=== PATIENT | female | born 1935 | race Caucasian/White ===

== ENCOUNTER 2024-07-25 14:27 | Inpatient (IN) | payer MEDICARE, OTHER, MEDICAID, SELFPAY ==
[2024-07-25] VITALS (7 sets, daily range): BP systolic 129–172; BP diastolic 51–83; PULSE 63–84; RESP 16–18; TEMP 36.6–36.8; O2SAT 92–99; BMI 21.1; BMI 20.9
--- NOTE | 2024-07-25 14:33 | EDS_ITS ---
HPI HPI - Fall History of Present Illness Chief Complaint: Fall Informant: patient Occured/Mechanism Occurred: Today Mechanism/Context: Yes same level fall Pain/Injury Location: Right hip Quality of Pain: Sharp Worsened by: Movement Relieved by: Rest Associated Symptoms Associated Symptoms: Positive for Inability to ambulate; Negative for Parasthesias, Weakness, Loss of function, Loss of consciousness or Amnesia Narrative Narrative: Patient presents with right hip pain that began after a fall today. Patient states she was reaching to open the door and she fell forward. Patient states she landed on her right hip. Patient states her pain is sharp. Patient states it is worse with movement. Patient states it is better with rest. Patient states she was unable to stand after the fall. Patient denies any head injury or loss of consciousness. Patient denies any other injuries. [facility] Medical History (Updated 07/25/24 @ 17:[address] Thanh Mclaughlin ) Polyneuropathy PVD (peripheral vascular disease) Osteoporosis Hypothyroidism GERD (gastroesophageal reflux disease) Hypertensive heart and chronic kidney disease stage 3 Anxiety Asthma Sleep apnea COPD (chronic obstructive pulmonary disease) Gout CKD (chronic kidney disease) stage 3, GFR 30-59 ml/min Major depressive disorder CHF (congestive heart failure) Allergy/AdvReac Type Severity Reaction Status Date / Time cephalexin Allergy PT UNSURE Verified 07/25/24 14:52 OF REACTION clarithromycin Allergy PT UNSURE Verified 07/25/24 14:52 OF REACTION clindamycin Allergy PT UNSURE Verified 07/25/24 14:52 OF REACTION erythromycin base Allergy PT UNSURE Verified 07/25/24 14:52 OF REACTION eszopiclone Allergy PT UNSURE Verified 07/25/24 14:52 OF REACTION Fish Containing Products Allergy PT UNSURE Verified 07/25/24 14:52 (seafood) OF REACTION fish derived Allergy PT UNSURE Verified 07/25/24 14:52 OF REACTION lincomycin Allergy PT UNSURE Verified 07/25/24 14:52 OF REACTION lorazepam Allergy PT UNSURE Verified 07/25/24 14:52 OF REACTION mushroom (mushrooms) Allergy PT UNSURE Verified 07/25/24 14:52 OF REACTION NSAIDS (Non-Steroidal Allergy PT UNSURE Verified 07/25/24 14:52 Anti-Inflamma OF REACTION Penicillins Allergy PT UNSURE Verified 07/25/24 14:52 OF REACTION rofecoxib Allergy PT UNSURE Verified 07/25/24 14:52 OF REACTION salicylates Allergy PT UNSURE Verified 07/25/24 14:52 OF REACTION temazepam Allergy PT UNSURE Verified 07/25/24 14:52 OF REACTION Tetracyclines Allergy PT UNSURE Verified 07/25/24 14:52 OF REACTION trazodone Allergy PT UNSURE Verified 07/25/24 14:52 OF REACTION Surgical History (Updated 07/25/24 @ 14:[address] Jacobo Moya DO) History of cataract surgery History of lysis of adhesions Hx of hysterectomy Hx of total knee replacement Presence of aortocoronary bypass graft Social History Smoking Status: Former smoker ROS ROS ED Constitutional Constitutional ED: Denies chills or fever(s) Eyes Eyes: Denies blurry vision or change in vision ENT ENT ED: Reports rhinorrhea; Denies sore throat Cardiovascular Cardiovascular: Denies chest pain or palpitations Respiratory/Chest Respiratory/Chest: Denies cough or dyspnea Gastrointestinal Gastrointestinal: Denies nausea or vomiting Genitourinary Genitourinary ED: Denies dysuria or hematuria Musculoskeletal Musculoskeletal: Denies back pain or neck pain Integumentary Denies abscess or rash Neurologic Neurologic: Denies headache(s) or weakness Allergic/Immunologic Allergic/Immunologic ED: Denies mouth swelling or urticaria EXAM Physical Exam Const Vital Signs: 07/25/24 14:32 Temperature 98.1 F Temperature Source Oral Pulse Rate 84 Respiratory Rate 16 Blood Pressure 130/55 H Blood Pressure Mean 80 Pulse Ox 95 Oxygen Delivery Method Nasal Cannula Oxygen Flow Rate (L/min) 2 Positive well nourished and well developed General Appearance ED: well developed HEENT Reports normocephalic atraumatic Neck full ROM and supple Resp normal respiratory effort and clear to auscultation bilaterally Cardio regular rate and regular rhythm GI non-tender and non-distended Palpation: soft Extremity Extremity Narrative: There is tenderness over the right hip. There is shortening and external rotation of the right lower extremity. There is pain with internal and external rotation of the right hip. Pedal pulses are equal bilaterally. Sensation was intact to light touch in the lower extremities bilaterally. There is no calf tenderness noted. Neuro oriented x3, CN's II-XII intact bilaterally, moves all extremities, no focal motor deficits and no sensory deficits noted Sensorium / Orientation: alert Motor Exam: strength 5/5 throughout Psych mental status grossly normal MDM MDM MDM Narrative Medical decision making narrative: Differential diagnosis includes hip fracture, contusion, sprain, and urinary tract infection. X-rays of the right hip will be obtained to assess for fracture. Since it is likely that there is a fracture of the patient's femoral neck, medical screening labs will be obtained. EKG will be obtained to assess for cardiac dysrhythmia and cardiac ischemia. Chest x-ray will be obtained to assess for pneumonia and bronchitis. CBC will be obtained to assess for leuko cytosis and anemia. Basic metabolic profile will be obtained to assess for electrolyte abnormality and renal function. PT with INR and PTT will be obtained to assess for coagulopathy. History & Record Review Additional record(s) reviewed:: Prior labs Lab Data Attestation: I reviewed the patient's lab results. Lab results narrative: CBC was reviewed. There is a mild anemia with a hemoglobin of 10.7 and hematocrit 31.6. The remainder is within normal limits. PT was INR and PTT were within normal limits. Basic metabolic profile was reviewed and was essentially within normal limits. Labs: Laboratory Results - last 24 hr 07/25/24 14:35 WBC 7.6 RBC 3.28 L Hgb 10.7 L Hct 31.6 L MCV 96.3 MCH 32.6 H MCHC 33.9 RDW Std Deviation 49.4 H RDW Coeff of Tamera 14.1 Plt Count 181 MPV 9.1 Immature Gran % (Auto) 0.400 Neut % (Auto) 69.2 Lymph % (Auto) 22.9 Kay % (Auto) 6.2 Eos % (Auto) 0.9 Baso % (Auto) 0.4 Absolute Neuts (auto) 5.3 Absolute Lymphs (auto) 1.75 Nucleated RBC % 0 PT 13.0 INR 1.0 APTT 27.1 Sodium 134 Potassium 5.0 Chloride 98 Carbon Dioxide 26.5 Anion Gap 9 BUN 13 Creatinine 0.92 Est GFR (MDRD) Non-Af 60 BUN/Creatinine Ratio 13.5 Glucose 126 H Calcium 8.8 Radiography Chest X-Ray - ED: 1 View, Read by ED Physician, Read by Radiologist and Cardiomegaly Diagnostic Testing: Clinical Impression(s) from Imaging Studies Hip/Pelvis X-Ray 07/25/24 15:10 IMPRESSION: Nondisplaced right intertrochanteric fracture of the proximal right femur. Reading Location: [facility] Chest X-Ray 07/25/24 15:15 IMPRESSION: Cardiomegaly and vascular congestion with atelectasis at the lung bases. Reading Location: [facility]-IR-1 Portable 1 view chest x-ray was obtained. On my independent interpretation, lung holden show mild vascular congestion and atelectasis at the lung bases. There is cardiomegaly. Bony thorax is normal. There is no acute process noted. Radiologist also interpreted the x-ray and agrees. X-rays of the right hip were obtained. There are 3 views. On my independent interpretation, there is a nondisplaced intertrochanteric fracture of the right. Radiologist also interpreted the x-rays and agrees. EKG Initial EKG: Attestation: I personally reviewed and interpreted this EKG as follows: Interpretation: Sinus Rhythm (66), RBBB and Non-Specific ST Changes Comments: EKG was obtained. On my independent interpretation, it shows a normal sinus rhythm with a rate of 66. GA interval was normal at 170 ms. QRS interval was prolonged at 144 ms. QTc interval was slightly prolonged at 484 ms. There is borderline right axis deviation at 105. There is a right bundle branch block pattern noted. There are nonspecific ST-T wave changes noted. Prior EKG tracings: not available for review Prior: No Prior Management Discussion w/another healthcare provider: Hospitalist and [employer] Supervisor Treatment and Re-Evaluation Narrative: Patient was advised of her findings. Patient was advised of need for hospitalization. Case was discussed with the hospitalist. He will admit the patient to his service. Case was discussed with Dr. Mclaughlin from orthopedics. He will be in to evaluate the patient. Discharge Plan Dx/Rx/DC Orders Clinical Impression: Closed intertrochanteric fracture of right hip, Fall, Elevated blood pressure reading Disposition Disposition: Acute Care [facility]
--- NOTE | 2024-07-25 14:49 | EKG12_ITS ---
Test Reason : FALL Blood Pressure : */* mmHG Vent. Rate : 66 BPM Atrial Rate : 66 BPM P-R Int : 170 ms QRS Dur : 144 ms QT Int : 462 ms P-R-T Axes : 33 105 10 degrees QTcB Int : 484 ms Normal sinus rhythm Right bundle branch block Abnormal ECG No previous ECGs available Confirmed by NITHYA HUGHES, RIGOBERTO ([id number]), editor city SANDY BAUTISTA ([id number]) on 07/28/2024 5:37:03 AM Referred By: Confirmed By: RIGOBERTO BARRIGA MD
--- NOTE | 2024-07-25 15:10 | RAD_ITS ---
PROCEDURE: HIP, UNI W/ PELVIS 2-3 VIEWS 07/25/2024 REASON FOR EXAM: INJURY/PAIN TECHNIQUE: HIP, UNI W/ PELVIS 2-3 VIEWS COMPARISON: None FINDINGS: Bones: Nondisplaced right intertrochanteric fracture. Joints: Degenerative changes of both hip joints as well as the sacroiliac joints. Soft tissues: Fecal material is seen in the colon. Other: RAD/HIP, UNI W/ Pelvis 2-3 Views IMPRESSION: Nondisplaced right intertrochanteric fracture of the proximal right femur. Reading Location: [facility]
[2024-07-25 15:13] LABS: Absolute Lymphocyte Count 1.75 X10^3/uL (0.83-4.51); Absolute Neutrophil Count 5.3 X10^3/uL (2.0-7.7); Basophil# 0.03 X10^3/uL; Basophil% 0.4 % (0-1); Eosinophil# 0.07 X10^3/uL; Eosinophils% 0.9 % (0-5); Hematocrit 31.6 % (37-47); Hemoglobin 10.7 g/dL (12.0-15.0); Lymphocyte # 1.75 X10^3/ul (0.83-4.51); Lymphocyte % 22.9 % (19-41); Mean Corp Hgb Conc 33.9 g/dL (32-36); Mean Corpuscular Hgb 32.6 pg (27.0-32.0); Mean Corpuscular Volume 96.3 fL (81-99); Mean Platelet Vol. 9.1 fl (6.2-12.0); Monocyte# 0.47 X10^3/uL; Monocyte% 6.2 % (0-10); NRBC Flagged by Analyzer 0 % (0-5); Neutrophil # 5.29 X10^3/uL (2.7-7.7); Neutrophil % 69.2 % (47-70); Platelet Count 181 K/mm3 (150-450); RBC Distribution Width CV 14.1 % (11.6-14.6); RBC Distribution Width SD 49.4 fl (35.1-43.9); Red Blood Count 3.28 M/mm3 (4.2-5.4); White Blood Count 7.6 K/mm3 (4.4-11.0)
--- NOTE | 2024-07-25 15:15 | RAD_ITS ---
PROCEDURE: CHEST 1 VIEW (PORTABLE) 07/25/2024 REASON FOR EXAM: COUGH TECHNIQUE: Frontal view of the chest. COMPARISON: None FINDINGS: Hardware: EKG electrodes are seen. 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 Moderate degree of cardiomegaly. Lungs: Increased markings at the lung bases suggestive of atelectasis and/or scarring. Mild degree of vascular congestion. Bones: Degenerative changes are identified within the thoracic spine. Other: Findings suggestive of hiatal hernia. RAD/Chest 1 View (Portable) IMPRESSION: Cardiomegaly and vascular congestion with atelectasis at the lung bases. Reading Location: [place] [address]
[2024-07-25] MEDS: Ondansetron 4 MG/2 ML Vial IV (15:32)
[2024-07-25] MEDS: Morphine 4 MG/ML Syringe IV ×2 (15:33→17:36)
[2024-07-25 15:51] LABS: Anion Gap 9 (5-15); BUN 13 mg/dL (4-19); BUN/Creat Ratio 13.5 RATIO (10-20); Calcium,Total 8.8 mg/dL (7.6-11.0); Carbon Dioxide 26.5 mmol/L (21.0-32.0); Chloride 98 mmol/L (98-108); Creatinine, Serum 0.92 mg/dL (0.70-1.20); EST Glomerular Filtration Rate 60 (>60); Glucose 126 mg/dL (70-99); Sodium Level 134 mmol/L (133-145)
[2024-07-25 16:01] LABS: Partial Thromboplast Time 27.1 Seconds (24.1-36.2)
--- NOTE | 2024-07-25 16:51 | PCM.HP.STD ---
HPI - General General Date of Admission: 07/25/24 Date of Service: 07/25/24 Chief Complaint: Fall with right hip pain HPI Narrative KATHERINE SEPULVEDA, is a 89 F who presented to [facility] ED on 07/25/2024 with right hip pain after a fall. Patient has history of chronic debility, lives at the [facility]. She had a fall today where she was reaching for her to open the door, fell forward and landed on her right hip. In the ED x-ray confirmed a nondisplaced intertrochanteric fracture. Case was discussed with Dr. Mclaughlin with orthopedics who planning for surgery tomorrow afternoon pending medical evaluation. Hospitalist was then contacted for admission. I saw the patient at bedside in the ED. Patient was fatigued appearing but otherwise laying back fairly comfortably in bed in no acute distress. She was alert and oriented x 3 for me. She stated that the pain medication had only been somewhat helpful for her. If she did not move her pain was controlled, but she did report moderate to severe pain with any movement. She denies any other acute concerns currently. Will be admitted for further management. [facility] Medical History (Updated 07/25/24 @ 22:[address] Hayden Diaz, DO) Polyneuropathy PVD (peripheral vascular disease) Osteoporosis Hypothyroidism GERD (gastroesophageal reflux disease) Hypertensive heart and chronic kidney disease stage 3 Anxiety Asthma Sleep apnea COPD (chronic obstructive pulmonary disease) Gout CKD (chronic kidney disease) stage 3, GFR 30-59 ml/min Major depressive disorder CHF (congestive heart failure) Home Medications ?Medication ?Instructions ?Recorded ?Last Taken ?Type acetaminophen 500 mg tablet 500 mg PO BID [ain 07/25/24 Unknown History atorvastatin 40 mg tablet 40 mg PO DAILY hyperlipidemia 07/25/24 Unknown History azelastine 137 mcg (0.1 %) nasal intranasal allergies 07/25/24 Unknown History spray budesonide 0.5 mg/2 mL suspension mg coppersmith helper 07/25/24 Unknown History for nebulization bupropion HCl 150 mg 24 hr tablet, 150 mg PO DAILY . 07/25/24 Unknown History extended release calcium carbonate PO . 07/25/24 Unknown History cetirizine 5 mg tablet 5 mg PO DAILY . 07/25/24 Unknown History clopidogrel 75 mg tablet 75 mg PO DAILY . 07/25/24 Unknown History dicyclomine 10 mg capsule 10 mg PO TID . 07/25/24 Unknown History doxazosin 2 mg tablet 2 mg PO DAILY . 07/25/24 Unknown History furosemide 20 mg tablet 20 mg PO DAILY . 07/25/24 Unknown History gabapentin 100 mg capsule PO . 07/25/24 Unknown History ipratropium 0.5 mg-albuterol 3 mg ml . 07/25/24 Unknown History (2.5 mg base)/3 mL nebulization soln isosorbide mononitrate 30 mg 30 mg PO DAILY . 07/25/24 Unknown History tablet,extended release 24 hr metoprolol tartrate 25 mg tablet 25 mg PO BID . 07/25/24 Unknown History mirtazapine 30 mg tablet 30 mg PO QHS . 07/25/24 Unknown History montelukast 10 mg tablet 10 mg PO DAILY . 07/25/24 Unknown History multivitamin with folic acid 400 1 tab PO DAILY . 07/25/24 Unknown History mcg tablet (Daily-Carmelo (with folic acid)) pantoprazole 40 mg tablet,delayed 40 mg PO DAILY . 07/25/24 Unknown History release potassium chloride 20 mEq 20 meq PO DAILY . 07/25/24 Unknown History tablet,extended release(part/cryst) sennosides 8.6 mg-docusate sodium 1 tab PO DAILY . 07/25/24 Unknown History 50 mg tablet (Senexon-S) Allergy/AdvReac Type Severity Reaction Status Date / Time cephalexin Allergy PT UNSURE Verified 07/25/24 14:52 OF REACTION clarithromycin Allergy PT UNSURE Verified 07/25/24 14:52 OF REACTION clindamycin Allergy PT UNSURE Verified 07/25/24 14:52 OF REACTION erythromycin base Allergy PT UNSURE Verified 07/25/24 14:52 OF REACTION eszopiclone Allergy PT UNSURE Verified 07/25/24 14:52 OF REACTION Fish Containing Products Allergy PT UNSURE Verified 07/25/24 14:52 (seafood) OF REACTION fish derived Allergy PT UNSURE Verified 07/25/24 14:52 OF REACTION lincomycin Allergy PT UNSURE Verified 07/25/24 14:52 OF REACTION lorazepam Allergy PT UNSURE Verified 07/25/24 14:52 OF REACTION mushroom (mushrooms) Allergy PT UNSURE Verified 07/25/24 14:52 OF REACTION NSAIDS (Non-Steroidal Allergy PT UNSURE Verified 07/25/24 14:52 Anti-Inflamma OF REACTION Penicillins Allergy PT UNSURE Verified 07/25/24 14:52 OF REACTION rofecoxib Allergy PT UNSURE Verified 07/25/24 14:52 OF REACTION salicylates Allergy PT UNSURE Verified 07/25/24 14:52 OF REACTION temazepam Allergy PT UNSURE Verified 07/25/24 14:52 OF REACTION Tetracyclines Allergy PT UNSURE Verified 07/25/24 14:52 OF REACTION trazodone Allergy PT UNSURE Verified 07/25/24 14:52 OF REACTION Surgical History (Updated 07/25/24 @ 14:[address] Jacobo Moya DO) History of cataract surgery History of lysis of adhesions Hx of hysterectomy Hx of total knee replacement Presence of aortocoronary bypass graft Social History Smoking Status: Never smoker ROS Constitutional Constitutional: Reports fatigue; Denies chills, fever(s) or weakness Eyes Eyes: Denies change in vision Cardiovascular Cardiovascular: Denies chest pain, dyspnea on exertion, edema, lightheadedness or palpitations Respiratory/Chest Respiratory/Chest: Denies cough or shortness of breath at rest Gastrointestinal Gastrointestinal: Denies abdominal pain Genitourinary Genitourinary: Denies dysuria Musculoskeletal Musculoskeletal: Reports joint pain; Denies myalgias Neurologic Neurologic: Denies dizziness, focal weakness or headache(s) Vital Signs Vital Signs Vital Signs: 07/25/24 14:32 Temperature 98.1 F Temperature Source Oral Pulse Rate 84 Respiratory Rate 16 Blood Pressure 130/55 H Blood Pressure Mean 80 Pulse Ox 95 Oxygen Delivery Method Nasal Cannula Oxygen Flow Rate (L/min) 2 Physical Exam Const alert, oriented x3, no apparent distress and average body habitus General Appearance: cooperative and comfortable HEENT normocephalic, head/scalp atraumatic, hearing grossly normal bilaterally, nasal mucous membranes and turbinates normal and moist oral mucous membranes Eyes PERRL, EOMs intact bilaterally and conjunctivae normal Neck full ROM Chest inspection of chest normal Resp normal respiratory effort, normal air movement, no use of accessory muscles and clear to auscultation bilaterally Resp Narrative: Breathing comfortably on 4 L nasal cannula at rest. Mild crackles noted and bilateral bases but otherwise good air movement throughout with no wheezing noted. Cardio regular rate, regular rhythm, no murmurs and peripheral pulses 2+ throughout GI normal to inspection, nondistended, normoactive bowel sounds, soft to palpation, non-tender and non-distended Back/Spine normal ROM Extremity Extremity Narrative: Right hip with tenderness to palpation. Did not attempt any movement of the hip. Skin no rashes or lesions noted Psych mental status grossly normal Results Lab / Micro Data 07/25/24 14:35 07/25/24 14:35 Labs: Laboratory Results - last 24 hr 07/25/24 14:35: WBC 7.6, RBC 3.28 L, Hgb 10.7 L, Hct 31.6 L, MCV 96.3, MCH 32.6 H, MCHC 33.9, RDW Std Deviation 49.4 H, RDW Coeff of Tamera 14.1, Plt Count 181, MPV 9.1, Immature Gran % (Auto) 0.400, Neut % (Auto) 69.2, Lymph % (Auto) 22.9, [place] % (Auto) 6.2, Eos % (Auto) 0.9, Baso % (Auto) 0.4, Absolute Neuts (auto) 5.3, Absolute Lymphs (auto) 1.75, Nucleated RBC % 0, PT 13.0, INR 1.0, APTT 27.1, Sodium 134, Potassium 5.0, Chloride 98, Carbon Dioxide 26.5, Anion Gap 9, BUN 13, Creatinine 0.92, Est GFR (MDRD) Non-Af 60, BUN/Creatinine Ratio 13.5, Glucose 126 H, Calcium 8.8 Imaging Radiology Impression Hip/Pelvis X-Ray 07/25/24 15:10 IMPRESSION: Nondisplaced right intertrochanteric fracture of the proximal right femur. Reading Location: [facility]-IR-1 Chest X-Ray 07/25/24 15:15 IMPRESSION: Cardiomegaly and vascular congestion with atelectasis at the lung bases. Reading Location: [facility]-1 Assessment & Plan Assessment/Plan (1) Closed intertrochanteric fracture of right hip: QUALIFIERS: Encounter type: initial encounter Fracture alignment: displaced Qualified Code(s): S72.141A - Displaced intertrochanteric fracture of right femur, initial encounter for closed fracture (2) Acute on chronic heart failure with preserved ejection fraction (HFpEF): PLAN: Plan Patient is an 89-year-old female who presented to [facility] ED on 07/25/2024 with right hip pain after a mechanical fall. 1. Right hip fracture ? Admit under inpatient status to [facility]. Orthopedic surgery consulted. PT/OT/case management consulted. Presented with right hip pain after mechanical fall. Hip/pelvis and femur x-rays confirmed a nondisplaced radial fracture. Per orthopedic surgery, planning for OR for right femur cephalomedullary fixation once medically optimized. Preoperative evaluation as noted below. Pain control with scheduled Tylenol, p.o. oxycodone as needed and IV Dilaudid as needed. DVT prophylaxis per orthopedic surgery. 2. Mild acute on chronic HFpEF with hypoxia, history of CAD with stenting, hypertension, hyperlipidemia, history of CVA ? Last echo in 10/2022 showed EF 70%, LA enlargement but no diastolic dysfunction, no valvular issues. Chest x-ray on admit with cardiomegaly with vascular congestion and atelectasis at lung bases. Not on home oxygen and requiring up to 4 L nasal cannula on admission to maintain appropriate oxygen saturations. Mild lower extremity edema on exam. Patient is normotensive and in normal sinus rhythm, and EKG with no ischemic changes noted. However, will obtain BNP and troponins for further evaluation now and repeat echocardiogram ordered. Will give dose of IV Lasix 40 mg now and give another dose tomorrow morning. Monitor urine output and wean supplemental oxygen as able. Okay to continue home Lopressor, doxazosin, Lasix and Imdur. Continue home statin. Holding Plavix for procedure. 3. Preoperative evaluation ? NSQIP score: Patient is at above average risk of any complication answers complication given age, partially dependent functional status, CHF and hypertension. ? Labs/imaging: Hemoglobin and kidney function stable at baseline. No further labs or imaging required preoperatively. Follow-up CBC and BMP postoperatively. ? Cardiac workup: Mild HFpEF exacerbation as noted above. Repeat echocardiogram, BNP and troponins ordered. ? Medications: Okay to continue Lopressor, doxazosin, Lasix and Imdur. Holding Plavix for procedure, will defer to orthopedics on timing of restarting. ? Prior procedural complications: None. ? Recommendation: Recommend holding on procedure until cardiac workup as above has resulted and patient has been optimized from a volume status standpoint. Will keep patient n.p.o. at midnight in case procedure can be done tomorrow afternoon. 4. Acute on chronic debility, history of bilateral knee replacements ? PT/OT/case management consulted as above. Lives in [facility], will likely be okay to return there on discharge. 5. Mild chronic anemia ? Hemoglobin stable at baseline 10-11 on admission. 6. Anxiety/depression ? Stable. Continue home bupropion and mirtazapine. 7. GERD ? Continue home PPI. DVT prophylaxis: SCDs CODE STATUS: DNR CCA, DNI Expected disposition: Likely back to long-term, TBD Total clinical time spent by myself addressing the patient's medical issues, reviewing all the data, and collaborating with patient's care team: 75 minutes. Charges/Coding Visit Charges Inpatient E&M: 21810 Init Hosp L3
--- NOTE | 2024-07-25 17:06 | PCM.CONS.GEN ---
Assessment & Plan Assessment/Plan (1) Closed intertrochanteric fracture of right hip: QUALIFIERS: Encounter type: initial encounter Fracture alignment: displaced Qualified Code(s): S72.141A - Displaced intertrochanteric fracture of right femur, initial encounter for closed fracture PLAN: Plan Pleasant 89-year-old female frail ground-level fall community ambulator. Sustained right hip intertrochanteric femur fracture History of right total knee arthroplasty Will obtain right femur x-ray Plan for OR 07/26/2024 afternoon if medically cleared right femur cephalomedullary fixation Hold anticoagulant Multiple drug allergies vancomycin ordered preop within 1 hour prior to incision TXA ordered preop HPI Consult Data Date of Consult: 07/25/24 HPI Narrative HPI Narrative: KATHERINE SEPULVEDA, is a 89 F who presents after ground-level fall onto right hip. She immediately had pain and inability ambulate x-rays taken the emergency room department demonstrated a intertrochanteric fracture with lesser trochanteric displacement. Of note she did have prior right total knee arthroplasty many years ago with Dr. Malcom Herron in [facility]. She is on Plavix [facility] Medical History (Updated 07/25/24 @ 17:[address] Thanh Mclaughlin, ) Polyneuropathy PVD (peripheral vascular disease) Osteoporosis Hypothyroidism GERD (gastroesophageal reflux disease) Hypertensive heart and chronic kidney disease stage 3 Anxiety Asthma Sleep apnea COPD (chronic obstructive pulmonary disease) Gout CKD (chronic kidney disease) stage 3, GFR 30-59 ml/min Major depressive disorder CHF (congestive heart failure) Allergy/AdvReac Type Severity Reaction Status Date / Time cephalexin Allergy PT UNSURE Verified 07/25/24 14:52 OF REACTION clarithromycin Allergy PT UNSURE Verified 07/25/24 14:52 OF REACTION clindamycin Allergy PT UNSURE Verified 07/25/24 14:52 OF REACTION erythromycin base Allergy PT UNSURE Verified 07/25/24 14:52 OF REACTION eszopiclone Allergy PT UNSURE Verified 07/25/24 14:52 OF REACTION Fish Containing Products Allergy PT UNSURE Verified 07/25/24 14:52 (seafood) OF REACTION fish derived Allergy PT UNSURE Verified 07/25/24 14:52 OF REACTION lincomycin Allergy PT UNSURE Verified 07/25/24 14:52 OF REACTION lorazepam Allergy PT UNSURE Verified 07/25/24 14:52 OF REACTION mushroom (mushrooms) Allergy PT UNSURE Verified 07/25/24 14:52 OF REACTION NSAIDS (Non-Steroidal Allergy PT UNSURE Verified 07/25/24 14:52 Anti-Inflamma OF REACTION Penicillins Allergy PT UNSURE Verified 07/25/24 14:52 OF REACTION rofecoxib Allergy PT UNSURE Verified 07/25/24 14:52 OF REACTION salicylates Allergy PT UNSURE Verified 07/25/24 14:52 OF REACTION temazepam Allergy PT UNSURE Verified 07/25/24 14:52 OF REACTION Tetracyclines Allergy PT UNSURE Verified 07/25/24 14:52 OF REACTION trazodone Allergy PT UNSURE Verified 07/25/24 14:52 OF REACTION Surgical History (Updated 07/25/24 @ 14:[address] Jacobo Moya DO) History of cataract surgery History of lysis of adhesions Hx of hysterectomy Hx of total knee replacement Presence of aortocoronary bypass graft Social History Smoking Status: Former smoker Physical Exam Const alert, oriented x3 and no apparent distress Constitutional Narrative: She is seen with her son who is her power of assistant attorney general Appearance: cooperative Extremity Extremity Narrative: Exquisitely positive logroll, she does have a scar on her knee from her prior knee replacement surgery it is large. She is neurovascular intact although she does have chronic neuropathy of her foot. Her compartments are soft palpable pedal pulses intact sensation to light touch she is able to wiggle toes and ankle. Lab / Micro Data 07/25/24 14:35 07/25/24 14:35 Labs: Laboratory Results - last 24 hr 07/25/24 14:35: WBC 7.6, RBC 3.28 L, Hgb 10.7 L, Hct 31.6 L, MCV 96.3, MCH 32.6 H, MCHC 33.9, RDW Std Deviation 49.4 H, RDW Coeff of Tamera 14.1, Plt Count 181, MPV 9.1, Immature Gran % (Auto) 0.400, Neut % (Auto) 69.2, Lymph % (Auto) 22.9, [place] % (Auto) 6.2, Eos % (Auto) 0.9, Baso % (Auto) 0.4, Absolute Neuts (auto) 5.3, Absolute Lymphs (auto) 1.75, Nucleated RBC % 0, PT 13.0, INR 1.0, APTT 27.1, Sodium 134, Potassium 5.0, Chloride 98, Carbon Dioxide 26.5, Anion Gap 9, BUN 13, Creatinine 0.92, Est GFR (MDRD) Non-Af 60, BUN/Creatinine Ratio 13.5, Glucose 126 H, Calcium 8.8 Imaging Radiology Impression Hip/Pelvis X-Ray 07/25/24 15:10 IMPRESSION: Nondisplaced right intertrochanteric fracture of the proximal right femur. Reading Location: [facility]- Chest X-Ray 07/25/24 15:15 IMPRESSION: Cardiomegaly and vascular congestion with atelectasis at the lung bases. Reading Location: [facility]-
--- NOTE | 2024-07-25 17:10 | CASEMGMT ---
Social Work SW met with patient and patients son. Patient states she is planning to return to [facility] when able. No further needs identified at this time. Stefani Coates, TETRYL BOILING TUB OPERATOR, SENIOR NET WEB DEVELOPER
--- NOTE | 2024-07-25 17:20 | ED.RN ---
multiple attempts by [address] catheter[address] unsuccessful. to place purewic.
--- NOTE | 2024-07-25 17:40 | RAD_ITS ---
PROCEDURE: FEMUR MIN 2 VIEWS 07/25/2024 REASON FOR EXAM: FRACTURE SURGERY PLANNING TECHNIQUE: FEMUR MIN 2 VIEWS COMPARISON: 07/25/2024 radiograph. FINDINGS: Right knee arthroplasty. Nondisplaced intertrochanteric fracture of the right femur. Degenerative changes of the right hip. RAD/Femur Min 2 Views IMPRESSION: Nondisplaced intertrochanteric fracture. Reading Location: [place] [id number]
--- NOTE | 2024-07-25 17:42 | ED.RN ---
pt not on wt bed. unable to obtain wt at this time.
[2024-07-25] MEDS: oxyCODONE 5 MG Tablet PO (18:51)
[2024-07-25] MEDS: Acetaminophen 500 MG Tablet 1000 MG PO ×2 (18:52→22:28)
[2024-07-25 19:08] LABS: Bacteria 0 SEEN /hpf (None Seen); Mucous, Urine 0 SEEN /hpf (<or=2+)
[2024-07-25 19:11] LABS: Color, Urine Straw (Yellow); Glucose, Dipstick Normal (Normal); Ketone-Dipstick Negative (Negative); Leukocyte Esterase-Dipstick Negative /ul (Negative); Nitrite-Dipstick Negative (Negative); Occult Blood-Urine 10 /ul (Negative); Protein-Dipstick 30 mg/dl (Negative); Urine Bilirubin Dipstick Negative (Negative); Urine Clarity Clear (Clear); Urine Urobilinogen Normal (Normal)
[2024-07-25 19:20] LABS: Red Blood Cells-Urine 0-5 SEEN /hpf (0-5); Squamous Epithelial Cells - UA 0-5 SEEN /hpf (5-10); Transitional Epithelial - Ur 0-5 SEEN /hpf (0-5); White Blood Cells 0-5 SEEN /hpf (0-5)
[2024-07-25] MEDS: Furosemide 40 MG/4 ML Vial IV (22:16)
[2024-07-25] MEDS: HYDROmorphone 0.5 MG/0.5 ML SYRINGE IV (22:16)
[2024-07-25] MEDS: 0.9% Saline Lock 10 ML Syringe IV (22:20)
--- NOTE | 2024-07-25 22:20 | ECHOD_ITS ---
Reason For Study Reason For Study: CHF Procedure This was a 2D Doppler, Color Flow transthoracic echocardiogram. Exam performed portable in patient room. Left Ventricle Normal LV size. Left ventricular systolic function is normal. The left ventricular ejection fraction is 70 %. Stage 1 diastolic dysfunction. No regional wall motion abnormalities noted. Right Ventricle Normal RV size. Normal systolic function. Atria Normal left atrium. Normal right atrium. Hypermobile atrial septum. Mitral Valve There is mild mitral annular calcification. Posterior leaflet mitral valve prolapse. Mild-Moderate (1-2+) anteriorly directed mitral valve insufficiency. Tricuspid Valve Mild focal thickening of the tricuspid valve, posterior leaflet. Moderate (2+) tricuspid valve insufficiency. Pulmonary artery systolic pressure is 65 mmHg. Moderate pulmonary hypertension. Aortic Valve Trisinus/trileaflet aortic valve. Mild focal aortic valve calcification. Pulmonic Valve Normal pulmonic valve. Great Vessels Mildly calcified aortic root. The pulmonary artery is normal size. Normal inferior vena cava. Pericardium/Pleural No pericardial effusion. Medication Performed a rapid injection of agitated mix of 9 cc saline and 1cc air to assess for atrial septal defect. MMode/2D Measurements & Calculations LVIDd: 3.3 cm IVSd: 1.2 cm Ao root diam: 2.8 cm LVIDs: 1.8 cm LVPWd: 1.2 cm RVDd: 3.8 cm FS: 44.9 % LAV(MOD-bp): 55.0 ml LVAd ap4: 17.6 cm2 SV(MOD-sp4): 33.7 ml LAV(MOD-sp2): 44.5 ml LVLd ap4: 5.5 cm LAV(MOD-sp4): 69.7 ml EDV(MOD-sp4): 47.0 ml EDV(sp4-el): 47.7 ml LVAs ap4: 8.2 cm2 LVLs ap4: 4.1 cm ESV(MOD-sp4): 13.3 ml ESV(sp4-el): 13.8 ml EF(MOD-sp4): 71.8 % EF(sp4-el): 71.0 % SV(sp4-el): 33.9 ml LA A4 area: 22.4 cm2 LA dimension(2D): 3.0 cm RA A4 area: 13.4 cm2 TAPSE: 2.0 cm Time Measurements MV dec time: 0.31 sec Doppler Measurements & Calculations MV E max jorge: 61.4 cm/sec Lat Peak E' Jorge: 6.6 cm/sec Med Peak E' Jorge: 4.1 cm/sec MV A max jorge: 102.8 cm/sec E/E' lat: 9.3 E/E' med: 14.9 MV E/A: 0.60 MV dec slope: 196.4 cm/sec2 Ao V2 max: 189.7 cm/sec LV V1 max: 109.1 cm/sec Ao max P.4 mmHg LV V1 max P.8 mmHg Ao V2 mean: 125.0 cm/sec Ao mean P.2 mmHg Ao V2 VTI: 41.2 cm PA V2 max: 121.8 cm/sec PI end-d jorge: 126.4 cm/sec TR max jorge: 389.7 cm/sec TR max P.7 mmHg ECHO/Echo Complete Interpretation Summary Hypermobile atrial septum. Normal LV size. Left ventricular systolic function is normal. The left ventricular ejection fraction is 70 %. Stage 1 diastolic dysfunction. Mild-Moderate (1-2+) anteriorly directed mitral valve insufficiency. Posterior leaflet mitral valve prolapse. Moderate pulmonary hypertension. Ordering Physician: Hayden Diaz Referring Physician: Kam Ocampo Performed By: Celeste Gore, YUKI, RVT
[2024-07-25] MEDS: Metoprolol Tartrate 25 MG Tablet PO (22:24)
[2024-07-25] MEDS: Atorvastatin Calcium 40 MG Tablet PO (22:24)
[2024-07-25] MEDS: Mirtazapine 30 MG Tablet PO (22:25)
[2024-07-25 23:17] LABS: Troponin T High Sensitivity 24 ng/L (<=14)
[2024-07-25 23:37] LABS: Pro- Brain NATRIURETIC PEPTIDE 538 pg/mL (<=1800)
--- OUTSIDE RECORDS SUMMARY | 2024-07-25 23:41 | XMS RPT_ITS | CCD ---
Author Organization [facility] Care Team Providers Care Seismology Teacher Name Role Phone Tavon-Babar, Vincenta Unavailable Unavailable Tavon-Babar, Vincenta Unavailable Unavailable Hugo, Chenguttai Jayaram Unavailable Unav ailable Hugo, Chenguttai Jayaram Unavailable Unav ailable Hugo, Chenguttai Jayaram Unavailable Unav ailable Hugo, Chenguttai Jayaram Unavailable Unav ailable Hugo, Chenguttai Jayaram Unavailable Unav ailable Hugo, Chenguttai Jayaram Unavailable Unav ailable EstelitaSpencer Unavailable Unavailable Hugo, Chenguttai Jayaram Unavailable Unav ailable Sumit, Manny P Unavailable Unavailable Sumit, Manny P Unavailable Unavailable Sumit, Manny P Unavailable Unavailable Sumit, Manny P Unavailable Unavailable Sumit, Manny P Unavailable Unavailable Hugo, Chenguttai Jayaram Unavailable Unav ailable Hugo, Chenguttai Jayaram Unavailable Unav ailable Razmjouei, Karim Unavailable Unavailable Razmjouei, Karim Unavailable Unavailable Razmjouei, Karim Unavailable Unavailable Hugo, Chenguttai Jayaram Unavailable Unav ailable Hugo, Chenguttai Jayaram Unavailable Unav ailable EDWIN, FINESSE K Unavailable Unavailable Hugo, Chenguttai Jayaram Unavailable Unav ailable Pattie, Sajid Unavailable Unavailable Hugo, Chenguttai Jayaram Unavailable Unav ailable Hugo, Chenguttai Jayaram Unavailable Unav ailable Hugo, Chenguttai Jayaram Unavailable Unav ailable Hugo, Chenguttai Jayaram Unavailable Unav ailable Hugo, Chenguttai Jayaram Unavailable Unav ailable Gandhi, Aria Jameel Unavailable Unavailable Gandhi, Aria Jameel Unavailable Unavailable Gandhi, Aria Jameel Unavailable Unavailable Hugo, Chenguttai Jayaram Unavailable Unav ailable Hugo, Chenguttai Jayaram Unavailable Unav ailable Tapia, Jessenia Celsa Unavailable Unavailabl e Tapia, Jessenia Celsa Unavailable Unavailabl e Estelita, Spencer Lane Unavailable Unavailable Hugo, Chenguttai Jayaram Unavailable Unav ailable Cheres, Daniel-Maximo Unavailable Unavailable Hugo, Chenguttai Jayaram Unavailable Unav ailable Cheres, Daniel-Maximo Unavailable Unavailable RAGINI ROSLYN SMITH Unavailable Unavailable Hugo, Chenguttai J Unavailable Unavailroro e Christ Gardiner Unavailable Unavailable Christ Gardiner Unavailable Unavailabl e Hugo, Chenguttai J Unavailable Unavailabl e Senthil, Crystal L Unavailable Unavailable Costa Nieto J Unavailable Unavailable Christ Gardiner Unavailable Unavailable Christ Gardiner Unavailable [phone] Unavailable Unavailable Christ Gardiner DO Primary Care Provider Jeff DANCE ARTIST-COMMUNITY LIVING SPECIALIST, Apple Unavailable [phone] CHRIST GARDINER Primary Care Unavailroro e Jeff, MsLeigh Chiu Attending Unavailable Rashad Agosto, Dr. Christ Barron Primary Care [facility] Rashad Agosto, Dr. Christ Barron Attending [facility] Rashad Agosto, Dr. Christ Barron Primary Care [facility] JEFF, GILBERT CHIU Attending Unavailable Rashad Agosto, Dr. Christ Barron Primary Care [facility] Rashda Agosto, Dr. Christ Barron Primary Care [facility] Rashad Agosto, Dr. Christ Barron Attending [facility] Rashad Agosto, Dr. Christ Barron Primary Care [facility] Rashad Agosto, Dr. Christ Barron Attending [facility] Rashad Agosto, Dr. Christ Barron Attending [facility] Rashad Agosto, Dr. Christ Barron Referring [facility] Rashad Agosto, Dr. Christ Barron Primary Care [facility] JEFF, GILBERT CHIU Attending Unavailable Rashad Agosto, Dr. Christ Barron Primary Care [facility] Rashad Agosto, Dr. Christ Barron Primary Care [facility] JEFF, COMMUNITY LIVING SPECIALIST [place] Attending Unavailable Van Nostran Christ LAU Unavailable VAN NOSTRAN, CHRIST E Attending Unavailabl e VAN NOSTRAN, CHRIST E Referring Unavailabl e VAN NOSTRAN, CHRIST E Primary Care Unavailabl e VAN NOSTRAN, CHRIST E Attending Unavailabl e VAN NOSTRAN, CHRIST E Primary Care Unavailabl e VAN NOSTRAN, CHRIST E Attending Unavailabl e VAN NOSTRAN, CHRIST E Primary Care Unavailabl e VAN NOSTRAN, CHRIST E Attending Unavailabl e VAN NOSTRAN, CHRIST E Primary Care Unavailabl e VAN NOSTRAN, CHRIST E Referring Unavailabl e VAN NOSTRAN, CHRIST E Attending Unavailabl e VAN NOSTRAN, CHRIST E Referring Unavailabl e VAN NOSTRAN, CHRIST E Primary Care Unavailabl e VAN NOSTRAN, SAIDA Primary Care Unavailable AKIL LUCIO Admitting Unavailable EDER MONTERROSO Attending Unavailable Van Nostran, Saida Primary Care Provider [phone] Dr. Jacobo Moya DO Emergency Provider Dr. Kam Ocampo Sr., DO Primary Care Provider Dr. Hayden Diaz DO Admit Provider [phone] Dr. Hayden Diaz DO Attending Provider Dr. Thanh Mclaughlin DO Attending Provider Allergies Allergy Classification Reported Allergen(s) Allergy Type Date of Onset Reaction(s) Facility Aspirin (4 sources) Aspirin; Translations: [Aspirin TABS] Drug Allergy [facility] Work Phone: Benzodiazepines (8 sources) LORazepam; Translations: [Ativan TABS] Drug Allergy [facility] Work Phone: Cephalosporins (antibiotic) (4 sources) Cephalexin; Translations: [Keflex TABS] Drug Allergy [facility] Work Phone: Eszopiclone (4 sources) Eszopiclone; Translations: [Lunesta] Drug Allergy [facility] Work Phone: Fish (4 sources) fish, unspecified Food Allergy [facility] Work Phone: Lincomycin (4 sources) Lincomycin; Translations: [Lincocin SOLN] Drug Allergy [facility] Work Phone: Lincosamides (antibiotic) (4 sources) Clindamycin; Translations: [Clindamycin] Drug Allergy [facility] Work Phone: Macrolides (antibiotic) (4 sources) Clarithromycin; Translations: [Biaxin TABS] Drug Allergy [facility] Work Phone: Mold Extract (4 sources) Mold Extract Drug Allergy [facility] Work Phone: NSAIDs (4 sources) NSAIDs; Translations: [NSAIDs] Drug Allergy [facility] Work Phone: Penicillins (antibiotic) (4 sources) Penicillins; Translations: [Penicillins] Drug Allergy [facility] Work Phone: Pollen (4 sources) bee pollen Substance Allergy [facility] Work Phone: rofecoxib (4 sources) rofecoxib; Translations: [Vioxx TABS] Drug Allergy [facility] Work Phone: Serotonin Reuptake Inhibitors (SSRIs) (4 sources) traZODone; Translations: [trazodone] Drug Allergy [facility] Work Phone: Tetracyclines (antibiotic) (4 sources) Tetracyclines; Translations: [Tetracyclines] Drug Allergy [facility] Work Phone: (20 sources) Aspirin; Translations: [Aspirin TABS] Drug Allergy 03-02-[address] [facility] (20 sources) bee pollen allergy to substance [facility] Work Phone: (20 sources) Cephalexin; Translations: [Keflex TABS] Drug Allergy 02-16-19 10 Unknown, Hives [facility] Work Phone: (20 sources) Clarithromycin; Translations: [Biaxin TABS] Drug Allergy 03-02-19 23 Unknown [facility] Work Phone: (20 sources) Clindamycin; Translations: [Clindamycin] Drug Allergy 10-14-19 21 Unknown [facility] Work Phone: (20 sources) fish, unspecified allergy to substance [facility] Work Phone: [phone] (20 sources) Lincomycin; Translations: [Lincocin SOLN] Drug Allergy 05-26-19 10 Unknown, Nausea And Vomiting, Rash [facility] Work Phone: (20 sources) LORazepam; Translations: [Ativan TABS] Drug Allergy 03-02-19 23 Unknown [facility] Work Phone: (20 sources) NSAIDs; Translations: [NSAIDs] drug allergy [facility] Work Phone: (20 sources) Penicillins; Translations: [Penicillins] drug allergy 03-02-19 [facility] (20 sources) rofecoxib; Translations: [Vioxx TABS] Drug Allergy 03-02-19 23 Unknown [facility] Work Phone: (20 sources) Tetracyclines; Translations: [Tetracyclines] drug allergy 03-02-19 [facility] (1 source) drug allergy [facility] Work Phone: (1 source) drug allergy [facility] Work Phone: [phone] (20 sources) Erythromycin Derivatives; Translations: [Erythromycin Derivatives] drug allergy [facility] Work Phone: (1 source) allergy to substance [facility] Work Phone: (1 source) allergy to substance [facility] Work Phone: (1 source) drug allergy [facility] Work Phone: (1 source) drug allergy [facility] Work Phone: (1 source) drug allergy [facility] Work Phone: (1 source) allergy to substance [facility] Work Phone: (1 source) allergy to substance [facility] Work Phone: (1 source) drug allergy [facility] Work Phone: [phone] (20 sources) Eszopiclone; Translations: [Lunesta] Drug Allergy [facility] Work Phone: [phone] (20 sources) Mold Extract; Translations: [MOLD] Drug Allergy 03-02-19 Unknown [facility] Work Phone: (20 sources) Temazepam; Translations: [Restoril] Drug Allergy [facility] Work Phone: [phone] (20 sources) traZODone; Translations: [trazodone] Drug Allergy 03-02-19 Unknown [facility] Work Phone: (20 sources) Other; Translations: [OTHER] allergy to substance 03-02-19 Unknown [facility] Work Phone: (20 sources) Doxazosin; Translations: [Cardura] Drug Allergy 03-02-19 Unknown [facility] Work Phone: (7 sources) Bee pollen; Translations: [BEE POLLEN] Drug Allergy 03-02-[address] [facility] Work Phone: (9 sources) Erythromycin; Translations: [ERYTHROMYCIN BASE] Drug Allergy 03-02-[address] [facility] Work Phone: (8 sources) Eszopiclone; Translations: [ESZOPICLONE] Drug Allergy 03-02-[address] [facility] Work Phone: (7 sources) Non-steroidal anti-inflammatory agent; Translations: [NSAIDS (NON-STEROIDAL ANTI-INFLAMMATORY DRUG)] Drug Allergy 03-02-[address] [facility] Work Phone: (5 sources) Penicillins Drug Allergy 03-02-[address] [facility] Work Phone: (6 sources) Salicylic Acid; Translations: [SALICYLATES] Drug Allergy 02-16-[address] [facility] Work Phone: (8 sources) Temazepam; Translations: [TEMAZEPAM] Drug Allergy 03-02-[address] [facility] Work Phone: (5 sources) Tetracycline (class of antibiotic) Drug Allergy 03-02-[address] [facility] Work Phone: (2 sources) Aspirin; Translations: [ASPIRIN] Drug Allergy 03-02-19 [facility] (2 sources) Cephalexin; Translations: [CEPHALEXIN] Drug Allergy 03-02-19 [facility] (3 sources) Clarithromycin; Translations: [CLARITHROMYCIN] Drug Allergy 10-14-19 [facility] (3 sources) Doxazosin; Translations: [DOXAZOSIN] Drug Allergy 03-02-19 Unknown [facility] (2 sources) Lincomycin; Translations: [LINCOMYCIN] Drug Allergy 03-02-19 [facility] (3 sources) LORazepam; Translations: [LORAZEPAM] Drug Allergy 10-14-19 [facility] (3 sources) rofecoxib; Translations: [ROFECOXIB] Drug Allergy 02-16-19 Unknown [facility] (4 sources) Fish; Translations: [FISH CONTAINING PRODUCTS] Drug Intolerance 10-14-[address] [facility] (1 source) Eszopiclone Drug Allergy 10-14-19 Unknown [facility] (1 source) Fish - dietary Propensity to adverse reactions 10-14-19 Anaphylaxis [facility] (1 source) Non-steroidal anti-inflammatory agent Drug Allergy 10-14-19 21 [facility] (1 source) Penicillins Drug Allergy 02-16-19 10 [facility] (1 source) Salicylic Acid Drug Allergy 02-16-19 10 GI bleeding, Unknown [facility] (1 source) Temazepam Allergy to substance 03-02-19 23 [facility] (1 source) Tetracycline (class of antibiotic) Drug Allergy 02-16-19 10 [facility] (1 source) cultivated mushroom extract Drug Allergy 07-26-19 25 PT UNSURE OF REACTION [facility] (1 source) Fish derivative Allergy to substance 07-26-19 25 PT UNSURE OF REACTION [facility] (1 source) Nonsteroidal Anti-inflammatory Compounds Allergy to substance 07-26-19 25 PT UNSURE OF REACTION [facility] (1 source) Penicillins Allergy to substance 07-26-19 25 PT UNSURE OF REACTION [facility] (1 source) Salicylic Acid Drug Allergy 07-26-19 25 PT UNSURE OF REACTION [facility] (1 source) Tetracyclines Allergy to substance 07-26-19 25 PT UNSURE OF REACTION [facility] (1 source) Fish Containing Products Allergy to substance 07-26-19 25 PT UNSURE OF REACTION [facility] Medications Current Medications Medication Drug Class(es) Dates Sig (Normalized) Sig (Original) acetaminophen 500 mg oral tablet (20 sources) Start: 07-25-2024 take 1 tablet by mouth twice daily Acetaminophen 500 mg tablet Active 500 mg PO TWICE A DAY July 25, 2024 12:00am Start: 10-10-2022 End: 10-16-2022 take 1 tablet by mouth every six hours as needed for pain and fever acetaminophen (Tylenol) tablet 650 mg Tylenol 500 MG C APS Quantity: 0 Refills: 0 Ordered: 21-Dec-2018 DO Active acetaminophen (T ylenol) 500 MG tablet Take 500 mg by mouth. 0 Active acetaminophen 50 0 mg capsule Take by mouth. 0 Active albuterol 0.833 mg/ml / ipratropium bromide 0.167 mg/ml inhalation solution (2 sources) Anticholinergic, beta2-Adrenergic Agonist Start: 07-25-2024 Ipratropium-Albuterol 0.5 mg-3 mg(2.5 mg base)/3 mL solution for nebulization Active mL July 25, 2024 12:00am Start: 10-10-2022 End: 10-16-2022 ipratropium-albuterol (Duo-N eb) 0.5-2.5 mg/3 mL nebulizer solution 3 mL atorvastatin 40 mg oral tablet (20 sources) HMG-CoA Reductase Inhibitor Start: 07-25-2024 take 1 tablet by mouth once daily Atorvastatin 40 mg tablet Active 40 mg PO DAILY July 25, 2024 12:00am Start: 10-05-2017 End: 10-16-2022 take 1 tablet by mouth once daily Atorvastatin Calcium 10 MG Oral Tablet TAKE 1 TABLET DAILY. Quantity: 90 Refills: 3 Ordered: 27-Aug-2022 Apple Zayas Start : 05-Oct-2017 Active azelastine hydrochloride 0.137 mg/actuat metered dose nasal spray (6 sources) Histamine-1 Receptor Antagonist Start: 07-25-2024 Azelastine 137 mcg ( 0.1 %) spray,non-aerosol Active INTRANASAL July 25, 2024 12:00am Start: 10-27-2022 Azelastine HCl - 0.1 % Nasal Solution Quantity: 0 Refills: 0 Ordered: 27-Oct-2022 DO Start : 27-Oct-2022 Active Start: 10-07-2022 End: 08-03-2023 take 1 spray(s) nasal route twice daily 1 spray, Each Nostril, 2 times daily, First dose on 10/11/22 at 0915 take 1 spray(s) nasa l route twice daily azelastine (Astelin) 0.1 % nasal spray Administer 1 spray into each nostril 2 times daily. Use in each nostril as directed 0 Active budesonide 0.25 mg/ml inhalation suspension (1 source) Corticosteroid Start: 07-25-2024 Budesonide 0.5 mg/2 mL suspension for nebulization Active mg July 25, 2024 12:00am 24 hr buPROPion hydrochloride 150 mg extended release oral tablet (20 sources) Aminoketone Start: 07-25-2024 take 1 tablet by mouth once daily Bupropion Hcl 150 mg tablet extended release 24 hr Active 150 mg PO DAILY July 25, 2024 12:00am Start: 02-16-2017 End: 10-16-2022 take 1 tablet by mouth once daily buPROPion HCl ER (XL) 150 MG Oral Tablet Extended Release 24 Hour Take 1 tablet daily Quantity: 90 Refills: 3 Ordered: 17-Dec-2021 Rashad Agosto Christ LAU Start : 16-Feb-2017 Active calcium carbonate 1250 mg chewable tablet (20 sources) Start: 07-25-2024 Calcium Carbon ate 500 mg calcium (1,250 mg) tablet,chewable Active PO July 25, 2024 12:00am Start: 10-27-2022 Calcium Carbon ate 1250 (500 Ca) MG Oral Tablet Chewable Quantity: 0 Refills: 0 Ordered: 27-Oct-2022 DO Start : 27-Oct-2022 Active calcium carbonat e (Os-Ramiro) 1250 (500 Ca) MG tablet Take by mouth daily. 0 Active Oscal 500/200 D- 3 TABS Quantity: 0 Refills: 0 Ordered: 01-Mar-2013 DO Active CALCIUM CARBONATE-VITAMIN D3 ORAL (5 sources) CALCIUM CARBONATE-VITAMIN D3 ORAL Take by mouth. 0 Active cetirizine hydrochloride 5 mg oral tablet (20 sources) Histamine-1 Receptor Antagonist Start: 025 take 1 tablet by mouth once daily Cetirizine 5 mg tablet Active 5 mg PO DAILY July 25, 2024 12:00am Start: 10-11-2022 End: 10-16-2022 take 10 mg by mouth once daily 10 mg, Oral, Daily, [facility] dose on 10/11/22 at 0915 cetirizine HCl ( ZYRTEC ORAL) Take by mouth. 0 Active Zyrtec TABS Tino tity: 0 Refills: 0 Ordered: 08-Mar-2021 DO Active clopidogrel 75 mg oral tablet (20 sources) [id number] Platelet Inhibitor Start: 07-25-2024 take 1 tablet by mouth once daily Clopidogrel 75 mg tablet Active 75 mg PO DAILY July 25, 2024 12:00am Start: 09-01-2012 End: 10-16-2022 take 1 tablet by mouth once Clopidogrel Bisulfate 75 MG Oral Tablet TAKE 1 TABLET BY MOUTH EVERY [id number] Quantity: 90 Refills: 3 Ordered: 27-Aug-2022 Apple Zayas Start : 01-Sep-2012 Active Start: 09-01-2012 take 1 tablet by dunia th three times weekly, then take 1 tablet by mouth once clopidogrel (Plavix) 75 mg tablet Take 1 tablet (75 mg) by mouth 3 times a week. TAKE 1 TABLET BY MOUTH EVERY [id number] 0 09/01/2012 Active Start: 09-01-2012 take 1 tablet by dunia th every other day Clopidogrel Bisulfate 75 MG Oral Tablet TAKE 1 TABLET BY MOUTH EVERY OTHER DAY Quantity: 90 Refills: 3 Ordered: 08-Mar-2021 Apple Zayas Start : 01-Sep-2012 Active dicyclomine hydrochloride 10 mg oral capsule (20 sources) Anticholinergic Start: 07-25-2024 take 1 capsule by mouth three times daily Dicyclomine 10 mg capsule Active 10 mg PO THREE TIMES A DAY July 25, 2024 12:00am Start: 07-30-2020 End: 10-16-2022 dicyclomine (Bentyl) capsule 10 mg Start: 11-14-2019 take 1 capsule by mo [facility] every eight hours Dicyclomine HCl - 10 MG Oral Capsule TAKE 1 CAPSULE Every 8 hours PRN diarrhea, stomach cramps Quantity: 90 Refills: 3 Christ Gardiner DO Start : 14-Nov-2019 Active take 1 capsule by mo uth four times daily Dicyclomine HCl - 10 MG Oral Capsule TAKE 1 CAPSULE 4 TIMES DAILY Quantity: 90 Refills: 3 Ordered: 18-Oct-2021 Christ Gardiner DO Active docusate sodium 50 mg / sennosides, assisted 8.6 mg oral tablet (4 sources) Start: 07-25-2024 Sennosides-Doc usate Sodium (Senexon-S) 8.6-50 mg tablet Active 1 {tbl} PO DAILY July 25, 2024 12:00am Start: 10-27-2022 Senna S 8.6-50 MG Oral Tablet Quantity: 0 Refills: 0 Ordered: 27-Oct-2022 DO Start : 27-Oct-2022 Active Start: 10-11-2022 End: 10-14-2022 senna-docusate sodium (Senok ot-S) 8.6-50 MG tablet 2 tablet doxazosin 2 mg oral tablet (20 sources) alpha-Adrenergic Simon Start: 07-25-2024 take 1 tablet by mouth once daily Doxazosin 2 mg tablet Active 2 mg PO DAILY July 25, 2024 12:00am Start: 10-11-2022 End: 10-16-2022 take 2 mg by mouth once daily 2 mg, Oral, Nightly, Fir [facility] dose on 10/11/22 at 2100 Start: 09-18-2022 take 2 tablets by mo uth once daily doxazosin (Cardura) 1 mg tablet Indications: Benign essential hypertension Take 2 tablets (2 mg) by mouth once daily. 180 tablet 0 09/18/2022 Active Start: 05-30-2022 take 2 tablets by mo uth once daily doxazosin (Cardura) 1 mg tablet Indications: Benign essential hypertension Take 2 tablets (2 mg) by mouth once daily. 60 tablet 0 05/30/2022 Active Start: 03-08-2021 End: 05-30-2022 take 1 tablet by mouth once daily Doxazosin Mesylate 1 MG Oral Tablet TAKE 1 TABLET BY MOUTH DAILY Quantity: 90 Refills: 3 Ordered: 25-Feb-2022 Apple Zayas Start : 08-Mar-2021 Active take 1 tablet by dunia th once daily doxazosin (Cardura) 2 MG tablet Take 2 mg by mouth Nightly. 0 Active furosemide 20 mg oral tablet (20 sources) Loop Diuretic Start: 07-25-2024 take 1 tablet by mouth once daily Furosemide 20 mg tablet Active 20 mg PO DAILY July 25, 2024 12:00am Start: 01-12-2017 take 1 tablet by dunia th once daily Furosemide 20 MG Oral Tablet Take 1 tablet daily Quantity: 90 Refills: 3 Ordered: 28-Aug-2022 Apple Zayas Start : 12-Jan-2017 Active Start: 01-12-2017 take 2 tablets by mo uth once daily, then take 1 tablet by mouth once daily Furosemide 20 MG Oral Tablet Take 1 tablet daily Quantity: 30 Refills: 2 Ordered: 21-May-2021 Christ Gardiner DO Start : 12-Jan-2017 Active (take 2 potassium on days you are taking full strength 20 mg furosemide, take 1 on 10 mg days) Start: 01-12-2017 take 2 tablets by mo uth every other day, then take 1 tablet by mouth once daily Furosemide 20 MG Oral Tablet 1/2 tab every other day, full tablet on opposite days Quantity: 135 Refills: 0 Ordered: 25-Dec-2020 Christ Gardiner DO Start : 12-Jan-2017 Active (take 2 potassium on days you are taking full strength 20 mg furosemide, take 1 on 10 mg days) Start: 01-12-2017 take 0.5 tablet by m outh once daily Furosemide 20 MG Oral Tablet 1/2 tab daily Quantity: 45 Refills: 0 Ordered: 29-Oct-2020 Christ Gardiner DO Start : 12-Jan-2017 Active gabapentin 100 mg oral capsule (20 sources) Anti-epileptic Agent Start: 07-25-2024 Gabapenti n 100 mg capsule Active PO July 25, 2024 12:00am Start: 10-11-2022 End: 10-16-2022 take 600 mg by mouth twice daily 600 mg, Oral, 2 times daily, First dose on 10/11/22 at 0915 Start: 05-22-2022 take 2 capsules by m outh in the morning, then take 2 capsules by mouth at bedtime, then take 1-2 capsules by mouth in the morning, then take 2 capsules by mouth once daily in the evening gabapentin (Neurontin) 300 mg capsule Indications: Other polyneuropathy Take 2 capsules (600 mg) by mouth in the morning and 2 capsules (600 mg) before bedtime. TAKE 1-2 tabs in am and 2 in pm DAILY. 360 capsule 1 05/22/2022 Active Start: 09-29-2017 take 1-2 tablets by mouth in the morning, then take 2 tablets by mouth once daily in the evening Gabapentin 300 MG Oral Capsule TAKE 1-2 tabs in am and 2 in pm DAILY Quantity: 360 Refills: 1 Ordered: 18-Oct-2021 Christ Gardiner DO Start : 29-Sep-2017 Active Start: 09-29-2017 Gabapentin 300 MG Oral Capsule TAKE 2 CAPSULES IN THE MORNING, TAKE 1 CAPSULE in the afternoon, and TAKE 1 CAPSULE IN THE EVENING Quantity: 360 Refills: 0 Christ Gardiner DO Start : 29-Sep-2017 Active 24 hr isosorbide mononitrate 30 mg extended release oral tablet (20 sources) Nitrate Vasodilator Start: 07-25-2024 take 1 tablet by mouth once daily, then take 1 tablet by mouth every twenty-four hours Isosorbide Mononitrate 30 mg tablet extended release 24 hr Active 30 mg PO DAILY July 25, 2024 12:00am Start: 09-01-2012 End: 10-16-2022 take 1 tablet by mouth once daily 60 mg, Oral, Daily, First dose on 10/11/22 at 0915 Do not chew or crush ER tablets; may be divided in half. Due to insoluble matrix embedding, ER tablets that are scored may be split. Start: 09-01-2012 take 1 tablet by dunia th once daily Isosorbide Mononitrate ER 30 MG Oral Tablet Extended Release 24 Hour Take 1 tablet by mouth daily Quantity: 90 Refills: 3 Ordered: 27-Oct-2022 Apple Zayas Start : 01-Sep-2012 Active metoprolol tartrate 25 mg oral tablet (20 sources) beta-Adrenergic Simon Start: 07-25-2024 take 1 tablet by mouth twice daily Metoprolol Tartrate 25 mg tablet Active 25 mg PO TWICE A DAY July 25, 2024 12:00am Start: 09-06-2013 take 1 tablet by dunia th once daily Metoprolol Tartrate 50 MG Oral Tablet TAKE 1 TABLET EVERY 12 HOURS DAILY. Quantity: 180 Refills: 3 Ordered: 11-Sep-2022 Apple Zayas Start : 06-Sep-2013 Active Start: 09-06-2013 End: 10-16-2022 take 50 mg by mouth twice daily 50 mg, Oral, 2 times d aily, First dose on 10/11/22 at 0915 Start: 09-06-2013 take 0.5 tablet by m outh twice daily Metoprolol Tartrate 50 MG Oral Tablet TAKE 0.5 TABLET Twice daily Quantity: 30 Refills: 3 Ordered: 29-Oct-2020 Christ Gardiner DO Start : 06-Sep-2013 Active Start: 09-06-2013 take 1 tablet by dunia th every twelve hours Metoprolol Tartrate 50 MG Oral Tablet TAKE 1 TABLET BY MOUTH EVERY 12 HOURS Quantity: 180 Refills: 3 Ordered: 29-Feb-2020 Christ Gardiner DO Start : 06-Sep-2013 Active mirtazapine 30 mg oral tablet (20 sources) Start: 07-25-2024 take 1 tablet by mouth at bedtime Mirtazapine 30 mg tablet Active 30 mg PO AT BEDTIME July 25, 2024 12:00am Start: 10-11-2022 End: 10-16-2022 take 30 mg by mouth once daily 30 mg, Oral, Nightly, F irst dose on 10/11/22 at 2100 Start: 11-22-2020 take 1 tablet by dunia th at bedtime Mirtazapine 30 MG Oral Tablet TAKE 1 TABLET AT BEDTIME. Quantity: 90 Refills: 1 Ordered: 18-Oct-2021 Christ Gardiner DO Start : 22-Nov-2020 Active changed from 15 mg to 30 mg on 10-16 Start: 11-22-2020 take 1 tablet by dunia th at bedtime Mirtazapine 15 MG Oral Tablet take 1 tablet by mouth at bedtime Quantity: 90 Refills: 3 Ordered: 17-Jan-2021 Christ Gardiner DO Start : 22-Nov-2020 Active if no side effects but ineffective for insomnia, please increase to 2 tabs at night Start: 11-22-2020 take 1 tablet by dunia th at bedtime Mirtazapine 7.5 MG Oral Tablet TAKE 1 TABLET AT BEDTIME. Quantity: 30 Refills: 6 Ordered: 22-Nov-2020 Christ Gardiner DO Start : 22-Nov-2020 Active if no side effects but ineffective for insomnia, please increase to 2 tabs at night montelukast 10 mg oral tablet (20 sources) Leukotriene Receptor Antagonist Start: 07-25-2024 take 1 tablet by mouth once daily Montelukast 10 mg tablet Active 10 mg PO DAILY July 25, 2024 12:00am Start: 05-26-2018 End: 10-16-2022 take 1 tablet by mouth at bedtime as needed Montelukast Sodium 10 MG Oral Tablet TAKE 1 TABLET AT BEDTIME PRN Quantity: 90 Refills: 1 Ordered: 19-Feb-2022 Christ Gardiner DO Start : 26-May-2018 Active multivitamin (Theragran) tablet (1 source) take 1 tablet by mouth once daily multivitamin (Theragran) tablet Take 1 tablet by mouth daily. 0 Active multivitamin tablet (5 sources) multivitamin tab let Take by mouth. 0 Active Multivitamin With Folic Acid (Daily-Carmelo (With Folic Acid)) 400 mcg tablet (1 source) Start: 5 Multivitamin With Folic Acid (Daily-Carmelo (With Folic Acid)) 400 mcg tablet Active 1 {tbl} PO DAILY July 25, 2024 12:00am pantoprazole 40 mg delayed release oral tablet (20 sources) Proton Pump Inhibitor Start: 5 take 1 tablet by mouth once daily Pantoprazole 40 mg tablet,delayed release (DR/EC) Active 40 mg PO DAILY July 25, 2024 12:00am take 1 tablet by mouth twice artur ly Pantoprazole Sodium 40 MG Oral Tablet Delayed Release Take 1 tablet twice daily Quantity: 180 Refills: 3 Ordered: 11-Mar-2022 Christ Gardiner DO Active take 1 tablet by dunia th once daily before breakfast pantoprazole (ProtoNix) 40 MG EC tablet Take 40 mg by mouth every morning (before breakfast). Do not crush, chew, or split. 0 Active microencapsulated potassium chloride 20 meq extended release oral tablet (20 sources) Start: 07-25-2024 take 1 tablet by mouth once daily Potassium Chloride 20 mEq tablet,ER particles/crystals Active 20 meq PO DAILY July 25, 2024 12:00am Start: 10-11-2022 End: 10-16-2022 20 mEq, Oral, Daily, First d ose on 10/11/22 at 0915 Best given with food and plenty of water to minimize gastric irritation. Do not crush or chew. Start: 10-07-2017 take 2 capsules by m outh once daily Potassium Chloride ER 10 MEQ Oral Capsule Extended Release TAKE 2 CAPSULES BY MOUTH DAILY Quantity: 180 Refills: 1 Ordered: 11-Sep-2022 Apple Zayas Start : 07-Oct-2017 Active Start: 10-07-2017 take 1 capsule by mo uth once daily Potassium Chloride ER 10 MEQ Oral Capsule Extended Release TAKE 1 CAPSULE BY MOUTH ON THE DAYS YOU TAKE 10 MG LASIX, TAKE 2 CAP DAILY ON THE DAYS YOU TAKE 20 MG LASIX (EVERY OTHER DAY 10 ONE DAY 20 THE NEXT) Quantity: 135 Refills: 1 Ordered: 14-Aug-2021 Apple Zayas Start : 07-Oct-2017 Active tiZANidine 2 mg oral tablet (20 sources) Central alpha-2 Adrenergic Agonist Start: 05-22-2021 take 1 tablet by mouth every twelve hours as needed for muscle spasms tiZANidine (Zanaflex) 2 mg tablet Indications: Dorsalgia, unspecified TAKE 1 TABLET BY MOUTH EVERY 12 HOURS NEEDED FOR MUSCLE SPASMS 180 tablet 1 08/18/2022 Active End: 10-16-2022 take 2 tablets by mouth every six hours as needed tiZANidine (Zanaflex) 2 MG tablet Take 4 mg by mouth every 6 hours as needed for muscle spasms. 0 10/16/2022 Discontinued (Stop taking at discharge) take 1 tablet by dunia th every twelve hours tiZANidine HCl - 2 MG Oral Tablet TAKE 1 TABLET Every twelve hours PRN back spasm Quantity: 180 Refills: 0 Ordered: 20-Feb-2021 Shira Negron DO Active Completed/Discontinued Medications Medication Drug Class(es) Dates Sig (Normalized) Sig (Original) alendronic acid 70 mg oral tablet (20 sources) Bisphosphonate Start: 09-10-2020 take 1 tablet by mouth every week at breakfast Alendronate Sodium 70 MG Oral Tablet TAKE 1 TABLET WEEKLY, 30-60 MINUTES PRIOR TO BREAKFAST ON AN EMPTY STOMACH. DO NOT LIE DOWN AFTER TAKING MEDICATION. Quantity: 12 Refills: 3 Ordered: 10-Sep-2020 Christ Gardiner DO Start : 10-Sep-2020 Active Start: 05-09-2013 take 1 tablet by dunia th every week Alendronate Sodium 70 MG Oral Tablet TAKE 1 TABLET BY MOUTH ONCE A WEEK Quantity: 12 Refills: 1 Christ Gardiner DO Start : 09-May-2013 Active bisacodyl 10 mg rectal suppository (4 sources) Stimulant Laxative Start: 10-27-2022 Bisacodyl 1 0 MG Rectal Suppository Quantity: 0 Refills: 0 Ordered: 27-Oct-2022 DO Start : 27-Oct-2022 Active Start: 10-11-2022 End: 10-12-2022 bisacodyl (Dulcolax) supposi tory 10 mg Oscal 500/200 D-3 TABS (20 sources) Vitamin D Oscal 500/200 D- 3 TABS Refills: 0 Active Oscal 500/200 D- 3 TABS Refills: 0 DO Active Centrum Silver TABS (20 sources) Centrum Silver T ABS Refills: 0 Active Centrum Silver T ABS Refills: 0 DO Active Docusate (20 sources) take 1 capsule by mo [facility] at bedtime docusate sodium (COLACE ORAL) Take 1 capsule by mouth if needed in the morning and at bedtime. 0 Active Colace CAPS TAKE 1 CAPSULE TWICE DAILY NEEDED. Quantity: 0 Refills: 0 Ordered: 20-Apr-2019 DO Active Colace CAPS TAKE 1 CAPSULE TWICE DAILY NEEDED. Refills: 0 DO Active Colace CAPS TAKE 1 CAPSULE TWICE DAILY NEEDED. Refills: 0 Active Colace CAPS Refi lls: 0 Active Colace CAPS Refi lls: 0 DO Active 0.4 ml enoxaparin sodium 100 mg/ml prefilled syringe (1 source) Low Molecular Weight Heparin Start: 10-11-2022 End: 10-16-2022 inject 40 mg by subcutaneous injection every twenty-four hours 40 mg, SubCUTAneous, Every 24 hours scheduled (Daily), First dose on 10/11/22 at 0900 Indication of Use: Prophylaxis-DVT/PE Indications: Prophylaxis of Venous Thromboembolism famotidine 20 mg oral tablet (20 sources) Histamine-2 Receptor Antagonist Start: 03-15-2018 take 1 tablet by mouth twice daily Famotidine 20 MG Oral Tablet TAKE 1 TABLET BY MOUTH TWICE DAILY Quantity: 180 Refills: 0 Christ Gardiner DO Start : 15-Mar-2018 Active ferrous sulfate 325 mg oral tablet (20 sources) Start: 05-30-2016 End: 10-07-2022 take 1 tablet by mouth once daily Ferrous Sulfate 325 (65 Fe) MG Oral Tablet Take 1 tablet once daily Refills: 0 DO Start : 30-May-2016 Active Start: 05-30-2016 take 1 tablet by dunia three times daily at mealtime Ferrous Sulfate 325 (65 Fe) MG Oral Tablet TAKE 1 TABLET 3 TIMES DAILY WITH FOOD. Refills: 0 Start : 30-May-2016 Active Fiber Select Gummies Oral Tablet Chewable (2 sources) Start: 10-27-2022 Fiber Select G ummies Oral Tablet Chewable Quantity: 0 Refills: 0 Ordered: 27-Oct-2022 DO Start : 27-Oct-2022 Active fluticasone propionate 0.05 mg/actuat metered dose nasal spray (20 sources) Corticosteroid Start: 12-17-2010 End: 10-27-2022 Fluticasone Propionate 50 MCG/ACT Nasal Suspension USE DIRECTED. Quantity: 1 Refills: 3 Ordered: 20-Nov-2017 Christ Gardiner DO Start : 17-Dec-2010 End : 27-Oct-2022 Complete Start: 12-17-2010 fluticasone (F lonase) 50 mcg/actuation nasal spray Administer into affected nostril(s). 0 12/17/2010 Active Start: 12-17-2010 Fluticasone Pr opionate 50 MCG/ACT Nasal Suspension USE DIRECTED. Quantity: 1 Refills: 3 Christ Gardiner DO Start : 17-Dec-2010 Active 15.8 ML Bottle 1 ml HYDROmorphone hydrochloride 1 mg/ml cartridge (1 source) Opioid Agonist Start: 10-11-2022 End: 10-16-2022 HYDROmorphone (Dilaudid) injection 0.5 mg 12 hr hyoscyamine sulfate 0.375 mg extended release oral tablet (3 sources) Start: 03-12-2020 take 1 tablet by mouth every twelve hours as needed Hyoscyamine Sulfate ER 0.375 MG Oral Tablet Extended Release 12 Hour TAKE 1 TABLET EVERY 12 HOURS NEEDED. Quantity: 180 Refills: 1 Christ Gardiner DO Start : 12-Mar-2020 Active iopamidol (Isovue-370) 76 % injection 75 mL (1 source) Start: 10-10-2022 End: 10-10-2022 iopamidol (Isovue-370) 76 % injection 75 mL levoFLOXacin 500 mg oral tablet (6 sources) Quinolone Antimicrobial Start: 09-11-2022 take 1 tablet by mouth once daily, then take 1 tablet by mouth once daily levoFLOXacin 500 MG Oral Tablet Take one tab the day before your procedure and one tab the day of your procedure Quantity: 2 Refills: 0 Ordered: 11-Sep-2022 Apple Zayas Start : 11-Sep-2022 Active Start: 06-01-2022 End: 06-17-2022 levoFLOXacin (Levaquin) 500 mg tablet Indications: Hypoxia , Pneumonia of right lower lobe due to infectious organism , Pneumonia of right lung due to infectious organism, unspecified part of lung Take 1 tablet (500 mg) by mouth once daily for 7 days. May stop after 5 d abx if symptoms resolved 7 tablet 0 06/10/2022 06/17/2022 Active lidocaine 40 mg/ml topical cream (20 sources) Antiarrhythmic, Amide Local Anesthetic Start: 11-30-2017 Lidocaine 4 % External Cream USE TOPICALLY DIRECTED. Quantity: 1 Refills: 11 Ordered: 30-Nov-2017 Christ Gardiner DO Start : 30-Nov-2017 Active Start: 11-30-2017 Lidocaine 4 % External Cream USE TOPICALLY DIRECTED. Quantity: 1 Refills: 11 Rashad Alicianell Christ LAU Start : 30-Nov-2017 Active 30 GM Tube Start: 10-05-2017 Lidocaine 5 % External Patch APPLY 1 PATCH TO THE AFFECTED AREA AND LEAVE IN PLACE FOR 12 HOURS, THEN REMOVE AND LEAVE OFF FOR 12 HOURS. Quantity: 30 Refills: 11 Ordered: 20-Nov-2017 Rasahd Alicianell Christ LAU Start : 05-Oct-2017 Active lisinopril 10 mg oral tablet (20 sources) Angiotensin Converting Enzyme Inhibitor Start: 09-01-2012 take 1 tablet by mouth once daily Lisinopril 10 MG Oral Tablet TAKE 1 TABLET BY MOUTH EVERY DAY Quantity: 90 Refills: 1 Rashad Alicianell Christ LAU Start : 01-Sep-2012 Active magnesium hydroxide 80 mg/ml oral suspension (2 sources) Start: 10-27-2022 Milk of Magnesia 400 MG/5ML Oral Suspension Quantity: 0 Refills: 0 Ordered: 27-Oct-2022 DO Start : 27-Oct-2022 Active meropenem (1 source) Penem Antibacterial Start: 10-10-2022 End: 10-10-2022 take 2000 mg intravenously every eight hours meropenem (Merrem) IVPB 2000 mg in 100 mL NS (compounded premix) meropenem (Merrem) 1,000 mg in sodium chloride 0.9 % 100 mL IVPB (1 source) Start: 10-10-2022 End: 10-14-2022 take 1000 mg intravenously every eight hours meropenem (Merrem) 1,000 mg in sodium chloride 0.9 % 100 mL IVPB 1 ml morphine sulfate 4 mg/ml cartridge (3 sources) Opioid Agonist Start: 10-10-2022 End: 10-11-2022 take 2 mg intravenously every four hours as needed for pain 2 mg, IntraVENous, Every 4 hours PRN, severe pain (7-10), Starting on 9/1/23 at 2105 If oral and IV narcotics ordered, use oral first and only use IV if oral is ineffective or cannot take oral. &n bsp;Do Not give oral and IV within 1 hour of each other unless specifically ordered. Start: 10-10-2022 End: 10-10-2022 morphine injection 4 mg Multiple Vitamins Oral Tablet (3 sources) Multiple Vitamin s Oral Tablet Refills: 0 DO Active Multiple Vitamins Oral Tablet (20 sources) Multiple Vitamin s Oral Tablet Quantity: 0 Refills: 0 Ordered: 12-Mar-2020 DO Active nitroglycerin 0.4 mg sublingual tablet (20 sources) Nitrate Vasodilator Start: 12-01-19 End: 05-31-19 23 Nitroglycerin 0.4 MG Sublingual Tablet Sublingual DISSOLVE 1TAB IN MOUTH AT 1ST OF ATTACK MAY REPEAT EVERY 5MIN UNTIL RELIEF AFTER 3TABS CALL MED HELP Quantity: 1 Refills: 3 Ordered: 29-Feb-2020 Christ Gardiner DO Start : 30-Nov-2018 Active omeprazole 20 mg delayed release oral capsule (20 sources) Proton Pump Inhibitor Start: 10-23-19 18 take 1 capsule by mouth twice daily Omeprazole 20 MG Oral Capsule Delayed Release TAKE 1 CAPSULE TWICE DAILY. Quantity: 180 Refills: 1 Ordered: 22-May-2020 Christ Gardiner DO Start : 22-Oct-2017 Active Start: 10-22-2017 take 1 capsule by [facility] once daily Omeprazole 20 MG Oral Capsule Delayed Release TAKE 1 CAPSULE BY MOUTH DAILY Quantity: 90 Refills: 0 Christ Gardiner DO Start : 22-Oct-2017 Active 2 ml ondansetron 2 mg/ml injection (1 source) Serotonin-3 Receptor Antagonist Start: 10-10-2022 End: 10-10-2022 ondansetron (Zofran) injection 4 mg ondansetron ODT (Zofran-ODT) disintegrating tablet 4 mg (1 source) Start: 10-10-2022 End: 10-16-2022 take 1 tablet by mouth every eight hours as needed for nausea and vomiting ondansetron ODT (Zofran-ODT) disintegrating tablet 4 mg oxybutynin chloride 5 mg oral tablet (17 sources) Cholinergic Muscarinic Antagonist Start: 01-12-2017 take 1 tablet by mouth three times daily Oxybutynin Chloride 5 MG Oral Tablet TAKE 1 TABLET BY MOUTH THREE TIMES DAILY Quantity: 270 Refills: 1 Christ Gardiner DO Start : 12-Jan-2017 Active polyethylene glycol 3350 13329 mg powder for oral solution (4 sources) Osmotic Laxative Start: 10-12-2022 End: 11-15-2022 Polyethylene Glycol 3350 Powder Quantity: 0 Refills: 0 Ordered: 27-Oct-2022 DO Start : 27-Oct-2022 Active polyethylene glycol 400 4 mg/ml / propylene glycol 3 mg/ml ophthalmic solution (2 sources) Start: 10-27-2022 Systane 0.4-0.3 % Ophthalmic Solution Quantity: 0 Refills: 0 Ordered: 27-Oct-2022 DO Start : 27-Oct-2022 Active Polyethylene Glycols (1 source) Start: 10-27-2022 Polyethylene Glycol 3350 Powder Quantity: 0 Refills: 0 Ordered: 27-Oct-2022 DO Start : 27-Oct-2022 Active simethicone 80 mg chewable tablet (4 sources) Start: 10-27-2022 Simethicone 80 MG Oral Tablet Chewable Quantity: 0 Refills: 0 Ordered: 27-Oct-2022 DO Start : 27-Oct-2022 Active Start: 10-14-2022 End: 10-26-2022 take 1 tablet by mouth every four hours as needed simethicone (Mylicon) 80 MG chewable tablet Chew 1 tablet (80 mg) every 4 hours as needed for flatulence for up to 10 days. 30 tablet 0 10/16/2022 10/26/2022 Active 1000 ml sodium chloride 9 mg/ml injection (2 sources) Start: 10-10-2022 End: 10-13-2022 take 100 mL intravenously every hour 100 mL/hr, IntraVENous, Continuous, Starting on Thu10/10/22 at 2115 Start: 10-10-2022 End: 10-10-2022 sodium chloride 0.9 % bolus 1,000 mL sodium phosphate, dibasic 35.5 mg/ml / sodium phosphate, monobasic 96.4 mg/ml enema (2 sources) Start: 10-27-2022 Enema Rectal Enema Quantity: 0 Refills: 0 Ordered: 27-Oct-2022 DO Start : 27-Oct-2022 Active sulfamethoxazole 400 mg / trimethoprim 80 mg oral tablet (6 sources) Dihydrofolate Reductase Inhibitor Antibacterial, Sulfonamide Antimicrobial Start: 12-10-2018 take 1 tablet by mouth twice daily Sulfamethoxazole -Trimethoprim 400-80 MG Oral Tablet TAKE 1 TABLET TWICE DAILY. Quantity: 14 Refills: 0 Christ Gardiner DO Start : 10-Dec-2018 Active therapeutic multivitamin-minerals (Theragran-M) tablet (1 source) Start: 10-11-2022 End: 10-16-2022 take 1 tablet by mouth once daily 1 tablet, Oral, Daily, First dose on 10/11/22 at 0915 vancomycin (Vancocin) 1,000 mg in sodium chloride 0.9 % 250 mL IVPB (2 sources) Start: 10-11-2022 End: 10-12-2022 vancomycin (Vancocin) 1,000 mg in sodium chloride 0.9 % 250 mL IVPB Start: 10-10-2022 End: 10-10-2022 vancomycin (Vancocin) 1,000 mg in sodium chloride 0.9 % 250 mL IVPB Problems Active Problems Problem Classification Problem Date Documented Da te Episodic/Chronic Abdominal hernia (20 sources) Hiatal hernia; Translations: [Diaphragmatic hernia without mention of obstruction or gangrene] Onset: 1 03-02-2022 Episodic Abdominal pain (20 sources) Periumbilical pain; Translations: [Left lower quadrant pain] Onset: 8 Resolved: 3 06-10-2022 Episodic Acute myocardial infarction (20 sources) Subendocardial infarction, initial episode of care; Translations: [Acute Non-Q-wave Myocardial Infarction - Initial Care ([place])] Chronic Comment on above: Added by Problem Lis t Migration; 2012-08-06; Allergic reactions (7 sources) Allergy status to other drugs, medicaments and biological substances status; Translations: [Allergy status to analgesic agent status] Onset: 8 10-07-2022 Episodic Anxiety disorders (20 sources) Anxiety disorder, unspecified; Translations: [Anxiety] Onset: 8 Chronic Chronic kidney disease (20 sources) Chronic kidney disease stage 3; Translations: [Chronic kidney disease stage 4] Onset: 3 03-02-2022 Chronic Chronic kidney disease (2 sources) Chronic kidney disease; Translations: [Chronic kidney disease, stage 3a (CMS/HCC)] Onset: 3 Complications of surgical procedures or medical care (20 sources) Iatrogenic pneumothorax; Translations: [Mechanical complication of gastrostomy] Episodic Comment on above: Added by Problem Clarice young Migration; 2012-08-06; Conduction disorders (1 source) Unspecified right bundle-branch block; Translations: [Unspecified right bundle-branch block] Onset: 8 Chronic Congestive heart failure; nonhypertensive (20 sources) Heart failure, unspecified; Translations: [Chronic diastolic (congestive) heart failure] Onset: 8 Resolved: 3 05-30-2022 Chronic Congestive heart failure; nonhypertensive (1 source) Congestive heart failure; nonhypertensive Onset: 8 Coronary atherosclerosis and other heart disease (20 sources) Atherosclerotic heart disease of [place] coronary artery without angina pectoris; 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] Onset: 8 05-30-2022 Chronic Comment on above: Added by Problem Clarice young Migration; 2012-10-05; Coronary atherosclerosis and other heart disease (2 sources) Coronary atherosclerosis and other heart disease Onset: 8 Deficiency and other anemia (20 sources) Anemia of chronic disease; Translations: [Anemia of other chronic disease] Onset: 3 05-30-2022 Chronic Deficiency and other anemia (1 source) Anemia in other chronic diseases classified elsewhere; Translations: [Anemia in other chronic diseases classified elsewhere] Onset: 3 Chronic Deficiency and other anemia (20 sources) Anemia; Translations: [Anemia, unspecified] Onset: 3 03-02-2022 Episodic Delirium, dementia, and amnestic and other cognitive disorders (20 sources) Age-related cognitive decline; Translations: [Unspecified persistent mental disorders due to conditions classified elsewhere] Onset: 3 03-02-2022 Chronic Diseases of white blood cells (1 source) Elevated white blood cell count, unspecified; Translations: [Elevated white blood cell count, unspecified] Onset: 8 Chronic Disorders of lipid metabolism (20 sources) Hypercholesterolemia; 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] Onset: 3 03-02-2022 Chronic Disorders of teeth and jaw (20 sources) Dental caries; Translations: [Dental caries, unspecified] Episodic Diverticulosis and diverticulitis (1 source) Diverticulosis of intestine, part unspecified, without perforation or abscess without bleeding; Translations: [Dvrtclos of intest, part unsp, w/o perf or abscess w/o bleed] Onset: 8 Chronic E Codes: Fall (2 sources) Fall; Translations: [Unspecified fall, initial encounter] 07-25-2024 Episodic Esophageal disorders (20 sources) Gastroesophageal reflux disease; Translations: [Esophageal reflux] Onset: 3 03-02-2022 Chronic Esophageal disorders (2 sources) Esophageal disorders Onset: 8 Essential hypertension (20 sources) Essential (primary) hypertension; Translations: [Hypertensive disorder] Onset: 8 05-30-2022 Chronic Essential hypertension (1 source) Essential hypertension Onset: 8 External cause codes: Fall (1 source) Unspecified fall, initial encounter; Translations: [Unspecified fall, initial encounter] Onset: 8 Fluid and electrolyte disorders (20 sources) Hypokalemia; Translations: [Hyperkalemia] Onset: 8 Episodic Fracture of neck of femur (hip) (2 sources) Closed intertrochanteric fracture; Translations: [Displaced intertrochanteric fracture of right femur, initial encounter for closed fracture] 07-25-2024 Episodic Genitourinary symptoms and ill-defined conditions (20 sources) Urgent desire to urinate; Translations: [Increased frequency of urination] Episodic Gout and other crystal arthropathies (1 source) Gout; Translations: [Gout, unspecified] Onset: 1 11-21-2021 Chronic Heart valve disorders (20 sources) Nonrheumatic mitral (valve) insufficiency; Translations: [Aortic valve stenosis] Onset: 8 04-15-2022 Chronic Hemorrhoids (20 sources) Internal hemorrhoids; Translations: [Internal hemorrhoids without mention of complication] Episodic Comment on above: Added by Problem Clarice t Migration; 2012-08-06; Hypertension with complications and secondary hypertension (1 source) Hypertensive heart disease with heart failure; Translations: [Hypertensive heart disease with heart failure] Onset: 8 Chronic Immunizations and screening for infectious disease (20 sources) Vaccination needed; Translations: [Need for prophylactic vaccination and inoculation against unspecified single disease] Episodic Intestinal infection (3 sources) Enterocolitis due to Clostridium difficile, not specified as recurrent; Translations: [Enterocolitis d/t Clostridium difficile, not spcf as recur] Onset: 8 Late effects of cerebrovascular disease (20 sources) Late effects of cerebrovascular disease; 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 Malaise and fatigue (20 sources) Asthenia; Translations: [Other malaise and fatigue] Episodic Mood disorders (20 sources) Depressive disorder; Translations: [Major depressive affective disorder, single episode, severe, 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] Chronic Comment on above: Added by Hallie Hendricks; 2012-08-06; Mood disorders (2 sources) Major depressive disorder, single episode, unspecified; Translations: [Mood disorders] Onset: 8 Noninfectious gastroenteritis (20 sources) Colitis; Translations: [Other and unspecified noninfectious gastroenteritis and colitis] Onset: 1 03-02-2022 Episodic Nonspecific chest pain (20 sources) Chest pain; Translations: [Chest pain] Episodic Nutritional deficiencies (20 sources) Unspecified protein-calorie malnutrition; Translations: [Unspecified severe protein-calorie malnutrition] Onset: 8 Chronic Comment on above: Added by Hallie Hendricks; 2012-08-06; Occlusion or stenosis of precerebral arteries (20 sources) Bilateral stenosis of carotid arteries; Translations: [Occlusion and stenosis of carotid artery without mention of cerebral infarction] Onset: 3 04-15-2022 Chronic Osteoporosis (20 sources) Osteoporosis; Translations: [Osteoporosis, unspecified] Onset: 3 05-30-2022 Chronic Other aftercare (20 sources) Patient encounter status; Translations: [Long-term (current) use of other medications] Episodic Other aftercare (3 sources) Post-discharge follow-up; Translations: [Other follow-up examination] Episodic Other and ill-defined cerebrovascular disease (20 sources) Cerebral ischemia; 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 Comment on above: Added by Hallie Hendricks; 2012-08-06; Other and ill-defined cerebrovascular disease (20 sources) Cerebral atherosclerosis; Translations: [Cerebral atherosclerosis] Onset: 3 03-02-2022 Chronic Other and ill-defined heart disease (20 sources) Left ventricular hypertrophy; Translations: [Cardiomegaly] Chronic Comment on above: Added by Problem Clarice Hendricks; 2012-10-05; Other circulatory disease (20 sources) H/O: heart disorder; Translations: [Personal history of other diseases of circulatory system] Episodic Comment on above: Added by Problem Clarice young Migration; 2012-10-05; Other circulatory disease (20 sources) Personal history of other diseases of circulatory system; Translations: [Acute Myocardial Infarction] Episodic Other circulatory disease (20 sources) H/O: angina pectoris; Translations: [Personal history of other diseases of circulatory system] Episodic Comment on above: Added by Problem Clarice Hendricks; 2012-10-05; Other circulatory disease (2 sources) Elevated blood pressure; Translations: [Elevated blood-pressure reading, without diagnosis of hypertension] 07-25-2024 Episodic Other connective tissue disease (20 sources) Spasm; Translations: [Spasm of muscle] Episodic Other connective tissue disease (20 sources) Personal history of arthritis; Translations: [Arthritis] Episodic Other connective tissue disease (20 sources) Triggering of digit; Translations: [Trigger finger (acquired)] Episodic Other connective tissue disease (6 sources) Foot pain; Translations: [Pain in limb] Episodic Other diseases of bladder and urethra (20 sources) Spasm of bladder; Translations: [History of Bladder spasm] Episodic Other ear and sense organ disorders (20 sources) Impacted cerumen; Translations: [Impacted cerumen] Episodic Other fractures (20 sources) Wedge compression fracture of unspecified thoracic vertebra, subsequent encounter for fracture with routine healing; Translations: [Compression fracture of thoracic spine] Episodic Other fractures (20 sources) Compression fracture of vertebral column; Translations: [Closed fracture of unspecified vertebral column without mention of spinal cord injury] Onset: 3 03-02-2022 Episodic Other gastrointestinal disorders (3 sources) Constipation, unspecified; Translations: [Constipation, unspecified] Onset: 8 Episodic Other gastrointestinal disorders (20 sources) History of gastrointestinal bleed; Translations: [Personal history of other diseases of digestive system] Episodic Other gastrointestinal disorders (20 sources) Occult blood in stools; Translations: [Fecal occult blood test positive] Episodic Other gastrointestinal disorders (20 sources) Diarrhea; Translations: [Diarrhea] Episodic Comment on above: Added by Hallie Hendricks; 2012-04-06; Moved to [facility] Jan 01 2013 4:07PM; Other gastrointestinal disorders (20 sources) Constipation; Translations: [Constipation, unspecified] 10-10-2022 Episodic Other gastrointestinal disorders (20 sources) History of gastroesophageal reflux disease; Translations: [Personal history of other diseases of digestive system] Episodic Other gastrointestinal disorders (20 sources) Disorder of abdomen; Translations: [Peritoneal adhesions (postoperative) (postinfection)] Episodic Other hematologic conditions (20 sources) H/O: blood disorder; Translations: [Personal history of diseases of blood and blood-forming organs] Episodic Comment on above: Added by Hallie Hendricks; 2012-08-06; Other hereditary and degenerative nervous system conditions (20 sources) Cerebral degeneration, unspecified; Translations: [Cerebral Degenerations And Movement Disorders] Chronic Comment on above: Added by Hallie Hendricks; 2012-08-06; Other lower respiratory disease (20 sources) Personal history of other diseases of the respiratory system; Translations: [History of pleural effusion] Episodic Comment on above: Added by Hallie Hendricks; 2012-08-06; Other lower respiratory disease (20 sources) H/O: respiratory disease; Translations: [Personal history of other diseases of respiratory system] Episodic Other nervous system disorders (2 sources) Encephalopathy, unspecified; Translations: [Encephalopathy, unspecified] Onset: 8 Chronic Other nervous system disorders (1 source) Polyneuropathy, unspecified; Translations: [Polyneuropathy, unspecified] Onset: 8 Chronic Other nervous system disorders (20 sources) Peripheral nerve disease ; Translations: [Unspecified hereditary and idiopathic peripheral neuropathy] Onset: 3 03-02-2022 Chronic Other nervous system disorders (20 sources) Spinal cord disease; Translations: [Unspecified disease of spinal cord] Chronic Other nutritional; endocrine; and metabolic disorders (1 source) Hypomagnesemia; Translations: [Hypomagnesemia] Onset: 8 Chronic Other nutritional; endocrine; and metabolic disorders (10 sources) Hypercalcemia; Translations: [Hypercalcemia] Chronic Other nutritional; endocrine; and metabolic disorders (20 sources) Body mass index less than 20; Translations: [Body mass index (BMI) 19.9 or less, adult] Episodic Other nutritional; endocrine; and metabolic disorders (20 sources) Underweight; Translations: [Underweight] Onset: 3 Resolved: 3 04-15-2022 Episodic Other screening for suspected conditions (not mental disorders or infectious disease) (20 sources) Abnormal results of kidney function studies; Translations: [Abnormal finding of blood chemistry, unspecified] Onset: 2 03-02-2022 Episodic Other skin disorders (20 sources) Eruption; Translations: [Rash] Episodic Other upper respiratory disease (20 sources) Allergic rhinitis; Translations: [Allergic rhinitis, cause unspecified] Onset: 3 03-02-2022 Chronic Other upper respiratory disease (2 sources) Allergic rhinitis, unspecified; Translations: [Allergic rhinitis, unspecified] Onset: 3 Chronic Peripheral and visceral atherosclerosis (20 sources) Atherosclerosis of [place] arteries of the extremities with intermittent claudication; Translations: [Unspecified vascular insufficiency of intestine] Onset: 1 03-02-2022 Chronic Comment on above: Added by Problem Clarice young Migration; 2012-08-06; Pneumonia (except that caused by tuberculosis or sexually transmitted disease) (20 sources) Pneumonia; Translations: [Infective pneumonia] Onset: 3 06-01-2022 Episodic Residual codes; unclassified (20 sources) Insomnia; Translations: [Insomnia, unspecified] Onset: 3 04-15-2022 Episodic Residual codes; unclassified (20 sources) Altered mental status; Translations: [Altered mental status] Episodic Residual codes; unclassified (20 sources) Postmenopausal state; Translations: [Asymptomatic postmenopausal status (age-related) (natural)] 04-15-2022 Episodic Residual codes; unclassified (10 sources) Ankle edema; Translations: [Effusion of joint, ankle and foot] Episodic Residual codes; unclassified (20 sources) Body mass index 20-24 - normal; Translations: [Body Mass Index between 19-24, adult] Episodic Screening and history of mental health and substance abuse codes (20 sources) H/O: psychiatric disorder; Translations: [H/O: depression] Episodic Comment on above: Added by Problem Clarice young Migration; 2012-08-06; Spondylosis; intervertebral disc disorders; other back problems (20 sources) Lumbar spondylosis; Translations: [Lumbosacral spondylosis without myelopathy] Onset: 3 03-02-2022 Chronic Comment on above: Added by Problem Clarice young Migration; 2012-04-06; Moved to [facility] Jan 01 2013 4:07PM; Spondylosis; intervertebral disc disorders; other back problems (20 sources) Lumbar radiculopathy; Translations: [Backache] Onset: 3 03-02-2022 Episodic Syncope (2 sources) Syncope; Translations: [Syncope and collapse] Episodic Thyroid disorders (20 sources) Acquired hypothyroidism; Translations: [Unspecified acquired hypothyroidism] Onset: 1 11-21-2021 Chronic Unclassified (1 source) Unknown / UNK(Unknown) Onset: 8 Unclassified (2 sources) Volvulus / K56.2(ICD-10) Onset: 8 Unclassified (1 source) Disorientation, unspecified / R41.0(ICD-10) Onset: 8 Unclassified (1 source) Nocturnal enuresis / N39.44(ICD-10) Onset: 7 Unclassified (1 source) Other specified disorders of bladder / N32.89(ICD-10) Onset: 7 Unclassified (1 source) Acute cystitis without hematuria / N30.00(ICD-10) Onset: 7 Unclassified (1 source) Acute kidney failure, unspecified / N17.9(ICD-10) Onset: 8 Unclassified (2 sources) Pure hypercholesterolemia, unspecified / E78.00(ICD-10) Onset: 8 Unclassified (1 source) Unspecified severe protein-calorie malnutrition / E43(ICD-10) Onset: 8 Unclassified (1 source) Acquired absence of other specified parts of digestive tract / Z90.49(ICD-10) Onset: 8 Unclassified (1 source) Encephalopathy, unspecified / G93.40(ICD-10) Onset: 8 Unclassified (2 sources) Dehydration / E86.0(ICD-10) Onset: 8 Unclassified (2 sources) Allergy status to other antibiotic agents status / Z88.1(ICD-10) Onset: 8 Unclassified (1 source) retirement (current) use of aspirin / Z79.82(ICD-10) Onset: 8 Unclassified (1 source) Hypercalcemia / E83.52(ICD-10) Onset: 8 Unclassified (1 source) Moderate protein-calorie malnutrition / E44.0(ICD-10) Onset: 8 Unclassified (1 source) Hypertensive heart disease with heart failure / I11.0(ICD-10) Onset: 8 Unclassified (1 source) Age-related osteoporosis w/o current pathological fracture / M81.0(ICD-10) Onset: 8 Unclassified (1 source) Adult failure to thrive / R62.7(ICD-10) Onset: 8 Unclassified (1 source) Unspecified osteoarthritis, unspecified site / M19.90(ICD-10) Onset: 8 Unclassified (1 source) Presence of aortocoronary bypass graft / Z95.1(ICD-10) Onset: 8 Unclassified (2 sources) Altered mental status, unspecified / R41.82(ICD-10) Onset: 8 Unclassified (1 source) Magnesium deficiency / E61.2(ICD-10) Onset: 8 Unclassified (1 source) Noninfective gastroenteritis and colitis, unspecified / K52.9(ICD-10) Onset: 8 Unclassified (1 source) 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 / Z79.02(ICD-10) Onset: 8 Unclassified (1 source) Contusion of other part of head, initial encounter / S00.83XA(ICD-10) Onset: 8 Unclassified (1 source) Unspecified fall, initial encounter / W19.XXXA(ICD-10) Onset: 8 Unclassified (1 source) Body mass index (BMI) 20.0-20.9, adult / Z68.20(ICD-10) Onset: 8 Unclassified (1 source) Personal history of urinary (tract) infections / Z87.440(ICD-10) Onset: 8 Unclassified (1 source) Presence of coronary angioplasty implant and graft / Z95.5(ICD-10) Onset: 8 Unclassified (1 source) Unsp intestnl obst, unsp as to partial versus complete obst / K56.609(ICD-10) Onset: 8 Unclassified (1 source) Other vascular disorders of intestine / K55.8(ICD-10) Onset: 8 Unclassified (1 source) Lower abdominal pain, unspecified / R10.30(ICD-10) Onset: 8 Unclassified (1 source) Cachexia / R64(ICD-10) Onset: 8 Unclassified (1 source) Anorexia / R63.0(ICD-10) Onset: 8 Unclassified (1 source) Acquired absence of both cervix and uterus / Z90.710(ICD-10) Onset: 8 Unclassified (1 source) Gout, unspecified / M10.9(ICD-10) Onset: 8 Unclassified (1 source) Anxiety disorder, unspecified / F41.9(ICD-10) Onset: 8 Unclassified (2 sources) Partial intestinal obstruction, unspecified as to cause / K56.600(ICD-10) Onset: 8 Urinary tract infections (20 sources) Acute urinary tract infection; Translations: [Acute cystitis] Episodic Urinary tract infections (2 sources) Urinary tract infections Onset: 7 Past or Other Problems Problem Classification Problem Date Documented Da te Episodic/Chronic Bacterial infection; unspecified site (1 source) Personal history of Methicillin resistant Staphylococcus aureus infection; Translations: [Personal history of methicillin resis staph infection] Onset: 8 Episodic Coronary atherosclerosis and other heart disease (2 sources) Presence of aortocoronary bypass graft; Translations: [Aortocoronary bypass graft present] Onset: 8 11-21-2021 Episodic Deficiency and other anemia (1 source) Iron deficiency anemia, unspecified; Translations: [Iron deficiency anemia, unspecified] Onset: 8 Episodic Deficiency and other anemia (3 sources) Anemia, unspecified; Translations: [Anemia, unspecified] Onset: 8 Episodic Gastrointestinal hemorrhage (1 source) Gastrointestinal hemorrhage; Translations: [Gastrointestinal hemorrhage, unspecified] Onset: 1 11-21-2021 Episodic Intestinal infection (20 sources) Clostridium difficile colitis; Translations: [Intestinal infection due to Clostridium difficile] Onset: 1 11-21-2021 Episodic Intestinal obstruction without hernia (20 sources) Volvulus; Translations: [Intestinal adhesions with obstruction] Onset: 8 Resolved: 1 Episodic Intracranial injury (3 sources) Contusion and laceration of right cerebrum without loss of consciousness, initial encounter; Translations: [Contus/lac right cerebrum w/o loss of consciousness, init] Onset: 8 Episodic Nausea and vomiting (1 source) Nausea; Translations: [Nausea] Onset: 8 Episodic Open wounds of head; neck; and trunk (1 source) Laceration without foreign body of left eyelid and periocular area, initial encounter; Translations: [Laceration w/o fb of left eyelid and periocular area, init] Onset: 8 Episodic Other aftercare (1 source) Encounter for palliative care; Translations: [Encounter for palliative care] Onset: 8 Episodic Other circulatory disease (1 source) Other specified symptoms and signs involving the circulatory and respiratory systems; Translations: [Oth symptoms and signs involving the circ and resp systems] Onset: 3 Episodic Other diseases of bladder and urethra (20 sources) Spasm of bladder; Translations: [Other specified disorders of bladder] Resolved: 7 Chronic Other gastrointestinal disorders (20 sources) H/O: gastrointestinal disease; Translations: [History of esophageal reflux] Episodic Other gastrointestinal disorders (20 sources) Personal history of other diseases of the digestive system; Translations: [History of bowel obstruction] Resolved: 8 Episodic Other gastrointestinal disorders (20 sources) H/O: colitis; Translations: [Personal history of other diseases of digestive system] Resolved: 0 Episodic Other lower respiratory disease (9 sources) H/O: hay fever; Translations: [History of allergic rhinitis] Episodic Other lower respiratory disease (7 sources) Hypoxia; Translations: [Hypoxemia] Onset: 3 Resolved: 3 05-30-2022 Episodic Other lower respiratory disease (5 sources) Hypoxemia; Translations: [Hypoxemia] Onset: 3 Episodic Other lower respiratory disease (1 source) Other nonspecific abnormal finding of lung field; Translations: [Other nonspecific abnormal finding of lung field] Onset: 3 Episodic Other nervous system disorders (1 source) Dysarthria and anarthria; Translations: [Dysarthria and anarthria] Onset: 8 Episodic Other nutritional; endocrine; and metabolic disorders (2 sources) Body mass index (BMI) 19.9 or less, adult; Translations: [Body mass index (BMI) 19.9 or less, adult] Onset: 8 Episodic Other nutritional; endocrine; and metabolic disorders (1 source) Adult failure to thrive; Translations: [Adult failure to thrive] Onset: 8 Episodic Other nutritional; endocrine; and metabolic disorders (20 sources) History of nutritional deficiency; Translations: [Personal history of nutritional deficiency] Resolved: 1 Episodic Peripheral and visceral atherosclerosis (20 sources) Acute ischemic colitis; Translations: [Acute ischemic colitis] Episodic Peripheral and visceral atherosclerosis (2 sources) Acute (reversible) ischemia of large intestine, extent unspecified; Translations: [Acute ischemic colitis] Phlebitis; thrombophlebitis and thromboembolism (1 source) Personal history of other venous thrombosis and embolism; Translations: [Personal history of other venous thrombosis and embolism] Onset: 8 Episodic Residual codes; unclassified (1 source) Insomnia, unspecified; Translations: [Insomnia, unspecified] Onset: 8 Episodic Residual codes; unclassified (1 source) Do not resuscitate; Translations: [Do not resuscitate] Onset: 8 Episodic Residual codes; unclassified (4 sources) For resuscitation; Translations: [Other specified health status] Onset: 3 06-01-2022 Episodic Residual codes; unclassified (5 sources) Asymptomatic menopausal state; Translations: [Asymptomatic menopausal state] Onset: 3 Episodic Residual codes; unclassified (20 sources) Requires vaccination; Translations: [Need for vaccination] Residual codes; unclassified (19 sources) Immunization due; Translations: [Immunization due] Unclassified (1 source) M54.9 Onset: 8 Unclassified (1 source) Encephalopathy, unspecified; Translations: [Encephalopathy, unspecified] Onset: 8 Unclassified (1 source) Partial intestinal obstruction, unspecified as to cause; Translations: [Partial intestinal obstruction, unspecified as to cause] Onset: 8 Unclassified (20 sources) Influenza vaccination given; Translations: [Influenza vaccination administered at current visit] Unclassified (20 sources) History of Screening for malignant neoplasms, colon Unclassified (20 sources) Screening status; Translations: [Screening] Unclassified (20 sources) Patient encounter status; Translations: [Encounter for screening mammogram for breast cancer] Unclassified (4 sources) Vaccination needed; Translations: [Need for vaccination] Unclassified (1 source) Carotid artery finding; Translations: [Abnormal carotid duplex scan] Unclassified (20 sources) Screening for malignant neoplasms, colon Onset: 9 Unclassified (5 sources) Onset: 3 04-15-2022 NEGATED: Highlighted row has not occurred!Residual codes; unclassified (20 sources) Disease Episodic Results Test Name Value Interpretation Reference Range Facility Absolute lymphocyte countOrd ered By: Jacobo Moya on 07-25-2024 Lymphocytes Auto (Unsp spec) [#/Vol] 1.75 10*3/uL 0.83-4.51 [facility] Absolute neutrophil countOrd ered By: Jacobo Moya on 07-25-2024 Neutrophils (Bld) [#/Vol] 5.3 10*3/uL 2.0-7.7 [facility] Activated partial thrombopla stin time (aPTT) in platelet poor plasma by coagulation aOrdered By: Jacobo Moya on 07-25-2024 aPTT Coag (PPP) [Time] 27.1 s 24.1-36.2 [facility] Anion gap in Serum or Plasma Ordered By: Jacobo Moya on 06-16-2025 Anion gap [Moles/Vol] 9 mmol/L 5-15 [facility] Automated lymphocyte count a s percentage of total leukocytesOrdered By: Jacobo Moya on 07-25-2024 Lymphocytes/100 WBC Auto (Unsp spec) 22.9 % 19-41 [facility] BUN/creatinine ratioOrdered By: Jacobo Moya on 07-25-2024 Urea nitrogen/Creatinine [Mass ratio] 13.5 mg/mg 10-20 [facility] Basophil percentageOrdered B y: Jacobo Moya on 07-25-2024 Basophils/100 WBC (Bld) 0.4 % 0-1 [facility] Carbon dioxide, total [Moles /volume] in Central venous bloodOrdered By: Jacobo Moya on 07-25-2024 CO2 [Moles/Vol] 26.5 mmol/L 21.0-32.0 [facility] Chloride assayOrdered By: Luis Angel Moya on 07-25-2024 Chloride [Moles/Vol] 98 mmol/L 98-108 [facility] Eosinophil percentageOrdered By: Jacobo Moya on 07-25-2024 Eosinophils/100 WBC (Bld) 0.9 % 0-5 [facility] Erythrocyte distribution wid th ratioOrdered By: Jacobo Moya on 07-25-2024 Erythrocyte distribution width (RBC) [Ratio] 14.1 % 11.6-14.6 [facility] Erythrocyte distribution wid th standard deviationOrdered By: Jacobo Moya on 07-25-2024 Erythrocyte distribution width (RBC) [Ratio] 49.4 fl High 35.1-43.9 [facility] Glomerular filtration rate ( GFR) estimation/1.73 sq m using serum, plasma, or whole bOrdered By: Jacobo Moya on 07-25-2024 GFR/1.73 sq M.predicted among non-blacks MDRD (S/P/Bld) [Vol rate/Area] 60 mL/min/{1.73_m2} >60 [facility] Comment on above: mL/min/1.73m2 CKD-EP I Creatinine Equation (2020) Hematocrit Auto (Bld) [Volum e fraction]Ordered By: Jacobo Moya on 07-25-2024 Hematocrit (Bld) [Volume fraction] 31.6 % Low 37-47 [facility] Hemoglobin measurementOrdere d By: Jacobo Moya on 07-25-2024 Hemoglobin (Bld) [Mass/Vol] 10.7 g/dL Low 12.0-15.0 [facility] Immature granulocytes/100 WB C Auto (Bld)Ordered By: Jacobo Moya on 07-25-2024 Immature granulocytes/100 WBC (Bld) 0.400 % 0.0-0.9 [facility] Comment on above: IG% - Immature Granu locytes (promyelocytes, myelocytes and metamyelocytes) > 1% indicates that a LEFT SHIFT is Present. International normalized rat io (INR) calculationOrdered By: Jacobo Moya on 07-25-2024 INR Coag (Bld) [Relative time] 1.0 {INR} [facility] MCV (mean corpuscular volume ) determinationOrdered By: Jacobo Moya on 07-25-2024 MCV (RBC) [Entitic vol] 96.3 fL 81-99 [facility] Mean corpuscular hemoglobin (MCH) determinationOrdered By: Jacobo Moya on 07-25-2024 MCH (RBC) [Entitic mass] 32.6 pg High 27.0-32.0 [facility] Mean corpuscular hemoglobin concentration (MCHC) determinationOrdered By: Jacobo Moya on 07-25-2024 MCHC (RBC) [Mass/Vol] 33.9 g/dL 32-36 [facility] Mean platelet volume determi nationOrdered By: Jacobo Moya on 07-25-2024 Platelet mean volume (Bld) [Entitic vol] 9.1 fL 6.2-12.0 [facility] Monocyte percentageOrdered B y: Jacobo Moya on 07-25-2024 Monocytes/100 WBC (Bld) 6.2 % 0-10 [facility] Neutrophil percentageOrdered By: Jacobo Moya on 07-25-2024 Neutrophils/100 WBC (Bld) 69.2 % 47-70 [facility] Nucleated red blood cell per centageOrdered By: Jacobo Moya on 07-25-2024 Nucleated RBC/100 WBC (Bld) [Ratio] 0 % 0-5 [facility] Platelet countOrdered By: Luis Angel Moya on 07-25-2024 Platelets (Bld) [#/Vol] 181 10*3/uL 150-450 [facility] Potassium measurement (mass/ volume)Ordered By: Jacobo Moya on 07-25-2024 Potassium (Unsp spec) [Mass/Vol] 5.0 mmol/L 3.3-5.1 [facility] Comment on above: Hemolysis present, R esults could be affected. Prothrombin timeOrdered By: Jacobo Moya on 07-25-2024 PT Coag (PPP) [Time] 13.0 s 11.7-14.9 [facility] RBC Auto (Bld) [#/Vol]Ordere d By: Jacobo Moya on 07-25-2024 RBC (Bld) [#/Vol] 3.28 10*6/uL Low 4.2-5.4 [facility] Serum creatinine measurement (mass/volume)Ordered By: Jacobo Moya on 07-25-2024 Creatinine [Mass/Vol] 0.92 mg/dL 0.70-1.20 [facility] Serum glucose measurement (m ass/volume)Ordered By: Jacobo Moya on 07-25-2024 Glucose [Mass/Vol] 126 mg/dL High 70-99 [facility] Serum or plasma calcium светлана urement (mass/volume)Ordered By: Jacobo Moya on 07-25-2024 Calcium [Mass/Vol] 8.8 mg/dL 7.6-11.0 [facility] Serum or plasma urea nitroge n measurement (mass/volume)Ordered By: Jacobo Moya on 07-25-2024 Urea nitrogen [Mass/Vol] 13 mg/dL 4-19 [facility] Sodium levelOrdered By: Jacobo Moya on 07-25-2024 Sodium [Moles/Vol] 134 mmol/L 133-145 [facility] White blood cell (WBC) count Ordered By: Jacobo Moya on 07-25-2024 WBC (Bld) [#/Vol] 7.6 10*3/uL 4.4-11.0 [facility] Office Visit (Cardiology)on 10-27-2022 Follow-up visit Diagnoses/Problems Assessed CAD (coronary artery disease) (414.00) (I25.10) Syncope (780.2) (R55) Orders CAD (coronary artery disease) Changed: From Isosorbide Mononitrate ER 60 MG Oral Tablet Extended Release 24 Hour TAKE 1 TABLET ONCE DAILY To Isosorbide Mononitrate ER 30 MG Oral Tablet Extended Release 24 Hour Take 1 tablet by mouth daily Electrocardiogram 12 Lead; Status:Active; Requested for:[id number]; Osteoporosis Stop: Oscal 500/200 D-3 TABS Unlinked Stop: Iron 325 MG TABS History of Present Illness Mrs Judge is an 87 year old female with anemia, mitral regurg, rheumatic fever as a child, hypothyroidism, hypertension, hyperlipidemia, NE,m CAD, CABG and then an angioplasty after CABG, carotid artery disease, CVA, CKD, chronic colitis, osteoporosis, insomnia and peripheral neuropathy, here for an acute visit for a syncopal event. She reports that she was admitted to the hospital for pneumonia with respiratory failure for 7 days. She is now under going rehab in [facility] and is now on continuous O2. She reports that after urinating, she had a syncopal episode. She is unsure what caused this syncopal episode. She denies any complaints of chest pain, lower extremity edema or weight gain. She does complain of shortness of breath and weight loss since her hospitalization. Active Problems Problems Abnormal CT of the abdomen (793.6) (R93.5) Age-related cognitive decline (294.9) (R41.81) Allergic rhinitis (477.9) (J30.9) Anemia (285.9) (D64.9) Anemia in other chronic diseases classified elsewhere (285.29) (D63.8) Aortic stenosis (424.1) (I35.0) Back pain (724.5) (M54.9) Benign essential hypertension (401.1) (I10) Bilateral carotid artery stenosis (433.10,433.30) (I65.23) Body mass index (BMI) of 20.0 to 20.9 in adult (V85.1) (Z68.20) CAD (coronary artery disease) (414.00) (I25.10) Cerebral atherosclerosis (437.0) (I67.2) Chronic diastolic CHF (congestive heart failure), NYHA class 1 (428.32) (I50.32) Chronic kidney disease, stage III (moderate) (585.3) (N18.30) Colitis (558.9) (K52.9) GERD (gastroesophageal reflux disease) (530.81) (K21.9) Hiatal hernia (553.3) (K44.9) History of vitamin D deficiency (V12.1) (Z86.39) Hypercholesterolemia (272.0) (E78.00) Immunization due (V05.9) (Z23) Insomnia, unspecified type (780.52) (G47.00) Ischemic colitis (557.9) (K55.9) Lumbar spondylosis (721.3) (M47.816) Added by Problem List Migration; 2012-04-06; Moved to [facility] Jan 01 2013 4:07PM Medicare annual wellness visit, subsequent (V70.0) (Z00.00) Medication management (V58.69) (Z79.899) Moderate mitral valve regurgitation (424.0) (I34.0) MVP (mitral valve prolapse) (424.0) (I34.1) Osteoporosis (733.00) (M81.0) Peripheral neuropathy (356.9) (G62.9) Pneumonia, bacterial (482.9) (J15.9) Postmenopausal estrogen deficiency (V49.81) (Z78.0) Special screening for other conditions (V82.89) (Z13.89) Underweight (783.22) (R63.6) Vertebral compression fracture (805.8) (M48.50XA) Surgical History Problems History of Appendectomy History of CABG History of Cataract Surgery History of Colectomy subtotal History of Complete Colonoscopy History of Diagnostic Esophagogastroduodenoscopy History of Exploratory Laparoscopy explorative laparotomy ballon angioplasty History of Hysterectomy History of Knee Replacement History of Knee Replacement History of Knee Replacement Past Medical History Problems History of Acute Myocardial Infarction (V12.59) History of Acute Non-Q-wave Myocardial Infarction - Initial Care ([place]) (410.71) Added by Problem List Migration; 2012-08-06 History of Arthritis (V13.4) History of Atherosclerotic heart disease of [place] coronary artery with unspecified angina pectoris (414.01,413.9) (I25.119) Added by Problem List Migration; 2012-10-05 History of Bladder spasm (596.89) (N32.89) Resolved Date: 21 Jan 2017 History of Caries (521.00) (K02.9) History of Cerebral Degenerations And Movement Disorders (331.9) Added by Problem List Migration; 2012-08-06 History of Cerebral ischemia (437.1) (I67.82) Added by Problem List Migration; 2012-08-06 History of Colitis (558.9) (K52.9) History of Essential familial hypercholesterolemia (272.0) (E78.01) History of allergic rhinitis (V12.69) (Z87.09) History of aortic valve disorder (V12.59) (Z86.79) Added by Problem List Migration; 2012-10-05 History of blood coagulation disorder (V12.3) (Z86.2) Added by Problem List Migration; 2012-08-06 History of colitis (V12.79) (Z87.19) Resolved Date: 14 Nov 2019 History of crescendo angina (V12.59) (Z86.79) Added by Problem List Migration; 2012-10-05 History of depression (V11.8) (Z86.59) History of esophageal reflux (V12.79) (Z87.19) History of gastrointestinal hemorrhage (V12.79) (Z87.19) History of pleural effusion (V12.69) (Z87.09) Added by Problem List Migration; 2012-08-06 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 Normal [employer] BASIC METABOLIC PANELon 09-0 Anion gap [Moles/Vol] -2 mmol/L Low 3-13 [facility] Comment on above: Performed By: #### L [id number] ####Foreign Trade Teacher: REINA FARIA ([id number])[facility] [place] (SBHLAB)[address] [place] [address] [facility] Calcium [Mass/Vol] 8.5 mg/dL Normal 8.4-10.4 [facility] Comment on above: Performed By: #### L [id number] ####Foreign Trade Teacher: REINA FARIA ([id number])[facility]ITAL[facility] [place] (SBHLAB)[address] Chloride [Moles/Vol] 102 mmol/L Normal 98-107 [facility] Comment on above: Performed By: #### L [id number] ####Foreign Trade Teacher: REINA FARIA ([id number])[facility]ITAL[facility] [place] (SBHLAB)[address] CO2 [Moles/Vol] 37 mmol/L High 22-30 [facility] Comment on above: Performed By: #### L [id number] ####Foreign Trade Teacher: REINA FARIA ([id number])[facility] [place] (SBHLAB)[address] Creatinine [Mass/Vol] 0.71 mg/dL Normal 0.52-1.04 [facility] Comment on above: Performed By: #### L [id number] ####Foreign Trade Teacher: REINA FARIA ([id number])[facility]ITAL[facility] [place] (SBHLAB)[address] GLOMERULAR FILTRATION RATE ML/MIN/1.73 SQ M.PREDICTED 82.9 mL/min/1.73m*2 Normal >60.0 [facility] Comment on above: Result Comment: Calc ulation based on the Chronic Kidney Disease Epidemiology Collaboration (CKD-EPI) equation refit without adjustment for race Performed By: #### L [id number] ####Foreign Trade Teacher: REINA FARIA ([id number])[facility]ITAL[facility] [place] (SBHLAB)[address] Glucose [Mass/Vol] 99 mg/dL Normal 70-100 [facility] Comment on above: Performed By: #### L AB15 ####Foreign Trade Teacher: REINA FARIA ([id number])[facility] [place] (SBHLAB)[address] Potassium [Moles/Vol] 4.0 mmol/L Normal 3.5-5.1 [facility] Comment on above: Performed By: #### L AB15 ####Foreign Trade Teacher: REINA FARIA ([id number])[facility] (SBHLAB)[address] Sodium [Moles/Vol] 137 mmol/L Normal 135-145 [facility] Comment on above: Performed By: #### L [id number] ####Foreign Trade Teacher: REINA FARIA ([id number])[facility] (SBHLAB)[address] Urea nitrogen [Mass/Vol] 15 mg/dL Normal 7-17 [facility] Comment on above: Performed By: #### L AB15 ####Foreign Trade Teacher: REINA FARIA ([id number])[facility] (SBHLAB)[address] Basic metabolic 1998 panelon 10-16-2022 Anion gap [Moles/Vol] -2 mmol/L Low 3 - 13 mmol/L [facility] Calcium [Mass/Vol] 8.5 mg/dL 8.4 - 10. 4 mg/dL [facility] Chloride [Moles/Vol] 102 mmol/L 98 - 10 7 mmol/L [facility] CO2 [Moles/Vol] 37 mmol/L High 22 - 30 mmol/L [facility] Creatinine [Mass/Vol] 0.71 mg/dL 0.52 - 1.04 mg/dL [facility] GFR/1.73 sq M.predicted MDRD (S/P/Bld) [Vol rate/Area] 82.9 mL/min/{1.73_m2} - PINF [facility] Comment on above: Calculation based on the Chronic Kidney Disease Epidemiology Collaboration (CKD-EPI) equation refit without adjustment for race Glucose [Mass/Vol] 99 mg/dL 70 - 100 mg/dL [facility] Interpretation and review of laboratory results Abnormal [facility] Potassium [Moles/Vol] 4.0 mmol/L 3.5 - 5.1 mmol/L [facility] Sodium [Moles/Vol] 137 mmol/L 135 - 145 mmol/L [facility] Urea nitrogen [Mass/Vol] 15 mg/dL 7 - 17 mg/dL [facility] CARECOORDon 10-16-2022 CARECOORD Patient Choice Patient Name: KATHERINE JUDGE Date of : 1935 All Providers Sent Referral Name: [facility] Phone: [phone] Address: [address] [place] [address] Name: [employer] [facility] Phone: [phone] Address: [address] [place] [address] Name: [facility] Address: [address] [place] [address] Normal [facility] CAR[place]OORD Discharge med list transmitted to [facility] via Careport per TCC request. [id number] was entered into [employer] for the SNF- Facility is aware. Normal [facility] CBC W Auto Differential pane l (Bld)on 10-16-2022 Basophils (Bld) [#/Vol] 0.0 10*3/uL 0.0 - 0.2 10*3/uL [facility] Basophils/100 WBC (Bld) 0.8 % 0.0 - 2.0 % [facility] Eosinophils (Bld) [#/Vol] 0.2 10*3/uL 0.0 - 0.5 10*3/uL [facility] Eosinophils/100 WBC (Bld) 4.6 % 1.0 - 6.0 % [facility] Erythrocyte distribution width (RBC) [Ratio] 13.4 % 11.5 - 14.5 % [facility] Hematocrit (Bld) [Volume fraction] 32.8 % Low 35.0 - 47.0 % [facility] Hemoglobin (Bld) [Mass/Vol] 11.1 g/dL Low 11.7 - 16.0 g/dL [facility] Interpretation and review of laboratory results Abnormal [facility] Lymphocytes (Bld) [#/Vol] 1.5 10*3/uL 1.0 - 4.3 10*3/uL [facility] Lymphocytes/100 WBC (Bld) 28.1 % 20.0 - 40.0 % [facility] MCH (RBC) [Entitic mass] 34.3 pg High 26.0 - 34.0 pg [facility] MCHC (RBC) [Mass/Vol] 33.8 % 32.0 - 36.0 % [facility] MCV (RBC) [Entitic vol] 101.5 fL High 80.0 - 98.0 fL [facility] Monocytes (Bld) [#/Vol] 0.5 10*3/uL 0.0 - 0.8 10*3/uL [facility] Monocytes/100 WBC (Bld) 9.7 % 2.0 - 10.0 % [facility] Neutrophils (Bld) [#/Vol] 3.1 10*3/uL 1.8 - 7.0 10*3/uL [facility] Neutrophils/100 WBC (Bld) 56.8 % 40.0 - 80.0 % [facility] Nucleated RBC/100 WBC (Bld) [Ratio] 0.0 % [facility] Platelet mean volume (Bld) [Entitic vol] 6.9 fL Low 7.4 - 12.4 fL [facility] Platelets (Bld) [#/Vol] 232 10*3/uL 140 - 440 10*3/uL [facility] RBC (Bld) [#/Vol] 3.23 10*6/uL Low 3.8 - 5.20 10*6/uL [facility] WBC (Bld) [#/Vol] 5.5 10*3/uL 3.6 - 10.7 10*3/uL [facility] CBC WITH AUTO DIFFERENTIALon 10-16-2022 Basophils (Bld) [#/Vol] 0.0 10*3/uL Normal 0.0-0.2 [facility] Comment on above: Performed By: #### L [id number] #### Foreign Trade Teacher: REINA FARIA ([id number]) [facility] ([facility]) [address] Basophils/100 WBC (Bld) 0.8 % Normal 0.0-2.0 [facility] Comment on above: Performed By: #### L [id number] #### Foreign Trade Teacher: REINA FARIA ([id number]) [facility] ([facility] [address] Eosinophils (Bld) [#/Vol] 0.2 10*3/uL Normal 0.0-0.5 [facility] Comment on above: Performed By: #### L [id number] #### Foreign Trade Teacher: REINA FARIA ([id number]) [facility] (SBHLAB) [address] Eosinophils/100 WBC (Bld) 4.6 % Normal 1.0-6.0 [facility] Comment on above: Performed By: #### L [id number] #### Foreign Trade Teacher: REINA FARIA ([id number]) [facility] (SBHLAB) [address] Erythrocyte distribution width (RBC) [Ratio] 13.4 % Normal 11.5-14.5 [facility] Comment on above: Performed By: #### L [id number] #### Foreign Trade Teacher: REINA GARCIAGREGORY ([id number]) [facility] (SBAB) [address] ERYTHROCYTE MEAN CORPUSCULAR HEMOGLOBIN CONCENTRATION (G/DL) BY AUTOMATED 33.8 % Normal 32.0-36.0 [facility] Comment on above: Performed By: #### L [id number] #### Foreign Trade Teacher: REINA GARCIAGREGORY ([id number]) [facility] (SBHLAB) [address] Hematocrit (Bld) [Volume fraction] 32.8 % Low 35.0-47.0 [facility] Comment on above: Performed By: #### L [id number] #### Foreign Trade Teacher: REINA FARIA ([id number]) [facility] (SB[facility]) [address] Hemoglobin (Bld) [Mass/Vol] 11.1 g/dL Low 11.7-16.0 [facility] Comment on above: Performed By: #### L [id number] #### Foreign Trade Teacher: REINA FARIA ([id number]) [facility] (SB[facility]) [address] Lymphocytes (Bld) [#/Vol] 1.5 10*3/uL Normal 1.0-4.3 [facility] Comment on above: Performed By: #### L [id number] #### Foreign Trade Teacher: REINA FARIA ([id number]) [facility] [place] (SBHLAB) [address] Lymphocytes/100 WBC (Bld) 28.1 % Normal 20.0-40.0 [facility] Comment on above: Performed By: #### L [id number] #### Foreign Trade Teacher: REINA FARIA ([id number]) [facility] (SBHLAB) [address] MCH (RBC) [Entitic mass] 34.3 pg High 26.0-34.0 [facility] Comment on above: Performed By: #### L [id number] #### Foreign Trade Teacher: REINA FARIA ([id number]) [facility] ([facility] [address] MCV (RBC) [Entitic vol] 101.5 fL High 80.0-98.0 [facility] Comment on above: Performed By: #### L [id number] #### Foreign Trade Teacher: REINA FARIA ([id number]) [facility] ([facility] [address] [place] [address] [place] Monocytes (Bld) [#/Vol] 0.5 10*3/uL Normal 0.0-0.8 [facility] Comment on above: Performed By: #### L [id number] #### Foreign Trade Teacher: REINA FARIA ([id number]) [facility] (SBHLAB) [address] [place] [address] [place] Monocytes/100 WBC (Bld) 9.7 % Normal 2.0-10.0 [facility] Comment on above: Performed By: #### L [id number] #### Foreign Trade Teacher: REINA FARIA ([id number]) [facility] (HLAB) [address] [place] [address] [place] Neutrophils (Bld) [#/Vol] 3.1 10*3/uL Normal 1.8-7.0 [facility] Comment on above: Performed By: #### L [id number] #### Foreign Trade Teacher: REINA FARIA ([id number]) [facility] (SB[facility]) [address] Neutrophils/100 WBC (Bld) 56.8 % Normal 40.0-80.0 [facility] Comment on above: Performed By: #### L [id number] #### Foreign Trade Teacher: REINA FARIA ([id number]) [facility] (SB[facility]) [address] NRBC (PER 100 WBCS) BY AUTOMATED COUNT 0.0 /100 WBCs Normal 0.0-2.0 [facility] Comment on above: Performed By: #### L [id number] #### Foreign Trade Teacher: REINA FARIA ([id number]) [facility] (SB[facility]) [address] [place] [address] [place] Platelet mean volume (Bld) [Entitic vol] 6.9 fL Low 7.4-12.4 [facility] Comment on above: Performed By: #### L [id number] #### Foreign Trade Teacher: REINA FARIA ([id number]) [facility] (SB[facility]) [address] [place] [address] [place] PLATELETS (10*3/UL) IN BLOOD AUTOMATED COUNT 232 10*3/uL Normal 140-440 [facility] Comment on above: Performed By: #### L [id number] #### Foreign Trade Teacher: REINA FARIA ([id number]) [facility] [place] (SBHLAB) [address] [place] [address] [place] RBC (Bld) [#/Vol] 3.23 10*6/uL Low 3.8-5.20 [facility] Comment on above: Performed By: #### L [id number] #### Foreign Trade Teacher: REINA FARIA ([id number]) [facility] ([facility]) [address] [place] [address] [place] WBC (Bld) [#/Vol] 5.5 10*3/uL Normal 3.6-10.7 [facility] Comment on above: Performed By: #### L [id number] #### Foreign Trade Teacher: REINA FARIA ([id number]) [facility] (SBHLAB) [address] SARS-CoV-2 (COVID-19) Ag IA. rapid Ql (Resp)Ordered By: Lala Barber on 10-16-2022 Interpretation and review of laboratory results Normal [facility] SARS-CoV-2 AntigenOrdered By : Lala Barber on 10-16-2022 SARS-CoV-2 (COVID-19) Ag IA.rapid Ql (Resp) Negative Negative [facility] Comment on above: A negative result do es not rule out the possibility of SARS-CoV-2 infection. NAAT-based methods should be considered for symptomatic patients presenting greater than seven days after onset of symptoms. Method: Lateral flow immunoassay. Fact sheets for healthcare providers and patients can be found at the following sites: https://www.[employer].gov/media/263694/download https://www.[employer].gov/media/249955/download Basic metabolic 1998 panelon 10-15-2022 Anion gap [Moles/Vol] 1 mmol/L Low 3 - 13 mmol/L [facility] Calcium [Mass/Vol] 8.3 mg/dL Low 8.4 - 10. 4 mg/dL [facility] Chloride [Moles/Vol] 103 mmol/L 98 - 10 7 mmol/L [facility] CO2 [Moles/Vol] 35 mmol/L High 22 - 30 mmol/L [facility] Creatinine [Mass/Vol] 0.61 mg/dL 0.52 - 1.04 mg/dL [facility] GFR/1.73 sq M.predicted MDRD (S/P/Bld) [Vol rate/Area] 87.2 mL/min/{1.73_m2} - PINF [facility] Comment on above: Calculation based on the Chronic Kidney Disease Epidemiology Collaboration (CKD-EPI) equation refit without adjustment for race Glucose [Mass/Vol] 106 mg/dL High 70 - 100 mg/dL [facility] Interpretation and review of laboratory results Abnormal [facility] Potassium [Moles/Vol] 4.2 mmol/L 3.5 - 5.1 mmol/L [facility] Sodium [Moles/Vol] 140 mmol/L 135 - 145 mmol/L [facility] Urea nitrogen [Mass/Vol] 11 mg/dL 7 - 17 mg/dL [facility] CARECOORDon 10-15-2022 MARRY Spoke with Lesley at [facility] & they can accept pt on 10/16. Notified pt & she asked [facility] to follow up with her son. Notified son & he is agreeable.Notified attending, RN & TELEVISION INSPECTOR via secure chat. Normal [facility] CBC W Auto Differential pane l (Bld)on 10-15-2022 Basophils (Bld) [#/Vol] 0.0 10*3/uL 0.0 - 0.2 10*3/uL [facility] Basophils/100 WBC (Bld) 0.6 % 0.0 - 2.0 % [facility] Eosinophils (Bld) [#/Vol] 0.2 10*3/uL 0.0 - 0.5 10*3/uL [facility] Eosinophils/100 WBC (Bld) 2.2 % 1.0 - 6.0 % [facility] Erythrocyte distribution width (RBC) [Ratio] 13.6 % 11.5 - 14.5 % [facility] Hematocrit (Bld) [Volume fraction] 32.4 % Low 35.0 - 47.0 % [facility] Hemoglobin (Bld) [Mass/Vol] 10.8 g/dL Low 11.7 - 16.0 g/dL [facility] Interpretation and review of laboratory results Abnormal [facility] Lymphocytes (Bld) [#/Vol] 1.2 10*3/uL 1.0 - 4.3 10*3/uL [facility] Lymphocytes/100 WBC (Bld) 17.3 % Low 20.0 - 40.0 % [facility] MCH (RBC) [Entitic mass] 34.1 pg High 26.0 - 34.0 pg [facility] MCHC (RBC) [Mass/Vol] 33.5 % 32.0 - 36.0 % [facility] MCV (RBC) [Entitic vol] 101.6 fL High 80.0 - 98.0 fL [facility] Monocytes (Bld) [#/Vol] 0.6 10*3/uL 0.0 - 0.8 10*3/uL [facility] Monocytes/100 WBC (Bld) 8.5 % 2.0 - 10.0 % [facility] [employer] Neutrophils (Bld) [#/Vol] 5.0 10*3/uL 1.8 - 7.0 10*3/uL [facility] Neutrophils/100 WBC (Bld) 71.4 % 40.0 - 80.0 % [facility] Nucleated RBC/100 WBC (Bld) [Ratio] 0.0 % [facility] Platelet mean volume (Bld) [Entitic vol] 7.0 fL Low 7.4 - 12.4 fL [facility] Platelets (Bld) [#/Vol] 223 10*3/uL 140 - 440 10*3/uL [facility] RBC (Bld) [#/Vol] 3.18 10*6/uL Low 3.8 - 5.20 10*6/uL [facility] WBC (Bld) [#/Vol] 7.1 10*3/uL 3.6 - 10.7 10*3/uL [facility] Progress Noteon 10-15-2022 Progress Note Nutrition Assessment Type and Reason for Visit: Reassess Nutrition Recommendations/Plan: Modify diet to Adult diet Regular; Low Fiber per MNT protocol to increase food variety/options while still ensuring GI tolerance of diet. Modify ONS to Ensure Compact and Magic cup each once daily per MNT protocol. Ensure Compact provides 220 kcals, 9g protein per 4 oz serving. Magic cup provides 290 kcals, 9 g protein per serving. Please document pt's PO intakes via flowsheet to accurately assess PO intake adequacy. Monitor intakes, weights, and labs weekly. RD will follow. Malnutrition Assessment: Malnutrition Status: At risk for malnutrition (Comment) (altered GI) Context: Acute Illness Findings of the 6 clinical characteristics of malnutrition: Energy Intake: 50% or less of estimated energy requirements for 5 or more days Weight Loss: No significant weight loss Body Fat Loss: Unable to assess (anticipate some losses from natural aging process) Muscle Mass Loss: Unable to assess Fluid Accumulation: No significant fluid accumulation Patient Financial Specialist Strength: Not Performed Nutrition Assessment: Pt is very pleasant, appeared in no distress this afternoon with visitor at bedside. Pt's diet was advanced to solids today- GI [place], low fiber. Pt reported that she ordered a smaller meal and has tolerated so far without significant ab pain or discomfort. Pt stated that she tries to drink Ensure, but TID may be too frequent. Pt stated that she sometimes has a hard time finishing a whole one. Pt was willing to switch to Ensure compact and Magic cup each once daily. Pt is hoping that she can discharge tomorrow. Estimated Daily Nutrient Needs: Energy Requirements Based On: Kcal/kg Weight Used for Energy Requirements: Admission Weight for Energy Calculation (kg): 49.4 kg Total Energy Requirements (kcals/day): 9489-8668 (30-35 kcal/kg CBW) Weight Used for Protein Requirements: Admission Weight in Kg Used for Protein Requirements: 49.4 kg Estimated Total Protein (g/day): 49-74 (1.0-1.5 g protein/kg CBW) Estimated Daily Total Fluid (ml/day): per MD or ~1605 mL/day Nutrition Related Findings: no edema; CO2 35, Glucose 106, 92, 95, 107 Wound Type: (scattered bruising) Current Nutrition Therapies: Adult diet Regular; Low Fiber Current Oral Intake Average Meal Intake: 51-75% Average Supplements Intake: 26-50% Anthropometric Measures: Height: 152.4 cm (5') Current Body Weight: 47.6 kg (105 lb) Weight Source: Bed Scale Admission Body Weight: 47.4 kg (104 lb 9.6 oz) (bed) Usual Body Weight: 49.9 kg (110 lb) (10/07/22 --> limited weight history per EMR. reports 110# UBW) % Weight Change (Calculated): -4.5 [place] Body Weight (lbs) (Calculated): 100 lbs [place] Body Weight (Kg) (Calculated): 45 kg % [place] Body Weight (Calculated): 105 % BMI (kg/m2) (Calculated): 20.5 Weight Adjustment For: No Adjustment BMI Categories: Normal Weight (BMI 18.5-24.9) Nutrition Diagnosis: Altered GI function related to acute injury/trauma as evidenced by GI abnormality, constipation, diarrhea, other (comment) (from constipation then switched to diarrhea) Nutrition Interventions: Nutrition Education/Counseling: No recommendation at this time Coordination of Nutrition Care: Continue to monitor while inpatient Plan of Care discussed with: Patient Goals: Previous Goal Met: Progressing toward Goal(s) Goals: PO intake 75% or greater, by next RD assessment, other (specify) Specify Other Goals: Pt will tolerate diet without GI symptoms/discomfort Nutrition Monitoring and Evaluation: Behavioral-Environmental Outcomes: None Identified Food/Nutrient Intake Outcomes: Diet Advancement/Tolerance, Food and Nutrient Intake, Supplement Intake Physical Signs/Symptoms Outcomes: Biochemical Data, Diarrhea, Constipation, GI Status, Nausea or Vomiting, Fluid Status or Edema, Nutrition Focused Physical Findings, Skin, Weight Discharge Planning: Continue current diet, Continue Oral Nutrition Supplement Brittni Javed, ELENITA Contact: *[phone] or via Secure Chat Normal [facility] Basic metabolic 1998 panelon 10-14-2022 Anion gap [Moles/Vol] -1 mmol/L Low 3 - 13 mmol/L [facility] [facility] Calcium [Mass/Vol] 8.0 mg/dL Low 8.4 - 10. 4 mg/dL [facility] Chloride [Moles/Vol] 108 mmol/L High 98 - 10 7 mmol/L [facility] CO2 [Moles/Vol] 33 mmol/L High 22 - 30 mmol/L [facility] Creatinine [Mass/Vol] 0.71 mg/dL 0.52 - 1.04 mg/dL [facility] GFR/1.73 sq M.predicted MDRD (S/P/Bld) [Vol rate/Area] 82.9 mL/min/{1.73_m2} - PINF [facility] Comment on above: Calculation based on the Chronic Kidney Disease Epidemiology Collaboration (CKD-EPI) equation refit without adjustment for race Glucose [Mass/Vol] 92 mg/dL 70 - 100 mg/dL [facility] Interpretation and review of laboratory results Abnormal [facility] Potassium [Moles/Vol] 4.2 mmol/L 3.5 - 5.1 mmol/L [facility] Sodium [Moles/Vol] 139 mmol/L 135 - 145 mmol/L [facility] Urea nitrogen [Mass/Vol] 15 mg/dL 7 - 17 mg/dL [facility] CARECOORDon 10-14-2022 [facility] Care Managment Initi al Assessment Date: 10/14/2022 Patient Name: Katherine Judge : 1935 Patient Information Source of Information: Patient Cognition/Language: WFL - Within Functional Limits Permission given to speak with patient billing representative/caregiver as indicated: Yes (Ganga Judge, son, ) Confirmation of Payer with patient/family: Yes Payer Name: Medicare : No (Spouse is a [place]. Made referral to [employer]) Confirmation of Primary Care Physician: Primary Caregiver: Self If assistance needed, confirmed caregiver ready, willing and able to care for patient at discharge: Confirmed with: Living Arrangements Current Residence: Apartment Number of Floors 1 Number of Entry Steps: (No steps) Bed/Bath Levels: Both first floor Facility: Facility Name: Plan to Return: Lives with: Spouse/significant other Support Systems: Spouse/significant other, Children Activities of Daily Living Ambulation: Independent Bathing/Dressing: Independent Elimination/Continence/Toile ting: Independent Feeding: Independent Who Assists with Activities of Daily Living: Self Care Instrumental Activities of Daily Living Prescription Coverage: Yes Pharmacy Used: [facility] [place] Medication Management: Independent Transportation/Shopping: Independent Transportation Mode: Car Needs Assistance with Transportation at Discharge: No Meal Preparation: Independent Laundry/Cleaning: Independent Finances/Bill Paying: Independent Communication: Independent Types of Care Services/Equipment Utilized Care Services: Dialysis Type: NA Durable Medical Equipment: Cane, Rollator, Shower Seat Patient's Goal/Discharge Plan Patient expects to be discharged to: TBD: Home with HHC vs SNF Discharge Planning Actions: Continue to follow Patient's Choice Rights and [employer] Disclosed as Indicated for Post-Acute Care: Yes (Served Medicare Choice list) Interdisciplinary Team Engagement: PT/OT, Home Health Care Social Work Referral for: Additional Information: Chart reviewed. Patient admitted to [facility] for treatment of Proctocolitis. Full liquid diet. PT/OT recommends SNF. Met with patient at bedside. Explained role. She is very pleasant. 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 Reports her son is helpful and lives 20 minutes away. Independent with adls. She does not drive. +PCP, +RX cov, +DME. Discussed SNF. Patient interested. But, wants to discuss with son first. Served Medicare Choice listing. No insurance authorization required to admit to SNF. DC plan: TBD Home with Home care vs SNF Tasked RAGINI perez to follow Remy Whitney RN Normal [facility] System [facility]S CBC W Auto Differential pane l (Bld)Ordered By: Chaya Cook on 10-14-2022 Basophils (Bld) [#/Vol] 0.1 10*3/uL 0.0 - 0.2 10*3/uL [facility] Basophils/100 WBC (Bld) 1.0 % 0.0 - 2.0 % [facility] Eosinophils (Bld) [#/Vol] 0.2 10*3/uL 0.0 - 0.5 10*3/uL [facility] Eosinophils/100 WBC (Bld) 3.3 % 1.0 - 6.0 % [facility] Erythrocyte distribution width (RBC) [Ratio] 13.4 % 11.5 - 14.5 % [facility] Hematocrit (Bld) [Volume fraction] 31.0 % Low 35.0 - 47.0 % [facility] Hemoglobin (Bld) [Mass/Vol] 10.4 g/dL Low 11.7 - 16.0 g/dL [facility] Interpretation and review of laboratory results Abnormal [facility] Lymphocytes (Bld) [#/Vol] 1.4 10*3/uL 1.0 - 4.3 10*3/uL [facility] Lymphocytes/100 WBC (Bld) 22.5 % 20.0 - 40.0 % [facility] MCH (RBC) [Entitic mass] 34.3 pg High 26.0 - 34.0 pg [facility] MCHC (RBC) [Mass/Vol] 33.7 % 32.0 - 36.0 % [facility] MCV (RBC) [Entitic vol] 101.5 fL High 80.0 - 98.0 fL [facility] Monocytes (Bld) [#/Vol] 0.6 10*3/uL 0.0 - 0.8 10*3/uL [facility] Monocytes/100 WBC (Bld) 9.9 % 2.0 - 10.0 % [facility] Neutrophils (Bld) [#/Vol] 4.0 10*3/uL 1.8 - 7.0 10*3/uL [facility] Neutrophils/100 WBC (Bld) 63.3 % 40.0 - 80.0 % [facility] Nucleated RBC/100 WBC (Bld) [Ratio] 0.0 % [employer] Platelet mean volume (Bld) [Entitic vol] 7.0 fL Low 7.4 - 12.4 fL [employer] Platelets (Bld) [#/Vol] 213 10*3/uL 140 - 440 10*3/uL [employer] RBC (Bld) [#/Vol] 3.05 10*6/uL Low 3.8 - 5.20 10*6/uL [facility] [employer] WBC (Bld) [#/Vol] 6.3 10*3/uL 3.6 - 10.7 10*3/uL [facility] [employer] [facility] Progress Noteon 10-14-2022 Progress Note Occupational Therapy Facility/Department: [facility] 2E Occupational Therapy Initial Evaluation NAME: Katherine Judge : 1935 Date of Service: 10/14/2022 Discharge Recommendations: Retirement Facility OT Equipment Recommendations Equipment Needed: No (TBD at next level of care) Assessment REQUIRES OT FOLLOW-UP: Yes Performance deficits / Impairments: Decreased functional mobility , Decreased strength, Decreased ADL status, Decreased safe awareness, Decreased endurance, Decreased balance, Decreased high-level IADLs Assessment: Pt admitting 10/10 with abdominal pain, found to have protocolitis. Pt is independent with ADLs and functional mobility at baseline. At time of eval, pt is SBA-mod A with ADLs and min A for short distance ambulation. Pt is limited by balance, weakness, and fatigue and is functioning below baseline. Pt would benefit from skilled OT services to maxiize safety and independence with ADLs and functional mobility. Rec SNF pending progress. Prognosis: Good Decision Making: Medium Complexity History: Pt admitting 10/10 with abdominal pain, found to have protocolitis. Exam: AM-PAC Assistance / Modification: SBA-mod A Activity Tolerance Activity Tolerance: Patient limited by fatigue Patient Diagnosis(es): The primary encounter diagnosis was Proctocolitis. Diagnoses of Abdominal pain, generalized and Constipation, unspecified constipation type were also pertinent to this visit. has a past medical history of CAD (coronary artery disease), Hypothyroidism, and Ischemic colitis (HCC). has a past surgical history that includes Other surgical history. Restrictions Restrictions/Precautions Restrictions/Precautions: General Precautions, Fall Risk Required Braces or Orthoses?: No Vision/Hearing Vision: Within Functional Limits (appears) Hearing: Functional/adequate for paticipation in therapy Cognition/Orientation Overall Cognitive Status: Exceptions Arousal/Alertness: Appropriate responses to stimuli Following Commands: Follows one step commands with increased time, Follows one step commands with repetition Attention Span: Appears intact Memory: Appears intact Safety Judgement: Decreased awareness of need for safety Problem Solving: Assistance required to generate solutions, Assistance required to implement solutions, Assistance required to identify errors made, Assistance required to correct errors made, Decreased awareness of errors Insights: Decreased awareness of deficits Initiation: Does not require cues Sequencing: Does not require cues Overall Orientation Status: Impaired Orientation Level: Oriented to place, Oriented to person (limited questioning due to lethargic) Subjective General Chart Reviewed: Yes Patient Assessed for Rehabilitation Services: Yes Family / Caregiver Present: No Subjective Subjective: Pt supine in bed at arrival. Pleasant and agreeable General Comments Comments: Per RN, pt ok to see. Patient Stated Goal: none stated Pain Assessment Pain Assessment: 0-10 Pain Score: 7 Pain Location: Back Pain Interventions: Repositioned, Distraction, Ambulation/increased activity Social/Functional History Social/Functional History Lives With: Spouse Type of Home: Independent living Home Layout: One level Home Access: Level entry Bathroom Shower/Tub: Tub/Shower unit Bathroom Equipment: Shower chair Home Equipment: Rollator, Cane ADL Assistance: Independent Homemaking Assistance: Independent Ambulation Assistance: Independent Transfer Assistance: Independent Additional Comments: Pt reports she has been carrying around SPC since fall, but reports independent with no AD. Objective Gross Assessment: Yes AROM: Generally decreased, functional Strength: Generally decreased, functional (grossly 4/5) Coordination: Generally decreased, functional Sensation: Intact (denies numbness and tingling) Observation/Palpation Posture: Fair Observation: NC and PIV in tact Balance Sitting Balance: Stand by assistance Standing Balance: Minimal assistance Standing Balance Time: ~1.5 minutes Activity: static standing, ADLs Comment: Pt standing with min A for balance and no device. No true LOB noted. 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 No true LOB noted however pt demo mild unsteadiness. Increased SOB and fatigue noted. Toilet Transfers Toilet - Technique: Ambulating Equipment Used: Standard bedside commode Toilet Transfer: Minimal assistance Toilet Transfers Comments: Min A and verbal cues for hand placement. No true LOB noted. ADL Feeding: Independent Grooming: Stand by assistance UE Bathing: Stand by assistance LE Bathing: Moderate assistance UE Dressing: Stand by assistance LE Dress (more content not included)... Normal [facility] XR Abdomen Single viewon FINDINGS/IMPRESSION: Limitations: Somewhat limited by patient positioning/rotation Diffuse gaseous distention which appears to be predominantly involving large bowel. Overall stool burden appears mild. Anastomotic sutures right hemiabdomen. Vascular calcifications. Osseous structures are unchanged in appearance. Right greater than left pleural-parenchymal opacities in part likely reflect patient's known large hiatal hernia. Report Dictated on Electronically Signed By: Shaquille Norton MD Electronically Signed Date/Time: 10/14/2022 12:15 PM EDT [facility] Patient Name: KATHERINE SIMON : 1935 Exam Date/Time: 10/14/2022 08:50 Procedure: XR ABDOMEN 1 VIEW Ordering Provider: VINES JEFFREY Reason For Exam: CONSTIPATION CLINICAL INDICATION: Constipation. TECHNIQUE: AP view of the abdomen COMPARISON: Chest radiographs previous day, CT 10/10/2022 [facility] Frances Norton MD - 10/14/2022 Patient Name: KATHERINE JUDGE : 1935 Exam Date/Time: 10/14/2022 08:50 Procedure: XR ABDOMEN 1 VIEW Ordering Provider: VINES JEFFREY Reason For Exam: CONSTIPATION CLINICAL INDICATION: Constipation. TECHNIQUE: AP view of the abdomen COMPARISON: Chest radiographs previous day, CT 10/10/2022 IMPRESSION: FINDINGS/IMPRESSION: Limitations: Somewhat limited by patient positioning/rotation Diffuse gaseous distention which appears to be predominantly involving large bowel. Overall stool burden appears mild. Anastomotic sutures right hemiabdomen. Vascular calcifications. Osseous structures are unchanged in appearance. Right greater than left pleural-parenchymal opacities in part likely reflect patient's known large hiatal hernia. Report Dictated on Electronically Signed By: Shaquille Norton MD Electronically Signed Date/Time: 10/14/2022 12:15 PM EDT [facility] Radiology Study observation (narrative) [facility] XR Abdomen Single viewOrdere d By: Frances Norton on 10-14-2022 [facility] [employer] Work Phone: Bacteria identified Aer cx N om (Lower resp)Ordered By: Tobi Lim on 10-13-2022 Gram Stain Result Moderate Epithelial cells per low power field Abnormal [facility] Gram Stain Result Few Polymorphonuclea r leukocytes per low power field Abnormal [facility] Gram Stain Result Negative Abnormal [facility] Interpretation and review of laboratory results Abnormal [facility] Basic metabolic 1998 panelon 10-13-2022 Anion gap [Moles/Vol] 1 mmol/L Low 3 - 13 mmol/L [facility] Calcium [Mass/Vol] 8.2 mg/dL Low 8.4 - 10. 4 mg/dL [facility] Chloride [Moles/Vol] 110 mmol/L High 98 - 10 7 mmol/L [facility] CO2 [Moles/Vol] 28 mmol/L 22 - 30 mmol/L [facility] Creatinine [Mass/Vol] 0.90 mg/dL 0.52 - 1.04 mg/dL [facility] GFR/1.73 sq M.predicted MDRD (S/P/Bld) [Vol rate/Area] 62.4 mL/min/{1.73_m2} - PINF [facility] Comment on above: Calculation based on the Chronic Kidney Disease Epidemiology Collaboration (CKD-EPI) equation refit without adjustment for race Glucose [Mass/Vol] 95 mg/dL 70 - 100 mg/dL [facility] Interpretation and review of laboratory results Abnormal [facility] Potassium [Moles/Vol] 4.5 mmol/L 3.5 - 5.1 mmol/L [facility] Sodium [Moles/Vol] 138 mmol/L 135 - 145 mmol/L [facility] Urea nitrogen [Mass/Vol] 20 mg/dL High 7 - 17 mg/dL [facility] CBC W Auto Differential pane l (Bld)Ordered By: Va Joe on 10-13-2022 Basophils (Bld) [#/Vol] 0.0 10*3/uL 0.0 - 0.2 10*3/uL [facility] Basophils/100 WBC (Bld) 0.4 % 0.0 - 2.0 % [facility] Eosinophils (Bld) [#/Vol] 0.2 10*3/uL 0.0 - 0.5 10*3/uL [facility] Eosinophils/100 WBC (Bld) 2.4 % 1.0 - 6.0 % [facility] Erythrocyte distribution width (RBC) [Ratio] 13.8 % 11.5 - 14.5 % [facility] Hematocrit (Bld) [Volume fraction] 29.3 % Low 35.0 - 47.0 % [facility] Hemoglobin (Bld) [Mass/Vol] 9.8 g/dL Low 11.7 - 16.0 g/dL [facility] Interpretation and review of laboratory results Abnormal [facility] Lymphocytes (Bld) [#/Vol] 1.6 10*3/uL 1.0 - 4.3 10*3/uL [facility] Lymphocytes/100 WBC (Bld) 20.5 % 20.0 - 40.0 % [facility] MCH (RBC) [Entitic mass] 33.9 pg 26.0 - 34.0 pg [facility] MCHC (RBC) [Mass/Vol] 33.4 % 32.0 - 36.0 % [facility] MCV (RBC) [Entitic vol] 101.4 fL High 80.0 - 98.0 fL [facility] Monocytes (Bld) [#/Vol] 0.6 10*3/uL 0.0 - 0.8 10*3/uL [facility] Monocytes/100 WBC (Bld) 7.7 % 2.0 - 10.0 % [facility] Neutrophils (Bld) [#/Vol] 5.4 10*3/uL 1.8 - 7.0 10*3/uL [facility] Neutrophils/100 WBC (Bld) 69.0 % 40.0 - 80.0 % [facility] Nucleated RBC/100 WBC (Bld) [Ratio] 0.0 % [facility] Platelet mean volume (Bld) [Entitic vol] 7.2 fL Low 7.4 - 12.4 fL [facility] Platelets (Bld) [#/Vol] 201 10*3/uL 140 - 440 10*3/uL [facility] RBC (Bld) [#/Vol] 2.88 10*6/uL Low 3.8 - 5.20 10*6/uL [facility] WBC (Bld) [#/Vol] 7.8 10*3/uL 3.6 - 10.7 10*3/uL [facility] Respiratory culture and Stai nOrdered By: Tobi Lim on 10-13-2022 Bacteria identified Aer cx Nom (Lower resp) Few respiratory harrison present. [facility] XR Chest 2 Viewson 3 See findings. Report Dictated on Electronically Signed By: Xavier Bender MD Electronically Signed Date/Time: 10/13/2022 2:02 PM EDT [facility] Patient Name: KATHERINE SIMON : 1935 Exam Date/Time: 10/13/2022 13:24 Procedure: XR CHEST 2 VIEWS Ordering Provider: TOBAR JONATHAN Reason For Exam: DYSPNEA CHEST: CLINICAL INDICATION: Dyspnea TECHNIQUE: PA and Lateral COMPARISON: 10/11/2022 Chest radiograph FINDINGS: Status post median sternotomy. Mediastinum: The cardiomediastinal silhouette is within normal limits. Atherosclerotic calcifications are seen at the aortic knob. Lungs: Bibasilar opacities likely resenting moderate to large layering pleural effusions with associated atelectasis, superimposed infiltrate not excluded. Increased interstitial lung markings bilaterally likely representing chronic lung changes. No pneumothorax. Osseous structures: No acute osseous abnormality. [facility] Xvaier Bender MD - 10/13/2022 Patient Name: KATHERINE JUDGE : 1935 Exam Date/Time: 10/13/2022 13:24 Procedure: XR CHEST 2 VIEWS Ordering Provider: TOBAR JONATHAN Reason For Exam: DYSPNEA CHEST: CLINICAL INDICATION: Dyspnea TECHNIQUE: PA and Lateral COMPARISON: 10/11/2022 Chest radiograph FINDINGS: Status post median sternotomy. Mediastinum: The cardiomediastinal silhouette is within normal limits. Atherosclerotic calcifications are seen at the aortic knob. Lungs: Bibasilar opacities likely resenting moderate to large layering pleural effusions with associated atelectasis, superimposed infiltrate not excluded. Increased interstitial lung markings bilaterally likely representing chronic lung changes. No pneumothorax. Osseous structures: No acute osseous abnormality. IMPRESSION: See findings. Report Dictated on Electronically Signed By: Xavier Bender MD Electronically Signed Date/Time: 10/13/2022 2:02 PM EDT [facility] [employer] Radiology Study observation (narrative) [employer] XR Chest 2 ViewsOrdered By: Xavier Bender on 10-13-2022 [employer] Work Phone: Basic metabolic 1998 panelon 10-12-2022 Anion gap [Moles/Vol] 6 mmol/L 3 - 13 mmol/L [facility] [employer] Calcium [Mass/Vol] 7.9 mg/dL Low 8.4 - 10. 4 mg/dL [facility] [employer] Chloride [Moles/Vol] 110 mmol/L High 98 - 10 7 mmol/L [facility] [employer] CO2 [Moles/Vol] 25 mmol/L 22 - 30 mmol/L [facility] [employer] Creatinine [Mass/Vol] 0.97 mg/dL 0.52 - 1.04 mg/dL [facility] [employer] GFR/1.73 sq M.predicted MDRD (S/P/Bld) [Vol rate/Area] 57.0 mL/min/{1.73_m2} Low - PINF [facility] [employer] Comment on above: Calculation based on the Chronic Kidney Disease Epidemiology Collaboration (CKD-EPI) equation refit without adjustment for race Glucose [Mass/Vol] 107 mg/dL High 70 - 100 mg/dL [facility] Interpretation and review of laboratory results Abnormal [facility] [employer] Potassium [Moles/Vol] 4.4 mmol/L 3.5 - 5.1 mmol/L [facility] [employer] Sodium [Moles/Vol] 141 mmol/L 135 - 145 mmol/L [facility] [employer] Urea nitrogen [Mass/Vol] 21 mg/dL High 7 - 17 mg/dL [facility] [employer] [facility] [employer] CBC W Auto Differential pane l (Bld)Ordered By: Sylvain Rogers on 10-12-2022 Basophils (Bld) [#/Vol] 0.0 10*3/uL 0.0 - 0.2 10*3/uL [facility] Basophils/100 WBC (Bld) 0.4 % 0.0 - 2.0 % [facility] Eosinophils (Bld) [#/Vol] 0.0 10*3/uL 0.0 - 0.5 10*3/uL [facility] Eosinophils/100 WBC (Bld) 0.1 % Low 1.0 - 6.0 % [facility] Erythrocyte distribution width (RBC) [Ratio] 13.7 % 11.5 - 14.5 % [facility] Hematocrit (Bld) [Volume fraction] 30.0 % Low 35.0 - 47.0 % [facility] Hemoglobin (Bld) [Mass/Vol] 10.1 g/dL Low 11.7 - 16.0 g/dL [facility] Interpretation and review of laboratory results Abnormal [facility] Lymphocytes (Bld) [#/Vol] 1.5 10*3/uL 1.0 - 4.3 10*3/uL [facility] Lymphocytes/100 WBC (Bld) 11.9 % Low 20.0 - 40.0 % [facility] MCH (RBC) [Entitic mass] 34.7 pg High 26.0 - 34.0 pg [facility] MCHC (RBC) [Mass/Vol] 33.7 % 32.0 - 36.0 % [facility] MCV (RBC) [Entitic vol] 103.0 fL High 80.0 - 98.0 fL [facility] Monocytes (Bld) [#/Vol] 0.9 10*3/uL High 0.0 - 0.8 10*3/uL [facility] Monocytes/100 WBC (Bld) 6.9 % 2.0 - 10.0 % [facility] Neutrophils (Bld) [#/Vol] 9.9 10*3/uL High 1.8 - 7.0 10*3/uL [facility] Neutrophils/100 WBC (Bld) 80.7 % High 40.0 - 80.0 % [facility] Nucleated RBC/100 WBC (Bld) [Ratio] 0.0 % [facility] [employer] Platelet mean volume (Bld) [Entitic vol] 7.1 fL Low 7.4 - 12.4 fL [facility] Platelets (Bld) [#/Vol] 205 10*3/uL 140 - 440 10*3/uL [facility] RBC (Bld) [#/Vol] 2.91 10*6/uL Low 3.8 - 5.20 10*6/uL [facility] WBC (Bld) [#/Vol] 12.3 10*3/uL High 3.6 - 10.7 10*3/uL [facility] Consulton 10-12-2022 Consult Vancomycin therapy h as been discontinued by Dr. Tobar on 10-12-22. Thank you for the consult. Pharmacy signing off for vancomycin dosing. Marilu Whitaker, [facility], Date: 10/12/22 Time: 12:14 PM Normal [facility] Progress Noteon 10-12-2022 Progress Note Physical Therapy Facility/Department: [address] Physical Therapy Initial Evaluation NAME: Katherine Judge : 1935 Date of Service: 10/12/2022 Discharge Recommendations: Retirement Facility, Continue to assess pending progress PT Equipment Recommendations Equipment Needed: (TBD as pt progresses) Assessment Requires PT Follow-Up: Yes Assessment: Pt is an 87 y.o. female admitted 10/10 with worsening abdominal pain. Found to have constipation. Pt was previously independent with functional mobility without AD, pt reports she has been carrying around SPC but does not use. Pt is currently requiring SBA to mod A for bed mobility, min A to CGA for functional transfers and min A for x1 forward/retro step with FWW. Pt lethargic throughout session but improves with mobility, RN reports medicated for pain prior to session. Pt is currently limited by fatigue and is at an increased risk for falls. Pt will benefit from acute skilled PT to address current deficits. Recommend SNF pending progress. Performance Deficits/Impairments: Decreased functional mobility , Decreased endurance, Decreased balance, Decreased strength, Decreased posture Activity Tolerance Comment: Pt limited by lethargy Decision Making: Medium Complexity History: Pt admitted 10/10 with worsening abdominal pain. Found to have constipation Exam: AM-PAC Clinical Presentation: Pt admitted 10/10 with worsening abdominal pain. Found to have constipation. Pt has significant past medical history as indicated impacting pt's current clinical presentation. Pt is currently requiring SBA to mod A for functional mobility. Recommend SNF pending progress. Barriers to Learning: None Barriers to Learning: None Activity Tolerance Activity Tolerance: Patient limited by fatigue, Treatment limited secondary to medical complications (free text) Activity Tolerance Comments: Limited by lethargy Patient Diagnosis(es): The primary encounter diagnosis was Proctocolitis. Diagnoses of Abdominal pain, generalized and Constipation, unspecified constipation type were also pertinent to this visit. has a past medical history of CAD (coronary artery disease), Hypothyroidism, and Ischemic colitis (HCC). has a past surgical history that includes Other surgical history. Restrictions Restrictions/Precautions Restrictions/Precautions: General Precautions, Fall Risk Required Braces or Orthoses?: No Vision/Hearing Vision: Within Functional Limits (appears) Hearing: Functional/adequate for paticipation in therapy Cognition/Orientation Overall Cognitive Status: Exceptions Arousal/Alertness: Appropriate responses to stimuli Following Commands: Follows one step commands with increased time, Follows one step commands with repetition Problem Solving: Assistance required to generate solutions, Assistance required to implement solutions, Assistance required to identify errors made, Assistance required to correct errors made Initiation: Requires cues for some Sequencing: Requires cues for some Cognition Comment: Pt lethargic throughout, improving with mobility. RN reports providing pain medication prior to evaluation. Overall Orientation Status: Impaired Orientation Level: Oriented to place, Oriented to person (limited questioning due to lethargic) Subjective General Chart Reviewed: Yes Patient Assessed for Rehabilitation Services: Yes Additional Pertinent Hx: Pt admitted 10/10 with worsening abdominal pain. Found to have constipation Family / Caregiver Present: No Follows Commands: Within Functional Limits General Comment Comments: Per RN okay for therapy Subjective Subjective: Pt lethargic upon arrival, wakes to name. Increased arousal with mobility. Pt states I want to get up Patient Stated Goal: To go home Pain Assessment Pain Assessment: No/denies pain Social/Functional History Social/Functional History Lives With: Spouse Type of Home: Independent living Home Layout: One level Home Access: Level entry Bathroom Shower/Tub: Tub/Shower unit Bathroom Equipment: Shower chair Home Equipment: Rollator, Cane ADL Assistance: Independent Homemaking Assistance: Independent Ambulation Assistance: Independent With device?: No Transfer Assistance: Independent Additional Comments: Limited social functional gathered due to lethargy. Improved at end of session. Pt reports she has been carrying around SPC since fall, but reports independent with no AD. Objective Observation/Palpation Posture: Fair Observation: thoracic kyphosis. NC intact, PIV intact Gross Assessment: Yes Strength: Generally decreased, functional (noted with functional mobility) Bed mobility Rolling to Left: Stand by assistance Rolling to Right: Stand by assistance Supine to Sit: Moderate assistance Sit to Supine: Moderate assistance Scooting: Moderate assistance Comment: Pt requires mod A x1 for supine<->sit, sc (more content not included)... 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 Obtain actual standing scale weight for most accurate anthropometric data RDN to continue to monitor weekly: fluid accumulation, weight, skin integrity, trends in lab values, tolerance of diet advancement and ONS, improvement in clinical status, discharge planning. Malnutrition Assessment: Malnutrition Status: At risk for malnutrition (Comment) (monitor diet advancement and tolerance) Context: Acute Illness Findings of the 6 clinical characteristics of malnutrition: Energy Intake: Mild decrease in energy intake (Comment) (NPO/CL x 3 days) Weight Loss: Unable to assess (reports UBW is 110#, noted admit weight 108.8#) Body Fat Loss: Unable to assess Muscle Mass Loss: Unable to assess Fluid Accumulation: No significant fluid accumulation Patient Financial Specialist Strength: Not Performed Nutrition Assessment: 87 year old woman with PMHx: CAD, colitis, hypothyroidism. Presented to [facility] with worsening abdominal pain (achy and crampy). Reports decreased bowel movements and history of bowel obstructions. Significant labs on admit: WBC(16.9), BUN(22). Imaging showed stool burden in the distal colon near the rectosigmoid junction with some associated rectosigmoid wall thickening. +bm 10/10/22. GI consulted and recommended serial KUBs, liquid diet with ADAT, and aggressive bowel regimen. Continues on IVF and liquid diet this morning. Pending PNA r/o, awaiting sputum cultures. Patient resting in bed at time of assessment, bed scale weight obtained: 80.7 kg- which is in no way accurate. Patient reports poor PO intake for the past few days, diet advanced to full liquid just prior to RDN assessment. 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 Estimates UBW to be 110#, but believes she is down to 104-106#. Preferences obtained, called in Full Liquid lunch. Agreeable to Vanilla or strawberry Ensure, deferred NFPE at this time, as patient reports she is sore from MD examinations this morning Estimated Daily Nutrient Needs: Energy Requirements Based On: Kcal/kg Weight Used for Energy Requirements: Admission Weight for Energy Calculation (kg): 49.4 kg Total Energy Requirements (kcals/day): 2869-1528 (30-35 kcal/kg CBW) Weight Used for Protein Requirements: Admission Weight in Kg Used for Protein Requirements: 49.4 kg Estimated Total Protein (g/day): 49-74 (1.0-1.5 g protein/kg CBW) Estimated Daily Total Fluid (ml/day): per MD or ~1605 mL/day Nutrition Related Findings: No skin break down or edema noted. Moustapha score=18. +I/O balance. Meds and labs reviewed. NPO/CL x3 days Wound Type: None Current Nutrition Therapies: Adult diet Full liquid Current Oral Intake Average Meal Intake: Unable to assess Average Supplements Intake: None Ordered Anthropometric Measures: Height: 152.4 cm (5') Current Body Weight: 47.6 kg (105 lb) Weight Source: Stated Admission Body Weight: 47.4 kg (104 lb 9.6 oz) (bed) Usual Body Weight: 49.9 kg (110 lb) (10/07/22 --> limited weight history per EMR. reports 110# UBW) % Weight Change (Calculated): -4.5 [place] Body Weight (lbs) (Calculated): 100 lbs [place] Body Weight (Kg) (Calculated): 45 kg % [place] Body Weight (Calculated): 105 % BMI (kg/m2) (Calculated): 20.5 Weight Adjustment For: No Adjustment BMI Categories: Underweight (BMI less than 22) age over 65 Nutrition Diagnosis: Inadequate protein-energy intake related to acute injury/trauma, altered GI function as evidenced by constipation Nutrition Interventions: Nutrition Education/Counseling: Education not indicated Coordination of Nutrition Care: Continue to monitor while inpatient Plan of Care discussed with: patient Goals: Goals: Initiate PO diet, within 2 days Nutrition Monitoring and Evaluation: Behavioral-Environmental Outcomes: None Identified Food/Nutrient Intake Outcomes: Diet Advancement/Tolerance Physical Signs/Symptoms Outcomes: Biochemical Data, Chewing or Swallowing, GI Status, Fluid Status or Edema, Nausea or Vomiting, Weight, Skin, Meal Time Behavior, Hemodynamic Status Discharge Planning: Too soon to determine Kiana Fernando Wagner, RDN, LDN, Contact: [phone] Normal [facility] Progress Note Pharmacy Vancomycin Consult Follow-Up Note Non-FIXED INCOME DIRECTOR Patients Current Dosinmg q24h CREATININE Date Value Ref Range Status 10/12/2022 0.97 0.52 - 1.04 mg/dL Final 10/22/2020 0.69 0.52 - 1.25 mg/dL Final UREA NITROGEN Date Value Ref Range Status 10/12/2022 21 (H) 7 - 17 mg/dL Final Auto WBC Date Value Ref Range Status 10/12/2022 12.3 (H) 3.6 - 10.7 10*3/uL Final Ht Readings from Last 1 Encounters: 10/10/22 1.524 m (5') Wt Readings from Last 1 Encounters: 10/12/22 49.4 kg (108 lb 12.8 oz) Body mass index is Body mass index is 21.25 kg/m?. Calculated AUC: 658 mg/L.hr Assessment/Plan: Calculated AUC is 658 mg/L.hr, supratherapeutic since Scr has increased since yesterday. Will decrease dose to 750mg q24hr and check random level with am labs. Normal [facility] CBC W Auto Differential pane l (Bld)Ordered By: Juvenal Lei on 10-11-2022 Basophils (Bld) [#/Vol] 0.0 10*3/uL 0.0 - 0.2 10*3/uL [facility] Basophils/100 WBC (Bld) 0.2 % 0.0 - 2.0 % [facility] Eosinophils (Bld) [#/Vol] 0.0 10*3/uL 0.0 - 0.5 10*3/uL [facility] Eosinophils/100 WBC (Bld) 0.3 % Low 1.0 - 6.0 % [facility] Erythrocyte distribution width (RBC) [Ratio] 14.1 % 11.5 - 14.5 % [facility] Hematocrit (Bld) [Volume fraction] 36.6 % 35.0 - 47.0 % [facility] Hemoglobin (Bld) [Mass/Vol] 11.8 g/dL 11.7 - 16.0 g/dL [facility] Interpretation and review of laboratory results Abnormal [facility] Lymphocytes (Bld) [#/Vol] 1.4 10*3/uL 1.0 - 4.3 10*3/uL [facility] Lymphocytes/100 WBC (Bld) 9.1 % Low 20.0 - 40.0 % [facility] MCH (RBC) [Entitic mass] 32.9 pg 26.0 - 34.0 pg [facility] MCHC (RBC) [Mass/Vol] 32.2 % 32.0 - 36.0 % [facility] MCV (RBC) [Entitic vol] 102.1 fL High 80.0 - 98.0 fL [facility] Monocytes (Bld) [#/Vol] 1.0 10*3/uL High 0.0 - 0.8 10*3/uL [facility] Monocytes/100 WBC (Bld) 6.8 % 2.0 - 10.0 % [facility] Neutrophils (Bld) [#/Vol] 12.7 10*3/uL High 1.8 - 7.0 10*3/uL [facility] Neutrophils/100 WBC (Bld) 83.6 % High 40.0 - 80.0 % [facility] Nucleated RBC/100 WBC (Bld) [Ratio] 0.0 % [facility] Platelet mean volume (Bld) [Entitic vol] 7.1 fL Low 7.4 - 12.4 fL [facility] Platelets (Bld) [#/Vol] 195 10*3/uL 140 - 440 10*3/uL [facility] RBC (Bld) [#/Vol] 3.59 10*6/uL Low 3.8 - 5.20 10*6/uL [facility] WBC (Bld) [#/Vol] 15.1 10*3/uL High 3.6 - 10.7 10*3/uL [facility] Comprehensive metabolic 1998 panelon 10-11-2022 Albumin [Mass/Vol] 3.1 g/dL Low 3.5 - 5.0 g/dL [facility] [employer] ALP [Catalytic activity/Vol] 85 U/L 38 - 126 U/L [facility] [employer] ALT [Catalytic activity/Vol] 12 U/L 0 - 34 U/L [facility] [employer] Anion gap [Moles/Vol] 4 mmol/L 3 - 13 mmol/L [facility] AST [Catalytic activity/Vol] 21 U/L 15 - 46 U/L [facility] Bilirubin [Mass/Vol] 0.8 mg/dL 0.2 - 1 .3 mg/dL [facility] [employer] Calcium [Mass/Vol] 8.2 mg/dL Low 8.4 - 10. 4 mg/dL [facility] Chloride [Moles/Vol] 107 mmol/L 98 - 10 7 mmol/L [facility] CO2 [Moles/Vol] 28 mmol/L 22 - 30 mmol/L [facility] Creatinine [Mass/Vol] 0.72 mg/dL 0.52 - 1.04 mg/dL [facility] GFR/1.73 sq M.predicted MDRD (S/P/Bld) [Vol rate/Area] 81.5 mL/min/{1.73_m2} - PINF [facility] Comment on above: Calculation based on the Chronic Kidney Disease Epidemiology Collaboration (CKD-EPI) equation refit without adjustment for race Glucose [Mass/Vol] 86 mg/dL 70 - 100 mg/dL [facility] Interpretation and review of laboratory results Abnormal [facility] Potassium [Moles/Vol] 4.0 mmol/L 3.5 - 5.1 mmol/L [facility] Protein [Mass/Vol] 6.0 g/dL Low 6.3 - 8.2 g/dL [facility] Sodium [Moles/Vol] 140 mmol/L 135 - 145 mmol/L [facility] Urea nitrogen [Mass/Vol] 17 mg/dL 7 - 17 mg/dL [facility] [employer] ECG 12 leadOrdered By: Gomez Cooney on 10-11-2022 Heart rate 107 /min bpm [facility] [employer] Work Phone: P [place] 17 degrees [facility] [employer] Work Phone: DE Interval 134 ms [employer] Work Phone: QRS [place] 122 degrees [employer] Work Phone: QRSD Interval 150 ms [employer] Work Phone: QT Interval 391 ms [employer] Work Phone: QTC Interval 506 ms [employer] Work Phone: T Wave [place] -42 degrees [employer] Work Phone: [employer] Work Phone: ECG 12 leadon 10-11-2022 Sinus tachycardia ra te 107 Paired ventricular premature complexes RBBB and LPFB Lateral ST depression QT prolongation No previous ECG available for comparison Electronically Signed On 10-11-2022 10:41:31 EDT by Martín Cooney CV Martín Haque, DO - 10/11/2022 IMPRESSION: Sinus tachycardia rate 107 Paired ventricular premature complexes RBBB and LPFB Lateral ST depression QT prolongation No previous ECG available for comparison Electronically Signed On 10-11-2022 10:41:31 EDT by Martín Cooney [facility] ECG 12-LEADon 10-11-2022 ECG 12-LEAD IMPRESSION: Sinus tachycardia rate 107 Paired ventricular premature complexes RBBB and LPFB Lateral ST depression QT prolongation No previous ECG available for comparison Electronically Signed On 10-11-2022 10:41:31 EDT by Martín Cooney Normal [facility] IDNon 10-11-2022 IDN The patient is Moder ately Stable - Low risk of patient condition declining or worsening The patient's goals for the shift include get rid of this pain The clinical goals for the shift include maintain safety, manage pain Over the shift, the patient did not make progress toward the following goals. Barriers to progression include constipation. Recommendations to address these barriers include encourage fluids . Normal [facility] Legionella and Streptococcus Urine AntigenOrdered By: Vaibhav Londono on 10-11-2022 Interpretation and review of laboratory results Normal [facility] Legionella pneumophila Ag Not detected Not Detected [facility] Streptococcus pneumoniae Ag Not detected Not Detected [facility] Methodology: Lateral flow enzyme immunoassay This assay is approved for detection of antigens to Streptococcus pneumoniae and Legionella pneumophila serogroup 1; however, other L. pneumophila serogroups may also be detected. [facility] Procalcitonin Teston 023 Procalcitonin [Mass/Vol] 0.14 ng/mL High 0.00 - 0.09 ng/mL [facility] Procalcitonin [Mass/Vol]on 0 10-11-2022 Interpretation and review of laboratory results Abnormal [facility] PCT <0.50 = Low risk of severe sepsis and/or septic shock. PCT >2.00 = High risk of severe sepsis and/or septic shock. [facility] Progress Noteon 10-11-2022 Progress Note Attempted two IV sta rts, call FIXED INCOME DIRECTOR to place for antibiotics. ] Normal [facility] Progress Note Pharmacy Vancomycin Consult Follow-Up Note Non-FIXED INCOME DIRECTOR Patients Current Dosinmg x1 -> 750mg q24hr CREATININE Date Value Ref Range Status 10/11/2022 0.72 0.52 - 1.04 mg/dL Final 10/22/2020 0.69 0.52 - 1.25 mg/dL Final UREA NITROGEN Date Value Ref Range Status 10/11/2022 17 7 - 17 mg/dL Final Auto WBC Date Value Ref Range Status 10/11/2022 15.1 (H) 3.6 - 10.7 10*3/uL Final Ht Readings from Last 1 Encounters: 10/10/22 1.524 m (5') Wt Readings from Last 1 Encounters: 10/10/22 47.4 kg (104 lb 9.6 oz) Body mass index is Body mass index is 20.43 kg/m?. Random: 12.5 mcg/ml drawn 10/11 at 0331 Calculated AUC: 398 mg/L.hr Assessment/Plan: Calculated AUC is 398 mg/L.hr, based on regimen of 1000mg LD -> 750mg q24hr. Renal function improved. Will increase dose to 1000mg q24hr based on pAUC of 521 and continue to follow. Normal [facility] Respiratory pathogens DNA an d RNA panel ALTHEA+non-probe (Lower resp)Ordered By: Fela Calvo on 10-11-2022 Acinetobacter baumannii complex Not detected Not Detected [facility] Adenovirus Not detected Not Detected [facility] Chlamydia pneumoniae Not detected Not Detected [facility] Enterobacter cloacae complex Not detected Not Detected [facility] Escherichia coli Not detected Not Detected [facility] FLUAV RNA LATHEA+non-probe Ql (Lower resp) Not detected Not Detected [facility] FLUBV RNA ALTHEA+non-probe Ql (Lower resp) Not detected Not Detected [facility] Haemophilus influenzae Not detected Not Detected [facility] Human Metapneumovirus Not detected Not Detected [facility] Human Rhinovirus/Enteroviru s Not detected Not Detected [facility] Interpretation and review of laboratory results Normal [facility] Klebsiella (Enterobacter) aerogenes Not detected Not Detected [facility] Klebsiella oxytoca Not detected Not Detected [facility] Klebsiella pneumoniae Not detected Not Detected [facility] Legionella pneumophila Not detected Not Detected [facility] Moraxella catarrhalis Not detected Not Detected [facility] Mycoplasma pneumoniae Not detected Not Detected [facility] Parainfluenza virus Not detected Not Detected [facility] Proteus spp Not detected Not Detected [facility] Pseudomonas aeruginosa Not detected Not Detected [facility] RSV RNA ALTHEA+probe Ql (Resp) Not detected Not Detected [facility] S. agalactiae Org specific cx Ql (Vag fld) Not detected Not Detected [facility] SARS-CoV-2 (COVID-19) RNA ALTHEA+probe Ql (Unsp spec) Not detected Not Detected [facility] SARS-CoV-2 (COVID-19) RNA ALTHEA+probe Ql (Unsp spec) Methodology: Multiplex PCR This panel does not test for SARS-CoV-2 (Covid-19). The following antimicrobial resistance gene is reported if the appropriate organism is detected: mecA. The following antimicrobial resistance genes are reported if detected and the appropriate organisms are detected: CTX-M, IMP, KPC, NDM, OXA-48-like, and VIM. [facility] Serratia marcescens Not detected Not Detected [facility] Staphylococcus aureus Not detected Not Detected [facility] Streptococcus pneumoniae Not detected Not Detected [facility] Streptococcus pyogenes Not detected Not Detected [facility] Vancomycin, randomon 023 Interpretation and review of laboratory results Abnormal [facility] Vancomycin [Mass/Vol] 12.5 ug/mL Low 15.0 - 20.0 ug/mL [facility] XR CHEST 1 VIEWon 10-11-2022 XR CHEST 1 VIEW Patient Name: KATHERINE SIMON : 1935 Exam Date/Time: 10/11/2022 08:49 Procedure: XR CHEST 1 VIEW Ordering Provider: LUCIO GREGORY Reason For Exam: COUGH PORTABLE CHEST X-RAY CLINICAL INDICATION: COUGH A portable frontal view of the chest was obtained. COMPARISON: None FINDINGS: Heart size is within normal limits. Sternotomy wires are noted. There is coarsening of the interstitial lung markings, largely chronic. There is scattered atelectasis or scarring within the lung bases. No focal consolidation is seen. There is no large pleural effusion or pneumothorax. There are degenerative changes of the spine and shoulders. IMPRESSION: Chronic interstitial changes with bilateral basilar atelectasis or scarring. No focal consolidations digitally seen. There is a very large hiatal hernia noted on a CT from 10/10/2022, difficult to visualize on this single film. Report Dictated on Electronically Signed By: Ranjeet Huerta MD Electronically Signed Date/Time: 10/11/2022 11:27 AM EDT Pt c/o sob [facility] XR Chest Single viewon 10-11 Chronic interstitial changes with bilateral basilar atelectasis or scarring. No focal consolidations digitally seen. There is a very large hiatal hernia noted on a CT from 10/10/2022, difficult to visualize on this single film. Report Dictated on Electronically Signed By: Ranjeet Huerta MD Electronically Signed Date/Time: 10/11/2022 11:27 AM EDT [facility] Patient Name: KATHERINE SIMON : 1935 Exam Date/Time: 10/11/2022 08:49 Procedure: XR CHEST 1 VIEW Ordering Provider: LUCIO GREGORY Reason For Exam: COUGH PORTABLE CHEST X-RAY CLINICAL INDICATION: COUGH A portable frontal view of the chest was obtained. COMPARISON: None FINDINGS: Heart size is within normal limits. Sternotomy wires are noted. There is coarsening of the interstitial lung markings, largely chronic. There is scattered atelectasis or scarring within the lung bases. No focal consolidation is seen. There is no large pleural effusion or pneumothorax. There are degenerative changes of the spine and shoulders. [facility] Ranjeet Huerta MD - 10/11/2022 Patient Name: KATHERINE JUDGE : 1935 Exam Date/Time: 10/11/2022 08:49 Procedure: XR CHEST 1 VIEW Ordering Provider: LUCIO GREGORY Reason For Exam: COUGH PORTABLE CHEST X-RAY CLINICAL INDICATION: COUGH A portable frontal view of the chest was obtained. COMPARISON: None FINDINGS: Heart size is within normal limits. Sternotomy wires are noted. There is coarsening of the interstitial lung markings, largely chronic. There is scattered atelectasis or scarring within the lung bases. No focal consolidation is seen. There is no large pleural effusion or pneumothorax. There are degenerative changes of the spine and shoulders. IMPRESSION: Chronic interstitial changes with bilateral basilar atelectasis or scarring. No focal consolidations digitally seen. There is a very large hiatal hernia noted on a CT from 10/10/2022, difficult to visualize on this single film. Report Dictated on Electronically Signed By: Ranjeet Huerta MD Electronically Signed Date/Time: 10/11/2022 11:27 AM EDT [facility] Radiology Study observation (narrative) [facility] XR Chest Single viewOrdered By: Ranjeet Huerta on 10-11-2022 [employer] Work Phone: Basic metabolic 1998 panelon 10-10-2022 Anion gap [Moles/Vol] 8 mmol/L 3 - 13 mmol/L [employer] Calcium [Mass/Vol] 8.9 mg/dL 8.4 - 10. 4 mg/dL [employer] Chloride [Moles/Vol] 103 mmol/L 98 - 10 7 mmol/L [employer] CO2 [Moles/Vol] 30 mmol/L 22 - 30 mmol/L [employer] Creatinine [Mass/Vol] 0.94 mg/dL 0.52 - 1.04 mg/dL [employer] GFR/1.73 sq M.predicted MDRD (S/P/Bld) [Vol rate/Area] 59.2 mL/min/{1.73_m2} Low - PINF [employer] Comment on above: Calculation based on the Chronic Kidney Disease Epidemiology Collaboration (CKD-EPI) equation refit without adjustment for race Glucose [Mass/Vol] 110 mg/dL High 70 - 100 mg/dL [facility] Potassium [Moles/Vol] 4.1 mmol/L 3.5 - 5.1 mmol/L [facility] Sodium [Moles/Vol] 142 mmol/L 135 - 145 mmol/L [facility] Urea nitrogen [Mass/Vol] 22 mg/dL High 7 - 17 mg/dL [facility] CBC W Auto Differential pane l (Bld)Ordered By: Rivka Tipton on 10-10-2022 Basophils (Bld) [#/Vol] 0.0 10*3/uL 0.0 - 0.2 10*3/uL [facility] Basophils/100 WBC (Bld) 0.1 % 0.0 - 2.0 % [facility] Eosinophils (Bld) [#/Vol] 0.0 10*3/uL 0.0 - 0.5 10*3/uL [facility] Eosinophils/100 WBC (Bld) 0.1 % Low 1.0 - 6.0 % [facility] Erythrocyte distribution width (RBC) [Ratio] 14.2 % 11.5 - 14.5 % [facility] Hematocrit (Bld) [Volume fraction] 37.3 % 35.0 - 47.0 % [facility] Hemoglobin (Bld) [Mass/Vol] 12.6 g/dL 11.7 - 16.0 g/dL [facility] Interpretation and review of laboratory results Abnormal [facility] Lymphocytes (Bld) [#/Vol] 1.3 10*3/uL 1.0 - 4.3 10*3/uL [facility] Lymphocytes/100 WBC (Bld) 7.6 % Low 20.0 - 40.0 % [facility] MCH (RBC) [Entitic mass] 34.5 pg High 26.0 - 34.0 pg [facility] MCHC (RBC) [Mass/Vol] 33.9 % 32.0 - 36.0 % [facility] MCV (RBC) [Entitic vol] 102.0 fL High 80.0 - 98.0 fL [facility] Monocytes (Bld) [#/Vol] 1.0 10*3/uL High 0.0 - 0.8 10*3/uL [facility] Monocytes/100 WBC (Bld) 5.8 % 2.0 - 10.0 % [facility] Neutrophils (Bld) [#/Vol] 14.6 10*3/uL High 1.8 - 7.0 10*3/uL [facility] Neutrophils/100 WBC (Bld) 86.4 % High 40.0 - 80.0 % [facility] Nucleated RBC/100 WBC (Bld) [Ratio] 0.0 % [facility] Platelet mean volume (Bld) [Entitic vol] 7.2 fL Low 7.4 - 12.4 fL [facility] Platelets (Bld) [#/Vol] 217 10*3/uL 140 - 440 10*3/uL [facility] RBC (Bld) [#/Vol] 3.65 10*6/uL Low 3.8 - 5.20 10*6/uL [facility] WBC (Bld) [#/Vol] 16.9 10*3/uL High 3.6 - 10.7 10*3/uL [facility] COVID-19, Flu A/B, and RSV C omboon 10-10-2022 FLUAV RNA ALTHEA+probe Ql (Resp) Not detected Not Detected [facility] FLUBV RNA ALTHEA+probe Ql (Resp) Not detected Not Detected [facility] Interpretation and review of laboratory results Normal [facility] RSV RNA ALTHEA+probe Ql (Resp) Not detected Not Detected [facility] SARS-CoV-2 (COVID-19) RNA ALTHEA+probe Ql (Resp) Not detected Not Detected [facility] SARS-CoV-2 (COVID-19) RNA ALTHEA+probe Ql (Unsp spec) Methodology: real-time, RT-PCR The SARS-CoV-2, Flu A/B, and RSV Combo assay is intended for in vitro diagnostic use under the FDA Emergency Use Authorization (EUA). This test has not been FDA cleared or approved. In compliance with this authorization, please visit www.fda.gov/media/444378/messi nload or www.fda.gov/media/527872/messi nload to access the applicable information sheets. [facility] CT ABDOMEN PELVIS W CONTRAST on 10-10-2022 CT ABDOMEN PELVIS W CONTRAST Patient Name: KATHERINE JUDGE : 1935 Exam Date/Time: 10/10/2022 16:52 Procedure: CT ABDOMEN PELVIS W CONTRAST Ordering Provider: ONEAL RACHEL Reason For Exam: Nausea/vomiting CLINICAL HISTORY: Nausea/vomiting COMPARISON: 10/13/2020 Technique: Axial CT images were obtained of the abdomen and pelvis after the uneventful IV administration of 75 mL of Isovue 370 IV contrast. Images were reformatted in coronal and sagittal projections. Dose reduction was employed with automated exposure control. FINDINGS: Chest base: Partially visualized large hiatal hernia. Bibasilar atelectasis in the lungs. Liver/Biliary system: No focal hepatic masses. Cholelithiasis with mild intrahepatic and extrahepatic biliary dilatation. The common bile duct measures up to 1 cm in diameter, similar to 2020. Spleen: Not enlarged. Pancreas: Pancreatic tail extends into the hiatal hernia sac. Adrenal glands: No significant abnormality. Kidneys: No hydronephrosis or renal calculi are seen. 1.6 cm fluid attenuation cyst arising from the posterior right mid kidney. Bowel: Large stool burden in the distal colon, particularly near the rectosigmoid junction with associated rectosigmoid wall thickening. Postsurgical changes of the proximal colon. There is diastases of the rectus muscles with partial extension of the transverse colon into a wide necked ventral hernia. Mesentery/Intraperitoneum: No intraperitoneal free fluid or air is seen. Mesentery is normal in appearance. Lymph nodes: A few borderline enlarged lymph nodes are seen along the rectosigmoid junction. Vasculature: The abdominal aorta is normal in caliber with extensive atherosclerotic calcification. Pelvic organs: No masses or other significant abnormalities seen. Soft tissues and Osseous structures: No evidence of fracture. No suspicious osseous lesions. Multilevel degenerative changes and unchanged chronic compression deformities of the lower thoracic and lumbar spine with areas of moderate central canal and neural foraminal narrowing. IMPRESSION: 1. Large stool burden in the distal colon, particularly near the rectosigmoid junction with associated rectosigmoid wall thickening. These findings may relate to constipation with associated proctocolitis. Follow-up colonoscopy recommended to exclude underlying neoplasm if not recently performed. 2. A few borderline enlarged lymph nodes along the rectosigmoid junction are nonspecific, may be reactive. 3.Cholelithiasis with mild intrahepatic and extrahepatic biliary dilatation, similar to 202. Consider correlation with laboratory evaluation for evidence of obstructive pathology. Report Dictated on Electronically Signed By: Jos Rizo DR Electronically Signed Date/Time: 10/10/2022 5:13 PM EDT Pt states since last night she had right sided abd pain that moved to the left side. Pt states today she started to cough as well. Normal [facility] CT Abdomen and Pelvis W cont rast Bryan 10-10-2022 1. Large stool burden in the distal colon, particularly near the rectosigmoid junction with associated rectosigmoid wall thickening. These findings may relate to constipation with associated proctocolitis. Follow-up colonoscopy recommended to exclude underlying neoplasm if not recently performed. 2. A few borderline enlarged lymph nodes along the rectosigmoid junction are nonspecific, may be reactive. 3.Cholelithiasis with mild intrahepatic and extrahepatic biliary dilatation, similar to 2020. Consider correlation with laboratory evaluation for evidence of obstructive pathology. Report Dictated on Electronically Signed By: Jos Rizo DR Electronically Signed Date/Time: 10/10/2022 5:13 PM EDT [facility] Patient Name: KATHERINE SIMON : 1935 Exam Date/Time: 10/10/2022 16:52 Procedure: CT ABDOMEN PELVIS W CONTRAST Ordering Provider: ONEAL RACHEL Reason For Exam: Nausea/vomiting CLINICAL HISTORY: Nausea/vomiting COMPARISON: 10/13/2020 Technique: Axial CT images were obtained of the abdomen and pelvis after the uneventful IV administration of 75 mL of Isovue 370 IV contrast. Images were reformatted in coronal and sagittal projections. Dose reduction was employed with automated exposure control. FINDINGS: Chest base: Partially visualized large hiatal hernia. Bibasilar atelectasis in the lungs. Liver/Biliary system: No focal hepatic masses. Cholelithiasis with mild intrahepatic and extrahepatic biliary dilatation. The common bile duct measures up to 1 cm in diameter, similar to 2020. Spleen: Not enlarged. Pancreas: Pancreatic tail extends into the hiatal hernia sac. Adrenal glands: No significant abnormality. Kidneys: No hydronephrosis or renal calculi are seen. 1.6 cm fluid attenuation cyst arising from the posterior right mid kidney. Bowel: Large stool burden in the distal colon, particularly near the rectosigmoid junction with associated rectosigmoid wall thickening. Postsurgical changes of the proximal colon. There is diastases of the rectus muscles with partial extension of the transverse colon into a wide necked ventral hernia. Mesentery/Intraperitoneum: No intraperitoneal free fluid or air is seen. Mesentery is normal in appearance. Lymph nodes: A few borderline enlarged lymph nodes are seen along the rectosigmoid junction. Vasculature: The abdominal aorta is normal in caliber with extensive atherosclerotic calcification. Pelvic organs: No masses or other significant abnormalities seen. Soft tissues and Osseous structures: No evidence of fracture. No suspicious osseous lesions. Multilevel degenerative changes and unchanged chronic compression deformities of the lower thoracic and lumbar spine with areas of moderate central canal and neural foraminal narrowing. [facility] Sallie, Jos Gaona MD - 10/10/2022 Patient Name: KATHERINE JUDGE : 1935 Exam Date/Time: 10/10/2022 16:52 Procedure: CT ABDOMEN PELVIS W CONTRAST Ordering Provider: ONEAL RACHEL Reason For Exam: Nausea/vomiting CLINICAL HISTORY: Nausea/vomiting COMPARISON: 10/13/2020 Technique: Axial CT images were obtained of the abdomen and pelvis after the uneventful IV administration of 75 mL of Isovue 370 IV contrast. Images were reformatted in coronal and sagittal projections. Dose reduction was employed with automated exposure control. FINDINGS: Chest base: Partially visualized large hiatal hernia. Bibasilar atelectasis in the lungs. Liver/Biliary system: No focal hepatic masses. Cholelithiasis with mild intrahepatic and extrahepatic biliary dilatation. The common bile duct measures up to 1 cm in diameter, similar to 2020. Spleen: Not enlarged. Pancreas: Pancreatic tail extends into the hiatal hernia sac. Adrenal glands: No significant abnormality. Kidneys: No hydronephrosis or renal calculi are seen. 1.6 cm fluid attenuation cyst arising from the posterior right mid kidney. Bowel: Large stool burden in the distal colon, particularly near the rectosigmoid junction with associated rectosigmoid wall thickening. Postsurgical changes of the proximal colon. There is diastases of the rectus muscles with partial extension of the transverse colon into a wide necked ventral hernia. Mesentery/Intraperitoneum: No intraperitoneal free fluid or air is seen. Mesentery is normal in appearance. Lymph nodes: A few borderline enlarged lymph nodes are seen along the rectosigmoid junction. Vasculature: The abdominal aorta is normal in caliber with extensive atherosclerotic calcification. Pelvic organs: No masses or other significant abnormalities seen. Soft tissues and Osseous structures: No evidence of fracture. No suspicious osseous lesions. Multilevel degenerative changes and unchanged chronic compression deformities of the lower thoracic and lumbar spine with areas of moderate central canal and neural foraminal narrowing. IMPRESSION: 1. Large stool burden in the distal colon, particularly near the rectosigmoid junction with associated rectosigmoid wall thickening. These findings may relate to constipation with associated proctocolitis. Follow-up colonoscopy recommended to exclude underlying neoplasm if not recently performed. 2. A few borderline enlarged lymph nodes along the rectosigmoid junction are nonspecific, may be reactive. 3.Cholelithiasis with mild intrahepatic and extrahepatic biliary dilatation, similar to 2020. Consider correlation with laboratory evaluation for evidence of obstructive pathology. Report Dictated on Electronically Signed By: Jos Rizo DR Electronically Signed Date/Time: 10/10/2022 5:13 PM EDT [employer] [facility] Study observation (narrative) [employer] CT Abdomen and Pelvis W cont rast IVOrdered By: Jos Rizo on 10-10-2022 [employer] Work Phone: Consulton 10-10-2022 Consult Pharmacy Note Vancomycin Consult Non-FIXED INCOME DIRECTOR Katherine Judge is a 87 y.o. year old female ordered vancomycin for IAI; consult from Dr. Lucio to manage therapy. 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 Gout 10/14/2020 Fish allergy, Cephalexin, Clarithromycin, Clindamycin, Doxazosin, Erythromycin base, Eszopiclone, Lorazepam, Nsaids, Penicillins, Rofecoxib, Salicylates, Temazepam, Tetracyclines & related, Trazodone, and Lincomycin CREATININE Date Value Ref Range Status 10/10/2022 0.94 0.52 - 1.04 mg/dL Final 10/22/2020 0.69 0.52 - 1.25 mg/dL Final [facility] NITROGEN Date Value Ref Range Status 10/10/2022 22 (H) 7 - 17 mg/dL Final Auto WBC Date Value Ref Range Status 10/10/2022 16.9 (H) 3.6 - 10.7 10*3/uL Final Ht Readings from Last 1 Encounters: No data found for Ht Wt Readings from Last 1 Encounters: No data found for Wt Plan: Will initiate vancomycin 750 mg IV every 24 hours based on predicted AUC of 464 mg/L.hr . Goal AUC is 400-600 mg/L.hr. Random level will be scheduled for 10/11 at 0500. Thank you for the consult. Will continue to follow. Normal [facility] ED Nursing Noteon 10-10-2022 ED Nursing Note Guided family back Lavinia Jenkins, EMT 10/10/22 1419 Normal [facility] ED Provider Noteon ED Provider Note Emergency Department Encounter [facility] ED Patient: Katherine Judge : 1935 Date of Evaluation: 10/10/2022 ED Supervising Physician: Evelin Salcedo, I independently examined and evaluated Katherine Judge. This will serve as my Supervisory note and shared attestation. I did perform a substantive portion of the visit including all aspects of the Medical Decision Making. I wore appropriate PPE for the entirety of this encounter. In brief, Katherine Judge is a 87 y.o. that presents to the emergency department for abdominal pain. Patient states she has had multiple abdominal surgeries in the past. She denies any nausea, vomiting, constipation, states she is still passing gas. She denies any fevers or chills. Patient states she is just feeling unwell Focused exam: I have reviewed the triage vital signs General: No acute distress. Alert & oriented x3. Nontoxic in appearance Skin: Warm, dry, no rashes visualized HEENT: Pupils equal and round, EOMI, normal sclera Neck: Trachea midline, no mass Cardiovascular: Regular rate, regular rhythm. No murmurs, rubs, or gallops. No peripheral edema Respiratory: Breath sounds clear to auscultation bilaterally, no wheeze, equal chest rise and fall Gastrointestinal: Soft, mildly distended, diffusely tender, no rebound, no guarding Musculoskeletal: Nontender, no gross deformities appreciated, no swollen joints exposed on exam Neurological: Alert and oriented, no focal neuro deficits, normal speech pattern Psychiatric: Appropriate mood and affect for condition, normal behavior Brief ED course/MDM: Patient is an 87-year-old female presenting to the emergency department with abdominal pain. Concern for SBO, colitis, gastritis, pancreatitis, or other acute intra-abdominal process. Plan to obtain CT abdomen pelvis with IV contrast and basic labs to evaluate. Labs concerning for leukocytosis to 16.9. CT abdomen pelvis with large stool burden concerning for proctocolitis with associated reactive lymph nodes. Given the patient's age, history of multiple abdominal surgeries, CT findings, as well as significant leukocytosis, patient would benefit from admission for further treatment of her abdominal pain. All diagnostic, treatment, and disposition decisions were made by myself in conjunction with the [facility]. For all further details of the patient's emergency department visit, please see their documentation. (Comment: Please note this report has been produced using speech recognition software and may contain errors related to that system including errors in grammar, punctuation, and spelling, as well as words and phrases that may be inappropriate. If there are any questions or concerns please feel free to contact the dictating provider for clarification.) Evelin Salcedo, Acute Care [facility] Evelin Salcedo DO 10/10/22 2131 [facility] ED Provider Note EMERGENCY DEPARTMENT ENCOUNTER Pt Name: Katherine Judge Birthdate 1935 Date of evaluation: 10/10/2022 ED Provider: Celeste Oneal PA-C EDcare was supervised by Dr. Salcedo who independently examined and evaluated the patient. Please see their attestation note for further details. CHIEF COMPLAINT Chief Complaint Patient presents with Abdominal Pain Pt states since last night she had right sided abd pain that moved to the left side. Pt states today she started to cough as well. Pt is alert and oriented vitals taken in triage HISTORY OF PRESENT ILLNESS (Location/Symptom, Timing/Onset, Context/Setting, Quality, Duration, Modifying Factors, Severity) Note limiting factors. I wore appropriate PPE for the entirety of this encounter. HPI Katherine Judge is a 87 y.o. who presents to the emergency department complaint of right-sided abdominal pain radiating towards her left side. Patient says that last night she started to have a productive cough and today woke up with sick p.o. abdominal pain. She is denying any nausea or vomiting. No diarrhea or constipation. Denies any urinary symptoms. No chest pain or shortness of breath. Says that she just feels very unwell. No recent sick contacts to her knowledge. Patient has a significant history of bowel obstruction in the past secondary to adhesions/endometriosis. She said this does not feel like a bowel obstruction because she is not having any nausea or vomiting. Nursing Notes were reviewed. Limitations to history: None Outside historians: None REVIEW OF SYSTEMS Review of Systems Constitutional: Negative for chills and fever. HENT: Negative for congestion and sore throat. Eyes: Negative for visual disturbance. Respiratory: Positive for cough. Negative for shortness of breath. Cardiovascular: Negative for chest pain. Gastrointestinal: Positive for abdominal pain. Negative for nausea and vomiting. Genitourinary: Negative for dysuria and hematuria. Musculoskeletal: Negative for arthralgias and myalgias. Skin: Negative for color change and rash. Neurological: Negative for dizziness and syncope. Psychiatric/Behavioral: Negative. All other systems reviewed and are negative. Pertinent positives and negatives as per HPI. PAST MEDICAL HISTORY Past Medical History: Diagnosis Date CAD (coronary artery disease) Hypothyroidism Ischemic colitis (CMS/HCC) SURGICAL HISTORY Past Surgical History: Procedure Laterality Date OTHER SURGICAL HISTORY she reports bowel resections in the past CURRENT MEDICATIONS Previous Medications No medications on file ALLERGIES Fish allergy, Cephalexin, Clarithromycin, Clindamycin, Doxazosin, Erythromycin base, Eszopiclone, Lorazepam, Nsaids, Penicillins, Rofecoxib, Salicylates, Temazepam, Tetracyclines & related, Trazodone, and Lincomycin FAMILY HISTORY No family history on file. SOCIAL HISTORY Social History Socioeconomic History Marital status: Tobacco Use Smoking status: Never Smokeless tobacco: Never Substance and Sexual Activity Alcohol use: Never Drug use: Never SCREENINGS PHYSICAL EXAM ED Triage Vitals [10/10/22 1328] Temp Heart Rate Resp BP 37.6 ?C (99.7 ?F) 110 16 (!) 143/82 SpO2 Temp Source Heart Rate Source Patient Position 91 % Temporal Monitor -- BP Location FiO2 (%) -- -- Physical Exam Vitals and nursing note reviewed. Constitutional: General: She is not in acute distress. Appearance: She is well-developed. Cardiovascular: Rate and Rhythm: Regular rhythm. Tachycardia present. Heart sounds: No murmur heard. Pulmonary: Effort: Pulmonary effort is normal. No respiratory distress. Breath sounds: Normal breath sounds. Abdominal: General: Bowel sounds are normal. There is no distension. Palpations: Abdomen is soft. Tenderness: There is generalized abdominal tenderness. There is no guarding or rebound. Musculoskeletal: Right lower leg: No edema. Left lower leg: No edema. Skin: General: Skin is warm and dry. Capillary Refill: Capillary refill takes less than 2 seconds. Neurological: Mental Status: She is alert and oriented to person, place, and time. Psychiatric: Mood and Affect: Mood normal. Behavior: Behavior normal. DIAGNOSTIC RESULTS RADIOLOGY (Per Emergency Physician): Interpretation per the Radiologist below, if available at the time of this note: CT abdomen pelvis w contrast (Results Pending) LABS: Labs Reviewed SARS-COV-2, FLU A/B, AND RSV COMBO BASIC METABOLIC PANEL HEPATIC FUNCTION PANEL LACTIC ACID, SEPSIS WITH REFLEX IF ELEVATED LIPASE CBC WITH AUTO DIFFERENTIAL COMPLETE URINALYSIS WITH REFLEX TO CULTURE Narrative: The following orders were created for panel order Urinalysis complete with reflex to Culture. Procedure Abnormality Status --------- ------ Complete Urinalysis[[id number]] Please view results for these tests on the individual orders. (more content not included)... Normal [facility] Hepatic function 2000 panelo n 10-10-2022 Albumin [Mass/Vol] 3.4 g/dL Low 3.5 - 5.0 g/dL [facility] [employer] ALP [Catalytic activity/Vol] 88 U/L 38 - 126 U/L [facility] [employer] ALT [Catalytic activity/Vol] 14 U/L 0 - 34 U/L [facility] [employer] AST [Catalytic activity/Vol] 24 U/L 15 - 46 U/L [facility] [employer] Bilirubin [Mass/Vol] 1.0 mg/dL 0.2 - 1 .3 mg/dL [facility] [employer] Bilirubin.conjugated [Mass/Vol] 0.0 mg/dL 0.0 - 0.3 mg/dL [facility] Protein [Mass/Vol] 7.0 g/dL 6.3 - 8.2 g/dL [facility] IDNon 10-10-2022 IDN The patient is Moder ately Stable - Low risk of patient condition declining or worsening The patient's goals for the shift include get rid of this pain The clinical goals for the shift include maintain safety, manage pain Over the shift, the patient did not make progress toward the following goals. Barriers to progression include acute illness. Recommendations to address these barriers include continue current care plan. Normal [facility] SHS Lactic acid, sepsis, with re flex if elevatedon 10-10-2022 Interpretation and review of laboratory results Normal [facility] Lactate [Moles/Vol] 0.9 mmol/L 0.7 - 2. 0 mmol/L [facility] Lipaseon 10-10-2022 Lipase [Catalytic activity/Vol] 25 U/L 23 - 300 U/L [facility] Lipase [Catalytic activity/V ol]on 10-10-2022 Interpretation and review of laboratory results Normal [facility] No Panel Informationon 10-10 Interpretation and review of laboratory results Abnormal [facility] Urinalysis complete panel (U )Ordered By: Argelia Wood on 10-10-2022 Bacteria LM.HPF (Urine sed) [#/Area] Negative Negative /HPF [facility] Bilirubin Ql (U) Negative Negative mg/dL [facility] Clarity (U) Clear Clear [facility] Color (U) Yellow Lt. Yellow [facility] Epithelial cells.squamous LM.HPF (Urine sed) [#/Area] 0-2 [facility] Glucose Ql (U) Normal Normal (<70) mg/dL [facility] Hemoglobin Ql (U) 0.03 mg/dL Abnormal Negative [facility] Hyaline casts Auto (Urine sed) [#/Area] 6-10 Abnormal Negative /LPF [facility] Interpretation and review of laboratory results Abnormal [facility] Ketones (U) [Mass/Vol] Trace Abnormal Negative mg/dL [facility] Leukocyte esterase Test strip Ql (U) Negative Negative Roxann/uL [facility] Mucus LM.HPF (Urine sed) [#/Area] Few Negative /LPF [facility] Nitrite Ql (U) Negative Negative [facility] pH (U) 5.5 [pH] 5.0 - 8.0 pH [facility] Protein (U) [Mass/Vol] 30 mg/dL Abnormal Negative [facility] [employer] RBC LM.HPF (Urine sed) [#/Area] 0-2 [facility] [employer] Specific gravity (U) [Rel density] 1.018 1.005 - 1.030 [facility] Urobilinogen (U) [Mass/Vol] Normal Normal (0-1) mg/dL [facility] WBC LM.HPF (Urine sed) [#/Area] 3-5 [facility] Blood Pressure Cuff Sizeon 0 09-11-2022 Tobacco use status CPHS b) No [facility] [facility] [place] Work Phone: Blood Pressure Cuff Size Adult [facility] [facility] [place] Work Phone: Office Visit (Cardiology)on 09-11-2022 Follow-up visit Diagnoses/Problems Assessed Moderate mitral valve regurgitation (424.0) (I34.0) MVP (mitral valve prolapse) (424.0) (I34.1) Orders Moderate mitral valve regurgitation, MVP (mitral valve prolapse) Start: levoFLOXacin 500 MG Oral Tablet; Take one tab the day before your procedure and one tab the day of your procedure MVP (mitral valve prolapse) Echocardiogram; Status:Hold For - Scheduling; Requested for:[id number]; PMH: History of hypertension Renew: Metoprolol Tartrate 50 MG Oral Tablet; TAKE 1 TABLET EVERY 12 HOURS DAILY PMH: History of hypokalemia Renew: Potassium Chloride ER 10 MEQ Oral Capsule Extended Release; TAKE 2 CAPSULES BY MOUTH DAILY History of Present Illness Mrs Judge is an 87 year old female with anemia, mitral regurg, rheumatic fever as a child, hypothyroidism, hypertension, hyperlipidemia, NE,m CAD, CABG and then an angioplasty after CABG, carotid artery disease, CVA, CKD, chronic colitis, osteoporosis, insomnia and peripheral neuropathy, here for a routine follow up. She reports a 7 lbs weight loss since I saw her last. She is having frequent episodes of diarrhea but denies any bleeding. Her home BPs average 130/70. She denies any complaints of chest pain, shortness of breath, palpitations, dizziness, lower extremity edema or any recent falls. She continues to take plavix 3 times a week and continues to complain of bruising . Today she has a bruise to her right cheek, but denies any trauma. Active Problems Problems Abnormal CT of the abdomen (793.6) (R93.5) Age-related cognitive decline (294.9) (R41.81) Allergic rhinitis (477.9) (J30.9) Anemia (285.9) (D64.9) Anemia in other chronic diseases classified elsewhere (285.29) (D63.8) Aortic stenosis (424.1) (I35.0) Back pain (724.5) (M54.9) Benign essential hypertension (401.1) (I10) Bilateral carotid artery stenosis (433.10,433.30) (I65.23) Body mass index (BMI) of 20.0 to 20.9 in adult (V85.1) (Z68.20) CAD (coronary artery disease) (414.00) (I25.10) Cerebral atherosclerosis (437.0) (I67.2) Chronic diastolic CHF (congestive heart failure), NYHA class 1 (428.32) (I50.32) Chronic kidney disease, stage III (moderate) (585.3) (N18.30) Colitis (558.9) (K52.9) GERD (gastroesophageal reflux disease) (530.81) (K21.9) Hiatal hernia (553.3) (K44.9) History of vitamin D deficiency (V12.1) (Z86.39) Hypercholesterolemia (272.0) (E78.00) Immunization due (V05.9) (Z23) Insomnia, unspecified type (780.52) (G47.00) Ischemic colitis (557.9) (K55.9) Lumbar spondylosis (721.3) (M47.816) Added by Problem List Migration; 2012-04-06; Moved to [facility] Jan 01 2013 4:07PM Medicare annual wellness visit, subsequent (V70.0) (Z00.00) Medication management (V58.69) (Z79.899) Moderate mitral valve regurgitation (424.0) (I34.0) MVP (mitral valve prolapse) (424.0) (I34.1) Osteoporosis (733.00) (M81.0) Peripheral neuropathy (356.9) (G62.9) Pneumonia, bacterial (482.9) (J15.9) Postmenopausal estrogen deficiency (V49.81) (Z78.0) Special screening for other conditions (V82.89) (Z13.89) Underweight (783.22) (R63.6) Vertebral compression fracture (805.8) (M48.50XA) Surgical History Problems History of Appendectomy History of CABG History of Cataract Surgery History of Colectomy subtotal History of Complete Colonoscopy History of Diagnostic Esophagogastroduodenoscopy History of Exploratory Laparoscopy explorative laparotomy ballon angioplasty History of Hysterectomy History of Knee Replacement History of Knee Replacement History of Knee Replacement Past Medical History Problems History of Acute Myocardial Infarction (V12.59) History of Acute Non-Q-wave Myocardial Infarction - Initial Care (New [place]) (410.71) Added by Problem List Migration; 2012-08-06 History of Arthritis (V13.4) History of Atherosclerotic heart disease of [place] coronary artery with unspecified angina pectoris (414.01,413.9) (I25.119) Added by Problem List Migration; 2012-10-05 History of Bladder spasm (596.89) (N32.89) Resolved Date: 21 Jan 2017 History of Caries (521.00) (K02.9) History of Cerebral Degenerations And Movement Disorders (331.9) Added by Problem List Migration; 2012-08-06 History of Cerebral ischemia (437.1) (I67.82) Added by Problem List Migration; 2012-08-06 History of Colitis (558.9) (K52.9) 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 Normal [facility] CHEST 2 VIEW PA AND LATon CHEST 2 VIEW PA AND LAT Patient Name: KATHERINE JUDGE STUDY: TH CHEST 2 VIEW PA AND LAT; 06/30/2022 1:10 pm INDICATION: recheck pneumonia; prior x-ray 05/30/2022 s/p tx with Levaquin. COMPARISON: 05/30/2022 ACCESSION NUMBER(S): [id number] ORDERING CLINICIAN: CHRIST URIBE TECHNIQUE: FINDINGS: Heart appears normal in size. There are atherosclerotic changes of the aorta. There is no discrete consolidation or pleural fluid. There is basilar atelectasis. There is an old right rib fracture. There is a large hiatal hernia. The patient is kyphotic. There are multiple thoracic compression fractures. COMPARISON OF FINDING: The lungs are better aerated on the current exam. Compression fractures are visible on the prior CT of the abdomen. IMPRESSION: No acute cardiopulmonary disease. Large hiatal hernia. Multiple compression fractures. Electronically signed by: GIORGI MULLER MD Normal [facility] Office Visit (Cardiology)on 06-12-2022 Follow-up visit Diagnoses/Problems Assessed CAD (coronary artery disease) (414.00) (I25.10) Pneumonia, bacterial (482.9) (J15.9) History of Present Illness 06/12/22: Mrs Judge is an 87 year old female with anemia, mitral regurg, rheumatic fever as a child, hypothyroidism, hypertension, hyperlipidemia, NE,m CAD, CABG and then an angioplasty after CABG, carotid artery disease, CVA, CKD, chronic colitis, osteoporosis, insomnia and peripheral neuropathy, here for an acute visit for complaints of shortness of breath. She was recently dx with pneumonia and she is currently on her second round of levaquin. Her weight is down 2 lbs since the initiation of lasix, however the patient states she has no appetite. She no longer has any lower extremity edema. Her GERD is much improved with Pepcid. 03/12/22: Mrs Judge is an 86 year old female with anemia, mitral regurg, rheumatic fever as a child, hypothyroidism, hypertension, hyperlipidemia, NE,m CAD, CABG and then an angioplasty after CABG, carotid artery disease, CVA, CKD, chronic colitis, osteoporosis, insomnia and peripheral neuropathy, here for a routine follow up. She denies any complaints of chest pain, but does complain of shortness of breath with exertion. She denies dizziness, syncope, hypotension, headaches, unilateral weakness, or bleeding. She is tolerating her medications well with no side effects. Prior to this visit, she underwent an echo and a carotid duplex, which I have shared the preliminary results with her. 08/14/2021:Mrs Judge is an 86 year old female with anemia, rheumatic fever as a child, hypothyroidism, hypertension, hyperlipidemia, NE,m CAD, CABG and then an angioplasty after CABG, carotid artery disease, CVA, CKD, chronic colitis, osteoporosis, insomnia and peripheral neuropathy, here for a routine follow up. She denies any complaints of chest pain, but does complain of shortness of breath with exertion. She denies dizziness, syncope, hypotension, headaches, unilateral weakness, or bleeding. She is complaining of increased bruising. Her home BPs have been very well controlled, averaging around 124/768. 04/05/21: Mrs Judge is here for a routine follow up for her hypertension and CKD. Her home BPs have been eelvated (150/88) until yesterday, when she developed severe watery diarrhea. She is complaining of dehydration and not feeling well. She took an antidiarrheal and has not had a bowel movement since then. 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 She denies any complaints of chest pain, shortness of breath, palpitations, lower extremity edema, dizziness or syncopal episodes. She reports elevated home BP readings. Today, her BP is 144/74. Her weight is up 5 lbs since December. Active Problems Problems Abnormal CT of the abdomen (793.6) (R93.5) Age-related cognitive decline (294.9) (R41.81) Allergic rhinitis (477.9) (J30.9) Anemia (285.9) (D64.9) Anemia in other chronic diseases classified elsewhere (285.29) (D63.8) Aortic stenosis (424.1) (I35.0) Back pain (724.5) (M54.9) Benign essential hypertension (401.1) (I10) Bilateral carotid artery stenosis (433.10,433.30) (I65.23) Body mass index (BMI) of 20.0 to 20.9 in adult (V85.1) (Z68.20) CAD (coronary artery disease) (414.00) (I25.10) Cerebral atherosclerosis (437.0) (I67.2) Chronic diastolic CHF (congestive heart failure), NYHA class 1 (428.32) (I50.32) Chronic kidney disease, stage III (moderate) (585.3) (N18.30) Colitis (558.9) (K52.9) GERD (gastroesophageal reflux disease) (530.81) (K21.9) Hiatal hernia (553.3) (K44.9) History of vitamin D deficiency (V12.1) (Z86.39) Hypercholesterolemia (272.0) (E78.00) Immunization due (V05.9) (Z23) Insomnia, unspecified type (780.52) (G47.00) Ischemic colitis (557.9) (K55.9) Lumbar spondylosis (721.3) (M47.816) Added by Problem List Migration; 2012-04-06; Moved to [facility] Jan 01 2013 4:07PM Medicare annual wellness visit, subsequent (V70.0) (Z00.00) Medication management (V58.69) (Z79.899) Moderate mitral valve regurgitation (424.0) (I34.0) MVP (mitral valve prolapse) (424.0) (I34.1) Osteoporosis (733.00) (M81.0) Peripheral neuropathy (356.9) (G62.9) Postmenopausal estrogen deficiency (V49.81) (Z78.0) Special screening for other conditions (V82.89) (Z13.89) Underweight (783.22) (R63.6) Vertebral compression fracture (805.8) (M48.50XA) Surgical History Problems History of Appendectomy History of CABG History of Cataract Surgery History of Colectomy subtotal History of Complete Colonoscopy History of Diagnostic Esophagogastroduodenoscopy History of Exploratory Laparoscopy explorative laparotomy ballon angioplasty History of Hysterectomy History of Knee Replacement History of Knee Replacemen (more content not included)... Normal [facility] Tobacco Screening.on 023 Fall risk assessment b) One or more fall s in the last year [facility] [place] Work Phone: Tobacco use status CPHS b) No [facility] [place] Work Phone: XR Chest 2 Viewson 3 Possible focus of ne w right lower lobe pneumonia. Large hiatal hernia again noted. Numerous vertebral compression fractures. [facility] Interpreted By: HEIDI CHANEL MD Patient Name: KATHERINE JUDGE STUDY: TH CHEST 2 VIEW PA AND LAT INDICATION: hypoxia; no chest pain, no cough. COMPARISON: October 09, 2017 ACCESSION NUMBER(S): [id number] ORDERING CLINICIAN: CHRIST URIBE FINDINGS: Cardiomegaly with median sternotomy unchanged. Large hiatal hernia. Possible new patchy right basilar airspace opacity which could be a component of pneumonia. Numerous vertebral compression fractures again noted. [facility] Heidi Muller MD - 05/31/2022 Interpreted By: HEIDI MULLER MD Patient Name: YEIMI JUDGECE STUDY: TH CHEST 2 VIEW PA AND LAT INDICATION: hypoxia; no chest pain, no cough. COMPARISON: October 09, 2017 ACCESSION NUMBER(S): [id number] ORDERING CLINICIAN: CHRIST URIBE FINDINGS: Cardiomegaly with median sternotomy unchanged. Large hiatal hernia. Possible new patchy right basilar airspace opacity which could be a component of pneumonia. Numerous vertebral compression fractures again noted. IMPRESSION: Possible focus of new right lower lobe pneumonia. Large hiatal hernia again noted. Numerous vertebral compression fractures. [facility] Work Phone: XR Chest 2 ViewsOrdered By: Heidi Muller on 05-31-[address] [facility] Work Phone: BASIC METABOLIC PANELon 04-2 Anion gap [Moles/Vol] 13 mmol/L Normal 10 - 20 [facility] Comment on above: Performed By: #### B MP #### [facility] [id number] [place] [address] Calcium [Mass/Vol] 10.2 mg/dL Normal 8.6 - 10.6 [facility] Comment on above: Performed By: #### B MP #### [facility] [address] [place] [address] Chloride [Moles/Vol] 105 mmol/L Normal 98 - 107 [facility] Comment on above: Performed By: #### B MP #### [facility] [address] [place] [address] Creatinine [Mass/Vol] 0.93 mg/dL Normal 0.50 - 1.05 [facility] Comment on above: Performed By: #### B MP #### [facility] [address] [place] [address] GFR/1.73 sq M.predicted among non-blacks MDRD (S/P/Bld) [Vol rate/Area] 60 mL/min/{1.73_m2} Normal >90 [facility] Comment on above: Result Comment: CALC ULATIONS OF ESTIMATED GFR ARE PERFORMED USING THE 2020 CKD-EPI STUDY REFIT EQUATION WITHOUT THE RACE VARIABLE FOR THE IDMS-TRACEABLE CREATININE METHODS. https://jasn.asnjournals.org/content//ASN.478586 5580 Performed By: #### B MP #### [facility] [address] [place] [address] Glucose [Mass/Vol] 84 mg/dL Normal 74 - 99 [facility] Comment on above: Performed By: #### B MP #### [facility] [id number] [place] [address] HCO3 (Bld) [Moles/Vol] 31 mmol/L Normal 21 - 32 [facility] Comment on above: Performed By: #### B MP #### [facility] [address] [place] [address] Potassium [Moles/Vol] 4.2 mmol/L Normal 3.5 - 5.3 [facility] Comment on above: Performed By: #### B MP #### [facility] [address] [place] [address] Sodium [Moles/Vol] 145 mmol/L Normal 136 - 145 [facility] Comment on above: Performed By: #### B MP #### [facility] [address] [place] [address] Urea nitrogen [Mass/Vol] 22 mg/dL Normal 6 - 23 [facility] Comment on above: Performed By: #### B MP #### [facility] [address] [place] [address] CBCon 05-30-2022 Erythrocyte distribution width (RBC) [Ratio] 14.7 % High 11.5 - 14.5 [facility] Comment on above: Performed By: #### C BC ####[id number] [place] [address] Hematocrit (Bld) [Volume fraction] 41.1 % Normal 36.0 - 46.0 [facility] Comment on above: Performed By: #### C BC ####[id number] [place] [address] Hemoglobin (Bld) [Mass/Vol] 13.0 g/dL Normal 12.0 - 16.0 [facility] Comment on above: Performed By: #### C BC ####[id number] [place] [address] MCHC (RBC) [Mass/Vol] 31.6 g/dL Low 32.0 - 36.0 [facility] Comment on above: Performed By: #### C BC ####[id number] [place] [address] MCV (RBC) [Entitic vol] 106 fL High 80 - 100 [facility] Comment on above: Performed By: #### C BC ####[id number] [place] [address] NUCLEATED RBC 0.3 /100 WBC Normal 0.0-0.0 [facility] Comment on above: Performed By: #### C BC ####[id number] [place] [address] Platelets (Bld) [#/Vol] 234 10*3/uL Normal 150 - 450 [facility] Comment on above: Performed By: #### C BC ####[id number] [place] [address] RBC 3.87 x10E12/L Low 4.00 - 5.20 [facility] Comment on above: Performed By: #### C BC ####[id number] [place] [address] WBC (Bld) [#/Vol] 7.0 10*3/uL Normal 4.4 - 11.3 [facility] Comment on above: Performed By: #### C BC ####[id number] [place] [address] CHEST 2 VIEW PA AND LATon CHEST 2 VIEW PA AND LAT Patient Name: KATHERINE JUDGE STUDY: TH CHEST 2 VIEW PA AND LAT INDICATION: hypoxia; no chest pain, no cough. COMPARISON: October 09, 2017 ACCESSION NUMBER(S): [id number] ORDERING CLINICIAN: CHRIST URIBE FINDINGS: Cardiomegaly with median sternotomy unchanged. Large hiatal hernia. Possible new patchy right basilar airspace opacity which could be a component of pneumonia. Numerous vertebral compression fractures again noted. IMPRESSION: Possible focus of new right lower lobe pneumonia. Large hiatal hernia again noted. Numerous vertebral compression fractures. Electronically signed by: HEIDI MULLER MD Normal [facility] LIPID PANEL (CORONARY RISK 2 )on 05-30-2022 Cholesterol [Mass/Vol] 158 mg/dL Normal 0 - 199 [facility] Comment on above: Result Comment: . AGE DESIRABLE BORDERLINE HIGH HIGH 0-19 Y 0 - 169 170 - 199 >/= 200 20-24 Y 0 - 189 190 - 224 >/= 225 >24 Y 0 - 199 200 - 239 >/= 240 All ranges are based on fasting samples. Specific therapeutic targets will vary based on patient-specific cardiac risk. . Pediatric guidelines reference:Pediatrics 2011, 128(S5). Adult guidelines reference: NCEP ATPIII Guidelines, LAURA 2001, 258:2486-97 . Venipuncture immediately after or during the administration of Metamizole may lead to falsely low results. Testing should be performed immediately prior to Metamizole dosing. Performed By: #### L IPID #### [facility] [address] [place] [address] Cholesterol in HDL [Mass/Vol] 47.3 mg/dL Normal [facility] Comment on above: Result Comment: . AGE VERY LOW LOW NORMAL HIGH 0-19 Y < 35 < 40 40-45 ---- 20-24 Y ---- < 40 >45 ---- >24 Y ---- < 40 40-60 >60 . Performed By: #### L IPID #### [facility] [id number] [place] [address] Cholesterol in LDL [Mass/Vol] 84 mg/dL Normal 0 - 99 [facility] Comment on above: Result Comment: . NEAR BORD AGE DESIRABLE OPTIMAL HIGH HIGH VERY HIGH 0-19 Y 0 - 109 --- 110-129 >/= 130 ---- 20-24 Y 0 - 119 --- 120-159 >/= 160 ---- >24 Y 0 - 99 100-129 130-159 160-189 >/=190 . Performed By: #### L IPID #### [facility] [address] [place] [address] Cholesterol in VLDL [Mass/Vol] 27 mg/dL Normal 0 - 40 [facility] Comment on above: Performed By: #### L IPID #### [facility] [address] [place] [address] Cholesterol.total/Cho lesterol in HDL [Mass ratio] 3.3 {ratio} Normal [facility] Comment on above: Result Comment: REF VALUES DESIRABLE < 3.4 HIGH RISK > 5.0 Performed By: #### L IPID #### [facility] [address] [place] [address] Triglyceride [Mass/Vol] 135 mg/dL Normal 0 - 149 [facility] Comment on above: Result Comment: . AGE DESIRABLE BORDERLINE HIGH HIGH VERY HIGH 0 D-90 D 19 - 174 ---- ---- ---- 91 D- 9 Y 0 - 74 75 - 99 >/= 100 ---- 10-19 Y 0 - 89 90 - 129 >/= 130 ---- 20-24 Y 0 - 114 115 - 149 >/= 150 ---- >24 Y 0 - 149 150 - 199 200- 499 >/= 500 . Venipuncture immediately after or during the administration of Metamizole may lead to falsely low results. Testing should be performed immediately prior to Metamizole dosing. Performed By: #### L IPID #### [facility] [address] [place], [place] MAGNESIUMon 05-30-2022 Magnesium [Mass/Vol] 2.26 mg/dL Normal 1.60 - 2.40 [facility] Comment on above: Performed By: #### M G #### [facility] [id number] [place], [place] PHOSPHORUSon 05-30-2022 Phosphate [Mass/Vol] 3.3 mg/dL Normal 2.5 - 4.9 [facility] Comment on above: Result Comment: The performance characteristics of phosphorus testing in heparinized plasma have been validated by the individual laboratory site where testing is performed. Testing on heparinized plasma is not approved by the FDA; however, such approval is not necessary. Performed By: #### P HOS #### [facility] [address] [place] [address] Radiologyon 05-30-2022 XR Chest 2 Views Normal [facility] [place] Work Phone: VITAMIN D, 25-HYDROXYon 05-11 VITAMIN D, 25-HYDROXY 79 ng/mL Normal [facility] Comment on above: Result Comment: . DEFICIENCY: < 20 NG/ML INSUFFICIENCY: 20-29 NG/ML SUFFICIENCY: 30-100 NG/ML THIS ASSAY ACCURATELY QUANTIFIES THE SUM OF VITAMIN D3, 25-HYDROXY AND VIT D2,25-HYDROXY. Performed By: #### V TDOH ####[id number], [place] XR Chest 2 Viewson 3 Radiology Study observation (narrative) [facility] Work Phone: [phone] LIPID PANEL (CORONARY RISK 2 )on 05-29-2022 Lab Specimen Source Normal [facility] Comment on above: Performed By: #### L IPID #### [facility] [id number] [place] [address] Performed By: #### M G #### [facility] [id number] [place], [place] Performed By: #### B MP #### [facility] [address] [place], [place] Performed By: #### P HOS #### [facility] [address] [place] [address] Performed By: #### C BC ####[id number], [place] Laboratory - Chemistry and C hemistry - challengeon 05-29-2022 Anion gap [Moles/Vol] 13 mmol/L 10 - 20 [facility] [address] [place] Work Phone: [phone] Calcium [Mass/Vol] 10.2 mg/dL 8.6 - 10.6 [facility] [address] [place] Work Phone: [phone] Chloride [Moles/Vol] 105 mmol/L 98 - 107 [facility] [address] [place] Work Phone: [phone] CO2 [Moles/Vol] 31 mmol/L 21 - 32 [facility] [address] [place] Work Phone: [phone] Creatinine [Mass/Vol] 0.93 mg/dL See Below [facility] [address] [place] Work Phone: [phone] Comment on above: Reference Range: 0.5 0 - 1.05 Glucose [Mass/Vol] 84 mg/dL 74 - 99 [facility] [address] [place] Work Phone: [phone] Comment on above: SOURCE: Potassium [Moles/Vol] 4.2 mmol/L 3.5 - 5.3 [facility] [place] Work Phone: [phone] Sodium [Moles/Vol] 145 mmol/L 136 - 145 [facility] [place] Work Phone: [phone] Urea nitrogen [Mass/Vol] 22 mg/dL 6 - 23 [facility] [place] Work Phone: [phone] Laboratory - Hematology and Cell countson 05-29-2022 Erythrocyte distribution width (RBC) [Ratio] 14.7 % above high threshold See Below [facility] [place] Work Phone: [phone] Comment on above: Reference Range: 11. 5 - 14.5 Hematocrit (Bld) [Volume fraction] 41.1 % See Below [facility] [place] Work Phone: [phone] Comment on above: Reference Range: 36. 0 - 46.0 Hemoglobin (Bld) [Mass/Vol] 13.0 g/dL See Below [facility] [place] Work Phone: [phone] Comment on above: Reference Range: 12. 0 - 16.0 MCHC (RBC) [Mass/Vol] 31.6 g/dL below low threshold See Below [facility] [place] Work Phone: [phone] Comment on above: Reference Range: 32. 0 - 36.0 MCV (RBC) [Entitic vol] 106 fL above high threshold 80 - 100 [facility] [place] Work Phone: [phone] Platelets (Bld) [#/Vol] 234 10*3/uL 150 - 450 [facility] [place] Work Phone: [phone] RBC (Bld) [#/Vol] 3.87 {x10E12/L} below low threshold See Below [facility] [place] Work Phone: [phone] Comment on above: Reference Range: 4.0 0 - 5.20 WBC (Bld) [#/Vol] 7.0 10*3/uL 4.4 - 11.3 [facility] [place] Work Phone: Comment on above: SOURCE: Lipid Panelon 05-29-2022 Cholesterol [Mass/Vol] 158 mg/dL 0 - 199 [facility] [place] Work Phone: Comment on above: SOURCE: . AGE DESIRA BLE BORDERLINE HIGH HIGH 0-19 Y 0 - 169 170 - 199 >/= 200 20-24 Y 0 - 189 190 - 224 >/= 225 >24 Y 0 - 199 200 - 239 >/= 240 All ranges are based on fasting samples. Specific therapeutic targets will vary based on patient-specific cardiac risk.. Pediatric guidelines reference:Pediatrics 2011, 128(S5). Adult guidelines reference: NCEP ATPIII Guidelines, LAURA 2001, 258:2486-97. Venipuncture immediately after or during the administration of Metamizole may lead to falsely low results. Testing should be performed immediately prior to Metamizole dosing. Cholesterol in HDL [Mass/Vol] 47.3 mg/dL [facility] [place] Work Phone: Comment on above: . AGE VERY LOW LOW N ORMAL HIGH 0-19 Y < 35 < 40 40-45 ---- 20- 24 Y ---- < 40 >45 ---- >24 Y ---- < 40 40-60 >60. Cholesterol in LDL [Mass/Vol] 84 mg/dL 0 - 99 [facility] [place] Work Phone: Comment on above: . NEAR BORD AGE TORI RABLE OPTIMAL HIGH HIGH VERY HIGH 0-19 Y 0 - 109 --- 110-129 >/= 130 ---- 20-24 Y 0 - 119 --- 120-159 >/= 160 ---- >24 Y 0 - 99 100-129 130-159 160-189 >/=190. Cholesterol.total/Cho lesterol in HDL [Mass ratio] 3.3 {ratio} [facility] [place] Work Phone: Comment on above: REF VALUESDESIRABLE < 3.4HIGH RISK > 5.0 Triglyceride [Mass/Vol] 135 mg/dL 0 - 149 [facility] [place] Work Phone: Comment on above: . AGE DESIRABLE BORD MEL HIGH HIGH VERY HIGH 0 D-90 D 19 - 174 ---- ---- ----91 D- 9 Y 0 - 74 75 - 99 >/= 100 ---- 10-19 Y 0 - 89 90 - 129 >/= 130 ---- 20-24 Y 0 - 114 115 - 149 >/= 150 ---- >24 Y 0 - 149 150 - 199 200- 499 >/= 500. Venipuncture immediately after or during the administration of Metamizole may lead to falsely low results. Testing should be performed immediately prior to Metamizole dosing. Lipid Panel 27 mg/dL 0 - 40 [facility] [place] Work Phone: Magnesium, Serumon 3 Magnesium [Mass/Vol] 2.26 mg/dL See Below [facility] [place] Work Phone: Comment on above: SOURCE: Reference Ra nge: 1.60 - 2.40 No Panel Informationon 05-29 60 {mL/min/1.73m2} >90 [facility] [place] Work Phone: Comment on above: CALCULATIONS OF ALVARO MATED GFR ARE PERFORMED USING THE 2020 CKD-EPI STUDY REFIT EQUATION WITHOUT THE RACE VARIABLE FOR THE IDMS-TRACEABLE CREATININE METHODS.https://jasn.asnjournals.org/content// N.3865748508 0.3 {/100_WBC} 0.0-0.0 [facility] [place] Work Phone: Phosphorus, Serumon 05-30-19 23 Phosphate [Mass/Vol] 3.3 mg/dL 2.5 - 4.9 [facility] [place] Work Phone: Comment on above: SOURCE: The performa nce characteristics of phosphorus testing in heparinized plasma have been validated by the individual laboratory site where testing is performed. Testing on heparinized plasma is not approved by the FDA; however, such approval is not necessary. Vitamin D 25-Hydroxyon 05-29 25-hydroxyvitamin D3 [Mass/Vol] 79 ng/mL -Radha Burgos [address] [place] Work Phone: Comment on above: .DEFICIENCY: < 20 NG /MLINSUFFICIENCY: 20-29 NG/MLSUFFICIENCY: 30-100 NG/MLTHIS ASSAY ACCURATELY QUANTIFIES THE SUM OFVITAMIN D3, 25-HYDROXY AND VIT D2,25-HYDROXY. BONE DENSITY, DEXA 1 OR MORE SITES: AXIAL SKELETONon 05-09-2022 BONE DENSITY, DEXA 1 OR MORE SITES: AXIAL SKELETON Name: KATHERINE JUDGE Date: 1935 Height: 60.0 in. Gender: Female Exam Date: 05/09/2022 Weight: 94.0 lbs. Indications: History of Fracture (Adult), Post-menopausal, POSTMENOPAUSAL ESTROGEN DEFICIENCY Fractures: Electronically signed by: SUHAIL ALMANZA MD Treatments: Electronically signed by: SUHAIL ALMANZA MD LEFT FEMUR - TOTAL The bone mineral density : 0.644 g/cm2 T-score : -2.9 % of young normal mean :64 % Z-score : -0.6 % of age matched mean : 90 % % change vs. Previous : % change vs. Baseline : *Indicates significant change based on 95% confidence interval. LEFT FEMUR - NECK The bone mineral density : 0.628 g/cm2 T-score : -3.0 % of young normal mean: 60 % Z-score : -0.5 % of age matched mean : 90 % % change vs. Previous : % change vs. Baseline : *Indicates significant change based on 95% confidence interval. SPINE L1-L4 The bone mineral density is 1.218 g/cm2 T-score : 0.2 % of young normal mean is 102 % Z-score : 2.1 % of age matched mean is 127 % % change vs. Previous : % change vs. Baseline : *Indicates significant change based on 95% confidence interval. World Health Organization (WHO) criteria for post-menopausal, Women: Normal: T-score at or above -1 SD Osteopenia: T-score between -1 and -2.5 SD Osteoporosis: T-score at or below -2.5 SD 10-Year Fracture Risk: Major Osteoporotic Fracture - Hip Fracture - Reported Risk Factors History of Fracture (Adult) Interpretation: According to World Health Organization criteria, classification osteoporosis. Followup recommended on April 2023 or sooner as clinically warranted. Electronically signed by: SUHAIL ALMANZA MD Normal [facility] Blood Pressure Cuff Sizeon 0 03-12-2022 Tobacco use status CPHS b) No [facility] Work Phone: Blood Pressure Cuff Size Adult [facility] Work Phone: Echocardiogramon 03-12-2022 Echocardiography [facility] , [address] [place] [address], [address] [address] and TRANSTHORACIC ECHOCARDIOGRAM REPORT Patient Name: KATHERINE JUDGE Reading Physician: [id number] Darlene Ayala MD Study Date: 03/12/2022 Referring Physician: Apple Beth MRN/PID: [id number] PCP: Accession/Order#: [id number] Department Location: [facility] Date of : 1935 Fellow: Gender: F Nurse: Admit Date: Edi Specialist: Rama ALEGRE Admission Status: Outpatient Additional Staff: Height: 154.94 cm CC Report to: Weight: 48.08 kg Study Type: Echocardiogram BSA: 1.44 m2 Blood Pressure: 136 /69 mmHg Diagnosis/ICD: I34.1-Nonrheumatic mitral (valve) prolapse; I25.10-Atherosclerotic heart disease of [place] coronary artery without angina pectoris Indication: CAD, MVP Procedure/CPT: Echo Complete w Full Doppler-[id number] Patient History: Pertinent History: Hx rheumatic fever as child, Anemia, Hypothyroid, HTN, HLD, Hx CVA, CKD, CAD s/p NE s/p CABG x2, Posterior MVP. Study Detail: The following Echo studies were performed: M-Mode, 2D, Doppler and color flow. Technically challenging study due to body habitus and poor patient positioning on bed. PHYSICIAN INTERPRETATION: Left Ventricle: The left ventricular systolic function is normal, with an estimated ejection fraction of 60-65%. There are no regional wall motion abnormalities. The left ventricular cavity size is normal. There is mild concentric left ventricular hypertrophy. Spectral Doppler shows an impaired relaxation pattern of left ventricular diastolic filling. Left Atrium: The left atrium is mildly dilated. Right Ventricle: The right ventricle is normal in size. There is normal right ventricular global systolic function. Right Atrium: The right atrium is normal in size. Aortic Valve: The aortic valve is trileaflet. There is no evidence of aortic valve regurgitation. The peak instantaneous gradient of the aortic valve is 12.1 mmHg. The mean gradient of the aortic valve is 6.6 mmHg. Mitral Valve: The mitral valve is mildly thickened. There is mild to moderate mitral valve regurgitation. There is moderate to severe prolapse of the P2 segment of the posterior leaflet. There is mild to moderate centrally and laterally directed mitral regurgitation. Tricuspid Valve: The tricuspid valve is structurally normal. There is mild tricuspid regurgitation. The Doppler estimated RVSP is mildly elevated at 39.0 mmHg. Pulmonic Valve: The pulmonic valve is structurally normal. There is no indication of pulmonic valve regurgitation. Pericardium: There is no pericardial effusion noted. Aorta: The aortic root is normal. CONCLUSIONS: 1. Left ventricular systolic function is normal with a 60-65% estimated ejection fraction. 2. Spectral Doppler shows an impaired relaxation pattern of left ventricular diastolic filling. 3. There is moderate to severe prolapse of the P2 segment of the posterior leaflet. There is mild to moderate centrally and laterally directed mitral regurgitation. 4. Mild to moderate mitral valve regurgitation. 5. Mildly elevated RVSP. QUANTITATIVE DATA SUMMARY: 2D MEASUREMENTS: Normal Ranges: Ao Root d: 2.50 cm (2.0-3.7cm) IVSd: 1.45 cm (0.6-1.1cm) LVPWd: 1.04 cm (0.6-1.1cm) LVIDd: 3.31 cm (3.9-5.9cm) LVIDs: 2.29 cm LV Mass Index: 92.3 g/m2 LV % FS 30.8 % LA VOLUME: Normal Ranges: LA Vol A4C: 85.0 ml (22+/-6mL/m2) LA Vol A2C: 70.8 ml LA Vol BP: 81.0 ml LA Vol Index A4C: 59.0ml/m2 LA Vol Index A2C: 49.1 ml/m2 LA Vol Index BP: 56.2 ml/m2 LA Area A4C: 24.5 cm2 LA Area A2C: 21.4 cm2 LA [place] A4C: 6.0 cm LA [place] A2C: 5.5 cm LA Vol A4C: 79.5 ml LA Vol A2C: 67.7 ml RA VOLUME BY A/L METHOD: Normal Ranges: RA Vol A4C: 33.2 ml (8.3-19.5ml) RA Vol Index A4C: 23.0 ml/m2 RA Area A4C: 13.1 cm2 RA [place] A4C: 4.4 cm AORTA MEASUREMENTS: Normal Ranges: Asc Ao, d: 3.00 cm (2.1-3.4cm) LV SYSTOLIC FUNCTION BY 2D PLANIMETRY (MOD): Normal Ranges: EF-A4C View: 62.7 % (>=55%) EF-A2C View: 63.6 % EF-Biplane: 62.9 % LV DIASTOLIC FUNCTION: Normal Ranges: MV Peak E: 0.87 m/s (0.7-1.2 m/s) MV Peak A: 0.90 m/s (0.42-0.7 m/s) E/A Ratio: 0.97 (1.0-2.2) MV e' 0.06 m/s (>8.0) MV lateral e' 0.09 m/s MV medial e' 0.04 m/s E/e' Ratio: 13.34 (<8.0) MV DT: 292 msec (150-240 msec) MITRAL VALVE: Normal Ranges: MV DT: 292 msec (150-240msec) MITRAL INSUFFICIENCY: Normal Ranges: MR VTI: 171.37 cm MR Vmax: 591.70 cm/s MR Volume: 20.78 ml MR Flow Rt: 71.74 ml/s MR EROA: 0.12 cm2 AORTIC VALVE: Normal Ranges: AoV Vmax: 1.74 m/s (<=1.7m/s) AoV Peak P.1 mmHg (<20mmHg) AoV Mean P.6 mmHg (1.7-11.5mmHg) LVOT Max Tiffany: 0.96 m/s (<=1.1m/s) AoV VTI: 42.12 cm (18-25cm) LVOT VTI: 21.82 cm LVOT Diameter: 1.68 cm (1.8-2.4cm) AoV Area, VTI: 1.15 cm2 (2.5-5.5cm2) AoV Area,Vmax: 1.23 cm2 (2.5-4.5cm2) AoV Dimensionless Index: 0.52 RIGHT VENTRICLE: RV 1 3.7 cm RV 2 2.9 cm (more content not included)... Normal [facility] Office Visit (Cardiology)on 03-12-2022 Follow-up visit Diagnoses/Problems Assessed Aortic stenosis (424.1) (I35.0) Benign essential hypertension (401.1) (I10) Bilateral carotid artery stenosis (433.10,433.30) (I65.23) CAD (coronary artery disease) (414.00) (I25.10) Hypercholesterolemia (272.0) (E78.00) History of Present Illness 03/12/22: Mrs Judge is an 86 year old female with anemia, mitral regurg, rheumatic fever as a child, hypothyroidism, hypertension, hyperlipidemia, NE,m CAD, CABG and then an angioplasty after CABG, carotid artery disease, CVA, CKD, chronic colitis, osteoporosis, insomnia and peripheral neuropathy, here for a routine follow up. She denies any complaints of chest pain, but does complain of shortness of breath with exertion. She denies dizziness, syncope, hypotension, headaches, unilateral weakness, or bleeding. She is tolerating her medications well with no side effects. Prior to this visit, she underwent an echo and a carotid duplex, which I have shared the preliminary results with her. 08/14/2021:Mrs Judge is an 86 year old female with anemia, rheumatic fever as a child, hypothyroidism, hypertension, hyperlipidemia, NE,m CAD, CABG and then an angioplasty after CABG, carotid artery disease, CVA, CKD, chronic colitis, osteoporosis, insomnia and peripheral neuropathy, here for a routine follow up. She denies any complaints of chest pain, but does complain of shortness of breath with exertion. She denies dizziness, syncope, hypotension, headaches, unilateral weakness, or bleeding. She is complaining of increased bruising. Her home BPs have been very well controlled, averaging around 124/768. 04/05/21: Mrs Judge is here for a routine follow up for her hypertension and CKD. Her home BPs have been eelvated (150/88) until yesterday, when she developed severe watery diarrhea. She is complaining of dehydration and not feeling well. She took an antidiarrheal and has not had a bowel movement since then. 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 She denies any complaints of chest pain, shortness of breath, palpitations, lower extremity edema, dizziness or syncopal episodes. She reports elevated home BP readings. Today, her BP is 144/74. Her weight is up 5 lbs since December. Active Problems Problems Abnormal CT of the abdomen (793.6) (R93.5) Age-related cognitive decline (294.9) (R41.81) Allergic rhinitis (477.9) (J30.9) Anemia (285.9) (D64.9) Anemia in other chronic diseases classified elsewhere (285.29) (D63.8) Aortic stenosis (424.1) (I35.0) Back pain (724.5) (M54.9) Benign essential hypertension (401.1) (I10) Bilateral carotid artery stenosis (433.10,433.30) (I65.23) Body mass index (BMI) of 20.0 to 20.9 in adult (V85.1) (Z68.20) CAD (coronary artery disease) (414.00) (I25.10) Cerebral atherosclerosis (437.0) (I67.2) Chronic diastolic CHF (congestive heart failure), NYHA class 1 (428.32) (I50.32) Chronic kidney disease, stage III (moderate) (585.3) (N18.30) Colitis (558.9) (K52.9) GERD (gastroesophageal reflux disease) (530.81) (K21.9) Hiatal hernia (553.3) (K44.9) History of vitamin D deficiency (V12.1) (Z86.39) Hypercholesterolemia (272.0) (E78.00) Immunization due (V05.9) (Z23) Insomnia, unspecified type (780.52) (G47.00) Ischemic colitis (557.9) (K55.9) Lumbar spondylosis (721.3) (M47.816) Added by Problem List Migration; 2012-04-06; Moved to [facility] Jan 01 2013 4:07PM Medicare annual wellness visit, subsequent (V70.0) (Z00.00) Medication management (V58.69) (Z79.899) Moderate mitral valve regurgitation (424.0) (I34.0) MVP (mitral valve prolapse) (424.0) (I34.1) Osteoporosis (733.00) (M81.0) Peripheral neuropathy (356.9) (G62.9) Postmenopausal estrogen deficiency (V49.81) (Z78.0) Special screening for other conditions (V82.89) (Z13.89) Underweight (783.22) (R63.6) Vertebral compression fracture (805.8) (M48.50XA) Surgical History Problems History of Appendectomy History of CABG History of Cataract Surgery History of Colectomy subtotal History of Complete Colonoscopy History of Diagnostic Esophagogastroduodenoscopy History of Exploratory Laparoscopy explorative laparotomy ballon angioplasty History of Hysterectomy History of Knee Replacement History of Knee Replacement History of Knee Replacement Past Medical History Problems History of Acute Myocardial Infarction (V12.59) History of Acute Non-Q-wave Myocardial Infarction - Initial Care (New [place]) (410.71) Added by Problem List Migration; 2012-08-06 History of Arthritis (V13.4) History of Atherosclerotic heart disease of [place] coronary artery with unspecified angina pectoris (414.01,413.9) (I25.119) Added by Problem List Migration; 2012-10-05 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 Normal [facility] Carotid Artery Dupl ex Ultrasounon 03-12-2022 VASC LAB Carotid Artery Duplex Ultrasoun [address], [address] [address] and Vascular Lab Report Carotid Artery Duplex Ultrasound Patient Name: KATHERINE Lo Physician: [id number] Gonsalo Willis MD Study Date: 03/12/2022 Referring Physician: APPLE BETH MRN/PID: [id number] PCP: Accession/Order#: [id number] CC Report to: Date of : 1935 Technologist: Anthony Rich RVT, RDMS Gender: F Technologist 2: Admission Status: Outpatient Location Performed: [facility] Diagnosis/ICD: R09.89-Other specified symptoms and signs involving the circulatory and respiratory systems Procedure/CPT: 24778 Cerebrovascular Carotid Duplex scan complete-[id number] CONCLUSIONS: Right Carotid: Findings are consistent with less than 50% stenosis of the right proximal ICA. Right external carotid artery appears patent with no evidence of stenosis. The right vertebral artery is patent with antegrade flow. No evidence of hemodynamically significant stenosis in the right subclavian. Left Carotid: Findings are consistent with less than 50% stenosis of the left proximal ICA. Left external carotid artery appears patent with no evidence of stenosis. The left vertebral artery is patent with antegrade flow. No evidence of hemodynamically significant stenosis in the left subclavian. Comparison: Compared with study from 04/16/2020, no significant change. Imaging AND Doppler Findings: Right Plaque Morph: The proximal right internal carotid artery demonstrates heterogenous plaque. The distal right common carotid artery demonstrates heterogenous plaque. Left Plaque Morph: The proximal left internal carotid artery demonstrates heterogenous plaque. The distal left common carotid artery demonstrates heterogenous plaque. Right Left PSV EDV PSV EDV 156 cm/s CCA P 94 cm/s 63 cm/s CCA D 71 cm/s 55 cm/s 12 cm/s ICA P 54 cm/s 12 cm/s 78 cm/s 17 cm/s ICA M 76 cm/s 19 cm/s 90 cm/s 20 cm/s ICA D 61 cm/s 12 cm/s 88 cm/s ECA 81 cm/s 37 cm/s 6 cm/s Vertebral 42 cm/s 10 cm/s 116 cm/s Subclavian 144 cm/s Right Left ICA/CCA Ratio 0.9 0.8 [id number] Gonsalo Willis MD Final Normal [facility] Carotid Artery Dupl ex Ultrasoundon 03-12-2022 US.doppler Carotid arteries [facility] Work Phone: BASIC METABOLIC PANELon 09-0 Anion gap [Moles/Vol] 15 mmol/L Normal 10 - 20 [facility] Comment on above: Performed By: #### B MP #### [facility] [address] [place] [address] Calcium [Mass/Vol] 10.3 mg/dL Normal 8.6 - 10.6 [facility] Comment on above: Performed By: #### B MP #### [place] [address] [place] [address] Chloride [Moles/Vol] 103 mmol/L Normal 98 - 107 [facility] Comment on above: Performed By: #### B MP #### [facility] [address] [place] [address] Creatinine [Mass/Vol] 1.22 mg/dL High 0.50 - 1.05 [facility] Comment on above: Performed By: #### B MP #### [facility] [address] [place] [address] GFR/1.73 sq M.predicted among non-blacks MDRD (S/P/Bld) [Vol rate/Area] 43 mL/min/{1.73_m2} Abnormal >90 [facility] Comment on above: Result Comment: CALC ULATIONS OF ESTIMATED GFR ARE PERFORMED USING THE 2020 CKD-EPI STUDY REFIT EQUATION WITHOUT THE RACE VARIABLE FOR THE IDMS-TRACEABLE CREATININE METHODS. https://jasn.asnjournals.org/content/early//ASN.651767 2682 Performed By: #### B MP #### [facility] [address] [place] [address] Glucose [Mass/Vol] 94 mg/dL Normal 74 - 99 [facility] Comment on above: Performed By: #### B MP #### [facility] [address] [place] [address] HCO3 (Bld) [Moles/Vol] 29 mmol/L Normal 21 - 32 [facility] Comment on above: Performed By: #### B MP #### [facility] [address] [place] [address] Potassium [Moles/Vol] 4.5 mmol/L Normal 3.5 - 5.3 [facility] Comment on above: Performed By: #### B MP #### [facility] [address] [place] [address] Sodium [Moles/Vol] 142 mmol/L Normal 136 - 145 [facility] Comment on above: Performed By: #### B MP #### [facility] [address] [place] [address] Urea nitrogen [Mass/Vol] 21 mg/dL Normal 6 - 23 [facility] Comment on above: Performed By: #### B MP #### [facility] [address] [place] [address] Blood Pressure Cuff Sizeon 0 10-16-2021 Blood Pressure Cuff Size Adult [facility] Work Phone: CBCon 10-16-2021 Erythrocyte distribution width (RBC) [Ratio] 13.5 % Normal 11.5 - 14.5 [facility] Comment on above: Performed By: #### C BC #### [facility] [address] [place] [address] Hematocrit (Bld) [Volume fraction] 39.0 % Normal 36.0 - 46.0 [facility] Comment on above: Performed By: #### C BC #### [facility] [address] [place] [address] Hemoglobin (Bld) [Mass/Vol] 12.0 g/dL Normal 12.0 - 16.0 [facility] Comment on above: Performed By: #### C BC #### [facility] [address] [place] [address] MCHC (RBC) [Mass/Vol] 30.8 g/dL Low 32.0 - 36.0 [facility] Comment on above: Performed By: #### C BC #### [facility] [address] [place] [address] MCV (RBC) [Entitic vol] 107 fL High 80 - 100 [facility] Comment on above: Performed By: #### C BC #### [facility] [address] [place] [address] NUCLEATED RBC 0.0 /100 WBC Normal 0.0-0.0 [facility] Comment on above: Performed By: #### C BC #### [facility] [address] [place] [address] Platelets (Bld) [#/Vol] 235 10*3/uL Normal 150 - 450 [facility] Comment on above: Performed By: #### C BC #### [facility] [address] [place] [address] RBC 3.64 x10E12/L Low 4.00 - 5.20 [facility] Comment on above: Performed By: #### C BC #### [facility] [address] [place] [address] WBC (Bld) [#/Vol] 6.6 10*3/uL Normal 4.4 - 11.3 [facility] Comment on above: Performed By: #### C BC #### [facility] [address] [place] [address] Laboratory - Chemistry and C hemistry - challengeon 10-16-2021 Anion gap [Moles/Vol] 15 mmol/L 10 - 20 [facility] Work Phone: Calcium [Mass/Vol] 10.3 mg/dL 8.6 - 10.6 [facility] Work Phone: Chloride [Moles/Vol] 103 mmol/L 98 - 107 [facility] Work Phone: CO2 [Moles/Vol] 29 mmol/L 21 - 32 [facility] Work Phone: Creatinine [Mass/Vol] 1.22 mg/dL above high threshold See Below [facility] Work Phone: Comment on above: Reference Range: 0.5 0 - 1.05 Glucose [Mass/Vol] 94 mg/dL 74 - 99 [facility] Work Phone: Potassium [Moles/Vol] 4.5 mmol/L 3.5 - 5.3 [facility] Work Phone: Sodium [Moles/Vol] 142 mmol/L 136 - 145 [facility] Work Phone: Urea nitrogen [Mass/Vol] 21 mg/dL 6 - 23 [facility] Work Phone: Laboratory - Hematology and Cell countson 10-16-2021 Erythrocyte distribution width (RBC) [Ratio] 13.5 % See Below [facility] Work Phone: Comment on above: Reference Range: 11. 5 - 14.5 Hematocrit (Bld) [Volume fraction] 39.0 % See Below [facility] Work Phone: Comment on above: Reference Range: 36. 0 - 46.0 Hemoglobin (Bld) [Mass/Vol] 12.0 g/dL See Below [facility] Work Phone: Comment on above: Reference Range: 12. 0 - 16.0 MCHC (RBC) [Mass/Vol] 30.8 g/dL below low threshold See Below [facility] Work Phone: Comment on above: Reference Range: 32. 0 - 36.0 MCV (RBC) [Entitic vol] 107 fL above high threshold 80 - 100 [facility] Work Phone: Platelets (Bld) [#/Vol] 235 10*3/uL 150 - 450 [facility] Work Phone: RBC (Bld) [#/Vol] 3.64 {x10E12/L} below low threshold See Below [facility] Work Phone: Comment on above: Reference Range: 4.0 0 - 5.20 WBC (Bld) [#/Vol] 6.6 10*3/uL 4.4 - 11.3 [facility] Work Phone: No Panel Informationon 10-16 0.0 {/100_WBC} 0.0-0.0 [facility] Work Phone: 43 {mL/min/1.73m2} Abnormal >90 [facility] Work Phone: Comment on above: CALCULATIONS OF ALVARO MATED GFR ARE PERFORMED USING THE 2020 CKD-EPI STUDY REFIT EQUATION WITHOUT THE RACE VARIABLE FOR THE IDMS-TRACEABLE CREATININE METHODS.https://jasn.asnjournals.org/content// N.4629673020 Blood Pressure Cuff Sizeon 0 08-14-2021 Blood Pressure Cuff Size Adult [facility] [place] Work Phone: Blood Pressure Cuff Sizeon 0 04-11-2021 Blood Pressure Cuff Size Adult -[facility] Work Phone: Blood Pressure Cuff Sizeon 0 04-05-2021 Blood Pressure Cuff Size Adult [facility] Work Phone: Echocardiogramon 04-04-2021 Echocardiography Please click on the link to view the study images Normal [facility] Work Phone: Complete Blood Count + Diffe rentialon 04-03-2021 Basophils/100 WBC (Bld) 1.2 % 0.0 - 2.0 [facility] Work Phone: [phone] Erythrocyte distribution width (RBC) [Ratio] 14.8 % above high threshold See Below [facility] Work Phone: [phone] Comment on above: Reference Range: 11. 5 - 14.5 Hematocrit (Bld) [Volume fraction] 37.3 % See Below [facility] Work Phone: Comment on above: Reference Range: 36. 0 - 46.0 Hemoglobin (Bld) [Mass/Vol] 11.8 g/dL below low threshold See Below [facility] Work Phone: Comment on above: Reference Range: 12. 0 - 16.0 Lymphocytes/100 WBC (Bld) 39.5 % See Below [facility] Work Phone: Comment on above: Reference Range: 13. 0 - 44.0 MCHC (RBC) [Mass/Vol] 31.6 g/dL below low threshold See Below [facility] Work Phone: [phone] Comment on above: Reference Range: 32. 0 - 36.0 MCV (RBC) [Entitic vol] 105 fL above high threshold 80 - 100 [facility] Work Phone: [phone] Monocytes/100 WBC (Bld) 7.0 % 2.0 - 10.0 [facility] Work Phone: [phone] Neutrophils/100 WBC (Bld) 49.1 % See Below [facility] Work Phone: [phone] Comment on above: Reference Range: 40. 0 - 80.0 Platelets (Bld) [#/Vol] 223 10*3/uL 150 - 450 [facility] Work Phone: RBC (Bld) [#/Vol] 3.56 {x10E12/L} below low threshold See Below [facility] Work Phone: [phone] Comment on above: Reference Range: 4.0 0 - 5.20 WBC (Bld) [#/Vol] 5.8 10*3/uL 4.4 - 11.3 [facility] Work Phone: Complete Blood Count + Differential 0.07 {x10E9/L} See Below [facility] Work Phone: Comment on above: Reference Range: 0.0 0 - 0.10 Complete Blood Count + Differential 0.17 {x10E9/L} See Below [facility] Work Phone: Comment on above: Reference Range: 0.0 0 - 0.40 Complete Blood Count + Differential 0.41 {x10E9/L} See Below [facility] Work Phone: Comment on above: Reference Range: 0.0 5 - 0.80 Complete Blood Count + Differential 2.30 {x10E9/L} See Below [facility] Work Phone: Comment on above: Reference Range: 0.8 0 - 3.00 Complete Blood Count + Differential 2.86 {x10E9/L} See Below [facility] Work Phone: Comment on above: Reference Range: 1.6 0 - 5.50 Complete Blood Count + Differential 2.9 % 0.0 - 6.0 [facility] Work Phone: Complete Blood Count + Differential 0.3 % 0.0 - 0.9 [facility] Work Phone: Comment on above: Immature Granulocyte Count (IG) includes promyelocytes, myelocytes and metamyelocytes but does not include bands. Percent differential counts (%) should be interpreted in the context of the absolute cell counts (cells/L). Complete Blood Count + Differential 0.0 {/100_WBC} 0.0-0.0 [facility] Work Phone: Laboratory - Chemistry and C hemistry - challengeon 04-03-2021 Albumin BCP dye [Mass/Vol] 3.7 g/dL 3.4 - 5.0 [facility] Work Phone: ALP [Catalytic activity/Vol] 51 U/L 33 - 136 [facility] Work Phone: ALT With P-5'-P [Catalytic activity/Vol] 14 U/L 7 - 45 [facility] Work Phone: Comment on above: Patients treated wit h Sulfasalazine may generate falsely decreased results for ALT. Anion gap [Moles/Vol] 15 mmol/L 10 - 20 [facility] Work Phone: AST With P-5'-P [Catalytic activity/Vol] 18 U/L 9 - 39 [facility] Work Phone: Bilirubin [Mass/Vol] 0.5 mg/dL 0.0 - 1.2 [facility] Work Phone: Calcium [Mass/Vol] 9.3 mg/dL 8.6 - 10.6 [facility] Work Phone: Chloride [Moles/Vol] 107 mmol/L 98 - 107 [facility] Work Phone: CO2 [Moles/Vol] 27 mmol/L 21 - 32 [facility] Work Phone: Creatinine [Mass/Vol] 1.08 mg/dL above high threshold See Below [facility] Work Phone: Comment on above: Reference Range: 0.5 0 - 1.05 Glucose [Mass/Vol] 85 mg/dL 74 - 99 [facility] Work Phone: Potassium [Moles/Vol] 4.8 mmol/L 3.5 - 5.3 [facility] Work Phone: Protein [Mass/Vol] 6.5 g/dL 6.4 - 8.2 [facility] Work Phone: Sodium [Moles/Vol] 144 mmol/L 136 - 145 [facility] Work Phone: Urea nitrogen [Mass/Vol] 23 mg/dL 6 - 23 [facility] Work Phone: Lipid Panelon 04-03-2021 Cholesterol [Mass/Vol] 146 mg/dL 0 - 199 [facility] Work Phone: Comment on above: . AGE DESIRABLE BORD MEL HIGH HIGH 0-19 Y 0 - 169 170 - 199 >/= 200 20-24 Y 0 - 189 190 - 224 >/= 225 >24 Y 0 - 199 200 - 239 >/= 240 All ranges are based on fasting samples. Specific therapeutic targets will vary based on patient-specific cardiac risk.. Pediatric guidelines reference:Pediatrics 2011, 128(S5). Adult guidelines reference: NCEP ATPIII Guidelines, LAURA 2001, 258:2486-97. Venipuncture immediately after or during the administration of Metamizole may lead to falsely low results. Testing should be performed immediately prior to Metamizole dosing. Cholesterol in HDL [Mass/Vol] 51.2 mg/dL [facility] Work Phone: Comment on above: . AGE VERY LOW LOW N ORMAL HIGH 0-19 Y < 35 < 40 40-45 ---- 20- 24 Y ---- < 40 >45 ---- >24 Y ---- < 40 40-60 >60. Cholesterol in LDL [Mass/Vol] 75 mg/dL 0 - 99 [facility] Work Phone: Comment on above: . NEAR BORD AGE TORI RABLE OPTIMAL HIGH HIGH VERY HIGH 0-19 Y 0 - 109 --- 110-129 >/= 130 ---- 20-24 Y 0 - 119 --- 120-159 >/= 160 ---- >24 Y 0 - 99 100-129 130-159 160-189 >/=190. Cholesterol.total/Cho lesterol in HDL [Mass ratio] 2.9 {ratio} [facility] Work Phone: Comment on above: REF VALUESDESIRABLE < 3.4HIGH RISK > 5.0 Triglyceride [Mass/Vol] 98 mg/dL 0 - 149 [facility] Work Phone: Comment on above: . AGE DESIRABLE BORD MEL HIGH HIGH VERY HIGH 0 D-90 D 19 - 174 ---- ---- ----91 D- 9 Y 0 - 74 75 - 99 >/= 100 ---- 10-19 Y 0 - 89 90 - 129 >/= 130 ---- 20-24 Y 0 - 114 115 - 149 >/= 150 ---- >24 Y 0 - 149 150 - 199 200- 499 >/= 500. Venipuncture immediately after or during the administration of Metamizole may lead to falsely low results. Testing should be performed immediately prior to Metamizole dosing. Lipid Panel 20 mg/dL 0 - 40 [facility] Work Phone: No Panel Informationon 04-03 50 {mL/min/1.73m2} Abnormal >90 [facility] Work Phone: Comment on above: CALCULATIONS OF ALVARO MATED GFR ARE PERFORMED USING THE 2020 CKD-EPI STUDY REFIT EQUATION WITHOUT THE RACE VARIABLE FOR THE IDMS-TRACEABLE CREATININE METHODS.https://jasn.asnjournals.org/content/early/ N.2341377554 Blood Pressure Cuff Sizeon 0 03-08-2021 Fall risk assessment a) No falls within the last year [facility] Work Phone: Tobacco use status CP b) No [facility] Work Phone: Blood Pressure Cuff Size Adult [facility] Work Phone: Laboratory - Chemistry and C hemistry - challengeon 01-15-2021 Anion gap [Moles/Vol] 12 mmol/L 10 - 20 [facility] Work Phone: Calcium [Mass/Vol] 9.8 mg/dL 8.6 - 10.6 [facility] Work Phone: Chloride [Moles/Vol] 106 mmol/L 98 - 107 [facility] Work Phone: CO2 [Moles/Vol] 27 mmol/L 21 - 32 [facility] Work Phone: Creatinine [Mass/Vol] 1.08 mg/dL above high threshold See Below [facility] Work Phone: Comment on above: Reference Range: 0.5 0 - 1.05 Glucose [Mass/Vol] 90 mg/dL 74 - 99 [facility] Work Phone: Potassium [Moles/Vol] 4.6 mmol/L 3.5 - 5.3 [facility] Work Phone: Sodium [Moles/Vol] 140 mmol/L 136 - 145 [facility] Work Phone: Urea nitrogen [Mass/Vol] 23 mg/dL 6 - 23 [facility] Work Phone: Laboratory - Hematology and Cell countson 01-15-2021 Erythrocyte distribution width (RBC) [Ratio] 13.2 % See Below [facility] Work Phone: Comment on above: Reference Range: 11. 5 - 14.5 Hematocrit (Bld) [Volume fraction] 36.9 % See Below [facility] Work Phone: Comment on above: Reference Range: 36. 0 - 46.0 Hemoglobin (Bld) [Mass/Vol] 11.5 g/dL below low threshold See Below [facility] Work Phone: Comment on above: Reference Range: 12. 0 - 16.0 MCHC (RBC) [Mass/Vol] 31.2 g/dL below low threshold See Below [facility] Work Phone: Comment on above: Reference Range: 32. 0 - 36.0 MCV (RBC) [Entitic vol] 106 fL above high threshold 80 - 100 [facility] Work Phone: Platelets (Bld) [#/Vol] 233 10*3/uL 150 - 450 [facility] Work Phone: RBC (Bld) [#/Vol] 3.47 {x10E12/L} below low threshold See Below [facility] Work Phone: Comment on above: Reference Range: 4.0 0 - 5.20 WBC (Bld) [#/Vol] 7.5 10*3/uL 4.4 - 11.3 [facility] Work Phone: No Panel Informationon 01-15 58 {mL/min/1.73m2} Abnormal >60 [facility] Work Phone: Comment on above: CALCULATIONS OF ALVARO MATED GFR ARE PERFORMED USING THE MDRD STUDY EQUATION FOR THE IDMS-TRACEABLE CREATININE METHODS. CLIN CHEM 2007;53:766-72 48 {mL/min/1.73m2} Abnormal >60 [facility] Work Phone: 0.0 {/100_WBC} 0.0-0.0 [facility] Work Phone: Tobacco Screening.on 021 Tobacco use status CPHS b) No [facility] Work Phone: IO UA (automated w/o microsc opy)on 10-29-2020 Protein (U) [Mass/Vol] Trace [facility] Work Phone: IO UA (automated w/o microscopy) Negative [facility] Work Phone: IO UA (automated w/o microscopy) Normal (0.2-1.0 mg/dl) [facility] Work Phone: IO UA (automated w/o microscopy) 6.0 1 [facility] Work Phone: IO UA (automated w/o microscopy) 1.020 1 [facility] Work Phone: IO UA (automated w/o microscopy) Clear [facility] Work Phone: IO UA (automated w/o microscopy) Yellow [facility] Work Phone: Tobacco Screening.on 021 Last menstrual period start date hyst [facility] Work Phone: Tobacco use status CPHS b) No [facility] Work Phone: Laboratory - Chemistry and C hemistry - challengeon 10-24-2020 Anion gap [Moles/Vol] 15 mmol/L 10 - 20 [facility] Work Phone: Calcium [Mass/Vol] 9.5 mg/dL 8.6 - 10.6 [facility] Work Phone: Chloride [Moles/Vol] 103 mmol/L 98 - 107 [facility] Work Phone: CO2 [Moles/Vol] 25 mmol/L 21 - 32 [facility] Work Phone: Creatinine [Mass/Vol] 0.88 mg/dL See Below [facility] Work Phone: Comment on above: Reference Range: 0.5 0 - 1.05 Glucose [Mass/Vol] 102 mg/dL above high threshold 74 - 99 [facility] Work Phone: Potassium [Moles/Vol] 4.5 mmol/L 3.5 - 5.3 [facility] Work Phone: Sodium [Moles/Vol] 138 mmol/L 136 - 145 [facility] Work Phone: Urea nitrogen [Mass/Vol] 19 mg/dL 6 - 23 [facility] Work Phone: Laboratory - Hematology and Cell countson 10-24-2020 Erythrocyte distribution width (RBC) [Ratio] 14.5 % See Below [facility] Work Phone: Comment on above: Reference Range: 11. 5 - 14.5 Hematocrit (Bld) [Volume fraction] 36.8 % See Below [facility] Work Phone: Comment on above: Reference Range: 36. 0 - 46.0 Hemoglobin (Bld) [Mass/Vol] 11.5 g/dL below low threshold See Below [facility] Work Phone: Comment on above: Reference Range: 12. 0 - 16.0 MCHC (RBC) [Mass/Vol] 31.3 g/dL below low threshold See Below [facility] Work Phone: Comment on above: Reference Range: 32. 0 - 36.0 MCV (RBC) [Entitic vol] 105 fL above high threshold 80 - 100 [facility] Work Phone: Platelets (Bld) [#/Vol] 450 10*3/uL 150 - 450 [facility] Work Phone: RBC (Bld) [#/Vol] 3.52 {x10E12/L} below low threshold See Below [facility] Work Phone: Comment on above: Reference Range: 4.0 0 - 5.20 WBC (Bld) [#/Vol] 9.1 10*3/uL 4.4 - 11.3 [facility] Work Phone: No Panel Informationon 10-24 0.0 {/100_WBC} 0.0-0.0 [facility] Work Phone: >60 >60 [facility] Work Phone: Comment on above: CALCULATIONS OF ALVARO MATED GFR ARE PERFORMED USING THE MDRD STUDY EQUATION FOR THE IDMS-TRACEABLE CREATININE METHODS. CLIN CHEM 2007;53:766-72 Comp Panel with Mg Reflexon 10-22-2020 ALP [Catalytic activity/Vol] 73 U/L Normal 38-126 [facility] Comment on above: Performed By: #### Fernando Hammond CMP3M #### [employer] [address] [place] [address] ALT [Catalytic activity/Vol] 23 U/L Normal 0-34 [facility] Comment on above: Result Comment: The ALT test is performed by an updated assay method. Please note that the reference intervals have been changed and are now sex specific. Performed By: #### Fernando Hammond CMP3M #### [employer] [facility] [address] [place] [address] AST [Catalytic activity/Vol] 49 U/L High 15-46 [facility] Comment on above: Performed By: #### Fernando Hammond CMP3M #### [employer] [facility] [address] [place] [address] Calcium [Mass/Vol] 10.0 mg/dL Normal 8.4-10.4 [facility] Comment on above: Performed By: #### Fernando Hammond CMP3M #### [employer] [facility] [address] [place] [address] Glucose [Mass/Vol] 108 mg/dL High 70-100 [facility] Comment on above: Performed By: #### M G3, CMP3M #### [facility] [address] [place] [address] Protein [Mass/Vol] 6.9 g/dL Normal 6.3-8.2 [facility] Comment on above: Performed By: #### M G3, CMP3M #### [facility] [address] [place] [address] Urea nitrogen [Mass/Vol] 16 mg/dL Normal 9-20 [facility] Comment on above: Performed By: #### M G3, CMP3M #### [facility] [address] [place] [address] Anion gap [Moles/Vol] 7 mmol/L Normal 3-13 [facility] Comment on above: Performed By: #### M G3, CMP3M #### [facility] [address] [place] [address] Bilirubin [Mass/Vol] 0.7 mg/dL Normal 0.2-1.3 [facility] Comment on above: Performed By: #### M G3, CMP3M #### [facility] [address] [place] [address] CO2 [Moles/Vol] 25 mmol/L Normal 22-30 [facility] Comment on above: Performed By: #### M G3, CMP3M #### [facility] [address] [place] [address] Creatinine [Mass/Vol] 0.69 mg/dL Normal 0.52-1.25 [facility] Comment on above: Performed By: #### M G3, CMP3M #### [facility] [address] [place] [address] GFR/1.73 sq M.predicted among blacks MDRD (S/P/Bld) [Vol rate/Area] mL/min/{1.73_m2} Normal >60 [facility] Comment on above: Performed By: #### M G3, CMP3M #### [facility] [address] [place] [address] GFR/1.73 sq M.predicted among non-blacks MDRD (S/P/Bld) [Vol rate/Area] 79.6 mL/min/{1.73_m2} Normal >60 [facility] Comment on above: Result Comment: KDIG O guidelines provide the following GFR categories: Stage GFR(ml/min/1.73 m2) Terms G1 >=90 Normal or high G2 60-89 Mildly decreased* G3a 45-59 Mildly to moderately decreased G3b 30-44 Moderately to severely decreased G4 15-29 Severely decreased G5 <15 Kidney failure *Relative to young adult level. In the absence of evidence of kidney damage, neither GFR category G1 nor G2 fulfill the criteria for CKD. The CKD-EPI equation is validated in individuals 18 years of age and older. Currently the best equation for estimating glomerular filtration rate (GFR) from serum creatinine in children is the Bedside Corea equation. It is less accurate in patients with extremes of muscle mass, restriction of dietary protein, ingestion of creatine, extra-renal metabolism of creatinine, or treatment with medications that affect renal tubular creatinine secretion. Performed By: #### Fernando Hammond CMP3M #### [facility] [address] [place] [address] Albumin [Mass/Vol] 3.4 g/dL Low 3.5-5.0 [facility] Comment on above: Performed By: #### Fernando Hammond CMP3M #### [facility] [address] [place] [address] Chloride [Moles/Vol] 105 mmol/L Normal 98-107 [facility] Comment on above: Performed By: #### Fernando Hammond CMP3M #### [facility] [address] [place] [address] Potassium [Moles/Vol] 5.3 mmol/L High 3.5-5.1 [facility] Comment on above: Performed By: #### eFrnando Hammond CMP3M #### [facility] [address] [place] [address] Sodium [Moles/Vol] 137 mmol/L Normal 135-145 [facility] Comment on above: Performed By: #### Fernando Hammond CMP3M #### [facility] [address] [place] [address] Hemogram w/ Autod[employer]on 10-22 Abs Baso Cnt 0.1 10*3/uL Normal 0.0-0.2 [facility] Comment on above: Performed By: #### Fernando Hammond CMP3M #### [facility] [address] [place] [address] Abs Neutrophile Cnt 6.0 10*3/uL Normal 1.8-7.0 [facility] Comment on above: Performed By: #### Fernando Hammond CMP3M #### [facility] [address] [place] [address] Basophils/100 WBC (Bld) 0.8 % Normal 0.0-2.0 [facility] Comment on above: Performed By: #### Fernando Hammond CMP3M #### [facility] [address] [place] [address] Eosinophils (Bld) [#/Vol] 0.1 10*3/uL Normal 0.0-0.5 [facility] Comment on above: Performed By: #### Fernando Hammond CMP3M #### [facility] [address] [place] [address] Eosinophils/100 WBC (Bld) 1.5 % Normal 1.0-6.0 [facility] Comment on above: Performed By: #### Fernando Hammond CMP3M #### [facility] [address] [place] [address] Erythrocyte distribution width (RBC) [Ratio] 13.9 % Normal 11.5-14.5 [facility] Comment on above: Performed By: #### Fernando Hammond CMP3M #### [facility] [address] [place] [address] Granulocytes/100 WBC (Bld) 66.3 % Normal 40.0-80.0 [facility] Comment on above: Performed By: #### Fernando Hammond CMP3M #### [facility] [address] [place] [address] Hematocrit (Bld) [Volume fraction] 35.4 % Normal 35.0-47.0 [facility] Comment on above: Performed By: #### Fernando Hammond CMP3M #### [facility] [address] [place] [address] Hemoglobin (Bld) [Mass/Vol] 12.4 g/dL Normal 11.7-16.0 [facility] Comment on above: Performed By: #### Fernando Hammond CMP3M #### [facility] [address] [place] [address] Lymphocytes (Bld) [#/Vol] 2.2 10*3/uL Normal 1.0-4.3 [facility] Comment on above: Performed By: #### Fernando Hammond CMP3M #### [facility] [address] [place] [address] Lymphocytes/100 WBC (Bld) 23.6 % Normal 20.0-40.0 [facility] Comment on above: Performed By: #### Fernando Hammond CMP3M #### [facility] [address] [place] [address] MCH (RBC) [Entitic mass] 34.3 pg High 26.0-34.0 [facility] Comment on above: Performed By: #### Fernando Hammond CMP3M #### [facility] [address] [place] [address] MCHC 34.9 % Normal 32.0-36.0 [facility] Comment on above: Performed By: #### Fernando Hammond CMP3M #### [facility] [address] [place] [address] MCV (RBC) [Entitic vol] 98.3 fL High 79.0-98.0 [facility] Comment on above: Performed By: #### Fernando Hammond CMP3M #### [facility] [address] [place] [address] Monocytes (Bld) [#/Vol] 0.7 10*3/uL Normal 0.0-0.8 [facility] Comment on above: Performed By: #### Fernando Hammond CMP3M #### [facility] [address] [place] [address] Monocytes/100 WBC (Bld) 7.8 % Normal 2.0-10.0 [facility] Comment on above: Performed By: #### Fernando Hammond CMP3M #### [facility] [address] [place] [address] Platelet mean volume (Bld) [Entitic vol] 7.0 fL Low 7.4-10.4 [facility] Comment on above: Performed By: #### Fernando Hammond CMP3M #### [facility] [address] [place] [address] Platelets (Bld) [#/Vol] 301 10*3/uL Normal 140-440 [facility] Comment on above: Performed By: #### Fernando Hammond CMP3M #### [facility] [address] [place] [address] RBC (Bld) [#/Vol] 3.60 10*6/uL Low 3.80-5.20 [facility] Comment on above: Performed By: #### Fernando Hammond CMP3M #### [facility] [address] [place] [address] WBC (Bld) [#/Vol] 9.1 10*3/uL Normal 3.6-10.7 [facility] Comment on above: Performed By: #### Fernando Hammond CMP3M #### [facility] [address] [place] [address] Comp Panel with Mg Reflexon 10-21-2020 ALP [Catalytic activity/Vol] 72 U/L Normal 38-126 [facility] Comment on above: Performed By: #### Fernando Hammond CMP3M #### [facility] [address] [place] [address] ALT [Catalytic activity/Vol] 14 U/L Normal 0-34 [facility] Comment on above: Result Comment: The ALT test is performed by an updated assay method. Please note that the reference intervals have been changed and are now sex specific. Performed By: #### Fernando Hammond CMP3M #### [facility] [address] [place] [address] Calcium [Mass/Vol] 9.3 mg/dL Normal 8.4-10.4 [facility] Comment on above: Performed By: #### Fernando Hammond CMP3M #### [facility] [address] [place] [address] Glucose [Mass/Vol] 101 mg/dL High 70-100 [facility] Comment on above: Performed By: #### Fernando Hammond CMP3M #### [facility] [address] [place] [address] Urea nitrogen [Mass/Vol] 11 mg/dL Normal 9-20 [facility] Comment on above: Performed By: #### Fernando Hammond CMP3M #### [facility] [address] [place] [address] Anion gap [Moles/Vol] 5 mmol/L Normal 3-13 [facility] Comment on above: Performed By: #### Fernando Hammond CMP3M #### [facility] [address] [place] [address] AST [Catalytic activity/Vol] 22 U/L Normal 15-46 [facility] Comment on above: Performed By: #### Fernando Hammond CMP3M #### [facility] [address] [place] [address] Bilirubin [Mass/Vol] 0.6 mg/dL Normal 0.2-1.3 [facility] Comment on above: Performed By: #### Fernando Hammond CMP3M #### [facility] [address] [place] [address] CO2 [Moles/Vol] 27 mmol/L Normal 22-30 [facility] Comment on above: Performed By: #### Fernando Hammond CMP3M #### [facility] [address] [place] [address] Creatinine [Mass/Vol] 0.55 mg/dL Normal 0.52-1.25 [facility] Comment on above: Performed By: #### Fernando Hammond CMP3M #### [facility] [address] [place] [address] GFR/1.73 sq M.predicted among blacks MDRD (S/P/Bld) [Vol rate/Area] mL/min/{1.73_m2} Normal >60 [facility] Comment on above: Performed By: #### eFrnando G3 CMP3M #### [facility] [address] [place] [address] GFR/1.73 sq M.predicted among non-blacks MDRD (S/P/Bld) [Vol rate/Area] 85.8 mL/min/{1.73_m2} Normal >60 [facility] Comment on above: Result Comment: KDIG O guidelines provide the following GFR categories: Stage GFR(ml/min/1.73 m2) Terms G1 >=90 Normal or high G2 60-89 Mildly decreased* G3a 45-59 Mildly to moderately decreased G3b 30-44 Moderately to severely decreased G4 15-29 Severely decreased G5 <15 Kidney failure *Relative to young adult level. In the absence of evidence of kidney damage, neither GFR category G1 nor G2 fulfill the criteria for CKD. The CKD-EPI equation is validated in individuals 18 years of age and older. Currently the best equation for estimating glomerular filtration rate (GFR) from serum creatinine in children is the Bedside Corea equation. It is less accurate in patients with extremes of muscle mass, restriction of dietary protein, ingestion of creatine, extra-renal metabolism of creatinine, or treatment with medications that affect renal tubular creatinine secretion. Performed By: #### Fernando Hammond CMP3M #### [facility] [address] [place] [address] Protein [Mass/Vol] 6.5 g/dL Normal 6.3-8.2 [facility] Comment on above: Performed By: #### Fernando G3 CMP3M #### [facility] [address] [place] [address] Potassium [Moles/Vol] 4.6 mmol/L Normal 3.5-5.1 [facility] Comment on above: Performed By: #### Fernando G3, CMP3M #### [facility] [address] [place] [address] Sodium [Moles/Vol] 138 mmol/L Normal 135-145 [facility] Comment on above: Performed By: #### Fernando G3, CMP3M #### [facility] [address] [place] [address] Albumin [Mass/Vol] 3.2 g/dL Low 3.5-5.0 [facility] Comment on above: Performed By: #### Fernando G3, CMP3M #### [facility] [address] [place] [address] Chloride [Moles/Vol] 107 mmol/L Normal 98-107 [facility] Comment on above: Performed By: #### Fernando G3, CMP3M #### [facility] [address] [place] [address] Hemogram w/ Autodiffon 10-21 Abs Baso Cnt 0.0 10*3/uL Normal 0.0-0.2 [facility] Comment on above: Performed By: #### M G3, CMP3M #### [facility] [address] [place] [address] Abs Neutrophile Cnt 8.4 10*3/uL High 1.8-7.0 [facility] Comment on above: Performed By: #### M G3, CMP3M #### [facility] [address] [place] [address] Basophils/100 WBC (Bld) 0.4 % Normal 0.0-2.0 [facility] Comment on above: Performed By: #### M G3, CMP3M #### [facility] [address] [place] [address] Eosinophils (Bld) [#/Vol] 0.2 10*3/uL Normal 0.0-0.5 [facility] Comment on above: Performed By: #### M G3, CMP3M #### [facility] [address] [place] [address] Eosinophils/100 WBC (Bld) 1.3 % Normal 1.0-6.0 [facility] Comment on above: Performed By: #### Fernando G3, CMP3M #### [facility] [address] [place] [address] Erythrocyte distribution width (RBC) [Ratio] 13.7 % Normal 11.5-14.5 [facility] Comment on above: Performed By: #### M G3, CMP3M #### [facility] [address] [place] [address] Granulocytes/100 WBC (Bld) 72.7 % Normal 40.0-80.0 [facility] Comment on above: Performed By: #### M G3, CMP3M #### [facility] [address] [place] [address] Hematocrit (Bld) [Volume fraction] 34.3 % Low 35.0-47.0 [facility] Comment on above: Performed By: #### Fernando G3, CMP3M #### [facility] [address] [place] [address] Hemoglobin (Bld) [Mass/Vol] 11.5 g/dL Low 11.7-16.0 [facility] Comment on above: Performed By: #### M G3, CMP3M #### [facility] [address] [place] [address] Lymphocytes (Bld) [#/Vol] 2.0 10*3/uL Normal 1.0-4.3 [facility] Comment on above: Performed By: #### M G3, CMP3M #### [facility] [address] [place] [address] Lymphocytes/100 WBC (Bld) 17.4 % Low 20.0-40.0 [facility] Comment on above: Performed By: #### M G3, CMP3M #### [facility] [address] [place] [address] MCH (RBC) [Entitic mass] 33.1 pg Normal 26.0-34.0 [facility] Comment on above: Performed By: #### M G3, CMP3M #### [facility] [address] [place] [address] MCHC 33.5 % Normal 32.0-36.0 [facility] Comment on above: Performed By: #### Fernando G3, CMP3M #### [facility] [address] [place] [address] MCV (RBC) [Entitic vol] 98.7 fL High 79.0-98.0 [facility] Comment on above: Performed By: #### M G3, CMP3M #### [facility] [address] [place] [address] Monocytes (Bld) [#/Vol] 0.9 10*3/uL High 0.0-0.8 [facility] Comment on above: Performed By: #### M G3, CMP3M #### [facility] [address] [place] [address] Monocytes/100 WBC (Bld) 8.2 % Normal 2.0-10.0 [facility] Comment on above: Performed By: #### M G3, CMP3M #### [facility] [address] [place] [address] Platelet mean volume (Bld) [Entitic vol] 7.6 fL Normal 7.4-10.4 [facility] Comment on above: Performed By: #### M G3, CMP3M #### [facility] [address] [place] [address] Platelets (Bld) [#/Vol] 284 10*3/uL Normal 140-440 [facility] Comment on above: Performed By: #### Fernando G3, CMP3M #### [facility] [address] [place] [address] RBC (Bld) [#/Vol] 3.47 10*6/uL Low 3.80-5.20 [facility] Comment on above: Performed By: #### Fernando G3, CMP3M #### [facility] [address] [place] [address] WBC (Bld) [#/Vol] 11.5 10*3/uL High 3.6-10.7 [facility] Comment on above: Performed By: #### Fernando G3, CMP3M #### [facility] [address] [place] [address] CULTURE BLOODon 10-20-2020 Microscopic examination of blood, culture CULTURE BLOOD --> Status: F No growth at 5 days. Normal [facility] Comment on above: Performed By: #### Fernando G3, CMP3M #### [facility] [address] [place] [address] CULTURE BLOOD (Two)on 2020 Microscopic examination of blood, culture CULTURE BLOOD (Two) --> Status: F No growth at 5 days. Normal [facility] Comment on above: Performed By: #### Fernando Hammond, CMP3M #### [facility] [address] [place] [address] Comp Panel with Mg Reflexon 10-19-2020 ALP [Catalytic activity/Vol] 70 U/L Normal 38-126 [facility] Comment on above: Performed By: #### Fernando G3, CMP3M #### [facility] [address] [place] [address] ALT [Catalytic activity/Vol] 16 U/L Normal 0-34 [facility] Comment on above: Result Comment: The ALT test is performed by an updated assay method. Please note that the reference intervals have been changed and are now sex specific. Performed By: #### Fernando Hammond CMP3M #### [facility] [address] [place] [address] Calcium [Mass/Vol] 8.3 mg/dL Low 8.4-10.4 [facility] Comment on above: Performed By: #### Fernando Hammond CMP3M #### [facility] [address] [place] [address] Glucose [Mass/Vol] 108 mg/dL High 70-100 [facility] Comment on above: Performed By: #### Fernando Hammond CMP3M #### [facility] [address] [place] [address] Urea nitrogen [Mass/Vol] 11 mg/dL Normal 9-20 [facility] Comment on above: Performed By: #### Fernando Hammond CMP3M #### [facility] [address] [place] [address] Anion gap [Moles/Vol] 2 mmol/L Low 3-13 [facility] Comment on above: Performed By: #### Fernando Hammond CMP3M #### [facility] [address] [place] [address] AST [Catalytic activity/Vol] 35 U/L Normal 15-46 [facility] Comment on above: Performed By: #### Fernando Hammond CMP3M #### [facility] [address] [place] [address] Bilirubin [Mass/Vol] 0.8 mg/dL Normal 0.2-1.3 [facility] Comment on above: Performed By: #### Fernando Hammond CMP3M #### [facility] [address] [place] [address] CO2 [Moles/Vol] 31 mmol/L High 22-30 [facility] Comment on above: Performed By: #### Fernando Hammond CMP3M #### [facility] [address] [place] [address] Creatinine [Mass/Vol] 0.48 mg/dL Low 0.52-1.25 [facility] Comment on above: Performed By: #### Fernando Hammond CMP3M #### [facility] [address] [place] [address] GFR/1.73 sq M.predicted among blacks MDRD (S/P/Bld) [Vol rate/Area] mL/min/{1.73_m2} Normal >60 [facility] Comment on above: Performed By: #### Fernando Hammond CMP3M #### [facility] [address] [place] [address] GFR/1.73 sq M.predicted among non-blacks MDRD (S/P/Bld) [Vol rate/Area] 89.7 mL/min/{1.73_m2} Normal >60 [facility] Comment on above: Result Comment: KDIG O guidelines provide the following GFR categories: Stage GFR(ml/min/1.73 m2) Terms G1 >=90 Normal or high G2 60-89 Mildly decreased* G3a 45-59 Mildly to moderately decreased G3b 30-44 Moderately to severely decreased G4 15-29 Severely decreased G5 <15 Kidney failure *Relative to young adult level. In the absence of evidence of kidney damage, neither GFR category G1 nor G2 fulfill the criteria for CKD. The CKD-EPI equation is validated in individuals 18 years of age and older. Currently the best equation for estimating glomerular filtration rate (GFR) from serum creatinine in children is the Bedside Corea equation. It is less accurate in patients with extremes of muscle mass, restriction of dietary protein, ingestion of creatine, extra-renal metabolism of creatinine, or treatment with medications that affect renal tubular creatinine secretion. Performed By: #### Fernando Hammond CMP3M #### [facility] [address] [place] [address] Protein [Mass/Vol] 6.2 g/dL Low 6.3-8.2 [facility] Comment on above: Performed By: #### Fernando Hammond CMP3M #### [facility] [address] [place] [address] Chloride [Moles/Vol] 104 mmol/L Normal 98-107 [facility] Comment on above: Performed By: #### Fernando Hammond CMP3M #### [facility] [address] [place] [address] Potassium [Moles/Vol] 3.7 mmol/L Normal 3.5-5.1 [facility] Comment on above: Performed By: #### Fernando Hammond CMP3M #### [facility] [address] [place] [address] Sodium [Moles/Vol] 137 mmol/L Normal 135-145 [facility] Comment on above: Performed By: #### Fernando Hammond CMP3M #### [facility] [address] [place] [address] Albumin [Mass/Vol] 3.1 g/dL Low 3.5-5.0 [facility] Comment on above: Performed By: #### Fernando Hammond CMP3M #### [facility] [address] [place] [address] Hemogram w/ Autodiffon 10-19 Abs Baso Cnt 0.1 10*3/uL Normal 0.0-0.2 [facility] Comment on above: Performed By: #### Fernando Hammond CMP3M #### [facility] [address] [place] [address] Abs Neutrophile Cnt 5.6 10*3/uL Normal 1.8-7.0 [facility] Comment on above: Performed By: #### Fernando Hammond CMP3M #### [facility] [address] [place] [address] Basophils/100 WBC (Bld) 0.7 % Normal 0.0-2.0 [facility] Comment on above: Performed By: #### Fernando Hammond CMP3M #### [facility] [address] [place] [address] Eosinophils (Bld) [#/Vol] 0.1 10*3/uL Normal 0.0-0.5 [facility] Comment on above: Performed By: #### Fernando Hammond CMP3M #### [facility] [address] [place] [address] Eosinophils/100 WBC (Bld) 0.9 % Low 1.0-6.0 [facility] Comment on above: Performed By: #### Fernando Hammond CMP3M #### [facility] [address] [place] [address] Erythrocyte distribution width (RBC) [Ratio] 13.2 % Normal 11.5-14.5 [facility] Comment on above: Performed By: #### Fernando Hammond CMP3M #### [facility] [address] [place] [address] Granulocytes/100 WBC (Bld) 65.2 % Normal 40.0-80.0 [facility] Comment on above: Performed By: #### Fernando Hammond CMP3M #### [facility] [address] [place] [address] Hematocrit (Bld) [Volume fraction] 32.6 % Low 35.0-47.0 [facility] Comment on above: Performed By: #### Fernando Hammond CMP3M #### [facility] [address] [place] [address] Hemoglobin (Bld) [Mass/Vol] 11.2 g/dL Low 11.7-16.0 [facility] Comment on above: Performed By: #### Fernando Hammond CMP3M #### [facility] [address] [place] [address] Lymphocytes (Bld) [#/Vol] 1.7 10*3/uL Normal 1.0-4.3 [facility] Comment on above: Performed By: #### Fernando Hammond CMP3M #### [facility] [address] [place] [address] Lymphocytes/100 WBC (Bld) 19.6 % Low 20.0-40.0 [facility] Comment on above: Performed By: #### Fernando Hammond CMP3M #### [facility] [address] [place] [address] MCH (RBC) [Entitic mass] 33.6 pg Normal 26.0-34.0 [facility] Comment on above: Performed By: #### Fernando Hammond CMP3M #### [facility] [address] [place] [address] MCHC 34.3 % Normal 32.0-36.0 [facility] Comment on above: Performed By: #### Fernando Hammond CMP3M #### [facility] [address] [place] [address] MCV (RBC) [Entitic vol] 98.1 fL High 79.0-98.0 [facility] Comment on above: Performed By: #### Fernando Hammond CMP3M #### [facility] [address] [place] [address] Monocytes (Bld) [#/Vol] 1.2 10*3/uL High 0.0-0.8 [facility] Comment on above: Performed By: #### Fernando Hammond CMP3M #### [facility] [address] [place] [address] Monocytes/100 WBC (Bld) 13.6 % High 2.0-10.0 [facility] Comment on above: Performed By: #### Fernando Hammond CMP3M #### [facility] [address] [place] [address] Platelet mean volume (Bld) [Entitic vol] 7.5 fL Normal 7.4-10.4 [facility] Comment on above: Performed By: #### Fernando Hammond CMP3M #### [facility] [address] [place] [address] Platelets (Bld) [#/Vol] 231 10*3/uL Normal 140-440 [facility] Comment on above: Performed By: #### Fernando Hammond CMP3M #### [facility] [address] [place] [address] RBC (Bld) [#/Vol] 3.33 10*6/uL Low 3.80-5.20 [facility] Comment on above: Performed By: #### Fernando Hammond CMP3M #### [facility] [address] [place] [address] WBC (Bld) [#/Vol] 8.7 10*3/uL Normal 3.6-10.7 [facility] Comment on above: Performed By: #### Fernando Hammond CMP3M #### [facility] [address] [place] [address] Basic Metabolic Panelon 09-0 -2020 Calcium [Mass/Vol] 8.0 mg/dL Low 8.4-10.4 [facility] Comment on above: Performed By: #### M G3, CMP3M #### [facility] [address] [place] [address] Glucose [Mass/Vol] 147 mg/dL High 70-100 [facility] Comment on above: Performed By: #### M G3, CMP3M #### [facility] [address] [place] [address] Urea nitrogen [Mass/Vol] 9 mg/dL Normal 9-20 [facility] Comment on above: Performed By: #### M G3, CMP3M #### [facility] [address] [place] [address] Anion gap [Moles/Vol] 6 mmol/L Normal 3-13 [facility] Comment on above: Performed By: #### M G3, CMP3M #### [facility] [address] [place] [address] CO2 [Moles/Vol] 33 mmol/L High 22-30 [facility] Comment on above: Performed By: #### Fernando G3, CMP3M #### [facility] [address] [place] [address] Creatinine [Mass/Vol] 0.55 mg/dL Normal 0.52-1.25 [facility] Comment on above: Performed By: #### Fernando G3, CMP3M #### [facility] [address] [place] [address] GFR/1.73 sq M.predicted among blacks MDRD (S/P/Bld) [Vol rate/Area] mL/min/{1.73_m2} Normal >60 [facility] Comment on above: Performed By: #### M G3, CMP3M #### [facility] [address] [place] [address] GFR/1.73 sq M.predicted among non-blacks MDRD (S/P/Bld) [Vol rate/Area] 85.8 mL/min/{1.73_m2} Normal >60 [facility] Comment on above: Result Comment: KDIG O guidelines provide the following GFR categories: Stage GFR(ml/min/1.73 m2) Terms G1 >=90 Normal or high G2 60-89 Mildly decreased* G3a 45-59 Mildly to moderately decreased G3b 30-44 Moderately to severely decreased G4 15-29 Severely decreased G5 <15 Kidney failure *Relative to young adult level. In the absence of evidence of kidney damage, neither GFR category G1 nor G2 fulfill the criteria for CKD. The CKD-EPI equation is validated in individuals 18 years of age and older. Currently the best equation for estimating glomerular filtration rate (GFR) from serum creatinine in children is the Bedside Corea equation. It is less accurate in patients with extremes of muscle mass, restriction of dietary protein, ingestion of creatine, extra-renal metabolism of creatinine, or treatment with medications that affect renal tubular creatinine secretion. Performed By: #### Fernando Hammond CMP3M #### [facility] [address] [place] [address] Potassium [Moles/Vol] 3.4 mmol/L Low 3.5-5.1 [facility] Comment on above: Performed By: #### Fernando G3 CMP3M #### [facility] [address] [place] [address] Chloride [Moles/Vol] 100 mmol/L Normal 98-107 [facility] Comment on above: Performed By: #### Fernando G3 CMP3M #### [facility] [address] [place] [address] Sodium [Moles/Vol] 139 mmol/L Normal 135-145 [facility] Comment on above: Performed By: #### Fernando G3, CMP3M #### [facility] [address] [place] [address] Calcium [Mass/Vol] 7.9 mg/dL Low 8.4-10.4 [facility] Comment on above: Performed By: #### Fernando G3 CMP3M #### [facility] [address] [place] [address] Anion gap [Moles/Vol] 5 mmol/L Normal 3-13 [facility] Comment on above: Performed By: #### Fernando G3 CMP3M #### [facility] [address] [place] [address] CO2 [Moles/Vol] 34 mmol/L High 22-30 [facility] Comment on above: Performed By: #### Fernando G3 CMP3M #### [facility] [address] [place] [address] Creatinine [Mass/Vol] 0.44 mg/dL Low 0.52-1.25 [facility] Comment on above: Performed By: #### Fernando Hammond CMP3M #### [facility] [address] [place] [address] eGFR OTHER > 90.0 Normal >60 [facility] Comment on above: Result Comment: KDIG O guidelines provide the following GFR categories: Stage GFR(ml/min/1.73 m2) Terms G1 >=90 Normal or high G2 60-89 Mildly decreased* G3a 45-59 Mildly to moderately decreased G3b 30-44 Moderately to severely decreased G4 15-29 Severely decreased G5 <15 Kidney failure *Relative to young adult level. In the absence of evidence of kidney damage, neither GFR category G1 nor G2 fulfill the criteria for CKD. The CKD-EPI equation is validated in individuals 18 years of age and older. Currently the best equation for estimating glomerular filtration rate (GFR) from serum creatinine in children is the Bedside Corea equation. It is less accurate in patients with extremes of muscle mass, restriction of dietary protein, ingestion of creatine, extra-renal metabolism of creatinine, or treatment with medications that affect renal tubular creatinine secretion. Performed By: #### Fernando Hammond CMP3M #### [facility] [address] [place] [address] GFR/1.73 sq M.predicted among blacks MDRD (S/P/Bld) [Vol rate/Area] mL/min/{1.73_m2} Normal >60 [facility] Comment on above: Performed By: #### Fernando Hammond CMP3M #### [facility] [address] [place] [address] Glucose [Mass/Vol] 123 mg/dL High 70-100 [facility] Comment on above: Performed By: #### Fernando Hammond CMP3M #### [facility] [address] [place] [address] Urea nitrogen [Mass/Vol] 5 mg/dL Low 9-20 [facility] Comment on above: Performed By: #### Fernando Hammond CMP3M #### [facility] [address] [place] [address] Chloride [Moles/Vol] 99 mmol/L Normal 98-107 [facility] Comment on above: Performed By: #### M G3, CMP3M #### [facility] [address] [place] [address] Potassium [Moles/Vol] 2.6 mmol/L Critically low 3.5-5.1 [facility] Comment on above: Performed By: #### M G3, CMP3M #### [facility] [address] [place] [address] Sodium [Moles/Vol] 138 mmol/L Normal 135-145 [facility] Comment on above: Performed By: #### M Manish CMP3M #### [facility] [address] [place] [address] Comp Panel with Mg Reflexon 10-18-2020 Calcium [Mass/Vol] 7.8 mg/dL Low 8.4-10.4 [facility] Comment on above: Performed By: #### Fernando Hammond CMP3M #### [facility] [address] [place] [address] ALP [Catalytic activity/Vol] 46 U/L Normal 38-126 [facility] Comment on above: Performed By: #### Fernando Hammond CMP3M #### [facility] [address] [place] [address] ALT [Catalytic activity/Vol] 13 U/L Normal 0-34 [facility] Comment on above: Result Comment: The ALT test is performed by an updated assay method. Please note that the reference intervals have been changed and are now sex specific. Performed By: #### Fernando Hammond CMP3M #### [facility] [address] [place] [address] Anion gap [Moles/Vol] 3 mmol/L Normal 3-13 [facility] Comment on above: Performed By: #### Fernando Hammond CMP3M #### [facility] [address] [place] [address] AST [Catalytic activity/Vol] 30 U/L Normal 15-46 [facility] Comment on above: Performed By: #### Fernando G3, CMP3M #### [facility] [address] [place] [address] Bilirubin [Mass/Vol] 0.7 mg/dL Normal 0.2-1.3 [facility] Comment on above: Performed By: #### M G3, CMP3M #### [facility] [address] [place] [address] CO2 [Moles/Vol] 33 mmol/L High 22-30 [facility] Comment on above: Performed By: #### M G3, CMP3M #### [facility] [address] [place] [address] Glucose [Mass/Vol] 100 mg/dL Normal 70-100 [facility] Comment on above: Performed By: #### M G3, CMP3M #### [facility] [address] [place] [address] Protein [Mass/Vol] 5.8 g/dL Low 6.3-8.2 [facility] Comment on above: Performed By: #### M G3, CMP3M #### [facility] [address] [place] [address] Urea nitrogen [Mass/Vol] 6 mg/dL Low 9-20 [facility] Comment on above: Performed By: #### M G3, CMP3M #### [facility] [address] [place] [address] Creatinine [Mass/Vol] 0.42 mg/dL Low 0.52-1.25 [facility] Comment on above: Performed By: #### M G3, CMP3M #### [facility] [address] [place] [address] Albumin [Mass/Vol] 2.9 g/dL Low 3.5-5.0 [facility] Comment on above: Performed By: #### M G3, CMP3M #### [facility] [address] [place] [address] Chloride [Moles/Vol] 100 mmol/L Normal 98-107 [facility] Comment on above: Performed By: #### M G3, CMP3M #### [facility] [address] [place] [address] Potassium [Moles/Vol] 2.6 mmol/L Critically low 3.5-5.1 [facility] Comment on above: Performed By: #### M G3, CMP3M #### [facility] [address] [place] [address] Sodium [Moles/Vol] 136 mmol/L Normal 135-145 [facility] Comment on above: Performed By: #### M G3, CMP3M #### [facility] [address] [place] [address] Hemogram w/ Autodiffon 10-18 Abs Baso Cnt 0.0 10*3/uL Normal 0.0-0.2 [facility] Comment on above: Performed By: #### H EMDF #### [facility] [address] [place] [address] Abs Neutrophile Cnt 2.6 10*3/uL Normal 1.8-7.0 [facility] Comment on above: Performed By: #### H EMDF #### [facility] [address] [place] [address] Basophils/100 WBC (Bld) 0.4 % Normal 0.0-2.0 [facility] Comment on above: Performed By: #### H EMDF #### [facility] [address] [place] [address] Eosinophils (Bld) [#/Vol] 0.1 10*3/uL Normal 0.0-0.5 [facility] Comment on above: Performed By: #### H EMDF #### [facility] [address] [place] [address] Eosinophils/100 WBC (Bld) 1.5 % Normal 1.0-6.0 [facility] Comment on above: Performed By: #### H EMDF #### [facility] [address] [place] [address] Erythrocyte distribution width (RBC) [Ratio] 13.5 % Normal 11.5-14.5 [facility] Comment on above: Performed By: #### H EMDF #### [facility] [address] [place] [address] Granulocytes/100 WBC (Bld) 52.8 % Normal 40.0-80.0 [facility] Comment on above: Performed By: #### H EMDF #### [facility] [address] [place] [address] Hematocrit (Bld) [Volume fraction] 31.3 % Low 35.0-47.0 [facility] Comment on above: Performed By: #### H EMDF #### [facility] [address] [place] [address] Hemoglobin (Bld) [Mass/Vol] 10.8 g/dL Low 11.7-16.0 [facility] Comment on above: Performed By: #### H EMDF #### [facility] [address] [place] [address] Lymphocytes (Bld) [#/Vol] 1.4 10*3/uL Normal 1.0-4.3 [facility] Comment on above: Performed By: #### H EMDF #### [facility] [address] [place] [address] Lymphocytes/100 WBC (Bld) 28.7 % Normal 20.0-40.0 [facility] Comment on above: Performed By: #### H EMDF #### [facility] [address] [place] [address] MCH (RBC) [Entitic mass] 33.8 pg Normal 26.0-34.0 [facility] Comment on above: Performed By: #### H EMDF #### [facility] [address] [place] [address] MCHC 34.6 % Normal 32.0-36.0 [facility] Comment on above: Performed By: #### H EMDF #### [facility] [address] [place] [address] MCV (RBC) [Entitic vol] 97.9 fL Normal 79.0-98.0 [facility] Comment on above: Performed By: #### H EMDF #### [facility] [address] [place] [address] Monocytes (Bld) [#/Vol] 0.8 10*3/uL Normal 0.0-0.8 [facility] Comment on above: Performed By: #### H EMDF #### [facility] [address] [place] [address] Monocytes/100 WBC (Bld) 16.6 % High 2.0-10.0 [facility] Comment on above: Performed By: #### H EMDF #### [facility] [address] [place] [address] Platelet mean volume (Bld) [Entitic vol] 7.2 fL Low 7.4-10.4 [facility] Comment on above: Performed By: #### H EMDF #### [facility] [address] [place] [address] Platelets (Bld) [#/Vol] 201 10*3/uL Normal 140-440 [facility] Comment on above: Performed By: #### H EMDF #### [facility] [address] [place] [address] RBC (Bld) [#/Vol] 3.20 10*6/uL Low 3.80-5.20 [facility] Comment on above: Performed By: #### H EMDF #### [facility] [address] [place] [address] WBC (Bld) [#/Vol] 4.9 10*3/uL Normal 3.6-10.7 [facility] Comment on above: Performed By: #### H EMDF #### [facility] [address] [place] [address] Magnesiumon 10-18-2020 Magnesium [Mass/Vol] 2.1 mg/dL Normal 1.6-2.3 [facility] Comment on above: Performed By: #### M G3, CMP3M #### [facility] [address] [place] [address] Magnesium [Mass/Vol] 1.5 mg/dL Low 1.6-2.3 [facility] Comment on above: Performed By: #### M G3, CMP3M #### [facility] [address] [place] [address] Comp Metabolic Panelon 10-17 ALP [Catalytic activity/Vol] 42 U/L Normal 38-126 [facility] Comment on above: Performed By: #### C MP3M, HEMDF #### [facility] [address] [place] [address] ALT [Catalytic activity/Vol] 14 U/L Normal 0-34 [facility] Comment on above: Result Comment: The ALT test is performed by an updated assay method. Please note that the reference intervals have been changed and are now sex specific. Performed By: #### C MP3M, HEMDF #### [facility] [address] [place] [address] Calcium [Mass/Vol] 8.0 mg/dL Low 8.4-10.4 [facility] Comment on above: Performed By: #### C MP3M, HEMDF #### [facility] [address] [place] [address] Glucose [Mass/Vol] 97 mg/dL Normal 70-100 [facility] Comment on above: Performed By: #### C MP3M, HEMDF #### [facility] [address] [place] [address] Protein [Mass/Vol] 5.5 g/dL Low 6.3-8.2 [facility] Comment on above: Performed By: #### C MP3M, HEMDF #### [facility] [address] [place] [address] Urea nitrogen [Mass/Vol] 10 mg/dL Normal 9-20 [facility] Comment on above: Performed By: #### C MP3M, HEMDF #### [facility] [address] [place] [address] Anion gap [Moles/Vol] 1 mmol/L Low 3-13 [facility] Comment on above: Performed By: #### C MP3M, HEMDF #### [facility] [address] [place] [address] AST [Catalytic activity/Vol] 33 U/L Normal 15-46 [facility] Comment on above: Performed By: #### C MP3M, HEMDF #### [facility] [address] [place] [address] Bilirubin [Mass/Vol] 0.6 mg/dL Normal 0.2-1.3 [facility] Comment on above: Performed By: #### C MP3M, HEMDF #### [facility] [address] [place] [address] CO2 [Moles/Vol] 24 mmol/L Normal 22-30 [facility] Comment on above: Performed By: #### C MP3M, HEMDF #### [facility] [address] [place] [address] Creatinine [Mass/Vol] 0.54 mg/dL Normal 0.52-1.25 [facility] Comment on above: Performed By: #### C MP3M, HEMDF #### [facility] [address] [place] [address] GFR/1.73 sq M.predicted among blacks MDRD (S/P/Bld) [Vol rate/Area] mL/min/{1.73_m2} Normal >60 [facility] Comment on above: Performed By: #### C MP3M, HEMDF #### [facility] [address] [place] [address] GFR/1.73 sq M.predicted among non-blacks MDRD (S/P/Bld) [Vol rate/Area] 86.3 mL/min/{1.73_m2} Normal >60 [facility] Comment on above: Result Comment: KDIG O guidelines provide the following GFR categories: Stage GFR(ml/min/1.73 m2) Terms G1 >=90 Normal or high G2 60-89 Mildly decreased* G3a 45-59 Mildly to moderately decreased G3b 30-44 Moderately to severely decreased G4 15-29 Severely decreased G5 <15 Kidney failure *Relative to young adult level. In the absence of evidence of kidney damage, neither GFR category G1 nor G2 fulfill the criteria for CKD. The CKD-EPI equation is validated in individuals 18 years of age and older. Currently the best equation for estimating glomerular filtration rate (GFR) from serum creatinine in children is the Bedside Corea equation. It is less accurate in patients with extremes of muscle mass, restriction of dietary protein, ingestion of creatine, extra-renal metabolism of creatinine, or treatment with medications that affect renal tubular creatinine secretion. Performed By: #### C MP3M, HEMDF #### [facility] [address] [place] [address] Chloride [Moles/Vol] 115 mmol/L High 98-107 [facility] Comment on above: Performed By: #### C MP3M, HEMDF #### [facility] [address] [place] [address] Potassium [Moles/Vol] 3.5 mmol/L Normal 3.5-5.1 [facility] Comment on above: Performed By: #### C MP3M, HEMDF #### [facility] [address] [place] [address] Sodium [Moles/Vol] 139 mmol/L Normal 135-145 [facility] Comment on above: Performed By: #### C MP3M, HEMDF #### [facility] [address] [place] [address] Albumin [Mass/Vol] 2.6 g/dL Low 3.5-5.0 [facility] Comment on above: Performed By: #### C MP3M, HEMDF #### [facility] [address] [place] [address] Hemogram w/ Autodiffon 10-17 Abs Baso Cnt 0.0 10*3/uL Normal 0.0-0.2 [facility] Comment on above: Performed By: #### C MP3M, HEMDF #### [facility] [address] [place] [address] Abs Neutrophile Cnt 4.4 10*3/uL Normal 1.8-7.0 [facility] Comment on above: Performed By: #### C MP3M, HEMDF #### [facility] [address] [place] [address] Basophils/100 WBC (Bld) 0.3 % Normal 0.0-2.0 [facility] Comment on above: Performed By: #### C MP3M, HEMDF #### [facility] [address] [place] [address] Eosinophils (Bld) [#/Vol] 0.1 10*3/uL Normal 0.0-0.5 [facility] Comment on above: Performed By: #### C MP3M, HEMDF #### [facility] [address] [place] [address] Eosinophils/100 WBC (Bld) 2.0 % Normal 1.0-6.0 [facility] Comment on above: Performed By: #### C MP3M, HEMDF #### [facility] [address] [place] [address] Erythrocyte distribution width (RBC) [Ratio] 13.8 % Normal 11.5-14.5 [facility] Comment on above: Performed By: #### C MP3M, HEMDF #### [facility] [address] [place] [address] Granulocytes/100 WBC (Bld) 69.9 % Normal 40.0-80.0 [facility] Comment on above: Performed By: #### C MP3M, HEMDF #### [facility] [address] [place] [address] Hematocrit (Bld) [Volume fraction] 28.8 % Low 35.0-47.0 [facility] Comment on above: Performed By: #### C MP3M, HEMDF #### [facility] [address] [place] [address] Hemoglobin (Bld) [Mass/Vol] 9.9 g/dL Low 11.7-16.0 [facility] Comment on above: Performed By: #### C MP3M, HEMDF #### [facility] [address] [place] [address] Lymphocytes (Bld) [#/Vol] 1.1 10*3/uL Normal 1.0-4.3 [facility] Comment on above: Performed By: #### C MP3M, HEMDF #### [facility] [address] [place] [address] Lymphocytes/100 WBC (Bld) 17.7 % Low 20.0-40.0 [facility] Comment on above: Performed By: #### C MP3M, HEMDF #### [facility] [address] [place] [address] MCH (RBC) [Entitic mass] 34.4 pg High 26.0-34.0 [facility] Comment on above: Performed By: #### C MP3M, HEMDF #### [facility] [address] [place] [address] MCHC 34.4 % Normal 32.0-36.0 [facility] Comment on above: Performed By: #### C MP3M, HEMDF #### [facility] [address] [place] [address] MCV (RBC) [Entitic vol] 99.9 fL High 79.0-98.0 [facility] Comment on above: Performed By: #### C MP3M, HEMDF #### [facility] [address] [place] [address] Monocytes (Bld) [#/Vol] 0.6 10*3/uL Normal 0.0-0.8 [facility] Comment on above: Performed By: #### C MP3M, HEMDF #### [facility] [address] [place] [address] Monocytes/100 WBC (Bld) 10.1 % High 2.0-10.0 [facility] Comment on above: Performed By: #### C MP3M, HEMDF #### [facility] [address] [place] [address] Platelet mean volume (Bld) [Entitic vol] 7.3 fL Low 7.4-10.4 [facility] Comment on above: Performed By: #### C MP3M, HEMDF #### [facility] [address] [place] [address] Platelets (Bld) [#/Vol] 190 10*3/uL Normal 140-440 [facility] Comment on above: Performed By: #### C MP3M, HEMDF #### [facility] [address] [place] [address] RBC (Bld) [#/Vol] 2.88 10*6/uL Low 3.80-5.20 [facility] Comment on above: Performed By: #### C MP3M, HEMDF #### [facility] [address] [place] [address] WBC (Bld) [#/Vol] 6.3 10*3/uL Normal 3.6-10.7 [facility] Comment on above: Performed By: #### C MP3M, HEMDF #### [facility] [address] [place] [address] Lactic Acidon 10-17-2020 Lactate [Moles/Vol] 0.9 mmol/L Normal 0.7-2.0 [facility] Comment on above: Performed By: #### C MP3M, HEMDF #### [facility] [address] [place] [address] Comp Panel with Mg Reflexon 10-16-2020 ALP [Catalytic activity/Vol] 56 U/L Normal 38-126 [facility] Comment on above: Performed By: #### Gisella ELIAS CMP3M #### [facility] [address] [place] [address] ALT [Catalytic activity/Vol] 14 U/L Normal 0-34 [facility] Comment on above: Result Comment: The ALT test is performed by an updated assay method. Please note that the reference intervals have been changed and are now sex specific. Performed By: #### Gisella ELIAS CMP3M #### [facility] [address] [place] [address] AST [Catalytic activity/Vol] 33 U/L Normal 15-46 [facility] Comment on above: Performed By: #### Gisella ELIAS CMP3M #### [facility] [address] [place] [address] Calcium [Mass/Vol] 8.2 mg/dL Low 8.4-10.4 [facility] Comment on above: Performed By: #### Gisella ELIAS CMP3M #### [facility] [address] [place] [address] Glucose [Mass/Vol] 95 mg/dL Normal 70-100 [facility] Comment on above: Performed By: #### Gisella ELIAS CMP3M #### [facility] [address] [place] [address] Protein [Mass/Vol] 5.6 g/dL Low 6.3-8.2 [facility] Comment on above: Performed By: #### Gisella ELIAS CMP3M #### [facility] [address] [place] [address] Urea nitrogen [Mass/Vol] 23 mg/dL High 9-20 [facility] Comment on above: Performed By: #### Gisella ELIAS CMP3M #### [facility] [address] [place] [address] Anion gap [Moles/Vol] 8 mmol/L Normal 3-13 [facility] Comment on above: Performed By: #### H JADA CMP3M #### [facility] [address] [place] [address] Bilirubin [Mass/Vol] 0.3 mg/dL Normal 0.2-1.3 [facility] Comment on above: Performed By: #### H JADA CMP3M #### [facility] [address] [place] [address] CO2 [Moles/Vol] 18 mmol/L Low 22-30 [facility] Comment on above: Performed By: #### H JADA CMP3M #### [facility] [address] [place] [address] Creatinine [Mass/Vol] 0.87 mg/dL Normal 0.52-1.25 [facility] Comment on above: Performed By: #### Gisella ELIAS CMP3M #### [facility] [address] [place] [address] GFR/1.73 sq M.predicted among blacks MDRD (S/P/Bld) [Vol rate/Area] 70.6 mL/min/{1.73_m2} Normal >60 [facility] Comment on above: Performed By: #### H JADA CMP3M #### [facility] [address] [place] [address] GFR/1.73 sq M.predicted among non-blacks MDRD (S/P/Bld) [Vol rate/Area] 60.9 mL/min/{1.73_m2} Normal >60 [facility] Comment on above: Result Comment: KDIG O guidelines provide the following GFR categories: Stage GFR(ml/min/1.73 m2) Terms G1 >=90 Normal or high G2 60-89 Mildly decreased* G3a 45-59 Mildly to moderately decreased G3b 30-44 Moderately to severely decreased G4 15-29 Severely decreased G5 <15 Kidney failure *Relative to young adult level. In the absence of evidence of kidney damage, neither GFR category G1 nor G2 fulfill the criteria for CKD. The CKD-EPI equation is validated in individuals 18 years of age and older. Currently the best equation for estimating glomerular filtration rate (GFR) from serum creatinine in children is the Bedside Corea equation. It is less accurate in patients with extremes of muscle mass, restriction of dietary protein, ingestion of creatine, extra-renal metabolism of creatinine, or treatment with medications that affect renal tubular creatinine secretion. Performed By: #### Gisella ELIAS CMP3M #### [facility] [address] [place] [address] Albumin [Mass/Vol] 2.7 g/dL Low 3.5-5.0 [facility] Comment on above: Performed By: #### Gisella ELIAS CMP3M #### [facility] [address] [place] [address] Chloride [Moles/Vol] 116 mmol/L High 98-107 [facility] Comment on above: Performed By: #### Gisella ELIAS CMP3M #### [facility] [address] [place] [address] Potassium [Moles/Vol] 3.9 mmol/L Normal 3.5-5.1 [facility] Comment on above: Performed By: #### Gisella ELIAS CMP3M #### [facility] [address] [place] [address] Sodium [Moles/Vol] 143 mmol/L Normal 135-145 [facility] Comment on above: Performed By: #### Gisella EILAS CMP3M #### [facility] [address] [place] [address] Hemogram w/ Autodiffon 10-16 Abs Baso Cnt 0.0 10*3/uL Normal 0.0-0.2 [facility] Comment on above: Performed By: #### Gisella ELIAS CMP3M #### [facility] [address] [place] [address] Abs Neutrophile Cnt 6.7 10*3/uL Normal 1.8-7.0 [facility] Comment on above: Performed By: #### Gisella ELIAS CMP3M #### [facility] [address] [place] [address] Basophils/100 WBC (Bld) 0.3 % Normal 0.0-2.0 [facility] Comment on above: Performed By: #### Gisella ELIAS CMP3M #### [facility] [address] [place] [address] Eosinophils (Bld) [#/Vol] 0.0 10*3/uL Normal 0.0-0.5 [facility] Comment on above: Performed By: #### H EMDF, CMP3M #### [facility] [address] [place] [address] Eosinophils/100 WBC (Bld) 0.3 % Low 1.0-6.0 [facility] Comment on above: Performed By: #### H EMDF, CMP3M #### [facility] [address] [place] [address] Erythrocyte distribution width (RBC) [Ratio] 13.7 % Normal 11.5-14.5 [facility] Comment on above: Performed By: #### H EMDF, CMP3M #### [facility] [address] [place] [address] Granulocytes/100 WBC (Bld) 77.0 % Normal 40.0-80.0 [facility] Comment on above: Performed By: #### H EMDF, CMP3M #### [facility] [address] [place] [address] Hematocrit (Bld) [Volume fraction] 30.7 % Low 35.0-47.0 [facility] Comment on above: Performed By: #### H EMDF, CMP3M #### [facility] [address] [place] [address] Hemoglobin (Bld) [Mass/Vol] 10.3 g/dL Low 11.7-16.0 [facility] Comment on above: Performed By: #### H EMDF, CMP3M #### [facility] [employer] [facility] [address] [place] [address] Lymphocytes (Bld) [#/Vol] 1.3 10*3/uL Normal 1.0-4.3 [facility] Comment on above: Performed By: #### H EMDF, CMP3M #### [facility] [employer] [facility] [address] [place] [address] Lymphocytes/100 WBC (Bld) 14.5 % Low 20.0-40.0 [facility] Comment on above: Performed By: #### H EMDF CMP3M #### [facility] [address] [place] [address] MCH (RBC) [Entitic mass] 33.7 pg Normal 26.0-34.0 [facility] Comment on above: Performed By: #### H EMDF, CMP3M #### [facility] [address] [place] [address] MCHC 33.6 % Normal 32.0-36.0 [facility] Comment on above: Performed By: #### H EMDF CMP3M #### [facility] [address] [place] [address] MCV (RBC) [Entitic vol] 100.3 fL High 79.0-98.0 [facility] Comment on above: Performed By: #### H EMDSujey CMP3M #### [facility] [address] [place] [address] Monocytes (Bld) [#/Vol] 0.7 10*3/uL Normal 0.0-0.8 [facility] Comment on above: Performed By: #### H EMDSujey CMP3M #### [facility] [address] [place] [address] Monocytes/100 WBC (Bld) 7.9 % Normal 2.0-10.0 [facility] Comment on above: Performed By: #### H EMDF, CMP3M #### [facility] [address] [place] [address] Platelet mean volume (Bld) [Entitic vol] 7.6 fL Normal 7.4-10.4 [facility] Comment on above: Performed By: #### H EMDF CMP3M #### [facility] [address] [place] [address] Platelets (Bld) [#/Vol] 190 10*3/uL Normal 140-440 [facility] Comment on above: Performed By: #### H EMDF, CMP3M #### [facility] [address] [place] [address] RBC (Bld) [#/Vol] 3.06 10*6/uL Low 3.80-5.20 [facility] [facility] Comment on above: Performed By: #### H JADA CMP3M #### [facility] [address] [place] [address] WBC (Bld) [#/Vol] 8.7 10*3/uL Normal 3.6-10.7 [facility] Comment on above: Performed By: #### H JADA CMP3M #### [facility] [address] [place] [address] Procalcitoninon 10-16-2020 Procalcitonin 6.93 ng/mL High 0.00-0.09 [facility] Comment on above: Performed By: #### M G3 CMP3M #### [facility] [address] [place] [address] Interpretation See Below Normal [facility] Comment on above: Result Comment: PCT <0.50 = Low risk of severe sepsis and/or septic shock. PCT >2.00 = High risk of severe sepsis and/or septic shock. Performed By: #### Fernando G3 CMP3M #### [facility] [address] [place] [address] Comp Panel with Mg Reflexon 10-15-2020 Calcium [Mass/Vol] 8.3 mg/dL Low 8.4-10.4 [facility] Comment on above: Performed By: #### C MP3M, HEMDF #### [facility] [address] [place] [address] ALP [Catalytic activity/Vol] 84 U/L Normal 38-126 [facility] Comment on above: Performed By: #### C MP3M, HEMDF #### [facility] [address] [place] [address] ALT [Catalytic activity/Vol] 15 U/L Normal 0-34 [facility] Comment on above: Result Comment: The ALT test is performed by an updated assay method. Please note that the reference intervals have been changed and are now sex specific. Performed By: #### C MP3M, HEMDF #### [facility] [address] [place] [address] Anion gap [Moles/Vol] 9 mmol/L Normal 3-13 [facility] Comment on above: Performed By: #### C MP3M, HEMDF #### [facility] [address] [place] [address] AST [Catalytic activity/Vol] 37 U/L Normal 15-46 [facility] Comment on above: Performed By: #### C MP3M, HEMDF #### [facility] [address] [place] [address] Bilirubin [Mass/Vol] 0.5 mg/dL Normal 0.2-1.3 [facility] Comment on above: Performed By: #### C MP3M, HEMDF #### [facility] [address] [place] [address] CO2 [Moles/Vol] 18 mmol/L Low 22-30 [facility] Comment on above: Performed By: #### C MP3M, HEMDF #### [facility] [address] [place] [address] Creatinine [Mass/Vol] 1.59 mg/dL High 0.52-1.25 [facility] Comment on above: Performed By: #### C MP3M, HEMDF #### [facility] [address] [place] [address] GFR/1.73 sq M.predicted among blacks MDRD (S/P/Bld) [Vol rate/Area] 34.1 mL/min/{1.73_m2} Abnormal >60 [facility] Comment on above: Performed By: #### C MP3M, HEMDF #### [facility] [address] [place] [address] GFR/1.73 sq M.predicted among non-blacks MDRD (S/P/Bld) [Vol rate/Area] 29.4 mL/min/{1.73_m2} Abnormal >60 [facility] Comment on above: Result Comment: KDIG O guidelines provide the following GFR categories: Stage GFR(ml/min/1.73 m2) Terms G1 >=90 Normal or high G2 60-89 Mildly decreased* G3a 45-59 Mildly to moderately decreased G3b 30-44 Moderately to severely decreased G4 15-29 Severely decreased G5 <15 Kidney failure *Relative to young adult level. In the absence of evidence of kidney damage, neither GFR category G1 nor G2 fulfill the criteria for CKD. The CKD-EPI equation is validated in individuals 18 years of age and older. Currently the best equation for estimating glomerular filtration rate (GFR) from serum creatinine in children is the Bedside Corea equation. It is less accurate in patients with extremes of muscle mass, restriction of dietary protein, ingestion of creatine, extra-renal metabolism of creatinine, or treatment with medications that affect renal tubular creatinine secretion. Performed By: #### Alexis MP3M, HEMDF #### [facility] [address] [place] [address] Glucose [Mass/Vol] 93 mg/dL Normal 70-100 [facility] Comment on above: Performed By: #### C MP3M, HEMDF #### [facility] [address] [place] [address] Protein [Mass/Vol] 5.6 g/dL Low 6.3-8.2 [facility] Comment on above: Performed By: #### C MP3M, HEMDF #### [facility] [address] [place] [address] Urea nitrogen [Mass/Vol] 40 mg/dL High 9-20 [facility] Comment on above: Performed By: #### C MP3M, HEMDF #### [facility] [address] [place] [address] Potassium [Moles/Vol] 4.1 mmol/L Normal 3.5-5.1 [facility] Comment on above: Performed By: #### C MP3M, HEMDF #### [facility] [address] [place] [address] Albumin [Mass/Vol] 2.7 g/dL Low 3.5-5.0 [facility] Comment on above: Performed By: #### C MP3M, HEMDF #### [facility] [address] [place] [address] Chloride [Moles/Vol] 108 mmol/L High 98-107 [facility] Comment on above: Performed By: #### C MP3M, HEMDF #### [facility] [address] [place] [address] Sodium [Moles/Vol] 135 mmol/L Normal 135-145 [facility] Comment on above: Performed By: #### C MP3M, HEMDF #### [facility] [address] [place] [address] Hemogram w/ Autodiffon 10-15 Abs Baso Cnt 0.0 10*3/uL Normal 0.0-0.2 [facility] Comment on above: Performed By: #### C MP3M, HEMDF #### [facility] [address] [place] [address] Abs Neutrophile Cnt 7.5 10*3/uL High 1.8-7.0 [facility] Comment on above: Performed By: #### C MP3M, HEMDF #### [facility] [address] [place] [address] Basophils/100 WBC (Bld) 0.4 % Normal 0.0-2.0 [facility] Comment on above: Performed By: #### C MP3M, HEMDF #### [facility] [address] [place] [address] Eosinophils (Bld) [#/Vol] 0.0 10*3/uL Normal 0.0-0.5 [facility] Comment on above: Performed By: #### C MP3M, HEMDF #### [facility] [address] [place] [address] Eosinophils/100 WBC (Bld) 0.2 % Low 1.0-6.0 [facility] Comment on above: Performed By: #### C MP3M, HEMDF #### [facility] [address] [place] [address] Erythrocyte distribution width (RBC) [Ratio] 13.9 % Normal 11.5-14.5 [facility] Comment on above: Performed By: #### C MP3M, HEMDF #### [facility] [address] [place] [address] Granulocytes/100 WBC (Bld) 76.2 % Normal 40.0-80.0 [facility] Comment on above: Performed By: #### C MP3M, HEMDF #### [facility] [address] [place] [address] Hematocrit (Bld) [Volume fraction] 32.6 % Low 35.0-47.0 [facility] Comment on above: Performed By: #### C MP3M, HEMDF #### [facility] [address] [place] [address] Hemoglobin (Bld) [Mass/Vol] 11.2 g/dL Low 11.7-16.0 [facility] Comment on above: Performed By: #### C MP3M, HEMDF #### [facility] [address] [place] [address] Lymphocytes (Bld) [#/Vol] 1.4 10*3/uL Normal 1.0-4.3 [facility] Comment on above: Performed By: #### C MP3M, HEMDF #### [facility] [address] [place] [address] Lymphocytes/100 WBC (Bld) 14.7 % Low 20.0-40.0 [facility] Comment on above: Performed By: #### C MP3M, HEMDF #### [facility] [address] [place] [address] MCH (RBC) [Entitic mass] 34.6 pg High 26.0-34.0 [facility] Comment on above: Performed By: #### C MP3M, HEMDF #### [facility] [address] [place] [address] MCHC 34.5 % Normal 32.0-36.0 [facility] Comment on above: Performed By: #### C MP3M, HEMDF #### [facility] [address] [place] [address] MCV (RBC) [Entitic vol] 100.5 fL High 79.0-98.0 [facility] Comment on above: Performed By: #### C MP3M, HEMDF #### [facility] [address] [place] [address] Monocytes (Bld) [#/Vol] 0.8 10*3/uL Normal 0.0-0.8 [facility] Comment on above: Performed By: #### C MP3M, HEMDF #### [facility] [address] [place] [address] Monocytes/100 WBC (Bld) 8.5 % Normal 2.0-10.0 [facility] Comment on above: Performed By: #### C MP3M, HEMDF #### [facility] [address] [place] [address] Platelet mean volume (Bld) [Entitic vol] 7.7 fL Normal 7.4-10.4 [facility] Comment on above: Performed By: #### C MP3M, HEMDF #### [facility] [address] [place] [address] Platelets (Bld) [#/Vol] 211 10*3/uL Normal 140-440 [facility] Comment on above: Performed By: #### C MP3M, HEMDF #### [facility] [address] [place] [address] RBC (Bld) [#/Vol] 3.25 10*6/uL Low 3.80-5.20 [facility] Comment on above: Performed By: #### C MP3M, HEMDF #### [facility] [address] [place] [address] WBC (Bld) [#/Vol] 9.8 10*3/uL Normal 3.6-10.7 [facility] Comment on above: Performed By: #### C MP3M, HEMDF #### [facility] [address] [place] [address] Add on test from HISon 10-14 Add on test from HIS Accepted Normal [facility] Comment on above: Result Comment: Spec imen available & acceptable for analysis. Performed By: #### M G3, CMP3M #### [facility] [address] [place] [address] Basic Metabolic Panelon 0 Anion gap [Moles/Vol] 6 mmol/L Normal 3-13 [facility] Comment on above: Performed By: #### B MP3M #### [facility] [address] [place] [address] Calcium [Mass/Vol] 8.2 mg/dL Low 8.4-10.4 [facility] Comment on above: Performed By: #### B MP3M #### [facility] [address] [place] [address] CO2 [Moles/Vol] 22 mmol/L Normal 22-30 [facility] Comment on above: Performed By: #### B MP3M #### [facility] [address] [place] [address] Glucose [Mass/Vol] 109 mg/dL High 70-100 [facility] Comment on above: Performed By: #### B MP3M #### [facility] [address] [place] [address] Urea nitrogen [Mass/Vol] 33 mg/dL High 9-20 [facility] Comment on above: Performed By: #### B MP3M #### [facility] [address] [place] [address] Creatinine [Mass/Vol] 1.30 mg/dL High 0.52-1.25 [facility] Comment on above: Performed By: #### B MP3M #### [facility] [address] [place] [address] GFR/1.73 sq M.predicted among blacks MDRD (S/P/Bld) [Vol rate/Area] 43.5 mL/min/{1.73_m2} Abnormal >60 [facility] Comment on above: Performed By: #### B MP3M #### [facility] [address] [place] [address] GFR/1.73 sq M.predicted among non-blacks MDRD (S/P/Bld) [Vol rate/Area] 37.5 mL/min/{1.73_m2} Abnormal >60 [facility] Comment on above: Result Comment: KDIG O guidelines provide the following GFR categories: Stage GFR(ml/min/1.73 m2) Terms G1 >=90 Normal or high G2 60-89 Mildly decreased* G3a 45-59 Mildly to moderately decreased G3b 30-44 Moderately to severely decreased G4 15-29 Severely decreased G5 <15 Kidney failure *Relative to young adult level. In the absence of evidence of kidney damage, neither GFR category G1 nor G2 fulfill the criteria for CKD. The CKD-EPI equation is validated in individuals 18 years of age and older. Currently the best equation for estimating glomerular filtration rate (GFR) from serum creatinine in children is the Bedside Corea equation. It is less accurate in patients with extremes of muscle mass, restriction of dietary protein, ingestion of creatine, extra-renal metabolism of creatinine, or treatment with medications that affect renal tubular creatinine secretion. Performed By: #### B MP3M #### [facility] [address] [place] [address] Chloride [Moles/Vol] 107 mmol/L Normal 98-107 [facility] Comment on above: Performed By: #### B MP3M #### [facility] [address] [place] [address] Potassium [Moles/Vol] 4.3 mmol/L Normal 3.5-5.1 [facility] Comment on above: Performed By: #### B MP3M #### [facility] [address] [place] [address] Sodium [Moles/Vol] 135 mmol/L Normal 135-145 [facility] Comment on above: Performed By: #### B MP3M #### [facility] [address] [place] [address] Calcium [Mass/Vol] 9.1 mg/dL Normal 8.4-10.4 [facility] Comment on above: Performed By: #### B MP3M #### [facility] [address] [place] [address] Glucose [Mass/Vol] 96 mg/dL Normal 70-100 [facility] Comment on above: Performed By: #### B MP3M #### [facility] [address] [place] [address] Anion gap [Moles/Vol] 10 mmol/L Normal 3-13 [facility] Comment on above: Performed By: #### B MP3M #### [facility] [address] [place] [address] CO2 [Moles/Vol] 21 mmol/L Low 22-30 [facility] Comment on above: Performed By: #### B MP3M #### [facility] [address] [place] [address] Creatinine [Mass/Vol] 1.38 mg/dL High 0.52-1.25 [facility] Comment on above: Performed By: #### B MP3M #### [facility] [address] [place] [address] GFR/1.73 sq M.predicted among blacks MDRD (S/P/Bld) [Vol rate/Area] 40.4 mL/min/{1.73_m2} Abnormal >60 [facility] Comment on above: Performed By: #### B MP3M #### [facility] [address] [place] [address] GFR/1.73 sq M.predicted among non-blacks MDRD (S/P/Bld) [Vol rate/Area] 34.9 mL/min/{1.73_m2} Abnormal >60 [facility] Comment on above: Result Comment: KDIG O guidelines provide the following GFR categories: Stage GFR(ml/min/1.73 m2) Terms G1 >=90 Normal or high G2 60-89 Mildly decreased* G3a 45-59 Mildly to moderately decreased G3b 30-44 Moderately to severely decreased G4 15-29 Severely decreased G5 <15 Kidney failure *Relative to young adult level. In the absence of evidence of kidney damage, neither GFR category G1 nor G2 fulfill the criteria for CKD. The CKD-EPI equation is validated in individuals 18 years of age and older. Currently the best equation for estimating glomerular filtration rate (GFR) from serum creatinine in children is the Bedside Corea equation. It is less accurate in patients with extremes of muscle mass, restriction of dietary protein, ingestion of creatine, extra-renal metabolism of creatinine, or treatment with medications that affect renal tubular creatinine secretion. Performed By: #### B MP3M #### [facility] [employer] [facility] [address] [place] [address] Urea nitrogen [Mass/Vol] 33 mg/dL High 9-20 [facility] Comment on above: Performed By: #### B MP3M #### [facility] [address] [place] [address] Potassium [Moles/Vol] 4.2 mmol/L Normal 3.5-5.1 [facility] Comment on above: Performed By: #### B MP3M #### [facility] [address] [place] [address] Sodium [Moles/Vol] 132 mmol/L Low 135-145 [facility] Comment on above: Performed By: #### B MP3M #### [facility] [address] [place] [address] Chloride [Moles/Vol] 101 mmol/L Normal 98-107 [facility] Comment on above: Performed By: #### B MP3M #### [facility] [address] [place] [address] C-Reactive Proteinon 021 CRP [Mass/Vol] mg/L Normal 0.0-6.0 [facility] Comment on above: Result Comment: . Performed By: #### B MP3M #### [facility] [address] [place] [address] CT Abdomen/Pelvis w/ Contras ton 10-14-2020 CT Abdomen/Pelvis w/ Contrast Patient Name: KATHERINE JUDGE Computed Tomography ACCESSION EXAM DATE/TIME PROCEDURE ORDERING PROVIDER [id number] 10/13/2020 23:[address] Abdomen/Pelvis w/ IV CAROLINA DICKERSON-C, Contrast (IV Onl JULITA CPT code 24066 Q9967 Reason For Exam (CT Abdomen/Pelvis w/ IV Contrast (IV Onl) diffuse tenderness profuse diarrhea since [address] ABDOMEN AND PELVIS WITH CONTRAST EXAM DATE AND TIME: 10/13/2020 11:28 PM EDT INDICATION: 85 years Female with diffuse tenderness and diarrhea COMPARISON: None TECHNIQUE: Transaxial sequence through the abdomen and pelvis with 3 mm reconstruction with dynamic intravenous infusion of 75 mL of 370 mg% contrast media. Coronal and sagittal reconstructions included. Dose reduction was employed with automated exposure control. FINDINGS: Chest base: There is a large hiatal hernia containing the majority of the stomach and a portion of the pancreas. Bibasilar atelectasis is present. Coronary artery calcifications are seen. Liver: Normal size and contour. No focal lesion. Biliary tree: Normal caliber. Borderline distended gallbladder Spleen: Normal. Adrenals: Normal. Pancreas: Partly contained within the hiatal hernia. No peripancreatic edema, fat stranding or peripancreatic fluid collection. No pancreatic mass. Borderline duct dilation to 3 mm. Kidneys: Symmetric contrast enhancement without hydronephrosis. Right renal cyst. No enhancing lesion. Free fluid: Free pelvic fluid is present. Retroperitoneal/mesenteric lymphadenopathy: None. Bowel: Normal caliber. Mural thickening is present involving the gastric antrum. Diverticuli are noted throughout the sigmoid colon. No stenotic lesion, mucosal thickening or adjacent fat stranding is noted to suggest diverticulitis. There is mural thickening and submucosal edema involving the colon involving the transverse, descending and proximal sigmoid colon. There is some adjacent fat stranding. No pneumatosis coli. The appendix is not identified, however there is no pericecal fat stranding. Aorta: Atherosclerotic calcifications are seen in the aorta and its branches. Computed Tomography Report The aorta is normal in caliber. Abdominal wall: Normal. Pelvic organs/viscera: No mass identified. Pelvic lymphadenopathy: None. Osseous structures: Degenerative changes are present in the spine. There is a levocurvature of the upper lumbar spine. There is compression deformity involving the superior endplates of L1 and L3. There is vertebral plana involving the T10 vertebra. IMPRESSION: 1. Findings of colitis involving the transverse, descending and proximal sigmoid colon. This could be infectious, inflammatory or less likely ischemic in etiology. Recommend correlation with patient history and lab values including CBC and lactate levels. 2. Very large hiatal hernia containing the majority of the stomach and portions of the pancreas. Gastric antral wall thickening is present; correlate for possible gastritis. Consider endoscopy. 3. Borderline pancreatic duct dilation which may be due to chronic pancreatitis. 4. Distended gallbladder, which could be due to fasting but if there is concern for cholecystitis, ultrasound could be obtained for further evaluation. 5. Free pelvic fluid. 6. Multiple osseous abnormalities as above. Report Dictated on Final Dictating Physician: MD SAAVEDRA NICHOLAS Signed Date and Time: 10/13/2020 11:52 pm Signed by: MD SAAVEDRA NICHOLAS Transcribed Date and Time: 10/13/2020 11:53 Normal [facility] GASTROINTESTINAL PCR PANELon 10-14-2020 GASTROINTESTINAL PCR PANEL GASTROINTESTINAL PCR PANEL --> Status: F NEGATIVE: No targets were detected by the [employer] Gastrointestinal PCR Panel. _ The [employer] Gastrointestinal PCR Panel can detect the following targets: Campylobacter, Plesiomonas shigelloides, Salmonella, Vibrio species, Vibrio cholerae, Yersinia enterocolitica, Shiga toxin-producing E coli (STEC) including E coli O157, Enterotoxigenic E coli (ETEC), Shigella/Enteroinvasive E coli (EIEC), Cryptosporidium, Cyclospora cayetanensis, Entamoeba histolytica, Giardia lamblia, Adenovirus F 40/41, Astrovirus, Norovirus GI/GII, Rotavirus A, Sapovirus Gastrointestinal PCR Panel. _ The [employer] Gastrointestinal PCR Panel can detect the following targets: Campylobacter, Plesiomonas shigelloides, Salmonella, Vibrio species, Vibrio cholerae, Yersinia enterocolitica, Shiga toxin-producing E coli (STEC) including E coli O157, Enterotoxigenic E coli (ETEC), Shigella/Enteroinvasive E coli (EIEC), Cryptosporidium, Cyclospora cayetanensis, Entamoeba histolytica, Giardia lamblia, Adenovirus F 40/41, Astrovirus, Norovirus GI/GII, Rotavirus A, Sapovirus Normal [facility] Comment on above: Performed By: #### B FGI #### [facility] [address] [place] [address] Glucoseon 10-14-2020 Glucose [Mass/Vol] 107 mg/dL High 70-100 [facility] Comment on above: Performed By: #### B MP3M #### [facility] [address] [place] [address] Hepatic Functionon 1 ALP [Catalytic activity/Vol] 216 U/L High 38-126 [facility] Comment on above: Performed By: #### B MP3M #### [facility] [address] [place] [address] ALT [Catalytic activity/Vol] 17 U/L Normal 0-34 [facility] Comment on above: Result Comment: The ALT test is performed by an updated assay method. Please note that the reference intervals have been changed and are now sex specific. Performed By: #### B MP3M #### [facility] [employer] [facility] [address] [place] [address] AST [Catalytic activity/Vol] 50 U/L High 15-46 [facility] Comment on above: Performed By: #### B MP3M #### [facility] [address] [place] [address] Bilirubin [Mass/Vol] 0.9 mg/dL Normal 0.2-1.3 [facility] Comment on above: Performed By: #### B MP3M #### [facility] [address] [place] [address] Bilirubin.indirect [Mass/Vol] 0.0 mg/dL Normal 0.0-0.3 [facility] Comment on above: Performed By: #### B MP3M #### [facility] [address] [place] [address] Protein [Mass/Vol] 5.9 g/dL Low 6.3-8.2 [facility] Comment on above: Performed By: #### B MP3M #### [facility] [address] [place] [address] Albumin [Mass/Vol] 3.0 g/dL Low 3.5-5.0 [facility] Comment on above: Performed By: #### B MP3M #### [facility] [address] [place] [address] Lactic Acidon 10-14-2020 Lactate [Moles/Vol] 1.5 mmol/L Normal 0.7-2.0 [facility] Comment on above: Performed By: #### M G3, CMP3M #### [facility] [address] [place] [address] Magnesiumon 10-14-2020 Magnesium [Mass/Vol] 1.6 mg/dL Normal 1.6-2.3 [facility] Comment on above: Performed By: #### B MP3M #### [facility] [address] [place] [address] Phosphoruson 10-14-2020 Phosphate [Mass/Vol] 4.6 mg/dL High 2.5-4.5 [facility] Comment on above: Performed By: #### B MP3M #### [facility] [address] [place] [address] Procalcitoninon 10-14-2020 Procalcitonin 7.54 ng/mL High 0.00-0.09 [facility] Comment on above: Performed By: #### B MP3M #### [facility] [address] [place] [address] Interpretation See Below Normal [facility] Comment on above: Result Comment: PCT <0.50 = Low risk of severe sepsis and/or septic shock. PCT >2.00 = High risk of severe sepsis and/or septic shock. Performed By: #### B MP3M #### [facility] [address] [place] [address] SARS-CoV-2 (LAB DEPT)on SARS-CoV-2 (COVID-19) RNA ALTHEA+probe Ql (Unsp spec) see below Normal [facility] Comment on above: Result Comment: Not Detected Expected Result: Not Detected _ Isothermal nucleic acid amplification performed on the [employer] System by the [facility] Negative results do not preclude SARS-CoV-2 infection and should not be used as the sole basis for treatment or other patient management decisions. This assay was developed by [email or web address] and distributed under an Emergency Use Authorization (EUA) granted by the [facility] for the qualitative detection of SARS-CoV-2 nucleic acid. Provider and patient fact sheets can be found at https://www.fda.gov/media/885075/download and https://www.fda.gov/media/292219/download. Performed By: #### B MP3M #### [facility] [address] [place] [address] TS GELon 10-14-2020 TS GEL ABO Group: O Rh, Gel: POS Antibody Screen Gel: NEG Normal [facility] Comment on above: Performed By: #### T SGL #### [facility] Troponin Ion 10-14-2020 Troponin I.cardiac [Mass/Vol] ng/mL Normal 0.000-0.03 4 [facility] Comment on above: Result Comment: . Performed By: #### B MP3M #### [facility] [address] [place] [address] ED Provider Noteon ED Provider Note [facility] ED eMERGENCY dEPARTMENT eNCOUnter Pt Name: Katherine Judge Birthdate 1935 Date of evaluation: 10/13/2020 Provider: Julita Dickerson PA-C CHIEF COMPLAINT Chief Complaint Patient presents with ? Diarrhea I evaluated this patient in conjunction with Dr. Cesar the ED attending who is in agreement with the assessment and plan. I was wearing a N95 mask, gloves, surgical mask for the entirety of this encounter. Does this patient come from an ECF, SNF, Rehab, Intermediate or other Congregate setting: no (If yes to above patient needs a Covid-19 test) HISTORY OF PRESENT ILLNESS (Location/Symptom, Timing/Onset,Context/Setting , Quality, Duration, Modifying Factors, Severity) Note limiting factors. KANCHAN Judge is a 85 y.o. female who presents to the emergency department for profuse liquid diarrhea since 2 PM. Patient states that she has had this in the past. States that her abdomen is very sore and tender secondary to all of the diarrhea. denies any fevers chills or diaphoresis. Rates her pain a 10 out of 10. Nursing Notes were reviewed. REVIEW OF SYSTEMS (2+ forlevel 4; 10+ for level 5) Review of Systems at least 10 systems reviewed and otherwise acutely negative except as stated in [place]. PAST MEDICAL HISTORY Past Medical History: Diagnosis Date ? CAD (coronary artery disease) ? Hypothyroidism ? Ischemic colitis (HCC) SURGICALHISTORY History reviewed. No pertinent surgical history. CURRENT MEDICATIONS Previous Medications ACETAMINOPHEN (TYLENOL) 500 MG TABLET Take 500 mg by mouth every 6 hours as needed for Pain ATORVASTATIN (LIPITOR) 10 MG TABLET Take 10 mg by mouth daily BUPROPION (WELLBUTRIN XL) 150 MG EXTENDED RELEASE TABLET Take 150 mg by mouth every morning CALCIUM CARBONATE (OSCAL) 500 MG TABS TABLET Take 500 mg by mouth daily CLOPIDOGREL (PLAVIX) 75 MG TABLET Take 75 mg by mouth daily DOCUSATE SODIUM (COLACE) 100 MG CAPSULE Take 100 mg by mouth 2 times daily FERROUS SULFATE (IRON 325) 325 (65 FE) MG TABLET Take 325 mg by mouth daily (with breakfast) FLUTICASONE (FLONASE) 50 MCG/ACT NASAL SPRAY 1 spray by Each Nostril route daily FUROSEMIDE (LASIX) 20 MG TABLET Take 20 mg by mouth 2 times daily GABAPENTIN (NEURONTIN) 300 MG CAPSULE Take 300 mg by mouth 3 times daily. HYOSCYAMINE (LEVBID) 375 MCG EXTENDED RELEASE TABLET Take 375 mcg by mouth 2 times daily ISOSORBIDE MONONITRATE (IMDUR) 60 MG EXTENDED RELEASE TABLET Take 60 mg by mouth daily LIDOCAINE (LIDODERM) 5 % Place 1 patch onto the skin daily 12 hours on, 12 hours off. LIDOCAINE (LMX) 4 % CREAM Apply topically as needed for Pain Apply topically as needed. METOPROLOL TARTRATE (LOPRESSOR) 50 MG TABLET Take 50 mg by mouth 2 times daily MONTELUKAST (SINGULAIR) 10 MG TABLET Take 10 mg by mouth nightly NITROGLYCERIN (NITROSTAT) 0.[address] 0.4 mg under the tongue every 5 minutes as needed for Chest pain up to max of 3 total doses. If no relief after 1 dose, call 911. OMEPRAZOLE (PRILOSEC) 20 MG DELAYED RELEASE CAPSULE Take 20 mg by mouth 2 times daily POTASSIUM CHLORIDE (MICRO-K) 10 MEQ EXTENDED RELEASE CAPSULE Take 10 mEq by mouth 2 times daily TIZANIDINE (ZANAFLEX) 2 MG TABLET Take 2 mg by mouth every 6 hours as needed ALLERGIES Aspirin, Bee pollen, Cephalexin, Clarithromycin, Clindamycin, Erythromycin, Fish allergy, Lorazepam, Lunesta [eszopiclone], Nsaids, Penicillins, Rofecoxib, Salicylates, Tetracyclines & related, and Lincomycin FAMILY HISTORY History reviewed. No pertinent family history. SOCIAL HISTORY Social History Socioeconomic History ? Marital status: Spouse name: None ? Number of children: None ? Years of education: None ? Highest education level: None Occupational History ? None Tobacco Use ? Smoking status: Never Smoker ? Smokeless tobacco: Never Used Vaping Use ? Vaping Use: Never used Substance and Sexual Activity ? Alcohol use: Never ? Drug use: Never ? Sexual activity: None Other Topics Concern ? None Social History Narrative ? None Social Determinants of Health Financial Resource Strain: ? Difficulty of Paying Living Expenses: Food Insecurity: ? Worried About Running Out of Food in the Last Year: ? Ran Out of Food in the Last Year: Transportation Needs: ? Lack of Transportation (Medical): ? Lack of Transportation (Non-Medical): Physical Activity: ? Days of Exercise per Week: ? Minutes of Exercise per Session: Stress: ? Feeling of Stress : Social Connections: ? Frequency of Communication with Friends and Family: ? Frequency of Social Gatherings with Friends and Family: ? Attends [employer]oration Services: ? Active Member of Clubs or Organizations: ? Attends Club or Organization Meetings: ? Marital Status: Intimate Partner Violence: ? Fear of Current or Ex-Partner: ? Emotionally Abused: ? Physically Abused: ? Sexually Abused: SCREENINGS PHYS (more content not included)... [facility] ED Provider Note Emergency Department Encounter [facility] ED Patient: Katherine Judge : 1935 Date of Evaluation: 10/13/2020 ED Supervising Physician: Hugh Cesar MD I independently examined and evaluated Katherine Judge. In brief, Katherine Judge is a 85 y.o. female that presents to the emergency department with diarrhea and abdominal pain since 2 PM. Patient had some abdominal cramps earlier in the day for which she took Bentyl. She had nausea but no vomiting. Around 2 PM developed persistent diffuse watery brown diarrhea and abdominal cramping that is worse. Some lightheadedness and dizziness. No report of fever or syncope. Reports multiple prior abdominal surgeries including hysterectomy and complications related to adhesions. Focused exam: Awake, alert, blood pressure is 81/37 on my exam but patient does not appear that ill. Her abdomen is soft with diffuse tenderness, seems worse on the left side. No rigidity. Skin is warm and dry, mildly pale. Brief ED course/MDM: Broad work-up including labs, urinalysis, and CT scan of the abdomen and pelvis while providing IV fluids, low-dose fentanyl, and Zofran. Patient will likely need to be admitted to the hospital. Update at 11 PM?work-up so far noted for lactic acid of 3.9, creatinine of 1.4. CBC showed normal white blood cell count, hemoglobin of 16, and normal platelet count. Stool occult blood was positive. Hepatic panel with minor abnormalities. Blood pressure slowly improving, most recently 90/61. CT scan is pending. Regardless of those findings, certainly expect recommendation for hospital admission. All diagnostic, treatment, and disposition decisions were made by myself in conjunction with the SINDI. For all further details of the patient's emergency department visit, please see their documentation. (Please note that portions of this note may have been completed with a voice recognition program. Efforts were made to edit the dictations but occasionally words are mis-transcribed.) Hugh Cesar MD [employer] Hugh Cesar MD 10/13/20 2259 [facility] Fecal Occult,Stool Single Sp econ 10-13-2020 Fecal Occult,Stool Single Spec Positive Normal Negative [facility] Comment on above: Performed By: #### Fernando Hammond CMP3M #### [facility] [address] [place] [address] Hemogram w/ Autodiffon 10-13 Abs Baso Cnt 0.0 10*3/uL Normal 0.0-0.2 [facility] Comment on above: Performed By: #### Fernando Hammond CMP3M #### [facility] [address] [place] [address] Abs Neutrophile Cnt 7.2 10*3/uL High 1.8-7.0 [facility] Comment on above: Performed By: #### Fernando Hammond CMP3M #### [facility] [address] [place] [address] Basophils/100 WBC (Bld) 0.1 % Normal 0.0-2.0 [facility] Comment on above: Performed By: #### Fernando Hammond CMP3M #### [facility] [address] [place] [address] Eosinophils (Bld) [#/Vol] 0.0 10*3/uL Normal 0.0-0.5 [facility] Comment on above: Performed By: #### Fernando Hammond CMP3M #### [facility] [address] [place] [address] Eosinophils/100 WBC (Bld) 0.0 % Low 1.0-6.0 [facility] Comment on above: Performed By: #### Fernando Hammond CMP3M #### [facility] [address] [place] [address] Erythrocyte distribution width (RBC) [Ratio] 13.8 % Normal 11.5-14.5 [facility] Comment on above: Performed By: #### Fernando Hammond CMP3M #### [facility] [address] [place] [address] Granulocytes/100 WBC (Bld) 87.0 % High 40.0-80.0 [facility] Comment on above: Performed By: #### Fernando Hammond CMP3M #### [facility] [address] [place] [address] Hematocrit (Bld) [Volume fraction] 47.8 % High 35.0-47.0 [facility] Comment on above: Performed By: #### Fernando Hammond CMP3M #### [facility] [address] [place] [address] Hemoglobin (Bld) [Mass/Vol] 16.0 g/dL Normal 11.7-16.0 [facility] Comment on above: Performed By: #### Fernando Hammond CMP3M #### [facility] [address] [place] [address] Lymphocytes (Bld) [#/Vol] 0.7 10*3/uL Low 1.0-4.3 [facility] Comment on above: Performed By: #### Fernando Hammond CMP3M #### [facility] [address] [place] [address] Lymphocytes/100 WBC (Bld) 8.9 % Low 20.0-40.0 [facility] Comment on above: Performed By: #### Fernando Hammond CMP3M #### [facility] [address] [place] [address] MCH (RBC) [Entitic mass] 33.6 pg Normal 26.0-34.0 [facility] Comment on above: Performed By: #### Fernando Hammond CMP3M #### [facility] [address] [place] [address] MCHC 33.4 % Normal 32.0-36.0 [facility] Comment on above: Performed By: #### Fernando Hammond CMP3M #### [facility] [address] [place] [address] MCV (RBC) [Entitic vol] 100.9 fL High 79.0-98.0 [facility] Comment on above: Performed By: #### Fernando Hammond CMP3M #### [facility] [address] [place] [address] Monocytes (Bld) [#/Vol] 0.3 10*3/uL Normal 0.0-0.8 [facility] Comment on above: Performed By: #### Fernando Hammond CMP3M #### [facility] [address] [place] [address] Monocytes/100 WBC (Bld) 4.0 % Normal 2.0-10.0 [facility] Comment on above: Performed By: #### Fernando G3 CMP3M #### [facility] [address] [place] [address] Platelet mean volume (Bld) [Entitic vol] 7.6 fL Normal 7.4-10.4 [facility] Comment on above: Performed By: #### Fernando Hammond CMP3M #### [facility] [address] [place] [address] Platelets (Bld) [#/Vol] 302 10*3/uL Normal 140-440 [facility] Comment on above: Performed By: #### Fernando Hammond CMP3M #### [facility] [address] [place] [address] RBC (Bld) [#/Vol] 4.74 10*6/uL Normal 3.80-5.20 [facility] Comment on above: Performed By: #### Fernando Hammond CMP3M #### [facility] [address] [place] [address] WBC (Bld) [#/Vol] 8.3 10*3/uL Normal 3.6-10.7 [facility] Comment on above: Performed By: #### Fernando Hammond CMP3M #### [facility] [address] [place] [address] Lactic Acidon 10-13-2020 Lactate [Moles/Vol] 3.9 mmol/L Critically high 0.7-2.0 [facility] Comment on above: Performed By: #### B MP3M #### [facility] [address] [place] [address] Blood Pressure Cuff Sizeon 0 09-10-2020 Blood Pressure Cuff Size Adult [facility] Work Phone: Tobacco Screening.on Tobacco use status [facility] b) No [facility] Work Phone: Tobacco Screening.on Fall risk assessment a) [facility] the [facility] Work [facility]: [facility] use status [facility] b) No [facility] Work Phone: Lipid Panelon 03-12-2020 Cholesterol [Mass/Vol] 148 mg/dL 0 - 199 [facility] Work Phone: Comment on above: . AGE DESIRABLE BORD MEL HIGH HIGH 0-19 Y 0 - 169 170 - 199 >/= 200 20-24 Y 0 - 189 190 - 224 >/= 225 >24 Y 0 - 199 200 - 239 >/= 240 All ranges are based on fasting samples. Specific therapeutic targets will vary based on patient-specific cardiac risk.. Pediatric guidelines reference:Pediatrics 2011, 128(S5). Adult guidelines reference: NCEP ATPIII Guidelines, LAURA 2001, 258:2486-97. Venipuncture immediately after or during the administration of Metamizole may lead to falsely low results. Testing should be performed immediately prior to Metamizole dosing. Cholesterol in HDL [Mass/Vol] 40.7 mg/dL [facility] Work Phone: Comment on above: . AGE VERY LOW LOW N ORMAL HIGH 0-19 Y < 35 < 40 40-45 ---- 20- 24 Y ---- < 40 >45 ---- >24 Y ---- < 40 40-60 >60. Cholesterol in LDL [Mass/Vol] 76 mg/dL 0 - 99 [facility] Work Phone: Comment on above: . NEAR BORD AGE TORI RABLE OPTIMAL HIGH HIGH VERY HIGH 0-19 Y 0 - 109 --- 110-129 >/= 130 ---- 20-24 Y 0 - 119 --- 120-159 >/= 160 ---- >24 Y 0 - 99 100-129 130-159 160-189 >/=190. Cholesterol.total/Cho lesterol in HDL [Mass ratio] 3.6 {ratio} [facility] Work Phone: Comment on above: REF VALUESDESIRABLE < 3.4HIGH RISK > 5.0 Triglyceride [Mass/Vol] 159 mg/dL above high threshold 0 - 149 [facility] Work Phone: Comment on above: . AGE DESIRABLE BORD MEL HIGH HIGH VERY HIGH 0 D-90 D 19 - 174 ---- ---- ----91 D- 9 Y 0 - 74 75 - 99 >/= 100 ---- 10-19 Y 0 - 89 90 - 129 >/= 130 ---- 20-24 Y 0 - 114 115 - 149 >/= 150 ---- >24 Y 0 - 149 150 - 199 200- 499 >/= 500. Venipuncture immediately after or during the administration of Metamizole may lead to falsely low results. Testing should be performed immediately prior to Metamizole dosing. Lipid Panel 32 mg/dL 0 - 40 [facility] Work Phone: Metabolic Panelon 03-12-2020 ALP [Catalytic activity/Vol] 54 U/L 33 - 136 [facility] Work Phone: Anion gap [Moles/Vol] 16 mmol/L 10 - 20 [facility] Work Phone: Bilirubin [Mass/Vol] 0.6 mg/dL 0.0 - 1.2 [facility] Work Phone: Calcium [Mass/Vol] 9.9 mg/dL 8.6 - 10.6 [facility] Work Phone: Chloride [Moles/Vol] 103 mmol/L 98 - 107 [facility] Work Phone: CO2 [Moles/Vol] 27 mmol/L 21 - 32 [facility] Work Phone: Creatinine [Mass/Vol] 1.18 mg/dL above high threshold See Below [facility] Work Phone: Comment on above: Reference Range: 0.5 0 - 1.05 Glucose [Mass/Vol] 76 mg/dL 74 - 99 [facility] Work Phone: Potassium [Moles/Vol] 4.2 mmol/L 3.5 - 5.3 [facility] Work Phone: Protein [Mass/Vol] 7.1 g/dL 6.4 - 8.2 [facility] Work Phone: Sodium [Moles/Vol] 142 mmol/L 136 - 145 [facility] Work Phone: Urea nitrogen [Mass/Vol] 28 mg/dL above high threshold 6 - 23 [facility] Work Phone: Otheron 03-12-2020 Albumin BCP dye [Mass/Vol] 4.0 g/dL 3.4 - 5.0 [facility] Work Phone: ALT With P-5'-P [Catalytic activity/Vol] 17 U/L 7 - 45 [facility] Work Phone: Comment on above: Patients treated wit h Sulfasalazine may generate falsely decreased results for ALT. AST With P-5'-P [Catalytic activity/Vol] 23 U/L 9 - 39 [facility] Work Phone: 44 {mL/min/1.73m2} Abnormal >60 [facility] Work Phone: 53 {mL/min/1.73m2} Abnormal >60 [facility] Work Phone: Comment on above: CALCULATIONS OF ALVARO MATED GFR ARE PERFORMED USING THE MDRD STUDY EQUATION FOR THE IDMS-TRACEABLE CREATININE METHODS. CLIN CHEM 2007;53:766-72 CT Abdomen and Pelvis with I V Contraston 11-10-2019 CT Abdomen and Pelvis W contrast IV Interpreted by: DAYAMI LOZANO11/10/19 15:55STUDY:CT Abdomen and Pelvis with IV Contrast; 11/10/2019 2:10 PM INDICATION:Diarrhea for one week. History of colitis, heart disease, high bloodpressure, open heart surgery, several bowel resections, appendixsurgery. COMPARISON:12/27/2018 US Renal; 10/12/2017 XR Left Hip with AP Pelvis; 07/02/2017CT Abdomen Pelvis. ORDERING CLINICIAN:SHIRA NEGRON DO TECHNIQUE:CT of the abdomen and pelvis was performed. Contiguous axial imageswere obtained at 3 mm slice thickness through the abdomen and pelvis. Coronal and sagittal reconstructions at 3 mm slice thickness wereperformed. Isovue 370 90 mL was administered intravenously. Oralcontrast was administered as a component of this study; the patientreceived approximately QUANTITY mL of TYPE OF CONTRAST by mouth. FINDINGS: LOWER CHEST:No cardiomegaly. No pericardial effusion. Subsegmental atelectasisin the lung bases. ABDOMEN: LIVER:No hepatomegaly. Smooth surface contour. Normal attenuation. BILE DUCTS:There is dilatation of the common bile duct. There is mildintrahepatic duct dilatation. GALLBLADDER:There is distention of the gallbladder. STOMACH:There is a large hiatal hernia with an intrathoracic stomach. Thehernia also appears to contain the pancreas. The stomach is organoaxial and is unchanged from 2018. PANCREAS:No masses or ductal dilatation. SPLEEN:No splenomegaly or focal splenic lesion. ADRENAL GLANDS:No thickening or nodules. KIDNEYS AND URETERS:Kidneys are normal in size and location. No renal or ureteralcalculi. PELVIS: BLADDER:No abnormalities identified. REPRODUCTIVE ORGANS:No abnormalities identified. BOWEL: There is thickening of the wall of the descending colon. This isbest seen on series 201, slice 64. The cecum does appear to beflipped up into the right upper quadrant. There is dilatedfluid-filled distal small bowel. VESSELS:No abnormalities identified. Abdominal aorta is normal in caliber. PERITONEUM/RETROPERITONEUM/L YMPH NODES:No free fluid. No pneumoperitoneum. No lymphadenopathy. ABDOMINAL WALL:No abnormalities identified. SOFT TISSUES: No abnormalities identified. BONES:There is compression fracture at L1. IMPRESSION:Focal thickening of the descending colon consistent with focalcolitis. Cecum in the right upper quadrant. There does appear to be dilatedfluid-filled small bowel. This does not appear to involve theterminal ileum and therefore this most likely does not represent acecal volvulus but an early small bowel obstruction cannot beexcluded. Large hiatal hernia containing the stomach as well as the pancreas. There is distention of the gallbladder with dilatation of the biliarytree. Diffuse degenerative changes of the lumbosacral spine with compressionfracture at L1. This is unchanged from 2018. Signed by Dayami Lozano MDElectronically signed by: DAYAMI LOZANO 10/01/20 15:55 Normal [facility] Work Phone: Comment on above: ORDER REVISED TO A C T ABDOMEN AND PELVIS W IV CONTRAST BY RADIOLOGIST; Original Order Number: [id number] Complete Blood Count + Alvino fatima 11-10-2019 Basophils (Bld) [#/Vol] 0.05 {x10E9/L} See Below [facility] Work Phone: Comment on above: Reference Range: 0.0 0 - 0.10 Ordering Provider: Rachid JORDAN 63363 Basophils/100 WBC (Bld) 0.6 % 0.0 - 2.0 [facility] Work Phone: Comment on above: Ordering Provider: Rachid JORDAN 27580 Eosinophils (Bld) [#/Vol] 0.12 {x10E9/L} See Below [facility] Work Phone: Comment on above: Reference Range: 0.0 0 - 0.40 Ordering Provider: Rachid JORDAN 43906 Eosinophils/100 WBC (Bld) 1.5 % 0.0 - 6.0 [facility] Work Phone: Comment on above: Ordering Provider: Rachid JORDAN 20541 Erythrocyte distribution width (RBC) [Ratio] 13.2 % See Below [facility] Work Phone: Comment on above: Reference Range: 11. 5 - 14.5 Ordering Provider: Rachid JORDAN 88231 Hematocrit (Bld) [Volume fraction] 40.7 % See Below [facility] Work Phone: Comment on above: Reference Range: 36. 0 - 46.0 Ordering Provider: Rachid JORDAN 40816 Hemoglobin (Bld) [Mass/Vol] 12.6 g/dL See Below [facility] Work Phone: Comment on above: Reference Range: 12. 0 - 16.0 Ordering Provider: Rachid JORDAN 09802 Lymphocytes (Bld) [#/Vol] 2.25 {x10E9/L} See Below [facility] Work Phone: Comment on above: Reference Range: 0.8 0 - 3.00 Ordering Provider: Rachid JORDAN 65990 Lymphocytes/100 WBC (Bld) 27.3 % See Below [facility] Work Phone: Comment on above: Reference Range: 13. 0 - 44.0 Ordering Provider: Rachid JORDAN 63537 MCHC (RBC) [Mass/Vol] 31.0 g/dL below low threshold See Below [facility] Work Phone: Comment on above: Reference Range: 32. 0 - 36.0 Ordering Provider: Rachid JORDAN 67421 MCV (RBC) [Entitic vol] 105 fL above high threshold 80 - 100 [facility] Work Phone: Comment on above: Ordering Provider: Rachid JORDAN 34570 Monocytes (Bld) [#/Vol] 0.57 {x10E9/L} See Below [facility] Work Phone: Comment on above: Reference Range: 0.0 5 - 0.80 Ordering Provider: Rachid JORDAN 85615 Monocytes/100 WBC (Bld) 6.9 % 2.0 - 10.0 [facility] Work Phone: Comment on above: Ordering Provider: Rachid JORDAN 95177 Neutrophils (Bld) [#/Vol] 5.20 {x10E9/L} See Below [facility] Work Phone: Comment on above: Reference Range: 1.6 0 - 5.50 Ordering Provider: Rachid JORDAN 43711 Neutrophils/100 WBC (Bld) 63.0 % See Below [facility] Work Phone: Comment on above: Reference Range: 40. 0 - 80.0 Ordering Provider: Rachid JORDAN 80757 Platelets (Bld) [#/Vol] 288 {x10E9/L} 150 - 450 [facility] Work Phone: Comment on above: Platelet count may b e higher than reported due to presence of PlateletClumps. Ordering Provider: Rachid JORDAN 49665 RBC (Bld) [#/Vol] 3.87 {x10E12/L} below low threshold See Below [facility] Work Phone: Comment on above: Reference Range: 4.0 0 - 5.20 Ordering Provider: Rachid JORDAN 79686 WBC (Bld) [#/Vol] 0.0 {/100_WBC} 0.0 - 0.0 [facility] Work Phone: Comment on above: Ordering Provider: Rachid JORDAN 09824 WBC (Bld) [#/Vol] 8.3 {x10E9/L} 4.4 - 11.3 [facility] Work Phone: Comment on above: Ordering Provider: Rachid JORDAN 55895 Complete Blood Count + Differential 0.7 % 0.0 - 0.9 [facility] Work Phone: Comment on above: Immature Granulocyte Count (IG) includes promyelocytes, myelocytes and metamyelocytes but does not include bands. Percent differential counts (%) should be interpreted in the context of the absolute cell counts (cells/L). Ordering Provider: Rachid JORDAN 98731 Lipase, Serumon 11-10-2019 Lipase [Catalytic activity/Vol] 37 U/L 9 - 82 [facility] Work Phone: Comment on above: Venipuncture immedia tely after or during the administration of Metamizole may lead to falsely low results. Testing should be performed immediately prior to Metamizole dosing. I-jdlzya-u-benzoquinone imine (metabolite of Acetaminophen) will generate erroneously low results in samples for patients that have taken toxic doses of acetaminophen. Ordering Provider: Rachid JORDAN [id number] Metabolic Panelon 11-10-2019 ALP [Catalytic activity/Vol] 75 U/L 33 - 136 [facility] Work Phone: Comment on above: Ordering Provider: Rachid JORDAN [id number] Anion gap [Moles/Vol] 16 mmol/L 10 - 20 [facility] Work Phone: Comment on above: Ordering Provider: Rachid JORDAN 42805 Bilirubin [Mass/Vol] 0.6 mg/dL 0.0 - 1.2 [facility] Work Phone: Comment on above: Ordering Provider: Rachid JORDAN 66626 Calcium [Mass/Vol] 9.9 mg/dL 8.6 - 10.3 [facility] Work Phone: Comment on above: Ordering Provider: Rachid JORDAN 41829 Chloride [Moles/Vol] 99 mmol/L 98 - 107 [facility] Work Phone: Comment on above: Ordering Provider: Rachid JORDAN 89027 CO2 [Moles/Vol] 25 mmol/L 21 - 32 [facility] Work Phone: Comment on above: Ordering Provider: Rachid JORDAN 07451 Creatinine [Mass/Vol] 0.95 mg/dL See Below [facility] Work Phone: Comment on above: Reference Range: 0.5 0 - 1.05 Ordering Provider: Rachid JORDAN 72447 Glucose [Mass/Vol] 105 mg/dL above high threshold 74 - 99 [facility] Work Phone: Comment on above: Ordering Provider: Rachid JORDAN 09934 Potassium [Moles/Vol] 4.8 mmol/L 3.5 - 5.3 [facility] Work Phone: Comment on above: MILD HEMOLYSIS DETEC ADE. The result may be falsely elevated due tohemolysis or other interferents. Clinical correlation is recommended.Repeat testing may be considered. Ordering Provider: Rachid JORDAN 38832 Protein [Mass/Vol] 8.2 g/dL 6.4 - 8.2 [facility] Work Phone: Comment on above: Ordering Provider: Rachid JORDAN 33632 Sodium [Moles/Vol] 135 mmol/L below low threshold 136 - 145 [facility] Work Phone: Comment on above: Ordering Provider: Rachid JORDAN 26185 Urea nitrogen [Mass/Vol] 18 mg/dL 6 - 23 [facility] Work Phone: Comment on above: Ordering Provider: Rachid JORDAN 12960 Otheron 11-10-2019 Albumin BCP dye [Mass/Vol] 3.7 g/dL 3.4 - 5.0 [facility] Work Phone: Comment on above: Ordering Provider: Rachid JORDAN 34682 ALT With P-5'-P [Catalytic activity/Vol] 13 U/L 7 - 45 [facility] Work Phone: Comment on above: Patients treated wit h Sulfasalazine may generate falsely decreased results for ALT. Ordering Provider: Rachid JORDAN 25077 AST With P-5'-P [Catalytic activity/Vol] 25 U/L 9 - 39 [facility] Work Phone: Comment on above: MILD HEMOLYSIS DETEC ADE. The result may be falsely elevated due tohemolysis or other interferents. Clinical correlation is recommended.Repeat testing may be considered. Ordering Provider: Rachid JORDAN 02464 56 {mL/min/1.73m2} Abnormal >60 [facility] Work Phone: Comment on above: Ordering Provider: Rachid JORDAN 79912 68 {mL/min/1.73m2} >60 [facility] Work Phone: Comment on above: CALCULATIONS OF ALVARO MATED GFR ARE PERFORMED USING THE MDRD STUDY EQUATION FOR THE IDMS-TRACEABLE CREATININE METHODS. CLIN CHEM 2007;53:766-72 Ordering Provider: Rachid JORDAN 74502 Urinalysison 11-10-2019 Appearance (U) CLEAR CLEAR [facility] Work Phone: Comment on above: Ordering Provider: Rachid JORDAN 41203 Color (U) STRAW See Below [facility] Work Phone: Comment on above: Reference Range: STR AW,YELLOW Ordering Provider: Rachid JORDAN 69343 Glucose Ql (U) Negative NEGATIVE [facility] Work Phone: Comment on above: Ordering Provider: Rachid JORDAN 73436 Ketones Ql (U) Negative NEGATIVE [facility] Work Phone: Comment on above: Ordering Provider: Rachid JORDAN 50881 Leukocyte esterase Test strip Ql (U) Negative NEGATIVE [facility] Work Phone: Comment on above: Ordering Provider: Rachid JORDAN 64821 pH (U) 6.0 [pH] 5.0 - 8.0 [facility] Work Phone: Comment on above: Ordering Provider: Rachid JORDAN 70019 Protein (U) [Mass/Vol] Negative NEGATIVE [facility] Work Phone: Comment on above: Ordering Provider: Rachid JORDAN 72480 RBC (U) [#/Vol] SMALL (1+) Abnormal NEGATIVE [facility] Work Phone: Comment on above: Ordering Provider: Rachid JORDAN 42411 Specific gravity (U) [Rel density] 1.028 1 See Below [facility] Work Phone: Comment on above: Reference Range: 1.0 05 - 1.035 Ordering Provider: Rachid JORDAN 81481 Urinalysis <2.0 0.0 - 1.9 [facility] Work Phone: Comment on above: Ordering Provider: Rachid JORDAN 12968 Urinalysis Negative NEGATIVE [facility] Work Phone: Comment on above: Ordering Provider: Rachid JORDAN 48538 Urinalysis, Microscopicon RBC (Bld) [#/Vol] <1 0-5 -[facility] Work Phone: Comment on above: Ordering Provider: Rachid JORDAN 17492 Urinalysis, Microscopic <1 0-5 [facility] Work Phone: Comment on above: Ordering Provider: Rachid JORDAN 77331 Urinalysis, Microscopic 1 {/HPF} [facility] Work Phone: Comment on above: Ordering Provider: Rachid JORDAN 74278 CRP, High Sensitivityon 10-12 CRP High sensitivity method [Mass/Vol] mg/L Abnormal [facility] Work Phone: Comment on above: hsCRP INTERPRETATION mg/L < 1.0 LOW RELATIVE RISK OF CVD 1.0-3.0 AVERAGE RELATIVE RISK OF CVD > 3.0 HIGH RELATIVE RISK OF CVD Source:KATIE TLeigh Gaona. et al. CIRCULATION 2003;[id number]. Complete Blood Count + [facility] 11-09-2019 Basophils (Bld) [#/Vol] 0.06 {x10E9/L} See Below [facility] Work Phone: Comment on above: Reference Range: 0.0 0 - 0.10 Basophils/100 WBC (Bld) 0.6 % 0.0 - 2.0 [facility] Work Phone: Eosinophils (Bld) [#/Vol] 0.20 {x10E9/L} See Below [facility] Work Phone: Comment on above: Reference Range: 0.0 0 - 0.40 Eosinophils/100 WBC (Bld) 2.0 % 0.0 - 6.0 [facility] Work Phone: Erythrocyte distribution width (RBC) [Ratio] 13.2 % See Below [facility] Work Phone: Comment on above: Reference Range: 11. 5 - 14.5 Hematocrit (Bld) [Volume fraction] 38.6 % See Below [facility] Work Phone: Comment on above: Reference Range: 36. 0 - 46.0 Hemoglobin (Bld) [Mass/Vol] 12.2 g/dL See Below [facility] Work Phone: Comment on above: Reference Range: 12. 0 - 16.0 Lymphocytes (Bld) [#/Vol] 2.47 {x10E9/L} See Below [facility] Work Phone: Comment on above: Reference Range: 0.8 0 - 3.00 Lymphocytes/100 WBC (Bld) 24.4 % See Below [facility] Work Phone: Comment on above: Reference Range: 13. 0 - 44.0 MCHC (RBC) [Mass/Vol] 31.6 g/dL below low threshold See Below [facility] Work Phone: Comment on above: Reference Range: 32. 0 - 36.0 MCV (RBC) [Entitic vol] 106 fL above high threshold 80 - 100 [facility] Work Phone: Monocytes (Bld) [#/Vol] 0.84 {x10E9/L} above high threshold See Below [facility] Work Phone: Comment on above: Reference Range: 0.0 5 - 0.80 Monocytes/100 WBC (Bld) 8.3 % 2.0 - 10.0 [facility] Work Phone: Neutrophils/100 WBC (Bld) 64.2 % See Below [facility] Work Phone: Comment on above: Reference Range: 40. 0 - 80.0 Platelets (Bld) [#/Vol] 321 {x10E9/L} 150 - 450 [facility] Work Phone: RBC (Bld) [#/Vol] 3.64 {x10E12/L} below low threshold See Below [facility] Work Phone: Comment on above: Reference Range: 4.0 0 - 5.20 WBC (Bld) [#/Vol] 0.0 {/100_WBC} 0.0-0.0 [facility] Work Phone: WBC (Bld) [#/Vol] 10.1 {x10E9/L} 4.4 - 11.3 [facility] Work Phone: Complete Blood Count + Differential 6.51 {x10E9/L} above high threshold See Below [facility] Work Phone: Comment on above: Reference Range: 1.6 0 - 5.50 Complete Blood Count + Differential 0.5 % 0.0 - 0.9 [facility] Work Phone: Comment on above: Immature Granulocyte Count (IG) includes promyelocytes, myelocytes and metamyelocytes but does not include bands. Percent differential counts (%) should be interpreted in the context of the absolute cell counts (cells/L). Metabolic Panelon 11-09-2019 ALP [Catalytic activity/Vol] 91 U/L 33 - 136 [facility] Work Phone: Anion gap [Moles/Vol] 15 mmol/L 10 - 20 [facility] Work Phone: Bilirubin [Mass/Vol] 0.5 mg/dL 0.0 - 1.2 [facility] Work Phone: Calcium [Mass/Vol] 9.0 mg/dL 8.6 - 10.6 [facility] Work Phone: Chloride [Moles/Vol] 99 mmol/L 98 - 107 [facility] Work Phone: CO2 [Moles/Vol] 27 mmol/L 21 - 32 [facility] Work Phone: Creatinine [Mass/Vol] 0.91 mg/dL See Below [facility] Work Phone: Comment on above: Reference Range: 0.5 0 - 1.05 Glucose [Mass/Vol] 115 mg/dL above high threshold 74 - 99 [facility] Work Phone: Potassium [Moles/Vol] 4.3 mmol/L 3.5 - 5.3 [facility] Work Phone: Protein [Mass/Vol] 7.5 g/dL 6.4 - 8.2 [facility] Work Phone: Sodium [Moles/Vol] 137 mmol/L 136 - 145 [facility] Work Phone: Urea nitrogen [Mass/Vol] 20 mg/dL 6 - 23 [facility] Work Phone: Otheron 11-09-2019 Albumin BCP dye [Mass/Vol] 3.8 g/dL 3.4 - 5.0 [facility] Work Phone: ALT With P-5'-P [Catalytic activity/Vol] 14 U/L 7 - 45 [facility] Work Phone: Comment on above: Patients treated wit h Sulfasalazine may generate falsely decreased results for ALT. AST With P-5'-P [Catalytic activity/Vol] 19 U/L 9 - 39 [facility] Work Phone: 71 {mL/min/1.73m2} >60 [facility] Work Phone: Comment on above: CALCULATIONS OF ALVARO MATED GFR ARE PERFORMED USING THE MDRD STUDY EQUATION FOR THE IDMS-TRACEABLE CREATININE METHODS. CLIN CHEM 2007;53:[id number] 59 {mL/min/1.73m2} Abnormal >60 [facility] Work Phone: Sedimentation Rate, Erythroc yteon 11-09-2019 ESR (Bld) [Velocity] 91 mm/h above high threshold 0 - 30 [facility] Work Phone: Cardiacon 09-06-2019 Natriuretic peptide B (Bld) [Mass/Vol] 167 pg/mL above high threshold 0 - 99 [facility] Work Phone: Comment on above: . <100 pg/mL - Heart failure -593 pg/mL - Intermediate probability of acute heart. failure exacerbation. Correlate with clinical. context and patient history. >=300 pg/mL - Heart Failure likely. Correlate with clinical. context and patient history. Biotin interference may cause falsely decreased results. Patients taking a Biotin dose of up to 5 mg/day should refrain from taking Biotin for 24 hours before sample collection. Providers may contact their local laboratory for further information. Hematologyon 09-06-2019 Hematocrit (Bld) [Volume fraction] 40.1 % See Below [facility] Work Phone: Comment on above: Reference Range: 36. 0 - 46.0 Hemoglobin (Bld) [Mass/Vol] 13.0 g/dL See Below [facility] Work Phone: Comment on above: Reference Range: 12. 0 - 16.0 MCV (RBC) [Entitic vol] 104 fL above high threshold 80 - 100 [facility] Work Phone: Platelets (Bld) [#/Vol] 225 {x10E9/L} 150 - 450 [facility] Work Phone: RBC (Bld) [#/Vol] 3.86 {x10E12/L} below low threshold See Below [facility] Work Phone: Comment on above: Reference Range: 4.0 0 - 5.20 WBC (Bld) [#/Vol] 6.4 {x10E9/L} 4.4 - 11.3 [facility] Work Phone: WBC (Bld) [#/Vol] 0.0 {/100_WBC} 0.0-0.0 [facility] Work Phone: Metabolic Panelon 09-06-2019 Anion gap [Moles/Vol] 22 mmol/L above high threshold 10 - 20 [facility] Work Phone: Calcium [Mass/Vol] 10.4 mg/dL 8.6 - 10.6 [facility] Work Phone: Chloride [Moles/Vol] 101 mmol/L 98 - 107 [facility] Work Phone: CO2 [Moles/Vol] 20 mmol/L below low threshold 21 - 32 [facility] Work Phone: Creatinine [Mass/Vol] 1.19 mg/dL above high threshold See Below [facility] Work Phone: Comment on above: Reference Range: 0.5 0 - 1.05 Glucose [Mass/Vol] 87 mg/dL 74 - 99 [facility] Work Phone: Potassium [Moles/Vol] 5.7 mmol/L above high threshold 3.5 - 5.3 [facility] Work Phone: Comment on above: MILD HEMOLYSIS DETEC ADE. The result may be falsely elevated due tohemolysis or other interferents. Clinical correlation is recommended.Repeat testing may be considered. Sodium [Moles/Vol] 137 mmol/L 136 - 145 [facility] Work Phone: Urea nitrogen [Mass/Vol] 23 mg/dL 6 - 23 [facility] Work Phone: Otheron 09-06-2019 Erythrocyte distribution width (RBC) [Ratio] 13.6 % See Below [facility] Work Phone: Comment on above: Reference Range: 11. 5 - 14.5 MCHC (RBC) [Mass/Vol] 32.4 g/dL See Below [facility] Work Phone: Comment on above: Reference Range: 32. 0 - 36.0 43 {mL/min/1.73m2} Abnormal >60 [facility] Work Phone: 52 {mL/min/1.73m2} Abnormal >60 [facility] Work Phone: Comment on above: CALCULATIONS OF ALVARO MATED GFR ARE PERFORMED USING THE MDRD STUDY EQUATION FOR THE IDMS-TRACEABLE CREATININE METHODS. CLIN CHEM 2007;53:[id number] Thyroidon 09-06-2019 TSH Qn 2.22 {mIU/L} See Below [facility] Work Phone: Comment on above: Reference Range: 0.4 4 - 3.98 TSH testing is performed using different testing methodology at [facility] than at other [facility]. Direct result comparisons should only be made within the same method. Complete Blood Count + Alivno fatima 12-16-2018 Basophils (Bld) [#/Vol] 0.06 {x10E9/L} See Below [facility] Work Phone: Comment on above: Reference Range: 0.0 0 - 0.10 Basophils/100 WBC (Bld) 0.8 % 0.0 - 2.0 [facility] Work Phone: Eosinophils (Bld) [#/Vol] 0.09 {x10E9/L} See Below [facility] Work Phone: Comment on above: Reference Range: 0.0 0 - 0.40 Eosinophils/100 WBC (Bld) 1.2 % 0.0 - 6.0 [facility] Work Phone: Erythrocyte distribution width (RBC) [Ratio] 13.1 % See Below [facility] Work Phone: Comment on above: Reference Range: 11. 5 - 14.5 Hematocrit (Bld) [Volume fraction] 35.7 % below low threshold See Below [facility] Work Phone: Comment on above: Reference Range: 36. 0 - 46.0 Hemoglobin (Bld) [Mass/Vol] 11.0 g/dL below low threshold See Below [facility] Work Phone: Comment on above: Reference Range: 12. 0 - 16.0 Lymphocytes (Bld) [#/Vol] 3.17 {x10E9/L} above high threshold See Below [facility] Work Phone: Comment on above: Reference Range: 0.8 0 - 3.00 Lymphocytes/100 WBC (Bld) 40.6 % See Below [facility] Work Phone: Comment on above: Reference Range: 13. 0 - 44.0 MCHC (RBC) [Mass/Vol] 30.8 g/dL below low threshold See Below [facility] Work Phone: Comment on above: Reference Range: 32. 0 - 36.0 MCV (RBC) [Entitic vol] 109 fL above high threshold 80 - 100 [facility] Work Phone: Monocytes (Bld) [#/Vol] 0.34 {x10E9/L} See Below [facility] Work Phone: Comment on above: Reference Range: 0.0 5 - 0.80 Monocytes/100 WBC (Bld) 4.4 % 2.0 - 10.0 [facility] Work Phone: Neutrophils (Bld) [#/Vol] 4.08 {x10E9/L} See Below [facility] Work Phone: Comment on above: Reference Range: 1.6 0 - 5.50 Neutrophils/100 WBC (Bld) 52.1 % See Below [facility] Work Phone: Comment on above: Reference Range: 40. 0 - 80.0 Platelets (Bld) [#/Vol] 362 {x10E9/L} 150 - 450 [facility] Work Phone: RBC (Bld) [#/Vol] 3.27 {x10E12/L} below low threshold See Below [facility] Work Phone: Comment on above: Reference Range: 4.0 0 - 5.20 WBC (Bld) [#/Vol] 0.0 {/100_WBC} 0.0-0.0 [facility] Work Phone: WBC (Bld) [#/Vol] 7.8 {x10E9/L} 4.4 - 11.3 [facility] Work Phone: Complete Blood Count + Differential 0.9 % 0.0 - 0.9 [facility] Work Phone: Comment on above: Percent differential counts (%) should be interpreted in the context of the absolute cell counts (cells/L). Complete Blood Count + Alvino fatima 12-09-2018 Basophils (Bld) [#/Vol] 0.04 {x10E9/L} See Below [facility] Work Phone: Comment on above: Reference Range: 0.0 0 - 0.10 Basophils/100 WBC (Bld) 0.5 % 0.0 - 2.0 [facility] Work Phone: Eosinophils (Bld) [#/Vol] 0.20 {x10E9/L} See Below [facility] Work Phone: Comment on above: Reference Range: 0.0 0 - 0.40 Eosinophils/100 WBC (Bld) 2.4 % 0.0 - 6.0 [facility] Work Phone: Erythrocyte distribution width (RBC) [Ratio] 13.3 % See Below [facility] Work Phone: Comment on above: Reference Range: 11. 5 - 14.5 Hematocrit (Bld) [Volume fraction] 32.1 % below low threshold See Below [facility] Work Phone: Comment on above: Reference Range: 36. 0 - 46.0 Hemoglobin (Bld) [Mass/Vol] 10.0 g/dL below low threshold See Below [facility] Work Phone: Comment on above: Reference Range: 12. 0 - 16.0 Lymphocytes (Bld) [#/Vol] 2.28 {x10E9/L} See Below [facility] Work Phone: Comment on above: Reference Range: 0.8 0 - 3.00 Lymphocytes/100 WBC (Bld) 26.8 % See Below [facility] Work Phone: Comment on above: Reference Range: 13. 0 - 44.0 MCHC (RBC) [Mass/Vol] 31.2 g/dL below low threshold See Below [facility] Work Phone: Comment on above: Reference Range: 32. 0 - 36.0 MCV (RBC) [Entitic vol] 107 fL above high threshold 80 - 100 [facility] Work Phone: Monocytes (Bld) [#/Vol] 0.63 {x10E9/L} See Below [facility] Work Phone: Comment on above: Reference Range: 0.0 5 - 0.80 Monocytes/100 WBC (Bld) 7.4 % 2.0 - 10.0 [facility] Work Phone: Neutrophils (Bld) [#/Vol] 5.30 {x10E9/L} See Below [facility] Work Phone: Comment on above: Reference Range: 1.6 0 - 5.50 Neutrophils/100 WBC (Bld) 62.3 % See Below [facility] Work Phone: Comment on above: Reference Range: 40. 0 - 80.0 Platelets (Bld) [#/Vol] 298 {x10E9/L} 150 - 450 [facility] Work Phone: RBC (Bld) [#/Vol] 2.99 {x10E12/L} below low threshold See Below [facility] Work Phone: Comment on above: Reference Range: 4.0 0 - 5.20 WBC (Bld) [#/Vol] 0.0 {/100_WBC} 0.0-0.0 [facility] Work Phone: WBC (Bld) [#/Vol] 8.5 {x10E9/L} 4.4 - 11.3 [facility] Work Phone: Complete Blood Count + Differential 0.6 % 0.0 - 0.9 [facility] Work Phone: Comment on above: Percent differential counts (%) should be interpreted in the context of the absolute cell counts (cells/L). Folate, Serumon 12-09-2018 Folate [Mass/Vol] ng/mL >5.0 [facility] Work Phone: Comment on above: Patients receiving m ore than 5 mg/day of biotin may have interference in test results. A sample should be taken no sooner than eight hours after previous dose. Contact the testing laboratory for additional information. Metabolic Panelon 12-09-2018 Anion gap [Moles/Vol] 14 mmol/L 10 - 20 [facility] Work Phone: Calcium [Mass/Vol] 10.0 mg/dL 8.6 - 10.6 [facility] Work Phone: Chloride [Moles/Vol] 102 mmol/L 98 - 107 [facility] Work Phone: CO2 [Moles/Vol] 23 mmol/L 21 - 32 [facility] Work Phone: Creatinine [Mass/Vol] 2.05 mg/dL above high threshold See Below [facility] Work Phone: Comment on above: Reference Range: 0.5 0 - 1.05 Glucose [Mass/Vol] 88 mg/dL 74 - 99 [facility] Work Phone: Potassium [Moles/Vol] 5.0 mmol/L 3.5 - 5.3 [facility] Work Phone: Sodium [Moles/Vol] 134 mmol/L below low threshold 136 - 145 [facility] Work Phone: Urea nitrogen [Mass/Vol] 61 mg/dL above high threshold 6 - 23 [facility] Work Phone: Otheron 12-09-2018 28 {mL/min/1.73m2} Abnormal >60 [facility] Work Phone: Comment on above: CALCULATIONS OF ALVARO MATED GFR ARE PERFORMED USING THE MDRD STUDY EQUATION FOR THE IDMS-TRACEABLE CREATININE METHODS. CLIN CHEM 2007;53:[id number] 23 {mL/min/1.73m2} Abnormal >60 [facility] Work Phone: TSH - Thyroid Stimulating Ho malcolmkellen, Serumon 12-09-2018 TSH Qn 2.35 {mIU/L} See Below [facility] Work Phone: Comment on above: Reference Range: 0.4 4 - 3.98 TSH testing is performed using different testing methodology at [facility] than at other [facility]. Direct result comparisons should only be made within the same method.. Patients receiving more than 5 mg/day of biotin may have interference in test results. A sample should be taken no sooner than eight hours after previous dose. Contact [phone] for additional information. Urinalysison 12-09-2018 Appearance (U) CLEAR CLEAR [facility] Work Phone: Color (U) YELLOW See Below [facility] Work Phone: Comment on above: Reference Range: STR AW,YELLOW Glucose Ql (U) Negative NEGATIVE [facility] Work Phone: Ketones Ql (U) Negative NEGATIVE [facility] Work Phone: Leukocyte esterase Test strip Ql (U) SMALL (1+) Abnormal NEGATIVE [facility] Work Phone: pH (U) 5.0 [pH] 5.0 - 8.0 [facility] Work Phone: Protein (U) [Mass/Vol] Negative NEGATIVE [facility] Work Phone: RBC (U) [#/Vol] Negative NEGATIVE [facility] Work Phone: Specific gravity (U) [Rel density] 1.012 See Below [facility] Work Phone: Comment on above: Reference Range: 1.0 05 - 1.035 Urinalysis Negative NEGATIVE [facility] Work Phone: Urinalysis <2.0 0.0 - 1.9 [facility] Work Phone: Urinalysis, Microscopicon RBC (Bld) [#/Vol] <1 0-5 [facility] Work Phone: Urinalysis, Microscopic 6 {/HPF} Abnormal 0-5 [facility] Work Phone: Urinalysis, Microscopic 1 {/HPF} [facility] Work Phone: Urinalysis, Microscopic 2+ [facility] Work Phone: Vitamin B12, Serumon 019 Cobalamin (Vitamin B12) [Mass/Vol] 709 pg/mL 211 - 911 [facility] Work Phone: Hematologyon 11-30-2018 Hematocrit (Bld) [Volume fraction] 34.2 % below low threshold See Below [facility] Work Phone: Comment on above: Reference Range: 36. 0 - 46.0 Hemoglobin (Bld) [Mass/Vol] 10.6 g/dL below low threshold See Below [facility] Work Phone: Comment on above: Reference Range: 12. 0 - 16.0 MCV (RBC) [Entitic vol] 107 fL above high threshold 80 - 100 [facility] Work Phone: Platelets (Bld) [#/Vol] 348 {x10E9/L} 150 - 450 [facility] Work Phone: RBC (Bld) [#/Vol] 3.19 {x10E12/L} below low threshold See Below [facility] Work Phone: Comment on above: Reference Range: 4.0 0 - 5.20 WBC (Bld) [#/Vol] 9.7 {x10E9/L} 4.4 - 11.3 [facility] Work Phone: WBC (Bld) [#/Vol] 0.0 {/100_WBC} 0.0-0.0 [facility] Work Phone: Metabolic Panelon 11-30-2018 ALP [Catalytic activity/Vol] 61 U/L 33 - 136 [facility] Work Phone: Anion gap [Moles/Vol] 15 mmol/L 10 - 20 [facility] Work Phone: Bilirubin [Mass/Vol] 0.4 mg/dL 0.0 - 1.2 [facility] Work Phone: Calcium [Mass/Vol] 10.5 mg/dL 8.6 - 10.6 [facility] Work Phone: Chloride [Moles/Vol] 105 mmol/L 98 - 107 [facility] Work Phone: CO2 [Moles/Vol] 25 mmol/L 21 - 32 [facility] Work Phone: Creatinine [Mass/Vol] 1.65 mg/dL above high threshold See Below [facility] Work Phone: Comment on above: Reference Range: 0.5 0 - 1.05 Glucose [Mass/Vol] 82 mg/dL 74 - 99 [facility] Work Phone: Potassium [Moles/Vol] 4.3 mmol/L 3.5 - 5.3 [facility] Work Phone: Protein [Mass/Vol] 7.0 g/dL 6.4 - 8.2 [facility] Work Phone: Sodium [Moles/Vol] 141 mmol/L 136 - 145 [facility] Work Phone: Urea nitrogen [Mass/Vol] 43 mg/dL above high threshold 6 - 23 [facility] Work Phone: Otheron 11-30-2018 Albumin BCP dye [Mass/Vol] 3.6 g/dL 3.4 - 5.0 [facility] Work Phone: ALT With P-5'-P [Catalytic activity/Vol] 10 U/L 7 - 45 [facility] Work Phone: Comment on above: Patients treated wit h Sulfasalazine may generate falsely decreased results for ALT. AST With P-5'-P [Catalytic activity/Vol] 14 U/L 9 - 39 [facility] Work Phone: Erythrocyte distribution width (RBC) [Ratio] 13.6 % See Below [facility] Work Phone: Comment on above: Reference Range: 11. 5 - 14.5 MCHC (RBC) [Mass/Vol] 31.0 g/dL below low threshold See Below [facility] Work Phone: Comment on above: Reference Range: 32. 0 - 36.0 36 {mL/min/1.73m2} Abnormal >60 [facility] Work Phone: Comment on above: CALCULATIONS OF ALVARO MATED GFR ARE PERFORMED USING THE MDRD STUDY EQUATION FOR THE IDMS-TRACEABLE CREATININE METHODS. CLIN CHEM 2007;53:766-72 30 {mL/min/1.73m2} Abnormal >60 [facility] Work Phone: Hematologyon 05-26-2018 Hematocrit (Bld) [Volume fraction] 38.6 % See Below [facility] Work Phone: Comment on above: Reference Range: 36. 0 - 46.0 Hemoglobin (Bld) [Mass/Vol] 12.0 g/dL See Below [facility] Work Phone: Comment on above: Reference Range: 12. 0 - 16.0 MCV (RBC) [Entitic vol] 108 fL above high threshold 80 - 100 [facility] Work Phone: Platelets (Bld) [#/Vol] 245 {x10E9/L} 150 - 450 [facility] Work Phone: RBC (Bld) [#/Vol] 3.56 {x10E12/L} below low threshold See Below [facility] Work Phone: Comment on above: Reference Range: 4.0 0 - 5.20 WBC (Bld) [#/Vol] 6.9 {x10E9/L} 4.4 - 11.3 [facility] Work Phone: WBC (Bld) [#/Vol] 0.1 {/100_WBC} 0.0-0.0 [facility] Work Phone: Lipid Panelon 05-26-2018 Cholesterol [Mass/Vol] 165 mg/dL 0 - 199 [facility] Work Phone: Comment on above: . AGE DESIRABLE BORD MEL HIGH HIGH 0-19 Y 0 - 169 170 - 199 >/= 200 20-24 Y 0 - 189 190 - 224 >/= 225 >24 Y 0 - 199 200 - 239 >/= 240 All ranges are based on fasting samples. Specific therapeutic targets will vary based on patient-specific cardiac risk.. Pediatric guidelines reference:Pediatrics 2011, 128(S5). Adult guidelines reference: NCEP ATPIII Guidelines, LAURA 2001, 258:1216-97. Venipuncture immediately after or during the administration of Metamizole may lead to falsely low results. Testing should be performed immediately prior to Metamizole dosing. Cholesterol in HDL [Mass/Vol] 44.1 mg/dL [facility] Work Phone: Comment on above: . AGE VERY LOW LOW N ORMAL HIGH 0-19 Y < 35 < 40 40-45 ---- 20- 24 Y ---- < 40 >45 ---- >24 Y ---- < 40 40-60 >60. Cholesterol in LDL [Mass/Vol] 82 mg/dL 0 - 99 [facility] Work Phone: Comment on above: . NEAR BORD AGE TORI RABLE OPTIMAL HIGH HIGH VERY HIGH 0-19 Y 0 - 109 --- 110-129 >/= 130 ---- 20-24 Y 0 - 119 --- 120-159 >/= 160 ---- >24 Y 0 - 99 100-129 130-159 160-189 >/=190. Cholesterol.total/Cho lesterol in HDL [Mass ratio] 3.7 {ratio} [facility] Work Phone: Comment on above: REF VALUESDESIRABLE < 3.4HIGH RISK > 5.0 Triglyceride [Mass/Vol] 194 mg/dL above high threshold 0 - 149 [facility] Work Phone: Comment on above: . AGE DESIRABLE BORD MEL HIGH HIGH VERY HIGH 0 D-90 D 19 - 174 ---- ---- ----91 D- 9 Y 0 - 74 75 - 99 >/= 100 ---- 10-19 Y 0 - 89 90 - 129 >/= 130 ---- 20-24 Y 0 - 114 115 - 149 >/= 150 ---- >24 Y 0 - 149 150 - 199 200- 499 >/= 500. Venipuncture immediately after or during the administration of Metamizole may lead to falsely low results. Testing should be performed immediately prior to Metamizole dosing. Lipid Panel 39 mg/dL 0 - 40 [facility] Work Phone: Metabolic Panelon 05-26-2018 Anion gap [Moles/Vol] 15 mmol/L 10 - 20 [facility] Work Phone: Calcium [Mass/Vol] 10.0 mg/dL 8.6 - 10.6 [facility] Work Phone: Chloride [Moles/Vol] 105 mmol/L 98 - 107 [facility] Work Phone: CO2 [Moles/Vol] 26 mmol/L 21 - 32 [facility] Work Phone: Creatinine [Mass/Vol] 1.15 mg/dL above high threshold See Below [facility] Work Phone: Comment on above: Reference Range: 0.5 0 - 1.05 Glucose [Mass/Vol] 72 mg/dL below low threshold 74 - 99 [facility] Work Phone: Potassium [Moles/Vol] 4.8 mmol/L 3.5 - 5.3 [facility] Work Phone: Sodium [Moles/Vol] 141 mmol/L 136 - 145 [facility] Work Phone: Urea nitrogen [Mass/Vol] 29 mg/dL above high threshold 6 - 23 [facility] Work Phone: Otheron 05-26-2018 Erythrocyte distribution width (RBC) [Ratio] 13.6 % See Below [facility] Work Phone: Comment on above: Reference Range: 11. 5 - 14.5 MCHC (RBC) [Mass/Vol] 31.1 g/dL below low threshold See Below [facility] Work Phone: Comment on above: Reference Range: 32. 0 - 36.0 54 {mL/min/1.73m2} Abnormal >60 [facility] Work Phone: Comment on above: CALCULATIONS OF ALVARO MATED GFR ARE PERFORMED USING THE MDRD STUDY EQUATION FOR THE IDMS-TRACEABLE CREATININE METHODS. CLIN CHEM 2007;53:766-72 45 {mL/min/1.73m2} Abnormal >60 [facility] Work Phone: Vitamin D 25-Hydroxyon 05-26 Calcidiol [Mass/Vol] 38 ng/mL [facility] Work Phone: Comment on above: .DEFICIENCY: < 20 NG /MLINSUFFICIENCY: 20-29 NG/MLOPTIMUM LEVEL: 30-80 NG/MLPOSSIBLE TOXICITY: > 80 NG/MLTHIS ASSAY ACCURATELY QUANTIFIES THE SUM OFVITAMIN D3, 25-HYDROXY AND VIT D2,25-HYDROXY. LUMBAR COMP W FLEX/EX MIN 6V WSon 12-09-2017 LUMBAR COMP W FLEX/EX MIN 6VWS STUDY:LUMBAR COMP W FLEX/EX MIN 6VWS; 12/09/2017 11:10 amINDICATION:BACK PAIN.COMPARISON:09/24/[address] abdomen and pelvis 07/02/2017. GALLO CLINICIAN:Susie Ordoñez:AP, lateral, and coned-down views of the lumbosacral spine areprovided. Bilateral oblique views are also provided. Flexion andextension lateral views are also provided.Interval redemonstration of multiple compression deformities of thethoracolumbar spine including severe height loss of T8 and N86nnimxjtlz body and approximately 50% height loss of L1. These wereseen on CT abdomen pelvis dated 07/02/2017 consistent with chroniccompression deformities.Levoscoliosis of the lumbar spine apex centered at L2-L3. no definiteevidence of subluxation on neutral or flexion and extension views.Discogenic degenerative changes throughout the visualizedthoracolumbar spinemarked in severity.There is associated facet arthrosis predominately at the lower lumbarlevelsmarkedin severity.Note is made of atherosclerotic calcifications overlying theabdominal aorta and iliac vesselsIMPRESSION:Marked spondylosis of the visualized thoracolumbar spine withlevocurvature centered at L2-L3, but without evidence of subluxationincluding flexion or extension views.Redemonstration of compression deformities of T8, T10, and L1.Extensive vascular atherosclerotic calcifications of the visualizedabdominal aorta and the iliac arteries. Normal [facility] CBC AND DIFFERENTIALon 11-06 % AUTOMATED IMMATURE GRAN 0.3 % Normal 0.0 - 0.9 [facility] Comment on above: Result Comment: Perc ent differential counts (%) should be interpreted in the context of the absolute cell counts (cells/L). Performed By: #### V TDOH ####[facility] [place] [address] % NEUTROPHIL 64.8 % Normal 40.0 - 80.0 [facility] Comment on above: Performed By: #### V TDOH ####[facility] [place] [address] Basophils/100 WBC Auto (Bld) 0.04 x10E9/L Normal 0.00 - 0.10 [facility] Comment on above: Performed By: #### V TDOH ####[facility] [place] [address] Basophils/100 WBC Auto (Bld) 0.7 % Normal 0.0 - 2.0 [facility] Comment on above: Performed By: #### V TDOH ####[facility] [place] [address] Eosinophils Auto #/vol (Bld) 0.06 10*3/uL Normal 0.00 - 0.40 [facility] Comment on above: Performed By: #### V TDOH ####[facility] [place] [address] Eosinophils/100 WBC Auto (Bld) 1.0 % Normal 0.0 - 6.0 [facility] Comment on above: Performed By: #### V TDOH ####[facility] [place] [address] Erythrocyte distribution width Auto Ratio (RBC) 16.1 % High 11.5 - 14.5 [facility] Comment on above: Performed By: #### V TDOH ####[facility] [place] [address] Hematocrit Auto Volume Fraction (Bld) 39.0 % Normal 36.0 - 46.0 [facility] Comment on above: Performed By: #### V TDOH ####[facility] [place] [address] Hemoglobin mass conc (Bld) 12.0 g/dL Normal 12.0 - 16.0 [facility] Comment on above: Performed By: #### V TDOH ####[facility] [place] [address] Lymphocytes Auto #/vol (Bld) 1.59 10*3/uL Normal 0.80 - 3.00 [facility] Comment on above: Performed By: #### V TDOH ####[facility] [place] [address] Lymphocytes/100 WBC Auto (Bld) 27.1 % Normal 13.0 - 44.0 [facility] Comment on above: Performed By: #### V TDOH ####[facility] [place] [address] MCHC Auto mass conc (RBC) 30.8 g/dL Low 32.0 - 36.0 [facility] Comment on above: Performed By: #### V TDOH ####[facility] [place] [address] MCV Auto Entitic volume (RBC) 101 fL High 80 - 100 [facility] Comment on above: Performed By: #### V TDOH ####[facility] [place] [address] Monocytes Auto #/vol (Bld) 0.36 10*3/uL Normal 0.05 - 0.80 [facility] Comment on above: Performed By: #### V TDOH ####[facility] [place] [address] Monocytes/100 WBC Auto (Bld) 6.1 % Normal 2.0 - 10.0 [facility] Comment on above: Performed By: #### V TDOH ####[facility] [place] [address] Neutrophils Auto #/vol (Bld) 3.79 10*3/uL Normal 1.60 - 5.50 [facility] Comment on above: Performed By: #### V TDOH ####[facility] [place] [address] Platelets Auto #/vol (Bld) 300 10*3/uL Normal 150 - 450 [facility] Comment on above: Performed By: #### V TDOH ####[facility] [place] [address] RBC Auto #/vol (Bld) 3.88 x10E12/L Low 4.00 - 5.20 [facility] Comment on above: Performed By: #### V TDOH ####[facility] [place] [address] WBC Auto #/vol (Bld) 5.9 10*3/uL Normal 4.4 - 11.3 [facility] Comment on above: Performed By: #### V TDOH ####[facility] [place] [address] COMPREHENSIVE PANELon 2017 Albumin mass conc 3.6 g/dL Normal 3.4 - 5.0 [facility] Comment on above: Performed By: #### V TDOH ####[facility] [place] [address] ALP enzyme act/vol 56 U/L Normal 33 - 136 [facility] Comment on above: Performed By: #### V TDOH ####[facility] [place] [address] ALT enzyme act/vol 13 U/L Normal 7 - 45 [facility] Comment on above: Result Comment: Viv ents treated with Sulfasalazine may generate falsely decreased results for ALT. Performed By: #### V TDOH ####[facility] [place] [address] Anion gap 3 molar conc 15 mmol/L Normal 10 - 20 [facility] Comment on above: Performed By: #### V TDOH ####[facility] [place] [address] AST enzyme act/vol 19 U/L Normal 9 - 39 [facility] Comment on above: Performed By: #### V TDOH ####[facility] [place] [address] Bilirubin mass conc 0.3 mg/dL Normal 0.0 - 1.2 [facility] Comment on above: Performed By: #### V TDOH ####[facility] [place] [address] Calcium mass conc 9.5 mg/dL Normal 8.6 - 10.3 [facility] Comment on above: Performed By: #### V TDOH ####[facility] [place] [address] Chloride molar conc 105 mmol/L Normal 98 - 107 [facility] Comment on above: Performed By: #### V TDOH ####[facility] [place] [address] Creatinine mass conc 1.06 mg/dL High 0.50 - 1.05 [facility] Comment on above: Performed By: #### V TDOH ####[facility] [place] [address] GFR- AM. 61 mL/min/1.73m2 Normal >60 [facility] Comment on above: Result Comment: CALC ULATIONS OF ESTIMATED GFR ARE PERFORMED USING THE MDRD STUDY EQUATION FOR THE IDMS-TRACEABLE CREATININE METHODS. CLIN CHEM 2007;53:766-72 Performed By: #### V TDOH ####[facility] [place] [address] GFR-NON AM. 50 mL/min/1.73m2 Abnormal >60 [facility] Comment on above: Performed By: #### V TDOH ####[facility] [place] [address] Glucose mass conc 109 mg/dL High 74 - 99 [facility] Comment on above: Performed By: #### V TDOH ####[facility] [place] [address] HCO3 molar conc (Bld) 24 mmol/L Normal 21 - 32 [facility] Comment on above: Performed By: #### V TDOH ####[facility] [place] [address] Potassium molar conc 4.5 mmol/L Normal 3.5 - 5.3 [facility] Comment on above: Performed By: #### V TDOH ####[facility] [place] [address] Protein mass conc 7.3 g/dL Normal 6.4 - 8.2 [facility] Comment on above: Performed By: #### V TDOH ####[facility] [place] [address] Sodium molar conc 139 mmol/L Normal 136 - 145 [facility] Comment on above: Performed By: #### V TDOH ####[facility] [place] [address] Urea nitrogen mass conc 19 mg/dL Normal 6 - 23 [facility] Comment on above: Performed By: #### V TDOH ####[facility] [place] [address] BASIC METABOLIC PANELon 09-0 Anion gap 3 molar conc 9 mmol/L Low 10 - 20 [facility] Comment on above: Performed By: #### V TDOH ####[facility] [place] [address] Calcium mass conc 8.4 mg/dL Low 8.6 - 10.3 [facility] Comment on above: Performed By: #### V TDOH ####[facility] [place] [address] Chloride molar conc 110 mmol/L High 98 - 107 [facility] Comment on above: Performed By: #### V TDOH ####[facility] [place] [address] Creatinine mass conc 0.61 mg/dL Normal 0.50 - 1.05 [facility] Comment on above: Performed By: #### V TDOH ####[facility] [place] [address] GFR- AM. >60 Normal >60 [facility] Comment on above: Result Comment: CALC ULATIONS OF ESTIMATED GFR ARE PERFORMED USING THE MDRD STUDY EQUATION FOR THE IDMS-TRACEABLE CREATININE METHODS. CLIN CHEM 2007;53:766-72 Performed By: #### V TDOH ####[facility] [place] [address] GFR-NON AM. >60 Normal >60 [facility] Comment on above: Performed By: #### V TDOH ####[facility] [place] [address] Glucose mass conc 103 mg/dL High 74 - 99 [facility] Comment on above: Performed By: #### V TDOH ####[facility] [place] [address] HCO3 molar conc (Bld) 26 mmol/L Normal 21 - 32 [facility] Comment on above: Performed By: #### V TDOH ####[facility] [place] [address] Potassium molar conc 3.9 mmol/L Normal 3.5 - 5.3 [facility] Comment on above: Performed By: #### V TDOH ####[facility] [place] [address] Sodium molar conc 141 mmol/L Normal 136 - 145 [facility] Comment on above: Performed By: #### V TDOH ####[facility] [place] [address] Urea nitrogen mass conc 10 mg/dL Normal 6 - 23 [facility] Comment on above: Performed By: #### V TDOH ####[facility] [place] [address] CBCon 10-13-2017 Erythrocyte distribution width Auto Ratio (RBC) 16.1 % High 11.5 - 14.5 [facility] Comment on above: Performed By: #### V TDOH ####[facility] [place] [address] Hematocrit Auto Volume Fraction (Bld) 32.7 % Low 36.0 - 46.0 [facility] Comment on above: Performed By: #### V TDOH ####[facility] [place] [address] Hemoglobin mass conc (Bld) 10.3 g/dL Low 12.0 - 16.0 [facility] Comment on above: Performed By: #### V TDOH ####[facility] [place] [address] MCHC Auto mass conc (RBC) 31.5 g/dL Low 32.0 - 36.0 [facility] Comment on above: Performed By: #### V TDOH ####[facility] [place] [address] MCV Auto Entitic volume (RBC) 98 fL Normal 80 - 100 [facility] Comment on above: Performed By: #### V TDOH ####[facility] [place] [address] Platelets Auto #/vol (Bld) 238 10*3/uL Normal 150 - 450 [facility] Comment on above: Performed By: #### V TDOH ####[facility] [place] [address] RBC Auto #/vol (Bld) 3.33 x10E12/L Low 4.00 - 5.20 [facility] Comment on above: Performed By: #### V TDOH ####[facility] [place] [address] WBC Auto #/vol (Bld) 7.3 10*3/uL Normal 4.4 - 11.3 [facility] Comment on above: Performed By: #### V TDOH ####[facility] [place] [address] Daily Progress Note-Surgery ( Medical Student Note , Pepe 10-13-2017 Protein mass conc Service: SurgeryMedi ramiro Student: Medical Student Note CAROLINA Gallagher-S2 Subjective Data:KATHERINE JUDGE is a 82 year old Female who is Hospital Day # 5. Pt is awake and alert but seems slightly confused about her current situation.Denies abd pain, n/v. Per nursing, has not been hallucinating. Overnight Events: Patient had an uneventful night. Objective Data: Objective Information:T [id number] 8%Date/Time10/13 6:5210/13 6:5210/13 6:5210/13 6:5210/13 6:52Range(36.8C - 37.4C ) (63 - 71 ) (16 - 16 ) (155 - 164 )/ (71 - 78 ) (94%- 98% )Highest temp of 37.4 C was recorded at 10/12 20:36 Pain at Rest reported at 10/12 18:24: 4 Physical Exam: Constitutional: Well developed, awake, mildly confused. no distress, alert andcooperativeEyes: PERRL, EOMI, clear scleraENMT: mucous membranes moist, no apparent injury, no lesions seenHead/Neck: Neck supple, no apparent injuryRespiratory/Thorax: Patent airways, CTAB, normal breath soundsCardiovascular: Regular, rate and rhythm, no murmurs, normal S 1and S 2Gastrointestinal: Nondistended, soft, non-tender, no rebound tenderness orguardingMusculoskeletal: ROM intact, no joint swelling, normal strength per baselineExtremities: normal extremities, no cyanosis edema, contusions or wounds, noclubbingNeurological: alert, mildly confusedLymphatic: No significant lymphadenopathyPsychological : Appropriate mood and behaviorSkin: Warm and dry, no lesions, no rashes Medication: Medications: Continuous Medications ----No continuous medications are active Scheduled Medications ---- 1. buPROPion Extended Release (24 hour): 150 mg Oral Every 24 Hours2. Calcium 500 mg - Vitamin D 200 Units: 1 tablet(s) Oral Daily3. Clopidogrel: 75 mg Oral Daily4. Ferrous Sulfate: 325 mg Oral 2 Times a Day5. Fluticasone 50 microgram/ Nasal Inhalation: 1 spray(s) Each NostrilDaily6. Gabapentin: 300 mg Oral 3 Times a Day7. Isosorbide Mononitrate Extended Release: 60 mg Oral Daily8. Lisinopril: 10 mg Oral Daily9. Metoprolol Tartrate: 50 mg Oral Every 12 Hours10. Multivitamin with Minerals: 1 tablet(s) Oral Daily11. Pantoprazole: 40 mg Oral Daily12. Potassium Chloride Extended Release: 20 mEq Oral Daily13. Sertraline: 150 mg Oral Daily14. Sodium Chloride 0.9% Injectable Flush: 10 mL IntraVenous Flush Every 32Pmwwx11. Vancomycin Oral Liquid: 250 mg Oral Every 6 Hours PRN Medications ---- 1. Acetaminophen: 650 mg Oral Every 4 Hours2. diphenhydrAMINE 2% Topical: 1 application(s) Topical 4 Times a Day3. Heparin Flush 10 unit/ mL PF Injectable: 5 mL IntraVenous Flush Every 48Kkhfb1. Heparin Flush 10 unit/ mL PF Injectable PRN: 5 mL IntraVenous FlushAccording to Flush Policy5. Melatonin: 9 mg Oral At Bedtime6. Oxybutynin: 5 mg Oral 3 Times a Day7. Sodium Chloride 0.9% Injectable Flush PRN: 10 mL IntraVenous FlushAccording to Flush Policy8. Witch Giorgi Topical: 1 application(s) Topical 2 Times a Day Currently Suspended Medications ---- 1. Enoxaparin SubCutaneous: 30 mg SubCutaneous Every 24 Hours2. Furosemide: 20 mg Oral Daily3. tiZANidine: 2 mg Oral Every 24 Hours4. traZODone: 50 mg Oral 3 Times a Day Recent Lab Results: Results: I have reviewed these laboratory results: Complete Blood Count 13-Oct-2017 05:30:00 ResultValueWhite Blood Cell Count 7.3Red Blood Cell Count 3.33 LHGB 10.3 LHCT 32.7 LMCV 98MCHC 31.5 LPLT 238RDW-CV 16.1 H Basic Metabolic Panel Trending View [id number] 05:30:00 12-Oct-2017 19:27:00Glucose, Hoxfr862 H 148 TDU875 141K3.9 4.6UG641 H 112 HBicarbonate, Serum26 22Anion Gap, Serum9 L 26AAU02 61GWHPC5.61 0.64GFR-Non >60 >60GFR->60 >60Calcium, Serum8.4 L 8.5 L Magnesium, Serum 13-Oct-2017 05:30:00 ResultValueMagnesium, Serum 1.87 Radiology Results: Results: Impression: There is diffuse colonic mural thickening and mild pericolonic fatstranding, suspicious for colitis. Possible etiologies includeinfectious/inflammato ry or ischemic; ischemia is thought somewhatless likely given the diffuse colonic involvement. There isperipheral intraluminal serpiginous high density throughout the colonwhich could relate to mucosal sloughing/intraluminal hemorrhage. Nodefinite pneumatosis is seen. No bowel obstruction, pneumoperitoneumor intraperitoneal collection. Colonoscopic correlation is suggestedfollowing resolution of patient's acute illness if not recentlyperformed to exclude underlying colorectal carcinoma. Additional findings, as above. 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: Entered Date: 11-Oct-2017 08:29Encephalopathy: Entered Date: 05-Sep-2017 06:39Essential hypertension: Entered Date: 26-Aug-2017 09:59CAD (coronary artery disease): Entered Date: 26-Aug-2017 09:59Cecal volvulus: Entered Date: 16-Jul-2017 07:22S/P right hemicolectomy: Entered Date: 03-Jul-2017 00:33Small bowel obstruction: Entered Date: 02-Jul-2017 20:32 Medical History:Failure to thrive: Entered Date: 28-Jul-2017 20:32Gastrocutaneous fistula: Entered Date: 05-Apr-2012 07:05Constipation: Entered Date: 04-Apr-2012 07:07Ileus: Entered Date: 14-Mar-2012 08:35Exploratory laparotomy: Entered Date: 09-Mar-2012 13:08Small bowel obstruction (disorder): Entered Date: 11-Feb-2012 19:00 Assessment:PLAN: continue vanco PO for resolving c. diff colitis. continue low fiber diet. Signature/Cosignature/Attest ation:Comments/ Additional Findingsprolonged course of by mouth vanco needed Electronic Signatures:Lula Merrill ([facility]) (Signed 13-Oct-2017 10:19)Authored: Service, Subjective Data, Objective Data, Assessment and Plan,Signature/Cosignature/A ttestationManny Arana) (Signed 13-Oct-2017 17:09)Authored: Signature/Cosignature/Attest ationCo-Signer: Service, Subjective Data, Objective Data, Assessment and Plan,Signature/Cosignature/A ttestation Last Updated: 13-Oct-2017 17:09 by Manny Arana) [facility] Discharge Planning Noteon Discharge Planning Note Discharge Needs Assessment:? Discharge Planning Assessment [id number]? Discharge Planning Assessment Completed bySom Chaudhari [facility] Adult Information:? Lives Withspouse? Financial Concernsnone Patient Learning:? Factors that Impact Ability to Learnnone(1) Other Factors:? Functional Screen: In the recent/past 2-4 weeks, patient or family havenoticedno issues that require a rehabilitation consult at this time(2) Discharge Needs:? Services Anticipated at Dischargeplacement? Anticipated Discharge Dispositionrehabilitation facility? Current Discharge Riskcognitively impaired; dependent withmobility/activities of daily living; lack of support system/caregiver? Anticipated Discharge Facility/Level of Care NeedsSkilled Nursing Facility Discharge Planning:Discharge Plannin10/13/17 0845 Lace score 15. This SW rec'd phone call from son- Ganga: he [place]driving from [place] to check on his parents. He states that his parents arehaving a difficult time at home by themselves due to worsening confusion inboth of them. 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 He would like to know how to get them both into assistedliving. Sw notified him that assisted living is a private pay option and hestated they do not have assets to cover the cost of A.L. Pt has a qualifyingstay for Medicare payment of SNF. SW checked her Medicare days and found thatalthough she has had rehab this summer, she still has 33 days available. Heplans on talking to his parents about moving into a facility near him in [facility] that he can visit them more readily. He feels they may qualify for Medicaid.Pt's spouse is home alone. Both see Dr. Roque as PCP and son states hisfather was just in to see Dr. Sam. BLAYNEon is DPOA for both parents and wouldlike some assistance in getting them both placed. HE gave this SW permission tocontact Dr. Garnett to discuss placement needs for both parents. SW contactedDr. Garnett's office and let the RN know about the son's wishes for theirsafety. RN will ask Dr. Garnett to order home health for the in orderto get RN/PT/SW services into the home for a safety check and assist withpossible Medicaid application for immediate placement of tone NF on alevel of care: with the goal to get both into a facility together whereby theycan remain as their dementias progress. Above was relayed to Som Jones.RN/Bowl Sander who is working with this pt today. BRANDON Bonner 10/13/17 0900 Met with Brayan at bedside and Brayan chose [facility] for therapy, Referral sent and patient will be discharged to [facility] today, Discharge orders sent via [employer]. Som Chaudhari [facility] Electronic Signatures:Som Chaudhari ([employer]) (Signed 13-Oct-2017 16:32)Authored: Discharge Planning Elaina Dacosta (TELEVISION INSPECTOR) (Signed 13-Oct-2017 12:46)Authored: Discharge Planning Note Last Updated: 13-Oct-2017 16:32 by Som Chaudhari ([employer]) References:1. Data Referenced From 5. Education 10/09/2017 09:02 PM2. Data Referenced From Admission Risk Screen - Adult 10/09/2017 09:02 PM Normal [facility] Discharge [id number] Protein mass conc Discharge Orders:Ant icipated Discharge Date:? Anticipated Discharge [id number] Problem List: Admitting Dx:? Clostridium difficile colitis: Catalog Name: Enterocolitis due toClostridium difficile, not specified as recurrent Additional Dx:? 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 Hypokalemia: Catalog Name: Hypokalemia Significant Events:CABG (2 vessel): Past Surgical History, [id number] Catheterization: Past Surgical Historycataract: Past Surgical History, bilateral with lens implantappendectomy: Past Surgical History, 27 years agocomplete hysterectomy: Past Surgical History, 27 years agobilat knee replacement: Past Surgical HistoryDNRCCA 10/09/2017: Past Medical HistoryCongestive Heart Failure (CHF): Past Medical HistoryChronic anemia: Past Medical HistoryVenous thromboembolism: Past Medical HistorySepsis: Past Medical HistoryCoronary atherosclerosis: Past Medical HistoryNon ST elevation NE: Past Medical History, [id number]: Past Medical HistoryGERD: Past Medical HistoryUTI: Past Medical Historyumbilical hernia: Past Medical Historydiverticulitis: Past Medical Historyosteoporosis: Past Medical Historyanxiety: Past Medical Historydepression: Past Medical Historypost shingles neuropathy: Past Medical Historyhypercholesterolemia: Past Medical Historyherniated disc lumbar area: Past Medical Historyarthritis: Past Medical HistoryHypertension (HTN): Past Medical Historygi bleed: Past Medical Historymitral valve regurgitation: Past Medical Historycolitis: Past Medical HistoryFamily spokesperson: Other, CARLOS [phone] BROTHERNANCY VELOZ [phone] Use: OtherClostridium difficile toxin (C-Diff): Infection Control, 39-Acv-4919Wjotfwcxxff difficile toxin (C-Diff): Infection Control, 50-Xry-7000Zzlhocbkwfz difficile toxin (C-Diff): Infection Control, 27-Aug-2012, camewith ( [facility])Methicillin-Resistant Staph Aureus (MRSA): Infection Control, Mar 2012, sputum.Influenza- Influenza Virus: Immunizations, 89-Rbl-9477GHB- Pneumococcal conjugate vaccine: Immunizations, 12-Oct-2017.Pneumonia- Pneumococcal polysaccharide vaccine-adult: Immunizations.Influenza- Influenza Virus: Immunizations, 34-Kea-9996Iwmgdbb Information: Contacts, dontae Schuler [phone] Hospital Providers:Provider RoleProvider Name? Clif Morataya? Manny Mcbride? Benjy Pruitt? Aria Schmitt DNAR:? DNAR StatusDNAR Activity:activity as tolerated. Diet:? Dietlow fiber? Diet Consistency/Texturesoft Additive/Supplement 1:Supplement. Boost Plus 1 by mouth 2 times a day. Hospital Course (Home Care/Gold Form):Hospital Course:? Hospital Course: include significant abnormal lab sugoow54 year old female from home with who stated that she has had abdominalpain, diarrhea, not eating, generalized weakness for the past one week or sobut worse since Thursday. Denied f/c. Has some urinary discomfort. PMHxsignificant for failure to thrive, gastrocutaneous fistula, constipation,ileus, small bowel obstruction, transient ischemic colitis, anemia, proteincalorie malnutrition, hypokalemia, hypomagnesemia and [facility]. Patient has had multiple abdominalsurgeries in the past. She was recently discharged from the hospital on09/01/17 and then a week later for management of small bowel obstruction andAMS. Treatment course in the ED included starting IV fluids, Cipro, Flagyl and oralVanco.stool for c diff +.Sodium 135, K 4.1, Bun/Creat 27/1.73Access started by PICC PRODUCTION CONTROL SPECIALIST in ED Hospital course: Patient was admitted to [facility] for Acute colitis with C. Diff,hypokalemia, and hypomagnesia. She was initially started on IV cipro, IVflagyl, and PO vanco. ID was consulted and recommended to discontinue the ciproand flagyl. She was continued on PO Vanco 250 mg q6h for 14 days then start totaper dose. She was given IVF for dehydration due to poor oral intake. She wasgiven potassium and magnesium supplements to correct her electrolyte imbalance.We continued her home medication for HTn, CAD, Anemia, anxiety, Depression,Insomnia, neuropathy, GERD, and urinary frequency. PT/OT evaluation wascompleted and recommended SNF. She was stable to be discharge to SNF. Infectious Disease:? C. Diffyes? Isolation TypeContact Provider FINAL REVIEW of Orders:Final Review:? Final Review of Medication Reconciliation and Orders Completedby Physician? Reviewing ProviderAria Gandhi MD at 13-Oct-2017 14:43:14 Gold Form - Nursing Summary:Special Treatments/Procedures (in past 14 days):? Chemotherapyno? Dialysisno? IV Medicationyes? Last Date [id number]? Oxygen Therapyno? Transfusionsno? Feverno? Radiationno? Ventilatorno? Tracheostomyno? Suctioningno Nutrition:? Nutritional Statusfeeds self Sensory/Comfort:? Visionadequate? Hearingadequate? Speechaphasia? Painyes? Pain Typechronic arthritic? Pain Locationknees, back? Whenvaries? Pain Relieved Byacetaminophen Elimination:? Bladdercontinent? Bowelcontinent? Last Bowel [id number]? Toiletingtoilet Safety:? Siderailsyes? Siderails Number/Reason2 for saftey? Restraintsno? Sitterno? Fall Riskprevious falls, weakness Medication/Hygiene/Mobility: ? Medication Administrationtotal dependent? Bathingassist? Dressingassist? Bed Mobilityassist? Wheelchairassist? Transfersassist? Ambulationassist Gold Form - [employer] Floorperson Summary:Referral Information:? Referral [facility]? Referring Facility [facility]? Contact Sebastian Chaudhari [facility]? Contact Phone [phone] Mental & Functional Status:? Capacity For Independent Living/Senior Assistant Manager Planreturn home? Mental/Functional Commentalert and oriented Electronic Signatures:Aria Gandhi) (Signed 13-Oct-2017 14:43)Authored: Provider FINAL REVIEW of OrdersSom Chaudhari ([employer]) (Signed 13-Oct-2017 10:27)Authored: Gold Form - [employer] Floorperson SummaryVanessa Cortes (RN PRN) (Signed 13-Oct-2017 16:25)Authored: Mikal Form - Nursing SummaryRamon Alex (DANCE ARTIST-COMMUNITY LIVING SPECIALIST) (Signed 13-Oct-2017 14:39)Authored: Discharge Orders, Hospital Course (Home Care/Gold Form), ProviderFINAL REVIEW of Orders Last Updated: 13-Oct-2017 16:25 by Vanessa Cortes (RN PRN) Normal [facility] MAGNESIUMon 10-13-2017 Magnesium mass conc 1.87 mg/dL Normal 1.60 - 2.40 [facility] Comment on above: Performed By: #### V TDOH ####[facility] [place] [address] BASIC METABOLIC PANELon Anion gap 3 molar conc 11 mmol/L Normal 10 - 20 [facility] Comment on above: Performed By: #### V TDOH ####[facility] [place] [address] Calcium mass conc 8.5 mg/dL Low 8.6 - 10.3 [facility] Comment on above: Performed By: #### V TDOH ####[facility] [place] [address] Chloride molar conc 112 mmol/L High 98 - 107 [facility] Comment on above: Performed By: #### V TDOH ####[facility] [place] [address] Creatinine mass conc 0.64 mg/dL Normal 0.50 - 1.05 [facility] Comment on above: Performed By: #### V TDOH ####[facility] [place] [address] GFR- AM. >60 Normal >60 [facility] Comment on above: Result Comment: CALC ULATIONS OF ESTIMATED GFR ARE PERFORMED USING THE MDRD STUDY EQUATION FOR THE IDMS-TRACEABLE CREATININE METHODS. CLIN CHEM 2007;53:766-72 Performed By: #### V TDOH ####[facility] [place] [address] GFR-NON AM. >60 Normal >60 [facility] Comment on above: Performed By: #### V TDOH ####[facility] [place] [address] Glucose mass conc 148 mg/dL High 74 - 99 [facility] Comment on above: Performed By: #### V TDOH ####[facility] [place] [address] HCO3 molar conc (Bld) 22 mmol/L Normal 21 - 32 [facility] Comment on above: Performed By: #### V TDOH ####[facility] [place] [address] Potassium molar conc 4.4 mmol/L Normal 3.5 - 5.3 [facility] Comment on above: Performed By: #### V TDOH ####[facility] [place] [address] Sodium molar conc 141 mmol/L Normal 136 - 145 [facility] Comment on above: Performed By: #### V TDOH ####[facility] [place] [address] Urea nitrogen mass conc 11 mg/dL Normal 6 - 23 [facility] Comment on above: Performed By: #### V TDOH ####[facility] [place] [address] Daily Progress Note-Medicine on 10-12-2017 Protein mass conc Service: Medicine Rick bjective Data:KATHERINE JUDGE is a 82 year old Female who is Hospital Day # 4. c diff colitis. Overnight Events: Acute events in the past 24 hours includeAdditional Information:- denied abd pain, feels she is doing better- stated I fell out of bed this morning and broke my hip. I think I have ascrew loose somewhere.- patient received ambien overnight, problems with insomnia Objective Data: Objective Information:T [id number]/719 5%Date/Time10/12 14: 14: 14: 14: 14:20Range(36.9C - 37.8C ) (65 - 80 ) (16 - 20 ) (155 - 178 )/ (71 - 84 ) (94%- 95% )Highest temp of 37.8 C was recorded at 10/11 20:14 Pain with Activity reported at 10/11 20:00: 0Pain at Rest reported at 10/11 20:00: 0 Physical Exam: Constitutional: Well developed, awake/alert/oriented x2 no distress, alert andcooperativeEyes: PERRL, EOMI, clear scleraENMT: mucous membranes moist, no apparent injury, no lesions seenHead/Neck: Neck supple, no apparent injury, thyroid without mass or tenderness,No JVD, trachea midline, no bruitsRespiratory/Thorax: Patent airways, CTAB, normal breath sounds with good chestexpansion, thorax symmetricCardiovascular: Regular, rate and rhythm, no murmurs, 2+ equal pulses of theextremities, normal S 1and S 2Gastrointestinal: Nondistended, soft, non-tender, no rebound tenderness orguarding, no masses palpable, no organomegaly, +BS, no bruitsMusculoskeletal: ROM intact, no joint swelling, normal strengthExtremities: normal extremities, no cyanosis edema, contusions or wounds, noclubbingNeurological: alert and oriented x2, intact senses, motor, response andreflexes, normal strengthLymphatic: No significant lymphadenopathyPsychological : Appropriate mood and behaviorSkin: Warm and dry, no lesions, no rashes Medication: Medications: Continuous Medications ----No continuous medications are active Scheduled Medications ---- 1. buPROPion Extended Release (24 hour): 150 mg Oral Every 24 Hours2. Calcium 500 mg - Vitamin D 200 Units: 1 tablet(s) Oral Daily3. Clopidogrel: 75 mg Oral Daily4. Docusate: 100 mg Oral Daily5. Ferrous Sulfate: 325 mg Oral 2 Times a Day6. Fluticasone 50 microgram/ Nasal Inhalation: 1 spray(s) Each NostrilDaily7. Gabapentin: 300 mg Oral 3 Times a Day8. Isosorbide Mononitrate Extended Release: 60 mg Oral Daily9. Lisinopril: 10 mg Oral Daily10. Metoprolol Tartrate: 50 mg Oral Every 12 Hours11. Multivitamin with Minerals: 1 tablet(s) Oral Daily12. Pantoprazole: 40 mg Oral Daily13. Potassium Chloride Extended Release: 20 mEq Oral Daily14. Sertraline: 150 mg Oral Daily15. Sodium Chloride 0.9% Injectable Flush: 10 mL IntraVenous Flush Every 93Npoxz65. Vancomycin Oral Liquid: 250 mg Oral Every 6 Hours PRN Medications ---- 1. Acetaminophen: 650 mg Oral Every 4 Hours2. diphenhydrAMINE 2% Topical: 1 application(s) Topical 4 Times a Day3. Heparin Flush 10 unit/ mL PF Injectable: 5 mL IntraVenous Flush Every 91Tnqau9. Heparin Flush 10 unit/ mL PF Injectable PRN: 5 mL IntraVenous FlushAccording to Flush Policy5. Melatonin: 9 mg Oral At Bedtime6. Oxybutynin: 5 mg Oral 3 Times a Day7. Sodium Chloride 0.9% Injectable Flush PRN: 10 mL IntraVenous FlushAccording to Flush Policy8. Witch Giorgi Topical: 1 application(s) Topical 2 Times a Day Currently Suspended Medications ---- 1. Enoxaparin SubCutaneous: 30 mg SubCutaneous Every 24 Hours2. Furosemide: 20 mg Oral Daily3. tiZANidine: 2 mg Oral Every 24 Hours4. traZODone: 50 mg Oral 3 Times a Day Recent Lab Results: Results: I have reviewed these laboratory results: Complete Blood Count 11-Oct-2017 05:28:00 ResultValueWhite Blood Cell Count 5.5Red Blood Cell Count 3.23 LHGB 9.9 LHCT 31.4 LMCV 97HC 31.5 LPLT 253RDW-CV 16.0 H Basic Metabolic Panel 11-Oct-2017 05:28:00 ResultValueGlucose, Serum 106 HNA 139K 3.3 LCL 108 HBicarbonate, Serum 26Anion Gap, Serum 8 LBUN 7CREAT 0.71GFR-Non >60GFR- >60Calcium, Serum 8.1 L Magnesium, Serum 11-Oct-2017 05:28:00 ResultValueMagnesium, Serum 1.54 L Assessment and Plan:Assessment:Acute colitis, c diff, hx of multiple bowel surgeries and SBO; ID wasconsulted; recommended discontinuing IV cipro and Flagyl.- still having diarrhea but denies more than 2 episodes in the last 12 hours- continue PO vancomycin 250 mg q6h; will taper dose after 14 days- IV fluids d/c 10/11- poor oral intake, but 10/12 pt stated that she was eating breakfast andtolerating same- surgery and ID following Hypokalemia/Hypomag- continue PO KCL daily- replete as necessary- monitor BMP and Mg HTN controlled- continue Metoprolol- continue Imdur- continue Lisinopril CAD- continue Plavix Seasonal allergies- continue Flonase Other: continue vit D, calcium Anemia 2/2 iron deficiency- continue daily iron, colacePoor IV access- likely due to dehydration, PICC line inserted in ED by PICC COMMUNITY LIVING SPECIALIST Anxiety, depression- continue Wellbutrin- continue Sertraline Insomnia- hold trazadone- held ambien - pt confused overnight GERD- continue pantoprazole Neuropathy pain- hold Tizandine- continue Neurotin for now Urinary frequency- continue oxybutynin Impaired Functional Mobility- PT/OT evaluation, likely snf DVT pps- Ambulation, Lovenox held due to anemia Disposition: [facility] med/surg. Snf soon. Electronic Signatures:Alex Mayer (DANCE ARTIST-COMMUNITY LIVING SPECIALIST) (Signed 12-Oct-2017 16:31)Authored: Service, Subjective Data, Objective Data, Assessment and Plan,Signature/Cosignature/A ttestation Last Updated: 12-Oct-2017 16:31 by Alex Mayer (DANCE ARTIST-COMMUNITY LIVING SPECIALIST) Normal [facility] HIP, UNILATERAL W/PELVIS WHE N PERFORMED 2-3 VIEWSon 10-12-2017 HIP, UNILATERAL W/PELVIS WHEN PERFORMED 2-3 VIEWS Name: KATHERINE JUDGE STUDY:Left HIP, UNILATERAL W/PELVIS WHEN PERFORMED 2-3 VIEWS; 10/12/201710:28 am INDICATION:Signs/Symptoms: hip pain. COMPARISON:06/14/2012 ORDERING CLINICIAN:ARIA GANDHI FINDINGS:Osteopenia is present.There is no evidence for acute fracture or dislocation. Narrowing of the hip joint is seen with associated sclerosis and spurformation. No periosteal reaction is seen. No lytic or blastic lesions are identified. Surgical george are seen. IMPRESSION:Degenerative changes of the hip. Electronically signed by: HOMER BELLAMY MD Normal [facility] BASIC METABOLIC PANELon 09-0 Anion gap 3 molar conc 8 mmol/L Low 10 - 20 [facility] Comment on above: Performed By: #### L IPID ####[id number] [place] [address] Calcium mass conc 8.1 mg/dL Low 8.6 - 10.3 [facility] Comment on above: Performed By: #### L IPID ####[id number] [place] [address] Chloride molar conc 108 mmol/L High 98 - 107 [facility] Comment on above: Performed By: #### L IPID ####[id number] [place] [address] Creatinine mass conc 0.71 mg/dL Normal 0.50 - 1.05 [facility] Comment on above: Performed By: #### L IPID ####[id number] [place] [address] GFR- AM. >60 Normal >60 [facility] Comment on above: Result Comment: CALC ULATIONS OF ESTIMATED GFR ARE PERFORMED USING THE MDRD STUDY EQUATION FOR THE IDMS-TRACEABLE CREATININE METHODS. CLIN CHEM 2007;53:766-72 Performed By: #### L IPID ####[id number] [place] [address] GFR-NON AM. >60 Normal >60 [facility] Comment on above: Performed By: #### L IPID ####[id number] [place] [address] Glucose mass conc 106 mg/dL High 74 - 99 [facility] Comment on above: Performed By: #### L IPID ####[facility] [place] [address] HCO3 molar conc (Bld) 26 mmol/L Normal 21 - 32 [facility] Comment on above: Performed By: #### L IPID ####[id number] [place] [address] Potassium molar conc 3.3 mmol/L Low 3.5 - 5.3 [facility] Comment on above: Performed By: #### L IPID ####[id number] [place] [address] Sodium molar conc 139 mmol/L Normal 136 - 145 [facility] Comment on above: Performed By: #### L IPID ####[address] [address] Urea nitrogen mass conc 7 mg/dL Normal 6 - 23 [facility] Comment on above: Performed By: #### L IPID ####[id number] [place] [address] CBCon 10-11-2017 Erythrocyte distribution width Auto Ratio (RBC) 16.0 % High 11.5 - 14.5 [facility] Comment on above: Performed By: #### L IPID ####[id number] [place] [address] Hematocrit Auto Volume Fraction (Bld) 31.4 % Low 36.0 - 46.0 [facility] Comment on above: Performed By: #### L IPID ####[id number] [place] [address] Hemoglobin mass conc (Bld) 9.9 g/dL Low 12.0 - 16.0 [facility] Comment on above: Performed By: #### L IPID ####[id number] [place] [address] MCHC Auto mass conc (RBC) 31.5 g/dL Low 32.0 - 36.0 [facility] Comment on above: Performed By: #### L IPID ####[id number] [place] [address] MCV Auto Entitic volume (RBC) 97 fL Normal 80 - 100 [facility] Comment on above: Performed By: #### L IPID ####[facility] [place] [address] Platelets Auto #/vol (Bld) 253 10*3/uL Normal 150 - 450 [facility] Comment on above: Performed By: #### L IPID ####[facility] [place] [address] RBC Auto #/vol (Bld) 3.23 x10E12/L Low 4.00 - 5.20 [facility] Comment on above: Performed By: #### L IPID ####[facility] [place] [address] WBC Auto #/vol (Bld) 5.5 10*3/uL Normal 4.4 - 11.3 [facility] Comment on above: Performed By: #### L IPID ####[facility] [place] [address] Daily Progress Note-Medicine on 10-11-2017 Protein mass conc Service: Medicine Rick bjective Data:KATHERINE JUGDE is a 82 year old Female who is Hospital Day # 3. Patientassessed at bedside; sitting up in a chair. slightly confused today; complainedof not sleeping. She is aware she is seeing things that are not there. Objective Data: Objective Information:T [id number]/949 9%Date/Time10/11 6:289/2 6:2892 6:289/2 6:289/2 6:28Range(36.4C - 36.6C ) (64 - 67 ) (16 - 22 ) (138 - 178 )/ (71 - 94 ) (98%- 99% ) As of 11-Oct-2017 06:28:00, patient is on 2 L/min of oxygen via nasal cannula. Pain at Rest reported at 10/10 23:30: 0 Physical Exam: Constitutional: Well developed, awake/alert/oriented x3, no distress, alert andcooperativeEyes: PERRL, no drainage, clear scleraENMT: mucous membranes moist, no apparent injury, no lesions seenHead/Neck: Neck supple, no apparent injury, trachea midlineRespiratory/Thorax: Patent airways, CTAB, normal breath sounds with good chestexpansion, thorax symmetricCardiovascular: Regular, rate and rhythm, no murmurs, 2+ equal pulses of theextremities, normal S 1and S 2Gastrointestinal: Nondistended, soft, non-tender, +BSMusculoskeletal: ROM intact, no joint swelling, normal strengthExtremities: normal extremities, no cyanosis edema, contusions or wounds, noclubbingNeurological: alert and oriented x3, intact senses, motor, response andreflexes, normal strengthLymphatic: No significant lymphadenopathyPsychological : Appropriate mood and behaviorSkin: Warm and dry, no lesions, no rashes Medication: Medications: Continuous Medications ---- 1. Dextrose 5% - NaCL 0.9% Infusion: 1000 mL IntraVenous Scheduled Medications ---- 1. buPROPion Extended Release (24 hour): 150 mg Oral Every 24 Hours2. Calcium 500 mg - Vitamin D 200 Units: 1 tablet(s) Oral Daily3. Clopidogrel: 75 mg Oral Daily4. Docusate: 100 mg Oral Daily5. Ferrous Sulfate: 325 mg Oral 2 Times a Day6. Fluticasone 50 microgram/ Nasal Inhalation: 1 spray(s) Each NostrilDaily7. Gabapentin: 300 mg Oral 3 Times a Day8. Influenza Virus (Inactive) HIGH DOSE Adult Vaccine: 0.5 mL IntraMuscularOnce9. Ioversol (Optiray 350-Radiology Contrast): 64.5 mL IntraVenous Push Once 10. Isosorbide Mononitrate Extended Release: 60 mg Oral Daily11. Lisinopril: 10 mg Oral Daily12. Metoprolol Tartrate: 50 mg Oral Every 12 Hours13. Multivitamin with Minerals: 1 tablet(s) Oral Daily14. Pantoprazole: 40 mg Oral Daily15. Pneumococcal 13-Valent (PREVNAR 13) Vaccine: 0.5 mL IntraMuscular Once 16. Potassium Chloride Extended Release: 20 mEq Oral Daily17. Sertraline: 150 mg Oral Daily18. Sodium Chloride 0.9% Injectable Flush: 10 mL IntraVenous Flush Every 56Jxhqa29. Vancomycin Oral Liquid: 250 mg Oral Every 6 Hours PRN Medications ---- 1. Acetaminophen: 650 mg Oral Every 4 Hours2. diphenhydrAMINE 2% Topical: 1 application(s) Topical 4 Times a Day3. Heparin Flush 10 unit/ mL PF Injectable: 5 mL IntraVenous Flush Every 79Sletw7. Heparin Flush 10 unit/ mL PF Injectable PRN: 5 mL IntraVenous FlushAccording to Flush Policy5. Oxybutynin: 5 mg Oral 3 Times a Day6. Sodium Chloride 0.9% Injectable Flush PRN: 10 mL IntraVenous FlushAccording to Flush Policy7. Witch Giorgi Topical: 1 application(s) Topical 2 Times a Day8. Zolpidem: 5 mg Oral At Bedtime Currently Suspended Medications ---- 1. Enoxaparin SubCutaneous: 30 mg SubCutaneous Every 24 Hours2. Furosemide: 20 mg Oral Daily3. tiZANidine: 2 mg Oral Every 24 Hours4. traZODone: 50 mg Oral 3 Times a Day Recent Lab Results: Results: I have reviewed these laboratory results: Complete Blood Count 11-Oct-2017 05:28:00 ResultValueWhite Blood Cell Count 5.5Red Blood Cell Count 3.23 LHGB 9.9 LHCT 31.4 LMCV [facility] 31.5 LPLT 253RDW-CV 16.0 H Basic Metabolic Panel 11-Oct-2017 05:28:00 ResultValueGlucose, Serum 106 HNA 139K 3.3 LCL 108 HBicarbonate, Serum 26Anion Gap, Serum 8 LBUN 7CREAT 0.71GFR-Non >60GFR- >60Calcium, Serum 8.1 L Magnesium, Serum 11-Oct-2017 05:28:00 ResultValueMagnesium, Serum 1.54 L Assessment and Plan:Assessment:Acute colitis, c diff, hx of multiple bowel surgeries and SBO; ID wasconsulted; recommended discontinuing IV cipro and Flagyl.- continue PO vancomycin 250 mg q6h; will taper dose after 14 days- continue IV fluids- poor oral intake- surgery and ID following Hypokalemia/Hypomagnesia- replete with KCL IV ryders- continue PO KCL daily- replete with magnesium sulfate 2 grams IV- monitor BMP and Mg HTN controlled- continue Metoprolol- continue Imdur- continue Lisinopril CAD- continue Plavix Seasonal allergies- continue Flonase Other: continue vit D, calcium Anemia 2/2 iron deficiency- continue daily iron, colacePoor IV acces- likely due to dehydration, PICC line inserted in ED by PICC COMMUNITY LIVING SPECIALIST Anxiety, depression- continue Wellbutrin- continue Sertraline Insomnia- hold trazadone- started ambien GERD- continue pantoprazole Neuropathy pain- hold Tizandine- continue Neurotin for now Urinary frequency- continue oxybutynin Impaired Funcitonal Mobility- PT/OT evaluation pending DVT pps- Ambulation, Lovenox held due to anemia Disposition: [facility] med/surg. Home soon. Electronic Signatures:Alex Tillman (DANCE ARTIST-COMMUNITY LIVING SPECIALIST) (Signed 11-Oct-2017 18:54)Authored: Service, Subjective Data, Objective Data, Assessment and Plan,Signature/Cosignature/A ttestation Last Updated: 11-Oct-2017 18:54 by Alex Tillman (DANCE ARTIST-COMMUNITY LIVING SPECIALIST) Normal [facility] Daily Progress Note-Samarao n 10-11-2017 Protein mass conc Service: Surgery Sub jective Data:KATHERINE JUDGE is a 82 year old Female who is Hospital Day # 3. HALLUCINATING / NO PAIN / LESS DIARRHEA. Objective Data: Objective Information:T [id number]/949 9%Date/Time10/11 6:289/2 6:289/2 6:289/2 6:289/2 6:28Range(36.4C - 36.6C ) (64 - 67 ) (16 - 22 ) (138 - 178 )/ (71 - 94 ) (98%- 99% ) As of 11-Oct-2017 06:28:00, patient is on 2 L/min of oxygen via nasal cannula. 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: Entered Date: 11-Oct-2017 08:29 Assessment:PLAN - CONTINUE VANCOMYCIN / FOLLOW CLINICAL EXAM / HALLUCINATIONS SHOULDRESOLVE Electronic Signatures:Manny Arana) (Signed 11-Oct-2017 08:30)Authored: Service, Subjective Data, Objective Data, Assessment and Plan,Signature/Cosignature/A ttestation Last Updated: 11-Oct-2017 08:30 by Manny Arana) Normal [facility] MAGNESIUMon 10-11-2017 Magnesium mass conc 1.54 mg/dL Low 1.60 - 2.40 [facility] Comment on above: Performed By: #### V TDOH ####[facility] [place] [address] BASIC METABOLIC PANELon Anion gap 3 molar conc 10 mmol/L Normal 10 - 20 [facility] Comment on above: Performed By: #### L IPID ####[facility] [place] [address] Calcium mass conc 8.2 mg/dL Low 8.6 - 10.3 [facility] Comment on above: Performed By: #### L IPID ####[facility] [place] [address] Chloride molar conc 104 mmol/L Normal 98 - 107 [facility] Comment on above: Performed By: #### L IPID ####[facility] [place] [address] Creatinine mass conc 1.14 mg/dL High 0.50 - 1.05 [facility] Comment on above: Performed By: #### L IPID ####[facility] [place] [address] GFR- AM. 56 mL/min/1.73m2 Abnormal >60 [facility] Comment on above: Result Comment: CALC ULATIONS OF ESTIMATED GFR ARE PERFORMED USING THE MDRD STUDY EQUATION FOR THE IDMS-TRACEABLE CREATININE METHODS. CLIN CHEM 2007;53:766-72 Performed By: #### L IPID ####[address] [address] GFR-NON AM. 46 mL/min/1.73m2 Abnormal >60 [facility] Comment on above: Performed By: #### L IPID ####[address] [address] Glucose mass conc 102 mg/dL High 74 - 99 [facility] Comment on above: Performed By: #### L IPID ####[address] [address] HCO3 molar conc (Bld) 27 mmol/L Normal 21 - 32 [facility] Comment on above: Performed By: #### L IPID ####[address] [address] Potassium molar conc 3.5 mmol/L Normal 3.5 - 5.3 [facility] Comment on above: Performed By: #### L IPID ####[address] [address] Sodium molar conc 137 mmol/L Normal 136 - 145 [facility] Comment on above: Performed By: #### L IPID ####[address] [address] Urea nitrogen mass conc 18 mg/dL Normal 6 - 23 [facility] Comment on above: Performed By: #### L IPID ####[address] [address] CBC AND DIFFERENTIALon 10-10 % AUTOMATED IMMATURE GRAN 0.3 % Normal 0.0 - 0.9 [facility] Comment on above: Result Comment: Perc ent differential counts (%) should be interpreted in the context of the absolute cell counts (cells/L). Performed By: #### L IPID ####[address] [address] % NEUTROPHIL 69.7 % Normal 40.0 - 80.0 [facility] Comment on above: Performed By: #### L IPID ####[address] [address] Basophils/100 WBC Auto (Bld) 0.04 x10E9/L Normal 0.00 - 0.10 [facility] Comment on above: Performed By: #### L IPID ####[address] [address] Basophils/100 WBC Auto (Bld) 0.5 % Normal 0.0 - 2.0 [facility] Comment on above: Performed By: #### L IPID ####[address] [address] Eosinophils Auto #/vol (Bld) 0.15 10*3/uL Normal 0.00 - 0.40 [facility] Comment on above: Performed By: #### L IPID ####[address] [address] Eosinophils/100 WBC Auto (Bld) 2.0 % Normal 0.0 - 6.0 [facility] Comment on above: Performed By: #### L IPID ####[address] [address] Erythrocyte distribution width Auto Ratio (RBC) 15.9 % High 11.5 - 14.5 [facility] Comment on above: Performed By: #### L IPID ####[address] [address] Hematocrit Auto Volume Fraction (Bld) 29.3 % Low 36.0 - 46.0 [facility] Comment on above: Performed By: #### L IPID ####[address] [address] Hemoglobin mass conc (Bld) 9.4 g/dL Low 12.0 - 16.0 [facility] Comment on above: Performed By: #### L IPID ####[address] [address] Lymphocytes Auto #/vol (Bld) 1.63 10*3/uL Normal 0.80 - 3.00 [facility] Comment on above: Performed By: #### L IPID ####[address] [address] Lymphocytes/100 WBC Auto (Bld) 22.0 % Normal 13.0 - 44.0 [facility] Comment on above: Performed By: #### L IPID ####[address] [address] MCHC Auto mass conc (RBC) 32.1 g/dL Normal 32.0 - 36.0 [facility] Comment on above: Performed By: #### L IPID ####[address] [address] MCV Auto Entitic volume (RBC) 97 fL Normal 80 - 100 [facility] Comment on above: Performed By: #### L IPID ####[address] [address] Monocytes Auto #/vol (Bld) 0.41 10*3/uL Normal 0.05 - 0.80 [facility] Comment on above: Performed By: #### L IPID ####[address] [address] Monocytes/100 WBC Auto (Bld) 5.5 % Normal 2.0 - 10.0 [facility] Comment on above: Performed By: #### L IPID ####[address] [address] Neutrophils Auto #/vol (Bld) 5.16 10*3/uL Normal 1.60 - 5.50 [facility] Comment on above: Performed By: #### L IPID ####[address] [address] Platelets Auto #/vol (Bld) 246 10*3/uL Normal 150 - 450 [facility] Comment on above: Performed By: #### L IPID ####[address] [address] RBC Auto #/vol (Bld) 3.02 x10E12/L Low 4.00 - 5.20 [facility] Comment on above: Performed By: #### L IPID ####[address] [address] WBC Auto #/vol (Bld) 7.4 10*3/uL Normal 4.4 - 11.3 [facility] Comment on above: Performed By: #### L IPID ####[facility] [place] [address] CLOST.DIFF.TOXIN,PCRon 10-10 CLOST.DIFF.TOXIN,PCR DETECTED Abnormal Not Detected [facility] Comment on above: Order Comment: +CDPC R Called- RB to OSMAR SANTILLAN, 10/10/2017 03:35 Result Comment: This assay detects the presence of the tcdB (toxin B) gene via DNA amplification, and results should be interpreted in the context of the patients history and clinical findings. This test cannot be performed on formed stools or used as a test of cure, and should not be performed more than once per 7 days.+CDPCR Called- RB to OSMAR SANTILLNA, 10/10/2017 03:35 Performed By: #### L IPID ####[address] [place] [address] Consult-Infectious Diseaseon 10-10-2017 Consult-Infectious Disease Service:Service: Infectious Disease Consult:Consult requested by (Attending Name): Wade: C diff infection History of Present Illness:HPI:82-year-old female patient with past medical history of volvulus, s/p righthemicolectomy with complicated post op course, admitted for abdominal pain.Onset was about a week ago-gradual onset, intermittent with no knownexacerbating or relieving factors. Abdominal pain was mild to moderate,intermittent.She had associated diarrhea-gradual onset, intermittent. She was diagnosed withC diff and placed on oral Vancomycin-some improvement.She denies any N/V.She denies any fever or chills. 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 Constitutional: NEGATIVE: Fever, Chills Eyes: NEGATIVE: Drainage, Diploplia, Redness ENMT: NEGATIVE: Nasal Congestion, Ear Pain, Mouth Pain Respiratory: NEGATIVE: Dry Cough, Productive Cough, Hemoptysis Cardiac: NEGATIVE: Chest Pain, Dyspnea on Exertion, Orthopnea, Palpitations Gastrointestinal: POSITIVE: Diarrhea, Abdominal Pain; NEGATIVE: Nausea,Vomiting, Constipation Genitourinary: NEGATIVE: Discharge, Dysuria, Flank Pain, Frequency Musculoskeletal: NEGATIVE: Pain, Swelling, Stiffness Neurological: NEGATIVE: Dizziness, Headache, Seizures Psychiatric: NEGATIVE: Anxiety, Hallucinations, Sleep Changes Skin: NEGATIVE: Pain, Pruritus, Rash Allergies:? Lincocin: Rash? penicillin: Rash? tetracycline: Rash? erythromycin: Rash? Keflex: Syncope? Lunesta: Unknown? penicillin G benzathine: Unknown? Biaxin: Unknown? trazodone: Unknown? Clindamycin Hydrochloride: Unknown? aspirin: GI Bleeding? Vioxx: Bleeding? NSAIDs: GI Bleeding? Mold/Fungi: Unknown? Pollen: Unknown Intolerances:? Ativan: Confusion? Restoril: Confusion Objective: Objective Information: T [id number]/749 9%Date/Time10/10 14: 14:259 14:259 14:259 14:25Range(36.4C - 36.7C ) (63 - 77 ) (16 - 18 ) (122 - 170 )/ (60 - 80 ) (91%- 99% ) Physical Exam: Constitutional: Well developed, awake/alert/oriented x3, no distress, alert andcooperativeEyes: anicteric, EOMIENMT: mucous membranes moist, no apparent injury, no lesions seenHead/Neck: supple, no obvious massesRespiratory/Thorax: Decreased breath sounds, no rales or rhonchiCardiovascular: RRR, no rubs, gallopsGastrointestinal: soft, non-tender, BS+Musculoskeletal: no joint swelling or tendernessExtremities: no edema, cyanosis or clubbingPsychological: Appropriate mood and behaviorSkin: Warm and dry, no lesions, no rashes Medications: Medications: ANTI-INFECTIVES: 1. metroNIDAZOLE 500 mg IVPB/ Premixed Soln 100 mL: 100 mL IntraVenousPiggyback Every 8 Hours2. Vancomycin Oral Liquid: 250 mg Oral Every 6 Hours3. Ciprofloxacin 200 mg IVPB/ Premixed Soln 100 mL: 100 mL IntraVenousPiggyback Every 12 Hours CARDIOVASCULAR AGENTS: 1. Lisinopril: 10 mg Oral Daily2. Isosorbide Mononitrate Extended Release: 60 mg Oral Daily3. Metoprolol Tartrate: 50 mg Oral Every 12 Hours CENTRAL NERVOUS SYSTEM AGENTS: 1. Acetaminophen: 650 mg Oral Every 4 Hours PRN2. Gabapentin: 300 mg Oral 3 Times a Day COAGULATION MODIFIERS: 1. Heparin Flush 10 unit/ mL PF Injectable: 5 mL IntraVenous Flush Every 12Hours PRN2. Heparin Flush 10 unit/ mL PF Injectable PRN: 5 mL IntraVenous FlushAccording to Flush Policy PRN3. Clopidogrel: 75 mg Oral Daily GASTROINTESTINAL AGENTS: 1. Docusate: 100 mg Oral Daily2. Pantoprazole: 40 mg Oral Daily GENITOURINARY TRACT AGENTS: 1. Oxybutynin: 5 mg Oral 3 Times a Day PRN NUTRITIONAL PRODUCTS: 1. Dextrose 5% - NaCL 0.9% Infusion: 1000 mL IntraVenous 2. Ferrous Sulfate: 325 mg Oral 2 Times a Day3. Potassium Chloride Extended Release: 20 mEq Oral Daily4. Sodium Chloride 0.9% Injectable Flush: 10 mL IntraVenous Flush Every 90Imjra8. Sodium Chloride 0.9% Injectable Flush PRN: 10 mL IntraVenous FlushAccording to Flush Policy PRN6. Calcium 500 mg - Vitamin D 200 Units: 1 tablet(s) Oral Daily7. Multivitamin with Minerals: 1 tablet(s) Oral Daily PSYCHOTHERAPEUTIC AGENTS: 1. buPROPion Extended Release (24 hour): 150 mg Oral Every 24 Hours2. Sertraline: 150 mg Oral Daily RADIOLOGIC AGENTS: 1. Ioversol (Optiray 350-Radiology Contrast): 64.5 mL IntraVenous Push Once TOPICAL AGENTS: 1. Witch Giorgi Topical: 1 application(s) Topical 2 Times a Day PRN2. Fluticasone 50 microgram/ Nasal Inhalation: 1 spray(s) Each NostrilDaily Currently Suspended Medications ---- 1. Furosemide: 20 mg Oral Daily2. tiZANidine: 2 mg Oral Every 24 Hours3. Enoxaparin SubCutaneous: 30 mg SubCutaneous Every 24 Hours4. traZODone: 50 mg Oral 3 Times a Day PRN Recent Lab Results: Results: I have reviewed these laboratory results: Complete Blood Count + Differential Trending View [id number] 03:32:00 09-Oct-2017 15:37:00White Blood Cell Count7.4 7.0Red Blood Cell Count3.02 L 3.22 LHGB9.4 L 10.0 LHCT29.3 L 32.1 LMCV97 023TNUD31.1 31.2 RSWS851 285RDW-CV15.9 H 16.0 HNeutrophil %69.7 69.0Immature Granulocytes %0.3 0.3Lymphocyte %22.0 23.8Monocyte %5.5 6.1Eosinophil %2.0 0.4Basophil %0.5 0.4Neutrophil Count5.16 4.85Lymphocyte Count1.63 1.67Monocyte Count0.41 0.43Eosinophil Count0.15 0.03Basophil Count0.04 0.03 Basic Metabolic Panel Trending View [id number] 03:32:00 09-Oct-2017 15:37:00Glucose, Amrzs391 H 21AL617 135 LK3.5 4.9RM864 99Bicarbonate, Serum27 27Anion Gap, Serum10 38FDW84 27 HCREAT1.14 H 1.73 HGFR-Non Voipyejs92 A 28 AGFR- Renlexcb91 A 34 ACalcium, Serum8.2 L 9.5 Lactate, Level Trending View [id number] 17:49:00 09-Oct-2017 15:37:00Lactate, Level0.6 2.2 H Urinalysis 09-Oct-2017 17:44:00 ResultValueColor, Urine YELLOW Reference Range: STRAW,YELLOWAppearance, Urine HAZYSpecific Max, Urine 1.009pH, Urine 5.0Protein, Urine NEGATIVEGlucose, Urine NEGATIVEBlood, Urine NEGATIVEKetones, Urine NEGATIVEBilirubin, Urine NEGATIVEUrobilinogen, Urine <2.0Nitrite, Urine NEGATIVELeukocyte Esterase, Urine NEGATIVE Occult Blood Test 09-Oct-2017 15:42:00 ResultValueOccult Bld 1 POSITIVE A Clostridium Difficile Toxin, PCR 09-Oct-2017 15:39:00 ResultValueClostridium Difficile Toxin, PCR DETECTED Reference Range: Not Detected This assay detects the presence of the tcdB(toxin B) gene via DNA amplification, and results should be interpreted in the context of the patients history and clinical findings. This test cannot be perfo ALab Comment: +CDPCR Called- RB to OSMAR SANTILLAN, 10/10/2017 03:35 Hepatic Function Panel 09-Oct-2017 15:37:00 ResultValueAspartate Transaminase, Serum 19ALB 3.1 LT Bili 0.4Bilirubin, Serum Direct - Conjugated 0.1ALKP 67Alanine Aminotransferase, Serum 9T Pro 6.4 PT + INR, Plasma 09-Oct-2017 15:37:00 ResultValueProthrombin Time, Plasma 11.5International Normalized Ratio, Plasma 1.1 Amylase, Serum 09-Oct-2017 15:37:00 ResultValueAmylase, Serum 58 Lipase, Serum 09-Oct-2017 15:37:00 ResultValueLipase, Serum 50 Troponin I, Serum 09-Oct-2017 15:37:00 ResultValueTroponin I, Serum <0.02 Ethanol Level 09-Oct-2017 15:37:00 ResultValueEthanol Level <10 Culture, Blood 09-Oct-2017 15:37:00 ResultValueCulture, Blood NEGATIVE TO DATE, CULTURE IN PROGRESS. Radiology Results: Results: Impression: There is diffuse colonic mural thickening and mild pericolonic fatstranding, suspicious for colitis. Possible etiologies includeinfectious/inflammato ry or ischemic; ischemia is thought somewhatless likely given the diffuse colonic involvement. There isperipheral intraluminal serpiginous high density throughout the colonwhich could relate to mucosal sloughing/intraluminal hemorrhage. Nodefinite pneumatosis is seen. No bowel obstruction, pneumoperitoneumor intraperitoneal collection. Colonoscopic correlation is suggestedfollowing resolution of patient's acute illness if not recentlyperformed to exclude underlying colorectal carcinoma. Additional findings, as above. CT Abdomen and Pelvis with Contrast [Oct 09 2017 7:00PM] Impression:CT Abdomen and Pelvis with Contrast [Oct 09 2017 5:18PM] Impression: 1. There is a new PICC line that appears to be redundant upon itselfjust above the right atrium. See discussion above.2. Rather large hiatus hernia similar to the prior exam.3. Posttraumatic changes in the right chest wall. Healing ribs whencompared to prior exam.4. New left-sided 9th and 10th rib fractures. Xray Chest 1 View [Oct 09 2017 3:53PM] Impression:Xray Chest 2 View PA + Lateral [Oct 09 2017 2:28PM] Assessment:C diff infectionResolved RADHA Oral Vancomycin tapering regimenD/C Ciprofloxacin and MetronidazoleMonitor stoolSupportive careContact plus precautionsMonitor temp/wbc Electronic Signatures:Clif Eid) (Signed 10-Oct-2017 21:36)Authored: Service, History of Present Illness, Past Medical/Surgical History,Review Family/Social History and ROS, Allergies, Objective,Assessment/Recomme ndations, Signature/Cosignature/Attest ation Last Updated: 10-Oct-2017 21:36 by Clif Eid) [facility] Consult-Surgeryon 10-10-2017 Consult-Surgery Service:Service: Leonora keller Consult:Consult requested by (Attending Name): Joy: COLITIS / ABDOMINAL PAIN History of Present Illness:HPI:ELDERLY PATIENT WELL KNOWN TO ME WHO IS 4 MONTHS S/P RIGHT HEMICOLECTOMY FORCECAL VOLVULUS / HAD A STORMY POST OPERATIVE COURSE BUT EVENTUALLY DISCHARGED /HAD HISTORY OF C DIFF IN THE PAST / WAS NOTED OT HAVE ABDOMINAL PAIN IN THE NHAND HYPOTENSION / NO DIARRHEA / BROUGHT TO THE ER AND NOTED TO HAVE EVIDENCE OFCOLITIS ON CT SCAN / C DIFF WAS POSITIVE Past Medical History/Past Surgical History - see Patient Info Tab/SignificantEvents Past Medical/Surgical History: Medical History: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:Constipation:Ileus:E xploratory laparotomy:Anemia due to unknown or multiple mechanisms (disorder):Transient ischemic colitis (disorder):Protein malnutrition unspecified (disorder):Hypokalemia (disorder):Magnesium deficiency:Colitis (disorder):Small bowel obstruction (disorder):Acute bowel obstruction: Onset Date: [id number] bowel obstruction:Acute bowel obstruction:Generalized abdominal pain (finding): Review Family/Social History and ROS:Family History:Family History: reviewed and not pertinent to presenting problem Social History: Social History: denies smoking, alcohol and drug use Constitutional: POSITIVE: Anorexia, Weight Loss, Malaise; NEGATIVE: Fever,Chills Cardiac: POSITIVE: Dyspnea on Exertion, Orthopnea, Palpitations; NEGATIVE:Chest Pain, Syncope Gastrointestinal: POSITIVE: Nausea, Diarrhea, Constipation, Abdominal Pain;NEGATIVE: Vomiting Musculoskeletal: POSITIVE: Decreased ROM, Pain, Swelling, Stiffness, Weakness All Other Systems: All other systems reviewed and are negative Allergies:? Lincocin: Rash? penicillin: Rash? tetracycline: Rash? erythromycin: Rash? Keflex: Syncope? Lunesta: Unknown? penicillin G benzathine: Unknown? Biaxin: Unknown? trazodone: Unknown? Clindamycin Hydrochloride: Unknown? aspirin: GI Bleeding? Vioxx: Bleeding? NSAIDs: GI Bleeding? Mold/Fungi: Unknown? Pollen: Unknown Intolerances:? Ativan: Confusion? Restoril: Confusion Objective: Objective Information: T [id number]/739 5%Date/Time10/10 7: 7: 7: 7: 7:17Range(36.5C - 36.7C ) (63 - 77 ) (16 - 18 ) (69 - 170 )/ (38 - 80 ) (91%- 95% ) Physical Exam: Constitutional: FRAIL , no distress, alert, INTERMITTENTLY CONFUSEDEyes: clear scleraENMT: mucous membranes moist, no apparent injury, no lesions seenHead/Neck: Neck supple, no apparent injury, no bruitsRespiratory/Thorax: Patent airways, CTAB, normal breath soundsCardiovascular: Regular, rate and rhythm, no murmurs, normal S 1and S 2Gastrointestinal: Nondistended, soft, MILD ABDOMINAL DISCOMFORT , no guarding,no masses palpable, no organomegaly,Genitourinary: No Discharge, vesicles or other abnormalitiesMusculoskeletal : ROM intact, no joint swelling,Extremities: normal extremities, no cyanosis edema, contusions or wounds, noclubbingNeurological: WEKA STRENGTHLymphatic: No significant lymphadenopathyPsychological : Appropriate mood and behaviorSkin: Warm and dry, no lesions, no rashes Recent Lab Results: Results: I have reviewed these laboratory results: Complete Blood Count + Differential 10-Oct-2017 03:32:00 ResultValueWhite Blood Cell Count 7.4Red Blood Cell Count 3.02 LHGB 9.4 LHCT 29.3 LMCV 97MCHC 32.1PLT 246RDW-CV 15.9 HNeutrophil % 69.7Immature Granulocytes % 0.3Lymphocyte % 22.0Monocyte % 5.5Eosinophil % 2.0Basophil % 0.5Neutrophil Count 5.16Lymphocyte Count 1.63Monocyte Count 0.41Eosinophil Count 0.15Basophil Count 0.04 Basic Metabolic Panel 10-Oct-2017 03:32:00 ResultValueGlucose, Serum 102 HNA 137K 3.5CL 104Bicarbonate, Serum 27Anion Gap, Serum 10BUN 18CREAT 1.14 HGFR-Non 46 AGFR- 56 ACalcium, Serum 8.2 L Radiology Results: Results: Impression: There is diffuse colonic mural thickening and mild pericolonic fatstranding, suspicious for colitis. Possible etiologies includeinfectious/inflammato ry or ischemic; ischemia is thought somewhatless likely given the diffuse colonic involvement. There isperipheral intraluminal serpiginous high density throughout the colonwhich could relate to mucosal sloughing/intraluminal hemorrhage. Nodefinite pneumatosis is seen. No bowel obstruction, pneumoperitoneumor intraperitoneal collection. Colonoscopic correlation is suggestedfollowing resolution of patient's acute illness if not recentlyperformed to exclude underlying colorectal carcinoma. Additional findings, as above. CT Abdomen and Pelvis with Contrast [Oct 09 2017 7:00PM] Assessment:IMP - RECURRENT C DIFF COLITIS / 4 MONTHS S/P RIGHT COLECTOMY FOR CECALVOLVULUS PLAN - PO VANCOMYCIN - PROLONGED COURSE /SERIAL EXAMS / WILL FOLLOW Electronic Signatures:Manny Arana) (Signed 11-Oct-2017 08:19)Authored: Service, History of Present Illness, Past Medical/Surgical History,Review Family/Social History and ROS, Allergies, Objective,Assessment/Recomme ndations, Signature/Cosignature/Attest ation Last Updated: 11-Oct-2017 08:19 by Manny Arana) Normal [facility] History and Physicalon 10-10 History and Physical History of Present Illness:Admission Reason: abd pain, diarrhea, weakness, not feeling wellHPI:Patient is a frail elderly 82 year old female from home with husbandwho stated that she has had abdominal pain, diarrhea, not eating, generalizedweakness for the past one week or so but worse since Thursday. Denied f/c. Hassome urinary discomfort. PMHx significant for failure to thrive,gastrocutaneous fistula, constipation, ileus, small bowel obstruction,transient ischemic colitis, anemia, protein calorie malnutrition, hypokalemia,hypomagnesemia and colitis was admitted from the [place] emergency room due tocolitis. Patient has had multiple abdominal surgeries in the past. She wasrecently discharged from the hospital on 09/01/17 and then a week later formanagement of small bowel obstruction and AMS. Treatment course in the ED included starting IV fluids, Cipro, Flagyl and oralVanco.stool for c diff +.Sodium 135, K 4.1, Bun/Creat 27/1.73Access started by PICC PRODUCTION CONTROL SPECIALIST in ED Past medical history: As stated above. Past surgical history: Multiple abdominal surgeries Social history: Patient never smoked. She is retired. No illicit drug use.She is and has one child. Family history significant for diabetes Admitted to [facility] med/surg with consults to surgery and ID Comorbidities:? Comorbid Conditionshypertension Allergies:? Lincocin: Rash? penicillin: Rash? tetracycline: Rash? erythromycin: Rash? Keflex: Syncope? Lunesta: Unknown? penicillin G benzathine: Unknown? Biaxin: Unknown? trazodone: Unknown? Clindamycin Hydrochloride: Unknown? aspirin: GI Bleeding? Vioxx: Bleeding? NSAIDs: GI Bleeding? Mold/Fungi: Unknown? Pollen: Unknown Intolerances:? Ativan: Confusion? Restoril: Confusion Medications Prior to Admission: Centrum Silver oral tablet: 1 tab(s) orally once a dayalendronate 70 mg oral tablet: 1 tab(s) orally once a week on Thursdayclopidogrel 75 mg oral tablet: 1 tab(s) orally once a dayZoloft 100 mg oral tablet: 1.5 tab(s) orally once a dayFlonase 50 mcg/inh nasal spray: 1 spray(s) in each nostril once a dayColace 100 mg oral capsule: 1 cap(s) orally once a day, As Neededlisinopril 10 mg oral tablet: 1 tab(s) orally once a daymetoprolol tartrate 50 mg oral tablet: 1 tab(s) orally every 12 hoursoxybutynin 5 mg oral tablet: 1 tab(s) orally 3 times a day, As Neededfurosemide 20 mg oral tablet: 1 tab(s) orally once a eegF-H-Jv-F-SatiZANidine 2 mg oral tablet: 1 tab(s) orally once a daygabapentin 300 mg oral capsule: 1 cap(s) orally 3 times a daysaliva substitutes oral solution: 15 milliliter(s) orally 4 times a dayOs-Ramiro Calcium+D3 oral tablet: 1 tab(s) orally once a dayisosorbide mononitrate 60 mg oral tablet, extended release: 1 tab(s) orallyonce a dayferrous sulfate 325 mg (65 mg elemental iron) oral tablet: 1 tab(s) orally oncea daypotassium chloride extended release: 1 tab(s) orally once a dayProtonix 40 mg oral delayed release tablet: 1 tab(s) orally once a dayWellbutrin XL 150 mg/24 hours oral tablet, extended release: 1 tab(s) orallyevery 24 hours. Review of Systems:Incomplete ROS: patient's impaired mental status Gastrointestinal: POSITIVE: Nausea, Diarrhea, Abdominal Pain Genitourinary: POSITIVE: Frequency Musculoskeletal: POSITIVE: Weakness All Other Systems: All other systems reviewed and are negative Objective: Objective Information: T [id number]/739 5%Date/Time10/10 7: 7: 7: 7: 7:17Range(36.5C - 36.7C ) (63 - 77 ) (16 - 18 ) (69 - 170 )/ (38 - 80 ) (91%- 95% ) Weights8 21:07: Weight in kg (Weight (kg)) 41.68 21:07: Weight in lbs ((lbs)) 91.7831 21:07: BMI (kg/m2) (BMI (kg/m2)) 17.337 Physical Exam: Constitutional: Well developed, awake/alert/oriented x3, no distress, alert andcooperativeEyes: PERRL, EOMI, clear scleraENMT: mucous membranes moist, no apparent injury, no lesions seenHead/Neck: Neck supple, no apparent injury, thyroid without mass or tenderness,No JVD, trachea midline, no bruitsRespiratory/Thorax: Patent airways, CTAB, normal breath sounds with good chestexpansion, thorax symmetricCardiovascular: Regular, rate and rhythm, no murmurs, 2+ equal pulses of theextremities, normal S 1and S 2Gastrointestinal: Nondistended, soft, non-tender, no rebound tenderness orguarding, no masses palpable, no organomegaly, +BS, no bruitsGenitourinary: soto cath draining yellow urineMusculoskeletal: ROM intact, no joint swelling, normal strengthExtremities: normal extremities, no cyanosis edema, contusions or wounds, noclubbingNeurological: alert and oriented x3, intact senses, motor, response andreflexes, normal strengthLymphatic: No significant lymphadenopathySkin: Warm and dry, no lesions, no rashes Medications: Medications: Continuous Medications ---- 1. Dextrose 5% - NaCL 0.9% Infusion: 1000 mL IntraVenous Scheduled Medications ---- 1. buPROPion Extended Release (24 hour): 150 mg Oral Every 24 Hours2. Calcium 500 mg - Vitamin D 200 Units: 1 tablet(s) Oral Daily3. Ciprofloxacin 200 mg IVPB/ Premixed Soln 100 mL: 100 mL IntraVenousPiggyback Every 12 Hours4. Clopidogrel: 75 mg Oral Daily5. Docusate: 100 mg Oral Daily6. Ferrous Sulfate: 325 mg Oral 2 Times a Day7. Fluticasone 50 microgram/ Nasal Inhalation: 1 spray(s) Each NostrilDaily8. Gabapentin: 300 mg Oral 3 Times a Day9. Ioversol (Optiray 350-Radiology Contrast): 64.5 mL IntraVenous Push Once 10. Isosorbide Mononitrate Extended Release: 60 mg Oral Daily11. Lisinopril: 10 mg Oral Daily12. Metoprolol Tartrate: 50 mg Oral Every 12 Hours13. metroNIDAZOLE 500 mg IVPB/ Premixed Soln 100 mL: 100 mL IntraVenousPiggyback Every 8 Hours14. Multivitamin with Minerals: 1 tablet(s) Oral Daily15. Pantoprazole: 40 mg Oral Daily16. Potassium Chloride Extended Release: 20 mEq Oral Daily17. Sertraline: 150 mg Oral Daily18. Sodium Chloride 0.9% Injectable Flush: 10 mL IntraVenous Flush Every 42Uiafg15. Vancomycin Oral Liquid: 250 mg Oral Every 6 Hours PRN Medications ---- 1. Acetaminophen: 650 mg Oral Every 4 Hours2. Heparin Flush 10 unit/ mL PF Injectable: 5 mL IntraVenous Flush Every 78Fwijo6. Heparin Flush 10 unit/ mL PF Injectable PRN: 5 mL IntraVenous FlushAccording to Flush Policy4. Oxybutynin: 5 mg Oral 3 Times a Day5. Sodium Chloride 0.9% Injectable Flush PRN: 10 mL IntraVenous FlushAccording to Flush Policy6. Witch Giorgi Topical: 1 application(s) Topical 2 Times a Day Currently Suspended Medications ---- 1. Enoxaparin SubCutaneous: 30 mg SubCutaneous Every 24 Hours2. Furosemide: 20 mg Oral Daily3. tiZANidine: 2 mg Oral Every 24 Hours4. traZODone: 50 mg Oral 3 Times a Day Recent Lab Results: Results: I have reviewed these laboratory results: Complete Blood Count + Differential Trending View [id number] 03:32:00 09-Oct-2017 15:37:00 05-Oct-2017 15:23:00White Blood Cell Count7.4 7.0 6.9Red Blood Cell Count3.02 L 3.22 L 3.58 LHGB9.4 L 10.0 L 11.0 LHCT29.3 L 32.1 L 35.7 LMCV97 100 257GIXU86.1 31.2 L 30.8 ZERL041 285 397RDW-CV15.9 H 16.0 H 16.2 HNeutrophil %69.7 69.0 54.6Immature Granulocytes %0.3 0.3 0.3Lymphocyte %22.0 23.8 35.8Monocyte %5.5 6.1 7.0Eosinophil %2.0 0.4 1.3Basophil %0.5 0.4 1.0Neutrophil Count5.16 4.85 3.75Lymphocyte Count1.63 1.67 2.46Monocyte Count0.41 0.43 0.48Eosinophil Count0.15 0.03 0.09Basophil Count0.04 0.03 0.07 Basic Metabolic Panel Trending View [id number] 03:32:00 09-Oct-2017 15:37:00Glucose, Gotzb791 H 96ME610 135 LK3.5 4.7CB345 99Bicarbonate, Serum27 27Anion Gap, Serum10 98DLG05 27 HCREAT1.14 H 1.73 HGFR-Non Fmlwpsvx82 A 28 AGFR- Vwybqvxq75 A 34 ACalcium, Serum8.2 L 9.5 Lactate, Level Trending View [id number] 17:49:00 09-Oct-2017 15:37:00Lactate, Level0.6 2.2 H Urinalysis 09-Oct-2017 17:44:00 ResultValueColor, Urine YELLOW Reference Range: STRAW,YELLOWAppearance, Urine HAZYSpecific Max, Urine 1.009pH, Urine 5.0Protein, Urine NEGATIVEGlucose, Urine NEGATIVEBlood, Urine NEGATIVEKetones, Urine NEGATIVEBilirubin, Urine NEGATIVEUrobilinogen, Urine <2.0Nitrite, Urine NEGATIVELeukocyte Esterase, Urine NEGATIVE Occult Blood Test 09-Oct-2017 15:42:00 ResultValueOccult Bld 1 POSITIVE A Clostridium Difficile Toxin, PCR 09-Oct-2017 15:39:00 ResultValueClostridium Difficile Toxin, PCR DETECTED Reference Range: Not Detected This assay detects the presence of the tcdB(toxin B) gene via DNA amplification, and results should be interpreted in the context of the patients history and clinical findings. This test cannot be perfo ALab Comment: +CDPCR Called- RB to OSMAR SANTILLAN, 10/10/2017 03:35 Hepatic Function Panel 09-Oct-2017 15:37:00 ResultValueAspartate Transaminase, Serum 19ALB 3.1 LT Bili 0.4Bilirubin, Serum Direct - Conjugated 0.1ALKP 67Alanine Aminotransferase, Serum 9T Pro 6.4 PT + INR, Plasma 09-Oct-2017 15:37:00 ResultValueProthrombin Time, Plasma 11.5International Normalized Ratio, Plasma 1.1 Amylase, Serum 09-Oct-2017 15:37:00 ResultValueAmylase, Serum 58 Lipase, Serum 09-Oct-2017 15:37:00 ResultValueLipase, Serum 50 Troponin I, Serum 09-Oct-2017 15:37:00 ResultValueTroponin I, Serum <0.02 Ethanol Level 09-Oct-2017 15:37:00 ResultValueEthanol Level <10 Culture, Blood 09-Oct-2017 15:37:00 ResultValueCulture, Blood NEGATIVE TO DATE, CULTURE IN PROGRESS. Comprehensive Metabolic Panel 05-Oct-2017 15:23:00 ResultValueGlucose, Serum 89NA 136K 5.8 HCL 101Bicarbonate, Serum 25Anion Gap, Serum 16BUN 26 HCREAT 1.36 HGFR-Non 37 AGFR- 45 ACalcium, Serum 10.2ALB 3.6ALKP 73T Pro 7.5T Bili 0.4Alanine Aminotransferase, Serum 8Aspartate Transaminase, Serum 16 Magnesium, Serum 05-Oct-2017 15:23:00 ResultValueMagnesium, Serum 2.24 Radiology Results: Results:No Results have been selected. Please select Results from the AvailableResults list before marking as Reviewed. Impression: There is diffuse colonic mural thickening and mild pericolonic fatstranding, suspicious for colitis. Possible etiologies includeinfectious/inflammato ry or ischemic; ischemia is thought somewhatless likely given the diffuse colonic involvement. There isperipheral intraluminal serpiginous high density throughout the colonwhich could relate to mucosal sloughing/intraluminal hemorrhage. Nodefinite pneumatosis is seen. No bowel obstruction, pneumoperitoneumor intraperitoneal collection. Colonoscopic correlation is suggestedfollowing resolution of patient's acute illness if not recentlyperformed to exclude underlying colorectal carcinoma. Additional findings, as above. CT Abdomen and Pelvis with Contrast [Oct 09 2017 7:00PM] Impression:CT Abdomen and Pelvis with Contrast [Oct 09 2017 5:18PM] Assessment and Plan:Assessment:Acute colitis, c diff, hx of multiple bowel surgeries sbo- IV Cipro, Flagyl, oral vanco- IV fluids- poor oral intake- surgery and ID consulted HTN- continue Metoprolol, Imdur, Lisinopril CAD- continue Plavix Seasonal allergies- continue Flonase Other: continue vit D, calcium Anemia- continue daily iron, colace Soto cath- remove Poor IV acces- likely due to dehydration, PICC line inserted in ED by PICC COMMUNITY LIVING SPECIALIST Anxiety, depression- continue Wellbutrin, Sertraline Insomnia- continue to hold Trazadone Gerd- continue PPI Neuropathy pain- hold Tizandine- continue Neurotin for now Urinary frequency, continue home medication DVT Ambulation, Lovenox held due to anemia Disposition: [facility] med/surg. Home soon. Signatures/Attestation/Certi fication:Comments/ Additional FindingsPatient seen personally by me in collaboration with PRODUCTION CONTROL SPECIALIST. Agree with POC asdocumented above. Attending Provider ? Inpatient Certification StatementI certify this patient?chang for inpatient care based on the above documentation including; the orderto admit as inpatient, the anticipated length of stay, diagnosis, problem listand plan of care, and discharge plan. [facility] Admission: Thepatient can reasonably be expected to be discharged or transferred to anotherhospital within 96 hours after admission to the [facility]. Electronic Signatures:Aria Gandhi) (Signed 10-Oct-2017 13:46)Authored: Signatures/Attestation/Certi ficationCo-Signer: History of Present Illness, Comorbidities, Allergies, MedicationsPrior to Admission, Review of Systems, Objective, Assessment and Plan,Signatures/Attestation/ CertificationAlex Mayer (DANCE ARTIST-COMMUNITY LIVING SPECIALIST) (Signed 10-Oct-2017 10:21)Authored: History of Present Illness, Comorbidities, Allergies, MedicationsPrior to Admission, Review of Systems, Objective, Assessment and Plan,Signatures/Attestation/ Certification Last Updated: 10-Oct-2017 13:46 by Aria Gandhi) Normal [facility] ALCOHOLon 10-09-2017 Ethanol mass conc mg/dL Normal [facility] Comment on above: Result Comment: FOR MEDICAL USE ONLY..REF VALUES <10 Performed By: #### L IPID ####[id number] [place] [address] AMYLASEon 10-09-2017 Amylase enzyme act/vol 58 U/L Normal 29 - 103 [facility] Comment on above: Performed By: #### L IPID ####[facility] [place] [address] Admission Risk Screen - Adul ton 10-09-2017 Admission Risk Screen - Adult Allergies: Allergies:? Lincocin: Rash? penicillin: Rash? tetracycline: Rash? erythromycin: Rash? Keflex: Syncope? Lunesta: Unknown? penicillin G benzathine: Unknown? Biaxin: Unknown? trazodone: Unknown? Clindamycin Hydrochloride: Unknown? aspirin: GI Bleeding? Vioxx: Bleeding? NSAIDs: GI Bleeding? Mold/Fungi: Unknown? Pollen: Unknown Intolerances:? Ativan: Confusion? Restoril: Confusion Patient Verification:? New W ID Band Applied in my Departmentyes? Patient Identity Verified Bypatient? ID Band FULL Name, include Middle, spelling matches patient's ID used forverificationyes? ID Band Matches Patient ID used for Verficationyes? ID Band MRN Matches EMR MRNyes Advance Directive:? Advance Directive Medicalyes? Advance Directive typeDNR-CC? DNR-CC Availabilityplaced in chart? DNR-CC Placed on [id number] Falls Screen:Type of AssessmentadmissionModerate Risk Factorspatient care equipment (scds, iv?s, chest tubes, soto,etc)High Risk Factorsagitation/confusion, gait instabilityRisk for Injury Associated with FallnoneFall Risk Conclusionhigh falls risk with low risk for associated injuryUniversal Safety InterventionsWDL *orient to call system *instruct to call forassistance before getting out of bed *non-slip footwear when patient is out ofbed *call hoffman in reach *personal items and telephone in reach *physically safeenvironment (no spills or clutter) *bed in lowest position with wheels locked*appropriate side rails in place *room/bathroom lighting operational, lightcord in reach *appropriate signage on doorFall and Injury Risk Interventionssupervised toileting (mandatory for all highrisk patients), exit (bed/chair) alarms (mandatory for all high risk patients),bed alarm - zero scale to ensure bed alarm operation, educate patient/familyfor risk for injury (fractures and bleeding), do not leave patient unattendedwhile in the bathroom Family Violence Screen:? Are you or have you been threatened or abused physically, emotionally, orsexually by anyone?no? Has anyone ever threatened to hurt your family or your pets?no? Does anyone try to keep you from having/contacting other friends or doingthings outside your home?no? Do you feel UNSAFE going back to the place where you are living?no? Do you feel anyone has exploited or taken advantage of you financially or ofyour personal property?no? Clinical assessment: Are there any apparent signs of injuries/behaviors thatcould be related to abuse/neglectno? Social Service Consult for abuse/neglect needed this visit?no Functional screen:? Functional Screen: In the recent/past 2-4 weeks, patient or family havenoticedno issues that require a rehabilitation consult at this time Learning Assessment (Patient):? Patient is Able to be Assessed for Learningyes? Factors Influencing Readiness to Learnacuteness of illness; anxiety? Factors that Impact Ability to Learnnone? Devices/Methods Used to Communicatenone? Learning Preferencesindividual instruction? Cultural Considerationsnone? Developmental Considerationsnone? Restoration Considerationsnone Learning Assessment (Other Learner):? Other learner availableno Suicide/Depression Screen:? During the past month, have you often been bothered by feeling down,depressed or hopeless?no? During the past month, have you often had little interest or pleasure indoing things?no? Have you had any thoughts of harming yourself?no (1)? Have you had any thoughts of harming anyone else?no (1) Adult Nutrition Screen:? Have you recently lost weight without tryingno? Have you been eating poorly because of a decreased appetiteno? MST Score0? RiskMST = 0 or 1 Not at risk. Eating well with little or no weight loss? Nutrition Consult needed this visit?no? Can Patient Participate in Room Service?yes, with assistance? Patient requires Paper Dishes/Plastic Utensilsno Pain Screen:? Pain Scalenumerical 0-10? Pain Scale Educationteaching provided? Current Pain Level0 = None? Acceptable Pain Level3 = Mild? Expression of Pain (nonverbal)verbalization? Lifestyle Changes/Adaptations in Response to Paindecreased activity level? Barriers to Reporting Painnone? Chronic Painno Spiritual Screen:? Are there any cultural, spiritual, scientology practices/values/needs that areimportant for us to know?no? Do you want a visit/item from Pastoral Care?no? Would you like your Fire Prevention Captain/Land Measurer notified?no CAGE:Is this an injured patient at a Trauma Center ([facility] / [place]): no Vaccinations:Vaccination - Influenza Vaccination Screen:? Is it flu season? (between and )Yes ? Screening for identified contraindications to influenza vaccinationnocontraindicatio ns identified? Influenza vaccine indicated?yes Vaccination - Pneumonia Vaccination Screen:? Patient has received a previous pneumonia vaccine:no/unknown... ? Pneumonia vaccine NOT indicated due to:No contraindications to vaccine? Pneumonia vaccine indicated?yes Moustapha:Skin - Moustapha Scale: ? Moustapha: Sensory Perception (response to environment)(3) slightly limited? Moustapha: Moisture (degree skin exposed to moisture)(2) very moist? Moustapha: Activity (ability to walk)(3) walks occasionally? Moustapha: Mobility (amount/control of body movement)(3) slightly limited? Moustapha: Nutrition (quality of food intake)(2) probably inadequate? Moustapha: Friction and Shear(2) potential problem? Moustapha: Score15 ? Skin Intervention Orders (Nursing orders will be generated)elevate heels, upin chair < 1 hr intervals, turn side to side every 2 hrs, assess fortherapeutic equipment, assess pressure points, hygiene care, toilet/ADL every 2hrs awake, toilet/ADL every 4 hrs asleep, educate prevent/treat pressure ulcer Significant Indicatiors:Significant Indicators: Complete Pressure Injury:Pressure Injury Present on Admissionno Electronic Signatures:Lien Bobo (RN) (Signed 09-Oct-2017 21:05)Authored: Admission Risk Screens, Vaccinations, Moustapha, Pressure InjuryGladys Jordan (RN) (Signed 11-Oct-2017 09:08)Authored: Vaccinations Last Updated: 11-Oct-2017 09:08 by Gladys Jordan (CINTHYA) References:1. Data Referenced From Triage - ED 10/09/2017 1:22 PM Normal [facility] BASIC METABOLIC PANELon 08-3 Anion gap 3 molar conc 13 mmol/L Normal 10 - 20 [facility] Comment on above: Performed By: #### L IPID ####[id number] [place] [address] Calcium mass conc 9.5 mg/dL Normal 8.6 - 10.3 [facility] Comment on above: Performed By: #### L IPID ####[id number] [place] [address] Chloride molar conc 99 mmol/L Normal 98 - 107 [facility] Comment on above: Performed By: #### L IPID ####[address] [address] Creatinine mass conc 1.73 mg/dL High 0.50 - 1.05 [facility] Comment on above: Performed By: #### L IPID ####[address] [address] GFR- AM. 34 mL/min/1.73m2 Abnormal >60 [facility] Comment on above: Result Comment: CALC ULATIONS OF ESTIMATED GFR ARE PERFORMED USING THE MDRD STUDY EQUATION FOR THE IDMS-TRACEABLE CREATININE METHODS. CLIN CHEM 2007;53:766-72 Performed By: #### L IPID ####[address] [address] GFR-NON AM. 28 mL/min/1.73m2 Abnormal >60 [facility] Comment on above: Performed By: #### L IPID ####[address] [address] Glucose mass conc 85 mg/dL Normal 74 - 99 [facility] Comment on above: Performed By: #### L IPID ####[address] [place] [address] HCO3 molar conc (Bld) 27 mmol/L Normal 21 - 32 [facility] Comment on above: Performed By: #### L IPID ####[address] [place] [address] Potassium molar conc 4.1 mmol/L Normal 3.5 - 5.3 [facility] Comment on above: Performed By: #### L IPID ####[facility] [place] [address] Sodium molar conc 135 mmol/L Low 136 - 145 [facility] Comment on above: Performed By: #### L IPID ####[facility] [place] [address] Urea nitrogen mass conc 27 mg/dL High 6 - 23 [facility] Comment on above: Performed By: #### L IPID ####[facility] [place] [address] BLOOD CULTURE, BACTERIALon 0 10-09-2017 BLOOD CULTURE, BACTERIAL PATIENT: KATHERINE JUDGE LOCATION: [facility] [id number]#: [id number] : [birth year] AGE: SEX: F ORDERED BY: LOTUS VANCE: Blood COLLECTED: 10/09/17 15:37ANTIBIOTICS AT ESDRAS.: RECEIVED : 10/09/17 22:30SITE: PERIPHERAL R E S U L T S BLOOD CULTURE, BACTERIAL FINAL 10/14/17 23:42 No Growth at 1 days No Growth at 2 days No Growth at 3 days No Growth at 4 days NO GROWTH - FINAL REPORT Normal [facility] Comment on above: Performed By: #### V TDOH ####[facility] [place] [address] BLOOD CULTURE, BACTERIAL TEST BLOOD CULTURE, BACTERIAL WAS CANCELLED, 10/16/2017 16:10 DUPLICATE ORDER.PATIENT: KATHERINE JUDGE LOCATION: [id number]#: [id number] : [birth year] AGE: SEX: F ORDERED BY: LOTUS VANCE: Blood COLLECTED: 10/09/17 15:30ANTIBIOTICS AT ESDRAS.: RECEIVED : SITE: PERIPHERAL R E S U L T S BLOOD CULTURE, BACTERIAL CANCELLED 10/16/17 16:10 Normal [facility] Comment on above: Performed By: #### V TDOH ####[facility] [place] [address] CBC AND DIFFERENTIALon 10-09 % AUTOMATED IMMATURE GRAN 0.3 % Normal 0.0 - 0.9 [facility] Comment on above: Result Comment: Perc ent differential counts (%) should be interpreted in the context of the absolute cell counts (cells/L). Performed By: #### L IPID ####[address] [address] % NEUTROPHIL 69.0 % Normal 40.0 - 80.0 [facility] Comment on above: Performed By: #### L IPID ####[address] [address] Basophils/100 WBC Auto (Bld) 0.4 % Normal 0.0 - 2.0 [facility] Comment on above: Performed By: #### L IPID ####[address] [address] Basophils/100 WBC Auto (Bld) 0.03 x10E9/L Normal 0.00 - 0.10 [facility] Comment on above: Performed By: #### L IPID ####[address] [address] Eosinophils Auto #/vol (Bld) 0.03 10*3/uL Normal 0.00 - 0.40 [facility] Comment on above: Performed By: #### L IPID ####[address] [address] Eosinophils/100 WBC Auto (Bld) 0.4 % Normal 0.0 - 6.0 [facility] Comment on above: Performed By: #### L IPID ####[address] [address] Erythrocyte distribution width Auto Ratio (RBC) 16.0 % High 11.5 - 14.5 [facility] Comment on above: Performed By: #### L IPID ####[address] [address] Hematocrit Auto Volume Fraction (Bld) 32.1 % Low 36.0 - 46.0 [facility] Comment on above: Performed By: #### L IPID ####[address] [address] Hemoglobin mass conc (Bld) 10.0 g/dL Low 12.0 - 16.0 [facility] Comment on above: Performed By: #### L IPID ####[address] [address] Lymphocytes Auto #/vol (Bld) 1.67 10*3/uL Normal 0.80 - 3.00 [facility] Comment on above: Performed By: #### L IPID ####[address] [address] Lymphocytes/100 WBC Auto (Bld) 23.8 % Normal 13.0 - 44.0 [facility] Comment on above: Performed By: #### L IPID ####[address] [address] MCHC Auto mass conc (RBC) 31.2 g/dL Low 32.0 - 36.0 [facility] Comment on above: Performed By: #### L IPID ####[address] [address] MCV Auto Entitic volume (RBC) 100 fL Normal 80 - 100 [facility] Comment on above: Performed By: #### L IPID ####[address] [address] Monocytes Auto #/vol (Bld) 0.43 10*3/uL Normal 0.05 - 0.80 [facility] Comment on above: Performed By: #### L IPID ####[address] [address] Monocytes/100 WBC Auto (Bld) 6.1 % Normal 2.0 - 10.0 [facility] Comment on above: Performed By: #### L IPID ####[address] [address] Neutrophils Auto #/vol (Bld) 4.85 10*3/uL Normal 1.60 - 5.50 [facility] Comment on above: Performed By: #### L IPID ####[address] [address] Platelets Auto #/vol (Bld) 285 10*3/uL Normal 150 - 450 [facility] Comment on above: Performed By: #### L IPID ####[facility] [place] [address] RBC Auto #/vol (Bld) 3.22 x10E12/L Low 4.00 - 5.20 [facility] Comment on above: Performed By: #### L IPID ####[facility] [place] [address] WBC Auto #/vol (Bld) 7.0 10*3/uL Normal 4.4 - 11.3 [facility] Comment on above: Performed By: #### L IPID ####[facility] [place] [address] CHEST 1 VIEWon 10-09-2017 CHEST 1 VIEW Name: KATHERINE JUDGE STUDY:CHEST 1 VIEW; 10/09/2017 3:11 pm INDICATION:Signs/Symptoms: hypotension. COMPARISON:None. ORDERING CLINICIAN:ALEX TILLMAN FINDINGS:Sternal wires are noted. In the interval since the prior exam thereis a new right arm PICC line. This line appears to be redundant uponitself above the cavoatrial junction. A course into the azygos veinat this site is a consideration. Correlate with line function. CARDIOMEDIASTINAL SILHOUETTE:Cardiac silhouette is normal in size without venous congestion. Thereis likely a large hiatus hernia similar to prior exam. LUNGS:No definite new focal lung opacities. Chronic lung disease/COPD. ABDOMEN:No remarkable upper abdominal findings. BONES:Healed or healing right rib fractures similar to the prior exam. Inthe interval since the prior exam there appears to be a new fractureof the posterior 9th and 10th ribs. IMPRESSION:1. There is a new PICC line that appears to be redundant upon itselfjust above the right atrium. See discussion above.2. Rather large hiatus hernia similar to the prior exam.3. Posttraumatic changes in the right chest wall. Healing ribs whencompared to prior exam.4. New left-sided 9th and 10th rib fractures.Electronically signed by: THANH COLLADO MD Normal [facility] CT ABDOMEN AND PELVIS WO CON TRASTon 10-09-2017 CT ABDOMEN AND PELVIS WO CONTRAST Name: KATHERINE JUDGE STUDY:CT ABDOMEN AND PELVIS WO CONTRAST; 10/09/2017 5:14 pm INDICATION:Signs/Symptoms: Abdominal pain, history of cecal volvulus, smallbowel obstruction requiring resection, hypotension and weakness. COMPARISON:08/25/2017 ORDERING CLINICIAN:MARIA A VANCE TECHNIQUE:Axial CT images of the abdomen and pelvis without IV contrast, withcoronal and sagittal reconstructed images. Oral contrast wasadministered. FINDINGS:LOWER CHEST: No acute abnormality of the lung bases. Mild bibasilarreticular opacity suggesting atelectasis or scar. Large hiatal herniacontaining a mostly intrathoracic stomach as well as the tail of thepancreas and distal splenic vessels. The heart is normal in size.Coronary artery calcifications noted. The distal end of a centralvenous catheter is seen to extend through the right atrium into thecranial aspect of the intrahepatic IVC.BONES: No acute osseous abnormality. Osteopenia. Reverse sigmoidthoracolumbar curvature. Chronic appearing moderate compression of L1and mild compression of L3 as well as severe compression of R74jthinypak bodies noted. Degenerative disc space narrowing of varyingdegrees seminal tubal levels, most severe at L2-L3. Mild multilevelbilateral hypertrophic lumbar facet arthropathy. Mild bilateral hiposteoarthrosis. No suspicious osseous lesion is seen.ABDOMINAL WALL: Mid ventral abdominal postsurgical scarring. ABDOMEN: LIVER: Within normal limits.BILE DUCTS: Normal caliber.GALLBLADDER: Cholelithiasis without evidence for acute cholecystitis.PANCREAS: Atrophic but otherwise grossly normal.SPLEEN: Within normal limits.ADRENALS: Within normal limits.KIDNEYS and URETERS: Small simple cyst again seen in the upper poleof the right kidney. Otherwise, normal. VESSELS: No aortic aneurysm. Moderate atherosclerotic calcificationof the abdominal aorta and branch vessels.RETROPERITONEUM: No pathologically enlarged retroperitoneal lymphnodes. PELVIS: REPRODUCTIVE ORGANS: No pelvic masses. Patient is post hysterectomy.BLADDER: Within normal limits. BOWEL: A surgical anastomosis is again seen in the right mid abdomen.Stomach and small bowel are grossly normal. There is normal transitof oral contrast which reaches the distal ileum. There is diffusecolonic mural thickening and mild pericolonic fat stranding,suspicious for colitis. There is peripheral intraluminal serpiginoushigh density throughout the colon which could relate to mucosalsloughing/intralumina l hemorrhage. No definite pneumatosis is seen.Normal appendix.PERITONEUM: No ascites or free air, no fluid collection. IMPRESSION:There is diffuse colonic mural thickening and mild pericolonic fatstranding, suspicious for colitis. Possible etiologies includeinfectious/inflammato ry or ischemic; ischemia is thought somewhatless likely given the diffuse colonic involvement. There isperipheral intraluminal serpiginous high density throughout the colonwhich could relate to mucosal sloughing/intraluminal hemorrhage. Nodefinite pneumatosis is seen. No bowel obstruction, pneumoperitoneumor intraperitoneal collection. Colonoscopic correlation is suggestedfollowing resolution of patient's acute illness if not recentlyperformed to exclude underlying colorectal carcinoma. Additional findings, as above. Electronically signed by: LEIGH ANN VALLADARES MD Normal [facility] HEPATIC FUNCTION PANELon Albumin mass conc 3.1 g/dL Low 3.4 - 5.0 [facility] Comment on above: Performed By: #### L IPID ####[address] [place] [address] ALP enzyme act/vol 67 U/L Normal 33 - 136 [facility] Comment on above: Performed By: #### L IPID ####[address] [place] [address] ALT enzyme act/vol 9 U/L Normal 7 - 45 [facility] Comment on above: Result Comment: Viv ents treated with Sulfasalazine may generate falsely decreased results for ALT. Performed By: #### L IPID ####[address] [place] [address] AST enzyme act/vol 19 U/L Normal 9 - 39 [facility] Comment on above: Performed By: #### L IPID ####[address] [place] [address] Bilirubin mass conc 0.4 mg/dL Normal 0.0 - 1.2 [facility] Comment on above: Performed By: #### L IPID ####[address] [address] Bilirubin.direct mass conc 0.1 mg/dL Normal 0.0 - 0.3 [facility] Comment on above: Performed By: #### L IPID ####[address] [address] Protein mass conc 6.4 g/dL Normal 6.4 - 8.2 [facility] Comment on above: Performed By: #### L IPID ####[address] [place] [address] LACTATEon 10-09-2017 Lactate molar conc 0.6 mmol/L Normal 0.4 - 2.0 [facility] Comment on above: Result Comment: Hali puncture immediately after or during the administration of Metamizole may lead to falsely low results. Testing should be performed immediately prior to Metamizole dosing. Performed By: #### L IPID ####[address] [address] Lactate molar conc 2.2 mmol/L High 0.4 - 2.0 [facility] Comment on above: Result Comment: Hali puncture immediately after or during the administration of Metamizole may lead to falsely low results. Testing should be performed immediately prior to Metamizole dosing. Performed By: #### L IPID ####[address] [address] LIPASEon 10-09-2017 Lipase enzyme act/vol 50 U/L Normal 9 - 82 [facility] Comment on above: Result Comment: Hali puncture immediately after or during the administration of Metamizole may lead to falsely low results. Testing should be performed immediately prior to Metamizole dosing. Performed By: #### L IPID ####[address] [address] OCCULT BLOOD TEST,STOOLon OCCULT BLOOD,STOOL Positive Abnormal Negative [facility] Comment on above: Performed By: #### L IPID ####[address] [address] PT/INRon 10-09-2017 INR Coag RelTime (PPP) 1.1 {INR} Normal 0.9 - 1.1 [facility] Comment on above: Performed By: #### L IPID ####[address] [address] Prothrombin time (PT) Coag time (PPP) 11.5 s Normal 9.8 - 12.7 [facility] Comment on above: Performed By: #### L IPID ####[facility] [place] [address] Patient Profile - Adult v2on 10-09-2017 Protein mass conc Profile:Initial Info :How to be AddressedAliceSpoken Language PreferredEnglish (1)Source of InformationpatientAre you currently using the Personal Electronic Health Record or MYUHCAREnoAre you interested in learning more about [facility] for the management of yourhealthdeclinedStated Reason for Admissiondizziness weakness low BPPrimary Contact Name and [phone] brother Nancy VelozLimitations on Visitors/Phone CallsnoneTemporary Family Living Arrangements (While Hospitalized)none neededArrived Fromemergency departmentWas Admitted To in Past 90 Daysskpromed[facility] nursing facilityEmployment StatusdisabledCurrent or Previous ServicenonePatient Belongingsremains with patientPatient Belongings Remaining with PatientclothingMedications Brought to HospitalnoHistory of MDROyesOrganism NameC - Diff General Health:Weight in kg41.6 kilogram(s)Weight in lbs91.7 pound(s)Height in feet5 feetHeight in inches1 inch(es)Height in cm154.9 centimeter(s)BMI (kg/m2)17.337 square meterWeight Methodactual (measured)Scale TypebedHeight MethodstatedBlood Avoidance/RestrictionsnonePr evious Transfusion Reactionno RSP Based Care:How would you like to participate in your care?keep informedWhat is the number one concern for you during this hospitalization?get wellenough to go homeWhat is the most important thing we can do to support you during thishospitalization?noIs there anything we need to know to best care for you?keep brother informedRecent Change in Mood/BehaviordeniesMajor Change/Loss/Stressor/Fearsde nies Substance:Current or Former Substance Use never: Cigarette/Tobacco(1), Alcohol(1),Street Drugs(1) Health Mgmt:Symptoms/Conditions Managed at HomecardiovascularCardiovasc ular Symptoms/Conditionsheart failureCardiovascular Management Strategiesdiet modification; fluid modification;medication therapyCardiovascular Managementmanaged Relationship/Environ:Primary Source of Support/Comfortextended familyLives Withsibling(s)Living ArrangementshouseSignificant ExposurenoneResource/Environ mental ConcernsnoneAnticipated Transition TohomeServices Anticipated at TransitionnoneSignificant IndicatorsComplete Information Review:? Allergies, Home Meds and Significant Events have been Reviewed and Verifiedwith Patient/Familyyes ALLERGY, INTOLERANCE, ADVERSE EVENT: Allergies:? Lincocin: Drug, Rash, Active? penicillin: Drug, Rash, Active? tetracycline: Drug, Rash, Active? erythromycin: Drug, Rash, Active? Keflex: Drug, Syncope, Active? Lunesta: Drug, Unknown, Active? penicillin G benzathine: Drug, Unknown, Active? Biaxin: Drug, Unknown, Active? trazodone: Drug, Unknown, Active? Clindamycin Hydrochloride: Drug, Unknown, Active? aspirin: Drug, GI Bleeding, Active? Vioxx: Drug, Bleeding, Active? NSAIDs: Drug Category, GI Bleeding, Active? Mold/Fungi: Environment, Unknown, Active? Pollen: Environment, Unknown, Active Intolerances:? Ativan: Drug, Confusion, Active? Restoril: Drug, Confusion, Active Electronic Signatures:Lien Bobo) (Signed 09-Oct-2017 21:10)Authored: Profile, Additional Information Last Updated: 09-Oct-2017 21:10 by Lien Bobo (CINTHYA) References:1. Data Referenced From Patient Profile - Adult v2 09/05/2017 6:30 AM Normal [facility] Provider Note - ED Care [place]more sitionon 10-09-2017 Protein mass conc ED Care Transition:Alexis perez Review:CLINICAL IMPRESSIONDiagnosis/Annotati on: colitis Dispostion: hospitalized Admit to: Observation. Admitting Considerations: Condition on Disposition: fair ATTESTATION Comments/Additional Findings:Patient has signed a DO NOT RESUSCITATE CC order tonight and after explainingit to her she was able to repeat meaning back to me. CRITICAL CARE TIMEIs this a critically ill patient?: no Electronic Signatures:Spencer Hardy) (Signed 09-Oct-2017 19:35)Authored: ED Care Transition Last Updated: 09-Oct-2017 19:35 by Spencer Hardy) Normal [facility] Provider Note - ED v2on 08- 1-2018 Protein mass conc Provider Note - ED v 2:Chart Review:ED NOTESED NOTES: Patient states she was hospitalized due to GI tract required resection of thebowel and subsequently went to [facility], after [facility] the [facility] treatment patient was at home was doingfine until yesterday she started feeling dizzy and weak, symptom got worse thismorning to the limited she felt she was or pass out as a result she called thesquad, she was found to be hypertensive brought into the ER without IV line inplace. She was noted to have systolic blood pressure of 63. Patient stated thatshe is any fracture but denies any diarrhea or vomiting. Denies any chest painor chest tightness and difficulty breathing. Denies any sputum vision troubleand trouble moving arms or legs or weakness in arms or legs. Denies dysuriafrequency or urgency.Patient has history of small bowel obstruction, history of gastrocutaneousfistula HISTORY OF PRESENTING ILLNESSALICE was seen by me at 09-Oct-2017 13:14 for a chief complaint ofhypotension(1). Triage Information: Most recent Vital Sign Value Date Temp (F): 98 10-09-2017 13:22 Temp (C): 36.7 10-09-2017 13:22 Heart Rate (beats/min): 68 10-09-2017 13:22 Respirations (breaths/min): 18 10-09-2017 13:22 SpO2 (%): 93 10-09-2017 13:22 BP Systolic (mm Hg): 69 10-09-2017 13:22 BP Diastolic (mm Hg): 38 10-09-2017 13:22 PAST MEDICAL HISTORYATTESTATION: I have reviewed and confirmed nurse's/medic's notes for patient'smedications, allergies, medical history, and surgical history ALLERGIES/INTOLERANCES: Allergy Allergen: Lincocin Type: Drug Reaction: Rash Allergen: penicillin Type: Drug Reaction: Rash Allergen: tetracycline Type: Drug Reaction: Rash Allergen: erythromycin Type: Drug Reaction: Rash Allergen: Keflex Type: Drug Reaction: Syncope Allergen: Lunesta Type: Drug Reaction: Unknown Allergen: penicillin G benzathine Type: Drug Reaction: Unknown Allergen: Biaxin Type: Drug Reaction: Unknown Allergen: trazodone Type: Drug Reaction: Unknown Allergen: Clindamycin Hydrochloride Type: Drug Reaction: Unknown Allergen: aspirin Type: Drug Reaction: GI Bleeding Allergen: Vioxx Type: Drug Reaction: Bleeding Allergen: NSAIDs Type: Drug Category Reaction: GI Bleeding Allergen: Mold/Fungi Type: Environment Reaction: Unknown Allergen: Pollen Type: Environment Reaction: Unknown Intolerance Allergen: Ativan Type: Drug Reaction: Confusion Allergen: Restoril Type: Drug Reaction: Confusion HEALTH HISTORY: Medical History Name:Generalized abdominal pain (finding) Code:N/A Name:Acute bowel obstruction Code:N/A Name:Small bowel obstruction (disorder) Code:N/A Name:Colitis (disorder) Code:N/A Name:Magnesium deficiency Code:N/A Name:Hypokalemia (disorder) Code:N/A Name:Protein malnutrition unspecified (disorder) Code:N/A Name:Transient ischemic colitis (disorder) Code:N/A Name:Anemia due to unknown or multiple mechanisms (disorder) Code:N/A Name:Exploratory laparotomy Code:N/A Name:Ileus Code:N/A Name:Constipation Code:N/A Name:Gastrocutaneous fistula Code:N/A Name:Failure to thrive Code:R62.51 OUTPATIENT MEDICATIONS: Home Medications Review Status for Reconciliation: N/Guillaume Status: Patient Currently Takes Medications Drug Name: Centrum Silver oral tabletInstructions: 1 tab(s) orally once a day Drug Name: alendronate 70 mg oral tabletInstructions: 1 tab(s) orally once a week on Thursday Drug Name: clopidogrel 75 mg oral tabletInstructions: 1 tab(s) orally once a day Drug Name: Zoloft 100 mg oral tabletInstructions: 1.5 tab(s) orally once a day Drug Name: Flonase 50 mcg/inh nasal sprayInstructions: 1 spray(s) in each nostril once a day Drug Name: Colace 100 mg oral capsuleInstructions: 1 cap(s) orally once a day, As Needed Drug Name: lisinopril 10 mg oral tabletInstructions: 1 tab(s) orally once a day Drug Name: metoprolol tartrate 50 mg oral tabletInstructions: 1 tab(s) orally every 12 hours Drug Name: oxybutynin 5 mg oral tabletInstructions: 1 tab(s) orally 3 times a day, As Needed Drug Name: furosemide 20 mg oral tabletInstructions: 1 tab(s) orally once a sbpS-X-Ag-F-Sa Drug Name: tiZANidine 2 mg oral tabletInstructions: 1 tab(s) orally once a day Drug Name: gabapentin 300 mg oral capsuleInstructions: 1 cap(s) orally 3 times a day Drug Name: saliva substitutes oral solutionInstructions: 15 milliliter(s) orally 4 times a day Drug Name: Os-Ramiro Calcium+D3 oral tabletInstructions: 1 tab(s) orally once a day Drug Name: isosorbide mononitrate 60 mg oral tablet, extended releaseInstructions: 1 tab(s) orally once a day Drug Name: ferrous sulfate 325 mg (65 mg elemental iron) oral tabletInstructions: 1 tab(s) orally once a day Drug Name: potassium chloride extended releaseInstructions: 1 tab(s) orally once a day Drug Name: Protonix 40 mg oral delayed release tabletInstructions: 1 tab(s) orally once a day SIGNIFICANT EVENTS: Clinical Events This Visit Description:12-25-2009 cabgx2 STRONG Lft SVG Status:Active Description:Surgical Procedure Additional Notes:Coronary Artery Bypass Status:Active Description:Surgical Procedure Additional Notes:Epidural Injection Status:Active Description:Surgical Procedure Additional Notes:Epidural Injection Status:Active Description:Surgical Procedure Additional Notes:Epidural Injection Status:Active Description:Surgical Procedure Additional Notes:Joint Injection Status:Active Description:Surgical Procedure Additional Notes:Facet Injection Status:Active Description:Surgical Procedure Additional Notes:Facet Injection Status:Active Description:Surgical Procedure Additional Notes:Facet Injection Status:Active Description:Surgical Procedure Additional Notes:Bowel Resection Supine Status:Active Description:Surgical Procedure Additional Notes:Laparotomy Exploratory Status:Active Description:Surgical Procedure Additional Notes:Line Placement Central Status:Active Description:Surgical Procedure Additional Notes:Gastrostomy/Jejunostom y Status:Active Description:Surgical Procedure Additional Notes:US GUIDED PLACEMENT LEFT IJ TLC / ELAP / ANDREIA / RIGHTCOLECTOMY / STAPLED ILEOCOLONIC ANASTAMOSIS / BILATERAL TAP BLOCK Status:Active Immunizations Description:.Influenza- Influenza Virus Status:Active Description:.Pneumonia- Pneumococcal polysaccharide vaccine-adult Status:Active Infection Control Description:Clostridium difficile toxin (C-Diff) Additional Notes:came with ( [facility] Status:Active Description:Methicillin-Resi stant Staph Aureus (MRSA) Additional Notes:sputum Status:Active Description:Clostridium difficile toxin (C-Diff) Status:Active Other Description:Narcotic Use Status:Active Description:Family spokesperson Additional Notes: CARLOS [phone] BROTHER RYLAND [phone] Status:Active Past Medical History Description:colitis Status:Active Description:mitral valve regurgitation Status:Active Description:gi bleed Status:Active Description:Hypertension (HTN) Status:Active Description:arthritis Status:Active Description:herniated disc lumbar area Status:Active Description: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 Description:depression Status:Active Description:anxiety Status:Active Description:osteoporosis Status:Active Description:diverticulitis Status:Active Description:umbilical hernia Status:Active Description:UTI Status:Active Description:GERD Status:Active Description:CAD Status:Active Description:Non ST elevation NE Status:Active Description:Coronary atherosclerosis Status:Active Description:Sepsis Status:Active Description:Venous thromboembolism Status:Active Description:Chronic anemia Status:Active Description:Congestive Heart Failure (CHF) Status:Active Past Surgical History Description:cataract Additional Notes:bilateral with lens implant Status:Active Description:bilat knee replacement Status:Active Description:complete hysterectomy Additional Notes:26 years ago Status:Active Description:appendectomy Additional Notes:26 years ago Status:Active Description:Cardiac Catheterization Status:Active Description:CABG (2 vessel) Status:Active REVIEW OF SYSTEMSCONSTITUTIONAL: Negative for: chills and feverCARDIOVASCULAR: Negative for: chest pain, edema and palpitationsRESPIRATORY: Negative for: cough and dyspneaGASTROINTESTINAL: POSITIVE for: abdominal pain; Negative for: constipation,diarrhea and nausea; change in bowel habits, hematochezia, melena, rectal painand stool incontinenceGENITOURINARY: Negative for: dysuria, frequency and urgency;MUSCULOSKELETAL: POSITIVE for: weakness Negative for: back pain and neck painNEUROLOGICAL: Negative for: dizziness and headache; neck stiffnessHEME/LYMPH: Negative for: jaundice and swollen lymph nodes PHYSICAL EXAMCONSTITUTIONAL: Elderly female patient was talking and breathing without anyacute distress she felt weak but no facial asymmetry no drooping or droolingWnoted moving arms or legs. Talking and breathing without acute distress she wasnoted be hypertensive with systolic blood pressure of 60. But she had good skinperfusion. Neck was supple. She was talking comfortably alert oriented times 3 HENMT: Airway patent, ears with clear tympanic membranes bilaterally. Nasalmucosa clear. Mouth with normal mucosa. Throat has no vesicles, nooropharyngeal exudates and uvula is midline. Neck was supple EYES: Conjunctiva pink, sclera anicteric, pupils equal, round and reactive tolight. CARDIOVASCULAR: Normal rate, regular rhythm. Heart sounds S1, S2. No murmurs,rubs or gallops. PMI non-displaced, Pulse and nontender. Homans sign negative.Intact distal pulses and intact sensation. No peripheral edema. Good peripheralpulses. Cap refill less than 2 seconds RESPIRATORY: No retractions or use of accessory muscles. Breath sounds clearand equal bilaterally. GASTROINTESTINAL: Abdominal Exam: soft,no organomegaly and no splenomegaly Masses: no pulsating masses Bowel SoundsDetail: Bowel Sounds: normal Abdominal Tenderness: non-tender AbdominalGuarding: no guarding Rebound: no rebound tenderness GENITOURINARY: no cva tenderness MUSCULOSKELETAL: Spine appears normal, range of motion is not limited, nomuscle or joint tenderness. NEUROLOGICAL: Alert and oriented, no focal deficits, no motor or sensorydeficits. SKIN: Skin normal color for race, warm, dry and intact. No evidence of traumaor lesions. RESULTS/VITAL SIGNS VITAL SIGNS: T PRBP SpO2O2(LPM) %FiO2 [id number] 13:22:[id number] 93 room air, no respiratorysupport EKG INTERPRETATION:EKG Date/Time: 09-Oct-2017 12:59Rate: 71Prior EKG Status: the EKG is unchanged from prior EKGComments: Normal sinus rhythm rate of 71. Right bundle-branch block. Leftposterior fascicular block. Bifascicular block. Artifact limitinginterpretation data. When compared with a prior EKG of July 26 2017 nosignificant interval change noted. Abnormal EKG. This EKG is read by me P CLINICAL IMPRESSIONDiagnosis/Annotati on: colitis Dispostion: hospitalized Condition on Disposition: stable ATTESTATION CRITICAL CARE TIMEIs this a critically ill patient?: no Electronic Signatures:Maria A Vance) (Signed 09-Oct-2017 13:56)Authored: Provider Note - ED Spencer Willoughby) (Signed 09-Oct-2017 19:42)Authored: Provider Note - ED v2 Last Updated: 09-Oct-2017 19:42 by Spencer Hardy) References:1. Data Referenced From Triage - ED 10/09/2017 1:22 PM Normal [facility] TROPONIN Ion 10-09-2017 Troponin I.cardiac mass conc ng/mL Normal 0.00 - 0.03 [facility] Comment on above: Result Comment: LESS THAN 0.04 NG/ML: NEGATIVEREPEAT TESTING IN FOUR TO SIX HOURSIF CLINICALLY INDICATED.0.04 - 0.5 NG/ML: CONSISTENT WITH POSSIBLECARDIAC DAMAGE AND POSSIBLE INCREASEDCLINICAL RISK.SERIAL MEASUREMENTS MAY HELP ASSESS EXTENT OFMYOCARDIAL DAMAGE.>0.5 NG/ML: CONSISTENT WITH CARDIAC DAMAGE,INCREASED CLINICAL RISK AND MYOCARDIALINFARCTION. SERIAL MEASUREMENTS MAY HELPASSESS EXTENT OF MYOCARDIAL DAMAGE..Note: Troponin I testing is performed using differenttesting methodology at [facility]. Direct result comparisons should onlybe made within the same method. Performed By: #### L IPID ####[facility] [place] [address] Triage - EDon 10-09-2017 Triage - ED Pain:Pain Rating (0- 10): Rest5 Chart Review:CHIEF COMPLAINT KATHERINE JUDGE is a Female patient with a chief complaint of hypotension.Triage Date/Time: 09-Oct-2017 12:52Pain Rating (0-10): Rest: 5Vital Signs:Temperature: 98.0F ( 36.7C) taken oralBlood Pressure: 69/38 Mean:Heart Rate: 68Respiratory Rate: 18Pulse Oximetry: 93% on room air, no respiratory support. Height: 5 feet 1.00inches. 154.9 CMWeight: 95.0 pounds. Calculated 43.0 kg. (stated)Calculated BMI (kg/m2): 17.921 Calculated BSA (m2) 1.36 Cough lasting greater than 3 weeks: noTravel outside of [place]: noAllergies: yesPatient has suicidal thoughts: noPatient has homicidal thoughts: noESI: 3 PAIN Pain Scale Used: SANDOVAL ARRIVAL INFORMATION Means of Arrival: stretcher Mode of Arrival: ambulance Arrival From: homeAccompanied By: spouse/significant other andimmediate family member PRIMARY ASSESSMENT ABCD Normal Findings: airway open and patent, breathing normal and alert andorientedCirculationSkin Condition: drySkin Color: pale Past Medical History:? Past Medical History Reviewedyes Electronic Signatures:Nelia Pierre (RN) (Signed 09-Oct-2017 13:24)Authored: Triage, Past Medical History Last Updated: 09-Oct-2017 13:24 by Nelai Pierre (RN) Normal [facility] URINALYSISon 10-09-2017 APPEARANCE HAZY Normal CLEAR [facility] Comment on above: Performed By: #### L IPID ####[id number] [place] [address] BILIRUBIN Negative Normal NEGATIVE [facility] Comment on above: Performed By: #### L IPID ####[address] [place] [address] BLOOD Negative Normal NEGATIVE [facility] Comment on above: Performed By: #### L IPID ####[id number] [place] [address] COLOR YELLOW Normal STRAW,YELL OW [facility] Comment on above: Performed By: #### L IPID ####[address] [place] [address] GLUCOSE Negative Normal NEGATIVE [facility] Comment on above: Performed By: #### L IPID ####[address] [place] [address] KETONES Negative Normal NEGATIVE [facility] Comment on above: Performed By: #### L IPID ####[address] [place] [address] LEUKOCYTE ESTERASE Negative Normal NEGATIVE [facility] Comment on above: Performed By: #### L IPID ####[address] [place] [address] NITRITE Negative Normal NEGATIVE [facility] Comment on above: Performed By: #### L IPID ####[address] [place] [address] pH 5.0 Normal 5.0 - 8.0 [facility] Comment on above: Performed By: #### L IPID ####[address] [place] [address] Protein mass conc Negative Normal NEGATIVE [facility] Comment on above: Performed By: #### L IPID ####[address] [place] [address] SPECIFIC GRAVITY 1.009 Normal 1.005 - 1.035 [facility] Comment on above: Performed By: #### L IPID ####[address] [place] [address] UROBILINOGEN <2.0 Normal 0.0 - 1.9 [facility] Comment on above: Performed By: #### L IPID ####[id number] [place] [address] URINE CULTURE,BACTERIALon URINE CULTURE,BACTERIAL PATIENT: KATHERINE JUDGE LOCATION: [address]#: [id number] : [birth year] AGE: SEX: F ORDERED BY: LOTUS VANCE: URINE COLLECTED: 10/09/17 17:44ANTIBIOTICS AT ESDRAS.: RECEIVED : 10/10/17 09:59SITE: Straight Cath R E S U L T S URINE CULTURE,BACTERIAL FINAL 10/11/17 09:09 NO GROWTH Normal [facility] Comment on above: Performed By: #### V TDOH ####[facility] [place] [address] CBC AND DIFFERENTIALon 10-05 % AUTOMATED IMMATURE GRAN 0.3 % Normal 0.0 - 0.9 [facility] Comment on above: Result Comment: Perc ent differential counts (%) should be interpreted in the context of the absolute cell counts (cells/L). Performed By: #### L IPID ####[facility] [place] [address] % NEUTROPHIL 54.6 % Normal 40.0 - 80.0 [facility] Comment on above: Performed By: #### L IPID ####[address] [place] [address] Basophils/100 WBC Auto (Bld) 1.0 % Normal 0.0 - 2.0 [facility] Comment on above: Performed By: #### L IPID ####[address] [place] [address] Basophils/100 WBC Auto (Bld) 0.07 x10E9/L Normal 0.00 - 0.10 [facility] Comment on above: Performed By: #### L IPID ####[address] [address] Eosinophils Auto #/vol (Bld) 0.09 10*3/uL Normal 0.00 - 0.40 [facility] Comment on above: Performed By: #### L IPID ####[address] [address] Eosinophils/100 WBC Auto (Bld) 1.3 % Normal 0.0 - 6.0 [facility] Comment on above: Performed By: #### L IPID ####[address] [address] Erythrocyte distribution width Auto Ratio (RBC) 16.2 % High 11.5 - 14.5 [facility] Comment on above: Performed By: #### L IPID ####[address] [address] Hematocrit Auto Volume Fraction (Bld) 35.7 % Low 36.0 - 46.0 [facility] Comment on above: Performed By: #### L IPID ####[address] [address] Hemoglobin mass conc (Bld) 11.0 g/dL Low 12.0 - 16.0 [facility] Comment on above: Performed By: #### L IPID ####[address] [address] Lymphocytes Auto #/vol (Bld) 2.46 10*3/uL Normal 0.80 - 3.00 [facility] Comment on above: Performed By: #### L IPID ####[address] [address] Lymphocytes/100 WBC Auto (Bld) 35.8 % Normal 13.0 - 44.0 [facility] Comment on above: Performed By: #### L IPID ####[address] [address] MCHC Auto mass conc (RBC) 30.8 g/dL Low 32.0 - 36.0 [facility] Comment on above: Performed By: #### L IPID ####[address] [address] MCV Auto Entitic volume (RBC) 100 fL Normal 80 - 100 [facility] Comment on above: Performed By: #### L IPID ####[address] [address] Monocytes Auto #/vol (Bld) 0.48 10*3/uL Normal 0.05 - 0.80 [facility] Comment on above: Performed By: #### L IPID ####[address] [address] Monocytes/100 WBC Auto (Bld) 7.0 % Normal 2.0 - 10.0 [facility] Comment on above: Performed By: #### L IPID ####[address] [address] Neutrophils Auto #/vol (Bld) 3.75 10*3/uL Normal 1.60 - 5.50 [facility] Comment on above: Performed By: #### L IPID ####[address] [address] Platelets Auto #/vol (Bld) 397 10*3/uL Normal 150 - 450 [facility] Comment on above: Performed By: #### L IPID ####[address] [address] RBC Auto #/vol (Bld) 3.58 x10E12/L Low 4.00 - 5.20 [facility] Comment on above: Performed By: #### L IPID ####[address] [address] WBC Auto #/vol (Bld) 6.9 10*3/uL Normal 4.4 - 11.3 [facility] Comment on above: Performed By: #### L IPID ####[address] [address] COMPREHENSIVE PANELon 2017 Albumin mass conc 3.6 g/dL Normal 3.4 - 5.0 [facility] Comment on above: Performed By: #### L IPID ####[address] [place] [address] ALP enzyme act/vol 73 U/L Normal 33 - 136 [facility] Comment on above: Performed By: #### L IPID ####[address] [place] [address] ALT enzyme act/vol 8 U/L Normal 7 - 45 [facility] Comment on above: Result Comment: Viv ents treated with Sulfasalazine may generate falsely decreased results for ALT. Performed By: #### L IPID ####[address] [address] Anion gap 3 molar conc 16 mmol/L Normal 10 - 20 [facility] Comment on above: Performed By: #### L IPID ####[address] [address] AST enzyme act/vol 16 U/L Normal 9 - 39 [facility] Comment on above: Performed By: #### L IPID ####[address] [place] [address] Bilirubin mass conc 0.4 mg/dL Normal 0.0 - 1.2 [facility] Comment on above: Performed By: #### L IPID ####[address] [address] Calcium mass conc 10.2 mg/dL Normal 8.6 - 10.3 [facility] Comment on above: Performed By: #### L IPID ####[address] [place] [address] Chloride molar conc 101 mmol/L Normal 98 - 107 [facility] Comment on above: Performed By: #### L IPID ####[address] [place] [address] Creatinine mass conc 1.36 mg/dL High 0.50 - 1.05 [facility] Comment on above: Performed By: #### L IPID ####[address] [address] GFR- AM. 45 mL/min/1.73m2 Abnormal >60 [facility] Comment on above: Result Comment: CALC ULATIONS OF ESTIMATED GFR ARE PERFORMED USING THE MDRD STUDY EQUATION FOR THE IDMS-TRACEABLE CREATININE METHODS. CLIN CHEM 2007;53:766-72 Performed By: #### L IPID ####[address] [place] [address] GFR-NON AM. 37 mL/min/1.73m2 Abnormal >60 [facility] Comment on above: Performed By: #### L IPID ####[address] [place] [address] Glucose mass conc 89 mg/dL Normal 74 - 99 [facility] Comment on above: Performed By: #### L IPID ####[address] [address] HCO3 molar conc (Bld) 25 mmol/L Normal 21 - 32 [facility] Comment on above: Performed By: #### L IPID ####[address] [address] Potassium molar conc 5.8 mmol/L High 3.5 - 5.3 [facility] Comment on above: Performed By: #### L IPID ####[address] [address] Protein mass conc 7.5 g/dL Normal 6.4 - 8.2 [facility] Comment on above: Performed By: #### L IPID ####[address] [address] Sodium molar conc 136 mmol/L Normal 136 - 145 [facility] Comment on above: Performed By: #### L IPID ####[address] [place] [address] Urea nitrogen mass conc 26 mg/dL High 6 - 23 [facility] Comment on above: Performed By: #### L IPID ####[address] [address] MAGNESIUMon 10-05-2017 Magnesium mass conc 2.24 mg/dL Normal 1.60 - 2.40 [facility] Comment on above: Performed By: #### L IPID ####[facility] [place] [address] VIT B1-THIAMINE WHOLE BLDon 09-11-2017 VIT B1-THIAMINE WHOLE BLD 133 nmol/L Normal 70-180 [facility] Comment on above: Result Comment: INTE RPRETIVE INFORMATION: Vitamin B1, Whole BloodThis assay measures the concentration of thiamine diphosphate(TDP), the primary active form of vitamin B1. Approximately 90percent of vitamin B1 present in whole blood is TDP. Thiamine andthiamine monophosphate, which comprise the remaining 10 percent,are not measured.Test developed and characteristics determined by [facility]. See Compliance Statement B: [employer]/CSPerformed by [employer],[address] [place] [address] klx.[employer], Noble Hernandez MD - Lab. Director Performed By: #### V TB1W ####[employer] [place] [id number] Daily Progress Note-Medicine on 09-08-2017 Protein mass conc Service: Medicine Rick bjective Data:KATHERINE JUDGE is a 82 year old Female who is Hospital Day # 4. Objective Data: Objective Information:T [id number]% Date/Time09/08 10: 10: 10: 10: 10:22Range(36.5C - 37C ) (70 - 84 ) (16 - 17 ) (120 - 173 )/ (61 - 79 ) (93% -96% )Highest temp of 37 C was recorded at 09/07 15:07 Pain at Rest reported at 09/08 8:32: 0 Physical Exam: Constitutional: Malnourished female, awake but confused. Not in distress.Eyes: EOMI, clear sclera, no photophobiaENMT: mucous membranes very dry.Respiratory/Thorax: Patent airways, CTAB, normal breath sounds with good chestexpansion, thorax symmetricCardiovascular: Regular, rate and rhythm, 2+ equal pulses of the extremities,normal S 1and S 2Gastrointestinal: Nondistended, soft, non-tender, no rebound tenderness orguarding, +BS, no bruitsExtremities: no cyanosis, no edemaNeurological: no focal deficitsSkin: Warm and dry Medication: Medications: Continuous Medications ---- 1. Sodium Chloride 0.9% with Potassium CL 20 mEq Premix Fluid: 1000 mLIntraVenous Scheduled Medications ---- 1. Artificial Tears (Preservative Free): 2 drop(s) Both Eyes Every 4 Hours 2. Cholecalciferol (Vitamin D3): 1000 International Unit(s) Oral Daily3. Clopidogrel: 75 mg Oral Daily4. Isosorbide Mononitrate Extended Release: 60 mg Oral Daily5. Lidocaine 5% TransDermal: 1 patch TransDermal Every 24 Hours6. Metoprolol Tartrate: 50 mg Oral Every 12 Hours7. Potassium Chloride Powder Packet: 20 mEq Oral Daily PRN Medications ---- 1. Acetaminophen: 650 mg Oral Every 6 Hours2. traMADol: 50 mg Oral Every 6 Hours Recent Lab Results: Results:I have reviewed these laboratory results: Lactate, Level 05-Sep-2017 01:49:00 ResultValueLactate, Level 1.0 Troponin I, Serum 05-Sep-2017 01:49:00 ResultValueTroponin I, Serum 0.02 Urinalysis 05-Sep-2017 01:37:00 ResultValueColor, Urine STRAW Reference Range: STRAW,YELLOWAppearance, Urine CLEARSpecific Max, Urine 1.005pH, Urine 6.0Protein, Urine NEGATIVEGlucose, Urine NEGATIVEBlood, Urine NEGATIVEKetones, Urine NEGATIVEBilirubin, Urine NEGATIVEUrobilinogen, Urine <2.0Nitrite, Urine NEGATIVELeukocyte Esterase, Urine NEGATIVE Complete Blood Count + Differential 05-Sep-2017 01:36:00 ResultValueWhite Blood Cell Count 11.8 HRed Blood Cell Count 2.56 LHGB 8.4 LHCT 25.6 LMCV 100MCHC 32.8PLT 422RDW-CV 15.3 HNeutrophil % 70.6Immature Granulocytes % 0.5Lymphocyte % 21.6Monocyte % 5.9Eosinophil % 1.1Basophil % 0.3Neutrophil Count 8.31 HLymphocyte Count 2.55Monocyte Count 0.70Eosinophil Count 0.13Basophil Count 0.04 Comprehensive Metabolic Panel 05-Sep-2017 01:36:00 ResultValueGlucose, Serum 94NA 138K 3.4 LCL 99Bicarbonate, Serum 28Anion Gap, Serum 14BUN 16CREAT 0.99GFR-Non 54 AGFR- 65Calcium, Serum 9.2ALB 3.3 LALKP 95T Pro 6.9T Bili 0.4Alanine Aminotransferase, Serum 16Aspartate Transaminase, Serum 19 PT + INR, Plasma 05-Sep-2017 01:36:00 ResultValueProthrombin Time, Plasma 11.5International Normalized Ratio, Plasma 1.1 RBC Morphology 05-Sep-2017 01:36:00 ResultValueRed Blood Cell Morphology See BelowHypochromasia Mild I have reviewed these laboratory results: Basic Metabolic Panel 06-Sep-2017 05:45:00 ResultValueGlucose, Serum 110 HNA 139K 3.8CL 104Bicarbonate, Serum 27Anion Gap, Serum 12BUN 7CREAT 0.57GFR-Non >60GFR- >60Calcium, Serum 8.7 Thyroid Stimulating Hormone, Serum 06-Sep-2017 05:45:00 ResultValueThyroid Stimulating Hormone, Serum 2.11 Ammonia, Plasma 06-Sep-2017 05:45:00 ResultValueAmmonia, Plasma 19 Radiology Results: Results: Impression: No acute cardiopulmonary process.Large hiatal hernia. Xray Chest 1 View [Sep 05 2017 2:53AM] Impression: No acute intracranial abnormality. Parenchymal atrophy and chronic small vessel ischemic changes. CT Head without Contrast [Sep 05 2017 2:52AM] Assessment and Plan:Assessment:82-year-old female with a past medical history of failure to thrive,gastrocutaneous fistula, constipation, ileus, small bowel obstruction,transient ischemic colitis, anemia, protein calorie malnutrition, hypokalemia,hypomagnesemia and colitis was admitted from the [facility] emergency room due toaltered mental status. Acute encephalopathy-clearedMRI shows multiple puntate lesion and cortical contusionseen by neurology, likely result from fall, no concern for stroke Status post unwitnessed fall-Periorbital contusion-EKG showed normal sinus rhythm with RBBB and some ST changes in the inferiorleads.-negative orthostatrics Hypokalemia: resolved CODE STATUS: DO NOT RESUSCITATE [facility] records. Patient is back to baseline neurologically, plan to discharge back to nursinghome today. Nutrition Diagnosis:? Nutrition DiagnosisAgree with dietitian?s assessment and diagnoses as stated.Severe protein calorie malnutrition related to inadequate oral intake asevidence by pt with severe muscle/ fat depletion, inadequate oral intake,unintended weight loss (4.5% in 3 months), and failure to thrive.. Electronic Signatures:Roslyn Allan) (Signed 08-Sep-2017 12:58)Authored: Service, Subjective Data, Objective Data, Assessment and Plan,Signature/Cosignature/A ttestation Last Updated: 08-Sep-2017 12:58 by Roslyn Allan) Normal [facility] Consulton 09-07-2017 Consult Service:Consult:Trish on: fall, possible CVA History of Present Illness:HPI:82-year-old female 3rd hospital day, recently hospitalized for SBO,resolved medically. Discharged to SNF. Pt with fall at facility, found sittingon floor. On admit pt with no recollection of fall, and very confused andagitated. Initally con for CVA. Consult by Dr. Nicolas, Head CT and MRI/MRAcompleted. Neg. for CVA.Pt also with h/o with a past medical history of failure to thrive,gastrocutaneous fistula, constipation, ileus, small bowel obstruction,transient ischemic colitis, anemia, protein calorie malnutrition, hypokalemia,hypomagnesemia and colitis. w Patient has had multiple abdominal surgeries inthe past.Orthostatic vitals reviewed, appear positive yesterday.Pt with Creatinine WNL, TSH 2.1, Troponins negative x 3. EKG SR with Rt. BBB,telemetry SR, no arrhythmias.Pt today alert, oriented, pleasant and conversant. again, no recollection offall. does have ecchymotic area left hindu.Previous records reviewed, BP was elevated 2 weeks ago. Pt is known to me, h/o HTN, Aortic stenosis, CABG. She denies any CHF or ACSsxs. PMH: coronary artery disease, status post 2013 circumflex angioplasty, statuspost CABG, last cath patent SVG to the RCA, atretic STRONG to the obtusemarginal, mild diffuse disease in the left main and LAD. hypertension, hyperlipidemia, anemia, and gastrointestinal bleeding. Review Family/Social History and ROS:Family History:Family History: reviewed and not pertinent to presenting problem Social History: Smoking Status: never smokerAlcohol Use: deniesDrug Use: deniesSocial History:Usually at home, independent, son [facility] dtr [facility] Incomplete ROS: patient's impaired mental status Constitutional: POSITIVE: Weight Loss; NEGATIVE: Fever, Chills, Anorexia,Malaise Eyes: NEGATIVE: Blurry Vision, Drainage, Diploplia, Redness, Vision Loss/Change ENMT: NEGATIVE: Nasal Discharge, Nasal Congestion, Ear Pain, Mouth Pain, ThroatPain Respiratory: NEGATIVE: Dry Cough, Productive Cough, Hemoptysis, Wheezing,Shortness of Breath Cardiac: NEGATIVE: Chest Pain, Dyspnea on Exertion, Orthopnea, Palpitations,Syncope Gastrointestinal: NEGATIVE: Nausea, Vomiting, Diarrhea, Constipation, AbdominalPain Genitourinary: NEGATIVE: Discharge, Dysuria, Flank Pain, Frequency, Hematuria Musculoskeletal: POSITIVE: Decreased ROM, Weakness; NEGATIVE: Pain, Swelling,Stiffness; COMMENTS: Fall Neurological: NEGATIVE: Dizziness, Confusion, Headache, Seizures, Syncope Psychiatric: NEGATIVE: Mood Changes, Anxiety, Hallucinations, Sleep Changes,Suicidal Ideas Skin: NEGATIVE: Mass, Pain, Pruritus, Rash, Ulcer Endocrine: NEGATIVE: Heat Intolerance, Cold Intolerance, Sweat, Polyuria,Thirst Allergies:? Lincocin: Rash? penicillin: Rash? tetracycline: Rash? erythromycin: Rash? Keflex: Syncope? Lunesta: Unknown? penicillin G benzathine: Unknown? Biaxin: Unknown? trazodone: Unknown? Clindamycin Hydrochloride: Unknown? aspirin: GI Bleeding? Vioxx: Bleeding? NSAIDs: GI Bleeding? Mold/Fungi: Unknown? Pollen: Unknown Intolerances:? Ativan: Confusion? Restoril: Confusion Objective: Objective Information: T [id number] 4%Date/Time09/07 19: 19:: 19: 19:58Range(36.5C - 37C ) (73 - 99 ) (16 - 19 ) (150 - 173 )/ (70 - 80 ) (94% -98% )Highest temp of 37 C was recorded at 09/07 15:07 Weights09/07 12:36: BMI (kg/m2) (BMI (kg/m2)) 18.858 Pain at Rest reported at 09/07 20:59: 0 TELE SR Physical Exam: Constitutional: Thin, frail appearing elderly female, alert, conversant, NADEyes: EOMI, clear sclera, no photophobiaENMT: mucous membranes very dry.Head/Neck: Neck supple, no apparent injury, thyroid without mass or tenderness,No JVD, trachea midline, no bruitsRespiratory/Thorax: Patent airways, CTAB, normal breath sounds with good chestexpansion, thorax symmetricCardiovascular: Regular, rate and rhythm, 2+ equal pulses of the extremities,normal S 1and S 2Gastrointestinal: Nondistended, soft, non-tender, no rebound tenderness orguarding, +BS, no bruitsGenitourinary: deferMusculoskeletal: ROM intactExtremities: no cyanosis, no edemaNeurological: alert and oriented x3, intact senses, motor, response andreflexes, normal strengthBreast: deferPsychological: Appropriate mood and behaviorSkin: Warm and dry, Vergas, Ecchymotic bruising left hindu. Medications: Medications: Continuous Medications ---- 1. Sodium Chloride 0.9% with Potassium CL 20 mEq Premix Fluid: 1000 mLIntraVenous Scheduled Medications ---- 1. Cholecalciferol (Vitamin D3): 1000 International Unit(s) Oral Daily2. Clopidogrel: 75 mg Oral Daily3. Isosorbide Mononitrate Extended Release: 60 mg Oral Daily4. Lidocaine 5% TransDermal: 1 patch TransDermal Every 24 Hours5. Metoprolol Injectable: 5 mg IntraVenous Push Every 6 Hours6. Potassium Chloride Powder Packet: 20 mEq Oral Daily PRN Medications ---- 1. Acetaminophen: 650 mg Oral Every 6 Hours Recent Lab Results: Results: I have reviewed these laboratory results: Basic Metabolic Panel Trending View [id number] 05:45:00 05-Sep-2017 08:30:00Glucose, Nkdon453 H 111 PBW722 138K3.8 3.2 ACU019 104Bicarbonate, Serum27 26Anion Gap, Serum12 11BUN7 04LCTQF3.57 0.75GFR-Non >60 >60GFR->60 >60Calcium, Serum8.7 8.9 Vitamin B12, Serum 06-Sep-2017 05:45:00 ResultValueVitamin B12, Serum 770 Thyroid Stimulating Hormone, Serum 06-Sep-2017 05:45:00 ResultValueThyroid Stimulating Hormone, Serum 2.11 Vitamin D (25-Hydroxy), Level 06-Sep-2017 05:45:00 ResultValueVitamin D (25-Hydroxy), Level 19 A Ammonia, Plasma 06-Sep-2017 05:45:00 ResultValueAmmonia, Plasma 19 Folate, Serum 06-Sep-2017 05:45:00 ResultValueFolate, Serum > 24.0 Troponin I, Serum Trending View [id number] 11:40:00 05-Sep-2017 08:30:00 05-Sep-2017 01:49:00Troponin I, Serum0.02 0.02 0.02 Complete Blood Count 05-Sep-2017 08:30:00 ResultValueWhite Blood Cell Count 10.6Red Blood Cell Count 2.72 LHGB 8.5 LHCT 27.1 LMCV 100MCHC 31.4 LPLT 359RDW-CV 15.5 H Lactate, Level 05-Sep-2017 01:49:00 ResultValueLactate, Level 1.0 Urinalysis 05-Sep-2017 01:37:00 ResultValueColor, Urine STRAW Reference Range: STRAW,YELLOWAppearance, Urine CLEARSpecific Max, Urine 1.005pH, Urine 6.0Protein, Urine NEGATIVEGlucose, Urine NEGATIVEBlood, Urine NEGATIVEKetones, Urine NEGATIVEBilirubin, Urine NEGATIVEUrobilinogen, Urine <2.0Nitrite, Urine NEGATIVELeukocyte Esterase, Urine NEGATIVE Complete Blood Count + Differential 05-Sep-2017 01:36:00 ResultValueWhite Blood Cell Count 11.8 HRed Blood Cell Count 2.56 LHGB 8.4 LHCT 25.6 LMCV 100MCHC 32.8PLT 422RDW-CV 15.3 HNeutrophil % 70.6Immature Granulocytes % 0.5Lymphocyte % 21.6Monocyte % 5.9Eosinophil % 1.1Basophil % 0.3Neutrophil Count 8.31 HLymphocyte Count 2.55Monocyte Count 0.70Eosinophil Count 0.13Basophil Count 0.04 Radiology Results: Results: Conclusion:Electrocardiogram 12 Lead [Sep 07 2017 11:20AM]Normal sinus rhythmRight bundle branch blockT wave abnormality, consider inferior ischemiaAbnormal ECG Impression: MRI Brain: Punctate focus of diffusion restriction involving right temporalcortex may reflect a small focus of acute to subacute infarct versusa cortical contusion due to recent trauma. Evaluation for hemorrhagicproducts in this region is limited due to motion artifact on gradientecho imaging. Subtle foci of pinpoint diffusion signal abnormalities within theleft aspect of devan may reflect subacute tiny lacunar infarcts versusartifact. Nonspecific white matter changes involving bilateral cerebralhemispheres and brainstem, likely reflectingsequela of chronic smallvessel ischemic disease. Moderate diffuse cerebral volume loss. MRA: Motion limited exam limits evaluation of vascular detail. There is nomajor vessel cutoff on MRA head. Flow signal is identified withinmajorvessels on MRA neck. The study was interpreted at [facility]. MRA Head without Contrast [Sep 06 2017 1:06PM] Impression: No acute cardiopulmonary process.Large hiatal hernia. Xray Chest 1 View [Sep 05 2017 2:53AM] Conclusion:Electrocardiogram 12 Lead [Sep 03 2017 2:09PM] Conclusion:CONCLUSIONS: 1. The left ventricular systolic function is hyperdynamic with a 65-70%estimated ejection fraction. 2. Spectral Doppler shows a pseudonormal pattern of left ventricular diastolicfilling. 3. The left atrium is moderately dilated. 4. There is mild to moderate tricuspid regurgitation. 5. Mild aortic valve stenosis. 6. There is mild aortic valve regurgitation. 7. Moderately elevated pulmonary artery pressure.QUANTITATIVE DATA SUMMARY:2D MEASUREMENTS: Normal Ranges:Ao Root d: 2.40 cm (2.0-3.7cm)LAs: 2.60 cm (2.7-4.0cm)IVSd: 1.28 cm (0.6-1.1cm)LVPWd: 1.20 cm (0.6-1.1cm)LVIDd: 3.86 cm (3.9-5.9cm)LVIDs: 2.42 cmLV Mass Index: 118.5 g/m2LV % FS 37.3 %LA VOLUME: Normal Ranges:LA Vol A4C: 71.2 ml (22+/-6mL/m2)LA Vol A2C: 58.5 mlLA Vol BP: 67.3 mlLA Vol Index A4C: 46.3ml/m2LA Vol Index A2C: 38.0 ml/m2LA Vol Index BP: 43.8 ml/m2LA Area A4C: 22.2 cm2LA Area A2C: 19.3 cm2LA [place] A4C: 5.9 cmLA [place] A2C: 5.4 cmLA Volume Index: 40.5 ml/m2RA VOLUME BY A/L METHOD: Normal Ranges:RA Vol A4C: 17.8 ml (8.3-19.5ml)RA Vol Index A4C: 11.5 ml/m2RA Area A4C: 9.6 cm2RA [place] A4C: 4.4 cmM-MODE MEASUREMENTS: Normal Ranges:Ao Root: 2.10 cm (2.0-3.7cm)LAs: 3.50 cm (2.7-4.0cm)AORTA MEASUREMENTS: Normal Ranges:Asc Ao, d: 2.60 cm (2.1-3.4cm)Ao Arch: 2.60 cm (2.0-3.6cm)LV SYSTOLIC FUNCTION BY 2D PLANIMETRY (MOD): Normal Ranges:EF-A4C View: 66.7 % (>55%)EF-A2C View: 61.0 %EF-Biplane: 62.3 %LV DIASTOLIC FUNCTION: Normal Ranges:MV Peak E: 1.30 m/s (0.7-1.2 m/s)MV Peak A: 1.40 m/s (0.42-0.7 m/s)E/A Ratio: 0.93 (1.0-2.2)MV lateral e' 0.13 m/sMV medial e' 0.12 m/sMV A Dur: 148.00 msecPulmV Sys Tiffany: 81.60 cm/sPulmV Man Tiffany: 65.40 cm/sPulmV S/D Tiffany: 1.20PulmV A Revs Tiffany: 31.90 cm/sPulmV A Revs Dur: 120.00 msecMITRAL VALVE: Normal Ranges:MV DT: 208 msec (150-240msec)MITRAL INSUFFICIENCY: Normal Ranges:dP/dt: 606 mmHg/s (>1200mmHg/sec)AORTIC VALVE: Normal Ranges:AoV Vmax: 2.88 m/s (<1.7m/s)AoV Peak P.2 mmHg (<20mmHg)AoV Mean P.0 mmHg (1.7-11.5mmHg)LVOT Max Tiffany: 1.30 m/s (<1.1m/s)AoV VTI: 60.30 cm (18-25cm)LVOT VTI: 28.80 cmLVOT Diameter: 1.80 cm (1.8-2.4cm)AoV Area, VTI: 1.22 cm2 (2.5-5.5cm2)AoV Area,Vmax: 1.15 cm2 (2.5-4.5cm2)AoV Dimensionless Index: 0.48RIGHT VENTRICLE:RV 1 3.77 cmRV 2 3.58 cmRV 3 6.68 cmTAPSE: 18.6 mmRV s' 0.20 m/sTRICUSPID VALVE/RVSP: Normal Ranges:Peak TR Velocity: 3.45 m/sRV Syst Pressure: 52.6 mmHg (< 30mmHg)IVC Diam: 1.26 cmPULMONIC VALVE: Normal Ranges:PV Max Tiffany: 1.5 m/s (0.6-0.9m/s)PV Max P.8 mmHgPIEDV: 1.72 m/sPADP: 16.8 mmHgPulmonary Veins:PulmV A Revs Dur: 120.00 msecPulmV A Revs Tiffany: 31.90 cm/sPulmV Man Tiffany: 65.40 cm/sPulmV S/D Tiffany: 1.20PulmV Sys Tiffany: 81.60 cm/s Echocardiogram [Jul 08 2017 11:10AM] Assessment:1. Fall2. acute encephalopathy3. Rt BBB4. recent and recurrent colitis and SBO5. Hypertension6. h/o CAD - CABG - pt without ACS sxs., Neg. troponins x 3. Pt with no recollection of fallMental status has returned to baselineNeuro notes reviewed, no CVA.Previous records obtained and reviewed- Echocardiogram 2 months ago - resultsdiscussed with Dr. Llanes--- Pt with accelerated HTN 2 weeks ago, and medications changed, includingadded catapres patch.Telemetry reviewed, SROrthostatic vitals reviewed, remain positive RECs- no need for repeat echo. - agree with gentle hydration- discontinue catapres patch--- recommend treat UPRIGHT BP's only * * BP 138/6 Recumbant the down to 101/60 standing today.Cont. Imdur, Plavix, and resume PO t1qeigteo.Monitor Orthostatic vitals another 24 hrs.Continue telemetry Electronic Signatures:Ventura Thacker) (Signed 07-Sep-2017 21:58)Authored: Service, History of Present Illness, Review Family/Social Historyand ROS, Allergies, Objective, Assessment/Recommendations,S ignature/Cosignature/Attesta tion Last Updated: 07-Sep-2017 21:58 by Ventura Thacker) [facility] Daily Progress Note-Neurolog yon 09-07-2017 Protein mass conc Service: Neurology Subjective Data:KATHERINE JUDGE is a 82 year old Female who is Hospital Day # 2. Objective Data: Objective Information:T [id number]/669 2%Date/Time09/06 21: 18: 21: 18: 21:Range(36.7C - 37.4C ) (73 - 96 ) (16 - 18 ) (111 - 189 )/ (66 - 104 )(92% - 97% )Highest temp of 37.4 C was recorded at 09/06 12:45 Pain at Rest reported at 09/06 20:35: 3Ksbghjwwinn2/29 21:29 P [id number] / 64 (138 - 162 ) / (64 - 87 )[id number] / 71 (136 - 146 ) / (68 - 82 )[id number] / 61 (101 - 124 ) / (61 - 70 ) Physical Exam: Constitutional: Patient is alert and cooperative in no acute distress Medication: Medications: Continuous Medications ---- 1. Sodium Chloride 0.9% with Potassium CL 20 mEq Premix Fluid: 1000 mLIntraVenous Scheduled Medications ---- 1. Clopidogrel: 75 mg Oral Daily2. Isosorbide Mononitrate Extended Release: 60 mg Oral Daily3. Lidocaine 5% TransDermal: 1 patch TransDermal Every 24 Hours4. Metoprolol Injectable: 5 mg IntraVenous Push Every 6 Hours5. Potassium Chloride Powder Packet: 20 mEq Oral Daily PRN Medications ---- 1. Acetaminophen: 650 mg Oral Every 6 Hours Recent Lab Results: Results: I have reviewed these laboratory results: Basic Metabolic Panel 06-Sep-2017 05:45:00 ResultValueGlucose, Serum 110 HNA 139K 3.8CL 104Bicarbonate, Serum 27Anion Gap, Serum 12BUN 7CREAT 0.57GFR-Non >60GFR- >60Calcium, Serum 8.7 Vitamin B12, Serum 06-Sep-2017 05:45:00 ResultValueVitamin B12, Serum 770 Thyroid Stimulating Hormone, Serum 06-Sep-2017 05:45:00 ResultValueThyroid Stimulating Hormone, Serum 2.11 Vitamin D (25-Hydroxy), Level 06-Sep-2017 05:45:00 ResultValueVitamin D (25-Hydroxy), Level 19 A Ammonia, Plasma 06-Sep-2017 05:45:00 ResultValueAmmonia, Plasma 19 Folate, Serum 06-Sep-2017 05:45:00 ResultValueFolate, Serum > 24.0 Radiology Results: Results: Impression: MRI Brain: Punctate focus of diffusion restriction involving right temporalcortex may reflect a small focus of acute to subacute infarct versusa cortical contusion due to recent trauma. Evaluation for hemorrhagicproducts in this region is limited due to motion artifact on gradientecho imaging. Subtle foci of pinpoint diffusion signal abnormalities within theleft aspect of devan may reflect subacute tiny lacunar infarcts versusartifact. Nonspecific white matter changes involving bilateral cerebralhemispheres and brainstem, likely reflectingsequela of chronic smallvessel ischemic disease. Moderate diffuse cerebral volume loss. MRA: Motion limited exam limits evaluation of vascular detail. There is nomajor vessel cutoff on MRA head. Flow signal is identified withinmajorvessels on MRA neck. The study was interpreted at [facility]. MRA Neck without Contrast [Sep 06 2017 1:06PM] Impression: MRI Brain: Punctate focus of diffusion restriction involving right temporalcortex may reflect a small focus of acute to subacute infarct versusa cortical contusion due to recent trauma. Evaluation for hemorrhagicproducts in this region is limited due to motion artifact on gradientecho imaging. Subtle foci of pinpoint diffusion signal abnormalities within theleft aspect of devan may reflect subacute tiny lacunar infarcts versusartifact. Nonspecific white matter changes involving bilateral cerebralhemispheres and brainstem, likely reflectingsequela of chronic smallvessel ischemic disease. Moderate diffuse cerebral volume loss. MRA: Motion limited exam limits evaluation of vascular detail. There is nomajor vessel cutoff on MRA head. Flow signal is identified withinmajorvessels on MRA neck. The study was interpreted at [facility]. MRA Head without Contrast [Sep 06 2017 1:06PM] Impression: MRI Brain: Punctate focus of diffusion restriction involving right temporalcortex may reflect a small focus of acute to subacute infarct versusa cortical contusion due to recent trauma. Evaluation for hemorrhagicproducts in this region is limited due to motion artifact on gradientecho imaging. Subtle foci of pinpoint diffusion signal abnormalities within theleft aspect of devan may reflect subacute tiny lacunar infarcts versusartifact. Nonspecific white matter changes involving bilateral cerebralhemispheres and brainstem, likely reflectingsequela of chronic smallvessel ischemic disease. Moderate diffuse cerebral volume loss. MRA: Motion limited exam limits evaluation of vascular detail. There is nomajor vessel cutoff on MRA head. Flow signal is identified withinmajorvessels on MRA neck. The study was interpreted at [facility]. MRI Brain without Contrast [Sep 06 2017 1:06PM] Assessment and Plan:Assessment:Impression: This 82 year old woman appears back to her baseline after [facility]with [facility]. Its not clear why she fell, perhaps due to orthostatic hypotension.Her MRI of the brain shows possible a possible punctate ischemic contusion overthe right temporal lobe, less likely an ischemic lesion from a stroke. Giventheclinical context, its more likely that the right temporal lobe contusion is dueto head trauma, not stroke. I recommend optimizing her blood pressureparameters to prevent OH, and treat hervitamin D deficiency. The neurological results and status were discussed withthe patient, her family at the bedside, and Dr. Sepulveda, 25 minutes was spentwith them, >50% of the time was spent counseling and/or coordination of care.Will sign off. Electronic Signatures:Altagracia Nicolas) (Signed 06-Sep-2017 22:21)Authored: Service, Subjective Data, Objective Data, Assessment and Plan,Signature/Cosignature/A ttestation Last Updated: 06-Sep-2017 22:21 by Altagracia Nicolas) [facility] Discharge Nzaatgu5wj 07-30-2 018 Protein mass conc Discharge Orders:Ant icipated Discharge Date:? Anticipated Discharge [id number]? Anticipated Discharge Time11:00 Problem List: Additional Dx:? Hypokalemia: Catalog Name: Hypokalemia? Fall: Catalog Name: Unspecified fall, initial encounter? Leukocytosis: Catalog Name: Elevated white blood cell count, unspecified? Encephalopathy: Catalog Name: Encephalopathy, unspecified? Essential hypertension: Catalog Name: Essential (primary) hypertension? CAD (coronary artery disease): Catalog Name: Atherosclerotic heart diseaseof [place] coronary artery without angina pectoris? Hypercalcemia: Catalog Name: Hypercalcemia? Encephalopathy: Catalog Name: Encephalopathy, unspecified? Elevated serum creatinine: Catalog Name: Other specified abnormal findingsof blood chemistry? Cecal volvulus: Catalog Name: Volvulus? Severe protein-calorie malnutrition (Carrera: less than 60% of standardweight): Catalog Name: Unspecified severe protein-calorie malnutrition? Confusion and disorientation: Catalog Name: Mental disorder, not otherwisespecified? Clostridium difficile colitis: Catalog Name: Enterocolitis due toClostridium difficile, not specified as recurrent? Hypomagnesemia: Catalog Name: Hypomagnesemia? 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 Acute on chronic diastolic (congestive) heart failure: Catalog Name: Acuteon chronic diastolic (congestive) heart failure? Hypokalemia: Catalog Name: Hypokalemia? Pulmonary edema: Catalog Name: Chronic pulmonary edema? Tachypnea: Catalog Name: Tachypnea, not elsewhere classified? S/P right hemicolectomy: Catalog Name: Acquired absence of other specifiedparts of digestive tract? Small bowel obstruction: Catalog Name: Unspecified intestinal obstruction,unspecified as to partial versus complete obstruction? NSTEMI (non-ST elevated myocardial infarction): Catalog Name: Non-STelevation (NSTEMI) myocardial infarction? UTI (urinary tract infection), bacterial: Catalog Name: Urinary tractinfection, site not specified? Anemia: Catalog Name: Anemia, unspecified? Lactic acidosis: Catalog Name: Acidosis? Leukocytosis, unspecified type: Catalog Name: Elevated white blood cellcount, unspecified? Hypotension (arterial): Catalog Name: Hypotension, unspecified? Pneumonia of right lower lobe due to infectious organism: Catalog Name:Lobar pneumonia, unspecified organism? Acute encephalopathy: Catalog Name: Delirium Medical History:? Failure to thrive: Catalog Name: Failure to thrive (child)? 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 Constipation: Catalog Name: Constipation? Ileus: Catalog Name: Ileus? Exploratory laparotomy: Catalog Name: Exploratory laparotomy? Anemia due to unknown or multiple mechanisms (disorder): Catalog Name:Anemia due to unknown or multiple mechanisms? Transient ischemic colitis (disorder): Catalog Name: Transient ischemiccolitis? Protein malnutrition unspecified (disorder): Catalog Name: Proteinmalnutrition unspecified? Hypokalemia (disorder): Catalog Name: Hypokalemia? Magnesium deficiency: Catalog Name: Magnesium deficiency? Colitis (disorder): Catalog Name: Colitis? Small bowel obstruction (disorder): Catalog Name: Small bowel obstruction? Acute bowel obstruction: Onset Date: 11-Feb-2012, Catalog Name: Acute bowelobstruction? Generalized abdominal pain (finding): Catalog Name: Generalized abdominalpain Prelim Disch Dx:? Small bowel obstruction: Catalog Name: Unspecified intestinal obstruction,unspecified as to partial versus complete obstruction? TIA (transient ischemic attack): Catalog Name: Transient ischemic attack(disorder)? TIA (transient ischemic attack): Catalog Name: Transient ischemic attack(disorder)? Patient post percutaneous transluminal coronary angioplasty (finding):Catalog Name: Patient post percutaneous transluminal coronary angioplasty? Coronary artery disease: Catalog Name: Coronary artery disease? Congestive heart failure: Catalog Name: Congestive heart failure (disorder)? Small bowel obstruction NOS (disorder): Catalog Name: Small bowelobstruction NOS? Patient post percutaneous transluminal coronary angioplasty: Catalog Name:Patient post percutaneous transluminal coronary angioplasty? Dyspnea on exertion: Catalog Name: Dyspnea on exertion? Coronary arteriosclerosis: Catalog Name: Coronary arteriosclerosis? Central chest pain: Catalog Name: Central chest pain? Chronic anemia: Catalog Name: Chronic anemia Chronic:? Fluid overload pulmonary edema: Catalog Name: Fluid overload pulmonary edema(disorder)? Clostridium difficile infection: Catalog Name: Clostridium difficileinfection (disorder)? Chest pain: Catalog Name: Chest pain? Diarrhea: Catalog Name: Diarrhea Other Dx/Proc:? CHEST PAIN: Catalog Name: CHEST PAIN, Description: CHEST PAIN? Unstable angina/chest pain: Catalog Name: Unstable angina/chest pain,Description: Unstable angina/chest pain? Gastrointestinal bleeding: Catalog Name: Gastrointestinal bleeding,Description: Gastrointestinal bleeding? 1 Colitis, 2 Abdomen Pain 3 Cholelithiasis: Onset Date: 03-Apr-2012? Heart failure: Catalog Name: Heart failure, Description: Heart failure? PNEUMONIA: Catalog Name: PNEUMONIA? Diabetes mellitus: Catalog Name: Diabetes mellitus, Description: Diabetesmellitus? Abdominal pain: Catalog Name: Abdominal pain, Description: Abdominal pain? Electrolyte imbalance: Catalog Name: Electrolyte imbalance, Description:Electrolyte imbalance? Post CABG: Catalog Name: Post CABG, Description: Post CABG? Coronary artery disease: Catalog Name: Coronary artery disease, Description:Coronary artery disease? Non ST Elevation Myocardial Infarction (NSTEMI): Catalog Name: Non STElevation Myocardial Infarction (NSTEMI), Description: Non ST ElevationMyocardial Infarction (NSTEMI)? Coronary angioplasty/stent (PCI): Catalog Name: Coronary angioplasty/stent(PCI), Description: Coronary angioplasty/stent (PCI)? Dyspnea: Catalog Name: Dyspnea, Description: Dyspnea? Coronary atherosclerosis: Catalog Name: Coronary atherosclerosis,Description: Coronary atherosclerosis? Left heart catheterization: Catalog Name: Left heart catheterization,Description: Left heart catheterization? Hypotension: Catalog Name: Hypotension? Sepsis: Catalog Name: Sepsis, Description: Sepsis? Venous thromboembolism: Catalog Name: Venous thromboembolism, Description:Venous thromboembolism Significant Events:colitis: Past Medical Historycataract: Past Surgical History, bilateral with lens implantbilat knee replacement: Past Surgical Historymitral valve regurgitation: Past Medical Historygi bleed: Past Medical HistoryHypertension (HTN): Past Medical Historyarthritis: Past Medical Historyherniated disc lumbar area: Past Medical Historyhypercholesterolemia: Past Medical Historypost shingles neuropathy: Past Medical Historydepression: Past Medical Historyanxiety: Past Medical Historyosteoporosis: Past Medical Historydiverticulitis: Past Medical Historycomplete hysterectomy: Past Surgical History, 26 years agoappendectomy: Past Surgical History, 26 years agoCardiac Catheterization: Past Surgical History.Influenza- Influenza Virus: Immunizations, 11-Dec-2009.Pneumonia- Pneumococcal polysaccharide vaccine-adult: Immunizationsumbilical hernia: Past Medical HistoryUTI: Past Medical HistoryGERD: Past Medical HistoryCABG (2 vessel): Past Surgical History, [id number]: Past Medical HistoryNon ST elevation NE: Past Medical History, [id number] atherosclerosis: Past Medical HistorySepsis: Past Medical HistoryVenous thromboembolism: Past Medical HistoryChronic anemia: Past Medical HistoryNarcotic Use: OtherClostridium difficile toxin (C-Diff): Infection Control, 27-Aug-2012, [facility] ( [facility])Congestive Heart Failure (CHF): Past Medical HistoryMethicillin-Resistant Staph Aureus (MRSA): Infection Control, Mar 2012, sputumFamily spokesperson: Other, CARLOS [phone] BROTHERPAUL VELOZ [phone] Information: Contacts, son Ganga [phone] difficile toxin (C-Diff): Infection Control, 08-Jul-2017 Hospital Providers:Provider RoleProvider Name? Magui Love? Brionna Galindo? Benjy Pruitt Activity:activity as tolerated. May shower. Hospital Course (Home Care/Gold Form):Hospital Course:? Hospital Course: include significant abnormal lab [id number] female with a past medical history of failure to thrive,gastrocutaneous fistula, constipation, ileus, small bowel obstruction,transient ischemic colitis, anemia, protein calorie malnutrition, hypokalemia,hypomagnesemia and colitis was admitted from the [facility] emergency room due toaltered mental status. Acute encephalopathy-clearedMRI shows multiple puntate lesion and cortical contusionseen by neurologyneurology fells secondary to trauma from fall not embolic Status post unwitnessed fall-Periorbital contusion-EKG showed normal sinus rhythm with RBBB and some ST changes in the inferiorleads.-We will check orthostatic blood pressure; not orthostatic Mild leukocytosis-May be due to stress-No evidence for UTI-We will monitor Hypokalemia-We will repeat labs DVT rzwuclxeavl-Olxvhbo-ll light of cortical contusion and possible punctate lesions which maybe secondary to injury will d/c CODE STATUS: DO NOT RESUSCITATE [facility] records. Patient is back to baseline neurologicallywill continue to monitor Patient had significant encephalopathic changes which resolved spontaneouslywithin 24 hrs. Suspect multifactorial: trauma from fall;probable concussion andMRI showing cortical contusionStable and back to baseline. Provider FINAL REVIEW of Orders:Final Review:? Final Review of Medication Reconciliation and Orders Completedby Physician? Reviewing ProviderBrionna Llanes MD at 07-Sep-2017 20:40:06 Appointments:Follow-Up Appointment 01:? Physician/Dept/ServiceDr. Hugo Primary Care Physician ? Reason for Referralpost hospitalization ? Scheduled Date/[id number] 11:00? [address] [place] [address]? Phone [phone]? CommentsPlease arrive 10-15 minutes early, bring photo ID, insurance cards,discharge summary, and a list of current medications. Please call the officeif you need to change this appointment. Follow-Up Appointment 02:? Physician/Dept/ServiceDr. Altagracia Nicolas Neurology ? Reason for Referralpost hospitalization ? Scheduled Date/[id number] 11:00? [id number] [place] [address]? Phone [phone]? CommentsPlease arrive 10-15 minutes early, bring photo ID, insurance cards,discharge summary, and a list of current medications. Please call the officeif you need to change this appointment. Gold Form - Nursing Summary:Special Treatments/Procedures (in past 14 days):? Chemotherapyno? Dialysisno? IV Medicationno? Oxygen Therapyno? Transfusionsno? Feverno? Radiationno? Ventilatorno? Tracheostomyno? Suctioningno Nutrition:? Nutritional Statusfeeds self Sensory/Comfort:? Visionadequate? Hearingadequate? Speechclear? Painno Elimination:? Bladdercontinent? Bowelcontinent? Last Bowel [id number]? Toiletingtoilet Safety:? Siderailsno? Restraintsno? Sitterno? Fall Riskprevious falls, weakness Medication/Hygiene/Mobility: ? Medication Administrationassist? Bathingassist? Dressingassist? Bed Mobilityassist? Wheelchairassist? Transfersassist? Ambulationassist Electronic Signatures:Elida Calderón (RN) (Signed 08-Sep-2017 09:01)Authored: Gold Form - Nursing SummaryBrionna Llanes) (Signed 07-Sep-2017 20:40)Authored: Discharge Orders, Hospital Course (Home Care/Gold Form), ProviderFINAL REVIEW of Orders, Appointments, Gold Form - [employer] Floorperson SummaryBrionna Hill (PT ACC REP) (Signed 08-Sep-2017 09:49)Authored: Appointments Last Updated: 08-Sep-2017 09:49 by Brionna Hill (PT ACC REP) [facility] Nutrition Therapy-Assessment on 09-07-2017 Nutrition Therapy-Assessment Assessment Subjective/Objective:Note Type: Assessment Note Authored by: Registered Dietitian NutritionistPager Number: [phone] Nutrition Note:The patient is a 82 year old Female admitted for altered mental status. Per chart review, with encephalopathy- resolved and s/p fall; pt is back tobaseline neurologically. RE: Nutrition ConsultPt states that she hasn't been eating very well. Pt is familiar to me fromrecent admission. Pt did not like the Boost pudding she tried last time anddoesn't like the drinks either. Pt agreeable to the magic cups to try. Pt alsoagreeable to afternoon snack as well. Pt is unsure of any weight changes atthis time. No issues with chewing/ swallowing and no nausea/ vomiting. Pt'sappetite has been poor since bowel surgery earlier this year. Additional Dx:Hypokalemia:Fall:Leukocyt osis:Encephalopathy:Essentia l hypertension:CAD (coronary artery disease):Hypercalcemia:Encep halopathy:Elevated serum creatinine:Cecal volvulus:Severe protein-calorie malnutrition (Carrera: less than 60% of standard weight): Confusion and disorientation:Clostridium difficile colitis:Hypomagnesemia:Hyper tensive heart disease with systolic congestive heart failure:Acute on chronic diastolic (congestive) heart failure:Hypokalemia:Pulmonar y edema:Tachypnea:S/P right hemicolectomy:Small bowel obstruction:NSTEMI (non-ST elevated myocardial infarction):UTI (urinary tract infection), bacterial:Anemia:Lactic acidosis:Leukocytosis, unspecified type:Hypotension (arterial):Pneumonia of right lower lobe due to infectious organism:Acute encephalopathy: Medical History: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:Constipation:Ileus:E xploratory laparotomy:Anemia due to unknown or multiple mechanisms (disorder):Transient ischemic colitis (disorder):Protein malnutrition unspecified (disorder):Hypokalemia (disorder):Magnesium deficiency:Colitis (disorder):Small bowel obstruction (disorder):Acute bowel obstruction: Onset Date: 22-Rmv-7746Cbprmbbaexp abdominal pain (finding): Chronic:Fluid overload pulmonary edema:Clostridium difficile infection:Chest pain:Diarrhea: Other Dx/Proc:CHEST PAIN: Description: CHEST PAINUnstable angina/chest pain: Description: Unstable angina/chest painGastrointestinal bleeding: Description: Gastrointestinal bleeding1 Colitis, 2 Abdomen Pain 3 Cholelithiasis: Onset Date: 90-Kbr-5099Lfenn failure: Description: Heart failurePNEUMONIA:Diabetes mellitus: Description: Diabetes mellitusAbdominal pain: Description: Abdominal painElectrolyte imbalance: Description: Electrolyte imbalancePost CABG: Description: Post CABGCoronary artery disease: Description: Coronary artery diseaseNon ST Elevation Myocardial Infarction (NSTEMI): Description: Non ST ElevationMyocardial Infarction (NSTEMI)Coronary angioplasty/stent (PCI): Description: Coronary angioplasty/stent(PCI)Dyspne a: Description: DyspneaCoronary atherosclerosis: Description: Coronary atherosclerosisLeft heart catheterization: Description: Left heart catheterizationHypotension:S epsis: Description: SepsisVenous thromboembolism: Description: Venous thromboembolism Medical History: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:Constipation:Ileus:E xploratory laparotomy:Anemia due to unknown or multiple mechanisms (disorder):Transient ischemic colitis (disorder):Protein malnutrition unspecified (disorder):Hypokalemia (disorder):Magnesium deficiency:Colitis (disorder):Small bowel obstruction (disorder):Acute bowel obstruction: Onset Date: 39-Noh-4237Qgonltscyuv abdominal pain (finding):Acute bowel obstruction:Acute bowel obstruction: Objective Information: T [id number]/799 7%Date/Time09/07 10: 10: 10: 10: 10:58Range(36.5C - 37.4C ) (82 - 99 ) (16 - 19 ) (111 - 171 )/ (66 - 80 ) (92%- 98% )Highest temp of 37.4 C was recorded at 09/06 12:45 Pain at Rest reported at 09/07 9:30: 0 ---- Intake and Output -----Mn/Dy/Year TimeIntakeOutputNetJul 2017 10:00 [id number] 2017 2:00 [id number] The Intake and Output Totals for the last 24 hours are:FjjserQsbryfJfl6033gopsm ull Intake Output Enteral - Oral 600 mL IV Fluids 600 mL Height/Weight:Height in feet: 5 feetHeight in inches: 0 inch(es)Height in cm: 152.4 centimeter(s)Weight (kg): 43.8BMI (kg/m2): 18.858 square meterDBW (kg): 45%DBW: 97Weight history/ % weight change: 08/31/17 -- 40.6kg06/18/17 -- 45.9kg, 4.5% weight loss in 3 months; noted but not signfiican03/20/17 -- 46.8kg -- 6.4% weight loss in 6 months; not ijduyhdkagy01/13/17 -- 45.9kg07/30/16 -- 49kg -- 10.6% weight loss in 1 yr- not significantSignificant Weight Change: no Recent Lab Results: Results: I have reviewed these laboratory results: Basic Metabolic Panel 06-Sep-2017 05:45:00 ResultValueGlucose, Serum 110 HNA 139K 3.8CL 104Bicarbonate, Serum 27Anion Gap, Serum 12BUN 7CREAT 0.57GFR-Non >60GFR- >60Calcium, Serum 8.7 Vitamin B12, Serum 06-Sep-2017 05:45:00 ResultValueVitamin B12, Serum 770 Thyroid Stimulating Hormone, Serum 06-Sep-2017 05:45:00 ResultValueThyroid Stimulating Hormone, Serum 2.11 Vitamin D (25-Hydroxy), Level 06-Sep-2017 05:45:00 ResultValueVitamin D (25-Hydroxy), Level 19 A Ammonia, Plasma 06-Sep-2017 05:45:00 ResultValueAmmonia, Plasma 19 Folate, Serum 06-Sep-2017 05:45:00 ResultValueFolate, Serum > 24.0 Nutrition Labs:Special Chemistry: 03-Jul-2017 10:15, Hemoglobin N6CAsghgkkvkc A1C, Level5.3 Diagnosis of Diabetes-Adults Non-Diabetic: < or = 5.6% Increased risk for developing diabetes: 5.7-6.4% Diagnostic of diabetes: > or = 6.5%. Monitoring of Diabetes Age (y) Therapeutic Goal (%) Adults: >18 <7.0 Pediatrics: 13-18 <7.5 7-12 <8.0 0- 6 7.5-8.5 [place] [employer]. Diabetes Care 33(S1), Feb 2009.Estimated Average Bbrsxwa569Aeovssabzkhmu: 06-Sep-2017 05:45, Vitamin D (25-Hydroxy), LevelVitamin D (25-Hydroxy), Level19.DEFICIENCY: < 20 NG/MLINSUFFICIENCY: 20-29 NG/MLOPTIMUM LEVEL: 30-80 NG/MLPOSSIBLE TOXICITY: > 80 NG/MLTHIS ASSAY ACCURATELY QUANTIFIES THE SUM OFVITAMIN D3, 25-HYDROXY AND VIT D2,25-HYDROXY. Current Active Medications/PN:Isosorbide Mononitrate Extended Release, Tablet, Extended Release (IMDUR)DOSE = 60 mg Oral Daily, 90-Kcc-7726Xpcuvkgul Chloride Powder Packet, (K-SHAUN)DOSE = 20 mEq Oral DailyNotes from Pharmacy: Substitution for Potassium Chloride Oral Liquid 20 mEqDaily, 25-Ibn-2064Xkegzdixyf Injectable, (LOPRESSOR)DOSE = 5 mg IntraVenous Push Every 6 HoursClinician Notes: hold for SBP<105 or HR<60, 15-Hww-2375Uuldsfefz 5% TransDermal, Film (LIDODERM)DOSE = 1 patch TransDermal Every 24 HoursClinician Notes: to back, 77-But-7376Tshzfznpojjrd, Tablet (TYLENOL)DOSE = 650 mg Oral Every 6 Hours, PRN Pain - Mild (1-3), 86-Jop-9291Kthanxxzyhe, Tablet (PLAVIX)DOSE = 75 mg Oral Daily, 37-Xyq-0385Jxsqiztfyziqsek (Vitamin D3), TabletDOSE = 1,000 International Unit(s Oral Daily, 59-Jvq-9703Fmujub Chloride 0.9% with Potassium CL 20 mEq Premix Fluid, IV Bag Volume =1,000 mL Run at: 75 mL/hr IntraVenous , 06-Sep-2017 Nutrition Orders:Diet May Not Participate in Room Service, NoOrder entered from Admission Screens., 02-Wmg-8077Asth, RegularTexture: Soft, 27-Ntb-1775Akcx Nutritional Supplements, RoutineMagic CupFlavor Preference: [place]; [place], 2 Times a DaySpecial Instructions: Please send supplement with lunch and dinner, thankyou!Please send pt an afternoon snack of fruit and cheese please - in addition toher 3 meals - do not substitute this for a meal. Thank you!, 07-Sep-2017 Food/Nutrition Related History:Change in Oral Intake/Appetite: decreaseGI Symptoms: anorexiaTime Frame for GI Symptoms Greater Than 2 Weeks: yesOral Problems: denies Nutrition Focused Physical Findings:Muscle Wasting:Temporal: yesShoulder: yesClavicle: yesScapula/Back: deferBiceps/Triceps: yesInterosseous: yesQuadriceps: yesCalf: yes Loss of Subcutaneous Fat:Eyes: yesPerioral: yesTriceps: yesChest: yes Other Physical Findings:Hair: negativeEyes: negativeMouth: negativeNails: negativeSkin: IntactEdema: noneChange in Metabolic Demand: noSubjective Global Assessment Rating: severe malnutritionEtiology: chronic illness Estimated Needs:kcals/day: 1320-1540gms protein/day: 66mL fluid/day: ~1500 or per MD Nutrition Diagnosis:Diagnosis1 new. Dx: Severe protein calorie malnutrition. related to inadequateoral intake as evidenced by pt with severe muscle/ fat depletion, inadequateoral intake, unintended weight loss (4.5% in 3 months), and failure to thrive. Additional Assessment Information: Estimated needs based on CBW: 43.8kg. Nutrition Interventions:Individualized Nutrition Prescription Provided for: diet, fluidsDiet Education: not applicableOrdered Supplements: Magic Cup, BID (580 kcal, 18 g protein)Ordered Snacks: Afternoon Snack- fruit and cheese Nutrition Goals:Goals: Nutrition Therapy: oral intake greater than 50%, consume prescribedsupplement, adequate po fluid intake, lab values within normal limits,electrolytes within normal limits, maintain stable weight Outcomes Summary: Nutrition TherapyOutcome Summary: Nutritional Therapy: Severe Protein Calorie Malnutrition Nutrition Therapy Recommendations:Nutrition Therapy Recommendations: 1. Regular Diet2. Supplements and snack ordered3. If appetite remains suboptimal, may need to consider appetite stimulant.4. Replete Vitamin D; 50,000 International Unit(s) weekly x 4-6 weeks thenrecheck Dietitian Monitoring and Evaluation Plan:Monitoring and Evaluation Plan: po intake and tolerance, fluid intake/adequacy,vitamin/mine ral intake, weight trend, mealtime behavior, labs Electronic Signatures:Mikie May (DEEPA HENRIQUEZ) (Signed 07-Sep-2017 12:59)Authored: Assessment Subjective/Objective, Nutrition Focused PhysicalFindings, Estimated Needs, Nutrition Diagnosis, Nutrition Interventions,Nutrition Goals, Nutrition Recommendations, Dietitian Monitoring and EvaluationPlan Last Updated: 07-Sep-2017 12:59 by Mikie May (DEEPA HENRIQUEZ) [facility] AMMONIAon 09-06-2017 Ammonia mass conc (P) 19 umol/L [facility] Comment on above: Result Comment: .REF ERENCE VALUESDAY 1 to DAY 7 <110DAY 8 to DAY 14 < 90DAY 15 to ADULT 16-53 Performed By: #### A MM ####[address] [address] BASIC METABOLIC PANELon - Anion gap 3 molar conc 12 mmol/L Normal 10 - 20 [facility] Comment on above: Performed By: #### B MP ####[address] [address] Calcium mass conc 8.7 mg/dL Normal 8.6 - 10.3 [facility] Comment on above: Performed By: #### B MP ####[facility] [id number] [place] [address] Chloride molar conc 104 mmol/L Normal 98 - 107 [facility] Comment on above: Performed By: #### B MP ####[facility] [id number] [place] [address] Creatinine mass conc 0.57 mg/dL Normal 0.50 - 1.05 [facility] Comment on above: Performed By: #### B MP ####[facility] [id number] [place] [address] GFR- AM. >60 Normal >60 [facility] Comment on above: Result Comment: CALC ULATIONS OF ESTIMATED GFR ARE PERFORMED USING THE MDRD STUDY EQUATION FOR THE IDMS-TRACEABLE CREATININE METHODS. CLIN CHEM 2007;53:766-72 Performed By: #### B MP ####[facility] [id number] [place] [address] GFR-NON AM. >60 Normal >60 [facility] Comment on above: Performed By: #### B MP ####[facility] [id number] [place] [address] Glucose mass conc 110 mg/dL High 74 - 99 [facility] Comment on above: Performed By: #### B MP ####[facility] [id number] [place] [address] HCO3 molar conc (Bld) 27 mmol/L Normal 21 - 32 [facility] Comment on above: Performed By: #### B MP ####[facility] [id number] [place] [address] Potassium molar conc 3.8 mmol/L Normal 3.5 - 5.3 [facility] Comment on above: Performed By: #### B MP ####[facility] [id number] [place] [address] Sodium molar conc 139 mmol/L Normal 136 - 145 [facility] Comment on above: Performed By: #### B MP ####[facility] [id number] [place] [address] Urea nitrogen mass conc 7 mg/dL Normal 6 - 23 [facility] Comment on above: Performed By: #### B MP ####[facility] [id number] [place] [address] Daily Progress Note-Medicine on 09-06-2017 Protein mass conc Service: Medicine Rick bjective Data:KATHERINE JUDGE is a 82 year old Female who is Hospital Day # 2. Patient is back to baseline neurologically. Objective Data: Objective Information:T [id number]/669 4%Date/Time09/06 12: 12: 12: 12: 12:57Range(36.7C - 37.4C ) (73 - 110 ) (18 - 18 ) (111 - 189 )/ (66 - 104 )(94% - 97% )Highest temp of 37.4 C was recorded at 09/06 12:45 Pain at Rest reported at 09/06 9:35: 3 Physical Exam: Constitutional: Malnourished female, awake but confused. Not in distress.Eyes: EOMI, clear sclera, no photophobiaENMT: mucous membranes very dry.Head/Neck: Neck supple, small laceration around the eye on the left side of theface. Patient also has some bruises on the left side of the face. She hassignificant bruises in the left hip area as well as bilateral knee area.Respiratory/Thorax: Patent airways, CTAB, normal breath sounds with good chestexpansion, thorax symmetricCardiovascular: Regular, rate and rhythm, 2+ equal pulses of the extremities,normal S 1and S 2Gastrointestinal: Nondistended, soft, non-tender, no rebound tenderness orguarding, +BS, no bruitsGenitourinary: deferMusculoskeletal: ROM intactExtremities: no cyanosis, no edemaNeurological: alert and oriented x3, intact senses, motor, response andreflexes, normal strengthBreast: deferPsychological: ConfusedSkin: Warm and dry Medication: Medications: CARDIOVASCULAR AGENTS: 1. Isosorbide Mononitrate Extended Release: 60 mg Oral Daily2. Metoprolol Injectable: 5 mg IntraVenous Push Every 6 Hours CENTRAL NERVOUS SYSTEM AGENTS: 1. Acetaminophen: 650 mg Oral Every 6 Hours PRN COAGULATION MODIFIERS: 1. Enoxaparin SubCutaneous: 40 mg SubCutaneous Every 24 Hours2. Clopidogrel: 75 mg Oral Daily NUTRITIONAL PRODUCTS: 1. Sodium Chloride 0.9% with Potassium CL 20 mEq Premix Fluid: 1000 mLIntraVenous 2. Potassium Chloride Powder Packet: 20 mEq Oral Daily TOPICAL AGENTS: 1. Lidocaine 5% TransDermal: 1 patch TransDermal Every 24 Hours Recent Lab Results: Results:I have reviewed these laboratory results: Lactate, Level 05-Sep-2017 01:49:00 ResultValueLactate, Level 1.0 Troponin I, Serum 05-Sep-2017 01:49:00 ResultValueTroponin I, Serum 0.02 Urinalysis 05-Sep-2017 01:37:00 ResultValueColor, Urine STRAW Reference Range: STRAW,YELLOWAppearance, Urine CLEARSpecific Max, Urine 1.005pH, Urine 6.0Protein, Urine NEGATIVEGlucose, Urine NEGATIVEBlood, Urine NEGATIVEKetones, Urine NEGATIVEBilirubin, Urine NEGATIVEUrobilinogen, Urine <2.0Nitrite, Urine NEGATIVELeukocyte Esterase, Urine NEGATIVE Complete Blood Count + Differential 05-Sep-2017 01:36:00 ResultValueWhite Blood Cell Count 11.8 HRed Blood Cell Count 2.56 LHGB 8.4 LHCT 25.6 LMCV 100MCHC 32.8PLT 422RDW-CV 15.3 HNeutrophil % 70.6Immature Granulocytes % 0.5Lymphocyte % 21.6Monocyte % 5.9Eosinophil % 1.1Basophil % 0.3Neutrophil Count 8.31 HLymphocyte Count 2.55Monocyte Count 0.70Eosinophil Count 0.13Basophil Count 0.04 Comprehensive Metabolic Panel 05-Sep-2017 01:36:00 ResultValueGlucose, Serum 94NA 138K 3.4 LCL 99Bicarbonate, Serum 28Anion Gap, Serum 14BUN 16CREAT 0.99GFR-Non 54 AGFR- 65Calcium, Serum 9.2ALB 3.3 LALKP 95T Pro 6.9T Bili 0.4Alanine Aminotransferase, Serum 16Aspartate Transaminase, Serum 19 PT + INR, Plasma 05-Sep-2017 01:36:00 ResultValueProthrombin Time, Plasma 11.5International Normalized Ratio, Plasma 1.1 RBC Morphology 05-Sep-2017 01:36:00 ResultValueRed Blood Cell Morphology See BelowHypochromasia Mild I have reviewed these laboratory results: Basic Metabolic Panel 06-Sep-2017 05:45:00 ResultValueGlucose, Serum 110 HNA 139K 3.8CL 104Bicarbonate, Serum 27Anion Gap, Serum 12BUN 7CREAT 0.57GFR-Non >60GFR- >60Calcium, Serum 8.7 Thyroid Stimulating Hormone, Serum 06-Sep-2017 05:45:00 ResultValueThyroid Stimulating Hormone, Serum 2.11 Ammonia, Plasma 06-Sep-2017 05:45:00 ResultValueAmmonia, Plasma 19 Radiology Results: Results: Impression: No acute cardiopulmonary process.Large hiatal hernia. Xray Chest 1 View [Sep 05 2017 2:53AM] Impression: No acute intracranial abnormality. Parenchymal atrophy and chronic small vessel ischemic changes. CT Head without Contrast [Sep 05 2017 2:52AM] Assessment and Plan: Additional Dx:Hypokalemia: Entered Date: 05-Sep-2017 07:52Fall: Entered Date: 05-Sep-2017 07:52Leukocytosis: Entered Date: 05-Sep-2017 07:52Encephalopathy: Entered Date: 05-Sep-2017 06:39Essential hypertension: Entered Date: 26-Aug-2017 09:59CAD (coronary artery disease): Entered Date: 26-Aug-2017 09:59Hypercalcemia: Entered Date: 27-Jul-2017 07:35Encephalopathy: Entered Date: 26-Jul-2017 15:54Elevated serum creatinine: Entered Date: 16-Jul-2017 07:24Cecal volvulus: Entered Date: 16-Jul-2017 07:22Severe protein-calorie malnutrition (Carrera: less than 60% of standard weight):Entered Date: 12-Jul-2017 07:46Confusion and disorientation: Entered Date: 12-Jul-2017 07:43Clostridium difficile colitis: Entered Date: 10-Jul-2017 12:52Hypomagnesemia: Entered Date: 09-Jul-2017 14: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: EnteredDate: 09-Jul-2017 09:28Acute on chronic diastolic (congestive) heart failure: Entered Date:09-Jul-2017 09:28Hypokalemia: Entered Date: 08-Jul-2017 12:37Pulmonary edema: Entered Date: 06-Jul-2017 07:40Tachypnea: Entered Date: 06-Jul-2017 07:40S/P right hemicolectomy: Entered Date: 03-Jul-2017 00:33Small bowel obstruction: Entered Date: 02-Jul-2017 20:32NSTEMI (non-ST elevated myocardial infarction): Entered Date: 34-Bsq-022740:25UTI (urinary tract infection), bacterial: Entered Date: 27-Dec-2016 20:58Anemia: Entered Date: 26-Dec-2016 19:03Lactic acidosis: Entered Date: 26-Dec-2016 19:03Leukocytosis, unspecified type: Entered Date: 26-Dec-2016 19:02Hypotension (arterial): Entered Date: 26-Dec-2016 19:02Pneumonia of right lower lobe due to infectious organism: Entered Date:26-Dec-2016 19:02Acute encephalopathy: Entered Date: 15-Jun-2014 11:11 Medical History:Failure to thrive: Entered Date: 28-Jul-2017 20:32Gastrocutaneous fistula: Entered Date: 05-Apr-2012 07:05Constipation: Entered Date: 04-Apr-2012 07:07Ileus: Entered Date: 14-Mar-2012 08:35Exploratory laparotomy: Entered Date: 09-Mar-2012 13:08Anemia due to unknown or multiple mechanisms (disorder): Entered Date:08-Mar-2012 06:47Transient ischemic colitis (disorder): Entered Date: 07-Mar-2012 07:55Protein malnutrition unspecified (disorder): Entered Date: 18-Feb-2012 07:07Hypokalemia (disorder): Entered Date: 15-Feb-2012 08:22Magnesium deficiency: Entered Date: 15-Feb-2012 08:22Colitis (disorder): Entered Date: 12-Feb-2012 06:59Small bowel obstruction (disorder): Entered Date: 11-Feb-2012 19:00Acute bowel obstruction: Onset Date: 11-Feb-2012, Entered Date: 14-Wub-636102:56Generalized abdominal pain (finding): Entered Date: 11-Feb-2012 18:56 Chronic:Fluid overload pulmonary edema: Entered Date: 29-Aug-2012 07:41Clostridium difficile infection: Entered Date: 28-Aug-2012 07:25Chest pain: Entered Date: 28-Aug-2012 07:24Diarrhea: Entered Date: 25-Aug-2012 20:22 Other Dx/Proc:CHEST PAIN: Entered Date: 01-Sep-2012 08:07Unstable angina/chest pain: Entered Date: 28-Aug-2012 07:28Gastrointestinal bleeding: Entered Date: 25-Aug-2012 13:511 Colitis, 2 Abdomen Pain 3 Cholelithiasis: Onset Date: 03-Apr-2012, EnteredDate: 03-Apr-2012 01:45Heart failure: Entered Date: 12-Mar-2012 08:44PNEUMONIA: Entered Date: 11-Mar-2012 20:33Diabetes mellitus: Entered Date: 31-Dec-2011 14:04Abdominal pain: Entered Date: 28-Dec-2011 20:11Electrolyte imbalance: Entered Date: 25-Dec-2009 11:50Post CABG: Entered Date: 25-Dec-2009 11:50Coronary artery disease: Entered Date: 14-Dec-2009 11:48Non ST Elevation Myocardial Infarction (NSTEMI): Entered Date: 25-Xwt-842795:29Coronary angioplasty/stent (PCI): Entered Date: 12-Dec-2009 15:30Dyspnea: Entered Date: 12-Dec-2009 12:38Coronary atherosclerosis: Entered Date: 12-Dec-2009 12:38Left heart catheterization: Entered Date: 12-Dec-2009 12:36Hypotension: Entered Date: 09-Sep-2009 15:03Sepsis: Entered Date: 01-Aug-2009 02:21Venous thromboembolism: Entered Date: 31-Jul-2009 14:57 Assessment:82-year-old female with a past medical history of failure to thrive,gastrocutaneous fistula, constipation, ileus, small bowel obstruction,transient ischemic colitis, anemia, protein calorie malnutrition, hypokalemia,hypomagnesemia and colitis was admitted from the [facility] emergency room due toaltered mental status. Acute encephalopathy-clearedMRI shows multiple puntate lesion and cortical contusionseen by neurology? embolic strokes vs injury from falls Status post unwitnessed fall-Periorbital contusion-EKG showed normal sinus rhythm with RBBB and some ST changes in the inferiorleads.-We will check orthostatic blood pressure-We will repeat EKG and check troponin.-We will monitor Mild leukocytosis-May be due to stress-No evidence for UTI-We will monitor Hypokalemia-We will repeat labs DVT uyxkppqsuug-Zonfksy-gb light of cortical contusion and possible punctate lesions which maybe secondary to injury will d/c CODE STATUS: DO NOT RESUSCITATE [facility] records. Patient is back to baseline neurologicallywill continue to monitor Electronic Signatures:Brionna Llanes) (Signed 06-Sep-2017 16:28)Authored: Service, Subjective Data, Objective Data, Assessment and Plan,Signature/Cosignature/A ttestation Last Updated: 06-Sep-2017 16:28 by Brionna Llanes) Normal [facility] FOLATE, SERUMon 09-06-2017 Folate [Mass/volume] in Serum or Plasma > 24.0 Normal >5.0 [facility] Comment on above: Result Comment: Viv ents receiving more than 5 mg/day of biotin may have interference in test results. A sample should be taken no sooner than eight hours after previous dose. Contact [phone] for additional information. Performed By: #### F OLA2 ####[id number] [place] [address] NR MRA HEAD W/O Con 09-07-19 18 NR MRA HEAD W/O C Name: KATHERINE JUDGE STUDY:NR MRI BRAIN WO; NR MRA HEAD W/O C; NR MRA NECK WO.C; 09/06/2017 12:00pm INDICATION:Signs/Symptoms: Recent fall, CHI, stroke symptoms- evaluate for acutestroke; ALTERED MENTAL STATUS. Stroke protocol. COMPARISON: CT head from 09/05/2017 [id number]; [id number] ORDERING CLINICIAN:ALTAGRACIA GOODMAN TECHNIQUE:Axial T2, FLAIR, DWI and sagittal and coronal T1 weighted images ofbrain were acquired. T0 axial gradient echo T2 imaging was alsoperformed. [id number] MRA of the head and neck was performed. The imageswere reviewed as source images and in multiplanar reformats andmaximum intensity projections. FINDINGS:The entire study is somewhat degraded by patient motion artifact. Brain: CSF Spaces: The ventricles, sulci and basal cisterns are diffuselyprominent indicating moderate diffuse cerebral volume loss. There isno extra-axial fluid collection. Parenchyma: There is a punctate focus of diffusion restrictioninvolving the right posterior temporal cortex with associated lowsignal on ADC and hyperintense signal on T2 and FLAIR imaging. Thismay reflect a small area of acute to subacute infarct versus a focusof cortical contusion. Evaluation for hemorrhage on gradient echoimaging is limited due to motion artifacts. There are subtle in point areas of DWI bright signal within leftaspect of devan with corresponding T2 and FLAIR hyperintensities.These may reflect artifact versus tiny foci of acute to subacuteinfarcts. There is no mass effect or midline shift. Paranasal Sinuses and Mastoids: Visualized paranasal sinuses areclear. Bilateral mastoids are clear. MRA of head: Anterior circulation: There is mild attenuation of flow withinbilateral carotid siphons which is probably secondary to artifact.Expected flow signal is noted within bilateral carotid terminus andproximal anterior and middle cerebral arteries.. Posterior circulation: Bilateral intracranial vertebral arteries,vertebrobasilar junction, basilar artery and proximal posteriorcerebral arteries demonstrate expected flow signal. MRA of neck: Evaluation of vascular detail is significantly limited on this examdue to artifacts. Within these limitations there is flow signalwithin bilateral common carotid arteries, carotid bifurcations andinternal carotid arteries in the neck. Flow signal is also noted inbilateral cervical vertebral arteries. IMPRESSION:MRI Brain: Punctate focus of diffusion restriction involving right temporalcortex may reflect a small focus of acute to subacute infarct versusa cortical contusion due to recent trauma. Evaluation for hemorrhagicproducts in this region is limited due to motion artifact on gradientecho imaging. Subtle foci of pinpoint diffusion signal abnormalities within theleft aspect of devan may reflect subacute tiny lacunar infarcts versusartifact. Nonspecific white matter changes involving bilateral cerebralhemispheres and brainstem, likely reflecting sequela of chronic smallvessel ischemic disease. Moderate diffuse cerebral volume loss. MRA: Motion limited exam limits evaluation of vascular detail. There is nomajor vessel cutoff on MRA head. Flow signal is identified withinmajor vessels on MRA neck. The study was interpreted at [facility].Electronically signed by: TOLU MARTINEZ MD [facility] NR MRA NECK WO.Con 8 NR MRA NECK WO.C Name: KATHERINE JUDGE STUDY:NR MRI BRAIN WO; NR MRA HEAD W/O C; NR MRA NECK WO.C; 09/06/2017 12:00pm INDICATION:Signs/Symptoms: Recent fall, CHI, stroke symptoms- evaluate for acutestroke; ALTERED MENTAL STATUS. Stroke protocol. COMPARISON: CT head from 09/05/2017 [id number]; [id number] ORDERING CLINICIAN:ALTAGRACIA NICOLAS; FLAKO GOODMAN TECHNIQUE:Axial T2, FLAIR, DWI and sagittal and coronal T1 weighted images ofbrain were acquired. T0 axial gradient echo T2 imaging was alsoperformed. [id number] MRA of the head and neck was performed. The imageswere reviewed as source images and in multiplanar reformats andmaximum intensity projections. FINDINGS:The entire study is somewhat degraded by patient motion artifact. Brain: CSF Spaces: The ventricles, sulci and basal cisterns are diffuselyprominent indicating moderate diffuse cerebral volume loss. There isno extra-axial fluid collection. Parenchyma: There is a punctate focus of diffusion restrictioninvolving the right posterior temporal cortex with associated lowsignal on ADC and hyperintense signal on T2 and FLAIR imaging. Thismay reflect a small area of acute to subacute infarct versus a focusof cortical contusion. Evaluation for hemorrhage on gradient echoimaging is limited due to motion artifacts. There are subtle in point areas of DWI bright signal within leftaspect of devan with corresponding T2 and FLAIR hyperintensities.These may reflect artifact versus tiny foci of acute to subacuteinfarcts. There is no mass effect or midline shift. Paranasal Sinuses and Mastoids: Visualized paranasal sinuses areclear. Bilateral mastoids are clear. MRA of head: Anterior circulation: There is mild attenuation of flow withinbilateral carotid siphons which is probably secondary to artifact.Expected flow signal is noted within bilateral carotid terminus andproximal anterior and middle cerebral arteries.. Posterior circulation: Bilateral intracranial vertebral arteries,vertebrobasilar junction, basilar artery and proximal posteriorcerebral arteries demonstrate expected flow signal. MRA of neck: Evaluation of vascular detail is significantly limited on this examdue to artifacts. Within these limitations there is flow signalwithin bilateral common carotid arteries, carotid bifurcations andinternal carotid arteries in the neck. Flow signal is also noted inbilateral cervical vertebral arteries. IMPRESSION:MRI Brain: Punctate focus of diffusion restriction involving right temporalcortex may reflect a small focus of acute to subacute infarct versusa cortical contusion due to recent trauma. Evaluation for hemorrhagicproducts in this region is limited due to motion artifact on gradientecho imaging. Subtle foci of pinpoint diffusion signal abnormalities within theleft aspect of devan may reflect subacute tiny lacunar infarcts versusartifact. Nonspecific white matter changes involving bilateral cerebralhemispheres and brainstem, likely reflecting sequela of chronic smallvessel ischemic disease. Moderate diffuse cerebral volume loss. MRA: Motion limited exam limits evaluation of vascular detail. There is nomajor vessel cutoff on MRA head. Flow signal is identified withinmajor vessels on MRA neck. The study was interpreted at [facility].Electronically signed by: TOLU MARTINEZ MD [facility] NR MRI BRAIN WOon 09-06-2017 NR MRI BRAIN WO Name: NUKATHERINE STUDY:NR MRI BRAIN WO; NR MRA HEAD W/O C; NR MRA NECK WO.C; 09/06/2017 12:00pm INDICATION:Signs/Symptoms: Recent fall, CHI, stroke symptoms- evaluate for acutestroke; ALTERED MENTAL STATUS. Stroke protocol. COMPARISON: CT head from 09/05/2017 [id number]; [id number] ORDERING CLINICIAN:ALTAGRACIA GOODMAN TECHNIQUE:Axial T2, FLAIR, DWI and sagittal and coronal T1 weighted images ofbrain were acquired. T0 axial gradient echo T2 imaging was alsoperformed. [id number] MRA of the head and neck was performed. The imageswere reviewed as source images and in multiplanar reformats andmaximum intensity projections. FINDINGS:The entire study is somewhat degraded by patient motion artifact. Brain: CSF Spaces: The ventricles, sulci and basal cisterns are diffuselyprominent indicating moderate diffuse cerebral volume loss. There isno extra-axial fluid collection. Parenchyma: There is a punctate focus of diffusion restrictioninvolving the right posterior temporal cortex with associated lowsignal on ADC and hyperintense signal on T2 and FLAIR imaging. Thismay reflect a small area of acute to subacute infarct versus a focusof cortical contusion. Evaluation for hemorrhage on gradient echoimaging is limited due to motion artifacts. There are subtle in point areas of DWI bright signal within leftaspect of devan with corresponding T2 and FLAIR hyperintensities.These may reflect artifact versus tiny foci of acute to subacuteinfarcts. There is no mass effect or midline shift. Paranasal Sinuses and Mastoids: Visualized paranasal sinuses areclear. Bilateral mastoids are clear. MRA of head: Anterior circulation: There is mild attenuation of flow withinbilateral carotid siphons which is probably secondary to artifact.Expected flow signal is noted within bilateral carotid terminus andproximal anterior and middle cerebral arteries.. Posterior circulation: Bilateral intracranial vertebral arteries,vertebrobasilar junction, basilar artery and proximal posteriorcerebral arteries demonstrate expected flow signal. MRA of neck: Evaluation of vascular detail is significantly limited on this examdue to artifacts. Within these limitations there is flow signalwithin bilateral common carotid arteries, carotid bifurcations andinternal carotid arteries in the neck. Flow signal is also noted inbilateral cervical vertebral arteries. IMPRESSION:MRI Brain: Punctate focus of diffusion restriction involving right temporalcortex may reflect a small focus of acute to subacute infarct versusa cortical contusion due to recent trauma. Evaluation for hemorrhagicproducts in this region is limited due to motion artifact on gradientecho imaging. Subtle foci of pinpoint diffusion signal abnormalities within theleft aspect of devan may reflect subacute tiny lacunar infarcts versusartifact. Nonspecific white matter changes involving bilateral cerebralhemispheres and brainstem, likely reflecting sequela of chronic smallvessel ischemic disease. Moderate diffuse cerebral volume loss. MRA: Motion limited exam limits evaluation of vascular detail. There is nomajor vessel cutoff on MRA head. Flow signal is identified withinmajor vessels on MRA neck. The study was interpreted at [facility].Electronically signed by: TOLU MARTINEZ MD Normal [facility] TSHon 09-06-2017 Thyrotropin Qn 2.11 m[IU]/L Normal 0.44 - 3.98 [facility] Comment on above: Result Comment: TSH testing is performed using different testing methodology at [facility] than at other [facility]. Direct result comparisons should only be made within the same method. Performed By: #### T SH2 ####[id number] [address] VITAMIN B12on 09-06-2017 Cobalamin (Vitamin B12) mass conc 770 pg/mL Normal 211 - 911 [facility] Comment on above: Performed By: #### V TB12 ####[id number] [place] [address] VITAMIN D, 25-HYDROXYon 08-10 VITAMIN D, 25-HYDROXY 19 ng/mL Abnormal [facility] Comment on above: Result Comment: .DEF ICIENCY: < 20 NG/MLINSUFFICIENCY: 20-29 NG/MLOPTIMUM LEVEL: 30-80 NG/MLPOSSIBLE TOXICITY: > 80 NG/MLTHIS ASSAY ACCURATELY QUANTIFIES THE SUM OFVITAMIN D3, 25-HYDROXY AND VIT D2,25-HYDROXY. Performed By: #### V TDOH ####[id number] [place] [address] Admission Risk Screen - Adul ton 09-05-2017 Admission Risk Screen - Adult Allergies: Allergies:? Lincocin: Rash? penicillin: Rash? tetracycline: Rash? erythromycin: Rash? Keflex: Syncope? Lunesta: Unknown? penicillin G benzathine: Unknown? Biaxin: Unknown? trazodone: Unknown? Clindamycin Hydrochloride: Unknown? aspirin: GI Bleeding? Vioxx: Bleeding? NSAIDs: GI Bleeding? Mold/Fungi: Unknown? Pollen: Unknown Intolerances:? Ativan: Confusion? Restoril: Confusion Patient Verification:? New W ID Band Applied in my Departmentyes? Patient Identity Verified Bypatient? ID Band FULL Name, include Middle, spelling matches patient's ID used forverificationyes? ID Band Matches Patient ID used for Verficationyes? ID Band MRN Matches EMR MRNyes Advance Directive:? Advance Directive Medicalunable to answer? Advance Directive Mental Healthnot applicable Falls Screen:Type of AssessmentadmissionModerate Risk Factorsaltered elimination, patient care equipment (scds, iv?s,chest tubes, soto, etc), sensory deficits, nursing judgment (specify)High Risk Factorsagitation/confusion, gait instability, impulsivity, recentfalls, unwillingness/unable to follow directionsRisk for Injury Associated with FallnoneFall Risk Conclusionhigh falls risk with low risk for associated injuryUniversal Safety InterventionsWDL except, orient to call system Family Violence Screen:? Are you or have you been threatened or abused physically, emotionally, orsexually by anyone?unable to assess? Do you feel UNSAFE going back to the place where you are living?unable toassess? Clinical assessment: Are there any apparent signs of injuries/behaviors thatcould be related to abuse/neglectunable to assess? Social Service Consult for abuse/neglect needed this visit?no Functional screen:? Functional Screen: In the recent/past 2-4 weeks, patient or family havenoticeda significant change in speech or language Learning Assessment (Patient):? Patient is Able to be Assessed for Learningno? Reason Unable to Assessmentally impaired confused Learning Assessment (Other Learner):? Other learner availableno Suicide/Depression Screen:? During the past month, have you often been bothered by feeling down,depressed or hopeless?unable to assess? During the past month, have you often had little interest or pleasure indoing things?unable to assess? Have you had any thoughts of harming yourself?unable to assess? Have you had any thoughts of harming anyone else?unable to assess Adult Nutrition Screen:? Have you recently lost weight without tryingunsure? Have you been eating poorly because of a decreased appetiteyes? MST Score3? RiskMST = 2 or more At Risk. Eating poorly and/or recent weight loss? Nutrition Consult needed this visit?yes? Can Patient Participate in Room Service?no? Patient requires Paper Dishes/Plastic Utensilsno Pain Screen:? Pain ScaleFACES? Pain Scale Educationunable to educate? Reasons for inability to educatecurrent condition? Current Pain Levelunable to assess? Acceptable Pain Levelunable to assess? Expression of Pain (nonverbal)anxious, jerking, restless? Chronic Painunable to assess Spiritual Screen:? Are there any cultural, spiritual, scientology practices/values/needs that areimportant for us to know?unable to assess CAGE:Is this an injured patient at a Trauma Center ([facility] / [place]): no Vaccinations:Vaccination - Influenza Vaccination Screen:? Is it flu season? (between and )No Vaccination - Pneumonia Vaccination Screen:? Patient has received a previous pneumonia vaccine:no/unknown...? Pneumonia vaccine NOT indicated due to:No contraindications to vaccine? Pneumonia vaccine indicated?yes Moustapha:Skin - Moustapha Scale: ? Moustapha: Sensory Perception (response to environment)(2) very limited? Moustapha: Moisture (degree skin exposed to moisture)(3) occasionally moist? Moustapha: Activity (ability to walk)(1) bedfast? Moustapha: Mobility (amount/control of body movement)(3) slightly limited? Moustapha: Nutrition (quality of food intake)(2) probably inadequate? Moustapha: Friction and Shear(2) potential problem? Moustapha: Score13 ? Skin Intervention Orders (Nursing orders will be generated)elevate heels, upin chair < 1 hr intervals, turn side to side every 2 hrs, assess fortherapeutic equipment, assess pressure points, hygiene care, toilet/ADL every 2hrs awake, toilet/ADL every 4 hrs asleep, educate prevent/treat pressure ulcer Significant Indicatiors:Significant Indicators: Complete Pressure Injury:Pressure Injury Present on Admissionno Electronic Signatures:Shira Chaidez (RN) (Signed 05-Sep-2017 06:29)Authored: Admission Risk Screens, Vaccinations, Moustapha, Pressure Injury Last Updated: 05-Sep-2017 06:29 by Shira Chaidez (RN) Normal [facility] BASIC METABOLIC PANELon 07-2 Anion gap 3 molar conc 11 mmol/L Normal 10 - 20 [facility] Comment on above: Performed By: #### B MP ####[facility] [id number] [facility] [place] [address] Calcium mass conc 8.9 mg/dL Normal 8.6 - 10.3 [facility] Comment on above: Performed By: #### B MP ####[id number] [place] [address] Chloride molar conc 104 mmol/L Normal 98 - 107 [facility] Comment on above: Performed By: #### B MP ####[id number] [place] [address] Creatinine mass conc 0.75 mg/dL Normal 0.50 - 1.05 [facility] Comment on above: Performed By: #### B MP ####[id number] [place] [address] GFR- AM. >60 Normal >60 [facility] Comment on above: Result Comment: CALC ULATIONS OF ESTIMATED GFR ARE PERFORMED USING THE MDRD STUDY EQUATION FOR THE IDMS-TRACEABLE CREATININE METHODS. CLIN CHEM 2007;53:766-72 Performed By: #### B MP ####[facility] [id number] [place] [address] GFR-NON AM. >60 Normal >60 [facility] Comment on above: Performed By: #### B MP ####[facility] [id number] [place] [address] Glucose mass conc 111 mg/dL High 74 - 99 [facility] Comment on above: Performed By: #### B MP ####[facility] [id number] [place] [address] HCO3 molar conc (Bld) 26 mmol/L Normal 21 - 32 [facility] Comment on above: Performed By: #### B MP ####[facility] [id number] [place] [address] Potassium molar conc 3.2 mmol/L Low 3.5 - 5.3 [facility] Comment on above: Performed By: #### B MP ####[facility] [id number] [place] [address] Sodium molar conc 138 mmol/L Normal 136 - 145 [facility] Comment on above: Performed By: #### B MP ####[facility] [id number] [place] [address] Urea nitrogen mass conc 11 mg/dL Normal 6 - 23 [facility] Comment on above: Performed By: #### B MP ####[facility] [id number] [place] [address] BLOOD CULTURE, BACTERIALon 0 09-05-2017 BLOOD CULTURE, BACTERIAL PATIENT: KATHERINE JUDGE LOCATION: [address]#: [id number] : [birth year] AGE: SEX: F ORDERED BY: LOTUS VANCE: Blood COLLECTED: 09/05/17 01:49ANTIBIOTICS AT ESDRAS.: RECEIVED : 09/05/17 11:22SITE: PERIPHERAL R E S U L T S BLOOD CULTURE, BACTERIAL FINAL 09/10/17 11:42 No Growth at 1 days No Growth at 2 days No Growth at 3 days No Growth at 4 days NO GROWTH - FINAL REPORT Normal [facility] Comment on above: Performed By: #### L IPID ####[facility] [place] [address] BLOOD CULTURE, BACTERIAL PATIENT: KATHERINE JUDGE LOCATION: [address]#: [id number] : [birth year] AGE: SEX: F ORDERED BY: LOTUS VANCE: Blood COLLECTED: 09/05/17 01:49ANTIBIOTICS AT ESDRAS.: RECEIVED : 09/05/17 11:22SITE: PERIPHERAL R E S U L T S BLOOD CULTURE, BACTERIAL FINAL 09/10/17 11:42 No Growth at 1 days No Growth at 2 days No Growth at 3 days No Growth at 4 days NO GROWTH - FINAL REPORT Normal [facility] Comment on above: Performed By: #### L IPID ####[id number] [place] [address] CBCon 09-05-2017 Erythrocyte distribution width Auto Ratio (RBC) 15.5 % High 11.5 - 14.5 [facility] Comment on above: Performed By: #### C BC ####[facility] [id number] [place] [address] Hematocrit Auto Volume Fraction (Bld) 27.1 % Low 36.0 - 46.0 [facility] Comment on above: Performed By: #### C BC ####[facility] [id number] [address] [place] [address] Hemoglobin mass conc (Bld) 8.5 g/dL Low 12.0 - 16.0 [facility] Comment on above: Performed By: #### C BC ####[facility] [id number] [place] [address] MCHC Auto mass conc (RBC) 31.4 g/dL Low 32.0 - 36.0 [facility] Comment on above: Performed By: #### C BC ####[facility] [id number] [facility] [place] [place] [address] MCV Auto Entitic volume (RBC) 100 fL Normal 80 - 100 [facility] Comment on above: Performed By: #### C BC ####[facility] [id number] [place] [address] Platelets Auto #/vol (Bld) 359 10*3/uL Normal 150 - 450 [facility] Comment on above: Performed By: #### C BC ####[facility] [id number] [place] [address] RBC Auto #/vol (Bld) 2.72 x10E12/L Low 4.00 - 5.20 [facility] Comment on above: Performed By: #### C BC ####[id number] [place] [address] WBC Auto #/vol (Bld) 10.6 10*3/uL Normal 4.4 - 11.3 [facility] Comment on above: Performed By: #### C BC ####[id number] [place] [address] CBC AND DIFFERENTIALon 09-05 % AUTOMATED IMMATURE GRAN 0.5 % Normal 0.0 - 0.9 [facility] Comment on above: Result Comment: Perc ent differential counts (%) should be interpreted in the context of the absolute cell counts (cells/L). Performed By: #### L IPID ####[id number] [place] [address] % NEUTROPHIL 70.6 % Normal 40.0 - 80.0 [facility] Comment on above: Performed By: #### L IPID ####[id number] [place] [address] Basophils/100 WBC Auto (Bld) 0.04 x10E9/L Normal 0.00 - 0.10 [facility] Comment on above: Performed By: #### L IPID ####[address] [address] Basophils/100 WBC Auto (Bld) 0.3 % Normal 0.0 - 2.0 [facility] Comment on above: Performed By: #### L IPID ####[address] [address] Eosinophils Auto #/vol (Bld) 0.13 10*3/uL Normal 0.00 - 0.40 [facility] Comment on above: Performed By: #### L IPID ####[address] [address] Eosinophils/100 WBC Auto (Bld) 1.1 % Normal 0.0 - 6.0 [facility] Comment on above: Performed By: #### L IPID ####[address] [address] Erythrocyte distribution width Auto Ratio (RBC) 15.3 % High 11.5 - 14.5 [facility] Comment on above: Performed By: #### L IPID ####[address] [address] Hematocrit Auto Volume Fraction (Bld) 25.6 % Low 36.0 - 46.0 [facility] Comment on above: Performed By: #### L IPID ####[address] [address] Hemoglobin mass conc (Bld) 8.4 g/dL Low 12.0 - 16.0 [facility] Comment on above: Performed By: #### L IPID ####[address] [address] Lymphocytes Auto #/vol (Bld) 2.55 10*3/uL Normal 0.80 - 3.00 [facility] Comment on above: Performed By: #### L IPID ####[address] [address] Lymphocytes/100 WBC Auto (Bld) 21.6 % Normal 13.0 - 44.0 [facility] Comment on above: Performed By: #### L IPID ####[address] [address] MCHC Auto mass conc (RBC) 32.8 g/dL Normal 32.0 - 36.0 [facility] Comment on above: Performed By: #### L IPID ####[address] [address] MCV Auto Entitic volume (RBC) 100 fL Normal 80 - 100 [facility] [facility] Comment on above: Performed By: #### L IPID ####[address] [address] Monocytes Auto #/vol (Bld) 0.70 10*3/uL Normal 0.05 - 0.80 [facility] Comment on above: Performed By: #### L IPID ####[address] [address] Monocytes/100 WBC Auto (Bld) 5.9 % Normal 2.0 - 10.0 [facility] Comment on above: Performed By: #### L IPID ####[address] [address] Neutrophils Auto #/vol (Bld) 8.31 10*3/uL High 1.60 - 5.50 [facility] Comment on above: Performed By: #### L IPID ####[address] [address] Platelets Auto #/vol (Bld) 422 10*3/uL Normal 150 - 450 [facility] Comment on above: Performed By: #### L IPID ####[address] [address] RBC Auto #/vol (Bld) 2.56 x10E12/L Low 4.00 - 5.20 [facility] Comment on above: Performed By: #### L IPID ####[address] [address] WBC Auto #/vol (Bld) 11.8 10*3/uL High 4.4 - 11.3 [facility] Comment on above: Performed By: #### L IPID ####[address] [address] CHEST 1 VIEWon 09-05-2017 CHEST 1 VIEW Name: KATHERINE JUDGE STUDY:CHEST 1 VIEW; 09/05/2017 2:02 am INDICATION:Signs/Symptoms: FALL HEAD INJURY ALTERED MENTAL STAUS. COMPARISON:08/26/2017 ORDERING CLINICIAN:MARIA A VANCE FINDINGS:The patient is rotated. CARDIOMEDIASTINAL SILHOUETTE:Stable cardiomegaly. Large hiatal hernia again noted. LUNGS:No pulmonary consolidation, pleural effusion or pneumothorax. ABDOMEN:No remarkable upper abdominal findings. BONES:Old right rib and old right proximal humerus fractures. IMPRESSION:No acute cardiopulmonary process.Large hiatal hernia.Electronically signed by: CAMILLE VELÁZQUEZ MD Normal [facility] COMPREHENSIVE PANELon 2017 Albumin mass conc 3.3 g/dL Low 3.4 - 5.0 [facility] Comment on above: Performed By: #### L IPID ####[id number] [place] [address] ALP enzyme act/vol 95 U/L Normal 33 - 136 [facility] Comment on above: Performed By: #### L IPID ####[address] [address] ALT enzyme act/vol 16 U/L Normal 7 - 45 [facility] Comment on above: Result Comment: Viv ents treated with Sulfasalazine may generate falsely decreased results for ALT. Performed By: #### L IPID ####[address] [place] [address] Anion gap 3 molar conc 14 mmol/L Normal 10 - 20 [facility] Comment on above: Performed By: #### L IPID ####[address] [address] AST enzyme act/vol 19 U/L Normal 9 - 39 [facility] Comment on above: Performed By: #### L IPID ####[address] [place] [address] Bilirubin mass conc 0.4 mg/dL Normal 0.0 - 1.2 [facility] Comment on above: Performed By: #### L IPID ####[address] [place] [address] Calcium mass conc 9.2 mg/dL Normal 8.6 - 10.3 [facility] Comment on above: Performed By: #### L IPID ####[address] [address] Chloride molar conc 99 mmol/L Normal 98 - 107 [facility] Comment on above: Performed By: #### L IPID ####[id number] [place] [address] Creatinine mass conc 0.99 mg/dL Normal 0.50 - 1.05 [facility] Comment on above: Performed By: #### L IPID ####[address] [place] [address] GFR- AM. 65 mL/min/1.73m2 Normal >60 [facility] Comment on above: Result Comment: CALC ULATIONS OF ESTIMATED GFR ARE PERFORMED USING THE MDRD STUDY EQUATION FOR THE IDMS-TRACEABLE CREATININE METHODS. CLIN CHEM 2007;53:766-72 Performed By: #### L IPID ####[address] [address] GFR-NON AM. 54 mL/min/1.73m2 Abnormal >60 [facility] Comment on above: Performed By: #### L IPID ####[address] [address] Glucose mass conc 94 mg/dL Normal 74 - 99 [facility] Comment on above: Performed By: #### L IPID ####[address] [address] HCO3 molar conc (Bld) 28 mmol/L Normal 21 - 32 [facility] Comment on above: Performed By: #### L IPID ####[address] [address] Potassium molar conc 3.4 mmol/L Low 3.5 - 5.3 [facility] Comment on above: Performed By: #### L IPID ####[address] [place] [address] Protein mass conc 6.9 g/dL Normal 6.4 - 8.2 [facility] Comment on above: Performed By: #### L IPID ####[address] [place] [address] Sodium molar conc 138 mmol/L Normal 136 - 145 [facility] Comment on above: Performed By: #### L IPID ####[facility] [place] [address] Urea nitrogen mass conc 16 mg/dL Normal 6 - 23 [facility] Comment on above: Performed By: #### L IPID ####[facility] [place] [address] CT HEAD WO CONTRASTon 2017 CT HEAD WO CONTRAST Name: KATHERINE JUDGE STUDY:CT HEAD WO CONTRAST; 09/05/2017 2:02 am INDICATION:Signs/Symptoms: FALL HEAD INJURY ALTERED MEBTAL STAUS. COMPARISON:07/26/2017 ORDERING CLINICIAN:MARIA A VANCE TECHNIQUE:Axial noncontrast CT images of the head. FINDINGS:BRAIN PARENCHYMA: Turner-white matter interfaces are preserved. No masseffect or midline shift. Deep and periventricular white matterhypodensities are nonspecific, but favored to represent chronic smallvessel ischemic changes. HEMORRHAGE: No acute intracranial hemorrhage.VENTRICLES and EXTRA-AXIAL SPACES: Ventricular and sulcal prominencecompatible with parenchymal atrophy.EXTRACRANIAL SOFT TISSUES: Within normal limits.PARANASAL SINUSES/MASTOIDS: The visualized paranasal sinuses andmastoid air cells are aerated.CALVARIUM: No depressed skull fracture. No destructive osseous lesion. OTHER FINDINGS: None. IMPRESSION:No acute intracranial abnormality. Parenchymal atrophy and chronic small vessel ischemic changes.Electronically signed by: CAMILLE VELÁZQUEZ MD Normal [facility] Consult - Neuroon 09-05-2017 Consult - Neuro Service:Consult:Cons ult requested by (Attending Name): Dr. Abraham: Syncope History of Present Illness:HPI:This is a 82 year old woman, poor historian, amnestic for her fall,unwitnessed, resulting in a CHI, resulting in a left forehead contusion, shewas found on the floor. She was recently discharged from this hospital on bro38bp after management ofa SBO. She has had FTT, repeated abdominal surgeries. PMH: CAD, depression,anemia. Nursing tells me that she has had visual hallucinations: reaching forthings she apparently sees in the air. 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 PMH, PSH, SH, and FH were reviewed in the medical record. History of CABG. Review Family/Social History and ROS: Review Family/Social History and ROS: No family/social history has been recorded on this patient. No ROS has been documented on this patient. Allergies:? Lincocin: Rash? penicillin: Rash? tetracycline: Rash? erythromycin: Rash? Keflex: Syncope? Lunesta: Unknown? penicillin G benzathine: Unknown? Biaxin: Unknown? trazodone: Unknown? Clindamycin Hydrochloride: Unknown? aspirin: GI Bleeding? Vioxx: Bleeding? NSAIDs: GI Bleeding? Mold/Fungi: Unknown? Pollen: Unknown Intolerances:? Ativan: Confusion? Restoril: Confusion Objective: Objective Information: T [id number] ate/Time09/05 6: 6: 6: 6:16Range(36.7C - 36.7C ) (90 - 90 ) (20 - 20 ) (146 - 146 )/ (92 - 92 ) General Neurology: General Neurology Extensive Exam: GENERAL APPEARANCE: Alert, moderatelyconfused elderly woman. Ecchymosis over the left forehead. CARDIOVASCULAR: Regular, rate and rhythm, no murmurs, normal S1 and S2.Carotid pulses intact without any bruits. Pulses +2 and equal in allextremities. No swelling, varicosities, edema, or tenderness to palpation.MENTAL STATE:Orientation was normal for month, recalls her age. Remote memory at leastpartially intact. Language testing was normal for comprehension, repetition,expression, and naming. The patient could correctly interpret a picture. OPHTHALMOSCOPIC:The ophthalmoscopic exam deferred- poor cooperation.CRANIAL NERVES:Cranial nerves were normal.CN 2Visual Acuity visual holden full to confrontation.CN 3, 4, 6Pupils round, 4 mm in diameter, equally reactive to light. Lids symmetric; noptosis. EOMs normal alignment, full range with normal saccades, pursuit andconvergence.VOR normal. No nystagmus.CN 5Facial sensation intact bilaterally.CN 7Normal and symmetric facial strength. Nasolabial folds symmetric.CN 8Hearing intact to finger rub and tuning fork.CN 9Palate elevates symmetrically. Normal gag reflex.CN 11Normal strength of shoulder shrug and neck turning.CN 12Tongue midline, with normal bulk and strength; no fasciculations. MOTOR:Motor exam was abnormal. Muscle bulk and tone were normal in both upper andlower extremities. Muscle strength was 5/5 in distal and proximal muscles inboth upper and lower extremities. No fasciculations, tremor or other abnormalmovements were present. Moderately severe dysarthria. REFLEXES:Reflexes were normal. RIGHT UE LEFT UEBR:2 BR:2Biceps:2 Biceps:2Triceps:2 Triceps:2 RIGHT LLE LEFT LLEKnee:2 Knee:2Ankle:2 Ankle:2 Babinski: toes downgoing to plantar stimulation. No clonus, frontal releasesigns or other pathologic reflexes present. SENSORY:Sensory exam was normal. In both upper and lower extremities, sensation wasintact to light touch; sharp/dull,vibration and joint position sense. COORDINATION:Coordination exam was normal. In both upper extremities, skrxat-ufcs-xqcksvxvb intact without dysmetria or overshoot.In both lower extremities, ciuq-ta-xfdu was intact. DONALD were intact in bothupper and lower extremities. GAIT:Gait was abnormal: walked with the assistance of two people. Medications: Medications: Continuous Medications ---- 1. Sodium Chloride 0.9% with Potassium CL 20 mEq Premix Fluid: 1000 mLIntraVenous Scheduled Medications ---- 1. Enoxaparin SubCutaneous: 40 mg SubCutaneous Every 24 Hours2. Potassium Chloride Extended Release: 20 mEq Oral Every 2 Hours PRN Medications ----No PRN medications are active Recent Lab Results: Results: I have reviewed these laboratory results: Basic Metabolic Panel 05-Sep-2017 08:30:00 ResultValueGlucose, Serum 111 HNA 138K 3.2 LCL 104Bicarbonate, Serum 26Anion Gap, Serum 11BUN 11CREAT 0.75GFR-Non >60GFR- >60Calcium, Serum 8.9 Complete Blood Count 05-Sep-2017 08:30:00 ResultValueWhite Blood Cell Count 10.6Red Blood Cell Count 2.72 LHGB 8.5 LHCT 27.1 LMCV 100MCHC 31.4 LPLT 359RDW-CV 15.5 H Urinalysis 05-Sep-2017 01:37:00 ResultValueColor, Urine STRAW Reference Range: STRAW,YELLOWAppearance, Urine CLEARSpecific Max, Urine 1.005pH, Urine 6.0Protein, Urine NEGATIVEGlucose, Urine NEGATIVEBlood, Urine NEGATIVEKetones, Urine NEGATIVEBilirubin, Urine NEGATIVEUrobilinogen, Urine <2.0Nitrite, Urine NEGATIVELeukocyte Esterase, Urine NEGATIVE Radiology Results: Results: Impression: No acute cardiopulmonary process.Large hiatal hernia. Xray Chest 1 View [Sep 05 2017 2:53AM] Impression: No acute intracranial abnormality. Parenchymal atrophy and chronic small vessel ischemic changes. CT Head without Contrast [Sep 05 2017 2:52AM] NIH Stroke Scale: Level of Consciousness: 0 = alertLOC Question: 0 = both correctLOC Commands: 0 = obeys bothBest Gaze: 0 = normalVisual Field: 0 = no visual lossFacial Paresis: 0 = normalLeft Upper Extremity: 0 = no drift; 10 secondsRight Upper Extremity: 0 = no drift; 10 secondsDysarthria: 2 = unintelligibleLeft Lower Extremity: 0 = no drift; 5 secondsRight Lower Extremity: 0 = no drift; 5 secondsBest Language: 0 = no aphasiaLimb Ataxia: 0 = absentSensory: 0 = absentNeglect: 0 = noneNIHSS Score: 2 Assessment/Recommendations:I mpression: 82 year old woman with recent CHI due to a fall, with previous SBOadmission. There is no apparent history of dementia. Possibly the patient hadarisen from bed and lost her balance and/or was confusion. Apparently she hadvisual hallucinations all day before her fall. I recommend a MRI of the brainto rule out a an acute ischemic stroke. Will check dementia labs. Will checkan EEG to evaluate for a possible seizure. Discussed with Dr. Sepulveda. Thepatient has dysarthria, makes me think she may have had an acute ischemicstroke. 50 minutes was spent with this patient, >50% of the time was spentcounseling and/or coordination of care. Electronic Signatures:Altagracia Nicolas) (Signed 05-Sep-2017 12:10)Authored: Service, History of Present Illness, Review Family/Social Historyand ROS, Allergies, Objective, NIH Stroke Scale, Assessment/Recommendations,S ignature/Cosignature/Attesta tion Last Updated: 05-Sep-2017 12:10 by Altagracia Nicolas) [facility] Discharge Planning Noteon Discharge Planning Note Discharge Needs Assessment:? Discharge Planning Assessment [id number]? Discharge Planning Assessment Completed byMeghan Haro RN-BC? Readmission Within the Last 30 Daysprevious discharge plan unsuccessful? Primary Care PhysicianDrLeigh Garnett Adult Information:? Reason for Admission as Stated by PatientAMS? Primary Support Person During Hospitalizationdontae Schuler ? Lives Withspouse? Financial Concernsnone Other Factors:? Functional Screen: In the recent/past 2-4 weeks, patient or family havenoticeda significant change in speech or language(1) Discharge Planning:Discharge Plannin09/05/17 From [facility]. Just d/c from [facility] 09/03/17, had small bowelobstruction. Unwitnessed fall, change in mental status, confused. Shouldreturn to SNF when medically stable. Will follow pt through hospital stay andadjust plan as needed. Meghan Haro RN-BC 09/07/17 1054 DSC: Return SNF referral sent to [facility] awaiting response.Olga Lehman Discharge Art Class Model [phone] 09/07/17 1139 DSC: Response received from following fdc facilities:[facility] has accepted patient. Olga Lehman Discharge SupportCoordinator [phone] 09/08/17 1131 DSC: No 7000 needed, final orders attached and sent to facility.Olga Lehman Discharge Art Class Model [phone] 09/08/17 late entry PCN: Director Channel/Associate Account Director notified transportset for 1300 pear picker, via wheelchair with [facility] providingtransport. Keyana Haro, Bowl Sander, Final Disposition/Discharge:Dispos ition/Discharge Information: Discharge/Transfer Information:? Discharge/Transfer Date/[id number] 13:00? Discharge Modewheelchair? Transportation Methodtransportation service? Valuables/Medications/Belong ings Returnedyes? Belongings CommentDischarged to SNF. IV out, tip intact. Telemetry placed inbasket. All questions answered. Electronic Signatures:LehmanOlga sanders (COOR) (Signed 08-Sep-2017 11:32)Authored: Discharge Planning Elida Coats (RN) (Signed 08-Sep-2017 13:17)Authored: Final Disposition/DischargePenelope Haro (CLIN COOR) (Signed 05-Sep-2017 14:09)Authored: Discharge Planning Alex Monson (COOR) (Signed 08-Sep-2017 16:20)Authored: Discharge Planning Note Last Updated: 08-Sep-2017 16:20 by Alex Haro (COOR) References:1. Data Referenced From Admission Risk Screen - Adult 09/05/2017 6:24 AM Normal [facility] History and Physicalon 09-05 History and Physical History of Present Illness:Admission Reason: Acute encephalopathyHPI:82-year-ol d female with a past medical history of failure to thrive,gastrocutaneous fistula, constipation, ileus, small bowel obstruction,transient ischemic colitis, anemia, protein calorie malnutrition, hypokalemia,hypomagnesemia and colitis was admitted from the [facility] emergency room due toaltered mental status. Patient has had multiple abdominal surgeries in [facility]. She was recently discharged from the hospital on 09/01/17 aftermanagement of small bowel obstruction. Patient was found on the floor after anunwitnessed fall. She was noted to be confused. Her mouth is very dry. Shewas not able to provide any reliable history. She follows some commands. Past medical history: As stated above. Past surgical history: Multiple abdominal surgeries Social history: Patient never smoked. Does not GEN protocol. She is retired.No illicit drug use. She is and has one child. Family history significant for diabetes. Review of systems: Unable to obtain due to confusion. History was obtainedfrom the ER physician and from the chart. Allergies:? Lincocin: Rash? penicillin: Rash? tetracycline: Rash? erythromycin: Rash? Keflex: Syncope? Lunesta: Unknown? penicillin G benzathine: Unknown? Biaxin: Unknown? trazodone: Unknown? Clindamycin Hydrochloride: Unknown? aspirin: GI Bleeding? Vioxx: Bleeding? NSAIDs: GI Bleeding? Mold/Fungi: Unknown? Pollen: Unknown Intolerances:? Ativan: Confusion? Restoril: Confusion Objective: Objective Information: T [id number]/92D ate/Time09/05 6: 6: 6: 6:16Range(36.7C - 36.7C ) (90 - 90 ) (20 - 20 ) (146 - 146 )/ (92 - 92 ) Physical Exam: Constitutional: Malnourished female, awake but confused. Not in distress.Eyes: EOMI, clear sclera, no photophobiaENMT: mucous membranes very dry.Head/Neck: Neck supple, small laceration around the eye on the left side of theface. Patient also has some bruises on the left side of the face. She hassignificant bruises in the left hip area as well as bilateral knee area.Respiratory/Thorax: Patent airways, CTAB, normal breath sounds with good chestexpansion, thorax symmetricCardiovascular: Regular, rate and rhythm, 2+ equal pulses of the extremities,normal S 1and S 2Gastrointestinal: Nondistended, soft, non-tender, no rebound tenderness orguarding, +BS, no bruitsGenitourinary: deferMusculoskeletal: ROM intactExtremities: no cyanosis, no edemaNeurological: Confused, oriented in person, she moves all limbsBreast: deferPsychological: ConfusedSkin: Warm and dry Medications: Medications: Continuous Medications ---- 1. Sodium Chloride 0.9% with Potassium CL 20 mEq Premix Fluid: 1000 mLIntraVenous Scheduled Medications ---- 1. Enoxaparin SubCutaneous: 40 mg SubCutaneous Every 24 Hours2. Pneumococcal 13-Valent (PREVNAR 13) Vaccine: 0.5 mL IntraMuscular Once PRN Medications ----No PRN medications are active Recent Lab Results: Results: I have reviewed these laboratory results: Lactate, Level 05-Sep-2017 01:49:00 ResultValueLactate, Level 1.0 Troponin I, Serum 05-Sep-2017 01:49:00 ResultValueTroponin I, Serum 0.02 Urinalysis 05-Sep-2017 01:37:00 ResultValueColor, Urine STRAW Reference Range: STRAW,YELLOWAppearance, Urine CLEARSpecific Max, Urine 1.005pH, Urine 6.0Protein, Urine NEGATIVEGlucose, Urine NEGATIVEBlood, Urine NEGATIVEKetones, Urine NEGATIVEBilirubin, Urine NEGATIVEUrobilinogen, Urine <2.0Nitrite, Urine NEGATIVELeukocyte Esterase, Urine NEGATIVE Complete Blood Count + Differential 05-Sep-2017 01:36:00 ResultValueWhite Blood Cell Count 11.8 HRed Blood Cell Count 2.56 LHGB 8.4 LHCT 25.6 LMCV 100MCHC 32.8PLT 422RDW-CV 15.3 HNeutrophil % 70.6Immature Granulocytes % 0.5Lymphocyte % 21.6Monocyte % 5.9Eosinophil % 1.1Basophil % 0.3Neutrophil Count 8.31 HLymphocyte Count 2.55Monocyte Count 0.70Eosinophil Count 0.13Basophil Count 0.04 Comprehensive Metabolic Panel 05-Sep-2017 01:36:00 ResultValueGlucose, Serum 94NA 138K 3.4 LCL 99Bicarbonate, Serum 28Anion Gap, Serum 14BUN 16CREAT 0.99GFR-Non 54 AGFR- 65Calcium, Serum 9.2ALB 3.3 LALKP 95T Pro 6.9T Bili 0.4Alanine Aminotransferase, Serum 16Aspartate Transaminase, Serum 19 PT + INR, Plasma 05-Sep-2017 01:36:00 ResultValueProthrombin Time, Plasma 11.5International Normalized Ratio, Plasma 1.1 RBC Morphology 05-Sep-2017 01:36:00 ResultValueRed Blood Cell Morphology See BelowHypochromasia Mild Radiology Results: Results: Impression: No acute cardiopulmonary process.Large hiatal hernia. Xray Chest 1 View [Sep 05 2017 2:53AM] Impression: No acute intracranial abnormality. Parenchymal atrophy and chronic small vessel ischemic changes. CT Head without Contrast [Sep 05 2017 2:52AM] Assessment and Plan:Assessment:82-year-old female with a past medical history of failure to thrive,gastrocutaneous fistula, constipation, ileus, small bowel obstruction,transient ischemic colitis, anemia, protein calorie malnutrition, hypokalemia,hypomagnesemia and colitis was admitted from the [facility] emergency room due toaltered mental status. Acute encephalopathy-Unclear etiology-Patient appears volume depleted. Unclear if she has been eating.-She is still confused.-We will admit for observation-We will consult neurology. Status post unwitnessed fall-Periorbital contusion-EKG showed normal sinus rhythm with RBBB and some ST changes in the inferiorleads.-We will check orthostatic blood pressure-We will repeat EKG and check troponin.-We will monitor Mild leukocytosis-May be due to stress-No evidence for UTI-We will monitor Hypokalemia-We will repeat labs DVT prophylaxis-Lovenox CODE STATUS: DO NOT RESUSCITATE [facility] records. Signatures/Attestation/Certi fication:Attending Provider ? Inpatient Certification StatementN/A - observationpatient/other outpatient visits Electronic Signatures:Flako Goodman) (Signed 05-Sep-2017 07:49)Authored: History of Present Illness, Comorbidities, Allergies, Objective,Assessment and Plan, Signatures/Attestation/Certi fication Last Updated: 05-Sep-2017 07:49 by Flako Goodman) Normal [facility] LACTATEon 09-05-2017 Lactate molar conc 1.0 mmol/L Normal 0.4 - 2.0 [facility] Comment on above: Result Comment: Hali puncture immediately after or during the administration of Metamizole may lead to falsely low results. Testing should be performed immediately prior to Metamizole dosing. Performed By: #### L IPID ####[facility] [place] [address] PT/INRon 09-05-2017 INR Coag RelTime (PPP) 1.1 {INR} Normal 0.9 - 1.1 [facility] Comment on above: Performed By: #### L IPID ####[facility] [place] [address] Prothrombin time (PT) Coag time (PPP) 11.5 s Normal 9.8 - 12.7 [facility] Comment on above: Performed By: #### L IPID ####[facility] [place] [address] Patient Profile - Adult v2on 09-05-2017 Protein mass conc Profile:Initial Info :How to be AddressedAlice(1)Spoken Language PreferredEnglish (2)Source of InformationpatientAre you currently using the Personal Electronic Health Record or [employer]no(1)Stated Reason for Admissionunable to respond appropriately.Arrived Fromemergency departmentPatient BelongingsnoneMedications Brought to [facility]:Weight in kg43.8 kilogram(s)Weight in lbs96.7 pound(s)Height in feet5 feetHeight in inches0 inch(es)Height in cm152.4 centimeter(s)BMI (kg/m2)18.858 square meterWeight Methodactual (measured)Scale TypebedHeight Methodestimated RSP Based Care:How would you like to participate in your care?naWhat is the number one concern for you during this hospitalization?naWhat is the most important thing we can do to support you during thishospitalization?naIs there anything we need to know to best care for you?na Substance:Current or Former Substance Use never: Cigarette/Tobacco(1), Alcohol(1),Street Drugs(1) Health Mgmt:Symptoms/Conditions Managed at Homecardiovascular; gastrointestinal;musculoskel etalCardiovascular ManagementmanagedGastrointes tinal ManagementmanagedMusculoskel etal Managementmanaged Relationship/Environ:Primary Source of Support/Comfortno oneLives WithaloneLiving Arrangementsextended care facilityResource/Environment al ConcernsnoneAnticipated Transition Toinpatient rehabilitation facilityServices Anticipated at Transitionrehabilitation services; skilled nursingSignificant IndicatorsComplete Information Review:? Allergies, Home Meds and Significant Events have been Reviewed and Verifiedwith Patient/Familyyes ALLERGY, INTOLERANCE, ADVERSE EVENT: Allergies:? Lincocin: Drug, Rash, Active? penicillin: Drug, Rash, Active? tetracycline: Drug, Rash, Active? erythromycin: Drug, Rash, Active? Keflex: Drug, Syncope, Active? Lunesta: Drug, Unknown, Active? penicillin G benzathine: Drug, Unknown, Active? Biaxin: Drug, Unknown, Active? trazodone: Drug, Unknown, Active? Clindamycin Hydrochloride: Drug, Unknown, Active? aspirin: Drug, GI Bleeding, Active? Vioxx: Drug, Bleeding, Active? NSAIDs: Drug Category, GI Bleeding, Active? Mold/Fungi: Environment, Unknown, Active? Pollen: Environment, Unknown, Active Intolerances:? Ativan: Drug, Confusion, Active? Restoril: Drug, Confusion, Active Electronic Signatures:Shira Chaidez (RN) (Signed 05-Sep-2017 06:39)Authored: Profile, Additional Information Last Updated: 05-Sep-2017 06:39 by Shira Chaidez (CINTHYA) References:1. Data Referenced From Patient Profile - Adult v2 08/26/2017 04:19 AM2. 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 She was found on the floorwith unwitnessed fall and left-sided forehead contusion how she has beensomewhat confused later on she was found to be more profoundly confused talk toobjects in the ear and looking at things in the area as a result she was sentto the ER for evaluation. Patient herself cannot provide history. Patient[facility] care physician Dr. royal was kind enough to call in advance and providebrief history. HISTORY OF PRESENTING ILLNESSALICE was seen by me at 05-Sep-2017 00:41 for a chief complaint of alteredmental status(1). Triage Information: Most recent Vital Sign Value Date Temp (F): 97.6 09-05-2017 00:33 Temp (C): 36.4 09-05-2017 00:33 Heart Rate (beats/min): 85 09-05-2017 00:33 Respirations (breaths/min): 20 09-05-2017 00:33 SpO2 (%): 94 09-05-2017 00:33 BP Systolic (mm Hg): 148 09-05-2017 00:33 BP Diastolic (mm Hg): 75 09-05-2017 00:33 PAST MEDICAL HISTORYATTESTATION: I have reviewed and confirmed nurse's/medic's notes for patient'smedications, allergies, medical history, and surgical history ALLERGIES/INTOLERANCES: Allergy Allergen: Lincocin Type: Drug Reaction: Rash Allergen: penicillin Type: Drug Reaction: Rash Allergen: tetracycline Type: Drug Reaction: Rash Allergen: erythromycin Type: Drug Reaction: Rash Allergen: Keflex Type: Drug Reaction: Syncope Allergen: Lunesta Type: Drug Reaction: Unknown Allergen: penicillin G benzathine Type: Drug Reaction: Unknown Allergen: Biaxin Type: Drug Reaction: Unknown Allergen: trazodone Type: Drug Reaction: Unknown Allergen: Clindamycin Hydrochloride Type: Drug Reaction: Unknown Allergen: aspirin Type: Drug Reaction: GI Bleeding Allergen: Vioxx Type: Drug Reaction: Bleeding Allergen: NSAIDs Type: Drug Category Reaction: GI Bleeding Allergen: Mold/Fungi Type: Environment Reaction: Unknown Allergen: Pollen Type: Environment Reaction: Unknown Intolerance Allergen: Ativan Type: Drug Reaction: Confusion Allergen: Restoril Type: Drug Reaction: Confusion HEALTH HISTORY: Medical History Name:Generalized abdominal pain (finding) Code:N/A Name:Acute bowel obstruction Code:N/A Name:Small bowel obstruction (disorder) Code:N/A Name:Colitis (disorder) Code:N/A Name:Magnesium deficiency Code:N/A Name:Hypokalemia (disorder) Code:N/A Name:Protein malnutrition unspecified (disorder) Code:N/A Name:Transient ischemic colitis (disorder) Code:N/A Name:Anemia due to unknown or multiple mechanisms (disorder) Code:N/A Name:Exploratory laparotomy Code:N/A Name:Ileus Code:N/A Name:Constipation Code:N/A Name:Gastrocutaneous fistula Code:N/A Name:Failure to thrive Code:R62.51 OUTPATIENT MEDICATIONS: Home Medications Review Status for Reconciliation: N/Guillaume Status: Patient Currently Takes Medications Drug Name: Centrum Silver oral tabletInstructions: 1 tab(s) orally once a day Drug Name: alendronate 70 mg oral tabletInstructions: 1 tab(s) orally once a week on Thursday Drug Name: clopidogrel 75 mg oral tabletInstructions: 1 tab(s) orally once a day Drug Name: Zoloft 100 mg oral tabletInstructions: 1.5 tab(s) orally once a day Drug Name: Flonase 50 mcg/inh nasal sprayInstructions: 1 spray(s) in each nostril once a day Drug Name: Colace 100 mg oral capsuleInstructions: 1 cap(s) orally once a day, As Needed Drug Name: lisinopril 10 mg oral tabletInstructions: 1 tab(s) orally once a day Drug Name: metoprolol tartrate 50 mg oral tabletInstructions: 1 tab(s) orally every 12 hours Drug Name: oxybutynin 5 mg oral tabletInstructions: 1 tab(s) orally 3 times a day, As Needed Drug Name: furosemide 20 mg oral tabletInstructions: 1 tab(s) orally once a apoW-K-Fk-F-Sa Drug Name: tiZANidine 2 mg oral tabletInstructions: 1 tab(s) orally once a day Drug Name: gabapentin 300 mg oral capsuleInstructions: 1 cap(s) orally 3 times a day Drug Name: saliva substitutes oral solutionInstructions: 15 milliliter(s) orally 4 times a day Drug Name: Os-Ramiro Calcium+D3 oral tabletInstructions: 1 tab(s) orally once a day Drug Name: isosorbide mononitrate 60 mg oral tablet, extended releaseInstructions: 1 tab(s) orally once a day Drug Name: ferrous sulfate 325 mg (65 mg elemental iron) oral tabletInstructions: 1 tab(s) orally once a day Drug Name: potassium chloride extended releaseInstructions: 1 tab(s) orally once a day Drug Name: Protonix 40 mg oral delayed release tabletInstructions: 1 tab(s) orally once a day SIGNIFICANT EVENTS: Clinical Events This Visit Description:12-25-2009 cabgx2 STRONG Lft SVG Status:Active Description:Surgical Procedure Additional Notes:Coronary Artery Bypass Status:Active Description:Surgical Procedure Additional Notes:Epidural Injection Status:Active Description:Surgical Procedure Additional Notes:Epidural Injection Status:Active Description:Surgical Procedure Additional Notes:Epidural Injection Status:Active Description:Surgical Procedure Additional Notes:Joint Injection Status:Active Description:Surgical Procedure Additional Notes:Facet Injection Status:Active Description:Surgical Procedure Additional Notes:Facet Injection Status:Active Description:Surgical Procedure Additional Notes:Facet Injection Status:Active Description:Surgical Procedure Additional Notes:Bowel Resection Supine Status:Active Description:Surgical Procedure Additional Notes:Laparotomy Exploratory Status:Active Description:Surgical Procedure Additional Notes:Line Placement Central Status:Active Description:Surgical Procedure Additional Notes:Gastrostomy/Jejunostom y Status:Active Description:Surgical Procedure Additional Notes:US GUIDED PLACEMENT LEFT IJ TLC / ELAP / ANDREIA / RIGHTCOLECTOMY / STAPLED ILEOCOLONIC ANASTAMOSIS / BILATERAL TAP BLOCK Status:Active Immunizations Description:.Influenza- Influenza Virus Status:Active Description:.Pneumonia- Pneumococcal polysaccharide vaccine-adult Status:Active Infection Control Description:Clostridium difficile toxin (C-Diff) Additional Notes:came with ( [facility]) Status:Active Description:Methicillin-Resi stant Staph Aureus (MRSA) Additional Notes:sputum Status:Active Description:Clostridium difficile toxin (C-Diff) Status:Active Other Description:Narcotic Use Status:Active Description:Family spokesperson Additional Notes: CARLOS [phone] BROTHER RYLAND [phone] Status:Active Past Medical History Description:colitis Status:Active Description:mitral valve regurgitation Status:Active Description:gi bleed Status:Active Description:Hypertension (HTN) Status:Active Description:arthritis Status:Active Description:herniated disc lumbar area Status:Active Description: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 Description:depression Status:Active Description:anxiety Status:Active Description:osteoporosis Status:Active Description:diverticulitis Status:Active Description:umbilical hernia Status:Active Description:UTI Status:Active Description:GERD Status:Active Description:CAD Status:Active Description:Non ST elevation NE Status:Active Description:Coronary atherosclerosis Status:Active Description:Sepsis Status:Active Description:Venous thromboembolism Status:Active Description:Chronic anemia Status:Active Description:Congestive Heart Failure (CHF) Status:Active Past Surgical History Description:cataract Additional Notes:bilateral with lens implant Status:Active Description:bilat knee replacement Status:Active Description:complete hysterectomy Additional Notes:26 years ago Status:Active Description:appendectomy Additional Notes:26 years ago Status:Active Description:Cardiac Catheterization Status:Active Description:CABG (2 vessel) Status:Active REVIEW OF SYSTEMSROS not obtained due to patient's mental status.CONSTITUTIONAL: Negative for: feverCARDIOVASCULAR: Negative for: diaphoresisRESPIRATORY: Negative for: cough, dyspnea and hemoptysisGASTROINTESTINAL: Negative for: diarrhea, nausea and vomiting; hematocheziaGENITOURINARY: Negative for: urgency;NEUROLOGICAL: ( Patient reportedly found on the floor hit her head on theground Small superficial laceration and abrasion earlier Yesterday , SeveralAfter a day progressively worse With Hallucinations sent to the emergency roomafter midnight For evaluation after contacting her primary care physician .) POSITIVE for: altered mental status; PHYSICAL EXAMCONSTITUTIONAL: Appearance: (Patient Was confused Completely disoriented OnlyRecall one time that she hit her head Causing ulceration could not repeat Hersymptoms. She was talking using worse did not make any sense pancreatitisthinks in the air. She was breathing without acute Distress. No tachypnea orhypoxemia. Good skin perfusion.) HENMT: Airway patent, ears with clear tympanic membranes bilaterally. Nasalmucosa clear. Mouth with normal mucosa. Throat has no vesicles, nooropharyngeal exudates and uvula is midline. Face with no lymph nodeenlargement. EYES: Clear bilaterally, pupils equal, round and reactive to light. CARDIOVASCULAR: Normal rate, regular rhythm. Heart sounds S1, S2. No murmurs,rubs or gallops. PMI non-displaced. RESULTS/VITAL SIGNSRESULTS:Recent Lab Results: I have reviewed these laboratory results: Lactate, Level 05-Sep-2017 01:49:00 ResultValueLactate, Level 1.0 Troponin I, Serum 05-Sep-2017 01:49:00 ResultValueTroponin I, Serum 0.02 Urinalysis 05-Sep-2017 01:37:00 ResultValueColor, Urine STRAW Reference Range: STRAW,YELLOWAppearance, Urine CLEARSpecific Max, Urine 1.005pH, Urine 6.0Protein, Urine NEGATIVEGlucose, Urine NEGATIVEBlood, Urine NEGATIVEKetones, Urine NEGATIVEBilirubin, Urine NEGATIVEUrobilinogen, Urine <2.0Nitrite, Urine NEGATIVELeukocyte Esterase, Urine NEGATIVE Complete Blood Count + Differential 05-Sep-2017 01:36:00 ResultValueWhite Blood Cell Count 11.8 HRed Blood Cell Count 2.56 LHGB 8.4 LHCT 25.6 LMCV 100MCHC 32.8PLT 422RDW-CV 15.3 HNeutrophil % 70.6Immature Granulocytes % 0.5Lymphocyte % 21.6Monocyte % 5.9Eosinophil % 1.1Basophil % 0.3Neutrophil Count 8.31 HLymphocyte Count 2.55Monocyte Count 0.70Eosinophil Count 0.13Basophil Count 0.04 Comprehensive Metabolic Panel 05-Sep-2017 01:36:00 ResultValueGlucose, Serum 94NA 138K 3.4 LCL 99Bicarbonate, Serum 28Anion Gap, Serum 14BUN 16CREAT 0.99GFR-Non 54 AGFR- 65Calcium, Serum 9.2ALB 3.3 LALKP 95T Pro 6.9T Bili 0.4Alanine Aminotransferase, Serum 16Aspartate Transaminase, Serum 19 PT + INR, Plasma 05-Sep-2017 01:36:00 ResultValueProthrombin Time, Plasma 11.5International Normalized Ratio, Plasma 1.1 RBC Morphology 05-Sep-2017 01:36:00 ResultValueRed Blood Cell Morphology See BelowHypochromasia Mild Radiology Results: Impression: No acute cardiopulmonary process.Large hiatal hernia. Xray Chest 1 View [Sep 05 2017 2:53AM] Impression: No acute intracranial abnormality. Parenchymal atrophy and chronic small vessel ischemic changes. CT Head without Contrast [Sep 05 2017 2:52AM] VITAL SIGNS: T PRBP SpO2O2(LPM) %FiO2 [id number] 02:42:[id number]/62 92 room air, no [id number]-007 8 00:33:00-36.17141877/75 94 room air, no respiratorysupport EKG INTERPRETATION:EKG Date/Time: 05-Sep-2017 00:34Rate: 83Comments: Sinus rhythm rate of 83. No acute ST segment elevation. Rightbundle-branch block. T-wave abnormality involving the inferior leads, inferiorischemia. Portable. Abnormal EKG. No prior EKG to compare to MEDICAL DECISION MAKING/ED COURSEMDM/ED COURSE: Patient was sent to the emergency room by Dr. Renee with advised to transferpatient to use at [facility].Also discussed case with Anyi Gusman he want patient to be transferred to [facility]. Dr. Michelle accepted patient transferred to at [facility]. Shows power of deputy commonwealth's attorney was not available and I will, Patient'sBrother Came andPatient Transfer Paperwork and Agree with the Transfer to the [facility]. CLINICAL IMPRESSIONDiagnosis/Annotati on: ED Dx Name:Altered mental status Code:R41.82 Name:Closed head injury Code:S09.90XA Name:Fall at [facility] Code:W19.XXXA Dispostion: transferred Time of First Call for Transfer: 04:00[facility]: [facility]20Consulting Physician Name: Dr. Miguel Angel M.D.Transfer Accepted: yes ATTESTATION CRITICAL CARE TIMEIs this a critically ill patient?: no Electronic Signatures:Maria A Vance) (Signed 05-Sep-2017 04:43)Authored: Provider Note - ED v2 Last Updated: 05-Sep-2017 04:43 by Maria A Vance) References:1. Data Referenced From Triage - ED 09/05/2017 12:33 AM Normal [facility] RED CELL MORPHOLOGYon 2017 HYPOCHROMASIA Mild Normal [facility] Comment on above: Performed By: #### L IPID ####[facility] [place] [address] RBC morphology finding Nom (Bld) See Below Normal [facility] Comment on above: Performed By: #### L IPID ####[facility] [place] [address] TROPONIN Ion 09-05-2017 Troponin I.cardiac mass conc 0.02 ng/mL Normal 0.00 - 0.03 [facility] Comment on above: Result Comment: LESS THAN 0.04 NG/ML: NEGATIVEREPEAT TESTING IN FOUR TO SIX HOURSIF CLINICALLY INDICATED.0.04 - 0.5 NG/ML: CONSISTENT WITH POSSIBLECARDIAC DAMAGE AND POSSIBLE INCREASEDCLINICAL RISK.SERIAL MEASUREMENTS MAY HELP ASSESS EXTENT OFMYOCARDIAL DAMAGE.>0.5 NG/ML: CONSISTENT WITH CARDIAC DAMAGE,INCREASED CLINICAL RISK AND MYOCARDIALINFARCTION. SERIAL MEASUREMENTS MAY HELPASSESS EXTENT OF MYOCARDIAL DAMAGE..Note: Troponin I testing is performed using differenttesting methodology at [facility] than at [facility]. Direct result comparisons should onlybe made within the same method. Performed By: #### T ROP2 ####[address] [address] Troponin I.cardiac mass conc 0.02 ng/mL Normal 0.00 - 0.03 [facility] Comment on above: Result Comment: LESS THAN 0.04 NG/ML: NEGATIVEREPEAT TESTING IN FOUR TO SIX HOURSIF CLINICALLY INDICATED.0.04 - 0.5 NG/ML: CONSISTENT WITH POSSIBLECARDIAC DAMAGE AND POSSIBLE INCREASEDCLINICAL RISK.SERIAL MEASUREMENTS MAY HELP ASSESS EXTENT OFMYOCARDIAL DAMAGE.>0.5 NG/ML: CONSISTENT WITH CARDIAC DAMAGE,INCREASED CLINICAL RISK AND MYOCARDIALINFARCTION. SERIAL MEASUREMENTS MAY HELPASSESS EXTENT OF MYOCARDIAL DAMAGE..Note: Troponin I testing is performed using differenttesting methodology at [facility] than at [facility]. Direct result comparisons should onlybe made within the same method. Performed By: #### T ROP2 ####[address] [address] Troponin I.cardiac mass conc 0.02 ng/mL Normal 0.00 - 0.03 [facility] Comment on above: Result Comment: LESS THAN 0.04 NG/ML: NEGATIVEREPEAT TESTING IN FOUR TO SIX HOURSIF CLINICALLY INDICATED.0.04 - 0.5 NG/ML: CONSISTENT WITH POSSIBLECARDIAC DAMAGE AND POSSIBLE INCREASEDCLINICAL RISK.SERIAL MEASUREMENTS MAY HELP ASSESS EXTENT OFMYOCARDIAL DAMAGE.>0.5 NG/ML: CONSISTENT WITH CARDIAC DAMAGE,INCREASED CLINICAL RISK AND MYOCARDIALINFARCTION. SERIAL MEASUREMENTS MAY HELPASSESS EXTENT OF MYOCARDIAL DAMAGE..Note: Troponin I testing is performed using differenttesting methodology at [facility] than at [facility]. Direct result comparisons should onlybe made within the same method. Performed By: #### L IPID ####[facility] [place] [address] Triage - EDon 09-05-2017 Triage - ED Quick Triage:The pat ient and/or guardian verbally acknowledges placement for services intothe following (when Urgent Care Service hours are operating):emergencydepartme nt Pain:Pain Rating (0-10): Rest3 Chart Review: CHIEF COMPLAINT KATHERINE JUDGE is a Female patient with a chief complaint of altered mentalstatus.Onset of the Complaint: [id number] Date/Time: 05-Sep-2017 00:19Vital Signs:Temperature: 97.6F ( 36.4C) taken foreheadBlood Pressure: 148/75 Mean:Heart Rate: 85Respiratory Rate: 20Pulse Oximetry: 94% Height: 5 feet 4.00 inches. 162.5 CMWeight: 120.0 pounds. Calculated 54.4 kg.Calculated BMI (kg/m2): 20.601 Calculated BSA (m2) 1.57 Cough lasting greater than 3 weeks: noPatient immunocompromised related to: N/ATravel outside of [place]: noAllergies: yesOB/DIRECTOR ZONE History: menopausePatient has suicidal thoughts: unable to assessPatient has homicidal thoughts: unable to assessESI: 2 Last Known Well: unknown PAIN Pain Scale Used: SANDOVAL ARRIVAL INFORMATION Means of Arrival: stretcher Mode of Arrival: ambulance Agency: [facility] ArrivalFrom: [facility]dc facility Accompanied By: EMT/paramedicLanguage:Spoken Language Preferred: Sudanese Reading Language Preferred: Sudanese PRIMARY ASSESSMENT DisabilityDisability/AVPU: KATHERINE is confusedLevel of Consciousness: disoriented to self PAST MEDICAL HISTORY Immunization History:Last Known Tetanus Immunization: Unknown TRAVEL HISTORY Travel Exposure History: NO travel to International locations in the past 30days Past Medical History:? Past Medical History Reviewedyes Electronic Signatures:Nicol Diaz (RN) (Signed 05-Sep-2017 00:56)Authored: Triage, Past Medical History Last Updated: 05-Sep-2017 00:56 by Nicol Diaz (RN) Normal [facility] URINALYSISon 09-05-2017 APPEARANCE CLEAR Normal CLEAR [facility] Comment on above: Performed By: #### L IPID ####[facility] [place] [address] BILIRUBIN Negative Normal NEGATIVE [facility] Comment on above: Performed By: #### L IPID ####[id number] [place] [address] BLOOD Negative Normal NEGATIVE [facility] Comment on above: Performed By: #### L IPID ####[id number] [place] [address] COLOR STRAW Normal STRAW,YELL OW [facility] Comment on above: Performed By: #### L IPID ####[id number] [place] [address] GLUCOSE Negative Normal NEGATIVE [facility] Comment on above: Performed By: #### L IPID ####[id number] [place] [address] KETONES Negative Normal NEGATIVE [facility] Comment on above: Performed By: #### L IPID ####[id number] [place] [address] LEUKOCYTE ESTERASE Negative Normal NEGATIVE [facility] Comment on above: Performed By: #### L IPID ####[address] [place] [address] NITRITE Negative Normal NEGATIVE [facility] Comment on above: Performed By: #### L IPID ####[id number] [place] [address] pH 6.0 Normal 5.0 - 8.0 [facility] Comment on above: Performed By: #### L IPID ####[id number] [place] [address] Protein mass conc Negative Normal NEGATIVE [facility] Comment on above: Performed By: #### L IPID ####[id number] [place] [address] SPECIFIC GRAVITY 1.005 Normal 1.005 - 1.035 [facility] Comment on above: Performed By: #### L IPID ####[address] [address] UROBILINOGEN <2.0 Normal 0.0 - 1.9 [facility] Comment on above: Performed By: #### L IPID ####[address] [address] URINE CULTURE,BACTERIALon URINE CULTURE,BACTERIAL PATIENT: KATHERINE JUDGE LOCATION: [address]#: [id number] : [birth year] AGE: SEX: F ORDERED BY: LOTUS VANCE: URINE COLLECTED: 09/05/17 01:37ANTIBIOTICS AT ESDRAS.: RECEIVED : 09/05/17 17:28SITE: Straight Cath R E S U L T S URINE CULTURE,BACTERIAL FINAL 09/06/17 09:42 NO GROWTH Normal [facility] Comment on above: Performed By: #### L IPID ####[id number] [place] [address] Daily Progress Note-Infectio us Diseaseon 09-01-2017 Protein mass conc Service: Infectious Disease Subjective Data:KATHERINE JUDGE is a 82 year old Female who is Hospital Day # 7. no fever, no emesis, no diarrhea, no rash. Overnight Events: Patient had an uneventful night. Objective Data: Objective Information:T [id number]/769 4%Date/Time09/01 4: 4: 4: 4: 4:36Range(36.5C - 37.7C ) (72 - 83 ) (16 - 18 ) (134 - 150 )/ (60 - 77 ) (94%- 97% )Highest temp of 37.7 C was recorded at 08/31 14:41 Pain at Rest reported at 09/01 9:16: 7 Physical Exam: Constitutional: awake/alert/oriented x3, no distress, alert and cooperativeEyes: PERRL, EOMI, clear scleraENMT: mucous membranes moist, no apparent injury, no lesions seenHead/Neck: Neck supple, no apparent injury, thyroid without mass or tenderness,No JVD, trachea midline, no bruitsRespiratory/Thorax: Patent airways, CTAB, normal breath sounds with good chestexpansion, thorax symmetricCardiovascular: Regular, rate and rhythm, no murmurs, 2+ equal pulses of theextremities, normal S 1and S 2Gastrointestinal: Nondistended, soft, non-tender, no rebound tenderness orguarding, no masses palpable, no organomegaly, +BS, no bruitsExtremities: no cellulitisSkin: Warm and dry, no lesions, no rashes Medication: Medications: CARDIOVASCULAR AGENTS: 1. Lisinopril: 10 mg Oral Daily2. Isosorbide Mononitrate Extended Release: 60 mg Oral At Bedtime3. Metoprolol Tartrate: 50 mg Oral Every 12 Hours CENTRAL NERVOUS SYSTEM AGENTS: 1. oxyCODONE 5 mg - Acetaminophen 325 m tablet(s) Oral Every 4 HoursPRN2. Ondansetron Injectable: 4 mg IntraVenous Push Every 4 Hours PRN GASTROINTESTINAL AGENTS: 1. Polyethylene Glycol: 17 gram(s) Oral Daily2. Pantoprazole: 40 mg Oral Daily TOPICAL AGENTS: 1. Lidocaine 5% TransDermal: 1 patch TransDermal Every 24 Hours Recent Lab Results: Results: I have reviewed these laboratory results: Basic Metabolic Panel [[id number] 08:15:00]. Radiology Results: Results:Xray Abdomen AP View [Aug 27 2017 9:39AM] Assessment and Plan:Assessment: 1. Abdominal pain / possble bowel obstruction, tolerating oral intake 2. Hx of C. 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 Pyuria, asymptomatic Recommendations : No need for antibiotics Electronic Signatures:Nela Collado) (Signed 01-Sep-2017 11:23)Authored: Service, Assessment/Plan Review, Subjective Data, Objective Data,Assessment and Plan, Signature/Cosignature/Attest ation Last Updated: 01-Sep-2017 11:23 by Nela Collado) [facility] Daily Progress Note-Medicine on 09-01-2017 Protein mass conc Service: Medicine Rick bjective Data:KATHERINE JUDGE is a 82 year old Female who is Hospital Day # 7. Katherine is in doing really well. She is in high spirits, looking forward to bed/c. Her appetite has not picked up yet. Overnight Events: Patient had an uneventful night. Objective Data: Objective Information:T [id number]/769 4%Date/Time09/01 4: 4: 4: 4: 4:36Range(36.5C - 37.7C ) (72 - 83 ) (16 - 18 ) (134 - 150 )/ (60 - 77 ) (94%- 97% )Highest temp of 37.7 C was recorded at 08/31 14:41 Pain at Rest reported at 09/01 9:16: 7 Physical Exam: Constitutional: Frail malnourished elderly woman in [facility]: PERLENMT: mucous membranes moist, no apparent injury, no lesions seenHead/Neck: Neck supple, no apparent injury, thyroid without mass or tenderness,No JVD, trachea midline, no bruitsRespiratory/Thorax: Patent airways, CTAB, normal breath sounds with good chestexpansion, thorax symmetricCardiovascular: Regular, rate and rhythm, no murmurs, 2+ equal pulses of theextremities, normal S 1and S 2Gastrointestinal: nondistended, non tender abdomen. BS +Extremities: no edemaNeurological: alert and oriented x3, intact senses, motor, response andreflexes, normal strengthPsychological: Appropriate mood and behaviorSkin: no rashes Medication: Medications: CARDIOVASCULAR AGENTS: 1. Lisinopril: 10 mg Oral Daily2. Isosorbide Mononitrate Extended Release: 60 mg Oral At Bedtime3. Metoprolol Tartrate: 50 mg Oral Every 12 Hours CENTRAL NERVOUS SYSTEM AGENTS: 1. oxyCODONE 5 mg - Acetaminophen 325 m tablet(s) Oral Every 4 HoursPRN2. Ondansetron Injectable: 4 mg IntraVenous Push Every 4 Hours PRN GASTROINTESTINAL AGENTS: 1. Polyethylene Glycol: 17 gram(s) Oral Daily2. Pantoprazole: 40 mg Oral Daily TOPICAL AGENTS: 1. Lidocaine 5% TransDermal: 1 patch TransDermal Every 24 Hours Recent Lab Results: Results:I have reviewed these laboratory results: Basic Metabolic Panel Trending View [id number] 08:15:00 30-Aug-2017 05:25:00Glucose, [id number] H 111 MDI365 139K4.0 3.3 LIP422 107Bicarbonate, Serum26 27Anion Gap, Serum9 L 8 LBUN5 L 32KZSBU5.54 0.49 LGFR-Non >60 >60GFR->60 >60Calcium, Serum8.4 L 8.1 L I have reviewed these laboratory results: Basic Metabolic Panel 31-Aug-2017 08:15:00 ResultValueGlucose, Serum 113 HNA 137K 4.0CL 106Bicarbonate, Serum 26Anion Gap, Serum 9 LBUN 5 LCREAT 0.54GFR-Non >60GFR- >60Calcium, Serum 8.4 L Assessment and Plan: Admitting Dx:Abdominal pain: Entered Date: 26-Aug-2017 03:10 Additional Dx:Essential hypertension: Entered Date: 26-Aug-2017 09:59CAD (coronary artery disease): Entered Date: 26-Aug-2017 09:59Hypercalcemia: Entered Date: 27-Jul-2017 07:35Encephalopathy: Entered Date: 26-Jul-2017 15:54Elevated serum creatinine: Entered Date: 16-Jul-2017 07:24Cecal volvulus: Entered Date: 16-Jul-2017 07:22Severe protein-calorie malnutrition (Carrera: less than 60% of standard weight):Entered Date: 12-Jul-2017 07:46Confusion and disorientation: Entered Date: 12-Jul-2017 07:43Clostridium difficile colitis: Entered Date: 10-Jul-2017 12:52Hypomagnesemia: Entered Date: 09-Jul-2017 14: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: EnteredDate: 09-Jul-2017 09:28Acute on chronic diastolic (congestive) heart failure: Entered Date:09-Jul-2017 09:28Hypokalemia: Entered Date: 08-Jul-2017 12:37Pulmonary edema: Entered Date: 06-Jul-2017 07:40Tachypnea: Entered Date: 06-Jul-2017 07:40S/P right hemicolectomy: Entered Date: 03-Jul-2017 00:33Small bowel obstruction: Entered Date: 02-Jul-2017 20:32NSTEMI (non-ST elevated myocardial infarction): Entered Date: 71-[id number]-[id number]:25UTI (urinary tract infection), bacterial: Entered Date: 27-Dec-2016 20:58Anemia: Entered Date: 26-Dec-2016 19:03Lactic acidosis: Entered Date: 26-Dec-2016 19:03Leukocytosis, unspecified type: Entered Date: 26-Dec-2016 19:02Hypotension (arterial): Entered Date: 26-Dec-2016 19:02Pneumonia of right lower lobe due to infectious organism: Entered Date:26-Dec-2016 19:02Acute encephalopathy: Entered Date: 15-Jun-2014 11:11 Medical History:Failure to thrive: Entered Date: 28-Jul-2017 20:32Gastrocutaneous fistula: Entered Date: 05-Apr-2012 07:05Constipation: Entered Date: 04-Apr-2012 07:07Ileus: Entered Date: 14-Mar-2012 08:35Exploratory laparotomy: Entered Date: 09-Mar-2012 13:08Anemia due to unknown or multiple mechanisms (disorder): Entered Date:08-Mar-2012 06:47Transient ischemic colitis (disorder): Entered Date: 07-Mar-2012 07:55Protein malnutrition unspecified (disorder): Entered Date: 18-Feb-2012 07:07Hypokalemia (disorder): Entered Date: 15-Feb-2012 08:22Magnesium deficiency: Entered Date: 15-Feb-2012 08:22Colitis (disorder): Entered Date: 12-Feb-2012 06:59Small bowel obstruction (disorder): Entered Date: 11-Feb-2012 19:00Acute bowel obstruction: Onset Date: 11-Feb-2012, Entered Date: [id number]-[id number] abdominal pain (finding): Entered Date: 11-Feb-2012 18:56 Chronic:Fluid overload pulmonary edema: Entered Date: 29-Aug-2012 07:41Clostridium difficile infection: Entered Date: 28-Aug-2012 07:25Chest pain: Entered Date: 28-Aug-2012 07:24Diarrhea: Entered Date: 25-Aug-2012 20:22 Other Dx/Proc:CHEST PAIN: Entered Date: 01-Sep-2012 08:07Unstable angina/chest pain: Entered Date: 28-Aug-2012 07:28Gastrointestinal bleeding: Entered Date: 25-Aug-2012 13:511 Colitis, 2 Abdomen Pain 3 Cholelithiasis: Onset Date: 03-Apr-2012, EnteredDate: 03-Apr-2012 01:45Heart failure: Entered Date: 12-Mar-2012 08:44PNEUMONIA: Entered Date: 11-Mar-2012 20:33Diabetes mellitus: Entered Date: 31-Dec-2011 14:04Abdominal pain: Entered Date: 28-Dec-2011 20:11Electrolyte imbalance: Entered Date: 25-Dec-2009 11:50Post CABG: Entered Date: 25-Dec-2009 11:50Coronary artery disease: Entered Date: 14-Dec-2009 11:48Non ST Elevation Myocardial Infarction (NSTEMI): Entered Date: [id number] angioplasty/stent (PCI): Entered Date: 12-Dec-2009 15:30Dyspnea: Entered Date: 12-Dec-2009 12:38Coronary atherosclerosis: Entered Date: 12-Dec-2009 12:38Left heart catheterization: Entered Date: 12-Dec-2009 12:36Hypotension: Entered Date: 09-Sep-2009 15:03Sepsis: Entered Date: 01-Aug-2009 02:21Venous thromboembolism: Entered Date: 31-Jul-2009 14:57 Assessment:82-year-old woman with history of multiple abdominal surgeries who was in herusual state of health when she developed nausea later followed by vomiting,abdominal distention and abdominal pain. She denied fever, chills, sweats. Nodiarrhea. No melena or hematochezia. She presented to [facility] and CT of her abdomen and pelvis was read as showing findings consistentwith small bowel obstruction. [facility] We have been consulted to help with the management of hermedical problems which are as follows: hypertension, hyperlipidemia, coronaryartery disease status post CABG, depression, anxiety, gastroesophageal refluxdisease, and gout SBO, resolved. H/o multiple abdominal surgeries- on soft diet. HTN- restarted home meds, BP is controlled CAD/CABG- stable on meds. Cardio on consult Depression- in much better mood today DVT prx- SCDs Per Dr Tapia the plan is to d/c her back to [facility] today Nutrition Diagnosis:? Nutrition DiagnosisAgree with dietitian?s assessment and diagnoses as stated.Severe protein calorie malnutrition related to inadequate oral intake andunintentional weight loss as evidence by 13% weight loss in 6 months, ptreporting decreased oral intake x several months, muscle/ fat depletion noted,and documented NPO/decreased oral intake x 5 days since admission.. Electronic Signatures:Brionna Llanes) (Signed 01-Sep-2017 12:48)Authored: Service, Subjective Data, Objective Data, Assessment and Plan,Signature/Cosignature/A ttestation Last Updated: 01-Sep-2017 12:48 by Brionna Llanes) [facility] Daily Progress Note-Melly merino 09-01-2017 Protein mass conc Service: Surgery Sub jective Data:KATHREINE JUDGE is a 82 year old Female who is Hospital Day # 7. Doing well. Urinating and moving bowels, taking miralax daily.Taking PO without problem. Objective Data: Objective Information:T [id number]/769 4%Date/Time09/01 4: 4: 4: 4: 4:36Range(36.5C - 37.7C ) (72 - 83 ) (16 - 18 ) (134 - 150 )/ (60 - 77 ) (94%- 97% )Highest temp of 37.7 C was recorded at 08/31 14:41 Pain at Rest reported at 09/01 9:16: 7 Physical Exam: Constitutional: frail, elderly female. NAD. Alert and oriented.Eyes: PERRL, EOMI, clear scleraENMT: mucous membranes moist, no apparent injury, no lesions seenRespiratory/Thorax: LCTA. non-labored.Cardiovascular: Heart RRRGastrointestinal: Nondistended, soft, non-tender, no rebound tenderness orguarding, no masses palpable, no organomegaly, +BS, no bruitsReporting some right sided flank pain. No change with movement, no change witheating.Musculoskeletal: ROM intact, no joint swelling, normal strengthExtremities: normal extremities, no cyanosis edema, contusions or wounds, noclubbingPsychological: Appropriate mood and behaviorSkin: Warm and dry, no lesions, no rashes Medication: Medications: Continuous Medications ----No continuous medications are active Scheduled Medications ---- 1. Isosorbide Mononitrate Extended Release: 60 mg Oral At Bedtime2. Lidocaine 5% TransDermal: 1 patch TransDermal Every 24 Hours3. Lisinopril: 10 mg Oral Daily4. Metoprolol Tartrate: 50 mg Oral Every 12 Hours5. Pantoprazole: 40 mg Oral Daily6. Polyethylene Glycol: 17 gram(s) Oral Daily PRN Medications ---- 1. Ondansetron Injectable: 4 mg IntraVenous Push Every 4 Hours2. oxyCODONE 5 mg - Acetaminophen 325 m tablet(s) Oral Every 4 Hours Recent Lab Results: Results: I have reviewed these laboratory results: Basic Metabolic Panel 31-Aug-2017 08:15:00 ResultValueGlucose, Serum 113 HNA 137K 4.0CL 106Bicarbonate, Serum 26Anion Gap, Serum 9 LBUN 5 LCREAT 0.54GFR-Non >60GFR- >60Calcium, Serum 8.4 L Assessment and Plan: Admitting Dx:Abdominal pain: Entered Date: 26-Aug-2017 03:10 Additional Dx:Essential hypertension: Entered Date: 26-Aug-2017 09:59CAD (coronary artery disease): Entered Date: 26-Aug-2017 09:59Hypercalcemia: Entered Date: 27-Jul-2017 07:35Encephalopathy: Entered Date: 26-Jul-2017 15:54Elevated serum creatinine: Entered Date: 16-Jul-2017 07:24Cecal volvulus: Entered Date: 16-Jul-2017 07:22Severe protein-calorie malnutrition (Carrera: less than 60% of standard weight):Entered Date: 12-Jul-2017 07:46Confusion and disorientation: Entered Date: 12-Jul-2017 07:43Clostridium difficile colitis: Entered Date: 10-Jul-2017 12:52Hypomagnesemia: Entered Date: 09-Jul-2017 14: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: EnteredDate: 09-Jul-2017 09:28Acute on chronic diastolic (congestive) heart failure: Entered Date:09-Jul-2017 09:28Hypokalemia: Entered Date: 08-Jul-2017 12:37Pulmonary edema: Entered Date: 06-Jul-2017 07:40Tachypnea: Entered Date: 06-Jul-2017 07:40S/P right hemicolectomy: Entered Date: 03-Jul-2017 00:33Small bowel obstruction: Entered Date: 02-Jul-2017 20:32NSTEMI (non-ST elevated myocardial infarction): Entered Date: 28-[id number]-[id number]:25UTI (urinary tract infection), bacterial: Entered Date: 27-Dec-2016 20:58Anemia: Entered Date: 26-Dec-2016 19:03Lactic acidosis: Entered Date: 26-Dec-2016 19:03Leukocytosis, unspecified type: Entered Date: 26-Dec-2016 19:02Hypotension (arterial): Entered Date: 26-Dec-2016 19:02Pneumonia of right lower lobe due to infectious organism: Entered Date:26-Dec-2016 19:02Acute encephalopathy: Entered Date: 15-Jun-2014 11:11 Medical History:Failure to thrive: Entered Date: 28-Jul-2017 20:32Gastrocutaneous fistula: Entered Date: 05-Apr-2012 07:05Constipation: Entered Date: 04-Apr-2012 07:07Ileus: Entered Date: 14-Mar-2012 08:35Exploratory laparotomy: Entered Date: 09-Mar-2012 13:08Anemia due to unknown or multiple mechanisms (disorder): Entered Date:08-Mar-2012 06:47Transient ischemic colitis (disorder): Entered Date: 07-Mar-2012 07:55Protein malnutrition unspecified (disorder): Entered Date: 18-Feb-2012 07:07Hypokalemia (disorder): Entered Date: 15-Feb-2012 08:22Magnesium deficiency: Entered Date: 15-Feb-2012 08:22Colitis (disorder): Entered Date: 12-Feb-2012 06:59Small bowel obstruction (disorder): Entered Date: 11-Feb-2012 19:00Acute bowel obstruction: Onset Date: 11-Feb-2012, Entered Date: [id number] abdominal pain (finding): Entered Date: 11-Feb-2012 18:56 Chronic:Fluid overload pulmonary edema: Entered Date: 29-Aug-2012 07:41Clostridium difficile infection: Entered Date: 28-Aug-2012 07:25Chest pain: Entered Date: 28-Aug-2012 07:24Diarrhea: Entered Date: 25-Aug-2012 20:22 Other Dx/Proc:CHEST PAIN: Entered Date: 01-Sep-2012 08:07Unstable angina/chest pain: Entered Date: 28-Aug-2012 07:28Gastrointestinal bleeding: Entered Date: 25-Aug-2012 13:511 Colitis, 2 Abdomen Pain 3 Cholelithiasis: Onset Date: 03-Apr-2012, EnteredDate: 03-Apr-2012 01:45Heart failure: Entered Date: 12-Mar-2012 08:44PNEUMONIA: Entered Date: 11-Mar-2012 20:33Diabetes mellitus: Entered Date: 31-Dec-2011 14:04Abdominal pain: Entered Date: 28-Dec-2011 20:11Electrolyte imbalance: Entered Date: 25-Dec-2009 11:50Post CABG: Entered Date: 25-Dec-2009 11:50Coronary artery disease: Entered Date: 14-Dec-2009 11:48Non ST Elevation Myocardial Infarction (NSTEMI): Entered Date: 89-[id number]:29Coronary angioplasty/stent (PCI): Entered Date: 12-Dec-2009 15:30Dyspnea: Entered Date: 12-Dec-2009 12:38Coronary atherosclerosis: Entered Date: 12-Dec-2009 12:38Left heart catheterization: Entered Date: 12-Dec-2009 12:36Hypotension: Entered Date: 09-Sep-2009 15:03Sepsis: Entered Date: 01-Aug-2009 02:21Venous thromboembolism: Entered Date: 31-Jul-2009 14:57 Assessment:Okay for discharge back to [facility].Continue miralax daily.Recommend heating pad to right side to address discomfort. Signature/Cosignature/Attest ation:Attending Only - Shared Visit with Advanced Practice ProviderThis is a sharedvisit. I have reviewed the Advanced Practice Provider?s encounter note,approve the Advanced Practice Provider?s documentation, and provide thefollowing additional information from my personal encounter.Comments/ Additional Findingspartial sbo now resolved Electronic Signatures:Vanessa Rodarte (DANCE ARTIST-COMMUNITY LIVING SPECIALIST) (Signed 01-Sep-2017 13:31)Authored: Service, Subjective Data, Objective Data, Assessment and Plan,Signature/Cosignature/A ttestationJessenia Tapia) (Signed 01-Sep-2017 16:03)Authored: Signature/Cosignature/Attest ation Last Updated: 01-Sep-2017 16:03 by Jessenia Tapia) [facility] Discharge [id number] 07-24-2 018 Protein mass conc Discharge Orders:Ant icipated Discharge Date:? Anticipated Discharge [id number] Problem List: Admitting Dx:? Abdominal pain: Catalog Name: Unspecified abdominal pain Additional Dx:? Essential hypertension: Catalog Name: Essential (primary) hypertension? CAD (coronary artery disease): Catalog Name: Atherosclerotic heart diseaseof [place] coronary artery without angina pectoris? Hypercalcemia: Catalog Name: Hypercalcemia? Encephalopathy: Catalog Name: Encephalopathy, unspecified? Elevated serum creatinine: Catalog Name: Other specified abnormal findingsof blood chemistry? Cecal volvulus: Catalog Name: Volvulus? Severe protein-calorie malnutrition (Carrera: less than 60% of standardweight): Catalog Name: Unspecified severe protein-calorie malnutrition? Confusion and disorientation: Catalog Name: Mental disorder, not otherwisespecified? Clostridium difficile colitis: Catalog Name: Enterocolitis due toClostridium difficile, not specified as recurrent? Hypomagnesemia: Catalog Name: Hypomagnesemia? 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 Acute on chronic diastolic (congestive) heart failure: Catalog Name: Acuteon chronic diastolic (congestive) heart failure? Hypokalemia: Catalog Name: Hypokalemia? Pulmonary edema: Catalog Name: Chronic pulmonary edema? Tachypnea: Catalog Name: Tachypnea, not elsewhere classified? S/P right hemicolectomy: Catalog Name: Acquired absence of other specifiedparts of digestive tract? Small bowel obstruction: Catalog Name: Unspecified intestinal obstruction,unspecified as to partial versus complete obstruction? NSTEMI (non-ST elevated myocardial infarction): Catalog Name: Non-STelevation (NSTEMI) myocardial infarction? UTI (urinary tract infection), bacterial: Catalog Name: Urinary tractinfection, site not specified? Anemia: Catalog Name: Anemia, unspecified? Lactic acidosis: Catalog Name: Acidosis? Leukocytosis, unspecified type: Catalog Name: Elevated white blood cellcount, unspecified? Hypotension (arterial): Catalog Name: Hypotension, unspecified? Pneumonia of right lower lobe due to infectious organism: Catalog Name:Lobar pneumonia, unspecified organism? Acute encephalopathy: Catalog Name: Delirium Medical History:? Failure to thrive: Catalog Name: Failure to thrive (child)? 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 Constipation: Catalog Name: Constipation? Ileus: Catalog Name: Ileus? Exploratory laparotomy: Catalog Name: Exploratory laparotomy? Anemia due to unknown or multiple mechanisms (disorder): Catalog Name:Anemia due to unknown or multiple mechanisms? Transient ischemic colitis (disorder): Catalog Name: Transient ischemiccolitis? Protein malnutrition unspecified (disorder): Catalog Name: Proteinmalnutrition unspecified? Hypokalemia (disorder): Catalog Name: Hypokalemia? Magnesium deficiency: Catalog Name: Magnesium deficiency? Colitis (disorder): Catalog Name: Colitis? Small bowel obstruction (disorder): Catalog Name: Small bowel obstruction? Acute bowel obstruction: Onset Date: 11-Feb-2012, Catalog Name: Acute bowelobstruction? Generalized abdominal pain (finding): Catalog Name: Generalized abdominalpain Prelim Disch Dx:? TIA (transient ischemic attack): Catalog Name: Transient ischemic attack(disorder)? TIA (transient ischemic attack): Catalog Name: Transient ischemic attack(disorder)? Patient post percutaneous transluminal coronary angioplasty (finding):Catalog Name: Patient post percutaneous transluminal coronary angioplasty? Coronary artery disease: Catalog Name: Coronary artery disease? Congestive heart failure: Catalog Name: Congestive heart failure (disorder)? Small bowel obstruction NOS (disorder): Catalog Name: Small bowelobstruction NOS? Patient post percutaneous transluminal coronary angioplasty: Catalog Name:Patient post percutaneous transluminal coronary angioplasty? Dyspnea on exertion: Catalog Name: Dyspnea on exertion? Coronary arteriosclerosis: Catalog Name: Coronary arteriosclerosis? Central chest pain: Catalog Name: Central chest pain? Chronic anemia: Catalog Name: Chronic anemia Chronic:? Fluid overload pulmonary edema: Catalog Name: Fluid overload pulmonary edema(disorder)? Clostridium difficile infection: Catalog Name: Clostridium difficileinfection (disorder)? Chest pain: Catalog Name: Chest pain? Diarrhea: Catalog Name: Diarrhea Other Dx/Proc:? CHEST PAIN: Catalog Name: CHEST PAIN, Description: CHEST PAIN? Unstable angina/chest pain: Catalog Name: Unstable angina/chest pain,Description: Unstable angina/chest pain? Gastrointestinal bleeding: Catalog Name: Gastrointestinal bleeding,Description: Gastrointestinal bleeding? 1 Colitis, 2 Abdomen Pain 3 Cholelithiasis: Onset Date: 03-Apr-2012? Heart failure: Catalog Name: Heart failure, Description: Heart failure? PNEUMONIA: Catalog Name: PNEUMONIA? Diabetes mellitus: Catalog Name: Diabetes mellitus, Description: Diabetesmellitus? Abdominal pain: Catalog Name: Abdominal pain, Description: Abdominal pain? Electrolyte imbalance: Catalog Name: Electrolyte imbalance, Description:Electrolyte imbalance? Post CABG: Catalog Name: Post CABG, Description: Post CABG? Coronary artery disease: Catalog Name: Coronary artery disease, Description:Coronary artery disease? Non ST Elevation Myocardial Infarction (NSTEMI): Catalog Name: Non STElevation Myocardial Infarction (NSTEMI), Description: Non ST ElevationMyocardial Infarction (NSTEMI)? Coronary angioplasty/stent (PCI): Catalog Name: Coronary angioplasty/stent(PCI), Description: Coronary angioplasty/stent (PCI)? Dyspnea: Catalog Name: Dyspnea, Description: Dyspnea? Coronary atherosclerosis: Catalog Name: Coronary atherosclerosis,Description: Coronary atherosclerosis? Left heart catheterization: Catalog Name: Left heart catheterization,Description: Left heart catheterization? Hypotension: Catalog Name: Hypotension? Sepsis: Catalog Name: Sepsis, Description: Sepsis? Venous thromboembolism: Catalog Name: Venous thromboembolism, Description:Venous thromboembolism Significant Events:CABG (2 vessel): Past Surgical History, [id number] Catheterization: Past Surgical Historycataract: Past Surgical History, bilateral with lens implantappendectomy: Past Surgical History, 27 years agocomplete hysterectomy: Past Surgical History, 27 years agobilat knee replacement: Past Surgical HistoryCongestive Heart Failure (CHF): Past Medical HistoryChronic anemia: Past Medical HistoryVenous thromboembolism: Past Medical HistorySepsis: Past Medical HistoryCoronary atherosclerosis: Past Medical HistoryNon ST elevation NE: Past Medical History, [id number]: Past Medical HistoryGERD: Past Medical HistoryUTI: Past Medical Historyumbilical hernia: Past Medical Historydiverticulitis: Past Medical Historyosteoporosis: Past Medical Historyanxiety: Past Medical Historydepression: Past Medical Historypost shingles neuropathy: Past Medical Historyhypercholesterolemia: Past Medical Historyherniated disc lumbar area: Past Medical Historyarthritis: Past Medical HistoryHypertension (HTN): Past Medical Historygi bleed: Past Medical Historymitral valve regurgitation: Past Medical Historycolitis: Past Medical HistoryFamily spokesperson: Other, CARLOS [phone] BROTHERPAJOE VELOZ [phone] Use: OtherClostridium difficile toxin (C-Diff): Infection Control, 50-Wlz-1582Omczrxkwzsg difficile toxin (C-Diff): Infection Control, 27-Aug-2012, camewith ( [facility])Methicillin-Resistant Staph Aureus (MRSA): Infection Control, Mar 2012, sputum.Pneumonia- Pneumococcal polysaccharide vaccine-adult: Immunizations.Influenza- Influenza Virus: Immunizations, 05-Ftc-4635Onrtcny Information: Contacts, dontae Schuler [phone] Hospital Providers:Provider RoleProvider Name? ConsultingVentura Thacker? ConsultingDiego Obregon? ConsultingNela Collado? Benjy Pruitt? AttendingJessenia Tapia DNAR:? DNAR Statusnone Activity:activity as tolerated. May shower. Diet:? Diet Consistency/Texturemechanica l soft Labs 1:? Lab Test(s)CBC? Date To Be Drawn1 week from discharge? Call Results [phone] Dr. Tapia? Fax Results [phone] Dr. Tapia Hospital Course (Home Care/Gold Form):Hospital Course:? Hospital Course: include significant abnormal lab valuesadmitted for SBO, treated with medical management.Now on daily miralax. Moving bowels, and eating without problem. Will need protonix x5 weeks d/t black stools.Repeat CBC in 1 week. Gold Form Orders:Care Recommendation:? I recommend that INPATIENT care is required at:Skilled? Estimated Stay30 - 180 days? PrognosisFair? Rehab Potential/FunctionImprove? Provider CertificationI certify that inpatient care is required at the levelrecommended above. To the best of my knowledge, all information provided aboutthe individual is a true and accurate reflection of the individual's condition. Therapy Orders:? Physical Therapy OrdersEval and Treat ([facility]) 3-5times/week Provider Follow Up:? Physician To Follow at Skilled/RehabAttending Physician at Skilled/Rehab Provider FINAL REVIEW of Orders:Final Review:? Final Review of Medication Reconciliation and Orders Completedby Physician? Reviewing ProviderJessenia Tapia MD at 01-Sep-2017 16:04:35 Electronic Signatures:Vanessa Rodarte (DANCE ARTIST-COMMUNITY LIVING SPECIALIST) (Signed 01-Sep-2017 15:55)Authored: Discharge Orders, Hospital Course (Home Care/Gold Form), Gold FormOrders, Provider FINAL REVIEW of Orders, Gold Form - [employer] Floorperson SummaryMaJessenia vasquez) (Signed 01-Sep-2017 16:04)Authored: Provider FINAL REVIEW of Orders Last Updated: 01-Sep-2017 16:04 by Jessenia Tapia) [facility] HCTon 09-01-2017 Hematocrit Auto Volume Fraction (Bld) Canceled [facility] Comment on above: Order Comment: TEST HCT WAS CANCELLED, 09/01/2017 16:14 PATIENT DISCHARGED. Performed By: #### H CT ####[id number] [facility] [place] [id number] HGBon 09-01-2017 Hemoglobin mass conc (Bld) Canceled [facility] Comment on above: Order Comment: TEST HGB WAS CANCELLED, 09/01/2017 16:14 PATIENT DISCHARGED. Performed By: #### H GB ####[facility] [id number] [place] [address] BASIC METABOLIC PANELon - Anion gap 3 molar conc 9 mmol/L Low 10 - 20 [facility] Comment on above: Performed By: #### B MP ####[facility] [id number] [place] [address] Calcium mass conc 8.4 mg/dL Low 8.6 - 10.3 [facility] Comment on above: Performed By: #### B MP ####[facility] [id number] [place] [address] Chloride molar conc 106 mmol/L Normal 98 - 107 [facility] Comment on above: Performed By: #### B MP ####[facility] [id number] [address] [place] [address] Creatinine mass conc 0.54 mg/dL Normal 0.50 - 1.05 [facility] Comment on above: Performed By: #### B MP ####[facility] [id number] [place] [address] GFR- AM. >60 Normal >60 [facility] Comment on above: Result Comment: CALC ULATIONS OF ESTIMATED GFR ARE PERFORMED USING THE MDRD STUDY EQUATION FOR THE IDMS-TRACEABLE CREATININE METHODS. CLIN CHEM 2007;53:766-72 Performed By: #### B MP ####[facility] [id number] [place] [address] GFR-NON AM. >60 Normal >60 [facility] Comment on above: Performed By: #### B MP ####[facility] [id number] [place] [address] Glucose mass conc 113 mg/dL High 74 - 99 [facility] Comment on above: Performed By: #### B MP ####[facility] [id number] [place] [address] HCO3 molar conc (Bld) 26 mmol/L Normal 21 - 32 [facility] Comment on above: Performed By: #### B MP ####[facility] [id number] [place] [address] Potassium molar conc 4.0 mmol/L Normal 3.5 - 5.3 [facility] Comment on above: Performed By: #### B MP ####[facility] [id number] [place] [address] Sodium molar conc 137 mmol/L Normal 136 - 145 [facility] Comment on above: Performed By: #### B MP ####[facility] [id number] [place] [address] Urea nitrogen mass conc 5 mg/dL Low 6 - 23 [facility] Comment on above: Performed By: #### B MP ####[facility] [id number] [place] [address] Daily Progress Note-Infectio us Diseaseon 08-31-2017 Protein mass conc Service: Infectious Disease Subjective Data:KATHERINE JUDGE is a 82 year old Female who is Hospital Day # 6. no fever, no emesis, no diarrhea, no sob, able to eat. Overnight Events: Patient had an uneventful night. Objective Data: Objective Information:T [id number]/649 5%Date/Time08/31 5: 5: 5: 5: 5:00Range(36.5C - 37.4C ) (61 - 101 ) (18 - 18 ) (146 - 160 )/ (64 - 79 )(95% - 96% )Highest temp of 37.4 C was recorded at 08/30 14:04 Pain with Activity reported at 08/30 11:13: 6Pain at Rest reported at 08/31 5:21: 7 Physical Exam: Constitutional: awake/alert/oriented x3, no distress, alert and cooperativeEyes: PERRL, EOMI, clear scleraENMT: mucous membranes moist, no apparent injury, no lesions seenHead/Neck: Neck supple, no apparent injury, thyroid without mass or tenderness,No JVD, trachea midline, no bruitsRespiratory/Thorax: Patent airways, CTAB, normal breath sounds with good chestexpansion, thorax symmetricCardiovascular: Regular, rate and rhythm, no murmurs, 2+ equal pulses of theextremities, normal S 1and S 2Gastrointestinal: Nondistended, soft, non-tender, no rebound tenderness orguarding, no masses palpable, no organomegaly, +BS, no bruitsExtremities: no cellulitisSkin: Warm and dry, no lesions, no rashes Medication: Medications: CARDIOVASCULAR AGENTS: 1. Lisinopril: 10 mg Oral Daily2. Isosorbide Mononitrate Extended Release: 60 mg Oral At Bedtime3. Metoprolol Tartrate: 50 mg Oral Every 12 Hours CENTRAL NERVOUS SYSTEM AGENTS: 1. oxyCODONE 5 mg - Acetaminophen 325 m tablet(s) Oral Every 4 HoursPRN2. Ondansetron Injectable: 4 mg IntraVenous Push Every 4 Hours PRN GASTROINTESTINAL AGENTS: 1. Polyethylene Glycol: 17 gram(s) Oral Daily2. Pantoprazole: 40 mg Oral Daily TOPICAL AGENTS: 1. Lidocaine 5% TransDermal: 1 patch TransDermal Every 24 Hours Recent Lab Results: Results: I have reviewed these laboratory results: Basic Metabolic Panel [ 08:15:00], Basic Metabolic Panel [Drawn 30-Aug-2017 05:25:00],Complete Blood Count [Drawn 30-Aug-2017 05:25:00]. Radiology Results: Results:Xray Abdomen AP View [Aug 27 2017 9:39AM]Xray Chest 1 View [Aug 26 2017 5:18AM] Assessment and Plan:Assessment: 1. Abdominal pain / possble bowel obstruction, tolerating oral intake 2. Hx of C. 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 Pyuria, asymptomatic Recommendations : No need for antibiotics Electronic Signatures:Nela Collado) (Signed 31-Aug-2017 10:30)Authored: Service, Assessment/Plan Review, Subjective Data, Objective Data,Assessment and Plan, Signature/Cosignature/Attest ation Last Updated: 31-Aug-2017 10:30 by Nela Collado) [facility] Daily Progress Note-Medicine on 08-31-2017 Protein mass conc Service: Medicine Rick bjective Data:KATHERINE JUDGE is a 82 year old Female who is Hospital Day # 6. Katherine is in doing really well. She is in high spirits, looking forward to bed/c. Her appetite has not picked up yet. Overnight Events: Patient had an uneventful night. Objective Data: Objective Information:T [id number]/649 5%Date/Time08/31 5: 5: 5: 5: 5:00Range(36.5C - 37.4C ) (61 - 101 ) (18 - 18 ) (146 - 160 )/ (64 - 79 )(95% - 96% )Highest temp of 37.4 C was recorded at 08/30 14:04 Pain at Rest reported at 08/31 10:30: 7 Physical Exam: Constitutional: Frail malnourished elderly woman in [facility]: PERLENMT: mucous membranes moist, no apparent injury, no lesions seenHead/Neck: Neck supple, no apparent injury, thyroid without mass or tenderness,No JVD, trachea midline, no bruitsRespiratory/Thorax: Patent airways, CTAB, normal breath sounds with good chestexpansion, thorax symmetricCardiovascular: Regular, rate and rhythm, no murmurs, 2+ equal pulses of theextremities, normal S 1and S 2Gastrointestinal: nondistended, non tender abdomen. BS +Extremities: no edemaNeurological: alert and oriented x3, intact senses, motor, response andreflexes, normal strengthPsychological: Appropriate mood and behaviorSkin: no rashes Medication: Medications: Continuous Medications ----No continuous medications are active Scheduled Medications ---- 1. Isosorbide Mononitrate Extended Release: 60 mg Oral At Bedtime2. Lidocaine 5% TransDermal: 1 patch TransDermal Every 24 Hours3. Lisinopril: 10 mg Oral Daily4. Metoprolol Tartrate: 50 mg Oral Every 12 Hours5. Pantoprazole: 40 mg Oral Daily6. Polyethylene Glycol: 17 gram(s) Oral Daily PRN Medications ---- 1. Ondansetron Injectable: 4 mg IntraVenous Push Every 4 Hours2. oxyCODONE 5 mg - Acetaminophen 325 m tablet(s) Oral Every 4 Hours Recent Lab Results: Results: I have reviewed these laboratory results: Basic Metabolic Panel Trending View [id number] 08:15:00 30-Aug-2017 05:25:00Glucose, Nnxhg913 H 111 KMI433 139K4.0 3.3 EQQ134 107Bicarbonate, Serum26 27Anion Gap, Serum9 L 8 LBUN5 L 89SPUJW1.54 0.49 LGFR-Non >60 >60GFR->60 >60Calcium, Serum8.4 L 8.1 L Assessment and Plan:Assessment:82-year-old woman with history of multiple abdominal surgeries who was in herusual state of health when she developed nausea later followed by vomiting,abdominal distention and abdominal pain. She denied fever, chills, sweats. Nodiarrhea. No melena or hematochezia. She presented to [facility] and CT of her abdomen and pelvis was read as showing findings consistentwith small bowel obstruction. [facility] We have been consulted to help with the management of hermedical problems which are as follows: hypertension, hyperlipidemia, coronaryartery disease status post CABG, depression, anxiety, gastroesophageal refluxdisease, and gout SBO, resolved. H/o multiple abdominal surgeries- on soft diet. HTN- restarted home meds, BP is controlled CAD/CABG- stable on meds. Cardio on consult Depression- in much better mood today DVT prx- SCDs Per Dr Tapia the plan is to d/c her back to [place] tomorrow. Nutrition Diagnosis:? Nutrition DiagnosisAgree with dietitian?s assessment and diagnoses as stated.Severe protein calorie malnutrition related to inadequate oral intake andunintentional weight loss as evidence by 13% weight loss in 6 months, ptreporting decreased oral intake x several months, muscle/ fat depletion noted,and documented NPO/decreased oral intake x 5 days since admission.. Electronic Signatures:Maria Del Carmen Andino) (Signed 31-Aug-2017 12:51)Authored: Service, Subjective Data, Objective Data, Assessment and Plan,Signature/Cosignature/A ttestation Last Updated: 31-Aug-2017 12:51 by Maria Del Carmen Andino) Normal [facility] Daily Progress Note-Surgeryo n 08-31-2017 Protein mass conc Consult Type: subseq uent visit/care Service: Surgery Subjective Data:KATHERINE JUDGE is a 82 year old Female who is Hospital Day # 6. No voiced c/o. Overnight Events: Patient had an uneventful night. Objective Data: Objective Information:T [id number]/649 5%Date/Time08/31 5: 5: 5: 5: 5:00Range(36.5C - 37.4C ) (61 - 101 ) (18 - 18 ) (146 - 160 )/ (64 - 79 )(95% - 96% )Highest temp of 37.4 C was recorded at 08/30 14:04 Pain with Activity reported at 08/30 11:13: 6Pain at Rest reported at 08/31 5:21: 7 Physical Exam: Constitutional: frail, elderly female. NAD. Alert and oriented.Eyes: PERRL, EOMI, clear scleraENMT: mucous membranes moist, no apparent injury, no lesions seenRespiratory/Thorax: LCTA. non-labored.Cardiovascular: Heart RRRGastrointestinal: Nondistended, soft, non-tender, no rebound tenderness orguarding, no masses palpable, no organomegaly, +BS, no bruitsMusculoskeletal: ROM intact, no joint swelling, normal strengthExtremities: normal extremities, no cyanosis edema, contusions or wounds, noclubbingNeurological: alert and oriented x3, intact senses, motor, response andreflexes, normal strengthPsychological: Appropriate mood and behaviorSkin: Warm and dry, no lesions, no rashes Medication: Medications: Continuous Medications ----No continuous medications are active Scheduled Medications ---- 1. Isosorbide Mononitrate Extended Release: 60 mg Oral At Bedtime2. Lidocaine 5% TransDermal: 1 patch TransDermal Every 24 Hours3. Lisinopril: 10 mg Oral Daily4. Metoprolol Tartrate: 50 mg Oral Every 12 Hours5. Pantoprazole: 40 mg Oral Daily6. Polyethylene Glycol: 17 gram(s) Oral Daily PRN Medications ---- 1. Ondansetron Injectable: 4 mg IntraVenous Push Every 4 Hours2. oxyCODONE 5 mg - Acetaminophen 325 m tablet(s) Oral Every 4 Hours Recent Lab Results: Results: I have reviewed these laboratory results: Basic Metabolic Panel 31-Aug-2017 08:15:00 ResultValueGlucose, Serum 113 HNA 137K 4.0CL 106Bicarbonate, Serum 26Anion Gap, Serum 9 LBUN 5 LCREAT 0.54GFR-Non >60GFR- >60Calcium, Serum 8.4 L Assessment and Plan: Admitting Dx:Abdominal pain: Entered Date: 26-Aug-2017 03:10 Additional Dx:Essential hypertension: Entered Date: 26-Aug-2017 09:59CAD (coronary artery disease): Entered Date: 26-Aug-2017 09:59Hypercalcemia: Entered Date: 27-Jul-2017 07:35Encephalopathy: Entered Date: 26-Jul-2017 15:54Elevated serum creatinine: Entered Date: 16-Jul-2017 07:24Cecal volvulus: Entered Date: 16-Jul-2017 07:22Severe protein-calorie malnutrition (Carrera: less than 60% of standard weight):Entered Date: 12-Jul-2017 07:46Confusion and disorientation: Entered Date: 12-Jul-2017 07:43Clostridium difficile colitis: Entered Date: 10-Jul-2017 12:52Hypomagnesemia: Entered Date: 09-Jul-2017 14: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: EnteredDate: 09-Jul-2017 09:28Acute on chronic diastolic (congestive) heart failure: Entered Date:09-Jul-2017 09:28Hypokalemia: Entered Date: 08-Jul-2017 12:37Pulmonary edema: Entered Date: 06-Jul-2017 07:40Tachypnea: Entered Date: 06-Jul-2017 07:40S/P right hemicolectomy: Entered Date: 03-Jul-2017 00:33Small bowel obstruction: Entered Date: 02-Jul-2017 20:32NSTEMI (non-ST elevated myocardial infarction): Entered Date: 40-Yva-286140:25UTI (urinary tract infection), bacterial: Entered Date: 27-Dec-2016 20:58Anemia: Entered Date: 26-Dec-2016 19:03Lactic acidosis: Entered Date: 26-Dec-2016 19:03Leukocytosis, unspecified type: Entered Date: 26-Dec-2016 19:02Hypotension (arterial): Entered Date: 26-Dec-2016 19:02Pneumonia of right lower lobe due to infectious organism: Entered Date:26-Dec-2016 19:02Acute encephalopathy: Entered Date: 15-Jun-2014 11:11 Medical History:Failure to thrive: Entered Date: 28-Jul-2017 20:32Gastrocutaneous fistula: Entered Date: 05-Apr-2012 07:05Constipation: Entered Date: 04-Apr-2012 07:07Ileus: Entered Date: 14-Mar-2012 08:35Exploratory laparotomy: Entered Date: 09-Mar-2012 13:08Anemia due to unknown or multiple mechanisms (disorder): Entered Date:08-Mar-2012 06:47Transient ischemic colitis (disorder): Entered Date: 07-Mar-2012 07:55Protein malnutrition unspecified (disorder): Entered Date: 18-Feb-2012 07:07Hypokalemia (disorder): Entered Date: 15-Feb-2012 08:22Magnesium deficiency: Entered Date: 15-Feb-2012 08:22Colitis (disorder): Entered Date: 12-Feb-2012 06:59Small bowel obstruction (disorder): Entered Date: 11-Feb-2012 19:00Acute bowel obstruction: Onset Date: 11-Feb-2012, Entered Date: 49-Wzj-299712:56Generalized abdominal pain (finding): Entered Date: 11-Feb-2012 18:56 Chronic:Fluid overload pulmonary edema: Entered Date: 29-Aug-2012 07:41Clostridium difficile infection: Entered Date: 28-Aug-2012 07:25Chest pain: Entered Date: 28-Aug-2012 07:24Diarrhea: Entered Date: 25-Aug-2012 20:22 Other Dx/Proc:CHEST PAIN: Entered Date: 01-Sep-2012 08:07Unstable angina/chest pain: Entered Date: 28-Aug-2012 07:28Gastrointestinal bleeding: Entered Date: 25-Aug-2012 13:511 Colitis, 2 Abdomen Pain 3 Cholelithiasis: Onset Date: 03-Apr-2012, EnteredDate: 03-Apr-2012 01:45Heart failure: Entered Date: 12-Mar-2012 08:44PNEUMONIA: Entered Date: 11-Mar-2012 20:33Diabetes mellitus: Entered Date: 31-Dec-2011 14:04Abdominal pain: Entered Date: 28-Dec-2011 20:11Electrolyte imbalance: Entered Date: 25-Dec-2009 11:50Post CABG: Entered Date: 25-Dec-2009 11:50Coronary artery disease: Entered Date: 14-Dec-2009 11:48Non ST Elevation Myocardial Infarction (NSTEMI): Entered Date: 77-Jmr-223966:29Coronary angioplasty/stent (PCI): Entered Date: 12-Dec-2009 15:30Dyspnea: Entered Date: 12-Dec-2009 12:38Coronary atherosclerosis: Entered Date: 12-Dec-2009 12:38Left heart catheterization: Entered Date: 12-Dec-2009 12:36Hypotension: Entered Date: 09-Sep-2009 15:03Sepsis: Entered Date: 01-Aug-2009 02:21Venous thromboembolism: Entered Date: 31-Jul-2009 14:57 Assessment:Doing well.Advance to soft diet.Miralax scheduled daily, and continue on d/c.d/c IV fluids.Anticipate discharge to home tomorrow. Signature/Cosignature/Attest ation:Attending Only - Shared Visit with Advanced Practice ProviderThis is a sharedvisit. I have reviewed the Advanced Practice Provider?s encounter note,approve the Advanced Practice Provider?s documentation, and provide thefollowing additional information from my personal encounter.Comments/ Additional Findingsadv dietkeep on miralax Electronic Signatures:Vanessa Rodarte (DANCE ARTIST-COMMUNITY LIVING SPECIALIST) (Signed 31-Aug-2017 10:30)Authored: Service, Subjective Data, Objective Data, Assessment and Plan,Signature/Cosignature/A ttestationJessenia Tapia) (Signed 31-Aug-2017 10:35)Authored: Signature/Cosignature/Attest ation Last Updated: 31-Aug-2017 10:35 by Jessenia Tapia) [facility] Nutrition Therapy-Assessment on 08-31-2017 Nutrition Therapy-Assessment Assessment Subjective/Objective:Note Type: Assessment Note Authored by: Registered Dietitian NutritionistPager Number: [phone] Nutrition Note:The patient is a 82 year old Female admitted for small bowel obstruction. Per chart review, pt with a hx of ileus, failure to thrive, SBO resulting insurgery. Pt with nausea, vomiting, and abdominal distention x 1 day prior toadmission. Pt reports having small bowel movements. RE: Nutrition ConsultPt states that her appetite has been poor since her bowel surgery earlier thisyear- states that she has lost weight due to not eating. Pt does not like Boostdrinks but is willing to try the boost pudding. Pt typically consumes Ensure athome. No reports that the nausea/ vomiting have resolved and no issues withchewing/ swallowing. Pt consumed 50% of her oatmeal, some orange juice and 1/4c of coffee - reports that this is her usual intake. Discussed eating smallermeals more frequently and also consuming high calorie foods when she does eat.Pt understood. Pt willing to try boost pudding and afternoon snack. Admitting Dx:Abdominal pain: Additional Dx:Essential hypertension:CAD (coronary artery disease):Hypercalcemia:Encep halopathy:Elevated serum creatinine:Cecal volvulus:Severe protein-calorie malnutrition (Carrera: less than 60% of standard weight): Confusion and disorientation:Clostridium difficile colitis:Hypomagnesemia:Hyper tensive heart disease with systolic congestive heart failure:Acute on chronic diastolic (congestive) heart failure:Hypokalemia:Pulmonar y edema:Tachypnea:S/P right hemicolectomy:Small bowel obstruction:NSTEMI (non-ST elevated myocardial infarction):UTI (urinary tract infection), bacterial:Anemia:Lactic acidosis:Leukocytosis, unspecified type:Hypotension (arterial):Pneumonia of right lower lobe due to infectious organism:Acute encephalopathy: Medical History: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:Constipation:Ileus:E xploratory laparotomy:Anemia due to unknown or multiple mechanisms (disorder):Transient ischemic colitis (disorder):Protein malnutrition unspecified (disorder):Hypokalemia (disorder):Magnesium deficiency:Colitis (disorder):Small bowel obstruction (disorder):Acute bowel obstruction: Onset Date: 22-Dws-6535Rlxrdelwkvl abdominal pain (finding): Chronic:Fluid overload pulmonary edema:Clostridium difficile infection:Chest pain:Diarrhea: Other Dx/Proc:CHEST PAIN: Description: CHEST PAINUnstable angina/chest pain: Description: Unstable angina/chest painGastrointestinal bleeding: Description: Gastrointestinal bleeding1 Colitis, 2 Abdomen Pain 3 Cholelithiasis: Onset Date: 37-Ici-4105Zwrqj failure: Description: Heart failurePNEUMONIA:Diabetes mellitus: Description: Diabetes mellitusAbdominal pain: Description: Abdominal painElectrolyte imbalance: Description: Electrolyte imbalancePost CABG: Description: Post CABGCoronary artery disease: Description: Coronary artery diseaseNon ST Elevation Myocardial Infarction (NSTEMI): Description: Non ST ElevationMyocardial Infarction (NSTEMI)Coronary angioplasty/stent (PCI): Description: Coronary angioplasty/stent(PCI)Dyspne a: Description: DyspneaCoronary atherosclerosis: Description: Coronary atherosclerosisLeft heart catheterization: Description: Left heart catheterizationHypotension:S epsis: Description: SepsisVenous thromboembolism: Description: Venous thromboembolism Medical History: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:Constipation:Ileus:E xploratory laparotomy:Anemia due to unknown or multiple mechanisms (disorder):Transient ischemic colitis (disorder):Protein malnutrition unspecified (disorder):Hypokalemia (disorder):Magnesium deficiency:Colitis (disorder):Small bowel obstruction (disorder):Acute bowel obstruction: Onset Date: 92-Dxd-5137Aszqyjqxgne abdominal pain (finding):Acute bowel obstruction:Acute bowel obstruction: Objective Information: T VSWYUeH3Bvfxt79.27891987/649 5%Date/Time08/31 5: 5: 5: 5: 5:00Range(36.5C - 37.4C ) (61 - 101 ) (18 - 18 ) (146 - 160 )/ (64 - 79 )(95% - 96% )Highest temp of 37.4 C was recorded at 08/30 14:04 Pain at Rest reported at 08/31 10:30: 7 ---- Intake and Output -----Mn/Dy/Year TimeIntakeOutCol[facility] 2017 6:00 [id number] 2017 10:00 ct478Vcp 2017 2:00 [id number] The Intake and Output Totals for the last 24 hours are:RmnwyqEvnvvuCks9893orhny ull Intake Output Enteral - Oral 360 mL IV Fluids 2409 mL Height/Weight:Height in feet: 5 feetHeight in inches: 0 inch(es)Height in cm: 152.4 centimeter(s)Weight (kg): 40.6BMI (kg/m2): 17.48 square meterDBW (kg): 45%DBW: 90Weight history/ % weight change: 06/18/17 -- 45.9kg2/10/27 -- 46.8kg/ -- 45.9kg6/ -- 49kg 13% weight loss in 6 months; 11% weight loss in ~3 monthsSignificant Weight Change: yes Recent Lab Results: Results: I have reviewed these laboratory results: Basic Metabolic Panel Trending View [id number] 08:15:00 30-Aug-2017 05:25:00Glucose, Oubhe354 H 111 OEP889 139K4.0 3.3 UYK708 107Bicarbonate, Serum26 27Anion Gap, Serum9 L 8 LBUN5 L 33LBMDG4.54 0.49 LGFR-Non >60 >60GFR->60 >60Calcium, Serum8.4 L 8.1 L Nutrition Labs:Special Chemistry: 03-Jul-2017 10:15, Hemoglobin K2MWhujvwonxr A1C, Level5.3 Diagnosis of Diabetes-Adults Non-Diabetic: < or = 5.6% Increased risk for developing diabetes: 5.7-6.4% Diagnostic of diabetes: > or = 6.5%. Monitoring of Diabetes Age (y) Therapeutic Goal (%) Adults: >18 <7.0 Pediatrics: 13-18 <7.5 7-12 <8.0 0- 6 7.5-8.5 [place] [employer]. Diabetes Care 33(S1), Feb 2009.Estimated Average Hiumlgl766 Current Active Medications/PN:Ondansetron Injectable, (ZOFRAN)DOSE = 4 mg IntraVenous Push Every 4 Hours, PRN Nausea, 72-Ksq-9385Iolzejomm 5% TransDermal, Film (LIDODERM)DOSE = 1 patch TransDermal Every 24 Hours, 13-Iyg-1883Yqnmmiiqur Mononitrate Extended Release, Tablet, Extended Release (IMDUR)DOSE = 60 mg Oral At Bedtime, 77-Geg-4367Ibzzesdkct, Tablet (PRINIVIL, ZESTRIL)DOSE = 10 mg Oral Daily, 99-Ckw-4847Kqleytxxqi Tartrate, Tablet (LOPRESSOR)DOSE = 50 mg Oral Every 12 Hours, 47-Gtp-5364cinVIWPXI 5 mg - Acetaminophen 325 mg, Tablet (PERCOCET)DOSE = 1 tablet(s) Oral Every 4 Hours, PRN Pain - Severe (7-10), 13-Qud-7086Yjsohrhyawvu, Enteric Coated Tablet (PROTONIX)DOSE = 40 mg Oral Daily, 51-Tds-3203Gufgfcbpvlho Glycol, Powder for Reconstitution (MIRALAX)DOSE = 17 gram(s) Oral Daily, 31-Aug-2017 Nutrition Orders:May Participate in Room Service, YesOrder entered from Admission Screens., 15-Etp-6977Brqh Nutritional Supplements, RoutineBoost PuddingFlavor Preference: Vanilla, 2 Times a DaySpecial Instructions: Please send wtih lunch and dinner.AFTERNOON SNACK:Please send pt fresh fruit and cheese for afternoon snack. Thank you!,12-Etb-7193Raqj, Mechanical Soft, 31-Aug-2017 Food/Nutrition Related History:Change in Oral Intake/Appetite: decreaseGI Symptoms: anorexia, constipationTime Frame for GI Symptoms Greater Than 2 Weeks: yesOral Problems: denies Nutrition Focused Physical Findings:Muscle Wasting:Temporal: yesShoulder: yesClavicle: yesScapula/Back: deferBiceps/Triceps: yesInterosseous: yesQuadriceps: deferCalf: deferMuscle Comment: Moderate- Severe Loss of Subcutaneous Fat:Eyes: yesPerioral: yesTriceps: yesChest: yesSubcutaneous Fat Comment: Moderate- Severe Other Physical Findings:Hair: negativeEyes: negativeMouth: negativeNails: negativeSkin: WNL, IntactEdema: noneChange in Metabolic Demand: noSubjective Global Assessment Rating: severe malnutritionEtiology: chronic illness Estimated Needs:kcals/day: 1230-1435gms protein/day: 62mL fluid/day: 1500 or per MD Nutrition Diagnosis:Diagnosis1 new. Dx: Severe protein calorie malnutrition. related to inadequateoral intake and unintentional weight loss as evidenced by 13% weight loss in 6months, pt reporting decreased oral intake x several months, muscle/ fatdepletion noted, and documented NPO/decreased oral intake x 5 days sinceadmission. Additional Assessment Information: Estimated needs based on CBW: 41kg. Nutrition Interventions:Individualized Nutrition Prescription Provided for: diet, fluidsDiet Education: not applicableOrdered Supplements: Boost Pudding, BID (540 kcal, 14 g protein)Ordered Snacks: Afternoon snack of fresh fruit and cheese Nutrition Goals:Goals: Nutrition Therapy: oral intake greater than 50%, consume prescribedsupplement, adequate po fluid intake, lab values within normal limits, maintainstable weight Outcomes Summary: Nutrition TherapyOutcome Summary: Nutritional Therapy: Severe Protein Calorie Malnutrition Nutrition Therapy Recommendations:Nutrition Therapy Recommendations: 1. Regular diet/ mechanical soft2. Supplements and snacks ordered3. If PO intake remains poor, may need to consider appetite stimulant4. Weights 2-3x/wk for trend Dietitian Monitoring and Evaluation Plan:Monitoring and Evaluation Plan: po intake and tolerance, fluid intake/adequacy,digestive function, weight trend, stool output, mealtime behavior, labs Electronic Signatures:Mikie May (DEEPA HENRIQUEZ) (Signed 31-Aug-2017 11:26)Authored: Assessment Subjective/Objective, Nutrition Focused PhysicalFindings, Estimated Needs, Nutrition Diagnosis, Nutrition Interventions,Nutrition Goals, Nutrition Recommendations, Dietitian Monitoring and EvaluationPlan Last Updated: 31-Aug-2017 11:26 by Mikie May (DEEPA HENRIQUEZ) Normal [facility] BASIC METABOLIC PANELon 07-2 Anion gap 3 molar conc 8 mmol/L Low 10 - 20 [facility] Comment on above: Performed By: #### B MP ####[facility] [id number] [place] [address] Calcium mass conc 8.1 mg/dL Low 8.6 - 10.3 [facility] Comment on above: Performed By: #### B MP ####[facility] [id number] [place] [address] Chloride molar conc 107 mmol/L Normal 98 - 107 [facility] Comment on above: Performed By: #### B MP ####[facility] [id number] [place] [address] Creatinine mass conc 0.49 mg/dL Low 0.50 - 1.05 [facility] Comment on above: Performed By: #### B MP ####[facility] [id number] [place] [address] GFR- AM. >60 Normal >60 [facility] Comment on above: Result Comment: CALC ULATIONS OF ESTIMATED GFR ARE PERFORMED USING THE MDRD STUDY EQUATION FOR THE IDMS-TRACEABLE CREATININE METHODS. CLIN CHEM 2007;53:766-72 Performed By: #### B MP ####[facility] [id number] [place] [address] GFR-NON AM. >60 Normal >60 [facility] Comment on above: Performed By: #### B MP ####[facility] [id number] [place] [address] Glucose mass conc 111 mg/dL High 74 - 99 [facility] Comment on above: Performed By: #### B MP ####[facility] [id number] [place] [address] HCO3 molar conc (Bld) 27 mmol/L Normal 21 - 32 [facility] Comment on above: Performed By: #### B MP ####[facility] [id number] [place] [address] Potassium molar conc 3.3 mmol/L Low 3.5 - 5.3 [facility] Comment on above: Performed By: #### B MP ####[facility] [id number] [place] [address] Sodium molar conc 139 mmol/L Normal 136 - 145 [facility] Comment on above: Performed By: #### B MP ####[facility] [id number] [place] [address] Urea nitrogen mass conc 14 mg/dL Normal 6 - 23 [facility] Comment on above: Performed By: #### B MP ####[facility] [id number] [place] [address] CBCon 08-30-2017 Erythrocyte distribution width Auto Ratio (RBC) 14.1 % Normal 11.5 - 14.5 [facility] Comment on above: Performed By: #### C BC ####[facility] [id number] [place] [address] Hematocrit Auto Volume Fraction (Bld) 26.5 % Low 36.0 - 46.0 [facility] Comment on above: Performed By: #### C BC ####[facility] [id number] [place] [address] Hemoglobin mass conc (Bld) 8.4 g/dL Low 12.0 - 16.0 [facility] Comment on above: Performed By: #### C BC ####[facility] [id number] [place] [address] MCHC Auto mass conc (RBC) 31.7 g/dL Low 32.0 - 36.0 [facility] Comment on above: Performed By: #### C BC ####[facility] [id number] [place] [address] MCV Auto Entitic volume (RBC) 99 fL Normal 80 - 100 [facility] Comment on above: Performed By: #### C BC ####[facility] [id number] [place] [address] Platelets Auto #/vol (Bld) 272 10*3/uL Normal 150 - 450 [facility] Comment on above: Performed By: #### C BC ####[facility] [id number] [place] [address] RBC Auto #/vol (Bld) 2.67 x10E12/L Low 4.00 - 5.20 [facility] Comment on above: Performed By: #### C BC ####[facility] [id number] [place] [address] WBC Auto #/vol (Bld) 7.8 10*3/uL Normal 4.4 - 11.3 [facility] Comment on above: Performed By: #### C BC ####[facility] [id number] [address] [place] [address] Daily Progress Note-Infectio us Diseaseon 08-30-2017 Protein mass conc Service: Infectious Disease Subjective Data:KATHERINE JUDGE is a 82 year old Female who is Hospital Day # 5. no fever, no emesis, no abdominal pain, no diarrhea, no rash. Overnight Events: Patient had an uneventful night. Objective Data: Objective Information:T [id number]/[id number]% Date/Time08/30 5: 5: 5: 5: 5:01Range(36C - 36.7C ) (83 - 100 ) (16 - 18 ) (143 - 177 )/ (67 - 105 ) (95%- 97% ) Pain at Rest reported at 08/30 7:57: 6 Physical Exam: Constitutional: awake, no distress, alert and cooperativeEyes: PERRL, EOMI, clear scleraENMT: mucous membranes moist, no apparent injury, no lesions seenHead/Neck: Neck supple, no apparent injury, thyroid without mass or tenderness,No JVD, trachea midline, no bruitsRespiratory/Thorax: Patent airways, CTAB, normal breath sounds with good chestexpansion, thorax symmetricCardiovascular: Regular, rate and rhythm, no murmurs, 2+ equal pulses of theextremities, normal S 1and S 2Gastrointestinal: Nondistended, soft, non-tender, no rebound tenderness orguarding, no masses palpable, no organomegaly, +BS, no bruitsExtremities: no cellulitisSkin: Warm and dry, no lesions, no rashes Medication: Medications: CARDIOVASCULAR AGENTS: 1. Nitroglycerin 2% Topical: 0.5 inch(es) Topical 2 Times a Day2. Metoprolol Injectable: 5 mg IntraVenous Push Every 4 Hours CENTRAL NERVOUS SYSTEM AGENTS: 1. Morphine Injectable: 1 mg IntraVenous Push Every 2 Hours PRN2. Ondansetron Injectable: 4 mg IntraVenous Push Every 4 Hours PRN GASTROINTESTINAL AGENTS: 1. Polyethylene Glycol: 17 gram(s) Oral Daily PRN2. Pantoprazole Injectable: 40 mg IntraVenous Push Every 24 Hours NUTRITIONAL PRODUCTS: 1. Dextrose 5% - NaCL 0.45% with Potassium CL 20 mEq Premix Fluid: 1000 mLIntraVenous TOPICAL AGENTS: 1. Lidocaine 5% TransDermal: 1 patch TransDermal Every 24 Hours Recent Lab Results: Results: I have reviewed these laboratory results: Basic Metabolic Panel [[id number] 05:25:00], Complete Blood Count [Drawn 30-Aug-2017 05:25:00],Magnesium, Serum [Drawn 30-Aug-2017 05:25:00]. Radiology Results: Results:Xray Abdomen AP View [Aug 27 2017 9:39AM] Assessment and Plan:Assessment: 1. Abdominal pain / possble bowel obstruction, the bowel function is better 2. Hx of C. 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 Pyuria, asymptomatic Recommendations : No need for antibiotics Increase the activity Electronic Signatures:Nela Collado) (Signed 30-Aug-2017 11:14)Authored: Service, Assessment/Plan Review, Subjective Data, Objective Data,Assessment and Plan, Signature/Cosignature/Attest ation Last Updated: 30-Aug-2017 11:14 by Neal Collado) [facility] Daily Progress Note-Medicine on 08-30-2017 Protein mass conc Service: Medicine Rick bjective Data:KATHERINE JUDGE is a 82 year old Female who is Hospital Day # 5. Started on full liquid diet this morning, had multiple looses BMs. Overnight Events: Patient had an uneventful night. Objective Data: Objective Information:T [id number]/8197% Date/Time08/30 5: 5: 5: 5: 5:01Range(36C - 36.7C ) (83 - 100 ) (16 - 18 ) (143 - 177 )/ (67 - 105 ) (95%- 97% ) Pain with Activity reported at 08/30 11:13: 6Pain at Rest reported at 08/30 11:13: 6 Physical Exam: Constitutional: Frail malnourished elderly woman in mild distressEyes: PERLENMT: mucous membranes dry.Head/Neck: Neck supple, no apparent injury, thyroid without mass or tenderness,No JVD, trachea midline, no bruitsRespiratory/Thorax: Patent airways, CTAB, normal breath sounds with good chestexpansion, thorax symmetricCardiovascular: Regular, rate and rhythm, no murmurs, 2+ equal pulses of theextremities, normal S 1and S 2Gastrointestinal: minimally distended, non tender abdomen. BS +Extremities: no edemaNeurological: alert and oriented x3, intact senses, motor, response andreflexes, normal strengthPsychological: Appropriate mood and behaviorSkin: no rashes Medication: Medications: Continuous Medications ---- 1. Dextrose 5% - NaCL 0.45% with Potassium CL 20 mEq Premix Fluid: 1000 mLIntraVenous Scheduled Medications ---- 1. Isosorbide Mononitrate Extended Release: 60 mg Oral At Bedtime2. Lidocaine 5% TransDermal: 1 patch TransDermal Every 24 Hours3. Lisinopril: 10 mg Oral Daily4. Metoprolol Tartrate: 50 mg Oral Every 12 Hours5. Pantoprazole: 40 mg Oral Daily PRN Medications ---- 1. Ondansetron Injectable: 4 mg IntraVenous Push Every 4 Hours2. oxyCODONE 5 mg - Acetaminophen 325 m tablet(s) Oral Every 4 Hours3. Polyethylene Glycol: 17 gram(s) Oral Daily Recent Lab Results: Results: I have reviewed these laboratory results: Basic Metabolic Panel 30-Aug-2017 05:25:00 ResultValueGlucose, Serum 111 HNA 139K 3.3 LCL 107Bicarbonate, Serum 27Anion Gap, Serum 8 LBUN 14CREAT 0.49 LGFR-Non >60GFR- >60Calcium, Serum 8.1 L Complete Blood Count 30-Aug-2017 05:25:00 ResultValueWhite Blood Cell Count 7.8Red Blood Cell Count 2.67 LHGB 8.4 LHCT 26.5 LMCV 99MCHC 31.7 LPLT 272RDW-CV 14.1 Magnesium, Serum 30-Aug-2017 05:25:00 ResultValueMagnesium, Serum 1.48 L Assessment and Plan:Assessment:82-year-old woman with history of multiple abdominal surgeries who was in herusual state of health when she developed nausea later followed by vomiting,abdominal distention and abdominal pain. She denied fever, chills, sweats. Nodiarrhea. No melena or hematochezia. She presented to [facility] and CT of her abdomen and pelvis was read as showing findings consistentwith small bowel obstruction. [facility] We have been consulted to help with the management of hermedical problems which are as follows: hypertension, hyperlipidemia, coronaryartery disease status post CABG, depression, anxiety, gastroesophageal refluxdisease, and gout SBO, resolved, NG out.- on full liquid diet Hypokalemia- replacing HTN- restarted home meds CAD/CABG- stable on meds. Cardio on consult Depression- in better mood today DVT prx- SCDs Electronic Signatures:Maria Del Carmen Andino) (Signed 30-Aug-2017 13:18)Authored: Service, Subjective Data, Objective Data, Assessment and Plan,Signature/Cosignature/A ttestation Last Updated: 30-Aug-2017 13:18 by Maria Del Carmen Andino) Normal [facility] Daily Progress Note-Melly merino 08-30-2017 Protein mass conc Service: Surgery Sub jective Data:KATHERINE JUDGE is a 82 year old Female who is Hospital Day # 5. Overnight Events: Patient had an uneventful night. Objective Data: Objective Information:T [id number]/8197% Date/Time08/30 5: 5: 5: 5: 5:01Range(36C - 36.7C ) (83 - 100 ) (16 - 18 ) (143 - 177 )/ (67 - 105 ) (95%- 97% ) Pain with Activity reported at 08/30 11:13: 6Pain at Rest reported at 08/30 11:13: 6 Physical Exam: Constitutional: Well developed, awake/alert/oriented x3, no distress, alert andcooperativeEyes: PERRL, EOMI, clear scleraENMT: mucous membranes moist, no apparent injury, no lesions seenHead/Neck: Neck supple, no apparent injury, thyroid without mass or tenderness,No JVD, trachea midline, no bruitsRespiratory/Thorax: Patent airways, CTAB, normal breath sounds with good chestexpansion, thorax symmetricCardiovascular: Regular, rate and rhythm, no murmurs, 2+ equal pulses of theextremities, normal S 1and S 2Gastrointestinal: softmildly tender but not worseGenitourinary: No Discharge, vesicles or other abnormalitiesMusculoskeletal : ROM intact, no joint swelling, normal strengthExtremities: normal extremities, no cyanosis edema, contusions or wounds, noclubbingSkin: Warm and dry, no lesions, no rashes Medication: Medications: Continuous Medications ---- 1. Dextrose 5% - NaCL 0.45% with Potassium CL 20 mEq Premix Fluid: 1000 mLIntraVenous Scheduled Medications ---- 1. Isosorbide Mononitrate Extended Release: 60 mg Oral At Bedtime2. Lidocaine 5% TransDermal: 1 patch TransDermal Every 24 Hours3. Lisinopril: 10 mg Oral Daily4. Metoprolol Tartrate: 50 mg Oral Every 12 Hours5. Pantoprazole: 40 mg Oral Daily PRN Medications ---- 1. Ondansetron Injectable: 4 mg IntraVenous Push Every 4 Hours2. oxyCODONE 5 mg - Acetaminophen 325 m tablet(s) Oral Every 4 Hours3. Polyethylene Glycol: 17 gram(s) Oral Daily Recent Lab Results: Results: I have reviewed these laboratory results: Basic Metabolic Panel 30-Aug-2017 05:25:00 ResultValueGlucose, Serum 111 HNA 139K 3.3 LCL 107Bicarbonate, Serum 27Anion Gap, Serum 8 LBUN 14CREAT 0.49 LGFR-Non >60GFR- >60Calcium, Serum 8.1 L Complete Blood Count 30-Aug-2017 05:25:00 ResultValueWhite Blood Cell Count 7.8Red Blood Cell Count 2.67 LHGB 8.4 LHCT 26.5 LMCV 99MCHC 31.7 LPLT 272RDW-CV 14.1 Magnesium, Serum 30-Aug-2017 05:25:00 ResultValueMagnesium, Serum 1.48 L Assessment and Plan: Admitting Dx:Abdominal pain: Entered Date: 26-Aug-2017 03:10 Additional Dx:Essential hypertension: Entered Date: 26-Aug-2017 09:59CAD (coronary artery disease): Entered Date: 26-Aug-2017 09:59Hypercalcemia: Entered Date: 27-Jul-2017 07:35Encephalopathy: Entered Date: 26-Jul-2017 15:54Elevated serum creatinine: Entered Date: 16-Jul-2017 07:24Cecal volvulus: Entered Date: 16-Jul-2017 07:22Severe protein-calorie malnutrition (Carrera: less than 60% of standard weight):Entered Date: 12-Jul-2017 07:46Confusion and disorientation: Entered Date: 12-Jul-2017 07:43Clostridium difficile colitis: Entered Date: 10-Jul-2017 12:52Hypomagnesemia: Entered Date: 09-Jul-2017 14: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: EnteredDate: 09-Jul-2017 09:28Acute on chronic diastolic (congestive) heart failure: Entered Date:09-Jul-2017 09:28Hypokalemia: Entered Date: 08-Jul-2017 12:37Pulmonary edema: Entered Date: 06-Jul-2017 07:40Tachypnea: Entered Date: 06-Jul-2017 07:40S/P right hemicolectomy: Entered Date: 03-Jul-2017 00:33Small bowel obstruction: Entered Date: 02-Jul-2017 20:32NSTEMI (non-ST elevated myocardial infarction): Entered Date: [id number] (urinary tract infection), bacterial: Entered Date: 27-Dec-2016 20:58Anemia: Entered Date: 26-Dec-2016 19:03Lactic acidosis: Entered Date: 26-Dec-2016 19:03Leukocytosis, unspecified type: Entered Date: 26-Dec-2016 19:02Hypotension (arterial): Entered Date: 26-Dec-2016 19:02Pneumonia of right lower lobe due to infectious organism: Entered Date:26-Dec-2016 19:02Acute encephalopathy: Entered Date: 15-Jun-2014 11:11 Medical History:Failure to thrive: Entered Date: 28-Jul-2017 20:32Gastrocutaneous fistula: Entered Date: 05-Apr-2012 07:05Constipation: Entered Date: 04-Apr-2012 07:07Ileus: Entered Date: 14-Mar-2012 08:35Exploratory laparotomy: Entered Date: 09-Mar-2012 13:08Anemia due to unknown or multiple mechanisms (disorder): Entered Date:08-Mar-2012 06:47Transient ischemic colitis (disorder): Entered Date: 07-Mar-2012 07:55Protein malnutrition unspecified (disorder): Entered Date: 18-Feb-2012 07:07Hypokalemia (disorder): Entered Date: 15-Feb-2012 08:22Magnesium deficiency: Entered Date: 15-Feb-2012 08:22Colitis (disorder): Entered Date: 12-Feb-2012 06:59Small bowel obstruction (disorder): Entered Date: 11-Feb-2012 19:00Acute bowel obstruction: Onset Date: 11-Feb-2012, Entered Date: [id number] abdominal pain (finding): Entered Date: 11-Feb-2012 18:56 Chronic:Fluid overload pulmonary edema: Entered Date: 29-Aug-2012 07:41Clostridium difficile infection: Entered Date: 28-Aug-2012 07:25Chest pain: Entered Date: 28-Aug-2012 07:24Diarrhea: Entered Date: 25-Aug-2012 20:22 Other Dx/Proc:CHEST PAIN: Entered Date: 01-Sep-2012 08:07Unstable angina/chest pain: Entered Date: 28-Aug-2012 07:28Gastrointestinal bleeding: Entered Date: 25-Aug-2012 13:511 Colitis, 2 Abdomen Pain 3 Cholelithiasis: Onset Date: 03-Apr-2012, EnteredDate: 03-Apr-2012 01:45Heart failure: Entered Date: 12-Mar-2012 08:44PNEUMONIA: Entered Date: 11-Mar-2012 20:33Diabetes mellitus: Entered Date: 31-Dec-2011 14:04Abdominal pain: Entered Date: 28-Dec-2011 20:11Electrolyte imbalance: Entered Date: 25-Dec-2009 11:50Post CABG: Entered Date: 25-Dec-2009 11:50Coronary artery disease: Entered Date: 14-Dec-2009 11:48Non ST Elevation Myocardial Infarction (NSTEMI): Entered Date: [id number] angioplasty/stent (PCI): Entered Date: 12-Dec-2009 15:30Dyspnea: Entered Date: 12-Dec-2009 12:38Coronary atherosclerosis: Entered Date: 12-Dec-2009 12:38Left heart catheterization: Entered Date: 12-Dec-2009 12:36Hypotension: Entered Date: 09-Sep-2009 15:03Sepsis: Entered Date: 01-Aug-2009 02:21Venous thromboembolism: Entered Date: 31-Jul-2009 14:57 Assessment:improving adv diet slowly Electronic Signatures:Jessenia Tapia) (Signed 30-Aug-2017 11:46)Authored: Service, Subjective Data, Objective Data, Assessment and Plan,Signature/Cosignature/A ttestation Last Updated: 30-Aug-2017 11:46 by Jessenia Tapia) Normal [facility] MAGNESIUMon 08-30-2017 Magnesium mass conc 1.48 mg/dL Low 1.60 - 2.40 [facility] Comment on above: Performed By: #### M G ####[facility] [id number] [place] [address] CBCon 08-29-2017 Erythrocyte distribution width Auto Ratio (RBC) 14.0 % Normal 11.5 - 14.5 [facility] Comment on above: Performed By: #### C BC ####[facility] [id number] [place] [address] Hematocrit Auto Volume Fraction (Bld) 31.5 % Low 36.0 - 46.0 [facility] Comment on above: Performed By: #### C BC ####[facility] [id number] [place] [address] Hemoglobin mass conc (Bld) 10.0 g/dL Low 12.0 - 16.0 [facility] Comment on above: Performed By: #### C BC ####[facility] [id number] [place] [address] MCHC Auto mass conc (RBC) 31.7 g/dL Low 32.0 - 36.0 [facility] Comment on above: Performed By: #### C BC ####[facility] [id number] [place] [address] MCV Auto Entitic volume (RBC) 99 fL Normal 80 - 100 [facility] Comment on above: Performed By: #### C BC ####[facility] [id number] [place] [address] Platelets Auto #/vol (Bld) 338 10*3/uL Normal 150 - 450 [facility] Comment on above: Performed By: #### C BC ####[facility] [id number] [place] [address] RBC Auto #/vol (Bld) 3.18 x10E12/L Low 4.00 - 5.20 [facility] Comment on above: Performed By: #### C BC ####[facility] [id number] [place] [address] WBC Auto #/vol (Bld) 13.1 10*3/uL High 4.4 - 11.3 [facility] Comment on above: Performed By: #### C BC ####[facility] [id number] [place] [address] COMPREHENSIVE PANELon 2017 Albumin mass conc 3.0 g/dL Low 3.4 - 5.0 [facility] Comment on above: Performed By: #### C MP ####[facility] [id number] [place] [address] ALP enzyme act/vol 65 U/L Normal 33 - 136 [facility] Comment on above: Performed By: #### C MP ####[facility] [id number] [place] [address] ALT enzyme act/vol 14 U/L Normal 7 - 45 [facility] Comment on above: Result Comment: Viv ents treated with Sulfasalazine may generate falsely decreased results for ALT. Performed By: #### C MP ####[facility] [id number] [place] [address] Anion gap 3 molar conc 11 mmol/L Normal 10 - 20 [facility] Comment on above: Performed By: #### C MP ####[facility] [id number] [place] [address] AST enzyme act/vol 16 U/L Normal 9 - 39 [facility] Comment on above: Performed By: #### C MP ####[facility] [id number] [place] [address] Bilirubin mass conc 0.5 mg/dL Normal 0.0 - 1.2 [facility] Comment on above: Performed By: #### C MP ####[facility] [id number] [place] [address] Calcium mass conc 8.7 mg/dL Normal 8.6 - 10.3 [facility] Comment on above: Performed By: #### C MP ####[facility] [id number] [place] [address] Chloride molar conc 105 mmol/L Normal 98 - 107 [facility] Comment on above: Performed By: #### C MP ####[facility] [id number] [place] [address] Creatinine mass conc 0.59 mg/dL Normal 0.50 - 1.05 [facility] Comment on above: Performed By: #### C MP ####[facility] [id number] [place] [address] GFR- AM. >60 Normal >60 [facility] Comment on above: Result Comment: CALC ULATIONS OF ESTIMATED GFR ARE PERFORMED USING THE MDRD STUDY EQUATION FOR THE IDMS-TRACEABLE CREATININE METHODS. CLIN CHEM 2007;53:766-72 Performed By: #### C MP ####[facility] [id number] [place] [address] GFR-NON AM. >60 Normal >60 [facility] Comment on above: Performed By: #### C MP ####[facility] [id number] [place] [address] Glucose mass conc 115 mg/dL High 74 - 99 [facility] Comment on above: Performed By: #### C MP ####[facility] [id number] [place] [address] HCO3 molar conc (Bld) 27 mmol/L Normal 21 - 32 [facility] Comment on above: Performed By: #### C MP ####[facility] [id number] [place] [address] Potassium molar conc 3.8 mmol/L Normal 3.5 - 5.3 [facility] Comment on above: Performed By: #### C MP ####[facility] [id number] [place] [address] Protein mass conc 6.5 g/dL Normal 6.4 - 8.2 [facility] Comment on above: Performed By: #### C MP ####[facility] [id number] [place] [address] Sodium molar conc 139 mmol/L Normal 136 - 145 [facility] Comment on above: Performed By: #### C MP ####[facility] [id number] [place] [address] Urea nitrogen mass conc 43 mg/dL High 6 - 23 [facility] Comment on above: Performed By: #### C MP ####[facility] [id number] [facility] [place] [address] Daily Progress Note-Infectio us Diseaseon 08-29-2017 Protein mass conc Service: Infectious Disease Subjective Data:KATHERINE JUDGE is a 82 year old Female who is Hospital Day # 4. no fever, had BM per the nurses, the hx is not reliable. Overnight Events: Patient had an uneventful night. Objective Data: Objective Information:T [id number]/75 95%Date/Time08/29 10: 10: 10: 10: 10:20Range(36.3C - 36.8C ) (76 - 114 ) (16 - 20 ) (94 - 164 )/ (66 - 89 ) (92%- 95% ) Pain with Activity reported at 08/28 11:17: 5Pain at Rest reported at 08/28 21:22: 7 Physical Exam: Constitutional: in no distressEyes: PERRL, EOMI, clear scleraENMT: mucous membranes moist, no apparent injury, no lesions seenHead/Neck: Neck supple, no apparent injury, thyroid without mass or tenderness,No JVD, trachea midline, no bruitsRespiratory/Thorax: Patent airways, CTAB, normal breath sounds with good chestexpansion, thorax symmetricCardiovascular: Regular, rate and rhythm, no murmurs, 2+ equal pulses of theextremities, normal S 1and S 2Gastrointestinal: Nondistended, soft, non-tender, no rebound tenderness orguarding, no masses palpable, no organomegaly, +BS, no bruits, the incision isdryExtremities: no cellulitisSkin: Warm and dry, no lesions, no rashes Medication: Medications: CARDIOVASCULAR AGENTS: 1. Nitroglycerin 2% Topical: 0.5 inch(es) Topical 2 Times a Day2. Metoprolol Injectable: 5 mg IntraVenous Push Every 4 Hours CENTRAL NERVOUS SYSTEM AGENTS: 1. Morphine Injectable: 1 mg IntraVenous Push Every 2 Hours PRN2. Ondansetron Injectable: 4 mg IntraVenous Push Every 4 Hours PRN GASTROINTESTINAL AGENTS: 1. Polyethylene Glycol: 17 gram(s) Oral Daily PRN2. Pantoprazole Injectable: 40 mg IntraVenous Push Every 24 Hours NUTRITIONAL PRODUCTS: 1. Dextrose 5% - NaCL 0.45% with Potassium CL 20 mEq Premix Fluid: 1000 mLIntraVenous Recent Lab Results: Results: I have reviewed these laboratory results: Comprehensive Metabolic Panel [[id number] 06:05:00], Complete Blood Count [Drawn 29-Aug-2017 06:05:00],Magnesium, Serum [Drawn 29-Aug-2017 06:05:00]. Radiology Results: Results:Xray Abdomen AP View [Aug 27 2017 9:39AM]Xray Chest 1 View [Aug 26 2017 5:18AM] Assessment and Plan:Assessment: 1. Abdominal pain / possble bowel obstruction, the bowel function is better 2. Hx of C. 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 Pyuria, asymptomatic Recommendations : No need for antibiotics Electronic Signatures:Nela Collado) (Signed 29-Aug-2017 10:55)Authored: Service, Assessment/Plan Review, Subjective Data, Objective Data,Assessment and Plan, Signature/Cosignature/Attest ation Last Updated: 29-Aug-2017 10:55 by Nela Collado) [facility] Daily Progress Note-Medicine on 08-29-2017 Protein mass conc Service: Medicine Rick bjective Data:KATHERINE JUDGE is a 82 year old Female who is Hospital Day # 4. Still be NPO, has not moved her bowels or had flatus. NG is out.She is more withdrawn today. Did not have a good night sleep. Objective Data: Objective Information:T [id number] 4%Date/Time08/29 5: 5: 5: 5: 5:55Range(36.3C - 36.7C ) (76 - 114 ) (18 - 20 ) (94 - 164 )/ (66 - 89 ) (92%- 95% ) Pain with Activity reported at 08/28 11:17: 5Pain at Rest reported at 08/28 21:22: 7 Physical Exam: Constitutional: Frail malnourished elderly woman in mild distressEyes: PERLENMT: mucous membranes dry.Head/Neck: Neck supple, no apparent injury, thyroid without mass or tenderness,No JVD, trachea midline, no bruitsRespiratory/Thorax: Patent airways, CTAB, normal breath sounds with good chestexpansion, thorax symmetricCardiovascular: TachycardiaGastrointestinal: minimally distended, non tender abdomen. BS negativeExtremities: no edemaNeurological: alert and oriented x3, intact senses, motor, response andreflexes, normal strengthPsychological: Appropriate mood and behaviorSkin: no rashes Medication: Medications: Continuous Medications ---- 1. Dextrose 5% - NaCL 0.45% with Potassium CL 20 mEq Premix Fluid: 1000 mLIntraVenous Scheduled Medications ---- 1. Metoprolol Injectable: 5 mg IntraVenous Push Every 4 Hours2. Nitroglycerin 2% Topical: 0.5 inch(es) Topical 2 Times a Day3. Pantoprazole Injectable: 40 mg IntraVenous Push Every 24 Hours PRN Medications ---- 1. Morphine Injectable: 1 mg IntraVenous Push Every 2 Hours2. Ondansetron Injectable: 4 mg IntraVenous Push Every 4 Hours3. Polyethylene Glycol: 17 gram(s) Oral Daily Recent Lab Results: Results: I have reviewed these laboratory results: Comprehensive Metabolic Panel 29-Aug-2017 06:05:00 ResultValueGlucose, Serum 115 HNA 139K 3.8CL 105Bicarbonate, Serum 27Anion Gap, Serum 11BUN 43 HCREAT 0.59GFR-Non >60GFR- >60Calcium, Serum 8.7ALB 3.0 LALKP 65T Pro 6.5T Bili 0.5Alanine Aminotransferase, Serum 14Aspartate Transaminase, Serum 16 Complete Blood Count 29-Aug-2017 06:05:00 ResultValueWhite Blood Cell Count 13.1 HRed Blood Cell Count 3.18 LHGB 10.0 LHCT 31.5 LMCV 99MCHC 31.7 LPLT 338RDW-CV 14.0 Magnesium, Serum 29-Aug-2017 06:05:00 ResultValueMagnesium, Serum 1.68 Assessment and Plan:Assessment:82-year-old woman with history of multiple abdominal surgeries who was in herusual state of health when she developed nausea later followed by vomiting,abdominal distention and abdominal pain. She denied fever, chills, sweats. Nodiarrhea. No melena or hematochezia. She presented to [facility] and CT of her abdomen and pelvis was read as showing findings consistentwith small bowel obstruction. [facility]. We have been consulted to help with the management of hermedical problems which are as follows: hypertension, hyperlipidemia, coronaryartery disease status post CABG, depression, anxiety, gastroesophageal refluxdisease, and gout SBO- NG out. Still be NPO. Has not moved her bowels yet HTN- controlled with Nitro paste and Lopressor IV CAD/CABG- stable. Cardio on consult Depression- known to have depression for years. Hopefully we can start her back on hermeds soon. DVT prx- SCDs Electronic Signatures:Maria Del Carmen Andino) (Signed 29-Aug-2017 10:08)Authored: Service, Subjective Data, Objective Data, Assessment and Plan,Signature/Cosignature/A ttestation Last Updated: 29-Aug-2017 10:08 by Maria Del Carmen Andino) [facility] Daily Progress Note-Surgeryo n 08-29-2017 Protein mass conc Service: Surgery Sub jective Data:KATHERINE JUDGE is a 82 year old Female who is Hospital Day # 4. Overnight Events: Patient had an uneventful night.Additional Information:pt very sleepy this amshe apparently was up all night and had multiple loose stools over night Objective Data: Objective Information:T [id number] 95%Date/Time08/29 10: 10: 10: 10: 10:20Range(36.3C - 36.8C ) (76 - 114 ) (16 - 20 ) (94 - 164 )/ (66 - 89 ) (92%- 95% ) Pain at Rest reported at 08/28 21:22: 7 Physical Exam: Constitutional: Well developed, awake/alert/oriented x3, no distress, alert andcooperativeEyes: PERRL, EOMI, clear scleraENMT: mucous membranes moist, no apparent injury, no lesions seenHead/Neck: Neck supple, no apparent injury, thyroid without mass or tenderness,No JVD, trachea midline, no bruitsRespiratory/Thorax: Patent airways, CTAB, normal breath sounds with good chestexpansion, thorax symmetricCardiovascular: Regular, rate and rhythm, no murmurs, 2+ equal pulses of theextremities, normal S 1and S 2Gastrointestinal: soft mildly tender in LLQGenitourinary: No Discharge, vesicles or other abnormalitiesMusculoskeletal : ROM intact, no joint swelling, normal strengthSkin: Warm and dry, no lesions, no rashes Medication: Medications: Continuous Medications ---- 1. Dextrose 5% - NaCL 0.45% with Potassium CL 20 mEq Premix Fluid: 1000 mLIntraVenous Scheduled Medications ---- 1. Metoprolol Injectable: 5 mg IntraVenous Push Every 4 Hours2. Nitroglycerin 2% Topical: 0.5 inch(es) Topical 2 Times a Day3. Pantoprazole Injectable: 40 mg IntraVenous Push Every 24 Hours PRN Medications ---- 1. Morphine Injectable: 1 mg IntraVenous Push Every 2 Hours2. Ondansetron Injectable: 4 mg IntraVenous Push Every 4 Hours3. Polyethylene Glycol: 17 gram(s) Oral Daily Recent Lab Results: Results: I have reviewed these laboratory results: Comprehensive Metabolic Panel 29-Aug-2017 06:05:00 ResultValueGlucose, Serum 115 HNA 139K 3.8CL 105Bicarbonate, Serum 27Anion Gap, Serum 11BUN 43 HCREAT 0.59GFR-Non >60GFR- >60Calcium, Serum 8.7ALB 3.0 LALKP 65T Pro 6.5T Bili 0.5Alanine Aminotransferase, Serum 14Aspartate Transaminase, Serum 16 Complete Blood Count 29-Aug-2017 06:05:00 ResultValueWhite Blood Cell Count 13.1 HRed Blood Cell Count 3.18 LHGB 10.0 LHCT 31.5 LMCV 99MCHC 31.7 LPLT 338RDW-CV 14.0 Magnesium, Serum 29-Aug-2017 06:05:00 ResultValueMagnesium, Serum 1.68 Assessment and Plan: Admitting Dx:Abdominal pain: Entered Date: 26-Aug-2017 03:10 Additional Dx:Essential hypertension: Entered Date: 26-Aug-2017 09:59CAD (coronary artery disease): Entered Date: 26-Aug-2017 09:59Hypercalcemia: Entered Date: 27-Jul-2017 07:35Encephalopathy: Entered Date: 26-Jul-2017 15:54Elevated serum creatinine: Entered Date: 16-Jul-2017 07:24Cecal volvulus: Entered Date: 16-Jul-2017 07:22Severe protein-calorie malnutrition (Carrera: less than 60% of standard weight):Entered Date: 12-Jul-2017 07:46Confusion and disorientation: Entered Date: 12-Jul-2017 07:43Clostridium difficile colitis: Entered Date: 10-Jul-2017 12:52Hypomagnesemia: Entered Date: 09-Jul-2017 14: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: EnteredDate: 09-Jul-2017 09:28Acute on chronic diastolic (congestive) heart failure: Entered Date:09-Jul-2017 09:28Hypokalemia: Entered Date: 08-Jul-2017 12:37Pulmonary edema: Entered Date: 06-Jul-2017 07:40Tachypnea: Entered Date: 06-Jul-2017 07:40S/P right hemicolectomy: Entered Date: 03-Jul-2017 00:33Small bowel obstruction: Entered Date: 02-Jul-2017 20:32NSTEMI (non-ST elevated myocardial infarction): Entered Date: [id number] (urinary tract infection), bacterial: Entered Date: 27-Dec-2016 20:58Anemia: Entered Date: 26-Dec-2016 19:03Lactic acidosis: Entered Date: 26-Dec-2016 19:03Leukocytosis, unspecified type: Entered Date: 26-Dec-2016 19:02Hypotension (arterial): Entered Date: 26-Dec-2016 19:02Pneumonia of right lower lobe due to infectious organism: Entered Date:26-Dec-2016 19:02Acute encephalopathy: Entered Date: 15-Jun-2014 11:11 Medical History:Failure to thrive: Entered Date: 28-Jul-2017 20:32Gastrocutaneous fistula: Entered Date: 05-Apr-2012 07:05Constipation: Entered Date: 04-Apr-2012 07:07Ileus: Entered Date: 14-Mar-2012 08:35Exploratory laparotomy: Entered Date: 09-Mar-2012 13:08Anemia due to unknown or multiple mechanisms (disorder): Entered Date:08-Mar-2012 06:47Transient ischemic colitis (disorder): Entered Date: 07-Mar-2012 07:55Protein malnutrition unspecified (disorder): Entered Date: 18-Feb-2012 07:07Hypokalemia (disorder): Entered Date: 15-Feb-2012 08:22Magnesium deficiency: Entered Date: 15-Feb-2012 08:22Colitis (disorder): Entered Date: 12-Feb-2012 06:59Small bowel obstruction (disorder): Entered Date: 11-Feb-2012 19:00Acute bowel obstruction: Onset Date: 11-Feb-2012, Entered Date: [id number] abdominal pain (finding): Entered Date: 11-Feb-2012 18:56 Chronic:Fluid overload pulmonary edema: Entered Date: 29-Aug-2012 07:41Clostridium difficile infection: Entered Date: 28-Aug-2012 07:25Chest pain: Entered Date: 28-Aug-2012 07:24Diarrhea: Entered Date: 25-Aug-2012 20:22 Other Dx/Proc:CHEST PAIN: Entered Date: 01-Sep-2012 08:07Unstable angina/chest pain: Entered Date: 28-Aug-2012 07:28Gastrointestinal bleeding: Entered Date: 25-Aug-2012 13:511 Colitis, 2 Abdomen Pain 3 Cholelithiasis: Onset Date: 03-Apr-2012, EnteredDate: 03-Apr-2012 01:45Heart failure: Entered Date: 12-Mar-2012 08:44PNEUMONIA: Entered Date: 11-Mar-2012 20:33Diabetes mellitus: Entered Date: 31-Dec-2011 14:04Abdominal pain: Entered Date: 28-Dec-2011 20:11Electrolyte imbalance: Entered Date: 25-Dec-2009 11:50Post CABG: Entered Date: 25-Dec-2009 11:50Coronary artery disease: Entered Date: 14-Dec-2009 11:48Non ST Elevation Myocardial Infarction (NSTEMI): Entered Date: [id number] angioplasty/stent (PCI): Entered Date: 12-Dec-2009 15:30Dyspnea: Entered Date: 12-Dec-2009 12:38Coronary atherosclerosis: Entered Date: 12-Dec-2009 12:38Left heart catheterization: Entered Date: 12-Dec-2009 12:36Hypotension: Entered Date: 09-Sep-2009 15:03Sepsis: Entered Date: 01-Aug-2009 02:21Venous thromboembolism: Entered Date: 31-Jul-2009 14:57 Assessment:resolving sbodehydrationtry clears Electronic Signatures:Jessenia Tapia) (Signed 29-Aug-2017 12:02)Authored: Service, Subjective Data, Objective Data, Assessment and Plan,Signature/Cosignature/A ttestation Last Updated: 29-Aug-2017 12:02 by Jessenia Tapia) [facility] MAGNESIUMon 08-29-2017 Magnesium mass conc 1.68 mg/dL Normal 1.60 - 2.40 [facility] Comment on above: Performed By: #### M G ####[facility] [id number] [place] [id number] OCCULT BLOOD TEST,STOOLon OCCULT BLOOD,STOOL Positive Abnormal Negative [facility] Comment on above: Performed By: #### O CCB1 ####[facility] [id number] [place] [id number] Daily Progress Note-Infectio us Diseaseon 08-28-2017 Protein mass conc Service: Infectious Disease Subjective Data:KATHERINE JUDGE is a 82 year old Female who is Hospital Day # 3. no fever, no BM, no abdominal hall, no sob, no rash. Overnight Events: Patient had an uneventful night. Objective Data: Objective Information:T [id number] 8%Date/Time08/28 7: 7: 7: 7: 7:51Range(36.8C - 37.2C ) (70 - 87 ) (16 - 16 ) (132 - 199 )/ (65 - 100 )(97% - 98% )Highest temp of 37.2 C was recorded at 08/27 14:57 Pain at Rest reported at 08/28 5:57: 5 Physical Exam: Constitutional: awake, no distress, alert and cooperativeEyes: PERRL, EOMI, clear scleraENMT: mucous membranes moist, no apparent injury, no lesions seenHead/Neck: Neck supple, no apparent injury, thyroid without mass or tenderness,No JVD, trachea midline, no bruitsRespiratory/Thorax: Patent airways, CTAB, normal breath sounds with good chestexpansion, thorax symmetricCardiovascular: Regular, rate and rhythm, no murmurs, 2+ equal pulses of theextremities, normal S 1and S 2Gastrointestinal: Nondistended, soft, non-tender, no rebound tenderness orguarding, no masses palpable, no organomegaly, +BS, no bruitsExtremities: no cellulitisSkin: Warm and dry, no lesions, no rashes Medication: Medications: CARDIOVASCULAR AGENTS: 1. Nitroglycerin 2% Topical: 0.5 inch(es) Topical 2 Times a Day2. Metoprolol Injectable: 5 mg IntraVenous Push Every 4 Hours CENTRAL NERVOUS SYSTEM AGENTS: 1. Morphine Injectable: 1 mg IntraVenous Push Every 2 Hours PRN2. Ondansetron Injectable: 4 mg IntraVenous Push Every 4 Hours PRN GASTROINTESTINAL AGENTS: 1. Polyethylene Glycol: 17 gram(s) Oral Daily PRN NUTRITIONAL PRODUCTS: 1. Dextrose 5% - NaCL 0.45% with Potassium CL 20 mEq Premix Fluid: 1000 mLIntraVenous Recent Lab Results: Results: I have reviewed these laboratory results: Complete Blood Count [[id number] 06:33:00], Basic Metabolic Panel [Drawn 27-Aug-2017 06:33:00]. Radiology Results: Results:Xray Abdomen AP View [Aug 27 2017 9:39AM]Xray Chest 1 View [Aug 26 2017 5:18AM] Assessment and Plan:Assessment: 1. Abdominal pain / possble bowel obstruction 2. Hx of C. 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 Pyuria, asymptomatic Recommendations : Would watch of antibiotics Increase the activity Electronic Signatures:Nela Collado) (Signed 28-Aug-2017 09:04)Authored: Service, Assessment/Plan Review, Subjective Data, Objective Data,Assessment and Plan, Signature/Cosignature/Attest ation Last Updated: 28-Aug-2017 09:04 by Nela Collado) [facility] Daily Progress Note-Medicine on 08-28-2017 Protein mass conc Service: Medicine Rick bjective Data:KATHERINE JUDGE is a 82 year old Female who is Hospital Day # 3. Feeling ok today. Still has NG tube. After a suppository had a small BM. Doesnot pass the flatus. Objective Data: Objective Information:T [id number] 3%Date/Time08/28 12: 12: 12: 12: 12:13Range(36.7C - 37.2C ) (70 - 87 ) (16 - 18 ) (156 - 199 )/ (72 - 89 ) (93%- 98% )Highest temp of 37.2 C was recorded at 08/27 14:57 Pain with Activity reported at 08/28 11:17: 5Pain at Rest reported at 08/28 11:17: 5 Physical Exam: Constitutional: Frail malnourished elderly woman in mild distressEyes: PERLENMT: mucous membranes dry. NG in placeHead/Neck: Neck supple, no apparent injury, thyroid without mass or tenderness,No JVD, trachea midline, no bruitsRespiratory/Thorax: Patent airways, CTAB, normal breath sounds with good chestexpansion, thorax symmetricCardiovascular: Regular, rate and rhythm, no murmurs, 2+ equal pulses of theextremities, normal S 1and S 2Gastrointestinal: minimally distended and tender abdomen. BS negativeExtremities: no edemaNeurological: alert and oriented x3, intact senses, motor, response andreflexes, normal strengthPsychological: Appropriate mood and behaviorSkin: no rashes Medication: Medications: Continuous Medications ---- 1. Dextrose 5% - NaCL 0.45% with Potassium CL 20 mEq Premix Fluid: 1000 mLIntraVenous Scheduled Medications ---- 1. Metoprolol Injectable: 5 mg IntraVenous Push Every 4 Hours2. Nitroglycerin 2% Topical: 0.5 inch(es) Topical 2 Times a Day PRN Medications ---- 1. Morphine Injectable: 1 mg IntraVenous Push Every 2 Hours2. Ondansetron Injectable: 4 mg IntraVenous Push Every 4 Hours3. Polyethylene Glycol: 17 gram(s) Oral Daily Recent Lab Results: Results: I have reviewed these laboratory results: Complete Blood Count 27-Aug-2017 06:33:00 ResultValueWhite Blood Cell Count 10.5Red Blood Cell Count 3.70 LHGB 11.7 LHCT 36.2MCV 98MCHC 32.3PLT 323RDW-CV 14.2 Basic Metabolic Panel 27-Aug-2017 06:33:00 ResultValueGlucose, Serum 132 HNA 143K 3.2 LCL 97 LBicarbonate, Serum 38 HAnion Gap, Serum 11BUN 9CREAT 0.54GFR-Non >60GFR- >60Calcium, Serum 9.0 Magnesium, Serum 27-Aug-2017 06:33:00 ResultValueMagnesium, Serum 1.95 Assessment and Plan:Assessment:82-year-old woman with history of multiple abdominal surgeries who was in herusual state of health when she developed nausea later followed by vomiting,abdominal distention and abdominal pain. She denied fever, chills, sweats. Nodiarrhea. No melena or hematochezia. She presented to [facility] and CT of her abdomen and pelvis was read as showing findings consistentwith small bowel obstruction. [facility] was [facility]. We have been consulted to help with the management of hermedical problems which are as follows: hypertension, hyperlipidemia, coronaryartery disease status post CABG, depression, anxiety, gastroesophageal refluxdisease, and gout SBO- KUB reports no dilated loops. Large output via NG tube. HTN- controlled with Nitro paste and Lopressor IV CAD/CABG- stable. Cardio on consult DVT prx- SCDs Electronic Signatures:Maria Del Carmen Andino () (Signed 28-Aug-2017 12:43)Authored: Service, Subjective Data, Objective Data, Assessment and Plan,Signature/Cosignature/A ttestation Last Updated: 28-Aug-2017 12:43 by Maria Del Carmen Andino) [facility] Daily Progress Note-Melly n 08-28-2017 Protein mass conc Service: Surgery Sub jective Data:KATHERINE JUDGE is a 82 year old Female who is Hospital Day # 3. Overnight Events: Patient had an uneventful night.Additional Information:pt had a BM with suppository Objective Data: Objective Information:T [id number] 2%Date/Time08/28 14: 14: 14: 14: 14:55Range(36.6C - 37.2C ) (70 - 90 ) (16 - 18 ) (156 - 199 )/ (72 - 89 ) (92%- 98% )Highest temp of 37.2 C was recorded at 08/27 21:48 Pain with Activity reported at 08/28 11:17: 5Pain at Rest reported at 08/28 11:17: 5 Physical Exam: Constitutional: Well developed, awake/alert/oriented x3, no distress, alert andcooperativeEyes: PERRL, EOMI, clear scleraENMT: mucous membranes moist, no apparent injury, no lesions seenHead/Neck: Neck supple, no apparent injury, thyroid without mass or tenderness,No JVD, trachea midline, no bruitsRespiratory/Thorax: Patent airways, CTAB, normal breath sounds with good chestexpansion, thorax symmetricCardiovascular: Regular, rate and rhythm, no murmurs, 2+ equal pulses of theextremities, normal S 1and S 2Gastrointestinal: flat softNTGenitourinary: No Discharge, vesicles or other abnormalitiesMusculoskeletal : ROM intact, no joint swelling, normal strengthExtremities: normal extremities, no cyanosis edema, contusions or wounds, noclubbingNeurological: alert and oriented x3, intact senses, motor, response andreflexes, normal strengthSkin: Warm and dry, no lesions, no rashes Medication: Medications: Continuous Medications ---- 1. Dextrose 5% - NaCL 0.45% with Potassium CL 20 mEq Premix Fluid: 1000 mLIntraVenous Scheduled Medications ---- 1. Metoprolol Injectable: 5 mg IntraVenous Push Every 4 Hours2. Nitroglycerin 2% Topical: 0.5 inch(es) Topical 2 Times a Day3. Pantoprazole Injectable: 40 mg IntraVenous Push Every 24 Hours PRN Medications ---- 1. Morphine Injectable: 1 mg IntraVenous Push Every 2 Hours2. Ondansetron Injectable: 4 mg IntraVenous Push Every 4 Hours3. Polyethylene Glycol: 17 gram(s) Oral Daily Recent Lab Results: Results: I have reviewed these laboratory results: Complete Blood Count 27-Aug-2017 06:33:00 ResultValueWhite Blood Cell Count 10.5Red Blood Cell Count 3.70 LHGB 11.7 LHCT 36.2MCV 98MCHC 32.3PLT 323RDW-CV 14.2 Basic Metabolic Panel 27-Aug-2017 06:33:00 ResultValueGlucose, Serum 132 HNA 143K 3.2 LCL 97 LBicarbonate, Serum 38 HAnion Gap, Serum 11BUN 9CREAT 0.54GFR-Non >60GFR- >60Calcium, Serum 9.0 Magnesium, Serum 27-Aug-2017 06:33:00 ResultValueMagnesium, Serum 1.95 Radiology Results: Results: Impression: No dilated loops of bowel. Xray Abdomen AP View [Aug 27 2017 9:39AM] Assessment and Plan: Admitting Dx:Abdominal pain: Entered Date: 26-Aug-2017 03:10 Additional Dx:Essential hypertension: Entered Date: 26-Aug-2017 09:59CAD (coronary artery disease): Entered Date: 26-Aug-2017 09:59Hypercalcemia: Entered Date: 27-Jul-2017 07:35Encephalopathy: Entered Date: 26-Jul-2017 15:54Elevated serum creatinine: Entered Date: 16-Jul-2017 07:24Cecal volvulus: Entered Date: 16-Jul-2017 07:22Severe protein-calorie malnutrition (Carrera: less than 60% of standard weight):Entered Date: 12-Jul-2017 07:46Confusion and disorientation: Entered Date: 12-Jul-2017 07:43Clostridium difficile colitis: Entered Date: 10-Jul-2017 12:52Hypomagnesemia: Entered Date: 09-Jul-2017 14: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: EnteredDate: 09-Jul-2017 09:28Acute on chronic diastolic (congestive) heart failure: Entered Date:09-Jul-2017 09:28Hypokalemia: Entered Date: 08-Jul-2017 12:37Pulmonary edema: Entered Date: 06-Jul-2017 07:40Tachypnea: Entered Date: 06-Jul-2017 07:40S/P right hemicolectomy: Entered Date: 03-Jul-2017 00:33Small bowel obstruction: Entered Date: 02-Jul-2017 20:32NSTEMI (non-ST elevated myocardial infarction): Entered Date: [id number] (urinary tract infection), bacterial: Entered Date: 27-Dec-2016 20:58Anemia: Entered Date: 26-Dec-2016 19:03Lactic acidosis: Entered Date: 26-Dec-2016 19:03Leukocytosis, unspecified type: Entered Date: 26-Dec-2016 19:02Hypotension (arterial): Entered Date: 26-Dec-2016 19:02Pneumonia of right lower lobe due to infectious organism: Entered Date:26-Dec-2016 19:02Acute encephalopathy: Entered Date: 15-Jun-2014 11:11 Medical History:Failure to thrive: Entered Date: 28-Jul-2017 20:32Gastrocutaneous fistula: Entered Date: 05-Apr-2012 07:05Constipation: Entered Date: 04-Apr-2012 07:07Ileus: Entered Date: 14-Mar-2012 08:35Exploratory laparotomy: Entered Date: 09-Mar-2012 13:08Anemia due to unknown or multiple mechanisms (disorder): Entered Date:08-Mar-2012 06:47Transient ischemic colitis (disorder): Entered Date: 07-Mar-2012 07:55Protein malnutrition unspecified (disorder): Entered Date: 18-Feb-2012 07:07Hypokalemia (disorder): Entered Date: 15-Feb-2012 08:22Magnesium deficiency: Entered Date: 15-Feb-2012 08:22Colitis (disorder): Entered Date: 12-Feb-2012 06:59Small bowel obstruction (disorder): Entered Date: 11-Feb-2012 19:00Acute bowel obstruction: Onset Date: 11-Feb-2012, Entered Date: [id number] abdominal pain (finding): Entered Date: 11-Feb-2012 18:56 Chronic:Fluid overload pulmonary edema: Entered Date: 29-Aug-2012 07:41Clostridium difficile infection: Entered Date: 28-Aug-2012 07:25Chest pain: Entered Date: 28-Aug-2012 07:24Diarrhea: Entered Date: 25-Aug-2012 20:22 Other Dx/Proc:CHEST PAIN: Entered Date: 01-Sep-2012 08:07Unstable angina/chest pain: Entered Date: 28-Aug-2012 07:28Gastrointestinal bleeding: Entered Date: 25-Aug-2012 13:511 Colitis, 2 Abdomen Pain 3 Cholelithiasis: Onset Date: 03-Apr-2012, EnteredDate: 03-Apr-2012 01:45Heart failure: Entered Date: 12-Mar-2012 08:44PNEUMONIA: Entered Date: 11-Mar-2012 20:33Diabetes mellitus: Entered Date: 31-Dec-2011 14:04Abdominal pain: Entered Date: 28-Dec-2011 20:11Electrolyte imbalance: Entered Date: 25-Dec-2009 11:50Post CABG: Entered Date: 25-Dec-2009 11:50Coronary artery disease: Entered Date: 14-Dec-2009 11:48Non ST Elevation Myocardial Infarction (NSTEMI): Entered Date: [id number] angioplasty/stent (PCI): Entered Date: 12-Dec-2009 15:30Dyspnea: Entered Date: 12-Dec-2009 12:38Coronary atherosclerosis: Entered Date: 12-Dec-2009 12:38Left heart catheterization: Entered Date: 12-Dec-2009 12:36Hypotension: Entered Date: 09-Sep-2009 15:03Sepsis: Entered Date: 01-Aug-2009 02:21Venous thromboembolism: Entered Date: 31-Jul-2009 14:57 Assessment:looks bettertry to d/c ngt later Electronic Signatures:Jessenia Tapia) (Signed 28-Aug-2017 15:04)Authored: Service, Subjective Data, Objective Data, Assessment and Plan,Signature/Cosignature/A ttestation Last Updated: 28-Aug-2017 15:04 by Jessenia Tapia) [facility] ABDOMEN AP VIEWon 08-27-2017 ABDOMEN AP VIEW Name: KATHERINE JUDGE STUDY:TH ABDOMEN AP VIEW; 08/27/2017 9:11 am INDICATION:Signs/Symptoms: abdominal pain with nausea/vomiting. COMPARISON:07/04/2014 ORDERING CLINICIAN:VANESSA RODARTE TECHNIQUE:1 views of the abdomen FINDINGS:NG tube terminates in the gastric body. A no dilated loops of bowel.Mild scattered stool in the colon. IMPRESSION:No dilated loops of bowel.Electronically signed by: BETITO MANN MD [facility] [facility] BASIC METABOLIC PANELon 08-09 Anion gap 3 molar conc 11 mmol/L Normal 10 - [facility] Comment on above: Performed By: #### B MP ####[facility] [id number] [place] [address] Calcium mass conc 9.0 mg/dL Normal 8.6 - 10.3 [facility] Comment on above: Performed By: #### B MP ####[facility] [id number] [place] [address] Chloride molar conc 97 mmol/L Low 98 - 107 [facility] Comment on above: Performed By: #### B MP ####[facility] [id number] [place] [address] Creatinine mass conc 0.54 mg/dL Normal 0.50 - 1.05 [facility] Comment on above: Performed By: #### B MP ####[facility] [id number] [place] [address] GFR- AM. >60 Normal >60 [facility] Comment on above: Result Comment: CALC ULATIONS OF ESTIMATED GFR ARE PERFORMED USING THE MDRD STUDY EQUATION FOR THE IDMS-TRACEABLE CREATININE METHODS. CLIN CHEM 2007;53:766-72 Performed By: #### B MP ####[facility] [id number] [place] [address] GFR-NON AM. >60 Normal >60 [facility] Comment on above: Performed By: #### B MP ####[facility] [id number] [place] [address] Glucose mass conc 132 mg/dL High 74 - 99 [facility] Comment on above: Performed By: #### B MP ####[facility] [id number] [place] [address] HCO3 molar conc (Bld) 38 mmol/L High 21 - 32 [facility] Comment on above: Performed By: #### B MP ####[facility] [id number] [place] [address] Potassium molar conc 3.2 mmol/L Low 3.5 - 5.3 [facility] Comment on above: Performed By: #### B MP ####[facility] [id number] [place] [address] Sodium molar conc 143 mmol/L Normal 136 - 145 [facility] Comment on above: Performed By: #### B MP ####[facility] [id number] [place] [address] Urea nitrogen mass conc 9 mg/dL Normal 6 - 23 [facility] Comment on above: Performed By: #### B MP ####[facility] [id number] [place] [address] CBCon 08-27-2017 Erythrocyte distribution width Auto Ratio (RBC) 14.2 % Normal 11.5 - 14.5 [facility] Comment on above: Performed By: #### C BC ####[facility] [id number] [place] [address] Hematocrit Auto Volume Fraction (Bld) 36.2 % Normal 36.0 - 46.0 [facility] Comment on above: Performed By: #### C BC ####[facility] [id number] [place] [address] Hemoglobin mass conc (Bld) 11.7 g/dL Low 12.0 - 16.0 [facility] Comment on above: Performed By: #### C BC ####[facility] [id number] [place] [address] MCHC Auto mass conc (RBC) 32.3 g/dL Normal 32.0 - 36.0 [facility] Comment on above: Performed By: #### C BC ####[facility] [id number] [place] [address] MCV Auto Entitic volume (RBC) 98 fL Normal 80 - 100 [facility] Comment on above: Performed By: #### C BC ####[facility] [id number] [place] [address] Platelets Auto #/vol (Bld) 323 10*3/uL Normal 150 - 450 [facility] Comment on above: Performed By: #### C BC ####[facility] [id number] [place] [address] RBC Auto #/vol (Bld) 3.70 x10E12/L Low 4.00 - 5.20 [facility] Comment on above: Performed By: #### C BC ####[facility] [id number] [place] [address] WBC Auto #/vol (Bld) 10.5 10*3/uL Normal 4.4 - 11.3 [facility] Comment on above: Performed By: #### C BC ####[facility] [id number] [place] [address] Daily Progress Note-Cardiolo linn 08-27-2017 Protein mass conc Consult Type: subseq uent visit/care Service: Cardiology Subjective Data:KATHERINE JUDGE is a 82 year old Female who is Hospital Day # 2. Just returned from xray, states she feels a little better today, has not passedflatus yet, NG remains in place. Denies chest pain, shortness of breath,dizziness, or palpitations. Review of systems:Constitutional: negative for fever, chills, or malaiseNeuro: negative for dizziness, headache, numbness, tinglingENT: Negative for nasal congestion or sore throatResp: negative for shortness of breath, cough, or wheezingCV: negative for chest pain, palpitationsGI: negative for abd pain, nausea, vomiting or diarrheaGU: negative for dysuria, frequency, or urgencySkin: negative for lesions, wounds, or rashMusculoskeletal: Negative for weakness, myalgia, or arthralgiaEndocrine: Negative for polyuria or polydipsia. Overnight Events: Patient had an uneventful night. Objective Data: Objective Information:T [id number]/789 7%Date/Time08/27 14: 14: 14: 14: 14:57Range(36.7C - 37.2C ) (74 - 86 ) (16 - 19 ) (132 - 189 )/ (53 - 100 )(85% - 97% )Highest temp of 37.2 C was recorded at 08/27 14:57 Pain at Rest reported at 08/27 14:50: 5 Physical Exam: Constitutional: frail, elderly female. NAD. Alert and oriented.Eyes: PERRL, EOMI, clear scleraENMT: mucous membranes dry, no apparent injury, no lesions seenNG tube clampedHead/Neck: Neck supple, no apparent injury, thyroid without mass or tenderness,No JVD, trachea midline, no bruitsRespiratory/Thorax: Patent airways, CTAB, normal breath sounds with good chestexpansion, thorax symmetricCardiovascular: Regular, rate and rhythm, 1/6 NEREIDA, 2+ equal pulses of theextremities, normal S 1and S 2Gastrointestinal: softly distended. Tender. Hypoactive bowel sounds. Wellhealing midline incision.Musculoskeletal: ROM intact, no joint swelling, normal strengthExtremities: normal extremities, no cyanosis no edema, contusions or wounds, noclubbingNeurological: alert and oriented q9Hifcosjduwubu: Appropriate mood and behaviorSkin: Vergas, fair turgor, Warm and dry, no lesions, no rashes Medication: Medications: CARDIOVASCULAR AGENTS: 1. Nitroglycerin 2% Topical: 0.5 inch(es) Topical 2 Times a Day2. Metoprolol Injectable: 5 mg IntraVenous Push Every 4 Hours CENTRAL NERVOUS SYSTEM AGENTS: 1. Morphine Injectable: 1 mg IntraVenous Push Every 2 Hours PRN2. Ondansetron Injectable: 4 mg IntraVenous Push Every 4 Hours PRN GASTROINTESTINAL AGENTS: 1. Polyethylene Glycol: 17 gram(s) Oral Daily PRN NUTRITIONAL PRODUCTS: 1. Dextrose 5% - NaCL 0.45% with Potassium CL 20 mEq Premix Fluid: 1000 mLIntraVenous Recent Lab Results: Results: I have reviewed these laboratory results: Complete Blood Count 27-Aug-2017 06:33:00 ResultValueWhite Blood Cell Count 10.5Red Blood Cell Count 3.70 LHGB 11.7 LHCT 36.2MCV 98MCHC 32.3PLT 323RDW-CV 14.2 Basic Metabolic Panel 27-Aug-2017 06:33:00 ResultValueGlucose, Serum 132 HNA 143K 3.2 LCL 97 LBicarbonate, Serum 38 HAnion Gap, Serum 11BUN 9CREAT 0.54GFR-Non >60GFR- >60Calcium, Serum 9.0 Magnesium, Serum 27-Aug-2017 06:33:00 ResultValueMagnesium, Serum 1.95 Radiology Results: Results:I have reviewed this radiology result: Impression: No dilated loops of bowel. Xray Abdomen AP View [Aug 27 2017 9:39AM] Impression: Distal enteric tube is likely coiled within a large hiatal hernia. Xray Chest 1 View [Aug 26 2017 5:18AM] Impression: Evaluation of placement of nasogastric tube is limited secondary todistortion of anatomy from large hiatal hernia. The nasogastric tubeloops in the mid thorax which may possibly be near thegastroesophageal junction, however the tube does not extend withinthe gastric body. Repositioning of the nasogastric tube isrecommended. Large hiatal hernia and basilar atelectasis or airspace disease. Xray Chest 1 View [Aug 26 2017 2:44AM] Impression: Nasogastric tube is not definitely seen beyond the level of the midthoracic esophagus. Advancement of the tube is recommended asclinically able. Large hiatal hernia and basilar atelectasis orairspace disease. Xray Abdomen AP View [Aug 26 2017 2:38AM] Impression:Xray Abdomen AP View [Aug 26 2017 12:45AM] Impression: Postsurgical change of cecal resection. Dilatation of proximal smallbowel loops which measure up to 4.6 cm in diameter and nondistentionofdistal small bowel loops, findings highly concerning for bowelobstruction. Wall thickening of loop of small bowel in the inferiorpelvis posteriorly which may be infectious/inflammatory in etiology;ischemia is other differential consideration. Small bowel loops arecollapsed distal to this described segment of thickened small bowel,compatible with site of transition point. Small amount free fluid inthe pelvis. Stable large hiatal hernia. CT Abdomen and Pelvis with Contrast [Aug 25 2017 9:13PM] Assessment and Plan: Admitting Dx:Abdominal pain: Entered Date: 26-Aug-2017 03:10 Additional Dx:Essential hypertension: Entered Date: 26-Aug-2017 09:59CAD (coronary artery disease): Entered Date: 26-Aug-2017 09:59Hypercalcemia: Entered Date: 27-Jul-2017 07:35Encephalopathy: Entered Date: 26-Jul-2017 15:54Elevated serum creatinine: Entered Date: 16-Jul-2017 07:24Cecal volvulus: Entered Date: 16-Jul-2017 07:22Severe protein-calorie malnutrition (Carrera: less than 60% of standard weight):Entered Date: 12-Jul-2017 07:46Confusion and disorientation: Entered Date: 12-Jul-2017 07:43Clostridium difficile colitis: Entered Date: 10-Jul-2017 12:52Hypomagnesemia: Entered Date: 09-Jul-2017 14: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: EnteredDate: 09-Jul-2017 09:28Acute on chronic diastolic (congestive) heart failure: Entered Date:09-Jul-2017 09:28Hypokalemia: Entered Date: 08-Jul-2017 12:37Pulmonary edema: Entered Date: 06-Jul-2017 07:40Tachypnea: Entered Date: 06-Jul-2017 07:40S/P right hemicolectomy: Entered Date: 03-Jul-2017 00:33Small bowel obstruction: Entered Date: 02-Jul-2017 20:32NSTEMI (non-ST elevated myocardial infarction): Entered Date: 76-Hya-068515:25UTI (urinary tract infection), bacterial: Entered Date: 27-Dec-2016 20:58Anemia: Entered Date: 26-Dec-2016 19:03Lactic acidosis: Entered Date: 26-Dec-2016 19:03Leukocytosis, unspecified type: Entered Date: 26-Dec-2016 19:02Hypotension (arterial): Entered Date: 26-Dec-2016 19:02Pneumonia of right lower lobe due to infectious organism: Entered Date:26-Dec-2016 19:02Acute encephalopathy: Entered Date: 15-Jun-2014 11:11 Medical History:Failure to thrive: Entered Date: 28-Jul-2017 20:32Gastrocutaneous fistula: Entered Date: 05-Apr-2012 07:05Constipation: Entered Date: 04-Apr-2012 07:07Ileus: Entered Date: 14-Mar-2012 08:35Exploratory laparotomy: Entered Date: 09-Mar-2012 13:08Anemia due to unknown or multiple mechanisms (disorder): Entered Date:08-Mar-2012 06:47Transient ischemic colitis (disorder): Entered Date: 07-Mar-2012 07:55Protein malnutrition unspecified (disorder): Entered Date: 18-Feb-2012 07:07Hypokalemia (disorder): Entered Date: 15-Feb-2012 08:22Magnesium deficiency: Entered Date: 15-Feb-2012 08:22Colitis (disorder): Entered Date: 12-Feb-2012 06:59Small bowel obstruction (disorder): Entered Date: 11-Feb-2012 19:00Acute bowel obstruction: Onset Date: 11-Feb-2012, Entered Date: [id number] abdominal pain (finding): Entered Date: 11-Feb-2012 18:56 Chronic:Fluid overload pulmonary edema: Entered Date: 29-Aug-2012 07:41Clostridium difficile infection: Entered Date: 28-Aug-2012 07:25Chest pain: Entered Date: 28-Aug-2012 07:24Diarrhea: Entered Date: 25-Aug-2012 20:22 Other Dx/Proc:CHEST PAIN: Entered Date: 01-Sep-2012 08:07Unstable angina/chest pain: Entered Date: 28-Aug-2012 07:28Gastrointestinal bleeding: Entered Date: 25-Aug-2012 13:511 Colitis, 2 Abdomen Pain 3 Cholelithiasis: Onset Date: 03-Apr-2012, EnteredDate: 03-Apr-2012 01:45Heart failure: Entered Date: 12-Mar-2012 08:44PNEUMONIA: Entered Date: 11-Mar-2012 20:33Diabetes mellitus: Entered Date: 31-Dec-2011 14:04Abdominal pain: Entered Date: 28-Dec-2011 20:11Electrolyte imbalance: Entered Date: 25-Dec-2009 11:50Post CABG: Entered Date: 25-Dec-2009 11:50Coronary artery disease: Entered Date: 14-Dec-2009 11:48Non ST Elevation Myocardial Infarction (NSTEMI): Entered Date: [id number] angioplasty/stent (PCI): Entered Date: 12-Dec-2009 15:30Dyspnea: Entered Date: 12-Dec-2009 12:38Coronary atherosclerosis: Entered Date: 12-Dec-2009 12:38Left heart catheterization: Entered Date: 12-Dec-2009 12:36Hypotension: Entered Date: 09-Sep-2009 15:03Sepsis: Entered Date: 01-Aug-2009 02:21Venous thromboembolism: Entered Date: 31-Jul-2009 14:57 Assessment:1. SBOCT results reviewed.KUB shows no dilated bowel loopsNG tube in placeGI following, notes reviewed, KUB appears improved, will try suppository * Pt cleared for Abd. surgery if needed, mod. risk.EKG - SR, known RBBBCont. telemetry.Cont bet simon, IV d/t NPO, in perioperatively.Hold ASA and Plavix for OR - resume post op or if no surgery, when OK bySurgeon.Troponin for any ACS sxs.IVF while NPO, careful fluid mgmt. 2. HTNAccelerated.PO meds have been held d/t NPO statusCont IV Lopressor 5mg q4h.Cont NTG paste, 1/2 in. for BP control.Telemetry for IV lopressorMonitor for arrhythmias. 3. h/o CAD, stent, CABGAs above, Troponins if ACS sxs. - on admit negativeEKG- > SR, known Rt BBB, no change from office.ASA and Plavix on hold for OR - resume post op, or if pt not going to surgeryMaintain Hgb > 8.0Monitor I&OIV lopressorNTG paste for BP control. Electronic Signatures:Ventura Thacker) (Signed 28-Aug-2017 06:59)Authored: Signature/Cosignature/Attest ationCo-Signer: Service, Subjective Data, Objective Data, Assessment and Plan,Signature/Cosignature/A ttestationApril Nam (DANCE ARTIST-COMMUNITY LIVING SPECIALIST) (Signed 27-Aug-2017 15:41)Authored: Service, Subjective Data, Objective Data, Assessment and Plan,Signature/Cosignature/A ttestation Last Updated: 28-Aug-2017 06:59 by Ventura Thacker) Normal [facility] Daily Progress Note-Infectio us Diseaseon 08-27-2017 Protein mass conc Service: Infectious Disease Subjective Data:KATHERINE JUDGE is a 82 year old Female who is Hospital Day # 2. no fever, nauseated, abdominal pain, no emesis, no diarrhea. Overnight Events: Patient had an uneventful night. Objective Data: Objective Information:T [id number]/539 7%Date/Time08/27 6: 6: 6: 6: 6:42Range(36.7C - 37.8C ) (78 - 95 ) (16 - 19 ) (146 - 189 )/ (53 - 96 ) (85%- 97% )Highest temp of 37.8 C was recorded at 08/26 14:18 Pain at Rest reported at 08/27 1:17: 5 Physical Exam: Constitutional: Well developed, awake/alert/oriented x3, no distress, alert andcooperativeEyes: PERRL, EOMI, clear scleraENMT: mucous membranes moist, no apparent injury, no lesions seenHead/Neck: Neck supple, no apparent injury, thyroid without mass or tenderness,No JVD, trachea midline, no bruitsRespiratory/Thorax: Patent airways, CTAB, normal breath sounds with good chestexpansion, thorax symmetricCardiovascular: Regular, rate and rhythm, no murmurs, 2+ equal pulses of theextremities, normal S 1and S 2Gastrointestinal: Nondistended, soft, mild tenderness, no masses palpable, noorganomegaly, +BS, no bruitsExtremities: no cellulitisSkin: Warm and dry, no lesions, no rashes Medication: Medications: CARDIOVASCULAR AGENTS: 1. Nitroglycerin 2% Topical: 0.5 inch(es) Topical 2 Times a Day2. Metoprolol Injectable: 5 mg IntraVenous Push Every 4 Hours CENTRAL NERVOUS SYSTEM AGENTS: 1. Morphine Injectable: 1 mg IntraVenous Push Every 2 Hours PRN2. Ondansetron Injectable: 4 mg IntraVenous Push Every 4 Hours PRN NUTRITIONAL PRODUCTS: 1. Dextrose 5% - NaCL 0.45% with Potassium CL 20 mEq Premix Fluid: 1000 mLIntraVenous Recent Lab Results: Results: I have reviewed these laboratory results: Complete Blood Count [[id number] 06:33:00], Basic Metabolic Panel [Drawn 27-Aug-2017 06:33:00],Magnesium, Serum [Drawn 27-Aug-2017 06:33:00], Urinalysis [Drawn [id number]:47:00], Urinalysis, Microscopic [Drawn 25-Aug-2017 18:47:00], Lactate, Level[Drawn 25-Aug-2017 18:46:00]. Radiology Results: Results:Xray Chest 1 View [Aug 26 2017 5:18AM]Xray Chest 1 View [Aug 26 2017 2:44AM] Assessment and Plan:Assessment: 1. Abdominal pain / possble bowel obstruction 2. Hx of C. 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 Pyuria, asymptomatic Recommendations : Would watch of antibiotics Discussed with the surgery team Electronic Signatures:Nela Collado) (Signed 27-Aug-2017 09:31)Authored: Service, Assessment/Plan Review, Subjective Data, Objective Data,Assessment and Plan, Signature/Cosignature/Attest ation Last Updated: 27-Aug-2017 09:31 by Nela Collado) Normal [facility] Daily Progress Note-Medicine on 08-27-2017 Protein mass conc Service: Medicine Rick bjective Data:KATHERINE JUDGE is a 82 year old Female who is Hospital Day # 2. Reports feeling better today, less abdominal distension after NG was placed. Noflatus yet. Overnight Events: Patient had an uneventful night. Objective Data: Objective Information:T [id number]/6597% Date/Time08/27 11: 11: 6: 11: 11:11Range(36.7C - 37.8C ) (76 - 95 ) (16 - 19 ) (132 - 189 )/ (53 - 100 )(85% - 97% )Highest temp of 37.8 C was recorded at 08/26 14:18 Pain at Rest reported at 08/27 10:11: 6 Physical Exam: Constitutional: Frail malnourished elderly woman in mild distressEyes: PERLENMT: mucous membranes dry. NG in placeHead/Neck: Neck supple, no apparent injury, thyroid without mass or tenderness,No JVD, trachea midline, no bruitsRespiratory/Thorax: Patent airways, CTAB, normal breath sounds with good chestexpansion, thorax symmetricCardiovascular: Regular, rate and rhythm, no murmurs, 2+ equal pulses of theextremities, normal S 1and S 2Gastrointestinal: minimally distended and tender abdomen. BS negativeExtremities: no edemaNeurological: alert and oriented x3, intact senses, motor, response andreflexes, normal strengthPsychological: Appropriate mood and behaviorSkin: no rashes Medication: Medications: Continuous Medications ---- 1. Dextrose 5% - NaCL 0.45% with Potassium CL 20 mEq Premix Fluid: 1000 mLIntraVenous Scheduled Medications ---- 1. Metoprolol Injectable: 5 mg IntraVenous Push Every 4 Hours2. Nitroglycerin 2% Topical: 0.5 inch(es) Topical 2 Times a Day PRN Medications ---- 1. Morphine Injectable: 1 mg IntraVenous Push Every 2 Hours2. Ondansetron Injectable: 4 mg IntraVenous Push Every 4 Hours3. Polyethylene Glycol: 17 gram(s) Oral Daily Recent Lab Results: Results: I have reviewed these laboratory results: Complete Blood Count 27-Aug-2017 06:33:00 ResultValueWhite Blood Cell Count 10.5Red Blood Cell Count 3.70 LHGB 11.7 LHCT 36.2MCV 98MCHC 32.3PLT 323RDW-CV 14.2 Basic Metabolic Panel 27-Aug-2017 06:33:00 ResultValueGlucose, Serum 132 HNA 143K 3.2 LCL 97 LBicarbonate, Serum 38 HAnion Gap, Serum 11BUN 9CREAT 0.54GFR-Non >60GFR- >60Calcium, Serum 9.0 Magnesium, Serum 27-Aug-2017 06:33:00 ResultValueMagnesium, Serum 1.95 Comprehensive Metabolic Panel 25-Aug-2017 18:36:00 ResultValueGlucose, Serum 125 HNA 140K 3.9CL 99Bicarbonate, Serum 28Anion Gap, Serum 17BUN 14CREAT 0.91GFR-Non 59 AGFR- 71Calcium, Serum 10.3ALB 3.7ALKP 75T Pro 8.3 HT Bili 0.6Alanine Aminotransferase, Serum 16Aspartate Transaminase, Serum 19 Complete Blood Count + Differential 25-Aug-2017 18:15:00 ResultValueWhite Blood Cell Count 8.4Red Blood Cell Count 4.64HGB 15.0HCT 44.9MCV 97MCHC 33.4PLT 355RDW-CV 14.3Neutrophil % 72.1Immature Granulocytes % 0.6Lymphocyte % 22.5Monocyte % 4.2Eosinophil % 0.2Basophil % 0.4Neutrophil Count 6.07 HLymphocyte Count 1.89Monocyte Count 0.35Eosinophil Count 0.02Basophil Count 0.03 Radiology Results: Results: Impression: No dilated loops of bowel. Xray Abdomen AP View [Aug 27 2017 9:39AM] Assessment and Plan:Assessment:82-year-old woman with history of multiple abdominal surgeries who was in herusual state of health when she developed nausea later followed by vomiting,abdominal distention and abdominal pain. She denied fever, chills, sweats. Nodiarrhea. No melena or hematochezia. She presented to [facility] and CT of her abdomen and pelvis was read as showing findings consistentwith small bowel obstruction. [facility] We have been consulted to help with the management of hermedical problems which are as follows: hypertension, hyperlipidemia, coronaryartery disease status post CABG, depression, anxiety, gastroesophageal refluxdisease, and gout SBO- doing much better. KUB reports no dilated loops. NG is in. Hypokalemia- replaced HTN- better controlled with Nitro paste and Lopressor IV CAD/CABG- stable. Cardio on consult Depression/anxiety- in good spirits today DVT prx- SCDs Electronic Signatures:Maria Del Carmen Andino) (Signed 27-Aug-2017 12:54)Authored: Service, Subjective Data, Objective Data, Assessment and Plan,Signature/Cosignature/A ttestation Last Updated: 27-Aug-2017 12:54 by Maria Del Carmen Andino) Normal [facility] Daily Progress Note-Samarao n 08-27-2017 Protein mass conc Service: Surgery Sub jective Data:KATHERINE JUDGE is a 82 year old Female who is Hospital Day # 2. Additional Information:no flatus yet Objective Data: Objective Information:T [id number]/539 7%Date/Time08/27 6: 6: 6: 6: 6:42Range(36.7C - 37.8C ) (78 - 95 ) (16 - 19 ) (146 - 189 )/ (53 - 96 ) (85%- 97% )Highest temp of 37.8 C was recorded at 08/26 14:18 Pain at Rest reported at 08/27 1:17: 5 Physical Exam: Constitutional: Well developed, awake/alert/oriented x3, no distress, alert andcooperativeEyes: PERRL, EOMI, clear scleraENMT: mucous membranes moist, no apparent injury, no lesions seenHead/Neck: Neck supple, no apparent injury, thyroid without mass or tenderness,No JVD, trachea midline, no bruitsbruising satround noseRespiratory/Thorax: Patent airways, CTAB, normal breath sounds with good chestexpansion, thorax symmetricCardiovascular: + murmur. gallopGastrointestinal: softerless tenderGenitourinary: No Discharge, vesicles or other abnormalitiesMusculoskeletal : ROM intact, no joint swelling, normal strengthExtremities: normal extremities, no cyanosis edema, contusions or wounds, noclubbingSkin: Warm and dry, no lesions, no rashes Medication: Medications: Continuous Medications ---- 1. Dextrose 5% - NaCL 0.45% with Potassium CL 20 mEq Premix Fluid: 1000 mLIntraVenous Scheduled Medications ---- 1. Bisacodyl Rectal: 10 mg Rectal Once2. Metoprolol Injectable: 5 mg IntraVenous Push Every 4 Hours3. Nitroglycerin 2% Topical: 0.5 inch(es) Topical 2 Times a Day PRN Medications ---- 1. Morphine Injectable: 1 mg IntraVenous Push Every 2 Hours2. Ondansetron Injectable: 4 mg IntraVenous Push Every 4 Hours3. Polyethylene Glycol: 17 gram(s) Oral Daily Recent Lab Results: Results: I have reviewed these laboratory results: Complete Blood Count 27-Aug-2017 06:33:00 ResultValueWhite Blood Cell Count 10.5Red Blood Cell Count 3.70 LHGB 11.7 LHCT 36.2MCV 98MCHC 32.3PLT 323RDW-CV 14.2 Basic Metabolic Panel 27-Aug-2017 06:33:00 ResultValueGlucose, Serum 132 HNA 143K 3.2 LCL 97 LBicarbonate, Serum 38 HAnion Gap, Serum 11BUN 9CREAT 0.54GFR-Non >60GFR- >60Calcium, Serum 9.0 Magnesium, Serum 27-Aug-2017 06:33:00 ResultValueMagnesium, Serum 1.95 Assessment and Plan: Admitting Dx:Abdominal pain: Entered Date: 26-Aug-2017 03:10 Additional Dx:Essential hypertension: Entered Date: 26-Aug-2017 09:59CAD (coronary artery disease): Entered Date: 26-Aug-2017 09:59Hypercalcemia: Entered Date: 27-Jul-2017 07:35Encephalopathy: Entered Date: 26-Jul-2017 15:54Elevated serum creatinine: Entered Date: 16-Jul-2017 07:24Cecal volvulus: Entered Date: 16-Jul-2017 07:22Severe protein-calorie malnutrition (Carrera: less than 60% of standard weight):Entered Date: 12-Jul-2017 07:46Confusion and disorientation: Entered Date: 12-Jul-2017 07:43Clostridium difficile colitis: Entered Date: 10-Jul-2017 12:52Hypomagnesemia: Entered Date: 09-Jul-2017 14: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: EnteredDate: 09-Jul-2017 09:28Acute on chronic diastolic (congestive) heart failure: Entered Date:09-Jul-2017 09:28Hypokalemia: Entered Date: 08-Jul-2017 12:37Pulmonary edema: Entered Date: 06-Jul-2017 07:40Tachypnea: Entered Date: 06-Jul-2017 07:40S/P right hemicolectomy: Entered Date: 03-Jul-2017 00:33Small bowel obstruction: Entered Date: 02-Jul-2017 20:32NSTEMI (non-ST elevated myocardial infarction): Entered Date: 40-Qsn-[id number]:25UTI (urinary tract infection), bacterial: Entered Date: 27-Dec-2016 20:58Anemia: Entered Date: 26-Dec-2016 19:03Lactic acidosis: Entered Date: 26-Dec-2016 19:03Leukocytosis, unspecified type: Entered Date: 26-Dec-2016 19:02Hypotension (arterial): Entered Date: 26-Dec-2016 19:02Pneumonia of right lower lobe due to infectious organism: Entered Date:26-Dec-2016 19:02Acute encephalopathy: Entered Date: 15-Jun-2014 11:11 Medical History:Failure to thrive: Entered Date: 28-Jul-2017 20:32Gastrocutaneous fistula: Entered Date: 05-Apr-2012 07:05Constipation: Entered Date: 04-Apr-2012 07:07Ileus: Entered Date: 14-Mar-2012 08:35Exploratory laparotomy: Entered Date: 09-Mar-2012 13:08Anemia due to unknown or multiple mechanisms (disorder): Entered Date:08-Mar-2012 06:47Transient ischemic colitis (disorder): Entered Date: 07-Mar-2012 07:55Protein malnutrition unspecified (disorder): Entered Date: 18-Feb-2012 07:07Hypokalemia (disorder): Entered Date: 15-Feb-2012 08:22Magnesium deficiency: Entered Date: 15-Feb-2012 08:22Colitis (disorder): Entered Date: 12-Feb-2012 06:59Small bowel obstruction (disorder): Entered Date: 11-Feb-2012 19:00Acute bowel obstruction: Onset Date: 11-Feb-2012, Entered Date: [id number] abdominal pain (finding): Entered Date: 11-Feb-2012 18:56 Chronic:Fluid overload pulmonary edema: Entered Date: 29-Aug-2012 07:41Clostridium difficile infection: Entered Date: 28-Aug-2012 07:25Chest pain: Entered Date: 28-Aug-2012 07:24Diarrhea: Entered Date: 25-Aug-2012 20:22 Other Dx/Proc:CHEST PAIN: Entered Date: 01-Sep-2012 08:07Unstable angina/chest pain: Entered Date: 28-Aug-2012 07:28Gastrointestinal bleeding: Entered Date: 25-Aug-2012 13:511 Colitis, 2 Abdomen Pain 3 Cholelithiasis: Onset Date: 03-Apr-2012, EnteredDate: 03-Apr-2012 01:45Heart failure: Entered Date: 12-Mar-2012 08:44PNEUMONIA: Entered Date: 11-Mar-2012 20:33Diabetes mellitus: Entered Date: 31-Dec-2011 14:04Abdominal pain: Entered Date: 28-Dec-2011 20:11Electrolyte imbalance: Entered Date: 25-Dec-2009 11:50Post CABG: Entered Date: 25-Dec-2009 11:50Coronary artery disease: Entered Date: 14-Dec-2009 11:48Non ST Elevation Myocardial Infarction (NSTEMI): Entered Date: [id number] angioplasty/stent (PCI): Entered Date: 12-Dec-2009 15:30Dyspnea: Entered Date: 12-Dec-2009 12:38Coronary atherosclerosis: Entered Date: 12-Dec-2009 12:38Left heart catheterization: Entered Date: 12-Dec-2009 12:36Hypotension: Entered Date: 09-Sep-2009 15:03Sepsis: Entered Date: 01-Aug-2009 02:21Venous thromboembolism: Entered Date: 31-Jul-2009 14:57 Assessment:by my interpretation kub looks betterkeep ngttry suppository Electronic Signatures:Jessenia Tapia) (Signed 27-Aug-2017 09:36)Authored: Service, Subjective Data, Objective Data, Assessment and Plan,Signature/Cosignature/A ttestation Last Updated: 27-Aug-2017 09:36 by Jessenia Tapia) [facility] EMR ADDONon 08-27-2017 ADDON CONFIRMATION REQUEST REC'D [facility] Comment on above: Performed By: #### E MRAD ####[id number] [place] [address] MAGNESIUMon 08-27-2017 Magnesium mass conc 1.95 mg/dL Normal 1.60 - 2.40 [facility] Comment on above: Performed By: #### M G ####[id number] [place] [address] Admission Risk Screen - Adul ton 08-26-2017 Admission Risk Screen - Adult Allergies: Allergies:? Lincocin: Rash? penicillin: Rash? tetracycline: Rash? erythromycin: Rash? Keflex: Syncope? Lunesta: Unknown? penicillin G benzathine: Unknown? Biaxin: Unknown? trazodone: Unknown? Clindamycin Hydrochloride: Unknown? aspirin: GI Bleeding? Vioxx: Bleeding? NSAIDs: GI Bleeding? Mold/Fungi: Unknown? Pollen: Unknown Intolerances:? Ativan: Confusion? Restoril: Confusion Patient Verification:? New W ID Band Applied in my Departmentyes? Patient Identity Verified Bypatient? ID Band FULL Name, include Middle, spelling matches patient's ID used forverificationyes? ID Band Matches Patient ID used for Verficationyes? ID Band MRN Matches EMR MRNyes Advance Directive:? Advance Directive Medicalyes? Advance Directive typeDurable Power of Sap Bw Consultant for Healthcare? Durable Power of Sap Bw Consultant AvailabilityDPOA not available now? Durable Power of Sap Bw Consultant [id number]? Durable Power of Sap Bw Consultant contact (name and number)Ganga Judge? Advance Directive Mental Healthnot applicable Falls Screen:Type of AssessmentadmissionModerate Risk Factorspatient care equipment (scds, iv?s, chest tubes, soto,etc)High Risk Factorsgait instabilityRisk for Injury Associated with Fallrisk of surgical complications postsurgery (recent abdominal, thoracic surgery, lower limb amputation)Fall Risk Conclusionhigh falls risk with risk for associated injuryUniversal Safety InterventionsWDL *orient to call system *instruct to call forassistance before getting out of bed *non-slip footwear when patient is out ofbed *call hoffman in reach *personal items and telephone in reach *physically safeenvironment (no spills or clutter) *bed in lowest position with wheels locked*appropriate side rails in place *room/bathroom lighting operational, lightcord in reach *appropriate signage on doorFall and Injury Risk Interventionssupervised toileting (mandatory for all highrisk patients), exit (bed/chair) alarms (mandatory for all high risk patients),educate patient/family for risk for injury (fractures and bleeding), do notleave patient unattended while in the bathroom Family Violence Screen:? Are you or have you been threatened or abused physically, emotionally, orsexually by anyone?no? Do you feel UNSAFE going back to the place where you are living?no? Clinical assessment: Are there any apparent signs of injuries/behaviors thatcould be related to abuse/neglectno? Social Service Consult for abuse/neglect needed this visit?no Functional screen:? Functional Screen: In the recent/past 2-4 weeks, patient or family havenoticedno issues that require a rehabilitation consult at this time Learning Assessment (Patient):? Patient is Able to be Assessed for Learningyes? Factors Influencing Readiness to Learnpain? Factors that Impact Ability to Learnnone? Devices/Methods Used to Communicatenone? Learning Preferencesverbal instruction; written material? Cultural Considerationsnone? Developmental Considerationsnone? Restoration Considerationsnone Learning Assessment (Other Learner):? Other learner availableno Suicide/Depression Screen:? During the past month, have you often been bothered by feeling down,depressed or hopeless?no? During the past month, have you often had little interest or pleasure indoing things?no? Have you had any thoughts of harming yourself?no? Have you had any thoughts of harming anyone else?no Adult Nutrition Screen:? Have you recently lost weight without tryingno? Have you been eating poorly because of a decreased appetiteno? MST Score0? RiskMST = 0 or 1 Not at risk. Eating well with little or no weight loss? Nutrition Consult needed this visit?no? Can Patient Participate in Room Service?yes? Patient requires Paper Dishes/Plastic Utensilsno Pain Screen:? Pain Scalenumerical 0-10? Pain Scale Educationteaching provided? Current Pain Level6 = Moderate? Acceptable Pain Level3 = Mild? Expression of Pain (nonverbal)moaning, verbalization? Chronic Painno Spiritual Screen:? Are there any cultural, spiritual, scientology practices/values/needs that areimportant for us to know?no CAGE:Is this an injured patient at a Trauma Center ([facility] / [place]): no Vaccinations:Vaccination - Influenza Vaccination Screen:? Is it flu season? (between and )No Vaccination - Pneumonia Vaccination Screen:? Patient has received a previous pneumonia vaccine:yes Moustapha:Skin - Moustapha Scale: ? Moustapha: Sensory Perception (response to environment)(4) no impairment? Moustapha: Moisture (degree skin exposed to moisture)(4) rarely moist? Moustapha: Activity (ability to walk)(3) walks occasionally? Moustapha: Mobility (amount/control of body movement)(3) slightly limited? Moustapha: Nutrition (quality of food intake)(2) probably inadequate? Moustapha: Friction and Shear(3) no apparent problem? Moustapha: Score19 Significant Indicatiors:Significant Indicators: Complete Pressure Injury:Pressure Injury Present on Admissionno Electronic Signatures:Sylvain Gilbert (RN) (Signed 26-Aug-2017 04:19)Authored: Admission Risk Screens, Vaccinations, Moustapha, Pressure Injury Last Updated: 26-Aug-2017 04:19 by Sylvain Gilbert (RN) [facility] CHEST 1 VIEWon 08-26-2017 CHEST 1 VIEW Name: KATHERINE JUDGE STUDY:TH CHEST 1 VIEW; 08/26/2017 4:08 am INDICATION:Signs/Symptoms: NG tube placement. COMPARISON:08/26/2017 ORDERING CLINICIAN:JESSENIA TAPIA FINDINGS:LINES, TUBES, DEVICES:Enteric tube is coiled within the right lower thorax likely within alarge hiatal hernia. Status post median sternotomy. LUNGS:Mild interstitial prominence and bibasilar opacities likelyatelectasis. No pulmonary consolidation, pleural effusion orpneumothorax. CARDIOMEDIASTINAL SILHOUETTE:Cardiomediastinal silhouette is stable in size and configuration. ABDOMEN:No remarkable upper abdominal findings. BONES:Levoscoliosis with multilevel degenerative changes and osteopenia.Remote appearing right lower rib fracture. CT pen is presumed to be exterior to the patient. IMPRESSION:Distal enteric tube is likely coiled within a large hiatal hernia.Electronically signed by: NYLA PARKER DO [facility] CHEST 1 VIEW Name: KATHERINE JUDGE STUDY:TH CHEST 1 VIEW; 08/26/2017 1:19 am INDICATION:Nasogastric tube adjustment. COMPARISON:Chest radiograph earlier on 08/26/2017, CT abdomen and pelvis 08/25/2017 ORDERING CLINICIAN:SPENCER HARDY FINDINGS:Evaluation of placement of the nasogastric tube is limited secondaryto distortion of the anatomy from large hiatal hernia. Nasogastrictube loops in the mid thorax. Postsurgical change with sternotomywires. There is stable cardiomegaly. Stable large hiatal hernia andbasilar atelectasis or airspace disease. No evidence of pneumothorax.Chronic fracture deformity of right humeral neck. IMPRESSION:Evaluation of placement of nasogastric tube is limited secondary todistortion of anatomy from large hiatal hernia. The nasogastric tubeloops in the mid thorax which may possibly be near thegastroesophageal junction, however the tube does not extend withinthe gastric body. Repositioning of the nasogastric tube isrecommended. Large hiatal hernia and basilar atelectasis or airspace disease. Electronically signed by: LEANN PATEL MD [facility] CHEST 1 VIEW Name: KATHERINE JUDGE STUDY:TH CHEST 1 VIEW; 08/26/2017 12:45 am INDICATION:Signs/Symptoms: NG placement. COMPARISON:CT08/25/2017 ORDERING CLINICIAN:SPENCER HARDY FINDINGS:Nasogastric tube is not definitely seen beyond the level of the midthoracic esophagus. Postsurgical change with sternotomy wires. Thereis cardiomegaly. There is a large hiatal hernia which corresponds tothe lucency the lung bases. Bibasilar opacities may correspond toatelectasis or airspace disease. Right lower rib fractures. Chronicfracture deformity right humeral neck. IMPRESSION:Nasogastric tube is not definitely seen beyond the level of the midthoracic esophagus. Advancement of the tube is recommended asclinically able. 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 [facility] ago with FTT, nausea, dehydration, and RADHA.Discharged to SNF. [facility] yesterday developed abdominal discomfort andvomiting. Appetite not as goo yesterday. [facility] has had daily BM's. Statesabd. discomfort and distention.Denies CP, fever, chills, no abd blood in stools. Sent to [facility] ER, CT ofher abdomen and pelvis was read as showing findings consistent with small bowelobstruction. [facility].Pt is known to me, h/o HTN, Aortic stenosis, CABG. She denies any CHF or ACSsxs.Troponin x1 0.02.BP elevated 188/90 - states no meds 24 hrs d/t N&V and abd discomfort. PMH: coronary artery disease, status post 2013 circumflex angioplasty, statuspost CABG, last cath patent SVG to the RCA, atretic STRONG to the obtusemarginal, mild diffuse disease in the left main and LAD. hypertension, hyperlipidemia, anemia, and gastrointestinal bleeding. Review Family/Social History and ROS:Family History:Family History: reviewed and not pertinent to presenting problem Social History: Smoking Status: never smokerAlcohol Use: deniesDrug Use: deniesSocial History:Usually at home, independent, son near by Constitutional: POSITIVE: Anorexia, Weight Loss, Malaise; NEGATIVE: Fever,Chills Eyes: NEGATIVE: Blurry Vision, Drainage, Diploplia, Redness, Vision Loss/Change ENMT: NEGATIVE: Nasal Discharge, Nasal Congestion, Ear Pain, Mouth Pain, ThroatPain Respiratory: NEGATIVE: Dry Cough, Productive Cough, Hemoptysis, Wheezing,Shortness of Breath Cardiac: NEGATIVE: Chest Pain, Dyspnea on Exertion, Orthopnea, Palpitations,Syncope Gastrointestinal: POSITIVE: Nausea, Vomiting, Abdominal Pain; NEGATIVE:Diarrhea, Constipation Genitourinary: NEGATIVE: Discharge, Dysuria, Flank Pain, Frequency, Hematuria Musculoskeletal: POSITIVE: Weakness; NEGATIVE: Decreased ROM, Pain, Swelling,Stiffness Neurological: NEGATIVE: Dizziness, Confusion, Headache, Seizures, Syncope Psychiatric: NEGATIVE: Mood Changes, Anxiety, Hallucinations, Sleep Changes,Suicidal Ideas Skin: NEGATIVE: Mass, Pain, Pruritus, Rash, Ulcer Endocrine: NEGATIVE: Heat Intolerance, Cold Intolerance, Sweat, Polyuria,Thirst Allergies:? Lincocin: Rash? penicillin: Rash? tetracycline: Rash? erythromycin: Rash? Keflex: Syncope? Lunesta: Unknown? penicillin G benzathine: Unknown? Biaxin: Unknown? trazodone: Unknown? Clindamycin Hydrochloride: Unknown? aspirin: GI Bleeding? Vioxx: Bleeding? NSAIDs: GI Bleeding? Mold/Fungi: Unknown? Pollen: Unknown Intolerances:? Ativan: Confusion? Restoril: Confusion Objective: Objective Information: T [id number]% Date/Time08/26 16:257/18 16: [id number]:08718 16: 16:29Range(36C - 37.8C ) (78 - 95 ) (16 - 16 ) (146 - 185 )/ (69 - 96 ) (85% -96% )Highest temp of 37.8 C was recorded at 08/26 14:18 Weights08/26 4:19: Weight in kg (Weight (kg)) 40.6718 4:19: Weight in lbs ((lbs)) 89.6718 4:19: BMI (kg/m2) (BMI (kg/m2)) 17.48 Pain at Rest reported at 08/26 8:35: 0 TELE SR Physical Exam: Constitutional: frail, elderly female. NAD. Alert and oriented.Eyes: PERRL, EOMI, clear scleraENMT: mucous membranes moist, no apparent injury, no lesions seenNG to LISx, large amt. ly green drg.Head/Neck: Neck supple, no apparent injury, thyroid without mass or tenderness,No JVD, trachea midline, no bruitsRespiratory/Thorax: LCTA. non-labored.Cardiovascular: Regular, rate and rhythm, 1/6 NEREIDA, 2+ equal pulses of theextremities, normal S 1and S 2Gastrointestinal: softly distended. Tender. Hypoactive bowel sounds. Wellhealing midline incision.Genitourinary: deferred.Musculoskeletal: ROM intact, no joint swelling, normal strengthExtremities: normal extremities, no cyanosis no edema, contusions or wounds, noclubbingNeurological: alert and oriented x3, intact senses, motor, response andreflexes, normal strengthPsychological: Appropriate mood and behaviorSkin: Vergas, fair turgor, Warm and dry, no lesions, no rashes Medications: Medications: Continuous Medications ---- 1. Dextrose 5% - NaCL 0.45% with Potassium CL 20 mEq Premix Fluid: 1000 mLIntraVenous Scheduled Medications ---- 1. Metoprolol Injectable: 5 mg IntraVenous Push Every 4 Hours2. Nitroglycerin 2% Topical: 0.5 inch(es) Topical 2 Times a Day PRN Medications ---- 1. Morphine Injectable: 1 mg IntraVenous Push Every 2 Hours2. Ondansetron Injectable: 4 mg IntraVenous Push Every 4 Hours Recent Lab Results: Results: I have reviewed these laboratory results: Urinalysis 25-Aug-2017 18:47:00 ResultValueColor, Urine YELLOW Reference Range: STRAW,YELLOWAppearance, Urine HAZYSpecific Max, Urine 1.013pH, Urine 6.0Protein, Urine NEGATIVEGlucose, Urine NEGATIVEBlood, Urine NEGATIVEKetones, Urine NEGATIVEBilirubin, Urine NEGATIVEUrobilinogen, Urine <2.0Nitrite, Urine NEGATIVELeukocyte Esterase, Urine TRACE A Lactate, Level 25-Aug-2017 18:46:00 ResultValueLactate, Level 0.8 Comprehensive Metabolic Panel 25-Aug-2017 18:36:00 ResultValueGlucose, Serum 125 HNA 140K 3.9CL 99Bicarbonate, Serum 28Anion Gap, Serum 17BUN 14CREAT 0.91GFR-Non 59 AGFR- 71Calcium, Serum 10.3ALB 3.7ALKP 75T Pro 8.3 HT Bili 0.6Alanine Aminotransferase, Serum 16Aspartate Transaminase, Serum 19 Lipase, Serum 25-Aug-2017 18:36:00 ResultValueLipase, Serum 51 Troponin I, Serum 25-Aug-2017 18:36:00 ResultValueTroponin I, Serum <0.02 Complete Blood Count + Differential 25-Aug-2017 18:15:00 ResultValueWhite Blood Cell Count 8.4Red Blood Cell Count 4.64HGB 15.0HCT 44.9MCV 97MCHC 33.4PLT 355RDW-CV 14.3Neutrophil % 72.1Immature Granulocytes % 0.6Lymphocyte % 22.5Monocyte % 4.2Eosinophil % 0.2Basophil % 0.4Neutrophil Count 6.07 HLymphocyte Count 1.89Monocyte Count 0.35Eosinophil Count 0.02Basophil Count 0.03 Radiology Results: Results: Impression: Distal enteric tube is likely coiled within a large hiatal hernia. Xray Chest 1 View [Aug 26 2017 5:18AM] Impression: Postsurgical change of cecal resection. Dilatation of proximal smallbowel loops which measure up to 4.6 cm in diameter and nondistentionofdistal small bowel loops, findings highly concerning for bowelobstruction. Wall thickening of loop of small bowel in the inferiorpelvis posteriorly which may be infectious/inflammatory in etiology;ischemia is other differential consideration. Small bowel loops arecollapsed distal to this described segment of thickened small bowel,compatible with site of transition point. Small amount free fluid inthe pelvis. Stable large hiatal hernia. CT Abdomen and Pelvis with Contrast [Aug 25 2017 9:13PM] Conclusion:Electrocardiogram 12 Lead [Jul 31 2017 9:45AM] Conclusion:CONCLUSIONS: 1. The left ventricular systolic function is hyperdynamic with a 65-70%estimated ejection fraction. 2. Spectral Doppler shows a pseudonormal pattern of left ventricular diastolicfilling. 3. The left atrium is moderately dilated. 4. There is mild to moderate tricuspid regurgitation. 5. Mild aortic valve stenosis. 6. There is mild aortic valve regurgitation. 7. Moderately elevated pulmonary artery pressure.QUANTITATIVE DATA SUMMARY:2D MEASUREMENTS: Normal Ranges:Ao Root d: 2.40 cm (2.0-3.7cm)LAs: 2.60 cm (2.7-4.0cm)IVSd: 1.28 cm (0.6-1.1cm)LVPWd: 1.20 cm (0.6-1.1cm)LVIDd: 3.86 cm (3.9-5.9cm)LVIDs: 2.42 cmLV Mass Index: 118.5 g/m2LV % FS 37.3 %LA VOLUME: Normal Ranges:LA Vol A4C: 71.2 ml (22+/-6mL/m2)LA Vol A2C: 58.5 mlLA Vol BP: 67.3 mlLA Vol Index A4C: 46.3ml/m2LA Vol Index A2C: 38.0 ml/m2LA Vol Index BP: 43.8 ml/m2LA Area A4C: 22.2 cm2LA Area A2C: 19.3 cm2LA [place] A4C: 5.9 cmLA [place] A2C: 5.4 cmLA Volume Index: 40.5 ml/m2RA VOLUME BY A/L METHOD: Normal Ranges:RA Vol A4C: 17.8 ml (8.3-19.5ml)RA Vol Index A4C: 11.5 ml/m2RA Area A4C: 9.6 cm2RA [place] A4C: 4.4 cmM-MODE MEASUREMENTS: Normal Ranges:Ao Root: 2.10 cm (2.0-3.7cm)LAs: 3.50 cm (2.7-4.0cm)AORTA MEASUREMENTS: Normal Ranges:Asc Ao, d: 2.60 cm (2.1-3.4cm)Ao Arch: 2.60 cm (2.0-3.6cm)LV SYSTOLIC FUNCTION BY 2D PLANIMETRY (MOD): Normal Ranges:EF-A4C View: 66.7 % (>55%)EF-A2C View: 61.0 %EF-Biplane: 62.3 %LV DIASTOLIC FUNCTION: Normal Ranges:MV Peak E: 1.30 m/s (0.7-1.2 m/s)MV Peak A: 1.40 m/s (0.42-0.7 m/s)E/A Ratio: 0.93 (1.0-2.2)MV lateral e' 0.13 m/sMV medial e' 0.12 m/sMV A Dur: 148.00 msecPulmV Sys Tiffany: 81.60 cm/sPulmV Man Tiffany: 65.40 cm/sPulmV S/D Tiffany: 1.20PulmV A Revs Tiffany: 31.90 cm/sPulmV A Revs Dur: 120.00 msecMITRAL VALVE: Normal Ranges:MV DT: 208 msec (150-240msec)MITRAL INSUFFICIENCY: Normal Ranges:dP/dt: 606 mmHg/s (>1200mmHg/sec)AORTIC VALVE: Normal Ranges:AoV Vmax: 2.88 m/s (<1.7m/s)AoV Peak P.2 mmHg (<20mmHg)AoV Mean P.0 mmHg (1.7-11.5mmHg)LVOT Max Tiffany: 1.30 m/s (<1.1m/s)AoV VTI: 60.30 cm (18-25cm)LVOT VTI: 28.80 cmLVOT Diameter: 1.80 cm (1.8-2.4cm)AoV Area, VTI: 1.22 cm2 (2.5-5.5cm2)AoV Area,Vmax: 1.15 cm2 (2.5-4.5cm2)AoV Dimensionless Index: 0.48RIGHT VENTRICLE:RV 1 3.77 cmRV 2 3.58 cmRV 3 6.68 cmTAPSE: 18.6 mmRV s' 0.20 m/sTRICUSPID VALVE/RVSP: Normal Ranges:Peak TR Velocity: 3.45 m/sRV Syst Pressure: 52.6 mmHg (< 30mmHg)IVC Diam: 1.26 cmPULMONIC VALVE: Normal Ranges:PV Max Tiffany: 1.5 m/s (0.6-0.9m/s)PV Max P.8 mmHgPIEDV: 1.72 m/sPADP: 16.8 mmHgPulmonary Veins:PulmV A Revs Dur: 120.00 msecPulmV A Revs Tiffany: 31.90 cm/sPulmV Man Tiffany: 65.40 cm/sPulmV S/D Tiffany: 1.20PulmV Sys Tiffany: 81.60 cm/s Echocardiogram [Jul 08 2017 11:10AM] Assessment:1. SBOCT results reviewed.NG tube in place, noted large amount drg.Possible need for ORprevious records [facility] obtained and reviewedOffice records obtained and reviewed. * Pt cleared for Abd. OR, mod. risk.EKG today - SR, known RBBBCont. telemetry.Cont bet simon, IV d/t NPO, in perioperatively.Hold ASA and Plavix for OR - resume post op when OK by Surgeon.Troponin for any ACS sxs.IVF while NPO, careful fluid mgmt. 2. HTNAccelerated.PO meds have been held d/t NPO statusStart IV Lopressor 5mg q4h.Start NTG paste, 1/2 in. for BP control.Telemetry for IV lopressorMonitor for arrhythmias. 3. h/o CAD, stent, CABGAs above, Troponins if ACS sxs. - on admit negativeEKG today - > SR, known Rt BBB, no change from office.ASA and Plavix on hold for OR - resume post opMaintain Hgb > 8.0Monitor I&OIV lopressorNTG paste for BP control. Electronic Signatures:Ventura Thacker) (Signed 26-Aug-2017 18:16)Authored: Service, History of Present Illness, Review Family/Social Historyand ROS, Allergies, Objective, Assessment/Recommendations,S ignature/Cosignature/Attesta tion Last Updated: 26-Aug-2017 18:16 by Ventura Thacker) [facility] Consult-Infectious Diseaseon 08-26-2017 Consult-Infectious Disease Service:Service: Infectious Disease Consult:Consult requested by (Attending Name): Dr Phillips: possible C. 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 Social History: Social History: denies smoking, alcohol and drug useSocial History:pneumonia vaccine is up to date Constitutional: NEGATIVE: Fever, Chills, Anorexia, Weight Loss, Malaise Eyes: NEGATIVE: Blurry Vision, Drainage, Diploplia, Redness, Vision Loss/Change ENMT: NEGATIVE: Nasal Discharge, Nasal Congestion, Ear Pain, Mouth Pain, ThroatPain Respiratory: NEGATIVE: Dry Cough, Productive Cough, Hemoptysis, Wheezing,Shortness of Breath Cardiac: NEGATIVE: Chest Pain, Dyspnea on Exertion, Orthopnea, Palpitations,Syncope Gastrointestinal: POSITIVE: Vomiting, Abdominal Pain; NEGATIVE: Nausea,Diarrhea, Constipation Genitourinary: NEGATIVE: Discharge, Dysuria, Flank Pain, Frequency, Hematuria Musculoskeletal: NEGATIVE: Decreased ROM, Pain, Swelling, Stiffness, Weakness Neurological: NEGATIVE: Dizziness, Confusion, Headache, Seizures, Syncope Psychiatric: NEGATIVE: Mood Changes, Anxiety, Hallucinations, Sleep Changes,Suicidal Ideas Skin: NEGATIVE: Mass, Pain, Pruritus, Rash, Ulcer Endocrine: NEGATIVE: Heat Intolerance, Cold Intolerance, Sweat, Polyuria,Thirst Hematologic/Lymph: NEGATIVE: Anemia, Bruising, Easy Bleeding, Night Sweats,Petechiae Allergic/Immunologic: NEGATIVE: Anaphylaxis, Itchy/ Teary Eyes, Itching,Sneezing, Swelling All Other Systems: All other systems reviewed and are negative Allergies:? Lincocin: Rash? penicillin: Rash? tetracycline: Rash? erythromycin: Rash? Keflex: Syncope? Lunesta: Unknown? penicillin G benzathine: Unknown? Biaxin: Unknown? trazodone: Unknown? Clindamycin Hydrochloride: Unknown? aspirin: GI Bleeding? Vioxx: Bleeding? NSAIDs: GI Bleeding? Mold/Fungi: Unknown? Pollen: Unknown Intolerances:? Ativan: Confusion? Restoril: Confusion Objective: Objective Information: T [id number]% Date/Time08/26 5: 5: 5: 5: 5:08Range(36C - 36.6C ) (84 - 88 ) (16 - 16 ) (183 - 185 )/ (93 - 95 ) (90% -90% ) Weights718 4:19: Weight in kg (Weight (kg)) 40.67/18 4:19: Weight in lbs ((lbs)) 89.67/18 4:19: BMI (kg/m2) (BMI (kg/m2)) 17.48, nutritional consult Physical Exam: Constitutional: Well developed, awake/alert/oriented x3, no distress, alert andcooperativeEyes: PERRL, EOMI, clear scleraENMT: mucous membranes moist, no apparent injury, no lesions seenHead/Neck: Neck supple, no apparent injury, thyroid without mass or tenderness,No JVD, trachea midline, no bruitsRespiratory/Thorax: Patent airways, CTAB, normal breath sounds with good chestexpansion, thorax symmetricCardiovascular: Regular, rate and rhythm, no murmurs, 2+ equal pulses of theextremities, normal S 1and S 2Gastrointestinal: Nondistended, soft, mild mid abdomen tenderness, no massespalpable, no organomegaly, +BS, no bruits, the incision is healed, nocellulitisGenitourinary: No Discharge, vesicles or other abnormalitiesMusculoskeletal : no effusionExtremities: no cellulitisNeurological: no lateralizing signsLymphatic: No significant lymphadenopathyPsychological : Appropriate mood and behaviorSkin: Warm and dry, no lesions, no rashes Medications: Medications: CENTRAL NERVOUS SYSTEM AGENTS: 1. Morphine Injectable: 1 mg IntraVenous Push Every 2 Hours PRN2. Ondansetron Injectable: 4 mg IntraVenous Push Every 4 Hours PRN NUTRITIONAL PRODUCTS: 1. Lactated Ringers Infusion: 1000 mL IntraVenous Recent Lab Results: Results: I have reviewed these laboratory results: Urinalysis [Drawn [id number]:47:00], Urinalysis, Microscopic [Drawn 25-Aug-2017 18:47:00], Lactate, Level[Drawn 25-Aug-2017 18:46:00], Comprehensive Metabolic Panel [Drawn [id number]:36:00], Lipase, Serum [Drawn 25-Aug-2017 18:36:00], Troponin I, Serum [[id number] 18:36:00], Complete Blood Count + Differential [Drawn 16-[id number]:15:00], Basic Metabolic Panel [Drawn 21-Aug-2017 16:22:00], Complete BloodCount [Drawn 21-Aug-2017 16:22:00]. Radiology Results: Results:Xray Chest 1 View [Aug 26 2017 5:18AM]Xray Chest 1 View [Aug 26 2017 2:44AM]Xray Abdomen AP View [Aug 26 2017 2:38AM]CT Abdomen and Pelvis with Contrast [Aug 25 2017 9:13PM] Assessment: 1. Abdominal pain / possble bowel obstruction 2. Hx of C. 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 Pyuria, asymptomatic Recommendations : Would watch of antibiotics Electronic Signatures:Nela Collado) (Signed 26-Aug-2017 09:12)Authored: Service, History of Present Illness, Past Medical/Surgical History,Review Family/Social History and ROS, Allergies, Objective,Assessment/Recomme ndations, Signature/Cosignature/Attest ation Last Updated: 26-Aug-2017 09:12 by Nela Collado) [facility] Consult-Medicineon 8 Consult-Medicine Service:Service: Med icine Consult:Consult requested by (Attending Name): Dr Phillips: Management of HTN and other medical problems History of Present Illness:Admission Reason: SBOHPI:This is an 82-year-old female with history of multiple abdominalsurgeries who was in her usual state of health until noon yesterday when shedeveloped nausea later followed by vomiting, abdominal distention and abdominalpain. She denied fever, chills, sweats. No diarrhea. No melena orhematochezia. She presented [facility] ED and CT of her abdomenand pelvis was read as showing findings consistent with small bowelobstruction. [facility] 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 Social History: Smoking Status: never smokerAlcohol Use: deniesDrug Use: deniesOccupation: RetiredSocial History: and has 1 child. Constitutional: COMMENTS: See HPI Eyes: NEGATIVE: Blurry Vision, Drainage, Diploplia, Redness, Vision Loss/Change ENMT: NEGATIVE: Nasal Discharge, Nasal Congestion, Ear Pain, Mouth Pain, ThroatPain Respiratory: NEGATIVE: Dry Cough, Productive Cough, Hemoptysis, Wheezing,Shortness of Breath Cardiac: NEGATIVE: Chest Pain, Dyspnea on Exertion, Orthopnea, Palpitations,Syncope Gastrointestinal: COMMENTS: See HPI Genitourinary: NEGATIVE: Discharge, Dysuria, Flank Pain, Frequency, Hematuria Musculoskeletal: NEGATIVE: Decreased ROM, Pain, Swelling, Stiffness, Weakness Endocrine: NEGATIVE: Heat Intolerance, Cold Intolerance, Sweat, Polyuria,Thirst Hematologic/Lymph: NEGATIVE: Anemia, Bruising, Easy Bleeding, Night Sweats,Petechiae Allergic/Immunologic: NEGATIVE: Anaphylaxis, Itchy/ Teary Eyes, Itching,Sneezing, Swelling Allergies:? Lincocin: Rash? penicillin: Rash? tetracycline: Rash? erythromycin: Rash? Keflex: Syncope? Lunesta: Unknown? penicillin G benzathine: Unknown? Biaxin: Unknown? trazodone: Unknown? Clindamycin Hydrochloride: Unknown? aspirin: GI Bleeding? Vioxx: Bleeding? NSAIDs: GI Bleeding? Mold/Fungi: Unknown? Pollen: Unknown Intolerances:? Ativan: Confusion? Restoril: Confusion Objective: Objective Information:T [id number]/959 0%Date/Time08/26 4: 4: 4: 4: 4:19Range(36.6C - 36.6C ) (84 - 84 ) (16 - 16 ) (183 - 183 )/ (95 - 95 ) (90%- 90% ) Pain at Rest reported at 08/26 7:03: 6 Physical Exam: Constitutional: Frail elderly CF, no apparent distress, alert and oriented X3,cooperativeEyes: EOMI, PERRLA, clear sclera, no conjunctival injectionENMT: NGT in place. Dry oral mucosa, no apparent injury, no lesions seenHead/Neck: Neck supple, no apparent injury, thyroid without mass or tenderness,No JVD, trachea midline, no bruitsRespiratory/Thorax: Patent airways, CTAB, normal breath sounds with good chestexpansion, no rales, rhonchi or wheezes, thorax symmetricCardiovascular: Regular rate and rhythm, no murmurs, rubs or gallops.Gastrointestinal: Nondistended, soft, non-tender, no rebound tenderness orguarding, no masses palpable, no organomegaly, +BS, no bruitsMusculoskeletal: KyphoscoliosisExtremities: No cyanosis, clubbing or edema. Distal pulses palpable 2+Neurological: Alert and oriented x3. No focal motor or sensory deficitsLymphatic: No significant lymphadenopathyPsychological : Appropriate mood and behaviorSkin: Intact warm and dry, no significant lesions or rashes present Medications: Medications: Continuous Medications ---- 1. Lactated Ringers Infusion: 1000 mL IntraVenous Scheduled Medications ----No scheduled medications are active PRN Medications ---- 1. Morphine Injectable: 1 mg IntraVenous Push Every 2 Hours2. Ondansetron Injectable: 4 mg IntraVenous Push Every 4 Hours Recent Lab Results: Results: I have reviewed these laboratory results: Urinalysis 25-Aug-2017 18:47:00 ResultValueColor, Urine YELLOW Reference Range: STRAW,YELLOWAppearance, Urine HAZYSpecific Max, Urine 1.013pH, Urine 6.0Protein, Urine NEGATIVEGlucose, Urine NEGATIVEBlood, Urine NEGATIVEKetones, Urine NEGATIVEBilirubin, Urine NEGATIVEUrobilinogen, Urine <2.0Nitrite, Urine NEGATIVELeukocyte Esterase, Urine TRACE A Urinalysis, Microscopic 25-Aug-2017 18:47:00 ResultValueWhite Cells 4 ARed Blood Cells 3 AEpithelial Cells, Squamous 1Mucous FEWHyaline Casts 1+ ACalcium Oxalate Crystals 1+ Lactate, Level 25-Aug-2017 18:46:00 ResultValueLactate, Level 0.8 Comprehensive Metabolic Panel 25-Aug-2017 18:36:00 ResultValueGlucose, Serum 125 HNA 140K 3.9CL 99Bicarbonate, Serum 28Anion Gap, Serum 17BUN 14CREAT 0.91GFR-Non 59 AGFR- 71Calcium, Serum 10.3ALB 3.7ALKP 75T Pro 8.3 HT Bili 0.6Alanine Aminotransferase, Serum 16Aspartate Transaminase, Serum 19 Lipase, Serum 25-Aug-2017 18:36:00 ResultValueLipase, Serum 51 Troponin I, Serum 25-Aug-2017 18:36:00 ResultValueTroponin I, Serum <0.02 Complete Blood Count + Differential 25-Aug-2017 18:15:00 ResultValueWhite Blood Cell Count 8.4Red Blood Cell Count 4.64HGB 15.0HCT 44.9MCV 97MCHC 33.4PLT 355RDW-CV 14.3Neutrophil % 72.1Immature Granulocytes % 0.6Lymphocyte % 22.5Monocyte % 4.2Eosinophil % 0.2Basophil % 0.4Neutrophil Count 6.07 HLymphocyte Count 1.89Monocyte Count 0.35Eosinophil Count 0.02Basophil Count 0.03 Radiology Results: Results: Impression: Evaluation of placement of nasogastric tube is limited secondary todistortion of anatomy from large hiatal hernia. The nasogastric tubeloops in the mid thorax which may possibly be near thegastroesophageal junction, however the tube does not extend withinthe gastric body. Repositioning of the nasogastric tube isrecommended. Large hiatal hernia and basilar atelectasis or airspace disease. Xray Chest 1 View [Aug 26 2017 2:44AM] Impression: Nasogastric tube is not definitely seen beyond the level of the midthoracic esophagus. Advancement of the tube is recommended asclinically able. Large hiatal hernia and basilar atelectasis orairspace disease. Xray Abdomen AP View [Aug 26 2017 2:38AM] Impression:Xray Abdomen AP View [Aug 26 2017 12:45AM] Impression: Postsurgical change of cecal resection. Dilatation of proximal smallbowel loops which measure up to 4.6 cm in diameter and nondistentionofdistal small bowel loops, findings highly concerning for bowelobstruction. Wall thickening of loop of small bowel in the inferiorpelvis posteriorly which may be infectious/inflammatory in etiology;ischemia is other differential consideration. Small bowel loops arecollapsed distal to this described segment of thickened small bowel,compatible with site of transition point. Small amount free fluid inthe pelvis. Stable large hiatal hernia. CT Abdomen and Pelvis with Contrast [Aug 25 2017 9:13PM] Problem/Assessment/Plan: Impression 1: SBOPlan for Impression 1: Management per primary serviceImpression 2: HTNPlan for Impression 2: Pt currently NPO and with NGTWill use IV meds such as hydralazine and lopressor as needed.Impression 3: CAD s/p CABGPlan for Impression 3: Clinically stableWill monitor Thank you for the consult. We will follow along with you. Electronic Signatures:Diego Obregon) (Signed 26-Aug-2017 09:58)Authored: Service, History of Present Illness, Past Medical/Surgical History,Review Family/Social History and ROS, Allergies, Objective,Assessment/Recomme ndations, Signature/Cosignature/Attest ation Last Updated: 26-Aug-2017 09:58 by Diego Obregon) [facility] Discharge Planning Noteon Discharge Planning Note Discharge Needs Assessment:? Discharge Planning Assessment [id number]? Readmission Within the Last 30 Dayscurrent reason for admission unrelated toprevious admission? Primary Care PhysicianDrLeigh CabralHugo Adult Information:? Reason for Admission as Stated by Patientsbo? Primary Support Person During HospitalizationClgeno [phone]? Lives Withspouse? Financial Concernsnone Patient Learning:? Factors that Impact Ability to Learnnone(1) Other Factors:? Functional Screen: In the recent/past 2-4 weeks, patient or family havenoticedno issues that require a rehabilitation consult at this time(2) Discharge Planning:Discharge Plannin08/26/17 A&OX3. Lives with spouse, but recovering at [facility] afterbowel surgery. Normally active in ADL, but very weak after surgery. Hxmultiple abd surgeries. N/G light green returns. NPO, has been N&V be foreadmit. Plan return to SNF when medically cleared. Discussed patient plan ofcare and discharge plans during interdisciplinary rounds. Meghan Haro RN-JANAY 08/27/17 1022 DSC: Referral sent to [facility]. SNF/Return. ADOD iswithin 2 days. Medicare ins. Awaiting facility response. Yaneth JordanDischarge Art Class Model - [phone] 08/27/17 1213 DSC: Response received from the following skilled nursingfacilities: [facility] accept [facility]. Yaneth Jordan DischargeSupport Coordinator - [phone] 08/27/17 N/G, NPO. for KUB today. Does have 55 days left of snf benefit.[facility] able to accept pt when she is medically ready. Will follow ptthrough hospital stay and adjust plan as needed. Discussed patient plan ofcare and discharge plans during interdisciplinary rounds. Meghan Haro RN-BC 08/28/17 1241 DSC: I attached updates for the facility to review. [facility] Discharge Art Class Model - [phone] 08/29/17 1011 DSC_ Updates attached to the facility for reviewEmilia Brand Discharge Art Class Model, 08/31/17 0919 DSC: Updates attached to the facility for review. Olga Dooleyge Art Class Model [phone] 08/31/17 Should be ready for d/c tomorrow. Diet full liquid and will advance.Will follow pt through hospital stay and adjust plan as needed. Discussedpatient plan of care and discharge plans during interdisciplinary rounds. Virginia MENDES-JANAY 09/01/17 1456 DSC: Final orders attached and sent to facility. No 7000 needed.Olga Lehman Discharge Art Class Model [phone] 09/01/17 1455 PCN: Director Channel/Associate Account Director notified transport set [id number] pear picker, via stretcher with [facility] providing transport.Keyana Haro, Bowl Sander, Final Disposition/Discharge:Dispos ition/Discharge Information: Discharge/Transfer Information:? Discharge/Transfer Date/[id number]-8158 15:53? Discharge Modestretcher? Transportation Methodtransportation service? Valuables/Medications/Belong ings Returnedyes? Belongings CommentDischarged to SNF. IV out, tip intact. All questionsanswered. Electronic Signatures:Olga Lehman (COOR) (Signed 01-Sep-2017 14:56)Authored: Discharge Planning Elida CoatsRN) (Signed 01-Sep-2017 15:53)Authored: Final Disposition/DischargeEmilia Brand (COOR) (Signed 29-Aug-2017 10:11)Authored: Discharge Planning CiscoEstrellita Penelope M (CLIN COOR) (Signed 31-Aug-2017 11:56)Authored: Discharge Planning TiffanyAdan cervantesia (COOR) (Signed 01-Sep-2017 15:04)Authored: Discharge Planning Yaneth Larson (COOR) (Signed 28-Aug-2017 12:41)Authored: Discharge Planning Note Last Updated: 01-Sep-2017 15:53 by Elida Calderón (RN) References:1. Data Referenced From 5. Education 08/26/2017 04:14 AM2. Data Referenced From Admission Risk Screen - Adult 08/26/2017 04:14 AM [facility] History and Physicalon 08-26 History and Physical History of Present Illness:Admission Reason: SBOHPI:82 y.o. WF who had been in her usual state of health until about , when she developed nausea, followed by vomiting, distention andabdominal pain. No reports of fever or chills. No c/o diarrhea, melena orhematochezia. She initially present to [facility]. Underwent CT of abdomen pelvis that showed findings consistent with SBO. Transferred to [facility] for further management, and admitted to our service. Previous attempts at NG placement unsuccessful. This AM she is having continued nausea, as well as recent emesis even afterbeing medicated with zofran. PmHx/sHx: HTN, hyperlipidemia, CAD- s/p CABG, GERD & gout, hysterectomy,multiple prev. bowel obstructions 2/2 adhesions requiring surgicalintervention, last in June of this year. Family Hx: non-contributory. Social Hx: non-smoker, no ETOH, no illicit drug use. Comorbidities:? Comorbid Conditionshypertension Past Medical/Surgical History: Medical History: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:Constipation:Ileus:E xploratory laparotomy:Anemia due to unknown or multiple mechanisms (disorder):Transient ischemic colitis (disorder):Protein malnutrition unspecified (disorder):Hypokalemia (disorder):Magnesium deficiency:Colitis (disorder):Small bowel obstruction (disorder):Acute bowel obstruction: Onset Date: [id number]-[id number] bowel obstruction:Acute bowel obstruction:Generalized abdominal pain (finding): Social History:Social History:Smoking Statusnever smokerAlcohol UsedeniesDrug Usedenies Allergies:? Lincocin: Rash? penicillin: Rash? tetracycline: Rash? erythromycin: Rash? Keflex: Syncope? Lunesta: Unknown? penicillin G benzathine: Unknown? Biaxin: Unknown? trazodone: Unknown? Clindamycin Hydrochloride: Unknown? aspirin: GI Bleeding? Vioxx: Bleeding? NSAIDs: GI Bleeding? Mold/Fungi: Unknown? Pollen: Unknown Intolerances:? Ativan: Confusion? Restoril: Confusion Review of Systems:Constitutional: POSITIVE: Anorexia, Malaise; NEGATIVE: Fever, Chills, WeightLoss Eyes: NEGATIVE: Blurry Vision, Drainage, Diploplia, Redness, Vision Loss/Change ENMT: NEGATIVE: Nasal Discharge, Nasal Congestion, Ear Pain, Mouth Pain, ThroatPain Respiratory: NEGATIVE: Dry Cough, Productive Cough, Hemoptysis, Wheezing,Shortness of Breath Cardiac: NEGATIVE: Chest Pain, Dyspnea on Exertion, Orthopnea, Palpitations,Syncope Gastrointestinal: POSITIVE: Nausea, Vomiting, Abdominal Pain; NEGATIVE:Diarrhea, Constipation Genitourinary: NEGATIVE: Discharge, Dysuria, Flank Pain, Frequency, Hematuria Musculoskeletal: POSITIVE: Weakness; NEGATIVE: Decreased ROM, Pain, Swelling,Stiffness Neurological: NEGATIVE: Dizziness, Confusion, Headache, Seizures, Syncope Psychiatric: NEGATIVE: Mood Changes, Anxiety, Hallucinations, Sleep Changes,Suicidal Ideas Skin: NEGATIVE: Mass, Pain, Pruritus, Rash, Ulcer Objective: Objective Information: T [id number]/9390% Date/Time08/26 5: 5: 5:0808/26 5:0818 5:08Range(36C - 36.6C ) (84 - 88 ) (16 - 16 ) (183 - 185 )/ (93 - 95 ) (90% -90% ) Physical Exam: Constitutional: frail, elderly female. NAD. Alert and oriented.Eyes: PERRL, EOMI, clear scleraENMT: mucous membranes moist, no apparent injury, no lesions seen NG tube placed without difficulty via left nare. Immediately returned approx.200ml green bile drainage. To LIWS.Respiratory/Thorax: LCTA. non-labored.Cardiovascular: Heart RRRGastrointestinal: softly distended. Tender. Hypoactive bowel sounds.Genitourinary: deferred.Musculoskeletal: ROM intact, no joint swelling, normal strengthExtremities: normal extremities, no cyanosis edema, contusions or wounds, noclubbingNeurological: alert and oriented x3, intact senses, motor, response andreflexes, normal strengthPsychological: Appropriate mood and behaviorSkin: Warm and dry, no lesions, no rashes Medications: Medications: Continuous Medications ---- 1. Dextrose 5% - NaCL 0.45% with Potassium CL 20 mEq Premix Fluid: 1000 mLIntraVenous Scheduled Medications ---- 1. Metoprolol Injectable: 5 mg IntraVenous Push Every 4 Hours PRN Medications ---- 1. Morphine Injectable: 1 mg IntraVenous Push Every 2 Hours2. Ondansetron Injectable: 4 mg IntraVenous Push Every 4 Hours Recent Lab Results: Results: I have reviewed these laboratory results: Urinalysis 25-Aug-2017 18:47:00 ResultValueColor, Urine YELLOW Reference Range: STRAW,YELLOWAppearance, Urine HAZYSpecific Max, Urine 1.013pH, Urine 6.0Protein, Urine NEGATIVEGlucose, Urine NEGATIVEBlood, Urine NEGATIVEKetones, Urine NEGATIVEBilirubin, Urine NEGATIVEUrobilinogen, Urine <2.0Nitrite, Urine NEGATIVELeukocyte Esterase, Urine TRACE A Urinalysis, Microscopic 25-Aug-2017 18:47:00 ResultValueWhite Cells 4 ARed Blood Cells 3 AEpithelial Cells, Squamous 1Mucous FEWHyaline Casts 1+ ACalcium Oxalate Crystals 1+ Lactate, Level 25-Aug-2017 18:46:00 ResultValueLactate, Level 0.8 Comprehensive Metabolic Panel 25-Aug-2017 18:36:00 ResultValueGlucose, Serum 125 HNA 140K 3.9CL 99Bicarbonate, Serum 28Anion Gap, Serum 17BUN 14CREAT 0.91GFR-Non 59 AGFR- 71Calcium, Serum 10.3ALB 3.7ALKP 75T Pro 8.3 HT Bili 0.6Alanine Aminotransferase, Serum 16Aspartate Transaminase, Serum 19 Lipase, Serum 25-Aug-2017 18:36:00 ResultValueLipase, Serum 51 Troponin I, Serum 25-Aug-2017 18:36:00 ResultValueTroponin I, Serum <0.02 Complete Blood Count + Differential 25-Aug-2017 18:15:00 ResultValueWhite Blood Cell Count 8.4Red Blood Cell Count 4.64HGB 15.0HCT 44.9MCV 97MCHC 33.4PLT 355RDW-CV 14.3Neutrophil % 72.1Immature Granulocytes % 0.6Lymphocyte % 22.5Monocyte % 4.2Eosinophil % 0.2Basophil % 0.4Neutrophil Count 6.07 HLymphocyte Count 1.89Monocyte Count 0.35Eosinophil Count 0.02Basophil Count 0.03 Basic Metabolic Panel 21-Aug-2017 16:22:00 ResultValueLab Comment: Drop off Donald ZAIDI Anngee #[id number] 08/21/2017 psteiGlucose, Serum 108 HNA 139K 4.2CL 101Bicarbonate, Serum 29Anion Gap, Serum 13BUN 17CREAT 0.90GFR-Non 60 AGFR- 73Calcium, Serum 9.3 Complete Blood Count 21-Aug-2017 16:22:00 ResultValueLab Comment: Drop off Donald ZAIDI Anngee #[id number] 08/21/2017 psteiWhite Blood Cell Count 8.2Red Blood Cell Count 3.71 LHGB 12.0HCT 37.2MCV 100MCHC 32.3PLT 322RDW-CV 14.4 Radiology Results: Results: Impression: Distal enteric tube is likely coiled within a large hiatal hernia. Xray Chest 1 View [Aug 26 2017 5:18AM] Impression: Evaluation of placement of nasogastric tube is limited secondary todistortion of anatomy from large hiatal hernia. The nasogastric tubeloops in the mid thorax which may possibly be near thegastroesophageal junction, however the tube does not extend withinthe gastric body. Repositioning of the nasogastric tube isrecommended. Large hiatal hernia and basilar atelectasis or airspace disease. Xray Chest 1 View [Aug 26 2017 2:44AM] Impression: Nasogastric tube is not definitely seen beyond the level of the midthoracic esophagus. Advancement of the tube is recommended asclinically able. Large hiatal hernia and basilar atelectasis orairspace disease. Xray Abdomen AP View [Aug 26 2017 2:38AM] Impression:Xray Abdomen AP View [Aug 26 2017 12:45AM] Impression: Postsurgical change of cecal resection. Dilatation of proximal smallbowel loops which measure up to 4.6 cm in diameter and nondistentionofdistal small bowel loops, findings highly concerning for bowelobstruction. Wall thickening of loop of small bowel in the inferiorpelvis posteriorly which may be infectious/inflammatory in etiology;ischemia is other differential consideration. Small bowel loops arecollapsed distal to this described segment of thickened small bowel,compatible with site of transition point. Small amount free fluid inthe pelvis. Stable large hiatal hernia. 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:Acute on chronic diastolic (congestive) heart failure:Hypokalemia:Pulmonar y edema:Tachypnea:S/P right hemicolectomy:Small bowel obstruction:NSTEMI (non-ST elevated myocardial infarction):UTI (urinary tract infection), bacterial:Anemia:Lactic acidosis:Leukocytosis, unspecified type:Hypotension (arterial):Pneumonia of right lower lobe due to infectious organism:Acute encephalopathy: Medical History: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:Constipation:Ileus:E xploratory laparotomy:Anemia due to unknown or multiple mechanisms (disorder):Transient ischemic colitis (disorder):Protein malnutrition unspecified (disorder):Hypokalemia (disorder):Magnesium deficiency:Colitis (disorder):Small bowel obstruction (disorder):Acute bowel obstruction: Onset Date: [id number] abdominal pain (finding): Chronic:Fluid overload pulmonary edema:Clostridium difficile infection:Chest pain:Diarrhea: Other Dx/Proc:CHEST PAIN: Description: CHEST PAINUnstable angina/chest pain: Description: Unstable angina/chest painGastrointestinal bleeding: Description: Gastrointestinal bleeding1 Colitis, 2 Abdomen Pain 3 Cholelithiasis: Onset Date: [id number] failure: Description: Heart failurePNEUMONIA:Diabetes mellitus: Description: Diabetes mellitusAbdominal pain: Description: Abdominal painElectrolyte imbalance: Description: Electrolyte imbalancePost CABG: Description: Post CABGCoronary artery disease: Description: Coronary artery diseaseNon ST Elevation Myocardial Infarction (NSTEMI): Description: Non ST ElevationMyocardial Infarction (NSTEMI)Coronary angioplasty/stent (PCI): Description: Coronary angioplasty/stent(PCI)Dyspne a: Description: DyspneaCoronary atherosclerosis: Description: Coronary atherosclerosisLeft heart catheterization: Description: Left heart catheterizationHypotension:S epsis: Description: SepsisVenous thromboembolism: Description: Venous thromboembolism Assessment:82 y.o. WF admitted with nausea, vomiting and abdominal pain. Hx of manyprevious abdominal surgeries to address adhesions causing obstruction.Recent CT abd/pelvis show findings consistent with SBO. Transferred here forfurther management. NG now in place to address nausea, and maintained to LIWS.NPOIV fluids/antiemetics/pain meds.Labs in AM.KUB tomorrow.PT eval/treat Signatures/Attestation/Certi fication:Comments/ Additional Findingshypoactive bowel sounds hopefully will respond to medical mgmtAttending Provider ? Inpatient Certification StatementI certify this patient?chang for inpatient care based on the above documentation including; the orderto admit as inpatient, the anticipated length of stay, diagnosis, problem listand plan of care, and discharge plan. Electronic Signatures:Vanessa Rodarte (DANCE ARTIST-COMMUNITY LIVING SPECIALIST) (Signed 26-Aug-2017 12:20)Authored: History of Present Illness, Comorbidities, Past Medical/SurgicalHistory, Social History, Allergies, Review of Systems, Objective, Assessmentand Plan, Signatures/Attestation/Certi Jessenia Wilson) (Signed 26-Aug-2017 14:08)Authored: Signatures/Attestation/Certi fication Last Updated: 26-Aug-2017 14:08 by Jessenia Tapia) Normal [facility] Patient Profile - Adult v2on 08-26-2017 Protein mass conc Profile:Initial Info :How to be AddressedAliceSpoken Language PreferredEnglish (1)Are you currently using the Personal Electronic Health Record or MYCAREnoAre you interested in learning more about [facility] for the management of yourhealthyes, information providedStated Reason for AdmissionAbdominal pain and nausea, got worseArrived Fromemergency departmentPatient BelongingsnoneMedications Brought to [facility] General Health:Weight in kg40.6 kilogram(s)Weight in lbs89.6 pound(s)Height in feet5 feetHeight in inches0 inch(es)Height in cm152.4 centimeter(s)BMI (kg/m2)17.48 square meterWeight Methodactual (measured)Scale TypebedHeight Methodstated [facility] Based Care:How would you like to participate in your care?Keep me updatedWhat is the number one concern for you during this hospitalization?gettingbette rWhat is the most important thing we can do to support you during thishospitalization?Best care possibleIs there anything we need to know to best care for you?No Substance:Current or Former Substance Use never: Cigarette/Tobacco(1), Alcohol(1),Street Drugs(1) Health Mgmt:Symptoms/Conditions Managed at HomegastrointestinalGastroin testinal Symptoms/Conditionsabdominal painGastrointestinal Managementmanaged Relationship/Environ:Primary Source of Support/Comfortspouse; sibling(s)Lives WithspouseLiving ArrangementshouseResource/En vironmental ConcernsnoneAnticipated Transition Toinpatient rehabilitation facilityServices Anticipated at TransitionnoneSignificant IndicatorsComplete Information Review:? Allergies, Home Meds and Significant Events have been Reviewed and Verifiedwith Patient/Familyyes ALLERGY, INTOLERANCE, ADVERSE EVENT: Allergies:? Lincocin: Drug, Rash, Active? penicillin: Drug, Rash, Active? tetracycline: Drug, Rash, Active? erythromycin: Drug, Rash, Active? Keflex: Drug, Syncope, Active? Lunesta: Drug, Unknown, Active? penicillin G benzathine: Drug, Unknown, Active? Biaxin: Drug, Unknown, Active? trazodone: Drug, Unknown, Active? Clindamycin Hydrochloride: Drug, Unknown, Active? aspirin: Drug, GI Bleeding, Active? Vioxx: Drug, Bleeding, Active? NSAIDs: Drug Category, GI Bleeding, Active? Mold/Fungi: Environment, Unknown, Active? Pollen: Environment, Unknown, Active Intolerances:? Ativan: Drug, Confusion, Active? Restoril: Drug, Confusion, Active Electronic Signatures:Sylvain Gilbert (RN) (Signed 26-Aug-2017 04:24)Authored: Profile, Additional Information Last Updated: 26-Aug-2017 04:24 by Sylvain Gilbert (CINTHYA) References:1. Data Referenced From Patient Profile - Adult v2 07/26/2017 5:00 PM Normal [facility] CBC AND DIFFERENTIALon 08-25 % AUTOMATED IMMATURE GRAN 0.6 % Normal 0.0 - 0.9 [facility] Comment on above: Result Comment: Perc ent differential counts (%) should be interpreted in the context of the absolute cell counts (cells/L). Performed By: #### L IPID ####[address] [address] % NEUTROPHIL 72.1 % Normal 40.0 - 80.0 [facility] Comment on above: Performed By: #### L IPID ####[address] [address] Basophils/100 WBC Auto (Bld) 0.4 % Normal 0.0 - 2.0 [facility] Comment on above: Performed By: #### L IPID ####[address] [address] Basophils/100 WBC Auto (Bld) 0.03 x10E9/L Normal 0.00 - 0.10 [facility] Comment on above: Performed By: #### L IPID ####[address] [address] Eosinophils Auto #/vol (Bld) 0.02 10*3/uL Normal 0.00 - 0.40 [facility] Comment on above: Performed By: #### L IPID ####[address] [place] [address] Eosinophils/100 WBC Auto (Bld) 0.2 % Normal 0.0 - 6.0 [facility] Comment on above: Performed By: #### L IPID ####[address] [address] Erythrocyte distribution width Auto Ratio (RBC) 14.3 % Normal 11.5 - 14.5 [facility] Comment on above: Performed By: #### L IPID ####[address] [address] Hematocrit Auto Volume Fraction (Bld) 44.9 % Normal 36.0 - 46.0 [facility] Comment on above: Performed By: #### L IPID ####[address] [address] Hemoglobin mass conc (Bld) 15.0 g/dL Normal 12.0 - 16.0 [facility] Comment on above: Performed By: #### L IPID ####[address] [address] Lymphocytes Auto #/vol (Bld) 1.89 10*3/uL Normal 0.80 - 3.00 [facility] Comment on above: Performed By: #### L IPID ####[address] [address] Lymphocytes/100 WBC Auto (Bld) 22.5 % Normal 13.0 - 44.0 [facility] Comment on above: Performed By: #### L IPID ####[address] [address] MCHC Auto mass conc (RBC) 33.4 g/dL Normal 32.0 - 36.0 [facility] Comment on above: Performed By: #### L IPID ####[address] [address] MCV Auto Entitic volume (RBC) 97 fL Normal 80 - 100 [facility] Comment on above: Performed By: #### L IPID ####[address] [address] Monocytes Auto #/vol (Bld) 0.35 10*3/uL Normal 0.05 - 0.80 [facility] Comment on above: Performed By: #### L IPID ####[address] [place] [address] Monocytes/100 WBC Auto (Bld) 4.2 % Normal 2.0 - 10.0 [facility] Comment on above: Performed By: #### L IPID ####[address] [place] [address] Neutrophils Auto #/vol (Bld) 6.07 10*3/uL High 1.60 - 5.50 [facility] Comment on above: Performed By: #### L IPID ####[address] [address] Platelets Auto #/vol (Bld) 355 10*3/uL Normal 150 - 450 [facility] Comment on above: Performed By: #### L IPID ####[address] [place] [address] RBC Auto #/vol (Bld) 4.64 x10E12/L Normal 4.00 - 5.20 [facility] Comment on above: Performed By: #### L IPID ####[address] [address] WBC Auto #/vol (Bld) 8.4 10*3/uL Normal 4.4 - 11.3 [facility] Comment on above: Performed By: #### L IPID ####[address] [place] [address] COMPREHENSIVE PANELon 2017 Albumin mass conc 3.7 g/dL Normal 3.4 - 5.0 [facility] Comment on above: Performed By: #### L IPID ####[address] [place] [address] ALP enzyme act/vol 75 U/L Normal 33 - 136 [facility] Comment on above: Performed By: #### L IPID ####[address] [place] [address] ALT enzyme act/vol 16 U/L Normal 7 - 45 [facility] Comment on above: Result Comment: Viv ents treated with Sulfasalazine may generate falsely decreased results for ALT. Performed By: #### L IPID ####[address] [place] [address] Anion gap 3 molar conc 17 mmol/L Normal 10 - 20 [facility] Comment on above: Performed By: #### L IPID ####[address] [address] AST enzyme act/vol 19 U/L Normal 9 - 39 [facility] Comment on above: Performed By: #### L IPID ####[address] [address] Bilirubin mass conc 0.6 mg/dL Normal 0.0 - 1.2 [facility] Comment on above: Performed By: #### L IPID ####[address] [address] Calcium mass conc 10.3 mg/dL Normal 8.6 - 10.3 [facility] Comment on above: Performed By: #### L IPID ####[address] [address] Chloride molar conc 99 mmol/L Normal 98 - 107 [facility] Comment on above: Performed By: #### L IPID ####[address] [address] Creatinine mass conc 0.91 mg/dL Normal 0.50 - 1.05 [facility] Comment on above: Performed By: #### L IPID ####[address] [address] GFR- AM. 71 mL/min/1.73m2 Normal >60 [facility] Comment on above: Result Comment: CALC ULATIONS OF ESTIMATED GFR ARE PERFORMED USING THE MDRD STUDY EQUATION FOR THE IDMS-TRACEABLE CREATININE METHODS. CLIN CHEM 2007;53:766-72 Performed By: #### L IPID ####[address] [address] GFR-NON AM. 59 mL/min/1.73m2 Abnormal >60 [facility] Comment on above: Performed By: #### L IPID ####[address] [address] Glucose mass conc 125 mg/dL High 74 - 99 [facility] Comment on above: Performed By: #### L IPID ####[facility] [place] [address] HCO3 molar conc (Bld) 28 mmol/L Normal 21 - 32 [facility] Comment on above: Performed By: #### L IPID ####[facility] [place] [address] Potassium molar conc 3.9 mmol/L Normal 3.5 - 5.3 [facility] Comment on above: Performed By: #### L IPID ####[facility] [place] [address] Protein mass conc 8.3 g/dL High 6.4 - 8.2 [facility] Comment on above: Performed By: #### L IPID ####[address] [place] [address] Sodium molar conc 140 mmol/L Normal 136 - 145 [facility] Comment on above: Performed By: #### L IPID ####[address] [place] [address] Urea nitrogen mass conc 14 mg/dL Normal 6 - 23 [facility] Comment on above: Performed By: #### L IPID ####[address] [place] [address] CT ABDOMEN AND PELVIS WITH C ONTRASTon 08-25-2017 CT ABDOMEN AND PELVIS WITH CONTRAST Name: KATHERINE JUDGE STUDY:CT ABDOMEN AND PELVIS WITH CONTRAST; 08/25/2017 8:29 pm INDICATION:Dizziness, history of cecal volvulus COMPARISON:07/02/2017 ORDERING CLINICIAN:FINESSE PINEDA TECHNIQUE:Contiguous axial images of the abdomen and pelvis were obtained afterthe intravenous administration of 67 mL of Optiray 350. Coronal andsagittal reformatted images were obtained from the axial images. FINDINGS:Limited evaluation of the lung bases. There is a stable large hiatalhernia and bibasilar subsegmental atelectasis. There is hepatic steatosis. The gallbladder is present. No evidenceof calcified gallstones. No dilatation of the common bile duct. The pancreas, spleen, and adrenal glands appear unremarkable. Symmetric enhancement of the kidneys. 1.4 cm right renal cyst. Nohydronephrosis. Atherosclerotic calcification of aorta, abdominal vasculature commonbilateral iliac arteries. There is postsurgical change of cecal resection. There is dilatationof proximal small bowel loops which measure up to 4.6 cm in diameter,and nondistention of distal small bowel loops, findings highlyconcerning for bowel obstruction. There is wall thickening of segmentof small bowel in the pelvis which may be infectious or inflammatoryin etiology. Small amount of free fluid in the pelvis.Underdistention versus wall thickening of the stomach distally may beinfectious/inflammatory etiology. Urinary bladder is underdistended and not well evaluated. Multilevel degenerative change of the lumbar and imaged lowerthoracic spine.Stable multilevel compression deformities of the thoracic and lumbarspine. IMPRESSION:Postsurgical change of cecal resection. Dilatation of proximal smallbowel loops which measure up to 4.6 cm in diameter and nondistentionof distal small bowel loops, findings highly concerning for bowelobstruction. Wall thickening of loop of small bowel in the inferiorpelvis posteriorly which may be infectious/inflammatory in etiology;ischemia is other differential consideration. Small bowel loops arecollapsed distal to this described segment of thickened small bowel,compatible with site of transition point. Small amount free fluid inthe pelvis. Stable large hiatal hernia. Electronically signed by: LEANN PATEL MD Normal [facility] LACTATEon 08-25-2017 Lactate molar conc 0.8 mmol/L Normal 0.4 - 2.0 [facility] Comment on above: Result Comment: Hali puncture immediately after or during the administration of Metamizole may lead to falsely low results. Testing should be performed immediately prior to Metamizole dosing. Performed By: #### L IPID ####[facility] [place] [address] LIPASEon 08-25-2017 Lipase enzyme act/vol 51 U/L Normal 9 - 82 [facility] Comment on above: Result Comment: Hali puncture immediately after or during the administration of Metamizole may lead to falsely low results. Testing should be performed immediately prior to Metamizole dosing. Performed By: #### L IPID ####[address] [place] [address] Provider Note - EDon 018 Protein mass conc Time Seen:? Time [id number] 17:58 Triage Vital Signs:? Triage Information Most recent Vital Sign Value Date Temp (F): 98.6 08-25-2017 18:06 Temp (C): 37 08-25-2017 18:06 Heart Rate (beats/min): 95 08-25-2017 18:06 Respirations (breaths/min): 16 08-25-2017 18:06 SpO2 (%): 95 08-25-2017 18:06 BP Systolic (mm Hg): 151 08-25-2017 18:06 BP Diastolic (mm Hg): 81 08-25-2017 18:06 History of Present Illness:This 82 year old Female presents with complaint(s) of abdominal pain(1) ? Additional DetailsComplaint: This patient who has abdominal pain. She has a recent history ofsurgery some ischemic colitis history and she states that she had a surgerybecause her bile was twisted. She is here complaining of pain in her lowerabdomen. She states this started around noontime and is worse after she ate shebecame nauseated and threw up before coming with EMS. She describes the painis deep pain moderate to severe. Past Medical History: Medical History:? Failure to thrive:? Gastrocutaneous fistula:? Constipation:? Ileus:? Exploratory laparotomy:? Anemia due to unknown or multiple mechanisms (disorder):? Transient ischemic colitis (disorder):? Protein malnutrition unspecified (disorder):? Hypokalemia (disorder):? Magnesium deficiency:? Colitis (disorder):? Small bowel obstruction (disorder):? Acute bowel obstruction: Onset Date: 11-Feb-2012? Generalized abdominal pain (finding): Allergy, Intolerance, Adverse Event: Allergies:? Lincocin: Drug, Rash, Active? penicillin: Drug, Rash, Active? tetracycline: Drug, Rash, Active? erythromycin: Drug, Rash, Active? Keflex: Drug, Syncope, Active? Lunesta: Drug, Unknown, Active? penicillin G benzathine: Drug, Unknown, Active? Biaxin: Drug, Unknown, Active? trazodone: Drug, Unknown, Active? Clindamycin Hydrochloride: Drug, Unknown, Active? aspirin: Drug, GI Bleeding, Active? Vioxx: Drug, Bleeding, Active? NSAIDs: Drug Category, GI Bleeding, Active? Mold/Fungi: Environment, Unknown, Active? Pollen: Environment, Unknown, Active Intolerances:? Ativan: Drug, Confusion, Active? Restoril: Drug, Confusion, Active Outpatient Medication, Review/Add Medications:* Patient Currently Takes Medications as of 29-Jul-2017 13:50 documented inStructured Notes Social History: denies smoking, alcohol and drug use HISTORY ATTESTATION:? AttestationI have reviewed and confirmed nurse's/medic's notes for patient'smedications, allergies, medical history, and surgical history Vital Signs:? Objective Information T PRBP SpO2O2(LPM) %FiO2 [id number] 18:06:[id number]/81 95 room air, no respiratorysupport Review of systems: Gen.: No weight loss, fatigue, anorexia, insomnia, fever. Eyes: No vision loss, double vision, drainage, eye pain. ENT: No pharyngitis, dry mouth. Cardiac: No chest pain, palpitations, syncope, near syncope. Pulmonary: No shortness of breath, cough, hemoptysis. Heme/lymph: No swollen glands, fever, bleeding. GI: Abdominal pain without change in bowel habits, melena, hematemesis,hematochezia, nausea, vomiting, diarrhea. : No discharge, dysuria, frequency, urgency, hematuria. Musculoskeletal: No limb pain, joint pain, joint swelling. Skin: No rashes. Review of systems is otherwise negative unless stated above or in history ofpresent illness. Physical Exam: General: Vitals noted, no distress. Afebrile. Alert and oriented x 3. EENT: Posterior oropharynx unremarkable. No meningismus. No LAD. Cardiac: Regular, rate, rhythm, no murmurs rubs or gallops. Pulmonary: Lungs clear bilaterally with good aeration. No adventitious breathsounds. No wheezes rales or rhonchi. Abdomen: Abdominal pain between the suprapubic area and the umbilicus.. Noperitoneal signs. Hyperactive bowel sounds. No pulsatile masses. Extremities: No peripheral edema. Skin: No rash. Intact. Neuro: No focal neurologic deficits, grossly Shift Change/Handoff:Handoff:Hando ff 1 ED Attending to ED Attending. Pending items to be checked and documented: labs CT/MRI results. Handoff Date/Time: 25-Aug-2017 19:00. DrLeigh/Provider Estelita is/are the receiving Physician/LIP/Resident. Diagnoses/Visit Problems:? Small bowel obstruction: DISCHARGE DISPOSITION:? Disposition: transferred? Facility Name (1): [place]? Name of 1st Consulting Physician: Willie? Was Patient Accepted in Transfer?: yes CONDITION ON DISPO:? Condition on Dispositionstable MEDICATION RECONCILIATION/DISCHARGE MEDS:* Outpatient Medication Status not yet specified Attestation:CRITICAL CARE:? Is This a Critically Ill Patientno Electronic Signatures:Finesse Pineda (DO) (Signed 25-Aug-2017 18:53)Authored: Time Seen / ED Notes, Triage Vital Signs, History of PresentIllness, Patient History, History Attestation, ROS, Vital Signs, Physical Exam,Medical Decision Making, Shift Change/Handoff, ED Disposition (REQUIRED)Spencer Hardy) (Signed 25-Aug-2017 23:27)Authored: ED Disposition (REQUIRED), AttestationCo-Signer: Time Seen / ED Notes, Triage Vital Signs, History of PresentIllness, Patient History, History Attestation, ROS, Vital Signs, Physical Exam,Medical Decision Making, Shift Change/Handoff, ED Disposition (REQUIRED) Last Updated: 25-Aug-2017 23:27 by Spencer Hardy) References:1. Data Referenced From Triage - ED 08/25/2017 6:06 PM Normal [facility] Risk Screen - Adult Emergenc yon 08-25-2017 Risk Screen - Adult Emergency Preferred Language:Preferred Language:? Preferred Language for Discussing Health Care (patient/designee)Sudanese Advanced Directives:? Advance Directive Medicalno Family Violence Adult:Abuse Screen:? Are you or have you been threatened or abused physically, emotionally, orsexually by anyone?no Suicide / Depression:Suicide/Depressio n Screen:? During the past month, have you often been bothered by feeling down,depressed or hopeless?no? During the past month, have you often had little interest or pleasure indoing things?no? Have you had any thoughts of harming yourself?no? Have you had any thoughts of harming anyone else?no Learning Assessment (Patient):Learning Assessment (Patient):? Patient is Able to be Assessed for Learningyes? Factors Influencing Readiness to Learnacuteness of illness? Factors that Impact Ability to Learnnone? Devices/Methods Used to Communicatenone? Learning Preferencesindividual instruction? Cultural Considerationsnone? Developmental Considerationsnone? Restoration Considerationsnone Learning Assessment (Other Learner):Learning Assessment (Other Learner):? Other learner availableno Fall Risk Adult:Falls Risk:? Altered Mobilitynone? Change in Mental Statusno? Relevant Medical History / Diagnosisnone? Fall Historynone? Altered Eliminationno? Medications that Might Alter: equilibrium, cognitive judgement or severity ofinjurynone? Sensory Deficitno? UNABLE or UNWILLING to Follow Directionsno? Patient Identified as a Falls Riskyes Pressure Injury:Pressure Injury Present on Admissionno Respiratory / Cough /TB:ED / TB / Cough / Respiratory Screen:? Do you have a cough?no Smoking/Social History (Required age 13 or older): Smoking Status: unknown if ever smoked Admission Risk Screen:? Significant IndicatorsComplete CAGE:CAGE:Is this an injured patient at a Trauma Center ([facility] / [place]): no Electronic Signatures:Mora Owens (CINTHYA) (Signed 25-Aug-2017 19:06)Authored: Preferred Language, Advanced Directives, Family Violence Adult,Suicide / Depression, Learning Assessment (Patient), Learning Assessment (OtherLearner), Fall Risk Adult, Pressure Injury, Respiratory / Cough /TB,Smoking/Social History (Required age 13 or older), CAGE Last Updated: 25-Aug-2017 19:06 by Mora Owens (CINTHYA) Normal [facility] TROPONIN Ion 08-25-2017 Troponin I.cardiac mass conc ng/mL Normal 0.00 - 0.03 [facility] Comment on above: Result Comment: LESS THAN 0.04 NG/ML: NEGATIVEREPEAT TESTING IN FOUR TO SIX HOURSIF CLINICALLY INDICATED.0.04 - 0.5 NG/ML: CONSISTENT WITH POSSIBLECARDIAC DAMAGE AND POSSIBLE INCREASEDCLINICAL RISK.SERIAL MEASUREMENTS MAY HELP ASSESS EXTENT OFMYOCARDIAL DAMAGE.>0.5 NG/ML: CONSISTENT WITH CARDIAC DAMAGE,INCREASED CLINICAL RISK AND MYOCARDIALINFARCTION. SERIAL MEASUREMENTS MAY HELPASSESS EXTENT OF MYOCARDIAL DAMAGE..Note: Troponin I testing is performed using differenttesting methodology [facility]. Direct result comparisons should onlybe made within the same method. Performed By: #### L IPID ####[id number] [place] [address] Triage - EDon 08-25-2017 INR Coag RelTime (Bld) Pain:Pain Rating (0-10): Rest4 Chart Review:CHIEF COMPLAINT KATHERINE JUDGE is a Female patient with a chief complaint of abdominal pain.Onset of the Complaint: [id number] Date/Time: 25-Aug-2017 17:59Pain Rating (0-10): Rest: 4Vital Signs:Temperature: 98.6F ( 37.0C) taken temporalBlood Pressure: 151/81 Mean:Heart Rate: 95Respiratory Rate: 16Pulse Oximetry: 95% on room air, no respiratory support. Height: 5 feet 0.00inches. 152.4 CMWeight: 99.0 pounds. Calculated 44.9 kg. (stated)Calculated BMI (kg/m2): 19.331 Calculated BSA (m2) 1.38 Allergies: yesESI: 3 PAIN Pain Scale Used: SANDOVAL Past Medical History:? Past Medical History Reviewedyes Electronic Signatures:Obdulia Perea (RN PRN) (Signed 25-Aug-2017 18:08)Authored: Triage, Past Medical History Last Updated: 25-Aug-2017 18:08 by Obdulia Perea (RN PRN) Normal [facility] UA MICROSCOPICon 08-25-2017 CA OXALATE CRYSTAL 1+ /HPF Normal [facility] Comment on above: Performed By: #### L IPID ####[facility] [place] [address] HYALINE CAST 1+ /LPF Abnormal [facility] Comment on above: Performed By: #### L IPID ####[facility] [place] [address] MUCUS FEW Normal [facility] Comment on above: Performed By: #### L IPID ####[id number] [place] [address] RBC 3 /HPF Abnormal 0-5 [facility] Comment on above: Performed By: #### L IPID ####[address] [place] [address] SQUAMOUS EPITH. CELLS 1 /HPF Normal [facility] Comment on above: Performed By: #### L IPID ####[address] [place] [address] WBC 4 /HPF Abnormal 0-5 [facility] Comment on above: Performed By: #### L IPID ####[address] [place] [address] URINALYSISon 08-25-2017 APPEARANCE HAZY Normal CLEAR [facility] Comment on above: Performed By: #### L IPID ####[address] [place] [address] BILIRUBIN Negative Normal NEGATIVE [facility] Comment on above: Performed By: #### L IPID ####[address] [address] BLOOD Negative Normal NEGATIVE [facility] Comment on above: Performed By: #### L IPID ####[address] [address] COLOR YELLOW Normal STRAW,YELL OW [facility] Comment on above: Performed By: #### L IPID ####[address] [place] [address] GLUCOSE Negative Normal NEGATIVE [facility] Comment on above: Performed By: #### L IPID ####[address] [place] [address] KETONES Negative Normal NEGATIVE [facility] Comment on above: Performed By: #### L IPID ####[address] [address] LEUKOCYTE ESTERASE TRACE Abnormal NEGATIVE [facility] Comment on above: Performed By: #### L IPID ####[address] [place] [address] NITRITE Negative Normal NEGATIVE [facility] Comment on above: Performed By: #### L IPID ####[address] [place] [address] pH 6.0 Normal 5.0 - 8.0 [facility] Comment on above: Performed By: #### L IPID ####[address] [address] Protein mass conc Negative Normal NEGATIVE [facility] Comment on above: Performed By: #### L IPID ####[address] [place] [address] SPECIFIC GRAVITY 1.013 Normal 1.005 - 1.035 [facility] Comment on above: Performed By: #### L IPID ####[address] [address] UROBILINOGEN <2.0 Normal 0.0 - 1.9 [facility] Comment on above: Performed By: #### L IPID ####[address] [address] BASIC METABOLIC PANELon 08-09 Anion gap 3 molar conc 13 mmol/L Normal 10 - 20 [facility] Comment on above: Order Comment: Drop off AHA, Phleb, Anngee #2566 08/21/2017 pstei Performed By: #### L IPID ####[address] [address] Calcium mass conc 9.3 mg/dL Normal 8.6 - 10.3 [facility] Comment on above: Order Comment: Drop off AHA, Phleb, Anngee #8614 08/21/2017 pstei Performed By: #### L IPID ####[address] [place] [address] Chloride molar conc 101 mmol/L Normal 98 - 107 [facility] Comment on above: Order Comment: Drop off AHA, Phleb, Anngee #6477 08/21/2017 pstei Performed By: #### L IPID ####[address] [place] [address] Creatinine mass conc 0.90 mg/dL Normal 0.50 - 1.05 [facility] Comment on above: Order Comment: Drop off AHA, Phleb, Anngee #6714 08/21/2017 pstei Performed By: #### L IPID ####[address] [place] [address] GFR- AM. 73 mL/min/1.73m2 Normal >60 [facility] Comment on above: Order Comment: Drop off AHA, Phleb, Anngee #6615 08/21/2017 pstei Result Comment: CALC ULATIONS OF ESTIMATED GFR ARE PERFORMED USING THE MDRD STUDY EQUATION FOR THE IDMS-TRACEABLE CREATININE METHODS. CLIN CHEM 2007;53:766-72 Performed By: #### L IPID ####[address] [address] GFR-NON AM. 60 mL/min/1.73m2 Abnormal >60 [facility] Comment on above: Order Comment: Drop off AHA, Phleb, Anngee #9119 08/21/2017 pstei Performed By: #### L IPID ####[address] [address] Glucose mass conc 108 mg/dL High 74 - 99 [facility] Comment on above: Order Comment: Drop off AHA, Phleb, Anngee #5460 08/21/2017 pstei Performed By: #### L IPID ####[address] [address] HCO3 molar conc (Bld) 29 mmol/L Normal 21 - 32 [facility] Comment on above: Order Comment: Drop off AHA, Phleb, Anngee #7223 08/21/2017 pstei Performed By: #### L IPID ####[address] [address] Potassium molar conc 4.2 mmol/L Normal 3.5 - 5.3 [facility] Comment on above: Order Comment: Drop off AHA, Phleb, Anngee #4036 08/21/2017 pstei Performed By: #### L IPID ####[address] [address] Sodium molar conc 139 mmol/L Normal 136 - 145 [facility] Comment on above: Order Comment: Drop off AHA, Phleb, Anngee #2297 08/21/2017 pstei Performed By: #### L IPID ####[address] [address] Urea nitrogen mass conc 17 mg/dL Normal 6 - 23 [facility] Comment on above: Order Comment: Drop off AHA, Phleb, Anngee #4897 08/21/2017 pstei Performed By: #### L IPID ####[address] [place] [address] CBCon 08-21-2017 Erythrocyte distribution width Auto Ratio (RBC) 14.4 % Normal 11.5 - 14.5 [facility] Comment on above: Order Comment: Drop off AHA, Phleb, Anngee #3952 08/21/2017 pstei Performed By: #### L IPID ####[address] [address] Hematocrit Auto Volume Fraction (Bld) 37.2 % Normal 36.0 - 46.0 [facility] Comment on above: Order Comment: Drop off AHA, Phleb, Anngee #3954 08/21/2017 pstei Performed By: #### L IPID ####[address] [address] Hemoglobin mass conc (Bld) 12.0 g/dL Normal 12.0 - 16.0 [facility] Comment on above: Order Comment: Drop off AHA, Phleb, Anngee #3956 08/21/2017 pstei Performed By: #### L IPID ####[address] [address] MCHC Auto mass conc (RBC) 32.3 g/dL Normal 32.0 - 36.0 [facility] Comment on above: Order Comment: Drop off AHA, Phleb, Anngee #3958 08/21/2017 pstei Performed By: #### L IPID ####[address] [address] MCV Auto Entitic volume (RBC) 100 fL Normal 80 - 100 [facility] Comment on above: Order Comment: Drop off AHA, Phleb, Anngee #3959 08/21/2017 pstei Performed By: #### L IPID ####[address] [address] Platelets Auto #/vol (Bld) 322 10*3/uL Normal 150 - 450 [facility] Comment on above: Order Comment: Drop off AHA, Phleb, Anngee #3954 08/21/2017 pstei Performed By: #### L IPID ####[address] [address] RBC Auto #/vol (Bld) 3.71 x10E12/L Low 4.00 - 5.20 [facility] Comment on above: Order Comment: Drop off AHADonald Marilurochelle #3959 08/21/2017 pstei Performed By: #### L IPID ####[address] [address] WBC Auto #/vol (Bld) 8.2 10*3/uL Normal 4.4 - 11.3 [facility] Comment on above: Order Comment: Drop off AHA, Phleb, Anngee #3959 08/21/2017 pstei Performed By: #### L IPID ####[address] [address] BASIC METABOLIC PANELon 07-11 Anion gap 3 molar conc 11 mmol/L Normal 10 - 20 [facility] Comment on above: Performed By: #### L IPID ####[address] [address] Calcium mass conc 8.2 mg/dL Low 8.6 - 10.3 [facility] Comment on above: Performed By: #### L IPID ####[address] [address] Chloride molar conc 107 mmol/L Normal 98 - 107 [facility] Comment on above: Performed By: #### L IPID ####[address] [address] Creatinine mass conc 0.82 mg/dL Normal 0.50 - 1.05 [facility] Comment on above: Performed By: #### L IPID ####[address] [address] GFR- AM. >60 Normal >60 [facility] Comment on above: Result Comment: CALC ULATIONS OF ESTIMATED GFR ARE PERFORMED USING THE MDRD STUDY EQUATION FOR THE IDMS-TRACEABLE CREATININE METHODS. CLIN CHEM 2007;53:766-72 Performed By: #### L IPID ####[address] [address] GFR-NON AM. >60 Normal >60 [facility] Comment on above: Performed By: #### L IPID ####[facility] [place] [address] Glucose mass conc 92 mg/dL Normal 74 - 99 [facility] Comment on above: Performed By: #### L IPID ####[address] [place] [address] HCO3 molar conc (Bld) 26 mmol/L Normal 21 - 32 [facility] Comment on above: Performed By: #### L IPID ####[address] [place] [address] Potassium molar conc 3.5 mmol/L Normal 3.5 - 5.3 [facility] Comment on above: Performed By: #### L IPID ####[address] [place] [address] Sodium molar conc 140 mmol/L Normal 136 - 145 [facility] Comment on above: Performed By: #### L IPID ####[address] [address] Urea nitrogen mass conc 11 mg/dL Normal 6 - 23 [facility] Comment on above: Performed By: #### L IPID ####[address] [address] CBCon 07-29-2017 Erythrocyte distribution width Auto Ratio (RBC) 13.0 % Normal 11.5 - 14.5 [facility] Comment on above: Performed By: #### L IPID ####[address] [address] Hematocrit Auto Volume Fraction (Bld) 33.6 % Low 36.0 - 46.0 [facility] Comment on above: Performed By: #### L IPID ####[address] [place] [address] Hemoglobin mass conc (Bld) 10.8 g/dL Low 12.0 - 16.0 [facility] Comment on above: Performed By: #### L IPID ####[address] [address] MCHC Auto mass conc (RBC) 32.1 g/dL Normal 32.0 - 36.0 [facility] Comment on above: Performed By: #### L IPID ####[facility] [place] [address] MCV Auto Entitic volume (RBC) 103 fL High 80 - 100 [facility] Comment on above: Performed By: #### L IPID ####[address] [place] [address] Platelets Auto #/vol (Bld) 252 10*3/uL Normal 150 - 450 [facility] Comment on above: Performed By: #### L IPID ####[address] [place] [address] RBC Auto #/vol (Bld) 3.25 x10E12/L Low 4.00 - 5.20 [facility] Comment on above: Performed By: #### L IPID ####[address] [place] [address] WBC Auto #/vol (Bld) 6.3 10*3/uL Normal 4.4 - 11.3 [facility] Comment on above: Performed By: #### L IPID ####[address] [place] [address] CLOST.DIFF.TOXIN,PCRon 07-29 CLOST.DIFF.TOXIN,PCR NOT DETECTED Normal Not Detected [facility] Comment on above: Result Comment: This assay detects the presence of the tcdB (toxin B) gene via DNA amplification, and results should be interpreted in the context of the patients history and clinical findings. This test cannot be performed on formed stools or used as a test of cure, and should not be performed more than once per 7 days. Performed By: #### L IPID ####[address] [address] Daily Progress Note-Surgeryo n 07-29-2017 Protein mass conc Service: Surgery Sub jective Data:KATHERINE JUDGE is a 82 year old Female who is Hospital Day # 4. MORE AWAKE / TOLERATING PO / C DIFF NEGATIVE. Objective Data: Objective Information:T [id number] 7%Date/Time07/29 6: 6: 6: 6: 6:40Range(36.6C - 36.8C ) (64 - 71 ) (16 - 17 ) (131 - 154 )/ (70 - 73 ) (97%- 97% ) Pain with Activity reported at 07/29 7:20: 0Pain at Rest reported at 07/29 7:20: 0 Physical Exam: Constitutional: CACHETIC / AWAKE / ALERTGastrointestinal: Nondistended, soft, non-tender, no rebound tenderness orguarding, no masses palpable, no organomegaly, +BS, no bruits Assessment and Plan: Admitting Dx:Acute kidney injury: Entered Date: 26-Jul-2017 15:54 Additional Dx:Elevated serum creatinine: Entered Date: 16-Jul-2017 07:24Severe protein-calorie malnutrition (Carrera: less than 60% of standard weight):Entered Date: 12-Jul-2017 07:46S/P right hemicolectomy: Entered Date: 03-Jul-2017 00:33 Assessment:PLAN - IMPROVED / CONTINUE NUTRITIONAL SUPPLEMENTATION / WILL FOLLOW NEEDEDIN OP / D/W FAMILY AND PATIENT Electronic Signatures:Manny Arana) (Signed 29-Jul-2017 08:52)Authored: Service, Subjective Data, Objective Data, Assessment and Plan,Signature/Cosignature/A ttestation Last Updated: 29-Jul-2017 08:52 by Manny Arana) [facility] Discharge Planning Noteon Discharge Planning Note Discharge Needs Assessment:? Discharge Planning Assessment [id number]? Discharge Planning Assessment Completed bySom Chaudhari CC Patient Learning:? Factors that Impact Ability to Learnnone(1) Other Factors:? Functional Screen: In the recent/past 2-4 weeks, patient or family havenoticednew difficulty in safely performing activities of daily living, asignificant change in function affecting balance, or the ability to safelytransfer or ambulate (And is not on bedrest)(2) Discharge Needs:? [facility]Discharge Plannin07/29/17 Spoke with patient with family present, patient stated ok to talk infront of family, [facility]. [facility] no precert required. Willcontinue to follow. Som Chaudhari RNCC 07/29/17 Discharge Orders sent via [employer] to [facility]. [facility]. [facility] with[facility] also going to go to [facility] to help pt. get settled. Report alsocalled to nurse Olga at [facility] per resourse nurseJoy. LEIA Wallace Final Disposition/Discharge:Dispos ition/Discharge Information: Discharge/Transfer Information:? Discharge/Transfer Date/[id number] 14:27 Electronic Signatures:France Bean (RN) (Signed 29-Jul-2017 14:45)Authored: Discharge Planning Note, Final Disposition/DischargeSom Jama (CLIN COOR) (Signed 29-Jul-2017 11:19)Authored: Discharge Planning Note Last Updated: 29-Jul-2017 14:45 by France Bean (RN) References:1. Data Referenced From 5. Education 07/26/2017 05:07 PM2. Data Referenced From Admission Risk Screen - Adult 07/26/2017 05:07 PM Normal [facility] Discharge [id number] 06-20-2 018 Protein mass conc Discharge Orders:Ant icipated Discharge Date:? Anticipated Discharge [id number] Problem List: Admitting Dx:? Acute kidney injury: Catalog Name: Acute kidney failure, unspecified Additional Dx:? Hypercalcemia: Catalog Name: Hypercalcemia? Encephalopathy: Catalog Name: Encephalopathy, unspecified? Elevated serum creatinine: Catalog Name: Other specified abnormal findingsof blood chemistry? Cecal volvulus: Catalog Name: Volvulus? Severe protein-calorie malnutrition (Carrera: less than 60% of standardweight): Catalog Name: Unspecified severe protein-calorie malnutrition? Acute on chronic diastolic (congestive) heart failure: Catalog Name: Acuteon chronic diastolic (congestive) heart failure Hospital Providers:Provider RoleProvider Name? Manny Mcbride? Benjy Pruitt? Valerie Noriega Activity:activity as tolerated. Diet:? Dietregular Additive/Supplement 1:Supplement. Boost Plus 1 by mouth 3 times a day. Gold Form Orders:Care Recommendation:? I recommend that INPATIENT care is required at:Intermediate? Rehab Potential/FunctionMaintain? Provider CertificationI certify that inpatient care is required at the levelrecommended above. To the best of my knowledge, all information provided aboutthe individual is a true and accurate reflection of the individual's condition. Provider Follow Up:? Physician To Follow at Skilled/RehabAttending Physician at Skilled/Rehab Provider FINAL REVIEW of Orders:Final Review:? Final Review of Medication Reconciliation and Orders Completedby DANCE ARTIST? Reviewing ProviderPatricGIANNA Monroy at 29-Jul-2017 13:51:52 Gold Form - Nursing Summary:Special Treatments/Procedures (in past 14 days):? Chemotherapyno? Dialysisno? IV Medicationno? Oxygen Therapyno? Transfusionsno? Feverno? Radiationno? Ventilatorno? Tracheostomyno? Suctioningno Nutrition:? Nutritional Statusfeeds self, good set up? Nutrition CommentBoost Sensory/Comfort:? Visionadequate? Hearingadequate? Speechclear? Painno Elimination:? Bladdercontinent, occ. incont.? Bowelcontinent? Last Bowel [id number]? Toiletingtoilet Safety:? Siderailsyes? Siderails Number/ReasonSafety? Restraintsno? Sitterno? Fall Riskprevious falls, weakness Medication/Hygiene/Mobility: ? Medication Administrationassist? Bathingassist? Dressingassist? Bed Mobilitysupervision only? Wheelchairassist? Transfersassist? Ambulationassist Gold Form - [employer] Floorperson Summary:Referral Information:? Referral [facility]? Referring Facility [facility]? Contact Sebastian Chaudhari [facility]? Contact Phone [phone] Electronic Signatures:Nima Teixeira (RN) (Signed 29-Jul-2017 13:45)Authored: Gold Form - Nursing SummarySom Chaudhari (CLIN COOR) (Signed 29-Jul-2017 07:48)Authored: Gold Form - [employer] Floorperson SummaryValerie Jiang) (Signed 29-Jul-2017 10:13)Authored: Discharge OrdersAlex Tillman (DANCE ARTIST-COMMUNITY LIVING SPECIALIST) (Signed 29-Jul-2017 13:51)Authored: Discharge Orders, Gold Form Orders, Provider FINAL REVIEW of Orders Last Updated: 29-Jul-2017 13:51 by Alex Tillman (DANCE ARTIST-COMMUNITY LIVING SPECIALIST) Normal [facility] MAGNESIUMon 07-29-2017 Magnesium mass conc 1.38 mg/dL Low 1.60 - 2.40 [facility] Comment on above: Performed By: #### L IPID ####[address] [address] BASIC METABOLIC PANELon 07-10 Anion gap 3 molar conc 6 mmol/L Low 10 - 20 [facility] Comment on above: Performed By: #### L IPID ####[address] [address] Calcium mass conc 9.0 mg/dL Normal 8.6 - 10.3 [facility] Comment on above: Performed By: #### L IPID ####[address] [address] Chloride molar conc 108 mmol/L High 98 - 107 [facility] Comment on above: Performed By: #### L IPID ####[address] [address] Creatinine mass conc 1.00 mg/dL Normal 0.50 - 1.05 [facility] Comment on above: Performed By: #### L IPID ####[address] [address] GFR- AM. 64 mL/min/1.73m2 Normal >60 [facility] Comment on above: Result Comment: CALC ULATIONS OF ESTIMATED GFR ARE PERFORMED USING THE MDRD STUDY EQUATION FOR THE IDMS-TRACEABLE CREATININE METHODS. CLIN CHEM 2007;53:766-72 Performed By: #### L IPID ####[address] [address] GFR-NON AM. 53 mL/min/1.73m2 Abnormal >60 [facility] Comment on above: Performed By: #### L IPID ####[address] [address] Glucose mass conc 92 mg/dL Normal 74 - 99 [facility] Comment on above: Performed By: #### L IPID ####[facility] [place] [address] HCO3 molar conc (Bld) 30 mmol/L Normal 21 - 32 [facility] Comment on above: Performed By: #### L IPID ####[facility] [place] [address] Potassium molar conc 3.3 mmol/L Low 3.5 - 5.3 [facility] Comment on above: Performed By: #### L IPID ####[facility] [place] [address] Sodium molar conc 141 mmol/L Normal 136 - 145 [facility] Comment on above: Performed By: #### L IPID ####[facility] [place] [address] Urea nitrogen mass conc 19 mg/dL Normal 6 - 23 [facility] Comment on above: Performed By: #### L IPID ####[facility] [place] [address] BONE SCAN/ WHOLE BODYon 07-10 BONE SCAN/ WHOLE BODY nt Name: KATHERINE JUDGE STUDY:BONE SCAN/ WHOLE BODY; 07/28/2017 3:28 pm INDICATION:Signs/Symptoms: losing weight. History of bilateral knee replacements. COMPARISON:CT scan of the abdomen and pelvis dated 07/02/2017. CT scan of thehead dated 07/26/2017. ORDERING CLINICIAN:ALEX TILLMAN TECHNIQUE:DIVISION OF NUCLEAR MEDICINEBONE SCAN, WHOLE BODY plus REGIONAL VIEWS The patient received an intravenous dose of 27 mCi of Tc-99m MDP.Anterior and posterior images of the skeleton from skull vertex tofeet were then acquired. Additional regional skeletal images werealso obtained. FINDINGS:What likely reflect compression fractures in varying stages ofhealing are seen throughout the thoracolumbar spine, including atT11, T10 and T8, as well as at T3. Focal increases consistent withsubacute or remote rib fractures are identified within the posterioraspect of the right 8th through 10th ribs. There is a heterogeneous appearance to the sternum, likely due to theprior sternotomy, as seen on the limited images through the chest onthe recent CT scan. Arthritic changes are present within the bilateral shoulders andhips. Bilateral knee prostheses are in place. Note of kyphoscoliosisof the thoracolumbar spine, with accompanying arthritic changes. Lateral views of the calvarium reveal irregular photopenia in thetemporal portion of the calvarium on the left side, but no discreteabnormalities are identified in this region on the CT scan, andtherefore, it may reflect a normal variation. IMPRESSION:1. Multilevel compression fractures within the thoracolumbar spine,in various stages of healing.2. Subacute/chronic right-sided rib fractures.3. Probable post sternotomy changes, as above.4. Diffuse arthritic changes.5. Irregular photopenia in the left side of the calvarium, butwithout a definite corresponding abnormality on the recent CT scan,and therefore, this may reflect a normal variation.This study was interpreted at [facility]. Electronically signed by: MICHEAL AGUIRRE MD Normal [facility] CBCon 07-28-2017 Erythrocyte distribution width Auto Ratio (RBC) 13.1 % Normal 11.5 - 14.5 [facility] Comment on above: Performed By: #### L IPID ####[id number] [place] [address] Hematocrit Auto Volume Fraction (Bld) 30.5 % Low 36.0 - 46.0 [facility] Comment on above: Performed By: #### L IPID ####[facility] [place] [address] Hemoglobin mass conc (Bld) 9.5 g/dL Low 12.0 - 16.0 [facility] Comment on above: Performed By: #### L IPID ####[facility] [place] [address] MCHC Auto mass conc (RBC) 31.1 g/dL Low 32.0 - 36.0 [facility] Comment on above: Performed By: #### L IPID ####[facility] [place] [address] MCV Auto Entitic volume (RBC) 103 fL High 80 - 100 [facility] Comment on above: Performed By: #### L IPID ####[facility] [place] [address] Platelets Auto #/vol (Bld) 247 10*3/uL Normal 150 - 450 [facility] Comment on above: Performed By: #### L IPID ####[facility] [place] [address] RBC Auto #/vol (Bld) 2.96 x10E12/L Low 4.00 - 5.20 [facility] Comment on above: Performed By: #### L IPID ####[facility] [place] [address] WBC Auto #/vol (Bld) 5.4 10*3/uL Normal 4.4 - 11.3 [facility] Comment on above: Performed By: #### L IPID ####[facility] [place] [address] Daily Progress Note-Medicine on 07-28-2017 Protein mass conc Service: Medicine Rick bjective Data:KATHERINE JUDGE is a 82 year old Female who is Hospital Day # 3. Seen and examined today. Sitting up in recliner. Stated that she is unsureabout how she feels today. Reports eating better today. +BM yesterday.Discussed about starting an appetite stimulant. Patient is agreeable.Otherwise, patient denies chest pain, breathing difficulties, abdominal pain,N/V/C. No fever or chills. Denies urinary burning, frequency, hesitancy. Overnight Events: Patient had an uneventful night. Objective Data: Objective Information:T [id number]/769 6%Date/Time07/28 6:4907/28 6:4907/28 6:4907/28 6: 6:49Range(36.6C - 37.2C ) (68 - 70 ) (18 - 18 ) (99 - 146 )/ (53 - 76 ) (93%- 99% ) As of 27-Jul-2017 20:30:00, patient is on 2 L/min of oxygen via nasal cannula.Highest temp of 37.2 C was recorded at 07/27 20:10 Pain at Rest reported at 07/28 11:52: 5 Physical Exam: Constitutional: Cachetic, awake/alert/oriented x2, no distress, calm andcooperativeEyes: PERRL, EOMI, clear scleraENMT: mucous membranes dry, no apparent injury, no lesions seenHead/Neck: No lymphadenopathy, thyromegaly, or JVD.Respiratory/Thorax: Diminished breath soundsCardiovascular: Regular, rate and rhythm, no murmurs, 2+ equal pulses of theextremities, normal S 1and S 2Gastrointestinal: Soft, non-tender, non-distended, +BSGenitourinary: DeferredMusculoskeletal: ROM intact, no joint swelling, generalized weaknessExtremities: MOURA equally; peripheral pulses intact; no edemaNeurological: Alert and Oriented x 2Lymphatic: No significant lymphadenopathyPsychological : Appropriate mood and behaviorSkin: Warm and dry, no lesions, no rashes Medication: Medications: Continuous Medications ---- 1. Sodium Chloride 0.9% with Potassium CL 20 mEq Premix Fluid: 1000 mLIntraVenous Scheduled Medications ---- 1. buPROPion Extended Release (24 hour): 150 mg Oral Every 24 Hours2. Cholestyramine: 4 gram(s) Oral 4 Times a Day3. Clopidogrel: 75 mg Oral Daily4. Enoxaparin SubCutaneous: 30 mg SubCutaneous Every 24 Hours5. Famotidine: 20 mg Oral At Bedtime6. Ferrous Sulfate: 325 mg Oral Daily7. Fluticasone 50 microgram/ Nasal Inhalation: 1 spray(s) Each NostrilDaily8. Furosemide: 20 mg Oral Daily9. Gabapentin: 300 mg Oral 3 Times a Day10. Isosorbide Mononitrate Extended Release: 60 mg Oral Daily11. Lisinopril: 10 mg Oral Daily12. Metoprolol Tartrate: 50 mg Oral Every 12 Hours13. metroNIDAZOLE: 500 mg Oral Every 8 Hours14. Potassium Chloride Extended Release: 10 mEq Oral Daily15. Sertraline: 150 mg Oral Daily16. Simvastatin: 40 mg Oral At Fzvsrzk74. tiZANidine: 2 mg Oral Every 24 Hours PRN Medications ---- 1. Acetaminophen: 650 mg Oral Every 4 Hours2. Bisacodyl Enteric Coated: 5 mg Oral Once3. Magnesium Hydroxide -Al Hydrox -Simethicone Oral Liquid: 30 mL OralEvery 6 Hours4. traMADol: 50 mg Oral Every 6 Hours Recent Lab Results: Results:Complete Blood Auyob29-Vfq-8949 08:25:00 ResultValueReference RangeWhite Blood Cell Count5.44.4 - 11.3 x10E9/LRed Blood Cell Count2.96 L4.00 - 5.20 x10E12/LHGB9.5 L12.0 - 16.0 g/dLHCT30.5 L36.0 - 46.0 %TAV776 H80 - 100 qQPCYA77.1 L32.0 - 36.0 g/fWCTG766524 - 450 x10E9/LRDW-CV13.111.5 - 14.5 % Basic Metabolic Kvuxr47-Urx-9156 08:25:00 ResultValueReference RangeGlucose, Vpxyh3484 - 99 mg/mOBX087455 - 145 mmol/LK3.3 L3.5 - 5.3 mmol/TOK234 H98 - 107 mmol/LBicarbonate, Nwomd9749 - 32 mmol/LAnion Gap, Serum6 L10 - 20 mmol/EDHJ899 - 23 mg/dLCREAT1.000.50 - 1.05 mg/dLGFR-Non Gyydvopa46 A>60 mL/min/1.80l0LCN-Tmmsaop Xuhebgtx90>60 mL/min/1.18l4Tmcodpk, Serum9.08.6 - 10.3 mg/dL Assessment and Plan:Assessment: #1 Acute Encephalopathy - likely multifactoral- including hypercalcemia, severedehydration, malnutrition, less likely sepsis and infectious etiology.- treat underlying conditions and monitor for improvement #2 Hypercalcemia- Initially I was concerned about malignancy- includingmultiple myeloma.- PTH level 6.3.- c/w IVF- calcium is slowly decreasing- now 9.0 #3 Severe dehydration and Severe Protein Calorie Malnutrition with Failure toThrive. 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 #7 Depression- Wellbutrin and sertraline. #8 GERD- Continue with H2 blockers. #9 Fluids/Electrolytes/Nutritio n- Laboratory data reviewed. Electrolytes stable except for hypokalemia- 3.3.Replaced. #10 DVT Prophylaxis- start lovenox subQ 30mg #11 Anemia- monitor H&H- 9.5, 30.5.- c/w Iron supplementation #12 Disposition- consult PT OT Nutrition Diagnosis:? Nutrition DiagnosisAgree with dietitian?s assessment and diagnoses as stated.Severe protein calorie malnutrition related to acute on chronic illness asevidence by moderate to severe muscle and subcutaneous fat loss in multiplelocations, 9.5% weight loss x 1.5 weeks, pt reports poor appetite with variableintake. Signature/Cosignature/Attest ation:Scribe Only - Scribe AttestationI am scribing for, and in the presence of theprovider.Scribing on behalf of (Provider name)Dr Escobar Provider Only - Attestation to ScribeThe documentation recorded by theindividual acting as Scribe, in my presence, accurately and completely reflectsthe service(s) I personally performed and the decisions made by me. Electronic Signatures:Va Paez) (Entered 28-Jul-2017 14:24)Entered: Service, Subjective Data, Objective Data, Assessment and Plan,Signature/Cosignature/A ttestationValerie Jiang) (Signed 28-Jul-2017 17:01)Authored: Service, Subjective Data, Objective Data, Assessment and Plan,Signature/Cosignature/A ttestation Last Updated: 28-Jul-2017 17:01 by Valerie Jiang) Normal [facility] BASIC METABOLIC PANELon 06-1 Anion gap 3 molar conc 9 mmol/L Low 10 - 20 [facility] Comment on above: Performed By: #### L IPID ####[id number] [place] [address] Calcium mass conc 10.9 mg/dL High 8.6 - 10.3 [facility] Comment on above: Performed By: #### L IPID ####[facility] [place] [address] Chloride molar conc 105 mmol/L Normal 98 - 107 [facility] Comment on above: Performed By: #### L IPID ####[id number] [place] [address] Creatinine mass conc 1.47 mg/dL High 0.50 - 1.05 [facility] Comment on above: Performed By: #### L IPID ####[address] [place] [address] GFR- AM. 41 mL/min/1.73m2 Abnormal >60 [facility] Comment on above: Result Comment: CALC ULATIONS OF ESTIMATED GFR ARE PERFORMED USING THE MDRD STUDY EQUATION FOR THE IDMS-TRACEABLE CREATININE METHODS. CLIN CHEM 2007;53:766-72 Performed By: #### L IPID ####[address] [place] [address] GFR-NON AM. 34 mL/min/1.73m2 Abnormal >60 [facility] Comment on above: Performed By: #### L IPID ####[id number] [place] [address] Glucose mass conc 91 mg/dL Normal 74 - 99 [facility] Comment on above: Performed By: #### L IPID ####[facility] [place] [address] HCO3 molar conc (Bld) 29 mmol/L Normal 21 - 32 [facility] Comment on above: Performed By: #### L IPID ####[address] [place] [address] Potassium molar conc 3.9 mmol/L Normal 3.5 - 5.3 [facility] Comment on above: Performed By: #### L IPID ####[address] [address] Sodium molar conc 139 mmol/L Normal 136 - 145 [facility] Comment on above: Performed By: #### L IPID ####[id number] [place] [address] Urea nitrogen mass conc 33 mg/dL High 6 - 23 [facility] Comment on above: Performed By: #### L IPID ####[address] [place] [address] CBCon 07-27-2017 Erythrocyte distribution width Auto Ratio (RBC) 13.2 % Normal 11.5 - 14.5 [facility] Comment on above: Performed By: #### L IPID ####[id number] [place] [address] Hematocrit Auto Volume Fraction (Bld) 31.3 % Low 36.0 - 46.0 [facility] Comment on above: Performed By: #### L IPID ####[address] [address] Hemoglobin mass conc (Bld) 9.8 g/dL Low 12.0 - 16.0 [facility] Comment on above: Performed By: #### L IPID ####[address] [address] MCHC Auto mass conc (RBC) 31.3 g/dL Low 32.0 - 36.0 [facility] Comment on above: Performed By: #### L IPID ####[address] [address] MCV Auto Entitic volume (RBC) 105 fL High 80 - 100 [facility] Comment on above: Performed By: #### L IPID ####[address] [place] [address] Platelets Auto #/vol (Bld) 241 10*3/uL Normal 150 - 450 [facility] Comment on above: Performed By: #### L IPID ####[address] [place] [address] RBC Auto #/vol (Bld) 2.99 x10E12/L Low 4.00 - 5.20 [facility] Comment on above: Performed By: #### L IPID ####[facility] [place] [address] WBC Auto #/vol (Bld) 6.3 10*3/uL Normal 4.4 - 11.3 [facility] Comment on above: Performed By: #### L IPID ####[facility] [place] [address] Consulton 07-27-2017 Consult Service:Consult:Cons ult requested by (Attending Name): Joy: PATIENT KNOWN TO ME / S/P RIGHT COLECTOMY FOR CECAL VOLVULUS / History of Present Illness:HPI:PATIENT 24 DAYS S/P RIGHT COLECTOMY FOR CECAL VOLVULUS / WAS DC TO MD AND DOINGRESONABLE WELL / NOTED TO BE CONFUSED AND WAS READMITTED TO ER WITH ELEVATEDBUN AND CR AND HYPERCALCEMIA / POOR APPETITE / WEAK / NO ABDOMINAL PAIN / NONAUSEA OR VOMITING Past Medical History/Past Surgical History - see Patient Info Tab/SignificantEvents Past Medical/Surgical History: Medical History:Gastrocutaneous fistula:Constipation:Ileus:E xploratory laparotomy:Anemia due to unknown or multiple mechanisms (disorder):Transient ischemic colitis (disorder):Protein malnutrition unspecified (disorder):Hypokalemia (disorder):Magnesium deficiency:Colitis (disorder):Small bowel obstruction (disorder):Acute bowel obstruction: Onset Date: 16-Ohw-7231Sranftpvqxr abdominal pain (finding):Acute bowel obstruction:Acute bowel obstruction: Review Family/Social History and ROS:Family History:Family History: reviewed and not pertinent to presenting problem Social History: Social History: denies smoking, alcohol and drug use Constitutional: POSITIVE: Anorexia, Malaise; NEGATIVE: Fever, Chills, WeightLoss Eyes: NEGATIVE: Blurry Vision, Drainage, Diploplia, Redness, Vision Loss/Change ENMT: NEGATIVE: Nasal Discharge, Nasal Congestion, Ear Pain, Mouth Pain, ThroatPain Respiratory: NEGATIVE: Dry Cough, Productive Cough, Hemoptysis, Wheezing,Shortness of Breath Cardiac: NEGATIVE: Chest Pain, Dyspnea on Exertion, Orthopnea, Palpitations,Syncope Gastrointestinal: NEGATIVE: Nausea, Vomiting, Diarrhea, Constipation, AbdominalPain Genitourinary: NEGATIVE: Discharge, Dysuria, Flank Pain, Frequency, Hematuria Musculoskeletal: POSITIVE: Decreased ROM, Pain, Swelling, Stiffness, Weakness Neurological: POSITIVE: Dizziness, Confusion; NEGATIVE: Headache, Seizures,Syncope Psychiatric: POSITIVE: Anxiety; NEGATIVE: Mood Changes, Hallucinations, SleepChanges, Suicidal Ideas Skin: NEGATIVE: Mass, Pain, Pruritus, Rash, Ulcer Allergies:? Lincocin: Rash? penicillin: Rash? tetracycline: Rash? erythromycin: Rash? Keflex: Syncope? Lunesta: Unknown? penicillin G benzathine: Unknown? Biaxin: Unknown? trazodone: Unknown? Clindamycin Hydrochloride: Unknown? aspirin: GI Bleeding? Vioxx: Bleeding? NSAIDs: GI Bleeding? Mold/Fungi: Unknown? Pollen: Unknown Intolerances:? Ativan: Confusion? Restoril: Confusion Objective: Objective Information: T PAJALeR0Qmuoy61.70386809/659 7%Date/Time07/26 21: 21: 21: 21: 21:00Range(36.7C - 36.8C ) (62 - 71 ) (18 - 18 ) (101 - 131 )/ (57 - 67 ) (97%- 99% ) As of 26-Jul-2017 20:54:00, patient is on 2% oxygen via nasal cannula. Physical Exam: Constitutional: CACHETIC , no distress, alert and cooperativeEyes: clear scleraENMT: mucous membranes moist, no apparent injury, no lesions seenHead/Neck: Neck supple, no apparent injury, no bruitsRespiratory/Thorax: Patent airways, CTAB, normal breath soundsCardiovascular: Regular, rate and rhythm, no murmurs, normal S 1and S 2Gastrointestinal: Nondistended, soft, non-tender, no guarding, no massespalpable, no organomegaly, INCISION HEALED NICELYGenitourinary: No Discharge, vesicles or other abnormalitiesMusculoskeletal : ROM intact, no joint swelling,Extremities: normal extremities, no cyanosis edema, contusions or wounds, noclubbingNeurological: intact senses, WEAKLymphatic: No significant lymphadenopathyPsychological : Appropriate mood and behaviorSkin: Warm and dry, no lesions, no rashes Recent Lab Results: Results: I have reviewed these laboratory results: Complete Blood Count [[id number] 06:25:00], Basic Metabolic Panel [Drawn 27-Jul-2017 06:25:00],Comprehensive Metabolic Panel [Drawn 26-Jul-2017 14:34:00]. Assessment:IMP - MALNUTRITION / HYPERCALCEMIA/ ELEVATED BUN/CR / 24 DAY S/P RIGHTCOLECTOMY FOR CECAL VOLVULUSPLAN - ENHANCE NUTRITION/ GENTLE HYDRATION / DECLINES FEEDING TUBE / DIETARYCONSULT / WILL FOLLOW / CHECK PTH Electronic Signatures:Manny Arana) (Signed 27-Jul-2017 07:34)Authored: Service, History of Present Illness, Past Medical/Surgical History,Review Family/Social History and ROS, Allergies, Objective,Assessment/Recomme ndations, Signature/Cosignature/Attest ation Last Updated: 27-Jul-2017 07:34 by Manny Arana) Normal [facility] History and Physicalon 07-27 History and Physical History of Present Illness:Admission Reason: Encephalopathy; HypercalcemiaHPI:Ms. Judge is an 82 year old female who [facility] status. Patient was seen and examined today. She is laying inbed, sleeping. Arouable but is drowsy. She is confused initially, stating thatshe does not know why she was sent to the hospital. Then she proceeded to saythat she came because she was sleepy. Per RN, she only took a few bites atbreakfast. Patient had a right colectomy [address] Araan for cecalvolvulus. She went to a SNF for rehab. Was sent to ER due to altered mentalstatus. Reports a poor appetite. Feels weak. Generalized pain. +BM today. ABDtenderness on exam. Otherwise pt denies N/V/C, fever or chills. No breathingdifficulties. In ED --> VS: T 98.4, HR 62, RR 18, SpO2 98%, 101/57Laboratory Data: Glucose; Sodium; Potassium; BUN; Creatinine; WBC; Hgb; Hct;Plts;Radiology: CT of head negative for anything acute. CXR showed mildly displacedfracture of 8th and 9th ribs otherwise, negative.EKG: Sinus roger with RBBB. T wave inversion in lead 3 and aVF.Medications: Cipro, IV bolus f8Ubbarmc was admitted to med surg for further medical management. Past Medical/Surgical History:Gastrocutaneous fistulaConstipationIleusExpl oratory laparotomyAnemiaTransient ischemic colitis (disorder)Protein malnutrition unspecified (disorder)Hypokalemia (disorder)Magnesium deficiencyColitis (disorder)Small bowel obstruction (disorder)Acute bowel obstruction: Onset Date: 64-Qqa-2533Ezsitaodacy abdominal pain (finding)CAD, status post 2013 circumflex angioplasty, status post bypass patent SVG tothe RCA, atretic STRONG to the obtuse marginal, mild diffuse disease in the leftmain and LADhypertensionhyperlipidemi aanemia 2/2 gastrointestinal bleeding. Family History:Denies Social History:Denies smoking, alcohol Review of Systems:Constitutional: +weight loss, anorexia No fever, chillsEyes: No blurry vision, diplopia or vision lossENT: No nasal congestion, earache or sore throatRespiratory: No cough, SOB, hemoptysis or wheezingCardiac: No Chest Pain or palpitations, dyspnea on exertion, or orthopneaGastrointestinal: +ABD pain No nausea, vomiting, diarrhea, melena, hemoptysis,or hematocheziaGenitourinary: No dysuria, hematuria, frequency, urgency, incontinence orflank painMusculoskeletal: + arthralgia, myalgia, stiffness, weaknessNeurological: No dizziness, light-headedness, blurry vision, headache, orsyncopePsychiatric: No history of anxiety, depression, hallucinations,suicidal/homi cidal ideationSkin: No Rash or pruritis, ulcersEndocrine: No heat or cold intolerance, polyuria, polydipsiaHematologic: No bruising, petechiae Comorbidities:? Comorbid Conditionshypertension Allergies:? Lincocin: Rash? penicillin: Rash? tetracycline: Rash? erythromycin: Rash? Keflex: Syncope? Lunesta: Unknown? penicillin G benzathine: Unknown? Biaxin: Unknown? trazodone: Unknown? Clindamycin Hydrochloride: Unknown? aspirin: GI Bleeding? Vioxx: Bleeding? NSAIDs: GI Bleeding? Mold/Fungi: Unknown? Pollen: Unknown Intolerances:? Ativan: Confusion? Restoril: Confusion Objective: Objective Information: T MNNTFkP6Pnxiw12.13317449/619 8%Date/Time07/27 6:5807/27 6: 6:5807/27 6:58618 6:58Range(36.7C - 36.8C ) (62 - 71 ) (18 - 18 ) (129 - 140 )/ (61 - 67 ) (97%- 99% ) As of 26-Jul-2017 20:54:00, patient is on 2% oxygen via nasal cannula. Pain at Rest reported at 07/26 20:54: 0 Weights07/27 14:03: Weight in lbs ((lbs)) 89.56 14:03: BMI (kg/m2) (BMI (kg/m2)) 16.38707/26 17:00: Weight in kg (Weight (kg)) 40.6 Physical Exam: Constitutional: Cachetic, awake/alert/oriented x2, drowsy, no distress, whenobserved sleeping she is having a slight jerking movement of head andshoulders. Resolved on arousal. Grimaces with touch.Eyes: PERRL, EOMI, clear scleraENMT: mucous membranes dry, no apparent injury, no lesions seenHead/Neck: No lymphadenopathy, thyromegaly, or JVD.Respiratory/Thorax: Diminished breath soundsCardiovascular: Regular, rate and rhythm, no murmurs, 2+ equal pulses of theextremities, normal S 1and S 2Gastrointestinal: Soft, non-tender, non-distended, +BSGenitourinary: No Discharge, vesicles or other abnormalitiesMusculoskeletal : ROM intact, no joint swelling, generalized weaknessExtremities: MOURA equally; peripheral pulses intact; no edemaNeurological: Alert and Oriented x 2Lymphatic: No significant lymphadenopathyPsychological : Drowsy, mild confusedSkin: Warm and dry, no lesions, no rashes Medications: Medications: Continuous Medications ---- 1. Sodium Chloride 0.9% with Potassium CL 20 mEq Premix Fluid: 1000 mLIntraVenous Scheduled Medications ---- 1. buPROPion Extended Release (24 hour): 150 mg Oral Every 24 Hours2. Clopidogrel: 75 mg Oral Daily3. Famotidine: 20 mg Oral At Bedtime4. Ferrous Sulfate: 325 mg Oral Daily5. Fluticasone 50 microgram/ Nasal Inhalation: 1 spray(s) Each NostrilDaily6. Furosemide: 20 mg Oral Daily7. Gabapentin: 300 mg Oral 3 Times a Day8. Isosorbide Mononitrate Extended Release: 60 mg Oral Daily9. Lisinopril: 10 mg Oral Daily10. Metoprolol Tartrate: 50 mg Oral Every 12 Hours11. Potassium Chloride Extended Release: 10 mEq Oral Daily12. Sertraline: 150 mg Oral Daily13. Simvastatin: 40 mg Oral At Rqliltu22. Technetium Tc 99m Medronate (MDP - Radiology Contrast): 25 milliCurieIntraVenous Push Once15. tiZANidine: 2 mg Oral Every 24 Hours16. Vancomycin Oral Liquid: 125 mg Oral Every 6 Hours PRN Medications ---- 1. Acetaminophen: 650 mg Oral Every 4 Hours2. Bisacodyl Enteric Coated: 5 mg Oral Once3. Magnesium Hydroxide -Al Hydrox -Simethicone Oral Liquid: 30 mL OralEvery 6 Hours4. traMADol: 50 mg Oral Every 6 Hours Recent Lab Results: Results:Complete Blood Zhpjz71-Doh-1927 06:25:00 ResultValueReference RangeWhite Blood Cell Count6.34.4 - 11.3 x10E9/LRed Blood Cell Count2.99 L4.00 - 5.20 x10E12/LHGB9.8 L12.0 - 16.0 g/dLHCT31.3 L36.0 - 46.0 %FYE131 H80 - 100 dLKIMX68.3 L32.0 - 36.0 g/iXYDA929124 - 450 x10E9/LRDW-CV13.211.5 - 14.5 % Basic Metabolic Tuuyh79-Try-2016 06:25:00 ResultValueReference RangeGlucose, Sebmf4229 - 99 mg/nFTJ034945 - 145 mmol/LK3.93.5 - 5.3 mmol/YKW28985 - 107 mmol/LBicarbonate, Zngjx6453 - 32 mmol/LAnion Gap, Serum9 L10 - 20 mmol/LBUN33 H6 - 23 mg/dLCREAT1.47 H0.50 - 1.05 mg/dLGFR-Non Lftthygt72 A>60 mL/min/1.08l4SJP-Hssempo Fqszvtkb49 A>60 mL/min/1.34r0Djufaqs, Serum10.9 H8.6 - 10.3 mg/dL Brain Natriuretic Kvbjqae65-Yoo-7610 15:10:00 ResultValueReference RangeBrain Natriuretic Hwggfcz423 - 99 pg/mL Wrufubstrj84-Muz-1227 15:06:00 ResultValueReference RangeColor, UrineYELLOW Reference Range: STRAW,YELLOWAppearance, UrineHAZYCLEARSpecific Max, Urine1.0091.005 - 1.035pH, Urine6.05.0 - 8.0Protein, UrineNEGATIVENEGATIVE mg/dLGlucose, UrineNEGATIVENEGATIVE mg/dLBlood, UrineSMALL(1+) ANEGATIVEKetones, UrineNEGATIVENEGATIVE mg/dLBilirubin, UrineNEGATIVENEGATIVEUrobili nogen, Urine<2.00.0 - 1.9 mg/dLNitrite, UrineNEGATIVENEGATIVELeukocy te Esterase, UrineMODERATE(2+) ANEGATIVE Urinalysis, Ybtizhzedbx13-Zfn-2534 15:06:00 ResultValueReference RangeWhite Cells8 A0 - 5 /HPFRed Blood Cells2 A0 - 5 /HPFEpithelial Cells, Gicvzkxg1Rzxrunktkq Cells, Transitional<1Bacteria, Urine4+ AMucousFEWHyaline Casts3+ AAmorphous Crystals1+ Culture, BloodTrending View Ftjtfj39-Pdg-7207 14:35:8764-Pbx-4935 14:34:00Reference RangeCulture, BloodNEGATIVE TO DATE, CULTURE IN PROGRESS.NEGATIVE TO DATE, CULTUREIN PROGRESS. Comprehensive Metabolic Wmurm39-Ulb-9969 14:34:00 ResultValueReference RangeLab Comment:Dr Vance notified, 07/26/2017 15:10Glucose, Fqdca584 H74 - 99 mg/eFKR162013 - 145 mmol/LK4.83.5 - 5.3 mmol/FMR9890 - 107 mmol/LBicarbonate, Uesjx7340 - 32 mmol/LAnion Gap, Qrqoh7727 - 20 mmol/LBUN43 H6 - 23 mg/dLCREAT1.94 H0.50 - 1.05 mg/dLGFR-Non Qtlsaoyv83 A>60 mL/min/1.40i7JLJ-Gntgooy Bwbmqbdv93 A>60 mL/min/1.45r2Brezqbi, Serum13.2 HH8.6 - 10.3 mg/dLALB3.0 L3.4 - 5.0 g/jLKMNU3556 - 136 U/LT Pro6.66.4 - 8.2 g/Rashi Bili0.40.0 - 1.2 mg/dLAlanine Aminotransferase, Ilouz853 - 45 U/LAspartate Transaminase, Uigqb959 - 39 U/L Complete Blood Count + Laotsgywvbjk54-Qwj-3136 14:34:00 ResultValueReference RangeWhite Blood Cell Count10.54.4 - 11.3 x10E9/LRed Blood Cell Count3.33 L4.00 - 5.20 x10E12/LHGB11.0 L12.0 - 16.0 g/dLHCT34.2 L36.0 - 46.0 %TDA809 H80 - 100 wOZEYU54.232.0 - 36.0 g/qFPXM097458 - 450 x10E9/LRDW-CV13.311.5 - 14.5 %Neutrophil %86.540.0 - 80.0 %Immature Granulocytes %0.50.0 - 0.9 %Lymphocyte %10.613.0 - 44.0 %Monocyte %2.02.0 - 10.0 %Eosinophil %0.20.0 - 6.0 %Basophil %0.20.0 - 2.0 %Neutrophil Count9.11 H1.60 - 5.50 x10E9/LLymphocyte Count1.110.80 - 3.00 x10E9/LMonocyte Count0.210.05 - 0.80 x10E9/LEosinophil Count0.020.00 - 0.40 x10E9/LBasophil Count0.020.00 - 0.10 x10E9/L PT + INR, Xjhtzk00-Ijt-1259 14:34:00 ResultValueReference RangeProthrombin Time, Yzrrxt16.3 H9.8 - 12.7 secInternational Normalized Ratio, Plasma1.2 H0.9 - 1.1 RBC Yyeewljhlg56-Oht-0396 14:34:00 ResultValueReference RangeRed Blood Cell MorphologySEE COMMENT NO SIGNIFICANT RBC ABNORMALITIES SEEN ONSMEAR REVIEW. Lipase, Lyhsr82-Bjv-4938 14:34:00 ResultValueReference RangeLipase, Atwde484 - 82 U/L Lactate, Fseof21-Yws-3813 14:34:00 ResultValueReference RangeLactate, Level1.10.4 - 2.0 mmol/L Troponin I, Qskal66-Ndg-7658 14:34:00 ResultValueReference RangeTroponin I, Serum0.030.00 - 0.03 ng/mL Radiology Results: Results: NO ACUTE INTRACRANIAL PROCESS CT Head without Contrast [Jul 26 2017 3:46PM] Mildly displaced fractures of the right 8th and 9th ribs. Otherwise no definiteactive disease in the chest identified. Xray Chest 1 View [Jul 26 2017 3:26PM] Assessment and Plan:Assessment:his is an 82-year-old female with recent laparotomy and colectomy,C. difficilecolitis, was brought to emergency room secondary to change of mental status.Problem #1 acute encephalopathy. Most likely secondary to multiple etiologyincluding hypercalcemia, severe dehydration, malnutrition, less likely sepsisand infectious etiology.Problem #2 hypercalcemia, concerned about malignancy, including multiplemyeloma, awaiting PTH results, IV fluid already startent's calcium is slowlydecreasing, considering further major including injection of calcitonin,pamidronate if necessary.Problem #3 severe dehydration/malnutrition. 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 Arana.considering appetite stimulantsProblem #4 C. difficile colitis, will continue with vancomycin, if patientcontinued to have diarrhea C. difficile study again,Problem #5 CAD continue with metoprolol, Plavix and lisinopril.Problem #6 depression on Wellbutrin and sertraline.Problem #7. GERD. Continue with H2 blockers. Signatures/Attestation/Certi fication:Scribe Only - Scribe AttestationI am scribing for, and in the presence of theprovider.Scribing on behalf of (Provider name)Dr Escobar Provider Only - Attestation to ScribeThe documentation recorded by theindividual acting as Scribe, in my presence, accurately and completely reflectsthe service(s) I personally performed and the decisions made by me.Attending Provider ? Inpatient Certification StatementN/A - observationpatient/other outpatient visits Electronic Signatures:Va Paez (NE) (Entered 27-Jul-2017 15:06)Entered: History of Present Illness, Comorbidities, Allergies, Objective,Signatures/Attesta tion/CertificationValerie Jiang) (Signed 27-Jul-2017 21:08)Entered: Assessment and PlanAuthored: History of Present Illness, Comorbidities, Allergies, Objective,Assessment and Plan, Signatures/Attestation/Certi fication Last Updated: 27-Jul-2017 21:08 by Valerie Jiang) [facility] Nutrition Therapy-Assessment on 07-27-2017 Nutrition Therapy-Assessment Assessment Subjective/Objective:Note Type: Assessment Note Authored by: Registered Dietitian NutritionistPager Number: [phone] Nutrition Note:The patient is a 82 year old Female admitted for rehab. Nutrition consulted per nursing screen for MST 2 or more, eating poorly/recentweight loss and for assessment recommendations. Per chart: Pt presented to ED from [facility] facility on 07/26 atrecommendation of primary care physician for further evaluation of alteredmental status. Workup in ED showed elevated BUN/Cr and hypercalcemia. CT ofbrain showed no acute findings. Chest xray showed fractured 8th and 9th ribs.Pt given 2 L NS bolus in ED and admitted due to RADHA, encephalopathy and forfurther evaluation, observation, consult to surgery, and IV fluids. Pt waspreviously admitted on 07/02 for cecal volvulus, s/p R hemicolectomy on 07/03.History of C. Diff and UTI. Visited pt at bedside, pt reports poor appetite; observed lunch tray beingremoved untouched, except for small amount of pudding consumed. Pt says shewas eating a little bit at nursing facility. Per flowsheet, pt ate 75% ofbreakfast this morning and 100% of dinner last night. Per physician's note, ptdeclined feeding tube. Pt refused Boost Pudding, says she likes regularpudding. Pt says she would try Boost Plus Sycamore. Says she does not likeeggs. Noted different height on previous admission 157.4 cm, height on thisadmission is 147.3 cm. 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:Acute on chronic diastolic (congestive) heart failure:Hypokalemia:Pulmonar y edema:Tachypnea:S/P right hemicolectomy:Small bowel obstruction:NSTEMI (non-ST elevated myocardial infarction):UTI (urinary tract infection), bacterial:Anemia:Lactic acidosis:Leukocytosis, unspecified type:Hypotension (arterial):Pneumonia of right lower lobe due to infectious organism:Acute encephalopathy: Medical History:Gastrocutaneous fistula:Constipation:Ileus:E xploratory laparotomy:Anemia due to unknown or multiple mechanisms (disorder):Transient ischemic colitis (disorder):Protein malnutrition unspecified (disorder):Hypokalemia (disorder):Magnesium deficiency:Colitis (disorder):Small bowel obstruction (disorder):Acute bowel obstruction: Onset Date: 11-Feb-2012 Chronic:Fluid overload pulmonary edema:Clostridium difficile infection:Diarrhea: Other Dx/Proc:Gastrointestinal bleeding: Description: Gastrointestinal bleeding1 Colitis, 2 Abdomen Pain 3 Cholelithiasis: Onset Date: 58-Oda-2297Hzmto failure: Description: Heart failurePNEUMONIA:Diabetes mellitus: Description: Diabetes mellitusElectrolyte imbalance: Description: Electrolyte imbalancePost CABG: Description: Post CABGCoronary artery disease: Description: Coronary artery diseaseNon ST Elevation Myocardial Infarction (NSTEMI): Description: Non ST ElevationMyocardial Infarction (NSTEMI)Coronary angioplasty/stent (PCI): Description: Coronary angioplasty/stent(PCI)Dyspne a: Description: DyspneaCoronary atherosclerosis: Description: Coronary atherosclerosisHypotension:S epsis: Description: SepsisVenous thromboembolism: Description: Venous thromboembolism Medical History:Gastrocutaneous fistula:Constipation:Ileus:A nemia due to unknown or multiple mechanisms (disorder):Transient ischemic colitis (disorder):Protein malnutrition unspecified (disorder):Hypokalemia (disorder):Magnesium deficiency:Colitis (disorder):Small bowel obstruction (disorder):Acute bowel obstruction: Onset Date: 04-Hqs-2349Dahra bowel obstruction: Objective Information: T [id number]/619 8%Date/Time07/27 6: 6:5807/27 6:5807/27 6: 6:58Range(36.7C - 36.8C ) (62 - 71 ) (18 - 18 ) (129 - 140 )/ (61 - 67 ) (97%- 99% ) As of 26-Jul-2017 20:54:00, patient is on 2% oxygen via nasal cannula. Pain at Rest reported at 07/26 20:54: 0 Weights07/26 17:00: Weight in kg (Weight (kg)) 40.66 17:00: Weight in lbs ((lbs)) 89.76 17:00: BMI (kg/m2) (BMI (kg/m2)) 18.712 ---- Intake and Output -----Mn/Dy/Year TimeIntakeOutputNetLake [facility] 2017 2:00 [id number] 2017 10:00 [id number] The Intake and Output Totals for the last 24 hours are:EvepurDeivtmChi990hmzcsh Height/Weight:Height in feet: 5 feetHeight in inches: 2 inch(es)Height in cm: 157.4 centimeter(s)Weight in lbs: 89.5 pound(s)Weight (kg): 40.6BMI (kg/m2): 16.387 square meterDBW (kg): 57.3%DBW: 71Weight history/ % weight change: DBW-126 lbs for BMI 23 in adult >65 yearsWeight History:UBW: 50 to 50.1 kg (self reported)-current wt is 81% UBW)07/15/17: 44.8 kg (9.4% loss x 1.5 weeks-severe)07/10/17: 49 kg07/09/17: 47.8 kg07/06/17: 54.6 kg07/03/17: 53.8 kg01/02/17: 47.2 kg- No edema per flowsheet, ? weight gain from 12/26 vs fluidshifts in pt with history of malnutrition/ pulmonary edema / heart failureSignificant Weight Change: yes Recent Lab Results: Results:07/27/17:H/H 9.8/31.3 (L); MCHC 31.3 (L)- consistent with iron deficiency anemia, ptreceiving ferrous sulfateBUN/Cr 33/1.47 (H); GFR 34 (A)- consistent with AKICa 10.9 (H) Nutrition Labs:Special Chemistry: 03-Jul-2017 10:15, Hemoglobin S6BFeaxsmpzdt A1C, Level5.3 Diagnosis of Diabetes-Adults Non-Diabetic: < or = 5.6% Increased risk for developing diabetes: 5.7-6.4% Diagnostic of diabetes: > or = 6.5%. Monitoring of Diabetes Age (y) Therapeutic Goal (%) Adults: >18 <7.0 Pediatrics: 13-18 <7.5 7-12 <8.0 0- 6 7.5-8.5 [place] [employer]. Diabetes Care 33(S1), Feb 2009.Estimated Average Pfmlqvr832 Current Active Medications/PN:Bisacodyl Enteric Coated, Enteric Coated Tablet (DULCOLAX)DOSE = 5 mg Oral Once, PRN Constipation, 26-Dgl-5403Agveoidtq Hydroxide -Al Hydrox -Simethicone Oral Liquid, (MAALOX)DOSE = 30 mL Oral Every 6 Hours, PRN Dyspepsia, 06-Igw-1554Dpvknfxdbv, Tablet (PRINIVIL, ZESTRIL)DOSE = 10 mg Oral Daily, 04-Hit-5383mqvLJBtr, Tablet (ULTRAM)DOSE = 50 mg Oral Every 6 Hours, PRN Pain - Mod (4-6), 17-Vgf-8766Cbikjnudlcx, Tablet (PLAVIX)DOSE = 75 mg Oral Daily, 96-Jph-9290Uiizdkrrqu, Tablet (LASIX)DOSE = 20 mg Oral Daily, 51-Wst-2892Ywpydtxard, Capsule (NEURONTIN)DOSE = 300 mg Oral 3 Times a Day, 66-Kbd-7577Diyqewrgqr Mononitrate Extended Release, Tablet, Extended Release (IMDUR)DOSE = 60 mg Oral Daily, 94-Ioz-3191Snmkutgaqj Tartrate, Tablet (LOPRESSOR)DOSE = 50 mg Oral Every 12 Hours, 98-Hry-2857Vkpmygtemtb, Tablet (ZOCOR)DOSE = 40 mg Oral At Bedtime, 61-Bfm-3900Wisaxsrtet, Tablet (PEPCID)DOSE = 20 mg Oral At Bedtime, 06-Aga-5242Cxjlhgzdzm Oral Liquid, DOSE = 125 mg Oral Every 6 Hours, 23-Npn-8329Gopaapn Sulfate, Tablet (FEOSOL)DOSE = 325 mg Oral Daily, 24-Wmq-8199Cizfjltcx Chloride Extended Release, Tablet, Extended ReleaseDOSE = 10 mEq Oral Daily, 48-Idt-5182tlIDIMrze Extended Release (24 hour), Tablet, Extended Release (WELLBUTRINXL)DOSE = 150 mg Oral Every 24 Hours, 89-Dae-3691Hifhtgyisu, Tablet (ZOLOFT)DOSE = 150 mg Oral Daily, 00-Rjj-1873abLHOcgqyz, Tablet (ZANAFLEX)DOSE = 2 mg Oral Every 24 Hours, 49-Meb-3796Kuglxd Chloride 0.9% with Potassium CL 20 mEq Premix Fluid, IV Bag Volume =1,000 mL Run at: 100 mL/hr IntraVenous , 27-Jul-2017 Nutrition Orders:Diet, Regular, 99-Dna-8119Qst Participate in Room Service, YesOrder entered from Admission Screens., 48-Kff-1489Eqwt Nutritional Supplements, RoutineBoost PlusFlavor Preference: [place], 3 Times a DaySpecial Instructions: Please send Boost Plus Sycamore with each tray.Thank you!, 27-Jul-2017 Food/Nutrition Related History:Change in Oral Intake/Appetite: -will assess upon follow upGI Symptoms: anorexia, +BM x 1 today per pt.Time Frame for GI Symptoms Greater Than 2 Weeks: yesOral Problems: deniesMobility: bed/chair ridden Food Allergies Comment: shellfish, salmon Nutrition Focused Physical Findings:Muscle Wasting:Temporal: yesShoulder: yesClavicle: yesScapula/Back: deferBiceps/Triceps: yesInterosseous: yesQuadriceps: deferCalf: deferMuscle Comment: moderate to severe muscle loss Loss of Subcutaneous Fat:Eyes: yesPerioral: yesTriceps: yesChest: yesSubcutaneous Fat Comment: moderate to severe Other Physical Findings:Hair: negativeEyes: negativeMouth: negativeNails: negativeSkin: per flowsheet: incision midline abdominal closed with steristrips, opento airEdema: none, per flowsheetChange in Metabolic Demand: noSubjective Global Assessment Rating: severe malnutrition moderate to severemuscle and subcutaneous fat loss in multiple locations, 9.5% weight loss x 1.5weeks, pt reports poor appetite with variable intakeEtiology: acute illness or injury, chronic illness Estimated Needs:kcals/day: 1200 to 1400 kcal/day (30 to 35 kcal/kg actual weight)gms protein/day: 50 to 60 g/day (1.2 to 1.5 g/kg actual weight)mL fluid/day: per physician Nutrition Diagnosis:Diagnosis1 new. Dx: Severe protein calorie malnutrition. related to acute onchronic illness as evidenced by moderate to severe muscle and subcutaneous fatloss in multiple locations, 9.5% weight loss x 1.5 weeks, pt reports poorappetite with variable intake. Nutrition Interventions:Individualized Nutrition Prescription Provided for: diet, vitamins, mineralsDiet Education Provided: -Encouraged PO intake, encouraged pt to order favoritefoods-Encouraged pt to drink Boost Plus ONSCoordination of Care with: Pt discussed at IDT rounds Nutrition Goals:Goals: Nutrition Therapy: oral intake greater than 75%, consume prescribedsupplement, adequate po fluid intake, lab values within normal limits, gradualweight gainNutrition Goal Outcomes: -will assess upon follow up Outcomes Summary: Nutrition TherapyOutcome Summary: Nutritional Therapy: -Severe protein calorie malnutrition NUTRITION RECOMMENDATIONS:Recommendati ons:1. Continue regular diet2. Continue Boost Plus TID (1080 kcal/42 g protein)3. Consider appetite stimulant4. MVI with minerals5. Check weight daily6. Re-check height Nutrition Therapy Recommendations:Nutrition Therapy Recommendations: 1. Continue regular diet2. Continue Boost Plus TID (1080 kcal/42 g protein)3. Consider appetite stimulant4. MVI with minerals5. Check weight daily, 6. Re-check height Dietitian Monitoring and Evaluation Plan:Monitoring and Evaluation Plan: po intake and tolerance, fluid intake/adequacy,vitamin/mine ral intake, weight trend, stool output, overall appearance,mealtime behavior, labsOther Plan: Evaluate nutrition intervention as compared to nutrition goal(s)and estimated nutrient need criteria. Diet Education:Nutrition Education: -Encouraged PO intake, encouraged pt to order favoritefoods-Encouraged pt to drink Boost Plus ONSEducation Provided to: patientUnderstanding of Diet: fair, needs reinforcementAnticipated Compliance: fair Electronic Signatures:Silvia Tyler (DEEPA HENRIQUEZ) (Signed 27-Jul-2017 15:15)Authored: Assessment Subjective/Objective, Nutrition Focused PhysicalFindings, Estimated Needs, Nutrition Diagnosis, Nutrition Interventions,Nutrition Goals, Nutrition Recommendations, Dietitian Monitoring and EvaluationPlan, Diet Education Last Updated: 27-Jul-2017 15:15 by Silvia Tyler ([place], DEEPA) Normal [facility] PARATHYROID HORMONE,INTACTon 07-27-2017 PARATHYROID HORMONE,INTACT < 6.3 Low 18.5 - 88.0 [facility] Comment on above: Result Comment: Viv ents receiving more than 5 mg/day of biotin may have interference in test results. A sample should be taken no sooner than eight hours after previous dose. Contact [phone] for additional information. Performed By: #### L IPID ####[facility] [place] [address] Admission Risk Screen - Adul ton 07-26-2017 Admission Risk Screen - Adult Allergies: Allergies:? Lincocin: Rash? penicillin: Rash? tetracycline: Rash? erythromycin: Rash? Keflex: Syncope? Lunesta: Unknown? penicillin G benzathine: Unknown? Biaxin: Unknown? trazodone: Unknown? Clindamycin Hydrochloride: Unknown? aspirin: GI Bleeding? Vioxx: Bleeding? NSAIDs: GI Bleeding? Mold/Fungi: Unknown? Pollen: Unknown Intolerances:? Ativan: Confusion? Restoril: Confusion Patient Verification:? New W ID Band Applied in my Departmentyes? Patient Identity Verified Bypatient? ID Band FULL Name, include Middle, spelling matches patient's ID used forverificationyes? ID Band Matches Patient ID used for Verficationyes? ID Band MRN Matches EMR MRNyes Advance Directive:? Advance Directive Medicalyes? Advance Directive typeLiving Will, Durable Power of Sap Bw Consultant for Healthcare? Living Will AvailabilityLiving Will not available now? Living Will [id number]? Durable Power of Sap Bw Consultant AvailabilityDPOA not available now? Durable Power of Sap Bw Consultant [id number]? Durable Power of Sap Bw Consultant contact (name and number)Dannie Judge- [phone]? Advance Directive Mental Healthnot applicable Falls Screen:Type of AssessmentadmissionModerate Risk Factorsaltered elimination, patient care equipment (scds, iv?s,chest tubes, soto, etc)High Risk Factorsgait instabilityRisk for Injury Associated with FallnoneFall Risk Conclusionhigh falls risk with low risk for associated injuryUniversal Safety InterventionsWDL *orient to call system *instruct to call forassistance before getting out of bed *non-slip footwear when patient is out ofbed *call hoffman in reach *personal items and telephone in reach *physically safeenvironment (no spills or clutter) *bed in lowest position with wheels locked*appropriate side rails in place *room/bathroom lighting operational, lightcord in reach *appropriate signage on doorFall and Injury Risk Interventionssupervised toileting (mandatory for all highrisk patients), exit (bed/chair) alarms (mandatory for all high risk patients),collaborate with team for PT/OT consult/ambulatory aids, educate pt/family,educate patient/family for risk for injury (fractures and bleeding) Family Violence Screen:? Are you or have you been threatened or abused physically, emotionally, orsexually by anyone?no? Do you feel UNSAFE going back to the place where you are living?no? Clinical assessment: Are there any apparent signs of injuries/behaviors thatcould be related to abuse/neglectno? Social Service Consult for abuse/neglect needed this visit?no Functional screen:? Functional Screen: In the recent/past 2-4 weeks, patient or family havenoticednew difficulty in safely performing activities of daily living, asignificant change in function affecting balance, or the ability to safelytransfer or ambulate (And is not on bedrest) Learning Assessment (Patient):? Patient is Able to be Assessed for Learningyes? Factors Influencing Readiness to Learnfatigue; interest in learning;motivation to learn? Factors that Impact Ability to Learnnone? Devices/Methods Used to Communicatenone? Learning Preferenceswritten material; verbal instruction? Cultural Considerationsnone? Developmental Considerationsnone? Restoration Considerationsnone Learning Assessment (Other Learner):? Other learner availableno Suicide/Depression Screen:? During the past month, have you often been bothered by feeling down,depressed or hopeless?no? During the past month, have you often had little interest or pleasure indoing things?no? Have you had any thoughts of harming yourself?no (1)? Have you had any thoughts of harming anyone else?no (1) Adult Nutrition Screen:? Have you recently lost weight without tryingyes; 2-13 lb? Have you been eating poorly because of a decreased appetiteyes? MST Score2? RiskMST = 2 or more At Risk. Eating poorly and/or recent weight loss? Nutrition Consult needed this visit?yes? Can Patient Participate in Room Service?yes? Patient requires Paper Dishes/Plastic Utensilsno Pain Screen:? Pain Scalenumerical 0-10? Pain Scale Educationteaching provided? Current Pain Level5 = Moderate? Acceptable Pain Level3 = Mild? Expression of Pain (nonverbal)verbalization? Chronic Painyes? Chronic Back pain locationlower, back Spiritual Screen:? Are there any cultural, spiritual, scientology practices/values/needs that areimportant for us to know?no CAGE:Is this an injured patient at a Trauma Center ([facility] / [place]): no Vaccinations:Vaccination - Influenza Vaccination Screen:? Is it flu season? (between and )No Vaccination - Pneumonia Vaccination Screen:? Patient has received a previous pneumonia vaccine:yes Moustapha:Skin - Moustapha Scale: ? Moustapha: Sensory Perception (response to environment)(4) no impairment? Moustapha: Moisture (degree skin exposed to moisture)(3) occasionally moist? Moustapha: Activity (ability to walk)(3) walks occasionally? Moustapha: Mobility (amount/control of body movement)(3) slightly limited? Moustapha: Nutrition (quality of food intake)(2) probably inadequate? Moustapha: Friction and Shear(2) potential problem? Moustapha: Score17 ? Skin Intervention Orders (Nursing orders will be generated)elevate heels, upin chair < 1 hr intervals, turn side to side every 2 hrs, assess fortherapeutic equipment, assess pressure points, hygiene care, toilet/ADL every 2hrs awake, toilet/ADL every 4 hrs asleep, educate prevent/treat pressure ulcer Significant Indicatiors:Significant Indicators: Complete Pressure Injury:Pressure Injury Present on Admissionno Electronic Signatures:Layne Dunbar (RN) (Signed 26-Jul-2017 17:13)Authored: Admission Risk Screens, Vaccinations, Moustapha, Pressure Injury Last Updated: 26-Jul-2017 17:13 by Layne Dunbar (CINTHYA) References:1. Data Referenced From Triage - ED 07/26/2017 2:05 PM Normal [facility] BLOOD CULTURE, BACTERIALon 0 07-26-2017 BLOOD CULTURE, BACTERIAL PATIENT: KATHERINE JUDGE LOCATION: [address]#: [id number] : [birth year] AGE: SEX: F ORDERED BY: TOMMY MENDEZ: Blood COLLECTED: 07/26/17 14:35ANTIBIOTICS AT ESDRAS.: RECEIVED : 07/27/17 09:48SITE: ANTECUBITAL R E S U L T S BLOOD CULTURE, BACTERIAL FINAL 08/01/17 11:42 No Growth at 1 days No Growth at 2 days No Growth at 3 days No Growth at 4 days NO GROWTH - FINAL REPORT Normal [facility] Comment on above: Performed By: #### L IPID ####[id number] [place] [address] BLOOD CULTURE, BACTERIAL PATIENT: KATHERINE JUDGE LOCATION: [address]#: [id number] : [birth year] AGE: SEX: F ORDERED BY: TOMMY MENDEZ: Blood COLLECTED: 07/26/17 14:34ANTIBIOTICS AT ESDRAS.: RECEIVED : 07/27/17 09:58SITE: ANTECUBITAL R E S U L T S BLOOD CULTURE, BACTERIAL FINAL 08/01/17 11:42 No Growth at 1 days No Growth at 2 days No Growth at 3 days No Growth at 4 days NO GROWTH - FINAL REPORT Normal [facility] Comment on above: Performed By: #### L IPID ####[id number] [place] [address] BNPon 07-26-2017 Natriuretic peptide B mass conc (Bld) 67 pg/mL Normal 0 - 99 [facility] Comment on above: Result Comment: . <1 00 pg/mL - Heart failure kqkmusna238-670 pg/mL - Intermediate probability of acute heart. failure exacerbation. Correlate with clinical. context and patient history. >=300 pg/mL - Heart Failure likely. Correlate with clinical. context and patient history.BNP testing is performed using different testingmethodology [facility]. Direct result comparisons shouldonly be made within the same method. Performed By: #### L IPID ####[address] [address] CBC AND DIFFERENTIALon 07-26 % AUTOMATED IMMATURE GRAN 0.5 % Normal 0.0 - 0.9 [facility] Comment on above: Result Comment: Perc ent differential counts (%) should be interpreted in the context of the absolute cell counts (cells/L). Performed By: #### L IPID ####[address] [address] % NEUTROPHIL 86.5 % Normal 40.0 - 80.0 [facility] Comment on above: Performed By: #### L IPID ####[address] [address] Basophils/100 WBC Auto (Bld) 0.02 x10E9/L Normal 0.00 - 0.10 [facility] Comment on above: Performed By: #### L IPID ####[address] [address] Basophils/100 WBC Auto (Bld) 0.2 % Normal 0.0 - 2.0 [facility] Comment on above: Performed By: #### L IPID ####[address] [address] Eosinophils Auto #/vol (Bld) 0.02 10*3/uL Normal 0.00 - 0.40 [facility] Comment on above: Performed By: #### L IPID ####[address] [address] Eosinophils/100 WBC Auto (Bld) 0.2 % Normal 0.0 - 6.0 [facility] Comment on above: Performed By: #### L IPID ####[address] [address] Lymphocytes Auto #/vol (Bld) 1.11 10*3/uL Normal 0.80 - 3.00 [facility] Comment on above: Performed By: #### L IPID ####[address] [address] Lymphocytes/100 WBC Auto (Bld) 10.6 % Normal 13.0 - 44.0 [facility] Comment on above: Performed By: #### L IPID ####[address] [address] Monocytes Auto #/vol (Bld) 0.21 10*3/uL Normal 0.05 - 0.80 [facility] Comment on above: Performed By: #### L IPID ####[address] [address] Monocytes/100 WBC Auto (Bld) 2.0 % Normal 2.0 - 10.0 [facility] Comment on above: Performed By: #### L IPID ####[address] [address] Neutrophils Auto #/vol (Bld) 9.11 10*3/uL High 1.60 - 5.50 [facility] Comment on above: Performed By: #### L IPID ####[address] [address] Erythrocyte distribution width Auto Ratio (RBC) 13.3 % Normal 11.5 - 14.5 [facility] Comment on above: Performed By: #### L IPID ####[address] [address] Hematocrit Auto Volume Fraction (Bld) 34.2 % Low 36.0 - 46.0 [facility] Comment on above: Performed By: #### L IPID ####[address] [address] Hemoglobin mass conc (Bld) 11.0 g/dL Low 12.0 - 16.0 [facility] Comment on above: Performed By: #### L IPID ####[address] [address] MCHC Auto mass conc (RBC) 32.2 g/dL Normal 32.0 - 36.0 [facility] Comment on above: Performed By: #### L IPID ####[facility] [place] [address] MCV Auto Entitic volume (RBC) 103 fL High 80 - 100 [facility] Comment on above: Performed By: #### L IPID ####[facility] [place] [address] Platelets Auto #/vol (Bld) 317 10*3/uL Normal 150 - 450 [facility] Comment on above: Performed By: #### L IPID ####[facility] [place] [address] RBC Auto #/vol (Bld) 3.33 x10E12/L Low 4.00 - 5.20 [facility] Comment on above: Performed By: #### L IPID ####[address] [place] [address] WBC Auto #/vol (Bld) 10.5 10*3/uL Normal 4.4 - 11.3 [facility] Comment on above: Performed By: #### L IPID ####[id number] [place] [address] CHEST 1 VIEWon 07-26-2017 CHEST 1 VIEW Name: KATHERINE JUDGE STUDY:CHEST 1 VIEW; 07/26/2017 2:30 pm INDICATION:Signs/Symptoms: cp. COMPARISON:Chest x-ray 07/07/2017 ORDERING CLINICIAN:JUAN ANTONIO MENDEZ FINDINGS:The patient is significantly rotated limiting evaluation. Previousright pleural effusion is mostly resolved. No definite newinfiltrate. No definite pleural effusion. Possible cardiomegaly. Nocongestive failure parent. Aortic atherosclerosis.There are mildly displaced fractures of the 8th and 9th ribs.Posttraumatic deformity of the proximal right humerus. IMPRESSION:Mildly displaced fractures of the right 8th and 9th ribs. Otherwiseno definite active disease in the chest identified. Electronically signed by: KAVON MANNING MD Normal [facility] COMPREHENSIVE PANELon 2017 Albumin mass conc 3.0 g/dL Low 3.4 - 5.0 [facility] Comment on above: Order Comment: Dr Perry parra notified, 07/26/2017 15:10 Performed By: #### L IPID ####[id number] [place] [address] ALP enzyme act/vol 65 U/L Normal 33 - 136 [facility] Comment on above: Order Comment: Dr Perry parra notified, 07/26/2017 15:10 Performed By: #### L IPID ####[address] [place] [address] ALT enzyme act/vol 24 U/L Normal 7 - 45 [facility] Comment on above: Order Comment: Dr Perry parra notified, 07/26/2017 15:10 Result Comment: Viv ents treated with Sulfasalazine may generate falsely decreased results for ALT. Performed By: #### L IPID ####[address] [place] [address] Anion gap 3 molar conc 13 mmol/L Normal 10 - 20 [facility] Comment on above: Order Comment: Dr Perry parra notified, 07/26/2017 15:10 Performed By: #### L IPID ####[address] [place] [address] AST enzyme act/vol 22 U/L Normal 9 - 39 [facility] Comment on above: Order Comment: Dr Perry parra notified, 07/26/2017 15:10 Performed By: #### L IPID ####[address] [place] [address] Bilirubin mass conc 0.4 mg/dL Normal 0.0 - 1.2 [facility] Comment on above: Order Comment: Dr Perry parra notified, 07/26/2017 15:10 Performed By: #### L IPID ####[address] [place] [address] Calcium mass conc 13.2 mg/dL Critically high 8.6 - 10.3 [facility] Comment on above: Order Comment: Dr Perry parra notified, 07/26/2017 15:10 Result Comment: Dr Henrique oneal notified, 07/26/2017 15:10 Performed By: #### L IPID ####[address] [place] [address] Chloride molar conc 98 mmol/L Normal 98 - 107 [facility] Comment on above: Order Comment: Dr Perry parra notified, 07/26/2017 15:10 Performed By: #### L IPID ####[address] [place] [address] Creatinine mass conc 1.94 mg/dL High 0.50 - 1.05 [facility] Comment on above: Order Comment: Dr Perry parra notified, 07/26/2017 15:10 Performed By: #### L IPID ####[address] [place] [address] GFR- AM. 30 mL/min/1.73m2 Abnormal >60 [facility] Comment on above: Order Comment: Dr Perry parra notified, 07/26/2017 15:10 Result Comment: CALC ULATIONS OF ESTIMATED GFR ARE PERFORMED USING THE MDRD STUDY EQUATION FOR THE IDMS-TRACEABLE CREATININE METHODS. CLIN CHEM 2007;53:766-72 Performed By: #### L IPID ####[address] [place] [address] GFR-NON AM. 25 mL/min/1.73m2 Abnormal >60 [facility] Comment on above: Order Comment: Dr Perry parra notified, 07/26/2017 15:10 Performed By: #### L IPID ####[address] [place] [address] Glucose mass conc 111 mg/dL High 74 - 99 [facility] Comment on above: Order Comment: Dr Perry parra notified, 07/26/2017 15:10 Performed By: #### L IPID ####[address] [place] [address] HCO3 molar conc (Bld) 30 mmol/L Normal 21 - 32 [facility] Comment on above: Order Comment: Dr Perry parra notified, 07/26/2017 15:10 Performed By: #### L IPID ####[facility] [place] [address] Potassium molar conc 4.8 mmol/L Normal 3.5 - 5.3 [facility] Comment on above: Order Comment: Dr Perry parra notified, 07/26/2017 15:10 Performed By: #### L IPID ####[facility] [place] [address] Protein mass conc 6.6 g/dL Normal 6.4 - 8.2 [facility] Comment on above: Order Comment: Dr Perry parra notified, 07/26/2017 15:10 Performed By: #### L IPID ####[address] [place] [address] Sodium molar conc 136 mmol/L Normal 136 - 145 [facility] Comment on above: Order Comment: Dr Perry parra notified, 07/26/2017 15:10 Performed By: #### L IPID ####[address] [place] [address] Urea nitrogen mass conc 43 mg/dL High 6 - 23 [facility] Comment on above: Order Comment: Dr Perry parra notified, 07/26/2017 15:10 Performed By: #### L IPID ####[address] [place] [address] CT HEAD WO CONTRASTon 2017 CT HEAD WO CONTRAST Name: KATHERINE JUDGE STUDY:CT HEAD WO CONTRAST; 07/26/2017 3:40 pm INDICATION:Signs/Symptoms: increased confusion. COMPARISON:CT Brain, 06 Jul 2017 ORDERING CLINICIAN:JUAN ANTONIO MENDEZ TECHNIQUE:CT of the brain from the skull vertex to the skull base, withoutintravenous contrast. FINDINGS:Acute intracranial hemorrhage: NegativeAcute subdural hematoma: Negative Acute intracranial mass effect: Negative CT evidence of acute / subacute territorial ischemia: Negative Ventricles: Enlarged but in proportion to the degree of globalcerebral atrophy Other brain findings: No significant interval change to the CTappearance of the brain including the degree of atrophy and deepwhite matter changes from chronic microvascular disease Included paranasal sinuses: All clearIncluded mastoid air cells: All clear Skull: No lytic or blastic lesion Extracranial soft tissues: Scalp and occular globes grossly normal byCT IMPRESSION:NO ACUTE INTRACRANIAL PROCESSElectronically signed by: ALTAGRACIA MELO MD Normal [facility] EMR ADDONon 07-26-2017 ADDON CONFIRMATION REQUEST REC'D Normal [facility] Comment on above: Performed By: #### L IPID ####[id number] [place] [address] LACTATEon 07-26-2017 Lactate molar conc 1.1 mmol/L Normal 0.4 - 2.0 [facility] Comment on above: Result Comment: Hali puncture immediately after or during the administration of Metamizole may lead to falsely low results. Testing should be performed immediately prior to Metamizole dosing. Performed By: #### L IPID ####[address] [place] [address] LIPASEon 07-26-2017 Lipase enzyme act/vol 57 U/L Normal 9 - 82 [facility] Comment on above: Result Comment: Hali puncture immediately after or during the administration of Metamizole may lead to falsely low results. Testing should be performed immediately prior to Metamizole dosing. Performed By: #### L IPID ####[address] [place] [address] PT/INRon 07-26-2017 INR Coag RelTime (PPP) 1.2 {INR} High 0.9 - 1.1 [facility] Comment on above: Performed By: #### L IPID ####[address] [place] [address] Prothrombin time (PT) Coag time (PPP) 13.3 s High 9.8 - 12.7 [facility] Comment on above: Performed By: #### L IPID ####[id number] [place] [address] Patient Profile - Adult v2on 07-26-2017 Protein mass conc Profile:Initial Info :How to be AddressedAliceSpoken Language PreferredEnglish (1)Are you currently using the Personal Electronic Health Record or [facility] CENTERCAREnoStated Reason for AdmissionI wasn't respondingArrived Fromemergency departmentPatient Belongingsremains with patientPatient Belongings Remaining with Patientclothing; dental applianceMedications Brought to Hospitalno General Health:Weight in kg40.6 kilogram(s)Weight in lbs89.7 pound(s)Height in feet4 feetHeight in wtwalu86 inch(es)Height in cm147.3 centimeter(s)BMI (kg/m2)18.712 square meterWeight Methodactual (measured)Scale TypebedHeight Methodestimated [facility] Based Care:How would you like to participate in your care?update on daily plan of careWhat is the number one concern for you during this hospitalization?paincontrolW hat is the most important thing we can do to support you during thishospitalization?pain control and het me better to get homeIs there anything we need to know to best care for you?none Substance:Current or Former Substance Use never: Cigarette/Tobacco(2),e-Cigar ette/Vaping, Alcohol(2), Street Drugs(2) Health Mgmt:Symptoms/Conditions Managed at Homecardiovascular; chronic pain; respiratoryCardiovascular Symptoms/Conditionsheart failure; hypertensionCardiovascular Management Strategiesmedication therapyCardiovascular ManagementmanagedChronic Pain Aggravating FactorsactivityChronic Pain Relieving FactorsmedicationChronic Pain Management StrategiesactivityChronic Pain ManagementmanagedRespiratory Management Strategiesoxygen therapyOxygen Therapy Timesnight time onlyOxygen Flow (L/min)2Oxygen DeviceNCRespiratory Managementmanaged Relationship/Environ:Primary Source of Support/ComfortspouseLives WithspouseLiving Arrangementsnursing homeResource/Environmental ConcernsnoneAnticipated Transition Toinpatient rehabilitation facility; long term care pharmacist carefacilityServices Anticipated at 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 Allergies, Home Meds and Significant Events have been Reviewed and Verifiedwith Patient/Familyyes ALLERGY, INTOLERANCE, ADVERSE EVENT: Allergies:? Lincocin: Drug, Rash, Active? penicillin: Drug, Rash, Active? tetracycline: Drug, Rash, Active? erythromycin: Drug, Rash, Active? Keflex: Drug, Syncope, Active? Lunesta: Drug, Unknown, Active? penicillin G benzathine: Drug, Unknown, Active? Biaxin: Drug, Unknown, Active? trazodone: Drug, Unknown, Active? Clindamycin Hydrochloride: Drug, Unknown, Active? aspirin: Drug, GI Bleeding, Active? Vioxx: Drug, Bleeding, Active? NSAIDs: Drug Category, GI Bleeding, Active? Mold/Fungi: Environment, Unknown, Active? Pollen: Environment, Unknown, Active Intolerances:? Ativan: Drug, Confusion, Active? Restoril: Drug, Confusion, Active Electronic Signatures:Layne Dunbar) (Signed 26-Jul-2017 17:07)Authored: Profile, Additional Information Last Updated: 26-Jul-2017 17:07 by Layne Dunbar ([email or web address]) References:1. Data Referenced From Triage - ED 07/26/2017 2:05 PM2. Data Referenced From Patient Profile - Adult v2 07/09/2017 10:08 AM Normal [facility] Provider Note - EDon 018 Protein mass conc Time Seen:? Time Ssyo36-Jlw-8663 13:49 Triage Vital Signs:? Triage Information Most recent Vital Sign Value Date Temp (F): 98.4 07-26-2017 14:05 Temp (C): 36.8 07-26-2017 14:05 Heart Rate (beats/min): 62 07-26-2017 14:05 Respirations (breaths/min): 18 07-26-2017 14:05 SpO2 (%): 98 07-26-2017 14:05 BP Systolic (mm Hg): 101 07-26-2017 14:05 BP Diastolic (mm Hg): 57 07-26-2017 14:05 History of Present Illness:This 82 year old Female presents with complaint(s) of altered mental status(1) Allergy, Intolerance, Adverse Event: Allergies:? Lincocin: Drug, Rash, Active? penicillin: Drug, Rash, Active? tetracycline: Drug, Rash, Active? erythromycin: Drug, Rash, Active? Keflex: Drug, Syncope, Active? Lunesta: Drug, Unknown, Active? penicillin G benzathine: Drug, Unknown, Active? Biaxin: Drug, Unknown, Active? trazodone: Drug, Unknown, Active? Clindamycin Hydrochloride: Drug, Unknown, Active? aspirin: Drug, GI Bleeding, Active? Vioxx: Drug, Bleeding, Active? NSAIDs: Drug Category, GI Bleeding, Active? Mold/Fungi: Environment, Unknown, Active? Pollen: Environment, Unknown, Active Intolerances:? Ativan: Drug, Confusion, Active? Restoril: Drug, Confusion, Active Outpatient Medication, Review/Add Medications:* Patient Currently Takes Medications as of 17-Jul-2017 10:18 documented inStructured Notes HISTORY ATTESTATION:? AttestationI have reviewed and confirmed nurse's/medic's notes for patient'smedications, allergies, medical history, and surgical history Vital Signs:? Objective Information T PRBP SpO2O2(LPM) %FiO2 Wyimpj62-Fqx-2045 14:05:00-36.59242148/57 98 supplemental O2 Lab Results:? Results I have reviewed these laboratory results: Brain Natriuretic Peptide [Vphys74-Dvf-4025 15:10:00], Urinalysis [Drawn 26-Jul-2017 15:06:00], Urinalysis,Microscopic [Drawn 26-Jul-2017 15:06:00], Comprehensive Metabolic Panel [Uhuxu34-Ieg-6839 14:34:00], Complete Blood Count + Differential [Drawn 40-Yzk-861289:34:00], PT + INR, Plasma [Drawn 26-Jul-2017 14:34:00], RBC Morphology [Izhft73-Odt-9844 14:34:00], Lipase, Serum [Drawn 26-Jul-2017 14:34:00], Lactate,Level [Drawn 26-Jul-2017 14:34:00], Troponin I, Serum [Drawn 45-[id number]:34:00].Brain Natriuretic Juxuhha41-Drh-1659 15:10:00 ResultValueReference RangeBrain Natriuretic Wlbdgyd289 - 99 pg/mL Ceuzthbyle29-Ngc-4137 15:06:00 ResultValueReference RangeColor, UrineYELLOW Reference Range: STRAW,YELLOWAppearance, UrineHAZYCLEARSpecific Max, Urine1.0091.005 - 1.035pH, Urine6.05.0 - 8.0Protein, UrineNEGATIVENEGATIVE mg/dLGlucose, UrineNEGATIVENEGATIVE mg/dLBlood, UrineSMALL(1+) ANEGATIVEKetones, UrineNEGATIVENEGATIVE mg/dLBilirubin, UrineNEGATIVENEGATIVEUrobili nogen, Urine<2.00.0 - 1.9 mg/dLNitrite, UrineNEGATIVENEGATIVELeukocy te Esterase, UrineMODERATE(2+) ANEGATIVE Urinalysis, Zxabwsrqdbp15-Igb-1184 15:06:00 ResultValueReference RangeWhite Cells8 A0 - 5 /HPFRed Blood Cells2 A0 - 5 /HPFEpithelial Cells, Tdiqvjdo6Osftdbwxyx Cells, Transitional<1Bacteria, Urine4+ AMucousFEWHyaline Casts3+ AAmorphous Crystals1+ Comprehensive Metabolic Sbgjj76-Vwg-0306 14:34:00 ResultValueReference RangeLab Comment:Dr Vance notified, 07/26/2017 15:10Glucose, Yidqz042 H74 - 99 mg/iBWP322924 - 145 mmol/LK4.83.5 - 5.3 mmol/EZU1005 - 107 mmol/LBicarbonate, Bfzkd4143 - 32 mmol/LAnion Gap, Atyhe9303 - 20 mmol/LBUN43 H6 - 23 mg/dLCREAT1.94 H0.50 - 1.05 mg/dLGFR-Non Xpvspqvo84 A>60 mL/min/1.03n7AFZ-Fypxpvt Nmiohgvl66 A>60 mL/min/1.25y0Pdgbapl, Serum13.2 HH8.6 - 10.3 mg/dLALB3.0 L3.4 - 5.0 g/oKOQXP0861 - 136 U/LT Pro6.66.4 - 8.2 g/Rashi Bili0.40.0 - 1.2 mg/dLAlanine Aminotransferase, Alqhu660 - 45 U/LAspartate Transaminase, Nbvji317 - 39 U/L Complete Blood Count + Xfplbziwjups20-Tpc-5885 14:34:00 ResultValueReference RangeWhite Blood Cell Count10.54.4 - 11.3 x10E9/LRed Blood Cell Count3.33 L4.00 - 5.20 x10E12/LHGB11.0 L12.0 - 16.0 g/dLHCT34.2 L36.0 - 46.0 %HLL239 H80 - 100 zYRZSQ98.232.0 - 36.0 g/dHJFP713146 - 450 x10E9/LRDW-CV13.311.5 - 14.5 %Neutrophil %86.540.0 - 80.0 %Immature Granulocytes %0.50.0 - 0.9 %Lymphocyte %10.613.0 - 44.0 %Monocyte %2.02.0 - 10.0 %Eosinophil %0.20.0 - 6.0 %Basophil %0.20.0 - 2.0 %Neutrophil Count9.11 H1.60 - 5.50 x10E9/LLymphocyte Count1.110.80 - 3.00 x10E9/LMonocyte Count0.210.05 - 0.80 x10E9/LEosinophil Count0.020.00 - 0.40 x10E9/LBasophil Count0.020.00 - 0.10 x10E9/L PT + INR, Mjjpks28-Fic-8339 14:34:00 ResultValueReference RangeProthrombin Time, Cufkem80.3 H9.8 - 12.7 secInternational Normalized Ratio, Plasma1.2 H0.9 - 1.1 RBC Ejrwtspdxo21-Cwx-5826 14:34:00 ResultValueReference RangeRed Blood Cell MorphologySEE COMMENT NO SIGNIFICANT RBC ABNORMALITIES SEEN ONSMEAR REVIEW. Lipase, Ylxww96-Tpx-6216 14:34:00 ResultValueReference RangeLipase, Wrflj309 - 82 U/L Lactate, Eujwa24-Uvp-0024 14:34:00 ResultValueReference RangeLactate, Level1.10.4 - 2.0 mmol/L Troponin I, Jnzmn76-Ocq-7904 14:34:00 ResultValueReference RangeTroponin I, Serum0.030.00 - 0.03 ng/mL Diagnostic Imaging Results Review: Radiology Results:? Results Impression: NO ACUTE INTRACRANIAL PROCESS CT Head without Contrast [Jul 26 2017 3:46PM] Impression: Mildly displaced fractures of the right 8th and 9th ribs. Otherwiseno definite active disease in the chest identified. Xray Chest 1 View [Jul 26 2017 3:26PM] EKG Results:? EKG Date/Mcbe92-Zfg-0345 13:53? Rate59? CommentsSinus bradycardia with a right bundle shun block. There is T-waveinversions in the anterioseptal leads. T-wave inversion is new in lead III andaVF. Compared to previous from June 2017. PROGRESS NOTE: ? ED Course:Please not that this chart was dictated with voice commands and proof readingwas done however there may be discrepancies, please contact with questions orconcerns. 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 difficile treated with PO vancomycin earlier fewweeks prior presenting from a fdc facility at the recommendation ofher primary care physician for further evaluation of increased confusion. Thepatient is recently being treated for a urinary tract infection and wasconcerned patient may be developing systemic infection given altered mentation.The patient herself the poor history and alert and oriented to person only.Does states she accidentally upset chest pain earlier today currently deniesany symptoms according chest pain, shortness breath, cough or fevers. Shedenies any abdominal pain, nausea, vomiting or change in bowel habits.Family HX: Denies any significant/pertinent family history.Social Hx: Denies ETOH or drug use.Review of Systems:Gen.: No weight loss, fatigue, anorexia, chills, fever.Eyes: No vision loss, double vision, drainage, eye pain.ENT: No pharyngitis, dry mouth, hoarseness. No nasal congestion or discharge.Cardiac: No chest pain, palpitations, orthopnea, syncope, near syncope.Pulmonary: No shortness of breath, cough, hemoptysis.Heme/lymph: No swollen glands, fever, bleeding, easy bruising.GI: No abdominal pain, change in bowel habits, melena, hematemesis,hematochezia, nausea, vomiting, diarrhea.: No discharge, dysuria, frequency, urgency, hematuria.Musculoskeletal: No limb pain, joint pain, joint swelling.Skin: No rashes.Review of systems is otherwise negative unless stated above or in history ofpresent illness.Physical Exam:General: Vitals noted, afebrile. NAD. Frail elderly femaleHEENT: Head is normocephalic, atraumatic. Eyes are noninjected, anicteric,PERRLA, EOMI. Throat: Posterior oropharynx unremarkable without erythema orexudates, uvula is midline.Neck: Supple. No meningismus.Cardiac: Regular, rate, rhythm, no audible murmur appreciated. 2+ pulsesthroughout and brisk capillary refill present.Pulmonary: Lungs clear bilaterally with good aeration. No adventitious breathsounds. No accessory muscle use.Abdomen: Soft, nondistended, nontender to palpation. No peritoneal signs.Normoactive bowel sounds.Genitourinary: No CVA tenderness.Extremities: No peripheral edema. Negative Homans bilaterally, no cords.Neurovascularly intact throughout. No cyanosis or clubbing. MOURA X4.Skin: Warm, dry intact. No evidence of trauma or lesions.Neuro: No focal neurologic deficits. Normal mood and affect. Alert and orientedX1.Medical Decision-Making:Summary: Patient arrived with stable vital signs. CBC is unremarkable. CMP withacute kidney injury and hypercalcemia, patient received 2 L normal saline bolusin the emergency department. Urinalysis with a mom of leukocyte esterase, fewwhite cells as well as a few red blood cells, urine culture currently pending.Blood cultures pending. Lactate within normal limits. Troponin negative and EKGwithout acute ischemic changes. CT imaging of the brain was without acutefindings. Chest x-ray revealed fractured eighth and ninth ribs, family andpatient deny any recent fall or trauma. Patient will be admitted for furtherevaluation and consult general surgeryPatients HPI, PE, ED course and plan of care staffed and discussed withattending physician.Plan: Admit observation for continued IV fluids and reassessment of renalstatus as well as increased confusion and further evaluation. Tract infection.Disposition:Observ ation Diagnoses/Visit Problems:? Encephalopathy:? UTI (urinary tract infection):? Acute kidney injury: DISCHARGE DISPOSITION:? Disposition: hospitalized? Disposition: Observation? Admit Considerations: fall/safety concern CONDITION ON DISPO:? Condition on Dispositionstable MEDICATION RECONCILIATION/DISCHARGE MEDS:* Outpatient Medication Status not yet specified Attestation:CRITICAL CARE:? Is This a Critically Ill Patientno Co-Sign/Attestation:Attestat ion: This is a shared visit. I have reviewed the LIP?s encounter note,approve the LIP?s documentation and provide the following additionalinformation from my personal encounter.Shared Visit Documentation: See comments/additional findings belowComments/ Additional Findings:Patient was seen and treated under my supervision agreed with the treatmentplan and disposition. Electronic Signatures:Juan Antonio Mendez (PAC) (Signed 26-Jul-2017 16:05)Authored: Time Seen / ED Notes, Triage Vital Signs, History of PresentIllness, Patient History, History Attestation, Vital Signs, Lab Results Review,Diagnostic Imaging Results Review, EKG Result/Interpretation, Progress Note, EDDisposition (REQUIRED), AttestationMaria A Vance) (Signed 30-Jul-2017 05:36)Authored: AttestationCo-Signer: Time Seen / ED Notes, Triage Vital Signs, History of PresentIllness, Patient History, History Attestation, Vital Signs, Lab Results Review,Diagnostic Imaging Results Review, EKG Result/Interpretation, Progress Note, EDDisposition (REQUIRED), Attestation Last Updated: 30-Jul-2017 05:36 by Maria A Vance) References:1. Data Referenced From Triage - ED 07/26/2017 2:05 PM Normal [facility] RED CELL MORPHOLOGYon 2017 RBC morphology finding Nom (Bld) SEE COMMENT Normal [facility] Comment on above: Result Comment: NO S IGNIFICANT RBC ABNORMALITIES SEEN ONSMEAR REVIEW. Performed By: #### L IPID ####[id number] [place] [address] TROPONIN Ion 07-26-2017 Troponin I.cardiac mass conc 0.03 ng/mL Normal 0.00 - 0.03 [facility] Comment on above: Result Comment: LESS THAN 0.04 NG/ML: NEGATIVEREPEAT TESTING IN FOUR TO SIX HOURSIF CLINICALLY INDICATED.0.04 - 0.5 NG/ML: CONSISTENT WITH POSSIBLECARDIAC DAMAGE AND POSSIBLE INCREASEDCLINICAL RISK.SERIAL MEASUREMENTS MAY HELP ASSESS EXTENT OFMYOCARDIAL DAMAGE.>0.5 NG/ML: CONSISTENT WITH CARDIAC DAMAGE,INCREASED CLINICAL RISK AND MYOCARDIALINFARCTION. SERIAL MEASUREMENTS MAY HELPASSESS EXTENT OF MYOCARDIAL DAMAGE..Note: Troponin I testing is performed using differenttesting methodology [facility]. Direct result comparisons should onlybe made within the same method. Performed By: #### L IPID ####[facility] [place] [address] UA MICROSCOPICon 07-26-2017 AMORPHOUS CRYSTAL 1+ /HPF Normal [facility] Comment on above: Performed By: #### L IPID ####[id number] [place] [address] BACTERIA 4+ /HPF Abnormal [facility] Comment on above: Performed By: #### L IPID ####[id number] [place] [address] HYALINE CAST 3+ /LPF Abnormal [facility] Comment on above: Performed By: #### L IPID ####[id number] [place] [address] MUCUS FEW Normal [facility] Comment on above: Performed By: #### L IPID ####[id number] [place] [address] RBC 2 /HPF Abnormal 0-5 [facility] Comment on above: Performed By: #### L IPID ####[id number] [place] [address] SQUAMOUS EPITH. CELLS 1 /HPF Normal [facility] Comment on above: Performed By: #### L IPID ####[id number] [place] [address] TRANSITIONAL EPITH.CELLS <1 Normal [facility] Comment on above: Performed By: #### L IPID ####[address] [place] [address] WBC 8 /HPF Abnormal 0-5 [facility] Comment on above: Performed By: #### L IPID ####[id number] [place] [address] URINALYSISon 07-26-2017 APPEARANCE HAZY Normal CLEAR [facility] Comment on above: Performed By: #### L IPID ####[id number] [place] [address] BILIRUBIN Negative Normal NEGATIVE [facility] Comment on above: Performed By: #### L IPID ####[id number] [place] [address] BLOOD SMALL(1+) Abnormal NEGATIVE [facility] Comment on above: Performed By: #### L IPID ####[address] [place] [address] COLOR YELLOW Normal STRAW,YELL OW [facility] Comment on above: Performed By: #### L IPID ####[address] [place] [address] GLUCOSE Negative Normal NEGATIVE [facility] Comment on above: Performed By: #### L IPID ####[facility] [place] [address] KETONES Negative Normal NEGATIVE [facility] Comment on above: Performed By: #### L IPID ####[facility] [place] [address] LEUKOCYTE ESTERASE MODERATE(2+) Abnormal NEGATIVE [facility] Comment on above: Performed By: #### L IPID ####[facility] [place] [address] NITRITE Negative Normal NEGATIVE [facility] Comment on above: Performed By: #### L IPID ####[facility] [place] [address] pH 6.0 Normal 5.0 - 8.0 [facility] Comment on above: Performed By: #### L IPID ####[id number] [place] [address] Protein mass conc Negative Normal NEGATIVE [facility] Comment on above: Performed By: #### L IPID ####[address] [place] [address] SPECIFIC GRAVITY 1.009 Normal 1.005 - 1.035 [facility] Comment on above: Performed By: #### L IPID ####[facility] [place] [address] UROBILINOGEN <2.0 Normal 0.0 - 1.9 [facility] Comment on above: Performed By: #### L IPID ####[id number] [place] [address] URINE CULTURE,BACTERIALon URINE CULTURE,BACTERIAL PATIENT: KATHERINE JUDGE LOCATION: [address]#: [id number] : [birth year] AGE: SEX: F ORDERED BY: TOMMY MENDEZ: URINE COLLECTED: 07/26/17 15:06ANTIBIOTICS AT ESDRAS.: RECEIVED : 07/27/17 09:18SITE: Straight Cath R E S U L T S URINE CULTURE,BACTERIAL FINAL 07/28/17 09:31 MULTIPLE ORGANISMS PRESENT, PROBABLE CONTAMINATION PLEASE REPEAT CULTURE. Normal [facility] Comment on above: Performed By: #### L IPID ####[facility] [place] [address] URINE CULTURE,BACTERIAL PATIENT: KATHERINE JUDGE LOCATION: [address]#: [id number] : [birth year] AGE: SEX: F ORDERED BY: TOMMY MENDEZ: URINE COLLECTED: 07/26/17 15:06ANTIBIOTICS AT ESDRAS.: RECEIVED : 07/27/17 09:44SITE: R E S U L T S URINE CULTURE,BACTERIAL FINAL 07/28/17 09:24 NO SIGNIFICANT GROWTH. Normal [facility] Comment on above: Performed By: #### L IPID ####[address] [place] [address] BASIC METABOLIC PANELon Anion gap 3 molar conc 14 mmol/L Normal 10 - 20 [facility] Comment on above: Performed By: #### L IPID ####[address] [place] [address] Calcium mass conc 8.9 mg/dL Normal 8.6 - 10.3 [facility] Comment on above: Performed By: #### L IPID ####[address] [place] [address] Chloride molar conc 102 mmol/L Normal 98 - 107 [facility] Comment on above: Performed By: #### L IPID ####[facility] [place] [address] Creatinine mass conc 0.97 mg/dL Normal 0.50 - 1.05 [facility] Comment on above: Performed By: #### L IPID ####[address] [place] [address] GFR- AM. 67 mL/min/1.73m2 Normal >60 [facility] Comment on above: Result Comment: CALC ULATIONS OF ESTIMATED GFR ARE PERFORMED USING THE MDRD STUDY EQUATION FOR THE IDMS-TRACEABLE CREATININE METHODS. CLIN CHEM 2007;53:766-72 Performed By: #### L IPID ####[facility] [place] [address] GFR-NON AM. 55 mL/min/1.73m2 Abnormal >60 [facility] Comment on above: Performed By: #### L IPID ####[facility] [place] [address] Glucose mass conc 98 mg/dL Normal 74 - 99 [facility] Comment on above: Performed By: #### L IPID ####[address] [place] [address] HCO3 molar conc (Bld) 22 mmol/L Normal 21 - 32 [facility] Comment on above: Performed By: #### L IPID ####[address] [place] [address] Potassium molar conc 4.2 mmol/L Normal 3.5 - 5.3 [facility] Comment on above: Performed By: #### L IPID ####[address] [place] [address] Sodium molar conc 134 mmol/L Low 136 - 145 [facility] Comment on above: Performed By: #### L IPID ####[address] [place] [address] Urea nitrogen mass conc 31 mg/dL High 6 - 23 [facility] Comment on above: Performed By: #### L IPID ####[address] [place] [address] Daily Progress Note-Surgeryo n 07-16-2017 Protein mass conc Service: Surgery Sub jective Data:KATHERINE JUDGE is a 82 year old Female who is Hospital Day # 8. MUCH LESS CONFUSED / CR ELEVATED. Objective Data: Objective Information:T [id number] 2%Date/Time07/16 6: 6: 6: 6: 6:51Range(36.2C - 36.9C ) (67 - 81 ) (16 - 18 ) (93 - 160 )/ (54 - 74 ) (92%- 96% )Highest temp of 36.9 C was recorded at 07/15 14:48 Pain at Rest reported at 07/16 5:06: 6 Physical Exam: Constitutional: CACHETIC no distress, alert and cooperativeRespiratory/Thora x: Patent airways, CTAB, normal breath soundsCardiovascular: Regular, rate and rhythm, no murmurs,Gastrointestinal: Nondistended, soft, non-tender, n0 guarding, no massespalpable, no organomegaly, SMALL AREA OF DRAINAGE LOWER INCISIONMusculoskeletal: normal strengthExtremities: normal extremities,Neurological: intact senses, , WEAK strengthLymphatic: No significant lymphadenopathyPsychological : Appropriate mood and behavior Recent Lab Results: Results: I have reviewed these laboratory results: Complete Blood Count 15-Jul-2017 20:25:00 ResultValueWhite Blood Cell Count 12.9 HRed Blood Cell Count 3.06 LHGB 10.5 LHCT 32.1 LMCV 105 HMCHC 32.7PLT 715 HRDW-CV 15.1 H Basic Metabolic Panel 15-Jul-2017 20:25:00 ResultValueGlucose, Serum 91NA 134 LK 5.1CL 99Bicarbonate, Serum 24Anion Gap, Serum 16BUN 27 HCREAT 1.42 HGFR-Non 35 AGFR- 42 ACalcium, Serum 9.4 Assessment and Plan: Admitting Dx:Physical deconditioning: Entered Date: 09-Jul-2017 08:41 Additional Dx:Cecal volvulus: Entered Date: 16-Jul-2017 07:22Severe protein-calorie malnutrition (Carrera: less than 60% of standard weight):Entered Date: 12-Jul-2017 07:46Clostridium difficile colitis: Entered Date: 10-Jul-2017 12:52Acute on chronic diastolic (congestive) heart failure: Entered Date:09-Jul-2017 09:28S/P right hemicolectomy: Entered Date: 03-Jul-2017 00:33Small bowel obstruction: Entered Date: 02-Jul-2017 20:32 Comorbidities:Comorbidity: acute kidney injuryKidney: no further specification, DEHYDRATION Assessment:PLAN- DC LASIX AND POTASSIUM / HYDRATE PATIENT / CONTINUE REHAB / DC PLANNINGTO REHAB Electronic Signatures:Manny Arana) (Signed 16-Jul-2017 07:23)Authored: Service, Subjective Data, Objective Data, Assessment and Plan,Signature/Cosignature/A ttestation Last Updated: 16-Jul-2017 07:23 by Manny Arana) Normal [facility] BASIC METABOLIC PANELon 06-0 Anion gap 3 molar conc 16 mmol/L Normal 10 - 20 [facility] Comment on above: Performed By: #### L ACT ####[address] [place] [address] Calcium mass conc 9.4 mg/dL Normal 8.6 - 10.3 [facility] Comment on above: Performed By: #### L ACT ####[address] [address] Chloride molar conc 99 mmol/L Normal 98 - 107 [facility] Comment on above: Performed By: #### L ACT ####[address] [address] Creatinine mass conc 1.42 mg/dL High 0.50 - 1.05 [facility] Comment on above: Performed By: #### L ACT ####[address] [place] [address] GFR- AM. 42 mL/min/1.73m2 Abnormal >60 [facility] Comment on above: Result Comment: CALC ULATIONS OF ESTIMATED GFR ARE PERFORMED USING THE MDRD STUDY EQUATION FOR THE IDMS-TRACEABLE CREATININE METHODS. CLIN CHEM 2007;53:766-72 Performed By: #### L ACT ####[address] [address] GFR-NON AM. 35 mL/min/1.73m2 Abnormal >60 [facility] Comment on above: Performed By: #### L ACT ####[address] [place] [address] Glucose mass conc 91 mg/dL Normal 74 - 99 [facility] Comment on above: Performed By: #### L ACT ####[address] [address] HCO3 molar conc (Bld) 24 mmol/L Normal 21 - 32 [facility] Comment on above: Performed By: #### L ACT ####[address] [place] [address] Potassium molar conc 5.1 mmol/L Normal 3.5 - 5.3 [facility] Comment on above: Performed By: #### L ACT ####[address] [place] [address] Sodium molar conc 134 mmol/L Low 136 - 145 [facility] Comment on above: Performed By: #### L ACT ####[address] [address] Urea nitrogen mass conc 27 mg/dL High 6 - 23 [facility] Comment on above: Performed By: #### L ACT ####[address] [address] CBCon 07-15-2017 Erythrocyte distribution width Auto Ratio (RBC) 15.1 % High 11.5 - 14.5 [facility] Comment on above: Performed By: #### L ACT ####[address] [address] Hematocrit Auto Volume Fraction (Bld) 32.1 % Low 36.0 - 46.0 [facility] Comment on above: Performed By: #### L ACT ####[address] [address] Hemoglobin mass conc (Bld) 10.5 g/dL Low 12.0 - 16.0 [facility] Comment on above: Performed By: #### L ACT ####[address] [address] MCHC Auto mass conc (RBC) 32.7 g/dL Normal 32.0 - 36.0 [facility] Comment on above: Performed By: #### L ACT ####[address] [address] MCV Auto Entitic volume (RBC) 105 fL High 80 - 100 [facility] Comment on above: Performed By: #### L ACT ####[address] [address] Platelets Auto #/vol (Bld) 715 10*3/uL High 150 - 450 [facility] Comment on above: Performed By: #### L ACT ####[facility] [place] [address] RBC Auto #/vol (Bld) 3.06 x10E12/L Low 4.00 - 5.20 [facility] Comment on above: Performed By: #### L ACT ####[facility] [place] [address] WBC Auto #/vol (Bld) 12.9 10*3/uL High 4.4 - 11.3 [facility] Comment on above: Performed By: #### L ACT ####[facility] [place] [address] Daily Progress Note-Samarao n 07-15-2017 Protein mass conc Service: Surgery Sub jective Data:KATHERINE JUDGE is a 82 year old Female who is Hospital Day # 7. Patient only has complaint of sinus congestion. Reports abd pain is unchangedfrom yesterday. Denies fever, chills, nausea, vomiting. Passing gas, unsure ifshe passed stool. Denies feeling any pain at this time. Objective Data: Objective Information: T [id number]/749 2%Date/Time07/15 7: 7: 7: 7: 7:22Range(36C - 36.6C ) (72 - 101 ) (16 - 18 ) (117 - 160 )/ (63 - 87 ) (92%- 95% ) Pain with Activity reported at 07/14 14:57: 7Pain at Rest reported at 07/14 14:57: 7 Weights07/15 5:00: Weight in kg (Weight (kg)) 44.86/6 5:00: Weight in lbs ((lbs)) 98.7 Physical Exam: Constitutional: Cachectic, no distress, alert and cooperativeEyes: Clear scleraENMT: Lips appear dry, no apparent injury, no lesions seenHead/Neck: Neck supple, no apparent injury, No JVD, trachea midlineRespiratory/Thorax: Patent airways, CTAB, normal breath sounds with good chestexpansion, thorax symmetricCardiovascular: Regular, rate and rhythm, no murmurs, 2+ equal pulses of theextremities, normal S 1and S 2Gastrointestinal: Mild tenderness to light palpation at midepigastrium and nearincision site. Otherwise, nondistended, soft, non-tender, no rebound tendernessor guarding, no masses palpable, no organomegaly, +BS.Musculoskeletal: ROM intact, no joint swelling, weak strengthExtremities: normal extremities, no cyanosis edema, contusions or wounds, noclubbingNeurological: intact senses, motor, weak strengthLymphatic: No significant lymphadenopathyPsychological : ConfusionSkin: Warm and dry, no lesions, no rashes. Ecchymosis of right hand/forearem Medication: Medications: Continuous Medications ----No continuous medications are active Scheduled Medications ---- 1. Aspirin Chewable: 81 mg Oral Daily2. Clopidogrel: 75 mg Oral Daily3. Enoxaparin SubCutaneous: 40 mg SubCutaneous Every 24 Hours4. Furosemide: 40 mg Oral Daily5. Gabapentin: 300 mg Oral 3 Times a Day6. Isosorbide Mononitrate Extended Release: 60 mg Oral Daily7. Lisinopril: 10 mg Oral Daily8. Metoprolol Tartrate: 50 mg Oral Every 12 Hours9. Pantoprazole: 40 mg Oral Daily10. Potassium Chloride Extended Release: 40 mEq Oral 2 Times a Day11. Simvastatin: 40 mg Oral At Iylqssl51. Vancomycin Oral Liquid: 125 mg Oral Every 6 Hours13. Witch Giorgi Topical: 1 application(s) Topical 2 Times a Day PRN Medications ---- 1. Albuterol 2.5 mg/ 3 mL Nebulizer Soln: 3 mL Inhalation Every 4 Hours2. ALPRAZolam: 0.5 mg Oral Every 8 Hours3. Ondansetron Injectable: 4 mg IntraVenous Push Every 6 Hours4. Oxybutynin: 5 mg Oral At Bedtime5. oxyCODONE 5 mg - Acetaminophen 325 m tablet(s) Oral Every 4 Hours6. Sodium Chloride 0.9% Injectable Flush: 10 mL IntraVenous Flush Every 8Hours and as Needed7. traMADol: 50 mg Oral Every 6 Hours Currently Suspended Medications ---- 1. buPROPion Extended Release (24 hour): 150 mg Oral Every 24 Hours2. Gabapentin: 800 mg Oral 3 Times a Day Assessment and Plan:Assessment:82-year-old female admitted to skilled bed for physical deconditioningfollowing cecal volvulus s/p right hemicolectomy. 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 with treated with PO vancomycin-appreciate nutrition consult, Dx moderate protein calorie malnutrition Altered Mental Status-holding narcotic pain medications Plan yet to be discussed with Dr Sumit Hendrix, [facility] PGY-1#[id number] Electronic Signatures:Manny Arana) (Signed 15-Jul-2017 17:05)Authored: Signature/Cosignature/Attest ationCo-Signer: Service, Subjective Data, Objective Data, Assessment and Plan,Signature/Cosignature/A ttestationAftab Hendrix (Resident)) (Signed 15-Jul-2017 08:43)Authored: Service, Subjective Data, Objective Data, Assessment and Plan,Signature/Cosignature/A ttestation Last Updated: 15-Jul-2017 17:05 by Manny Arana) Normal [facility] Discharge [id number] Protein mass conc Discharge Orders:Ant icipated Discharge Date:? Anticipated Discharge [id number] Problem List: Additional Dx:? Cecal volvulus: Catalog Name: Volvulus? Clostridium difficile colitis: Catalog Name: Enterocolitis due toClostridium difficile, not specified as recurrent? S/P right hemicolectomy: Catalog Name: Acquired absence of other specifiedparts of digestive tract Hospital Providers:Provider RoleProvider Name? Jw Pruitt? Manny Arshad Activity:activity as tolerated. May shower. May not drive. No pushing, pulling, or lifting objects greater than 5 pounds. Diet:? DietHigh calorie, High Protein? Diet Consistency/Texturesoft Call Provider If (Homegoing Patients):Breathing faster than normal. Breathing harder than normal or having retractions. Fever of 100.4 F (38 C) or higher. Chills. Drinking less than normal. Urinating less than normal, over 1 day. Urinating less than 4 times per day. Acting very sleepy and difficult to awaken. Vomiting (throwing up) and not able to eat or drink for 12 hours. 3 or more loose, watery bowel movements in 24 hours (diarrhea). Any new concerning symptoms. Hospital Course (Home Care/Gold Form):Hospital Course:? Hospital Course: include significant abnormal lab valuesPatient came to ED with cecal volvulus which was addressed surgically withright hemicolectomy and admitted to ICU for recovery and transferred to [facility] stable. On the floor she experienced some altered mental status withhallucinations and home medications were adjusted to prevent episodes of AMS.Her Xanax was discontinued, Percocet was discontinued, oxybutinin was heldtemporarily and her gabapentin was decreased to 300mg/dose. The hallucinationsand altered mental status resolved during her stay. She also experiencedelevated Creatinine levels and K+ was discontinued as well. This resolved aswell. PT and OT evaluated patient during her stay for her physicaldeconditioning. OT receommended ADL retraining; strengthening; jointmobilization; balance training. PT recommended transfer training; bed mobilitytraining; gait training; neuromuscular re-education; stair training;strengthening.Kaye valera was found to be in satisfactory condition [facility]. It is recommended herabdominal incision be monitored daily with new 4x4 applied daily and discardprevious 4x4. Gold Form Orders:Care Recommendation:? I recommend that INPATIENT care is required at:Skilled? Estimated StayConvalescent stay < 30 days? PrognosisGood? Rehab Potential/FunctionImprove? Provider CertificationI certify that inpatient care is required at the levelrecommended above. To the best of my knowledge, all information provided aboutthe individual is a true and accurate reflection of the individual's condition. Therapy Orders:? Occupational Therapy OrdersEval and Treat ([facility]) 2times/day? Physical Therapy OrdersEval and Treat ([facility]) 2times/day Provider Follow Up:? Physician To Follow at Skilled/RehabAttending Physician at Skilled/Rehab Provider FINAL REVIEW of Orders:Final Review:? Final Review of Medication Reconciliation and Orders Completedby Physician? Reviewing ProviderAftab Hendrix DO (Resident) at 17-Jul-2017 10:39:47 Appointments:Follow-Up Appointment 01:? Physician/Dept/Seble Arana? Scheduled Date/[id number] 13:45? [facility] Phone [phone] Gold Form - Nursing Summary:Special Treatments/Procedures (in past 14 days):? Chemotherapyno? Dialysisno? IV Medicationno? Oxygen Therapyno? Transfusionsno? Feverno? Radiationno? Ventilatorno? Tracheostomyno? Suctioningno Nutrition:? Nutritional Statuspoor appetite Sensory/Comfort:? Visionadequate? Hearingadequate? Speechclear? Painyes? Pain Type6-7? Pain LocationGeneralized back pain? Whenfrequently? Pain Relieved Bymedication and positioning Elimination:? Bladdercontinent? Bowelcontinent? Last Bowel [id number]? Toiletingdependent Safety:? Siderailsyes? Siderails Number/Reason2? Restraintsno? Sitterno Medication/Hygiene/Mobility: ? Medication Administrationsupervision only Gold Form - [employer] Floorperson Summary:Referral Information:? Referral [facility]? Referring Facility [facility]? Contact Tabitha Muller [facility]? Contact Phone [phone] Mental & Functional Status:? Mental/Behavioral Statusalert, cooperative? Functional Status Prior To AdmissionIndependent? Mental/Functional CommentIntermittent confusion Electronic Signatures:Ayse Martinez (RN) (Signed 16-Jul-2017 15:24)Authored: Manny Haley) (Signed 17-Jul-2017 11:26)Authored: Gold Form Orders, Provider FINAL REVIEW of Orders, Gold Form -Nursing SummaryCo-Signer: Discharge Orders, Gold Form Orders, Provider FINAL REVIEW ofOrders, Gold Form - [employer] Floorperson SummaryAftab Hendrix (Resident)) (Signed 17-Jul-2017 10:40)Authored: Discharge Orders, Hospital Course (Home Care/Gold Form), ProviderFINAL REVIEW of OrdersWanda Muller (CLIN COOR) (Signed 15-Jul-2017 15:51)Authored: Gold Form Orders, Gold Form - [employer] Floorperson Summary Last Updated: 17-Jul-2017 11:26 by Manny Arana () Normal [facility] Nutrition Therapy-Follow Upo n 07-15-2017 Nutrition Therapy-Follow Up Assessment Subjective/Objective:Note Type: Follow Up Note Authored by: Registered Dietitian NutritionistPager Number: [phone] Nutrition Note:The patient is a 82 year old Female admitted for rehab. Per chart: Pt presented to ED on 07/02/17 with abdominal pain and nausea thatbegan 07/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 Pt admitted for surgery, now s/p R hemicolectomy, and stapledileocolonic anastomosis on 07/03/17. Was transferred [facility] acute care.Chest xray on 07/06 showed worsening CHF; IV fluids held and IV Lasix started.Was found with + C.diff on 07/08, started on PO vancom[facility]. [facility] for rehab for deconditioning andcontinued electrolyte replacement. Recently pt was experiencing someconfusion: Welbutrin, gabapentin, and narcotic pain meds were stopped. Visited pt at beside, pt was sitting up in bed. Family present at time ofvisit. Lunch tray observed on tray table; pt stated that she ate 50% of lunch. Says that she does not like Boost Pudding, requested regular vanilla pudding.Pt also complained of mouth sores inside and outside of mouth; says it happenswhen she takes antibiotics; requested moisturizing oral rinse; Dr. Aranacontacted via [facility] on 07/15. Per flowsheet, pt ate 30% lunch and dinner and20% breakfast on 07/14 and 50% breakfast on 07/13. Pt not amenable to cream based ONS, Boost pudding Pt was NPO x 3 days (07/02 to 07/05)Pt on clear liquids x 2 days (07/05 to 07/06)Low fiber / soft (07/07 to 07/09)High protein / high calorie (07/10 to 07/15) . 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:Acute on chronic diastolic (congestive) heart failure:Hypokalemia:Pulmonar y edema:Tachypnea:S/P right hemicolectomy:Small bowel obstruction:NSTEMI (non-ST elevated myocardial infarction):UTI (urinary tract infection), bacterial:Anemia:Lactic acidosis:Leukocytosis, unspecified type:Hypotension (arterial):Pneumonia of right lower lobe due to infectious organism:Acute encephalopathy: Medical History:Gastrocutaneous fistula:Constipation:Ileus:A nemia due to unknown or multiple mechanisms (disorder):Transient ischemic colitis (disorder):Protein malnutrition unspecified (disorder):Hypokalemia (disorder):Magnesium deficiency:Colitis (disorder):Small bowel obstruction (disorder):Acute bowel obstruction: Onset Date: 11-Feb-2012 Chronic:Fluid overload pulmonary edema:Clostridium difficile infection:Diarrhea: Other Dx/Proc:Unstable angina/chest pain: Description: Unstable angina/chest painGastrointestinal bleeding: Description: Gastrointestinal bleeding1 Colitis, 2 Abdomen Pain 3 Cholelithiasis: Onset Date: 65-Avp-2639Qmqfo failure: Description: Heart failurePNEUMONIA:Diabetes mellitus: Description: Diabetes mellitusAbdominal pain: Description: Abdominal painElectrolyte imbalance: Description: Electrolyte imbalancePost CABG: Description: Post CABGCoronary artery disease: Description: Coronary artery diseaseNon ST Elevation Myocardial Infarction (NSTEMI): Description: Non ST ElevationMyocardial Infarction (NSTEMI)Coronary angioplasty/stent (PCI): Description: Coronary angioplasty/stent(PCI)Dyspne a: Description: DyspneaCoronary atherosclerosis: Description: Coronary atherosclerosisLeft heart catheterization: Description: Left heart catheterizationHypotension:S epsis: Description: SepsisVenous thromboembolism: Description: Venous thromboembolism Medical History:Gastrocutaneous fistula:Constipation:Ileus:A nemia due to unknown or multiple mechanisms (disorder):Transient ischemic colitis (disorder):Protein malnutrition unspecified (disorder):Hypokalemia (disorder):Magnesium deficiency:Colitis (disorder):Small bowel obstruction (disorder):Acute bowel obstruction: Onset Date: 07-Jfy-9930Mevhu bowel obstruction: Objective Information: T [id number]/749 4%Date/Time07/15 14: 16: 14: 16: 14:48Range(36.6C - 36.9C ) (67 - 82 ) (16 - 18 ) (93 - 160 )/ (58 - 74 ) (92%- 94% )Highest temp of 36.9 C was recorded at 07/15 14:48 Pain at Rest reported at 07/15 10:05: 4 Weights07/15 5:00: Weight in kg (Weight (kg)) 44.86/ 5:00: Weight in lbs ((lbs)) 98.7 ---- Intake and Output -----Mn/Dy/Year TimeIntakeOutNorth[facility] 2017 10:00 [id number] The Intake and Output Totals for the last 24 hours are:UbdgqzSvrveyPpd551ttvbmx ll Height/Weight:Height in feet: 5 feetHeight in inches: 2 inch(es)Height in cm: 157.4 centimeter(s)Weight in lbs: 98.7 pound(s)Weight (kg): 44.8BMI (kg/m2): 18.082 square meterDBW (kg): 57.3%DBW: 78Weight history/ % weight change: DBW-126 lbs for BMI 23 in adult >65 yearsWeight History:UBW: 50 to 50.1 kg (self reported)-current wt is 89% UBW)07/10/17: 49 kg (8.6% weight loss x 5 days-suspect weight loss partly due tofluid shifts and partly due to poor PO intake)07/09/17: 47.8 kg07/06/17: 54.6 kg07/03/17: 53.8 kg01/02/17: 47.2 kg- No edema per flowsheet, ? weight gain from 12/26 vs fluidshifts in pt with history of malnutrition/ pulmonary edema / heart failureSignificant Weight Change: yes Recent Lab Results: Results:Most recent labs 07/13/17:Glu 123 (H)H/H .3 (L) Nutrition Labs:Special Chemistry: 03-Jul-2017 10:15, Hemoglobin V5BScimqwdiph A1C, Level5.3 Diagnosis of Diabetes-Adults Non-Diabetic: < or = 5.6% Increased risk for developing diabetes: 5.7-6.4% Diagnostic of diabetes: > or = 6.5%. Monitoring of Diabetes Age (y) Therapeutic Goal (%) Adults: >18 <7.0 Pediatrics: 13-18 <7.5 7-12 <8.0 0- 6 7.5-8.5 [place] [employer]. Diabetes Care 33(S1), Feb 2009.Estimated Average [id number] Current Active Medications/PN:Clopidogrel, Tablet (PLAVIX)DOSE = 75 mg Oral Daily, 64-Jyh-5223Ikqogbwdbx SubCutaneous, (LOVENOX)DOSE = 40 mg SubCutaneous Every 24 HoursNotes from Pharmacy: NOTE DOSAGE STRENGTH, 61-Knb-0378Odriighlqm, Tablet (LASIX)DOSE = 40 mg Oral Daily, 95-Zst-4668Wcleomuaij Mononitrate Extended Release, Tablet, Extended Release (IMDUR)DOSE = 60 mg Oral Daily, 00-Mcc-8613Hwcyvxlnbd, Tablet (PRINIVIL, ZESTRIL)DOSE = 10 mg Oral Daily, 42-Dyj-2835Sgqkpidgip Tartrate, Tablet (LOPRESSOR)DOSE = 50 mg Oral Every 12 Hours, 52-Mow-2931Opngeccpwntf, Enteric Coated Tablet (PROTONIX)DOSE = 40 mg Oral Daily, 14-Zeq-3159Uwkdcolwwgi, Tablet (ZOCOR)DOSE = 40 mg Oral At Bedtime, 84-Aha-7828Mslmeakijh Oral Liquid, DOSE = 125 mg Oral Every 6 Hours, 46-Ywq-4947Rbllwelql Chloride Extended Release, Tablet, Extended ReleaseDOSE = 40 mEq Oral 2 Times a Day, 51-Dpj-1964Mwbzpmgirx, Capsule (NEURONTIN)DOSE = 300 mg Oral 3 Times a Day, 50-Ajz-6801Shgxxp Substitute, SolutionDOSE = 15 mL Oral 4 Times a Day, 15-Jul-2017 Nutrition Orders:Oral Nutritional Supplements, RoutineResource BreezeFlavor Preference: [place]; [place], 2 Times a DaySpecial Instructions: Please send Boost Breeze orange at breakfast and BoostArtieze york at dinner, 84-Seq-7436Vhb-Stat 101, Oral - Administer as a scheduled medication. Pour packet into a30 ML medicine cup. Tube Feeding - Standard flush before and afteradministering 3 Times a Day Xlvaybk7SK (Oral), 43-Jvc-7321Jmhx May Participate in Room Service W. Assistance, YesOrder entered from Admission Screens., 10-Tml-6787Prer, High Calorie; High Protein, 07-Quf-5298Vwjh Nutritional Supplements, RoutineBoost PuddingFlavor Preference: Vanilla, DailySpecial Instructions: Please send Boost Pudding Vanilla with lunch tray.Thank you!, 13-Jul-2017 Food/Nutrition Related History:Change in Oral Intake/Appetite: decrease -Pt was eating 50% to 75% meals, noweating 20 to 50% mealsGI Symptoms: none, +BM x 1 6/4 per flowsheetTime Frame for GI Symptoms Greater Than 2 Weeks: not applicableOral Problems: Pt reports stomatitis today.Mobility: bed/chair ridden Skilled Unit ONLY:Appetite/Fluid Intake: poor (less than 49%), less than 1500 ml/day, 360 mlfluid x 24 hoursFeeding Ability: independent, tray set-up requiredDentition: own/edentulousOral Function: stomatitis Food Allergies Comment: shellfish, salmon Nutrition Focused Physical Findings:Muscle Wasting:Temporal: yesShoulder: deferClavicle: deferScapula/Back: deferBiceps/Triceps: yesInterosseous: yesQuadriceps: deferCalf: deferMuscle Comment: mild to moderate temporal, interosseous, bicep/tricep muscleloss Loss of Subcutaneous Fat:Eyes: yesPerioral: yesTriceps: yesChest: deferSubcutaneous Fat Comment: mild orbital, perioral, triceps fat loss; observedhanging skin at triceps Other Physical Findings:Hair: negativeEyes: negativeMouth: negativeNails: negativeSkin: per flowsheet, bruised ecchymotic, incision midline abdominal closed withsteristrips per flowsheetEdema: none, per flowsheetChange in Metabolic Demand: yes UTI, pneumonia, CHF, Pt s/p surgerySubjective Global Assessment Rating: severe malnutritionEtiology: acute illness or injury Estimated Needs:kcals/day: 1500 to 1700 kcal/day (30 to 35 kcal/kg actual weight)gms protein/day: 60 to 75 g/day (1.2 to 1.5 g/kg actual weight)mL fluid/day: per physician Nutrition Diagnosis:Diagnosis1 ongoing. Dx: Moderate protein calorie malnutrition. related toalteration in GI tract structure / function and acute illness as evidenced byweight loss ~ 8.6% x 5 days, pt with intake < 75% estimated energy requirementx 14 days, mild to moderate muscle and subcutaneous fat loss in multiplelocations in pt with UTI, pneumonia, CHF, s/p hemicolectomy. Diagnosis2 new. Additional Assessment Information: Labs Noted:07/13: Glu 123 (H); 07/09: Glu 111 (H), likely secondary to stress07/13: H/H 11/.3 (L), improving, was H/H 9.4/27.9 (L). Nutrition Interventions:Individualized Nutrition Prescription Provided for: diet, vitamins, mineralsDiet Education: Encouraged PO intake, encouraged pt to order favorite foodsDiet Education Provided: -Encouraged PO intake, encouraged pt order favoritefoodsOrdered Supplements: Increase Boost Breeze to 3 x day. Nutrition Goals:Goals: Nutrition Therapy: oral intake greater than 75%, consume prescribedsupplement, adequate po fluid intake, Blood Glucose 80-180 mg/dl, promotehealing, maintain stable weightNutrition Goal Outcomes: goal partially met pt receiving Prostat TID, drinkingBoost Breeze BID Outcomes Summary: Nutrition TherapyProgress: Nutrition Therapy: decliningOutcome Summary: Nutritional Therapy: -Moderate protein calorie malnutrition NUTRITION RECOMMENDATIONS:Recommendati ons:1. Continue High Calorie / High Protein Diet2. Increase Boost Breeze to TID (750 kcal / 27 g protein)3. Continue Prostat TID (300 kcal / 45 g protein)4. Will d/c Boost Pudding5. Consider appetite stimulant6. MVI with minerals7. Check weight daily Nutrition Therapy Recommendations:Nutrition Therapy Recommendations: 1. Continue High Calorie / High ProteinDiet2. Increase Boost Breeze to TID (750 kcal / 27 g protein)3. Continue Prostat TID (300 kcal / 45 g protein)4. Will d/c Boost Pudding, 5. Consider appetite stimulant , 6. MVI withminerals, 7. Check weight daily Dietitian Monitoring and Evaluation Plan:Monitoring and Evaluation Plan: po intake and tolerance, fluid intake/adequacy,vitamin/mine ral intake, digestive function, weight trend, stool output, overallappearance, labsOther Plan: Evaluate nutrition intervention as compared to nutrition goal(s)and estimated nutrient need criteria. Diet Education:Nutrition Education: -Encouraged PO intake, encouraged pt to order favoritefoodsEducation Provided to: patient, familyUnderstanding of Diet: fair, needs reinforcementAnticipated Compliance: fair Electronic Signatures:Silvia Tyler ([place], DEEPA) (Signed 15-Jul-2017 18:05)Authored: Assessment Subjective/Objective, Nutrition Focused PhysicalFindings, Estimated Needs, Nutrition Diagnosis, Nutrition Interventions,Nutrition Goals, Nutrition Recommendations, Dietitian Monitoring and EvaluationPlan, Diet Education Last Updated: 15-Jul-2017 18:05 by Silvia Tyler ([place], DEEPA) Normal [facility] BASIC METABOLIC PANELon 06-0 Anion gap 3 molar conc 14 mmol/L Normal 10 - 20 [facility] Comment on above: Performed By: #### L ACT ####[id number] [place] [address] Calcium mass conc 8.9 mg/dL Normal 8.6 - 10.3 [facility] Comment on above: Performed By: #### L ACT ####[address] [place] [address] Chloride molar conc 102 mmol/L Normal 98 - 107 [facility] Comment on above: Performed By: #### L ACT ####[address] [place] [address] Creatinine mass conc 0.69 mg/dL Normal 0.50 - 1.05 [facility] Comment on above: Performed By: #### L ACT ####[address] [place] [address] GFR- AM. >60 Normal >60 [facility] Comment on above: Result Comment: CALC ULATIONS OF ESTIMATED GFR ARE PERFORMED USING THE MDRD STUDY EQUATION FOR THE IDMS-TRACEABLE CREATININE METHODS. CLIN CHEM 2007;53:766-72 Performed By: #### L ACT ####[address] [place] [address] GFR-NON AM. >60 Normal >60 [facility] Comment on above: Performed By: #### L ACT ####[address] [place] [address] Glucose mass conc 123 mg/dL High 74 - 99 [facility] Comment on above: Performed By: #### L ACT ####[address] [place] [address] HCO3 molar conc (Bld) 27 mmol/L Normal 21 - 32 [facility] Comment on above: Performed By: #### L ACT ####[address] [address] Potassium molar conc 3.8 mmol/L Normal 3.5 - 5.3 [facility] Comment on above: Performed By: #### L ACT ####[address] [address] Sodium molar conc 139 mmol/L Normal 136 - 145 [facility] Comment on above: Performed By: #### L ACT ####[address] [address] Urea nitrogen mass conc 14 mg/dL Normal 6 - 23 [facility] Comment on above: Performed By: #### L ACT ####[address] [address] CBCon 07-13-2017 Erythrocyte distribution width Auto Ratio (RBC) 14.9 % High 11.5 - 14.5 [facility] Comment on above: Performed By: #### L ACT ####[address] [address] Hematocrit Auto Volume Fraction (Bld) 31.3 % Low 36.0 - 46.0 [facility] Comment on above: Performed By: #### L ACT ####[address] [address] Hemoglobin mass conc (Bld) 11.0 g/dL Low 12.0 - 16.0 [facility] Comment on above: Performed By: #### L ACT ####[address] [address] MCHC Auto mass conc (RBC) 35.1 g/dL Normal 32.0 - 36.0 [facility] Comment on above: Performed By: #### L ACT ####[facility] [place] [address] MCV Auto Entitic volume (RBC) 100 fL Normal 80 - 100 [facility] Comment on above: Performed By: #### L ACT ####[facility] [place] [address] Platelets Auto #/vol (Bld) 614 10*3/uL High 150 - 450 [facility] Comment on above: Result Comment: Plat elet count verified by smear review. Performed By: #### L ACT ####[address] [place] [address] RBC Auto #/vol (Bld) 3.14 x10E12/L Low 4.00 - 5.20 [facility] Comment on above: Performed By: #### L ACT ####[address] [place] [address] WBC Auto #/vol (Bld) 11.0 10*3/uL Normal 4.4 - 11.3 [facility] Comment on above: Performed By: #### L ACT ####[address] [address] Daily Progress Note-Samarao n 07-13-2017 Protein mass conc Service: Surgery Sub jective Data:KATHERINE JUDGE is a 82 year old Female who is Hospital Day # 5. Additional Information:Patient remains confused. Nurse states patient attempted to get out of bed lastnight and has been talking to people who aren't there. Had one soft bowelmovement, positive c. dif treated with PO vancomycin. Urine output is good.Wellbutrin, gabapentin, and narcotic pain meds have been stopped. Objective Data: Objective Information:T [id number]/799 6%Date/Time07/13 7: 7: 7: 7: 7:03Range(36.7C - 37.1C ) (82 - 87 ) (18 - 19 ) (121 - 150 )/ (66 - 79 ) (90%- 96% )Highest temp of 37.1 C was recorded at 07/12 15:12 Pain at Rest reported at 07/13 3:37: 4 Physical Exam: Constitutional: Cachectic, patient disoriented to place, no distress, alert andcooperativeEyes: Clear scleraENMT: Lips appear dry, no apparent injury, no lesions seenHead/Neck: Neck supple, no apparent injury, No JVD, trachea midlineRespiratory/Thorax: Patent airways, CTAB, normal breath sounds with good chestexpansion, thorax symmetricCardiovascular: Regular, rate and rhythm, no murmurs, 2+ equal pulses of theextremities, normal S 1and S 2Gastrointestinal: nondistended, soft, non-tender, no rebound tenderness orguarding, no masses palpable, no organomegaly, +BS, midline surgical scarnontender, edematous, and erythematous inferiorlyMusculoskeletal: ROM intact, no joint swelling, weak strengthExtremities: normal extremities, no cyanosis edema, contusions or wounds, noclubbingNeurological: intact senses, motor, weak strengthLymphatic: No significant lymphadenopathyPsychological : ConfusionSkin: Warm and dry, no lesions, no rashes Medication: Medications: ANTI-INFECTIVES: 1. Vancomycin: 125 mg Oral Every 6 Hours CARDIOVASCULAR AGENTS: 1. Lisinopril: 10 mg Oral Daily2. Isosorbide Mononitrate Extended Release: 60 mg Oral Daily3. Metoprolol Tartrate: 50 mg Oral Every 12 Hours4. Furosemide: 40 mg Oral Daily CENTRAL NERVOUS SYSTEM AGENTS: 1. Aspirin Chewable: 81 mg Oral Daily2. oxyCODONE 5 mg - Acetaminophen 325 m tablet(s) Oral Every 4 HoursPRN3. traMADol: 50 mg Oral Every 6 Hours PRN4. Ondansetron Injectable: 4 mg IntraVenous Push Every 6 Hours PRN COAGULATION MODIFIERS: 1. Enoxaparin SubCutaneous: 40 mg SubCutaneous Every 24 Hours2. Clopidogrel: 75 mg Oral Daily GASTROINTESTINAL AGENTS: 1. Pantoprazole: 40 mg Oral Daily GENITOURINARY TRACT AGENTS: 1. Oxybutynin: 5 mg Oral 3 Times a Day METABOLIC AGENTS: 1. Simvastatin: 40 mg Oral At Bedtime NUTRITIONAL PRODUCTS: 1. Potassium Chloride Powder Packet: 40 mEq Oral 2 Times a Day2. Sodium Chloride 0.9% Injectable Flush: 10 mL IntraVenous Flush Every 8Hours and as Needed PRN RESPIRATORY AGENTS: 1. Albuterol 2.5 mg/ 3 mL Nebulizer Soln: 3 mL Inhalation Every 4 HoursPRN TOPICAL AGENTS: 1. Witch Giorgi Topical: 1 application(s) Topical 2 Times a Day Currently Suspended Medications ---- 1. Gabapentin: 800 mg Oral 3 Times a Day2. buPROPion Extended Release (24 hour): 150 mg Oral Every 24 Hours Assessment and Plan: Admitting Dx:Physical deconditioning: Entered Date: 09-Jul-2017 08:41 Additional Dx:Confusion and disorientation: Entered Date: 12-Jul-2017 07:43Clostridium difficile colitis: Entered Date: 10-Jul-2017 12:52Hypomagnesemia: Entered Date: 09-Jul-2017 14:36Acute on chronic diastolic (congestive) heart failure: Entered Date:09-Jul-2017 09:28Hypokalemia: Entered Date: 08-Jul-2017 12:37Pulmonary edema: Entered Date: 06-Jul-2017 07:40Tachypnea: Entered Date: 06-Jul-2017 07:40S/P right hemicolectomy: Entered Date: 03-Jul-2017 00:33Small bowel obstruction: Entered Date: 02-Jul-2017 20:32 Assessment:82-year-old female admitted to skilled bed for physical deconditioningfollowing cecal volvulus s/p right hemicolectomy. 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 with treated with PO vancomycin-appreciate nutrition consult, Dx moderate protein calorie malnutrition Altered Mental Status-will obtain CBC and BMP-will obtain abdominal US-hold narcotic pain medications Signature/Cosignature/Attest ation:Comments/ Additional FindingsINTERMITTENT CONFUSION / INCISION HEALED / GEORGE REMOVED / COLLECTION ON US /WCC NORMAL / PLATELETS ELEVATED / CONTINUE PT/ OT Electronic Signatures:Manny Arana) (Signed 13-Jul-2017 16:51)Authored: Signature/Cosignature/Attest ationCo-Signer: Service, Subjective Data, Objective Data, Assessment and PlanAltagracia Trammell (GLENDA) (Signed 13-Jul-2017 08:03)Authored: Service, Subjective Data, Objective Data, Assessment and Plan Last Updated: 13-Jul-2017 16:51 by Manny Arana) Normal [facility] GLUCOSE-POCTon 07-13-2017 Glucose mass conc 118 mg/dL High 74 - 99 [facility] Comment on above: Result Comment: This assay has not been validated for use with critically ill patients. Clinical correlation or lab draw is recommended. Performed By: #### L ACT ####[facility] [place] [address] RED CELL MORPHOLOGYon 2017 GIANT PLATELETS Few Normal [facility] Comment on above: Performed By: #### L ACT ####[facility] [place] [address] POLYCHROMASIA Mild Normal [facility] Comment on above: Performed By: #### L ACT ####[facility] [place] [address] RBC morphology finding Nom (Bld) See Below Normal [facility] Comment on above: Performed By: #### L ACT ####[address] [place] [address] US ABD ALEXANDER F/Uon 07-13-2017 US ABD ALEXANDER F/U Name: KATHERINE JUDGE STUDY:US ABD ALEXANDER F/U; 07/13/2017 7:55 am INDICATION:Signs/Symptoms: LOWER INCISION SWELLING. COMPARISON:None. ORDERING CLINICIAN:MANNY ARANA TECHNIQUE:Limited ultrasound of left lower quadrant abdominal incisionperformed using a high-resolution transducer. FINDINGS:Lobulated, hypoechoic structure containing nonspecific low-level andnodular echoes noted in the area of the incision measuringapproximately 5.8 x 3.1 x 3.2 cm. IMPRESSION:Complex hypoechoic structure measuring up to 5.8 cm in the area ofleft lower quadrant incision. It is uncertain if this is within ordeep to the abdominal wall musculature. Differential includes abscessand hematoma. Further evaluation with CT recommended as clinicallywarranted.Electron ically signed by: CRYSTAL ROONEY MD Normal [facility] Daily Progress Note-Samarao wilber 07-12-2017 Protein mass conc Consult Type: subseq uent visit/care Service: Surgery Subjective Data:KATHERINE JUDGE is a 82 year old Female who is Hospital Day # 4. HAS BEEN INTERMITTENTLY CONFUSED / STRANGE ORAL MOUTH MOVEMENTS / ON GABAPENTINAND WELLBUTRIN WHICH WAS STOPPED / TAKING PO / HAVING BMS. Objective Data: Objective Information:T SEHPPjS6Gzbcx75.62144778/779 0%Date/Time07/12 7:126/3 7:1263 7:1263 7:1263 7:12Range(37C - 37.4C ) (80 - 101 ) (16 - 18 ) (120 - 143 )/ (73 - 77 ) (90%- 96% ) As of 11-Jul-2017 22:00:00, patient is on 1 L/min of oxygen via nasal cannulawith humidification.Highest temp of 37.4 C was recorded at 07/11 22:00 Pain with Activity reported at 07/11 22:00: 0Pain at Rest reported at 07/11 22:00: 0 Physical Exam: Constitutional: CACHETIC / INTERMITTENTLY CONFUSEDRespiratory/Thorax: Patent airways, CTAB, normal breath soundsCardiovascular: Regular, rate and rhythm, no murmurs,Gastrointestinal: MILDLY distended, soft, non-tender, n0 guarding, no massespalpable, no organomegaly, SWELLING INFERIORLY IN INCISION / NO DRAINAGEMusculoskeletal: WEAKExtremities: normal extremities,Neurological: intact senses, , WEAKLymphatic: No significant lymphadenopathyPsychological : IN Appropriate mood and behavior Assessment and Plan: Admitting Dx:Physical deconditioning: Entered Date: 09-Jul-2017 08:41 Additional Dx:Confusion and disorientation: Entered Date: 12-Jul-2017 07:43Clostridium difficile colitis: Entered Date: 10-Jul-2017 12:52Hypomagnesemia: Entered Date: 09-Jul-2017 14:36Acute on chronic diastolic (congestive) heart failure: Entered Date:09-Jul-2017 09:28Hypokalemia: Entered Date: 08-Jul-2017 12:37Pulmonary edema: Entered Date: 06-Jul-2017 07:40Tachypnea: Entered Date: 06-Jul-2017 07:40S/P right hemicolectomy: Entered Date: 03-Jul-2017 00:33Small bowel obstruction: Entered Date: 02-Jul-2017 20:32 Assessment:PLAN - DC WELLBUTIN AND GABAPENTIN / FOLLOW INCISION / CONTINUE PT /OT / SLOWPROGRESS Nutrition Diagnosis:? Nutrition DiagnosisAgree with dietitian?s assessment and diagnoses as stated.Moderate protein calorie malnutrition related to alteration in GI tractstructure / function and acute illness as evidence by pt with intake < 75%estimated energy requirement x 9 days, mild to moderate muscle and subcutaneousfat loss in multiple locations in pt with UTI, pneumonia, CHF, s/phemicolectomy. Electronic Signatures:Manny Arana) (Signed 12-Jul-2017 07:45)Authored: Service, Subjective Data, Objective Data, Assessment and Plan,Signature/Cosignature/A ttestation Last Updated: 12-Jul-2017 07:45 by Manny Arana) Normal [facility] BASIC METABOLIC PANELon 06-0 Anion gap 3 molar conc 11 mmol/L Normal 10 - 20 [facility] Comment on above: Performed By: #### C MP ####[address] [place] [address] Calcium mass conc 7.5 mg/dL Low 8.6 - 10.3 [facility] Comment on above: Performed By: #### C MP ####[address] [place] [address] Chloride molar conc 101 mmol/L Normal 98 - 107 [facility] Comment on above: Performed By: #### C MP ####[address] [place] [address] Creatinine mass conc 0.67 mg/dL Normal 0.50 - 1.05 [facility] Comment on above: Performed By: #### C MP ####[address] [place] [address] GFR- AM. >60 Normal >60 [facility] Comment on above: Result Comment: CALC ULATIONS OF ESTIMATED GFR ARE PERFORMED USING THE MDRD STUDY EQUATION FOR THE IDMS-TRACEABLE CREATININE METHODS. CLIN CHEM 2007;53:766-72 Performed By: #### C MP ####[facility] [place] [address] GFR-NON AM. >60 Normal >60 [facility] Comment on above: Performed By: #### C MP ####[address] [place] [address] Glucose mass conc 119 mg/dL High 74 - 99 [facility] Comment on above: Performed By: #### C MP ####[address] [place] [address] HCO3 molar conc (Bld) 28 mmol/L Normal 21 - 32 [facility] Comment on above: Performed By: #### C MP ####[address] [address] Potassium molar conc 3.2 mmol/L Low 3.5 - 5.3 [facility] Comment on above: Performed By: #### C MP ####[address] [address] Sodium molar conc 137 mmol/L Normal 136 - 145 [facility] [facility] Comment on above: Performed By: #### C MP ####[id number] [place] [address] Urea nitrogen mass conc 11 mg/dL Normal 6 - 23 [facility] Comment on above: Performed By: #### C MP ####[address] [address] CBCon 07-11-2017 Erythrocyte distribution width Auto Ratio (RBC) 14.3 % Normal 11.5 - 14.5 [facility] Comment on above: Performed By: #### C MP ####[id number] [place] [address] Hematocrit Auto Volume Fraction (Bld) 29.2 % Low 36.0 - 46.0 [facility] Comment on above: Performed By: #### C MP ####[id number] [place] [address] Hemoglobin mass conc (Bld) 9.9 g/dL Low 12.0 - 16.0 [facility] Comment on above: Performed By: #### C MP ####[address] [address] MCHC Auto mass conc (RBC) 33.9 g/dL Normal 32.0 - 36.0 [facility] Comment on above: Performed By: #### C MP ####[address] [address] MCV Auto Entitic volume (RBC) 101 fL High 80 - 100 [facility] Comment on above: Performed By: #### C MP ####[id number] Nucleated RBC/100 WBC Ratio (Bld) 0.2 /100 WBC Abnormal 0.0-0.0 [facility] Comment on above: Performed By: #### C MP ####[place] [address] Platelets Auto #/vol (Bld) 351 10*3/uL Normal 150 - 450 [facility] Comment on above: Performed By: #### C MP ####[place] [address] RBC Auto #/vol (Bld) 2.89 x10E12/L Low 4.00 - 5.20 [facility] Comment on above: Performed By: #### C MP ####[place] [address] WBC Auto #/vol (Bld) 13.8 10*3/uL High 4.4 - 11.3 [facility] Comment on above: Performed By: #### C MP ####[id number] GLUCOSE-POCTon 07-11-2017 Glucose mass conc 113 mg/dL High 74 - 99 [facility] Comment on above: Result Comment: This assay has not been validated for use with critically ill patients. Clinical correlation or lab draw is recommended. Performed By: #### C MP ####[address] [address] MAGNESIUMon 07-11-2017 Magnesium mass conc 1.62 mg/dL Normal 1.60 - 2.40 [facility] Comment on above: Performed By: #### C MP ####[id number] Daily Progress Note-Melly merino 07-10-2017 Protein mass conc Service: Surgery Sub jective Data:KATHERINE JUDGE is a 82 year old Female who is Hospital Day # 2. Additional Information:Patient has not had any further bowel movements despite positive C. dif, on POvancomycin. Nurse reports patient was confused again overnight pain medicationwas switched to Toradol and Percocet made as needed. Objective Data: Objective Information:T [id number]/819 3%Date/Time07/10 6:5507/10 6:5507/10 6:5507/10 6:5507/10 6:55Range(36C - 37.3C ) (82 - 91 ) (16 - 20 ) (111 - 146 )/ (68 - 81 ) (93% -98% )Highest temp of 37.3 C was recorded at 07/10 6:55 Pain at Rest reported at 07/10 3:00: 7 Physical Exam: Constitutional: Cachectic, awake/alert/oriented x3, no distress, alert andcooperativeEyes: Clear scleraENMT: Lips appear dry but improved, no apparent injury, no lesions seenHead/Neck: Neck supple, no apparent injury, No JVD, trachea midlineRespiratory/Thorax: Patent airways, CTAB, normal breath sounds with good chestexpansion, thorax symmetricCardiovascular: Regular, rate and rhythm, no murmurs, 2+ equal pulses of theextremities, normal S 1and S 2Gastrointestinal: mildly distended, soft, non-tender, no rebound tenderness orguarding, no masses palpable, no organomegaly, +BS, midline surgical scar withstaples appears to be healing wellMusculoskeletal: ROM intact, no joint swelling, normal strengthExtremities: normal extremities, no cyanosis edema, contusions or wounds, noclubbingNeurological: alert and oriented x3, intact senses, motor, response andreflexes, normal strengthLymphatic: No significant lymphadenopathyPsychological : Appropriate mood and behaviorSkin: Warm and dry, no lesions, no rashes Medication: Medications: ANTI-INFECTIVES: 1. Vancomycin: 125 mg Oral Every 6 Hours CARDIOVASCULAR AGENTS: 1. Lisinopril: 10 mg Oral Daily2. Isosorbide Mononitrate Extended Release: 60 mg Oral Daily3. Metoprolol Tartrate: 50 mg Oral Every 12 Hours4. Furosemide: 40 mg Oral Daily CENTRAL NERVOUS SYSTEM AGENTS: 1. Aspirin Chewable: 81 mg Oral Daily2. oxyCODONE 5 mg - Acetaminophen 325 m tablet(s) Oral Every 4 HoursPRN3. traMADol: 50 mg Oral Every 6 Hours PRN4. Gabapentin: 800 mg Oral 3 Times a Day5. Ondansetron Injectable: 4 mg IntraVenous Push Every 6 Hours PRN COAGULATION MODIFIERS: 1. Enoxaparin SubCutaneous: 40 mg SubCutaneous Every 24 Hours2. Clopidogrel: 75 mg Oral Daily GASTROINTESTINAL AGENTS: 1. Pantoprazole: 40 mg Oral Daily GENITOURINARY TRACT AGENTS: 1. Oxybutynin: 5 mg Oral 3 Times a Day METABOLIC AGENTS: 1. Simvastatin: 40 mg Oral At Bedtime NUTRITIONAL PRODUCTS: 1. Potassium Chloride Powder Packet: 40 mEq Oral Daily2. Sodium Chloride 0.9% Injectable Flush: 10 mL IntraVenous Flush Every 8Hours and as Needed PRN PSYCHOTHERAPEUTIC AGENTS: 1. buPROPion Extended Release (24 hour): 150 mg Oral Every 24 Hours RESPIRATORY AGENTS: 1. Albuterol 2.5 mg/ 3 mL Nebulizer Soln: 3 mL Inhalation Every 4 HoursPRN TOPICAL AGENTS: 1. Witch Giorgi Topical: 1 application(s) Topical 2 Times a Day Recent Lab Results: Results: I have reviewed these laboratory results: Complete Blood Count [[id number] 04:03:00], Basic Metabolic Panel [Drawn 09-Jul-2017 04:03:00],Magnesium, Serum [Drawn 09-Jul-2017 04:03:00], Clostridium Difficile Toxin, PCR[Drawn 08-Jul-2017 19:03:00]. Assessment and Plan: Additional Dx:S/P right hemicolectomy: Entered Date: 03-Jul-2017 00:33Small bowel obstruction: Entered Date: 02-Jul-2017 20:32 Assessment:82-year-old female admitted for cecal volvulus s/p right hemicolectomy. 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 dif with no diarrhea overnight, on PO vanco-High protein diet-persistent hypokalemia last 3.3, continue to monitor electrolytes Signature/Cosignature/Attest ation:Comments/ Additional FindingsMUCH IMPROVED / CONTINUE RECONDITIONING AND THERAPY / ON PO VANCOMYCIN Electronic Signatures:Manny Arana) (Signed 10-Jul-2017 12:51)Authored: Signature/Cosignature/Attest ationCo-Signer: Service, Subjective Data, Objective Data, Assessment and PlanAltagracia Trammell (GLENDA) (Signed 10-Jul-2017 08:17)Authored: Service, Subjective Data, Objective Data, Assessment and Plan Last Updated: 10-Jul-2017 12:51 by Manny Arana) [facility] Discharge Planning Noteon Discharge Planning Note Discharge Needs Assessment:? Discharge Planning Assessment [id number]? Discharge Planning Assessment Completed byJavier PERALTA Patient Learning:? Factors that Impact Ability to Learnnone(1) Other Factors:? Functional Screen: In the recent/past 2-4 weeks, patient or family havenoticedno issues that require a rehabilitation consult at this time(1) Discharge Needs:? [facility] Planning:Discharge Plannin07/10/17 1453 - SWING BED ASSESSMENT - Discussed plan of care ininterdisciplinary rounds. Lace Score 10. Patient evaluated at bedside. AAOx2-3.Lives with her in a ranch style single family home. DME: caneoccasionally. At baseline, she is independent in ADL's. Per the family she isvery confused at this time and this is not her baseline. Her has shortterm memory loss and is not able to provide care for her when she goes home. PTis anticipating that she will be ready to d/c with [facility] on July 17. Family isconcerned that she will not be able to return home and care for herself at thattime. We discussed options of transfering to community SNF if she still isrequiring skilled care beyond the expected time frame. We will reassess earlynext week for home going needs. Javier PERALTA 07/13/17 1330 Skilled Meeting Assessment: slight confused today, min assist sitto stand, contact guard ambulation with WW 60 feet. Reassessed plan ofdischarge date, changed to 07/21/17 from 07/17/17. Som Chaudhari RNCC 07/15/17 1552 - Discussed plan of care in interdisciplinary rounds. Patientevaluated at bedside this morning with family. [facility]. Referral sent inAllscrpits and PAS completed. Dr. Arana notified, awaiting response. Willcontinue to follow for any transition care needs or changes in current plan. Wesley RNCC 07/17/17 1147 - Discussed plan of care in interdisciplinary rounds. Patientevaluated at bedside this morning. Patient is ready for discharge today. Finalorders sent in [employer]. We discussed transportation options. Patient statedthat she has a membership with [employer], I call the company. [facility] is only for 911 calls. They do not provide communitytransportation. Discussed possible Community [facility] cost of $50 for ambulette and$5.00/mile following. Family is in agreement. Discharge plan: [facility]. Javier Muller RNCC Electronic Signatures:Som Chaudhari (CLIN [place]) (Signed 14-Jul-2017 13:32)Authored: Discharge Planning Wanda Cheung (CLIN [place]) (Signed 17-Jul-2017 11:49)Authored: Discharge Planning Note Last Updated: 17-Jul-2017 11:49 by Wanda Muller (CLIN COOR) References:1. Data Referenced From Admission Risk Screen - Adult 07/09/2017 09:59 AM Normal [facility] Nutrition Therapy-Assessment - -Swing Bedon 07-10-2017 Nutrition Therapy-Assessment - -Swing Bed Assessment Subjective/Objective:Note Type: Assessment -Swing Bed Note Authored by: Registered Dietitian NutritionistPager Number: [phone] Nutrition Note:The patient is a 82 year old Female admitted for rehab. Self referral for swing bed. Per chart: Pt presented to ED on 07/02/17 with abdominal pain and nausea thatbegan 07/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 Pt admitted for surgery, now s/p R hemicolectomy, and stapledileocolonic anastomosis on 07/03/17. Was transferred [facility] acute care.Chest xray on 07/06 showed worsening CHF; IV fluids held and IV Lasix started.Was found with + C.diff on 07/08, started on PO vancom[facility]. [facility]09 for rehab for deconditioning andcontinued electrolyte replacement. Visited pt at beside, pt appeared lethargic, was opening and closing her eyes.Pt reports poor appetite with fair intake, says she did not eat lunch, atecereal with sugar and milk for breakfast, hot tea and pop. Pt requested BoostBreeze, pudding and ice cream, will contact diet office. Per flowsheet, pt ate50% breakfast today, 100% breakfast 07/08, 75% breakfast, 50% lunch, 25% dinneron 07/07. Pt not amenable to cream based ONS. Pt was NPO x 3 days (07/02 to 07/05)Pt on clear liquids x 2 days (07/05 to 07/06)Low fiber / soft (07/07 to 07/09)High protein / high calorie (07/10) . 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:Acute on chronic diastolic (congestive) heart failure:Hypokalemia:Pulmonar y edema:Tachypnea:S/P right hemicolectomy:Small bowel obstruction:NSTEMI (non-ST elevated myocardial infarction):UTI (urinary tract infection), bacterial:Anemia:Lactic acidosis:Leukocytosis, unspecified type:Hypotension (arterial):Pneumonia of right lower lobe due to infectious organism:Acute encephalopathy: Medical History:Gastrocutaneous fistula:Constipation:Ileus:A nemia due to unknown or multiple mechanisms (disorder):Transient ischemic colitis (disorder):Protein malnutrition unspecified (disorder):Hypokalemia (disorder):Magnesium deficiency:Colitis (disorder):Small bowel obstruction (disorder):Acute bowel obstruction: Onset Date: 58-Pqr-6619Ljkshgkiybs abdominal pain (finding): Chronic:Fluid overload pulmonary edema:Clostridium difficile infection:Diarrhea: Other Dx/Proc:Gastrointestinal bleeding: Description: Gastrointestinal bleeding1 Colitis, 2 Abdomen Pain 3 Cholelithiasis: Onset Date: 12-Vey-7647Xzhzt failure: Description: Heart failurePNEUMONIA:Diabetes mellitus: Description: Diabetes mellitusElectrolyte imbalance: Description: Electrolyte imbalancePost CABG: Description: Post CABGCoronary artery disease: Description: Coronary artery diseaseNon ST Elevation Myocardial Infarction (NSTEMI): Description: Non ST ElevationMyocardial Infarction (NSTEMI)Coronary angioplasty/stent (PCI): Description: Coronary angioplasty/stent(PCI)Dyspne a: Description: DyspneaCoronary atherosclerosis: Description: Coronary atherosclerosisLeft heart catheterization: Description: Left heart catheterizationHypotension:S epsis: Description: SepsisVenous thromboembolism: Description: Venous thromboembolism Medical History:Gastrocutaneous fistula:Constipation:Ileus:A nemia due to unknown or multiple mechanisms (disorder):Transient ischemic colitis (disorder):Protein malnutrition unspecified (disorder):Hypokalemia (disorder):Magnesium deficiency:Colitis (disorder):Small bowel obstruction (disorder):Acute bowel obstruction: Onset Date: 16-Jfd-2409Dmxtc bowel obstruction: Objective Information: T [id number]/689 3%Date/Time07/10 14: 14: 14: 14: 14:18Range(36C - 37.3C ) (80 - 85 ) (16 - 20 ) (108 - 146 )/ (68 - 81 ) (93% -97% )Highest temp of 37.3 C was recorded at 07/10 6:55 Pain at Rest reported at 07/10 15:25: 8 Weights07/10 16:10: Weight in lbs ((lbs)) 120.46/1 16:10: BMI (kg/m2) (BMI (kg/m2)) 22.0386 5:00: Weight in kg (Weight (kg)) 49 ---- Intake and Output -----Mn/Dy/Year TimeIntakeOutputNetJun 2017 2:00 [id number] 2017 6:00 qj197Tcs 2017 10:00 pm000 Height/Weight:Height in feet: 5 feetHeight in inches: 2 inch(es)Height in cm: 157.4 centimeter(s)Weight in lbs: 108 pound(s)Weight (kg): 49BMI (kg/m2): 19.778 square meterDBW (kg): 57.3%DBW: 86Weight history/ % weight change: DBW-126 lbs for BMI 23 in adult >65 yearsWeight History:UBW: 50 to 50.1 kg (self reported)-current wt is 97%-98% UBW)07/09/17: 47.8 kg (? accuracy of weight loss in setting of fluid shifts)07/06/17: 54.6 kg07/03/17: 53.8 kg01/02/17: 47.2 kg- No edema per flowsheet, ? weight gain from 12/26 vs fluidshifts in pt with history of malnutrition/ pulmonary edema / heart failureSignificant Weight Change: no Recent Lab Results: Results: I have reviewed these laboratory results: Complete Blood Count 09-Jul-2017 04:03:00 ResultValueWhite Blood Cell Count 12.9 HNucleated Erythrocyte Count 0.2 ARed Blood Cell Count 2.79 LHGB 9.4 LHCT 27.9 LMCV 100MCHC 33.7PLT 274RDW-CV 13.7 Basic Metabolic Panel 09-Jul-2017 04:03:00 ResultValueGlucose, Serum 111 HNA 138K 3.3 LCL 101Bicarbonate, Serum 31Anion Gap, Serum 9 LBUN 11CREAT 0.66GFR-Non >60GFR- >60Calcium, Serum 7.5 L Magnesium, Serum 09-Jul-2017 04:03:00 ResultValueMagnesium, Serum 1.51 L Clostridium Difficile Toxin, PCR 08-Jul-2017 19:03:00 ResultValueClostridium Difficile Toxin, PCR DETECTED Reference Range: Not Detected This assay detects the presence of the tcdB(toxin B) gene via DNA amplification, and results should be interpreted in the context of the patients history and clinical findings. This test cannot be perfo ALab Comment: +CDIFF CALLED TO YUKI SALDANA, 07/09/2017 14:51 Nutrition Labs:Special Chemistry: 03-Jul-2017 10:15, Hemoglobin C1WGdhvnxqzjm A1C, Level5.3 Diagnosis of Diabetes-Adults Non-Diabetic: < or = 5.6% Increased risk for developing diabetes: 5.7-6.4% Diagnostic of diabetes: > or = 6.5%. Monitoring of Diabetes Age (y) Therapeutic Goal (%) Adults: >18 <7.0 Pediatrics: 13-18 <7.5 7-12 <8.0 0- 6 7.5-8.5 [place] [employer]. Diabetes Care 33(S1), Feb 2009.Estimated Average Enjpzmq391 Current Active Medications/PN:buPROPion Extended Release (24 hour), Tablet, Extended Release (WELLBUTRINXL)DOSE = 150 mg Oral Every 24 Hours, 14-Tnd-5133Vldccqvhahg, Tablet (PLAVIX)DOSE = 75 mg Oral Daily, 41-Cyc-2880Lnlsanzjqf SubCutaneous, (LOVENOX)DOSE = 40 mg SubCutaneous Every 24 HoursNotes from Pharmacy: NOTE DOSAGE STRENGTH, 50-Mgk-5150Qdcojtsicp, Tablet (LASIX)DOSE = 40 mg Oral Daily, [address]-4411Kmadieapcv, Capsule (NEURONTIN)DOSE = 800 mg Oral 3 Times a Day, 38-Pjk-9092Vcnzgdxles Mononitrate Extended Release, Tablet, Extended Release (IMDUR)DOSE = 60 mg Oral Daily, 15-Kkz-0664Otpfrosxnr, Tablet (PRINIVIL, ZESTRIL)DOSE = 10 mg Oral Daily, 88-Gef-7148Lpgcqeevkq Tartrate, Tablet (LOPRESSOR)DOSE = 50 mg Oral Every 12 Hours, 85-Zce-8379Mlobfjsedqc Injectable, (ZOFRAN)DOSE = 4 mg IntraVenous Push Every 6 Hours, PRN Nausea & Vomiting, 29-Tub-4355Thptpaxkyz, Tablet (DITROPAN)DOSE = 5 mg Oral 3 Times a Day, 51-Lev-0783marAYZCSV 5 mg - Acetaminophen 325 mg, Tablet (PERCOCET)DOSE = 1 tablet(s) Oral Every 4 Hours, PRN Pain - Mild (1-3), 05-Cot-1260Pbcquqdcpmcu, Enteric Coated Tablet (PROTONIX)DOSE = 40 mg Oral Daily, 80-Tri-5323Hkqblkama Chloride Powder Packet, (K-SHAUN)DOSE = 40 mEq Oral Daily, 19-Frp-6616Dobjynmixtc, Tablet (ZOCOR)DOSE = 40 mg Oral At Bedtime, 75-Kgo-2646Dtejdq Chloride 0.9% Injectable Flush, via Triple Lumen - Arrow BrandVolume = 10 mL IntraVenous Flush Every 8 Hours and as Needed, 51-Ybz-7046jehQRQdr, Tablet (ULTRAM)DOSE = 50 mg Oral Every 6 Hours, PRN Pain - Mod (4-6), 91-Wwv-7335Dcjgcaqhgs, CapsuleDOSE = 125 mg Oral Every 6 Hours, 09-Jul-2017 Nutrition Orders:Oral Nutritional Supplements, RoutineResource BreezeFlavor Preference: [place]; [place], 2 Times a DaySpecial Instructions: Please send Boost Mason orange at breakfast and Ainsley york at dinner, 73-Hxm-1914Jle-Stat 101, Oral - Administer as a scheduled medication. Pour packet into a30 ML medicine cup. Tube Feeding - Standard flush before and afteradministering 3 Times a Day Iqmzwgo8QT (Oral), 95-Nbu-0468Pyej May Participate in Room Service Jacky Braswell, YesOrder entered from Admission Screens., 43-Jsz-8543Kjyu, High Calorie; High Protein, 10-Jul-2017 Food/Nutrition Related History:Change in Oral Intake/Appetite: increase -Diet advanced to High Protein / HighCalorie, pt with fair intakeGI Symptoms: none, +BM x 1 today per flowsheetTime Frame for GI Symptoms Greater Than 2 Weeks: not applicableOral Problems: deniesMobility: bed/chair ridden Skilled Unit ONLY:Appetite/Fluid Intake: fair (50-74%), less than 1500 ml/day, 360 ml fluid x 24hoursFeeding Ability: independent, tray set-up requiredDentition: own/edentulousOral Function: no problem present Food Allergies Comment: shellfish, salmon Nutrition Focused Physical Findings:Muscle Wasting:Temporal: yesShoulder: deferClavicle: deferScapula/Back: deferBiceps/Triceps: yesInterosseous: yesQuadriceps: deferCalf: deferMuscle Comment: mild to moderate temporal, interosseous, bicep/tricep muscleloss Loss of Subcutaneous Fat:Eyes: yesPerioral: yesTriceps: yesChest: deferSubcutaneous Fat Comment: mild orbital, perioral, triceps fat loss; observedhanging skin at triceps Other Physical Findings:Hair: negativeEyes: negativeMouth: negativeNails: negativeSkin: per flowsheet, bruised ecchymoticEdema: none, per flowsheetChange in Metabolic Demand: yes UTI, pneumonia, worsening CHF, Pt s/p surgerySubjective Global Assessment Rating: moderate malnutritionEtiology: acute illness or injury Estimated Needs:kcals/day: 1500 to 1700 kcal/day (30 to 35 kcal/kg actual weight)gms protein/day: 60 to 75 g/day (1.2 to 1.5 g/kg actual weight)mL fluid/day: per physician Nutrition Diagnosis:Diagnosis1 new.Dx: Moderate protein calorie malnutrition.related to alterationin GI tract structure / function and acute illness. as evidenced by pt withintake < 75% estimated energy requirement x 9 days, mild to moderate muscle andsubcutaneous fat loss in multiple locations in pt with UTI, pneumonia, CHF, s/phemicolectomy Additional Assessment Information: Labs Noted:07/09: Glu 111 (H), likely secondary to stressK+ 3.3 (L), Mg 1.51 (L), H/H 9.4/27.9 (L). Nutrition Interventions:Individualized Nutrition Prescription Provided for: diet, vitamins, mineralsDiet Education: Encouraged PO intake, encouraged pt to order favorite foodsDiet Education Provided: -Encouraged PO intake, encouraged pt order favoritefoods Nutrition Goals:Goals: Nutrition Therapy: oral intake greater than 75%, consume prescribedsupplement, adequate po fluid intake, Blood Glucose 80-180 mg/dl, electrolyteswithin normal limits, promote healing, maintain stable weightNutrition Goal Outcomes: -will assess upon follow up Outcomes Summary: Nutrition TherapyProgress: Nutrition Therapy: improvingOutcome Summary: Nutritional Therapy: -Moderate protein calorie malnutrition NUTRITION RECOMMENDATIONS:Recommendati ons:1. Continue High Calorie / High Protein Diet2. Continue Boost Breeze BID (500 kcal / 18 g protein)3. Continue Prostat TID (300 kcal / 45 g protein)4. Boost Pudding once daily (240 kcal / 7 g protein)5. MVI with minerals6. Check weight daily Nutrition Therapy Recommendations:Nutrition Therapy Recommendations: 1. Continue High Calorie / High ProteinDiet2. Continue Boost Breeze BID (500 kcal / 18 g protein)3. Continue Prostat TID (300 kcal / 45 g protein)4. Boost Pudding once daily (240 kcal / 7 g protein)5. MVI with minerals, 6. Check weight daily Dietitian Monitoring and Evaluation Plan:Monitoring and Evaluation Plan: po intake and tolerance, fluid intake/adequacy,vitamin/mine ral intake, digestive function, weight trend, stool output, overallappearance, labsOther Plan: Evaluate nutrition intervention as compared to nutrition goal(s)and estimated nutrient need criteria. Diet Education:Nutrition Education: -Encouraged PO intake, encouraged pt to order favoritefoodsEducation Provided to: patientUnderstanding of Diet: fair, needs reinforcementAnticipated Compliance: fair Electronic Signatures:Silvia Tyler ([place], DEEPA) (Signed 10-Jul-2017 17:38)Authored: Assessment Subjective/Objective, Nutrition Focused PhysicalFindings, Estimated Needs, Nutrition Diagnosis, Nutrition Interventions,Nutrition Goals, Nutrition Recommendations, Dietitian Monitoring and EvaluationPlan, Diet Education Last Updated: 10-Jul-2017 17:38 by Silvia Tyler ([place], DEEPA) Normal [facility] Admission Risk Screen - Adul ton 07-09-2017 Admission Risk Screen - Adult Allergies: Allergies:? Lincocin: Rash? penicillin: Rash? tetracycline: Rash? erythromycin: Rash? Keflex: Syncope? Lunesta: Unknown? penicillin G benzathine: Unknown? Biaxin: Unknown? trazodone: Unknown? Clindamycin Hydrochloride: Unknown? aspirin: GI Bleeding? Vioxx: Bleeding? NSAIDs: GI Bleeding? Mold/Fungi: Unknown? Pollen: Unknown Intolerances:? Ativan: Confusion? Restoril: Confusion Patient Verification:? New W ID Band Applied in my Departmentyes? Patient Identity Verified Bypatient? ID Band FULL Name, include Middle, spelling matches patient's ID used forverificationyes? ID Band Matches Patient ID used for Verficationyes? ID Band MRN Matches EMR MRNyes Advance Directive:? Advance Directive Medicalno? Advance Directive Information Givenpatient/family declined? Advance Directive Mental Healthnot applicable Falls Screen:Type of AssessmentadmissionRisk for Injury Associated with FallnoneFall Risk Conclusionmoderate falls risk with low risk for associated injuryUniversal Safety InterventionsWDL *orient to call system *instruct to call forassistance before getting out of bed *non-slip footwear when patient is out ofbed *call hoffman in reach *personal items and telephone in reach *physically safeenvironment (no spills or clutter) *bed in lowest position with wheels locked*appropriate side rails in place *room/bathroom lighting operational, lightcord in reach *appropriate signage on doorFall and Injury Risk Interventionseducate patient/family for risk for injury(fractures and bleeding) Family Violence Screen:? Are you or have you been threatened or abused physically, emotionally, orsexually by anyone?no? Do you feel UNSAFE going back to the place where you are living?no? Clinical assessment: Are there any apparent signs of injuries/behaviors thatcould be related to abuse/neglectno? Social Service Consult for abuse/neglect needed this visit?no Functional screen:? Functional Screen: In the recent/past 2-4 weeks, patient or family havenoticedno issues that require a rehabilitation consult at this time Learning Assessment (Patient):? Patient is Able to be Assessed for Learningyes? Factors Influencing Readiness to Learnacuteness of illness? Factors that Impact Ability to Learnnone? Devices/Methods Used to Communicatenone? Learning Preferencesverbal instruction? Cultural Considerationsnone? Developmental Considerationsnone? Restoration Considerationsnone Learning Assessment (Other Learner):? Other learner availableno Suicide/Depression Screen:? During the past month, have you often been bothered by feeling down,depressed or hopeless?no? During the past month, have you often had little interest or pleasure indoing things?no? Have you had any thoughts of harming yourself?no? Have you had any thoughts of harming anyone else?no Adult Nutrition Screen:? Have you recently lost weight without tryingno? Have you been eating poorly because of a decreased appetiteno? MST Score0? RiskMST = 0 or 1 Not at risk. Eating well with little or no weight loss? Nutrition Consult needed this visit?no? Can Patient Participate in Room Service?yes, with assistance? Patient requires Paper Dishes/Plastic Utensilsno Pain Screen:? Pain ScalePAIN-AD? Pain Scale Educationteaching provided? Current Pain Level2 = Mild? Acceptable Pain Level5 = Moderate? Expression of Pain (nonverbal)none? Chronic Painno Spiritual Screen:? Are there any cultural, spiritual, scientology practices/values/needs that areimportant for us to know?no CAGE:Is this an injured patient at a Trauma Center ([facility] / [place]): no Vaccinations:Vaccination - Influenza Vaccination Screen:? Is it flu season? (between and )No Vaccination - Pneumonia Vaccination Screen:? Patient has received a previous pneumonia vaccine:yes Moustapha:Skin - Moustapha Scale: ? Moustapha: Sensory Perception (response to environment)(3) slightly limited? Moustapha: Moisture (degree skin exposed to moisture)(3) occasionally moist? Moustapha: Activity (ability to walk)(3) walks occasionally? Moustapha: Mobility (amount/control of body movement)(3) slightly limited? Moustapha: Nutrition (quality of food intake)(3) adequate? Moustapha: Friction and Shear(3) no apparent problem? Moustapha: Score18 ? Skin Intervention Orders (Nursing orders will be generated)elevate heels, upin chair < 1 hr intervals, turn side to side every 2 hrs, assess fortherapeutic equipment, assess pressure points, hygiene care, toilet/ADL every 2hrs awake, toilet/ADL every 4 hrs asleep, educate prevent/treat pressure ulcer Significant Indicatiors:Significant Indicators: Complete Pressure Injury:Pressure Injury Present on Admissionno Electronic Signatures:Antoinette Hernandez (CINTHYA) (Signed 09-Jul-2017 10:07)Authored: Admission Risk Screens, Vaccinations, Moustapha, Pressure Injury Last Updated: 09-Jul-2017 10:07 by Antoinette Hernandez (RN) Normal [facility] BASIC METABOLIC PANELon 05-3 Anion gap 3 molar conc 9 mmol/L Low 10 - 20 [facility] Comment on above: Performed By: #### L IPAS ####[id number] [place] [address] Calcium mass conc 7.5 mg/dL Low 8.6 - 10.3 [facility] Comment on above: Performed By: #### L IPAS ####[address] [place] [address] Chloride molar conc 101 mmol/L Normal 98 - 107 [facility] Comment on above: Performed By: #### L IPAS ####[address] [place] [address] Creatinine mass conc 0.66 mg/dL Normal 0.50 - 1.05 [facility] Comment on above: Performed By: #### L IPAS ####[address] [address] GFR- AM. >60 Normal >60 [facility] Comment on above: Result Comment: CALC ULATIONS OF ESTIMATED GFR ARE PERFORMED USING THE MDRD STUDY EQUATION FOR THE IDMS-TRACEABLE CREATININE METHODS. CLIN CHEM 2007;53:766-72 Performed By: #### L IPAS ####[address] [address] GFR-NON AM. >60 Normal >60 [facility] Comment on above: Performed By: #### L IPAS ####[address] [address] Glucose mass conc 111 mg/dL High 74 - 99 [facility] Comment on above: Performed By: #### L IPAS ####[address] [address] HCO3 molar conc (Bld) 31 mmol/L Normal 21 - 32 [facility] Comment on above: Performed By: #### L IPAS ####[address] [address] Potassium molar conc 3.3 mmol/L Low 3.5 - 5.3 [facility] Comment on above: Performed By: #### L IPAS ####[address] [address] Sodium molar conc 138 mmol/L Normal 136 - 145 [facility] Comment on above: Performed By: #### L IPAS ####[address] [address] Urea nitrogen mass conc 11 mg/dL Normal 6 - 23 [facility] Comment on above: Performed By: #### L IPAS ####[address] [address] CBCon 07-09-2017 Erythrocyte distribution width Auto Ratio (RBC) 13.7 % Normal 11.5 - 14.5 [facility] Comment on above: Performed By: #### L IPAS ####[address] [address] Hematocrit Auto Volume Fraction (Bld) 27.9 % Low 36.0 - 46.0 [facility] Comment on above: Performed By: #### L IPAS ####[address] [address] Hemoglobin mass conc (Bld) 9.4 g/dL Low 12.0 - 16.0 [facility] Comment on above: Performed By: #### L IPAS ####[address] [address] MCHC Auto mass conc (RBC) 33.7 g/dL Normal 32.0 - 36.0 [facility] Comment on above: Performed By: #### L IPAS ####[address] [address] MCV Auto Entitic volume (RBC) 100 fL Normal 80 - 100 [facility] Comment on above: Performed By: #### L IPAS ####[address] [address] Nucleated RBC/100 WBC Ratio (Bld) 0.2 /100 WBC Abnormal 0.0-0.0 [facility] Comment on above: Performed By: #### L IPAS ####[address] [address] Platelets Auto #/vol (Bld) 274 10*3/uL Normal 150 - 450 [facility] Comment on above: Performed By: #### L IPAS ####[address] [address] RBC Auto #/vol (Bld) 2.79 x10E12/L Low 4.00 - 5.20 [facility] Comment on above: Performed By: #### L IPAS ####[address] [address] WBC Auto #/vol (Bld) 12.9 10*3/uL High 4.4 - 11.3 [facility] Comment on above: Performed By: #### L IPAS ####[address] [address] CLOST.DIFF.TOXIN,PCRon 07-09 CLOST.DIFF.TOXIN,PCR DETECTED Abnormal Not Detected [facility] Comment on above: Order Comment: +CDIF F CALLED TO YUKI SALDANA, 07/09/2017 14:51 Result Comment: This assay detects the presence of the tcdB (toxin B) gene via DNA amplification, and results should be interpreted in the context of the patients history and clinical findings. This test cannot be performed on formed stools or used as a test of cure, and should not be performed more than once per 7 days.+CDIFF CALLED TO YUKI SALDANA, 07/09/2017 14:51 Performed By: #### L IPAS ####[place] [address] History and Physicalon 07-09 History and Physical History of Present Illness:HPI:Patient is an 82 y/o female with PMHx of SBO and (s/p ELAP in February 2012),known large hiatal hernia, small vessel colon disease, CAD s/p CABG, diastolicCHF, HTN, HLD, depression, and chronic pain, who presented to the [facility] ED on 07/02/17 with sudden onset of abdominal pain and nauseawithout vomiting. CT showed SBO and cecal volvulus. She was admitted forsurgery. On 07/03/17, she went to the OR and underwent U/S guided placement of L IJtriple lumen catheter, exploratory laparotomy, lysis of adhesions, R colectomy,ileocolonic staple anastomosis, and B/L transversus abdominis plane block. She was left intubated post-op and was admitted to the ICU. That same day, shewas extubated and placed on 3L NC. On 07/05/17 she was transferred to the general medical floor. Cardiology followed due to the hx of HTN, CAD s/p CABG, and HLD. She continuedto receive her metoprolol, lisinopril, and Imdur. She was restarted on ASA andPlavix, and also received Lovenox for DVT prophylaxis. She received [id number] for acute exacerbation of diastolic CHF. Potassium and magnesiumreplacement was started due to hypokalemia and hypomagnesia. Today (07/09/17), she was discharged from the general medical/surgical floor toskilled nursing care for rehabilitation secondary to deconditioning as well ascontinued electrolyte replacement. Comorbidities:? Comorbid Conditionscongestive heart failure, hypertension? Type of Congestive Heart Failurediastolic? CHF Additional Specificitywith hypertension? Acuity of CHFacute on chronic Past Medical/Surgical History: Medical History:Gastrocutaneous fistula:Constipation:Ileus:E xploratory laparotomy:Anemia due to unknown or multiple mechanisms (disorder):Transient ischemic colitis (disorder):Protein malnutrition unspecified (disorder):Hypokalemia (disorder):Magnesium deficiency:Colitis (disorder):Small bowel obstruction (disorder):Acute bowel obstruction: Onset Date: bowel obstruction:Acute bowel obstruction:Generalized abdominal pain (finding): Allergies:? Lincocin: Rash? penicillin: Rash? tetracycline: Rash? erythromycin: Rash? Keflex: Syncope? Lunesta: Unknown? penicillin G benzathine: Unknown? Biaxin: Unknown? trazodone: Unknown? Clindamycin Hydrochloride: Unknown? aspirin: GI Bleeding? Vioxx: Bleeding? NSAIDs: GI Bleeding? Mold/Fungi: Unknown? Pollen: Unknown Intolerances:? Ativan: Confusion? Restoril: Confusion Review of Systems:Constitutional: NEGATIVE: Fever, Chills Respiratory: NEGATIVE: Wheezing, Shortness of Breath Cardiac: NEGATIVE: Chest Pain Gastrointestinal: POSITIVE: Diarrhea, Abdominal Pain; NEGATIVE: Nausea,Vomiting, Constipation Genitourinary: POSITIVE: Frequency Musculoskeletal: POSITIVE: Pain All Other Systems: All other systems reviewed and are negative Objective:Physical Exam: Constitutional: Frail-appearing, awake, alert, in no acute distressEyes: Clear scleraENMT: Oral mucous membranes appear dryHead/Neck: Neck suppleRespiratory/Thorax: No increased work of breathingCardiovascular: Regular rate and rhythmGastrointestinal: S/p exploratory laparotomy and R colectomy, mildly distended,mildly tender at incision, no rebound tenderness or guarding, positive bowelsoundsMusculoskeletal: Diminished overall strengthNeurological: Alert, symmetric facies, no slurring of speechPsychological: Appropriate mood and behaviorSkin: Warm, dry, s/p exploratory laparotomy and R colectomy Medications: Medications: CARDIOVASCULAR AGENTS: 1. Lisinopril: 10 mg Oral Daily2. Isosorbide Mononitrate Extended Release: 60 mg Oral Daily3. Metoprolol Tartrate: 50 mg Oral Every 12 Hours4. Furosemide: 40 mg Oral Daily CENTRAL NERVOUS SYSTEM AGENTS: 1. Aspirin Chewable: 81 mg Oral Daily2. oxyCODONE 5 mg - Acetaminophen 325 m tablet(s) Oral Every 4 HoursPRN3. traMADol: 50 mg Oral Every 6 Hours PRN4. Gabapentin: 800 mg Oral 3 Times a Day5. Ondansetron Injectable: 4 mg IntraVenous Push Every 6 Hours PRN COAGULATION MODIFIERS: 1. Enoxaparin SubCutaneous: 40 mg SubCutaneous Every 24 Hours2. Clopidogrel: 75 mg Oral Daily GASTROINTESTINAL AGENTS: 1. Pantoprazole: 40 mg Oral Daily GENITOURINARY TRACT AGENTS: 1. Oxybutynin: 5 mg Oral 3 Times a Day METABOLIC AGENTS: 1. Simvastatin: 40 mg Oral At Bedtime NUTRITIONAL PRODUCTS: 1. Magnesium Oxide: 400 mg Oral 2 Times a Day2. Potassium Chloride Powder Packet: 40 mEq Oral Daily3. Sodium Chloride 0.9% Injectable Flush: 10 mL IntraVenous Flush Every 8Hours and as Needed PRN PSYCHOTHERAPEUTIC AGENTS: 1. buPROPion Extended Release (24 hour): 150 mg Oral Every 24 Hours RESPIRATORY AGENTS: 1. Albuterol 2.5 mg/ 3 mL Nebulizer Soln: 3 mL Inhalation Every 4 HoursPRN TOPICAL AGENTS: 1. Witch Giorgi Topical: 1 application(s) Topical 2 Times a Day Recent Lab Results: Results: I have reviewed these laboratory results: Complete Blood Count Trending View [id number] 04:03:00 08-Jul-2017 07:37:00 07-Jul-2017 04:53:00 06-Jul-2017 08:19:00White Blood Cell Count12.9 H 8.8 5.2 3.5 LNucleated Erythrocyte Count0.2 A 0.2 A Red Blood Cell Count2.79 L 2.65 L 2.49 L 2.60 LHGB9.4 L 9.0 L 8.6 L 9.0 LHCT27.9 L 26.5 L 25.0 L 26.2 UMTU159 100 100 101 HMCHC33.7 34.0 34.4 34.4ICO482 245 197 190RDW-CV13.7 13.6 13.2 13.7 Basic Metabolic Panel Trending View [id number] 04:03:00 08-Jul-2017 07:37:00 07-Jul-2017 04:53:00Glucose, Wbuhd783 H 108 H 105 BPA722 137 140K3.3 L 3.2 L 2.6 LGAM356 98 98Bicarbonate, Serum31 32 34 HAnion Gap, Serum9 L 10 67UFZ41 11 05VTFSA4.66 0.66 0.62GFR-Non >60 >60 >60GFR->60 >60 >60Calcium, Serum7.5 L 7.6 L 7.6 LLab Comment: Samples collected at 0554 07/08/17. Potassium Called- RB Christen Griffin on Med Surg, 07/07/2017 05:38 Magnesium, Serum Trending View [id number] 04:03:00 08-Jul-2017 05:30:00 07-Jul-2017 04:53:00Magnesium, Serum1.51 L 1.96 1.48 L Blood Gas, Arterial Trending View [id number] 05:10:00 06-Jul-2017 15:15:00pH, Arterial7.54 H 7.51 HpCO2, Vfvtkhcz29 40pO2, Cizawubh86 L 51 LPatient-Dykhzzhmrwv28.0 37.3HPL426 28SO2, Tmrttpeu58 93 LBase Excess-Blood11.5 H 8.2 HBicarbonate, Calculated, Bcocwpja73.1 H 31.9 HSite of Arterial PunctureLEFT BRACHIAL LEFT BRACHIALAllen's Test (Collateral Circulation)NON-APPLICABLE NON-APPLICABLE Urinalysis 06-Jul-2017 12:08:00 ResultValueColor, Urine YELLOW Reference Range: STRAW,YELLOWAppearance, Urine CLEARSpecific Max, Urine 1.008pH, Urine 5.0Protein, Urine NEGATIVEGlucose, Urine NEGATIVEBlood, Urine MODERATE(2+) AKetones, Urine 5(Trace) ABilirubin, Urine NEGATIVEUrobilinogen, Urine <2.0Nitrite, Urine NEGATIVELeukocyte Esterase, Urine TRACE A Urinalysis, Microscopic 06-Jul-2017 12:08:00 ResultValueWhite Cells 0-5Red Blood Cells 0-5Epithelial Cells, Squamous FEWEpithelial Cells, Transitional FEWBacteria, Urine 1+ AMucous 1+Hyaline Casts 1+ A Brain Natriuretic Peptide 06-Jul-2017 05:45:00 ResultValueBrain Natriuretic Peptide 760 H Radiology Results: Results: Conclusion:CONCLUSIONS: 1. The left ventricular systolic function is hyperdynamic with a 65-70%estimated ejection fraction. 2. Spectral Doppler shows a pseudonormal pattern of left ventricular diastolicfilling. 3. The left atrium is moderately dilated. 4. There is mild to moderate tricuspid regurgitation. 5. Mild aortic valve stenosis. 6. There is mild aortic valve regurgitation. 7. Moderately elevated pulmonary artery pressure.QUANTITATIVE DATA SUMMARY:2D MEASUREMENTS: Normal Ranges:Ao Root d: 2.40 cm (2.0-3.7cm)LAs: 2.60 cm (2.7-4.0cm)IVSd: 1.28 cm (0.6-1.1cm)LVPWd: 1.20 cm (0.6-1.1cm)LVIDd: 3.86 cm (3.9-5.9cm)LVIDs: 2.42 cmLV Mass Index: 118.5 g/m2LV % FS 37.3 %LA VOLUME: Normal Ranges:LA Vol A4C: 71.2 ml (22+/-6mL/m2)LA Vol A2C: 58.5 mlLA Vol BP: 67.3 mlLA Vol Index A4C: 46.3ml/m2LA Vol Index A2C: 38.0 ml/m2LA Vol Index BP: 43.8 ml/m2LA Area A4C: 22.2 cm2LA Area A2C: 19.3 cm2LA [place] A4C: 5.9 cmLA [place] A2C: 5.4 cmLA Volume Index: 40.5 ml/m2RA VOLUME BY A/L METHOD: Normal Ranges:RA Vol A4C: 17.8 ml (8.3-19.5ml)RA Vol Index A4C: 11.5 ml/m2RA Area A4C: 9.6 cm2RA [place] A4C: 4.4 cmM-MODE MEASUREMENTS: Normal Ranges:Ao Root: 2.10 cm (2.0-3.7cm)LAs: 3.50 cm (2.7-4.0cm)AORTA MEASUREMENTS: Normal Ranges:Asc Ao, d: 2.60 cm (2.1-3.4cm)Ao Arch: 2.60 cm (2.0-3.6cm)LV SYSTOLIC FUNCTION BY 2D PLANIMETRY (MOD): Normal Ranges:EF-A4C View: 66.7 % (>55%)EF-A2C View: 61.0 %EF-Biplane: 62.3 %LV DIASTOLIC FUNCTION: Normal Ranges:MV Peak E: 1.30 m/s (0.7-1.2 m/s)MV Peak A: 1.40 m/s (0.42-0.7 m/s)E/A Ratio: 0.93 (1.0-2.2)MV lateral e' 0.13 m/sMV medial e' 0.12 m/sMV A Dur: 148.00 msecPulmV Sys Tiffany: 81.60 cm/sPulmV Man Tiffany: 65.40 cm/sPulmV S/D Tiffany: 1.20PulmV A Revs Tiffany: 31.90 cm/sPulmV A Revs Dur: 120.00 msecMITRAL VALVE: Normal Ranges:MV DT: 208 msec (150-240msec)MITRAL INSUFFICIENCY: Normal Ranges:dP/dt: 606 mmHg/s (>1200mmHg/sec)AORTIC VALVE: Normal Ranges:AoV Vmax: 2.88 m/s (<1.7m/s)AoV Peak P.2 mmHg (<20mmHg)AoV Mean P.0 mmHg (1.7-11.5mmHg)LVOT Max Tiffany: 1.30 m/s (<1.1m/s)AoV VTI: 60.30 cm (18-25cm)LVOT VTI: 28.80 cmLVOT Diameter: 1.80 cm (1.8-2.4cm)AoV Area, VTI: 1.22 cm2 (2.5-5.5cm2)AoV Area,Vmax: 1.15 cm2 (2.5-4.5cm2)AoV Dimensionless Index: 0.48RIGHT VENTRICLE:RV 1 3.77 cmRV 2 3.58 cmRV 3 6.68 cmTAPSE: 18.6 mmRV s' 0.20 m/sTRICUSPID VALVE/RVSP: Normal Ranges:Peak TR Velocity: 3.45 m/sRV Syst Pressure: 52.6 mmHg (< 30mmHg)IVC Diam: 1.26 cmPULMONIC VALVE: Normal Ranges:PV Max Tiffany: 1.5 m/s (0.6-0.9m/s)PV Max P.8 mmHgPIEDV: 1.72 m/sPADP: 16.8 mmHgPulmonary Veins:PulmV A Revs Dur: 120.00 msecPulmV A Revs Tiffany: 31.90 cm/sPulmV Man Tiffany: 65.40 cm/sPulmV S/D Tiffany: 1.20PulmV Sys Tiffany: 81.60 cm/s Echocardiogram [Jul 08 2017 11:10AM] Impression: No significant change in parahilar and bibasilar opacities, greateron the right. Left central venous line tip is unchanged in positionlikely in the distal brachiocephalic vein pointing laterally andcephalad. Xray Chest 1 View [Jul 07 2017 9:14AM] Impression: No evidence of acute cortical ischemia or intracranial hemorrhage.Chronic changes of volume loss and small vessel ischemic disease. No evidence of intracranial hemorrhage or displaced skull fracture. 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 Large hiatal hernia containing the stomach and pancreas. The stomachdemonstrates organo-axial orientation without evidence forobstructive volvulus at the esophageal hiatus. Colonic diverticulosis. Cholelithiasis. CT Abdomen and Pelvis with Contrast [Jul 02 2017 7:20PM] Assessment and Plan:Assessment: 82 y/o female with PMHx of SBO and (s/p ELAP in February 2012), known largehiatal hernia, small vessel colon disease, CAD s/p CABG, diastolic CHF, HTN,HLD, depression, and chronic pain, who presented to the [facility] ED on 07/02/17 with sudden onset of abdominal pain and nausea withoutvomiting. CT showed SBO and cecal volvulus. She was admitted for surgery. On07/03/17, she went to the OR and underwent U/S guided placement of L IJ triplelumen catheter, exploratory laparotomy, lysis of adhesions, R colectomy,ileocolonic staple anastomosis, and B/L transversus abdominis plane block. On07/09/17, she was discharged from the general medical/surgical floor to skilledursing care for rehabilitation secondary to deconditioning as well ascontinued electrolyte replacement. # Physical Deconditioning- Admitted for fdc care, rehabilitation- PT/OT # S/p R Colectomy- Pain management: Continue home percocet q4h PRN mild pain, ordered Wkiqbohls0m PRN for moderate pain. D/C'd morphine and Dilaudid.- Protonix 40mg daily- Zofran 4mg q6h PRN nausea- Low fiber, soft diet with oral nutrition supplements # Hypokalemia- Potassium chloride powder packet 40 mEq daily- 2 doses of potassium chloride ER today # Hypomagnesemia- Mag-Ox 400mg 2 doses today # Hx CAD, HTN, HLD- Continue metoprolol tartrate 50mg q12h- Continue lisinopril 10mg- Continue simvastatin 40mg bedtime- Continue Imdur 60mg daily- Continue ASA 81mg daily- Continue Plavix 75mg daily # CHF- Furosemide 40mg PO daily # Depression- Buproprion ER 150mg q24h DVT Prophylaxis: Lovenox 40mg subcutaneous q24h Mike Olson [facility], PGY-1 Signatures/Attestation/Certi fication:Attending Provider ? Inpatient Certification StatementI certify that SNFservices are required to be given on an inpatient basis because of the abovenamed patient's need for fdc care on a continuing basis for thecondition(s) for which he/she was receiving inpatient hospital services priorto his/her transfer to the SNF. Electronic Signatures:Manny Arana) (Signed 09-Jul-2017 14:37)Authored: Signatures/Attestation/Certi ficationCo-Signer: History of Present Illness, Past Medical/Surgical History,Assessment and Plan, Signatures/Attestation/Certi Mike Velasquez (Resident)) (Signed 09-Jul-2017 09:56)Authored: History of Present Illness, Comorbidities, Past Medical/SurgicalHistory, Allergies, Review of Systems, Objective, Assessment and Plan,Signatures/Attestation/ Certification Last Updated: 09-Jul-2017 14:37 by Manny Arana) Normal [facility] MAGNESIUMon 07-09-2017 Magnesium mass conc 1.51 mg/dL Low 1.60 - 2.40 [facility] Comment on above: Performed By: #### L IPAS ####[id number] [place] [address] Patient Profile - Adult v2on 07-09-2017 Protein mass conc Profile:Initial Info :How to be AddressedNaomi(1)Spoken Language PreferredEnglish (1)Are you currently using the Personal Electronic Health Record or The Runthrough(1)Stated Reason for Admissioninto muscle sickArrived [facility] carePatient BelongingsnoneMedications Brought to [facility] General Health:Weight in kg47.7 kilogram(s)Weight in mlv741.1 pound(s)Height in feet5 feetHeight in inches5 inch(es)Height in cm165.1 centimeter(s)BMI (kg/m2)17.499 square meterWeight Methodactual (measured)Scale TypebedHeight Methodstated [facility] Based Care:How would you like to participate in your care?talk to me and my husbandWhat is the number one concern for you during this hospitalization?to feelbetterWhat is the most important thing we can do to support you during thishospitalization?make me betterIs there anything we need to know to best care for you?no Substance:Current or Former Substance Use never: Cigarette/Tobacco(1), Alcohol(1),Street Drugs(1) Health Mgmt:Symptoms/Conditions Managed at [facility] Relationship/Environ:Primary Source of Support/ComfortspouseLives WithspouseLiving ArrangementshouseResource/En vironmental ConcernsnoneAnticipated Transition TohomeServices Anticipated at TransitionnoneSignificant IndicatorsComplete Information Review:? Allergies, Home Meds and Significant Events have been Reviewed and Verifiedwith Patient/Familyyes ALLERGY, INTOLERANCE, ADVERSE EVENT: Allergies:? Lincocin: Drug, Rash, Active? penicillin: Drug, Rash, Active? tetracycline: Drug, Rash, Active? erythromycin: Drug, Rash, Active? Keflex: Drug, Syncope, Active? Lunesta: Drug, Unknown, Active? penicillin G benzathine: Drug, Unknown, Active? Biaxin: Drug, Unknown, Active? trazodone: Drug, Unknown, Active? Clindamycin Hydrochloride: Drug, Unknown, Active? aspirin: Drug, GI Bleeding, Active? Vioxx: Drug, Bleeding, Active? NSAIDs: Drug Category, GI Bleeding, Active? Mold/Fungi: Environment, Unknown, Active? Pollen: Environment, Unknown, Active Intolerances:? Ativan: Drug, Confusion, Active? Restoril: Drug, Confusion, Active Electronic Signatures:Antoinette Hernandez (RN) (Signed 09-Jul-2017 10:29)Authored: Profile, Additional Information Last Updated: 09-Jul-2017 10:29 by Antoinette Hernandez (RN) References:1. Data Referenced From Patient Profile - Adult v2 07/02/2017 8:49 PM Normal [facility] BASIC METABOLIC PANELon 05-3 Anion gap 3 molar conc 10 mmol/L Normal 10 - 20 [facility] Comment on above: Order Comment: Sampl es collected at [facility] 07/08/17. Performed By: #### U AMIC ####[address] [address] Calcium mass conc 7.6 mg/dL Low 8.6 - 10.3 [facility] Comment on above: Order Comment: Sampl es collected at [facility] 07/08/17. Performed By: #### U AMIC ####[address] [address] Chloride molar conc 98 mmol/L Normal 98 - 107 [facility] Comment on above: Order Comment: Sampl es collected at [facility] 07/08/17. Performed By: #### U AMIC ####[address] [address] Creatinine mass conc 0.66 mg/dL Normal 0.50 - 1.05 [facility] Comment on above: Order Comment: Sampl es collected at [facility] 07/08/17. Performed By: #### U AMIC ####[address] [address] GFR- AM. >60 Normal >60 [facility] [facility] Comment on above: Order Comment: Sampl es collected at [facility] 07/08/17. Result Comment: CALC ULATIONS OF ESTIMATED GFR ARE PERFORMED USING THE MDRD STUDY EQUATION FOR THE IDMS-TRACEABLE CREATININE METHODS. CLIN CHEM 2007;53:766-72 Performed By: #### U AMIC ####[address] [address] GFR-NON AM. >60 Normal >60 [facility] Comment on above: Order Comment: Sampl es collected at [facility] 07/08/17. Performed By: #### U AMIC ####[address] [address] Glucose mass conc 108 mg/dL High 74 - 99 [facility] Comment on above: Order Comment: Sampl es collected at [facility] 07/08/17. Performed By: #### U AMIC ####[address] [address] HCO3 molar conc (Bld) 32 mmol/L Normal 21 - 32 [facility] Comment on above: Order Comment: Sampl es collected at [facility] 07/08/17. Performed By: #### U AMIC ####[address] [address] Potassium molar conc 3.2 mmol/L Low 3.5 - 5.3 [facility] Comment on above: Order Comment: Sampl es collected at [facility] 07/08/17. Performed By: #### U AMIC ####[address] [address] Sodium molar conc 137 mmol/L Normal 136 - 145 [facility] Comment on above: Order Comment: Sampl es collected at [facility] 07/08/17. Performed By: #### U AMIC ####[address] [address] Urea nitrogen mass conc 11 mg/dL Normal 6 - 23 [facility] Comment on above: Order Comment: Sampl es collected at [facility] 07/08/17. Performed By: #### U AMIC ####[address] [address] CBCon 07-08-2017 Erythrocyte distribution width Auto Ratio (RBC) 13.6 % Normal 11.5 - 14.5 [facility] Comment on above: Performed By: #### U AMIC ####[address] [address] Hematocrit Auto Volume Fraction (Bld) 26.5 % Low 36.0 - 46.0 [facility] Comment on above: Performed By: #### U AMIC ####[address] [address] Hemoglobin mass conc (Bld) 9.0 g/dL Low 12.0 - 16.0 [facility] Comment on above: Performed By: #### U AMIC ####[address] [place] [address] MCHC Auto mass conc (RBC) 34.0 g/dL Normal 32.0 - 36.0 [facility] Comment on above: Performed By: #### U AMIC ####[address] [address] MCV Auto Entitic volume (RBC) 100 fL Normal 80 - 100 [facility] Comment on above: Performed By: #### U AMIC ####[address] [place] [address] Nucleated RBC/100 WBC Ratio (Bld) 0.2 /100 WBC Abnormal 0.0-0.0 [facility] Comment on above: Performed By: #### U AMIC ####[address] [place] [address] Platelets Auto #/vol (Bld) 245 10*3/uL Normal 150 - 450 [facility] Comment on above: Performed By: #### U AMIC ####[address] [address] RBC Auto #/vol (Bld) 2.65 x10E12/L Low 4.00 - 5.20 [facility] Comment on above: Performed By: #### U AMIC ####[address] [address] WBC Auto #/vol (Bld) 8.8 10*3/uL Normal 4.4 - 11.3 [facility] Comment on above: Performed By: #### U AMIC ####[address] [address] Daily Progress Note-Melly n 07-08-2017 Protein mass conc Service: Surgery Sub jective Data:KATHERINE JUDGE is a 82 year old Female who is Hospital Day # 7 and POD #5 forUS GUIDED PLACEMENT LEFT IJ TLC / ELAP / ANDREIA / RIGHT COLECTOMY / STAPLEDILEOCOLONIC ANASTAMOSIS / BILATERAL TAP BLOCK. Additional Information:Patient reportedly had some confusion overnight. Patient states she was justtrying to get ahold of her . Patient had one large brown loose stoolovernight. Objective Data: Objective Information:T [id number]/729 6%Date/Time07/08 6: 6: 6: 6: 6:40Range(36.4C - 37.2C ) (78 - 94 ) (18 - 18 ) (148 - 158 )/ (72 - 85 ) (94%- 97% )Highest temp of 37.2 C was recorded at 07/07 21:30 Pain with Activity reported at 07/07 22:32: 8Pain at Rest reported at 07/07 22:32: 8 Physical Exam: Constitutional: Cachectic, alert, awake, oriented, lying in bed in no apparentdistressEyes: clear scleraENMT: Mucous membranes dry, no apparent injury, no lesions seenHead/Neck: Left IJ triple lumen catheter in place, neck supple, no apparentinjury, No JVD, trachea midlineRespiratory/Thorax: Patent airways, CTAB, normal breath sounds with good chestexpansion, thorax symmetricCardiovascular: Regular, rate and rhythm, no murmurs, 2+ equal pulses of theextremities, normal S 1and S 2Gastrointestinal: Mildly distended, soft, mild tenderness at incision, norebound tenderness or guarding, no masses palpable, NABSMusculoskeletal: Weak strength, no joint swellingExtremities: normal extremities, no cyanosis edema, contusions or wounds, noclubbingNeurological: Intact senses, weak strengthLymphatic: No significant lymphadenopathyPsychological : Appropriate mood and behaviorSkin: Warm and dry, no lesions, no rashes. Post-operative incision midlineabdomen appears to be healing well without drainage or erythema. Recent Lab Results: Results: I have reviewed these laboratory results: Basic Metabolic Panel [[id number] 07:37:00]. Assessment and Plan: Admitting Dx:Cecal volvulus: Entered Date: 02-Jul-2017 20:32 Additional Dx:Hypokalemia: Entered Date: 08-Jul-2017 12:37Pulmonary edema: Entered Date: 06-Jul-2017 07:40Tachypnea: Entered Date: 06-Jul-2017 07:40S/P right hemicolectomy: Entered Date: 03-Jul-2017 00:33Anemia: Entered Date: 26-Dec-2016 19:03 Assessment:82-year-old female admitted for cecal volvulus s/p right hemicolectomy. Cecal volvulus (resolved) s/p right hemicolectomy-patient passing flatus, bowel sounds present. Patient had large brown loosestool overnight.-Low-fiber diet-Continue to monitor electrolytes Signature/Cosignature/Attest ation:Comments/ Additional Findingsreplace potassium / continue by mouth diet / DC planning am Electronic Signatures:Manny Arana) (Signed 08-Jul-2017 12:42)Authored: Objective Data, Assessment and Plan,Signature/Cosignature/A ttestationCo-Signer: Service, Subjective Data, Objective Data, Assessment and PlanAltagracia Trammell (GLENDA) (Signed 08-Jul-2017 12:05)Authored: Service, Subjective Data, Objective Data, Assessment and Plan Last Updated: 08-Jul-2017 12:42 by Manny Arana) Normal [facility] HEMOGLOBIN A1Con 07-08-2017 Glucose mass conc 105 mg/dL Normal [facility] Comment on above: Performed By: #### L IPAS ####[address] [place] [address] Hemoglobin A1c/Hemoglobin.total mass fraction (Bld) 5.3 % Normal [facility] Comment on above: Result Comment: Diag nosis of Diabetes-Adults Non-Diabetic: < or = 5.6% Increased risk for developing diabetes: 5.7-6.4% Diagnostic of diabetes: > or = 6.5%. Monitoring of Diabetes Age (y) Therapeutic Goal (%) Adults: >18 <7.0 Pediatrics: 13-18 <7.5 7-12 <8.0 0- 6 7.5-8.5 [employer] [place]. Diabetes Care 33(S1), Feb 2009. Performed By: #### L IPAS ####[address] [place] [address] MAGNESIUMon 07-08-2017 Magnesium mass conc 1.96 mg/dL Normal 1.60 - 2.40 [facility] Comment on above: Performed By: #### U AMIC ####[facility] [place] [address] ARTERIAL BLOOD GASon 018 JACKIE'S TEST[COLLATERAL CIRCULATION] NON-APPLICABLE Normal [facility] Comment on above: Performed By: #### U AMIC ####[address] [place] [address] SITE OF ARTERIAL PUNCTURE LEFT BRACHIAL Normal [facility] Comment on above: Performed By: #### U AMIC ####[address] [address] BASE EXCESS-BLOOD 11.5 mmol/L High -2.0 - 3.0 [facility] Comment on above: Performed By: #### U AMIC ####[address] [address] FIO2 36 % Normal [facility] Comment on above: Performed By: #### U AMIC ####[address] [address] Oxygen ppres (BldA) 70 mm[Hg] Low 85 - 95 [facility] Comment on above: Performed By: #### U AMIC ####[address] [address] PCO2 41 mmHg Normal 38 - 42 [facility] Comment on above: Performed By: #### U AMIC ####[address] [address] RBC Auto #/vol (Bld) 35.1 mmol/L High 22.0 - 26.0 [facility] Comment on above: Performed By: #### U AMIC ####[address] [address] SO2 97 % Normal 94 - 100 [facility] Comment on above: Performed By: #### U AMIC ####[address] [address] pH (Bld) 7.54 [pH] High 7.38 - 7.42 [facility] Comment on above: Performed By: #### U AMIC ####[address] [address] BASIC METABOLIC PANELon 05-2 Anion gap 3 molar conc 11 mmol/L Normal 10 - 20 [facility] Comment on above: Order Comment: Josselyn dowd Called- RB toNimannifer Elias on Med Surg, 07/07/2017 05:38 Performed By: #### U A ####[address] [address] Calcium mass conc 7.6 mg/dL Low 8.6 - 10.3 [facility] Comment on above: Order Comment: Josselyn dowd Called- RB toJennifer Elias on Med Surg, 07/07/2017 05:38 Performed By: #### U A ####[address] [address] Chloride molar conc 98 mmol/L Normal 98 - 107 [facility] Comment on above: Order Comment: Josselyn dowd Called- RB toJennifer Elias on Med Surg, 07/07/2017 05:38 Performed By: #### U A ####[place] [address] Creatinine mass conc 0.62 mg/dL Normal 0.50 - 1.05 [facility] Comment on above: Order Comment: Josselyn dowd Called- RB toNimannifer Elias on Med Surg, 07/07/2017 05:38 Performed By: #### U A ####[address] [address] GFR- AM. >60 Normal >60 [facility] Comment on above: Order Comment: Josselyn dowd Called- RB toNimannifer Elias on Med Surg, 07/07/2017 05:38 Result Comment: CALC ULATIONS OF ESTIMATED GFR ARE PERFORMED USING THE MDRD STUDY EQUATION FOR THE IDMS-TRACEABLE CREATININE METHODS. CLIN CHEM 2007;53:766-72 Performed By: #### U A ####[address] [address] GFR-NON AM. >60 Normal >60 [facility] Comment on above: Order Comment: Josselyn dowd Called- RB toNimannifer Elias on Med Surg, 07/07/2017 05:38 Performed By: #### U A ####[address] [place] [address] Glucose mass conc 105 mg/dL High 74 - 99 [facility] Comment on above: Order Comment: Josselyn dowd Called- RB toJennifer Elias on Med Surg, 07/07/2017 05:38 Performed By: #### U A ####[address] [address] HCO3 molar conc (Bld) 34 mmol/L High 21 - 32 [facility] Comment on above: Order Comment: Josselyn dowd Called- RB toJennifer Elias on Med Surg, 07/07/2017 05:38 Performed By: #### U A ####[address] [address] Potassium molar conc 2.6 mmol/L Critically low 3.5 - 5.3 [facility] Comment on above: Order Comment: Josselyn dowd Called- RB toJennifer Elias on Med Surg, 07/07/2017 05:38 Result Comment: Hafsa barbosa Called- RB toJennifer Elias on Med Surg, 07/07/2017 05:38 Performed By: #### U A ####[address] [address] Sodium molar conc 140 mmol/L Normal 136 - 145 [facility] Comment on above: Order Comment: Josselyn dowd Called- RB toJennifer Elias on Med Surg, 07/07/2017 05:38 Performed By: #### U A ####[address] [address] Urea nitrogen mass conc 11 mg/dL Normal 6 - 23 [facility] Comment on above: Order Comment: Josselyn dowd Called- RB toJennifer Elias on Med Surg, 07/07/2017 05:38 Performed By: #### U A ####[address] [address] CBCon 07-07-2017 Erythrocyte distribution width Auto Ratio (RBC) 13.2 % Normal 11.5 - 14.5 [facility] Comment on above: Performed By: #### U A ####[address] [address] Hematocrit Auto Volume Fraction (Bld) 25.0 % Low 36.0 - 46.0 [facility] Comment on above: Performed By: #### U A ####[address] [address] Hemoglobin mass conc (Bld) 8.6 g/dL Low 12.0 - 16.0 [facility] Comment on above: Performed By: #### U A ####[address] [address] MCHC Auto mass conc (RBC) 34.4 g/dL Normal 32.0 - 36.0 [facility] Comment on above: Performed By: #### U A ####[address] [address] MCV Auto Entitic volume (RBC) 100 fL Normal 80 - 100 [facility] Comment on above: Performed By: #### U A ####[address] [address] Platelets Auto #/vol (Bld) 197 10*3/uL Normal 150 - 450 [facility] Comment on above: Performed By: #### U A ####[address] [address] RBC Auto #/vol (Bld) 2.49 x10E12/L Low 4.00 - 5.20 [facility] Comment on above: Performed By: #### U A ####[address] [address] WBC Auto #/vol (Bld) 5.2 10*3/uL Normal 4.4 - 11.3 [facility] Comment on above: Performed By: #### U A ####[address] [address] CHEST 1 VIEWon 07-07-2017 CHEST 1 VIEW Name: KATHERINE JUDGE STUDY:CHEST 1 VIEW; 07/07/2017 5:20 am INDICATION:Signs/Symptoms: HYPOXIA. COMPARISON:07/03/2017 and 07/06/2017 ORDERING CLINICIAN:MANNY ARANA FINDINGS:A single AP portable radiograph of the chest was obtained. Mediansternotomy wires. Left central venous line is unchanged in positionwith the tip pointed laterally and cephalad, likely in the distalbrachiocephalic vein. Elevated right hemidiaphragm and large gastrichernia.. Parahilar and bibasilar opacities are without significantchange. No visible pneumothorax. The cardiac silhouette appearsgrossly stable IMPRESSION:No significant change in parahilar and bibasilar opacities, greateron the right. Left central venous line tip is unchanged in positionlikely in the distal brachiocephalic vein pointing laterally andcephalad.Electronically signed by: GAEL CRUZ MD [facility] Daily Progress Note-Cardiolo gyon 07-07-2017 Protein mass conc Service: CardiologySubjective Data:KATHERINE JUDGE is a 82 year old Female who is Hospital Day # 6 and POD #4 forUS GUIDED PLACEMENT LEFT IJ TLC / ELAP / ANDREIA / RIGHT COLECTOMY / STAPLEDILEOCOLONIC ANASTAMOSIS / BILATERAL TAP BLOCK.Feels betterNo dyspneaMental status back to baselineNo edemaNo chest pain.Overnight Events: Patient had an uneventful night.Objective Data:Objective Information: T P R BP [id number] 36.4 78 18 155/73 97%Date/Time 07/07 14:10 07/07 14:10 07/07 14:10 07/07 14:10 06/2913:10Range (36.4C - 36.6C ) (75 - 78 ) (18 - 20 ) (152 - 155 )/(73 - 84 ) (97%- 98% )Pain at Rest reported at 07/07 18:52: 7Physical Exam:Constitutional: Well developed, awake/alert/oriented x3, no distress, alert andcooperativeEyes: PERRL, EOMI, clear scleraENMT: mucous membranes moist, no apparent injury, no lesions seenHead/Neck: Neck supple, no apparent injury, thyroid without mass or tenderness,No JVD, trachea midline, no bruitsRespiratory/Thorax: Diminished air entry left lung holden, left basilarcracklesCardiovascula r: Regular, rate and rhythm, no murmurs, 2+ equal pulses of theextremities, normal S 1and S 2Gastrointestinal: Nondistended, soft, non-tender, no rebound tenderness orguarding, no masses palpable, no organomegaly, +BS, no bruitsExtremities: normal extremities, no cyanosis edema, contusions or wounds, noclubbingNeurological: alert and oriented x3, intact senses, motor, response andreflexes, normal strengthPsychological: Appropriate mood and behaviorSkin: Warm and dry, no lesions, no rashesMedication:Medications : Continuous Medications ----No continuous medications are active Scheduled Medications ----1. Aspirin Chewable: 81 mg Oral Daily2. Clopidogrel: 75 mg Oral Daily3. Enoxaparin SubCutaneous: 40 mg SubCutaneous Every 24 Hours4. Furosemide: 40 mg Oral Daily5. Gabapentin: 800 mg Oral 3 Times a Day6. Isosorbide Mononitrate Extended Release: 60 mg Oral Daily7. Lisinopril: 10 mg Oral Daily8. Metoprolol Tartrate: 50 mg Oral Every 12 Hours9. Oxybutynin: 5 mg Oral 3 Times a Day10. Pantoprazole: 40 mg Oral Daily11. Potassium Chloride Powder Packet: 20 mEq Oral 2 Times a Day12. Simvastatin: 40 mg Oral At Bedtime PRN Medications ----1. Albuterol 2.5 mg/ 3 mL Nebulizer Soln: 3 mL Inhalation Every 4 Hours2. HYDROmorphone Injectable: 1 mg IntraVenous Push Every 2 Hours3. Morphine Injectable: 2 mg IntraVenous Push Every 1 Hour4. Ondansetron Injectable: 4 mg IntraVenous Push Every 6 Hours5. oxyCODONE 5 mg - Acetaminophen 325 m tablet(s) Oral Every 4 Hours6. Sodium Chloride 0.9% Injectable Flush: 10 mL IntraVenous Flush Every 8Hours and as NeededRecent Lab Results:Results:I have reviewed these laboratory results:Blood Gas, Arterial 07-Jul-2017 05:10:00Result ValuepH, Arterial 7.54 HpCO2, Arterial 41pO2, Arterial 70 LPatient-Temperature 37.0FIO2 36SO2, Arterial 97Base Excess-Blood 11.5 HBicarbonate, Calculated, Arterial 35.1 HSite of Arterial Puncture LEFT BRACHIALAllen's Test (Collateral Circulation) NON-APPLICABLEBasic Metabolic Panel 07-Jul-2017 04:53:00Result ValueLab Comment: Potassium Called- RB Christen Griffin on Med Surg, 07/07/2017 05:38Glucose, Serum 105 HNA 140K 2.6 LLCL 98Bicarbonate, Serum 34 HAnion Gap, Serum 11BUN 11CREAT 0.62GFR-Non >60GFR- >60Calcium, Serum 7.6 LComplete Blood Count 07-Jul-2017 04:53:00Result ValueWhite Blood Cell Count 5.2Red Blood Cell Count 2.49 LHGB 8.6 LHCT 25.0 LMCV 100MCHC 34.4PLT 197RDW-CV 13.2Magnesium, Serum 07-Jul-2017 04:53:00Result ValueMagnesium, Serum 1.48 LRadiology Results:Results:Impression:N o significant change in parahilar and bibasilar opacities, greateron the right. Left central venous line tip is unchanged in positionlikely in the distal brachiocephalic vein pointing laterally andcephalad. Xray Chest 1 View [Jul 07 2017 9:14AM]Assessment and Plan: 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-2017 20:32 Additional Dx: Pulmonary edema: Entered Date: 06-Jul-2017 07:40Comorbidities:Comorbidi ty: altered mental status..., anemia, respiratory failureAltered Mental Status Type: delirium...Delirium Type: due to medicationsAnemia: anemia of chronic diseaseAcuity of Respiratory Failure: acuteAdditional Respiratory Failure Specificity: with hypoxiaAssessment:1. Cecal volvulus s/p right colectomy-pain meds-encourage IS-Lovenox for DVT prophylaxis2. Lpqkpvjokjah-igxvca-orvc metoprolol, lisinopril, and Imdur-cont to monitor closely3. H/o CAD s/p CABG-I reviewed the EKG, no acute changes, ST elevation, or depression-No obj or subj ACS symptoms-cont metoprolol, statin-Restarted ASA, plavix-Monitor on tele-Echo from our office from May 2017 reviewed: LVEF 65%, LVH with diastolicdysfunction, moderate basal septal hypertrophy, dilated RV, mildly decreased RVsystolic function, moderate LAE, mild ARAVIND, mild , trace AI, moderate MR/TR,pseudonormal LV filling, mild pulmonary htn4. Acute kidney injury resolved-BUN/Cr-29/1.25 on admit, currently 11/0.625. Elevated glucose, monitor6. Anemia-Monitor closely7. Hyperlipidemia-Lipid panel WNL in February 2017-Cont statin8. AMS, likely due to ativan9. Acute diastolic CHF, improved, clinically euvolemic, agree with change tooral Lasix10. Supplement K and MgElectronic Signatures:Ventura Thacker) (Signed 07-Jul-2017 21:46) Authored: Service, Subjective Data, Objective Data, Assessment and Plan,Signature/Cosignature/A ttestationLast Updated: 07-Jul-2017 21:46 by Ventura Thacker) Normal [facility] Daily Progress Note-Samarao n 07-07-2017 Protein mass conc Service: SurgerySubj ective Data:KATHERINE JUDGE is a 82 year old Female who is Hospital Day # 6 and POD #4 forUS GUIDED PLACEMENT LEFT IJ TLC / ELAP / ANDREIA / RIGHT COLECTOMY / STAPLEDILEOCOLONIC ANASTAMOSIS / BILATERAL TAP BLOCK.Additional Information:Patient's mental status returned to baseline. Patient lying in bed in NAD.Passing flatus. No nausea or abdominal pain.Objective Data:Objective Information: T P R BP [id number] 36.6 75 20 152/84 98%Date/Time 07/07 6:48 07/07 6:48 07/07 6:48 07/07 6:48 07/07 6:48Range (36.6C - 37.1C ) (75 - 84 ) (16 - 20 ) (149 - 154 )/(75 - 84 ) (94%- 98% )Highest temp of 37.1 C was recorded at 07/06 20:00Pain with Activity reported at 07/06 20:00: 0Pain at Rest reported at 07/06 20:00: 0Physical Exam:Constitutional: Cachectic, alert, awake, oriented, lying in bed in no apparentdistressEyes: clear scleraENMT: Mucous membranes dry, no apparent injury, no lesions seenHead/Neck: Left IJ triple lumen catheter in place, neck supple, no apparentinjury, No JVD, trachea midlineRespiratory/Thorax: Patent airways, CTAB, normal breath sounds with good chestexpansion, thorax symmetricCardiovascular: Regular, rate and rhythm, no murmurs, 2+ equal pulses of theextremities, normal S 1and S 2Gastrointestinal: Distended, soft, mild tenderness at incision, no reboundtenderness or guarding, no masses palpable, NABSGenitourinary: Soto catheter in placeMusculoskeletal: Weak strength, no joint swellingExtremities: normal extremities, no cyanosis edema, contusions or wounds, noclubbingNeurological: Intact senses, weak strengthLymphatic: No significant lymphadenopathyPsychological : Appropriate mood and behaviorSkin: Warm and dry, no lesions, no rashes. Post-operative incision midlineabdomen appears to be healing wellMedication:Medications:I have reviewed active medication orders.Recent Lab Results:Results:I have reviewed these laboratory results:Blood Gas, Arterial 07-Jul-2017 05:10:00Result ValuepH, Arterial 7.54 HpCO2, Arterial 41pO2, Arterial 70 LPatient-Temperature 37.0FIO2 36SO2, Arterial 97Base Excess-Blood 11.5 HBicarbonate, Calculated, Arterial 35.1 HSite of Arterial Puncture LEFT BRACHIALAllen's Test (Collateral Circulation) NON-APPLICABLEBasic Metabolic Panel 07-Jul-2017 04:53:00Result ValueLab Comment: Potassium Called- RB Christen Griffin on Med Surg, 07/07/2017 05:38Glucose, Serum 105 HNA 140K 2.6 LLCL 98Bicarbonate, Serum 34 HAnion Gap, Serum 11BUN 11CREAT 0.62GFR-Non >60GFR- >60Calcium, Serum 7.6 LComplete Blood Count 07-Jul-2017 04:53:00Result ValueWhite Blood Cell Count 5.2Red Blood Cell Count 2.49 LHGB 8.6 LHCT 25.0 LMCV 100MCHC 34.4PLT 197RDW-CV 13.2Magnesium, Serum 07-Jul-2017 04:53:00Result ValueMagnesium, Serum 1.48 LRadiology Results:Results:I have reviewed this radiology result:CT Head without Contrast [Jul 06 2017 1:28PM]Xray Chest 1 View [Jul 06 2017 7:25AM]Assessment and Plan: 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-2017 20:32 Additional Dx: Pulmonary edema: Entered Date: 06-Jul-2017 07:40 S/P right hemicolectomy: Entered Date: 03-Jul-2017 00:33 Small bowel obstruction: Entered Date: 02-Jul-2017 20:32 Anemia: Entered Date: 26-Dec-2016 19:03Assessment:82-year-old female admitted for cecal volvulus s/p right hemicolectomy.Cecal volvulus (resolved) s/p right hemicolectomy-patient passing flatus, bowel sounds present. Await bowel function-continue electrolyte replenishment to prevent electrolyte-induced ileus-Lasix 40mg PO daily, monitor K+-Low-fiber dietSignature/Cosignature/At testation:Comments/ Additional FindingsMUCH IMPROVED / AWAKE ALERT / PO LASIX / PT/OTElectronic Signatures:Manny Arana) (Signed 07-Jul-2017 13:55) Authored: Assessment and Plan, Signature/Cosignature/Attest ation Co-Signer: Service, Subjective Data, Objective Data, Assessment and PlanAltagracia Trammell (GLENDA) (Signed 07-Jul-2017 08:01) Authored: Service, Subjective Data, Objective Data, Assessment and PlanLast Updated: 07-Jul-2017 13:55 by Manny Arana) Normal [facility] Discharge [id number] 05-29-2 018 Protein mass conc Discharge Orders:Ant icipated Discharge Date:? Anticipated Discharge [id number] Problem List: Admitting Dx:? Cecal volvulus: Catalog Name: Volvulus Additional Dx:? [facility]okal[facility]: [facility] Providers:Provider RoleProvider Name? AttendingManny Arana? ConsultingVentura Thacker? Manny Mcbride P? [facility] Hospital Course (Home Care/Gold Form):Hospital Course:? Hospital Course: include significant abnormal lab valuesPatient is an 82 y/o female with PMHx of SBO and (s/p ELAP in February 2012),known large hiatal hernia, and small vessel colon disease, who presented withsudden onset of abdominal pain and nausea without vomiting. CT showed SBO andcecal volvulus. On 07/03/17, she went to the OR for U/S guided placement of L IJ triple lumencatheter, exploratory laparotomy, lysis of adhesions, R colectomy, ileocolonicstaple anastomosis, and B/L transversus abdominis plane block. She was left intubated post-op and was admitted to the ICU. That same day, shewas extubated and placed on 3L NC. On 07/05/17 she was transferred to the general medical floor. Cardiology followed due to hx of HTN, CAD s/p CABG, and HLD. She was onmetoprolol, lisinopril, and Imdur. She was restarted on ASA and Plavix, andalso received Lovenox for DVT prophylaxis. Due to acute diastolic CHF, she was changed to oral Lasix 40mg on 07/07/17.Potassium and magnesium supplementation was given for hypomagnesia andhypokalemia. Potassium: 2.6 (07/07), 3.2 (07/08), 3.3 (07/09)Magnesium 1.48 (07/07), 1.96 (07/08), 1.51 (07/09) 07/09/17: Discharge to [facility]dc care for rehabilitation 2/ todeconditioning as well as continued electrolyte monitoring and replacement. Gold Form Orders:Care Recommendation:? I recommend that INPATIENT care is required at:Skilled? Estimated StayConvalescent stay < 30 days? PrognosisGood? Rehab Potential/FunctionImprove? Provider CertificationI certify that inpatient care is required at the levelrecommended above. To the best of my knowledge, all information provided aboutthe individual is a true and accurate reflection of the individual's condition. Therapy Orders:? Occupational Therapy OrdersEval and Treat ([facility]) 2times/day? Physical Therapy OrdersEval and Treat ([facility]) 2times/day Provider Follow Up:? Physician To Follow at Skilled/RehabAttending Physician at Skilled/Rehab Provider FINAL REVIEW of Orders:Final Review:? Final Review of Medication Reconciliation and Orders Completedby Physician? Reviewing ProviderMike Olson DO (Resident) at 09-Jul-2017 07:42:04 Gold Form - [employer] Floor[employer] Summary:Referral Information:? Referral [facility]? Referring Facility [facility]? Contact Sebastian Chaudhari RN (Associate Account Director)? Contact Phone [phone] Medicare/Medicaid:? Medicare [id number] Social Security:? Social Security [id number] Mental & Functional Status:? Mental/Behavioral Statusalert? Functional Status Prior To Admissionindependent? Capacity For Independent Living/Shelter Planreturn home? Mental/Functional Commentalert and oriented x3 Electronic Signatures:Manny Arana) (Signed 08-Jul-2017 12:35)Authored: Gold Form Orders, Provider FINAL REVIEW of OrdersCo-Signer: Gold Form OrdersSom Chaudhari (CLIN COOR) (Signed 07-Jul-2017 15:04)Authored: Gold Form - [employer] Floorperson SummaryMike Olson ( (Resident)) (Signed 09-Jul-2017 07:42)Authored: Discharge Orders, Hospital Course (Home Care/Gold Form), ProviderFINAL REVIEW of OrdersWanda Muller (CLIN COOR) (Signed 08-Jul-2017 16:40)Authored: Gold Form Orders, Gold Form - [employer] Floor[employer] Summary Last Updated: 09-Jul-2017 07:42 by Mike Olson ( (Resident)) Normal [facility] EMR ADDONon 07-07-2017 ADDON CONFIRMATION REQUEST REC'D Normal [facility] Comment on above: Performed By: #### U AMIC ####[facility] [place] [address] MAGNESIUMon 07-07-2017 Magnesium mass conc 1.48 mg/dL Low 1.60 - 2.40 [facility] Comment on above: Performed By: #### U AMIC ####[address] [address] ARTERIAL BLOOD GASon 018 JACKIE'S TEST[COLLATERAL CIRCULATION] NON-APPLICABLE Normal [facility] Comment on above: Performed By: #### U A ####[address] [address] SITE OF ARTERIAL PUNCTURE LEFT BRACHIAL Normal [facility] Comment on above: Performed By: #### U A ####[address] [address] BASE EXCESS-BLOOD 8.2 mmol/L High -2.0 - 3.0 [facility] Comment on above: Performed By: #### U A ####[address] [address] FIO2 28 % Normal [facility] Comment on above: Performed By: #### U A ####[address] [address] Oxygen ppres (BldA) 51 mm[Hg] Low 85 - 95 [facility] Comment on above: Performed By: #### U A ####[address] [address] PCO2 40 mmHg Normal 38 - 42 [facility] Comment on above: Performed By: #### U A ####[address] [address] RBC Auto #/vol (Bld) 31.9 mmol/L High 22.0 - 26.0 [facility] Comment on above: Performed By: #### U A ####[address] [address] SO2 93 % Low 94 - 100 [facility] Comment on above: Performed By: #### U A ####[address] [address] pH (Bld) 7.51 [pH] High 7.38 - 7.42 [facility] Comment on above: Performed By: #### U A ####[address] [address] BNPon 07-06-2017 Natriuretic peptide B mass conc (Bld) 760 pg/mL High 0 - 99 [facility] Comment on above: Result Comment: . <1 00 pg/mL - Heart failure uasxuhrj019-554 pg/mL - Intermediate probability of acute heart. failure exacerbation. Correlate with clinical. context and patient history. >=300 pg/mL - Heart Failure likely. Correlate with clinical. context and patient history.BNP testing is performed using different testingmethodology [facility]. Direct result comparisons shouldonly be made within the same method. Performed By: #### U A ####[address] [address] CBCon 07-06-2017 Erythrocyte distribution width Auto Ratio (RBC) 13.7 % Normal 11.5 - 14.5 [facility] Comment on above: Performed By: #### C BCDF ####[address] [address] Hematocrit Auto Volume Fraction (Bld) 26.2 % Low 36.0 - 46.0 [facility] Comment on above: Performed By: #### C BCDF ####[address] [address] Hemoglobin mass conc (Bld) 9.0 g/dL Low 12.0 - 16.0 [facility] Comment on above: Performed By: #### C BCDF ####[address] [address] MCHC Auto mass conc (RBC) 34.4 g/dL Normal 32.0 - 36.0 [facility] Comment on above: Performed By: #### C BCDF ####[address] [address] MCV Auto Entitic volume (RBC) 101 fL High 80 - 100 [facility] Comment on above: Performed By: #### C BCDF ####[address] [address] Platelets Auto #/vol (Bld) 190 10*3/uL Normal 150 - 450 [facility] Comment on above: Performed By: #### C BCDF ####[address] [address] RBC Auto #/vol (Bld) 2.60 x10E12/L Low 4.00 - 5.20 [facility] Comment on above: Performed By: #### C BCDF ####[facility] [place] [address] WBC Auto #/vol (Bld) 3.5 10*3/uL Low 4.4 - 11.3 [facility] Comment on above: Performed By: #### C BCDF ####[facility] [place] [address] CHEST 1 VIEWon 07-06-2017 CHEST 1 VIEW Name: KATHERINE JUDGE STUDY:CHEST 1 VIEW; 07/06/2017 7:05 am INDICATION:Signs/Symptoms: HYPOXIA. COMPARISON:07/03/17 ORDERING CLINICIAN:MANNY ARANA FINDINGS:AP portable view of the chest is obtained. Limited exam due toportable nature. Magnified cardiac silhouette. Central line catheter.Suboptimally visualized. Interstitial prominence diffusely. Bibasilarinfiltrates and effusions, worse since the prior exam. Continuedfollow-up is recommended.Status post extubation. IMPRESSION:1. Worsening aeration of both lungs with worsening bibasilarinfiltrates and effusions and interstitial prominence. Considerworsening CHF and pulmonary edema. Clinical correlation follow-up isrecommended.Electronically signed by: SUHAIL ALMANZA MD Normal [facility] CT HEAD WO CONTRASTon 2017 CT HEAD WO CONTRAST Name: KATHEIRNE JUDGE STUDY:CT HEAD WO CONTRAST; 07/06/2017 1:22 pm INDICATION:Signs/Symptoms: ACUTE CONFUSION. COMPARISON:None. ORDERING CLINICIAN:MANNY ARANA TECHNIQUE:Noncontrast axial CT scan of head was performed. Angled reformats inbrain and bone windows were generated. The images were reviewed inbone, brain, blood and soft tissue windows. FINDINGS:The ventricles, cisterns and sulci are prominent, consistent withmild diffuse volume loss. There are areas of nonspecific white matterhypodensity, which are probably age-related or microvascular innature. Turner-white differentiation is intact and there is no evidence ofacute cortical infarct. No mass, mass effect or midline shift isseen. There is no evidence of hemorrhage. The visualized paranasal sinuses are clear. S-shaped nasal septaldeviation. IMPRESSION:No evidence of acute cortical ischemia or intracranial hemorrhage.Chronic changes of volume loss and small vessel ischemic disease. No evidence of intracranial hemorrhage or displaced skull fracture.Electronically signed by: SUHAIL ALMANZA MD [facility] Daily Progress Note-Cardiolo handyon 07-06-2017 Protein mass conc Service: CardiologySubjective Data:KATHERINE JUDGE is a 82 year old Female who is Hospital Day # 5 and POD #3 forUS GUIDED PLACEMENT LEFT IJ TLC / ELAP / ANDREIA / RIGHT COLECTOMY / STAPLEDILEOCOLONIC ANASTAMOSIS / BILATERAL TAP BLOCK.She is sitting up in the chair, obtunded, confused, incoherentDenies chest pain, shortness of breath or dizziness.Telemetry NSRReview of systems:Constitutional: negative for fever, chills, or malaiseNeuro: negative for dizziness, headache, numbness, tingling positive foragitation, confusionENT: Negative for nasal congestion or sore throatResp: POSITIVE for shortness of breath, NO cough, or wheezingCV: negative for chest pain, palpitationsGI: negative for nausea, vomiting or diarrheaGU: negative for dysuria, frequency, or urgencySkin: negative for lesions, wounds, or rashMusculoskeletal: Negative for weakness, myalgia, or arthralgiaEndocrine: Negative for polyuria or polydipsia.Overnight Events: Acute events in the past 24 hours includeAdditional Information:agitation, received ativanObjective Data:Objective Information: T P R BP [id number] 36.8 101 18 173/87 94%Date/Time 07/06 7:15 07/06 7:15 07/06 7:15 07/06 7:15 07/06 7:15Range (36.4C - 36.8C ) (80 - 101 ) (16 - 20 ) (141 - 176 )/(70 - 87 )(94% - 99% ) As of 05-Jul-2017 20:00:00, patient is on 3 L/min of oxygen via nasal cannula.Pain with Activity reported at 07/05 12:00: 4Pain at Rest reported at 07/05 14:45: 6Physical Exam:Constitutional: Thin elderly female no acute distressEyes: PERRL, EOMI, clear scleraENMT: mucous membranes moist, no apparent injury, no lesions seenHead/Neck: Neck supple, no apparent injury, thyroid without mass or tenderness,No JVD, trachea midline, no bruits, left IJ TLCRespiratory/Thorax: Moderately diminished with coarse crackles anteriorly atthe left baseCardiovascular: Regular, rate and rhythm, no murmurs, 2+ equal pulses of theextremities, normal S 1and S 2Gastrointestinal: Soft, tender abdomen, BS hypoactive, abd dressing dry andintactMusculoskeletal: ROM intact, no joint swelling, normal strengthExtremities: normal extremities, no cyanosis edema, contusions or wounds, noclubbingNeurological: alert and oriented n6Kwwvzfrrjbzso: Appropriate mood and behaviorSkin: Warm and dryMedication:Medications: Continuous Medications ----No continuous medications are active Scheduled Medications ----1. Aspirin Chewable: 81 mg Oral Daily2. Clopidogrel: 75 mg Oral Daily3. Furosemide Injectable: 20 mg IntraVenous Push 2 Times a Day4. Gabapentin: 800 mg Oral 3 Times a Day5. Isosorbide Mononitrate Extended Release: 60 mg Oral Daily6. Lisinopril: 10 mg Oral Daily7. Metoprolol Tartrate: 50 mg Oral Every 12 Hours8. Oxybutynin: 5 mg Oral 3 Times a Day9. Pantoprazole: 40 mg Oral Daily10. Simvastatin: 40 mg Oral At Bedtime PRN Medications ----1. Albuterol 2.5 mg/ 3 mL Nebulizer Soln: 3 mL Inhalation Every 4 Hours2. HYDROmorphone Injectable: 1 mg IntraVenous Push Every 2 Hours3. Morphine Injectable: 2 mg IntraVenous Push Every 1 Hour4. Ondansetron Injectable: 4 mg IntraVenous Push Every 6 Hours5. oxyCODONE 5 mg - Acetaminophen 325 m tablet(s) Oral Every 4 Hours6. Sodium Chloride 0.9% Injectable Flush: 10 mL IntraVenous Flush Every 8Hours and as Needed Currently Suspended Medications ----1. Enoxaparin SubCutaneous: 40 mg SubCutaneous Every 24 HoursRecent Lab Results:Results:I have reviewed these laboratory results:Complete Blood Count 06-Jul-2017 08:19:00Result ValueWhite Blood Cell Count 3.5 LRed Blood Cell Count 2.60 LHGB 9.0 LHCT 26.2 LMCV 101 HMCHC 34.4PLT 190RDW-CV 13.7Troponin I, Serum 06-Jul-2017 05:45:00Result ValueTroponin I, Serum 0.02Brain Natriuretic Peptide 06-Jul-2017 05:45:00Result ValueBrain Natriuretic Peptide 760 HRadiology Results:Results:Impression:1 . Worsening aeration of both lungs with worsening bibasilarinfiltrates and effusions and interstitial prominence. Considerworsening CHF and pulmonary edema. Clinical correlation follow-up isrecommended. Xray Chest 1 View [Jul 06 2017 7:25AM]Assessment and Plan:Comorbidities:Comorbidi ty: anemiaAnemia: acute blood loss anemiaAssessment:, monitor1. Cecal volvulus s/p right colectomy-pain meds-encourage IS-Lovenox for DVT prophylaxis2. Lxloeptokjzv-aepmty-gjkc metoprolol, lisinopril, and Imdur-cont to monitor closely3. H/o CAD s/p CABG-I reviewed the EKG, no acute changes, ST elevation, or depression-No obj or subj ACS symptoms-cont metoprolol, statin-Restarted ASA, plavix-Monitor on tele-Echo from our office from May 2017 reviewed: LVEF 65%, LVH with diastolicdysfunction, moderate basal septal hypertrophy, dilated RV, mildly decreased RVsystolic function, moderate LAE, mild ARAVIND, mild , trace AI, moderate MR/TR,pseudonormal LV filling, mild pulmonary htn4. Acute kidney injury resolved-BUN/Cr-29/1.25 on admit, currently 17/0.745. Elevated glucose, monitor6. Anemia-Monitor closely7. Hyperlipidemia-Lipid panel WNL in February 2017-Cont statin8. AMS, likely due to ativan9. Acute diastolic CHF, CXR personally reviewed, stop IV fluids, give IV lasixElectronic Signatures:Ventura Thacker) (Signed 06-Jul-2017 09:54) Authored: Service, Subjective Data, Objective Data, Assessment and Plan,Signature/Cosignature/A ttestationLast Updated: 06-Jul-2017 09:54 by Ventura Thacker) Normal [facility] Daily Progress Note-Surgeryo n 07-06-2017 Protein mass conc Service: SurgerySubj ective Data:KATHERINE JUDGE is a 82 year old Female who is Hospital Day # 5 and POD #3 forUS GUIDED PLACEMENT LEFT IJ TLC / ELAP / ANDREIA / RIGHT COLECTOMY / STAPLEDILEOCOLONIC ANASTAMOSIS / BILATERAL TAP BLOCK.CONFUSED SINCE THIS AM / TACHYPNEA / NO FLATUS / NO NAUSEA.Objective Data:Objective Information: T P R BP HoL6Ogemy 36.4 88 16 147/71 97%Date/Time 07/05 20:00 07/05 20:00 07/05 20:07/05 20:0:00Range (36.4C - 36.4C ) (79 - 88 ) (14 - 20 ) (130 - 176 )/(60 - 79 ) (93%- 99% ) As of 05-Jul-2017 20:00:00, patient is on 3 L/min of oxygen via nasal cannula.Pain with Activity reported at 07/05 12:00: 4Pain at Rest reported at 07/05 14:45: 6Physical Exam:Constitutional: CACHETIC , MILD distress, IS FOLLOWING COMMANDSRespiratory/Thorax: Patent airways, DIMINISHED AIR ENTRY BILATERALLY / SOMEWHEEZINGCardiovascular: Regular, rate and rhythm, no murmurs,Gastrointestinal: Nondistended, soft, INCISIONAL TENDERNESS , n0 guarding, nomasses palpable, no organomegaly,Musculoskeletal : normal strengthExtremities: normal extremities,Neurological: intact senses, , WEAK strengthLymphatic: No significant lymphadenopathyPsychological : INAPPROPRIATE mood and behaviorRecent Lab Results:Results:I have reviewed these laboratory results: Complete Blood Count [[id number] 05:18:00], Basic Metabolic Panel [Drawn 05-Jul-2017 05:18:00].Radiology Results:Results:Impression:1 . Worsening aeration of both lungs with worsening bibasilarinfiltrates and effusions and interstitial prominence. Considerworsening CHF and pulmonary edema. Clinical correlation follow-up isrecommended. Xray Chest 1 View [Jul 06 2017 7:25AM]Assessment and Plan: 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-2017 20:32 Additional Dx: Pulmonary edema: Entered Date: 06-Jul-2017 07:40 Tachypnea: Entered Date: 06-Jul-2017 07:40 S/P right hemicolectomy: Entered Date: 03-Jul-2017 00:33 Small bowel obstruction: Entered Date: 02-Jul-2017 20:32Assessment:IMP - HYPOXIA/ CONFUSION / WHEEZING / PULMONARY EDEMA / S/P RIGHT HEMICOLECTOMYFOR CECAL VOLVULUSPLAN - DIURESIS / DC IV/ FOLLOW CLOSELY / AWAIT BOWEL FUNCTION / SLOW PROGRESS/ FAIR PROGNOSISSCIP Measures:Urinary Catheter Removed Post-Op Day 2: N/A, patient does not have urinarycatheterPatient on Beta Simon Prior to Admission: yesRestarted on Beta Simon by Post-Op Day 2: yesProphylactic antibiotics scheduled to be discontinued with 24 hr of anesthesiaend time (48 hr for cardiac surgery): N/A, patient not on prophylacticantibioticsElect ronic Signatures:Manny Arana) (Signed 06-Jul-2017 07:42) Authored: Service, Subjective Data, Objective Data, Assessment and Plan, SCIPMeasures, Signature/Cosignature/Attest ationLast Updated: 06-Jul-2017 07:42 by Manny Arana) [facility] Nutrition Therapy-Follow Upo n 07-06-2017 Nutrition Therapy-Follow Up Assessment Subjective/Objective:Note Type: Follow UpNote Authored by: Registered Dietitian NutritionistPager Number: [phone] Note:The patient is a 82 year old Female admitted for small bowel obstruction.Hospital Day #5Per chart: Pt presented to ED on 07/02/17 with abdominal pain and nausea thatbegan 07/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 Pt admitted for surgery, now s/p R hemicolectomy, and stapledileocolonic anastomosis on 07/03/17. Was transferred to Med/Surg acute care.Chest xray on 07/06 showed worsening CHF; IV fluids held and IV Lasix started.Pt was NPO x 3 days (07/02 to 07/05)Pt on clear liquids x 2 days (07/05 to 07/06)Attempted to visit pt at bedside this afternoon; pt appeared to be resting andalso appeared agitated. No family present at time of visit. Unable tocomplete physical assessment. Per chart, pt with +flatus and +bowel sounds.Per RN, IV fluids held. Per flowsheet and RN, pt consuming minimal PO clearliquids. Dietitian consulted Dr. Arana regarding Prostat for pt and possibleTPN. Admitting Dx: Cecal volvulus: Additional Dx: Pulmonary edema: Tachypnea: S/P right hemicolectomy: Small bowel obstruction: NSTEMI (non-ST elevated myocardial infarction): UTI (urinary tract infection), bacterial: Anemia: Lactic acidosis: Leukocytosis, unspecified type: Hypotension (arterial): Pneumonia of right lower lobe due to infectious organism: Acute encephalopathy: Medical History: Gastrocutaneous fistula: Constipation: Ileus: Exploratory laparotomy: Anemia due to unknown or multiple mechanisms (disorder): Transient ischemic colitis (disorder): Protein malnutrition unspecified (disorder): Hypokalemia (disorder): Magnesium deficiency: Colitis (disorder): Small bowel obstruction (disorder): Acute bowel obstruction: Onset Date: 11-Feb-2012 Chronic: Fluid overload pulmonary edema: Clostridium difficile infection: Diarrhea: Other Dx/Proc: Gastrointestinal bleeding: Description: Gastrointestinal bleeding 1 Colitis, 2 Abdomen Pain 3 Cholelithiasis: Onset Date: 03-Apr-2012 Heart failure: Description: Heart failure PNEUMONIA: Diabetes mellitus: Description: Diabetes mellitus Abdominal pain: Description: Abdominal pain Electrolyte imbalance: Description: Electrolyte imbalance Post CABG: Description: Post CABG Coronary artery disease: Description: Coronary artery disease Non ST Elevation Myocardial Infarction (NSTEMI): Description: Non ST ElevationMyocardial Infarction (NSTEMI) Coronary angioplasty/stent (PCI): Description: Coronary angioplasty/stent(PCI) Dyspnea: Description: Dyspnea Coronary atherosclerosis: Description: Coronary atherosclerosis Left heart catheterization: Description: Left heart catheterization Hypotension: Sepsis: Description: Sepsis Venous thromboembolism: Description: Venous thromboembolism Medical History: Gastrocutaneous fistula: Constipation: Ileus: Exploratory laparotomy: Anemia due to unknown or multiple mechanisms (disorder): Transient ischemic colitis (disorder): Protein malnutrition unspecified (disorder): Hypokalemia (disorder): Magnesium deficiency: Colitis (disorder): Small bowel obstruction (disorder): Acute bowel obstruction: Onset Date: [id number] Information:---- Intake and Output -----Mn/Dy/Year Time Intake Output NetMay 2017 2:00 pm 725 250 475May 2017 6:00 am 0 2 -2May 2017 10:00 pm 253 0 253The Intake and Output Totals for the last 24 hours are: Intake Output Net 493 952 -459 T P R BP RfO2Synkj 37 83 16 154/75 94%Date/Time 07/06 14:17 07/06 14:17 07/06 14:17 07/06 14:4:17Range (36.4C - 37C ) (83 - 101 ) (16 - 18 ) (147 - 173 )/ (71 - 87 ) (94%- 97% ) As of 05-Jul-2017 20:00:00, patient is on 3 L/min of oxygen via nasal cannula.Highest temp of 37 C was recorded at 07/06 14:17 Weights07/06 5:00: Weight in kg (Weight (kg)) 54.65 5:00: Weight in lbs ((lbs)) 120.3Height/Weight:Height in feet: 5 feetHeight in inches: 2 inch(es)Height in cm: 157.4 centimeter(s)Weight in lbs: 120.4 pound(s)Weight (kg): 54.6BMI (kg/m2): 22.038 square meterDBW (kg): 57.3%DBW: 95Weight history/ % weight change: DBW-126 lbs for BMI 23 in adult >65 years Weight History: 07/03/17: 53.8 kg (? accuracy of weight gain in setting of worsening CHF andfluid retention)01/02/17: 47.2 kg- No edema per flowsheet, ? weight gain from 12/26 vs fluidshifts in pt with history of malnutrition/ pulmonary edema / heart failureSignificant Weight Change: noRecent Lab Results:Results:I have reviewed these laboratory results:Blood Gas, Arterial 06-Jul-2017 15:15:00Result ValuepH, Arterial 7.51 HpCO2, Arterial 40pO2, Arterial 51 LPatient-Temperature 37.0FIO2 28SO2, Arterial 93 LBase Excess-Blood 8.2 HBicarbonate, Calculated, Arterial 31.9 HSite of Arterial Puncture LEFT BRACHIALAllen's Test (Collateral Circulation) NON-APPLICABLEUrinalysis 06-Jul-2017 12:08:00Result ValueColor, Urine YELLOW Reference Range: STRAW,YELLOWAppearance, Urine CLEARSpecific Max, Urine 1.008pH, Urine 5.0Protein, Urine NEGATIVEGlucose, Urine NEGATIVEBlood, Urine MODERATE(2+) AKetones, Urine 5(Trace) ABilirubin, Urine NEGATIVEUrobilinogen, Urine <2.0Nitrite, Urine NEGATIVELeukocyte Esterase, Urine TRACE AUrinalysis, Microscopic 06-Jul-2017 12:08:00Result ValueWhite Cells 0-5Red Blood Cells 0-5Epithelial Cells, Squamous FEWEpithelial Cells, Transitional FEWBacteria, Urine 1+ AMucous 1+Hyaline Casts 1+ AComplete Blood Count Trending ViewResult 06-Jul-2017 08:19:00 05-Jul-2017 05:18:00White Blood Cell Count 3.5 L 6.6Red Blood Cell Count 2.60 L 2.33 LHGB 9.0 L 8.0 LHCT 26.2 L 24.0 LMCV 101 H 103 HMCHC 34.4 33.3PLT 190 149 LRDW-CV 13.7 14.1Troponin I, Serum 06-Jul-2017 05:45:00Result ValueTroponin I, Serum 0.02Brain Natriuretic Peptide 06-Jul-2017 05:45:00Result ValueBrain Natriuretic Peptide 760 HBasic Metabolic Panel 05-Jul-2017 05:18:00Result ValueGlucose, Serum 90NA 139K 3.9CL 106Bicarbonate, Serum 26Anion Gap, Serum 11BUN 17CREAT 0.74GFR-Non >60GFR- >60Calcium, Serum 7.7 LCurrent Active Medications/PN: Enoxaparin SubCutaneous, (LOVENOX) DOSE = 40 mg SubCutaneous Every 24 Hours, 03-Jul-2017 Sodium Chloride 0.9% Injectable Flush, via Triple Lumen - Arrow Brand Volume = 10 mL IntraVenous Flush Every 8 Hours and as Needed, 03-Jul-2017 HYDROmorphone Injectable, (DILAUDID) DOSE = 1 mg IntraVenous Push Every 2 Hours, PRN Pain - Severe (7-10),03-Jul-2017 Isosorbide Mononitrate Extended Release, Tablet, Extended Release (IMDUR) DOSE = 60 mg Oral Daily, 04-Jul-2017 Lisinopril, Tablet (PRINIVIL, ZESTRIL) DOSE = 10 mg Oral Daily, 04-Jul-2017 Gabapentin, Capsule (NEURONTIN) DOSE = 800 mg Oral 3 Times a Day, 04-Jul-2017 Oxybutynin, Tablet (DITROPAN) DOSE = 5 mg Oral 3 Times a Day, 04-Jul-2017 Simvastatin, Tablet (ZOCOR) DOSE = 40 mg Oral At Bedtime, 04-Jul-2017 Ondansetron Injectable, (ZOFRAN) DOSE = 4 mg IntraVenous Push Every 6 Hours, PRN Nausea & Vomiting, 05-Jul-2017 Metoprolol Tartrate, Tablet (LOPRESSOR) DOSE = 50 mg Oral Every 12 Hours, 05-Jul-2017 oxyCODONE 5 mg - Acetaminophen 325 mg, Tablet (PERCOCET) DOSE = 1 tablet(s) Oral Every 4 Hours, PRN Pain - Mild (1-3), 05-Jul-2017 Pantoprazole, Enteric Coated Tablet (PROTONIX) DOSE = 40 mg Oral Daily, 05-Jul-2017 Clopidogrel, Tablet (PLAVIX) DOSE = 75 mg Oral Daily, 05-Jul-2017 Furosemide Injectable, (LASIX) DOSE = 20 mg IntraVenous Push 2 Times a Day Ca mg/DOSE x 1 = 20 mg/Dose (Daily Total is 40 mg) Clinician Notes: TO START AT 1700 07/06/17, [id number] Orders: Clear Liquid Diet, Routine, 05-Jul-2017 Oral Nutritional Supplements, Routine Resource Breeze Flavor Preference: [place]; [place], 2 Times a Day Special Instructions: Please send Boost Breeze orange at breakfast and BoostBreeze york at dinner, 06-Jul-2017 Pro-Stat 101, Oral - Administer as a scheduled medication. Pour packet into a30 ML medicine cup. Tube Feeding - Standard flush before and afteradministering 3 Times a Day Routine 1 PO (Oral), [id number]/Nutrition Related History:Change in Oral Intake/Appetite: increase -Diet advanced to clears, pt withminimal intakeGI Symptoms: none, -No BM documented per flowsheet, pt with history ofconstipationTime Frame for GI Symptoms Greater Than 2 Weeks: not applicableOral Problems: unable to assess at this timeMobility: bed/chair riddenFood Allergies Comment: NKFANutritional Supplements: deniesNutrition Focused Physical Findings:Muscle Wasting:Temporal: noShoulder: deferClavicle: deferScapula/Back: deferBiceps/Triceps: deferInterosseous: noQuadriceps: deferCalf: deferLoss of Subcutaneous Fat:Eyes: noPerioral: noTriceps: deferChest: deferOther Physical Findings:Hair: negativeEyes: negativeNails: negativeSkin: per flowsheet 07/06, midline incision closed with george, open to air, nodrainageEdema: none, per flowsheetChange in Metabolic Demand: yes UTI, pneumonia, worsening CHF, Pt s/p surgerySubjective Global Assessment Rating: unable to determine at this time -Unableto complete physical assessment; pt with weight gain, ? accuracy in pt withworsening CHF, pt on clear liquid dietEstimated Needs:kcals/day: 1500 to 1700 kcal/day (28 to 32 kcal/kg actual weight)gms protein/day: 55 g/day (1 g/kg actual weight)mL fluid/day: per physicianNutrition Diagnosis:Diagnosis1 resolved. Dx: Inadequate oral intake. related to decreased abilityto consume sufficient energy as evidenced by pt is NPO. Dx: Inadequateprotein-energy intake. related to decreased ability to consume sufficientenergy s/p hemicolectomy as evidenced by pt was NPO x 3 days, currently onclear liquid diet (x 2 days) with minimal intake. Dx: Increased nutrient needs.related to increased demand as evidenced by pt with UTI, pneumonia, worseningCHF, pt s/p surgery.Additional Assessment Information: Labs Noted:-07/06/17 Improved BUN/Cr 17/0.74 (WNL), was elevated BUN/Cr 31/1.12 (H) on07/03.Nutrition Interventions:Individualized Nutrition Prescription Provided for: dietDiet Education: not applicableOrdered Supplements: Boost Breeze BID, Prostat TIDCoordination of Care with: Dr. Arana, [place] Ham RNNutrition Goals:Goals: Nutrition Therapy: less than 5 days NPO/clear liquids, consumeprescribed supplement, promote healing, maintain stable weight, reduce weightfrom edema/fluidNutrition Goal Outcomes: goal not metOutcomes Summary: Nutrition TherapyProgress: Nutrition Therapy: improvingOutcome Summary: Nutritional Therapy: -Inadequate protein energy intake-Increased nutrient needsNUTRITION RECOMMENDATIONS:Recommendati ons:1. When medically appropriate, advance diet as tolerated to 2g Na, Cardiacdiet2. If pt to remain on clears with poor intake > 48 hours, recommend initiateTPN3. Ordered Boost Breeze BID (500 kcal / 18 g protein)4. Ordered Prostat TID (300 kcal / 45 g protein)5. Check weight dailyNutrition Therapy Recommendations:Nutrition Therapy Recommendations: 1. When medically appropriate, advance dietas tolerated to 2g Na, Cardiac diet 2. If pt to remain on clears with poor intake > 48 hours, recommend initiateTPN 3. Ordered Boost Breeze BID (500 kcal / 18 g protein) 4. Ordered Prostat TID (300 kcal / 45 g protein)5. Check weight dailyDietitian Monitoring and Evaluation Plan:Monitoring and Evaluation Plan: po intake and tolerance, fluid intake/adequacy,digestive function, weight trend, stool output, overall appearance, labsOther Plan: Evaluate nutrition intervention as compared to nutrition goal(s)and estimated nutrient need criteria.Diet Education:Nutrition Education: -Not appropriate at this time.Electronic Signatures:Silvia Tyler (RDN, LD) (Signed 06-Jul-2017 17:56) Authored: Assessment Subjective/Objective, Nutrition Focused PhysicalFindings, Estimated Needs, Nutrition Diagnosis, Nutrition Interventions,Nutrition Goals, Nutrition Recommendations, Dietitian Monitoring and EvaluationPlan, Diet EducationLast Updated: 28-May-2018 17:56 by Silvia Tyler (RDN, LD) Normal [facility] TROPONIN Ion 07-06-2017 Troponin I.cardiac mass conc 0.02 ng/mL Normal 0.00 - 0.03 [facility] Comment on above: Result Comment: LESS THAN 0.04 NG/ML: NEGATIVEREPEAT TESTING IN FOUR TO SIX HOURSIF CLINICALLY INDICATED.0.04 - 0.5 NG/ML: CONSISTENT WITH POSSIBLECARDIAC DAMAGE AND POSSIBLE INCREASEDCLINICAL RISK.SERIAL MEASUREMENTS MAY HELP ASSESS EXTENT OFMYOCARDIAL DAMAGE.>0.5 NG/ML: CONSISTENT WITH CARDIAC DAMAGE,INCREASED CLINICAL RISK AND MYOCARDIALINFARCTION. SERIAL MEASUREMENTS MAY HELPASSESS EXTENT OF MYOCARDIAL DAMAGE..Note: Troponin I testing is performed using differenttesting methodology [facility]. Direct result comparisons should onlybe made within the same method. Performed By: #### C BCDF ####[address] [address] UA MICROSCOPICon 07-06-2017 BACTERIA 1+ /HPF Abnormal [facility] Comment on above: Performed By: #### U A ####[address] [address] HYALINE CAST 1+ /LPF Abnormal [facility] Comment on above: Performed By: #### U A ####[address] [address] MUCUS 1+ /LPF Normal [facility] Comment on above: Performed By: #### U A ####[address] [address] RBC Test strip #/vol (U) 0-5 Normal 0-5 [facility] Comment on above: Performed By: #### U A ####[address] [address] SQUAMOUS EPITH. CELLS FEW Normal [facility] Comment on above: Performed By: #### U A ####[address] [address] TRANSITIONAL EPITH.CELLS FEW Normal [facility] Comment on above: Performed By: #### U A ####[address] [address] WBC 0-5 Normal 0-5 [facility] Comment on above: Performed By: #### U A ####[id number] [place] [address] URINALYSISon 07-06-2017 APPEARANCE CLEAR Normal CLEAR [facility] Comment on above: Performed By: #### U A ####[address] [place] [address] BILIRUBIN Negative Normal NEGATIVE [facility] Comment on above: Performed By: #### U A ####[address] [address] BLOOD MODERATE(2+) Abnormal NEGATIVE [facility] Comment on above: Performed By: #### U A ####[address] [address] COLOR YELLOW Normal STRAW,YELL OW [facility] Comment on above: Performed By: #### U A ####[address] [address] GLUCOSE Negative Normal NEGATIVE [facility] Comment on above: Performed By: #### U A ####[address] [address] KETONES 5(Trace) Abnormal NEGATIVE [facility] Comment on above: Performed By: #### U A ####[address] [address] LEUKOCYTE ESTERASE TRACE Abnormal NEGATIVE [facility] Comment on above: Performed By: #### U A ####[address] [address] NITRITE Negative Normal NEGATIVE [facility] Comment on above: Performed By: #### U A ####[address] [address] pH 5.0 Normal 5.0 - 8.0 [facility] Comment on above: Performed By: #### U A ####[address] [address] Protein mass conc Negative Normal NEGATIVE [facility] Comment on above: Performed By: #### U A ####[address] [address] SPECIFIC GRAVITY 1.008 Normal 1.005 - 1.035 [facility] Comment on above: Performed By: #### U A ####[address] [address] UROBILINOGEN <2.0 Normal 0.0 - 1.9 [facility] Comment on above: Performed By: #### U A ####[address] [address] BASIC METABOLIC PANELon 05-2 Anion gap 3 molar conc 11 mmol/L Normal 10 - 20 [facility] Comment on above: Performed By: #### C BCDF ####[address] [address] Calcium mass conc 7.7 mg/dL Low 8.6 - 10.3 [facility] Comment on above: Performed By: #### C BCDF ####[address] [address] Chloride molar conc 106 mmol/L Normal 98 - 107 [facility] Comment on above: Performed By: #### C BCDF ####[address] [address] Creatinine mass conc 0.74 mg/dL Normal 0.50 - 1.05 [facility] Comment on above: Performed By: #### C BCDF ####[address] [address] GFR- AM. >60 Normal >60 [facility] Comment on above: Result Comment: CALC ULATIONS OF ESTIMATED GFR ARE PERFORMED USING THE MDRD STUDY EQUATION FOR THE IDMS-TRACEABLE CREATININE METHODS. CLIN CHEM 2007;53:766-72 Performed By: #### C BCDF ####[address] [address] GFR-NON AM. >60 Normal >60 [facility] Comment on above: Performed By: #### C BCDF ####[address] [address] Glucose mass conc 90 mg/dL Normal 74 - 99 [facility] Comment on above: Performed By: #### C BCDF ####[address] [address] HCO3 molar conc (Bld) 26 mmol/L Normal 21 - 32 [facility] Comment on above: Performed By: #### C BCDF ####[address] [address] Potassium molar conc 3.9 mmol/L Normal 3.5 - 5.3 [facility] Comment on above: Performed By: #### C BCDF ####[address] [address] Sodium molar conc 139 mmol/L Normal 136 - 145 [facility] Comment on above: Performed By: #### C BCDF ####[address] [address] Urea nitrogen mass conc 17 mg/dL Normal 6 - 23 [facility] Comment on above: Performed By: #### C BCDF ####[address] [address] CBCon 07-05-2017 Erythrocyte distribution width Auto Ratio (RBC) 14.1 % Normal 11.5 - 14.5 [facility] Comment on above: Performed By: #### C BCDF ####[address] [address] Hematocrit Auto Volume Fraction (Bld) 24.0 % Low 36.0 - 46.0 [facility] Comment on above: Performed By: #### C BCDF ####[address] [address] Hemoglobin mass conc (Bld) 8.0 g/dL Low 12.0 - 16.0 [facility] Comment on above: Performed By: #### C BCDF ####[address] [address] MCHC Auto mass conc (RBC) 33.3 g/dL Normal 32.0 - 36.0 [facility] Comment on above: Performed By: #### C BCDF ####[address] [address] MCV Auto Entitic volume (RBC) 103 fL High 80 - 100 [facility] Comment on above: Performed By: #### C BCDF ####[address] [address] Platelets Auto #/vol (Bld) 149 10*3/uL Low 150 - 450 [facility] Comment on above: Performed By: #### C BCDF ####[facility] [place] [address] RBC Auto #/vol (Bld) 2.33 x10E12/L Low 4.00 - 5.20 [facility] Comment on above: Performed By: #### C BCDF ####[facility] [place] [address] WBC Auto #/vol (Bld) 6.6 10*3/uL Normal 4.4 - 11.3 [facility] Comment on above: Performed By: #### C BCDF ####[address] [place] [address] Daily Progress Note-Radha esteves 07-05-2017 Protein mass conc Service: CardiologySubjective Data:KATHERINE JUDGE is a 82 year old Female who is Hospital Day # 4 and POD #2 forUS GUIDED PLACEMENT LEFT IJ TLC / ELAP / ANDREIA / RIGHT COLECTOMY / STAPLEDILEOCOLONIC ANASTAMOSIS / BILATERAL TAP BLOCK.She is sitting up in the chair, complains of abdominal pain with movement.Denies chest pain, shortness of breath or dizziness.Telemetry NSR, rate 80'sReview of systems:Constitutional: negative for fever, chills, or malaiseNeuro: negative for dizziness, headache, numbness, tinglingENT: Negative for nasal congestion or sore throatResp: negative for shortness of breath, cough, or wheezingCV: negative for chest pain, palpitationsGI: negative for nausea, vomiting or diarrheaGU: negative for dysuria, frequency, or urgencySkin: negative for lesions, wounds, or rashMusculoskeletal: Negative for weakness, myalgia, or arthralgiaEndocrine: Negative for polyuria or polydipsia.Overnight Events: Patient had an uneventful night.Objective Data:Objective Information: T P R BP [id number] 36.4 83 16 158/70 96%Date/Time 07/05 8:00 07/05 11:07/05 11:07/05 11:1:00Range (36.4C - 36.9C ) (75 - 92 ) (13 - 25 ) (109 - 176 )/(54 - 79 ) (93%- 100% ) As of 05-Jul-2017 12:00:00, patient is on 3 L/min of oxygen via nasal cannula.Highest temp of 36.9 C was recorded at 07/05 4:00Pain with Activity reported at 07/05 12:00: 4Pain at Rest reported at 07/05 12:00: 4Physical Exam:Constitutional: Thin elderly female no acute distressEyes: PERRL, EOMI, clear scleraENMT: mucous membranes moist, no apparent injury, no lesions seenHead/Neck: Neck supple, no apparent injury, thyroid without mass or tenderness,No JVD, trachea midline, no bruits, left IJ TLCRespiratory/Thorax: Moderately diminished with coarse crackles anteriorly atthe left baseCardiovascular: Regular, rate and rhythm, no murmurs, 2+ equal pulses of theextremities, normal S 1and S 2Gastrointestinal: Soft, tender abdomen, BS hypoactive, abd dressing dry andintactMusculoskeletal: ROM intact, no joint swelling, normal strengthExtremities: normal extremities, no cyanosis edema, contusions or wounds, noclubbingNeurological: alert and oriented [id number]: Appropriate mood and behaviorSkin: Warm and dryMedication:Medications:CA RDIOVASCULAR AGENTS:1. Lisinopril: 10 mg Oral Daily2. Isosorbide Mononitrate Extended Release: 60 mg Oral Daily3. Metoprolol Tartrate: 50 mg Oral Every 12 HoursCENTRAL NERVOUS SYSTEM AGENTS:1. Aspirin Chewable: 81 mg Oral Daily2. HYDROmorphone Injectable: 1 mg IntraVenous Push Every 2 Hours PRN3. Morphine Injectable: 2 mg IntraVenous Push Every 1 Hour PRN4. oxyCODONE 5 mg - Acetaminophen 325 m tablet(s) Oral Every 4 HoursPRN5. Gabapentin: 800 mg Oral 3 Times a Day6. Ondansetron Injectable: 4 mg IntraVenous Push Every 6 Hours PRNCOAGULATION MODIFIERS:1. Enoxaparin SubCutaneous: 40 mg SubCutaneous Every 24 Hours2. Clopidogrel: 75 mg Oral DailyGASTROINTESTINAL AGENTS:1. Pantoprazole: 40 mg Oral DailyGENITOURINARY TRACT AGENTS:1. Oxybutynin: 5 mg Oral 3 Times a DayMETABOLIC AGENTS:1. Simvastatin: 40 mg Oral At BedtimeNUTRITIONAL PRODUCTS:1. Lactated Ringers Infusion: 1000 mL IntraVenous 2. Sodium Chloride 0.9% Injectable Flush: 10 mL IntraVenous Flush Every 8Hours and as Needed PRNRecent Lab Results:Results:I have reviewed these laboratory results:Complete Blood Count 05-Jul-2017 05:18:00Result ValueWhite Blood Cell Count 6.6Red Blood Cell Count 2.33 LHGB 8.0 LHCT 24.0 LMCV 103 HMCHC 33.3PLT 149 LRDW-CV 14.1Basic Metabolic Panel 05-Jul-2017 05:18:00Result ValueGlucose, Serum 90NA 139K 3.9CL 106Bicarbonate, Serum 26Anion Gap, Serum 11BUN 17CREAT 0.74GFR-Non >60GFR- >60Calcium, Serum 7.7 LRadiology Results:Results:I have reviewed this radiology result:Impression:Difficult to compare to the recent CT, but probably unchanged gaseousdistension up to the upper limits of normal for caliber of numeroussmall bowel loops. Ileus could have this appearance. Xray Abdomen AP View [Jul 04 2017 11:03AM]Impression:Low lying ET tube directed toward the right. Recommend retracting by2-3 centimeters.Right laterally directed tip of the left CVC which likely resides inthe distal brachiocephalic vein. Consider advancing into the SVC.Large hiatal hernia without new acute process.Document Only:The critical information above was relayed directly by me bytelephone to Remy Paniagua RN on 07/03/2017 at 1:53 am withreadback verification. 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 The stomachdemonstrates organo-axial orientation without evidence forobstructive volvulus at the esophageal hiatus.Colonic diverticulosis.Cholelithiasi s. CT Abdomen and Pelvis with Contrast [Jul 02 2017 7:20PM]Impression:CT Abdomen and Pelvis with Contrast [Jul 02 2017 7:06PM]Assessment and Plan: 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-2017 20:32 Additional Dx: S/P right hemicolectomy: Entered Date: 03-Jul-2017 00:33 Small bowel obstruction: Entered Date: 02-Jul-2017 20:32 NSTEMI (non-ST elevated myocardial infarction): Entered Date: [id number] UTI (urinary tract infection), bacterial: Entered Date: 27-Dec-2016 20:58 Anemia: Entered Date: 26-Dec-2016 19:03 Lactic acidosis: Entered Date: 26-Dec-2016 19:03 Leukocytosis, unspecified type: Entered Date: 26-Dec-2016 19:02 Hypotension (arterial): Entered Date: 26-Dec-2016 19:02 Pneumonia of right lower lobe due to infectious organism: Entered Date:26-Dec-2016 19:02 Acute encephalopathy: Entered Date: 15-Jun-2014 11:11 Medical History: Gastrocutaneous fistula: Entered Date: 05-Apr-2012 07:05 Constipation: Entered Date: 04-Apr-2012 07:07 Ileus: Entered Date: 14-Mar-2012 08:35 Exploratory laparotomy: Entered Date: 09-Mar-2012 13:08 Anemia due to unknown or multiple mechanisms (disorder): Entered Date:08-Mar-2012 06:47 Transient ischemic colitis (disorder): Entered Date: 07-Mar-2012 07:55 Protein malnutrition unspecified (disorder): Entered Date: 18-Feb-2012 07:07 Hypokalemia (disorder): Entered Date: 15-Feb-2012 08:22 Magnesium deficiency: Entered Date: 15-Feb-2012 08:22 Colitis (disorder): Entered Date: 12-Feb-2012 06:59 Small bowel obstruction (disorder): Entered Date: 11-Feb-2012 19:00 Acute bowel obstruction: Onset Date: 11-Feb-2012, Entered Date: [id number] Generalized abdominal pain (finding): Entered Date: 11-Feb-2012 18:56 Chronic: Fluid overload pulmonary edema: Entered Date: 29-Aug-2012 07:41 Clostridium difficile infection: Entered Date: 28-Aug-2012 07:25 Chest pain: Entered Date: 28-Aug-2012 07:24 Diarrhea: Entered Date: 25-Aug-2012 20:22 Other Dx/Proc: CHEST PAIN: Entered Date: 01-Sep-2012 08:07 Unstable angina/chest pain: Entered Date: 28-Aug-2012 07:28 Gastrointestinal bleeding: Entered Date: 25-Aug-2012 13:51 1 Colitis, 2 Abdomen Pain 3 Cholelithiasis: Onset Date: 03-Apr-2012, EnteredDate: 03-Apr-2012 01:45 Heart failure: Entered Date: 12-Mar-2012 08:44 PNEUMONIA: Entered Date: 11-Mar-2012 20:33 Diabetes mellitus: Entered Date: 31-Dec-2011 14:04 Abdominal pain: Entered Date: 28-Dec-2011 20:11 Electrolyte imbalance: Entered Date: 25-Dec-2009 11:50 Post CABG: Entered Date: 25-Dec-2009 11:50 Coronary artery disease: Entered Date: 14-Dec-2009 11:[address] Elevation Myocardial Infarction (NSTEMI): Entered Date: [id number] Coronary angioplasty/stent (PCI): Entered Date: 12-Dec-2009 15:30 Dyspnea: Entered Date: 12-Dec-2009 12:38 Coronary atherosclerosis: Entered Date: 12-Dec-2009 12:38 Left heart catheterization: Entered Date: 12-Dec-2009 12:36 Hypotension: Entered Date: 09-Sep-2009 15:03 Sepsis: Entered Date: 01-Aug-2009 02:21 Venous thromboembolism: Entered Date: 31-Jul-2009 14:57Comorbidities:Comorbidi ty: anemiaAnemia: acute blood loss anemiaAssessment:1. Cecal volvulus s/p right colectomy-pain meds-encourage IS-Lovenox for DVT prophylaxis2. Lismydaajuns-tcwlzf-xdlw metoprolol, lisinopril, and Imdur-cont to monitor closely3. H/o CAD s/p CABG-I reviewed the EKG, no acute changes, ST elevation, or depression-No obj or subj ACS symptoms-cont metoprolol, statin-Restart ASA, plavix-Monitor on tele-Echo from our office from May 2017 reviewed: LVEF 65%, LVH with diastolicdysfunction, moderate basal septal hypertrophy, dilated RV, mildly decreased RVsystolic function, moderate LAE, mild ARAVIND, mild , trace AI, moderate MR/TR,pseudonormal LV filling, mild pulmonary htn4. Acute kidney injury-BUN/Cr-29/1.25 on admit, currently 17/0.74-Improved with IV fluids-Careful fluid management to prevent acute heart failure5. Elevated glucose-Could be stress response-hgb A1C pending6. Anemia-Monitor closely7. Hyperlipidemia-Lipid panel WNL in February 2017-Cont statinElectronic Signatures:Ventura Thacker) (Signed 06-Jul-2017 07:33) Authored: Signature/Cosignature/Attest ation Co-Signer: Service, Subjective Data, Objective Data, Assessment and Plan,Signature/Cosignature/A ttestationApril Nam (DANCE ARTIST-COMMUNITY LIVING SPECIALIST) (Signed 05-Jul-2017 12:38) Authored: Service, Subjective Data, Objective Data, Assessment and Plan,Signature/Cosignature/A ttestationLast Updated: 06-Jul-2017 07:33 by Ventura Thacker) Normal [facility] Daily Progress Note-Melly merino 07-05-2017 Protein mass conc Service: SurgerySubj ective Data:KATHERINE JUDGE is a 82 year old Female who is Hospital Day # 4 and POD #2 forUS GUIDED PLACEMENT LEFT IJ TLC / ELAP / ANDREIA / RIGHT COLECTOMY / STAPLEDILEOCOLONIC ANASTAMOSIS / BILATERAL TAP BLOCK.Additional Information:Pain is improving. Still passing some flatus. Remains afebrile.Objective Data:Objective Information: T P R BP [id number] 36.9 83 25 143/64 96%Date/Time 07/05 4:00 07/05 7:00 07/05 7:00 07/05 7:00 07/05 7:00Range (36.2C - 36.9C ) (75 - 92 ) (11 - 25 ) (109 - 174 )/(54 - 78 ) (93%- 100% ) As of 05-Jul-2017 07:00:00, patient is on 3 L/min of oxygen via nasal cannula.Highest temp of 36.9 C was recorded at 07/05 4:00 Intake Output Enteral - Oral 90 mL Urine 1550 mL IV Fluids 2528.72 mLPhysical Exam:Constitutional: Cachectic, alert, awake, oriented, lying in bed in no apparentdistressEyes: clear scleraENMT: Mucous membranes moist, no apparent injury, no lesions seenHead/Neck: Left IJ triple lumen catheter in place, neck supple, no apparentinjury, No JVD, trachea midlineRespiratory/Thorax: Patent airways, CTAB, normal breath sounds with good chestexpansion, thorax symmetricCardiovascular: Regular, rate and rhythm, no murmurs, 2+ equal pulses of theextremities, normal S 1and S 2Gastrointestinal: Distended, soft, diffuse tenderness, no rebound tenderness orguarding, no masses palpable, NABSGenitourinary: Soto catheter in placeMusculoskeletal: Weak strength, no joint swellingExtremities: normal extremities, no cyanosis edema, contusions or wounds, noclubbingNeurological: Intact sensesLymphatic: No significant lymphadenopathyPsychological : Appropriate mood and behaviorSkin: Warm and dry, no lesions, no rashesMedication:Medications :CARDIOVASCULAR AGENTS:1. Lisinopril: 10 mg Oral Daily2. Isosorbide Mononitrate Extended Release: 60 mg Oral Daily3. Metoprolol Tartrate: 50 mg Oral Every 12 HoursCENTRAL NERVOUS SYSTEM AGENTS:1. HYDROmorphone Injectable: 1 mg IntraVenous Push Every 2 Hours PRN2. Morphine Injectable: 2 mg IntraVenous Push Every 1 Hour PRN3. oxyCODONE 5 mg - Acetaminophen 325 m tablet(s) Oral Every 4 HoursPRN4. Gabapentin: 800 mg Oral 3 Times a Day5. Ondansetron Injectable: 4 mg IntraVenous Push Every 6 Hours PRNCOAGULATION MODIFIERS:1. Enoxaparin SubCutaneous: 40 mg SubCutaneous Every 24 HoursGASTROINTESTINAL AGENTS:1. Pantoprazole: 40 mg Oral DailyGENITOURINARY TRACT AGENTS:1. Oxybutynin: 5 mg Oral 3 Times a DayMETABOLIC AGENTS:1. Simvastatin: 40 mg Oral At BedtimeNUTRITIONAL PRODUCTS:1. Lactated Ringers Infusion: 1000 mL IntraVenous 2. Sodium Chloride 0.9% Injectable Flush: 10 mL IntraVenous Flush Every 8Hours and as Needed PRNRecent Lab Results:Results:I have reviewed these laboratory results:Complete Blood Count 05-Jul-2017 05:18:00Result ValueWhite Blood Cell Count 6.6Red Blood Cell Count 2.33 LHGB 8.0 LHCT 24.0 LMCV 103 HMCHC 33.3PLT 149 LRDW-CV 14.1Basic Metabolic Panel 05-Jul-2017 05:18:00Result ValueGlucose, Serum 90NA 139K 3.9CL 106Bicarbonate, Serum 26Anion Gap, Serum 11BUN 17CREAT 0.74GFR-Non >60GFR- >60Calcium, Serum 7.7 LRadiology Results:Results:Impression:D ifficult to compare to the recent CT, but probably unchanged gaseousdistension up to the upper limits of normal for caliber of numeroussmall bowel loops. Ileus could have this appearance. Xray Abdomen AP View [Jul 04 2017 11:03AM]Assessment and Plan: 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-2017 20:32 Additional Dx: S/P right hemicolectomy: Entered Date: 03-Jul-2017 00:33Assessment:82-year-old female with PMH of CAD, CHF, CABGx2, anemia, HTN, SBO s/p ex lap [id number] admitted to the ICU for cecal volvulus, SBO, s/p right colectomy POD #2.cecal volvulus (resolved) s/p right colectomy-await bowel function, no laxatives due to ileus-abdominal XR showed possible ileus-Lasix 10mg IV then d/c soto for abdominal distention-Protonix 40mg IV daily-Percocet 5/325mg PO [id number] LR drip to 40ml/hr-encourage sips of water on clear liquid diet-transfer patient to general medical floorSignature/Cosignature/A ttestation:Comments/ Additional FindingsTx to floorElectronic Signatures:Manny Arana) (Signed 05-Jul-2017 10:17) Authored: Signature/Cosignature/Attest atmission hospital Co-Signer: Service, Subjective Data, Objective Data, Assessment and PlanAltagracia Trammell (GLENDA) (Signed 05-Jul-2017 07:56) Authored: Service, Subjective Data, Objective Data, Assessment and PlanLast Updated: 05-Jul-2017 10:17 by Manny Arana) Normal [facility] ABDOMEN AP VIEWon 07-04-2017 ABDOMEN AP VIEW Name: NU, KATHERINE STUDY:TH ABDOMEN AP VIEW; 07/04/2017 9:10 am INDICATION:Signs/Symptoms: ASSESS FOR ILEUS. COMPARISON:CT abdomen and pelvis without contrast 02 Jul 2017 ORDERING CLINICIAN:MANNY ARANA TECHNIQUE:Portable supine KUB FINDINGS:The cutaneous george are present. Gas is in distended but not technically pathologically dilated smallbowel loops. Ileus could have this appearance. Little colonic gas. IMPRESSION:Difficult to compare to the recent CT, but probably unchanged gaseousdistension up to the upper limits of normal for caliber of numeroussmall bowel loops. Ileus could have this appearance. Electronically signed by: ALTAGRACIA MELO MD Normal [facility] BASIC METABOLIC PANELon 05-2 Anion gap 3 molar conc 11 mmol/L Normal 10 - 20 [facility] Comment on above: Performed By: #### B MP ####[id number] [place] [address] Calcium mass conc 8.0 mg/dL Low 8.6 - 10.3 [facility] Comment on above: Performed By: #### B MP ####[address] [place] [address] Chloride molar conc 103 mmol/L Normal 98 - 107 [facility] Comment on above: Performed By: #### B MP ####[address] [place] [address] Creatinine mass conc 1.37 mg/dL High 0.50 - 1.05 [facility] Comment on above: Performed By: #### B MP ####[address] [place] [address] GFR- AM. 45 mL/min/1.73m2 Abnormal >60 [facility] Comment on above: Result Comment: CALC ULATIONS OF ESTIMATED GFR ARE PERFORMED USING THE MDRD STUDY EQUATION FOR THE IDMS-TRACEABLE CREATININE METHODS. CLIN CHEM 2007;53:766-72 Performed By: #### B MP ####[address] [place] [address] GFR-NON AM. 37 mL/min/1.73m2 Abnormal >60 [facility] Comment on above: Performed By: #### B MP ####[facility] [place] [address] Glucose mass conc 111 mg/dL High 74 - 99 [facility] Comment on above: Performed By: #### B MP ####[facility] [place] [address] HCO3 molar conc (Bld) 28 mmol/L Normal 21 - 32 [facility] Comment on above: Performed By: #### B MP ####[address] [place] [address] Potassium molar conc 4.3 mmol/L Normal 3.5 - 5.3 [facility] Comment on above: Performed By: #### B MP ####[address] [place] [address] Sodium molar conc 138 mmol/L Normal 136 - 145 [facility] Comment on above: Performed By: #### B MP ####[address] [place] [address] Urea nitrogen mass conc 34 mg/dL High 6 - 23 [facility] Comment on above: Performed By: #### B MP ####[address] [place] [address] CBCon 07-04-2017 Erythrocyte distribution width Auto Ratio (RBC) 13.8 % Normal 11.5 - 14.5 [facility] Comment on above: Performed By: #### C BC ####[address] [place] [address] Hematocrit Auto Volume Fraction (Bld) 27.1 % Low 36.0 - 46.0 [facility] Comment on above: Performed By: #### C BC ####[address] [place] [address] Hemoglobin mass conc (Bld) 9.3 g/dL Low 12.0 - 16.0 [facility] Comment on above: Performed By: #### C BC ####[address] [place] [address] MCHC Auto mass conc (RBC) 34.3 g/dL Normal 32.0 - 36.0 [facility] Comment on above: Performed By: #### C BC ####[address] [address] MCV Auto Entitic volume (RBC) 101 fL High 80 - 100 [facility] Comment on above: Performed By: #### C BC ####[address] [place] [address] Platelets Auto #/vol (Bld) 169 10*3/uL Normal 150 - 450 [facility] Comment on above: Performed By: #### C BC ####[address] [place] [address] RBC Auto #/vol (Bld) 2.68 x10E12/L Low 4.00 - 5.20 [facility] Comment on above: Performed By: #### C BC ####[address] [place] [address] WBC Auto #/vol (Bld) 6.3 10*3/uL Normal 4.4 - 11.3 [facility] Comment on above: Performed By: #### C BC ####[address] [address] Daily Progress Note-Cardiolo linn 07-04-2017 Protein mass conc Service: CardiologySubjective Data:KATHERINE JUDGE is a 82 year old Female who is Hospital Day # 3 and POD #1 forUS GUIDED PLACEMENT LEFT IJ TLC / ELAP / ANDREIA / RIGHT COLECTOMY / STAPLEDILEOCOLONIC ANASTAMOSIS / BILATERAL TAP BLOCK.Patient denies any chest pain, nonproductive cough noted, no significantshortness of breath no lower extremity edema.Objective Data:Objective Information:---- Intake and Output -----Mn/Dy/Year Time Intake Output NetJuly 04, 2017 6:00 am 0 200 -200May 2017 10:00 pm 678 200 478May 2017 2:00 pm 2001 350 1651The Intake and Output Totals for the last 24 hours are: Intake Output Net 4786 750 1929 T P R BP BdG9Uggus 36.2 82 22 131/63 94%Date/Time 07/04 12:00 07/04 12:00 07/04 12:07/04 12:2:00Range (36.2C - 37.1C ) (81 - 93 ) (11 - 22 ) (91 - 163 )/ (50 - 71 ) (92%- 99% ) As of 04-Jul-2017 11:00:00, patient is on 2 L/min of oxygen via nasal cannulawith humidification.Highest temp of 37.1 C was recorded at 07/04 0:00Physical Exam:Constitutional: Thin elderly female no acute distressEyes: PERRL, EOMI, clear scleraENMT: mucous membranes moist, no apparent injury, no lesions seenHead/Neck: Neck supple, no apparent injury, thyroid without mass or tenderness,No JVD, trachea midline, no bruits, left IJ TLCRespiratory/Thorax: Moderately diminished with coarse crackles anteriorly atthe left baseCardiovascular: Regular, rate and rhythm, no murmurs, 2+ equal pulses of theextremities, normal S 1and S 2Gastrointestinal: Soft, tender abdomen, BS hypoactive, abd dressing dry andintactMusculoskeletal: ROM intact, no joint swelling, normal strengthExtremities: normal extremities, no cyanosis edema, contusions or wounds, noclubbingNeurological: alert and oriented e1Houivzhlazmqr: Appropriate mood and behaviorSkin: Warm and dryMedication:Medications: Continuous Medications ----1. Lactated Ringers Infusion: 1000 mL IntraVenous Scheduled Medications ----1. Ciprofloxacin 400 mg IVPB/ Premixed Soln 200 mL: 200 mL IntraVenousPiggyback Every 12 Hours2. Enoxaparin SubCutaneous: 40 mg SubCutaneous Every 24 Hours3. Gabapentin: 800 mg Oral 3 Times a Day4. Isosorbide Mononitrate Extended Release: 60 mg Oral Daily5. Lisinopril: 10 mg Oral Daily6. Metoprolol Injectable: 5 mg IntraVenous Push Every 6 Hours7. metroNIDAZOLE 500 mg IVPB/ Premixed Soln 100 mL: 100 mL IntraVenousPiggyback Every 8 Hours8. Oxybutynin: 5 mg Oral 3 Times a Day9. Pantoprazole Injectable: 40 mg IntraVenous Push Every 24 Hours10. Simvastatin: 40 mg Oral At Bedtime PRN Medications ----1. HYDROmorphone Injectable: 1 mg IntraVenous Push Every 2 Hours2. Lactated Ringers IV Bolus: 250 mL IntraVenous Piggyback Every 1 Hour3. Morphine Injectable: 2 mg IntraVenous Push Every 1 Hour4. Sodium Chloride 0.9% Injectable Flush: 10 mL IntraVenous Flush Every 8Hours and as NeededRecent Lab Results:Results:I have reviewed these laboratory results:Complete Blood Count 04-Jul-2017 04:51:00Result ValueWhite Blood Cell Count 6.3Red Blood Cell Count 2.68 LHGB 9.3 LHCT 27.1 LMCV 101 HMCHC 34.3PLT 169RDW-CV 13.8Basic Metabolic Panel 04-Jul-2017 04:51:00Result ValueGlucose, Serum 111 HNA 138K 4.3CL 103Bicarbonate, Serum 28Anion Gap, Serum 11BUN 34 HCREAT 1.37 HGFR-Non 37 AGFR- 45 ACalcium, Serum 8.0 LLactate, Level 04-Jul-2017 04:51:00Result ValueLactate, Level 0.9Radiology Results:Results:Impression:D ifficult to compare to the recent CT, but probably unchanged gaseousdistension up to the upper limits of normal for caliber of numeroussmall bowel loops. Ileus could have this appearance. 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 The stomachdemonstrates organo-axial orientation without evidence forobstructive volvulus at the esophageal hiatus.Colonic diverticulosis.Cholelithiasi s. CT Abdomen and Pelvis with Contrast [Jul 02 2017 7:20PM]Assessment and Plan:Comorbidities:Comorbidi ty: anemiaAnemia: acute blood loss anemiaAssessment:1. Cecal volvulus s/p right colectomy-pain meds-encourage IS-Lovenox for DVT prophylaxis2. Lmcfuhtbijzn-qcziat-qqtm metoprolol IV until able to take PO-cont to monitor closely3. H/o CAD s/p CABG-I reviewed the EKG, no acute changes, ST elevation, or depression-No obj or subj ACS symptoms-cont metoprolol IV-Restart ASA, plavix, and statin when ok with surgeon-Monitor on tele-Echo from our office from May 2017 reviewed: LVEF 65%, LVH with diastolicdysfunction, moderate basal septal hypertrophy, dilated RV, mildly decreased RVsystolic function, moderate LAE, mild ARAVIND, mild , trace AI, moderate MR/TR,pseudonormal LV filling, mild pulmonary htn4. Acute kidney injury-BUN/Cr-29/1.25 on admit, currently 34/1.37-Cont IV fluids while NPO, closely monitor renal function5. Elevated glucose-Could be stress response-check hgb A1C6. Anemia-Monitor closely7. Hyperlipidemia-Lipid panel WNL in February 2017-Cont statin when able to eatElectronic Signatures:Ventura Thacker) (Signed 04-Jul-2017 12:14) Authored: Service, Subjective Data, Objective Data, Assessment and Plan,Signature/Cosignature/A ttestationLast Updated: 04-Jul-2017 12:14 by Ventura Thacker) Normal [facility] Daily Progress Note-Surgeryo n 07-04-2017 Protein mass conc Service: SurgerySubj ective Data:KATHERINE JUDGE is a 82 year old Female who is Hospital Day # 3 and POD #1 forUS GUIDED PLACEMENT LEFT IJ TLC / ELAP / ANDREIA / RIGHT COLECTOMY / STAPLEDILEOCOLONIC ANASTAMOSIS / BILATERAL TAP BLOCK.HAVING SOME PAIN THIS AM / SOME FLATUS / NO NAUSEA / UO IMPROVED.Objective Data:Objective Information:---- Intake and Output -----Mn/Dy/Year Time Intake Output NetMay 2017 6:00 am 0 200 -200May 2017 10:00 pm 678 200 478May 2017 2:00 pm 2001 350 1651The Intake and Output Totals for the last 24 hours are: Intake Output Net 5979 750 1929 T P R BP XrI3Hlrnv 36.5 86 15 163/71 98%Date/Time 07/04 4:00 07/04 7:00 07/04 7:00 07/04 7:00 07/04 7:00Range (36.1C - 37.1C ) (81 - 93 ) (11 - 23 ) (71 - 163 )/ (45 - 71 ) (92%- 99% ) As of 04-Jul-2017 07:00:00, patient is on 3 L/min of oxygen via nasal cannula.Highest temp of 37.1 C was recorded at 07/04 0:00Physical Exam:Constitutional: CACHETIC , no distress, alert and cooperativeRespiratory/Thora x: Patent airways, CTAB, normal breath soundsCardiovascular: Regular, rate and rhythm, no murmurs,Gastrointestinal: Nondistended, soft, INCISIONAL TENDERNESS , n0 guarding, nomasses palpable, no organomegaly,Genitourinary: SOTO IN PLACEMusculoskeletal: normal strengthExtremities: normal extremities,Neurological: intact senses, , WEAK strengthLymphatic: No significant lymphadenopathyPsychological : Appropriate mood and behaviorRecent Lab Results:Results:I have reviewed these laboratory results:Complete Blood Count 04-Jul-2017 04:51:00Result ValueWhite Blood Cell Count 6.3Red Blood Cell Count 2.68 LHGB 9.3 LHCT 27.1 LMCV 101 HMCHC 34.3PLT 169RDW-CV 13.8Basic Metabolic Panel 04-Jul-2017 04:51:00Result ValueGlucose, Serum 111 HNA 138K 4.3CL 103Bicarbonate, Serum 28Anion Gap, Serum 11BUN 34 HCREAT 1.37 HGFR-Non 37 AGFR- 45 ACalcium, Serum 8.0 LAssessment and Plan: 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-2017 20:32 Additional Dx: S/P right hemicolectomy: Entered Date: 03-Jul-2017 00:33 Small bowel obstruction: Entered Date: 02-Jul-2017 20:32 Anemia: Entered Date: 26-Dec-2016 19:03 Lactic acidosis: Entered Date: 26-Dec-2016 19:03 Hypotension (arterial): Entered Date: 26-Dec-2016 19:02Assessment:PLAN - AWAIT BOWEL FUNCTION/ PT/OT/ START GABAPENTIN/ SIPP OF WATER / OUB TOCHAIR CONTINUE IV ABX AND LOPRESSOR / FOLLOW UOSCIP Measures:Urinary Catheter Removed Post-Op Day 2: noReason Patient Needs Soto: Strict I&0Patient on Beta Simon Prior to Admission: yesProphylactic antibiotics scheduled to be discontinued with 24 hr of anesthesiaend time (48 hr for cardiac surgery): N/A, patient not on prophylacticantibioticsElect ronic Signatures:Manny Arana) (Signed 04-Jul-2017 07:48) Authored: Service, Subjective Data, Objective Data, Assessment and Plan, SCIPMeasures, Signature/Cosignature/Attest ationLast Updated: 04-Jul-2017 07:48 by Manny Arana) Normal [facility] LACTATEon 07-04-2017 Lactate molar conc 0.9 mmol/L Normal 0.4 - 2.0 [facility] Comment on above: Result Comment: Hali puncture immediately after or during the administration of Metamizole may lead to falsely low results. Testing should be performed immediately prior to Metamizole dosing. Performed By: #### L ACT ####[address] [address] ARTERIAL BLOOD GASon 018 JACKIE'S TEST[COLLATERAL CIRCULATION] Positive Normal [facility] Comment on above: Result Comment: abg done on vent asv mode 100% mv, 60% fio2. results given to nurse remy ingriceldau Performed By: #### L IPID ####[id number] [place] [address] SITE OF ARTERIAL PUNCTURE RIGHT RADIAL Normal [facility] Comment on above: Performed By: #### L IPID ####[address] [place] [address] BASE EXCESS-BLOOD -0.7 mmol/L Normal -2.0 - 3.0 [facility] Comment on above: Performed By: #### L IPID ####[address] [place] [address] FIO2 60 % Normal [facility] Comment on above: Performed By: #### L IPID ####[address] [place] [address] Oxygen ppres (BldA) 109 mm[Hg] High 85 - 95 [facility] Comment on above: Performed By: #### L IPID ####[facility] [place] [address] PCO2 36 mmHg Low 38 - 42 [facility] Comment on above: Performed By: #### L IPID ####[facility] [place] [address] RBC Auto #/vol (Bld) 23.4 mmol/L Normal 22.0 - 26.0 [facility] Comment on above: Performed By: #### L IPID ####[facility] [place] [address] SO2 98 % Normal 94 - 100 [facility] Comment on above: Performed By: #### L IPID ####[address] [place] [address] pH (Bld) 7.42 [pH] Normal 7.38 - 7.42 [facility] Comment on above: Performed By: #### L IPID ####[address] [place] [address] CBCon 07-03-2017 Erythrocyte distribution width Auto Ratio (RBC) 13.9 % Normal 11.5 - 14.5 [facility] Comment on above: Performed By: #### V TDOH ####[facility] [place] [address] Hematocrit Auto Volume Fraction (Bld) 38.6 % Normal 36.0 - 46.0 [facility] Comment on above: Performed By: #### V TDOH ####[facility] [place] [address] Hemoglobin mass conc (Bld) 12.7 g/dL Normal 12.0 - 16.0 [facility] Comment on above: Performed By: #### V TDOH ####[facility] [place] [address] MCHC Auto mass conc (RBC) 32.9 g/dL Normal 32.0 - 36.0 [facility] Comment on above: Performed By: #### V TDOH ####[facility] [place] [address] MCV Auto Entitic volume (RBC) 102 fL High 80 - 100 [facility] Comment on above: Performed By: #### V TDOH ####[facility] [place] [address] Platelets Auto #/vol (Bld) 214 10*3/uL Normal 150 - 450 [facility] Comment on above: Performed By: #### V TDOH ####[facility] [place] [address] RBC Auto #/vol (Bld) 3.79 x10E12/L Low 4.00 - 5.20 [facility] Comment on above: Performed By: #### V TDOH ####[facility] [place] [address] WBC Auto #/vol (Bld) 6.4 10*3/uL Normal 4.4 - 11.3 [facility] Comment on above: Performed By: #### V TDOH ####[facility] [place] [address] Erythrocyte distribution width Auto Ratio (RBC) 13.8 % Normal 11.5 - 14.5 [facility] Comment on above: Performed By: #### L IPID ####[address] [place] [address] Hematocrit Auto Volume Fraction (Bld) 43.6 % Normal 36.0 - 46.0 [facility] Comment on above: Performed By: #### L IPID ####[address] [place] [address] Hemoglobin mass conc (Bld) 14.2 g/dL Normal 12.0 - 16.0 [facility] Comment on above: Performed By: #### L IPID ####[address] [place] [address] MCHC Auto mass conc (RBC) 32.6 g/dL Normal 32.0 - 36.0 [facility] Comment on above: Performed By: #### L IPID ####[address] [place] [address] MCV Auto Entitic volume (RBC) 103 fL High 80 - 100 [facility] Comment on above: Performed By: #### L IPID ####[facility] [place] [address] Platelets Auto #/vol (Bld) 236 10*3/uL Normal 150 - 450 [facility] Comment on above: Performed By: #### L IPID ####[facility] [place] [address] RBC Auto #/vol (Bld) 4.24 x10E12/L Normal 4.00 - 5.20 [facility] Comment on above: Performed By: #### L IPID ####[facility] [place] [address] WBC Auto #/vol (Bld) 4.7 10*3/uL Normal 4.4 - 11.3 [facility] Comment on above: Performed By: #### L IPID ####[facility] [place] [address] CHEST 1 VIEWon 07-03-2017 CHEST 1 VIEW Name: KATHERINE JUDGE STUDY:CHEST 1 VIEW; 07/03/2017 1:47 am INDICATION:Signs/Symptoms: LINE PLACMENT. COMPARISON:12/26/2016 ORDERING CLINICIAN:MANNY ARANA FINDINGS:The ET tube tip appears to reside approximately 2-3 cm above thecarina and is directed toward the right.The left central venous catheter tip is directed laterally to theright and is likely within the distal left brachiocephalic vein. The cardiomediastinal silhouette is enlarged due to large hiatalhernia, which also accounts for right basilar opacity. There is noevidence of a new airspace opacity. No pneumothorax. IMPRESSION:Low lying ET tube directed toward the right. Recommend retracting by2-3 centimeters.Right laterally directed tip of the left CVC which likely resides inthe distal brachiocephalic vein. Consider advancing into the SVC.Large hiatal hernia without new acute process. Document Only:The critical information above was relayed directly by mo bytelephone to Remy Paniagua RN on 07/03/2017 at 1:53 am withreadback verification.Electronically signed by: BLU ACEVEDO MD Normal [facility] COMPREHENSIVE PANELon 2017 Albumin mass conc 2.7 g/dL Low 3.4 - 5.0 [facility] Comment on above: Performed By: #### V TDOH ####[facility] [place] [address] ALP enzyme act/vol 36 U/L Normal 33 - 136 [facility] Comment on above: Performed By: #### V TDOH ####[facility] [place] [address] ALT enzyme act/vol 19 U/L Normal 7 - 45 [facility] Comment on above: Result Comment: Viv ents treated with Sulfasalazine may generate falsely decreased results for ALT. Performed By: #### V TDOH ####[facility] [place] [address] Anion gap 3 molar conc 14 mmol/L Normal 10 - 20 [facility] Comment on above: Performed By: #### V TDOH ####[facility] [place] [address] AST enzyme act/vol 21 U/L Normal 9 - 39 [facility] Comment on above: Performed By: #### V TDOH ####[facility] [place] [address] Bilirubin mass conc 1.1 mg/dL Normal 0.0 - 1.2 [facility] Comment on above: Performed By: #### V TDOH ####[facility] [place] [address] Calcium mass conc 8.3 mg/dL Low 8.6 - 10.3 [facility] Comment on above: Performed By: #### V TDOH ####[facility] [place] [address] Chloride molar conc 105 mmol/L Normal 98 - 107 [facility] Comment on above: Performed By: #### V TDOH ####[facility] [place] [address] Creatinine mass conc 1.12 mg/dL High 0.50 - 1.05 [facility] Comment on above: Performed By: #### V TDOH ####[facility] [place] [address] GFR- AM. 57 mL/min/1.73m2 Abnormal >60 [facility] Comment on above: Result Comment: CALC ULATIONS OF ESTIMATED GFR ARE PERFORMED USING THE MDRD STUDY EQUATION FOR THE IDMS-TRACEABLE CREATININE METHODS. CLIN CHEM 2007;53:766-72 Performed By: #### V TDOH ####[facility] [place] [address] GFR-NON AM. 47 mL/min/1.73m2 Abnormal >60 [facility] Comment on above: Performed By: #### V TDOH ####[facility] [place] [address] Glucose mass conc 148 mg/dL High 74 - 99 [facility] Comment on above: Performed By: #### V TDOH ####[facility] [place] [address] HCO3 molar conc (Bld) 22 mmol/L Normal 21 - 32 [facility] Comment on above: Performed By: #### V TDOH ####[facility] [place] [address] Potassium molar conc 3.9 mmol/L Normal 3.5 - 5.3 [facility] Comment on above: Performed By: #### V TDOH ####[facility] [place] [address] Protein mass conc 5.4 g/dL Low 6.4 - 8.2 [facility] Comment on above: Performed By: #### V TDOH ####[facility] [place] [address] Sodium molar conc 137 mmol/L Normal 136 - 145 [facility] Comment on above: Performed By: #### V TDOH ####[facility] [place] [address] Urea nitrogen mass conc 31 mg/dL High 6 - 23 [facility] Comment on above: Performed By: #### V TDOH ####[facility] [place] [address] Albumin mass conc 3.0 g/dL Low 3.4 - 5.0 [facility] Comment on above: Performed By: #### V TDOH ####[facility] [place] [address] ALP enzyme act/vol 41 U/L Normal 33 - 136 [facility] Comment on above: Performed By: #### V TDOH ####[facility] [place] [address] ALT enzyme act/vol 19 U/L Normal 7 - 45 [facility] Comment on above: Result Comment: Viv ents treated with Sulfasalazine may generate falsely decreased results for ALT. Performed By: #### V TDOH ####[facility] [place] [address] Anion gap 3 molar conc 16 mmol/L Normal 10 - 20 [facility] Comment on above: Performed By: #### V TDOH ####[facility] [place] [address] AST enzyme act/vol 22 U/L Normal 9 - 39 [facility] Comment on above: Performed By: #### V TDOH ####[facility] [place] [address] Bilirubin mass conc 1.0 mg/dL Normal 0.0 - 1.2 [facility] Comment on above: Performed By: #### V TDOH ####[facility] [place] [address] Calcium mass conc 8.8 mg/dL Normal 8.6 - 10.3 [facility] Comment on above: Performed By: #### V TDOH ####[facility] [place] [address] Chloride molar conc 103 mmol/L Normal 98 - 107 [facility] Comment on above: Performed By: #### V TDOH ####[facility] [place] [address] Creatinine mass conc 1.12 mg/dL High 0.50 - 1.05 [facility] Comment on above: Performed By: #### V TDOH ####[facility] [place] [address] GFR- AM. 57 mL/min/1.73m2 Abnormal >60 [facility] Comment on above: Result Comment: CALC ULATIONS OF ESTIMATED GFR ARE PERFORMED USING THE MDRD STUDY EQUATION FOR THE IDMS-TRACEABLE CREATININE METHODS. CLIN CHEM 2007;53:766-72 Performed By: #### V TDOH ####[facility] [place] [address] GFR-NON AM. 47 mL/min/1.73m2 Abnormal >60 [facility] Comment on above: Performed By: #### V TDOH ####[facility] [place] [address] Glucose mass conc 157 mg/dL High 74 - 99 [facility] Comment on above: Performed By: #### V TDOH ####[facility] [place] [address] HCO3 molar conc (Bld) 22 mmol/L Normal 21 - 32 [facility] Comment on above: Performed By: #### V TDOH ####[facility] [place] [address] Potassium molar conc 4.1 mmol/L Normal 3.5 - 5.3 [facility] Comment on above: Performed By: #### V TDOH ####[facility] [place] [address] Protein mass conc 6.0 g/dL Low 6.4 - 8.2 [facility] Comment on above: Performed By: #### V TDOH ####[facility] [place] [address] Sodium molar conc 137 mmol/L Normal 136 - 145 [facility] Comment on above: Performed By: #### V TDOH ####[facility] [place] [address] Urea nitrogen mass conc 29 mg/dL High 6 - 23 [facility] Comment on above: Performed By: #### V TDOH ####[facility] [place] [address] Consult-Cardiologyon 018 Consult-Cardiology Service:Service: CardiologyConsult:Consult requested by (Attending Name): Dr. Brand: Cardiac managementHistory of Present Illness:Admission Reason: Abdominal painHPI:Katherine is an 82 year old female with a PMH of coronary artery disease, statuspost 2013 circumflex angioplasty, status post bypass patent SVG to the RCA,atretic STRONG to the obtuse marginal, mild diffuse disease in the left main andLAD, hypertension, hyperlipidemia, anemia, and gastrointestinal bleeding. Shepresented to the ER with complaints of mid abdominal pain. The pain started onWe but progressively got worse yesterday. She states she had a normal BMyesterday morning and then diarrhea in the afternoon. 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 Her BUN/cr was 29/1.25, lipase 455, and WBC 12.8. She was taken tosurgery and had a right colectomy with stapled ileocolonic anastamosis. She wasleft intubated post op and admitted to the ICU for further care. She currentlydenies chest pain, shortness of breath, dizziness, or palpitations.Past Medical/Surgical History: Medical History: Gastrocutaneous fistula: Constipation: Ileus: Exploratory laparotomy: Anemia due to unknown or multiple mechanisms (disorder): Transient ischemic colitis (disorder): Protein malnutrition unspecified (disorder): Hypokalemia (disorder): Magnesium deficiency: Colitis (disorder): Small bowel obstruction (disorder): Acute bowel obstruction: Onset Date: 11-Feb-2012 Acute bowel obstruction: Acute bowel obstruction: Generalized abdominal pain (finding):Review Family/Social History and ROS:Family History:Family History: reviewed and not pertinent to presenting problemSocial History:Social History: denies smoking, 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: NEGATIVE: Fever, Chills, Anorexia, Weight Loss, MalaiseEyes: NEGATIVE: Blurry Vision, Drainage, Diploplia, Redness, Vision Loss/ChangeENMT: NEGATIVE: Nasal Discharge, Nasal Congestion, Ear Pain, Mouth Pain, ThroatPainRespiratory: NEGATIVE: Dry Cough, Productive Cough, Hemoptysis, Wheezing,Shortness of BreathCardiac: NEGATIVE: Chest Pain, Dyspnea on Exertion, Orthopnea, Palpitations,SyncopeGastroin testinal: POSITIVE: Abdominal Pain; NEGATIVE: Nausea, Vomiting,Diarrhea, ConstipationGenitourinary: NEGATIVE: Discharge, Dysuria, Flank Pain, Frequency, HematuriaMusculoskeletal: NEGATIVE: Decreased ROM, Pain, Swelling, Stiffness, WeaknessNeurological: NEGATIVE: Dizziness, Confusion, Headache, Seizures, SyncopePsychiatric: NEGATIVE: Mood Changes, Anxiety, Hallucinations, Sleep Changes,Suicidal IdeasSkin: NEGATIVE: Mass, Pain, Pruritus, Rash, UlcerEndocrine: NEGATIVE: Heat Intolerance, Cold Intolerance, Sweat, Polyuria,ThirstHematologic/L ymph: NEGATIVE: Anemia, Bruising, Easy Bleeding, Night Sweats,PetechiaeAllergic/Imm unologic: NEGATIVE: Anaphylaxis, Itchy/ Teary Eyes, Itching,Sneezing, Swelling Allergies:? Lincocin: Rash? penicillin: Rash? tetracycline: Rash? erythromycin: Rash? Keflex: Syncope? Lunesta: Unknown? penicillin G benzathine: Unknown? Biaxin: Unknown? trazodone: Unknown? Clindamycin Hydrochloride: Unknown? aspirin: GI Bleeding? Vioxx: Bleeding? NSAIDs: GI Bleeding? Mold/Fungi: Unknown? Pollen: Unknown Intolerances:? Ativan: Confusion? Restoril: ConfusionObjective:Objective Information: T P R BP [id number] 36.5 87 21 103/55 95%Date/Time 07/03 8:07/03 8:00 07/03 8:00 07/03 8:00 07/03 8:00Range (36.2C - 36.6C ) (65 - 90 ) (10 - 21 ) (90 - 132 )/ (50 - 69 ) (93%- 100% ) As of 03-Jul-2017 08:00:00, patient is on 4 L/min of oxygen via nasal cannula. Weights07/03 6:00: Weight in kg (Weight (kg)) 53.85/25 6:00: Weight in lbs ((lbs)) 118.75/24 20:49: BMI (kg/m2) (BMI (kg/m2)) 21.312Physical Exam:Constitutional: Well developed, awake/alert/oriented x3, no distress, alert andcooperativeEyes: PERRL, EOMI, clear scleraENMT: mucous membranes moist, no apparent injury, no lesions seenHead/Neck: Neck supple, no apparent injury, thyroid without mass or tenderness,No JVD, trachea midline, no bruits, left IJ TLCRespiratory/Thorax: Patent airways, CTAB, normal breath sounds with good chestexpansion, thorax symmetricCardiovascular: Regular, rate and rhythm, no murmurs, 2+ equal pulses of theextremities, normal S 1and S 2Gastrointestinal: Soft, tender abdomen, BS hypoactive, abd dressing dry andintactMusculoskeletal: ROM intact, no joint swelling, normal strengthExtremities: normal extremities, no cyanosis edema, contusions or wounds, noclubbingNeurological: alert and oriented [id number]: Appropriate mood and behaviorSkin: Warm and dryMedications:Medications:C ARDIOVASCULAR AGENTS:1. Metoprolol Injectable: 2.5 mg IntraVenous Push Every 6 HoursCENTRAL NERVOUS SYSTEM AGENTS:1. HYDROmorphone Injectable: 1 mg IntraVenous Push Every 2 Hours PRN2. Morphine Injectable: 2 mg IntraVenous Push Every 1 Hour PRNCOAGULATION MODIFIERS:1. Enoxaparin SubCutaneous: 40 mg SubCutaneous Every 24 HoursGASTROINTESTINAL AGENTS:1. Pantoprazole Injectable: 40 mg IntraVenous Push Every 24 HoursNUTRITIONAL PRODUCTS:1. Lactated Ringers Infusion: 1000 mL IntraVenous 2. Sodium Chloride 0.9% Injectable Flush: 10 mL IntraVenous Flush Every 8Hours and as Needed PRNRecent Lab Results:Results:I have reviewed these laboratory results:Complete Blood Count Trending ViewResult 03-Jul-2017 05:20:00 03-Jul-2017 02:05:00White Blood Cell Count 6.4 4.7Red Blood Cell Count 3.79 L 4.24HGB 12.7 14.2HCT 38.6 43.6MCV 102 H 103 HMCHC 32.9 32.6PLT 214 236RDW-CV 13.9 13.8Comprehensive Metabolic Panel Trending ViewResult 03-Jul-2017 05:20:00 03-Jul-2017 02:05:00 02-Jul-2017 15:44:00Glucose, Serum 148 H 157 H 127 HNA 137 137 139K 3.9 4.1 3.8CL 105 103 98Bicarbonate, Serum 22 22 32Anion Gap, Serum 14 16 13BUN 31 H 29 H 29 HCREAT 1.12 H 1.12 H 1.25 HGFR-Non 47 A 47 A 41 AGFR- 57 A 57 A 50 ACalcium, Serum 8.3 L 8.8 10.9 HALB 2.7 L 3.0 L 4.7ALKP 36 41 62T Pro 5.4 L 6.0 L 9.3 HT Bili 1.1 1.0 1.0Alanine Aminotransferase, Serum 19 19 33Aspartate Transaminase, Serum 21 22 34Lactate, Level Trending ViewResult 03-Jul-2017 05:20:00 03-Jul-2017 02:05:00 02-Jul-2017 17:00:00Lactate, Level 3.0 H 2.9 H 1.5Magnesium, Serum 03-Jul-2017 02:05:00Result ValueMagnesium, Serum 1.73Phosphorus, Serum 03-Jul-2017 02:05:00Result ValuePhosphorus, Serum 3.7Blood Gas, Arterial 03-Jul-2017 01:10:00Result ValuepH, Arterial 7.42pCO2, Arterial 36 LpO2, Arterial 109 HPatient-Temperature 37.0FIO2 60SO2, Arterial 98Base Excess-Blood -0.7Bicarbonate, Calculated, Arterial 23.4Site of Arterial Puncture RIGHT RADIALAllen's Test (Collateral Circulation) POSITIVEUrinalysis 02-Jul-2017 15:45:00Result ValueColor, Urine MARINA Reference Range: STRAW,YELLOWAppearance, Urine HAZYSpecific Max, Urine 1.026pH, Urine 5.0Protein, Urine 30(1+) AGlucose, Urine NEGATIVEBlood, Urine NEGATIVEKetones, Urine NEGATIVEBilirubin, Urine NEGATIVEUrobilinogen, Urine <2.0Nitrite, Urine NEGATIVELeukocyte Esterase, Urine TRACE AUrinalysis, Microscopic 02-Jul-2017 15:45:00Result ValueWhite Cells 3 ARed Blood Cells 1 AEpithelial Cells, Squamous 2Bacteria, Urine 1+ AMucous 1+Hyaline Casts 4+ AComplete Blood Count + Differential 02-Jul-2017 15:44:00Result ValueWhite Blood Cell Count 12.8 HRed Blood Cell Count 4.49HGB 15.0HCT 44.8MCV 100MCHC 33.5PLT 260RDW-CV 13.6Neutrophil % 83.4Immature Granulocytes % 0.4Lymphocyte % 12.8 LMonocyte % 3.1Eosinophil % 0.1Basophil % 0.2Neutrophil Count 10.64 HLymphocyte Count 1.63Monocyte Count 0.40Eosinophil Count 0.01Basophil Count 0.03Lipase, Serum 02-Jul-2017 15:44:00Result ValueLipase, Serum 455 HRadiology Results:Results:I have reviewed this radiology result:Impression:Low lying ET tube directed toward the right. Recommend retracting by2-3 centimeters.Right laterally directed tip of the left CVC which likely resides inthe distal brachiocephalic vein. Consider advancing into the SVC.Large hiatal hernia without new acute process.Document Only:The critical information above was relayed directly by me bytelephone to Remy Paniagua RN on 07/03/2017 at 1:53 am withreadback verification. 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 The stomachdemonstrates organo-axial orientation without evidence forobstructive volvulus at the esophageal hiatus.Colonic diverticulosis.Cholelithiasi s. CT Abdomen and Pelvis with Contrast [Jul 02 2017 7:20PM]Impression:CT Abdomen and Pelvis with Contrast [Jul 02 2017 7:06PM]Assessment:1. Cecal volvulus s/p right colectomy-Extubated this morning-Sitting up in chair during exam-Surgery managing, notes reviewed-pain meds-encourage IS-Lovenox for DVT prophylaxis2. Hypertension-stable, BP borderline-cont metoprolol IV until able to take PO-cont to monitor closely3. H/o CAD s/p CABG-I reviewed the EKG, no acute changes, ST elevation, or depression-No obj or subj ACS symptoms-cont metoprolol IV-Restart ASA, plavix, and statin when ok with surgeon-Monitor on tele-Echo from our office from May 2017 reviewed: LVEF 65%, LVH with diastolicdysfunction, moderate basal septal hypertrophy, dilated RV, mildly decreased RVsystolic function, moderate LAE, mild ARAVIND, mild , trace AI, moderate MR/TR,pseudonormal LV filling, mild pulmonary htn4. Acute kidney injury-BUN/Cr-29/1.25 on admit-Improved after IV fluids and surgery-Most likely due to acute abdomen-Cont IV fluids while NPO5. Elevated glucose-Could be stress response-check hgb A1C6. Xqfqsp-Mhoirj-Yaopywp closely post op7. Hyperlipidemia-Lipid panel WNL in February 2017-Cont statin when able to eatCritical care time 45 minutesElectronic Signatures:Ventura Thacker) (Signed 05-Jul-2017 11:39) Authored: Signature/Cosignature/Attest ation Co-Signer: Service, History of Present Illness, Past Medical/Surgical History,Review Family/Social History and ROS, Allergies, Objective,Assessment/Recomme ndations, Signature/Cosignature/Attest April Sherman ([employer]ANCE [employer]-[facility]) (Signed 03-Jul-2017 09:53) Authored: Service, History of Present Illness, Past Medical/Surgical History,Review Family/Social History and ROS, Allergies, Objective,Assessment/Recomme ndations, Signature/Cosignature/Attest ationLast Updated: 05-Jul-2017 11:39 by Ventura Thacker) Normal [facility] Consult-Surgeryon 07-03-2017 Consult-Surgery This report has been cancelled. Normal [facility] Daily Progress Note - Critic al Care-SICUon 07-03-2017 Protein mass conc Service:Critical Car e Service:? Service SICUSubjective Data:ID Statement:82-year-old female with PMH of CAD, CHF, CABGx2, anemia, HTN, SBO s/p ex lap [id number] admitted to the ICU for cecal volvulus, SBO, s/p right colectomy POD #1.Patient presented to the [place] ED 07/02/17 complaining of severe periumbilicalabdominal pain. She was assessed and determined to have an acute surgicalabdomen. In the ED, lactate was normal, WBC normal, lipase normal, CT performedand showed cecal volvulus and obstruction. Patient has had multiple abdominalsurgeries. Patient was taken to the OR for emergent laparotomy. Patienttolerated the procedure well and there were no complications. Patient wastransferred to the ICU on mechanical ventilation and propofol infusion.Objective Data:? Objective Information T P R BP [id number] 36.1 81 18 135/58 94%Date/Time 07/03 12:00 07/03 13:07/03 13:07/03 13:3:00Range (36.1C - 36.6C ) (65 - 93 ) (10 - 23 ) (71 - 135 )/ (45 - 69 ) (93%- 100% ) As of 03-Jul-2017 13:00:00, patient is on 3 L/min of oxygen via nasal cannula.Pain at Rest reported at 07/03 13:00: 2Cardiac HemodynamicsCardiac Output (L/min) 4.8 (3.2 - 4.9) 07/03 13:00Cardiac Index (L/min/m2) 3.2 (2.1 - 3.2) 07/03 13:00SV (mL/beat) 59 (37 - 60) 07/03 13:00---- Intake and Output -----Mn/Dy/Year Time Intake Output NetMay 2017 6:00 am 1500 150 1350The Intake and Output Totals for the last 24 hours are: Intake Output Net 2978 917 9877 Drain and tube details (included in I&O totals)100 cc Indwelling Catheter - Urethral( 03-Jul-2017 06:00:00 ) Weights07/03 6:00: Weight in kg (Weight (kg)) 53.85 6:00: Weight in lbs ((lbs)) 118.75/24 20:49: BMI (kg/m2) (BMI (kg/m2)) 21.312Physical Exam:Physical Exam:Neurological: sedated, but arousable and following commandsCardiovascular: Regular, rate and rhythm, no murmurs, 2+ equal pulses of theextremities, normal S 1and S 2Respiratory/Thorax: Patent airways, CTAB, normal breath sounds with good chestexpansion, thorax symmetricGenitourinary: Soto catheter in placeGastrointestinal: Nondistended, soft, diffuse tenderness, no rebound tendernessor guarding, no masses palpable, NABSSkin: Warm and dry, no lesions, no rashesMusculoskeletal: no joint swellingConstitutional: Cachectic, arousable, following commands, lying in bed in noapparent distressEyes: clear scleraENMT: Endotracheal tube in place, NG tube in place, mucous membranes moist, noapparent injury, no lesions seenHead/Neck: Left IJ triple lumen catheter in place, neck supple, no apparentinjury, No JVD, trachea midlineExtremities: normal extremities, no cyanosis edema, contusions or wounds, noclubbingLymphatic: No significant lymphadenopathyNIHSS:Level of Consciousness: 1 = drowsyGlasgow T Coma Scale:Best Eye Response: (E4) spontaneousBest Motor Response: (M6) obeys commandsBest Verbal Response: (V1) noneGlasgow Score: 11 Intubated or Trached: yesAllergies: Allergies:? Lincocin: Rash? penicillin: Rash? tetracycline: Rash? erythromycin: Rash? Keflex: Syncope? Lunesta: Unknown? penicillin G benzathine: Unknown? Biaxin: Unknown? trazodone: Unknown? Clindamycin Hydrochloride: Unknown? aspirin: GI Bleeding? Vioxx: Bleeding? NSAIDs: GI Bleeding? Mold/Fungi: Unknown? Pollen: Unknown Intolerances:? Ativan: Confusion? Restoril: ConfusionMedications:Medicat ions:ANTI-INFECTIVES:1. metroNIDAZOLE 500 mg IVPB/ Premixed Soln 100 mL: 100 mL IntraVenousPiggyback Every 8 Hours2. Ciprofloxacin 400 mg IVPB/ Premixed Soln 200 mL: 200 mL IntraVenousPiggyback Every 12 HoursCARDIOVASCULAR AGENTS:1. Metoprolol Injectable: 2.5 mg IntraVenous Push Every 6 HoursCENTRAL NERVOUS SYSTEM AGENTS:1. HYDROmorphone Injectable: 1 mg IntraVenous Push Every 2 Hours PRN2. Morphine Injectable: 2 mg IntraVenous Push Every 1 Hour PRNCOAGULATION MODIFIERS:1. Enoxaparin SubCutaneous: 40 mg SubCutaneous Every 24 HoursGASTROINTESTINAL AGENTS:1. Pantoprazole Injectable: 40 mg IntraVenous Push Every 24 HoursNUTRITIONAL PRODUCTS:1. Lactated Ringers Infusion: 1000 mL IntraVenous 2. Lactated Ringers IV Bolus: 250 mL IntraVenous Piggyback Every 1 HourPRN3. Sodium Chloride 0.9% Injectable Flush: 10 mL IntraVenous Flush Every 8Hours and as Needed PRNRecent Lab Results:Results:CBC: 07/03/2017 05:20 \ Hgb / \ 12.7 /WBC Plt 6.4 214 / Hct \ / 38.6 \RBC: 3.79 L MCV: 102 H Neutrophil %: 83.4CMP: 07/03/2017 05:20NA+ Cl- BUN / 137 105 31 H / ----- Glucose ------ 148 H K+ HCO3- Creat \ 3.9 22 1.12 H \ \ T Bili / \ 1.1 /AST x ---- x ALT null x ---- x 19 / Alk P \ / 36 \Calcium : 8.3 L Anion Gap : 14 Albumin : 2.7 L T Protein : 5.4 L Recent Arterial Blood Gas Results 07/03/2017 01:10pO2 109pH 7.42pCO2 36SO2 98Base Excess -0.7Bicarbonate 23.4I have reviewed these laboratory results:Lactate, Level 03-Jul-2017 08:23:00Result ValueLactate, Level 2.6 HResults:Impression:Findings consistent with a cecal volvulus resulting in severeproximal upgrade obstruction.Large hiatal hernia containing the stomach and pancreas. The stomachdemonstrates organo-axial orientation without evidence forobstructive volvulus at the esophageal hiatus.Colonic diverticulosis.Cholelithiasi s. CT Abdomen and Pelvis with Contrast [Jul 02 2017 7:20PM]Assessment and Plan:Neurology:Diagnosis:No acute issues, pain managementAssessment: awake, alert, following commands. Mild distressPlan: -continue Dilaudid for pain control-monitor for mental status changesCardiovascular:Diagno sis:No acute issues, h/o CAD CHF, PIEYo3Nfelgioqvr: HR normal. NSR on ECGPlan: -cardiology following-continue metoprololPulmonary:Diagnosi s:No acute issuesAssessment: Patient on 3L NCPlan: -Patient extubated and placed on 3L NC-Maintain SpO2 above 92%Renal:Diagnosis:No acute issuesAssessment: Elevated BUN/CrPlan: -Monitor fluid and electrolyte status -monitor UOP and response to fluid-continue LR, bolus of LR 500ml/4hrFluid/Electrolyte/N utrition:Diagnosis:Hypotensi onAssessment: Hypotension likely due to hypovolemiaPlan: -Monitor UOP-Continue LR infusion and sequential boluses to maintain BPGastroenterology:Diagnosis :cecal volvulus (resolved) s/p right colectomyAssessment: Patient has good bowel soundsPlan: Await Bowel functionEndocrine:Diagnosis: No acute issuesAssessment: blood sugars stablePlan: continue to monitor blood sugarsHematology:Diagnosis:N o acute issues, h/o anemiaAssessment: H/H stablePlan: Lovenox and SCD for VTE prophylaxisSkin:Diagnosis:No acute issuesAssessment: No rashesPlan: Continue to monitorMusculoskelatal:Diagn osis:No acute issuesCode Status:? Code Status Full CodeInfectious Disease:Assessment:No apparent source of infection. Empiric antibiotics for sepsis protocolDay of Antibiotic Therapy: 1Plan: -elevated lactate likely due to hypovolemia -Continue Cipro and Flagyl per sepsis protocol-received 2 doses of antibiotics pre and intra-opInvasive Line: Date Inserted/Location: Left IJ central line. Inserted 07/02/17Prophylaxis:DVT Prophylaxis Ordered: yesHead of Bed @ 30 Degrees: yesDate Soto Inserted: [id number]:Urinary Catheter Removed Post-Op Day 2: noReason Patient Needs Soto: Strict I&0Patient on Beta Simon Prior to Admission: yesRestarted on Beta Simon by Post-Op Day 2: yesProphylactic antibiotics scheduled to be discontinued with 24 hr of anesthesiaend time (48 hr for cardiac surgery): N/A, patient not on prophylacticantibioticsType of VTE Prophylaxis Ordered: LovenoxProblem List: 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-2017 20:32 Additional Dx: S/P right hemicolectomy: Entered Date: 03-Jul-2017 00:33 Small bowel obstruction: Entered Date: 02-Jul-2017 20:32 Lactic acidosis: Entered Date: 26-Dec-2016 19:03 Leukocytosis, unspecified type: Entered Date: 26-Dec-2016 19:02 Hypotension (arterial): Entered Date: 26-Dec-2016 19:02Mulitdisciplinary Rounding:The following staff were in attendance attending physician and advancepractice nurse.Signature/Cosignature/ Attestation:Critical Care Patient I have reviewed and evaluated the most recent data basia, personally examined the patient, and formulated the plan of care aspresented above. This patient was critically ill and required continuedcritical care treatment. Teaching and any separately billable procedures arenot included in the time calculation.Billing Provider Critical Care Time 45 minute(s)Primary Critical Care Issue/Treatment (See Assessment and Plan for greaterdetail) -- This patient has undergone a major operation or significantprocedure and must have intensive monitoring and management to diagnose orprevent life or limb threatening deterioration. Please see assessment and planabove for greater detail.; -- This patient has sustained, and been resuscitatedfrom, a cardiopulmonary arrest. We are treating with appropriateinotropic/hemodyn amic agents/devices, fluids and/or pressors, and hypothermicprotocol as indicated, as well as doing intensive diagnostic evaluation andmonitoring. Please see assessment and plan above for greater detail.Electronic Signatures:Manny Arana) (Signed 03-Jul-2017 21:22) Authored: Assessment and Plan, Mulitdisciplinary Rounding,Signature/Cosignatu re/Attestation Co-Signer: Service, Subjective Data, Objective Data, Assessment and PlanAltagracia TrammellGLENDA) (Signed 03-Jul-2017 13:34) Authored: Service, Subjective Data, Objective Data, Assessment and PlanLast Updated: 03-Jul-2017 21:22 by Manny Arana) Normal [facility] Discharge Planning Noteon Discharge Planning Note Discharge Needs Assessment:? Discharge Planning Assessment [id number]? Discharge Planning Assessment Completed bySom Chaudhari RN (CareCoordinator) Patient Learning:? Factors that Impact Ability to Learnnone(1) Other Factors:? Functional Screen: In the recent/past 2-4 weeks, patient or family havenoticeda significant change in function affecting balance, or the ability tosafely transfer or ambulate (And is not on bedrest), sciatica pain(1) Discharge Planning:Discharge Plannin07/03/17 1443Met with patient to discuss discharge planning, patient sleeping and hadsurgery last night, will continue to follow. Som Chaudhari RN 07/06/17 1056Tried to meet with patient today, CREDIT AND COLLECTIONS REPRESENTATIVE feeding patient and she stated patientconfused today, Unable to talk with patient due to confusion, Will continue tofollow. Som Chaudhari RN (Associate Account Director) 07/07/17 1545Met with patient about discharge plans, lives with spouse in a one story homewith 2 steps to enter, Therapy recommended SNF for rehab, patient[facility] preference[facility] from provider list given, referral sent to [facility],Leida at [facility] accepted patient upon discharge. [id number] completed.Som Chaudhari RN (Associate Account Director) 07/08/17 1540- Discussed plan of care in interdisciplinary rounds. Patient isinterested in staying here for swing bed is able. [facility] Referral sent to team to review and willfollow. Javier Muller RN Electronic Signatures:Som Chaudhari (CLIN COOR) (Signed 07-Jul-2017 15:47)Authored: Discharge Planning Wanda Cheung (CLIN COOR) (Signed 08-Jul-2017 15:41)Authored: Discharge Planning Note Last Updated: 08-Jul-2017 15:41 by Wanda Muller (CLIN COOR) References:1. Data Referenced From Admission Risk Screen - Adult 07/02/2017 08:21 PM Normal [facility] FLUID CULTURE/SM.,BACTERIALo n 07-03-2017 FLUID CULTURE/SM.,BACTERIAL PATIENT: KATHERINE JUDGE LOCATION: [address]#: [id number] : [birth year] AGE: SEX: F ORDERED BY: DEBRA ARANA: FLUID COLLECTED: 07/03/17 00:58ANTIBIOTICS AT ESDRAS.: RECEIVED : 07/03/17 08:21SITE: peritineum R E S U L T S GRAM STAIN FINAL 07/03/17 09:41 NO GRANULOCYTES OR ORGANISMS SEEN. FLUID CULTURE/SM.,BACTERIAL FINAL 07/06/17 09:20 NO GROWTH AEROBICALLY OR ANAEROBICALLY. Normal [facility] Comment on above: Performed By: #### U A ####[facility] [place] [address] LACTATEon 07-03-2017 Lactate molar conc Canceled Normal [facility] Comment on above: Order Comment: TEST LACTATE WAS CANCELLED, 07/03/2017 09:41 ?Cancel Reason: Alternativetreatment needed. Result Comment: Hali puncture immediately after or during the administration of Metamizole may lead to falsely low results. Testing should be performed immediately prior to Metamizole dosing. Performed By: #### V TDOH ####[facility] [place] [address] Lactate molar conc 2.6 mmol/L High 0.4 - 2.0 [facility] Comment on above: Result Comment: Hali puncture immediately after or during the administration of Metamizole may lead to falsely low results. Testing should be performed immediately prior to Metamizole dosing. Performed By: #### V TDOH ####[facility] [place] [address] Lactate molar conc 3.0 mmol/L High 0.4 - 2.0 [facility] Comment on above: Result Comment: Hali puncture immediately after or during the administration of Metamizole may lead to falsely low results. Testing should be performed immediately prior to Metamizole dosing. Performed By: #### V TDOH ####[facility] [place] [address] Lactate molar conc 2.9 mmol/L High 0.4 - 2.0 [facility] Comment on above: Result Comment: Hali puncture immediately after or during the administration of Metamizole may lead to falsely low results. Testing should be performed immediately prior to Metamizole dosing. Performed By: #### V TDOH ####[facility] [place] [address] MAGNESIUMon 07-03-2017 Magnesium mass conc 1.73 mg/dL Normal 1.60 - 2.40 [facility] Comment on above: Performed By: #### V TDOH ####[facility] [place] [address] Nutrition Therapy-Assessment on 07-03-2017 Nutrition Therapy-Assessment Assessment Subjective/Objective:Note Type: AssessmentNote Authored by: Registered Dietitian NutritionistPager Number: [phone] Note:The patient is a 82 year old Female admitted for small bowel obstruction.Nutrition consulted per nursing screen for MST 2 or more, pt eating pooly and /or recent weight loss.Per chart: Pt presented to ED on 07/02/17 with abdominal pain and nausea thatbegan 07/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 Pt admitted for surgery, now s/p R hemicolectomy, and stapledileocolonic anastomosis on 07/03/17.Visited pt at bedside, pt had nasal cannula, Lactated Ringers IVF infusing @ 60ml/hr. Pt currently NPO. Per chart and RN, + bowel sounds. No family presentat time of visit. Pt was laying in bed and able to answer my questions. Ptreports that she was eating normally prior to admittance, with average intake.Reports UBW 110 to 112 lbs since last December 2016. Admitting Dx: Cecal volvulus: Additional Dx: S/P right hemicolectomy: Small bowel obstruction: NSTEMI (non-ST elevated myocardial infarction): UTI (urinary tract infection), bacterial: Anemia: Lactic acidosis: Leukocytosis, unspecified type: Hypotension (arterial): Pneumonia of right lower lobe due to infectious organism: Acute encephalopathy: Medical History: Gastrocutaneous fistula: Constipation: Ileus: Exploratory laparotomy: Anemia due to unknown or multiple mechanisms (disorder): Transient ischemic colitis (disorder): Protein malnutrition unspecified (disorder): Hypokalemia (disorder): Magnesium deficiency: Colitis (disorder): Small bowel obstruction (disorder): Acute bowel obstruction: Onset Date: 11-Feb-2012 Generalized abdominal pain (finding): Chronic: Fluid overload pulmonary edema: Clostridium difficile infection: Diarrhea: Other Dx/Proc: Gastrointestinal bleeding: Description: Gastrointestinal bleeding 1 Colitis, 2 Abdomen Pain 3 Cholelithiasis: Onset Date: 03-Apr-2012 Heart failure: Description: Heart failure PNEUMONIA: Diabetes mellitus: Description: Diabetes mellitus Abdominal pain: Description: Abdominal pain Electrolyte imbalance: Description: Electrolyte imbalance Post CABG: Description: Post CABG Coronary artery disease: Description: Coronary artery disease Non ST Elevation Myocardial Infarction (NSTEMI): Description: Non ST ElevationMyocardial Infarction (NSTEMI) Coronary angioplasty/stent (PCI): Description: Coronary angioplasty/stent(PCI) Dyspnea: Description: Dyspnea Coronary atherosclerosis: Description: Coronary atherosclerosis Left heart catheterization: Description: Left heart catheterization Hypotension: Sepsis: Description: Sepsis Venous thromboembolism: Description: Venous thromboembolism Medical History: Gastrocutaneous fistula: Constipation: Ileus: Exploratory laparotomy: Anemia due to unknown or multiple mechanisms (disorder): Transient ischemic colitis (disorder): Protein malnutrition unspecified (disorder): Hypokalemia (disorder): Magnesium deficiency: Colitis (disorder): Small bowel obstruction (disorder): Acute bowel obstruction: Onset Date: 11-Feb-2012 Acute bowel obstruction:Objective Information: T P R BP RzI2Dcijg 36.1 83 13 92/53 93%Date/Time 07/03 12:00 07/03 15:00 07/03 15:00 07/03 15:5:00Range (36.1C - 36.5C ) (65 - 93 ) (10 - 23 ) (71 - 135 )/ (45 - 69 ) (92%- 100% ) As of 03-Jul-2017 15:00:00, patient is on 3 L/min of oxygen via nasal cannula.Pain at Rest reported at 07/03 13:00: 2 Weights07/03 6:00: Weight in kg (Weight (kg)) 53.85/25 6:00: Weight in lbs ((lbs)) 118.75/24 20:49: BMI (kg/m2) (BMI (kg/m2)) 21.312---- Intake and Output -----Mn/Dy/Year Time Intake Output NetMay 2017 2:00 pm 2001 350 1651May 2017 6:00 am 1500 150 1350The Intake and Output Totals for the last 24 hours are: Intake Output Net 1500 150 1350Height/Weight:Height in feet: 5 feetHeight in inches: 2 inch(es)Height in cm: 157.4 centimeter(s)Weight in lbs: 118.5 pound(s)Weight (kg): 53.8BMI (kg/m2): 21.715 square meterDBW (kg): 57.3%DBW: 94Weight history/ % weight change: DBW-126 lbs for BMI 23 in adult >65 years Weight History:01/02/17: 47.2 kg- No edema per flowsheet, ? weight gain from 12/26 vs fluidshifts in pt with history of malnutrition/ pulmonary edema / heart failureSignificant Weight Change: noRecent Lab Results:Results:I have reviewed these laboratory results:Lactate, Level Trending ViewResult 03-Jul-2017 08:23:00 03-Jul-2017 05:20:00 03-Jul-2017 02:05:9003-Mri-1108 17:00:00Lactate, Level 2.6 H 3.0 H 2.9 H 1.5Complete Blood Count Trending ViewResult 03-Jul-2017 05:20:00 03-Jul-2017 02:05:00White Blood Cell Count 6.4 4.7Red Blood Cell Count 3.79 L 4.24HGB 12.7 14.2HCT 38.6 43.6MCV 102 H 103 HMCHC 32.9 32.6PLT 214 236RDW-CV 13.9 13.8Comprehensive Metabolic Panel Trending ViewResult 03-Jul-2017 05:20:00 03-Jul-2017 02:05:00 02-Jul-2017 15:44:00Glucose, Serum 148 H 157 H 127 HNA 137 137 139K 3.9 4.1 3.8CL 105 103 98Bicarbonate, Serum 22 22 32Anion Gap, Serum 14 16 13BUN 31 H 29 H 29 HCREAT 1.12 H 1.12 H 1.25 HGFR-Non 47 A 47 A 41 AGFR- 57 A 57 A 50 ACalcium, Serum 8.3 L 8.8 10.9 HALB 2.7 L 3.0 L 4.7ALKP 36 41 62T Pro 5.4 L 6.0 L 9.3 HT Bili 1.1 1.0 1.0Alanine Aminotransferase, Serum 19 19 33Aspartate Transaminase, Serum 21 22 34Magnesium, Serum 03-Jul-2017 02:05:00Result ValueMagnesium, Serum 1.73Phosphorus, Serum 03-Jul-2017 02:05:00Result ValuePhosphorus, Serum 3.7Blood Gas, Arterial 03-Jul-2017 01:10:00Result ValuepH, Arterial 7.42pCO2, Arterial 36 LpO2, Arterial 109 HPatient-Temperature 37.0FIO2 60SO2, Arterial 98Base Excess-Blood -0.7Bicarbonate, Calculated, Arterial 23.4Site of Arterial Puncture RIGHT RADIALAllen's Test (Collateral Circulation) POSITIVECulture, Body Fluid, includes smear 03-Jul-2017 00:58:00Result ValueGram Stain NO GRANULOCYTES OR ORGANISMS SEEN.Urinalysis 02-Jul-2017 15:45:00Result ValueColor, Urine MARINA Reference Range: STRAW,YELLOWAppearance, Urine HAZYSpecific Max, Urine 1.026pH, Urine 5.0Protein, Urine 30(1+) AGlucose, Urine NEGATIVEBlood, Urine NEGATIVEKetones, Urine NEGATIVEBilirubin, Urine NEGATIVEUrobilinogen, Urine <2.0Nitrite, Urine NEGATIVELeukocyte Esterase, Urine TRACE AUrinalysis, Microscopic 02-Jul-2017 15:45:00Result ValueWhite Cells 3 ARed Blood Cells 1 AEpithelial Cells, Squamous 2Bacteria, Urine 1+ AMucous 1+Hyaline Casts 4+ AComplete Blood Count + Differential 02-Jul-2017 15:44:00Result ValueWhite Blood Cell Count 12.8 HRed Blood Cell Count 4.49HGB 15.0HCT 44.8MCV 100MCHC 33.5PLT 260RDW-CV 13.6Neutrophil % 83.4Immature Granulocytes % 0.4Lymphocyte % 12.8 LMonocyte % 3.1Eosinophil % 0.1Basophil % 0.2Neutrophil Count 10.64 HLymphocyte Count 1.63Monocyte Count 0.40Eosinophil Count 0.01Basophil Count 0.03Lipase, Serum 02-Jul-2017 15:44:00Result ValueLipase, Serum 455 HCurrent Active Medications/PN: Enoxaparin SubCutaneous, (LOVENOX) DOSE = 40 mg SubCutaneous Every 24 Hours, 03-Jul-2017 Metoprolol Injectable, (LOPRESSOR) DOSE = 2.5 mg IntraVenous Push Every 6 Hours Clinician Notes: HOLD FOR HR < 50 /SBP < 100, 03-Jul-2017 Pantoprazole Injectable, (PROTONIX) DOSE = 40 mg IntraVenous Push Every 24 Hours, 03-Jul-2017 Sodium Chloride 0.9% Injectable Flush, via Triple Lumen - Arrow Brand Volume = 10 mL IntraVenous Flush Every 8 Hours and as Needed, 03-Jul-2017 HYDROmorphone Injectable, (DILAUDID) DOSE = 1 mg IntraVenous Push Every 2 Hours, PRN Pain - Severe (7-10),03-Jul-2017 metroNIDAZOLE 500 mg IVPB/ Premixed Soln 100 mL, (FLAGYL) Every 8 Hours Recommended Infusion Time: 60 minute(s), 03-Jul-2017 Ciprofloxacin 400 mg IVPB/ Premixed Soln 200 mL, (CIPRO) Every 12 Hours Recommended Infusion Time: 60 minute(s), 03-Jul-2017 Lactated Ringers Infusion, IV Bag Volume = 1,000 mL Run at: 60 mL/hr IntraVenous , [id number] Orders: NPO, Routine Except Sips of Water Special Instuctions: may have ice chips and popsicles also, 65-Ccr-9025Dwwc/Nutrition Related History:Change in Oral Intake/Appetite: decrease -Pt is NPOGI Symptoms: none, -No BM documented per flowsheet, pt with history ofconstipationTime Frame for GI Symptoms Greater Than 2 Weeks: not applicableOral Problems: denies, Pt is currently NPOMobility: bed/chair riddenFood Allergies Comment: NKFANutritional Supplements: deniesNutrition Focused Physical Findings:Muscle Wasting:Temporal: noShoulder: deferClavicle: deferScapula/Back: deferBiceps/Triceps: deferInterosseous: noQuadriceps: deferCalf: deferLoss of Subcutaneous Fat:Eyes: noPerioral: noTriceps: deferChest: deferOther Physical Findings:Hair: negativeEyes: negativeNails: negativeSkin: per flowsheet, midline incision closed with george, no drainage,dressing dry and intactEdema: noneChange in Metabolic Demand: yes UTI, pneumonia, Pt s/p surgerySubjective Global Assessment Rating: unable to determine at this time Pt withweight gain since 12/2016, although weight gain questionable in pt with historyof pulmonary edema and heart failure, unable to establish current intake as ptis NPO.Estimated Needs:kcals/day: 1500 to 1700 kcal/day (28 to 32 kcal/kg actual weight)gms protein/day: 55 g/day (1 g/kg actual weight)mL fluid/day: per physicianNutrition Diagnosis:Diagnosis1 new. Dx: Inadequate oral intake. related to decreased ability toconsume sufficient energy as evidenced by pt is NPO.Additional Assessment Information: Labs Noted:-Elevate Glu 148 (H) in pt with history of diabetes.-Elevated BUN/Cr 31/1.12 (H) consistent with RADHA.-Albumin 2.7 (L)- not a reliable indicator of nutritional status.Nutrition Interventions:Individualized Nutrition Prescription Provided for: dietCoordination of Care with: RNNutrition Goals:Goals: Nutrition Therapy: less than 5 days NPO/clear liquids, Blood Njtfmmy64-114 mg/dl, lab values within normal limits, promote healing, maintain stableweightNutrition Goal Outcomes: -will assess upon follow upOutcomes Summary: Nutrition TherapyOutcome Summary: Nutritional Therapy: Inadequate oral intakeNUTRITION RECOMMENDATIONS:Recommendati ons:1. When medically appropriate, advance diet as tolerated to ConsistentCarbohydrate Diet (1600 to 1800 kcal)2. If pt to remain NPO > 72 hours, consider alternate method of feeding(nutrition support)3. Check weight dailyNutrition Therapy Recommendations:Nutrition Therapy Recommendations: 1. When medically appropriate, advance dietas tolerated to Consistent Carbohydrate Diet (1600 to 1800 kcal) 2. If pt to remain NPO > 72 hours, consider alternate method of feeding(nutrition support)3. Check weight dailyDietitian Monitoring and Evaluation Plan:Monitoring and Evaluation Plan: po intake and tolerance, fluid intake/adequacy,digestive function, weight trend, stool output, overall appearance, labsOther Plan: Evaluate nutrition intervention as compared to nutrition goal(s)and estimated nutrient need criteria.Diet Education:Nutrition Education: -Not appropriate at this time.Electronic Signatures:Silvia Tyler (DEEPA HENRIQUEZ) (Signed 03-Jul-2017 17:04) Authored: Assessment Subjective/Objective, Nutrition Focused PhysicalFindings, Estimated Needs, Nutrition Diagnosis, Nutrition Interventions,Nutrition Goals, Nutrition Recommendations, Dietitian Monitoring and EvaluationPlan, Diet EducationLast Updated: 03-Jul-2017 17:04 by Silvia Tlyer (DEEPA HENRIQUEZ) [facility] OPERATIVE REPORTon 8 OPERATIVE REPORT [facility] [place] [id number] Name: KATHERINE JUDGE. NMRN: [id number]: [id number] Number: [id number] of Service: 07/03/2017Patient Location: [facility]85Patient Type: ISurgeon: Manny Arana M.D.Report Type: Operative ReportsPREOPERATIVE DIAGNOSIS:Venofibrosis, cecal volvulus, small-bowel obstruction.POSTOPERATIVE DIAGNOSIS:Venofibrosis, cecal volvulus, small-bowel obstruction.OPERATION/PROCED URE:1. Ultrasound-guided placement of left internal jugular vein triple-lumen catheter.2. Exploratory laparotomy.3. Lysis of adhesions.4. Right colectomy.5. Ileocolonic staple anastomosis.6. Bilateral transversus abdominis plane block.SURGEON:Manny MachadoT(S):Mary HansenANESTHESIA:General.INC ISION:Midline.ESTIMATED BLOOD LOSS:50 cc.FLUIDS:1500 mL.DRAINS:None.SPECIMENS:Non viable cecum and portion of the right colon.CLOSURE:The fascia was closed with running double-looped PDS suture. 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 She felt unwell and was clinicallyextremely tender and distended. The CT scan confirmed a cecal volvulus withthe proximal bowel obstruction. For this reason, it was felt appropriate torecommend urgent surgical intervention. After a long discussion with thepatient and discussion with the vice president payment, it was felt that she would be acandidate for surgical intervention.OPERATIVE FINDINGS:The patient had venofibrosis and the neck was interrogated and the rightinternal jugular vein was small and did not appear to be a good site forplacement of a triple-lumen catheter. Left internal jugular vein was clearlyidentified and the catheter was placed successfully. There was good bloodreturn from 2 ports, the third port did not have an excellent blood return.At exploratory laparotomy, the patient had an obvious cecal volvulus with thececum sitting in the right upper quadrant and was nonviable, but not franklygangrenous, it was certainly ischemic, and it was elected at this time toperform a right colectomy. The patient had multiple adhesions. The upperabdomen was soft with multiple adhesions from her previous laparotomies, andthe stomach could not be easily identified. I had wished to place agastrostomy tube in view of the likelihood of a prolonged ileus, but this wasnot safe nor was it possible. The remainder of the small bowel was extremelydilated all the way up to the ligament of Treitz. There were multipleadhesions as discussed. The uterus was present, and the small bowel itselfwas viable.A tgpb-cr-tsao ileocolonic stapled functional end-to-end handsewn 2-layeredanastomosis was performed, and this was viable. I did not feel it necessaryto perform a diverting-loop ileostomy as the patient's bowel appearedappropriate enough for anastomosis. No other obvious abnormalities wereidentified.PROCEDURE:Aft er obtaining informed consent from the patient, discussing all the risks,which include, but not limited to pain; infection; bleeding; risk of woundinfection; wound abscess; the need for ostomy; risk of injury to the ureter,duodenum; risk of need for a temporary versus permanent anastomosis; risk ofpneumothorax; the surgical safety checklist was performed. The patient's neckwas interrogated. The patient had a very small right internal jugular vein,but had an obvious left internal jugular vein. This was cannulated, and I wasable to pass the guidewire successfully. The tract was dilated, and thecatheter was passed to its hub. There was good blood return obtained from the2 ports, the central port did not reveal adequate blood return. The catheterwas sewn in place.The abdomen was then prepped and draped in aseptic fashion. The patient had aFoley catheter placed, and the appropriate preoperative intravenousantibiotics were administered. A midline incision was made, and dissectionwas carried down to the fascia using sharp dissection. The abdominal cavitywas entered. There were multiple adhesions present, these were carefullytaken down, and I was able to identify a very dilated bowel. I followed thebowel down the rest of way as I could to the right colon, and I identified thececum, which was completely flipped on itself and very ischemic appearing withareas that appeared to be gangrenous and nonviable. I elected not to untwistthe cecum as this would probably compromise the patient by the release oftoxic substances that might be deleterious for the patient. I quicklytransected the terminal ileum with a ISABEL stapler and performed a similartransection for the cecum at the level of the ascending colon. I identifiedthe marginal vessels, and there was excellent pulsatile bleeding. Themesentery was doubly clamped, divided, and ligated between Remy clamps andties, and I removed the specimen to the back table and opened this, whichcontained a large amount of stool.Attention was turned to the small bowel. This had a small hematoma, but itappeared to be viable. A jhjz-fi-vseh stapled anastomosis was performed afterensuring that I had control of the bowel contents with bowel clamps. I didhave some spillage of bowel contents which was foul in odor, this did not comeanywhere near the incision as I had placed a towel around the incision. I dida functional end-to-end handsewn 2-layer anastomosis. On completion of theanastomosis, the small bowel did not appear to be very viable. I looked atthis very carefully, and I elected at this time to redo the anastomosis.I re-transected the proximal portion of the ascending colon along with thesmall bowel, removed this and transected the remainder of the mesentery bydoubly clamping, dividing, and ligating this. I then reanastomosed the bowelperforming a yuou-fv-oveq stapled anastomosis after opening this at thecorners. I had complete control of the bowel clamps, I performed lvzql-qr-dzon stapled anastomosis. I then performed another ltbfvymoqlyum-ar-gww handsewn 2-layered anastomosis, which on completion had muchimproved appearance with no obvious ischemia. A second layer of Lembertsutures were placed along the staple side and the anastomosis laid nicelywithout tension.I then re-examined the upper abdomen and made attempts to try and identify thestomach. There was a fair amount of oozing around this, and I could notreally free any of the tissue up here as the patient had a previousgastrostomy and I did not feel it safe to continue and persist. I then wasable to have the anesthesiologist pass a nasogastric tube which did pass intostomach, understanding that the patient had an obvious very large hiatalhernia which contained the stomach and pancreas. At this time, the cavity wasirrigated copiously. The excess effluent was removed. I re-examined theabdomen to make sure there was no obvious bleeding, which there was not, therewas complete hemostasis. A bilateral TAP block was then performed and thefascia and skin were then closed as above. Dressing was placed. All needle,sponge, and instrument counts were correct x2. The patient tolerated theprocedure well and was discharged to the Critical Care Unit in a criticalcondition.Manny Arana M.D. ESTTT: 07/03/2017 06:25 AM ESTDICTATION NUMBER: [id number] JOB NUMBER: [id number]:Benjy Garnett M.D., [id number] signed by Dr Manny Arana 07/04/2017 09:43:47 AM Normal [facility] PHOSPHORUSon 07-03-2017 Phosphate mass conc 3.7 mg/dL Normal 2.5 - 4.9 [facility] Comment on above: Result Comment: The performance characteristics of phosphorus testing in heparinized plasma have been validated by the individual laboratory site where testing is performed. Testing on heparinized plasma is not approved by the FDA; however, such approval is not necessary. Performed By: #### V TDOH ####[facility] [place] [address] Admission Risk Screen - Adul ton 07-02-2017 Admission Risk Screen - Adult Allergies: Allergies:? Lincocin: Rash? penicillin: Rash? tetracycline: Rash? erythromycin: Rash? Keflex: Syncope? Lunesta: Unknown? penicillin G benzathine: Unknown? Biaxin: Unknown? trazodone: Unknown? Clindamycin Hydrochloride: Unknown? aspirin: GI Bleeding? Vioxx: Bleeding? NSAIDs: GI Bleeding? Mold/Fungi: Unknown? Pollen: Unknown Intolerances:? Ativan: Confusion? Restoril: ConfusionPatient Verification:? New W ID Band Applied in my Department yes? Patient Identity Verified By patient? ID Band FULL Name, include Middle, spelling matches patient's ID used forverification yes? ID Band Matches Patient ID used for Verfication yes? ID Band MRN Matches EMR MRN yesAdvance Directive:? Advance Directive Medical yes? Advance Directive type Living Will, Durable Power of Sap Bw Consultant forHealthcare? Living Will Availability Living Will not available now? Living Will Requested 02-Jul-2017? Durable Power of Sap Bw Consultant Availability DPOA not available now? Durable Power of Sap Bw Consultant Requested 02-Jul-2017? Durable Power of Sap Bw Consultant contact (name and number) Ganga Judge (son)[phone]? Advance Directive Mental Health not applicableFalls Screen:Type of Assessment admissionRisk for Injury Associated with Fall noneFall Risk Conclusion moderate falls risk with low risk for associated injuryUniversal Safety Interventions WDL *orient to call system *instruct to callforassistance before getting out of bed *non-slip footwear when patient is out ofbed *call hoffman in reach *personal items and telephone in reach *physically safeenvironment (no spills or clutter) *bed in lowest position with wheels locked*appropriate side rails in place *room/bathroom lighting operational, lightcord in reach *appropriate signage on doorFall and Injury Risk Interventions educate patient/family for risk for injury(fractures and bleeding)Family Violence Screen:? Are you or have you been threatened or abused physically, emotionally, orsexually by anyone? no? Do you feel UNSAFE going back to the place where you are living? no? Clinical assessment: Are there any apparent signs of injuries/behaviors thatcould be related to abuse/neglect no? Social Service Consult for abuse/neglect needed this visit? noFunctional screen:? Functional Screen: In the recent/past 2-4 weeks, patient or family havenoticed a significant change in function affecting balance, or the ability tosafely transfer or ambulate (And is not on bedrest), sciatica painLearning Assessment (Patient):? Patient is Able to be Assessed for Learning yes? Factors Influencing Readiness to Learn acuteness of illness? Factors that Impact Ability to Learn none? Devices/Methods Used to Communicate none? Learning Preferences individual instruction? Cultural Considerations none? Developmental Considerations none? Restoration Considerations noneLearning Assessment (Other Learner):? Other learner available noSuicide/Depression Screen:? During the past month, have you often been bothered by feeling down,depressed or hopeless? yes? During the past month, have you often had little interest or pleasure indoing things? no? Have you had any thoughts of harming yourself? no? Have you had any thoughts of harming anyone else? noAdult Nutrition Screen:? Have you recently lost weight without trying yes; 2-13 lb? Have you been eating poorly because of a decreased appetite no? MST Score 1? Risk MST = 2 or more At Risk. Eating poorly and/or recent weight loss? Nutrition Consult needed this visit? yes? Can Patient Participate in Room Service? yes? Patient requires Paper Dishes/Plastic Utensils noPain Screen:? Pain Scale numerical 0-10? Pain Scale Education teaching provided? Current Pain Level 9 = Severe? Acceptable Pain Level 6 = Moderate? Expression of Pain (nonverbal) verbalization? Chronic Pain yes? Chronic Back pain location lowerSpiritual Screen:? Are there any cultural, spiritual, scientology practices/values/needs that areimportant for us to know? noCAGE:Is this an injured patient at a Trauma Center ([facility] / [place]): noVaccinations:Vaccination - Influenza Vaccination Screen:? Is it flu season? (between and ) NoVaccination - Pneumonia Vaccination Screen:? Patient has received a previous pneumonia vaccine: yesBraden:Skin - Moustapha Scale:? Moustapha: Sensory Perception (response to environment) (4) no impairment? Moustapha: Moisture (degree skin exposed to moisture) (4) rarely moist? Moustapha: Activity (ability to walk) (4) walks frequently? Moustapha: Mobility (amount/control of body movement) (4) no limitation? Moustapha: Nutrition (quality of food intake) (3) adequate? Moustapha: Friction and Shear (3) no apparent problem? Moustapha: Score 22Significant Indicatiors:Significant Indicators: CompletePressure Injury:Pressure Injury Present on Admission noElectronic Signatures:Emily Henderson (SUPV) (Signed 02-Jul-2017 20:35) Authored: Admission Risk Screens, Vaccinations, Moustapha, Pressure InjuryLast Updated: 02-Jul-2017 20:35 by Emily Henderson (SUPV) Normal [facility] CBC AND DIFFERENTIALon 07-02 % AUTOMATED IMMATURE GRAN 0.4 % Normal 0.0 - 0.9 [facility] Comment on above: Result Comment: Perc ent differential counts (%) should be interpreted in the context of the absolute cell counts (cells/L). Performed By: #### C BCDF ####[address] [address] % NEUTROPHIL 83.4 % Normal 40.0 - 80.0 [facility] Comment on above: Performed By: #### C BCDF ####[id number] [place] [address] Basophils/100 WBC Auto (Bld) 0.03 x10E9/L Normal 0.00 - 0.10 [facility] Comment on above: Performed By: #### C BCDF ####[address] [address] Basophils/100 WBC Auto (Bld) 0.2 % Normal 0.0 - 2.0 [facility] Comment on above: Performed By: #### C BCDF ####[address] [address] Eosinophils Auto #/vol (Bld) 0.01 10*3/uL Normal 0.00 - 0.40 [facility] Comment on above: Performed By: #### C BCDF ####[address] [address] Eosinophils/100 WBC Auto (Bld) 0.1 % Normal 0.0 - 6.0 [facility] Comment on above: Performed By: #### C BCDF ####[address] [address] Erythrocyte distribution width Auto Ratio (RBC) 13.6 % Normal 11.5 - 14.5 [facility] Comment on above: Performed By: #### C BCDF ####[address] [address] Hematocrit Auto Volume Fraction (Bld) 44.8 % Normal 36.0 - 46.0 [facility] Comment on above: Performed By: #### C BCDF ####[address] [address] Hemoglobin mass conc (Bld) 15.0 g/dL Normal 12.0 - 16.0 [facility] Comment on above: Performed By: #### C BCDF ####[address] [address] Lymphocytes Auto #/vol (Bld) 1.63 10*3/uL Normal 0.80 - 3.00 [facility] Comment on above: Performed By: #### C BCDF ####[address] [address] Lymphocytes/100 WBC Auto (Bld) 12.8 % Low 13.0 - 44.0 [facility] Comment on above: Performed By: #### C BCDF ####[address] [address] MCHC Auto mass conc (RBC) 33.5 g/dL Normal 32.0 - 36.0 [facility] Comment on above: Performed By: #### C BCDF ####[address] [address] MCV Auto Entitic volume (RBC) 100 fL Normal 80 - 100 [facility] Comment on above: Performed By: #### C BCDF ####[address] [address] Monocytes Auto #/vol (Bld) 0.40 10*3/uL Normal 0.05 - 0.80 [facility] Comment on above: Performed By: #### C BCDF ####[address] [address] Monocytes/100 WBC Auto (Bld) 3.1 % Normal 2.0 - 10.0 [facility] Comment on above: Performed By: #### C BCDF ####[address] [address] Neutrophils Auto #/vol (Bld) 10.64 10*3/uL High 1.60 - 5.50 [facility] Comment on above: Performed By: #### C BCDF ####[address] [address] Platelets Auto #/vol (Bld) 260 10*3/uL Normal 150 - 450 [facility] Comment on above: Performed By: #### C BCDF ####[address] [address] RBC Auto #/vol (Bld) 4.49 x10E12/L Normal 4.00 - 5.20 [facility] Comment on above: Performed By: #### C BCDF ####[address] [address] WBC Auto #/vol (Bld) 12.8 10*3/uL High 4.4 - 11.3 [facility] Comment on above: Performed By: #### C BCDF ####[address] [address] COMPREHENSIVE PANELon 2017 Albumin mass conc 4.7 g/dL Normal 3.4 - 5.0 [facility] Comment on above: Performed By: #### C MP ####[address] [address] ALP enzyme act/vol 62 U/L Normal 33 - 136 [facility] Comment on above: Performed By: #### C MP ####[address] [place] [address] ALT enzyme act/vol 33 U/L Normal 7 - 45 [facility] Comment on above: Result Comment: Viv ents treated with Sulfasalazine may generate falsely decreased results for ALT. Performed By: #### C MP ####[address] [address] Anion gap 3 molar conc 13 mmol/L Normal 10 - 20 [facility] Comment on above: Performed By: #### C MP ####[address] [address] AST enzyme act/vol 34 U/L Normal 9 - 39 [facility] Comment on above: Performed By: #### C MP ####[address] [address] Bilirubin mass conc 1.0 mg/dL Normal 0.0 - 1.2 [facility] Comment on above: Performed By: #### C MP ####[address] [address] Calcium mass conc 10.9 mg/dL High 8.6 - 10.3 [facility] Comment on above: Performed By: #### C MP ####[address] [address] Chloride molar conc 98 mmol/L Normal 98 - 107 [facility] Comment on above: Performed By: #### C MP ####[address] [address] Creatinine mass conc 1.25 mg/dL High 0.50 - 1.05 [facility] Comment on above: Performed By: #### C MP ####[address] [address] GFR- AM. 50 mL/min/1.73m2 Abnormal >60 [facility] Comment on above: Result Comment: CALC ULATIONS OF ESTIMATED GFR ARE PERFORMED USING THE MDRD STUDY EQUATION FOR THE IDMS-TRACEABLE CREATININE METHODS. CLIN CHEM 2007;53:766-72 Performed By: #### C MP ####[address] [address] GFR-NON AM. 41 mL/min/1.73m2 Abnormal >60 [facility] Comment on above: Performed By: #### C MP ####[facility] [place] [address] Glucose mass conc 127 mg/dL High 74 - 99 [facility] Comment on above: Performed By: #### C MP ####[address] [place] [address] HCO3 molar conc (Bld) 32 mmol/L Normal 21 - 32 [facility] Comment on above: Performed By: #### C MP ####[address] [place] [address] Potassium molar conc 3.8 mmol/L Normal 3.5 - 5.3 [facility] Comment on above: Performed By: #### C MP ####[address] [place] [address] Protein mass conc 9.3 g/dL High 6.4 - 8.2 [facility] Comment on above: Performed By: #### C MP ####[address] [place] [address] Sodium molar conc 139 mmol/L Normal 136 - 145 [facility] Comment on above: Performed By: #### C MP ####[address] [place] [address] Urea nitrogen mass conc 29 mg/dL High 6 - 23 [facility] Comment on above: Performed By: #### C MP ####[address] [address] [address] ABDOMEN AND PELVIS WO CON TRASTon 07-02-2017 CT ABDOMEN AND PELVIS WO CONTRAST Name: KATHERINE JUDGE STUDY:CT ABDOMEN AND PELVIS WO CONTRAST; 07/02/2017 7:04 pm INDICATION:Signs/Symptoms: Complaints of abdominal pain in right lower side withnausea and decreased bowel movements. History of bowel obstructions.. COMPARISON:08/26/2012 ORDERING CLINICIAN:THANH SHETH TECHNIQUE:Multiple contiguous axial images of the abdomen and pelvis wereobtained without intravenous contrast. Coronal and sagittalreformatted images were reconstructed from the axial data. FINDINGS:LOWER CHEST: Large hiatal hernia containing the pancreas and withorganoaxial rotation of the stomach, similar but enlarged from priorstudy. There is a sizable amount of retained oral contrast within theintrathoracic stomach. No evidence of obstructive gastric volvulus.However, there is significant reflux of contrast into the esophagus. ABDOMEN/PELVIS: Lack of intravenous contrast limits evaluation of the solid organsand vasculature. ABDOMINAL WALL: No significant abnormality. LIVER: The liver demonstrates normal noncontrast attenuation. BILE DUCTS: No significant abnormality. GALLBLADDER: Cholelithiasis. No discernible gallbladder wallthickening, pericholecystic fluid, or stranding. SPLEEN: No significant abnormality. PANCREAS: No significant abnormality. ADRENALS: No significant abnormality. KIDNEYS, URETERS, BLADDER: Simple cyst in the right kidney is notsignificantly changed. No evidence of renal or ureteral calculi. Nohydronephrosis. Normal appearance of the bladder for degree ofdistention. RETROPERITONEUM: No significant abnormality. VESSELS: Mild aortic atherosclerosis without AAA. LYMPH NODES: Limited evaluation without contrast. No evidence ofabdominal or pelvic adenopathy. BOWEL: There is swirling of the mesentery within the right lowerquadrant with inversion of the cecum, which is markedly dilated. Thesmall bowel loops proximal to the cecum are also severely dilated.There is no evidence of pneumatosis portal venous gas. There is noinflammatory bowel wall thickening. There is colonic diverticulosisinvolving the sigmoid colon without evidence for acute diverticulitis. PERITONEUM: Edema and mild stranding throughout the mesentery that islikely reactive to the aforementioned obstruction. REPRODUCTIVE ORGANS: No significant abnormality. OSSEOUS STRUCTURES: Severely osteopenic bone. Multilevel compressiondeformities in the midthoracic spine are unchanged. There is also anunchanged compression deformity of L1 and L3 vertebral body. Chronicfracture deformity of the posterior right ribs are noted. IMPRESSION:Findings consistent with a cecal volvulus resulting in severeproximal upgrade obstruction. Large hiatal hernia containing the stomach and pancreas. The stomachdemonstrates organo-axial orientation without evidence forobstructive volvulus at the esophageal hiatus. Colonic diverticulosis. Cholelithiasis.Electronicall y signed by: BLU ACEVEDO MD Normal [facility] History and Physicalon 07-02 History and Physical History of Present Illness:Admission Reason: POSSIBLE CECAL VOLVULUS / BOWEL OBSTRUCTION / ACUTE ABDOMENHPI:PATIENT WELL KNOWN TO ME WITH PREVIOUS ELAP IN FEB 2012 FOR SBO/ HAS A KNOWNLARGE HIATAL HERNIA AND SMALL VESSEL COLON DISEASE / HAS BEEN DOING REASONABLYWELL UNTIL 24 HOURS AGO WHEN SHE DEVELOPED ABDOMINAL PAIN / WAS SUDDNE ANDWORSENED OVER THE DAY / HAD NAUSEA BUT NO VOMITING / FELT UNWELL / NO FLATUS /NO DIARRHEA / RECENTLY SEEN BY CARDIOLOGY /CAME TO ER AND CT CONFIRMED A SMALLBOWEL OBSTRUCTION AND LIKELY CECAL VOLVULUS / LACTATE WAS NORMAL /Past Medical History/Past Surgical History - see Patient Info Tab/SignificantEventsComorbi dities:? Comorbid Conditions hypertensionPast Medical/Surgical History: Medical History: Gastrocutaneous fistula: Constipation: Ileus: Exploratory laparotomy: Anemia due to unknown or multiple mechanisms (disorder): Transient ischemic colitis (disorder): Protein malnutrition unspecified (disorder): Hypokalemia (disorder): Magnesium deficiency: Colitis (disorder): Small bowel obstruction (disorder): Acute bowel obstruction: Onset Date: 11-Feb-2012 Generalized abdominal pain (finding): Acute bowel obstruction: Acute bowel obstruction:Social History:Social History:Alcohol Use deniesDrug Use denies Allergies:? Lincocin: Rash? penicillin: Rash? tetracycline: Rash? erythromycin: Rash? Keflex: Syncope? Lunesta: Unknown? penicillin G benzathine: Unknown? Biaxin: Unknown? trazodone: Unknown? Clindamycin Hydrochloride: Unknown? aspirin: GI Bleeding? Vioxx: Bleeding? NSAIDs: GI Bleeding? Mold/Fungi: Unknown? Pollen: Unknown Intolerances:? Ativan: Confusion? Restoril: ConfusionReview of Systems:Constitutional: POSITIVE: Anorexia, Weight Loss, Malaise; NEGATIVE: Fever,ChillsEyes: NEGATIVE: Blurry Vision, Drainage, Diploplia, Redness, Vision Loss/ChangeENMT: NEGATIVE: Nasal Discharge, Nasal Congestion, Ear Pain, Mouth Pain, ThroatPainRespiratory: NEGATIVE: Dry Cough, Productive Cough, Hemoptysis, Wheezing,Shortness of BreathCardiac: NEGATIVE: Chest Pain, Dyspnea on Exertion, Orthopnea, Palpitations,SyncopeGastroin testinal: POSITIVE: Nausea, Vomiting, Diarrhea, Constipation, AbdominalPainGenitourinary: NEGATIVE: Discharge, Dysuria, Flank Pain, Frequency, HematuriaMusculoskeletal: POSITIVE: Decreased ROM, Pain, Swelling, Stiffness, WeaknessNeurological: NEGATIVE: Dizziness, Confusion, Headache, Seizures, SyncopePsychiatric: NEGATIVE: Mood Changes, Anxiety, Hallucinations, Sleep Changes,Suicidal IdeasSkin: NEGATIVE: Mass, Pain, Pruritus, Rash, UlcerObjective:Objective Information: T P R BP FaR9Ziguj 36.6 90 16 111/58 100%Date/Time 07/02 15:10 07/02 19:46 07/02 19:46 07/02 19:46 06/2418:46Range (36.6C - 36.6C ) (65 - 90 ) (16 - 16 ) (111 - 132 )/(58 - 69 ) (93%- 100% )Physical Exam:Constitutional: CACHETIC , no distress, alert and cooperativeEyes: clear scleraENMT: mucous membranes moist, no apparent injury, no lesions seenHead/Neck: Neck supple, no apparent injury,Respiratory/Thorax: Patent airways, CTAB, normal breath soundsCardiovascular: Regular, rate and rhythm, no murmurs, normal S 1and S 2Gastrointestinal: DISTENDED / FIRM / GUARDING / TENDER no masses palpable, noorganomegaly,Genitourinary : No Discharge, vesicles or other abnormalitiesMusculoskeletal : ROM intact, normal strengthExtremities: normal extremities, no cyanosis edema, contusions or wounds, noclubbingNeurological: normal strengthLymphatic: No significant lymphadenopathyPsychological : Appropriate mood and behaviorSkin: Warm and dry, no lesions, no rashesRecent Lab Results:Results:I have reviewed these laboratory results:Lactate, Level 02-Jul-2017 17:00:00Result ValueLactate, Level 1.5Complete Blood Count + Differential 02-Jul-2017 15:44:00Result ValueWhite Blood Cell Count 12.8 HRed Blood Cell Count 4.49HGB 15.0HCT 44.8MCV 100MCHC 33.5PLT 260RDW-CV 13.6Neutrophil % 83.4Immature Granulocytes % 0.4Lymphocyte % 12.8 LMonocyte % 3.1Eosinophil % 0.1Basophil % 0.2Neutrophil Count 10.64 HLymphocyte Count 1.63Monocyte Count 0.40Eosinophil Count 0.01Basophil Count 0.03Comprehensive Metabolic Panel 02-Jul-2017 15:44:00Result ValueGlucose, Serum 127 HNA 139K 3.8CL 98Bicarbonate, Serum 32Anion Gap, Serum 13BUN 29 HCREAT 1.25 HGFR-Non 41 AGFR- 50 ACalcium, Serum 10.9 HALB 4.7ALKP 62T Pro 9.3 HT Bili 1.0Alanine Aminotransferase, Serum 33Aspartate Transaminase, Serum 34Radiology Results:Results:Impression: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 The stomachdemonstrates organo-axial orientation without evidence forobstructive volvulus at the esophageal hiatus.Colonic diverticulosis.Cholelithiasi s. CT Abdomen and Pelvis with Contrast [Jul 02 2017 7:20PM]Assessment and Plan:Problem List: Admitting Dx: Cecal volvulus: Additional Dx: Small bowel obstruction: Leukocytosis, unspecified type:Assessment:IMP -CECAL VOLVULUS / SMALL BOWEL OBSTRUCTION / ACUTE ABDOMENPLAN -EXPLORATORY LAPAROTOMY, POSSIBLE SMALL BOWEL RESECTION, POSSIBLE PARTIAL ORTOTAL COLECTOMY, POSSIBLE TRIPLE LUMEN CATHETER PLACMENT. Risks include, butnot limited to pain,infection, bleeding, anastamotic leak, need for an ostomy,wound infection, abdominal abscess, injury to ureters, injury to duodenum,recurrence of cancer, pneumothorax, risk of cardiac, pulmonary, neurologic,locomotor, anesthetic event, and other unforeseen complications includingdeath.PATIENT AND UNDERSTAND AND AGREE TO PLAN OUTLINED . UNDERSTAND THENEED FOR A POSSIBLE ILEOSTOMYSignatures/Attestat ion/Certification:Attending Provider ? Inpatient Certification Statement I certify thispatient?chang for inpatient care based on the above documentation including; the orderto admit as inpatient, the anticipated length of stay, diagnosis, problem listand plan of care, and discharge plan. Critical Access Hospital Admission: Thepatient can reasonably be expected to be discharged or transferred to anotherhospital within 96 hours after admission to the [facility].Electronic Signatures:Manny Arana) (Signed 02-Jul-2017 20:34) Authored: History of Present Illness, Comorbidities, Past Medical/SurgicalHistory, Social History, Allergies, Review of Systems, Objective, Assessmentand Plan, Signatures/Attestation/Certi ficationLast Updated: 02-Jul-2017 20:34 by Manny Arana) Normal [facility] LACTATEon 07-02-2017 Lactate molar conc 1.5 mmol/L Normal 0.4 - 2.0 [facility] Comment on above: Result Comment: Hali puncture immediately after or during the administration of Metamizole may lead to falsely low results. Testing should be performed immediately prior to Metamizole dosing. Performed By: #### L ACT ####[facility] [place] [address] LIPASEon 07-02-2017 Lipase enzyme act/vol 455 U/L High 9 - 82 [facility] Comment on above: Result Comment: Hali puncture immediately after or during the administration of Metamizole may lead to falsely low results. Testing should be performed immediately prior to Metamizole dosing. Performed By: #### L IPAS ####[id number] [place] [address] Patient Profile - Adult v2on 07-02-2017 Protein mass conc Profile:Initial Info :How to be Addressed NaomiSpoken Language Preferred Sudanese (1)Source of Information patientAre you currently using the Personal Electronic Health Record or [facility] noAre you interested in learning more about [facility] for the management of yourhealth yes, information providedEmail address [email or web address] d Reason for Admission Intestines are twisted and have an obstructionArrived From ORPatient Belongings noneMedications Brought to Hospital noGeneral Health:Weight in kg 52.8 kilogram(s)Weight in lbs 116.6 pound(s)Height in feet 5 feetHeight in inches 2 inch(es)Height in cm 157.4 centimeter(s)BMI (kg/m2) 21.312 square meterWeight Method actual (measured)Scale Type bedHeight Method estimatedRSP Based Care:How would you like to participate in your care? Whatever I can do to helpmyselfWhat is the number one concern for you during this hospitalization? That myhusband gets proper careWhat is the most important thing we can do to support you during thishospitalization? Explain things to meIs there anything we need to know to best care for you? nothingSubstance:Current or Former Substance Use never: Cigarette/Tobacco, Alcohol, StreetDrugsHealth Mgmt:Symptoms/Conditions Managed at Home cardiovascularCardiovascular Symptoms/Conditions hypertensionCardiovascular Management Strategies medication therapy; activityCardiovascular Management managedCardiovascular Symptoms/Conditions Comment Patient had double bypassBarriers to Managing Health noneRelationship/Environ:Coreen lopez Source of Support/Comfort spouseLives With spouseLiving Arrangements houseResource/Environmental Concerns noneAnticipated Transition To homeServices Anticipated at Transition home health careSignificant Indicators CompleteInformation Review:? Allergies, Home Meds and Significant Events have been Reviewed and Verifiedwith Patient/Family yesALLERGY, INTOLERANCE, ADVERSE EVENT: Allergies:? Lincocin: Drug, Rash, Active? penicillin: Drug, Rash, Active? tetracycline: Drug, Rash, Active? erythromycin: Drug, Rash, Active? Keflex: Drug, Syncope, Active? Lunesta: Drug, Unknown, Active? penicillin G benzathine: Drug, Unknown, Active? Biaxin: Drug, Unknown, Active? trazodone: Drug, Unknown, Active? Clindamycin Hydrochloride: Drug, Unknown, Active? aspirin: Drug, GI Bleeding, Active? Vioxx: Drug, Bleeding, Active? NSAIDs: Drug Category, GI Bleeding, Active? Mold/Fungi: Environment, Unknown, Active? Pollen: Environment, Unknown, Active Intolerances:? Ativan: Drug, Confusion, Active? Restoril: Drug, Confusion, ActiveElectronic Signatures:Remy Paniagua (CINTHYA) (Signed 03-Jul-2017 02:13) Authored: Emily Ken (SUPV) (Signed 02-Jul-2017 20:57) Authored: Mayela, Additional InformationLast Updated: 03-Jul-2017 02:13 by Remy Paniagua (CINTHYA)References:1. Data Referenced From Patient Profile - Adult v2 12/26/2016 06:36 PM Normal [facility] Preop Checkliston 07-02-2017 Preop Checklist Preop Checklist:Preo p Checklist:? Arrival Date 02-Jul-2017? Arrival Time 14:57? NPO Status 02-Jul-2017 14:57? ID Band On yes? Allergy Band yes? Consent Signed yes? H&P Complete pending? Anesthesia Assessment Completed pending? EKG Performed yes? Chest X-Ray Performed not ordered? SCD's Applied no? ADE Hose Applied no? Bowel Prep noRespiratory Assessment:? Respirations regular? Air Exchange good? Breath Sounds clearNeurological Assessment:? Level of Consciousness alert, oriented? Mobility moves all extremities? Able to Express Self yes? Age Appropriate yes? Emotional Status calmLanguage / Communication:? Language / Communication EnglishElectronic Signatures:Shawnee Rodríguez (RN) (Signed 02-Jul-2017 21:30) Authored: Preop ChecklistLast Updated: 02-Jul-2017 21:30 by Shawnee Rodríguez (RN) Normal [facility] Provider Note - EDon 018 Protein mass conc Time Seen:? Time See n 02-Jul-2017 15:03Triage Vital Signs:? Triage Information Most recent Vital Sign Value Date Temp (F): 98 07-02-2017 15:10 Temp (C): 36.6 07-02-2017 15:10 Heart Rate (beats/min): 80 07-02-2017 15:10 Respirations (breaths/min): 16 07-02-2017 15:10 SpO2 (%): 94 07-02-2017 15:10 BP Systolic (mm Hg): 130 07-02-2017 15:10 BP Diastolic (mm Hg): 65 07-02-2017 15:10History of Present Illness:This 82 year old Female presents with complaint(s) of abdominal pain(1)History:History:? History Reviewed Past family history reviewed and unremarkablePast Medical History: Medical History:? Gastrocutaneous fistula:? Constipation:? Ileus:? Exploratory laparotomy:? Anemia due to unknown or multiple mechanisms (disorder):? Transient ischemic colitis (disorder):? Protein malnutrition unspecified (disorder):? Hypokalemia (disorder):? Magnesium deficiency:? Colitis (disorder):? Small bowel obstruction (disorder):? Acute bowel obstruction: Onset Date: 11-Feb-2012? Generalized abdominal pain (finding):Significant Events:? CABG (2 vessel): Past Surgical History, Active, 25-Dec-2009? Cardiac Catheterization: Past Surgical History, Active? cataract: Past Surgical History, bilateral with lens implant, Active? appendectomy: Past Surgical History, 26 years ago, Active? complete hysterectomy: Past Surgical History, 26 years ago, Active? bilat knee replacement: Past Surgical History, Active? Congestive Heart Failure (CHF): Past Medical History, Active? Chronic anemia: Past Medical History, Active? Venous thromboembolism: Past Medical History, Active? Sepsis: Past Medical History, Active? Coronary atherosclerosis: Past Medical History, Active? Non ST elevation NE: Past Medical History, Active, 13-Dec-2009? CAD: Past Medical History, Active? GERD: Past Medical History, Active? UTI: Past Medical History, Active? umbilical hernia: Past Medical History, Active? diverticulitis: Past Medical History, Active? osteoporosis: Past Medical History, Active? anxiety: Past Medical History, Active? depression: Past Medical History, Active? post shingles neuropathy: Past Medical History, Active? hypercholesterolemia: Past Medical History, Active? herniated disc lumbar area: Past Medical History, Active? arthritis: Past Medical History, Active? Hypertension (HTN): Past Medical History, Active? gi bleed: Past Medical History, Active? mitral valve regurgitation: Past Medical History, Active? colitis: Past Medical History, Active? Family spokesperson: Other, CARLOS [phone] BROTHERPAUL VELOZ [phone], Active? Narcotic Use: Other, Active? Clostridium difficile toxin (C-Diff): Infection Control, came with ([facility]), Active, 27-Aug-2012? Methicillin-Resistant Staph Aureus (MRSA): Infection Control, sputum,Active, Mar 2012? .Pneumonia- Pneumococcal polysaccharide vaccine-adult: Immunizations,Active? .Influenza- Influenza Virus: Immunizations, Active, [id number], Intolerance, Adverse Event: Allergies:? Lincocin: Drug, Rash, Active? penicillin: Drug, Rash, Active? tetracycline: Drug, Rash, Active? erythromycin: Drug, Rash, Active? Keflex: Drug, Syncope, Active? Lunesta: Drug, Unknown, Active? penicillin G benzathine: Drug, Unknown, Active? Biaxin: Drug, Unknown, Active? trazodone: Drug, Unknown, Active? Clindamycin Hydrochloride: Drug, Unknown, Active? aspirin: Drug, GI Bleeding, Active? Vioxx: Drug, Bleeding, Active? NSAIDs: Drug Category, GI Bleeding, Active? Mold/Fungi: Environment, Unknown, Active? Pollen: Environment, Unknown, Active Intolerances:? Ativan: Drug, Confusion, Active? Restoril: Drug, Confusion, ActiveOutpatient Medication, Review/Add Medications:* Patient Currently Takes Medications as of 06-Jan-2017 09:38 documented inStructured Notes? levoFLOXacin 500 mg oral tablet: Start Date: 02-Jan-2017, Stop Date:06-Jan-2017, Last Modified Date/Time: 02-Jan-2017 13:42? oxybutynin 5 mg oral tablet: Start Date: 02-Jan-2017, Stop Date:31-Jan-2017, Last Modified Date/Time: 02-Jan-2017 13:42? potassium chloride 20 mEq oral tablet, extended release: Start Date:02-Jan-2017, Stop Date: 31-Jan-2017, Last Modified Date/Time: 02-Jan-2017 13:42? furosemide 40 mg oral tablet: Start Date: 02-Jan-2017, Stop Date:31-Jan-2017, Last Modified Date/Time: 02-Jan-2017 13:42? metoprolol tartrate 50 mg oral tablet: Start Date: 02-Jan-2017, Stop Date:31-Jan-2017, Last Modified Date/Time: 02-Jan-2017 13:42? zolpidem 5 mg oral tablet: Start Date: 02-Jan-2017, Last ModifiedDate/Time: 13:42? lisinopril 10 mg oral tablet: Start Date: 02-Jan-2017, Stop Date:31-Jan-2017, Last Modified Date/Time: 02-Jan-2017 13:42? aspirin 81 mg oral delayed release tablet: Start Date: 02-Jan-2017, LastModified Date/Time: 02-Jan-2017 13:42? isosorbide mononitrate 60 mg oral tablet, extended release: Start Date:01-Sep-2012, Stop Date: 01-Oct-2012, Last Modified Date/Time: 02-Jan-2017 13:42? nitroglycerin 0.4 mg sublingual tablet: Start Date: 01-Sep-2012, LastModified Date/Time: 02-Jan-2017 13:42? simvastatin 40 mg oral tablet: Start Date: 01-Sep-2012, Last ModifiedDate/Time: 02-Jan-2017 13:42? alendronate 70 mg oral tablet: Last Modified Date/Time: 02-Jan-2017 13:42? Centrum Silver oral tablet: Last Modified Date/Time: 02-Jan-2017 13:42? clopidogrel 75 mg oral tablet: Last Modified Date/Time: 02-Jan-2017 13:42? Zoloft 100 mg oral tablet: Last Modified Date/Time: 02-Jan-2017 13:42? Percocet 7.5/325 oral tablet: Last Modified Date/Time: 02-Jan-2017 13:42? gabapentin 800 mg oral tablet: Last Modified Date/Time: 02-Jan-2017 13:42? tiZANidine 2 mg oral tablet: Last Modified Date/Time: 02-Jan-2017 13:42? Pepcid 20 mg oral tablet: Last Modified Date/Time: 02-Jan-2017 13:42? Flonase 50 mcg/inh nasal spray: Last Modified Date/Time: 02-Jan-2017 13:42? Mary Allergy 60 mg oral tablet: Last Modified Date/Time: [id number]-Iou-[id number]:42? Os-Ramiro Calcium+D3 oral tablet: Last Modified Date/Time: 02-Jan-2017 13:42? Colace 100 mg oral capsule: Last Modified Date/Time: 02-Jan-2017 13:42Social History: denies smoking, alcohol and drug useHISTORY ATTESTATION:? Attestation I have reviewed and confirmed nurse's/medic's notes forpatient'smedications, allergies, medical history, and surgical historyPROGRESS NOTE:? ED Course:History of present illness:82-year-old female presents to the emergency room for complaints of abdominalpain and nausea began last night. Patient states pain initially started aroundher bellybutton in the lower pelvis but now is radiating to her right side.She states that she has been nauseous but has not been vomiting and she is notbeen able have a bowel movement since the pain began. She is concerned she ishaving another bowel obstruction issues had 2 in the past. She states she hasalso had 2 prior surgeries for endometriosisSocial history: Negative for alcohol and drug use.Review of systems:Gen.: No weight loss, fatigue, anorexia, insomnia, fever.Eyes: No vision loss, double visionENT: No pharyngitis, dry mouth.Cardiac: No chest pain, palpitations, syncope, near syncope.Pulmonary: No shortness of breath, cough, hemoptysis.Heme/lymph: No swollen glands, fever, bleeding.GI: No , melena, hematemesis, hematochezia, vomiting, diarrhea.: No discharge, dysuria, frequency, urgency, hematuria.Musculoskeletal: No limb pain, joint pain, joint swelling.Skin: No rashes.Review of systems is otherwise negative unless stated above or in history ofpresent illness.Physical exam:General: Vitals noted, no distress. Afebrile.EENT: Posterior oropharynx unremarkable.Cardiac: Regular, rate, rhythm, no murmur.Pulmonary: Lungs clear bilaterally with good aeration. No adventitious breathsounds.Abdomen: Soft, No peritoneal signs. Hyperactive bowel sounds, tender topalpation across the right lower side of the abdomen as well as the center ofthe abdomen. The abdomen is also slightly distended and feels like there maybe a ventral hernia present,Extremities: No peripheral edema.Skin: No rash.Neuro: No focal neurologic deficitsMedical decision making:Testing: CBC, CMP, lipase, urinalysis, CT scan of abdomen and pelvis withcontrast: Leukocytosis noted as well as elevated lipase, lactate isunremarkable, CT scan shows cecal volvulus with upgrade bowel obstruction.Treatment: The patient was given IV narcotics as well as ZofranPlan: I spoke with general surgery on-call who is familiar with the patient andcame to the emergency room to evaluate the patient. He advised me that afterreviewing the patient as well as the results that it like the patient be takento the operating room at this time. The patient was transferred to theoperating roomImpression:1. Bowel obstructionDiagnoses/Visit Problems:? Bowel obstruction:DISCHARGE DISPOSITION:? Disposition: admitted? Disposition: SurgeryCONDITION ON DISPO:? Condition on Disposition stableMEDICATION RECONCILIATION/DISCHARGE MEDS:* Outpatient Medication Status not yet specifiedAttestation:EMELY Cervantes CARE:? Is This a Critically Ill Patient noCo-Sign/Attestation:Attest ation: This is a shared visit. I have reviewed the LIP?s encounter note,approve the LIP?s documentation and provide the following additionalinformation from my personal encounter.Shared Visit Documentation: See comments/additional findings belowComments/ Additional Findings:Patient was seen and treated under my supervision agreed with the treatmentplan and disposition.Electronic Signatures:Thanh Sheth (PHYSICIAN)) (Signed 02-Jul-2017 19:49) Authored: Time Seen / ED Notes, Triage Vital Signs, History of PresentIllness, Patient History, History Attestation, Progress Note, ED Disposition(REQUIRED), AttestationMaria A Vance) (Signed 05-Jul-2017 09:57) Authored: Attestation Co-Signer: Time Seen / ED Notes, Triage Vital Signs, History of PresentIllness, Patient History, History Attestation, Progress Note, ED Disposition(REQUIRED), AttestationLast Updated: 05-Jul-2017 09:57 by Maria A Vance)References:1. Data Referenced From Triage - ED 07/02/2017 3:10 PM Normal [facility] TYPE + SCREENon 07-02-2017 ABO TYPE O Normal [facility] Comment on above: Performed By: #### L IPID ####[facility] [place] [address] RH TYPE Positive Normal [facility] Comment on above: Performed By: #### L IPID ####[facility] [place] [address] Triage - EDon 07-02-2017 Triage - ED Chart Review:CHIEF COMPLAINTALICE Wilber JUDGE is a Female patient with a chief complaint of abdominal pain.Onset of the Complaint: [id number] Date/Time: 02-Jul-2017 14:57Vital Signs:Temperature: 98.0F ( 36.6C) taken temporalBlood Pressure: 130/65 Mean:Heart Rate: 80Respiratory Rate: 16Pulse Oximetry: 94% on room air, no respiratory support. Height: 5 feet 10.00inches. 177.8 CMWeight: 103.0 pounds. Calculated 46.7 kg. (stated)Calculated BMI (kg/m2): 14.772 Calculated BSA (m2) 1.52Allergies: yesESI: 3PAINPain Scale Used: WILDAPast Medical History:? Past Medical History Reviewed yesElectronic Signatures:Obdulia Perea (RN PRN) (Signed 02-Jul-2017 15:11) Authored: Triage, Past Medical HistoryLast Updated: 02-Jul-2017 15:11 by Obdulia Perea (RN PRN) Normal [facility] UA MICROSCOPICon 07-02-2017 BACTERIA 1+ /HPF Abnormal [facility] Comment on above: Performed By: #### U AMIC ####[facility] [place] [address] HYALINE CAST 4+ /LPF Abnormal [facility] Comment on above: Performed By: #### U AMIC ####[id number] [place] [address] MUCUS 1+ /LPF Normal [facility] Comment on above: Performed By: #### U AMIC ####[address] [place] [address] RBC 1 /HPF Abnormal 0-5 [facility] Comment on above: Performed By: #### U AMIC ####[address] [address] SQUAMOUS EPITH. CELLS 2 /HPF Normal [facility] Comment on above: Performed By: #### U AMIC ####[address] [place] [address] WBC 3 /HPF Abnormal 0-5 [facility] Comment on above: Performed By: #### U AMIC ####[address] [place] [address] URINALYSISon 07-02-2017 APPEARANCE HAZY Normal CLEAR [facility] Comment on above: Performed By: #### U A ####[address] [address] BILIRUBIN Negative Normal NEGATIVE [facility] Comment on above: Performed By: #### U A ####[address] [place] [address] BLOOD Negative Normal NEGATIVE [facility] Comment on above: Performed By: #### U A ####[address] [place] [address] COLOR MARINA Normal STRAW,YELL OW [facility] Comment on above: Performed By: #### U A ####[address] [address] GLUCOSE Negative Normal NEGATIVE [facility] Comment on above: Performed By: #### U A ####[address] [place] [address] KETONES Negative Normal NEGATIVE [facility] Comment on above: Performed By: #### U A ####[address] [address] LEUKOCYTE ESTERASE TRACE Abnormal NEGATIVE [facility] Comment on above: Performed By: #### U A ####[address] [address] NITRITE Negative Normal NEGATIVE [facility] Comment on above: Performed By: #### U A ####[address] [address] pH 5.0 Normal 5.0 - 8.0 [facility] Comment on above: Performed By: #### U A ####[address] [address] Protein mass conc 30(1+) Abnormal NEGATIVE [facility] Comment on above: Performed By: #### U A ####[address] [address] SPECIFIC GRAVITY 1.026 Normal 1.005 - 1.035 [facility] Comment on above: Performed By: #### U A ####[address] [address] UROBILINOGEN <2.0 Normal 0.0 - 1.9 [facility] Comment on above: Performed By: #### U A ####[address] [address] LIPID PANEL (CORONARY RISK 2 )on 03-02-2017 Cholesterol in HDL mass conc 41.0 mg/dL Normal [facility] Comment on above: Result Comment: . AG E VERY LOW LOW NORMAL HIGH 0-19 Y < 35 < 40 40-45 ---- 20-24 Y ---- < 40 >45 ---- >24 Y ---- < 40 40-60 >60. Performed By: #### L IPID ####[address] [address] Cholesterol in LDL mass conc 69 mg/dL Normal 0 - 99 [facility] Comment on above: Result Comment: . CAROLINE KENIA ARCADIO AGE DESIRABLE OPTIMAL HIGH HIGH VERY HIGH 0-19 Y 0 - 109 --- 110-129 >/= 130 ---- 20-24 Y 0 - 119 --- 120-159 >/= 160 ---- >24 Y 0 - 99 100-129 130-159 160-189 >/=190. Performed By: #### L IPID ####[facility] [place] [address] Cholesterol in VLDL mass conc 24 mg/dL Normal 0 - 40 [facility] Comment on above: Performed By: #### L IPID ####[facility] [place] [address] Cholesterol mass conc 134 mg/dL Normal 0 - 199 [facility] Comment on above: Result Comment: . AG E DESIRABLE BORDERLINE HIGH HIGH 0-19 Y 0 - 169 170 - 199 >/= 200 20-24 Y 0 - 189 190 - 224 >/= 225 >24 Y 0 - 199 200 - 239 >/= 240 All ranges are based on fasting samples. Specific therapeutic targets will vary based on patient-specific cardiac risk.. Pediatric guidelines reference:Pediatrics 2011, 128(S5). Adult guidelines reference: NCEP ATPIII Guidelines, LAURA 2001, 258:2486-97. Venipuncture immediately after or during the administration of Metamizole may lead to falsely low results. Testing should be performed immediately prior to Metamizole dosing. Performed By: #### L IPID ####[address] [place] [address] Cholesterol.total/Cho lesterol in HDL mass ratio 3.3 {ratio} Normal [facility] Comment on above: Result Comment: REF VALUESDESIRABLE < 3.4HIGH RISK > 5.0 Performed By: #### L IPID ####[facility] [place] [address] Triglyceride mass conc 122 mg/dL Normal 0 - 149 [facility] Comment on above: Result Comment: . AG E DESIRABLE BORDERLINE HIGH HIGH VERY HIGH 0 D-90 D 19 - 174 ---- ---- ----91 D- 9 Y 0 - 74 75 - 99 >/= 100 ---- 10-19 Y 0 - 89 90 - 129 >/= 130 ---- 20-24 Y 0 - 114 115 - 149 >/= 150 ---- >24 Y 0 - 149 150 - 199 200- 499 >/= 500. Venipuncture immediately after or during the administration of Metamizole may lead to falsely low results. Testing should be performed immediately prior to Metamizole dosing. Performed By: #### L IPID ####[facility] [place] [address] VITAMIN D, 25-HYDROXYon 02-10 VITAMIN D, 25-HYDROXY 34 ng/mL Normal [facility] Comment on above: Result Comment: .DEF ICIENCY: < 20 NG/MLINSUFFICIENCY: 20-29 NG/MLOPTIMUM LEVEL: 30-80 NG/MLPOSSIBLE TOXICITY: > 80 NG/MLTHIS ASSAY ACCURATELY QUANTIFIES THE SUM OFVITAMIN D3, 25-HYDROXY AND VIT D2,25-HYDROXY. Performed By: #### V TDOH ####[facility] [place] [address] URINE CULTURE,BACTERIALon URINE CULTURE,BACTERIAL PATIENT: KATHERINE JUDGE LOCATION: [facility] BILL#: [id number] : [birth year] AGE: SEX: F ORDERED BY: GOYO GARNETT: URINE COLLECTED: 01/21/17 22:12ANTIBIOTICS AT ESDRAS.: RECEIVED : 01/21/17 22:12SITE: R E S U L T S URINE CULTURE,BACTERIAL FINAL 01/22/17 14:32 NO SIGNIFICANT GROWTH. Normal [facility] Comment on above: Performed By: #### U RINC ####[facility] [place] [address] Vital Signs Date Time Vital Sign Value Performing Clinician Facility 07-25-2024 18:05-0400 Body height 152.[address] Jacobo Moya DO Work Phone: [facility] 07-25-2024 18:05-0400 Body mass index (BMI) [Ratio] 21.1 kg/m2 Dr. Jacobo Moya DO Work Phone: [facility] 07-25-2024 18:05-0400 Body weight 48.[address] Jacobo Moya DO Work Phone: [facility] 07-25-2024 18:03-0400 Body temperature 97.8 [degF] Dr. Jacobo Moya DO Work Phone: [facility] 07-25-2024 18:03-0400 Diastolic blood pressure 64 mm[Hg] Dr. Jacobo Moya DO Work Phone: [facility] 07-25-2024 18:03-0400 Heart rate 63 /min Dr. Jacobo Moya DO Work Phone: [facility] 07-25-2024 18:03-0400 Respiratory rate 16 /min Dr. Jacobo Moya DO Work Phone: [facility] 07-25-2024 18:03-0400 SaO2% (BldA) [Mass fraction] 99 % Dr. Jacobo Moya DO Work Phone: [facility] 07-25-2024 18:03-0400 Systolic blood pressure 132 mm[Hg] Dr. Jacobo Moya DO Work Phone: [facility] 07-25-2024 16:27-0400 Inhaled oxygen flow rate 2 L/min Dr. Jacobo Moya DO Work Phone: [facility] 10-27-2022 10:08-0400 Body height 153.67 cm Christ Gardiner Work Phone: [facility] [address] [place] Work Phone: 10-27-2022 10:08-0400 Body mass index (BMI) [Ratio] 19.78 kg/m2 Christ Gardiner Work Phone: JD-Ofjbkgvhvp[facility]Vj[address] [place] Work Phone: 10-27-2022 10:08-0400 Body surface area Derived from formula 1.42 m2 Christ Gardiner Work Phone: CG-Yrokbhpnxm-[address] [place] Work Phone: 10-27-2022 10:08-0400 Body weight 46.72 kg Christ Solorzano Nostran Work Phone: MZ-Ajkxvfvcre-Zap[address] [place] Work Phone: 10-27-2022 10:08-0400 Diastolic blood pressure 48 mm[Hg] Christ Bray Van Nostran Work Phone: QM-Tzxsaxqbid-C[address] [place] Work Phone: 10-27-2022 10:08-0400 Heart rate 90 /min Christ Bray Van Nostran Work Phone: YX-Xcwewrjrhh-Dp[address] [place] Work Phone: 10-27-2022 10:08-0400 SaO2% (BldA) [Mass fraction] 93 % Christ Solorzano Nostran Work Phone: NV-Rmolqcvdsu[facility]Ac[address] [place] Work Phone: 10-27-2022 10:08-0400 Systolic blood pressure 99 mm[Hg] Christ Solorzano Nostran Work Phone: AD-Ekakjbrjus-Dyl[address] [place] Work Phone: 10-16-2022 07:51-0400 Body temperature 98.29 [degF] Evelin Mason DO Work Phone: [employer] 10-16-2022 07:51-0400 Diastolic blood pressure 77 mm[Hg] Evelin Mason DO Work Phone: [employer] 10-16-2022 07:51-0400 Heart rate 81 /min Evelin Mason DO Work Phone: [employer] 10-16-2022 07:51-0400 Respiratory rate 18 /min Evelin Mason DO Work Phone: [employer] 10-16-2022 07:51-0400 SaO2% (BldA) [Mass fraction] 92 % Evelin Mason DO Work Phone: [facility] [employer] 10-16-2022 07:51-0400 Systolic blood pressure 128 mm[Hg] Evelin Mason DO Work Phone: [facility] [employer] 10-16-2022 05:00-0400 Body mass index (BMI) [Ratio] 20.14 kg/m2 Evelin Mason DO Work Phone: [facility] [employer] 10-16-2022 05:00-0400 Body weight 46.78 kg Evelin Mason DO Work Phone: [facility] [employer] 10-15-2022 14:41-0400 Body height 152.4 cm Evelin Mason DO Work Phone: [facility] [employer] 10-07-2022 13:41-0400 Body mass index (BMI) [Ratio] 20.09 kg/m2 Christ Gardiner DO Work Phone: [facility] 10-07-2022 13:41-0400 Body temperature 97.2 [degF] Christ Gardiner DO Work Phone: [facility] 10-07-2022 13:41-0400 Body weight 47.45 kg Christ Gardiner DO Work Phone: [facility] 10-07-2022 13:41-0400 Diastolic blood pressure 70 mm[Hg] Christ Gardiner DO Work Phone: [facility] 10-07-2022 13:41-0400 Heart rate 67 /min Christ Gardiner DO Work Phone: [facility] 10-07-2022 13:41-0400 Respiratory rate 12 /min Christ Gardiner DO Work Phone: [facility] 10-07-2022 13:41-0400 SaO2% (BldA) [Mass fraction] 90 % Christ Gardiner DO Work Phone: [facility] 10-07-2022 13:41-0400 Systolic blood pressure 122 mm[Hg] Christ Gardiner DO Work Phone: [facility] 09-11-2022 13:01-0400 Body height 153.67 cm Christmayra Solorzano Maraltran Work Phone: QQ[facility]Gontergzsa[facility]X[address] [place] Work Phone: 09-11-2022 13:01-0400 Body mass index (BMI) [Ratio] 19.59 kg/m2 Christ Bray Rashad Aliciatran Work Phone: KB-Ettwvejghc-M[address] [place] Work Phone: 09-11-2022 13:01-0400 Body surface area Derived from formula 1.41 m2 Christ Solorzano Maraltran Work Phone: RM-Xkuwjkgzci-Gmbx [address] [place] Work Phone: 09-11-2022 13:01-0400 Body weight 46.27 kg Christ Solorzano Maraltran Work Phone: NK-Wgdsomskqg-Weqv [address] [place] Work Phone: 09-11-2022 13:01-0400 Diastolic blood pressure 67 mm[Hg] Christ Solorzano Maraltran Work Phone: IH-Qjnsqhjduk-Bomz [address] [place] Work Phone: 09-11-2022 13:01-0400 Heart rate 57 /min Christ Solorzano Maraltran Work Phone: TC-Ovyyzfozdr-Aqht [address] [place] Work Phone: 09-11-2022 13:01-0400 SaO2% (BldA) [Mass fraction] 92 % Christ Solorzano Nostran Work Phone: QW-Myffntexfq-Qzrz [address] [place] Work Phone: 09-11-2022 13:01-0400 Systolic blood pressure 135 mm[Hg] Christ Solorzano Nostran Work Phone: RD-Locwlajvih-Vypz na [address] [place] Work Phone: 06-19-2022 10:40-0400 Body mass index (BMI) [Ratio] 24.08 kg/m2 Christ Barontran DO Work Phone: [facility] 06-19-2022 10:40-0400 Body temperature 98.01 [degF] Christ Barontran DO Work Phone: [facility] 06-19-2022 10:40-0400 Body weight 47.85 kg Christ Barontran DO Work Phone: [facility] 06-19-2022 10:40-0400 Diastolic blood pressure 66 mm[Hg] Christ Barontran DO Work Phone: [facility] 06-19-2022 10:40-0400 Heart rate 61 /min Christ Gardiner DO Work Phone: [facility] 06-19-2022 10:40-0400 Respiratory rate 16 /min Christ Gardiner DO Work Phone: [facility] 06-19-2022 10:40-0400 SaO2% (BldA) [Mass fraction] 91 % Christ Gardiner DO Work Phone: [facility] 06-19-2022 10:40-0400 Systolic blood pressure 113 mm[Hg] Christ Gardiner DO Work Phone: [facility] 06-12-2022 08:55-0400 Body height 153.67 cm Christ Solorzano Maraltran Work Phone: DT-Ynamximeji-Isjh [address] [place] Work Phone: 06-12-2022 08:55-0400 Body mass index (BMI) [Ratio] 20.55 kg/m2 Christ Solorzano Maraltran Work Phone: KS-Pwlughpywu-Vqiv [address] [place] Work Phone: 06-12-2022 08:55-0400 Body surface area Derived from formula 1.44 m2 Christ Solorzano Maraltran Work Phone: JU-Hziaeoxbom-Grvj [address] [place] Work Phone: 06-12-2022 08:55-0400 Body weight 48.54 kg Christ Solorzano Nostran Work Phone: LZ-Wtxvjfwpff-Qkmv [address] [place] Work Phone: 06-12-2022 08:55-0400 Diastolic blood pressure 65 mm[Hg] Christ Solorzano Nostran Work Phone: NG-Fbstabjihg-Gljx [address] [place] Work Phone: 06-12-2022 08:55-0400 Heart rate 68 /min Christ Solorzano Nostran Work Phone: SZ-Dpzfrohzux-Ihwo [address] [place] Work Phone: 06-12-2022 08:55-0400 SaO2% (BldA) [Mass fraction] 95 % Christ Solorzano Nostran Work Phone: GK-Vupgjckgsa-Dsow [address] [place] Work Phone: 06-12-2022 08:55-0400 Systolic blood pressure 145 mm[Hg] Christ Bray Rashad Nostran Work Phone: LF-Jfqbvjuhcv-Cnqj [address] [place] Work Phone: 06-10-2022 13:57-0400 Body mass index (BMI) [Ratio] 24.06 kg/m2 Christ Solorzano Nostran DO Work Phone: [facility] 06-10-2022 13:57-0400 Body temperature 98.01 [degF] Christ Solorzano Nostran DO Work Phone: [facility] 06-10-2022 13:57-0400 Body weight 47.81 kg Christ Solorzano Nostran DO Work Phone: [facility] 06-10-2022 13:57-0400 Diastolic blood pressure 62 mm[Hg] Christ Solorzano Nostran DO Work Phone: [facility] 06-10-2022 13:57-0400 Heart rate 66 /min Christ Barontran DO Work Phone: [facility] 06-10-2022 13:57-0400 Respiratory rate 14 /min Christ Barontran DO Work Phone: [facility] 06-10-2022 13:57-0400 SaO2% (BldA) [Mass fraction] 92 % Christ Barontran DO Work Phone: [facility] 06-10-2022 13:57-0400 Systolic blood pressure 130 mm[Hg] Christ Solorzano Nostran DO Work Phone: [facility] 05-30-2022 15:11-0400 Heart rate 61 /min Christ Barontran DO Work Phone: [facility] 05-30-2022 15:11-0400 SaO2% (BldA) [Mass fraction] 90 % Christ Barontran DO Work Phone: [facility] 05-30-2022 14:57-0400 Body mass index (BMI) [Ratio] 24.35 kg/m2 Christ Barontran DO Work Phone: [facility] 05-30-2022 14:57-0400 Body temperature 97.59 [degF] Christ Solorzano Nostran DO Work Phone: [facility] 05-30-2022 14:57-0400 Body weight 48.4 kg Christ Barontran DO Work Phone: [facility] 05-30-2022 14:57-0400 Respiratory rate 12 /min Christ Barontran DO Work Phone: [facility] 04-15-2022 14:18-0500 Body height 141 cm Christ Barontran DO Work Phone: [facility] 04-15-2022 14:18-0500 Body mass index (BMI) [Ratio] 24.9 kg/m2 Christ Solorzano Nostran DO Work Phone: [facility] 04-15-2022 14:18-0500 Body temperature 97.11 [degF] Christ Gardiner DO Work Phone: [facility] 04-15-2022 14:18-0500 Body weight 49.49 kg Christ Gardiner DO Work Phone: [facility] 04-15-2022 14:18-0500 Diastolic blood pressure 60 mm[Hg] Christ Barontran DO Work Phone: [facility] 04-15-2022 14:18-0500 Heart rate 63 /min Christ Gardiner DO Work Phone: [facility] 04-15-2022 14:18-0500 Respiratory rate 14 /min Christ Gardiner DO Work Phone: [facility] 04-15-2022 14:18-0500 SaO2% (BldA) [Mass fraction] 92 % Christ Gardiner DO Work Phone: [facility] 04-15-2022 14:18-0500 Systolic blood pressure 108 mm[Hg] Christ Gardiner DO Work Phone: [facility] 03-12-2022 09:59-0500 Body height 153.67 cm Christ Gardiner Work Phone: WB-Rcpowlxfco-Mrpx a Work Phone: 03-12-2022 09:59-0500 Body mass index (BMI) [Ratio] 20.94 kg/m2 Christ Gardiner Work Phone: KY-Ajnyszkiik-Scqr a Work Phone: 03-12-2022 09:59-0500 Body surface area Derived from formula 1.45 m2 Christ Gardiner Work Phone: RS-Whlfclyasg-Bgak a Work Phone: 03-12-2022 09:59-0500 Body weight 49.44 kg Christ Gardiner Work Phone: QO-Doffvmngjg-Qhyw a Work Phone: 03-12-2022 09:59-0500 Diastolic blood pressure 70 mm[Hg] Christ Solorzano Nostran Work Phone: YD-Nutjbhoask-Bngz a Work Phone: 03-12-2022 09:59-0500 Heart rate 62 /min Christ Bray Van Nostran Work Phone: JG-Mcuyxuxusa-Lyap a Work Phone: 03-12-2022 09:59-0500 SaO2% (BldA) [Mass fraction] 92 % Christ Bray Van Nostran Work Phone: OA-Pnzxjgqmdw-Vhod a Work Phone: 03-12-2022 09:59-0500 Systolic blood pressure 129 mm[Hg] Christ Bray Van Nostran Work Phone: BQ-Mflqcgohrx-Viuw a Work Phone: 10-16-2021 10:45-0400 Body mass index (BMI) [Ratio] 20.36 kg/m2 Christ Bray Van Nostran Work Phone: [facility] Work Phone: 10-16-2021 10:45-0400 Body surface area Derived from formula 1.43 m2 Christ Bray Van Nostran Work Phone: [facility] Work Phone: 10-16-2021 10:45-0400 Body temperature 97.7 [degF] Christ Bray Van Nostran Work Phone: [facility] Work Phone: 10-16-2021 10:45-0400 Body weight 48.08 kg Christ Bray Van Nostran Work Phone: [facility] Work Phone: 10-16-2021 10:45-0400 Diastolic blood pressure 75 mm[Hg] Christ E Van Nostran Work Phone: [facility] Work Phone: 10-16-2021 10:45-0400 Heart rate 61 /min Christ Bray Van Nostran [facility]: [facility] Work Phone: 10-16-2021 10:45-0400 Respiratory rate 12 /min Christ Bray Van Nostran Work Phone: [facility] Work Phone: 10-16-2021 10:45-0400 SaO2% (BldA) [Mass fraction] 93 % Christ Solorzano Nostran Work Phone: [facility] Work Phone: 10-16-2021 10:45-0400 Systolic blood pressure 150 mm[Hg] Christ Solorzano Nostran Work Phone: [facility] Work Phone: 08-14-2021 13:12-0400 Body height 153.67 cm Christ Solorzano Nostran Work Phone: KA-Vrlinegmid-Rixm na [address] [place] Work Phone: 08-14-2021 13:12-0400 Body mass index (BMI) [Ratio] 20.36 kg/m2 Christ Bray Van Nostran Work Phone: WK-Ebdfmyhzog-Xnbj na [address] [place] Work Phone: 08-14-2021 13:12-0400 Body surface area Derived from formula 1.43 m2 Christ Solorzano Nostran Work Phone: JN-Tmmtynlwgn-Zzun na [address] [place] Work Phone: 08-14-2021 13:12-0400 Body weight 48.08 kg Christ Bray Van Nostran Work Phone: AF-Jrurauglqv-Ptlj na [address] [place] Work Phone: 08-14-2021 13:12-0400 Diastolic blood pressure 72 mm[Hg] Christ Bray Van Nostran Work Phone: NT-Aidbezgsxe-Utkp na [address] [place] Work Phone: 08-14-2021 13:12-0400 Heart rate 64 /min Christ Bray Van Nostran Work Phone: DD-Vlrswnptxj-Ekqn na [address] [place] Work Phone: 08-14-2021 13:12-0400 SaO2% (BldA) [Mass fraction] 96 % Christ Bray Van Nostran Work Phone: AX-Qylwmncxfg-Wlss na [address] [place] Work Phone: 08-14-2021 13:12-0400 Systolic blood pressure 142 mm[Hg] Christ Bray Van Nostran Work Phone: GE-Lhthybnepy-Tunv na [address] [place] Work Phone: 04-11-2021 10:39-0500 Body height 153.67 cm Christ Bray Van Nostran Work Phone: [facility] Work Phone: 04-11-2021 10:39-0500 Body mass index (BMI) [Ratio] 20.07 kg/m2 Christ Bray Van Nostran Work Phone: [facility] Work Phone: 04-11-2021 10:39-0500 Body surface area Derived from formula 1.43 m2 Christ Asa Van Nostran Work Phone: [facility] Work Phone: 04-11-2021 10:39-0500 Body temperature 97.5 [degF] Christ Bray Van Nostran Work Phone: [facility] Work Phone: 04-11-2021 10:39-0500 Body weight 47.4 kg Christ Asa Van Nostran Work Phone: [facility] Work Phone: 04-11-2021 10:39-0500 Diastolic blood pressure 72 mm[Hg] Christ Bray Van Nostran Work Phone: [facility] Work Phone: 04-11-2021 10:39-0500 Heart rate 63 /min Christ Bray Van Nostran Work Phone: [facility] Work Phone: 04-11-2021 10:39-0500 Respiratory rate 10 /min Christ Bray Van Nostran [facility] Work Phone: 04-11-2021 10:39-0500 SaO2% (BldA) [Mass fraction] 96 % Christ Bray Van Nostran Work Phone: [facility] Work Phone: 04-11-2021 10:39-0500 Systolic blood pressure 116 mm[Hg] Christ Solorzano Nostran Work Phone: [facility] Work Phone: 04-05-2021 11:27-0500 Body height 153.67 cm Christ Solorzano Nostran Work Phone: GC-Hbxrssques-Yrmi a Work Phone: 04-05-2021 11:27-0500 Body mass index (BMI) [Ratio] 19.98 kg/m2 Christ Solorzano Nostran Work Phone: KU-Dkpfxkpgui-Wycy a Work Phone: 04-05-2021 11:27-0500 Body surface area Derived from formula 1.42 m2 Christ Solorzano Nostran Work Phone: NW-Rduvbrvmwa-Cjyr a Work Phone: 04-05-2021 11:27-0500 Body weight 47.17 kg Christ Solorzano Nostran Work Phone: QJ-Vbpjbuizlf-Bkjm a Work Phone: 04-05-2021 11:27-0500 Diastolic blood pressure 40 mm[Hg] Christ Solorzano Nostran Work Phone: AJ-Lqotwzvfxm-Dvvw a Work Phone: 04-05-2021 11:27-0500 Heart rate 63 /min Christ Solorzano Maraltran Work Phone: NZ-Esxqztzuke-Ckby a Work Phone: 04-05-2021 11:27-0500 SaO2% (BldA) [Mass fraction] 95 % Christ Solorzano Maraltran Work Phone: YX-Zafhxxhrgm-Lpdl a Work Phone: 04-05-2021 11:27-0500 Systolic blood pressure 82 mm[Hg] Christ Solorzano Maraltran Work Phone: VP-Cqhdbxdbye-Bmdk a Work Phone: 03-08-2021 14:30-0500 Body height 153.67 cm Christ Solorzano Maraltran Work Phone: TW-Hhnhboajwp-Qlon na Work Phone: 03-08-2021 14:30-0500 Body mass index (BMI) [Ratio] 19.59 kg/m2 Christ Solorzano Maraltran Work Phone: NF-Etcjwbonkw-Atgm na Work Phone: 03-08-2021 14:30-0500 Body surface area Derived from formula 1.41 m2 Christ Solorzano Maraltran Work Phone: GH-Vlmauujfgn-Gxyd na Work Phone: 03-08-2021 14:30-0500 Body weight 46.27 kg Christ Solorzano Maraltran Work Phone: LU-Ujbjmftmld-Tizk na Work Phone: 03-08-2021 14:30-0500 Diastolic blood pressure 74 mm[Hg] Christ Solorzano Maraltran Work Phone: HL-Qskyxnozss-Lgkt na Work Phone: 03-08-2021 14:30-0500 Heart rate 59 /min Christ Solorzano Nostran Work Phone: JE-Fcqqtofxjr-Jmlf na Work Phone: 03-08-2021 14:30-0500 SaO2% (BldA) [Mass fraction] 94 % Christ Bray Van Nostran Work Phone: JC-Sspmwlgtgu-Jxta na Work Phone: 03-08-2021 14:30-0500 Systolic blood pressure 144 mm[Hg] Christ Bray Van Nostran Work Phone: LE-Hgnrkicswd-Zwqi na Work Phone: 03-08-2021 14:30-0500 0 1 Christ Bray Van Nostran Work Phone: GS-Zcakmrmigz-Mbap na Work Phone: Comment on above: [employer] 12-25-2020 13:55-0500 Body mass index (BMI) [Ratio] 18.98 kg/m2 Christ Bray Van Nostran Work Phone: [facility] Work Phone: 12-25-2020 13:55-0500 Body surface area Derived from formula 1.37 m2 Christ Asa Van Nostran Work Phone: [facility] Work Phone: 12-25-2020 13:55-0500 Body temperature 98.4 [degF] Christ Bray Van Nostran Work Phone: [facility] Work Phone: 12-25-2020 13:55-0500 Body weight 44.09 kg Christ Bray Van Nostran Work Phone: [facility] Work Phone: 12-25-2020 13:55-0500 Diastolic blood pressure 71 mm[Hg] Christ Asa Van Nostran Work Phone: [facility] Work Phone: 12-25-2020 13:55-0500 Heart rate 69 /min Christ Bray Van Nostran Work Phone: [facility] Work Phone: 12-25-2020 13:55-0500 SaO2% (BldA) [Mass fraction] 95 % Christ Bray Van Nostran Work Phone: [facility] Work Phone: 12-25-2020 13:55-0500 Systolic blood pressure 128 mm[Hg] Christ Bray Van Nostran Work Phone: [facility] Work Phone: 10-29-2020 07:44-0400 Body mass index (BMI) [Ratio] 18.61 kg/m2 Christ Bray Van Nostran Work Phone: [facility] Work Phone: 10-29-2020 07:44-0400 Body surface area Derived from formula 1.36 m2 Christ Bray Van Nostran Work Phone: [facility] Work Phone: 10-29-2020 07:44-0400 Body temperature 98.2 [degF] Christ Bray Van Nostran Work Phone: [facility] Work Phone: 10-29-2020 07:44-0400 Body weight 43.23 kg Christ Bray Van Nostran Work Phone: [facility] Work Phone: 10-29-2020 07:44-0400 Diastolic blood pressure 62 mm[Hg] Christ Bray Van Nostran Work Phone: [facility] Work Phone: 10-29-2020 07:44-0400 Heart rate 66 /min Christ Bray Van Nostran Work Phone: [facility] Work Phone: 10-29-2020 07:44-0400 Systolic blood pressure 96 mm[Hg] Christ E Van Nostran Work Phone: [facility] Work Phone: 09-10-2020 10:53-0400 Diastolic blood pressure 61 mm[Hg] Christ Bray Van Nostran Work Phone: [facility] Work Phone: 09-10-2020 10:53-0400 Systolic blood pressure 163 mm[Hg] Christ Bray Van Nostran Work Phone: [facility] Work Phone: 09-10-2020 10:00-0400 Body height 152.4 cm Christ Bray Van Nostran Work Phone: [facility] Work Phone: 09-10-2020 10:00-0400 Body mass index (BMI) [Ratio] 19.53 kg/m2 Christ Bray Van Nostran Work Phone: [facility] Work Phone: 09-10-2020 10:00-0400 Body surface area Derived from formula 1.39 m2 Christ Bray Van Nostran Work Phone: [facility] Work Phone: 09-10-2020 10:00-0400 Body temperature 96.2 [degF] Christ Bray Van Nostran Work Phone: [facility] Work Phone: 09-10-2020 10:00-0400 Body weight 45.36 kg Christ Bray Van Nostran Work Phone: [facility] Work Phone: 09-10-2020 10:00-0400 Diastolic blood pressure 66 mm[Hg] Christ Bray Van Nostran Work Phone: [facility] Work Phone: 09-10-2020 10:00-0400 Heart rate 59 /min Christ Bray Van Nostran Work Phone: [facility] Work Phone: 09-10-2020 10:00-0400 SaO2% (BldA) [Mass fraction] 98 % Christ Solorzano Nostran Work Phone: [facility] Work Phone: 09-10-2020 10:00-0400 Systolic blood pressure 158 mm[Hg] Christ Solorzano Nostran Work Phone: [facility] Work Phone: 07-30-2020 14:11-0400 Body height 182.88 cm Christ Solorzano Nostran Work Phone: [facility] Work Phone: 07-30-2020 14:11-0400 Body mass index (BMI) [Ratio] 10.58 kg/m2 Christ Solorzano Nostran Work Phone: [facility] Work Phone: 07-30-2020 14:11-0400 Body surface area Derived from formula 1.43 m2 Christ Asa Rashad Nostran Work Phone: [facility] Work Phone: 07-30-2020 14:11-0400 Body temperature 97.7 [degF] Christ Solorzano Nostran Work Phone: [facility] Work Phone: 07-30-2020 14:11-0400 Body weight 35.38 kg Christ Asa Rashad Nostran Work Phone: [facility] Work Phone: 07-30-2020 14:11-0400 Heart rate 67 /min Christ Solorzano Nostran Work Phone: [facility] Work Phone: 03-12-2020 11:53-0500 BMI (Body Mass Index) 19.96 kg/m2 Christ Gardiner [facility] Work Phone: 03-12-2020 11:53-0500 Body Temperature 97 [degF] Christ Rashad [facility] Work Phone: 03-12-2020 11:53-0500 Body weight 46.35 kg Christ [facility] Work Phone: 03-12-2020 11:53-0500 BP Diastolic 82 mm[Hg] Christ Barontran [facility] Work Phone: 03-12-2020 11:53-0500 BP Systolic 135 mm[Hg] Christ Barontran [facility] Work Phone: 03-12-2020 11:53-0500 BSA (Body Surface Area) 1.4 m2 Christ Rashad Agosto [facility] Work Phone: 03-12-2020 11:53-0500 Pulse (Heart Rate) 74 /min Christ Rashad Agosto [facility] Work Phone: 03-12-2020 11:53-0500 Pulse Oximetry 98 % Christmayra Gardiner [facility] Work Phone: 09-06-2019 12:14-0400 BMI (Body Mass Index) 20.15 kg/m2 Christ Rashad Aliciatran [facility] Work Phone: 09-06-2019 12:14-0400 Body Temperature 98 [degF] Christ Rashad Aliciatran [facility] Work Phone: 09-06-2019 12:14-0400 Body weight 46.81 kg Christ Barontran [facility] Work Phone: 09-06-2019 12:14-0400 BP Diastolic 71 mm[Hg] [facility] Work Phone: 09-06-2019 12:14-0400 BP Systolic 128 mm[Hg] Christ Van Nostran [facility] Work Phone: 09-06-2019 12:14-0400 BSA (Body Surface Area) 1.41 m2 Christ Solorzano Nostran [facility] Work Phone: 09-06-2019 12:14-0400 Pulse (Heart Rate) 59 /min Christ Solorzano Nostran [facility] Work Phone: 09-06-2019 12:14-0400 Pulse Oximetry 93 % Christ Solorzano Nostran [facility] Work Phone: 12-10-2018 12:32-0400 BMI (Body Mass Index) 18.44 kg/m2 Crystal Senthil [facility] Work Phone: 12-10-2018 12:32-0400 Body Temperature 98 [degF] Crystal Senthil [facility] Work Phone: 12-10-2018 12:32-0400 Body weight 42.82 kg Crystal Senthil [facility] Work Phone: 12-10-2018 12:32-0400 BP Diastolic 65 mm[Hg] Crystal Senthil [facility] Work Phone: Comment on above: Location: LUE; Position: Sitting 12-10-2018 12:32-0400 BP Systolic 101 mm[Hg] Crystal Senthil [facility] Work Phone: Comment on above: Location: LUE; Position: Sitting 12-10-2018 12:32-0400 BSA (Body Surface Area) 1.36 m2 Crystal Senthil [facility] Work Phone: 12-10-2018 12:32-0400 Pulse (Heart Rate) 64 /min Crystal Senthil [facility] Work Phone: 12-10-2018 12:32-0400 Pulse Oximetry 95 % Crystal Senthil [facility] Work Phone: 12-10-2018 12:32-0400 Respiratory Rate 12 /min Crystal Senthil [facility] Work Phone: 11-30-2018 16:28-0400 BMI (Body Mass Index) 18.75 kg/m2 Costa Nieto [facility] Work Phone: 11-30-2018 16:28-0400 Body Temperature 97.7 [degF] Costa Nieto [facility] Work Phone: 11-30-2018 16:28-0400 Body weight 43.55 kg Costa Nieto [facility] Work Phone: 11-30-2018 16:28-0400 BP Diastolic 71 mm[Hg] Costa Nieto [facility] Work Phone: 11-30-2018 16:28-0400 BP Systolic 110 mm[Hg] Costa Nieto [facility] Work Phone: 11-30-2018 16:28-0400 BSA (Body Surface Area) 1.37 m2 Costa Nieto [facility] Work Phone: 11-30-2018 16:28-0400 Pulse (Heart Rate) 68 /min Costa Nieto [facility] Work Phone: 11-30-2018 16:28-0400 Pulse Oximetry 96 % Costa Nieto [facility] Work Phone: 11-30-2018 16:28-0400 Respiratory Rate 12 /min Costa Nieto [facility] Work Phone: 05-26-2018 16:15-0400 BMI (Body Mass Index) 18.98 kg/m2 Benjy [facility]ar [facility] Work Phone: 05-26-2018 16:15-0400 Body Temperature 98.1 [degF] [facility] Work Phone: 05-26-2018 16:15-0400 Body weight 44.08 kg [facility] Hugo [facility] Work Phone: 05-26-2018 16:15-0400 BP Diastolic 72 mm[Hg] Niralitayaa Rayaar [facility]GELA[facility] Work Phone: 05-26-2018 16:15-0400 BP Systolic 124 mm[Hg] Niralitayaa Garnett [facility] Work Phone: 05-26-2018 16:15-0400 BSA (Body Surface Area) 1.37 m2 Chengjuanatai Hugo [facility] Work Phone: 05-26-2018 16:15-0400 Pulse (Heart Rate) 58 /min Niralitai Hugo [facility] Work Phone: 05-26-2018 16:15-0400 Pulse Oximetry 95 % Niralitai Hugo MILLER[facility] Work Phone: 05-26-2018 16:15-0400 Respiratory Rate 12 /min Niralitai Hugo MILLER[facility] Work Phone: 05-26-2018 16:15-0400 Weight 44.08 kg Niralitayaa Garnett [facility] Work Phone: 07-07-2017 07:35-0400 Body temperature 37.0 degrees C [facility] Comment on above: Result Comment: NOTE: PATIENT RESULTS AR E NOT CORRECTED FOR TEMPERATURE. Performed By: #### U AMIC ####[place] [id number] 07-06-2017 17:24-0400 Body temperature 37.0 degrees C [facility] Comment on above: Result Comment: NOTE: PATIENT RESULTS AR E NOT CORRECTED FOR TEMPERATURE. Performed By: #### U A ####[place] [id number] 07-03-2017 03:35-0400 Body temperature 37.0 degrees C [facility] Comment on above: Result Comment: NOTE: PATIENT RESULTS AR E NOT CORRECTED FOR TEMPERATURE. Performed By: #### L IPID ####[id number] [id number] Encounters Encounter Date Encounter Type Care Provider Facility Start: 07-25-2024 Non-patient / Non-visit Dr. Thanh chopra DO -[facility] Start: 07-25-2024 Evaluation and manag ement of inpatient Dr. Hayden Diaz DO -[facility] 3 Work Phone: Start: 10-27-2022 Office outpatient vi sit 15 minutes Christ Gardiner Work Phone: KN-Hwjktjivuc-Xukvvdi n [address] [place] Work Phone: Start: 10-10-2022 Evaluation and manag ement of inpatient [facility] Start: 10-10-2022 End: 10-16-2022 Evaluation and management of inpatient Evelin Salcedo DO Work Phone: [facility] Comment on above: Proctocolitis (Prima ry Dx); Abdominal pain, generalized; Constipation, unspecified constipation type Start: 10-07-2022 End: 10-07-2022 ambulatory CHRIST GARDINER [facility] Ambulatory Start: 10-07-2022 End: 10-07-2022 Office outpatient visit 25 minutes Christ Gardiner DO Work Phone: [facility] Comment on above: Benign essential hyp ertension (Primary Dx); Osteoporosis, unspecified osteoporosis type, unspecified pathological fracture presence; Coronary artery disease without angina pectoris, unspecified vessel or lesion type, unspecified whether [place] or transplanted heart; Stage 3a chronic kidney disease (CMS/HCC); Hypercholesterolemia; Allergic rhinitis, unspecified seasonality, unspecified trigger; Multiple allergies; Lower abdominal pain; Anemia in other chronic diseases classified elsewhere Start: 09-11-2022 Office outpatient vi sit 10 minutes Christ Gardiner Work Phone: YJ-Pjjpyegwpe-Spfwvk [address] [place] Work Phone: Start: 09-11-[address] Christ Gardiner Facility:[id number] Start: 08-27-2022 AUDIT Christ Vazquez Work Phone: CE-Vggmliakhc-Ibkhc Work Phone: Start: 06-30-[address] Christ Gardiner Facility:[id number] Start: 06-19-2022 End: 06-19-[address] [facility] s Ambulatory Start: 06-19-2022 End: 06-19-2022 Office outpatient visit 15 minutes Christ Gardiner DO Work Phone: [facility] Comment on above: Hypoxia; Pneumonia of right lower lobe due to infectious organism; Abdominal pain, unspecified abdominal location Start: 06-12-2022 Office outpatient vi sit 15 minutes Christ Gardiner Work Phone: HA-Zqjtjtenav-Twosdeu n [address] [place] Work Phone: Start: 06-12-2022 [address] Ms[address] Apple Aguilar Facyaa lity:[id number] Start: 06-10-2022 End: 06-10-[address] [facility] s Ambulatory Start: 06-10-2022 End: 06-10-2022 Office outpatient visit 25 minutes Christ Gardiner DO Work Phone: [facility] Comment on above: Pneumonia of right l ower lobe due to infectious organism (Primary Dx); Hypoxia; Benign essential hypertension; Abdominal pain, unspecified abdominal location; Pneumonia of right lung due to infectious organism, unspecified part of lung Start: 05-30-[address] Christ Gardiner Facility:[id number] Start: 05-30-2022 End: 05-30-[address] [facility] Ambulatory Start: 05-30-2022 End: 05-30-2022 Office outpatient visit 40 minutes Christ Gardiner DO Work Phone: [facility] Comment on above: Hypoxia (Primary Dx) ; Coronary artery disease without angina pectoris, unspecified vessel or lesion type, unspecified whether [place] or transplanted heart; Benign essential hypertension; Pneumonia of right lung due to infectious organism, unspecified part of lung Start: 05-29-2022 End: 05-30-2022 ambulatory CHRIST GARDINER [facility] Start: 05-09-[address] Christ rehman [place] Facility:[id number] Start: 04-15-2022 Encounter for genera l adult medical examination without abnormal findings [facility]ulatory Start: 04-15-2022 End: 04-15-2022 ambulatory [facility] Ambulatory Start: 04-15-2022 End: 04-15-2022 Encounter for general adult medical examination without abnormal findings [facility] Ambulatory Start: 04-15-2022 End: 04-15-2022 Assay of hemosiderin, quant Christ Gardiner DO Work Phone: [facility] Work Phone: Start: 04-15-2022 End: 04-15-2022 Patient encounter procedure Christ Gardiner DO Work Phone: [facility] Comment on above: 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 (Primary Dx); Osteoporosis, unspecified osteoporosis type, unspecified pathological fracture presence; Screening for osteoporosis; Postmenopausal estrogen deficiency; Benign essential hypertension; Coronary artery disease without angina pectoris, unspecified vessel or lesion type, unspecified whether [place] or transplanted heart; Gastroesophageal reflux disease, unspecified whether esophagitis present; Stage 3a chronic kidney disease; Bilateral carotid artery stenosis; Aortic valve stenosis, etiology of cardiac valve disease unspecified; Anemia in other chronic diseases classified elsewhere; Hypercholesterolemia; Routine general medical examination at health care facility Start: 04-15-2022 End: 04-15-2022 Patient encounter status Christ Gardiner DO Work Phone: [facility] Work Phone: Start: 04-04-2022 Chart Update Christ Vazquez Work Phone: [facility] Work Phone: Start: 03-12-2022 FUV, Provider: Apple Beth, Status: Jd, Time: 11:30 AM Christ Gardiner Work Phone: [facility] Work Phone: Start: 03-12-2022 CAROTID, Provider: [facility], Status: Pen, Time: 10:00 AM Christ Solorzano Nostran Work Phone: [facility] Work Phone: Start: 03-12-2022 ECHO, Provider: MEDI NA HHVI,MG CARD, Status: Pen, Time: 9:00 AM Christ Solorzano Nostran Work Phone: [facility] Work Phone: Start: 03-12-2022 ambulatory GILBERT AGUILAR Faci lity:[id number] Start: 03-11-2022 AUDIT Christ Bray Van N ostran Work Phone: [facility] Work Phone: Start: 03-10-2022 AUDIT Christ Bray Van N ostran Work Phone: [facility] Work Phone: Start: 02-24-2022 AUDIT Christ Bray Van N ostran Work Phone: [facility] Work Phone: Start: 02-19-2022 AUDIT Christ E Van N ostran Work Phone: [facility] Work Phone: Start: 10-17-2021 AUDIT Christ Bray Van N ostran Work Phone: [facility] Work Phone: Start: 10-16-[address] Christ Gardiner Facility:[id number] Start: 10-16-2021 Office outpatient vi sit 40 minutes Christ Solorzano Nostran Work Phone: [facility] Work Phone: Start: 08-14-2021 Office outpatient vi sit 15 minutes Christ Solorzano Nostran Work Phone: [facility] [place] Work Phone: Start: 07-25-2021 AUDIT Christ Bray Van N ostran Work Phone: [facility] Work Phone: Start: 06-18-2021 AUDIT Christ Bray Van N ostran Work Phone: [facility] Work Phone: Start: 05-27-2021 AUDIT Christ Bray Van N ostran Work Phone: [facility] Work Phone: Start: 05-22-2021 Rx Renewal Christ Bray Van N ostran Work Phone: [facility] Work Phone: Start: 05-21-2021 AUDIT Christ Bray Van N ostran Work Phone: [facility] Work Phone: Start: 04-18-2021 Chart Update Christ Bray Van N ostran Work Phone: [facility] Work Phone: Start: 04-15-2021 AUDIT Christ Bray Van N ostran Work Phone: [facility] Work Phone: Start: 04-11-2021 Adv care pln/ no alt dcsn mkr docd or refusal Christ Bray Van Nostran Work Phone: [facility] Work Phone: Start: 04-05-2021 FUV, Provider: Apple Beth, Status: Pen, Time: 11:30 AM Christ Bray Van Nostran Work Phone: [facility] Work Phone: Start: 04-05-2021 Office outpatient vi sit 15 minutes Christ Bray Van Nostran Work Phone: [facility] Work Phone: Start: 04-04-2021 ECHO, Provider: MEDI NA HHVI,MG CARD, Status: Pen, Time: 1:00 PM Christ Bray Van Nostran Work Phone: [facility] Work Phone: Start: 04-03-2021 AUDIT Christ Bray Van N ostran Work Phone: [facility] Work Phone: Start: 03-08-2021 Current tobacco non- user cad cap copd pv dm Christ Bray Van Nostran Work Phone: [facility] Work Phone: Start: 02-28-2021 AUDIT Christ Bray Van N ostran Work Phone: [facility] Work Phone: Start: 02-20-2021 AUDIT Christ Bray Van N ostran Work Phone: [facility] Work Phone: Start: 01-23-2021 AUDIT Christ Bray Van N ostran Work Phone: [facility] Work Phone: Start: 01-17-2021 AUDIT Christ Bray Van N ostran Work Phone: [facility] Work Phone: Start: 12-25-2020 Patient encounter procedure Christ E Van Nostran Work Phone: [facility] Work Phone: Start: 11-22-2020 AUDIT Christ Bray Van N ostran Work Phone: [facility] Work Phone: Start: 10-29-2020 Patient encounter procedure Christ E Van Nostran Work Phone: [facility] Work Phone: Start: 10-26-2020 AUDIT Christ Bray Van N ostran Work Phone: [facility] Work Phone: Start: 10-25-2020 Chart Update Christ Asa Cruz ostran Work Phone: [facility] Work Phone: Start: 10-23-2020 Chart Update Christ Bray Rashad Merino ostran Work Phone: [facility] Work Phone: Start: 09-10-2020 Office outpatient vi sit 25 minutes Christ Solorzano Nostran Work Phone: [facility] Work Phone: Start: 07-30-2020 Office outpatient ne w 30 minutes Christ Barontran Work Phone: [facility] Work Phone: Start: 07-30-2020 Patient encounter procedure Christ Solorzano Nostran Work Phone: [facility] Work Phone: Start: 04-16-2020 Patient encounter procedure Christ Barontran [facility] Work Phone: Start: 04-06-2020 Office outpatient ne w 30 minutes Christ Barontran Work Phone: [facility] Work Phone: Start: 04-06-2020 Patient encounter procedure Christ Solorzano Nostran [facility] Work Phone: Start: 03-22-2020 Patient encounter procedure Christ Rashad Nostran [facility] Work Phone: Start: 03-12-2020 Patient encounter procedure Christ Rashad Nostran [facility] Work Phone: Start: 11-09-2019 Patient encounter procedure Christ Rashad Nostran [facility] Work Phone: Start: 09-06-2019 Patient encounter procedure Christ Van Nostran [facility] Work Phone: Start: 04-20-2019 Patient encounter procedure Christ Rashad Nostran [facility] Work Phone: Start: 03-04-2019 Patient encounter procedure Christ Gardiner [facility] Work Phone: Start: 12-29-2018 Patient encounter procedure Christ Rashad Agosto [facility] Work Phone: Start: 12-21-2018 Patient encounter procedure Christ Gardiner [facility] Work Phone: Start: 12-10-2018 Patient encounter procedure Fela Ndiaye [facility] Work Phone: Start: 11-30-2018 Patient encounter procedure Costa Gerson [facility] Work Phone: Start: 05-26-2018 Patient encounter procedure Yui Hugo [facility] Work Phone: Start: 02-24-2018 Patient encounter procedure Yui Hugo [facility] Work Phone: Start: 02-11-2018 Patient encounter procedure Niralitai Hugo [facility] Work Phone: Start: 12-09-2017 Patient encounter procedure Eliot Shin Facility:[facility] Start: 11-25-2017 Patient encounter procedure Niralitayaa CabralHugo [facility] Work Phone: Start: 11-19-2017 Patient encounter procedure Niralitai Hugo [facility] Work Phone: Start: 11-06-2017 Patient encounter procedure Niralitai Hugo [facility] Work Phone: Start: 11-06-2017 Patient encounter procedure Niralitai Wiliyaram Hugo Facility:[facility] Start: 10-22-2017 Patient encounter procedure Niralitai Hugo [facility] Work Phone: Start: 10-10-2017 Observation care discharge management Niralitai Hugo [facility] Start: 10-10-2017 End: 10-13-2017 Evaluation and management of inpatient Chenguttai Wiliyaram Hugo Facility:[id number] Start: 10-09-2017 Initial observation care/day 50 minutes Benjy Garnett [facility] Start: 10-05-2017 Patient encounter procedure Benjy Garnett Facility:[facility] Start: 09-06-2017 End: 09-08-2017 Evaluation and management of inpatient Flako Goodman Facility:[facility] Start: 09-05-2017 Emergency dept visit high severity&threat funcj [facility] Start: 09-05-2017 End: 09-05-2017 Patient encounter procedure Maria A Vance Facility:54 Start: 08-26-2017 End: 09-01-2017 Evaluation and management of inpatient Jessenia Tapia Facility:[facility] Start: 08-25-2017 Emergency dept visit high severity&threat funcj [facility] Cabralohar [facility] Start: 08-25-2017 End: 08-26-2017 Patient encounter procedure FINESSE PINEDA Facility:54 Start: 08-21-2017 Patient encounter procedure Benjy Garnett Facility:54 Start: 07-28-2017 Observation care discharge management [facility] Garn[facility] Start: 07-28-2017 End: 07-29-2017 Evaluation and management of inpatient Benjy Garnett Facility:54 Start: 07-27-2017 Sbsq observation car e/day 25 minutes [facility] Garnett [facility] Start: 07-26-2017 Initial observation care/day 50 minutes [facility] Garnett [facility] Start: 07-09-2017 End: 07-17-2017 Evaluation and management of inpatient Manny P Sumit Facility:54 Start: 07-02-2017 End: 07-02-2017 Patient encounter procedure Spencer Hardy Facility:54 Start: 06-18-2017 Patient encounter procedure Chrisaden Cabralstas [facility] Work Phone: Start: 04-15-2017 Patient encounter procedure Yuyaa Hugo [facility] Work Phone: Start: 03-20-2017 Patient encounter procedure Chrisuttai Hugo [facility] Work Phone: Start: 03-02-2017 Patient encounter procedure Benjy Garnett Facility:[facility] Start: 02-16-2017 Patient encounter procedure Chrischapoyaa Hugo [facility] Work Phone: Start: 01-21-2017 Patient encounter procedure Benjy Garnett Facility:[facility] Start: 01-12-2017 Patient encounter procedure Benjy Garnett [facility] Work Phone: Start: 11-25-2016 Patient encounter procedure Benjy Hugo [facility] Work Phone: Start: 10-01-2016 Patient encounter procedure Benjy Hugo [facility] Work Phone: Start: 07-30-2016 Patient encounter procedure Benjy Hugo [facility] Work Phone: Patient encounter procedure Christ Gardiner Work Phone: [facility] Work Phone: Procedures Date Procedure Procedure Detail Performing Clinician Start: 07-25-2024 Plain chest X-ray Dr. Jacobo Moya DO Work Phone: Start: 07-25-2024 Plain x-ray of pelvis and lower extremity Dr. Jacobo Moya DO Work Phone: Start: 10-16-2022 SARS-CoV-2 (COVID-19) Ag [Presence] in Respiratory specimen by Rapid immunoassay Eder Monterroso MD Work Phone: Start: 10-16-2022 Basic metabolic panel calcium total Eder Monterroso MD Work Phone: Start: 10-15-2022 Basic metabolic panel calcium total Ranjeet Tobar DO Work Phone: Start: 10-14-2022 Radiologic exam abdomen 1 view Ron booth DO Work Phone: Start: 10-14-2022 Basic metabolic panel calcium total Ranjeet Tobar DO Work Phone: Start: 10-13-2022 Radiologic exam chest 2 views Ranjeet wilson DO Work Phone: Start: 10-13-2022 Basic metabolic panel calcium total Ranjeet Tobar DO Work Phone: Start: 10-12-2022 Basic metabolic panel calcium total Ranjeet Tobar DO Work Phone: Start: 10-11-2022 Smr prim src gram/giemsa stain bct fungi/cell Ranjeet Tobar DO Work Phone: Start: 10-11-2022 Radiologic exam chest single view David Lucio MD Work Phone: Start: 10-11-2022 Comprehensive metabolic panel Akil sales MD Work Phone: Start: 10-11-2022 Drug screen quantitative vancomycin Akil Lucio MD Work Phone: Start: 10-11-2022 Iaad ia mult step method nos each organism Akil Lucio MD Work Phone: Start: 10-10-2022 Ct abdomen & pelvis w/contrast material Celeste Oneal PA-C Work Phone: Start: 10-10-2022 Urinalysis complete panel - Urine Celestesukh Oneal PA-C Work Phone: Start: 10-10-2022 Urnls dip stick/tablet reagent auto microscopy Celestesukh Solerck PA-C Work Phone: Start: 10-10-2022 SARS-COV-2, FLU A/B, AND RSV COMBO Christina cervantes Crock PA-C Work Phone: Start: 10-10-2022 Basic metabolic panel calcium total Celestesukh Oneal PA-C Work Phone: Start: 10-10-2022 Ecg routine ecg w/least 12 lds i&r only Celeste Oneal PA-C Work Phone: Start: 10-07-2022 FOLLOW UP IN ADVANCED PRIMARY CARE - PCP CHRIST GARDINER Start: 06-19-2022 FOLLOW UP IN ADVANCED PRIMARY CARE - PCP CHRIST GARDINER Start: 06-10-2022 FOLLOW UP IN ADVANCED PRIMARY CARE - PCP CHRIST GARDINER Start: 05-30-2022 Radiologic exam chest 2 views Christ Agosto DO Work Phone: Start: 05-29-2022 Basic metabolic 2000 panel - Serum or Plasma CHRIST GARDINER Start: 05-29-2022 CBC panel - Blood by Automated count [facility]RIST GARDINER Start: 05-29-2022 Lipid panel CHRIST GARDINER Start: 05-29-2022 Magnesium [Mass/volume] in Serum or Plasma CHRIST GARDINER Start: 05-29-2022 Phosphate [Mass/volume] in Serum or Plasma CHRIST GARDINER Start: 05-29-2022 VITAMIN D 25-HYDROXY,TOTAL [facility] Start: 05-29-2022 Lipid 1996 panel - Serum or Plasma Sraa Gardiner DO Work Phone: Start: 03-12-2022 Follow-up visit Start: 03-12-2022 Echocardiography Christ Gardiner Work Phone: Start: 04-04-2021 Echocardiography Christ Gardiner Work Phone: Start: 04-03-2021 Lipid 1996 panel - Serum or Plasma Sara Solorzano Nosnell DO Work Phone: Start: 04-06-2020 Echocardiography Christ Gardiner Start: 03-22-2020 Echocardiography Christ Gardiner Start: 03-13-2020 Echocardiography Christ Gardiner Start: 11-01-2019 Echocardiography Christ Gardiner Start: 09-08-2019 Basic metabolic 1998 panel - Serum or Plasma Christ Gardiner Start: 09-06-2019 Brain Natriuretic Peptide BNP Christ Gardiner Start: 12-13-2018 Basic metabolic 1998 panel - Serum or Plasma Crystal Senthil Start: 12-13-2018 CBC W Auto Differential panel - Blood Crystal Senthil Start: 12-09-2018 CBC W Auto Differential panel - Blood Christ Gardiner Start: 12-01-2018 Basic metabolic 1998 panel - Serum or Plasma Costa Nieto Start: 12-01-2018 Blood count complete auto&auto difrntl wbc Costa Nieto Start: 12-01-2018 Culture bacterial quanttative colony count urine Costa Nieto Start: 12-01-2018 Urnls dip stick/tablet rgnt auto w/o microscopy Costa Nieto Start: 11-30-2018 CBC W Auto Differential panel - Blood Costa Nieto Start: 11-30-2018 Comprehensive metabolic 2000 panel Costa Nieto Start: 10-09-2017 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/> [facility] Start: 10-09-2017 Iv infusion hydration each additional hour [facility] Start: 10-09-2017 Iv infusion ther proph addl sequential to 1 hr [facility] Start: 10-09-2017 Iv infusion therapy prophylaxis/dx ea hour Chenguttai Hugo Start: 10-09-2017 Iv infusion therapy/prophylaxis /dx 1st to 1 hr Chengoktai Hugo Start: 10-09-2017 Therapeutic injection iv push each new drug [facility] Start: 08-26-2017 Drainage of Stomach with Drainage Device, Via Natural or Artificial Opening Jessenia Tapia Start: 08-25-2017 Iv infusion hydration each additional hour Chengoktai Hugo Start: 08-25-2017 Ther proph/dx njx ea seql iv push sbst/drug fac [facility] Start: 08-25-2017 Ther proph/dx njx iv push single/1st sbst/drug [facility] Start: 08-25-2017 Therapeutic injection iv push each new drug [facility] Start: 07-28-2017 Iv infusion hydration each additional hour Chenguttai Hugo Start: 07-27-2017 Iv infusion hydration each additional hour Chenguttai Hugo Start: 07-26-2017 Iv infusion hydration each additional hour Chenguttai Hugo Start: 07-26-2017 Iv infusion therapy/prophylaxis /dx 1st to 1 hr Chengoktai Hugo Start: 07-07-2017 Echocardiography [facility] Start: 07-04-2017 Resection of Right Large Intestine, Open Approach [facility] Start: 07-04-2017 Ultrasonography of Left Jugular Veins, Guidance Benjy Garnett Start: 07-02-2017 Antibody screen Benjy Garnett Comment on above: Performed By: #### LIPID ####GENEVA [address] [id number] Start: 12-11-2011 Exploratory Laparoscopy Christ Solorzano Nostran Work Phone: Comment on above: explorative laparotomy ballon angioplast y; Start: 02-09-2009 CABG Christ Bray Van Nostran Work Phone: Start: 02-10-2008 Cataract surgery Christ Bray Van Nostran Work Phone: Start: 02-10-2008 Total knee replacement Christ Bray Van Nostran Work Phone: Start: 02-09-2003 Total knee replacement Christ Bray Van Nostran Work Phone: Start: 02-10-1972 Appendectomy Christ Bray Van Nostran Work Phone: Start: 02-10-1972 Hysterectomy Christ Bray Van Nostran Work Phone: Appendectomy Benjy marion Comment on above: Completed: 1972 Cataract surgery Benjy Garnett Comment on above: Completed: 2008 Esophagogastroduodenoscopy C hengutenid Garnett History of CABG Benjy lott Comment on above: Completed: 2009 End: 12-11-2011 History of Exploratory Laparoscopy Chris Garnett Hysterectomy Benjy marion Comment on above: Completed: 1972 Partial resection of colon S valentín Bray Mumboetran Work Phone: Screening colonoscopy Matthew Garnett Total knee replacement Chris Garnett Comment on above: Completed: 2003 Completed: 2008 Plan of Treatment Date Care Activity Detail Author Start: 05-30-2027 Lipid panel Lipid Panel [facility] Start: 04-03-2026 Lipid panel Lipid Panel [facility] Start: 07-25-2024 Hospital admission, emergency, from emergency room, medical nature [facility] Start: 07-25-2024 Plain X-ray of femur Femur Min 2 Vie ws [facility] Start: 07-25-2024 End: 07-25-2024 [facility] Start: 07-25-2024 Verification routine Wo mitzi [facility] Start: 07-25-2024 Admission procedure Ridley ster [facility] Start: [facility]-25-[facility]24 [facility] Start: 07-08-2023 DTaP/Tdap/Td Vaccine s (2 - Td or Tdap) DTaP/Tdap/Td Vaccines (2 - Td or Tdap) [facility] Start: 05-30-2023 Creatinine measurement Creatinine Le tiffany [facility] Start: 05-30-2023 Potassium measurement Potassium Leve l [facility] Start: 05-10-2023 Screening for osteoporosis Bone Density Scan [facility] Start: 04-17-2023 Annual Wellness Visi t (AWV) Annual Wellness Visit (AWV) [facility] Start: 04-17-2023 Medicare Annual Well ness Visit Medicare Annual Wellness Visit (AWV) [facility] Start: 04-09-2023 End: 10-08-2023 CBC W Auto Differential panel - Blood CBC and Auto Differential Lab Routine Anemia in other chronic diseases classified elsewhere Expected: 04/09/2023 (Approximate), Expires: 10/08/2023 [facility] Service Area Work Phone: Comment on above: Expected: 04/09/2023 (Approximate), Expires: 10/08/2023 Start: 04-09-2023 End: 10-08-2023 Comprehensive metabolic 2000 panel - Serum or Plasma Comprehensive Metabolic Panel Lab Routine Stage 3a chronic kidney disease (CMS/HCC) Anemia in other chronic diseases classified elsewhere Expected: 04/09/2023 (Approximate), Expires: 10/08/[address] [facility] Work Phone: Comment on above: Expected: 04/09/2023 (Approximate), Expires: 10/08/2023 Start: 04-09-2023 End: 10-08-2023 Ferritin [Mass/volume] in Serum or Plasma Ferritin Lab Routine Anemia in other chronic diseases classified elsewhere Expected: 04/09/2023 (Approximate), Expires: 10/08/[address] [facility] Work Phone: Comment on above: Expected: 04/09/2023 (Approximate), Expires: 10/08/2023 Start: 04-09-2023 End: 10-08-2023 Iron and Iron binding capacity panel - Serum or Plasma Iron and TIBC Lab Routine Anemia in other chronic diseases classified elsewhere Expected: 04/09/2023 (Approximate), Expires: 10/08/[address] [facility] Work Phone: Comment on above: Expected: 04/09/2023 (Approximate), Expires: 10/08/2023 Start: 04-09-2023 End: 04-09-2023 Patient encounter procedure 04/09/2023 1:30 PM EST Office Visit [facility] [address] [place] [phone] Christ Gardiner DO [address] [facility], [address] [place] [id number] [facility] Start: 03-18-2023 FUV, Provider: Apple Bteh, Status: Pen, Time: 1:00 PM FUV, Provider: Apple Beth, Status: Pen, Time: 1:00 PM DO-Mjxukuvuid-Adcx na [address] [place] Work Phone: Start: 03-12-2023 ECHO, Provider: MEDI NA HHVI,MG CARD, Status: Pen, Time: 1:00 PM ECHO, Provider: [place] HHVI,MG CARD, Status: Pen, Time: 1:00 PM [place]-Olfaymcsdy-Zcfa na [address] [place] Work Phone: Start: 03-12-2023 Echocardiography Echocardiogram [facility] Start: 10-16-2022 Creatinine measurement Creatinine Le tiffany [facility] Start: 10-16-2022 Potassium measurement Potassium Leve l [facility] Start: 10-16-2022 End: 10-16-2022 Patient encounter procedure 10/16/2022 1:00 PM EDT Office Visit [facility] [address] [place] [phone] Christ Gardiner DO [address] [facility], [address] [place], [place] [id number] [facility] Start: 10-10-2022 Influenza vaccination Influenza Vacc ine (#1) [facility] Start: 09-11-2022 FUV, Provider: Apple Beth, Status: Pen, Time: 1:00 PM FUV, Provider: Apple Beth, Status: Pen, Time: 1:00 PM XT-Oftutwomrb-D[address] [place] Work Phone: Start: 09-08-2022 FUV, Provider: Apple Beth, Status: Pen, Time: 11:30 AM FUV, Provider: Apple Beth, Status: Pen, Time: 11:30 AM [place]-Pgpwatvnvs-Syio a Work Phone: Start: 06-30-2022 End: 06-20-2023 XR Chest 2 Views XR chest 2 views Imaging Routine Pneumonia of right lower lobe due to infectious organism Expected: 06/30/2022 (Approximate), Expires: 06/20/2023 [facility] Service Area Work Phone: Comment on above: Expected: 06/30/2022 (Approximate), Expires: 06/20/2023 Start: 06-19-2022 End: 06-19-2022 Patient encounter procedure 06/19/2022 10:40 AM EDT Office Visit [facility] [facility] [address] [facility] [address] [place] [address] Christ Gardiner DO [address] [facility], [facility] [address] [place], [place] [id number] [facility] Start: 06-10-2022 End: 06-10-2022 Patient encounter procedure 06/10/2022 1:30 PM EDT Office Visit [facility], [facility] [address] [facility] [address] [place] [address] Christ Gardiner DO [address] [facility], [facility] [address] [place], [place] [id number] [facility] Start: 04-15-2022 Patient encounter procedure MCRANNUAL, Provider: Christ Gardiner, Status: Pen, Time: 2:00 PM [facility] Work Phone: Start: 04-15-2022 End: 04-16-2023 Basic metabolic 2000 panel - Serum or Plasma Basic Metabolic Panel Lab Routine Benign essential hypertension Coronary artery disease without angina pectoris, unspecified vessel or lesion type, unspecified whether [place] or transplanted heart Expected: 04/15/2022 (Approximate), Expires: 04/16/[address] [facility] Work Phone: Comment on above: Expected: 04/15/2022 (Approximate), Expires: 04/16/2023 Start: 04-15-2022 End: 04-16-2023 CBC panel - Blood by Automated count CBC Lab Routine Benign essential hypertension Coronary artery disease without angina pectoris, unspecified vessel or lesion type, unspecified whether [place] or transplanted heart Expected: 04/15/2022 (Approximate), Expires: 04/16/[address] [facility] Work Phone: Comment on above: Expected: 04/15/2022 (Approximate), Expires: 04/16/2023 Start: 04-15-2022 End: 04-16-2023 DXA Skeletal system Views for bone density XR DEXA bone density Imaging Routine Screening for osteoporosis Postmenopausal estrogen deficiency Expected: 04/15/2022, Expires: 04/16/2023 [facility] Service Area Work Phone: Comment on above: Expected: 04/15/2022 , Expires: 04/16/2023 Start: 04-15-2022 End: 04-16-2023 Lipid 1996 panel - Serum or Plasma Lipid Panel Lab Routine Coronary artery disease without angina pectoris, unspecified vessel or lesion type, unspecified whether [place] or transplanted heart Expected: 04/15/2022 (Approximate), Expires: 04/16/[address] [facility] Work Phone: Comment on above: Expected: 04/15/2022 (Approximate), Expires: 04/16/2023 Start: 04-15-2022 End: 04-16-2023 Magnesium [Mass/volume] in Serum or Plasma Magnesium Lab Routine Benign essential hypertension Expected: 04/15/2022 (Approximate), Expires: 04/16/[address] [facility] Work Phone: Comment on above: Expected: 04/15/2022 (Approximate), Expires: 04/16/2023 Start: 03-22-2022 COVID-19 Vaccine (6 - Moderna series) COVID-19 Vaccine (6 - Moderna series) [facility] Start: 03-12-2022 CAROTID, Provider: [facility], Status: Pen, Time: 2:00 PM CAROTID, Provider: [facility], Status: Pen, Time: 2:00 PM YP-Eefxnbdftj-Mpyb na 140 [place] Work Phone: Start: 03-12-2022 ECHO, Provider: [facility], Status: Pen, Time: 1:00 PM ECHO, Provider: [place], Status: Pen, Time: 1:00 PM PP-Ahvoszhbzk-Alid na 140 [place] Work Phone: Start: 03-12-2022 FUV, Provider: Apple Beth, Status: Pen, Time: 11:30 AM FUV, Provider: Apple Beth, Status: Pen, Time: 11:30 AM [facility] Work Phone: Start: 03-12-2022 CAROTID, Provider: [facility], Status: Pen, Time: 10:00 AM CAROTID, Provider: [facility], Status: Pen, Time: 10:00 AM [facility] Work Phone: Start: 03-12-2022 ECHO, Provider: [facility], Status: Pen, Time: 9:00 AM ECHO, Provider: [place], Status: Pen, Time: 9:00 AM [facility] Work Phone: Start: 10-21-2021 FUV, Provider: Christ Gardiner, Status: Pen, Time: 2:00 PM FUV, Provider: Christ Gardiner, Status: Pen, Time: 2:00 PM [facility] Work Phone: Start: 08-14-2021 EPV, Provider: Apple Beth, Status: Pen, Time: 1:00 PM EPV, Provider: Apple Beth, Status: Pen, Time: 1:00 PM YL-Cbufqswecp-Ktiz a Work Phone: Start: 06-21-2021 Diabetes mellitus screening Diabetes Screening [facility] Start: 04-11-2021 Patient encounter procedure WH-Whxfsbjlsx-Bxet na Work Phone: Start: 04-05-2021 FUV, Provider: Apple Beth, Status: Pen, Time: 11:30 AM FUV, Provider: Apple Beth, Status: Pen, Time: 11:30 AM VX-Xksyzorwtf-Pdkw na Work Phone: Start: 04-04-2021 ECHO, Provider: [facility], Status: Pen, Time: 1:00 PM ECHO, Provider: [place], Status: Pen, Time: 1:00 PM [facility] Work Phone: Start: 03-18-2021 Patient encounter procedure MCRANNUAL, Provider: Christ Gardiner, Status: Pen, Time: 10:40 AM [facility] Work Phone: Start: 03-08-2021 FUV, Provider: Apple Beth, Status: Pen, Time: 2:30 PM FUV, Provider: Apple Beth, Status: Pen, Time: 2:30 PM [facility] Work Phone: Start: 02-25-2021 EPV, Provider: Apple Beth, Status: Pen, Time: 1:30 PM EPV, Provider: Apple Beth, Status: Pen, Time: 1:30 PM [facility] Work Phone: Start: 12-25-2020 FUV, Provider: Christ Gardiner, Status: Pen, Time: 1:50 PM FUV, Provider: Christ Gardiner, Status: Pen, Time: 1:50 PM [facility] Work Phone: Start: 10-29-2020 FUVHOSP, Provider: Christ Chamberlain, Status: Pen, Time: 7:50 AM FUVHOSP, Provider: Christ Gardiner, Status: Pen, Time: 7:50 AM [facility] Work Phone: Start: 09-10-2020 FUV, Provider: Christ Gardiner, Status: Pen, Time: 10:00 AM FUV, Provider: Christ Gardiner, Status: Pen, Time: 10:00 AM [facility] davon Work Phone: Start: 03-07-2020 Screening for osteoporosis Bone Density Scan [facility] Start: 12-01-2018 Culture bacterial quanttative colony count urine Cult, Urine [facility] Work Phone: Start: 07-21-2018 Zoster Vaccines (2 of 2) Zoste r Vaccines (2 of 2) [facility] Start: 08-04-2013 DTaP/Tdap/Td Vaccine s (2 - Td or Tdap) DTaP/Tdap/Td Vaccines (2 - Td or Tdap) [facility] Start: 1986 Zoster Vaccines (1 of 2) Zoste r Vaccines (1 of 2) [facility] Start: 1948 Depression Screening Depression Scre ening [facility] Start: 1936 Medicare Annual Well ness (AWV) Medicare Annual Wellness (AWV) [facility] Start: 1936 Screening for osteoporosis Bone Density Scan [facility] Start: 1936 Thyroid stimulating hormone measurement TSH Level [facility] End: 10-10-2022 Bacteria identified in Lower respiratory specimen by Aerobe culture Respiratory culture and Stain Microbiology Routine Once (Lab) for 1 Occurrences starting 10/10/2022 until 10/10/2022 [facility] Work Phone: Comment on above: Once (Lab) for 1 Occ urrences starting 10/10/2022 until 10/10/2022 Basic metabolic 1998 panel - Serum or Plasma Basic Metabolic Panel [facility] Work Phone: Comment on above: Approx [id number] Bilirubin measuremen t, urine [facility] Hemoglobin [Presence ] in Urine [facility] Measurement of keton es in urine using dipstick [facility] Microscopic urinalysis [facility] Patient referral [facility] Work Phone: pH of Urine [facility] Specific gravity of Urine [facility] Urine blood test [facility] Urine dipstick for glucose [facility] Urine dipstick for leukocyte esterase [facility] Urine dipstick for nitrite [facility] Urine dipstick for protein [facility] Urine examination [facility] Urine microscopy: epithelial cells [facility] Urine Microscopy: wh ite cells [facility] Urobilinogen [Presen ce] in Urine [facility] Work Phone: NEGATED: Highlighted row has been ruled out! Planned Goals not documented [facility] Work Phone: Immunizations Immunization Date Immunization Notes Care Provider Maria D sanchez 01-25-2022 Moderna COVID-19 Biv al Booster 50 MCG/0.5ML Intramuscular Suspension Christ Gardiner Work Phone: WP-Dppllnojlx-Cltab awn [address] [place] Work Phone: 11-23-2021 Fluzone High-Dose Quadrivalent 0.7 ML Intramuscular Suspension Prefilled Syringe Christ Gardiner Work Phone: JX-Amdovuckvo-Bvlpv awn [address] [place] Work Phone: 11-23-2021 influenza virus vaccine, unspecified formulation Christ Gardiner DO Work Phone: [facility] Work Phone: 05-31-2021 Moderna COVID-19 Vaccine 100 MCG/0.5ML Intramuscular Suspension Christ Gardiner Work Phone: [facility] 12-25-2020 Fluzone High-Dose Quadrivalent 0.7 ML Intramuscular Suspension Prefilled Syringe; Translations: [Fluzone High-Dose Quadrivalent 0.7 ML Intramuscular Suspension Prefilled Syringe] Christ Gardiner Work Phone: [facility] Work Phone: Comment on above: Series: 12-25-2020 influenza, seasonal, injectable Christ Gardiner DO Work Phone: [facility] Work Phone: 12-16-2020 Moderna COVID-19 Vaccine 100 MCG/0.5ML Intramuscular Suspension Christ Gardiner Work Phone: [facility] 07-30-2020 Moderna SARS-CoV-2 Vaccination Christ Gardiner DO Work Phone: [facility] Work Phone: 04-25-2020 Moderna COVID-19 Vaccine 100 MCG/0.5ML Intramuscular Suspension Christ Gardiner Work Phone: [facility] Work Phone: 2020 Moderna COVID-19 Vaccine 100 MCG/0.5ML Intramuscular Suspension Christ Gardiner Work Phone: [facility] 10-27-2019 Fluzone High-Dose Quadrivalent 0.7 ML Intramuscular Suspension Prefilled Syringe Christ Gardiner Work Phone: [facility] Work Phone: 10-11-2019 influenza, high dose seasonal, preservative-free Christ Gardiner [facility] Work Phone: Comment on above: Series: 11-30-2018 influenza, high dose seasonal, preservative-free; Translations: [Fluzone High-Dose 0.5 ML Intramuscular Suspension Prefilled Syringe] Costa Nieto [facility] Work Phone: Comment on above: Series: 05-26-2018 zoster vaccine recombinant; Translations: [Shingrix 50 MCG/0.5ML Intramuscular Suspension Reconstituted] [facility] Work Phone: 11-06-2017 influenza, injectabl e, quadrivalent, contains preservative [facility] Work Phone: Comment on above: Series: 10-12-2017 influenza, high dose seasonal, preservative-free; Translations: [Influenza, high dose seasonal, preservative-free] [facility] Comment on above: Series: 10-12-2017 pneumococcal conjuga te vaccine, 13 valent; Translations: [Prevnar 13 Intramuscular Suspension] [facility] Comment on above: Series: 10-01-2016 influenza, injectabl e, quadrivalent, contains preservative; Translations: [Flulaval Quadrivalent Intramuscular Suspension] [facility] Work Phone: Comment on above: Series: 11-06-2015 influenza, high dose seasonal, preservative-free Christ Gardiner Work Phone: [facility] Work Phone: 10-11-2015 influenza virus vaccine, unspecified formulation Christ Gardiner Work Phone: [facility] Work Phone: Comment on above: Series: 10-11-2015 influenza, seasonal, injectable [facility] Work Phone: 11-16-2014 influenza, seasonal, injectable [facility] Work Phone: Comment on above: Series: 11-08-2013 influenza, seasonal, injectable [facility] Work Phone: Comment on above: Series: 07-07-2013 tetanus toxoid, redu florian diphtheria toxoid, and acellular pertussis vaccine, adsorbed [facility] Work Phone: Comment on above: Series: 10-12-2012 influenza, seasonal, injectable Christ Solorzano Nostran Work Phone: [facility] Work Phone: Comment on above: Series: 10-12-2012 influenza, seasonal, injectable Benjy Garnett [facility] Work Phone: 10-24-2011 influenza, seasonal, injectable Benjy Cabralohar [facility] Work Phone: Comment on above: Series: 11-14-2008 influenza virus vaccine, unspecified formulation Christ Solorzano Nostran Work Phone: [facility] Work Phone: Comment on above: Series: 11-14-2008 pneumococcal polysaccharide vaccine, 23 valent Christ Bray Rashad Nostran Work Phone: [facility] Work Phone: Comment on above: Series: 11-14-2008 influenza, seasonal, injectable Benjy Garnett [facility] Work Phone: 11-14-2008 pneumococcal polysaccharide vaccine, 23 valent Chrisokenid Cabralohar [facility] Work Phone: Payers Date Payer Category Payer Unknown 2008 Unknown [id number] 2002 Medicare [id number] 2001 Medicare [id number] 2001 Medicare [id number] 1936 Unknown [id number] 2.16. 840.1.524704.3.579.2.356 1936 Unknown [id number] 2.16. 840.1.102328.3.579.2.356 1936 Unknown [id number] 2.16. 840.1.049885.3.579.2.356 1936 Unknown [id number] 2.16. 840.1.086128.3.579.2.356 1936 Unknown [id number] 2.16. 840.1.780676.3.579.2.356 1936 Unknown [id number] 2.16. 840.1.560092.3.579.2.356 1936 Unknown [id number] 2.16. 840.1.232243.3.579.2.356 1936 Unknown [id number] 2.16. 840.1.002116.3.579.2.356 1936 Unknown [id number] 2.16. 840.1.681805.3.579.2.356 1936 Unknown [id number] 2.16. 840.1.628747.3.579.2.356 1936 Unknown [id number] 2.16. 840.1.935255.3.579.2.356 1936 Unknown [id number] 2.16. 840.1.389750.3.579.2.356 1936 Unknown [id number] 2.16. 840.1.996276.3.579.2.356 1936 Unknown [id number] 2.16. 840.1.035437.3.579.2.356 1936 Unknown [id number] 2.16.840 .1.198161.3.579.2.1245 1936 Unknown [id number] 2.16.8 40.1.924205.3.579.2.1046 1936 Unknown [id number] 2.16. 840.1.412599.3.579.2.356 1936 Unknown [id number] 2.16. 840.1.722379.3.579.2.356 1936 Unknown [id number] 2.16. 840.1.823544.3.579.2.356 1936 Unknown [id number] 2.16. 840.1.038577.3.579.2.356 1936 Unknown [id number] 2.16. 840.1.992219.3.579.2.356 1936 Unknown [id number] 2.16. 840.1.345523.3.579.2.356 1936 Unknown [id number] 2.16. 840.1.847272.3.579.2.356 1936 Unknown [id number] 2.16.8 40.1.159578.3.579.2.1244 1936 Unknown [id number] 2.16.84 0.1.063974.3.579.2.1244 1936 Unknown [id number] 2.16.84 0.1.497899.3.579.2.1244 1936 Unknown [id number] 2.16.84 0.1.040752.3.579.2.1244 1936 Unknown [id number] 2.16.840 .1.237264.3.579.2.1244 Unknown [id number] Unknown [id number] 2.16.8 40.1.840745.3.579.2.243 Unknown [id number] Unknown [facility] [id number] Unknown [facility] [id number] Social History Date Type Detail Facility - Never smoker [facility] Work Phone: Start: 04-15-2022 End: 05-30-2022 Caffeine Use Caffeine Use [facility] [employer] Start: 04-15-2022 Tobacco smoking stat [facility] Never smoked tobacco [facility] Work Phone: Start: 04-15-2022 Tobacco use and exposure Smoke less tobacco non-user [facility] Work Phone: Start: 04-15-2022 End: 05-30-2022 Alcohol intake Ex-drinker (finding) [facility] Work Phone: Start: 04-15-2022 End: 05-30-2022 Tobacco use panel [facility] Start: 1935 [facility] Start: 04-05-2022 End: 10-10-2022 Exposure to SARS-CoV-2 (event) Not sure [facility] Start: 10-14-2022 Alcohol intake Lifetime non-drinker (finding) [facility] In the past 12 month s, has lack of transportation kept you from medical appointments or from getting medications? No [facility] In the past 12 month s, was there a time when you were not able to pay the mortgage or rent on time? No [facility] Start: 07-25-2024 Tobacco smoking stat us NHIS Ex-smoker (finding) [facility] Start: 1935 Sex Assigned At Female W [facility] NEGATED: Highlighted rowStart: TYLERF History of tobacco use Passive smoker [facility] Work Phone: Functional Status Date Assessment Result Facility NEGATED: Highlighted row Functional performance Functional status health issues are not documented Disease [facility] Work Phone: Mental Status Date Assessment Result Facility NEGATED: Highlighted row Cognitive function [Interpretation] Cognitive status health issues are not documented Disease [facility] Work Phone: Clinical Notes 06-09-2013 to 07-25-2024 Sophia Moreira RN - 10/16/2022 1:32 PM Deepak Monterroso MD - 10/15/2022 4:[address] - 10/15/2022 2:49 PM Madison Steen MD - 10/15/2022 11:09 AM EDTDischarge Instr - Diet Note Date & Type Note Facility 07-25-2024 Consult note [facility] 07-25-2024 Radiology Diagnostic study note [facility] Imaging Services [address] [place] [address] Chest 1 View (Portable) MR#: [id number] Acct: [id number] Name: KATHERINE JUDGE N Rep #: [id number] : 1935 F 89 From: Reyes Haynes MD PCP: Dr. Kam Ocampo Sr., DO Status: R EG ER Study:Chest 1 View (Portable) Date of Exam: 07/25/24 Exam# [id number] Ordering Dr: Jacobo Moya DO PROCEDURE: CHEST 1 VIEW (PORTABLE) 07/25/2024 REASON FOR EXAM: COUGH TECHNIQUE: Frontal view of the chest. COMPARISON: None FINDINGS: Hardware: EKG electrodes are seen. 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 Moderate degree of cardiomegaly. Lungs: Increased markings at the lung bases suggestive of atelectasis and/or scarring. Mild degree of vascular congestion. Bones: Degenerative changes are identified within the thoracic spine. Other: Findings suggestive of hiatal hernia. RAD/Chest 1 View (Portable) IMPRESSION: Cardiomegaly and vascular congestion with atelectasis at the lung bases. Reading Location: [place] [address] CC: Dr. Kam Ocampo Sr., ; Dr. Jacobo Moya DO ~ Terminologist: Signed [facility] 07-25-2024 Radiology Diagnostic study note [facility] Imaging Services [address] [place], [place] [address] HIP, UNI W/ Pelvis 2-3 Views MR#: [id number] Acct: [id number] Name: KATHERINE JUDGE Rep #: [id number] : 1935 F 89 From: Reyes Haynes MD PCP: Dr. Kam Ocampo Sr., DO Status: R EG ER Study:HIP, UNI W/ Pelvis 2-3 Views Date of Ex am: 07/25/24 Exam# [id number] Ordering Dr: Jacobo Moya DO PROCEDURE: HIP, UNI W/ PELVIS 2-3 VIEWS 07/25/2024 REASON FOR EXAM: INJURY/PAIN TECHNIQUE: HIP, UNI W/ PELVIS 2-3 VIEWS COMPARISON: None FINDINGS: Bones: Nondisplaced right intertrochanteric fracture. Joints: Degenerative changes of both hip joints as well as the sacroiliac joints. Soft tissues: Fecal material is seen in the colon. Other: RAD/HIP, UNI W/ Pelvis 2-3 Views IMPRESSION: Nondisplaced right intertrochanteric fracture of the proximal right femur. Reading Location: [place] [address] CC: Dr. Kam Ocampo Sr., DO; Dr. Jacobo Moya, DO ~ Terminologist: Signed [facility] 10-16-2022 History of Present illness Narrative Report called to [facility]. Nurse was informed of the paster supervisor time of 1400. Images from the original note were not included. Hospitalist Progress Note 10/15/2022 [phone]: Please secure chat me for patient care issues. [phone]: Please secure chat [facility] Hospitalist for any issues. Subjective: Admit Date: 10/10/2022 PCP: Saida Gardiner Room#: B2-259/B2-259 A Interval History: Patient is lying on the bed, abdominal pain continues to improve. Denies any nausea or vomiting. Tolerating p.o. diet well. Diarrhea also improved. No other significant overnight issues. Adult diet Regular; Low Fiber @MMGR2DVKFOT@ 24HR INTAKE/OUTPUT: Intake/Output Summary (Last 24 hours) at 10/15/2022 1614 Last data filed at 10/15/2022 1145 Gross per 24 hour Intake 500 ml Output 275 ml Net 225 ml Past Medical History: Past Medical History: Diagnosis Date CAD (coronary artery disease) Hypothyroidism Ischemic colitis (HCC) LABS: CBC: Recent Labs 10/13/2230710/14/22 0144 10/15/225 WBC 7.8 6.3 7.1 RBC 2.88* 3.05* 3.18* HGB 9.8* 10.4* 10.8* HCT 29.3* 31.0* 32.4* MCV 101.4* 101.5* 101.6* RDW 13.8 13.4 13.6 PLT 201 213 223 BMP: Recent Labs 10/13/2230710/14/2214310/15/22434 NA 138 139 140 K 4.5 4.2 4.2 CL 110* 108* 103 CO2 28 33* 35* BUN 20* 15 11 CREATININE 0.90 0.71 0.61 GLUCOSE 95 92 106* CALCIUM 8.2* 8.0* 8.3* ANIONGAP 1* -1* 1* LIVER PROFILE:No results for input(s): AST, ALT, BILITOT, ALKPHOS, PROT in the last 72 hours. No lab exists for component: LABALBU PT/INR: No results for input(s): PROTIME, INR in the last 72 hours. CARDIAC ENZYMES: No results for input(s): TROPONINI in the last 72 hours. Procalcitonin: No results found for: PROCAL COVID-19 PCR: No results for input(s): COVID19 in the last 72 hours. Objective: Vitals: BP (!) 143/75 (BP Location: Right arm, Patient Position: Lying) Comment: RN notified Pulse 82 Temp 36.8 C (98.3 F) (Temporal) Resp 16 Ht 5' (1.524 m) Wt 105 lb 8 oz (47.9 kg) SpO2 95% BMI 20.60 kg/m Pulse Ox: SpO2 Av.5 % Min: 94 % Max: 95 % Physical Exam General appearance: No apparent distress, appears stated age and cooperative with exam, elderly thin female in NAD Respiratory: CTA BL Cardiovascular: Regular rate and rhythm with no murmur Abdomen: Soft, abdominal tenderness improving., not distended Skin: Skin color, texture, turgor normal. No rashes or lesions. Distal pulses intact in BL LE, no edema in BL LE. Neurologic: grossly non-focal. Medications: atorvastatin, 10 mg, Oral, Daily azelastine, 1 spray, Each Nostril, BID buPROPion XL, 150 mg, Oral, Daily cetirizine, 10 mg, Oral, Daily clopidogrel, 75 mg, Oral, Once per day on Thu doxazosin, 2 mg, Oral, Nightly enoxaparin, 40 mg, SubCUTAneous, Daily gabapentin, 600 mg, Oral, BID isosorbide mononitrate ER, 60 mg, Oral, Daily metoprolol tartrate, 50 mg, Oral, BID mirtazapine, 30 mg, Oral, Nightly montelukast, 10 mg, Oral, Nightly potassium chloride CR, 20 mEq, Oral, Daily therapeutic multivitamin-minerals, 1 tablet, Oral, Daily Assessment Acute intractable abdominal pain. Constipation. Suspected proctocolitis-ruled out. Leukocytosis. Bibasilar opacities of the lungs. Moderate to large layering pleural effusions with atelectasis. History of: Coronary artery disease. Depression. Medical Decision Making Abdominal pain is improving. GI evaluated the patient-abdominal pain could be secondary to constipation Constipation resolved, patient is having good bowel movements. As patient is complaining of diarrhea with multiple episodes since morning, discontinued scheduled MiraLAX and Senokot. Changed to as needed MiraLAX. Discussed with infectious disease, patient finished 5 days of meropenem antibiotics discontinued. Pneumonia work-up is so far negative continue to monitor off antibiotics Continue to wean oxygen. Given her moderate to large pleural effusions follow-up chest x-ray ordered for tomorrow. Follow-up CBC BMP ordered. PT OT evaluated the patient recommended fdc facility. -am labs, replace lytes prn -increase activity -DVT prophylaxis: [] Lovenox [] Heparin [] SCDs [x] Encourage ambulation [] Already on Anticoagulation Anticipated Discharge - Date - tomorrow - Location -fdc facility - Pending the following -clinical improvement/placement Total time spent (which include face to face and non face to face encounters) : 25 minutes Toxic drug monitoring/narrow therapeutic index drug monitoring : # Drug name : # Route administered : # Method of monitoring : Extended Emergency Contact Information Primary Emergency Contact: Ganga Judge Mobile Relation: Son Preferred language: Sudanese 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 No Eder Monterroso MD Division of Hospitalist Medicine Acute care solutions PAGER: Epic chat Nutrition Assessment Type and Reason for Visit: Reassess Nutrition Recommendations/Plan: Modify diet to Adult diet Regular; Low Fiber per MNT protocol to increase food variety/options while still ensuring GI tolerance of diet. Modify ONS to Ensure Compact and Magic cup each once daily per MNT protocol. Ensure Compact provides 220 kcals, 9g protein per 4 oz serving. Magic cup provides 290 kcals, 9 g protein per serving. Please document pt's PO intakes via flowsheet to accurately assess PO intake adequacy. Monitor intakes, weights, and labs weekly. RD will follow. Malnutrition Assessment: Malnutrition Status: At risk for malnutrition (Comment) (altered GI) Context: Acute Illness Findings of the 6 clinical characteristics of malnutrition: Energy Intake: 50% or less of estimated energy requirements for 5 or more days Weight Loss: No significant weight loss Body Fat Loss: Unable to assess (anticipate some losses from natural aging process) Muscle Mass Loss: Unable to assess Fluid Accumulation: No significant fluid accumulation Patient Financial Specialist Strength: Not Performed Nutrition Assessment: Pt is very pleasant, appeared in no distress this afternoon with visitor at bedside. Pt's diet was advanced to solids today- GI [place], low fiber. Pt reported that she ordered a smaller meal and has tolerated so far without significant ab pain or discomfort. Pt stated that she tries to drink Ensure, but TID may be too frequent. Pt stated that she sometimes has a hard time finishing a whole one. Pt was willing to switch to Ensure compact and Magic cup each once daily. Pt is hoping that she can discharge tomorrow. Estimated Daily Nutrient Needs: Energy Requirements Based On: Kcal/kg Weight Used for Energy Requirements: Admission Weight for Energy Calculation (kg): 49.4 kg Total Energy Requirements (kcals/day): 5009-9038 (30-35 kcal/kg CBW) Weight Used for Protein Requirements: Admission Weight in Kg Used for Protein Requirements: 49.4 kg Estimated Total Protein (g/day): 49-74 (1.0-1.5 g protein/kg CBW) Estimated Daily Total Fluid (ml/day): per MD or ~1605 mL/day Nutrition Related Findings: no edema; CO2 35, Glucose 106, 92, 95, 107 Wound Type: (scattered bruising) Current Nutrition Therapies: Adult diet Regular; Low Fiber Current Oral Intake Average Meal Intake: 51-75% Average Supplements Intake: 26-50% Anthropometric Measures: Height: 152.4 cm (5') Current Body Weight: 47.6 kg (105 lb) Weight Source: Bed Scale Admission Body Weight: 47.4 kg (104 lb 9.6 oz) (bed) Usual Body Weight: 49.9 kg (110 lb) (10/07/22 --> limited weight history per EMR. reports 110# UBW) % Weight Change (Calculated): -4.5 [place] Body Weight (lbs) (Calculated): 100 lbs [place] Body Weight (Kg) (Calculated): 45 kg % [place] Body Weight (Calculated): 105 % BMI (kg/m2) (Calculated): 20.5 Weight Adjustment For: No Adjustment BMI Categories: Normal Weight (BMI 18.5-24.9) Nutrition Diagnosis: Altered GI function related to acute injury/trauma as evidenced by GI abnormality, constipation, diarrhea, other (comment) (from constipation then switched to diarrhea) Nutrition Interventions: Nutrition Education/Counseling: No recommendation at this time Coordination of Nutrition Care: Continue to monitor while inpatient Plan of Care discussed with: Patient Goals: Previous Goal Met: Progressing toward Goal(s) Goals: PO intake 75% or greater, by next RD assessment, other (specify) Specify Other Goals: Pt will tolerate diet without GI symptoms/discomfort Nutrition Monitoring and Evaluation: Behavioral-Environmental Outcomes: None Identified Food/Nutrient Intake Outcomes: Diet Advancement/Tolerance, Food and Nutrient Intake, Supplement Intake Physical Signs/Symptoms Outcomes: Biochemical Data, Diarrhea, Constipation, GI Status, Nausea or Vomiting, Fluid Status or Edema, Nutrition Focused Physical Findings, Skin, Weight Discharge Planning: Continue current diet, Continue Oral Nutrition Supplement Brittni Javed RD Contact: *[phone] or via Secure Chat Images from the original note were not included. Progress Note SUBJECTIVE: No acute events overnight. Abdominal pain improving. On liquid diet, wanting to eat something more substantial. Liquid BM this am. Medications @MEDCMED@ OBJECTIVE VITALS: BP (!) 143/75 (BP Location: Right arm, Patient Position: Lying) Comment: RN notified Pulse 82 Temp 36.8 C (98.3 F) (Temporal) Resp 16 Ht 1.524 m (5') Wt 47.9 kg (105 lb 8 oz) SpO2 95% BMI 20.60 kg/m TEMPERATURE: Current - Temp: 36.8 C (98.3 F); Max - Temp Av C (98.6 F) Min: 36.8 C (98.3 F) Max: 37.1 C (98.8 F) RESPIRATIONS RANGE: Resp Av Min: 16 Max: 16 PULSE RANGE: Pulse Av Min: 82 Max: 82 BLOOD PRESSURE RANGE: Systolic (24hrs), Av , Min:136 , Max:143 ; Diastolic (24hrs), Av, Min:65, Max:75 PULSE OXIMETRY RANGE: SpO2 Av.5 % Min: 94 % Max: 95 % 24HR INTAKE/OUTPUT: Intake/Output Summary (Last 24 hours) at 10/15/2022 1109 Last data filed at 10/15/2022 0600 Gross per 24 hour Intake -- Output 275 ml Net -275 ml HEENT: MMM, sclera anicteric CVS: RRR, s1, s2, no mrg Lungs: CTA B/L, no RRW Abd: Soft, mild left-sided abdominal tenderness/mild distention, +BS, No guarding/rebound, no HSM, Data Recent blood work, radiologic study and endoscopic study were reviewed with the patient. CBC: Recent Labs 10/13/22 0308 10/14/22 0144 10/15/22 0435 WBC 7.8 6.3 7.1 HGB 9.8* 10.4* 10.8* HCT 29.3* 31.0* 32.4* PLT 201 213 223 HEPATIC: No results for input(s): AST, ALT, BILITOT, ALKPHOS in the last 72 hours. No lab exists for component: ALB LIPASE/AMYLASE: No results for input(s): AMYLASE, LIPASE in the last 72 hours. LACTATE: No lab exists for component: LACTA BNP: No results for input(s): BNP in the last 72 hours. INR: No results for input(s): INR in the last 72 hours. ASSESSMENT AND PLAN Abdominal pain: Improving with BMs. Likely related to constipation. Some nonspecific wall thickening and an area of obstipation which is likely related. Rule out any underlying mild ischemic versus infectious process. Constipation: Responding to laxatives - advance diet to regular diet today - start bentyl 10mg QID PRN for abdominal cramping - continue laxatives PRN OK to discharge either later today/tomorrow based on abdominal discomfort and tolerating diet Images from the original note were not included. Hospitalist Progress Note 10/14/[id number]: Please secure chat me for patient care issues. [phone]: Please secure chat [facility] Hospitalist for any issues. Subjective: Admit Date: 10/10/2022 PCP: Saida Gardiner Room#: B2-259/B2-259 A Interval History: Patient is lying on the bed, abdominal pain is better. Complaining of multiple episodes of diarrhea. Denies any nausea or vomiting. No other significant overnight issues. Adult diet Full liquid @[id number]@ 24HR INTAKE/OUTPUT: No intake or output data in the 24 hours ending 10/14/22 1342 Past Medical History: Past Medical History: Diagnosis Date CAD (coronary artery disease) Hypothyroidism Ischemic colitis (HCC) LABS: CBC: Recent Labs 10/12/22 0633 10/13/22 0308 10/14/22 0144 WBC 12.3* 7.8 6.3 RBC 2.91* 2.88* 3.05* HGB 10.1* 9.8* 10.4* HCT 30.0* 29.3* 31.0* MCV 103.0* 101.4* 101.5* RDW 13.7 13.8 13.4 PLT 205 201 213 BMP: Recent Labs 10/12/22 0633 10/13/22 0308 10/14/22 0144 NA 141 138 139 K 4.4 4.5 4.2 CL 110* 110* 108* CO2 25 28 33* BUN 21* 20* 15 CREATININE 0.97 0.90 0.71 GLUCOSE 107* 95 92 CALCIUM 7.9* 8.2* 8.0* ANIONGAP 6 1* -1* LIVER PROFILE:No results for input(s): AST, ALT, BILITOT, ALKPHOS, PROT in the last 72 hours. No lab exists for component: LABALBU PT/INR: No results for input(s): PROTIME, INR in the last 72 hours. CARDIAC ENZYMES: No results for input(s): TROPONINI in the last 72 hours. Procalcitonin: No results found for: PROCAL COVID-19 PCR: No results for input(s): COVID19 in the last 72 hours. Objective: Vitals: BP (!) 149/80 (BP Location: Left arm, Patient Position: Lying) Pulse 78 Temp 37.1 C (98.8 F) (Temporal) Resp 17 Ht 5' (1.524 m) Wt 105 lb 8 oz (47.9 kg) SpO2 91% BMI 20.60 kg/m Pulse Ox: SpO2 Av.5 % Min: 91 % Max: 94 % Physical Exam General appearance: No apparent distress, appears stated age and cooperative with exam, elderly thin female in NAD Respiratory: CTA BL Cardiovascular: Regular rate and rhythm with no murmur Abdomen: Soft, abdominal tenderness improving., not distended Skin: Skin color, texture, turgor normal. No rashes or lesions. Distal pulses intact in BL LE, no edema in BL LE. Neurologic: grossly non-focal. Medications: atorvastatin, 10 mg, Oral, Daily azelastine, 1 spray, Each Nostril, BID buPROPion XL, 150 mg, Oral, Daily cetirizine, 10 mg, Oral, Daily clopidogrel, 75 mg, Oral, Once per day on Thu doxazosin, 2 mg, Oral, Nightly enoxaparin, 40 mg, SubCUTAneous, Daily gabapentin, 600 mg, Oral, BID isosorbide mononitrate ER, 60 mg, Oral, Daily metoprolol tartrate, 50 mg, Oral, BID mirtazapine, 30 mg, Oral, Nightly montelukast, 10 mg, Oral, Nightly potassium chloride CR, 20 mEq, Oral, Daily therapeutic multivitamin-minerals, 1 tablet, Oral, Daily Assessment Acute intractable abdominal pain. Constipation. Suspected proctocolitis-ruled out. Leukocytosis. Bibasilar opacities of the lungs. Moderate to large layering pleural effusions with atelectasis. History of: Coronary artery disease. Depression. Medical Decision Making Abdominal pain is improving. GI evaluated the patient-abdominal pain could be secondary to constipation Constipation resolved, patient is having good bowel movements. As patient is complaining of diarrhea with multiple episodes since morning, discontinued scheduled MiraLAX and Senokot. Changed to as needed MiraLAX. Discussed with infectious disease, patient finished 5 days of meropenem antibiotics discontinued. Pneumonia work-up is so far negative continue to monitor off antibiotics Continue to wean oxygen. Given her moderate to large pleural effusions follow-up chest x-ray ordered for tomorrow. Follow-up CBC BMP ordered. PT OT evaluated the patient recommended fdc facility. -am labs, replace lytes prn -increase activity -DVT prophylaxis: [] Lovenox [] Heparin [] SCDs [x] Encourage ambulation [] Already on Anticoagulation Anticipated Discharge - Date -1 to 2 days - Location -fdc facility - Pending the following -clinical improvement/placement Total time spent (which include face to face and non face to face encounters) : 25 minutes Toxic drug monitoring/narrow therapeutic index drug monitoring : # Drug name : # Route administered : # Method of monitoring : Extended Emergency Contact Information Primary Emergency Contact: Ganga Judge Mobile Relation: Son Preferred language: Sudanese 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 No Eder Monterroso MD Division of Hospitalist Medicine Acute [facility] PAGER: Epic chat Occupational Therapy Facility/Department: [facility] Occupational Therapy Initial Evaluation NAME: Katherine Judge : 1935 Date of Service: 10/14/2022 Discharge Recommendations: Retirement Facility OT Equipment Recommendations Equipment Needed: No (TBD at next level of care) Assessment REQUIRES OT FOLLOW-UP: Yes Performance deficits / Impairments: Decreased functional mobility , Decreased strength, Decreased ADL status, Decreased safe awareness, Decreased endurance, Decreased balance, Decreased high-level IADLs Assessment: Pt admitting 10/10 with abdominal pain, found to have protocolitis. Pt is independent with ADLs and functional mobility at baseline. At time of eval, pt is SBA-mod A with ADLs and min A for short distance ambulation. Pt is limited by balance, weakness, and fatigue and is functioning below baseline. Pt would benefit from skilled OT services to maxiize safety and independence with ADLs and functional mobility. Rec SNF pending progress. Prognosis: Good Decision Making: Medium Complexity History: Pt admitting 10/10 with abdominal pain, found to have protocolitis. Exam: AM-PAC Assistance / Modification: SBA-mod A Activity Tolerance Activity Tolerance: Patient limited by fatigue Patient Diagnosis(es): The primary encounter diagnosis was Proctocolitis. Diagnoses of Abdominal pain, generalized and Constipation, unspecified constipation type were also pertinent to this visit. has a past medical history of CAD (coronary artery disease), Hypothyroidism, and Ischemic colitis (HCC). has a past surgical history that includes Other surgical history. Restrictions Restrictions/Precautions Restrictions/Precautions: General Precautions, Fall Risk Required Braces or Orthoses?: No Vision/Hearing Vision: Within Functional Limits (appears) Hearing: Functional/adequate for paticipation in therapy Cognition/Orientation Overall Cognitive Status: Exceptions Arousal/Alertness: Appropriate responses to stimuli Following Commands: Follows one step commands with increased time, Follows one step commands with repetition Attention Span: Appears intact Memory: Appears intact Safety Judgement: Decreased awareness of need for safety Problem Solving: Assistance required to generate solutions, Assistance required to implement solutions, Assistance required to identify errors made, Assistance required to correct errors made, Decreased awareness of errors Insights: Decreased awareness of deficits Initiation: Does not require cues Sequencing: Does not require cues Overall Orientation Status: Impaired Orientation Level: Oriented to place, Oriented to person (limited questioning due to lethargic) Subjective General Chart Reviewed: Yes Patient Assessed for Rehabilitation Services: Yes Family / Caregiver Present: No Subjective Subjective: Pt supine in bed at arrival. Pleasant and agreeable General Comments Comments: Per RN, pt ok to see. Patient Stated Goal: none stated Pain Assessment Pain Assessment: 0-10 Pain Score: 7 Pain Location: Back Pain Interventions: Repositioned, Distraction, Ambulation/increased activity Social/Functional History Social/Functional History Lives With: Spouse Type of Home: Independent living Home Layout: One level Home Access: Level entry Bathroom Shower/Tub: Tub/Shower unit Bathroom Equipment: Shower chair Home Equipment: Rollator, Cane ADL Assistance: Independent Homemaking Assistance: Independent Ambulation Assistance: Independent Transfer Assistance: Independent Additional Comments: Pt reports she has been carrying around SPC since fall, but reports independent with no AD. Objective Gross Assessment: Yes AROM: Generally decreased, functional Strength: Generally decreased, functional (grossly 4/5) Coordination: Generally decreased, functional Sensation: Intact (denies numbness and tingling) Observation/Palpation Posture: Fair Observation: NC and PIV in tact Balance Sitting Balance: Stand by assistance Standing Balance: Minimal assistance Standing Balance Time: ~1.5 minutes Activity: static standing, ADLs Comment: Pt standing with min A for balance and no device. No true LOB noted. 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 No true LOB noted however pt demo mild unsteadiness. Increased SOB and fatigue noted. Toilet Transfers Toilet - Technique: Ambulating Equipment Used: Standard bedside commode Toilet Transfer: Minimal assistance Toilet Transfers Comments: Min A and verbal cues for hand placement. No true LOB noted. ADL Feeding: Independent Grooming: Stand by assistance UE Bathing: Stand by assistance LE Bathing: Moderate assistance UE Dressing: Stand by assistance LE Dressing: Moderate assistance Toileting: Minimal assistance Additional Comments: Pt is independent with ADLs at baseline. At time of eval, pt is SBA with UB ADLs, mod A with LB ADLs, and min A with toileting [place] [facility] d/t fatigue level. Pt completed toileting [place] [facility] with mod A for threading BLE d/t decreased functional reach secondary to decreased sitting balance. Pt required verbal cues and CGA for clothing mgmt to hips. Pt required assist for posterior pericare during toileting d/t pain. Bed mobility Supine to Sit: Stand by assistance Sit to Supine: Stand by assistance Scooting: Stand by assistance Comment: HOB elevated and use of bed rails. Denies dizziness. Increased time required to complete. Min verbal cues for initialtion. Transfers Sit to stand: Minimal assistance Stand to sit: Minimal assistance Transfer Comments: Pt standing from EOB with min A for balance. Denies dizziness. Declined to use device. Plan # of visits: 7 Current Treatment Recommendations: Strengthening, ROM, Balance Training, Functional Mobility Training, Endurance Training, Pain Management, Safety Education & Training, Patient/Caregiver Education & Training, Equipment Evaluation, Education, & procurement, Self-Care / ADL, Home Management Training Plan Comment: POC and goals established in collaboration with the pt. Safety Safety Devices in place: Yes Type of devices: All fall risk precautions in place, Call light within reach, Left in bed, Patient at risk for falls, No alarms engaged upon entry into room, Nurse notified, Gait belt Restraints Initially in place: No Outcomes Score AM-PAC Score AM-PAC Inpatient Daily Activity Raw Score: 17 ADL Inpatient CMS G-Code Modifier: CK Goals Encounter Problems Encounter Problems (Active) Dressings Lower Extremities Patient will dress lower body mod I Start: 10/14/22 Expected End: 10/21/22 Mobility Patient will demonstrate functional ambulation mod I. Start: 10/14/22 Expected End: 10/21/22 Toileting Patient will complete toileting tasks at standard toilet with modified independence. Start: 10/14/22 Expected End: 10/21/22 Transfers Patient will complete functional transfer with least restrictive device with modified independence in order to prepare for ambulation. Start: 10/14/22 Expected End: 10/21/22 Education Education Given To: Patient Education Provided: OT role, Plan of care, ADL adaptive strategies, Fall prevention strategies, Transfer training, Discharge recommendations Education Method: Verbal, Teach Back Barriers to Learning: None Education Outcome: Verbalized understanding, Continued education needed Therapy Time Individual Co-treatment Time In 0937 Time Out 0950 Minutes 13 POC supervision transferred to rehab service department occupational therapist. Laura Brown OT Images from the original note were not included. GASTROENTEROLOGY PROGRESS NOTE Patient: Katherine Judge : 1935 Primary Care Physician: Saida Gardiner History: Having multiple liquid BMs with solid balls of stool. No reported bleeding. Still with some abdominal pain but has improved. Denies any associated nausea or vomiting. No F/C/S Physical Exam: Gen: AAOx3 in NAD BP (!) 154/77 (BP Location: Right arm, Patient Position: Lying) Pulse 79 Temp 36.9 C (98.5 F) (Temporal) Resp 16 Ht 5' (1.524 m) Wt 108 lb 12.8 oz (49.4 kg) SpO2 94% BMI 21.25 kg/m HEENT: MMM, sclera anicteric CVS: RRR, s1, s2, no mrg Lungs: CTA B/L, no RRW Abd: Soft, mild to moderate left-sided abdominal tenderness/mild distention, +BS, No guarding/rebound, no HSM, Laboratory Data: CBC: Results from last 7 days Lab Units 10/13/22 0308 10/12/22 0633 10/11/22 0331 WBC AUTO 10*3/uL 7.8 12.3* 15.1* HEMOGLOBIN g/dL 9.8* 10.1* 11.8 HEMATOCRIT % 29.3* 30.0* 36.6 PLATELETS AUTO 10*3/uL 201 205 195 CMP: Recent Labs 10/12/22 0633 10/13/22 0308 NA 141 138 K 4.4 4.5 CL 110* 110* CO2 25 28 BUN 21* 20* CREATININE 0.97 0.90 GLUCOSE 107* 95 CALCIUM 7.9* 8.2* HEPATIC: Results from last 7 days Lab Units 10/11/22 0331 10/10/22 1454 ALK PHOS U/L 85 88 BILIRUBIN TOTAL mg/dL 0.8 1.0 BILIRUBIN DIRECT mg/dL -- 0.0 PROTEIN TOTAL g/dL 6.0* 7.0 ALT U/L 12 14 AST U/L 21 24 Assessment: Abdominal pain: Improving with BMs. Likely related to constipation. Some nonspecific wall thickening and an area of obstipation which is likely related. Rule out any underlying mild ischemic versus infectious process. Constipation: Responding to laxatives Plan: Continue present management Check abdominal x-ray in the a.m. Continue liquid diet with supplements for now. Hope to advance diet soon once abdominal pain improves. (Comment: Please note this report has been produced using speech recognition software and may contain errors related to that system including errors in grammar, punctuation, and spelling, as well as words and phrases that may be inappropriate. If there are any questions or concerns please feel free to contact the dictating provider for clarification.) Electronically signed by Ron Vines DO 10/13/2022 2:25 PM Images from the original note were not included. Hospitalist Progress Note 10/13/2022 [phone]: Please page me ([phone]) for patient care issues. [phone]: Please page [place] [facility] Hospitalist for any issues. Subjective: Admit Date: 10/10/2022 PCP: Saida Gardiner Room#: B2-259/B2-259 A Interval History: No overnight issues. Denies chest pain,, nausea, vomiting, diarrhea, , fevers, or chills. Constipation and abdominal pain persists, patient with several bowel movements in the interim. Mild cough and SOB persists. Adult diet Full liquid 24HR INTAKE/OUTPUT: Intake/Output Summary (Last 24 hours) at 10/13/2022 1248 Last data filed at 10/13/2022 0900 Gross per 24 hour Intake 1231 ml Output 300 ml Net 931 ml Past Medical History: Past Medical History: Diagnosis Date CAD (coronary artery disease) Hypothyroidism Ischemic colitis (HCC) LABS: CBC: Recent Labs 10/11/22 0331 10/12/22 0633 10/13/22 0308 WBC 15.1* 12.3* 7.8 RBC 3.59* 2.91* 2.88* HGB 11.8 10.1* 9.8* HCT 36.6 30.0* 29.3* MCV 102.1* 103.0* 101.4* RDW 14.1 13.7 13.8 PLT 195 205 201 BMP: Recent Labs 10/11/22 0331 10/12/22 0633 10/13/22 0308 NA 140 141 138 K 4.0 4.4 4.5 CL 107 110* 110* CO2 28 25 28 BUN 17 21* 20* CREATININE 0.72 0.97 0.90 GLUCOSE 86 107* 95 CALCIUM 8.2* 7.9* 8.2* ANIONGAP 4 6 1* LIVER PROFILE: Recent Labs 10/10/22 1454 10/11/22 0331 AST 24 21 ALT 14 12 BILITOT 1.0 0.8 ALKPHOS 88 85 PROT 7.0 6.0* PT/INR: No results for input(s): PROTIME, INR in the last 72 hours. CARDIAC ENZYMES: No results for input(s): TROPONINI in the last 72 hours. Procalcitonin: Lab Results Component Value Date PROCAL 0.14 (H) 10/11/2022 COVID-19 PCR: No results for input(s): COVID19 in the last 72 hours. Objective: Vitals: BP (!) 154/77 (BP Location: Right arm, Patient Position: Lying) Pulse 79 Temp 36.9 C (98.5 F) (Temporal) Resp 16 Ht 5' (1.524 m) Wt 108 lb 12.8 oz (49.4 kg) SpO2 94% BMI 21.25 kg/m Pulse Ox: SpO2 Av.3 % Min: 87 % Max: 95 % Supplemental O2: O2 Flow Rate (L/min): 2 L/min General appearance: No apparent distress, appears stated age and cooperative with exam, elderly thin female in NAD Respiratory: CTA BL Cardiovascular: Regular rate and rhythm with no murmur Abdomen: Soft, abdominal tenderness improving., not distended Skin: Skin color, texture, turgor normal. No rashes or lesions. Distal pulses intact in BL LE, no edema in BL LE. Neurologic: grossly non-focal. Medications: sodium chloride, 100 mL/hr, Last Rate: 100 mL/hr (10/13/22 0400) atorvastatin, 10 mg, Oral, Daily azelastine, 1 spray, Each Nostril, BID buPROPion XL, 150 mg, Oral, Daily cetirizine, 10 mg, Oral, Daily clopidogrel, 75 mg, Oral, Once per day on Thu doxazosin, 2 mg, Oral, Nightly enoxaparin, 40 mg, SubCUTAneous, Daily gabapentin, 600 mg, Oral, BID isosorbide mononitrate ER, 60 mg, Oral, Daily meropenem, 1,000 mg, IntraVENous, q8h metoprolol tartrate, 50 mg, Oral, BID mirtazapine, 30 mg, Oral, Nightly montelukast, 10 mg, Oral, Nightly polyethylene glycol (PEG) 3350, 17 g, Oral, BID potassium chloride CR, 20 mEq, Oral, Daily senna-docusate sodium, 2 tablet, Oral, Daily therapeutic multivitamin-minerals, 1 tablet, Oral, Daily Assessment Acute abdominal pain Constipation Abnormal CT abdomen and pelvis Proctocolitis, ruled out GI deemed abnormal CT to be related to constipation. Bowel regimen Completed IVF course Diet as tolerated Cough, PNA Leukocytosis Acute hypoxia In setting of PNA Continue with IV abx Wean O2 as tolerated PNA workup negative Sputum cultures pending Breathing treatments CAD Depression Home meds resumed as indicated Medical Decision Making 10/11/22: diet as tolerated. PNA workup pending. Sputum culture pending. Continue broad coverage abx. Discussed with GI, abnormal CT findings likely 2/2 constipation. Proctocolitis ruled out by GI. Bowel regimen started, continue with IVF. 10/12/22: will continue IVF 1 more day, likely discontinue tomorrow. Abdomen pain improving but still present. She has had several good bowel movements on bowel regimen. Liquid diet per GI, advance as tolerated. Continue broad coverage abx for PNA. Stop IV vancomycin today. PT/OT eval and treat 10/13/22: patient admitted for intractable abdominal pain in setting of possible proctocolitis on imaging, however Per GI on consult, likely inflammatory changes 2/2 significant constipation. Patient on bowel regimen with good bowel movements. Patient also being treated with abx and breathing treatments for PNA and acute hypoxia. PNA workup so far largely negative. PT/OT eval recommending SNF on discharge. Repeat CXR pending as patient remains hypoxic and unable to wean down. -am labs, replace lytes prn -increase activity -resume home medications as indicated -DVT prophylaxis: [x] Lovenox [] Heparin [] SCDs [x] Encourage ambulation [] Already on Anticoagulation Anticipated Discharge - Date - 10/14 vs 10/15 - Location - SNF - Pending the following - improvement in abdominal pain, regular Bowel movements. PNA workup, wean O2. Auth at SNF Toxic drug monitoring/narrow therapeutic index drug monitoring : # Drug name : # Route administered : # Method of monitoring : Extended Emergency Contact Information Primary Emergency Contact: Ganga Judge Mobile Relation: Son Preferred language: Sudanese 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 No Ranjeet Tobar DO [facility] [place] [place] [place] Epic chat Physical Therapy Facility/Department: [address] Physical Therapy Initial Evaluation NAME: Katherine Judge : 1935 Date of Service: 10/12/2022 Discharge Recommendations: Retirement Facility, Continue to assess pending progress PT Equipment Recommendations Equipment Needed: (TBD as pt progresses) Assessment Requires PT Follow-Up: Yes Assessment: Pt is an 87 y.o. female admitted 10/10 with worsening abdominal pain. Found to have constipation. Pt was previously independent with functional mobility without AD, pt reports she has been carrying around SPC but does not use. Pt is currently requiring SBA to mod A for bed mobility, min A to CGA for functional transfers and min A for x1 forward/retro step with FWW. Pt lethargic throughout session but improves with mobility, RN reports medicated for pain prior to session. Pt is currently limited by fatigue and is at an increased risk for falls. Pt will benefit from acute skilled PT to address current deficits. Recommend SNF pending progress. Performance Deficits/Impairments: Decreased functional mobility , Decreased endurance, Decreased balance, Decreased strength, Decreased posture Activity Tolerance Comment: Pt limited by lethargy Decision Making: Medium Complexity History: Pt admitted 10/10 with worsening abdominal pain. Found to have constipation Exam: AM-PAC Clinical Presentation: Pt admitted 10/10 with worsening abdominal pain. Found to have constipation. Pt has significant past medical history as indicated impacting pt's current clinical presentation. Pt is currently requiring SBA to mod A for functional mobility. Recommend SNF pending progress. Barriers to Learning: None Barriers to Learning: None Activity Tolerance Activity Tolerance: Patient limited by fatigue, Treatment limited secondary to medical complications (free text) Activity Tolerance Comments: Limited by lethargy Patient Diagnosis(es): The primary encounter diagnosis was Proctocolitis. Diagnoses of Abdominal pain, generalized and Constipation, unspecified constipation type were also pertinent to this visit. has a past medical history of CAD (coronary artery disease), Hypothyroidism, and Ischemic colitis (HCC). has a past surgical history that includes Other surgical history. Restrictions Restrictions/Precautions Restrictions/Precautions: General Precautions, Fall Risk Required Braces or Orthoses?: No Vision/Hearing Vision: Within Functional Limits (appears) Hearing: Functional/adequate for paticipation in therapy Cognition/Orientation Overall Cognitive Status: Exceptions Arousal/Alertness: Appropriate responses to stimuli Following Commands: Follows one step commands with increased time, Follows one step commands with repetition Problem Solving: Assistance required to generate solutions, Assistance required to implement solutions, Assistance required to identify errors made, Assistance required to correct errors made Initiation: Requires cues for some Sequencing: Requires cues for some Cognition Comment: Pt lethargic throughout, improving with mobility. RN reports providing pain medication prior to evaluation. Overall Orientation Status: Impaired Orientation Level: Oriented to place, Oriented to person (limited questioning due to lethargic) Subjective General Chart Reviewed: Yes Patient Assessed for Rehabilitation Services: Yes Additional Pertinent Hx: Pt admitted 10/10 with worsening abdominal pain. Found to have constipation Family / Caregiver Present: No Follows Commands: Within Functional Limits General Comment Comments: Per RN okay for therapy Subjective Subjective: Pt lethargic upon arrival, wakes to name. Increased arousal with mobility. Pt states I want to get up Patient Stated Goal: To go home Pain Assessment Pain Assessment: No/denies pain Social/Functional History Social/Functional History Lives With: Spouse Type of Home: Independent living Home Layout: One level Home Access: Level entry Bathroom Shower/Tub: Tub/Shower unit Bathroom Equipment: Shower chair Home Equipment: Rollator, Cane ADL Assistance: Independent Homemaking Assistance: Independent Ambulation Assistance: Independent With device?: No Transfer Assistance: Independent Additional Comments: Limited social functional gathered due to lethargy. Improved at end of session. Pt reports she has been carrying around SPC since fall, but reports independent with no AD. Objective Observation/Palpation Posture: Fair Observation: thoracic kyphosis. NC intact, PIV intact Gross Assessment: Yes Strength: Generally decreased, functional (noted with functional mobility) Bed mobility Rolling to Left: Stand by assistance Rolling to Right: Stand by assistance Supine to Sit: Moderate assistance Sit to Supine: Moderate assistance Scooting: Moderate assistance Comment: Pt requires mod A x1 for supine<->sit, scooting. Likely limited by lethargy. HOB elevated with use of pull pads. Initial increased time and cues for sequencing provided. Pt requires mod A to elevate trunk into upright sitting, mod A to negotiate BLE into bed. Pt requires mod A to fully scoot to EOB in preparation for functional transfers, able to partially assist and attempt. Pt denies dizziness with position change. Pt rolls to R/L for pericare at SBA with use of bed rails. Transfers Sit to Stand: Minimal Assistance Stand to sit: Contact guard assistance Comment: Pt completes x1 sit<->stand transfer from EOB to FWW. Pt requires cues for hand placement when ascending and descending. Pt requires slight min A to elevate, and completes stand->sit at CGA. Pt reports mild dizziness with position change. Pt tolerates x1 step forward/backward at FWW requiring min A, limited by lethargy, fatigue. Ambulation Ambulation: No Balance Posture: Fair Sitting - Static: Fair, + Sitting - Dynamic: Fair Standing - Static: Fair, - Standing - Dynamic: Fair, - Comments: Pt requires SBA to CGA for static sitting balance EOB with intermittent retro lean. Plan # of visits: 5 Current Treatment Recommendations: Strengthening, Balance Training, Functional Mobility Training, Transfer Training, Endurance Training, Gait Training, Neuromuscular Re-education, Pain Management, Home Exercise Program, Safety Education & Training, Patient/Caregiver Education & Training, Equipment Evaluation, Education, & procurement, Positioning Plan Comment: Goals and plan of care established in collaboration with pt Safety Safety Devices Safety Devices in Place: Yes Type of Devices: All fall risk precautions in place, Call light within reach, Gait belt, Patient at risk for falls, Left in bed, Nurse notified, Bed alarm in place (HOB alarm engaged pre/post session) AM-PAC Score AM-PAC Inpatient Mobility Raw Score (No Stairs) : 11 Goals Encounter Problems Encounter Problems (Active) Exercise Patient will complete lower extremity exercises for 1-2 sets / 5-10 reps in order to improve strength and activity tolerance for mobility. Start: 10/12/22 Expected End: 10/19/22 Mobility Patient will ambulate 100 feet with modified independence and least restrictive device in order to improve safety and independence with mobility. Start: 10/12/22 Expected End: 10/19/22 Pain - Adult Transfers Patient will perform bed mobility with modified independence in order to improve independence and prepare for out of bed mobility. Start: 10/12/22 Expected End: 10/19/22 Patient will complete functional transfer with least restrictive device with modified independence in order to prepare for ambulation. Start: 10/12/22 Expected End: 10/19/22 Education Education Given To: Patient Education Provided: Goals, PT Role, General Safety, Plan of Care, Discharge recommendations, Equipment, Precautions, Transfer Training, Functional Mobility Training Education Method: Verbal Barriers to Learning: None Education Outcome: Verbalized understanding, Demonstrated understanding, Continued education needed Therapy Time Individual Co-treatment Time In 1357 Time Out 1421 Minutes 24 [place] PT Images from the original note were not included. Hospitalist Progress Note 10/12/2022 [phone]: Please page me ([phone]) for patient care issues. [phone]: Please page [facility] Hospitalist for any issues. Subjective: Admit Date: 10/10/2022 PCP: Saida Gardiner Room#: [id number]/[id number] A Interval History: No overnight issues. Denies chest pain,, nausea, vomiting, diarrhea, , fevers, or chills. Constipation and abdominal pain improved, patient with several bowel movements in the interim. Mild cough and SOB persists. Adult diet Full liquid 24HR INTAKE/OUTPUT: Intake/Output Summary (Last 24 hours) at 10/12/2022 1209 Last data filed at 10/12/2022 0916 Gross per 24 hour Intake 769 ml Output -- Net 769 ml Past Medical History: Past Medical History: Diagnosis Date CAD (coronary artery disease) Hypothyroidism Ischemic colitis (CMS/HCC) LABS: CBC: Recent Labs 10/10/22145310/11/221 10/12/22 0633 WBC 16.9* 15.1* 12.3* RBC 3.65* 3.59* 2.91* HGB 12.6 11.8 10.1* HCT 37.3 36.6 30.0* MCV 102.0* 102.1* 103.0* RDW 14.2 14.1 13.7 PLT 217 195 205 BMP: Recent Labs 10/10/22 14510/11/22 0331 10/12/22 0633 NA 142 140 141 K 4.1 4.0 4.4 CL 103 107 110* CO2 30 28 25 BUN 22* 17 21* CREATININE 0.94 0.72 0.97 GLUCOSE 110* 86 107* CALCIUM 8.9 8.2* 7.9* ANIONGAP 8 4 6 LIVER PROFILE: Recent Labs 10/10/22 1454 10/11/22 033 AST 24 21 ALT 14 12 BILITOT 1.0 0.8 ALKPHOS 88 85 PROT 7.0 6.0* PT/INR: No results for input(s): PROTIME, INR in the last 72 hours. CARDIAC ENZYMES: No results for input(s): TROPONINI in the last 72 hours. Procalcitonin: Lab Results Component Value Date PROCAL 0.14 (H) 10/11/2022 COVID-19 PCR: No results for input(s): COVID19 in the last 72 hours. Objective: Vitals: BP 108/55 (BP Location: Right arm, Patient Position: Lying) Pulse 74 Temp 36.8 C (98.2 F) (Temporal) Resp 18 Ht 5' (1.524 m) Wt 108 lb 12.8 oz (49.4 kg) SpO2 92% BMI 21.25 kg/m Pulse Ox: SpO2 Av.5 % Min: 92 % Max: 95 % Supplemental O2: O2 Flow Rate (L/min): 2 L/min General appearance: No apparent distress, appears stated age and cooperative with exam, elderly thin female in NAD Respiratory: CTA BL Cardiovascular: Regular rate and rhythm with no murmur Abdomen: Soft, abdominal tenderness improving., not distended Skin: Skin color, texture, turgor normal. No rashes or lesions. Distal pulses intact in BL LE, no edema in BL LE. Neurologic: grossly non-focal. Medications: sodium chloride, 100 mL/hr, Last Rate: 100 mL/hr (10/11/22 1014) atorvastatin, 10 mg, Oral, Daily azelastine, 1 spray, Each Nostril, BID buPROPion XL, 150 mg, Oral, Daily cetirizine, 10 mg, Oral, Daily [START ON 10/13/2022] clopidogrel, 75 mg, Oral, Once per day on Thu doxazosin, 2 mg, Oral, Nightly enoxaparin, 40 mg, SubCUTAneous, Daily gabapentin, 600 mg, Oral, BID isosorbide mononitrate ER, 60 mg, Oral, Daily meropenem, 1,000 mg, IntraVENous, q8h metoprolol tartrate, 50 mg, Oral, BID mirtazapine, 30 mg, Oral, Nightly montelukast, 10 mg, Oral, Nightly polyethylene glycol (PEG) 3350, 17 g, Oral, BID potassium chloride CR, 20 mEq, Oral, Daily senna-docusate sodium, 2 tablet, Oral, Daily therapeutic multivitamin-minerals, 1 tablet, Oral, Daily vancomycin, 750 mg, IntraVENous, q24h Assessment Acute abdominal pain Constipation Abnormal CT abdomen and pelvis Proctocolitis, ruled out GI deemed abnormal CT to be related to constipation. Bowel regimen Continue IV hydration Diet as tolerated Cough, PNA Leukocytosis Continue with IV abx Wean O2 as tolerated PNA workup negative Sputum cultures pending Breathing treatments CAD Depression Home meds resumed as indicated Medical Decision Making 10/11/22: diet as tolerated. PNA workup pending. Sputum culture pending. Continue broad coverage abx. Discussed with GI, abnormal CT findings likely 2/2 constipation. Proctocolitis ruled out by GI. Bowel regimen started, continue with IVF. 10/12/22: will continue IVF 1 more day, likely discontinue tomorrow. Abdomen pain improving but still present. She has had several good bowel movements on bowel regimen. Liquid diet per GI, advance as tolerated. Continue broad coverage abx for PNA. Stop IV vancomycin today. PT/OT eval and treat -am labs, replace lytes prn -increase activity -resume home medications as indicated -DVT prophylaxis: [x] Lovenox [] Heparin [] SCDs [x] Encourage ambulation [] Already on Anticoagulation Anticipated Discharge - Date - 10/13 vs 10/14 - Location - Home - Pending the following - improvement in abdominal pain, regular Bowel movements. PNA workup, wean O2. PT/OT eval and treat Toxic drug monitoring/narrow therapeutic index drug monitoring : # Drug name : # Route administered : # Method of monitoring : Extended Emergency Contact Information Primary Emergency Contact: Ganga Judge Mobile Relation: Son Preferred language: Sudanese 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 No Ranjeet Tobar DO Division of Hospitalist Medicine Inpatient Medical [place] [place] Epic chat Nutrition Assessment Type and Reason for Visit: Initial, Positive Nutrition Screen Nutrition Recommendations/Plan: Continue Full liquid diet- ADAT per medical team Encourage patient to participate in room service daily Confirmed fish allergy, reports chocolate intolerance, prefers vanilla ONS Per MNT Protocol, added: Ensure Plus High Protein with breakfast (+350 kcal, 20 g protein, 240 mL/serving) Ensure High Protein BID with meals (+160 kcal, 16 g protein, 240 mL/serving) Please record % meals and oral nutrition supplements consumed in flow-sheet for most accurate nutrient intake assessment. Obtain actual standing scale weight for most accurate anthropometric data RDN to continue to monitor weekly: fluid accumulation, weight, skin integrity, trends in lab values, tolerance of diet advancement and ONS, improvement in clinical status, discharge planning. Malnutrition Assessment: Malnutrition Status: At risk for malnutrition (Comment) (monitor diet advancement and tolerance) Context: Acute Illness Findings of the 6 clinical characteristics of malnutrition: Energy Intake: Mild decrease in energy intake (Comment) (NPO/CL x 3 days) Weight Loss: Unable to assess (reports UBW is 110#, noted admit weight 108.8#) Body Fat Loss: Unable to assess Muscle Mass Loss: Unable to assess Fluid Accumulation: No significant fluid accumulation Patient Financial Specialist Strength: Not Performed Nutrition Assessment: 87 year old woman with PMHx: CAD, colitis, hypothyroidism. Presented to [facility] with worsening abdominal pain (achy and crampy). Reports decreased bowel movements and history of bowel obstructions. Significant labs on admit: WBC(16.9), BUN(22). Imaging showed stool burden in the distal colon near the rectosigmoid junction with some associated rectosigmoid wall thickening. +bm 10/10/22. GI consulted and recommended serial KUBs, liquid diet with ADAT, and aggressive bowel regimen. Continues on IVF and liquid diet this morning. Pending PNA r/o, awaiting sputum cultures. Patient resting in bed at time of assessment, bed scale weight obtained: 80.7 kg- which is in no way accurate. Patient reports poor PO intake for the past few days, diet advanced to full liquid just prior to RDN assessment. 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 Estimates UBW to be 110#, but believes she is down to 104-106#. Preferences obtained, called in Full Liquid lunch. Agreeable to Vanilla or strawberry Ensure, deferred NFPE at this time, as patient reports she is sore from MD examinations this morning Estimated Daily Nutrient Needs: Energy Requirements Based On: Kcal/kg Weight Used for Energy Requirements: Admission Weight for Energy Calculation (kg): 49.4 kg Total Energy Requirements (kcals/day): 1473-4950 (30-35 kcal/kg CBW) Weight Used for Protein Requirements: Admission Weight in Kg Used for Protein Requirements: 49.4 kg Estimated Total Protein (g/day): 49-74 (1.0-1.5 g protein/kg CBW) Estimated Daily Total Fluid (ml/day): per MD or ~1605 mL/day Nutrition Related Findings: No skin break down or edema noted. Moustapha score=18. +I/O balance. Meds and labs reviewed. NPO/CL x3 days Wound Type: None Current Nutrition Therapies: Adult diet Full liquid Current Oral Intake Average Meal Intake: Unable to assess Average Supplements Intake: None Ordered Anthropometric Measures: Height: 152.4 cm (5') Current Body Weight: 47.6 kg (105 lb) Weight Source: Stated Admission Body Weight: 47.4 kg (104 lb 9.6 oz) (bed) Usual Body Weight: 49.9 kg (110 lb) (10/07/22 --> limited weight history per EMR. reports 110# UBW) % Weight Change (Calculated): -4.5 [place] Body Weight (lbs) (Calculated): 100 lbs [place] Body Weight (Kg) (Calculated): 45 kg % [place] Body Weight (Calculated): 105 % BMI (kg/m2) (Calculated): 20.5 Weight Adjustment For: No Adjustment BMI Categories: Underweight (BMI less than 22) age over 65 Nutrition Diagnosis: Inadequate protein-energy intake related to acute injury/trauma, altered GI function as evidenced by constipation Nutrition Interventions: Nutrition Education/Counseling: Education not indicated Coordination of Nutrition Care: Continue to monitor while inpatient Plan of Care discussed with: patient Goals: Goals: Initiate PO diet, within 2 days Nutrition Monitoring and Evaluation: Behavioral-Environmental Outcomes: None Identified Food/Nutrient Intake Outcomes: Diet Advancement/Tolerance Physical Signs/Symptoms Outcomes: Biochemical Data, Chewing or Swallowing, GI Status, Fluid Status or Edema, Nausea or Vomiting, Weight, Skin, Meal Time Behavior, Hemodynamic Status Discharge Planning: Too soon to determine Kiana Wagner RDN, LDN, Contact: [phone] Images from the original note were not included. GASTROENTEROLOGY PROGRESS NOTE Patient: Katherine Judge : 1935 Primary Care Physician: Saida Gardiner History: Liquid BMs yesterday. Abdominal pain improving. Tolerating liquid diet without difficulty. Denies any N/V Physical Exam: Gen: AAOx3 in NAD BP 108/55 (BP Location: Right arm, Patient Position: Lying) Pulse 74 Temp 36.8 C (98.2 F) (Temporal) Resp 18 Ht 5' (1.524 m) Wt 108 lb 12.8 oz (49.4 kg) SpO2 92% BMI 21.25 kg/m HEENT: MMM, sclera anicteric CVS: RRR, s1, s2 Abd: Soft, mild lower abdominal tenderness to deep palpation/ND, +BS, No guarding/rebound, Laboratory Data: CBC: Results from last 7 days Lab Units 10/12/22 0633 10/11/22 0331 10/10/22 1454 WBC AUTO 10*3/uL 12.3* 15.1* 16.9* HEMOGLOBIN g/dL 10.1* 11.8 12.6 HEMATOCRIT % 30.0* 36.6 37.3 PLATELETS AUTO 10*3/uL 205 195 217 CMP: Recent Labs 10/11/22 0331 10/12/22 0633 NA 140 141 K 4.0 4.4 CL 107 110* CO2 28 25 BUN 17 21* CREATININE 0.72 0.97 GLUCOSE 86 107* CALCIUM 8.2* 7.9* HEPATIC: Results from last 7 days Lab Units 10/11/22 0331 10/10/22 1454 ALK PHOS U/L 85 88 BILIRUBIN TOTAL mg/dL 0.8 1.0 BILIRUBIN DIRECT mg/dL -- 0.0 PROTEIN TOTAL g/dL 6.0* 7.0 ALT U/L 12 14 AST U/L 21 24 LIPASE/AMYLASE: Recent Labs 10/10/22 1454 LIPASE 25 Assessment: Abdominal pain: Improving with BMs. Likely related to constipation. Some nonspecific wall thickening and an area of obstipation which is likely related. Rule out any underlying mild ischemic versus infectious process. Constipation Plan: Continue with bowel regimen Liquid diet with supplements. Advance diet as tolerated Could consider outpatient colonoscopy if recurrent symptoms and patient is agreeable. Patient is on Plavix. (Comment: Please note this report has been produced using speech recognition software and may contain errors related to that system including errors in grammar, punctuation, and spelling, as well as words and phrases that may be inappropriate. If there are any questions or concerns please feel free to contact the dictating provider for clarification.) Electronically signed by Ron Vines DO 10/12/2022 10:20 AM Pharmacy Vancomycin Consult Follow-Up Note Non-FIXED INCOME DIRECTOR Patients Current Dosinmg q24h CREATININE Date Value Ref Range Status 10/12/2022 0.97 0.52 - 1.04 mg/dL Final 10/22/2020 0.69 0.52 - 1.25 mg/dL Final UREA NITROGEN Date Value Ref Range Status 10/12/2022 21 (H) 7 - 17 mg/dL Final Auto WBC Date Value Ref Range Status 10/12/2022 12.3 (H) 3.6 - 10.7 10*3/uL Final Ht Readings from Last 1 Encounters: 10/10/22 1.524 m (5') Wt Readings from Last 1 Encounters: 10/12/22 49.4 kg (108 lb 12.8 oz) Body mass index is Body mass index is 21.25 kg/m . Calculated AUC: 658 mg/L.hr Assessment/Plan: Calculated AUC is 658 mg/L.hr, supratherapeutic since Scr has increased since yesterday. Will decrease dose to 750mg q24hr and check random level with am labs. Images from the original note were not included. Hospitalist Progress Note 10/11/2022 [phone]: Please page me ([phone]) for patient care issues. [phone]: Please page [facility] Hospitalist for any issues. Subjective: Admit Date: 10/10/2022 PCP: Saida Gardiner Room#: B2-259/B2-259 A Interval History: No overnight issues. Denies chest pain, sob, nausea, vomiting, diarrhea, , fevers, or chills. Constipation and abdominal pain reported. Mild cough, however sputum production has decreased. Adult diet Clear liquid 24HR INTAKE/OUTPUT: Intake/Output Summary (Last 24 hours) at 10/11/2022 1222 Last data filed at 10/11/2022 1116 Gross per 24 hour Intake 790.83 ml Output -- Net 790.83 ml Past Medical History: Past Medical History: Diagnosis Date CAD (coronary artery disease) Hypothyroidism Ischemic colitis (CMS/HCC) LABS: CBC: Recent Labs 10/10/22 1454 10/11/22 0331 WBC 16.9* 15.1* RBC 3.65* 3.59* HGB 12.6 11.8 HCT 37.3 36.6 MCV 102.0* 102.1* RDW 14.2 14.1 PLT 217 195 BMP: Recent Labs 10/10/22 1454 10/11/22 0331 NA 142 140 K 4.1 4.0 CL 103 107 CO2 30 28 BUN 22* 17 CREATININE 0.94 0.72 GLUCOSE 110* 86 CALCIUM 8.9 8.2* ANIONGAP 8 4 LIVER PROFILE: Recent Labs 10/10/22 1454 10/11/22 0331 AST 24 21 ALT 14 12 BILITOT 1.0 0.8 ALKPHOS 88 85 PROT 7.0 6.0* PT/INR: No results for input(s): PROTIME, INR in the last 72 hours. CARDIAC ENZYMES: No results for input(s): TROPONINI in the last 72 hours. Procalcitonin: No results found for: PROCAL COVID-19 PCR: No results for input(s): COVID19 in the last 72 hours. Objective: Vitals: BP 135/62 Pulse 96 Temp 37.2 C (99 F) (Temporal) Resp 18 Ht 5' (1.524 m) Wt 104 lb 9.6 oz (47.4 kg) SpO2 96% BMI 20.43 kg/m Pulse Ox: SpO2 Av.4 % Min: 91 % Max: 96 % Supplemental O2: O2 Flow Rate (L/min): 2 L/min General appearance: No apparent distress, appears stated age and cooperative with exam, elderly thin female in NAD Respiratory: CTA BL Cardiovascular: Regular rate and rhythm with no murmur Abdomen: Soft, RLQ tenderness, not distended Skin: Skin color, texture, turgor normal. No rashes or lesions. Distal pulses intact in BL LE, no edema in BL LE. Neurologic: grossly non-focal. Medications: sodium chloride, 100 mL/hr, Last Rate: 100 mL/hr (10/11/22 1014) atorvastatin, 10 mg, Oral, Daily azelastine, 1 spray, Each Nostril, BID bisacodyl, 10 mg, Rectal, Once buPROPion XL, 150 mg, Oral, Daily cetirizine, 10 mg, Oral, Daily [START ON 10/13/2022] clopidogrel, 75 mg, Oral, Once per day on Thu doxazosin, 2 mg, Oral, Nightly enoxaparin, 40 mg, SubCUTAneous, Daily gabapentin, 600 mg, Oral, BID isosorbide mononitrate ER, 60 mg, Oral, Daily meropenem, 1,000 mg, IntraVENous, q8h metoprolol tartrate, 50 mg, Oral, BID mirtazapine, 30 mg, Oral, Nightly montelukast, 10 mg, Oral, Nightly potassium chloride CR, 20 mEq, Oral, Daily senna-docusate sodium, 2 tablet, Oral, Daily therapeutic multivitamin-minerals, 1 tablet, Oral, Daily vancomycin, 1,000 mg, IntraVENous, q24h Assessment Acute abdominal pain Constipation Abnormal CT abdomen and pelvis Proctocolitis, ruled out GI deemed abnormal CT to be related to constipation. Bowel regimen Continue IV hydration Diet as tolerated Cough, PNA Leukocytosis Continue with IV abx Wean O2 as tolerated PNA workup pending Sputum cultures Breathing treatments CAD Depression Home meds resumed as indicated Medical Decision Making 10/11/22: diet as tolerated. PNA workup pending. Sputum culture pending. Continue broad coverage abx. Discussed with GI, abnormal CT findings likely 2/2 constipation. Proctocolitis ruled out by GI. Bowel regimen started, continue with IVF. -am labs, replace lytes prn -increase activity -resume home medications as indicated -DVT prophylaxis: [x] Lovenox [] Heparin [] SCDs [x] Encourage ambulation [] Already on Anticoagulation Anticipated Discharge - Date - 10/13/22 - Location - Home - Pending the following - improvement in abdominal pain, regular Bowel movements. PNA workup. 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 No Ranjeet Tobar DO [facility] [place]: Epic chat Attempted two IV starts, call FIXED INCOME DIRECTOR to place for antibiotics. ] Pharmacy Vancomycin Consult Follow-Up Note Non-FIXED INCOME DIRECTOR Patients Current Dosinmg x1 -> 750mg q24hr CREATININE Date Value Ref Range Status 10/11/2022 0.72 0.52 - 1.04 mg/dL Final 10/22/2020 0.69 0.52 - 1.25 mg/dL Final UREA NITROGEN Date Value Ref Range Status 10/11/2022 17 7 - 17 mg/dL Final Auto WBC Date Value Ref Range Status 10/11/2022 15.1 (H) 3.6 - 10.7 10*3/uL Final Ht Readings from Last 1 Encounters: 10/10/22 1.524 m (5') Wt Readings from Last 1 Encounters: 10/10/22 47.4 kg (104 lb 9.6 oz) Body mass index is Body mass index is 20.43 kg/m . Random: 12.5 mcg/ml drawn 10/11 at 0331 Calculated AUC: 398 mg/L.hr Assessment/Plan: Calculated AUC is 398 mg/L.hr, based on regimen of 1000mg LD -> 750mg q24hr. Renal function improved. Will increase dose to 1000mg q24hr based on pAUC of 521 and continue to follow. documented in this encounter [facility] [employer] 10-16-2022 Hospital Discharge instructions Sophia Moreira RN - 10/16/2022 1:15 PM EDT As tolerated with assistance Sophia Moreira RN - 10/16/2022 1:15 PM EDT Regular diet Sophia Mroeira RN - 10/16/2022 8:06 AM EDT Continuity of Care Form Patient Name: Katherine Judge : 1935 Admit date: 10/10/2022 Discharge date: 10-16-22 Code Status Order: Full Code Advance Directives: N Admitting Physician: Akil Lucio MD PCP: Saida Gardiner Discharging Nurse: BP MENDES Discharging Hospital Unit/Room#: B2-259/B2-259 A Discharging Unit Emergency Contact: Extended Emergency Contact Information Primary Emergency Contact: NuGanga Mobile Relation: Son Preferred language: Sudanese 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 No Past Surgical History: Past Surgical History: Procedure Laterality Date OTHER SURGICAL HISTORY she reports bowel resections in the past Immunization History: Immunization History Administered Date(s) Administered Covid-19, Moderna Bivalent Booster, (Age 6y-11y) 01/25/2022 Moderna SARS-CoV-2 Vaccination 2020, 04/25/2020, 07/30/2020, 12/16/2020, 05/31/2021 Active Problems: Medical Problems Problem List * (Principal) Proctocolitis GI bleed Acquired hypothyroidism Ischemic colitis (HCC) Diarrhea of infectious origin Colitis Hiatal hernia Presence of aortocoronary bypass graft Gout Isolation/Infection: No active isolations No active infections Nurse Assessment: Last Vital Signs: BP 128/77 (BP Location: Left arm, Patient Position: Sitting) Pulse 81 Temp 36.8 C (98.3 F) (Temporal) Resp 18 Ht 1.524 m (5') Wt 46.8 kg (103 lb 2 oz) SpO2 92% BMI 20.14 kg/m Last documented pain score (0-10 scale): Last Weight: Wt Readings from Last 1 Encounters: 10/16/22 46.8 kg (103 lb 2 oz) Mental Status: LEEANNE Patient Mental Status: oriented, alert, logical, thought processes intact, and able to concentrate and follow conversation IV Access: LEEANNE IV Access: None Nursing Mobility/ADLs: Walking Minimal assistance Transfer Minimal assistance Bathing Minimal assistance Dressing Minimal assistance Toileting Minimal assistance Feeding Minimal assistance Doubling Machine Operator Minimal assistance Med Delivery yes Wound Care Documentation and Therapy: Elimination: Continence: Bowel: yes Bladder: yes Urinary Catheter: None Colostomy/Ileostomy/Ileal Conduit: None Date of Last BM: 10-15-22 Intake/Output Summary (Last 24 hours) at 10/16/2022 0804 Last data filed at 10/15/2022 1145 Gross per 24 hour Intake 300 ml Output -- Net 300 ml I/O last 3 completed shifts: In: 500 (10.7 mL/kg) [P.O.:500] Out: 275 (5.9 mL/kg) [Urine:275 (0.2 mL/kg/hr)] Weight: 46.8 kg Safety Concerns: at risk for falls Impairments/Disabilities: none Nutrition Therapy: Current Nutrition Therapy: Oral diet: general Routes of Feeding: oral Liquids: thin liquids Daily Fluid Restriction: no Last Modified Barium Swallow with Video (Video Swallowing Test): not done Treatments at the Time of Hospital Discharge: Respiratory Treatments: na Oxygen Therapy: is on oxygen at 4 L/min per nasal cannula. Ventilator: No ventilator support Rehab Therapies: physical therapy and occupational therapy Weight Bearing Status/Restrictions: no restriction Other Medical Equipment (for information only, NOT a DME order): none Other Treatments: na Patient's personal belongings (please select all that are sent with patient): none RN SIGNATURE: MANAGEMENT/SOCIAL WORK SECTION Inpatient Status Date: Readmission Risk Assessment Score: @READMISSIONRISKDETAILS@ Discharging to Facility/ Agency Name: [facility] Address: [address], [place] [address] Dialysis Facility (if applicable) Name: Address: Dialysis Schedule: Phone: Fax: Chuck Wagon Driver/Director Channel signature: ICIAN SECTION Prognosis: good Condition at Discharge: stable Rehab Potential (if transferring to Rehab): good Recommended Labs or Other Treatments After Discharge: continue prn Bowel regime Physician Certification: I certify the above information and transfer of Katherine Judge is necessary for the continuing treatment of the diagnosis listed and that she requires fdc facility for less than 30 days. Update Admission H&P: No change in H&P PHYSICIAN SIGNATURE: documented in this encounter [facility] 10-16-2022 Note Formatting of this n ote might be different from the original. Dc to [facility] this afternoon at 2:00. [facility] to transport. Ambulance transport form completed. [facility] messaged [facility] with the dc time.Spoke with patients son to discuss dc arrangements and pear picker time. Report number provided to the bedside nurse. [facility] 10-16-2022 Miscellaneous Notes Dc to [facility] this afternoon at 2:00. [facility] to transport. Ambulance transport form completed. [facility] messaged [facility] with the dc time.Spoke with patients son to discuss dc arrangements and pear picker time. Report number provided to the bedside nurse. Patient Choice Patient Name: KATHERINE JUDGE Date of : 1935 All Providers Sent Referral Name: [facility] Phone: [phone] Address: [address] [place] [address] Name: [facility] Phone: [phone] Address: [facility] [place] [address] Name: [facility], [facility] Address: [address] [place] [address] Discharge med list transmitted to [facility] via [facility] per TCC request. 7000 was entered into [employer] for the SNF- Facility is aware. Images from the original note were not included. Care Management Progress Note Pt has discharge order. Pt to transfer to [facility]. STRATEGY PLANNING CONSULTANT notified to complete 7000 & to send discharge paperwork. TELEVISION INSPECTOR notified to set up transport. [facility] notified [facility] discharge. Discharge Milestones and Delays Expected Date/Time: 10/16/2022 Morning Disposition: Retirement Facility Transport status: No current request Discharge Milestones Completed Place discharge order Complete med reconciliation Case mgmt discharge readiness Expected Discharge History Expected Date/Time Set By Reviewed At 10/16/2022 Morning Eder Monterroso MD 10/16/2022 8:14 AM 10/16/2022 Joy Longo RN 10/15/2022 2:43 PM 10/15/2022 BRANDON Alvarez 10/14/2022 9:51 AM 10/13/2022 Celeste Oneal PA-C 10/10/2022 8:36 PM 10/13/2022 Celeste Oneal PA-C 10/10/2022 5:32 PM Length of Stay (Days): 6 GMLOS: 2.6 Spoke with Lesley at [facility] & they can accept pt on 10/16. Notified pt & she asked TCC to follow up with her son. Notified son & he is agreeable.Notified attending, RN & TELEVISION INSPECTOR via secure chat. Referral placed to SNF- [facility] sent to [facility] via [facility]port per TCC request. Await review and response regarding ability to accept. TCC notified. Received call from pt son & they would like referral to [facility]. STRATEGY PLANNING CONSULTANT tasked to make referral. Images from the original note were not included. Care Management Progress Note Pt remains on 2E due to abd pain-improving. Constipation-resolved. Follow up CXR for moderate to large pleural effusions. Met with pt to discuss SNF choices. Pt choices are [facility]. Notified STRATEGY PLANNING CONSULTANT to make referrals. Await response from SNF choices. Pt does not need insurance approval. Discharge Milestones and Delays Expected Date/Time: 10/15/[address] discharge order Complete med reconciliation Case mgmt discharge readiness Clinical Stability Diagnsotic Workup Expected Discharge History Expected Date/Time Set By Reviewed At 10/15/2022 BRANDON Alvarez 10/14/2022 9:51 AM 10/13/2022 Celeste Oneal PA-C 10/10/2022 8:36 PM 10/13/2022 Celeste Oneal PA-C 10/10/2022 5:32 PM Length of Stay (Days): 5 GMLOS: 2.6 Referral placed to [facility] via [facility] per TCC request. Await review and response regarding ability to accept. TCC notified. Care Managment Initial Assessment Date: 10/14/2022 Patient Name: Katherine Judge : 1935 Patient Information Source of Information: Patient Cognition/Language: WFL - Within Functional Limits Permission given to speak with patient billing representative/caregiver as indicated: Yes (Ganga Judge, son, ) Confirmation of Payer with patient/family: Yes Payer Name: Medicare : No (Spouse is a [place]. Made referral to [facility]) Confirmation of Primary Care Physician: Primary Caregiver: Self If assistance needed, confirmed caregiver ready, willing and able to care for patient at discharge: Confirmed with: Living Arrangements Current Residence: Apartment Number of Floors 1 Number of Entry Steps: (No steps) Bed/Bath Levels: Both first floor Facility: Facility Name: Plan to Return: Lives with: Spouse/significant other Support Systems: Spouse/significant other, Children Activities of Daily Living Ambulation: Independent Bathing/Dressing: Independent Elimination/Continence/Toileting: Independent Feeding: Independent Who Assists with Activities of Daily Living: Self Care Instrumental Activities of Daily Living Prescription Coverage: Yes Pharmacy Used: [facility] [place] Medication Management: Independent Transportation/Shopping: Independent Transportation Mode: Car Needs Assistance with Transportation at Discharge: No Meal Preparation: Independent Laundry/Cleaning: Independent Finances/Bill Paying: Independent Communication: Independent Types of Care Services/Equipment Utilized Care Services: Dialysis Type: NA Durable Medical Equipment: Cane, Rollator, Shower Seat Patient's Goal/Discharge Plan Patient expects to be discharged to: D: Home with HHC vs SNF Discharge Planning Actions: Continue to follow Patient's Choice Rights and [employer] and Collaborative Relationships Disclosed as Indicated for Post-Acute Care: Yes (Served Medicare Choice list) Interdisciplinary Team Engagement: PT/OT, Home Health Care Social Work Referral for: Additional Information: Chart reviewed. Patient admitted to [facility] for treatment of Proctocolitis. Full liquid diet. PT/OT recommends SNF. Met with patient at bedside. Explained role. She is very pleasant. 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 Reports her son is helpful and lives 20 minutes away. Independent with adls. She does not drive. +PCP, +RX cov, +DME. Discussed SNF. Patient interested. But, wants to discuss with son first. Served Medicare Choice listing. No insurance authorization required to admit to SNF. DC plan: TBD Home with Home care vs SNF Tasked RAGINI perez to follow Remy Whitney RN The patient is Moderately Stable - Low risk of patient condition declining or worsening The patient's goals for the shift include get rid of this pain The clinical goals for the shift include maintain safety, manage pain Over the shift, the patient did not make progress toward the following goals. Barriers to progression include constipation. Recommendations to address these barriers include encourage fluids . The patient is Moderately Stable - Low risk of patient condition declining or worsening The patient's goals for the shift include get rid of this pain The clinical goals for the shift include maintain safety, manage pain Over the shift, the patient did not make progress toward the following goals. Barriers to progression include acute illness. Recommendations to address these barriers include continue current care plan. documented in this encounter [facility] 10-16-2022 Note Formatting of this n ote might be different from the original. Patient Choice Patient Name: KATHERINE JUDGE Date of : 1935 All Providers Sent Referral Name: [facility] Phone: [phone] Address: [address] [place] [address] Name: [employer] [facility] Phone: [phone] Address: [address] [place], [place] [id number] Name: [facility], [facility] Address: [address] [place], [place] [id number] [facility] 10-16-2022 Note Care Management Prog ress Note Pt has discharge order. Pt to transfer to [facility]. STRATEGY PLANNING CONSULTANT notified to complete 7000 & to send discharge paperwork. TELEVISION INSPECTOR notified to set up transport. [facility] notified of discharge. Discharge Milestones and Delays Expected Date/Time: 10/16/2022 Morning Disposition: Retirement Facility Transport status: No current request Discharge Milestones Completed Place discharge order Complete med reconciliation Case mgmt discharge readiness Expected Discharge History Expected Date/Time Set By Reviewed At 10/16/2022 Morning Eder Monterroso MD 10/16/2022 8:14 AM 10/16/2022 Joy Longo RN 10/15/2022 2:43 PM 10/15/2022 BRANDON Alvarez 10/14/2022 9:51 AM 10/13/2022 Celeste Oneal PA-C 10/10/2022 8:36 PM 10/13/2022 Celeste Oneal PA-C 10/10/2022 5:32 PM Length of Stay (Days): 6 GMLOS: 2.6 [facility] 10-16-2022 Note Formatting of this n ote might be different from the original. Discharge med list transmitted to [facility] via Careport per TCC request. [address] [facility] for the SNF- Facility is aware. T [facility] 10-16-2022 Note Formatting of this n ote is different from the original. Images from the original note were not included. Care Management Progress Note Pt has discharge order. Pt to transfer to [facility]. [facility] notified to complete 7000 & to send discharge paperwork. TELEVISION INSPECTOR notified to set up transport. [facility] notified of discharge. Discharge Milestones and Delays Expected Date/Time: 10/16/2022 Morning Disposition: Retirement Facility Transport status: No current request Discharge Milestones Completed Place discharge order Complete med reconciliation Case mgmt discharge readiness Expected Discharge History Expected Date/Time Set By Reviewed At 10/16/2022 Morning Eder Monterroso MD 10/16/2022 8:14 AM 10/16/2022 Joy Longo RN 10/15/2022 2:43 PM 10/15/2022 BRANDON Alvarez 10/14/2022 9:51 AM 10/13/2022 Celeste Oneal PA-C 10/10/2022 8:36 PM 10/13/2022 Celeste Oneal PA-C 10/10/2022 5:32 PM Length of Stay (Days): 6 GMLOS: 2.6 [facility] 10-16-2022 Hospital course Narrative Discharge Summary Katherine Judge : 1935 ADMIT DATE: 10/10/2022 DISCHARGE DATE: 10/16/2022 PRIMARY CARE PHYSICIAN: Saida Gardiner VISIT STATUS: Admission CODE STATUS: Full Code DISCHARGE DIAGNOSES: Principal Problem: Proctocolitis Acute intractable abdominal pain. Constipation. Suspected proctocolitis-ruled out. Leukocytosis. Bibasilar opacities of the lungs. Moderate to large layering pleural effusions with atelectasis. History of: Coronary artery disease. Depression. HOSPITAL COURSE: Abdominal pain is improving. GI evaluated the patient-abdominal pain could be secondary to constipation Constipation resolved, patient is having good bowel movements. As patient is complaining of diarrhea with multiple episodes since morning, discontinued scheduled MiraLAX and Senokot. Changed to as needed MiraLAX. Discussed with infectious disease, patient finished 5 days of meropenem antibiotics discontinued. Pneumonia work-up is so far negative continue to monitor off antibiotics Continue to wean oxygen. chest x-ray shows chr finding, currently pt on RA, saturating well Follow up labs at baseline PT OT evaluated the patient recommended fdc facility. Discharged in stable condition CONSULTANTS: GI General appearance: No apparent distress, appears stated age and cooperative with exam, elderly thin female in NAD Respiratory: CTA BL Cardiovascular: Regular rate and rhythm with no murmur Abdomen: Soft, abdominal tenderness improving., not distended Skin: Skin color, texture, turgor normal. No rashes or lesions. Distal pulses intact in BL LE, no edema in BL LE. Neurologic: grossly non-focal. DISCHARGE MEDICATIONS: Medication List START taking these medications polyethylene glycol (PEG) 3350 17 g packet Commonly known as: Miralax Take 17 g by mouth 2 times daily as needed (constipation). simethicone 80 MG chewable tablet Commonly known as: Mylicon Chew 1 tablet (80 mg) every 4 hours as needed for flatulence for up to 10 days. CONTINUE taking these medications acetaminophen 500 MG tablet Commonly known as: Tylenol atorvastatin 10 MG tablet Commonly known as: Lipitor azelastine 0.1 % nasal spray Commonly known as: Astelin buPROPion XL 150 MG 24 hr tablet Commonly known as: Wellbutrin XL calcium carbonate 1250 (500 Ca) MG tablet Commonly known as: Os-Ramiro cetirizine 10 MG tablet Commonly known as: ZyrTEC clopidogrel 75 MG tablet Commonly known as: Plavix dicyclomine 10 MG capsule Commonly known as: Bentyl doxazosin 2 MG tablet Commonly known as: Cardura fluticasone 50 MCG/ACT nasal spray Commonly known as: Flonase furosemide 20 MG tablet Commonly known as: Lasix gabapentin 600 MG tablet Commonly known as: Neurontin isosorbide mononitrate ER 60 MG 24 hr tablet Commonly known as: Imdur metoprolol tartrate 50 MG tablet Commonly known as: Lopressor mirtazapine 30 MG tablet Commonly known as: Remeron montelukast 10 MG tablet Commonly known as: Singulair multivitamin tablet nitroglycerin 0.4 MG SL tablet Commonly known as: Nitrostat pantoprazole 40 MG EC tablet Commonly known as: ProtoNix potassium chloride CR 20 MEQ ER tablet Commonly known as: Klor-Con M20 STOP taking these medications tiZANidine 2 MG tablet Commonly known as: Zanaflex Where to Get Your Medications These medications were sent to [facility] [address] [place] [address] [place] [id number] Hours: Thursday to Thursday 10 am to 6 pm polyethylene glycol (PEG) 3350 17 g packet simethicone 80 MG chewable tablet DIET: Adult diet Regular; Low Fiber ACTIVITY: Up with assist COMPLEXITY OF FOLLOW UP: [] Moderate Complexity: follow up within 7-14 calendar days (37686) [] Severe Complexity: follow up within 7 calendar days (41100) FOLLOW UP TESTING, PENDING RESULTS OR REFERRALS AT TRANSITIONAL CARE VISIT: [] Yes [] No DISPOSITION: Skilled Facility Follow up with No follow-up provider specified. INSTRUCTIONS TO MA/SW: Please call patient on day after discharge (must document patient contacted within 2 business days of discharge). FOLLOW UP QUESTIONS FOR MA/SW: 1. Did you get medications filled and taking them as instructed from discharge? 2. Are you following your discharge instructions from your hospital stay? 3. Please confirm patient is scheduled for a follow up appointment within the above time frame. DISCHARGE TIME: > 30 minutes SIGNED: Eder Monterroso MD 10/16/2022, 8:14 AM documented in this encounter [facility] 10-15-2022 Note Hospitalist Progress Note 10/15/2022 [phone]: Please secure chat me for patient care issues. [phone]: Please secure chat [facility] night Hospitalist for any issues. Subjective: Admit Date: 10/10/2022 PCP: Saida Gardiner Room#: B2-259/B2-259 A Interval History: Patient is lying on the bed, abdominal pain continues to improve. Denies any nausea or vomiting. Tolerating p.o. diet well. Diarrhea also improved. No other significant overnight issues. Adult diet Regular; Low Fiber @[id number]@ 24HR INTAKE/OUTPUT: Intake/Output Summary (Last 24 hours) at 10/15/2022 1614 Last data filed at 10/15/2022 1145 Gross per 24 hour Intake 500 ml Output 275 ml Net 225 ml Past Medical History: Past Medical History: Diagnosis Date CAD (coronary artery disease) Hypothyroidism Ischemic colitis (HCC) LABS: CBC: Recent Labs 10/13/2230710/14/2214310/15/22434 WBC 7.8 6.3 7.1 RBC 2.88* 3.05* 3.18* HGB 9.8* 10.4* 10.8* HCT 29.3* 31.0* 32.4* MCV 101.4* 101.5* 101.6* RDW 13.8 13.4 13.6 PLT 201 213 223 BMP: Recent Labs 10/13/2230710/14/2214310/15/22434 NA 138 139 140 K 4.5 4.2 4.2 CL 110* 108* 103 CO2 28 33* 35* BUN 20* 15 11 CREATININE 0.90 0.71 0.61 GLUCOSE 95 92 106* CALCIUM 8.2* 8.0* 8.3* ANIONGAP 1* -1* 1* LIVER PROFILE:No results for input(s): AST, ALT, BILITOT, ALKPHOS, PROT in the last 72 hours. No lab exists for component: LABALBU PT/INR: No results for input(s): PROTIME, INR in the last 72 hours. CARDIAC ENZYMES: No results for input(s): TROPONINI in the last 72 hours. Procalcitonin: No results found for: PROCAL COVID-19 PCR: No results for input(s): COVID19 in the last 72 hours. Objective: Vitals: BP (!) 143/75 (BP Location: Right arm, Patient Position: Lying) Comment: RN notified Pulse 82 Temp 36.8 ?C (98.3 ?F) (Temporal) Resp 16 Ht 5' (1.524 m) Wt 105 lb 8 oz (47.9 kg) SpO2 95% BMI 20.60 kg/m? Pulse Ox: SpO2 Av.5 % Min: 94 % Max: 95 % Physical Exam General appearance: No apparent distress, appears stated age and cooperative with exam, elderly thin female in NAD Respiratory: CTA BL Cardiovascular: Regular rate and rhythm with no murmur Abdomen: Soft, abdominal tenderness improving., not distended Skin: Skin color, texture, turgor normal. No rashes or lesions. Distal pulses intact in BL LE, no edema in BL LE. Neurologic: grossly non-focal. Medications: atorvastatin, 10 mg, Oral, Daily azelastine, 1 spray, Each Nostril, BID buPROPion XL, 150 mg, Oral, Daily cetirizine, 10 mg, Oral, Daily clopidogrel, 75 mg, Oral, Once per day on Thu doxazosin, 2 mg, Oral, Nightly enoxaparin, 40 mg, SubCUTAneous, Daily gabapentin, 600 mg, Oral, BID isosorbide mononitrate ER, 60 mg, Oral, Daily metoprolol tartrate, 50 mg, Oral, BID mirtazapine, 30 mg, Oral, Nightly montelukast, 10 mg, Oral, Nightly potassium chloride CR, 20 mEq, Oral, Daily therapeutic multivitamin-minerals, 1 tablet, Oral, Daily Assessment Acute intractable abdominal pain. Constipation. Suspected proctocolitis-ruled out. Leukocytosis. Bibasilar opacities of the lungs. Moderate to large layering pleural effusions with atelectasis. History of: Coronary artery disease. Depression. Medical Decision Making Abdominal pain is improving. GI evaluated the patient-abdominal pain could be secondary to constipation Constipation resolved, patient is having good bowel movements. As patient is complaining of diarrhea with multiple episodes since morning, discontinued scheduled MiraLAX and Senokot. Changed to as needed MiraLAX. Discussed with infectious disease, patient finished 5 days of meropenem antibiotics discontinued. Pneumonia work-up is so far negative continue to monitor off antibiotics Continue to wean oxygen. Given her moderate to large pleural effusions follow-up chest x-ray ordered for tomorrow. Follow-up CBC BMP ordered. PT OT evaluated the patient recommended fdc facility. -am labs, replace lytes prn -increase activity -DVT prophylaxis: [] Lovenox [] Heparin [] SCDs [x] Encourage ambulation [] Already on Anticoagulation Anticipated Discharge - Date - tomorrow - Location -fdc facility - Pending the following -clinical improvement/placement Total time spent (which include face to face and non face to face encounters) : 25 minutes Toxic drug monitoring/narrow therapeutic index drug monitoring : # Drug name : # Route administered : # Method of monitoring : Extended Emergency Contact Information Primary Emergency Contact: Ganga Judge Mobile Relation: Son Preferred language: Sudanese 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 No Eder Monterroso MD Division of Hospitalist Medicine [employer] [facility] PAGER: [employer] [facility] 10-15-2022 Note Formatting of this n ote might be different from the original. Spoke with Lesley at [facility] & they can accept pt on 10/16. Notified pt & she asked TCC to follow up with her son. Notified son & he is agreeable.Notified attending, RN & TELEVISION INSPECTOR via secure chat. [facility] 10-15-2022 Note Referral placed to [facility] sent to [facility] via Careport per TCC request. Await review and response regarding ability to accept. TCC notified. [facility] 10-15-2022 Note Received call from p t son & they would like referral to [facility]. STRATEGY PLANNING CONSULTANT tasked to make referral. [facility] 10-15-2022 Note Progress Note SUBJECTIVE: No acute events overnight. Abdominal pain improving. On liquid diet, wanting to eat something more substantial. Liquid BM this am. Medications @MEDCMED@ OBJECTIVE VITALS: BP (!) 143/75 (BP Location: Right arm, Patient Position: Lying) Comment: RN notified Pulse 82 Temp 36.8 ?C (98.3 ?F) (Temporal) Resp 16 Ht 1.524 m (5') Wt 47.9 kg (105 lb 8 oz) SpO2 95% BMI 20.60 kg/m? TEMPERATURE: Current - Temp: 36.8 ?C (98.3 ?F); Max - Temp Av ?C (98.6 ?F) Min: 36.8 ?C (98.3 ?F) Max: 37.1 ?C (98.8 ?F) RESPIRATIONS RANGE: Resp Av Min: 16 Max: 16 PULSE RANGE: Pulse Av Min: 82 Max: 82 BLOOD PRESSURE RANGE: Systolic (24hrs), Av , Min:136 , Max:143 ; Diastolic (24hrs), Av, Min:65, Max:75 PULSE OXIMETRY RANGE: SpO2 Av.5 % Min: 94 % Max: 95 % 24HR INTAKE/OUTPUT: Intake/Output Summary (Last 24 hours) at 10/15/2022 1109 Last data filed at 10/15/2022 0600 Gross per 24 hour Intake -- Output 275 ml Net -275 ml HEENT: MMM, sclera anicteric CVS: RRR, s1, s2, no mrg Lungs: CTA B/L, no RRW Abd: Soft, mild left-sided abdominal tenderness/mild distention, +BS, No guarding/rebound, no HSM, Data Recent blood work, radiologic study and endoscopic study were reviewed with the patient. CBC: Recent Labs 10/13/22 0308 10/14/22 0144 10/15/22 0435 WBC 7.8 6.3 7.1 HGB 9.8* 10.4* 10.8* HCT 29.3* 31.0* 32.4* PLT 201 213 223 HEPATIC: No results for input(s): AST, ALT, BILITOT, ALKPHOS in the last 72 hours. No lab exists for component: ALB LIPASE/AMYLASE: No results for input(s): AMYLASE, LIPASE in the last 72 hours. LACTATE: No lab exists for component: LACTA BNP: No results for input(s): BNP in the last 72 hours. INR: No results for input(s): INR in the last 72 hours. ASSESSMENT AND PLAN Abdominal pain: Improving with BMs. Likely related to constipation. Some nonspecific wall thickening and an area of obstipation which is likely related. Rule out any underlying mild ischemic versus infectious process. Constipation: Responding to laxatives - advance diet to regular diet today - start bentyl 10mg QID PRN for abdominal cramping - continue laxatives PRN OK to discharge either later today/tomorrow based on abdominal discomfort and tolerating diet [facility] 10-15-2022 Note Care Management Prog ress Note Pt remains on 2E due to abd pain-improving. Constipation-resolved. Follow up CXR for moderate to large pleural effusions. Met with pt to discuss SNF choices. Pt choices are [facility]. Notified STRATEGY PLANNING CONSULTANT to make referrals. Await response from SNF choices. Pt does not need insurance approval. Discharge Milestones and Delays Expected Date/Time: 10/15/[address] discharge order Complete med reconciliation Case mgmt discharge readiness Clinical Stability Diagnsotic Workup Expected Discharge History Expected Date/Time Set By Reviewed At 10/15/2022 BRANDON Alvarez 10/14/2022 9:51 AM 10/13/2022 Celeste Oneal PA-C 10/10/2022 8:36 PM 10/13/2022 Celeste Oneal PA-C 10/10/2022 5:32 PM Length of Stay (Days): 5 GMLOS: 2.6 [facility] 10-15-2022 Note Referral placed to [facility] via Careport per TCC request. Await review and response regarding ability to accept. TCC notified. [facility] 10-15-2022 Note Formatting of this n ote might be different from the original. Referral placed to [facility] sent to [facility] via Careport per TCC request. Await review and response regarding ability to accept. TCC notified. [employer] [facility] 10-15-2022 Note Formatting of this n ote might be different from the original. Received call from pt son & they would like referral to [facility]. STRATEGY PLANNING CONSULTANT tasked to make referral. [facility] 10-15-2022 Note Formatting of this n ote is different from the original. Images from the original note were not included. Care Management Progress Note Pt remains on 2E due to abd pain-improving. Constipation-resolved. Follow up CXR for moderate to large pleural effusions. Met with pt to discuss SNF choices. Pt choices are [facility]. Notified STRATEGY PLANNING CONSULTANT to make referrals. Await response from SNF choices. Pt does not need insurance approval. Discharge Milestones and Delays Expected Date/Time: 10/15/[address] discharge order Complete med reconciliation Case mgmt discharge readiness Clinical Stability Diagnsotic Workup Expected Discharge History Expected Date/Time Set By Reviewed At 10/15/2022 BRANDON Alavrez 10/14/2022 9:51 AM 10/13/2022 Celeste Oneal PA-C 10/10/2022 8:36 PM 10/13/2022 Celeste Oneal PA-C 10/10/2022 5:32 PM Length of Stay (Days): 5 GMLOS: 2.6 [facility] 10-15-2022 Note Formatting of this n ote might be different from the original. Referral placed to SNF- [facility] via Careport per TCC request. Await review and response regarding ability to accept. TCC notified. [facility] [employer] 10-14-2022 Note Formatting of this n ote might be different from the original. Care Managment Initial Assessment Date: 10/14/2022 Patient Name: Katherine Judge : 1935 Patient Information Source of Information: Patient Cognition/Language: WFL - Within Functional Limits Permission given to speak with patient billing representative/caregiver as indicated: Yes (Ganga Judge, son, ) Confirmation of Payer with patient/family: Yes Payer Name: Medicare : No (Spouse is a [place]. Made referral to [facility]) Confirmation of Primary Care Physician: Primary Caregiver: Self If assistance needed, confirmed caregiver ready, willing and able to care for patient at discharge: Confirmed with: Living Arrangements Current Residence: Apartment Number of Floors 1 Number of Entry Steps: (No steps) Bed/Bath Levels: Both first floor Facility: Facility Name: Plan to Return: Lives with: Spouse/significant other Support Systems: Spouse/significant other, Children Activities of Daily Living Ambulation: Independent Bathing/Dressing: Independent Elimination/Continence/Toileting: Independent Feeding: Independent Who Assists with Activities of Daily Living: Self Care Instrumental Activities of Daily Living Prescription Coverage: Yes Pharmacy Used: [facility] in [place] Medication Management: Independent Transportation/Shopping: Independent Transportation Mode: Car Needs Assistance with Transportation at Discharge: No Meal Preparation: Independent Laundry/Cleaning: Independent Finances/Bill Paying: Independent Communication: Independent Types of Care Services/Equipment Utilized Care Services: Dialysis Type: NA Durable Medical Equipment: Cane, Rollator, Shower Seat Patient's Goal/Discharge Plan Patient expects to be discharged to: TBD: Home with HHC vs SNF Discharge Planning Actions: Continue to follow Patient's Choice Rights and [employer] and Collaborative Relationships Disclosed as Indicated for Post-Acute Care: Yes (Served Medicare Choice list) Interdisciplinary Team Engagement: PT/OT, Home Health Care Social Work Referral for: Additional Information: Chart reviewed. Patient admitted to [facility] for treatment of Proctocolitis. Full liquid diet. PT/OT recommends SNF. Met with patient at bedside. Explained role. She is very pleasant. 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 Reports her son is helpful and lives 20 minutes away. Independent with adls. She does not drive. +PCP, +RX cov, +DME. Discussed SNF. Patient interested. But, wants to discuss with son first. Served Medicare Choice listing. No insurance authorization required to admit to SNF. DC plan: TBD Home with Home care vs SNF Tasked RAGINI perez to follow Remy Whitney RN [facility] 10-14-2022 Note Hospitalist Progress Note 10/14/[id number]: Please secure chat me for patient care issues. [phone]: Please secure chat [facility] Hospitalist for any issues. Subjective: Admit Date: 10/10/2022 PCP: Saida Gardiner Room#: [id number]/[id number] A Interval History: Patient is lying on the bed, abdominal pain is better. Complaining of multiple episodes of diarrhea. Denies any nausea or vomiting. No other significant overnight issues. Adult diet Full liquid @[id number]@ 24HR INTAKE/OUTPUT: No intake or output data in the 24 hours ending 10/14/22 1342 Past Medical History: Past Medical History: Diagnosis Date CAD (coronary artery disease) Hypothyroidism Ischemic colitis (HCC) LABS: CBC: Recent Labs 10/12/2233 10/13/228 10/14/22 0144 WBC 12.3* 7.8 6.3 RBC 2.91* 2.88* 3.05* HGB 10.1* 9.8* 10.4* HCT 30.0* 29.3* 31.0* MCV 103.0* 101.4* 101.5* RDW 13.7 13.8 13.4 PLT 205 201 213 BMP: Recent Labs 10/12/22 0610/13/2230710/14/22 014 NA 141 138 139 K 4.4 4.5 4.2 CL 110* 110* 108* CO2 25 28 33* BUN 21* 20* 15 CREATININE 0.97 0.90 0.71 GLUCOSE 107* 95 92 CALCIUM 7.9* 8.2* 8.0* ANIONGAP 6 1* -1* LIVER PROFILE:No results for input(s): AST, ALT, BILITOT, ALKPHOS, PROT in the last 72 hours. No lab exists for component: LABALBU PT/INR: No results for input(s): PROTIME, INR in the last 72 hours. CARDIAC ENZYMES: No results for input(s): TROPONINI in the last 72 hours. Procalcitonin: No results found for: PROCAL COVID-19 PCR: No results for input(s): COVID19 in the last 72 hours. Objective: Vitals: BP (!) 149/80 (BP Location: Left arm, Patient Position: Lying) Pulse 78 Temp 37.1 ?C (98.8 ?F) (Temporal) Resp 17 Ht 5' (1.524 m) Wt 105 lb 8 oz (47.9 kg) SpO2 91% BMI 20.60 kg/m? Pulse Ox: SpO2 Av.5 % Min: 91 % Max: 94 % Physical Exam General appearance: No apparent distress, appears stated age and cooperative with exam, elderly thin female in NAD Respiratory: CTA BL Cardiovascular: Regular rate and rhythm with no murmur Abdomen: Soft, abdominal tenderness improving., not distended Skin: Skin color, texture, turgor normal. No rashes or lesions. Distal pulses intact in BL LE, no edema in BL LE. Neurologic: grossly non-focal. Medications: atorvastatin, 10 mg, Oral, Daily azelastine, 1 spray, Each Nostril, BID buPROPion XL, 150 mg, Oral, Daily cetirizine, 10 mg, Oral, Daily clopidogrel, 75 mg, Oral, Once per day on Thu doxazosin, 2 mg, Oral, Nightly enoxaparin, 40 mg, SubCUTAneous, Daily gabapentin, 600 mg, Oral, BID isosorbide mononitrate ER, 60 mg, Oral, Daily metoprolol tartrate, 50 mg, Oral, BID mirtazapine, 30 mg, Oral, Nightly montelukast, 10 mg, Oral, Nightly potassium chloride CR, 20 mEq, Oral, Daily therapeutic multivitamin-minerals, 1 tablet, Oral, Daily Assessment Acute intractable abdominal pain. Constipation. Suspected proctocolitis-ruled out. Leukocytosis. Bibasilar opacities of the lungs. Moderate to large layering pleural effusions with atelectasis. History of: Coronary artery disease. Depression. Medical Decision Making Abdominal pain is improving. GI evaluated the patient-abdominal pain could be secondary to constipation Constipation resolved, patient is having good bowel movements. As patient is complaining of diarrhea with multiple episodes since morning, discontinued scheduled MiraLAX and Senokot. Changed to as needed MiraLAX. Discussed with infectious disease, patient finished 5 days of meropenem antibiotics discontinued. Pneumonia work-up is so far negative continue to monitor off antibiotics Continue to wean oxygen. Given her moderate to large pleural effusions follow-up chest x-ray ordered for tomorrow. Follow-up CBC BMP ordered. PT OT evaluated the patient recommended fdc facility. -am labs, replace lytes prn -increase activity -DVT prophylaxis: [] Lovenox [] Heparin [] SCDs [x] Encourage ambulation [] Already on Anticoagulation Anticipated Discharge - Date -1 to 2 days - Location -fdc facility - Pending the following -clinical improvement/placement Total time spent (which include face to face and non face to face encounters) : 25 minutes Toxic drug monitoring/narrow therapeutic index drug monitoring : # Drug name : # Route administered : # Method of monitoring : Extended Emergency Contact Information Primary Emergency Contact: Ganga Judge Mobile Relation: Son Preferred language: Sudanese 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 No Eder Monterroso MD Division of Hospitalist Medicine [facility] PAGER: [employer] [facility] 10-13-2022 Note GASTROENTEROLOGY PRO FRANK NOTE Patient: Katherine Judge : 1935 Primary Care Physician: Saida Gardiner History: Having multiple liquid BMs with solid balls of stool. No reported bleeding. Still with some abdominal pain but has improved. Denies any associated nausea or vomiting. No F/C/S Physical Exam: Gen: AAOx3 in NAD BP (!) 154/77 (BP Location: Right arm, Patient Position: Lying) Pulse 79 Temp 36.9 ?C (98.5 ?F) (Temporal) Resp 16 Ht 5' (1.524 m) Wt 108 lb 12.8 oz (49.4 kg) SpO2 94% BMI 21.25 kg/m? HEENT: MMM, sclera anicteric CVS: RRR, s1, s2, no mrg Lungs: CTA B/L, no RRW Abd: Soft, mild to moderate left-sided abdominal tenderness/mild distention, +BS, No guarding/rebound, no HSM, Laboratory Data: CBC: Results from last 7 days Lab Units 10/13/22 0308 10/12/22 0633 10/11/22 0331 WBC AUTO 10*3/uL 7.8 12.3* 15.1* HEMOGLOBIN g/dL 9.8* 10.1* 11.8 HEMATOCRIT % 29.3* 30.0* 36.6 PLATELETS AUTO 10*3/uL 201 205 195 CMP: Recent Labs 10/12/22 0633 10/13/22 0308 NA 141 138 K 4.4 4.5 CL 110* 110* CO2 25 28 BUN 21* 20* CREATININE 0.97 0.90 GLUCOSE 107* 95 CALCIUM 7.9* 8.2* HEPATIC: Results from last 7 days Lab Units 10/11/22 0331 10/10/22 1454 ALK PHOS U/L 85 88 BILIRUBIN TOTAL mg/dL 0.8 1.0 BILIRUBIN DIRECT mg/dL -- 0.0 PROTEIN TOTAL g/dL 6.0* 7.0 ALT U/L 12 14 AST U/L 21 24 Assessment: Abdominal pain: Improving with BMs. Likely related to constipation. Some nonspecific wall thickening and an area of obstipation which is likely related. Rule out any underlying mild ischemic versus infectious process. Constipation: Responding to laxatives Plan: Continue present management Check abdominal x-ray in the a.m. Continue liquid diet with supplements for now. Hope to advance diet soon once abdominal pain improves. (Comment: Please note this report has been produced using speech recognition software and may contain errors related to that system including errors in grammar, punctuation, and spelling, as well as words and phrases that may be inappropriate. If there are any questions or concerns please feel free to contact the dictating provider for clarification.) Electronically signed by Ron Vines DO 10/13/2022 2:25 PM [facility] 10-13-2022 Note Hospitalist Progress Note 10/13/2022 [phone]: Please page me ([phone]) for patient care issues. [phone]: Please page [facility] Hospitalist for any issues. Subjective: Admit Date: 10/10/2022 PCP: Saida Gardiner Room#: [id number]/[id number] A Interval History: No overnight issues. Denies chest pain,, nausea, vomiting, diarrhea, , fevers, or chills. Constipation and abdominal pain persists, patient with several bowel movements in the interim. Mild cough and SOB persists. Adult diet Full liquid 24HR INTAKE/OUTPUT: Intake/Output Summary (Last 24 hours) at 10/13/2022 1248 Last data filed at 10/13/2022 0900 Gross per 24 hour Intake 1231 ml Output 300 ml Net 931 ml Past Medical History: Past Medical History: Diagnosis Date CAD (coronary artery disease) Hypothyroidism Ischemic colitis (HCC) LABS: CBC: Recent Labs 10/11/22 03310/12/22 0633 10/13/22 0308 WBC 15.1* 12.3* 7.8 RBC 3.59* 2.91* 2.88* HGB 11.8 10.1* 9.8* HCT 36.6 30.0* 29.3* MCV 102.1* 103.0* 101.4* RDW 14.1 13.7 13.8 PLT 195 205 201 BMP: Recent Labs 10/11/22 0331 10/12/22 0633 10/13/22 0308 NA 140 141 138 K 4.0 4.4 4.5 CL 107 110* 110* CO2 28 25 28 BUN 17 21* 20* CREATININE 0.72 0.97 0.90 GLUCOSE 86 107* 95 CALCIUM 8.2* 7.9* 8.2* ANIONGAP 4 6 1* LIVER PROFILE: Recent Labs 10/10/22 1454 10/11/22 0331 AST 24 21 ALT 14 12 BILITOT 1.0 0.8 ALKPHOS 88 85 PROT 7.0 6.0* PT/INR: No results for input(s): PROTIME, INR in the last 72 hours. CARDIAC ENZYMES: No results for input(s): TROPONINI in the last 72 hours. Procalcitonin: Lab Results Component Value Date PROCAL 0.14 (H) 10/11/2022 COVID-19 PCR: No results for input(s): COVID19 in the last 72 hours. Objective: Vitals: BP (!) 154/77 (BP Location: Right arm, Patient Position: Lying) Pulse 79 Temp 36.9 ?C (98.5 ?F) (Temporal) Resp 16 Ht 5' (1.524 m) Wt 108 lb 12.8 oz (49.4 kg) SpO2 94% BMI 21.25 kg/m? Pulse Ox: SpO2 Av.3 % Min: 87 % Max: 95 % Supplemental O2: O2 Flow Rate (L/min): 2 L/min General appearance: No apparent distress, appears stated age and cooperative with exam, elderly thin female in NAD Respiratory: CTA BL Cardiovascular: Regular rate and rhythm with no murmur Abdomen: Soft, abdominal tenderness improving., not distended Skin: Skin color, texture, turgor normal. No rashes or lesions. Distal pulses intact in BL LE, no edema in BL LE. Neurologic: grossly non-focal. Medications: sodium chloride, 100 mL/hr, Last Rate: 100 mL/hr (10/13/22 0400) atorvastatin, 10 mg, Oral, Daily azelastine, 1 spray, Each Nostril, BID buPROPion XL, 150 mg, Oral, Daily cetirizine, 10 mg, Oral, Daily clopidogrel, 75 mg, Oral, Once per day on Thu doxazosin, 2 mg, Oral, Nightly enoxaparin, 40 mg, SubCUTAneous, Daily gabapentin, 600 mg, Oral, BID isosorbide mononitrate ER, 60 mg, Oral, Daily meropenem, 1,000 mg, IntraVENous, q8h metoprolol tartrate, 50 mg, Oral, BID mirtazapine, 30 mg, Oral, Nightly montelukast, 10 mg, Oral, Nightly polyethylene glycol (PEG) 3350, 17 g, Oral, BID potassium chloride CR, 20 mEq, Oral, Daily senna-docusate sodium, 2 tablet, Oral, Daily therapeutic multivitamin-minerals, 1 tablet, Oral, Daily Assessment Acute abdominal pain Constipation Abnormal CT abdomen and pelvis Proctocolitis, ruled out GI deemed abnormal CT to be related to constipation. Bowel regimen Completed IVF course Diet as tolerated Cough, PNA Leukocytosis Acute hypoxia In setting of PNA Continue with IV abx Wean O2 as tolerated PNA workup negative Sputum cultures pending Breathing treatments CAD Depression Home meds resumed as indicated Medical Decision Making 10/11/22: diet as tolerated. PNA workup pending. Sputum culture pending. Continue broad coverage abx. Discussed with GI, abnormal CT findings likely 2/2 constipation. Proctocolitis ruled out by GI. Bowel regimen started, continue with IVF. 10/12/22: will continue IVF 1 more day, likely discontinue tomorrow. Abdomen pain improving but still present. She has had several good bowel movements on bowel regimen. Liquid diet per GI, advance as tolerated. Continue broad coverage abx for PNA. Stop IV vancomycin today. PT/OT eval and treat 10/13/22: patient admitted for intractable abdominal pain in setting of possible proctocolitis on imaging, however Per GI on consult, likely inflammatory changes 2/2 significant constipation. Patient on bowel regimen with good bowel movements. Patient also being treated with abx and breathing treatments for PNA and acute hypoxia. PNA workup so far largely negative. PT/OT eval recommending SNF on discharge. Repeat CXR pending as patient remains hypoxic and unable to wean down. -am labs, replace lytes prn -increase activity -resume home medications as indicated -DVT prophylaxis: [x] Lovenox [] Heparin [] SCDs [x] Encourage ambulation [] Already on Anticoa (more content not included)... [facility] 10-12-2022 Note Hospitalist Progress Note 10/12/2022 [phone]: Please page me ([phone]) for patient care issues. [phone]: Please page [facility] Hospitalist for any issues. Subjective: Admit Date: 10/10/2022 PCP: Saida Gardiner Room#: [id number]/[id number] A Interval History: No overnight issues. Denies chest pain,, nausea, vomiting, diarrhea, , fevers, or chills. Constipation and abdominal pain improved, patient with several bowel movements in the interim. Mild cough and SOB persists. Adult diet Full liquid 24HR INTAKE/OUTPUT: Intake/Output Summary (Last 24 hours) at 10/12/2022 1209 Last data filed at 10/12/2022 0916 Gross per 24 hour Intake 769 ml Output -- Net 769 ml Past Medical History: Past Medical History: Diagnosis Date CAD (coronary artery disease) Hypothyroidism Ischemic colitis (CMS/HCC) LABS: CBC: Recent Labs 10/10/22 1454 10/11/22 0331 10/12/22 0633 WBC 16.9* 15.1* 12.3* RBC 3.65* 3.59* 2.91* HGB 12.6 11.8 10.1* HCT 37.3 36.6 30.0* MCV 102.0* 102.1* 103.0* RDW 14.2 14.1 13.7 PLT 217 195 205 BMP: Recent Labs 10/10/22 1454 10/11/22 0331 10/12/22 0633 NA 142 140 141 K 4.1 4.0 4.4 CL 103 107 110* CO2 30 28 25 BUN 22* 17 21* CREATININE 0.94 0.72 0.97 GLUCOSE 110* 86 107* CALCIUM 8.9 8.2* 7.9* ANIONGAP 8 4 6 LIVER PROFILE: Recent Labs 10/10/22 1454 10/11/22 033 AST 24 21 ALT 14 12 BILITOT 1.0 0.8 ALKPHOS 88 85 PROT 7.0 6.0* PT/INR: No results for input(s): PROTIME, INR in the last 72 hours. CARDIAC ENZYMES: No results for input(s): TROPONINI in the last 72 hours. Procalcitonin: Lab Results Component Value Date PROCAL 0.14 (H) 10/11/2022 COVID-19 PCR: No results for input(s): COVID19 in the last 72 hours. Objective: Vitals: BP 108/55 (BP Location: Right arm, Patient Position: Lying) Pulse 74 Temp 36.8 ?C (98.2 ?F) (Temporal) Resp 18 Ht 5' (1.524 m) Wt 108 lb 12.8 oz (49.4 kg) SpO2 92% BMI 21.25 kg/m? Pulse Ox: SpO2 Av.5 % Min: 92 % Max: 95 % Supplemental O2: O2 Flow Rate (L/min): 2 L/min General appearance: No apparent distress, appears stated age and cooperative with exam, elderly thin female in NAD Respiratory: CTA BL Cardiovascular: Regular rate and rhythm with no murmur Abdomen: Soft, abdominal tenderness improving., not distended Skin: Skin color, texture, turgor normal. No rashes or lesions. Distal pulses intact in BL LE, no edema in BL LE. Neurologic: grossly non-focal. Medications: sodium chloride, 100 mL/hr, Last Rate: 100 mL/hr (10/11/22 1014) atorvastatin, 10 mg, Oral, Daily azelastine, 1 spray, Each Nostril, BID buPROPion XL, 150 mg, Oral, Daily cetirizine, 10 mg, Oral, Daily [START ON 10/13/2022] clopidogrel, 75 mg, Oral, Once per day on Thu doxazosin, 2 mg, Oral, Nightly enoxaparin, 40 mg, SubCUTAneous, Daily gabapentin, 600 mg, Oral, BID isosorbide mononitrate ER, 60 mg, Oral, Daily meropenem, 1,000 mg, IntraVENous, q8h metoprolol tartrate, 50 mg, Oral, BID mirtazapine, 30 mg, Oral, Nightly montelukast, 10 mg, Oral, Nightly polyethylene glycol (PEG) 3350, 17 g, Oral, BID potassium chloride CR, 20 mEq, Oral, Daily senna-docusate sodium, 2 tablet, Oral, Daily therapeutic multivitamin-minerals, 1 tablet, Oral, Daily vancomycin, 750 mg, IntraVENous, q24h Assessment Acute abdominal pain Constipation Abnormal CT abdomen and pelvis Proctocolitis, ruled out GI deemed abnormal CT to be related to constipation. Bowel regimen Continue IV hydration Diet as tolerated Cough, PNA Leukocytosis Continue with IV abx Wean O2 as tolerated PNA workup negative Sputum cultures pending Breathing treatments CAD Depression Home meds resumed as indicated Medical Decision Making 10/11/22: diet as tolerated. PNA workup pending. Sputum culture pending. Continue broad coverage abx. Discussed with GI, abnormal CT findings likely 2/2 constipation. Proctocolitis ruled out by GI. Bowel regimen started, continue with IVF. 10/12/22: will continue IVF 1 more day, likely discontinue tomorrow. Abdomen pain improving but still present. She has had several good bowel movements on bowel regimen. Liquid diet per GI, advance as tolerated. Continue broad coverage abx for PNA. Stop IV vancomycin today. PT/OT eval and treat -am labs, replace lytes prn -increase activity -resume home medications as indicated -DVT prophylaxis: [x] Lovenox [] Heparin [] SCDs [x] Encourage ambulation [] Already on Anticoagulation Anticipated Discharge - Date - 10/13 vs 10/14 - Location - Home - Pending the following - improvement in abdominal pain, regular Bowel movements. PNA workup, wean O2. PT/OT eval and treat Toxic drug monitoring/narrow therapeutic index drug monitoring : # Drug name : # Route administered : # Method of monitoring : Extended Emergency Contact Information Primary Emergency Contact: Ganga Judge Mobile Relation: Son Pre (more content not included)... [facility] 10-12-2022 Note GASTROENTEROLOGY PRO FRANK NOTE Patient: Katherine Judge : 1935 Primary Care Physician: Saida Gardiner History: Liquid BMs yesterday. Abdominal pain improving. Tolerating liquid diet without difficulty. Denies any N/V Physical Exam: Gen: AAOx3 in NAD BP 108/55 (BP Location: Right arm, Patient Position: Lying) Pulse 74 Temp 36.8 ?C (98.2 ?F) (Temporal) Resp 18 Ht 5' (1.524 m) Wt 108 lb 12.8 oz (49.4 kg) SpO2 92% BMI 21.25 kg/m? HEENT: MMM, sclera anicteric CVS: RRR, s1, s2 Abd: Soft, mild lower abdominal tenderness to deep palpation/ND, +BS, No guarding/rebound, Laboratory Data: CBC: Results from last 7 days Lab Units 10/12/22 0633 10/11/22 0331 10/10/22 1454 WBC AUTO 10*3/uL 12.3* 15.1* 16.9* HEMOGLOBIN g/dL 10.1* 11.8 12.6 HEMATOCRIT % 30.0* 36.6 37.3 PLATELETS AUTO 10*3/uL 205 195 217 CMP: Recent Labs 10/11/22 0331 10/12/22 0633 NA 140 141 K 4.0 4.4 CL 107 110* CO2 28 25 BUN 17 21* CREATININE 0.72 0.97 GLUCOSE 86 107* CALCIUM 8.2* 7.9* HEPATIC: Results from last 7 days Lab Units 10/11/22 0331 10/10/22 1454 ALK PHOS U/L 85 88 BILIRUBIN TOTAL mg/dL 0.8 1.0 BILIRUBIN DIRECT mg/dL -- 0.0 PROTEIN TOTAL g/dL 6.0* 7.0 ALT U/L 12 14 AST U/L 21 24 LIPASE/AMYLASE: Recent Labs 10/10/22 1454 LIPASE 25 Assessment: Abdominal pain: Improving with BMs. Likely related to constipation. Some nonspecific wall thickening and an area of obstipation which is likely related. Rule out any underlying mild ischemic versus infectious process. Constipation Plan: Continue with bowel regimen Liquid diet with supplements. Advance diet as tolerated Could consider outpatient colonoscopy if recurrent symptoms and patient is agreeable. Patient is on Plavix. (Comment: Please note this report has been produced using speech recognition software and may contain errors related to that system including errors in grammar, punctuation, and spelling, as well as words and phrases that may be inappropriate. If there are any questions or concerns please feel free to contact the dictating provider for clarification.) Electronically signed by Ron Vines DO 10/12/2022 10:20 AM [facility] 10-12-2022 Consult note Formatting of th is note might be different from the original. Vancomycin therapy has been discontinued by Dr. Tobar on 10-12-22. Thank you for the consult. Pharmacy signing off for vancomycin dosing. Marilu Whitaker RPh, Date: 10/12/22 Time: 12:14 PM [facility] 10-12-2022 Consult note Formatting of th is note might be different from the original. Vancomycin therapy has been discontinued by Dr. Tobar on 10-12-22. Thank you for the consult. Pharmacy signing off for vancomycin dosing. Marilu Whitaker RPh, Date: 10/12/22 Time: 12:14 PM Associated Order(s): IP CONSULT TO GI Images from the original note were not included. GASTROENTEROLOGY CONSULTATION REASON FOR CONSULT: The patient was seen in consultation at the request of Dr. Lucio re: Procotocolitis HISTORY OF PRESENT ILLNESS: The patient is a 87 y.o. female with past medical history as listed below who presents with progressively worsening abdominal pain over the past week. Patient states had a bowel movement yesterday however she has been constipated. Prior history of bowel obstructions. No associated N/V, F/C/S. CT A/P in the ED suggestive of a large stool burden in the distal colon near the rectosigmoid junction with some associated rectosigmoid wall thickening. Denies any blood in the stool in the way of melena or hematochezia. No BMs since admission. PAST MEDICAL HISTORY: Past Medical History: Diagnosis Date CAD (coronary artery disease) Hypothyroidism Ischemic colitis (CMS/HCC) PAST SURGICAL HISTORY: Past Surgical History: Procedure Laterality Date OTHER SURGICAL HISTORY she reports bowel resections in the past SOCIAL HISTORY: TOBACCO: Social History Tobacco Use Smoking Status Never Smokeless Tobacco Never ETOH: Alcohol Use: Not on file DRUGS: Social History Substance and Sexual Activity Drug Use Never FAMILY HISTORY: No family history on file. MEDICATIONS PRIOR TO ADMISSION: Current Outpatient Medications Medication Instructions acetaminophen (TYLENOL) 500 mg, Oral atorvastatin (LIPITOR) 10 mg, Oral, Daily azelastine (Astelin) 0.1 % nasal spray 1 spray, Each Nostril, 2 times daily, Use in each nostril as directed buPROPion XL (WELLBUTRIN XL) 150 mg, Oral, Daily, Do not crush, chew, or split. calcium carbonate (Os-Ramiro) 1250 (500 Ca) MG tablet Oral, Daily cetirizine (ZyrTEC) 10 MG tablet Oral clopidogrel (PLAVIX) 75 mg, Oral, Daily, Thu ONLY dicyclomine (BENTYL) 10 mg, Oral, 4 times daily doxazosin (CARDURA) 2 mg, Oral, Nightly fluticasone (Flonase) 50 MCG/ACT nasal spray 1 spray, Each Nostril, Daily, Shake gently. Before first use, prime pump. After use, clean tip and replace cap. furosemide (Lasix) 20 MG tablet Oral gabapentin (Neurontin) 600 MG tablet Oral, 2 times daily isosorbide mononitrate ER (IMDUR) 60 mg, Oral, Daily, Do not crush or chew. metoprolol tartrate (LOPRESSOR) 50 mg, Oral, 2 times daily mirtazapine (REMERON) 30 mg, Oral, Nightly montelukast (Singulair) 10 MG tablet Oral multivitamin (Theragran) tablet 1 tablet, Oral, Daily nitroglycerin (NITROSTAT) 0.4 mg, SubLINGual, Every 5 min PRN pantoprazole (PROTONIX) 40 mg, Oral, Daily before breakfast, Do not crush, chew, or split. potassium chloride CR (Klor-Con M20) 20 MEQ ER tablet 20 mEq, Oral, Daily, Do not crush or chew. tiZANidine (ZANAFLEX) 4 mg, Oral, Every 6 hours PRN CURRENT MEDICATIONS: Current Facility-Administered Medications: acetaminophen (Tylenol) tablet 650 mg, 650 mg, Oral, q6h PRN OR acetaminophen (Tylenol) suppository 650 mg, 650 mg, Rectal, q6h PRN, Akil Lucio MD atorvastatin (Lipitor) tablet 10 mg, 10 mg, Oral, Daily, Ranjeet Tobar DO, 10 mg at 10/11/22953 azelastine (Astelin) 0.1 % nasal spray 1 spray, 1 spray, Each Nostril, BID, Ranjeet Tobar DO buPROPion XL (Wellbutrin XL) 24 hr tablet 150 mg, 150 mg, Oral, Daily, Ranjeet Tobar DO, 150 mg at 10/11/22 1000 cetirizine (ZyrTEC) tablet 10 mg, 10 mg, Oral, Daily, Ranjeet Tobar DO, 10 mg at 10/11/22953 [START ON 10/13/2022] clopidogrel (Plavix) tablet 75 mg, 75 mg, Oral, Once per day on Thu, Ranjeet Tobar DO doxazosin (Cardura) tablet 2 mg, 2 mg, Oral, Nightly, Ranjeet Tobar DO enoxaparin (Lovenox) syringe 40 mg, 40 mg, SubCUTAneous, Daily, Akil Lucio MD, 40 mg at 10/11/22953 gabapentin (Neurontin) tablet 600 mg, 600 mg, Oral, BID, Ranjeet Tobar DO, 600 mg at 10/11/22953 HYDROmorphone (Dilaudid) injection 0.5 mg, 0.5 mg, IntraVENous, q3h PRN, Akil Lucio MD, 0.5 mg at 10/11/22951 ipratropium-albuterol (Duo-Neb) 0.5-2.5 mg/3 mL nebulizer solution 3 mL, 3 mL, Nebulization, q4h PRN, Akil Lucio MD isosorbide mononitrate ER (Imdur) 24 hr tablet 60 mg, 60 mg, Oral, Daily, Ranjeet Tobar DO, 60 mg at 10/11/22 0954 meropenem (Merrem) 1,000 mg in sodium chloride 0.9 % 100 mL IVPB, 1,000 mg, IntraVENous, q8h, Akil Lucio MD, Stopped at 10/11/22 0242 metoprolol tartrate (Lopressor) tablet 50 mg, 50 mg, Oral, BID, Ranjeet Tobar DO, 50 mg at 10/11/22 0954 mirtazapine (Remeron) tablet 30 mg, 30 mg, Oral, Nightly, Ranjeet Tobar DO montelukast (Singulair) tablet 10 mg, 10 mg, Oral, Nightly, Ranjeet Tobar DO ondansetron ODT (Zofran-ODT) disintegrating tablet 4 mg, 4 mg, Oral, q8h PRN OR ondansetron (Zofran) injection 4 mg, 4 mg, IntraVENous, q6h PRN, Akil Lucio MD polyethylene glycol (PEG) 3350 (Miralax) packet 17 g, 17 g, Oral, Daily PRN, Akil Lucio MD potassium chloride CR (Klor-Con M20) ER tablet 20 mEq, 20 mEq, Oral, Daily, Ranjeet Tobar DO, 20 mEq at 10/11/22 1001 senna-docusate sodium (Senokot-S) 8.6-50 MG tablet 2 tablet, 2 tablet, Oral, Daily, Ranjeet Tobar DO, 2 tablet at 10/11/22 0954 sodium chloride 0.9 % infusion, 100 mL/hr, IntraVENous, Continuous, Ranjeet Tobar DO, Last Rate: 100 mL/hr at 10/11/22 1014, 100 mL/hr at 10/11/22 1014 therapeutic multivitamin-minerals (Theragran-M) tablet, 1 tablet, Oral, Daily, Ranjeet Vogt, DO vancomycin (Vancocin) 1,000 mg in sodium chloride 0.9 % 250 mL IVPB, 1,000 mg, IntraVENous, q24h, Akil Lucio MD ALLERGIES: Allergies Allergen Reactions Fish Allergy Anaphylaxis Cephalexin Hives Other reaction(s): Unknown Clarithromycin Other reaction(s): Unknown Clindamycin Unknown Doxazosin Unknown Erythromycin Base Other reaction(s): Unknown Eszopiclone Unknown Lorazepam Other reaction(s): Unknown Nsaids Other reaction(s): Unknown Penicillins Hives Other reaction(s): Unknown Rofecoxib Unknown Other reaction(s): Intolerance Salicylates GI bleeding and Unknown Other reaction(s): Intolerance Other reaction(s): Intolerance Temazepam Other reaction(s): Unknown RESTORIL Tetracyclines & Related Hives Other reaction(s): Unknown Other reaction(s): Unknown Trazodone Unknown Lincomycin Nausea And Vomiting, Rash and Unknown REVIEW OF SYMPTOMS: Ten-point review of symptoms was noted and reviewed in the chart. PHYSICAL EXAM VS:vBP (!) 146/76 Pulse 86 Temp 36.9 C (98.4 F) (Temporal) Resp 16 Ht 5' (1.524 m) Wt 104 lb 9.6 oz (47.4 kg) SpO2 95% BMI 20.43 kg/m Body mass index is 20.43 kg/m . GENERAL: Frail, pleasant and NAD. HEENT: Scleral anicteric. Oropharhynx clear with no erythema or exudate. CV: RRR, NL S1/S2, no murmurs. LUNGS: CTA b/l. No W/R/R. ABDOMEN: ,soft, diffusely tender to moderate palpation and non-distended, + BS. No hepatosplenomegaly. No mass felt. No rebound or guarding. No hernia. EXT: No C/C/E. NEURO: A&O x 3, No obvious focal deficits. PSYCH: Normal affect and speech. LABS AND IMAGING: Recent blood work and relevant radiologic and endoscopic studies were reviewed and discussed with the patient. Results from last 7 days Lab Units 10/11/22 0331 10/10/22 1454 WBC AUTO 10*3/uL 15.1* 16.9* HEMOGLOBIN g/dL 11.8 12.6 HEMATOCRIT % 36.6 37.3 PLATELETS AUTO 10*3/uL 195 217 Results from last 7 days Lab Units 10/11/22 0331 10/10/22 1454 SODIUM mmol/L 140 142 POTASSIUM mmol/L 4.0 4.1 CHLORIDE mmol/L 107 103 CO2 mmol/L 28 30 BUN mg/dL 17 22* CREATININE mg/dL 0.72 0.94 CALCIUM mg/dL 8.2* 8.9 PROTEIN TOTAL g/dL 6.0* 7.0 BILIRUBIN TOTAL mg/dL 0.8 1.0 ALK PHOS U/L 85 88 ALT U/L 12 14 AST U/L 21 24 GLUCOSE mg/dL 86 110* IMAGING: Exam Date/Time: 10/10/2022 16:52 Procedure: CT ABDOMEN PELVIS W CONTRAST Ordering Provider: ONEAL RACHEL Reason For Exam: Nausea/vomiting CLINICAL HISTORY: Nausea/vomiting COMPARISON: 10/13/2020 Technique: Axial CT images were obtained of the abdomen and pelvis after the uneventful IV administration of 75 mL of Isovue 370 IV contrast. Images were reformatted in coronal and sagittal projections. Dose reduction was employed with automated exposure control. FINDINGS: Chest base: Partially visualized large hiatal hernia. Bibasilar atelectasis in the lungs. Liver/Biliary system: No focal hepatic masses. Cholelithiasis with mild intrahepatic and extrahepatic biliary dilatation. The common bile duct measures up to 1 cm in diameter, similar to 2020. Spleen: Not enlarged. Pancreas: Pancreatic tail extends into the hiatal hernia sac. Adrenal glands: No significant abnormality. Kidneys: No hydronephrosis or renal calculi are seen. 1.6 cm fluid attenuation cyst arising from the posterior right mid kidney. Bowel: Large stool burden in the distal colon, particularly near the rectosigmoid junction with associated rectosigmoid wall thickening. Postsurgical changes of the proximal colon. There is diastases of the rectus muscles with partial extension of the transverse colon into a wide necked ventral hernia. Mesentery/Intraperitoneum: No intraperitoneal free fluid or air is seen. Mesentery is normal in appearance. Lymph nodes: A few borderline enlarged lymph nodes are seen along the rectosigmoid junction. Vasculature: The abdominal aorta is normal in caliber with extensive atherosclerotic calcification. Pelvic organs: No masses or other significant abnormalities seen. Soft tissues and Osseous structures: No evidence of fracture. No suspicious osseous lesions. Multilevel degenerative changes and unchanged chronic compression deformities of the lower thoracic and lumbar spine with areas of moderate central canal and neural foraminal narrowing. IMPRESSION: 1. Large stool burden in the distal colon, particularly near the rectosigmoid junction with associated rectosigmoid wall thickening. These findings may relate to constipation with associated proctocolitis. Follow-up colonoscopy recommended to exclude underlying neoplasm if not recently performed. 2. A few borderline enlarged lymph nodes along the rectosigmoid junction are nonspecific, may be reactive. 3.Cholelithiasis with mild intrahepatic and extrahepatic biliary dilatation, similar to 2020. Consider correlation with laboratory evaluation for evidence of obstructive pathology. ASSESSMENT: Abdominal pain: Likely related to constipation. Some nonspecific wall thickening and an area of obstipation which is likely related. Rule out any underlying mild ischemic versus infectious process. Constipation Abnormal CT A/P: Suspect rectosigmoid thickening related to constipation. Chronically mildly dilated bile ducts. Normal LFTs. Likely secondary to postcholecystectomy state. PLAN: Continue liquid diet for now as tolerated Bowel regimen with laxatives and enemas Serial abdominal exams Consider outpatient colonoscopy pending the clinical course if patient is agreeable (Comment: Please note this report has been produced using speech recognition software and may contain errors related to that system including errors in grammar, punctuation, and spelling, as well as words and phrases that may be inappropriate. If there are any questions or concerns please feel free to contact the dictating provider for clarification.) Electronically signed by Ron Vines DO 10/11/2022 11:11 AM Pharmacy Note Vancomycin Consult Non-FIXED INCOME DIRECTOR Katherine Judge is a 87 y.o. year old female ordered vancomycin for IAI; consult from Dr. Lucio to manage therapy. 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 Gout 10/14/2020 Fish allergy, Cephalexin, Clarithromycin, Clindamycin, Doxazosin, Erythromycin base, Eszopiclone, Lorazepam, Nsaids, Penicillins, Rofecoxib, Salicylates, Temazepam, Tetracyclines & related, Trazodone, and Lincomycin CREATININE Date Value Ref Range Status 10/10/2022 0.94 0.52 - 1.04 mg/dL Final 10/22/2020 0.69 0.52 - 1.25 mg/dL Final UREA NITROGEN Date Value Ref Range Status 10/10/2022 22 (H) 7 - 17 mg/dL Final Auto WBC Date Value Ref Range Status 10/10/2022 16.9 (H) 3.6 - 10.7 10*3/uL Final Ht Readings from Last 1 Encounters: No data found for Ht Wt Readings from Last 1 Encounters: No data found for Wt Plan: Will initiate vancomycin 750 mg IV every 24 hours based on predicted AUC of 464 mg/L.hr . Goal AUC is 400-600 mg/L.hr. Random level will be scheduled for 10/11 at 0500. Thank you for the consult. Will continue to follow. documented in this encounter [facility] 10-11-2022 Plan of care note The patient is Moderately Stable - Low risk of patient condition declining or worsening The patient's goals for the shift include get rid of this pain The clinical goals for the shift include maintain safety, manage pain Over the shift, the patient did not make progress toward the following goals. Barriers to progression include constipation. Recommendations to address these barriers include encourage fluids . [facility] 10-11-2022 Note Hospitalist Progress Note 10/11/[id number]: Please page me ([phone]) for patient care issues. [phone]: Please page [facility] Hospitalist for any issues. Subjective: Admit Date: 10/10/2022 PCP: Saida Gardiner Room#: B2-259/B2-259 A Interval History: No overnight issues. Denies chest pain, sob, nausea, vomiting, diarrhea, , fevers, or chills. Constipation and abdominal pain reported. Mild cough, however sputum production has decreased. Adult diet Clear liquid 24HR INTAKE/OUTPUT: Intake/Output Summary (Last 24 hours) at 10/11/2022 1222 Last data filed at 10/11/2022 1116 Gross per 24 hour Intake 790.83 ml Output -- Net 790.83 ml Past Medical History: Past Medical History: Diagnosis Date CAD (coronary artery disease) Hypothyroidism Ischemic colitis (CMS/HCC) LABS: CBC: Recent Labs 10/10/22 1454 10/11/22 0331 WBC 16.9* 15.1* RBC 3.65* 3.59* HGB 12.6 11.8 HCT 37.3 36.6 MCV 102.0* 102.1* RDW 14.2 14.1 PLT 217 195 BMP: Recent Labs 10/10/22 1454 10/11/22 0331 NA 142 140 K 4.1 4.0 CL 103 107 CO2 30 28 BUN 22* 17 CREATININE 0.94 0.72 GLUCOSE 110* 86 CALCIUM 8.9 8.2* ANIONGAP 8 4 LIVER PROFILE: Recent Labs 10/10/22 1454 10/11/22 0331 AST 24 21 ALT 14 12 BILITOT 1.0 0.8 ALKPHOS 88 85 PROT 7.0 6.0* PT/INR: No results for input(s): PROTIME, INR in the last 72 hours. CARDIAC ENZYMES: No results for input(s): TROPONINI in the last 72 hours. Procalcitonin: No results found for: PROCAL COVID-19 PCR: No results for input(s): COVID19 in the last 72 hours. Objective: Vitals: BP 135/62 Pulse 96 Temp 37.2 ?C (99 ?F) (Temporal) Resp 18 Ht 5' (1.524 m) Wt 104 lb 9.6 oz (47.4 kg) SpO2 96% BMI 20.43 kg/m? Pulse Ox: SpO2 Av.4 % Min: 91 % Max: 96 % Supplemental O2: O2 Flow Rate (L/min): 2 L/min General appearance: No apparent distress, appears stated age and cooperative with exam, elderly thin female in NAD Respiratory: CTA BL Cardiovascular: Regular rate and rhythm with no murmur Abdomen: Soft, RLQ tenderness, not distended Skin: Skin color, texture, turgor normal. No rashes or lesions. Distal pulses intact in BL LE, no edema in BL LE. Neurologic: grossly non-focal. Medications: sodium chloride, 100 mL/hr, Last Rate: 100 mL/hr (10/11/22 1014) atorvastatin, 10 mg, Oral, Daily azelastine, 1 spray, Each Nostril, BID bisacodyl, 10 mg, Rectal, Once buPROPion XL, 150 mg, Oral, Daily cetirizine, 10 mg, Oral, Daily [START ON 10/13/2022] clopidogrel, 75 mg, Oral, Once per day on Thu doxazosin, 2 mg, Oral, Nightly enoxaparin, 40 mg, SubCUTAneous, Daily gabapentin, 600 mg, Oral, BID isosorbide mononitrate ER, 60 mg, Oral, Daily meropenem, 1,000 mg, IntraVENous, q8h metoprolol tartrate, 50 mg, Oral, BID mirtazapine, 30 mg, Oral, Nightly montelukast, 10 mg, Oral, Nightly potassium chloride CR, 20 mEq, Oral, Daily senna-docusate sodium, 2 tablet, Oral, Daily therapeutic multivitamin-minerals, 1 tablet, Oral, Daily vancomycin, 1,000 mg, IntraVENous, q24h Assessment Acute abdominal pain Constipation Abnormal CT abdomen and pelvis Proctocolitis, ruled out GI deemed abnormal CT to be related to constipation. Bowel regimen Continue IV hydration Diet as tolerated Cough, PNA Leukocytosis Continue with IV abx Wean O2 as tolerated PNA workup pending Sputum cultures Breathing treatments CAD Depression Home meds resumed as indicated Medical Decision Making 10/11/22: diet as tolerated. PNA workup pending. Sputum culture pending. Continue broad coverage abx. Discussed with GI, abnormal CT findings likely 2/2 constipation. Proctocolitis ruled out by GI. Bowel regimen started, continue with IVF. -am labs, replace lytes prn -increase activity -resume home medications as indicated -DVT prophylaxis: [x] Lovenox [] Heparin [] SCDs [x] Encourage ambulation [] Already on Anticoagulation Anticipated Discharge - Date - 10/13/22 - Location - Home - Pending the following - improvement in abdominal pain, regular Bowel movements. PNA workup. 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 No Ranjeet Tobar DO Division of Hospitalist Medicine Inpatient Medical Services[place] [place]: Brady lynn [facility] 10-11-2022 Note GASTROENTEROLOGY CON SULTATION REASON FOR CONSULT: The patient was seen in consultation at the request of Dr. Lucio re: Procotocolitis HISTORY OF PRESENT ILLNESS: The patient is a 87 y.o. female with past medical history as listed below who presents with progressively worsening abdominal pain over the past week. Patient states had a bowel movement yesterday however she has been constipated. Prior history of bowel obstructions. No associated N/V, F/C/S. CT A/P in the ED suggestive of a large stool burden in the distal colon near the rectosigmoid junction with some associated rectosigmoid wall thickening. Denies any blood in the stool in the way of melena or hematochezia. No BMs since admission. PAST MEDICAL HISTORY: Past Medical History: Diagnosis Date CAD (coronary artery disease) Hypothyroidism Ischemic colitis (CMS/HCC) PAST SURGICAL HISTORY: Past Surgical History: Procedure Laterality Date OTHER SURGICAL HISTORY she reports bowel resections in the past SOCIAL HISTORY: TOBACCO: Social History Tobacco Use Smoking Status Never Smokeless Tobacco Never ETOH: Alcohol Use: Not on file DRUGS: Social History Substance and Sexual Activity Drug Use Never FAMILY HISTORY: No family history on file. MEDICATIONS PRIOR TO ADMISSION: Current Outpatient Medications Medication Instructions acetaminophen (TYLENOL) 500 mg, Oral atorvastatin (LIPITOR) 10 mg, Oral, Daily azelastine (Astelin) 0.1 % nasal spray 1 spray, Each Nostril, 2 times daily, Use in each nostril as directed buPROPion XL (WELLBUTRIN XL) 150 mg, Oral, Daily, Do not crush, chew, or split. calcium carbonate (Os-Ramiro) 1250 (500 Ca) MG tablet Oral, Daily cetirizine (ZyrTEC) 10 MG tablet Oral clopidogrel (PLAVIX) 75 mg, Oral, Daily, MON WED FRI ONLY dicyclomine (BENTYL) 10 mg, Oral, 4 times daily doxazosin (CARDURA) 2 mg, Oral, Nightly fluticasone (Flonase) 50 MCG/ACT nasal spray 1 spray, Each Nostril, Daily, Shake gently. Before first use, prime pump. After use, clean tip and replace cap. furosemide (Lasix) 20 MG tablet Oral gabapentin (Neurontin) 600 MG tablet Oral, 2 times daily isosorbide mononitrate ER (IMDUR) 60 mg, Oral, Daily, Do not crush or chew. metoprolol tartrate (LOPRESSOR) 50 mg, Oral, 2 times daily mirtazapine (REMERON) 30 mg, Oral, Nightly montelukast (Singulair) 10 MG tablet Oral multivitamin (Theragran) tablet 1 tablet, Oral, Daily nitroglycerin (NITROSTAT) 0.4 mg, SubLINGual, Every 5 min PRN pantoprazole (PROTONIX) 40 mg, Oral, Daily before breakfast, Do not crush, chew, or split. potassium chloride CR (Klor-Con M20) 20 MEQ ER tablet 20 mEq, Oral, Daily, Do not crush or chew. tiZANidine (ZANAFLEX) 4 mg, Oral, Every 6 hours PRN CURRENT MEDICATIONS: Current Facility-Administered Medications: acetaminophen (Tylenol) tablet 650 mg, 650 mg, Oral, q6h PRN OR acetaminophen (Tylenol) suppository 650 mg, 650 mg, Rectal, q6h PRN, Akil Lucio MD atorvastatin (Lipitor) tablet 10 mg, 10 mg, Oral, Daily, Ranjeet Tobar DO, 10 mg at 10/11/22 0954 azelastine (Astelin) 0.1 % nasal spray 1 spray, 1 spray, Each Nostril, BID, Ranjeet Tobar DO buPROPion XL (Wellbutrin XL) 24 hr tablet 150 mg, 150 mg, Oral, Daily, Ranjeet Tobar DO, 150 mg at 10/11/22 1000 cetirizine (ZyrTEC) tablet 10 mg, 10 mg, Oral, Daily, Ranjeet Tobar DO, 10 mg at 10/11/22 0954 [START ON 10/13/2022] clopidogrel (Plavix) tablet 75 mg, 75 mg, Oral, Once per day on Thu, Ranjeet Tobar DO doxazosin (Cardura) tablet 2 mg, 2 mg, Oral, Nightly, Ranjeet Tobar DO enoxaparin (Lovenox) syringe 40 mg, 40 mg, SubCUTAneous, Daily, Akil Lucio MD, 40 mg at 10/11/22 0954 gabapentin (Neurontin) tablet 600 mg, 600 mg, Oral, BID, Ranjeet Tobar DO, 600 mg at 10/11/22 0954 HYDROmorphone (Dilaudid) injection 0.5 mg, 0.5 mg, IntraVENous, q3h PRN, Akil Lucio MD, 0.5 mg at 10/11/22 0952 ipratropium-albuterol (Duo-Neb) 0.5-2.5 mg/3 mL nebulizer solution 3 mL, 3 mL, Nebulization, q4h PRN, Akil Lucio MD isosorbide mononitrate ER (Imdur) 24 hr tablet 60 mg, 60 mg, Oral, Daily, Ranjeet Tobar DO, 60 mg at 10/11/22 0954 meropenem (Merrem) 1,000 mg in sodium chloride 0.9 % 100 mL IVPB, 1,000 mg, IntraVENous, q8h, Akil Lucio MD, Stopped at 10/11/22 0242 metoprolol tartrate (Lopressor) tablet 50 mg, 50 mg, Oral, BID, Ranjeet Tobar DO, 50 mg at 10/11/22 0954 mirtazapine (Remeron) tablet 30 mg, 30 mg, Oral, Nightly, Ranjeet Tobar DO montelukast (Singulair) tablet 10 mg, 10 mg, Oral, Nightly, Ranjeet Tobar DO ondansetron ODT (Zofran-ODT) disintegrating tablet 4 mg, 4 mg, Oral, q8h PRN OR ondansetron (Zofran) injection 4 mg, 4 mg, IntraVENous, q6h PRN, Akil Lucio MD polyethylene glycol (PEG) 3350 (Miralax) packet 17 g, 17 g, Oral, Daily PRN, kAil Lucio MD potassium chloride CR (Klor-Con M20) ER tablet 20 mEq, 20 mEq, Oral, Daily, Ranjeet Tobar DO, 20 mEq at 10/11/22 1001 se (more content not included)... [facility] 10-11-2022 Consult note Associated Order (s): IP CONSULT TO GI Images from the original note were not included. GASTROENTEROLOGY CONSULTATION REASON FOR CONSULT: The patient was seen in consultation at the request of Dr. Lucio re: Procotocolitis HISTORY OF PRESENT ILLNESS: The patient is a 87 y.o. female with past medical history as listed below who presents with progressively worsening abdominal pain over the past week. Patient states had a bowel movement yesterday however she has been constipated. Prior history of bowel obstructions. No associated N/V, F/C/S. CT A/P in the ED suggestive of a large stool burden in the distal colon near the rectosigmoid junction with some associated rectosigmoid wall thickening. Denies any blood in the stool in the way of melena or hematochezia. No BMs since admission. PAST MEDICAL HISTORY: Past Medical History: Diagnosis Date CAD (coronary artery disease) Hypothyroidism Ischemic colitis (CMS/HCC) PAST SURGICAL HISTORY: Past Surgical History: Procedure Laterality Date OTHER SURGICAL HISTORY she reports bowel resections in the past SOCIAL HISTORY: TOBACCO: Social History Tobacco Use Smoking Status Never Smokeless Tobacco Never ETOH: Alcohol Use: Not on file DRUGS: Social History Substance and Sexual Activity Drug Use Never FAMILY HISTORY: No family history on file. MEDICATIONS PRIOR TO ADMISSION: Current Outpatient Medications Medication Instructions acetaminophen (TYLENOL) 500 mg, Oral atorvastatin (LIPITOR) 10 mg, Oral, Daily azelastine (Astelin) 0.1 % nasal spray 1 spray, Each Nostril, 2 times daily, Use in each nostril as directed buPROPion XL (WELLBUTRIN XL) 150 mg, Oral, Daily, Do not crush, chew, or split. calcium carbonate (Os-Ramiro) 1250 (500 Ca) MG tablet Oral, Daily cetirizine (ZyrTEC) 10 MG tablet Oral clopidogrel (PLAVIX) 75 mg, Oral, Daily, MON WED THU ONLY dicyclomine (BENTYL) 10 mg, Oral, 4 times daily doxazosin (CARDURA) 2 mg, Oral, Nightly fluticasone (Flonase) 50 MCG/ACT nasal spray 1 spray, Each Nostril, Daily, Shake gently. Before first use, prime pump. After use, clean tip and replace cap. furosemide (Lasix) 20 MG tablet Oral gabapentin (Neurontin) 600 MG tablet Oral, 2 times daily isosorbide mononitrate ER (IMDUR) 60 mg, Oral, Daily, Do not crush or chew. metoprolol tartrate (LOPRESSOR) 50 mg, Oral, 2 times daily mirtazapine (REMERON) 30 mg, Oral, Nightly montelukast (Singulair) 10 MG tablet Oral multivitamin (Theragran) tablet 1 tablet, Oral, Daily nitroglycerin (NITROSTAT) 0.4 mg, SubLINGual, Every 5 min PRN pantoprazole (PROTONIX) 40 mg, Oral, Daily before breakfast, Do not crush, chew, or split. potassium chloride CR (Klor-Con M20) 20 MEQ ER tablet 20 mEq, Oral, Daily, Do not crush or chew. tiZANidine (ZANAFLEX) 4 mg, Oral, Every 6 hours PRN CURRENT MEDICATIONS: Current Facility-Administered Medications: acetaminophen (Tylenol) tablet 650 mg, 650 mg, Oral, q6h PRN OR acetaminophen (Tylenol) suppository 650 mg, 650 mg, Rectal, q6h PRN, Akil Lucio MD atorvastatin (Lipitor) tablet 10 mg, 10 mg, Oral, Daily, Ranjeet Tobar DO, 10 mg at 10/11/22 0954 azelastine (Astelin) 0.1 % nasal spray 1 spray, 1 spray, Each Nostril, BID, Ranjeet Tobar DO buPROPion XL (Wellbutrin XL) 24 hr tablet 150 mg, 150 mg, Oral, Daily, Ranjeet Tobar DO, 150 mg at 10/11/22 1000 cetirizine (ZyrTEC) tablet 10 mg, 10 mg, Oral, Daily, Ranjeet Tobar DO, 10 mg at 10/11/22 0954 [START ON 10/13/2022] clopidogrel (Plavix) tablet 75 mg, 75 mg, Oral, Once per day on Thu, Ranjeet Tobar DO doxazosin (Cardura) tablet 2 mg, 2 mg, Oral, Nightly, Ranjeet Tobar DO enoxaparin (Lovenox) syringe 40 mg, 40 mg, SubCUTAneous, Daily, Akil Lucio MD, 40 mg at 10/11/22 0954 gabapentin (Neurontin) tablet 600 mg, 600 mg, Oral, BID, Ranjeet Tobar DO, 600 mg at 10/11/22 0954 HYDROmorphone (Dilaudid) injection 0.5 mg, 0.5 mg, IntraVENous, q3h PRN, Akil Lucio MD, 0.5 mg at 10/11/22 0952 ipratropium-albuterol (Duo-Neb) 0.5-2.5 mg/3 mL nebulizer solution 3 mL, 3 mL, Nebulization, q4h PRN, Akli Lucio MD isosorbide mononitrate ER (Imdur) 24 hr tablet 60 mg, 60 mg, Oral, Daily, Ranjeet Tobar DO, 60 mg at 10/11/22 0954 meropenem (Merrem) 1,000 mg in sodium chloride 0.9 % 100 mL IVPB, 1,000 mg, IntraVENous, q8h, Akil Lucio MD, Stopped at 10/11/22 0242 metoprolol tartrate (Lopressor) tablet 50 mg, 50 mg, Oral, BID, Ranjeet Tobar DO, 50 mg at 10/11/22 0954 mirtazapine (Remeron) tablet 30 mg, 30 mg, Oral, Nightly, Ranjeet Tobar DO montelukast (Singulair) tablet 10 mg, 10 mg, Oral, Nightly, Ranjeet Tobar DO ondansetron ODT (Zofran-ODT) disintegrating tablet 4 mg, 4 mg, Oral, q8h PRN OR ondansetron (Zofran) injection 4 mg, 4 mg, IntraVENous, q6h PRN, Akil Lucio MD polyethylene glycol (PEG) 3350 (Miralax) packet 17 g, 17 g, Oral, Daily PRN, Akil Lucio MD potassium chloride CR (Klor-Con M20) ER tablet 20 mEq, 20 mEq, Oral, Daily, Ranjeet Tobar DO, 20 mEq at 10/11/22 1001 senna-docusate sodium (Senokot-S) 8.6-50 MG tablet 2 tablet, 2 tablet, Oral, Daily, Ranjeet Tobar DO, 2 tablet at 10/11/22 0954 sodium chloride 0.9 % infusion, 100 mL/hr, IntraVENous, Continuous, Ranjeet Tobar DO, Last Rate: 100 mL/hr at 10/11/22 1014, 100 mL/hr at 10/11/22 1014 therapeutic multivitamin-minerals (Theragran-M) tablet, 1 tablet, Oral, Daily, Ranjeet Tobar DO vancomycin (Vancocin) 1,000 mg in sodium chloride 0.9 % 250 mL IVPB, 1,000 mg, IntraVENous, q24h, Akil Lucio MD ALLERGIES: Allergies Allergen Reactions Fish Allergy Anaphylaxis Cephalexin Hives Other reaction(s): Unknown Clarithromycin Other reaction(s): Unknown Clindamycin Unknown Doxazosin Unknown Erythromycin Base Other reaction(s): Unknown Eszopiclone Unknown Lorazepam Other reaction(s): Unknown Nsaids Other reaction(s): Unknown Penicillins Hives Other reaction(s): Unknown Rofecoxib Unknown Other reaction(s): Intolerance Salicylates GI bleeding and Unknown Other reaction(s): Intolerance Other reaction(s): Intolerance Temazepam Other reaction(s): Unknown RESTORIL Tetracyclines & Related Hives Other reaction(s): Unknown Other reaction(s): Unknown Trazodone Unknown Lincomycin Nausea And Vomiting, Rash and Unknown REVIEW OF SYMPTOMS: Ten-point review of symptoms was noted and reviewed in the chart. PHYSICAL EXAM VS:vBP (!) 146/76 Pulse 86 Temp 36.9 C (98.4 F) (Temporal) Resp 16 Ht 5' (1.524 m) Wt 104 lb 9.6 oz (47.4 kg) SpO2 95% BMI 20.43 kg/m Body mass index is 20.43 kg/m . GENERAL: Frail, pleasant and NAD. HEENT: Scleral anicteric. Oropharhynx clear with no erythema or exudate. CV: RRR, NL S1/S2, no murmurs. LUNGS: CTA b/l. No W/R/R. ABDOMEN: ,soft, diffusely tender to moderate palpation and non-distended, + BS. No hepatosplenomegaly. No mass felt. No rebound or guarding. No hernia. EXT: No C/C/E. NEURO: A&O x 3, No obvious focal deficits. PSYCH: Normal affect and speech. LABS AND IMAGING: Recent blood work and relevant radiologic and endoscopic studies were reviewed and discussed with the patient. Results from last 7 days Lab Units 10/11/22 0331 10/10/22 1454 WBC AUTO 10*3/uL 15.1* 16.9* HEMOGLOBIN g/dL 11.8 12.6 HEMATOCRIT % 36.6 37.3 PLATELETS AUTO 10*3/uL 195 217 Results from last 7 days Lab Units 10/11/22 0331 10/10/22 1454 SODIUM mmol/L 140 142 POTASSIUM mmol/L 4.0 4.1 CHLORIDE mmol/L 107 103 CO2 mmol/L 28 30 BUN mg/dL 17 22* CREATININE mg/dL 0.72 0.94 CALCIUM mg/dL 8.2* 8.9 PROTEIN TOTAL g/dL 6.0* 7.0 BILIRUBIN TOTAL mg/dL 0.8 1.0 ALK PHOS U/L 85 88 ALT U/L 12 14 AST U/L 21 24 GLUCOSE mg/dL 86 110* IMAGING: Exam Date/Time: 10/10/2022 16:52 Procedure: CT ABDOMEN PELVIS W CONTRAST Ordering Provider: ONEAL RACHEL Reason For Exam: Nausea/vomiting CLINICAL HISTORY: Nausea/vomiting COMPARISON: 10/13/2020 Technique: Axial CT images were obtained of the abdomen and pelvis after the uneventful IV administration of 75 mL of Isovue 370 IV contrast. Images were reformatted in coronal and sagittal projections. Dose reduction was employed with automated exposure control. FINDINGS: Chest base: Partially visualized large hiatal hernia. Bibasilar atelectasis in the lungs. Liver/Biliary system: No focal hepatic masses. Cholelithiasis with mild intrahepatic and extrahepatic biliary dilatation. The common bile duct measures up to 1 cm in diameter, similar to 2020. Spleen: Not enlarged. Pancreas: Pancreatic tail extends into the hiatal hernia sac. Adrenal glands: No significant abnormality. Kidneys: No hydronephrosis or renal calculi are seen. 1.6 cm fluid attenuation cyst arising from the posterior right mid kidney. Bowel: Large stool burden in the distal colon, particularly near the rectosigmoid junction with associated rectosigmoid wall thickening. Postsurgical changes of the proximal colon. There is diastases of the rectus muscles with partial extension of the transverse colon into a wide necked ventral hernia. Mesentery/Intraperitoneum: No intraperitoneal free fluid or air is seen. Mesentery is normal in appearance. Lymph nodes: A few borderline enlarged lymph nodes are seen along the rectosigmoid junction. Vasculature: The abdominal aorta is normal in caliber with extensive atherosclerotic calcification. Pelvic organs: No masses or other significant abnormalities seen. Soft tissues and Osseous structures: No evidence of fracture. No suspicious osseous lesions. Multilevel degenerative changes and unchanged chronic compression deformities of the lower thoracic and lumbar spine with areas of moderate central canal and neural foraminal narrowing. IMPRESSION: 1. Large stool burden in the distal colon, particularly near the rectosigmoid junction with associated rectosigmoid wall thickening. These findings may relate to constipation with associated proctocolitis. Follow-up colonoscopy recommended to exclude underlying neoplasm if not recently performed. 2. A few borderline enlarged lymph nodes along the rectosigmoid junction are nonspecific, may be reactive. 3.Cholelithiasis with mild intrahepatic and extrahepatic biliary dilatation, similar to 202. Consider correlation with laboratory evaluation for evidence of obstructive pathology. ASSESSMENT: Abdominal pain: Likely related to constipation. Some nonspecific wall thickening and an area of obstipation which is likely related. Rule out any underlying mild ischemic versus infectious process. Constipation Abnormal CT A/P: Suspect rectosigmoid thickening related to constipation. Chronically mildly dilated bile ducts. Normal LFTs. Likely secondary to postcholecystectomy state. PLAN: Continue liquid diet for now as tolerated Bowel regimen with laxatives and enemas Serial abdominal exams Consider outpatient colonoscopy pending the clinical course if patient is agreeable (Comment: Please note this report has been produced using speech recognition software and may contain errors related to that system including errors in grammar, punctuation, and spelling, as well as words and phrases that may be inappropriate. If there are any questions or concerns please feel free to contact the dictating provider for clarification.) Electronically signed by Ron Vines DO 10/11/2022 11:11 AM T [facility] 10-10-2022 Note Attending History an d Physical Admit Date: 10/10/2022 PCP: Saida Gardiner CHIEF COMPLAINT: abdominal pain Reason for Admission: proctocolitis/constipation/hx bowel obstructions History Obtained From: patient/chart HISTORY OF PRESENT ILLNESS: Katherine is a 87 y.o. female with past medical history below who presents with chief complaint listed above. She has had a one week hx of worsening abdominal pain which is achy/crampy in nature. It began on the right side but is now more diffuse across the abdomen. She has had some decreased bowel movements/constipation recently. She also has had a cough productive of thick, yellow sputum that began yesterday. She is requiring some oxygen today. She feels weak. She does had a hx of bowel obstructions in the past. She denies chest pain, sob, nausea, vomiting, diarrhea, constipation, fevers, or chills. Will admit for further evaluation and management. D/w pt Past Medical History: Past Medical History: Diagnosis Date CAD (coronary artery disease) Hypothyroidism Ischemic colitis (CMS/HCC) Past Surgical History: Past Surgical History: Procedure Laterality Date OTHER SURGICAL HISTORY she reports bowel resections in the past Social History: Social History Socioeconomic History Marital status: Spouse name: Not on file Number of children: Not on file Years of education: Not on file Highest education level: Not on file Occupational History Not on file Tobacco Use Smoking status: Never Smokeless tobacco: Never Substance and Sexual Activity Alcohol use: Never Drug use: Never Sexual activity: Not on file Other Topics Concern Not on file Social History Narrative Not on file Social Determinants of Health Financial Resource Strain: Not on file Food Insecurity: Not on file Transportation Needs: Not on file Physical Activity: Not on file Stress: Not on file Social Connections: Not on file Intimate Partner Violence: Not on file Housing Stability: Not on file Family History: No family history on file. Medications Prior to Admission: No current facility-administered medications on file prior to encounter. No current outpatient medications on file prior to encounter. Allergies: Allergies Allergen Reactions Fish Allergy Anaphylaxis Cephalexin Hives Other reaction(s): Unknown Clarithromycin Other reaction(s): Unknown Clindamycin Unknown Doxazosin Unknown Erythromycin Base Other reaction(s): Unknown Eszopiclone Unknown Lorazepam Other reaction(s): Unknown Nsaids Other reaction(s): Unknown Penicillins Hives Other reaction(s): Unknown Rofecoxib Unknown Other reaction(s): Intolerance Salicylates GI bleeding and Unknown Other reaction(s): Intolerance Other reaction(s): Intolerance Temazepam Other reaction(s): Unknown RESTORIL Tetracyclines & Related Hives Other reaction(s): Unknown Other reaction(s): Unknown Trazodone Unknown Lincomycin Nausea And Vomiting, Rash and Unknown REVIEW OF SYSTEMS: As per HPI otherwise 10 system review is unremarkable. Vitals: BP (!) 143/82 Pulse 110 Temp 37.6 ?C (99.7 ?F) (Temporal) Resp 16 SpO2 91% BMI Classification: Overweight (BMI 25.0-29.9) Pulse Ox: SpO2 Av % Min: 91 % Max: 91 % Supplemental O2: PHYSICAL EXAM: Physical Exam Vitals and nursing note reviewed. Constitutional: General: She is not in acute distress. HENT: Head: Normocephalic and atraumatic. Eyes: Extraocular Movements: Extraocular movements intact. Pupils: Pupils are equal, round, and reactive to light. Cardiovascular: Rate and Rhythm: Regular rhythm. Tachycardia present. Pulses: Normal pulses. Pulmonary: Effort: Pulmonary effort is normal. Breath sounds: Normal breath sounds. Abdominal: General: There is distension. Palpations: Abdomen is soft. Tenderness: There is abdominal tenderness. There is no rebound. Musculoskeletal: General: Normal range of motion. Cervical back: Normal range of motion and neck supple. Skin: General: Skin is warm. Neurological: General: No focal deficit present. Mental Status: She is alert and oriented to person, place, and time. Mental status is at baseline. Psychiatric: Mood and Affect: Mood normal. DATA: CBC: Recent Labs 10/10/22 1454 WBC 16.9* RBC 3.65* HGB 12.6 HCT 37.3 MCV 102.0* RDW 14.2 PLT 217 BMP: Recent Labs 10/10/22 1454 NA 142 K 4.1 CL 103 CO2 30 BUN 22* CREATININE 0.94 GLUCOSE 110* CALCIUM 8.9 ANIONGAP 8 LIVER PROFILE: Recent Labs 10/10/22 1454 AST 24 ALT 14 BILITOT 1.0 ALKPHOS 88 PROT 7.0 PT/INR: No results for input(s): PROTIME, INR in the last 72 hours. CARDIAC ENZYMES: No results for input(s): TROPONINI in the last 72 hours. Procalcitonin: No results found for: PROCAL Urine Culture: No results found for this or any previous visit. COVID-19 PCR: No results for input(s): COVID19 in the last 72 hours. (more content not included)... [facility] 10-10-2022 Plan of care note The patient is Moderately Stable - Low risk of patient condition declining or worsening The patient's goals for the shift include get rid of this pain The clinical goals for the shift include maintain safety, manage pain Over the shift, the patient did not make progress toward the following goals. Barriers to progression include acute illness. Recommendations to address these barriers include continue current care plan. [facility] 10-10-2022 Consult note Formatting of th is note is different from the original. Pharmacy Note Vancomycin Consult Non-FIXED INCOME DIRECTOR Katherine Judge is a 87 y.o. year old female ordered vancomycin for IAI; consult from Dr. Lucio to manage therapy. 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 Gout 10/14/2020 Fish allergy, Cephalexin, Clarithromycin, Clindamycin, Doxazosin, Erythromycin base, Eszopiclone, Lorazepam, Nsaids, Penicillins, Rofecoxib, Salicylates, Temazepam, Tetracyclines & related, Trazodone, and Lincomycin CREATININE Date Value Ref Range Status 10/10/2022 0.94 0.52 - 1.04 mg/dL Final 10/22/2020 0.69 0.52 - 1.25 mg/dL Final UREA NITROGEN Date Value Ref Range Status 10/10/2022 22 (H) 7 - 17 mg/dL Final Auto WBC Date Value Ref Range Status 10/10/2022 16.9 (H) 3.6 - 10.7 10*3/uL Final Ht Readings from Last 1 Encounters: No data found for Ht Wt Readings from Last 1 Encounters: No data found for Wt Plan: Will initiate vancomycin 750 mg IV every 24 hours based on predicted AUC of 464 mg/L.hr . Goal AUC is 400-600 mg/L.hr. Random level will be scheduled for 10/11 at 0500. Thank you for the consult. Will continue to follow. [facility] 10-10-2022 History and physical note Images from the original note were not included. Attending History and Physical Admit Date: 10/10/2022 PCP: Saida Gardiner CHIEF COMPLAINT: abdominal pain Reason for Admission: proctocolitis/constipation/hx bowel obstructions History Obtained From: patient/chart HISTORY OF PRESENT ILLNESS: Katherine is a 87 y.o. female with past medical history below who presents with chief complaint listed above. She has had a one week hx of worsening abdominal pain which is achy/crampy in nature. It began on the right side but is now more diffuse across the abdomen. She has had some decreased bowel movements/constipation recently. She also has had a cough productive of thick, yellow sputum that began yesterday. She is requiring some oxygen today. She feels weak. She does had a hx of bowel obstructions in the past. She denies chest pain, sob, nausea, vomiting, diarrhea, constipation, fevers, or chills. Will admit for further evaluation and management. D/w pt Past Medical History: Past Medical History: Diagnosis Date CAD (coronary artery disease) Hypothyroidism Ischemic colitis (CMS/HCC) Past Surgical History: Past Surgical History: Procedure Laterality Date OTHER SURGICAL HISTORY she reports bowel resections in the past Social History: Social History Socioeconomic History Marital status: Spouse name: Not on file Number of children: Not on file Years of education: Not on file Highest education level: Not on file Occupational History Not on file Tobacco Use Smoking status: Never Smokeless tobacco: Never Substance and Sexual Activity Alcohol use: Never Drug use: Never Sexual activity: Not on file Other Topics Concern Not on file Social History Narrative Not on file Social Determinants of Health Financial Resource Strain: Not on file Food Insecurity: Not on file Transportation Needs: Not on file Physical Activity: Not on file Stress: Not on file Social Connections: Not on file Intimate Partner Violence: Not on file Housing Stability: Not on file Family History: No family history on file. Medications Prior to Admission: No current facility-administered medications on file prior to encounter. No current outpatient medications on file prior to encounter. Allergies: Allergies Allergen Reactions Fish Allergy Anaphylaxis Cephalexin Hives Other reaction(s): Unknown Clarithromycin Other reaction(s): Unknown Clindamycin Unknown Doxazosin Unknown Erythromycin Base Other reaction(s): Unknown Eszopiclone Unknown Lorazepam Other reaction(s): Unknown Nsaids Other reaction(s): Unknown Penicillins Hives Other reaction(s): Unknown Rofecoxib Unknown Other reaction(s): Intolerance Salicylates GI bleeding and Unknown Other reaction(s): Intolerance Other reaction(s): Intolerance Temazepam Other reaction(s): Unknown RESTORIL Tetracyclines & Related Hives Other reaction(s): Unknown Other reaction(s): Unknown Trazodone Unknown Lincomycin Nausea And Vomiting, Rash and Unknown REVIEW OF SYSTEMS: As per HPI otherwise 10 system review is unremarkable. Vitals: BP (!) 143/82 Pulse 110 Temp 37.6 C (99.7 F) (Temporal) Resp 16 SpO2 91% BMI Classification: Overweight (BMI 25.0-29.9) Pulse Ox: SpO2 Av % Min: 91 % Max: 91 % Supplemental O2: PHYSICAL EXAM: Physical Exam Vitals and nursing note reviewed. Constitutional: General: She is not in acute distress. HENT: Head: Normocephalic and atraumatic. Eyes: Extraocular Movements: Extraocular movements intact. Pupils: Pupils are equal, round, and reactive to light. Cardiovascular: Rate and Rhythm: Regular rhythm. Tachycardia present. Pulses: Normal pulses. Pulmonary: Effort: Pulmonary effort is normal. Breath sounds: Normal breath sounds. Abdominal: General: There is distension. Palpations: Abdomen is soft. Tenderness: There is abdominal tenderness. There is no rebound. Musculoskeletal: General: Normal range of motion. Cervical back: Normal range of motion and neck supple. Skin: General: Skin is warm. Neurological: General: No focal deficit present. Mental Status: She is alert and oriented to person, place, and time. Mental status is at baseline. Psychiatric: Mood and Affect: Mood normal. DATA: CBC: Recent Labs 10/10/22 1454 WBC 16.9* RBC 3.65* HGB 12.6 HCT 37.3 MCV 102.0* RDW 14.2 PLT 217 BMP: Recent Labs 10/10/22 1454 NA 142 K 4.1 CL 103 CO2 30 BUN 22* CREATININE 0.94 GLUCOSE 110* CALCIUM 8.9 ANIONGAP 8 LIVER PROFILE: Recent Labs 10/10/22 1454 AST 24 ALT 14 BILITOT 1.0 ALKPHOS 88 PROT 7.0 PT/INR: No results for input(s): PROTIME, INR in the last 72 hours. CARDIAC ENZYMES: No results for input(s): TROPONINI in the last 72 hours. Procalcitonin: No results found for: PROCAL Urine Culture: No results found for this or any previous visit. COVID-19 PCR: No results for input(s): COVID19 in the last 72 hours. I reviewed: [x] laboratory results [x] radiographic results At the time of today's encounter. Pt was advised of the results. IMPRESSION: Abdominal pain Proctocolitis Constipation Cough, productive Leukocytosis Hypothyroidism CAD depression Medical Decision Making: I discussed management with the ED clinician and agree with need for hospitalization, continue IV antibiotics, continue pain control, NPO, GI evaluation, check cxr, wean oxygen, prn aerosols, IS, check sputum cx/pneumonia pcr, ag's, IVF, follow up labs, obtain and review home meds and restart as appropriate, discharge planning, see admission orders. -Discussed with ED provider and agree with their plan for admission -PT/OT eval/increase activity -am labs, replace lytes prn -vitals per routine -home meds as ordered -DVT prophylaxis: [x] Lovenox [] Heparin [] SCDs [x] Encourage ambulation [] Already on Anticoagulation Anticipated Discharge - Date - 10/12-10/14 - Location - Home - Pending the following - clinical improvement, completion of work up and when OK with consultants Total time spent (which include face to face and non face to face encounters) : 59 minutes Toxic drug monitoring/narrow therapeutic index drug monitoring : # Drug name : # Route administered : # Method of monitoring : Extended Emergency Contact Information Primary Emergency Contact: Nu[employer] Mobile Relation: Son Preferred language: Sudanese 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 Thank you. [facility] Phone: 10-10-2022 History and physical note Images from the original note were not included. Attending History and Physical Admit Date: 10/10/2022 PCP: Saida Gardiner CHIEF COMPLAINT: abdominal pain Reason for Admission: proctocolitis/constipation/hx bowel obstructions History Obtained From: patient/chart HISTORY OF PRESENT ILLNESS: Katherine is a 87 y.o. female with past medical history below who presents with chief complaint listed above. She has had a one week hx of worsening abdominal pain which is achy/crampy in nature. It began on the right side but is now more diffuse across the abdomen. She has had some decreased bowel movements/constipation recently. She also has had a cough productive of thick, yellow sputum that began yesterday. She is requiring some oxygen today. She feels weak. She does had a hx of bowel obstructions in the past. She denies chest pain, sob, nausea, vomiting, diarrhea, constipation, fevers, or chills. Will admit for further evaluation and management. D/w pt Past Medical History: Past Medical History: Diagnosis Date CAD (coronary artery disease) Hypothyroidism Ischemic colitis (CMS/HCC) Past Surgical History: Past Surgical History: Procedure Laterality Date OTHER SURGICAL HISTORY she reports bowel resections in the past Social History: Social History Socioeconomic History Marital status: Spouse name: Not on file Number of children: Not on file Years of education: Not on file Highest education level: Not on file Occupational History Not on file Tobacco Use Smoking status: Never Smokeless tobacco: Never Substance and Sexual Activity Alcohol use: Never Drug use: Never Sexual activity: Not on file Other Topics Concern Not on file Social History Narrative Not on file Social Determinants of Health Financial Resource Strain: Not on file Food Insecurity: Not on file Transportation Needs: Not on file Physical Activity: Not on file Stress: Not on file Social Connections: Not on file Intimate Partner Violence: Not on file Housing Stability: Not on file Family History: No family history on file. Medications Prior to Admission: No current facility-administered medications on file prior to encounter. No current outpatient medications on file prior to encounter. Allergies: Allergies Allergen Reactions Fish Allergy Anaphylaxis Cephalexin Hives Other reaction(s): Unknown Clarithromycin Other reaction(s): Unknown Clindamycin Unknown Doxazosin Unknown Erythromycin Base Other reaction(s): Unknown Eszopiclone Unknown Lorazepam Other reaction(s): Unknown Nsaids Other reaction(s): Unknown Penicillins Hives Other reaction(s): Unknown Rofecoxib Unknown Other reaction(s): Intolerance Salicylates GI bleeding and Unknown Other reaction(s): Intolerance Other reaction(s): Intolerance Temazepam Other reaction(s): Unknown RESTORIL Tetracyclines & Related Hives Other reaction(s): Unknown Other reaction(s): Unknown Trazodone Unknown Lincomycin Nausea And Vomiting, Rash and Unknown REVIEW OF SYSTEMS: As per HPI otherwise 10 system review is unremarkable. Vitals: BP (!) 143/82 Pulse 110 Temp 37.6 C (99.7 F) (Temporal) Resp 16 SpO2 91% BMI Classification: Overweight (BMI 25.0-29.9) Pulse Ox: SpO2 Av % Min: 91 % Max: 91 % Supplemental O2: PHYSICAL EXAM: Physical Exam Vitals and nursing note reviewed. Constitutional: General: She is not in acute distress. HENT: Head: Normocephalic and atraumatic. Eyes: Extraocular Movements: Extraocular movements intact. Pupils: Pupils are equal, round, and reactive to light. Cardiovascular: Rate and Rhythm: Regular rhythm. Tachycardia present. Pulses: Normal pulses. Pulmonary: Effort: Pulmonary effort is normal. Breath sounds: Normal breath sounds. Abdominal: General: There is distension. Palpations: Abdomen is soft. Tenderness: There is abdominal tenderness. There is no rebound. Musculoskeletal: General: Normal range of motion. Cervical back: Normal range of motion and neck supple. Skin: General: Skin is warm. Neurological: General: No focal deficit present. Mental Status: She is alert and oriented to person, place, and time. Mental status is at baseline. Psychiatric: Mood and Affect: Mood normal. DATA: CBC: Recent Labs 10/10/22 1454 WBC 16.9* RBC 3.65* HGB 12.6 HCT 37.3 MCV 102.0* RDW 14.2 PLT 217 BMP: Recent Labs 10/10/22 1454 NA 142 K 4.1 CL 103 CO2 30 BUN 22* CREATININE 0.94 GLUCOSE 110* CALCIUM 8.9 ANIONGAP 8 LIVER PROFILE: Recent Labs 10/10/22 1454 AST 24 ALT 14 BILITOT 1.0 ALKPHOS 88 PROT 7.0 PT/INR: No results for input(s): PROTIME, INR in the last 72 hours. CARDIAC ENZYMES: No results for input(s): TROPONINI in the last 72 hours. Procalcitonin: No results found for: PROCAL Urine Culture: No results found for this or any previous visit. COVID-19 PCR: No results for input(s): COVID19 in the last 72 hours. I reviewed: [x] laboratory results [x] radiographic results At the time of today's encounter. Pt was advised of the results. IMPRESSION: Abdominal pain Proctocolitis Constipation Cough, productive Leukocytosis Hypothyroidism CAD depression Medical Decision Making: I discussed management with the ED clinician and agree with need for hospitalization, continue IV antibiotics, continue pain control, NPO, GI evaluation, check cxr, wean oxygen, prn aerosols, IS, check sputum cx/pneumonia pcr, ag's, IVF, follow up labs, obtain and review home meds and restart as appropriate, discharge planning, see admission orders. -Discussed with ED provider and agree with their plan for admission -PT/OT eval/increase activity -am labs, replace lytes prn -vitals per routine -home meds as ordered -DVT prophylaxis: [x] Lovenox [] Heparin [] SCDs [x] Encourage ambulation [] Already on Anticoagulation Anticipated Discharge - Date - 10/12-10/14 - Location - Home - Pending the following - clinical improvement, completion of work up and when OK with consultants Total time spent (which include face to face and non face to face encounters) : 59 minutes Toxic drug monitoring/narrow therapeutic index drug monitoring : # Drug name : # Route administered : # Method of monitoring : Extended Emergency Contact Information Primary Emergency Contact: Ganga Judge Mobile Relation: Son Preferred language: Sudanese 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 Thank you. documented in this encounter [facility] 10-10-2022 Emergency department Note Guided family back NADIYA Cleary 10/10/22 1419 [facility] 10-10-2022 Emergency department Note Guided family back NADIYA Cleary 10/10/22 1419 Emergency Department Encounter [facility] ED Patient: Katherine Judge : 1935 Date of Evaluation: 10/10/2022 ED Supervising Physician: Evelin Salcedo DO I independently examined and evaluated Katherine Judge. This will serve as my Supervisory note and shared attestation. I did perform a substantive portion of the visit including all aspects of the Medical Decision Making. I wore appropriate PPE for the entirety of this encounter. In brief, Katherine Judge is a 87 y.o. that presents to the emergency department for abdominal pain. Patient states she has had multiple abdominal surgeries in the past. She denies any nausea, vomiting, constipation, states she is still passing gas. She denies any fevers or chills. Patient states she is just feeling unwell Focused exam: I have reviewed the triage vital signs General: No acute distress. Alert & oriented x3. Nontoxic in appearance Skin: Warm, dry, no rashes visualized HEENT: Pupils equal and round, EOMI, normal sclera Neck: Trachea midline, no mass Cardiovascular: Regular rate, regular rhythm. No murmurs, rubs, or gallops. No peripheral edema Respiratory: Breath sounds clear to auscultation bilaterally, no wheeze, equal chest rise and fall Gastrointestinal: Soft, mildly distended, diffusely tender, no rebound, no guarding Musculoskeletal: Nontender, no gross deformities appreciated, no swollen joints exposed on exam Neurological: Alert and oriented, no focal neuro deficits, normal speech pattern Psychiatric: Appropriate mood and affect for condition, normal behavior Brief ED course/MDM: Patient is an 87-year-old female presenting to the emergency department with abdominal pain. Concern for SBO, colitis, gastritis, pancreatitis, or other acute intra-abdominal process. Plan to obtain CT abdomen pelvis with IV contrast and basic labs to evaluate. Labs concerning for leukocytosis to 16.9. CT abdomen pelvis with large stool burden concerning for proctocolitis with associated reactive lymph nodes. Given the patient's age, history of multiple abdominal surgeries, CT findings, as well as significant leukocytosis, patient would benefit from admission for further treatment of her abdominal pain. All diagnostic, treatment, and disposition decisions were made by myself in conjunction with the [facility]. For all further details of the patient's emergency department visit, please see their documentation. (Comment: Please note this report has been produced using speech recognition software and may contain errors related to that system including errors in grammar, punctuation, and spelling, as well as words and phrases that may be inappropriate. If there are any questions or concerns please feel free to contact the dictating provider for clarification.) Evelin Salcedo DO [employer] Evelin Salcedo DO 10/10/222130 EMERGENCY DEPARTMENT ENCOUNTER Pt Name: Katherine Judge Birthdate 1935 Date of evaluation: 10/10/2022 ED Provider: Celeste Oneal PA-C EDcare was supervised by Dr. Salcedo who independently examined and evaluated the patient. Please see their attestation note for further details. CHIEF COMPLAINT Chief Complaint Patient presents with Abdominal Pain Pt states since last night she had right sided abd pain that moved to the left side. Pt states today she started to cough as well. Pt is alert and oriented vitals taken in triage HISTORY OF PRESENT ILLNESS (Location/Symptom, Timing/Onset, Context/Setting, Quality, Duration, Modifying Factors, Severity) Note limiting factors. I wore appropriate PPE for the entirety of this encounter. HPI Katherine Judge is a 87 y.o. who presents to the emergency department complaint of right-sided abdominal pain radiating towards her left side. Patient says that last night she started to have a productive cough and today woke up with sick p.o. abdominal pain. She is denying any nausea or vomiting. No diarrhea or constipation. Denies any urinary symptoms. No chest pain or shortness of breath. Says that she just feels very unwell. No recent sick contacts to her knowledge. Patient has a significant history of bowel obstruction in the past secondary to adhesions/endometriosis. She said this does not feel like a bowel obstruction because she is not having any nausea or vomiting. Nursing Notes were reviewed. Limitations to history: None Outside historians: None REVIEW OF SYSTEMS Review of Systems Constitutional: Negative for chills and fever. HENT: Negative for congestion and sore throat. Eyes: Negative for visual disturbance. Respiratory: Positive for cough. Negative for shortness of breath. Cardiovascular: Negative for chest pain. Gastrointestinal: Positive for abdominal pain. Negative for nausea and vomiting. Genitourinary: Negative for dysuria and hematuria. Musculoskeletal: Negative for arthralgias and myalgias. Skin: Negative for color change and rash. Neurological: Negative for dizziness and syncope. Psychiatric/Behavioral: Negative. All other systems reviewed and are negative. Pertinent positives and negatives as per HPI. PAST MEDICAL HISTORY Past Medical History: Diagnosis Date CAD (coronary artery disease) Hypothyroidism Ischemic colitis (CMS/HCC) SURGICAL HISTORY Past Surgical History: Procedure Laterality Date OTHER SURGICAL HISTORY she reports bowel resections in the past CURRENT MEDICATIONS Previous Medications No medications on file ALLERGIES Fish allergy, Cephalexin, Clarithromycin, Clindamycin, Doxazosin, Erythromycin base, Eszopiclone, Lorazepam, Nsaids, Penicillins, Rofecoxib, Salicylates, Temazepam, Tetracyclines & related, Trazodone, and Lincomycin FAMILY HISTORY No family history on file. SOCIAL HISTORY Social History Socioeconomic History Marital status: Tobacco Use Smoking status: Never Smokeless tobacco: Never Substance and Sexual Activity Alcohol use: Never Drug use: Never SCREENINGS PHYSICAL EXAM ED Triage Vitals [10/10/22 1328] Temp Heart Rate Resp BP 37.6 C (99.7 F) 110 16 (!) 143/82 SpO2 Temp Source Heart Rate Source Patient Position 91 % Temporal Monitor -- BP Location FiO2 (%) -- -- Physical Exam Vitals and nursing note reviewed. Constitutional: General: She is not in acute distress. Appearance: She is well-developed. Cardiovascular: Rate and Rhythm: Regular rhythm. Tachycardia present. Heart sounds: No murmur heard. Pulmonary: Effort: Pulmonary effort is normal. No respiratory distress. Breath sounds: Normal breath sounds. Abdominal: General: Bowel sounds are normal. There is no distension. Palpations: Abdomen is soft. Tenderness: There is generalized abdominal tenderness. There is no guarding or rebound. Musculoskeletal: Right lower leg: No edema. Left lower leg: No edema. Skin: General: Skin is warm and dry. Capillary Refill: Capillary refill takes less than 2 seconds. Neurological: Mental Status: She is alert and oriented to person, place, and time. Psychiatric: Mood and Affect: Mood normal. Behavior: Behavior normal. DIAGNOSTIC RESULTS RADIOLOGY (Per Emergency Physician): Interpretation per the Radiologist below, if available at the time of this note: CT abdomen pelvis w contrast (Results Pending) LABS: Labs Reviewed SARS-COV-2, FLU A/B, AND RSV COMBO BASIC METABOLIC PANEL HEPATIC FUNCTION PANEL LACTIC ACID, SEPSIS WITH REFLEX IF ELEVATED LIPASE CBC WITH AUTO DIFFERENTIAL COMPLETE URINALYSIS WITH REFLEX TO CULTURE Narrative: The following orders were created for panel order Urinalysis complete with reflex to Culture. Procedure Abnormality Status --------- ------ Complete Urinalysis[[id number]] Please view results for these tests on the individual orders. COMPLETE URINALYSIS All other labs were within normal range or not returned as of this dictation. EMERGENCY DEPARTMENT COURSE and DIFFERENTIAL DIAGNOSIS/MDM: Vitals: Vitals: 10/10/22 1328 BP: (!) 143/82 Pulse: 110 Resp: 16 Temp: 37.6 C (99.7 F) TempSrc: Temporal SpO2: 91% Medications morphine injection 4 mg (has no administration in time range) ondansetron (Zofran) injection 4 mg (has no administration in time range) sodium chloride 0.9 % bolus 1,000 mL (has no administration in time range) MDM elements: The patient presented with chief complaint of new onset abdominal pain. On my exam she is alert, oriented, no acute distress, however appears uncomfortable. Abdomen soft, tender to palpation.. The differential diagnosis associated with this patient's presentation includes intra-abdominal infection, obstruction, viral illness. Our workup consisted of ordering/reviewing: CBC demonstrates leukocytosis of 16.9. Hemoglobin stable at 12.6. Lactic acid within normal limits at 0.9. BMP demonstrates hyperglycemia of 110. Hepatic function normal. Lipase within normal limits. Viral testing negative. Urinalysis not consistent with urinary tract infection. CT abdomen and pelvis demonstrates a large stool burden in the distal colon, likely causing proctocolitis with associated reactive lymph nodes. Cholelithiasis noted which appears to be chronic. EKG demonstrates sinus tachycardia. Patient provided with fluids, pain and nausea control, reports improvement of her symptoms. Antibiotics begun with concern for initial SIRS criteria. Patient will be admitted for further treatment of abdominal pain, proctocolitis, and constipation. The patient will be Admitted. Patient is in agreement with this plan. SEP-1 CORE MEASURE DATA SIRS Criteria Sepsis Criteria Severe Sepsis Criteria Septic Shock Criteria Must meet 2: [] Temperature > 100.4 F (38 C) or < 96.8 F (36 C) [x] HR > 90 [] RR > 20 [] WBC > 12 or < 4 or 10% bands Must be confirmed or suspected to move forward with diagnosis of sepsis. [x] Infection Confirmed or Suspected. [] No infection present. Patient does not meet criteria for Sepsis. Must meet 1: [] Lactate > 2 or [] Signs of Organ Dysfunction: - SBP < 90 or MAP < 65 - Altered mental status - Creatinine > 2 or increased from baseline - Urine Output < 0.5 ml/kg/hr - Bilirubin > 2 - INR > 1.5 - Platelets < 100,000 - Acute Respiratory Failure as evidenced by new need for NIPPV or mechanical ventilation [x] No criteria met for Severe Sepsis. Must meet 1: [] Lactate = or > 4 or [] SBP < 90 or MAP < 65 for at least two readings in the first hour after fluid bolus administration [] No criteria met for Septic Shock. No data found. Recent Labs 10/10/22 1454 WBC 16.9* CREATININE 0.94 BILITOT 1.0 PLT 217 PROCEDURES: Unless otherwise noted below, none Procedures CRITICAL CARE TIME FINAL IMPRESSION No diagnosis found. DISPOSITION PATIENT REFERRED TO: No follow-up provider specified. DISCHARGE MEDICATIONS: New Prescriptions No medications on file (Comment: Please note this report has been produced using speech recognition software and may contain errors related to that system including errors in grammar, punctuation, and spelling, as well as words and phrases that may be inappropriate. If there are any questions or concerns please feel free to contact the dictating provider for clarification.) Celeste Oneal PA-C (electronically signed) Emergency Medicine Provider Celeste Oneal PA-C 10/10/22 1729 documented in this encounter [facility] 10-10-2022 Physician Emergency department Note Emergency Department Encounter [facility] ED Patient: Katherine Judge : 1935 Date of Evaluation: 10/10/2022 ED Supervising Physician: Evelin Salcedo, I independently examined and evaluated Katherine Judge. This will serve as my Supervisory note and shared attestation. I did perform a substantive portion of the visit including all aspects of the Medical Decision Making. I wore appropriate PPE for the entirety of this encounter. In brief, Katherine Judge is a 87 y.o. that presents to the emergency department for abdominal pain. Patient states she has had multiple abdominal surgeries in the past. She denies any nausea, vomiting, constipation, states she is still passing gas. She denies any fevers or chills. Patient states she is just feeling unwell Focused exam: I have reviewed the triage vital signs General: No acute distress. Alert & oriented x3. Nontoxic in appearance Skin: Warm, dry, no rashes visualized HEENT: Pupils equal and round, EOMI, normal sclera Neck: Trachea midline, no mass Cardiovascular: Regular rate, regular rhythm. No murmurs, rubs, or gallops. No peripheral edema Respiratory: Breath sounds clear to auscultation bilaterally, no wheeze, equal chest rise and fall Gastrointestinal: Soft, mildly distended, diffusely tender, no rebound, no guarding Musculoskeletal: Nontender, no gross deformities appreciated, no swollen joints exposed on exam Neurological: Alert and oriented, no focal neuro deficits, normal speech pattern Psychiatric: Appropriate mood and affect for condition, normal behavior Brief ED course/MDM: Patient is an 87-year-old female presenting to the emergency department with abdominal pain. Concern for SBO, colitis, gastritis, pancreatitis, or other acute intra-abdominal process. Plan to obtain CT abdomen pelvis with IV contrast and basic labs to evaluate. Labs concerning for leukocytosis to 16.9. CT abdomen pelvis with large stool burden concerning for proctocolitis with associated reactive lymph nodes. Given the patient's age, history of multiple abdominal surgeries, CT findings, as well as significant leukocytosis, patient would benefit from admission for further treatment of her abdominal pain. All diagnostic, treatment, and disposition decisions were made by myself in conjunction with the [facility]. For all further details of the patient's emergency department visit, please see their documentation. (Comment: Please note this report has been produced using speech recognition software and may contain errors related to that system including errors in grammar, punctuation, and spelling, as well as words and phrases that may be inappropriate. If there are any questions or concerns please feel free to contact the dictating provider for clarification.) Evelin Salcedo DO Acute Care [facility] Evelin Salcedo DO 10/10/222130 [place] Phone: 10-10-2022 Physician Emergency department Note EMERGENCY DEPARTMENT ENCOUNTER Pt Name: Katherine Judge Birthdate 1935 Date of evaluation: 10/10/2022 ED Provider: Celeste Oneal PA-C EDcare was supervised by Dr. Salcedo who independently examined and evaluated the patient. Please see their attestation note for further details. CHIEF COMPLAINT Chief Complaint Patient presents with Abdominal Pain Pt states since last night she had right sided abd pain that moved to the left side. Pt states today she started to cough as well. Pt is alert and oriented vitals taken in triage HISTORY OF PRESENT ILLNESS (Location/Symptom, Timing/Onset, Context/Setting, Quality, Duration, Modifying Factors, Severity) Note limiting factors. I wore appropriate PPE for the entirety of this encounter. HPI Katherine Judge is a 87 y.o. who presents to the emergency department complaint of right-sided abdominal pain radiating towards her left side. Patient says that last night she started to have a productive cough and today woke up with sick p.o. abdominal pain. She is denying any nausea or vomiting. No diarrhea or constipation. Denies any urinary symptoms. No chest pain or shortness of breath. Says that she just feels very unwell. No recent sick contacts to her knowledge. Patient has a significant history of bowel obstruction in the past secondary to adhesions/endometriosis. She said this does not feel like a bowel obstruction because she is not having any nausea or vomiting. Nursing Notes were reviewed. Limitations to history: None Outside historians: None REVIEW OF SYSTEMS Review of Systems Constitutional: Negative for chills and fever. HENT: Negative for congestion and sore throat. Eyes: Negative for visual disturbance. Respiratory: Positive for cough. Negative for shortness of breath. Cardiovascular: Negative for chest pain. Gastrointestinal: Positive for abdominal pain. Negative for nausea and vomiting. Genitourinary: Negative for dysuria and hematuria. Musculoskeletal: Negative for arthralgias and myalgias. Skin: Negative for color change and rash. Neurological: Negative for dizziness and syncope. Psychiatric/Behavioral: Negative. All other systems reviewed and are negative. Pertinent positives and negatives as per HPI. PAST MEDICAL HISTORY Past Medical History: Diagnosis Date CAD (coronary artery disease) Hypothyroidism Ischemic colitis (CMS/HCC) SURGICAL HISTORY Past Surgical History: Procedure Laterality Date OTHER SURGICAL HISTORY she reports bowel resections in the past CURRENT MEDICATIONS Previous Medications No medications on file ALLERGIES Fish allergy, Cephalexin, Clarithromycin, Clindamycin, Doxazosin, Erythromycin base, Eszopiclone, Lorazepam, Nsaids, Penicillins, Rofecoxib, Salicylates, Temazepam, Tetracyclines & related, Trazodone, and Lincomycin FAMILY HISTORY No family history on file. SOCIAL HISTORY Social History Socioeconomic History Marital status: Tobacco Use Smoking status: Never Smokeless tobacco: Never Substance and Sexual Activity Alcohol use: Never Drug use: Never SCREENINGS PHYSICAL EXAM ED Triage Vitals [10/10/22 1328] Temp Heart Rate Resp BP 37.6 C (99.7 F) 110 16 (!) 143/82 SpO2 Temp Source Heart Rate Source Patient Position 91 % Temporal Monitor -- BP Location FiO2 (%) -- -- Physical Exam Vitals and nursing note reviewed. Constitutional: General: She is not in acute distress. Appearance: She is well-developed. Cardiovascular: Rate and Rhythm: Regular rhythm. Tachycardia present. Heart sounds: No murmur heard. Pulmonary: Effort: Pulmonary effort is normal. No respiratory distress. Breath sounds: Normal breath sounds. Abdominal: General: Bowel sounds are normal. There is no distension. Palpations: Abdomen is soft. Tenderness: There is generalized abdominal tenderness. There is no guarding or rebound. Musculoskeletal: Right lower leg: No edema. Left lower leg: No edema. Skin: General: Skin is warm and dry. Capillary Refill: Capillary refill takes less than 2 seconds. Neurological: Mental Status: She is alert and oriented to person, place, and time. Psychiatric: Mood and Affect: Mood normal. Behavior: Behavior normal. DIAGNOSTIC RESULTS RADIOLOGY (Per Emergency Physician): Interpretation per the Radiologist below, if available at the time of this note: CT abdomen pelvis w contrast (Results Pending) LABS: Labs Reviewed SARS-COV-2, FLU A/B, AND RSV COMBO BASIC METABOLIC PANEL HEPATIC FUNCTION PANEL LACTIC ACID, SEPSIS WITH REFLEX IF ELEVATED LIPASE CBC WITH AUTO DIFFERENTIAL COMPLETE URINALYSIS WITH REFLEX TO CULTURE Narrative: The following orders were created for panel order Urinalysis complete with reflex to Culture. Procedure Abnormality Status --------- ------ Complete Urinalysis[[id number]] Please view results for these tests on the individual orders. COMPLETE URINALYSIS All other labs were within normal range or not returned as of this dictation. EMERGENCY DEPARTMENT COURSE and DIFFERENTIAL DIAGNOSIS/MDM: Vitals: Vitals: 10/10/22 1328 BP: (!) 143/82 Pulse: 110 Resp: 16 Temp: 37.6 C (99.7 F) TempSrc: Temporal SpO2: 91% Medications morphine injection 4 mg (has no administration in time range) ondansetron (Zofran) injection 4 mg (has no administration in time range) sodium chloride 0.9 % bolus 1,000 mL (has no administration in time range) MDM elements: The patient presented with chief complaint of new onset abdominal pain. On my exam she is alert, oriented, no acute distress, however appears uncomfortable. Abdomen soft, tender to palpation.. The differential diagnosis associated with this patient's presentation includes intra-abdominal infection, obstruction, viral illness. Our workup consisted of ordering/reviewing: CBC demonstrates leukocytosis of 16.9. Hemoglobin stable at 12.6. Lactic acid within normal limits at 0.9. BMP demonstrates hyperglycemia of 110. Hepatic function normal. Lipase within normal limits. Viral testing negative. Urinalysis not consistent with urinary tract infection. CT abdomen and pelvis demonstrates a large stool burden in the distal colon, likely causing proctocolitis with associated reactive lymph nodes. Cholelithiasis noted which appears to be chronic. EKG demonstrates sinus tachycardia. Patient provided with fluids, pain and nausea control, reports improvement of her symptoms. Antibiotics begun with concern for initial SIRS criteria. Patient will be admitted for further treatment of abdominal pain, proctocolitis, and constipation. The patient will be Admitted. Patient is in agreement with this plan. SEP-1 CORE MEASURE DATA SIRS Criteria Sepsis Criteria Severe Sepsis Criteria Septic Shock Criteria Must meet 2: [] Temperature > 100.4 F (38 C) or < 96.8 F (36 C) [x] HR > 90 [] RR > 20 [] WBC > 12 or < 4 or 10% bands Must be confirmed or suspected to move forward with diagnosis of sepsis. [x] Infection Confirmed or Suspected. [] No infection present. Patient does not meet criteria for Sepsis. Must meet 1: [] Lactate > 2 or [] Signs of Organ Dysfunction: - SBP < 90 or MAP < 65 - Altered mental status - Creatinine > 2 or increased from baseline - Urine Output < 0.5 ml/kg/hr - Bilirubin > 2 - INR > 1.5 - Platelets < 100,000 - Acute Respiratory Failure as evidenced by new need for NIPPV or mechanical ventilation [x] No criteria met for Severe Sepsis. Must meet 1: [] Lactate = or > 4 or [] SBP < 90 or MAP < 65 for at least two readings in the first hour after fluid bolus administration [] No criteria met for Septic Shock. No data found. Recent Labs 10/10/22 1454 WBC 16.9* CREATININE 0.94 BILITOT 1.0 PLT 217 PROCEDURES: Unless otherwise noted below, none Procedures CRITICAL CARE TIME FINAL IMPRESSION No diagnosis found. DISPOSITION PATIENT REFERRED TO: No follow-up provider specified. DISCHARGE MEDICATIONS: New Prescriptions No medications on file (Comment: Please note this report has been produced using speech recognition software and may contain errors related to that system including errors in grammar, punctuation, and spelling, as well as words and phrases that may be inappropriate. If there are any questions or concerns please feel free to contact the dictating provider for clarification.) Celeste Oneal PA-C (electronically signed) Emergency Medicine Provider Celeste Oneal PA-C 10/10/22 1729 [facility] 10-07-2022 Evaluation + Plan note Associated Problem(s): Lower abdominal pain Recurrent, to return to established GI (Dr. Garcia) for further evaluation. [facility] Work Phone: 10-07-2022 Miscellaneous Notes Associated Problem(s): Lower abdominal pain Recurrent, to return to established GI (Dr. Garcia) for further evaluation. Associated Problem(s): Anemia in other chronic diseases classified elsewhere 05/2022 CBC normal Patient to stop oral iron at this time. Repeat labs to be done prior to 6 month follow-up. Associated Problem(s): Benign essential hypertension BP is under good control, 122/70 in office today. Continue present regimen. Associated Problem(s): Osteoporosis 04/2022 DEXA osteopenia 2/3 sites. Previously disinclined to initiate bisphosphonate due to CKD. Patient defers therapy at this time as she is planning to have dental procedures (extractions) in 10/2022. Will revisit at next routine follow-up provided dental work is complete. Recommend weightbearing exercise such as walking 4-6 days per week 30 minutes on those days. Other strengthening exercises such as yoga and lifting weights can also be helpful. Take vitamin D at 1000 IU daily and calcium at 1500 mg daily. Associated Problem(s): Chronic kidney disease, stage III (moderate) ([facility]) 05/2022 labs at baseline for patient. Will continue to monitor on regular basis. Revisited good BP control, avoiding NSAIDs, and adequate hydration as measures to further protect kidneys. Associated Problem(s): Hypercholesterolemia 05/2022 TC/HDL ratio 3.3, LDL 84, TRIG 135 Goal TC/HDL ratio 3.4 or less, LDL 99 or less, TC 200 or less, and TRIG 150 or less. Continue current regimen of Atorvastatin, Isosorbide, and Plavix. Continue heart healthy diet Continue exercise as tolerated Associated Problem(s): CAD (coronary artery disease) 05/2022 TC/HDL ratio 3.3, LDL 84, TRIG 135 Goal TC/HDL ratio 3.4 or less, LDL 99 or less, TC 200 or less, and TRIG 150 or less. Continue current regimen of Atorvastatin, Isosorbide, and Plavix. Continue heart healthy diet Continue exercise as tolerated Associated Problem(s): Allergic rhinitis Numerous long-standing allergies, including mold/dust, seasonal allergies. Sub-optimal control on Flonase, oral antihistamine, and Singulair. 1. Continue the Flonase, oral antihistamine, and Singulair. 2. Start Azelastine nasal spray in addition to the Flonase, prescription sent to pharmacy. 3. Consider using Navage or Netipot to irrigate sinuses after possible exposures. Do this before using the nasal sprays. 4. Allergy/immunology referral placed today. documented in this encounter [facility] Work Phone: 10-07-2022 Evaluation + Plan note Associated Problem(s): Anemia in other chronic diseases classified elsewhere 05/2022 CBC normal Patient to stop oral iron at this time. Repeat labs to be done prior to 6 month follow-up. [facility] Work Phone: 10-07-2022 Evaluation + Plan note Associated Problem(s): Benign essential hypertension BP is under good control, 122/70 in office today. Continue present regimen. [facility] Work Phone: 10-07-2022 Evaluation + Plan note Associated Problem(s): Osteoporosis 04/2022 DEXA osteopenia 2/3 sites. Previously disinclined to initiate bisphosphonate due to CKD. Patient defers therapy at this time as she is planning to have dental procedures (extractions) in 10/2022. Will revisit at next routine follow-up provided dental work is complete. Recommend weightbearing exercise such as walking 4-6 days per week 30 minutes on those days. Other strengthening exercises such as yoga and lifting weights can also be helpful. Take vitamin D at 1000 IU daily and calcium at [address] [facility] Work Phone: 10-07-2022 Evaluation + Plan note Associated Problem(s): Chronic kidney disease, stage III (moderate) (CMS/HCC) 05/2022 labs at baseline for patient. Will continue to monitor on regular basis. Revisited good BP control, avoiding NSAIDs, and adequate hydration as measures to further protect kidneys. [facility] Work Phone: 10-07-2022 Evaluation + Plan note Associated Problem(s): Hypercholesterolemia 05/2022 TC/HDL ratio 3.3, LDL 84, TRIG 135 Goal TC/HDL ratio 3.4 or less, LDL 99 or less, TC 200 or less, and TRIG 150 or less. Continue current regimen of Atorvastatin, Isosorbide, and Plavix. Continue heart healthy diet Continue exercise as tolerated [facility] Work Phone: 10-07-2022 Evaluation + Plan note Associated Problem(s): CAD (coronary artery disease) 05/2022 TC/HDL ratio 3.3, LDL 84, TRIG 135 Goal TC/HDL ratio 3.4 or less, LDL 99 or less, TC 200 or less, and TRIG 150 or less. Continue current regimen of Atorvastatin, Isosorbide, and Plavix. Continue heart healthy diet Continue exercise as tolerated [facility] Work Phone: 10-07-2022 Evaluation + Plan note Associated Problem(s): Allergic rhinitis Numerous long-standing allergies, including mold/dust, seasonal allergies. Sub-optimal control on Flonase, oral antihistamine, and Singulair. 1. Continue the Flonase, oral antihistamine, and Singulair. 2. Start Azelastine nasal spray in addition to the Flonase, prescription sent to pharmacy. 3. Consider using Navage or Netipot to irrigate sinuses after possible exposures. Do this before using the nasal sprays. 4. Allergy/immunology referral placed today. [facility] Work Phone: 10-07-2022 History of Present illness Narrative Subjective Patient ID: Katherine Judge is a 87 y.o. female who presents for Follow-up (Pt presents for 6 month follow up- pt states that her allergies have been bothering her.). HPI Patient presents today for routine 6 month follow-up. Patient states that her allergies are bothering her now, known history of multiple allergies, thinks currently related to fall weather/plants. Also allergic to mold/dust, etc. She is already on Flonase, oral antihistamine, and Singulair. She does not use device such as Navage or Neti-pot. She changes bed sheets once per week. Has carpet she cannot get rid of, will get this cleaned in near future. She notes she made appointment with GI for abdominal symptoms but cancelled when these improved. She is now having some discomfort, presently more persistently over the last 3 weeks. She endorses some dark stools but states this is due to oral iron supplementation. CHRONIC CONDITIONS: -MVP, MR Followed by cardiology ECHO 03/2022 LV 60-65%, impaired relaxation, [id number] prolapse of the P2 segment of the posterior leaflet, mild-to-mod centrally and laterally directed MR, mild-to-mod MR, mildly elevated RVSP. -HTN Historically well controlled on Doxazosin 1 mg + Metoprolol 25 mg BID She is also taking Lasix. 05/2022 BMP and Mg normal. -Bilateral carotid artery stenosis 03/2022 US carotids: less than 50% stenosis bilaterally -HLD and CAD s/p CABG Cholesterol well-controlled on Atorvastatin 10 mg She is also taking Isosorbide 60 mg + Plavix 05/2022 TC/HDL ratio 3.3, LDL 84, TRIG 135 -GERD Taking Pantoprazole + Famotidine Follows with GI -CKD 05/2022 BMP at baseline. -Osteoporosis 04/2022 DEXA osteopenia 2/3 sites. Previously disinclined to initiate bisphosphonate due to CKD. May reconsider medical therapy if considerable change. Defers 09/2022, planning to have dental procedures (extractions) in . 02/2019 DEXA T-SCORES: Left femur neck: -2.7 Left femur total: -2.7 Spine: -0.6 04/2022 DEXA T-SCORES: Left femur neck: -3.0 Left femur total: -2.9 Spine: 0.2 Review of Systems All other systems reviewed and are negative. Objective BP 122/70 (BP Location: Right arm, Patient Position: Sitting, BP Cuff Size: Small adult) Pulse 67 Temp 36.2 C (97.2 F) (Temporal) Resp 12 Wt 47.4 kg (104 lb 9.6 oz) SpO2 90% BMI 20.09 kg/m Physical Exam Vitals and nursing note reviewed. Constitutional: General: She is not in acute distress. Appearance: Normal appearance. She is not toxic-appearing. HENT: Head: Normocephalic and atraumatic. Eyes: Extraocular Movements: Extraocular movements intact. Pupils: Pupils are equal, round, and reactive to light. Neck: Thyroid: No thyromegaly. Cardiovascular: Rate and Rhythm: Normal rate and regular rhythm. Heart sounds: Murmur (mid left sternal border) heard. Systolic murmur is present with a grade of 3/6. No friction rub. No gallop. Pulmonary: Effort: Pulmonary effort is normal. Breath sounds: Normal breath sounds. No wheezing, rhonchi or rales. Abdominal: General: Bowel sounds are normal. There is no distension. Palpations: Abdomen is soft. There is no mass. Tenderness: There is abdominal tenderness (mildly tender to deep palpation) in the suprapubic area. There is no guarding. Musculoskeletal: Right lower leg: No edema. Left lower leg: No edema. Comments: Severe kyphosis of thoracic spine. Lymphadenopathy: Cervical: No cervical adenopathy. Skin: General: Skin is warm and dry. Neurological: General: No focal deficit present. Mental Status: She is alert and oriented to person, place, and time. Psychiatric: Mood and Affect: Mood normal. Behavior: Behavior normal. Assessment/Plan Problem List Items Addressed This Visit Allergic rhinitis Numerous long-standing allergies, including mold/dust, seasonal allergies. Sub-optimal control on Flonase, oral antihistamine, and Singulair. 1. Continue the Flonase, oral antihistamine, and Singulair. 2. Start Azelastine nasal spray in addition to the Flonase, prescription sent to pharmacy. 3. Consider using Navage or Netipot to irrigate sinuses after possible exposures. Do this before using the nasal sprays. 4. Allergy/immunology referral placed today. Relevant Medications azelastine (Astelin) 137 mcg (0.1 %) nasal spray Anemia in other chronic diseases classified elsewhere 05/2022 CBC normal Patient to stop oral iron at this time. Repeat labs to be done prior to 6 month follow-up. Benign essential hypertension - Primary BP is under good control, 122/70 in office today. Continue present regimen. CAD (coronary artery disease) 05/2022 TC/HDL ratio 3.3, LDL 84, TRIG 135 Goal TC/HDL ratio 3.4 or less, LDL 99 or less, TC 200 or less, and TRIG 150 or less. Continue current regimen of Atorvastatin, Isosorbide, and Plavix. Continue heart healthy diet Continue exercise as tolerated Chronic kidney disease, stage III (moderate) (CMS/HCC) 05/2022 labs at baseline for patient. Will continue to monitor on regular basis. Revisited good BP control, avoiding NSAIDs, and adequate hydration as measures to further protect kidneys. Hypercholesterolemia 05/2022 TC/HDL ratio 3.3, LDL 84, TRIG 135 Goal TC/HDL ratio 3.4 or less, LDL 99 or less, TC 200 or less, and TRIG 150 or less. Continue current regimen of Atorvastatin, Isosorbide, and Plavix. Continue heart healthy diet Continue exercise as tolerated Osteoporosis 04/2022 DEXA osteopenia 2/3 sites. Previously disinclined to initiate bisphosphonate due to CKD. Patient defers therapy at this time as she is planning to have dental procedures (extractions) in 10/2022. Will revisit at next routine follow-up provided dental work is complete. Recommend weightbearing exercise such as walking 4-6 days per week 30 minutes on those days. Other strengthening exercises such as yoga and lifting weights can also be helpful. Take vitamin D at 1000 IU daily and calcium at 1500 mg daily. Lower abdominal pain Recurrent, to return to established GI (Dr. Garcia) for further evaluation. Relevant Orders Referral to Gastroenterology Other Visit Diagnoses Multiple allergies Relevant Orders Referral to Allergy Follow-up in 6 months for routine care. Labs to be done prior. Call for sooner follow-up if needed. Scribe Attestation By signing my name below, I, YanaTomas Evangelista attest that this documentation has been prepared under the direction and in the presence of Christ Gardiner DO. documented in this encounter [facility] Work Phone: 10-07-2022 Instructions Christ Gardiner DO - 10/07/2022 1:30 PM EDT Assessment/Plan Problem List Items Addressed This Visit Allergic rhinitis Numerous long-standing allergies, including mold/dust, seasonal allergies. Sub-optimal control on Flonase, oral antihistamine, and Singulair. 1. Continue the Flonase, oral antihistamine, and Singulair. 2. Start Azelastine nasal spray in addition to the Flonase, prescription sent to pharmacy. 3. Consider using Navage or Netipot to irrigate sinuses after possible exposures. Do this before using the nasal sprays. 4. Allergy/immunology referral placed today. Relevant Medications azelastine (Astelin) 137 mcg (0.1 %) nasal spray Anemia in other chronic diseases classified elsewhere 05/2022 CBC normal Patient to stop oral iron at this time. Repeat labs to be done prior to 6 month follow-up. Benign essential hypertension - Primary BP is under good control, 122/70 in office today. Continue present regimen. CAD (coronary artery disease) 05/2022 TC/HDL ratio 3.3, LDL 84, TRIG 135 Goal TC/HDL ratio 3.4 or less, LDL 99 or less, TC 200 or less, and TRIG 150 or less. Continue current regimen of Atorvastatin, Isosorbide, and Plavix. Continue heart healthy diet Continue exercise as tolerated Chronic kidney disease, stage III (moderate) (CMS/HCC) 05/2022 labs at baseline for patient. Will continue to monitor on regular basis. Revisited good BP control, avoiding NSAIDs, and adequate hydration as measures to further protect kidneys. Hypercholesterolemia 05/2022 TC/HDL ratio 3.3, LDL 84, TRIG 135 Goal TC/HDL ratio 3.4 or less, LDL 99 or less, TC 200 or less, and TRIG 150 or less. Continue current regimen of Atorvastatin, Isosorbide, and Plavix. Continue heart healthy diet Continue exercise as tolerated Osteoporosis 04/2022 DEXA osteopenia 2/3 sites. Previously disinclined to initiate bisphosphonate due to CKD. Patient defers therapy at this time as she is planning to have dental procedures (extractions) in 10/2022. Will revisit at next routine follow-up provided dental work is complete. Recommend weightbearing exercise such as walking 4-6 days per week 30 minutes on those days. Other strengthening exercises such as yoga and lifting weights can also be helpful. Take vitamin D at 1000 IU daily and calcium at 1500 mg daily. Lower abdominal pain Recurrent, to return to established GI (Dr. Garcia) for further evaluation. Relevant Orders Referral to Gastroenterology Other Visit Diagnoses Multiple allergies Relevant Orders Referral to Allergy Follow-up in 6 months for routine care. Labs to be done prior. Call for sooner follow-up if needed. documented in this encounter [facility] Work Phone: 06-19-2022 Evaluation + Plan note Associated Problem(s): Pneumonia due to infectious organism 05/30/2022 CXR: Possible focus of new right lower lobe pneumonia. Large hiatal hernia again noted. Numerous vertebral compression fractures. Patient has completed treatment with Levaquin. O2 91% at rest in office today, patient reports O2 averaging 91-94 at home. Physical exam is reassuring today, patient reports that she is improved symptomatically. Clinically appears to be resolved, repeat CXR ordered to be done 06/29/2022. [facility] Work Phone: 06-19-2022 Miscellaneous Notes Associated Problem(s): Pneumonia due to infectious organism 05/30/2022 CXR: Possible focus of new right lower lobe pneumonia. Large hiatal hernia again noted. Numerous vertebral compression fractures. Patient has completed treatment with Levaquin. O2 91% at rest in office today, patient reports O2 averaging 91-94 at home. Physical exam is reassuring today, patient reports that she is improved symptomatically. Clinically appears to be resolved, repeat CXR ordered to be done 06/29/2022. Associated Problem(s): Abdominal pain (Resolved 06/19/2022) Reported at prior visit; she denies any abdominal pain or GI symptoms at visit today. No further work-up indicated at this time. Associated Problem(s): Hypoxia (Resolved 06/19/2022) Hypoxia associated with pneumonia diagnosed 05/30/2022 Patient has completed treatment with Levaquin. O2 91% at rest in office today, patient reports O2 averaging 91-94 at home. Physical exam is reassuring today, patient reports that she is improved symptomatically. Repeat CXR ordered to be done 06/29/2022. documented in this encounter [facility] Work Phone: 06-19-2022 Evaluation + Plan note Associated Problem(s): Abdominal pain (Resolved 06/19/2022) Reported at prior visit; she denies any abdominal pain or GI symptoms at visit today. No further work-up indicated at this time. [facility] Work Phone: 06-19-2022 Evaluation + Plan note Associated Problem(s): Hypoxia (Resolved 06/19/2022) Hypoxia associated with pneumonia diagnosed 05/30/2022 Patient has completed treatment with Levaquin. O2 91% at rest in office today, patient reports O2 averaging 91-94 at home. Physical exam is reassuring today, patient reports that she is improved symptomatically. Repeat CXR ordered to be done 06/29/2022. [facility] Work Phone: 06-19-2022 History of Present illness Narrative Subjective Patient ID: Katherine Judge is a 87 y.o. female who presents for Follow-up (Lungs). HPI INTERIM HX: Patient seen 05/30/2022 in office with hypoxia. Hypoxia -Pulse Ox upon rooming was 86%, this dropped to 82% with ambulation. -O2 improved to 90-92% with 2L O2 via NC. -She does endorse some fatigue with exertion. -She denies any chest pain, edema, or palpitations. -Never smoker. No history of asthma or emphysema. Patient disinclined to go to the ER for evaluation at that time. Patient deferred supplemental O2 at that time. She states she does not have overt SOB and feels okay overall. She wishes to work this up as outpatient as this has been ongoing for some time. She assures me she will get home pulse ox for monitoring. Red flag symptoms reviewed, patient to go straight to ED with any chest pain, significant SOB, palpitations, or diaphoresis. CXR ordered 05/30/2022 Patient to meet with our agricultural agent today to get sooner follow-up with cardiology in the next 1-2 weeks, she is already established here at . Follow-up with me in 1 week. HTN -BP under good control -Due to patient being hypoxic, will increase Doxazosin from 1 mg to 2 mg daily. -Continue Metoprolol 25 BID and Lasix. 05/30/2022 CXR: Possible focus of new right lower lobe pneumonia. Large hiatal hernia again noted. Numerous vertebral compression fractures. 06/01/2022 CXR discussed with patient via telephone. She endorses increased fatigue, hypoxia. Patient treated with Levaquin due to allergy to multiple abxs and tolerating this well in the past. She was sent in 7 days of 500 mg due to stage 3b CKD, to stop after 5 days if better. Per 06/06/2022 telephone note: 06/04 BP 121/70 Pulse ox 91 06/05 BP 96/59 Pulse ox 91 am & 87 pm 06/06 BP 102/61 Pulse ox 94 am & 85 pm, she reports O2 came up with exercises. Patient seen 06/10/2022 for recheck of hypoxia/pneumonia, also endorsed some abdominal pain. -ABDOMINAL PAIN 3 day history of LLQ pain, seems to be improving since having BM after bout of constipation. She is on iron supplementation, unable to assess well for melena or hematochezia. She denies any distention or diarrhea. Hx of colitis s/p bowel resection, most recent 5 years ago. Follows with GI, Dr. Garcia, has not seen in 2 years. Exam today overall reassuring, patient mildly tender in descending/sigmoid colon region but no acute findings. Since symptoms improving after having BM after some constipation will plan to recheck in 7-10 days at follow-up visit. Patient aware that if she has any worsening of abdominal pain or develops fever, vomiting, diarrhea she is to go to the ER for evaluation. -HYPOXIA/PNEUMONIA 05/30/2022 CXR: Possible focus of new right lower lobe pneumonia. Large hiatal hernia again noted. Numerous vertebral compression fractures. Patient has completed treatment with Levaquin. O2 92% at rest in office today, patient reassuring Patient reports symptoms of colored secretions, cough, fatigue are improving at this time. Her exam was overall reassuring in office. Since improving do not feel additional antibiotic course is indicated at this time, however, incase symptoms starting getting worse instead of better or do not resolve I have printed additional course of antibiotics (Levaquin x 5 days) for patient to fill if needed. Will plan for repeat CXR in 3-4 weeks. Will have patient back in office in 7-10 days to reassess lungs and abdomen. Will plan to order her follow-up x-ray at her next check in 7-10 days on 06/19/2022 TODAY 06/19/2022 Patient states she is overall improved. Her breathing is doing much better, still some SOB with exertion but not as bad as when she was initially diagnosed. She reports O2 running 91-94 at home. Still having mild cough but this is also better. She states she is not having any abdominal pain, constipation or diarrhea at this time. She has BM every day or every other day. She denies any GI side effects from the Levaquin. Review of Systems Constitutional: Negative for appetite change. Respiratory: Positive for cough. Negative for shortness of breath. Cardiovascular: Negative for chest pain, palpitations and leg swelling. Gastrointestinal: Negative for abdominal pain. All other systems reviewed and are negative. Objective BP 113/66 (BP Location: Left arm, Patient Position: Sitting, BP Cuff Size: Adult) Pulse 61 Temp 36.7 C (98 F) Resp 16 Wt 47.9 kg (105 lb 8 oz) SpO2 91% BMI 24.08 kg/m Physical Exam Vitals and nursing note reviewed. Constitutional: General: She is not in acute distress. Appearance: Normal appearance. She is not toxic-appearing. HENT: Head: Normocephalic and atraumatic. Mouth/Throat: Lips: [place]. Mouth: Mucous membranes are moist. Eyes: Extraocular Movements: Extraocular movements intact. Pupils: Pupils are equal, round, and reactive to light. Cardiovascular: Rate and Rhythm: Normal rate and regular rhythm. Heart sounds: No murmur heard. No friction rub. No gallop. Pulmonary: Effort: Pulmonary effort is normal. No tachypnea. Breath sounds: Rales (few LLL) present. No wheezing or rhonchi. Comments: No egophony Abdominal: General: Bowel sounds are normal. There is no distension. Palpations: Abdomen is soft. There is no mass or pulsatile mass. Tenderness: There is no abdominal tenderness. There is no guarding or rebound. Musculoskeletal: Right lower leg: No edema. Left lower leg: No edema. Lymphadenopathy: Cervical: No cervical adenopathy. Skin: General: Skin is warm and dry. Neurological: General: No focal deficit present. Mental Status: She is alert and oriented to person, place, and time. Psychiatric: Mood and Affect: Mood normal. Behavior: Behavior normal. Assessment/Plan Problem List Items Addressed This Visit Nervous RESOLVED: Abdominal pain Reported at prior visit; she denies any abdominal pain or GI symptoms at visit today. No further work-up indicated at this time. Respiratory Pneumonia due to infectious organism 05/30/2022 CXR: Possible focus of new right lower lobe pneumonia. Large hiatal hernia again noted. Numerous vertebral compression fractures. Patient has completed treatment with Levaquin. O2 91% at rest in office today, patient reports O2 averaging 91-94 at home. Physical exam is reassuring today, patient reports that she is improved symptomatically. Clinically appears to be resolved, repeat CXR ordered to be done 06/29/2022. Relevant Orders XR chest 2 views RESOLVED: Hypoxia Hypoxia associated with pneumonia diagnosed 05/30/2022 Patient has completed treatment with Levaquin. O2 91% at rest in office today, patient reports O2 averaging 91-94 at home. Physical exam is reassuring today, patient reports that she is improved symptomatically. Repeat CXR ordered to be done 06/29/2022. Follow-up as previously scheduled for routine care. Call for sooner follow-up if needed. Time Spent Prep time on day of patient encounter: 5 minutes Time spent directly with patient, family or caregiver: 20 minutes Additional Time Spent on Patient Care Activities: 3 minutes Documentation Time: 5 minutes Other Time Spent: 0 minutes Total: 33 minutes Scribe Attestation By signing my name below, IYana Scribe attest that this documentation has been prepared under the direction and in the presence of Christ Gardiner DO. documented in this encounter [facility] Work Phone: 06-12-2022 History of Present illness Narrative 06/12/22: Mrs Judge is an 87 year old female with anemia, mitral regurg, rheumatic fever as a child, hypothyroidism, hypertension, hyperlipidemia, NE,m CAD, CABG and then an angioplasty after CABG, carotid artery disease, CVA, CKD, chronic colitis, osteoporosis, insomnia and peripheral neuropathy, here for an acute visit for complaints of shortness of breath. She was recently dx with pneumonia and she is currently on her second round of levaquin. Her weight is down 2 lbs since the initiation of lasix, however the patient states she has no appetite. She no longer has any lower extremity edema. Her GERD is much improved with Pepcid.03/12/22: Mrs Judge is an 86 year old female with anemia, mitral regurg, rheumatic fever as a child, hypothyroidism, hypertension, hyperlipidemia, NE,m CAD, CABG and then an angioplasty after CABG, carotid artery disease, CVA, CKD, chronic colitis, osteoporosis, insomnia and peripheral neuropathy, here for a routine follow up. She denies any complaints of chest pain, but does complain of shortness of breath with exertion. She denies dizziness, syncope, hypotension, headaches, unilateral weakness, or bleeding. She is tolerating her medications well with no side effects. Prior to this visit, she underwent an echo and a carotid duplex, which I have shared the preliminary results with her.08/14/2021:Mrs Judge is an 86 year old female with anemia, rheumatic fever as a child, hypothyroidism, hypertension, hyperlipidemia, NE,m CAD, CABG and then an angioplasty after CABG, carotid artery disease, CVA, CKD, chronic colitis, osteoporosis, insomnia and peripheral neuropathy, here for a routine follow up. She denies any complaints of chest pain, but does complain of shortness of breath with exertion. She denies dizziness, syncope, hypotension, headaches, unilateral weakness, or bleeding. She is complaining of increased bruising. Her home BPs have been very well controlled, averaging around 124/768.04/05/21: Mrs Judge is here for a routine follow up for her hypertension and CKD. Her home BPs have been eelvated (150/88) until yesterday, when she developed severe watery diarrhea. She is complaining of dehydration and not feeling well. 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 She denies any complaints of chest pain, shortness of breath, palpitations, lower extremity edema, dizziness or syncopal episodes. She reports elevated home BP readings. Today, her BP is 144/74. Her weight is up 5 lbs since December. [id number] Work Phone: 06-10-2022 Evaluation + Plan note Associated Problem(s): Benign essential hypertension BP is under good control, 130/62 in office today. Continue present regimen. T [facility] Work Phone: 06-10-2022 Miscellaneous Notes Associated Problem(s): Benign essential hypertension BP is under good control, 130/62 in office today. Continue present regimen. Associated Problem(s): Abdominal pain 3 day history of LLQ pain, seems to be improving since having BM after bout of constipation. She is on iron supplementation, unable to assess well for melena or hematochezia. She denies any distention or diarrhea. Hx of colitis s/p bowel resection, most recent 5 years ago. Follows with GI, Dr. Garcia, has not seen in 2 years. Exam today overall reassuring, patient mildly tender in descending/sigmoid colon region but no acute findings. Since symptoms improving after having BM after some constipation will plan to recheck in 7-10 days at follow-up visit. Patient aware that if she has any worsening of abdominal pain or develops fever, vomiting, diarrhea she is to go to the ER for evaluation. Associated Problem(s): Hypoxia 05/30/2022 CXR: Possible focus of new right lower lobe pneumonia. Large hiatal hernia again noted. Numerous vertebral compression fractures. Patient has completed treatment with Levaquin. O2 92% at rest in office today, patient reassuring Patient reports symptoms of colored secretions, cough, fatigue are improving at this time. Her exam was overall reassuring in office. Since improving do not feel additional antibiotic course is indicated at this time, however, incase symptoms starting getting worse instead of better or do not resolve I have printed additional course of antibiotics (Levaquin x 5 days) for patient to fill if needed. Will plan for repeat CXR in 3-4 weeks. Will have patient back in office in 7-10 days to reassess lungs and abdomen. Will plan to order her follow-up x-ray at her next check in 7-10 days. Associated Problem(s): Pneumonia due to infectious organism 05/30/2022 CXR: Possible focus of new right lower lobe pneumonia. Large hiatal hernia again noted. Numerous vertebral compression fractures. Patient has completed treatment with Levaquin. O2 92% at rest in office today, patient reassuring Patient reports symptoms of colored secretions, cough, fatigue are improving at this time. Her exam was overall reassuring in office. Since improving do not feel additional antibiotic course is indicated at this time, however, incase symptoms starting getting worse instead of better or do not resolve I have printed additional course of antibiotics (Levaquin x 5 days) for patient to fill if needed. Will plan for repeat CXR in 3-4 weeks. Will have patient back in office in 7-10 days to reassess lungs and abdomen. Will plan to order her follow-up x-ray at her next check in 7-10 days. documented in this encounter [facility] Work Phone: 06-10-2022 Evaluation + Plan note Associated Problem(s): Abdominal pain 3 day history of LLQ pain, seems to be improving since having BM after bout of constipation. She is on iron supplementation, unable to assess well for melena or hematochezia. She denies any distention or diarrhea. Hx of colitis s/p bowel resection, most recent 5 years ago. Follows with GI, Dr. Garcia, has not seen in 2 years. Exam today overall reassuring, patient mildly tender in descending/sigmoid colon region but no acute findings. Since symptoms improving after having BM after some constipation will plan to recheck in 7-10 days at follow-up visit. Patient aware that if she has any worsening of abdominal pain or develops fever, vomiting, diarrhea she is to go to the ER for evaluation. [facility] Work Phone: 06-10-2022 Evaluation + Plan note Associated Problem(s): Hypoxia 05/30/2022 CXR: Possible focus of new right lower lobe pneumonia. Large hiatal hernia again noted. Numerous vertebral compression fractures. Patient has completed treatment with Levaquin. O2 92% at rest in office today, patient reassuring Patient reports symptoms of colored secretions, cough, fatigue are improving at this time. Her exam was overall reassuring in office. Since improving do not feel additional antibiotic course is indicated at this time, however, incase symptoms starting getting worse instead of better or do not resolve I have printed additional course of antibiotics (Levaquin x 5 days) for patient to fill if needed. Will plan for repeat CXR in 3-4 weeks. Will have patient back in office in 7-10 days to reassess lungs and abdomen. Will plan to order her follow-up x-ray at her next check in 7-[address] [facility] Work Phone: 06-10-2022 Evaluation + Plan note Associated Problem(s): Pneumonia due to infectious organism 05/30/2022 CXR: Possible focus of new right lower lobe pneumonia. Large hiatal hernia again noted. Numerous vertebral compression fractures. Patient has completed treatment with Levaquin. O2 92% at rest in office today, patient reassuring Patient reports symptoms of colored secretions, cough, fatigue are improving at this time. Her exam was overall reassuring in office. Since improving do not feel additional antibiotic course is indicated at this time, however, incase symptoms starting getting worse instead of better or do not resolve I have printed additional course of antibiotics (Levaquin x 5 days) for patient to fill if needed. Will plan for repeat CXR in 3-4 weeks. Will have patient back in office in 7-10 days to reassess lungs and abdomen. Will plan to order her follow-up x-ray at her next check in 7-[address] [facility] Work Phone: 06-10-2022 History of Present illness Narrative Subjective Patient ID: Katherine Judge is a 87 y.o. female who presents for Follow-up (1 week fuv) and HYPOXIA. HPI PLAN FROM PRIOR VISIT: Patient seen 05/30/2022 in office with hypoxia. Hypoxia -Pulse Ox upon rooming was 86%, this dropped to 82% with ambulation. -O2 improved to 90-92% with 2L O2 via NC. -She does endorse some fatigue with exertion. -She denies any chest pain, edema, or palpitations. -Never smoker. No history of asthma or emphysema. Patient disinclined to go to the ER for evaluation at that time. Patient deferred supplemental O2 at that time. She states she does not have overt SOB and feels okay overall. She wishes to work this up as outpatient as this has been ongoing for some time. She assures me she will get home pulse ox for monitoring. Red flag symptoms reviewed, patient to go straight to ED with any chest pain, significant SOB, palpitations, or diaphoresis. CXR ordered 05/30/2022 Patient to meet with our agricultural agent today to get sooner follow-up with cardiology in the next 1-2 weeks, she is already established here at . Follow-up with me in 1 week. HTN -BP under good control -Due to patient being hypoxic, will increase Doxazosin from 1 mg to 2 mg daily. -Continue Metoprolol 25 BID and Lasix. 05/30/2022 CXR: Possible focus of new right lower lobe pneumonia. Large hiatal hernia again noted. Numerous vertebral compression fractures. 06/01/2022 CXR discussed with patient via telephone. She endorses increased fatigue, hypoxia. Patient treated with Levaquin due to allergy to multiple abxs and tolerating this well in the past. She was sent in 7 days of 500 mg due to stage 3b CKD, to stop after 5 days if better. Per 06/06/2022 telephone note: 06/04 BP 121/70 Pulse ox 91 06/05 BP 96/59 Pulse ox 91 am & 87 pm 06/06 BP 102/61 Pulse ox 94 am & 85 pm, she reports O2 came up with exercises. Today patient states she seems to be improving, her sputum is progressively become less in amount and less in yellow color. Her fatigue is also improving. However, she states she continues with cough. Her O2 was 92% upon rooming today. Additionally, patient endorses 3 day history of LLQ pain. She denies any diarrhea. She previous had bout of constipation but had large BM and has been regular since. She is on iron supplementation, unable to assess well for melena or hematochezia. She denies any distention. Overall abdominal pain is unchanged since onset. She states her appetite was never very much but does feels some decreased as of recent. Hx of colitis s/p bowel resection, most recent 5 years ago. Follows with GI, Dr. Garcia, has not seen in 2 years. Review of Systems Constitutional: Positive for appetite change. HENT: Positive for congestion and rhinorrhea. Respiratory: Positive for cough. Negative for shortness of breath. Cardiovascular: Negative for chest pain and palpitations. Gastrointestinal: Positive for abdominal pain. Negative for abdominal distention, constipation, diarrhea, nausea and vomiting. All other systems reviewed and are negative. Objective BP 130/62 (BP Location: Left arm, Patient Position: Sitting, BP Cuff Size: Adult) Pulse 66 Temp 36.7 C (98 F) Resp 14 Wt 47.8 kg (105 lb 6.4 oz) SpO2 92% BMI 24.06 kg/m Physical Exam Vitals and nursing note reviewed. Constitutional: General: She is not in acute distress. Appearance: Normal appearance. She is not toxic-appearing. Cardiovascular: Rate and Rhythm: Normal rate and regular rhythm. Heart sounds: No murmur heard. No friction rub. No gallop. Pulmonary: Effort: Pulmonary effort is normal. No tachypnea. Breath sounds: Rales present. No wheezing or rhonchi. Comments: Few rales and positive egophony right mid lung field Abdominal: General: Bowel sounds are normal. There is no distension. Palpations: Abdomen is soft. There is no mass or pulsatile mass. Tenderness: There is abdominal tenderness. There is no guarding or rebound. Comments: Mildly ttp descending colon/sigmoid colon area Musculoskeletal: Right lower leg: No edema. Left lower leg: No edema. Lymphadenopathy: Cervical: No cervical adenopathy. Skin: General: Skin is warm and dry. Neurological: General: No focal deficit present. Mental Status: She is alert and oriented to person, place, and time. Psychiatric: Mood and Affect: Mood normal. Behavior: Behavior normal. Assessment/Plan Problem List Items Addressed This Visit Nervous Abdominal pain 3 day history of LLQ pain, seems to be improving since having BM after bout of constipation. She is on iron supplementation, unable to assess well for melena or hematochezia. She denies any distention or diarrhea. Hx of colitis s/p bowel resection, most recent 5 years ago. Follows with GI, Dr. Garcia, has not seen in 2 years. Exam today overall reassuring, patient mildly tender in descending/sigmoid colon region but no acute findings. Since symptoms improving after having BM after some constipation will plan to recheck in 7-10 days at follow-up visit. Patient aware that if she has any worsening of abdominal pain or develops fever, vomiting, diarrhea she is to go to the ER for evaluation. Relevant Orders Follow Up In [facility] - PCP Respiratory Hypoxia 05/30/2022 CXR: Possible focus of new right lower lobe pneumonia. Large hiatal hernia again noted. Numerous vertebral compression fractures. Patient has completed treatment with Levaquin. O2 92% at rest in office today, patient reassuring Patient reports symptoms of colored secretions, cough, fatigue are improving at this time. Her exam was overall reassuring in office. Since improving do not feel additional antibiotic course is indicated at this time, however, incase symptoms starting getting worse instead of better or do not resolve I have printed additional course of antibiotics (Levaquin x 5 days) for patient to fill if needed. Will plan for repeat CXR in 3-4 weeks. Will have patient back in office in 7-10 days to reassess lungs and abdomen. Will plan to order her follow-up x-ray at her next check in 7-10 days. Relevant Medications levoFLOXacin (Levaquin) 500 mg tablet Other Relevant Orders Follow Up In [facility] - PCP Pneumonia due to infectious organism - Primary 05/30/2022 CXR: Possible focus of new right lower lobe pneumonia. Large hiatal hernia again noted. Numerous vertebral compression fractures. Patient has completed treatment with Levaquin. O2 92% at rest in office today, patient reassuring Patient reports symptoms of colored secretions, cough, fatigue are improving at this time. Her exam was overall reassuring in office. Since improving do not feel additional antibiotic course is indicated at this time, however, incase symptoms starting getting worse instead of better or do not resolve I have printed additional course of antibiotics (Levaquin x 5 days) for patient to fill if needed. Will plan for repeat CXR in 3-4 weeks. Will have patient back in office in 7-10 days to reassess lungs and abdomen. Will plan to order her follow-up x-ray at her next check in 7-10 days. Relevant Medications levoFLOXacin (Levaquin) 500 mg tablet Other Relevant Orders Follow Up [facility] - PCP Circulatory Benign essential hypertension BP is under good control, 130/62 in office today. Continue present regimen. Follow-up in 7-10 days for recheck breathing and abdominal pain. Call for sooner follow-up if needed. Time Spent Prep time on day of patient encounter: 5 minutes Time spent directly with patient, family or caregiver: 22 minutes Additional Time Spent on Patient Care Activities: 0 minutes Documentation Time: 5 minutes Other Time Spent: 0 minutes Total: 32 minutes Scribe Attestation By signing my name below, I, Tomas Montana attest that this documentation has been prepared under the direction and in the presence of Christ Gardiner DO. documented in this encounter [facility] Work Phone: 06-10-2022 Instructions Yana Case - 06/10/2022 1:30 PM EDT ABD PAIN 3 day history of LLQ pain, seems to be improving since having BM after bout of constipation. She is on iron supplementation, unable to assess well for melena or hematochezia. She denies any distention or diarrhea. Hx of colitis s/p bowel resection, most recent 5 years ago. Follows with GI, Dr. Garcia, has not seen in 2 years. Exam today overall reassuring, patient mildly tender in descending/sigmoid colon region but no acute findings. Since symptoms improving after having BM after some constipation will plan to recheck in 7-10 days at follow-up visit. Patient aware that if she has any worsening of abdominal pain or develops fever, vomiting, diarrhea she is to go to the ER for evaluation. PNEUMONIA Patient has completed treatment with Levaquin. O2 92% at rest in office today, patient reassuring Patient reports symptoms of colored secretions, cough, fatigue are improving at this time. Her exam was overall reassuring in office. Since improving do not feel additional antibiotic course is indicated at this time, however, incase symptoms starting getting worse instead of better or do not resolve I have printed additional course of antibiotics (Levaquin x 5 days) for patient to fill if needed. Will plan for repeat CXR in 3-4 weeks. Will have patient back in office in 7-10 days to reassess lungs and abdomen. Will plan to order her follow-up x-ray at her next check in 7-10 days. HTN BP is under good control, 130/62 in office today. Continue present regimen. documented in this encounter [facility] Work Phone: 06-01-2022 Evaluation + Plan note Associated Problem(s): Hypoxia Rec ER, pt declined Feels well and no pulm symptoms Pulse Ox upon rooming was 86%, this dropped to 82% with ambulation. O2 improved to 90-92% with 2L O2 via NC. She does endorse some fatigue with exertion. She denies any chest pain, edema, or palpitations. Never smoker. No history of asthma or emphysema. No cough, no wheeze, no difficulty breathing Patient disinclined to go to the ER for evaluation at this time. Patient defers supplemental O2 at this time. She states she does not have overt SOB and feels okay overall. She wishes to work this up as outpatient as this has been ongoing for some time. She assures me she will get home pulse ox for monitoring. Red flag symptoms reviewed, patient to go straight to ED with any chest pain, significant SOB, palpitations, or diaphoresis. CXR ordered today. Will have patient meet with our agricultural agent today to get sooner follow-up with cardiology in the next 1-2 weeks, she is already established here at . Follow-up with me in [address] [facility] Work Phone: 06-01-2022 Miscellaneous Notes Associated Problem(s): Hypoxia Rec ER, pt declined Feels well and no pulm symptoms Pulse Ox upon rooming was 86%, this dropped to 82% with ambulation. O2 improved to 90-92% with 2L O2 via NC. She does endorse some fatigue with exertion. She denies any chest pain, edema, or palpitations. Never smoker. No history of asthma or emphysema. No cough, no wheeze, no difficulty breathing Patient disinclined to go to the ER for evaluation at this time. Patient defers supplemental O2 at this time. She states she does not have overt SOB and feels okay overall. She wishes to work this up as outpatient as this has been ongoing for some time. She assures me she will get home pulse ox for monitoring. Red flag symptoms reviewed, patient to go straight to ED with any chest pain, significant SOB, palpitations, or diaphoresis. CXR ordered today. Will have patient meet with our agricultural agent today to get sooner follow-up with cardiology in the next 1-2 weeks, she is already established here at . Follow-up with me in 1 week. Associated Problem(s): Osteoporosis Due to hypoxia when rooming today will defer osteoporosis discussion until this work up is complete. Associated Problem(s): Benign essential hypertension BP under good control, however, due to patient being hypoxic, will increase Doxazosin from 1 mg to 2 mg daily. Continue Metoprolol 25 BID and Lasix. Addendum 23-23 Poss r lobe infiltrate Called pt Admits does have an occas cough and has been more tired than usual lately Pulse ox was between 90 and 99 today, and today actually feeling a little more energetic However, in light of increaesd fatigue, hypoxia, and slight infiltrate will treat w abx Pt allergic to multiple abx, has tolerated levaquine in past Will send in 7 d of 500 mg (pt's kidney fxn fluctuates, often stage 3b) Pt will stop abx after 5 d if feeling better, will complete all 7 if not Stop k while taking Call our office early next week if you need to be seen sooner than your scheduled appt in 2 weeks To ER if sx worsen on abx (pt monitoring sx and pulse ox at home) documented in this encounter [facility] Work Phone: 05-30-2022 Evaluation + Plan note Associated Problem(s): Osteoporosis Due to hypoxia when rooming today will defer osteoporosis discussion until this work up is complete. [facility] Work Phone: 05-30-2022 Evaluation + Plan note Associated Problem(s): Benign essential hypertension BP under good control, however, due to patient being hypoxic, will increase Doxazosin from 1 mg to 2 mg daily. Continue Metoprolol 25 BID and Lasix. [facility] Work Phone: 05-30-2022 History of Present illness Narrative Subjective Patient ID: Katherine Judge is a 87 y.o. female who presents for Follow-up (Bone density results-discuss meds). HPI OSTEOPOROSIS, worsening -- THIS WAS DEFERRED TODAY DUE TO ACUTE ISSUES WITH HYPOXIA, WILL DISCUSS AT LATER VISIT Has had GFR in 40s in the past (10/2021), most recent labs show GFR 60 in 05/2022. 02/2019 DEXA T-SCORES: Left femur neck: -2.7 Left femur total: -2.7 Spine: -0.6 05/2022 DEXA T-SCORES: Left femur neck: -3.0 Left femur total: -2.9 Spine: 0.2 HYPOXIA Pulse Ox upon rooming was 86%, this dropped to 82% with ambulation. O2 improved to 90-92% with 2L O2 via NC. Patient states that she feels tired and gets breathless with exertion or with walking fast. Last saw cardiology in 03/2022, cannot recall if breathing was like this then. She denies any chest pain, overt SOB, edema, or palpitations. No cough or wheezing. She states in the past when low on oxygen she would take a deep breath and wiggle her fingers and this would help. Never smoker. No history of asthma or emphysema. Does have history of allergies. Patient disinclined to go to the ER for evaluation at this time. She states she does NOT have overt SOB and feels okay. She wishes to work this up as outpatient. Review of Systems Constitutional: Positive for fatigue. Respiratory: Negative for cough and wheezing. Cardiovascular: Negative for chest pain, palpitations and leg swelling. All other systems reviewed and are negative. Objective Pulse 61 Temp 36.4 C (97.6 F) Resp 12 Wt 48.4 kg (106 lb 11.2 oz) SpO2 90% BMI 24.35 kg/m Physical Exam Vitals reviewed. Constitutional: General: She is not in acute distress. Appearance: Normal appearance. She is not toxic-appearing. Comments: No conversational dyspnea; speaking in full sentences. Neck: Thyroid: No thyroid mass or thyromegaly. Vascular: No hepatojugular reflux or JVD. Cardiovascular: Rate and Rhythm: Normal rate and regular rhythm. Heart sounds: Murmur (RT upper sternal border) heard. Systolic murmur is present with a grade of 1/6. No friction rub. No gallop. Pulmonary: Effort: Pulmonary effort is normal. Breath sounds: Normal breath sounds. No wheezing, rhonchi or rales. Abdominal: General: Bowel sounds are normal. There is no distension. Palpations: Abdomen is soft. There is no mass. Tenderness: There is no abdominal tenderness. There is no guarding. Musculoskeletal: General: Normal range of motion. Right lower leg: No edema. Left lower leg: No edema. Comments: Severe thoracic kyphosis. Lymphadenopathy: Cervical: No cervical adenopathy. Skin: General: Skin is warm and dry. Neurological: General: No focal deficit present. Mental Status: She is alert and oriented to person, place, and time. Psychiatric: Mood and Affect: Mood normal. Behavior: Behavior normal. Assessment/Plan Problem List Items Addressed This Visit Respiratory Hypoxia - Primary Pulse Ox upon rooming was 86%, this dropped to 82% with ambulation. O2 improved to 90-92% with 2L O2 via NC. She does endorse some fatigue with exertion. She denies any chest pain, edema, or palpitations. Never smoker. No history of asthma or emphysema. Patient disinclined to go to the ER for evaluation at this time. Patient defers supplemental O2 at this time. She states she does not have overt SOB and feels okay overall. She wishes to work this up as outpatient as this has been ongoing for some time. She assures me she will get home pulse ox for monitoring. Red flag symptoms reviewed, patient to go straight to ED with any chest pain, significant SOB, palpitations, or diaphoresis. CXR ordered today. Will have patient meet with our agricultural agent today to get sooner follow-up with cardiology in the next 1-2 weeks, she is already established here at . Follow-up with me in 1 week. Relevant Orders XR chest 2 views Circulatory Benign essential hypertension BP under good control, however, due to patient being hypoxic, will increase Doxazosin from 1 mg to 2 mg daily. Continue Metoprolol 25 BID and Lasix. Relevant Medications doxazosin (Cardura) 1 mg tablet CAD (coronary artery disease) Relevant Medications nitroglycerin (Nitrostat) 0.4 mg SL tablet Follow-up in 1 week for recheck breathing. Call for sooner follow-up if needed. Time Spent Prep time on day of patient encounter: 5 minutes Time spent directly with patient, family or caregiver: 25 minutes Additional Time Spent on Patient Care Activities: 5 minutes Documentation Time: 7 minutes Other Time Spent: 0 minutes Total: 42 minutes Scribe Attestation By signing my name below, IYana, Tomas attest that this documentation has been prepared under the direction and in the presence of Christ Gardiner DO. Addendum 06-01-22 Poss r lobe infiltrate Called pt Admits does have an occas cough and has been more tired than usual lately Pulse ox was between 90 and 99 today, and today actually feeling a little more energetic However, in light of increaesd fatigue, hypoxia, and slight infiltrate will treat w abx Pt allergic to multiple abx, has tolerated levaquine in past Will send in 7 d of 500 mg (pt's kidney fxn fluctuates, often stage 3b) Pt will stop abx after 5 d if feeling better, will complete all 7 if not Stop k while taking Call our office early next week if you need to be seen sooner than your scheduled appt in 2 weeks To ER if sx worsen on abx (pt monitoring sx and pulse ox at home) documented in this encounter [facility] Work Phone: 05-30-2022 Progress note Formatting of t his note might be different from the original. Addendum 06-01-22 Poss r lobe infiltrate Called pt Admits does have an occas cough and has been more tired than usual lately Pulse ox was between 90 and 99 today, and today actually feeling a little more energetic However, in light of increaesd fatigue, hypoxia, and slight infiltrate will treat w abx Pt allergic to multiple abx, has tolerated levaquine in past Will send in 7 d of 500 mg (pt's kidney fxn fluctuates, often stage 3b) Pt will stop abx after 5 d if feeling better, will complete all 7 if not Stop k while taking Call our office early next week if you need to be seen sooner than your scheduled appt in 2 weeks To ER if sx worsen on abx (pt monitoring sx and pulse ox at home) [facility] Work Phone: 04-15-2022 Evaluation + Plan note Associated Problem(s): Routine general medical examination at health care facility Vaccines and screenings reviewed DEXA ordered [facility] Work Phone: 04-15-2022 Miscellaneous Notes Associated Problem(s): Routine general medical examination at health care facility Vaccines and screenings reviewed DEXA ordered Associated Problem(s): Hypercholesterolemia Continue current regimen Repeat lipid panel ordered today. Associated Problem(s): Anemia in other chronic diseases classified elsewhere Repeat CBC ordered today Associated Problem(s): Chronic kidney disease, stage III (moderate) (CMS/HCC) Repeat BMP ordered today Associated Problem(s): GERD (gastroesophageal reflux disease) Continue Pantoprazole + Famotidine Famotidine refilled today Continue to follow-up with GI Associated Problem(s): Benign essential hypertension BP well-controlled, continue present regimen Associated Problem(s): CAD (coronary artery disease) Repeat lipid panel ordered today. Continue current regimen Continue heart healthy diet Continue exercise as tolerated Associated Problem(s): Aortic stenosis ECHO 03/2022 Continue to follow-up with cardiology. Associated Problem(s): Insomnia Stable, continue Mirtazapine 30 mg at bedtime, refilled today. Associated Problem(s): Osteoporosis Last DEXA 2019; repeat DEXA ordered today Previously disinclined to initiate bisphosphonate due to CKD, repeat blood work ordered today. May reconsider medical therapy if considerable change. Recommend weightbearing exercise such as walking 4-6 days per week 30 minutes on those days. Other strengthening exercises such as yoga and lifting weights can also be helpful. Take vitamin D at 1000 IU daily and calcium at 1500 mg daily. documented in this encounter [facility] Work Phone: 04-15-2022 Evaluation + Plan note Associated Problem(s): Hypercholesterolemia Continue current regimen Repeat lipid panel ordered today[facility] Work Phone: 04-15-2022 Evaluation + Plan note Associated Problem(s): Anemia in other chronic diseases classified elsewhere Repeat CBC ordered today [facility] Work Phone: 04-15-2022 Evaluation + Plan note Associated Problem(s): Chronic kidney disease, stage III (moderate) (CMS/HCC) Repeat BMP ordered today [facility] Work Phone: 04-15-2022 Evaluation + Plan note Associated Problem(s): GERD (gastroesophageal reflux disease) Continue Pantoprazole + Famotidine Famotidine refilled today Continue to follow-up with GI [facility] Work Phone: 04-15-2022 Evaluation + Plan note Associated Problem(s): Benign essential hypertension BP well-controlled, continue present regimen [facility] Work Phone: 04-15-2022 Evaluation + Plan note Associated Problem(s): CAD (coronary artery disease) Repeat lipid panel ordered today. Continue current regimen Continue heart healthy diet Continue exercise as tolerated [facility] Work Phone: 04-15-2022 Evaluation + Plan note Associated Problem(s): Aortic stenosis ECHO 03/2022 Continue to follow-up with cardiology. [facility] Work Phone: 04-15-2022 Evaluation + Plan note Associated Problem(s): Insomnia Stable, continue Mirtazapine 30 mg at bedtime, refilled today. [employer] [facility] Work Phone: 04-15-2022 Evaluation + Plan note Associated Problem(s): Osteoporosis Last DEXA 2019; repeat DEXA ordered today Previously disinclined to initiate bisphosphonate due to CKD, repeat blood work ordered today. May reconsider medical therapy if considerable change. Recommend weightbearing exercise such as walking 4-6 days per week 30 minutes on those days. Other strengthening exercises such as yoga and lifting weights can also be helpful. Take vitamin D at 1000 IU daily and calcium at 1500 mg daily. [facility] Work Phone: 04-15-2022 History of Present illness Narrative Subjective Reason for Visit: Katherine Judge is an 87 y.o. female here for a Medicare Wellness visit. Past Medical, Surgical, and Family History reviewed and updated in chart. Reviewed all medications by prescribing practitioner or clinical pharmacist (such as prescriptions, OTCs, herbal therapies and supplements) and documented in the medical record. HPI Patient Self Assessment of Health Status Patient Self Assessment: Fair Nutrition and Exercise Current Diet: Well Balanced Diet Adequate Fluid Intake: Yes Caffeine: Yes Exercise Frequency: Regularly Functional Ability/Level of Safety Cognitive Impairment Reported: No cognitive impairment reported by patient or family She states she is doing well overall. She exercises every morning when waking. She notes when using arms when walking she gets mildly SOB with exertion. No chest pain, no diaphoresis, no nausea. This is not new for her, at her baseline. She has someone that assists her with cleaning. Patient endorses history of acid reflux + hiatal hernia flaring more recently She is requesting refill of Famotidine, taking this with pantoprazole She notes some dysphagia with pills but not other times. She denies any pain with swallowing or choking. She is taking and tolerating all medications. She requests refill on Mirtazapine. She would like to be Full [facility] Medical POA is [facility] Patient Care Team: Christ Gardiner DO as PCP - General GIANNA Kingston as PCP - MSSP ACO Attributed Provider Review of Systems HENT: Positive for trouble swallowing. Respiratory: Negative for choking. All other systems reviewed and are negative. Objective Vitals: BP 108/60 (BP Location: Left arm, Patient Position: Sitting, BP Cuff Size: Adult) Pulse 63 Temp 36.2 C (97.1 F) (Temporal) Resp 14 Ht 1.41 m (4' 7.5) Wt 49.5 kg (109 lb 1.6 oz) SpO2 92% BMI 24.90 kg/m Physical Exam Constitutional: Appearance: Normal appearance. HENT: Head: Normocephalic. Eyes: Pupils: Pupils are equal, round, and reactive to light. Cardiovascular: Rate and Rhythm: Normal rate and regular rhythm. Heart sounds: Murmur heard. Systolic murmur is present with a grade of 3/6. No friction rub. No gallop. Abdominal: General: There is no distension. Palpations: Abdomen is soft. There is no mass. Tenderness: There is no abdominal tenderness. Musculoskeletal: Right lower leg: No edema. Left lower leg: No edema. Lymphadenopathy: Cervical: No cervical adenopathy. Skin: General: Skin is warm and dry. Neurological: Mental Status: She is alert. Psychiatric: Mood and Affect: Mood normal. Behavior: Behavior normal. Assessment/Plan Problem List Items Addressed This Visit Circulatory Aortic stenosis Overview Followed by cardiology ECHO 03/2022 LV 60-65%, impaired relaxation, [id number] prolapse of the P2 segment of the posterior leaflet, mild-to-mod centrally and laterally directed MR, mild-to-mod MR, mildly elevated RVSP. Current Assessment & Plan ECHO 03/2022 Continue to follow-up with cardiology. Benign essential hypertension Overview Historically well controlled on Doxazosin 1 mg + Metoprolol 25 mg BID She is also taking Lasix. Current Assessment & Plan BP well-controlled, continue present regimen Relevant Orders Follow Up In [facility] - PCP Basic Metabolic Panel CBC Magnesium Follow Up In [facility] - PCP Bilateral carotid artery stenosis Overview 03/2022 carotids: less than 50% stenosis bilaterally CAD (coronary artery disease) Overview S/p CABG Cholesterol well-controlled on Atorvastatin 10 mg She is also taking Isosorbide 60 mg + Plavix Current Assessment & Plan Repeat lipid panel ordered today. Continue current regimen Continue heart healthy diet Continue exercise as tolerated Relevant Orders Follow Up In [facility] - PCP Basic Metabolic Panel Lipid Panel CBC Follow Up In [facility] - PCP Digestive GERD (gastroesophageal reflux disease) Current Assessment & Plan Continue Pantoprazole + Famotidine Famotidine refilled today Continue to follow-up with GI Genitourinary Chronic kidney disease, stage III (moderate) (CMS/HCC) Current Assessment & Plan Repeat BMP ordered today Relevant Orders Follow Up In [facility] - PCP Musculoskeletal Osteoporosis Overview Lifestyle managed Current Assessment & Plan Last DEXA 2019; repeat DEXA ordered today Previously disinclined to initiate bisphosphonate due to CKD, repeat blood work ordered today. May reconsider medical therapy if considerable change. Recommend weightbearing exercise such as walking 4-6 days per week 30 minutes on those days. Other strengthening exercises such as yoga and lifting weights can also be helpful. Take vitamin D at 1000 IU daily and calcium at 1500 mg daily. Relevant Orders Follow Up [facility] - PCP Follow Up In [facility] - PCP Hematologic Anemia in other chronic diseases classified elsewhere Current Assessment & Plan Repeat CBC ordered today Other Hypercholesterolemia Current Assessment & Plan Continue current regimen Repeat lipid panel ordered today. Relevant Orders Follow Up In [facility] - PCP Routine general medical examination at health care facility Current Assessment & Plan Vaccines and screenings reviewed DEXA ordered Other Visit Diagnoses Healthcare maintenance - Primary Screening for osteoporosis Relevant Orders XR DEXA bone density Postmenopausal estrogen deficiency Relevant Orders XR DEXA bone density Scribe Attestation By signing my name below, Yana Cameron Scribe attest that this documentation has been prepared under the direction and in the presence of Christ Gardiner DO. documented in this encounter [facility] Work Phone: 08-14-2021 History of Present illness Narrative 08/14/2021:Mrs Judge is an 86 year old female with anemia, rheumatic fever as a child, hypothyroidism, hypertension, hyperlipidemia, NE,m CAD, CABG and then an angioplasty after CABG, carotid artery disease, CVA, CKD, chronic colitis, osteoporosis, insomnia and peripheral neuropathy, here for a routine follow up. She denies any complaints of chest pain, but does complain of shortness of breath with exertion. She denies dizziness, syncope, hypotension, headaches, unilateral weakness, or bleeding. She is complaining of increased bruising. Her home BPs have been very well controlled, averaging around 124/768.04/05/21: Mrs Judge is here for a routine follow up for her hypertension and CKD. Her home BPs have been eelvated (150/88) until yesterday, when she developed severe watery diarrhea. She is complaining of dehydration and not feeling well. 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 She denies any complaints of chest pain, shortness of breath, palpitations, lower extremity edema, dizziness or syncopal episodes. She reports elevated home BP readings. Today, her BP is 144/74. Her weight is up 5 lbs since December. [id number] [place] Work Phone: 08-14-2021 History of Present illness Narrative 08/14/2021:Mrs Judge is an 86 year old female with anemia, rheumatic fever as a child, hypothyroidism, hypertension, hyperlipidemia, NE,m CAD, CABG and then an angioplasty after CABG, carotid artery disease, CVA, CKD, chronic colitis, osteoporosis, insomnia and peripheral neuropathy, here for a routine follow up. She denies any complaints of chest pain, but does complain of shortness of breath with exertion. She denies dizziness, syncope, hypotension, headaches, unilateral weakness, or bleeding. She is complaining of increased bruising. Her home BPs have been very well controlled, averaging around 124/768.04/05/21: Mrs Judge is here for a routine follow up for her hypertension and CKD. Her home BPs have been eelvated (150/88) until yesterday, when she developed severe watery diarrhea. She is complaining of dehydration and not feeling well. 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 She denies any complaints of chest pain, shortness of breath, palpitations, lower extremity edema, dizziness or syncopal episodes. She reports elevated home BP readings. Today, her BP is 144/74. Her weight is up 5 lbs since December. [facility] Work Phone: 10-22-2020 Note Hospitalist Discharg e Summary Katherine Judge : 1935 Admit date: 10/13/2020 Discharge date: 10/22/2020 Admitting Physician: Liam Augustin MD Primary Care Physician: BENJY GARNETT MD Visit Status: Admission Code Status: Prior Discharge Diagnoses: Abdominal pain likely secondary to acute collitis/diarrhea - ? Ischemic-symptoms improved Lactic acidosis -normalized High procalcitonin in the setting of RADHA - improved Mild RADHA -improved Acute on chronic anemia - macrocytic Severe hypokalemia- replaced Hypomagnesemia- replaced ? Diagnosis Date ? CAD (coronary artery disease) ? Hypothyroidism ? Ischemic colitis (HCC) Procedures: None Hospital Course: Patient presents with complaints of abdominal pain likely due to acute colitis. Found to have lactic acidosis and RADHA. GI consulted and recommended stool studies and monitoring hemoglobin. Hemoglobin remained stable and patient symptoms improved. Did not require any GI intervention. Patient was subsequently discharged home with family. See discharge diagnoses list above and medication adjustments below in med rec.The patient is discharged in improved and stable condition. Consults: IP CONSULT TO GI IP CONSULT TO HOME CARE NEEDS Discharge Instructions: Diet: No diet orders on file Activity: as tolerated Recommended Outpatient Tests: Disposition: Patient discharged in stable condition to Home. Greater than 30 minutes spent discharging the patient and coming up with patient discharge plan. Vitals: BP (!) 145/66 Pulse 93 Temp 98 ?F (36.7 ?C) (Temporal) Resp 18 Ht 5' 2 (1.575 m) Wt 105 lb (47.6 kg) Comment: stated SpO2 94% BMI 19.20 kg/m? Pulse Ox: SpO2 Av.5 % Min: 93 % Max: 94 % Supplemental O2: O2 Flow Rate (L/min): 2 L/min General appearance: No apparent distress, appears stated age and cooperative with exam HEENT: Normal cephalic, atraumatic without obvious deformity. Pupils equal, round, and reactive to light. Extra ocular muscles intact. Conjunctivae/corneas clear. Neck: Supple, with full range of motion. No jugular venous distention. Trachea midline. No lymphadenopathy. Respiratory: Normal respiratory effort. Clear to auscultation, bilaterally without Rales/Wheezes/Rhonchi. Cardiovascular: Regular rate and rhythm with normal S1/S2 without murmurs, rubs or gallops. Abdomen: Soft, non-tender, non-distended with normal bowel sounds. No rebound or guarding. Musculoskeletal: No clubbing, cyanosis or edema bilaterally. Full range of motion without deformity. Skin: Skin color, texture, turgor normal. No rashes or lesions. Neurologic: Neurovascularly intact without any focal sensory/motor deficits. Cranial nerves: II-XII intact, grossly non-focal. Discharge Medications: Katherine Judge Home Medication Instructions JOE:[id number] Printed on:10/22/202105 Medication Information acetaminophen (TYLENOL) 500 MG tablet Take 500 mg by mouth every 6 hours as needed for Pain atorvastatin (LIPITOR) 10 MG tablet Take 10 mg by mouth daily buPROPion (WELLBUTRIN XL) 150 MG extended release tablet Take 150 mg by mouth every morning calcium carbonate (OSCAL) 500 MG TABS tablet Take 500 mg by mouth daily clopidogrel (PLAVIX) 75 MG tablet Take 75 mg by mouth daily docusate sodium (COLACE) 100 MG capsule Take 100 mg by mouth 2 times daily ferrous sulfate (IRON 325) 325 (65 Fe) MG tablet Take 325 mg by mouth daily (with breakfast) fluticasone (FLONASE) 50 MCG/ACT nasal spray 1 spray by Each Nostril route daily isosorbide mononitrate (IMDUR) 60 MG extended release tablet Take 60 mg by mouth daily metoprolol tartrate (LOPRESSOR) 50 MG tablet Take 50 mg by mouth 2 times daily montelukast (SINGULAIR) 10 MG tablet Take 10 mg by mouth nightly nitroGLYCERIN (NITROSTAT) 0.[address] 0.4 mg under the tongue every 5 minutes as needed for Chest pain up to max of 3 total doses. If no relief after 1 dose, call 911. pantoprazole (PROTONIX) 40 MG tablet Take 1 tablet by mouth 2 times daily tiZANidine (ZANAFLEX) 2 MG tablet Take 2 mg by mouth every 6 hours as needed Recommended Follow-up: Benjy Garnett MD Schedule an appointment as soon as possible for a visit in 1 week Hospital follow up Readmission Risk Risk of Unplanned Readmission: 0 Complexity of Follow up: [] Moderate Complexity: follow up within 7-14 calendar days (32332) [x] Severe Complexity: follow up within 7 calendar days (35453) Follow up Testing, Pending results or Referrals at Transitional Care Visit: [x] yes [] no Instructions to MA: Please call patient on day after discharge (must document patient contacted within 2 business days of discharge). Follow up questions for MA: 1. Did you get medications filled and taking them as instructed from discharge? 2. Are you following your discharge instructions from your hospital stay? 3. Please confirm patient is scheduled fo (more content not included)... [employer] 03-12-2020 History of Present illness Narrative [facility] LAST COMPLETED 03/12/2020Health maintenance:TDAP-- 06/2013Influenza-- 10/2019Shingrix-- completed per patientPneumonia series-- completedMammo-- graduatedPAP-- hysterectomy - graduatedCscope(45-75)-- graduatedLast Dexa (65+)-- 02/2019 (osteoporosis 2/3; normal 1/3 areas)Anxiety/Depression-- none foundPHQ-9:ALYSSA-7:Hepatitis C Screen-- none foundLipid Panel-- ratio: 3.6 in cardiac Score-- none found (CAD s/p CABG)Patient presents today for health management of mood, back pain, CKD, HTN, HLD/CAD.Would like ears checked today, feels hearing has decreased recently. No history of hearing problems or hearing aids.Does note one episode of chest heaviness, no associated diaphoresis, SOB. Has exerted herself several times since without any recurrence of cardiac symptoms.Taking Wellbutrin 150 mg daily for mood. Patient is taking and tolerating the medications as prescribed. Patient denies suicidal ideation. Patient reports good control on the current medication. Patient denies any symptoms of mehul such as pressured speech, impulsive purchases. Patient is satisfied with their current regimen and wishes to continue.PHQ-9 is 3 today.ALYSSA-7 is 0 today.Presently on Lasix 20 mg + Metoprolol 50 mg BID for hypertension. Also takes potassium 10 mg due to being on Lasix. Patient denies chest pain, shortness of breath with exertion, palpitations, lower extremity edema, headache, or dizziness. Medications are being taken and tolerated well. No side effects are reported. Patient is taking blood pressure outside of office and reports good control.Takes Atorvastatin 10 mg daily for cholesterol + Isosorbide 60 mg and Plavix anticoagulation for CAD s/p CABG.03/2020 lipid panel favorable with ratio 3.6Medications are being taken as directed and tolerated well. Patient denies any facial droop, sudden vision loss, weakness or numbness on one side of body. Patient denies chest pain, shortness of breath with exertion, palpitations, or symptoms of claudication.History of aortic stenosis and HFpEF03/2020 ECHO: LV systolic function is normal with EF 60-65%. Spectral Doppler shows an impaired relaxation pattern of left ventricular diastolic filling. The posterior leaflet of the mitral valve is thickened and redundant and has evidence of moderate prolapse. There is moderate laterally directed mitral regurgitation present. Moderate mitral valve regurgitation. Slightly elevated RVSP.Due to follow-up with cardiology in 1 year with repeat ECHO at that time.Osteoporosis and history vertebral fracture. Last DEXA done 02/2019 showed osteoporosis in 2/3 areas with other being normal. We deferred any treatment since patient was on longstanding med for osteoporosis in past and data shows clear improvement with 5 years treatment but possibly not more than that. In addition, since kidney function has markedly improved stopping this and other medications would just continue to hold medicine for osteoporosis and wear splint/back support if this provides relief. Stable lumbar spine on CT done 11/2019.Today, she reports back pain that is worse at end of day. Taking Tylenol and using lidocaine patches daily. Notes she is having issues with her hand as well.Takes Gabapentin 300 mg up to TID as needed for back pain + Tizanidine 2 mg BID PRN for back spasms. She is taking Tizanidine daily, once in AM and once in PM. No sedation.Patient recently saw GI for her bowel issues. Has been taking the Dicyclomine 3 times per day but can take up to 4.07/2020 GI EVAL (Dr. Justin Garcia): Based on review of your records, you do not have inflammatory bowel disease. I think your chronic bowel issues and lower abdominal pain are related to scar tissue and adhesions. It is possible that one of the blood vessels to the gut could be narrowed down, but this seems less likely given your symptoms are stable over the last 3 years. Recommend continued symptomatic management with Imodium or Miralax as needed. If symptoms progress or worsen in the past, then call my office at [phone] option 1 and we will pursue a special CT scan to look at the blood vessels. Follow-up on an as needed basis. Trial of Dicyclomine in place of Hyoscyamine. [facility] Work Phone: 03-12-2020 History of Present illness Narrative [facility] LAST COMPLETED 03/12/2020Health maintenance:TDAP-- 06/2013Influenza-- 10/2019Shingrix-- completed per patientPneumonia series-- completedMammo-- graduatedPAP-- hysterectomy - graduatedCscope(45-75)-- graduatedLast Dexa (65+)-- 02/2019 (osteoporosis 2/3; normal 1/3 areas)Anxiety/Depression-- none foundPHQ-9:ALYSSA-7:Hepatitis C Screen-- none foundLipid Panel-- ratio: 3.6 in T cardiac Score-- none found (CAD s/p CABG)Patient presents today for hospital follow-up.She is here with son Ganga.Patient lives in her apartment.Patient hospitalized at [facility] 10/14-10/22/2020 with diagnosis of ischemic colitis, RADHA (improved), lactic acidosis (resolved), high procalcitonin in setting of RADHA (improved), acute on chronic macrocytic anemia, severe hypokalemia (resolved), hypomagnesemia (resolved). Patient initially presented with abdominal pain felt to be likely due to acute colitis and was found to be in lactic acidosis and RADHA. GI consulted and recommended stool studies and monitoring hemoglobin. Hgb remained stable and patient symptoms improved, no GI intervention requiredDischarge instructions: Follow-up with established GIStop lidocaine cream, lidocaine patch, gabapentin, omeprazole (changed to Protonix), Lasix, potassiumPertinent testin10/22/2020 HGB 12.4 (normal), HCT 15.4, K+ 5.3 (H), Na 137 (normal). Creatinine 0.69, GFR >60. AST 49 (H)10/18/2020 Magnesium 2.1 (normal)10/17/2020 lactic acid 0.9 (normal 0.7-2.0), was 1.5 on Phosphorus 4.6 (H) (normal 2.5-4.5)10/14/2020 Blood cultures negative x 2, PCR stool panel negative, FIT positive for occult blood - no cscope per patient per GI note10/13/2020 CT A/P: Findings of colitis involving the transverse, descending, and proximal sigmoid colon. This could be infectious, inflammatory, or less likely ischemic in etiology. Recommend correlation with labs/history. Very large hiatal hernia containing the majority of the stomach and portions of the pancreas. Gastric antral wall thickening presenlty, correlate for possible gastritis, consider EGD. Borderal pancreatic duct dilation which may be due to chronic pancreatitis.10/24/2020 - POST DISCHARGE LABS: HGB 11.5, HCT 36.8. Normal WBC and PLTs. BMP with glucose 102, otherwise normal.Today patient states she has little to no strength. Also endorses urinary frequency. States that [facility] took specimen about 2-3 days ago. Notes that she is going every 2-3 hours, has been pushing fluids.States she only had 1 small bowel movement since yesterday, this is improved. Was given Bentyl for abdominal distress. Has 4 the day prior - these are small to medium.Appetite is a little better, states she did not like food in hospital.Also notes sleep is poor. No relief with Ativan in hospital and was unable to tolerate Trazodone.Does want ears check, states she had wax buildup last time and hearing is decreased.BP machine calibrated - NOT VALIDhers;127/75ours: 116/65hers 129/70CHRONIC ISSUES:-Mood, presently on Wellbutrin 150 mg daily.-HTN, presently on Lasix 20 mg + Metoprolol 50 mg BID. Also takes potassium 10 mg.-HLD/CAD s/p CABG, taking Atorvastatin 10 mg + Isosorbide 60 mg + Plavix. 03/2020 TC/HDL ratio 3.6-History of and HFpEF. 03/2020 ECHO: EF 60-65%, Moderate MR. Slightly elevated RVSP. (cardio f/u + repeat ECHO due in 1 year.-Osteoporosis and history vertebral fracture. 02/2019 DEXA osteoporosis 03/14, normal 02/11. Fosamax resumed 09/2020.-Back pain, taking Gabapentin 300 mg up to TID + Tizanidine 2 mg BID PRN for back spasms.Patient recently saw GI for her bowel issues. Has been taking the Dicyclomine 3 times per day but can take up to 4.07/2020 GI EVAL (Dr. Justin Garcia): Based on review of your records, you do not have inflammatory bowel disease. I think your chronic bowel issues and lower abdominal pain are related to scar tissue and adhesions. It is possible that one of the blood vessels to the gut could be narrowed down, but this seems less likely given your symptoms are stable over the last 3 years. Recommend continued symptomatic management with Imodium or Miralax as needed. If symptoms progress or worsen in the past, then call my office at [phone] option 1 and we will pursue a special CT scan to look at the blood vessels. Follow-up on an as needed basis. Trial of Dicyclomine in place of Hyoscyamine. [facility] Work Phone: 03-12-2020 History of Present illness Narrative [facility] LAST COMPLETED 03/12/2020Health maintenance:TDAP-- 06/2013Influenza-- 10/2019Shingrix-- completed per patientPneumonia series-- completedMammo-- graduatedPAP-- hysterectomy - graduatedCscope(45-75)-- graduatedLast Dexa (65+)-- 02/2019 (osteoporosis 2/3; normal 1/3 areas)Anxiety/Depression-- none foundPHQ-9:ALYSSA-7:Hepatitis C Screen-- none foundLipid Panel-- ratio: 3.6 in cardiac Score-- none found (CAD s/p CABG)Patient presents today for hospital follow-up.She is here with son Ganga.Patient lives in her apartment.Patient hospitalized at [facility] 10/14-10/22/2020 with diagnosis of ischemic colitis, RADHA (improved), lactic acidosis (resolved), high procalcitonin in setting of RADHA (improved), acute on chronic macrocytic anemia, severe hypokalemia (resolved), hypomagnesemia (resolved). Patient initially presented with abdominal pain felt to be likely due to acute colitis and was found to be in lactic acidosis and RADHA. GI consulted and recommended stool studies and monitoring hemoglobin. Hgb remained stable and patient symptoms improved, no GI intervention requiredDischarge instructions: Follow-up with established GIStop lidocaine cream, lidocaine patch, gabapentin, omeprazole (changed to Protonix), Lasix, potassiumPertinent testin10/22/2020 HGB 12.4 (normal), HCT 15.4, K+ 5.3 (H), Na 137 (normal). Creatinine 0.69, GFR >60. AST 49 (H)10/18/2020 Magnesium 2.1 (normal)10/17/2020 lactic acid 0.9 (normal 0.7-2.0), was 1.5 on Phosphorus 4.6 (H) (normal 2.5-4.5)10/14/2020 Blood cultures negative x 2, PCR stool panel negative, FIT positive for occult blood - no cscope per patient per GI note10/13/2020 CT A/P: Findings of colitis involving the transverse, descending, and proximal sigmoid colon. This could be infectious, inflammatory, or less likely ischemic in etiology. Recommend correlation with labs/history. Very large hiatal hernia containing the majority of the stomach and portions of the pancreas. Gastric antral wall thickening presenlty, correlate for possible gastritis, consider EGD. Borderal pancreatic duct dilation which may be due to chronic pancreatitis.10/24/2020 - POST DISCHARGE LABS: HGB 11.5, HCT 36.8. Normal WBC and PLTs. BMP with glucose 102, otherwise normal.Today patient states she has little to no strength. Also endorses urinary frequency. States that [facility] took specimen about 2-3 days ago. Notes that she is going every 2-3 hours, has been pushing fluids.States she only had 1 small bowel movement since yesterday, this is improved. Was given Bentyl for abdominal distress. Has 4 the day prior - these are small to medium.Appetite is a little better, states she did not like food in hospital.Also notes sleep is poor. No relief with Ativan in hospital and was unable to tolerate Trazodone.Does want ears check, states she had wax buildup last time and hearing is decreased.BP machine calibrated - NOT VALIDhers;127/75ours: 116/65hers 129/70CHRONIC ISSUES:-Mood, presently on Wellbutrin 150 mg daily.-HTN, presently on Lasix 20 mg + Metoprolol 50 mg BID. Also takes potassium 10 mg.-HLD/CAD s/p CABG, taking Atorvastatin 10 mg + Isosorbide 60 mg + Plavix. 03/2020 TC/HDL ratio 3.6-History of and HFpEF. 03/2020 ECHO: EF 60-65%, Moderate MR. Slightly elevated RVSP. (cardio f/u + repeat ECHO due in 1 year.-Osteoporosis and history vertebral fracture. 02/2019 DEXA osteoporosis 03/14, normal 02/11. Fosamax resumed 09/2020.-Back pain, taking Gabapentin 300 mg up to TID + Tizanidine 2 mg BID PRN for back spasms.Patient recently saw GI for her bowel issues. Has been taking the Dicyclomine 3 times per day but can take up to 4.07/2020 GI EVAL (Dr. Justin Garcia): Based on review of your records, you do not have inflammatory bowel disease. I think your chronic bowel issues and lower abdominal pain are related to scar tissue and adhesions. It is possible that one of the blood vessels to the gut could be narrowed down, but this seems less likely given your symptoms are stable over the last 3 years. Recommend continued symptomatic management with Imodium or Miralax as needed. If symptoms progress or worsen in the past, then call my office at [phone] option 1 and we will pursue a special CT scan to look at the blood vessels. Follow-up on an as needed basis. Trial of Dicyclomine in place of Hyoscyamine. [facility] Work Phone: 03-12-2020 History of Present illness Narrative [facility] LAST COMPLETED 03/12/2020Health maintenance:TDAP-- 06/2013COVID-- completed + booster 12/2020Influenza-- 10/2019Shingrix-- completed 04/2020 per patientPneumonia series-- completedMammo-- graduatedPAP-- hysterectomy - graduatedCscope(45-75)-- graduatedLast Dexa (65+)-- 02/2019 (osteoporosis 2/3; normal 1/3 areas)Anxiety/Depression-- HQ-9: 3GAD-7: 0Hepatitis C Screen-- none foundLipid Panel-- ratio: 3.6 in cardiac score-- none found (CAD s/p CABG)ECHO-- 03/2020 HFpEF 60-65%. Mod MR. Posterior leaflet mitral valve is thickened/redundant, evidence of moderate prolapse. Slightly elevated RVSP.Patient presents today for recheck anemia, mood, sleep, weight, and HTN. pt states she is feeling betterpt brought her bp machinein the morning her bp is all over the placemay vary a lot with sodium intake in frozen dinners, but they do not add salt to anything.appetite fairly good, eating ok, weight stablechecked pts home bp machieis validadvised pt to tighten cuff more since she has small arms - she will look for a smaller cuffpt machine 132/59our machine 128/71Received flu shot todayPatient answered all questions prior to immunization1: Have you ever had Guillain-Vermillion syndrome? (a viral illness resulting in neurological symptoms, including paralysis) (Yes/No): NO2: Have you received a shingles(Zoster), MMR, chickenpox (varicella), or any other live vaccines in the past 4 weeks? (Yes/No): NO3. Have you ever had an anaphylactic reaction to prior flu vaccines? (Yes/No): NOPatient was provided a copy of the current Influenza Vaccine Information Sheet Hypertension, BP was 96/62 in office at 10/2020 OV. In light of history of colitis, would recommend decreasing Metoprolol from 50 ot 25 mg twice daily. BP cuff was NOT valid today (10/2020), patient to get a new one for home monitoring. Presently on Lasix 20 mg + Metoprolol 25 mg BID. Also takes potassium 10 mg.Started on Mirtazapine 7.5 mg daily for insomnia, and low weight.Presently on Wellbutrin 150 mg daily for mood.Anemia, mild, HGB 11.5 in HRONIC ISSUES:-HLD/CAD s/p CABG, taking Atorvastatin 10 mg + Isosorbide 60 mg + Plavix. 03/2020 TC/HDL ratio 3.6-History of and HFpEF. 03/2020 ECHO: EF 60-65%, Moderate MR. Slightly elevated RVSP. (cardio f/u + repeat ECHO due in 1 year.-Osteoporosis and history vertebral fracture. 02/2019 DEXA osteoporosis 03/14, normal 02/11. Fosamax resumed 09/2020.-Back pain, taking Gabapentin 300 mg up to TID + Tizanidine 2 mg BID PRN for back spasms.Patient recently saw GI for her bowel issues. Has been taking the Dicyclomine 3 times per day but can take up to 4.07/2020 GI EVAL (Dr. Justin Garcia): Based on review of your records, you do not have inflammatory bowel disease. I think your chronic bowel issues and lower abdominal pain are related to scar tissue and adhesions. It is possible that one of the blood vessels to the gut could be narrowed down, but this seems less likely given your symptoms are stable over the last 3 years. Recommend continued symptomatic management with Imodium or Miralax as needed. If symptoms progress or worsen in the past, then call my office at [phone] option 1 and we will pursue a special CT scan to look at the blood vessels. Follow-up on an as needed basis. Trial of Dicyclomine in place of Hyoscyamine.needs help with cleaning, is cooking but is hard for herdoes not have meals on wheelshas heard of [facility], has not recentlyawaiting behavioral medical director through home care, has nursing. nursing told her social work was ordered, just mi mejia use frozen dinners for dinnerusually make breakfast and lunch, nothing elaborate (sandwiches,d fruit veggies)is having a bit of diarrhea sometimes dark but is on iron [facility] Work Phone: 06-09-2013 History of Present illness Narrative Health maintenance:TDAP-- 06/2013COVID-- 04/2020 + booster 12/2020 & 05/2021Influenza-- due fall Shingrix-- completed per patientPneumonia series-- completedMammo-- graduatedPAP-- hysterectomy - graduatedCscope(45-75)-- graduatedLast Dexa (65+)-- 02/2019 (osteoporosis 2/3; normal 1/3 areas) - DUEAnxiety/Depression-- HQ-9: 3GAD-7: 0Hepatitis C Screen-- none foundLipid Panel-- ratio: 2.9 in cardiac score-- none found (CAD s/p CABG)ECHO-- 03/2021 (LV EF 65-70%, impaired LV diastolic function, thickening and prolapse of the posterior MV leaflet with moderate laterally directed MR, moderate MR, slightly elevated RVSP, aortic valve sclerosis.Patient presents today for evaluation of multiple issues.#1 BLE edema, ogoing for some time now.Has not been wearing compression stockings.No SOB, no CP, no palpitations.#2 Concern for potassium levels#3 Abdominal cramping, prescribed Bentyl by GI about 1 year ago.Has been taking this 4 times per day since having flare.Thinks having cramping due to spasms.Cut down to 3 times per day since seemed to be improving but also needed to stretch prescription.Wants refill on medication today.#4 Not sleeping well.Cat wakes up her nightly for attention, this is main reason for waking.Sometimes insomnia due to pain.Tried melatonin, ineffectiveTried Lunesta, ineffectiveTried Trazodone, had adverse effects with this.Tried Ambien, worked fair.Currently taking 15 mg MirtazapineDid notice some improvement with sleep when starting this. She is also experiencing dry mouth but on multiple medications that can cause this.#5 Still having back discomfort, does keep up at night sometimes.She is taking a muscle relaxant, Gabapentin, and Tylenol before bedCHRONIC CONDITIONS:-Anemia, mild but chronic with patient's baseline HGB in 11-12s.03/2021 HGB 11.8-Mood, taking Wellbutrin 150 mg daily.-Insomnia + low weight, taking Mirtazapine 15 mg at bedtime.-HTN, taking Doxazosin 1 mg + Metoprolol 25 mg BIDAlso taking Lasix daily.-HLD/CAD s/p CABG, taking Atorvastatin 10 mg + Isosorbide 60 mg + Plavix.03/2021 lipid panel favorable with TC/HDL ratio 2.9-History of and HFpEF. 03/2020 ECHO: EF 60-65%, Moderate MR. Slightly elevated RVSP. (cardio f/u + repeat ECHO due in 1 year.-Osteoporosis and history vertebral fracture.02/2019 DEXA osteoporosis 2/3, normal 02/11.-Back pain, taking Gabapentin 300 mg up to TID + Tizanidine 2 mg BID PRN for back spasms. -[facility] Work Phone: Chief complaint Narrative - Reported evaluation of multiple issues. [facility] Work Phone: Consult note Note Date/Time July 25, 2024 5:10pm [facility] Medical Records Department [address] [place] [address] Consultation 07/25/24 1706 MR#: [id number] Acct: [id number] Name: KATHERINE JUDGE Rep #:[id number] : 1935 89 From: Thanh Mclaughlin DO PCP: Dr. Kam Ocampo Sr., DO Status:R EG ER Location: ED Assessment & Plan Assessment/Plan (1) Closed intertrochanteric fracture of right hip: QUALIFIERS: Encounter type: initial encounter Fracture alignment:displaced Qualified Code(s): S72.141A - Displaced intertrochanteric fracture ofright femur, initial encounter for closed fracture PLAN: Plan Pleasant 89-year-old female frail ground-level fall community ambulator. Sustained right hip intertrochanteric femur fracture History of right total knee arthroplasty Will obtain right femur x-ray Plan for OR 07/26/2024 afternoon if medically cleared right femur cephalomedullary fixation Hold anticoagulant Multiple drug allergies vancomycin ordered preop within 1 hour prior to incision TXA ordered preop HPI Consult Data Date of Consult: 07/25/24 HPI Narrative HPI Narrative: KATHERINE JUDGE, is a 89 F who presents after ground-level fall onto right hip. She immediately had pain and inability ambulate x-rays taken the emergency room department demonstrated a intertrochanteric fracture with lesser trochanteric displacement. Of note she did have prior right total knee arthroplasty many years ago with Dr. Malcom Herron in [facility]. She is on Plavix [facility] Medical History (Updated 07/25/24 @ 17:[address] Thanh Mclaughlin, ) Polyneuropathy PVD (peripheral vascular disease) Osteoporosis Hypothyroidism GERD (gastroesophageal reflux disease) Hypertensive heart and chronic kidney disease stage 3 Anxiety Asthma Sleep apnea COPD (chronic obstructive pulmonary disease) Gout CKD (chronic kidney disease) stage 3, GFR 30-59 ml/min Major depressive disorder CHF (congestive heart failure) Allergy/AdvReac Type Severity Reaction Status Date / Time cephalexin Allergy PT UNSURE Verified 07/25/24 14:52 OF REACTION clarithromycin Allergy PT UNSURE Verified 07/25/24 14:52 OF REACTION clindamycin Allergy PT UNSURE Verified 07/25/24 14:52 OF REACTION erythromycin base Allergy PT UNSURE Verified 07/25/24 14:52 OF REACTION eszopiclone Allergy PT UNSURE Verified 07/25/24 14:52 OF REACTION Fish Containing Products Allergy PT UNSURE Verified 07/25/24 14:52 (seafood) OF REACTION fish derived Allergy PT UNSURE Verified 07/25/24 14:52 OF REACTION lincomycin Allergy PT UNSURE Verified 07/25/24 14:52 OF REACTION lorazepam Allergy PT UNSURE Verified 07/25/24 14:52 OF REACTION mushroom (mushrooms) Allergy PT UNSURE Verified 07/25/24 14:52 OF REACTION NSAIDS (Non-Steroidal Allergy PT UNSURE Verified 07/25/24 14:52 Anti-Inflamma OF REACTION Penicillins Allergy PT UNSURE Verified 07/25/24 14:52 OF REACTION rofecoxib Allergy PT UNSURE Verified 07/25/24 14:52 OF REACTION salicylates Allergy PT UNSURE Verified 07/25/24 14:52 OF REACTION temazepam Allergy PT UNSURE Verified 07/25/24 14:52 OF REACTION Tetracyclines Allergy PT UNSURE Verified 07/25/24 14:52 OF REACTION trazodone Allergy PT UNSURE Verified 07/25/24 14:52 OF REACTION Surgical History (Updated 07/25/24 @ 14:[address] Jacobo Moya, ) History of cataract surgery History of lysis of adhesions Hx of hysterectomy Hx of total knee replacement Presence of aortocoronary bypass graft Social History Smoking Status: Former smoker Physical Exam Const alert, oriented x3 and no apparent distress Constitutional Narrative: She is seen with her son who is her power of workers compensation defense attorney Appearance: cooperative Extremity Extremity Narrative: Exquisitely positive logroll, she does have a scar on her knee from her prior knee replacement surgery it is large. She is neurovascular intact although she does have chronic neuropathy of her foot. Her compartments are soft palpable pedal pulses intact sensation to light touch she is able to wiggle toes and ankle. Lab / Micro Data 07/25/24 14:35 07/25/24 14:35 Labs: Laboratory Results - last 24 hr 07/25/24 14:35: WBC 7.6, RBC 3.28 L, Hgb 10.7 L, Hct 31.6 L, MCV 96.3, MCH 32.6 H, MCHC 33.9, RDW Std Deviation 49.4 H, RDW Coeff of Tamera 14.1, Plt Count 181, MPV 9.1, Immature Gran % (Auto) 0.400, Neut % (Auto) 69.2, Lymph % (Auto) 22.9, [place] % (Auto) 6.2, Eos % (Auto) 0.9, Baso % (Auto) 0.4, Absolute Neuts (auto) 5.3, Absolute Lymphs (auto) 1.75, Nucleated RBC % 0, PT 13.0, INR 1.0, APTT 27.1, Sodium 134, Potassium 5.0, Chloride 98, Carbon Dioxide 26.5, Anion Gap 9, BUN 13, Creatinine 0.92, Est GFR (MDRD) Non-Af 60, BUN/Creatinine Ratio 13.5, Glucose 126 H, Calcium 8.8 Imaging Radiology Impression Hip/Pelvis X-Ray 07/25/24 15:10 IMPRESSION: Nondisplaced right intertrochanteric fracture of the proximal right femur. Reading Location: [facility] Chest X-Ray 07/25/24 15:15 IMPRESSION: Cardiomegaly and vascular congestion with atelectasis at the lung bases. Reading Location: [facility] 07/25/24 1710 <Electronically signed by Thanh Mclaughlin DO> Cosigner Signature (if applicable): CC: Dr. Kam Ocampo Sr., ~ Signed [facility] Work Phone: Evaluation note* Diagnosis Hypoxia- Primary Hypoxemia Coronary artery disease without angina pectoris, unspecified vessel or lesion type, unspecified whether [place] or transplanted heart Benign essential hypertension Essential hypertension, benign Pneumonia of right lung due to infectious organism, unspecified part of lung documented in this encounter [facility] Work Phone: Evaluation note* Diagnosis Hypoxia Hypoxemia Benign essential hypertension Essential hypertension, benign Pneumonia of right lung due to infectious organism, unspecified part of lung Abdominal pain, unspecified abdominal location documented in this encounter [facility] Work Phone: Evaluation note* Diagnosis Hypoxia Hypoxemia Pneumonia of right lower lobe due to infectious organism Abdominal pain, unspecified abdominal location documented in this encounter [facility] Work Phone: Evaluation note* Diagnosis Benign essential hypertension- Primary Essential hypertension, benign Osteoporosis, unspecified osteoporosis type, unspecified pathological fracture presence Coronary artery disease without angina pectoris, unspecified vessel or lesion type, unspecified whether [place] or transplanted heart Stage 3a chronic kidney disease (CMS/HCC) Hypercholesterolemia Pure hypercholesterolemia Allergic rhinitis, unspecified seasonality, unspecified trigger Multiple allergies Lower abdominal pain Abdominal pain, other specified site Anemia in other chronic diseases classified elsewhere documented in this encounter [facility] Work Phone: Evaluation note* Diagnosis 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 Abdominal pain, generalized Constipation, unspecified constipation type [facility]* Diagnosis Healthcare maintenance- Primary Osteoporosis, unspecified osteoporosis type, unspecified pathological fracture presence Screening for osteoporosis Special screening for osteoporosis Postmenopausal estrogen deficiency Benign essential hypertension Essential hypertension, benign Coronary artery disease without angina pectoris, unspecified vessel or lesion type, unspecified whether [place] or transplanted heart Gastroesophageal reflux disease, unspecified whether esophagitis present Stage 3a chronic kidney disease Bilateral carotid artery stenosis Occlusion and stenosis of carotid artery without mention of cerebral infarction Aortic valve stenosis, etiology of cardiac valve disease unspecified Anemia in other chronic diseases classified elsewhere Hypercholesterolemia Pure hypercholesterolemia Routine general medical examination at health care facility Routine general medical examination at a health care facility documented in this encounter [facility] Work Phone: Evaluation note* Diagnosis Onset Date Resolution Status Admit Date Closed intertrochanteric fra cture of right hip acute July 25, 2024 4:51pm Elevated blood pressure reading acut e July 25, 2024 4:51pm Fall acute July 25 4:51pm [facility] Work Phone: History of Present illness Narrative* h/o C. diff * In office, the patient reports she has been having episodes of diarrhea and LLQ abdominal pain. Shewill take Hyoscyamine with some improvement. She has been having gastrointestinal issues for may years and had multiple surgeries. She has extensive history of adhesions. She has had recurrent bowel o bstructions. She is on Plavix. No current pain. She has a BM multiple times per day but sometimes goes a few days without a BM. She has not tried a fiber supplement. She reports multiple prior EGD and colonoscopies with no specific findings. No IBD. She did a fecal calprotectin that was elevated inborderline level. Patient does not wish to have a repeat colonoscopy. * PSurgHx: * -Hysterectomy * FamHx: No esophagus, stomach, or colon cancer * SocHx: Denies smoking, alcohol, or illicits [facility]: History of Present illness Narrative* h/o C. diff, and OA being evaluated as a new patient for abdominal pain. * In office, the patient reports she has been having episodes of diarrhea and LLQ abdominal pain. Shewill take Hyoscyamine with some improvement. She has been having gastrointestinal issues for may years and had multiple surgeries. She has extensive history of adhesions. She has had recurrent bowel o bstructions. She is on Plavix. No current pain. She has a BM multiple times per day but sometimes goes a few days without a BM. She has not tried a fiber supplement. She reports multiple prior EGD and colonoscopies with no specific findings. No IBD. She did a fecal calprotectin that was elevated inborderline level. Patient does not wish to have a repeat colonoscopy. 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 recurrent diff, and OA being evaluated as a new patient for chronicLLQ abdominal pain and erratic bowel habits. * In office, the patient reports she has been having episodes of diarrhea and LLQ abdominal pain. Shewill take Hyoscyamine with some improvement. She has been having gastrointestinal issues for june years and had multiple surgeries. She has extensive history of adhesions. She has had recurrent bowel o bstructions. She is on Plavix. No current pain. She has a BM multiple times per day but sometimes goes a few days without a BM. She has not tried a fiber supplement. She reports multiple prior EGD and colonoscopies with no specific findings. No IBD. She did a fecal calprotectin that was elevated inborderline level. Patient does not wish to have a repeat colonoscopy. * PSurgHx: * -Hysterectomy * -Ex-lap s/p extensive ANDREIA x 2 * -Right hemicolectomy with ileocolonic anastomosis * -2v CABG * FamHx: No esophagus, stomach, or colon cancer * SocHx: Denies smoking, alcohol, or illicits * Prior Endoscopy: * -Colonoscopy (12/2009): Fair prep, incomplete due to severe long stricture in left colon not traversable (biopsies of stricture showed chronic ischemic colitis), diverticulosis, small IH, otherwise normal colon. * -Colonoscopy (12/2009): Fair prep, sigmoid diverticulosis, incomplete due to non-traversable sigmoid stricture, small IH, decreased rectal tone, otherwise normal colon. * -EGD (12/2009): Large 10 cm paraesophageal hernia with Neri's erosions, erosive gastritis (H. pylori -), normal duodenum. * -Colonoscopy (09/2008): Poor prep, sigmoid diverticulosis, otherwise normal colon (sigmoid and rectal biopsies showed chronic ischemic colitis, other segmental colonic biopsies normal). 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 She denies any complaints of chest pain, shortness of breath, palpitations, lower extremity edema, di zziness or syncopal episodes. Her only complaint is abdominal pain before having a bowel movement and cramping after a bowel movement. 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 She denies any complaints of chest pain, shortness of breath, palpitations, lower extremity edema, di zziness or syncopal episodes. She reports elevated home BP readings. Today, her BP is 144/74. Her weight is up 5 lbs since December.[facility] Work Phone: History of Present illness Narrative* The patient is being seen for the subsequent annual wellness visit. * Past Medical, Surgical and Family History: reviewed and updated in chart. * Medications and Supplements: Review of all medications by a prescribing practitioner or clinical pharmacist (such as prescriptions, OTCs, herbal therapies and supplements) documented in the medical record. * No, the patient is not using opioids. * Patient Self Assessment of Health Status: fair. * Tobacco use: Non-User * Alcohol use: Non-User * Illicit drug use: Non-User * Current diet: Heart Healthy Diet, does consume adequate fluids and does consume caffeine. * Exercise Frequency: infrequently. * Depression/Suicide Screening: Patient has a current diagnosis of depression . * During the past 2 weeks, the patient has not felt down, depressed or hopeless. * During the past 2 weeks, the patient has not felt little interest or pleasure in doing things. * Hearing Impairment: none. * Cognitive Impairment: No cognitive impairment observed. * Bathing: performs independently. * Dressing: performs independently. * Walking: performs independently. * Managing Finances: needs assistance. * Shopping: performs independently. * Managing Medications: performs independently. * Housework / Basic Home Maintenance: needs assistance. * Falls Risk Screening:Leigh MURPHY has not fallen in the last 6 months. * Home safety risk factors: none. * Advance directives:. Advance Care Planning discussed and documented in the medical record, patient did not wish or was not able to name a surrogate decision maker or provide an advance care plan. * Health maintenance: * TDAP-- 06/2013 * Influenza-- 12/2020 * Pneumonia series-- completed * Shingrix-- had both done per pt report * Mammo-- declines * PAP-- graduated * Last Dexa (65+)-- 02/2019 (osteoporosis 2/3; normal 1/3 areas) * Last c scope - declines * Uses a cane rarely * She exercies daily-one from PT, walks daily at stores independently * Wears corrective lenses * HTN * Presently on Lasix 20 mg + Metoprolol 50 mg BID for hypertension. Also takes potassium 10 mg due tobeing on Lasix. * Patient denies chest pain, shortness of breath with exertion, palpitations, lower extremity edema, headache, or dizziness. * Medications are being taken and tolerated well. * No side effects are reported. * Patient is taking blood pressure outside of office and reports good control. * Last kidney function check was 03/2021 (stable) * Agronomy Manager: (last seen 03/2021), follow up in 6mo * HLD * Last lipid panel was wnl as of 03/2021 * Takes Atorvastatin 10 mg daily for cholesterol + Isosorbide 60 mg and Plavix anticoagulation for CAD. * Medications are being taken as directed and tolerated well. * Patient denies any facial droop, sudden vision loss, weakness or numbness on one side of body. * Patient denies chest pain, shortness of breath with exertion, palpitations, or symptoms of claudication. * Takes Gabapentin 300 mg up to TID as needed for back pain + Tizanidine 2 mg BID PRN for back spasms. She is taking Tizanidine daily, once in AM and once in PM. No sedation. -[facility] Work Phone: History of Present illness NarrativeMrs Judge is an 87 year old female with anemia, mitral regurg, rheumatic fever as a child, hypothyroidism, hypertension, hyperlipidemia, NE,m CAD, CABG and then an angioplasty after CABG, carotid artery disease, CVA, CKD, chronic colitis, osteoporosis, insomnia and peripheral neuropathy, here fora routine follow up. She reports a 7 lbs weight loss since I saw her last. She is having frequent ep isodes of diarrhea but denies any bleeding. Her home BPs average 130/70. She denies any complaints of chest pain, shortness of breath, palpitations, dizziness, lower extremity edema or any recent falls. She continues to take plavix 3 times a week and continues to complain of bruising . Today she has a bruise to her right cheek, but denies any trauma.[facility] [place] Work Phone: History of Present illness NarrativeMrs Judge is an 87 year old female with anemia, mitral regurg, rheumatic fever as a child, hypothyroidism, hypertension, hyperlipidemia, NE,m CAD, CABG and then an angioplasty after CABG, carotid artery disease, CVA, CKD, chronic colitis, osteoporosis, insomnia and peripheral neuropathy, here more acute visit for a syncopal event. She reports that she was admitted to the hospital for pneumonia with respiratory failure for 7 days. She is now under going rehab in [facility] and is now on continuous O2. She reports that after urinating, she had a syncopal episode. She is unsurewhat caused this syncopal episode. She denies any complaints of chest pain, lower extremity edema or weight gain. She does complain of shortness of breath and weight loss since her hospitalization. [facility] [place] Work Phone: History of Present illness NarrativeMrs Judge is an 87 year old female with anemia, mitral regurg, rheumatic fever as a child, hypothyroidism, hypertension, hyperlipidemia, NE,m CAD, CABG and then an angioplasty after CABG, carotid artery disease, CVA, CKD, chronic colitis, osteoporosis, insomnia and peripheral neuropathy, here fora routine follow up. She reports a 7 lbs weight loss since I saw her last. She is having frequent ep isodes of diarrhea but denies any bleeding. Her home BPs average 130/70. She denies any complaints of chest pain, shortness of breath, palpitations, dizziness, lower extremity edema or any recent falls. She continues to take plavix 3 times a week and continues to complain of bruising . Today she has a bruise to her right cheek, but denies any trauma.[facility] Work Phone: Reason for referral (narrative)* Consultation (Routine) - Authorized Specialty Diagnoses / Procedures Referred By Contac t Referred To Contact Primary Care Diagnoses Hypoxia Benign essential hypertension Procedures Follow Up In Advanced Primary Care - PCP Christ Gardiner, [address] [facility] [place] [address] Referral ID Status Reason Start Date Expiration Date V isits Requested Visits Authorized [id number] Authorized 06/01/2022 11/28/2022 1 1 * Imaging (Routine) - Authorized Specialty Diagnoses / Procedures Referred By Contac t Referred To Contact Radiology Diagnoses Hypoxia Procedures XR chest 2 views Christ Gardiner DO [address] [facility] [place] [address] Referral ID Status Reason Start Date Expiration Date Visits Requested Visits Authorized [id number] Authorized Perform Procedure 05/30/2022 11/26/[address] [facility] Work Phone: Renets for referral (narrative)* Consultation (Routine) - Authorized Specialty Diagnoses / Procedures Referred By Contac t Referred To Contact Primary Care Diagnoses Hypoxia Pneumonia of right lower lobe due to infectious organism Abdominal pain, unspecified abdominal location Procedures Follow Up In Advanced Primary Care - PCP Christ Gardiner DO [address] [facility], [facility] [address] [place] [address] Referral ID Status Reason Start Date Expiration Date V isits Requested Visits Authorized [id number] Authorized 06/10/2022 12/07/[address] [facility] Work Phone: Recdbg for referral (narrative)* Consultation (Routine) - Authorized Specialty Diagnoses / Procedures Referred By Contac t Referred To Contact Gastroenterology Diagnoses Lower abdominal pain Procedures DE OFFICE/OUTPATIENT NEW HIGH MDM 60-74 MINUTES Christ Gardiner DO [address] [facility] [facility], [facility] [address] [place] [address] Referral ID Status Reason Start Date Expiration Date Visits Requested Visits Authorized [id number] Authorized Specialty Services Required 10/07/2022 04/05/2023 1 1 * Consultation (Routine) - Authorized Specialty Diagnoses / Procedures Referred By Contac t Referred To Contact Allergy Diagnoses Multiple allergies Procedures DE OFFICE/OUTPATIENT NEW HIGH MDM 60-74 MINUTES Christ Gardiner DO [address] [facility], [place] [address] Referral ID Status Reason Start Date Expiration Date Visits Requested Visits Authorized [id number] Authorized Specialty Services Required 10/07/2022 04/05/[address] [facility] Work Phone: Reason for referral (narrative)* Consultation (Routine) - Authorized Specialty Diagnoses / Procedures Referred By Contac t Referred To Contact Primary Care Diagnoses Osteoporosis, unspecified osteoporosis type, unspecified pathological fracture presence Benign essential hypertension Coronary artery disease without angina pectoris, unspecified vessel or lesion type, unspecified whether [place] or transplanted heart Stage 3a chronic kidney disease Hypercholesterolemia Procedures Follow Up In Advanced Primary Care - PCP Christ Gardiner DO [address] [facility], [place] [address] Referral ID Status Reason Start Date Expiration Date V isits Requested Visits Authorized [id number] Authorized 04/15/2022 10/12/2022 1 1 * Consultation (Routine) - Authorized Specialty Diagnoses / Procedures Referred By Contac t Referred To Contact Primary Care Diagnoses Osteoporosis, unspecified osteoporosis type, unspecified pathological fracture presence Benign essential hypertension Coronary artery disease without angina pectoris, unspecified vessel or lesion type, unspecified whether [place] or transplanted heart Procedures Follow Up In Advanced Primary Care - PCP Christ Gardiner DO [address] [facility], [facility] [address] [place] [address] Referral ID Status Reason Start Date Expiration Date V isits Requested Visits Authorized [id number] Authorized 04/15/2022 10/12/2022 1 1 * Imaging (Routine) - Authorized Specialty Diagnoses / Procedures Referred By Naomi t Referred To Contact Radiology Diagnoses Screening for osteoporosis Postmenopausal estrogen deficiency Procedures XR DEXA bone density Christ Gardiner DO [address] [facility], [place] [address] [place] [address] Referral ID Status Reason Start Date Expiration Date Visits Requested Visits Authorized [id number] Authorized Perform Procedure 04/15/2022 10/12/[address] [facility] Work Phone: Reason for referral (narrative)No reason for referral information [facility]: Summary Purpose Family History Unknown Family Member Name Dates Details Family history of Heart Dise ase(V17.49) Comments:Family History Status:Active Family history of Hypertensi on(V17.49) Comments:Family History Status:Active Family history of Allergies Comments:Family History Status:Active Family history of Pulmonary Disease Comments:Family History Status:Active Family history of Breast Can cer(V16.3) Comments:Family History Status:Active Mother Name Dates Details Family history of Alzheimer Disease Status:Active Family history of Coronary A rtery Disease(V17.49) Status:Active Family history of Diabetes M ellitus(V18.0) Status:Active Family history of Obesity Status:Active Family history of Arthritis( V17.7) Status:Active Father Name Dates Details Family history of Coronary A rtery Disease(V17.49) Status:Active Family history of Heart Surg bull Status:Active Unknown Family Member Name Dates Details Family history of Heart Dise ase(V17.49) Comments:Family History Status:Active Family history of Hypertensi on(V17.49) Comments:Family History Status:Active Family history of Allergies Comments:Family History Status:Active Family history of Pulmonary Disease Comments:Family History Status:Active Family history of Breast Can cer(V16.3) Comments:Family History Status:Active Mother Name Dates Details Family history of Alzheimer Disease Status:Active Family history of Coronary A rtery Disease(V17.49) Status:Active Family history of Diabetes M ellitus(V18.0) Status:Active Family history of Obesity Status:Active Family history of Arthritis( V17.7) Status:Active Father Name Dates Details Family history of Coronary A rtery Disease(V17.49) Status:Active Family history of Heart Surg bull Status:Active Unknown Family Member Name Dates Details Family history of Heart Dise ase(V17.49) Comments:Family History Status:Active Family history of Hypertensi on(V17.49) Comments:Family History Status:Active Family history of Allergies Comments:Family History Status:Active Family history of Pulmonary Disease Comments:Family History Status:Active Family history of Breast Can cer(V16.3) Comments:Family History Status:Active Mother Name Dates Details Family history of Alzheimer Disease Status:Active Family history of Coronary A rtery Disease(V17.49) Status:Active Family history of Diabetes M ellitus(V18.0) Status:Active Family history of Obesity Status:Active Family history of Arthritis( V17.7) Status:Active Father Name Dates Details Family history of Coronary A rtery Disease(V17.49) Status:Active Family history of Heart Surg bull Status:Active Unknown Family Member Name Dates Details Family history of Heart Dise ase(V17.49) Comments:Family History Status:Active Family history of Hypertensi on(V17.49) Comments:Family History Status:Active Family history of Allergies Comments:Family History Status:Active Family history of Pulmonary Disease Comments:Family History Status:Active Family history of Breast Can cer(V16.3) Comments:Family History Status:Active Mother Name Dates Details Family history of Alzheimer Disease Status:Active Family history of Coronary A rtery Disease(V17.49) Status:Active Family history of Diabetes M ellitus(V18.0) Status:Active Family history of Obesity Status:Active Family history of Arthritis( V17.7) Status:Active Father Name Dates Details Family history of Coronary A rtery Disease(V17.49) Status:Active Family history of Heart Surg bull Status:Active Unknown Family Member Name Dates Details Family history of Heart Dise ase(V17.49) Comments:Family History Status:Active Family history of Hypertensi on(V17.49) Comments:Family History Status:Active Family history of Allergies Comments:Family History Status:Active Family history of Pulmonary Disease Comments:Family History Status:Active Family history of Breast Can cer(V16.3) Comments:Family History Status:Active Mother Name Dates Details Family history of Alzheimer Disease Status:Active Family history of Coronary A rtery Disease(V17.49) Status:Active Family history of Diabetes M ellitus(V18.0) Status:Active Family history of Obesity Status:Active Family history of Arthritis( V17.7) Status:Active Father Name Dates Details Family history of Coronary A rtery Disease(V17.49) Status:Active Family history of Heart Surg bull Status:Active Unknown Family Member Name Dates Details Family history of Heart Dise ase(V17.49) Comments:Family History Status:Active Family history of Hypertensi on(V17.49) Comments:Family History Status:Active Family history of Allergies Comments:Family History Status:Active Family history of Pulmonary Disease Comments:Family History Status:Active Family history of Breast Can cer(V16.3) Comments:Family History Status:Active Mother Name Dates Details Family history of Alzheimer Disease Status:Active Family history of Coronary A rtery Disease(V17.49) Status:Active Family history of Diabetes M ellitus(V18.0) Status:Active Family history of Obesity Status:Active Family history of Arthritis( V17.7) Status:Active Father Name Dates Details Family history of Coronary A rtery Disease(V17.49) Status:Active Family history of Heart Surg bull Status:Active Unknown Family Member Name Dates Details Family history of Heart Dise ase(V17.49) Comments:Family History Status:Active Family history of Hypertensi on(V17.49) Comments:Family History Status:Active Family history of Allergies Comments:Family History Status:Active Family history of Pulmonary Disease Comments:Family History Status:Active Family history of Breast Can cer(V16.3) Comments:Family History Status:Active Mother Name Dates Details Family history of Alzheimer Disease Status:Active Family history of Coronary A rtery Disease(V17.49) Status:Active Family history of Diabetes M ellitus(V18.0) Status:Active Family history of Obesity Status:Active Family history of Arthritis( V17.7) Status:Active Father Name Dates Details Family history of Coronary A rtery Disease(V17.49) Status:Active Family history of Heart Surg bull Status:Active Unknown Family Member Name Dates Details Family history of Heart Dise ase(V17.49) Comments:Family History Status:Active Family history of Hypertensi on(V17.49) Comments:Family History Status:Active Family history of Allergies Comments:Family History Status:Active Family history of Pulmonary Disease Comments:Family History Status:Active Family history of Breast Can cer(V16.3) Comments:Family History Status:Active Mother Name Dates Details Family history of Alzheimer Disease Status:Active Family history of Coronary A rtery Disease(V17.49) Status:Active Family history of Diabetes M ellitus(V18.0) Status:Active Family history of Obesity Status:Active Family history of Arthritis( V17.7) Status:Active Father Name Dates Details Family history of Coronary A rtery Disease(V17.49) Status:Active Family history of Heart Surg bull Status:Active Unknown Family Member Name Dates Details Family history of Heart Dise ase(V17.49) Comments:Family History Status:Active Family history of Hypertensi on(V17.49) Comments:Family History Status:Active Family history of Allergies Comments:Family History Status:Active Family history of Pulmonary Disease Comments:Family History Status:Active Family history of Breast Can cer(V16.3) Comments:Family History Status:Active Mother Name Dates Details Family history of Alzheimer Disease Status:Active Family history of Coronary A rtery Disease(V17.49) Status:Active Family history of Diabetes M ellitus(V18.0) Status:Active Family history of Obesity Status:Active Family history of Arthritis( V17.7) Status:Active Father Name Dates Details Family history of Coronary A rtery Disease(V17.49) Status:Active Family history of Heart Surg bull Status:Active Unknown Family Member Name Dates Details Family history of Heart Dise ase(V17.49) Comments:Family History Status:Active Family history of Hypertensi on(V17.49) Comments:Family History Status:Active Family history of Allergies Comments:Family History Status:Active Family history of Pulmonary Disease Comments:Family History Status:Active Family history of Breast Can cer(V16.3) Comments:Family History Status:Active Mother Name Dates Details Family history of Alzheimer Disease Status:Active Family history of Coronary A rtery Disease(V17.49) Status:Active Family history of Diabetes M ellitus(V18.0) Status:Active Family history of Obesity Status:Active Family history of Arthritis( V17.7) Status:Active Father Name Dates Details Family history of Coronary A rtery Disease(V17.49) Status:Active Family history of Heart Surg bull Status:Active Unknown Family Member Name Dates Details Family history of Heart Dise ase(V17.49) Comments:Family History Status:Active Family history of Hypertensi on(V17.49) Comments:Family History Status:Active Family history of Allergies Comments:Family History Status:Active Family history of Pulmonary Disease Comments:Family History Status:Active Family history of Breast Can cer(V16.3) Comments:Family History Status:Active Mother Name Dates Details Family history of Alzheimer Disease Status:Active Family history of Coronary A rtery Disease(V17.49) Status:Active Family history of Diabetes M ellitus(V18.0) Status:Active Family history of Obesity Status:Active Family history of Arthritis( V17.7) Status:Active Father Name Dates Details Family history of Coronary A rtery Disease(V17.49) Status:Active Family history of Heart Surg bull Status:Active Unknown Family Member Name Dates Details Family history of Heart Dise ase(V17.49) Comments:Family History Status:Active Family history of Hypertensi on(V17.49) Comments:Family History Status:Active Family history of Allergies Comments:Family History Status:Active Family history of Pulmonary Disease Comments:Family History Status:Active Family history of Breast Can cer(V16.3) Comments:Family History Status:Active Mother Name Dates Details Family history of Alzheimer Disease Status:Active Family history of Coronary A rtery Disease(V17.49) Status:Active Family history of Diabetes M ellitus(V18.0) Status:Active Family history of Obesity Status:Active Family history of Arthritis( V17.7) Status:Active Father Name Dates Details Family history of Coronary A rtery Disease(V17.49) Status:Active Family history of Heart Surg bull Status:Active Unknown Family Member Name Dates Details Family history of Heart Dise ase(V17.49) Comments:Family History Status:Active Family history of Hypertensi on(V17.49) Comments:Family History Status:Active Family history of Allergies Comments:Family History Status:Active Family history of Pulmonary Disease Comments:Family History Status:Active Family history of Breast Can cer(V16.3) Comments:Family History Status:Active Mother Name Dates Details Family history of Alzheimer Disease Status:Active Family history of Coronary A rtery Disease(V17.49) Status:Active Family history of Diabetes M ellitus(V18.0) Status:Active Family history of Obesity Status:Active Family history of Arthritis( V17.7) Status:Active Father Name Dates Details Family history of Coronary A rtery Disease(V17.49) Status:Active Family history of Heart Surg bull Status:Active Unknown Family Member Name Dates Details Family history of Heart Dise ase(V17.49) Comments:Family History Status:Active Family history of Hypertensi on(V17.49) Comments:Family History Status:Active Family history of Allergies Comments:Family History Status:Active Family history of Pulmonary Disease Comments:Family History Status:Active Family history of Breast Can cer(V16.3) Comments:Family History Status:Active Mother Name Dates Details Family history of Alzheimer Disease Status:Active Family history of Coronary A rtery Disease(V17.49) Status:Active Family history of Diabetes M ellitus(V18.0) Status:Active Family history of Obesity Status:Active Family history of Arthritis( V17.7) Status:Active Father Name Dates Details Family history of Coronary A rtery Disease(V17.49) Status:Active Family history of Heart Surg bull Status:Active Unknown Family Member Name Dates Details Family history of Heart Dise ase(V17.49) Comments:Family History Status:Active Family history of Hypertensi on(V17.49) Comments:Family History Status:Active Family history of Allergies Comments:Family History Status:Active Family history of Pulmonary Disease Comments:Family History Status:Active Family history of Breast Can cer(V16.3) Comments:Family History Status:Active Mother Name Dates Details Family history of Alzheimer Disease Status:Active Family history of Coronary A rtery Disease(V17.49) Status:Active Family history of Diabetes M ellitus(V18.0) Status:Active Family history of Obesity Status:Active Family history of Arthritis( V17.7) Status:Active Father Name Dates Details Family history of Coronary A rtery Disease(V17.49) Status:Active Family history of Heart Surg bull Status:Active Unknown Family Member Name Dates Details Family history of Heart Dise ase(V17.49) Comments:Family History Status:Active Family history of Hypertensi on(V17.49) Comments:Family History Status:Active Family history of Allergies Comments:Family History Status:Active Family history of Pulmonary Disease Comments:Family History Status:Active Family history of Breast Can cer(V16.3) Comments:Family History Status:Active Mother Name Dates Details Family history of Alzheimer Disease Status:Active Family history of Coronary A rtery Disease(V17.49) Status:Active Family history of Diabetes M ellitus(V18.0) Status:Active Family history of Obesity Status:Active Family history of Arthritis( V17.7) Status:Active Father Name Dates Details Family history of Coronary A rtery Disease(V17.49) Status:Active Family history of Heart Surg bull Status:Active Unknown Family Member Name Dates Details Family history of Heart Dise ase(V17.49) Comments:Family History Status:Active Family history of Hypertensi on(V17.49) Comments:Family History Status:Active Family history of Allergies Comments:Family History Status:Active Family history of Pulmonary Disease Comments:Family History Status:Active Family history of Breast Can cer(V16.3) Comments:Family History Status:Active Mother Name Dates Details Family history of Alzheimer Disease Status:Active Family history of Coronary A rtery Disease(V17.49) Status:Active Family history of Diabetes M ellitus(V18.0) Status:Active Family history of Obesity Status:Active Family history of Arthritis( V17.7) Status:Active Father Name Dates Details Family history of Coronary A rtery Disease(V17.49) Status:Active Family history of Heart Surg bull Status:Active Unknown Family Member Name Dates Details Family history of Heart Dise ase(V17.49) Comments:Family History Status:Active Family history of Hypertensi on(V17.49) Comments:Family History Status:Active Family history of Allergies Comments:Family History Status:Active Family history of Pulmonary Disease Comments:Family History Status:Active Family history of Breast Can cer(V16.3) Comments:Family History Status:Active Mother Name Dates Details Family history of Alzheimer Disease Status:Active Family history of Coronary A rtery Disease(V17.49) Status:Active Family history of Diabetes M ellitus(V18.0) Status:Active Family history of Obesity Status:Active Family history of Arthritis( V17.7) Status:Active Father Name Dates Details Family history of Coronary A rtery Disease(V17.49) Status:Active Family history of Heart Surg bull Status:Active Unknown Family Member Name Dates Details Family history of Heart Dise ase(V17.49) Comments:Family History Status:Active Family history of Hypertensi on(V17.49) Comments:Family History Status:Active Family history of Allergies Comments:Family History Status:Active Family history of Pulmonary Disease Comments:Family History Status:Active Family history of Breast Can cer(V16.3) Comments:Family History Status:Active Mother Name Dates Details Family history of Alzheimer Disease Status:Active Family history of Coronary A rtery Disease(V17.49) Status:Active Family history of Diabetes M ellitus(V18.0) Status:Active Family history of Obesity Status:Active Family history of Arthritis( V17.7) Status:Active Father Name Dates Details Family history of Coronary A rtery Disease(V17.49) Status:Active Family history of Heart Surg bull Status:Active Unknown Family Member Name Dates Details Family history of Heart Dise ase(V17.49) Comments:Family History Status:Active Family history of Hypertensi on(V17.49) Comments:Family History Status:Active Family history of Allergies Comments:Family History Status:Active Family history of Pulmonary Disease Comments:Family History Status:Active Family history of Breast Can cer(V16.3) Comments:Family History Status:Active Mother Name Dates Details Family history of Alzheimer Disease Status:Active Family history of Coronary A rtery Disease(V17.49) Status:Active Family history of Diabetes M ellitus(V18.0) Status:Active Family history of Obesity Status:Active Family history of Arthritis( V17.7) Status:Active Father Name Dates Details Family history of Coronary A rtery Disease(V17.49) Status:Active Family history of Heart Surg bull Status:Active Unknown Family Member Name Dates Details Family history of Heart Dise ase(V17.49) Comments:Family History Status:Active Family history of Hypertensi on(V17.49) Comments:Family History Status:Active Family history of Allergies Comments:Family History Status:Active Family history of Pulmonary Disease Comments:Family History Status:Active Family history of Breast Can cer(V16.3) Comments:Family History Status:Active Mother Name Dates Details Family history of Alzheimer Disease Status:Active Family history of Coronary A rtery Disease(V17.49) Status:Active Family history of Diabetes M ellitus(V18.0) Status:Active Family history of Obesity Status:Active Family history of Arthritis( V17.7) Status:Active Father Name Dates Details Family history of Coronary A rtery Disease(V17.49) Status:Active Family history of Heart Surg bull Status:Active Unknown Family Member Name Dates Details Family history of Heart Dise ase(V17.49) Comments:Family History Status:Active Family history of Hypertensi on(V17.49) Comments:Family History Status:Active Family history of Allergies Comments:Family History Status:Active Family history of Pulmonary Disease Comments:Family History Status:Active Family history of Breast Can cer(V16.3) Comments:Family History Status:Active Mother Name Dates Details Family history of Alzheimer Disease Status:Active Family history of Coronary A rtery Disease(V17.49) Status:Active Family history of Diabetes M ellitus(V18.0) Status:Active Family history of Obesity Status:Active Family history of Arthritis( V17.7) Status:Active Father Name Dates Details Family history of Coronary A rtery Disease(V17.49) Status:Active Family history of Heart Surg bull Status:Active Unknown Family Member Name Dates Details Family history of Heart Dise ase(V17.49) Comments:Family History Status:Active Family history of Hypertensi on(V17.49) Comments:Family History Status:Active Family history of Allergies Comments:Family History Status:Active Family history of Pulmonary Disease Comments:Family History Status:Active Family history of Breast Can cer(V16.3) Comments:Family History Status:Active Mother Name Dates Details Family history of Alzheimer Disease Status:Active Family history of Coronary A rtery Disease(V17.49) Status:Active Family history of Diabetes M ellitus(V18.0) Status:Active Family history of Obesity Status:Active Family history of Arthritis( V17.7) Status:Active Father Name Dates Details Family history of Coronary A rtery Disease(V17.49) Status:Active Family history of Heart Surg bull Status:Active Unknown Family Member Name Dates Details Family history of Heart Dise ase(V17.49) Comments:Family History Status:Active Family history of Hypertensi on(V17.49) Comments:Family History Status:Active Family history of Allergies Comments:Family History Status:Active Family history of Pulmonary Disease Comments:Family History Status:Active Family history of Breast Can cer(V16.3) Comments:Family History Status:Active Mother Name Dates Details Family history of Alzheimer Disease Status:Active Family history of Coronary A rtery Disease(V17.49) Status:Active Family history of Diabetes M ellitus(V18.0) Status:Active Family history of Obesity Status:Active Family history of Arthritis( V17.7) Status:Active Father Name Dates Details Family history of Coronary A rtery Disease(V17.49) Status:Active Family history of Heart Surg bull Status:Active Unknown Family Member Name Dates Details Family history of Heart Dise ase(V17.49) Comments:Family History Status:Active Family history of Hypertensi on(V17.49) Comments:Family History Status:Active Family history of Allergies Comments:Family History Status:Active Family history of Pulmonary Disease Comments:Family History Status:Active Family history of Breast Can cer(V16.3) Comments:Family History Status:Active Mother Name Dates Details Family history of Alzheimer Disease Status:Active Family history of Coronary A rtery Disease(V17.49) Status:Active Family history of Diabetes M ellitus(V18.0) Status:Active Family history of Obesity Status:Active Family history of Arthritis( V17.7) Status:Active Father Name Dates Details Family history of Coronary A rtery Disease(V17.49) Status:Active Family history of Heart Surg bull Status:Active Unknown Family Member Name Dates Details Family history of Heart Dise ase(V17.49) Comments:Family History Status:Active Family history of Hypertensi on(V17.49) Comments:Family History Status:Active Family history of Allergies Comments:Family History Status:Active Family history of Pulmonary Disease Comments:Family History Status:Active Family history of Breast Can cer(V16.3) Comments:Family History Status:Active Mother Name Dates Details Family history of Alzheimer Disease Status:Active Family history of Coronary A rtery Disease(V17.49) Status:Active Family history of Diabetes M ellitus(V18.0) Status:Active Family history of Obesity Status:Active Family history of Arthritis( V17.7) Status:Active Father Name Dates Details Family history of Coronary A rtery Disease(V17.49) Status:Active Family history of Heart Surg bull Status:Active Unknown Family Member Name Dates Details Family history of Heart Dise ase(V17.49) Comments:Family History Status:Active Family history of Hypertensi on(V17.49) Comments:Family History Status:Active Family history of Allergies Comments:Family History Status:Active Family history of Pulmonary Disease Comments:Family History Status:Active Family history of Breast Can cer(V16.3) Comments:Family History Status:Active Mother Name Dates Details Family history of Alzheimer Disease Status:Active Family history of Coronary A rtery Disease(V17.49) Status:Active Family history of Diabetes M ellitus(V18.0) Status:Active Family history of Obesity Status:Active Family history of Arthritis( V17.7) Status:Active Father Name Dates Details Family history of Coronary A rtery Disease(V17.49) Status:Active Family history of Heart Surg bull Status:Active Unknown Family Member Name Dates Details Family history of Heart Dise ase(V17.49) Comments:Family History Status:Active Family history of Hypertensi on(V17.49) Comments:Family History Status:Active Family history of Allergies Comments:Family History Status:Active Family history of Pulmonary Disease Comments:Family History Status:Active Family history of Breast Can cer(V16.3) Comments:Family History Status:Active Mother Name Dates Details Family history of Alzheimer Disease Status:Active Family history of Coronary A rtery Disease(V17.49) Status:Active Family history of Diabetes M ellitus(V18.0) Status:Active Family history of Obesity Status:Active Family history of Arthritis( V17.7) Status:Active Father Name Dates Details Family history of Coronary A rtery Disease(V1.49) Status:Active Family history of Heart Surg bull Status:Active Unknown Family Member Name Dates Details Heart Disease: Family Histor y(V17.49) Status:Active Hypertension: Family History (V17.49) Status:Active Allergies: Family History Status:Active Pulmonary Disease: Family Hi story Status:Active Alzheimer Disease: Mother Status:Active Coronary Artery Disease: Mot her(V17.49) Status:Active Diabetes Mellitus: Mother(V1 8.0) Status:Active Obesity: Mother Status:Active Arthritis: Mother(V17.7) Status:Active Coronary Artery Disease: Fat her(V17.49) Status:Active Heart Surgery: Father Status:Active Breast Cancer: Family Histor y(V16.3) Status:Active Unknown Family Member Name Dates Details Heart Disease: Family Histor y(V17.49) Status:Active Hypertension: Family History (V17.49) Status:Active Allergies: Family History Status:Active Pulmonary Disease: Family Hi story Status:Active Alzheimer Disease: Mother Status:Active Coronary Artery Disease: Mot her(V17.49) Status:Active Diabetes Mellitus: Mother(V1 8.0) Status:Active Obesity: Mother Status:Active Arthritis: Mother(V17.7) Status:Active Coronary Artery Disease: Fat her(V17.49) Status:Active Heart Surgery: Father Status:Active Breast Cancer: Family Histor y(V16.3) Status:Active Unknown Family Member Name Dates Details Heart Disease: Family Histor y(V17.49) Status:Active Hypertension: Family History (V17.49) Status:Active Allergies: Family History Status:Active Pulmonary Disease: Family Hi story Status:Active Alzheimer Disease: Mother Status:Active Coronary Artery Disease: Mot her(V17.49) Status:Active Diabetes Mellitus: Mother(V1 8.0) Status:Active Obesity: Mother Status:Active Arthritis: Mother(V17.7) Status:Active Coronary Artery Disease: Fat her(V17.49) Status:Active Heart Surgery: Father Status:Active Breast Cancer: Family Histor y(V16.3) Status:Active Unknown Family Member Name Dates Details Heart Disease: Family Histor y(V17.49) Status:Active Hypertension: Family History (V17.49) Status:Active Allergies: Family History Status:Active Pulmonary Disease: Family Hi story Status:Active Alzheimer Disease: Mother Status:Active Coronary Artery Disease: Mot her(V17.49) Status:Active Diabetes Mellitus: Mother(V1 8.0) Status:Active Obesity: Mother Status:Active Arthritis: Mother(V17.7) Status:Active Coronary Artery Disease: Fat her(V17.49) Status:Active Heart Surgery: Father Status:Active Breast Cancer: Family Histor y(V16.3) Status:Active Unknown Family Member Name Dates Details Alzheimer Disease: Mother Status:Active Coronary Artery Disease: Mot her(V17.49) Status:Active Diabetes Mellitus: Mother(V1 8.0) Status:Active Obesity: Mother Status:Active Arthritis: Mother(V17.7) Status:Active Coronary Artery Disease: Fat her(7.49) Status:Active Heart Surgery: Father Status:Active Breast Cancer: Family Histor y(V16.3) Status:Active Pulmonary Disease: Family Hi story Status:Active Allergies: Family History Status:Active Hypertension: Family History (V17.49) Status:Active Heart Disease: Family Histor y(V17.49) Status:Active Unknown Family Member Name Dates Details Heart Disease: Family Histor y(7.49) Status:Active Hypertension: Family History (V17.49) Status:Active Allergies: Family History Status:Active Pulmonary Disease: Family Hi story Status:Active Alzheimer Disease: Mother Status:Active Coronary Artery Disease: Mot her(V17.49) Status:Active Diabetes Mellitus: Mother(V1 8.0) Status:Active Obesity: Mother Status:Active Arthritis: Mother(V17.7) Status:Active Coronary Artery Disease: Fat her(7.49) Status:Active Heart Surgery: Father Status:Active Breast Cancer: Family Histor y(V16.3) Status:Active Unknown Family Member Name Dates Details Heart Disease: Family Histor y(749) Status:Active Hypertension: Family History (749) Status:Active Allergies: Family History Status:Active Pulmonary Disease: Family Hi story Status:Active Alzheimer Disease: Mother Status:Active Coronary Artery Disease: Mot her(7.49) Status:Active Diabetes Mellitus: Mother(V1 8.0) Status:Active Obesity: Mother Status:Active Arthritis: Mother(V17.7) Status:Active Coronary Artery Disease: Fat her(7.49) Status:Active Heart Surgery: Father Status:Active Breast Cancer: Family Histor y(V16.3) Status:Active Unknown Family Member Name Dates Details Heart Disease: Family Histor y(749) Status:Active Hypertension: Family History (49) Status:Active Allergies: Family History Status:Active Pulmonary Disease: Family Hi story Status:Active Alzheimer Disease: Mother Status:Active Coronary Artery Disease: Mot her(V17.49) Status:Active Diabetes Mellitus: Mother(V1 8.0) Status:Active Obesity: Mother Status:Active Arthritis: Mother(V17.7) Status:Active Coronary Artery Disease: Fat her(V17.49) Status:Active Heart Surgery: Father Status:Active Breast Cancer: Family Histor y(V16.3) Status:Active Unknown Family Member Name Dates Details Breast Cancer: Family Histor y(V16.3) Status:Active Heart Surgery: Father Status:Active Coronary Artery Disease: Fat her(V17.49) Status:Active Arthritis: Mother(V17.7) Status:Active Obesity: Mother Status:Active Diabetes Mellitus: Mother(V1 8.0) Status:Active Coronary Artery Disease: Mot her(V17.49) Status:Active Alzheimer Disease: Mother Status:Active Pulmonary Disease: Family Hi story Status:Active Allergies: Family History Status:Active Hypertension: Family History (V17.49) Status:Active Heart Disease: Family Histor y(V17.49) Status:Active Unknown Family Member Name Dates Details Heart Disease: Family Histor y(V17.49) Status:Active Hypertension: Family History (V17.49) Status:Active Allergies: Family History Status:Active Pulmonary Disease: Family Hi story Status:Active Alzheimer Disease: Mother Status:Active Coronary Artery Disease: Mot her(7.49) Status:Active Diabetes Mellitus: Mother(V1 8.0) Status:Active Obesity: Mother Status:Active Arthritis: Mother(V17.7) Status:Active Coronary Artery Disease: Fat her(7.49) Status:Active Heart Surgery: Father Status:Active Breast Cancer: Family Histor y(V16.3) Status:Active Unknown Family Member Name Dates Details Heart Disease: Family Histor y(749) Status:Active Hypertension: Family History (49) Status:Active Allergies: Family History Status:Active Pulmonary Disease: Family Hi story Status:Active Alzheimer Disease: Mother Status:Active Coronary Artery Disease: Mot her(7.49) Status:Active Diabetes Mellitus: Mother(V1 8.0) Status:Active Obesity: Mother Status:Active Arthritis: Mother(V17.7) Status:Active Coronary Artery Disease: Fat her(7.49) Status:Active Heart Surgery: Father Status:Active Breast Cancer: Family Histor y(V16.3) Status:Active Unknown Family Member Name Dates Details Heart Disease: Family Histor y(749) Status:Active Hypertension: Family History (49) Status:Active Allergies: Family History Status:Active Pulmonary Disease: Family Hi story Status:Active Alzheimer Disease: Mother Status:Active Coronary Artery Disease: Mot her(7.49) Status:Active Diabetes Mellitus: Mother(V1 8.0) Status:Active Obesity: Mother Status:Active Arthritis: Mother(V17.7) Status:Active Coronary Artery Disease: Fat her(V17.49) Status:Active Heart Surgery: Father Status:Active Breast Cancer: Family Histor y(V16.3) Status:Active Unknown Family Member Name Dates Details Breast Cancer: Family Histor y(V16.3) Status:Active Heart Surgery: Father Status:Active Coronary Artery Disease: Fat her(V17.49) Status:Active Arthritis: Mother(V17.7) Status:Active Obesity: Mother Status:Active Diabetes Mellitus: Mother(V1 8.0) Status:Active Coronary Artery Disease: Mot her(V17.49) Status:Active Alzheimer Disease: Mother Status:Active Pulmonary Disease: Family Hi story Status:Active Allergies: Family History Status:Active Hypertension: Family History (V17.49) Status:Active Heart Disease: Family Histor y(V17.49) Status:Active Unknown Family Member Name Dates Details Alzheimer Disease: Mother Status:Active Coronary Artery Disease: Mot her(V17.49) Status:Active Diabetes Mellitus: Mother(V1 8.0) Status:Active Obesity: Mother Status:Active Arthritis: Mother(V17.7) Status:Active Coronary Artery Disease: Fat her(V17.49) Status:Active Heart Surgery: Father Status:Active Breast Cancer: Family Histor y(V16.3) Status:Active Pulmonary Disease: Family Hi story Status:Active Allergies: Family History Status:Active Hypertension: Family History (V17.49) Status:Active Heart Disease: Family Histor y(V17.49) Status:Active Unknown Family Member Name Dates Details Heart Disease: Family Histor y(V17.49) Status:Active Hypertension: Family History (V17.49) Status:Active Allergies: Family History Status:Active Pulmonary Disease: Family Hi story Status:Active Alzheimer Disease: Mother Status:Active Coronary Artery Disease: Mot her(V17.49) Status:Active Diabetes Mellitus: Mother(V1 8.0) Status:Active Obesity: Mother Status:Active Arthritis: Mother(V17.7) Status:Active Coronary Artery Disease: Fat her(V17.49) Status:Active Heart Surgery: Father Status:Active Breast Cancer: Family Histor y(V16.3) Status:Active Unknown Family Member Name Dates Details Breast Cancer: Family Histor y(V16.3) Status:Active Heart Surgery: Father Status:Active Coronary Artery Disease: Fat her(V17.49) Status:Active Arthritis: Mother(V17.7) Status:Active Obesity: Mother Status:Active Diabetes Mellitus: Mother(V1 8.0) Status:Active Coronary Artery Disease: Mot her(V17.49) Status:Active Alzheimer Disease: Mother Status:Active Pulmonary Disease: Family Hi story Status:Active Allergies: Family History Status:Active Hypertension: Family History (V17.49) Status:Active Heart Disease: Family Histor y(V17.49) Status:Active Unknown Family Member Name Dates Details Heart Disease: Family Histor y(V17.49) Status:Active Hypertension: Family History (.49) Status:Active Allergies: Family History Status:Active Pulmonary Disease: Family Hi story Status:Active Alzheimer Disease: Mother Status:Active Coronary Artery Disease: Mot her(7.49) Status:Active Diabetes Mellitus: Mother(V1 8.0) Status:Active Obesity: Mother Status:Active Arthritis: Mother(V17.7) Status:Active Coronary Artery Disease: Fat her(7.49) Status:Active Heart Surgery: Father Status:Active Breast Cancer: Family Histor y(V16.3) Status:Active Unknown Family Member Name Dates Details Alzheimer Disease: Mother Status:Active Coronary Artery Disease: Mot her(.49) Status:Active Diabetes Mellitus: Mother(V1 8.0) Status:Active Obesity: Mother Status:Active Arthritis: Mother(V17.7) Status:Active Coronary Artery Disease: Fat her(.49) Status:Active Heart Surgery: Father Status:Active Breast Cancer: Family Histor y(V16.3) Status:Active Pulmonary Disease: Family Hi story Status:Active Allergies: Family History Status:Active Hypertension: Family History (49) Status:Active Heart Disease: Family Histor y(49) Status:Active Unknown Family Member Name Dates Details Breast Cancer: Family Histor y(V16.3) Status:Active Heart Surgery: Father Status:Active Coronary Artery Disease: Fat her(749) Status:Active Arthritis: Mother(V17.7) Status:Active Obesity: Mother Status:Active Diabetes Mellitus: Mother(V1 8.0) Status:Active Coronary Artery Disease: Mot her(49) Status:Active Alzheimer Disease: Mother Status:Active Pulmonary Disease: Family Hi story Status:Active Allergies: Family History Status:Active Hypertension: Family History (49) Status:Active Heart Disease: Family Histor y(7.49) Status:Active Unknown Family Member Name Dates Details Heart Disease: Family Histor y(49) Status:Active Hypertension: Family History (49) Status:Active Allergies: Family History Status:Active Pulmonary Disease: Family Hi story Status:Active Alzheimer Disease: Mother Status:Active Coronary Artery Disease: Mot her(V17.49) Status:Active Diabetes Mellitus: Mother(V1 8.0) Status:Active Obesity: Mother Status:Active Arthritis: Mother(V17.7) Status:Active Coronary Artery Disease: Fat her(V17.49) Status:Active Heart Surgery: Father Status:Active Breast Cancer: Family Histor y(V16.3) Status:Active Unknown Family Member Name Dates Details Heart Disease: Family Histor y(V17.49) Status:Active Hypertension: Family History (V17.49) Status:Active Allergies: Family History Status:Active Pulmonary Disease: Family Hi story Status:Active Alzheimer Disease: Mother Status:Active Coronary Artery Disease: Mot her(.49) Status:Active Diabetes Mellitus: Mother(V1 8.0) Status:Active Obesity: Mother Status:Active Arthritis: Mother(V17.7) Status:Active Coronary Artery Disease: Fat her(7.49) Status:Active Heart Surgery: Father Status:Active Breast Cancer: Family Histor y(V16.3) Status:Active Unknown Family Member Name Dates Details Heart Disease: Family Histor y(749) Status:Active Hypertension: Family History (749) Status:Active Allergies: Family History Status:Active Pulmonary Disease: Family Hi story Status:Active Alzheimer Disease: Mother Status:Active Coronary Artery Disease: Mot her(7.49) Status:Active Diabetes Mellitus: Mother(V1 8.0) Status:Active Obesity: Mother Status:Active Arthritis: Mother(V17.7) Status:Active Coronary Artery Disease: Fat her(7.49) Status:Active Heart Surgery: Father Status:Active Breast Cancer: Family Histor y(V16.3) Status:Active Unknown Family Member Name Dates Details Heart Disease: Family Histor y(749) Status:Active Hypertension: Family History (749) Status:Active Allergies: Family History Status:Active Pulmonary Disease: Family Hi story Status:Active Alzheimer Disease: Mother Status:Active Coronary Artery Disease: Mot her(V17.49) Status:Active Diabetes Mellitus: Mother(V1 8.0) Status:Active Obesity: Mother Status:Active Arthritis: Mother(V17.7) Status:Active Coronary Artery Disease: Fat her(7.49) Status:Active Heart Surgery: Father Status:Active Breast Cancer: Family Histor y(V16.3) Status:Active Unknown Family Member Name Dates Details Heart Disease: Family Histor y(V17.49) Status:Active Hypertension: Family History (749) Status:Active Allergies: Family History Status:Active Pulmonary Disease: Family Hi story Status:Active Alzheimer Disease: Mother Status:Active Coronary Artery Disease: Mot her(7.49) Status:Active Diabetes Mellitus: Mother(V1 8.0) Status:Active Obesity: Mother Status:Active Arthritis: Mother(V17.7) Status:Active Coronary Artery Disease: Fat her(7.49) Status:Active Heart Surgery: Father Status:Active Breast Cancer: Family Histor y(V16.3) Status:Active Unknown Family Member Name Dates Details Heart Disease: Family Histor y(49) Status:Active Hypertension: Family History () Status:Active Allergies: Family History Status:Active Pulmonary Disease: Family Hi story Status:Active Alzheimer Disease: Mother Status:Active Coronary Artery Disease: Mot her(49) Status:Active Diabetes Mellitus: Mother(V1 8.0) Status:Active Obesity: Mother Status:Active Arthritis: Mother(V17.7) Status:Active Coronary Artery Disease: Fat her(7.49) Status:Active Heart Surgery: Father Status:Active Breast Cancer: Family Histor y(V16.3) Status:Active Unknown Family Member Name Dates Details Breast Cancer: Family Histor y(V16.3) Status:Active Heart Surgery: Father Status:Active Coronary Artery Disease: Fat her(7.49) Status:Active Arthritis: Mother(V17.7) Status:Active Obesity: Mother Status:Active Diabetes Mellitus: Mother(V1 8.0) Status:Active Coronary Artery Disease: Mot her(49) Status:Active Alzheimer Disease: Mother Status:Active Pulmonary Disease: Family Hi story Status:Active Allergies: Family History Status:Active Hypertension: Family History (49) Status:Active Heart Disease: Family Histor y(49) Status:Active Unknown Family Member Name Dates Details Heart Disease: Family Histor y(749) Status:Active Hypertension: Family History (49) Status:Active Allergies: Family History Status:Active Pulmonary Disease: Family Hi story Status:Active Alzheimer Disease: Mother Status:Active Coronary Artery Disease: Mot her(V17.49) Status:Active Diabetes Mellitus: Mother(V1 8.0) Status:Active Obesity: Mother Status:Active Arthritis: Mother(V17.7) Status:Active Coronary Artery Disease: Fat her(V17.49) Status:Active Heart Surgery: Father Status:Active Breast Cancer: Family Histor y(V16.3) Status:Active Unknown Family Member Name Dates Details Heart Disease: Family Histor y(V17.49) Status:Active Hypertension: Family History (V17.49) Status:Active Allergies: Family History Status:Active Pulmonary Disease: Family Hi story Status:Active Alzheimer Disease: Mother Status:Active Coronary Artery Disease: Mot her(V17.49) Status:Active Diabetes Mellitus: Mother(V1 8.0) Status:Active Obesity: Mother Status:Active Arthritis: Mother(V17.7) Status:Active Coronary Artery Disease: Fat her(V17.49) Status:Active Heart Surgery: Father Status:Active Breast Cancer: Family Histor y(V16.3) Status:Active Unknown Family Member Name Dates Details Breast Cancer: Family Histor y(V16.3) Status:Active Heart Surgery: Father Status:Active Coronary Artery Disease: Fat her(V17.49) Status:Active Arthritis: Mother(V17.7) Status:Active Obesity: Mother Status:Active Diabetes Mellitus: Mother(V1 8.0) Status:Active Coronary Artery Disease: Mot her(V17.49) Status:Active Alzheimer Disease: Mother Status:Active Pulmonary Disease: Family Hi story Status:Active Allergies: Family History Status:Active Hypertension: Family History (V17.49) Status:Active Heart Disease: Family Histor y(V17.49) Status:Active Unknown Family Member Name Dates Details Heart Disease: Family Histor y(V17.49) Status:Active Hypertension: Family History (V17.49) Status:Active Allergies: Family History Status:Active Pulmonary Disease: Family Hi story Status:Active Alzheimer Disease: Mother Status:Active Coronary Artery Disease: Mot her(V17.49) Status:Active Diabetes Mellitus: Mother(V1 8.0) Status:Active Obesity: Mother Status:Active Arthritis: Mother(V17.7) Status:Active Coronary Artery Disease: Fat her(V17.49) Status:Active Heart Surgery: Father Status:Active Breast Cancer: Family Histor y(V16.3) Status:Active Unknown Family Member Name Dates Details Heart Disease: Family Histor y(749) Status:Active Hypertension: Family History (749) Status:Active Allergies: Family History Status:Active Pulmonary Disease: Family Hi story Status:Active Alzheimer Disease: Mother Status:Active Coronary Artery Disease: Mot her(7.49) Status:Active Diabetes Mellitus: Mother(V1 8.0) Status:Active Obesity: Mother Status:Active Arthritis: Mother(V17.7) Status:Active Coronary Artery Disease: Fat her(749) Status:Active Heart Surgery: Father Status:Active Breast Cancer: Family Histor y(V16.3) Status:Active Unknown Family Member Name Dates Details Heart Disease: Family Histor y(49) Status:Active Hypertension: Family History (49) Status:Active Allergies: Family History Status:Active Pulmonary Disease: Family Hi story Status:Active Alzheimer Disease: Mother Status:Active Coronary Artery Disease: Mot her(49) Status:Active Diabetes Mellitus: Mother(V1 8.0) Status:Active Obesity: Mother Status:Active Arthritis: Mother(V17.7) Status:Active Coronary Artery Disease: Fat her(49) Status:Active Heart Surgery: Father Status:Active Breast Cancer: Family Histor y(V16.3) Status:Active Unknown Family Member Name Dates Details Heart Disease: Family Histor y() Status:Active Hypertension: Family History (49) Status:Active Allergies: Family History Status:Active Pulmonary Disease: Family Hi story Status:Active Alzheimer Disease: Mother Status:Active Coronary Artery Disease: Mot her(49) Status:Active Diabetes Mellitus: Mother(V1 8.0) Status:Active Obesity: Mother Status:Active Arthritis: Mother(V17.7) Status:Active Coronary Artery Disease: Fat her(.49) Status:Active Heart Surgery: Father Status:Active Breast Cancer: Family Histor y(V16.3) Status:Active Unknown Family Member Name Dates Details Heart Disease: Family Histor y(49) Status:Active Hypertension: Family History (49) Status:Active Allergies: Family History Status:Active Pulmonary Disease: Family Hi story Status:Active Alzheimer Disease: Mother Status:Active Coronary Artery Disease: Mot her(49) Status:Active Diabetes Mellitus: Mother(V1 8.0) Status:Active Obesity: Mother Status:Active Arthritis: Mother(V17.7) Status:Active Coronary Artery Disease: Fat her(V17.49) Status:Active Heart Surgery: Father Status:Active Breast Cancer: Family Histor y(V16.3) Status:Active Unknown Family Member Name Dates Details Heart Disease: Family Histor y(V17.49) Status:Active Hypertension: Family History (V17.49) Status:Active Allergies: Family History Status:Active Pulmonary Disease: Family Hi story Status:Active Alzheimer Disease: Mother Status:Active Coronary Artery Disease: Mot her(V17.49) Status:Active Diabetes Mellitus: Mother(V1 8.0) Status:Active Obesity: Mother Status:Active Arthritis: Mother(V17.7) Status:Active Coronary Artery Disease: Fat her(7.49) Status:Active Heart Surgery: Father Status:Active Breast Cancer: Family Histor y(V16.3) Status:Active Unknown Family Member Name Dates Details Heart Disease: Family Histor y(749) Status:Active Hypertension: Family History (749) Status:Active Allergies: Family History Status:Active Pulmonary Disease: Family Hi story Status:Active Alzheimer Disease: Mother Status:Active Coronary Artery Disease: Mot her(V17.49) Status:Active Diabetes Mellitus: Mother(V1 8.0) Status:Active Obesity: Mother Status:Active Arthritis: Mother(V17.7) Status:Active Coronary Artery Disease: Fat her(V17.49) Status:Active Heart Surgery: Father Status:Active Breast Cancer: Family Histor y(V16.3) Status:Active Unknown Family Member Name Dates Details Heart Disease: Family Histor y(V17.49) Status:Active Hypertension: Family History (7.49) Status:Active Allergies: Family History Status:Active Pulmonary Disease: Family Hi story Status:Active Alzheimer Disease: Mother Status:Active Coronary Artery Disease: Mot her(V17.49) Status:Active Diabetes Mellitus: Mother(V1 8.0) Status:Active Obesity: Mother Status:Active Arthritis: Mother(V17.7) Status:Active Coronary Artery Disease: Fat her(V17.49) Status:Active Heart Surgery: Father Status:Active Breast Cancer: Family Histor y(V16.3) Status:Active Unknown Family Member Name Dates Details Heart Disease: Family Histor y(V17.49) Status:Active Hypertension: Family History (V17.49) Status:Active Allergies: Family History Status:Active Pulmonary Disease: Family Hi story Status:Active Alzheimer Disease: Mother Status:Active Coronary Artery Disease: Mot her(7.49) Status:Active Diabetes Mellitus: Mother(V1 8.0) Status:Active Obesity: Mother Status:Active Arthritis: Mother(V17.7) Status:Active Coronary Artery Disease: Fat her(7.49) Status:Active Heart Surgery: Father Status:Active Breast Cancer: Family Histor y(V16.3) Status:Active Unknown Family Member Name Dates Details Heart Disease: Family Histor y(V17.49) Status:Active Hypertension: Family History (749) Status:Active Allergies: Family History Status:Active Pulmonary Disease: Family Hi story Status:Active Alzheimer Disease: Mother Status:Active Coronary Artery Disease: Mot her(7.49) Status:Active Diabetes Mellitus: Mother(V1 8.0) Status:Active Obesity: Mother Status:Active Arthritis: Mother(V17.7) Status:Active Coronary Artery Disease: Fat her(49) Status:Active Heart Surgery: Father Status:Active Breast Cancer: Family Histor y(V16.3) Status:Active Unknown Family Member Name Dates Details Heart Disease: Family Histor y(749) Status:Active Hypertension: Family History (49) Status:Active Allergies: Family History Status:Active Pulmonary Disease: Family Hi story Status:Active Alzheimer Disease: Mother Status:Active Coronary Artery Disease: Mot her(7.49) Status:Active Diabetes Mellitus: Mother(V1 8.0) Status:Active Obesity: Mother Status:Active Arthritis: Mother(V17.7) Status:Active Coronary Artery Disease: Fat her(.49) Status:Active Heart Surgery: Father Status:Active Breast Cancer: Family Histor y(V16.3) Status:Active Unknown Family Member Name Dates Details Heart Disease: Family Histor y(749) Status:Active Hypertension: Family History (49) Status:Active Allergies: Family History Status:Active Pulmonary Disease: Family Hi story Status:Active Alzheimer Disease: Mother Status:Active Coronary Artery Disease: Mot her(V17.49) Status:Active Diabetes Mellitus: Mother(V1 8.0) Status:Active Obesity: Mother Status:Active Arthritis: Mother(V17.7) Status:Active Coronary Artery Disease: Fat her(V17.49) Status:Active Heart Surgery: Father Status:Active Breast Cancer: Family Histor y(V16.3) Status:Active Advance Directives Documents on File Type Date Recorded Patient Hand Spinner Expl anation Living Will 10/16/2021 Healthcare Power of Atty 01/05/2017 Latest Code Status on File Code Status Date Activated Date Inactivated Comments Full Code 10/10/2022 9:05 PM 10/16/2022 5:15 PM Documents on File Type Date Recorded Patient Hand Spinner Expl anation Advance Directives and Living Will 01/06/2017 Advance Directive Response Recorded Date/ Time Do you have a Healthcare Power of Sap Bw Consultant? No July 25, 2024 2:44pm Hospital Course Note Send Summary:Discharge Summa ry Providers:Provider RoleProvider Name? ReferringManny Arana? ConsultingVentura Thacekr? ConsultingManny Arana? PrimaryBenjy Garnett? AttendingManny Arana Note Recipients: Manny Arana, Benjy Phan MD - [phone] [Preferred]Ventura Thacker MD Discharge: Summary:Admission Date: .02-Jul-2017 14:57:00Discharge Date: 67-Ygs-2580Peepevght Physician at Discharge: Manny Arana PAdmission Reason: Abdominal pain(1)Final Discharge Diagnoses: Acute bowel obstruction, Cecal volvulus,Hypokalemia, Magnesium deficiency,Procedures: Date: 03-Jul-2017 00:48:00Procedure Name: US GUIDED PLACEMENT LEFT IJ TLC / ELAP / ANDREIA / RIGHT COLECTOMY/ STAPLED ILEOCOLONIC ANASTAMOSIS / BILATERAL TAP BLOCK Condition at Discharge: SatisfactoryDisposition at Discharge: DC/Xfer to Swing BedVital Signs: T [id number]/7595%Date/Time07/09 7: 7: 7: 7: 7:36Range(36.6C - 37.5C ) (82 - 91 ) (18 - 18 ) (more content not included)... Note Send Summary:Discharge Summa ry Providers:Provider RoleProvider Name? ReferringManny Arana? AttendingManny Arana Note Recipients: Manny Arana MDManohar, Anand Mukund, MD Discharge: Summary:Admission Date: .09-Jul-2017 08:05:00Discharge Date: 19-[id number]-9348Tvhvoclyi Physician at Discharge: Manny Arana PAdmission Reason: Cecal VolvulusFinal Discharge Diagnoses: Cecal volvulus, Clostridium difficile colitis,Procedures: Right hemicolectomyCondition at Discharge: SatisfactoryDisposition at Discharge: Retirement FacilityVital Signs: T [id number]/6894%Date/Time07/17 6: 6: 6: 6: 6:23Range(36.4C - 36.7C ) (74 - 95 ) (16 - 18 ) (91 - 113 )/ (53 - 68 ) (93%- 98% )Physical Exam:GEN: Awake and Alert, pleasant, in NADHEAD: NCATEYES: EOMI, sclera white, without dischargeNECK: no obvious injury or abnormalityCV: RRR, S1S2, no murmurs, rubs or gallops appreciatedLUNGS: CTAB, no wheezes, rhales, rhonchi. No chest congestion, moving air wellABD: mildly tend (more content not included)... Note Send Summary:Discharge Summa ry Providers:Provider RoleProvider Name? ReferringValerie Jiang? AttendingValerie Jiang? ConsultingManny Arana? Benjy Pruitt Note Recipients: Manny Arana MDManohar, Chenguttai Jayaram, MD - [phone] [Preferred]Valerie Jiang MD Discharge: Summary:Admission Date: .26-Jul-2017 13:45:00Discharge Date: 79-Cln-2889Qvpqbzdrn Physician at Discharge: Homa Jiangdmdoron Reason: Encephalopathy; Hypercalcemia(1)Final Discharge Diagnoses: RADHA, Encephalopathy, HypercalcemiaProcedures: .Condition at Discharge: SatisfactoryDisposition at Discharge: Retirement FacilityVital Signs: T [id number]/6498%Date/Time07/29 13: 13: 13: 13: 13:52Range(36.6C - 36.8C ) (64 - 80 ) (16 - 17 ) (131 - 154 )/ (64 - 73 ) (97%- 98% )Physical Exam:Constitutional: Cachetic, awake/alert/oriented x3, no distress, calm andcooperativeEyes: PERRL, EOMI, clear scleraENMT: mucous membranes dry, no apparent injury, (more content not included)... Note Send Summary:Discharge Summa ry Providers:Provider RoleProvider Name? ReferringAria Gandhi? AttendingAria Gandhi? ConsultingClif Eid? ConsultingManny Arana? PrimaryBenjy Garnett Note Recipients: Benjy Garnett MD - [phone] [Preferred] Discharge: Summary:Admission Date: .09-Oct-2017 12:52:00Discharge Date: 49-Llp-5867Wnbahinfa Physician at Discharge: Kan Gandhi Reason: abd pain, diarrhea, weakness, not feeling well(1)Final Discharge Diagnoses: Acute encephalopathy, Clostridium difficile carrier,Clostridium difficile colitis, Diarrhea, Hypokalemia, Hypomagnesemia, Proteinmalnutrition unspecified (disorder),Procedures: NoneCondition at Discharge: SatisfactoryDisposition at Discharge: Retirement FacilityVital Signs: T [id number]/8395%Date/Time10/13 14: 14:009 14:009 14:009 14:00Range(36.8C - 37.4C ) (63 - 79 ) (16 - 17 ) (144 - 164 )/ (72 - 83 ) (94%- 98% )Highest temp of 37.4 C was recorded at 9 20:36Physic (more content not included)... Note Post Operative Note:PreOp Di agnosis: VENOFIBROSIS / CECAL VOLVULUS / SMALL BOWEL OBSTRUCTIONPost-Procedure Diagnosis: SAMEProcedure: US GUIDED PLACEMENT LEFT IJ TLC / ELAP / ANDREIA / RIGHT COLECTOMY /STAPLED ILEOCOLONIC ANASTAMOSIS / BILATERAL TAP BLOCKSurgeon: Erwin/Fellow/Other Wheel Inspector: Nura Blood Loss (mL): 50Specimen: yesFindings: CECAL VOLVULUS WITH NON VIABLE CAECUM / DISTENDED EDEMATOUS BOWEL /MULTIPLE ADHESIONS IN THE UPPER ABDOMEN / STOMACH COULD NOT BE FREED DUE TOLARGE HERNIAElectronic Signatures:Manny Arana) (Signed 03-Jul-2017 00:51) Authored: Post Operative Note, Signature/Cosignature/AttestationLast Updated: 03-Jul-2017 00:51 by Manny Arana) Note Send Summary:Discharge Summa ry Providers:Provider RoleProvider Name? ReferringSpencer Hardy? AttendingJessenia Tapia? ConsultingVentura Thacker? ConsultingDiego Obregon? ConsultingNela Collado? PrimaryBenjy Garnett? AttendingJessenia Tapia Note Recipients: Benjy Garnett MD - [phone] [Preferred]Spencer Hardy MD Discharge: Summary:Admission Date: .26-Aug-2017 02:30:00Discharge Date: 41-Baf-7766Gmsitamww Physician at Discharge: Jessenia Tapia ThereAdmission Reason: SBO(1)Final Discharge Diagnoses: Small bowel obstructionProcedures: noneCondition at Discharge: FairDisposition at Discharge: Retirement FacilityVital Signs: T [id number]/7694%Date/Time09/01 4: 4: 4: 4: 4:36Range(36.5C - 37.7C ) (72 - 83 ) (16 - 18 ) (134 - 150 )/ (60 - 77 ) (94%- 97% )Highest temp of 37.7 C was recorded at 08/31 14:41Hospital Course:admitted for SBO, treated with medical management.Now on roseann (more content not included)... Note Send Summary:Discharge Summa ry Providers:Provider RoleProvider Name? aMgui Love? Benjy Pruitt Note Recipients: Magui Stuart MDManohar, Chenguttai Jayaram, MD - [phone] [Preferred] Discharge: Summary:Admission Date: .05-Sep-2017 06:05:00Discharge Date: 63-Spa-6619Cprkhytvs Physician at Discharge: CarrolAdmission Reason: Acute encephalopathy(1)Final Discharge Diagnoses: Acute encephalopathy-resolvedProbable cause secondary to fallCortical brain contusion Severe protein calorie malnutritionProcedures: noneCondition at Discharge: satisfactoryDisposition at Discharge: [facility]: T [id number]/7094%Date/Time09/07 19: 19: 19: 19: 19:58Range(36.5C - 37C ) (73 - 99 ) (16 - 19 ) (150 - 173 )/ (70 - 80 ) (92% -98% )Highest temp of 37 C was recorded at 09/07 15:07Physical Exam:alert in NADLungs CTABCardiac normalAbdomen benignExtremities without c/c/e/eNeuro nonfocalHospital Course:82-year-old (more content not included)... Procedure Findings Note Post Operative Note:PreOp Di agnosis: VENOFIBROSIS / CECAL VOLVULUS / SMALL BOWEL OBSTRUCTIONPost-Procedure Diagnosis: SAMEProcedure: US GUIDED PLACEMENT LEFT IJ TLC / ELAP / ANDREIA / RIGHT COLECTOMY /STAPLED ILEOCOLONIC ANASTAMOSIS / BILATERAL TAP BLOCKSurgeon: SUMITResident/Fellow/Other Wheel Inspector: HANSONEstimated Blood Loss (mL): 50Specimen: yesFindings: CECAL VOLVULUS WITH NON VIABLE CAECUM / DISTENDED EDEMATOUS BOWEL /MULTIPLE ADHESIONS IN THE UPPER ABDOMEN / STOMACH COULD NOT BE FREED DUE TOLARGE HERNIAElectronic Signatures:Manny Arana) (Signed 03-Jul-2017 00:51) Authored: Post Operative Note, Signature/Cosignature/AttestationLast Updated: 03-Jul-2017 00:51 by Manny Arana) Chief Complaint abdominal pain, alternating diarrhea and constipationabdominal pain, alternating diarrhea and constipationKATHERINE JUDGE is here for a follow-up for CKD, HTN, HLD/CAD.KATHERINE JUDGE is here for a hospital follow-up .KATHERINE JUDGE is here for a hospital follow-up .KATHERINE JUDGE is here for a follow-up for anemia, mood, sleep, weight, and HTN.MCW Reason for Referral Specialty Diagnoses / Procedures Referred By Naomi young Referred To Contact Radiology Diagnoses Pneumonia of right lower lobe due to infectious organism Procedures XR chest 2 views XR chest 2 views Christ Gardiner, [address] [facility], [address] [place] [address] Referral ID Status Reason Start Date Expiration Date Visits Requested Visits Authorized [id number] Authorized Perform Procedure 06/19/2022 12/16/2022 1 1 Chief Complaint and Reason for Visit Chief Complaint Admit Date FALL WITH HIP FRACTURE July 25, 2024 4 :51pm fall July 25, 2024 5:06 pm Reason for Visit Admit Date Closed intertrochanteric fracture of rig ht hip July 25, 2024 4:51pm Elevated blood pressure reading July 4:51pm Fall July 25, 2024 4:51 pm Additional Source Comments INFORMATION SOURCE (unrecogn ized section and content) DATE CREATED AUTHOR 01/17/2018 [facility] DATE CREATED AUTHOR AUTHOR'S ORGANIZ ATION 01/21/2018 [facility] DATE CREATED AUTHOR AUTHOR'S ORGANIZ ATION 01/30/2018 [facility] DATE CREATED AUTHOR AUTHOR'S ORGANIZ ATION 12/21/2020 [facility] DATE CREATED AUTHOR AUTHOR'S ORGANIZ ATION 06/02/2022 [facility] DATE CREATED AUTHOR AUTHOR'S ORGANIZ ATION 06/14/2022 [facility] DATE CREATED AUTHOR AUTHOR'S ORGANIZ ATION 07/21/2022 [facility] DATE CREATED AUTHOR AUTHOR'S ORGANIZ ATION 09/13/2022 [facility] DATE CREATED AUTHOR AUTHOR'S ORGANIZ ATION 10/08/2022 [facility] DATE CREATED AUTHOR AUTHOR'S ORGANIZ ATION 10/16/2022 [facility] DATE CREATED AUTHOR AUTHOR'S ORGANIZ ATION 10/28/2022 [employer] [facility] Reason for Visit (unrecogniz ed section and content) Reason Comments Follow-up Bone density results -discuss meds Reason Comments Follow-up 1 week fuv HYPOXIA Specialty Diagnoses / Procedures Referred By Contac t Referred To Contact Primary Care Diagnoses Hypoxia Benign essential hypertension Procedures Follow Up In Advanced Primary [facility] - PCP Christ Gardiner DO [address] [facility], [facility] [address] [place] [address] Referral ID Status Reason Start Date Expiration Date V isits Requested Visits Authorized [id number] Authorized 06/01/2022 11/28/2022 1 1 Reason Comments Follow-up Lungs Specialty Diagnoses / Procedures Referred By Contac t Referred To Contact Primary Care Diagnoses Hypoxia Pneumonia of right lower lobe due to infectious organism Abdominal pain, unspecified abdominal location Procedures Follow Up In Advanced [facility] - PCP Christ Gardiner DO [address] [facility], [facility] [address] [place] [address] Referral ID Status Reason Start Date Expiration Date V isits Requested Visits Authorized [id number] Authorized 06/10/2022 12/07/2022 1 1 Reason Comments Follow-up Pt presents for 6 mo nth follow up- pt states that her allergies have been bothering her. Specialty Diagnoses / Procedures Referred By Naomi young Referred To Contact Primary Care Diagnoses Osteoporosis, unspecified osteoporosis type, unspecified pathological fracture presence Benign essential hypertension Coronary artery disease without angina pectoris, unspecified vessel or lesion type, unspecified whether [place] or transplanted heart Procedures Follow Up In [facility] - PCP Christ Gardiner DO [address] [facility], [facility] [address] [place] [address] Referral ID Status Reason Start Date Expiration Date V isits Requested Visits Authorized [id number] Authorized 04/15/2022 10/12/2022 1 1 Reason Comments Abdominal Pain Pt states since last night she had right sided abd pain that moved to the left side. Pt states today she started to cough as well. Pt is alert and oriented vitals taken in triage Specialty Diagnoses / Procedures Referred By Contmeron t Referred To Contact Diagnoses Abdominal pain, generalized Proctocolitis Constipation, unspecified constipation type Procedures . Akil Lucio MD [address] [place] [address] [facility] 2e Telemetry [address] [place] [address] Referral ID Status Reason Start Date Expiration Date Visits Re quested Visits Authorized [id number] 1 1 Care Teams (unrecognized sec tion and content) Seismology Teacher Relationship Specialty Start Date End Date Christ Gardiner DO [address] [facility], [facility] 1 [place] [address] PCP - General 05/19/06 Apple gAuilar, DANCE ARTIST-COMMUNITY LIVING SPECIALIST [address] [employer] [employer] [facility] [address], [address] [address] PCP - MSSP ACO Attributed Provider 08/09/21 Seismology Teacher Relationship Specialty Start Date End Date Christ Gardiner DO [address] [facility], [address] [place] [address] PCP - General 05/19/06 Apple Aguilar, DANCE ARTIST-COMMUNITY LIVING SPECIALIST [address] [employer] [facility] 3, [address] [place] [address] PCP - MSSP ACO Attributed Provider 08/09/21 Seismology Teacher Relationship Specialty Start Date End Date Christ Gardiner DO [address] [facility], [address] [place] [address] PCP - General 05/19/06 Apple Aguilar, DANCE ARTIST-COMMUNITY LIVING SPECIALIST [address] [place] [address] PCP - MSSP ACO Attributed Provider 08/09/21 Seismology Teacher Relationship Specialty Start Date End Date Christ Gardiner DO [address] [facility], [address] [place] [address] PCP - General 05/19/06 Christ Gardiner DO [address] [facility], [address] [place] [address] PCP - MSSP ACO Attributed Provider 05/10/22 Seismology Teacher Relationship Specialty Start Date End Date Saida Gardiner [id number] [place] [address] PCP - General Denture Processor 10/10/22 Seismology Teacher Relationship Specialty Start Date End Date Christ Gardiner DO [address] [facility], [address] [place] [address] PCP - General 05/19/06 Apple Aguilar, DANCE ARTIST-COMMUNITY LIVING SPECIALIST [address] [place] [address] PCP - MSSP ACO Attributed Provider 08/09/21 Team Status: Active Member Role Status Dates Dr. Kam Ocampo Sr. , DO Primary Care Provider Active Team Status: Active Member Role Status Dates Dr. Jacobo Moya , DO Emergency Provider Active Start: July 25, 2024 Dr. Kam Ocampo Sr. , DO Primary Care Provider Active Start: July 25, 2024 Dr. Hayden Diaz , DO Admit Provider Active Start: July 25, 2024 Dr. Hayden Diaz , DO Attending Provider Active Start: July 25, 2024 Team Status: Active Member Role Status Dates Dr. Jacobo Moya , DO Emergency Provider Active Start: July 25, 2024 Dr. Kam Ocampo Sr. , DO Primary Care Provider Active Start: July 25, 2024 Dr. Thanh Mclaughlin , DO Attending Provider Active Start: July 25, 2024 Scheduled Active and Recently Administ ered Medications (unrecognized section and content) Medication Order 10/14/2022 10/15/2022 10/16/2022 atorvastatin (Lipitor) tablet 10 mg 10 mg, Oral, Daily, First dose on 10/11/22 at 0915 0922 (Given - Provider: Colette Sanders, CINTHYA) 0824 (Given - Provider: Shannon Orantes, RN) 0859 (Given - Provider: Sophia Moreira, RN) azelastine (Astelin) 0.1 % nasal spray 1 spray 1 spray, Each Nostril, 2 times daily, First dose on 10/11/22 at 0915 0923 (Given - Provider: Colette Sanders RN)2099 (Given - Provider: Rena Luna, CINTHYA) 08 (Given - Provider: Shannon Orantes, RN)2052 (Given - Provider: Autumn Kelly, CINTHYA) 09 (Given - Provider: Sophia Moreira, RN) buPROPion XL (Wellbutrin XL) 24 hr tablet 150 mg 150 mg, Oral, Daily, First dose on 10/11/22 at 0915, Do not crush, chew, or split. 0922 (Given - Provider: Colette Sanders RN) 0824 (Given - Provider: Shannon Orantes, RN) 0859 (Given - Provider: Sophia Moreira, RN) cetirizine (ZyrTEC) tablet 10 mg 10 mg, Oral, Daily, First dose on 10/11/22 at 0915 0922 (Given - Provider: Colette Sanders RN) 0824 (Given - Provider: Shannon Orantes, RN) 0859 (Given - Provider: Sophia Moreira, RN) clopidogrel (Plavix) tablet 75 mg 75 mg, Oral, User specified (Once per day on Thu), First dose (after last reorder) on 9/4/23 at 0900 0824 (Given - Provider: Shannon Orantes RN) doxazosin (Cardura) tablet 2 mg 2 mg, Oral, Nightly, First dose on 10/11/22 at 2100 2044 (Given - Provider: Rena Luna RN) 2049 (Given - Provider: Autumn Kelly, CINTHYA) enoxaparin (Lovenox) syringe 40 mg 40 mg, SubCUTAneous, Every 24 hours scheduled (Daily), First dose on 10/11/22 at 0900, Indication of Use: Prophylaxis-DVT/PE, Indications: Prophylaxis of Venous Thromboembolism 0922 (Given - Provider: Colette Sanders RN) 0824 (Given - Provider: Shannon Orantes RN) 0859 (Given - Provider: Sophia Moreira RN) gabapentin (Neurontin) tablet 600 mg 600 mg, Oral, 2 times daily, First dose on 10/11/22 at 0915 0922 (Given - Provider: Colette Sanders RN)2044 (Given - Provider: Rena Luna RN) 08 (Given - Provider: Shannon Orantes RN)2049 (Given - Provider: Autumn Kelly RN) 0859 (Given - Provider: Sophia Moreira RN) isosorbide mononitrate ER (Imdur) 24 hr tablet 60 mg 60 mg, Oral, Daily, First dose on 10/11/22 at 0915, Do not chew or crush ER tablets; may be divided in half. Due to insoluble matrix embedding, ER tablets that are scored may be split. 09 (Given - Provider: Colette Sanders RN) 08 (Given - Provider: Shannon Orantes RN) 0859 (Given - Provider: Sophia Moreira RN) meropenem (Merrem) 1,000 mg in sodium chloride 0.9 % 100 mL IVPB (CANCELED) 1,000 mg, IntraVENous, at 33.3 mL/hr, Administer over 180 Minutes, Every 8 hours, First dose on 10/11/22 at 0000, Dose adjusted for CrCl 30-49 ml/min Mini-Bag Plus bag, Suspected Indication (Select all that apply): Sepsis of Unknown Etiology 0244 (Stopped - Provider: Cindy Philip RN)0933 (New Bag - Provider: Colette Sanders RN)1233 (Stopped - Provider: Colette Sanders RN) metoprolol tartrate (Lopressor) tablet 50 mg 50 mg, Oral, 2 times daily, First dose on 10/11/22 at 0915 0922 (Given - Provider: Colette Sanders RN)2044 (Given - Provider: Rena Luna, CINTHYA) 0824 (Given - Provider: Shannon Orantes RN)2050 (Given - Provider: Autumn Kelly RN) 0859 (Given - Provider: Sophia Moreira RN) mirtazapine (Remeron) tablet 30 mg 30 mg, Oral, Nightly, First dose on 10/11/22 at 2099 2044 (Given - Provider: Rena Luna RN) 2049 (Given - Provider: Autumn Kelly, CINTHYA) montelukast (Singulair) tablet 10 mg 10 mg, Oral, Nightly, First dose on 10/11/22 at 2099 2044 (Given - Provider: Rena Luna RN) 2050 (Given - Provider: Autumn Kelly RN) potassium chloride CR (Klor-Con M20) ER tablet 20 mEq 20 mEq, Oral, Daily, First dose on 10/11/22 at 0915, Best given with food and plenty of water to minimize gastric irritation. Do not crush or chew. 0922 (Given - Provider: Colette Sanders RN) 0824 (Given - Provider: Shannon Orantes RN) 0900 (Given - Provider: Sophia Moreira RN) senna-docusate sodium (Senokot-S) 8.6-50 MG tablet 2 tablet (CANCELED) 2 tablet, Oral, Daily, First dose on 10/11/22 at 0930 0922 (Given - Provider: Colette Sanders RN) therapeutic multivitamin-minerals (Theragran-M) tablet 1 tablet, Oral, Daily, First dose on 10/11/22 at 0915 0922 (Given - Provider: Colette Sanders RN) 0824 (Given - Provider: Shannon Orantes RN) 0859 (Given - Provider: Sophia Moreira RN) PRN Medication Order 10/14/2022 10/15/2022 10/16/2022 acetaminophen (Tylenol) suppository 650 mg(Linked Group 1) 650 mg, Rectal, Every 6 hours PRN, mild pain (1-3), fever, For temp greater than 100.4 F (38 C), Starting on Thu10/10/22 at 2105, Administer if oral route cannot be used. Maximum dose of acetaminophen is 4000 mg from all sources in 24 hours. 09 (See Alternative - Provider: Colette Sanders RN) 08 (See Alternative - Provider: Shannon Orantes RN)2049 (See Alternative - Provider: Autumn Kelly RN) 0859 (See Alternative - Provider: Sophia Moreira, CINTHYA) acetaminophen (Tylenol) tablet 650 mg(Linked Group 1) 650 mg, Oral, Every 6 hours PRN, mild pain (1-3), fever, For temp greater than 100.4 F (38 C), Starting on Thu10/10/22 at 2105, Maximum dose of acetaminophen is 4000 mg from all sources in 24 hours. 09 (Given - Provider: Colette Sanders RN) 08 (Given - Provider: Shannon Orantes RN)2049 (Given - Provider: Autumn Kelly, CINTHYA) 0859 (Given - Provider: Sophia Moreira, CINTHYA) dicyclomine (Bentyl) capsule 10 mg 10 mg, Oral, 4 times daily PRN, abdominal cramping, Starting on Thu10/15/22 at 1108 1145 (Given - Provider: Shannon Orantes RN)1843 (Given - Provider: Shannon Orantes RN) 0906 (Given - Provider: Sophia Moreira RN) HYDROmorphone (Dilaudid) injection 0.5 mg 0.5 mg, IntraVENous, Every 3 hours PRN, severe pain (7-10), Starting on Thu10/11/22 at 0548, If oral and IV narcotics ordered, use oral first and only use IV if oral is ineffective or cannot take oral. Do Not give oral and IV within 1 hour of each other unless specifically ordered. 1936 (Given - Provider: Rena Luna RN) 021 (Given - Provider: Rena Luna RN) ipratropium-albuterol (Duo-Neb) 0.5-2.5 mg/3 mL nebulizer solution 3 mL 3 mL, Nebulization, Every 4 hours PRN, wheezing, Starting on Thu10/10/22 at 2325 ondansetron (Zofran) injection 4 mg(Linked Group 2) 4 mg, IntraVENous, Every 6 hours PRN, nausea, vomiting, Starting on Thu10/10/22 at 2105, 1st Line. Give IV if patient is unable to take orally. If inadequate response within 60 minutes, proceed to next-line agent or contact provider if no further options ordered. ondansetron ODT (Zofran-ODT) disintegrating tablet 4 mg(Linked Group 2) 4 mg, Oral, Every 8 hours PRN, nausea, vomiting, Starting on Thu10/10/22 at 2105, 1st Line. If inadequate response within 60 minutes, proceed to next-line agent or contact provider if no further options ordered. Patient should allow tablet to dissolve on tongue. Do not remove from blister pack until just before administering. polyethylene glycol (PEG) 3350 (Miralax) packet 17 g 17 g, Oral, 2 times daily PRN, constipation, Starting on Thu10/14/22 at 1348 simethicone (Mylicon) chewable tablet 80 mg 80 mg, Oral, Every 4 hours PRN, flatulence, Starting on Thu10/14/22 at 2006 2044 (Given - Provider: Rena Luna RN) Linked Groups Order Group 1: acetaminophen (Tylenol) tablet 650 mgJump to med 650 mg, Oral, Every 6 hours PRN, mild pain (1-3), fever, For temp greater than 100.4 F (38 C), Starting on Thu10/10/22 at 2105
Maximum dose of acetaminophen is 4000 mg from all sources in 24 hours.
Or acetaminophen (Tylenol) suppository 650 mgJump to med 650 mg, Rectal, Every 6 hours PRN, mild pain (1-3), fever, For temp greater than 100.4 F (38 C), Starting on Thu10/10/22 at 2105
Administer if oral route cannot be used. Maximum dose of acetaminophen is 4000 mg from all sources in 24 hours.
Group 2: ondansetron ODT (Zofran-ODT) disintegrating tablet 4 mgJump to med 4 mg, Oral, Every 8 hours PRN, nausea, vomiting, Starting on Thu10/10/22 at 2105
1st Line. If inadequate response within 60 minutes, proceed to next-line agent or contact provider if no further options ordered. Patient should allow tablet to dissolve on tongue. Do not remove from blister pack until just before administering.
Or ondansetron (Zofran) injection 4 mgJump to med 4 mg, IntraVENous, Every 6 hours PRN, nausea, vomiting, Starting on Thu10/10/22 at 2105
1st Line. Give IV if patient is unable to take orally. If inadequate response within 60 minutes, proceed to next-line agent or contact provider if no further options ordered.
Goals (unrecognized section and content) Goals may be documented in a n alternate section FOR RECORDS PERTAINING TO PATIENTS WHO ARE OR HAVE BEEN ENROLLED IN A CHEMICAL DEPENDENCY/SUBSTANCEABUSE PROGRAM, SOME INFORMATION MAY BE OMITTED. This clinical summary was aggregated from multiple sources. Caution should be exercised in using it in the provision of clinical care. This summary normalizes information from multiple sources, and as a consequence, information in this document may materially change the coding, format and clinical context of patient data. In addition, data may be omitted in some cases. CLINICAL DECISIONS SHOULD BE BASED ON THE PRIMARY CLINICAL RECORDS. [email or web address] provides no warranty or guarantee of the accuracy or completeness of information in this document.
[2024-07-26] VITALS (24 sets, daily range): BP systolic 100–151; BP diastolic 40–73; PULSE 66–100; RESP 12–24; TEMP 36.2–36.9; O2SAT 92–100; BMI 20.9
[2024-07-26 00:51] LABS: Troponin T High Sens 2 HR 27 ng/L (<=14)
[2024-07-26 02:55] LABS: Mean Corp Hgb Conc 34.5 g/dL (32-36); Mean Corpuscular Hgb 33.2 pg (27.0-32.0); Mean Corpuscular Volume 96.3 fL (81-99); Mean Platelet Vol. 8.9 fl (6.2-12.0); Platelet Count 171 K/mm3 (150-450); RBC Distribution Width CV 14.1 % (11.6-14.6); RBC Distribution Width SD 49.8 fl (35.1-43.9); Red Blood Count 3.01 M/mm3 (4.2-5.4); White Blood Count 8.9 K/mm3 (4.4-11.0)
[2024-07-26] MEDS: oxyCODONE 5 MG Tablet PO ×4 (03:34→23:30)
[2024-07-26] MEDS: Furosemide 40 MG/4 ML Vial IV (03:40)
[2024-07-26] MEDS: Acetaminophen 500 MG Tablet 1000 MG PO ×2 (03:41→21:25)
[2024-07-26 03:58] LABS: Anion Gap 8 (5-15); BUN 12 mg/dL (4-19); BUN/Creat Ratio 12.8 RATIO (10-20); Calcium,Total 8.9 mg/dL (7.6-11.0); Carbon Dioxide 28.3 mmol/L (21.0-32.0); Chloride 99 mmol/L (98-108); EST Glomerular Filtration Rate 61 (>60); Estimated Creatinine Clearance 31.04 ml/min (50-250); Glucose 151 mg/dL (70-99); Potassium 4.4 mmol/L (3.3-5.1); Sodium Level 135 mmol/L (133-145)
[2024-07-26 04:21] LABS: Troponin T High Sens 4 HR 25 ng/L (<=14)
[2024-07-26] MEDS: Albuterol 2.5 MG/3 ML VIAL.NEB. INHALATION ×2 (07:10→11:05)
--- NOTE | 2024-07-26 09:07 | CASEMGMT ---
Addendum entered by Virginia Angel 07/26/24 09:13: Pt will need precert. SW updated. Virginia Angel DC Planning Asst. Original Note: Discharge Planning Updates sent to [facility]. Asked if pt will need precert to return. Awaiting response. Virginia Angel DC Planning Asst.
--- NOTE | 2024-07-26 10:18 | PCM.PN.HOSP ---
Reason for Visit Reason for Visit: Diagnoses Acute on chronic diastolic (congestive) heart failure (07/25/24) Displaced intertrochanteric fracture of right femur, initial encounter for closed fracture (07/25/24) Objective Data Objective Data Vital Signs: Vital Signs Temp Pulse Resp BP Pulse Ox O2 Del Method O2 Flow Rate 97.6 F L 76 18 100/50 L 97 Nasal Cannula 3 07/26/24 08:26 07/26/24 08:26 07/26/24 08:26 07/26/24 08:26 07/26/24 08:26 07/26/24 08:26 07/26/24 08:26 Oxygen Flow Rate (L/min) 3 Oxygen Delivery Method Nasal Cannula Weight: 107 lb Body Mass Index (BMI) 20.9 Intake & Output: Intake and Output for Last 24 Hours 07/24/24 07/25/24 07/26/24 23:59 23:59 23:59 Intake Total 200 / 200 Output Total 800 / 800 Balance -600 / -600 Lab / Micro Data 07/26/24 02:43 07/26/24 02:43 Labs: Laboratory Results - last 24 hr 07/25/24 14:35: WBC 7.6, RBC 3.28 L, Hgb 10.7 L, Hct 31.6 L, MCV 96.3, MCH 32.6 H, MCHC 33.9, RDW Std Deviation 49.4 H, RDW Coeff of Tamera 14.1, Plt Count 181, MPV 9.1, Immature Gran % (Auto) 0.400, Neut % (Auto) 69.2, Lymph % (Auto) 22.9, [place] % (Auto) 6.2, Eos % (Auto) 0.9, Baso % (Auto) 0.4, Absolute Neuts (auto) 5.3, Absolute Lymphs (auto) 1.75, Nucleated RBC % 0, PT 13.0, INR 1.0, APTT 27.1, Sodium 134, Potassium 5.0, Chloride 98, Carbon Dioxide 26.5, Anion Gap 9, BUN 13, Creatinine 0.92, Est GFR (MDRD) Non-Af 60, BUN/Creatinine Ratio 13.5, Glucose 126 H, Calcium 8.8 07/25/24 19:00: Urine Color Straw, Urine Clarity Clear, Urine pH 8.0, Ur Specific [place] 1.010, Urine Protein 30 H, Urine Glucose (UA) Normal, Urine Ketones Negative, Urine Occult Blood 10 H, Urine Nitrite Negative, Urine Bilirubin Negative, Urine Urobilinogen Normal, Ur Leukocyte Esterase Negative, Urine RBC 0-5 SEEN, Urine WBC 0-5 SEEN, Ur Squamous Epith Cells 0-5 SEEN, Ur Transition Epith Cell 0-5 SEEN, Urine Bacteria 0 SEEN, Urine Mucus 0 SEEN 07/25/24 22:30: Troponin T High Sens 24 H, NT pro BNP II 538 07/26/24 00:19: Troponin T Hi Sens 2 Hr 27 H 07/26/24 02:43: WBC 8.9, RBC 3.01 L, Hgb 10.0 L, Hct 29.0 L, MCV 96.3, MCH 33.2 H, MCHC 34.5, RDW Std Deviation 49.8 H, RDW Coeff of Tamera 14.1, Plt Count 171, MPV 8.9, Sodium 135, Potassium 4.4, Chloride 99, Carbon Dioxide 28.3, Anion Gap 8, BUN 12, Creatinine 0.90, Estim Creat Clear Calc 31.04 L, Est GFR (MDRD) Non-Af 61, BUN/Creatinine Ratio 12.8, Glucose 151 H, Calcium 8.9, Troponin T Hi Sens 4Hr 25 H, TSH 2.060, Blood Type O POSITIVE, Antibody Screen NEGATIVE Radiography Diagnostic Testing: Radiology Impression Hip/Pelvis X-Ray 07/25/24 15:10 IMPRESSION: Nondisplaced right intertrochanteric fracture of the proximal right femur. [facility] Chest X-Ray 07/25/24 15:15 IMPRESSION: Cardiomegaly and vascular congestion with atelectasis at the lung bases. Reading Location: [facility]-IR-1 Femur X-Ray 07/25/24 17:40 IMPRESSION: Nondisplaced intertrochanteric fracture. Reading Location: [id number] Echocardiogram 07/25/24 22:20 Interpretation Summary Hypermobile atrial septum. Normal LV size. Left ventricular systolic function is normal. The left ventricular ejection fraction is 70 %. Stage 1 diastolic dysfunction. Mild-Moderate (1-2+) anteriorly directed mitral valve insufficiency. Posterior leaflet mitral valve prolapse. Moderate pulmonary hypertension. Ordering Physician: Hayden Diaz Referring Physician: Kam Ocampo Performed By: Celeste Gore, YUKI, RVT Physical Exam Const Constitutional Narrative: Seen and examined. Patient states that she uses oxygen as needed skilled nursing. Uses CPAP diligently at night. Denies chest pain or shortness of breath. Pulse ox 97% on 3 L of oxygen but she was tapered off. She had 2 doses of Lasix 40 mg yesterday. And I think she is euvolemic in the morning today therefore does not need further Lasix today and also going for surgery therefore avoid diuretics today. BP was also low 100/40 in the morning to noon time Physical exam General: Alert, Oriented x3, Cooperative HEENT: Atraumatic, PERRLA, EOMI, Normocephalic. Oral: No Gingival or Mucosal Lesions/ Ulcerations Neck: Supple, No JVD, Negative Carotid Bruits Chest wall/Lungs: Air entry diminished in bilateral lung bases. No crepitation/rhonchi Cardiovascular: Regular rate and rhythm, Normal S1,S2, systolic murmur over cardiac apex and left SSV Abdomen: Bowel Sounds Present, Soft, Non Tender, Non-Distended : No dysuria. No renal angle tenderness. No suprapubic tenderness. Extremities: mild pedal edema, Capillary Refill Less than 3 Seconds Skin: No rashes, No breakdown Musculoskeletal: Right proximal femur/hip is tender, flexed and externally rotated. Did not attempt active or passive movement. Left hip and knee not tender. Neurological: Cranial nerves II-XII grossly intact, DTR 2+/4. No acute focal neurological deficit. Psych/Mental Status: Flat affect Assessment & Plan Assessment/Plan (1) Closed intertrochanteric fracture of right hip: QUALIFIERS: Encounter type: initial encounter Fracture alignment: displaced Qualified Code(s): S72.141A - Displaced intertrochanteric fracture of right femur, initial encounter for closed fracture (2) Acute on chronic heart failure with preserved ejection fraction (HFpEF): PLAN: Plan Patient is an 89-year-old female who presented to [facility] ED on 07/25/2024 with right hip pain after a mechanical fall. 1. Acute debility due to right hip nondisplaced intertrochanteric fracture: Patient is being admitted on [facility] floor. Hip and pelvis x-rays reviewed and agrees with nondisplaced fracture as mentioned.. Orthopedic surgeon Dr. Mclaughlin consulted. Patient is going for surgery today. PT and OT consulted. Perioperative evaluation was done, NSQIP at above average risk, mention in detail below. Pain management. 2. Mild acute on chronic HFpEF with hypoxia, history of CAD with stenting, hypertension, hyperlipidemia, history of CVA ? Last echo in 10/2022 showed EF 70%, LA enlargement but no diastolic dysfunction, no valvular issues. Chest x-ray on admit with cardiomegaly with vascular congestion and atelectasis at lung bases. Patient on home oxygen as needed in skilled nursing but required 4 L at time of admission. She was tapered off oxygen in the morning but changed to 2 L. Echo shows EF 70% with stage I diastolic dysfunction, mild to moderate, anteriorly directed MR, moderate pulmonary hypertension, RVSP 65 mmHg. Moderate TR. In the morning today, patient BP was lower side and looks euvolemic. Patient had 2 doses of 40 mg IV furosemide yesterday. Hold Lasix today and might consider after surgery depending upon the fluid status. 3. Preoperative evaluation ? NSQIP score: Patient is at above average risk of any complication answers complication given age, partially dependent functional status, CHF and hypertension. ? Labs/imaging: Hemoglobin and kidney function stable at baseline. No further labs or imaging required preoperatively. Follow-up CBC and BMP postoperatively. ? Cardiac workup: Mild HFpEF exacerbation as noted above. Repeat echocardiogram, BNP and troponins ordered. ? Medications: Okay to continue Lopressor, doxazosin, Lasix and Imdur. Holding Plavix for procedure, will defer to orthopedics on timing of restarting. ? Prior procedural complications: None. ? Recommendation: Recommend holding on procedure until cardiac workup as above has resulted and patient has been optimized from a volume status standpoint. Will keep patient n.p.o. at midnight in case procedure can be done tomorrow afternoon. Resume beta-simon after surgery when oral is allowed. 4. Acute on chronic debility, history of bilateral knee replacements ? PT/OT/case management consulted as above. Lives in [facility], will likely be okay to return there on discharge. 5. Mild chronic anemia ? Hemoglobin stable at baseline 10-11 on admission. 6. Anxiety/depression ? Stable. Continue home bupropion and mirtazapine. 7. GERD ? Continue home PPI. DVT prophylaxis: SCDs CODE STATUS: DNR CCA, DNI Clinical Impression(s) from Imaging Studies Hip/Pelvis X-Ray 07/25/24 15:10 IMPRESSION: Nondisplaced right intertrochanteric fracture of the proximal right femur. Reading Location: [facility]--1 Chest X-Ray 07/25/24 15:15 IMPRESSION: Cardiomegaly and vascular congestion with atelectasis at the lung bases. Reading Location: [facility]-IR-1 Femur X-Ray 07/25/24 17:40 IMPRESSION: Nondisplaced intertrochanteric fracture. Reading Location: [id number] Echocardiogram 07/25/24 22:20 Interpretation Summary Hypermobile atrial septum. Normal LV size. Left ventricular systolic function is normal. The left ventricular ejection fraction is 70 %. Stage 1 diastolic dysfunction. Mild-Moderate (1-2+) anteriorly directed mitral valve insufficiency. Posterior leaflet mitral valve prolapse. Moderate pulmonary hypertension. Charges/Coding Addendum Addendum: Total time of the visit including total time spent in counseling or coordination of care, (more than 50% of the total time, spent in obtaining medical information from nurses and other ancillary care providers ,explaining to the patient about labs, imaging, diagnosis and management of active complex medical conditions), discussion with orthopedic surgeon, anesthesiologist and perioperative evaluation, review of labs and imaging is 35 minutes. Visit Charges Inpatient E&M: 52702 Subs Hosp L3
[2024-07-26] MEDS: Ondansetron 4 MG/2 ML Vial IV (12:31)
[2024-07-26] MEDS: 0.9% Saline Lock 10 ML Syringe IV (12:31)
--- NOTE | 2024-07-26 15:08 | PCM.PN.HOSP ---
Reason for Visit Reason for Visit: Diagnoses Acute on chronic diastolic (congestive) heart failure (07/25/24) Displaced intertrochanteric fracture of right femur, initial encounter for closed fracture (07/25/24) Objective Data Objective Data Vital Signs: Vital Signs Temp Pulse Resp BP Pulse Ox O2 Del Method O2 Flow Rate 97.6 F L 80 19 H 145/64 H 95 Nasal Cannula 2 07/26/24 08:26 07/26/24 14:58 07/26/24 14:58 07/26/24 14:58 07/26/24 14:58 07/26/24 14:58 07/26/24 14:58 Oxygen Flow Rate (L/min) 2 Oxygen Delivery Method Nasal Cannula Weight: 107 lb Body Mass Index (BMI) 20.9 Intake & Output: Intake and Output for Last 24 Hours 07/24/24 07/25/24 07/26/24 23:59 23:59 23:59 Intake Total 200 / 200 Output Total 1000 / 1000 Balance -800 / -800 Lab / Micro Data 07/26/24 02:43 07/26/24 02:43 Labs: Laboratory Results - last 24 hr 07/25/24 14:35: WBC 7.6, RBC 3.28 L, Hgb 10.7 L, Hct 31.6 L, MCV 96.3, MCH 32.6 H, MCHC 33.9, RDW Std Deviation 49.4 H, RDW Coeff of Tamera 14.1, Plt Count 181, MPV 9.1, Immature Gran % (Auto) 0.400, Neut % (Auto) 69.2, Lymph % (Auto) 22.9, [place] % (Auto) 6.2, Eos % (Auto) 0.9, Baso % (Auto) 0.4, Absolute Neuts (auto) 5.3, Absolute Lymphs (auto) 1.75, Nucleated RBC % 0, PT 13.0, INR 1.0, APTT 27.1, Sodium 134, Potassium 5.0, Chloride 98, Carbon Dioxide 26.5, Anion Gap 9, BUN 13, Creatinine 0.92, Est GFR (MDRD) Non-Af 60, BUN/Creatinine Ratio 13.5, Glucose 126 H, Calcium 8.8 07/25/24 19:00: Urine Color Straw, Urine Clarity Clear, Urine pH 8.0, Ur Specific [place] 1.010, Urine Protein 30 H, Urine Glucose (UA) Normal, Urine Ketones Negative, Urine Occult Blood 10 H, Urine Nitrite Negative, Urine Bilirubin Negative, Urine Urobilinogen Normal, Ur Leukocyte Esterase Negative, Urine RBC 0-5 SEEN, Urine WBC 0-5 SEEN, Ur Squamous Epith Cells 0-5 SEEN, Ur Transition Epith Cell 0-5 SEEN, Urine Bacteria 0 SEEN, Urine Mucus 0 SEEN 07/25/24 22:30: Troponin T High Sens 24 H, NT pro BNP II 538 07/26/24 00:19: Troponin T Hi Sens 2 Hr 27 H 07/26/24 02:43: WBC 8.9, RBC 3.01 L, Hgb 10.0 L, Hct 29.0 L, MCV 96.3, MCH 33.2 H, MCHC 34.5, RDW Std Deviation 49.8 H, RDW Coeff of Tamera 14.1, Plt Count 171, MPV 8.9, Sodium 135, Potassium 4.4, Chloride 99, Carbon Dioxide 28.3, Anion Gap 8, BUN 12, Creatinine 0.90, Estim Creat Clear Calc 31.04 L, Est GFR (MDRD) Non-Af 61, BUN/Creatinine Ratio 12.8, Glucose 151 H, Calcium 8.9, Troponin T Hi Sens 4Hr 25 H, TSH 2.060, Blood Type O POSITIVE, Antibody Screen NEGATIVE Radiography Diagnostic Testing: Radiology Impression Hip/Pelvis X-Ray 07/25/24 15:10 IMPRESSION: Nondisplaced right intertrochanteric fracture of the proximal right femur. [facility] Chest X-Ray 07/25/24 15:15 IMPRESSION: Cardiomegaly and vascular congestion with atelectasis at the lung bases. Reading Location: [facility]-IR-1 Femur X-Ray 07/25/24 17:40 IMPRESSION: Nondisplaced intertrochanteric fracture. Reading Location: [id number] Echocardiogram 07/25/24 22:20 Interpretation Summary Hypermobile atrial septum. Normal LV size. Left ventricular systolic function is normal. The left ventricular ejection fraction is 70 %. Stage 1 diastolic dysfunction. Mild-Moderate (1-2+) anteriorly directed mitral valve insufficiency. Posterior leaflet mitral valve prolapse. Moderate pulmonary hypertension. Ordering Physician: Hayden Diaz Referring Physician: Kam Ocampo Performed By: Celeste Gore, YUKI, RVT Physical Exam Narrative Seen and examined. Patient states that she uses oxygen as needed intermediate. Uses CPAP diligently at night. Denies chest pain or shortness of breath. Pulse ox 97% on 3 L of oxygen but she was tapered off. She had 2 doses of Lasix 40 mg yesterday. And I think she is euvolemic in the morning today therefore does not need further Lasix today and also going for surgery therefore avoid diuretics today. BP was also low 100/40 in the morning to noon time Physical exam General: Alert, Oriented x3, Cooperative HEENT: Atraumatic, PERRLA, EOMI, Normocephalic. Oral: No Gingival or Mucosal Lesions/ Ulcerations Neck: Supple, No JVD, Negative Carotid Bruits Chest wall/Lungs: Air entry diminished in bilateral lung bases. No crepitation/rhonchi Cardiovascular: Regular rate and rhythm, Normal S1,S2, systolic murmur over cardiac apex and left SSV Abdomen: Bowel Sounds Present, Soft, Non Tender, Non-Distended : No dysuria. No renal angle tenderness. No suprapubic tenderness. Extremities: mild pedal edema, Capillary Refill Less than 3 Seconds Skin: No rashes, No breakdown Musculoskeletal: Right proximal femur/hip is tender, flexed and externally rotated. Did not attempt active or passive movement. Left hip and knee not tender. Neurological: Cranial nerves II-XII grossly intact, DTR 2+/4. No acute focal neurological deficit. Psych/Mental Status: Flat affect Const alert, oriented x3, no apparent distress and average body habitus General Appearance: cooperative and comfortable HEENT normocephalic, head/scalp atraumatic, hearing grossly normal bilaterally, nasal mucous membranes and turbinates normal and moist oral mucous membranes Eyes PERRL, EOMs intact bilaterally and conjunctivae normal Neck full ROM Chest inspection of chest normal Resp normal respiratory effort, normal air movement, no use of accessory muscles and clear to auscultation bilaterally Resp Narrative: Breathing comfortably on 4 L nasal cannula at rest. Mild crackles noted and bilateral bases but otherwise good air movement throughout with no wheezing noted. Cardio regular rate, regular rhythm, no murmurs and peripheral pulses 2+ throughout GI normal to inspection, nondistended, normoactive bowel sounds, soft to palpation, non-tender and non-distended Back/Spine normal ROM Extremity Extremity Narrative: Right hip with tenderness to palpation. Did not attempt any movement of the hip. Skin no rashes or lesions noted Psych mental status grossly normal Assessment & Plan Assessment/Plan (1) Closed intertrochanteric fracture of right hip: QUALIFIERS: Encounter type: initial encounter Fracture alignment: displaced Qualified Code(s): S72.141A - Displaced intertrochanteric fracture of right femur, initial encounter for closed fracture (2) Acute on chronic heart failure with preserved ejection fraction (HFpEF): PLAN: Plan Patient is an 89-year-old female who presented to [facility] ED on 07/25/2024 with right hip pain after a mechanical fall. 1. Right hip fracture ? Admit under inpatient status to [facility]. Orthopedic surgery consulted. PT/OT/case management consulted. Presented with right hip pain after mechanical fall. Hip/pelvis and femur x-rays confirmed a nondisplaced radial fracture. Per orthopedic surgery, planning for OR for right femur cephalomedullary fixation once medically optimized. Preoperative evaluation as noted below. Pain control with scheduled Tylenol, p.o. oxycodone as needed and IV Dilaudid as needed. DVT prophylaxis per orthopedic surgery. 2. Mild acute on chronic HFpEF with hypoxia, history of CAD with stenting, hypertension, hyperlipidemia, history of CVA ? Last echo in 10/2022 showed EF 70%, LA enlargement but no diastolic dysfunction, no valvular issues. Chest x-ray on admit with cardiomegaly with vascular congestion and atelectasis at lung bases. Not on home oxygen and requiring up to 4 L nasal cannula on admission to maintain appropriate oxygen saturations. Mild lower extremity edema on exam. Patient is normotensive and in normal sinus rhythm, and EKG with no ischemic changes noted. However, will obtain BNP and troponins for further evaluation now and repeat echocardiogram ordered. Will give dose of IV Lasix 40 mg now and give another dose tomorrow morning. Monitor urine output and wean supplemental oxygen as able. Okay to continue home Lopressor, doxazosin, Lasix and Imdur. Continue home statin. Holding Plavix for procedure. 3. Preoperative evaluation ? NSQIP score: Patient is at above average risk of any complication answers complication given age, partially dependent functional status, CHF and hypertension. ? Labs/imaging: Hemoglobin and kidney function stable at baseline. No further labs or imaging required preoperatively. Follow-up CBC and BMP postoperatively. ? Cardiac workup: Mild HFpEF exacerbation as noted above. Repeat echocardiogram, BNP and troponins ordered. ? Medications: Okay to continue Lopressor, doxazosin, Lasix and Imdur. Holding Plavix for procedure, will defer to orthopedics on timing of restarting. ? Prior procedural complications: None. ? Recommendation: Recommend holding on procedure until cardiac workup as above has resulted and patient has been optimized from a volume status standpoint. Will keep patient n.p.o. at midnight in case procedure can be done tomorrow afternoon. 4. Acute on chronic debility, history of bilateral knee replacements ? PT/OT/case management consulted as above. Lives in [facility], will likely be okay to return there on discharge. 5. Mild chronic anemia ? Hemoglobin stable at baseline 10-11 on admission. 6. Anxiety/depression ? Stable. Continue home bupropion and mirtazapine. 7. GERD ? Continue home PPI. DVT prophylaxis: SCDs CODE STATUS: DNR CCA, DNI Expected disposition: Likely back to intermediate, D Total clinical time spent by myself addressing the patient's medical issues, reviewing all the data, and collaborating with patient's care team: 75 minutes.
--- NOTE | 2024-07-26 15:09 | RAD_ITS ---
PROCEDURE: HIP MIN 2 VIEWS (PORTABLE) 07/26/2024 REASON FOR EXAM: FX REPAIR IN OR TECHNIQUE: Fluoroscopic images of the right hip. COMPARISON: 07/25/2024. FINDINGS: Fluoroscopic images for ORIF of a intertrochanteric right femoral fracture. Fluoroscopic time of 44.2 seconds. 4.90 mGy. See procedure report for full details. RAD/Hip Min 2 Views (Portable) IMPRESSION: As above. Reading Location: [id number]
[2024-07-26] MEDS: Lactated Ringers 1,000 ML 15 ML IV (15:45)
--- NOTE | 2024-07-26 16:22 | PCM.PRE.AN2 ---
ASA Classification* ASA Classification ASA Classification: 4 and E (HFpEF with hypoxia, requiring O2, HTN, HLD, history of CVA) Assessment & Plan Anesthesia* Anesthesia Assessment Anesthesia Assessment: Discussed sedation and/or anesthesia options, risks, benefits, and alternatives with patient/parents/legal guardian/POA. Questions invited. The patient/parents/legal guardian/POA seems to understand and agrees to proceed with anesthesia plan. Reviewed the physical assessment, medical history, allergy history and patient home medications list prior to surgery/procedure/anesthetic and documented any changes. Performed airway and anesthesia risk assessments. As per hospitalist: Mild acute on chronic HFpEF with hypoxia, history of CAD with stenting, hypertension, hyperlipidemia, history of CVA ? Last echo in 10/2022 showed EF 70%, LA enlargement but no diastolic dysfunction, no valvular issues. Chest x-ray on admit with cardiomegaly with vascular congestion and atelectasis at lung bases. Patient on home oxygen as needed in snf but required 4 L at time of admission. She was tapered off oxygen in the morning but changed to 2 L. Echo shows EF 70% with stage I diastolic dysfunction, mild to moderate, anteriorly directed MR, moderate pulmonary hypertension, RVSP 65 mmHg. Moderate TR. In the morning today, patient BP was lower side and looks euvolemic. Patient had 2 doses of 40 mg IV furosemide yesterday. Hold Lasix today and might consider after surgery depending upon the fluid status. Discussed patient's increased risk of complications due to her recent SOB, patient verbalized understanding and agreed to proceed. Anesthesia Type Anesthesia Type: General History Source History Obtained from:: Patient and Chart Anesthesia Focused Assessment* Temperature: 97.6 F Pulse Rate: 80 Blood Pressure: 145/64 Respiratory Rate: 19 Pulse Ox: 95 Oxygen Delivery Method: Nasal Cannula Oxygen Flow Rate (L/min): 2 Airway Assessment Mouth opens: >3 cm Mallampati Score: II Teeth Condition: Intact Neck Range of motion (ROM): Full ROM Labs Anesthesia Preop lab: CBC WBC 8.9 K/mm3 (4.4-11.0) 07/26/24 02:43 07/26/24 RBC 3.01 M/mm3 (4.2-5.4) L 07/26/24 02:43 07/26/24 Hgb 10.0 g/dL (12.0-15.0) L 07/26/24 02:43 07/26/24 Hct 29.0 % (37-47) L 07/26/24 02:43 07/26/24 Plt Count 171 K/mm3 (150-450) 07/26/24 02:43 07/26/24 CHEMISTRY Potassium 4.4 mmol/L (3.3-5.1) 07/26/24 02:43 07/26/24 Sodium 135 mmol/L (133-145) 07/26/24 02:43 07/26/24 BUN 12 mg/dL (4-19) 07/26/24 02:43 07/26/24 Creatinine 0.90 mg/dL (0.70-1.20) 07/26/24 02:43 07/26/24 Glucose 151 mg/dL (70-99) H 07/26/24 02:43 07/26/24 TSH 2.060 uIU/mL (0.300-4.200) 07/26/24 02:43 07/26/24 COAG PT 13.0 SECONDS (11.7-14.9) 07/25/24 14:35 07/25/24 Pre-Assessment Diagnosis/Proposed Procedure Planned Operative Procedure(s): Femur nailing (see ortho note) Anesthesia History Anesthesia History - heat regulator: Anesthesia History - heat regulator Hx Hospitalization Any Problems With Anesthesia No 07/26/24 03:31 Cholinesterase deficiency No 07/26/24 03:31 You/Your Family Experience No 07/26/24 03:31 fever (hyperthermia) with Relationship Recent Exposure to Contagious No 07/26/24 03:31 Disease Does patient have nerve No 07/26/24 03:31 stimulator Patient instructed to have No 07/26/24 03:31 device shut off --Does patient have Pacemaker No 07/26/24 13:46 or ICD? When Was Last Pacemaker Check QUESTION #4 FULL TEXT: You/Your Family Experience fever (hyperthermia) with Anesthesia Last Oral Intake Last Oral intake: Last Oral Intake NPO since 00:00 07/26/24 13:46 Meds taken in AM with sips of Yes 07/26/24 13:46 water? Meds patient instructed to oxycodone 07/26/24 13:46 take am of surgery PONV PONV - heat regulator: PONV - heat regulator Female HX of Motion Sickness HX of N/V After Surgery Non-Smoker Duration of Surgery greater than 60 minutes Number of Risk Factors PONV Score Height & Weight Height & Weight: Anesthesia: Height & Weight Height 5 ft 07/26/24 13:46 Weight: 48.534 kg 07/26/24 13:46 Body Mass Index (BMI) 20.9 07/26/24 13:46 Respiratory Assessment Respiratory Assessment - heat regulator: Respiratory Tract Infection Hx - heat regulator Hx Respiratory Tract Infection No 07/26/24 03:31 STOP Sleep Apnea STOP Sleep Apnea - heat regulator: STOP Sleep Apnea - heat regulator Hx Hypertension Yes 07/25/24 18:26 Hx Sleep Apnea Yes 07/25/24 18:26 CPAP Yes 07/25/24 18:26 BIPAP No 07/25/24 18:26 Do you snore loudly (louder than talking or can be heard Do you often feel tired/ fatigued/ sleepy during daytime? Has anyone observed you stop breathing during sleep? STOP Results Positive 07/25/24 18:26 QUESTION #5 FULL TEXT : Do you snore loudly (louder than talking or can be heard through closed doors)? 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 Specify any problems Hx of Preganancy in last 3 No 07/25/24 18:26 Months Nurse Filling Out Transfusion [id number] 07/25/24 18:26 & Questions: Date: 07/25/24 07/25/24 18:26 Time: 18:35 07/25/24 18:26 Patient unable to answer at this time (ie. confused, unrespo /Reproduction History /Reproductive History - heat regulator: /Reproductive Hx- heat regulator Hx Now No 07/26/24 03:31 Gestational Age (in weeks): EDC: Hx Hx Para Hx Section SAB No 07/26/24 03:31 Active Medications Active Medications: Current Medications Generic Name Dose Route Start Last Admin Trade Name Freq PRN Reason Stop Dose Admin Acetaminophen 1,000 mg 07/25/24 22:00 07/26/24 13:49 Acetaminophen 500 Mg Tablet PO Not Given Q8 HUMBERTO Albuterol Sulfate 2.5 mg 07/26/24 00:00 07/26/24 11:05 Albuterol 2.5 Mg/3 Ml Vial.Neb. INHALATION 2.5 mg Q4HWA.RT HUMBERTO Administration Atorvastatin Calcium 40 mg 07/25/24 22:00 07/25/24 22:24 Atorvastatin Calcium 40 Mg Tablet PO 40 mg QHS HUMBERTO Administration Bupropion HCl 150 mg 07/26/24 10:00 07/26/24 09:14 Bupropion (Xl) 150 Mg Tablet.Xl PO Not Given DAILY HUMBERTO Doxazosin Mesylate 2 mg 07/26/24 10:00 07/26/24 09:13 Doxazosin 1 Mg Tablet PO Not Given DAILY HUMBERTO Furosemide 20 mg 07/26/24 10:00 07/26/24 08:23 Furosemide 20 Mg Tablet PO Not Given DAILY HUMBERTO Protocol Hydromorphone HCl 0.5 mg 07/25/24 20:49 07/25/24 22:16 Hydromorphone 0.5 Mg/0.5 Ml Syringe IV 0.5 mg Q4H PRN PRN Administration Pain Score 6-10 Sodium Chloride 250 mls @ 15 mls/hr 07/25/24 18:28 IV .[id number] PRN Saline Flush Sodium Chloride 250 mls @ 15 mls/hr 07/25/24 18:28 IV .[id number] PRN Additional IVPB Infusion Lactated Ringer's 1,000 mls @ 15 mls/hr 07/26/24 15:45 IV .Q48H HUMBERTO Vancomycin HCl 1,000 mg in 200 mls @ 200 mls/hr 07/26/24 15:57 Vancomycin IV 07/26/24 16:56 PREOP ONE Isosorbide Mononitrate 30 mg 07/26/24 10:00 Isosorbide Mononitrate 30 Mg Tablet PO DAILY [facility] Protocol Loratadine 10 mg 07/26/24 10:00 07/26/24 08:23 Loratadine 10 Mg Tablet PO Not Given DAILY HUMBERTO Melatonin 3 mg 07/25/24 22:00 Melatonin 3 Mg Tablet PO QHS PRN PRN INSOMNIA Metoprolol Tartrate 25 mg 07/25/24 22:00 07/26/24 09:13 Metoprolol Tartrate 25 Mg Tablet PO Not Given BID [facility] Protocol Mirtazapine 30 mg 07/25/24 22:00 07/25/24 22:25 Mirtazapine 30 Mg Tablet PO 30 mg QHS [facility] Administration Montelukast Sodium 10 mg 07/26/24 10:00 07/26/24 08:23 Montelukast 10 Mg Tablet PO Not Given DAILY HUMBERTO Multivitamins 1 tablet 07/26/24 08:00 07/26/24 08:23 Multivitamins,Therapeutic [facility]t [facility] Ondans[facility]ron HCl 4 mg 07/25/24 18:26 07/26/24 12:31 Ondansetron 4 Mg/2 Ml Vial IV 4 mg Q8H PRN PRN Administration NAUSEA/VOMITING Oxycodone HCl 5 mg 07/25/24 18:26 07/26/24 10:54 Oxycodone 5 Mg Tablet PO 5 mg Q4H PRN PRN Administration Pain Score 6-10 Pantoprazole Sodium 40 mg 07/26/24 10:00 07/26/24 08:23 Pantoprazole Sodium 40 Mg Tablet PO Not Given DAILY [facility] Potassium Chloride 20 meq 07/26/24 10:00 07/26/24 08:23 Potassium Chloride Oral Tablet 20 Meq PO Not Given DAILY [facility] Senna/Docusate Sodium 1 tablet 07/26/24 22:00 Senna/Docusate Sodium 1 Tablet PO BID [facility] Sodium Chloride 10 - 40 ml 07/25/24 18:28 07/26/24 12:31 0.9% Saline Lock 10 Ml Syringe IV 10 ml UD PRN Administration SALINE FLUSH PFSH Medical History Polyneuropathy PVD (peripheral vascular disease) Osteoporosis Hypothyroidism GERD (gastroesophageal reflux disease) Hypertensive heart and chronic kidney disease stage 3 Anxiety Asthma Sleep apnea COPD (chronic obstructive pulmonary disease) Gout CKD (chronic kidney disease) stage 3, GFR 30-59 ml/min Major depressive disorder CHF (congestive heart failure) Home Medications ?Medication ?Instructions ?Recorded ?Last Taken ?Type acetaminophen 500 mg tablet 500 mg PO BID [ain 07/25/24 Unknown History atorvastatin 40 mg tablet 40 mg PO DAILY hyperlipidemia 07/25/24 Unknown History azelastine 137 mcg (0.1 %) nasal intranasal allergies 07/25/24 Unknown History spray budesonide 0.5 mg/2 mL suspension mg mass spectroscopist 07/25/24 Unknown History for nebulization bupropion HCl 150 mg 24 hr tablet, 150 mg PO DAILY . 07/25/24 Unknown History extended release calcium carbonate PO . 07/25/24 Unknown History cetirizine 5 mg tablet 5 mg PO DAILY . 07/25/24 Unknown History clopidogrel 75 mg tablet 75 mg PO DAILY . 07/25/24 Unknown History dicyclomine 10 mg capsule 10 mg PO TID . 07/25/24 Unknown History doxazosin 2 mg tablet 2 mg PO DAILY . 07/25/24 Unknown History furosemide 20 mg tablet 20 mg PO DAILY . 07/25/24 Unknown History gabapentin 100 mg capsule PO . 07/25/24 Unknown History ipratropium 0.5 mg-albuterol 3 mg ml . 07/25/24 Unknown History (2.5 mg base)/3 mL nebulization soln isosorbide mononitrate 30 mg 30 mg PO DAILY . 07/25/24 Unknown History tablet,extended release 24 hr metoprolol tartrate 25 mg tablet 25 mg PO BID . 07/25/24 Unknown History mirtazapine 30 mg tablet 30 mg PO QHS . 07/25/24 Unknown History montelukast 10 mg tablet 10 mg PO DAILY . 07/25/24 Unknown History multivitamin with folic acid 400 1 tab PO DAILY . 07/25/24 Unknown History mcg tablet (Daily-Carmelo (with folic acid)) pantoprazole 40 mg tablet,delayed 40 mg PO DAILY . 07/25/24 Unknown History release potassium chloride 20 mEq 20 meq PO DAILY . 07/25/24 Unknown History tablet,extended release(part/cryst) sennosides 8.6 mg-docusate sodium 1 tab PO DAILY . 07/25/24 Unknown History 50 mg tablet (Senexon-S) Allergy/AdvReac Type Severity Reaction Status Date / Time cephalexin Allergy PT UNSURE Verified 07/25/24 14:52 OF REACTION clarithromycin Allergy PT UNSURE Verified 07/25/24 14:52 OF REACTION clindamycin Allergy PT UNSURE Verified 07/25/24 14:52 OF REACTION erythromycin base Allergy PT UNSURE Verified 07/25/24 14:52 OF REACTION eszopiclone Allergy PT UNSURE Verified 07/25/24 14:52 OF REACTION Fish Containing Products Allergy PT UNSURE Verified 07/25/24 14:52 (seafood) OF REACTION fish derived Allergy PT UNSURE Verified 07/25/24 14:52 OF REACTION lincomycin Allergy PT UNSURE Verified 07/25/24 14:52 OF REACTION lorazepam Allergy PT UNSURE Verified 07/25/24 14:52 OF REACTION mushroom (mushrooms) Allergy PT UNSURE Verified 07/25/24 14:52 OF REACTION NSAIDS (Non-Steroidal Allergy PT UNSURE Verified 07/25/24 14:52 Anti-Inflamma OF REACTION Penicillins Allergy PT UNSURE Verified 07/25/24 14:52 OF REACTION rofecoxib Allergy PT UNSURE Verified 07/25/24 14:52 OF REACTION salicylates Allergy PT UNSURE Verified 07/25/24 14:52 OF REACTION temazepam Allergy PT UNSURE Verified 07/25/24 14:52 OF REACTION Tetracyclines Allergy PT UNSURE Verified 07/25/24 14:52 OF REACTION trazodone Allergy PT UNSURE Verified 07/25/24 14:52 OF REACTION Surgical History History of cataract surgery History of lysis of adhesions Hx of hysterectomy Hx of total knee replacement Presence of aortocoronary bypass graft Social History Smoking Status: Never smoker Review of Systems (Anesthesia) ROS Narrative System reviewed and no additional complaints, except as documented. Physical Exam Const alert, oriented x3 and average body habitus Resp normal respiratory effort, normal air movement and clear to auscultation bilaterally Cardio regular rate, regular rhythm, no murmurs and diaphoretic
[2024-07-26] MEDS: Vancomycin IV 1,000 MG/200 ML BAG 200 MG IV (17:03)
[2024-07-26] MEDS: Bupiv/Epi 0.25% 30 ML Vial (17:55)
--- NOTE | 2024-07-26 18:18 | OP.PCM_ITS ---
Operative Report (Standard) Operative Information Date of Procedure: 07/26/24 Pre-Operative Diagnosis: Right hip intertrochanteric femur fracture Post-Operative Diagnosis: Same Surgery/Procedure Performed: Right hip cephalomedullary fixation automatic silk screen printer: No Type of Anesthesia: General RN Documented Start/Stop Times: Operation Date: 07/26/24 16:15 Case Time Into Pre-Op 07/26/24 15:29 Anesthesia Start 07/26/24 16:37 Into Room 07/26/24 16:37 Procedure Start 07/26/24 17:27 Procedure End 07/26/24 18:00 Procedure Start Time: 17:27 Procedure Stop Time: 18:00 Select all DRAINS/GRAFTS/IMPLANTS that apply: Prosthetic device Prosthetic device details: Synthes short TFN size 10 Estimated Blood Loss: 10 Specimen collected: No Description of surgery: Preoperative diagnosis: Right hip intertrochanteric femur fracture Postoperative diagnosis: Same Procedure: Cephalo-medullary fixation right hip Implants: Synthes short nail 130 deg 10 mm diameter 90 mm helical blade 32 mm screw Anesthesia: General EBL: 10 Complications: None Condition: Stable to PACU Indication for procedure: 89-year-old female patient with ground-level fall sustaining injury to hip. Fracture demonstrated intertrochanteric femur fracture pattern. Risk benefits and alternatives were reviewed including risk of bleeding infection nerve, artery, bone, tissue damage, blood clot need for further surgery and continued pain. Procedure: Patient met in the preoperative holding area once again the operative extremity was identified by both patient and physician and was marked. Patient was met by anesthesia and IV was started . patient was brought back to the to the operating room anesthesia was started. Patient was then positioned on the fracture table all bony prominences were well-padded. patient was then positioned with abduction internal rotation and traction and fluoroscopy was brought in to ensure that an adequate reduction could be performed. Patient was then prepped and draped in usual sterile fashion and timeout was called to ensure the proper patient procedure and extremity were being contemplated. Fluoroscopy was used to sherlyn the tip of the greater trochanter and a 3 fingerbreadth incision was made 2 finger breaths proximal to the tip of the greater trochanter. Was carried carried down through the skin and subcutaneous tissue as well as the gluteal fascia. Guidepin was then inserted through the tip of the greater trochanter directed towards the level of lesser trochanter this was checked in both AP and lateral projections. An opening reamer was performed. Following this was the insertion of the nail the appropriate height jig was used and a triple trocar sleeve was advanced to the skin and a stab incision was made at the trocar was inserted to the level of the bone and a guidepin was placed into the femoral neck and head checked on both AP and lateral projections. This was then measured and appropriately sized helical blade was inserted the nail was locked proximally the fracture was compressed and a locking screw was placed distally the same incision was extended slightly distally to allow the insertion of the trocar for the transverse screw. This was then drilled and measured under fluoroscopy and the appropriate size screw was inserted. Final AP and lateral projections were saved to the PACS system of the entire construct the wounds were thoroughly irrigated the fascia was closed with #1 [id number] Vicryls followed by 2-0 Vicryl in the subcutaneous tissues followed by george in the skin. 0.5% Marcaine with epinephrine was injected into the subcutaneous tissues dressing was applied form of Xeroform 4 x 4 ABD and Ioban tape. Patient tolerated procedure well there is no intraoper ative complications and was brought back to the PACU in stable condition. Surgical Findings: Intertrochanteric femur fracture Complications Complications: No
--- NOTE | 2024-07-26 18:32 | PCM.POST.ANE ---
Anesthesia: Postop Eval I Current Vital Signs Temperature: 97.7 F Pulse Rate: 100 Blood Pressure: 151/61 Respiratory Rate: 24 Pulse Ox: 100 Oxygen Delivery Method: Non-Rebreather Oxygen Flow Rate (L/min): 15 Assessment Airway patent: Yes Spontaneous unlabored respirations: Yes Mental status: Awake nausea: No Vomiting: No Anesthesia Complication: No Fluid Hydration Crystalloid volume administer (ml): 600 Total IV fluid infused: 600 Progress Note Post-operative progress note: VSS see PACU notes for detaILS Anesthesia document: Postop Eval 1 completed: Yes
--- NOTE | 2024-07-26 18:43 | POSTOPAN2_ITS ---
Anesthesia Postop Eval I Sum Postop Eval Completion status Anesthesia document: Postop Eval 1 completed: Yes Anesthesia Postop Eval I Summary Anesthesia Postop Eval I Summary: Anesthesia Postop Eval I: Assessment Summary Airway patent Yes 07/26/24 18:33 REGULATORY AFFAIRS SPECIALIST.DBAK Spontaneous unlabored Yes 07/26/24 18:33 REGULATORY AFFAIRS SPECIALIST.DBAK respirations Mental status Awake 07/26/24 18:33 REGULATORY AFFAIRS SPECIALIST.DBAK nausea No 07/26/24 18:33 REGULATORY AFFAIRS SPECIALIST.DBAK Vomiting No 07/26/24 18:33 REGULATORY AFFAIRS SPECIALIST.DBAK Anesthesia Postop Eval I: Fluid Summary Crystalloid volume administer 600 07/26/24 18:33 REGULATORY AFFAIRS SPECIALIST.DBAK (ml) Colloids volume administered ( ml) Blood Product volume administered (ml) Total IV fluid infused 600 07/26/24 18:33 REGULATORY AFFAIRS SPECIALIST.DBAK Anesthesia Postop Eval I: Summary Notes Anesthesia Complication No 07/26/24 18:33 REGULATORY AFFAIRS SPECIALIST.DBAK Anesthesia Complication Comment: Post-operative progress note VSS see PACU notes 07/26/24 18:33 REGULATORY AFFAIRS SPECIALIST.DBAK for detaILS Anesthesia: Postop Eval II Evaluation Mental status: Awake Pain Level: 0 nausea: No Vomiting: No Complications Anesthesia Complication: No
--- NOTE | 2024-07-26 18:43 | PCM.POSTANE2 ---
Anesthesia Postop Eval I Sum Postop Eval Completion status Anesthesia document: Postop Eval 1 completed: Yes Anesthesia Postop Eval I Summary Anesthesia Postop Eval I Summary: Anesthesia Postop Eval I: Assessment Summary Airway patent Yes 07/26/24 18:33 ABLE BODIED TANKERMAN.DBAK Spontaneous unlabored Yes 07/26/24 18:33 ABLE BODIED TANKERMAN.DBAK respirations Mental status Awake 07/26/24 18:33 ABLE BODIED TANKERMAN.DBAK nausea No 07/26/24 18:33 ABLE BODIED TANKERMAN.DBAK Vomiting No 07/26/24 18:33 ABLE BODIED TANKERMAN.DBAK Anesthesia Postop Eval I: Fluid Summary Crystalloid volume administer 600 07/26/24 18:33 ABLE BODIED TANKERMAN.DBAK (ml) Colloids volume administered ( ml) Blood Product volume administered (ml) Total IV fluid infused 600 07/26/24 18:33 ABLE BODIED TANKERMAN.DBAK Anesthesia Postop Eval I: Summary Notes Anesthesia Complication No 07/26/24 18:33 ABLE BODIED TANKERMAN.DBAK Anesthesia Complication Comment: Post-operative progress note VSS see PACU notes 07/26/24 18:33 ABLE BODIED TANKERMAN.DBAK for detaILS Anesthesia: Postop Eval II Evaluation Mental status: Awake Pain Level: 0 nausea: No Vomiting: No Complications Anesthesia Complication: No
[2024-07-26] MEDS: Lactated Ringers 1,000 ML 125 ML IV (20:15)
[2024-07-26 20:57] LABS: Hematocrit 29.3 % (37-47); Hemoglobin 9.7 g/dL (12.0-15.0)
[2024-07-26] MEDS: Mirtazapine 30 MG Tablet PO (21:25)
[2024-07-26] MEDS: Atorvastatin Calcium 40 MG Tablet PO (21:25)
[2024-07-26] MEDS: Senna/Docusate Sodium 1 Tablet PO (21:25)
[2024-07-26] MEDS: Metoprolol Tartrate 25 MG Tablet PO (21:25)
[2024-07-27] VITALS (14 sets, daily range): BP systolic 111–162; BP diastolic 47–99; PULSE 60–96; RESP 12–20; TEMP 36.4–37.1; O2SAT 90–100
[2024-07-27] MEDS: HYDROmorphone 0.5 MG/0.5 ML SYRINGE IV (01:54)
[2024-07-27] MEDS: 0.9% Saline Lock 10 ML Syringe IV (01:55)
[2024-07-27] MEDS: oxyCODONE 5 MG Tablet PO ×3 (04:03→13:51)
[2024-07-27 05:44] LABS: Absolute Lymphocyte Count 0.91 X10^3/uL (0.83-4.51); Absolute Neutrophil Count 9.4 X10^3/uL (2.0-7.7); Basophil# 0.01 X10^3/uL; Basophil% 0.1 % (0-1); Lymphocyte # 0.91 X10^3/ul (0.83-4.51); Lymphocyte % 8.5 % (19-41); Mean Corp Hgb Conc 33.3 g/dL (32-36); Mean Corpuscular Volume 98.9 fL (81-99); Mean Platelet Vol. 9.3 fl (6.2-12.0); Monocyte# 0.31 X10^3/uL; Monocyte% 2.9 % (0-10); NRBC Flagged by Analyzer 0 % (0-5); Neutrophil # 9.41 X10^3/uL (2.7-7.7); Neutrophil % 88.1 % (47-70); Platelet Count 152 K/mm3 (150-450); RBC Distribution Width CV 14.2 % (11.6-14.6); RBC Distribution Width SD 51.3 fl (35.1-43.9); Red Blood Count 2.73 M/mm3 (4.2-5.4); White Blood Count 10.7 K/mm3 (4.4-11.0)
[2024-07-27 06:21] LABS: Anion Gap 9 (5-15); BUN 13 mg/dL (4-19); BUN/Creat Ratio 16.5 RATIO (10-20); Calcium,Total 8.8 mg/dL (7.6-11.0); Chloride 99 mmol/L (98-108); Creatinine, Serum 0.79 mg/dL (0.70-1.20); EST Glomerular Filtration Rate 72 (>60); Estimated Creatinine Clearance 34.91 ml/min (50-250); Glucose 140 mg/dL (70-99); Potassium 4.6 mmol/L (3.3-5.1); Sodium Level 135 mmol/L (133-145)
[2024-07-27] MEDS: Acetaminophen 500 MG Tablet 1000 MG PO ×3 (06:50→22:00)
[2024-07-27] MEDS: Albuterol 2.5 MG/3 ML VIAL.NEB. INHALATION ×2 (07:10→19:05)
[2024-07-27] MEDS: Multivitamins,Therapeutic Tablet 1 TABLET PO (08:55)
[2024-07-27] MEDS: Potassium Chloride Oral Tablet 20 MEQ PO (08:55)
[2024-07-27] MEDS: Senna/Docusate Sodium 1 Tablet PO ×2 (08:56→21:55)
[2024-07-27] MEDS: Pantoprazole Sodium 40 MG Tablet PO (08:56)
[2024-07-27] MEDS: Loratadine 10 MG Tablet PO (08:56)
[2024-07-27] MEDS: Montelukast 10 MG Tablet PO (08:56)
[2024-07-27] MEDS: Metoprolol Tartrate 25 MG Tablet PO ×2 (08:57→21:54)
[2024-07-27] MEDS: buPROPion (XL) 150 MG TABLET.XL PO (08:57)
[2024-07-27] MEDS: Doxazosin 1 MG Tablet 2 MG PO (08:57)
[2024-07-27] MEDS: Furosemide 20 MG Tablet PO (08:58)
[2024-07-27] MEDS: Cholecalciferol (VIT D3) 25 MCG TABLET (1,000 UNITS) PO (09:10)
[2024-07-27] MEDS: APIXABAN 2.5 MG TABLET (WCH) PO ×2 (09:10→21:54)
[2024-07-27] MEDS: Calcium Carbonate 500 MG Tablet PO ×3 (10:29→17:45)
--- NOTE | 2024-07-27 13:26 | PN.ORTHO_ITS ---
Subjective Subjective Patient seen and examined. She is doing okay her pain is controlled. She complains of some mucus but otherwise no other significant concerns. Objective Data Objective Data Vital Signs: Vital Signs Temp Pulse Resp BP Pulse Ox O2 Del Method O2 Flow Rate 98.7 F 75 18 145/55 H 99 Nasal Cannula 3 07/27/24 07:45 07/27/24 08:57 07/27/24 09:00 07/27/24 08:57 07/27/24 07:45 07/27/24 09:00 07/27/24 12:59 Oxygen Flow Rate (L/min) 3 Oxygen Delivery Method Nasal Cannula Weight: 107 lb Body Mass Index (BMI) 20.9 Intake & Output: Intake and Output for Last 24 Hours 07/25/24 07/26/24 07/27/24 23:59 23:59 23:59 Intake Total 1000 / 1000 1750 / 1750 Output Total 1350 / 1350 650 / 650 Balance -350 / -350 1100 / 1100 Lab / Micro Data 07/27/24 05:04 07/27/24 05:04 Labs: Laboratory Results - last 24 hr 07/26/24 19:58: Hgb 9.7 L, Hct 29.3 L 07/27/24 05:04: WBC 10.7, RBC 2.73 L, Hgb 9.0 L, Hct 27.0 L, MCV 98.9, MCH 33.0 H, MCHC 33.3, RDW Std Deviation 51.3 H, RDW Coeff of Tamera 14.2, Plt Count 152, MPV 9.3, Immature Gran % (Auto) 0.400, Neut % (Auto) 88.1 H, Lymph % (Auto) 8.5 L, Crane % (Auto) 2.9, Eos % (Auto) 0.0, Baso % (Auto) 0.1, Absolute Neuts (auto) 9.4 H, Absolute Lymphs (auto) 0.91, Nucleated RBC % 0, Sodium 135, Potassium 4.6, Chloride 99, Carbon Dioxide 27.0, Anion Gap 9, BUN 13, Creatinine 0.79, E stim Creat Clear Calc 34.91 L, Est GFR (MDRD) Non-Af 72, BUN/Creatinine Ratio 16.5, Glucose 140 H, Calcium 8.8 Radiography Diagnostic Testing: Radiology Impression Hip X-Ray 07/26/24 15:09 IMPRESSION: As above. Reading Location: [place] [id number] Physical Exam Const alert, oriented x3 and no apparent distress Extremity Extremity Narrative: Right hip dressing clean dry intact. Right lower extremity is neurovascular intact compartments are soft palpable pedal pulses intact sensation light touch she is able to plantarflex and dorsiflex her ankle and toes Assessment & Plan Assessment/Plan (1) Closed intertrochanteric fracture of right hip: QUALIFIERS: Encounter type: initial encounter Fracture alignment: displaced Qualified Code(s): S72.141A - Displaced intertrochanteric fracture of right femur, initial encounter for closed fracture PLAN: Plan Postop day #1 right hip cephalomedullary fixation PT OT weightbearing as tolerated SCDs ADE hose Eliquis 2.5 mg twice daily for 3 weeks postop recommend holding Plavix until completion of Eliquis then may resume Dressing should be undisturbed for 5 days postop. Then she can remove prior to for shower dressing should be changed daily after that point and clean daily with antibacterial soap and warm water Patient has to follow-up in the office 2 weeks for staple removal and wound check Orthopedically stable for discharge
--- NOTE | 2024-07-27 13:41 | CASEMGMT ---
Discharge Planning Updates sent to [facility] with request to submit for precert. Virginia Angel DC Planning Asst.
--- NOTE | 2024-07-27 17:46 | PN.HOSP_ITS ---
Reason for Visit Reason for Visit: Diagnoses Acute on chronic diastolic (congestive) heart failure (07/25/24) Displaced intertrochanteric fracture of right femur, initial encounter for closed fracture (07/25/24) Objective Data Objective Data Vital Signs: Vital Signs Temp Pulse Resp BP Pulse Ox O2 Del Method O2 Flow Rate 98.6 F 88 18 119/54 L 96 Nasal Cannula 2 07/27/24 17:42 07/27/24 17:42 07/27/24 17:42 07/27/24 17:42 07/27/24 17:42 07/27/24 17:42 07/27/24 17:42 Oxygen Flow Rate (L/min) 2 Oxygen Delivery Method Nasal Cannula Weight: 107 lb Body Mass Index (BMI) 20.9 Intake & Output: Intake and Output for Last 24 Hours 07/25/24 07/26/24 07/27/24 23:59 23:59 23:59 Intake Total 1000 / 1000 1750 / 1750 Output Total 1350 / 1350 650 / 650 Balance -350 / -350 1100 / 1100 Lab / Micro Data 07/27/24 05:04 07/27/24 05:04 Labs: Laboratory Results - last 24 hr 07/26/24 19:58: Hgb 9.7 L, Hct 29.3 L 07/27/24 05:04: WBC 10.7, RBC 2.73 L, Hgb 9.0 L, Hct 27.0 L, MCV 98.9, MCH 33.0 H, MCHC 33.3, RDW Std Deviation 51.3 H, RDW Coeff of Tamera 14.2, Plt Count 152, MPV 9.3, Immature Gran % (Auto) 0.400, Neut % (Auto) 88.1 H, Lymph % (Auto) 8.5 L, Morrison % (Auto) 2.9, Eos % (Auto) 0.0, Baso % (Auto) 0.1, Absolute Neuts (auto) 9.4 H, Absolute Lymphs (auto) 0.91, Nucleated RBC % 0, Sodium 135, Potassium 4.6, Chloride 99, Carbon Dioxide 27.0, Anion Gap 9, BUN 13, Creatinine 0.79, E stim Creat Clear Calc 34.91 L, Est GFR (MDRD) Non-Af 72, BUN/Creatinine Ratio 16.5, Glucose 140 H, Calcium 8.8 Radiography Diagnostic Testing: Radiology Impression Hip X-Ray 07/26/24 15:09 IMPRESSION: As above. Reading Location: [id number] Physical Exam Narrative Seen and examined. Patient had right hip surgery yesterday. Doing well, sitting up in the chair. On 2 L of oxygen. Denies shortness of breath. Patient states that she uses oxygen as needed long term. Uses CPAP diligently at night Blood pressure is better. Physical exam General: Alert, Oriented x3, Cooperative HEENT: Atraumatic, PERRLA, EOMI, Normocephalic. Oral: No Gingival or Mucosal Lesions/ Ulcerations Neck: Supple, No JVD, Negative Carotid Bruits Chest wall/Lungs: Air entry diminished in bilateral lung bases. No crepitation/rhonchi Cardiovascular: Regular rate and rhythm, Normal S1,S2, systolic murmur over cardiac apex and left SSV Abdomen: Bowel Sounds Present, Soft, Non Tender, Non-Distended : No dysuria. No renal angle tenderness. No suprapubic tenderness. Extremities: mild pedal edema, Capillary Refill Less than 3 Seconds Skin: No rashes, No breakdown Musculoskeletal: Right proximal femur/hip is tender, flexed and externally rotated. Did not attempt active or passive movement. Left hip and knee not tender. Neurological: Cranial nerves II-XII grossly intact, DTR 2+/4. No acute focal neurological deficit. Psych/Mental Status: Flat affect Assessment & Plan Assessment/Plan (1) Closed intertrochanteric fracture of right hip: QUALIFIERS: Encounter type: initial encounter Fracture alignment: displaced Qualified Code(s): S72.141A - Displaced intertrochanteric fracture of right femur, initial encounter for closed fracture (2) Acute on chronic heart failure with preserved ejection fraction (HFpEF): PLAN: Plan Patient is an 89-year-old female who presented to [facility] ED on 07/25/2024 with right hip pain after a mechanical fall. 1. Acute debility due to right hip nondisplaced intertrochanteric fracture: Patient is being admitted on [facility] floor. Hip and pelvis x-rays reviewed and agrees with nondisplaced fracture as mentioned.. Orthopedic surgeon Dr. Borruso consulted. Patient is going for surgery today. PT and OT consulted. Perioperative evaluation was done, NSQIP at above average risk, mention in detail below. Pain management. 07/27: Patient has cephalomedullary fixation of right hip with implant. Patient is doing well. Continue PT and OT and pain control. On Eliquis 2.5 mg twice daily for DVT prophylaxis.Will require SNF 2. Mild acute on chronic HFpEF with hypoxia, history of CAD with stenting, hypertension, hyperlipidemia, history of CVA ? Last echo in 10/2022 showed EF 70%, LA enlargement but no diastolic dysfunction, no valvular issues. Chest x-ray on admit with cardiomegaly with vascular congestion and atelectasis at lung bases. Patient on home oxygen as needed in long term but required 4 L at time of admission. She was tapered off oxygen in the morning but changed to 2 L. Echo shows EF 70% with stage I diastolic dysfunction, mild to moderate, anteriorly directed MR, moderate pulmonary hypertension, RVSP 65 mmHg. Moderate TR. In the morning today, patient BP was lower side and looks euvolemic. Patient had 2 doses of 40 mg IV furosemide yesterday. Hold Lasix today and might consider after surgery depending upon the fluid status. 07/27: Blood pressure has improved. Today on furosemide 20 mg daily, increased to 40 mg oral tomorrow a.m. Continue monitor. 3. Preoperative evaluation ? NSQIP score: Patient is at above average risk of any complication answers complication given age, partially dependent functional status, CHF and hypertension. ? Labs/imaging: Hemoglobin and kidney function stable at baseline. No further labs or imaging required preoperatively. Follow-up CBC and BMP postoperatively. ? Cardiac workup: Mild HFpEF exacerbation as noted above. Repeat echocardiogram, BNP and troponins ordered. ? Medications: Okay to continue Lopressor, doxazosin, Lasix and Imdur. Holding Plavix for procedure, will defer to orthopedics on timing of restarting. ? Prior procedural complications: None. ? Recommendation: Recommend holding on procedure until cardiac workup as above has resulted and patient has been optimized from a volume status standpoint. Will keep patient n.p.o. at midnight in case procedure can be done tomorrow afternoon. Resume beta-simon after surgery when oral is allowed. 4. Acute on chronic debility, history of bilateral knee replacements ? PT/OT/case management consulted as above. Lives in [facility], will likely be okay to return there on discharge. 5. Mild chronic anemia ? Hemoglobin stable at baseline 10-11 on admission. 6. Anxiety/depression ? Stable. Continue home bupropion and mirtazapine. 7. GERD ? Continue home PPI. DVT prophylaxis: SCDs CODE STATUS: DNR CCA, DNI Clinical Impression(s) from Imaging Studies Hip/Pelvis X-Ray 07/25/24 15:10 IMPRESSION: Nondisplaced right intertrochanteric fracture of the proximal right femur. Reading Location: [facility]IR-1 Chest X-Ray 07/25/24 15:15 IMPRESSION: Cardiomegaly and vascular congestion with atelectasis at the lung bases. Reading Location: [facility]-1 Femur X-Ray 07/25/24 17:40 IMPRESSION: Nondisplaced intertrochanteric fracture. Reading Location: [id number] Echocardiogram 07/25/24 22:20 Interpretation Summary Hypermobile atrial septum. Normal LV size. Left ventricular systolic function is normal. The left ventricular ejection fraction is 70 %. Stage 1 diastolic dysfunction. Mild-Moderate (1-2+) anteriorly directed mitral valve insufficiency. Posterior leaflet mitral valve prolapse. Moderate pulmonary hypertension. Charges/Coding Visit Charges Inpatient E&M: 17982 Subs Hosp L2
[2024-07-27] MEDS: Atorvastatin Calcium 40 MG Tablet PO (21:55)
[2024-07-27] MEDS: Mirtazapine 30 MG Tablet PO (21:55)
[2024-07-28] VITALS (9 sets, daily range): BP systolic 120–141; BP diastolic 44–85; PULSE 67–98; RESP 16–18; TEMP 36.6–37.2; O2SAT 98–100
[2024-07-28] MEDS: oxyCODONE 5 MG Tablet PO ×2 (04:19→13:02)
[2024-07-28] MEDS: Albuterol 2.5 MG/3 ML VIAL.NEB. INHALATION ×2 (06:56→13:10)
--- NOTE | 2024-07-28 07:08 | PCM.PN.ORT ---
Subjective Subjective Seen and examined. Pain is better today no other complaints or concerns Objective Data Objective Data Vital Signs: Vital Signs Temp Pulse Resp BP Pulse Ox O2 Del Method O2 Flow Rate 98 F 81 16 141/85 H 98 Nasal Cannula 2 07/28/24 04:03 07/28/24 06:57 07/28/24 06:57 07/28/24 04:03 07/28/24 06:57 07/28/24 06:57 07/28/24 06:57 Oxygen Flow Rate (L/min) 2 Oxygen Delivery Method Nasal Cannula Weight: 107 lb Body Mass Index (BMI) 20.9 Intake & Output: Intake and Output for Last 24 Hours 07/26/24 07/27/24 07/28/24 23:59 23:59 23:59 Intake Total 1000 / 1000 2150 / 2150 Output Total 1350 / 1350 650 / 650 Balance -350 / -350 1500 / 1500 Lab / Micro Data 07/27/24 05:04 07/27/24 05:04 Physical Exam Const alert, oriented x3 and no apparent distress Extremity Extremity Narrative: Right hip dressing clean dry intact. Right lower extremity is neurovascular intact compartments are soft palpable pedal pulses intact sensation light touch she is able to plantarflex and dorsiflex her ankle and toes Assessment & Plan Assessment/Plan (1) Closed intertrochanteric fracture of right hip: QUALIFIERS: Encounter type: initial encounter Fracture alignment: displaced Qualified Code(s): S72.141A - Displaced intertrochanteric fracture of right femur, initial encounter for closed fracture PLAN: Plan Postop day # right hip cephalomedullary fixation PT OT weightbearing as tolerated SCDs ADE hose Eliquis 2.5 mg twice daily for 3 weeks postop recommend holding Plavix until completion of Eliquis then may resume Dressing should be undisturbed for 5 days postop. Then she can remove prior to for shower dressing should be changed daily after that point and clean daily with antibacterial soap and warm water Patient has to follow-up in the office 2 weeks for staple removal and wound check Orthopedically stable for discharge
[2024-07-28 07:40] LABS: Absolute Lymphocyte Count 2.02 X10^3/uL (0.83-4.51); Absolute Neutrophil Count 5.3 X10^3/uL (2.0-7.7); Basophil# 0.03 X10^3/uL; Basophil% 0.4 % (0-1); Eosinophil# 0.23 X10^3/uL; Eosinophils% 2.9 % (0-5); Hematocrit 22.1 % (37-47); Hemoglobin 7.3 g/dL (12.0-15.0); Lymphocyte # 2.02 X10^3/ul (0.83-4.51); Lymphocyte % 25.1 % (19-41); Mean Corpuscular Hgb 32.6 pg (27.0-32.0); Mean Corpuscular Volume 98.7 fL (81-99); Mean Platelet Vol. 9.4 fl (6.2-12.0); Monocyte# 0.47 X10^3/uL; Monocyte% 5.8 % (0-10); NRBC Flagged by Analyzer 0 % (0-5); Neutrophil % 65.7 % (47-70); Platelet Count 135 K/mm3 (150-450); RBC Distribution Width CV 14.1 % (11.6-14.6); RBC Distribution Width SD 50.4 fl (35.1-43.9); Red Blood Count 2.24 M/mm3 (4.2-5.4); White Blood Count 8.1 K/mm3 (4.4-11.0)
--- NOTE | 2024-07-28 07:53 | PCM.PN.HOSP ---
Reason for Visit Reason for Visit: Diagnoses Acute on chronic diastolic (congestive) heart failure (07/25/24) Displaced intertrochanteric fracture of right femur, initial encounter for closed fracture (07/25/24) Objective Data Objective Data Vital Signs: Vital Signs Temp Pulse Resp BP Pulse Ox O2 Del Method O2 Flow Rate 98 F 81 16 141/85 H 98 Nasal Cannula 2 07/28/24 04:03 07/28/24 06:57 07/28/24 06:57 07/28/24 04:03 07/28/24 06:57 07/28/24 06:57 07/28/24 06:57 Oxygen Flow Rate (L/min) 2 Oxygen Delivery Method Nasal Cannula Weight: 107 lb Body Mass Index (BMI) 20.9 Intake & Output: Intake and Output for Last 24 Hours 07/26/24 07/27/24 07/28/24 23:59 23:59 23:59 Intake Total 1000 / 1000 2150 / 2150 Output Total 1350 / 1350 650 / 650 Balance -350 / -350 1500 / 1500 Lab / Micro Data 07/28/24 06:55 07/27/24 05:04 Labs: Laboratory Results - last 24 hr 07/28/24 06:55: WBC 8.1, RBC 2.24 L, Hgb 7.3 L, Hct 22.1 L, MCV 98.7, MCH 32.6 H, MCHC 33.0, RDW Std Deviation 50.4 H, RDW Coeff of Tamera 14.1, Plt Count 135 L, MPV 9.4, Immature Gran % (Auto) 0.100, Neut % (Auto) 65.7, Lymph % (Auto) 25.1, Hamlin % (Auto) 5.8, Eos % (Auto) 2.9, Baso % (Auto) 0.4, Absolute Neuts (auto) 5.3, Absolute Lymphs (auto) 2.02, Nucleated RBC % 0 Physical Exam Narrative Seen and examined. Patient had right hip surgery on 07/26/2024. Patient is sleeping. Has bowel movement a day before yesterday. She said she had hysterectomy and then had 3 bowel obstructions due to adhesions which required surgery. Positive fluid balance 1150 mL Patient states that she uses oxygen as needed longterm. Uses CPAP diligently at night Blood pressure is acceptable. Physical exam General: Alert, Oriented x3, Cooperative HEENT: Atraumatic, PERRLA, EOMI, Normocephalic. Oral: No Gingival or Mucosal Lesions/ Ulcerations Neck: Supple, No JVD, Negative Carotid Bruits Chest wall/Lungs: Air entry diminished in bilateral lung bases. No crepitation/rhonchi Cardiovascular: Regular rate and rhythm, Normal S1,S2, systolic murmur over cardiac apex and left SSV Abdomen: Bowel Sounds Present, Soft, Non Tender, Non-Distended : No dysuria. No renal angle tenderness. No suprapubic tenderness. Extremities: mild pedal edema, Capillary Refill Less than 3 Seconds Skin: No rashes, No breakdown Musculoskeletal: Right hip surgical dressing is dry. No hematoma or bruise. Left hip and knee not tender. Neurological: Cranial nerves II-XII grossly intact, DTR 2+/4. No acute focal neurological deficit. Psych/Mental Status: Flat affect Assessment & Plan Assessment/Plan (1) Closed intertrochanteric fracture of right hip: QUALIFIERS: Encounter type: initial encounter Fracture alignment: displaced Qualified Code(s): S72.141A - Displaced intertrochanteric fracture of right femur, initial encounter for closed fracture (2) Acute on chronic heart failure with preserved ejection fraction (HFpEF): PLAN: Plan Patient is an 89-year-old female who presented to [facility] ED on 07/25/2024 with right hip pain after a mechanical fall. 1. Acute debility due to right hip nondisplaced intertrochanteric fracture: [facility] Hip and pelvis x-rays reviewed and agrees with nondisplaced fracture as mentioned.. Orthopedic surgeon Dr. Mclaughlin consulted. Patient is going for surgery today. PT and OT consulted. Perioperative evaluation was done, NSQIP at above average risk, mention in detail below. Pain management. 07/27: Patient has cephalomedullary fixation of right hip with implant. Patient is doing well. Continue PT and OT and pain control. On Eliquis 2.5 mg twice daily for DVT prophylaxis.Will require SNF 07/28: Patient is doing well. Orthopedic surgery follow-up reviewed. Okay for discharge from orthopedic point of view. Follow-up in 2 weeks for george removal and wound check. 2. Mild acute on chronic HFpEF with hypoxia, history of CAD with stenting, hypertension, hyperlipidemia, history of CVA ? Last echo in 10/2022 showed EF 70%, LA enlargement but no diastolic dysfunction, no valvular issues. Chest x-ray on admit with cardiomegaly with vascular congestion and atelectasis at lung bases. Patient on home oxygen as needed in longterm but required 4 L at time of admission. She was tapered off oxygen in the morning but changed to 2 L. Echo shows EF 70% with stage I diastolic dysfunction, mild to moderate, anteriorly directed MR, moderate pulmonary hypertension, RVSP 65 mmHg. Moderate TR. In the morning today, patient BP was lower side and looks euvolemic. Patient had 2 doses of 40 mg IV furosemide yesterday. Hold Lasix today and might consider after surgery depending upon the fluid status. 07/27: Blood pressure has improved. Today on furosemide 20 mg daily, increased to 40 mg oral tomorrow a.m. Continue monitor. 07/28: Patient did not had bowel movement yesterday but had on 07/26. Senna S2 tablet twice daily, MiraLAX 17 g p.o. twice daily and Dulcolax suppository ordered. She has history of 3 bowel obstructions which required surgery due to adhesions from previous hysterectomy. No chest pain or shortness of breath. Continue patient's cardiac medications. 3. Acute anemia due to blood loss: Patient baseline hemoglobin about 10.5 g% dropped to 7.3 after surgery. Anemia workup including reticulocyte panel and ferritin ordered. Iron infusion ordered. Preoperative evaluation ? NSQIP score: Patient is at above average risk of any complication answers complication given age, partially dependent functional status, CHF and hypertension. ? Labs/imaging: Hemoglobin and kidney function stable at baseline. No further labs or imaging required preoperatively. Follow-up CBC and BMP postoperatively. ? Cardiac workup: Mild HFpEF exacerbation as noted above. Repeat echocardiogram, BNP and troponins ordered. ? Medications: Okay to continue Lopressor, doxazosin, Lasix and Imdur. Holding Plavix for procedure, will defer to orthopedics on timing of restarting. ? Prior procedural complications: None. ? Recommendation: Recommend holding on procedure until cardiac workup as above has resulted and patient has been optimized from a volume status standpoint. Will keep patient n.p.o. at midnight in case procedure can be done tomorrow afternoon. Resume beta-simon after surgery when oral is allowed. 4. Acute on chronic debility, history of bilateral knee replacements ? PT/OT/case management consulted as above. Lives in [facility], will likely be okay to return there on discharge. 5. Mild chronic anemia ? Hemoglobin stable at baseline 10-11 on admission. 6. Anxiety/depression ? Stable. Continue home bupropion and mirtazapine. 7. GERD ? Continue home PPI. DVT prophylaxis: SCDs CODE STATUS: DNR CCA, DNI Clinical Impression(s) from Imaging Studies Hip/Pelvis X-Ray 07/25/24 15:10 IMPRESSION: Nondisplaced right intertrochanteric fracture of the proximal right femur. Reading Location: [facility]IR-1 Chest X-Ray 07/25/24 15:15 IMPRESSION: Cardiomegaly and vascular congestion with atelectasis at the lung bases. Reading Location: [facility]1 Femur X-Ray 07/25/24 17:40 IMPRESSION: Nondisplaced intertrochanteric fracture. Reading Location: [id number] Echocardiogram 07/25/24 22:20 Interpretation Summary Hypermobile atrial septum. Normal LV size. Left ventricular systolic function is normal. The left ventricular ejection fraction is 70 %. Stage 1 diastolic dysfunction. Mild-Moderate (1-2+) anteriorly directed mitral valve insufficiency. Posterior leaflet mitral valve prolapse. Moderate pulmonary hypertension. Charges/Coding Visit Charges Inpatient E&M: 28683 Subs Hosp L2
[2024-07-28 07:59] LABS: Anion Gap 7 (5-15); BUN 17 mg/dL (4-19); BUN/Creat Ratio 19.7 RATIO (10-20); Calcium,Total 8.8 mg/dL (7.6-11.0); Carbon Dioxide 29.4 mmol/L (21.0-32.0); Chloride 101 mmol/L (98-108); Creatinine, Serum 0.88 mg/dL (0.70-1.20); EST Glomerular Filtration Rate 63 (>60); Estimated Creatinine Clearance 31.74 ml/min (50-250); Glucose 98 mg/dL (70-99); Potassium 4.2 mmol/L (3.3-5.1); Sodium Level 137 mmol/L (133-145)
[2024-07-28 08:22] LABS: Platelet Count 133 K/mm3 (150-450); Reticulocyte Count 2.42 % (0.5-1.5)
--- NOTE | 2024-07-28 08:47 | CASEMGMT ---
Discharge Planning [employer] has obtained auth to admit. It it good thru tomorrow (07/29). SW updated. Virginia Angel DC Planning Asst.
[2024-07-28] MEDS: Calcium Carbonate 500 MG Tablet PO ×2 (09:17→12:58)
[2024-07-28] MEDS: Multivitamins,Therapeutic Tablet 1 TABLET PO (09:17)
[2024-07-28] MEDS: Pantoprazole Sodium 40 MG Tablet PO (09:18)
[2024-07-28] MEDS: Loratadine 10 MG Tablet PO (09:18)
[2024-07-28] MEDS: buPROPion (XL) 150 MG TABLET.XL PO (09:19)
[2024-07-28] MEDS: Senna/Docusate Sodium 1 Tablet 2 TABLET PO (09:19)
[2024-07-28] MEDS: Cholecalciferol (VIT D3) 25 MCG TABLET (1,000 UNITS) PO (09:20)
[2024-07-28] MEDS: Montelukast 10 MG Tablet PO (09:20)
[2024-07-28] MEDS: Potassium Chloride Oral Tablet 20 MEQ PO (09:20)
[2024-07-28] MEDS: APIXABAN 2.5 MG TABLET (WCH) PO (09:20)
[2024-07-28] MEDS: Polyethylene Glycol 3350 17 GM PACKET PO (09:21)
[2024-07-28] MEDS: Sodium Ferric Gluconat/Sucrose 250 MG in 0.9% Normal Saline (250mL Bag) 250 ML 135 MG IV (09:41)
[2024-07-28] MEDS: 0.9% Saline Lock 10 ML Syringe IV (09:41)
[2024-07-28 10:17] LABS: Ferritin 176 ng/mL (22-378); Iron 38 ug/dL (50-170); Iron Binding Capacity,Unsat 137 ug/dL (228-428); Vitamin B12 867 pg/mL (180-914)
--- NOTE | 2024-07-28 11:14 | TREXTCAR_ITS ---
Diet Diet Order/Speech Therapy: INPATIENT Hospital Diet / Speech Therapy Order(s) 07/26/24 21:06 Diet: Regular - General Routine Orders/Code Status Routine Lab Work: CBC and BMP (CBC and BMP in 1 week) DC O2, CPAP, BIPAP needs Home O2 Discharge instructions: Yes Type of respiratory needs?: Oxygen Oxygen frequency: Continuous Continuous oxygen liters per minute: 2 Wound(s) r thigh: Wound Type: Surgical Incision Problem/Diagnosis (1) Closed intertrochanteric fracture of right hip: Status: Acute Code(s): S72.141A - Displaced intertrochanteric fracture of right femur, initial encounter for closed fracture (2) Acute on chronic heart failure with preserved ejection fraction (HFpEF): Status: Acute Code(s): I50.33 - Acute on chronic diastolic (congestive) heart failure Plan Patient is an 89-year-old female who presented to [facility] ED on 07/25/2024 with right hip pain after a mechanical fall. 1. Acute debility due to right hip nondisplaced intertrochanteric fracture: Patient is being admitted on [facility] floor. Hip and pelvis x-rays reviewed and agrees with nondisplaced fracture as mentioned.. Orthopedic surgeon Dr. Mclaughlin consulted. Patient is going for surgery today. PT and OT consulted. Perioperative evaluation was done, NSQIP at above average risk, mention in detail below. Pain management. 07/27: Patient has cephalomedullary fixation of right hip with implant. Patient is doing well. Continue PT and OT and pain control. On Eliquis 2.5 mg twice daily for DVT prophylaxis.Will require SNF 07/28: Patient is doing well. Orthopedic surgery follow-up reviewed. Okay for discharge from orthopedic point of view. Follow-up in 2 weeks for george removal and wound check. 2. Mild acute on chronic HFpEF with hypoxia, history of CAD with stenting, hypertension, hyperlipidemia, history of CVA ? Last echo in 10/2022 showed EF 70%, LA enlargement but no diastolic dysfu nction, no valvular issues. Chest x-ray on admit with cardiomegaly with vascular congestion and atelectasis at lung bases. Patient on home oxygen as needed in shelter but required 4 L at time of admission. She was tapered off oxygen in the morning but changed to 2 L. Echo shows EF 70% with stage I diastolic dysfunction, mild to moderate, anteriorly directed MR, moderate pulmonary hypertension, RVSP 65 mmHg. Moderate TR. In the morning today, patient BP was lower side and looks euvolemic. Patient had 2 doses of 40 mg IV furosemide yesterday. Hold Lasix today and might consider after surgery depending upon the fluid status. 07/27: Blood pressure has improved. Today on furosemide 20 mg daily, increased to 40 mg oral tomorrow a.m. Continue monitor. 07/28: Patient did not had bowel movement yesterday but had on 07/26. Senna S2 tablet twice daily, MiraLAX 17 g p.o. twice daily and Dulcolax suppository ordered. She has history of 3 bowel obstructions which required surgery due to adhesions from previous hysterectomy. No chest pain or shortness of breath. Continue patient's cardiac medications. 3. Acute anemia due to blood loss: Patient baseline hemoglobin about 10.5 g% dropped to 7.3 after surgery. Anemia workup including reticulocyte panel and ferritin ordered. Iron infusion ordered. Preoperative evaluation ? NSQIP score: Patient is at above average risk of any complication answers complication given age, partially dependent functional status, CHF and hypertension. ? Labs/imaging: Hemoglobin and kidney function stable at baseline. No further labs or imaging required preoperatively. Follow-up CBC and BMP postoperatively. ? Cardiac workup: Mild HFpEF exacerbation as noted above. Repeat echocardiogram, BNP and troponins ordered. ? Medications: Okay to continue Lopressor, doxazosin, Lasix and Imdur. Holding Plavix for procedure, will defer to orthopedics on timing of restarting. ? Prior procedural complications: None. ? Recommendation: Recommend holding on procedure until cardiac workup as above has resulted and patient has been optimized from a volume status standpoint. Will keep patient n.p.o. at midnight in case procedure can be done tomorrow afternoon. Resume beta-simon after surgery when oral is allowed. 4. Acute on chronic debility, history of bilateral knee replacements ? PT/OT/case management consulted as above. Lives in [facility], will likely be okay to return there on discharge. 5. Mild chronic anemia ? Hemoglobin stable at baseline 10-11 on admission. 6. Anxiety/depression ? Stable. Continue home bupropion and mirtazapine. 7. GERD ? Continue home PPI. DVT prophylaxis: SCDs CODE STATUS: DNR CCA, DNI Clinical Impression(s) from Imaging Studies Hip/Pelvis X-Ray 07/25/24 15:10 IMPRESSION: Nondisplaced right intertrochanteric fracture of the proximal right femur. [facility] 07/25/24 15:15 IMPRESSION: Cardiomegaly and vascular congestion with atelectasis at the lung bases. [facility] Fem[facility] 07/25/24 17:40 IMPRESSION: Nondisplaced intertrochanteric fracture. Reading Location: [id number] Echocardiogram 07/25/24 22:20 Interpretation Summary Hypermobile atrial septum. Normal LV size. Left ventricular systolic function is normal. The left ventricular ejection fraction is 70 %. Stage 1 diastolic dysfunction. Mild-Moderate (1-2+) anteriorly directed mitral valve insufficiency. Posterior leaflet mitral valve prolapse. Moderate pulmonary hypertension. Allergies/Procedures Done in Hospital Allergies cephalexin Allergy (Verified 07/25/24 14:52) PT UNSURE OF REACTION clarithromycin Allergy (Verified 07/25/24 14:52) PT UNSURE OF REACTION clindamycin Allergy (Verified 07/25/24 14:52) PT UNSURE OF REACTION erythromycin base Allergy (Verified 07/25/24 14:52) PT UNSURE OF REACTION eszopiclone Allergy (Verified 07/25/24 14:52) PT UNSURE OF REACTION Fish Containing Products (seafood) Allergy (Verified 07/25/24 14:52) PT UNSURE OF REACTION fish derived Allergy (Verified 07/25/24 14:52) PT UNSURE OF REACTION lincomycin Allergy (Verified 07/25/24 14:52) PT UNSURE OF REACTION lorazepam Allergy (Verified 07/25/24 14:52) PT UNSURE OF REACTION mushroom (mushrooms) Allergy (Verified 07/25/24 14:52) PT UNSURE OF REACTION NSAIDS (Non-Steroidal Anti-Inflamma Allergy (Verified 07/25/24 14:52) PT UNSURE OF REACTION Penicillins Allergy (Verified 07/25/24 14:52) PT UNSURE OF REACTION rofecoxib Allergy (Verified 07/25/24 14:52) PT UNSURE OF REACTION salicylates Allergy (Verified 07/25/24 14:52) PT UNSURE OF REACTION temazepam Allergy (Verified 07/25/24 14:52) PT UNSURE OF REACTION Tetracyclines Allergy (Verified 07/25/24 14:52) PT UNSURE OF REACTION trazodone Allergy (Verified 07/25/24 14:52) PT UNSURE OF REACTION Type of Care/Length of Stay Estimated LOS: Convalescent Care Less Than 30 days Type of Care Needed: Skilled Rehab Potential: Good Prognosis: Good Additional Orders/Day of Discharge Day of Discharge: 07/28/24 Discharge Plan Admission Admit Date/Time: 07/25/24 16:51 Primary Reason for Your Visit: Right hip fracture Attending Provider: Neymar Cunningham Primary Care Provider: Kam Ocampo Sr. Consulting Providers: Thanh Mclaughlin; Hayden Diaz Discharge Orders/Prescriptions Prescriptions: New acetaminophen 500 mg Tablet 1,000 mg PO Q8 Qty: 0 0RF Rx Instructions: 1 g every 8 hourly for 1 week and then 1 g every 8 hourly as needed for se pura pain Eliquis 5 mg Tablet 2.5 mg PO BID Qty: 0 0RF Rx Instructions: For total 30 days calcium carbonate 200 mg calcium (500 mg) Tablet,Chewable 500 mg PO TIDCM Qty: 0 0RF cholecalciferol (vitamin D3) 125 mcg (5,000 unit) capsule 125 mcg PO DAILY Qty: 0 0RF furosemide 40 mg Tablet 40 mg PO DAILY Qty: 0 0RF Rx Instructions: 40 mg daily for 5 days and then 20 mg daily sennosides-docusate sodium [Stimulant Laxative Plus] 8.6-50 mg Tablet 2 tab PO BID Qty: 0 0RF polyethylene glycol 3350 [Miralax] 17 gram/dose powder 17 g PO BID 30 Days Qty: 1020 0RF Rx Instructions: Twice daily for 3 days and then once daily ferrous sulfate [FeroSul] 325 mg (65 mg iron) tablet 325 mg PO DAILY 30 Days Qty: 30 2RF ascorbic acid (vitamin C) 500 mg tablet 500 mg PO BID Qty: 60 2RF Continued atorvastatin 40 mg tablet 40 mg PO DAILY bupropion HCl 150 mg tablet extended release 24 hr 150 mg PO DAILY cetirizine 5 mg tablet 5 mg PO DAILY doxazosin 2 mg tablet 2 mg PO DAILY isosorbide mononitrate 30 mg tablet extended release 24 hr 30 mg PO DAILY mirtazapine 30 mg tablet 30 mg PO QHS montelukast 10 mg tablet 10 mg PO DAILY multivitamin with folic acid [Daily-Carmelo (with folic acid)] 400 mcg tablet 1 tab PO DAILY pantoprazole 40 mg tablet,delayed release (DR/EC) 40 mg PO DAILY potassium chloride 20 mEq tablet,ER particles/crystals 20 meq PO DAILY budesonide 0.5 mg/2 mL suspension for nebulization Patient Comments: [NO ORIGINAL SIG] gabapentin 100 mg capsule PO ipratropium-albuterol 0.5 mg-3 mg(2.5 mg base)/3 mL solution for nebulization Patient Comments: [NO ORIGINAL SIG] metoprolol tartrate 25 mg tablet 25 mg PO BID dicyclomine 10 mg capsule 10 mg PO TID azelastine 137 mcg (0.1 %) spray,non-aerosol INTRANASAL Patient Comments: [NO ORIGINAL SIG] Held clopidogrel 75 mg tablet 75 mg PO DAILY Hold Instructions: Hold while taking Eliquis for 1 month. Discontinued calcium carbonate 500 mg calcium (1,250 mg) tablet,chewable PO furosemide 20 mg tablet 20 mg PO DAILY sennosides-docusate sodium [Senexon-S] 8.6-50 mg tablet 1 tab PO DAILY acetaminophen 500 mg tablet 500 mg PO BID Referrals / Follow Up: Kam Ocampo Sr., DO [Primary Care Provider] - Within 1 Week Thanh Mclaughlin DO [Med Staff - Active Staff] - Within 2 Weeks Disposition Disposition (needs filled in before D/C Order can be placed): Group Home Facility (1) Closed intertrochanteric fracture of right hip Qualifiers: Encounter type: initial encounter Fracture alignment: displaced Qualified Code(s): S72.141A - Displaced intertrochanteric fracture of right femur, initial encounter for closed fracture
--- NOTE | 2024-07-28 11:28 | PCM.DC.SUM ---
Providers Date of Admission: 07/25/24 Date of Discharge: 07/28/24 Primary Care Physician: Dr. Kam Ocampo Sr., DO Consultations 07/25/24 18:26 Consult: Orthopedics Routine Consulting Provider: Thanh Mclaughlin Reason for Consult: right hip fracture EMERGENT Consult: No MD Notified: Yes Date Notified: 07/25/24 Time Notified: 17:00 Method of Notification: ED Physician Initiated Reason For Visit: FALL WITH HIP FRACTURE Diagnosis Discharge Diagnosis (1) Closed intertrochanteric fracture of right hip: Status: Acute Code(s): S72.141A - Displaced intertrochanteric fracture of right femur, initial encounter for closed fracture Qualifiers: Encounter type: initial encounter Fracture alignment: displaced Qualified Code(s): S72.141A - Displaced intertrochanteric fracture of right femur, initial encounter for closed fracture (2) Acute on chronic heart failure with preserved ejection fraction (HFpEF): Status: Acute Code(s): I50.33 - Acute on chronic diastolic (congestive) heart failure Plan Patient is an 89-year-old female who presented to [facility] ED on 07/25/2024 with right hip pain after a mechanical fall. 1. Acute debility due to right hip nondisplaced intertrochanteric fracture: Patient is being admitted on [facility] floor. Hip and pelvis x-rays reviewed and agrees with nondisplaced fracture as mentioned.. Orthopedic surgeon Dr. Mclaughlin consulted. Patient is going for surgery today. PT and OT consulted. Perioperative evaluation was done, NSQIP at above average risk, mention in detail below. Pain management. 07/27: Patient has cephalomedullary fixation of right hip with implant. Patient is doing well. Continue PT and OT and pain control. On Eliquis 2.5 mg twice daily for DVT prophylaxis.Will require SNF 07/28: Patient is doing well. Orthopedic surgery follow-up reviewed. Okay for discharge from orthopedic point of view. Follow-up in 2 weeks for george removal and wound check. 2. Mild acute on chronic HFpEF with hypoxia, history of CAD with stenting, hypertension, hyperlipidemia, history of CVA ? Last echo in 10/2022 showed EF 70%, LA enlargement but no diastolic dysfunction, no valvular issues. Chest x-ray on admit with cardiomegaly with vascular congestion and atelectasis at lung bases. Patient on home oxygen as needed in intermediate but required 4 L at time of admission. She was tapered off oxygen in the morning but changed to 2 L. Echo shows EF 70% with stage I diastolic dysfunction, mild to moderate, anteriorly directed MR, moderate pulmonary hypertension, RVSP 65 mmHg. Moderate TR. In the morning today, patient BP was lower side and looks euvolemic. Patient had 2 doses of 40 mg IV furosemide yesterday. Hold Lasix today and might consider after surgery depending upon the fluid status. 07/27: Blood pressure has improved. Today on furosemide 20 mg daily, increased to 40 mg oral tomorrow a.m. Continue monitor. 07/28: Patient did not had bowel movement yesterday but had on 07/26. Senna S2 tablet twice daily, MiraLAX 17 g p.o. twice daily and Dulcolax suppository ordered. She has history of 3 bowel obstructions which required surgery due to adhesions from previous hysterectomy. No chest pain or shortness of breath. Continue the above regimen. 3. Acute anemia due to blood loss: Patient baseline hemoglobin about 10.5 g% dropped to 7.3 after surgery. Anemia workup including reticulocyte panel and ferritin ordered. Iron infusion ordered. 07/27: Serum iron saturation normal 22%, iron low, TIBC low. B12 normal. Reticulocyte panel shows reactive bone marrow with high reticulocyte count 2.42% and immature reticulocyte fraction 16.8%. Prescription for ferrous sulfate and vitamin C advised. Follow-up CBC and BMP in 1 week in intermediate. Preoperative evaluation ? NSQIP score: Patient is at above average risk of any complication answers complication given age, partially dependent functional status, CHF and hypertension. ? Labs/imaging: Hemoglobin and kidney function stable at baseline. No further labs or imaging required preoperatively. Follow-up CBC and BMP postoperatively. ? Cardiac workup: Mild HFpEF exacerbation as noted above. Repeat echocardiogram, BNP and troponins ordered. ? Medications: Okay to continue Lopressor, doxazosin, Lasix and Imdur. Holding Plavix for procedure, will defer to orthopedics on timing of restarting. ? Prior procedural complications: None. ? Recommendation: Recommend holding on procedure until cardiac workup as above has resulted and patient has been optimized from a volume status standpoint. Will keep patient n.p.o. at midnight in case procedure can be done tomorrow afternoon. Resume beta-simon after surgery when oral is allowed. 4. Acute on chronic debility, history of bilateral knee replacements ? PT/OT/case management consulted as above. Lives in [facility], will likely be okay to return there on discharge. 5. Mild chronic anemia ? Hemoglobin stable at baseline 10-11 on admission. 6. Anxiety/depression ? Stable. Continue home bupropion and mirtazapine. 7. GERD ? Continue home PPI. DVT prophylaxis: SCDs CODE STATUS: DNR CCA, DNI Clinical Impression(s) from Imaging Studies Hip/Pelvis X-Ray 07/25/24 15:10 IMPRESSION: Nondisplaced right intertrochanteric fracture of the proximal right femur. Reading Location: [facility] Chest X-Ray 07/25/24 15:15 IMPRESSION: Cardiomegaly and vascular congestion with atelectasis at the lung bases. Reading Location: [facility] Femur X-Ray 07/25/24 17:40 IMPRESSION: Nondisplaced intertrochanteric fracture. Reading Location: [id number] Echocardiogram 07/25/24 22:20 Interpretation Summary Hypermobile atrial septum. Normal LV size. Left ventricular systolic function is normal. The left ventricular ejection fraction is 70 %. Stage 1 diastolic dysfunction. Mild-Moderate (1-2+) anteriorly directed mitral valve insufficiency. Posterior leaflet mitral valve prolapse. Moderate pulmonary hypertension. 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 07/25/24 cetirizine 5 mg tablet 5 mg PO DAILY . 07/25/24 clopidogrel 75 mg tablet 75 mg PO DAILY . 07/25/24 Held on 07/28/24. Instructions: Hold while taking Eliquis for 1 month. dicyclomine 10 mg capsule 10 mg PO TID . 07/25/24 doxazosin 2 mg tablet 2 mg PO DAILY . 07/25/24 gabapentin 100 mg capsule PO . 07/25/24 ipratropium 0.5 mg-albuterol 3 mg (2.5 mg base)/3 mL nebulization soln ml . 07/25/24 isosorbide mononitrate 30 mg tablet,extended release 24 hr 30 mg PO DAILY . 07/25/24 metoprolol tartrate 25 mg tablet 25 mg PO BID . 07/25/24 mirtazapine 30 mg tablet 30 mg PO QHS . 07/25/24 montelukast 10 mg tablet 10 mg PO DAILY . 07/25/24 multivitamin with folic acid 400 mcg tablet (Daily-Carmelo (with folic acid)) 1 tab PO DAILY . 07/25/24 pantoprazole 40 mg tablet,delayed release 40 mg PO DAILY . 07/25/24 potassium chloride 20 mEq tablet,extended release(part/cryst) 20 meq PO DAILY . 07/25/24 acetaminophen 500 mg tablet 1,000 mg (2 x 500 mg) PO Q8 #0 tabs 07/28/24 apixaban 5 mg tablet (Eliquis) 2.5 mg (1/2 x 5 mg) PO BID #0 tabs 07/28/24 ascorbic acid (vitamin C) 500 mg tablet 500 mg PO BID #60 tabs 07/28/24 calcium carbonate 500 mg (2.5 x 200 mg calcium (500 mg)) PO TIDCM #0 tabs 07/28/24 cholecalciferol (vitamin D3) 125 mcg (5,000 unit) capsule 125 mcg PO DAILY #0 caps 07/28/24 ferrous sulfate 325 mg (65 mg iron) tablet (FeroSul) 325 mg PO DAILY 30 days #30 tabs 07/28/24 furosemide 40 mg tablet 40 mg PO DAILY #0 tabs 07/28/24 polyethylene glycol 3350 17 gram/dose oral powder (Miralax) 17 g PO BID 1 month #1,020 grams 07/28/24 sennosides 8.6 mg-docusate sodium 50 mg tablet (Stimulant Laxative Plus) 2 tab PO BID #0 tabs 07/28/24 Physical Exam Narrative Please see exam finding on the progress note Weight / BMI Weight Weight: 107 lb Body Mass Index (BMI) 20.9 ABG / Lab / Microbiology Data 07/28/24 06:55 07/28/24 06:55 Laboratory: Laboratory Results - last 24 hr 07/28/24 06:55: WBC 8.1, RBC 2.24 L, Hgb 7.3 L, Hct 22.1 L, MCV 98.7, MCH 32.6 H, MCHC 33.0, RDW Std Deviation 50.4 H, RDW Coeff of Tamera 14.1, Plt Count 135 L, MPV 9.4, Immature Gran % (Auto) 0.100, Neut % (Auto) 65.7, Lymph % (Auto) 25.1, [place] % (Auto) 5.8, Eos % (Auto) 2.9, Baso % (Auto) 0.4, Absolute Neuts (auto) 5.3, Absolute Lymphs (auto) 2.02, Nucleated RBC % 0, Retic Count 2.42 H, Immature Retic Fraction 16.80 H, Retic Hgb Equivalent 34.0, Sodium 137, Potassium 4.2, Chloride 101, Carbon Dioxide 29.4, Anion Gap 7, BUN 17, Creatinine 0.88, Estim Creat Clear Calc 31.74 L, Est GFR (MDRD) Non-Af 63, BUN/Creatinine Ratio 19.7, Glucose 98, Calcium 8.8, Iron 38 L, Iron Saturation 22.0, Unsaturated IBC 137 L, Ferritin 176, Vitamin B12 867 D/C Instructions DC O2, CPAP, BIPAP Needs Home O2 Discharge instructions: Yes Type of respiratory needs?: Oxygen Oxygen frequency: Continuous Continuous oxygen liters per minute: 2 DC home with Oxygen: Yes Home O2 MD Review: I have reviewed the oxygen testing, and the patient qualifies for home oxygen equipment and portability. The patient is mobile in the home and the community. Meaningful Use Info Meaningful Use Meaningful Use Diagnoses (Choose all that apply): None applicable Ischemic Stroke Statin Dosing Therapy Reference: STATIN DOSE THERAPY REFERENCE: * Patients > 75 years receive moderate or high dose statin therapy. * Patients 75 years or YOUNGER should receive HIGH intensity statin dose unless contraindicated. You will be required to document reason for non-treatment if statin daily dose does not meet guidelines. HIGH DOSE STATIN THERAPY DAILY Atorvastatin > than or = to 40 mg Rosuvastatin > than or = to 20 mg Amlodipine + Atorvastatin > than or = to 2.5/40 mg Ezetimibe + Simvastatin 10/80 mg Simvastatin 80mg Discharge Plan Admission Admit Date/Time: 07/25/24 16:51 Primary Reason for Your Visit: Right hip fracture Attending Provider: Neymar Cunningham Primary Care Provider: Terrence Addison,Kam Consulting Providers: Thanh Mclaughlin; Hayden Diaz Discharge Orders/Prescriptions Prescriptions: New acetaminophen 500 mg Tablet 1,000 mg PO Q8 Qty: 0 0RF Rx Instructions: 1 g every 8 hourly for 1 week and then 1 g every 8 hourly as needed for severe pain Eliquis 5 mg Tablet 2.5 mg PO BID Qty: 0 0RF Rx Instructions: For total 30 days calcium carbonate 200 mg calcium (500 mg) Tablet,Chewable 500 mg PO TIDCM Qty: 0 0RF cholecalciferol (vitamin D3) 125 mcg (5,000 unit) capsule 125 mcg PO DAILY Qty: 0 0RF furosemide 40 mg Tablet 40 mg PO DAILY Qty: 0 0RF Rx Instructions: 40 mg daily for 5 days and then 20 mg daily sennosides-docusate sodium [Stimulant Laxative Plus] 8.6-50 mg Tablet 2 tab PO BID Qty: 0 0RF polyethylene glycol 3350 [Miralax] 17 gram/dose powder 17 g PO BID 30 Days Qty: 1020 0RF Rx Instructions: Twice daily for 3 days and then once daily ferrous sulfate [FeroSul] 325 mg (65 mg iron) tablet 325 mg PO DAILY 30 Days Qty: 30 2RF ascorbic acid (vitamin C) 500 mg tablet 500 mg PO BID Qty: 60 2RF Continued atorvastatin 40 mg tablet 40 mg PO DAILY bupropion HCl 150 mg tablet extended release 24 hr 150 mg PO DAILY cetirizine 5 mg tablet 5 mg PO DAILY doxazosin 2 mg tablet 2 mg PO DAILY isosorbide mononitrate 30 mg tablet extended release 24 hr 30 mg PO DAILY mirtazapine 30 mg tablet 30 mg PO QHS montelukast 10 mg tablet 10 mg PO DAILY multivitamin with folic acid [Daily-Carmelo (with folic acid)] 400 mcg tablet 1 tab PO DAILY pantoprazole 40 mg tablet,delayed release (DR/EC) 40 mg PO DAILY potassium chloride 20 mEq tablet,ER particles/crystals 20 meq PO DAILY budesonide 0.5 mg/2 mL suspension for nebulization Patient Comments: [NO ORIGINAL SIG] gabapentin 100 mg capsule PO ipratropium-albuterol 0.5 mg-3 mg(2.5 mg base)/3 mL solution for nebulization Patient Comments: [NO ORIGINAL SIG] metoprolol tartrate 25 mg tablet 25 mg PO BID dicyclomine 10 mg capsule 10 mg PO TID azelastine 137 mcg (0.1 %) spray,non-aerosol INTRANASAL Patient Comments: [NO ORIGINAL SIG] Held clopidogrel 75 mg tablet 75 mg PO DAILY Hold Instructions: Hold while taking Eliquis for 1 month. Discontinued calcium carbonate 500 mg calcium (1,250 mg) tablet,chewable PO furosemide 20 mg tablet 20 mg PO DAILY sennosides-docusate sodium [Senexon-S] 8.6-50 mg tablet 1 tab PO DAILY acetaminophen 500 mg tablet 500 mg PO BID Referrals / Follow Up: Kam Ocampo Sr., DO [Primary Care Provider] - Within 1 Week Thanh Mclaughlin DO [Med Staff - Active Staff] - Within 2 Weeks Disposition Disposition (needs filled in before D/C Order can be placed): Residential Facility Charges/Coding Visit Charges Inpatient E&M: 51130 Disch Hosp >30min
--- NOTE | 2024-07-28 12:12 | CASEMGMT ---
Social Work- SW met with pt and pt son, Ganga, to discuss discharge planning. SW introduced self and role; pt agreeable to meet. SW updated that precert has been obtained and physician feels pt is ready for discharge. Pt son would like to be updated with a time when available. SW remains available to follow. Plan: [facility]; return for skilled services [facility]
[2024-07-28] MEDS: Metoprolol Tartrate 25 MG Tablet PO (12:58)
[2024-07-28] MEDS: Acetaminophen 500 MG Tablet 1000 MG PO (12:59)
--- NOTE | 2024-07-28 13:11 | CASEMGMT ---
Social Work Precert has been obtained.? Physician updated and pt is ready for discharge today.? SW met with pt and they are agreeable to discharge plan as stated above.? DCA and bedside nurse notified of discharge. All final arrangements and notifications to be completed by DCA. Disposition:[facility], return under skilled level of care [facility]
--- NOTE | 2024-07-28 13:52 | CASEMGMT ---
Discharge Planning Discharge orders, signed med list, and transport time sent to [facility]. Physicians will transport pt by wheelchair at 2:30p. Nursing, SW, pt, and her son/POA (Ganga) updated. Virginia Angel DC Planning Asst.
[2024-07-28 15:16] LABS: Iron Binding Capacity,Total 175 ug/dL (250-450)
== END 2024-07-28 15:45 | disposition skilled nursing facility (03) | DRG 480 ==
LOC: ED 16:37 → MS3 17:31
PROVIDERS: Orthopaedic Surgery; Student in an Organized Health Care Education/Training Program; Admitting Provider Hospitalist; Emergency Provider Emergency Medicine; PCP Internal Medicine; Visit Provider Internal Medicine
PROC: 0QS606Z Reposition Right Upper Femur with Intramedullary Internal Fixation Device, Open Approach (ICD-10-PCS; principal; 2024-07-26 15:45)
DX: S72.144A Nondisplaced intertrochanteric fracture of right femur, initial encounter for closed fracture (principal); I50.33 Acute on chronic diastolic (congestive) heart failure; I13.0 Hypertensive heart and chronic kidney disease with heart failure and stage 1 through stage 4 chronic kidney disease, or unspecified chronic kidney disease; Z66 Do not resuscitate; N18.30 Chronic kidney disease, stage 3 unspecified; J44.9 Chronic obstructive pulmonary disease, unspecified; F32.A Depression, unspecified; I34.0 Nonrheumatic mitral (valve) insufficiency; I25.10 Atherosclerotic heart disease of native coronary artery without angina pectoris; E78.5 Hyperlipidemia, unspecified; K21.9 Gastro-esophageal reflux disease without esophagitis; F41.9 Anxiety disorder, unspecified; W18.30XA Fall on same level, unspecified, initial encounter; I07.1 Rheumatic tricuspid insufficiency; Z87.891 Personal history of nicotine dependence; Z79.51 Long term (current) use of inhaled steroids; R09.02 Hypoxemia; Z79.02 Long term (current) use of 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/antiplatelets; Z90.710 Acquired absence of both cervix and uterus; Z86.73 Personal history of transient ischemic attack (TIA), and cerebral infarction without residual deficits; R53.81 Other malaise; Z99.81 Dependence on supplemental oxygen; Z96.653 Presence of artificial knee joint, bilateral; Z79.899 Other long term (current) drug therapy; Z75.1 Person awaiting admission to adequate facility elsewhere
CPT/HCPCS: 36415; 71045; 73502; 73552; 76000; 80048; 81001; 82607; 82728; 82746; 83540; 83550; 83880; 84443; 84484; 85007; 85014; 85018; 85025; 85027; 85045; 85610; 85730; 86850; 86900; 86901; 93005; 93306; 94003; 94640; 94660; 94668; 97116; 97162; 97166; 97530; 97535; 99285; C1713; C1776; A4216; J1938; J2405; J2916

== ENCOUNTER → 2024-08-01 | Outpatient (REF) | payer MEDICARE, OTHER, MEDICAID, SELFPAY ==
--- OUTSIDE RECORDS SUMMARY | 2024-08-01 03:53 | XMS RPT_ITS | CCD ---
Author Organization [facility] Care Team Providers Care Loop Cutter Name Role Phone Tavon-Babar, Vincenta Unavailable Unavailable Tavon-Babar, Vincenta Unavailable Unavailable Hugo, Chenguttai Jayaram Unavailable Unav ailable Hugo, Chenguttai Jayaram Unavailable Unav ailable Hugo, Chenguttai Jayaram Unavailable Unav ailable Hugo, Chenguttai Jayaram Unavailable Unav ailable Hugo, Chenguttai Jayaram Unavailable Unav ailable Hugo, Chenguttai Jayaram Unavailable Unav ailable EstelitaSpencer Unavailable Unavailable Hugo, Chenguttai Jayaram Unavailable Unav ailable Melvina, Manny P Unavailable Unavailable Melvina, Manny P Unavailable Unavailable Melvina, Manny P Unavailable Unavailable Melvina, Manny P Unavailable Unavailable Melvina, Manny P Unavailable Unavailable Hugo, Chenguttai Jayaram [...] Unavailable Unavailable Costa Nieto J Unavailable Unavailable Chrsit Gardiner Unavailable Unavailable Christ Gardiner Unavailable Unavailable Unavailable Christ Gardiner DO Primary Care Provider Jeff CHILD DAY CARE TEACHER-CONTROL CABINET ASSEMBLER, Apple Unavailable [phone] CHRIST GARDINER Primary Care Unavailroro e Jeff, MsLeigh Chiu Attending Unavailable Rashad Agsoto, Dr. Christ Barron Primary Care [facility] Rashad Agosto, Dr. Christ Barron Attending [facility] Rashad Agosto, Dr. Christ Barron Primary Care [facility] JEFF, GILBERT CHIU Attending Unavailable Rashad Agosto, Dr. Christ Barron Primary Care [facility] Rashad Agosto, Dr. Christ Barron Primary Care [facility] Rashad Agosto, Dr. Christ Barron Attending [facility] Rashad Agosto, Dr. Christ Barron Primary Care [facility] Rashad Agosto, Dr. Christ Barron Attending [facility] Rashad Agosto, Dr. Christ Barron Attending [facility] Rashad Agosto, Dr. Christ Barron Referring [facility] Rashad Agosto, Dr. Christ Barron Primary Care [facility] JEFF, GILBERT CHIU Attending Unavailable Rashad Agosto, Dr. Christ Barron Primary Care U [facility] Van Nostran, Dr. Christ Barron Primary Care U [facility] JEFF, CONTROL CABINET ASSEMBLER APPLE Attending Unavailable Van Nostran DO, Christ E Unavailable VAN NOSTRAN, CHRIST E Attending Unavailabl [...] Unavailable Van Nostran, Saida Primary Care Provider [phone] Dr. Amalia Donahue Emergency Provider Terrence Addisno, Dr. Humphrey Primary Care Provider Dr. Hayden Diaz Admit Provider Dr. Hayden Diaz Other Provider Dr. Neymar Cunningham Other Provider [phone] Ajay Nieves Attending Provider Dr. Juanita Jiang Attending Provider Dr. Neymar Cunningham Attending Provider Dr. Mu Grossman Other Provider Dr. Ajay Nieves Other Provider Dr. Dayron Workman Other Provider Unavailable Dr. Lucio Brown Other Provider Dr. Alen Burgess Other Provider Unavailab nacho Perez STONE PLANER, STONE PLANER-C Melania Other Provider Dr. Neymar Cunningham Referring Provider Dr. Juanita Jiang Referring Provider Dr. Amalia Donahue Emergency Provider Terrence Addison, Dr. Humphrey Primary Care Provider [phone] Dr. Hayden Diaz Admit Provider [phone] Dr. Hayden Diaz Other Provider [phone] Dr. Neymar Cunningham Referring Provider Octavio, Dr. Blackmon Other Provider Dr. Ajay Nieves Attending Provider Dr. Juanita Jiang Attending Provider Dr. Juanita Jiang Referring Provider Dr. Neymar Cunningham Attending Provider Dr. Mu Grossman Other Provider Dr. Ajay Nieves Other Provider Dr. Dayron Workman Other Provider Unavailable Dr. Lucio Brown Other Provider Dr. Alen Burgess Other Provider Unavailab Daniels STONE PLANER, STONE PLANER-C Melania Other Provider Deperro Sr. LAU, Dr. Humphrey Primary Care Provider Terrence HUGHES, Kam Attending Provider Unavailable Deperro Sr., Kam Primary Care Unavailable Deperro OLS, Kam Attending Unavailable Deperro OLS, Kam Attending Unavailable Deperro Sr., Kam Primary Care Unavailable Deperro Sr., Kam Primary Care Unavailable Deperro OLS, Kam Attending Unavailable Deperro OLS, Kam Referring Unavailable Deperro OLS, Kam Primary Care Unavailable Deperro OLS, Kam Attending Unavailable Deperro Sr., Kam Primary Care Unavailable Deperro OLS, Kam Attending Unavailable Deperro Sr., Kam Primary Care Unavailable Deperro OLS, Kam Attending Unavailable Deperro OLS, Kam Attending Unavailable Deperro Sr., Kam Primary Care Unavailable Deperro OLS, Kam Attending Unavailable Deperro Sr., Kam Primary Care Unavailable Deperro OLS, Kam Attending Unavailable Deperro Sr., Kam Primary Care Unavailable Nita LAU, Dr. Centeno Emergency Provider Deperro Sr. DO, Dr. Humphrey Primary Care Provider Joe LAU, Dr. Blake Admit Provider [phone] Joe LAU, Dr. Blake Attending Provider Arnoldo LAU, Dr. Law Attending Provider Joe LAU, Dr. Blake Other Provider Arnoldo LAU, Dr. Law Other Provider Octavio HUGHES, Dr. Blackmon Attending Provider Nilo HUGHES, Dr. Alfonso Attending Provider Octavio HUGHES, Dr. Blackmon Other Provider [phone] Thanh Mclaughlin Attending Unavailable Thanh Mclaughlin Consulting Unavailable Hayden Diaz Admitting Unavailable Deperro Sr., Kam Primary Care Unavailable Hayden Diaz Consulting Unavailable Neymar Cunningham Consulting Unavailable Kaden Corcoran Attending Unavailable Deperro Sr., Kam Primary Care Unavailable Neymar Cunningham Attending Unavailable Deperro Sr., Kam Primary Care Unavailable Thanh Mclaughlin Attending Unavailable Hayden Diaz Attending Unavailable Thanh Mclaughlin Consulting Unavailable Hayden Diaz Admitting Unavailable Deperro Sr., Kam Primary Care Unavailable Neymar Cunningham Attending Unavailable Hayden Diaz Consulting Unavailable Allergies Allergy Classification Reported Allergen(s) Allergy Type Date of Onset Reaction(s) Facility Aspirin (4 sources) Aspirin; Translations: [Aspirin TABS] Drug Allergy [facility] Work Phone: Benzodiazepines (8 sources) LORazepam; Translations: [Ativan TABS] Drug Allergy [facility] Work Phone: Cephalosporins (antibiotic) (4 sources) Cephalexin; Translations: [Keflex TABS] Drug Allergy [facility] Work Phone: Eszopiclone (4 sources) Eszopiclone; Translations: [Lunesta] Drug Allergy [facility] Work Phone: Fish (4 sources) fish, unspecified Food Allergy [facility] Work Phone: Lincomycin (4 sources) Lincomycin; Translations: [Lincocin SOLN] Drug Allergy [facility] Work Phone: Lincosamides (antibiotic) (4 sources) Clindamycin; Translations: [Clindamycin] Drug Allergy [facility] Work Phone: Macrolides (antibiotic) (4 sources) Clarithromycin; Translations: [Biaxin TABS] Drug Allergy [facility] Work Phone: Mold Extract (4 sources) Mold Extract Drug Allergy [facility] Work Phone: NSAIDs (4 sources) NSAIDs; Translations: [NSAIDs] Drug Allergy [facility] Work Phone: Penicillins (antibiotic) (4 sources) Penicillins; Translations: [Penicillins] Drug Allergy [facility] Work Phone: Pollen (4 sources) bee pollen Substance Allergy [facility] Work Phone: rofecoxib (4 sources) rofecoxib; Translations: [Vioxx TABS] Drug Allergy [facility] Work Phone: Serotonin Reuptake Inhibitors (SSRIs) (4 sources) traZODone; Translations: [trazodone] Drug Allergy [facility] Work Phone: Tetracyclines (antibiotic) (4 sources) Tetracyclines; Translations: [Tetracyclines] Drug Allergy [facility] Work Phone: (20 sources) Aspirin; Translations: [Aspirin TABS] Drug Allergy 03-02-19 23 Unknown [facility] (20 sources) bee pollen allergy to substance [facility] Work Phone: (20 sources) Cephalexin; Translations: [Keflex TABS] Drug Allergy 02-16-19 10 Unknown, Hives [facility] Work Phone: (20 sources) Clarithromycin; Translations: [Biaxin TABS] Drug Allergy 03-02-19 23 Unknown [facility] Work Phone: (20 sources) Clindamycin; Translations: [Clindamycin] Drug Allergy 10-14-19 21 Unknown [facility] Work Phone: (20 sources) fish, unspecified allergy to substance [facility] Work Phone: (20 sources) Lincomycin; Translations: [Lincocin SOLN] Drug Allergy 05-26-19 10 Unknown, Nausea And Vomiting, Rash [facility] Work Phone: (20 sources) LORazepam; Translations: [Ativan TABS] Drug Allergy 03-02-19 23 Unknown [facility] Work Phone: (20 sources) NSAIDs; Translations: [NSAIDs] drug allergy [facility] Work Phone: (20 sources) Penicillins; Translations: [Penicillins] drug allergy 03-02-19 [facility] (20 sources) rofecoxib; Translations: [Vioxx TABS] Drug Allergy 03-02-19 23 Unknown [facility] Work Phone: (20 sources) Tetracyclines; Translations: [Tetracyclines] drug allergy 03-02-19 [facility] (1 source) drug allergy [facility] Work Phone: (1 source) drug allergy [facility] Work Phone: (20 sources) Erythromycin Derivatives; Translations: [Erythromycin Derivatives] drug allergy [facility] Work Phone: (1 source) allergy to substance [facility] Work Phone: (1 source) allergy to substance [facility] Work Phone: (1 source) drug allergy [facility] Work Phone: (1 source) drug allergy [facility] Work Phone: (1 source) drug allergy [facility] Work Phone: (1 source) allergy to substance [facility] Work Phone: (1 source) allergy to substance [facility] Work Phone: (1 source) drug allergy [facility] Work Phone: (20 sources) Eszopiclone; Translations: [Lunesta] Drug Allergy [facility] Work Phone: [phone] (20 sources) Mold Extract; Translations: [MOLD] Drug Allergy 03-02-19 Unknown [facility] Work Phone: (20 sources) Temazepam; Translations: [Restoril] Drug Allergy [facility] Work Phone: [phone] (20 sources) traZODone; Translations: [trazodone] Drug Allergy 03-02-19 Unknown [facility] Work Phone: [phone] (20 sources) Other; Translations: [OTHER] allergy to substance 03-02-19 Unknown [facility] Work Phone: [phone] (20 sources) Doxazosin; Translations: [Cardura] Drug Allergy 03-02-19 Unknown [facility] Work Phone: [phone] (7 sources) Bee pollen; Translations: [BEE POLLEN] Drug Allergy 03-02-19 Unknown [facility] Work Phone: (20 sources) Erythromycin; Translations: [ERYTHROMYCIN BASE] Drug Allergy 03-02-19 Unknown [facility] Work Phone: (19 sources) Eszopiclone; Translations: [ESZOPICLONE] Drug Allergy 03-02-19 Unknown [facility] Work Phone: (7 sources) Non-steroidal anti-inflammatory agent; Translations: [NSAIDS (NON-STEROIDAL ANTI-INFLAMMATORY DRUG)] Drug Allergy 03-02-19 Unknown [facility] Work Phone: (5 sources) Penicillins Drug Allergy 03-02-19 Unknown [facility] Work Phone: (6 sources) Salicylic Acid; Translations: [SALICYLATES] Drug Allergy 02-16-19 GI bleeding [facility] Work Phone: (19 sources) Temazepam; Translations: [TEMAZEPAM] Drug Allergy 03-02-19 Unknown [facility] Work Phone: (5 sources) Tetracycline (class of antibiotic) Drug Allergy 03-02-19 [facility] Work Phone: (2 sources) Aspirin; Translations: [ASPIRIN] Drug Allergy 03-02-19 [facility] (4 sources) Cephalexin; Translations: [CEPHALEXIN] Drug Allergy 03-02-19 [facility] (5 sources) Clarithromycin; Translations: [CLARITHROMYCIN] Drug Allergy 10-14-19 [facility] (4 sources) Doxazosin; Translations: [DOXAZOSIN] Drug Allergy 03-02-19 Unknown [facility] (4 sources) Lincomycin; Translations: [LINCOMYCIN] Drug Allergy 03-02-19 [facility] (5 sources) LORazepam; Translations: [LORAZEPAM] Drug Allergy 10-14-19 [facility] (5 sources) rofecoxib; Translations: [ROFECOXIB] Drug Allergy 02-16-19 Unknown [facility] (4 sources) Fish; Translations: [FISH CONTAINING PRODUCTS] Drug Intolerance 10-14-19 Anaphylaxis [facility] (1 source) Eszopiclone Drug Allergy 10-14-19 Unknown [facility] (1 source) Fish - dietary Propensity to adverse reactions 10-14-19 Anaphylaxis [facility] (1 source) Non-steroidal anti-inflammatory agent Drug Allergy 10-14-19 [facility] (1 source) Penicillins Drug Allergy 02-16-19 [facility] (1 source) Salicylic Acid Drug Allergy 02-16-19 10 GI bleeding, Unknown [facility] (1 source) Temazepam Allergy to substance 03-02-19 [facility] (1 source) Tetracycline (class of antibiotic) Drug Allergy 02-16-19 10 [facility] (14 sources) Fish derivative; Translations: [fish derived] Allergy to substance 10-31-19 NEEDS FOLLOW-UP, PT UNSURE OF REACTION [facility] (12 sources) Nonsteroidal Anti-inflammatory Compounds Allergy to substance 10-31-19 NEEDS FOLLOW-UP, PT UNSURE OF REACTION [facility] (12 sources) Penicillins Allergy to substance 10-31-19 NEEDS FOLLOW-UP, PT UNSURE OF REACTION [facility] (12 sources) Salicylic Acid Drug Allergy 10-31-19 NEEDS FOLLOW-UP, PT UNSURE OF REACTION [facility] (12 sources) Tetracyclines Allergy to substance 10-31-19 NEEDS FOLLOW-UP, PT UNSURE OF REACTION [facility] (12 sources) Fish Containing Products Allergy to substance 10-31-19 NEEDS FOLLOW-UP, PT UNSURE OF REACTION [facility] (2 sources) Clindamycin Drug Allergy 11-07-19 [facility] (2 sources) Erythromycin Drug Allergy 11-07-19 [facility] (2 sources) Eszopiclone Drug Allergy 11-07-19 [facility] (2 sources) NSAIDs Drug allergy (disorder) 11-07-19 [facility] (2 sources) Penicillins Drug allergy (disorder) 11-07-19 [facility] (2 sources) Salicylic Acid Drug Allergy 11-07-19 [facility] (2 sources) Temazepam Drug Allergy 11-07-19 [facility] (2 sources) Tetracyclines Drug allergy (disorder) 11-07-19 [facility] (2 sources) Fish Containing Products Drug allergy (disorder) 11-07-19 [facility] (2 sources) cultivated mushroom extract Drug Allergy 07-26-19 PT UNSURE OF REACTION [facility] (1 source) Mushroom (edible) Drug allergy (disorder) 07-26-19 [facility] Medications Current Medications Medication Drug Class(es) Dates Sig (Normalized) Sig (Original) acetaminophen 500 mg oral tablet (20 sources) Start: 07-28-2024 take 1 g by mouth every hour as needed for pain, then take 8 tablets by mouth every hour as needed for pain, then take 1 g by mouth once as needed for pain, then take 8 tablets by mouth every hour as needed for pain Acetaminophen 500 mg Tablet Active 1000 mg PO EVERY 8 HOURS 0 July 28, 2024 12:00am 1 g every 8 hourly for 1 week and then 1 g every 8 hourly as needed for severe pain Start: 07-25-2024 End: 07-28-2024 take 1 tablet by mouth twice daily Acetaminophen 500 mg tablet Discontinued 500 mg PO TWICE A DAY July 25, 2024 12:00am July 28, 2024 11:17am Start: 10-30-2022 Acetaminophen (Tylenol) 325 mg capsule Active 500 mg PO TWICE A DAY October 30, 2022 12:00am Start: 10-10-2022 End: 10-16-2022 take 1 [...] / ipratropium bromide 0.167 mg/ml inhalation solution (3 sources) Anticholinergic, beta2-Adrenergic Agonist Start: 07-25-2024 Ipratropium-Albuterol 0.5 mg-3 mg(2.5 mg base)/3 mL solution for nebulization Active mL July 25, 2024 12:00am Start: 10-10-2022 End: 10-16-2022 ipratropium-albuterol (Duo-N eb) 0.5-2.5 mg/3 mL nebulizer solution 3 mL apixaban 5 mg oral tablet (1 source) Factor Xa Inhibitor Start: 07-28-2024 take 2.5 mg by mouth twice daily Apixaban (Eliquis) 5 mg Tablet Active 2.5 mg PO TWICE A DAY 0 July 28, 2024 12:00am For total 30 days ascorbic acid 500 mg oral tablet (1 source) Vitamin C Start: 07-28-2024 take 1 tablet by mouth twice daily Ascorbic Acid (Vitamin C) 500 mg tablet Active 500 mg PO TWICE A DAY 60 July 28, 2024 12:00am atorvastatin 40 mg oral tablet (20 sources) HMG-CoA Reductase Inhibitor Start: 07-25-2024 take 1 tablet by mouth once daily Atorvastatin 40 mg tablet Active 40 mg PO DAILY July 25, 2024 12:00am Start: 11-02-2022 take 1 tablet by dunia th at bedtime Atorvastatin 40 mg Tablet Active 40 mg PO AT BEDTIME November 02, 2022 12:00am Start: 10-05-2017 End: 11-02-2022 take 1 tablet by mouth at bedtime Atorvastatin 10 mg tablet Discontinued 10 mg PO AT BEDTIME October 30, 2022 12:00am November 02, 2022 12:09pm azelastine hydrochloride 0.137 mg/actuat metered dose nasal spray (17 sources) Histamine-1 Receptor Antagonist Start: 07-25-2024 Azelastine 137 mcg ( 0.1 %) spray,non-aerosol Active INTRANASAL July 25, 2024 12:00am Start: 10-30-2022 Azelastine 137 mcg (0.1 %) aerosol,spray Active 1 NMA INTRANASAL TWICE A DAY October 30, 2022 12:00am administer into each nostril Start: 10-30-2022 take 1 spray(s) nasa l route twice daily Azelastine Active 1 SPRAY INTRANASAL TWICE A DAY October 30, 2022 12:00am administer into each nostril Start: 10-27-2022 Azelastine HCl - 0.1 % [...] 0 Active budesonide 0.25 mg/ml inhalation suspension (2 sources) Corticosteroid Start: 07-25-2024 Budesonide 0.5 mg/2 mL suspension for nebulization Active mg July 25, 2024 12:00am 24 hr buPROPion hydrochloride 150 mg extended release oral tablet (20 sources) Aminoketone Start: 07-25-2024 take 1 tablet by mouth once daily Bupropion Hcl 150 mg tablet extended release 24 hr Active 150 mg PO DAILY July 25, 2024 12:00am Start: 10-30-2022 take 1 tablet by dunia once daily Bupropion Hcl 150 mg tablet extended release 24 hr Active 150 mg PO DAILY October 30, 2022 12:00am Start: 02-16-2017 End: 10-16-2022 take 150 mg by mouth once daily Bupropion Hcl Active 1 50 MG PO DAILY October 30, 2022 12:00am calcium carbonate 500 mg chewable tablet (20 sources) Start: 07-28-2024 take 1 tablet by mouth three times daily at mealtime Calcium Carbonate 200 mg calcium (500 mg) Tablet,Chewable Active 500 mg PO 3 TIMES DAILY WITH MEALS 0 July 28, 2024 12:00am Start: 07-25-2024 End: 07-28-2024 Calcium Carbonate 500 mg ramiro cium (1,250 mg) tablet,chewable Discontinued PO July 25, 2024 12:00am July 28, 2024 11:19am Start: 10-27-2022 take 1 tablet by dunia once daily Calcium Carbonate (Calcium 500) 500 mg calcium (1,250 mg) tablet,chewable Active 500 mg PO DAILY October 30, 2022 12:00am calcium carbonat e (Os-Ramiro) 1250 (500 Ca) [...] PO DAILY July 25, 2024 12:00am Start: 10-30-2022 take 1 capsule by mo [facility] once daily Cetirizine (All Day Allergy (Cetirizine)) 10 mg capsule Active 10 mg PO DAILY October 30, 2022 12:00am Start: 10-11-2022 End: 10-16-2022 take 10 mg by mouth once daily 10 mg, Oral, Daily, Fir st dose on 10/11/22 at 0915 cetirizine HCl ( ZYRTEC ORAL) Take by mouth. 0 Active Zyrtec TABS Tino tity: 0 Refills: 0 Ordered: 08-Mar-2021 DO Active cholecalciferol 0.125 mg oral capsule (1 source) Vitamin D Start: 07-28-2024 take 1 capsule by mouth once daily Cholecalciferol (Vitamin D3) 125 mcg (5,000 unit) capsule Active 125 ug PO DAILY 0 July 28, 2024 12:00am clopidogrel 75 mg oral tablet (20 sources) [id number] Platelet Inhibitor Start: 07-25-2024 take 1 tablet by mouth once daily Clopidogrel 75 mg tablet Active 75 mg PO DAILY July 25, 2024 12:00am On Hold: Hold while taking Eliquis for 1 month. Start: 10-30-2022 Clopidogrel 75 mg tablet Active 75 mg PO .thuOctober 30, 2022 12:00am Start: 09-01-2012 End: 10-16-2022 Clopidogrel Active 75 MG PO .thuOctober 30, 2022 12:00am Start: 09-01-2012 take 1 tablet by dunia th three times weekly, then take 1 tablet by mouth once clopidogrel (Plavix) 75 mg tablet Take 1 tablet (75 mg) by mouth 3 times a week. TAKE 1 TABLET BY MOUTH EVERY [id number] 0 09/01/2012 Active Start: 09-01-2012 take 1 [...] A DAY July 25, 2024 12:00am Start: 10-30-2022 take 1 capsule by mo ut every six hours Dicyclomine 10 mg capsule Active 10 mg PO EVERY 6 HOURS October 30, 2022 12:00am Start: 07-30-2020 End: 10-16-2022 dicyclomine (Bentyl) capsule 10 mg Start: 11-14-2019 take 1 capsule by mo ut every eight hours Dicyclomine HCl - 10 MG Oral Capsule TAKE 1 CAPSULE Every 8 hours PRN diarrhea, stomach cramps Quantity: 90 Refills: 3 Christ Gardiner DO Start : 14-Nov-2019 Active take 1 capsule by mo [facility] four times daily Dicyclomine HCl - 10 MG Oral Capsule TAKE 1 CAPSULE 4 TIMES DAILY Quantity: 90 Refills: 3 Ordered: 18-Oct-2021 Christ Gardiner DO Active docusate sodium 50 mg / sennosides, retirement 8.6 mg oral tablet (6 sources) Start: 07-28-2024 Sennosides-Doc usate Sodium (Stimulant Laxative Plus) 8.6-50 mg Tablet Active 2 {tbl} PO TWICE A DAY 0 July 28, 2024 12:00am Start: 07-25-2024 End: 07-28-2024 Sennosides-Docusate Sodium ( Senexon-S) 8.6-50 mg tablet Discontinued 1 {tbl} PO DAILY July 25, 2024 12:00am July 28, 2024 11:23am Start: 10-27-2022 Senna S 8.6-50 MG Oral [...] PO DAILY July 25, 2024 12:00am Start: 10-30-2022 take 1 tablet by dunia th once daily Doxazosin (Cardura) 2 mg tablet Active 2 mg PO DAILY October 30, 2022 12:00am Start: 10-11-2022 End: 10-16-2022 take 2 [...] 2 mg by mouth Nightly. 0 Active ferrous sulfate 325 mg oral tablet (20 sources) Start: 07-28-2024 take 1 tablet by mouth once daily Ferrous Sulfate (Ferosul) 325 mg (65 mg iron) tablet Active 325 mg PO DAILY July 28, 2024 12:00am Start: 05-30-2016 End: 10-07-2022 take 1 tablet by mouth once daily Ferrous Sulfate 325 (65 Fe) MG Oral Tablet Take 1 tablet once daily Refills: 0 DO Start : 30-May-2016 Active Start: 05-30-2016 take 1 tablet by dunia th three times daily at mealtime Ferrous Sulfate 325 (65 Fe) MG Oral Tablet TAKE 1 TABLET 3 TIMES DAILY WITH FOOD. Refills: 0 Start : 30-May-2016 Active fluticasone propionate 0.05 mg/actuat metered dose nasal spray (20 sources) Corticosteroid Start: 10-30-2022 take 50 ug nasal route once daily Fluticasone Propionate (24 Hour Allergy Relief) 50 mcg/actuation spray,suspension Active 1 NMA INTRANASAL DAILY October 30, 2022 12:00am administer into each nostril Start: 10-30-2022 take 1 spray(s) nasa l route once daily Fluticasone Propionate (24 Hour Allergy Relief) 50 mcg/actuation spray,suspension Active 1 SPRAY INTRANASAL DAILY October 30, 2022 12:00am administer into each nostril Start: 12-17-2010 End: 10-27-2022 Fluticasone Propionate 50 MC G/ACT Nasal Suspension USE DIRECTED. Quantity: 1 Refills: 3 Ordered: 20-Nov-2017 Rashad Agosto Christ LAU Start : 17-Dec-2010 End : 27-Oct-2022 Complete Start: 12-17-2010 fluticasone (F lonase) 50 mcg/actuation nasal spray Administer into affected nostril(s). 0 12/17/2010 Active Start: 12-17-2010 Fluticasone Pr opionate 50 MCG/ACT Nasal Suspension USE DIRECTED. Quantity: 1 Refills: 3 Rashad Agosto DO Christ Start : 17-Dec-2010 Active 15.8 ML Bottle Food Supplemt, Lactose-Reduced (Ensure) liquid (10 sources) Start: 10-30-2022 take 1 mL by mouth once daily Food Supplemt, Lactose-Reduced (Ensure) liquid Active 8 mL PO DAILY October 30, 2022 12:00am Start: 10-30-2022 take 1 mL by mouth once daily Food Supplemt, Lactose-Reduced (Ensure) liquid Active 8 ML PO DAILY October 29, 2022 11:00pm Start: 10-30-2022 take 1 mL by mouth once daily Food Supplemt, Lactose-Reduced (Ensure) liquid Active 8 ML PO DAILY October 30, 2022 12:00am furosemide 40 mg oral tablet (20 sources) Loop Diuretic Start: 07-28-2024 Furosemide 40 mg Tablet Active 40 mg PO DAILY 0 July 28, 2024 12:00am 40 mg daily for 5 days and then 20 mg daily Start: 07-25-2024 End: 07-28-2024 take 1 tablet by mouth once daily Furosemide 20 mg tablet Discontinued 20 mg PO DAILY July 25, 2024 12:00am July 28, 2024 11:22am Start: 01-12-2017 take 1 tablet by dunia th once daily Furosemide (Lasix) 20 mg tablet Active 20 mg PO DAILY October 30, 2022 12:00am Start: 01-12-2017 take 2 tablets by mo [...] Active PO July 25, 2024 12:00am Start: 10-30-2022 take 1 tablet by dunia twice daily Gabapentin 600 mg tablet Active 600 mg PO TWICE A DAY October 30, 2022 12:00am Start: 10-11-2022 End: 10-16-2022 take 600 [...] IN THE EVENING Quantity: 360 Refills: 0 Rashad MaralChrist camejo DO Start : 29-Sep-2017 Active guaiFENesin 20 mg/ml oral solution (10 sources) Start: 10-30-2022 take 200 mg by mouth every eight hours Guaifenesin (Chest Congestion Relief) 100 mg/5 mL liquid Active 200 mg PO EVERY 8 HOURS October 30, 2022 12:00am Inulin (10 sources) Start: 10-30-2022 take 1 tablet by mouth once daily Inulin (Fiber Gummies) 2 gram tablet,chewable Active 1 g PO DAILY October 30, 2022 12:00am Start: 10-30-2022 take 1 tablet by dunia th once daily Inulin (Fiber Gummies) 2 gram tablet,chewable Active 1 GM PO DAILY October 29, 2022 11:00pm Start: 10-30-2022 take 1 tablet by dunia th once daily Inulin (Fiber Gummies) 2 gram tablet,chewable Active 1 GM PO DAILY October 30, 2022 12:00am 24 hr isosorbide mononitrate 30 mg extended release oral tablet (20 sources) Nitrate Vasodilator Start: 07-25-2024 take 1 tablet by mouth once daily, then take 1 tablet by mouth every twenty-four hours Isosorbide Mononitrate 30 mg tablet extended release 24 hr Active 30 mg PO DAILY July 25, 2024 12:00am Start: 09-01-2012 take 1 tablet by dunia th once daily, then take 1 tablet by mouth every twenty-four hours Isosorbide Mononitrate 30 mg tablet extended release 24 hr Active 30 mg PO DAILY October 30, 2022 12:00am Start: 09-01-2012 End: 10-16-2022 take 1 tablet by mouth once daily 60 mg, Oral, Daily, First dose on 10/11/22 at 0915 Do not chew or crush ER tablets; may be divided in half. Due to insoluble matrix embedding, ER tablets that are scored may be split. Lactobac No.30-Bifidobact No .4 (Ultimate Harrison Probiotic) 30 billion cell capsule,delayed release(DR/EC) (10 sources) Start: 10-30-2022 Lactobac No.30 -Bifidobact No.4 (Ultimate Harrison Probiotic) 30 billion cell capsule,delayed release(DR/EC) Active 1 NMA PO DAILY October 30, 2022 12:00am Start: 10-30-2022 Lactobac No.30 -Bifidobact No.4 (Ultimate Harrison Probiotic) 30 billion cell capsule,delayed release(DR/EC) Active 1 CAP PO DAILY October 29, 2022 11:00pm Start: 10-30-2022 Lactobac No.30 -Bifidobact No.4 (Ultimate Harrison Probiotic) 30 billion cell capsule,delayed release(DR/EC) Active 1 CAP PO DAILY October 30, 2022 12:00am metoprolol tartrate 25 mg oral tablet (20 sources) beta-Adrenergic Simon Start: 07-25-2024 take 1 tablet by mouth twice daily Metoprolol Tartrate 25 mg tablet Active 25 mg PO TWICE A DAY July 25, 2024 12:00am Start: 10-30-2022 take 1 tablet by dunia th twice daily Metoprolol Tartrate 25 mg tablet Active 25 mg PO TWICE A DAY October 30, 2022 12:00am Start: 09-06-2013 take 1 tablet by [...] by dunia th at bedtime Mirtazapine 30 mg tablet Active 30 mg PO AT BEDTIME October 30, 2022 12:00am Start: 11-22-2020 take 1 tablet by dunia [...] PO DAILY July 25, 2024 12:00am Start: 10-30-2022 take 1 tablet by dunia th at bedtime Montelukast 10 mg tablet Active 10 mg PO AT BEDTIME October 30, 2022 12:00am Start: 05-26-2018 End: 10-16-2022 take 10 mg by mouth at bedtime Montelukast Active 10 M G PO AT BEDTIME October 30, 2022 12:00am Multivitamin (Daily Multi-Vitamin) tablet (10 sources) Start: 10-30-2022 Multivitamin ( Daily Multi-Vitamin) tablet Active 1 {tbl} PO DAILY October 30, 2022 12:00am Start: 10-30-2022 take 1 tablet by dunia th once daily Multivitamin (Daily Multi-Vitamin) tablet Active 1 TABLET PO DAILY October 29, 2022 11:00pm Start: 10-30-2022 take 1 tablet by dunia th once daily Multivitamin (Daily Multi-Vitamin) tablet Active 1 TABLET PO DAILY October 30, 2022 12:00am multivitamin (Theragran) tablet (1 source) take 1 tablet by mouth once daily multivitamin (Theragran) tablet Take 1 tablet by mouth daily. 0 Active multivitamin tablet (5 sources) multivitamin tab let Take by mouth. 0 Active Multivitamin With Folic Acid (Daily-Carmelo (With Folic Acid)) 400 mcg tablet (2 sources) Start: Multivitamin With Folic Acid (Daily-Carmelo (With Folic Acid)) 400 mcg tablet Active 1 {tbl} PO DAILY July 25, 2024 12:00am pantoprazole 40 mg delayed release oral tablet (20 sources) Proton Pump Inhibitor Start: take 1 tablet by mouth once daily Pantoprazole 40 mg tablet,delayed release (DR/EC) Active 40 mg PO DAILY July 25, 2024 12:00am Start: 10-30-2022 take 1 tablet by dunia th once daily Pantoprazole 40 mg tablet,delayed release (DR/EC) Active 40 mg PO DAILY October 30, 2022 12:00am take 1 tablet by dunia th twice daily Pantoprazole Sodium 40 MG Oral Tablet Delayed Release Take 1 tablet twice daily Quantity: 180 Refills: 3 Ordered: 11-Mar-2022 Christ Gardiner DO Active take 1 tablet by dunia th once daily before breakfast pantoprazole (ProtoNix) 40 MG EC tablet Take 40 mg by mouth every morning (before breakfast). Do not crush, chew, or split. 0 Active polyethylene glycol 3350 45083 mg powder for oral solution (5 sources) Osmotic Laxative Start: 07-28-2024 Polyethylene Glycol 3350 (Miralax) 17 gram/dose powder Active 17 g PO TWICE A DAY 1020 30 July 28, 2024 12:00am Twice daily for 3 days and then once daily Start: 10-12-2022 End: 11-15-2022 Polyethylene Glycol 3350 Pow lizeth Quantity: 0 Refills: 0 Ordered: 27-Oct-2022 DO Start : 27-Oct-2022 Active microencapsulated potassium chloride 20 meq extended release oral tablet (20 sources) Start: 07-25-2024 take 1 tablet by mouth once daily Potassium Chloride 20 mEq tablet,ER particles/crystals Active 20 meq PO DAILY July 25, 2024 12:00am Start: 10-30-2022 take 1 tablet by mouth once da [facility] Potassium Chloride (K-Tab) 20 mEq tablet extended release Active 20 meq PO DAILY October 30, 2022 12:00am Start: 10-11-2022 End: 10-16-2022 20 mEq, Oral, Daily, First d ose on 10/11/22 at 0915 Best given with food and plenty of water to minimize gastric irritation. Do not crush or chew. Start: 10-07-2017 take 2 capsules by m out once daily Potassium Chloride ER 10 MEQ Oral Capsule Extended Release TAKE 2 CAPSULES BY MOUTH DAILY Quantity: 180 Refills: 1 Ordered: 11-Sep-2022 Apple Zayas Start : 07-Oct-2017 Active Start: 10-07-2017 take 1 capsule by mo [facility] once daily Potassium Chloride ER 10 MEQ [...] (20 sources) take 1 capsule by mo uth at bedtime docusate sodium (COLACE ORAL) Take [...] Christ Gardiner DO Start : 15-Mar-2018 Active Fiber Select Gummies Oral Tablet Chewable (2 sources) Start: 10-27-2022 Fiber Select Gummies Oral Tablet Chewable Quantity: 0 Refills: 0 Ordered: 27-Oct-2022 DO Start : 27-Oct-2022 Active 1 ml HYDROmorphone hydrochloride 1 mg/ml cartridge [...] procedure Quantity: 2 Refills: 0 Ordered: 11-Sep-2022 Kirit LEDBETTER-Apple HUNT Start : 11-Sep-2022 Active Start: 06-01-2022 End: [...] USE TOPICALLY DIRECTED. Quantity: 1 Refills: 11 Christ Gardiner DO Start : 30-Nov-2017 Active 30 GM Tube Start: 10-05-2017 Lidocaine 5 % External Patch APPLY 1 PATCH TO THE AFFECTED AREA AND LEAVE IN PLACE FOR 12 HOURS, THEN REMOVE AND LEAVE OFF FOR 12 HOURS. Quantity: 30 Refills: 11 Ordered: 20-Nov-2017 Christ Gardiner DO Start : 05-Oct-2017 Active lisinopril 10 mg oral tablet (20 sources) Angiotensin Converting Enzyme Inhibitor Start: 09-01-2012 take 1 tablet by mouth once daily Lisinopril 10 MG Oral Tablet TAKE 1 TABLET BY MOUTH EVERY DAY Quantity: 90 Refills: 1 Christ Gardiner DO Start : 01-Sep-2012 Active magnesium hydroxide 80 [...] hours PRN, severe pain (7-10), Starting on Thu10/10/22 at 2105 If oral and IV narcotics [...] sources) Nitrate Vasodilator Start: 12-01-19 End: 05-31-19 Nitroglycerin 0.4 MG Sublingual Tablet Sublingual DISSOLVE 1TAB IN MOUTH AT 1ST OF ATTACK MAY REPEAT EVERY 5MIN UNTIL RELIEF AFTER 3TABS CALL MED HELP Quantity: 1 Refills: 3 Ordered: 29-Feb-2020 Christ Gardiner DO Start : 30-Nov-2018 Active omeprazole 20 mg delayed release oral capsule (20 sources) Proton Pump Inhibitor Start: 10-23-19 take 1 capsule by mouth twice daily Omeprazole 20 MG Oral Capsule Delayed Release TAKE 1 CAPSULE TWICE DAILY. Quantity: 180 Refills: 1 Ordered: 22-May-2020 Christ Gardiner DO Start : 22-Oct-2017 Active Start: 10-22-2017 take 1 capsule by [facility] once daily Omeprazole 20 MG Oral Capsule [...] THREE TIMES DAILY Quantity: 270 Refills: 1 Rashad Agosto Arslanon Start : 12-Jan-2017 Active polyethylene glycol 400 4 mg/ml / [...] TABLET TWICE DAILY. Quantity: 14 Refills: 0 Rashad Christ Agosto DO Start : 10-Dec-2018 Active therapeutic multivitamin-minerals [...] Onset: 8 Resolved: 3 06-10-2022 Episodic Acute cerebrovascular disease (17 sources) Cerebrovascular accident; Translations: [Cerebral infarction, unspecified] 10-30-2022 Chronic Acute myocardial infarction (20 sources) Subendocardial infarction, initial episode of care; Translations: [Acute Non-Q-wave Myocardial Infarction - Initial Care ([place])] Chronic Comment on above: Added by Problem [...] Onset: 3 03-02-2022 Chronic Chronic kidney disease (3 sources) Chronic kidney disease; Translations: [Chronic kidney disease, stage 3a ([facility])] Onset: 3 Complications of surgical procedures or medical care (20 sources) Iatrogenic pneumothorax; Translations: [Mechanical complication of gastrostomy] Episodic Comment on above: Added by Problem Clarice Hendricks; 2012-08-06; Conduction disorders (1 source) Unspecified right bundle-branch block; Translations: [Unspecified right bundle-branch block] Onset: 8 Chronic Congestive heart failure; nonhypertensive (20 sources) Heart failure, unspecified; Translations: [Chronic diastolic (congestive) heart failure] Onset: 8 Resolved: 3 05-30-2022 Chronic Congestive heart failure; nonhypertensive (1 source) Congestive heart failure; nonhypertensive Onset: 8 Coronary atherosclerosis and other heart disease (20 sources) Atherosclerotic heart disease of [place] coronary artery without angina pectoris; Translations: [Old [...] bleed] Onset: 8 Chronic E Codes: Fall (4 sources) Fall; Translations: [Unspecified fall, initial encounter] [...] Episodic Fracture of neck of femur (hip) (6 sources) Closed intertrochanteric fracture; Translations: [Displaced intertrochanteric fracture of right femur, initial encounter for closed fracture] Onset: 5 07-25-2024 Episodic Genitourinary symptoms and ill-defined conditions (20 sources) Urgent desire to urinate; Translations: [Increased frequency of urination] Episodic Gout and other crystal arthropathies (2 sources) Gout; Translations: [Gout, unspecified] Onset: 1 11-21-2021 Chronic Heart valve disorders (20 sources) Nonrheumatic mitral (valve) insufficiency; Translations: [Aortic valve stenosis] Onset: 8 04-15-2022 Chronic Hemorrhoids (20 sources) Internal hemorrhoids; Translations: [Internal hemorrhoids without mention of complication] Episodic Comment on above: Added by Problem Clarice young Eladio; 2012-08-06; Hypertension with complications and secondary hypertension (2 sources) Hypertensive heart disease with heart failure; Translations: [Hypertensive heart and chronic kidney disease with heart failure and stage 1 through stage 4 chronic kidney disease, or unspecified chronic kidney disease] Onset: 8 Chronic Immunizations and screening for infectious disease (20 sources) Vaccination needed; Translations: [Need for prophylactic vaccination and inoculation against unspecified single disease] Episodic Influenza (1 source) Influenza due to other identified influenza virus with other respiratory manifestations; Translations: [Influenza due to other identified influenza virus with other respiratory manifestations] Onset: 5 Episodic Intestinal infection (3 sources) Enterocolitis due [...] behavior] Chronic Comment on above: Added by Problem Clarice young Eladio; 2012-08-06; Mood disorders (2 sources) Major depressive [...] 8 Chronic Comment on above: Added by Problem Clarice young Eladio; 2012-08-06; Occlusion or stenosis of precerebral arteries [...] disease] Chronic Comment on above: Added by Problem Clarice young [place]; 2012-08-06; Other and ill-defined cerebrovascular disease (20 sources) Cerebral atherosclerosis; Translations: [Cerebral atherosclerosis] Onset: 3 03-02-2022 Chronic Other and ill-defined heart disease (20 sources) Left ventricular hypertrophy; Translations: [Cardiomegaly] Chronic Comment on above: Added by Problem Clarice young [employer]; 2012-10-05; Other circulatory disease (20 sources) H/O: heart disorder; Translations: [Personal history of other diseases of circulatory system] 10-30-2022 Episodic Comment on above: Added by Problem Clarice young [employer]; 2012-10-05; Other circulatory disease (20 sources) Personal history of other diseases of circulatory system; Translations: [Acute Myocardial Infarction] Episodic Other circulatory disease (20 sources) H/O: angina pectoris; Translations: [Personal history of other diseases of circulatory system] Episodic Comment on above: Added by Problem Clarice young [employer]; 2012-10-05; Other circulatory disease (7 sources) Personal history of other diseases of the circulatory system; Translations: [Personal history of other diseases of circulatory system] 10-30-2022 Episodic Other circulatory disease (4 sources) Elevated blood pressure; Translations: [Elevated blood-pressure [...] 8 Episodic Other gastrointestinal disorders (20 sources) Personal history of other diseases of the digestive system; Translations: [History of bowel obstruction] Onset: 5 Resolved: 8 Episodic Other gastrointestinal disorders (20 sources) History of gastrointestinal bleed; Translations: [Personal history of other diseases of digestive system] Episodic Other gastrointestinal disorders (20 sources) Occult blood in stools; Translations: [Fecal occult blood test positive] Episodic Other gastrointestinal disorders (20 sources) Diarrhea; Translations: [Diarrhea] Episodic Comment on above: Added by Hallie Hendricks; 2012-04-06; Moved to [facility] Jan 01 2013 4:07PM; Other gastrointestinal disorders [...] other diseases of respiratory system] Episodic Other lower respiratory disease (6 sources) Hypoxemia; Translations: [Hypoxemia] Onset: 3 Episodic Other nervous system disorders (2 sources) [...] [Unspecified disease of spinal cord] Chronic Other nervous system disorders (1 source) Difficulty in walking, not elsewhere classified; Translations: [Difficulty in walking, not elsewhere classified] Onset: 5 Chronic Other nutritional; endocrine; and metabolic disorders [...] and visceral atherosclerosis (20 sources) Atherosclerosis of [place] arteries of the extremities with intermittent claudication; Translations: [Unspecified vascular insufficiency of intestine] Onset: 1 03-02-2022 Chronic Comment on above: Added by Hallie Hendricks; 2012-08-06; Pneumonia (except that caused by tuberculosis [...] depression] Episodic Comment on above: Added by Hallie Hendricks; 2012-08-06; Spondylosis; intervertebral disc disorders; other back problems (20 sources) Lumbar spondylosis; Translations: [Lumbosacral spondylosis without myelopathy] Onset: 3 03-02-2022 Chronic Comment on above: Added by Hallie Hendricks; 2012-04-06; Moved to [facility] Jan 01 2013 4:07PM; Spondylosis; intervertebral disc [...] / Z88.1(ICD-10) Onset: 8 Unclassified (1 source) 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 / Z79.82(ICD-10) Onset: [...] / K52.9(ICD-10) Onset: 8 Unclassified (1 source) [employer] 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/antipl atelets / Z79.02(ICD-10) [...] / K56.600(ICD-10) Onset: 8 Urinary tract infections (2 sources) Urinary tract infections Onset: 7 Past or Other Problems Problem Classification Problem Date Documented Da te Episodic/Chronic Bacterial infection; unspecified site (1 source) Personal history of Methicillin resistant Staphylococcus aureus infection; Translations: [Personal history of methicillin resis staph infection] Onset: 8 Episodic Biliary tract disease (1 source) Calculus of gallbladder and bile duct without cholecystitis without obstruction; Translations: [Calculus of gallbladder and bile duct without cholecystitis without obstruction] Onset: 4 Episodic Coronary atherosclerosis and other heart disease [...] reflux] Episodic Other gastrointestinal disorders (20 sources) H/O: colitis; Translations: [Personal history of other diseases of digestive system] Resolved: 0 Episodic Other lower respiratory disease (9 sources) H/O: hay fever; Translations: [History of allergic rhinitis] Episodic Other lower respiratory disease (7 sources) Hypoxia; Translations: [Hypoxemia] Onset: 3 Resolved: 3 05-30-2022 Episodic Other lower respiratory disease (1 source) Other nonspecific abnormal finding of lung field; Translations: [Other nonspecific abnormal finding of lung field] Onset: 3 Episodic Other nervous system disorders (1 source) Dysarthria and anarthria; Translations: [Dysarthria and anarthria] Onset: 8 Episodic Other nervous system disorders (1 source) Other lack of coordination; Translations: [Other lack of coordination] Onset: 5 Episodic Other nutritional; endocrine; and metabolic disorders [...] 9 Unclassified (5 sources) Onset: 3 04-15-2022 Urinary tract infections (20 sources) Acute urinary tract infection; Translations: [Acute cystitis] Onset: 5 Episodic NEGATED: Highlighted row has not occurred!Residual codes; unclassified (20 sources) Disease Episodic Results Test Name Value Interpretation Reference Range Facility CBC-Complete Blood Cnt No Di ffon 07-29-2024 HCT Normal 37-47 [facility] Comment on above: Result Comment: Canc elled via OM: MD Ordered Performed By: #### L 100.0100, L500.2500 #### [facility] [address] [place], [address] HGB Normal 12.0-15.0 [facility] Comment on above: Result Comment: Canc elled via OM: MD Ordered Performed By: #### L 100.0100, L500.2500 #### [facility] [address] [place], [address] MCH Normal 27.0-32.0 [facility] Comment on above: Result Comment: Canc elled via OM: MD Ordered Performed By: #### L 100.0100, L500.2500 #### [facility] [address] [place], [address] MCHC Normal 32-36 [facility] Comment on above: Result Comment: Canc elled via OM: MD Ordered Performed By: #### L 100.0100, L500.2500 #### [facility] [address] [place], [address] MCV Normal 81-99 [facility] Comment on above: Result Comment: Canc elled via OM: MD Ordered Performed By: #### L 100.0100, L500.2500 #### [facility] [address] [place], [address] PLT Normal 150-450 [facility] Comment on above: Result Comment: Canc elled via OM: MD Ordered Performed By: #### L 100.0100, L500.2500 #### [facility] [address] [place], [address] RBC Normal 4.2-5.4 [facility] Comment on above: Result Comment: Canc elled via OM: MD Ordered Performed By: #### L 100.0100, L500.2500 #### [facility] [address] [place], [address] RDW CV Normal 11.6-14.6 [facility] Comment on above: Result Comment: Canc elled via OM: MD Ordered Performed By: #### L 100.0100, L500.2500 #### [facility] [address] [place], [address] RDW SD Normal 35.1-43.9 [facility] Comment on above: Result Comment: Canc elled via OM: MD Ordered Performed By: #### L 100.0100, L500.2500 #### [facility] [address] [place], [address] WBC Normal 4.4-11.0 [facility] Comment on above: Result Comment: Canc elled via OM: MD Ordered Performed By: #### L 100.0100, L500.2500 #### [facility] [address] [place], [address] Absolute lymphocyte countOrd ered By: Neymar Cunningham on 07-28-2024 Lymphocytes Auto (Unsp spec) [#/Vol] 2.02 10*3/uL 0.83-4.51 [facility] Absolute neutrophil countOrd ered By: Neymar Cunningham on 07-28-2024 Neutrophils (Bld) [#/Vol] 5.3 10*3/uL 2.0-7.7 [facility] Anion gap in Serum or Plasma Ordered By: Neymar Cunningham on 07-28-2024 Anion gap [Moles/Vol] 7 mmol/L 5-15 [facility] Automated lymphocyte count a s percentage of total leukocytesOrdered By: Neymar Cunningham on 07-28-2024 Lymphocytes/100 WBC Auto (Unsp spec) 25.1 % [facility] BUN/creatinine ratioOrdered By: Nyemar Cunningham on 07-28-2024 Urea nitrogen/Creatinine [Mass ratio] 19.7 mg/mg - [facility] Basic Metabolic Profile (BMP )on 07-28-2024 BUN/CRE 19.7 RATIO Normal 11-28 [facility] Comment on above: Performed By: #### L 100.0100, L500.2500 #### [facility] [address] [place], [address] Calcium [Mass/Vol] 8.8 mg/dL Normal 7.6-11.0 [facility] Comment on above: Performed By: #### L 100.0100, L500.2500 #### [facility] [address] [place], [address] Chloride [Moles/Vol] 101 mmol/L Normal 98-108 [facility] Comment on above: Performed By: #### L 100.0100, L500.2500 #### [facility] [address] [place], [address] CO2 [Moles/Vol] 29.4 mmol/L Normal 21.0-32.0 [facility] Comment on above: Performed By: #### L 100.0100, L500.2500 #### [facility] [address] [place], [address] Creatinine [Mass/Vol] 0.88 mg/dL Normal 0.70-1.20 [facility] Comment on above: Performed By: #### L 100.0100, L500.2500 #### [facility] [address] [place], [address] ECRCL 31.74 ml/min Low 50-250 [facility] Comment on above: Performed By: #### L 100.0100, L500.2500 #### [facility] [address] [place], [address] GAP 7 Normal 5-15 [facility] Comment on above: Performed By: #### L 100.0100, L500.2500 #### [facility] [address] [place], [address] GFR/1.73 sq M.predicted among non-blacks MDRD (S/P/Bld) [Vol rate/Area] 63 mL/min/{1.73_m2} Normal >60 [facility] Comment on above: Result Comment: mL/m in/1.73m2 CKD-EPI Creatinine Equation (2020) Performed By: #### L 100.0100, L500.2500 #### [facility] [address] [place], [address] Glucose [Mass/Vol] 98 mg/dL Normal 70-99 [facility] Comment on above: Performed By: #### L 100.0100, L500.2500 #### [facility] [address] [place], [address] Potassium [Moles/Vol] 4.2 mmol/L Normal 3.3-5.1 [facility] Comment on above: Performed By: #### L 100.0100, L500.2500 #### [facility] [address] [place], [address] Sodium [Moles/Vol] 137 mmol/L Normal 133-145 [facility] Comment on above: Performed By: #### L 100.0100, L500.2500 #### [facility] [address] [place], [address] Urea nitrogen [Mass/Vol] 17 mg/dL Normal 4-19 [facility] Comment on above: Performed By: #### L 100.0100, L500.2500 #### [facility] [address] [place], [address] Basophil percentageOrdered B y: Neymar Cunningham on 07-28-2024 Basophils/100 WBC (Bld) 0.4 % 0-1 [facility] CBC W/Diff, Automatedon 07-10 Absolute Lymph 2.02 X10 3/uL Normal 0.83-4.51 [facility] Comment on above: Performed By: #### L 100.0100, L500.2500 #### [facility] [address] [place], [address] Absolute Neut 5.3 X10 3/uL Normal 2.0-7.7 [facility] Comment on above: Performed By: #### L 100.0100, L500.2500 #### [facility] [address] [place], [address] Basophils/100 WBC (Bld) 0.4 % Normal 0-1 [facility] Comment on above: Performed By: #### L 100.0100, L500.2500 #### [facility] [address] [place], [address] Eosinophils/100 WBC (Bld) 2.9 % Normal 0-5 [facility] Comment on above: Performed By: #### L 100.0100, L500.2500 #### [facility] [address] [place], [address] Erythrocyte distribution width (RBC) [Ratio] 14.1 % Normal 11.6-14.6 [facility] Comment on above: Performed By: #### L 100.0100, L500.2500 #### [facility] [address] [place], [address] Hematocrit (Bld) [Volume fraction] 22.1 % Low 37-47 [facility] Comment on above: Performed By: #### L 100.0100, L500.2500 #### [facility] [address] [place], [address] Hemoglobin (Bld) [Mass/Vol] 7.3 g/dL Low 12.0-15.0 [facility] Comment on above: Performed By: #### L 100.0100, L500.2500 #### [facility] [address] [place], [address] IG% 0.100 Normal 0.0-0.9 [facility] Comment on above: Result Comment: IG% - Immature Granulocytes (promyelocytes, myelocytes and metamyelocytes) > 1% indicates that a LEFT SHIFT is Present. Performed By: #### L 100.0100, L500.2500 #### [facility] [address] [place], [address] Lymphocytes/100 WBC (Bld) 25.1 % Normal 19-41 [facility] Comment on above: Performed By: #### L 100.0100, L500.2500 #### [facility] [address] [place], [address] MCH (RBC) [Entitic mass] 32.6 pg High 27.0-32.0 [facility] Comment on above: Performed By: #### L 100.0100, L500.2500 #### [facility] [address] [place], [address] MCHC (RBC) [Mass/Vol] 33.0 g/dL Normal 32-36 [facility] Comment on above: Performed By: #### L 100.0100, L500.2500 #### [facility] [address] [place], [address] MCV (RBC) [Entitic vol] 98.7 fL Normal 81-99 [facility] Comment on above: Performed By: #### L 100.0100, L500.2500 #### [facility] [address] [place], [address] Monocytes/100 WBC (Bld) 5.8 % Normal 0-10 [facility] Comment on above: Performed By: #### L 100.0100, L500.2500 #### [facility] [address] [place], [address] Neutrophils/100 WBC (Bld) 65.7 % Normal 47-70 [facility] Comment on above: Performed By: #### L 100.0100, L500.2500 #### [facility] [address] [place], [address] Nucleated RBC (Bld) [#/Vol] 0 10*3/uL Normal 0-5 [facility] Comment on above: Performed By: #### L 100.0100, L500.2500 #### [facility] [address] [place], [address] Platelet mean volume (Bld) [Entitic vol] 9.4 fL Normal 6.2-12.0 [facility] Comment on above: Performed By: #### L 100.0100, L500.2500 #### [facility] [address] [place], [address] Platelets (Bld) [#/Vol] 135 10*3/uL Low 150-450 [facility] Comment on above: Performed By: #### L 100.0100, L500.2500 #### [facility] [address] [place], [address] RBC (Bld) [#/Vol] 2.24 10*6/uL Low 4.2-5.4 [facility] Comment on above: Performed By: #### L 100.0100, L500.2500 #### [facility] [address] [place], [address] RDW SD 50.4 fl High 35.1-43.9 [facility] Comment on above: Performed By: #### L 100.0100, L500.2500 #### [facility] [address] [place], [address] WBC (Bld) [#/Vol] 8.1 10*3/uL Normal 4.4-11.0 [facility] Comment on above: Performed By: #### L 100.0100, L500.2500 #### [facility] [address] [place], [address] Carbon dioxide, total [Moles /volume] in Central venous bloodOrdered By: Neymar Cunningham on 07-28-2024 CO2 [Moles/Vol] 29.4 mmol/L 21.0-32.0 [facility] Chloride assayOrdered By: Angel Cunningham on 07-28-2024 Chloride [Moles/Vol] 101 mmol/L 98-108 [facility] Electrocardiogram reportOrde red By: Kaden Corcoran on 07-28-2024 EKG study [facility] [address] [place] [address] 12 Lead EKG 07/25/24 1542 MR#: [id number] Acct: [id number] Name: KATHERINE JUDGE Rep #:[id number] : 1935 89 From: Kaden Corcoran MD Attending Dr: Dr. Neymar Cunningham MD Status: ADM IN Ordering Dr: Jacobo Moya DO Date: 0 07/25/24 Location: [facility] Sex: F C Admitted: 07/25/24 Test Reason : FALL Blood Pressure : */* mmHG Vent. Rate : 66 BPM Atrial Rate : 66 BPM P-R Int : 170 ms QRS Dur : 144 ms QT Int : 462 ms P-R-T Axes : 33 105 10 degrees QTcB Int : 484 ms Normal sinus rhythm Right bundle branch block Abnormal ECG No previous ECGs available Confirmed by KADEN CORCORAN MD ([id number]), tape editor SANDY BAUTISTA ([id number]) on :37:03 AM Referred By: Confirmed By: KADEN CORCORAN MD [id number] Date _ Kaden Corcoran MD CC: Dr. Kam Ocampo Sr., DO; Dr. Jacobo Moya, DO; Dr. Neymar Cunningham MD ~ Signed [facility] Work Phone: Eosinophil percentageOrdered By: Neymar Cunningham on 07-28-2024 Eosinophils/100 WBC (Bld) 2.9 % 0-5 [facility] Erythrocyte distribution wid th ratioOrdered By: Neymar Cunningham on 07-28-2024 Erythrocyte distribution width (RBC) [Ratio] 14.1 % 11.6-14.6 [facility] Erythrocyte distribution wid th standard deviationOrdered By: Neymar Cunningham on 07-28-2024 Erythrocyte distribution width (RBC) [Ratio] 50.4 fl High 35.1-43.9 [facility] Ferritinon 07-28-2024 Ferritin [Mass/Vol] 176 ng/mL Normal 22-378 [facility] Comment on above: Performed By: #### L 503.0106, L503.6030, L100.9950, L503.6550 #### [facility] [address] [place], [place], [address] Folate [Moles/volume] in Ser um or PlasmaOrdered By: Neymar Cunningham on 07-28-2024 Folate [Moles/Vol] 23.10 ng/mL 4.60-34.80 [facility] Comment on above: Hemolysis, Results w ill be affected, Requires Recollection. Folates,Serum (Folic Acid)on 07-28-2024 FOLATES,SERUM 23.10 ng/mL Normal 4.60-34.80 [facility] Comment on above: Result Comment: Hemo lysis, Results will be affected, Requires Recollection. Performed By: #### L 506.0200 #### [facility] [address] [place], [place], [address] Glomerular filtration rate ( GFR) estimation/1.73 sq m using serum, plasma, or whole bOrdered By: Neymar Cunningham on 07-28-2024 GFR/1.73 sq M.predicted among non-blacks MDRD (S/P/Bld) [Vol rate/Area] 63 mL/min/{1.73_m2} >60 [facility] Comment on above: mL/min/1.73m2 CKD-EP I Creatinine Equation (2020) HH, Hemoglobin AND Hematocri ton 07-28-2024 HCT Normal [address] [place] [address] Comment on above: Result Comment: Canc elled via OM: Order cancelled - Patient discharged Performed By: #### L 100.0600 #### [facility] [address] [place], [address] HGB Normal 12.0-15.0 [facility] Comment on above: Result Comment: Canc elled via OM: Order cancelled - Patient discharged Performed By: #### L 100.0600 #### [facility] [address] [place], [address] HCT Normal [address] [place] [address] Comment on above: Result Comment: DANIEL ENT DISCHARGED Performed By: #### L 100.0600 #### [facility] [address] [place], [address] HGB Normal 12.0-15.0 [facility] Comment on above: Result Comment: ADNIEL ENT DISCHARGED Performed By: #### L 100.0600 #### [facility] [address] [place], [address] Hematocrit Auto (Bld) [Volum e fraction]Ordered By: Neymar Cunningham on 07-28-2024 Hematocrit (Bld) [Volume fraction] 22.1 % Low [address] [place] [address] Hemoglobin measurementOrdere d By: Neymar Cunningham on 07-28-2024 Hemoglobin (Bld) [Mass/Vol] 7.3 g/dL Low 12.0-15.0 [facility] Immature granulocytes/100 WB C Auto (Bld)Ordered By: Neymar Cunningham on 07-28-2024 Immature granulocytes/100 WBC (Bld) 0.100 % 0.0-0.9 [facility] Comment on above: IG% - Immature Granu locytes (promyelocytes, myelocytes and metamyelocytes) > 1% indicates that a LEFT SHIFT is Present. Iron measurement (mass/mass) Ordered By: Neymar Cunningham on 07-28-2024 Iron (Unsp spec) [Mass/Mass] 38 ug/dL Low 50-170 [facility] Iron+Iron Binding Capacityon 07-28-2024 TIBC 175 ug/dL Low 250-450 [facility] Comment on above: Performed By: #### L 503.0106, L503.6030, L100.9950, L503.6550 #### [facility] [address] [place], [address] MCV (mean corpuscular volume ) determinationOrdered By: Neymar Cunningham on 07-28-2024 MCV (RBC) [Entitic vol] 98.7 fL 81-99 [facility] Mean corpuscular hemoglobin (MCH) determinationOrdered By: Neymar Cunningham on 07-28-2024 MCH (RBC) [Entitic mass] 32.6 pg High 27.0-32.0 [facility] Mean corpuscular hemoglobin concentration (MCHC) determinationOrdered By: Neymar Cunningham on 07-28-2024 MCHC (RBC) [Mass/Vol] 33.0 g/dL 32-36 [facility] Mean platelet volume determi nationOrdered By: Neymar Cunningham on 07-28-2024 Platelet mean volume (Bld) [Entitic vol] 9.4 fL 6.2-12.0 [facility] Monocyte percentageOrdered B y: Neymar Cunningham on 07-28-2024 Monocytes/100 WBC (Bld) 5.8 % 0-10 [facility] Neutrophil percentageOrdered By: Neymar Cunningham on 07-28-2024 Neutrophils/100 WBC (Bld) 65.7 % 47-70 [facility] No Panel InformationOrdered By: Neymar Cunningham on 07-28-2024 Unsaturated Iron Binding Capacity 137 ug/dL Low 228-428 [facility] Nucleated red blood cell per centageOrdered By: Neymar Cunningham on 07-28-2024 Nucleated RBC/100 WBC (Bld) [Ratio] 0 % 0-5 [facility] Platelet countOrdered By: Angel Cunningham on 07-28-2024 Platelets (Bld) [#/Vol] 135 10*3/uL Low 150-450 [facility] Potassium measurement (mass/ volume)Ordered By: Neymar Cunningham on 07-28-2024 Potassium (Unsp spec) [Mass/Vol] 4.2 mmol/L 3.3-5.1 [facility] RBC Auto (Bld) [#/Vol]Ordere d By: Neymar Cunningham on 07-28-2024 RBC (Bld) [#/Vol] 2.24 10*6/uL Low 4.2-5.4 [facility] Retic Panelon 07-28-2024 IM RET FRACTION 16.80 High 3.00-15.90 [facility] Comment on above: Performed By: #### L 503.0106, L503.6030, L100.9950, L503.6550 #### [facility] [address] [place], [address] RET-HE 34.0 pg Normal 30-35 [facility] Comment on above: Performed By: #### L 503.0106, L503.6030, L100.9950, L503.6550 #### [facility] [address] [place], [address] Retic Count 2.42 High 0.5-1.5 [facility] Comment on above: Performed By: #### L 503.0106, L503.6030, L100.9950, L503.6550 #### [facility] [address] [place], [address] Reticulocyte hemoglobin equi valent (RET-He) measurementOrdered By: Neymar Cunningham on 07-28-2024 Hemoglobin (Reticulocytes) [Entitic mass] 34.0 pg 30-35 [facility] Reticulocytes Auto (Bld) [#/ Vol]Ordered By: Neymar Cunningham on 07-28-2024 Reticulocytes/100 RBC (Bld) 2.42 % High 0.5-1.5 [facility] Serum creatinine measurement (mass/volume)Ordered By: Neymar Cunningham on 07-28-2024 Creatinine [Mass/Vol] 0.88 mg/dL 0.70-1.20 [facility] Serum glucose measurement (m ass/volume)Ordered By: Neymar Cunningham on 07-28-2024 Glucose [Mass/Vol] 98 mg/dL 70-99 [facility] Serum or plasma calcium светлана urement (mass/volume)Ordered By: Neymar Cunningham on 07-28-2024 Calcium [Mass/Vol] 8.8 mg/dL 7.6-11.0 [facility] Serum or plasma ferritin maria d surement (mass/volume)Ordered By: Neymar Cunningham on 07-28-2024 Ferritin [Mass/Vol] 176 ng/mL 22-378 [facility] Serum or plasma iron saturat ion measurement (mass fraction)Ordered By: Neymar Cunningham on 07-28-2024 Iron saturation [Mass fraction] 22.0 % 13-59 [facility] Comment on above: Previous reported re sult: 22.0 %Edited by: BRANDEN on 07/28/24:1516 Serum or plasma urea nitroge n measurement (mass/volume)Ordered By: Neymar Cunningham on 07-28-2024 Urea nitrogen [Mass/Vol] 17 mg/dL 4-19 [facility] Sodium levelOrdered By: Olive Cunningham on 07-28-2024 Sodium [Moles/Vol] 137 mmol/L 133-145 [facility] Vitamin B12on 07-28-2024 Cobalamin (Vitamin B12) [Mass/Vol] 867 pg/mL Normal 180-914 [facility] Comment on above: Performed By: #### L 503.0106, L503.6030, L100.9950, L503.6550 #### [facility] [address] [place], [address] Vitamin B12 ser/plasOrdered By: Neymar Cunningham on 07-28-2024 Cobalamin (Vitamin B12) [Mass/Vol] 867 pg/mL 180-914 [facility] White blood cell (WBC) count Ordered By: Neymar Cunningham on 07-28-2024 WBC (Bld) [#/Vol] 8.1 10*3/uL 4.4-11.0 [facility] Basic Metabolic Profile (BMP )on 07-27-2024 BUN/CRE 16.5 RATIO Normal 10-20 [facility] Comment on above: Performed By: #### L 400.0001 #### [facility] [address] [place], [address] Calcium [Mass/Vol] 8.8 mg/dL Normal 7.6-11.0 [facility] Comment on above: Performed By: #### L 400.0001 #### [facility] [address] [place], [address] Chloride [Moles/Vol] 99 mmol/L Normal 98-108 [facility] Comment on above: Performed By: #### L 400.0001 #### [facility] [address] [place], [address] CO2 [Moles/Vol] 27.0 mmol/L Normal 21.0-32.0 [facility] Comment on above: Performed By: #### L 400.0001 #### [facility] [address] [place], [address] Creatinine [Mass/Vol] 0.79 mg/dL Normal 0.70-1.20 [facility] Comment on above: Performed By: #### L 400.0001 #### [facility] [address] [place], [address] ECRCL 34.91 ml/min Low 50-250 [facility] Comment on above: Performed By: #### L 400.0001 #### [facility] [address] [place], [address] GAP 9 Normal 5-15 [facility] Comment on above: Performed By: #### L 400.0001 #### [facility] [address] [place], [address] GFR/1.73 sq M.predicted among non-blacks MDRD (S/P/Bld) [Vol rate/Area] 72 mL/min/{1.73_m2} Normal >60 [facility] Comment on above: Result Comment: mL/m in/1.73m2 CKD-EPI Creatinine Equation (2020) Performed By: #### L 400.0001 #### [facility] [address] [place], [address] Glucose [Mass/Vol] 140 mg/dL High 70-99 [facility] Comment on above: Performed By: #### L 400.0001 #### [facility] [address] [place], [address] Potassium [Moles/Vol] 4.6 mmol/L Normal 3.3-5.1 [facility] Comment on above: Performed By: #### L 400.0001 #### [facility] [address] [place], [address] Sodium [Moles/Vol] 135 mmol/L Normal 133-145 [facility] Comment on above: Performed By: #### L 400.0001 #### [facility] [address] [place], [address] Urea nitrogen [Mass/Vol] 13 mg/dL Normal 4-19 [facility] Comment on above: Performed By: #### L 400.0001 #### [facility] [address] [place], [address] CBC W/Diff, Automatedon 07-10 Absolute Lymph 0.91 X10 3/uL Normal 0.83-4.51 [facility] Comment on above: Performed By: #### L 400.0001 #### [facility] [address] [place], [address] Absolute Neut 9.4 X10 3/uL High 2.0-7.7 [facility] Comment on above: Performed By: #### L 400.0001 #### [facility] [address] [place], [address] Basophils/100 WBC (Bld) 0.1 % Normal 0-1 [facility] Comment on above: Performed By: #### L 400.0001 #### [facility] [address] [place], [address] Eosinophils/100 WBC (Bld) 0.0 % Normal 0-5 [facility] Comment on above: Performed By: #### L 400.0001 #### [facility] [address] [place], [address] Erythrocyte distribution width (RBC) [Ratio] 14.2 % Normal 11.6-14.6 [facility] Comment on above: Performed By: #### L 400.0001 #### [facility] [address] [place], [address] Hematocrit (Bld) [Volume fraction] 27.0 % Low 37-47 [facility] Comment on above: Performed By: #### L 400.0001 #### [facility] [address] [place], [address] Hemoglobin (Bld) [Mass/Vol] 9.0 g/dL Low 12.0-15.0 [facility] Comment on above: Performed By: #### L 400.0001 #### [facility] [address] [place], [address] IG% 0.400 Normal 0.0-0.9 [facility] Comment on above: Result Comment: IG% - Immature Granulocytes (promyelocytes, myelocytes and metamyelocytes) > 1% indicates that a LEFT SHIFT is Present. Performed By: #### L 400.0001 #### [facility] [address] [place], [address] Lymphocytes/100 WBC (Bld) 8.5 % Low 19-41 [facility] Comment on above: Performed By: #### L 400.0001 #### [facility] [address] [place], [address] MCH (RBC) [Entitic mass] 33.0 pg High 27.0-32.0 [facility] Comment on above: Performed By: #### L 400.0001 #### [facility] [address] [place], [address] MCHC (RBC) [Mass/Vol] 33.3 g/dL Normal 32-36 [facility] Comment on above: Performed By: #### L 400.0001 #### [facility] [address] [place], [address] MCV (RBC) [Entitic vol] 98.9 fL Normal 81-99 [facility] Comment on above: Performed By: #### L 400.0001 #### [facility] [address] [place], [address] Monocytes/100 WBC (Bld) 2.9 % Normal 0-10 [facility] Comment on above: Performed By: #### L 400.0001 #### [facility] [address] [place], [address] Neutrophils/100 WBC (Bld) 88.1 % High 47-70 [facility] Comment on above: Performed By: #### L 400.0001 #### [facility] [address] [place], [address] Nucleated RBC (Bld) [#/Vol] 0 10*3/uL Normal 0-5 [facility] Comment on above: Performed By: #### L 400.0001 #### [facility] [address] [place], [address] Platelet mean volume (Bld) [Entitic vol] 9.3 fL Normal 6.2-12.0 [facility] Comment on above: Performed By: #### L 400.0001 #### [facility] [address] [place], [address] Platelets (Bld) [#/Vol] 152 10*3/uL Normal 150-450 [facility] Comment on above: Performed By: #### L 400.0001 #### [facility] [address] [place], [address] RBC (Bld) [#/Vol] 2.73 10*6/uL Low 4.2-5.4 [facility] Comment on above: Performed By: #### L 400.0001 #### [facility] [address] [place], [address] RDW SD 51.3 fl High 35.1-43.9 [facility] Comment on above: Performed By: #### L 400.0001 #### [facility] [address] [place], [address] WBC (Bld) [#/Vol] 10.7 10*3/uL Normal 4.4-11.0 [facility] Comment on above: Performed By: #### L 400.0001 #### [facility] [address] [place], [address] Basic Metabolic Profile (BMP )on 07-26-2024 BUN/CRE 12.8 RATIO Normal 10-20 [facility] Comment on above: Performed By: #### L 100.0100, L500.2500 #### [facility] [address] [place], [address] Calcium [Mass/Vol] 8.9 mg/dL Normal 7.6-11.0 [facility] Comment on above: Performed By: #### L 100.0100, L500.2500 #### [facility] [address] [place], [address] Chloride [Moles/Vol] 99 mmol/L Normal 98-108 [facility] Comment on above: Performed By: #### L 100.0100, L500.2500 #### [facility] [address] [place], [address] CO2 [Moles/Vol] 28.3 mmol/L Normal 21.0-32.0 [facility] Comment on above: Performed By: #### L 100.0100, L500.2500 #### [facility] [address] [place], [address] Creatinine [Mass/Vol] 0.90 mg/dL Normal 0.70-1.20 [facility] Comment on above: Performed By: #### L 100.0100, L500.2500 #### [facility] [address] [place], [address] ECRCL 31.04 ml/min Low 50-250 [facility] Comment on above: Performed By: #### L 100.0100, L500.2500 #### [facility] [address] [place], [address] GAP 8 Normal 5-15 [facility] Comment on above: Performed By: #### L 100.0100, L500.2500 #### [facility] [address] [place], [address] GFR/1.73 sq M.predicted among non-blacks MDRD (S/P/Bld) [Vol rate/Area] 61 mL/min/{1.73_m2} Normal >60 [facility] Comment on above: Result Comment: mL/m in/1.73m2 CKD-EPI Creatinine Equation (2020) Performed By: #### L 100.0100, L500.2500 #### [facility] [address] [place], [address] Glucose [Mass/Vol] 151 mg/dL High 70-99 [facility] Comment on above: Performed By: #### L 100.0100, L500.2500 #### [facility] [address] [place], [address] Potassium [Moles/Vol] 4.4 mmol/L Normal 3.3-5.1 [facility] Comment on above: Performed By: #### L 100.0100, L500.2500 #### [facility] [address] [place], [address] Sodium [Moles/Vol] 135 mmol/L Normal 133-145 [facility] Comment on above: Performed By: #### L 100.0100, L500.2500 #### [facility] [address] [place], [address] Urea nitrogen [Mass/Vol] 12 mg/dL Normal 4-19 [facility] Comment on above: Performed By: #### L 100.0100, L500.2500 #### [facility] [address] [place], [address] CBC-Complete Blood [facility] Erythrocyte distribution width (RBC) [Ratio] 14.1 % Normal 11.6-14.6 [facility] Comment on above: Performed By: #### L 100.0100, L500.2500 #### [facility] [address] [place], [address] Hematocrit (Bld) [Volume fraction] 29.0 % Low 37-47 [facility] Comment on above: Performed By: #### L 100.0100, L500.2500 #### [facility] [address] [place], [address] Hemoglobin (Bld) [Mass/Vol] 10.0 g/dL Low 12.0-15.0 [facility] Comment on above: Performed By: #### L 100.0100, L500.2500 #### [facility] [address] [place], [address] MCH (RBC) [Entitic mass] 33.2 pg High 27.0-32.0 [facility] Comment on above: Performed By: #### L 100.0100, L500.2500 #### [facility] [address] [place], [address] MCHC (RBC) [Mass/Vol] 34.5 g/dL Normal 32-36 [facility] Comment on above: Performed By: #### L 100.0100, L500.2500 #### [facility] [address] [place], [address] MCV (RBC) [Entitic vol] 96.3 fL Normal 81-99 [facility] Comment on above: Performed By: #### L 100.0100, L500.2500 #### [facility] [address] [place], [address] Platelet mean volume (Bld) [Entitic vol] 8.9 fL Normal 6.2-12.0 [facility] Comment on above: Performed By: #### L 100.0100, L500.2500 #### [facility] [address] [place], [address] Platelets (Bld) [#/Vol] 171 10*3/uL Normal 150-450 [facility] Comment on above: Performed By: #### L 100.0100, L500.2500 #### [facility] [address] [place], [address] RBC (Bld) [#/Vol] 3.01 10*6/uL Low 4.2-5.4 [facility] Comment on above: Performed By: #### L 100.0100, L500.2500 #### [facility] [address] [place], [address] RDW SD 49.8 fl High 35.1-43.9 [facility] Comment on above: Performed By: #### L 100.0100, L500.2500 #### [facility] [address] [place], [address] WBC (Bld) [#/Vol] 8.9 10*3/uL Normal 4.4-11.0 [facility] Comment on above: Performed By: #### L 100.0100, L500.2500 #### [facility] [address] [place], [address] Echocardiogram study reportO rdered By: Kaden Corcoran on 07-26-2024 Study report [facility] Cardiovascular Services [address] [place] [address] Echo Complete 07/26/24 0824 MR#: [id number] Acct: [id number] Name: KATHERINE JUDGE Rep #:[id number] : 1935 89 From: Kaden Herrera Attending Dr: Dr. Neymar Cunningham MD Status: ADM IN Ordering Dr: Hayden Diaz te: 07/25/24 Location: [facility] Sex: F C Admitted: 07/25/24 Reason For Study Reason For Study: CHF Procedure This was a 2D Doppler, Color Flow transthoracic echocardiogram. Exam performed portable in patient room. Left Ventricle Normal LV size. Left ventricular systolic function is normal. The left ventricular ejection fraction is 70 %. Stage 1 diastolic dysfunction. No regional wall motion abnormalities noted. Right Ventricle Normal RV size. Normal systolic function. Atria Normal left atrium. Normal right atrium. Hypermobile atrial septum. Mitral Valve There is mild mitral annular calcification. Posterior leaflet mitral valve prolapse. Mild-Moderate (1-2+) anteriorly directed mitral valve insufficiency. Tricuspid Valve Mild focal thickening of the tricuspid valve, posterior leaflet. Moderate (2+) tricuspid valve insufficiency. Pulmonary artery systolic pressure is 65 mmHg. Moderate pulmonary hypertension. Aortic Valve Trisinus/trileaflet aortic valve. Mild focal aortic valve calcification. Pulmonic Valve Normal pulmonic valve. Great Vessels Mildly calcified aortic root. The pulmonary artery is normal size. Normal inferior vena cava. Pericardium/Pleural No pericardial effusion. Medication Performed a rapid injection of agitated mix of 9 cc saline and 1cc air to assessfor atrial septal defect. MMode/2D Measurements & Calculations LVIDd: 3.3 cm IVSd: 1.2 cm Ao root diam: 2.8 cm LVIDs: 1.8 cm LVPWd: 1.2 cm RVDd: 3.8 cm FS: 44.9 % LAV(MOD-bp): 55.0 ml LVAd ap4: 17.6 cm2 SV(MOD-sp4): 33.7 ml LAV(MOD-sp2): 44.5 ml LVLd ap4: 5.5 cm LAV(MOD-sp4): 69.7 ml EDV(MOD-sp4): 47.0 ml EDV(sp4-el): 47.7 ml LVAs ap4: 8.2 cm2 LVLs ap4: 4.1 cm ESV(MOD-sp4): 13.3 ml ESV(sp4-el): 13.8 ml EF(MOD-sp4): 71.8 % EF(sp4-el): 71.0 % SV(sp4-el): 33.9 ml LA A4 area: 22.4 cm2 LA dimension(2D): 3.0 cm RA A4 area: 13.4 cm2 TAPSE: 2.0 cm Time Measurements MV dec time: 0.31 sec Doppler Measurements & Calculations MV E max tiffany: 61.4 cm/sec Lat Peak E' Tiffany: 6.6 cm/sec Med Peak E' Tiffany: 4.1 cm/sec MV A max tiffany: 102.8 cm/sec E/E' lat: 9.3 E/E' med: 14.9 MV E/A: 0.60 MV dec slope: 196.4 cm/sec2 Ao V2 max: 189.7 cm/sec LV V1 max: 109.1 cm/sec Ao max P.4 mmHg LV V1 max P.8 mmHg Ao V2 mean: 125.0 cm/sec Ao mean P.2 mmHg Ao V2 VTI: 41.2 cm PA V2 max: 121.8 cm/sec PI end-d tiffany: 126.4 cm/sec TR max tiffany: 389.7 cm/sec TR max P.7 mmHg ECHO/Echo Complete Interpretation Summary Hypermobile atrial septum. Normal LV size. Left ventricular systolic function is normal. The left ventricular ejection fraction is 70 %. Stage 1 diastolic dysfunction. Mild-Moderate (1-2+) anteriorly directed mitral valve insufficiency. Posterior leaflet mitral valve prolapse. Moderate pulmonary hypertension. Ordering Physician: Hayden Diaz Referring Physician: Kam Ocampo Performed By: Celeste Gore, YUKI, RVT 07/26/24 1001 Date _ Kaden Corcoran MD CC: Dr. Hayden Diaz, DO; Dr. Kam Ocampo Sr., DO; Dr. Neymar Cunningham MD ~ Date Dictated: 07/26/24823 Date Transcribed: 07/26/24 100 Remotely Piloted Vehicle Controller: Signed [facility] Work Phone: HH, Hemoglobin AND Hematocri ton 07-26-2024 Hematocrit (Bld) [Volume fraction] 29.3 % Low 37-47 [facility] Comment on above: Performed By: #### L 400.0001 #### [facility] Laboratory [address] [place], [place], [id number] Hemoglobin (Bld) [Mass/Vol] 9.7 g/dL Low 12.0-15.0 [facility] Comment on above: Performed By: #### L 400.0001 #### [facility] Laboratory [address] [place], [place], [address] Hip Min 2 Views (Portable)on 07-26-2024 Hip Min 2 Views (Portable) [facility] Imaging Services [address] [place], [place] [address] Hip Min 2 Views (Portable) MR#: [id number] Acct: [id number] Name: KATHERINE JUDGE Rep #: [id number] : 1935 F 89 From: Jc Bland MD PCP: Dr. Kam Ocampo Sr., DO Status: ADM IN Study: Hip Min 2 Views (Portable) Date of Exam: 07/26 Exam# [id number] Ordering Dr: Thanh Mclaughlin DO PROCEDURE: HIP MIN 2 VIEWS (PORTABLE) 07/26/2024 REASON FOR EXAM: FX REPAIR IN OR TECHNIQUE: Fluoroscopic images of the right hip. COMPARISON: 07/25/2024. FINDINGS: Fluoroscopic images for ORIF of a intertrochanteric right femoral fracture. Fluoroscopic time of 44.2 seconds. 4.90 mGy. See procedure report for full details. RAD/Hip Min 2 Views (Portable) IMPRESSION: As above. Reading Location: [id number] CC: Dr. Kam Ocampo Sr., DO; Dr. Thanh Mclaughlin DO Remotely Piloted Vehicle Controller: Signed Normal [facility] L499.0042on 07-26-2024 Trop T High Sen 27 ng/L High <=14 [facility] Comment on above: Performed By: #### L 100.0100, L500.2500 #### [facility] Laboratory [address] [place], [address] L499.0043on 07-26-2024 Trop T High Sen 25 ng/L High <=14 [facility] Comment on above: Performed By: #### L 400.0001 #### [facility] Laboratory [address] [facility] [place], [place], [id number] MR/POSTOP.ANEon 07-26-2024 MR/POSTOP.ANE [facility] Medical Records Department [address] [place] [address] Anesthesia Postop Eval I 07/26/24 1832 MR#: [id number] Acct: [id number] Name: KATHERINE JUDGE Rep #: [id number] : 1935 89 From: Florentin Clemens II, CRNA PCP: Dr. Kam Ocampo Sr., DO Status:ADM IN Y Race: C Location: [facility] Anesthesia: Postop Eval I Current Vital Signs Temperature: 97.7 F Pulse Rate: 100 Blood Pressure: 151/61 Respiratory Rate: 24 Pulse Ox: 100 Oxygen Delivery Method: Non-Rebreather Oxygen Flow Rate (L/min): 15 Assessment Airway patent: Yes Spontaneous unlabored respirations: Yes Mental status: Awake nausea: No Vomiting: No Anesthesia Complication: No Fluid Hydration Crystalloid volume administer (ml): 600 Total IV fluid infused: 600 Progress Note Post-operative progress note: VSS see PACU notes for detaILS Anesthesia document: Postop Eval 1 completed: Yes 07/26/24 1833 Date Florentin Clemens II INSPECTOR SHELLS Cosigner Signature: Date CC: Signed Normal [facility] MR/[id number] 07-26-2024 /[facility] Medical Records Department [address] [place] [address] Anesthesia Postop Eval II 07/26/24 1843 MR#: [id number] Acct: [id number] Name: KATHERINE JUDGE Rep #: [id number] : 1935 89 From: Rocky Sidhu MD PCP: Dr. 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.DBAK Spontaneous unlabored Yes 07/26/24 18:33 INSPECTOR SHELLS.DBAK respirations Mental status Awake 07/26/24 18:33 INSPECTOR SHELL[employer].DBAK nausea No 07/26/24 18:33 INSPECTOR SHE[employer].DBAK Vomiting No 07/26/24 18:33 INSPECTOR SHE[employer].DBAK Anesthesia Postop Eval I: Fluid Summary Crystalloid volume administer 600 07/26/24 18:33 INSPECTOR SHELLS.DBAK (ml) Colloids volume administered ( ml) Blood Product volume administered (ml) Total IV fluid infused 600 07/26/24 18:33 INSPECTOR SHELLS.DBAK Anesthesia Postop Eval I: Summary Notes Anesthesia Complication No 07/26/24 18:33 INSPECTOR SHELLS.DBAK Anesthesia Complication Comment: Post-operative progress note VSS see PACU notes 07/26/24 18:33 INSPECTOR SHELLS.DBAK for detaILS Anesthesia: Postop Eval II Evaluation Mental status: Awake Pain Level: 0 nausea: No Vomiting: No Complications Anesthesia Complication: No 07/26/24 1843 Date Rocky Sidhu MD Cosigner Signature: Date CC: Signed Normal [facility] Operative Reporton 5 Operative Report [facility] Medical Records Department [address] [place] [address] Operative Report 07/26/24 1818 MR#: [id number] Acct: [id number] Name: KATHERINE JUDGE Wilber Rep #: [id number] : 1935 89 From: Thanh Mclaughlin DO PCP: Dr. 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 Type of Anesthesia: General RN Documented Start/Stop Times: Operation Date: 07/26/24 16:15 Case Time Into Pre-Op 07/26/24 15:29 Anesthesia Start 07/26/24 16:37 Into Room 07/26/24 16:37 Procedure Start 07/26/24 17:27 Procedure End 07/26/24 18:00 Procedure Start Time: 17:27 Procedure Stop Time: 18:00 Select all DRAINS/GRAFTS/IMPLANTS that apply: Prosthetic device Prosthetic device details: Synthes short TFN size 10 Estimated Blood Loss: 10 Specimen collected: No Description of surgery: Preoperative diagnosis: Right hip intertrochanteric femur fracture Postoperative diagnosis: Same Procedure: Cephalo-medullary fixation right hip Implants: Synthes short nail 130 deg 10 mm diameter 90 mm helical blade 32 mm screw Anesthesia: General EBL: 10 Complications: None Condition: Stable to PACU Indication for procedure: 89-year-old female patient with ground-level fall sustaining injury to hip. Fracture demonstrated intertrochanteric femur fracture pattern. Risk benefits and alternatives were reviewed including risk of bleeding infection nerve, artery, bone, tissue damage, blood clot need for further surgery and continued pain. Procedure: Patient met in the preoperative holding area once again the operative extremity was identified by both patient and physician and was marked. Patient was met by anesthesia and IV was started . patient was brought back to the to the operating room anesthesia was started. Patient was then positioned on the fracture table all bony prominences were well-padded. patient was then positioned with abduction internal rotation and traction and fluoroscopy was brought in to ensure that an adequate reduction could be performed. Patient was then prepped and draped in usual sterile fashion and timeout was called to ensure the proper patient procedure and extremity were being contemplated. Fluoroscopy was used to altagracia the tip of the greater trochanter and a 3 fingerbreadth incision was made 2 finger breaths proximal to the tip of the greater trochanter. Was carried carried down through the skin and subcutaneous tissue as well as the gluteal fascia. Guidepin was then inserted through the tip of the greater trochanter directed towards the level of lesser trochanter this was checked in both AP and lateral projections. An opening reamer was performed. Following this was the insertion of the nail the appropriate height jig was used and a triple trocar sleeve was advanced to the skin and a stab incision was made at the trocar was inserted to the level of the bone and a guidepin was placed into the femoral neck and head checked on both AP and lateral projections. This was then measured and appropriately sized helical blade was inserted the nail was locked proximally the fracture was compressed and a locking screw was placed distally the same incision was extended slightly distally to allow the insertion of the trocar for the transverse screw. This was then drilled and measured under fluoroscopy and the appropriate size screw was inserted. Final AP and lateral projections were saved to the PACS system of the entire construct the wounds were thoroughly irrigated the fascia was closed with #1 [id number] Vicryls followed by 2-0 Vicryl in the subcutaneous tissues followed by george in the skin. 0.5% Marcaine with epinephrine was injected into the subcutaneous tissues dressing was applied form of Xeroform 4 x 4 ABD and Ioban tape. Patient tolerated procedure well there is no intraoperative complications and was brought back to the PACU in stable condition. Surgical Findings: Intertrochanteric femur fracture Complications Complications: No 07/26/240 Cosigner Signature (if applicable): CC: Dr. Hayden Diaz, DO; Dr. Kam Ocampo Sr., DO; Dr. Thanh Mclaughlin, DO Signed Normal [facility] TSH DL <= 0.005 mIU/L QnOrde red By: Rocky Sidhu on 07-26-2024 TSH Qn 2.060 uIU/mL 0.300-4.20 0 [facility] Thyroid Stim Hormone (TSH)on 07-26-2024 TSH 2.060 uIU/mL Normal 0.300-4.20 0 [facility] Comment on above: Performed By: #### L 400.0001 #### [facility] Laboratory [facility] [place], [address] Troponin T.cardiac [Mass/vol ume] in Serum or Plasma by High sensitivity methodOrdered By: Hayden Diaz on 07-26-2024 Troponin T.cardiac High sensitivity method [Mass/Vol] 25 ng/L High <14 [facility] Troponin T.cardiac High sensitivity method [Mass/Vol] 27 ng/L High <14 [facility] Type AND Screenon 07-26-2024 Ab SCREEN GEL TNP Normal [facility] Comment on above: Order Comment: S Performed By: #### L 100.0100, L500.2500 #### [facility] Laboratory [address] [place], [address] 12 Lead EKGon 07-25-2024 12 Lead EKG [facility] Cardiovascular Services [address] [place] [address] 12 Lead EKG 07/25/24 1542 MR#: [id number] Acct: [id number] Name: KATHERINE JUDGE Rep #: [id number] : 1935 89 From: Kaden Corcoran MD Attending Dr: Dr. Neymar Cunningham MD Status: ADM IN Ordering Dr: Jacobo Moya DO Date: 07/25/24 Location: [facility] Sex: F C Admitted: 07/25/24 Test Reason : FALL Blood Pressure : */* mmHG Vent. Rate : 66 BPM Atrial Rate : 66 BPM P-R Int : 170 ms QRS Dur : 144 ms QT Int : 462 ms P-R-T Axes : 33 105 10 degrees QTcB Int : 484 ms Normal sinus rhythm Right bundle branch block Abnormal ECG No previous ECGs available Confirmed by KADEN CORCORAN MD ([id number]), tape editor SANDY BAUTISTA ([id number]) on 07/28/2024 5:37:03 AM Referred By: Confirmed By: KADEN CORCORAN MD 07/28/24 0537 Date Kaden Corcoran MD CC: Dr. Kam Ocampo Sr., DO; Dr. Jacobo Moya, DO; Dr. Neymar Cunningham MD Signed Normal [facility] Absolute lymphocyte countOrd ered By: Jacobo Moya on 07-25-2024 Lymphocytes Auto (Unsp spec) [#/Vol] 1.75 10*3/uL 0.83-4.51 [facility] Absolute neutrophil countOrd ered By: Jacobo Moya on 07-25-2024 Neutrophils (Bld) [#/Vol] 5.3 10*3/uL 2.0-7.7 [facility] Activated partial thrombopla stin time (aPTT) in platelet poor plasma by coagulation aOrdered By: Jacobo Moya on 07-25-2024 aPTT Coag (PPP) [Time] 27.1 s 24.1-36.2 [facility] Anion gap in Serum or Plasma Ordered By: Jacobo Moya on 07-25-2024 Anion gap [Moles/Vol] 9 mmol/L 5- [facility] Automated lymphocyte count a s percentage of total leukocytesOrdered By: Jacobo Moya on 07-25-2024 Lymphocytes/100 WBC Auto (Unsp spec) 22.9 % - [facility] BUN/creatinine ratioOrdered By: Jacobo Moya on 07-25-2024 Urea nitrogen/Creatinine [Mass ratio] 13.5 mg/mg - [facility] Basic Metabolic Profile (BMP )on 07-25-2024 BUN/CRE 13.5 RATIO Normal - [facility] Comment on above: Performed By: #### L 400.0001 #### [facility] Laboratory [address] [place], [address] Calcium [Mass/Vol] 8.8 mg/dL Normal 7.6-11.0 [facility] Comment on above: Performed By: #### L 400.0001 #### [facility] Laboratory [address] [place], [address] Chloride [Moles/Vol] 98 mmol/L Normal 98-108 [facility] Comment on above: Performed By: #### L 400.0001 #### [facility] Laboratory [address] [place], [address] CO2 [Moles/Vol] 26.5 mmol/L Normal 21.0-32.0 [facility] Comment on above: Performed By: #### L 400.0001 #### [facility] Laboratory [address] [place], [address] Creatinine [Mass/Vol] 0.92 mg/dL Normal 0.70-1.20 [facility] Comment on above: Performed By: #### L 400.0001 #### [facility] Laboratory [address] [place], [address] GAP 9 Normal 5-15 [facility] Comment on above: Performed By: #### L 400.0001 #### [facility] Laboratory [address] [place], [address] GFR/1.73 sq M.predicted among non-blacks MDRD (S/P/Bld) [Vol rate/Area] 60 mL/min/{1.73_m2} Normal >60 [facility] Comment on above: Result Comment: mL/m in/1.73m2 CKD-EPI Creatinine Equation (2020) Performed By: #### L 400.0001 #### [facility] Laboratory [address] [place], [address] Glucose [Mass/Vol] 126 mg/dL High 70-99 [facility] Comment on above: Performed By: #### L 400.0001 #### [facility] Laboratory [address] [place], [address] Potassium [Moles/Vol] 5.0 mmol/L Normal 3.3-5.1 [facility] Comment on above: Result Comment: Hemo lysis present, Results??could be affected. ?? Performed By: #### L 400.0001 #### [facility] [address] [place], [address] Sodium [Moles/Vol] 134 mmol/L Normal 133-145 [facility] Comment on above: Performed By: #### L 400.0001 #### [facility] [address] [place], [address] Urea nitrogen [Mass/Vol] 13 mg/dL Normal 4-19 [facility] Comment on above: Performed By: #### L 400.0001 #### [facility] [address] [place], [address] Basophil percentageOrdered B y: Jacobo Schwiger on 07-25-2024 Basophils/100 WBC (Bld) 0.4 % 0-1 [facility] Bilirubin Test strip Ql (U)O rdered By: Jacobo Moya on 07-25-2024 Bilirubin Ql (U) Negative Negative [facility] CBC W/Diff, Automatedon 07-10 Absolute Lymph 1.75 X10 3/uL Normal 0.83-4.51 [facility] Comment on above: Performed By: #### L 400.0001 #### [facility] [address] [place], [address] Absolute Neut 5.3 X10 3/uL Normal 2.0-7.7 [facility] Comment on above: Performed By: #### L 400.0001 #### [facility] [address] [place], [address] Basophils/100 WBC (Bld) 0.4 % Normal 0-1 [facility] Comment on above: Performed By: #### L 400.0001 #### [facility] [address] [place], [address] Eosinophils/100 WBC (Bld) 0.9 % Normal 0-5 [facility] Comment on above: Performed By: #### L 400.0001 #### [facility] [address] [place], [address] Erythrocyte distribution width (RBC) [Ratio] 14.1 % Normal 11.6-14.6 [facility] Comment on above: Performed By: #### L 400.0001 #### [facility] [address] [place], [address] Hematocrit (Bld) [Volume fraction] 31.6 % Low 37-47 [facility] Comment on above: Performed By: #### L 400.0001 #### [facility] [address] [place], [address] Hemoglobin (Bld) [Mass/Vol] 10.7 g/dL Low 12.0-15.0 [facility] Comment on above: Performed By: #### L 400.0001 #### [facility] [address] [place], [address] IG% 0.400 Normal 0.0-0.9 [facility] Comment on above: Result Comment: IG% - Immature Granulocytes (promyelocytes, myelocytes and metamyelocytes) > 1% indicates that a LEFT SHIFT is Present. Performed By: #### L 400.0001 #### [facility] [address] [place], [address] Lymphocytes/100 WBC (Bld) 22.9 % Normal 19-41 [facility] Comment on above: Performed By: #### L 400.0001 #### [facility] [address] [place], [address] MCH (RBC) [Entitic mass] 32.6 pg High 27.0-32.0 [facility] Comment on above: Performed By: #### L 400.0001 #### [facility] [address] [place], [address] MCHC (RBC) [Mass/Vol] 33.9 g/dL Normal 32-36 [facility] Comment on above: Performed By: #### L 400.0001 #### [facility] [address] [place], [address] MCV (RBC) [Entitic vol] 96.3 fL Normal 81-99 [facility] Comment on above: Performed By: #### L 400.0001 #### [facility] [address] [place], [address] Monocytes/100 WBC (Bld) 6.2 % Normal 0-10 [facility] Comment on above: Performed By: #### L 400.0001 #### [facility] [address] [place], [address] Neutrophils/100 WBC (Bld) 69.2 % Normal 47-70 [facility] Comment on above: Performed By: #### L 400.0001 #### [facility] [address] [place], [address] Nucleated RBC (Bld) [#/Vol] 0 10*3/uL Normal 0-5 [facility] Comment on above: Performed By: #### L 400.0001 #### [facility] [address] [place], [address] Platelet mean volume (Bld) [Entitic vol] 9.1 fL Normal 6.2-12.0 [facility] Comment on above: Performed By: #### L 400.0001 #### [facility] [address] [place], [address] Platelets (Bld) [#/Vol] 181 10*3/uL Normal 150-450 [facility] Comment on above: Performed By: #### L 400.0001 #### [facility] [address] [place], [address] RBC (Bld) [#/Vol] 3.28 10*6/uL Low 4.2-5.4 [facility] Comment on above: Performed By: #### L 400.0001 #### [facility] [address] [place], [address] RDW SD 49.4 fl High 35.1-43.9 [facility] Comment on above: Performed By: #### L 400.0001 #### [facility] [address] [place], [address] WBC (Bld) [#/Vol] 7.6 10*3/uL Normal 4.4-11.0 [facility] Comment on above: Performed By: #### L 400.0001 #### [facility] [address] [place], [address] Carbon dioxide, total [Moles /volume] in Central venous bloodOrdered By: Jacobo Moya on 07-25-2024 CO2 [Moles/Vol] 26.5 mmol/L 21.0-32.0 [facility] Chest 1 View (Portable)on Chest 1 View (Portable) [facility] Imaging Services [address] [place] [address] Chest 1 View (Portable) MR#: [id number] Acct: [id number] Name: KATHERINE JUDGE Rep #: [id number] : 1935 F 89 From: Spencer jaime MD PCP: Dr. Kam Ocampo Sr., DO Status: REG ER Study: Chest 1 View (Portable) Date of Exam: 07/25/24 Exam# [id number] Ordering Dr: Jacobo Moya DO PROCEDURE: CHEST [...] atelectasis at the lung bases. Reading Location: [place] [address] CC: Dr. Kam Ocmapo Sr., DO; Dr. Jacobo Moya, DO Remotely Piloted Vehicle Controller: Signed Normal [facility] Chloride assayOrdered By: Luis Angel Moya on 07-25-2024 Chloride [Moles/Vol] 98 mmol/L 98-108 [facility] Echo Completeon 07-25-2024 Echo Complete [facility] [address] [place] [address] Echo Complete 07/26/24 0824 MR#: [id number] Acct: [id number] Name: KATHERINE JUDGE Rep #: [id number] : 1935 89 From: Kaden Corcoran MD Attending Dr: Dr. Neymar Cunningham MD Status: ADM IN Ordering Dr: Hayden Diaz DO Date: 07/25/24 Location: [facility] Sex: F C Admitted: 07/25/24 Reason For Study Reason For Study: CHF Procedure This was a 2D Doppler, Color Flow transthoracic echocardiogram. Exam performed portable in patient room. Left Ventricle Normal LV size. Left ventricular systolic function is normal. The left ventricular ejection fraction is 70 %. Stage 1 diastolic dysfunction. No regional wall motion abnormalities noted. Right Ventricle Normal RV size. Normal systolic function. Atria Normal left atrium. Normal right atrium. Hypermobile atrial septum. Mitral Valve There is mild mitral annular calcification. Posterior leaflet mitral valve prolapse. Mild-Moderate (1-2+) anteriorly directed mitral valve insufficiency. Tricuspid Valve Mild focal thickening of the tricuspid valve, posterior leaflet. Moderate (2+) tricuspid valve insufficiency. Pulmonary artery systolic pressure is 65 mmHg. Moderate pulmonary hypertension. Aortic Valve Trisinus/trileaflet aortic valve. Mild focal aortic valve calcification. Pulmonic Valve Normal pulmonic valve. Great Vessels Mildly calcified aortic root. The pulmonary artery is normal size. Normal inferior vena cava. Pericardium/Pleural No pericardial effusion. Medication Performed a rapid injection of agitated mix of 9 cc saline and 1cc air to assess for atrial septal defect. MMode/2D Measurements Calculations LVIDd: 3.3 cm IVSd: 1.2 cm Ao root diam: 2.8 cm LVIDs: 1.8 cm LVPWd: 1.2 cm RVDd: 3.8 cm FS: 44.9 % LAV(MOD-bp): 55.0 ml LVAd ap4: 17.6 cm2 SV(MOD-sp4): 33.7 ml LAV(MOD-sp2): 44.5 ml LVLd ap4: 5.5 cm LAV(MOD-sp4): 69.7 ml EDV(MOD-sp4): 47.0 ml EDV(sp4-el): 47.7 ml LVAs ap4: 8.2 cm2 LVLs ap4: 4.1 cm ESV(MOD-sp4): 13.3 ml ESV(sp4-el): 13.8 ml EF(MOD-sp4): 71.8 % EF(sp4-el): 71.0 % SV(sp4-el): 33.9 ml LA A4 area: 22.4 cm2 LA dimension(2D): 3.0 cm RA A4 area: 13.4 cm2 TAPSE: 2.0 cm Time Measurements MV dec time: 0.31 sec Doppler Measurements Calculations MV E max tiffany: 61.4 cm/sec Lat Peak E' Tiffany: 6.6 cm/sec Med Peak E' Tiffany: 4.1 cm/sec MV A max tiffany: 102.8 cm/sec E/E' lat: 9.3 E/E' med: 14.9 MV E/A: 0.60 MV dec slope: 196.4 cm/sec2 Ao V2 max: 189.7 cm/sec LV V1 max: 109.1 cm/sec Ao max P.4 mmHg LV V1 max P.8 mmHg Ao V2 mean: 125.0 cm/sec Ao mean P.2 mmHg Ao V2 VTI: 41.2 cm PA V2 max: 121.8 cm/sec PI end-d tiffany: 126.4 cm/sec TR max tiffany: 389.7 cm/sec TR max P.7 mmHg ECHO/Echo Complete Interpretation Summary Hypermobile atrial septum. Normal LV size. Left ventricular systolic function is normal. The left ventricular ejection fraction is 70 %. Stage 1 diastolic dysfunction. Mild-Moderate (1-2+) anteriorly directed mitral valve insufficiency. Posterior leaflet mitral valve prolapse. Moderate pulmonary hypertension. Ordering Physician: Hayden Diaz Referring Physician: Kam Ocampo Performed By: Celeste Gore RDCS, RVT 07/26/24 1001 Date Kaden Corcoran MD CC: Dr. Hayden Diaz DO; Dr. Kam Ocampo Sr., ; Dr. 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 Kam Ocampo Sr., DO Status:ADM IN Location: [facility] [id number] HPI HPI - Fall History of Present Illness Chief Complaint: Fall Informant: patient Occured/Mechanism Occurred: Today Mechanism/Context: Yes same level fall Pain/Injury Location: Right hip Quality of Pain: Sharp Worsened by: Movement Relieved by: Rest Associated Symptoms Associated Symptoms: Positive for Inability to ambulate; Negative for Parasthesias, Weakness, Loss of function, Loss of consciousness or Amnesia Narrative Narrative: Patient presents with right hip pain that began after a fall today. Patient states she was reaching to open the door and she fell forward. Patient states she landed on her right hip. Patient states her pain is sharp. Patient states it is worse with movement. Patient states it is better with rest. Patient states she was unable to stand after the fall. Patient denies any head injury or loss of consciousness. Patient denies any other injuries. [facility] Medical History (Updated 07/25/24 @ 17:[address] Thanh Mclaughlin DO) Polyneuropathy PVD (peripheral vascular disease) Osteoporosis Hypothyroidism [...] (Updated 07/25/24 @ 14:[address] Jacobo Moya DO) History of cataract surgery History of lysis of adhesions Hx of hysterectomy Hx of total knee replacement Presence of aortocoronary bypass graft Social History Smoking Status: Former smoker ROS ROS ED Constitutional Constitutional ED: Denies chills or fever(s) Eyes Eyes: Denies blurry vision or change in vision ENT ENT ED: Reports rhinorrhea; Denies sore throat Cardiovascular Cardiovascular: Denies chest pain or palpitations Respiratory/Chest Respiratory/Chest: Denies cough or dyspnea Gastrointestinal Gastrointestinal: Denies nausea or vomiting Genitourinary Genitourinary ED: Denies dysuria or hematuria Musculoskeletal Musculoskeletal: Denies back pain or neck pain Integumentary Denies abscess or rash Neurologic Neurologic: Denies headache(s) or weakness Allergic/Immunologic Allergic/Immunologic ED: Denies mouth swelling or urticaria EXAM Physical Exam Const Vital Signs: 07/25/24 14:32 Temperature 98.1 F Temperature Source Oral Pulse Rate 84 Respiratory Rate 16 Blood Pressure 130/55 H Blood Pressure Mean 80 Pulse Ox 95 Oxygen Delivery Method Nasal Cannula Oxygen Flow Rate (L/min) 2 Positive well nourished and well developed General Appearance ED: well developed HEENT Reports normocephalic atraumatic Neck full ROM and supple Resp normal respiratory effort and clear to auscultation bilaterally Cardio regular rate and regular rhythm GI non-tender and non-distended Palpation: soft Extremity Extremity Narrative: There is tenderness over the right hip. There is shortening and external rotation of the right lower extremity. The (more content not included)... Normal [facility] Eosinophil percentageOrdered By: Jacobo Moya on 07-25-2024 Eosinophils/100 WBC (Bld) 0.9 % 0-5 [facility] Erythrocyte distribution wid th ratioOrdered By: Jacobogricelda Moya on 07-25-2024 Erythrocyte distribution width (RBC) [Ratio] 14.1 % 11.6-14.6 [facility] Erythrocyte distribution wid th standard deviationOrdered By: Jacobo Moya on 07-25-2024 Erythrocyte distribution width (RBC) [Ratio] 49.4 fl High 35.1-43.9 [facility] Femur Min 2 Viewson 07-26-19 25 Femur Min 2 Views [facility] Imaging Services [address] [place] [address] Femur Min 2 Views MR#: [id number] Acct: [id number] Name: KATHERINE JUDGE Wilber Rep #: [id number] : 1935 F 89 From: Jc Bland MD PCP: Dr. Kam Ocampo Sr., DO Status: ADM IN Study: Femur Min 2 Views Date of Exam: 07/25/24 Exam# [id number] Ordering Dr: Thanh Mclaughlin DO PROCEDURE: FEMUR MIN 2 VIEWS 07/25/2024 REASON FOR EXAM: FRACTURE SURGERY PLANNING TECHNIQUE: FEMUR MIN 2 VIEWS COMPARISON: 07/25/2024 radiograph. FINDINGS: Right knee arthroplasty. Nondisplaced intertrochanteric fracture of the right femur. Degenerative changes of the right hip. RAD/Femur Min 2 Views IMPRESSION: Nondisplaced intertrochanteric fracture. Reading Location: [id number] CC: Dr. Kam Ocampo Sr., DO; Dr. Thanh Mclaughlin DO Remotely Piloted Vehicle Controller: Signed Normal [facility] Glomerular filtration rate ( GFR) estimation/1.73 sq m using serum, plasma, or whole bOrdered By: Jacobo Moya on 07-25-2024 GFR/1.73 sq M.predicted among non-blacks MDRD (S/P/Bld) [Vol rate/Area] 60 mL/min/{1.73_m2} >60 [facility] Comment on above: mL/min/1.73m2 CKD-EP I Creatinine Equation (2020) H AND P Exam - [facility] 07-25-2024 H&P Exam - Hospitalist [facility] Medical Records Department [address] [place] [address] H P Exam - Hospitalist 07/25/24 1651 MR#: [id number] Acct: [id number] Name: KATHERINE JUDGE Rep #: [id number] : 1935 89 From: Hayden Diaz DO PCP: Dr. Kam Ocampo Sr., Status:ADM IN Location: [facility] [id number] HPI - General General Date of Admission: 07/25/24 Date of Service: 07/25/24 Chief Complaint: Fall with right hip pain HPI Narrative KATHERINE JUDGE, is a 89 F who presented to [facility] ED on 07/25/2024 with right hip pain after a fall. Patient has history of chronic debility, lives at the [facility]. She had a fall today where she was reaching for her to open the door, fell forward and landed on her right hip. In the ED x-ray confirmed a nondisplaced intertrochanteric fracture. Case was discussed with Dr. Mclaughlin with orthopedics who planning for surgery tomorrow afternoon pending medical evaluation. Hospitalist was then contacted for admission. I saw the patient at bedside in the ED. Patient was fatigued appearing but otherwise laying back fairly comfortably in bed in no acute distress. She was alert and oriented x 3 for me. She stated that the pain medication had only been somewhat helpful for her. If she did not move her pain was controlled, but she did report moderate to severe pain with any movement. She denies any other acute concerns currently. Will be admitted for further management. [facility] Medical History (Updated 07/25/24 @ 22:[address] Hayden Diaz, DO) Polyneuropathy PVD (peripheral vascular disease) Osteoporosis Hypothyroidism GERD (gastroesophageal reflux disease) Hypertensive heart and chronic kidney disease stage 3 Anxiety Asthma Sleep apnea COPD (chronic obstructive pulmonary disease) Gout CKD (chronic kidney disease) stage 3, GFR 30-59 ml/min Major depressive disorder CHF (congestive heart failure) Home Medications ???Medication ???Instructions ???Recorded ???Last Taken ???Type acetaminophen 500 mg tablet 500 mg PO BID [ain 07/25/24 Unknow n History atorvastatin 40 mg tablet 40 mg PO DAILY hyperlipidemia 07/10 08/03 Unknown History azelastine 137 mcg (0.1 %) nasal intranasal allergies 07/25/24 Unkn own History spray budesonide 0.5 mg/2 mL suspension mg surgical endoscopist 07/25/24 Unknown History for nebulization bupropion HCl 150 mg 24 hr tablet, 150 mg PO DAILY . 07/25/24 Unkno wn History extended release calcium carbonate PO . 07/25/24 Unknown History cetirizine 5 mg tablet 5 mg PO DAILY . 07/25/24 Unknown H istory clopidogrel 75 mg tablet 75 mg PO DAILY . 07/25/24 Unknown History dicyclomine 10 mg capsule 10 mg PO TID . 07/25/24 Unknown Hi story doxazosin 2 mg tablet 2 mg PO DAILY . 07/25/24 Unknown H istory furosemide 20 mg tablet 20 mg PO DAILY . 07/25/24 Unknown History gabapentin 100 mg capsule PO . 07/25/24 Unknown History ipratropium 0.5 mg-albuterol 3 mg ml . 07/25/24 Unknown History (2.5 mg base)/3 mL nebulization soln isosorbide mononitrate 30 mg 30 mg PO DAILY . 07/25/24 Unknown History tablet,extended release 24 hr metoprolol tartrate 25 mg tablet 25 mg PO BID . 07/25/24 Unknown Hi story mirtazapine 30 mg tablet 30 mg PO QHS . 07/25/24 Unknown Hi story montelukast 10 mg tablet 10 mg PO DAILY . 07/25/24 Unknown History multivitamin with folic acid 400 1 tab PO DAILY . 07/25/24 Unknown History mcg tablet (Daily-Carmelo (with folic acid)) pantoprazole 40 mg tablet,delayed 40 mg PO DAILY . 07/25/24 Unknown History release potassium chloride 20 mEq 20 meq PO DAILY . 07/25/24 Unknown History tablet,extended release(part/cryst) sennosides 8.6 mg-docusate sodium 1 tab PO DAILY . 07/25/24 Unknown History 50 mg tablet (Senexon-S) Allergy/AdvReac Type Severity Reaction Status Date / [...] OF REACTION rofecoxib Allergy PT UNSURE Verified (more content not included)... Normal [facility] HIP, UNI W/ Pelvis 2-3 Views on 07-25-2024 HIP, UNI W/ Pelvis 2-3 Views [facility] Imaging Services [address] [place] [address] HIP, UNI W/ Pelvis 2-3 Views MR#: [id number] Acct: [id number] Name: KATHERINE JUDGE Wilber Rep #: [id number] : 1935 F 89 From: Spencer jaime MD PCP: Dr. Kam Ocampo Sr., DO Status: REG ER Study: HIP, UNI W/ Pelvis 2-3 Views Date of Exam: Exam# [id number] Ordering Dr: Jacobo Moya DO PROCEDURE: HIP, [...] of the proximal right femur. Reading Location: [place] [address] CC: Dr. Kam Ocampo Sr., ; Dr. 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: Signed Normal [facility] Hematocrit Auto (Bld) [Volum e fraction]Ordered By: Jacobo Moya on 07-25-2024 Hematocrit (Bld) [Volume fraction] 31.6 % Low 37-47 [facility] Hemoglobin measurementOrdere d By: Jacobo Moya on 07-25-2024 Hemoglobin (Bld) [Mass/Vol] 10.7 g/dL Low 12.0-15.0 [facility] Immature granulocytes/100 WB C Auto (Bld)Ordered By: Jacobo Moya on 07-25-2024 Immature granulocytes/100 WBC (Bld) 0.400 % 0.0-0.9 [facility] Comment on above: IG% - Immature Granu locytes (promyelocytes, myelocytes and metamyelocytes) > 1% indicates that a LEFT SHIFT is Present. International normalized rat io (INR) calculationOrdered By: Jacobo Moya on 07-25-2024 INR Coag (Bld) [Relative time] 1.0 {INR} [facility] Ketones Test strip Ql (U)Ord ered By: Jacobo Moya on 07-25-2024 Ketones Ql (U) Negative Negative [facility] L501.4021on 07-25-2024 Trop T High Sen 24 ng/L High <=14 [facility] Comment on above: Performed By: #### L 100.0100, L500.2500 #### [facility] [address] [place], [address] L503.7505on 07-25-2024 Natriuretic peptide B (Bld) [Mass/Vol] 538 pg/mL Normal <=1800 [facility] Comment on above: Result Comment: Hear t Failure Unlikely: < 300 pg/mL Heart Failure Likely < 50 Years: > 450 pg/mL 50-75 Years: > 900 pg/mL >75 Years: > 1800 pg/mL Performed By: #### L 100.0100, L500.2500 #### [facility] [address], [place], [address] MCV (mean corpuscular volume ) determinationOrdered By: Jacobo Moya on 07-25-2024 MCV (RBC) [Entitic vol] 96.3 fL 81-99 [facility] Mean corpuscular hemoglobin (MCH) determinationOrdered By: Jacobo Moya on 07-25-2024 MCH (RBC) [Entitic mass] 32.6 pg High 27.0-32.0 [facility] Mean corpuscular hemoglobin concentration (MCHC) determinationOrdered By: Jacobo oMya on 07-25-2024 MCHC (RBC) [Mass/Vol] 33.9 g/dL 32-36 [facility] Mean platelet volume determi nationOrdered By: Jacobo Moya on 07-25-2024 Platelet mean volume (Bld) [Entitic vol] 9.1 fL 6.2-12.0 [facility] Microscopic analysis of urin e for red blood cells (RBC)Ordered By: Jacobo Moya on 07-25-2024 Microscopic analysis of urine for red blood cells (RBC) 0-5 SEEN /hpf 0-5 [facility] Monocyte percentageOrdered B y: Jacobo Moya on 07-25-2024 Monocytes/100 WBC (Bld) 6.2 % 0-10 [facility] Mucus LM Ql (Urine sed)Order ed By: Jacobo Moya on 07-25-2024 Mucus Ql (Urine sed) 0 SEEN /hpf [facility] Natriuretic peptide.B prohor ana N-Terminal [Mass/volume] in Serum or PlasmaOrdered By: Hayden Diaz on 07-25-2024 Natriuretic peptide.B prohormone N-Terminal [Mass/Vol] 538 pg/mL <1800 [facility] Comment on above: Heart Failure Unlike ly: < 300 pg/mLHeart Failure Likely< 50 Years: > 450 pg/mL50-75 Years: > 900 pg/mL>75 Years: > 1800 pg/mL Neutrophil percentageOrdered By: Jacobo Moya on 07-25-2024 Neutrophils/100 WBC (Bld) 69.2 % 47-70 [facility] Nitrite Test strip Ql (U)Ord ered By: Jacobo Moya on 07-25-2024 Nitrite Ql (U) Negative Negative [facility] Nucleated red blood cell per centageOrdered By: Jacobo Moya on 07-25-2024 Nucleated RBC/100 WBC (Bld) [Ratio] 0 % 0-5 [facility] Partial Thromboplast Timeon 07-25-2024 aPTT Coag (Bld) [Time] 27.1 s Normal 24.1-36.2 [facility] Comment on above: Performed By: #### L 400.0001 #### [facility] Laboratory [address] [place], [address] Platelet countOrdered By: Luis Angel Moya on 07-25-2024 Platelets (Bld) [#/Vol] 181 10*3/uL 150-450 [facility] Potassium measurement (mass/ volume)Ordered By: Jacobo Moya on 07-25-2024 Potassium (Unsp spec) [Mass/Vol] 5.0 mmol/L 3.3-5.1 [facility] Comment on above: Hemolysis present, R esults could be affected. Protein Test strip Ql (U)Ord ered By: Jacobo Moya on 07-25-2024 Protein Ql (U) 30 mg/dl High Negative [facility] Prothrombin Time w/INRon INR Coag (PPP) [Relative time] 1.0 {INR} Normal [facility] Comment on above: Performed By: #### L [id number] #### [facility] Laboratory [address] [place], [place], [id number] PT Coag (PPP) [Time] 13.0 s Normal 11.7-14.9 [facility] Comment on above: Performed By: #### L [id number] #### [facility] Laboratory [address] [place], [place], [id number] Prothrombin timeOrdered By: Jacobo Moya on 07-25-2024 PT Coag (PPP) [Time] 13.0 s 11.7-14.9 [facility] RBC Auto (Bld) [#/Vol]Ordere d By: Jacobo Moya on 07-25-2024 RBC (Bld) [#/Vol] 3.28 10*6/uL Low 4.2-5.4 [facility] Serum creatinine measurement (mass/volume)Ordered By: Jacobo Moya on 07-25-2024 Creatinine [Mass/Vol] 0.92 mg/dL 0.70-1.20 [facility] Serum glucose measurement (m ass/volume)Ordered By: Jacobo Moya on 07-25-2024 Glucose [Mass/Vol] 126 mg/dL High 70-99 [facility] Serum or plasma calcium светлана urement (mass/volume)Ordered By: Jacobo Moya on 07-25-2024 Calcium [Mass/Vol] 8.8 mg/dL 7.6-11.0 [facility] Serum or plasma urea nitroge n measurement (mass/volume)Ordered By: Jacobo Moya on 07-25-2024 Urea nitrogen [Mass/Vol] 13 mg/dL 4-19 [facility] Sodium levelOrdered By: Jacobo Moya on 07-25-2024 Sodium [Moles/Vol] 134 mmol/L 133-145 [facility] Squamous epithelial cells de tection in urine sediment by light microscopyOrdered By: Jacobo Moya on 07-25-2024 Epithelial cells.squamous LM Ql (Urine sed) 0-5 SEEN /hpf 5-10 [facility] Transitional cells detection in urine sediment by light microscopyOrdered By: Jacobo Moya on 07-25-2024 Transitional cells LM Ql (Urine sed) 0-5 SEEN /hpf 0-5 [facility] Troponin T.cardiac [Mass/vol ume] in Serum or Plasma by High sensitivity methodOrdered By: Hayden Diaz on 07-25-2024 Troponin T.cardiac High sensitivity method [Mass/Vol] 24 ng/L High <14 [facility] Urinalysis, Completeon 07-25 EPI,SQUAMOUS 0-5 SEEN Normal 5-10 [facility] Comment on above: Order Comment: CLEAN CATCH Performed By: #### L [id number] #### [facility] Laboratory [address] [place], [address] EPI,TRANSITION 0-5 SEEN Normal 0-5 [facility] Comment on above: Order Comment: CLEAN CATCH Performed By: #### L [id number] #### [facility] Laboratory [address] [place], [address] RBC 0-5 SEEN Normal 0-5 [facility] Comment on above: Order Comment: CLEAN CATCH Performed By: #### L [id number] #### [facility] [address] [place], [address] WBC 0-5 SEEN Normal 0-5 [facility] Comment on above: Order Comment: CLEAN CATCH Performed By: #### L [id number] #### [facility] Laboratory [address] [place], [address] BACTERIA 0 SEEN Normal None Seen [facility] Comment on above: Order Comment: CLEAN CATCH Performed By: #### L [id number] #### [facility] [address] [place], [address] Mucus Ql (Urine sed) 0 SEEN Normal [facility] Comment on above: Order Comment: CLEAN CATCH Performed By: #### L [id number] #### [facility] [address] [place], [address] Urine clarityOrdered By: Geovanna Moya on 07-25-2024 Clarity (U) Clear Clear [facility] Urine color determinationOrd ered By: Jacobo Moya on 07-25-2024 Color (U) Straw Yellow [facility] Urine glucose detectionOrder ed By: Jacobo Moya on 07-25-2024 Glucose Ql (U) Normal mg/dl Normal [facility] Urine leukocyte esterase det ection by dipstickOrdered By: Jacobo Moya on 07-25-2024 Leukocyte esterase Test strip Ql (U) Negative Negative [facility] Urine pHOrdered By: Jacobo dnuham on 07-25-2024 pH (U) 8.0 [pH] 5.0 - 8.0 [facility] Urine sediment bacteria coun t by microscopy (number/high power field)Ordered By: Jacobo Moya on 07-25-2024 Bacteria LM.HPF (Urine sed) [#/Area] 0 /[HPF] None Seen [facility] Urine specific gravity measu rementOrdered By: Jacobo Moya on 07-25-2024 Specific gravity (U) [Rel density] 1.010 1.002-1.03 0 [facility] Urine urobilinogen measureme ntOrdered By: Jacobo Moya on 07-25-2024 Urobilinogen Ql (U) Normal mg/dl Normal [facility] White blood cell (WBC) count Ordered By: Jacobo Moya on 07-25-2024 WBC (Bld) [#/Vol] 7.6 10*3/uL 4.4-11.0 [facility] White blood cell countOrdere d By: Jacobo Moya on 07-25-2024 White blood cell count 0-5 SEEN /hpf 0-5 [facility] Anion gap in Serum or Plasma Ordered By: Kam Ocampo on 04-14-2024 Anion gap [Moles/Vol] 10 mmol/L 5-15 [facility] BUN/creatinine ratioOrdered By: Kam Ocampo on 04-14-2024 Urea nitrogen/Creatinine [Mass ratio] 12.4 mg/mg 10-20 [facility] Bilirubin, totalOrdered By: Kam Ocampo on 04-14-2024 Bilirubin [Mass/Vol] 0.38 mg/dL 0.00-1.30 [facility] CBC-Complete Blood Cnt No Di ffon 04-14-2024 Erythrocyte distribution width (RBC) [Ratio] 13.7 % Normal 11.6-14.6 [facility] Comment on above: Order Comment: 301.2 Performed By: #### L [id number], L100.0500 #### [facility] Laboratory [address] [place], [address] Hematocrit (Bld) [Volume fraction] 30.3 % Low 37-47 [facility] Comment on above: Order Comment: 301.2 Performed By: #### L [id number], L100.0500 #### [facility] Laboratory [address] [place], [address] Hemoglobin (Bld) [Mass/Vol] 10.2 g/dL Low 12.0-15.0 [facility] Comment on above: Order Comment: 301.2 Performed By: #### L [id number], L100.0500 #### [facility] Laboratory [address] [place], [address] MCH (RBC) [Entitic mass] 32.4 pg High 27.0-32.0 [facility] Comment on above: Order Comment: 301.2 Performed By: #### L [id number], L100.0500 #### [facility] Laboratory [address] [place], [address] MCHC (RBC) [Mass/Vol] 33.7 g/dL Normal 32-36 [facility] Comment on above: Order Comment: 301.2 Performed By: #### L [id number], L100.0500 #### [facility] Laboratory [address] [place], [address] MCV (RBC) [Entitic vol] 96.2 fL Normal 81-99 [facility] Comment on above: Order Comment: 301.2 Performed By: #### L [id number], L100.0500 #### [facility] Laboratory [address] [place], [address] Platelet mean volume (Bld) [Entitic vol] 9.3 fL Normal 6.2-12.0 [facility] Comment on above: Order Comment: 301.2 Performed By: #### L [id number], L100.0500 #### [facility] Laboratory [address] [place], [address] Platelets (Bld) [#/Vol] 170 10*3/uL Normal 150-450 [facility] Comment on above: Order Comment: 301.2 Performed By: #### L [id number], L100.0500 #### [facility] Laboratory [address] [place], [address] RBC (Bld) [#/Vol] 3.15 10*6/uL Low 4.2-5.4 [facility] Comment on above: Order Comment: 301.2 Performed By: #### L [id number], L100.0500 #### [facility] Laboratory [address] [place], [address] RDW SD 48.8 fl High 35.1-43.9 [facility] Comment on above: Order Comment: 301.2 Performed By: #### L [id number], L100.0500 #### [facility] [address] [place], [address] WBC (Bld) [#/Vol] 4.5 10*3/uL Normal 4.4-11.0 [facility] Comment on above: Order Comment: 301.2 Performed By: #### L [id number], L100.0500 #### [facility] [address] [place], [address] Carbon dioxide, total [Moles /volume] in Central venous bloodOrdered By: Kam Ocampo on 04-14-2024 CO2 [Moles/Vol] 24.5 mmol/L 21.0-32.0 [facility] Chloride assayOrdered By: Dugan on 04-14-2024 Chloride [Moles/Vol] 102 mmol/L 98-108 [facility] Comprehensive Metabolic Prof ilon 04-14-2024 Albumin [Mass/Vol] 3.2 g/dL Low 3.4-4.8 [facility] Comment on above: Order Comment: 301.2 Performed By: #### L [id number], L100.0500 #### [facility] Laboratory [address] [place], [address] Albumin/Globulin [Mass ratio] 1.2 {ratio} Normal 0.9-2.4 [facility] Comment on above: Order Comment: 301.2 Performed By: #### L [id number], L100.0500 #### [facility] Laboratory [address] [place], [address] ALK PHOS 53 U/L Normal 35-104 [facility] Comment on above: Order Comment: 301.2 Performed By: #### L [id number], L100.0500 #### [facility] Laboratory [address] [place], [address] ALT [Catalytic activity/Vol] 14 U/L Normal <=34 [facility] Comment on above: Order Comment: 301.2 Performed By: #### L [id number], L100.0500 #### [facility] Laboratory [address] [place], [address] AST [Catalytic activity/Vol] 21 U/L Normal <=31 [facility] Comment on above: Order Comment: 301.2 Performed By: #### L [id number], L100.0500 #### [facility] Laboratory [address] [place], [address] Bilirubin [Mass/Vol] 0.38 mg/dL Normal 0.00-1.30 [facility] Comment on above: Order Comment: 301.2 Performed By: #### L [id number], L100.0500 #### [facility] Laboratory [address] [place], [address] BUN/CRE 12.4 RATIO Normal 10-20 [facility] Comment on above: Order Comment: 301.2 Performed By: #### L [id number], L100.0500 #### [facility] Laboratory [address] [place], [address] Calcium [Mass/Vol] 9.0 mg/dL Normal 7.6-11.0 [facility] Comment on above: Order Comment: 301.2 Performed By: #### L [id number], L100.0500 #### [facility] Laboratory [address] [place], [address] Chloride [Moles/Vol] 102 mmol/L Normal 98-108 [facility] Comment on above: Order Comment: 301.2 Performed By: #### L [id number], L100.0500 #### [facility] Laboratory [address] [place], [address] CO2 [Moles/Vol] 24.5 mmol/L Normal 21.0-32.0 [facility] Comment on above: Order Comment: 301.2 Performed By: #### L [id number], L100.0500 #### [facility] Laboratory [address] [place], [address] Creatinine [Mass/Vol] 0.90 mg/dL Normal 0.70-1.20 [facility] Comment on above: Order Comment: 301.2 Performed By: #### L [id number], L100.0500 #### [facility] Laboratory [address] [place], [address] GAP 10 Normal 5-15 [facility] Comment on above: Order Comment: 301.2 Performed By: #### L [id number], L100.0500 #### [facility] Laboratory [address] [place], [address] GFR/1.73 sq M.predicted among non-blacks MDRD (S/P/Bld) [Vol rate/Area] 61 mL/min/{1.73_m2} Normal >60 [facility] Comment on above: Order Comment: 301.2 Result Comment: mL/m in/1.73m2 CKD-EPI Creatinine Equation (2020) Performed By: #### L [id number], L100.0500 #### [facility] Laboratory [address] [place], [address] Globulin (S) [Mass/Vol] 2.7 g/dL Normal 2.2-4.2 [facility] Comment on above: Order Comment: 301.2 Performed By: #### L [id number], L100.0500 #### [facility] Laboratory [address] [place], [address] Glucose [Mass/Vol] 80 mg/dL Normal 70-99 [facility] Comment on above: Order Comment: 301.2 Performed By: #### L [id number], L100.0500 #### [facility] Laboratory [address] [place], [address] Potassium [Moles/Vol] 4.3 mmol/L Normal 3.3-5.1 [facility] Comment on above: Order Comment: 301.2 Performed By: #### L [id number], L100.0500 #### [facility] Laboratory [address] [place], [address] Sodium [Moles/Vol] 137 mmol/L Normal 133-145 [facility] Comment on above: Order Comment: 301.2 Performed By: #### L [id number], L100.0500 #### [facility] Laboratory [address] [place], [address] T PROT 5.9 g/dL Normal 5.9-8.4 [facility] Comment on above: Order Comment: 301.2 Performed By: #### L [id number], L100.0500 #### [facility] Laboratory [address] [place], [place], [id number] Urea nitrogen [Mass/Vol] 11 mg/dL Normal 4-19 [facility] Comment on above: Order Comment: 301.2 Performed By: #### L [id number], L100.0500 #### [facility] Laboratory [address] [place], [place], [id number] Erythrocyte distribution wid th (RBC) [Ratio]Ordered By: Kam Ocampo on 04-14-2024 Erythrocyte distribution width (RBC) [Entitic vol] 48.8 fL High 35.1-43.9 [facility] Erythrocyte distribution wid th ratioOrdered By: Kam Ocampo on 04-14-2024 Erythrocyte distribution width (RBC) [Ratio] 13.7 % 11.6-14.6 [facility] GFR/1.73 sq M.predicted leif g non-blacks MDRD (S/P/Bld) [Vol rate/Area]Ordered By: Kam Ocampo on 04-14-2024 Estimated GFR (MDRD) Non-Af Amer 61 >60 [facility] Comment on above: mL/min/1.73m2 CKD-EP I Creatinine Equation (2020) Hematocrit Auto (Bld) [Volum e fraction]Ordered By: Kam Ocampo on 04-14-2024 Hematocrit (Bld) [Volume fraction] 30.3 % Low 37-47 [facility] Hemoglobin measurementOrdere d By: Kam Ocampo on 04-14-2024 Hemoglobin (Bld) [Mass/Vol] 10.2 g/dL Low 12.0-15.0 [facility] Laboratory - Chemistry and C hemistry - challengeOrdered By: Kam Ocampo on 04-14-2024 AST [Catalytic activity/Vol] 21 U/L <32 [facility] MCV (mean corpuscular volume ) determinationOrdered By: Kam Ocampo on 04-14-2024 MCV (RBC) [Entitic vol] 96.2 fL 81-99 [facility] Mean corpuscular hemoglobin (MCH) determinationOrdered By: Kam Ocampo on 04-14-2024 MCH (RBC) [Entitic mass] 32.4 pg High 27.0-32.0 [facility] Mean corpuscular hemoglobin concentration (MCHC) determinationOrdered By: Kam Ocampo on 04-14-2024 MCHC (RBC) [Mass/Vol] 33.7 g/dL 32-36 [facility] Mean platelet volume determi nationOrdered By: Kam Ocampo on 04-14-2024 Platelet mean volume (Bld) [Entitic vol] 9.3 fL 6.2-12.0 [facility] Platelet countOrdered By: Dugan on 04-14-2024 Platelets (Bld) [#/Vol] 170 10*3/uL 150-450 [facility] Potassium (Unsp spec) [Mass/ Vol]Ordered By: Kam Ocampo on 04-14-2024 Potassium [Moles/Vol] 4.3 mmol/L 3.3-5.1 [facility] RBC Auto (Bld) [#/Vol]Ordere d By: Kam Ocampo on 04-14-2024 RBC (Bld) [#/Vol] 3.15 10*6/uL Low 4.2-5.4 [facility] Serum creatinine measurement (mass/volume)Ordered By: Kam Ocampo on 04-14-2024 Creatinine [Mass/Vol] 0.90 mg/dL 0.70-1.20 [facility] Serum globulin measurementOr dered By: Kam Ocampo on 04-14-2024 Globulin (S) [Mass/Vol] 2.7 g/dL 2.2-4.2 [facility] Serum glucose measurement (m ass/volume)Ordered By: Kam Ocampo on 04-14-2024 Glucose [Mass/Vol] 80 mg/dL 70-99 [facility] Serum or plasma alanine browne otransferase (ALT) measurementOrdered By: Kam Ocampo on 04-14-2024 ALT [Catalytic activity/Vol] 14 U/L <35 [facility] Serum or plasma albumin светлана urement (mass/volume)Ordered By: Kam Ocampo on 04-14-2024 Albumin [Mass/Vol] 3.2 g/dL Low 3.4-4.8 [facility] Serum or plasma albumin/glob ulin mass ratioOrdered By: Kam Ocampo on 04-14-2024 Albumin/Globulin [Mass ratio] 1.2 {ratio} 0.9-2.4 [facility] Serum or plasma alkaline noy sphatase measurementOrdered By: Kam Ocampo on 04-14-2024 ALP [Catalytic activity/Vol] 53 U/L 35-104 [facility] Serum or plasma calcium светлана urement (mass/volume)Ordered By: Kam Ocampo on 04-14-2024 Calcium [Mass/Vol] 9.0 mg/dL 7.6-11.0 [facility] Serum or plasma urea nitroge n measurement (mass/volume)Ordered By: Kam Ocampo on 04-14-2024 Urea nitrogen [Mass/Vol] 11 mg/dL 4-19 [facility] Sodium levelOrdered By: Kam Ocampo on 04-14-2024 Sodium [Moles/Vol] 137 mmol/L 133-145 [facility] Total proteinOrdered By: Aline Ocampo on 04-14-2024 Protein [Mass/Vol] 5.9 g/dL 5.9-8.4 [facility] White blood cell (WBC) count Ordered By: Kam Ocampo on 04-14-2024 WBC (Bld) [#/Vol] 4.5 10*3/uL 4.4-11.0 [facility] Absolute neutrophil countOrd ered By: Kam Ocampo on 02-09-2024 Neutrophils (Bld) [#/Vol] 3.2 10*3/uL 2.0-7.7 [facility] Basic Metabolic Profile (BMP )on 02-09-2024 BUN/CRE 18.4 RATIO Normal 10-20 [facility] Comment on above: Order Comment: 301.2 Performed By: #### L 500.4050, L100.0500 #### [facility] Laboratory [address] [place] [address], [address] CA,Total 9.0 mg/dL Normal 8.5-10.1 [facility] Comment on above: Order Comment: 301.2 Performed By: #### L [id number], L100.0500 #### [facility] Laboratory [address] [place], [address] Chloride [Moles/Vol] 105 mmol/L Normal 98-107 [facility] Comment on above: Order Comment: 301.2 Performed By: #### L [id number], L100.0500 #### [facility] [address] [place], [address] CO2 [Moles/Vol] 28.0 mmol/L Normal 21.0-32.0 [facility] Comment on above: Order Comment: 301.2 Performed By: #### L 500.4050, L100.0500 #### [facility] [address] [place], [address] Creatinine [Mass/Vol] 0.98 mg/dL Normal 0.55-1.02 [facility] Comment on above: Order Comment: 301.2 Result Comment: The validity of the calculated GFR GFRAA in patients over 70 years has not been determined. Clinical correlation is essential. Performed By: #### L 500.4050, L100.0500 #### [facility] [address] [place], [address] EST GFR - AA 69 mL/min Normal >60 [facility] Comment on above: Order Comment: 301.2 Result Comment: Afri can [place] GFR Calc Performed By: #### L 500.4050, L100.0500 #### [facility] [address] [place], [address] GAP 5 Normal 5-15 [facility] Comment on above: Order Comment: 301.2 Performed By: #### L 500.4050, L100.0500 #### [facility] [address] [place], [address] GFR/1.73 sq M.predicted among non-blacks MDRD (S/P/Bld) [Vol rate/Area] 57 mL/min/{1.73_m2} Low >60 [facility] Comment on above: Order Comment: 301.2 Result Comment: Non- GFR Calc Performed By: #### L 500.4050, L100.0500 #### [facility] [address] [place], [address] Glucose [Mass/Vol] 88 mg/dL Normal 74-106 [facility] Comment on above: Order Comment: 301.2 Performed By: #### L 500.4050, L100.0500 #### [facility] [address] [place], [address] Potassium [Moles/Vol] 4.2 mmol/L Normal 3.5-5.1 [facility] Comment on above: Order Comment: 301.2 Performed By: #### L 500.4050, L100.0500 #### [facility] [address] [place], [address] Sodium [Moles/Vol] 138 mmol/L Normal 136-145 [facility] Comment on above: Order Comment: 301.2 Performed By: #### L 500.4050, L100.0500 #### [facility] [address] [place], [address] Urea nitrogen [Mass/Vol] 18 mg/dL Normal 7-18 [facility] Comment on above: Order Comment: 301.2 Performed By: #### L 500.4050, L100.0500 #### [facility] [address] [place], [address] Basophil percentageOrdered B y: Kam Ocampo on 02-09-2024 Basophils/100 WBC (Bld) 0.2 % 0-1 [facility] Blood urea nitrogen (BUN)/cr eatinine ratioOrdered By: Kam Ocampo on 02-09-2024 Urea nitrogen/Creatinine [Mass ratio] 18.4 mg/mg 10-20 [facility] CBC W/Diff, Automatedon 12-3 Absolute Lymph 1.89 X10 3/uL Normal 0.83-4.51 [facility] Comment on above: Order Comment: 301.2 Performed By: #### L 500.4050, L100.0500 #### [facility] Laboratory [address] [place], [address] Absolute Neut 3.2 X10 3/uL Normal 2.0-7.7 [facility] Comment on above: Order Comment: 301.2 Performed By: #### L 500.4050, L100.0500 #### [facility] Laboratory [address] [place], [address] Basophils/100 WBC (Bld) 0.2 % Normal 0-1 [facility] Comment on above: Order Comment: 301.2 Performed By: #### L 500.4050, L100.0500 #### [facility] Laboratory [address] [place], [address] Eosinophils/100 WBC (Bld) 0.2 % Normal 0-5 [facility] Comment on above: Order Comment: 301.2 Performed By: #### L 500.4050, L100.0500 #### [facility] Laboratory [address] [place], [address] Erythrocyte distribution width (RBC) [Ratio] 13.9 % Normal 11.6-14.6 [facility] Comment on above: Order Comment: 301.2 Performed By: #### L 500.4050, L100.0500 #### [facility] Laboratory [address] [place], [address] Hematocrit (Bld) [Volume fraction] 30.0 % Low 37-47 [facility] Comment on above: Order Comment: 301.2 Performed By: #### L [id number], L100.0500 #### [facility] Laboratory [address] [place], [address] Hemoglobin (Bld) [Mass/Vol] 10.0 g/dL Low 12.0-15.0 [facility] Comment on above: Order Comment: 301.2 Performed By: #### L 500.4050, L100.0500 #### [facility] [address] [place], [address] IG% 0.400 Normal 0.0-0.9 [facility] Comment on above: Order Comment: 301.2 Result Comment: IG% - Immature Granulocytes (promyelocytes, myelocytes and metamyelocytes) > 1% indicates that a LEFT SHIFT is Present. Performed By: #### L 500.4050, L100.0500 #### [facility] [address], [address] Lymphocytes/100 WBC (Bld) 33.9 % Normal 19-41 [facility] Comment on above: Order Comment: 301.2 Performed By: #### L 500.4050, L100.0500 #### [facility] [address] [place], [address] MCH (RBC) [Entitic mass] 32.3 pg High 27.0-32.0 [facility] Comment on above: Order Comment: 301.2 Performed By: #### L 500.4050, L100.0500 #### [facility] [address] [place], [address] MCHC (RBC) [Mass/Vol] 33.3 g/dL Normal 32-36 [facility] Comment on above: Order Comment: 301.2 Performed By: #### L 500.4050, L100.0500 #### [facility] [address] [place], [address] MCV (RBC) [Entitic vol] 96.8 fL Normal 81-99 [facility] Comment on above: Order Comment: 301.2 Performed By: #### L 500.4050, L100.0500 #### [facility] [address] [place], [address] Monocytes/100 WBC (Bld) 8.8 % Normal 0-10 [facility] Comment on above: Order Comment: 301.2 Performed By: #### L 500.4050, L100.0500 #### [facility] [address] [place], [address] Neutrophils/100 WBC (Bld) 56.5 % Normal 47-70 [facility] Comment on above: Order Comment: 301.2 Performed By: #### L 500.4050, L100.0500 #### [facility] [address] [place], [address] Nucleated RBC (Bld) [#/Vol] 0 10*3/uL Normal 0-5 [facility] Comment on above: Order Comment: 301.2 Performed By: #### L 500.4050, L100.0500 #### [facility] [address] [place], [address] Platelet mean volume (Bld) [Entitic vol] 9.5 fL Normal 6.2-12.0 [facility] Comment on above: Order Comment: 301.2 Performed By: #### L 500.4050, L100.0500 #### [facility] [address] [place], [address] Platelets (Bld) [#/Vol] 181 10*3/uL Normal 150-450 [facility] Comment on above: Order Comment: 301.2 Performed By: #### L 500.4050, L100.0500 #### [facility] [address] [place], [address] RBC (Bld) [#/Vol] 3.10 10*6/uL Low 4.2-5.4 [facility] Comment on above: Order Comment: 301.2 Performed By: #### L 500.4050, L100.0500 #### [facility] [address] [place], [address] RDW SD 48.9 fl High 35.1-43.9 [facility] Comment on above: Order Comment: 301.2 Performed By: #### L 500.4050, L100.0500 #### [facility] [address] [place], [address] WBC (Bld) [#/Vol] 5.6 10*3/uL Normal 4.4-11.0 [facility] Comment on above: Order Comment: 301.2 Performed By: #### L 500.4050, L100.0500 #### [facility] [address] [place], [address] Carbon dioxide measurementOr dered By: Kam Ocampo on 02-09-2024 CO2 [Moles/Vol] 28.0 mmol/L 21.0-32.0 [facility] Chloride measurementOrdered By: Kam Ocampo on 02-09-2024 Chloride [Moles/Vol] 105 mmol/L 98-107 [facility] Eosinophil percentageOrdered By: Kam Ocampo on 02-09-2024 Eosinophils/100 WBC (Bld) 0.2 % 0-5 [facility] Erythrocyte distribution wid th (RBC) [Ratio]Ordered By: Kam Ocampo on 02-09-2024 Erythrocyte distribution width (RBC) [Entitic vol] 48.9 fL High 35.1-43.9 [facility] Erythrocyte distribution wid th ratioOrdered By: Kam Ocampo on 02-09-2024 Erythrocyte distribution width (RBC) [Ratio] 13.9 % 11.6-14.6 [facility] Estimated glomerular filtrat ion rate (GFR) AmericanOrdered By: Kam Ocampo on 02-09-2024 Estimated GFR (MDRD) Amer 69 mL/min >60 [facility] Comment on above: GFR Calc Glomerular filtration rate ( GFR) estimationOrdered By: Kam Ocampo on 12-31-2024 Estimated GFR (MDRD) Non-Af Amer 57 mL/min Low >60 [facility] Comment on above: Non- GFR Calc Glucose measurementOrdered B y: Kam Ocampo on 02-09-2024 Glucose [Mass/Vol] 88 mg/dL 74-106 [facility] Hematocrit Auto (Bld) [Volum e fraction]Ordered By: Kam Ocampo on 02-09-2024 Hematocrit (Bld) [Volume fraction] 30.0 % Low 37-47 [facility] Hemoglobin measurementOrdere d By: Kam Ocampo on 02-09-2024 Hemoglobin (Bld) [Mass/Vol] 10.0 g/dL Low 12.0-15.0 [facility] Immature granulocytes/100 WB C Auto (Bld)Ordered By: Kam Ocampo on 02-09-2024 Immature granulocytes/100 WBC (Bld) 0.400 % 0.0-0.9 [facility] Comment on above: IG% - Immature Granu locytes (promyelocytes, myelocytes and metamyelocytes) > 1% indicates that a LEFT SHIFT is Present. Lymphocytes Auto (Unsp spec) [#/Vol]Ordered By: Kam Ocampo on 02-09-2024 Lymphocytes (Bld) [#/Vol] 1.89 10*3/uL 0.83-4.51 [facility] Lymphocytes/100 WBC Auto (Un sp spec)Ordered By: Kam Ocampo on 02-09-2024 Lymphocytes/100 WBC (Bld) 33.9 % 19-41 [facility] MCV (mean corpuscular volume ) determinationOrdered By: Kam Ocampo on 02-09-2024 MCV (RBC) [Entitic vol] 96.8 fL 81-99 [facility] Mean corpuscular hemoglobin (MCH) determinationOrdered By: Kam Ocampo on 02-09-2024 MCH (RBC) [Entitic mass] 32.3 pg High 27.0-32.0 [facility] Mean corpuscular hemoglobin concentration (MCHC) determinationOrdered By: Kam Ocampo on 02-09-2024 MCHC (RBC) [Mass/Vol] 33.3 g/dL 32-36 [facility] Mean platelet volume determi nationOrdered By: Kam Ocampo on 02-09-2024 Platelet mean volume (Bld) [Entitic vol] 9.5 fL 6.2-12.0 [facility] Monocyte percentageOrdered B y: Kam Ocampo on 02-09-2024 Monocytes/100 WBC (Bld) 8.8 % 0-10 [facility] Neutrophil percentageOrdered By: Kam Ocampo on 02-09-2024 Neutrophils/100 WBC (Bld) 56.5 % 47-70 [facility] Nucleated red blood cell per centageOrdered By: Kam Ocampo on 02-09-2024 Nucleated RBC/100 WBC (Bld) [Ratio] 0 % 0-5 [facility] Platelet countOrdered By: Dugan on 02-09-2024 Platelets (Bld) [#/Vol] 181 10*3/uL 150-450 [facility] Potassium measurementOrdered By: Kam Ocampo on 02-09-2024 Potassium [Moles/Vol] 4.2 mmol/L 3.5-5.1 [facility] RBC Auto (Bld) [#/Vol]Ordere d By: Kam Ocampo on 02-09-2024 RBC (Bld) [#/Vol] 3.10 10*6/uL Low 4.2-5.4 [facility] Serum anion gap measurementO rdered By: Kam Ocampo on 02-09-2024 Anion gap [Moles/Vol] 5 mmol/L 5-15 [facility] Serum or plasma calcium светлана urement (mass/volume)Ordered By: Kam Ocampo on 02-09-2024 Calcium [Mass/Vol] 9.0 mg/dL 8.5-10.1 [facility] Serum or plasma creatinine m easurement (mass/volume)Ordered By: Kam Ocampo on 02-09-2024 Creatinine [Mass/Vol] 0.98 mg/dL 0.55-1.02 [facility] Comment on above: The validity of the calculated GFR & GFRAA in patients over 70 years has not been determined. Clinical correlation is essential. Serum or plasma urea nitroge n measurement (mass/volume)Ordered By: Kam Ocampo on 02-09-2024 Urea nitrogen [Mass/Vol] 18 mg/dL - [facility] Sodium levelOrdered By: Kam Ocampo on 02-09-2024 Sodium [Moles/Vol] 138 mmol/L 136-145 [facility] White blood cell (WBC) count Ordered By: Kam Ocampo on 02-09-2024 WBC (Bld) [#/Vol] 5.6 10*3/uL 4.4-11.0 [facility] FLU AND RSV PANEL MOLECULARo n 02-08-2024 FLU AND RSV PANEL INFLUENZA A Negative INFLUENZA B Negative RSV PCR Negative Normal [facility] Comment on above: Performed By: #### M 100.640 #### [facility] [address] [place], [address] No Panel InformationOrdered By: Kam Ocampo on 02-08-2024 Influenza & RSV (PCR) [facility] Urine Cultureon 01-27-2024 URC Culture exhibits no growth. Normal [facility] Comment on above: Performed By: #### L 500.4050, L100.0500 #### [facility] [address] [place], [address] Albumin to globulin ratioOrd ered By: Kam Ocampo on 01-26-2024 Albumin/Globulin [Mass ratio] 0.7 {ratio} Low 0.9-2.4 [facility] Bilirubin, totalOrdered By: Kam Ocampo on 01-26-2024 Bilirubin [Mass/Vol] 0.50 mg/dL 0.20-1.00 [facility] Comment on above: For patients on eltr ombopag therapy, use of Dimension Sula TBIL is not recommended. Blood urea nitrogen (BUN)/cr eatinine ratioOrdered By: Kam Ocampo on 01-26-2024 Urea nitrogen/Creatinine [Mass ratio] 15.8 mg/mg 11-28 [facility] CBC-Complete Blood Cnt No Di ffon 01-26-2024 Erythrocyte distribution width (RBC) [Ratio] 13.5 % Normal 11.6-14.6 [facility] Comment on above: Performed By: #### M 100.2200, L100.0500, L500.4050, L400.0001 #### [facility] [address] [place], [address] Hematocrit (Bld) [Volume fraction] 31.1 % Low 37-47 [facility] Comment on above: Performed By: #### M 100.2200, L100.0500, L500.4050, L400.0001 #### [facility] [address] [place], [address] Hemoglobin (Bld) [Mass/Vol] 10.0 g/dL Low 12.0-15.0 [facility] Comment on above: Performed By: #### M 100.2200, L100.0500, L500.4050, L400.0001 #### [facility] [address] [place], [address] MCH (RBC) [Entitic mass] 31.6 pg Normal 27.0-32.0 [facility] Comment on above: Performed By: #### M 100.2200, L100.0500, L500.4050, L400.0001 #### [facility] [address] [place], [address] MCHC (RBC) [Mass/Vol] 32.2 g/dL Normal 32-36 [facility] Comment on above: Performed By: #### M 100.2200, L100.0500, L500.4050, L400.0001 #### [facility] [address] [place], [address] MCV (RBC) [Entitic vol] 98.4 fL Normal 81-99 [facility] Comment on above: Performed By: #### M 100.2200, L100.0500, L500.4050, L400.0001 #### [facility] [address] [place], [address] Platelet mean volume (Bld) [Entitic vol] 9.2 fL Normal 6.2-12.0 [facility] Comment on above: Performed By: #### M 100.2200, L100.0500, L500.4050, L400.0001 #### [facility] [address] [place], [address] Platelets (Bld) [#/Vol] 197 10*3/uL Normal 150-450 [facility] Comment on above: Performed By: #### M 100.2200, L100.0500, L500.4050, [id number] #### [facility] [address] [place], [address] RBC (Bld) [#/Vol] 3.16 10*6/uL Low 4.2-5.4 [facility] Comment on above: Performed By: #### M 100.2200, L100.0500, L500.4050, L400.0001 #### [facility] [address] [place], [address] RDW SD 48.3 fl High 35.1-43.9 [facility] Comment on above: Performed By: #### M 100.2200, L100.0500, L500.4050, L400.0001 #### [facility] [address] [place], [address] WBC (Bld) [#/Vol] 5.2 10*3/uL Normal 4.4-11.0 [facility] Comment on above: Performed By: #### M 100.2200, L100.0500, L500.4050, L400.0001 #### [facility] [address] [place], [address] Carbon dioxide measurementOr dered By: Kam Ocampo on 01-26-2024 CO2 [Moles/Vol] 29.0 mmol/L 21.0-32.0 [facility] Chloride measurementOrdered By: Kam Ocampo on 01-26-2024 Chloride [Moles/Vol] 110 mmol/L High 98-107 [facility] Comprehensive Metabolic Prof ilon 01-26-2024 Albumin [Mass/Vol] 2.6 g/dL Low 3.2-5.0 [facility] Comment on above: Order Comment: 301.2 Performed By: #### L 500.4050, L100.0500 #### [facility] [address] [place], [address] Albumin/Globulin [Mass ratio] 0.7 {ratio} Low 0.9-2.4 [facility] Comment on above: Order Comment: 301.2 Performed By: #### L 500.4050, L100.0500 #### [facility] [address] [place], [address] ALK P 67 U/L Normal 45-117 [facility] Comment on above: Order Comment: 301.2 Performed By: #### L 500.4050, L100.0500 #### [facility] [address] [place], [address] ALT [Catalytic activity/Vol] 28 U/L Normal 13-56 [facility] Comment on above: Order Comment: 301.2 Performed By: #### L 500.4050, L100.0500 #### [facility] [address] [place], [address] AST [Catalytic activity/Vol] 25 U/L Normal 15-37 [facility] Comment on above: Order Comment: 301.2 Performed By: #### L 500.4050, L100.0500 #### [facility] [address] [place], [address] Bilirubin [Mass/Vol] 0.50 mg/dL Normal 0.20-1.00 [facility] Comment on above: Order Comment: 301.2 Result Comment: For patients on eltrombopag therapy, use of Dimension [place] TBIL is not recommended. Performed By: #### L 500.4050, L100.0500 #### [facility] [address] [place], [address] BUN/CRE 15.8 RATIO Normal 10-20 [facility] Comment on above: Order Comment: 301.2 Performed By: #### L 500.4050, L100.0500 #### [facility] [address] [place], [address] CA,Total 8.6 mg/dL Normal 8.5-10.1 [facility] Comment on above: Order Comment: 301.2 Performed By: #### L 500.4050, L100.0500 #### [facility] [address] [place], [address] Chloride [Moles/Vol] 110 mmol/L High 98-107 [facility] Comment on above: Order Comment: 301.2 Performed By: #### L 500.4050, L100.0500 #### [facility] [address] [place], [address] CO2 [Moles/Vol] 29.0 mmol/L Normal 21.0-32.0 [facility] Comment on above: Order Comment: 301.2 Performed By: #### L 500.4050, L100.0500 #### [facility] [address] [place], [address] Creatinine [Mass/Vol] 0.89 mg/dL Normal 0.55-1.02 [facility] Comment on above: Order Comment: 301.2 Result Comment: The validity of the calculated GFR GFRAA in patients over 70 years has not been determined. Clinical correlation is essential. Performed By: #### L 500.4050, L100.0500 #### [facility] [address] [place], [address] EST GFR - AA 77 mL/min Normal >60 [facility] Comment on above: Order Comment: 301.2 Result Comment: Afri can [place] GFR Calc Performed By: #### L 500.4050, L100.0500 #### [facility] [address] [place], [address] GAP 3 Low 5-15 [facility] Comment on above: Order Comment: 301.2 Performed By: #### L 500.4050, L100.0500 #### [facility] [address] [place], [address] GFR/1.73 sq M.predicted among non-blacks MDRD (S/P/Bld) [Vol rate/Area] 64 mL/min/{1.73_m2} Normal >60 [facility] Comment on above: Order Comment: 301.2 Result Comment: Non- GFR Calc Performed By: #### L 500.4050, L100.0500 #### [facility] [address] [place], [address] Globulin (S) [Mass/Vol] 3.8 g/dL Normal 2.2-4.2 [facility] Comment on above: Order Comment: 301.2 Performed By: #### L 500.4050, L100.0500 #### [facility] [address] [place], [address] Glucose [Mass/Vol] 84 mg/dL Normal 74-106 [facility] Comment on above: Order Comment: 301.2 Performed By: #### L 500.4050, L100.0500 #### [facility] [address] [place], [address] Potassium [Moles/Vol] 4.4 mmol/L Normal 3.5-5.1 [facility] Comment on above: Order Comment: 301.2 Performed By: #### L 500.4050, L100.0500 #### [facility] [address] [place], [address] Sodium [Moles/Vol] 142 mmol/L Normal 136-145 [facility] Comment on above: Order Comment: 301.2 Performed By: #### L 500.4050, L100.0500 #### [facility] [address] [place], [address] T PROT 6.4 g/dL Normal 6.4-8.2 [facility] Comment on above: Order Comment: 301.2 Performed By: #### L 500.4050, L100.0500 #### [facility] [address] [place], [address] Urea nitrogen [Mass/Vol] 14 mg/dL Normal 7-18 [facility] Comment on above: Order Comment: 301.2 Performed By: #### L 500.4050, L100.0500 #### [facility] [address] [place], [address] Erythrocyte distribution wid th (RBC) [Ratio]Ordered By: Kam Ocampo on 01-26-2024 Erythrocyte distribution width (RBC) [Entitic vol] 48.3 fL High 35.1-43.9 [facility] Erythrocyte distribution wid th ratioOrdered By: Kam Ocampo on 01-26-2024 Erythrocyte distribution width (RBC) [Ratio] 13.5 % 11.6-14.6 [facility] Estimated glomerular filtrat ion rate (GFR) AmericanOrdered By: Kam Ocampo on 01-26-2024 Estimated GFR (MDRD) Amer 77 mL/min >60 [facility] Comment on above: GFR Calc Glomerular filtration rate ( GFR) estimationOrdered By: Kam Ocampo on 01-26-2024 Estimated GFR (MDRD) Non-Af Amer 64 mL/min >60 [facility] Comment on above: Non- GFR Calc Glucose measurementOrdered B y: Kam Ocampo on 01-26-2024 Glucose [Mass/Vol] 84 mg/dL 74-106 [facility] Hematocrit Auto (Bld) [Volum e fraction]Ordered By: Kam Ocampo on 01-26-2024 Hematocrit (Bld) [Volume fraction] 31.1 % Low 37-47 [facility] Hemoglobin measurementOrdere d By: Kam Ocampo on 01-26-2024 Hemoglobin (Bld) [Mass/Vol] 10.0 g/dL Low 12.0-15.0 [facility] Laboratory - Chemistry and C hemistry - challengeOrdered By: Kam Ocampo on 01-26-2024 AST [Catalytic activity/Vol] 25 U/L 15-37 [facility] MCV (mean corpuscular volume ) determinationOrdered By: Kam Ocampo on 01-26-2024 MCV (RBC) [Entitic vol] 98.4 fL 81-99 [facility] Mean corpuscular hemoglobin (MCH) determinationOrdered By: Kam Ocampo on 01-26-2024 MCH (RBC) [Entitic mass] 31.6 pg 27.0-32.0 [facility] Mean corpuscular hemoglobin concentration (MCHC) determinationOrdered By: Kam Ocampo on 01-26-2024 MCHC (RBC) [Mass/Vol] 32.2 g/dL 32-36 [facility] Mean platelet volume determi nationOrdered By: Kam Ocampo on 01-26-2024 Platelet mean volume (Bld) [Entitic vol] 9.2 fL 6.2-12.0 [facility] Platelet countOrdered By: Dugan on 01-26-2024 Platelets (Bld) [#/Vol] 197 10*3/uL 150-450 [facility] Potassium measurementOrdered By: Kam Ocampo on 01-26-2024 Potassium [Moles/Vol] 4.4 mmol/L 3.5-5.1 [facility] RBC Auto (Bld) [#/Vol]Ordere d By: Kam Ocampo on 01-26-2024 RBC (Bld) [#/Vol] 3.16 10*6/uL Low 4.2-5.4 [facility] Serum anion gap measurementO rdered By: Kam Ocampo on 01-26-2024 Anion gap [Moles/Vol] 3 mmol/L Low 5-15 [facility] Serum globulin measurementOr dered By: Kam Ocampo on 01-26-2024 Globulin (S) [Mass/Vol] 3.8 g/dL 2.2-4.2 [facility] Serum or plasma alanine browne otransferase (ALT) measurementOrdered By: Kam Ocampo on 01-26-2024 ALT [Catalytic activity/Vol] 28 U/L 13-56 [facility] Serum or plasma albumin светлана urement (mass/volume)Ordered By: Kam Ocampo on 01-26-2024 Albumin [Mass/Vol] 2.6 g/dL Low 3.2-5.0 [facility] Serum or plasma alkaline noy sphatase measurementOrdered By: Kam Ocampo on 01-26-2024 ALP [Catalytic activity/Vol] 67 U/L 45-117 [facility] Serum or plasma calcium светлана urement (mass/volume)Ordered By: Kam Ocampo on 01-26-2024 Calcium [Mass/Vol] 8.6 mg/dL 8.5-10.1 [facility] Serum or plasma creatinine m easurement (mass/volume)Ordered By: Kam Ocampo on 01-26-2024 Creatinine [Mass/Vol] 0.89 mg/dL 0.55-1.02 [facility] Comment on above: The validity of the calculated GFR & GFRAA in patients over 70 years has not been determined. Clinical correlation is essential. Serum or plasma urea nitroge n measurement (mass/volume)Ordered By: Kam Ocampo on 01-26-2024 Urea nitrogen [Mass/Vol] 14 mg/dL 7-18 [facility] Sodium levelOrdered By: Kam Ocampo on 01-26-2024 Sodium [Moles/Vol] 142 mmol/L 136-145 [facility] Total proteinOrdered By: Aline Ocampo on 01-26-2024 Protein [Mass/Vol] 6.4 g/dL 6.4-8.2 [facility] Urinalysis, Completeon 01-25 Mucus Ql (Urine sed) RARE Normal [facility] Comment on above: Order Comment: SC CATHETER SPECIMEN Performed By: #### M 100.2200, L100.0500, L500.4050, L400.0001 #### [facility] [address] [place], [address] WBC 0-5 SEEN Normal 0-5 [facility] Comment on above: Order Comment: SC CATHETER SPECIMEN Performed By: #### M 100.2200, L100.0500, L500.4050, L400.0001 #### [facility] [address] [place], [address] BACTERIA 0 SEEN Normal None Seen [facility] Comment on above: Order Comment: SC CATHETER SPECIMEN Performed By: #### M 100.2200, L100.0500, L500.4050, L400.0001 #### [facility] [address] [place], [address] EPI,SQUAMOUS 0 SEEN Normal 5-10 [facility] Comment on above: Order Comment: SC CATHETER SPECIMEN Performed By: #### M 100.2200, L100.0500, L500.4050, L400.0001 #### [facility] Laboratory [address] [place], [address] RBC 0 SEEN Normal 0-5 [facility] Comment on above: Order Comment: SC CATHETER SPECIMEN Performed By: #### M 100.2200, L100.0500, L500.4050, L400.0001 #### [facility] [address] [place], [address] White blood cell (WBC) count Ordered By: Kam Ocampo on 01-26-2024 WBC (Bld) [#/Vol] 5.2 10*3/uL 4.4-11.0 [facility] Bilirubin Test strip Ql (U)O rdered By: Kam Ocampo on 01-25-2024 Bilirubin Ql (U) Negative Negative [facility] Epithelial cells.squamous LM Ql (Urine sed)Ordered By: Kam Ocampo on 01-25-2024 Epithelial cells.squamous LM.HPF (Urine sed) [#/Area] 0 /[HPF] 5-10 [facility] Glucose Ql (U)Ordered By: Dugan on 01-25-2024 Urine Glucose (UA) Normal mg/dl Normal [facility] Ketones Test strip Ql (U)Ord ered By: Kam Ocampo on 01-25-2024 Ketones Ql (U) Negative Negative [facility] Microscopic analysis of urin e for red blood cells (RBC)Ordered By: Kam Ocampo on 01-25-2024 Urine RBC 0 SEEN /hpf 0-5 [facility] Mucus LM Ql (Urine sed)Order ed By: Kam Ocampo on 01-25-2024 Mucus Ql (Urine sed) RARE /hpf [facility] Nitrite Test strip Ql (U)Ord ered By: Kam Ocampo on 01-25-2024 Nitrite Ql (U) Negative Negative [facility] Protein Test strip Ql (U)Ord ered By: Kam Ocampo on 01-25-2024 Protein Ql (U) 15 mg/dl High Negative [facility] Urine blood detectionOrdered By: Kam Ocampo on 01-25-2024 Urine Occult Blood Negative Negative [facility] Urine clarityOrdered By: Aline Ocampo on 01-25-2024 Clarity (U) Clear Clear [facility] Urine color determinationOrd ered By: Kam Ocampo on 01-25-2024 Color (U) Yellow Yellow [facility] Urine cultureOrdered By: Aline Ocampo on 01-25-2024 Bacteria identified Cx Nom (U) Culture exhibits no growth. [facility] Urine leukocyte esterase det ection by dipstickOrdered By: Kam Ocampo on 01-25-2024 Leukocyte esterase Test strip Ql (U) 25 /ul High Negative [facility] Urine pHOrdered By: Kam barker on 01-25-2024 pH (U) 6.0 [pH] 5.0 - 8.0 [facility] Urine sediment bacteria coun t by microscopy (number/high power field)Ordered By: Kam Ocampo on 01-25-2024 Bacteria LM.HPF (Urine sed) [#/Area] 0 /[HPF] None Seen [facility] Urine specific gravity measu rementOrdered By: Kam Ocampo on 01-25-2024 Specific gravity (U) [Rel density] 1.015 1.002-1.03 0 [facility] Urobilinogen Ql (U)Ordered B y: Kamwilber Ocampo on 01-25-2024 Urine Urobilinogen Normal mg/dl Normal [facility] White blood cell countOrdere d By: Kam Ocampo on 01-25-2024 Urine WBC 0-5 SEEN /hpf 0-5 [facility] Urine Cultureon 01-13-2024 URC Proteus mirabilis [place] Count >100,000 Proteus mirabilis: REACTION Ampicillin Islt AYAH <=2 Ampicillin+Sulbac Islt AYAH <=2 S ceFAZolin Islt AYAH <=4 S Cefepime Islt AYAH <=0.12 S cefTRIAXone Islt AYAH <=0.25 S Ciprofloxacin Islt AYAH >=4 R Gentamicin Islt AYAH <=1 S Imipenem Islt AYAH 2 S levoFLOXacin Islt AYAH >=8 R Nitrofurantoin Islt AYAH R Pip+Tazo Islt AYAH <=4 S Tobramycin Islt AYAH <=1 S TMP SMX Islt AYAH >=320 R Normal [facility] Comment on above: Performed By: #### L 500.4050, L100.0500 #### [facility] [address] [place], [address] Urinalysis, Completeon 01-10 RBC 0-5 SEEN Normal 0-5 [facility] Comment on above: Order Comment: 301.2 Performed By: #### L 500.4050, L100.0500 #### [facility] [address] [place], [address] BACTERIA 2+ /hpf Normal None Seen [facility] Comment on above: Order Comment: 301.2 Performed By: #### L 500.4050, L100.0500 #### [facility] [address] [place], [address] EPI,SQUAMOUS 0-5 SEEN Normal 5-10 [facility] Comment on above: Order Comment: 301.2 Performed By: #### L 500.4050, L100.0500 #### [facility] [address] [place], [address] WBC >100 SEEN Normal 0-5 [facility] Comment on above: Order Comment: 301.2 Performed By: #### L 500.4050, L100.0500 #### [facility] [address] [place], [address] Mucus Ql (Urine sed) 0 SEEN Normal [facility] Comment on above: Order Comment: 301.2 Performed By: #### L 500.4050, L100.0500 #### [facility] [address] [place], [address] Lipid Profileon 12-14-2023 Cholesterol [Mass/Vol] 120 mg/dL Normal 200 [facility] Comment on above: Order Comment: 301.2 Result Comment: <200 mg/dL Desirable 200-240 mg/dL Borderline >240 mg/dL High Risk Performed By: #### L 500.4050, L100.0500 #### [facility] [address] [place], [address] Cholesterol in HDL [Mass/Vol] 55 mg/dL Normal [facility] Comment on above: Order Comment: 301.2 Result Comment: The drugs N-Acetylcysteine and Metamizole may falsely depress this assay. Reference Range HDL <40 mg/dL Low HDL Cholesterol HDL >or= 60 mg/dL High HDL Cholesterol Performed By: #### L 500.4050, L100.0500 #### [facility] [address] [place], [address] Cholesterol in LDL [Mass/Vol] 51 mg/dL Normal 0-130 [facility] Comment on above: Order Comment: 301.2 Performed By: #### L 500.4050, L100.0500 #### [facility] [address] [place], [address] Cholesterol in VLDL [Mass/Vol] 14 mg/dL Normal 5-40 [facility] Comment on above: Order Comment: 301.2 Performed By: #### L 500.4050, L100.0500 #### [facility] [address] [place], [address] Triglyceride [Mass/Vol] 70 mg/dL Normal [facility] Comment on above: Order Comment: 301.2 Result Comment: The drugs N-Acetylcysteine and Metamizole may falsely depress this assay. Serum Triglycerides Reference Interval Normal <150 mg/dL Borderline high 150 - 199 mg/dL High 200 - 499 mg/dL Very High > or = 500 mg/dL Performed By: #### L 500.4050, L100.0500 #### [facility] [address] [place], [address] CBC-Complete Blood Cnt No Di ffon 10-21-2023 Erythrocyte distribution width (RBC) [Ratio] 13.7 % Normal 11.6-14.6 [facility] Comment on above: Order Comment: 301.2 Performed By: #### L 500.4050, L100.0500 #### [facility] [address] [place], [address] Hematocrit (Bld) [Volume fraction] 32.2 % Low 37-47 [facility] Comment on above: Order Comment: 301.2 Performed By: #### L 500.4050, L100.0500 #### [facility] [address] [place], [address] Hemoglobin (Bld) [Mass/Vol] 10.2 g/dL Low 12.0-15.0 [facility] Comment on above: Order Comment: 301.2 Performed By: #### L 500.4050, L100.0500 #### [facility] [address] [place], [address] MCH (RBC) [Entitic mass] 32.3 pg High 27.0-32.0 [facility] Comment on above: Order Comment: 301.2 Performed By: #### L 500.4050, L100.0500 #### [facility] [address] [place], [address] MCHC (RBC) [Mass/Vol] 31.7 g/dL Low 32-36 [facility] Comment on above: Order Comment: 301.2 Performed By: #### L 500.4050, L100.0500 #### [facility] [address] [place], [address] MCV (RBC) [Entitic vol] 101.9 fL High 81-99 [facility] Comment on above: Order Comment: 301.2 Performed By: #### L 500.4050, L100.0500 #### [facility] [address] [place], [address] Platelet mean volume (Bld) [Entitic vol] 10.0 fL Normal 6.2-12.0 [facility] Comment on above: Order Comment: 301.2 Performed By: #### L 500.4050, L100.0500 #### [facility] [address] [place], [address] Platelets (Bld) [#/Vol] 157 10*3/uL Normal 150-450 [facility] Comment on above: Order Comment: 301.2 Performed By: #### L 500.4050, L100.0500 #### [facility] [address] [place], [address] RBC (Bld) [#/Vol] 3.16 10*6/uL Low 4.2-5.4 [facility] Comment on above: Order Comment: 301.2 Performed By: #### L 500.4050, L100.0500 #### [facility] [address] [place], [address] RDW SD 51.9 fl High 35.1-43.9 [facility] Comment on above: Order Comment: 301.2 Performed By: #### L 500.4050, L100.0500 #### [facility] [address] [place], [address] WBC (Bld) [#/Vol] 4.3 10*3/uL Low 4.4-11.0 [facility] Comment on above: Order Comment: 301.2 Performed By: #### L 500.4050, L100.0500 #### [facility] [address] [place], [address] Comprehensive Metabolic Prof ilon 10-21-2023 Albumin [Mass/Vol] 2.8 g/dL Low 3.2-5.0 [facility] Comment on above: Order Comment: 301.2 Performed By: #### L 500.4050, L100.0500 #### [facility] [address] [place], [address] Albumin/Globulin [Mass ratio] 0.7 {ratio} Low 0.9-2.4 [facility] Comment on above: Order Comment: 301.2 Performed By: #### L 500.4050, L100.0500 #### [facility] [address] [place], [address] ALK P 64 U/L Normal 45-117 [facility] Comment on above: Order Comment: 301.2 Performed By: #### L 500.4050, L100.0500 #### [facility] [address] [place], [address] ALT [Catalytic activity/Vol] 27 U/L Normal 13-56 [facility] Comment on above: Order Comment: 301.2 Performed By: #### L 500.4050, L100.0500 #### [facility] [address] [place], [address] AST [Catalytic activity/Vol] 24 U/L Normal 15-37 [facility] Comment on above: Order Comment: 301.2 Performed By: #### L 500.4050, L100.0500 #### [facility] [address] [place], [address] Bilirubin [Mass/Vol] 0.40 mg/dL Normal 0.20-1.00 [facility] Comment on above: Order Comment: 301.2 Result Comment: For patients on eltrombopag therapy, use of Dimension S[place] TBIL is not recommended. Performed By: #### L 500.4050, L100.0500 #### [facility] [address] [place], [address] BUN/CRE 21.2 RATIO High 10-20 [facility] Comment on above: Order Comment: 301.2 Performed By: #### L 500.4050, L100.0500 #### [facility] [address] [place], [address] CA,Total 9.0 mg/dL Normal 8.5-10.1 [facility] Comment on above: Order Comment: 301.2 Performed By: #### L 500.4050, L100.0500 #### [facility] [address] [place], [address] Chloride [Moles/Vol] 108 mmol/L High 98-107 [facility] Comment on above: Order Comment: 301.2 Performed By: #### L 500.4050, L100.0500 #### [facility] [address] [place], [address] CO2 [Moles/Vol] 25.0 mmol/L Normal 21.0-32.0 [facility] Comment on above: Order Comment: 301.2 Performed By: #### L 500.4050, L100.0500 #### [facility] [address] [place], [address] Creatinine [Mass/Vol] 0.85 mg/dL Normal 0.55-1.02 [facility] Comment on above: Order Comment: 301.2 Result Comment: The validity of the calculated GFR GFRAA in patients over 70 years has not been determined. Clinical correlation is essential. Performed By: #### L 500.4050, L100.0500 #### [facility] [address] [place], [address] EST GFR - AA 81 mL/min Normal >60 [facility] Comment on above: Order Comment: 301.2 Result Comment: Afri can [place] GFR Calc Performed By: #### L 500.4050, L100.0500 #### [facility] [address] [place], [address] GAP 7 Normal 5-15 [facility] Comment on above: Order Comment: 301.2 Performed By: #### L 500.4050, L100.0500 #### [facility] [address] [place], [address] GFR/1.73 sq M.predicted among non-blacks MDRD (S/P/Bld) [Vol rate/Area] 67 mL/min/{1.73_m2} Normal >60 [facility] Comment on above: Order Comment: 301.2 Result Comment: Non- GFR Calc Performed By: #### L 500.4050, L100.0500 #### [facility] [address] [place], [address] Globulin (S) [Mass/Vol] 3.9 g/dL Normal 2.2-4.2 [facility] Comment on above: Order Comment: 301.2 Performed By: #### L 500.4050, L100.0500 #### [facility] [address] [place], [address] Glucose [Mass/Vol] 89 mg/dL Normal 74-106 [facility] Comment on above: Order Comment: 301.2 Performed By: #### L 500.4050, L100.0500 #### [facility] [address] [place], [address] Potassium [Moles/Vol] 3.9 mmol/L Normal 3.5-5.1 [facility] Comment on above: Order Comment: 301.2 Performed By: #### L 500.4050, L100.0500 #### [facility] [address] [place], [address] Sodium [Moles/Vol] 140 mmol/L Normal 136-145 [facility] Comment on above: Order Comment: 301.2 Performed By: #### L 500.4050, L100.0500 #### [facility] [address] [place], [address] T PROT 6.7 g/dL Normal 6.4-8.2 [facility] Comment on above: Order Comment: 301.2 Performed By: #### L 500.4050, L100.0500 #### [facility] [address] [place], [address] Urea nitrogen [Mass/Vol] 18 mg/dL Normal 7-18 [facility] Comment on above: Order Comment: 301.2 Performed By: #### L 500.4050, L100.0500 #### [facility] [address] [place], [address] Basic Metabolic Profile (BMP )on 09-16-2023 BUN/CRE 17.2 RATIO Normal 10-20 [facility] Comment on above: Order Comment: 301.2 Performed By: #### L 500.2500, L100.0500 #### [facility] [address] [place], [address] CA,Total 9.0 mg/dL Normal 8.5-10.1 [facility] Comment on above: Order Comment: 301.2 Performed By: #### L 500.2500, L100.0500 #### [facility] [address] [place], [address] Chloride [Moles/Vol] 109 mmol/L High 98-107 [facility] Comment on above: Order Comment: 301.2 Performed By: #### L 500.2500, L100.0500 #### [facility] [address] [place], [address] CO2 [Moles/Vol] 27.0 mmol/L Normal 21.0-32.0 [facility] Comment on above: Order Comment: 301.2 Performed By: #### L 500.2500, L100.0500 #### [facility] [address] [place], [address] Creatinine [Mass/Vol] 0.93 mg/dL Normal 0.55-1.02 [facility] Comment on above: Order Comment: 301.2 Result Comment: The validity of the calculated GFR GFRAA in patients over 70 years has not been determined. Clinical correlation is essential. Performed By: #### L 500.2500, L100.0500 #### [facility] [address] [place], [address] EST GFR - AA 73 mL/min Normal >60 [facility] Comment on above: Order Comment: 301.2 Result Comment: Afri can [place] GFR Calc Performed By: #### L 500.2500, L100.0500 #### [facility] [address] [place], [address] GAP 5 Normal 5-15 [facility] Comment on above: Order Comment: 301.2 Performed By: #### L 500.2500, L100.0500 #### [facility] [address] [place], [address] GFR/1.73 sq M.predicted among non-blacks MDRD (S/P/Bld) [Vol rate/Area] 61 mL/min/{1.73_m2} Normal >60 [facility] Comment on above: Order Comment: 301.2 Result Comment: Non- GFR Calc Performed By: #### L 500.2500, L100.0500 #### [facility] [address] [place], [address] Glucose [Mass/Vol] 84 mg/dL Normal 74-106 [facility] Comment on above: Order Comment: 301.2 Performed By: #### L 500.2500, L100.0500 #### [facility] [address] [place], [address] Potassium [Moles/Vol] 4.1 mmol/L Normal 3.5-5.1 [facility] Comment on above: Order Comment: 301.2 Performed By: #### L 500.2500, L100.0500 #### [facility] [address] [place], [address] Sodium [Moles/Vol] 141 mmol/L Normal 136-145 [facility] Comment on above: Order Comment: 301.2 Performed By: #### L 500.2500, L100.0500 #### [facility] [address] [place], [address] Urea nitrogen [Mass/Vol] 16 mg/dL Normal 7-18 [facility] Comment on above: Order Comment: 301.2 Performed By: #### L 500.2500, L100.0500 #### [facility] [address] [place], [address] CBC-Complete Blood Cnt No Di ffon 09-16-2023 Erythrocyte distribution width (RBC) [Ratio] 13.9 % Normal 11.6-14.6 [facility] Comment on above: Order Comment: 301.2 Performed By: #### L 500.2500, L100.0500 #### [facility] [address] [place], [address] Hematocrit (Bld) [Volume fraction] 30.8 % Low 37-47 [facility] Comment on above: Order Comment: 301.2 Performed By: #### L 500.2500, L100.0500 #### [facility] [address] [place], [address] Hemoglobin (Bld) [Mass/Vol] 10.0 g/dL Low 12.0-15.0 [facility] Comment on above: Order Comment: 301.2 Performed By: #### L 500.2500, L100.0500 #### [facility] [address] [place], [address] MCH (RBC) [Entitic mass] 32.2 pg High 27.0-32.0 [facility] Comment on above: Order Comment: 301.2 Performed By: #### L 500.2500, L100.0500 #### [facility] [address] [place], [address] MCHC (RBC) [Mass/Vol] 32.5 g/dL Normal 32-36 [facility] Comment on above: Order Comment: 301.2 Performed By: #### L 500.2500, L100.0500 #### [facility] [address] [place], [address] MCV (RBC) [Entitic vol] 99.0 fL Normal 81-99 [facility] Comment on above: Order Comment: 301.2 Performed By: #### L 500.2500, L100.0500 #### [facility] [address] [place], [address] Platelet mean volume (Bld) [Entitic vol] 9.6 fL Normal 6.2-12.0 [facility] Comment on above: Order Comment: 301.2 Performed By: #### L 500.2500, L100.0500 #### [facility] [address] [place], [address] Platelets (Bld) [#/Vol] 200 10*3/uL Normal 150-450 [facility] Comment on above: Order Comment: 301.2 Performed By: #### L 500.2500, L100.0500 #### [facility] [address] [place], [address] RBC (Bld) [#/Vol] 3.11 10*6/uL Low 4.2-5.4 [facility] Comment on above: Order Comment: 301.2 Performed By: #### L 500.2500, L100.0500 #### [facility] [address] [place], [address] RDW SD 50.5 fl High 35.1-43.9 [facility] Comment on above: Order Comment: 301.2 Performed By: #### L 500.2500, L100.0500 #### [facility] [address] [place], [address] WBC (Bld) [#/Vol] 5.3 10*3/uL Normal 4.4-11.0 [facility] Comment on above: Order Comment: 301.2 Performed By: #### L 500.2500, L100.0500 #### [facility] [address] [place], [address] Renal Profileon 09-02-2023 Albumin [Mass/Vol] 2.7 g/dL Low 3.2-5.0 [facility] Comment on above: Order Comment: 301-2 Performed By: #### L 500.3600 #### [facility] [address] [place], [address] BUN/CRE 21.0 RATIO High 10-20 [facility] Comment on above: Order Comment: 301-2 Performed By: #### L 500.3600 #### [facility] [address] [place], [address] CA,Total 8.9 mg/dL Normal 8.5-10.1 [facility] Comment on above: Order Comment: 301-2 Performed By: #### L 500.3600 #### [facility] [address] [place], [address] Chloride [Moles/Vol] 108 mmol/L High 98-107 [facility] Comment on above: Order Comment: 301-2 Performed By: #### L 500.3600 #### [facility] [address] [place], [address] CO2 [Moles/Vol] 30.0 mmol/L Normal 21.0-32.0 [facility] Comment on above: Order Comment: 301-2 Performed By: #### L 500.3600 #### [facility] [address] [place], [address] Creatinine [Mass/Vol] 1.00 mg/dL Normal 0.55-1.02 [facility] Comment on above: Order Comment: 301-2 Result Comment: The validity of the calculated GFR GFRAA in patients over 70 years has not been determined. Clinical correlation is essential. Performed By: #### L 500.3600 #### [facility] [address] [place], [address] EST GFR - AA 67 mL/min Normal >60 [facility] Comment on above: Order Comment: 301-2 Result Comment: Afri can [place] GFR Calc Performed By: #### [id number] #### [facility] [address] [place], [address] GFR/1.73 sq M.predicted among non-blacks MDRD (S/P/Bld) [Vol rate/Area] 56 mL/min/{1.73_m2} Low >60 [facility] Comment on above: Order Comment: 301-2 Result Comment: Non- GFR Calc Performed By: #### L [id number] #### [facility] [address] [place], [address] Glucose [Mass/Vol] 70 mg/dL Low 74-106 [facility] Comment on above: Order Comment: 301-2 Performed By: #### L [id number] #### [facility] [address] [place], [address] Phosphate [Mass/Vol] 3.6 mg/dL Normal 2.5-4.9 [facility] Comment on above: Order Comment: 301-2 Performed By: #### L [id number] #### [facility] [address] [place], [address] Potassium [Moles/Vol] 4.0 mmol/L Normal 3.5-5.1 [facility] Comment on above: Order Comment: 301-2 Performed By: #### [id number] #### [facility] [address] [place], [address] Sodium [Moles/Vol] 142 mmol/L Normal 136-145 [facility] Comment on above: Order Comment: 301-2 Performed By: #### [id number] #### [facility] [address] [place], [address] Urea nitrogen [Mass/Vol] 21 mg/dL High 7-18 [facility] Comment on above: Order Comment: 301-2 Performed By: #### [id number] #### [facility] [address] [place], [address] Basophil percentageOrdered B y: Kam Ocampo on 04-15-2023 Chloride [Moles/Vol] 107 mmol/L 98-107 [facility] Glucose [Mass/Vol] 86 mg/dL 74-106 [facility] Potassium [Moles/Vol] 3.9 mmol/L 3.5-5.1 [facility] Sodium [Moles/Vol] 143 mmol/L 136-145 [facility] Laboratory - Chemistry and C hemistry - challengeOrdered By: Kam Ocampo on 04-15-2023 CO2 [Moles/Vol] 32.0 mmol/L 21.0-32.0 [facility] Urea nitrogen/Creatinine [Mass ratio] 20.3 mg/mg 10-20 [facility] No Panel InformationOrdered By: Kam Ocampo on 04-15-2023 Estimated GFR (MDRD) Amer 78 mL/min >60 [facility] Comment on above: GFR Calc Estimated GFR (MDRD) Non-Af Amer 64 mL/min >60 [facility] Comment on above: Non- GFR Calc Serum or plasma calcium светлана urement (mass/volume)Ordered By: Kam Ocampo on 04-15-2023 Calcium [Mass/Vol] 8.5 mg/dL 8.5-10.1 [facility] Serum or plasma creatinine m easurement (mass/volume)Ordered By: Kam Ocampo on 04-15-2023 Creatinine [Mass/Vol] 0.89 mg/dL 0.55-1.02 [facility] Comment on above: The validity of the calculated GFR & GFRAA in patients over 70 years has not been determined. Clinical correlation is essential. Serum or plasma urea nitroge n measurement (mass/volume)Ordered By: Kam Ocampo on 04-15-2023 Urea nitrogen [Mass/Vol] 18 mg/dL 7-18 [facility] Thin prep Papanicolaou smear with manual screeningOrdered By: Kam Ocampo on 04-15-2023 Thin prep Papanicolaou smear with manual screening 4 5-15 [facility] Basophil percentageOrdered B y: Kam Ocampo on 03-11-2023 Bilirubin [Mass/Vol] 0.30 mg/dL 0.20-1.00 [facility] Comment on above: For patients on eltr ombopag therapy, use of Dimension Sula TBIL is not recommended. Chloride [Moles/Vol] 104 mmol/L 98-107 [facility] Glucose [Mass/Vol] 102 mg/dL 74-106 [facility] Comment on above: Fasting Glucose resu lt from 100 to 125 mg/dL suggests IMPAIRED HOMEOSTASIS per A.D.A. criteria. Hemoglobin (Bld) [Mass/Vol] 10.4 g/dL 12.0-15.0 [facility] Potassium [Moles/Vol] 4.1 mmol/L 3.5-5.1 [facility] Protein [Mass/Vol] 6.5 g/dL 6.4-8.2 [facility] Sodium [Moles/Vol] 140 mmol/L 136-145 [facility] WBC (Bld) [#/Vol] 4.9 10*3/uL 4.4-11.0 [facility] Determination of erythrocyte mean corpuscular volume (MCV)Ordered By: Kam Ocampo on 03-11-2023 MCV (RBC) [Entitic vol] 103.0 fL 81-99 [facility] Erythrocyte distribution wid th ratioOrdered By: Kam Ocampo on 03-11-2023 Erythrocyte distribution width (RBC) [Ratio] 14.4 % 11.6-14.6 [facility] Erythrocyte distribution wid th standard deviationOrdered By: Kam Ocampo on 03-11-2023 Erythrocyte distribution width (RBC) [Entitic vol] 54.2 fL 35.1-43.9 [facility] Hematocrit Auto (Bld) [Volum e fraction]Ordered By: Kam Ocampo on 03-11-2023 Hematocrit (Bld) [Volume fraction] 34.2 % 37-47 [facility] Laboratory - Chemistry and C hemistry - challengeOrdered By: Kam Ocampo on 03-11-2023 Albumin/Globulin [Mass ratio] 0.6 {ratio} 0.9-2.4 [facility] ALP [Catalytic activity/Vol] 62 U/L 45-117 [facility] ALT [Catalytic activity/Vol] 27 U/L 13-56 [facility] CO2 [Moles/Vol] 33.0 mmol/L 21.0-32.0 [facility] Globulin (S) [Mass/Vol] 4.0 g/dL 2.2-4.2 [facility] Urea nitrogen/Creatinine [Mass ratio] 21.7 mg/mg 10-20 [facility] Laboratory - Hematology and Cell countsOrdered By: Kam Ocampo on 03-11-2023 MCH (RBC) [Entitic mass] 31.3 pg 27.0-32.0 [facility] MCHC (RBC) [Mass/Vol] 30.4 g/dL 32-36 [facility] Platelets (Bld) [#/Vol] 169 10*3/uL 150-450 [facility] No Panel InformationOrdered By: Kam Ocampo on 03-11-2023 Estimated GFR (MDRD) Amer 79 mL/min >60 [facility] Comment on above: GFR Calc Estimated GFR (MDRD) Non-Af Amer 65 mL/min >60 [facility] Comment on above: Non- GFR Calc Platelet mean volume [place]-Ec ker (Bld) [Entitic vol]Ordered By: Kam Ocampo on 03-11-2023 Platelet mean volume (Bld) [Entitic vol] 9.4 fL 6.2-12.0 [facility] RBC Auto (Bld) [#/Vol]Ordere d By: Kam Ocampo on 03-11-2023 RBC (Bld) [#/Vol] 3.32 10*6/uL 4.2-5.4 [facility] Serum or plasma calcium светлана urement (mass/volume)Ordered By: Kam Ocampo on 03-11-2023 Calcium [Mass/Vol] 9.5 mg/dL 8.5-10.1 [facility] Serum or plasma creatinine m easurement (mass/volume)Ordered By: Kam Ocampo on 03-11-2023 Creatinine [Mass/Vol] 0.88 mg/dL 0.55-1.02 [facility] Comment on above: The validity of the calculated GFR & GFRAA in patients over 70 years has not been determined. Clinical correlation is essential. Serum or plasma urea nitroge n measurement (mass/volume)Ordered By: Kam Ocampo on 03-11-2023 Urea nitrogen [Mass/Vol] 19 mg/dL 7-18 [facility] Thin prep Papanicolaou smear with manual screeningOrdered By: Kam Ocampo on 03-11-2023 Thin prep Papanicolaou smear with manual screening 2.5 g/dL 3.2-5.0 [facility] Thin prep Papanicolaou smear with manual screening 19 U/L 15-37 [facility] Thin prep Papanicolaou smear with manual screening 3 5-15 [facility] Basophil percentageOrdered B y: Kam Ocampo on 02-19-2023 Chloride [Moles/Vol] 105 mmol/L 98-107 [facility] Glucose [Mass/Vol] 117 mg/dL 74-106 [facility] Comment on above: Fasting Glucose resu lt from 100 to 125 mg/dL suggests IMPAIRED HOMEOSTASIS per A.D.A. criteria. Potassium [Moles/Vol] 4.7 mmol/L 3.5-5.1 [facility] Sodium [Moles/Vol] 139 mmol/L 136-145 [facility] WBC (Bld) [#/Vol] 4.1 10*3/uL 4.4-11.0 [facility] Blood erythrocytes count (nu mber/volume)Ordered By: Kam Ocampo on 02-19-2023 RBC (Bld) [#/Vol] 3.55 10*6/uL 4.2-5.4 [facility] Blood hemoglobin measurement (mass/volume)Ordered By: Kam Ocampo on 02-19-2023 Hemoglobin (Bld) [Mass/Vol] 11.5 g/dL 12.0-15.0 [facility] Blood platelet mean volumeOr dered By: Kam Ocampo on 02-19-2023 Platelet mean volume (Bld) [Entitic vol] 9.3 fL 6.2-12.0 [facility] Determination of erythrocyte mean corpuscular volume (MCV)Ordered By: Kam Ocampo on 02-19-2023 MCV (RBC) [Entitic vol] 100.6 fL 81-99 [facility] Hematocrit Auto (Bld) [Volum e fraction]Ordered By: Kam Ocampo on 02-19-2023 Hematocrit (Bld) [Volume fraction] 35.7 % 37-47 [facility] Laboratory - Chemistry and C hemistry - challengeOrdered By: Kam Ocampo on 02-19-2023 CO2 [Moles/Vol] 29.0 mmol/L 21.0-32.0 [facility] Urea nitrogen/Creatinine [Mass ratio] 23.7 mg/mg 10-20 [facility] Laboratory - Hematology and Cell countsOrdered By: Kam Ocampo on 02-19-2023 Erythrocyte distribution width (RBC) [Entitic vol] 50.7 fL 35.1-43.9 [facility] Erythrocyte distribution width (RBC) [Ratio] 13.6 % 11.6-14.6 [facility] MCH (RBC) [Entitic mass] 32.4 pg 27.0-32.0 [facility] MCHC Auto (RBC) [Mass/Vol]Or dered By: Kam Ocampo on 02-19-2023 MCHC (RBC) [Mass/Vol] 32.2 g/dL 32-36 [facility] No Panel InformationOrdered By: Kam Ocampo on 02-19-2023 Estimated GFR (MDRD) Amer 78 mL/min >60 [facility] Comment on above: GFR Calc Estimated GFR (MDRD) Non-Af Amer 64 mL/min >60 [facility] Comment on above: Non- GFR Calc Platelets bldOrdered By: Aline Ocampo on 02-19-2023 Platelets (Bld) [#/Vol] 173 10*3/uL 150-450 [facility] Respiratory pathogens DNA an d RNA panel ALTHEA+probe (Resp)Ordered By: Kam Ocampo on 02-19-2023 Respiratory Panel (PCR) RSV B [facility] Respiratory Panel (PCR) RSV B [facility] Serum or plasma calcium светлана urement (mass/volume)Ordered By: Kam Ocampo on 02-19-2023 Calcium [Mass/Vol] 8.4 mg/dL 8.5-10.1 [facility] Serum or plasma creatinine m easurement (mass/volume)Ordered By: Kam Ocampo on 02-19-2023 Creatinine [Mass/Vol] 0.89 mg/dL 0.55-1.02 [facility] Comment on above: The validity of the calculated GFR & GFRAA in patients over 70 years has not been determined. Clinical correlation is essential. Serum or plasma urea nitroge n measurement (mass/volume)Ordered By: Kam Ocampo on 02-19-2023 Urea nitrogen [Mass/Vol] 21 mg/dL 7-18 [facility] Thin prep Papanicolaou smear with manual screeningOrdered By: Kam Ocampo on 02-19-2023 Thin prep Papanicolaou smear with manual screening 5 5-15 [facility] Basophil percentageOrdered B y: Kam Ocampo on 02-10-2023 WBC (Bld) [#/Vol] 4.7 10*3/uL 4.4-11.0 [facility] Blood erythrocytes count (nu mber/volume)Ordered By: Kam Ocampo on 02-10-2023 RBC (Bld) [#/Vol] 3.25 10*6/uL 4.2-5.4 [facility] Blood hemoglobin measurement (mass/volume)Ordered By: Kam Ocampo on 02-10-2023 Hemoglobin (Bld) [Mass/Vol] 10.9 g/dL 12.0-15.0 [facility] Blood platelet mean volumeOr dered By: Kam Ocampo on 02-10-2023 Platelet mean volume (Bld) [Entitic vol] 9.2 fL 6.2-12.0 [facility] Determination of erythrocyte mean corpuscular volume (MCV)Ordered By: Kam Ocampo on 02-10-2023 MCV (RBC) [Entitic vol] 103.4 fL 81-99 [facility] Hematocrit Auto (Bld) [Volum e fraction]Ordered By: Kam Ocampo on 02-10-2023 Hematocrit (Bld) [Volume fraction] 33.6 % 37-47 [facility] Laboratory - Hematology and Cell countsOrdered By: Kam Ocampo on 02-10-2023 Erythrocyte distribution width (RBC) [Entitic vol] 53.1 fL 35.1-43.9 [facility] Erythrocyte distribution width (RBC) [Ratio] 13.9 % 11.6-14.6 [facility] MCH (RBC) [Entitic mass] 33.5 pg 27.0-32.0 [facility] MCHC Auto (RBC) [Mass/Vol]Or dered By: Kam Ocampo on 02-10-2023 MCHC (RBC) [Mass/Vol] 32.4 g/dL 32-36 [facility] Platelets bldOrdered By: Aline Ocampo on 02-10-2023 Platelets (Bld) [#/Vol] 227 10*3/uL 150-450 [facility] Basophil percentageOrdered B y: Kam Ocampo on 01-27-2023 Bilirubin [Mass/Vol] 0.30 mg/dL 0.20-1.00 [facility] Comment on above: For patients on eltr ombopag therapy, use of Dimension Sula TBIL is not recommended. Chloride [Moles/Vol] 109 mmol/L 98-107 [facility] Glucose [Mass/Vol] 77 mg/dL 74-106 [facility] Potassium [Moles/Vol] 4.2 mmol/L 3.5-5.1 [facility] Protein [Mass/Vol] 6.2 g/dL 6.4-8.2 [facility] Sodium [Moles/Vol] 142 mmol/L 136-145 [facility] WBC (Bld) [#/Vol] 5.6 10*3/uL 4.4-11.0 [facility] Blood erythrocytes count (nu mber/volume)Ordered By: Kam Ocampo on 01-27-2023 RBC (Bld) [#/Vol] 3.10 10*6/uL 4.2-5.4 [facility] Blood hemoglobin measurement (mass/volume)Ordered By: Kam Ocampo on 01-27-2023 Hemoglobin (Bld) [Mass/Vol] 10.1 g/dL 12.0-15.0 [facility] Blood platelet mean volumeOr dered By: Kam Ocampo on 01-27-2023 Platelet mean volume (Bld) [Entitic vol] 9.2 fL 6.2-12.0 [facility] Determination of erythrocyte mean corpuscular volume (MCV)Ordered By: Kam Ocampo on 01-27-2023 MCV (RBC) [Entitic vol] 103.9 fL 81-99 [facility] Hematocrit Auto (Bld) [Volum e fraction]Ordered By: Kam Ocampo on 01-27-2023 Hematocrit (Bld) [Volume fraction] 32.2 % 37-47 [facility] Laboratory - Chemistry and C hemistry - challengeOrdered By: Kam Ocampo on 01-27-2023 ALP [Catalytic activity/Vol] 66 U/L 45-117 [facility] ALT [Catalytic activity/Vol] 29 U/L 13-56 [facility] CO2 [Moles/Vol] 30.0 mmol/L 21.0-32.0 [facility] Globulin (S) [Mass/Vol] 3.8 g/dL 2.2-4.2 [facility] Urea nitrogen/Creatinine [Mass ratio] 21.9 mg/mg 10-20 [facility] Laboratory - Hematology and Cell countsOrdered By: Kam Ocampo on 01-27-2023 Erythrocyte distribution width (RBC) [Entitic vol] 54.4 fL 35.1-43.9 [facility] Erythrocyte distribution width (RBC) [Ratio] 14.4 % 11.6-14.6 [facility] MCH (RBC) [Entitic mass] 32.6 pg 27.0-32.0 [facility] MCHC Auto (RBC) [Mass/Vol]Or dered By: Kam Ocampo on 01-27-2023 MCHC (RBC) [Mass/Vol] 31.4 g/dL [facility] No Panel InformationOrdered By: Kam Ocampo on 01-27-2023 Estimated GFR (MDRD) Amer 75 mL/min >60 [facility] Comment on above: GFR Calc Estimated GFR (MDRD) Non-Af Amer 62 mL/min >60 [facility] Comment on above: Non- GFR Calc Platelets bldOrdered By: Aline Ocampo on 01-27-2023 Platelets (Bld) [#/Vol] 168 10*3/uL 150-450 [facility] Serum or plasma albumin светлана urement (mass/volume)Ordered By: Kam Ocampo on 01-27-2023 Albumin [Mass/Vol] 2.4 g/dL 3.2-5.0 [facility] Serum or plasma albumin/glob ulin mass ratioOrdered By: Kam Ocampo on 01-27-2023 Albumin/Globulin [Mass ratio] 0.6 {ratio} 0.9-2.4 [facility] Serum or plasma calcium светлана urement (mass/volume)Ordered By: Kam Ocampo on 01-27-2023 Calcium [Mass/Vol] 8.5 mg/dL 8.5-10.1 [facility] Serum or plasma creatinine m easurement (mass/volume)Ordered By: Kam Ocampo on 01-27-2023 Creatinine [Mass/Vol] 0.92 mg/dL 0.55-1.02 [facility] Comment on above: The validity of the calculated GFR & GFRAA in patients over 70 years has not been determined. Clinical correlation is essential. Serum or plasma urea nitroge n measurement (mass/volume)Ordered By: Kam Ocampo on 01-27-2023 Urea nitrogen [Mass/Vol] 20 mg/dL 7-18 [facility] Thin prep Papanicolaou smear with manual screeningOrdered By: Kam Ocampo on 01-27-2023 Thin prep Papanicolaou smear with manual screening 18 U/L 15-37 [facility] Thin prep Papanicolaou smear with manual screening 3 5-15 [facility] Acid fast bacilli (AFB) cult ureOrdered By: Kam Ocampo on 12-02-2022 Mycobacterium sp identified Org specific cx Nom (Unsp spec) [facility] Thin prep Papanicolaou smear with manual screeningOrdered By: Kam Ocampo on 12-02-2022 Thin prep Papanicolaou smear with manual screening [facility] Acid fast bacilli (AFB) cult ureOrdered By: Kam Ocampo on 12-01-2022 Mycobacterium sp identified Org specific cx Nom (Unsp spec) [facility] Bacteria identified Respirat ory culture Nom (Unsp spec)Ordered By: Kam Ocampo on 12-01-2022 Respiratory Culture Diane albicans [facility] Gram stain for investigation of transfusion reactionOrdered By: Kam Ocampo on 12-01-2022 Microscopic observation Gram stain Nom (Unsp spec) [facility] Thin prep Papanicolaou smear with manual screeningOrdered By: Kam Ocampo on 12-01-2022 Thin prep Papanicolaou smear with manual screening [facility] Acid fast bacilli (AFB) cult ureOrdered By: Kam Ocampo on 11-28-2022 Mycobacterium sp identified Org specific cx Nom (Unsp spec) [facility] Qualitative QuantiFERON-TB g old in tube testOrdered By: Kam Ocampo on 11-28-2022 M. tuberculosis tuberculin stim IFN-g Ql (Bld) 0.09 IU/mL . [facility] Thin prep Papanicolaou smear with manual screeningOrdered By: Kam Ocampo on 11-28-2022 Thin prep Papanicolaou smear with manual screening [facility] Thin prep Papanicolaou smear with manual screening Comment . [facility] Comment on above: QuantiFERON-TB Gold Plus is a qualitative indirect test forM tuberculosis infection (including disease) and isintended for use in conjunction with risk assessment,radiography, and other medical and diagnostic evaluations.The QuantiFERON-TB Gold Plus result is determined bysubtracting the Nil value from either TB antigen (Ag)value. The Mitogen tube serves as a control for the test. Thin prep Papanicolaou smear with manual screening 0.08 IU/mL . [facility] Thin prep Papanicolaou smear with manual screening 0.09 IU/mL . [facility] Thin prep Papanicolaou smear with manual screening > 10.00 IU/mL . [facility] Thin prep Papanicolaou smear with manual screening Negative Negative [facility] Comment on above: No response to M tub erculosis antigens detected.Infection with M tuberculosis is unlikely, but high riskindividuals should be considered for additional testing(ATS/IDSA/CDC Clinical Practice Guidelines, 2017). Thereference range is an Antigen minus Nil result of <0.35IU/mL.The specimen received for QuantiFERON testing was incubatedby the ordering institution. Specific procedures outlinedin our Directory of Services and in the package insert forthe QuantiFERON Gold (In Tube) test must be followed toenable for proper stimulation of cells for the productionof interferon gamma. Chemiluminescence immunoassaymethodologyPerformed at: [facility] [address] [id number] Director: Radu Leal PhD, Phone: [phone] Basophil percentageOrdered B y: Kam Ocampo on 11-10-2022 Bilirubin [Mass/Vol] 0.50 mg/dL 0.20-1.00 [facility] Comment on above: For patients on eltr ombopag therapy, use of Dimension Sula TBIL is not recommended. Chloride [Moles/Vol] 105 mmol/L 98-107 [facility] Glucose [Mass/Vol] 88 mg/dL 74-106 [facility] Potassium [Moles/Vol] 4.5 mmol/L 3.5-5.1 [facility] Protein [Mass/Vol] 6.9 g/dL 6.4-8.2 [facility] Sodium [Moles/Vol] 141 mmol/L 136-145 [facility] WBC (Bld) [#/Vol] 9.3 10*3/uL 4.4-11.0 [facility] Blood erythrocytes count (nu mber/volume)Ordered By: Kam Ocampo on 11-10-2022 RBC (Bld) [#/Vol] 3.43 10*6/uL 4.2-5.4 [facility] Blood hemoglobin measurement (mass/volume)Ordered By: Kam Ocampo on 11-10-2022 Hemoglobin (Bld) [Mass/Vol] 11.3 g/dL 12.0-15.0 [facility] Blood platelet mean volumeOr dered By: Kam Ocampo on 11-10-2022 Platelet mean volume (Bld) [Entitic vol] 9.8 fL 6.2-12.0 [facility] Determination of erythrocyte mean corpuscular volume (MCV)Ordered By: Kam Ocampo on 11-10-2022 MCV (RBC) [Entitic vol] 107.3 fL 81-99 [facility] Comment on above: Delta: 101.3 on 10/11 10/01-1729 Hematocrit Auto (Bld) [Volum e fraction]Ordered By: Kam Ocampo on 11-10-2022 Hematocrit (Bld) [Volume fraction] 36.8 % 37-47 [facility] Laboratory - Chemistry and C hemistry - challengeOrdered By: Kam Ocampo on 11-10-2022 ALP [Catalytic activity/Vol] 68 U/L 45-117 [facility] ALT [Catalytic activity/Vol] 27 U/L 13-56 [facility] CO2 [Moles/Vol] 35.0 mmol/L 21.0-32.0 [facility] Globulin (S) [Mass/Vol] 4.0 g/dL 2.2-4.2 [facility] Urea nitrogen/Creatinine [Mass ratio] 28.0 mg/mg 10-20 [facility] Laboratory - Hematology and Cell countsOrdered By: Kam Ocampo on 11-10-2022 Erythrocyte distribution width (RBC) [Entitic vol] 56.2 fL 35.1-43.9 [facility] Erythrocyte distribution width (RBC) [Ratio] 14.5 % 11.6-14.6 [facility] MCH (RBC) [Entitic mass] 32.9 pg 27.0-32.0 [facility] MCHC Auto (RBC) [Mass/Vol]Or dered By: Kam Ocampo on 11-10-2022 MCHC (RBC) [Mass/Vol] 30.7 g/dL 32-36 [facility] Comment on above: Delta: 32.8 on 11/06-0 No Panel InformationOrdered By: Kam Ocampo on 11-10-2022 Estimated GFR (MDRD) Amer 56 mL/min >60 [facility] Comment on above: GFR Calc Estimated GFR (MDRD) Non-Af Amer 46 mL/min >60 [facility] Comment on above: Non- GFR Calc Platelets bldOrdered By: Aline Ocampo on 11-10-2022 Platelets (Bld) [#/Vol] 225 10*3/uL 150-450 [facility] Serum or plasma albumin светлана urement (mass/volume)Ordered By: Kam Ocampo on 11-10-2022 Albumin [Mass/Vol] 2.9 g/dL 3.2-5.0 [facility] Serum or plasma albumin/glob ulin mass ratioOrdered By: Kam Ocampo on 11-10-2022 Albumin/Globulin [Mass ratio] 0.7 {ratio} 0.9-2.4 [facility] Serum or plasma calcium светлана urement (mass/volume)Ordered By: Kam Ocampo on 11-10-2022 Calcium [Mass/Vol] 9.6 mg/dL 8.5-10.1 [facility] Serum or plasma creatinine m easurement (mass/volume)Ordered By: Kam Ocampo on 11-10-2022 Creatinine [Mass/Vol] 1.18 mg/dL 0.55-1.02 [facility] Comment on above: The validity of the calculated GFR & GFRAA in patients over 70 years has not been determined. Clinical correlation is essential. Serum or plasma urea nitroge n measurement (mass/volume)Ordered By: Kam Ocampo on 11-10-2022 Urea nitrogen [Mass/Vol] 33 mg/dL 7-18 [facility] Thin prep Papanicolaou smear with manual screeningOrdered By: Kam Ocampo on 11-10-2022 Thin prep Papanicolaou smear with manual screening 19 U/L 15-37 [facility] Thin prep Papanicolaou smear with manual screening 1 5-15 [facility] Absolute lymphocyte countOrd ered By: Yandel Matute on 11-06-2022 Lymphocytes Auto (Unsp spec) [#/Vol] 2.18 10*3/uL 0.83-4.51 [facility] Basophil percentageOrdered B y: Yandel Matute on 11-06-2022 Basophil percentage 0-5 SEEN /hpf 0-5 [facility] [place] Basophils/100 WBC (Bld) 0.4 % 0-1 [facility] Chloride [Moles/Vol] 102 mmol/L 98-107 [facility] Eosinophils/100 WBC (Bld) 1.6 % 0-5 [facility] Glucose [Mass/Vol] 99 mg/dL 74-106 [facility] Neutrophils (Bld) [#/Vol] 4.5 10*3/uL 2.0-7.7 [facility] Neutrophils/100 WBC (Bld) 60.8 % 47-70 [facility] Potassium [Moles/Vol] 4.2 mmol/L 3.5-5.1 [facility] Sodium [Moles/Vol] 137 mmol/L 136-145 [facility] WBC (Bld) [#/Vol] 7.4 10*3/uL 4.4-11.0 [facility] Basophil percentageOrdered B y: Kma Ocampo on 11-06-2022 Basophil percentage >100 SEEN /hpf 0-5 [facility] Bilirubin [Mass/Vol] 0.50 mg/dL 0.20-1.00 [facility] Comment on above: For patients on eltr ombopag therapy, use of Dimension [place] TBIL is not recommended. Chloride [Moles/Vol] 104 mmol/L 98-107 [facility] Glucose [Mass/Vol] 123 mg/dL 74-106 [facility] Comment on above: Fasting Glucose resu lt from 100 to 125 mg/dL suggests IMPAIRED HOMEOSTASIS per A.D.A. criteria. Potassium [Moles/Vol] 4.1 mmol/L 3.5-5.1 [facility] Protein [Mass/Vol] 7.8 g/dL 6.4-8.2 [facility] Sodium [Moles/Vol] 142 mmol/L 136-145 [facility] WBC (Bld) [#/Vol] 7.6 10*3/uL 4.4-11.0 [facility] Bilirubin Test strip Ql (U)O rdered By: Yandel Matute on 11-06-2022 Bilirubin Ql (U) Negative Negative [facility] Bilirubin Test strip Ql (U)O rdered By: Kam Ocampo on 11-06-2022 Bilirubin Ql (U) Negative Negative [facility] Blood erythrocytes count (nu mber/volume)Ordered By: Yandel Matute on 11-06-2022 RBC (Bld) [#/Vol] 3.19 10*6/uL 4.2-5.4 [facility] Blood erythrocytes count (nu mber/volume)Ordered By: Kam Ocampo on 11-06-2022 RBC (Bld) [#/Vol] 3.43 10*6/uL 4.2-5.4 [facility] Blood hemoglobin measurement (mass/volume)Ordered By: Yandel Matute on 11-06-2022 Hemoglobin (Bld) [Mass/Vol] 10.6 g/dL 12.0-15.0 [facility] Blood hemoglobin measurement (mass/volume)Ordered By: Kam Ocampo on 11-06-2022 Hemoglobin (Bld) [Mass/Vol] 11.4 g/dL 12.0-15.0 [facility] Blood lymphocytes/100 leukoc ytesOrdered By: Yandel Matute on 11-06-2022 Lymphocytes/100 WBC (Bld) 29.3 % 19-41 [facility] Blood monocytes/100 leukocyt esOrdered By: Yandel Matute on 11-06-2022 Monocytes/100 WBC (Bld) 7.4 % 0-10 [facility] Blood platelet mean volumeOr dered By: Yandel Matute on 11-06-2022 Platelet mean volume (Bld) [Entitic vol] 9.6 fL 6.2-12.0 [facility] Blood platelet mean volumeOr dered By: Kam Ocampo on 11-06-2022 Platelet mean volume (Bld) [Entitic vol] 9.3 fL 6.2-12.0 [facility] Culture, urineOrdered By: Dugan on 11-06-2022 Bacteria identified Cx Nom (U) Escherichia coli [facility] Bacteria identified Cx Nom (U) Escherichia coli [facility] Determination of erythrocyte mean corpuscular volume (MCV)Ordered By: Yandel Matute on 11-06-2022 MCV (RBC) [Entitic vol] 101.3 fL 81-99 [facility] Determination of erythrocyte mean corpuscular volume (MCV)Ordered By: Kam Ocampo on 11-06-2022 MCV (RBC) [Entitic vol] 102.0 fL 81-99 [facility] Hematocrit Auto (Bld) [Volum e fraction]Ordered By: Yandel Matute on 11-06-2022 Hematocrit (Bld) [Volume fraction] 32.3 % 37-47 [facility] Hematocrit Auto (Bld) [Volum e fraction]Ordered By: Kam Ocampo on 11-06-2022 Hematocrit (Bld) [Volume fraction] 35.0 % 37-47 [facility] INR in Blood by Coagulation assayOrdered By: Yandel Matute on 11-06-2022 INR Coag (Bld) [Relative time] 1.0 {INR} [facility] Ketones Test strip Ql (U)Ord ered By: Yandel Matute on 11-06-2022 Ketones Ql (U) Negative Negative [facility] Ketones Test strip Ql (U)Ord ered By: Kam Ocampo on 11-06-2022 Ketones Ql (U) Negative Negative [facility] Laboratory - Chemistry and C hemistry - challengeOrdered By: Yandel Matute on 11-06-2022 CO2 [Moles/Vol] 34.0 mmol/L 21.0-32.0 [facility] Urea nitrogen/Creatinine [Mass ratio] 23.9 mg/mg 10-20 [facility] Laboratory - Chemistry and C hemistry - challengeOrdered By: Kam Ocampo on 09-28-2023 ALP [Catalytic activity/Vol] 78 U/L 45-117 [facility] ALT [Catalytic activity/Vol] 33 U/L 13-56 [facility] CO2 [Moles/Vol] 35.0 mmol/L 21.0-32.0 [facility] Globulin (S) [Mass/Vol] 4.6 g/dL 2.2-4.2 [facility] Urea nitrogen/Creatinine [Mass ratio] 21.0 mg/mg 10-20 [facility] Laboratory - CoagulationOrde red By: Yandel Matute on 11-06-2022 aPTT Coag (Bld) [Time] 25.3 s 24.1-36.2 [facility] PT Coag (PPP) [Time] 13.1 s 11.7-14.9 [facility] Laboratory - Hematology and Cell countsOrdered By: Yandel Matute on 11-06-2022 Erythrocyte distribution width (RBC) [Entitic vol] 50.0 fL 35.1-43.9 [facility] Erythrocyte distribution width (RBC) [Ratio] 13.6 % 11.6-14.6 [facility] Immature granulocytes/100 WBC (Bld) 0.500 % 0.0-0.9 [facility] Comment on above: IG% - Immature Granu locytes (promyelocytes, myelocytes and metamyelocytes) > 1% indicates that a LEFT SHIFT is Present. MCH (RBC) [Entitic mass] 33.2 pg 27.0-32.0 [facility] Nucleated RBC/100 WBC (Bld) [Ratio] 0 % 0-5 [facility] Laboratory - Hematology and Cell countsOrdered By: Kam Ocampo on 11-06-2022 Erythrocyte distribution width (RBC) [Entitic vol] 51.1 fL 35.1-43.9 [facility] Erythrocyte distribution width (RBC) [Ratio] 13.7 % 11.6-14.6 [facility] MCH (RBC) [Entitic mass] 33.2 pg 27.0-32.0 [facility] MCHC Auto (RBC) [Mass/Vol]Or dered By: Yandel Matute on 11-06-2022 MCHC (RBC) [Mass/Vol] 32.8 g/dL 32-36 [facility] MCHC Auto (RBC) [Mass/Vol]Or dered By: Kam Ocampo on 11-06-2022 MCHC (RBC) [Mass/Vol] 32.6 g/dL 32-36 [facility] Mucus LM Ql (Urine sed)Order ed By: Yandel Matute on 11-06-2022 Mucus Ql (Urine sed) 0 SEEN /hpf [facility] Mucus LM Ql (Urine sed)Order ed By: Kam Ocampo on 11-06-2022 Mucus Ql (Urine sed) 0 SEEN /hpf [facility] Nitrite Test strip Ql (U)Ord ered By: Yandel Matute on 11-06-2022 Nitrite Ql (U) Negative Negative [facility] Nitrite Test strip Ql (U)Ord ered By: Kam Ocampo on 11-06-2022 Nitrite Ql (U) Negative Negative [facility] No Panel InformationOrdered By: Yandel Matute on 11-06-2022 Estimated Creatinine Clearance Calc 32.96 ml/min [facility] Estimated GFR (MDRD) Amer 78 mL/min >60 [facility] Comment on above: GFR Calc Estimated GFR (MDRD) Non-Af Amer 65 mL/min >60 [facility] Comment on above: Non- GFR Calc Troponin I High Sensitivity 6 pg/mL 3.0-54.0 [facility] Comment on above: Please Note: New Regi t Units and Gender Specific Reference Ranges. For more information see Policy Stat Procedure Sula High Sensitivity Troponin (TNIH) and attachments. No Panel InformationOrdered By: Kam Ocampo on 11-06-2022 Estimated GFR (MDRD) Amer 81 mL/min >60 [facility] Comment on above: GFR Calc Estimated GFR (MDRD) Non-Af Amer 67 mL/min >60 [facility] Comment on above: Non- GFR Calc Platelets bldOrdered By: Mehdi Matute on 11-06-2022 Platelets (Bld) [#/Vol] 240 10*3/uL 150-450 [facility] Platelets bldOrdered By: Aline Ocampo on 11-06-2022 Platelets (Bld) [#/Vol] 242 10*3/uL 150-450 [facility] Protein Test strip Ql (U)Ord ered By: Yandel Matute on 11-06-2022 Protein Ql (U) Negative Negative [facility] Protein Test strip Ql (U)Ord ered By: Kam Ocampo on 11-06-2022 Protein Ql (U) Negative Negative [facility] Serum or plasma albumin светлана urement (mass/volume)Ordered By: Kam Ocampo on 11-06-2022 Albumin [Mass/Vol] 3.2 g/dL 3.2-5.0 [facility] Serum or plasma albumin/glob ulin mass ratioOrdered By: Kam Ocampo on 11-06-2022 Albumin/Globulin [Mass ratio] 0.7 {ratio} 0.9-2.4 [facility] Serum or plasma calcium светлана urement (mass/volume)Ordered By: Yandel Matute on 11-06-2022 Calcium [Mass/Vol] 10.3 mg/dL 8.5-10.1 [facility] Serum or plasma calcium светлана urement (mass/volume)Ordered By: Kam Ocampo on 11-06-2022 Calcium [Mass/Vol] 10.1 mg/dL 8.5-10.1 [facility] Serum or plasma creatinine m easurement (mass/volume)Ordered By: Yandel Matute on 11-06-2022 Creatinine [Mass/Vol] 0.88 mg/dL 0.55-1.02 [facility] Comment on above: The validity of the calculated GFR & GFRAA in patients over 70 years has not been determined. Clinical correlation is essential. Serum or plasma creatinine m easurement (mass/volume)Ordered By: Kam Ocampo on 11-06-2022 Creatinine [Mass/Vol] 0.86 mg/dL 0.55-1.02 [facility] Comment on above: The validity of the calculated GFR & GFRAA in patients over 70 years has not been determined. Clinical correlation is essential. Serum or plasma urea nitroge n measurement (mass/volume)Ordered By: Yandel Matute on 11-06-2022 Urea nitrogen [Mass/Vol] 21 mg/dL 08-26 [facility] Serum or plasma urea nitroge n measurement (mass/volume)Ordered By: Kam Ocampo on 11-06-2022 Urea nitrogen [Mass/Vol] 18 mg/dL - [facility] Squamous epithelial cells de tection in urine sediment by light microscopyOrdered By: Yandel Matute on 11-06-2022 Epithelial cells.squamous LM Ql (Urine sed) 0 SEEN /hpf 5-10 [facility] Squamous epithelial cells de tection in urine sediment by light microscopyOrdered By: Kam Ocampo on 11-06-2022 Epithelial cells.squamous LM Ql (Urine sed) 0 SEEN /hpf 5-10 [facility] Thin prep Papanicolaou smear with manual screeningOrdered By: Yandel Matute on 11-06-2022 Thin prep Papanicolaou smear with manual screening 1 5-15 [facility] Thin prep Papanicolaou smear with manual screeningOrdered By: Kam Ocampo on 11-06-2022 Thin prep Papanicolaou smear with manual screening 18 U/L 15-37 [facility] Thin prep Papanicolaou smear with manual screening 3 5-15 [facility] Urine blood detectionOrdered By: Yandel Matute on 11-06-2022 RBC Ql (U) Negative Negative [facility] RBC Ql (U) 0 SEEN /hpf 0-5 [facility] Urine blood detectionOrdered By: Kam Ocampo on 11-06-2022 RBC Ql (U) 10 /ul Negative [facility] RBC Ql (U) 0 SEEN /hpf 0-5 [facility] Urine clarityOrdered By: Mehdi Matute on 11-06-2022 Clarity (U) Clear Clear [facility] Urine clarityOrdered By: Aline Ocampo on 11-06-2022 Clarity (U) Sl. Cloudy Clear [facility] Urine color determinationOrd ered By: Yandel Matute on 11-06-2022 Color (U) Yellow Yellow [facility] Urine color determinationOrd ered By: Kam Ocampo on 11-06-2022 Color (U) Yellow Yellow [facility] Urine glucose detectionOrder ed By: Yandel Matute on 11-06-2022 Glucose Ql (U) Normal mg/dl Normal [facility] Urine glucose detectionOrder ed By: Kam Ocampo on 11-06-2022 Glucose Ql (U) Normal mg/dl Normal [facility] Urine leukocyte esterase det ection by dipstickOrdered By: Yandel Matute on 11-06-2022 Leukocyte esterase Test strip Ql (U) 25 /ul Negative [facility] Urine leukocyte esterase det ection by dipstickOrdered By: Kam Ocampo on 11-06-2022 Leukocyte esterase Test strip Ql (U) 500 /ul Negative [facility] Urine pHOrdered By: Yandel butts on 11-06-2022 pH (U) 7.0 [pH] 5.0 - 8.0 [facility] Urine pHOrdered By: Kam barker on 11-06-2022 pH (U) 8.0 [pH] 5.0 - 8.0 [facility] Urine sediment bacteria coun t by microscopy (number/high power field)Ordered By: Yandel Matute on 11-06-2022 Bacteria LM.HPF (Urine sed) [#/Area] 0 /[HPF] None Seen [facility] Urine sediment bacteria coun t by microscopy (number/high power field)Ordered By: Kam Ocampo on 11-06-2022 Bacteria LM.HPF (Urine sed) [#/Area] 0 /[HPF] None Seen [facility] Urine specific gravity measu rementOrdered By: Yandel Matute on 11-06-2022 Specific gravity (U) [Rel density] 1.010 1.002-1.03 0 [facility] Urine specific gravity measu rementOrdered By: Kam Ocampo on 11-06-2022 Specific gravity (U) [Rel density] 1.010 1.002-1.03 0 [facility] Urobilinogen Auto test strip Ql (U)Ordered By: Yandel Matute on 11-06-2022 Urobilinogen Ql (U) Normal mg/dl Normal [facility] Urobilinogen Auto test strip Ql (U)Ordered By: Kam Ocampo on 11-06-2022 Urobilinogen Ql (U) Normal mg/dl Normal [facility] Basophil percentageOrdered B y: Hayden Diaz on 10-31-2022 Chloride [Moles/Vol] 108 mmol/L 98-107 [facility] Glucose [Mass/Vol] 95 mg/dL 74-106 [facility] Potassium [Moles/Vol] 3.8 mmol/L 3.5-5.1 [facility] Sodium [Moles/Vol] 141 mmol/L 136-145 [facility] WBC (Bld) [#/Vol] 7.6 10*3/uL 4.4-11.0 [facility] Blood erythrocytes count (nu mber/volume)Ordered By: Hayden Diaz on 10-31-2022 RBC (Bld) [#/Vol] 3.16 10*6/uL 4.2-5.4 [facility] Blood hemoglobin measurement (mass/volume)Ordered By: Hayden Diaz on 10-31-2022 Hemoglobin (Bld) [Mass/Vol] 10.5 g/dL 12.0-15.0 [facility] Blood platelet mean volumeOr dered By: Hayden Diaz on 10-31-2022 Platelet mean volume (Bld) [Entitic vol] 8.9 fL 6.2-12.0 [facility] Determination of erythrocyte mean corpuscular volume (MCV)Ordered By: Hayden Diaz on 10-31-2022 MCV (RBC) [Entitic vol] 103.5 fL 81-99 [facility] Hematocrit Auto (Bld) [Volum e fraction]Ordered By: Hayden Diaz on 10-31-2022 Hematocrit (Bld) [Volume fraction] 32.7 % 37-47 [facility] Laboratory - Chemistry and C hemistry - challengeOrdered By: Hayden Diaz on 10-31-2022 CO2 [Moles/Vol] 32.0 mmol/L 21.0-32.0 [facility] Urea nitrogen/Creatinine [Mass ratio] 23.8 mg/mg 10-20 [facility] Laboratory - Hematology and Cell countsOrdered By: Hayden Diaz on 10-31-2022 Erythrocyte distribution width (RBC) [Entitic vol] 51.9 fL 35.1-43.9 [facility] Erythrocyte distribution width (RBC) [Ratio] 13.4 % 11.6-14.6 [facility] MCH (RBC) [Entitic mass] 33.2 pg 27.0-32.0 [facility] MCHC Auto (RBC) [Mass/Vol]Or dered By: Hayden Diaz on 10-31-2022 MCHC (RBC) [Mass/Vol] 32.1 g/dL 32-36 [facility] No Panel InformationOrdered By: Hayden Diaz on 10-31-2022 Estimated Creatinine Clearance Calc 29.01 ml/min [facility] Estimated GFR (MDRD) Amer 99 mL/min >60 [facility] Comment on above: GFR Calc Estimated GFR (MDRD) Non-Af Amer 82 mL/min >60 [facility] Comment on above: Non- GFR Calc Platelets bldOrdered By: Yasmin Diaz on 10-31-2022 Platelets (Bld) [#/Vol] 195 10*3/uL 150-450 [facility] Serum or plasma calcium светлана urement (mass/volume)Ordered By: Hayden Diaz on 10-31-2022 Calcium [Mass/Vol] 8.6 mg/dL 8.5-10.1 [facility] Serum or plasma creatinine m easurement (mass/volume)Ordered By: Hayden Diaz on 10-31-2022 Creatinine [Mass/Vol] 0.72 mg/dL 0.55-1.02 [facility] Comment on above: The validity of the calculated GFR & GFRAA in patients over 70 years has not been determined. Clinical correlation is essential. Serum or plasma urea nitroge n measurement (mass/volume)Ordered By: Hayden Diaz on 10-31-2022 Urea nitrogen [Mass/Vol] 17 mg/dL 7-18 [facility] Thin prep Papanicolaou smear with manual screeningOrdered By: Hayden Diaz on 10-31-2022 Thin prep Papanicolaou smear with manual screening 1 5-15 [facility] Absolute lymphocyte countOrd ered By: Amalia Donahue on 10-30-2022 Lymphocytes Auto (Unsp spec) [#/Vol] 1.95 10*3/uL 0.83-4.51 [facility] Basophil percentageOrdered B y: Hayden Diaz on 10-30-2022 Basophil percentage 0 SEEN /hpf 0-5 [facility] Cholesterol [Mass/Vol] 94 mg/dL <200 [facility] Comment on above: <200 mg/dL Desirable 200-240 mg/dL Borderline >240 mg/dL High Risk Triglyceride [Mass/Vol] 72 mg/dL <199 [facility] Comment on above: The drugs N-Acetylcy steine and Metamizole may falsely depress this assay.Serum Triglycerides Reference Interval Normal <150 mg/dL Borderline high 150 - 199 mg/dL High 200 - 499 mg/dL Very High > or = 500 mg/dL Basophil percentageOrdered B y: Amalia Donahue on 10-30-2022 Basophils/100 WBC (Bld) 0.7 % 0-1 [facility] Chloride [Moles/Vol] 103 mmol/L 98-107 [facility] Eosinophils/100 WBC (Bld) 2.1 % 0-5 [facility] Glucose [Mass/Vol] 107 mg/dL 74-106 [facility] Comment on above: Fasting Glucose resu lt from 100 to 125 mg/dL suggests IMPAIRED HOMEOSTASIS per A.D.A. criteria. Neutrophils (Bld) [#/Vol] 3.2 10*3/uL 2.0-7.7 [facility] Neutrophils/100 WBC (Bld) 55.1 % 47-70 [facility] Potassium [Moles/Vol] 4.3 mmol/L 3.5-5.1 [facility] Comment on above: Slight Hemolysis, Re sult may be falsely increased. Sodium [Moles/Vol] 136 mmol/L 136-145 [facility] WBC (Bld) [#/Vol] 5.8 10*3/uL 4.4-11.0 [facility] Bilirubin Test strip Ql (U)O rdered By: Hayden Diaz on 10-30-2022 Bilirubin Ql (U) Negative Negative [facility] Blood erythrocytes count (nu mber/volume)Ordered By: Amalia Donahue on 10-30-2022 RBC (Bld) [#/Vol] 3.10 10*6/uL 4.2-5.4 [facility] Blood hemoglobin measurement (mass/volume)Ordered By: Amalia Donahue on 10-30-2022 Hemoglobin (Bld) [Mass/Vol] 10.1 g/dL 12.0-15.0 [facility] Blood lymphocytes/100 leukoc ytesOrdered By: Amalia Donahue on 10-30-2022 Lymphocytes/100 WBC (Bld) 33.7 % 19-41 [facility] Blood monocytes/100 leukocyt esOrdered By: Amalia Donahue on 10-30-2022 Monocytes/100 WBC (Bld) 8.1 % 0-10 [facility] Blood platelet mean volumeOr dered By: Amalia Donahue on 10-30-2022 Platelet mean volume (Bld) [Entitic vol] 9.2 fL 6.2-12.0 [facility] Determination of erythrocyte mean corpuscular volume (MCV)Ordered By: Amalia Donahue on 10-30-2022 MCV (RBC) [Entitic vol] 103.9 fL 81-99 [facility] Hematocrit Auto (Bld) [Volum e fraction]Ordered By: Amalia Donahue on 10-30-2022 Hematocrit (Bld) [Volume fraction] 32.2 % 37-47 [facility] INR in Blood by Coagulation assayOrdered By: Amalia Donahue on 10-30-2022 INR Coag (Bld) [Relative time] 1.0 {INR} [facility] Ketones Test strip Ql (U)Ord ered By: Hayden Diaz on 10-30-2022 Ketones Ql (U) Negative Negative [facility] Laboratory - Chemistry and C hemistry - challengeOrdered By: Amalia Donahue on 10-30-2022 CO2 [Moles/Vol] 32.0 mmol/L 21.0-32.0 [facility] Urea nitrogen/Creatinine [Mass ratio] 27.0 mg/mg 10-20 [facility] Laboratory - CoagulationOrde red By: Amalia Donahue on 10-30-2022 aPTT Coag (Bld) [Time] 27.1 s 24.1-36.2 [facility] PT Coag (PPP) [Time] 13.2 s 11.7-14.9 [facility] Laboratory - Hematology and Cell countsOrdered By: Amalia Donahue on 10-30-2022 Erythrocyte distribution width (RBC) [Entitic vol] 52.5 fL 35.1-43.9 [facility] Erythrocyte distribution width (RBC) [Ratio] 13.6 % 11.6-14.6 [facility] Immature granulocytes/100 WBC (Bld) 0.300 % 0.0-0.9 [facility] Comment on above: IG% - Immature Granu locytes (promyelocytes, myelocytes and metamyelocytes) > 1% indicates that a LEFT SHIFT is Present. MCH (RBC) [Entitic mass] 32.6 pg 27.0-32.0 [facility] Nucleated RBC/100 WBC (Bld) [Ratio] 0 % 0-5 [facility] MCHC Auto (RBC) [Mass/Vol]Or dered By: Amalia Donahue on 10-30-2022 MCHC (RBC) [Mass/Vol] 31.4 g/dL 32-36 [facility] Mucus LM Ql (Urine sed)Order ed By: Hayden Diaz on 10-30-2022 Mucus Ql (Urine sed) 0 SEEN /hpf [facility] Nitrite Test strip Ql (U)Ord ered By: Hayden Diaz on 10-30-2022 Nitrite Ql (U) Negative Negative [facility] No Panel InformationOrdered By: Amalia Donahue on 10-30-2022 Estimated Creatinine Clearance Calc 34.02 ml/min [facility] Estimated GFR (MDRD) Amer 81 mL/min >60 [facility] Comment on above: GFR Calc Estimated GFR (MDRD) Non-Af Amer 67 mL/min >60 [facility] Comment on above: Non- GFR Calc Troponin I High Sensitivity 5 pg/mL 3.0-54.0 [facility] Comment on above: Please Note: New Regi t Units and Gender Specific Reference Ranges. For more information see Policy Stat Procedure Sula High Sensitivity Troponin (TNIH) and attachments. Platelets bldOrdered By: Loan Donahue on 10-30-2022 Platelets (Bld) [#/Vol] 195 10*3/uL 150-450 [facility] Protein Test strip Ql (U)Ord ered By: Hayden Diaz on 10-30-2022 Protein Ql (U) Negative Negative [facility] Serum or plasma calcium светлана urement (mass/volume)Ordered By: Amalia Donahue on 10-30-2022 Calcium [Mass/Vol] 8.7 mg/dL 8.5-10.1 [facility] Serum or plasma cholesterol in HDL measurement (mass/volume)Ordered By: Hayden Diaz on 10-30-2022 Cholesterol in HDL [Mass/Vol] 33 mg/dL >40 [facility] Comment on above: The drugs N-Acetylcy steine and Metamizole may falsely depress this assay. Reference Range HDL <40 mg/dL Low HDL Cholesterol HDL >or= 60 mg/dL High HDL Cholesterol Serum or plasma cholesterol in VLDL measurement (mass/volume)Ordered By: Hayden Diaz on 10-30-2022 Cholesterol in VLDL [Mass/Vol] 14 mg/dL 5-40 [facility] Serum or plasma creatinine m easurement (mass/volume)Ordered By: Amalia Donahue on 10-30-2022 Creatinine [Mass/Vol] 0.85 mg/dL 0.55-1.02 [facility] Comment on above: The validity of the calculated GFR & GFRAA in patients over 70 years has not been determined. Clinical correlation is essential. Serum or plasma low density lipoprotein (LDL) cholesterol measurement (mass/volume)Ordered By: Hayden Diaz on 10-30-2022 Cholesterol in LDL [Mass/Vol] 47 mg/dL 0-130 [facility] Serum or plasma urea nitroge n measurement (mass/volume)Ordered By: Amalia Donahue on 10-30-2022 Urea nitrogen [Mass/Vol] 23 mg/dL 7-18 [facility] Squamous epithelial cells de tection in urine sediment by light microscopyOrdered By: Hayden Diaz on 10-30-2022 Epithelial cells.squamous LM Ql (Urine sed) 0 SEEN /hpf 5-10 [facility] Thin prep Papanicolaou smear with manual screeningOrdered By: Amalia Donahue on 10-30-2022 Thin prep Papanicolaou smear with manual screening 1 5-15 [facility] Urine blood detectionOrdered By: Hayden Diaz on 10-30-2022 RBC Ql (U) Negative Negative [facility] RBC Ql (U) 0 SEEN /hpf 0-5 [facility] Urine clarityOrdered By: Yasmin Diaz on 10-30-2022 Clarity (U) Clear Clear [facility] Urine color determinationOrd ered By: Hayden Diaz on 10-30-2022 Color (U) Yellow Yellow [facility] Urine glucose detectionOrder ed By: Hayden Diaz on 10-30-2022 Glucose Ql (U) Normal mg/dl Normal [facility] Urine leukocyte esterase det ection by dipstickOrdered By: Hayden Diaz on 10-30-2022 Leukocyte esterase Test strip Ql (U) Negative Negative [facility] Urine pHOrdered By: Reginaldo Diaz on 10-30-2022 pH (U) 8.0 [pH] 5.0 - 8.0 [facility] Urine sediment bacteria coun t by microscopy (number/high power field)Ordered By: Hayden Diaz on 10-30-2022 Bacteria LM.HPF (Urine sed) [#/Area] 0 /[HPF] None Seen [facility] Urine specific gravity measu rementOrdered By: Hayden Diaz on 10-30-2022 Specific gravity (U) [Rel density] 1.010 1.002-1.03 0 [facility] Urobilinogen Auto test strip Ql (U)Ordered By: Hayden Diaz on 10-30-2022 Urobilinogen Ql (U) Normal mg/dl Normal [facility] Whole blood hemoglobin A1c/t otal hemoglobin ratio (mass fraction)Ordered By: Hayden Diaz on 10-30-2022 HbA1c (Bld) [Mass fraction] 5.5 % 3.8-5.6 [facility] Comment on above: Normal < 5.7 % Predi abetic 5.7 - 6.4 % Diabetic >or= 6.5 % Please note range changes. Office Visit (Cardiology)on 10-27-2022 Follow-up visit Diagnoses/Problems Assessed CAD (coronary artery disease) (414.00) (I25.10) Syncope (780.2) (R55) Orders CAD (coronary artery disease) Changed: From Isosorbide Mononitrate ER 60 MG Oral Tablet Extended Release 24 Hour TAKE 1 TABLET ONCE DAILY To Isosorbide Mononitrate ER 30 MG Oral Tablet Extended Release 24 Hour Take 1 tablet by mouth daily Electrocardiogram 12 Lead; Status:Active; Requested for:[id number]; Osteoporosis Stop: Oscal 500/200 D-3 TABS Unlinked Stop: Iron 325 MG TABS History of Present Illness Mrs Judge is an 87 year old female with anemia, mitral regurg, rheumatic fever as a child, hypothyroidism, hypertension, hyperlipidemia, CA,m CAD, CABG and then an angioplasty after CABG, carotid artery disease, CVA, CKD, chronic colitis, osteoporosis, insomnia and peripheral neuropathy, here for an acute visit for a syncopal event. She reports that she was admitted to the hospital for pneumonia with respiratory failure for 7 days. She is now under going rehab in [facility] and is now on continuous O2. She [...] by Problem List Migration; 2012-04-06; Moved to [facility] Jan 01 2013 4:07PM Medicare annual wellness [...] Non-Q-wave Myocardial Infarction - Initial Care (New [place]) (410.71) Added by Problem List Migration; 2012-08-06 History of Arthritis (V13.4) History of Atherosclerotic heart disease of [place] coronary artery with unspecified angina pectoris (414.01,413.9) [...] by Proble (more content not included)... Normal S B E BASIC METABOLIC PANELon 09-0 Anion gap [Moles/Vol] -2 mmol/L Low 3-13 [facility] Comment on above: Performed By: #### L [id number] ####Emergency Room Clerk: REINA FARIA ([id number])[facility])[address] [place] [address] Calcium [Mass/Vol] 8.5 mg/dL Normal 8.4-10.4 [facility] Comment on above: Performed By: #### L [id number] ####Emergency Room Clerk: REINA FARIA ([id number])[facility] ([facility])[address] Chloride [Moles/Vol] 102 mmol/L Normal 98-107 [facility] Comment on above: Performed By: #### L [id number] ####Emergency Room Clerk: REINA FARIA ([id number])[facility] ([facility])[address] CO2 [Moles/Vol] 37 mmol/L High 22-30 [facility] Comment on above: Performed By: #### L [id number] ####Emergency Room Clerk: REINA FARIA ([id number])[facility] ([facility])[address] [place] [address] Creatinine [Mass/Vol] 0.71 mg/dL Normal 0.52-1.04 [facility] Comment on above: Performed By: #### L [id number] ####Emergency Room Clerk: REINA FARIA ([id number])[facility] GLOMERULAR FILTRATION RATE ML/MIN/1.73 SQ M.PREDICTED 82.9 mL/min/1.73m*2 Normal >60.0 [facility] Comment on above: Result Comment: Calc ulation based on the Chronic Kidney Disease Epidemiology Collaboration (CKD-EPI) equation refit without adjustment for race Performed By: #### L [id number] ####Emergency Room Clerk: REINA FARIA ([id number])[facility] Glucose [Mass/Vol] 99 mg/dL Normal 70-100 [facility] Comment on above: Performed By: #### L [id number] ####Emergency Room Clerk: REINA FARIA ([id number])[facility] ([facility])[address] Potassium [Moles/Vol] 4.0 mmol/L Normal 3.5-5.1 [facility] Comment on above: Performed By: #### L [id number] ####Emergency Room Clerk: REINA FARIA ([id number])[facility] ([facility])[address] Sodium [Moles/Vol] 137 mmol/L Normal 135-145 [facility] Comment on above: Performed By: #### L [id number] ####Emergency Room Clerk: REINA FARIA ([id number])[facility] Urea nitrogen [Mass/Vol] 15 mg/dL Normal 7-17 [facility] Comment on above: Performed By: #### L [id number] ####Emergency Room Clerk: REINA FARIA ([id number])[facility] ([facility])[address] Basic metabolic 1998 panelon 10-16-2022 Anion gap [Moles/Vol] -2 mmol/L Low 3 - 13 mmol/L [facility] Calcium [Mass/Vol] 8.5 mg/dL 8.4 - 10. 4 mg/dL [facility] Chloride [Moles/Vol] 102 mmol/L 98 - 10 7 mmol/L [facility] CO2 [Moles/Vol] 37 mmol/L High 22 - 30 mmol/L [facility] Creatinine [Mass/Vol] 0.71 mg/dL 0.52 - 1.04 mg/dL [facility] GFR/1.73 sq M.predicted MDRD (S/P/Bld) [Vol rate/Area] 82.9 mL/min/{1.73_m2} - PINF [facility] Comment on above: Calculation based on the Chronic Kidney Disease Epidemiology Collaboration (CKD-EPI) equation refit without adjustment for race Glucose [Mass/Vol] 99 mg/dL 70 - 100 mg/dL [facility] Interpretation and review of laboratory results Abnormal [facility] Potassium [Moles/Vol] 4.0 mmol/L 3.5 - 5.1 mmol/L [facility] Sodium [Moles/Vol] 137 mmol/L 135 - 145 mmol/L [facility] Urea nitrogen [Mass/Vol] 15 mg/dL 7 - 17 mg/dL [facility] CARECOORDon 10-16-2022 CARECOORD Patient Choice Patient Name: KATHERINE JUDGE Date of : 1935 All Providers Sent Referral Name[facility] Phone: [phone] Address: [address] [id number] Name: [facility] Phone: [phone] Address: [address] [place], [place] [address] Name: [facility] Address: [address] [place], [place] [id number] Normal [facility] CARECOORD Discharge med list transmitted to [facility] via Careport per TCC request. [id number] was entered into [facility] for the SNF- Facility is aware. [facility] CBC W Auto Differential pane l (Bld)on 10-16-2022 Basophils (Bld) [#/Vol] 0.0 10*3/uL 0.0 - 0.2 10*3/uL [facility] Basophils/100 WBC (Bld) 0.8 % 0.0 - 2.0 % [facility] Eosinophils (Bld) [#/Vol] 0.2 10*3/uL 0.0 - 0.5 10*3/uL [facility] Eosinophils/100 WBC (Bld) 4.6 % 1.0 - 6.0 % [facility] Erythrocyte distribution width (RBC) [Ratio] 13.4 % 11.5 - 14.5 % [facility] Hematocrit (Bld) [Volume fraction] 32.8 % Low 35.0 - 47.0 % [facility] Hemoglobin (Bld) [Mass/Vol] 11.1 g/dL Low 11.7 - 16.0 g/dL [facility] Interpretation and review of laboratory results Abnormal [facility] Lymphocytes (Bld) [#/Vol] 1.5 10*3/uL 1.0 - 4.3 10*3/uL [facility] Lymphocytes/100 WBC (Bld) 28.1 % 20.0 - 40.0 % [facility] MCH (RBC) [Entitic mass] 34.3 pg High 26.0 - 34.0 pg [facility] MCHC (RBC) [Mass/Vol] 33.8 % 32.0 - 36.0 % [facility] MCV (RBC) [Entitic vol] 101.5 fL High 80.0 - 98.0 fL [facility] Monocytes (Bld) [#/Vol] 0.5 10*3/uL 0.0 - 0.8 10*3/uL [facility] Monocytes/100 WBC (Bld) 9.7 % 2.0 - 10.0 % [facility] Neutrophils (Bld) [#/Vol] 3.1 10*3/uL 1.8 - 7.0 10*3/uL [facility] Neutrophils/100 WBC (Bld) 56.8 % 40.0 - 80.0 % [facility] Nucleated RBC/100 WBC (Bld) [Ratio] 0.0 % [facility] Platelet mean volume (Bld) [Entitic vol] 6.9 fL Low 7.4 - 12.4 fL [facility] Platelets (Bld) [#/Vol] 232 10*3/uL 140 - 440 10*3/uL [facility] RBC (Bld) [#/Vol] 3.23 10*6/uL Low 3.8 - 5.20 10*6/uL [facility] WBC (Bld) [#/Vol] 5.5 10*3/uL 3.6 - 10.7 10*3/uL [facility] CBC WITH AUTO DIFFERENTIALon 10-16-2022 Basophils (Bld) [#/Vol] 0.0 10*3/uL Normal 0.0-0.2 [facility] Comment on above: Performed By: #### L [id number] #### Emergency Room Clerk: REINA FARIA ([id number]) [facility] [address] Basophils/100 WBC (Bld) 0.8 % Normal 0.0-2.0 [facility] Comment on above: Performed By: #### L [id number] #### Emergency Room Clerk: REINA FARIA ([id number]) [facility] [address] [place] [address] [place] Eosinophils (Bld) [#/Vol] 0.2 10*3/uL Normal 0.0-0.5 [facility] Comment on above: Performed By: #### L [id number] #### Emergency Room Clerk: REINA FARIA ([id number]) [facility] [address] [place] [address] [place] Eosinophils/100 WBC (Bld) 4.6 % Normal 1.0-6.0 [facility] Comment on above: Performed By: #### L [id number] #### Emergency Room Clerk: REINA FARIA ([id number]) [facility] ([facility] [address] [place] [address] [place] Erythrocyte distribution width (RBC) [Ratio] 13.4 % Normal 11.5-14.5 [facility] Comment on above: Performed By: #### L [id number] #### Emergency Room Clerk: REINA FARIA ([id number]) [facility] [address] ERYTHROCYTE MEAN CORPUSCULAR HEMOGLOBIN CONCENTRATION (G/DL) BY AUTOMATED 33.8 % Normal 32.0-36.0 [facility] Comment on above: Performed By: #### L [id number] #### Emergency Room Clerk: REINA FARIA ([id number]) [facility] ([facility]) [address] Hematocrit (Bld) [Volume fraction] 32.8 % Low 35.0-47.0 [facility] Comment on above: Performed By: #### L [id number] #### Emergency Room Clerk: REINA FARIA ([id number]) [facility] ([facility]) [address] Hemoglobin (Bld) [Mass/Vol] 11.1 g/dL Low 11.7-16.0 [facility] Comment on above: Performed By: #### L [id number] #### Emergency Room Clerk: REINA FARIA ([id number]) [facility] ([facility]) [address] Lymphocytes (Bld) [#/Vol] 1.5 10*3/uL Normal 1.0-4.3 [facility] Comment on above: Performed By: #### L [id number] #### Emergency Room Clerk: REINA FARIA ([id number]) [facility] ([facility]) [address] Lymphocytes/100 WBC (Bld) 28.1 % Normal 20.0-40.0 [facility] Comment on above: Performed By: #### L [id number] #### Emergency Room Clerk: REINA FARIA ([id number]) [facility] ([facility]) [address] MCH (RBC) [Entitic mass] 34.3 pg High 26.0-34.0 [facility] Comment on above: Performed By: #### L [id number] #### Emergency Room Clerk: REINA FARIA ([id number]) [facility] ([facility]) [address] MCV (RBC) [Entitic vol] 101.5 fL High 80.0-98.0 [facility] Comment on above: Performed By: #### L [id number] #### Emergency Room Clerk: REINA FARIA ([id number]) [facility] [address] Monocytes (Bld) [#/Vol] 0.5 10*3/uL Normal 0.0-0.8 [facility] Comment on above: Performed By: #### L [id number] #### Emergency Room Clerk: REINA FARIA ([id number]) [facility] [address] Monocytes/100 WBC (Bld) 9.7 % Normal 2.0-10.0 [facility] Comment on above: Performed By: #### L [id number] #### Emergency Room Clerk: REINA FARIA ([id number]) [facility] [address] [place] [address] [place] Neutrophils (Bld) [#/Vol] 3.1 10*3/uL Normal 1.8-7.0 [facility] Comment on above: Performed By: #### L [id number] #### Emergency Room Clerk: REINA FARIA ([id number]) [facility] [address] [place] [address] [place] Neutrophils/100 WBC (Bld) 56.8 % Normal 40.0-80.0 [facility] Comment on above: Performed By: #### L [id number] #### Emergency Room Clerk: REINA FARIA ([id number]) [facility] [address] [place] [address] [place] NRBC (PER 100 WBCS) BY AUTOMATED COUNT 0.0 /100 WBCs Normal 0.0-2.0 [facility] Comment on above: Performed By: #### L [id number] #### Emergency Room Clerk: REINA [id number]) [facility] ([facility]) [address] Platelet mean volume (Bld) [Entitic vol] 6.9 fL Low 7.4-12.4 [facility] Comment on above: Performed By: #### L [id number] #### Emergency Room Clerk: REINA BIENVENIDO ([id number]) [facility] ([facility]) [address] PLATELETS (10*3/UL) IN BLOOD AUTOMATED COUNT 232 10*3/uL Normal 140-440 [facility] Comment on above: Performed By: #### L [id number] #### Emergency Room Clerk: REINA PEREZDayaGREGORY ([id number]) [facility] [address] RBC (Bld) [#/Vol] 3.23 10*6/uL Low 3.8-5.20 [facility] Comment on above: Performed By: #### L [id number] #### Emergency Room Clerk: REINA PEREZDayaGREGORY ([id number]) [facility] [address] WBC (Bld) [#/Vol] 5.5 10*3/uL Normal 3.6-10.7 [facility] Comment on above: Performed By: #### L [id number] #### Emergency Room Clerk: REINA PEREZDayaGREGORY ([id number]) [facility] [address] SARS-CoV-2 (COVID-19) Ag IA. rapid Ql (Resp)Ordered By: Lala Barber on 10-16-2022 Interpretation and review of laboratory results Normal [facility] SARS-CoV-2 AntigenOrdered By : Lala Barber on 10-16-2022 SARS-CoV-2 (COVID-19) Ag IA.rapid Ql (Resp) Negative Negative [facility] Comment on above: A negative result do es not rule out the possibility of SARS-CoV-2 infection. NAAT-based methods should be considered for symptomatic patients presenting greater than seven days after onset of symptoms. Method: Lateral flow immunoassay. Fact sheets for healthcare providers and patients can be found at the following sites: https://www.fda.gov/media/141648/download https://www.[employer].gov/media/695129/download Basic metabolic 1998 panelon 10-15-2022 Anion gap [Moles/Vol] 1 mmol/L Low 3 - 13 mmol/L [facility] Calcium [Mass/Vol] 8.3 mg/dL Low 8.4 - 10. 4 mg/dL [facility] Chloride [Moles/Vol] 103 mmol/L 98 - 10 7 mmol/L [facility] CO2 [Moles/Vol] 35 mmol/L High 22 - 30 mmol/L [facility] Creatinine [Mass/Vol] 0.61 mg/dL 0.52 - 1.04 mg/dL [facility] GFR/1.73 sq M.predicted MDRD (S/P/Bld) [Vol rate/Area] 87.2 mL/min/{1.73_m2} - PINF [facility] Comment on above: Calculation based on the Chronic Kidney Disease Epidemiology Collaboration (CKD-EPI) equation refit without adjustment for race Glucose [Mass/Vol] 106 mg/dL High 70 - 100 mg/dL [facility] Interpretation and review of laboratory results Abnormal [facility] Potassium [Moles/Vol] 4.2 mmol/L 3.5 - 5.1 mmol/L [facility] Sodium [Moles/Vol] 140 mmol/L 135 - 145 mmol/L [facility] Urea nitrogen [Mass/Vol] 11 mg/dL 7 - 17 mg/dL [facility] CARECOORDon 10-15-2022 CARECOKWESI Spoke with Lesley at [facility] & they can accept pt on 10/16. Notified pt & she asked TCC to follow up with her son. Notified son & he is agreeable.Notified attending, RN & FUNERAL DIRECTOR/EMBALMER via secure chat. Normal [facility] CBC W Auto Differential pane l (Bld)on 10-15-2022 Basophils (Bld) [#/Vol] 0.0 10*3/uL 0.0 - 0.2 10*3/uL [facility] Basophils/100 WBC (Bld) 0.6 % 0.0 - 2.0 % [facility] Eosinophils (Bld) [#/Vol] 0.2 10*3/uL 0.0 - 0.5 10*3/uL [facility] Eosinophils/100 WBC (Bld) 2.2 % 1.0 - 6.0 % [facility] Erythrocyte distribution width (RBC) [Ratio] 13.6 % 11.5 - 14.5 % [facility] Hematocrit (Bld) [Volume fraction] 32.4 % Low 35.0 - 47.0 % [facility] Hemoglobin (Bld) [Mass/Vol] 10.8 g/dL Low 11.7 - 16.0 g/dL [facility] Interpretation and review of laboratory results Abnormal [facility] Lymphocytes (Bld) [#/Vol] 1.2 10*3/uL 1.0 - 4.3 10*3/uL [facility] Lymphocytes/100 WBC (Bld) 17.3 % Low 20.0 - 40.0 % [facility] MCH (RBC) [Entitic mass] 34.1 pg High 26.0 - 34.0 pg [facility] MCHC (RBC) [Mass/Vol] 33.5 % 32.0 - 36.0 % [facility] MCV (RBC) [Entitic vol] 101.6 fL High 80.0 - 98.0 fL [facility] Monocytes (Bld) [#/Vol] 0.6 10*3/uL 0.0 - 0.8 10*3/uL [facility] Monocytes/100 WBC (Bld) 8.5 % 2.0 - 10.0 % [facility] Neutrophils (Bld) [#/Vol] 5.0 10*3/uL 1.8 - 7.0 10*3/uL [facility] Neutrophils/100 WBC (Bld) 71.4 % 40.0 - 80.0 % [facility] Nucleated RBC/100 WBC (Bld) [Ratio] 0.0 % [facility] Platelet mean volume (Bld) [Entitic vol] 7.0 fL Low 7.4 - 12.4 fL [facility] Platelets (Bld) [#/Vol] 223 10*3/uL 140 - 440 10*3/uL [facility] RBC (Bld) [#/Vol] 3.18 10*6/uL Low 3.8 - 5.20 10*6/uL [facility] WBC (Bld) [#/Vol] 7.1 10*3/uL 3.6 - 10.7 10*3/uL [facility] Progress Noteon 10-15-2022 Progress Note Nutrition Assessment [...] assess Fluid Accumulation: No significant fluid accumulation Nut Tightener Strength: Not Performed Nutrition Assessment: Pt is very pleasant, appeared in no distress this afternoon with visitor at bedside. Pt's diet was advanced to solids today- GI [place], low fiber. Pt reported that she ordered [...] (kg): 49.4 kg Total Energy Requirements (kcals/day): 7416-9727 (30-35 kcal/kg CBW) Weight Used for Protein [...] 110# UBW) % Weight Change (Calculated): -4.5 [place] Body Weight (lbs) (Calculated): 100 lbs [place] Body Weight (Kg) (Calculated): 45 kg % [place] Body Weight (Calculated): 105 % BMI (kg/m2) [...] Oral Nutrition Supplement Brittni Javed RD Contact: *[phone] or via Secure Chat [facility] Basic metabolic 1998 panelon 10-14-2022 Anion gap [Moles/Vol] -1 mmol/L Low 3 - 13 mmol/L [facility] Calcium [Mass/Vol] 8.0 mg/dL Low 8.4 - 10. 4 mg/dL [facility] Chloride [Moles/Vol] 108 mmol/L High 98 - 10 7 mmol/L [facility] [employer] CO2 [Moles/Vol] 33 mmol/L High 22 - 30 mmol/L [facility] [employer] Creatinine [Mass/Vol] 0.71 mg/dL 0.52 - 1.04 mg/dL [facility] GFR/1.73 sq M.predicted MDRD (S/P/Bld) [Vol rate/Area] 82.9 mL/min/{1.73_m2} - PINF [facility] Comment on above: Calculation based on the Chronic Kidney Disease Epidemiology Collaboration (CKD-EPI) equation refit without adjustment for race Glucose [Mass/Vol] 92 mg/dL 70 - 100 mg/dL [facility] Interpretation and review of laboratory results Abnormal [facility] Potassium [Moles/Vol] 4.2 mmol/L 3.5 - 5.1 mmol/L [facility] Sodium [Moles/Vol] 139 mmol/L 135 - 145 mmol/L [facility] [employer] Urea nitrogen [Mass/Vol] 15 mg/dL 7 - 17 mg/dL [facility] CARECOORDon 10-14-2022 [facility] Care Managment [facility] Assessment Date: 10/14/2022 Patient Name: Katherine Judge : 1935 Patient Information Source of Information: Patient Cognition/Language: WFL - Within Functional Limits Permission given to speak with patient sales representative business courses/caregiver as indicated: Yes (Ganga Judge, son, ) Confirmation of Payer with patient/family: Yes Payer Name: Medicare : No (Spouse is a [place]. Made referral to [employer]) Confirmation of [...] Living Prescription Coverage: Yes Pharmacy Used: [facility] in [place] Medication Management: Independent Transportation/Shopping: Independent [...] Additional Information: Chart reviewed. Patient admitted to [facility] for treatment of Proctocolitis. Full liquid diet. PT/OT recommends SNF. Met with patient at bedside. Explained role. She is very pleasant. 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 Reports her son is helpful and lives 20 minutes away. Independent with adls. She does not drive. +PCP, +RX cov, +DME. Discussed SNF. Patient interested. But, wants to discuss with son first. Served Medicare Choice listing. No insurance authorization required to admit to SNF. DC plan: TBD Home with Home care vs SNF Tasked RAGINI perez to follow Remy Whitney RN Normal [facility] CBC W Auto Differential pane l (Bld)Ordered By: Chaya Cook on 10-14-2022 Basophils (Bld) [#/Vol] 0.1 10*3/uL 0.0 - 0.2 10*3/uL [facility] Basophils/100 WBC (Bld) 1.0 % 0.0 - 2.0 % [facility] Eosinophils (Bld) [#/Vol] 0.2 10*3/uL 0.0 - 0.5 10*3/uL [facility] Eosinophils/100 WBC (Bld) 3.3 % 1.0 - 6.0 % [facility] Erythrocyte distribution width (RBC) [Ratio] 13.4 % 11.5 - 14.5 % [facility] Hematocrit (Bld) [Volume fraction] 31.0 % Low 35.0 - 47.0 % [facility] Hemoglobin (Bld) [Mass/Vol] 10.4 g/dL Low 11.7 - 16.0 g/dL [facility] Interpretation and review of laboratory results Abnormal [facility] Lymphocytes (Bld) [#/Vol] 1.4 10*3/uL 1.0 - 4.3 10*3/uL [facility] Lymphocytes/100 WBC (Bld) 22.5 % 20.0 - 40.0 % [facility] MCH (RBC) [Entitic mass] 34.3 pg High 26.0 - 34.0 pg [facility] MCHC (RBC) [Mass/Vol] 33.7 % 32.0 - 36.0 % [facility] MCV (RBC) [Entitic vol] 101.5 fL High 80.0 - 98.0 fL [facility] Monocytes (Bld) [#/Vol] 0.6 10*3/uL 0.0 - 0.8 10*3/uL [facility] Monocytes/100 WBC (Bld) 9.9 % 2.0 - 10.0 % [facility] Neutrophils (Bld) [#/Vol] 4.0 10*3/uL 1.8 - 7.0 10*3/uL [facility] Neutrophils/100 WBC (Bld) 63.3 % 40.0 - 80.0 % [facility] Nucleated RBC/100 WBC (Bld) [Ratio] 0.0 % [facility] Platelet mean volume (Bld) [Entitic vol] 7.0 fL Low 7.4 - 12.4 fL [facility] Platelets (Bld) [#/Vol] 213 10*3/uL 140 - 440 10*3/uL [facility] RBC (Bld) [#/Vol] 3.05 10*6/uL Low 3.8 - 5.20 10*6/uL [facility] WBC (Bld) [#/Vol] 6.3 10*3/uL 3.6 - 10.7 10*3/uL [facility] Progress Noteon 10-14-2022 Progress Note Occupational Therapy Facility/Department: [facility] 2E Occupational Therapy Initial Evaluation NAME: Katherine Judge : 1935 Date of Service: 10/14/2022 Discharge Recommendations: Group Home Facility OT Equipment Recommendations Equipment Needed: No [...] Additional Comments: Pt reports she has been "carrying around" SPC since fall, but reports independent with [...] assistance Functional Mobility Comments: Pt ambualting with [employer] and min A for balance short distance to/from [facility]. No true LOB noted however pt demo [...] LE Dress (more content not included)... Normal [facility] XR Abdomen Single viewon FINDINGS/IMPRESSION: Limitations: Somewhat [...] Electronically Signed Date/Time: 10/14/2022 12:15 PM EDT [facility] Patient Name: KATHERINE SIMON : 1935 Exam Date/Time: 10/14/2022 08:50 Procedure: XR ABDOMEN 1 VIEW Ordering Provider: VINES JEFFREY Reason For Exam: CONSTIPATION CLINICAL INDICATION: Constipation. TECHNIQUE: AP view of the abdomen COMPARISON: Chest radiographs previous day, CT 10/10/2022 [facility] Frances Norton MD - 10/14/2022 [...] Electronically Signed Date/Time: 10/14/2022 12:15 PM EDT [facility] Radiology Study observation (narrative) [facility] XR Abdomen Single viewOrdere d By: Frances Norton on 10-14-2022 [facility] Work Phone: Bacteria identified Aer cx N om (Lower resp)Ordered By: Tobi Lim on 10-13-2022 Gram Stain Result Moderate Epithelial cells per low power field Abnormal [facility] Gram Stain Result Few Polymorphonuclea r leukocytes per low power field Abnormal [facility] Gram Stain Result Negative Abnormal [facility] Interpretation and review of laboratory results Abnormal [facility] Basic metabolic 1998 panelon 10-13-2022 Anion gap [Moles/Vol] 1 mmol/L Low 3 - 13 mmol/L [facility] Calcium [Mass/Vol] 8.2 mg/dL Low 8.4 - 10. 4 mg/dL [facility] Chloride [Moles/Vol] 110 mmol/L High 98 - 10 7 mmol/L [facility] CO2 [Moles/Vol] 28 mmol/L 22 - 30 mmol/L [facility] Creatinine [Mass/Vol] 0.90 mg/dL 0.52 - 1.04 mg/dL [facility] GFR/1.73 sq M.predicted MDRD (S/P/Bld) [Vol rate/Area] 62.4 mL/min/{1.73_m2} - PINF [facility] Comment on above: Calculation based on the Chronic Kidney Disease Epidemiology Collaboration (CKD-EPI) equation refit without adjustment for race Glucose [Mass/Vol] 95 mg/dL 70 - 100 mg/dL [facility] Interpretation and review of laboratory results Abnormal [facility] Potassium [Moles/Vol] 4.5 mmol/L 3.5 - 5.1 mmol/L [facility] Sodium [Moles/Vol] 138 mmol/L 135 - 145 mmol/L [facility] Urea nitrogen [Mass/Vol] 20 mg/dL High 7 - 17 mg/dL [facility] CBC W Auto Differential pane l (Bld)Ordered By: Va Joe on 10-13-2022 Basophils (Bld) [#/Vol] 0.0 10*3/uL 0.0 - 0.2 10*3/uL [facility] Basophils/100 WBC (Bld) 0.4 % 0.0 - 2.0 % [facility] Eosinophils (Bld) [#/Vol] 0.2 10*3/uL 0.0 - 0.5 10*3/uL [facility] Eosinophils/100 WBC (Bld) 2.4 % 1.0 - 6.0 % [facility] Erythrocyte distribution width (RBC) [Ratio] 13.8 % 11.5 - 14.5 % [facility] Hematocrit (Bld) [Volume fraction] 29.3 % Low 35.0 - 47.0 % [facility] Hemoglobin (Bld) [Mass/Vol] 9.8 g/dL Low 11.7 - 16.0 g/dL [facility] Interpretation and review of laboratory results Abnormal [facility] Lymphocytes (Bld) [#/Vol] 1.6 10*3/uL 1.0 - 4.3 10*3/uL [facility] Lymphocytes/100 WBC (Bld) 20.5 % 20.0 - 40.0 % [facility] MCH (RBC) [Entitic mass] 33.9 pg 26.0 - 34.0 pg [facility] MCHC (RBC) [Mass/Vol] 33.4 % 32.0 - 36.0 % [facility] MCV (RBC) [Entitic vol] 101.4 fL High 80.0 - 98.0 fL [facility] Monocytes (Bld) [#/Vol] 0.6 10*3/uL 0.0 - 0.8 10*3/uL [facility] Monocytes/100 WBC (Bld) 7.7 % 2.0 - 10.0 % [facility] Neutrophils (Bld) [#/Vol] 5.4 10*3/uL 1.8 - 7.0 10*3/uL [facility] Neutrophils/100 WBC (Bld) 69.0 % 40.0 - 80.0 % [facility] Nucleated RBC/100 WBC (Bld) [Ratio] 0.0 % [facility] Platelet mean volume (Bld) [Entitic vol] 7.2 fL Low 7.4 - 12.4 fL [facility] Platelets (Bld) [#/Vol] 201 10*3/uL 140 - 440 10*3/uL [facility] RBC (Bld) [#/Vol] 2.88 10*6/uL Low 3.8 - 5.20 10*6/uL [facility] WBC (Bld) [#/Vol] 7.8 10*3/uL 3.6 - 10.7 10*3/uL [facility] Respiratory culture and Stai nOrdered By: Tobi Lim on 10-13-2022 Bacteria identified Aer cx Nom (Lower resp) Few respiratory harrison present. [facility] XR Chest 2 Viewson 3 See findings. Report Dictated on Electronically Signed By: Xavier Bender MD Electronically Signed Date/Time: 10/13/2022 2:02 PM [facility] Patient Name: KATHERINE SIMON : [...] pneumothorax. Osseous structures: No acute osseous abnormality. [facility] Xavier Bender MD - 10/13/2022 Patient Name: KATHERINE [...] Electronically Signed Date/Time: 10/13/2022 2:02 PM EDT [facility] Radiology Study observation (narrative) [facility] XR Chest 2 ViewsOrdered By: Xavier Bender on 10-13-2022 [employer] Work Phone: Basic metabolic 1998 panelon 10-12-2022 Anion gap [Moles/Vol] 6 mmol/L 3 - 13 mmol/L [facility] Calcium [Mass/Vol] 7.9 mg/dL Low 8.4 - 10. 4 mg/dL [facility] Chloride [Moles/Vol] 110 mmol/L High 98 - 10 7 mmol/L [facility] CO2 [Moles/Vol] 25 mmol/L 22 - 30 mmol/L [facility] Creatinine [Mass/Vol] 0.97 mg/dL 0.52 - 1.04 mg/dL [facility] GFR/1.73 sq M.predicted MDRD (S/P/Bld) [Vol rate/Area] 57.0 mL/min/{1.73_m2} Low - PINF [facility] Comment on above: Calculation based on the Chronic Kidney Disease Epidemiology Collaboration (CKD-EPI) equation refit without adjustment for race Glucose [Mass/Vol] 107 mg/dL High 70 - 100 mg/dL [facility] Interpretation and review of laboratory results Abnormal [facility] Potassium [Moles/Vol] 4.4 mmol/L 3.5 - 5.1 mmol/L [facility] Sodium [Moles/Vol] 141 mmol/L 135 - 145 mmol/L [facility] Urea nitrogen [Mass/Vol] 21 mg/dL High 7 - 17 mg/dL [facility] CBC W Auto Differential pane l (Bld)Ordered By: Sylvain Rogers on 10-12-2022 Basophils (Bld) [#/Vol] 0.0 10*3/uL 0.0 - 0.2 10*3/uL [facility] Basophils/100 WBC (Bld) 0.4 % 0.0 - 2.0 % [facility] Eosinophils (Bld) [#/Vol] 0.0 10*3/uL 0.0 - 0.5 10*3/uL [facility] Eosinophils/100 WBC (Bld) 0.1 % Low 1.0 - 6.0 % [facility] Erythrocyte distribution width (RBC) [Ratio] 13.7 % 11.5 - 14.5 % [facility] Hematocrit (Bld) [Volume fraction] 30.0 % Low 35.0 - 47.0 % [facility] Hemoglobin (Bld) [Mass/Vol] 10.1 g/dL Low 11.7 - 16.0 g/dL [facility] Interpretation and review of laboratory results Abnormal [facility] Lymphocytes (Bld) [#/Vol] 1.5 10*3/uL 1.0 - 4.3 10*3/uL [facility] Lymphocytes/100 WBC (Bld) 11.9 % Low 20.0 - 40.0 % [facility] MCH (RBC) [Entitic mass] 34.7 pg High 26.0 - 34.0 pg [facility] MCHC (RBC) [Mass/Vol] 33.7 % 32.0 - 36.0 % [facility] MCV (RBC) [Entitic vol] 103.0 fL High 80.0 - 98.0 fL [facility] Monocytes (Bld) [#/Vol] 0.9 10*3/uL High 0.0 - 0.8 10*3/uL [facility] Monocytes/100 WBC (Bld) 6.9 % 2.0 - 10.0 % [facility] Neutrophils (Bld) [#/Vol] 9.9 10*3/uL High 1.8 - 7.0 10*3/uL [facility] Neutrophils/100 WBC (Bld) 80.7 % High 40.0 - 80.0 % [facility] Nucleated RBC/100 WBC (Bld) [Ratio] 0.0 % [facility] Platelet mean volume (Bld) [Entitic vol] 7.1 fL Low 7.4 - 12.4 fL [facility] Platelets (Bld) [#/Vol] 205 10*3/uL 140 - 440 10*3/uL [facility] RBC (Bld) [#/Vol] 2.91 10*6/uL Low 3.8 - 5.20 10*6/uL [facility] WBC (Bld) [#/Vol] 12.3 10*3/uL High 3.6 - 10.7 10*3/uL [facility] Consulton 10-12-2022 Consult Vancomycin therapy h as been discontinued by Dr. Tobar on 10-12-22. Thank you for the consult. Pharmacy signing off for vancomycin dosing. Marilu Whitaker [facility], Date: 10/12/22 Time: 12:14 PM Normal [facility] Progress Noteon 10-12-2022 Progress Note Physical Therapy Facility/Department: [address] Physical Therapy Initial Evaluation NAME: Katherine Judge : 1935 Date of Service: 10/12/2022 Discharge Recommendations: Group Home Facility, Continue to assess pending progress PT Equipment Recommendations Equipment Needed: (TBD as pt progresses) Assessment Requires PT Follow-Up: Yes Assessment: Pt is an 87 y.o. female admitted 10/10 with worsening abdominal pain. Found to have constipation. Pt was previously independent with functional mobility without AD, pt reports she has been "carrying around" SPC but does not use. Pt is [...] name. Increased arousal with mobility. Pt states "I want to get up" Patient Stated Goal: To go home Pain [...] of session. Pt reports she has been "carrying around" SPC since fall, but reports independent with [...] supine<->sit, sc (more content not included)... Normal [facility] Progress Note Nutrition Assessment Type and Reason [...] assess Fluid Accumulation: No significant fluid accumulation Nut Tightener Strength: Not Performed Nutrition Assessment: 87 year old woman with PMHx: CAD, colitis, hypothyroidism. Presented to [facility] with worsening abdominal pain (achy and crampy). [...] (kg): 49.4 kg Total Energy Requirements (kcals/day): 7559-3577 (30-35 kcal/kg CBW) Weight Used for Protein [...] 110# UBW) % Weight Change (Calculated): -4.5 [place] Body Weight (lbs) (Calculated): 100 lbs [place] Body Weight (Kg) (Calculated): 45 kg % [place] Body Weight (Calculated): 105 % BMI (kg/m2) [...] Discharge Planning: Too soon to determine Kiana Wagner, RDN, LDN, Contact: *[phone] [facility] Progress Note Pharmacy Vancomycin Consult Follow-Up Note Non-QUILL L[facility]ER Patients Current Dosinmg q24h CREATININE Date Value [...] check random level with am labs. Normal [facility] CBC W Auto Differential pane l (Bld)Ordered By: Juvenal Lei on 10-11-2022 Basophils (Bld) [#/Vol] 0.0 10*3/uL 0.0 - 0.2 10*3/uL [facility] Basophils/100 WBC (Bld) 0.2 % 0.0 - 2.0 % [facility] Eosinophils (Bld) [#/Vol] 0.0 10*3/uL 0.0 - 0.5 10*3/uL [facility] Eosinophils/100 WBC (Bld) 0.3 % Low 1.0 - 6.0 % [facility] Erythrocyte distribution width (RBC) [Ratio] 14.1 % 11.5 - 14.5 % [facility] Hematocrit (Bld) [Volume fraction] 36.6 % 35.0 - 47.0 % [facility] Hemoglobin (Bld) [Mass/Vol] 11.8 g/dL 11.7 - 16.0 g/dL [facility] Interpretation and review of laboratory results Abnormal [facility] Lymphocytes (Bld) [#/Vol] 1.4 10*3/uL 1.0 - 4.3 10*3/uL [facility] Lymphocytes/100 WBC (Bld) 9.1 % Low 20.0 - 40.0 % [facility] MCH (RBC) [Entitic mass] 32.9 pg 26.0 - 34.0 pg [facility] MCHC (RBC) [Mass/Vol] 32.2 % 32.0 - 36.0 % [facility] MCV (RBC) [Entitic vol] 102.1 fL High 80.0 - 98.0 fL [facility] Monocytes (Bld) [#/Vol] 1.0 10*3/uL High 0.0 - 0.8 10*3/uL [facility] Monocytes/100 WBC (Bld) 6.8 % 2.0 - 10.0 % [facility] Neutrophils (Bld) [#/Vol] 12.7 10*3/uL High 1.8 - 7.0 10*3/uL [facility] Neutrophils/100 WBC (Bld) 83.6 % High 40.0 - 80.0 % [facility] Nucleated RBC/100 WBC (Bld) [Ratio] 0.0 % [facility] Platelet mean volume (Bld) [Entitic vol] 7.1 fL Low 7.4 - 12.4 fL [facility] Platelets (Bld) [#/Vol] 195 10*3/uL 140 - 440 10*3/uL [facility] RBC (Bld) [#/Vol] 3.59 10*6/uL Low 3.8 - 5.20 10*6/uL [facility] WBC (Bld) [#/Vol] 15.1 10*3/uL High 3.6 - 10.7 10*3/uL [facility] Comprehensive metabolic 1998 panelon 10-11-2022 Albumin [Mass/Vol] 3.1 g/dL Low 3.5 - 5.0 g/dL [facility] ALP [Catalytic activity/Vol] 85 U/L 38 - 126 U/L [facility] ALT [Catalytic activity/Vol] 12 U/L 0 - 34 U/L [facility] Anion gap [Moles/Vol] 4 mmol/L 3 - 13 mmol/L [facility] AST [Catalytic activity/Vol] 21 U/L 15 - 46 U/L [facility] Bilirubin [Mass/Vol] 0.8 mg/dL 0.2 - 1 .3 mg/dL [facility] Calcium [Mass/Vol] 8.2 mg/dL Low 8.4 - 10. 4 mg/dL [facility] Chloride [Moles/Vol] 107 mmol/L 98 - 10 7 mmol/L [facility] CO2 [Moles/Vol] 28 mmol/L 22 - 30 mmol/L [facility] Creatinine [Mass/Vol] 0.72 mg/dL 0.52 - 1.04 mg/dL [facility] GFR/1.73 sq M.predicted MDRD (S/P/Bld) [Vol rate/Area] 81.5 mL/min/{1.73_m2} - PINF [facility] Comment on above: Calculation based on the Chronic Kidney Disease Epidemiology Collaboration (CKD-EPI) equation refit without adjustment for race Glucose [Mass/Vol] 86 mg/dL 70 - 100 mg/dL [facility] Interpretation and review of laboratory results Abnormal [facility] Potassium [Moles/Vol] 4.0 mmol/L 3.5 - 5.1 mmol/L [facility] Protein [Mass/Vol] 6.0 g/dL Low 6.3 - 8.2 g/dL [facility] Sodium [Moles/Vol] 140 mmol/L 135 - 145 mmol/L [facility] Urea nitrogen [Mass/Vol] 17 mg/dL 7 - 17 mg/dL [employer] ECG 12 leadOrdered By: Gomez Cooney on 10-11-2022 Heart rate 107 /min bpm [facility] Work Phone: P [place] 17 degrees [employer] Phone: AK Interval 134 ms [employer] Phone: QRS [place] 122 degrees [employer] Phone: QRSD Interval 150 ms [employer] Phone: QT Interval 391 ms [employer] Phone: QTC Interval 506 ms [employer] Phone: [phone] T Wave [place] -42 degrees [employer] Phone: [phone] [employer] Phone: [phone] ECG 12 leadon 10-11-2022 Sinus tachycardia ra te 107 Paired ventricular premature complexes RBBB and LPFB Lateral ST depression QT prolongation No previous ECG available for comparison Electronically Signed On 10-11-2022 10:41:31 EDT by Martín Pedraza, - 10/11/2022 IMPRESSION: Sinus tachycardia rate 107 Paired ventricular premature complexes RBBB and LPFB Lateral ST depression QT prolongation No previous ECG available for comparison Electronically Signed On 10-11-2022 10:41:31 EDT by Martín Cooney [facility] ECG 12-LEADon 10-11-2022 ECG 12-LEAD IMPRESSION: Sinus tachycardia rate 107 Paired ventricular premature complexes RBBB and LPFB Lateral ST depression QT prolongation No previous ECG available for comparison Electronically Signed On 10-11-2022 10:41:31 EDT by Martín Cooney [facility] IDNon 10-11-2022 IDN The patient is Moder [...] these barriers include encourage fluids . Normal [facility] Legionella and Streptococcus Urine AntigenOrdered By: Vaibhav Londono on 10-11-2022 Interpretation and review of laboratory results Normal [facility] Legionella pneumophila Ag Not detected Not Detected [facility] Streptococcus pneumoniae Ag Not detected Not Detected [facility] Methodology: Lateral flow enzyme immunoassay This assay is approved for detection of antigens to Streptococcus pneumoniae and Legionella pneumophila serogroup 1; however, other L. pneumophila serogroups may also be detected. [facility] Procalcitonin Teston 023 Procalcitonin [Mass/Vol] 0.14 ng/mL High 0.00 - 0.09 ng/mL [facility] Procalcitonin [Mass/Vol]on 0 10-11-2022 Interpretation and review of laboratory results Abnormal [facility] PCT <0.50 = Low risk of severe sepsis and/or septic shock. PCT >2.00 = High risk of severe sepsis and/or septic shock. [facility] Progress Noteon 10-11-2022 Progress Note Attempted two IV sta rts, call [facility] to place for antibiotics. ] Normal [facility] Progress Note Pharmacy Vancomycin Consult Follow-Up Note Non-[facility] Patients Current Dosinmg x1 -> 750mg q24hr [...] of 521 and continue to follow. Normal [facility] Respiratory pathogens DNA an d RNA panel ALTHEA+non-probe (Lower resp)Ordered By: Fela Calvo on 10-11-2022 Acinetobacter baumannii complex Not detected Not Detected [facility] Adenovirus Not detected Not Detected [facility] Chlamydia pneumoniae Not detected Not Detected [facility] Enterobacter cloacae complex Not detected Not Detected [facility] Escherichia coli Not detected Not Detected [facility] FLUAV RNA ALTHEA+non-probe Ql (Lower resp) Not detected Not Detected [facility] FLUBV RNA ALTHEA+non-probe Ql (Lower resp) Not detected Not Detected [facility] Haemophilus influenzae Not detected Not Detected [facility] Human Metapneumovirus Not detected Not Detected [facility] Human Rhinovirus/Enteroviru s Not detected Not Detected [facility] Interpretation and review of laboratory results Normal [facility] Klebsiella (Enterobacter) aerogenes Not detected Not Detected [facility] Klebsiella oxytoca Not detected Not Detected [facility] Klebsiella pneumoniae Not detected Not Detected [facility] Legionella pneumophila Not detected Not Detected [facility] Moraxella catarrhalis Not detected Not Detected [facility] Mycoplasma pneumoniae Not detected Not Detected [facility] Parainfluenza virus Not detected Not Detected [facility] Proteus spp Not detected Not Detected [facility] Pseudomonas aeruginosa Not detected Not Detected [facility] RSV RNA ALTHEA+probe Ql (Resp) Not detected Not Detected [facility] S. agalactiae Org specific cx Ql (Vag fld) Not detected Not Detected [facility] SARS-CoV-2 (COVID-19) RNA ALTHEA+probe Ql (Unsp spec) Not detected Not Detected [facility] SARS-CoV-2 (COVID-19) RNA ALTHEA+probe Ql (Unsp spec) Methodology: Multiplex PCR This panel does not test for SARS-CoV-2 (Covid-19). The following antimicrobial resistance gene is reported if the appropriate organism is detected: mecA. The following antimicrobial resistance genes are reported if detected and the appropriate organisms are detected: CTX-M, IMP, KPC, NDM, OXA-48-like, and VIM. [facility] Serratia marcescens Not detected Not Detected [facility] Staphylococcus aureus Not detected Not Detected [facility] Streptococcus pneumoniae Not detected Not Detected [facility] Streptococcus pyogenes Not detected Not Detected [facility] Vancomycin, randomon 023 Interpretation and review of laboratory results Abnormal [facility] Vancomycin [Mass/Vol] 12.5 ug/mL Low 15.0 - 20.0 ug/mL [facility] XR CHEST 1 VIEWon 10-11-2022 [...] 10/11/2022 11:27 AM EDT Pt c/o sob Normal [facility] XR Chest Single viewon 10-11 Chronic interstitial changes with bilateral basilar atelectasis or scarring. No focal consolidations digitally seen. There is a very large hiatal hernia noted on a CT from 10/10/2022, difficult to visualize on this single film. Report Dictated on Electronically Signed By: Ranjeet Huerta MD Electronically Signed Date/Time: 10/11/2022 11:27 AM EDT [facility] Patient Name: KATHERINE SIMON : 1935 Exam [...] degenerative changes of the spine and shoulders. [facility] Ranjeet Huerta MD - 10/11/2022 Patient [...] Electronically Signed Date/Time: 10/11/2022 11:27 AM EDT [facility] Radiology Study observation (narrative) [facility] [employer] XR Chest Single viewOrdered By: Ranjeet Huerta on 10-11-2022 [facility] Work Phone: Basic metabolic 1998 panelon 10-10-2022 Anion gap [Moles/Vol] 8 mmol/L 3 - 13 mmol/L [facility] [employer] Calcium [Mass/Vol] 8.9 mg/dL 8.4 - 10. 4 mg/dL [facility] [employer] Chloride [Moles/Vol] 103 mmol/L 98 - 10 7 mmol/L [facility] CO2 [Moles/Vol] 30 mmol/L 22 - 30 mmol/L [facility] Creatinine [Mass/Vol] 0.94 mg/dL 0.52 - 1.04 mg/dL [facility] [employer] GFR/1.73 sq M.predicted MDRD (S/P/Bld) [Vol rate/Area] 59.2 mL/min/{1.73_m2} Low - PINF [facility] Comment on above: Calculation based on the Chronic Kidney Disease Epidemiology Collaboration (CKD-EPI) equation refit without adjustment for race Glucose [Mass/Vol] 110 mg/dL High 70 - 100 mg/dL [facility] Potassium [Moles/Vol] 4.1 mmol/L 3.5 - 5.1 mmol/L [facility] Sodium [Moles/Vol] 142 mmol/L 135 - 145 mmol/L [facility] Urea nitrogen [Mass/Vol] 22 mg/dL High 7 - 17 mg/dL [facility] CBC W Auto Differential pane l (Bld)Ordered By: Rivka Tipton on 10-10-2022 Basophils (Bld) [#/Vol] 0.0 10*3/uL 0.0 - 0.2 10*3/uL [facility] Basophils/100 WBC (Bld) 0.1 % 0.0 - 2.0 % [facility] Eosinophils (Bld) [#/Vol] 0.0 10*3/uL 0.0 - 0.5 10*3/uL [facility] Eosinophils/100 WBC (Bld) 0.1 % Low 1.0 - 6.0 % [facility] Erythrocyte distribution width (RBC) [Ratio] 14.2 % 11.5 - 14.5 % [facility] Hematocrit (Bld) [Volume fraction] 37.3 % 35.0 - 47.0 % [facility] Hemoglobin (Bld) [Mass/Vol] 12.6 g/dL 11.7 - 16.0 g/dL [facility] Interpretation and review of laboratory results Abnormal [facility] Lymphocytes (Bld) [#/Vol] 1.3 10*3/uL 1.0 - 4.3 10*3/uL [facility] Lymphocytes/100 WBC (Bld) 7.6 % Low 20.0 - 40.0 % [facility] MCH (RBC) [Entitic mass] 34.5 pg High 26.0 - 34.0 pg [facility] MCHC (RBC) [Mass/Vol] 33.9 % 32.0 - 36.0 % [facility] MCV (RBC) [Entitic vol] 102.0 fL High 80.0 - 98.0 fL [facility] Monocytes (Bld) [#/Vol] 1.0 10*3/uL High 0.0 - 0.8 10*3/uL [facility] Monocytes/100 WBC (Bld) 5.8 % 2.0 - 10.0 % [facility] Neutrophils (Bld) [#/Vol] 14.6 10*3/uL High 1.8 - 7.0 10*3/uL [facility] Neutrophils/100 WBC (Bld) 86.4 % High 40.0 - 80.0 % [facility] Nucleated RBC/100 WBC (Bld) [Ratio] 0.0 % [facility] Platelet mean volume (Bld) [Entitic vol] 7.2 fL Low 7.4 - 12.4 fL [facility] Platelets (Bld) [#/Vol] 217 10*3/uL 140 - 440 10*3/uL [facility] RBC (Bld) [#/Vol] 3.65 10*6/uL Low 3.8 - 5.20 10*6/uL [facility] WBC (Bld) [#/Vol] 16.9 10*3/uL High 3.6 - 10.7 10*3/uL [facility] COVID-19, Flu A/B, and RSV C omboon 10-10-2022 FLUAV RNA ALTHEA+probe Ql (Resp) Not detected Not Detected [facility] FLUBV RNA ALTHEA+probe Ql (Resp) Not detected Not Detected [facility] Interpretation and review of laboratory results Normal [facility] RSV RNA ALTHEA+probe Ql (Resp) Not detected Not Detected [facility] SARS-CoV-2 (COVID-19) RNA ALTHEA+probe Ql (Resp) Not detected Not Detected [facility] SARS-CoV-2 (COVID-19) RNA ALTHEA+probe Ql (Unsp spec) Methodology: real-time, RT-PCR The SARS-CoV-2, Flu A/B, and RSV Combo assay is intended for in vitro diagnostic use under the FDA Emergency Use Authorization (EUA). This test has not been FDA cleared or approved. In compliance with this authorization, please visit www.fda.gov/media/794490/messi nload or www.fda.gov/media/984246/messi nload to access the applicable information sheets. [facility] CT ABDOMEN PELVIS W CONTRAST [...] she started to cough as well. Normal [facility] CT Abdomen and Pelvis W cont rast [...] Electronically Signed Date/Time: 10/10/2022 5:13 PM EDT [employer] Patient Name: [facility]ATHER[facility] SIM[facility] 1935 [id number] Exam Date/Time: 10/10/2022 16:52 Procedure: CT ABDOMEN [...] moderate central canal and neural foraminal narrowing. [facility] [employer] Jos Rizo MD - 10/10/2022 Patient Name: KATHERINE JUDGE: 1935 [id number] Exam Date/Time: 10/10/2022 16:52 Procedure: CT ABDOMEN [...] Electronically Signed Date/Time: 10/10/2022 5:13 PM EDT [facility] [employer] Radiology Study observation (narrative) [facility] CT Abdomen and Pelvis W cont rast IVOrdered By: Jos Rizo on 10-10-2022 [facility] [employer] Work Phone: Consulton 10-10-2022 Consult Pharmacy Note Vancomycin Consult Non-QUILL LAYER Katherine Judge is a 87 y.o. year [...] the consult. Will continue to follow. Normal [facility] ED Nursing Noteon 10-10-2022 ED Nursing Note Guided family back Lavinia Jenkins, EMT 10/10/22 1419 Normal [facility] ED Provider Noteon 3 ED Provider Note Emergency Department Encounter [facility] ED Patient: Katherine Judge : [...] made by myself in conjunction with the FREDI. For all further details of the patient's [...] the dictating provider for clarification.) Evelin Salcedo, DO [employer] Evelin Salcedo DO 10/10/22 2131 [facility] ED Provider Note EMERGENCY DEPARTMENT ENCOUNTER Pt [...] Laterality Date OTHER SURGICAL HISTORY she reports "bowel resections" in the past CURRENT MEDICATIONS Previous Medications [...] Culture. Procedure Abnormality Status --------- ------ Complete Urinalysis[[id number]] Please view results for these tests on the individual orders. (more content not included)... Normal [facility] Hepatic function 2000 panelo n 10-10-2022 Albumin [Mass/Vol] 3.4 g/dL Low 3.5 - 5.0 g/dL [facility] ALP [Catalytic activity/Vol] 88 U/L 38 - 126 U/L [facility] ALT [Catalytic activity/Vol] 14 U/L 0 - 34 U/L [facility] AST [Catalytic activity/Vol] 24 U/L 15 - 46 U/L [facility] Bilirubin [Mass/Vol] 1.0 mg/dL 0.2 - 1 .3 mg/dL [facility] Bilirubin.conjugated [Mass/Vol] 0.0 mg/dL 0.0 - 0.3 mg/dL [facility] Protein [Mass/Vol] 7.0 g/dL 6.3 - 8.2 g/dL [facility] IDNon 10-10-2022 IDN The patient is Moder [...] barriers include continue current care plan. Normal [facility] Lactic acid, sepsis, with re flex if elevatedon 10-10-2022 Interpretation and review of laboratory results Normal [facility] Lactate [Moles/Vol] 0.9 mmol/L 0.7 - 2. 0 mmol/L [facility] Lipaseon 10-10-2022 Lipase [Catalytic activity/Vol] 25 U/L 23 - 300 U/L [facility] Lipase [Catalytic activity/V ol]on 10-10-2022 Interpretation and review of laboratory results Normal [facility] No Panel Informationon 10-10 Interpretation and review of laboratory results Abnormal [facility] Urinalysis complete panel (U )Ordered By: Argelia Wood on 10-10-2022 Bacteria LM.HPF (Urine sed) [#/Area] Negative Negative /HPF [facility] Bilirubin Ql (U) Negative Negative mg/dL [facility] Clarity (U) Clear Clear [facility] Color (U) Yellow Lt. Yellow [facility] Epithelial cells.squamous LM.HPF (Urine sed) [#/Area] 0-2 [facility] Glucose Ql (U) Normal Normal (<70) mg/dL [facility] Hemoglobin Ql (U) 0.03 mg/dL Abnormal Negative [facility] Hyaline casts Auto (Urine sed) [#/Area] 6-10 Abnormal Negative /LPF [facility] Interpretation and review of laboratory results Abnormal [facility] Ketones (U) [Mass/Vol] Trace Abnormal Negative mg/dL [facility] Leukocyte esterase Test strip Ql (U) Negative Negative Roxann/uL [facility] Mucus LM.HPF (Urine sed) [#/Area] Few Negative /LPF [facility] Nitrite Ql (U) Negative Negative [facility] pH (U) 5.5 [pH] 5.0 - 8.0 pH [facility] Protein (U) [Mass/Vol] 30 mg/dL Abnormal Negative [facility] RBC LM.HPF (Urine sed) [#/Area] 0-2 [facility] Specific gravity (U) [Rel density] 1.018 1.005 - 1.030 [facility] Urobilinogen (U) [Mass/Vol] Normal Normal (0-1) mg/dL [facility] WBC LM.HPF (Urine sed) [#/Area] 3-5 [facility] Blood Pressure Cuff Sizeon 0 [...] prolapse) Echocardiogram; Status:Hold For - Scheduling; Requested for:[id number]; PMH: History of hypertension Renew: Metoprolol Tartrate 50 MG Oral Tablet; TAKE 1 TABLET EVERY 12 HOURS DAILY PMH: History of hypokalemia Renew: Potassium Chloride ER 10 MEQ Oral Capsule Extended Release; TAKE 2 CAPSULES BY MOUTH DAILY History of Present Illness Mrs Judge is an 87 year old female with anemia, mitral regurg, rheumatic fever as a child, hypothyroidism, hypertension, hyperlipidemia, CA,m CAD, CABG and then an angioplasty after [...] by Problem List Migration; 2012-04-06; Moved to [facility] Jan 01 2013 4:07PM Medicare annual wellness [...] Non-Q-wave Myocardial Infarction - Initial Care (New [place]) (410.71) Added by Problem List Migration; 2012-08-06 History of Arthritis (V13.4) History of Atherosclerotic heart disease of [place] coronary artery with unspecified angina pectoris (414.01,413.9) [...] pleural eff (more content not included)... Normal [facility] CHEST 2 VIEW PA AND LATon CHEST 2 VIEW PA AND LAT Patient Name: KATHERINE JUDGE STUDY: TH CHEST 2 VIEW PA AND LAT; 06/30/2022 1:10 pm INDICATION: recheck pneumonia; prior x-ray 05/30/2022 s/p tx with Levaquin. COMPARISON: 05/30/2022 ACCESSION NUMBER(S): [id number] ORDERING CLINICIAN: CHRIST URIBE TECHNIQUE: FINDINGS: Heart [...] Electronically signed by: GIORGI MULLER MD Normal [facility] Office Visit (Cardiology)on 06-12-2022 Follow-up visit Diagnoses/Problems Assessed CAD (coronary artery disease) (414.00) (I25.10) Pneumonia, bacterial (482.9) (J15.9) History of Present Illness 06/12/22: Mrs Judge is an 87 year old female with anemia, mitral regurg, rheumatic fever as a child, hypothyroidism, hypertension, hyperlipidemia, CA,m CAD, CABG and then an angioplasty after CABG, carotid artery disease, CVA, CKD, chronic colitis, osteoporosis, insomnia and peripheral neuropathy, here for an acute visit for complaints of shortness of breath. She was recently dx with pneumonia and she is currently on her second round of levaquin. Her weight is down 2 lbs since the initiation of lasix, however the patient states she "has no appetite." She no longer has any lower extremity edema. Her GERD is much improved with Pepcid. 03/12/22: Mrs Judge is an 86 year old female with anemia, mitral regurg, rheumatic fever as a child, hypothyroidism, hypertension, hyperlipidemia, CA,m CAD, CABG and then an angioplasty after [...] fever as a child, hypothyroidism, hypertension, hyperlipidemia, CA,m CAD, CABG and then an angioplasty after [...] a PMH of anemia, hypothyroidism, hypertension, hyperlipidemia, CA, CAD, CABG, then an angioplasty after CABG, [...] by Problem List Migration; 2012-04-06; Moved to [facility] Jan 01 2013 4:07PM Medicare annual wellness [...] Knee Replacemen (more content not included)... Normal [facility] Tobacco Screening.on 023 Fall risk assessment b) One or more fall s in the last year [facility] [place] Work Phone: Tobacco use status CPHS b) No [facility] [place] Work Phone: XR Chest 2 Viewson 3 Possible focus of ne w right lower lobe pneumonia. Large hiatal hernia again noted. Numerous vertebral compression fractures. [facility] Interpreted By: HEIDI CHANEL MD Patient Name: KATHERINE JUDGE STUDY: TH CHEST 2 VIEW PA AND LAT INDICATION: hypoxia; no chest pain, no cough. COMPARISON: October 09, 2017 ACCESSION NUMBER(S): [id number] ORDERING CLINICIAN: CHRIST URIBE FINDINGS: Cardiomegaly with median sternotomy unchanged. Large hiatal hernia. Possible new patchy right basilar airspace opacity which could be a component of pneumonia. Numerous vertebral compression fractures again noted. [facility] Heidi Muller MD - 05/31/2022 Interpreted By: HEIDI MULLER MD Patient Name: KATHERINE JUDGE STUDY: TH CHEST 2 VIEW PA AND LAT INDICATION: hypoxia; no chest pain, no cough. COMPARISON: October 09, 2017 ACCESSION NUMBER(S): [id number] ORDERING CLINICIAN: CHRIST URIBE FINDINGS: Cardiomegaly with median sternotomy unchanged. Large hiatal hernia. Possible new patchy right basilar airspace opacity which could be a component of pneumonia. Numerous vertebral compression fractures again noted. IMPRESSION: Possible focus of new right lower lobe pneumonia. Large hiatal hernia again noted. Numerous vertebral compression fractures. [facility] Work Phone: XR Chest 2 ViewsOrdered By: Heidi uMller on 05-31-2022 [facility] Work Phone: BASIC METABOLIC PANELon 05-11 Anion gap [Moles/Vol] 13 mmol/L Normal 10 - 20 [facility] Comment on above: Performed By: #### B MP #### [facility] [address] [place] [address] Calcium [Mass/Vol] 10.2 mg/dL Normal 8.6 - 10.6 [facility] Comment on above: Performed By: #### B MP #### [facility] [address] [place] [address] Chloride [Moles/Vol] 105 mmol/L Normal 98 - 107 [facility] Comment on above: Performed By: #### B MP #### [facility] [address] [place] [address] Creatinine [Mass/Vol] 0.93 mg/dL Normal 0.50 - 1.05 [facility] Comment on above: Performed By: #### B MP #### [facility] [address] [place] [address] GFR/1.73 sq M.predicted among non-blacks MDRD (S/P/Bld) [Vol rate/Area] 60 mL/min/{1.73_m2} Normal >90 [facility] Comment on above: Result Comment: CALC ULATIONS OF ESTIMATED GFR ARE PERFORMED USING THE 2020 CKD-EPI STUDY REFIT EQUATION WITHOUT THE RACE VARIABLE FOR THE IDMS-TRACEABLE CREATININE METHODS. https://jasn.asnjournals.org/content//ASN.595278 6104 Performed By: #### B MP #### [facility] [address] [place] [address] Glucose [Mass/Vol] 84 mg/dL Normal 74 - 99 [facility] Comment on above: Performed By: #### B MP #### [facility] [address] [place] [address] HCO3 (Bld) [Moles/Vol] 31 mmol/L Normal 21 - 32 [facility] Comment on above: Performed By: #### B MP #### [facility] [address] [place] [address] Potassium [Moles/Vol] 4.2 mmol/L Normal 3.5 - 5.3 [facility] Comment on above: Performed By: #### B MP #### [facility] [address] [place] [address] Sodium [Moles/Vol] 145 mmol/L Normal 136 - 145 [facility] Comment on above: Performed By: #### B MP #### [facility] [address] [place] [address] Urea nitrogen [Mass/Vol] 22 mg/dL Normal 6 - 23 [facility] Comment on above: Performed By: #### B MP #### [facility] [address] [place] [address] CBCon 05-30-2022 Erythrocyte distribution width (RBC) [Ratio] 14.7 % High 11.5 - 14.5 [facility] Comment on above: Performed By: #### C BC ####[id number] [place] [address] Hematocrit (Bld) [Volume fraction] 41.1 % Normal 36.0 - 46.0 [facility] Comment on above: Performed By: #### C BC ####[id number] [place] [address] Hemoglobin (Bld) [Mass/Vol] 13.0 g/dL Normal 12.0 - 16.0 [facility] Comment on above: Performed By: #### C BC ####[id number] [place] [address] MCHC (RBC) [Mass/Vol] 31.6 g/dL Low 32.0 - 36.0 [facility] Comment on above: Performed By: #### C BC ####[id number] [place] [address] MCV (RBC) [Entitic vol] 106 fL High 80 - 100 [facility] Comment on above: Performed By: #### C BC ####[id number] [place] [address] NUCLEATED RBC 0.3 /100 WBC Normal 0.0-0.0 [facility] Comment on above: Performed By: #### C BC ####[id number] [place] [address] Platelets (Bld) [#/Vol] 234 10*3/uL Normal 150 - 450 [facility] Comment on above: Performed By: #### C BC ####[id number] [place] [address] RBC 3.87 x10E12/L Low 4.00 - 5.20 [facility] Comment on above: Performed By: #### C BC ####[id number] [place] [address] WBC (Bld) [#/Vol] 7.0 10*3/uL Normal 4.4 - 11.3 [facility] Comment on above: Performed By: #### C BC ####[id number] [place] [address] CHEST 2 VIEW PA AND LATon CHEST 2 VIEW PA AND LAT Patient Name: KATHERINE JUDGE STUDY: TH CHEST 2 VIEW PA AND LAT INDICATION: hypoxia; no chest pain, no cough. COMPARISON: October 09, 2017 ACCESSION NUMBER(S): [id number] ORDERING CLINICIAN: CHRITS URIBE FINDINGS: Cardiomegaly with median sternotomy unchanged. Large hiatal hernia. Possible new patchy right basilar airspace opacity which could be a component of pneumonia. Numerous vertebral compression fractures again noted. IMPRESSION: Possible focus of new right lower lobe pneumonia. Large hiatal hernia again noted. Numerous vertebral compression fractures. Electronically signed by: HEIDI MULLER MD Normal [facility] LIPID PANEL (CORONARY RISK 2 )on 05-30-2022 Cholesterol [Mass/Vol] 158 mg/dL Normal 0 - 199 [facility] Comment on above: Result Comment: . AGE [...] Performed By: #### L IPID #### [facility] [address] [place] [address] Cholesterol in HDL [Mass/Vol] 47.3 mg/dL Normal [facility] Comment on above: Result Comment: . AGE VERY LOW LOW NORMAL HIGH 0-19 Y < 35 < 40 40-45 ---- 20-24 Y ---- < 40 >45 ---- >24 Y ---- < 40 40-60 >60 . Performed By: #### L IPID #### [facility] [address] [place] [address] Cholesterol in LDL [Mass/Vol] 84 mg/dL Normal 0 - 99 [facility] Comment on above: Result Comment: . NEAR BORD AGE DESIRABLE OPTIMAL HIGH HIGH VERY HIGH 0-19 Y 0 - 109 --- 110-129 >/= 130 ---- 20-24 Y 0 - 119 --- 120-159 >/= 160 ---- >24 Y 0 - 99 100-129 130-159 160-189 >/=190 . Performed By: #### L IPID #### [facility] [address] [place] [address] Cholesterol in VLDL [Mass/Vol] 27 mg/dL Normal 0 - 40 [facility] Comment on above: Performed By: #### L IPID #### [facility] [address] [place] [address] Cholesterol.total/Cho lesterol in HDL [Mass ratio] 3.3 {ratio} Normal [facility] Comment on above: Result Comment: REF VALUES DESIRABLE < 3.4 HIGH RISK > 5.0 Performed By: #### L IPID #### [facility] [address] [place] [address] Triglyceride [Mass/Vol] 135 mg/dL Normal 0 - 149 [facility] Comment on above: Result Comment: . AGE [...] Performed By: #### L IPID #### [facility] [address] [place] [address] MAGNESIUMon 05-30-2022 Magnesium [Mass/Vol] 2.26 mg/dL Normal 1.60 - 2.40 [facility] Comment on above: Performed By: #### M G #### [facility] [address] [place] PHOSPHORUSon 05-30-2022 Phosphate [Mass/Vol] 3.3 mg/dL Normal 2.5 - 4.9 [facility] Comment on above: Result Comment: The performance characteristics of phosphorus testing in heparinized plasma have been validated by the individual laboratory site where testing is performed. Testing on heparinized plasma is not approved by the FDA; however, such approval is not necessary. Performed By: #### P HOS #### [facility] [address] [place], [place] Radiologyon 05-30-2022 XR Chest 2 Views Normal [facility] [place] Work Phone: VITAMIN D, 25-HYDROXYon 05-11 VITAMIN D, 25-HYDROXY 79 ng/mL Normal [facility] Comment on above: Result Comment: . DEFICIENCY: < 20 NG/ML INSUFFICIENCY: 20-29 NG/ML SUFFICIENCY: 30-100 NG/ML THIS ASSAY ACCURATELY QUANTIFIES THE SUM OF VITAMIN D3, 25-HYDROXY AND VIT D2,25-HYDROXY. Performed By: #### V TDOH ####[id number], [place] XR Chest 2 Viewson 3 Radiology Study observation (narrative) [facility] Work Phone: LIPID PANEL (CORONARY RISK 2 )on 05-29-2022 Lab Specimen Source Normal [facility] Comment on above: Performed By: #### L IPID #### [facility] [address] [place], [place] Performed By: #### M G #### [facility] [address] [place], [place] Performed By: #### B MP #### [facility] [address] [place], [place] Performed By: #### P HOS #### [facility] [address] [place], [place] Performed By: #### C BC ####[id number] [place] [address] Laboratory - Chemistry and C hemistry - challengeon 05-29-2022 Anion gap [Moles/Vol] 13 mmol/L 10 - 20 [facility] [place] Work Phone: [phone] Calcium [Mass/Vol] 10.2 mg/dL 8.6 - 10.6 [facility] [place] Work Phone: [phone] Chloride [Moles/Vol] 105 mmol/L 98 - 107 [facility] [place] Work Phone: [phone] CO2 [Moles/Vol] 31 mmol/L 21 - 32 [facility] [place] Work Phone: [phone] Creatinine [Mass/Vol] 0.93 mg/dL See Below [facility] [place] Work Phone: [phone] Comment on above: Reference Range: 0.5 0 - 1.05 Glucose [Mass/Vol] 84 mg/dL 74 - 99 [facility] [place] Work Phone: [phone] Comment on above: SOURCE: Potassium [Moles/Vol] 4.2 mmol/L 3.5 - 5.3 [facility] [place] Work Phone: [phone] Sodium [Moles/Vol] 145 mmol/L 136 - 145 [facility] [place] Work Phone: [phone] Urea nitrogen [Mass/Vol] 22 mg/dL 6 - 23 [facility] [place] Work Phone: [phone] Laboratory - Hematology and Cell countson 05-29-2022 Erythrocyte distribution width (RBC) [Ratio] 14.7 % above high threshold See Below [facility] [place] Work Phone: [phone] Comment on above: Reference Range: 11. 5 - 14.5 Hematocrit (Bld) [Volume fraction] 41.1 % See Below [facility] [place] Work Phone: [phone] Comment on above: Reference Range: 36. 0 - 46.0 Hemoglobin (Bld) [Mass/Vol] 13.0 g/dL See Below [facility] [place] Work Phone: Comment on above: Reference Range: 12. 0 - 16.0 MCHC (RBC) [Mass/Vol] 31.6 g/dL below low threshold See Below [facility] [place] Work Phone: Comment on above: Reference Range: 32. 0 - 36.0 MCV (RBC) [Entitic vol] 106 fL above high threshold 80 - 100 [facility] [place] Work Phone: Platelets (Bld) [#/Vol] 234 10*3/uL 150 - 450 [facility] [place] Work Phone: RBC (Bld) [#/Vol] 3.87 {x10E12/L} below low threshold See Below [facility] [place] Work Phone: Comment on above: Reference Range: 4.0 0 - 5.20 WBC (Bld) [#/Vol] 7.0 10*3/uL 4.4 - 11.3 [facility] [place] Work Phone: Comment on above: SOURCE: Lipid Panelon 05-29-2022 Cholesterol [Mass/Vol] 158 mg/dL 0 - 199 [facility] [place] Work Phone: Comment on above: [...] Cholesterol in HDL [Mass/Vol] 47.3 mg/dL [facility] [place] Work Phone: Comment on above: . AGE VERY LOW LOW N ORMAL HIGH 0-19 Y < 35 < 40 40-45 ---- 20- 24 Y ---- < 40 >45 ---- >24 Y ---- < 40 40-60 >60. Cholesterol in LDL [Mass/Vol] 84 mg/dL 0 - 99 [facility] [address] [place] Work Phone: Comment on above: . NEAR BORD AGE TORI RABLE OPTIMAL HIGH HIGH VERY HIGH 0-19 Y 0 - 109 --- 110-129 >/= 130 ---- 20-24 Y 0 - 119 --- 120-159 >/= 160 ---- >24 Y 0 - 99 100-129 130-159 160-189 >/=190. Cholesterol.total/Cho lesterol in HDL [Mass ratio] 3.3 {ratio} [facility] [place] Work Phone: Comment on above: REF VALUESDESIRABLE < 3.4HIGH RISK > 5.0 Triglyceride [Mass/Vol] 135 mg/dL 0 - 149 [facility] [place] Work Phone: Comment on above: [...] Panel 27 mg/dL 0 - 40 [facility] [place] Work Phone: Magnesium, Serumon 3 Magnesium [Mass/Vol] 2.26 mg/dL See Below [facility] [address] [place] Work Phone: Comment on above: SOURCE: Reference Ra nge: 1.60 - 2.40 No Panel Informationon 05-29 60 {mL/min/1.73m2} >90 [facility] [address] [place] Work Phone: Comment on above: CALCULATIONS OF ALVARO MATED GFR ARE PERFORMED USING THE 2020 CKD-EPI STUDY REFIT EQUATION WITHOUT THE RACE VARIABLE FOR THE IDMS-TRACEABLE CREATININE METHODS.https://jasn.asnjournals.org/content/early// N.2275672647 0.3 {/100_WBC} 0.0-0.0 [facility] [place] Work Phone: Phosphorus, Serumon 05-30-19 23 Phosphate [Mass/Vol] 3.3 mg/dL 2.5 - 4.9 [facility] [address] [place] Work Phone: Comment on above: SOURCE: The performa nce characteristics of phosphorus testing in heparinized plasma have been validated by the individual laboratory site where testing is performed. Testing on heparinized plasma is not approved by the FDA; however, such approval is not necessary. Vitamin D 25-Hydroxyon 05-29 25-hydroxyvitamin D3 [Mass/Vol] 79 ng/mL [facility] [address] [place] Work Phone: Comment on above: .DEFICIENCY: < 20 NG /MLINSUFFICIENCY: 20-29 NG/MLSUFFICIENCY: 30-100 NG/MLTHIS ASSAY ACCURATELY QUANTIFIES THE SUM OFVITAMIN D3, 25-HYDROXY AND VIT D2,25-HYDROXY. BONE DENSITY, DEXA 1 OR MORE SITES: AXIAL SKELETONon 05-09-2022 BONE DENSITY, DEXA 1 OR MORE SITES: AXIAL SKELETON Name: KATHERINE JUDGE Wilber Date: 1935 Height: 60.0 in. Gender: Female [...] Electronically signed by: SUHAIL ALMANZA MD Normal [facility] Blood Pressure Cuff Sizeon 0 03-12-2022 Tobacco use status [facility] b) No [facility] Work Phone: Blood Pressure Cuff Size Adult [facility] Work Phone: Echocardiogramon 03-12-2022 Echocardiography [facility] , [address] [place] [address], [address], [place] [address] and TRANSTHORACIC ECHOCARDIOGRAM REPORT Patient Name: KATHERINE Wilber JUDGE Reading Physician: [id number] Darlene Ayala MD Study Date: 03/12/2022 Referring Physician: Apple Beth MRN/PID: [id number] PCP: Accession/Order#: [id number] Department Location: [facility] Date of : 1935 Fellow: Gender: F Nurse: Admit Date: Medical Editor: Rama ALEGRE Admission Status: Outpatient Additional Staff: Height: 154.94 cm CC Report to: Weight: 48.08 kg Study Type: Echocardiogram BSA: 1.44 m2 Blood Pressure: 136 /69 mmHg Diagnosis/ICD: I34.1-Nonrheumatic mitral (valve) prolapse; I25.10-Atherosclerotic heart disease of [place] coronary artery without angina pectoris Indication: CAD, MVP Procedure/CPT: Echo Complete w Full Doppler-72802 Patient History: Pertinent History: Hx rheumatic fever as child, Anemia, Hypothyroid, HTN, HLD, Hx CVA, CKD, CAD s/p CA s/p CABG x2, Posterior MVP. Study Detail: [...] LA Area A2C: 21.4 cm2 LA [place] A4C: 6.0 cm LA [place] A2C: 5.5 cm LA Vol A4C: 79.5 ml LA Vol A2C: 67.7 ml RA VOLUME BY A/L METHOD: Normal Ranges: RA Vol A4C: 33.2 ml (8.3-19.5ml) RA Vol Index A4C: 23.0 ml/m2 RA Area A4C: 13.1 cm2 RA [place] A4C: 4.4 cm AORTA MEASUREMENTS: Normal Ranges: [...] 2.9 cm (more content not included)... Normal [facility] Office Visit (Cardiology)on 03-12-2022 Follow-up visit Diagnoses/Problems Assessed Aortic stenosis (424.1) (I35.0) Benign essential hypertension (401.1) (I10) Bilateral carotid artery stenosis (433.10,433.30) (I65.23) CAD (coronary artery disease) (414.00) (I25.10) Hypercholesterolemia (272.0) (E78.00) History of Present Illness 03/12/22: Mrs Judge is an 86 year old female with anemia, mitral regurg, rheumatic fever as a child, hypothyroidism, hypertension, hyperlipidemia, CA,m CAD, CABG and then an angioplasty after [...] fever as a child, hypothyroidism, hypertension, hyperlipidemia, CA,m CAD, CABG and then an angioplasty after [...] a PMH of anemia, hypothyroidism, hypertension, hyperlipidemia, CA, CAD, CABG, then an angioplasty after CABG, [...] by Problem List Migration; 2012-04-06; Moved to [facility] Jan 01 2013 4:07PM Medicare annual wellness [...] Non-Q-wave Myocardial Infarction - Initial Care ([place]) (410.71) Added by Problem List Migration; 2012-08-06 History of Arthritis (V13.4) History of Atherosclerotic heart disease of [place] coronary artery with unspecified angina pectoris (414.01,413.9) (I25.119) Added by Problem List Migration; 2012-10-05 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 Normal [facility] Carotid Artery Dupl ex Ultrasounon 03-12-2022 VASC LAB Carotid Artery Duplex [facility] [address], [address] [address] and Vascular Lab Report Carotid Artery Duplex Ultrasound Patient Name: KATHERINE Lo Physician: [id number] Gonsalo Willis MD Study Date: 03/12/2022 Referring Physician: APPLE BETH MRN/PID: [id number] PCP: Accession/Order#: [id number] CC Report to: Date of : 1935 Technologist: Anthony Rich RVT, RDMS Gender: F Technologist 2: Admission Status: Outpatient Location Performed: [facility] Diagnosis/ICD: R09.89-Other specified symptoms and signs involving the circulatory and respiratory systems Procedure/CPT: 89393 Cerebrovascular Carotid Duplex scan complete-99600 CONCLUSIONS: Right Carotid: Findings are consistent with [...] cm/s Right Left ICA/CCA Ratio 0.9 0.8 [id number] Gonsalo Willis MD Final Normal [facility] Carotid Artery Dupl ex Ultrasoundon 03-12-2022 US.doppler Carotid arteries [facility] Work Phone: BASIC METABOLIC PANELon 09-0 Anion gap [Moles/Vol] 15 mmol/L Normal 10 - 20 [facility] Comment on above: Performed By: #### B MP #### [facility] [address] [place] [address] Calcium [Mass/Vol] 10.3 mg/dL Normal 8.6 - 10.6 [facility] Comment on above: Performed By: #### B MP #### [facility] [address] [place] [address] Chloride [Moles/Vol] 103 mmol/L Normal 98 - 107 [facility] Comment on above: Performed By: #### B MP #### [facility] [address] [place] [address] Creatinine [Mass/Vol] 1.22 mg/dL High 0.50 - 1.05 [facility] Comment on above: Performed By: #### B MP #### [facility] [address] [place] [address] GFR/1.73 sq M.predicted among non-blacks MDRD (S/P/Bld) [Vol rate/Area] 43 mL/min/{1.73_m2} Abnormal >90 [facility] Comment on above: Result Comment: CALC ULATIONS OF ESTIMATED GFR ARE PERFORMED USING THE 2020 CKD-EPI STUDY REFIT EQUATION WITHOUT THE RACE VARIABLE FOR THE IDMS-TRACEABLE CREATININE METHODS. https://jasn.asnjournals.org/content/early//ASN.495383 0627 Performed By: #### B MP #### [facility] [address] [place] [address] Glucose [Mass/Vol] 94 mg/dL Normal 74 - 99 [facility] Comment on above: Performed By: #### B MP #### [facility] [address] [place] [address] HCO3 (Bld) [Moles/Vol] 29 mmol/L Normal 21 - 32 [facility] Comment on above: Performed By: #### B MP #### [facility] [address] [place] [address] Potassium [Moles/Vol] 4.5 mmol/L Normal 3.5 - 5.3 [facility] Comment on above: Performed By: #### B MP #### [facility] [address] [place] [address] Sodium [Moles/Vol] 142 mmol/L Normal 136 - 145 [facility] Comment on above: Performed By: #### B MP #### [facility] [address] [place] [address] Urea nitrogen [Mass/Vol] 21 mg/dL Normal 6 - 23 [facility] Comment on above: Performed By: #### B MP #### [facility] [address] [place] [address] Blood Pressure Cuff Sizeon 0 10-16-2021 Blood Pressure Cuff Size Adult [facility] Work Phone: CBCon 10-16-2021 Erythrocyte distribution width (RBC) [Ratio] 13.5 % Normal 11.5 - 14.5 [facility] Comment on above: Performed By: #### C BC #### [facility] [address] [place] [address] Hematocrit (Bld) [Volume fraction] 39.0 % Normal 36.0 - 46.0 [facility] Comment on above: Performed By: #### C BC #### [place] [address] [place] [address] Hemoglobin (Bld) [Mass/Vol] 12.0 g/dL Normal 12.0 - 16.0 [facility] Comment on above: Performed By: #### C BC #### [place] [address] [place] [address] MCHC (RBC) [Mass/Vol] 30.8 g/dL Low 32.0 - 36.0 [facility] Comment on above: Performed By: #### C BC #### [facility] [address] [place] [address] MCV (RBC) [Entitic vol] 107 fL High 80 - 100 [facility] Comment on above: Performed By: #### C BC #### [facility] [address] [place] [address] NUCLEATED RBC 0.0 /100 WBC Normal 0.0-0.0 [facility] Comment on above: Performed By: #### C BC #### [facility] [address] [place] [address] Platelets (Bld) [#/Vol] 235 10*3/uL Normal 150 - 450 [facility] Comment on above: Performed By: #### C BC #### [facility] [address] [place] [address] RBC 3.64 x10E12/L Low 4.00 - 5.20 [facility] Comment on above: Performed By: #### C BC #### [facility] [address] [place] [address] WBC (Bld) [#/Vol] 6.6 10*3/uL Normal 4.4 - 11.3 [facility] Comment on above: Performed By: #### C #### [facility] [address] [place] [address] Laboratory - Chemistry and C hemistry - challengeon 10-16-2021 Anion gap [Moles/Vol] 15 mmol/L 10 - 20 [facility] Work Phone: [phone] Calcium [Mass/Vol] 10.3 mg/dL 8.6 - 10.6 [facility] Work Phone: [phone] Chloride [Moles/Vol] 103 mmol/L 98 - 107 [facility] Work Phone: [phone] CO2 [Moles/Vol] 29 mmol/L 21 - 32 [facility] Work Phone: Creatinine [Mass/Vol] 1.22 mg/dL above high threshold See Below [facility] Work Phone: Comment on above: Reference Range: 0.5 0 - 1.05 Glucose [Mass/Vol] 94 mg/dL 74 - 99 [facility] Work Phone: [phone] Potassium [Moles/Vol] 4.5 mmol/L 3.5 - 5.3 [facility] Work Phone: [phone] Sodium [Moles/Vol] 142 mmol/L 136 - 145 [facility] Work Phone: [phone] Urea nitrogen [Mass/Vol] 21 mg/dL 6 - 23 [facility] Work Phone: [phone] Laboratory - Hematology and Cell countson 10-16-2021 Erythrocyte distribution width (RBC) [Ratio] 13.5 % See Below [facility] Work Phone: Comment on above: Reference Range: 11. 5 - 14.5 Hematocrit (Bld) [Volume fraction] 39.0 % See Below [facility] Work Phone: Comment on above: Reference Range: 36. 0 - 46.0 Hemoglobin (Bld) [Mass/Vol] 12.0 g/dL See Below [facility] Work Phone: Comment on above: Reference Range: 12. 0 - 16.0 MCHC (RBC) [Mass/Vol] 30.8 g/dL below low threshold See Below [facility] Work Phone: Comment on above: Reference Range: 32. 0 - 36.0 MCV (RBC) [Entitic vol] 107 fL above high threshold 80 - 100 [facility] Work Phone: Platelets (Bld) [#/Vol] 235 10*3/uL 150 - 450 [facility] Work Phone: RBC (Bld) [#/Vol] 3.64 {x10E12/L} below low threshold See Below [facility] Work Phone: Comment on above: Reference Range: 4.0 0 - 5.20 WBC (Bld) [#/Vol] 6.6 10*3/uL 4.4 - 11.3 [facility] Work Phone: No Panel Informationon 10-16 0.0 {/100_WBC} 0.0-0.0 [facility] Work Phone: 43 {mL/min/1.73m2} Abnormal >90 [facility] Work Phone: Comment on above: CALCULATIONS OF ALVARO MATED GFR ARE PERFORMED USING THE 2020 CKD-EPI STUDY REFIT EQUATION WITHOUT THE RACE VARIABLE FOR THE IDMS-TRACEABLE CREATININE METHODS.https://jasn.asnjournals.org/content/early/ N.6983898032 Blood Pressure Cuff Sizeon 0 08-14-2021 Blood Pressure [facility] [place] Work Phone: Blood Pressure Cuff Sizeon 0 04-11-2021 Blood Pressure Cuff Size Adult [facility] Work Phone: Blood Pressure Cuff Sizeon 0 04-05-2021 Blood Pressure Cuff Size Adult [facility] Work Phone: Echocardiogramon 04-04-2021 Echocardiography Please click on the link to view the study images Normal [facility] Work Phone: Complete Blood Count + Diffe rentialon 04-03-2021 Basophils/100 WBC (Bld) 1.2 % 0.0 - 2.0 [facility] Work Phone: [phone] Erythrocyte distribution width (RBC) [Ratio] 14.8 % above high threshold See Below [facility] Work Phone: [phone] Comment on above: Reference Range: 11. 5 - 14.5 Hematocrit (Bld) [Volume fraction] 37.3 % See Below [facility] Work Phone: [phone] Comment on above: Reference Range: 36. 0 - 46.0 Hemoglobin (Bld) [Mass/Vol] 11.8 g/dL below low threshold See Below [facility] Work Phone: Comment on above: Reference Range: 12. 0 - 16.0 Lymphocytes/100 WBC (Bld) 39.5 % See Below [facility] Work Phone: Comment on above: Reference Range: 13. 0 - 44.0 MCHC (RBC) [Mass/Vol] 31.6 g/dL below low threshold See Below [facility] Work Phone: Comment on above: Reference Range: 32. 0 - 36.0 MCV (RBC) [Entitic vol] 105 fL above high threshold 80 - 100 [facility] Work Phone: Monocytes/100 WBC (Bld) 7.0 % 2.0 - 10.0 [facility] Work Phone: Neutrophils/100 WBC (Bld) 49.1 % See Below [facility] Work Phone: Comment on above: Reference Range: 40. 0 - 80.0 Platelets (Bld) [#/Vol] 223 10*3/uL 150 - 450 [facility] Work Phone: RBC (Bld) [#/Vol] 3.56 {x10E12/L} below low threshold See Below [facility] Work Phone: Comment on above: Reference Range: 4.0 0 - 5.20 WBC (Bld) [#/Vol] 5.8 10*3/uL 4.4 - 11.3 [facility] Work Phone: Complete Blood Count + Differential 0.07 {x10E9/L} See Below [facility] Work Phone: Comment on above: Reference Range: 0.0 0 - 0.10 Complete Blood Count + Differential 0.17 {x10E9/L} See Below [facility] Work Phone: Comment on above: Reference Range: 0.0 0 - 0.40 Complete Blood Count + Differential 0.41 {x10E9/L} See Below [facility] Work Phone: Comment on above: Reference Range: 0.0 5 - 0.80 Complete Blood Count + Differential 2.30 {x10E9/L} See Below [facility] Work Phone: Comment on above: Reference Range: 0.8 0 - 3.00 Complete Blood Count + Differential 2.86 {x10E9/L} See Below [facility] Work Phone: Comment on above: Reference Range: 1.6 0 - 5.50 Complete Blood Count + Differential 2.9 % 0.0 - 6.0 [facility] Work Phone: Complete Blood Count + Differential 0.3 % 0.0 - 0.9 [facility] Work Phone: Comment on above: Immature Granulocyte Count (IG) includes promyelocytes, myelocytes and metamyelocytes but does not include bands. Percent differential counts (%) should be interpreted in the context of the absolute cell counts (cells/L). Complete Blood Count + Differential 0.0 {/100_WBC} 0.0-0.0 [facility] Work Phone: Laboratory - Chemistry and C hemistry - challengeon 04-03-2021 Albumin BCP dye [Mass/Vol] 3.7 g/dL 3.4 - 5.0 [facility] Work Phone: ALP [Catalytic activity/Vol] 51 U/L 33 - 136 [facility] Work Phone: ALT With P-5'-P [Catalytic activity/Vol] 14 U/L 7 - 45 [facility] Work Phone: Comment on above: Patients treated wit h Sulfasalazine may generate falsely decreased results for ALT. Anion gap [Moles/Vol] 15 mmol/L 10 - 20 [facility] Work Phone: AST With P-5'-P [Catalytic activity/Vol] 18 U/L 9 - 39 [facility] Work Phone: Bilirubin [Mass/Vol] 0.5 mg/dL 0.0 - 1.2 [facility] Work Phone: Calcium [Mass/Vol] 9.3 mg/dL 8.6 - 10.6 [facility] Work Phone: Chloride [Moles/Vol] 107 mmol/L 98 - 107 [facility] Work Phone: CO2 [Moles/Vol] 27 mmol/L 21 - 32 [facility] Work Phone: Creatinine [Mass/Vol] 1.08 mg/dL above high threshold See Below [facility] Work Phone: Comment on above: Reference Range: 0.5 0 - 1.05 Glucose [Mass/Vol] 85 mg/dL 74 - 99 [facility] Work Phone: Potassium [Moles/Vol] 4.8 mmol/L 3.5 - 5.3 [facility] Work Phone: Protein [Mass/Vol] 6.5 g/dL 6.4 - 8.2 [facility] Work Phone: Sodium [Moles/Vol] 144 mmol/L 136 - 145 [facility] Work Phone: Urea nitrogen [Mass/Vol] 23 mg/dL 6 - 23 [facility] Work Phone: Lipid Panelon 04-03-2021 Cholesterol [Mass/Vol] 146 mg/dL 0 - 199 [facility] Work Phone: Comment on above: . AGE [...] dosing. Cholesterol in HDL [Mass/Vol] 51.2 mg/dL [facility] Work Phone: Comment on above: . AGE VERY LOW LOW N ORMAL HIGH 0-19 Y < 35 < 40 40-45 ---- 20- 24 Y ---- < 40 >45 ---- >24 Y ---- < 40 40-60 >60. Cholesterol in LDL [Mass/Vol] 75 mg/dL 0 - 99 [facility] Work Phone: Comment on above: . NEAR BORD AGE TORI RABLE OPTIMAL HIGH HIGH VERY HIGH 0-19 Y 0 - 109 --- 110-129 >/= 130 ---- 20-24 Y 0 - 119 --- 120-159 >/= 160 ---- >24 Y 0 - 99 100-129 130-159 160-189 >/=190. Cholesterol.total/Cho lesterol in HDL [Mass ratio] 2.9 {ratio} [facility] Work Phone: Comment on above: REF VALUESDESIRABLE < 3.4HIGH RISK > 5.0 Triglyceride [Mass/Vol] 98 mg/dL 0 - 149 [facility] Work Phone: Comment on above: . AGE [...] Panel 20 mg/dL 0 - 40 [facility] Work Phone: No Panel Informationon 04-03 50 {mL/min/1.73m2} Abnormal >90 [facility] Work Phone: Comment on above: CALCULATIONS OF ALVARO MATED GFR ARE PERFORMED USING THE 2020 CKD-EPI STUDY REFIT EQUATION WITHOUT THE RACE VARIABLE FOR THE IDMS-TRACEABLE CREATININE METHODS.https://jasn.asnjournals.org/content// N.9350566450 Blood Pressure Cuff Sizeon 0 03-08-2021 Fall risk assessment a) No falls within the last year [facility] Work Phone: Tobacco use status [facility] b) No [facility] Work Phone: Blood Pressure Cuff Size Adult [facility] Work Phone: Laboratory - Chemistry and C hemistry - challengeon 01-15-2021 Anion gap [Moles/Vol] 12 mmol/L 10 - 20 [facility] Work Phone: Calcium [Mass/Vol] 9.8 mg/dL 8.6 - 10.6 [facility] Work Phone: Chloride [Moles/Vol] 106 mmol/L 98 - 107 [facility] Work Phone: CO2 [Moles/Vol] 27 mmol/L 21 - 32 [facility] Work Phone: Creatinine [Mass/Vol] 1.08 mg/dL above high threshold See Below [facility] Work Phone: Comment on above: Reference Range: 0.5 0 - 1.05 Glucose [Mass/Vol] 90 mg/dL 74 - 99 [facility] Work Phone: Potassium [Moles/Vol] 4.6 mmol/L 3.5 - 5.3 [facility] Work Phone: [phone] Sodium [Moles/Vol] 140 mmol/L 136 - 145 [facility] Work Phone: Urea nitrogen [Mass/Vol] 23 mg/dL 6 - 23 [facility] Work Phone: [phone] Laboratory - Hematology and Cell countson 01-15-2021 Erythrocyte distribution width (RBC) [Ratio] 13.2 % See Below [facility] Work Phone: Comment on above: Reference Range: 11. 5 - 14.5 Hematocrit (Bld) [Volume fraction] 36.9 % See Below [facility] Work Phone: Comment on above: Reference Range: 36. 0 - 46.0 Hemoglobin (Bld) [Mass/Vol] 11.5 g/dL below low threshold See Below [facility] Work Phone: Comment on above: Reference Range: 12. 0 - 16.0 MCHC (RBC) [Mass/Vol] 31.2 g/dL below low threshold See Below [facility] Work Phone: Comment on above: Reference Range: 32. 0 - 36.0 MCV (RBC) [Entitic vol] 106 fL above high threshold 80 - 100 [facility] Work Phone: Platelets (Bld) [#/Vol] 233 10*3/uL 150 - 450 [facility] Work Phone: RBC (Bld) [#/Vol] 3.47 {x10E12/L} below low threshold See Below [facility] Work Phone: Comment on above: Reference Range: 4.0 0 - 5.20 WBC (Bld) [#/Vol] 7.5 10*3/uL 4.4 - 11.3 [facility] Work Phone: No Panel Informationon 01-15 58 {mL/min/1.73m2} Abnormal >60 [facility] Work Phone: Comment on above: CALCULATIONS OF ALVARO MATED GFR ARE PERFORMED USING THE MDRD STUDY EQUATION FOR THE IDMS-TRACEABLE CREATININE METHODS. CLIN CHEM 2007;53:766-72 48 {mL/min/1.73m2} Abnormal >60 [facility] Work Phone: 0.0 {/100_WBC} 0.0-0.0 [facility] Work Phone: Tobacco Screening.on 021 Tobacco use status [facility] b) No [facility] Work Phone: IO UA (automated w/o microsc opy)on 10-29-2020 Protein (U) [Mass/Vol] Trace [facility] Work Phone: IO UA (automated w/o microscopy) Negative [facility] Work Phone: IO UA (automated w/o microscopy) Normal (0.2-1.0 mg/dl) [facility] Work Phone: IO UA (automated w/o microscopy) 6.0 1 [facility] Work Phone: IO UA (automated w/o microscopy) 1.020 1 [facility] Work Phone: IO UA (automated w/o microscopy) Clear [facility] Work Phone: IO UA (automated w/o microscopy) Yellow [facility] Work Phone: [phone] Tobacco Screening.on 021 Last menstrual period start date hyst [facility] Work Phone: Tobacco use status [facility] b) No [facility] Work Phone: Laboratory - Chemistry and C hemistry - challengeon 10-24-2020 Anion gap [Moles/Vol] 15 mmol/L 10 - 20 [facility] Work Phone: [phone] Calcium [Mass/Vol] 9.5 mg/dL 8.6 - 10.6 [facility] Work Phone: [phone] Chloride [Moles/Vol] 103 mmol/L 98 - 107 [facility] Work Phone: [phone] CO2 [Moles/Vol] 25 mmol/L 21 - 32 [facility] Work Phone: [phone] Creatinine [Mass/Vol] 0.88 mg/dL See Below [facility] Work Phone: Comment on above: Reference Range: 0.5 0 - 1.05 Glucose [Mass/Vol] 102 mg/dL above high threshold 74 - 99 [facility] Work Phone: [phone] Potassium [Moles/Vol] 4.5 mmol/L 3.5 - 5.3 [facility] Work Phone: Sodium [Moles/Vol] 138 mmol/L 136 - 145 [facility] Work Phone: Urea nitrogen [Mass/Vol] 19 mg/dL 6 - 23 [facility] Work Phone: Laboratory - Hematology and Cell countson 10-24-2020 Erythrocyte distribution width (RBC) [Ratio] 14.5 % See Below [facility] Work Phone: Comment on above: Reference Range: 11. 5 - 14.5 Hematocrit (Bld) [Volume fraction] 36.8 % See Below [facility] Work Phone: Comment on above: Reference Range: 36. 0 - 46.0 Hemoglobin (Bld) [Mass/Vol] 11.5 g/dL below low threshold See Below [facility] Work Phone: Comment on above: Reference Range: 12. 0 - 16.0 MCHC (RBC) [Mass/Vol] 31.3 g/dL below low threshold See Below [facility] Work Phone: Comment on above: Reference Range: 32. 0 - 36.0 MCV (RBC) [Entitic vol] 105 fL above high threshold 80 - 100 [facility] Work Phone: Platelets (Bld) [#/Vol] 450 10*3/uL 150 - 450 [facility] Work Phone: RBC (Bld) [#/Vol] 3.52 {x10E12/L} below low threshold See Below [facility] Work Phone: Comment on above: Reference Range: 4.0 0 - 5.20 WBC (Bld) [#/Vol] 9.1 10*3/uL 4.4 - 11.3 [facility] Work Phone: No Panel Informationon 10-24 0.0 {/100_WBC} 0.0-0.0 [facility] Work Phone: >60 >60 [facility] Work Phone: Comment on above: CALCULATIONS OF ALVARO MATED GFR ARE PERFORMED USING THE MDRD STUDY EQUATION FOR THE IDMS-TRACEABLE CREATININE METHODS. CLIN CHEM 2007;53:766-72 Comp Panel with Mg Reflexon 10-22-2020 ALP [Catalytic activity/Vol] 73 U/L Normal 38-126 [facility] Comment on above: Performed By: #### Fernando Hammond CMP3M #### [facility] [address] [place] [address] ALT [Catalytic activity/Vol] 23 U/L Normal 0-34 [facility] Comment on above: Result Comment: The ALT test is performed by an updated assay method. Please note that the reference intervals have been changed and are now sex specific. Performed By: #### Fernando Hammond CMP3M #### [facility] [address] [place] [address] AST [Catalytic activity/Vol] 49 U/L High 15-46 [facility] Comment on above: Performed By: #### Fernando Hammond CMP3M #### [facility] [address] [place] [address] Calcium [Mass/Vol] 10.0 mg/dL Normal 8.4-10.4 [facility] Comment on above: Performed By: #### Fernando Hammond CMP3M #### [facility] [address] [place] [address] Glucose [Mass/Vol] 108 mg/dL High 70-100 [facility] Comment on above: Performed By: #### Fernando Hammond CMP3M #### [facility] [address] [place] [address] Protein [Mass/Vol] 6.9 g/dL Normal 6.3-8.2 [facility] Comment on above: Performed By: #### Fernando Hammond CMP3M #### [facility] [employer] [facility] [address] [place] [address] Urea nitrogen [Mass/Vol] 16 mg/dL Normal 9-20 [facility] Comment on above: Performed By: #### Fernando Hammond CMP3M #### [facility] [employer] [facility] [address] [place] [address] Anion gap [Moles/Vol] 7 mmol/L Normal 3-13 [facility] Comment on above: Performed By: #### M G3, CMP3M #### [facility] [address] [place] [address] Bilirubin [Mass/Vol] 0.7 mg/dL Normal 0.2-1.3 [facility] Comment on above: Performed By: #### M G3, CMP3M #### [facility] [address] [place] [address] CO2 [Moles/Vol] 25 mmol/L Normal 22-30 [facility] Comment on above: Performed By: #### M G3, CMP3M #### [facility] [address] [place] [address] Creatinine [Mass/Vol] 0.69 mg/dL Normal 0.52-1.25 [facility] Comment on above: Performed By: #### M G3, CMP3M #### [facility] [address] [place] [address] GFR/1.73 sq M.predicted among blacks MDRD (S/P/Bld) [Vol rate/Area] mL/min/{1.73_m2} Normal >60 [facility] Comment on above: Performed By: #### M G3, CMP3M #### [facility] [address] [place] [address] GFR/1.73 sq M.predicted among non-blacks MDRD (S/P/Bld) [Vol rate/Area] 79.6 mL/min/{1.73_m2} Normal >60 [facility] Comment on above: Result Comment: KDIG O [...] Performed By: #### Fernando Hammond CMP3M #### [facility] [address] [place] [address] Albumin [Mass/Vol] 3.4 g/dL Low 3.5-5.0 [facility] Comment on above: Performed By: #### Fernando Hammond CMP3M #### [facility] [address] [place] [address] Chloride [Moles/Vol] 105 mmol/L Normal 98-107 [facility] Comment on above: Performed By: #### Fernando Hammond CMP3M #### [facility] [address] [place] [address] Potassium [Moles/Vol] 5.3 mmol/L High 3.5-5.1 [facility] Comment on above: Performed By: #### Fernando Hammond CMP3M #### [facility] [address] [place] [address] Sodium [Moles/Vol] 137 mmol/L Normal 135-145 [facility] Comment on above: Performed By: #### Fernando Hammond CMP3M #### [facility] [address] [place] [address] Hemogram w/ Autodiffon 10-22 Abs Baso Cnt 0.1 10*3/uL Normal 0.0-0.2 [facility] Comment on above: Performed By: #### Fernando Hammond CMP3M #### [facility] [address] [place] [address] Abs Neutrophile Cnt 6.0 10*3/uL Normal 1.8-7.0 [facility] Comment on above: Performed By: #### Fernando Hammond CMP3M #### [facility] [address] [place] [address] Basophils/100 WBC (Bld) 0.8 % Normal 0.0-2.0 [facility] Comment on above: Performed By: #### Fernando Hammond CMP3M #### [facility] [address] [place] [address] Eosinophils (Bld) [#/Vol] 0.1 10*3/uL Normal 0.0-0.5 [facility] Comment on above: Performed By: #### Fernando Hammond CMP3M #### [facility] [address] [place] [address] Eosinophils/100 WBC (Bld) 1.5 % Normal 1.0-6.0 [facility] Comment on above: Performed By: #### Fernando Hammond CMP3M #### [facility] [address] [place] [address] Erythrocyte distribution width (RBC) [Ratio] 13.9 % Normal 11.5-14.5 [facility] Comment on above: Performed By: #### Fernando Hammond CMP3M #### [facility] [address] [place] [address] Granulocytes/100 WBC (Bld) 66.3 % Normal 40.0-80.0 [facility] Comment on above: Performed By: #### Fernando Hammond CMP3M #### [facility] [address] [place] [address] Hematocrit (Bld) [Volume fraction] 35.4 % Normal 35.0-47.0 [facility] Comment on above: Performed By: #### Fernando Hammnod CMP3M #### [facility] [address] [place] [address] Hemoglobin (Bld) [Mass/Vol] 12.4 g/dL Normal 11.7-16.0 [facility] Comment on above: Performed By: #### Fernando Hammond CMP3M #### [facility] [address] [place] [address] Lymphocytes (Bld) [#/Vol] 2.2 10*3/uL Normal 1.0-4.3 [facility] Comment on above: Performed By: #### Fernando Hammond CMP3M #### [facility] [address] [place] [address] Lymphocytes/100 WBC (Bld) 23.6 % Normal 20.0-40.0 [facility] Comment on above: Performed By: #### Fernando Hammond CMP3M #### [facility] [address] [place] [address] MCH (RBC) [Entitic mass] 34.3 pg High 26.0-34.0 [facility] Comment on above: Performed By: #### Fernando Hammond CMP3M #### [facility] [address] [place] [address] MCHC 34.9 % Normal 32.0-36.0 [facility] Comment on above: Performed By: #### Fernando Hammond CMP3M #### [facility] [address] [place] [address] MCV (RBC) [Entitic vol] 98.3 fL High 79.0-98.0 [facility] Comment on above: Performed By: #### Fernando Hammond CMP3M #### [facility] [address] [place] [address] Monocytes (Bld) [#/Vol] 0.7 10*3/uL Normal 0.0-0.8 [facility] Comment on above: Performed By: #### Fernando Hammond CMP3M #### [facility] [address] [place] [address] Monocytes/100 WBC (Bld) 7.8 % Normal 2.0-10.0 [facility] Comment on above: Performed By: #### Fernando Hammond CMP3M #### [facility] [address] [place] [address] Platelet mean volume (Bld) [Entitic vol] 7.0 fL Low 7.4-10.4 [facility] Comment on above: Performed By: #### Fernando Hammond CMP3M #### [facility] [address] [place] [address] Platelets (Bld) [#/Vol] 301 10*3/uL Normal 140-440 [facility] Comment on above: Performed By: #### Fernando Hammond CMP3M #### [facility] [address] [place] [address] RBC (Bld) [#/Vol] 3.60 10*6/uL Low 3.80-5.20 [facility] Comment on above: Performed By: #### Fernando Hammond CMP3M #### [facility] [address] [place] [address] WBC (Bld) [#/Vol] 9.1 10*3/uL Normal 3.6-10.7 [facility] Comment on above: Performed By: #### Fernando Hammond CMP3M #### [facility] [address] [place] [address] Comp Panel with Mg Reflexon 10-21-2020 ALP [Catalytic activity/Vol] 72 U/L Normal 38-126 [facility] Comment on above: Performed By: #### Fernando Hammond CMP3M #### [facility] [address] [place] [address] ALT [Catalytic activity/Vol] 14 U/L Normal 0-34 [facility] Comment on above: Result Comment: The ALT test is performed by an updated assay method. Please note that the reference intervals have been changed and are now sex specific. Performed By: #### Fernando Hammond CMP3M #### [facility] [address] [place] [address] Calcium [Mass/Vol] 9.3 mg/dL Normal 8.4-10.4 [facility] Comment on above: Performed By: #### Fernando Hammond CMP3M #### [facility] [address] [place] [address] Glucose [Mass/Vol] 101 mg/dL High 70-100 [facility] Comment on above: Performed By: #### Fernando Hammond CMP3M #### [facility] [address] [place] [address] Urea nitrogen [Mass/Vol] 11 mg/dL Normal 9-20 [facility] Comment on above: Performed By: #### Fernando Hammond CMP3M #### [facility] [address] [place] [address] Anion gap [Moles/Vol] 5 mmol/L Normal 3-13 [facility] Comment on above: Performed By: #### Fernando Hammond CMP3M #### [facility] [address] [place] [address] AST [Catalytic activity/Vol] 22 U/L Normal 15-46 [facility] Comment on above: Performed By: #### Fernando Hammond CMP3M #### [facility] [address] [place] [address] Bilirubin [Mass/Vol] 0.6 mg/dL Normal 0.2-1.3 [facility] Comment on above: Performed By: #### M G3, CMP3M #### [facility] [address] [place] [address] CO2 [Moles/Vol] 27 mmol/L Normal 22-30 [facility] Comment on above: Performed By: #### M G3, CMP3M #### [facility] [address] [place] [address] Creatinine [Mass/Vol] 0.55 mg/dL Normal 0.52-1.25 [facility] Comment on above: Performed By: #### M G3, CMP3M #### [facility] [address] [place] [address] GFR/1.73 sq M.predicted among blacks MDRD (S/P/Bld) [Vol rate/Area] mL/min/{1.73_m2} Normal >60 [facility] Comment on above: Performed By: #### M G3, CMP3M #### [facility] [address] [place] [address] GFR/1.73 sq M.predicted among non-blacks MDRD (S/P/Bld) [Vol rate/Area] 85.8 mL/min/{1.73_m2} Normal >60 [facility] Comment on above: Result Comment: KDIG O [...] tubular creatinine secretion. Performed By: #### Fernando G3, CMP3M #### [facility] [address] [place] [address] Protein [Mass/Vol] 6.5 g/dL Normal 6.3-8.2 [facility] Comment on above: Performed By: #### M G3, CMP3M #### [facility] [address] [place] [address] Potassium [Moles/Vol] 4.6 mmol/L Normal 3.5-5.1 [facility] Comment on above: Performed By: #### M G3, CMP3M #### [facility] [address] [place] [address] Sodium [Moles/Vol] 138 mmol/L Normal 135-145 [facility] Comment on above: Performed By: #### Fernando Hammond, CMP3M #### [facility] [address] [place] [address] Albumin [Mass/Vol] 3.2 g/dL Low 3.5-5.0 [facility] Comment on above: Performed By: #### Fernando Hammond, CMP3M #### [facility] [address] [place] [address] Chloride [Moles/Vol] 107 mmol/L Normal 98-107 [facility] Comment on above: Performed By: #### Fernando G3, CMP3M #### [facility] [address] [place] [address] Hemogram w/ Autodiffon 10-21 Abs Baso Cnt 0.0 10*3/uL Normal 0.0-0.2 [facility] Comment on above: Performed By: #### M G3, CMP3M #### [facility] [address] [place] [address] Abs Neutrophile Cnt 8.4 10*3/uL High 1.8-7.0 [facility] Comment on above: Performed By: #### M G3, CMP3M #### [facility] [address] [place] [address] Basophils/100 WBC (Bld) 0.4 % Normal 0.0-2.0 [facility] Comment on above: Performed By: #### Fernando G3, CMP3M #### [facility] [address] [place] [address] Eosinophils (Bld) [#/Vol] 0.2 10*3/uL Normal 0.0-0.5 [facility] Comment on above: Performed By: #### M G3, CMP3M #### [facility] [address] [place] [address] Eosinophils/100 WBC (Bld) 1.3 % Normal 1.0-6.0 [facility] Comment on above: Performed By: #### M G3, CMP3M #### [facility] [address] [place] [address] Erythrocyte distribution width (RBC) [Ratio] 13.7 % Normal 11.5-14.5 [facility] Comment on above: Performed By: #### M G3, CMP3M #### [facility] [address] [place] [address] Granulocytes/100 WBC (Bld) 72.7 % Normal 40.0-80.0 [facility] Comment on above: Performed By: #### M G3, CMP3M #### [facility] [employer] [facility] [address] [place] [address] Hematocrit (Bld) [Volume fraction] 34.3 % Low 35.0-47.0 [facility] Comment on above: Performed By: #### M G3, CMP3M #### [facility] [address] [place] [address] Hemoglobin (Bld) [Mass/Vol] 11.5 g/dL Low 11.7-16.0 [facility] Comment on above: Performed By: #### M G3, CMP3M #### [facility] [address] [place] [address] Lymphocytes (Bld) [#/Vol] 2.0 10*3/uL Normal 1.0-4.3 [facility] Comment on above: Performed By: #### M G3, CMP3M #### [facility] [address] [place] [address] Lymphocytes/100 WBC (Bld) 17.4 % Low 20.0-40.0 [facility] Comment on above: Performed By: #### Fernando G3, CMP3M #### [facility] [address] [place] [address] MCH (RBC) [Entitic mass] 33.1 pg Normal 26.0-34.0 [facility] Comment on above: Performed By: #### M G3, CMP3M #### [facility] [address] [place] [address] MCHC 33.5 % Normal 32.0-36.0 [facility] Comment on above: Performed By: #### M G3, CMP3M #### [facility] [address] [place] [address] MCV (RBC) [Entitic vol] 98.7 fL High 79.0-98.0 [facility] Comment on above: Performed By: #### M G3, CMP3M #### [facility] [address] [place] [address] Monocytes (Bld) [#/Vol] 0.9 10*3/uL High 0.0-0.8 [facility] Comment on above: Performed By: #### Fernando G3, CMP3M #### [facility] [address] [place] [address] Monocytes/100 WBC (Bld) 8.2 % Normal 2.0-10.0 [facility] Comment on above: Performed By: #### M G3, CMP3M #### [facility] [address] [place] [address] Platelet mean volume (Bld) [Entitic vol] 7.6 fL Normal 7.4-10.4 [facility] Comment on above: Performed By: #### Fernando G3, CMP3M #### [facility] [address] [place] [address] Platelets (Bld) [#/Vol] 284 10*3/uL Normal 140-440 [facility] Comment on above: Performed By: #### M G3, CMP3M #### [facility] [address] [place] [address] RBC (Bld) [#/Vol] 3.47 10*6/uL Low 3.80-5.20 [facility] Comment on above: Performed By: #### Fernando Hammond CMP3M #### [facility] [employer] [facility] [address] [place] [address] WBC (Bld) [#/Vol] 11.5 10*3/uL High 3.6-10.7 [facility] Comment on above: Performed By: #### Fernando Hammond, CMP3M #### [facility] [address] [place] [address] CULTURE BLOODon 10-20-2020 Microscopic examination of blood, culture CULTURE BLOOD --> Status: F No growth at 5 days. Normal [facility] Comment on above: Performed By: #### Fernando Hammond CMP3M #### [facility] [address] [place] [address] CULTURE BLOOD (Two)on 2020 Microscopic examination of blood, culture CULTURE BLOOD (Two) --> Status: F No growth at 5 days. Normal [facility] Comment on above: Performed By: #### Fernando Hammond CMP3M #### [facility] [address] [place] [address] Comp Panel with Mg Reflexon 10-19-2020 ALP [Catalytic activity/Vol] 70 U/L Normal 38-126 [facility] Comment on above: Performed By: #### Fernando Hammond CMP3M #### [facility] [address] [place] [address] ALT [Catalytic activity/Vol] 16 U/L Normal 0-34 [facility] Comment on above: Result Comment: The ALT test is performed by an updated assay method. Please note that the reference intervals have been changed and are now sex specific. Performed By: #### Fernando Hammond CMP3M #### [facility] [employer] [facility] [address] [place] [address] Calcium [Mass/Vol] 8.3 mg/dL Low 8.4-10.4 [facility] Comment on above: Performed By: #### Fernando Hammond CMP3M #### [facility] [address] [place] [address] Glucose [Mass/Vol] 108 mg/dL High 70-100 [facility] Comment on above: Performed By: #### Fernando Hammond CMP3M #### [facility] [address] [place] [address] Urea nitrogen [Mass/Vol] 11 mg/dL Normal 9-20 [facility] Comment on above: Performed By: #### Fernando G3 CMP3M #### [facility] [address] [place] [address] Anion gap [Moles/Vol] 2 mmol/L Low 3-13 [facility] Comment on above: Performed By: #### Fernando G3 CMP3M #### [facility] [address] [place] [address] AST [Catalytic activity/Vol] 35 U/L Normal 15-46 [facility] Comment on above: Performed By: #### Fernando G3 CMP3M #### [facility] [address] [place] [address] Bilirubin [Mass/Vol] 0.8 mg/dL Normal 0.2-1.3 [facility] Comment on above: Performed By: #### Fernando G3 CMP3M #### [facility] [address] [place] [address] CO2 [Moles/Vol] 31 mmol/L High 22-30 [facility] Comment on above: Performed By: #### Fernando Hmamond CMP3M #### [facility] [address] [place] [address] Creatinine [Mass/Vol] 0.48 mg/dL Low 0.52-1.25 [facility] Comment on above: Performed By: #### Fernando G3 CMP3M #### [facility] [address] [place] [address] GFR/1.73 sq M.predicted among blacks MDRD (S/P/Bld) [Vol rate/Area] mL/min/{1.73_m2} Normal >60 [facility] Comment on above: Performed By: #### Fernando G3, CMP3M #### [facility] [address] [place] [address] GFR/1.73 sq M.predicted among non-blacks MDRD (S/P/Bld) [Vol rate/Area] 89.7 mL/min/{1.73_m2} Normal >60 [facility] Comment on above: Result Comment: KDIG O [...] Performed By: #### Fernando Hammond CMP3M #### [facility] [address] [place] [address] Protein [Mass/Vol] 6.2 g/dL Low 6.3-8.2 [facility] Comment on above: Performed By: #### Fernando Hammond CMP3M #### [facility] [address] [place] [address] Chloride [Moles/Vol] 104 mmol/L Normal 98-107 [facility] Comment on above: Performed By: #### Fernando Hammond CMP3M #### [facility] [address] [place] [address] Potassium [Moles/Vol] 3.7 mmol/L Normal 3.5-5.1 [facility] Comment on above: Performed By: #### Fernando Hammond CMP3M #### [facility] [address] [place] [address] Sodium [Moles/Vol] 137 mmol/L Normal 135-145 [facility] Comment on above: Performed By: #### Fernando Hammond CMP3M #### [facility] [address] [place] [address] Albumin [Mass/Vol] 3.1 g/dL Low 3.5-5.0 [facility] Comment on above: Performed By: #### Fernando Hammond CMP3M #### [facility] [address] [place] [address] Hemogram w/ Autodiffon 10-19 Abs Baso Cnt 0.1 10*3/uL Normal 0.0-0.2 [facility] Comment on above: Performed By: #### Fernando Hammond CMP3M #### [facility] [address] [place] [address] Abs Neutrophile Cnt 5.6 10*3/uL Normal 1.8-7.0 [facility] Comment on above: Performed By: #### Fernando Hammond CMP3M #### [facility] [address] [place] [address] Basophils/100 WBC (Bld) 0.7 % Normal 0.0-2.0 [facility] Comment on above: Performed By: #### Fernando Hammond CMP3M #### [facility] [address] [place] [address] Eosinophils (Bld) [#/Vol] 0.1 10*3/uL Normal 0.0-0.5 [facility] Comment on above: Performed By: #### Fernando Hammond CMP3M #### [facility] [address] [place] [address] Eosinophils/100 WBC (Bld) 0.9 % Low 1.0-6.0 [facility] Comment on above: Performed By: #### Fernando Hammond CMP3M #### [facility] [address] [place] [address] Erythrocyte distribution width (RBC) [Ratio] 13.2 % Normal 11.5-14.5 [facility] Comment on above: Performed By: #### Fernando Hammond CMP3M #### [facility] [address] [place] [address] Granulocytes/100 WBC (Bld) 65.2 % Normal 40.0-80.0 [facility] Comment on above: Performed By: #### Fernando Hammond CMP3M #### [facility] [address] [place] [address] Hematocrit (Bld) [Volume fraction] 32.6 % Low 35.0-47.0 [facility] Comment on above: Performed By: #### Fernando Hammond CMP3M #### [facility] [address] [place] [address] Hemoglobin (Bld) [Mass/Vol] 11.2 g/dL Low 11.7-16.0 [facility] Comment on above: Performed By: #### Fernando Hammond CMP3M #### [facility] [address] [place] [address] Lymphocytes (Bld) [#/Vol] 1.7 10*3/uL Normal 1.0-4.3 [facility] Comment on above: Performed By: #### Fernando Hammond CMP3M #### [facility] [address] [place] [address] Lymphocytes/100 WBC (Bld) 19.6 % Low 20.0-40.0 [facility] Comment on above: Performed By: #### Fernando Hammond CMP3M #### [facility] [address] [place] [address] MCH (RBC) [Entitic mass] 33.6 pg Normal 26.0-34.0 [facility] Comment on above: Performed By: #### Fernando Hammond CMP3M #### [facility] [address] [place] [place] [address] MCHC 34.3 % Normal 32.0-36.0 [facility] Comment on above: Performed By: #### Fernando Hammond CMP3M #### [facility] [address] [place] [address] MCV (RBC) [Entitic vol] 98.1 fL High 79.0-98.0 [facility] Comment on above: Performed By: #### Fernando Hammond CMP3M #### [facility] [address] [place] [address] Monocytes (Bld) [#/Vol] 1.2 10*3/uL High 0.0-0.8 [facility] Comment on above: Performed By: #### Fernando Hammond CMP3M #### [facility] [address] [place] [address] Monocytes/100 WBC (Bld) 13.6 % High 2.0-10.0 [facility] Comment on above: Performed By: #### Fernando Hammond CMP3M #### [facility] [address] [place] [address] Platelet mean volume (Bld) [Entitic vol] 7.5 fL Normal 7.4-10.4 [facility] Comment on above: Performed By: #### Fernando Hammond CMP3M #### [facility] [address] [place] [address] Platelets (Bld) [#/Vol] 231 10*3/uL Normal 140-440 [facility] Comment on above: Performed By: #### Fernando Hammond CMP3M #### [facility] [address] [place] [address] RBC (Bld) [#/Vol] 3.33 10*6/uL Low 3.80-5.20 [facility] Comment on above: Performed By: #### Fernando Hammond CMP3M #### [facility] [address] [place] [address] WBC (Bld) [#/Vol] 8.7 10*3/uL Normal 3.6-10.7 [facility] Comment on above: Performed By: #### Fernando Hammond CMP3M #### [facility] [address] [place] [address] Basic Metabolic Panelon 09-0 -2020 Calcium [Mass/Vol] 8.0 mg/dL Low 8.4-10.4 [facility] Comment on above: Performed By: #### Fernando Hammond CMP3M #### [facility] [address] [place] [address] Glucose [Mass/Vol] 147 mg/dL High 70-100 [facility] Comment on above: Performed By: #### Fernando Hammond CMP3M #### [facility] [address] [place] [address] Urea nitrogen [Mass/Vol] 9 mg/dL Normal 9-20 [facility] Comment on above: Performed By: #### Fernando Hammond CMP3M #### [facility] [address] [place] [address] Anion gap [Moles/Vol] 6 mmol/L Normal 3-13 [facility] Comment on above: Performed By: #### Fernando Hammond CMP3M #### [facility] [address] [place] [address] CO2 [Moles/Vol] 33 mmol/L High 22-30 [facility] Comment on above: Performed By: #### M Manish CMP3M #### [facility] [address] [place] [address] Creatinine [Mass/Vol] 0.55 mg/dL Normal 0.52-1.25 [facility] Comment on above: Performed By: #### M G3 CMP3M #### [facility] [address] [place] [address] GFR/1.73 sq M.predicted among blacks MDRD (S/P/Bld) [Vol rate/Area] mL/min/{1.73_m2} Normal >60 [facility] Comment on above: Performed By: #### M Manish CMP3M #### [facility] [address] [place] [address] GFR/1.73 sq M.predicted among non-blacks MDRD (S/P/Bld) [Vol rate/Area] 85.8 mL/min/{1.73_m2} Normal >60 [facility] Comment on above: Result Comment: KDIG O [...] renal tubular creatinine secretion. Performed By: #### M G3 CMP3M #### [facility] [address] [place] [address] Potassium [Moles/Vol] 3.4 mmol/L Low 3.5-5.1 [facility] Comment on above: Performed By: #### M G3, CMP3M #### [facility] [address] [place] [address] Chloride [Moles/Vol] 100 mmol/L Normal 98-107 [facility] Comment on above: Performed By: #### M G3, CMP3M #### [facility] [address] [place] [address] Sodium [Moles/Vol] 139 mmol/L Normal 135-145 [facility] Comment on above: Performed By: #### M G3, CMP3M #### [facility] [address] [place] [address] Calcium [Mass/Vol] 7.9 mg/dL Low 8.4-10.4 [facility] Comment on above: Performed By: #### M G3, CMP3M #### [facility] [address] [place] [address] Anion gap [Moles/Vol] 5 mmol/L Normal 3-13 [facility] Comment on above: Performed By: #### M G3, CMP3M #### [facility] [address] [place] [address] CO2 [Moles/Vol] 34 mmol/L High 22-30 [facility] Comment on above: Performed By: #### M G3, CMP3M #### [facility] [address] [place] [address] Creatinine [Mass/Vol] 0.44 mg/dL Low 0.52-1.25 [facility] Comment on above: Performed By: #### Fernando G3, CMP3M #### [facility] [address] [place] [address] eGFR OTHER > 90.0 Normal >60 [facility] Comment on above: Result Comment: KDIG O [...] Performed By: #### Fernando Hammond CMP3M #### [facility] [address] [place] [address] GFR/1.73 sq M.predicted among blacks MDRD (S/P/Bld) [Vol rate/Area] mL/min/{1.73_m2} Normal >60 [facility] Comment on above: Performed By: #### Fernando Hammond CMP3M #### [facility] [address] [place] [address] Glucose [Mass/Vol] 123 mg/dL High 70-100 [facility] Comment on above: Performed By: #### Fernando Hammond CMP3M #### [facility] [address] [place] [address] Urea nitrogen [Mass/Vol] 5 mg/dL Low 9-20 [facility] Comment on above: Performed By: #### Fernando Hammond CMP3M #### [facility] [address] [place] [address] Chloride [Moles/Vol] 99 mmol/L Normal 98-107 [facility] Comment on above: Performed By: #### Fernando Hammond CMP3M #### [facility] [address] [place] [address] Potassium [Moles/Vol] 2.6 mmol/L Critically low 3.5-5.1 [facility] Comment on above: Performed By: #### Fernando Hammond CMP3M #### [facility] [address] [place] [address] Sodium [Moles/Vol] 138 mmol/L Normal 135-145 [facility] Comment on above: Performed By: #### Fernando Hammond CMP3M #### [facility] [address] [place] [address] Comp Panel with Mg Reflexon 10-18-2020 Calcium [Mass/Vol] 7.8 mg/dL Low 8.4-10.4 [facility] Comment on above: Performed By: #### Fernando Hammond CMP3M #### [facility] [address] [place] [address] ALP [Catalytic activity/Vol] 46 U/L Normal 38-126 [facility] Comment on above: Performed By: #### Fernando G3 CMP3M #### [facility] [address] [place] [address] ALT [Catalytic activity/Vol] 13 U/L Normal 0-34 [facility] Comment on above: Result Comment: The ALT test is performed by an updated assay method. Please note that the reference intervals have been changed and are now sex specific. Performed By: #### Fernando Hammond CMP3M #### [facility] [address] [place] [address] Anion gap [Moles/Vol] 3 mmol/L Normal 3-13 [facility] Comment on above: Performed By: #### Fernando Hammond CMP3M #### [facility] [address] [place] [address] AST [Catalytic activity/Vol] 30 U/L Normal 15-46 [facility] Comment on above: Performed By: #### Fernando Hammond CMP3M #### [facility] [address] [place] [address] Bilirubin [Mass/Vol] 0.7 mg/dL Normal 0.2-1.3 [facility] Comment on above: Performed By: #### Fernando Hammond CMP3M #### [facility] [address] [place] [address] CO2 [Moles/Vol] 33 mmol/L High 22-30 [facility] Comment on above: Performed By: #### Fernando Hammond CMP3M #### [facility] [address] [place] [address] Glucose [Mass/Vol] 100 mg/dL Normal 70-100 [facility] Comment on above: Performed By: #### Fernando G3 CMP3M #### [facility] [address] [place] [address] Protein [Mass/Vol] 5.8 g/dL Low 6.3-8.2 [facility] Comment on above: Performed By: #### Fernando Hammond CMP3M #### [facility] [address] [place] [address] Urea nitrogen [Mass/Vol] 6 mg/dL Low 9-20 [facility] Comment on above: Performed By: #### Fernando Hammond, CMP3M #### [facility] [address] [place] [address] Creatinine [Mass/Vol] 0.42 mg/dL Low 0.52-1.25 [facility] Comment on above: Performed By: #### Fernando Hammond, CMP3M #### [facility] [address] [place] [address] Albumin [Mass/Vol] 2.9 g/dL Low 3.5-5.0 [facility] Comment on above: Performed By: #### Fernando Hammond CMP3M #### [facility] [address] [place] [address] Chloride [Moles/Vol] 100 mmol/L Normal 98-107 [facility] Comment on above: Performed By: #### Fernando Hammond CMP3M #### [facility] [address] [place] [address] Potassium [Moles/Vol] 2.6 mmol/L Critically low 3.5-5.1 [facility] Comment on above: Performed By: #### Fernando Hammond, CMP3M #### [facility] [address] [place] [address] Sodium [Moles/Vol] 136 mmol/L Normal 135-145 [facility] Comment on above: Performed By: #### Fernando Hammond CMP3M #### [facility] [address] [place] [address] Hemogram w/ Autodiffon 10-18 Abs Baso Cnt 0.0 10*3/uL Normal 0.0-0.2 [facility] Comment on above: Performed By: #### H EMDF #### [facility] [address] [place] [address] Abs Neutrophile Cnt 2.6 10*3/uL Normal 1.8-7.0 [facility] Comment on above: Performed By: #### H EMDF #### [facility] [address] [place] [address] Basophils/100 WBC (Bld) 0.4 % Normal 0.0-2.0 [facility] Comment on above: Performed By: #### H EMDF #### [facility] [address] [place] [address] Eosinophils (Bld) [#/Vol] 0.1 10*3/uL Normal 0.0-0.5 [facility] Comment on above: Performed By: #### H EMDF #### [facility] [address] [place] [address] Eosinophils/100 WBC (Bld) 1.5 % Normal 1.0-6.0 [facility] Comment on above: Performed By: #### H EMDF #### [facility] [address] [place] [address] Erythrocyte distribution width (RBC) [Ratio] 13.5 % Normal 11.5-14.5 [facility] Comment on above: Performed By: #### H EMDF #### [facility] [address] [place] [address] Granulocytes/100 WBC (Bld) 52.8 % Normal 40.0-80.0 [facility] Comment on above: Performed By: #### H EMDF #### [facility] [address] [place] [address] Hematocrit (Bld) [Volume fraction] 31.3 % Low 35.0-47.0 [facility] Comment on above: Performed By: #### H EMDF #### [facility] [address] [place] [address] Hemoglobin (Bld) [Mass/Vol] 10.8 g/dL Low 11.7-16.0 [facility] Comment on above: Performed By: #### H EMDF #### [facility] [address] [place] [address] Lymphocytes (Bld) [#/Vol] 1.4 10*3/uL Normal 1.0-4.3 [facility] Comment on above: Performed By: #### H EMDF #### [facility] [address] [place] [address] Lymphocytes/100 WBC (Bld) 28.7 % Normal 20.0-40.0 [facility] Comment on above: Performed By: #### H EMDF #### [facility] [address] [place] [address] MCH (RBC) [Entitic mass] 33.8 pg Normal 26.0-34.0 [facility] Comment on above: Performed By: #### H EMDF #### [facility] [address] [place] [address] MCHC 34.6 % Normal 32.0-36.0 [facility] Comment on above: Performed By: #### H EMDF #### [facility] [address] [place] [address] MCV (RBC) [Entitic vol] 97.9 fL Normal 79.0-98.0 [facility] Comment on above: Performed By: #### H EMDF #### [facility] [address] [place] [address] Monocytes (Bld) [#/Vol] 0.8 10*3/uL Normal 0.0-0.8 [facility] Comment on above: Performed By: #### H EMDF #### [facility] [address] [place] [address] Monocytes/100 WBC (Bld) 16.6 % High 2.0-10.0 [facility] Comment on above: Performed By: #### H EMDF #### [facility] [address] [place] [address] Platelet mean volume (Bld) [Entitic vol] 7.2 fL Low 7.4-10.4 [facility] Comment on above: Performed By: #### H EMDF #### [facility] [address] [place] [address] Platelets (Bld) [#/Vol] 201 10*3/uL Normal 140-440 [facility] Comment on above: Performed By: #### H EMDF #### [facility] [address] [place] [address] RBC (Bld) [#/Vol] 3.20 10*6/uL Low 3.80-5.20 [facility] Comment on above: Performed By: #### H EMDF #### [facility] [address] [place] [address] WBC (Bld) [#/Vol] 4.9 10*3/uL Normal 3.6-10.7 [facility] Comment on above: Performed By: #### H EMDF #### [facility] [address] [place] [address] Magnesiumon 10-18-2020 Magnesium [Mass/Vol] 2.1 mg/dL Normal 1.6-2.3 [facility] Comment on above: Performed By: #### M G3, CMP3M #### [facility] [address] [place] [address] Magnesium [Mass/Vol] 1.5 mg/dL Low 1.6-2.3 [facility] Comment on above: Performed By: #### M G3, CMP3M #### [facility] [address] [place] [address] Comp Metabolic Panelon 10-17 ALP [Catalytic activity/Vol] 42 U/L Normal 38-126 [facility] Comment on above: Performed By: #### C MP3M, HEMDF #### [facility] [address] [place] [address] ALT [Catalytic activity/Vol] 14 U/L Normal 0-34 [facility] Comment on above: Result Comment: The ALT test is performed by an updated assay method. Please note that the reference intervals have been changed and are now sex specific. Performed By: #### C MP3M, HEMDF #### [facility] [address] [place] [address] Calcium [Mass/Vol] 8.0 mg/dL Low 8.4-10.4 [facility] Comment on above: Performed By: #### C MP3M, HEMDF #### [facility] [address] [place] [address] Glucose [Mass/Vol] 97 mg/dL Normal 70-100 [facility] Comment on above: Performed By: #### C MP3M, HEMDF #### [facility] [address] [place] [address] Protein [Mass/Vol] 5.5 g/dL Low 6.3-8.2 [facility] Comment on above: Performed By: #### C MP3M, HEMDF #### [facility] [address] [place] [address] Urea nitrogen [Mass/Vol] 10 mg/dL Normal 9-20 [facility] Comment on above: Performed By: #### C MP3M, HEMDF #### [facility] [address] [place] [address] Anion gap [Moles/Vol] 1 mmol/L Low 3-13 [facility] Comment on above: Performed By: #### C MP3M, HEMDF #### [facility] [address] [place] [address] AST [Catalytic activity/Vol] 33 U/L Normal 15-46 [facility] Comment on above: Performed By: #### C MP3M, HEMDF #### [facility] [address] [place] [address] Bilirubin [Mass/Vol] 0.6 mg/dL Normal 0.2-1.3 [facility] Comment on above: Performed By: #### C MP3M, HEMDF #### [facility] [address] [place] [address] CO2 [Moles/Vol] 24 mmol/L Normal 22-30 [facility] Comment on above: Performed By: #### C MP3M, HEMDF #### [facility] [address] [place] [address] Creatinine [Mass/Vol] 0.54 mg/dL Normal 0.52-1.25 [facility] Comment on above: Performed By: #### C MP3M, HEMDF #### [facility] [address] [place] [address] GFR/1.73 sq M.predicted among blacks MDRD (S/P/Bld) [Vol rate/Area] mL/min/{1.73_m2} Normal >60 [facility] Comment on above: Performed By: #### C MP3M, HEMDF #### [facility] [address] [place] [address] GFR/1.73 sq M.predicted among non-blacks MDRD (S/P/Bld) [Vol rate/Area] 86.3 mL/min/{1.73_m2} Normal >60 [facility] Comment on above: Result Comment: KDIG O [...] Performed By: #### C MP3M, HEMDF #### [facility] [address] [place] [address] Chloride [Moles/Vol] 115 mmol/L High 98-107 [facility] Comment on above: Performed By: #### C MP3M, HEMDF #### [facility] [address] [place] [address] Potassium [Moles/Vol] 3.5 mmol/L Normal 3.5-5.1 [facility] Comment on above: Performed By: #### C MP3M, HEMDF #### [facility] [address] [place] [address] Sodium [Moles/Vol] 139 mmol/L Normal 135-145 [facility] Comment on above: Performed By: #### C MP3M, HEMDF #### [facility] [address] [place] [address] Albumin [Mass/Vol] 2.6 g/dL Low 3.5-5.0 [facility] Comment on above: Performed By: #### C MP3M, HEMDF #### [facility] [address] [place] [address] Hemogram w/ Autodiffon 10-17 Abs Baso Cnt 0.0 10*3/uL Normal 0.0-0.2 [facility] Comment on above: Performed By: #### C MP3M, HEMDF #### [facility] [address] [place] [address] Abs Neutrophile Cnt 4.4 10*3/uL Normal 1.8-7.0 [facility] Comment on above: Performed By: #### C MP3M, HEMDF #### [facility] [address] [place] [address] Basophils/100 WBC (Bld) 0.3 % Normal 0.0-2.0 [facility] Comment on above: Performed By: #### C MP3M, HEMDF #### [facility] [address] [place] [address] Eosinophils (Bld) [#/Vol] 0.1 10*3/uL Normal 0.0-0.5 [facility] Comment on above: Performed By: #### C MP3M, HEMDF #### [facility] [address] [place] [address] Eosinophils/100 WBC (Bld) 2.0 % Normal 1.0-6.0 [facility] Comment on above: Performed By: #### C MP3M, HEMDF #### [facility] [address] [place] [address] Erythrocyte distribution width (RBC) [Ratio] 13.8 % Normal 11.5-14.5 [facility] Comment on above: Performed By: #### C MP3M, HEMDF #### [facility] [address] [place] [address] Granulocytes/100 WBC (Bld) 69.9 % Normal 40.0-80.0 [facility] Comment on above: Performed By: #### C MP3M, HEMDF #### [facility] [address] [place] [address] Hematocrit (Bld) [Volume fraction] 28.8 % Low 35.0-47.0 [facility] Comment on above: Performed By: #### C MP3M, HEMDF #### [facility] [address] [place] [address] Hemoglobin (Bld) [Mass/Vol] 9.9 g/dL Low 11.7-16.0 [facility] Comment on above: Performed By: #### C MP3M, HEMDF #### [facility] [address] [place] [address] Lymphocytes (Bld) [#/Vol] 1.1 10*3/uL Normal 1.0-4.3 [facility] Comment on above: Performed By: #### C MP3M, HEMDF #### [facility] [address] [place] [address] Lymphocytes/100 WBC (Bld) 17.7 % Low 20.0-40.0 [facility] Comment on above: Performed By: #### C MP3M, HEMDF #### [facility] [address] [place] [address] MCH (RBC) [Entitic mass] 34.4 pg High 26.0-34.0 [facility] Comment on above: Performed By: #### C MP3M, HEMDF #### [facility] [address] [place] [address] MCHC 34.4 % Normal 32.0-36.0 [facility] Comment on above: Performed By: #### C MP3M, HEMDF #### [facility] [address] [place] [address] MCV (RBC) [Entitic vol] 99.9 fL High 79.0-98.0 [facility] Comment on above: Performed By: #### C MP3M, HEMDF #### [facility] [address] [place] [address] Monocytes (Bld) [#/Vol] 0.6 10*3/uL Normal 0.0-0.8 [facility] Comment on above: Performed By: #### C MP3M, HEMDF #### [facility] [address] [place] [address] Monocytes/100 WBC (Bld) 10.1 % High 2.0-10.0 [facility] Comment on above: Performed By: #### C MP3M, HEMDF #### [facility] [address] [place] [address] Platelet mean volume (Bld) [Entitic vol] 7.3 fL Low 7.4-10.4 [facility] Comment on above: Performed By: #### C MP3M, HEMDF #### [facility] [address] [place] [address] Platelets (Bld) [#/Vol] 190 10*3/uL Normal 140-440 [facility] Comment on above: Performed By: #### C MP3M, HEMDF #### [facility] [address] [place] [address] RBC (Bld) [#/Vol] 2.88 10*6/uL Low 3.80-5.20 [facility] Comment on above: Performed By: #### C MP3M, HEMDF #### [facility] [address] [place] [address] WBC (Bld) [#/Vol] 6.3 10*3/uL Normal 3.6-10.7 [facility] Comment on above: Performed By: #### C MP3M, HEMDF #### [facility] [address] [place] [address] Lactic Acidon 10-17-2020 Lactate [Moles/Vol] 0.9 mmol/L Normal 0.7-2.0 [facility] Comment on above: Performed By: #### C MP3M, HEMDF #### [facility] [address] [place] [address] Comp Panel with Mg Reflexon 10-16-2020 ALP [Catalytic activity/Vol] 56 U/L Normal 38-126 [facility] Comment on above: Performed By: #### H JADA CMP3M #### [facility] [address] [place] [address] ALT [Catalytic activity/Vol] 14 U/L Normal 0-34 [facility] Comment on above: Result Comment: The ALT test is performed by an updated assay method. Please note that the reference intervals have been changed and are now sex specific. Performed By: #### H JADA CMP3M #### [facility] [address] [place] [address] AST [Catalytic activity/Vol] 33 U/L Normal 15-46 [facility] Comment on above: Performed By: #### Gisella ELIAS CMP3M #### [facility] [address] [place] [address] Calcium [Mass/Vol] 8.2 mg/dL Low 8.4-10.4 [facility] Comment on above: Performed By: #### Gisella ELIAS CMP3M #### [facility] [address] [place] [address] Glucose [Mass/Vol] 95 mg/dL Normal 70-100 [facility] Comment on above: Performed By: #### Gisella ELIAS CMP3M #### [facility] [address] [place] [address] Protein [Mass/Vol] 5.6 g/dL Low 6.3-8.2 [facility] Comment on above: Performed By: #### Gisella ELIAS CMP3M #### [facility] [address] [place] [address] Urea nitrogen [Mass/Vol] 23 mg/dL High 9-20 [facility] Comment on above: Performed By: #### Gisella ELIAS CMP3M #### [facility] [address] [place] [address] Anion gap [Moles/Vol] 8 mmol/L Normal 3-13 [facility] Comment on above: Performed By: #### Gisella ELIAS CMP3M #### [facility] [address] [place] [address] Bilirubin [Mass/Vol] 0.3 mg/dL Normal 0.2-1.3 [facility] Comment on above: Performed By: #### H JADA CMP3M #### [facility] [address] [place] [address] CO2 [Moles/Vol] 18 mmol/L Low 22-30 [facility] Comment on above: Performed By: #### Gisella ELIAS CMP3M #### [facility] [address] [place] [address] Creatinine [Mass/Vol] 0.87 mg/dL Normal 0.52-1.25 [facility] Comment on above: Performed By: #### Gisella ELIAS CMP3M #### [facility] [address] [place] [address] GFR/1.73 sq M.predicted among blacks MDRD (S/P/Bld) [Vol rate/Area] 70.6 mL/min/{1.73_m2} Normal >60 [facility] Comment on above: Performed By: #### Gisella ELIAS CMP3M #### [facility] [address] [place] [address] GFR/1.73 sq M.predicted among non-blacks MDRD (S/P/Bld) [Vol rate/Area] 60.9 mL/min/{1.73_m2} Normal >60 [facility] Comment on above: Result Comment: KDIG O [...] Performed By: #### Gisella ELIAS CMP3M #### [facility] [address] [place] [address] Albumin [Mass/Vol] 2.7 g/dL Low 3.5-5.0 [facility] Comment on above: Performed By: #### Gisella ELIAS CMP3M #### [facility] [address] [place] [address] Chloride [Moles/Vol] 116 mmol/L High 98-107 [facility] Comment on above: Performed By: #### Gisella ELIAS CMP3M #### [facility] [address] [place] [address] Potassium [Moles/Vol] 3.9 mmol/L Normal 3.5-5.1 [facility] Comment on above: Performed By: #### Gisella ELIAS CMP3M #### [facility] [address] [place] [address] Sodium [Moles/Vol] 143 mmol/L Normal 135-145 [facility] Comment on above: Performed By: #### H JADA CMP3M #### [facility] [address] [place] [address] Hemogram w/ Autodiffon 10-16 Abs Baso Cnt 0.0 10*3/uL Normal 0.0-0.2 [facility] Comment on above: Performed By: #### H JADA CMP3M #### [facility] [address] [place] [address] Abs Neutrophile Cnt 6.7 10*3/uL Normal 1.8-7.0 [facility] Comment on above: Performed By: #### H JADA CMP3M #### [facility] [address] [place] [address] Basophils/100 WBC (Bld) 0.3 % Normal 0.0-2.0 [facility] Comment on above: Performed By: #### H JADA CMP3M #### [facility] [address] [place] [address] Eosinophils (Bld) [#/Vol] 0.0 10*3/uL Normal 0.0-0.5 [facility] Comment on above: Performed By: #### H JADA CMP3M #### [facility] [address] [place] [address] Eosinophils/100 WBC (Bld) 0.3 % Low 1.0-6.0 [facility] Comment on above: Performed By: #### H JADA CMP3M #### [facility] [address] [place] [address] Erythrocyte distribution width (RBC) [Ratio] 13.7 % Normal 11.5-14.5 [facility] Comment on above: Performed By: #### H EMDF, CMP3M #### [facility] [address] [place] [address] Granulocytes/100 WBC (Bld) 77.0 % Normal 40.0-80.0 [facility] Comment on above: Performed By: #### H EMDF, CMP3M #### [facility] [address] [place] [address] Hematocrit (Bld) [Volume fraction] 30.7 % Low 35.0-47.0 [facility] Comment on above: Performed By: #### H EMDF, CMP3M #### [facility] [address] [place] [address] Hemoglobin (Bld) [Mass/Vol] 10.3 g/dL Low 11.7-16.0 [facility] Comment on above: Performed By: #### H EMDF, CMP3M #### [facility] [address] [place] [address] Lymphocytes (Bld) [#/Vol] 1.3 10*3/uL Normal 1.0-4.3 [facility] Comment on above: Performed By: #### H EMDF, CMP3M #### [facility] [address] [place] [address] Lymphocytes/100 WBC (Bld) 14.5 % Low 20.0-40.0 [facility] Comment on above: Performed By: #### H EMDF, CMP3M #### [facility] [address] [place] [address] MCH (RBC) [Entitic mass] 33.7 pg Normal 26.0-34.0 [facility] Comment on above: Performed By: #### H EMDF, CMP3M #### [facility] [address] [place] [address] MCHC 33.6 % Normal 32.0-36.0 [facility] Comment on above: Performed By: #### H EMDF, CMP3M #### [facility] [address] [place] [address] MCV (RBC) [Entitic vol] 100.3 fL High 79.0-98.0 [facility] Comment on above: Performed By: #### H EMDF, CMP3M #### [facility] [address] [place] [address] Monocytes (Bld) [#/Vol] 0.7 10*3/uL Normal 0.0-0.8 [facility] Comment on above: Performed By: #### H EMDF, CMP3M #### [facility] [address] [place] [address] Monocytes/100 WBC (Bld) 7.9 % Normal 2.0-10.0 [facility] Comment on above: Performed By: #### H EMDF, CMP3M #### [facility] [address] [place] [address] Platelet mean volume (Bld) [Entitic vol] 7.6 fL Normal 7.4-10.4 [facility] Comment on above: Performed By: #### H EMDF, CMP3M #### [facility] [address] [place] [address] Platelets (Bld) [#/Vol] 190 10*3/uL Normal 140-440 [facility] Comment on above: Performed By: #### H EMDF, CMP3M #### [facility] [address] [place] [address] RBC (Bld) [#/Vol] 3.06 10*6/uL Low 3.80-5.20 [facility] Comment on above: Performed By: #### H EMDF, CMP3M #### [facility] [address] [place] [address] WBC (Bld) [#/Vol] 8.7 10*3/uL Normal 3.6-10.7 [facility] Comment on above: Performed By: #### H EMDF, CMP3M #### [facility] [address] [place] [address] Procalcitoninon 10-16-2020 Procalcitonin 6.93 ng/mL High 0.00-0.09 [facility] Comment on above: Performed By: #### M G3, CMP3M #### [facility] [address] [place] [address] Interpretation See Below Normal [facility] Comment on above: Result Comment: PCT <0.50 = Low risk of severe sepsis and/or septic shock. PCT >2.00 = High risk of severe sepsis and/or septic shock. Performed By: #### M Manish CMP3M #### [facility] [address] [place] [address] Comp Panel with Mg Reflexon 10-15-2020 Calcium [Mass/Vol] 8.3 mg/dL Low 8.4-10.4 [facility] Comment on above: Performed By: #### C MP3M, HEMDF #### [facility] [address] [place] [address] ALP [Catalytic activity/Vol] 84 U/L Normal 38-126 [facility] Comment on above: Performed By: #### C MP3M, HEMDF #### [facility] [address] [place] [address] ALT [Catalytic activity/Vol] 15 U/L Normal 0-34 [facility] Comment on above: Result Comment: The ALT test is performed by an updated assay method. Please note that the reference intervals have been changed and are now sex specific. Performed By: #### C MP3M, HEMDF #### [facility] [address] [place] [address] Anion gap [Moles/Vol] 9 mmol/L Normal 3-13 [facility] Comment on above: Performed By: #### C MP3M, HEMDF #### [facility] [address] [place] [address] AST [Catalytic activity/Vol] 37 U/L Normal 15-46 [facility] Comment on above: Performed By: #### C MP3M, HEMDF #### [facility] [address] [place] [address] Bilirubin [Mass/Vol] 0.5 mg/dL Normal 0.2-1.3 [facility] Comment on above: Performed By: #### C MP3M, HEMDF #### [facility] [address] [place] [address] CO2 [Moles/Vol] 18 mmol/L Low 22-30 [facility] Comment on above: Performed By: #### C MP3M, HEMDF #### [facility] [address] [place] [address] Creatinine [Mass/Vol] 1.59 mg/dL High 0.52-1.25 [facility] Comment on above: Performed By: #### C MP3M, HEMDF #### [facility] [address] [place] [address] GFR/1.73 sq M.predicted among blacks MDRD (S/P/Bld) [Vol rate/Area] 34.1 mL/min/{1.73_m2} Abnormal >60 [facility] Comment on above: Performed By: #### C MP3M, HEMDF #### [facility] [address] [place] [address] GFR/1.73 sq M.predicted among non-blacks MDRD (S/P/Bld) [Vol rate/Area] 29.4 mL/min/{1.73_m2} Abnormal >60 [facility] Comment on above: Result Comment: KDIG O [...] Performed By: #### C MP3M, HEMDF #### [facility] [address] [place] [address] Glucose [Mass/Vol] 93 mg/dL Normal 70-100 [facility] Comment on above: Performed By: #### C MP3M, HEMDF #### [facility] [address] [place] [address] Protein [Mass/Vol] 5.6 g/dL Low 6.3-8.2 [facility] Comment on above: Performed By: #### C MP3M, HEMDF #### [facility] [address] [place] [address] Urea nitrogen [Mass/Vol] 40 mg/dL High 9-20 [facility] Comment on above: Performed By: #### C MP3M, HEMDF #### [facility] [address] [place] [address] Potassium [Moles/Vol] 4.1 mmol/L Normal 3.5-5.1 [facility] Comment on above: Performed By: #### C MP3M, HEMDF #### [facility] [address] [place] [address] Albumin [Mass/Vol] 2.7 g/dL Low 3.5-5.0 [facility] Comment on above: Performed By: #### C MP3M, HEMDF #### [facility] [address] [place] [address] Chloride [Moles/Vol] 108 mmol/L High 98-107 [facility] Comment on above: Performed By: #### C MP3M, HEMDF #### [facility] [address] [place] [address] Sodium [Moles/Vol] 135 mmol/L Normal 135-145 [facility] Comment on above: Performed By: #### C MP3M, HEMDF #### [facility] [address] [place] [address] Hemogram w/ Autodiffon 10-15 Abs Baso Cnt 0.0 10*3/uL Normal 0.0-0.2 [facility] Comment on above: Performed By: #### C MP3M, HEMDF #### [facility] [address] [place] [address] Abs Neutrophile Cnt 7.5 10*3/uL High 1.8-7.0 [facility] Comment on above: Performed By: #### C MP3M, HEMDF #### [facility] [address] [place] [address] Basophils/100 WBC (Bld) 0.4 % Normal 0.0-2.0 [facility] Comment on above: Performed By: #### C MP3M, HEMDF #### [facility] [address] [place] [address] Eosinophils (Bld) [#/Vol] 0.0 10*3/uL Normal 0.0-0.5 [facility] Comment on above: Performed By: #### C MP3M, HEMDF #### [facility] [address] [place] [address] Eosinophils/100 WBC (Bld) 0.2 % Low 1.0-6.0 [facility] Comment on above: Performed By: #### C MP3M, HEMDF #### [facility] [address] [place] [address] Erythrocyte distribution width (RBC) [Ratio] 13.9 % Normal 11.5-14.5 [facility] Comment on above: Performed By: #### C MP3M, HEMDF #### [facility] [address] [place] [address] Granulocytes/100 WBC (Bld) 76.2 % Normal 40.0-80.0 [facility] Comment on above: Performed By: #### C MP3M, HEMDF #### [facility] [address] [place] [address] Hematocrit (Bld) [Volume fraction] 32.6 % Low 35.0-47.0 [facility] Comment on above: Performed By: #### C MP3M, HEMDF #### [facility] [address] [place] [address] Hemoglobin (Bld) [Mass/Vol] 11.2 g/dL Low 11.7-16.0 [facility] Comment on above: Performed By: #### C MP3M, HEMDF #### [facility] [address] [place] [address] Lymphocytes (Bld) [#/Vol] 1.4 10*3/uL Normal 1.0-4.3 [facility] Comment on above: Performed By: #### C MP3M, HEMDF #### [facility] [address] [place] [address] Lymphocytes/100 WBC (Bld) 14.7 % Low 20.0-40.0 [facility] Comment on above: Performed By: #### C MP3M, HEMDF #### [facility] [address] [place] [address] MCH (RBC) [Entitic mass] 34.6 pg High 26.0-34.0 [facility] Comment on above: Performed By: #### C MP3M, HEMDF #### [facility] [address] [place] [address] MCHC 34.5 % Normal 32.0-36.0 [facility] Comment on above: Performed By: #### C MP3M, HEMDF #### [facility] [address] [place] [address] MCV (RBC) [Entitic vol] 100.5 fL High 79.0-98.0 [facility] Comment on above: Performed By: #### C MP3M, HEMDF #### [facility] [address] [place] [address] Monocytes (Bld) [#/Vol] 0.8 10*3/uL Normal 0.0-0.8 [facility] Comment on above: Performed By: #### C MP3M, HEMDF #### [facility] [address] [place] [address] Monocytes/100 WBC (Bld) 8.5 % Normal 2.0-10.0 [facility] Comment on above: Performed By: #### C MP3M, HEMDF #### [facility] [address] [place] [address] Platelet mean volume (Bld) [Entitic vol] 7.7 fL Normal 7.4-10.4 [facility] Comment on above: Performed By: #### C MP3M, HEMDF #### [facility] [address] [place] [address] Platelets (Bld) [#/Vol] 211 10*3/uL Normal 140-440 [facility] Comment on above: Performed By: #### C MP3M, HEMDF #### [facility] [address] [place] [address] RBC (Bld) [#/Vol] 3.25 10*6/uL Low 3.80-5.20 [facility] Comment on above: Performed By: #### C MP3M, HEMDF #### [facility] [address] [place] [address] WBC (Bld) [#/Vol] 9.8 10*3/uL Normal 3.6-10.7 [facility] Comment on above: Performed By: #### C MP3M, HEMDF #### [facility] [address] [place] [address] Add on test from HISon 10-14 -2020 Add on test from [facility] Accepted Normal [facility] Comment on above: Result Comment: Spec imen available & acceptable for analysis. Performed By: #### Fernando Hammond CMP3M #### [facility] [address] [place] [address] Basic Metabolic Panelon 090 Anion gap [Moles/Vol] 6 mmol/L Normal 3-13 [facility] Comment on above: Performed By: #### B MP3M #### [facility] [address] [place] [address] Calcium [Mass/Vol] 8.2 mg/dL Low 8.4-10.4 [facility] Comment on above: Performed By: #### B MP3M #### [facility] [address] [place] [address] CO2 [Moles/Vol] 22 mmol/L Normal 22-30 [facility] Comment on above: Performed By: #### B MP3M #### [facility] [address] [place] [address] Glucose [Mass/Vol] 109 mg/dL High 70-100 [facility] Comment on above: Performed By: #### B MP3M #### [facility] [address] [place] [address] Urea nitrogen [Mass/Vol] 33 mg/dL High 9-20 [facility] Comment on above: Performed By: #### B MP3M #### [facility] [address] [place] [address] Creatinine [Mass/Vol] 1.30 mg/dL High 0.52-1.25 [facility] Comment on above: Performed By: #### B MP3M #### [facility] [address] [place] [address] GFR/1.73 sq M.predicted among blacks MDRD (S/P/Bld) [Vol rate/Area] 43.5 mL/min/{1.73_m2} Abnormal >60 [facility] Comment on above: Performed By: #### B MP3M #### [facility] [address] [place] [address] GFR/1.73 sq M.predicted among non-blacks MDRD (S/P/Bld) [Vol rate/Area] 37.5 mL/min/{1.73_m2} Abnormal >60 [facility] Comment on above: Result Comment: KDIG O [...] secretion. Performed By: #### B MP3M #### [facility] [employer] [facility] [address] [place] [address] Chloride [Moles/Vol] 107 mmol/L Normal 98-107 [facility] Comment on above: Performed By: #### B MP3M #### [facility] [address] [place] [address] Potassium [Moles/Vol] 4.3 mmol/L Normal 3.5-5.1 [facility] Comment on above: Performed By: #### B MP3M #### [facility] [address] [place] [address] Sodium [Moles/Vol] 135 mmol/L Normal 135-145 [facility] Comment on above: Performed By: #### B MP3M #### [facility] [address] [place] [address] Calcium [Mass/Vol] 9.1 mg/dL Normal 8.4-10.4 [facility] Comment on above: Performed By: #### B MP3M #### [facility] [address] [place] [address] Glucose [Mass/Vol] 96 mg/dL Normal 70-100 [facility] Comment on above: Performed By: #### B MP3M #### [facility] [address] [place] [address] Anion gap [Moles/Vol] 10 mmol/L Normal 3-13 [facility] Comment on above: Performed By: #### B MP3M #### [facility] [address] [place] [address] CO2 [Moles/Vol] 21 mmol/L Low 22-30 [facility] Comment on above: Performed By: #### B MP3M #### [facility] [address] [place] [address] Creatinine [Mass/Vol] 1.38 mg/dL High 0.52-1.25 [facility] Comment on above: Performed By: #### B MP3M #### [facility] [address] [place] [address] GFR/1.73 sq M.predicted among blacks MDRD (S/P/Bld) [Vol rate/Area] 40.4 mL/min/{1.73_m2} Abnormal >60 [facility] Comment on above: Performed By: #### B MP3M #### [facility] [address] [place] [address] GFR/1.73 sq M.predicted among non-blacks MDRD (S/P/Bld) [Vol rate/Area] 34.9 mL/min/{1.73_m2} Abnormal >60 [facility] Comment on above: Result Comment: KDIG O [...] secretion. Performed By: #### B MP3M #### [facility] [address] [place] [address] Urea nitrogen [Mass/Vol] 33 mg/dL High 9-20 [facility] Comment on above: Performed By: #### B MP3M #### [facility] [address] [place] [address] Potassium [Moles/Vol] 4.2 mmol/L Normal 3.5-5.1 [facility] Comment on above: Performed By: #### B MP3M #### [facility] [address] [place] [address] Sodium [Moles/Vol] 132 mmol/L Low 135-145 [facility] Comment on above: Performed By: #### B MP3M #### [facility] [address] [place] [address] Chloride [Moles/Vol] 101 mmol/L Normal 98-107 [facility] Comment on above: Performed By: #### B MP3M #### [facility] [address] [place] [address] C-Reactive Proteinon 021 CRP [Mass/Vol] mg/L Normal 0.0-6.0 [facility] Comment on above: Result Comment: . Performed By: #### B MP3M #### [facility] [address] [place] [address] CT Abdomen/Pelvis w/ Contras ton 10-14-2020 CT Abdomen/Pelvis w/ Contrast Patient Name: KATHERINE JUDGE Computed Tomography ACCESSION EXAM DATE/TIME PROCEDURE ORDERING PROVIDER [id number] 10/13/2020 23:[address] Abdomen/Pelvis w/ IV MARK DICKERSON, Contrast (IV Onl JULITA CPT code 64342 Q9967 Reason For Exam (CT Abdomen/Pelvis w/ [...] Transcribed Date and Time: 10/13/2020 11:53 Normal [facility] GASTROINTESTINAL PCR PANELon 10-14-2020 GASTROINTESTINAL PCR PANEL GASTROINTESTINAL PCR PANEL --> Status: F NEGATIVE: No targets were detected by the [employer] Gastrointestinal PCR Panel. _ The [employer] Gastrointestinal PCR Panel can detect the following targets: Campylobacter, Plesiomonas shigelloides, Salmonella, Vibrio species, Vibrio cholerae, Yersinia enterocolitica, Shiga toxin-producing E coli (STEC) including E coli O157, Enterotoxigenic E coli (ETEC), Shigella/Enteroinvasive E coli (EIEC), Cryptosporidium, Cyclospora cayetanensis, Entamoeba histolytica, Giardia lamblia, Adenovirus F 40/41, Astrovirus, Norovirus GI/GII, Rotavirus A, Sapovirus Gastrointestinal PCR Panel. _ The [employer] Gastrointestinal PCR Panel can detect the following targets: Campylobacter, Plesiomonas shigelloides, Salmonella, Vibrio species, Vibrio cholerae, Yersinia enterocolitica, Shiga toxin-producing E coli (STEC) including E coli O157, Enterotoxigenic E coli (ETEC), Shigella/Enteroinvasive E coli (EIEC), Cryptosporidium, Cyclospora cayetanensis, Entamoeba histolytica, Giardia lamblia, Adenovirus F 40/41, Astrovirus, Norovirus GI/GII, Rotavirus A, Sapovirus Normal [facility] Comment on above: Performed By: #### B FGI #### [facility] [address] [facility] [place] [address] Glucoseon 10-14-2020 Glucose [Mass/Vol] 107 mg/dL High 70-100 [facility] Comment on above: Performed By: #### B MP3M #### [facility] [address] [place] [address] Hepatic Functionon ALP [Catalytic activity/Vol] 216 U/L High 38-126 [facility] Comment on above: Performed By: #### B MP3M #### [facility] [address] [place] [address] ALT [Catalytic activity/Vol] 17 U/L Normal 0-34 [facility] Comment on above: Result Comment: The ALT test is performed by an updated assay method. Please note that the reference intervals have been changed and are now sex specific. Performed By: #### B MP3M #### [facility] [address] [place] [address] AST [Catalytic activity/Vol] 50 U/L High 15-46 [facility] Comment on above: Performed By: #### B MP3M #### [facility] [address] [place] [address] Bilirubin [Mass/Vol] 0.9 mg/dL Normal 0.2-1.3 [facility] Comment on above: Performed By: #### B MP3M #### [facility] [address] [place] [address] Bilirubin.indirect [Mass/Vol] 0.0 mg/dL Normal 0.0-0.3 [facility] Comment on above: Performed By: #### B MP3M #### [facility] [address] [place] [address] Protein [Mass/Vol] 5.9 g/dL Low 6.3-8.2 [facility] Comment on above: Performed By: #### B MP3M #### [facility] [address] [place] [address] Albumin [Mass/Vol] 3.0 g/dL Low 3.5-5.0 [facility] Comment on above: Performed By: #### B MP3M #### [facility] [address] [place] [address] Lactic Acidon 10-14-2020 Lactate [Moles/Vol] 1.5 mmol/L Normal 0.7-2.0 [facility] Comment on above: Performed By: #### M G3, CMP3M #### [facility] [address] [place] [address] Magnesiumon 10-14-2020 Magnesium [Mass/Vol] 1.6 mg/dL Normal 1.6-2.3 [facility] Comment on above: Performed By: #### B MP3M #### [facility] [address] [place] [address] Phosphoruson 10-14-2020 Phosphate [Mass/Vol] 4.6 mg/dL High 2.5-4.5 [facility] Comment on above: Performed By: #### B MP3M #### [facility] [address] [place] [address] Procalcitoninon 10-14-2020 Procalcitonin 7.54 ng/mL High 0.00-0.09 [facility] Comment on above: Performed By: #### B MP3M #### [facility] [address] [place] [address] Interpretation See Below Normal [facility] Comment on above: Result Comment: PCT <0.50 = Low risk of severe sepsis and/or septic shock. PCT >2.00 = High risk of severe sepsis and/or septic shock. Performed By: #### B MP3M #### [facility] [address] [place] [address] SARS-CoV-2 (LAB DEPT)on SARS-CoV-2 (COVID-19) RNA ALTHEA+probe Ql (Unsp spec) see below Normal [facility] Comment on above: Result Comment: Not Detected Expected Result: Not Detected _ Isothermal nucleic acid amplification performed on the [employer] System by the [facility] Negative results do not preclude SARS-CoV-2 infection and should not be used as the sole basis for treatment or other patient management decisions. This assay was developed by [employer] and distributed under an Emergency Use Authorization (EUA) granted by the [facility] for the qualitative detection of SARS-CoV-2 nucleic acid. Provider and patient fact sheets can be found at https://www.fda.gov/media/323632/download and https://www.fda.gov/media/565915/download. Performed By: #### B MP3M #### [facility] [employer] [facility] [address] [place] [address] TS GELon 10-14-2020 TS GEL ABO Group: O Rh, Gel: POS Antibody Screen Gel: NEG Normal [facility] [employer] [facility] Comment on above: Performed By: #### T SGL #### [facility] Troponin Ion 10-14-2020 Troponin I.cardiac [Mass/Vol] ng/mL Normal 0.000-0.03 4 [facility] Comment on above: Result Comment: . Performed By: #### B MP3M #### [facility] [employer] [facility] [address] [place] [address] ED Provider Noteon 1 ED Provider Note Teresa WOLF ED eMERGENCY dEPARTMENT eNCOUnter Pt Name: Katherine [...] patient come from an ECF, SNF, Rehab, Snf or other Congregate setting: no (If yes to above patient needs a Covid-19 test) HISTORY OF PRESENT ILLNESS (Location/Symptom, Timing/Onset,Context/Setting , Quality, Duration, Modifying Factors, Severity) Note limiting factors. HPI Katherine Judge is a 85 y.o. female who [...] otherwise acutely negative except as stated in [place]. PAST MEDICAL HISTORY Past Medical History: Diagnosis [...] Gatherings with Friends and Family: ? Attends Islam Services: ? Active Member of Clubs or Organizations: ? Attends Club or Organization Meetings: ? Marital Status: Intimate Partner Violence: ? Fear of Current or Ex-Partner: ? Emotionally Abused: ? Physically Abused: ? Sexually Abused: SCREENINGS PHYS (more content not included)... Normal [facility] ED Provider Note Emergency Department Encounter [facility] ED Patient: Katherine Judge : 1935 [...] made by myself in conjunction with the FREDI. For all further details of the patient's emergency department visit, please see their documentation. (Please note that portions of this note may have been completed with a voice recognition program. Efforts were made to edit the dictations but occasionally words are mis-transcribed.) Hugh Cesar MD [employer] Hugh Cesar MD 10/13/20 4106 Normal [facility] Fecal Occult,Stool Single Sp econ 10-13-2020 Fecal Occult,Stool Single Spec Positive Normal Negative [facility] Comment on above: Performed By: #### M ILEANA Hammond3M #### [facility] [address] [place] [address] Hemogram w/ Autodiffon 10-13 Abs Baso Cnt 0.0 10*3/uL Normal 0.0-0.2 [facility] Comment on above: Performed By: #### Fernando Hammond CMP3M #### [facility] [address] [place] [address] Abs Neutrophile Cnt 7.2 10*3/uL High 1.8-7.0 [facility] Comment on above: Performed By: #### M ILEANA Hammond3M #### [facility] [address] [place] [address] Basophils/100 WBC (Bld) 0.1 % Normal 0.0-2.0 [facility] Comment on above: Performed By: #### Fernando G3, CMP3M #### [facility] [address] [place] [address] Eosinophils (Bld) [#/Vol] 0.0 10*3/uL Normal 0.0-0.5 [facility] Comment on above: Performed By: #### Fernando G3, CMP3M #### [facility] [address] [place] [address] Eosinophils/100 WBC (Bld) 0.0 % Low 1.0-6.0 [facility] Comment on above: Performed By: #### Fernando Hammond CMP3M #### [facility] [address] [place] [address] Erythrocyte distribution width (RBC) [Ratio] 13.8 % Normal 11.5-14.5 [facility] Comment on above: Performed By: #### Fernando Hammond CMP3M #### [facility] [address] [place] [address] Granulocytes/100 WBC (Bld) 87.0 % High 40.0-80.0 [facility] Comment on above: Performed By: #### Fernando Hammond CMP3M #### [facility] [address] [place] [address] Hematocrit (Bld) [Volume fraction] 47.8 % High 35.0-47.0 [facility] Comment on above: Performed By: #### Fernando G3 CMP3M #### [facility] [address] [place] [address] Hemoglobin (Bld) [Mass/Vol] 16.0 g/dL Normal 11.7-16.0 [facility] Comment on above: Performed By: #### Fernando G3, CMP3M #### [facility] [address] [place] [address] Lymphocytes (Bld) [#/Vol] 0.7 10*3/uL Low 1.0-4.3 [facility] Comment on above: Performed By: #### Fernando G3, CMP3M #### [facility] [address] [place] [address] Lymphocytes/100 WBC (Bld) 8.9 % Low 20.0-40.0 [facility] Comment on above: Performed By: #### Fernando Hammond CMP3M #### [facility] [address] [place] [address] MCH (RBC) [Entitic mass] 33.6 pg Normal 26.0-34.0 [facility] Comment on above: Performed By: #### Fernando Hammond CMP3M #### [facility] [address] [place] [address] MCHC 33.4 % Normal 32.0-36.0 [facility] Comment on above: Performed By: #### Fernando Hammond CMP3M #### [facility] [address] [place] [address] MCV (RBC) [Entitic vol] 100.9 fL High 79.0-98.0 [facility] Comment on above: Performed By: #### Fernando Hammond CMP3M #### [facility] [address] [place] [address] Monocytes (Bld) [#/Vol] 0.3 10*3/uL Normal 0.0-0.8 [facility] Comment on above: Performed By: #### Fernando Hammond CMP3M #### [facility] [address] [place] [address] Monocytes/100 WBC (Bld) 4.0 % Normal 2.0-10.0 [facility] Comment on above: Performed By: #### Fernando Hammond CMP3M #### [facility] [address] [place] [address] Platelet mean volume (Bld) [Entitic vol] 7.6 fL Normal 7.4-10.4 [facility] Comment on above: Performed By: #### Fernadno Hammond CMP3M #### [facility] [address] [place] [address] Platelets (Bld) [#/Vol] 302 10*3/uL Normal 140-440 [facility] Comment on above: Performed By: #### Fernando Hammond CMP3M #### [facility] [address] [place] [address] RBC (Bld) [#/Vol] 4.74 10*6/uL Normal 3.80-5.20 [facility] Comment on above: Performed By: #### M G3, CMP3M #### [facility] [address] [place] [address] WBC (Bld) [#/Vol] 8.3 10*3/uL Normal 3.6-10.7 [facility] Comment on above: Performed By: #### M G3, CMP3M #### [facility] [address] [place] [address] Lactic Acidon 10-13-2020 Lactate [Moles/Vol] 3.9 mmol/L Critically high 0.7-2.0 [facility] Comment on above: Performed By: #### B MP3M #### [facility] [address] [place] [address] Blood Pressure Cuff Sizeon 0 09-10-2020 Blood Pressure Cuff Size Adult [facility] Work Phone: Tobacco Screening.on 021 Tobacco use status [facility] b) No [facility] Work Phone: Tobacco Screening.on 021 Fall risk assessment a) No falls within the last year [facility] Work Phone: Tobacco use status CP b) No -[facility] Work Phone: Lipid Panelon 03-12-2020 Cholesterol [Mass/Vol] 148 mg/dL 0 - 199 [facility] Work Phone: Comment on above: . [...] dosing. Cholesterol in HDL [Mass/Vol] 40.7 mg/dL [facility] Work Phone: Comment on above: . AGE VERY LOW LOW N ORMAL HIGH 0-19 Y < 35 < 40 40-45 ---- 20- 24 Y ---- < 40 >45 ---- >24 Y ---- < 40 40-60 >60. Cholesterol in LDL [Mass/Vol] 76 mg/dL 0 - 99 [facility] Work Phone: Comment on above: . NEAR BORD AGE TORI RABLE OPTIMAL HIGH HIGH VERY HIGH 0-19 Y 0 - 109 --- 110-129 >/= 130 ---- 20-24 Y 0 - 119 --- 120-159 >/= 160 ---- >24 Y 0 - 99 100-129 130-159 160-189 >/=190. Cholesterol.total/Cho lesterol in HDL [Mass ratio] 3.6 {ratio} [facility] Work Phone: Comment on above: REF VALUESDESIRABLE < 3.4HIGH RISK > 5.0 Triglyceride [Mass/Vol] 159 mg/dL above high threshold 0 - 149 [facility] Work Phone: Comment on above: . AGE [...] Lipid Panel 32 mg/dL 0 - 40 [facility] Work Phone: Metabolic Panelon 03-12-2020 ALP [Catalytic activity/Vol] 54 U/L 33 - 136 [facility] Work Phone: [phone] Anion gap [Moles/Vol] 16 mmol/L 10 - 20 [facility] Work Phone: [phone] Bilirubin [Mass/Vol] 0.6 mg/dL 0.0 - 1.2 [facility] Work Phone: [phone] Calcium [Mass/Vol] 9.9 mg/dL 8.6 - 10.6 [facility] Work Phone: Chloride [Moles/Vol] 103 mmol/L 98 - 107 [facility] Work Phone: [phone] CO2 [Moles/Vol] 27 mmol/L 21 - 32 [facility] Work Phone: [phone] Creatinine [Mass/Vol] 1.18 mg/dL above high threshold See Below [facility] Work Phone: [phone] Comment on above: Reference Range: 0.5 0 - 1.05 Glucose [Mass/Vol] 76 mg/dL 74 - 99 [facility] Work Phone: [phone] Potassium [Moles/Vol] 4.2 mmol/L 3.5 - 5.3 [facility] Work Phone: [phone] Protein [Mass/Vol] 7.1 g/dL 6.4 - 8.2 [facility] Work Phone: [phone] Sodium [Moles/Vol] 142 mmol/L 136 - 145 [facility] Work Phone: [phone] Urea nitrogen [Mass/Vol] 28 mg/dL above high threshold 6 - 23 [facility] Work Phone: [phone] Otheron 03-12-2020 Albumin BCP dye [Mass/Vol] 4.0 g/dL 3.4 - 5.0 [facility] Work Phone: [phone] ALT With P-5'-P [Catalytic activity/Vol] 17 U/L 7 - 45 [facility] Work Phone: Comment on above: Patients treated wit h Sulfasalazine may generate falsely decreased results for ALT. AST With P-5'-P [Catalytic activity/Vol] 23 U/L 9 - 39 [facility] Work Phone: 44 {mL/min/1.73m2} Abnormal >60 ANGELASunil aaron [facility] Work Phone: 53 {mL/min/1.73m2} Abnormal >60 [facility] Work Phone: Comment on above: [...] Dayami Lozano MDElectronically signed by: DAYAMI LOZANO 11/10/19 15:55 Normal [facility] Work Phone: Comment on above: ORDER REVISED TO A C T ABDOMEN AND PELVIS W IV CONTRAST BY RADIOLOGIST; Original Order Number: [id number] Complete Blood Count + [facility] Basophils (Bld) [#/Vol] 0.05 {x10E9/L} See Below [facility] Work Phone: Comment on above: Reference Range: 0.0 0 - 0.10 Ordering Provider: Rachid JORDAN 94882 Basophils/100 WBC (Bld) 0.6 % 0.0 - 2.0 [facility] Work Phone: Comment on above: Ordering Provider: Rachid JORDAN 59176 Eosinophils (Bld) [#/Vol] 0.12 {x10E9/L} See Below [facility] Work Phone: Comment on above: Reference Range: 0.0 0 - 0.40 Ordering Provider: Rachid JORDAN 73929 Eosinophils/100 WBC (Bld) 1.5 % 0.0 - 6.0 [facility] Work Phone: Comment on above: Ordering Provider: Rachid JORDAN 62321 Erythrocyte distribution width (RBC) [Ratio] 13.2 % See Below [facility] Work Phone: Comment on above: Reference Range: 11. 5 - 14.5 Ordering Provider: Rachid JORDAN 17323 Hematocrit (Bld) [Volume fraction] 40.7 % See Below [facility] Work Phone: Comment on above: Reference Range: 36. 0 - 46.0 Ordering Provider: Rachid JORDAN 52790 Hemoglobin (Bld) [Mass/Vol] 12.6 g/dL See Below [facility] Work Phone: Comment on above: Reference Range: 12. 0 - 16.0 Ordering Provider: Rachid JORDAN 39322 Lymphocytes (Bld) [#/Vol] 2.25 {x10E9/L} See Below [facility] Work Phone: Comment on above: Reference Range: 0.8 0 - 3.00 Ordering Provider: Rachid JORDAN 63355 Lymphocytes/100 WBC (Bld) 27.3 % See Below [facility] Work Phone: Comment on above: Reference Range: 13. 0 - 44.0 Ordering Provider: Rachid JORDAN 81237 MCHC (RBC) [Mass/Vol] 31.0 g/dL below low threshold See Below [facility] Work Phone: Comment on above: Reference Range: 32. 0 - 36.0 Ordering Provider: Rachid JORDAN 39967 MCV (RBC) [Entitic vol] 105 fL above high threshold 80 - 100 [facility] Work Phone: Comment on above: Ordering Provider: Rachid JORDAN 48666 Monocytes (Bld) [#/Vol] 0.57 {x10E9/L} See Below [facility] Work Phone: Comment on above: Reference Range: 0.0 5 - 0.80 Ordering Provider: Rachid JORDAN 89112 Monocytes/100 WBC (Bld) 6.9 % 2.0 - 10.0 [facility] Work Phone: Comment on above: Ordering Provider: Rachid JORDAN 29110 Neutrophils (Bld) [#/Vol] 5.20 {x10E9/L} See Below [facility] Work Phone: Comment on above: Reference Range: 1.6 0 - 5.50 Ordering Provider: Rachid JORDAN 55651 Neutrophils/100 WBC (Bld) 63.0 % See Below [facility] Work Phone: Comment on above: Reference Range: 40. 0 - 80.0 Ordering Provider: Rachid JORDAN 79388 Platelets (Bld) [#/Vol] 288 {x10E9/L} 150 - 450 [facility] Work Phone: Comment on above: Platelet count may b e higher than reported due to presence of PlateletClumps. Ordering Provider: Rachid JORDAN 43006 RBC (Bld) [#/Vol] 3.87 {x10E12/L} below low threshold See Below [facility] Work Phone: Comment on above: Reference Range: 4.0 0 - 5.20 Ordering Provider: Rachid JORDAN 19428 WBC (Bld) [#/Vol] 0.0 {/100_WBC} 0.0 - 0.0 [facility] Work Phone: Comment on above: Ordering Provider: Rachid JORDAN 61904 WBC (Bld) [#/Vol] 8.3 {x10E9/L} 4.4 - 11.3 [facility] Work Phone: Comment on above: Ordering Provider: Rachid JORDAN 48291 Complete Blood Count + Differential 0.7 % 0.0 - 0.9 [facility] Work Phone: Comment on above: Immature Granulocyte Count (IG) includes promyelocytes, myelocytes and metamyelocytes but does not include bands. Percent differential counts (%) should be interpreted in the context of the absolute cell counts (cells/L). Ordering Provider: Rachid JORDAN 52393 Lipase, Serumon 11-10-2019 Lipase [Catalytic activity/Vol] 37 U/L 9 - 82 [facility] Work Phone: Comment on above: Venipuncture immedia tely after or during the administration of Metamizole may lead to falsely low results. Testing should be performed immediately prior to Metamizole dosing. Z-smbuac-o-benzoquinone imine (metabolite of Acetaminophen) will generate erroneously low results in samples for patients that have taken toxic doses of acetaminophen. Ordering Provider: Rachid JORDAN 91266 Metabolic Panelon 11-10-2019 ALP [Catalytic activity/Vol] 75 U/L 33 - 136 [facility] Work Phone: Comment on above: Ordering Provider: Rachid JORDAN 12947 Anion gap [Moles/Vol] 16 mmol/L 10 - 20 [facility] Work Phone: Comment on above: Ordering Provider: Rachid JORDAN 30634 Bilirubin [Mass/Vol] 0.6 mg/dL 0.0 - 1.2 [facility] Work Phone: Comment on above: Ordering Provider: Rachid JORDAN 96429 Calcium [Mass/Vol] 9.9 mg/dL 8.6 - 10.3 [facility] Work Phone: Comment on above: Ordering Provider: Rachid JORDAN 10859 Chloride [Moles/Vol] 99 mmol/L 98 - 107 [facility] Work Phone: Comment on above: Ordering Provider: Rachid JORDAN 91742 CO2 [Moles/Vol] 25 mmol/L 21 - 32 [facility] Work Phone: Comment on above: Ordering Provider: Rachid JORDAN 90231 Creatinine [Mass/Vol] 0.95 mg/dL See Below [facility] Work Phone: Comment on above: Reference Range: 0.5 0 - 1.05 Ordering Provider: Rachid JORDAN 52832 Glucose [Mass/Vol] 105 mg/dL above high threshold 74 - 99 [facility] Work Phone: Comment on above: Ordering Provider: Rachid JORDAN 51395 Potassium [Moles/Vol] 4.8 mmol/L 3.5 - 5.3 [facility] Work Phone: Comment on above: MILD HEMOLYSIS DETEC MAURA. The result may be falsely elevated due tohemolysis or other interferents. Clinical correlation is recommended.Repeat testing may be considered. Ordering Provider: Rachid JORDAN 50052 Protein [Mass/Vol] 8.2 g/dL 6.4 - 8.2 [facility] Work Phone: Comment on above: Ordering Provider: Rachid JORDAN 87641 Sodium [Moles/Vol] 135 mmol/L below low threshold 136 - 145 [facility] Work Phone: Comment on above: Ordering Provider: Rachid JORDAN 49134 Urea nitrogen [Mass/Vol] 18 mg/dL 6 - 23 [facility] Work Phone: Comment on above: Ordering Provider: Rachid JORDAN 23414 Other 11-10-2019 Albumin BCP dye [Mass/Vol] 3.7 g/dL 3.4 - 5.0 [facility] Work Phone: Comment on above: Ordering Provider: Rachid JORDAN 11117 ALT With P-5'-P [Catalytic activity/Vol] 13 U/L 7 - 45 [facility] Work Phone: Comment on above: Patients treated wit h Sulfasalazine may generate falsely decreased results for ALT. Ordering Provider: Rachid JORDAN 79865 AST With P-5'-P [Catalytic activity/Vol] 25 U/L 9 - 39 [facility] Work Phone: Comment on above: MILD HEMOLYSIS DETEC MAURA. The result may be falsely elevated due tohemolysis or other interferents. Clinical correlation is recommended.Repeat testing may be considered. Ordering Provider: Rachid JORDAN 75771 56 {mL/min/1.73m2} Abnormal >60 [facility] Work Phone: Comment on above: Ordering Provider: Rachid JORDAN 28684 68 {mL/min/1.73m2} >60 [facility] Work Phone: Comment on above: CALCULATIONS OF ALVARO MATED GFR ARE PERFORMED USING THE MDRD STUDY EQUATION FOR THE IDMS-TRACEABLE CREATININE METHODS. CLIN CHEM 2007;53:766-72 Ordering Provider: Rachid JORDAN 61900 Urinalysison 11-10-2019 Appearance (U) CLEAR CLEAR [facility] Work Phone: Comment on above: Ordering Provider: Rachid JORDAN 53017 Color (U) STRAW See Below [facility] Work Phone: Comment on above: Reference Range: STR AW,YELLOW Ordering Provider: Rachid JORDAN 29634 Glucose Ql (U) Negative NEGATIVE [facility] Work Phone: Comment on above: Ordering Provider: Rachid JORDAN 86155 Ketones Ql (U) Negative NEGATIVE [facility] Work Phone: Comment on above: Ordering Provider: Rachid JORDAN 82440 Leukocyte esterase Test strip Ql (U) Negative NEGATIVE [facility] Work Phone: Comment on above: Ordering Provider: Rachid JORDAN 68586 pH (U) 6.0 [pH] 5.0 - 8.0 [facility] Work Phone: Comment on above: Ordering Provider: Rachid JORDAN 12045 Protein (U) [Mass/Vol] Negative NEGATIVE [facility] Work Phone: Comment on above: Ordering Provider: Rachid JORDAN 88536 RBC (U) [#/Vol] SMALL (1+) Abnormal NEGATIVE [facility] Work Phone: Comment on above: Ordering Provider: Rachid JORDAN 82214 Specific gravity (U) [Rel density] 1.028 1 See Below [facility] Work Phone: Comment on above: Reference Range: 1.0 05 - 1.035 Ordering Provider: Rachid JORDAN 84810 Urinalysis <2.0 0.0 - 1.9 [facility] Work Phone: Comment on above: Ordering Provider: Rachid JORDAN 50964 Urinalysis Negative NEGATIVE [facility] Work Phone: Comment on above: Ordering Provider: Rachid JORDAN 45724 Urinalysis, Microscopicon RBC (Bld) [#/Vol] <1 0-5 [facility] Work Phone: Comment on above: Ordering Provider: Rachid JORDAN 54495 Urinalysis, Microscopic <1 0-5 [facility] Work Phone: Comment on above: Ordering Provider: Rachid JORDAN 54612 Urinalysis, Microscopic 1 {/HPF} [facility] Work Phone: Comment on above: Ordering Provider: Rachid JORDAN 30769 CRP, High Sensitivityon 10-12 CRP High sensitivity method [Mass/Vol] mg/L Abnormal [facility] Work Phone: Comment on above: hsCRP INTERPRETATION mg/L < 1.0 LOW RELATIVE RISK OF CVD 1.0-3.0 AVERAGE RELATIVE RISK OF CVD > 3.0 HIGH RELATIVE RISK OF CVD Source:KATIE TLeigh Gaona. et al. CIRCULATION 2003;107:[id number]. Complete Blood Count + Alvino fatima 11-09-2019 Basophils (Bld) [#/Vol] 0.06 {x10E9/L} See Below [facility] Work Phone: Comment on above: Reference Range: 0.0 0 - 0.10 Basophils/100 WBC (Bld) 0.6 % 0.0 - 2.0 [facility] Work Phone: Eosinophils (Bld) [#/Vol] 0.20 {x10E9/L} See Below [facility] Work Phone: Comment on above: Reference Range: 0.0 0 - 0.40 Eosinophils/100 WBC (Bld) 2.0 % 0.0 - 6.0 [facility] Work Phone: Erythrocyte distribution width (RBC) [Ratio] 13.2 % See Below [facility] Work Phone: Comment on above: Reference Range: 11. 5 - 14.5 Hematocrit (Bld) [Volume fraction] 38.6 % See Below [facility] Work Phone: Comment on above: Reference Range: 36. 0 - 46.0 Hemoglobin (Bld) [Mass/Vol] 12.2 g/dL See Below [facility] Work Phone: Comment on above: Reference Range: 12. 0 - 16.0 Lymphocytes (Bld) [#/Vol] 2.47 {x10E9/L} See Below [facility] Work Phone: Comment on above: Reference Range: 0.8 0 - 3.00 Lymphocytes/100 WBC (Bld) 24.4 % See Below [facility] Work Phone: Comment on above: Reference Range: 13. 0 - 44.0 MCHC (RBC) [Mass/Vol] 31.6 g/dL below low threshold See Below [facility] Work Phone: Comment on above: Reference Range: 32. 0 - 36.0 MCV (RBC) [Entitic vol] 106 fL above high threshold 80 - 100 [facility] Work Phone: Monocytes (Bld) [#/Vol] 0.84 {x10E9/L} above high threshold See Below [facility] Work Phone: Comment on above: Reference Range: 0.0 5 - 0.80 Monocytes/100 WBC (Bld) 8.3 % 2.0 - 10.0 [facility] Work Phone: Neutrophils/100 WBC (Bld) 64.2 % See Below [facility] Work Phone: Comment on above: Reference Range: 40. 0 - 80.0 Platelets (Bld) [#/Vol] 321 {x10E9/L} 150 - 450 [facility] Work Phone: RBC (Bld) [#/Vol] 3.64 {x10E12/L} below low threshold See Below [facility] Work Phone: Comment on above: Reference Range: 4.0 0 - 5.20 WBC (Bld) [#/Vol] 0.0 {/100_WBC} 0.0-0.0 [facility] Work Phone: WBC (Bld) [#/Vol] 10.1 {x10E9/L} 4.4 - 11.3 [facility] Work Phone: Complete Blood Count + Differential 6.51 {x10E9/L} above high threshold See Below [facility] Work Phone: Comment on above: Reference Range: 1.6 0 - 5.50 Complete Blood Count + Differential 0.5 % 0.0 - 0.9 [facility] Work Phone: Comment on above: Immature Granulocyte Count (IG) includes promyelocytes, myelocytes and metamyelocytes but does not include bands. Percent differential counts (%) should be interpreted in the context of the absolute cell counts (cells/L). Metabolic Panelon 11-09-2019 ALP [Catalytic activity/Vol] 91 U/L 33 - 136 [facility] Work Phone: Anion gap [Moles/Vol] 15 mmol/L 10 - 20 [facility] Work Phone: Bilirubin [Mass/Vol] 0.5 mg/dL 0.0 - 1.2 [facility] Work Phone: [phone] Calcium [Mass/Vol] 9.0 mg/dL 8.6 - 10.6 [facility] Work Phone: [phone] Chloride [Moles/Vol] 99 mmol/L 98 - 107 [facility] Work Phone: [phone] CO2 [Moles/Vol] 27 mmol/L 21 - 32 [facility] Work Phone: Creatinine [Mass/Vol] 0.91 mg/dL See Below [facility] Work Phone: Comment on above: Reference Range: 0.5 0 - 1.05 Glucose [Mass/Vol] 115 mg/dL above high threshold 74 - 99 [facility] Work Phone: Potassium [Moles/Vol] 4.3 mmol/L 3.5 - 5.3 [facility] Work Phone: Protein [Mass/Vol] 7.5 g/dL 6.4 - 8.2 [facility] Work Phone: [phone] Sodium [Moles/Vol] 137 mmol/L 136 - 145 [facility] Work Phone: [phone] Urea nitrogen [Mass/Vol] 20 mg/dL 6 - 23 [facility] Work Phone: Otheron 11-09-2019 Albumin BCP dye [Mass/Vol] 3.8 g/dL 3.4 - 5.0 [facility] Work Phone: ALT With P-5'-P [Catalytic activity/Vol] 14 U/L 7 - 45 [facility] Work Phone: Comment on above: Patients treated wit h Sulfasalazine may generate falsely decreased results for ALT. AST With P-5'-P [Catalytic activity/Vol] 19 U/L 9 - 39 [facility] Work Phone: 71 {mL/min/1.73m2} >60 [facility] Work Phone: Comment on above: CALCULATIONS OF ALVARO MATED GFR ARE PERFORMED USING THE MDRD STUDY EQUATION FOR THE IDMS-TRACEABLE CREATININE METHODS. CLIN CHEM 2007;53:766-72 59 {mL/min/1.73m2} Abnormal >60 [facility] Work Phone: Sedimentation Rate, Erythroc yteon 11-09-2019 ESR (Bld) [Velocity] 91 mm/h above high threshold 0 - 30 [facility] Work Phone: Cardiacon 09-06-2019 Natriuretic peptide B (Bld) [Mass/Vol] 167 pg/mL above high threshold 0 - 99 [facility] Work Phone: Comment on above: . <100 pg/mL - Heart failure [id number] pg/mL - Intermediate probability of acute heart. [...] (Bld) [Volume fraction] 40.1 % See Below [facility] Work Phone: Comment on above: Reference Range: 36. 0 - 46.0 Hemoglobin (Bld) [Mass/Vol] 13.0 g/dL See Below [facility] Work Phone: Comment on above: Reference Range: 12. 0 - 16.0 MCV (RBC) [Entitic vol] 104 fL above high threshold 80 - 100 [facility] Work Phone: Platelets (Bld) [#/Vol] 225 {x10E9/L} 150 - 450 [facility] Work Phone: RBC (Bld) [#/Vol] 3.86 {x10E12/L} below low threshold See Below [facility] Work Phone: Comment on above: Reference Range: 4.0 0 - 5.20 WBC (Bld) [#/Vol] 6.4 {x10E9/L} 4.4 - 11.3 [facility] Work Phone: WBC (Bld) [#/Vol] 0.0 {/100_WBC} 0.0-0.0 [facility] Work Phone: Metabolic Panelon 09-06-2019 Anion gap [Moles/Vol] 22 mmol/L above high threshold 10 - 20 [facility] Work Phone: Calcium [Mass/Vol] 10.4 mg/dL 8.6 - 10.6 [facility] Work Phone: Chloride [Moles/Vol] 101 mmol/L 98 - 107 [facility] Work Phone: CO2 [Moles/Vol] 20 mmol/L below low threshold 21 - 32 [facility] Work Phone: Creatinine [Mass/Vol] 1.19 mg/dL above high threshold See Below [facility] Work Phone: Comment on above: Reference Range: 0.5 0 - 1.05 Glucose [Mass/Vol] 87 mg/dL 74 - 99 [facility] Work Phone: Potassium [Moles/Vol] 5.7 mmol/L above high threshold 3.5 - 5.3 [facility] Work Phone: Comment on above: MILD HEMOLYSIS DETEC MAURA. The result may be falsely elevated due tohemolysis or other interferents. Clinical correlation is recommended.Repeat testing may be considered. Sodium [Moles/Vol] 137 mmol/L 136 - 145 [facility] Work Phone: Urea nitrogen [Mass/Vol] 23 mg/dL 6 - 23 [facility] Work Phone: Otheron 09-06-2019 Erythrocyte distribution width (RBC) [Ratio] 13.6 % See Below [facility] Work Phone: Comment on above: Reference Range: 11. 5 - 14.5 MCHC (RBC) [Mass/Vol] 32.4 g/dL See Below [facility] Work Phone: Comment on above: Reference Range: 32. 0 - 36.0 43 {mL/min/1.73m2} Abnormal >60 [facility] Work Phone: 52 {mL/min/1.73m2} Abnormal >60 [facility] Work Phone: Comment on above: CALCULATIONS OF ALVARO MATED GFR ARE PERFORMED USING THE MDRD STUDY EQUATION FOR THE IDMS-TRACEABLE CREATININE METHODS. CLIN CHEM 2007;53:766-72 Thyroidon 09-06-2019 TSH Qn 2.22 {mIU/L} See Below [facility] Work Phone: Comment on above: Reference Range: 0.4 4 - 3.98 TSH testing is performed using different testing methodology at [facility] than at other [facility]. Direct result comparisons should only be made within the same method. Complete Blood Count + Diffe [facility] 12-16-2018 Basophils (Bld) [#/Vol] 0.06 {x10E9/L} See Below [facility] Work Phone: Comment on above: Reference Range: 0.0 0 - 0.10 Basophils/100 WBC (Bld) 0.8 % 0.0 - 2.0 [facility] Work Phone: Eosinophils (Bld) [#/Vol] 0.09 {x10E9/L} See Below [facility] Work Phone: Comment on above: Reference Range: 0.0 0 - 0.40 Eosinophils/100 WBC (Bld) 1.2 % 0.0 - 6.0 [facility] Work Phone: Erythrocyte distribution width (RBC) [Ratio] 13.1 % See Below [facility] Work Phone: Comment on above: Reference Range: 11. 5 - 14.5 Hematocrit (Bld) [Volume fraction] 35.7 % below low threshold See Below [facility] Work Phone: Comment on above: Reference Range: 36. 0 - 46.0 Hemoglobin (Bld) [Mass/Vol] 11.0 g/dL below low threshold See Below [facility] Work Phone: Comment on above: Reference Range: 12. 0 - 16.0 Lymphocytes (Bld) [#/Vol] 3.17 {x10E9/L} above high threshold See Below [facility] Work Phone: Comment on above: Reference Range: 0.8 0 - 3.00 Lymphocytes/100 WBC (Bld) 40.6 % See Below [facility] Work Phone: Comment on above: Reference Range: 13. 0 - 44.0 MCHC (RBC) [Mass/Vol] 30.8 g/dL below low threshold See Below [facility] Work Phone: Comment on above: Reference Range: 32. 0 - 36.0 MCV (RBC) [Entitic vol] 109 fL above high threshold 80 - 100 [facility] Work Phone: Monocytes (Bld) [#/Vol] 0.34 {x10E9/L} See Below [facility] Work Phone: Comment on above: Reference Range: 0.0 5 - 0.80 Monocytes/100 WBC (Bld) 4.4 % 2.0 - 10.0 [facility] Work Phone: Neutrophils (Bld) [#/Vol] 4.08 {x10E9/L} See Below [facility] Work Phone: Comment on above: Reference Range: 1.6 0 - 5.50 Neutrophils/100 WBC (Bld) 52.1 % See Below [facility] Work Phone: Comment on above: Reference Range: 40. 0 - 80.0 Platelets (Bld) [#/Vol] 362 {x10E9/L} 150 - 450 [facility] Work Phone: RBC (Bld) [#/Vol] 3.27 {x10E12/L} below low threshold See Below [facility] Work Phone: Comment on above: Reference Range: 4.0 0 - 5.20 WBC (Bld) [#/Vol] 0.0 {/100_WBC} 0.0-0.0 [facility] Work Phone: WBC (Bld) [#/Vol] 7.8 {x10E9/L} 4.4 - 11.3 [facility] Work Phone: Complete Blood Count + Differential 0.9 % 0.0 - 0.9 [facility] Work Phone: Comment on above: Percent differential counts (%) should be interpreted in the context of the absolute cell counts (cells/L). [facility] 12[facility] Basophils (Bld) [#/Vol] 0.04 {x10E9/L} See Below [facility] Work Phone: Comment on above: Reference Range: 0.0 0 - 0.10 Basophils/100 WBC (Bld) 0.5 % 0.0 - 2.0 [facility] Work Phone: Eosinophils (Bld) [#/Vol] 0.20 {x10E9/L} See Below [facility] Work Phone: Comment on above: Reference Range: 0.0 0 - 0.40 Eosinophils/100 WBC (Bld) 2.4 % 0.0 - 6.0 [facility] Work Phone: Erythrocyte distribution width (RBC) [Ratio] 13.3 % See Below [facility] Work Phone: Comment on above: Reference Range: 11. 5 - 14.5 Hematocrit (Bld) [Volume fraction] 32.1 % below low threshold See Below [facility] Work Phone: Comment on above: Reference Range: 36. 0 - 46.0 Hemoglobin (Bld) [Mass/Vol] 10.0 g/dL below low threshold See Below [facility] Work Phone: Comment on above: Reference Range: 12. 0 - 16.0 Lymphocytes (Bld) [#/Vol] 2.28 {x10E9/L} See Below [facility] Work Phone: Comment on above: Reference Range: 0.8 0 - 3.00 Lymphocytes/100 WBC (Bld) 26.8 % See Below [facility] Work Phone: Comment on above: Reference Range: 13. 0 - 44.0 MCHC (RBC) [Mass/Vol] 31.2 g/dL below low threshold See Below [facility] Work Phone: Comment on above: Reference Range: 32. 0 - 36.0 MCV (RBC) [Entitic vol] 107 fL above high threshold 80 - 100 [facility] Work Phone: Monocytes (Bld) [#/Vol] 0.63 {x10E9/L} See Below [facility] Work Phone: Comment on above: Reference Range: 0.0 5 - 0.80 Monocytes/100 WBC (Bld) 7.4 % 2.0 - 10.0 [facility] Work Phone: Neutrophils (Bld) [#/Vol] 5.30 {x10E9/L} See Below [facility] Work Phone: Comment on above: Reference Range: 1.6 0 - 5.50 Neutrophils/100 WBC (Bld) 62.3 % See Below [facility] Work Phone: Comment on above: Reference Range: 40. 0 - 80.0 Platelets (Bld) [#/Vol] 298 {x10E9/L} 150 - 450 [facility] Work Phone: RBC (Bld) [#/Vol] 2.99 {x10E12/L} below low threshold See Below [facility] Work Phone: Comment on above: Reference Range: 4.0 0 - 5.20 WBC (Bld) [#/Vol] 0.0 {/100_WBC} 0.0-0.0 [facility] Work Phone: WBC (Bld) [#/Vol] 8.5 {x10E9/L} 4.4 - 11.3 [facility] Work Phone: Complete Blood Count + Differential 0.6 % 0.0 - 0.9 [facility] Work Phone: Comment on above: Percent differential counts (%) should be interpreted in the context of the absolute cell counts (cells/L). Folate, Serumon 12-09-2018 Folate [Mass/Vol] ng/mL >5.0 [facility] Work Phone: Comment on above: Patients receiving m ore than 5 mg/day of biotin may have interference in test results. A sample should be taken no sooner than eight hours after previous dose. Contact the testing laboratory for additional information. Metabolic Panelon 12-09-2018 Anion gap [Moles/Vol] 14 mmol/L 10 - 20 [facility] Work Phone: Calcium [Mass/Vol] 10.0 mg/dL 8.6 - 10.6 [facility] Work Phone: Chloride [Moles/Vol] 102 mmol/L 98 - 107 [facility] Work Phone: CO2 [Moles/Vol] 23 mmol/L 21 - 32 [facility] Work Phone: Creatinine [Mass/Vol] 2.05 mg/dL above high threshold See Below [facility] Work Phone: Comment on above: Reference Range: 0.5 0 - 1.05 Glucose [Mass/Vol] 88 mg/dL 74 - 99 [facility] Work Phone: Potassium [Moles/Vol] 5.0 mmol/L 3.5 - 5.3 [facility] Work Phone: Sodium [Moles/Vol] 134 mmol/L below low threshold 136 - 145 [facility] Work Phone: Urea nitrogen [Mass/Vol] 61 mg/dL above high threshold 6 - 23 [facility] Work Phone: Otheron 12-09-2018 28 {mL/min/1.73m2} Abnormal >60 [facility] Work Phone: Comment on above: CALCULATIONS OF ALVARO MATED GFR ARE PERFORMED USING THE MDRD STUDY EQUATION FOR THE IDMS-TRACEABLE CREATININE METHODS. CLIN CHEM 2007;53:766-72 23 {mL/min/1.73m2} Abnormal >60 [facility] Work Phone: TSH - Thyroid Stimulating Ramon Torreson 12-09-2018 TSH Qn 2.35 {mIU/L} See Below [facility] Work Phone: Comment on above: Reference Range: 0.4 4 - 3.98 TSH testing is performed using different testing methodology at [facility] than at other [facility]. Direct result comparisons should only be made within the same method.. Patients receiving more than 5 mg/day of biotin may have interference in test results. A sample should be taken no sooner than eight hours after previous dose. Contact [phone] for additional information. Urinalysison 12-09-2018 Appearance (U) CLEAR CLEAR [facility] Work Phone: Color (U) YELLOW See Below [facility] Work Phone: Comment on above: Reference Range: STR AW,YELLOW Glucose Ql (U) Negative NEGATIVE [facility] Work Phone: Ketones Ql (U) Negative NEGATIVE [facility] Work Phone: Leukocyte esterase Test strip Ql (U) SMALL (1+) Abnormal NEGATIVE [facility] Work Phone: pH (U) 5.0 [pH] 5.0 - 8.0 [facility] Work Phone: Protein (U) [Mass/Vol] Negative NEGATIVE [facility] Work Phone: RBC (U) [#/Vol] Negative NEGATIVE [facility] Work Phone: Specific gravity (U) [Rel density] 1.012 See Below [facility] Work Phone: Comment on above: Reference Range: 1.0 05 - 1.035 Urinalysis Negative NEGATIVE [facility] Work Phone: Urinalysis <2.0 0.0 - 1.9 [facility] Work Phone: Urinalysis, Microscopicon RBC (Bld) [#/Vol] <1 0-5 [facility] Work Phone: Urinalysis, Microscopic 6 {/HPF} Abnormal 0-5 [facility] Work Phone: Urinalysis, Microscopic 1 {/HPF} [facility] Work Phone: Urinalysis, Microscopic 2+ [facility] Work Phone: Vitamin B12, Serumon 019 Cobalamin (Vitamin B12) [Mass/Vol] 709 pg/mL 211 - 911 [facility] Work Phone: Hematologyon 11-30-2018 Hematocrit (Bld) [Volume fraction] 34.2 % below low threshold See Below [facility] Work Phone: Comment on above: Reference Range: 36. 0 - 46.0 Hemoglobin (Bld) [Mass/Vol] 10.6 g/dL below low threshold See Below [facility] Work Phone: Comment on above: Reference Range: 12. 0 - 16.0 MCV (RBC) [Entitic vol] 107 fL above high threshold 80 - 100 [facility] Work Phone: Platelets (Bld) [#/Vol] 348 {x10E9/L} 150 - 450 [facility] Work Phone: RBC (Bld) [#/Vol] 3.19 {x10E12/L} below low threshold See Below [facility] Work Phone: Comment on above: Reference Range: 4.0 0 - 5.20 WBC (Bld) [#/Vol] 9.7 {x10E9/L} 4.4 - 11.3 [facility] Work Phone: WBC (Bld) [#/Vol] 0.0 {/100_WBC} 0.0-0.0 [facility] Work Phone: Metabolic Panelon 11-30-2018 ALP [Catalytic activity/Vol] 61 U/L 33 - 136 [facility] Work Phone: Anion gap [Moles/Vol] 15 mmol/L 10 - 20 [facility] Work Phone: Bilirubin [Mass/Vol] 0.4 mg/dL 0.0 - 1.2 [facility] Work Phone: Calcium [Mass/Vol] 10.5 mg/dL 8.6 - 10.6 [facility] Work Phone: Chloride [Moles/Vol] 105 mmol/L 98 - 107 [facility] Work Phone: CO2 [Moles/Vol] 25 mmol/L 21 - 32 [facility] Work Phone: Creatinine [Mass/Vol] 1.65 mg/dL above high threshold See Below [facility] Work Phone: Comment on above: Reference Range: 0.5 0 - 1.05 Glucose [Mass/Vol] 82 mg/dL 74 - 99 [facility] Work Phone: Potassium [Moles/Vol] 4.3 mmol/L 3.5 - 5.3 [facility] Work Phone: Protein [Mass/Vol] 7.0 g/dL 6.4 - 8.2 [facility] Work Phone: Sodium [Moles/Vol] 141 mmol/L 136 - 145 [facility] Work Phone: Urea nitrogen [Mass/Vol] 43 mg/dL above high threshold 6 - 23 [facility] Work Phone: Otheron 11-30-2018 Albumin BCP dye [Mass/Vol] 3.6 g/dL 3.4 - 5.0 [facility] Work Phone: ALT With P-5'-P [Catalytic activity/Vol] 10 U/L 7 - 45 [facility] Work Phone: Comment on above: Patients treated wit h Sulfasalazine may generate falsely decreased results for ALT. AST With P-5'-P [Catalytic activity/Vol] 14 U/L 9 - 39 [facility] Work Phone: Erythrocyte distribution width (RBC) [Ratio] 13.6 % See Below [facility] Work Phone: Comment on above: Reference Range: 11. 5 - 14.5 MCHC (RBC) [Mass/Vol] 31.0 g/dL below low threshold See Below [facility] Work Phone: Comment on above: Reference Range: 32. 0 - 36.0 36 {mL/min/1.73m2} Abnormal >60 [facility] Work Phone: Comment on above: CALCULATIONS OF ALVARO MATED GFR ARE PERFORMED USING THE MDRD STUDY EQUATION FOR THE IDMS-TRACEABLE CREATININE METHODS. CLIN CHEM 2007;53:766-72 30 {mL/min/1.73m2} Abnormal >60 [facility] Work Phone: Hematologyon 05-26-2018 Hematocrit (Bld) [Volume fraction] 38.6 % See Below [facility] Work Phone: Comment on above: Reference Range: 36. 0 - 46.0 Hemoglobin (Bld) [Mass/Vol] 12.0 g/dL See Below [facility] Work Phone: Comment on above: Reference Range: 12. 0 - 16.0 MCV (RBC) [Entitic vol] 108 fL above high threshold 80 - 100 [facility] Work Phone: Platelets (Bld) [#/Vol] 245 {x10E9/L} 150 - 450 [facility] Work Phone: RBC (Bld) [#/Vol] 3.56 {x10E12/L} below low threshold See Below [facility] Work Phone: Comment on above: Reference Range: 4.0 0 - 5.20 WBC (Bld) [#/Vol] 6.9 {x10E9/L} 4.4 - 11.3 [facility] Work Phone: WBC (Bld) [#/Vol] 0.1 {/100_WBC} 0.0-0.0 [facility] Work Phone: Lipid Panelon 05-26-2018 Cholesterol [Mass/Vol] 165 mg/dL 0 - 199 [facility] Work Phone: Comment on above: . AGE [...] dosing. Cholesterol in HDL [Mass/Vol] 44.1 mg/dL [facility] Work Phone: Comment on above: . AGE VERY LOW LOW N ORMAL HIGH 0-19 Y < 35 < 40 40-45 ---- 20- 24 Y ---- < 40 >45 ---- >24 Y ---- < 40 40-60 >60. Cholesterol in LDL [Mass/Vol] 82 mg/dL 0 - 99 [facility] Work Phone: Comment on above: . NEAR BORD AGE TORI RABLE OPTIMAL HIGH HIGH VERY HIGH 0-19 Y 0 - 109 --- 110-129 >/= 130 ---- 20-24 Y 0 - 119 --- 120-159 >/= 160 ---- >24 Y 0 - 99 100-129 130-159 160-189 >/=190. Cholesterol.total/Cho lesterol in HDL [Mass ratio] 3.7 {ratio} [facility] Work Phone: Comment on above: REF VALUESDESIRABLE < 3.4HIGH RISK > 5.0 Triglyceride [Mass/Vol] 194 mg/dL above high threshold 0 - 149 [facility] Work Phone: Comment on above: . AGE [...] Lipid Panel 39 mg/dL 0 - 40 [facility] Work Phone: Metabolic Panelon 05-26-2018 Anion gap [Moles/Vol] 15 mmol/L 10 - 20 [facility] Work Phone: Calcium [Mass/Vol] 10.0 mg/dL 8.6 - 10.6 [facility] Work Phone: Chloride [Moles/Vol] 105 mmol/L 98 - 107 [facility] Work Phone: CO2 [Moles/Vol] 26 mmol/L 21 - 32 [facility] Work Phone: Creatinine [Mass/Vol] 1.15 mg/dL above high threshold See Below [facility] Work Phone: Comment on above: Reference Range: 0.5 0 - 1.05 Glucose [Mass/Vol] 72 mg/dL below low threshold 74 - 99 [facility] Work Phone: Potassium [Moles/Vol] 4.8 mmol/L 3.5 - 5.3 [facility] Work Phone: Sodium [Moles/Vol] 141 mmol/L 136 - 145 [facility] Work Phone: Urea nitrogen [Mass/Vol] 29 mg/dL above high threshold 6 - 23 [facility] Work Phone: Otheron 05-26-2018 Erythrocyte distribution width (RBC) [Ratio] 13.6 % See Below [facility] Work Phone: Comment on above: Reference Range: 11. 5 - 14.5 MCHC (RBC) [Mass/Vol] 31.1 g/dL below low threshold See Below [facility] Work Phone: Comment on above: Reference Range: 32. 0 - 36.0 54 {mL/min/1.73m2} Abnormal >60 [facility] Work Phone: Comment on above: CALCULATIONS OF ALVARO MATED GFR ARE PERFORMED USING THE MDRD STUDY EQUATION FOR THE IDMS-TRACEABLE CREATININE METHODS. CLIN CHEM 2007;53:766-72 45 {mL/min/1.73m2} Abnormal >60 [facility] Work Phone: Vitamin D 25-Hydroxyon 05-26 Calcidiol [Mass/Vol] 38 ng/mL [facility] Work Phone: Comment on above: .DEFICIENCY: < 20 NG /MLINSUFFICIENCY: 20-29 NG/MLOPTIMUM LEVEL: 30-80 NG/MLPOSSIBLE TOXICITY: > 80 NG/MLTHIS ASSAY ACCURATELY QUANTIFIES THE SUM OFVITAMIN D3, 25-HYDROXY AND VIT D2,25-HYDROXY. LUMBAR COMP W FLEX/EX MIN 6V WSon 12-09-2017 LUMBAR COMP W FLEX/EX MIN 6VWS STUDY:LUMBAR COMP W FLEX/EX MIN 6VWS; 12/09/2017 11:10 amINDICATION:BACK PAIN.COMPARISON:09/24/[address] abdomen and pelvis 07/02/2017. RING CLINICIAN:Susie CohenINGS:AP, lateral, and coned-down views of the lumbosacral spine areprovided. Bilateral oblique views are also provided. Flexion andextension lateral views are also provided.Interval redemonstration of multiple compression deformities of thethoracolumbar spine including severe height loss of T8 and O67tvpaeilge body and approximately 50% height loss of [...] visualizedabdominal aorta and the iliac arteries. Normal [facility] CBC AND DIFFERENTIALon 11-06 % AUTOMATED IMMATURE GRAN 0.3 % Normal 0.0 - 0.9 [facility] Comment on above: Result Comment: Perc ent differential counts (%) should be interpreted in the context of the absolute cell counts (cells/L). Performed By: #### V TDOH ####[facility] [place] [address] % NEUTROPHIL 64.8 % Normal 40.0 - 80.0 [facility] Comment on above: Performed By: #### V TDOH ####[facility] [place] [address] Basophils/100 WBC Auto (Bld) 0.04 x10E9/L Normal 0.00 - 0.10 [facility] Comment on above: Performed By: #### V TDOH ####[facility] [place] [address] Basophils/100 WBC Auto (Bld) 0.7 % Normal 0.0 - 2.0 [facility] [facility] Comment on above: Performed By: #### V TDOH ####[facility] [place] [address] Eosinophils Auto #/vol (Bld) 0.06 10*3/uL Normal 0.00 - 0.40 [facility] Comment on above: Performed By: #### V TDOH ####[facility] [place] [address] Eosinophils/100 WBC Auto (Bld) 1.0 % Normal 0.0 - 6.0 [facility] Comment on above: Performed By: #### V TDOH ####[facility] [place] [address] Erythrocyte distribution width Auto Ratio (RBC) 16.1 % High 11.5 - 14.5 [facility] Comment on above: Performed By: #### V TDOH ####[facility] [place] [address] Hematocrit Auto Volume Fraction (Bld) 39.0 % Normal 36.0 - 46.0 [facility] Comment on above: Performed By: #### V TDOH ####[facility] [place] [address] Hemoglobin mass conc (Bld) 12.0 g/dL Normal 12.0 - 16.0 [facility] Comment on above: Performed By: #### V TDOH ####[facility] [place] [address] Lymphocytes Auto #/vol (Bld) 1.59 10*3/uL Normal 0.80 - 3.00 [facility] Comment on above: Performed By: #### V TDOH ####[facility] [place] [address] Lymphocytes/100 WBC Auto (Bld) 27.1 % Normal 13.0 - 44.0 [facility] Comment on above: Performed By: #### V TDOH ####[facility] [place] [address] MCHC Auto mass conc (RBC) 30.8 g/dL Low 32.0 - 36.0 [facility] Comment on above: Performed By: #### V TDOH ####[facility] [place] [address] MCV Auto Entitic volume (RBC) 101 fL High 80 - 100 [facility] Comment on above: Performed By: #### V TDOH ####[facility] [place] [address] Monocytes Auto #/vol (Bld) 0.36 10*3/uL Normal 0.05 - 0.80 [facility] Comment on above: Performed By: #### V TDOH ####[facility] [place] [address] Monocytes/100 WBC Auto (Bld) 6.1 % Normal 2.0 - 10.0 [facility] Comment on above: Performed By: #### V TDOH ####[facility] [place] [address] Neutrophils Auto #/vol (Bld) 3.79 10*3/uL Normal 1.60 - 5.50 [facility] Comment on above: Performed By: #### V TDOH ####[facility] [place] [address] Platelets Auto #/vol (Bld) 300 10*3/uL Normal 150 - 450 [facility] Comment on above: Performed By: #### V TDOH ####[facility] [place] [address] RBC Auto #/vol (Bld) 3.88 x10E12/L Low 4.00 - 5.20 [facility] Comment on above: Performed By: #### V TDOH ####[facility] [place] [address] WBC Auto #/vol (Bld) 5.9 10*3/uL Normal 4.4 - 11.3 [facility] Comment on above: Performed By: #### V TDOH ####[facility] [place] [address] COMPREHENSIVE PANELon 2017 Albumin mass conc 3.6 g/dL Normal 3.4 - 5.0 [facility] Comment on above: Performed By: #### V TDOH ####[facility] [place] [address] ALP enzyme act/vol 56 U/L Normal 33 - 136 [facility] Comment on above: Performed By: #### V TDOH ####[facility] [place] [address] ALT enzyme act/vol 13 U/L Normal 7 - 45 [facility] Comment on above: Result Comment: Daniel ents treated with Sulfasalazine may generate falsely decreased results for ALT. Performed By: #### V TDOH ####[facility] [place] [address] Anion gap 3 molar conc 15 mmol/L Normal 10 - 20 [facility] Comment on above: Performed By: #### V TDOH ####[facility] [place] [address] AST enzyme act/vol 19 U/L Normal 9 - 39 [facility] Comment on above: Performed By: #### V TDOH ####[facility] [place] [address] Bilirubin mass conc 0.3 mg/dL Normal 0.0 - 1.2 [facility] Comment on above: Performed By: #### V TDOH ####[facility] [place] [address] Calcium mass conc 9.5 mg/dL Normal 8.6 - 10.3 [facility] Comment on above: Performed By: #### V TDOH ####[facility] [place] [address] Chloride molar conc 105 mmol/L Normal 98 - 107 [facility] Comment on above: Performed By: #### V TDOH ####[facility] [place] [address] Creatinine mass conc 1.06 mg/dL High 0.50 - 1.05 [facility] Comment on above: Performed By: #### V TDOH ####[facility] [place] [address] GFR- AM. 61 mL/min/1.73m2 Normal >60 [facility] Comment on above: Result Comment: CALC ULATIONS OF ESTIMATED GFR ARE PERFORMED USING THE MDRD STUDY EQUATION FOR THE IDMS-TRACEABLE CREATININE METHODS. CLIN CHEM 2007;53:766-72 Performed By: #### V TDOH ####[facility] [place] [address] GFR-NON AM. 50 mL/min/1.73m2 Abnormal >60 [facility] Comment on above: Performed By: #### V TDOH ####[facility] [place] [address] Glucose mass conc 109 mg/dL High 74 - 99 [facility] Comment on above: Performed By: #### V TDOH ####[facility] [place] [address] HCO3 molar conc (Bld) 24 mmol/L Normal 21 - 32 [facility] Comment on above: Performed By: #### V TDOH ####[facility] [place] [address] Potassium molar conc 4.5 mmol/L Normal 3.5 - 5.3 [facility] Comment on above: Performed By: #### V TDOH ####[facility] [place] [address] Protein mass conc 7.3 g/dL Normal 6.4 - 8.2 [facility] Comment on above: Performed By: #### V TDOH ####[facility] [place] [address] Sodium molar conc 139 mmol/L Normal 136 - 145 [facility] Comment on above: Performed By: #### V TDOH ####[facility] [place] [address] Urea nitrogen mass conc 19 mg/dL Normal 6 - 23 [facility] Comment on above: Performed By: #### V TDOH ####[facility] [place] [address] BASIC METABOLIC PANELon 09-0 Anion gap 3 molar conc 9 mmol/L Low 10 - 20 [facility] Comment on above: Performed By: #### V TDOH ####[facility] [place] [address] Calcium mass conc 8.4 mg/dL Low 8.6 - 10.3 [facility] Comment on above: Performed By: #### V TDOH ####[facility] [place] [address] Chloride molar conc 110 mmol/L High 98 - 107 [facility] Comment on above: Performed By: #### V TDOH ####[facility] [place] [address] Creatinine mass conc 0.61 mg/dL Normal 0.50 - 1.05 [facility] Comment on above: Performed By: #### V TDOH ####[facility] [place] [address] GFR- AM. >60 Normal >60 [facility] Comment on above: Result Comment: CALC ULATIONS OF ESTIMATED GFR ARE PERFORMED USING THE MDRD STUDY EQUATION FOR THE IDMS-TRACEABLE CREATININE METHODS. CLIN CHEM 2007;53:766-72 Performed By: #### V TDOH ####[facility] [place] [address] GFR-NON AM. >60 Normal >60 [facility] Comment on above: Performed By: #### V TDOH ####[facility] [place] [address] Glucose mass conc 103 mg/dL High 74 - 99 [facility] Comment on above: Performed By: #### V TDOH ####[facility] [place] [address] HCO3 molar conc (Bld) 26 mmol/L Normal 21 - 32 [facility] Comment on above: Performed By: #### V TDOH ####[facility] [place] [address] Potassium molar conc 3.9 mmol/L Normal 3.5 - 5.3 [facility] Comment on above: Performed By: #### V TDOH ####[facility] [place] [address] Sodium molar conc 141 mmol/L Normal 136 - 145 [facility] Comment on above: Performed By: #### V TDOH ####[facility] [place] [address] Urea nitrogen mass conc 10 mg/dL Normal 6 - 23 [facility] Comment on above: Performed By: #### V TDOH ####[facility] [place] [address] CBCon 10-13-2017 Erythrocyte distribution width Auto Ratio (RBC) 16.1 % High 11.5 - 14.5 [facility] Comment on above: Performed By: #### V TDOH ####[facility] [place] [address] Hematocrit Auto Volume Fraction (Bld) 32.7 % Low 36.0 - 46.0 [facility] Comment on above: Performed By: #### V TDOH ####[facility] [place] [address] Hemoglobin mass conc (Bld) 10.3 g/dL Low 12.0 - 16.0 [facility] Comment on above: Performed By: #### V TDOH ####[facility] [place] [address] MCHC Auto mass conc (RBC) 31.5 g/dL Low 32.0 - 36.0 [facility] Comment on above: Performed By: #### V TDOH ####[facility] [place] [address] MCV Auto Entitic volume (RBC) 98 fL Normal 80 - 100 [facility] Comment on above: Performed By: #### V TDOH ####[facility] [place] [address] Platelets Auto #/vol (Bld) 238 10*3/uL Normal 150 - 450 [facility] Comment on above: Performed By: #### V TDOH ####[facility] [place] [address] RBC Auto #/vol (Bld) 3.33 x10E12/L Low 4.00 - 5.20 [facility] Comment on above: Performed By: #### V TDOH ####[facility] [place] [address] WBC Auto #/vol (Bld) 7.3 10*3/uL Normal 4.4 - 11.3 [facility] Comment on above: Performed By: #### V TDOH ####[facility] [place] [address] Daily Progress Note-Surgery ( Medical Student Note , Pepe 10-13-2017 Protein mass conc Service: SurgeryMedi ramiro Student: Medical Student Note Lula Merrill PA-S2 Subjective Data:KATHERINE JUDGE is a 82 year old Female who is Hospital Day # 5. Pt is awake and alert but seems slightly confused about her current situation.Denies abd pain, n/v. Per nursing, has not been hallucinating. Overnight Events: Patient had an uneventful night. Objective Data: Objective Information:John [id number]/729 8%Date/Time10/13 6: 6: 6:5210/13 6: 6:52Range(36.8C - 37.4C ) (63 - 71 [...] Injectable Flush: 10 mL IntraVenous Flush Every 75Ajtys99. Vancomycin Oral Liquid: 250 mg Oral Every 6 Hours PRN Medications ---- 1. Acetaminophen: 650 mg Oral Every 4 Hours2. diphenhydrAMINE 2% Topical: 1 application(s) Topical 4 Times a Day3. Heparin Flush 10 unit/ mL PF Injectable: 5 mL IntraVenous Flush Every 11Cohpc3. Heparin Flush 10 unit/ mL PF Injectable [...] 16.1 H Basic Metabolic Panel Trending View Phbtuw82-Ira-0174 05:30:00 12-Oct-2017 19:27:00Glucose, Pbgwz738 H 148 TIO854 141K3.9 4.1GR809 H 112 HBicarbonate, Serum26 22Anion Gap, Serum9 L 90URT45 26EMMMZ8.61 0.64GFR-Non >60 >60GFR->60 >60Calcium, Serum8.4 L 8.5 [...] by mouth vanco needed Electronic Signatures:Lula Merrill ([facility]) (Signed 13-Oct-2017 10:19)Authored: Service, Subjective Data, Objective Data, Assessment and Plan,Signature/Cosignature/A ttestationManny Arana) (Signed 13-Oct-2017 17:09)Authored: Signature/Cosignature/Attest ationCo-Signer: Service, Subjective Data, Objective Data, Assessment and Plan,Signature/Cosignature/A ttestation Last Updated: 13-Oct-2017 17:09 by Manny Arana) [facility] Discharge Planning Noteon Discharge Planning Note Discharge Needs Assessment:? Discharge Planning Assessment Eleh05-Yvd-7116? Discharge Planning Assessment Completed bySom Chaudhari CC Adult Information:? Lives Withspouse? Financial Concernsnone Patient [...] 15. This SW rec'd phone call from sonDaya Schuler: he isdriving from [place] to check on his parents. He states that his parents arehaving a difficult time at home by themselves due to worsening confusion inboth of them. He states his mother has been the supervisor modern languages of his father whohas had CVA's and [...] a qualifyingstay for Medicare payment of SNF. PERI checked her Medicare days and found thatalthough she has had rehab this summer, she still has 33 days available. Heplans on talking to his parents about moving into a facility near him in [facility] that he can visit them more readily. He feels they may qualify for Medicaid.Pt's spouse is home alone. Both see Dr. Roque as PCP and son states hisfather was just in to see Dr. Sam. HSon is DPOA for both parents and wouldlike [...] dementias progress. Above was relayed to Som Jones.RN/Manufacturing Sales Representative who is working with this pt today. BRANDON Bonner 10/13/17 0900 Met with Brayan at bedside and Norm chose [facility] for therapy, Referral sent and patient will be discharged to [facility] today, Discharge orders sent via [employer]. Som Chaudhari [facility] Electronic Signatures:Som Chaudhari ([facility]) (Signed 13-Oct-2017 16:32)Authored: Discharge Planning Elaina Dacosta ([facility]) (Signed 13-Oct-2017 12:46)Authored: Discharge Planning Note Last Updated: 13-Oct-2017 16:32 by Som Chaudhari ([facility]) References:1. Data Referenced From "5. Education" 10/09/2017 09:02 PM2. Data Referenced From Admission Risk Screen - Adult" 10/09/2017 09:02 PM Normal [facility] Discharge Hvwtpxn8ps 018 Protein mass conc Discharge Orders:Ant icipated Discharge Date:? Anticipated Discharge [id number] Problem List: Admitting Dx:? Clostridium difficile colitis: Catalog Name: Enterocolitis due toClostridium difficile, not specified as recurrent Additional Dx:? 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 Hypokalemia: Catalog Name: Hypokalemia Significant Events:CABG (2 vessel): Past Surgical History, 68-Uwf-7660Xjileil Catheterization: Past Surgical Historycataract: Past Surgical History, bilateral with lens implantappendectomy: Past Surgical History, 26 years agocomplete hysterectomy: Past Surgical History, 27 years agobilat knee replacement: Past Surgical HistoryDNRCCA 10/09/2017: Past Medical HistoryCongestive Heart Failure (CHF): Past Medical HistoryChronic anemia: Past Medical HistoryVenous thromboembolism: Past Medical HistorySepsis: Past Medical HistoryCoronary atherosclerosis: Past Medical HistoryNon ST elevation CA: Past Medical History, 22-Mgh-9796JXL: Past Medical HistoryGERD: Past Medical HistoryUTI: Past Medical Historyumbilical hernia: Past Medical Historydiverticulitis: Past Medical Historyosteoporosis: Past Medical Historyanxiety: Past Medical Historydepression: Past Medical Historypost shingles neuropathy: Past Medical Historyhypercholesterolemia: Past Medical Historyherniated disc lumbar area: Past Medical Historyarthritis: Past Medical HistoryHypertension (HTN): Past Medical Historygi bleed: Past Medical Historymitral valve regurgitation: Past Medical Historycolitis: Past Medical HistoryFamily spokesperson: Other, CARLOS [phone] BROTHERPAUL VELOZ [phone] Use: OtherClostridium difficile toxin (C-Diff): Infection Control, 69-Tuo-9106Glbmspxgkwe difficile toxin (C-Diff): Infection Control, 94-Sxl-9087Wvwczfgxtwi difficile toxin (C-Diff): Infection Control, 27-Aug-2012, ivory ( [facility])Methicillin-Resistant Staph Aureus (MRSA): Infection Control, Mar 2012, sputum.Influenza- Influenza Virus: Immunizations, 86-Vgt-4698BFY- Pneumococcal conjugate vaccine: Immunizations, 12-Oct-2017.Pneumonia- Pneumococcal polysaccharide vaccine-adult: Immunizations.Influenza- Influenza Virus: Immunizations, 99-Nvl-8746Tmcfrpb Information: Contactsdontae [phone] Hospital Providers:Provider RoleProvider Name? Clif Morataya A? FreddieMelvina Manny P? DaneMedwaystas, Benjy Guerra? Aria Schmitt DNAR:? DNAR StatusDNAR Activity:activity as tolerated. Diet:? Dietlow fiber? Diet Consistency/Texturesoft Additive/Supplement 1:Supplement. Boost Plus 1 by mouth 2 times a day. Hospital Course (Home Care/Gold Form):Hospital Course:? Hospital Course: include significant abnormal lab kgwfxu54 year old female from home with who stated that she has had abdominalpain, diarrhea, not eating, generalized weakness for the past one week or sobut worse since Thursday. Denied f/c. Has some urinary discomfort. PMHxsignificant for failure to thrive, gastrocutaneous fistula, constipation,ileus, small bowel obstruction, transient ischemic colitis, anemia, proteincalorie malnutrition, hypokalemia, hypomagnesemia and [facility]. Patient has had multiple abdominalsurgeries in the past. She was recently discharged from the hospital on09/01/17 and then a week later for management of small bowel obstruction andAMS. Treatment course in the ED included starting IV fluids, Cipro, Flagyl and oralVanco.stool for c diff +.Sodium 135, K 4.1, Bun/Creat 27/1.73Access started by PICC STONE PLANER in ED Hospital course: Patient was admitted to [facility] Med[facility]Surg for Acute colitis with C. Diff,hypokalemia, [...] Medication Reconciliation and Orders Completedby Physician? Reviewing ProviderEvabdiel Gandhi MD at 13-Oct-2017 14:43:14 Gold Form - Nursing Summary:Special Treatments/Procedures (in past 14 days):? Chemotherapyno? Dialysisno? IV Medicationyes? Last Date Ycdjwahq10-Woj-5523? Oxygen Therapyno? Transfusionsno? Feverno? Radiationno? Ventilatorno? Tracheostomyno? Suctioningno Nutrition:? Nutritional Statusfeeds self Sensory/Comfort:? Visionadequate? Hearingadequate? Speechaphasia? Painyes? Pain Typechronic arthritic? Pain Locationknees, back? Whenvaries? Pain Relieved Byacetaminophen Elimination:? Bladdercontinent? Bowelcontinent? Last Bowel Coaclbpx27-Pvv-3195? Toiletingtoilet Safety:? Siderailsyes? Siderails Number/Reason2 for saftey? Restraintsno? Sitterno? Fall Riskprevious falls, weakness Medication/Hygiene/Mobility: ? Medication Administrationtotal dependent? Bathingassist? Dressingassist? Bed Mobilityassist? Wheelchairassist? Transfersassist? Ambulationassist Gold Form - Tree Tapping Laborer Summary:Referral Information:? Referral [facility]? Referring Facility [facility]? Contact Sebastian Chaudhari [facility]? Contact Phone [phone] Mental & Functional Status:? Capacity For Independent Living/Senior Care Planreturn home? Mental/Functional Commentalert and oriented Electronic Signatures:Aria Gandhi) (Signed 13-Oct-2017 14:43)Authored: Provider FINAL REVIEW of OrdersSom Chaudhari ([facility]) (Signed 13-Oct-2017 10:27)Authored: Gold Form - Tree Tapping Laborer SummaryVanessa Cortes (RN PRN) (Signed 13-Oct-2017 16:25)Authored: Gold Form - Nursing SummaryAlex Tillman (CHILD DAY CARE TEACHER-CONTROL CABINET ASSEMBLER) (Signed 13-Oct-2017 14:39)Authored: Discharge Orders, Hospital Course (Home Care/Gold Form), ProviderFINAL REVIEW of Orders Last Updated: 13-Oct-2017 16:25 by Vanessa Cortes (RN PRN) Normal [facility] MAGNESIUMon 10-13-2017 Magnesium mass conc 1.87 mg/dL Normal 1.60 - 2.40 [facility] Comment on above: Performed By: #### V TDOH ####[facility] [place] [address] BASIC METABOLIC PANELon 09-0 Anion gap 3 molar conc 11 mmol/L Normal 10 - 20 [facility] Comment on above: Performed By: #### V TDOH ####[facility] [place] [address] Calcium mass conc 8.5 mg/dL Low 8.6 - 10.3 [facility] Comment on above: Performed By: #### V TDOH ####[facility] [place] [address] Chloride molar conc 112 mmol/L High 98 - 107 [facility] Comment on above: Performed By: #### V TDOH ####[facility] [place] [address] Creatinine mass conc 0.64 mg/dL Normal 0.50 - 1.05 [facility] Comment on above: Performed By: #### V TDOH ####[facility] [place] [address] GFR- AM. >60 Normal >60 [facility] Comment on above: Result Comment: CALC ULATIONS OF ESTIMATED GFR ARE PERFORMED USING THE MDRD STUDY EQUATION FOR THE IDMS-TRACEABLE CREATININE METHODS. CLIN CHEM 2007;53:766-72 Performed By: #### V TDOH ####[facility] [place] [address] GFR-NON AM. >60 Normal >60 [facility] Comment on above: Performed By: #### V TDOH ####[facility] [place] [address] Glucose mass conc 148 mg/dL High 74 - 99 [facility] Comment on above: Performed By: #### V TDOH ####[facility] [place] [address] HCO3 molar conc (Bld) 22 mmol/L Normal 21 - 32 [facility] Comment on above: Performed By: #### V TDOH ####[facility] [place] [address] Potassium molar conc 4.4 mmol/L Normal 3.5 - 5.3 [facility] Comment on above: Performed By: #### V TDOH ####[facility] [place] [address] Sodium molar conc 141 mmol/L Normal 136 - 145 [facility] Comment on above: Performed By: #### V TDOH ####[facility] [place] [address] Urea nitrogen mass conc 11 mg/dL Normal 6 - 23 [facility] Comment on above: Performed By: #### V TDOH ####[facility] [place] [address] Daily Progress Note-Medicine on 10-12-2017 Protein mass conc Service: Medicine Rick bjective Data:KATHERINE JUDGE is a 82 year old Female who is Hospital Day # 4. c diff colitis. Overnight Events: Acute events in the past 24 hours includeAdditional Information:- denied abd pain, feels she is doing better- "stated I fell out of bed this morning and broke my hip". "I think I have ascrew loose somewhere".- patient received ambien overnight, problems with insomnia Objective Data: Objective Information:T [id number]/719 5%Date/Time10/12 14: 14: 14: 14: 14:20Range(36.9C - [...] Injectable Flush: 10 mL IntraVenous Flush Every 40Folwb77. Vancomycin Oral Liquid: 250 mg Oral Every 6 Hours PRN Medications ---- 1. Acetaminophen: 650 mg Oral Every 4 Hours2. diphenhydrAMINE 2% Topical: 1 application(s) Topical 4 Times a Day3. Heparin Flush 10 unit/ mL PF Injectable: 5 mL IntraVenous Flush Every 59Gukzc9. Heparin Flush 10 unit/ mL PF Injectable [...] Count 3.23 LHGB 9.9 LHCT 31.4 LMCV [facility] 31.5 LPLT 253RDW-CV 16.0 H Basic Metabolic [...] Flonase Other: continue vit D, calcium Anemia / iron deficiency- continue daily iron, colacePoor IV access- likely due to dehydration, PICC line inserted in ED by PICC CONTROL CABINET ASSEMBLER Anxiety, depression- continue Wellbutrin- continue Sertraline Insomnia- hold trazadone- held ambien - pt confused overnight GERD- continue pantoprazole Neuropathy pain- hold Tizandine- continue Neurotin for now Urinary frequency- continue oxybutynin Impaired Functional Mobility- PT/OT evaluation, likely snf DVT pps- Ambulation, Lovenox held due to anemia Disposition: [facility] med/surg. Snf soon. Electronic Signatures:Alex Mayer (CHILD DAY CARE TEACHER-CONTROL CABINET ASSEMBLER) (Signed 12-Oct-2017 16:31)Authored: Service, Subjective Data, Objective Data, Assessment and Plan,Signature/Cosignature/A ttestation Last Updated: 12-Oct-2017 16:31 by Alex Mayer (CHILD DAY CARE TEACHER-CONTROL CABINET ASSEMBLER) Normal [facility] HIP, UNILATERAL W/PELVIS WHE N PERFORMED 2-3 [...] Electronically signed by: HOMER BELLAMY MD Normal [facility] BASIC METABOLIC PANELon Anion gap 3 molar conc 8 mmol/L Low 10 - 20 [facility] Comment on above: Performed By: #### L IPID ####[address] [place] [address] Calcium mass conc 8.1 mg/dL Low 8.6 - 10.3 [facility] Comment on above: Performed By: #### L IPID ####[address] [place] [address] Chloride molar conc 108 mmol/L High 98 - 107 [facility] Comment on above: Performed By: #### L IPID ####[address] [address] Creatinine mass conc 0.71 mg/dL Normal 0.50 - 1.05 [facility] Comment on above: Performed By: #### L IPID ####[address] [address] GFR- AM. >60 Normal >60 [facility] Comment on above: Result Comment: CALC ULATIONS OF ESTIMATED GFR ARE PERFORMED USING THE MDRD STUDY EQUATION FOR THE IDMS-TRACEABLE CREATININE METHODS. CLIN CHEM 2007;53:766-72 Performed By: #### L IPID ####[address] [address] GFR-NON AM. >60 Normal >60 [facility] Comment on above: Performed By: #### L IPID ####[address] [place] [address] Glucose mass conc 106 mg/dL High 74 - 99 [facility] Comment on above: Performed By: #### L IPID ####[address] [place] [address] HCO3 molar conc (Bld) 26 mmol/L Normal 21 - 32 [facility] Comment on above: Performed By: #### L IPID ####[address] [address] Potassium molar conc 3.3 mmol/L Low 3.5 - 5.3 [facility] Comment on above: Performed By: #### L IPID ####[address] [address] Sodium molar conc 139 mmol/L Normal 136 - 145 [facility] Comment on above: Performed By: #### L IPID ####[address] [place] [address] Urea nitrogen mass conc 7 mg/dL Normal 6 - 23 [facility] Comment on above: Performed By: #### L IPID ####[address] [place] [address] CBCon 10-11-2017 Erythrocyte distribution width Auto Ratio (RBC) 16.0 % High 11.5 - 14.5 [facility] Comment on above: Performed By: #### L IPID ####[address] [address] Hematocrit Auto Volume Fraction (Bld) 31.4 % Low 36.0 - 46.0 [facility] Comment on above: Performed By: #### L IPID ####[address] [address] Hemoglobin mass conc (Bld) 9.9 g/dL Low 12.0 - 16.0 [facility] Comment on above: Performed By: #### L IPID ####[address] [address] MCHC Auto mass conc (RBC) 31.5 g/dL Low 32.0 - 36.0 [facility] Comment on above: Performed By: #### L IPID ####[address] [address] MCV Auto Entitic volume (RBC) 97 fL Normal 80 - 100 [facility] Comment on above: Performed By: #### L IPID ####[address] [address] Platelets Auto #/vol (Bld) 253 10*3/uL Normal 150 - 450 [facility] Comment on above: Performed By: #### L IPID ####[address] [address] RBC Auto #/vol (Bld) 3.23 x10E12/L Low 4.00 - 5.20 [facility] Comment on above: Performed By: #### L IPID ####[address] [address] WBC Auto #/vol (Bld) 5.5 10*3/uL Normal 4.4 - 11.3 [facility] Comment on above: Performed By: #### L IPID ####[facility] [place] [address] Daily Progress Note-Medicine on 10-11-2017 Protein mass conc Service: Medicine Rick bjective Data:KATHERINE JUDGE is a 82 year old Female who is Hospital Day # 3. Patientassessed at bedside; sitting up in a chair. slightly confused today; complainedof not sleeping. She is aware she is seeing things that are not there. Objective Data: Objective Information:T [id number]/949 9%Date/Time10/11 6: 6: 6: 6: 6:28Range(36.4C - 36.6C ) (64 - 67 [...] Injectable Flush: 10 mL IntraVenous Flush Every 19Eauio12. Vancomycin Oral Liquid: 250 mg Oral Every 6 Hours PRN Medications ---- 1. Acetaminophen: 650 mg Oral Every 4 Hours2. diphenhydrAMINE 2% Topical: 1 application(s) Topical 4 Times a Day3. Heparin Flush 10 unit/ mL PF Injectable: 5 mL IntraVenous Flush Every 39Fiphu8. Heparin Flush 10 unit/ mL PF Injectable [...] Count 3.23 LHGB 9.9 LHCT 31.4 LMCV 97[facility] 31.5 LPLT 253RDW-CV 16.0 H Basic Metabolic [...] PICC line inserted in ED by PICC CONTROL CABINET ASSEMBLER Anxiety, depression- continue Wellbutrin- continue Sertraline Insomnia- hold trazadone- started ambien GERD- continue pantoprazole Neuropathy pain- hold Tizandine- continue Neurotin for now Urinary frequency- continue oxybutynin Impaired Funcitonal Mobility- PT/OT evaluation pending DVT pps- Ambulation, Lovenox held due to anemia Disposition: [facility] med/surg. Home soon. Electronic Signatures:Alex Tillman (CHILD DAY CARE TEACHER-CONTROL CABINET ASSEMBLER) (Signed 11-Oct-2017 18:54)Authored: Service, Subjective Data, Objective Data, Assessment and Plan,Signature/Cosignature/A ttestation Last Updated: 11-Oct-2017 18:54 by Alex Tillman (CHILD DAY CARE TEACHER-CONTROL CABINET ASSEMBLER) Normal [facility] Daily Progress Note-Surgeryo n 10-11-2017 Protein mass conc Service: Surgery Sub jective Data:KATHERINE JUDGE is a 82 year old Female who is Hospital Day # 3. HALLUCINATING / NO PAIN / LESS DIARRHEA. Objective Data: Objective Information:T [id number]/949 9%Date/Time10/11 6: 6: 6:289 6:289 6:28Range(36.4C - 36.6C ) (64 - 67 [...] Updated: 11-Oct-2017 08:30 by Manny Arana) Normal [facility] MAGNESIUMon 10-11-2017 Magnesium mass conc 1.54 mg/dL Low 1.60 - 2.40 [facility] Comment on above: Performed By: #### V TDOH ####[facility] [place] [address] BASIC METABOLIC PANELon Anion gap 3 molar conc 10 mmol/L Normal 10 - 20 [facility] Comment on above: Performed By: #### L IPID ####[address] [place] [address] Calcium mass conc 8.2 mg/dL Low 8.6 - 10.3 [facility] Comment on above: Performed By: #### L IPID ####[address] [address] Chloride molar conc 104 mmol/L Normal 98 - 107 [facility] Comment on above: Performed By: #### L IPID ####[address] [place] [address] Creatinine mass conc 1.14 mg/dL High 0.50 - 1.05 [facility] Comment on above: Performed By: #### L IPID ####[address] [place] [address] GFR- AM. 56 mL/min/1.73m2 Abnormal >60 [facility] Comment on above: Result Comment: CALC ULATIONS OF ESTIMATED GFR ARE PERFORMED USING THE MDRD STUDY EQUATION FOR THE IDMS-TRACEABLE CREATININE METHODS. CLIN CHEM 2007;53:766-72 Performed By: #### L IPID ####[address] [place] [address] GFR-NON AM. 46 mL/min/1.73m2 Abnormal >60 [facility] Comment on above: Performed By: #### L IPID ####[address] [place] [address] Glucose mass conc 102 mg/dL High 74 - 99 [facility] Comment on above: Performed By: #### L IPID ####[address] [address] HCO3 molar conc (Bld) 27 mmol/L Normal 21 - 32 [facility] Comment on above: Performed By: #### L IPID ####[address] [place] [address] Potassium molar conc 3.5 mmol/L Normal 3.5 - 5.3 [facility] Comment on above: Performed By: #### L IPID ####[address] [place] [address] Sodium molar conc 137 mmol/L Normal 136 - 145 [facility] Comment on above: Performed By: #### L IPID ####[address] [address] Urea nitrogen mass conc 18 mg/dL Normal 6 - 23 [facility] Comment on above: Performed By: #### L IPID ####[address] [address] CBC AND DIFFERENTIALon 10-10 % AUTOMATED IMMATURE GRAN 0.3 % Normal 0.0 - 0.9 [facility] Comment on above: Result Comment: Perc ent differential counts (%) should be interpreted in the context of the absolute cell counts (cells/L). Performed By: #### L IPID ####[address] [address] % NEUTROPHIL 69.7 % Normal 40.0 - 80.0 [facility] Comment on above: Performed By: #### L IPID ####[address] [address] Basophils/100 WBC Auto (Bld) 0.04 x10E9/L Normal 0.00 - 0.10 [facility] Comment on above: Performed By: #### L IPID ####[address] [address] Basophils/100 WBC Auto (Bld) 0.5 % Normal 0.0 - 2.0 [facility] Comment on above: Performed By: #### L IPID ####[address] [address] Eosinophils Auto #/vol (Bld) 0.15 10*3/uL Normal 0.00 - 0.40 [facility] Comment on above: Performed By: #### L IPID ####[address] [address] Eosinophils/100 WBC Auto (Bld) 2.0 % Normal 0.0 - 6.0 [facility] Comment on above: Performed By: #### L IPID ####[address] [address] Erythrocyte distribution width Auto Ratio (RBC) 15.9 % High 11.5 - 14.5 [facility] Comment on above: Performed By: #### L IPID ####[address] [address] Hematocrit Auto Volume Fraction (Bld) 29.3 % Low 36.0 - 46.0 [facility] Comment on above: Performed By: #### L IPID ####[address] [address] Hemoglobin mass conc (Bld) 9.4 g/dL Low 12.0 - 16.0 [facility] Comment on above: Performed By: #### L IPID ####[address] [address] Lymphocytes Auto #/vol (Bld) 1.63 10*3/uL Normal 0.80 - 3.00 [facility] Comment on above: Performed By: #### L IPID ####[address] [address] Lymphocytes/100 WBC Auto (Bld) 22.0 % Normal 13.0 - 44.0 [facility] Comment on above: Performed By: #### L IPID ####[address] [address] MCHC Auto mass conc (RBC) 32.1 g/dL Normal 32.0 - 36.0 [facility] Comment on above: Performed By: #### L IPID ####[address] [address] MCV Auto Entitic volume (RBC) 97 fL Normal 80 - 100 [facility] Comment on above: Performed By: #### L IPID ####[address] [address] Monocytes Auto #/vol (Bld) 0.41 10*3/uL Normal 0.05 - 0.80 [facility] Comment on above: Performed By: #### L IPID ####[facility] [place] [address] Monocytes/100 WBC Auto (Bld) 5.5 % Normal 2.0 - 10.0 [facility] Comment on above: Performed By: #### L IPID ####[address] [place] [address] Neutrophils Auto #/vol (Bld) 5.16 10*3/uL Normal 1.60 - 5.50 [facility] Comment on above: Performed By: #### L IPID ####[address] [place] [address] Platelets Auto #/vol (Bld) 246 10*3/uL Normal 150 - 450 [facility] Comment on above: Performed By: #### L IPID ####[address] [place] [address] RBC Auto #/vol (Bld) 3.02 x10E12/L Low 4.00 - 5.20 [facility] Comment on above: Performed By: #### L IPID ####[address] [address] WBC Auto #/vol (Bld) 7.4 10*3/uL Normal 4.4 - 11.3 [facility] Comment on above: Performed By: #### L IPID ####[address] [place] [address] CLOST.DIFF.TOXIN,PCRon 10-10 CLOST.DIFF.TOXIN,PCR DETECTED Abnormal Not Detected [facility] Comment on above: Order Comment: +CDPC R [...] per 7 days.+CDPCR Called- RB to OSMAR SANTILLAN, 10/10/2017 03:35 Performed By: #### L IPID ####[address] [place] [address] Consult-Infectious Diseaseon 10-10-2017 Consult-Infectious Disease Service:Service: Infectious Disease Consult:Consult requested by (Attending Name): SherrySammi: C diff infection History of Present Illness:HPI:82-year-old [...] bowel obstruction (disorder):Acute bowel obstruction: Onset Date: 85-Mth-8614Poehdpirqrb abdominal pain (finding):Acute bowel obstruction:Acute bowel obstruction: [...] Confusion? Restoril: Confusion Objective: Objective Information: T [id number]/749 9%Date/Time10/10 14: 14: 14: 14: 14:25Range(36.4C - 36.7C ) (63 - 77 [...] Injectable Flush: 10 mL IntraVenous Flush Every 66Vnhut3. Sodium Chloride 0.9% Injectable Flush PRN: 10 [...] Complete Blood Count + Differential Trending View Hhzycj57-Vke-6990 03:32:00 -Sep-2017 15:37:00White Blood Cell Count7.4 7.0Red Blood Cell Count3.02 L 3.22 LHGB9.4 L 10.0 LHCT29.3 L 32.1 LMCV97 722MCMV13.1 31.2 NOME404 285RDW-CV15.9 H 16.0 HNeutrophil %69.7 69.0Immature Granulocytes %0.3 0.3Lymphocyte %22.0 23.8Monocyte %5.5 6.1Eosinophil %2.0 0.4Basophil %0.5 0.4Neutrophil Count5.16 4.85Lymphocyte Count1.63 1.67Monocyte Count0.41 0.43Eosinophil Count0.15 0.03Basophil Count0.04 0.03 Basic Metabolic Panel Trending View Zcthtn69-Kck-1662 03:32:00 09-Oct-2017 15:37:00Glucose, Twfgn256 H 29EP501 135 LK3.5 4.7ZP734 99Bicarbonate, Serum27 27Anion Gap, Serum10 75HEH37 27 HCREAT1.14 H 1.73 HGFR-Non Iscoejhk96 A 28 AGFR- Gssjenvi90 A 34 ACalcium, Serum8.2 L 9.5 Lactate, Level Trending View Iewgvk14-Doa-7222 17:49:00 09-Oct-2017 15:37:00Lactate, Level0.6 2.2 H Urinalysis 09-Oct-2017 17:44:00 ResultValueColor, Urine YELLOW Reference Range: STRAW,YELLOWAppearance, Urine HAZYSpecific Sulphur, Urine 1.009pH, Urine 5.0Protein, Urine NEGATIVEGlucose, Urine [...] Last Updated: 10-Oct-2017 21:36 by Clif Eid) [facility] Consult-Surgeryon 10-10-2017 Consult-Surgery Service:Service: Leonora arianna Consult:Consult requested by (Attending Name): Cadenason: COLITIS / ABDOMINAL PAIN History of Present [...] bowel obstruction (disorder):Acute bowel obstruction: Onset Date: 19-Dkv-8333Cmozk bowel obstruction:Acute bowel obstruction:Generalized abdominal pain (finding): [...] Confusion? Restoril: Confusion Objective: Objective Information: T OBNOTtX0Zgflg88.73751219/739 5%Date/Time10/10 7: 7: 7: 7: 7:17Range(36.5C - [...] Updated: 11-Oct-2017 08:19 by Manny Arana) Normal [facility] History and Physicalon 10-10 History and Physical [...] hypokalemia,hypomagnesemia and colitis was admitted from the [facility] emergency room due tocolitis. Patient has had multiple abdominal surgeries in the past. She wasrecently discharged from the hospital on 09/01/17 and then a week later formanagement of small bowel obstruction and AMS. Treatment course in the ED included starting IV fluids, Cipro, Flagyl and oralVanco.stool for c diff +.Sodium 135, K 4.1, Bun/Creat 27/1.73Access started by PICC STONE PLANER in ED Past medical history: As stated above. Past surgical history: Multiple abdominal surgeries Social history: Patient never smoked. She is retired. No illicit drug use.She is and has one child. Family history significant for diabetes Admitted to [facility] med/surg with consults to surgery and ID [...] oral tablet: 1 tab(s) orally once a ixnB-E-Iz-F-SatiZANidine 2 mg oral tablet: 1 tab(s) orally [...] and are negative Objective: Objective Information: T JVUJHbC4Celrn78.15655664/739 5%Date/Time10/10 7: 7: 7: 7: 7:17Range(36.5C - 36.7C ) (63 - 77 ) (16 - 18 ) (69 - 170 )/ (38 - 80 ) (91%- 95% ) Weights8 21:07: Weight in kg (Weight (kg)) 41.68/ 21:07: Weight in lbs ((lbs)) 91.78/31 21:07: BMI (kg/m2) (BMI (kg/m2)) 17.337 Physical [...] Injectable Flush: 10 mL IntraVenous Flush Every 26Isnxk75. Vancomycin Oral Liquid: 250 mg Oral Every 6 Hours PRN Medications ---- 1. Acetaminophen: 650 mg Oral Every 4 Hours2. Heparin Flush 10 unit/ mL PF Injectable: 5 mL IntraVenous Flush Every 16Zdaft3. Heparin Flush 10 unit/ mL PF Injectable [...] Complete Blood Count + Differential Trending View Iqjifr55-Jpb-8276 03:32:00 09-Oct-2017 15:37:00 05-Oct-2017 15:23:00White Blood Cell Count7.4 7.0 6.9Red Blood Cell Count3.02 L 3.22 L 3.58 LHGB9.4 L 10.0 L 11.0 LHCT29.3 L 32.1 L 35.7 LMCV97 100 069NIFD54.1 31.2 L 30.8 ECJD022 285 397RDW-CV15.9 H 16.0 H 16.2 HNeutrophil %69.7 69.0 54.6Immature Granulocytes %0.3 0.3 0.3Lymphocyte %22.0 23.8 35.8Monocyte %5.5 6.1 7.0Eosinophil %2.0 0.4 1.3Basophil %0.5 0.4 1.0Neutrophil Count5.16 4.85 3.75Lymphocyte Count1.63 1.67 2.46Monocyte Count0.41 0.43 0.48Eosinophil Count0.15 0.03 0.09Basophil Count0.04 0.03 0.07 Basic Metabolic Panel Trending View Xpvwdo88-Yzg-3759 03:32:00 09-Oct-2017 15:37:00Glucose, Ckdee793 H 22PI268 135 LK3.5 4.9FP821 99Bicarbonate, Serum27 27Anion Gap, Serum10 33JLB49 27 HCREAT1.14 H 1.73 HGFR-Non Lztztcla33 A 28 AGFR- Zcwbikhy81 A 34 ACalcium, Serum8.2 L 9.5 Lactate, Level Trending View Mgmowi68-Coq-3692 17:49:00 09-Oct-2017 15:37:00Lactate, Level0.6 2.2 H Urinalysis 09-Oct-2017 17:44:00 ResultValueColor, Urine YELLOW Reference Range: STRAW,YELLOWAppearance, Urine HAZYSpecific Sulphur, Urine 1.009pH, Urine 5.0Protein, Urine NEGATIVEGlucose, Urine [...] PICC line inserted in ED by PICC CONTROL CABINET ASSEMBLER Anxiety, depression- continue Wellbutrin, Sertraline Insomnia- continue to hold Trazadone Gerd- continue PPI Neuropathy pain- hold Tizandine- continue Neurotin for now Urinary frequency, continue home medication DVT Ambulation, Lovenox held due to anemia Disposition: [facility] med/surg. Home soon. Signatures/Attestation/Certi fication:Comments/ Additional FindingsPatient seen personally by me in collaboration with STONE PLANER. Agree with POC asdocumented above. Attending Provider [...] within 96 hours after admission to the [facility]. Electronic Signatures:Aria Gandhi) (Signed 10-Oct-2017 13:46)Authored: Signatures/Attestation/Certi ficationCo-Signer: History of Present Illness, Comorbidities, Allergies, MedicationsPrior to Admission, Review of Systems, Objective, Assessment and Plan,Signatures/Attestation/ CertificationAlex Mayer (CHILD DAY CARE TEACHER-CONTROL CABINET ASSEMBLER) (Signed 10-Oct-2017 10:21)Authored: History of Present Illness, Comorbidities, Allergies, MedicationsPrior to Admission, Review of Systems, Objective, Assessment and Plan,Signatures/Attestation/ Certification Last Updated: 10-Oct-2017 13:46 by Aria Gandhi) Normal [facility] ALCOHOLon 10-09-2017 Ethanol mass conc mg/dL Normal [facility] Comment on above: Result Comment: FOR MEDICAL USE ONLY..REF VALUES <10 Performed By: #### L IPID ####[facility] [place] [address] AMYLASEon 10-09-2017 Amylase enzyme act/vol 58 U/L Normal 29 - 103 [facility] Comment on above: Performed By: #### L IPID ####[facility] [place] [address] Admission Risk Screen - Adul ton 10-09-2017 [...] DNR-CC Availabilityplaced in chart? DNR-CC Placed on Cpphb83-Hsa-9171 Falls Screen:Type of AssessmentadmissionModerate Risk Factorspatient care [...] Learning Preferencesindividual instruction? Cultural Considerationsnone? Developmental Considerationsnone? Islam Considerationsnone Learning Assessment (Other Learner):? Other learner [...] Spiritual Screen:? Are there any cultural, spiritual, buddhism practices/values/needs that areimportant for us to know?no? Do you want a visit/item from Pastoral Care?no? Would you like your Rolfer/Hand Winder notified?no CAGE:Is this an injured patient at a Trauma Center ([facility] / [place]): no Vaccinations:Vaccination - Influenza Vaccination Screen:? Is [...] Last Updated: 11-Oct-2017 09:08 by Gladys Jordan (RN) References:1. Data Referenced From "Triage - ED" 10/09/2017 1:22 PM Normal [facility] BASIC METABOLIC PANELon 08-3 Anion gap 3 molar conc 13 mmol/L Normal 10 - 20 [facility] Comment on above: Performed By: #### L IPID ####[facility] [place] [address] Calcium mass conc 9.5 mg/dL Normal 8.6 - 10.3 [facility] Comment on above: Performed By: #### L IPID ####[facility] [place] [address] Chloride molar conc 99 mmol/L Normal 98 - 107 [facility] Comment on above: Performed By: #### L IPID ####[address] [place] [address] Creatinine mass conc 1.73 mg/dL High 0.50 - 1.05 [facility] Comment on above: Performed By: #### L IPID ####[address] [place] [address] GFR- AM. 34 mL/min/1.73m2 Abnormal >60 [facility] Comment on above: Result Comment: CALC ULATIONS OF ESTIMATED GFR ARE PERFORMED USING THE MDRD STUDY EQUATION FOR THE IDMS-TRACEABLE CREATININE METHODS. CLIN CHEM 2007;53:766-72 Performed By: #### L IPID ####[address] [place] [address] GFR-NON AM. 28 mL/min/1.73m2 Abnormal >60 [facility] Comment on above: Performed By: #### L IPID ####[address] [place] [address] Glucose mass conc 85 mg/dL Normal 74 - 99 [facility] Comment on above: Performed By: #### L IPID ####[address] [place] [address] HCO3 molar conc (Bld) 27 mmol/L Normal 21 - 32 [facility] Comment on above: Performed By: #### L IPID ####[address] [place] [address] Potassium molar conc 4.1 mmol/L Normal 3.5 - 5.3 [facility] Comment on above: Performed By: #### L IPID ####[address] [place] [address] Sodium molar conc 135 mmol/L Low 136 - 145 [facility] Comment on above: Performed By: #### L IPID ####[address] [place] [address] Urea nitrogen mass conc 27 mg/dL High 6 - 23 [facility] Comment on above: Performed By: #### L IPID ####[address] [place] [address] BLOOD CULTURE, BACTERIALon 0 10-09-2017 BLOOD CULTURE, BACTERIAL PATIENT: KATHERINE JUDGE LOCATION: [address]#: [id number] : [birth year] AGE: SEX: F ORDERED BY: LOTUS VANCE: Blood COLLECTED: 10/09/17 15:37ANTIBIOTICS AT ESDRAS.: RECEIVED : 10/09/17 22:30SITE: PERIPHERAL R E S U L T S BLOOD CULTURE, BACTERIAL FINAL 10/14/17 23:42 No Growth at 1 days No Growth at 2 days No Growth at 3 days No Growth at 4 days NO GROWTH - FINAL REPORT Normal [facility] Comment on above: Performed By: #### V TDOH ####[facility] [place] [place] [address] BLOOD CULTURE, BACTERIAL TEST BLOOD CULTURE, BACTERIAL WAS CANCELLED, 10/16/2017 16:10 DUPLICATE ORDER.PATIENT: KATHERINE JUDGE LOCATION: [address]#: [id number] : [birth year] AGE: SEX: F ORDERED BY: LOTUS VANCE: Blood COLLECTED: 10/09/17 15:30ANTIBIOTICS AT ESDRAS.: RECEIVED : SITE: PERIPHERAL R E S U L T S BLOOD CULTURE, BACTERIAL CANCELLED 10/16/17 16:10 Normal [facility] Comment on above: Performed By: #### V TDOH ####[facility] [place] [address] CBC AND DIFFERENTIALon 10-09 % AUTOMATED IMMATURE GRAN 0.3 % Normal 0.0 - 0.9 [facility] Comment on above: Result Comment: Perc ent differential counts (%) should be interpreted in the context of the absolute cell counts (cells/L). Performed By: #### L IPID ####[facility] [place] [address] % NEUTROPHIL 69.0 % Normal 40.0 - 80.0 [facility] Comment on above: Performed By: #### L IPID ####[facility] [place] [address] Basophils/100 WBC Auto (Bld) 0.4 % Normal 0.0 - 2.0 [facility] Comment on above: Performed By: #### L IPID ####[address] [place] [address] Basophils/100 WBC Auto (Bld) 0.03 x10E9/L Normal 0.00 - 0.10 [facility] Comment on above: Performed By: #### L IPID ####[address] [address] Eosinophils Auto #/vol (Bld) 0.03 10*3/uL Normal 0.00 - 0.40 [facility] Comment on above: Performed By: #### L IPID ####[address] [address] Eosinophils/100 WBC Auto (Bld) 0.4 % Normal 0.0 - 6.0 [facility] Comment on above: Performed By: #### L IPID ####[address] [address] Erythrocyte distribution width Auto Ratio (RBC) 16.0 % High 11.5 - 14.5 [facility] Comment on above: Performed By: #### L IPID ####[address] [address] Hematocrit Auto Volume Fraction (Bld) 32.1 % Low 36.0 - 46.0 [facility] Comment on above: Performed By: #### L IPID ####[address] [address] Hemoglobin mass conc (Bld) 10.0 g/dL Low 12.0 - 16.0 [facility] Comment on above: Performed By: #### L IPID ####[address] [address] Lymphocytes Auto #/vol (Bld) 1.67 10*3/uL Normal 0.80 - 3.00 [facility] Comment on above: Performed By: #### L IPID ####[address] [address] Lymphocytes/100 WBC Auto (Bld) 23.8 % Normal 13.0 - 44.0 [facility] Comment on above: Performed By: #### L IPID ####[address] [address] MCHC Auto mass conc (RBC) 31.2 g/dL Low 32.0 - 36.0 [facility] Comment on above: Performed By: #### L IPID ####[address] [place] [address] MCV Auto Entitic volume (RBC) 100 fL Normal 80 - 100 [facility] Comment on above: Performed By: #### L IPID ####[address] [address] Monocytes Auto #/vol (Bld) 0.43 10*3/uL Normal 0.05 - 0.80 [facility] Comment on above: Performed By: #### L IPID ####[address] [address] Monocytes/100 WBC Auto (Bld) 6.1 % Normal 2.0 - 10.0 [facility] Comment on above: Performed By: #### L IPID ####[address] [address] Neutrophils Auto #/vol (Bld) 4.85 10*3/uL Normal 1.60 - 5.50 [facility] Comment on above: Performed By: #### L IPID ####[address] [address] Platelets Auto #/vol (Bld) 285 10*3/uL Normal 150 - 450 [facility] Comment on above: Performed By: #### L IPID ####[address] [address] RBC Auto #/vol (Bld) 3.22 x10E12/L Low 4.00 - 5.20 [facility] Comment on above: Performed By: #### L IPID ####[address] [address] WBC Auto #/vol (Bld) 7.0 10*3/uL Normal 4.4 - 11.3 [facility] Comment on above: Performed By: #### L IPID ####[address] [address] CHEST 1 VIEWon 10-09-2017 CHEST 1 VIEW [...] rib fractures.Electronically signed by: THANH COLLADO MD [facility] CT ABDOMEN AND PELVIS WO CON TRASTon [...] L3 as well as severe compression of W28hxtyusbjx bodies noted. Degenerative disc space narrowing of [...] signed by: LEIGH ANN VALLADARES MD Normal [facility] HEPATIC FUNCTION PANELon Albumin mass conc 3.1 g/dL Low 3.4 - 5.0 [facility] Comment on above: Performed By: #### L IPID ####[address] [address] ALP enzyme act/vol 67 U/L Normal 33 - 136 [facility] Comment on above: Performed By: #### L IPID ####[address] [address] ALT enzyme act/vol 9 U/L Normal 7 - 45 [facility] Comment on above: Result Comment: Daniel ents treated with Sulfasalazine may generate falsely decreased results for ALT. Performed By: #### L IPID ####[address] [address] AST enzyme act/vol 19 U/L Normal 9 - 39 [facility] Comment on above: Performed By: #### L IPID ####[address] [address] Bilirubin mass conc 0.4 mg/dL Normal 0.0 - 1.2 [facility] Comment on above: Performed By: #### L IPID ####[address] [address] Bilirubin.direct mass conc 0.1 mg/dL Normal 0.0 - 0.3 [facility] Comment on above: Performed By: #### L IPID ####[address] [address] Protein mass conc 6.4 g/dL Normal 6.4 - 8.2 [facility] Comment on above: Performed By: #### L IPID ####[address] [address] LACTATEon 10-09-2017 Lactate molar conc 0.6 mmol/L Normal 0.4 - 2.0 [facility] Comment on above: Result Comment: Hali puncture immediately after or during the administration of Metamizole may lead to falsely low results. Testing should be performed immediately prior to Metamizole dosing. Performed By: #### L IPID ####[address] [address] Lactate molar conc 2.2 mmol/L High 0.4 - 2.0 [facility] Comment on above: Result Comment: Hali puncture immediately after or during the administration of Metamizole may lead to falsely low results. Testing should be performed immediately prior to Metamizole dosing. Performed By: #### L IPID ####[address] [place] [address] LIPASEon 10-09-2017 Lipase enzyme act/vol 50 U/L Normal 9 - 82 [facility] Comment on above: Result Comment: Hali puncture immediately after or during the administration of Metamizole may lead to falsely low results. Testing should be performed immediately prior to Metamizole dosing. Performed By: #### L IPID ####[address] [place] [address] OCCULT BLOOD TEST,STOOLon OCCULT BLOOD,STOOL Positive Abnormal Negative [facility] Comment on above: Performed By: #### L IPID ####[address] [place] [address] PT/INRon 10-09-2017 INR Coag RelTime (PPP) 1.1 {INR} Normal 0.9 - 1.1 [facility] Comment on above: Performed By: #### L IPID ####[address] [place] [address] Prothrombin time (PT) Coag time (PPP) 11.5 s Normal 9.8 - 12.7 [facility] Comment on above: Performed By: #### L IPID ####[address] [address] Patient Profile - Adult v2on 10-09-2017 Protein mass conc Profile:Initial Info :How to be AddressedAliceSpoken Language PreferredEnglish (1)Source of InformationpatientAre you currently using the Personal Electronic Health Record or [facility] CENTERCAREnoAre you interested in learning more about [facility] for the management of yourhealthdeclinedStated Reason for Admissiondizziness weakness low BPPrimary Contact Name and [phone] brother Raul VelozLimitations on Visitors/Phone CallsnoneTemporary Family Living Arrangements (While Hospitalized)none neededArrived Fromemergency departmentWas Admitted To in Past 90 [facility] nursing facilityEmployment StatusdisabledCurrent or Previous ServicenonePatient [...] Last Updated: 09-Oct-2017 21:10 by Lien Bobo (RN) References:1. Data Referenced From Patient Profile - Adult v2 09/05/2017 6:30 AM Normal [facility] Provider Note - ED Care Camejo sitionon 10-09-2017 Protein mass conc ED Care [...] Updated: 09-Oct-2017 19:35 by Spencer Hardy) Normal [facility] Provider Note - ED v2on 08- Protein mass conc Provider Note - ED v 2:Chart Review:ED NOTESED NOTES: Patient states she was hospitalized due to GI tract required resection of thebowel and subsequently went to detention for rehabilitation, after dischargefrom the detention rehabilitation treatment patient was at home was [...] oral tabletInstructions: 1 tab(s) orally once a vbtA-C-Pc-F-Sa Drug Name: tiZANidine 2 mg oral tabletInstructions: [...] difficile toxin (C-Diff) Additional Notes:came with ( [facility]) Status:Active Description:Methicillin-Resi stant Staph Aureus (MRSA) Additional Notes:sputum Status:Active Description:Clostridium difficile toxin (C-Diff) Status:Active Other Description:Narcotic Use Status:Active Description:Family spokesperson Additional Notes: CARLOS [phone] BROTHER RYLAND [phone] Status:Active Past Medical History Description:colitis Status:Active Description:mitral valve regurgitation Status:Active Description:gi bleed Status:Active Description:Hypertension (HTN) Status:Active Description:arthritis Status:Active Description:herniated disc lumbar area Status:Active Description: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 Description:depression Status:Active Description:anxiety Status:Active Description:osteoporosis Status:Active Description:diverticulitis Status:Active Description:umbilical hernia Status:Active Description:UTI Status:Active Description:GERD Status:Active Description:CAD Status:Active Description:Non ST elevation CA Status:Active Description:Coronary atherosclerosis Status:Active Description:Sepsis Status:Active Description:Venous [...] SIGNS VITAL SIGNS: T PRBP SpO2O2(LPM) %FiO2 [id number] 13:22:[id number]/38 93 room air, no respiratorysupport EKG INTERPRETATION:EKG Date/Time: 09-Oct-2017 12:59Rate: 71Prior EKG Status: the EKG is unchanged from prior EKGComments: Normal sinus rhythm rate of 71. Right bundle-branch block. Leftposterior fascicular block. Bifascicular block. Artifact limitinginterpretation data. When compared with a prior EKG of July 26 2017 nosignificant interval change noted. Abnormal EKG. This EKG is read by P CLINICAL IMPRESSIONDiagnosis/Annotati on: colitis Dispostion: hospitalized Condition on Disposition: stable ATTESTATION CRITICAL CARE TIMEIs this a critically ill patient?: no Electronic Signatures:Maria A Vance) (Signed 09-Oct-2017 13:56)Authored: Provider Note - ED [id number] Hardy) (Signed 09-Oct-2017 19:42)Authored: Provider Note - ED v2 Last Updated: 09-Oct-2017 19:42 by Spencer Hardy) References:1. Data Referenced From "Triage - ED" 10/09/2017 1:22 PM Normal [facility] TROPONIN Ion 10-09-2017 Troponin I.cardiac mass conc ng/mL Normal 0.00 - 0.03 [facility] Comment on above: [...] testing is performed using differenttesting methodology at [facility] than [facility]. Direct result comparisons should onlybe made within the same method. Performed By: #### L IPID ####[facility] [place] [address] Triage - EDon 10-09-2017 Triage - ED [...] Medical History:? Past Medical History Reviewedyes Electronic Signatures:Neila Pierre (CINTHYA) (Signed 09-Oct-2017 13:24)Authored: Triage, Past Medical History Last Updated: 09-Oct-2017 13:24 by Nelia Pierre) Normal [facility] URINALYSISon 10-09-2017 APPEARANCE HAZY Normal CLEAR [facility] Comment on above: Performed By: #### L IPID ####[facility] [place] [address] BILIRUBIN Negative Normal NEGATIVE [facility] Comment on above: Performed By: #### L IPID ####[facility] [facility] [place] [address] BLOOD Negative Normal NEGATIVE [facility] Comment on above: Performed By: #### L IPID ####[facility] [facility] [place] [address] COLOR YELLOW Normal STRAW,YELL OW [facility] Comment on above: Performed By: #### L IPID ####[address] [facility] [place] [address] GLUCOSE Negative Normal NEGATIVE [facility] Comment on above: Performed By: #### L IPID ####[facility] [facility] [place] [address] KETONES Negative Normal NEGATIVE [facility] Comment on above: Performed By: #### L IPID ####[address] [facility] [place] [address] LEUKOCYTE ESTERASE Negative Normal NEGATIVE [facility] Comment on above: Performed By: #### L IPID ####[address] [facility] [place] [address] NITRITE Negative Normal NEGATIVE [facility] Comment on above: Performed By: #### L IPID ####[address] [place] [address] pH 5.0 Normal 5.0 - 8.0 [facility] Comment on above: Performed By: #### L IPID ####[facility] [facility] [place] [address] Protein mass conc Negative Normal NEGATIVE [facility] Comment on above: Performed By: #### L IPID ####[address] [facility] [place] [address] SPECIFIC GRAVITY 1.009 Normal 1.005 - 1.035 [facility] Comment on above: Performed By: #### L IPID ####[address] [place] [address] UROBILINOGEN <2.0 Normal 0.0 - 1.9 [facility] Comment on above: Performed By: #### L IPID ####[address] [place] [address] URINE CULTURE,BACTERIALon URINE CULTURE,BACTERIAL PATIENT: KATHERINE JUDGE LOCATION: [address]#: [id number] : [birth year] AGE: SEX: F ORDERED BY: LOTUS VANCE: URINE COLLECTED: 10/09/17 17:44ANTIBIOTICS AT ESDRAS.: RECEIVED : 10/10/17 09:59SITE: Straight Cath R E S U L T S URINE CULTURE,BACTERIAL FINAL 10/11/17 09:09 NO GROWTH Normal [facility] Comment on above: Performed By: #### V TDOH ####[facility] [place] [address] CBC AND DIFFERENTIALon 10-05 % AUTOMATED IMMATURE GRAN 0.3 % Normal 0.0 - 0.9 [facility] Comment on above: Result Comment: Perc ent differential counts (%) should be interpreted in the context of the absolute cell counts (cells/L). Performed By: #### L IPID ####[address] [address] % NEUTROPHIL 54.6 % Normal 40.0 - 80.0 [facility] Comment on above: Performed By: #### L IPID ####[address] [address] Basophils/100 WBC Auto (Bld) 1.0 % Normal 0.0 - 2.0 [facility] Comment on above: Performed By: #### L IPID ####[address] [address] Basophils/100 WBC Auto (Bld) 0.07 x10E9/L Normal 0.00 - 0.10 [facility] Comment on above: Performed By: #### L IPID ####[address] [address] Eosinophils Auto #/vol (Bld) 0.09 10*3/uL Normal 0.00 - 0.40 [facility] Comment on above: Performed By: #### L IPID ####[address] [address] Eosinophils/100 WBC Auto (Bld) 1.3 % Normal 0.0 - 6.0 [facility] Comment on above: Performed By: #### L IPID ####[address] [address] Erythrocyte distribution width Auto Ratio (RBC) 16.2 % High 11.5 - 14.5 [facility] Comment on above: Performed By: #### L IPID ####[address] [address] Hematocrit Auto Volume Fraction (Bld) 35.7 % Low 36.0 - 46.0 [facility] Comment on above: Performed By: #### L IPID ####[address] [address] Hemoglobin mass conc (Bld) 11.0 g/dL Low 12.0 - 16.0 [facility] Comment on above: Performed By: #### L IPID ####[address] [address] Lymphocytes Auto #/vol (Bld) 2.46 10*3/uL Normal 0.80 - 3.00 [facility] Comment on above: Performed By: #### L IPID ####[address] [address] Lymphocytes/100 WBC Auto (Bld) 35.8 % Normal 13.0 - 44.0 [facility] Comment on above: Performed By: #### L IPID ####[address] [address] MCHC Auto mass conc (RBC) 30.8 g/dL Low 32.0 - 36.0 [facility] Comment on above: Performed By: #### L IPID ####[address] [address] MCV Auto Entitic volume (RBC) 100 fL Normal 80 - 100 [facility] Comment on above: Performed By: #### L IPID ####[address] [address] Monocytes Auto #/vol (Bld) 0.48 10*3/uL Normal 0.05 - 0.80 [facility] Comment on above: Performed By: #### L IPID ####[address] [place] [address] Monocytes/100 WBC Auto (Bld) 7.0 % Normal 2.0 - 10.0 [facility] Comment on above: Performed By: #### L IPID ####[address] [place] [address] Neutrophils Auto #/vol (Bld) 3.75 10*3/uL Normal 1.60 - 5.50 [facility] Comment on above: Performed By: #### L IPID ####[address] [address] Platelets Auto #/vol (Bld) 397 10*3/uL Normal 150 - 450 [facility] Comment on above: Performed By: #### L IPID ####[address] [address] RBC Auto #/vol (Bld) 3.58 x10E12/L Low 4.00 - 5.20 [facility] Comment on above: Performed By: #### L IPID ####[address] [address] WBC Auto #/vol (Bld) 6.9 10*3/uL Normal 4.4 - 11.3 [facility] Comment on above: Performed By: #### L IPID ####[address] [address] COMPREHENSIVE PANELon 2017 Albumin mass conc 3.6 g/dL Normal 3.4 - 5.0 [facility] Comment on above: Performed By: #### L IPID ####[address] [address] ALP enzyme act/vol 73 U/L Normal 33 - 136 [facility] Comment on above: Performed By: #### L IPID ####[address] [address] ALT enzyme act/vol 8 U/L Normal 7 - 45 [facility] Comment on above: Result Comment: Daniel ents treated with Sulfasalazine may generate falsely decreased results for ALT. Performed By: #### L IPID ####[address] [address] Anion gap 3 molar conc 16 mmol/L Normal 10 - 20 [facility] Comment on above: Performed By: #### L IPID ####[facility] [place] [address] AST enzyme act/vol 16 U/L Normal 9 - 39 [facility] Comment on above: Performed By: #### L IPID ####[facility] [place] [address] Bilirubin mass conc 0.4 mg/dL Normal 0.0 - 1.2 [facility] Comment on above: Performed By: #### L IPID ####[address] [place] [address] Calcium mass conc 10.2 mg/dL Normal 8.6 - 10.3 [facility] Comment on above: Performed By: #### L IPID ####[address] [place] [address] Chloride molar conc 101 mmol/L Normal 98 - 107 [facility] Comment on above: Performed By: #### L IPID ####[address] [place] [address] Creatinine mass conc 1.36 mg/dL High 0.50 - 1.05 [facility] Comment on above: Performed By: #### L IPID ####[address] [place] [address] GFR- AM. 45 mL/min/1.73m2 Abnormal >60 [facility] Comment on above: Result Comment: CALC ULATIONS OF ESTIMATED GFR ARE PERFORMED USING THE MDRD STUDY EQUATION FOR THE IDMS-TRACEABLE CREATININE METHODS. CLIN CHEM 2007;53:766-72 Performed By: #### L IPID ####[address] [place] [address] GFR-NON AM. 37 mL/min/1.73m2 Abnormal >60 [facility] Comment on above: Performed By: #### L IPID ####[address] [place] [address] Glucose mass conc 89 mg/dL Normal 74 - 99 [facility] Comment on above: Performed By: #### L IPID ####[facility] [place] [address] HCO3 molar conc (Bld) 25 mmol/L Normal 21 - 32 [facility] Comment on above: Performed By: #### L IPID ####[facility] [place] [address] Potassium molar conc 5.8 mmol/L High 3.5 - 5.3 [facility] Comment on above: Performed By: #### L IPID ####[facility] [place] [address] Protein mass conc 7.5 g/dL Normal 6.4 - 8.2 [facility] Comment on above: Performed By: #### L IPID ####[address] [place] [address] Sodium molar conc 136 mmol/L Normal 136 - 145 [facility] Comment on above: Performed By: #### L IPID ####[address] [place] [address] Urea nitrogen mass conc 26 mg/dL High 6 - 23 [facility] Comment on above: Performed By: #### L IPID ####[address] [place] [address] MAGNESIUMon 10-05-2017 Magnesium mass conc 2.24 mg/dL Normal 1.60 - 2.40 [facility] Comment on above: Performed By: #### L IPID ####[address] [address] VIT B1-THIAMINE WHOLE BLDon 09-11-2017 VIT B1-THIAMINE WHOLE BLD 133 nmol/L Normal 70-180 [facility] Comment on above: Result Comment: INTE RPRETIVE INFORMATION: Vitamin B1, Whole BloodThis assay measures the concentration of thiamine diphosphate(TDP), the primary active form of vitamin B1. Approximately 90percent of vitamin B1 present in whole blood is TDP. Thiamine andthiamine monophosphate, which comprise the remaining 10 percent,are not measured.Test developed and characteristics determined by [facility]. See Compliance Statement B: [email or web address] by [employer],[address] [place] [id number] hjn.[employer], Noble Hernandez MD - Lab. Director Performed By: #### V TB1W ####[address] [place] [address] Daily Progress Note-Medicine on 09-08-2017 Protein mass conc Service: Medicine Rick bjective Data:KATHERINE JUDGE is a 82 year old Female who is Hospital Day # 4. Objective Data: Objective Information:T [id number]% Date/Time09/08 10: 10: 10: 10: 10:22Range(36.5C - [...] Urine STRAW Reference Range: STRAW,YELLOWAppearance, Urine CLEARSpecific Sulphur, Urine 1.005pH, Urine 6.0Protein, Urine NEGATIVEGlucose, Urine [...] hypokalemia,hypomagnesemia and colitis was admitted from the [facility] emergency room due toaltered mental status. Acute encephalopathy-clearedMRI shows multiple puntate lesion and cortical contusionseen by neurology, likely result from fall, no concern for stroke Status post unwitnessed fall-Periorbital contusion-EKG showed normal sinus rhythm with RBBB and some ST changes in the inferiorleads.-negative orthostatrics Hypokalemia: resolved CODE STATUS: DO NOT RESUSCITATE [facility] records. Patient is back to baseline neurologically, [facility] Nutrition Diagnosis:? Nutrition DiagnosisAgree with dietitian?s [...] Updated: 08-Sep-2017 12:58 by Roslyn Allan) Normal [facility] Consulton 09-07-2017 Consult Service:Consult:Trish on: fall, possible [...] recollection offall. does have ecchymotic area left [facility].Previous records reviewed, BP was elevated 2 weeks [...] at home, independent, son and dtr near byrecent SNF Incomplete ROS: patient's impaired mental status Constitutional: [...] Confusion? Restoril: Confusion Objective: Objective Information: T [id number]/709 4%Date/Time09/07 19: 19: 19: 19: 19:58Range(36.5C - 37C [...] Appropriate mood and behaviorSkin: Warm and dry, [place], Ecchymotic bruising left [facility]. Medications: Medications: Continuous Medications ---- 1. Sodium [...] laboratory results: Basic Metabolic Panel Trending View [id number]-[id number] 05:45:00 05-Sep-2017 08:30:00Glucose, Mzaqo546 H 111 CID128 138K3.8 3.2 QBU192 104Bicarbonate, Serum27 26Anion Gap, Serum12 11BUN7 80PTHMQ0.57 0.75GFR-Non >60 >60GFR->60 >60Calcium, Serum8.7 8.9 Vitamin B12, Serum 06-Sep-2017 05:45:00 ResultValueVitamin B12, Serum 770 Thyroid Stimulating Hormone, Serum 06-Sep-2017 05:45:00 ResultValueThyroid Stimulating Hormone, Serum 2.11 Vitamin D (25-Hydroxy), Level 06-Sep-2017 05:45:00 ResultValueVitamin D (25-Hydroxy), Level 19 A Ammonia, Plasma 06-Sep-2017 05:45:00 ResultValueAmmonia, Plasma 19 Folate, Serum 06-Sep-2017 05:45:00 ResultValueFolate, Serum > 24.0 Troponin I, Serum Trending View [id number]-Pbh-5667 11:40:00 05-Sep-2017 08:30:00 05-Sep-2017 01:49:00Troponin I, Serum0.02 0.02 0.02 Complete Blood Count 05-Sep-2017 08:30:00 ResultValueWhite Blood Cell Count 10.6Red Blood Cell Count 2.72 LHGB 8.5 LHCT 27.1 LMCV 100MCHC 31.4 LPLT 359RDW-CV 15.5 H Lactate, Level 05-Sep-2017 01:49:00 ResultValueLactate, Level 1.0 Urinalysis 05-Sep-2017 01:37:00 ResultValueColor, Urine STRAW Reference Range: STRAW,YELLOWAppearance, Urine CLEARSpecific Sulphur, Urine 1.005pH, Urine 6.0Protein, Urine NEGATIVEGlucose, Urine [...] MRA neck. The study was interpreted at [facility]. MRA Head without Contrast [Sep 06 [...] 22.2 cm2LA Area A2C: 19.3 cm2LA [place] A4C: 5.9 cmLA [place] A2C: 5.4 cmLA Volume Index: 40.5 ml/m2RA VOLUME BY A/L METHOD: Normal Ranges:RA Vol A4C: 17.8 ml (8.3-19.5ml)RA Vol Index A4C: 11.5 ml/m2RA Area A4C: 9.6 cm2RA [place] A4C: 4.4 cmM-MODE MEASUREMENTS: Normal Ranges:Ao Root: [...] standing today.Cont. Imdur, Plavix, and resume PO o6gyuwlvi.Monitor Orthostatic vitals another 24 hrs.Continue telemetry Electronic Signatures:Ventura Thacker) (Signed 07-Sep-2017 21:58)Authored: Service, History of Present Illness, Review Family/Social Historyand ROS, Allergies, Objective, Assessment/Recommendations,S ignature/Cosignature/Attesta tion Last Updated: 07-Sep-2017 21:58 by Ventura Thacker) Normal [facility] Daily Progress Note-Neurolog yon 09-07-2017 Protein mass conc Service: Neurology Subjective Data:KATHERINE JUDGE is a 82 year old Female who is Hospital Day # 2. Objective Data: Objective Information:T IQQAGjU9Wudzb26.08882911/669 2%Date/Time09/06 21: 18: 21: 18: 21:29Range(36.7C - 37.4C ) (73 - 96 ) (16 - 18 ) (111 - 189 )/ (66 - 104 )(92% - 97% )Highest temp of 37.4 C was recorded at 09/06 12:45 Pain at Rest reported at 09/06 20:35: 4Lamrsudiozd2/29 21:29 P HBQatci65667 / 64 (138 - 162 ) / (64 - 87 )Xqdnjwk49481 / 71 (136 - 146 ) / (68 - 82 )Hlvvlbun050207 / 61 (101 - 124 ) / [...] MRA neck. The study was interpreted at [facility]. MRA Neck without Contrast [Sep 06 [...] MRA neck. The study was interpreted at [facility]. MRA Head without Contrast [Sep 06 [...] MRA neck. The study was interpreted at [facility]. MRI Brain without Contrast [Sep 06 2017 1:06PM] Assessment and Plan:Assessment:Impression: This 82 year old woman appears back to her baseline [facility] Its not clear why she fell, perhaps [...] Updated: 06-Sep-2017 22:21 by Altagracia Nicolas) Normal [facility] Discharge Wxblzxo7gm 07-30-2 018 Protein mass conc Discharge Orders:Ant icipated Discharge Date:? Anticipated Discharge Rdse03-Vtm-2163? Anticipated Discharge Time11:00 Problem List: Additional Dx:? Hypokalemia: Catalog Name: Hypokalemia? Fall: Catalog Name: Unspecified fall, initial encounter? Leukocytosis: Catalog Name: Elevated white blood cell count, unspecified? Encephalopathy: Catalog Name: Encephalopathy, unspecified? Essential hypertension: Catalog Name: Essential (primary) hypertension? CAD (coronary artery disease): Catalog Name: Atherosclerotic heart diseaseof [place] coronary artery without angina pectoris? Hypercalcemia: Catalog [...] Medical HistoryCABG (2 vessel): Past Surgical History, 91-Osy-6127JOF: Past Medical HistoryNon ST elevation CA: Past Medical History, 46-Kwp-0876Dbjxvirk atherosclerosis: Past Medical HistorySepsis: Past Medical HistoryVenous thromboembolism: Past Medical HistoryChronic anemia: Past Medical HistoryNarcotic Use: OtherClostridium difficile toxin (C-Diff): Infection Control, 27-Aug-2012, iv[facility] ( [facility])Congestive Heart Failure (CHF): Past Medical HistoryMethicillin-Resistant Staph Aureus (MRSA): Infection Control, Mar 2012, sputumFamily spokesperson: Other, CARLOS [phone] BROTHERPAUL VELOZ [phone] Information: Contacts, son Ganga [phone] difficile toxin (C-Diff): Infection Control, 08-Jul-2017 Hospital Providers:Provider RoleProvider Name? Magui Love? Brionna Galindo? Benjy Pruitt Activity:activity as tolerated. May shower. Hospital Course (Home Care/Gold Form):Hospital Course:? Hospital Course: include significant abnormal lab -abkv-lvw female with a past medical history of failure to thrive,gastrocutaneous fistula, constipation, ileus, small bowel obstruction,transient ischemic colitis, anemia, protein calorie malnutrition, hypokalemia,hypomagnesemia and colitis was admitted from the [facility] room due toaltered mental status. Acute [...] will monitor Hypokalemia-We will repeat labs DVT mpjdfvbabdj-Gwukoen-nm light of cortical contusion and possible punctate lesions which maybe secondary to injury will d/c CODE STATUS: DO NOT RESUSCITATE [facility] detention records. Patient is back to baseline neurologicallywill continue to monitor Patient had significant encephalopathic changes which resolved spontaneouslywithin 24 hrs. Suspect multifactorial: trauma from fall;probable concussion andMRI showing cortical contusionStable and back to baseline. Provider FINAL REVIEW of Orders:Final Review:? Final Review of Medication Reconciliation and Orders Completedby Physician? Reviewing Joe Llanes MD at 07-Sep-2017 20:40:06 Appointments:Follow-Up Appointment 01:? Physician/Dept/ServiceDr. Hugo Primary Care Physician ? Reason for Referralpost hospitalization ? Scheduled Date/Tkch51-Enu-7606 11:00? [id number] [place] [address]? Phone [phone]? CommentsPlease arrive 10-15 minutes early, bring photo ID, insurance cards,discharge summary, and a list of current medications. Please call the officeif you need to change this appointment. Follow-Up Appointment 02:? Physician/Dept/ServiceDr. Altagracia Nicolas Neurology ? Reason for Referralpost hospitalization ? Scheduled Date/Ryxm54-Frd-7011 11:00? [id number] [place] [address]? Phone [phone]? CommentsPlease arrive 10-15 minutes early, bring photo ID, insurance cards,discharge summary, and a list of current medications. Please call the officeif you need to change this appointment. Gold Form - Nursing Summary:Special Treatments/Procedures (in past 14 days):? Chemotherapyno? Dialysisno? IV Medicationno? Oxygen Therapyno? Transfusionsno? Feverno? Radiationno? Ventilatorno? Tracheostomyno? Suctioningno Nutrition:? Nutritional Statusfeeds self Sensory/Comfort:? Visionadequate? Hearingadequate? Speechclear? Painno Elimination:? Bladdercontinent? Bowelcontinent? Last Bowel Zohjpnrb79-Uce-8012? Toiletingtoilet Safety:? Siderailsno? Restraintsno? Sitterno? Fall Riskprevious falls, weakness Medication/Hygiene/Mobility: ? Medication Administrationassist? Bathingassist? Dressingassist? Bed Mobilityassist? Wheelchairassist? Transfersassist? Ambulationassist Electronic Signatures:Elida Calderón) (Signed 08-Sep-2017 09:01)Authored: Gold Form - Nursing SummaryBrionna Llanes) (Signed 07-Sep-2017 20:40)Authored: Discharge Orders, Hospital Course (Home Care/Gold Form), ProviderFINAL REVIEW of Orders, Appointments, Gold Form - Tree Tapping Laborer Brionna Santacruz (PT ACC REP) (Signed 08-Sep-2017 09:49)Authored: Appointments Last Updated: 08-Sep-2017 09:49 by Brionna Hill (PT ACC REP) Normal [facility] Nutrition Therapy-Assessment on 09-07-2017 Nutrition Therapy-Assessment Assessment Subjective/Objective:Note Type: Assessment Note Authored by: Registered Dietitian NutritionistPager Number: [phone] Nutrition Note:The patient is a 82 year [...] bowel obstruction (disorder):Acute bowel obstruction: Onset Date: 00-Gzv-6887Jgjkclucfyc abdominal pain (finding): Chronic:Fluid overload pulmonary edema:Clostridium difficile infection:Chest pain:Diarrhea: Other Dx/Proc:CHEST PAIN: Description: CHEST PAINUnstable angina/chest pain: Description: Unstable angina/chest painGastrointestinal bleeding: Description: Gastrointestinal bleeding1 Colitis, 2 Abdomen Pain 3 Cholelithiasis: Onset Date: 01-Mss-8059Dzble failure: Description: Heart failurePNEUMONIA:Diabetes mellitus: Description: Diabetes [...] bowel obstruction (disorder):Acute bowel obstruction: Onset Date: 29-Siv-3946Duwicqxmmvx abdominal pain (finding):Acute bowel obstruction:Acute bowel obstruction: Objective Information: T TMAOUoD6Vvcdp61.95440634/799 7%Date/Time09/07 10: 10: 10: 10: 10:58Range(36.5C - 37.4C ) (82 - 99 ) (16 - 19 ) (111 - 171 )/ (66 - 80 ) (92%- 98% )Highest temp of 37.4 C was recorded at 09/06 12:45 Pain at Rest reported at 09/07 9:30: 0 ---- Intake and Output -----Mn/Dy/Year TimeIntakeOutputNetJul 2017 10:00 [id number] 2017 2:00 [id number] The Intake and Output Totals for the last 24 hours are:OxalwxLnhxnuUyh4460qipiu ull Intake Output Enteral - Oral 600 mL IV Fluids 600 mL Height/Weight:Height in feet: 5 feetHeight in inches: 0 inch(es)Height in cm: 152.4 centimeter(s)Weight (kg): 43.8BMI (kg/m2): 18.858 square meterDBW (kg): 45%DBW: 97Weight history/ % weight change: 08/31/17 -- 40.6kg06/18/17 -- 45.9kg, 4.5% weight loss in 3 months; noted but not signfiican03/20/17 -- 46.8kg -- 6.4% weight loss in 6 months; not dbwpdcrgnaa43/13/17 -- 45.9kg07/30/16 -- 49kg -- 10.6% weight [...] 24.0 Nutrition Labs:Special Chemistry: 03-Jul-2017 10:15, Hemoglobin F8OUckrabdgql A1C, Level5.3 Diagnosis of Diabetes-Adults Non-Diabetic: < or = 5.6% Increased risk for developing diabetes: 5.7-6.4% Diagnostic of diabetes: > or = 6.5%. Monitoring of Diabetes Age (y) Therapeutic Goal (%) Adults: >18 <7.0 Pediatrics: 13-18 <7.5 7-12 <8.0 0- 6 7.5-8.5 [place] [employer]. Diabetes Care 33(S1), Feb 2009.Estimated Average Uqxbwnr686Pbydlpbxmpvci: 06-Sep-2017 05:45, Vitamin D (25-Hydroxy), LevelVitamin D (25-Hydroxy), Level19.DEFICIENCY: < 20 NG/MLINSUFFICIENCY: 20-29 NG/MLOPTIMUM LEVEL: 30-80 NG/MLPOSSIBLE TOXICITY: > 80 NG/MLTHIS ASSAY ACCURATELY QUANTIFIES THE SUM OFVITAMIN D3, 25-HYDROXY AND VIT D2,25-HYDROXY. Current Active Medications/PN:Isosorbide Mononitrate Extended Release, Tablet, Extended Release (IMDUR)DOSE = 60 mg Oral Daily, 94-Yde-5245Ptcehhbut Chloride Powder Packet, (K-SHAUN)DOSE = 20 mEq Oral DailyNotes from Pharmacy: Substitution for Potassium Chloride Oral Liquid 20 mEqDaily, 77-Mzi-0520Izhzpzodyx Injectable, (LOPRESSOR)DOSE = 5 mg IntraVenous Push Every 6 HoursClinician Notes: hold for SBP<105 or HR<60, 75-Zbl-6288Sgxarpnxd 5% TransDermal, Film (LIDODERM)DOSE = 1 patch TransDermal Every 24 HoursClinician Notes: to back, 15-Nva-5361Ypcmjboavqszf, Tablet (TYLENOL)DOSE = 650 mg Oral Every 6 Hours, PRN Pain - Mild (1-3), 94-Vda-5324Udotunnfkfs, Tablet (PLAVIX)DOSE = 75 mg Oral Daily, 16-Dep-4815Sgtezdphbcbadny (Vitamin D3), TabletDOSE = 1,000 International Unit(s Oral Daily, 72-Tkj-5748Xphmhg Chloride 0.9% with Potassium CL 20 mEq Premix Fluid, IV Bag Volume =1,000 mL Run at: 75 mL/hr IntraVenous , 06-Sep-2017 Nutrition Orders:Diet May Not Participate in Room Service, NoOrder entered from Admission Screens., 83-Xey-4075Njhz, RegularTexture: Soft, 68-Gem-7714Gunz Nutritional Supplements, RoutineMagic CupFlavor Preference: [place]; [place], 2 Times a DaySpecial Instructions: Please send [...] 50,000 International Unit(s) weekly x 4-6 weeks thenrecsutter [facility] Dietitian Monitoring and Evaluation Plan:Monitoring and Evaluation Plan: po intake and tolerance, fluid intake/adequacy,vitamin/mine ral intake, weight trend, mealtime behavior, labs Electronic Signatures:Mikie May (DEEPA HENRIQUEZ) (Signed 07-Sep-2017 12:59)Authored: Assessment Subjective/Objective, Nutrition Focused PhysicalFindings, Estimated Needs, Nutrition Diagnosis, Nutrition Interventions,Nutrition Goals, Nutrition Recommendations, Dietitian Monitoring and EvaluationPlan Last Updated: 07-Sep-2017 12:59 by Mikie May (DEEPA HENRIQUEZ) Normal [facility] AMMONIAon 09-06-2017 Ammonia mass conc (P) 19 umol/L Normal [facility] Comment on above: Result Comment: .REF ERENCE VALUESDAY 1 to DAY 7 <110DAY 8 to DAY 14 < 90DAY 15 to ADULT 16-53 Performed By: #### A MM ####[facility] REG [id number] [place] [address] BASIC METABOLIC PANELon 08-10 Anion gap 3 molar conc 12 mmol/L Normal 10 - 20 [facility] Comment on above: Performed By: #### B MP ####[facility] REG [id number] [facility] [place] [address] Calcium mass conc 8.7 mg/dL Normal 8.6 - 10.3 [facility] Comment on above: Performed By: #### B MP ####[facility] [id number] [place] [address] Chloride molar conc 104 mmol/L Normal 98 - 107 [facility] Comment on above: Performed By: #### B MP ####[facility] [id number] [facility] [place] [address] Creatinine mass conc 0.57 mg/dL Normal 0.50 - 1.05 [facility] Comment on above: Performed By: #### B MP ####[facility] [id number] [facility] [place] [address] GFR- AM. >60 Normal >60 [facility] Comment on above: Result Comment: CALC ULATIONS OF ESTIMATED GFR ARE PERFORMED USING THE MDRD STUDY EQUATION FOR THE IDMS-TRACEABLE CREATININE METHODS. CLIN CHEM 2007;53:766-72 Performed By: #### B MP ####[facility] [id number] [place] [address] GFR-NON AM. >60 Normal >60 [facility] Comment on above: Performed By: #### B MP ####[facility] [id number] [place] [address] Glucose mass conc 110 mg/dL High 74 - 99 [facility] Comment on above: Performed By: #### B MP ####[facility] [id number] [place] [address] HCO3 molar conc (Bld) 27 mmol/L Normal 21 - 32 [facility] Comment on above: Performed By: #### B MP ####[facility] [id number] [place] [address] Potassium molar conc 3.8 mmol/L Normal 3.5 - 5.3 [facility] Comment on above: Performed By: #### B MP ####[facility] [id number] [place] [address] Sodium molar conc 139 mmol/L Normal 136 - 145 [facility] Comment on above: Performed By: #### B MP ####[facility] [id number] [place] [address] Urea nitrogen mass conc 7 mg/dL Normal 6 - 23 [facility] Comment on above: Performed By: #### B MP ####[facility] [id number] [place] [address] Daily Progress Note-Medicine on 09-06-2017 Protein mass conc Service: Medicine Irck bjective Data:KATHERINE JUDGE is a 82 year old Female who is Hospital Day # 2. Patient is back to baseline neurologically. Objective Data: Objective Information:T MOUTYfK7Nbyjm61.39925602/669 4%Date/Time09/06 12: 12: 12: 12: 12:57Range(36.7C - [...] Urine STRAW Reference Range: STRAW,YELLOWAppearance, Urine CLEARSpecific Sulphur, Urine 1.005pH, Urine 6.0Protein, Urine NEGATIVEGlucose, Urine [...] 20:32NSTEMI (non-ST elevated myocardial infarction): Entered Date: 19-Szr-486063:25UTI (urinary tract infection), bacterial: Entered Date: 27-Dec-2016 [...] bowel obstruction: Onset Date: 11-Feb-2012, Entered Date: 51-Lih-799990:56Generalized abdominal pain (finding): Entered Date: 11-Feb-2012 18:56 [...] ST Elevation Myocardial Infarction (NSTEMI): Entered Date: 21-Oam-433282:29Coronary angioplasty/stent (PCI): Entered Date: 12-Dec-2009 15:30Dyspnea: Entered [...] hypokalemia,hypomagnesemia and colitis was admitted from the [facility] emergency room due toaltered mental status. Acute [...] will monitor Hypokalemia-We will repeat labs DVT ehhcvbwncfr-Nuvojqg-ut light of cortical contusion and possible punctate lesions which maybe secondary to injury will d/c CODE STATUS: DO NOT RESUSCITATE [facility] detention records. Patient is back to baseline neurologicallywill continue to monitor Electronic Signatures:Brionna Llanes) (Signed 06-Sep-2017 16:28)Authored: Service, Subjective Data, Objective Data, Assessment and Plan,Signature/Cosignature/A ttestation Last Updated: 06-Sep-2017 16:28 by Brionna Llanes) Normal [facility] FOLATE, SERUMon 09-06-2017 Folate [Mass/volume] in Serum or Plasma > 24.0 Normal >5.0 [facility] Comment on above: Result Comment: Adniel ents receiving more than 5 mg/day of biotin may have interference in test results. A sample should be taken no sooner than eight hours after previous dose. Contact [phone] for additional information. Performed By: #### F OLA2 ####[id number] [place] [address] NR MRA HEAD W/O Con 09-07-19 18 NR MRA HEAD W/O C Name: KATHERINE JUDGE STUDY:NR MRI BRAIN WO; NR MRA HEAD W/O C; NR MRA NECK WO.C; 09/06/2017 12:00pm INDICATION:Signs/Symptoms: Recent fall, CHI, stroke symptoms- evaluate for acutestroke; ALTERED MENTAL STATUS. Stroke protocol. COMPARISON: CT head from 09/05/2017 [id number]; [id number] ORDERING CLINICIAN:ALTAGRACIA NICOLAS; FLAKO GOODMAN TECHNIQUE:Axial T2, FLAIR, DWI and sagittal and coronal T1 weighted images ofbrain were acquired. T0 axial gradient echo T2 imaging was alsoperformed. Dtyi-ht-awufbz MRA of the head and neck was [...] MRA neck. The study was interpreted at [facility].Electronically signed by: TOLU MARTINEZ MD [facility] NR MRA NECK WO.Con 8 NR MRA NECK WO.C Name: KATHERINE JUDGE STUDY:NR MRI BRAIN WO; NR MRA HEAD W/O C; NR MRA NECK WO.C; 09/06/2017 12:00pm INDICATION:Signs/Symptoms: Recent fall, CHI, stroke symptoms- evaluate for acutestroke; ALTERED MENTAL STATUS. Stroke protocol. COMPARISON: CT head from 09/05/2017 [id number]; [id number] ORDERING CLINICIAN:ALTAGRACIA GOODMAN TECHNIQUE:Axial T2, FLAIR, DWI and sagittal and coronal T1 weighted images ofbrain were acquired. T0 axial gradient echo T2 imaging was alsoperformed. Xjca-gp-xdncou MRA of the head and neck was [...] [facility]. [facility]Electronically signed by: TOLU MARTINEZ MD Normal [facility] NR MRI BRAIN WOon 09-06-2017 NR MRI BRAIN WO Name: KATHERINE JUDGE STUDY:NR MRI BRAIN WO; NR MRA HEAD W/O C; NR MRA NECK WO.C; 09/06/2017 12:00pm INDICATION:Signs/Symptoms: Recent fall, CHI, stroke symptoms- evaluate for acutestroke; ALTERED MENTAL STATUS. Stroke protocol. COMPARISON: CT head from 09/05/2017 [id number]; [id number] ORDERING CLINICIAN:ALTAGRACIA NICOLAS; FLAKO GOODMAN TECHNIQUE:Axial T2, FLAIR, DWI and sagittal and coronal T1 weighted images ofbrain were acquired. T0 axial gradient echo T2 imaging was alsoperformed. Lbsx-vc-hjyoei MRA of the head and neck was [...] MRA neck. The study was interpreted at [facility].Electronically signed by: TOLU MARTINEZ MD Normal [facility] TSHon 09-06-2017 Thyrotropin Qn 2.11 m[IU]/L Normal 0.44 - 3.98 [facility] Comment on above: Result Comment: TSH testing is performed using different testing methodology at [facility] than at other [facility]. Direct result comparisons should only be made within the same method. Performed By: #### T SH2 ####[facility] [id number] [place] [address] VITAMIN B12on 09-06-2017 Cobalamin (Vitamin B12) mass conc 770 pg/mL Normal 211 - 911 [facility] Comment on above: Performed By: #### V TB12 ####[id number] [place] [address] VITAMIN D, 25-HYDROXYon 08-10 VITAMIN D, 25-HYDROXY 19 ng/mL Abnormal [facility] Comment on above: Result Comment: .DEF ICIENCY: < 20 NG/MLINSUFFICIENCY: 20-29 NG/MLOPTIMUM LEVEL: 30-80 NG/MLPOSSIBLE TOXICITY: > 80 NG/MLTHIS ASSAY ACCURATELY QUANTIFIES THE SUM OFVITAMIN D3, 25-HYDROXY AND VIT D2,25-HYDROXY. Performed By: #### V [facility] ####[id number] [place] [address] Admission Risk Screen - Adul ton 09-05-2017 [...] Spiritual Screen:? Are there any cultural, spiritual, buddhism practices/values/needs that areimportant for us to know?unable to assess CAGE:Is this an injured patient at a Trauma Center ([facility] / [place]): no Vaccinations:Vaccination - Influenza Vaccination Screen:? Is [...] 05-Sep-2017 06:29 by Shira Chaidez (RN) Normal [facility] BASIC METABOLIC PANELon 07-2 Anion gap 3 molar conc 11 mmol/L Normal 10 - 20 [facility] Comment on above: Performed By: #### B MP ####[facility] [id number] [place] [address] Calcium mass conc 8.9 mg/dL Normal 8.6 - 10.3 [facility] Comment on above: Performed By: #### B MP ####[facility] [id number] [place] [address] Chloride molar conc 104 mmol/L Normal 98 - 107 [facility] Comment on above: Performed By: #### B MP ####[facility] [id number] [place] [address] Creatinine mass conc 0.75 mg/dL Normal 0.50 - 1.05 [facility] Comment on above: Performed By: #### B MP ####[facility] [id number] [place] [address] GFR- AM. >60 Normal >60 [facility] Comment on above: Result Comment: CALC ULATIONS OF ESTIMATED GFR ARE PERFORMED USING THE MDRD STUDY EQUATION FOR THE IDMS-TRACEABLE CREATININE METHODS. CLIN CHEM 2007;53:766-72 Performed By: #### B MP ####[facility] [id number] [place] [address] GFR-NON AM. >60 Normal >60 [facility] Comment on above: Performed By: #### B MP ####[facility] [id number] [place] [address] Glucose mass conc 111 mg/dL High 74 - 99 [facility] Comment on above: Performed By: #### B MP ####[facility] [id number] [place] [address] HCO3 molar conc (Bld) 26 mmol/L Normal 21 - 32 [facility] Comment on above: Performed By: #### B MP ####[facility] [id number] [place] [address] Potassium molar conc 3.2 mmol/L Low 3.5 - 5.3 [facility] Comment on above: Performed By: #### B MP ####[facility] [id number] [place] [address] Sodium molar conc 138 mmol/L Normal 136 - 145 [facility] Comment on above: Performed By: #### B MP ####[facility] [id number] [place] [address] Urea nitrogen mass conc 11 mg/dL Normal 6 - 23 [facility] Comment on above: Performed By: #### B MP ####[facility] [id number] [place] [address] BLOOD CULTURE, BACTERIALon 0 09-05-2017 BLOOD CULTURE, BACTERIAL PATIENT: KATHERINE JUDGE LOCATION: [address]#: [id number] : [birth year] AGE: SEX: F ORDERED BY: LOTUS VANCE: Blood COLLECTED: 09/05/17 01:49ANTIBIOTICS AT ESDRAS.: RECEIVED : 09/05/17 11:22SITE: PERIPHERAL R E S U L T S BLOOD CULTURE, BACTERIAL FINAL 09/10/17 11:42 No Growth at 1 days No Growth at 2 days No Growth at 3 days No Growth at 4 days NO GROWTH - FINAL REPORT Normal [facility] Comment on above: Performed By: #### L IPID ####[address] [address] BLOOD CULTURE, BACTERIAL PATIENT: KATHERINE JUDGE LOCATION: [address]#: [id number] : [birth year] AGE: SEX: F ORDERED BY: LOTUS VANCE: Blood COLLECTED: 09/05/17 01:49ANTIBIOTICS AT ESDRAS.: RECEIVED : 09/05/17 11:22SITE: PERIPHERAL R E S U L T S BLOOD CULTURE, BACTERIAL FINAL 09/10/17 11:42 No Growth at 1 days No Growth at 2 days No Growth at 3 days No Growth at 4 days NO GROWTH - FINAL REPORT Normal [facility] Comment on above: Performed By: #### L IPID ####[address] [place] [address] CBCon 09-05-2017 Erythrocyte distribution width Auto Ratio (RBC) 15.5 % High 11.5 - 14.5 [facility] Comment on above: Performed By: #### C BC ####[facility] [id number] [place] [address] Hematocrit Auto Volume Fraction (Bld) 27.1 % Low 36.0 - 46.0 [facility] Comment on above: Performed By: #### C BC ####[facility] [id number] [place] [address] Hemoglobin mass conc (Bld) 8.5 g/dL Low 12.0 - 16.0 [facility] Comment on above: Performed By: #### C BC ####[facility] [id number] [place] [address] MCHC Auto mass conc (RBC) 31.4 g/dL Low 32.0 - 36.0 [facility] Comment on above: Performed By: #### C BC ####[facility] [id number] [place] [address] MCV Auto Entitic volume (RBC) 100 fL Normal 80 - 100 [facility] Comment on above: Performed By: #### C BC ####[facility] [id number] [place] [address] Platelets Auto #/vol (Bld) 359 10*3/uL Normal 150 - 450 [facility] Comment on above: Performed By: #### C BC ####[facility] [id number] [place] [address] RBC Auto #/vol (Bld) 2.72 x10E12/L Low 4.00 - 5.20 [facility] Comment on above: Performed By: #### C BC ####[facility] [id number] [place] [address] WBC Auto #/vol (Bld) 10.6 10*3/uL Normal 4.4 - 11.3 [facility] Comment on above: Performed By: #### C BC ####[id number] [place] [address] CBC AND DIFFERENTIALon 09-05 % AUTOMATED IMMATURE GRAN 0.5 % Normal 0.0 - 0.9 [facility] Comment on above: Result Comment: Perc ent differential counts (%) should be interpreted in the context of the absolute cell counts (cells/L). Performed By: #### L IPID ####[address] [address] % NEUTROPHIL 70.6 % Normal 40.0 - 80.0 [facility] Comment on above: Performed By: #### L IPID ####[address] [address] [address] Basophils/100 WBC Auto (Bld) 0.04 x10E9/L Normal 0.00 - 0.10 [facility] Comment on above: Performed By: #### L IPID ####[address] [address] Basophils/100 WBC Auto (Bld) 0.3 % Normal 0.0 - 2.0 [facility] Comment on above: Performed By: #### L IPID ####[address] [address] Eosinophils Auto #/vol (Bld) 0.13 10*3/uL Normal 0.00 - 0.40 [facility] Comment on above: Performed By: #### L IPID ####[address] [address] Eosinophils/100 WBC Auto (Bld) 1.1 % Normal 0.0 - 6.0 [facility] Comment on above: Performed By: #### L IPID ####[address] [address] Erythrocyte distribution width Auto Ratio (RBC) 15.3 % High 11.5 - 14.5 [facility] Comment on above: Performed By: #### L IPID ####[address] [address] Hematocrit Auto Volume Fraction (Bld) 25.6 % Low 36.0 - 46.0 [facility] Comment on above: Performed By: #### L IPID ####[address] [address] Hemoglobin mass conc (Bld) 8.4 g/dL Low 12.0 - 16.0 [facility] Comment on above: Performed By: #### L IPID ####[address] [address] Lymphocytes Auto #/vol (Bld) 2.55 10*3/uL Normal 0.80 - 3.00 [facility] Comment on above: Performed By: #### L IPID ####[address] [address] Lymphocytes/100 WBC Auto (Bld) 21.6 % Normal 13.0 - 44.0 [facility] Comment on above: Performed By: #### L IPID ####[address] [address] MCHC Auto mass conc (RBC) 32.8 g/dL Normal 32.0 - 36.0 [facility] Comment on above: Performed By: #### L IPID ####[address] [address] MCV Auto Entitic volume (RBC) 100 fL Normal 80 - 100 [facility] Comment on above: Performed By: #### L IPID ####[address] [address] Monocytes Auto #/vol (Bld) 0.70 10*3/uL Normal 0.05 - 0.80 [facility] Comment on above: Performed By: #### L IPID ####[address] [address] Monocytes/100 WBC Auto (Bld) 5.9 % Normal 2.0 - 10.0 [facility] Comment on above: Performed By: #### L IPID ####[address] [place] [address] Neutrophils Auto #/vol (Bld) 8.31 10*3/uL High 1.60 - 5.50 [facility] Comment on above: Performed By: #### L IPID ####[facility] [place] [address] Platelets Auto #/vol (Bld) 422 10*3/uL Normal 150 - 450 [facility] Comment on above: Performed By: #### L IPID ####[address] [place] [address] RBC Auto #/vol (Bld) 2.56 x10E12/L Low 4.00 - 5.20 [facility] Comment on above: Performed By: #### L IPID ####[address] [place] [address] WBC Auto #/vol (Bld) 11.8 10*3/uL High 4.4 - 11.3 [facility] Comment on above: Performed By: #### L IPID ####[address] [place] [address] CHEST 1 VIEWon 09-05-2017 CHEST 1 VIEW [...] hernia.Electronically signed by: CAMILLE VELÁZQUEZ MD Normal [facility] COMPREHENSIVE PANELon 2017 Albumin mass conc 3.3 g/dL Low 3.4 - 5.0 [facility] Comment on above: Performed By: #### L IPID ####[address] [place] [address] ALP enzyme act/vol 95 U/L Normal 33 - 136 [facility] Comment on above: Performed By: #### L IPID ####[address] [place] [address] ALT enzyme act/vol 16 U/L Normal 7 - 45 [facility] Comment on above: Result Comment: Daniel ents treated with Sulfasalazine may generate falsely decreased results for ALT. Performed By: #### L IPID ####[address] [address] Anion gap 3 molar conc 14 mmol/L Normal 10 - 20 [facility] Comment on above: Performed By: #### L IPID ####[address] [address] AST enzyme act/vol 19 U/L Normal 9 - 39 [facility] Comment on above: Performed By: #### L IPID ####[address] [address] Bilirubin mass conc 0.4 mg/dL Normal 0.0 - 1.2 [facility] Comment on above: Performed By: #### L IPID ####[address] [address] Calcium mass conc 9.2 mg/dL Normal 8.6 - 10.3 [facility] Comment on above: Performed By: #### L IPID ####[address] [address] Chloride molar conc 99 mmol/L Normal 98 - 107 [facility] Comment on above: Performed By: #### L IPID ####[address] [address] Creatinine mass conc 0.99 mg/dL Normal 0.50 - 1.05 [facility] Comment on above: Performed By: #### L IPID ####[address] [address] GFR- AM. 65 mL/min/1.73m2 Normal >60 [facility] Comment on above: Result Comment: CALC ULATIONS OF ESTIMATED GFR ARE PERFORMED USING THE MDRD STUDY EQUATION FOR THE IDMS-TRACEABLE CREATININE METHODS. CLIN CHEM 2007;53:766-72 Performed By: #### L IPID ####[facility] [place] [address] GFR-NON AM. 54 mL/min/1.73m2 Abnormal >60 [facility] Comment on above: Performed By: #### L IPID ####[address] [place] [address] Glucose mass conc 94 mg/dL Normal 74 - 99 [facility] Comment on above: Performed By: #### L IPID ####[address] [place] [address] HCO3 molar conc (Bld) 28 mmol/L Normal 21 - 32 [facility] Comment on above: Performed By: #### L IPID ####[address] [place] [address] Potassium molar conc 3.4 mmol/L Low 3.5 - 5.3 [facility] Comment on above: Performed By: #### L IPID ####[address] [address] Protein mass conc 6.9 g/dL Normal 6.4 - 8.2 [facility] Comment on above: Performed By: #### L IPID ####[address] [place] [address] Sodium molar conc 138 mmol/L Normal 136 - 145 [facility] Comment on above: Performed By: #### L IPID ####[address] [place] [address] Urea nitrogen mass conc 16 mg/dL Normal 6 - 23 [facility] Comment on above: Performed By: #### L IPID ####[address] [address] [address] HEAD WO CONTRASTon 2017 CT HEAD [...] ischemic changes.Electronically signed by: CAMILLE VELÁZQUEZ MD [facility] Consult - Neuroon 09-05-2017 Consult - Neuro Service:Consult:Cons ult requested by (Attending Name): Dr. Abraham: Syncope History of Present Illness:HPI:This is a 82 year old woman, poor historian, amnestic for her fall,unwitnessed, resulting in a CHI, resulting in a left forehead contusion, shewas found on the floor. She was recently discharged from this hospital on eiu63zt after management ofa SBO. She has had FTT, repeated abdominal surgeries. PMH: CAD, depression,anemia. Nursing tells me that she has had visual hallucinations: reaching forthings she apparently sees in the air. 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 PMH, PSH, SH, and FH were reviewed [...] Confusion? Restoril: Confusion Objective: Objective Information: T [id number] ate/Time09/05 6: 6: 6: 6:16Range(36.7C - 36.7C [...] exam was normal. In both upper extremities, aqjeme-unqa-ffkhutczn intact without dysmetria or overshoot.In both lower extremities, hwei-gq-yeoj was intact. DONALD were intact in bothupper [...] Urine STRAW Reference Range: STRAW,YELLOWAppearance, Urine CLEARSpecific Sulphur, Urine 1.005pH, Urine 6.0Protein, Urine NEGATIVEGlucose, Urine [...] Last Updated: 05-Sep-2017 12:10 by Altagracia Nicolas) Normal [facility] Discharge Planning Noteon Discharge Planning Note Discharge Needs Assessment:? Discharge Planning Assessment [id number]? Discharge Planning Assessment Completed byMeghan MONTELONGO? Readmission Within the Last 30 Daysprevious discharge plan unsuccessful? Primary Care PhysicianDr. Garnett Adult Information:? Reason for Admission as Stated by PatientAMS? Primary Support Person During HospitalizationNorman, son ? Lives Withspouse? Financial Concernsnone Other Factors:? Functional Screen: In the recent/past 2-4 weeks, patient or family havenoticeda significant change in speech or language(1) Discharge Planning:Discharge Plannin09/05/17 From [facility]. Just d/c from [facility] 09/03/17, had small bowelobstruction. Unwitnessed fall, change in mental status, confused. Shouldreturn to SNF when medically stable. Will follow pt through hospital stay andadjust plan as needed. Meghan Haro RN-BC 09/07/17 1058 DSC: Return SNF referral sent to [facility] awaiting response.Olga Lehman Discharge Windows Server Administrator [phone] 09/07/17 3892 DSC: Response received from following half-way facilities:[facility] has accepted patient. 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 Keyana Haro, Manufacturing Sales Representative, Final Disposition/Discharge:Dispos ition/Discharge Information: Discharge/Transfer Information:? Discharge/Transfer Date/[id number] 13:00? Discharge Modewheelchair? Transportation Methodtransportation service? Valuables/Medications/Belong ings Returnedyes? Belongings CommentDischarged to SNF. IV out, tip intact. Telemetry placed inbasket. All questions answered. Electronic Signatures:Olga Lehman (COOR) (Signed 08-Sep-2017 11:32)Authored: Discharge Planning Elida Coats (RN) (Signed 08-Sep-2017 13:17)Authored: Final Disposition/DischargePenelope Haro (CLIN COOR) (Signed 05-Sep-2017 14:09)Authored: Discharge Planning Alex Monson (COOR) (Signed 08-Sep-2017 16:20)Authored: Discharge Planning Note Last Updated: 08-Sep-2017 16:20 by Alex Haro (COOR) References:1. Data Referenced From "Admission Risk Screen - Adult" 09/05/2017 6:24 AM Normal [facility] History and Physicalon 09-05 History and Physical History of Present Illness:Admission Reason: Acute encephalopathyHPI:82-year-ol d female with a past medical history of failure to thrive,gastrocutaneous fistula, constipation, ileus, small bowel obstruction,transient ischemic colitis, anemia, protein calorie malnutrition, hypokalemia,hypomagnesemia and colitis was admitted from the [facility] emergency room due toaltered mental status. [facility] the hospital [...] Confusion? Restoril: Confusion Objective: Objective Information: T [id number]/92D ate/Time09/05 6: 6: 6: 6:16Range(36.7C - 36.7C [...] Urine STRAW Reference Range: STRAW,YELLOWAppearance, Urine CLEARSpecific Sulphur, Urine 1.005pH, Urine 6.0Protein, Urine NEGATIVEGlucose, Urine [...] hypokalemia,hypomagnesemia and colitis was admitted from the [facility] emergency room due toaltered mental status. Acute [...] prophylaxis-Lovenox CODE STATUS: DO NOT RESUSCITATE [facility] detention records. Signatures/Attestation/Certi fication:Attending Provider ? Inpatient Certification StatementN/A - observationpatient/other outpatient visits Electronic Signatures:Flako Goodman) (Signed 05-Sep-2017 07:49)Authored: History of Present Illness, Comorbidities, Allergies, Objective,Assessment and Plan, Signatures/Attestation/Certi fication Last Updated: 05-Sep-2017 07:49 by Flako Goodman) Normal [facility] LACTATEon 09-05-2017 Lactate molar conc 1.0 mmol/L Normal 0.4 - 2.0 [facility] Comment on above: Result Comment: Hali puncture immediately after or during the administration of Metamizole may lead to falsely low results. Testing should be performed immediately prior to Metamizole dosing. Performed By: #### L IPID ####[address] [place] [address] PT/INRon 09-05-2017 INR Coag RelTime (PPP) 1.1 {INR} Normal 0.9 - 1.1 [facility] Comment on above: Performed By: #### L IPID ####[address] [place] [address] Prothrombin time (PT) Coag time (PPP) 11.5 s Normal 9.8 - 12.7 [facility] Comment on above: Performed By: #### L IPID ####[address] [place] [address] Patient Profile - Adult v2on 09-05-2017 Protein mass conc Profile:Initial Info :How to be AddressedAlice(1)Spoken Language PreferredEnglish (2)Source of InformationpatientAre you currently using the Personal Electronic Health Record or [facility](1)Stated Reason for Admissionunable to respond appropriately.Arrived Fromemergency departmentPatient BelongingsnoneMedications Brought to [facility]:Weight in kg43.8 kilogram(s)Weight in lbs96.7 pound(s)Height in feet5 feetHeight in inches0 inch(es)Height in cm152.4 centimeter(s)BMI (kg/m2)18.858 square meterWeight Methodactual (measured)Scale TypebedHeight Methodestimated [facility] Based Care:How would you like to participate [...] Active? Restoril: Drug, Confusion, Active Electronic Signatures:Shira Chaidez) (Signed 05-Sep-2017 06:39)Authored: Profile, Additional Information Last Updated: 05-Sep-2017 06:39 by Shira Chaidez (RN) References:1. Data Referenced From "Patient Profile - Adult v2" 08/26/2017 04:19 AM2. Data Referenced From "Triage - ED" 09/05/2017 12:33 AM Normal [facility] Provider Note - ED v2on - Protein mass conc Provider Note - ED v 2:Chart Review: ED NOTESED NOTES: Patient with history of cecal volvulus required surgery at [facility] few monthsago, patient has prolonged post surgical difficulty and subsequently developedsmall bowel obstruction, required [facility] recentlyand after discharge from [facility] 2 days ago she has been onnursing [...] for evaluation. Patient herself cannot provide history. [facility] royal was kind enough [...] oral tabletInstructions: 1 tab(s) orally once a eqoZ-V-Uc-F-Sa Drug Name: tiZANidine 2 mg oral tabletInstructions: [...] difficile toxin (C-Diff) Additional Notes:came with ( [facility]) Status:Active Description:Methicillin-Resi stant Staph Aureus (MRSA) Additional Notes:sputum Status:Active Description:Clostridium difficile toxin (C-Diff) Status:Active Other Description:Narcotic Use Status:Active Description:Family spokesperson Additional Notes: CARLOS [phone] BROTHER RYLAND [phone] Status:Active Past Medical History Description:colitis Status:Active Description:mitral valve regurgitation Status:Active Description:gi bleed Status:Active Description:Hypertension (HTN) Status:Active Description:arthritis Status:Active Description:herniated disc lumbar area Status:Active Description: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 Description:depression Status:Active Description:anxiety Status:Active Description:osteoporosis Status:Active Description:diverticulitis Status:Active Description:umbilical hernia Status:Active Description:UTI Status:Active Description:GERD Status:Active Description:CAD Status:Active Description:Non ST elevation CA Status:Active Description:Coronary atherosclerosis Status:Active Description:Sepsis Status:Active Description:Venous [...] Urine STRAW Reference Range: STRAW,YELLOWAppearance, Urine CLEARSpecific Sulphur, Urine 1.005pH, Urine 6.0Protein, Urine NEGATIVEGlucose, Urine [...] 2:52AM] VITAL SIGNS: T PRBP SpO2O2(LPM) %FiO2 [id number] 02:42:00-36.77509505/62 92 room air, no fcemeixvjniffwgnhs51-Jxe-375 8 00:33:00-36.48146877/75 94 room air, no respiratorysupport EKG INTERPRETATION:EKG Date/Time: 05-Sep-2017 00:34Rate: 83Comments: Sinus rhythm rate of 83. No acute ST segment elevation. Rightbundle-branch block. T-wave abnormality involving the inferior leads, inferiorischemia. Portable. Abnormal EKG. No prior EKG to compare to MEDICAL DECISION MAKING/ED COURSEMDM/ED COURSE: Patient was sent to the emergency room by Dr. Renee with advised to transferpatient to use at [facility].Also discussed case with Anyi Gusman he want patient to be transferred to [facility]. Dr. Michelle accepted patient transferred to at [facility]. Shows power of mercury purifier was not available and I will, Patient'sBrother Came andPatient Transfer Paperwork and Agree with the Transfer to the [facility]. CLINICAL IMPRESSIONDiagnosis/Annotati on: ED Dx Name:Altered mental status Code:R41.82 Name:Closed head injury Code:S09.90XA Name:Fall at detention Code:W19.XXXA Dispostion: transferred Time of First Call for Transfer: 04:00[facility]: 04[facility]20Consulting Physician Name: Dr. Miguel Angel M.D.Transfer Accepted: yes ATTESTATION CRITICAL CARE TIMEIs this a critically ill patient?: no Electronic Signatures:Maria A Vance) (Signed 05-Sep-2017 04:43)Authored: Provider Note - ED v2 Last Updated: 05-Sep-2017 04:43 by Maria A Vance) References:1. Data Referenced From "Triage - ED" 09/05/2017 12:33 AM Normal [facility] RED CELL MORPHOLOGYon 2017 HYPOCHROMASIA Mild Normal [facility] Comment on above: Performed By: #### L IPID ####[facility] [place] [address] RBC morphology finding Nom (Bld) See Below Normal [facility] Comment on above: Performed By: #### L IPID ####[facility] [place] [address] TROPONIN Ion 09-05-2017 Troponin I.cardiac mass conc 0.02 ng/mL Normal 0.00 - 0.03 [facility] Comment on above: Result Comment: LESS THAN 0.04 NG/ML: NEGATIVEREPEAT TESTING IN FOUR TO SIX HOURSIF CLINICALLY INDICATED.0.04 - 0.5 NG/ML: CONSISTENT WITH POSSIBLECARDIAC DAMAGE AND POSSIBLE INCREASEDCLINICAL RISK.SERIAL MEASUREMENTS MAY HELP ASSESS EXTENT OFMYOCARDIAL DAMAGE.>0.5 NG/ML: CONSISTENT WITH CARDIAC DAMAGE,INCREASED CLINICAL RISK AND MYOCARDIALINFARCTION. SERIAL MEASUREMENTS MAY HELPASSESS EXTENT OF MYOCARDIAL DAMAGE..Note: Troponin I testing is performed using differenttesting methodology at [facility] than [facility]. Direct result comparisons should onlybe made within the same method. Performed By: #### T ROP2 ####[facility] [id number] [facility] [place] [address] Troponin I.cardiac mass conc 0.02 ng/mL Normal 0.00 - 0.03 [facility] Comment on above: Result Comment: LESS THAN 0.04 NG/ML: NEGATIVEREPEAT TESTING IN FOUR TO SIX HOURSIF CLINICALLY INDICATED.0.04 - 0.5 NG/ML: CONSISTENT WITH POSSIBLECARDIAC DAMAGE AND POSSIBLE INCREASEDCLINICAL RISK.SERIAL MEASUREMENTS MAY HELP ASSESS EXTENT OFMYOCARDIAL DAMAGE.>0.5 NG/ML: CONSISTENT WITH CARDIAC DAMAGE,INCREASED CLINICAL RISK AND MYOCARDIALINFARCTION. SERIAL MEASUREMENTS MAY HELPASSESS EXTENT OF MYOCARDIAL DAMAGE..Note: Troponin I testing is performed using differenttesting methodology at [facility] than at [facility]. Direct result comparisons should onlybe made within the same method. Performed By: #### T ROP2 ####[id number] [place] [address] Troponin I.cardiac mass conc 0.02 ng/mL Normal 0.00 - 0.03 [facility] Comment on above: [...] testing is performed using differenttesting methodology at [facility] than at [facility]. Direct result comparisons should onlybe made within the same method. Performed By: #### L IPID ####[facility] [place] [address] Triage - EDon 09-05-2017 Triage - ED Quick Triage:The pat ient and/or guardian verbally acknowledges placement for services intothe following (when Urgent Care Service hours are operating):emergencydepartme nt Pain:Pain Rating (0-10): Rest3 Chart Review: CHIEF COMPLAINT KATHERINE JUDGE is a Female patient with a chief complaint of altered mentalstatus.Onset of the Complaint: [id number] Date/Time: 05-Sep-2017 00:19Vital Signs:Temperature: 97.6F ( 36.4C) taken foreheadBlood Pressure: 148/75 Mean:Heart Rate: 85Respiratory Rate: 20Pulse Oximetry: 94% Height: 5 feet 4.00 inches. 162.5 CMWeight: 120.0 pounds. 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 History: menopausePatient has suicidal thoughts: unable to assessPatient has homicidal thoughts: unable to assessESI: 2 Last Known Well: unknown PAIN Pain Scale Used: SANDOVAL ARRIVAL INFORMATION Means of Arrival: stretcher Mode of Arrival: ambulance Agency: [facility] ArrivalFrom: half-way facility Accompanied By: EMT/paramedicLanguage:Spoken Language Preferred: Kazakh Reading Language Preferred: Kazakh PRIMARY ASSESSMENT DisabilityDisability/AVPU: KATHERINE is confusedLevel of Consciousness: disoriented to self PAST MEDICAL HISTORY Immunization History:Last Known Tetanus Immunization: Unknown TRAVEL HISTORY Travel Exposure History: NO travel to International locations in the past 30days Past Medical History:? Past Medical History Reviewedyes Electronic Signatures:Nicol Diaz (RN) (Signed 05-Sep-2017 00:56)Authored: Triage, Past Medical History Last Updated: 05-Sep-2017 00:56 by Nicol Diaz (CINTHYA) Normal [facility] URINALYSISon 09-05-2017 APPEARANCE CLEAR Normal CLEAR [facility] Comment on above: Performed By: #### L IPID ####[address] [place] [address] BILIRUBIN Negative Normal NEGATIVE [facility] Comment on above: Performed By: #### L IPID ####[address] [place] [address] BLOOD Negative Normal NEGATIVE [facility] Comment on above: Performed By: #### L IPID ####[facility] [place] [address] COLOR STRAW Normal STRAW,YELL OW [facility] Comment on above: Performed By: #### L IPID ####[address] [place] [address] GLUCOSE Negative Normal NEGATIVE [facility] Comment on above: Performed By: #### L IPID ####[address] [place] [address] KETONES Negative Normal NEGATIVE [facility] Comment on above: Performed By: #### L IPID ####[facility] [place] [address] LEUKOCYTE ESTERASE Negative Normal NEGATIVE [facility] Comment on above: Performed By: #### L IPID ####[facility] [facility] [place] [address] NITRITE Negative Normal NEGATIVE [facility] Comment on above: Performed By: #### L IPID ####[address] [place] [address] pH 6.0 Normal 5.0 - 8.0 [facility] Comment on above: Performed By: #### L IPID ####[address] [place] [address] Protein mass conc Negative Normal NEGATIVE [facility] Comment on above: Performed By: #### L IPID ####[address] [place] [address] SPECIFIC GRAVITY 1.005 Normal 1.005 - 1.035 [facility] Comment on above: Performed By: #### L IPID ####[address] [place] [address] UROBILINOGEN <2.0 Normal 0.0 - 1.9 [facility] Comment on above: Performed By: #### L IPID ####[address] [place] [address] URINE CULTURE,BACTERIALon URINE CULTURE,BACTERIAL PATIENT: KATHERINE JUDGE LOCATION: [address]#: [id number] : [birth year] AGE: SEX: F ORDERED BY: LOTUS VANCE: URINE COLLECTED: 09/05/17 01:37ANTIBIOTICS AT ESDRAS.: RECEIVED : 09/05/17 17:28SITE: Straight Cath R E S U L T S URINE CULTURE,BACTERIAL FINAL 09/06/17 09:42 NO GROWTH Normal [facility] Comment on above: Performed By: #### L IPID ####[address] [address] Daily Progress Note-Infectio us Diseaseon 09-01-2017 Protein mass conc Service: Infectious Disease Subjective Data:KATHERINE JUDGE is a 82 year old Female who is Hospital Day # 7. no fever, no emesis, no diarrhea, no rash. Overnight Events: Patient had an uneventful night. Objective Data: Objective Information:T [id number]/769 4%Date/Time09/01 4: 4: 4: 4: 4:36Range(36.5C - [...] these laboratory results: Basic Metabolic Panel [ 08:15:00]. Radiology Results: Results:Xray Abdomen AP View [...] Last Updated: 01-Sep-2017 11:23 by Nela Collado) [facility] Daily Progress Note-Medicine on 09-01-2017 Protein mass conc Service: Medicine Rick bjective Data:KATHERINE JUDGE is a 82 year old Female who is Hospital Day # 7. Katherine is in doing really well. She is in high spirits, looking forward to bed/c. Her appetite has not picked up yet. Overnight Events: Patient had an uneventful night. Objective Data: Objective Information:T XPZHAjD1Atwwd29.56918861/769 4%Date/Time09/01 4: 4: 4: 4: 4:36Range(36.5C - 37.7C ) (72 - 83 ) (16 - 18 ) (134 - 150 )/ (60 - 77 ) (94%- 97% )Highest temp of 37.7 C was recorded at 08/31 14:41 Pain at Rest reported at 09/01 9:16: 7 Physical Exam: Constitutional: Frail malnourished elderly woman in [facility]: PERLENMT: mucous membranes moist, no apparent injury, [...] laboratory results: Basic Metabolic Panel Trending View Epidui46-Hvc-3679 08:15:00 30-Aug-2017 05:25:00Glucose, Zhdoz056 H 111 OSP416 139K4.0 3.3 JAI877 107Bicarbonate, Serum26 27Anion Gap, Serum9 L 8 LBUN5 L 15IKTJQ0.54 0.49 LGFR-Non >60 >60GFR->60 >60Calcium, Serum8.4 L [...] 20:32NSTEMI (non-ST elevated myocardial infarction): Entered Date: 70-Jdx-789832:25UTI (urinary tract infection), bacterial: Entered Date: 27-Dec-2016 [...] bowel obstruction: Onset Date: 11-Feb-2012, Entered Date: 73-Rzf-927667:56Generalized abdominal pain (finding): Entered Date: 11-Feb-2012 18:56 [...] ST Elevation Myocardial Infarction (NSTEMI): Entered Date: 60-Xqg-381542:29Coronary angioplasty/stent (PCI): Entered Date: 12-Dec-2009 15:30Dyspnea: Entered [...] No melena or hematochezia. She presented to [facility] Emergency Department and CT of her abdomen and pelvis was read as showing findings consistentwith small bowel obstruction. [facility]. We have been consulted to [...] plan is to d/c her back to [place] today Nutrition Diagnosis:? Nutrition DiagnosisAgree with dietitian?s [...] Updated: 01-Sep-2017 12:48 by Brionna Llanes) Normal [facility] Daily Progress Note-Samarao n 09-01-2017 Protein mass conc Service: Surgery Sub jective Data:KATHERINE JUDGE is a 82 year old Female who is Hospital Day # 7. Doing well. Urinating and moving bowels, taking miralax daily.Taking PO without problem. Objective Data: Objective Information:T XFIRMiU4Sjudl56.45587979/769 4%Date/Time09/01 4: 4: 4: 4: 4:36Range(36.5C - [...] 20:32NSTEMI (non-ST elevated myocardial infarction): Entered Date: 83-Tbf-261989:25UTI (urinary tract infection), bacterial: Entered Date: 27-Dec-2016 [...] bowel obstruction: Onset Date: 11-Feb-2012, Entered Date: 21-Ijs-723135:56Generalized abdominal pain (finding): Entered Date: 11-Feb-2012 18:56 [...] ST Elevation Myocardial Infarction (NSTEMI): Entered Date: 15-Tdi-600204:29Coronary angioplasty/stent (PCI): Entered Date: 12-Dec-2009 15:30Dyspnea: Entered Date: 12-Dec-2009 12:38Coronary atherosclerosis: Entered Date: 12-Dec-2009 12:38Left heart catheterization: Entered Date: 12-Dec-2009 12:36Hypotension: Entered Date: 09-Sep-2009 15:03Sepsis: Entered Date: 01-Aug-2009 02:21Venous thromboembolism: Entered Date: 31-Jul-2009 14:57 Assessment:Okay for discharge back to [facility].Continue miralax daily.Recommend heating pad to right side to address discomfort. Signature/Cosignature/Attest ation:Attending Only - Shared Visit with Advanced Practice ProviderThis is a sharedvisit. I have reviewed the Advanced Practice Provider?s encounter note,approve the Advanced Practice Provider?s documentation, and provide thefollowing additional information from my personal encounter.Comments/ Additional Findingspartial sbo now resolved Electronic Signatures:Vanessa Rodarte (CHILD DAY CARE TEACHER-CONTROL CABINET ASSEMBLER) (Signed 01-Sep-2017 13:31)Authored: Service, Subjective Data, Objective Data, Assessment and Plan,Signature/Cosignature/A ttestationMaJessenia vasquez) (Signed 01-Sep-2017 16:03)Authored: Signature/Cosignature/Attest ation Last Updated: 01-Sep-2017 16:03 by Jessenia Tapia) Normal [facility] Discharge Uccrwwx9ku 07-24-2 018 Protein mass conc Discharge Orders:Ant icipated Discharge Date:? Anticipated Discharge Tgxg38-Akc-1392 Problem List: Admitting Dx:? Abdominal pain: Catalog Name: Unspecified abdominal pain Additional Dx:? Essential hypertension: Catalog Name: Essential (primary) hypertension? CAD (coronary artery disease): Catalog Name: Atherosclerotic heart diseaseof [place] coronary artery without angina pectoris? Hypercalcemia: Catalog [...] Significant Events:CABG (2 vessel): Past Surgical History, 64-Glj-1632Xnvpjby Catheterization: Past Surgical Historycataract: Past Surgical History, bilateral with lens implantappendectomy: Past Surgical History, 26 years agocomplete hysterectomy: Past Surgical History, 26 years agobilat knee replacement: Past Surgical HistoryCongestive Heart Failure (CHF): Past Medical HistoryChronic anemia: Past Medical HistoryVenous thromboembolism: Past Medical HistorySepsis: Past Medical HistoryCoronary atherosclerosis: Past Medical HistoryNon ST elevation CA: Past Medical History, 06-Kdy-2617GJO: Past Medical HistoryGERD: Past Medical HistoryUTI: Past Medical Historyumbilical hernia: Past Medical Historydiverticulitis: Past Medical Historyosteoporosis: Past Medical Historyanxiety: Past Medical Historydepression: Past Medical Historypost shingles neuropathy: Past Medical Historyhypercholesterolemia: Past Medical Historyherniated disc lumbar area: Past Medical Historyarthritis: Past Medical HistoryHypertension (HTN): Past Medical Historygi bleed: Past Medical Historymitral valve regurgitation: Past Medical Historycolitis: Past Medical HistoryFamily spokesperson: Other, CARLOS [phone] BROTHERPAUL LIBERTY [phone] Use: OtherClostridium difficile toxin (C-Diff): Infection Control, 61-Hqq-2411Ercrrzcrgmr difficile toxin (C-Diff): Infection Control, 27-Aug-2012, [facility] ( [facility])Methicillin-Resistant Staph Aureus (MRSA): Infection Control, Mar 2012, sputum.Pneumonia- Pneumococcal polysaccharide vaccine-adult: Immunizations.Influenza- Influenza Virus: Immunizations, 65-Lhp-8255Iuhzkcr Information: Contactsdontae [phone] Hospital Providers:Provider RoleProvider Name? Jose Ventura? ConsultingDiego Obregon? ConsultingNela Collado? PrimaryBenjy Garnett? AttendingMaJessenia vasquez DNAR:? DNAR Statusnone Activity:activity as tolerated. May shower. Diet:? Diet Consistency/Texturemechanica l soft Labs 1:? Lab Test(s)CBC? Date To Be Drawn1 week from discharge? Call Results [phone] Dr. Tapia? Fax Results [phone] Dr. Tapia Hospital Course (Home Care/Gold Form):Hospital [...] MD at 01-Sep-2017 16:04:35 Electronic Signatures:Vanessa Rodarte (CHILD DAY CARE TEACHER-CONTROL CABINET ASSEMBLER) (Signed 01-Sep-2017 15:55)Authored: Discharge Orders, Hospital Course (Home Care/Gold Form), Gold FormOrders, Provider FINAL REVIEW of Orders, Gold Form - Tree Tapping Laborer SummaryJessenia Tapia) (Signed 01-Sep-2017 16:04)Authored: Provider FINAL REVIEW of Orders Last Updated: 01-Sep-2017 16:04 by Jessenia Tapia) Normal [facility] HCTon 09-01-2017 Hematocrit Auto Volume Fraction (Bld) Canceled Normal [facility] Comment on above: Order Comment: TEST HCT WAS CANCELLED, 09/01/2017 16:14 PATIENT DISCHARGED. Performed By: #### H CT ####[facility] [id number] [place] [address] HGBon 09-01-2017 Hemoglobin mass conc (Bld) Canceled Normal [facility] Comment on above: Order Comment: TEST HGB WAS CANCELLED, 09/01/2017 16:14 PATIENT DISCHARGED. Performed By: #### H GB ####[facility] [id number] [place] [address] BASIC METABOLIC PANELon 08-10 Anion gap 3 molar conc 9 mmol/L Low 10 - 20 [facility] Comment on above: Performed By: #### B MP ####[facility] [id number] [place] [address] Calcium mass conc 8.4 mg/dL Low 8.6 - 10.3 [facility] Comment on above: Performed By: #### B MP ####[facility] [id number] [place] [address] Chloride molar conc 106 mmol/L Normal 98 - 107 [facility] Comment on above: Performed By: #### B MP ####[facility] [id number] [place] [address] Creatinine mass conc 0.54 mg/dL Normal 0.50 - 1.05 [facility] Comment on above: Performed By: #### B MP ####[facility] [id number] [place] [address] GFR- AM. >60 Normal >60 [facility] Comment on above: Result Comment: CALC ULATIONS OF ESTIMATED GFR ARE PERFORMED USING THE MDRD STUDY EQUATION FOR THE IDMS-TRACEABLE CREATININE METHODS. CLIN CHEM 2007;53:766-72 Performed By: #### B MP ####[facility] [id number] [place] [address] GFR-NON AM. >60 Normal >60 [facility] Comment on above: Performed By: #### B MP ####[facility] [id number] [place] [address] Glucose mass conc 113 mg/dL High 74 - 99 [facility] Comment on above: Performed By: #### B MP ####[facility] [id number] [place] [address] HCO3 molar conc (Bld) 26 mmol/L Normal 21 - 32 [facility] Comment on above: Performed By: #### B MP ####[facility] [id number] [place] [address] Potassium molar conc 4.0 mmol/L Normal 3.5 - 5.3 [facility] Comment on above: Performed By: #### B MP ####[facility] [id number] [place] [address] Sodium molar conc 137 mmol/L Normal 136 - 145 [facility] Comment on above: Performed By: #### B MP ####[facility] [id number] [place] [address] Urea nitrogen mass conc 5 mg/dL Low 6 - 23 [facility] Comment on above: Performed By: #### B MP ####[facility] [id number] [place] [address] Daily Progress Note-Infectio us Diseaseon 08-31-2017 Protein mass conc Service: Infectious Disease Subjective Data:KATHERINE JUDGE is a 82 year old Female who is Hospital Day # 6. no fever, no emesis, no diarrhea, no sob, able to eat. Overnight Events: Patient had an uneventful night. Objective Data: Objective Information:T ZWQXFjF3Khdoa11.68856505/649 5%Date/Time08/31 5: 5: 5: 5: 5:00Range(36.5C - [...] reviewed these laboratory results: Basic Metabolic Panel [Vuibp77-Ykt-9397 08:15:00], Basic Metabolic Panel [Drawn 30-Aug-2017 05:25:00],Complete [...] Last Updated: 31-Aug-2017 10:30 by Nela Collado) Normal [facility] Daily Progress Note-Medicine on 08-31-2017 Protein mass conc Service: Medicine Rick bjective Data:KATHERINE JUDGE is a 82 year old Female who is Hospital Day # 6. Katherine is in doing really well. She is in high spirits, looking forward to bed/c. Her appetite has not picked up yet. Overnight Events: Patient had an uneventful night. Objective Data: Objective Information:T ICFHBuT2Ebdhu43.40433656/649 5%Date/Time08/31 5: 5: 5: 5: 5:00Range(36.5C - 37.4C ) (61 - 101 ) (18 - 18 ) (146 - 160 )/ (64 - 79 )(95% - 96% )Highest temp of 37.4 C was recorded at 08/30 14:04 Pain at Rest reported at 08/31 10:30: 7 Physical Exam: Constitutional: Frail malnourished elderly woman in [facility]: PERLENMT: mucous membranes moist, no apparent injury, [...] laboratory results: Basic Metabolic Panel Trending View Qchpkq57-Ube-2234 08:15:00 30-Aug-2017 05:25:00Glucose, Kmkjz060 H 111 NPC900 139K4.0 3.3 VIR996 107Bicarbonate, Serum26 27Anion Gap, Serum9 L 8 LBUN5 L 54FKXZJ9.54 0.49 LGFR-Non >60 >60GFR->60 >60Calcium, Serum8.4 L 8.1 L Assessment and Plan:Assessment:82-year-old woman with history of multiple abdominal surgeries who was in herusual state of health when she developed nausea later followed by vomiting,abdominal distention and abdominal pain. She denied fever, chills, sweats. Nodiarrhea. No melena or hematochezia. She presented to [facility] Emergency Department and CT of her abdomen and pelvis was read as showing findings consistentwith small bowel obstruction. She was transferred to [facility]. We have been consulted to [...] plan is to d/c her back to [place] tomorrow. Nutrition Diagnosis:? Nutrition DiagnosisAgree with dietitian?s [...] 12:51 by Maria Del Carmen Andino) Normal [facility] Daily Progress Note-Surgeryo n 08-31-2017 Protein mass conc Consult Type: subseq uent visit/care Service: Surgery Subjective Data:KATHERINE JUDGE is a 82 year old Female who is Hospital Day # 6. No voiced c/o. Overnight Events: Patient had an uneventful night. Objective Data: Objective Information:T QNPREtD6Mmfme70.86469839/649 5%Date/Time08/31 5: 5: 5: 5: 5:00Range(36.5C - [...] 20:32NSTEMI (non-ST elevated myocardial infarction): Entered Date: 71-Xkb-728057:25UTI (urinary tract infection), bacterial: Entered Date: 27-Dec-2016 [...] bowel obstruction: Onset Date: 11-Feb-2012, Entered Date: 93-Wgq-840639:56Generalized abdominal pain (finding): Entered Date: 11-Feb-2012 18:56 [...] ST Elevation Myocardial Infarction (NSTEMI): Entered Date: 10-Zat-924628:29Coronary angioplasty/stent (PCI): Entered Date: 12-Dec-2009 15:30Dyspnea: Entered [...] Findingsadv dietkeep on miralax Electronic Signatures:Vanessa Rodarte (CHILD DAY CARE TEACHER-CONTROL CABINET ASSEMBLER) (Signed 31-Aug-2017 10:30)Authored: Service, Subjective Data, Objective Data, Assessment and Plan,Signature/Cosignature/A ttestationJessenia Tapia) (Signed 31-Aug-2017 10:35)Authored: Signature/Cosignature/Attest ation Last Updated: 31-Aug-2017 10:35 by Jessenia Tapia) [facility] Nutrition Therapy-Assessment on 08-31-2017 Nutrition Therapy-Assessment Assessment Subjective/Objective:Note Type: Assessment Note Authored by: Registered Dietitian NutritionistPager Number: [phone] Nutrition Note:The patient is a 82 year [...] bowel obstruction (disorder):Acute bowel obstruction: Onset Date: 77-Dgv-0759Kfdtoetoiyn abdominal pain (finding): Chronic:Fluid overload pulmonary edema:Clostridium difficile infection:Chest pain:Diarrhea: Other Dx/Proc:CHEST PAIN: Description: CHEST PAINUnstable angina/chest pain: Description: Unstable angina/chest painGastrointestinal bleeding: Description: Gastrointestinal bleeding1 Colitis, 2 Abdomen Pain 3 Cholelithiasis: Onset Date: 56-Gjm-3876Cukaf failure: Description: Heart failurePNEUMONIA:Diabetes mellitus: Description: Diabetes [...] bowel obstruction (disorder):Acute bowel obstruction: Onset Date: 59-Lle-0823Sjpujtjchin abdominal pain (finding):Acute bowel obstruction:Acute bowel obstruction: Objective Information: T XPKKAgW0Imcki69.70402659/649 5%Date/Time08/31 5: 5: 5: 5: 5:00Range(36.5C - 37.4C ) (61 - 101 ) (18 - 18 ) (146 - 160 )/ (64 - 79 )(95% - 96% )Highest temp of 37.4 C was recorded at 08/30 14:04 Pain at Rest reported at 08/31 10:30: 7 ---- Intake and Output -----Mn/Dy/Year TimeIntakeOutputNetJul 2017 6:00 [id number] 2017 10:00 ll037Sbq 2017 2:00 [id number] The Intake and Output Totals for the last 24 hours are:XebtnpMiscuvSmv9125tgonh ull Intake Output Enteral - Oral 360 mL IV Fluids 2409 mL Height/Weight:Height in feet: 5 feetHeight in inches: 0 inch(es)Height in cm: 152.4 centimeter(s)Weight (kg): 40.6BMI (kg/m2): 17.48 square meterDBW (kg): 45%DBW: 90Weight history/ % weight change: 06/18/17 -- 45.9kg2/10/27 -- 46.8kg12/ -- 45.9kg6/ -- 49kg 13% weight loss in 6 months; 11% weight loss in ~3 monthsSignificant Weight Change: yes Recent Lab Results: Results: I have reviewed these laboratory results: Basic Metabolic Panel Trending View Jmzvib70-Fri-9327 08:15:00 30-Aug-2017 05:25:00Glucose, Vrzoi574 H 111 AYN235 139K4.0 3.3 VRK406 107Bicarbonate, Serum26 27Anion Gap, Serum9 L 8 LBUN5 L 65HCNHK6.54 0.49 LGFR-Non >60 >60GFR->60 >60Calcium, Serum8.4 L 8.1 L Nutrition Labs:Special Chemistry: 03-Jul-2017 10:15, Hemoglobin J5JZecxbmtxvo A1C, Level5.3 Diagnosis of Diabetes-Adults Non-Diabetic: < or = 5.6% Increased risk for developing diabetes: 5.7-6.4% Diagnostic of diabetes: > or = 6.5%. Monitoring of Diabetes Age (y) Therapeutic Goal (%) Adults: >18 <7.0 Pediatrics: 13-18 <7.5 7-12 <8.0 0- 6 7.5-8.5 [place] [employer]. Diabetes Care 33(S1), Feb 2009.Estimated Average Sypihjm470 Current Active Medications/PN:Ondansetron Injectable, (ZOFRAN)DOSE = 4 mg IntraVenous Push Every 4 Hours, PRN Nausea, 31-Sjn-9542Qnmanvgmp 5% TransDermal, Film (LIDODERM)DOSE = 1 patch TransDermal Every 24 Hours, 54-Pmu-0294Oytwpsxjno Mononitrate Extended Release, Tablet, Extended Release (IMDUR)DOSE = 60 mg Oral At Bedtime, 82-Rrf-3981Hhgtiysqvr, Tablet (PRINIVIL, ZESTRIL)DOSE = 10 mg Oral Daily, 84-Hfu-7638Ymgntlpftr Tartrate, Tablet (LOPRESSOR)DOSE = 50 mg Oral Every 12 Hours, 42-Bxf-5437tscTWVLOL 5 mg - Acetaminophen 325 mg, Tablet (PERCOCET)DOSE = 1 tablet(s) Oral Every 4 Hours, PRN Pain - Severe (7-10), 87-Xaj-4649Wyxbaexfhiba, Enteric Coated Tablet (PROTONIX)DOSE = 40 mg Oral Daily, 97-Ffq-6355Usrdjspahwif Glycol, Powder for Reconstitution (MIRALAX)DOSE = 17 gram(s) Oral Daily, 31-Aug-2017 Nutrition Orders:May Participate in Room Service, YesOrder entered from Admission Screens., 65-Oxd-9108Xmcw Nutritional Supplements, RoutineBoost PuddingFlavor Preference: Vanilla, 2 Times a DaySpecial Instructions: Please send wtih lunch and dinner.AFTERNOON SNACK:Please send pt fresh fruit and cheese for afternoon snack. Thank you!,09-Arg-0767Yuzh, Mechanical Soft, 31-Aug-2017 Food/Nutrition Related History:Change in [...] stool output, mealtime behavior, labs Electronic Signatures:Mikie Angeli (DEEPA HENRIQUEZ) (Signed 31-Aug-2017 11:26)Authored: Assessment Subjective/Objective, Nutrition Focused PhysicalFindings, Estimated Needs, Nutrition Diagnosis, Nutrition Interventions,Nutrition Goals, Nutrition Recommendations, Dietitian Monitoring and EvaluationPlan Last Updated: 31-Aug-2017 11:26 by Mikie May (DEEPA HENRIQUEZ) Normal [facility] BASIC METABOLIC PANELon 07-2 Anion gap 3 molar conc 8 mmol/L Low 10 - 20 [facility] Comment on above: Performed By: #### B MP ####[facility] [id number] [place] [address] Calcium mass conc 8.1 mg/dL Low 8.6 - 10.3 [facility] Comment on above: Performed By: #### B MP ####[facility] [id number] [place] [address] Chloride molar conc 107 mmol/L Normal 98 - 107 [facility] Comment on above: Performed By: #### B MP ####[facility] [id number] [place] [address] Creatinine mass conc 0.49 mg/dL Low 0.50 - 1.05 [facility] Comment on above: Performed By: #### B MP ####[facility] [id number] [place] [address] GFR- AM. >60 Normal >60 [facility] Comment on above: Result Comment: CALC ULATIONS OF ESTIMATED GFR ARE PERFORMED USING THE MDRD STUDY EQUATION FOR THE IDMS-TRACEABLE CREATININE METHODS. CLIN CHEM 2007;53:766-72 Performed By: #### B MP ####[facility] [id number] [place] [address] GFR-NON AM. >60 Normal >60 [facility] Comment on above: Performed By: #### B MP ####[facility] [id number] [place] [address] Glucose mass conc 111 mg/dL High 74 - 99 [facility] Comment on above: Performed By: #### B MP ####[facility] [id number] [place] [address] HCO3 molar conc (Bld) 27 mmol/L Normal 21 - 32 [facility] Comment on above: Performed By: #### B MP ####[facility] [id number] [place] [address] Potassium molar conc 3.3 mmol/L Low 3.5 - 5.3 [facility] Comment on above: Performed By: #### B MP ####[facility] [id number] [place] [address] Sodium molar conc 139 mmol/L Normal 136 - 145 [facility] Comment on above: Performed By: #### B MP ####[facility] [id number] [facility] [place] [address] Urea nitrogen mass conc 14 mg/dL Normal 6 - 23 [facility] Comment on above: Performed By: #### B MP ####[facility] [id number] [place] [address] CBCon 08-30-2017 Erythrocyte distribution width Auto Ratio (RBC) 14.1 % Normal 11.5 - 14.5 [facility] Comment on above: Performed By: #### C BC ####[facility] [facility] [place] [address] Hematocrit Auto Volume Fraction (Bld) 26.5 % Low 36.0 - 46.0 [facility] Comment on above: Performed By: #### C BC ####[facility] [place] [address] Hemoglobin mass conc (Bld) 8.4 g/dL Low 12.0 - 16.0 [facility] Comment on above: Performed By: #### C BC ####[facility] [place] [address] MCHC Auto mass conc (RBC) 31.7 g/dL Low 32.0 - 36.0 [facility] Comment on above: Performed By: #### C BC ####[facility] [facility] [place] [place] [address] MCV Auto Entitic volume (RBC) 99 fL Normal 80 - 100 [facility] Comment on above: Performed By: #### C BC ####[facility] [id number] [place] [address] Platelets Auto #/vol (Bld) 272 10*3/uL Normal 150 - 450 [facility] Comment on above: Performed By: #### C BC ####[facility] [id number] [place] [address] RBC Auto #/vol (Bld) 2.67 x10E12/L Low 4.00 - 5.20 [facility] Comment on above: Performed By: #### C BC ####[facility] [id number] [place] [address] WBC Auto #/vol (Bld) 7.8 10*3/uL Normal 4.4 - 11.3 [facility] Comment on above: Performed By: #### C BC ####[facility] [id number] [facility] [place] [address] Daily Progress Note-Infectio us Diseaseon 08-30-2017 Protein mass conc Service: Infectious Disease Subjective Data:KATHERINE JUDGE is a 82 year old Female who is Hospital Day # 5. no fever, no emesis, no abdominal pain, no diarrhea, no rash. Overnight Events: Patient had an uneventful night. Objective Data: Objective Information:T CGJHKaS7Hbsdc417418301/8197% Date/Time08/30 5: 5: 5: 5: 5:01Range(36C - [...] reviewed these laboratory results: Basic Metabolic Panel [Tygbl92-Qhv-5719 05:25:00], Complete Blood Count [Drawn 30-Aug-2017 05:25:00],Magnesium, [...] Signature/Cosignature/Attest ation Last Updated: 30-Aug-2017 11:14 by Nela Collado) [facility] Daily Progress Note-Medicine on 08-30-2017 Protein mass conc Service: Medicine Rick bjective Data:KATHERINE JUDGE is a 82 year old Female who is Hospital Day # 5. Started on full liquid diet this morning, had multiple looses BMs. Overnight Events: Patient had an uneventful night. Objective Data: Objective Information:T XCHRMdW3Racvw674593403/8197% Date/Time08/30 5: 5: 5: 5: 5:01Range(36C - [...] No melena or hematochezia. She presented to [facility] Emergency Department and CT of her abdomen and pelvis was read as showing findings consistentwith small bowel obstruction. [facility] was [facility]. We have been consulted to [...] 13:18 by Maria Del Carmen Andino) Normal [facility] Daily Progress Note-Samarao n 08-30-2017 Protein mass conc Service: Surgery Sub jective Data:KATHERINE JUDGE is a 82 year old Female who is Hospital Day # 5. Overnight Events: Patient had an uneventful night. Objective Data: Objective Information:T IOIGQvK4Hrdec851774690/8197% Date/Time08/30 5: 5: 5: 5: 5:01Range(36C - [...] reviewed these laboratory results: Basic Metabolic Panel 22-Ishan-2018 05:25:00 ResultValueGlucose, Serum 111 HNA 139K 3.3 [...] 20:32NSTEMI (non-ST elevated myocardial infarction): Entered Date: 42-Ixp-774692:25UTI (urinary tract infection), bacterial: Entered Date: 27-Dec-2016 [...] bowel obstruction: Onset Date: 11-Feb-2012, Entered Date: 88-Img-888167:56Generalized abdominal pain (finding): Entered Date: 11-Feb-2012 18:56 [...] ST Elevation Myocardial Infarction (NSTEMI): Entered Date: 35-Kym-133936:29Coronary angioplasty/stent (PCI): Entered Date: 12-Dec-2009 15:30Dyspnea: Entered Date: 12-Dec-2009 12:38Coronary atherosclerosis: Entered Date: 12-Dec-2009 12:38Left heart catheterization: Entered Date: 12-Dec-2009 12:36Hypotension: Entered Date: 09-Sep-2009 15:03Sepsis: Entered Date: 01-Aug-2009 02:21Venous thromboembolism: Entered Date: 31-Jul-2009 14:57 Assessment:improving adv diet slowly Electronic Signatures:Jessenia Tapia) (Signed 30-Aug-2017 11:46)Authored: Service, Subjective Data, Objective Data, Assessment and Plan,Signature/Cosignature/A ttestation Last Updated: 30-Aug-2017 11:46 by Jessenia Tapia) Normal [facility] MAGNESIUMon 08-30-2017 Magnesium mass conc 1.48 mg/dL Low 1.60 - 2.40 [facility] Comment on above: Performed By: #### M G ####[facility] [id number] [place] [address] CBCon 08-29-2017 Erythrocyte distribution width Auto Ratio (RBC) 14.0 % Normal 11.5 - 14.5 [facility] Comment on above: Performed By: #### C BC ####[facility] [id number] [place] [address] Hematocrit Auto Volume Fraction (Bld) 31.5 % Low 36.0 - 46.0 [facility] Comment on above: Performed By: #### C BC ####[facility] [id number] [place] [address] Hemoglobin mass conc (Bld) 10.0 g/dL Low 12.0 - 16.0 [facility] Comment on above: Performed By: #### C BC ####[facility] REG [id number] [place] [address] MCHC Auto mass conc (RBC) 31.7 g/dL Low 32.0 - 36.0 [facility] Comment on above: Performed By: #### C BC ####[facility] REG [id number] [facility] [place] [place] [address] MCV Auto Entitic volume (RBC) 99 fL Normal 80 - 100 [facility] Comment on above: Performed By: #### C BC ####[id number] [place] [address] Platelets Auto #/vol (Bld) 338 10*3/uL Normal 150 - 450 [facility] Comment on above: Performed By: #### C BC ####[facility] [place] [address] RBC Auto #/vol (Bld) 3.18 x10E12/L Low 4.00 - 5.20 [facility] Comment on above: Performed By: #### C BC ####[facility] [facility] [place] [place] [address] WBC Auto #/vol (Bld) 13.1 10*3/uL High 4.4 - 11.3 [facility] Comment on above: Performed By: #### C BC ####[facility] REG [id number] [place] [address] COMPREHENSIVE PANELon 2017 Albumin mass conc 3.0 g/dL Low 3.4 - 5.0 [facility] Comment on above: Performed By: #### C MP ####[facility] REG [id number] [place] [address] ALP enzyme act/vol 65 U/L Normal 33 - 136 [facility] Comment on above: Performed By: #### C MP ####[facility] [id number] [place] [address] ALT enzyme act/vol 14 U/L Normal 7 - 45 [facility] Comment on above: Result Comment: Daniel ents treated with Sulfasalazine may generate falsely decreased results for ALT. Performed By: #### C MP ####[facility] [id number] [place] [address] Anion gap 3 molar conc 11 mmol/L Normal 10 - 20 [facility] Comment on above: Performed By: #### C MP ####[facility] [id number] [place] [address] AST enzyme act/vol 16 U/L Normal 9 - 39 [facility] Comment on above: Performed By: #### C MP ####[facility] [id number] [place] [address] Bilirubin mass conc 0.5 mg/dL Normal 0.0 - 1.2 [facility] Comment on above: Performed By: #### C MP ####[facility] [id number] [place] [address] Calcium mass conc 8.7 mg/dL Normal 8.6 - 10.3 [facility] Comment on above: Performed By: #### C MP ####[facility] [id number] [place] [address] Chloride molar conc 105 mmol/L Normal 98 - 107 [facility] Comment on above: Performed By: #### C MP ####[facility] [id number] [place] [address] Creatinine mass conc 0.59 mg/dL Normal 0.50 - 1.05 [facility] Comment on above: Performed By: #### C MP ####[facility] [id number] [place] [address] GFR- AM. >60 Normal >60 [facility] Comment on above: Result Comment: CALC ULATIONS OF ESTIMATED GFR ARE PERFORMED USING THE MDRD STUDY EQUATION FOR THE IDMS-TRACEABLE CREATININE METHODS. CLIN CHEM 2007;53:766-72 Performed By: #### C MP ####[facility] [id number] [place] [address] GFR-NON AM. >60 Normal >60 [facility] Comment on above: Performed By: #### C MP ####[facility] [id number] [place] [address] Glucose mass conc 115 mg/dL High 74 - 99 [facility] Comment on above: Performed By: #### C MP ####[facility] [id number] [place] [address] HCO3 molar conc (Bld) 27 mmol/L Normal 21 - 32 [facility] Comment on above: Performed By: #### C MP ####[facility] [id number] [place] [address] Potassium molar conc 3.8 mmol/L Normal 3.5 - 5.3 [facility] Comment on above: Performed By: #### C MP ####[facility] [id number] [place] [address] Protein mass conc 6.5 g/dL Normal 6.4 - 8.2 [facility] Comment on above: Performed By: #### C MP ####[facility] [id number] [place] [address] Sodium molar conc 139 mmol/L Normal 136 - 145 [facility] Comment on above: Performed By: #### C MP ####[facility] [id number] [place] [address] Urea nitrogen mass conc 43 mg/dL High 6 - 23 [facility] Comment on above: Performed By: #### C MP ####[facility] [id number] [place] [address] Daily Progress Note-Infectio us Diseaseon 08-29-2017 Protein mass conc Service: Infectious Disease Subjective Data:KATHERINE JUDGE is a 82 year old Female who is Hospital Day # 4. no fever, had BM per the nurses, the hx is not reliable. Overnight Events: Patient had an uneventful night. Objective Data: Objective Information:T [id number]/75 95%Date/Time08/29 10: 10: 10: 10: 10:20Range(36.3C - [...] reviewed these laboratory results: Comprehensive Metabolic Panel [[id number] 06:05:00], Complete Blood Count [Drawn 29-Aug-2017 06:05:00],Magnesium, [...] Updated: 29-Aug-2017 10:55 by Nela Collado) Normal [facility] Daily Progress Note-Medicine on 08-29-2017 Protein mass conc Service: Medicine Rick bjective Data:KATHERINE JUDGE is a 82 year old Female who is Hospital Day # 4. Still be NPO, has not moved her bowels or had flatus. NG is out.She is more withdrawn today. Did not have a good night sleep. Objective Data: Objective Information:T [id number]/799 4%Date/Time08/29 5: 5: 5: 5: 5:55Range(36.3C - [...] No melena or hematochezia. She presented to [facility] Emergency Department and CT of her abdomen and pelvis was read as showing findings consistentwith small bowel obstruction. She was transferred to [facility]. We have been consulted to [...] Electronic Signatures:Maria Del Carmen Andino () (Signed 29-Aug-2017 10:08)Authored: Service, Subjective Data, Objective Data, Assessment and Plan,Signature/Cosignature/A ttestation Last Updated: 29-Aug-2017 10:08 by Maria Del Carmen Andino) Normal [facility] Daily Progress Note-Melly merino 08-29-2017 Protein mass conc Service: Surgery Sub jective Data:KATHERINE JUDGE is a 82 year old Female who is Hospital Day # 4. Overnight Events: Patient had an uneventful night.Additional Information:pt very sleepy this amshe apparently was up all night and had multiple loose stools over night Objective Data: Objective Information:T [id number]/75 95%Date/Time08/29 10: 10: 10: 10: 10:20Range(36.3C - [...] 20:32NSTEMI (non-ST elevated myocardial infarction): Entered Date: 94-Nkj-719554:25UTI (urinary tract infection), bacterial: Entered Date: 27-Dec-2016 [...] bowel obstruction: Onset Date: 11-Feb-2012, Entered Date: 09-Jdh-836606:56Generalized abdominal pain (finding): Entered Date: 11-Feb-2012 18:56 [...] ST Elevation Myocardial Infarction (NSTEMI): Entered Date: 69-Nam-027965:29Coronary angioplasty/stent (PCI): Entered Date: 12-Dec-2009 15:30Dyspnea: Entered Date: 12-Dec-2009 12:38Coronary atherosclerosis: Entered Date: 12-Dec-2009 12:38Left heart catheterization: Entered Date: 12-Dec-2009 12:36Hypotension: Entered Date: 09-Sep-2009 15:03Sepsis: Entered Date: 01-Aug-2009 02:21Venous thromboembolism: Entered Date: 31-Jul-2009 14:57 Assessment:resolving sbodehydrationtry clears Electronic Signatures:Jessenia Tapia) (Signed 29-Aug-2017 12:02)Authored: Service, Subjective Data, Objective Data, Assessment and Plan,Signature/Cosignature/A ttestation Last Updated: 29-Aug-2017 12:02 by Jessenia Tapia) Normal [facility] MAGNESIUMon 08-29-2017 Magnesium mass conc 1.68 mg/dL Normal 1.60 - 2.40 [facility] Comment on above: Performed By: #### M G ####[address] [address] OCCULT BLOOD TEST,STOOLon OCCULT BLOOD,STOOL Positive Abnormal Negative [facility] Comment on above: Performed By: #### O CCB1 ####[facility] [place] [address] Daily Progress Note-Infectio us Diseaseon 08-28-2017 Protein mass conc Service: Infectious Disease Subjective Data:KATHERINE JUDGE is a 82 year old Female who is Hospital Day # 3. no fever, no BM, no abdominal hall, no sob, no rash. Overnight Events: Patient had an uneventful night. Objective Data: Objective Information:T [id number]/739 8%Date/Time08/28 7: 7: 7: 7: 7:51Range(36.8C - [...] reviewed these laboratory results: Complete Blood Count [[id number] 06:33:00], Basic Metabolic Panel [Drawn 27-Aug-2017 06:33:00]. [...] Last Updated: 28-Aug-2017 09:04 by Nela Collado) Normal [facility] Daily Progress Note-Medicine on 08-28-2017 Protein mass conc Service: Medicine Rick bjective Data:KATHERINE JUDGE is a 82 year old Female who is Hospital Day # 3. Feeling ok today. Still has NG tube. After a suppository had a small BM. Doesnot pass the flatus. Objective Data: Objective Information:T [id number]/849 3%Date/Time08/28 12: 12: 12: 12: 12:13Range(36.7C - [...] No melena or hematochezia. She presented to [facility] Department and CT of her abdomen and pelvis was read as showing findings consistentwith small bowel obstruction. She was transferred to [facility] management. We have been consulted to [...] SCDs Electronic Signatures:Maria Del Carmen Andino) (Signed 28-Aug-2017 12:43)Authored: Service, Subjective Data, Objective Data, Assessment and Plan,Signature/Cosignature/A ttestation Last Updated: 28-Aug-2017 12:43 by Maria Del Carmen Andino) Normal [facility] Daily Progress Note-Melly merino 08-28-2017 Protein mass conc Service: Surgery Sub jective Data:KATHERINE JUDGE is a 82 year old Female who is Hospital Day # 3. Overnight Events: Patient had an uneventful night.Additional Information:pt had a BM with suppository Objective Data: Objective Information:T MTPCOmX9Ebveo52.88336162/869 2%Date/Time08/28 14: 14: 14: 14: 14:55Range(36.6C - [...] 20:32NSTEMI (non-ST elevated myocardial infarction): Entered Date: 09-Ttc-316488:25UTI (urinary tract infection), bacterial: Entered Date: 27-Dec-2016 [...] bowel obstruction: Onset Date: 11-Feb-2012, Entered Date: 14-Ixm-065749:56Generalized abdominal pain (finding): Entered Date: 11-Feb-2012 18:56 [...] ST Elevation Myocardial Infarction (NSTEMI): Entered Date: 48-Vky-832491:29Coronary angioplasty/stent (PCI): Entered Date: 12-Dec-2009 15:30Dyspnea: Entered Date: 12-Dec-2009 12:38Coronary atherosclerosis: Entered Date: 12-Dec-2009 12:38Left heart catheterization: Entered Date: 12-Dec-2009 12:36Hypotension: Entered Date: 09-Sep-2009 15:03Sepsis: Entered Date: 01-Aug-2009 02:21Venous thromboembolism: Entered Date: 31-Jul-2009 14:57 Assessment:looks bettertry to d/c ngt later Electronic Signatures:Jessenia Tapia) (Signed 28-Aug-2017 15:04)Authored: Service, Subjective Data, Objective Data, Assessment and Plan,Signature/Cosignature/A ttestation Last Updated: 28-Aug-2017 15:04 by Jessenia Tapia) Normal [facility] ABDOMEN AP VIEWon 08-27-2017 ABDOMEN AP VIEW Name: KATHERINE JUDGE STUDY:TH ABDOMEN AP VIEW; 08/27/2017 9:11 am INDICATION:Signs/Symptoms: abdominal pain with nausea/vomiting. COMPARISON:07/04/2014 ORDERING CLINICIAN:VANESSA RODARTE TECHNIQUE:1 views of the abdomen FINDINGS:NG tube terminates in the gastric body. A no dilated loops of bowel.Mild scattered stool in the colon. IMPRESSION:No dilated loops of bowel.Electronically signed by: BETITO MANN MD Normal [facility] BASIC METABOLIC PANELon 08-09 Anion gap 3 molar conc 11 mmol/L Normal 10 - 20 [facility] Comment on above: Performed By: #### B MP ####[facility] REG [id number] [facility] [place] [address] Calcium mass conc 9.0 mg/dL Normal 8.6 - 10.3 [facility] Comment on above: Performed By: #### B MP ####[facility] REG [id number] [place] [address] Chloride molar conc 97 mmol/L Low 98 - 107 [facility] Comment on above: Performed By: #### B MP ####[facility] [id number] [place] [address] Creatinine mass conc 0.54 mg/dL Normal 0.50 - 1.05 [facility] Comment on above: Performed By: #### B MP ####[facility] [id number] [place] [address] GFR- AM. >60 Normal >60 [facility] Comment on above: Result Comment: CALC ULATIONS OF ESTIMATED GFR ARE PERFORMED USING THE MDRD STUDY EQUATION FOR THE IDMS-TRACEABLE CREATININE METHODS. CLIN CHEM 2007;53:766-72 Performed By: #### B MP ####[facility] [id number] [place] [address] GFR-NON AM. >60 Normal >60 [facility] Comment on above: Performed By: #### B MP ####[facility] [id number] [place] [address] Glucose mass conc 132 mg/dL High 74 - 99 [facility] Comment on above: Performed By: #### B MP ####[facility] [id number] [place] [address] HCO3 molar conc (Bld) 38 mmol/L High 21 - 32 [facility] Comment on above: Performed By: #### B MP ####[facility] [id number] [place] [address] Potassium molar conc 3.2 mmol/L Low 3.5 - 5.3 [facility] Comment on above: Performed By: #### B MP ####[facility] [id number] [place] [address] Sodium molar conc 143 mmol/L Normal 136 - 145 [facility] Comment on above: Performed By: #### B MP ####[facility] [id number] [place] [address] Urea nitrogen mass conc 9 mg/dL Normal 6 - 23 [facility] Comment on above: Performed By: #### B MP ####[facility] [id number] [place] [address] CBCon 08-27-2017 Erythrocyte distribution width Auto Ratio (RBC) 14.2 % Normal 11.5 - 14.5 [facility] Comment on above: Performed By: #### C BC ####[facility] [id number] [place] [address] Hematocrit Auto Volume Fraction (Bld) 36.2 % Normal 36.0 - 46.0 [facility] Comment on above: Performed By: #### C BC ####[facility] [id number] [place] [address] Hemoglobin mass conc (Bld) 11.7 g/dL Low 12.0 - 16.0 [facility] Comment on above: Performed By: #### C BC ####[facility] [id number] [facility] [place] [address] MCHC Auto mass conc (RBC) 32.3 g/dL Normal 32.0 - 36.0 [facility] Comment on above: Performed By: #### C BC ####[facility] [id number] [place] [address] MCV Auto Entitic volume (RBC) 98 fL Normal 80 - 100 [facility] Comment on above: Performed By: #### C BC ####[facility] REG [id number] [facility] [place] [place] [address] Platelets Auto #/vol (Bld) 323 10*3/uL Normal 150 - 450 [facility] Comment on above: Performed By: #### C BC ####[facility] REG [id number] [place] [address] RBC Auto #/vol (Bld) 3.70 x10E12/L Low 4.00 - 5.20 [facility] Comment on above: Performed By: #### C BC ####[facility] REG [id number] [place] [address] WBC Auto #/vol (Bld) 10.5 10*3/uL Normal 4.4 - 11.3 [facility] Comment on above: Performed By: #### C BC ####[facility] REG [id number] [place] [address] Daily Progress Note-Cardiolo linn 08-27-2017 Protein mass conc Consult Type: subseq uent visit/care Service: Cardiology Subjective Data:KATHERINE JUDGE is a 82 year old Female who is Hospital Day # 2. Just returned from [place], states she feels a little better today, [...] an uneventful night. Objective Data: Objective Information:T KKCYNzG5Inblg16.31791992/789 7%Date/Time08/27 14: 14: 14: 14: 14:57Range(36.7C - [...] thorax symmetricCardiovascular: Regular, rate and rhythm, 1/6 NREEIDA, 2+ equal pulses of theextremities, normal S 1and S 2Gastrointestinal: softly distended. Tender. Hypoactive bowel sounds. Wellhealing midline incision.Musculoskeletal: ROM intact, no joint swelling, normal strengthExtremities: normal extremities, no cyanosis no edema, contusions or wounds, noclubbingNeurological: alert and oriented d9Oqqkzbwsjfnvx: Appropriate mood and behaviorSkin: [place], fair turgor, Warm and dry, no lesions, [...] 20:32NSTEMI (non-ST elevated myocardial infarction): Entered Date: 56-Jfq-837526:25UTI (urinary tract infection), bacterial: Entered Date: 27-Dec-2016 [...] bowel obstruction: Onset Date: 11-Feb-2012, Entered Date: 60-Pzs-818040:56Generalized abdominal pain (finding): Entered Date: 11-Feb-2012 18:56 [...] ST Elevation Myocardial Infarction (NSTEMI): Entered Date: 75-Wsl-523387:29Coronary angioplasty/stent (PCI): Entered Date: 12-Dec-2009 15:30Dyspnea: Entered [...] Objective Data, Assessment and Plan,Signature/Cosignature/A ttestationApril Nam (CHILD DAY CARE TEACHER-CONTROL CABINET ASSEMBLER) (Signed 27-Aug-2017 15:41)Authored: Service, Subjective Data, Objective Data, Assessment and Plan,Signature/Cosignature/A ttestation Last Updated: 28-Aug-2017 06:59 by Ventura Thacker) Normal [facility] Daily Progress Note-Infectio us Diseaseon 08-27-2017 Protein mass conc Service: Infectious Disease Subjective Data:KATHERINE JUDGE is a 82 year old Female who is Hospital Day # 2. no fever, nauseated, abdominal pain, no emesis, no diarrhea. Overnight Events: Patient had an uneventful night. Objective Data: Objective Information:T [id number]/539 7%Date/Time08/27 6: 6: 6: 6: 6:42Range(36.7C - [...] reviewed these laboratory results: Complete Blood Count [[id number] 06:33:00], Basic Metabolic Panel [Drawn 27-Aug-2017 06:33:00],Magnesium, Serum [Drawn 27-Aug-2017 06:33:00], Urinalysis [Drawn 80-Fff-282893:47:00], Urinalysis, Microscopic [Drawn 25-Aug-2017 18:47:00], Lactate, Level[Drawn [...] Updated: 27-Aug-2017 09:31 by Nela Collado) Normal [facility] Daily Progress Note-Medicine on 08-27-2017 Protein mass conc Service: Medicine Rick bjective Data:KATHERINE JUDGE is a 82 year old Female who is Hospital Day # 2. Reports feeling better today, less abdominal distension after NG was placed. Noflatus yet. Overnight Events: Patient had an uneventful night. Objective Data: Objective Information:T [id number]/6597% Date/Time08/27 11: 11: 6: 11: 11:11Range(36.7C - [...] No melena or hematochezia. She presented to [facility] Emergency Department and CT of her abdomen and pelvis was read as showing findings consistentwith small bowel obstruction. She was transferred to [facility]. We have been consulted to [...] 12:54 by Maria Del Carmen Andino) Normal [facility] Daily Progress Note-Surgeryo n 08-27-2017 Protein mass conc Service: Surgery Sub jective Data:KATHERINE JUDGE is a 82 year old Female who is Hospital Day # 2. Additional Information:no flatus yet Objective Data: Objective Information:T SZMFCqN6Zjzsr08.45011088/539 7%Date/Time08/27 6: 6: 6: 6: 6:42Range(36.7C - [...] 20:32NSTEMI (non-ST elevated myocardial infarction): Entered Date: 80-Oqr-504751:25UTI (urinary tract infection), bacterial: Entered Date: 27-Dec-2016 [...] bowel obstruction: Onset Date: 11-Feb-2012, Entered Date: 05-Vws-069556:56Generalized abdominal pain (finding): Entered Date: 11-Feb-2012 18:56 [...] ST Elevation Myocardial Infarction (NSTEMI): Entered Date: 43-Fki-024208:29Coronary angioplasty/stent (PCI): Entered Date: 12-Dec-2009 15:30Dyspnea: Entered [...] Updated: 27-Aug-2017 09:36 by Jessenia Tapia) Normal [facility] EMR ADDONon 08-27-2017 ADDON CONFIRMATION REQUEST REC'D Normal [facility] Comment on above: Performed By: #### E MRAD ####[facility] [id number] [place] [address] MAGNESIUMon 08-27-2017 Magnesium mass conc 1.95 mg/dL Normal 1.60 - 2.40 [facility] Comment on above: Performed By: #### M G ####[address] [address] Admission Risk Screen - Adul ton 08-26-2017 [...] Directive Medicalyes? Advance Directive typeDurable Power of Battery Container Tester for Healthcare? Durable Power of Battery Container Tester AvailabilityDPOA not available now? Durable Power of Battery Container Tester [id number]? Durable Power of Battery Container Tester contact (name and number)Ganga Judge? Advance Directive [...] instruction; written material? Cultural Considerationsnone? Developmental Considerationsnone? Islam Considerationsnone Learning Assessment (Other Learner):? Other learner [...] Spiritual Screen:? Are there any cultural, spiritual, buddhism practices/values/needs that areimportant for us to know?no CAGE:Is this an injured patient at a Trauma Center ([facility] / [place]): no Vaccinations:Vaccination - Influenza Vaccination Screen:? Is [...] Last Updated: 26-Aug-2017 04:19 by Sylvain Gilbert (CINTHYA) [facility] CHEST 1 VIEWon 08-26-2017 CHEST 1 VIEW [...] hernia.Electronically signed by: NYLA PARKER DO Normal [facility] CHEST 1 VIEW Name: KATHERINE JUDGE STUDY: CHEST 1 VIEW; 08/26/2017 1:19 am INDICATION:Nasogastric [...] Electronically signed by: LEANN PATEL MD Normal [facility] CHEST 1 VIEW Name: KATHERINE [...] disease.Electronically signed by: LEANN PATEL MD Normal [facility] Consult-Cardiologyon 018 Consult-Cardiology Service:Service: Car diology Consult:Reason: preop clearance HTN History of Present Illness:HPI:This is an 82-year-old female with history of multiple abdominalsurgeries, 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 [facility] with FTT, nausea, dehydration, and RADHA.Discharged to SNF. [facility] yesterday developed abdominal discomfort andvomiting. Appetite not as goo yesterday. [facility] has had daily BM's. Statesabd. discomfort and distention.Denies CP, fever, chills, no abd blood in stools. Sent to [facility], CT ofher abdomen and pelvis was read as showing findings consistent with small bowelobstruction. [facility] further[facility].Pt is known to me, h/o [...] Confusion? Restoril: Confusion Objective: Objective Information: T [id number]/6996% Date/Time08/26 16:25718 16:29718 5:08718 16:29718 16:29Range(36C - 37.8C ) (78 - 95 ) (16 - 16 ) (146 - 185 )/ (69 - 96 ) (85% -96% )Highest temp of 37.8 C was recorded at 08/26 14:18 Weights7 4:19: Weight in kg (Weight (kg)) 40.67/18 4:19: Weight in lbs ((lbs)) 89.6718 4:19: [...] andreflexes, normal strengthPsychological: Appropriate mood and behaviorSkin: [place], fair turgor, Warm and dry, no lesions, [...] Urine YELLOW Reference Range: STRAW,YELLOWAppearance, Urine HAZYSpecific Sulphur, Urine 1.013pH, Urine 6.0Protein, Urine NEGATIVEGlucose, Urine [...] 22.2 cm2LA Area A2C: 19.3 cm2LA Major [place] A4C: 5.9 cmLA Major [place] A2C: 5.4 cmLA Volume Index: 40.5 ml/m2RA VOLUME BY A/L METHOD: Normal Ranges:RA Vol A4C: 17.8 ml (8.3-19.5ml)RA Vol Index A4C: 11.5 ml/m2RA Area A4C: 9.6 cm2RA Major [place] A4C: 4.4 cmM-MODE MEASUREMENTS: Normal Ranges:Ao Root: [...] amount drg.Possible need for ORprevious records from [facility] obtained and reviewedOffice records obtained and reviewed. [...] Last Updated: 26-Aug-2017 18:16 by Ventura Thacker) Normal [facility] Consult-Infectious Diseaseon 08-26-2017 Consult-Infectious Disease Service:Service: Infectious [...] bowel obstruction (disorder):Acute bowel obstruction: Onset Date: 01-Bzq-3331Zgcrbticbhj abdominal pain (finding):Acute bowel obstruction:Acute bowel obstruction: [...] Confusion? Restoril: Confusion Objective: Objective Information: T [id number]/9390% Date/Time08/26 5: 5: 5: 5: 5:08Range(36C - 36.6C ) (84 - 88 ) (16 - 16 ) (183 - 185 )/ (93 - 95 ) (90% -90% ) Weights7 4:19: Weight in kg (Weight (kg)) 40.67/18 [...] have reviewed these laboratory results: Urinalysis [Drawn 82-Mip-668082:47:00], Urinalysis, Microscopic [Drawn 25-Aug-2017 18:47:00], Lactate, Level[Drawn 25-Aug-2017 18:46:00], Comprehensive Metabolic Panel [Drawn 11-Eof-072591:36:00], Lipase, Serum [Drawn 25-Aug-2017 18:36:00], Troponin I, Serum [Niatn22-Fas-5862 18:36:00], Complete Blood Count + Differential [Drawn 15-Yld-352945:15:00], Basic Metabolic Panel [Drawn 21-Aug-2017 16:22:00], Complete [...] Last Updated: 26-Aug-2017 09:12 by Nela Collado) [facility] Consult-Medicineon 8 Consult-Medicine Service:Service: Med icine Consult:Consult [...] diarrhea. No melena orhematochezia. She presented to [facility] ED and CT of her abdomenand pelvis was read as showing findings consistent with small bowelobstruction. [facility]. We have been consulted to [...] bowel obstruction (disorder):Acute bowel obstruction: Onset Date: 93-Cgu-9804Hlawzdatshp abdominal pain (finding):Acute bowel obstruction: Review Family/Social [...] Ativan: Confusion? Restoril: Confusion Objective: Objective Information:T JMSXBiI2Skrxv56.90519824/959 0%Date/Time08/26 4: 4: 4: 4: 4:19Range(36.6C - [...] Urine YELLOW Reference Range: STRAW,YELLOWAppearance, Urine HAZYSpecific Sulphur, Urine 1.013pH, Urine 6.0Protein, Urine NEGATIVEGlucose, Urine [...] Updated: 26-Aug-2017 09:58 by Diego Obregon) Normal [facility] Discharge Planning Noteon Discharge Planning Note Discharge Needs Assessment:? Discharge Planning Assessment Ibgl17-Jnx-6031? Readmission Within the Last 30 Dayscurrent reason for admission unrelated toprevious admission? Primary Care PhysicianLeigh Garnett Adult Information:? Reason for Admission as Stated by Patientsbo? Primary Support Person During Hospitalizationsammy [phone]? Lives Withspouse? Financial Concernsnone Patient Learning:? Factors that Impact Ability to Learnnone(1) Other Factors:? Functional Screen: In the recent/past 2-4 weeks, patient or family havenoticedno issues that require a rehabilitation consult at this time(2) Discharge Planning:Discharge Plannin08/26/17 A&OX3. Lives with spouse, but recovering at [facility] afterbowel surgery. Normally active in ADL, but very weak after surgery. Hxmultiple abd surgeries. N/G light green returns. NPO, has been N&V be foreadmit. Plan return to SNF when medically cleared. Discussed patient plan ofcare and discharge plans during interdisciplinary rounds. Meghan Haro RN-JANAY 08/27/17 1022 DSC: Referral sent to [facility]. SNF/Return. ADOD iswithin 2 days. Medicare ins. Awaiting facility response. Yaneth JordanDischarge Windows Server Administrator - [phone] 08/27/17 1213 DSC: Response received from the following skilled nursingfacilities: [facility] can accept the patient. Yaneth Jordan DischargeSupport Coordinator - [phone] 08/27/17 N/G, NPO. for KUB today. Does have 55 days left of snf benefit.[facility] able to accept pt when she is medically ready. [facility] and adjust plan as needed. Discussed patient plan ofcare and discharge plans during interdisciplinary rounds. Meghan MONTELONGO 08/28/17 1241 DSC: I attached updates for the facility to review. Clark Discharge Windows Server Administrator - [phone] 08/29/17 1011 DSC_ Updates attached to the facility for reviewEmilia Brand, Discharge Windows Server Administrator, 08/31/17 0919 DSC: Updates attached to the facility for review. Olga Aguerorge Windows Server Administrator [phone] 08/31/17 Should be ready for d/c tomorrow. Diet full liquid and will advance.Will follow pt through hospital stay and adjust plan as needed. Discussedpatient plan of care and discharge plans during interdisciplinary rounds. Virginia MENDES-BC 09/01/17 1456 DSC: Final orders attached and sent to facility. No 7000 needed.Olga Lehman Discharge Windows Server Administrator [phone] 09/01/17 145 PCN: Wink Cutter Operator/Want Ad Clerk notified transport set [id number] cotton picker operator, via stretcher with [facility] providing transport.Keyana Haro, Manufacturing Sales Representative, Final Disposition/Discharge:Dispos ition/Discharge Information: Discharge/Transfer Information:? Discharge/Transfer Date/Posa44-Qyh-5215 15:53? Discharge Modestretcher? Transportation Methodtransportation service? Valuables/Medications/Belong ings Returnedyes? Belongings CommentDischarged to SNF. IV out, tip intact. All questionsanswered. Electronic Signatures:Olga Lehman (COOR) (Signed 01-Sep-2017 14:56)Authored: Discharge Planning Elida Coats (RN) (Signed 01-Sep-2017 15:53)Authored: Final Disposition/DischargeEmilia Brand (COOR) (Signed 29-Aug-2017 10:11)Authored: Discharge Planning Penelope Whipple (CLIN COOR) (Signed 31-Aug-2017 11:56)Authored: Discharge Planning Alex Monson (COOR) (Signed 01-Sep-2017 15:04)Authored: Discharge Planning Yaneth Larson (COOR) (Signed 28-Aug-2017 12:41)Authored: Discharge Planning Note Last Updated: 01-Sep-2017 15:53 by Elida Calderón (RN) References:1. Data Referenced From "5. Education" 08/26/2017 04:14 AM2. Data Referenced From Admission Risk Screen - Adult" 08/26/2017 04:14 AM Normal [facility] History and Physicalon 08-26 History and Physical History of Present Illness:Admission Reason: SBOHPI:82 y.o. WF who had been in her usual state of health until about no, when she developed nausea, followed by vomiting, distention andabdominal pain. No reports of fever or chills. No c/o diarrhea, melena orhematochezia. She initially present to [facility]. Underwent CT of abdomen pelvis that showed findings consistent with SBO. Transferred to [facility] for further management, and admitted to our [...] bowel obstruction (disorder):Acute bowel obstruction: Onset Date: 87-Lri-4719Yqcwh bowel obstruction:Acute bowel obstruction:Generalized abdominal pain (finding): [...] Pruritus, Rash, Ulcer Objective: Objective Information: T UVRMNpS4Ptevg739623529/9390% Date/Time08/26 5: 5: 5: 5: 5:08Range(36C - [...] Immediately returned approx.200ml green bile drainage. To LI.Respiratory/Thorax: LCTA. non-labored.Cardiovascular: Heart RRRGastrointestinal: softly distended. Tender. [...] Urine YELLOW Reference Range: STRAW,YELLOWAppearance, Urine HAZYSpecific Sulphur, Urine 1.013pH, Urine 6.0Protein, Urine NEGATIVEGlucose, Urine [...] Panel 21-Aug-2017 16:22:00 ResultValueLab Comment: Drop off AHA, Phleb, Anngee #[id number] 08/21/2017 psteiGlucose, Serum 108 HNA 139K 4.2CL 101Bicarbonate, Serum 29Anion Gap, Serum 13BUN 17CREAT 0.90GFR-Non 60 AGFR- 73Calcium, Serum 9.3 Complete Blood Count 21-Aug-2017 16:22:00 ResultValueLab Comment: Drop off AHA, Phleb Anngee #3959 08/21/2017 psteiWhite Blood Cell Count [...] bowel obstruction (disorder):Acute bowel obstruction: Onset Date: 80-Kul-8044Arttoneoxyf abdominal pain (finding): Chronic:Fluid overload pulmonary edema:Clostridium difficile infection:Chest pain:Diarrhea: Other Dx/Proc:CHEST PAIN: Description: CHEST PAINUnstable angina/chest pain: Description: Unstable angina/chest painGastrointestinal bleeding: Description: Gastrointestinal bleeding1 Colitis, 2 Abdomen Pain 3 Cholelithiasis: Onset Date: 01-Jxw-8944Iejxq failure: Description: Heart failurePNEUMONIA:Diabetes mellitus: Description: Diabetes [...] care, and discharge plan. Electronic Signatures:Vanessa Rodarte (CHILD DAY CARE TEACHER-CONTROL CABINET ASSEMBLER) (Signed 26-Aug-2017 12:20)Authored: History of Present Illness, Comorbidities, Past Medical/SurgicalHistory, Social History, Allergies, Review of Systems, Objective, Assessmentand Plan, Signatures/Attestation/Certi ficationMaJessenia vasquez) (Signed 26-Aug-2017 14:08)Authored: Signatures/Attestation/Certi fication Last Updated: 26-Aug-2017 14:08 by Jessenia Tapia) Normal [facility] Patient Profile - Adult v2on 08-26-2017 Protein mass conc Profile:Initial Info :How to be AddressedAliceSpoken Language PreferredEnglish (1)Are you currently using the Personal Electronic Health Record or Anyadir EducationCAREnoAre you interested in learning more about [facility] for the management of yourhealthyes, information providedStated Reason for AdmissionAbdominal pain and nausea, got worseArrived Fromemergency departmentPatient BelongingsnoneMedications Brought to Hospitalno General Health:Weight in kg40.6 kilogram(s)Weight in lbs89.6 pound(s)Height in feet5 feetHeight in inches0 inch(es)Height in cm152.4 centimeter(s)BMI (kg/m2)17.48 square meterWeight Methodactual (measured)Scale TypebedHeight Methodstated [facility] Based Care:How would you like to participate [...] Restoril: Drug, Confusion, Active Electronic Signatures:Sylvain Gilbert (CINTHYA) (Signed 26-Aug-2017 04:24)Authored: Profile, Additional Information Last Updated: 26-Aug-2017 04:24 by Sylvain Gilbert (CINTHYA) References:1. Data Referenced From "Patient Profile - Adult v2" 07/26/2017 5:00 PM Normal [facility] CBC AND DIFFERENTIALon 08-25 % AUTOMATED IMMATURE GRAN 0.6 % Normal 0.0 - 0.9 [facility] Comment on above: Result Comment: Perc ent differential counts (%) should be interpreted in the context of the absolute cell counts (cells/L). Performed By: #### L IPID ####[address] [address] % NEUTROPHIL 72.1 % Normal 40.0 - 80.0 [facility] Comment on above: Performed By: #### L IPID ####[address] [address] Basophils/100 WBC Auto (Bld) 0.4 % Normal 0.0 - 2.0 [facility] Comment on above: Performed By: #### L IPID ####[address] [address] Basophils/100 WBC Auto (Bld) 0.03 x10E9/L Normal 0.00 - 0.10 [facility] Comment on above: Performed By: #### L IPID ####[address] [address] Eosinophils Auto #/vol (Bld) 0.02 10*3/uL Normal 0.00 - 0.40 [facility] Comment on above: Performed By: #### L IPID ####[address] [address] Eosinophils/100 WBC Auto (Bld) 0.2 % Normal 0.0 - 6.0 [facility] Comment on above: Performed By: #### L IPID ####[address] [address] Erythrocyte distribution width Auto Ratio (RBC) 14.3 % Normal 11.5 - 14.5 [facility] Comment on above: Performed By: #### L IPID ####[address] [address] Hematocrit Auto Volume Fraction (Bld) 44.9 % Normal 36.0 - 46.0 [facility] Comment on above: Performed By: #### L IPID ####[address] [address] Hemoglobin mass conc (Bld) 15.0 g/dL Normal 12.0 - 16.0 [facility] Comment on above: Performed By: #### L IPID ####[address] [address] Lymphocytes Auto #/vol (Bld) 1.89 10*3/uL Normal 0.80 - 3.00 [facility] Comment on above: Performed By: #### L IPID ####[address] [address] Lymphocytes/100 WBC Auto (Bld) 22.5 % Normal 13.0 - 44.0 [facility] Comment on above: Performed By: #### L IPID ####[address] [address] MCHC Auto mass conc (RBC) 33.4 g/dL Normal 32.0 - 36.0 [facility] Comment on above: Performed By: #### L IPID ####[address] [address] MCV Auto Entitic volume (RBC) 97 fL Normal 80 - 100 [facility] Comment on above: Performed By: #### L IPID ####[address] [address] Monocytes Auto #/vol (Bld) 0.35 10*3/uL Normal 0.05 - 0.80 [facility] Comment on above: Performed By: #### L IPID ####[address] [address] Monocytes/100 WBC Auto (Bld) 4.2 % Normal 2.0 - 10.0 [facility] Comment on above: Performed By: #### L IPID ####[address] [address] Neutrophils Auto #/vol (Bld) 6.07 10*3/uL High 1.60 - 5.50 [facility] Comment on above: Performed By: #### L IPID ####[address] [address] Platelets Auto #/vol (Bld) 355 10*3/uL Normal 150 - 450 [facility] Comment on above: Performed By: #### L IPID ####[address] [address] RBC Auto #/vol (Bld) 4.64 x10E12/L Normal 4.00 - 5.20 [facility] Comment on above: Performed By: #### L IPID ####[address] [address] WBC Auto #/vol (Bld) 8.4 10*3/uL Normal 4.4 - 11.3 [facility] Comment on above: Performed By: #### L IPID ####[address] [address] COMPREHENSIVE PANELon 2017 Albumin mass conc 3.7 g/dL Normal 3.4 - 5.0 [facility] Comment on above: Performed By: #### L IPID ####[address] [address] ALP enzyme act/vol 75 U/L Normal 33 - 136 [facility] Comment on above: Performed By: #### L IPID ####[address] [address] ALT enzyme act/vol 16 U/L Normal 7 - 45 [facility] Comment on above: Result Comment: Daniel ents treated with Sulfasalazine may generate falsely decreased results for ALT. Performed By: #### L IPID ####[address] [address] Anion gap 3 molar conc 17 mmol/L Normal 10 - 20 [facility] Comment on above: Performed By: #### L IPID ####[address] [address] AST enzyme act/vol 19 U/L Normal 9 - 39 [facility] Comment on above: Performed By: #### L IPID ####[address] [address] Bilirubin mass conc 0.6 mg/dL Normal 0.0 - 1.2 [facility] Comment on above: Performed By: #### L IPID ####[facility] [place] [address] Calcium mass conc 10.3 mg/dL Normal 8.6 - 10.3 [facility] Comment on above: Performed By: #### L IPID ####[address] [place] [address] Chloride molar conc 99 mmol/L Normal 98 - 107 [facility] Comment on above: Performed By: #### L IPID ####[address] [place] [address] Creatinine mass conc 0.91 mg/dL Normal 0.50 - 1.05 [facility] Comment on above: Performed By: #### L IPID ####[address] [address] GFR- AM. 71 mL/min/1.73m2 Normal >60 [facility] Comment on above: Result Comment: CALC ULATIONS OF ESTIMATED GFR ARE PERFORMED USING THE MDRD STUDY EQUATION FOR THE IDMS-TRACEABLE CREATININE METHODS. CLIN CHEM 2007;53:766-72 Performed By: #### L IPID ####[address] [address] GFR-NON AM. 59 mL/min/1.73m2 Abnormal >60 [facility] Comment on above: Performed By: #### L IPID ####[address] [place] [address] Glucose mass conc 125 mg/dL High 74 - 99 [facility] Comment on above: Performed By: #### L IPID ####[address] [place] [address] HCO3 molar conc (Bld) 28 mmol/L Normal 21 - 32 [facility] Comment on above: Performed By: #### L IPID ####[address] [address] Potassium molar conc 3.9 mmol/L Normal 3.5 - 5.3 [facility] Comment on above: Performed By: #### L IPID ####[address] [address] Protein mass conc 8.3 g/dL High 6.4 - 8.2 [facility] Comment on above: Performed By: #### L IPID ####[facility] [place] [address] Sodium molar conc 140 mmol/L Normal 136 - 145 [facility] Comment on above: Performed By: #### L IPID ####[facility] [place] [address] Urea nitrogen mass conc 14 mg/dL Normal 6 - 23 [facility] Comment on above: Performed By: #### L IPID ####[facility] [place] [address] CT ABDOMEN AND PELVIS WITH C ONTRASTon [...] Electronically signed by: LEANN PATEL MD Normal [facility] LACTATEon 08-25-2017 Lactate molar conc 0.8 mmol/L Normal 0.4 - 2.0 [facility] Comment on above: Result Comment: Hali puncture immediately after or during the administration of Metamizole may lead to falsely low results. Testing should be performed immediately prior to Metamizole dosing. Performed By: #### L IPID ####[address] [place] [address] LIPASEon 08-25-2017 Lipase enzyme act/vol 51 U/L Normal 9 - 82 [facility] Comment on above: Result Comment: Hali puncture immediately after or during the administration of Metamizole may lead to falsely low results. Testing should be performed immediately prior to Metamizole dosing. Performed By: #### L IPID ####[address] [place] [address] Provider Note - EDon 018 Protein mass conc Time Seen:? Time Mvmo91-Urp-8525 17:58 Triage Vital Signs:? Triage Information Most [...] she had a surgerybecause her bile was "twisted". She is here complaining of pain in [...] Signs:? Objective Information T PRBP SpO2O2(LPM) %FiO2 Wfhasp94-Qqg-5285 18:06:00-797241307/81 95 room air, no respiratorysupport Review of [...] labs CT/MRI results. Handoff Date/Time: 25-Aug-2017 19:00. /Provider Estelita is/are the receiving Physician/LIP/Resident. Diagnoses/Visit Problems:? Small bowel obstruction: DISCHARGE DISPOSITION:? Disposition: transferred? Facility Name (1): [facility]? Name of 1st Consulting Physician: Willie? Was Patient Accepted in Transfer?: yes CONDITION ON DISPO:? Condition on Dispositionstable MEDICATION RECONCILIATION/DISCHARGE MEDS:* Outpatient Medication Status not yet specified Attestation:CRITICAL CARE:? Is This a Critically Ill Patientno Electronic Signatures:Finesse Pineda) (Signed 25-Aug-2017 18:53)Authored: Time Seen / ED [...] by Spencer Hardy) References:1. Data Referenced From "Triage - ED" 08/25/2017 6:06 PM Normal [facility] Risk Screen - Adult Emergenc yon 08-25-2017 Risk Screen - Adult Emergency Preferred Language:Preferred Language:? Preferred Language for Discussing Health Care (patient/designee)Kazakh Advanced Directives:? Advance Directive Medicalno Family Violence [...] Learning Preferencesindividual instruction? Cultural Considerationsnone? Developmental Considerationsnone? Islam Considerationsnone Learning Assessment (Other Learner):Learning Assessment (Other [...] an injured patient at a Trauma Center ([facility] / [facility]): no Electronic Signatures:Mora Owens (RN) (Signed 25-Aug-2017 19:06)Authored: Preferred Language, Advanced Directives, Family Violence Adult,Suicide / Depression, Learning Assessment (Patient), Learning Assessment (OtherLearner), Fall Risk Adult, Pressure Injury, Respiratory / Cough /TB,Smoking/Social History (Required age 13 or older), CAGE Last Updated: 25-Aug-2017 19:06 by Mora Owens (RN) Normal [facility] TROPONIN Ion 08-25-2017 Troponin I.cardiac mass conc ng/mL Normal 0.00 - 0.03 [facility] Comment on above: [...] testing is performed using differenttesting methodology at [facility] than at [facility]. Direct result comparisons should onlybe made within the same method. Performed By: #### L IPID ####[facility] [place] [address] Triage - EDon 08-25-2017 INR Coag RelTime (Bld) Pain:Pain Rating (0-10): Rest4 Chart Review:CHIEF COMPLAINT KATHERINE JUDGE is a Female patient with a chief complaint of abdominal pain.Onset of the Complaint: 14-Lyx-6435Mdrmwc Date/Time: 25-Aug-2017 17:59Pain Rating (0-10): Rest: 4Vital [...] Last Updated: 25-Aug-2017 18:08 by Obdulia Perea (CINTHYA PRN) Normal [facility] UA MICROSCOPICon 08-25-2017 CA OXALATE CRYSTAL 1+ /HPF Normal [facility] Comment on above: Performed By: #### L IPID ####[address] [place] [address] HYALINE CAST 1+ /LPF Abnormal [facility] Comment on above: Performed By: #### L IPID ####[address] [place] [address] MUCUS FEW Normal [facility] Comment on above: Performed By: #### L IPID ####[address] [place] [address] RBC 3 /HPF Abnormal 0-5 [facility] Comment on above: Performed By: #### L IPID ####[address] [place] [address] SQUAMOUS EPITH. CELLS 1 /HPF Normal [facility] Comment on above: Performed By: #### L IPID ####[address] [place] [address] WBC 4 /HPF Abnormal 0-5 [facility] Comment on above: Performed By: #### L IPID ####[address] [place] [address] URINALYSISon 08-25-2017 APPEARANCE HAZY Normal CLEAR [facility] Comment on above: Performed By: #### L IPID ####[address] [place] [address] BILIRUBIN Negative Normal NEGATIVE [facility] Comment on above: Performed By: #### L IPID ####[facility] [facility] [place] [address] BLOOD Negative Normal NEGATIVE [facility] Comment on above: Performed By: #### L IPID ####[address] [facility] [place] [address] COLOR YELLOW Normal STRAW,YELL OW [facility] Comment on above: Performed By: #### L IPID ####[address] [facility] [place] [address] GLUCOSE Negative Normal NEGATIVE [facility] Comment on above: Performed By: #### L IPID ####[address] [place] [address] KETONES Negative Normal NEGATIVE [facility] Comment on above: Performed By: #### L IPID ####[address] [facility] [place] [place] [address] LEUKOCYTE ESTERASE TRACE Abnormal NEGATIVE [facility] Comment on above: Performed By: #### L IPID ####[address] [facility] [place] [address] NITRITE Negative Normal NEGATIVE [facility] Comment on above: Performed By: #### L IPID ####[address] [place] [address] pH 6.0 Normal 5.0 - 8.0 [facility] Comment on above: Performed By: #### L IPID ####[address] [place] [address] Protein mass conc Negative Normal NEGATIVE [facility] Comment on above: Performed By: #### L IPID ####[address] [place] [address] SPECIFIC GRAVITY 1.013 Normal 1.005 - 1.035 [facility] Comment on above: Performed By: #### L IPID ####[address] [place] [address] UROBILINOGEN <2.0 Normal 0.0 - 1.9 [facility] Comment on above: Performed By: #### L IPID ####[address] [place] [address] BASIC METABOLIC PANELon 08-09 Anion gap 3 molar conc 13 mmol/L Normal 10 - 20 [facility] Comment on above: Order Comment: Drop off AHA, Phleb, Anngee #8969 08/21/2017 pstei Performed By: #### L IPID ####[address] [place] [address] Calcium mass conc 9.3 mg/dL Normal 8.6 - 10.3 [facility] Comment on above: Order Comment: Drop off AHA, Phleb, Anngee #1489 08/21/2017 pstei Performed By: #### L IPID ####[address] [place] [address] Chloride molar conc 101 mmol/L Normal 98 - 107 [facility] Comment on above: Order Comment: Drop off AHA, Phleb, Anngee #1612 08/21/2017 pstei Performed By: #### L IPID ####[address] [address] Creatinine mass conc 0.90 mg/dL Normal 0.50 - 1.05 [facility] Comment on above: Order Comment: Drop off AHA, Phleb, Anngee #3689 08/21/2017 pstei Performed By: #### L IPID ####[address] [address] GFR- AM. 73 mL/min/1.73m2 Normal >60 [facility] Comment on above: Order Comment: Drop off AHA, Phleb, Anngee #8378 08/21/2017 pstei Result Comment: CALC ULATIONS OF ESTIMATED GFR ARE PERFORMED USING THE MDRD STUDY EQUATION FOR THE IDMS-TRACEABLE CREATININE METHODS. CLIN CHEM 2007;53:766-72 Performed By: #### L IPID ####[address] [place] [address] GFR-NON AM. 60 mL/min/1.73m2 Abnormal >60 [facility] Comment on above: Order Comment: Drop off AHA, Phleb, Anngee #3413 08/21/2017 pstei Performed By: #### L IPID ####[address] [place] [address] Glucose mass conc 108 mg/dL High 74 - 99 [facility] Comment on above: Order Comment: Drop off AHA, Phleb, Anngee #3958 08/21/2017 pstei Performed By: #### L IPID ####[address] [place] [address] HCO3 molar conc (Bld) 29 mmol/L Normal 21 - 32 [facility] Comment on above: Order Comment: Drop off AHA, Phleb, Anngee #3954 08/21/2017 pstei Performed By: #### L IPID ####[address] [address] Potassium molar conc 4.2 mmol/L Normal 3.5 - 5.3 [facility] Comment on above: Order Comment: Drop off AHA, Phleb, Anngee #3953 08/21/2017 pstei Performed By: #### L IPID ####[address] [address] Sodium molar conc 139 mmol/L Normal 136 - 145 [facility] Comment on above: Order Comment: Drop off AHA, Phleb, Anngee #39508/21/2017 pstei Performed By: #### L IPID ####[address] [address] Urea nitrogen mass conc 17 mg/dL Normal 6 - 23 [facility] Comment on above: Order Comment: Drop off AHA, Phleb, Anngee #9921 08/21/2017 pstei Performed By: #### L IPID ####[address] [address] CBCon 08-21-2017 Erythrocyte distribution width Auto Ratio (RBC) 14.4 % Normal 11.5 - 14.5 [facility] Comment on above: Order Comment: Drop off AHA, Phleb, Anngee #3952 08/21/2017 pstei Performed By: #### L IPID ####[address] [address] Hematocrit Auto Volume Fraction (Bld) 37.2 % Normal 36.0 - 46.0 [facility] Comment on above: Order Comment: Drop off AHA, Phleb, Anngee #2227 08/21/2017 pstei Performed By: #### L IPID ####[address] [place] [address] Hemoglobin mass conc (Bld) 12.0 g/dL Normal 12.0 - 16.0 [facility] Comment on above: Order Comment: Drop off AHA, Phleb, Anngee #395 08/21/2017 pstei Performed By: #### L IPID ####[address] [address] MCHC Auto mass conc (RBC) 32.3 g/dL Normal 32.0 - 36.0 [facility] Comment on above: Order Comment: Drop off AHA, Phleb, Anngee #39508/21/2017 pstei Performed By: #### L IPID ####[address] [address] MCV Auto Entitic volume (RBC) 100 fL Normal 80 - 100 [facility] Comment on above: Order Comment: Drop off AHA, Phleb, Anngee #39508/21/2017 pstei Performed By: #### L IPID ####[address] [address] Platelets Auto #/vol (Bld) 322 10*3/uL Normal 150 - 450 [facility] Comment on above: Order Comment: Drop off AHA, Phleb, Anngee #39508/21/2017 pstei Performed By: #### L IPID ####[address] [address] RBC Auto #/vol (Bld) 3.71 x10E12/L Low 4.00 - 5.20 [facility] Comment on above: Order Comment: Drop off AHA, Phleb, Anngee #39508/21/2017 pstei Performed By: #### L IPID ####[address] [address] WBC Auto #/vol (Bld) 8.2 10*3/uL Normal 4.4 - 11.3 [facility] Comment on above: Order Comment: Drop off AHA, Phleb, Anngee #39508/21/2017 pstei Performed By: #### L IPID ####[address] [address] BASIC METABOLIC PANELon 06-2 Anion gap 3 molar conc 11 mmol/L Normal 10 - 20 [facility] Comment on above: Performed By: #### L IPID ####[address] [address] Calcium mass conc 8.2 mg/dL Low 8.6 - 10.3 [facility] Comment on above: Performed By: #### L IPID ####[address] [address] Chloride molar conc 107 mmol/L Normal 98 - 107 [facility] Comment on above: Performed By: #### L IPID ####[address] [address] Creatinine mass conc 0.82 mg/dL Normal 0.50 - 1.05 [facility] Comment on above: Performed By: #### L IPID ####[address] [address] GFR- AM. >60 Normal >60 [facility] Comment on above: Result Comment: CALC ULATIONS OF ESTIMATED GFR ARE PERFORMED USING THE MDRD STUDY EQUATION FOR THE IDMS-TRACEABLE CREATININE METHODS. CLIN CHEM 2007;53:766-72 Performed By: #### L IPID ####[address] [address] GFR-NON AM. >60 Normal >60 [facility] Comment on above: Performed By: #### L IPID ####[address] [address] Glucose mass conc 92 mg/dL Normal 74 - 99 [facility] Comment on above: Performed By: #### L IPID ####[address] [address] HCO3 molar conc (Bld) 26 mmol/L Normal 21 - 32 [facility] Comment on above: Performed By: #### L IPID ####[address] [address] Potassium molar conc 3.5 mmol/L Normal 3.5 - 5.3 [facility] Comment on above: Performed By: #### L IPID ####[address] [place] [address] Sodium molar conc 140 mmol/L Normal 136 - 145 [facility] Comment on above: Performed By: #### L IPID ####[address] [address] Urea nitrogen mass conc 11 mg/dL Normal 6 - 23 [facility] Comment on above: Performed By: #### L IPID ####[address] [address] CBCon 07-29-2017 Erythrocyte distribution width Auto Ratio (RBC) 13.0 % Normal 11.5 - 14.5 [facility] Comment on above: Performed By: #### L IPID ####[address] [address] Hematocrit Auto Volume Fraction (Bld) 33.6 % Low 36.0 - 46.0 [facility] Comment on above: Performed By: #### L IPID ####[address] [address] Hemoglobin mass conc (Bld) 10.8 g/dL Low 12.0 - 16.0 [facility] Comment on above: Performed By: #### L IPID ####[address] [address] MCHC Auto mass conc (RBC) 32.1 g/dL Normal 32.0 - 36.0 [facility] Comment on above: Performed By: #### L IPID ####[address] [address] MCV Auto Entitic volume (RBC) 103 fL High 80 - 100 [facility] Comment on above: Performed By: #### L IPID ####[address] [address] Platelets Auto #/vol (Bld) 252 10*3/uL Normal 150 - 450 [facility] Comment on above: Performed By: #### L IPID ####[address] [address] RBC Auto #/vol (Bld) 3.25 x10E12/L Low 4.00 - 5.20 [facility] Comment on above: Performed By: #### L IPID ####[facility] [place] [address] WBC Auto #/vol (Bld) 6.3 10*3/uL Normal 4.4 - 11.3 [facility] Comment on above: Performed By: #### L IPID ####[address] [place] [address] CLOST.DIFF.TOXIN,PCRon 07-29 CLOST.DIFF.TOXIN,PCR NOT DETECTED Normal Not Detected [facility] Comment on above: [...] 7 days. Performed By: #### L IPID ####[address] [place] [address] Daily Progress Note-Surgeryo n 07-29-2017 Protein mass conc Service: Surgery Sub jective Data:KATHERINE JUDGE is a 82 year old Female who is Hospital Day # 4. MORE AWAKE / TOLERATING PO / C DIFF NEGATIVE. Objective Data: Objective Information:T [id number]/739 7%Date/Time07/29 6: 6: 6: 6: 6:40Range(36.6C - [...] Last Updated: 29-Jul-2017 08:52 by Manny Arana) Normal [facility] Discharge Planning Noteon Discharge Planning Note Discharge Needs Assessment:? Discharge Planning Assessment [id number]? Discharge Planning Assessment Completed bySom Chaudhari RNKRISTYN Patient Learning:? Factors that Impact Ability to Learnnone(1) Other Factors:? Functional Screen: In the recent/past 2-4 weeks, patient or family havenoticednew difficulty in safely performing activities of daily living, asignificant change in function affecting balance, or the ability to safelytransfer or ambulate (And is not on bedrest)(2) Discharge Needs:? [facility]:Discharge Plannin07/29/17 Spoke with patient with family present, patient stated ok to talk infront of family, patient and family in agreement to return to [facility] continue skilled at [facility]. Referral sent via [facility] [place] [facility] patient at discharge, no precert required. Willcontinue to follow. Som Chaudhari RNKRISTYN 07/29/17 Discharge Orders sent via [employer] to [facility]. Som Escoto 07/29/17 1427 [facility]. [facility] also going to go to [facility] to help pt. get settled. Report alsocalled to nurse Espinoza at [facility] per resourse nurseJoy. LEIA Wallace Final Disposition/Discharge:Dispos ition/Discharge Information: Discharge/Transfer Information:? Discharge/Transfer Date/Rmiy74-Zun-2673 14:27 Electronic Signatures:France Bean (RN) (Signed 29-Jul-2017 14:45)Authored: Discharge Planning Note, Final Disposition/DischargeSom Jama (CLIN COOR) (Signed 29-Jul-2017 11:19)Authored: Discharge Planning Note Last Updated: 29-Jul-2017 14:45 by France Bean (RN) References:1. Data Referenced From "5. Education" 07/26/2017 05:07 PM2. Data Referenced From Admission Risk Screen - Adult" 07/26/2017 05:07 PM Normal [facility] Discharge Gaiyuua4tg 06-20-2 018 Protein mass conc Discharge Orders:Ant icipated Discharge Date:? Anticipated Discharge [id number]-5682 Problem List: Admitting Dx:? Acute kidney injury: [...] Review of Medication Reconciliation and Orders Completedby CHILD DAY CARE TEACHER? Reviewing ProviderPaGIANNA Gardner at 29-Jul-2017 13:51:52 Gold Form - Nursing Summary:Special Treatments/Procedures (in past 14 days):? Chemotherapyno? Dialysisno? IV Medicationno? Oxygen Therapyno? Transfusionsno? Feverno? Radiationno? Ventilatorno? Tracheostomyno? Suctioningno Nutrition:? Nutritional Statusfeeds self, good set up? Nutrition CommentBoost Sensory/Comfort:? Visionadequate? Hearingadequate? Speechclear? Painno Elimination:? Bladdercontinent, occ. incont.? Bowelcontinent? Last Bowel Zmbefobw12-Zuj-3347? Toiletingtoilet Safety:? Siderailsyes? Siderails Number/ReasonSafety? Restraintsno? Sitterno? Fall Riskprevious falls, weakness Medication/Hygiene/Mobility: ? Medication Administrationassist? Bathingassist? Dressingassist? Bed Mobilitysupervision only? Wheelchairassist? Transfersassist? Ambulationassist Gold Form - Tree Tapping Laborer Summary:Referral Information:? Referral [facility]? Referring Facility [facility]? Contact VeeSom Chaudhari CC? Contact Phone [phone] Electronic Signatures:Nima Teixeira (RN) (Signed 29-Jul-2017 13:45)Authored: Gold Form - Nursing SummarySom Chaudhari (CLIN COOR) (Signed 29-Jul-2017 07:48)Authored: Gold Form - Tree Tapping Laborer SummaryValerie Jiang) (Signed 29-Jul-2017 10:13)Authored: Discharge OrdersAlex Tillman (CHILD DAY CARE TEACHER-CONTROL CABINET ASSEMBLER) (Signed 29-Jul-2017 13:51)Authored: Discharge Orders, Gold Form Orders, Provider FINAL REVIEW of Orders Last Updated: 29-Jul-2017 13:51 by Alex Tillman (CHILD DAY CARE TEACHER-CONTROL CABINET ASSEMBLER) Normal [facility] MAGNESIUMon 07-29-2017 Magnesium mass conc 1.38 mg/dL Low 1.60 - 2.40 [facility] Comment on above: Performed By: #### L IPID ####[facility] [place] [address] BASIC METABOLIC PANELon 07-10 Anion gap 3 molar conc 6 mmol/L Low [facility] Comment on above: Performed By: #### L IPID ####[facility] [place] [address] Calcium mass conc 9.0 mg/dL Normal 8.6 - 10.3 [facility] Comment on above: Performed By: #### L IPID ####[address] [place] [address] Chloride molar conc 108 mmol/L High 98 - 107 [facility] Comment on above: Performed By: #### L IPID ####[address] [place] [address] Creatinine mass conc 1.00 mg/dL Normal 0.50 - 1.05 [facility] Comment on above: Performed By: #### L IPID ####[address] [address] GFR- AM. 64 mL/min/1.73m2 Normal >60 [facility] Comment on above: Result Comment: CALC ULATIONS OF ESTIMATED GFR ARE PERFORMED USING THE MDRD STUDY EQUATION FOR THE IDMS-TRACEABLE CREATININE METHODS. CLIN CHEM 2007;53:766-72 Performed By: #### L IPID ####[address] [place] [address] GFR-NON AM. 53 mL/min/1.73m2 Abnormal >60 [facility] Comment on above: Performed By: #### L IPID ####[address] [place] [address] Glucose mass conc 92 mg/dL Normal 74 - 99 [facility] Comment on above: Performed By: #### L IPID ####[address] [place] [address] HCO3 molar conc (Bld) 30 mmol/L Normal 21 - 32 [facility] Comment on above: Performed By: #### L IPID ####[address] [place] [address] Potassium molar conc 3.3 mmol/L Low 3.5 - 5.3 [facility] Comment on above: Performed By: #### L IPID ####[address] [address] Sodium molar conc 141 mmol/L Normal 136 - 145 [facility] Comment on above: Performed By: #### L IPID ####[facility] [place] [address] Urea nitrogen mass conc 19 mg/dL Normal 6 - 23 [facility] Comment on above: Performed By: #### L IPID ####[facility] [place] [address] BONE SCAN/ WHOLE BODYon 07-10 BONE SCAN/ [...] a normal variation.This study was interpreted at [facility]. Electronically signed by: MICHEAL AGUIRRE MD Normal [facility] CBCon 07-28-2017 Erythrocyte distribution width Auto Ratio (RBC) 13.1 % Normal 11.5 - 14.5 [facility] Comment on above: Performed By: #### L IPID ####[address] [place] [address] Hematocrit Auto Volume Fraction (Bld) 30.5 % Low 36.0 - 46.0 [facility] Comment on above: Performed By: #### L IPID ####[address] [address] Hemoglobin mass conc (Bld) 9.5 g/dL Low 12.0 - 16.0 [facility] Comment on above: Performed By: #### L IPID ####[address] [address] MCHC Auto mass conc (RBC) 31.1 g/dL Low 32.0 - 36.0 [facility] Comment on above: Performed By: #### L IPID ####[address] [address] MCV Auto Entitic volume (RBC) 103 fL High 80 - 100 [facility] Comment on above: Performed By: #### L IPID ####[address] [address] Platelets Auto #/vol (Bld) 247 10*3/uL Normal 150 - 450 [facility] Comment on above: Performed By: #### L IPID ####[address] [address] RBC Auto #/vol (Bld) 2.96 x10E12/L Low 4.00 - 5.20 [facility] Comment on above: Performed By: #### L IPID ####[address] [address] WBC Auto #/vol (Bld) 5.4 10*3/uL Normal 4.4 - 11.3 [facility] Comment on above: Performed By: #### L IPID ####[facility] [place] [address] Daily Progress Note-Medicine on 07-28-2017 Protein mass [...] an uneventful night. Objective Data: Objective Information:T HPPBIaO6Suwrh81.73039276/769 6%Date/Time07/28 6: 6: 6:4907/28 6:4907/28 6:49Range(36.6C - 37.2C ) (68 - 70 [...] Oral Daily16. Simvastatin: 40 mg Oral At Xuqgffq74. tiZANidine: 2 mg Oral Every 24 Hours PRN Medications ---- 1. Acetaminophen: 650 mg Oral Every 4 Hours2. Bisacodyl Enteric Coated: 5 mg Oral Once3. Magnesium Hydroxide -Al Hydrox -Simethicone Oral Liquid: 30 mL OralEvery 6 Hours4. traMADol: 50 mg Oral Every 6 Hours Recent Lab Results: Results:Complete Blood Uotqq60-Gkk-0440 08:25:00 ResultValueReference RangeWhite Blood Cell Count5.44.4 - 11.3 x10E9/LRed Blood Cell Count2.96 L4.00 - 5.20 x10E12/LHGB9.5 L12.0 - 16.0 g/dLHCT30.5 L36.0 - 46.0 %GWK249 H80 - 100 cGFUGS00.1 L32.0 - 36.0 g/cHCRA587474 - 450 x10E9/LRDW-CV13.111.5 - 14.5 % Basic Metabolic Gqukw71-Skc-8786 08:25:00 ResultValueReference RangeGlucose, Mkoie9427 - 99 mg/xXQA041872 - 145 mmol/LK3.3 L3.5 - 5.3 mmol/OQO487 H98 - 107 mmol/LBicarbonate, Qmxpk1572 - 32 mmol/LAnion Gap, Serum6 L10 - 20 mmol/VTAY638 - 23 mg/dLCREAT1.000.50 - 1.05 mg/dLGFR-Non Fulakohb45 A>60 mL/min/1.31q0DSB-Isgzylv Ujipsogp79>60 mL/min/1.70m6Xpyopuo, Serum9.08.6 - 10.3 mg/dL Assessment and Plan:Assessment: [...] Updated: 28-Jul-2017 17:01 by Valerie Jiang) Normal [facility] BASIC METABOLIC PANELon 06-1 Anion gap 3 molar conc 9 mmol/L Low 10 - 20 [facility] Comment on above: Performed By: #### L IPID ####[facility] [place] [address] Calcium mass conc 10.9 mg/dL High 8.6 - 10.3 [facility] Comment on above: Performed By: #### L IPID ####[facility] [place] [address] Chloride molar conc 105 mmol/L Normal 98 - 107 [facility] Comment on above: Performed By: #### L IPID ####[facility] [place] [address] Creatinine mass conc 1.47 mg/dL High 0.50 - 1.05 [facility] Comment on above: Performed By: #### L IPID ####[address] [address] GFR- AM. 41 mL/min/1.73m2 Abnormal >60 [facility] Comment on above: Result Comment: CALC ULATIONS OF ESTIMATED GFR ARE PERFORMED USING THE MDRD STUDY EQUATION FOR THE IDMS-TRACEABLE CREATININE METHODS. CLIN CHEM 2007;53:766-72 Performed By: #### L IPID ####[address] [address] GFR-NON AM. 34 mL/min/1.73m2 Abnormal >60 [facility] Comment on above: Performed By: #### L IPID ####[address] [address] Glucose mass conc 91 mg/dL Normal 74 - 99 [facility] Comment on above: Performed By: #### L IPID ####[address] [address] HCO3 molar conc (Bld) 29 mmol/L Normal 21 - 32 [facility] Comment on above: Performed By: #### L IPID ####[address] [address] Potassium molar conc 3.9 mmol/L Normal 3.5 - 5.3 [facility] Comment on above: Performed By: #### L IPID ####[address] [address] Sodium molar conc 139 mmol/L Normal 136 - 145 [facility] Comment on above: Performed By: #### L IPID ####[address] [place] [address] Urea nitrogen mass conc 33 mg/dL High 6 - 23 [facility] Comment on above: Performed By: #### L IPID ####[address] [address] CBCon 07-27-2017 Erythrocyte distribution width Auto Ratio (RBC) 13.2 % Normal 11.5 - 14.5 [facility] Comment on above: Performed By: #### L IPID ####[place] [address] Hematocrit Auto Volume Fraction (Bld) 31.3 % Low 36.0 - 46.0 [facility] Comment on above: Performed By: #### L IPID ####[address] [address] Hemoglobin mass conc (Bld) 9.8 g/dL Low 12.0 - 16.0 [facility] Comment on above: Performed By: #### L IPID ####[place] [address] MCHC Auto mass conc (RBC) 31.3 g/dL Low 32.0 - 36.0 [facility] Comment on above: Performed By: #### L IPID ####[address] [address] MCV Auto Entitic volume (RBC) 105 fL High 80 - 100 [facility] Comment on above: Performed By: #### L IPID ####[address] [address] Platelets Auto #/vol (Bld) 241 10*3/uL Normal 150 - 450 [facility] Comment on above: Performed By: #### L IPID ####[address] [address] RBC Auto #/vol (Bld) 2.99 x10E12/L Low 4.00 - 5.20 [facility] Comment on above: Performed By: #### L IPID ####[address] WBC Auto #/vol (Bld) 6.3 10*3/uL Normal 4.4 - 11.3 [facility] Comment on above: Performed By: #### L IPID ####[address] [address] Consulton 07-27-2017 Consult Service:Consult:Cons ult requested by (Attending Name): Joy: PATIENT KNOWN TO ME / S/P RIGHT COLECTOMY FOR CECAL VOLVULUS / History of Present Illness:HPI:PATIENT 24 DAYS S/P RIGHT COLECTOMY FOR CECAL VOLVULUS / WAS [facility] AND DOINGRESONABLE WELL / NOTED TO BE [...] bowel obstruction (disorder):Acute bowel obstruction: Onset Date: 32-Vjf-6435Vrxzgoimrgs abdominal pain (finding):Acute bowel obstruction:Acute bowel obstruction: [...] Confusion? Restoril: Confusion Objective: Objective Information: T KKGBUiY3Kkral08.07476788/659 7%Date/Time07/26 21: 21: 21: 21: 21:00Range(36.7C - [...] reviewed these laboratory results: Complete Blood Count [Yjaai26-Auf-0715 06:25:00], Basic Metabolic Panel [Drawn 27-Jul-2017 06:25:00],Comprehensive [...] Updated: 27-Jul-2017 07:34 by Manny Arana) Normal [facility] History and Physicalon 07-27 History and Physical History of Present Illness:Admission Reason: Encephalopathy; HypercalcemiaHPI:Ms. Judge is an 82 year old female who presented to [facility] dueto altered mental status. Patient was seen [...] right colectomy [address] Arana for cecalvolvulus. She went to a SNF [...] lead 3 and aVF.Medications: Cipro, IV bolus i0Dljllcf was admitted to med surg for further medical management. Past Medical/Surgical History:Gastrocutaneous fistulaConstipationIleusExpl oratory laparotomyAnemiaTransient ischemic colitis (disorder)Protein malnutrition unspecified (disorder)Hypokalemia (disorder)Magnesium deficiencyColitis (disorder)Small bowel obstruction (disorder)Acute bowel obstruction: Onset Date: 65-Plw-4213Oqkmkyjitta abdominal pain (finding)CAD, status post 2013 circumflex [...] Confusion? Restoril: Confusion Objective: Objective Information: T EBLRTlC2Hagfw26.15470524/619 8%Date/Time07/27 6:5807/27 6:5807/27 6:5818 6:5818 6:58Range(36.7C - 36.8C ) (62 - 71 [...] Oral Daily13. Simvastatin: 40 mg Oral At Iwjpqje16. [employer] Tc 99m Medronate (MDP - Radiology [...] 6 Hours Recent Lab Results: Results:Complete Blood Cmcxl37-Iat-9207 06:25:00 ResultValueReference RangeWhite Blood Cell Count6.34.4 - 11.3 x10E9/LRed Blood Cell Count2.99 L4.00 - 5.20 x10E12/LHGB9.8 L12.0 - 16.0 g/dLHCT31.3 L36.0 - 46.0 %QVD003 H80 - 100 yTZWHG40.3 L32.0 - 36.0 g/dBFYW954274 - 450 x10E9/LRDW-CV13.211.5 - 14.5 % Basic Metabolic Lhhmi61-Kzc-6700 06:25:00 ResultValueReference RangeGlucose, Fncmz2295 - 99 mg/kRYL886128 - 145 mmol/LK3.93.5 - 5.3 mmol/YQJ44206 - 107 mmol/LBicarbonate, Enaxs6956 - 32 mmol/LAnion Gap, Serum9 L10 - 20 mmol/LBUN33 H6 - 23 mg/dLCREAT1.47 H0.50 - 1.05 mg/dLGFR-Non Qgvwpxyw50 A>60 mL/min/1.52l3UUJ-Rqzomas Ucyeowxp40 A>60 mL/min/1.04g4Foouhls, Serum10.9 H8.6 - 10.3 mg/dL Brain Natriuretic Whuewit64-Wpm-2162 15:10:00 ResultValueReference RangeBrain Natriuretic Puffvyg900 - 99 pg/mL Feauvbjuzm26-Aez-8462 15:06:00 ResultValueReference RangeColor, UrineYELLOW Reference Range: STRAW,YELLOWAppearance, UrineHAZYCLEARSpecific Sulphur, Urine1.0091.005 - 1.035pH, Urine6.05.0 - 8.0Protein, UrineNEGATIVENEGATIVE mg/dLGlucose, UrineNEGATIVENEGATIVE mg/dLBlood, UrineSMALL(1+) ANEGATIVEKetones, UrineNEGATIVENEGATIVE mg/dLBilirubin, UrineNEGATIVENEGATIVEUrobili nogen, Urine<2.00.0 - 1.9 mg/dLNitrite, UrineNEGATIVENEGATIVELeukocy te Esterase, UrineMODERATE(2+) ANEGATIVE Urinalysis, Iudfbaawkxx22-Ttb-2891 15:06:00 ResultValueReference RangeWhite Cells8 A0 - 5 /HPFRed Blood Cells2 A0 - 5 /HPFEpithelial Cells, Fbnjupbk3Sxiiietrzh Cells, Transitional<1Bacteria, Urine4+ AMucousFEWHyaline Casts3+ AAmorphous Crystals1+ Culture, BloodTrending View Vhcsgp02-Blm-4955 14:35:9675-Mlz-0205 14:34:00Reference RangeCulture, BloodNEGATIVE TO DATE, CULTURE IN PROGRESS.NEGATIVE TO DATE, CULTUREIN PROGRESS. Comprehensive Metabolic Kwjhr99-Fme-0506 14:34:00 ResultValueReference RangeLab Comment:Dr Vance notified, 07/26/2017 15:10Glucose, Skluc098 H74 - 99 mg/dQQI946288 - 145 mmol/LK4.83.5 - 5.3 mmol/SOB9532 - 107 mmol/LBicarbonate, Rqfsb4604 - 32 mmol/LAnion Gap, Fhyja9247 - 20 mmol/LBUN43 H6 - 23 mg/dLCREAT1.94 H0.50 - 1.05 mg/dLGFR-Non Vlabfwgs63 A>60 mL/min/1.30r7GPG-Laacuqv Ctkmvgdh80 A>60 mL/min/1.45g0Vktvmbc, Serum13.2 HH8.6 - 10.3 mg/dLALB3.0 L3.4 - 5.0 g/fWJDQJ4094 - 136 U/LT Pro6.66.4 - 8.2 g/Rashi Bili0.40.0 - 1.2 mg/dLAlanine Aminotransferase, Khraw259 - 45 U/LAspartate Transaminase, Dtfgv415 - 39 U/L Complete Blood Count + Olnkopnbtvcc29-Ozr-3653 14:34:00 ResultValueReference RangeWhite Blood Cell Count10.54.4 - 11.3 x10E9/LRed Blood Cell Count3.33 L4.00 - 5.20 x10E12/LHGB11.0 L12.0 - 16.0 g/dLHCT34.2 L36.0 - 46.0 %HHQ819 H80 - 100 yTBESR97.232.0 - 36.0 g/sCGRV847122 - 450 x10E9/LRDW-CV13.311.5 - 14.5 %Neutrophil %86.540.0 - 80.0 %Immature Granulocytes %0.50.0 - 0.9 %Lymphocyte %10.613.0 - 44.0 %Monocyte %2.02.0 - 10.0 %Eosinophil %0.20.0 - 6.0 %Basophil %0.20.0 - 2.0 %Neutrophil Count9.11 H1.60 - 5.50 x10E9/LLymphocyte Count1.110.80 - 3.00 x10E9/LMonocyte Count0.210.05 - 0.80 x10E9/LEosinophil Count0.020.00 - 0.40 x10E9/LBasophil Count0.020.00 - 0.10 x10E9/L PT + INR, Ukzkel30-Vlq-3315 14:34:00 ResultValueReference RangeProthrombin Time, Guckuf48.3 H9.8 - 12.7 secInternational Normalized Ratio, Plasma1.2 H0.9 - 1.1 RBC Dvctughtox85-Awo-0842 14:34:00 ResultValueReference RangeRed Blood Cell MorphologySEE COMMENT NO SIGNIFICANT RBC ABNORMALITIES SEEN ONSMEAR REVIEW. 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 kbtfztphq-synt-zye continue with the dietary supplementalready started by [...] StatementN/A - observationpatient/other outpatient visits Electronic Signatures:Va Paez) (Entered 27-Jul-2017 15:06)Entered: History of Present Illness, Comorbidities, Allergies, Objective,Signatures/Attesta tion/CertificationValerie Jiang) (Signed 27-Jul-2017 21:08)Entered: Assessment and PlanAuthored: History of Present Illness, Comorbidities, Allergies, Objective,Assessment and Plan, Signatures/Attestation/Certi fication Last Updated: 27-Jul-2017 21:08 by Valerie Jiang) Normal [facility] Nutrition Therapy-Assessment on 07-27-2017 Nutrition Therapy-Assessment Assessment Subjective/Objective:Note Type: Assessment Note Authored by: Registered Dietitian NutritionistPager Number: [phone] Nutrition Note:The patient is a 82 year old Female admitted for rehab. Nutrition consulted per nursing screen for MST 2 or more, eating poorly/recentweight loss and for assessment recommendations. Per chart: Pt presented to ED from half-way facility on 07/26 atrecommendation of primary care [...] of pudding consumed. Pt says shewas eating "a little bit" at nursing facility. Per flowsheet, pt ate 75% ofbreakfast this morning and 100% of dinner last night. Per physician's note, ptdeclined feeding tube. Pt refused Boost Pudding, says she likes regularpudding. Pt says she would try Boost Plus [place]. Says she does not likeeggs. Noted different [...] 2 Abdomen Pain 3 Cholelithiasis: Onset Date: 23-Iio-0426Fngjl failure: Description: Heart failurePNEUMONIA:Diabetes mellitus: Description: Diabetes [...] bowel obstruction (disorder):Acute bowel obstruction: Onset Date: 11-Crp-0429Cmixq bowel obstruction: Objective Information: T PBXQUhM3Gglku50.38993099/619 8%Date/Time07/27 6:5818 6:5818 6:5818 6:5818 6:58Range(36.7C - 36.8C ) (62 - 71 [...] (kg/m2)) 18.712 ---- Intake and Output -----Mn/Dy/Year TimeIntakeOutputNetJun 2017 2:00 [id number] 2017 10:00 [id number] The Intake and Output Totals for the last 24 hours are:TybkfrCprhcsTii223dluwme ll Height/Weight:Height in feet: 5 feetHeight in [...] (H) Nutrition Labs:Special Chemistry: 03-Jul-2017 10:15, Hemoglobin P9LHvuzvyzptg A1C, Level5.3 Diagnosis of Diabetes-Adults Non-Diabetic: < or = 5.6% Increased risk for developing diabetes: 5.7-6.4% Diagnostic of diabetes: > or = 6.5%. Monitoring of Diabetes Age (y) Therapeutic Goal (%) Adults: >18 <7.0 Pediatrics: 13-18 <7.5 7-12 <8.0 0- 6 7.5-8.5 [place] [employer]. Diabetes Care 33(S1), Feb 2009.Estimated Average Leiycqo221 Current Active Medications/PN:Bisacodyl Enteric Coated, Enteric Coated Tablet (DULCOLAX)DOSE = 5 mg Oral Once, PRN Constipation, 50-Mdl-7910Vsfwbzztr Hydroxide -Al Hydrox -Simethicone Oral Liquid, (MAALOX)DOSE = 30 mL Oral Every 6 Hours, PRN Dyspepsia, 21-Vqn-7462Szmqxfovji, Tablet (PRINIVIL, ZESTRIL)DOSE = 10 mg Oral Daily, 29-Abb-9420xpdVWCvs, Tablet (ULTRAM)DOSE = 50 mg Oral Every 6 Hours, PRN Pain - Mod (4-6), 31-Oee-0278Mbnlzgjxesm, Tablet (PLAVIX)DOSE = 75 mg Oral Daily, 73-Tyj-9000Pqpedhdclp, Tablet (LASIX)DOSE = 20 mg Oral Daily, 40-Qsi-2783Wasbcxtvfe, Capsule (NEURONTIN)DOSE = 300 mg Oral 3 Times a Day, 81-Usy-4847Rwfzxwxudj Mononitrate Extended Release, Tablet, Extended Release (IMDUR)DOSE = 60 mg Oral Daily, 58-Csx-3875Nbwvfkjsij Tartrate, Tablet (LOPRESSOR)DOSE = 50 mg Oral Every 12 Hours, 10-Skg-5730Uqdfsvucaqv, Tablet (ZOCOR)DOSE = 40 mg Oral At Bedtime, 85-Syz-1434Gyjzhvdhbo, Tablet (PEPCID)DOSE = 20 mg Oral At Bedtime, 83-Ybu-2168Ztowvijwai Oral Liquid, DOSE = 125 mg Oral Every 6 Hours, 86-Pqi-5206Umeqjml Sulfate, Tablet (FEOSOL)DOSE = 325 mg Oral Daily, 05-Uzg-0229Gtofsgokg Chloride Extended Release, Tablet, Extended ReleaseDOSE = 10 mEq Oral Daily, 59-Nqo-1509vxTWEHvbf Extended Release (24 hour), Tablet, Extended Release (WELLBUTRINXL)DOSE = 150 mg Oral Every 24 Hours, 73-Lei-8522Vrfkgikhee, Tablet (ZOLOFT)DOSE = 150 mg Oral Daily, 88-Wcc-2674eeOMQewnco, Tablet (ZANAFLEX)DOSE = 2 mg Oral Every 24 Hours, 85-Nvk-1609Jbwxwy Chloride 0.9% with Potassium CL 20 mEq Premix Fluid, IV Bag Volume =1,000 mL Run at: 100 mL/hr IntraVenous , 27-Jul-2017 Nutrition Orders:Diet, Regular, 59-Zdu-8331Usj Participate in Room Service, YesOrder entered from Admission Screens., 17-Ifi-6297Pfbn Nutritional Supplements, RoutineBoost PlusFlavor Preference: [place], 3 Times a DaySpecial Instructions: Please send Boost Plus [place] with each tray.Thank you!, 27-Jul-2017 Food/Nutrition Related [...] Last Updated: 27-Jul-2017 15:15 by Silvia Tyler (DEEPA HENRIQUEZ) Normal [facility] PARATHYROID HORMONE,INTACTon 07-27-2017 PARATHYROID HORMONE,INTACT < 6.3 Low 18.5 - 88.0 [facility] Comment on above: Result Comment: Daniel ents receiving more than 5 mg/day of biotin may have interference in test results. A sample should be taken no sooner than eight hours after previous dose. Contact [phone] for additional information. Performed By: #### L IPID ####[facility] [place] [address] Admission Risk Screen - Adul ton 07-26-2017 [...] Advance Directive typeLiving Will, Durable Power of Battery Container Tester for Healthcare? Living Will AvailabilityLiving Will not available now? Living Will Jvechmjad25-Zdp-5720? Durable Power of Battery Container Tester AvailabilityDPOA not available now? Durable Power of Battery Container Tester Ekcnzeztb96-Dob-2058? Durable Power of Battery Container Tester contact (name and number)Dannie Judge- [phone]? Advance Directive Mental Healthnot applicable Falls Screen:Type [...] material; verbal instruction? Cultural Considerationsnone? Developmental Considerationsnone? Islam Considerationsnone Learning Assessment (Other Learner):? Other learner [...] Spiritual Screen:? Are there any cultural, spiritual, buddhism practices/values/needs that areimportant for us to know?no CAGE:Is this an injured patient at a Trauma Center ([facility] / [place]): no Vaccinations:Vaccination - Influenza Vaccination Screen:? Is [...] Injury Present on Admissionno Electronic Signatures:Layne Dunbar (CINTHYA) (Signed 26-Jul-2017 17:13)Authored: Admission Risk Screens, Vaccinations, Moustapha, Pressure Injury Last Updated: 26-Jul-2017 17:13 by Layne Dunbar (CINTHYA) References:1. Data Referenced From "Triage - ED" 07/26/2017 2:05 PM Normal [facility] BLOOD CULTURE, BACTERIALon 0 07-26-2017 BLOOD CULTURE, BACTERIAL PATIENT: KATHERINE JUDGE LOCATION: [address]#: [id number] : [birth year] AGE: SEX: F ORDERED BY: TOMMY MENDEZ: Blood COLLECTED: 07/26/17 14:35ANTIBIOTICS AT ESDRAS.: RECEIVED : 07/27/17 09:48SITE: ANTECUBITAL R E S U L T S BLOOD CULTURE, BACTERIAL FINAL 08/01/17 11:42 No Growth at 1 days No Growth at 2 days No Growth at 3 days No Growth at 4 days NO GROWTH - FINAL REPORT Normal [facility] Comment on above: Performed By: #### L IPID ####[facility] [place] [address] BLOOD CULTURE, BACTERIAL PATIENT: KATHERINE JUDGE LOCATION: [address]#: [id number] : [birth year] AGE: SEX: F ORDERED BY: TOMMY MENDEZ: Blood COLLECTED: 07/26/17 14:34ANTIBIOTICS AT ESDRAS.: RECEIVED : 07/27/17 09:58SITE: ANTECUBITAL R E S U L T S BLOOD CULTURE, BACTERIAL FINAL 08/01/17 11:42 No Growth at 1 days No Growth at 2 days No Growth at 3 days No Growth at 4 days NO GROWTH - FINAL REPORT Normal [facility] Comment on above: Performed By: #### L IPID ####[facility] [place] [address] BNPon 07-26-2017 Natriuretic peptide B mass conc (Bld) 67 pg/mL Normal 0 - 99 [facility] Comment on above: Result Comment: . <1 00 pg/mL - Heart failure inhkdtjq300-888 pg/mL - Intermediate probability of acute heart. failure exacerbation. Correlate with clinical. context and patient history. >=300 pg/mL - Heart Failure likely. Correlate with clinical. context and patient history.BNP testing is performed using different testingmethodology at [facility] than at [facility]. Direct result comparisons shouldonly be made within the same method. Performed By: #### L IPID ####[facility] [place] [address] CBC AND DIFFERENTIALon 07-26 % AUTOMATED IMMATURE GRAN 0.5 % Normal 0.0 - 0.9 [facility] Comment on above: Result Comment: Perc ent differential counts (%) should be interpreted in the context of the absolute cell counts (cells/L). Performed By: #### L IPID ####[address] [address] % NEUTROPHIL 86.5 % Normal 40.0 - 80.0 [facility] Comment on above: Performed By: #### L IPID ####[address] [address] Basophils/100 WBC Auto (Bld) 0.02 x10E9/L Normal 0.00 - 0.10 [facility] Comment on above: Performed By: #### L IPID ####[address] [address] Basophils/100 WBC Auto (Bld) 0.2 % Normal 0.0 - 2.0 [facility] Comment on above: Performed By: #### L IPID ####[address] [address] Eosinophils Auto #/vol (Bld) 0.02 10*3/uL Normal 0.00 - 0.40 [facility] Comment on above: Performed By: #### L IPID ####[address] [address] Eosinophils/100 WBC Auto (Bld) 0.2 % Normal 0.0 - 6.0 [facility] Comment on above: Performed By: #### L IPID ####[address] [address] Lymphocytes Auto #/vol (Bld) 1.11 10*3/uL Normal 0.80 - 3.00 [facility] Comment on above: Performed By: #### L IPID ####[address] [address] Lymphocytes/100 WBC Auto (Bld) 10.6 % Normal 13.0 - 44.0 [facility] Comment on above: Performed By: #### L IPID ####[address] [address] Monocytes Auto #/vol (Bld) 0.21 10*3/uL Normal 0.05 - 0.80 [facility] Comment on above: Performed By: #### L IPID ####[address] [address] Monocytes/100 WBC Auto (Bld) 2.0 % Normal 2.0 - 10.0 [facility] Comment on above: Performed By: #### L IPID ####[address] [address] Neutrophils Auto #/vol (Bld) 9.11 10*3/uL High 1.60 - 5.50 [facility] Comment on above: Performed By: #### L IPID ####[address] [address] Erythrocyte distribution width Auto Ratio (RBC) 13.3 % Normal 11.5 - 14.5 [facility] Comment on above: Performed By: #### L IPID ####[address] [address] Hematocrit Auto Volume Fraction (Bld) 34.2 % Low 36.0 - 46.0 [facility] Comment on above: Performed By: #### L IPID ####[address] [address] Hemoglobin mass conc (Bld) 11.0 g/dL Low 12.0 - 16.0 [facility] Comment on above: Performed By: #### L IPID ####[address] [address] MCHC Auto mass conc (RBC) 32.2 g/dL Normal 32.0 - 36.0 [facility] Comment on above: Performed By: #### L IPID ####[address] [address] MCV Auto Entitic volume (RBC) 103 fL High 80 - 100 [facility] Comment on above: Performed By: #### L IPID ####[address] [address] Platelets Auto #/vol (Bld) 317 10*3/uL Normal 150 - 450 [facility] Comment on above: Performed By: #### L IPID ####[facility] [place] [address] RBC Auto #/vol (Bld) 3.33 x10E12/L Low 4.00 - 5.20 [facility] Comment on above: Performed By: #### L IPID ####[facility] [place] [address] WBC Auto #/vol (Bld) 10.5 10*3/uL Normal 4.4 - 11.3 [facility] Comment on above: Performed By: #### L IPID ####[facility] [place] [address] CHEST 1 VIEWon 07-26-2017 CHEST 1 VIEW [...] Electronically signed by: KAVON MANNING MD Normal [facility] COMPREHENSIVE PANELon 2017 Albumin mass conc 3.0 g/dL Low 3.4 - 5.0 [facility] Comment on above: Order Comment: Dr Perry parra notified, 07/26/2017 15:10 Performed By: #### L IPID ####[facility] [place] [address] ALP enzyme act/vol 65 U/L Normal 33 - 136 [facility] Comment on above: Order Comment: Dr Perry parra notified, 07/26/2017 15:10 Performed By: #### L IPID ####[facility] [place] [address] ALT enzyme act/vol 24 U/L Normal 7 - 45 [facility] Comment on above: Order Comment: Dr Perry parra notified, 07/26/2017 15:10 Result Comment: Daniel ents treated with Sulfasalazine may generate falsely decreased results for ALT. Performed By: #### L IPID ####[address] [place] [address] Anion gap 3 molar conc 13 mmol/L Normal 10 - 20 [facility] Comment on above: Order Comment: Dr Perry parra notified, 07/26/2017 15:10 Performed By: #### L IPID ####[address] [place] [address] AST enzyme act/vol 22 U/L Normal 9 - 39 [facility] Comment on above: Order Comment: Dr Perry parra notified, 07/26/2017 15:10 Performed By: #### L IPID ####[address] [place] [address] Bilirubin mass conc 0.4 mg/dL Normal 0.0 - 1.2 [facility] Comment on above: Order Comment: Dr Perry parra notified, 07/26/2017 15:10 Performed By: #### L IPID ####[address] [place] [address] Calcium mass conc 13.2 mg/dL Critically high 8.6 - 10.3 [facility] Comment on above: Order Comment: Dr Perry parra notified, 07/26/2017 15:10 Result Comment: Dr Henrique oneal notified, 07/26/2017 15:10 Performed By: #### L IPID ####[address] [place] [address] Chloride molar conc 98 mmol/L Normal 98 - 107 [facility] Comment on above: Order Comment: Dr Perry parra notified, 07/26/2017 15:10 Performed By: #### L IPID ####[address] [place] [address] Creatinine mass conc 1.94 mg/dL High 0.50 - 1.05 [facility] Comment on above: Order Comment: Dr Perry parra notified, 07/26/2017 15:10 Performed By: #### L IPID ####[address] [place] [address] GFR- AM. 30 mL/min/1.73m2 Abnormal >60 [facility] Comment on above: Order Comment: Dr Perry parra notified, 07/26/2017 15:10 Result Comment: CALC ULATIONS OF ESTIMATED GFR ARE PERFORMED USING THE MDRD STUDY EQUATION FOR THE IDMS-TRACEABLE CREATININE METHODS. CLIN CHEM 2007;53:766-72 Performed By: #### L IPID ####[address] [place] [address] GFR-NON AM. 25 mL/min/1.73m2 Abnormal >60 [facility] Comment on above: Order Comment: Dr Perry parra notified, 07/26/2017 15:10 Performed By: #### L IPID ####[address] [place] [address] Glucose mass conc 111 mg/dL High 74 - 99 [facility] Comment on above: Order Comment: Dr Perry parra notified, 07/26/2017 15:10 Performed By: #### L IPID ####[address] [place] [address] HCO3 molar conc (Bld) 30 mmol/L Normal 21 - 32 [facility] Comment on above: Order Comment: Dr Perry parra notified, 07/26/2017 15:10 Performed By: #### L IPID ####[address] [place] [address] Potassium molar conc 4.8 mmol/L Normal 3.5 - 5.3 [facility] Comment on above: Order Comment: Dr Perry parra notified, 07/26/2017 15:10 Performed By: #### L IPID ####[address] [place] [address] Protein mass conc 6.6 g/dL Normal 6.4 - 8.2 [facility] Comment on above: Order Comment: Dr Perry parra notified, 07/26/2017 15:10 Performed By: #### L IPID ####[address] [place] [address] Sodium molar conc 136 mmol/L Normal 136 - 145 [facility] Comment on above: Order Comment: Dr Perry parra notified, 07/26/2017 15:10 Performed By: #### L IPID ####[facility] [place] [address] Urea nitrogen mass conc 43 mg/dL High 6 - 23 [facility] Comment on above: Order Comment: Dr Perry parra notified, 07/26/2017 15:10 Performed By: #### L IPID ####[facility] [place] [address] CT HEAD WO CONTRASTon 2017 CT HEAD [...] PROCESSElectronically signed by: ALTAGRACIA MELO MD Normal [facility] EMR ADDONon 07-26-2017 ADDON CONFIRMATION REQUEST REC'D Normal [facility] Comment on above: Performed By: #### L IPID ####[facility] [place] [address] LACTATEon 07-26-2017 Lactate molar conc 1.1 mmol/L Normal 0.4 - 2.0 [facility] Comment on above: Result Comment: Hail puncture immediately after or during the administration of Metamizole may lead to falsely low results. Testing should be performed immediately prior to Metamizole dosing. Performed By: #### L IPID ####[address] [place] [address] LIPASEon 07-26-2017 Lipase enzyme act/vol 57 U/L Normal 9 - 82 [facility] Comment on above: Result Comment: Hali puncture immediately after or during the administration of Metamizole may lead to falsely low results. Testing should be performed immediately prior to Metamizole dosing. Performed By: #### L IPID ####[address] [place] [address] PT/INRon 07-26-2017 INR Coag RelTime (PPP) 1.2 {INR} High 0.9 - 1.1 [facility] Comment on above: Performed By: #### L IPID ####[address] [place] [address] Prothrombin time (PT) Coag time (PPP) 13.3 s High 9.8 - 12.7 [facility] Comment on above: Performed By: #### L IPID ####[address] [address] Patient Profile - Adult v2on 07-26-2017 Protein mass conc Profile:Initial Info :How to be AddressedAliceSpoken Language PreferredEnglish (1)Are you currently using the Personal Electronic Health Record or [facility]ENTERnoStated Reason for Admission"I wasn't responding"[facility] Belongingsremains with patientPatient Belongings Remaining with Patientclothing; dental applianceMedications Brought to Hospitalno General Health:Weight in kg40.6 kilogram(s)Weight in lbs89.7 pound(s)Height in feet4 feetHeight in hyinze82 inch(es)Height in cm147.3 centimeter(s)BMI (kg/m2)18.712 square meterWeight Methodactual (measured)Scale TypebedHeight Methodestimated RSP [...] Arrangementsnursing homeResource/Environmental ConcernsnoneAnticipated Transition Toinpatient rehabilitation facility; assisted carefacilityServices Anticipated at Transitioncase airport operations manager; 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 Allergies, Home [...] Active? Restoril: Drug, Confusion, Active Electronic Signatures:Layne Dunbar (CINTHYA) (Signed 26-Jul-2017 17:07)Authored: Profile, Additional Information Last Updated: 26-Jul-2017 17:07 by Layne Dunbar (CINTHYA) References:1. Data Referenced From "Triage - ED" 07/26/2017 2:05 PM2. Data Referenced From "Patient Profile - Adult v2" 07/09/2017 10:08 AM Normal [facility] Provider Note - EDon 018 Protein mass conc Time Seen:? Time Jdvb72-Dcw-9316 13:49 Triage Vital Signs:? Triage Information Most [...] Signs:? Objective Information T PRBP SpO2O2(LPM) %FiO2 Rybiso43-Uus-2088 14:05:00-36.23927769/57 98 supplemental O2 Lab Results:? Results I have reviewed these laboratory results: Brain Natriuretic Peptide [Kbhsr55-Aft-9662 15:10:00], Urinalysis [Drawn 26-Jul-2017 15:06:00], Urinalysis,Microscopic [Drawn 26-Jul-2017 15:06:00], Comprehensive Metabolic Panel [Sxxms47-Wnt-6723 14:34:00], Complete Blood Count + Differential [Drawn 40-Auo-146596:34:00], PT + INR, Plasma [Drawn 26-Jul-2017 14:34:00], RBC Morphology [Ypmyt57-Tnx-6077 14:34:00], Lipase, Serum [Drawn 26-Jul-2017 14:34:00], Lactate,Level [Drawn 26-Jul-2017 14:34:00], Troponin I, Serum [Drawn 82-Ecr-273410:34:00].Brain Natriuretic Lklbzii49-Ttd-2027 15:10:00 ResultValueReference RangeBrain Natriuretic Jszmzfk420 - 99 pg/mL Mncachmxec67-Lik-0812 15:06:00 ResultValueReference RangeColor, UrineYELLOW Reference Range: STRAW,YELLOWAppearance, UrineHAZYCLEARSpecific Sulphur, Urine1.0091.005 - 1.035pH, Urine6.05.0 - 8.0Protein, UrineNEGATIVENEGATIVE mg/dLGlucose, UrineNEGATIVENEGATIVE mg/dLBlood, UrineSMALL(1+) ANEGATIVEKetones, UrineNEGATIVENEGATIVE mg/dLBilirubin, UrineNEGATIVENEGATIVEUrobili nogen, Urine<2.00.0 - 1.9 mg/dLNitrite, UrineNEGATIVENEGATIVELeukocy te Esterase, UrineMODERATE(2+) ANEGATIVE Urinalysis, Rnqfnbpdahb42-Ohm-7696 15:06:00 ResultValueReference RangeWhite Cells8 A0 - 5 /HPFRed Blood Cells2 A0 - 5 /HPFEpithelial Cells, Ofqyqooa9Awwcjibiwa Cells, Transitional<1Bacteria, Urine4+ AMucousFEWHyaline Casts3+ AAmorphous Crystals1+ Comprehensive Metabolic Zmyyz22-Mtc-1996 14:34:00 ResultValueReference RangeLab Comment:Dr Vance notified, 07/26/2017 15:10Glucose, Smqdu589 H74 - 99 mg/yBSR552394 - 145 mmol/LK4.83.5 - 5.3 mmol/IWX9992 - 107 mmol/LBicarbonate, Uzufa5975 - 32 mmol/LAnion Gap, Mgkkr4321 - 20 mmol/LBUN43 H6 - 23 mg/dLCREAT1.94 H0.50 - 1.05 mg/dLGFR-Non Fyixtyza58 A>60 mL/min/1.63z0OJB-Ebfqmcr Lfiwxcyw84 A>60 mL/min/1.30j9Xbkceuq, Serum13.2 HH8.6 - 10.3 mg/dLALB3.0 L3.4 - 5.0 g/cGNMIY5083 - 136 U/LT Pro6.66.4 - 8.2 g/Rashi Bili0.40.0 - 1.2 mg/dLAlanine Aminotransferase, Ahxpi868 - 45 U/LAspartate Transaminase, Pauna316 - 39 U/L Complete Blood Count + Dbybcqznailg89-Tjw-4808 14:34:00 ResultValueReference RangeWhite Blood Cell Count10.54.4 - 11.3 x10E9/LRed Blood Cell Count3.33 L4.00 - 5.20 x10E12/LHGB11.0 L12.0 - 16.0 g/dLHCT34.2 L36.0 - 46.0 %HKF310 H80 - 100 jGXRXM16.232.0 - 36.0 g/mLBBG150475 - 450 x10E9/LRDW-CV13.311.5 - 14.5 %Neutrophil %86.540.0 - 80.0 %Immature Granulocytes %0.50.0 - 0.9 %Lymphocyte %10.613.0 - 44.0 %Monocyte %2.02.0 - 10.0 %Eosinophil %0.20.0 - 6.0 %Basophil %0.20.0 - 2.0 %Neutrophil Count9.11 H1.60 - 5.50 x10E9/LLymphocyte Count1.110.80 - 3.00 x10E9/LMonocyte Count0.210.05 - 0.80 x10E9/LEosinophil Count0.020.00 - 0.40 x10E9/LBasophil Count0.020.00 - 0.10 x10E9/L PT + INR, Baaltt74-Lfi-7209 14:34:00 ResultValueReference RangeProthrombin Time, Aairsh89.3 H9.8 - 12.7 secInternational Normalized Ratio, Plasma1.2 H0.9 - 1.1 RBC Sxmmtnixdr37-Duv-3802 14:34:00 ResultValueReference RangeRed Blood Cell MorphologySEE COMMENT NO SIGNIFICANT RBC ABNORMALITIES SEEN ONSMEAR REVIEW. Lipase, Iyaus97-Pyg-5459 14:34:00 ResultValueReference RangeLipase, Mfwmz703 - 82 U/L Lactate, Vygxv51-Tjb-5273 14:34:00 ResultValueReference RangeLactate, Level1.10.4 - 2.0 mmol/L Troponin I, Ffpoy58-Gkw-7438 14:34:00 ResultValueReference RangeTroponin I, Serum0.030.00 - 0.03 ng/mL Diagnostic Imaging Results Review: Radiology Results:? Results Impression: NO ACUTE INTRACRANIAL PROCESS CT Head without Contrast [Jul 26 2017 3:46PM] Impression: Mildly displaced fractures of the right 8th and 9th ribs. Otherwiseno definite active disease in the chest identified. Xray Chest 1 View [Jul 26 2017 3:26PM] EKG Results:? EKG Date/Xirm26-Mio-9234 13:53? Rate59? CommentsSinus bradycardia with a right [...] vancomycin earlier fewweeks prior presenting from a half-way facility at the recommendation ofher primary care [...] treatmentplan and disposition. Electronic Signatures:Juan Antonio Mendez (EKATERINA) (Signed 26-Jul-2017 16:05)Authored: Time Seen / ED [...] Maria A Vance) References:1. Data Referenced From "Triage - ED" 07/26/2017 2:05 PM Normal [facility] RED CELL MORPHOLOGYon 2017 RBC morphology finding Nom (Bld) SEE COMMENT Normal [facility] Comment on above: Result Comment: NO S IGNIFICANT RBC ABNORMALITIES SEEN ONSMEAR REVIEW. Performed By: #### L IPID ####[address] [place] [address] TROPONIN Ion 07-26-2017 Troponin I.cardiac mass conc 0.03 ng/mL Normal 0.00 - 0.03 [facility] Comment on above: [...] testing is performed using differenttesting methodology at [facility] than at [facility]. Direct result comparisons should onlybe made within the same method. Performed By: #### L IPID ####[address] [place] [address] UA MICROSCOPICon 07-26-2017 AMORPHOUS CRYSTAL 1+ /HPF Normal [facility] Comment on above: Performed By: #### L IPID ####[address] [place] [address] BACTERIA 4+ /HPF Abnormal [facility] Comment on above: Performed By: #### L IPID ####[facility] [place] [address] HYALINE CAST 3+ /LPF Abnormal [facility] Comment on above: Performed By: #### L IPID ####[address] [place] [address] MUCUS FEW Normal [facility] Comment on above: Performed By: #### L IPID ####[address] [address] RBC 2 /HPF Abnormal 0-5 [facility] Comment on above: Performed By: #### L IPID ####[address] [facility] [place] [address] SQUAMOUS EPITH. CELLS 1 /HPF Normal [facility] Comment on above: Performed By: #### L IPID ####[address] [facility] [place] [address] TRANSITIONAL EPITH.CELLS <1 Normal [facility] Comment on above: Performed By: #### L IPID ####[address] [place] [address] WBC 8 /HPF Abnormal 0-5 [facility] Comment on above: Performed By: #### L IPID ####[address] [address] URINALYSISon 07-26-2017 APPEARANCE HAZY Normal CLEAR [facility] Comment on above: Performed By: #### L IPID ####[address] [address] BILIRUBIN Negative Normal NEGATIVE [facility] Comment on above: Performed By: #### L IPID ####[address] [facility] [place] [address] BLOOD SMALL(1+) Abnormal NEGATIVE [facility] Comment on above: Performed By: #### L IPID ####[address] [facility] [place] [address] COLOR YELLOW Normal STRAW,YELL OW [facility] Comment on above: Performed By: #### L IPID ####[address] [facility] [place] [address] GLUCOSE Negative Normal NEGATIVE [facility] Comment on above: Performed By: #### L IPID ####[address] [facility] [place] [address] KETONES Negative Normal NEGATIVE [facility] Comment on above: Performed By: #### L IPID ####[address] [facility] [place] [address] LEUKOCYTE ESTERASE MODERATE(2+) Abnormal NEGATIVE [facility] Comment on above: Performed By: #### L IPID ####[address] [place] [address] NITRITE Negative Normal NEGATIVE [facility] Comment on above: Performed By: #### L IPID ####[facility] [place] [address] pH 6.0 Normal 5.0 - 8.0 [facility] Comment on above: Performed By: #### L IPID ####[facility] [place] [address] Protein mass conc Negative Normal NEGATIVE [facility] Comment on above: Performed By: #### L IPID ####[facility] [place] [address] SPECIFIC GRAVITY 1.009 Normal 1.005 - 1.035 [facility] Comment on above: Performed By: #### L IPID ####[facility] [place] [address] UROBILINOGEN <2.0 Normal 0.0 - 1.9 [facility] Comment on above: Performed By: #### L IPID ####[address] [place] [address] URINE CULTURE,BACTERIALon URINE CULTURE,BACTERIAL PATIENT: KATHERINE JUDGE LOCATION: [address]#: [id number] : [birth year] AGE: SEX: F ORDERED BY: TOMMY MENDEZ: URINE COLLECTED: 07/26/17 15:06ANTIBIOTICS AT ESDRAS.: RECEIVED : 07/27/17 09:18SITE: Straight Cath R E S U L T S URINE CULTURE,BACTERIAL FINAL 07/28/17 09:31 MULTIPLE ORGANISMS PRESENT, PROBABLE CONTAMINATION PLEASE REPEAT CULTURE. Normal [facility] Comment on above: Performed By: #### L IPID ####[address] [place] [address] URINE CULTURE,BACTERIAL PATIENT: KATHERINE JUDGE LOCATION: [facility] [id number]#: [id number] : [birth year] AGE: SEX: F ORDERED BY: TOMMY MENDEZ: URINE COLLECTED: 07/26/17 15:06ANTIBIOTICS AT ESDRAS.: RECEIVED : 07/27/17 09:44SITE: R E S U L T S URINE CULTURE,BACTERIAL FINAL 07/28/17 09:24 NO SIGNIFICANT GROWTH. Normal [facility] Comment on above: Performed By: #### L IPID ####[address] [place] [address] BASIC METABOLIC PANELon Anion gap 3 molar conc 14 mmol/L Normal 10 - 20 [facility] Comment on above: Performed By: #### L IPID ####[address] [place] [address] Calcium mass conc 8.9 mg/dL Normal 8.6 - 10.3 [facility] Comment on above: Performed By: #### L IPID ####[address] [place] [address] Chloride molar conc 102 mmol/L Normal 98 - 107 [facility] Comment on above: Performed By: #### L IPID ####[address] [place] [address] Creatinine mass conc 0.97 mg/dL Normal 0.50 - 1.05 [facility] Comment on above: Performed By: #### L IPID ####[address] [address] GFR- AM. 67 mL/min/1.73m2 Normal >60 [facility] Comment on above: Result Comment: CALC ULATIONS OF ESTIMATED GFR ARE PERFORMED USING THE MDRD STUDY EQUATION FOR THE IDMS-TRACEABLE CREATININE METHODS. CLIN CHEM 2007;53:766-72 Performed By: #### L IPID ####[address] [place] [address] GFR-NON AM. 55 mL/min/1.73m2 Abnormal >60 [facility] Comment on above: Performed By: #### L IPID ####[address] [place] [address] Glucose mass conc 98 mg/dL Normal 74 - 99 [facility] Comment on above: Performed By: #### L IPID ####[address] [address] HCO3 molar conc (Bld) 22 mmol/L Normal 21 - 32 [facility] Comment on above: Performed By: #### L IPID ####[facility] [place] [address] Potassium molar conc 4.2 mmol/L Normal 3.5 - 5.3 [facility] Comment on above: Performed By: #### L IPID ####[facility] [place] [address] Sodium molar conc 134 mmol/L Low 136 - 145 [facility] Comment on above: Performed By: #### L IPID ####[facility] [place] [address] Urea nitrogen mass conc 31 mg/dL High 6 - 23 [facility] Comment on above: Performed By: #### L IPID ####[facility] [place] [address] Daily Progress Note-Samarao n 07-16-2017 Protein mass conc Service: Surgery Sub jective Data:KATHERINE JUDGE is a 82 year old Female who is Hospital Day # 8. MUCH LESS CONFUSED / CR ELEVATED. Objective Data: Objective Information:T [id number]/669 2%Date/Time07/16 6: 6: 6: 6: 6:51Range(36.2C - [...] Updated: 16-Jul-2017 07:23 by Manny Arana) Normal [facility] BASIC METABOLIC PANELon Anion gap 3 molar conc 16 mmol/L Normal 10 - 20 [facility] Comment on above: Performed By: #### L ACT ####[facility] [place] [address] Calcium mass conc 9.4 mg/dL Normal 8.6 - 10.3 [facility] Comment on above: Performed By: #### L ACT ####[facility] [place] [address] Chloride molar conc 99 mmol/L Normal 98 - 107 [facility] Comment on above: Performed By: #### L ACT ####[address] [place] [address] Creatinine mass conc 1.42 mg/dL High 0.50 - 1.05 [facility] Comment on above: Performed By: #### L ACT ####[address] [address] GFR- AM. 42 mL/min/1.73m2 Abnormal >60 [facility] Comment on above: Result Comment: CALC ULATIONS OF ESTIMATED GFR ARE PERFORMED USING THE MDRD STUDY EQUATION FOR THE IDMS-TRACEABLE CREATININE METHODS. CLIN CHEM 2007;53:766-72 Performed By: #### L ACT ####[address] [address] GFR-NON AM. 35 mL/min/1.73m2 Abnormal >60 [facility] Comment on above: Performed By: #### L ACT ####[address] [place] [address] Glucose mass conc 91 mg/dL Normal 74 - 99 [facility] Comment on above: Performed By: #### L ACT ####[address] [address] HCO3 molar conc (Bld) 24 mmol/L Normal 21 - 32 [facility] Comment on above: Performed By: #### L ACT ####[address] [place] [address] Potassium molar conc 5.1 mmol/L Normal 3.5 - 5.3 [facility] Comment on above: Performed By: #### L ACT ####[address] [place] [address] Sodium molar conc 134 mmol/L Low 136 - 145 [facility] Comment on above: Performed By: #### L ACT ####[address] [address] Urea nitrogen mass conc 27 mg/dL High 6 - 23 [facility] Comment on above: Performed By: #### L ACT ####[address] [address] CBCon 07-15-2017 Erythrocyte distribution width Auto Ratio (RBC) 15.1 % High 11.5 - 14.5 [facility] Comment on above: Performed By: #### L ACT ####[address] [address] Hematocrit Auto Volume Fraction (Bld) 32.1 % Low 36.0 - 46.0 [facility] Comment on above: Performed By: #### L ACT ####[address] [address] Hemoglobin mass conc (Bld) 10.5 g/dL Low 12.0 - 16.0 [facility] Comment on above: Performed By: #### L ACT ####[address] [address] MCHC Auto mass conc (RBC) 32.7 g/dL Normal 32.0 - 36.0 [facility] Comment on above: Performed By: #### L ACT ####[address] [address] MCV Auto Entitic volume (RBC) 105 fL High 80 - 100 [facility] Comment on above: Performed By: #### L ACT ####[address] [address] Platelets Auto #/vol (Bld) 715 10*3/uL High 150 - 450 [facility] Comment on above: Performed By: #### L ACT ####[address] [address] RBC Auto #/vol (Bld) 3.06 x10E12/L Low 4.00 - 5.20 [facility] Comment on above: Performed By: #### L ACT ####[address] [address] WBC Auto #/vol (Bld) 12.9 10*3/uL High 4.4 - 11.3 [facility] Comment on above: Performed By: #### L ACT ####[address] [address] Daily Progress Note-Surgeryo n 06-06-2018 Protein mass conc Service: Surgery Sub jective Data:KATHERINE JUDGE is a 82 year old Female who is Hospital Day # 7. Patient only has complaint of sinus congestion. Reports abd pain is unchangedfrom yesterday. Denies fever, chills, nausea, vomiting. Passing gas, unsure ifshe passed stool. Denies feeling any pain at this time. Objective Data: Objective Information: T [id number]/749 2%Date/Time07/15 7: 7: 7: 7: 7:22Range(36C - 36.6C ) (72 - 101 ) (16 - 18 ) (117 - 160 )/ (63 - 87 ) (92%- 95% ) Pain with Activity reported at 07/14 14:57: 7Pain at Rest reported at 07/14 14:57: 7 Weights07/15 5:00: Weight in kg (Weight (kg)) 44.86/ 5:00: Weight in lbs ((lbs)) 98.7 Physical [...] a Day11. Simvastatin: 40 mg Oral At Xdbzate61. Vancomycin Oral Liquid: 125 mg Oral Every [...] Day Assessment and Plan:Assessment:82-year-old female admitted [facility] for physical deconditioningfollowing cecal volvulus s/p right hemicolectomy. 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 with treated with PO vancomycin-appreciate nutrition consult, Dx moderate protein calorie malnutrition Altered Mental Status-holding narcotic pain medications Plan yet to be discussed with Dr Melvina Hendrix, [facility] Medicine PGY-1#[id number] Electronic Signatures:Manny Arana) (Signed 15-Jul-2017 17:05)Authored: Signature/Cosignature/Attest ationCo-Signer: Service, Subjective Data, Objective Data, Assessment and Plan,Signature/Cosignature/A ttestationAftab Hendrix (Resident)) (Signed 15-Jul-2017 08:43)Authored: Service, Subjective Data, Objective Data, Assessment and Plan,Signature/Cosignature/A ttestation Last Updated: 15-Jul-2017 17:05 by Manny Arana) Normal [facility] Discharge [id number] 018 Protein mass conc Discharge Orders:Ant icipated Discharge Date:? Anticipated Discharge [id number] Problem List: Additional Dx:? Cecal volvulus: Catalog Name: Volvulus? Clostridium difficile colitis: Catalog Name: Enterocolitis due toClostridium difficile, not specified as recurrent? S/P right hemicolectomy: Catalog Name: Acquired absence of other specifiedparts of digestive tract Hospital Providers:Provider RoleProvider Name? Jw Pruitt? AttendingManny Arana Activity:activity as tolerated. May shower. May not [...] to [facility] for [facility] On the floor she experienced some [...] [facility]. [...] Therapy Orders:? Occupational Therapy OrdersEval and Treat ([facility]) 2times/day? Physical Therapy OrdersEval and Treat ([facility]) 2times/day Provider Follow Up:? Physician To Follow at Skilled/RehabAttending Physician at Skilled/Rehab Provider FINAL REVIEW of Orders:Final Review:? Final Review of Medication Reconciliation and Orders Completedby Physician? Reviewing ProviderAftab Hendrix DO (Resident) at 17-Jul-2017 10:39:47 Appointments:Follow-Up Appointment 01:? Physician/Dept/Seble Arana? Scheduled Date/[id number]-8477 13:45? [facility] [place]? Phone [phone] Gold Form - Nursing Summary:Special Treatments/Procedures (in past 14 days):? Chemotherapyno? Dialysisno? IV Medicationno? Oxygen Therapyno? Transfusionsno? Feverno? Radiationno? Ventilatorno? Tracheostomyno? Suctioningno Nutrition:? Nutritional Statuspoor appetite Sensory/Comfort:? Visionadequate? Hearingadequate? Speechclear? Painyes? Pain Type6-7? Pain LocationGeneralized back pain? Whenfrequently? Pain Relieved Bymedication and positioning Elimination:? Bladdercontinent? Bowelcontinent? Last Bowel Yyfodsrn81-Ogl-7935? Toiletingdependent Safety:? Siderailsyes? Siderails Number/Reason2? Restraintsno? Sitterno Medication/Hygiene/Mobility: ? Medication Administrationsupervision only Gold Form - Tree Tapping Laborer Summary:Referral Information:? Referral [facility]? Referring Facility [facility]? Contact Tabitha Muller RNCC? Contact Phone [phone] Mental & Functional Status:? Mental/Behavioral Statusalert, cooperative? Functional Status Prior To AdmissionIndependent? Mental/Functional CommentIntermittent confusion Electronic Signatures:Ayse Martinez (RN) (Signed 16-Jul-2017 15:24)Authored: Manny Haley) (Signed 17-Jul-2017 11:26)Authored: Gold Form Orders, Provider FINAL REVIEW of Orders, Gold Form -Nursing SummaryCo-Signer: Discharge Orders, Gold Form Orders, Provider FINAL REVIEW ofOrders, Gold Form - Tree Tapping Laborer SummaryAftab Hendrix (DO (Resident)) (Signed 17-Jul-2017 10:40)Authored: Discharge Orders, Hospital Course (Home Care/Gold Form), ProviderFINAL REVIEW of OrdersWanda Muller (CLIN COOR) (Signed 15-Jul-2017 15:51)Authored: Gold Form Orders, Gold Form - Tree Tapping Laborer Summary Last Updated: 17-Jul-2017 11:26 by Manny Arana) [facility] Nutrition Therapy-Follow Upo n 07-15-2017 Nutrition Therapy-Follow Up Assessment Subjective/Objective:Note Type: Follow Up Note Authored by: Registered Dietitian NutritionistPager Number: [phone] Nutrition Note:The patient is a 82 year [...] stapledileocolonic anastomosis on 07/03/17. [facility]urg acute care.Chest xray on 07/06 showed worsening CHF; IV fluids held and IV Lasix started.Was found with + C.diff on 07/08, started on PO vancomycin. [facility]/09 for rehab for [...] takes antibiotics; requested moisturizing oral rinse; Dr. Gordoncted via [facility] on 07/15. Per flowsheet, [...] 2 Abdomen Pain 3 Cholelithiasis: Onset Date: 41-Lju-1591Pflrk failure: Description: Heart failurePNEUMONIA:Diabetes mellitus: Description: Diabetes [...] bowel obstruction (disorder):Acute bowel obstruction: Onset Date: 95-Tkk-9589Wofuo bowel obstruction: Objective Information: T UJUBXmR7Iuawv72.11485987/749 4%Date/Time07/15 14: 16: 14: 16: 14:48Range(36.6C - [...] ((lbs)) 98.7 ---- Intake and Output -----Mn/Dy/Year TimeIntakeOutputBc 2017 10:00 [id number] The Intake and Output Totals for the last 24 hours are:RgnumnRvwshaUpa900pipsuw ll Height/Weight:Height in feet: 5 feetHeight in [...] (L) Nutrition Labs:Special Chemistry: 03-Jul-2017 10:15, Hemoglobin Q0SVuwvszrubi A1C, Level5.3 Diagnosis of Diabetes-Adults Non-Diabetic: < or = 5.6% Increased risk for developing diabetes: 5.7-6.4% Diagnostic of diabetes: > or = 6.5%. Monitoring of Diabetes Age (y) Therapeutic Goal (%) Adults: >18 <7.0 Pediatrics: 13-18 <7.5 7-12 <8.0 0- 6 7.5-8.5 [place] [employer]. Diabetes Care 33(S1), Feb 2009.Estimated Average Newvphu393 Current Active Medications/PN:Clopidogrel, Tablet (PLAVIX)DOSE = 75 mg Oral Daily, 63-Mhk-9078Vpkyfbydaq SubCutaneous, (LOVENOX)DOSE = 40 mg SubCutaneous Every 24 HoursNotes from Pharmacy: NOTE DOSAGE STRENGTH, 41-Kuw-0309Dvzqvqaydm, Tablet (LASIX)DOSE = 40 mg Oral Daily, 32-Seg-7195Doyzqwtisi Mononitrate Extended Release, Tablet, Extended Release (IMDUR)DOSE = 60 mg Oral Daily, 52-Gig-7640Vivxdshzxt, Tablet (PRINIVIL, ZESTRIL)DOSE = 10 mg Oral Daily, 37-Jih-6529Njdgajamey Tartrate, Tablet (LOPRESSOR)DOSE = 50 mg Oral Every 12 Hours, 02-Otn-6110Ndzmskbqkfjk, Enteric Coated Tablet (PROTONIX)DOSE = 40 mg Oral Daily, 97-Qyk-0771Kaxkslghbqe, Tablet (ZOCOR)DOSE = 40 mg Oral At Bedtime, 51-Jeq-1219Tjyhyaacvm Oral Liquid, DOSE = 125 mg Oral Every 6 Hours, 50-Ohz-7811Fbbbuvyjj Chloride Extended Release, Tablet, Extended ReleaseDOSE = 40 mEq Oral 2 Times a Day, 35-Iye-6276Cxiymgfsfe, Capsule (NEURONTIN)DOSE = 300 mg Oral 3 Times a Day, 21-Ulz-9163Pnojzn Substitute, SolutionDOSE = 15 mL Oral 4 Times a Day, 15-Jul-2017 Nutrition Orders:Oral Nutritional Supplements, RoutineResource BreezeFlavor Preference: [place]; [place], 2 Times a DaySpecial Instructions: Please send Boost Breeze orange at breakfast and BoostBreeze york at dinner, 24-Hsv-9314Yxt-Stat 101, Oral - Administer as a scheduled medication. Pour packet into a30 ML medicine cup. Tube Feeding - Standard flush before and afteradministering 3 Times a Day Rftfcxd9MY (Oral), 23-Gsr-3753Jxfy May Participate in Room Service WLeigh Braswell, YesOrder entered from Admission Screens., 04-Nyl-6922Glrd, High Calorie; High Protein, 35-Ubh-6971Jevu Nutritional Supplements, RoutineBoost PuddingFlavor Preference: Vanilla, DailySpecial [...] hemicolectomy. Diagnosis2 new. Additional Assessment Information: Labs Noted:6/4: Glu 123 (H); 07/09: Glu 111 (H), likely secondary to stress07/13: H/H 11/31.3 (L), improving, was H/H 9.4/27.9 (L). Nutrition [...] Last Updated: 15-Jul-2017 18:05 by Silvia Tyler (RDN, LD) Normal [facility] BASIC METABOLIC PANELon 06-0 Anion gap 3 molar conc 14 mmol/L Normal 10 - 20 [facility] Comment on above: Performed By: #### L ACT ####[address] [place] [address] Calcium mass conc 8.9 mg/dL Normal 8.6 - 10.3 [facility] Comment on above: Performed By: #### L ACT ####[address] [place] [address] Chloride molar conc 102 mmol/L Normal 98 - 107 [facility] Comment on above: Performed By: #### L ACT ####[address] [address] Creatinine mass conc 0.69 mg/dL Normal 0.50 - 1.05 [facility] Comment on above: Performed By: #### L ACT ####[address] [place] [address] GFR- AM. >60 Normal >60 [facility] Comment on above: Result Comment: CALC ULATIONS OF ESTIMATED GFR ARE PERFORMED USING THE MDRD STUDY EQUATION FOR THE IDMS-TRACEABLE CREATININE METHODS. CLIN CHEM 2007;53:766-72 Performed By: #### L ACT ####[address] [address] GFR-NON AM. >60 Normal >60 [facility] Comment on above: Performed By: #### L ACT ####[address] [place] [address] Glucose mass conc 123 mg/dL High 74 - 99 [facility] Comment on above: Performed By: #### L ACT ####[address] [place] [address] HCO3 molar conc (Bld) 27 mmol/L Normal 21 - 32 [facility] Comment on above: Performed By: #### L ACT ####[address] [place] [address] Potassium molar conc 3.8 mmol/L Normal 3.5 - 5.3 [facility] Comment on above: Performed By: #### L ACT ####[address] [address] Sodium molar conc 139 mmol/L Normal 136 - 145 [facility] Comment on above: Performed By: #### L ACT ####[address] [address] Urea nitrogen mass conc 14 mg/dL Normal 6 - 23 [facility] Comment on above: Performed By: #### L ACT ####[address] [address] CBCon 07-13-2017 Erythrocyte distribution width Auto Ratio (RBC) 14.9 % High 11.5 - 14.5 [facility] Comment on above: Performed By: #### L ACT ####[address] [address] Hematocrit Auto Volume Fraction (Bld) 31.3 % Low 36.0 - 46.0 [facility] Comment on above: Performed By: #### L ACT ####[address] [address] Hemoglobin mass conc (Bld) 11.0 g/dL Low 12.0 - 16.0 [facility] Comment on above: Performed By: #### L ACT ####[address] [address] MCHC Auto mass conc (RBC) 35.1 g/dL Normal 32.0 - 36.0 [facility] Comment on above: Performed By: #### L ACT ####[address] [address] MCV Auto Entitic volume (RBC) 100 fL Normal 80 - 100 [facility] Comment on above: Performed By: #### L ACT ####[address] [address] Platelets Auto #/vol (Bld) 614 10*3/uL High 150 - 450 [facility] Comment on above: Result Comment: Plat elet count verified by smear review. Performed By: #### L ACT ####[facility] [place] [address] RBC Auto #/vol (Bld) 3.14 x10E12/L Low 4.00 - 5.20 [facility] Comment on above: Performed By: #### L ACT ####[facility] [place] [address] WBC Auto #/vol (Bld) 11.0 10*3/uL Normal 4.4 - 11.3 [facility] Comment on above: Performed By: #### L ACT ####[facility] [place] [address] Daily Progress Note-Samarao n 07-13-2017 Protein mass [...] have been stopped. Objective Data: Objective Information:T DVQDCxD2Vitpq30.24940660/799 6%Date/Time07/13 7: 7: 7: 7: 7:03Range(36.7C - [...] Updated: 13-Jul-2017 16:51 by Manny Arana) Normal [facility] GLUCOSE-POCTon 07-13-2017 Glucose mass conc 118 mg/dL High 74 - 99 [facility] Comment on above: Result Comment: This assay has not been validated for use with critically ill patients. Clinical correlation or lab draw is recommended. Performed By: #### L ACT ####[place] [address] RED CELL MORPHOLOGYon 2017 GIANT PLATELETS Few Normal [facility] Comment on above: Performed By: #### L ACT ####[facility] [place] [address] POLYCHROMASIA Mild Normal [facility] Comment on above: Performed By: #### L ACT ####[facility] [place] [address] RBC morphology finding Nom (Bld) See Below Normal [facility] Comment on above: Performed By: #### L ACT ####[facility] [place] [address] US ABD ALEXANDER F/Uon 07-13-2017 US ABD [...] ically signed by: CRYSTAL ROONEY MD Normal [facility] Daily Progress Note-Surgeryo n 07-12-2017 Protein mass conc Consult Type: subseq uent visit/care Service: Surgery Subjective Data:KATHERINE JUDGE is a 82 year old Female who is Hospital Day # 4. HAS BEEN INTERMITTENTLY CONFUSED / STRANGE ORAL MOUTH MOVEMENTS / ON GABAPENTINAND WELLBUTRIN WHICH WAS STOPPED / TAKING PO / HAVING BMS. Objective Data: Objective Information:T UQGAHlE2Motum00.01130183/779 0%Date/Time07/12 7:126/3 7:126/3 7:126/3 7:126/3 7:12Range(37C - 37.4C ) (80 - 101 [...] Updated: 12-Jul-2017 07:45 by Manny Arana) Normal [facility] BASIC METABOLIC PANELon 06-0 Anion gap 3 molar conc 11 mmol/L Normal 10 - 20 [facility] Comment on above: Performed By: #### C MP ####[address] [place] [address] Calcium mass conc 7.5 mg/dL Low 8.6 - 10.3 [facility] Comment on above: Performed By: #### C MP ####[address] [place] [address] Chloride molar conc 101 mmol/L Normal 98 - 107 [facility] Comment on above: Performed By: #### C MP ####[address] [address] Creatinine mass conc 0.67 mg/dL Normal 0.50 - 1.05 [facility] Comment on above: Performed By: #### C MP ####[address] [place] [address] GFR- AM. >60 Normal >60 [facility] Comment on above: Result Comment: CALC ULATIONS OF ESTIMATED GFR ARE PERFORMED USING THE MDRD STUDY EQUATION FOR THE IDMS-TRACEABLE CREATININE METHODS. CLIN CHEM 2007;53:766-72 Performed By: #### C MP ####[address] [place] [address] GFR-NON AM. >60 Normal >60 [facility] Comment on above: Performed By: #### C MP ####[address] [address] Glucose mass conc 119 mg/dL High 74 - 99 [facility] Comment on above: Performed By: #### C MP ####[address] [address] HCO3 molar conc (Bld) 28 mmol/L Normal 21 - 32 [facility] Comment on above: Performed By: #### C MP ####[address] [place] [address] Potassium molar conc 3.2 mmol/L Low 3.5 - 5.3 [facility] Comment on above: Performed By: #### C MP ####[address] [place] [address] Sodium molar conc 137 mmol/L Normal 136 - 145 [facility] Comment on above: Performed By: #### C MP ####[address] [address] Urea nitrogen mass conc 11 mg/dL Normal 6 - 23 [facility] Comment on above: Performed By: #### C MP ####[address] [address] CBCon 07-11-2017 Erythrocyte distribution width Auto Ratio (RBC) 14.3 % Normal 11.5 - 14.5 [facility] Comment on above: Performed By: #### C MP ####[address] [address] Hematocrit Auto Volume Fraction (Bld) 29.2 % Low 36.0 - 46.0 [facility] Comment on above: Performed By: #### C MP ####[address] [address] Hemoglobin mass conc (Bld) 9.9 g/dL Low 12.0 - 16.0 [facility] Comment on above: Performed By: #### C MP ####[address] [address] MCHC Auto mass conc (RBC) 33.9 g/dL Normal 32.0 - 36.0 [facility] Comment on above: Performed By: #### C MP ####[address] [address] MCV Auto Entitic volume (RBC) 101 fL High 80 - 100 [facility] Comment on above: Performed By: #### C MP ####[address] [address] Nucleated RBC/100 WBC Ratio (Bld) 0.2 /100 WBC Abnormal 0.0-0.0 [facility] Comment on above: Performed By: #### C MP ####[address] [place] [address] Platelets Auto #/vol (Bld) 351 10*3/uL Normal 150 - 450 [facility] Comment on above: Performed By: #### C MP ####[address] [place] [address] RBC Auto #/vol (Bld) 2.89 x10E12/L Low 4.00 - 5.20 [facility] Comment on above: Performed By: #### C MP ####[address] [place] [address] WBC Auto #/vol (Bld) 13.8 10*3/uL High 4.4 - 11.3 [facility] Comment on above: Performed By: #### C MP ####[address] [place] [address] GLUCOSE-POCTon 07-11-2017 Glucose mass conc 113 mg/dL High 74 - 99 [facility] Comment on above: Result Comment: This assay has not been validated for use with critically ill patients. Clinical correlation or lab draw is recommended. Performed By: #### C MP ####[address] [place] [address] MAGNESIUMon 07-11-2017 Magnesium mass conc 1.62 mg/dL Normal 1.60 - 2.40 [facility] Comment on above: Performed By: #### C MP ####[address] [place] [address] Daily Progress Note-Surgeryo n 07-10-2017 Protein mass conc Service: Surgery Sub jective Data:KATHERINE JUDGE is a 82 year old Female who is Hospital Day # 2. Additional Information:Patient has not had any further bowel movements despite positive C. dif, on POvancomycin. Nurse reports patient was confused again overnight pain medicationwas switched to Toradol and Percocet made as needed. Objective Data: Objective Information:T GGBFRsC1Qmxdk19.29342966/819 3%Date/Time07/10 6:556/ 6:55/ 6:556/ 6:55/ 6:55Range(36C - 37.3C ) (82 - 91 [...] reviewed these laboratory results: Complete Blood Count [Xixmn41-Tfn-5529 04:03:00], Basic Metabolic Panel [Drawn 09-Jul-2017 04:03:00],Magnesium, [...] Last Updated: 10-Jul-2017 12:51 by Manny Arana) Normal [facility] Discharge Planning Noteon Discharge Planning Note Discharge Needs Assessment:? Discharge Planning Assessment Yaae03-Ccn-8606? Discharge Planning Assessment Completed byJavier Muller RNCC Patient Learning:? Factors that Impact Ability to Learnnone(1) Other Factors:? Functional Screen: In the recent/past 2-4 weeks, patient or family havenoticedno issues that require a rehabilitation consult at this time(1) Discharge Needs:? [facility]Discharge Plannin07/10/17 1453 - SWING BED [...] she will be ready to d/c with [facility] on July 17. Family isconcerned that she will not be able to return home and care for herself at thattime. We discussed options of transfering to community SNF if she still isrequiring skilled care beyond the expected time frame. We will reassess earlynext week for home going needs. Javier Muller RNCC 07/13/17 1330 Skilled Meeting Assessment: slight confused today, min assist sitto stand, contact guard ambulation with WW 60 feet. Reassessed plan ofdischarge date, changed to 07/21/17 from 07/17/17. Som Chaudhari RNCC 07/15/17 9942 - Discussed plan of care in interdisciplinary rounds. Patientevaluated at bedside this morning with family. [facility]. Referral sent inAllscrpits and PAS completed. Dr. Arana notified, awaiting response. Willcontinue to follow for any transition care needs or changes in current plan. Wesley RNCC 07/17/17 6127 - Discussed plan of care in interdisciplinary rounds. Patientevaluated at bedside this morning. Patient is ready for discharge today. Finalorders sent in All[employer]. We discussed transportation options. Patient statedthat she has a membership with [employer], I call the company. [facility] services is only for 911 calls. They do not provide communitytransportation. Discussed possible Community [facility] cost of $50 for ambulette and$5.00/mile following. Family is in agreement. Discharge plan: [facility] . Javier Muller RNCC Electronic Signatures:Som Chaudhari (CLIN COOR) (Signed 14-Jul-2017 13:32)Authored: Discharge Planning Wanda Cheung (CLIN COOR) (Signed 17-Jul-2017 11:49)Authored: Discharge Planning Note Last Updated: 17-Jul-2017 11:49 by Wanda Muller (CLIN COOR) References:1. Data Referenced From "Admission Risk Screen - Adult" 07/09/2017 09:59 AM Normal [facility] Nutrition Therapy-Assessment - -Swing Bedon 07-10-2017 Nutrition Therapy-Assessment - -Swing Bed Assessment Subjective/Objective:Note Type: Assessment -Swing Bed Note Authored by: Registered Dietitian NutritionistPager Number: [phone] Nutrition Note:The patient is a 82 year [...] stapledileocolonic anastomosis on 07/03/17. [facility]/Surg acute care.Chest xray on 07/06 showed worsening CHF; IV fluids held and IV Lasix started.Was found with + C.diff on 07/08, started on PO vancomycin. Discharged frommed/surg to half-way swing bed on 07/09 for rehab for [...] bowel obstruction (disorder):Acute bowel obstruction: Onset Date: 43-Fqf-4168Vzjsjoukhsl abdominal pain (finding): Chronic:Fluid overload pulmonary edema:Clostridium difficile infection:Diarrhea: Other Dx/Proc:Gastrointestinal bleeding: Description: Gastrointestinal bleeding1 Colitis, 2 Abdomen Pain 3 Cholelithiasis: Onset Date: 47-Omr-2377Xwduq failure: Description: Heart failurePNEUMONIA:Diabetes mellitus: Description: Diabetes [...] bowel obstruction (disorder):Acute bowel obstruction: Onset Date: 96-Tku-6417Ombzh bowel obstruction: Objective Information: T CURPCmE1Aygvj41.15153557/689 3%Date/Time07/10 14: 14: 14: 14: 14:18Range(36C - [...] Intake and Output -----Mn/Dy/Year TimeIntakeOutputNetJun 2017 2:00 [id number] 2017 6:00 yi692Kex 2017 10:00 pm000 Height/Weight:Height in feet: 5 [...] perfo ALab Comment: +CDIFF CALLED TO YUKI NIEVES, 07/09/2017 14:51 Nutrition Labs:Special Chemistry: 03-Jul-2017 10:15, Hemoglobin C4TNwwxzqqcdb A1C, Level5.3 Diagnosis of Diabetes-Adults Non-Diabetic: < or = 5.6% Increased risk for developing diabetes: 5.7-6.4% Diagnostic of diabetes: > or = 6.5%. Monitoring of Diabetes Age (y) Therapeutic Goal (%) Adults: >18 <7.0 Pediatrics: 13-18 <7.5 7-12 <8.0 0- 6 7.5-8.5 [place] [employer]. Diabetes Care 33(S1), Feb 2009.Estimated Average Ocuceoi706 Current Active Medications/PN:buPROPion Extended Release (24 hour), Tablet, Extended Release (WELLBUTRINXL)DOSE = 150 mg Oral Every 24 Hours, 25-Mwg-8875Onkaqstpoxj, Tablet (PLAVIX)DOSE = 75 mg Oral Daily, 65-Qbg-6163Pczsngzhwv SubCutaneous, (LOVENOX)DOSE = 40 mg SubCutaneous Every 24 HoursNotes from Pharmacy: NOTE DOSAGE STRENGTH, 85-Rkk-3870Qcxxaadecm, Tablet (LASIX)DOSE = 40 mg Oral Daily, 33-Ihw-6135Bemxzbifrp, Capsule (NEURONTIN)DOSE = 800 mg Oral 3 Times a Day, 62-Pnl-7751Ozcojrlpqt Mononitrate Extended Release, Tablet, Extended Release (IMDUR)DOSE = 60 mg Oral Daily, 16-Nqk-8492Rlukdcztcb, Tablet (PRINIVIL, ZESTRIL)DOSE = 10 mg Oral Daily, 59-Vfq-4666Aqhirnncqe Tartrate, Tablet (LOPRESSOR)DOSE = 50 mg Oral Every 12 Hours, 96-Aio-0909Hcebjlybotu Injectable, (ZOFRAN)DOSE = 4 mg IntraVenous Push Every 6 Hours, PRN Nausea & Vomiting, 17-Bpb-0155Ulwsmgzidr, Tablet (DITROPAN)DOSE = 5 mg Oral 3 Times a Day, 17-Uuu-8911iqmDREAVQ 5 mg - Acetaminophen 325 mg, Tablet (PERCOCET)DOSE = 1 tablet(s) Oral Every 4 Hours, PRN Pain - Mild (1-3), 83-Gyx-3131Lplywpdocicj, Enteric Coated Tablet (PROTONIX)DOSE = 40 mg Oral Daily, 66-Mkk-0150Arsuigcxu Chloride Powder Packet, (K-SHAUN)DOSE = 40 mEq Oral Daily, 56-Fgv-4475Cyobyhrppel, Tablet (ZOCOR)DOSE = 40 mg Oral At Bedtime, 84-Gau-8184Kpodme Chloride 0.9% Injectable Flush, via Triple Lumen - Arrow BrandVolume = 10 mL IntraVenous Flush Every 8 Hours and as Needed, 08-Ved-6418svgAGHoa, Tablet (ULTRAM)DOSE = 50 mg Oral Every 6 Hours, PRN Pain - Mod (4-6), 78-Bqy-9227Wyfgbbhkog, CapsuleDOSE = 125 mg Oral Every 6 Hours, 09-Jul-2017 Nutrition Orders:Oral Nutritional Supplements, RoutineResource BreezeFlavor Preference: [place]; [place], 2 Times a DaySpecial Instructions: Please send Boost Breeze orange at breakfast and BoostBrefrancinee york at dinner, 70-Itw-8791Yne-Stat 101, Oral - Administer as a scheduled medication. Pour packet into a30 ML medicine cup. Tube Feeding - Standard flush before and afteradministering 3 Times a Day Vxiadoc3KE (Oral), 33-Njo-9811Gfde May Participate in Room Service Jacky Braswell, YesOrder entered from Admission Screens., 73-Jdn-9154Qrrm, High Calorie; High Protein, 10-Jul-2017 Food/Nutrition Related [...] Last Updated: 10-Jul-2017 17:38 by Silvia Tyler (ELENITAN, LD) Normal [facility] Admission Risk Screen - Adul ton 07-09-2017 [...] Learning Preferencesverbal instruction? Cultural Considerationsnone? Developmental Considerationsnone? Islam Considerationsnone Learning Assessment (Other Learner):? Other learner [...] Spiritual Screen:? Are there any cultural, spiritual, buddhism practices/values/needs that areimportant for us to know?no CAGE:Is this an injured patient at a Trauma Center ([facility] / [place]): no Vaccinations:Vaccination - Influenza Vaccination Screen:? Is [...] Injury Present on Admissionno Electronic Signatures:Antoinette Hernandez (RN) (Signed 09-Jul-2017 10:07)Authored: Admission Risk Screens, Vaccinations, Moustapha, Pressure Injury Last Updated: 09-Jul-2017 10:07 by Antoinette Hernandez (RN) Normal [facility] BASIC METABOLIC PANELon 05-3 Anion gap 3 molar conc 9 mmol/L Low 10 - 20 [facility] Comment on above: Performed By: #### L IPAS ####[address] [address] Calcium mass conc 7.5 mg/dL Low 8.6 - 10.3 [facility] Comment on above: Performed By: #### L IPAS ####[address] [address] Chloride molar conc 101 mmol/L Normal 98 - 107 [facility] Comment on above: Performed By: #### L IPAS ####[address] [place] [address] Creatinine mass conc 0.66 mg/dL Normal 0.50 - 1.05 [facility] Comment on above: Performed By: #### L IPAS ####[address] [address] GFR- AM. >60 Normal >60 [facility] Comment on above: Result Comment: CALC ULATIONS OF ESTIMATED GFR ARE PERFORMED USING THE MDRD STUDY EQUATION FOR THE IDMS-TRACEABLE CREATININE METHODS. CLIN CHEM 2007;53:766-72 Performed By: #### L IPAS ####[address] [place] [address] GFR-NON AM. >60 Normal >60 [facility] Comment on above: Performed By: #### L IPAS ####[address] [address] Glucose mass conc 111 mg/dL High 74 - 99 [facility] Comment on above: Performed By: #### L IPAS ####[address] [place] [address] HCO3 molar conc (Bld) 31 mmol/L Normal 21 - 32 [facility] Comment on above: Performed By: #### L IPAS ####[address] [address] Potassium molar conc 3.3 mmol/L Low 3.5 - 5.3 [facility] Comment on above: Performed By: #### L IPAS ####[address] [address] Sodium molar conc 138 mmol/L Normal 136 - 145 [facility] Comment on above: Performed By: #### L IPAS ####[address] [address] Urea nitrogen mass conc 11 mg/dL Normal 6 - 23 [facility] Comment on above: Performed By: #### L IPAS ####[address] [address] CBCon 07-09-2017 Erythrocyte distribution width Auto Ratio (RBC) 13.7 % Normal 11.5 - 14.5 [facility] Comment on above: Performed By: #### L IPAS ####[address] [address] Hematocrit Auto Volume Fraction (Bld) 27.9 % Low 36.0 - 46.0 [facility] Comment on above: Performed By: #### L IPAS ####[address] [address] Hemoglobin mass conc (Bld) 9.4 g/dL Low 12.0 - 16.0 [facility] Comment on above: Performed By: #### L IPAS ####[address] [address] MCHC Auto mass conc (RBC) 33.7 g/dL Normal 32.0 - 36.0 [facility] Comment on above: Performed By: #### L IPAS ####[address] [address] MCV Auto Entitic volume (RBC) 100 fL Normal 80 - 100 [facility] Comment on above: Performed By: #### L IPAS ####[address] [place] [address] Nucleated RBC/100 WBC Ratio (Bld) 0.2 /100 WBC Abnormal 0.0-0.0 [facility] Comment on above: Performed By: #### L IPAS ####[address] [place] [address] Platelets Auto #/vol (Bld) 274 10*3/uL Normal 150 - 450 [facility] Comment on above: Performed By: #### L IPAS ####[address] [place] [address] RBC Auto #/vol (Bld) 2.79 x10E12/L Low 4.00 - 5.20 [facility] Comment on above: Performed By: #### L IPAS ####[address] [address] WBC Auto #/vol (Bld) 12.9 10*3/uL High 4.4 - 11.3 [facility] Comment on above: Performed By: #### L IPAS ####[address] [place] [address] CLOST.DIFF.TOXIN,PCRon 07-09 CLOST.DIFF.TOXIN,PCR DETECTED Abnormal Not Detected [facility] Comment on above: Order Comment: +CDIF F CALLED TO YUKI NIEVES, 07/09/2017 14:51 Result Comment: This assay detects the presence of the tcdB (toxin B) gene via DNA amplification, and results should be interpreted in the context of the patients history and clinical findings. This test cannot be performed on formed stools or used as a test of cure, and should not be performed more than once per 7 days.+CDIFF CALLED TO YUKI NIEVES, 07/09/2017 14:51 Performed By: #### L IPAS ####[address] [place] [address] History and Physicalon 07-09 History and Physical History of Present Illness:HPI:Patient is an 82 y/o female with PMHx of SBO and (s/p ELAP in February 2012),known large hiatal hernia, small vessel colon disease, CAD s/p CABG, diastolicCHF, HTN, HLD, depression, and chronic pain, who presented to the [facility] ED on 07/02/17 with sudden onset of [...] received Lovenox for DVT prophylaxis. She received oulwfxotwr98ro for acute exacerbation of diastolic CHF. Potassium [...] bowel obstruction (disorder):Acute bowel obstruction: Onset Date: 20-Oug-3271Htadf bowel obstruction:Acute bowel obstruction:Generalized abdominal pain (finding): [...] laboratory results: Complete Blood Count Trending View Hukxqo94-Dlj-2760 04:03:00 08-Jul-2017 07:37:00 07-Jul-2017 04:53:00 06-Jul-2017 08:19:00White Blood Cell Count12.9 H 8.8 5.2 3.5 LNucleated Erythrocyte Count0.2 A 0.2 A Red Blood Cell Count2.79 L 2.65 L 2.49 L 2.60 LHGB9.4 L 9.0 L 8.6 L 9.0 LHCT27.9 L 26.5 L 25.0 L 26.2 PYVD463 100 100 101 HMCHC33.7 34.0 34.4 34.2WNA071 245 197 190RDW-CV13.7 13.6 13.2 13.7 Basic Metabolic Panel Trending View Zptcku32-Byq-8195 04:03:00 08-Jul-2017 07:37:00 07-Jul-2017 04:53:00Glucose, Keotm408 H 108 H 105 INO005 137 140K3.3 L 3.2 L 2.6 JHWH542 98 98Bicarbonate, Serum31 32 34 HAnion Gap, Serum9 L 10 02HVP41 11 47NPVGT3.66 0.66 0.62GFR-Non >60 >60 >60GFR->60 >60 >60Calcium, Serum7.5 L 7.6 L 7.6 LLab Comment: Samples collected at 0554 07/08/17. Potassium Called- RB pjEdwigemona Griffin on Med Surg, 07/07/2017 05:38 Magnesium, Serum Trending View Gwrskc26-Phx-8177 04:03:00 08-Jul-2017 05:30:00 07-Jul-2017 04:53:00Magnesium, Serum1.51 L 1.96 1.48 L Blood Gas, Arterial Trending View Nwjvxr77-Kdq-8898 05:10:00 06-Jul-2017 15:15:00pH, Arterial7.54 H 7.51 HpCO2, Fcaemgej47 40pO2, Hucozihc11 L 51 LPatient-Lqxmbhuhgaf27.0 37.5DCB068 28SO2, Yvwzrnrf06 93 LBase Excess-Blood11.5 H 8.2 HBicarbonate, Calculated, Fwqgctqm64.1 H 31.9 HSite of Arterial PunctureLEFT BRACHIAL LEFT BRACHIALAllen's Test (Collateral Circulation)NON-APPLICABLE NON-APPLICABLE Urinalysis 06-Jul-2017 12:08:00 ResultValueColor, Urine YELLOW Reference Range: STRAW,YELLOWAppearance, Urine CLEARSpecific Sulphur, Urine 1.008pH, Urine 5.0Protein, Urine NEGATIVEGlucose, Urine [...] 22.2 cm2LA Area A2C: 19.3 cm2LA [place] A4C: 5.9 cmLA [place] A2C: 5.4 cmLA Volume Index: 40.5 ml/m2RA VOLUME BY A/L METHOD: Normal Ranges:RA Vol A4C: 17.8 ml (8.3-19.5ml)RA Vol Index A4C: 11.5 ml/m2RA Area A4C: 9.6 cm2RA [place] A4C: 4.4 cmM-MODE MEASUREMENTS: Normal Ranges:Ao Root: [...] and chronic pain, who presented to the [facility] ED on 07/02/17 with sudden onset of [...] discharged from the general medical/surgical floor to skillednursing care for rehabilitation secondary to deconditioning as well ascontinued electrolyte replacement. # Physical Deconditioning- Admitted for half-way care, rehabilitation- PT/OT # S/p R Colectomy- Pain management: Continue home percocet q4h PRN mild pain, ordered Sbatmevmi6r PRN for moderate pain. D/C'd morphine and [...] Prophylaxis: Lovenox 40mg subcutaneous q24h Mike Olson [facility], PGY-1 Signatures/Attestation/Certi fication:Attending Provider ? Inpatient Certification StatementI certify that SNFservices are required to be given on an inpatient basis because of the abovenamed patient's need for half-way care on a continuing basis for thecondition(s) for which he/she was receiving inpatient hospital services priorto his/her transfer to the SNF. Electronic Signatures:Manny Arana) (Signed 09-Jul-2017 14:37)Authored: Signatures/Attestation/Certi ficationCo-Signer: History of Present Illness, Past Medical/Surgical History,Assessment and Plan, Signatures/Attestation/Certi johnationMike Olson (Resident)) (Signed 09-Jul-2017 09:56)Authored: History of Present Illness, Comorbidities, Past Medical/SurgicalHistory, Allergies, Review of Systems, Objective, Assessment and Plan,Signatures/Attestation/ Certification Last Updated: 09-Jul-2017 14:37 by Manny Arana) Normal [facility] MAGNESIUMon 07-09-2017 Magnesium mass conc 1.51 mg/dL Low 1.60 - 2.40 [facility] Comment on above: Performed By: #### L IPAS ####[facility] [place] [address] Patient Profile - Adult v2on 07-09-2017 Protein mass conc Profile:Initial Info :How to be AddressedNaomi(1)Spoken Language PreferredEnglish (1)Are you currently using the Personal Electronic Health Record or garbs(1)Stated Reason for Admissioninto muscle sickArrived Fromlong term carePatient BelongingsnoneMedications Brought to [facility]:Weight in kg47.7 kilogram(s)Weight in jef320.1 pound(s)Height in feet5 feetHeight in inches5 inch(es)Height in cm165.1 centimeter(s)BMI (kg/m2)17.499 square meterWeight Methodactual (measured)Scale TypebedHeight Methodstated RSP Based Care:How would you like to [...] Restoril: Drug, Confusion, Active Electronic Signatures:Antoinette Hernandez (CINTHYA) (Signed 09-Jul-2017 10:29)Authored: Profile, Additional Information Last Updated: 09-Jul-2017 10:29 by Antoinette Hernandez (CINTHYA) References:1. Data Referenced From "Patient Profile - Adult v2" 07/02/2017 8:49 PM Normal [facility] BASIC METABOLIC PANELon 05-3 Anion gap 3 molar conc 10 mmol/L Normal 10 - 20 [facility] Comment on above: Order Comment: Sampl es collected at 0554 07/08/17. Performed By: #### U AMIC ####[address] [place] [address] Calcium mass conc 7.6 mg/dL Low 8.6 - 10.3 [facility] Comment on above: Order Comment: Sampl es collected at [facility] 07/08/17. Performed By: #### U AMIC ####[address] [place] [address] Chloride molar conc 98 mmol/L Normal 98 - 107 [facility] Comment on above: Order Comment: Sampl es collected at [facility] 07/08/17. Performed By: #### U AMIC ####[address] [address] Creatinine mass conc 0.66 mg/dL Normal 0.50 - 1.05 [facility] Comment on above: Order Comment: Sampl es collected at [facility] 07/08/17. Performed By: #### U AMIC ####[address] [address] GFR- AM. >60 Normal >60 [facility] Comment on above: Order Comment: Sampl es collected at [facility] 07/08/17. Result Comment: CALC ULATIONS OF ESTIMATED GFR ARE PERFORMED USING THE MDRD STUDY EQUATION FOR THE IDMS-TRACEABLE CREATININE METHODS. CLIN CHEM 2007;53:766-72 Performed By: #### U AMIC ####[address] [address] GFR-NON AM. >60 Normal >60 [facility] Comment on above: Order Comment: Sampl es collected at [facility] 07/08/17. Performed By: #### U AMIC ####[address] [place] [address] Glucose mass conc 108 mg/dL High 74 - 99 [facility] Comment on above: Order Comment: Sampl es collected at [facility] 07/08/17. Performed By: #### U AMIC ####[address] [address] HCO3 molar conc (Bld) 32 mmol/L Normal 21 - 32 [facility] Comment on above: Order Comment: Sampl es collected at [facility] 07/08/17. Performed By: #### U AMIC ####[address] [address] Potassium molar conc 3.2 mmol/L Low 3.5 - 5.3 [facility] Comment on above: Order Comment: Sampl es collected at [facility] 07/08/17. Performed By: #### U AMIC ####[address] [address] Sodium molar conc 137 mmol/L Normal 136 - 145 [facility] Comment on above: Order Comment: Sampl es collected at [facility] 07/08/17. Performed By: #### U AMIC ####[address] [address] Urea nitrogen mass conc 11 mg/dL Normal 6 - 23 [facility] Comment on above: Order Comment: Sampl es collected at [facility] 07/08/17. Performed By: #### U AMIC ####[address] [address] CBCon 07-08-2017 Erythrocyte distribution width Auto Ratio (RBC) 13.6 % Normal 11.5 - 14.5 [facility] Comment on above: Performed By: #### U AMIC ####[address] [address] Hematocrit Auto Volume Fraction (Bld) 26.5 % Low 36.0 - 46.0 [facility] Comment on above: Performed By: #### U AMIC ####[address] [address] Hemoglobin mass conc (Bld) 9.0 g/dL Low 12.0 - 16.0 [facility] Comment on above: Performed By: #### U AMIC ####[address] [address] MCHC Auto mass conc (RBC) 34.0 g/dL Normal 32.0 - 36.0 [facility] Comment on above: Performed By: #### U AMIC ####[address] [address] MCV Auto Entitic volume (RBC) 100 fL Normal 80 - 100 [facility] Comment on above: Performed By: #### U AMIC ####[facility] [place] [address] Nucleated RBC/100 WBC Ratio (Bld) 0.2 /100 WBC Abnormal 0.0-0.0 [facility] Comment on above: Performed By: #### U AMIC ####[facility] [place] [address] Platelets Auto #/vol (Bld) 245 10*3/uL Normal 150 - 450 [facility] Comment on above: Performed By: #### U AMIC ####[facility] [place] [address] RBC Auto #/vol (Bld) 2.65 x10E12/L Low 4.00 - 5.20 [facility] Comment on above: Performed By: #### U AMIC ####[address] [place] [address] WBC Auto #/vol (Bld) 8.8 10*3/uL Normal 4.4 - 11.3 [facility] Comment on above: Performed By: #### U AMIC ####[address] [place] [address] Daily Progress Note-Surgeryo n 07-08-2017 Protein mass conc Service: Surgery [...] brown loose stoolovernight. Objective Data: Objective Information:T [id number]/729 6%Date/Time07/08 6: 6: 6: 6: 6:40Range(36.4C - [...] reviewed these laboratory results: Basic Metabolic Panel [[id number] 07:37:00]. Assessment and Plan: Admitting Dx:Cecal volvulus: [...] Updated: 08-Jul-2017 12:42 by Manny Arana) Normal [facility] HEMOGLOBIN A1Con 07-08-2017 Glucose mass conc 105 mg/dL Normal [facility] Comment on above: Performed By: #### L IPAS ####[address] [place] [address] Hemoglobin A1c/Hemoglobin.total mass fraction (Bld) 5.3 % Normal [facility] Comment on above: Result Comment: Diag nosis of Diabetes-Adults Non-Diabetic: < or = 5.6% Increased risk for developing diabetes: 5.7-6.4% Diagnostic of diabetes: > or = 6.5%. Monitoring of Diabetes Age (y) Therapeutic Goal (%) Adults: >18 <7.0 Pediatrics: 13-18 <7.5 7-12 <8.0 0- 6 7.5-8.5 [place] [employer]. Diabetes Care 33(S1), Feb 2009. Performed By: #### L IPAS ####[address] [address] MAGNESIUMon 07-08-2017 Magnesium mass conc 1.96 mg/dL Normal 1.60 - 2.40 [facility] Comment on above: Performed By: #### U AMIC ####[address] [place] [address] ARTERIAL BLOOD GASon 018 JACKIE'S TEST[COLLATERAL CIRCULATION] NON-APPLICABLE Normal [facility] Comment on above: Performed By: #### U AMIC ####[address] [place] [address] SITE OF ARTERIAL PUNCTURE LEFT BRACHIAL Normal [facility] Comment on above: Performed By: #### U AMIC ####[address] [place] [address] BASE EXCESS-BLOOD 11.5 mmol/L High -2.0 - 3.0 [facility] Comment on above: Performed By: #### U AMIC ####[address] [place] [address] FIO2 36 % Normal [facility] Comment on above: Performed By: #### U AMIC ####[facility] [place] [address] Oxygen ppres (BldA) 70 mm[Hg] Low 85 - 95 [facility] Comment on above: Performed By: #### U AMIC ####[address] [place] [address] PCO2 41 mmHg Normal 38 - 42 [facility] Comment on above: Performed By: #### U AMIC ####[address] [address] RBC Auto #/vol (Bld) 35.1 mmol/L High 22.0 - 26.0 [facility] Comment on above: Performed By: #### U AMIC ####[address] [address] SO2 97 % Normal 94 - 100 [facility] Comment on above: Performed By: #### U AMIC ####[address] [address] pH (Bld) 7.54 [pH] High 7.38 - 7.42 [facility] Comment on above: Performed By: #### U AMIC ####[address] [address] BASIC METABOLIC PANELon 05-2 Anion gap 3 molar conc 11 mmol/L Normal 10 - 20 [facility] Comment on above: Order Comment: Josselyn dowd Called- RB toJennifer Elias on Med Surg, 07/07/2017 05:38 Performed By: #### U A ####[address] [address] Calcium mass conc 7.6 mg/dL Low 8.6 - 10.3 [facility] Comment on above: Order Comment: Josselyn dowd Called- RB toJennifer Elias on Med Surg, 07/07/2017 05:38 Performed By: #### U A ####[address] [address] Chloride molar conc 98 mmol/L Normal 98 - 107 [facility] Comment on above: Order Comment: Josselyn dowd Called- RB toJennifer Elias on Med Surg, 07/07/2017 05:38 Performed By: #### U A ####[address] [address] Creatinine mass conc 0.62 mg/dL Normal 0.50 - 1.05 [facility] Comment on above: Order Comment: Josselyn dowd Called- RB toJennifer Elias on Med Surg, 07/07/2017 05:38 Performed By: #### U A ####[address] [address] GFR- AM. >60 Normal >60 [facility] Comment on above: Order Comment: Josselyn dowd Called- RB toJennifer Elias on Med Surg, 07/07/2017 05:38 Result Comment: CALC ULATIONS OF ESTIMATED GFR ARE PERFORMED USING THE MDRD STUDY EQUATION FOR THE IDMS-TRACEABLE CREATININE METHODS. CLIN CHEM 2007;53:766-72 Performed By: #### U A ####[address] [address] GFR-NON AM. >60 Normal >60 [facility] Comment on above: Order Comment: Josselyn dowd Called- RB toJennifer Elias on Med Surg, 07/07/2017 05:38 Performed By: #### U A ####[address] [address] Glucose mass conc 105 mg/dL High 74 - 99 [facility] Comment on above: Order Comment: Josselyn correiaum Called- RB toJennifer Elias on Med Surg, 07/07/2017 05:38 Performed By: #### U A ####[address] [address] HCO3 molar conc (Bld) 34 mmol/L High 21 - 32 [facility] Comment on above: Order Comment: Josselyn dowd Called- RB toJennifer Elias on Med Surg, 07/07/2017 05:38 Performed By: #### U A ####[address] [address] Potassium molar conc 2.6 mmol/L Critically low 3.5 - 5.3 [facility] Comment on above: Order Comment: Josselyn correiaum Called- RB toJennifer Elias on Med Surg, 07/07/2017 05:38 Result Comment: Hafsa ssium Called- RB toJennifer Elias on Med Surg, 07/07/2017 05:38 Performed By: #### U A ####[address] [address] Sodium molar conc 140 mmol/L Normal 136 - 145 [facility] Comment on above: Order Comment: Josselyn correiaum Called- RB toJennifer Elias on Med Surg, 07/07/2017 05:38 Performed By: #### U A ####[address] [address] Urea nitrogen mass conc 11 mg/dL Normal 6 - 23 [facility] Comment on above: Order Comment: Josselyn dowd Called- RB toJennifer Elias on Med Surg, 07/07/2017 05:38 Performed By: #### U A ####[address] [address] CBCon 07-07-2017 Erythrocyte distribution width Auto Ratio (RBC) 13.2 % Normal 11.5 - 14.5 [facility] Comment on above: Performed By: #### U A ####[address] [address] Hematocrit Auto Volume Fraction (Bld) 25.0 % Low 36.0 - 46.0 [facility] Comment on above: Performed By: #### U A ####[address] [address] Hemoglobin mass conc (Bld) 8.6 g/dL Low 12.0 - 16.0 [facility] Comment on above: Performed By: #### U A ####[address] [address] MCHC Auto mass conc (RBC) 34.4 g/dL Normal 32.0 - 36.0 [facility] Comment on above: Performed By: #### U A ####[facility] [place] [address] MCV Auto Entitic volume (RBC) 100 fL Normal 80 - 100 [facility] Comment on above: Performed By: #### U A ####[facility] [place] [address] Platelets Auto #/vol (Bld) 197 10*3/uL Normal 150 - 450 [facility] Comment on above: Performed By: #### U A ####[facility] [place] [address] RBC Auto #/vol (Bld) 2.49 x10E12/L Low 4.00 - 5.20 [facility] Comment on above: Performed By: #### U A ####[facility] [place] [address] WBC Auto #/vol (Bld) 5.2 10*3/uL Normal 4.4 - 11.3 [facility] Comment on above: Performed By: #### U A ####[facility] [place] [address] CHEST 1 VIEWon 07-07-2017 CHEST 1 VIEW [...] laterally andcephalad.Electronically signed by: GAEL CRUZ MD Normal [facility] Daily Progress Note-Radha esteves 07-07-2017 Protein mass conc Service: CardiologySubjective Data:KATHERINE [...] night.Objective Data:Objective Information: T P R BP ZfP9Bfaxw 36.4 78 18 155/73 97%Date/Time 07/07 14:10 [...] Panel 07-Jul-2017 04:53:00Result ValueLab Comment: Potassium Called- HANNY Griffin on Med Surg, 07/07/2017 05:38Glucose, Serum [...] right colectomy-pain meds-encourage IS-Lovenox for DVT prophylaxis2. Qxxcujqqpfbt-hyvlty-secx metoprolol, lisinopril, and Imdur-cont to monitor closely3. [...] Updated: 07-Jul-2017 21:46 by Ventura Thacker) Normal [facility] Daily Progress Note-Surgeryo n 07-07-2017 Protein mass conc Service: SurgerySubj [...] pain.Objective Data:Objective Information: T P R BP HtZ6Wbzxd 36.6 75 20 152/84 98%Date/Time 07/07 6:48 [...] Updated: 07-Jul-2017 13:55 by Manny Arana) Normal [facility] Discharge Cngvypz7hm 05-29-2 018 Protein mass conc Discharge Orders:Ant icipated Discharge Date:? 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 Hypokalemia: Catalog Name: Hypokalemia Hospital Providers:Provider RoleProvider Name? AttendingManny Arana? ConsultingVentura Thacker? ConsultingManny Arana? [facility] Course (Home Care/Gold Form):Hospital Course:? Hospital Course: [...] 1.96 (07/08), 1.51 (07/09) 07/09/17: Discharge to half-way care for rehabilitation 2/ todeconditioning as well [...] Therapy Orders:? Occupational Therapy OrdersEval and Treat ([facility]) 2times/day? Physical Therapy OrdersEval and Treat ([facility]) 2times/day Provider Follow Up:? Physician To Follow at Skilled/RehabAttending Physician at Skilled/Rehab Provider FINAL REVIEW of Orders:Final Review:? Final Review of Medication Reconciliation and Orders Completedby Physician? Reviewing ProviderMike Olson DO (Resident) at 09-Jul-2017 07:42:04 Gold Form - Tree Tapping Laborer Summary:Referral Information:? Referral [facility]? Referring Facility [facility]? Contact Sebastian Chaudhari RN (Want Ad Clerk)? Contact Phone [phone] Medicare/Medicaid:? Medicare [id number] Social Security:? Social Security [id number] Mental & Functional Status:? Mental/Behavioral Statusalert? Functional Status Prior To Admissionindependent? Capacity For Independent Living/Senior Care Planreturn home? Mental/Functional Commentalert and oriented x3 Electronic Signatures:Manny Arana () (Signed 08-Jul-2017 12:35)Authored: Gold Form Orders, Provider FINAL REVIEW of OrdersCo-Signer: Gold Form OrdersSom Chaudhari (CLIN COOR) (Signed 07-Jul-2017 15:04)Authored: Gold Form - Tree Tapping Laborer SummaryMike Olson ( (Resident)) (Signed 09-Jul-2017 07:42)Authored: Discharge Orders, Hospital Course (Home Care/Gold Form), ProviderFINAL REVIEW of OrdersWanda Muller (CLIN COOR) (Signed 08-Jul-2017 16:40)Authored: Gold Form Orders, Gold Form - Tree Tapping Laborer Summary Last Updated: 09-Jul-2017 07:42 by Mike Olson ( (Resident)) Normal [facility] EMR ADDONon 07-07-2017 ADDON CONFIRMATION REQUEST REC'D Normal [facility] Comment on above: Performed By: #### U AMIC ####[address] [place] [address] MAGNESIUMon 07-07-2017 Magnesium mass conc 1.48 mg/dL Low 1.60 - 2.40 [facility] Comment on above: Performed By: #### U AMIC ####[address] [place] [address] ARTERIAL BLOOD GASon 018 JACKIE'S TEST[COLLATERAL CIRCULATION] NON-APPLICABLE Normal [facility] Comment on above: Performed By: #### U A ####[address] [place] [address] SITE OF ARTERIAL PUNCTURE LEFT BRACHIAL Normal [facility] Comment on above: Performed By: #### U A ####[address] [place] [address] BASE EXCESS-BLOOD 8.2 mmol/L High -2.0 - 3.0 [facility] Comment on above: Performed By: #### U A ####[address] [address] FIO2 28 % Normal [facility] Comment on above: Performed By: #### U A ####[address] [place] [address] Oxygen ppres (BldA) 51 mm[Hg] Low 85 - 95 [facility] Comment on above: Performed By: #### U A ####[address] [address] PCO2 40 mmHg Normal 38 - 42 [facility] Comment on above: Performed By: #### U A ####[address] [address] RBC Auto #/vol (Bld) 31.9 mmol/L High 22.0 - 26.0 [facility] Comment on above: Performed By: #### U A ####[address] [address] SO2 93 % Low 94 - 100 [facility] Comment on above: Performed By: #### U A ####[address] [address] pH (Bld) 7.51 [pH] High 7.38 - 7.42 [facility] Comment on above: Performed By: #### U A ####[address] [address] BNPon 07-06-2017 Natriuretic peptide B mass conc (Bld) 760 pg/mL High 0 - 99 [facility] Comment on above: Result Comment: . <1 00 pg/mL - Heart failure -537 pg/mL - Intermediate probability of acute heart. failure exacerbation. Correlate with clinical. context and patient history. >=300 pg/mL - Heart Failure likely. Correlate with clinical. context and patient history.BNP testing is performed using different testingmethodology [facility] than [facility]. Direct result comparisons shouldonly be made within the same method. Performed By: #### U A ####[address] [address] CBCon 07-06-2017 Erythrocyte distribution width Auto Ratio (RBC) 13.7 % Normal 11.5 - 14.5 [facility] Comment on above: Performed By: #### C BCDF ####[address] [address] Hematocrit Auto Volume Fraction (Bld) 26.2 % Low 36.0 - 46.0 [facility] Comment on above: Performed By: #### C BCDF ####[address] [address] Hemoglobin mass conc (Bld) 9.0 g/dL Low 12.0 - 16.0 [facility] Comment on above: Performed By: #### C BCDF ####[address] [address] MCHC Auto mass conc (RBC) 34.4 g/dL Normal 32.0 - 36.0 [facility] Comment on above: Performed By: #### C BCDF ####[address] [address] MCV Auto Entitic volume (RBC) 101 fL High 80 - 100 [facility] Comment on above: Performed By: #### C BCDF ####[address] [address] Platelets Auto #/vol (Bld) 190 10*3/uL Normal 150 - 450 [facility] Comment on above: Performed By: #### C BCDF ####[address] [address] RBC Auto #/vol (Bld) 2.60 x10E12/L Low 4.00 - 5.20 [facility] Comment on above: Performed By: #### C BCDF ####[address] [address] WBC Auto #/vol (Bld) 3.5 10*3/uL Low 4.4 - 11.3 [facility] Comment on above: Performed By: #### C BCDF ####[address] [address] CHEST 1 VIEWon 07-06-2017 CHEST 1 VIEW [...] isrecommended.Electronically signed by: SUHAIL ALMANZA MD Normal [facility] CT HEAD WO CONTRASTon 2017 CT HEAD WO CONTRAST Name: KATHERINE JUDGE STUDY:CT HEAD WO CONTRAST; 07/06/2017 1:22 [...] skull fracture.Electronically signed by: SUHAIL ALMANZA MD Normal [facility] Daily Progress Note-Cardiolo gyon 07-06-2017 Protein mass conc Service: CardiologySubjective Data:KATHERINE [...] ativanObjective Data:Objective Information: T P R BP PwT1Eqkkz 36.8 101 18 173/87 94%Date/Time 07/06 7:15 [...] contusions or wounds, noclubbingNeurological: alert and oriented l8Putecjtgvbyzd: Appropriate mood and behaviorSkin: Warm and dryMedication:Medications: [...] 2.60 LHGB 9.0 LHCT 26.2 LMCV 101 [facility] 34.4PLT 190RDW-CV 13.7Troponin I, Serum 06-Jul-2017 05:45:00Result [...] right colectomy-pain meds-encourage IS-Lovenox for DVT prophylaxis2. Rrcsmblemuvb-bppxrx-okoi metoprolol, lisinopril, and Imdur-cont to monitor closely3. [...] Updated: 06-Jul-2017 09:54 by Ventura Thacker) Normal [facility] Daily Progress Note-Melly merino 07-06-2017 Protein mass conc Service: SurgerySubj ective Data:KATHERINE JUDGE is a 82 year old Female who is Hospital Day # 5 and POD #3 forUS GUIDED PLACEMENT LEFT IJ TLC / ELAP / ANDREIA / RIGHT COLECTOMY / STAPLEDILEOCOLONIC ANASTAMOSIS / BILATERAL TAP BLOCK.CONFUSED SINCE THIS AM / TACHYPNEA / NO FLATUS / NO NAUSEA.Objective Data:Objective Information: T P R BP KvZ7Ttbka 36.4 88 16 147/71 97%Date/Time 07/05 20:00 07/05 20:07/05 20:07/05 20:0:00Range (36.4C - 36.4C ) (79 [...] reviewed these laboratory results: Complete Blood Count [[id number] 05:18:00], Basic Metabolic Panel [Drawn 05-Jul-2017 05:18:00].Radiology [...] ationLast Updated: 06-Jul-2017 07:42 by Manny Arana) [facility] Nutrition Therapy-Follow Upo n 07-06-2017 Nutrition Therapy-Follow Up Assessment Subjective/Objective:Note Type: Follow UpNote Authored by: Registered Dietitian NutritionistPager Number: [phone] Note:The patient is a 82 year old [...] obstruction (disorder): Acute bowel obstruction: Onset Date: 76-Frb-0373Iceeqvisn Information:---- Intake and Output -----Mn/Dy/Year Time Intake Output NetMay 2017 2:00 pm 725 250 475May 2017 6:00 am 0 2 -2May 2017 10:00 pm 253 0 253The Intake and Output Totals for the last 24 hours are: Intake Output Net [phone] [phone] T P R BP UyK7Hnsak 37 83 16 154/75 94%Date/Time 07/06 14:17 07/06 14:17 07/06 14:07/06 14:4:17Range (36.4C - 37C ) (83 - 101 ) (16 - 18 ) (147 - 173 )/ (71 - 87 ) (94%- 97% ) As of 05-Jul-2017 20:00:00, patient is on 3 L/min of oxygen via nasal cannula.Highest temp of 37 C was recorded at 07/06 14: Weights07/06 5:00: Weight in kg (Weight (kg)) 54.65/ 5:00: Weight in lbs ((lbs)) 120.3Height/Weight:Height in [...] Urine YELLOW Reference Range: STRAW,YELLOWAppearance, Urine CLEARSpecific Sulphur, Urine 1.008pH, Urine 5.0Protein, Urine NEGATIVEGlucose, Urine [...] Clinician Notes: TO START AT 1700 07/06/17, 78-Iic-3070Vglquqaaw Orders: Clear Liquid Diet, Routine, 05-Jul-2017 Oral Nutritional Supplements, Routine Resource Breeze Flavor Preference: [place]; [place], 2 Times a Day Special Instructions: Please send Boost Breeze orange at breakfast and BoostBreeze [place] at dinner, 06-Jul-2017 Pro-Stat 101, Oral - Administer as a scheduled medication. Pour packet into a30 ML medicine cup. Tube Feeding - Standard flush before and afteradministering 3 Times a Day Routine 1 PO (Oral), [id number]-2473Ajtl/Nutrition Related History:Change in Oral Intake/Appetite: increase -Diet [...] Breeze BID, Prostat TIDCoordination of Care with: Virginia White RNNutrition Goals:Goals: Nutrition Therapy: less than 5 [...] this time.Electronic Signatures:Silvia Tyler (DEEPA HENRIQUEZ) (Signed 06-Jul-2017 17:56) Authored: Assessment Subjective/Objective, Nutrition Focused PhysicalFindings, Estimated Needs, Nutrition Diagnosis, Nutrition Interventions,Nutrition Goals, Nutrition Recommendations, Dietitian Monitoring and EvaluationPlan, Diet EducationLast Updated: 06-Jul-2017 17:56 by Silvia Tyler ([place]OR[place], DEEPA) Normal [facility] TROPONIN Ion 07-06-2017 Troponin I.cardiac mass conc 0.02 ng/mL Normal 0.00 - 0.03 [facility] Comment on above: [...] testing is performed using differenttesting methodology at [facility] than [facility]. Direct result comparisons should onlybe made within the same method. Performed By: #### C BCDF ####[address] [address] UA MICROSCOPICon 07-06-2017 BACTERIA 1+ /HPF Abnormal [facility] Comment on above: Performed By: #### U A ####[address] [address] HYALINE CAST 1+ /LPF Abnormal [facility] Comment on above: Performed By: #### U A ####[address] [address] MUCUS 1+ /LPF Normal [facility] Comment on above: Performed By: #### U A ####[address] [address] RBC Test strip #/vol (U) 0-5 Normal 0-5 [facility] Comment on above: Performed By: #### U A ####[address] [address] SQUAMOUS EPITH. CELLS FEW Normal [facility] Comment on above: Performed By: #### U A ####[address] [address] TRANSITIONAL EPITH.CELLS FEW Normal [facility] Comment on above: Performed By: #### U A ####[address] [address] WBC 0-5 Normal 0-5 [facility] Comment on above: Performed By: #### U A ####[address] [address] URINALYSISon 07-06-2017 APPEARANCE CLEAR Normal CLEAR [facility] Comment on above: Performed By: #### U A ####[address] [address] BILIRUBIN Negative Normal NEGATIVE [facility] Comment on above: Performed By: #### U A ####[address] [address] BLOOD MODERATE(2+) Abnormal NEGATIVE [facility] Comment on above: Performed By: #### U A ####[address] [place] [address] COLOR YELLOW Normal STRAW,YELL OW [facility] Comment on above: Performed By: #### U A ####[address] [place] [address] GLUCOSE Negative Normal NEGATIVE [facility] Comment on above: Performed By: #### U A ####[address] [address] KETONES 5(Trace) Abnormal NEGATIVE [facility] Comment on above: Performed By: #### U A ####[address] [address] LEUKOCYTE ESTERASE TRACE Abnormal NEGATIVE [facility] Comment on above: Performed By: #### U A ####[address] [address] NITRITE Negative Normal NEGATIVE [facility] Comment on above: Performed By: #### U A ####[address] [address] pH 5.0 Normal 5.0 - 8.0 [facility] Comment on above: Performed By: #### U A ####[address] [address] Protein mass conc Negative Normal NEGATIVE [facility] Comment on above: Performed By: #### U A ####[address] [address] SPECIFIC GRAVITY 1.008 Normal 1.005 - 1.035 [facility] Comment on above: Performed By: #### U A ####[address] [address] UROBILINOGEN <2.0 Normal 0.0 - 1.9 [facility] Comment on above: Performed By: #### U A ####[address] [address] BASIC METABOLIC PANELon 05-2 Anion gap 3 molar conc 11 mmol/L Normal 10 - 20 [facility] Comment on above: Performed By: #### C BCDF ####[address] [address] Calcium mass conc 7.7 mg/dL Low 8.6 - 10.3 [facility] Comment on above: Performed By: #### C BCDF ####[address] [address] Chloride molar conc 106 mmol/L Normal 98 - 107 [facility] Comment on above: Performed By: #### C BCDF ####[address] [address] Creatinine mass conc 0.74 mg/dL Normal 0.50 - 1.05 [facility] Comment on above: Performed By: #### C BCDF ####[address] [address] GFR- AM. >60 Normal >60 [facility] Comment on above: Result Comment: CALC ULATIONS OF ESTIMATED GFR ARE PERFORMED USING THE MDRD STUDY EQUATION FOR THE IDMS-TRACEABLE CREATININE METHODS. CLIN CHEM 2007;53:766-72 Performed By: #### C BCDF ####[address] [address] GFR-NON AM. >60 Normal >60 [facility] Comment on above: Performed By: #### C BCDF ####[address] [address] Glucose mass conc 90 mg/dL Normal 74 - 99 [facility] Comment on above: Performed By: #### C BCDF ####[address] [address] HCO3 molar conc (Bld) 26 mmol/L Normal 21 - 32 [facility] Comment on above: Performed By: #### C BCDF ####[address] [place] [address] Potassium molar conc 3.9 mmol/L Normal 3.5 - 5.3 [facility] Comment on above: Performed By: #### C BCDF ####[address] [address] Sodium molar conc 139 mmol/L Normal 136 - 145 [facility] Comment on above: Performed By: #### C BCDF ####[address] [address] Urea nitrogen mass conc 17 mg/dL Normal 6 - 23 [facility] Comment on above: Performed By: #### C BCDF ####[address] [place] [address] CBCon 07-05-2017 Erythrocyte distribution width Auto Ratio (RBC) 14.1 % Normal 11.5 - 14.5 [facility] Comment on above: Performed By: #### C BCDF ####[address] [address] Hematocrit Auto Volume Fraction (Bld) 24.0 % Low 36.0 - 46.0 [facility] Comment on above: Performed By: #### C BCDF ####[address] [address] Hemoglobin mass conc (Bld) 8.0 g/dL Low 12.0 - 16.0 [facility] Comment on above: Performed By: #### C BCDF ####[address] [address] MCHC Auto mass conc (RBC) 33.3 g/dL Normal 32.0 - 36.0 [facility] Comment on above: Performed By: #### C BCDF ####[address] [address] MCV Auto Entitic volume (RBC) 103 fL High 80 - 100 [facility] Comment on above: Performed By: #### C BCDF ####[address] [address] Platelets Auto #/vol (Bld) 149 10*3/uL Low 150 - 450 [facility] Comment on above: Performed By: #### C BCDF ####[address] [address] RBC Auto #/vol (Bld) 2.33 x10E12/L Low 4.00 - 5.20 [facility] Comment on above: Performed By: #### C BCDF ####[address] [address] WBC Auto #/vol (Bld) 6.6 10*3/uL Normal 4.4 - 11.3 [facility] Comment on above: Performed By: #### C BCDF ####[facility] [place] [address] Daily Progress Note-Radha linn 07-05-2017 Protein mass conc Service: CardiologySubjective Data:KATHERINE [...] night.Objective Data:Objective Information: T P R BP HhW6Kbdzd 36.4 83 16 158/70 96%Date/Time 07/05 8:00 07/05 11:00 07/05 11:00 07/05 11:1:00Range (36.4C - 36.9C ) (75 - [...] contusions or wounds, noclubbingNeurological: alert and oriented c3Hwaixgcpqzuqt: Appropriate mood and behaviorSkin: Warm and dryMedication:Medications:CA [...] critical information above was relayed directly by Offerti bytelephone to Remy Paniagua RN on 07/03/2017 [...] NSTEMI (non-ST elevated myocardial infarction): Entered Date: [id number] UTI (urinary tract infection), bacterial: Entered Date: [...] bowel obstruction: Onset Date: 11-Feb-2012, Entered Date: 88-Yuz-014638:56 Generalized abdominal pain (finding): Entered Date: 11-Feb-2012 [...] ST Elevation Myocardial Infarction (NSTEMI): Entered Date: 72-Myt-251525:29 Coronary angioplasty/stent (PCI): Entered Date: 12-Dec-2009 15:30 Dyspnea: Entered Date: 12-Dec-2009 12:38 Coronary atherosclerosis: Entered Date: 12-Dec-2009 12:38 Left heart catheterization: Entered Date: 12-Dec-2009 12:36 Hypotension: Entered Date: 09-Sep-2009 15:03 Sepsis: Entered Date: 01-Aug-2009 02:21 Venous thromboembolism: Entered Date: 31-Jul-2009 14:57Comorbidities:Comorbidi ty: anemiaAnemia: acute blood loss anemiaAssessment:1. Cecal volvulus s/p right colectomy-pain meds-encourage IS-Lovenox for DVT prophylaxis2. Eynhbmfesdhv-ijnsne-dulm metoprolol, lisinopril, and Imdur-cont to monitor closely3. [...] Signatures:Ventura Thacker) (Signed 06-Jul-2017 07:33) Authored: Signature/Cosignature/Attest christina Co-Signer: Service, Subjective Data, Objective Data, Assessment and Plan,Signature/Cosignature/A April Mcdonald (CHILD DAY CARE TEACHER-CONTROL CABINET ASSEMBLER) (Signed 05-Jul-2017 12:38) Authored: Service, Subjective Data, Objective Data, Assessment and Plan,Signature/Cosignature/A ttestationLast Updated: 06-Jul-2017 07:33 by Ventura Thacker) Normal [facility] Daily Progress Note-Melly merino 07-05-2017 Protein mass conc Service: SurgerySubj ective Data:KATHERINE JUDGE is a 82 year old Female who is Hospital Day # 4 and POD #2 forUS GUIDED PLACEMENT LEFT IJ TLC / ELAP / ANDREIA / RIGHT COLECTOMY / STAPLEDILEOCOLONIC ANASTAMOSIS / BILATERAL TAP BLOCK.Additional Information:Pain is improving. Still passing some flatus. Remains afebrile.Objective Data:Objective Information: T P R BP EcA3Gwycs 36.9 83 25 143/64 96%Date/Time 07/05 4:00 [...] CABGx2, anemia, HTN, SBO s/p ex lap [id number] admitted to the ICU for cecal volvulus, SBO, s/p right colectomy POD #2.cecal volvulus (resolved) s/p right colectomy-await bowel function, no laxatives due to ileus-abdominal XR showed possible ileus-Lasix 10mg IV then d/c soto for abdominal distention-Protonix 40mg IV daily-Percocet 5/325mg PO z8e-wigfyamo LR drip to 40ml/hr-encourage sips of water on clear liquid diet-transfer patient to general medical floorSignature/Cosignature/A ttestation:Comments/ Additional FindingsTx to floorElectronic Signatures:Manny Arana) (Signed 05-Jul-2017 10:17) Authored: Signature/Cosignature/Attest ation Co-Signer: Service, Subjective Data, Objective Data, Assessment and PlanAltagracia Trammell (GLENDA) (Signed 05-Jul-2017 07:56) Authored: Service, Subjective Data, Objective Data, Assessment and PlanLast Updated: 05-Jul-2017 10:17 by Manny Arana) Normal [facility] ABDOMEN AP VIEWon 07-04-2017 ABDOMEN AP VIEW Name: KATHERINE JUDGE STUDY: ABDOMEN AP VIEW; 07/04/2017 9:10 am INDICATION:Signs/Symptoms: [...] Electronically signed by: ALTAGRACIA MELO MD Normal [facility] BASIC METABOLIC PANELon 05-2 Anion gap 3 molar conc 11 mmol/L Normal 10 - 20 [facility] Comment on above: Performed By: #### B MP ####[address] [place] [address] Calcium mass conc 8.0 mg/dL Low 8.6 - 10.3 [facility] Comment on above: Performed By: #### B MP ####[address] [place] [address] Chloride molar conc 103 mmol/L Normal 98 - 107 [facility] Comment on above: Performed By: #### B MP ####[address] [place] [address] Creatinine mass conc 1.37 mg/dL High 0.50 - 1.05 [facility] Comment on above: Performed By: #### B MP ####[address] [address] GFR- AM. 45 mL/min/1.73m2 Abnormal >60 [facility] Comment on above: Result Comment: CALC ULATIONS OF ESTIMATED GFR ARE PERFORMED USING THE MDRD STUDY EQUATION FOR THE IDMS-TRACEABLE CREATININE METHODS. CLIN CHEM 2007;53:766-72 Performed By: #### B MP ####[address] [address] GFR-NON AM. 37 mL/min/1.73m2 Abnormal >60 [facility] Comment on above: Performed By: #### B MP ####[address] [place] [address] Glucose mass conc 111 mg/dL High 74 - 99 [facility] Comment on above: Performed By: #### B MP ####[address] [place] [address] HCO3 molar conc (Bld) 28 mmol/L Normal 21 - 32 [facility] Comment on above: Performed By: #### B MP ####[address] [address] Potassium molar conc 4.3 mmol/L Normal 3.5 - 5.3 [facility] Comment on above: Performed By: #### B MP ####[address] [place] [address] Sodium molar conc 138 mmol/L Normal 136 - 145 [facility] Comment on above: Performed By: #### B MP ####[address] [place] [address] Urea nitrogen mass conc 34 mg/dL High 6 - 23 [facility] Comment on above: Performed By: #### B MP ####[address] [address] CBCon 07-04-2017 Erythrocyte distribution width Auto Ratio (RBC) 13.8 % Normal 11.5 - 14.5 [facility] Comment on above: Performed By: #### C BC ####[address] [address] Hematocrit Auto Volume Fraction (Bld) 27.1 % Low 36.0 - 46.0 [facility] Comment on above: Performed By: #### C BC ####[address] [address] Hemoglobin mass conc (Bld) 9.3 g/dL Low 12.0 - 16.0 [facility] Comment on above: Performed By: #### C BC ####[address] [address] MCHC Auto mass conc (RBC) 34.3 g/dL Normal 32.0 - 36.0 [facility] Comment on above: Performed By: #### C BC ####[address] [address] MCV Auto Entitic volume (RBC) 101 fL High 80 - 100 [facility] Comment on above: Performed By: #### C BC ####[address] [address] Platelets Auto #/vol (Bld) 169 10*3/uL Normal 150 - 450 [facility] Comment on above: Performed By: #### C BC ####[address] [address] RBC Auto #/vol (Bld) 2.68 x10E12/L Low 4.00 - 5.20 [facility] Comment on above: Performed By: #### C BC ####[facility] [place] [address] WBC Auto #/vol (Bld) 6.3 10*3/uL Normal 4.4 - 11.3 [facility] Comment on above: Performed By: #### C BC ####[facility] [place] [address] Daily Progress Note-Radha handymayra 07-04-2017 Protein mass conc Service: CardiologySubjective Data:KATHERINE [...] last 24 hours are: Intake Output Net 2679 750 1929 T P R BP EiA9Szgxg 36.2 82 22 131/63 94%Date/Time 07/04 12:07/04 12:07/04 12:07/04 12:2:00Range (36.2C - 37.1C ) (81 [...] contusions or wounds, noclubbingNeurological: alert and oriented s6Rmkmnjrwpbgjs: Appropriate mood and behaviorSkin: Warm and dryMedication:Medications: [...] right colectomy-pain meds-encourage IS-Lovenox for DVT prophylaxis2. Gylzukasbjmy-jgcsty-xzec metoprolol IV until able to take PO-cont [...] Updated: 04-Jul-2017 12:14 by Ventura Thacker) Normal [facility] Daily Progress Note-Melly merino 07-04-2017 Protein mass conc Service: SurgerySubj ective [...] last 24 hours are: Intake Output Net 2679 750 1929 T P R BP SpC9Ozbaw 36.5 86 15 163/71 98%Date/Time 07/04 4:00 [...] Updated: 04-Jul-2017 07:48 by Manny Arana) Normal [facility] LACTATEon 07-04-2017 Lactate molar conc 0.9 mmol/L Normal 0.4 - 2.0 [facility] Comment on above: Result Comment: Hali puncture immediately after or during the administration of Metamizole may lead to falsely low results. Testing should be performed immediately prior to Metamizole dosing. Performed By: #### L ACT ####[address] [address] ARTERIAL BLOOD GASon 018 JACKIE'S TEST[COLLATERAL CIRCULATION] Positive Normal [facility] Comment on above: Result Comment: abg done on vent asv mode 100% mv, 60% fio2. results given to nurse remy leach Performed By: #### L IPID ####[address] [address] SITE OF ARTERIAL PUNCTURE RIGHT RADIAL Normal [facility] Comment on above: Performed By: #### L IPID ####[address] [address] BASE EXCESS-BLOOD -0.7 mmol/L Normal -2.0 - 3.0 [facility] Comment on above: Performed By: #### L IPID ####[address] [address] FIO2 60 % Normal [facility] Comment on above: Performed By: #### L IPID ####[address] [address] Oxygen ppres (BldA) 109 mm[Hg] High 85 - 95 [facility] Comment on above: Performed By: #### L IPID ####[address] [address] PCO2 36 mmHg Low 38 - 42 [facility] Comment on above: Performed By: #### L IPID ####[address] [address] RBC Auto #/vol (Bld) 23.4 mmol/L Normal 22.0 - 26.0 [facility] Comment on above: Performed By: #### L IPID ####[address] [address] SO2 98 % Normal 94 - 100 [facility] Comment on above: Performed By: #### L IPID ####[facility] [place] [address] pH (Bld) 7.42 [pH] Normal 7.38 - 7.42 [facility] Comment on above: Performed By: #### L IPID ####[facility] [place] [address] CBCon 07-03-2017 Erythrocyte distribution width Auto Ratio (RBC) 13.9 % Normal 11.5 - 14.5 [facility] Comment on above: Performed By: #### V TDOH ####[facility] [place] [address] Hematocrit Auto Volume Fraction (Bld) 38.6 % Normal 36.0 - 46.0 [facility] Comment on above: Performed By: #### V TDOH ####[facility] [place] [address] Hemoglobin mass conc (Bld) 12.7 g/dL Normal 12.0 - 16.0 [facility] Comment on above: Performed By: #### V TDOH ####[facility] [place] [address] MCHC Auto mass conc (RBC) 32.9 g/dL Normal 32.0 - 36.0 [facility] Comment on above: Performed By: #### V TDOH ####[facility] [place] [address] MCV Auto Entitic volume (RBC) 102 fL High 80 - 100 [facility] Comment on above: Performed By: #### V TDOH ####[facility] [place] [address] Platelets Auto #/vol (Bld) 214 10*3/uL Normal 150 - 450 [facility] Comment on above: Performed By: #### V TDOH ####[facility] [place] [address] RBC Auto #/vol (Bld) 3.79 x10E12/L Low 4.00 - 5.20 [facility] Comment on above: Performed By: #### V TDOH ####[facility] [place] [address] WBC Auto #/vol (Bld) 6.4 10*3/uL Normal 4.4 - 11.3 [facility] Comment on above: Performed By: #### V TDOH ####[facility] [place] [address] Erythrocyte distribution width Auto Ratio (RBC) 13.8 % Normal 11.5 - 14.5 [facility] Comment on above: Performed By: #### L IPID ####[address] [place] [address] Hematocrit Auto Volume Fraction (Bld) 43.6 % Normal 36.0 - 46.0 [facility] Comment on above: Performed By: #### L IPID ####[address] [address] Hemoglobin mass conc (Bld) 14.2 g/dL Normal 12.0 - 16.0 [facility] Comment on above: Performed By: #### L IPID ####[address] [address] MCHC Auto mass conc (RBC) 32.6 g/dL Normal 32.0 - 36.0 [facility] Comment on above: Performed By: #### L IPID ####[address] [address] MCV Auto Entitic volume (RBC) 103 fL High 80 - 100 [facility] Comment on above: Performed By: #### L IPID ####[address] [address] Platelets Auto #/vol (Bld) 236 10*3/uL Normal 150 - 450 [facility] Comment on above: Performed By: #### L IPID ####[address] [address] RBC Auto #/vol (Bld) 4.24 x10E12/L Normal 4.00 - 5.20 [facility] Comment on above: Performed By: #### L IPID ####[facility] [place] [address] WBC Auto #/vol (Bld) 4.7 10*3/uL Normal 4.4 - 11.3 [facility] Comment on above: Performed By: #### L IPID ####[facility] [place] [address] CHEST 1 VIEWon 07-03-2017 CHEST 1 VIEW [...] verification.Electronically signed by: BLU ACEVEDO MD Normal [facility] COMPREHENSIVE PANELon 2017 Albumin mass conc 2.7 g/dL Low 3.4 - 5.0 [facility] Comment on above: Performed By: #### V TDOH ####[facility] [place] [address] ALP enzyme act/vol 36 U/L Normal 33 - 136 [facility] Comment on above: Performed By: #### V TDOH ####[facility] [place] [address] ALT enzyme act/vol 19 U/L Normal 7 - 45 [facility] Comment on above: Result Comment: Daniel ents treated with Sulfasalazine may generate falsely decreased results for ALT. Performed By: #### V TDOH ####[facility] [place] [address] Anion gap 3 molar conc 14 mmol/L Normal 10 - 20 [facility] Comment on above: Performed By: #### V TDOH ####[facility] [place] [address] AST enzyme act/vol 21 U/L Normal 9 - 39 [facility] Comment on above: Performed By: #### V TDOH ####[facility] [place] [address] Bilirubin mass conc 1.1 mg/dL Normal 0.0 - 1.2 [facility] Comment on above: Performed By: #### V TDOH ####[facility] [place] [address] Calcium mass conc 8.3 mg/dL Low 8.6 - 10.3 [facility] Comment on above: Performed By: #### V TDOH ####[facility] [place] [address] Chloride molar conc 105 mmol/L Normal 98 - 107 [facility] Comment on above: Performed By: #### V TDOH ####[facility] [place] [address] Creatinine mass conc 1.12 mg/dL High 0.50 - 1.05 [facility] Comment on above: Performed By: #### V TDOH ####[facility] [place] [address] GFR- AM. 57 mL/min/1.73m2 Abnormal >60 [facility] Comment on above: Result Comment: CALC ULATIONS OF ESTIMATED GFR ARE PERFORMED USING THE MDRD STUDY EQUATION FOR THE IDMS-TRACEABLE CREATININE METHODS. CLIN CHEM 2007;53:766-72 Performed By: #### V TDOH ####[facility] [place] [address] GFR-NON AM. 47 mL/min/1.73m2 Abnormal >60 [facility] Comment on above: Performed By: #### V TDOH ####[facility] [place] [address] Glucose mass conc 148 mg/dL High 74 - 99 [facility] Comment on above: Performed By: #### V TDOH ####[facility] [place] [address] HCO3 molar conc (Bld) 22 mmol/L Normal 21 - 32 [facility] Comment on above: Performed By: #### V TDOH ####[facility] [place] [address] Potassium molar conc 3.9 mmol/L Normal 3.5 - 5.3 [facility] Comment on above: Performed By: #### V TDOH ####[facility] [place] [address] Protein mass conc 5.4 g/dL Low 6.4 - 8.2 [facility] Comment on above: Performed By: #### V TDOH ####[facility] [place] [address] Sodium molar conc 137 mmol/L Normal 136 - 145 [facility] Comment on above: Performed By: #### V TDOH ####[facility] [place] [address] Urea nitrogen mass conc 31 mg/dL High 6 - 23 [facility] Comment on above: Performed By: #### V TDOH ####[facility] [place] [address] Albumin mass conc 3.0 g/dL Low 3.4 - 5.0 [facility] Comment on above: Performed By: #### V TDOH ####[facility] [place] [address] ALP enzyme act/vol 41 U/L Normal 33 - 136 [facility] Comment on above: Performed By: #### V TDOH ####[facility] [place] [address] ALT enzyme act/vol 19 U/L Normal 7 - 45 [facility] Comment on above: Result Comment: Daniel ents treated with Sulfasalazine may generate falsely decreased results for ALT. Performed By: #### V TDOH ####[facility] [place] [address] Anion gap 3 molar conc 16 mmol/L Normal 10 - 20 [facility] Comment on above: Performed By: #### V TDOH ####[facility] [place] [address] AST enzyme act/vol 22 U/L Normal 9 - 39 [facility] Comment on above: Performed By: #### V TDOH ####[facility] [place] [address] Bilirubin mass conc 1.0 mg/dL Normal 0.0 - 1.2 [facility] Comment on above: Performed By: #### V TDOH ####[facility] [place] [address] Calcium mass conc 8.8 mg/dL Normal 8.6 - 10.3 [facility] Comment on above: Performed By: #### V TDOH ####[facility] [place] [address] Chloride molar conc 103 mmol/L Normal 98 - 107 [facility] Comment on above: Performed By: #### V TDOH ####[facility] [place] [address] Creatinine mass conc 1.12 mg/dL High 0.50 - 1.05 [facility] Comment on above: Performed By: #### V TDOH ####[facility] [place] [address] GFR- AM. 57 mL/min/1.73m2 Abnormal >60 [facility] Comment on above: Result Comment: CALC ULATIONS OF ESTIMATED GFR ARE PERFORMED USING THE MDRD STUDY EQUATION FOR THE IDMS-TRACEABLE CREATININE METHODS. CLIN CHEM 2007;53:766-72 Performed By: #### V TDOH ####[facility] [place] [address] GFR-NON AM. 47 mL/min/1.73m2 Abnormal >60 [facility] Comment on above: Performed By: #### V TDOH ####[facility] [place] [address] Glucose mass conc 157 mg/dL High 74 - 99 [facility] Comment on above: Performed By: #### V TDOH ####[facility] [place] [address] HCO3 molar conc (Bld) 22 mmol/L Normal 21 - 32 [facility] Comment on above: Performed By: #### V TDOH ####[facility] [place] [address] Potassium molar conc 4.1 mmol/L Normal 3.5 - 5.3 [facility] Comment on above: Performed By: #### V TDOH ####[facility] [place] [address] Protein mass conc 6.0 g/dL Low 6.4 - 8.2 [facility] Comment on above: Performed By: #### V TDOH ####[facility] [place] [address] Sodium molar conc 137 mmol/L Normal 136 - 145 [facility] Comment on above: Performed By: #### V TDOH ####[facility] [place] [address] Urea nitrogen mass conc 29 mg/dL High 6 - 23 [facility] Comment on above: Performed By: #### V TDOH ####[facility] [place] [address] Consult-Cardiologyon 018 Consult-Cardiology Service:Service: CardiologyConsult:Consult requested by [...] yesterday. She states she had a normal BMyester morning and then diarrhea in the afternoon. [...] Restoril: ConfusionObjective:Objective Information: T P R BP BoA8Ecqbm 36.5 87 21 103/55 95%Date/Time 07/03 8:07/03 [...] contusions or wounds, noclubbingNeurological: alert and oriented h0Jbmfdagfswlbh: Appropriate mood and behaviorSkin: Warm and dryMedications:Medications:C [...] Urine MARINA Reference Range: STRAW,YELLOWAppearance, Urine HAZYSpecific Sulphur, Urine 1.026pH, Urine 5.0Protein, Urine 30(1+) AGlucose, [...] Elevated glucose-Could be stress response-check hgb A1C6. Zlzflp-Pcwqqa-Kzgogdw closely post op7. Hyperlipidemia-Lipid panel WNL in February 2017-Cont statin when able to eatCritical care time 45 minutesElectronic Signatures:Ventura Thacker) (Signed 05-Jul-2017 11:39) Authored: Signature/Cosignature/Attest ation Co-Signer: Service, History of Present Illness, Past Medical/Surgical History,Review Family/Social History and ROS, Allergies, Objective,Assessment/Recomme ndations, Signature/Cosignature/Attest ationApril Nam (CHILD DAY CARE TEACHER-[facility]) (Signed 03-Jul-2017 09:53) Authored: Service, History of Present Illness, Past Medical/Surgical History,Review Family/Social History and ROS, Allergies, Objective,Assessment/Recomme ndations, Signature/Cosignature/Attest ationLast Updated: 05-Jul-2017 11:39 by Ventura Thacker) Normal [facility] Consult-Surgeryon 07-03-2017 Consult-Surgery This report has been cancelled. Normal [facility] Daily Progress Note - Critic al Care-SICUon 07-03-2017 Protein mass conc Service:Critical Car e Service:? Service SICUSubjective Data:ID Statement:82-year-old female with PMH of CAD, CHF, CABGx2, anemia, HTN, SBO s/p ex lap [id number] admitted to the ICU for cecal volvulus, SBO, s/p right colectomy POD #1.Patient presented to the [facility] 07/02/17 complaining of severe periumbilicalabdominal pain. [...] Data:? Objective Information T P R BP GzM7Ljpop 36.1 81 18 135/58 94%Date/Time 07/03 12:07/03 13:07/03 13:07/03 13:3:00Range (36.1C - 36.6C ) (65 - 93 ) (10 - 23 ) (71 - 135 )/ (45 - 69 ) (93%- 100% ) As of 03-Jul-2017 13:00:00, patient is on 3 L/min of oxygen via nasal cannula.Pain at Rest reported at 07/03 13:00: 2Cardiac HemodynamicsCardiac Output (L/min) 4.8 (3.2 - 4.9) 07/03 13:Cardiac Index (L/min/m2) 3.2 (2.1 - 3.2) 07/03 13:SV (mL/beat) 59 (37 - 60) 07/03 13:00---- Intake and Output -----Mn/Dy/Year Time Intake Output NetMay 2017 6:00 am 1500 150 1350The Intake and Output Totals for the last 24 hours are: Intake Output Net 4225 381 9162 Drain and tube details (included in I&O totals)100 cc Indwelling Catheter - Urethral( 03-Jul-2017 06:00:00 ) Weights07/03 6:00: Weight in kg (Weight (kg)) 53.85/ 6:00: Weight in lbs ((lbs)) 118.75/24 20:49: [...] as Needed PRNRecent Lab Results:Results:CBC: 07/03/2017 05:20 \\ Hgb / \\ 12.7 /WBC Plt 6.4 214 / Hct \\ / 38.6 \\RBC: 3.79 L MCV: 102 H Neutrophil %: 83.4CMP: 07/03/2017 05:20NA+ Cl- BUN / 137 105 31 H / ----- Glucose ------ 148 H K+ HCO3- Creat \\ 3.9 22 1.12 H \\ \\ T Bili / \\ 1.1 /AST x ---- x ALT null x ---- x 19 / Alk P \\ / 36 \\Calcium : 8.3 L Anion Gap : 14 Albumin : 2.7 L T Protein : 5.4 L Recent Arterial Blood Gas Results 07/03/2017 01:10pO2 109pH 7.42pCO2 36SO2 98Base Excess -0.7Bicarbonate 23.4I have reviewed these laboratory results:Lactate, Level -Jun-2017 08:23:00Result ValueLactate, Level 2.6 HResults:Impression:Findings consistent with [...] changesCardiovascular:Diagno sis:No acute issues, h/o CAD CHF, WFEEb0Nduktbklig: HR normal. NSR on ECGPlan: -cardiology following-continue [...] Bed @ 30 Degrees: yesDate Soto Inserted: [id number]:Urinary Catheter Removed Post-Op Day 2: noReason Patient [...] Data, Assessment and PlanAltagracia Trammell (GLENDA) (Signed 03-Jul-2017 13:34) Authored: Service, Subjective Data, Objective Data, Assessment and PlanLast Updated: 03-Jul-2017 21:22 by Manny Arana) Normal [facility] Discharge Planning Noteon Discharge Planning Note Discharge Needs Assessment:? Discharge Planning Assessment [id number]? Discharge Planning Assessment Completed bySom Chaudhari RN [...] 07/06/17 1056Tried to meet with patient today, FISHERIES DIRECTOR feeding patient and she stated patientconfused today, Unable to talk with patient due to confusion, Will continue tofollow. Som Chaudhari RN (Want Ad Clerk) 07/07/17 1545Met with patient about discharge plans, lives with spouse in a one story homewith 2 steps to enter, Therapy recommended SNF for rehab, [facility], referral sent to [facility],Leida at [facility] accepted patient upon discharge. [id number] completed.Som Chaudhari RN (Want Ad Clerk) 07/08/17 1540- Discussed plan of care in interdisciplinary rounds. Patient isinterested in staying here for swing bed is able. [facility] Referral sent to team to review and willfollow. Javier Muller RN Electronic Signatures:Som Chaudhari (CLIN COOR) (Signed 07-Jul-2017 15:47)Authored: Discharge Planning Wanda Cheung (CLIN COOR) (Signed 08-Jul-2017 15:41)Authored: Discharge Planning Note Last Updated: 08-Jul-2017 15:41 by Wanda Muller (CLIN COOR) References:1. Data Referenced From "Admission Risk Screen - Adult" 07/02/2017 08:21 PM Normal [facility] FLUID CULTURE/SM.,BACTERIALo n 07-03-2017 FLUID CULTURE/SM.,BACTERIAL PATIENT: KATHERINE JUDGE [id number] : [birth year] AGE: SEX: F ORDERED BY: DEBRA ARANA: FLUID COLLECTED: 07/03/17 00:58ANTIBIOTICS AT ESDRAS.: RECEIVED : 07/03/17 08:21SITE: peritineum R E S U L T S GRAM STAIN FINAL 07/03/17 09:41 NO GRANULOCYTES OR ORGANISMS SEEN. FLUID CULTURE/SM.,BACTERIAL FINAL 07/06/17 09:20 NO GROWTH AEROBICALLY OR ANAEROBICALLY. Normal [facility] Comment on above: Performed By: #### U A ####[facility] [place] [address] LACTATEon 07-03-2017 Lactate molar conc Canceled Normal [facility] Comment on above: Order Comment: TEST LACTATE WAS CANCELLED, 07/03/2017 09:41 ?Cancel Reason: Alternativetreatment needed. Result Comment: Hali puncture immediately after or during the administration of Metamizole may lead to falsely low results. Testing should be performed immediately prior to Metamizole dosing. Performed By: #### V TDOH ####[facility] [place] [address] Lactate molar conc 2.6 mmol/L High 0.4 - 2.0 [facility] Comment on above: Result Comment: Hali puncture immediately after or during the administration of Metamizole may lead to falsely low results. Testing should be performed immediately prior to Metamizole dosing. Performed By: #### V TDOH ####[facility] [place] [address] Lactate molar conc 3.0 mmol/L High 0.4 - 2.0 [facility] Comment on above: Result Comment: Hali puncture immediately after or during the administration of Metamizole may lead to falsely low results. Testing should be performed immediately prior to Metamizole dosing. Performed By: #### V TDOH ####[facility] [place] [address] Lactate molar conc 2.9 mmol/L High 0.4 - 2.0 [facility] Comment on above: Result Comment: Hali puncture immediately after or during the administration of Metamizole may lead to falsely low results. Testing should be performed immediately prior to Metamizole dosing. Performed By: #### V TDOH ####[facility] [place] [address] MAGNESIUMon 07-03-2017 Magnesium mass conc 1.73 mg/dL Normal 1.60 - 2.40 [facility] Comment on above: Performed By: #### V TDOH ####[facility] [place] [address] Nutrition Therapy-Assessment on 07-03-2017 Nutrition Therapy-Assessment Assessment Subjective/Objective:Note Type: AssessmentNote Authored by: Registered Dietitian NutritionistPager Number: [phone] Note:The patient is a 82 year old [...] bowel obstruction:Objective Information: T P R BP XhM8Bppll 36.1 83 13 92/53 93%Date/Time 07/03 12:00 07/03 15:07/03 15:07/03 15:5:00Range (36.1C - 36.5C ) (65 - 93 ) (10 - 23 ) (71 - 135 )/ (45 - 69 ) (92%- 100% ) As of 03-Jul-2017 15:00:00, patient is on 3 L/min of oxygen via nasal cannula.Pain at Rest reported at 07/03 13:00: 2 Weights07/03 6:00: Weight in kg (Weight (kg)) 53.85 6:00: Weight in lbs ((lbs)) 118.75/ 20:49: BMI (kg/m2) (BMI (kg/m2)) 21.312---- Intake and Output -----Mn/Dy/Year Time Intake Output NetMa2017 2:00 pm 2001 350 1651Ma2017 6:00 am 1500 150 1350The Intake and [...] Trending ViewResult 03-Jul-2017 08:23:00 03-Jul-2017 05:20:00 03-Jul-2017 02:05:8238-Kss-3313 17:00:00Lactate, Level 2.6 H 3.0 H 2.9 [...] 33Aspartate Transaminase, Serum 21 22 34Magnesium, Serum 25-May-2018 02:05:00Result ValueMagnesium, Serum 1.73Phosphorus, Serum 03-Jul-2017 02:05:00Result [...] Urine MARINA Reference Range: STRAW,YELLOWAppearance, Urine HAZYSpecific Sulphur, Urine 1.026pH, Urine 5.0Protein, Urine 30(1+) AGlucose, [...] = 40 mg SubCutaneous Every 24 Hours, 25-May-2018 Metoprolol Injectable, (LOPRESSOR) DOSE = 2.5 mg [...] mL Run at: 60 mL/hr IntraVenous , 23-Uqq-8223Cbccluvdk Orders: NPO, Routine Except Sips of Water Special Instuctions: may have ice chips and popsicles also, 31-[id number]/Nutrition Related History:Change in Oral Intake/Appetite: decrease -Pt [...] less than 5 days NPO/clear liquids, Blood Tsbykxz09-650 mg/dl, lab values within normal limits, promote [...] -Not appropriate at this time.Electronic Signatures:Silvia Tyler ([place], LD) (Signed 03-Jul-2017 17:04) Authored: Assessment Subjective/Objective, Nutrition Focused PhysicalFindings, Estimated Needs, Nutrition Diagnosis, Nutrition Interventions,Nutrition Goals, Nutrition Recommendations, Dietitian Monitoring and EvaluationPlan, Diet EducationLast Updated: 03-Jul-2017 17:04 by Silvia Tyler (ELENITAN, LD) Normal [facility] OPERATIVE REPORTon 8 OPERATIVE REPORT [facility] [place], [place] [address]Kxoexie Name: KATHERINE JUDGE. NMRN: [id number]: 1935Encounter Number: [id number] of Service: 07/03/2017Patient Location: [place] [address]Patient Type: ISurgeon: Manny Arana M.D.Report Type: Operative ReportsPREOPERATIVE DIAGNOSIS:Venofibrosis, cecal volvulus, small-bowel obstruction.POSTOPERATIVE DIAGNOSIS:Venofibrosis, cecal volvulus, small-bowel obstruction.OPERATION/PROCED URE:1. Ultrasound-guided placement of left internal jugular vein triple-lumen catheter.2. Exploratory laparotomy.3. Lysis of adhesions.4. Right colectomy.5. Ileocolonic staple anastomosis.6. Bilateral transversus abdominis plane block.SURGEON:Manny DotsonISTANT(S):Mary HansenANESTHESIA:General.INC ISION:Midline.ESTIMATED BLOOD LOSS:50 cc.FLUIDS:1500 mL.DRAINS:None.SPECIMENS:Non viable [...] discussion with thepatient and discussion with the validation analyst, it was felt that she would be [...] present, and the small bowel itselfwas viable.A xmdq-gz-elhr ileocolonic stapled functional end-to-end handsewn 2-layeredanastomosis was [...] hematoma, but itappeared to be viable. A fxrz-ue-syyp stapled anastomosis was performed afterensuring that I [...] this. I then reanastomosed the bowelperforming a rtqb-wi-kjhk stapled anastomosis after opening this at thecorners. I had complete control of the bowel clamps, I performed bhrlh-ig-fwxh stapled anastomosis. I then performed another gqppyizvxelun-eo-qzi handsewn 2-layered anastomosis, which on completion had [...] M.D. ESTTT: 07/03/2017 06:25 AM ESTDICTATION NUMBER: [id number] JOB NUMBER: [id number]:Benjy Garnett M.D., [id number] signed by Dr Manny Arana 07/04/2017 09:43:47 AM Normal [facility] PHOSPHORUSon 07-03-2017 Phosphate mass conc 3.7 mg/dL Normal 2.5 - 4.9 [facility] Comment on above: Result Comment: The performance characteristics of phosphorus testing in heparinized plasma have been validated by the individual laboratory site where testing is performed. Testing on heparinized plasma is not approved by the FDA; however, such approval is not necessary. Performed By: #### V TDOH ####[facility] [place] [address] Admission Risk Screen - Adul ton 07-02-2017 [...] Directive type Living Will, Durable Power of Battery Container Tester forHealthcare? Living Will Availability Living Will not available now? Living Will Requested 02-Jul-2017? Durable Power of Battery Container Tester Availability DPOA not available now? Durable Power of Battery Container Tester Requested 02-Jul-2017? Durable Power of Battery Container Tester contact (name and number) Ganga Judge (son)[phone]? Advance Directive Mental Health not applicableFalls Screen:Type [...] instruction? Cultural Considerations none? Developmental Considerations none? Islam Considerations noneLearning Assessment (Other Learner):? Other learner [...] lowerSpiritual Screen:? Are there any cultural, spiritual, buddhism practices/values/needs that areimportant for us to know? noCAGE:Is this an injured patient at a Trauma Center ([facility] / [place]): noVaccinations:Vaccination - Influenza Vaccination Screen:? Is it [...] 02-Jul-2017 20:35 by Emily Henderson (SUPV) Normal [facility] CBC AND DIFFERENTIALon 07-02 % AUTOMATED IMMATURE GRAN 0.4 % Normal 0.0 - 0.9 [facility] Comment on above: Result Comment: Perc ent differential counts (%) should be interpreted in the context of the absolute cell counts (cells/L). Performed By: #### C BCDF ####[address] [address] % NEUTROPHIL 83.4 % Normal 40.0 - 80.0 [facility] Comment on above: Performed By: #### C BCDF ####[address] [address] Basophils/100 WBC Auto (Bld) 0.03 x10E9/L Normal 0.00 - 0.10 [facility] Comment on above: Performed By: #### C BCDF ####[address] [address] Basophils/100 WBC Auto (Bld) 0.2 % Normal 0.0 - 2.0 [facility] Comment on above: Performed By: #### C BCDF ####[address] [address] Eosinophils Auto #/vol (Bld) 0.01 10*3/uL Normal 0.00 - 0.40 [facility] Comment on above: Performed By: #### C BCDF ####[address] [address] Eosinophils/100 WBC Auto (Bld) 0.1 % Normal 0.0 - 6.0 [facility] Comment on above: Performed By: #### C BCDF ####[address] [address] Erythrocyte distribution width Auto Ratio (RBC) 13.6 % Normal 11.5 - 14.5 [facility] Comment on above: Performed By: #### C BCDF ####[address] [address] Hematocrit Auto Volume Fraction (Bld) 44.8 % Normal 36.0 - 46.0 [facility] Comment on above: Performed By: #### C BCDF ####[address] [address] Hemoglobin mass conc (Bld) 15.0 g/dL Normal 12.0 - 16.0 [facility] Comment on above: Performed By: #### C BCDF ####[address] [address] Lymphocytes Auto #/vol (Bld) 1.63 10*3/uL Normal 0.80 - 3.00 [facility] Comment on above: Performed By: #### C BCDF ####[address] [address] Lymphocytes/100 WBC Auto (Bld) 12.8 % Low 13.0 - 44.0 [facility] Comment on above: Performed By: #### C BCDF ####[address] [address] MCHC Auto mass conc (RBC) 33.5 g/dL Normal 32.0 - 36.0 [facility] Comment on above: Performed By: #### C BCDF ####[address] [address] MCV Auto Entitic volume (RBC) 100 fL Normal 80 - 100 [facility] Comment on above: Performed By: #### C BCDF ####[address] [address] Monocytes Auto #/vol (Bld) 0.40 10*3/uL Normal 0.05 - 0.80 [facility] Comment on above: Performed By: #### C BCDF ####[address] [address] Monocytes/100 WBC Auto (Bld) 3.1 % Normal 2.0 - 10.0 [facility] Comment on above: Performed By: #### C BCDF ####[address] [address] Neutrophils Auto #/vol (Bld) 10.64 10*3/uL High 1.60 - 5.50 [facility] Comment on above: Performed By: #### C BCDF ####[address] [address] Platelets Auto #/vol (Bld) 260 10*3/uL Normal 150 - 450 [facility] Comment on above: Performed By: #### C BCDF ####[address] [address] RBC Auto #/vol (Bld) 4.49 x10E12/L Normal 4.00 - 5.20 [facility] Comment on above: Performed By: #### C BCDF ####[address] [address] WBC Auto #/vol (Bld) 12.8 10*3/uL High 4.4 - 11.3 [facility] Comment on above: Performed By: #### C BCDF ####[address] [address] COMPREHENSIVE PANELon 2017 Albumin mass conc 4.7 g/dL Normal 3.4 - 5.0 [facility] Comment on above: Performed By: #### C MP ####[address] [address] ALP enzyme act/vol 62 U/L Normal 33 - 136 [facility] Comment on above: Performed By: #### C MP ####[address] [address] ALT enzyme act/vol 33 U/L Normal 7 - 45 [facility] Comment on above: Result Comment: Daniel ents treated with Sulfasalazine may generate falsely decreased results for ALT. Performed By: #### C MP ####[address] [address] Anion gap 3 molar conc 13 mmol/L Normal 10 - 20 [facility] Comment on above: Performed By: #### C MP ####[address] [address] AST enzyme act/vol 34 U/L Normal 9 - 39 [facility] Comment on above: Performed By: #### C MP ####[place] [address] [place] [address] Bilirubin mass conc 1.0 mg/dL Normal 0.0 - 1.2 [facility] Comment on above: Performed By: #### C MP ####[place] [address] [place] [address] Calcium mass conc 10.9 mg/dL High 8.6 - 10.3 [facility] Comment on above: Performed By: #### C MP ####[place] [address] [place] [address] Chloride molar conc 98 mmol/L Normal 98 - 107 [facility] Comment on above: Performed By: #### C MP ####[address] [address] Creatinine mass conc 1.25 mg/dL High 0.50 - 1.05 [facility] Comment on above: Performed By: #### C MP ####[place] [address] [place] [address] GFR- AM. 50 mL/min/1.73m2 Abnormal >60 [facility] Comment on above: Result Comment: CALC ULATIONS OF ESTIMATED GFR ARE PERFORMED USING THE MDRD STUDY EQUATION FOR THE IDMS-TRACEABLE CREATININE METHODS. CLIN CHEM 2007;53:766-72 Performed By: #### C MP ####[place] [address] [place] [address] GFR-NON AM. 41 mL/min/1.73m2 Abnormal >60 [facility] Comment on above: Performed By: #### C MP ####[place] [address] [place] [address] Glucose mass conc 127 mg/dL High 74 - 99 [facility] Comment on above: Performed By: #### C MP ####[place] [address] [place] [address] HCO3 molar conc (Bld) 32 mmol/L Normal 21 - 32 [facility] Comment on above: Performed By: #### C MP ####[address] [address] Potassium molar conc 3.8 mmol/L Normal 3.5 - 5.3 [facility] Comment on above: Performed By: #### C MP ####[facility] [place] [address] Protein mass conc 9.3 g/dL High 6.4 - 8.2 [facility] Comment on above: Performed By: #### C MP ####[facility] [place] [address] Sodium molar conc 139 mmol/L Normal 136 - 145 [facility] Comment on above: Performed By: #### C MP ####[facility] [place] [address] Urea nitrogen mass conc 29 mg/dL High 6 - 23 [facility] Comment on above: Performed By: #### C MP ####[facility] [place] [address] CT ABDOMEN AND PELVIS WO CON TRASTon [...] y signed by: BLU ACEVEDO MD Normal [facility] History and Physicalon 07-02 History and Physical [...] Rash, UlcerObjective:Objective Information: T P R BP VhB0Dyrlc 36.6 90 16 111/58 100%Date/Time 07/02 15:10 [...] within 96 hours after admission to the [facility].Electronic Signatures:Manny Arana) (Signed 02-Jul-2017 20:34) Authored: History of Present Illness, Comorbidities, Past Medical/SurgicalHistory, Social History, Allergies, Review of Systems, Objective, Assessmentand Plan, Signatures/Attestation/Certi ficationLast Updated: 02-Jul-2017 20:34 by Manny Arana) Normal [facility] LACTATEon 07-02-2017 Lactate molar conc 1.5 mmol/L Normal 0.4 - 2.0 [facility] Comment on above: Result Comment: Hali puncture immediately after or during the administration of Metamizole may lead to falsely low results. Testing should be performed immediately prior to Metamizole dosing. Performed By: #### L ACT ####[address] [place] [address] LIPASEon 07-02-2017 Lipase enzyme act/vol 455 U/L High 9 - 82 [facility] Comment on above: Result Comment: Hali puncture immediately after or during the administration of Metamizole may lead to falsely low results. Testing should be performed immediately prior to Metamizole dosing. Performed By: #### L IPAS ####[facility] [place] [address] Patient Profile - Adult v2on 07-02-2017 Protein mass conc Profile:Initial Info :How to be Addressed NaomiSpoken Language Preferred Kazakh (1)Source of Information patientAre you currently using the Personal Electronic Health Record or [employer] noAre you interested in learning more about [facility] for the management of yourhealth yes, information providedEmail address [email or web address] d Reason for Admission Intestines are twisted [...] Active? Restoril: Drug, Confusion, ActiveElectronic Signatures:Remy Paniagua (RN) (Signed 03-Jul-2017 02:13) Authored: Emily Ken (SUPV) (Signed 02-Jul-2017 20:57) Authored: Profile, Additional InformationLast Updated: 03-Jul-2017 02:13 by Remy aPniagua (CINTHYA)References:1. Data Referenced From "Patient Profile - Adult v2" 12/26/2016 06:36 PM Normal [facility] Preop Checkliston 07-02-2017 Preop Checklist Preop Checklist:Preo p Checklist:? Arrival Date 02-Jul-2017? Arrival Time 14:57? NPO Status 02-Jul-2017 14:57? ID Band On yes? Allergy Band yes? Consent Signed yes? H&P Complete pending? Anesthesia Assessment Completed pending? EKG Performed yes? Chest X-Ray Performed not ordered? SCD's Applied no? MAURA Hose Applied no? Bowel Prep noRespiratory Assessment:? Respirations regular? Air Exchange good? Breath Sounds clearNeurological Assessment:? Level of Consciousness alert, oriented? Mobility moves all extremities? Able to Express Self yes? Age Appropriate yes? Emotional Status calmLanguage / Communication:? Language / Communication EnglishElectronic Signatures:Shawnee Rodríguez) (Signed 02-Jul-2017 21:30) Authored: Preop ChecklistLast Updated: 02-Jul-2017 21:30 by Shawnee Rodríguez (RN) Normal [facility] Provider Note - EDon 018 Protein mass [...] Past Medical History, Active? Non ST elevation CA: Past Medical History, Active, 13-Dec-2009? CAD: Past [...] Medical History, Active? Family spokesperson: Other, CARLOS [phone] BROTHERPAUL ROSELIA [phone], Active? Narcotic Use: Other, Active? Clostridium difficile toxin (C-Diff): Infection Control, came with ([facility]), Active, 27-Aug-2012? Methicillin-Resistant Staph Aureus (MRSA): Infection Control, sputum,Active, Mar 2012? .Pneumonia- Pneumococcal polysaccharide vaccine-adult: Immunizations,Active? .Influenza- Influenza Virus: Immunizations, Active, 85-Viy-1114Uwmxrpa, Intolerance, Adverse Event: Allergies:? Lincocin: Drug, Rash, [...] 60 mg oral tablet: Last Modified Date/Time: 09-Dzq-383745:42? Os-Ramiro Calcium+D3 oral tablet: Last Modified Date/Time: [...] by Maria A Vance)References:1. Data Referenced From "Triage - ED" 07/02/2017 3:10 PM Normal [facility] TYPE + SCREENon 07-02-2017 ABO TYPE O Normal [facility] Comment on above: Performed By: #### L IPID ####[facility] [place] [address] RH TYPE Positive Normal [facility] Comment on above: Performed By: #### L IPID ####[facility] [place] [address] Triage - EDon 07-02-2017 Triage - ED Chart Review:CHIEF COMPLAINTALIDOUG JUDGE is a Female patient with a chief complaint of abdominal pain.Onset of the Complaint: 25-Edg-3158Kyrhjs Date/Time: 02-Jul-2017 14:57Vital Signs:Temperature: 98.0F ( 36.6C) taken temporalBlood Pressure: 130/65 Mean:Heart Rate: 80Respiratory Rate: 16Pulse Oximetry: 94% on room air, no respiratory support. Height: 5 feet 10.00inches. 177.8 CMWeight: 103.0 pounds. Calculated 46.7 kg. (stated)Calculated BMI (kg/m2): 14.772 Calculated BSA (m2) 1.52Allergies: yesESI: 3PAINPain Scale Used: WILDAPast Medical History:? Past Medical History Reviewed yesElectronic Signatures:Obdulia Perea (CINTHYA PRN) (Signed 02-Jul-2017 15:11) Authored: Triage, Past Medical HistoryLast Updated: 02-Jul-2017 15:11 by Obdulia Perea (CINTHYA PRN) Normal [facility] UA MICROSCOPICon 07-02-2017 BACTERIA 1+ /HPF Abnormal [facility] Comment on above: Performed By: #### U AMIC ####[facility] [place] [address] HYALINE CAST 4+ /LPF Abnormal [facility] Comment on above: Performed By: #### U AMIC ####[facility] [place] [address] MUCUS 1+ /LPF Normal [facility] Comment on above: Performed By: #### U AMIC ####[place] [address] [place] [address] RBC 1 /HPF Abnormal 0-5 [facility] Comment on above: Performed By: #### U AMIC ####[place] [place] [address] SQUAMOUS EPITH. CELLS 2 /HPF [facility] Center Comment on above: Performed By: #### U AMIC ####[address] [address] WBC 3 /HPF Abnormal 0-5 [facility] Comment on above: Performed By: #### U AMIC ####[address] [address] URINALYSISon 07-02-2017 APPEARANCE HAZY Normal CLEAR [facility] Comment on above: Performed By: #### U A ####[address] [address] BILIRUBIN Negative Normal NEGATIVE [facility] Comment on above: Performed By: #### U A ####[address] [address] BLOOD Negative Normal NEGATIVE [facility] Comment on above: Performed By: #### U A ####[address] [address] COLOR MARINA Normal STRAW,YELL OW [facility] Comment on above: Performed By: #### U A ####[address] [address] GLUCOSE Negative Normal NEGATIVE [facility] Comment on above: Performed By: #### U A ####[address] [place] [address] KETONES Negative Normal NEGATIVE [facility] Comment on above: Performed By: #### U A ####[address] [address] LEUKOCYTE ESTERASE TRACE Abnormal NEGATIVE [facility] Comment on above: Performed By: #### U A ####[address] [address] NITRITE Negative Normal NEGATIVE [facility] Comment on above: Performed By: #### U A ####[facility] [place] [address] pH 5.0 Normal 5.0 - 8.0 [facility] Comment on above: Performed By: #### U A ####[address] [place] [address] Protein mass conc 30(1+) Abnormal NEGATIVE [facility] Comment on above: Performed By: #### U A ####[address] [place] [address] SPECIFIC GRAVITY 1.026 Normal 1.005 - 1.035 [facility] Comment on above: Performed By: #### U A ####[address] [address] UROBILINOGEN <2.0 Normal 0.0 - 1.9 [facility] Comment on above: Performed By: #### U A ####[address] [address] LIPID PANEL (CORONARY RISK 2 )on 03-02-2017 Cholesterol in HDL mass conc 41.0 mg/dL Normal [facility] Comment on above: Result Comment: . AG E VERY LOW LOW NORMAL HIGH 0-19 Y < 35 < 40 40-45 ---- 20-24 Y ---- < 40 >45 ---- >24 Y ---- < 40 40-60 >60. Performed By: #### L IPID ####[address] [address] Cholesterol in LDL mass conc 69 mg/dL Normal 0 - 99 [facility] Comment on above: Result Comment: . CAROLINE FIELD BORJavier AGE DESIRABLE OPTIMAL HIGH HIGH VERY HIGH 0-19 Y 0 - 109 --- 110-129 >/= 130 ---- 20-24 Y 0 - 119 --- 120-159 >/= 160 ---- >24 Y 0 - 99 100-129 130-159 160-189 >/=190. Performed By: #### L IPID ####[address] [place] [address] Cholesterol in VLDL mass conc 24 mg/dL Normal 0 - 40 [facility] Comment on above: Performed By: #### L IPID ####[facility] [place] [address] Cholesterol mass conc 134 mg/dL Normal 0 - 199 [facility] Comment on above: Result Comment: . AG [...] Metamizole dosing. Performed By: #### L IPID ####[address] [place] [address] Cholesterol.total/Cho lesterol in HDL mass ratio 3.3 {ratio} Normal [facility] Comment on above: Result Comment: REF VALUESDESIRABLE < 3.4HIGH RISK > 5.0 Performed By: #### L IPID ####[address] [place] [address] Triglyceride mass conc 122 mg/dL Normal 0 - 149 [facility] Comment on above: Result Comment: . AG [...] Metamizole dosing. Performed By: #### L IPID ####[facility] [place] [address] VITAMIN D, 25-HYDROXYon 02-10 VITAMIN D, 25-HYDROXY 34 ng/mL Normal [facility] Comment on above: Result Comment: .DEF ICIENCY: < 20 NG/MLINSUFFICIENCY: 20-29 NG/MLOPTIMUM LEVEL: 30-80 NG/MLPOSSIBLE TOXICITY: > 80 NG/MLTHIS ASSAY ACCURATELY QUANTIFIES THE SUM OFVITAMIN D3, 25-HYDROXY AND VIT D2,25-HYDROXY. Performed By: #### V TDOH ####[facility] [place] [address] URINE CULTURE,BACTERIALon URINE CULTURE,BACTERIAL PATIENT: KATHERINE JUDGE LOCATION: [facility] BILL#: [id number] : [birth year] AGE: SEX: F ORDERED BY: GOYO GARNETT: URINE COLLECTED: 01/21/17 22:12ANTIBIOTICS AT [facility].: RECEIVED : 01/21/17 22:12SITE: R E S U L T S URINE CULTURE,BACTERIAL FINAL 01/22/17 14:32 NO SIGNIFICANT GROWTH. Normal [facility] Comment on above: Performed By: #### U RINC ####[facility] [place] [address] Vital Signs Date Time Vital Sign Value Performing Clinician Facility 07-28-2024 15:31-0400 Body temperature 98.4 [degF] Dr. Jacobo Moya DO Work Phone: [facility] 07-28-2024 15:31-0400 Diastolic blood pressure 47 mm[Hg] Dr. Jacobo Moya DO Work Phone: [facility] 07-28-2024 15:31-0400 Heart rate 98 /min Dr. Jacobo Moya DO Work Phone: [facility] 07-28-2024 15:31-0400 Inhaled oxygen flow rate 2 L/min Dr. Jacobo Moya DO Work Phone: [facility] 07-28-2024 15:31-0400 Respiratory rate 18 /min Dr. Jacobo Moya DO Work Phone: [facility] 07-28-2024 15:31-0400 SaO2% (BldA) [Mass fraction] 98 % Dr. Jacobo Moya DO Work Phone: 6(537)503-112488 [place] [address] 07-28-2024 15:31-0400 Systolic blood pressure 124 mm[Hg] Dr. Jacobo Moya DO Work Phone: 8(840)791-633688 [place] [address] 07-26-2024 13:46-0400 Body height 152.[address] Jacobo Moya DO Work Phone: 3(293)902-271188 [place] [address] 07-26-2024 13:46-0400 Body mass index (BMI) [Ratio] 20.9 kg/m2 Dr. Jacobo Moya DO Work Phone: 9(359)936-036088 [place] [address] 07-26-2024 13:46-0400 Body weight 48.[address] Jacobo Moya DO Work Phone: 5(971)081-645188 [place] [address] 07-25-2024 18:05-0400 Body height 152.[address] Jacobo Moya DO Work Phone: 7(222)955-098088 [place] [address] 07-25-2024 18:05-0400 Body mass index (BMI) [Ratio] 21.1 kg/m2 Dr. Jacobo Moya DO Work Phone: 2(215)838-117788 [place] [address] 07-25-2024 18:05-0400 Body weight 48.[address] Jacobo Moya DO Work Phone: 2(700)238-768188 [place] [address] 07-25-2024 18:03-0400 Body temperature 97.8 [degF] Dr. Jacobo Moya DO Work Phone: 1(491)838-016388 [place] [address] 07-25-2024 18:03-0400 Diastolic blood pressure 64 mm[Hg] Dr. Jacobo Moya DO Work Phone: 0(837)172-293188 [place] [address] 07-25-2024 18:03-0400 Heart rate 63 /min Dr. Jacobo Moya DO Work Phone: 9(015)386-062488 [place] [address] 07-25-2024 18:03-0400 Respiratory rate 16 /min Dr. Jacobo Moya DO Work Phone: 6(511)676-709488 [place] [address] 07-25-2024 18:03-0400 SaO2% (BldA) [Mass fraction] 99 % Dr. Jacobo Moya DO Work Phone: [facility] 07-25-2024 18:03-0400 Systolic blood pressure 132 mm[Hg] Dr. Jacobo Moya DO Work Phone: [facility] 07-25-2024 16:27-0400 Inhaled oxygen flow rate 2 L/min Dr. Jacobo Moya DO Work Phone: [facility] 11-06-2022 21:33-0400 Heart rate 79 /min Dr. Amalia Donahue Work Phone: [facility] 11-06-2022 21:33-0400 Inhaled oxygen flow rate 3 L/min Dr. Amalia Donahue Work Phone: [facility] 11-06-2022 21:33-0400 SaO2% (BldA) [Mass fraction] 97 % Dr. Amalia Donahue Work Phone: [facility] 11-06-2022 20:00-0400 Diastolic blood pressure 85 mm[Hg] Dr. Amalia Donahue Work Phone: [facility] 11-06-2022 20:00-0400 Respiratory rate 27 /min Dr. Amalia Donahue Work Phone: [facility] 11-06-2022 20:00-0400 Systolic blood pressure 172 mm[Hg] Dr. Amalia Donahue Work Phone: [facility] 11-06-2022 19:00-0400 Body temperature 98.3 [degF] Dr. Amalia Donahue Work Phone: [facility] 11-06-2022 16:27-0400 Body height 152.[address] Amalia Donahue Work Phone: [facility] 11-06-2022 16:27-0400 Body mass index (BMI) [Ratio] 21.4 kg/m2 Dr. Amalia Donahue Work Phone: 0(442)239-574341 [place] [address] 11-06-2022 16:27-0400 Body weight 49.[address] Amalia Donahue Work Phone: 6(108)936-997141 [place] [address] 11-02-2022 12:18-0400 Body mass index (BMI) [Ratio] 21.1 kg/m2 Dr. Amalia Donahue Work Phone: 1(197)542-055815 [address] 11-02-2022 12:00-0400 Body temperature 98 [degF] Dr. Amalia Donahue Work Phone: 4(670)444-014841 [place] [address] 11-02-2022 12:00-0400 Diastolic blood pressure 72 mm[Hg] Dr. Amalia Donahue Work Phone: 5(471)170-780215 [address] 11-02-2022 12:00-0400 Heart rate 74 /min Dr. Amalia Donahue Work Phone: 4(109)840-471910 [place] [address] 11-02-2022 12:00-0400 Inhaled oxygen flow rate 1 L/min Dr. Amalia Donahue Work Phone: 0(232)738-603041 [place] [address] 11-02-2022 12:00-0400 Respiratory rate 18 /min Dr. Amalia Donahue Work Phone: 3(054)546-945615 [address] 11-02-2022 12:00-0400 SaO2% (BldA) [Mass fraction] 95 % Dr. Amalia Donahue Work Phone: 6(027)417-393741 [place] [address] 11-02-2022 12:00-0400 Systolic blood pressure 133 mm[Hg] Dr. Amalia Donahue Work Phone: [facility] 11-02-2022 06:00-0400 Body weight 48.[address] Amalia Donahue Work Phone: 6(104)077-170641 [place] [address] 10-31-2022 09:20-0400 Body height 152.[address] Amalia Donahue Work Phone: [facility] 10-30-2022 22:21-0400 Body height 154.94 cm [facility] 10-30-2022 22:21-0400 Body mass index (BMI) [Ratio] 18.8 kg/m2 [facility] 10-30-2022 22:21-0400 Body temperature 98.3 [degF] [facility] 10-30-2022 22:21-0400 Body weight 45.35 kg [facility] 10-30-2022 22:06-0400 Diastolic blood pressure 67 mm[Hg] [facility] 10-30-2022 22:06-0400 Heart rate 75 /min [facility] 10-30-2022 22:06-0400 Respiratory rate 20 /min [facility] 10-30-2022 22:06-0400 SaO2% (BldA) [Mass fraction] 97 % [facility] 10-30-2022 22:06-0400 Systolic blood pressure 168 mm[Hg] [facility] 10-30-2022 21:29-0400 Inhaled oxygen flow rate 4 L/min [facility] 10-27-2022 10:08-0400 Body height 153.67 cm Christ [employer] Work Phone: XP-Shzxuahcib-[address] [place] Work Phone: 10-27-2022 10:08-0400 Body mass index (BMI) [Ratio] 19.78 kg/m2 Christ [employer]ray [employer] Work Phone: GQ-Fglogrhrie-Hxau [address] [place] Work Phone: 10-27-2022 10:08-0400 Body surface area Derived from formula 1.42 m2 Christ Bray [employer] Work Phone: AA-Wvltgmcxap-Eslm [address] [place] Work Phone: 10-27-2022 10:08-0400 Body weight 46.72 kg Christ Bray [employer] Work Phone: PF-Ifebocxrgg-Yqkz [address] [place] Work Phone: 10-27-2022 10:08-0400 Diastolic blood pressure 48 mm[Hg] Christ Bray [employer] Work Phone: UA-Qeudlbgzsz-Fckp [address] [place] Work Phone: 10-27-2022 10:08-0400 Heart rate 90 /min Christ Solorzano Nostran Work Phone: VE-Hsxcbrccpb-Cnfr [address] [place] Work Phone: 10-27-2022 10:08-0400 SaO2% (BldA) [Mass fraction] 93 % Christ Solorzano Nostran Work Phone: FC-Pxxetnnjin-Pihf [address] [place] Work Phone: 10-27-2022 10:08-0400 Systolic blood pressure 99 mm[Hg] Christ Solorzano Nostran Work Phone: XU-Tzbkwcaars-Ycpb [address] [place] Work Phone: 10-16-2022 07:51-0400 Body temperature 98.29 [degF] Evelin Milwaukee DO Work Phone: [facility] [employer] 10-16-2022 07:51-0400 Diastolic blood pressure 77 mm[Hg] [facility]in [place] [facility] 10-16-2022 07:51-0400 Heart rate 81 /min Evelin Milwaukee DO Work Phone: [facility] [employer] 10-16-2022 07:51-0400 Respiratory rate 18 /min Evelin Milwaukee DO Work Phone: [facility] [employer] 10-16-2022 07:51-0400 SaO2% (BldA) [Mass fraction] 92 % Evelin Milwaukee DO Work Phone: [facility] [employer] 10-16-2022 07:51-0400 Systolic blood pressure 128 mm[Hg] Evelin Milwaukee DO Work Phone: [facility] [employer] 10-16-2022 05:00-0400 Body mass index (BMI) [Ratio] 20.14 kg/m2 Evelin Milwaukee DO Work Phone: [facility] [employer] 10-16-2022 05:00-0400 Body weight 46.78 kg Evelin Milwaukee DO Work Phone: [facility] [employer] 10-15-2022 14:41-0400 Body height 152.4 cm Evelin Salcedo DO Work Phone: [facility] [employer] 10-07-2022 13:41-0400 Body mass index (BMI) [Ratio] 20.09 kg/m2 Christ Gardiner DO Work Phone: [facility] 10-07-2022 13:41-0400 Body temperature 97.2 [degF] Christ Gardiner DO Work Phone: [facility] 10-07-2022 13:41-0400 Body weight 47.45 kg Christ Gardiner DO Work Phone: [facility] 10-07-2022 13:41-0400 Diastolic blood pressure 70 mm[Hg] Christ Gardiner DO Work Phone: [facility] 10-07-2022 13:41-0400 Heart rate 67 /min Christ Gardiner DO Work Phone: [facility] 10-07-2022 13:41-0400 Respiratory rate 12 /min Christ Gardiner DO Work Phone: [facility] 10-07-2022 13:41-0400 SaO2% (BldA) [Mass fraction] 90 % Christ Gardiner DO Work Phone: [facility] 10-07-2022 13:41-0400 Systolic blood pressure 122 mm[Hg] Christ Rashad Triny DO Work Phone: [facility] 09-11-2022 13:01-0400 Body height 153.67 cm Christ Gardiner Work Phone: NK-Fbuilliytw-Wkao [address] [place] Work Phone: 09-11-2022 13:01-0400 Body mass index (BMI) [Ratio] 19.59 kg/m2 Christ Solorzano Maraltran Work Phone: RX-Invkwbszct-Thzx [address] [place] Work Phone: 09-11-2022 13:01-0400 Body surface area Derived from formula 1.41 m2 Christ Solorzano Maraltran Work Phone: EM-Mahotviocj-Zvtk [address] [place] Work Phone: 09-11-2022 13:01-0400 Body weight 46.27 kg Christ Asa Solorzano Nostran Work Phone: MW-Kykjlrqhsp-Wduv [address] [place] Work Phone: 09-11-2022 13:01-0400 Diastolic blood pressure 67 mm[Hg] Christ Solorzano Nostran Work Phone: EG-Zyuqpabjvz-Qaqz [address] [place] Work Phone: 09-11-2022 13:01-0400 Heart rate 57 /min Christ Solorzano Nostran Work Phone: GU-Uupmrfibhx-Kafq [address] [place] Work Phone: 09-11-2022 13:01-0400 SaO2% (BldA) [Mass fraction] 92 % Christ Solorzano Nostran Work Phone: AE-Ykyschqwtm-Wivj [address] [place] Work Phone: 09-11-2022 13:01-0400 Systolic blood pressure 135 mm[Hg] Christ Solorzano Nostran Work Phone: LY-Oaffnpjblm-Zlsb [address] [place] Work Phone: 06-19-2022 10:40-0400 Body mass index (BMI) [Ratio] 24.08 kg/m2 Christ Gardiner DO Work Phone: [facility] 06-19-2022 10:40-0400 Body temperature 98.01 [degF] Christ Gardiner DO Work Phone: [facility] 06-19-2022 10:40-0400 Body weight 47.85 kg Christ Gardiner DO Work Phone: [facility] 06-19-2022 10:40-0400 Diastolic blood pressure 66 mm[Hg] Christ Van Nostran DO Work Phone: [facility] 06-19-2022 10:40-0400 Heart rate 61 /min Christ Solorzano Nostran DO Work Phone: [facility] 06-19-2022 10:40-0400 Respiratory rate 16 /min Christ Solorzano Nostran DO Work Phone: [facility] 06-19-2022 10:40-0400 SaO2% (BldA) [Mass fraction] 91 % Christ Solorzano Nostran DO Work Phone: [facility] 06-19-2022 10:40-0400 Systolic blood pressure 113 mm[Hg] Christ Solorzano Nostran DO Work Phone: [facility] 06-12-2022 08:55-0400 Body height 153.67 cm Christ Solorzano Nostran Work Phone: ZT-Iekstxwvzm-Xln[address] [place] Work Phone: 06-12-2022 08:55-0400 Body mass index (BMI) [Ratio] 20.55 kg/m2 Christ Solorzano Nostran Work Phone: IJ-Izkqhgmbhi-Vjvm [address] [place] Work Phone: 06-12-2022 08:55-0400 Body surface area Derived from formula 1.44 m2 Christ Solorzano Nostran Work Phone: HN-Nohqnpmjgs-Iecj [address] [place] Work Phone: 06-12-2022 08:55-0400 Body weight 48.54 kg Christ Solorzano Nostran Work Phone: ML-Vvlxvsrtoq-Sfzf [address] [place] Work Phone: 06-12-2022 08:55-0400 Diastolic blood pressure 65 mm[Hg] Christ Solorzano Nostran Work Phone: XJ-Vtvmaxgqeu-Ttaw [address] [place] Work Phone: 06-12-2022 08:55-0400 Heart rate 68 /min Christ E Van Nostran Work Phone: XZ-Mvgzgubsuv-Yybu [address] [place] Work Phone: 06-12-2022 08:55-0400 SaO2% (BldA) [Mass fraction] 95 % Christ Barontran Work Phone: VA-Yzcztzpxro-Rzwg [address] [place] Work Phone: 06-12-2022 08:55-0400 Systolic blood pressure 145 mm[Hg] Christ Barontran Work Phone: WJ-Kmfvlgudba-Ugva [address] [place] Work Phone: 06-10-2022 13:57-0400 Body mass index (BMI) [Ratio] 24.06 kg/m2 Christ Barontran DO Work Phone: [facility] 06-10-2022 13:57-0400 Body temperature 98.01 [degF] Christ Rashad Aliciatran DO Work Phone: [facility] 06-10-2022 13:57-0400 Body weight 47.81 kg Christ Barontran DO Work Phone: [facility] 06-10-2022 13:57-0400 Diastolic blood pressure 62 mm[Hg] Christmayra Barontran DO Work Phone: [facility] 06-10-2022 13:57-0400 Heart rate 66 /min Christmayar Barontran DO Work Phone: [facility] 06-10-2022 13:57-0400 Respiratory rate 14 /min Christmayra Barontran DO Work Phone: [facility] 06-10-2022 13:57-0400 SaO2% (BldA) [Mass fraction] 92 % Christ Barontran DO Work Phone: [facility] 06-10-2022 13:57-0400 Systolic blood pressure 130 mm[Hg] Christ Solorzano Maralnell DO Work Phone: [facility] 05-30-2022 15:11-0400 Heart rate 61 /min Christ Gardiner DO Work Phone: [facility] 05-30-2022 15:11-0400 SaO2% (BldA) [Mass fraction] 90 % Christ Barontran DO Work Phone: [facility] 05-30-2022 14:57-0400 Body mass index (BMI) [Ratio] 24.35 kg/m2 Christ Barontran DO Work Phone: [facility] 05-30-2022 14:57-0400 Body temperature 97.59 [degF] Christ Barontran DO Work Phone: [facility] 05-30-2022 14:57-0400 Body weight 48.4 kg Christ Barontran DO Work Phone: [facility] 05-30-2022 14:57-0400 Respiratory rate 12 /min Christ Gardiner DO Work Phone: [facility] 04-15-2022 14:18-0500 Body height 141 cm Christ Gardiner DO Work Phone: [facility] 04-15-2022 14:18-0500 Body mass index (BMI) [Ratio] 24.9 kg/m2 Christ Barontran DO Work Phone: [facility] 04-15-2022 14:18-0500 Body temperature 97.11 [degF] Christ Barontran DO Work Phone: [facility] 04-15-2022 14:18-0500 Body weight 49.49 kg Christ Barontran DO Work Phone: [facility] 04-15-2022 14:18-0500 Diastolic blood pressure 60 mm[Hg] Christ Barontran DO Work Phone: [facility] 04-15-2022 14:18-0500 Heart rate 63 /min Christ Gardiner DO Work Phone: [facility] 04-15-2022 14:18-0500 Respiratory rate 14 /min Christ Gardiner DO Work Phone: [facility] 04-15-2022 14:18-0500 SaO2% (BldA) [Mass fraction] 92 % Christ Barontran DO Work Phone: [facility] 04-15-2022 14:18-0500 Systolic blood pressure 108 mm[Hg] Christ Rashad Maralnell DO Work Phone: [facility] 03-12-2022 09:59-0500 Body height 153.67 cm Christ Gardiner Work Phone: DC-Wvzuaabxxz-Zntz a Work Phone: 03-12-2022 09:59-0500 Body mass index (BMI) [Ratio] 20.94 kg/m2 Christ Gardiner Work Phone: LQ-Booopslkid-Izxz a Work Phone: 03-12-2022 09:59-0500 Body surface area Derived from formula 1.45 m2 Christ Gardiner Work Phone: VF-Gqapldqmfu-Nwvc a Work Phone: 03-12-2022 09:59-0500 Body weight 49.44 kg Christ Solorzano Maraltran Work Phone: PG-Yryvrrwktq-Rogt a Work Phone: 03-12-2022 09:59-0500 Diastolic blood pressure 70 mm[Hg] Christ Barontran Work Phone: TQ-Medbyetijk-Ulbz a Work Phone: 03-12-2022 09:59-0500 Heart rate 62 /min Christ Barontran Work Phone: DV-Cypmbrxjhw-Udvn a Work Phone: 03-12-2022 09:59-0500 SaO2% (BldA) [Mass fraction] 92 % Christ E Van Nostran Work Phone: VV-Otpgnvkhrs-Keyr a Work Phone: 03-12-2022 09:59-0500 Systolic blood pressure 129 mm[Hg] Christ Bray Van Nostran Work Phone: DY-Qslumzwcrt-Tnyj a Work Phone: 10-16-2021 10:45-0400 Body mass [...] [facility] Work Phone: 10-16-2021 10:45-0400 Diastolic blood pressure 75 mm[Hg] Christ Bray Van Nostran Work Phone: [facility] Work Phone: 10-16-2021 10:45-0400 Heart rate 61 /min Christ Bray Van Nostran Work Phone: [facility] Work Phone: 10-16-2021 10:45-0400 Respiratory rate 12 /min Christ Bray Van Nostran Work Phone: [facility] Work Phone: 10-16-2021 10:45-0400 SaO2% (BldA) [Mass fraction] 93 % Christ Bray Van Nostran Work Phone: [facility] Work Phone: 10-16-2021 10:45-0400 Systolic blood pressure 150 mm[Hg] Christ Solorzano Nostran Work Phone: [facility] Work Phone: 08-14-2021 13:12-0400 Body height 153.67 cm Christ Solorzano Nostran Work Phone: DC-Vesdxaznda-Rqdp [address] [place] Work Phone: 08-14-2021 13:12-0400 Body mass index (BMI) [Ratio] 20.36 kg/m2 Christ Solorzano Nostran Work Phone: WH-Xbfypkdbsf-Snrl [address] [place] Work Phone: 08-14-2021 13:12-0400 Body surface area Derived from formula 1.43 m2 Christ Asa Rashad Nostran Work Phone: AX-Fzxvlnzfci-Uevd [address] [place] Work Phone: 08-14-2021 13:12-0400 Body weight 48.08 kg Christ Solorzano Nostran Work Phone: JI-Faekyjnbld-Nuze [address] [place] Work Phone: 08-14-2021 13:12-0400 Diastolic blood pressure 72 mm[Hg] Christ Asa Rashad Nostran Work Phone: TI-Kybxalpbkn-Qwbr [address] [place] Work Phone: 08-14-2021 13:12-0400 Heart rate 64 /min Christ Asa Rashad Nostran Work Phone: EJ-Whqetiegdy-Xeza [address] [place] Work Phone: 08-14-2021 13:12-0400 SaO2% (BldA) [Mass fraction] 96 % Christ Bray Rashad Nostran Work Phone: FL-Tyuvtvzcbc-Qbpf [address] [place] Work Phone: 08-14-2021 13:12-0400 Systolic blood pressure 142 mm[Hg] Christ Bray Van Nostran Work Phone: EQ-Mvmbzofkuz-Dgbd [address] [place] Work Phone: 04-11-2021 10:39-0500 Body height 153.67 cm Christ Bray Van Nostran Work Phone: [facility] Work Phone: 04-11-2021 10:39-0500 Body mass index (BMI) [Ratio] 20.07 kg/m2 Christ Bray Van Nostran [facility] Work Phone: 04-11-2021 10:39-0500 Body surface area Derived from formula 1.43 m2 Christ Bray Van Nostran Work Phone: [facility] Work Phone: 04-11-2021 10:39-0500 Body temperature 97.5 [degF] Christ Bray Van Nostran Work Phone: [facility] Work Phone: 04-11-2021 10:39-0500 Body weight 47.4 kg Christ Bray Van Nostran Work Phone: [facility] Work Phone: 04-11-2021 10:39-0500 Diastolic blood pressure 72 mm[Hg] Christ Bray Van Nostran Work Phone: [facility] Work Phone: 04-11-2021 10:39-0500 Heart rate 63 /min Christ Bray Van Nostran Work Phone: [facility] Work Phone: 04-11-2021 10:39-0500 Respiratory rate 10 /min Christ Bray Van Nostran Work Phone: [facility] Work Phone: 04-11-2021 10:39-0500 SaO2% (BldA) [Mass fraction] 96 % Christ Gardiner [facility] Work Phone: 04-11-2021 10:39-0500 Systolic blood pressure 116 mm[Hg] Christ Gardiner [facility]: [facility] Work Phone: 04-05-2021 11:27-0500 Body height 153.67 cm Christ Gardiner Work Phone: CY-Jiuetgldbd-Naeb a Work Phone: 04-05-2021 11:27-0500 Body mass index (BMI) [Ratio] 19.98 kg/m2 Christ Gardiner Work Phone: JO-Pdypnekjkw-Erab a Work Phone: 04-05-2021 11:27-0500 Body surface area Derived from formula 1.42 m2 Christ Gardiner Work Phone: CM-Jpmdeoexce-Hcwg a Work Phone: 04-05-2021 11:27-0500 Body weight 47.17 kg Christ Gardiner Work Phone: PD-Yytacgiowz-Hisa a Work Phone: 04-05-2021 11:27-0500 Diastolic blood pressure 40 mm[Hg] Christ Gardiner Work Phone: JJ-Hwishhfgdu-Fyma a Work Phone: 04-05-2021 11:27-0500 Heart rate 63 /min Christ Solorzano Nostran Work Phone: JL-Pkdnfptwkr-Fdra a Work Phone: 04-05-2021 11:27-0500 SaO2% (BldA) [Mass fraction] 95 % Christ Barontran Work Phone: DE-Itnlnljhgo-Gcmi a Work Phone: 04-05-2021 11:27-0500 Systolic blood pressure 82 mm[Hg] Christ Gardiner Work Phone: PN-Nhaknhienq-Ecpc a Work Phone: 03-08-2021 14:30-0500 Body height 153.67 cm Christ Barontran Work Phone: FI-Wmxfnydphc-Ongv na Work Phone: 03-08-2021 14:30-0500 Body mass index (BMI) [Ratio] 19.59 kg/m2 Christ Barontran Work Phone: WV-Qjpgksyang-Paui na Work Phone: 03-08-2021 14:30-0500 Body surface area Derived from formula 1.41 m2 Christ Barontran Work Phone: EJ-Zauujckpmw-Nivn na Work Phone: 03-08-2021 14:30-0500 Body weight 46.27 kg Christ Barontran Work Phone: ON-Mmjnakjwmz-Fixe na Work Phone: 03-08-2021 14:30-0500 Diastolic blood pressure 74 mm[Hg] Christ Barontran Work Phone: PN-Hwaphatgqg-Jdgq na Work Phone: 03-08-2021 14:30-0500 Heart rate 59 /min Christ Asa Rashad Aliciatran Work Phone: JZ-Pbqxdmposy-Ncnw na Work Phone: 03-08-2021 14:30-0500 SaO2% (BldA) [Mass fraction] 94 % Christ Asa Rashad Aliciatran Work Phone: KP-Nljivgjbuo-Qkxb na Work Phone: 03-08-2021 14:30-0500 Systolic blood pressure 144 mm[Hg] Christ Bray Rashad Aliciatran Work Phone: ZL-Vgrrxnftof-Maim na Work Phone: 03-08-2021 14:30-0500 0 1 Christ Bray Van Nostran Work Phone: VE-Sjshfvmlto-Irhx na Work Phone: Comment on above: [employer] 12-25-2020 13:55-0500 Body mass index (BMI) [Ratio] 18.98 kg/m2 Christ Bray Van Nostran Work Phone: [facility] Work Phone: 12-25-2020 13:55-0500 Body surface area Derived from formula 1.37 m2 Christ Bray Van Nostran Work Phone: [facility] Work Phone: 12-25-2020 13:55-0500 Body temperature 98.4 [degF] Christ Bray Van Nostran Work Phone: [facility] Work Phone: 12-25-2020 13:55-0500 Body weight 44.09 kg Christ Bray Van Nostran Work Phone: [facility] Work Phone: 12-25-2020 13:55-0500 Diastolic blood pressure 71 mm[Hg] Christ Bray Van Nostran Work Phone: [...] [facility] Work Phone: 10-29-2020 07:44-0400 Body mass index (BMI) [Ratio] 18.61 kg/m2 Christ Bray Van Nostran Work Phone: [facility] Work Phone: 10-29-2020 07:44-0400 Body surface area Derived from formula 1.36 m2 Christ Bray Van Nostran Work Phone: [facility] Work Phone: 10-29-2020 07:44-0400 Body temperature 98.2 [degF] Christ Bray Van Nostran Work Phone: [facility] Work Phone: 10-29-2020 07:44-0400 Body weight 43.23 kg Christ Bray Van Nostran Work Phone: [facility] Work Phone: 10-29-2020 07:44-0400 Diastolic blood pressure 62 mm[Hg] Christ Bray Van Nostran Work Phone: -[facility] Work Phone: 10-29-2020 07:44-0400 Heart rate 66 /min Christ Bray Van Nostran Work Phone: [facility] Work Phone: 10-29-2020 07:44-0400 Systolic blood pressure 96 mm[Hg] Christ Bray Van Nostran Work Phone: [facility] Work Phone: 09-10-2020 10:53-0400 Diastolic blood pressure 61 mm[Hg] Christ Bray Van Nostran Work Phone: [facility] Work Phone: 09-10-2020 10:53-0400 Systolic blood pressure 163 mm[Hg] Christ Bray Van Nostran Work Phone: [facility] Work Phone: 09-10-2020 10:00-0400 Body height 152.4 cm Christ Bray Van Nostran [facility] Work Phone: 09-10-2020 10:00-0400 Body mass index (BMI) [Ratio] 19.53 kg/m2 Christ Bray Van Nostran Work Phone: [facility] Work Phone: 09-10-2020 10:00-0400 Body surface area Derived from formula 1.39 m2 Christ Bray Van Nostran Work Phone: [facility] Work Phone: 09-10-2020 10:00-0400 Body temperature 96.2 [degF] Christ Bray Van Nostran Work Phone: [facility] Work Phone: 09-10-2020 10:00-0400 Body weight 45.36 kg Christ Bray Van Nostran Work Phone: [facility] Work Phone: 09-10-2020 10:00-0400 Diastolic blood pressure 66 mm[Hg] Christ Bray Van Nostran Work Phone: [facility] Work Phone: 09-10-2020 10:00-0400 Heart rate 59 /min Christ Bray Van Nostran Work Phone: [facility] Work Phone: 09-10-2020 10:00-0400 SaO2% (BldA) [Mass fraction] 98 % Christ Bray Van Nostran Work Phone: [facility] Work Phone: 09-10-2020 10:00-0400 Systolic blood pressure 158 mm[Hg] Christ Bray Van Nostran Work Phone: [facility] Work Phone: 07-30-2020 14:11-0400 Body height 182.88 cm Christ Bray Van Nostran Work Phone: [facility] Work Phone: 07-30-2020 14:11-0400 Body mass index (BMI) [Ratio] 10.58 kg/m2 Christ Asa Rashad Nostran Work Phone: [facility] Work Phone: 07-30-2020 14:11-0400 Body surface area Derived from formula 1.43 m2 Christ Bray Rashad Nostran Work Phone: [facility] Work Phone: 07-30-2020 14:11-0400 Body temperature 97.7 [degF] Christ Bray Rashad Aliciatran Work Phone: [facility] Work Phone: 07-30-2020 14:11-0400 Body weight 35.38 kg Christ Bray Rashad Aliciatran Work Phone: [facility] Work Phone: 07-30-2020 14:11-0400 Heart rate 67 /min Christ Solorzano Triny Work Phone: [facility] Work Phone: 03-12-2020 11:53-0500 BMI (Body Mass Index) 19.96 kg/m2 Christ Gardiner [facility] Work Phone: 03-12-2020 11:53-0500 Body Temperature 97 [degF] [facility] Work Phone: 03-12-2020 11:53-0500 Body weight 46.35 kg [facility] Work Phone: 03-12-2020 11:53-0500 BP Diastolic 82 mm[Hg] Christ [facility] Work Phone: 03-12-2020 11:53-0500 BP Systolic 135 mm[Hg] Christmayra Barontran [facility] Work Phone: 03-12-2020 11:53-0500 BSA (Body Surface Area) 1.4 m2 Christ Rashad Nostran [facility] Work Phone: 03-12-2020 11:53-0500 Pulse (Heart Rate) 74 /min Christ Van Nostran [facility] Work Phone: 03-12-2020 11:53-0500 Pulse Oximetry 98 % Christmayra Barontran [facility] Work Phone: 09-06-2019 12:14-0400 BMI (Body Mass Index) 20.15 kg/m2 Christ Barontran [facility] Work Phone: 09-06-2019 12:14-0400 Body Temperature 98 [degF] Christ Rashad Aliciatran [facility] Work Phone: 09-06-2019 12:14-0400 Body weight 46.81 kg Christ [facility] Work Phone: 09-06-2019 12:14-0400 BP Diastolic 71 mm[Hg] Christ Solorzano Nostran [facility] Work Phone: 09-06-2019 12:14-0400 BP Systolic 128 mm[Hg] Christ Solorzano Nostran [facility] Work Phone: 09-06-2019 12:14-0400 BSA (Body Surface Area) 1.41 m2 Christ Solorzano Nostran [facility] Work Phone: 09-06-2019 12:14-0400 Pulse (Heart Rate) 59 /min Christ Solorzano Nostran [facility] Work Phone: 09-06-2019 12:14-0400 Pulse Oximetry 93 % Christ Solorzano Nostran [facility] Work Phone: 12-10-2018 12:32-0400 BMI (Body Mass Index) 18.44 kg/m2 Crystal Senthil [facility] Work Phone: 12-10-2018 12:32-0400 Body Temperature 98 [degF] Fela Lorenzoca [facility] Work Phone: 12-10-2018 [...] (Body Mass Index) 18.75 kg/m2 Costa Nieto [facility] Work Phone: 11-30-2018 16:28-0400 Body Temperature 97.7 [degF] Costa Nieto [facility] Work Phone: 11-30-2018 16:28-0400 Body weight 43.55 kg Costa Nieto [facility] Work Phone: 11-30-2018 16:28-0400 BP Diastolic 71 mm[Hg] Costa Nieto [facility] Work Phone: 11-30-2018 16:28-0400 BP Systolic 110 mm[Hg] Csota Nieto [facility] Work Phone: 11-30-2018 16:28-0400 BSA (Body Surface Area) 1.37 m2 Costa Nieto [facility] Work Phone: 11-30-2018 16:28-0400 Pulse (Heart Rate) 68 /min Costa Nieto [facility] Work Phone: 11-30-2018 16:28-0400 Pulse Oximetry 96 % Costa Nieto [facility] Work Phone: 11-30-2018 16:28-0400 Respiratory Rate 12 /min Costa Nieto [facility] Work Phone: 05-26-2018 16:15-0400 BMI (Body Mass Index) 18.98 kg/m2 [facility] Hugo [facility] Work Phone: 05-26-2018 16:15-0400 Body Temperature 98.1 [degF] [facility] Work Phone: 05-26-2018 16:15-0400 Body weight 44.08 kg [facility] Work Phone: 05-26-2018 16:15-0400 BP Diastolic 72 mm[Hg] [facility] Work Phone: 05-26-2018 16:15-0400 BP Systolic 124 mm[Hg] [facility] Work Phone: 05-26-2018 16:15-0400 BSA (Body Surface Area) 1.37 m2 [facility] Work Phone: 05-26-2018 16:15-0400 Pulse (Heart Rate) 58 /min Benjy F[facility] Work Phone: 05-26-2018 16:15-0400 Pulse Oximetry 95 % Benjy [facility] Work Phone: 05-26-2018 16:15-0400 Respiratory Rate 12 /min Benjy Killian [facility] Work Phone: 05-26-2018 16:15-0400 Weight 44.08 kg Benjy Zepeda [facility] Work Phone: 07-07-2017 07:35-0400 Body temperature 37.0 degrees C [facility] Comment on above: Result Comment: NOTE: PATIENT RESULTS AR E NOT CORRECTED FOR TEMPERATURE. Performed By: #### U AMIC ####[address] [id number] 07-06-2017 17:24-0400 Body temperature 37.0 degrees C [facility] Comment on above: Result Comment: NOTE: PATIENT RESULTS AR E NOT CORRECTED FOR TEMPERATURE. Performed By: #### U A ####[address] [id number] 07-03-2017 03:35-0400 Body temperature 37.0 degrees C [facility] Comment on above: Result Comment: NOTE: PATIENT RESULTS AR E NOT CORRECTED FOR TEMPERATURE. Performed By: #### L IPID ####[place] [address] Encounters Encounter Date Encounter Type Care Provider Facility Start: 07-28-2024 Non-patient / Non-visit Dr. Neym[facility] Work Phone: Start: 07-27-2024 Non-patient / Non-visit Dr. Neymar [facility] Work Phone: Start: 07-27-2024 Non-patient / Non-visit Dr. Thanh chopra DO [facility] Start: 07-26-2024 Non-patient / Non-visit Dr. Thanh chopra DO [facility] Start: 07-26-2024 Non-patient / Non-visit Dr. Neymar Cunningham MD [facility] [facility] Work Phone: Start: 07-26-2024 ambulatory Kaden Corcoran Facility:[facility] Start: 07-26-2024 Non-patient / Non-visit Dr. Nikolas HUGHES [facility] Start: 07-25-2024 Non-patient / Non-visit Dr. Thanh chopra DO [facility] Start: 07-25-2024 ambulatory Kam Walters ty:[facility] Start: 07-25-2024 End: 07-28-2024 Evaluation and management of inpatient Dr. Hayden Diaz DO -[facility] 3 Work Phone: Start: 04-14-2024 End: 04-14-[address] Kam Ocampo Sr., DO Work Phone: [facility] Work Phone: Start: 04-14-2024 End: 04-14-2024 [facility] Start: 04-14-2024 End: 04-14-2024 ambulatory Kam UFCHS Facility:[facility] Start: 02-09-2024 ambulatory Kam Walters ty:[facility] Start: 02-09-2024 [facility]istered [facility] Start: 02-08-2024 End: 02-08-2024 Departed Referred Kam Manuelstjoaquin [facility] Start: 02-08-2024 End: 02-08-2024 ambulatory Kam FUCHS Facility:[facility] Start: 01-26-2024 End: 01-26-2024 Departed Referred Kam Manuelstjoaquin [facility] Start: 01-26-2024 End: 01-26-2024 ambulatory Kam Ocampo Sr. Facility:[facility] Start: 01-10-2024 End: 01-10-2024 ambulatory Kam Terrence FUCHS Facility:[facility] Start: 12-14-2023 End: 12-14-2023 ambulatory Kam Depjonio Sr. Facility:[facility] Start: 10-21-2023 End: 10-21-2023 ambulatory Kam Depjonio Sr. Facility:[facility] Start: 09-16-2023 ambulatory Kam Terrence FUCHS Facili ty:[facility] Start: 09-02-2023 End: 09-02-2023 ambulatory Kam Budo JEF Facility:[facility] Start: 04-15-2023 End: 04-15-2023 ambulatory [facility] Work Phone: Start: 04-15-2023 End: 04-15-2023 Departed Referred [facility] Start: 03-11-2023 End: 03-11-2023 Departed Referred [facility] Start: 02-19-2023 End: 02-19-2023 ambulatory [facility] Work Phone: Start: 02-19-2023 End: 02-19-2023 [facility] Start: 02-19-[address] Amalia Donahue Work Phone: [facility] Start: 02-10-2023 End: 02-10-[address] Amalia Donahue Work Phone: [facility] Work Phone: Start: 02-10-2023 End: 02-10-[address] Amalia Donahue Work Phone: [facility] Start: 01-27-2023 End: 01-27-[address] Amalia Donahue Work Phone: [facility] Start: 12-22-2022 End: 12-22-[address] Amalia Donahue Work Phone: [facility] Work Phone: Start: 12-22-2022 End: 12-22-[address] Amalia Donahue Work Phone: [facility] [place] Work Phone: Start: 12-02-2022 End: 12-02-[address] Amalia Donahue Work Phone: [facility] Work Phone: Start: 12-02-2022 End: 12-02-[address] Amalia Donahue Work Phone: [facility] Start: 12-02-[address] Amalia Donahue Work Phone: [facility] Start: 12-01-2022 End: 12-01-[address] Amalia Donahue Work Phone: [facility] Work Phone: Start: 12-01-2022 End: 12-01-[address] Amalia Donahue Work Phone: [facility] Start: 11-28-[address] Amalia Donahue Work Phone: [facility] Start: 11-10-[address] Amalia Donahue Work Phone: [facility] Start: 11-06-2022 End: 11-07-2022 Emergency department patient visit Dr. Amalia Donahue Work Phone: [facility]-Emergency Department Work Phone: Start: 11-06-[address] Amalia Donahue Work Phone: [facility] Start: 11-02-2022 Non-patient / Non-visit Dr. Shelbi Donhaue Work Phone: [facility] Work Phone: Start: 11-01-2022 Non-patient / Non-visit Dr. Shelbi Donahue Work Phone: [facility] Work Phone: Start: 10-31-2022 Non-patient / Non-visit Dr. Shelbi Donahue Work Phone: [facility] Work Phone: Start: 10-31-2022 Non-patient / Non-visit Dr. Shelbi Donahue Work Phone: [facility] Start: 10-31-2022 Non-patient / Non-visit Dr. Shelbi Donahue Work Phone: [facility] Start: 10-30-2022 End: 11-02-2022 Evaluation and management of inpatient [facility]-Intensive Care Unit Work Phone: Start: 10-27-2022 Office outpatient vi sit 15 minutes Christ Gardiner Work Phone: DT-Oermfucdau-Clgygw[address] [place] Work Phone: Start: 10-10-2022 Evaluation and management of inpatient [facility] Start: 10-10-2022 End: 10-16-2022 Evaluation and management of inpatient Evelin Salcedo DO Work Phone: [facility] 2E TELEMET[facility] Comment on above: Proctocolitis (Prima ry Dx); Abdominal pain, generalized; Constipation, unspecified constipation type Start: 10-07-2022 End: 10-07-2022 ambulatory [facility] Start: 10-07-2022 End: 10-07-2022 Office outpatient visit 25 minutes Christ Gardiner DO Work Phone: [facility] Comment on above: Benign essential hyp ertension (Primary Dx); Osteoporosis, unspecified osteoporosis type, unspecified pathological fracture presence; Coronary artery disease without angina pectoris, unspecified vessel or lesion type, unspecified whether nooksack or transplanted heart; Stage 3a chronic kidney disease (CMS/HCC); Hypercholesterolemia; Allergic rhinitis, unspecified seasonality, unspecified trigger; Multiple allergies; Lower abdominal pain; Anemia in other chronic diseases classified elsewhere Start: 09-11-2022 Office outpatient vi sit 10 minutes Christ Gardiner Work Phone: [facility] [address] [place] Work Phone: Start: 09-11-[address] Christ Gardiner Facility:[id number] Start: 08-27-2022 AUDIT Christ Vazquez Work Phone: [facility] Work Phone: Start: 06-30-[address] Christ Gardiner Facility:[id number] Start: 06-19-2022 End: 06-19-2022 ambulatory [facility] Start: 06-19-2022 End: 06-19-2022 Office outpatient visit 15 minutes Christ Gardiner DO Work Phone: [facility] Comment on above: Hypoxia; Pneumonia of right lower lobe due to infectious organism; Abdominal pain, unspecified abdominal location Start: 06-12-2022 Office outpatient vi sit 15 minutes Christ Gardiner Work Phone: [facility]-Yhsrfdnmiw-Tafxf[facility] [place] Work Phone: Start: 06-12-2022 [address] Ms[address] Apple Aguilar Facyaa lity:[id number] Start: 06-10-2022 End: 06-10-2022 ambulatory [facility] Start: 06-10-2022 End: 06-10-2022 Office outpatient visit 25 minutes Christ Gardiner DO Work Phone: [facility] Comment on above: Pneumonia of right l ower lobe due to infectious organism (Primary Dx); Hypoxia; Benign essential hypertension; Abdominal pain, unspecified abdominal location; Pneumonia of right lung due to infectious organism, unspecified part of lung Start: 05-30-[address] Christ Gardiner Facility:[id number] Start: 05-30-2022 End: 05-30-2022 ambulatory [facility] Start: 05-30-2022 End: 05-30-2022 Office outpatient visit 40 minutes Christ Gardiner DO Work Phone: [facility] Comment on above: Hypoxia (Primary Dx) ; Coronary artery disease without angina pectoris, unspecified vessel or lesion type, unspecified whether nooksack or transplanted heart; Benign essential hypertension; Pneumonia of right lung due to infectious organism, unspecified part of lung Start: 05-29-2022 End: 05-30-2022 ambulatory [facility] Start: 05-09-[address] Christ Gardiner Facility:[id number] Start: 04-15-2022 Encounter for genera l adult medical examination without abnormal findings [facility] Ambulatory Start: 04-15-2022 End: 04-15-2022 ambulatory [facility] Ambulatory Start: 04-15-2022 End: 04-15-2022 Encounter for general adult medical examination without abnormal findings [facility] Ambulatory Start: 04-15-2022 End: 04-15-2022 Assay of hemosiderin, quant Christ Gardiner DO Work Phone: [facility] Work Phone: Start: 04-15-2022 End: 04-15-2022 Patient encounter procedure [facility] Comment on above: 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 (Primary Dx); Osteoporosis, unspecified osteoporosis type, unspecified pathological fracture presence; Screening for osteoporosis; Postmenopausal estrogen deficiency; Benign essential hypertension; Coronary artery disease without angina pectoris, unspecified vessel or lesion type, unspecified whether nooksack or transplanted heart; Gastroesophageal reflux disease, unspecified whether esophagitis present; Stage 3a chronic kidney disease; Bilateral carotid artery stenosis; Aortic valve stenosis, etiology of cardiac valve disease unspecified; Anemia in other chronic diseases classified elsewhere; Hypercholesterolemia; Routine general medical examination at health care facility Start: 04-15-2022 End: 04-15-2022 Patient encounter status Christ Bray Rashad Aliciatran DO Work Phone: [facility] Work Phone: Start: 04-04-2022 Chart Update Christ Solorzano N ostem Work Phone: TJ-Trcbqipyjy-Vpizy Work Phone: Start: 03-12-2022 FUV, Provider: Apple Beth, Status: Pen, Time: 11:30 AM Christ Gardiner Work Phone: [facility] Work Phone: Start: 03-12-2022 CAROTID, Provider: [facility]OULAYE [facility], Status: Pen, Time: 10:00 AM Christ Barontran Work Phone: [facility] Work Phone: Start: 03-12-2022 ECHO, Provider: RAI HART,MG CARD, Status: Pen, Time: 9:00 AM Christ Solorzano Nostran Work Phone: [facility] Work Phone: Start: 03-12-2022 ambulatory [employer] JEFF Faci lity:[id number] Start: 03-11-2022 AUDIT Christ Solorzano N ostran Work Phone: [facility] Work Phone: Start: 03-10-2022 AUDIT Christ Solorzano N ostran Work Phone: [facility] Work Phone: Start: 02-24-2022 AUDIT Christ Solorzano N ostran Work Phone: [facility] Work Phone: Start: 02-19-2022 AUDIT Christ Solorzano N ostran Work Phone: [facility] Work Phone: Start: 10-17-2021 AUDIT Christ E Van N ostran Work Phone: [facility] Work Phone: Start: 10-16-[address] Christ Gardiner Facility:[id number] Start: 10-16-2021 Office outpatient vi sit 40 minutes Christ Solorzano Nostran Work Phone: [facility] Work Phone: Start: 08-14-2021 Office outpatient vi sit 15 minutes Christ Solorzano Nostran Work Phone: AB-Aivafxykxv-Zbrltj [address] [place] Work Phone: Start: 07-25-2021 AUDIT [...] Christ Bray Van N ostran Work Phone: RY-Wpvwpynqve-Hwujm Work Phone: Start: 04-15-2021 AUDIT Christ Bray Van N ostran Work Phone: [facility] Work Phone: Start: 04-11-2021 Adv care pln/ no alt dcsn mkr docd or refusal Christ Solorzano Nostran Work Phone: [facility] Work Phone: Start: 04-05-2021 FUV, Provider: Apple Beth, Status: Pen, Time: 11:30 AM Christ Bray Van Nostran Work Phone: [facility] Work Phone: Start: 04-05-2021 Office outpatient vi sit 15 minutes Christ Asa Van Nostran Work Phone: [facility] Work Phone: Start: 04-04-2021 ECHO, Provider: RAI HART,MG CARD, Status: Pen, Time: 1:00 PM Christ Bray Van Nostran Work Phone: [facility] Work Phone: Start: 04-03-2021 AUDIT Christ Bray Van N ostran Work Phone: [facility] Work Phone: Start: 03-08-2021 Current tobacco non- user cad cap copd pv dm Christ Bray Van Nostran Work Phone: [id number] Work Phone: Start: 02-28-2021 AUDIT Christ Bray Van N ostran Work Phone: [facility] Work Phone: Start: 02-20-2021 AUDIT Christ Bray Van N ostran Work Phone: [facility] Work Phone: Start: 01-23-2021 AUDIT Christ Bray Van N ostran Work Phone: [facility] Work Phone: Start: 01-17-2021 AUDIT Crhist Bray Van N ostran Work Phone: [facility] Work Phone: Start: 12-25-2020 Patient encounter procedure Christ Bray Van Nostran Work Phone: [facility] Work Phone: Start: 11-22-2020 AUDIT Christ Asa Van N ostran Work Phone: [facility] Work Phone: Start: 10-29-2020 Patient encounter procedure Christ E Van Nostran Work Phone: [facility] Work Phone: Start: 10-26-2020 AUDIT Christ Asa Van N ostran Work Phone: [facility] Work Phone: Start: 10-25-2020 Chart Update Christ Asa Van N ostran Work Phone: [facility] Work Phone: Start: 10-23-2020 Chart Update Christ Asa Van N ostran Work Phone: [facility] Work Phone: Start: 09-10-2020 Office outpatient vi sit 25 minutes Christ E Van Nostran Work Phone: [facility] Work Phone: Start: 07-30-2020 Office outpatient ne w 30 minutes Christ Bray Van Nostran Work Phone: [facility] Work Phone: Start: 07-30-2020 Patient encounter procedure Christ E Van Nostran Work Phone: [facility] Work Phone: Start: 04-16-2020 Patient encounter procedure Christ Van Nostran [facility] Work Phone: Start: 04-06-2020 Office outpatient ne w 30 minutes Christ E Van Nostran Work Phone: [facility] Work Phone: Start: 04-06-2020 Patient encounter procedure Christ Rashad Nostran [facility] Work Phone: Start: 03-22-2020 Patient encounter procedure Christ Solorzano Nostran [facility] Work Phone: Start: 03-12-2020 Patient encounter procedure Christ Solorzano Nostran [facility] Work Phone: Start: 11-09-2019 Patient encounter procedure Christ Solorzano Nostran [facility] Work Phone: Start: 09-06-2019 Patient encounter procedure Christ Barontran [facility] Work Phone: Start: 04-20-2019 Patient encounter procedure Christ Solorzano Nostran [facility] Work Phone: Start: 03-04-2019 Patient encounter procedure Christ Solorzano Nostran [facility] Work Phone: Start: 12-29-2018 Patient encounter procedure Christ Barontran [facility] Work Phone: Start: 12-21-2018 Patient encounter procedure Christ Barontran [facility] Work Phone: Start: 12-10-2018 Patient encounter procedure Fela Ndiaye [facility] Work Phone: Start: 11-30-2018 Patient encounter procedure Costa Nieto [facility] Work Phone: Start: 05-26-2018 Patient encounter procedure Benjy Garnett [facility] Work Phone: Start: 02-24-2018 Patient encounter procedure Benjy Rayaar [facility] Work Phone: Start: 02-11-2018 Patient encounter procedure Yui Hugo [facility] Work Phone: Start: 12-09-2017 Patient encounter procedure Eliot Shin Facility:[facility] Start: 11-25-2017 Patient encounter procedure Yui Hugo [facility] Work Phone: Start: 11-19-2017 Patient encounter procedure Yui Hugo [facility] Work Phone: Start: 11-06-2017 Patient encounter procedure Benjy Garnett [facility] Work Phone: Start: 11-06-2017 Patient encounter procedure Benjy Garnett Facility:[facility] Start: 10-22-2017 Patient encounter procedure Benjy Garnett [facility] Work Phone: Start: 10-10-2017 Observation care discharge management Benjy Garnett [facility] Start: 10-10-2017 End: 10-13-2017 Evaluation and management of inpatient Benjy Garnett Facility:54 Start: 10-09-2017 Initial observation care/day 50 minutes Benjy Garnett [facility] Start: 10-05-2017 Patient encounter procedure Benjy Garnett Facility:[facility] Start: 09-06-2017 End: 09-08-2017 Evaluation and management of inpatient [facility] Juanito [facility] Start: 09-05-2017 [facility] Start: 09-05-2017 End: 09-05-2017 Patient encounter procedure Maria A Vance Facility:54 Start: 08-26-2017 End: 09-01-2017 Evaluation and management of inpatient Jessenia Tapia Facility:[facility] Start: 08-25-2017 Emergency dept [facility] high [facility] Start: 08-25-2017 End: 08-26-2017 Patient encounter procedure FINESSE PINEDA Facility:54 Start: 08-21-2017 Patient encounter procedure Benjy Garnett Facility:54 Start: 07-28-2017 [facility] Start: 07-28-2017 End: 07-29-2017 Evaluation and management of inpatient Bnejy Garnett Facility:54 Start: 07-27-2017 Sbsq observation care/day [facility] Start: 07-26-2017 Initial observation care/day 50 minutes Benjy Garnett [facility] Start: 07-09-2017 End: 07-17-2017 Evaluation and management of inpatient Manny Arana Facility:54 Start: 07-02-2017 End: 07-02-2017 Patient encounter procedure Spencer Hardy Facility:54 Start: 06-18-2017 Patient encounter procedure Niralienid Cabralohar [facility] Work Phone: Start: 04-15-2017 Patient encounter procedure Chrisaden Garnett [facility] Work Phone: Start: 03-20-2017 Patient encounter procedure Niralienid Garnett [facility] Work Phone: Start: 03-02-2017 Patient encounter procedure Benjy Garnett Facility:[facility] Start: 02-16-2017 Patient encounter procedure Niralienid Garnett [facility] Work Phone: Start: 01-21-2017 Patient encounter procedure Benjy Garnett Facility:[facility] Start: 01-12-2017 Patient encounter procedure Chrisaden Garnett [facility] Work Phone: Start: 11-25-2016 Patient encounter procedure Chrisaden Garnett [facility] Work Phone: Start: 10-01-2016 Patient encounter procedure Niralienid Garnett [facility] Work Phone: Start: 07-30-2016 Patient encounter procedure Chrisaden Garnett [facility] Work Phone: Patient encounter procedure Christ Gardiner Work Phone: [facility] Work Phone: Procedures Date Procedure Procedure Detail Performing Clinician Start: 07-28-[address] Jacobo Moya DO Work Phone: Start: 07-28-[address] Jacobo Moya DO Work Phone: Start: 07-28-2024 Total iron binding capacity measurement Dr. Jacobo Moya DO Work Phone: Start: 07-26-2024 Intramedullary nailing of femur Dr. Jacobo Moya DO Work Phone: Start: 07-26-[address] Jacobo Moya DO Work Phone: Start: 07-26-2024 Plain X-ray of hip Dr. Jacobo Moya DO Work Phone: Start: 07-26-2024 Antibody screen Thanh Mclaughlin Comment on above: Order Comment: S Performed By: #### L 100.0100, L500.2500 #### [facility] [place], [address] Start: 07-25-2024 Urnls dip stick/tablet reagent auto microscopy Dr. Jacobo Moya DO Work Phone: Start: 07-25-2024 Plain X-ray of femur Dr. Jacobo Moya DO Work Phone: Start: 07-25-2024 Plain chest X-ray Dr. Jacobo Moya DO Work Phone: Start: 07-25-2024 Plain x-ray of pelvis and lower extremity Dr. Jacobo Moya DO Work Phone: Start: 02-08-2024 Influenza & RSV (PCR) Dr. Kam Ocampo Sr. DO Work Phone: Start: 01-25-[address] Kam Ocampo Sr. DO Work Phone: Start: 02-19-[address] Amalia Donahue Work Phone: Start: 12-22-2022 CT of chest without contrast Dr. Amalia simmons Work Phone: Start: 12-02-2022 Acid fast bacilli culture Dr. Amalia browning Work Phone: Start: 12-02-2022 Cytopathology procedure, preparation of smear, genital source Dr. Amalia Donahue Work Phone: Start: 12-01-2022 Acid fast bacilli culture Dr. Amalia browning Work Phone: Start: 12-01-2022 Cytopathology procedure, preparation of smear, genital source Dr. Amalia Donahue Work Phone: Start: 12-01-2022 Investigation of transfusion reaction Dr. Amalia Donahue Work Phone: Start: 12-01-[address] Amalia Donahue Work Phone: Start: 11-28-2022 Acid fast bacilli culture Dr. Amalia browning Work Phone: Start: 11-28-2022 Cytopathology procedure, preparation of smear, genital source Dr. Amalia Donahue Work Phone: Start: 11-06-2022 Plain chest X-ray Dr. Amalia Donahue Work Phone: Start: 11-06-2022 CT of head without contrast Dr. Amalia huang Work Phone: Start: 11-06-[address] Amalia Donahue Work Phone: Start: 11-01-2022 MRI of brain without contrast Dr. Amalia Donahue Work Phone: Start: 10-31-2022 End: 10-31-2022 CT of head without contrast Dr. Amalia huang Work Phone: Start: 10-30-2022 Plain chest X-ray Dr. Amalia Donahue Work Phone: Start: 10-30-2022 CT angiography of head and neck Start: 10-30-2022 CT of head without contrast Start: 10-16-2022 SARS-CoV-2 (COVID-19) Ag [Presence] in Respiratory specimen by Rapid immunoassay Eder oMnterroso MD Work Phone: Start: 10-16-2022 Basic metabolic panel calcium total Eder Monterroso MD Work Phone: Start: 10-15-2022 Basic metabolic panel calcium total Ranjeet Vogt DO Work Phone: Start: 10-14-2022 Radiologic exam abdomen 1 view Ron booth DO Work Phone: Start: 10-14-2022 Basic metabolic panel calcium total Ranjeet Vogt DO Work Phone: Start: 10-13-2022 Radiologic exam chest 2 views Ranjeet V ogt DO Work Phone: Start: 10-13-2022 Basic metabolic panel calcium total Ranjeet Vogt DO Work Phone: Start: 10-12-2022 Basic metabolic panel calcium total Ranjeet Vogt DO Work Phone: Start: 10-11-2022 Smr prim src gram/giemsa stain bct fungi/cell Ranjeet Vogt DO Work Phone: Start: 10-11-2022 Radiologic exam chest single view David Lucio MD Work Phone: Start: 10-11-2022 Comprehensive metabolic panel Akil sales MD Work Phone: Start: 10-11-2022 Drug screen quantitative vancomycin Akil Lucio MD Work Phone: Start: 10-11-2022 Iaad ia mult step method nos each organism Akil Lucio MD Work Phone: Start: 10-10-2022 Ct abdomen & pelvis w/contrast material Celeste FIGUEROA-C Work Phone: Start: 10-10-2022 Urinalysis complete panel - Urine Celeste FIGUEROA-C Work Phone: Start: 10-10-2022 Urnls dip stick/tablet reagent auto microscopy Celeste FIGUEROA-C Work Phone: Start: 10-10-2022 SARS-COV-2, FLU A/B, AND RSV COMBO Christina Oneal PA-C Work Phone: Start: 09-01-2023 Basic metabolic panel calcium total Celeste Oneal MARK Work Phone: Start: 10-10-2022 Ecg routine ecg w/least 12 lds i&r only Celeste Jm FLORES Work Phone: Start: 10-07-2022 FOLLOW UP IN [...] 1996 panel - Serum or Plasma Sara Gardiner DO Work Phone: Start: 03-12-2022 Follow-up visit Start: 03-12-2022 Echocardiography Christ Gardiner Work Phone: Start: 04-04-2021 Echocardiography Christ Gardiner Work Phone: Start: 04-03-2021 Lipid 1996 panel - Serum or Plasma Sara Gardiner DO Work Phone: Start: 04-06-2020 Echocardiography Christ [...] Start: 10-09-2017 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6 yr/> Chenguttai Hugo Start: 10-09-2017 Iv infusion hydration each additional hour Chenguttai Hugo Start: 10-09-2017 Iv infusion ther proph addl sequential to 1 hr Chenguttai Hugo Start: 10-09-2017 Iv infusion therapy prophylaxis/dx ea hour Chenguttai Hugo Start: 10-09-2017 Iv infusion therapy/prophylaxis /dx 1st to 1 hr Chenguttai Hugo Start: 10-09-2017 Therapeutic injection iv push each new drug Chenguttai Hugo Start: 08-26-2017 Drainage of Stomach with Drainage Device, Via Natural or Artificial Opening Jessenia Tapia Start: 08-25-2017 Iv infusion hydration each additional hour Chenguttai Hugo Start: 08-25-2017 Ther proph/dx njx ea seql iv push sbst/drug fac Chenguttai Hugo Start: 08-25-2017 Ther proph/dx njx iv push single/1st sbst/drug Chenguttai Hugo Start: 08-25-2017 Therapeutic injection iv push each new drug Chenguttai Hugo Start: 07-28-2017 Iv infusion hydration each additional hour Chenguttai Hugo Start: 07-27-2017 Iv infusion hydration each additional hour Chenguttai Hugo Start: 07-26-2017 Iv infusion hydration each additional hour Chenguttai Hugo Start: 07-26-2017 Iv infusion therapy/prophylaxis /dx 1st to 1 hr Niralitai Hugo Start: 07-07-2017 Echocardiography Niralitayaa Garnett Start: 07-04-2017 Resection of Right Large Intestine, Open Approach Niralitayaa Garnett Start: 07-04-2017 Ultrasonography of Left Jugular Veins, Guidance Benjy Garnett Start: 07-02-2017 Antibody screen Benjy Garnett Comment on above: Performed By: #### LIPID ####GENEVA [address] [address] Start: 12-11-2011 Exploratory Laparoscopy Christ Bray Van Nostran Work Phone: Comment on above: explorative [...] Comment on above: Completed: 2008 Esophagogastroduodenoscopy C henguttayaa Rayaar History of CABG Benjy lott Comment on above: Completed: 2009 End: 12-11-2011 History of Exploratory Laparoscopy Chris Garnett Hysterectomy Niralitayaa Mano joe Comment on above: Completed: 1972 Partial resection of colon S valentín Brya [employer] Nostran Work Phone: Screening colonoscopy Matthew Rayaar Total knee replacement Perez juanatai Hugo Comment on above: Completed: 2003 Completed: 2008 Plan of Treatment Date Care Activity Detail Author Start: 05-30-2027 Lipid panel Lipid Panel [facility] Start: 04-03-2026 Lipid panel Lipid Panel [facility] Start: 07-28-2024 [facility] Start: 07-28-2024 Patient discharge [facility] Start: 07-28-2024 [facility] Start: 07-27-2024 Continuous pulse oximetry [facility] Start: 07-27-2024 Dual pressure sponta neous ventilation support [facility] Start: 07-26-2024 End: 07-26-2024 [facility] Start: 07-26-2024 Ambulation therapy management [facility] Start: 07-26-2024 Application of device W [facility] Start: 07-26-2024 Exercises [facility] Start: 07-26-2024 Following clinical pathway protocol [facility] Start: 07-26-2024 Introduction of urin bhargav catheter [facility] Start: 07-26-2024 Neurovascular assessment [facility] Start: 07-26-2024 Patient education [facility] Start: 07-26-2024 Provision of activit y privileges [facility] Start: 07-26-2024 Recommendation to continue with treatment [facility] Start: 07-26-2024 Referral to occupati onal therapist [facility] Start: 07-26-2024 Referral to service [facility] Start: 07-26-2024 Skin care [facility] Start: 07-26-2024 Vital signs measurements [facility] Start: 07-26-2024 Wound care [facility] Start: 07-26-2024 Continuous positive airway pressure ventilation treatment [facility] Start: 07-26-2024 Inhalation therapy procedure [facility] Start: 07-25-2024 [facility] Start: 07-25-2024 End: 07-25-2024 Following clinical pathway protocol [facility] Start: 07-25-2024 Assessment of risk o f venous thromboembolism [facility] Start: 07-25-2024 Consultation [facility] Start: 07-25-2024 Insertion of cathete r into peripheral vein [facility] Start: 07-25-2024 Oxygen therapy [facility] Start: 07-25-2024 Providing care accor ding to standard [facility] Start: 07-25-2024 Provision of activit y privileges [facility] Start: 07-25-2024 Referral to occupati onal therapist [facility] Start: 07-25-2024 Referral to service [facility] Start: 07-25-2024 [facility] Start: 07-25-2024 Hospital admission, emergency, from emergency room, medical nature [facility] Start: 07-25-2024 Plain X-ray of femur Femur Min 2 Vie ws [facility] Start: 07-25-2024 End: 07-25-2024 [facility] Start: 07-25-2024 Verification routine [facility] Start: 07-25-2024 Admission procedure [facility] Start: 07-25-2024 [facility] Start: 07-08-2023 DTaP/Tdap/Td Vaccine s (2 - Td or Tdap) DTaP/Tdap/Td Vaccines (2 - Td or Tdap) [facility] Start: 05-30-2023 Creatinine measurement Creatinine Le tiffany [facility] Start: 05-30-2023 Potassium measurement Potassium Leve l [facility] Start: 05-10-2023 Screening for osteoporosis Bone Density Scan [facility] Start: 04-17-2023 Annual Wellness Visi t (AWV) Annual Wellness Visit (AWV) [facility] Start: 04-17-2023 Medicare Annual Well ness Visit Medicare Annual Wellness Visit (AWV) [facility] Start: 04-09-2023 End: 10-08-2023 CBC W Auto Differential panel - Blood CBC and Auto Differential Lab Routine Anemia in other chronic diseases classified elsewhere Expected: 04/09/2023 (Approximate), Expires: 10/08/2023 [facility] Service Area Work Phone: Comment on above: Expected: 04/09/2023 (Approximate), Expires: 10/08/2023 Start: 04-09-2023 End: 10-08-2023 Comprehensive metabolic 2000 panel - Serum or Plasma Comprehensive Metabolic Panel Lab Routine Stage 3a chronic kidney disease (CMS/HCC) Anemia in other chronic diseases classified elsewhere Expected: 04/09/2023 (Approximate), Expires: 10/08/2023 [facility] Work Phone: Comment on above: Expected: 04/09/2023 (Approximate), Expires: 10/08/2023 Start: 04-09-2023 End: 10-08-2023 Ferritin [Mass/volume] in Serum or Plasma Ferritin Lab Routine Anemia in other chronic diseases classified elsewhere Expected: 04/09/2023 (Approximate), Expires: 10/08/2023 [facility] Work Phone: Comment on above: Expected: 04/09/2023 (Approximate), Expires: 10/08/2023 Start: 04-09-2023 End: 10-08-2023 Iron and Iron binding capacity panel - Serum or Plasma Iron and TIBC Lab Routine Anemia in other chronic diseases classified elsewhere Expected: 04/09/2023 (Approximate), Expires: 10/08/2023 [facility] Work Phone: Comment on above: Expected: 04/09/2023 (Approximate), Expires: 10/08/2023 Start: 04-09-2023 End: 04-09-2023 Patient encounter procedure 04/09/2023 1:30 PM EST Office Visit [facility] [address] [place] [address] Christ Gardiner DO [address] [facility] [address] [place] [address] [facility] Start: 03-18-2023 FUV, Provider: Apple Beth, Status: Pen, Time: 1:00 PM FUV, Provider: Apple Beth, Status: Pen, Time: 1:00 PM [id number] na [address] [place] Work Phone: Start: 03-12-2023 ECHO, Provider: MEDI NA HHVI,MG CARD, Status: Pen, Time: 1:00 PM ECHO, Provider: STANFORD HHVI,MG CARD, Status: Pen, Time: 1:00 PM [id number]-Hlkw na [address] [place] Work Phone: Start: 03-12-2023 Echocardiography Echocardiogram [facility] Start: 12-02-2022 Acid Fast Bacilli Culture Acid Fast Bacilli Culture [facility] Start: 12-02-2022 Acid Fast Bacilli Smear Acid F ast Bacilli Smear [facility] Start: 11-28-2022 Acid Fast Bacilli Culture Acid Fast Bacilli Culture [facility] Start: 11-28-2022 Acid Fast Bacilli Smear Acid F ast Bacilli Smear [facility] Start: 11-06-2022 Oxygen therapy [facility] Start: 11-06-2022 [facility] Start: 11-06-2022 Bacteria identified in Urine by Culture Urine Culture [facility] Start: 11-06-2022 [facility] Start: 11-02-2022 Patient discharge [facility] Start: 11-01-2022 Brain without Contrast Brain without Contrast [facility] Start: 11-01-2022 MR Brain WO contrast [facility] Start: 10-31-2022 Care planning and pr oblem solving actions [facility] Start: 10-31-2022 Brain/Head without Contrast Brain/Head without Contrast [facility] Start: 10-31-2022 CT Unspecified body region WO [facility] Start: 10-30-2022 Bleeding precautions [facility] Start: 10-30-2022 Bedrest [facility] Start: 10-30-2022 Oxygen therapy [facility] Start: 10-30-2022 End: 10-30-2022 [facility] Start: 10-30-2022 Application of intermittent pneumatic compression device [facility] Start: 10-30-2022 Assessment of risk o f venous thromboembolism [facility] Start: 10-30-2022 Continuous pulse oximetry [facility] Start: 10-30-2022 Fall prevention [facility] Start: 10-30-2022 Insertion of cathete r into peripheral vein [facility] Start: 10-30-2022 Maintenance therapy [facility] Start: 10-30-2022 Patient referral to dietitian [facility] Start: 10-30-2022 Providing care accor ding to standard [facility] Start: 10-30-2022 Referral to occupati onal therapist [facility] Start: 10-30-2022 End: 10-30-2022 Referral to service [facility] Start: 10-30-2022 Speech therapy assessment [facility] Start: 10-30-2022 Vital signs measurements [facility] Start: 10-30-2022 Verification routine [facility] Start: 10-30-2022 Admission procedure [facility] Start: 10-30-2022 Following clinical pathway protocol [facility] Start: 10-30-2022 Bleeding precautions [facility] Start: 10-30-2022 Consultation [facility] Start: 10-30-2022 Oxygen therapy [facility] Start: 10-30-2022 Plain chest X-ray Chest 1 View [facility] Start: 10-30-2022 [facility] Start: 10-16-2022 Creatinine measurement Creatinine Le tiffany [facility] Start: 10-16-2022 Potassium measurement Potassium Leve l [facility] Start: 10-16-2022 End: 10-16-2022 Patient encounter procedure 10/16/2022 1:00 PM EDT Office Visit [facility] [address] [place] [address] Christ Gardiner DO [address] [place], [place] [id number] [facility] Start: 10-10-2022 Influenza vaccination Influenza Vacc ine (#1) [facility] Start: 09-11-2022 FUV, Provider: Apple Beth, Status: Pen, Time: 1:00 PM FUV, Provider: Apple Beth, Status: Pen, Time: 1:00 PM US-Oidljhojry-Buyi lawn [address] [place] Work Phone: Start: 09-08-2022 FUV, Provider: Apple Beth, Status: Pen, Time: 11:30 AM FUV, Provider: Apple Beth, Status: Pen, Time: 11:30 AM TK-Tqsdmpfuyt-Njgg a Work Phone: Start: 06-30-2022 End: 06-20-2023 XR Chest 2 Views XR chest 2 views Imaging Routine Pneumonia of right lower lobe due to infectious organism Expected: 06/30/2022 (Approximate), Expires: 06/20/2023 [facility] Service Area Work Phone: Comment on above: Expected: 06/30/2022 (Approximate), Expires: 06/20/2023 Start: 06-19-2022 End: 06-19-2022 Patient encounter procedure 06/19/2022 10:40 AM EDT [facility] [address] [place] [address] Christ Gardiner DO [address] [facility], [address] [place], [place] [id number] [facility] Start: 06-10-2022 End: 06-10-2022 Patient encounter procedure 06/10/2022 1:30 PM EDT Office Visit [facility] [address] [place] [phone] Christ Gardiner DO [address] [facility], [address] [place] [address] [facility] Start: 04-15-2022 Patient encounter procedure MCRANNUAL, Provider: Christ Gardiner, Status: Pen, Time: 2:00 PM [facility] Work Phone: Start: 04-15-2022 End: 04-16-2023 Basic metabolic 2000 panel - Serum or Plasma Basic Metabolic Panel Lab Routine Benign essential hypertension Coronary artery disease without angina pectoris, unspecified vessel or lesion type, unspecified whether nooksack or transplanted heart Expected: 04/15/2022 (Approximate), Expires: 04/16/2023 [facility] Work Phone: Comment on above: Expected: 04/15/2022 (Approximate), Expires: 04/16/2023 Start: 04-15-2022 End: 04-16-2023 CBC panel - Blood by Automated count CBC Lab Routine Benign essential hypertension Coronary artery disease without angina pectoris, unspecified vessel or lesion type, unspecified whether nooksack or transplanted heart Expected: 04/15/2022 (Approximate), Expires: 04/16/2023 [facility] Work Phone: Comment on above: Expected: 04/15/2022 (Approximate), Expires: 04/16/2023 Start: 04-15-2022 End: 04-16-2023 DXA Skeletal system Views for bone density XR DEXA bone density Imaging Routine Screening for osteoporosis Postmenopausal estrogen deficiency Expected: 04/15/2022, Expires: 04/16/2023 [facility] Service Area Work Phone: Comment on above: Expected: 04/15/2022 , Expires: 04/16/2023 Start: 04-15-2022 End: 04-16-2023 Lipid 1996 panel - Serum or Plasma Lipid Panel Lab Routine Coronary artery disease without angina pectoris, unspecified vessel or lesion type, unspecified whether nooksack or transplanted heart Expected: 04/15/2022 (Approximate), Expires: 04/16/2023 [facility] Work Phone: Comment on above: Expected: 04/15/2022 (Approximate), Expires: 04/16/2023 Start: 04-15-2022 End: 04-16-2023 Magnesium [Mass/volume] in Serum or Plasma Magnesium Lab Routine Benign essential hypertension Expected: 04/15/2022 (Approximate), Expires: 04/16/2023 [facility] Work Phone: Comment on above: Expected: 04/15/2022 (Approximate), Expires: 04/16/2023 Start: 03-22-2022 COVID-19 Vaccine (6 - Moderna series) COVID-19 Vaccine (6 - Moderna series) [facility] Start: 03-12-2022 CAROTID, Provider: [facility], Status: Pen, Time: 2:00 PM CAROTID, Provider: [facility], Status: Pen, Time: 2:00 PM KT-Gsqdzdpias-Lusg na 140 [place] Work Phone: Start: 03-12-2022 ECHO, Provider: [facility], Status: Pen, Time: 1:00 PM ECHO, Provider: [place] [facility], Status: Pen, Time: 1:00 PM ZJ-Grcysusgoo-Pyma na 140 [place] Work Phone: Start: 03-12-2022 FUV, Provider: Apple Beth, Status: Pen, Time: 11:30 AM FUV, Provider: Apple Beth, Status: Pen, Time: 11:30 AM [facility] Work Phone: Start: 03-12-2022 CAROTID, Provider: [facility], Status: Pen, Time: 10:00 AM CAROTID, Provider: [facility], Status: Pen, Time: 10:00 AM [facility] Work Phone: Start: 03-12-2022 ECHO, Provider: [facility], Status: Pen, Time: 9:00 AM ECHO, Provider: [place] [facility], Status: Pen, Time: 9:00 AM [facility] Work Phone: Start: 10-21-2021 FUV, Provider: Christ Gardiner, Status: Pen, Time: 2:00 PM FUV, Provider: Christ Gardiner, Status: Pen, Time: 2:00 PM [facility] Work Phone: Start: 08-14-2021 EPV, Provider: Apple Beth, Status: Pen, Time: 1:00 PM EPV, Provider: Apple Beth, Status: Pen, Time: 1:00 PM NS-Hkqmkpqdlz-Eeau a Work Phone: Start: 06-21-2021 Diabetes mellitus screening Diabetes Screening [facility] Start: 04-11-2021 Patient encounter procedure ZD-Ufjwvadiwz-Gbyb na Work Phone: Start: 04-05-2021 FUV, Provider: Apple Beth, Status: Pen, Time: 11:30 AM FUV, Provider: Apple Beth, Status: Pen, Time: 11:30 AM ND-Fwtxqlkbrr-Zuqe na Work Phone: Start: 04-04-2021 ECHO, Provider: [facility], Status: Pen, Time: 1:00 PM ECHO, Provider: [place], Status: Pen, Time: 1:00 PM [facility] Work Phone: Start: 03-18-2021 Patient encounter procedure MCRANNUAL, Provider: Christ Gardiner, Status: Pen, Time: 10:40 AM [facility] Work Phone: Start: 03-08-2021 FUV, Provider: Apple Beth, Status: Pen, Time: 2:30 PM FUV, Provider: Apple Beth, Status: Pen, Time: 2:30 PM [facility] Work Phone: Start: 02-25-2021 EPV, Provider: Apple Beth, Status: Pen, Time: 1:30 PM EPV, Provider: Apple Beth, Status: Pen, Time: 1:30 PM [facility] Work Phone: Start: 12-25-2020 FUV, Provider: Christ Gardiner, Status: Pen, Time: 1:50 PM FUV, Provider: Christ Gardiner, Status: Pen, Time: 1:50 PM [facility] Work Phone: Start: 10-29-2020 FUVHOSP, Provider: Christ Chamberlain, Status: Pen, Time: 7:50 AM FUVHOSP, Provider: Christ Gardiner, Status: Pen, Time: 7:50 AM [facility] Work Phone: Start: 09-10-2020 FUV, Provider: Christ Gardiner, Status: Pen, Time: 10:00 AM FUV, Provider: Christ Gardiner, Status: Pen, Time: 10:00 AM [facility] Work Phone: Start: 03-07-2020 Screening for osteoporosis Bone Density Scan [facility] Start: 12-01-2018 Culture bacterial quanttative colony count urine Cult, Urine [facility] Work Phone: Start: 07-21-2018 Zoster Vaccines (2 of 2) Zoste r Vaccines (2 of 2) [facility] Start: 08-04-2013 DTaP/Tdap/Td Vaccine s (2 - Td or Tdap) DTaP/Tdap/Td Vaccines (2 - Td or Tdap) [facility] Start: 1986 Zoster Vaccines (1 of 2) Zoste r Vaccines (1 of 2) [facility] Start: 1948 Depression Screening Depression Scre ening [facility] Start: 1935 Medicare Annual Well ness (AWV) Medicare Annual Wellness (AWV) [facility] Start: 1935 Screening for osteoporosis Bone Density Scan [facility] Start: 1935 Thyroid stimulating hormone measurement TSH Level [facility] Acid fast bacilli culture [facility] Acid fast bacilli culture [facility] Acid fast bacilli culture [facility] End: 10-10-2022 Bacteria identified in Lower respiratory specimen by Aerobe culture Respiratory culture and Stain Microbiology Routine Once (Lab) for 1 Occurrences starting 10/10/2022 until 10/10/2022 [facility] Work Phone: Comment on above: Once (Lab) for 1 Occ urrences starting 10/10/2022 until 10/10/2022 Basic metabolic 1998 panel - Serum or Plasma Basic Metabolic Panel [facility] Work Phone: Comment on above: Approx [id number] Bilirubin measuremen t, urine [facility] Hematocrit [Volume Fraction] of Blood [facility] Hemoglobin [Mass/vol ume] in Blood [facility] Hemoglobin [Presence ] in Urine [facility] Measurement of keton es in urine using dipstick [facility] Microscopic urinalysis [facility] Mycobacterium sp identified in Unspecified specimen by Organism specific culture [facility] Mycobacterium sp identified in Unspecified specimen by Organism specific culture [facility] Mycobacterium sp identified in Unspecified specimen by Organism specific culture [facility] Patient Education ED Confusion [facility] Work Phone: Patient referral [facility] Work Phone: pH of Urine [facility] Specific gravity of Urine [facility] Urine blood test [facility] Urine dipstick for glucose [facility] Urine dipstick for leukocyte esterase [facility] Urine dipstick for nitrite [facility] Urine dipstick for protein [facility] Urine examination [facility] Urine microscopy: epithelial cells [facility] Urine Microscopy: wh ite cells [facility] Urobilinogen [Presen ce] in Urine [facility] Work Phone: NEGATED: Highlighted row has been ruled out! Planned Goals not documented [facility] Work Phone: Immunizations Immunization Date Immunization Notes Care Provider [facility] 01-25-2022 Moderna COVID-19 Biv al Booster 50 MCG/0.5ML Intramuscular Suspension Christ Gardiner Work Phone: OJ-Mthnqvfdyf-Zkntm awn [address] [place] Work Phone: 11-23-2021 Fluzone High-Dose Quadrivalent 0.7 ML Intramuscular Suspension Prefilled Syringe Christ Gardiner Work Phone: QZ-Gbuydxhtaf-Fidls awn [address] [place] Work Phone: 11-23-2021 influenza virus vaccine, unspecified formulation Christ Gardiner DO Work Phone: [facility] Work Phone: 05-31-2021 Moderna COVID-19 Vaccine 100 MCG/0.5ML Intramuscular Suspension Christ Gardiner Work Phone: [facility] 12-25-2020 Fluzone High-Dose Quadrivalent 0.7 ML Intramuscular Suspension Prefilled Syringe; Translations: [Fluzone High-Dose Quadrivalent 0.7 ML Intramuscular Suspension Prefilled Syringe] Christ Gardiner Work Phone: [facility] Work Phone: Comment on above: Series: 11-16-2021 influenza, seasonal, injectable Christ Baronnell DO Work Phone: [facility] Work Phone: 12-16-2020 Moderna COVID-19 Vaccine 100 MCG/0.5ML Intramuscular Suspension Christ Gardiner Work Phone: [facility] 07-30-2020 Moderna SARS-CoV-2 Vaccination Christ Rashad Maralnell DO Work Phone: [facility] Work Phone: 04-25-2020 Moderna COVID-19 Vaccine 100 MCG/0.5ML Intramuscular Suspension Christ Asa Solorzano Maralnell Work Phone: [facility] Work Phone: 2020 Moderna COVID-19 Vaccine 100 MCG/0.5ML Intramuscular Suspension Christ Solorzano Maralnell Work Phone: [facility] 10-27-2019 Fluzone High-Dose Quadrivalent 0.7 ML Intramuscular Suspension Prefilled Syringe Christ Gardiner Work Phone: [facility] Work Phone: 10-11-2019 influenza, high dose seasonal, preservative-free Christ Gardiner [facility] Work Phone: Comment on above: Series: 11-30-2018 influenza, high dose seasonal, preservative-free; Translations: [Fluzone High-Dose 0.5 ML Intramuscular Suspension Prefilled Syringe] Costa Nieto [facility] Work Phone: Comment on above: Series: 05-26-2018 zoster vaccine recombinant; Translations: [Shingrix 50 MCG/0.5ML Intramuscular Suspension Reconstituted] Benjy Garnett [facility] Work Phone: 11-06-2017 influenza, injectabl e, quadrivalent, contains preservative Benjy Garnett [facility] Work Phone: Comment on above: Series: 10-12-2017 influenza, high dose seasonal, preservative-free; Translations: [Influenza, high dose seasonal, preservative-free] [facility] Comment on above: Series: 10-12-2017 pneumococcal conjuga te vaccine, 13 valent; Translations: [Prevnar 13 Intramuscular Suspension] [facility] Comment on above: Series: 10-01-2016 influenza, injectabl e, quadrivalent, contains preservative; Translations: [Flulaval Quadrivalent Intramuscular Suspension] Yuyaa CabralHugo [facility] Work Phone: Comment on above: Series: 11-06-2015 influenza, high dose seasonal, preservative-free Christ Gardiner Work Phone: [facility] Work Phone: 10-11-2015 influenza virus vaccine, unspecified formulation Christ Gardiner Work Phone: [facility] Work Phone: Comment on above: Series: 10-11-2015 influenza, seasonal, injectable [facility] Cabral[facility] Work Phone: 11-16-2014 influenza, seasonal, injectable [facility] CabralHugo [facility] Work Phone: Comment on above: Series: 11-08-2013 influenza, seasonal, injectable [facility] CabralHugo [facility] Work Phone: Comment on above: Series: 07-07-2013 tetanus toxoid, redu florian diphtheria toxoid, and acellular pertussis vaccine, adsorbed [facility] Work Phone: Comment on above: Series: 10-12-2012 influenza, seasonal, injectable Christ Solorzano Nostran Work Phone: [facility] Work Phone: Comment on above: Series: 10-12-2012 influenza, seasonal, injectable Benjy Garnett [facility] Work Phone: 10-24-2011 influenza, seasonal, injectable [facility] Hugo [facility] Work Phone: Comment on above: Series: 11-14-2008 influenza virus vaccine, unspecified formulation Christ Asa Van Nostran Work Phone: [facility] Work Phone: Comment on above: Series: 11-14-2008 pneumococcal polysaccharide vaccine, 23 valent Christ Bray Van Nostran Work Phone: [facility] Work Phone: Comment on above: Series: 11-14-2008 influenza, seasonal, injectable [facility] Hugo [facility] Work Phone: 11-14-2008 pneumococcal polysaccharide [facility], [facility] Work Phone: Payers Date Payer Category Payer Unknown [id number] 2023 Medicare [id number] 2023 Self-pay 2023 Unknown [id number] 2008 Unknown 2008 Unknown [id number] 2002 Medicare [id number] 2001 Medicare [id number] 2001 Medicare [id number] 1936 Unknown [id number] 2.. 840.1.700572.3.579.2.356 1936 Unknown [id number] .16. 840.1.725397.3.579.2.356 1936 Unknown [id number] 2.16. 840.1.939359.3.579.2.356 1936 Unknown [id number] 2.16. 840.1.831906.3.579.2.356 1936 Unknown [id number] 2.16. 840.1.083092.3.579.2.356 1936 Unknown [id number] 2.16. 840.1.252645.3.579.2.356 1936 Unknown [id number] 2.16. 840.1.108668.3.579.2.356 1936 Unknown [id number] 2.16. 840.1.830165.3.579.2.356 1936 Unknown [id number] 2.16. 840.1.822129.3.579.2.356 1936 Unknown [id number] 2.16. 840.1.545713.3.579.2.356 1936 Unknown [id number] 2.16. 840.1.015111.3.579.2.356 1936 Unknown [id number] 2.16. 840.1.011885.3.579.2.356 1936 Unknown [id number] 2.16. 840.1.641415.3.579.2.356 1936 Unknown [id number] 2.16. 840.1.085393.3.579.2.356 1936 Unknown [id number] 2.16.840 .1.213832.3.579.2.1245 1936 Unknown [id number] 2.16.8 40.1.178595.3.579.2.1046 1936 Unknown [id number] 2.16. 840.1.473482.3.579.2.356 1936 Unknown [id number] 2.16. 840.1.534187.3.579.2.356 1936 Unknown [id number] 2.16. 840.1.987388.3.579.2.356 1936 Unknown [id number] 2.16. 840.1.797534.3.579.2.356 1936 Unknown [id number] 2.16. 840.1.142753.3.579.2.356 1936 Unknown [id number] 2.16. 840.1.844310.3.579.2.356 1936 Unknown [id number] 2.16. 840.1.453182.3.579.2.356 1936 Unknown [id number] 2.16.8 40.1.255794.3.579.2.1244 1936 Unknown [id number] 2.16.84 0.1.553134.3.579.2.1244 1936 Unknown [id number] 2.16.84 0.1.905313.3.579.2.1244 1936 Unknown [id number] 2.16.84 0.1.784472.3.579.2.1244 1936 Unknown [id number] 2.16.840 .1.472957.3.579.2.1244 Unknown [id number] 2.16.8 40.1.934379.3.579.2.243 Unknown [id number] Unknown [id number] 2.16.8 40.1.574531.3.579.2.462 Unknown [id number] 2.16.8 40.1.681540.3.579.2.462 Unknown [id number] 2.16.8 40.1.643658.3.579.2.462 Unknown [id number] 2.16.8 40.1.288773.3.579.2.462 Unknown [id number] 2.16.8 40.1.498069.3.579.2.462 Unknown [id number] 2.16.8 40.1.310646.3.579.2.462 Unknown [id number] 2.16.8 40.1.123762.3.579.2.462 Unknown [id number] 2.16.8 40.1.324771.3.579.2.462 Unknown [id number] 2.16.8 40.1.794020.3.579.2.462 Unknown [id number] 2.16.8 40.1.692094.3.579.2.462 Unknown [id number] 2.16.8 40.1.054062.3.579.2.462 Unknown [id number] 2.16.8 40.1.918635.3.579.2.462 Unknown [id number] 2.16.8 40.1.393049.3.579.2.462 Unknown [id number] 2.16.8 40.1.823527.3.579.2.462 Unknown [id number] 2.16.8 40.1.654905.3.579.2.462 Unknown [id number] 2.16.8 40.1.146874.3.579.2.462 Unknown [id number] 2.16.8 40.1.948470.3.579.2.462 Unknown [id number] 2.16.8 40.1.712169.3.579.2.462 Unknown [id number] 2.16.8 40.1.275008.3.579.2.462 Social History Date Type Detail Facility - Never smoker -[facility] Work Phone: Start: 04-15-2022 End: 05-30-2022 Caffeine Use Caffeine Use [facility] Start: 04-15-2022 End: 07-25-2024 Tobacco smoking status NHIS Never smoked tobacco [facility] Work Phone: Start: 04-15-2022 Tobacco use and exposure Smoke less tobacco non-user [facility] Work Phone: Start: 04-15-2022 End: 05-30-2022 Alcohol intake Ex-drinker (finding) [facility] Work Phone: Start: 04-15-2022 End: 05-30-2022 Tobacco use panel [facility] Start: 1935 Sex Assigned At Not on file [facility] Work Phone: Start: 04-05-2022 End: 10-10-2022 Exposure to SARS-CoV-2 (event) Not sure [facility] Start: 10-14-2022 Alcohol intake Lifetime non-drinker (finding) [facility] In the past 12 month s, has lack of transportation kept you from medical appointments or from getting medications? No [facility] In the past 12 month s, was there a time when you were not able to pay the mortgage or rent on time? No [facility] Start: 10-30-2022 End: 11-06-2022 Tobacco smoking status NHIS Unknown if ever smoked [facility] Start: 1935 Sex Assigned At Female W [facility] Start: 11-02-2022 Non-smoker [facility] Start: 05-12-2024 Sex Female (finding) [facility] Start: 07-25-2024 Tobacco smoking stat us NHIS Ex-smoker (finding) [facility] NEGATED: Highlighted rowStart: NINF History of tobacco use Passive smoker [facility] Work Phone: NEGATED: Highlighted row Not [facility] Medical Equipment Procedure Code Equipment Code Equipment Original Text Equipment Identifier Dates Insertion, intramedullary kaleb, femur, using titanium trochanteric fixation nail syste Locking screw for IM nail [id number] FDA Start: 07-26-2024 Insertion, intramedullary kaleb, femur, using titanium trochanteric fixation nail syste Femur nail, sterile [id number] FDA Start: 07-26-2024 Insertion, intramedullary kaleb, femur, using titanium trochanteric fixation nail syste ([id number]) Spiral blade ()[id number] FDA Start: 07-26-2024 Goals Date Patient Goal Desired Activity /State Functional Status Date Assessment Result Facility 07-28-2024 Functional status Chair [facility] Work Phone: 11-02-2022 Functional status Bedrest [facility] Work Phone: NEGATED: Highlighted row Functional performance Functional status health issues are not documented Disease [facility] Work Phone: Mental Status Date Assessment Result Facility 07-28-2024 Cognitive function Voice/Name [facility] Work Phone: 11-06-2022 Cognitive function Appropriate;C ooperati ve [facility] Work Phone: 11-02-2022 Cognitive function Voice/Name [facility] Work Phone: 10-30-2022 Cognitive function Voice/Name [facility] Work Phone: NEGATED: Highlighted row Cognitive function [Interpretation] Cognitive status health issues are not documented Disease [facility] Work Phone: Clinical Notes 06-09-2013 to 07-28-2024 Note Date & Type Note Facility 07-28-2024 Progress note [facility] 07-28-2024 Discharge summary Note Date/Time July 28, 2024 11:30am [facility] Medical Records Department [address] [place] [address] Discharge Summary 07/28/24 1128 MR#: [id number] Acct: [id number] Name: KATHERINE JUDGE Rep #:[id number] : 1935 89 From: Neymar Herrera PCP: Dr. Kam Ocampo Sr., DO Status:A DM IN Location: [facility] AV712-3 Providers Date of Admission: 07/25/24 Date of Discharge: 07/28/24 Primary Care Physician: Dr. Kam Ocampo Sr., DO Consultations 07/25/24 18:26 Consult: Orthopedics Routine Consulting Provider: Thanh Mclaughlin Reason for Consult: right hip fracture EMERGENT Consult: No MD Notified: Yes Date Notified: 07/25/24 Time Notified: 17:00 Method of Notification: ED Physician Initiated Reason For Visit: FALL WITH HIP FRACTURE Diagnosis Discharge Diagnosis (1) Closed intertrochanteric fracture of right hip: Status: Acute Code(s): S72.141A - Displaced intertrochanteric fracture of right femur, initial encounter for closed fracture Qualifiers: Encounter type: initial encounter Fracture alignment: displaced Qualified Code(s): S72.141A - Displaced intertrochanteric fracture of right femur, initial encounter for closed fracture (2) Acute on chronic heart failure with preserved ejection fraction (HFpEF): Status: Acute Code(s): I50.33 - Acute on chronic diastolic (congestive) heart failure Plan Patient is an 89-year-old female who presented to [facility] ED on 07/25/2024 with right hip pain after a mechanical fall. 1. Acute debility due to right hip nondisplaced intertrochanteric fracture: [facility] Hip and pelvis x-rays reviewed and agrees with nondisplaced fracture as mentioned.. Orthopedic surgeon Dr. Munroe. Patient is going for surgery today. PT and OT consulted. Perioperative evaluation was done, NSQIP at above average risk, mention in detail below. Pain management. 07/27: Patient has cephalomedullary fixation of right hip with implant. Patient is doing well. Continue PT and OT and pain control. On Eliquis 2.5 mg twice daily for DVT prophylaxis.Will require SNF 07/28: Patient is doing well. Orthopedic surgery follow-up reviewed. Okay for discharge from orthopedic point of view. Follow-up in 2 weeks for george removal and wound check. 2. Mild acute on chronic HFpEF with hypoxia, history of CAD with stenting, hypertension, hyperlipidemia, history of CVA ? Last echo in 10/2022 showed EF 70%, LA enlargement but no diastolic dysfunction, no valvular issues. Chest x-ray on admit with cardiomegaly with vascular congestion and atelectasis at lung bases. Patient on home oxygen as needed in detention but required 4 L at time of admission. She was tapered off oxygen in the morning but changed to 2 L. Echo shows EF 70% with stage I diastolic dysfunction, mild to moderate, anteriorly directed MR, moderate pulmonary hypertension, RVSP 65 mmHg. Moderate TR. In the morning today, patient BP was lower side and looks euvolemic. Patient had 2 doses of 40 mg IV furosemide yesterday. Hold Lasix today and might consider after surgery depending upon the fluid status. 07/27: Blood pressure has improved. Today on furosemide 20 mg daily, increased to 40 mg oral tomorrow a.m. Continue monitor. 07/28: Patient did not had bowel movement yesterday but had on 07/26. Senna S2 tablet twice daily, MiraLAX 17 g p.o. twice daily and Dulcolax suppository ordered. She has history of 3 bowel obstructions which required surgery due to adhesions from previous hysterectomy. No chest pain or shortness of breath. Continue the above regimen. 3. Acute anemia due to blood loss: Patient baseline hemoglobin about 10.5 g% dropped to 7.3 after surgery. Anemia workup including reticulocyte panel and ferritin ordered. Iron infusion ordered. 07/27: Serum iron saturation normal 22%, iron low, TIBC low. B12 normal. Reticulocyte panel shows reactive bone marrow with high reticulocyte count 2.42%and immature reticulocyte fraction 16.8%. Prescription for ferrous sulfate and vitamin C advised. Follow-up CBC and BMP in 1 week in detention. Preoperative evaluation ? NSQIP score: Patient is at above average risk of any complication answers complication given age, partially dependent functional status, CHF and hypertension. ? Labs/imaging: Hemoglobin and kidney function stable at baseline. No further labs or imaging required preoperatively. Follow-up CBC and BMP postoperatively. ? Cardiac workup: Mild HFpEF exacerbation as noted above. Repeat echocardiogram, BNP and troponins ordered. ? Medications: Okay to continue Lopressor, doxazosin, Lasix and Imdur. Holding Plavix for procedure, will defer to orthopedics on timing of restarting. ? Prior procedural complications: None. ? Recommendation: Recommend holding on procedure until cardiac workup as above has resulted and patient has been optimized from a volume status standpoint. Will keep patient n.p.o. at midnight in case procedure can be done tomorrow afternoon. Resume beta-simon after surgery when oral is allowed. 4. Acute on chronic debility, history of bilateral knee replacements ? PT/OT/case management consulted as above. Lives in [facility], will likely be okay to return there on discharge. 5. Mild chronic anemia ? Hemoglobin stable at baseline 10-11 on admission. 6. Anxiety/depression ? Stable. Continue home bupropion and mirtazapine. 7. GERD ? Continue home PPI. DVT prophylaxis: SCDs CODE STATUS: DNR CCA, DNI Clinical Impression(s) from Imaging Studies Hip/Pelvis X-Ray 07/25/24 15:10 IMPRESSION: Nondisplaced right intertrochanteric fracture of the proximal right femur. Reading Location: [facility] Chest X-Ray 07/25/24 15:15 IMPRESSION: Cardiomegaly and vascular congestion with atelectasis at the lung bases. Reading Location: [facility] Femur X-Ray 07/25/24 17:40 IMPRESSION: Nondisplaced intertrochanteric fracture. Reading Location: [id number] Echocardiogram 07/25/24 22:20 Interpretation Summary Hypermobile atrial septum. Normal LV size. Left ventricular systolic function is normal. The left ventricular ejection fraction is 70 %. Stage 1 diastolic dysfunction. Mild-Moderate (1-2+) anteriorly directed mitral valve insufficiency. Posterior leaflet mitral valve prolapse. Moderate pulmonary hypertension. Medications at Discharge Home Medications atorvastatin 40 mg tablet 40 mg PO DAILY hyperlipidemia 07/25/24 azelastine 137 mcg (0.1 %) nasal spray intranasal allergies 07/25/24 budesonide 0.5 mg/2 mL suspension for nebulization mg surgical endoscopist 07/25/24 bupropion HCl 150 mg 24 hr tablet, extended release 150 mg PO DAILY . 07/25/24 cetirizine 5 mg tablet 5 mg PO DAILY . 07/25/24 clopidogrel 75 mg tablet 75 mg PO DAILY . 07/25/24 Held on 07/28/24. Instructions: Hold while taking Eliquis for 1 month. dicyclomine 10 mg capsule 10 mg PO TID . 07/25/24 doxazosin 2 mg tablet 2 mg PO DAILY . 07/25/24 gabapentin 100 mg capsule PO . 07/25/24 ipratropium 0.5 mg-albuterol 3 mg (2.5 mg base)/3 mL nebulization soln ml . 07/25/24 isosorbide mononitrate 30 mg tablet,extended release 24 hr 30 mg PO DAILY . 07/25/24 metoprolol tartrate 25 mg tablet 25 mg PO BID . 07/25/24 mirtazapine 30 mg tablet 30 mg PO QHS . 07/25/24 montelukast 10 mg tablet 10 mg PO DAILY . 07/25/24 multivitamin with folic acid 400 mcg tablet (Daily-Carmelo (with folic acid)) 1 tabPO DAILY . 07/25/24 pantoprazole 40 mg tablet,delayed release 40 mg PO DAILY . 07/25/24 potassium chloride 20 mEq tablet,extended release(part/cryst) 20 meq PO DAILY . 07/25/24 acetaminophen 500 mg tablet 1,000 mg (2 x 500 mg) PO Q8 #0 tabs 07/28/24 apixaban 5 mg tablet (Eliquis) 2.5 mg (1/2 x 5 mg) PO BID #0 tabs 07/28/24 ascorbic acid (vitamin C) 500 mg tablet 500 mg PO BID #60 tabs 07/28/24 calcium carbonate 500 mg (2.5 x 200 mg calcium (500 mg)) PO TIDCM #0 tabs 07/28/24 cholecalciferol (vitamin D3) 125 mcg (5,000 unit) capsule 125 mcg PO DAILY #0 caps 07/28/24 ferrous sulfate 325 mg (65 mg iron) tablet (FeroSul) 325 mg PO DAILY 30 days #30tabs 07/28/24 furosemide 40 mg tablet 40 mg PO DAILY #0 tabs 07/28/24 polyethylene glycol 3350 17 gram/dose oral powder (Miralax) 17 g PO BID 1 month #1,020 grams 07/28/24 sennosides 8.6 mg-docusate sodium 50 mg tablet (Stimulant Laxative Plus) 2 tab PO BID #0 tabs 07/28/24 Physical Exam Narrative Please see exam finding on the progress note Weight / BMI Weight Weight: 107 lb Body Mass Index (BMI) 20.9 ABG / Lab / Microbiology Data 07/28/24 06:55 07/28/24 06:55 Laboratory: Laboratory Results - last 24 hr 07/28/24 06:55: WBC 8.1, RBC 2.24 L, Hgb 7.3 L, Hct 22.1 L, MCV 98.7, MCH 32.6 H, MCHC 33.0, RDW Std Deviation 50.4 H, RDW Coeff of Tamera 14.1, Plt Count 135 L, MPV 9.4, Immature Gran % (Auto) 0.100, Neut % (Auto) 65.7, Lymph % (Auto) 25.1, [place] % (Auto) 5.8, Eos % (Auto) 2.9, Baso % (Auto) 0.4, Absolute Neuts (auto) 5.3, Absolute Lymphs (auto) 2.02, Nucleated RBC % 0, Retic Count 2.42 H, Immature Retic Fraction 16.80 H, Retic Hgb Equivalent 34.0, Sodium 137, Potassium4.2, Chloride 101, Carbon Dioxide 29.4, Anion Gap 7, BUN 17, Creatinine 0.88, Estim Creat Clear Calc 31.74 L, Est GFR (MDRD) Non-Af 63, BUN/Creatinine Ratio 19.7, Glucose 98, Calcium 8.8, Iron 38 L, Iron Saturation 22.0, Unsaturated IBC 137 L, Ferritin 176, Vitamin B12 867 D/C Instructions DC O2, CPAP, BIPAP Needs Home O2 Discharge instructions: Yes Type of respiratory needs?: Oxygen Oxygen frequency: Continuous Continuous oxygen liters per minute: 2 DC home with Oxygen: Yes Home O2 MD Review: I have reviewed the oxygen testing, and the patient qualifies for home oxygen equipment and portability. The patient is mobile in the home and the community. Meaningful Use Info Meaningful Use Meaningful Use Diagnoses (Choose all that apply): None applicable Ischemic Stroke Statin Dosing Therapy Reference: STATIN DOSE THERAPY REFERENCE: * Patients > 75 years receive moderate or high dose statin therapy. * Patients 75 years or YOUNGER should receive HIGH intensity statin dose unless contraindicated. You will be required to document reason for non-treatment if statin daily dose does not meet guidelines. HIGH DOSE STATIN THERAPY DAILY Atorvastatin > than or = to 40 mg Rosuvastatin > than or = to 20 mg Amlodipine + Atorvastatin > than or = to 2.5/40 mg Ezetimibe + Simvastatin 10/80 mg Simvastatin 80mg Discharge Plan Admission Admit Date/Time: 07/25/24 16:51 Primary Reason for Your Visit: Right hip fracture Attending Provider: Neymar Cunningham Primary Care Provider: Terrence Addison,Kam Consulting Providers: Thanh Mclaughlin; Hayden Diaz Discharge Orders/Prescriptions Prescriptions: New acetaminophen 500 mg Tablet 1,000 mg PO Q8 Qty: 0 0RF Rx Instructions: 1 g every 8 hourly for 1 week and then 1 g every 8 hourly as needed for severe pain Eliquis 5 mg Tablet 2.5 mg PO BID Qty: 0 0RF Rx Instructions: For total 30 days calcium carbonate 200 mg calcium (500 mg) Tablet,Chewable 500 mg PO TIDCM Qty: 0 0RF cholecalciferol (vitamin D3) 125 mcg (5,000 unit) capsule 125 mcg PO DAILY Qty: 0 0RF furosemide 40 mg Tablet 40 mg PO DAILY Qty: 0 0RF Rx Instructions: 40 mg daily for 5 days and then 20 mg daily sennosides-docusate sodium [Stimulant Laxative Plus] 8.6-50 mg Tablet 2 tab PO BID Qty: 0 0RF polyethylene glycol 3350 [Miralax] 17 gram/dose powder 17 g PO BID 30 Days Qty: 1020 0RF Rx Instructions: Twice daily for 3 days and then once daily ferrous sulfate [FeroSul] 325 mg (65 mg iron) tablet 325 mg PO DAILY 30 Days Qty: 30 2RF ascorbic acid (vitamin C) 500 mg tablet 500 mg PO BID Qty: 60 2RF Continued atorvastatin 40 mg tablet 40 mg PO DAILY bupropion HCl 150 mg tablet extended release 24 hr 150 mg PO DAILY cetirizine 5 mg tablet 5 mg PO DAILY doxazosin 2 mg tablet 2 mg PO DAILY isosorbide mononitrate 30 mg tablet extended release 24 hr 30 mg PO DAILY mirtazapine 30 mg tablet 30 mg PO QHS montelukast 10 mg tablet 10 mg PO DAILY multivitamin with folic acid [Daily-Carmelo (with folic acid)] 400 mcg tablet 1 tab PO DAILY pantoprazole 40 mg tablet,delayed release (DR/EC) 40 mg PO DAILY potassium chloride 20 mEq tablet,ER particles/crystals 20 meq PO DAILY budesonide 0.5 mg/2 mL suspension for nebulization Patient Comments: [NO ORIGINAL SIG] gabapentin 100 mg capsule PO ipratropium-albuterol 0.5 mg-3 mg(2.5 mg base)/3 mL solution for nebulization Patient Comments: [NO ORIGINAL SIG] metoprolol tartrate 25 mg tablet 25 mg PO BID dicyclomine 10 mg capsule 10 mg PO TID azelastine 137 mcg (0.1 %) spray,non-aerosol INTRANASAL Patient Comments: [NO ORIGINAL SIG] Held clopidogrel 75 mg tablet 75 mg PO DAILY Hold Instructions: Hold while taking Eliquis for 1 month. Discontinued calcium carbonate 500 mg calcium (1,250 mg) tablet,chewable PO furosemide 20 mg tablet 20 mg PO DAILY sennosides-docusate sodium [Senexon-S] 8.6-50 mg tablet 1 tab PO DAILY acetaminophen 500 mg tablet 500 mg PO BID Referrals / Follow Up: Kam Ocampo Sr., DO [Primary Care Provider] - Within 1 Week Thanh Mclaughlin DO [Med Staff - Active Staff] - Within 2 Weeks Disposition Disposition (needs filled in before D/C Order can be placed): Group Home Facility Charges/Coding Visit Charges Inpatient E&M: 33770 Disch Hosp >30min 07/28/24 1130 <Electronically signed by Neymar Cunningham MD> Cosigner Signature (if applicable): CC: Dr. Kam Ocampo Sr., ; Dr. Neymar Cunningham MD~ Signed [facility] Work Phone: [phone] [phone] Discharge summary Author Neymar Cunningham [facility] Note Date/Time July 28, 2024 11:2 8am [facility] Medical Records Department [address] [place] [address] Transfer to [facility] MR#: [id number] Acct: [id number] Name: KATHERINE JUDGE Rep #:[id number] : 1935 89 From: Neymar Herrera PCP: Dr. Kam Ocampo Sr., DO Status:A DM IN Certification of patient admission REQUIRED AT TIME OF ADMISSION. I CERTIFY THAT POST-HOSPITAL ECF SERVICES ARE REQUIRED TO BE GIVEN ON AN IN-PATIENT BASIS BECAUSE OF THE ABOVE NAMED PATIENT'S NEED FOR USP CARE ON A CONTINUING BASIS FOR THE CONDITION(S) FOR WHICH HE/SHE WAS RECEIVING IN-PATIENT HOSPITAL SERVICES PRIOR TO HIS/HER TRANSFER TO THE [facility]. 07/28/24 1128<Electronically signed by Neymar Cunningham MD> Diet Diet Order/Speech Therapy: INPATIENT Hospital Diet / Speech Therapy Order(s) 07/26/24 21:06 Diet: Regular - General Routine Orders/Code Status Routine Lab Work: CBC and BMP (CBC and BMP in 1 week) DC O2, CPAP, BIPAP needs Home O2 Discharge instructions: Yes Type of respiratory needs?: Oxygen Oxygen frequency: Continuous Continuous oxygen liters per minute: 2 Wound(s) r thigh: Wound Type: Surgical Incision Problem/Diagnosis (1) Closed intertrochanteric fracture of right hip: Status: Acute Code(s): S72.141A - Displaced intertrochanteric fracture of right femur, initial encounter for closed fracture (2) Acute on chronic heart failure with preserved ejection fraction (HFpEF): Status: Acute Code(s): I50.33 - Acute on chronic diastolic (congestive) heart failure Plan Patient is an 89-year-old female who presented to [facility] ED on 07/25/2024 with right hip pain after a mechanical fall. 1. Acute debility due to right hip nondisplaced intertrochanteric fracture: Patient is being admitted on [facility] floor. Hip and pelvis x-rays reviewed and agrees with nondisplaced fracture as mentioned.. Orthopedic surgeon Dr. Mclaughlinconsulted. Patient is going for surgery today. PT and OT consulted. Perioperative evaluation was done, NSQIP at above average risk, mention in detail below. Pain management. 07/27: Patient has cephalomedullary fixation of right hip with implant. Patient is doing well. Continue PT and OT and pain control. On Eliquis 2.5 mg twice daily for DVT prophylaxis.Will require SNF 07/28: Patient is doing well. Orthopedic surgery follow-up reviewed. Okay for discharge from orthopedic point of view. Follow-up in 2 weeks for george removal and wound check. 2. Mild acute on chronic HFpEF with hypoxia, history of CAD with stenting, hypertension, hyperlipidemia, history of CVA ? Last echo in 10/2022 showed EF 70%, LA enlargement but no diastolic dysfunction, no valvular issues. Chest x-ray on admit with cardiomegaly with vascular congestion and atelectasis at lung bases. Patient on home oxygen as needed in detention but required 4 L at time of admission. She was tapered off oxygen in the morning but changed to 2 L. Echo shows EF 70% with stage I diastolic dysfunction, mild to moderate, anteriorly directed MR, moderate pulmonary hypertension, RVSP 65 mmHg. Moderate TR. In the morning today, patient BP was lower side and looks euvolemic. Patient had 2 doses of 40 mg IV furosemide yesterday. Hold Lasix today and might consider after surgery depending upon the fluid status. 07/27: Blood pressure has improved. Today on furosemide 20 mg daily, increased to 40 mg oral tomorrow a.m. Continue monitor. 07/28: Patient did not had bowel movement yesterday but had on 07/26. Senna S2 tablet twice daily, MiraLAX 17 g p.o. twice daily and Dulcolax suppository ordered. She has history of 3 bowel obstructions which required surgery due to adhesions from previous hysterectomy. No chest pain or shortness of breath. Continue patient's cardiac medications. 3. Acute anemia due to blood loss: Patient baseline hemoglobin about 10.5 g% dropped to 7.3 after surgery. Anemia workup including reticulocyte panel and ferritin ordered. Iron infusion ordered. Preoperative evaluation ? NSQIP score: Patient is at above average risk of any complication answers complication given age, partially dependent functional status, CHF and hypertension. ? Labs/imaging: Hemoglobin and kidney function stable at baseline. No further labs or imaging required preoperatively. Follow-up CBC and BMP postoperatively. ? Cardiac workup: Mild HFpEF exacerbation as noted above. Repeat echocardiogram, BNP and troponins ordered. ? Medications: Okay to continue Lopressor, doxazosin, Lasix and Imdur. Holding Plavix for procedure, will defer to orthopedics on timing of restarting. ? Prior procedural complications: None. ? Recommendation: Recommend holding on procedure until cardiac workup as above has resulted and patient has been optimized from a volume status standpoint. Will keep patient n.p.o. at midnight in case procedure can be done tomorrow afternoon. Resume beta-simon after surgery when oral is allowed. 4. Acute on chronic debility, history of bilateral knee replacements ? PT/OT/case management consulted as above. Lives in [facility], will likely be okay to return there on discharge. 5. Mild chronic anemia ? Hemoglobin stable at baseline 10-11 on admission. 6. Anxiety/depression ? Stable. Continue home bupropion and mirtazapine. 7. GERD ? Continue home PPI. DVT prophylaxis: SCDs CODE STATUS: DNR CCA, DNI Clinical Impression(s) from Imaging Studies Hip/Pelvis X-Ray 07/25/24 15:10 IMPRESSION: Nondisplaced right intertrochanteric fracture of the proximal right femur. Reading Location: [facility] Chest X-Ray 07/25/24 15:15 IMPRESSION: Cardiomegaly and vascular congestion with atelectasis at the lung bases. Reading Location: [facility] Femur X-Ray 07/25/24 17:40 IMPRESSION: Nondisplaced intertrochanteric fracture. Reading Location: [id number] Echocardiogram 07/25/24 22:20 Interpretation Summary Hypermobile atrial septum. Normal LV size. Left ventricular systolic function is normal. The left ventricular ejection fraction is 70 %. Stage 1 diastolic dysfunction. Mild-Moderate (1-2+) anteriorly directed mitral valve insufficiency. Posterior leaflet mitral valve prolapse. Moderate pulmonary hypertension. Allergies/Procedures Done in Hospital Allergies cephalexin Allergy (Verified 07/25/24 14:52) PT UNSURE OF REACTION clarithromycin Allergy (Verified 07/25/24 14:52) PT UNSURE OF REACTION clindamycin Allergy (Verified 07/25/24 14:52) PT UNSURE OF REACTION erythromycin base Allergy (Verified 07/25/24 14:52) PT UNSURE OF REACTION eszopiclone Allergy (Verified 07/25/24 14:52) PT UNSURE OF REACTION Fish Containing Products (seafood) Allergy (Verified 07/25/24 14:52) PT UNSURE OF REACTION fish derived Allergy (Verified 07/25/24 14:52) PT UNSURE OF REACTION lincomycin Allergy (Verified 07/25/24 14:52) PT UNSURE OF REACTION lorazepam Allergy (Verified 07/25/24 14:52) PT UNSURE OF REACTION mushroom (mushrooms) Allergy (Verified 07/25/24 14:52) PT UNSURE OF REACTION NSAIDS (Non-Steroidal Anti-Inflamma Allergy (Verified 07/25/24 14:52) PT UNSURE OF REACTION Penicillins Allergy (Verified 07/25/24 14:52) PT UNSURE OF REACTION rofecoxib Allergy (Verified 07/25/24 14:52) PT UNSURE OF REACTION salicylates Allergy (Verified 07/25/24 14:52) PT UNSURE OF REACTION temazepam Allergy (Verified 07/25/24 14:52) PT UNSURE OF REACTION Tetracyclines Allergy (Verified 07/25/24 14:52) PT UNSURE OF REACTION trazodone Allergy (Verified 07/25/24 14:52) PT UNSURE OF REACTION Type of Care/Length of Stay Estimated LOS: Convalescent Care Less Than 30 days Type of Care Needed: Skilled Rehab Potential: Good Prognosis: Good Additional Orders/Day of Discharge Day of Discharge: 07/28/24 Discharge Plan Admission Admit Date/Time: 07/25/24 16:51 Primary Reason for Your Visit: Right hip fracture Attending Provider: Neymar Cunningham Primary Care Provider: Kam Ocampo Sr. Consulting Providers: Thanh Mclaughlin; Hayden Diaz Discharge Orders/Prescriptions Prescriptions: New acetaminophen 500 mg Tablet 1,000 mg PO Q8 Qty: 0 0RF Rx Instructions: 1 g every 8 hourly for 1 week and then 1 g every 8 hourly as needed for severe pain Eliquis 5 mg Tablet 2.5 mg PO BID Qty: 0 0RF Rx Instructions: For total 30 days calcium carbonate 200 mg calcium (500 mg) Tablet,Chewable 500 mg PO TIDCM Qty: 0 0RF cholecalciferol (vitamin D3) 125 mcg (5,000 unit) capsule 125 mcg PO DAILY Qty: 0 0RF furosemide 40 mg Tablet 40 mg PO DAILY Qty: 0 0RF Rx Instructions: 40 mg daily for 5 days and then 20 mg daily sennosides-docusate sodium [Stimulant Laxative Plus] 8.6-50 mg Tablet 2 tab PO BID Qty: 0 0RF polyethylene glycol 3350 [Miralax] 17 gram/dose powder 17 g PO BID 30 Days Qty: 1020 0RF Rx Instructions: Twice daily for 3 days and then once daily ferrous sulfate [FeroSul] 325 mg (65 mg iron) tablet 325 mg PO DAILY 30 Days Qty: 30 2RF ascorbic acid (vitamin C) 500 mg tablet 500 mg PO BID Qty: 60 2RF Continued atorvastatin 40 mg tablet 40 mg PO DAILY bupropion HCl 150 mg tablet extended release 24 hr 150 mg PO DAILY cetirizine 5 mg tablet 5 mg PO DAILY doxazosin 2 mg tablet 2 mg PO DAILY isosorbide mononitrate 30 mg tablet extended release 24 hr 30 mg PO DAILY mirtazapine 30 mg tablet 30 mg PO QHS montelukast 10 mg tablet 10 mg PO DAILY multivitamin with folic acid [Daily-Carmelo (with folic acid)] 400 mcg tablet 1 tab PO DAILY pantoprazole 40 mg tablet,delayed release (DR/EC) 40 mg PO DAILY potassium chloride 20 mEq tablet,ER particles/crystals 20 meq PO DAILY budesonide 0.5 mg/2 mL suspension for nebulization Patient Comments: [NO ORIGINAL SIG] gabapentin 100 mg capsule PO ipratropium-albuterol 0.5 mg-3 mg(2.5 mg base)/3 mL solution for nebulization Patient Comments: [NO ORIGINAL SIG] metoprolol tartrate 25 mg tablet 25 mg PO BID dicyclomine 10 mg capsule 10 mg PO TID azelastine 137 mcg (0.1 %) spray,non-aerosol INTRANASAL Patient Comments: [NO ORIGINAL SIG] Held clopidogrel 75 mg tablet 75 mg PO DAILY Hold Instructions: Hold while taking Eliquis for 1 month. Discontinued calcium carbonate 500 mg calcium (1,250 mg) tablet,chewable PO furosemide 20 mg tablet 20 mg PO DAILY sennosides-docusate sodium [Senexon-S] 8.6-50 mg tablet 1 tab PO DAILY acetaminophen 500 mg tablet 500 mg PO BID Referrals / Follow Up: Kam Ocampo Sr., DO [Primary Care Provider] - Within 1 Week Thanh Mclaughlin DO [Med Staff - Active Staff] - Within 2 Weeks Disposition Disposition (needs filled in before D/C Order can be placed): Group Home Facility (1) Closed intertrochanteric fracture of right hip Qualifiers: Encounter type: initial encounter Fracture alignment: displaced Qualified Code(s): S72.141A - Displaced intertrochanteric fracture of right femur, initialencounter for closed fracture 07/28/24 1128 <Electronically signed by Neymar Cunningham MD> Cosigner Signature (if applicable): CC: Dr. Hayden Diaz DO; Dr. Kam Ocampo Sr., DO; Dr. Thanh Mclaughlin DO ~ [facility] Work Phone: [phone] Discharge summary [facility] Medical Records Department [address] [place] [address] Discharge Summary 07/28/24 1128 MR#: [id number] Acct: [id number] Name: KATHERINE JUDGE Rep #:[id number] : 1935 89 From: Neymar Herrera PCP: Dr. Kam Ocampo Sr., DO Status:A DM IN Location: [place] [address]-1 Providers Date of Admission: 07/25/24 Date of Discharge: 07/28/24 Primary Care Physician: Dr. Kam Ocampo Sr., DO Consultations 07/25/24 18:26 Consult: Orthopedics Routine Consulting Provider: Thanh Mclaughlin Reason for Consult: right hip fracture EMERGENT Consult: No MD Notified: Yes Date Notified: 07/25/24 Time Notified: 17:00 Method of Notification: ED Physician Initiated Reason For Visit: FALL WITH HIP FRACTURE Diagnosis Discharge Diagnosis (1) Closed intertrochanteric fracture of right hip: Status: Acute Code(s): S72.141A - Displaced intertrochanteric fracture of right femur, initial encounter for closed fracture Qualifiers: Encounter type: initial encounter Fracture alignment: displaced Qualified Code(s): S72.141A - Displaced intertrochanteric fracture of right femur, initial encounter for closed fracture (2) Acute on chronic heart failure with preserved ejection fraction (HFpEF): Status: Acute Code(s): I50.33 - Acute on chronic diastolic (congestive) heart failure Plan Patient is an 89-year-old female who presented to [facility] ED on 07/25/2024 with right hip pain after a mechanical fall. 1. Acute debility due to right hip nondisplaced intertrochanteric fracture: Patient is being admitted on [facility] floor. Hip and pelvis x-rays reviewed and agrees with nondisplaced fracture as mentioned.. Orthopedic surgeon Dr. Mclaughlinconsulted. Patient is going for surgery today. PT and OT consulted. Perioperative evaluation was done, NSQIP at above average risk, mention in detail below. Pain management. 07/27: Patient has cephalomedullary fixation of right hip with implant. Patient is doing well. Continue PT and OT and pain control. On Eliquis 2.5 mg twice daily for DVT prophylaxis.Will require SNF 07/28: Patient is doing well. Orthopedic surgery follow-up reviewed. Okay for discharge from orthopedic point of view. Follow-up in 2 weeks for george removal and wound check. 2. Mild acute on chronic HFpEF with hypoxia, history of CAD with stenting, hypertension, hyperlipidemia, history of CVA ? Last echo in 10/2022 showed EF 70%, LA enlargement but no diastolic dysfunction, no valvular issues. Chest x-ray on admit with cardiomegaly with vascular congestion and atelectasis at lung bases. Patient on home oxygen as needed in detention but required 4 L at time of admission. She was tapered off oxygen in the morning but changed to 2 L. Echo shows EF 70% with stage I diastolic dysfunction, mild to moderate, anteriorly directed MR, moderate pulmonary hypertension, RVSP 65 mmHg. Moderate TR. In the morning today, patient BP was lower side and looks euvolemic. Patient had 2 doses of 40 mg IV furosemide yesterday. Hold Lasix today and might consider after surgery depending upon the fluid status. 07/27: Blood pressure has improved. Today on furosemide 20 mg daily, increased to 40 mg oral tomorrow a.m. Continue monitor. 07/28: Patient did not had bowel movement yesterday but had on 07/26. Senna S2 tablet twice daily, MiraLAX 17 g p.o. twice daily and Dulcolax suppository ordered. She has history of 3 bowel obstructions which required surgery due to adhesions from previous hysterectomy. No chest pain or shortness of breath. Continue the above regimen. 3. Acute anemia due to blood loss: Patient baseline hemoglobin about 10.5 g% dropped to 7.3 after surgery. Anemia workup including reticulocyte panel and ferritin ordered. Iron infusion ordered. 07/27: Serum iron saturation normal 22%, iron low, TIBC low. B12 normal. Reticulocyte panel shows reactive bone marrow with high reticulocyte count 2.42%and immature reticulocyte fraction 16.8%. Prescription for ferrous sulfate and vitamin C advised. Follow-up CBC and BMP in 1 week in detention. Preoperative evaluation ? NSQIP score: Patient is at above average risk of any complication answers complication given age,partially dependent functional status, CHF and hypertension. ? Labs/imaging: Hemoglobin and kidney function stable at baseline. No further labs or imaging required preoperatively. Follow-up CBC and BMP postoperatively. ? Cardiac workup: Mild HFpEF exacerbation as noted above. Repeat echocardiogram, BNP and troponins ordered. ? Medications: Okay to continue Lopressor, doxazosin, Lasix and Imdur. Holding Plavix for procedure, will defer to orthopedics on timing of restarting. ? Prior procedural complications: None. ? Recommendation: Recommend holding on procedure until cardiac workup as above has resulted and patient has been optimized from a volume status standpoint. Will keep patient n.p.o. at midnight in case procedure can be done tomorrow afternoon. Resume beta-simon after surgery when oral is allowed. 4. Acute on chronic debility, history of bilateral knee replacements ? PT/OT/case management consulted as above. Lives in [facility], will likely be okay to return there on discharge. 5. Mild chronic anemia ? Hemoglobin stable at baseline 10-11 on admission. 6. Anxiety/depression ? Stable. Continue home bupropion and mirtazapine. 7. GERD ? Continue home PPI. DVT prophylaxis: SCDs CODE STATUS: DNR CCA, DNI Clinical Impression(s) from Imaging Studies Hip/Pelvis X-Ray 07/25/24 15:10 IMPRESSION: Nondisplaced right intertrochanteric fracture of the proximal right femur. Reading Location: [facility] Chest X-Ray 07/25/24 15:15 IMPRESSION: Cardiomegaly and vascular congestion with atelectasis at the lung bases. Reading Location: [facility]-1 Femur X-Ray 07/25/24 17:40 IMPRESSION: Nondisplaced intertrochanteric fracture. Reading Location: [id number] Echocardiogram 07/25/24 22:20 Interpretation Summary Hypermobile atrial septum. Normal LV size. Left ventricular systolic function is normal. The left ventricular ejection fraction is 70 %. Stage 1 diastolic dysfunction. Mild-Moderate (1-2+) anteriorly directed mitral valve insufficiency. Posterior leaflet mitral valve prolapse. Moderate pulmonary hypertension. Medications at Discharge Home Medications atorvastatin 40 mg tablet 40 mg PO DAILY hyperlipidemia 07/25/24 azelastine 137 mcg (0.1 %) nasal spray intranasal allergies 07/25/24 budesonide 0.5 mg/2 mL suspension for nebulization mg surgical endoscopist 07/25/24 bupropion HCl 150 mg 24 hr tablet, extended release 150 mg PO DAILY . 07/25/24 cetirizine 5 mg tablet 5 mg PO DAILY . 07/25/24 clopidogrel 75 mg tablet 75 mg PO DAILY . 07/25/24 Held on 07/28/24. Instructions: Hold while taking Eliquis for 1 month. dicyclomine 10 mg capsule 10 mg PO TID . 07/25/24 doxazosin 2 mg tablet 2 mg PO DAILY . 07/25/24 gabapentin 100 mg capsule PO . 07/25/24 ipratropium 0.5 mg-albuterol 3 mg (2.5 mg base)/3 mL nebulization soln ml . 07/25/24 isosorbide mononitrate 30 mg tablet,extended release 24 hr 30 mg PO DAILY . 07/25/24 metoprolol tartrate 25 mg tablet 25 mg PO BID . 07/25/24 mirtazapine 30 mg tablet 30 mg PO QHS . 07/25/24 montelukast 10 mg tablet 10 mg PO DAILY . 07/25/24 multivitamin with folic acid 400 mcg tablet (Daily-Carmelo (with folic acid)) 1 tabPO DAILY . 07/25/24 pantoprazole 40 mg tablet,delayed release 40 mg PO DAILY . 07/25/24 potassium chloride 20 mEq tablet,extended release(part/cryst) 20 meq PO DAILY . 07/25/24 acetaminophen 500 mg tablet 1,000 mg (2 x 500 mg) PO Q8 #0 tabs 07/28/24 apixaban 5 mg tablet (Eliquis) 2.5 mg (1/2 x 5 mg) PO BID #0 tabs 07/28/24 ascorbic acid (vitamin C) 500 mg tablet 500 mg PO BID #60 tabs 07/28/24 calcium carbonate 500 mg (2.5 x 200 mg calcium (500 mg)) PO TIDCM #0 tabs 07/28/24 cholecalciferol (vitamin D3) 125 mcg (5,000 unit) capsule 125 mcg PO DAILY #0 caps 07/28/24 ferrous sulfate 325 mg (65 mg iron) tablet (FeroSul) 325 mg PO DAILY 30 days #30tabs 07/28/24 furosemide 40 mg tablet 40 mg PO DAILY #0 tabs 07/28/24 polyethylene glycol 3350 17 gram/dose oral powder (Miralax) 17 g PO BID 1 month #1,020 grams 07/28/24 sennosides 8.6 mg-docusate sodium 50 mg tablet (Stimulant Laxative Plus) 2 tab PO BID #0 tabs 07/28/24 Physical Exam Narrative Please see exam finding on the progress note Weight / BMI Weight Weight: 107 lb Body Mass Index (BMI) 20.9 ABG / Lab / Microbiology Data 07/28/24 06:55 07/28/24 06:55 Laboratory: Laboratory Results - last 24 hr 07/28/24 06:55: WBC 8.1, RBC 2.24 L, Hgb 7.3 L, Hct 22.1 L, MCV 98.7, MCH 32.6 H, MCHC 33.0, RDW Std Deviation 50.4 H, RDW Coeff of Tamera 14.1, Plt Count 135 L, MPV 9.4, Immature Gran % (Auto) 0.100, Neut % (Auto) 65.7, Lymph % (Auto) 25.1, [place] % (Auto) 5.8, Eos % (Auto) 2.9, Baso % (Auto) 0.4, Absolute Neuts (auto) 5.3, Absolute Lymphs (auto) 2.02, Nucleated RBC % 0, Retic Count 2.42 H, Immature Retic Fraction 16.80 H, Retic Hgb Equivalent 34.0, Sodium 137, Potassium4.2, Chloride 101, Carbon Dioxide 29.4, Anion Gap 7, BUN 17, Creatinine 0.88, Estim Creat Clear Calc 31.74 L, Est GFR (MDRD) Non-Af 63, BUN/Creatinine Ratio 19.7, Glucose 98, Calcium 8.8, Iron 38 L, Iron Saturation 22.0, Unsatura maura IBC 137 L, Ferritin 176, Vitamin B12 867 D/C Instructions DC O2, CPAP, BIPAP Needs Home O2 Discharge instructions: Yes Type of respiratory needs?: Oxygen Oxygen frequency: ContinuousContinuous oxygen liters per minute: 2 DC home with Oxygen: Yes Home O2 MD Review: I have reviewed the oxygen testing, and the patient qualifies for home oxygen equipment and portability. The patient is mobile in the home and the community. Meaningful Use Info Meaningful Use Meaningful Use Diagnoses (Choose all that apply): None applicable Ischemic Stroke Statin Dosing Therapy Reference: STATIN DOSE THERAPY REFERENCE: * Patients > 75 years receive moderate or high dose statin therapy. * Patients 75 years or YOUNGER should receive HIGH intensity statin dose unless contraindicated. You will be required to document reason for non-treatment if statin daily dose does not meet guidelines. HIGH DOSE STATIN THERAPY DAILY Atorvastatin > than or = to 40 mg Rosuvastatin > than or = to 20 mg Amlodipine + Atorvastatin > than or = to 2.5/40 mg Ezetimibe + Simvastatin 10/80 mg Simvastatin 80mg Discharge Plan Admission Admit Date/Time: 07/25/24 16:51 Primary Reason for Your Visit: Right hip fracture Attending Provider: Neymar Cunningham Primary Care Provider: Kam Ocampo Sr. Consulting Providers: Thanh Mclaughlin; Hayden Diaz Discharge Orders/Prescriptions Prescriptions: New acetaminophen 500 mg Tablet 1,000 mg PO Q8 Qty: 0 0RF Rx Instructions: 1 g every 8 hourly for 1 week and then 1 g every 8 hourly as needed for severe pain Eliquis 5 mg Tablet 2.5 mg PO BID Qty: 0 0RF Rx Instructions: For total 30 days calcium carbonate 200 mg calcium (500 mg) Tablet,Chewable 500 mg PO TIDCM Qty: 0 0RF cholecalciferol (vitamin D3) 125 mcg (5,000 unit) capsule 125 mcg PO DAILY Qty: 0 0RF furosemide 40 mg Tablet 40 mg PO DAILY Qty: 0 0RF Rx Instructions: 40 mg daily for 5 days and then 20 mg daily sennosides-docusate sodium [Stimulant Laxative Plus] 8.6-50 mg Tablet 2 tab PO BID Qty: 0 0RF polyethylene glycol 3350 [Miralax] 17 gram/dose powder 17 g PO BID 30 Days Qty: 1020 0RF Rx Instructions: Twice daily for 3 days and then once daily ferrous sulfate [FeroSul] 325 mg (65 mg iron) tablet 325 mg PO DAILY 30 Days Qty: 30 2RF ascorbic acid (vitamin C) 500 mg tablet 500 mg PO BID Qty: 60 2RF Continued atorvastatin 40 mg tablet 40 mg PO DAILY bupropion HCl 150 mg tablet extended release 24 hr 150 mg PO DAILY cetirizine 5 mg tablet 5 mg PO DAILY doxazosin 2 mg tablet 2 mg PO DAILY isosorbide mononitrate 30 mg tablet extended release 24 hr 30 mg PO DAILY mirtazapine 30 mg tablet 30 mg PO QHS montelukast 10 mg tablet 10 mg PO DAILY multivitamin with folic acid [Daily-Carmelo (with folic acid)] 400 mcg tablet 1 tab PO DAILY pantoprazole 40 mg tablet,delayed release (DR/EC) 40 mg PO DAILY potassium chloride 20 mEq tablet,ER particles/crystals 20 meq PO DAILY budesonide 0.5 mg/2 mL suspension for nebulization Patient Comments: [NO ORIGINAL SIG] gabapentin 100 mg capsule PO ipratropium-albuterol 0.5 mg-3 mg(2.5 mg base)/3 mL solution for nebulization Patient Comments: [NO ORIGINAL SIG] metoprolol tartrate 25 mg tablet 25 mg PO BID dicyclomine 10 mg capsule 10 mg PO TID azelastine 137 mcg (0.1 %) spray,non-aerosol INTRANASAL Patient Comments: [NO ORIGINAL SIG] Held clopidogrel 75 mg tablet 75 mg PO DAILY Hold Instructions: Hold while taking Eliquis for 1 month. Discontinued calcium carbonate 500 mg calcium (1,250 mg) tablet,chewable PO furosemide 20 mg tablet 20 mg PO DAILY sennosides-docusate sodium [Senexon-S] 8.6-50 mg tablet 1 tab PO DAILY acetaminophen 500 mg tablet 500 mg PO BID Referrals / Follow Up: Kam Ocampo Sr., DO [Primary Care Provider] - Within 1 Week Thanh Mclaughlin DO [Med Staff - Active Staff] - Within 2 Weeks Disposition Disposition (needs filled in before D/C Order can be placed): Group Home Facility Charges/Coding Visit Charges Inpatient E&M: 27154 Disch Hosp >30min 07/28/24 1130 Cosigner Signature (if applicable): CC: Dr. Kam Ocampo Sr., DO; Dr. Neymar Cunningham MD~ Signed [facility]06-19-2025 Discharge summary [facility] Medical Records Department [address] [place] [address] Transfer to [facility] MR#: [id number] Acct: [id number] Name: KATHERINE JUDGE Rep #:[id number] : 1935 89 From: Neymar Herrera PCP: Dr. Kam Ocampo Sr., DO Status:A DM IN Certification of patient admission REQUIRED AT TIME OF ADMISSION. I CERTIFY THAT POST-HOSPITAL ECF SERVICES ARE REQUIRED TO BE GIVEN ON AN IN-PATIENT BASIS BECAUSE OF THE ABOVE NAMED PATIENT'S NEED FOR USP CARE ON A CONTINUING BASIS FOR THE CONDITION(S) FOR WHICH HE/SHE WAS RECEIVING IN-PATIENT HOSPITAL SERVICES PRIOR TO HIS/HER TRANSFER TO THE ECF. 07/28/24 1128 Diet Diet Order/Speech Therapy: INPATIENT Hospital Diet / Speech Therapy Order(s) 07/26/24 21:06 Diet: Regular - General Routine Orders/Code Status Routine Lab Work: CBC and BMP (CBC and BMP in 1 week) DC O2, CPAP, BIPAP needs Home O2 Discharge instructions: Yes Type of respiratory needs?: Oxygen Oxygen frequency: ContinuousContinuous oxygen liters per minute: 2 Wound(s) r thigh: Wound Type: Surgical Incision Problem/Diagnosis (1) Closed intertrochanteric fracture of right hip: Status: Acute Code(s): S72.141A - Displaced intertrochanteric fracture of right femur, initial encounter for closed fracture (2) Acute on chronic heart failure with preserved ejection fraction (HFpEF): Status: Acute Code(s): I50.33 - Acute on chronic diastolic (congestive) heart failure Plan Patient is an 89-year-old female who presented to [facility] ED on 07/25/2024 with right hip pain after a mechanical fall. 1. Acute debility due to right hip nondisplaced intertrochanteric fracture: [facility] Hip and pelvis x-rays reviewed and agrees with nondisplaced fracture as mentioned.. Orthopedic surgeon Dr. Mclaughlinconsulted. Patient is going for surgery today. PT and OT consulted. Perioperative evaluation was done, NSQIP at above average risk, mention in detail below. Pain management. 07/27: Patient has cephalomedullary fixation of right hip with implant. Patient is doing well. Continue PT and OT and pain control. On Eliquis 2.5 mg twice daily for DVT prophylaxis.Will require SNF 07/28: Patient is doing well. Orthopedic surgery follow-up reviewed. Okay for discharge from orthopedic point of view. Follow-up in 2 weeks for george removal and wound check. 2. Mild acute on chronic HFpEF with hypoxia, history of CAD with stenting, hypertension, hyperlipidemia, history of CVA ? Last echo in 10/2022 showed EF 70%, LA enlargement but no diastolic dysfunction, no valvular issues. Chest x-ray on admit with cardiomegaly with vascular congestion and atelectasis at lung bases. Patient on home oxygen as needed in detention but required 4 L at time of admission. She was tapered off oxygen in the morning but changed to 2 L. Echo shows EF 70% with stage I diastolic dysfunction, mild to moderate, anteriorly directed MR, moderate pulmonary hypertension, RVSP 65 mmHg. Moderate TR. In the morning today, patient BP was lower side and looks euvolemic. Patient had 2 doses of 40 mg IV furosemide yesterday. Hold Lasix today and might consider after surgery depending upon the fluid status. 07/27: Blood pressure has improved. Today on furosemide 20 mg daily, increased to 40 mg oral tomorrow a.m. Continue monitor. 07/28: Patient did not had bowel movement yesterday but had on 07/26. Senna S2 tablet twice daily, MiraLAX 17 g p.o. twice daily and Dulcolax suppository ordered. She has history of 3 bowel obstructions which required surgery due to adhesions from previous hysterectomy. No chest pain or shortness of breath. Continue patient's cardiac medications. 3. Acute anemia due to blood loss: Patient baseline hemoglobin about 10.5 g% dropped to 7.3 after surgery. Anemia workup including reticulocyte panel and ferritin ordered. Iron infusion ordered. Preoperative evaluation ? NSQIP score: Patient is at above average risk of any complication answers complication given age,partially dependent functional status, CHF and hypertension. ? Labs/imaging: Hemoglobin and kidney function stable at baseline. No further labs or imaging required preoperatively. Follow-up CBC and BMP postoperatively. ? Cardiac workup: Mild HFpEF exacerbation as noted above. Repeat echocardiogram, BNP and troponins ordered. ? Medications: Okay to continue Lopressor, doxazosin, Lasix and Imdur. Holding Plavix for procedure, will defer to orthopedics on timing of restarting. ? Prior procedural complications: None. ? Recommendation: Recommend holding on procedure until cardiac workup as above has resulted and patient has been optimized from a volume status standpoint. Will keep patient n.p.o. at midnight in case procedure can be done tomorrow afternoon. Resume beta-simon after surgery when oral is allowed. 4. Acute on chronic debility, history of bilateral knee replacements ? PT/OT/case management consulted as above. Lives in [facility], will likely be okay to return there on discharge. 5. Mild chronic anemia ? Hemoglobin stable at baseline 10-11 on admission. 6. Anxiety/depression ? Stable. Continue home bupropion and mirtazapine. 7. GERD ? Continue home PPI. DVT prophylaxis: SCDs CODE STATUS: DNR CCA, DNI Clinical Impression(s) from Imaging Studies Hip/Pelvis X-Ray 07/25/24 15:10 IMPRESSION: Nondisplaced right intertrochanteric fracture of the proximal right femur. Reading Location: [facility]-1 Chest X-Ray 07/25/24 15:15 IMPRESSION: Cardiomegaly and vascular congestion with atelectasis at the lung bases. Reading Location: [facility]-1 Femur X-Ray 07/25/24 17:40 IMPRESSION: Nondisplaced intertrochanteric fracture. Reading Location: [id number] Echocardiogram 07/25/24 22:20 Interpretation Summary Hypermobile atrial septum. Normal LV size. Left ventricular systolic function is normal. The left ventricular ejection fraction is 70 %. Stage 1 diastolic dysfunction. Mild-Moderate (1-2+) anteriorly directed mitral valve insufficiency. Posterior leaflet mitral valve prolapse. Moderate pulmonary hypertension. Allergies/Procedures Done in Hospital Allergies cephalexin Allergy (Verified 07/25/24 14:52) PT UNSURE OF REACTION clarithromycin Allergy (Verified 07/25/24 14:52) PT UNSURE OF REACTION clindamycin Allergy (Verified 07/25/24 14:52) PT UNSURE OF REACTION erythromycin base Allergy (Verified 07/25/24 14:52) PT UNSURE OF REACTION eszopiclone Allergy (Verified 07/25/24 14:52) PT UNSURE OF REACTION Fish Containing Products (seafood) Allergy (Verified 07/25/24 14:52) PT UNSURE OF REACTION fish derived Allergy (Verified 07/25/24 14:52) PT UNSURE OF REACTION lincomycin Allergy (Verified 07/25/24 14:52) PT UNSURE OF REACTION lorazepam Allergy (Verified 07/25/24 14:52) PT UNSURE OF REACTION mushroom (mushrooms) Allergy (Verified 07/25/24 14:52) PT UNSURE OF REACTION NSAIDS (Non-Steroidal Anti-Inflamma Allergy (Verified 07/25/24 14:52) PT UNSURE OF REACTION Penicillins Allergy (Verified 07/25/24 14:52) PT UNSURE OF REACTION rofecoxib Allergy (Verified 07/25/24 14:52) PT UNSURE OF REACTION salicylates Allergy (Verified 07/25/24 14:52) PT UNSURE OF REACTION temazepam Allergy (Verified 07/25/24 14:52) PT UNSURE OF REACTION Tetracyclines Allergy (Verified 07/25/24 14:52) PT UNSURE OF REACTION trazodone Allergy (Verified 07/25/24 14:52) PT UNSURE OF REACTION Type of Care/Length of Stay Estimated LOS: Convalescent Care Less Than 30 days Type of Care Needed: Skilled Rehab Potential: Good Prognosis: Good Additional Orders/Day of Discharge Day of Discharge: 07/28/24 Discharge Plan Admission Admit Date/Time: 07/25/24 16:51 Primary Reason for Your Visit: Right hip fracture Attending Provider: Neymar Cunningham Primary Care Provider: Kam Ocampo Sr. Consulting Providers: Thanh Mclaughlin; Hayden Diaz Discharge Orders/Prescriptions Prescriptions: New acetaminophen 500 mg Tablet 1,000 mg PO Q8 Qty: 0 0RF Rx Instructions: 1 g every 8 hourly for 1 week and then 1 g every 8 hourly as needed for severe pain Eliquis 5 mg Tablet 2.5 mg PO BID Qty: 0 0RF Rx Instructions: For total 30 days calcium carbonate 200 mg calcium (500 mg) Tablet,Chewable 500 mg PO TIDCM Qty: 0 0RF cholecalciferol (vitamin D3) 125 mcg (5,000 unit) capsule 125 mcg PO DAILY Qty: 0 0RF furosemide 40 mg Tablet 40 mg PO DAILY Qty: 0 0RF Rx Instructions: 40 mg daily for 5 days and then 20 mg daily sennosides-docusate sodium [Stimulant Laxative Plus] 8.6-50 mg Tablet 2 tab PO BID Qty: 0 0RF polyethylene glycol 3350 [Miralax] 17 gram/dose powder 17 g PO BID 30 Days Qty: 1020 0RF Rx Instructions: Twice daily for 3 days and then once daily ferrous sulfate [FeroSul] 325 mg (65 mg iron) tablet 325 mg PO DAILY 30 Days Qty: 30 2RF ascorbic acid (vitamin C) 500 mg tablet 500 mg PO BID Qty: 60 2RF Continued atorvastatin 40 mg tablet 40 mg PO DAILY bupropion HCl 150 mg tablet extended release 24 hr 150 mg PO DAILY cetirizine 5 mg tablet 5 mg PO DAILY doxazosin 2 mg tablet 2 mg PO DAILY isosorbide mononitrate 30 mg tablet extended release 24 hr 30 mg PO DAILY mirtazapine 30 mg tablet 30 mg PO QHS montelukast 10 mg tablet 10 mg PO DAILY multivitamin with folic acid [Daily-Carmelo (with folic acid)] 400 mcg tablet 1 tab PO DAILY pantoprazole 40 mg tablet,delayed release (DR/EC) 40 mg PO DAILY potassium chloride 20 mEq tablet,ER particles/crystals 20 meq PO DAILY budesonide 0.5 mg/2 mL suspension for nebulization Patient Comments: [NO ORIGINAL SIG] gabapentin 100 mg capsule PO ipratropium-albuterol 0.5 mg-3 mg(2.5 mg base)/3 mL solution for nebulization Patient Comments: [NO ORIGINAL SIG] metoprolol tartrate 25 mg tablet 25 mg PO BID dicyclomine 10 mg capsule 10 mg PO TID azelastine 137 mcg (0.1 %) spray,non-aerosol INTRANASAL Patient Comments: [NO ORIGINAL SIG] Held clopidogrel 75 mg tablet 75 mg PO DAILY Hold Instructions: Hold while taking Eliquis for 1 month. Discontinued calcium carbonate 500 mg calcium (1,250 mg) tablet,chewable PO furosemide 20 mg tablet 20 mg PO DAILY sennosides-docusate sodium [Senexon-S] 8.6-50 mg tablet 1 tab PO DAILY acetaminophen 500 mg tablet 500 mg PO BID Referrals / Follow Up: Terrence Addison,DO Kam [Primary Care Provider] - Within 1 Week Borruso,Thanh, DO [Med Staff - Active Staff] - Within 2 Weeks Disposition Disposition (needs filled in before D/C Order can be placed): Group Home Facility (1) Closed intertrochanteric fracture of right hip Qualifiers: Encounter type: initial encounter Fracture alignment: displaced Qualified Code(s): S72.141A - Displaced intertrochanteric fracture of right femur, initialencounter for closed fracture 07/28/24 1128 Cosigner Signature (if applicable): CC: Dr. Hayden Diaz, ; Dr. Kam Ocampo Sr., ; Dr. Thanh Mclaughlin DO ~ [facility]06-19-2025 [facility] Medical Records Department [address] [place] [id number] Discharge Summary 07/28/24 1128 MR#: [id number] Acct: [id number] Name: KATHERINE JUDGE Rep #: [id number] : 1935 89 From: Neymar Cunningham MD PCP: Dr. Kam Ocampo Sr., DO Status:ADM IN [facility] Prov[facility] Date of Admission: 07/25/24 Date of Discharge: 07/28/24 Primary Care Physician: Dr. Kam Ocampo Sr., DO Consultations 07/25/24 18:26 Consult: Orthopedics Routine Consulting Provider: Thanh Mclaughlin Reason for Consult: right hip fracture EMERGENT Consult: No MD Notified: Yes Date Notified: 07/25/24 Time Notified: 17:00 Method of Notification: ED Physician Initiated Reason For Visit: FALL WITH HIP FRACTURE Diagnosis Discharge Diagnosis (1) Closed intertrochanteric fracture of right hip: Status: Acute Code(s): S72.141A - Displaced intertrochanteric fracture of right femur, initial encounter for closed fracture Qualifiers: Encounter type: initial encounter Fracture alignment: displaced Qualified Code(s): S 72.141A - Displaced intertrochanteric fracture of right femur, initial encounter for closed fracture (2) Acute on chronic heart failure with preserved ejection fraction (HFpEF): Status: Acute Code(s): I50.33 - Acute on chronic diastolic (congestive) heart failure Plan Patient is an 89-year-old female who presented to [facility] ED on 07/25/2024 with right hip pain after a mechanical fall. 1. Acute debility due to right hip nondisplaced intertrochanteric fracture: [facility] Hip and pelvis x-rays reviewed and agrees with nondisplaced fracture as mentioned.. Orthopedic surgeon Dr. Mclaughlin consulted. Patient is going for surgery today. PT and OT consulted. Perioperative evaluation was done, NSQIP at above average risk, mention in detail below. Pain management. 07/27: Patient has cephalomedullary fixation of right hip with implant. Patient is doing well. Continue PT and OT and pain control. On Eliquis 2.5 mg twice daily for DVT prophylaxis.Will require SNF 07/28: Patient is doing well. Orthopedic surgery follow-up reviewed. Okay for discharge from orthopedic point of view. Follow-up in 2 weeks for george removal and wound check. 2. Mild acute on chronic HFpEF with hypoxia, history of CAD with stenting, hypertension, hyperlipidemia, history of CVA ??? Last echo in 10/2022 showed EF 70%, LA enlargement but no diastolic dysfunction, no valvular issues. Chest x-ray on admit with cardiomegaly with vascular congestion and atelectasis at lung bases. Patient on home oxygen as needed in detention but required 4 L at time of admission. She was tapered off oxygen in the morning but changed to 2 L. Echo shows EF 70% with stage I diastolic dysfunction, mild to moderate, anteriorly directed MR, moderate pulmonary hypertension, RVSP 65 mmHg. Moderate TR. In the morning today, patient BP was lower side and looks euvolemic. Patient had 2 doses of 40 mg IV furosemide yesterday. Hold Lasix today and might consider after surgery depending upon the fluid status. 07/27: Blood pressure has improved. Today on furosemide 20 mg daily, increased to 40 mg oral tomorrow a.m. Continue monitor. 07/28: Patient did not had bowel movement yesterday but had on 07/26. Senna S2 tablet twice daily, MiraLAX 17 g p.o. twice daily and Dulcolax suppository ordered. She has history of 3 bowel obstructions which required surgery due to adhesions from previous hysterectomy. No chest pain or shortness of breath. Continue the above regimen. 3. Acute anemia due to blood loss: Patient baseline hemoglobin about 10.5 g% dropped to 7.3 after surgery. Anemia workup including reticulocyte panel and ferritin ordered. Iron infusion ordered. 07/27: Serum iron saturation normal 22%, iron low, TIBC low. B12 normal. Reticulocyte panel shows reactive bone marrow with high reticulocyte count 2.42% and immature reticulocyte fraction 16.8%. Prescription for ferrous sulfate and vitamin C advised. Follow-up CBC and BMP in 1 week in detention. Preoperative evaluation ??? NSQIP score: Patient is at above average risk of any complication answers complication given age, partially dependent functional status, CHF and hypertension. ??? Labs/imaging: Hemoglobin and kidney function stable at baseline. No further labs or imaging required preoperatively. Follow-up CBC and BMP postoperatively. ??? Cardiac workup: Mild HFpEF exacerbation as noted above. Repeat echocardiogram, BNP and troponins ordered. ??? Medications: Okay to continue Lopressor, doxazosin, Lasix and Imdur. Holding Plavix for procedure, will defer to orthopedics on timing of restarting. ??? Prior procedural complications: None. ??? Recommendation: Recommend holding on procedure until cardiac workup as above has resulted and patient has been (more content not included)...[facility] 07-28-2024 Progress note Author Neymar Cunningham [facility] Note Date/Time July 28, 2024 8:00 am [facility] Medical Records Department [address] [place] [address] Progress Note - Hospitalist 07/28/24 0753 MR#: [id number] Acct: [id number] Name: NUKATHERINE Wilber Rep #:[id number] : 1935 89 From: Neymar Herrera PCP: Dr. Kam Ocampo Sr., DO Status:A DM IN Location: [place] [address] Reason for Visit Reason for Visit: Diagnoses Acute on chronic diastolic (congestive) heart failure (07/25/24) Displaced intertrochanteric fracture of right femur, initial encounter for closed fracture (07/25/24) Objective Data Objective Data Vital Signs: Vital Signs Temp Pulse Resp BP Pulse Ox O2 Del Method O2 Flow Rate 98 F 81 16 141/85 H 98 Nasal Cannula 2 07/28/24 04:03 07/28/24 06:57 07/28/24 06:57 07/28/24 04:03 07/28/24 06:57 07/28/24 06:57 07/28/24 06:57 Oxygen Flow Rate (L/min) 2 Oxygen Delivery Method Nasal Cannula Weight: 107 lb Body Mass Index (BMI) 20.9 Intake & Output: Intake and Output for Last 24 Hours 07/26/24 07/27/24 07/28/24 23:59 23:59 23:59 Intake Total 1000 / 1000 2150 / 2150 Output Total 1350 / 1350 650 / 650 Balance -350 / -350 1500 / 1500 Lab / Micro Data 07/28/24 06:55 07/27/24 05:04 Labs: Laboratory Results - last 24 hr 07/28/24 06:55: WBC 8.1, RBC 2.24 L, Hgb 7.3 L, Hct 22.1 L, MCV 98.7, MCH 32.6 H, MCHC 33.0, RDW Std Deviation 50.4 H, RDW Coeff of Tamera 14.1, Plt Count 135 L, MPV 9.4, Immature Gran % (Auto) 0.100, Neut % (Auto) 65.7, Lymph % (Auto) 25.1, [place] % (Auto) 5.8, Eos % (Auto) 2.9, Baso % (Auto) 0.4, Absolute Neuts (auto) 5.3, Absolute Lymphs (auto) 2.02, Nucleated RBC % 0 Physical Exam Narrative Seen and examined. Patient had right hip surgery on 07/26/2024. Patient is sleeping. Has bowel movement a day before yesterday. She said she had hysterectomy and then had 3 bowel obstructions due to adhesions which required surgery. Positive fluid balance 1150 mL Patient states that she uses oxygen as needed detention. Uses CPAP diligently at night Blood pressure is acceptable. Physical exam General: Alert, Oriented x3, Cooperative HEENT: Atraumatic, PERRLA, EOMI, Normocephalic. Oral: No Gingival or Mucosal Lesions/ Ulcerations Neck: Supple, No JVD, Negative Carotid Bruits Chest wall/Lungs: Air entry diminished in bilateral lung bases. No crepitation/rhonchi Cardiovascular: Regular rate and rhythm, Normal S1,S2, systolic murmur over cardiac apex and left SSV Abdomen: Bowel Sounds Present, Soft, Non Tender, Non-Distended : No dysuria. No renal angle tenderness. No suprapubic tenderness. Extremities: mild pedal edema, Capillary Refill Less than 3 Seconds Skin: No rashes, No breakdown Musculoskeletal: Right hip surgical dressing is dry. No hematoma or bruise. Left hip and knee not tender. Neurological: Cranial nerves II-XII grossly intact, DTR 2+/4. No acute focal neurological deficit. Psych/Mental Status: Flat affect Assessment & Plan Assessment/Plan (1) Closed intertrochanteric fracture of right hip: QUALIFIERS: Encounter type: initial encounter Fracture alignment:displaced Qualified Code(s): S72.141A - Displaced intertrochanteric fracture ofright femur, initial encounter for closed fracture (2) Acute on chronic heart failure with preserved ejection fraction (HFpEF): PLAN: Plan Patient is an 89-year-old female who presented to [facility] ED on 07/25/2024 with right hip pain after a mechanical fall. 1. Acute debility due to right hip nondisplaced intertrochanteric fracture: Patient is being admitted on [facility] floor. Hip and pelvis x-rays reviewed and agrees with nondisplaced fracture as mentioned.. Orthopedic surgeon Dr. Mclaughlinconsulted. Patient is going for surgery today. PT and OT consulted. Perioperative evaluation was done, NSQIP at above average risk, mention in detail below. Pain management. 07/27: Patient has cephalomedullary fixation of right hip with implant. Patient is doing well. Continue PT and OT and pain control. On Eliquis 2.5 mg twice daily for DVT prophylaxis.Will require SNF 07/28: Patient is doing well. Orthopedic surgery follow-up reviewed. Okay for discharge from orthopedic point of view. Follow-up in 2 weeks for george removal and wound check. 2. Mild acute on chronic HFpEF with hypoxia, history of CAD with stenting, hypertension, hyperlipidemia, history of CVA ? Last echo in 10/2022 showed EF 70%, LA enlargement but no diastolic dysfunction, no valvular issues. Chest x-ray on admit with cardiomegaly with vascular congestion and atelectasis at lung bases. Patient on home oxygen as needed in detention but required 4 L at time of admission. She was tapered off oxygen in the morning but changed to 2 L. Echo shows EF 70% with stage I diastolic dysfunction, mild to moderate, anteriorly directed MR, moderate pulmonary hypertension, RVSP 65 mmHg. Moderate TR. In the morning today, patient BP was lower side and looks euvolemic. Patient had 2 doses of 40 mg IV furosemide yesterday. Hold Lasix today and might consider after surgery depending upon the fluid status. 07/27: Blood pressure has improved. Today on furosemide 20 mg daily, increased to 40 mg oral tomorrow a.m. Continue monitor. 07/28: Patient did not had bowel movement yesterday but had on 07/26. Senna S2 tablet twice daily, MiraLAX 17 g p.o. twice daily and Dulcolax suppository ordered. She has history of 3 bowel obstructions which required surgery due to adhesions from previous hysterectomy. No chest pain or shortness of breath. Continue patient's cardiac medications. 3. Acute anemia due to blood loss: Patient baseline hemoglobin about 10.5 g% dropped to 7.3 after surgery. Anemia workup including reticulocyte panel and ferritin ordered. Iron infusion ordered. Preoperative evaluation ? NSQIP score: Patient is at above average risk of any complication answers complication given age, partially dependent functional status, CHF and hypertension. ? Labs/imaging: Hemoglobin and kidney function stable at baseline. No further labs or imaging required preoperatively. Follow-up CBC and BMP postoperatively. ? Cardiac workup: Mild HFpEF exacerbation as noted above. Repeat echocardiogram, BNP and troponins ordered. ? Medications: Okay to continue Lopressor, doxazosin, Lasix and Imdur. Holding Plavix for procedure, will defer to orthopedics on timing of restarting. ? Prior procedural complications: None. ? Recommendation: Recommend holding on procedure until cardiac workup as above has resulted and patient has been optimized from a volume status standpoint. Will keep patient n.p.o. at midnight in case procedure can be done tomorrow afternoon. Resume beta-simon after surgery when oral is allowed. 4. Acute on chronic debility, history of bilateral knee replacements ? PT/OT/case management consulted as above. Lives in [facility], will likely be okay to return there on discharge. 5. Mild chronic anemia ? Hemoglobin stable at baseline 10-11 on admission. 6. Anxiety/depression ? Stable. Continue home bupropion and mirtazapine. 7. GERD ? Continue home PPI. DVT prophylaxis: SCDs CODE STATUS: DNR CCA, DNI Clinical Impression(s) from Imaging Studies Hip/Pelvis X-Ray 07/25/24 15:10 IMPRESSION: Nondisplaced right intertrochanteric fracture of the proximal right femur. Reading Location: [facility] Chest X-Ray 07/25/24 15:15 IMPRESSION: Cardiomegaly and vascular congestion with atelectasis at the lung bases. Reading Location: [facility] Femur X-Ray 07/25/24 17:40 IMPRESSION: Nondisplaced intertrochanteric fracture. Reading Location: [id number] Echocardiogram 07/25/24 22:20 Interpretation Summary Hypermobile atrial septum. Normal LV size. Left ventricular systolic function is normal. The left ventricular ejection fraction is 70 %. Stage 1 diastolic dysfunction. Mild-Moderate (1-2+) anteriorly directed mitral valve insufficiency. Posterior leaflet mitral valve prolapse. Moderate pulmonary hypertension. Charges/Coding Visit Charges Inpatient E&M: 27170 Subs Hosp L2 07/28/24 0800 <Electronically signed by Neymar Cunningham MD> Cosigner Signature (if applicable): CC: ~ Signed [facility] Work Phone: [phone]) 109-769306-19-2025 Progress note Author [facility] Note Date/Time July 28, 2024 3:45 pm [facility] Medical Records Department [address] [place] [address] Progress Note - Orthopedic 07/28/24 0708 MR#: [id number] Acct: [id number] Name: NUKATHERINE Wilber Rep #:[id number] : 1935 89 From: Thanh Mclaughlin DO PCP: Dr. Kam Ocampo SrLeigh, DO Status:A DM IN Location: [place] [address] Subjective Subjective Seen and examined. Pain is better today no other complaints or concerns Objective Data Objective Data Vital Signs: Vital Signs Temp Pulse Resp BP Pulse Ox O2 Del Method O2 Flow Rate 98 F 81 16 141/85 H 98 Nasal Cannula 2 07/28/24 04:03 07/28/24 06:57 07/28/24 06:57 07/28/24 04:03 07/28/24 06:57 07/28/24 06:57 07/28/24 06:57 Oxygen Flow Rate (L/min) 2 Oxygen Delivery Method Nasal Cannula Weight: 107 lb Body Mass Index (BMI) 20.9 Intake & Output: Intake and Output for Last 24 Hours 07/26/24 07/27/24 07/28/24 23:59 23:59 23:59 Intake Total 1000 / 1000 2150 / 2150 Output Total 1350 / 1350 650 / 650 Balance -350 / -350 1500 / 1500 Lab / Micro Data 07/27/24 05:04 07/27/24 05:04 Physical Exam Const alert, oriented x3 and no apparent distress Extremity Extremity Narrative: Right hip dressing clean dry intact. Right lower extremity is neurovascular intact compartments are soft palpable pedal pulses intact sensation light touch she is able to plantarflex and dorsiflex her ankle and toes Assessment & Plan Assessment/Plan (1) Closed intertrochanteric fracture of right hip: QUALIFIERS: Encounter type: initial encounter Fracture alignment:displaced Qualified Code(s): S72.141A - Displaced intertrochanteric fracture ofright femur, initial encounter for closed fracture PLAN: Plan Postop day # right hip cephalomedullary fixation PT OT weightbearing as tolerated SCDs MAURA hose Eliquis 2.5 mg twice daily for 3 weeks postop recommend holding Plavix until completion of Eliquis then may resume Dressing should be undisturbed for 5 days postop. Then she can remove prior to for shower dressing should be changed daily after that point and clean daily with antibacterial soap and warm water Patient has to follow-up in the office 2 weeks for staple removal and wound check Orthopedically stable for discharge 07/28/24 0708 <Electronically signed by Thanh Mclaughlin DO> Cosigner Signature (if applicable): CC: ~ Signed [facility] Work Phone: [phone]) 505-672206-19-2025 Progress note [facility] Medical Records Department [address] [place] [address] Progress Note - Hospitalist 07/28/24 5084 MR#: [id number] Acct: [id number] Name: KATHERINE JUDGE Rep #:[id number] : 1935 89 From: Neymar Herrera PCP: Dr. Kam Ocampo Sr., DO Status:A DM IN Location: [facility] [id number] Reason for Visit Reason for Visit: Diagnoses Acute on chronic diastolic (congestive) heart failure (07/25/24) Displaced intertrochanteric fracture of right femur, initial encounter for closed fracture (07/25/24) Objective Data Objective Data Vital Signs: Vital Signs Temp Pulse Resp BP Pulse Ox O2 Del Method O2 Flow Rate 98 F 81 16 141/85 H 98 Nasal Cannula 2 07/28/24 04:03 07/28/24 06:57 07/28/24 06:57 07/28/24 04:03 07/28/24 06:57 07/28/24 06:57 07/28/24 06:57 Oxygen Flow Rate (L/min) 2 Oxygen Delivery Method Nasal Cannula Weight: 107 lb Body Mass Index (BMI) 20.9 Intake & Output: Intake and Output for Last 24 Hours 07/26/24 07/27/24 07/28/24 23:59 23:59 23:59 Intake Total 1000 / 1000 2150 / 2150 Output Total 1350 / 1350 650 / 650 Balance -350 / -350 1500 / 1500 Lab / Micro Data 07/28/24 06:55 07/27/24 05:04 Labs: Laboratory Results - last 24 hr 07/28/24 06:55: WBC 8.1, RBC 2.24 L, Hgb 7.3 L, Hct 22.1 L, MCV 98.7, MCH 32.6 H, MCHC 33.0, RDW Std Deviation 50.4 H, RDW Coeff of Tamera 14.1, Plt Count 135 L, MPV 9.4, Immature Gran % (Auto) 0.100, Neut % (Auto) 65.7, Lymph % (Auto) 25.1, [place] % (Auto) 5.8, Eos % (Auto) 2.9, Baso % (Auto) 0.4, Absolute Neuts (auto) 5.3, Absolute Lymphs (auto) 2.02, Nucleated RBC % 0 Physical Exam Narrative Seen and examined. Patient had right hip surgery on 07/26/2024. Patient is sleeping. Has bowel movement a day before yesterday. She said she had hysterectomy and then had 3 bowel obstructions due to adhesions which required surgery. Positive fluid balance 1150 mL Patient states that she uses oxygen as needed detention. Uses CPAP diligently at night Blood pressure is acceptable. Physical exam General: Alert, Oriented x3, Cooperative HEENT: Atraumatic, PERRLA, EOMI, Normocephalic. Oral: No Gingival or Mucosal Lesions/ Ulcerations Neck: Supple, No JVD, Negative Carotid Bruits Chest wall/Lungs: Air entry diminished in bilateral lung bases. No crepitation/rhonchi Cardiovascular: Regular rate and rhythm, Normal S1,S2, systolic murmur over cardiac apex and left SSV Abdomen: Bowel Sounds Present, Soft, Non Tender, Non-Distended : No dysuria. No renal angle tenderness. No suprapubic tenderness. Extremities: mild pedal edema, Capillary Refill Less than 3 Seconds Skin: No rashes, No breakdown Musculoskeletal: Right hip surgical dressing is dry. No hematoma or bruise. Left hip and knee not tender. Neurological: Cranial nerves II-XII grossly intact, DTR 2+/4. No acute focal neurological deficit. Psych/Mental Status: Flat affect Assessment & Plan Assessment/Plan (1) Closed intertrochanteric fracture of right hip: QUALIFIERS: Encounter type: initial encounter Fracture alignment:displaced Qualified Code(s): S72.141A - Displaced intertrochanteric fracture ofright femur, initial encounter for closed fracture (2) Acute on chronic heart failure with preserved ejection fraction (HFpEF): PLAN: Plan Patient is an 89-year-old female who presented to [facility] ED on 07/25/2024 with right hip pain after a mechanical fall. 1. Acute debility due to right hip nondisplaced intertrochanteric fracture: Patient is being admitted on MedSurg floor. Hip and pelvis x-rays reviewed and agrees with nondisplaced fracture as mentioned.. Orthopedic surgeon Dr. Mcgillsulted. Patient is going for surgery today. PT and OT consulted. Perioperative evaluation was done, NSQIP at above average risk, mention in detail below. Pain management. 07/27: Patient has cephalomedullary fixation of right hip with implant. Patient is doing well. Continue PT and OT and pain control. On Eliquis 2.5 mg twice daily for DVT prophylaxis.Will require SNF 07/28: Patient is doing well. Orthopedic surgery follow-up reviewed. Okay for discharge from orthopedic point of view. Follow-up in 2 weeks for george removal and wound check. 2. Mild acute on chronic HFpEF with hypoxia, history of CAD with stenting, hypertension, hyperlipidemia, history of CVA ? Last echo in 10/2022 showed EF 70%, LA enlargement but no diastolic dysfunction, no valvular issues. Chest x-ray on admit with cardiomegaly with vascular congestion and atelectasis at lung bases. Patient on home oxygen as needed in detention but required 4 L at time of admission. She was tapered off oxygen in the morning but changed to 2 L. Echo shows EF 70% with stage I diastolic dysfunction, mild to moderate, anteriorly directed MR, moderate pulmonary hypertension, RVSP 65 mmHg. Moderate TR. In the morning today, patient BP was lower side and looks euvolemic. Patient had 2 doses of 40 mg IV furosemide yesterday. Hold Lasix today and might consider after surgery depending upon the fluid status. 07/27: Blood pressure has improved. Today on furosemide 20 mg daily, increased to 40 mg oral tomorrow a.m. Continue monitor. 07/28: Patient did not had bowel movement yesterday but had on 07/26. Senna S2 tablet twice daily, MiraLAX 17 g p.o. twice daily and Dulcolax suppository ordered. She has history of 3 bowel obstructions which required surgery due to adhesions from previous hysterectomy. No chest pain or shortness of breath. Continue patient's cardiac medications. 3. Acute anemia due to blood loss: Patient baseline hemoglobin about 10.5 g% dropped to 7.3 after surgery. Anemia workup including reticulocyte panel and ferritin ordered. Iron infusion ordered. Preoperative evaluation ? NSQIP score: Patient is at above average risk of any complication answers complication given age,partially dependent functional status, CHF and hypertension. ? Labs/imaging: Hemoglobin and kidney function stable at baseline. No further labs or imaging required preoperatively. Follow-up CBC and BMP postoperatively. ? Cardiac workup: Mild HFpEF exacerbation as noted above. Repeat echocardiogram, BNP and troponins ordered. ? Medications: Okay to continue Lopressor, doxazosin, Lasix and Imdur. Holding Plavix for procedure, will defer to orthopedics on timing of restarting. ? Prior procedural complications: None. ? Recommendation: Recommend holding on procedure until cardiac workup as above has resulted and patient has been optimized from a volume status standpoint. Will keep patient n.p.o. at midnight in case procedure can be done tomorrow afternoon. Resume beta-simon after surgery when oral is allowed. 4. Acute on chronic debility, history of bilateral knee replacements ? PT/OT/case management consulted as above. Lives in [facility], will likely be okay to return there on discharge. 5. Mild chronic anemia ? Hemoglobin stable at baseline 10-11 on admission. 6. Anxiety/depression ? Stable. Continue home bupropion and mirtazapine. 7. GERD ? Continue home PPI. DVT prophylaxis: SCDs CODE STATUS: DNR CCA, DNI Clinical Impression(s) from Imaging Studies Hip/Pelvis X-Ray 07/25/24 15:10 IMPRESSION: Nondisplaced right intertrochanteric fracture of the proximal right femur. Reading Location: [facility] Chest X-Ray 07/25/24 15:15 IMPRESSION: Cardiomegaly and vascular congestion with atelectasis at the lung bases. Reading Location: [facility] Femur X-Ray 07/25/24 17:40 IMPRESSION: Nondisplaced intertrochanteric fracture. Reading Location: [id number] Echocardiogram 07/25/24 22:20 Interpretation Summary Hypermobile atrial septum. Normal LV size. Left ventricular systolic function is normal. The left ventricular ejection fraction is 70 %. Stage 1 diastolic dysfunction. Mild-Moderate (1-2+) anteriorly directed mitral valve insufficiency. Posterior leaflet mitral valve prolapse. Moderate pulmonary hypertension. Charges/Coding Visit Charges Inpatient E&M: 57392 Subs Hosp L2 07/28/24 0800 Cosigner Signature (if applicable): CC: ~ Signed [facility]06-18-2025 Progress note Author Neymar Cunningham [facility] Note Date/Time July 27, 2024 5:50 pm [facility] Medical Records Department [address] [place] [address] Progress Note - Hospitalist 07/27/241745 MR#: [id number] Acct: [id number] Name: KATHERINE JUDGE Rep #:[id number] : 1935 89 From: Neymar Herrera PCP: Dr. Kam Ocampo Sr., DO Status:A DM IN Location: [address] Reason for Visit Reason for Visit: Diagnoses Acute on chronic diastolic (congestive) heart failure (07/25/24) Displaced intertrochanteric fracture of right femur, initial encounter for closed fracture (07/25/24) Objective Data Objective Data Vital Signs: Vital Signs Temp Pulse Resp BP Pulse Ox O2 Del Method O2 Flow Rate 98.6 F 88 18 119/54 L 96 Nasal Cannula 2 07/27/24 17:42 07/27/24 17:42 07/27/24 17:42 07/27/24 17:42 07/27/24 17:42 07/27/24 17:42 07/27/24 17:42 Oxygen Flow Rate (L/min) 2 Oxygen Delivery Method Nasal Cannula Weight: 107 lb Body Mass Index (BMI) 20.9 Intake & Output: Intake and Output for Last 24 Hours 07/25/24 07/26/24 07/27/24 23:59 23:59 23:59 Intake Total 1000 / 1000 1750 / 1750 Output Total 1350 / 1350 650 / 650 Balance -350 / -350 1100 / 1100 Lab / Micro Data 07/27/24 05:04 07/27/24 05:04 Labs: Laboratory Results - last 24 hr 07/26/24 19:58: Hgb 9.7 L, Hct 29.3 L 07/27/24 05:04: WBC 10.7, RBC 2.73 L, Hgb 9.0 L, Hct 27.0 L, MCV 98.9, MCH 33.0 H, MCHC 33.3, RDW Std Deviation 51.3 H, RDW Coeff of Tamera 14.2, Plt Count 152, MPV 9.3, Immature Gran % (Auto) 0.400, Neut % (Auto) 88.1 H, Lymph % (Auto) 8.5 L, [place] % (Auto) 2.9, Eos % (Auto) 0.0, Baso % (Auto) 0.1, Absolute Neuts (auto)9.4 H, Absolute Lymphs (auto) 0.91, Nucleated RBC % 0, Sodium 135, Potassium 4.6, Chloride 99, Carbon Dioxide 27.0, Anion Gap 9, BUN 13, Creatinine 0.79, Estim Creat Clear Calc 34.91 L, Est GFR (MDRD) Non-Af 72, BUN/Creatinine Ratio 16.5, Glucose 140 H, Calcium 8.8 Radiography Diagnostic Testing: Radiology Impression Hip X-Ray 07/26/24 15:09 IMPRESSION: As above. Reading Location: [place] [address] Physical Exam Narrative Seen and examined. Patient had right hip surgery yesterday. Doing well, sitting up in the chair. On 2 L of oxygen. Denies shortness of breath. Patient states that she uses oxygen as needed detention. Uses CPAP diligently at night Blood pressure is better. Physical exam General: Alert, Oriented x3, Cooperative HEENT: Atraumatic, PERRLA, EOMI, Normocephalic. Oral: No Gingival or Mucosal Lesions/ Ulcerations Neck: Supple, No JVD, Negative Carotid Bruits Chest wall/Lungs: Air entry diminished in bilateral lung bases. No crepitation/rhonchi Cardiovascular: Regular rate and rhythm, Normal S1,S2, systolic murmur over cardiac apex and left SSV Abdomen: Bowel Sounds Present, Soft, Non Tender, Non-Distended : No dysuria. No renal angle tenderness. No suprapubic tenderness. Extremities: mild pedal edema, Capillary Refill Less than 3 Seconds Skin: No rashes, No breakdown Musculoskeletal: Right proximal femur/hip is tender, flexed and externally rotated. Did not attempt active or passive movement. Left hip and knee not tender. Neurological: Cranial nerves II-XII grossly intact, DTR 2+/4. No acute focal neurological deficit. Psych/Mental Status: Flat affect Assessment & Plan Assessment/Plan (1) Closed intertrochanteric fracture of right hip: QUALIFIERS: Encounter type: initial encounter Fracture alignment:displaced Qualified Code(s): S72.141A - Displaced intertrochanteric fracture ofright femur, initial encounter for closed fracture (2) Acute on chronic heart failure with preserved ejection fraction (HFpEF): PLAN: Plan Patient is an 89-year-old female who presented to [facility] ED on 07/25/2024 with right hip pain after a mechanical fall. 1. Acute debility due to right hip nondisplaced intertrochanteric fracture: [facility] Hip and pelvis x-rays reviewed and agrees with nondisplaced fracture as mentioned.. Orthopedic surgeon Dr. Munroe. Patient is going for surgery today. PT and OT consulted. Perioperative evaluation was done, NSQIP at above average risk, mention in detail below. Pain management. 07/27: Patient has cephalomedullary fixation of right hip with implant. Patient is doing well. Continue PT and OT and pain control. On Eliquis 2.5 mg twice daily for DVT prophylaxis.Will require SNF 2. Mild acute on chronic HFpEF with hypoxia, history of CAD with stenting, hypertension, hyperlipidemia, history of CVA ? Last echo in 10/2022 showed EF 70%, LA enlargement but no diastolic dysfunction, no valvular issues. Chest x-ray on admit with cardiomegaly with vascular congestion and atelectasis at lung bases. Patient on home oxygen as needed in detention but required 4 L at time of admission. She was tapered off oxygen in the morning but changed to 2 L. Echo shows EF 70% with stage I diastolic dysfunction, mild to moderate, anteriorly directed MR, moderate pulmonary hypertension, RVSP 65 mmHg. Moderate TR. In the morning today, patient BP was lower side and looks euvolemic. Patient had 2 doses of 40 mg IV furosemide yesterday. Hold Lasix today and might consider after surgery depending upon the fluid status. 07/27: Blood pressure has improved. Today on furosemide 20 mg daily, increased to 40 mg oral tomorrow a.m. Continue monitor. 3. Preoperative evaluation ? NSQIP score: Patient is at above average risk of any complication answers complication given age, partially dependent functional status, CHF and hypertension. ? Labs/imaging: Hemoglobin and kidney function stable at baseline. No further labs or imaging required preoperatively. Follow-up CBC and BMP postoperatively. ? Cardiac workup: Mild HFpEF exacerbation as noted above. Repeat echocardiogram, BNP and troponins ordered. ? Medications: Okay to continue Lopressor, doxazosin, Lasix and Imdur. Holding Plavix for procedure, will defer to orthopedics on timing of restarting. ? Prior procedural complications: None. ? Recommendation: Recommend holding on procedure until cardiac workup as above has resulted and patient has been optimized from a volume status standpoint. Will keep patient n.p.o. at midnight in case procedure can be done tomorrow afternoon. Resume beta-simon after surgery when oral is allowed. 4. Acute on chronic debility, history of bilateral knee replacements ? PT/OT/case management consulted as above. Lives in [facility], will likely be okay to return there on discharge. 5. Mild chronic anemia ? Hemoglobin stable at baseline 10-11 on admission. 6. Anxiety/depression ? Stable. Continue home bupropion and mirtazapine. 7. GERD ? Continue home PPI. DVT prophylaxis: SCDs CODE STATUS: DNR CCA, DNI Clinical Impression(s) from Imaging Studies Hip/Pelvis X-Ray 07/25/24 15:10 IMPRESSION: Nondisplaced right intertrochanteric fracture of the proximal right femur. Reading Location: [facility] Chest X-Ray 07/25/24 15:15 IMPRESSION: Cardiomegaly and vascular congestion with atelectasis at the lung bases. Reading Location: [facility] Femur X-Ray 07/25/24 17:40 IMPRESSION: Nondisplaced intertrochanteric fracture. Reading Location: [id number] Echocardiogram 07/25/24 22:20 Interpretation Summary Hypermobile atrial septum. Normal LV size. Left ventricular systolic function is normal. The left ventricular ejection fraction is 70 %. Stage 1 diastolic dysfunction. Mild-Moderate (1-2+) anteriorly directed mitral valve insufficiency. Posterior leaflet mitral valve prolapse. Moderate pulmonary hypertension. Charges/Coding Visit Charges Inpatient E&M: 61018 Subs Hosp L2 07/27/24 5116 <Electronically signed by Neymar Cunningham MD> Cosigner Signature (if applicable): CC: ~ Signed [facility] Work Phone: 1(235) 565-719406-18-2025 Progress note [facility] Medical Records Department [address] [place] [address] Progress Note - Hospitalist 07/27/24 1746 MR#: [id number] Acct: [id number] Name: KATHERINE JUDGE Rep #:[id number] : 1935 89 From: Neymar Herrera PCP: Dr. Kam Ocampo Sr., DO Status:A DM IN Location: [place] [address] Reason for Visit Reason for Visit: Diagnoses Acute on chronic diastolic (congestive) heart failure (07/25/24) Displaced intertrochanteric fracture of right femur, initial encounter for closed fracture (07/25/24) Objective Data Objective Data Vital Signs: Vital Signs Temp Pulse Resp BP Pulse Ox O2 Del Method O2 Flow Rate 98.6 F 88 18 119/54 L 96 Nasal Cannula 2 07/27/24 17:42 07/27/24 17:42 07/27/24 17:42 07/27/24 17:42 07/27/24 17:42 07/27/24 17:42 07/27/24 17:42 Oxygen Flow Rate (L/min) 2 Oxygen Delivery Method Nasal Cannula Weight: 107 lb Body Mass Index (BMI) 20.9 Intake & Output: Intake and Output for Last 24 Hours 07/25/24 07/26/24 07/27/24 23:59 23:59 23:59 Intake Total 1000 / 1000 1750 / 1750 Output Total 1350 / 1350 650 / 650 Balance -350 / -350 1100 / 1100 Lab / Micro Data 07/27/24 05:04 07/27/24 05:04 Labs: Laboratory Results - last 24 hr 07/26/24 19:58: Hgb 9.7 L, Hct 29.3 L 07/27/24 05:04: WBC 10.7, RBC 2.73 L, Hgb 9.0 L, Hct 27.0 L, MCV 98.9, MCH 33.0 H, MCHC 33.3, RDW Std Deviation 51.3 H, RDW Coeff of Tamera 14.2, Plt Count 152, MPV 9.3, Immature Gran % (Auto) 0.400, Neut % (Auto) 88.1 H, Lymph % (Auto) 8.5 L, [place] % (Auto) 2.9, Eos % (Auto) 0.0, Baso % (Auto) 0.1, Absolute Neuts (auto)9.4 H, Absolute Lymphs (auto) 0.91, Nucleated RBC % 0, Sodium 135, Potassium 4.6,Chloride 99, Carbon Dioxide 27.0, Anion Gap 9, BUN 13, Creatinine 0.79, Estim Creat Clear Calc 34.91 L, Est GFR (MDRD) Non-Af 72, BUN/Creatinine Ratio 16.5, Glucose 140 H, Calcium 8.8 Radiography Diagnostic Testing: Radiology Impression Hip X-Ray 07/26/24 15:09 IMPRESSION: As above. Reading Location: [place] [address] Physical Exam Narrative Seen and examined. Patient had right hip surgery yesterday. Doing well, sitting up in the chair. On 2 L of oxygen. Denies shortness of breath. Patient states that she uses oxygen as needed detention. Uses CPAP diligently at night Blood pressure is better. Physical exam General: Alert, Oriented x3, Cooperative HEENT: Atraumatic, PERRLA, EOMI, Normocephalic. Oral: No Gingival or Mucosal Lesions/ Ulcerations Neck: Supple, No JVD, Negative Carotid Bruits Chest wall/Lungs: Air entry diminished in bilateral lung bases. No crepitation/rhonchi Cardiovascular: Regular rate and rhythm, Normal S1,S2, systolic murmur over cardiac apex and left SSV Abdomen: Bowel Sounds Present, Soft, Non Tender, Non-Distended : No dysuria. No renal angle tenderness. No suprapubic tenderness. Extremities: mild pedal edema, Capillary Refill Less than 3 Seconds Skin: No rashes, No breakdown Musculoskeletal: Right proximal femur/hip is tender, flexed and externally rotated. Did not attemptactive or passive movement. Left hip and knee not tender. Neurological: Cranial nerves II-XII grossly intact, DTR 2+/4. No acute focal neurological deficit. Psych/Mental Status: Flat affect Assessment & Plan Assessment/Plan (1) Closed intertrochanteric fracture of right hip: QUALIFIERS: Encounter type: initial encounter Fracture alignment:displaced Qualified Code(s): S72.141A - Displaced intertrochanteric fracture ofright femur, initial encounter for closed fracture (2) Acute on chronic heart failure with preserved ejection fraction (HFpEF): PLAN: Plan Patient is an 89-year-old female who presented to [facility] ED on 07/25/2024 with right hip pain after a mechanical fall. 1. Acute debility due to right hip nondisplaced intertrochanteric fracture: Patient is being admitted on [facility] floor. Hip and pelvis x-rays reviewed and agrees with nondisplaced fracture as mentioned.. Orthopedic surgeon Dr. Toddlted. Patient is going for surgery today. PT and OT consulted. Perioperative evaluation was done, NSQIP at above average risk, mention in detail below. Pain management. 07/27: Patient has cephalomedullary fixation of right hip with implant. Patient is doing well. Continue PT and OT and pain control. On Eliquis 2.5 mg twice daily for DVT prophylaxis.Will require SNF 2. Mild acute on chronic HFpEF with hypoxia, history of CAD with stenting, hypertension, hyperlipidemia, history of CVA ? Last echo in 10/2022 showed EF 70%, LA enlargement but no diastolic dysfunction, no valvular issues. Chest x-ray on admit with cardiomegaly with vascular congestion and atelectasis at lung bases. Patient on home oxygen as needed in detention but required 4 L at time of admission. She was tapered off oxygen in the morning but changed to 2 L. Echo shows EF 70% with stage I diastolic dysfunction, mild to moderate, anteriorly directed MR, moderate pulmonary hypertension, RVSP 65 mmHg. Moderate TR. In the morning today, patient BP was lower side and looks euvolemic. Patient had 2 doses of 40 mg IV furosemide yesterday. Hold Lasix today and might consider after surgery depending upon the fluid status. 07/27: Blood pressure has improved. Today on furosemide 20 mg daily, increased to 40 mg oral tomorrow a.m. Continue monitor. 3. Preoperative evaluation ? NSQIP score: Patient is at above average risk of any complication answers complication given age,partially dependent functional status, CHF and hypertension. ? Labs/imaging: Hemoglobin and kidney function stable at baseline. No further labs or imaging required preoperatively. Follow-up CBC and BMP postoperatively. ? Cardiac workup: Mild HFpEF exacerbation as noted above. Repeat echocardiogram, BNP and troponins ordered. ? Medications: Okay to continue Lopressor, doxazosin, Lasix and Imdur. Holding Plavix for procedure, will defer to orthopedics on timing of restarting. ? Prior procedural complications: None. ? Recommendation: Recommend holding on procedure until cardiac workup as above has resulted and patient has been optimized from a volume status standpoint. Will keep patient n.p.o. at midnight in case procedure can be done tomorrow afternoon. Resume beta-simon after surgery when oral is allowed. 4. Acute on chronic debility, history of bilateral knee replacements ? PT/OT/case management consulted as above. Lives in [facility], will likely be okay to return there on discharge. 5. Mild chronic anemia ? Hemoglobin stable at baseline 10-11 on admission. 6. Anxiety/depression ? Stable. Continue home bupropion and mirtazapine. 7. GERD ? Continue home PPI. DVT prophylaxis: SCDs CODE STATUS: DNR CCA, DNI Clinical Impression(s) from Imaging Studies Hip/Pelvis X-Ray 07/25/24 15:10 IMPRESSION: Nondisplaced right intertrochanteric fracture of the proximal right femur. Reading Location: [facility] Chest X-Ray 07/25/24 15:15 IMPRESSION: Cardiomegaly and vascular congestion with atelectasis at the lung bases. Reading Location: [facility] Femur X-Ray 07/25/24 17:40 IMPRESSION: Nondisplaced intertrochanteric fracture. Reading Location: [id number] Echocardiogram 07/25/24 22:20 Interpretation Summary Hypermobile atrial septum. Normal LV size. Left ventricular systolic function is normal. The left ventricular ejection fraction is 70 %. Stage 1 diastolic dysfunction. Mild-Moderate (1-2+) anteriorly directed mitral valve insufficiency. Posterior leaflet mitral valve prolapse. Moderate pulmonary hypertension. Charges/Coding Visit Charges Inpatient E&M: 08749 Subs Hosp L2 07/27/24 1750 Cosigner Signature (if applicable): CC: ~ Signed [facility]06-18-2025 Progress note Author Thanh Mclaughlin [facility] Note Date/Time July 27, 2024 1:28 pm [facility] Medical Records Department [address] [address] Progress Note - Orthopedic 07/27/24 1326 MR#: [id number] Acct: [id number] Name: KATHERINE JUDGE Rep #:[id number] : 1935 89 From: Thanh Mclaughlin DO PCP: Dr. Kam Ocampo Sr., DO Status:A DM IN Location: MS3 [id number] Subjective Subjective Patient seen and examined. She is doing okay her pain is controlled. She complains of some mucus but otherwise no other significant concerns. Objective Data Objective Data Vital Signs: Vital Signs Temp Pulse Resp BP Pulse Ox O2 Del Method O2 Flow Rate 98.7 F 75 18 145/55 H 99 Nasal Cannula 3 07/27/24 07:45 07/27/24 08:57 07/27/24 09:00 07/27/24 08:57 07/27/24 07:45 07/27/24 09:00 07/27/24 12:59 Oxygen Flow Rate (L/min) 3 Oxygen Delivery Method Nasal Cannula Weight: 107 lb Body Mass Index (BMI) 20.9 Intake & Output: Intake and Output for Last 24 Hours 07/25/24 07/26/24 07/27/24 23:59 23:59 23:59 Intake Total 1000 / 1000 1750 / 1750 Output Total 1350 / 1350 650 / 650 Balance -350 / -350 1100 / 1100 Lab / Micro Data 07/27/24 05:04 07/27/24 05:04 Labs: Laboratory Results - last 24 hr 07/26/24 19:58: Hgb 9.7 L, Hct 29.3 L 07/27/24 05:04: WBC 10.7, RBC 2.73 L, Hgb 9.0 L, Hct 27.0 L, MCV 98.9, MCH 33.0 H, MCHC 33.3, RDW Std Deviation 51.3 H, RDW Coeff of Tamera 14.2, Plt Count 152, MPV 9.3, Immature Gran % (Auto) 0.400, Neut % (Auto) 88.1 H, Lymph % (Auto) 8.5 L, [place] % (Auto) 2.9, Eos % (Auto) 0.0, Baso % (Auto) 0.1, Absolute Neuts (auto)9.4 H, Absolute Lymphs (auto) 0.91, Nucleated RBC % 0, Sodium 135, Potassium 4.6, Chloride 99, Carbon Dioxide 27.0, Anion Gap 9, BUN 13, Creatinine 0.79, Estim Creat Clear Calc 34.91 L, Est GFR (MDRD) Non-Af 72, BUN/Creatinine Ratio 16.5, Glucose 140 H, Calcium 8.8 Radiography Diagnostic Testing: Radiology Impression Hip X-Ray 07/26/24 15:09 IMPRESSION: As above. Reading Location: [place] [address] Physical Exam Const alert, oriented x3 and no apparent distress Extremity Extremity Narrative: Right hip dressing clean dry intact. Right lower extremity is neurovascular intact compartments are soft palpable pedal pulses intact sensation light touch she is able to plantarflex and dorsiflex her ankle and toes Assessment & Plan Assessment/Plan (1) Closed intertrochanteric fracture of right hip: QUALIFIERS: Encounter type: initial encounter Fracture alignment:displaced Qualified Code(s): S72.141A - Displaced intertrochanteric fracture ofright femur, initial encounter for closed fracture PLAN: Plan Postop day #1 right hip cephalomedullary fixation PT OT weightbearing as tolerated SCDs MAURA cantrelle Eliquis 2.5 mg twice daily for 3 weeks postop recommend holding Plavix until completion of Eliquis then may resume Dressing should be undisturbed for 5 days postop. Then she can remove prior to for shower dressing should be changed daily after that point and clean daily with antibacterial soap and warm water Patient has to follow-up in the office 2 weeks for staple removal and wound check Orthopedically stable for discharge 07/27/24 1328 <Electronically signed by Thanh Mclaughlin DO> Cosigner Signature (if applicable): CC: ~ Signed [facility] Work Phone: 1(801) 100-209706-18-2025 Progress note [facility] Medical Records Department [address] [place] [address] Progress Note - Orthopedic 07/27/24 1326 MR#: [id number] Acct: [id number] Name: KATHERINE JUDGE Rep #:[id number] : 1935 89 From: Thanh Mclaughlin DO PCP: Dr. Kam Ocampo Sr., DO Status:A DM IN Location: MS3 [id number] Subjective Subjective Patient seen and examined. She is doing okay her pain is controlled. She complains of some mucus but otherwise no other significant concerns. Objective Data Objective Data Vital Signs: Vital Signs Temp Pulse Resp BP Pulse Ox O2 Del Method O2 Flow Rate 98.7 F 75 18 145/55 H 99 Nasal Cannula 3 07/27/24 07:45 07/27/24 08:57 07/27/24 09:00 07/27/24 08:57 07/27/24 07:45 07/27/24 09:00 07/27/24 12:59 Oxygen Flow Rate (L/min) 3 Oxygen Delivery Method Nasal Cannula Weight: 107 lb Body Mass Index (BMI) 20.9 Intake & Output: Intake and Output for Last 24 Hours 07/25/24 07/26/24 07/27/24 23:59 23:59 23:59 Intake Total 1000 / 1000 1750 / 1750 Output Total 1350 / 1350 650 / 650 Balance -350 / -350 1100 / 1100 Lab / Micro Data 07/27/24 05:04 07/27/24 05:04 Labs: Laboratory Results - last 24 hr 07/26/24 19:58: Hgb 9.7 L, Hct 29.3 L 07/27/24 05:04: WBC 10.7, RBC 2.73 L, Hgb 9.0 L, Hct 27.0 L, MCV 98.9, MCH 33.0 H, MCHC 33.3, RDW Std Deviation 51.3 H, RDW Coeff of Tamrea 14.2, Plt Count 152, MPV 9.3, Immature Gran % (Auto) 0.400, Neut % (Auto) 88.1 H, Lymph % (Auto) 8.5 L, [place] % (Auto) 2.9, Eos % (Auto) 0.0, Baso % (Auto) 0.1, Absolute Neuts (auto)9.4 H, Absolute Lymphs (auto) 0.91, Nucleated RBC % 0, Sodium 135, Potassium 4.6,Chloride 99, Carbon Dioxide 27.0, Anion Gap 9, BUN 13, Creatinine 0.79, Estim Creat Clear Calc 34.91 L, Est GFR (MDRD) Non-Af 72, BUN/Creatinine Ratio 16.5, Glucose 140 H, Calcium 8.8 Radiography Diagnostic Testing: Radiology Impression Hip X-Ray 07/26/24 15:09 IMPRESSION: As above. Reading Location: [place] [address] Physical Exam Const alert, oriented x3 and no apparent distress Extremity Extremity Narrative: Right hip dressing clean dry intact. Right lower extremity is neurovascular intact compartments aresoft palpable pedal pulses intact sensation light touch she is able to plantarflex and dorsiflex her ankle and toes Assessment & Plan Assessment/Plan (1) Closed intertrochanteric fracture of right hip: QUALIFIERS: Encounter type: initial encounter Fracture alignment:displaced Qualified Code(s): S72.141A - Displaced intertrochanteric fracture ofright femur, initial encounter for closed fracture PLAN: Plan Postop day #1 right hip cephalomedullary fixation PT OT weightbearing as tolerated SCDs MAURA hose Eliquis 2.5 mg twice daily for 3 weeks postop recommend holding Plavix until completion of Eliquis then may resume Dressing should be undisturbed for 5 days postop. Then she can remove prior to for shower dressing should be changed daily after that point and clean daily with antibacterial soap and warm water Patient has to follow-up in the office 2 weeks for staple removal and wound check Orthopedically stable for discharge 07/27/24 1328 Cosigner Signature (if applicable): CC: ~ Signed [facility]06-17-2025 Radiology Diagnostic study note [facility] Imaging Services [address] [place] [address] Hip Min 2 Views (Portable) MR#: [id number] Acct: [id number] Name: KATHERINE JUDGE Rep #: [id number] : 1935 F 89 From: Brannon Bland MD PCP: Dr. Kam Ocampo Sr., DO Status: A DM IN Study:Hip Min 2 Views (Portable) Date of Exam : 07/26/24 Exam# [id number] Ordering Dr: Thanh Mclaughlin DO PROCEDURE: HIP MIN 2 VIEWS (PORTABLE) 07/26/2024 REASON FOR EXAM: FX REPAIR IN OR TECHNIQUE: Fluoroscopic images of the right hip. COMPARISON: 07/25/2024. FINDINGS: Fluoroscopic images for ORIF of a intertrochanteric right femoral fracture. Fluoroscopic time of 44.2 seconds. 4.90 mGy. See procedure report for full details. RAD/Hip Min 2 Views (Portable) IMPRESSION: As above. Reading Location: [id number] CC: Dr. Kam Ocampo Sr., DO; Dr. Thanh Mclaughlin DO ~ Remotely Piloted Vehicle Controller: Signed [facility]06-17-2025 Consult note Author Rocky Sidhu [facility] Note Date/Time July 26, 2024 6:43 pm [facility] Medical Records Department [address] [place] [address] Anesthesia Postop Eval II 07/26/24 1843 MR#: [id number] Acct: [id number] Name: KATHERINE JUDGE Rep #:[id number] : 1935 89 From: Rocky Sidhu MD PCP: Dr. Kam Ocampo Sr., DO Status:A DM IN Y Race: C Location: [place] [address] Anesthesia Postop Eval I Sum Postop Eval Completion status Anesthesia document: Postop Eval 1 completed: Yes Anesthesia Postop Eval I Summary Anesthesia Postop Eval I Summary: Anesthesia Postop Eval I: Assessment Summary Airway patent Yes 07/26/24 18:33 INSPECTOR SHELLS.DBAK Spontaneous unlabored Yes 07/26/24 18:33 INSPECTOR SHELLS.DBAK respirations Mental status Awake 07/26/24 18:33 INSPECTOR SHELLS.DBAK nausea No 07/26/24 18:33 INSPECTOR SHELLS.DBAK Vomiting No 07/26/24 18:33 INSPECTOR SHELLS.DBAK Anesthesia Postop Eval I: Fluid Summary Crystalloid volume administer 600 07/26/24 18:33 INSPECTOR SHELLS.DBAK (ml) Colloids volume administered ( ml) Blood Product volume administered (ml) Total IV fluid infused 600 07/26/24 18:33 INSPECTOR SHELLS.DBAK Anesthesia Postop Eval I: Summary Notes Anesthesia Complication No 07/26/24 18:33 INSPECTOR SHELLS.DBAK Anesthesia Complication Comment: Post-operative progress note VSS see PACU notes 07/26/24 18:33 INSPECTOR SHELLS.DBAK for detaILS Anesthesia: Postop Eval II Evaluation Mental status: Awake Pain Level: 0 nausea: No Vomiting: No Complications Anesthesia Complication: No 07/26/24 1843 <Electronically signed by Rocky Sidhu MD> Date _ Rocky Sidhu MD Cosigner Signature: Date CC: ~ Signed [facility] Work Phone: 1(821) 194-280506-17-2025 Consult note Author Florentin Clemens [facility] Note Date/Time July 26, 2024 6:33 pm [facility] Medical Records Department [address] [place] [address] Anesthesia Postop Eval I 07/26/24 1832 MR#: [id number] Acct: [id number] Name: NUKATEHRINE N Rep #:[id number] : 1935 89 From: Florentin Cameron INSPECTOR SHELLS PCP: Dr. Kam Ocampo Sr., DO Status:A DM IN Y Race: C Location: [place] [address] Anesthesia: Postop Eval I Current Vital Signs Temperature: 97.7 F Pulse Rate: 100 Blood Pressure: 151/61 Respiratory Rate: 24 Pulse Ox: 100 Oxygen Delivery Method: Non-Rebreather Oxygen Flow Rate (L/min): 15 Assessment Airway patent: Yes Spontaneous unlabored respirations: Yes Mental status: Awake nausea: No Vomiting: No Anesthesia Complication: No Fluid Hydration Crystalloid volume administer (ml): 600 Total IV fluid infused: 600 Progress Note Post-operative progress note: VSS see PACU notes for detaILS Anesthesia document: Postop Eval 1 completed: Yes 07/26/24 183 <Electronically signed by Florentin Clemens II, CRNA> Date _ Florentin Clemens II INSPECTOR SHELLS Cosigner Signature: Date CC: ~ Signed [facility] Work Phone: [phone] 366-454806-17-2025 Consult note [facility] Medical Records Department [address] [place] [address] Anesthesia Postop Eval II 07/26/24 184 MR#: [id number] Acct: [id number] Name: KATHERINE JUDGE Wilber Rep #:[id number] : 1935 89 From: Rocky Sidhu MD PCP: Dr. Kam Ocampo Sr., DO Status:A DM IN Y Race: C Location: [place] [address] Anesthesia Postop Eval I Sum Postop Eval Completion status Anesthesia document: Postop Eval 1 completed: Yes Anesthesia Postop Eval I Summary Anesthesia Postop Eval I Summary: Anesthesia Postop Eval I: Assessment Summary Airway patent Yes 07/26/24 18:33 INSPECTOR SHELLS.DBAK Spontaneous unlabored Yes 07/26/24 18:33 INSPECTOR SHELLS.DBAK respirations Mental status Awake 07/26/24 18:33 INSPECTOR SHELLS.DBAK nausea No 07/26/24 18:33 INSPECTOR SHELLS.DBAK Vomiting No 07/26/24 18:33 INSPECTOR SHELLS.DBAK Anesthesia Postop Eval I: Fluid Summary Crystalloid volume administer 600 07/26/24 18:33 INSPECTOR SHELLS.DBAK (ml) Colloids volume administered ( ml) Blood Product volume administered (ml) Total IV fluid infused 600 07/26/24 18:33 INSPECTOR SHELLS.DBAK Anesthesia Postop Eval I: Summary Notes Anesthesia Complication No 07/26/24 18:33 INSPECTOR SHELLS.DBAK Anesthesia Complication Comment: Post-operative progress note VSS see PACU notes 07/26/24 18:33 INSPECTOR SHELLS.JESSICA for detaILS Anesthesia: Postop Eval II Evaluation Mental status: Awake Pain Level: 0 nausea: No Vomiting: No Complications Anesthesia Complication: No 07/26/24 1843 MD> Date _ Rocky Sidhu MD Cosigner Signature: Date CC: ~ Signed [facility]06-17-2025 Consult note Author Rocky Nahum [facility] Note Date/Time July 26, 2024 4:41 pm [facility] Medical Records Department [address] [place] [address] Pre-Anesthesia Evaluation 07/26/24 1622 MR#: [id number] Acct: [id number] Name: KATHERINE JUDGE Rep #:[id number] : 1935 89 From: Rocky Sidhu MD PCP: Dr. Kam Ocampo Sr., DO Status:A DM IN Y Race: C Location: [place] [address] ASA Classification* ASA Classification ASA Classification: 4 and E (HFpEF with hypoxia, requiring O2, HTN, HLD, historyof CVA) Assessment & Plan Anesthesia* Anesthesia Assessment Anesthesia Assessment: Discussed sedation and/or anesthesia options, risks, benefits, and alternatives with patient/parents/legal guardian/POA. Questions invited. The patient/parents/legal guardian/POA seems to understand and agrees to proceedwith anesthesia plan. Reviewed the physical assessment, medical history, allergy history and patient home medications list prior to surgery/procedure/anesthetic and documented any changes. Performed airway and anesthesia risk assessments. As per hospitalist: Mild acute on chronic HFpEF with hypoxia, history of CAD with stenting, hypertension, hyperlipidemia, history of CVA ? Last echo in 10/2022 showed EF 70%, LA enlargement but no diastolic dysfunction, no valvular issues. Chest x-ray on admit with cardiomegaly with vascular congestion and atelectasis at lung bases. Patient on home oxygen as needed in detention but required 4 L at time of admission. She was tapered off oxygen in the morning but changed to 2 L. Echo shows EF 70% with stage I diastolic dysfunction, mild to moderate, anteriorly directed MR, moderate pulmonary hypertension, RVSP 65 mmHg. Moderate TR. In the morning today, patient BP was lower side and looks euvolemic. Patient had 2 doses of 40 mg IV furosemide yesterday. Hold Lasix today and might consider after surgery depending upon the fluid status. Discussed patient's increased risk of complications due to her recent SOB, patient verbalized understanding and agreed to proceed. Anesthesia Type Anesthesia Type: General History Source History Obtained from:: Patient and Chart Anesthesia Focused Assessment* Temperature: 97.6 F Pulse Rate: 80 Blood Pressure: 145/64 Respiratory Rate: 19 Pulse Ox: 95 Oxygen Delivery Method: Nasal Cannula Oxygen Flow Rate (L/min): 2 Airway Assessment Mouth opens: >3 cm Mallampati Score: II Teeth Condition: Intact Neck Range of motion (ROM): Full ROM Labs Anesthesia Preop lab: CBC WBC 8.9 K/mm3 (4.4-11.0) 07/26/24 02:43 07/26/24 RBC 3.01 M/mm3 (4.2-5.4) L 07/26/24 02:43 07/26/24 Hgb 10.0 g/dL (12.0-15.0) L 07/26/24 02:43 5 Hct 29.0 % (37-47) L 07/26/24 02:43 07/26/24 Plt Count 171 K/mm3 (150-450) 07/26/24 02:43 07/26/24 CHEMISTRY Potassium 4.4 mmol/L (3.3-5.1) 07/26/24 02:43 07/26/24 Sodium 135 mmol/L (133-145) 07/26/24 02:43 07/26/24 BUN 12 mg/dL (4-19) 07/26/24 02:43 07/26/24 Creatinine 0.90 mg/dL (0.70-1.20) 07/26/24 02:43 07/26/24 Glucose 151 mg/dL (70-99) H 07/26/24 02:43 07/26/24 TSH 2.060 uIU/mL (0.300-4.200) 07/26/24 02:43 07/10 09/02 COAG PT 13.0 SECONDS (11.7-14.9) 07/25/24 14:35 Pre-Assessment Diagnosis/Proposed Procedure Planned Operative Procedure(s): Femur nailing (see ortho note) Anesthesia History Anesthesia History - plate driller: Anesthesia History - plate driller Hx Hospitalization Any Problems With Anesthesia No 07/26/24 03:31 Cholinesterase deficiency No 07/26/24 03:31 You/Your Family Experience No 07/26/24 03:31 fever (hyperthermia) with Relationship Recent Exposure to Contagious No 07/26/24 03:31 Disease Does patient have nerve No 07/26/24 03:31 stimulator Patient instructed to have No 07/26/24 03:31 device shut off --Does patient have Pacemaker No 07/26/24 13:46 or ICD? When Was Last Pacemaker Check QUESTION #4 FULL TEXT: You/Your Family Experience fever (hyperthermia) with Anesthesia Last Oral Intake Last Oral intake: Last Oral Intake NPO since 00:00 07/26/24 13:46 Meds taken in AM with sips of Yes 07/26/24 13:46 water? Meds patient instructed to oxycodone 07/26/24 13:46 take am of surgery PONV PONV - plate driller: PONV - plate driller Female HX of Motion Sickness HX of N/V After Surgery Non-Smoker Duration of Surgery greater than 60 minutes Number of Risk Factors PONV Score Height & Weight Height & Weight: Anesthesia: Height & Weight Height 5 ft 07/26/24 13:46 Weight: 48.534 kg 07/26/24 13:46 Body Mass Index (BMI) 20.9 07/26/24 13:46 Respiratory Assessment Respiratory Assessment - plate driller: Respiratory Tract Infection Hx - plate driller Hx Respiratory Tract Infection No 07/26/24 03:31 STOP Sleep Apnea STOP Sleep Apnea - plate driller: STOP Sleep Apnea - plate driller Hx Hypertension Yes 07/25/24 18:26 Hx Sleep Apnea Yes 06/16/25 18:26 CPAP Yes 07/25/24 18:26 BIPAP No 07/25/24 18:26 Do you snore loudly (louder than talking or can be heard Do you often feel tired/ fatigued/ sleepy during daytime? Has anyone observed you stop breathing during sleep? STOP Results Positive 07/25/24 18:26 QUESTION #5 FULL TEXT : Do you snore loudly (louder than talking or can be heard through closed doors)? Tobacco Use History Tobacco Use History - plate driller: Tobacco Use History - plate driller Tobacco Use Smoking Status Never smoker 07/25/24 18:26 Hx Tobacco Use No 07/25/24 18:26 Years Smoking Packs Smoked per Day Smoking Cessation Date was No - quit smoking greater 07/25/24 18:26 within the last 15 years than 15 years ago Hx Smoking Cessation Date Hx Smoking Cessation Counseling Hematologic Medial History Hematologic Hx - plate driller: Hematologic Medical Hx - chief information officer Hx of Blood Transfusion Yes 07/25/24 18:26 Hx of Transfusion in last 3 No 07/25/24 18:26 Months Date of Last Transfusion (if within last 3 months) Ever experience any problems No 07/25/24 18:26 with transfusion(s)? Specify any problems Hx of Preganancy in last 3 No 07/25/24 18:26 Months Nurse Filling Out Transfusion [id number] 07/25/24 18:26 & Questions: Date: 07/25/24 07/25/24 18:26 Time: 18:35 07/25/24 18:26 Patient unable to answer at this time (ie. confused, unrespo /Reproduction History /Reproductive History - plate driller: /Reproductive Hx- plate driller Hx Now No 07/26/24 03:31 Gestational Age (in weeks): EDC: Hx Hx Para Hx Section SAB No 07/26/24 03:31 Active Medications Active Medications: Current Medications Generic Name Dose Route Start Last Admin Trade Name Freq PRN Reason Stop Dose Admin Acetaminophen 1,000 mg 07/25/24 22:00 07/26/24 13:49 Acetaminophen 500 Mg Tablet PO Not Given Q8 HUMBERTO Albuterol Sulfate 2.5 mg 07/26/24 00:00 07/26/24 11:05 Albuterol 2.5 Mg/3 Ml Vial.Neb. INHALATION 2.5 mg Q4HWA.RT HUMBERTO Administration Atorvastatin Calcium 40 mg 07/25/24 22:00 07/25/24 22:24 Atorvastatin Calcium 40 Mg Tablet PO 40 mg QHS HUMBERTO Administration Bupropion HCl 150 mg 07/26/24 10:00 07/26/24 09:14 Bupropion (Xl) 150 Mg Tablet.Xl PO Not Given DAILY HUMBERTO Doxazosin Mesylate 2 mg 07/26/24 10:00 07/26/24 09:13 Doxazosin 1 Mg Tablet PO Not Given DAILY HUMBERTO Furosemide 20 mg 07/26/24 10:00 07/26/24 08:23 Furosemide 20 Mg Tablet PO Not Given DAILY HUMBERTO Protocol Hydromorphone HCl 0.5 mg 07/25/24 20:49 07/25/24 22:16 Hydromorphone 0.5 Mg/0.5 Ml Syringe IV 0.5 mg Q4H PRN PRN Administration Pain Score 6-10 Sodium Chloride 250 mls @ 15 mls/hr 07/25/24 18:28 IV .[id number] PRN Saline Flush Sodium Chloride 250 mls @ 15 mls/hr 07/25/24 18:28 IV .[id number] PRN Additional IVPB Infusion Lactated Ringer's 1,000 mls @ 15 mls/hr 07/26/24 15:45 IV .Q48H HUMBERTO Vancomycin HCl 1,000 mg in 200 mls @ 200 mls/hr 07/26/24 15:57 Vancomycin IV 07/26/24 16:56 PREOP ONE Isosorbide Mononitrate 30 mg 07/26/24 10:00 Isosorbide Mononitrate 30 Mg Tablet PO DAILY HUMBERTO Protocol Loratadine 10 mg 07/26/24 10:00 07/26/24 08:23 Loratadine 10 Mg Tablet PO Not Given DAILY HUMBERTO Melatonin 3 mg 07/25/24 22:00 Melatonin 3 Mg Tablet PO QHS PRN PRN INSOMNIA Metoprolol Tartrate 25 mg 07/25/24 22:00 07/26/24 09:13 Metoprolol Tartrate 25 Mg Tablet PO Not Given BID HUMBERTO Protocol Mirtazapine 30 mg 07/25/24 22:00 07/25/24 22:25 Mirtazapine 30 Mg Tablet PO 30 mg QHS HUMBERTO Administration Montelukast Sodium 10 mg 07/26/24 10:00 07/26/24 08:23 Montelukast 10 Mg Tablet PO Not Given DAILY HUMBERTO Multivitamins 1 tablet 07/26/24 08:00 07/26/24 08:23 Multivitamins,Therapeutic Tablet PO Not Given DAILYCM [facility] Ondansetron HCl 4 mg 07/25/24 18:26 07/26/24 12:31 Ondansetron 4 Mg/2 Ml Vial IV 4 mg Q8H PRN PRN Administration NAUSEA/VOMITING Oxycodone HCl 5 mg 07/25/24 18:26 07/26/24 10:54 Oxycodone 5 Mg Tablet PO 5 mg Q4H PRN PRN Administration Pain Score 6-10 Pantoprazole Sodium 40 mg 07/26/24 10:00 07/26/24 08:23 Pantoprazole Sodium 40 Mg Tablet PO Not Given DAILY [facility] Potassium Chloride 20 meq 07/26/24 10:00 07/26/24 08:23 Potassium Chloride Oral Tablet 20 Meq PO Not Given DAILY [facility] Senna/Docusate Sodium 1 tablet 07/26/24 22:00 Senna/Docusate Sodium 1 Tablet PO BID [facility] Sodium Chloride 10 - 40 ml 07/25/24 18:28 07/26/24 12:31 0.9% Saline Lock 10 Ml Syringe IV 10 ml UD PRN Administration SALINE FLUSH PFS Medical History Polyneuropathy PVD (peripheral vascular disease) Osteoporosis Hypothyroidism GERD (gastroesophageal reflux disease) Hypertensive heart and chronic kidney disease stage 3 Anxiety Asthma Sleep apnea COPD (chronic obstructive pulmonary disease) Gout CKD (chronic kidney disease) stage 3, GFR 30-59 ml/min Major depressive disorder CHF (congestive heart failure) Home Medications ?Medication ?Instructions ?Recorded ?Last Taken ?Type acetaminophen 500 mg tablet 500 mg PO BID [ain 5 Unknown History atorvastatin 40 mg tablet 40 mg PO DAILY hyperlipidemi a 07/25/24 Unknown History azelastine 137 mcg (0.1 %) nasal intranasal allergies 07/25/24 Unknown History spray budesonide 0.5 mg/2 mL suspension mg surgical endoscopist 07/25/24 Unkn own History for nebulization bupropion HCl 150 mg 24 hr tablet, 150 mg PO DAILY . 0 07/25/24 Unknown History extended release calcium carbonate PO . 07/25/24 Unknown Histor y cetirizine 5 mg tablet 5 mg PO DAILY . 07/25/24 Unk nown History clopidogrel 75 mg tablet 75 mg PO DAILY . 07/25/24 Un known History dicyclomine 10 mg capsule 10 mg PO TID . 07/25/24 Unkn own History doxazosin 2 mg tablet 2 mg PO DAILY . 07/25/24 Unk nown History furosemide 20 mg tablet 20 mg PO DAILY . 07/25/24 Un known History gabapentin 100 mg capsule PO . 07/25/24 Unknown Histor y ipratropium 0.5 mg-albuterol 3 mg ml . 07/25/24 Unknow n History (2.5 mg base)/3 mL nebulization soln isosorbide mononitrate 30 mg 30 mg PO DAILY . 07/25/24 Unknown History tablet,extended release 24 hr metoprolol tartrate 25 mg tablet 25 mg PO BID . Unknown History mirtazapine 30 mg tablet 30 mg PO QHS . 07/25/24 Unkn own History montelukast 10 mg tablet 10 mg PO DAILY . 07/25/24 Un known History multivitamin with folic acid 400 1 tab PO DAILY . 07/10 08/03 Unknown History mcg tablet (Daily-Carmelo (with folic acid)) pantoprazole 40 mg tablet,delayed 40 mg PO DAILY . Unknown History release potassium chloride 20 mEq 20 meq PO DAILY . 07/25/24 U nknown History tablet,extended release(part/cryst) sennosides 8.6 mg-docusate sodium 1 tab PO DAILY . Unknown History 50 mg tablet (Senexon-S) Allergy/AdvReac Type Severity Reaction Status Date / [...] Verified 07/25/24 14:52 OF REACTION Surgical History History of cataract surgery History of lysis of adhesions Hx of hysterectomy Hx of total knee replacement Presence of aortocoronary bypass graft Social History Smoking Status: Never smoker Review of Systems (Anesthesia) ROS Narrative System reviewed and no additional complaints, except as documented. Physical Exam Const alert, oriented x3 and average body habitus Resp normal respiratory effort, normal air movement and clear to auscultation bilaterally Cardio regular rate, regular rhythm, no murmurs and diaphoretic 07/26/24 1641 <Electronically signed by Rocky Sidhu MD> Date _ Rocky Sidhu MD Cosigner Signature: Date CC: ~ Signed [facility] Work Phone: 1(485) 638-779106-17-2025 Consult note [facility] Medical Records Department [address] [place] [address] Anesthesia Postop Eval I 07/26/24 1832 MR#: [id number] Acct: [id number] Name: KATHERINE JUDGE Wilber Rep #:[id number] : 1935 89 From: Florentin Cameron INSPECTOR SHELLS PCP: Dr. Kam Ocampo Sr., DO Status:A DM IN Y Race: C Location: [place] [address] Anesthesia: Postop Eval I Current Vital Signs Temperature: 97.7 F Pulse Rate: 100 Blood Pressure: 151/61 Respiratory Rate: 24 Pulse Ox: 100 Oxygen Delivery Method: Non-Rebreather Oxygen Flow Rate (L/min): 15 Assessment Airway patent: Yes Spontaneous unlabored respirations: Yes Mental status: Awake nausea: No Vomiting: No Anesthesia Complication: No Fluid Hydration Crystalloid volume administer (ml): 600 Total IV fluid infused: 600 Progress Note Post-operative progress note: VSS see PACU notes for detaILS Anesthesia document: Postop Eval 1 completed: Yes 07/26/241832 II INSPECTOR SHELLS> Date _ Florentin Clemens II INSPECTOR SHELLS Cosigner Signature: Date CC: ~ Signed [facility]06-17-2025 Procedure note [facility] Medical Records Department [address] [place] [id number] Operative Report 07/26/24 1818 MR#: [id number] Acct: [id number] Name: KATHERINE JUDGE Wilber Rep #:[id number] : 1935 89 From: Thanh Mclaughlin DO PCP: Dr. 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: No Type of Anesthesia: General RN Documented Start/Stop Times: Operation Date: 07/26/24 16:15 Case Time Into Pre-Op 07/26/24 15:29 Anesthesia Start 07/26/24 16:37 Into Room 07/26/24 16:37 Procedure Start 07/26/24 17:27 Procedure End 07/26/24 18:00 Procedure Start Time: 17:27 Procedure Stop Time: 18:00 Select all DRAINS/GRAFTS/IMPLANTS that apply: Prosthetic device Prosthetic device details: Synthes short TFN size 10 Estimated Blood Loss: 10 Specimen collected: No Description of surgery: Preoperative diagnosis: Right hip intertrochanteric femur fracture Postoperative diagnosis: Same Procedure: Cephalo-medullary fixation right hip Implants: Synthes short nail 130 deg 10 mm diameter 90 mm helical blade 32 mm screw Anesthesia: General EBL: 10 Complications: None Condition: Stable to PACU Indication for procedure: 89-year-old female patient with ground-level fall sustaining injury to hip. Fracture demonstrated intertrochanteric femur fracture pattern. Risk benefits and alternatives were reviewed including risk of bleeding infection nerve, artery, bone, tissue damage, blood clot needfor further surgery and continued pain. Procedure: Patient met in the preoperative holding area once again the operativeextremity was identified by both patient and physician and was marked. Patient was met by anesthesia and IV was started. patient was brought back to the to the operating room anesthesia was started. Patient was then positioned on the fracture table all bony prominences were well-padded. patient was then positioned with abduction internal rotation and traction and fluoroscopy was brought in to ensure that an adequate reduction could be performed. Patient wasthen prepped and draped in usual sterile fashion and timeout was called to ensure the proper patient procedure and extremity were being contemplated. Fluoroscopy was used to altagracia the tip of the greater trochanter and a 3 fingerbreadth incision was made 2 finger breaths proximal to the tip of the greater trochanter. Was carried carried down through the skin and subcutaneous tissue as well as the gluteal fascia. Guidepin was then inserted through the tip of the greater trochanter directed towards the level of lesser trochanter this was checked in both AP and lateral projections. An opening reamer was performed. Following this was the insertion of the nail the appropriate height jig was used and a triple trocar sleeve was advanced to the skin and a stab incision was made at the trocar was inserted to the level of the bone and a guidepin was placed into the femoral neck and head checked on both AP and lateral projections. This was then measured and appropriately sized helical blade was inserted the nail was locked proximally the fracture was compressed and a locking screw was placed distally the same incision was extended slightly distally to allow the insertion of the trocar for the transverse screw. This was then drilled and measured underfluoroscopy and the appropriate size screw was inserted. Final AP and lateral projections were saved to the PACS system ofthe entire construct the wounds were thoroughly irrigated the fascia was closed with #1 [id number] Vicryls followed by 2-0 Vicryl in the subcutaneous tissues followed by george in the skin. 0.5% Marcaine with epinephrine was injected into the subcutaneous tissues dressing was applied form of Xeroform 4 x4 ABD and Ioban tape. Patient tolerated procedure well there is nointraoperative complications and was brought back to the PACU in stable condition. Surgical Findings: Intertrochanteric femur fracture Complications Complications: No 07/26/24 1820 Cosigner Signature (if applicable): CC: Dr. Hayden Diaz, DO; Dr. Kam Ocampo Sr., DO; Dr. Thanh Mclaughlin, DO~ Signed [facility]-17[facility]2025 Progress note Author Neymar Cunningham [facility] Note Date/Time July 26, 2024 3:30 pm [facility] Medical Records Department [address] [place] [address] Progress Note - Hospitalist 07/26/24 1018 MR#: [id number] Acct: [id number] Name: KATHERINE JUDGE Rep #:[id number] : 1935 89 From: Neymar Herrera PCP: Dr. Kam Ocampo Sr., DO Status:A DM IN Location: DC3 [id number] Reason for Visit Reason for Visit: Diagnoses Acute on chronic diastolic (congestive) heart failure (07/25/24) Displaced intertrochanteric fracture of right femur, initial encounter for closed fracture (07/25/24) Objective Data Objective Data Vital Signs: Vital Signs Temp Pulse Resp BP Pulse Ox O2 Del Method O2 Flow Rate 97.6 F L 76 18 100/50 L 97 Nasal Cannula 3 07/26/24 08:26 07/26/24 08:26 07/26/24 08:26 07/26/24 08:26 07/26/24 08:26 07/26/24 08:26 07/26/24 08:26 Oxygen Flow Rate (L/min) 3 Oxygen Delivery Method Nasal Cannula Weight: 107 lb Body Mass Index (BMI) 20.9 Intake & Output: Intake and Output for Last 24 Hours 07/24/24 07/25/24 07/26/24 23:59 23:59 23:59 Intake Total 200 / 200 Output Total 800 / 800 Balance -600 / -600 Lab / Micro Data 07/26/24 02:43 07/26/24 02:43 Labs: Laboratory Results - last 24 hr 07/25/24 14:35: WBC 7.6, RBC 3.28 L, Hgb 10.7 L, Hct 31.6 L, MCV 96.3, MCH 32.6 H, MCHC 33.9, RDW Std Deviation 49.4 H, RDW Coeff of Tamera 14.1, Plt Count 181, MPV 9.1, Immature Gran % (Auto) 0.400, Neut % (Auto) 69.2, Lymph % (Auto) 22.9, [place] % (Auto) 6.2, Eos % (Auto) 0.9, Baso % (Auto) 0.4, Absolute Neuts (auto) 5.3, Absolute Lymphs (auto) 1.75, Nucleated RBC % 0, PT 13.0, INR 1.0, APTT 27.1, Sodium 134, Potassium 5.0, Chloride 98, Carbon Dioxide 26.5, Anion Gap 9, BUN 13, Creatinine 0.92, Est GFR (MDRD) Non-Af 60, BUN/Creatinine Ratio 13.5, Glucose 126 H, Calcium 8.8 07/25/24 19:00: Urine Color Straw, Urine Clarity Clear, Urine pH 8.0, Ur Specific Sulphur 1.010, Urine Protein 30 H, Urine Glucose (UA) Normal, Urine Ketones Negative, Urine Occult Blood 10 H, Urine Nitrite Negative, Urine Bilirubin Negative, Urine Urobilinogen Normal, Ur Leukocyte Esterase Negative, Urine RBC 0-5 SEEN, Urine WBC 0-5 SEEN, Ur Squamous Epith Cells 0-5 SEEN, Ur Transition Epith Cell 0-5 SEEN, Urine Bacteria 0 SEEN, Urine Mucus 0 SEEN 07/25/24 22:30: Troponin T High Sens 24 H, NT pro BNP II 538 07/26/24 00:19: Troponin T Hi Sens 2 Hr 27 H 07/26/24 02:43: WBC 8.9, RBC 3.01 L, Hgb 10.0 L, Hct 29.0 L, MCV 96.3, MCH 33.2 H, MCHC 34.5, RDW Std Deviation 49.8 H, RDW Coeff of Tamera 14.1, Plt Count 171, MPV 8.9, Sodium 135, Potassium 4.4, Chloride 99, Carbon Dioxide 28.3, Anion Gap 8, BUN 12, Creatinine 0.90, Estim Creat Clear Calc 31.04 L, Est GFR (MDRD) Non-Af 61, BUN/Creatinine Ratio 12.8, Glucose 151 H, Calcium 8.9, Troponin T Hi [id number] 25 H, TSH 2.060, Blood Type O POSITIVE, Antibody Screen NEGATIVE Radiography Diagnostic Testing: Radiology Impression Hip/Pelvis X-Ray 07/25/24 15:10 IMPRESSION: Nondisplaced right intertrochanteric fracture of the proximal right femur. Reading Location: [facility] Chest X-Ray 07/25/24 15:15 IMPRESSION: Cardiomegaly and vascular congestion with atelectasis at the lung bases. Reading Location: [facility] Femur X-Ray 07/25/24 17:40 IMPRESSION: Nondisplaced intertrochanteric fracture. Reading Location: [id number] Echocardiogram 07/25/24 22:20 Interpretation Summary Hypermobile atrial septum. Normal LV size. Left ventricular systolic function is normal. The left ventricular ejection fraction is 70 %. Stage 1 diastolic dysfunction. Mild-Moderate (1-2+) anteriorly directed mitral valve insufficiency. Posterior leaflet mitral valve prolapse. Moderate pulmonary hypertension. Ordering Physician: Hayden Diaz Referring Physician: Kam Ocampo Performed By: Celeste Gore, YUKI, RVT Physical Exam Const Constitutional Narrative: Seen and examined. Patient states that she uses oxygen as needed detention. Uses CPAP diligently at night. Denies chest pain or shortness of breath. Pulse ox 97% on3 L of oxygen but she was tapered off. She had 2 doses of Lasix 40 mg yesterday. And I think she is euvolemic in the morning today therefore does notneed further Lasix today and also going for surgery therefore avoid diuretics today. BP was also low 100/40 in the morning to noon time Physical exam General: Alert, Oriented x3, Cooperative HEENT: Atraumatic, PERRLA, EOMI, Normocephalic. Oral: No Gingival or Mucosal Lesions/ Ulcerations Neck: Supple, No JVD, Negative Carotid Bruits Chest wall/Lungs: Air entry diminished in bilateral lung bases. No crepitation/rhonchi Cardiovascular: Regular rate and rhythm, Normal S1,S2, systolic murmur over cardiac apex and left SSV Abdomen: Bowel Sounds Present, Soft, Non Tender, Non-Distended : No dysuria. No renal angle tenderness. No suprapubic tenderness. Extremities: mild pedal edema, Capillary Refill Less than 3 Seconds Skin: No rashes, No breakdown Musculoskeletal: Right proximal femur/hip is tender, flexed and externally rotated. Did not attempt active or passive movement. Left hip and knee not tender. Neurological: Cranial nerves II-XII grossly intact, DTR 2+/4. No acute focal neurological deficit. Psych/Mental Status: Flat affect Assessment & Plan Assessment/Plan (1) Closed intertrochanteric fracture of right hip: QUALIFIERS: Encounter type: initial encounter Fracture alignment:displaced Qualified Code(s): S72.141A - Displaced intertrochanteric fracture ofright femur, initial encounter for closed fracture (2) Acute on chronic heart failure with preserved ejection fraction (HFpEF): PLAN: Plan Patient is an 89-year-old female who presented to [facility] ED on 07/25/2024 with right hip pain after a mechanical fall. 1. Acute debility due to right hip nondisplaced intertrochanteric fracture: [facility] Hip and pelvis x-rays reviewed and agrees with nondisplaced fracture as mentioned.. Orthopedic surgeon Dr. Mendozaed. Patient is going for surgery today. PT and OT consulted. Perioperative evaluation was done, NSQIP at above average risk, mention in detail below. Pain management. 2. Mild acute on chronic HFpEF with hypoxia, history of CAD with stenting, hypertension, hyperlipidemia, history of CVA ? Last echo in 10/2022 showed EF 70%, LA enlargement but no diastolic dysfunction, no valvular issues. Chest x-ray on admit with cardiomegaly with vascular congestion and atelectasis at lung bases. Patient on home oxygen as needed in detention but required 4 L at time of admission. She was tapered off oxygen in the morning but changed to 2 L. Echo shows EF 70% with stage I diastolic dysfunction, mild to moderate, anteriorly directed MR, moderate pulmonary hypertension, RVSP 65 mmHg. Moderate TR. In the morning today, patient BP was lower side and looks euvolemic. Patient had 2 doses of 40 mg IV furosemide yesterday. Hold Lasix today and might consider after surgery depending upon the fluid status. 3. Preoperative evaluation ? NSQIP score: Patient is at above average risk of any complication answers complication given age, partially dependent functional status, CHF and hypertension. ? Labs/imaging: Hemoglobin and kidney function stable at baseline. No further labs or imaging required preoperatively. Follow-up CBC and BMP postoperatively. ? Cardiac workup: Mild HFpEF exacerbation as noted above. Repeat echocardiogram, BNP and troponins ordered. ? Medications: Okay to continue Lopressor, doxazosin, Lasix and Imdur. Holding Plavix for procedure, will defer to orthopedics on timing of restarting. ? Prior procedural complications: None. ? Recommendation: Recommend holding on procedure until cardiac workup as above has resulted and patient has been optimized from a volume status standpoint. Will keep patient n.p.o. at midnight in case procedure can be done tomorrow afternoon. Resume beta-simon after surgery when oral is allowed. 4. Acute on chronic debility, history of bilateral knee replacements ? PT/OT/case management consulted as above. Lives in [facility], will likely be okay to return there on discharge. 5. Mild chronic anemia ? Hemoglobin stable at baseline 10-11 on admission. 6. Anxiety/depression ? Stable. Continue home bupropion and mirtazapine. 7. GERD ? Continue home PPI. DVT prophylaxis: SCDs CODE STATUS: DNR CCA, DNI Clinical Impression(s) from Imaging Studies Hip/Pelvis X-Ray 07/25/24 15:10 IMPRESSION: Nondisplaced right intertrochanteric fracture of the proximal right femur. Reading Location: [facility]-1 Chest X-Ray 07/25/24 15:15 IMPRESSION: Cardiomegaly and vascular congestion with atelectasis at the lung bases. Reading Location: [facility] Femur X-Ray 07/25/24 17:40 IMPRESSION: Nondisplaced intertrochanteric fracture. Reading Location: [id number] Echocardiogram 07/25/24 22:20 Interpretation Summary Hypermobile atrial septum. Normal LV size. Left ventricular systolic function is normal. The left ventricular ejection fraction is 70 %. Stage 1 diastolic dysfunction. Mild-Moderate (1-2+) anteriorly directed mitral valve insufficiency. Posterior leaflet mitral valve prolapse. Moderate pulmonary hypertension. Charges/Coding Addendum Addendum: Total time of the visit including total time spent in counseling or coordinationof care, (more than 50% of the total time, spent in obtaining medical information from nurses and other ancillary care providers ,explaining to the patient about labs, imaging, diagnosis and management of active complex medical conditions), discussion with orthopedic surgeon, anesthesiologist and perioperative evaluation, review of labs and imaging is 35 minutes. Visit Charges Inpatient E&M: 12862 [facility] L3 07/26/24 1530 <Electronically signed by Neymar Cunningham MD> Cosigner Signature (if applicable): CC: ~ Signed [facility] Work Phone: [phone] Consult note [facility] Medical Records Department [address] [place] [address] Pre-Anesthesia Evaluation 07/26/24 1622 MR#: [id number] Acct: [id number] Name: KATHERINE JUDGE Rep #:[id number] : 1935 89 From: Rocky Sidhu MD PCP: Dr. Kam Ocampo Sr., DO Status:A DM IN Y Race: C Location: [address] ASA Classification* ASA Classification ASA Classification: 4 and E (HFpEF with hypoxia, requiring O2, HTN, HLD, historyof CVA) Assessment & Plan Anesthesia* Anesthesia Assessment Anesthesia Assessment: Discussed sedation and/or anesthesia options, risks, benefits, and alternatives with patient/parents/legal guardian/POA. Questions invited. The patient/parents/legal guardian/POA seems to understand and agrees to proceedwith anesthesia plan. Reviewed the physical assessment, medical history, allergy history and patient home medications list prior to surgery/procedure/anesthetic and documented any changes. Performed airway and anesthesia risk assessments. As per hospitalist: Mild acute on chronic HFpEF with hypoxia, history of CAD with stenting, hypertension, hyperlipidemia, history of CVA ? Last echo in 10/2022 showed EF 70%, LA enlargement but no diastolic dysfunction, no valvular issues. Chest x-ray on admit with cardiomegaly with vascular congestion and atelectasis at lung bases. Patient on home oxygen as needed in detention but required 4 L at time of admission. She was tapered off oxygen in the morning but changed to 2 L. Echo shows EF 70% with stage I diastolic dysfunction, mild to moderate, anteriorly directed MR, moderate pulmonary hypertension, RVSP 65 mmHg. Moderate TR. In the morning today, patient BP was lower side and looks euvolemic. Patient had 2 doses of 40 mg IV furosemide yesterday. Hold Lasix today and might consider after surgery depending upon the fluid status. Discussed patient's increased risk of complications due to her recent SOB, patient verbalized understanding and agreed to proceed. Anesthesia Type Anesthesia Type: General History Source History Obtained from:: Patient and Chart Anesthesia Focused Assessment* Temperature: 97.6 F Pulse Rate: 80 Blood Pressure: 145/64 Respiratory Rate: 19 Pulse Ox: 95 Oxygen Delivery Method: Nasal Cannula Oxygen Flow Rate (L/min): 2 Airway Assessment Mouth opens: >3 cm Mallampati Score: II Teeth Condition: Intact Neck Range of motion (ROM): Full ROM Labs Anesthesia Preop lab: CBC WBC 8.9 K/mm3 (4.4-11.0) 07/26/24 02:43 07/26/24 RBC 3.01 M/mm3 (4.2-5.4) L 07/26/24 02:43 07/26/24 Hgb 10.0 g/dL (12.0-15.0) L 07/26/24 02:43 5 Hct 29.0 % (37-47) L 07/26/24 02:43 07/26/24 Plt Count 171 K/mm3 (150-450) 07/26/24 02:43 07/26/24 CHEMISTRY Potassium 4.4 mmol/L (3.3-5.1) 07/26/24 02:43 07/26/24 Sodium 135 mmol/L (133-145) 07/26/24 02:43 07/26/24 BUN 12 mg/dL (4-19) 07/26/24 02:43 07/26/24 Creatinine 0.90 mg/dL (0.70-1.20) 07/26/24 02:43 07/26/24 Glucose 151 mg/dL (70-99) H 07/26/24 02:43 07/26/24 TSH 2.060 uIU/mL (0.300-4.200) 07/26/24 02:43 07/10 09/02 COAG PT 13.0 SECONDS (11.7-14.9) 07/25/24 14:35 Pre-Assessment Diagnosis/Proposed Procedure Planned Operative Procedure(s): Femur nailing (see ortho note) Anesthesia History Anesthesia History - plate driller: Anesthesia History - plate driller Hx Hospitalization Any Problems With Anesthesia No 07/26/24 03:31 Cholinesterase deficiency No 07/26/24 03:31 You/Your Family Experience No 07/26/24 03:31 fever (hyperthermia) with Relationship Recent Exposure to Contagious No 07/26/24 03:31 Disease Does patient have nerve No 07/26/24 03:31 stimulator Patient instructed to have No 07/26/24 03:31 device shut off --Does patient have Pacemaker No 07/26/24 13:46 or ICD? When Was Last Pacemaker Check QUESTION #4 FULL TEXT: You/Your Family Experience fever (hyperthermia) with Anesthesia Last Oral Intake Last Oral intake: Last Oral Intake NPO since 00:00 07/26/24 13:46 Meds taken in AM with sips of Yes 07/26/24 13:46 water? Meds patient instructed to oxycodone 07/26/24 13:46 take am of surgery PONV PONV - plate driller: PONV - plate driller Female HX of Motion Sickness HX of N/V After Surgery Non-Smoker Duration of Surgery greater than 60 minutes Number of Risk Factors PONV Score Height & Weight Height & Weight: Anesthesia: Height & Weight Height 5 ft 07/26/24 13:46 Weight: 48.534 kg 07/26/24 13:46 Body Mass Index (BMI) 20.9 07/26/24 13:46 Respiratory Assessment Respiratory Assessment - plate driller: Respiratory Tract Infection Hx - plate driller Hx Respiratory Tract Infection No 07/26/24 03:31 STOP Sleep Apnea STOP Sleep Apnea - plate driller: STOP Sleep Apnea - plate driller Hx Hypertension Yes 07/25/24 18:26 Hx Sleep Apnea Yes 07/25/24 18:26 CPAP Yes 07/25/24 18:26 BIPAP No 07/25/24 18:26 Do you snore loudly (louder than talking or can be heard Do you often feel tired/ fatigued/ sleepy during daytime? Has anyone observed you stop breathing during sleep? STOP Results Positive 07/25/24 18:26 QUESTION #5 FULL TEXT : Do you snore loudly (louder than talking or can be heard through closeddoors)? Tobacco Use History Tobacco Use History - plate driller: Tobacco Use History - plate driller Tobacco Use Smoking Status Never smoker 07/25/24 18:26 Hx Tobacco Use No 07/25/24 18:26 Years Smoking Packs Smoked per Day Smoking Cessation Date was No - quit smoking greater 07/25/24 18:26 within the last 15 years than 15 years ago Hx Smoking Cessation Date Hx Smoking Cessation Counseling Hematologic Medial History Hematologic Hx - plate driller: Hematologic Medical Hx - chief information officer Hx of Blood Transfusion Yes 07/25/24 18:26 Hx of Transfusion in last 3 No 07/25/24 18:26 Months Date of Last Transfusion (if within last 3 months) Ever experience any problems No 07/25/24 18:26 with transfusion(s)? Specify any problems Hx of Preganancy in last 3 No 07/25/24 18:26 Months Nurse Filling Out Transfusion [id number] 07/25/24 18:26 & Questions: Date: 07/25/24 07/25/24 18:26 Time: 18:35 07/25/24 18:26 Patient unable to answer at this time (ie. confused, unrespo /Reproduction History /Reproductive History - plate driller: /Reproductive Hx- plate driller Hx Now No 07/26/24 03:31 Gestational Age (in weeks): EDC: Hx Hx Para Hx Section SAB No 07/26/24 03:31 Active Medications Active Medications: Current Medications Generic Name Dose Route Start Last Admin Trade Name Freq PRN Reason Stop Dose Admin Acetaminophen 1,000 mg 07/25/24 22:00 07/26/24 13:49 Acetaminophen 500 Mg Tablet PO Not Given Q8 HUMBERTO Albuterol Sulfate 2.5 mg 07/26/24 00:00 07/26/24 11:05 Albuterol 2.5 Mg/3 Ml Vial.Neb. INHALATION 2.5 mg Q4HWA.RT HUMBERTO Administration Atorvastatin Calcium 40 mg 07/25/24 22:00 07/25/24 22:24 Atorvastatin Calcium 40 Mg Tablet PO 40 mg QHS HUMBERTO Administration Bupropion HCl 150 mg 07/26/24 10:00 07/26/24 09:14 Bupropion (Xl) 150 Mg Tablet.Xl PO Not Given DAILY HUMBERTO Doxazosin Mesylate 2 mg 07/26/24 10:00 07/26/24 09:13 Doxazosin 1 Mg Tablet PO Not Given DAILY HUMBERTO Furosemide 20 mg 07/26/24 10:00 07/26/24 08:23 Furosemide 20 Mg Tablet PO Not Given DAILY [facility] Protocol Hydromorphone HCl 0.5 mg 07/25/24 20:49 07/25/24 22:16 Hydromorphone 0.5 Mg/0.5 Ml Syringe IV 0.5 mg Q4H PRN PRN Administration Pain Score 6-10 Sodium Chloride 250 mls @ 15 mls/hr 07/25/24 18:28 IV .[id number] PRN Saline Flush Sodium Chloride 250 mls @ 15 mls/hr 07/25/24 18:28 IV .[id number] PRN Additional IVPB Infusion Lactated Ringer's 1,000 mls @ 15 mls/hr 07/26/24 15:45 IV .Q48H HUMBERTO Vancomycin HCl 1,000 mg in 200 mls @ 200 mls/hr 07/26/24 15:57 Vancomycin IV 07/26/24 16:56 PREOP ONE Isosorbide Mononitrate 30 mg 07/26/24 10:00 Isosorbide Mononitrate 30 Mg Tablet PO DAILY [facility] Protocol Loratadine 10 mg 07/26/24 10:00 07/26/24 08:23 Loratadine 10 Mg Tablet PO Not Given DAILY HUMBERTO Melatonin 3 mg 07/25/24 22:00 Melatonin 3 Mg Tablet PO QHS PRN PRN INSOMNIA Metoprolol Tartrate 25 mg 07/25/24 22:00 07/26/24 09:13 Metoprolol Tartrate 25 Mg Tablet PO Not Given BID [facility] Protocol Mirtazapine 30 mg 07/25/24 22:00 07/25/24 22:25 Mirtazapine 30 Mg Tablet PO 30 mg QHS [facility] Administration Montelukast Sodium 10 mg 07/26/24 10:00 07/26/24 08:23 Montelukast 10 Mg Tablet PO Not Given DAILY [facility] Multivitamins 1 tablet 07/26/24 08:00 07/26/24 08:23 Multivitamins,Therapeutic Tablet PO [facility] Ondansetron HCl 4 mg 07/25/24 18:26 07/26/24 12:31 Ondansetron 4 Mg/2 Ml Vial IV 4 mg Q8H PRN PRN Administration NAUSEA/VOMITING Oxycodone HCl 5 mg 07/25/24 18:26 07/26/24 10:54 Oxycodone 5 Mg Tablet PO 5 mg Q4H PRN PRN Administration Pain Score 6-10 Pantoprazole Sodium 40 mg 07/26/24 10:00 07/26/24 08:23 Pantoprazole Sodium 40 Mg Tablet PO Not Given DAILY [facility] Potassium Chloride 20 meq 07/26/24 10:00 07/26/24 08:23 Potassium Chloride Oral Tablet 20 Meq PO Not Given DAILY HUMBERTO Senna/Docusate Sodium 1 tablet 07/26/24 22:00 Senna/Docusate Sodium 1 Tablet PO BID HUMBERTO Sodium Chloride 10 - 40 ml 07/25/24 18:28 07/26/24 12:31 0.9% Saline Lock 10 Ml Syringe IV 10 ml UD PRN Administration SALINE FLUSH [facility] Medical History Polyneuropathy PVD (peripheral vascular disease) Osteoporosis Hypothyroidism GERD (gastroesophageal reflux disease) Hypertensive heart and chronic kidney disease stage 3 Anxiety Asthma Sleep apnea COPD (chronic obstructive pulmonary disease) Gout CKD (chronic kidney disease) stage 3, GFR 30-59 ml/min Major depressive disorder CHF (congestive heart failure) Home Medications ?Medication ?Instructions ?Recorded ?Last Taken ?Type acetaminophen 500 mg tablet 500 mg PO BID [ain 5 Unknown History atorvastatin 40 mg tablet 40 mg PO DAILY hyperlipidemi a 07/25/24 Unknown History azelastine 137 mcg (0.1 %) nasal intranasal allergies 07/25/24 Unknown History spray budesonide 0.5 mg/2 mL suspension mg surgical endoscopist 07/25/24 Unkn own History for nebulization bupropion HCl 150 mg 24 hr tablet, 150 mg PO DAILY . 0 07/25/24 Unknown History extended release calcium carbonate PO . 07/25/24 Unknown Histor y cetirizine 5 mg tablet 5 mg PO DAILY . 07/25/24 Unk nown History clopidogrel 75 mg tablet 75 mg PO DAILY . 07/25/24 Un known History dicyclomine 10 mg capsule 10 mg PO TID . 07/25/24 Unkn own History doxazosin 2 mg tablet 2 mg PO DAILY . 07/25/24 Unk nown History furosemide 20 mg tablet 20 mg PO DAILY . 07/25/24 Un known History gabapentin 100 mg capsule PO . 07/25/24 Unknown Histor y ipratropium 0.5 mg-albuterol 3 mg ml . 07/25/24 Unknow n History (2.5 mg base)/3 mL nebulization soln isosorbide mononitrate 30 mg 30 mg PO DAILY . 07/25/24 Unknown History tablet,extended release 24 hr metoprolol tartrate 25 mg tablet 25 mg PO BID . Unknown History mirtazapine 30 mg tablet 30 mg PO QHS . 07/25/24 Unkn own History montelukast 10 mg tablet 10 mg PO DAILY . 07/25/24 Un known History multivitamin with folic acid 400 1 tab PO DAILY . 07/10 08/03 Unknown History mcg tablet (Daily-Carmelo (with folic acid)) pantoprazole 40 mg tablet,delayed 40 mg PO DAILY . Unknown History release potassium chloride 20 mEq 20 meq PO DAILY . 07/25/24 U nknown History tablet,extended release(part/cryst) sennosides 8.6 mg-docusate sodium 1 tab PO DAILY . Unknown History 50 mg tablet (Senexon-S) Allergy/AdvReac Type Severity Reaction Status Date / [...] Verified 07/25/24 14:52 OF REACTION Surgical History History of cataract surgery History of lysis of adhesions Hx of hysterectomy Hx of total knee replacement Presence of aortocoronary bypass graft Social History Smoking Status: Never smoker Review of Systems (Anesthesia) ROS Narrative System reviewed and no additional complaints, except as documented. Physical Exam Const alert, oriented x3 and average body habitus Resp normal respiratory effort, normal air movement and clear to auscultation bilaterally Cardio regular rate, regular rhythm, no murmurs and diaphoretic 07/26/24 1641 MD> Date _ Rocky Sidhu MD Cosigner Signature: Date CC: ~ Signed [facility]06-17-2025 Progress note [facility] Medical Records Department [address] [place] [address] Progress Note - Hospitalist 07/26/24 1018 MR#: [id number] Acct: [id number] Name: KATHERINE JUDGE Rep #:[id number] : 1935 89 From: Neymar Herrera PCP: Dr. Kam Ocampo Sr., DO Status:A DM IN Location: [place] [address]-1 Reason for Visit Reason for Visit: Diagnoses Acute on chronic diastolic (congestive) heart failure (07/25/24) Displaced intertrochanteric fracture of right femur, initial encounter for closed fracture (07/25/24) Objective Data Objective Data Vital Signs: Vital Signs Temp Pulse Resp BP Pulse Ox O2 Del Method O2 Flow Rate 97.6 F L 76 18 100/50 L 97 Nasal Cannula 3 07/26/24 08:26 07/26/24 08:26 07/26/24 08:26 07/26/24 08:26 07/26/24 08:26 07/26/24 08:26 07/26/24 08:26 Oxygen Flow Rate (L/min) 3 Oxygen Delivery Method Nasal Cannula Weight: 107 lb Body Mass Index (BMI) 20.9 Intake & Output: Intake and Output for Last 24 Hours 07/24/24 07/25/24 07/26/24 23:59 23:59 23:59 Intake Total 200 / 200 Output Total 800 / 800 Balance -600 / -600 Lab / Micro Data 07/26/24 02:43 07/26/24 02:43 Labs: Laboratory Results - last 24 hr 07/25/24 14:35: WBC 7.6, RBC 3.28 L, Hgb 10.7 L, Hct 31.6 L, MCV 96.3, MCH 32.6 H, MCHC 33.9, RDW Std Deviation 49.4 H, RDW Coeff of Tamera 14.1, Plt Count 181, MPV 9.1, Immature Gran % (Auto) 0.400, Neut % (Auto) 69.2, Lymph % (Auto) 22.9, [place] % (Auto) 6.2, Eos % (Auto) 0.9, Baso % (Auto) 0.4, Absolute Neuts (auto) 5.3, Absolute Lymphs (auto) 1.75, Nucleated RBC % 0, PT 13.0, INR 1.0, APTT 27.1, Sodium 134, Potassium 5.0, Chloride 98, Carbon Dioxide 26.5, Anion Gap 9, BUN 13, Creatinine 0.92, Est GFR (MDRD) Non-Af 60, BUN/Creatinine Ratio 13.5, Glucose 126 H, Calcium 8.8 07/25/24 19:00: Urine Color Straw, Urine Clarity Clear, Urine pH 8.0, Ur Specific Sulphur 1.010, Urine Protein 30 H, Urine Glucose (UA) Normal, Urine Ketones Negative, Urine Occult Blood 10 H, Urine Nitrite Negative, Urine Bilirubin Negative, Urine Urobilinogen Normal, Ur Leukocyte Esterase Negative, Urine RBC 0-5 SEEN, Urine WBC 0-5 SEEN, Ur Squamous Epith Cells 0-5 SEEN, Ur Transition Epith Cell 0-5 SEEN, Urine Bacteria 0 SEEN, Urine Mucus 0 SEEN 07/25/24 22:30: Troponin T High Sens 24 H, NT pro BNP II 538 07/26/24 00:19: Troponin T Hi Sens 2 Hr 27 H 07/26/24 02:43: WBC 8.9, RBC 3.01 L, Hgb 10.0 L, Hct 29.0 L, MCV 96.3, MCH 33.2 H, MCHC 34.5, RDW Std Deviation 49.8 H, RDW Coeff of Tamera 14.1, Plt Count 171, MPV 8.9, Sodium 135, Potassium 4.4, Chloride 99, Carbon Dioxide 28.3, Anion Gap 8, BUN 12, Creatinine 0.90, Estim Creat Clear Calc 31.04 L, Est GFR (MDRD) Non- Af 61, BUN/Creatinine Ratio 12.8, Glucose 151 H, Calcium 8.9, Troponin T Hi Wzol2Le 25 H, TSH 2.060, Blood Type O POSITIVE, Antibody Screen NEGATIVE Radiography Diagnostic Testing: Radiology Impression Hip/Pelvis X-Ray 07/25/24 15:10 IMPRESSION: Nondisplaced right intertrochanteric fracture of the proximal right femur. Reading Location: [facility]--1 Chest X-Ray 07/25/24 15:15 IMPRESSION: Cardiomegaly and vascular congestion with atelectasis at the lung bases. [facility] Fem[facility] 07/25/24 17:40 IMPRESSION: Nondisplaced intertrochanteric fracture. Reading Location: [id number] Echocardiogram 07/25/24 22:20 Interpretation Summary Hypermobile atrial septum. Normal LV size. Left ventricular systolic function is normal. The left ventricular ejection fraction is 70 %. Stage 1 diastolic dysfunction. Mild-Moderate (1-2+) anteriorly directed mitral valve insufficiency. Posterior leaflet mitral valve prolapse. Moderate pulmonary hypertension. Ordering Physician: Hayden Diaz Referring Physician: Kam Ocampo Performed By: Celeste Gore, YUKI, RVT Physical Exam Const Constitutional Narrative: Seen and examined. Patient states that she uses oxygen as needed detention. Uses CPAP diligently at night. Denies chest pain or shortness of breath. Pulse ox 97% on3 L of oxygen but she was tapered off. She had 2 doses of Lasix 40 mg yesterday. And I think she is euvolemic in the morning today therefore does notneed further Lasix today and also going for surgery therefore avoid diuretics today. BP was also low 100/40 in the morning to noon time Physical exam General: Alert, Oriented x3, Cooperative HEENT: Atraumatic, PERRLA, EOMI, Normocephalic. Oral: No Gingival or Mucosal Lesions/ Ulcerations Neck: Supple, No JVD, Negative Carotid Bruits Chest wall/Lungs: Air entry diminished in bilateral lung bases. No crepitation/rhonchi Cardiovascular: Regular rate and rhythm, Normal S1,S2, systolic murmur over cardiac apex and left SSV Abdomen: Bowel Sounds Present, Soft, Non Tender, Non-Distended : No dysuria. No renal angle tenderness. No suprapubic tenderness. Extremities: mild pedal edema, Capillary Refill Less than 3 Seconds Skin: No rashes, No breakdown Musculoskeletal: Right proximal femur/hip is tender, flexed and externally rotated. Did not attemptactive or passive movement. Left hip and knee not tender. Neurological: Cranial nerves II-XII grossly intact, DTR 2+/4. No acute focal neurological deficit. Psych/Mental Status: Flat affect Assessment & Plan Assessment/Plan (1) Closed intertrochanteric fracture of right hip: QUALIFIERS: Encounter type: initial encounter Fracture alignment:displaced Qualified Code(s): S72.141A - Displaced intertrochanteric fracture ofright femur, initial encounter for closed fracture (2) Acute on chronic heart failure with preserved ejection fraction (HFpEF): PLAN: Plan Patient is an 89-year-old female who presented to [facility] ED on 07/25/2024 with right hip pain after a mechanical fall. 1. Acute debility due to right hip nondisplaced intertrochanteric fracture: Patient is being admitted [facility] floor. Hip and pelvis x-rays reviewed and agrees with nondisplaced fracture as mentioned.. Orthopedic surgeon Dr. Toddlted. Patient is going for surgery today. PT and OT consulted. Perioperative evaluation was done, NSQIP at above average risk, mention in detail below. Pain management. 2. Mild acute on chronic HFpEF with hypoxia, history of CAD with stenting, hypertension, hyperlipidemia, history of CVA ? Last echo in 10/2022 showed EF 70%, LA enlargement but no diastolic dysfunction, no valvular issues. Chest x-ray on admit with cardiomegaly with vascular congestion and atelectasis at lung bases. Patient on home oxygen as needed in detention but required 4 L at time of admission. She was tapered off oxygen in the morning but changed to 2 L. Echo shows EF 70% with stage I diastolic dysfunction, mild to moderate, anteriorly directed MR, moderate pulmonary hypertension, RVSP 65 mmHg. Moderate TR. In the morning today, patient BP was lower side and looks euvolemic. Patient had 2 doses of 40 mg IV furosemide yesterday. Hold Lasix today and might consider after surgery depending upon the fluid status. 3. Preoperative evaluation ? NSQIP score: Patient is at above average risk of any complication answers complication given age,partially dependent functional status, CHF and hypertension. ? Labs/imaging: Hemoglobin and kidney function stable at baseline. No further labs or imaging required preoperatively. Follow-up CBC and BMP postoperatively. ? Cardiac workup: Mild HFpEF exacerbation as noted above. Repeat echocardiogram, BNP and troponins ordered. ? Medications: Okay to continue Lopressor, doxazosin, Lasix and Imdur. Holding Plavix for procedure, will defer to orthopedics on timing of restarting. ? Prior procedural complications: None. ? Recommendation: Recommend holding on procedure until cardiac workup as above has resulted and patient has been optimized from a volume status standpoint. Will keep patient n.p.o. at midnight in case procedure can be done tomorrow afternoon. Resume beta-simon after surgery when oral is allowed. 4. Acute on chronic debility, history of bilateral knee replacements ? PT/OT/case management consulted as above. Lives in [facility], will likely be okay to return there on discharge. 5. Mild chronic anemia ? Hemoglobin stable at baseline 10-11 on admission. 6. Anxiety/depression ? Stable. Continue home bupropion and mirtazapine. 7. GERD ? Continue home PPI. DVT prophylaxis: SCDs CODE STATUS: DNR CCA, DNI Clinical Impression(s) from Imaging Studies Hip/Pelvis X-Ray 07/25/24 15:10 IMPRESSION: Nondisplaced right intertrochanteric fracture of the proximal right femur. Reading Location: [facility] Chest X-Ray 07/25/24 15:15 IMPRESSION: Cardiomegaly and vascular congestion with atelectasis at the lung bases. Reading Location: [facility] Femur X-Ray 07/25/24 17:40 IMPRESSION: Nondisplaced intertrochanteric fracture. Reading Location: [id number] Echocardiogram 07/25/24 22:20 Interpretation Summary Hypermobile atrial septum. Normal LV size. Left ventricular systolic function is normal. The left ventricular ejection fraction is 70 %. Stage 1 diastolic dysfunction. Mild-Moderate (1-2+) anteriorly directed mitral valve insufficiency. Posterior leaflet mitral valve prolapse. Moderate pulmonary hypertension. Charges/Coding Addendum Addendum: Total time of the visit including total time spent in counseling or coordinationof care, (more than50% of the total time, spent in obtaining medical information from nurses and other ancillary care providers ,explaining to the patient about labs, imaging, diagnosis and management of active complexmedical conditions), discussion with orthopedic surgeon, anesthesiologist and perioperative evaluation, review of labs and imaging is 35 minutes. Visit Charges Inpatient E&M: 76957 Subs Hosp L3 07/26/24 1530 Cosigner Signature (if applicable): CC: ~ Signed [facility]06-17-2025 Discharge summary Author Jacobo Moya [facility] Note Date/Time July 25, 2024 11:2 7pm [facility] Medical Records Department [address] [place] [address] Emergency Department Summary 07/25/24 MR#: [id number] Acct: [id number] Name: KATHERINE JUDGE Rep #:[id number] : 1935 89 From: Jacobo Palmer PCP: Dr. Kam Ocampo Sr., DO Status:A DM IN Location: MS3 [id number] HPI HPI - Fall History of Present Illness Chief Complaint: Fall Informant: patient Occured/Mechanism Occurred: Today Mechanism/Context: Yes same level fall Pain/Injury Location: Right hip Quality of Pain: Sharp Worsened by: Movement Relieved by: Rest Associated Symptoms Associated Symptoms: Positive for Inability to ambulate; Negative for Parasthesias, Weakness, Loss of function, Loss of consciousness or Amnesia Narrative Narrative: Patient presents with right hip pain that began after a fall today. Patient states she was reaching to open the door and she fell forward. Patient states she landed on her right hip. Patient states her pain is sharp. Patient states it is worse with movement. Patient states it is better with rest. Patient states she was unable to stand after the fall. Patient denies any head injury or loss of consciousness. Patient denies any other injuries. [facility] Medical History (Updated 07/25/24 @ 17:[address] Thanh Mclaughlin, DO) Polyneuropathy PVD (peripheral vascular disease) Osteoporosis Hypothyroidism [...] (Updated 07/25/24 @ 14:[address] Jacobo Moya DO) History of cataract surgery History of lysis of adhesions Hx of hysterectomy Hx of total knee replacement Presence of aortocoronary bypass graft Social History Smoking Status: Former smoker ROS ROS ED Constitutional Constitutional ED: Denies chills or fever(s) Eyes Eyes: Denies blurry vision or change in vision ENT ENT ED: Reports rhinorrhea; Denies sore throat Cardiovascular Cardiovascular: Denies chest pain or palpitations Respiratory/Chest Respiratory/Chest: Denies cough or dyspnea Gastrointestinal Gastrointestinal: Denies nausea or vomiting Genitourinary Genitourinary ED: Denies dysuria or hematuria Musculoskeletal Musculoskeletal: Denies back pain or neck pain Integumentary Denies abscess or rash Neurologic Neurologic: Denies headache(s) or weakness Allergic/Immunologic Allergic/Immunologic ED: Denies mouth swelling or urticaria EXAM Physical Exam Const Vital Signs: 07/25/24 14:32 Temperature 98.1 F Temperature Source Oral Pulse Rate 84 Respiratory Rate 16 Blood Pressure 130/55 H Blood Pressure Mean 80 Pulse Ox 95 Oxygen Delivery Method Nasal Cannula Oxygen Flow Rate (L/min) 2 Positive well nourished and well developed General Appearance ED: well developed HEENT Reports normocephalic atraumatic Neck full ROM and supple Resp normal respiratory effort and clear to auscultation bilaterally Cardio regular rate and regular rhythm GI non-tender and non-distended Palpation: soft Extremity Extremity Narrative: There is tenderness over the right hip. There is shortening and external rotation of the right lower extremity. There is pain with internal and externalrotation of the right hip. Pedal pulses are equal bilaterally. Sensation was intact to light touch in the lower extremities bilaterally. There is no calf tenderness noted. Neuro oriented x3, CN's II-XII intact bilaterally, moves all extremities, no focal motor deficits and no sensory deficits noted Sensorium / Orientation: alert Motor Exam: strength 5/5 throughout Psych mental status grossly normal MDM MDM MDM Narrative Medical decision making narrative: Differential diagnosis includes hip fracture, contusion, sprain, and urinary tract infection. X-rays of the right hip will be obtained to assess for fracture. Since it is likely that there is a fracture of the patient's femoral neck, medical screening labs will be obtained. EKG will be obtained to assess for cardiac dysrhythmia and cardiac ischemia. Chest x-ray will be obtained to assess for pneumonia and bronchitis. CBC will be obtained to assess for leukocytosis and anemia. Basic metabolic profile will be obtained to assess for electrolyte abnormality and renal function. PT with INR and PTT will be obtained to assess for coagulopathy. History & Record Review Additional record(s) reviewed:: Prior labs Lab Data Attestation: I reviewed the patient's lab results. Lab results narrative: CBC was reviewed. There is a mild anemia with a hemoglobin of 10.7 and hematocrit 31.6. The remainder is within normal limits. PT was INR and PTT were within normal limits. Basic metabolic profile was reviewed and was essentially within normal limits. Labs: Laboratory Results - last 24 hr 07/25/24 14:35 WBC 7.6 RBC 3.28 L Hgb 10.7 L Hct 31.6 L MCV 96.3 MCH 32.6 H MCHC 33.9 RDW Std Deviation 49.4 H RDW Coeff of Tamera 14.1 Plt Count 181 MPV 9.1 Immature Gran % (Auto) 0.400 Neut % (Auto) 69.2 Lymph % (Auto) 22.9 [place] % (Auto) 6.2 Eos % (Auto) 0.9 Baso % (Auto) 0.4 Absolute Neuts (auto) 5.3 Absolute Lymphs (auto) 1.75 Nucleated RBC % 0 PT 13.0 INR 1.0 APTT 27.1 Sodium 134 Potassium 5.0 Chloride 98 Carbon Dioxide 26.5 Anion Gap 9 BUN 13 Creatinine 0.92 Est GFR (MDRD) Non-Af 60 BUN/Creatinine Ratio 13.5 Glucose 126 H Calcium 8.8 Radiography Chest X-Ray - ED: 1 View, Read by ED Physician, Read by Radiologist and Cardiomegaly Diagnostic Testing: Clinical Impression(s) from Imaging Studies Hip/Pelvis X-Ray 07/25/24 15:10 IMPRESSION: Nondisplaced right intertrochanteric fracture of the proximal right femur. Reading Location: [facility] Chest X-Ray 07/25/24 15:15 IMPRESSION: Cardiomegaly and vascular congestion with atelectasis at the lung bases. Reading Location: [facility] Portable 1 view chest x-ray was obtained. On my independent interpretation, lung holden show mild vascular congestion and atelectasis at the lung bases. There is cardiomegaly. Bony thorax is normal. There is no acute process noted. Radiologist also interpreted the x-ray and agrees. X-rays of the right hip were obtained. There are 3 views. On my independent interpretation, there is a nondisplaced intertrochanteric fracture of the right. Radiologist also interpreted the x-rays and agrees. EKG Initial EKG: Attestation: I personally reviewed and interpreted this EKG as follows: Interpretation: Sinus Rhythm (66), RBBB and Non-Specific ST Changes Comments: EKG was obtained. On my independent interpretation, it shows a normal sinus rhythm with a rate of 66. AK interval was normal at 170 ms. QRS interval was prolonged at 144 ms. QTc interval was slightly prolonged at 484 ms. There is borderline right axis deviation at 105. There is a right bundle branch block pattern noted. There are nonspecific ST-T wave changes noted. Prior EKG tracings: not available for review Prior: No Prior Management Discussion w/another healthcare provider: Hospitalist and Test Engine Evaluator Treatment and Re-Evaluation Narrative: Patient was advised of her findings. Patient was advised of need for hospitalization. Case was discussed with the hospitalist. He will admit the patient to his service. Case was discussed with Dr. Mclaughlin from orthopedics. He will be in to evaluate the patient. Discharge Plan Dx/Rx/DC Orders Clinical Impression: Closed intertrochanteric fracture of right hip, Fall, Elevated blood pressure reading Disposition Disposition: Acute Care Hospital [facility] What to do if you have Problems For any increased pain, shortness of breath, bleeding, nausea or vomiting, chestpain, or any unexpected problems, contact your Primary Care Provider. Call [facility] ([phone]) or report to the closest Emergency Room. Call 911 if necessary. 07/25/24 8337 <Electronically signed by Jacobo Moya DO> Cosigner Signature (if applicable): CC: Dr. Kam Ocampo Sr., DO ~ Signed [facility] Work Phone: [phone] 828-807806-17-2025 History and physical note Author Hayden Diaz [facility] Note Date/Time July 25, 2024 10:2 0pm [facility] Medical Records Department [address] [place] [address] H&P Exam - Hospitalist 07/25/24 1651 MR#: [id number] Acct: [id number] Name: KATHERINE JUDGE Rep #:[id number] : 1935 89 From: Hayden malik DO PCP: Dr. Kam Ocampo Sr., DO Status:A DM IN Location: [facility] [id number] HPI - General General Date of Admission: 07/25/24 Date of Service: 07/25/24 Chief Complaint: Fall with right hip pain HPI Narrative KATHERINE JUDGE, is a 89 F who presented to [facility] ED on 07/25/2024 with right hip pain after a fall. Patient has history of chronic debility, lives at the [facility]. She had a fall today where shewas reaching for her to open the door, fell forward and landed on her right hip. In the ED x-ray confirmed a nondisplaced intertrochanteric fracture. Case was discussed with Dr. Mclaughlin with orthopedics who planning for surgery tomorrow afternoon pending medical evaluation. Hospitalist was then contacted for admission. I saw the patient at bedside in the ED. Patient was fatigued appearing but otherwise laying back fairly comfortably in bed in no acute distress. She was alert and oriented x 3 for me. She stated that the pain medication had only been somewhat helpful for her. If she did not move her painwas controlled, but she did report moderate to severe pain with any movement. She denies any other acute concerns currently. Will be admitted for further management. [facility] Medical History (Updated 07/25/24 @ 22:[address] Hayden Diaz, DO) Polyneuropathy PVD (peripheral vascular disease) Osteoporosis Hypothyroidism GERD (gastroesophageal reflux disease) Hypertensive heart and chronic kidney disease stage 3 Anxiety Asthma Sleep apnea COPD (chronic obstructive pulmonary disease) Gout CKD (chronic kidney disease) stage 3, GFR 30-59 ml/min Major depressive disorder CHF (congestive heart failure) Home Medications ?Medication ?Instructions ?Recorded ?Last Taken ?Type acetaminophen 500 mg tablet 500 mg PO BID [ain 5 Unknown History atorvastatin 40 mg tablet 40 mg PO DAILY hyperlipidemi a 07/25/24 Unknown History azelastine 137 mcg (0.1 %) nasal intranasal allergies 07/25/24 Unknown History spray budesonide 0.5 mg/2 mL suspension mg surgical endoscopist 07/25/24 Unkn own History for nebulization bupropion HCl 150 mg 24 hr tablet, 150 mg PO DAILY . 0 07/25/24 Unknown History extended release calcium carbonate PO . 07/25/24 Unknown Histor y cetirizine 5 mg tablet 5 mg PO DAILY . 07/25/24 Unk nown History clopidogrel 75 mg tablet 75 mg PO DAILY . 07/25/24 Un known History dicyclomine 10 mg capsule 10 mg PO TID . 07/25/24 Unkn own History doxazosin 2 mg tablet 2 mg PO DAILY . 07/25/24 Unk nown History furosemide 20 mg tablet 20 mg PO DAILY . 07/25/24 Un known History gabapentin 100 mg capsule PO . 07/25/24 Unknown Histor y ipratropium 0.5 mg-albuterol 3 mg ml . 07/25/24 Unknow n History (2.5 mg base)/3 mL nebulization soln isosorbide mononitrate 30 mg 30 mg PO DAILY . 07/25/24 Unknown History tablet,extended release 24 hr metoprolol tartrate 25 mg tablet 25 mg PO BID . Unknown History mirtazapine 30 mg tablet 30 mg PO QHS . 07/25/24 Unkn own History montelukast 10 mg tablet 10 mg PO DAILY . 07/25/24 Un known History multivitamin with folic acid 400 1 tab PO DAILY . 07/10 08/03 Unknown History mcg tablet (Daily-Carmelo (with folic acid)) pantoprazole 40 mg tablet,delayed 40 mg PO DAILY . Unknown History release potassium chloride 20 mEq 20 meq PO DAILY . 07/25/24 U nknown History tablet,extended release(part/cryst) sennosides 8.6 mg-docusate sodium 1 tab PO DAILY . Unknown History 50 mg tablet (Senexon-S) Allergy/AdvReac Type Severity Reaction Status Date / [...] 07/25/24 @ 14:[address] Jacobo Moya, DO) History of cataract surgery History of lysis of adhesions Hx of hysterectomy Hx of total knee replacement Presence of aortocoronary bypass graft Social History Smoking Status: Never smoker ROS Constitutional Constitutional: Reports fatigue; Denies chills, fever(s) or weakness Eyes Eyes: Denies change in vision Cardiovascular Cardiovascular: Denies chest pain, dyspnea on exertion, edema, lightheadedness or palpitations Respiratory/Chest Respiratory/Chest: Denies cough or shortness of breath at rest Gastrointestinal Gastrointestinal: Denies abdominal pain Genitourinary Genitourinary: Denies dysuria Musculoskeletal Musculoskeletal: Reports joint pain; Denies myalgias Neurologic Neurologic: Denies dizziness, focal weakness or headache(s) Vital Signs Vital Signs Vital Signs: 07/25/24 14:32 Temperature 98.1 F Temperature Source Oral Pulse Rate 84 Respiratory Rate 16 Blood Pressure 130/55 H Blood Pressure Mean 80 Pulse Ox 95 Oxygen Delivery Method Nasal Cannula Oxygen Flow Rate (L/min) 2 Physical Exam Const alert, oriented x3, no apparent distress and average body habitus General Appearance: cooperative and comfortable HEENT normocephalic, head/scalp atraumatic, hearing grossly normal bilaterally, nasal mucous membranes and turbinates normal and moist oral mucous membranes Eyes PERRL, EOMs intact bilaterally and conjunctivae normal Neck full ROM Chest inspection of chest normal Resp normal respiratory effort, normal air movement, no use of accessory muscles and clear to auscultation bilaterally Resp Narrative: Breathing comfortably on 4 L nasal cannula at rest. Mild crackles noted and bilateral bases but otherwise good air movement throughout with no wheezing noted. Cardio regular rate, regular rhythm, no murmurs and peripheral pulses 2+ throughout GI normal to inspection, nondistended, normoactive bowel sounds, soft to palpation, non-tender and non-distended Back/Spine normal ROM Extremity Extremity Narrative: Right hip with tenderness to palpation. Did not attempt any movement of the hip. Skin no rashes or lesions noted Psych mental status grossly normal Results Lab / Micro Data 07/25/24 14:35 07/25/24 14:35 Labs: Laboratory Results - last 24 hr 07/25/24 14:35: WBC 7.6, RBC 3.28 L, Hgb 10.7 L, Hct 31.6 L, MCV 96.3, MCH 32.6 H, MCHC 33.9, RDW Std Deviation 49.4 H, RDW Coeff of Tamera 14.1, Plt Count 181, MPV 9.1, Immature Gran % (Auto) 0.400, Neut % (Auto) 69.2, Lymph % (Auto) 22.9, [place] % (Auto) 6.2, Eos % (Auto) 0.9, [...] of the proximal right femur. Reading Location: [facility] Chest X-Ray 07/25/24 15:15 IMPRESSION: Cardiomegaly and vascular congestion with atelectasis at the lung bases. Reading Location: [facility] Assessment & Plan Assessment/Plan (1) Closed intertrochanteric fracture of right hip: QUALIFIERS: Encounter type: initial encounter Fracture alignment: displaced Qualified Code(s): S72.141A - Displaced intertrochanteric fracture of right femur, initial encounter for closed fracture (2) Acute on chronic heart failure with preserved ejection fraction (HFpEF): PLAN: Plan Patient is an 89-year-old female who presented to [facility] ED on 07/25/2024 with right hip pain after a mechanical fall. 1. Right hip fracture ? Admit under inpatient status to [facility]. Orthopedic surgery consulted. PT/OT/case management consulted. Presented with right hip pain after mechanical fall. Hip/pelvis and femur x-rays confirmed a nondisplaced radial fracture. Per orthopedic surgery, planning for OR for right femur cephalomedullary fixation once medically optimized. Preoperative evaluation as noted below. Pain control with scheduled Tylenol, p.o. oxycodone as needed and IV Dilaudid as needed. DVT prophylaxis per orthopedic surgery. 2. Mild acute on chronic HFpEF with hypoxia, history of CAD with stenting, hypertension, hyperlipidemia, history of CVA ? Last echo in 10/2022 showed EF 70%, LA enlargement but no diastolic dysfunction, no valvular issues. Chest x-ray on admit with cardiomegaly with vascular congestion and atelectasis at lung bases. Not on home oxygen and requiring up to 4 L nasal cannula on admission to maintain appropriate oxygen saturations. Mild lower extremity edema on exam. Patient is normotensive and in normal sinus rhythm, and EKG with no ischemic changes noted. However, will obtain BNP and troponins for further evaluation now and repeat echocardiogram ordered. Will give dose of IV Lasix 40 mg now and give another dose tomorrow morning. Monitor urine output and wean supplemental oxygen as able. Okay to continue home Lopressor, doxazosin, Lasix and Imdur. Continue home statin. Holding Plavix for procedure. 3. Preoperative evaluation ? NSQIP score: Patient is at above average risk of any complication answers complication given age, partially dependent functional status, CHF and hypertension. ? Labs/imaging: Hemoglobin and kidney function stable at baseline. No further labs or imaging required preoperatively. Follow-up CBC and BMP postoperatively. ? Cardiac workup: Mild HFpEF exacerbation as noted above. Repeat echocardiogram, BNP and troponins ordered. ? Medications: Okay to continue Lopressor, doxazosin, Lasix and Imdur. Holding Plavix for procedure, will defer to orthopedics on timing of restarting. ? Prior procedural complications: None. ? Recommendation: Recommend holding on procedure until cardiac workup as above has resulted and patient has been optimized from a volume status standpoint. Will keep patient n.p.o. at midnight in case procedure can be done tomorrow afternoon. 4. Acute on chronic debility, history of bilateral knee replacements ? PT/OT/case management consulted as above. Lives in [facility], will likely be okay to return there on discharge. 5. Mild chronic anemia ? Hemoglobin stable at baseline 10-11 on admission. 6. Anxiety/depression ? Stable. Continue home bupropion and mirtazapine. 7. GERD ? Continue home PPI. DVT prophylaxis: SCDs CODE STATUS: DNR CCA, DNI Expected disposition: Likely back to detention, TBD Total clinical time spent by myself addressing the patient's medical issues, reviewing all the data, and collaborating with patient's care team: 75 minutes. Charges/Coding Visit Charges Inpatient E&M: 88564 Init Hosp L3 07/25/240 <Electronically signed by Hayden Diaz DO> Cosigner Signature (if applicable): CC: Dr. Hayden Diaz, ; Dr. Kam Ocampo Sr., DO~ Signed [facility] Work Phone: [phone] Discharge summary [facility] Medical Records Department [address] [place] [address] Emergency Department Summary 07/25/24 MR#: [id number] Acct: [id number] Name: KATHERINE JUDGE Rep #:[id number] : 1935 89 From: Jacobo Palmer PCP: Dr. Kam Ocampo Sr., Status:A DM IN Location: [place] [address] HPI HPI - Fall History of Present Illness Chief Complaint: Fall Informant: patient Occured/Mechanism Occurred: Today Mechanism/Context: Yes same level fall Pain/Injury Location: Right hip Quality of Pain: Sharp Worsened by: Movement Relieved by: Rest Associated Symptoms Associated Symptoms: Positive for Inability to ambulate; Negative for Parasthesias, Weakness, Loss of function, Loss of consciousness or Amnesia Narrative Narrative: Patient presents with right hip pain that began after a fall today. Patient states she was reachingto open the door and she fell forward. Patient states she landed on her right hip. Patient states her pain is sharp. Patient states it is worse with movement. Patient states it is better with rest. Patient states she was unable to stand after the fall. Patient denies any head injury or loss of consciousness. Patient denies any other injuries. [facility] Medical History (Updated 07/25/24 @ 17:[address] Thanh Mclaughlin DO) Polyneuropathy PVD (peripheral vascular disease) Osteoporosis Hypothyroidism [...] (Updated 07/25/24 @ 14:[address] Jacobo Moya DO) History of cataract surgery History of lysis of adhesions Hx of hysterectomy Hx of total knee replacement Presence of aortocoronary bypass graft Social History Smoking Status: Former smoker ROS ROS ED Constitutional Constitutional ED: Denies chills or fever(s) Eyes Eyes: Denies blurry vision or change in vision ENT ENT ED: Reports rhinorrhea; Denies sore throat Cardiovascular Cardiovascular: Denies chest pain or palpitations Respiratory/Chest Respiratory/Chest: Denies cough or dyspnea Gastrointestinal Gastrointestinal: Denies nausea or vomiting Genitourinary Genitourinary ED: Denies dysuria or hematuria Musculoskeletal Musculoskeletal: Denies back pain or neck pain Integumentary Denies abscess or rash Neurologic Neurologic: Denies headache(s) or weakness Allergic/Immunologic Allergic/Immunologic ED: Denies mouth swelling or urticaria EXAM Physical Exam Const Vital Signs: 07/25/24 14:32 Temperature 98.1 F Temperature Source Oral Pulse Rate 84 Respiratory Rate 16 Blood Pressure 130/55 H Blood Pressure Mean 80 Pulse Ox 95 Oxygen Delivery Method Nasal Cannula Oxygen Flow Rate (L/min) 2 Positive well nourished and well developed General Appearance ED: well developed HEENT Reports normocephalic atraumatic Neck full ROM and supple Resp normal respiratory effort and clear to auscultation bilaterally Cardio regular rate and regular rhythm GI non-tender and non-distended Palpation: soft Extremity Extremity Narrative: There is tenderness over the right hip. There is shortening and external rotation of the right lower extremity. There is pain with internal and externalrotation of the right hip. Pedal pulses are equal bilaterally. Sensation was intact to light touch in the lower extremities bilaterally. There is no calf tenderness noted. Neuro oriented x3, CN's II-XII intact bilaterally, moves all extremities, no focal motor deficits and no sensory deficits noted Sensorium / Orientation: alert Motor Exam: strength 5/5 throughout Psych mental status grossly normal MDM MDM MDM Narrative Medical decision making narrative: Differential diagnosis includes hip fracture, contusion, sprain, and urinary tract infection. X-rays of the right hip will be obtained to assess for fracture. Since it is likely that there is a fracture of the patient's femoral neck, medical screening labs will be obtained. EKG will be obtained to assess for cardiac dysrhythmia and cardiac ischemia. Chest x-ray will be obtained to assess for pneumonia and bronchitis. CBC will be obtained to assess for leukocytosis and anemia. Basic metabolic profile will be obtained to assess for electrolyte abnormality and renal function. PT with INR and PTTwill be obtained to assess for coagulopathy. History & Record Review Additional record(s) reviewed:: Prior labs Lab Data Attestation: I reviewed the patient's lab results. Lab results narrative: CBC was reviewed. There is a mild anemia with a hemoglobin of 10.7 and hematocrit 31.6. The remainder is within normal limits. PT was INR and PTT were within normal limits. Basic metabolic profile was reviewed and was essentially within normal limits. Labs: Laboratory Results - last 24 hr 07/25/24 14:35 WBC 7.6 RBC 3.28 L Hgb 10.7 L Hct 31.6 L MCV 96.3 MCH 32.6 H MCHC 33.9 RDW Std Deviation 49.4 H RDW Coeff of Tamera 14.1 Plt Count 181 MPV 9.1 Immature Gran % (Auto) 0.400 Neut % (Auto) 69.2 Lymph % (Auto) 22.9 [place] % (Auto) 6.2 Eos % (Auto) 0.9 Baso % (Auto) 0.4 Absolute Neuts (auto) 5.3 Absolute Lymphs (auto) 1.75 Nucleated RBC % 0 PT 13.0 INR 1.0 APTT 27.1 Sodium 134 Potassium 5.0 Chloride 98 Carbon Dioxide 26.5 Anion Gap 9 BUN 13 Creatinine 0.92 Est GFR (MDRD) Non-Af 60 BUN/Creatinine Ratio 13.5 Glucose 126 H Calcium 8.8 Radiography Chest X-Ray - ED: 1 View, Read by ED Physician, Read by Radiologist and Cardiomegaly Diagnostic Testing: Clinical Impression(s) from Imaging Studies Hip/Pelvis X-Ray 07/25/24 15:10 IMPRESSION: Nondisplaced right intertrochanteric fracture of the proximal right femur. Reading Location: [facility]-1 Chest X-Ray 07/25/24 15:15 IMPRESSION: Cardiomegaly and vascular congestion with atelectasis at the lung bases. Reading Location: [facility]-IR-1 Portable 1 view chest x-ray was obtained. On my independent interpretation, lung holden show mild vascular congestion and atelectasis at the lung bases. There is cardiomegaly. Bony thorax is normal. There is no acute process noted. Radiologist also interpreted the x-ray and agrees. X-rays of the right hip were obtained. There are 3 views. On my independent interpretation, there is a nondisplaced intertrochanteric fracture of the right. Radiologist also interpreted the x-rays and agrees. EKG Initial EKG: Attestation: I personally reviewed and interpreted this EKG as follows: Interpretation: Sinus Rhythm (66), RBBB and Non-Specific ST Changes Comments: EKG was obtained. On my independent interpretation, it shows a normal sinus rhythm with arate of 66. AK interval was normal at 170 ms. QRS interval was prolonged at 144 ms. QTc interval was slightly prolonged at 484 ms. There is borderline right axis deviation at 105. There is a right bundle branch block pattern noted. There are nonspecific ST-T wave changes noted. Prior EKG tracings: not available for review Prior: No Prior Management Discussion w/another healthcare provider: Hospitalist and Test Engine Evaluator Treatment and Re-Evaluation Narrative: Patient was advised of her findings. Patient was advised of need for hospitalization. Case was discussed with the hospitalist. He will admit the patient to his service. Case was discussed with Dr. Mclaughlin from orthopedics. He will be in to evaluate the patient. Discharge Plan Dx/Rx/DC Orders Clinical Impression: Closed intertrochanteric fracture of right hip, Fall, Elevated blood pressure reading Disposition Disposition: Acute Care Hospital [facility] What to do if you have Problems For any increased pain, shortness of breath, bleeding, nausea or vomiting, chestpain, or any unexpected problems, contact your Primary Care Provider. Call [facility] ([phone]) or report tothe closest Emergency Room. Call 911 if necessary. 07/25/24 4546 Cosigner Signature (if applicable): CC: Dr. Kam Ocampo Sr., DO ~ Signed [facility]06-16-2025 History and physical note [facility] Medical Records Department [address] [place] [address] H&P Exam - Hospitalist 07/25/24 1651 MR#: [id number] Acct: [id number] Name: KATHERINE JUDGE Rep #:[id number] : 1935 89 From: Hayden malik DO PCP: Dr. Kam Ocampo Sr., DO Status:A DM IN Location: MS3 [id number] HPI - General General Date of Admission: 07/25/24 Date of Service: 07/25/24 Chief Complaint: Fall with right hip pain HPI Narrative KATHERINE JUDGE, is a 89 F who presented to [facility] ED on 07/25/2024 with right hippain after a fall. Patient has history of chronic debility, [facility]. She had a fall today where shewas reaching for her to open the door, fell forward and landed on her right hip. In the ED x-ray confirmed a nondisplaced intertrochanteric fracture. Case was discussed with Dr. Mclaughlin with orthopedics who planning for surgery tomorrow afternoon pending medical evaluation. Hospitalist was then contacted for admission. I saw the patient at bedside in the ED. Patient was fatigued appearing but otherwise laying back fairly comfortably in bed in no acute distress. She was alert and oriented x 3 for me. She stated that the pain medication had only been somewhat helpful for her. If she did not move her painwas controlled, but she did report moderate to severe pain with any movement. She denies any other acute concerns currently. Will be admitted for further management. [facility] Medical History (Updated 07/25/24 @ 22:[address] Hayden Diaz, DO) Polyneuropathy PVD (peripheral vascular disease) Osteoporosis Hypothyroidism GERD (gastroesophageal reflux disease) Hypertensive heart and chronic kidney disease stage 3 Anxiety Asthma Sleep apnea COPD (chronic obstructive pulmonary disease) Gout CKD (chronic kidney disease) stage 3, GFR 30-59 ml/min Major depressive disorder CHF (congestive heart failure) Home Medications ?Medication ?Instructions ?Recorded ?Last Taken ?Type acetaminophen 500 mg tablet 500 mg PO BID [ain 5 Unknown History atorvastatin 40 mg tablet 40 mg PO DAILY hyperlipidemi a 07/25/24 Unknown History azelastine 137 mcg (0.1 %) nasal intranasal allergies 07/25/24 Unknown History spray budesonide 0.5 mg/2 mL suspension mg surgical endoscopist 07/25/24 Unkn own History for nebulization bupropion HCl 150 mg 24 hr tablet, 150 mg PO DAILY . 0 07/25/24 Unknown History extended release calcium carbonate PO . 07/25/24 Unknown Histor y cetirizine 5 mg tablet 5 mg PO DAILY . 07/25/24 Unk nown History clopidogrel 75 mg tablet 75 mg PO DAILY . 07/25/24 Un known History dicyclomine 10 mg capsule 10 mg PO TID . 07/25/24 Unkn own History doxazosin 2 mg tablet 2 mg PO DAILY . 07/25/24 Unk nown History furosemide 20 mg tablet 20 mg PO DAILY . 07/25/24 Un known History gabapentin 100 mg capsule PO . 07/25/24 Unknown Histor y ipratropium 0.5 mg-albuterol 3 mg ml . 07/25/24 Unknow n History (2.5 mg base)/3 mL nebulization soln isosorbide mononitrate 30 mg 30 mg PO DAILY . 07/25/24 Unknown History tablet,extended release 24 hr metoprolol tartrate 25 mg tablet 25 mg PO BID . Unknown History mirtazapine 30 mg tablet 30 mg PO QHS . 07/25/24 Unkn own History montelukast 10 mg tablet 10 mg PO DAILY . 07/25/24 Un known History multivitamin with folic acid 400 1 tab PO DAILY . 07/10 08/03 Unknown History mcg tablet (Daily-Carmelo (with folic acid)) pantoprazole 40 mg tablet,delayed 40 mg PO DAILY . Unknown History release potassium chloride 20 mEq 20 meq PO DAILY . 07/25/24 U nknown History tablet,extended release(part/cryst) sennosides 8.6 mg-docusate sodium 1 tab PO DAILY . Unknown History 50 mg tablet (Senexon-S) Allergy/AdvReac Type Severity Reaction Status Date / [...] 07/25/24 @ 14:[address] Jacobo Moya, DO) History of cataract surgery History of lysis of adhesions Hx of hysterectomy Hx of total knee replacement Presence of aortocoronary bypass graft Social History Smoking Status: Never smoker ROS Constitutional Constitutional: Reports fatigue; Denies chills, fever(s) or weakness Eyes Eyes: Denies change in vision Cardiovascular Cardiovascular: Denies chest pain, dyspnea on exertion, edema, lightheadedness or palpitations Respiratory/Chest Respiratory/Chest: Denies cough or shortness of breath at rest Gastrointestinal Gastrointestinal: Denies abdominal pain Genitourinary Genitourinary: Denies dysuria Musculoskeletal Musculoskeletal: Reports joint pain; Denies myalgias Neurologic Neurologic: Denies dizziness, focal weakness or headache(s) Vital Signs Vital Signs Vital Signs: 07/25/24 14:32 Temperature 98.1 F Temperature Source Oral Pulse Rate 84 Respiratory Rate 16 Blood Pressure 130/55 H Blood Pressure Mean 80 Pulse Ox 95 Oxygen Delivery Method Nasal Cannula Oxygen Flow Rate (L/min) 2 Physical Exam Const alert, oriented x3, no apparent distress and average body habitus General Appearance: cooperative and comfortable HEENT normocephalic, head/scalp atraumatic, hearing grossly normal bilaterally, nasal mucous membranes and turbinates normal and moist oral mucous membranes Eyes PERRL, EOMs intact bilaterally and conjunctivae normal Neck full ROM Chest inspection of chest normal Resp normal respiratory effort, normal air movement, no use of accessory muscles and clear to auscultation bilaterally Resp Narrative: Breathing comfortably on 4 L nasal cannula at rest. Mild crackles noted and bilateral bases but otherwise good air movement throughout with no wheezing noted. Cardio regular rate, regular rhythm, no murmurs and peripheral pulses 2+ throughout GI normal to inspection, nondistended, normoactive bowel sounds, soft to palpation, non-tender and non-distended Back/Spine normal ROM Extremity Extremity Narrative: Right hip with tenderness to palpation. Did not attempt any movement of the hip. Skin no rashes or lesions noted Psych mental status grossly normal Results Lab / Micro Data 07/25/24 14:35 07/25/24 14:35 Labs: Laboratory Results - last 24 hr 07/25/24 14:35: WBC 7.6, RBC 3.28 L, Hgb 10.7 L, Hct 31.6 L, MCV 96.3, MCH 32.6 H, MCHC 33.9, RDW Std Deviation 49.4 H, RDW Coeff of Tamera 14.1, Plt Count 181, MPV 9.1, Immature Gran % (Auto) 0.400, Neut % (Auto) 69.2, Lymph % (Auto) 22.9, [place] % (Auto) 6.2, Eos % (Auto) 0.9, [...] of the proximal right femur. Reading Location: [facility]-1 Chest X-Ray 07/25/24 15:15 IMPRESSION: Cardiomegaly and vascular congestion with atelectasis at the lung bases. Reading [facility] Assessment & Plan Assessment/Plan (1) Closed intertrochanteric fracture of right hip: QUALIFIERS: Encounter type: initial encounter Fracture alignment: displaced Qualified Code(s): S72.141A - Displaced intertrochanteric fracture of right femur, initial encounter for closed fracture (2) Acute on chronic heart failure with preserved ejection fraction (HFpEF): PLAN: Plan Patient is an 89-year-old female who presented to [facility] ED on 07/25/2024 with right hip pain after a mechanical fall. 1. Right hip fracture ? Admit under inpatient status to [facility]. Orthopedic surgery consulted. PT/OT/case management consulted. Presented with right hip pain after mechanical fall. Hip/pelvis and femur x-rays confirmed a nondisplaced radial fracture. Per orthopedic surgery, planning for OR for right femur cephalomedullary fixation once medically optimized. Preoperative evaluation as noted below. Pain control with scheduled Tylenol, p.o. oxycodone as needed and IV Dilaudid as needed. DVT prophylaxis per orthopedic surgery. 2. Mild acute on chronic HFpEF with hypoxia, history of CAD with stenting, hypertension, hyperlipidemia, history of CVA ? Last echo in 10/2022 showed EF 70%, LA enlargement but no diastolic dysfunction, no valvular issues. Chest x-ray on admit with cardiomegaly with vascular congestion and atelectasis at lung bases. Not on home oxygen and requiring up to 4 L nasal cannula on admission to maintain appropriate oxygen sa turations. Mild lower extremity edema on exam. Patient is normotensive and in normal sinus rhythm, and EKG with no ischemic changes noted. However, will obtain BNP and troponins for further evaluation now and repeat echocardiogram ordered. Will give dose of IV Lasix 40 mg now and give another dose tomorrow morning. Monitor urine output and wean supplemental oxygen as able. Okay to continue home Lopressor, doxazosin, Lasix and Imdur. Continue home statin. Holding Plavix for procedure. 3. Preoperative evaluation ? NSQIP score: Patient is at above average risk of any complication answers complication given age,partially dependent functional status, CHF and hypertension. ? Labs/imaging: Hemoglobin and kidney function stable at baseline. No further labs or imaging required preoperatively. Follow-up CBC and BMP postoperatively. ? Cardiac workup: Mild HFpEF exacerbation as noted above. Repeat echocardiogram, BNP and troponins ordered. ? Medications: Okay to continue Lopressor, doxazosin, Lasix and Imdur. Holding Plavix for procedure, will defer to orthopedics on timing of restarting. ? Prior procedural complications: None. ? Recommendation: Recommend holding on procedure until cardiac workup as above has resulted and patient has been optimized from a volume status standpoint. Will keep patient n.p.o. at midnight in case procedure can be done tomorrow afternoon. 4. Acute on chronic debility, history of bilateral knee replacements ? PT/OT/case management consulted as above. Lives in [facility], will likely be okay to return there on discharge. 5. Mild chronic anemia ? Hemoglobin stable at baseline 10-11 on admission. 6. Anxiety/depression ? Stable. Continue home bupropion and mirtazapine. 7. GERD ? Continue home PPI. DVT prophylaxis: SCDs CODE STATUS: DNR CCA, DNI Expected disposition: Likely back to detention, TBD Total clinical time spent by myself addressing the patient's medical issues, reviewing all the data, and collaborating with patient's care team: 75 minutes. Charges/Coding Visit Charges Inpatient E&M: 80914 Init Hosp L3 07/25/24 2220 Cosigner Signature (if applicable): CC: Dr. Hayden Diaz DO; Dr. Kam Ocampo Sr., DO~ Signed [facility]06-16-2025 Radiology Diagnostic study note [facility] Imaging Services [address] [place] [address] Femur Min 2 Views MR#: [id number] Acct: [id number] Name: KATHERINE JUDGE Rep #: [id number] : 1935 F 89 From: Brannon Bland MD PCP: Dr. Kam Ocampo Sr., Status: A DM IN Study:Femur Min 2 Views Date of Exam: Exam# [id number] Ordering Dr: Thanh Mclaughlin DO PROCEDURE: FEMUR MIN 2 VIEWS 07/25/2024 REASON FOR EXAM: FRACTURE SURGERY PLANNING TECHNIQUE: FEMUR MIN 2 VIEWS COMPARISON: 07/25/2024 radiograph. FINDINGS: Right knee arthroplasty. Nondisplaced intertrochanteric fracture of the right femur. Degenerative changes of the right hip. RAD/Femur Min 2 Views IMPRESSION: Nondisplaced intertrochanteric fracture. Reading Location: [place] [address] CC: Dr. Kam Ocampo Sr., DO; Dr. Thanh Mclaughlin DO ~ Remotely Piloted Vehicle Controller: Signed [facility]06-16-2025 Consult note Author Thanh Mclaughlin [facility] Note Date/Time July 25, 2024 5:10 pm [facility] Medical Records Department [address] [place] [address] Consultation 07/25/24 1706 MR#: [id number] Acct: [id number] Name: KATHERINE JUDGE Rep #:[id number] : 1935 89 From: Thanh Mclaughlin DO [...] years ago with Dr. Malcom Herron in [facility]. She is on Plavix [facility] Medical History (Updated 07/25/24 @ 17:[address] Thanh Mclaughlin DO) Polyneuropathy PVD (peripheral vascular disease) Osteoporosis Hypothyroidism [...] her son who is her power of thermoscrew operator Appearance: cooperative Extremity Extremity Narrative: Exquisitely positive [...] % (Auto) 69.2, Lymph % (Auto) 22.9, [place] % (Auto) 6.2, Eos % (Auto) 0.9, [...] of the proximal right femur. Reading Location: [facility]-1 Chest X-Ray 07/25/24 15:15 IMPRESSION: Cardiomegaly and vascular congestion with atelectasis at the lung bases. Reading Location: [facility]--1 07/25/24 1710 <Electronically signed by Thanh Mclaughlin DO> Cosigner Signature (if applicable): CC: Dr. Kam Ocampo Sr., ~ Signed [facility] Work Phone: 1(754) 870-468506-16-2025 Evaluation note* Diagnosis Onset Date Resolution Status Admit Date 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) acute July 25, 2024 4:51pm Closed intertrochanteric fra cture of right hip acute July 25, 2024 4:51pm Elevated blood pressure reading acut e July 25, 2024 4:51pm Fall acute July 25 4:51pm [facility] Work Phone: 1(991) 691-567406-16-2025 Consult note [facility] Medical Records Department [address] [place] [address] Consultation 07/25/24 1706 MR#: [id number] Acct: [id number] Name: KATHERINE JUDGE Rep #:[id number] : 1935 89 From: Thanh Mclaughlin DO [...] years ago with Dr. Malcom Herron in [facility]. She is on Plavix [facility] Medical History (Updated 07/25/24 @ 17:08 by [...] (Updated 07/25/24 @ 14:[address] Jacobo Moya DO) History of cataract surgery History of lysis of adhesions Hx of hysterectomy Hx of total knee replacement Presence of aortocoronary bypass graft Social History Smoking Status: Former smoker Physical Exam Const alert, oriented x3 and no apparent distress Constitutional Narrative: She is seen with her son who is her power of thermoscrew operator Appearance: cooperative Extremity Extremity Narrative: Exquisitely positive [...] % (Auto) 69.2, Lymph % (Auto) 22.9, [place] % (Auto) 6.2, Eos % (Auto) 0.9, [...] of the proximal right femur. Reading Location: [facility]-1 Chest X-Ray 07/25/24 15:15 IMPRESSION: Cardiomegaly and vascular congestion with atelectasis at the lung bases. Reading Location: [facility]-1 07/25/24 1710 Cosigner Signature (if applicable): CC: Dr. Kam Ocampo Sr., DO~ Signed [facility]06-16-2025 [facility] Medical Records Department [address] [place] [address] Consultation 07/25/24 1706 MR#: [id number] Acct: [id number] Name: NUKATHERINE Wilber Rep #: [id number] : 1935 89 From: Thanh Mclaughlin DO PCP: Dr. Kam Ocampo Sr., DO Status:REG ER Location: ED Assessment Plan Assessment/Plan (1) Closed intertrochanteric fracture of right hip: QUALIFIERS: Encounter type: initial encounter Fracture alignment: displaced Q ualified Code(s): S72.141A - Displaced intertrochanteric fracture of right femur, initial encounter for closed fracture PLAN: [...] years ago with Dr. Malcom Herron in [facility]. She is on Plavix [facility] Medical History (Updated 07/25/24 @ 17:08 by [...] her son who is her power of thermoscrew operator Appearance: cooperative Extremity Extremity Narrative: Exquisitely positive [...] % (Auto) 69.2, Lymph % (Auto) 22.9, [place] % (Auto) 6.2, Eos % (Auto) 0.9, Baso % (Auto) 0.4, Absolute Neuts (auto) 5.3, Absolute Lymphs (auto) 1.75, Nucleated RBC % 0, PT 13.0, INR 1.0, APTT 27.1, Sodium 134, Potassium 5.0, Chloride 98, Carbon Dioxide 26.5, Anion Gap 9, BUN 13, Creatinine 0.92, Est GFR (MDRD) Non-Af 60, BUN/Creatinine Ratio 13.5, Glucose 126 H, Calcium 8.8 Imaging (more content not included)...[facility]06-16-2025 Radiology Diagnostic study note [facility] Imaging Services [address] [place], [place] [address] Chest 1 View (Portable) MR#: [id number] Acct: [id number] Name: KTAHERINE JUDGE Rep #: [id number] : 1935 F 89 From: Reyes Haynes MD PCP: Dr. Kam Ocampo Sr., DO Status: R EG ER Study:Chest 1 View (Portable) Date of Exam: 07/25/24 Exam# [id number] Ordering Dr: Jacobo Moya DO PROCEDURE: CHEST [...] atelectasis at the lung bases. Reading Location: [place] [address] CC: Dr. Kam Ocampo Sr., DO; Dr. Jcaobo Moya, ~ Remotely Piloted Vehicle Controller: Signed [facility]06-16-2025 Radiology Diagnostic study note [facility] Imaging Services [address] [place] [address] HIP, UNI W/ Pelvis 2-3 Views MR#: [id number] Acct: [id number] Name: KATHERINE JUDGE Rep #: [id number] : 1935 F 89 From: Reyes Haynes MD PCP: Dr. Kam Ocampo Sr., Status: R EG ER Study:HIP, UNI W/ Pelvis 2-3 Views Date of Ex am: 07/25/24 Exam# [id number] Ordering Dr: Jacobo Moya DO PROCEDURE: HIP, [...] of the proximal right femur. Reading Location: [facility]- CC: Dr. Kam Ocampo Sr., ; Dr. Jacobo Moya DO ~ Remotely Piloted Vehicle Controller: Signed [facility]09-28-2023 Discharge summary Author Yandel Matute [facility] November 06, 2022 8:16pm Note Date/Time November 06, 2022 8:17pm [facility] Medical Records Department [address] [place] [address] Emergency Department Summary 11/06/22 MR#: [id number] Acct: [id number] Name: KATHERINE JUDGE Rep #:[id number] : 1935 87 From: Yandel Matute DO PCP: Dr. Kam Ocampo Sr., Status:R EG ER Location: ED HPI History of Present Illness Chief Complaint: Neuro S/Sx Narrative Narrative: 87-year-old female presenting with confusion. Initial report was that she had facial droop and slurred speech however speaking with her family they stated this occurred last week when she was seen for stroke and received tenecteplase. She was admitted to the hospital she had MRIs performed. These were negative. Echocardiogram was normal. Patient has been doing well with PT. Apparently today she had more confusion and was sent to the ER out of concern for TIA. Patient is on Plavix. [facility] Medical History Age-related physical debility Atherosclerotic heart disease of [place] coronary artery without angina pectoris Calculus of gallbladder and bile duct without cholecystitis without obstruction Constipation, unspecified Depression, unspecified Diaphragmatic hernia without obstruction or gangrene Difficulty in walking, not elsewhere classified Essential hypertension Gout, unspecified Hyperthyroidism Noninfective gastroenteritis and colitis, unspecified Other lack of coordination Other specified disorders of white blood cells Personal history of other diseases of digestive system TIA (transient ischemic attack) Home Medications Lactobacillus-Bifidobacterium 30 billion cell capsule,delayed release (Ultimate Harrison Probiotic) 1 cap PO DAILY 10/30/22 [History Last Taken Unknown] acetaminophen 325 mg capsule (Tylenol) 500 mg PO BID 10/30/22 [History Last Taken Unknown] azelastine 137 mcg (0.1 %) nasal spray aerosol 1 spray intranasal BID 10/30/22 [History Last Taken Unknown] bupropion HCl 150 mg 24 hr tablet, extended release 150 mg PO DAILY 10/30/22 [History Last Taken Unknown] calcium carbonate 500 mg calcium (1,250 mg) chewable tablet (Calcium 500) 500 mgPO DAILY 10/30/22 [History Last Taken Unknown] cetirizine 10 mg capsule (All Day Allergy (cetirizine)) 10 mg PO DAILY 10/30/22 [History Last Taken Unknown] clopidogrel 75 mg tablet 75 mg PO .thu10/30/22 [History Last Taken 10/27/22] dicyclomine 10 mg capsule 10 mg PO Q6H 10/30/22 [History Last Taken Unknown] doxazosin 2 mg tablet (Cardura) 2 mg PO DAILY 10/30/22 [History Last Taken 10/30/22] fluticasone propionate 50 mcg/actuation nasal spray,suspension (24 Hour Allergy Relief) 1 spray intranasal DAILY 10/30/22 [History Last Taken Unknown] food supplemt, lactose-reduced (Ensure oral liquid) 8 ml PO DAILY 10/30/22 [History Last Taken Unknown] furosemide 20 mg tablet (Lasix) 20 mg PO DAILY 10/30/22 [History Last Taken Unknown] gabapentin 600 mg tablet 600 mg PO BID 10/30/22 [History Last Taken Unknown] guaifenesin 100 mg/5 mL oral liquid (Chest Congestion Relief) 200 mg PO Q8 10/30/22 [History Last Taken Unknown] inulin 2 gram chewable tablet (Fiber Gummies) 1 g PO DAILY 10/30/22 [History Last Taken Unknown] isosorbide mononitrate 30 mg tablet,extended release 24 hr 30 mg PO DAILY 10/30/22 [History Last Taken Unknown] metoprolol tartrate 25 mg tablet 25 mg PO BID 10/30/22 [History Last Taken Unknown] mirtazapine 30 mg tablet 30 mg PO QHS 10/30/22 [History Last Taken Unknown] montelukast 10 mg tablet 10 mg PO QHS 10/30/22 [History Last Taken Unknown] multivitamin (Daily Multi-Vitamin tablet) 1 tab PO DAILY 10/30/22 [History Last Taken Unknown] pantoprazole 40 mg tablet,delayed release 40 mg PO DAILY 10/30/22 [History Last Taken Unknown] potassium chloride 20 mEq tablet,extended release (K-Tab) 20 meq PO DAILY 10/30/22 [History Last Taken Unknown] atorvastatin 40 mg tablet 40 mg PO QHS 20 days #30 tabs 11/02/22 [Rx Last Taken Unknown] Allergy/AdvReac Type Severity Reaction Status Date / Time cephalexin Allergy NEEDS Verified 11/06/22 16:25 FOLLOW-UP clarithromycin Allergy NEEDS Verified 11/06/22 16:25 FOLLOW-UP clindamycin Allergy NEEDS Verified 11/06/22 16:25 FOLLOW-UP doxazosin Allergy NEEDS Verified 11/06/22 16:25 FOLLOW-UP erythromycin base Allergy NEEDS Verified 11/06/22 16:25 FOLLOW-UP eszopiclone Allergy NEEDS Verified 11/06/22 16:25 FOLLOW-UP Fish Containing Products Allergy NEEDS Verified 11/06/22 16:25 FOLLOW-UP fish derived Allergy NEEDS Verified 11/06/22 16:25 FOLLOW-UP lincomycin Allergy NEEDS Verified 11/06/22 16:25 FOLLOW-UP lorazepam Allergy NEEDS Verified 11/06/22 16:25 FOLLOW-UP NSAIDS (Non-Steroidal Allergy NEEDS Verified 11/06/22 16:25 Anti-Inflamma FOLLOW-UP Penicillins Allergy NEEDS Verified 11/06/22 16:25 FOLLOW-UP rofecoxib Allergy NEEDS Verified 11/06/22 16:25 FOLLOW-UP salicylates Allergy NEEDS Verified 11/06/22 16:25 FOLLOW-UP temazepam Allergy NEEDS Verified 11/06/22 16:25 FOLLOW-UP Tetracyclines Allergy NEEDS Verified 11/06/22 16:25 FOLLOW-UP trazodone Allergy NEEDS Verified 11/06/22 16:25 FOLLOW-UP Surgical History Presence of aortocoronary bypass graft Social History Smoking Status: Never smoker ROS ROS ED Constitutional Constitutional ED: Denies chills, fever(s) or sweats Eyes Eyes: Denies blurry vision or change in vision ENT ENT ED: Denies ear pain or sore throat Cardiovascular Cardiovascular: Denies chest pain, palpitations or racing heartbeat Respiratory/Chest Respiratory/Chest: Denies cough, dyspnea or sputum Gastrointestinal Gastrointestinal: Denies abdominal pain, constipation, diarrhea, nausea or vomiting Genitourinary Genitourinary ED: Denies dysuria, hematuria or urinary frequency Musculoskeletal Musculoskeletal: Denies arthralgias, myalgias or neck pain Integumentary Denies abscess, Abrasions or rash Neurologic Neurologic: Denies headache(s), paresthesias or weakness Psychiatric Psychiatric: Denies anxiety, depression, suicidal ideation or suicidal thoughts Endocrine Endocrinology: Denies polydipsia or polyuria EXAM Physical Exam Const Vital Signs: 11/06/22 16:27 11/06/22 17:40 11/06/22 18:10 Temperature 98.5 F Temperature Source Oral Pulse Rate 78 83 79 Respiratory Rate 18 22 H 18 Blood Pressure 149/77 H 122/98 H 134/88 H Blood Pressure Mean 101 106 103 Pulse Ox 98 97 99 Oxygen Delivery Method Nasal Cannula Room Air Nasal Cannula Oxygen Flow Rate (L/min) 3 3 11/06/22 18:30 11/06/22 19:00 11/06/22 19:30 Temperature 98.3 F Temperature Source Oral Pulse Rate 82 77 80 Respiratory Rate 20 H 16 16 Blood Pressure 153/79 H 162/82 H 156/84 H Blood Pressure Mean 103 108 108 Pulse Ox 97 99 98 Oxygen Delivery Method Nasal Cannula Nasal Cannula Nasal Cannula Oxygen Flow Rate (L/min) 3 3 3 Positive well nourished General Appearance ED: NAD HEENT Reports moist mucous membranes Eyes PERRL and EOMs intact bilaterally Resp normal respiratory effort and clear to auscultation bilaterally Auscultation: Negative for rales, rhonchi or wheezes Cardio regular rate and regular rhythm GI normal to inspection, nondistended, normoactive bowel sounds Neuro oriented x3 and CN's II-XII intact bilaterally Sensorium / Orientation: alert Motor Exam: strength 5/5 throughout Psych Psych Narrative: Slightly confused Skin no rashes or lesions noted Skin Narrative: NIH stroke scale score 1 for aphasia General Skin Exam: Negative for jaundice MDM MDM MDM Narrative Medical decision making narrative: Presenting with confusion but has not had any facial droop or slurred speech perfamily this was last week when she was seen in the ER and had tenecteplase. Started a full work-up for that. Patient's NIH stroke scale score is 1 for aphasia however she and the family report that this is intermittent since she was here last. Segundo includes TIA, stroke, intracranial hemorrhage, dehydration, electrode abnormalities, acute coronary syndrome, pneumonia, UTI. CBC was obtained to assess for blood cell count, hemoglobin, platelets. BMP to assess renal function electrolytes. High-sensitivity troponin EKG to assess for ischemia or dysrhythmia. Chest x-ray to rule out pneumonia. CT brain was performed to rule intracranial hemorrhage or stroke. It was concerning for bibasilar infiltrates however this is unchanged from previous chest x-ray the patient is not a leukocytosis. She not short of breath. Patient has normal vital signs. I do not believe she has pneumonia. EKG sinus rhythm with frequent PVCs and right bundle branch block, interpretation. Brain was negative. Since very troponin is within normal limits. Urinalysis negative forinfection. Patient's work-up ultimately negative without evidence of core otherabnormality. Her story sounds more like confusion which is intermittent over the last week. I do not believe she is admission. She will be discharged back to her nursing facility. Family amenable to this. Impression: 1. Confusion 2. History of aphasia Lab Data Labs: Laboratory Results - last 24 hr 11/06/22 11/06/22 17:30 18:15 WBC 7.4 RBC 3.19 L Hgb 10.6 L Hct 32.3 L MCV 101.3 H MCH 33.2 H MCHC 32.8 RDW Std Deviation 50.0 H RDW Coeff of Tamera 13.6 Plt Count 240 MPV 9.6 Immature Gran % (Auto) 0.500 Neut % (Auto) 60.8 Lymph % (Auto) 29.3 [place] % (Auto) 7.4 Eos % (Auto) 1.6 Baso % (Auto) 0.4 Absolute Neuts (auto) 4.5 Absolute Lymphs (auto) 2.18 Nucleated RBC % 0 PT 13.1 INR 1.0 APTT 25.3 Sodium 137 Potassium 4.2 Chloride 102 Carbon Dioxide 34.0 H Anion Gap 1 L BUN 21 H Creatinine 0.88 Estim Creat Clear Calc 32.96 Est GFR (MDRD) Af Amer 78 Est GFR (MDRD) Non-Af 65 BUN/Creatinine Ratio 23.9 H Glucose 99 Calcium 10.3 H Troponin I High Sens 6 Urine Color Yellow Urine Clarity Clear Urine pH 7.0 Ur Specific Sulphur 1.010 Urine Protein Negative Urine Glucose (UA) Normal Urine Ketones Negative Urine Occult Blood Negative Urine Nitrite Negative Urine Bilirubin Negative Urine Urobilinogen Normal Ur Leukocyte Esterase 25 H Urine RBC 0 SEEN Urine WBC 0-5 SEEN Ur Squamous Epith Cells 0 SEEN Urine Bacteria 0 SEEN Urine Mucus 0 SEEN Radiography Diagnostic Testing: Clinical Impression(s) from Imaging Studies Brain CT 11/06/22 17:40 IMPRESSION: Volume loss with chronic white matter changes. No acute intracranial findings. Electronically Signed: Santos Neal MD at 18:11 EDT Reading Location ID and State: [facility] / [place] Tel , Service support , ADDENDUM: 11/06/22 1825 IMPRESSION: Volume loss with chronic white matter changes. No acute intracranial findings. N.B. : The above Results were Read Back by Santos Neal MD to Yandel Matute MD, and understanding confirmed on 11/06/2022 18:18:30 (ET). Electronically Signed: Santos Neal MD at 18:11 EDT Reading Location ID and State: [facility] / [place] Tel , Service support , Chest X-Ray 11/06/22 17:55 IMPRESSION: Bibasilar infiltrates with right basilar consolidation, findings unchanged from prior chest x-ray. Recommend short-term follow-up for resolution. Electronically Signed: Santos Neal MD at 18:13 EDT Reading Location ID and State: [facility] / [place] Tel , Service support , Discharge Plan Triage Chief Complaint: Neuro S/Sx ED Provider: Yandel Matute Dx/Rx/DC Orders Prescriptions: No Action Ensure Liquid 8 ml PO DAILY bupropion HCl 150 mg tablet extended release 24 hr 150 mg PO DAILY calcium carbonate [Calcium 500] 500 mg calcium (1,250 mg) tablet,chewable 500 mg PO DAILY All Day Allergy (cetirizine) 10 mg capsule 10 mg PO DAILY clopidogrel 75 mg tablet 75 mg PO .thu doxazosin [Cardura] 2 mg tablet 2 mg PO DAILY Fiber Gummies 2 gram tablet,chewable 1 g PO DAILY fluticasone propionate [24 Hour Allergy Relief] 50 mcg/actuation spray,suspension 1 spray intranasal DAILY Rx Instructions: administer into each nostril isosorbide mononitrate 30 mg tablet extended release 24 hr 30 mg PO DAILY furosemide [Lasix] 20 mg tablet 20 mg PO DAILY mirtazapine 30 mg tablet 30 mg PO QHS montelukast 10 mg tablet 10 mg PO QHS multivitamin [Daily Multi-Vitamin] Tablet 1 tab PO DAILY pantoprazole 40 mg tablet,delayed release (DR/EC) 40 mg PO DAILY potassium chloride [K-Tab] 20 mEq tablet extended release 20 meq PO DAILY Ultimate Harrison Probiotic 30 billion cell capsule,delayed release(DR/EC) 1 cap PO DAILY azelastine 137 mcg (0.1 %) aerosol,spray 1 spray intranasal BID Rx Instructions: administer into each nostril gabapentin 600 mg tablet 600 mg PO BID metoprolol tartrate 25 mg tablet 25 mg PO BID acetaminophen [Tylenol] 325 mg capsule 500 mg PO BID guaifenesin [Chest Congestion Relief] 100 mg/5 mL liquid 200 mg PO Q8 dicyclomine 10 mg capsule 10 mg PO Q6H atorvastatin 40 mg Tablet 40 mg PO QHS 20 Days Qty: 30 2RF Primary Care Provider: Kam Ocampo Sr. Referrals: Kam Ocampo Sr., [Primary Care Provider] - What to do if you have Problems For any increased pain, shortness of breath, bleeding, nausea or vomiting, chestpain, or any unexpected problems, contact your Primary Care Provider. Call [facility] ([phone]) or report to the closest Emergency Room. Call 911 if necessary. 11/06/222015 <Electronically signed by Yandel Matute DO> Cosigner Signature (if applicable): CC: Dr. Kam Ocampo Sr., ~ Signed [facility] Work Phone: [phone]) 168-374809-23-2023 Progress note Author Neymar Cunningham [facility] November 01, 2022 2:44pm Note Date/Time November 01, 2022 7:47am [facility] Medical Records Department [address] [place] [address] Progress Note - Hospitalist 11/01/22 0745 MR#: [id number] Acct: [id number] Name: NUKATHERINE Rep #:[id number] : 1935 87 From: Neymar Herrera PCP: Dr. Kam Ocampo Sr., Status:A DM IN Location: ICU CVICU20 3-1 Reason for Visit Reason for Visit: Diagnoses Cerebral infarction, unspecified (10/30/22) Objective Data Objective Data Vital Signs: Vital Signs Temp Pulse Resp BP Pulse Ox O2 Del Method O2 Flow Rate 98.2 F 73 19 H 178/73 H 97 Nasal Cannula 2 11/01/22 06:00 11/01/22 06:00 11/01/22 06:00 11/01/22 06:00 11/01/22 06:00 11/01/22 06:00 11/01/22 06:00 Oxygen Flow Rate (L/min) 2 Oxygen Delivery Method Nasal Cannula Weight: 105 lb 6.4 oz Body Mass Index (BMI) 20.7 Intake & Output: Intake and Output for Last 24 Hours 10/30/22 10/31/22 11/01/22 23:59 23:59 23:59 Intake Total 3632.50 / 3632.50 160 / 160 Output Total 550 / 550 1370 / 1870 1850 / 1850 Balance -550 / -550 2262.50 / 1762.50 -1690 / -1690 Lab / Micro Data 10/31/22 03:45 10/31/22 03:45 Radiography Diagnostic Testing: Radiology Impression Echocardiogram 10/30/22 22:48 Interpretation Summary The estimated ejection fraction is 70 %. Unable to assess diastolic dysfunction. The left atrium is severely enlarged. Mild (1+) mitral valve insufficiency. Ordering Physician: Hayden Diaz Referring Physician: Kam Ocampo Performed By: Jeannie Bella RDCS Brain CT 10/31/22 21:00 IMPRESSION: Age-related changes of the brain. Electronically Signed: Galileo Britt DO at 22:21 EDT Reading Location ID and State: [facility] / [place] Tel [phone], Service support , Physical Exam Narrative Seen and examined. Her main symptoms was language deficit including unable to understand and verbalize and dysarthria has much improved almost resolved. Patient can understand and speak in full sentences. Speech makes sense.. Physical exam General: Alert, oriented to daylight. Comprehensibility and communication limited. Cooperative HEENT: Atraumatic, PERRLA, EOMI, Normocephalic Oral: No Gingival or Mucosal Lesions/ Ulcerations Neck: Supple, No JVD, Negative Carotid Bruits Lungs: Air entry diminished in bilateral lung bases. No crepitation/rhonchi Cardiovascular: Regular rate, Regular Rhythm, Normal S1, Normal S2, No murmurs Abdomen: Bowel Sounds Present, Soft, Non Tender, Non-Distended : No renal angle tenderness. No suprapubic tenderness. Extremities: No edema, Capillary Refill Less than 3 Seconds Skin: No rashes, No breakdown Musculoskeletal: No Tenderness to Palpation of Joints or Extremities Neurological: Cranial nerves II-XII grossly intact, DTR 2+/4. NIH 0. Normal symmetrical facial movement. Muscle strength, no drift upper or lower extremity. Language deficit and dysarthria resolved. Psychiatric: Assessment & Plan Assessment/Plan (1) Acute CVA (cerebrovascular accident): PLAN: Plan Patient is an 87-year-old female with history of chronic debility, TIA, CAD, hypertension and depression who presented to [facility] ED from detention on 10/30/2022 for expressive aphasia and dysarthria. 1. Acute CVA: Patient is admitted in ICU after tenecteplase given in ED. CT brain without contrast showed an area of low-attenuation in the left parietal lobe consistent with age-indeterminate ischemia, perhaps acute. CTA head/neck was negative for any acute pathology. Evaluated by [facility] teleneurology in ED, NIH score of 6. PT, OT, speech therapy/swallow evaluation and management, nursing NIH stroke scale, BP and glucose monitoring and control as per stroke protocol. TSH, A1c fasting lipid profile tomorrow AM. MRI brain and2D echo with bubble contrast study ordered Continue home statin. 11/01: Echo reported as no Doppler evidence of ASD; bubble contrast study negative for [id number] interatrial shunt. LA severely enlarged. EF 70%. MRI brain reports no acute or subacute ischemic infarct or acute intracranial abnormality. SOC consult ordered 2. Chronic debility Patient's family notes that she was recently hospitalized at an outside hospitalfor medical concerns unrelated to current concern for acute CVA. She was discharged to a half-way facility, with plans for long-term placement in a detention after that. Has been residing at the [facility], and family has been happy with this arrangement. ? PT/OT/case management consulted. Fall precautions in place. Chronic medical conditions: ? Hypertension, history of CAD: Continue home metoprolol, isosorbide mononitrate, Lasix, potassium supplement, doxazosin. ? Depression: Continue home bupropion, mirtazapine at night. DVT prophylaxis: SCDs CODE STATUS: DNR CCA, DO NOT INTUBATE Expected disposition: Long-term care facility Charges/Coding Visit Charges Inpatient E&M: 39132 Subs Hosp L3 11/01/22 3851 <Electronically signed by Neymar Cunningham MD> Cosigner Signature (if applicable): CC: ~ Signed [facility] Work Phone: 1(873) 441-637709-22-2023 Progress note Author Neymar Cunningham [facility] October 31, 2022 12:03pm Note Date/Time October 31, 2022 11:13am [facility] Medical Records Department [address] [place] [address] Progress Note - Hospitalist 10/31/22 1111 MR#: [id number] Acct: [id number] Name: KATHERINE JUDGE Rep #:[id number] : 1935 87 From: Neymar Herrera PCP: Dr. Kam Ocampo Sr., DO Status:A DM IN Location: ICU CVICU20 3-1 Reason for Visit Reason for Visit: Diagnoses Cerebral infarction, unspecified (10/30/22) Objective Data Objective Data Vital Signs: Vital Signs Temp Pulse Resp BP Pulse Ox O2 Del Method O2 Flow Rate 98.1 F 71 16 151/76 H 99 Nasal Cannula 2 10/31/22 07:03 10/31/22 08:33 10/31/22 08:33 10/31/22 08:33 10/31/22 08:33 10/31/22 08:33 10/31/22 08:33 Oxygen Flow Rate (L/min) 2 Oxygen Delivery Method Nasal Cannula Weight: 105 lb 3.203 oz Body Mass Index (BMI) 20.5 Intake & Output: Intake and Output for Last 24 Hours 10/29/22 10/30/22 10/31/22 23:59 23:59 23:59 Intake Total 1775.83 / 1775.83 Output Total 550 / 550 700 / 700 Balance -550 / -550 1075.83 / 1075.83 Lab / Micro Data 10/31/22 03:45 10/31/22 03:45 Labs: Laboratory Results - last 24 hr 10/30/22 20:20: WBC 5.8, RBC 3.10 L, Hgb 10.1 L, Hct 32.2 L, MCV 103.9 H, MCH 32.6 H, MCHC 31.4 L, RDW Std Deviation 52.5 H, RDW Coeff of Tamera 13.6, Plt Count 195, MPV 9.2, Immature Gran % (Auto) 0.300, Neut % (Auto) 55.1, Lymph % (Auto) 33.7, [place] % (Auto) 8.1, Eos % (Auto) 2.1, Baso % (Auto) 0.7, Absolute Neuts (auto) 3.2, Absolute Lymphs (auto) 1.95, Nucleated RBC % 0, PT 13.2, INR 1.0, APTT 27.1, Sodium 136, Potassium 4.3, Chloride 103, Carbon Dioxide 32.0, Anion Gap 1 L, BUN 23 H, Creatinine 0.85, Estim Creat Clear Calc 34.02, Est GFR (MDRD)Af Amer 81, Est GFR (MDRD) Non-Af 67, BUN/Creatinine Ratio 27.0 H, Glucose 107 H, Calcium 8.7, Troponin I High Sens 5 10/30/22 22:00: Hemoglobin A1c 5.5, Triglycerides 72, Cholesterol 94, LDL Cholesterol 47, VLDL Cholesterol 14, HDL Cholesterol 33 L, Urine Color Yellow, Urine Clarity Clear, Urine pH 8.0, Ur Specific Sulphur 1.010, Urine Protein Negative, Urine Glucose (UA) Normal, Urine Ketones Negative, Urine Occult Blood Negative, Urine Nitrite Negative, Urine Bilirubin Negative, Urine Urobilinogen Normal, Ur Leukocyte Esterase Negative, Urine RBC 0 SEEN, Urine WBC 0 SEEN, Ur Squamous Epith Cells 0 SEEN, Urine Bacteria 0 SEEN, Urine Mucus 0 SEEN 10/31/22 03:45: WBC 7.6, RBC 3.16 L, Hgb 10.5 L, Hct 32.7 L, MCV 103.5 H, MCH 33.2 H, MCHC 32.1, RDW Std Deviation 51.9 H, RDW Coeff of Tamera 13.4, Plt Count 195, MPV 8.9, Sodium 141, Potassium 3.8, Chloride 108 H, Carbon Dioxide 32.0, Anion Gap 1 L, BUN 17, Creatinine 0.72, Estim Creat Clear Calc 29.01, Est GFR (MDRD) Af Amer 99, Est GFR (MDRD) Non-Af 82, BUN/Creatinine Ratio 23.8 H, Glucose 95, Calcium 8.6 Radiography Diagnostic Testing: Radiology Impression Brain CT 10/30/22 20:06 IMPRESSION: Area of low-attenuation in the left parietal lobe near the parieto-occipital sulcus is present extending through the cortex which is consistent with with age indeterminate ischemia, perhaps acute. Additional chronic ischemic changes. ASPECTS: 9 or 10. Electronically Signed: Carmelo Eaton DO at 20:24 EDT , ADDENDUM: 10/30/222032 IMPRESSION: Area of low-attenuation in the left parietal lobe near the parieto-occipital sulcus is present extending through the cortex which is consistent with with age indeterminate ischemia, perhaps acute. Additional chronic ischemic changes. ASPECTS: 9 or 10. N.B. : The above Results were Read Back by Carmelo Eaton DO to Amalia Donahue DO, and understanding confirmed on 10/30/2022 20:26:46 (ET). Electronically Signed: Carmelo Eaton DO at 20:24 EDT , Head/Neck CTA 10/30/22 20:07 IMPRESSION: 1. No evidence of intracranial arterial stenosis or occlusion. 2. Moderate atherosclerosis of the left carotid bifurcation and carotid bulb with approximately 50% stenosis of the left internal carotid artery by NASCET criteria. 3. Mild atheroma of the right carotid bifurcation and carotid bulb resulting in less than 50% stenosis of the right internal carotid artery by NASCET criteria. 4. Degenerative changes in the cervical spine with at least moderate multilevel spinal canal and neural foraminal stenosis. Electronically Signed: Carmelo Eaton DO at 20:41 EDT , ADDENDUM: 10/30/222047 IMPRESSION: 1. No evidence of intracranial arterial stenosis or occlusion. 2. Moderate atherosclerosis of the left carotid bifurcation and carotid bulb with approximately 50% stenosis of the left internal carotid artery by NASCET criteria. 3. Mild atheroma of the right carotid bifurcation and carotid bulb resulting in less than 50% stenosis of the right internal carotid artery by NASCET criteria. 4. Degenerative changes in the cervical spine with at least moderate multilevel spinal canal and neural foraminal stenosis. N.B. : The above Results were Read Back by Carmelo Eaton DO to Amalia Donahue MD, and understanding confirmed on 10/30/2022 20:42:16 (ET). Electronically Signed: Carmelo Eaton DO at 20:41 EDT , Chest X-Ray 10/30/22 22:20 IMPRESSION: 1. Cardiomegaly and/or pericardial effusion. 2. Bibasilar pulmonary opacities which may be atelectasis or pneumonia and likely bilateral pleural effusions. 3. Status post CABG. Electronically Signed: Carmelo Eaton DO at 22:35 EDT , Brain CT 10/31/22 03:00 IMPRESSION: 1. No evidence of acute intracranial pathology. 2. Diffuse involutional changes and chronic ischemic small vessel white matter disease. AIDOC was utilized to assist in identifying pertinent positive findings. Electronically Signed: Tobi Gonzalez MD at 3:58 EDT , Physical Exam Narrative Seen and examined. Patient admitted with left parietal lobe ischemic stroke near parieto-occipital sulcus. Her main symptoms was language deficit including unable to understand and verbalize and dysarthria. As per the son the symptoms are improving but still speaks 2 words. Physical exam General: Alert, oriented to daylight. Comprehensibility and communication limited. Cooperative HEENT: Atraumatic, PERRLA, EOMI, Normocephalic Oral: No Gingival or Mucosal Lesions/ Ulcerations Neck: Supple, No JVD, Negative Carotid Bruits Lungs: Air entry diminished in bilateral lung bases. No crepitation/rhonchi Cardiovascular: Regular rate, Regular Rhythm, Normal S1, Normal S2, No murmurs Abdomen: Bowel Sounds Present, Soft, Non Tender, Non-Distended : No renal angle tenderness. No suprapubic tenderness. Extremities: No edema, Capillary Refill Less than 3 Seconds Skin: No rashes, No breakdown Musculoskeletal: No Tenderness to Palpation of Joints or Extremities Neurological: Cranial nerves II-XII grossly intact, DTR 2+/4. NIH 2. Normal symmetrical facial movement. Muscle strength, no drift upper or lower extremity. Lyme acid and dysarthria Psychiatric: Flat affect. Repetitive 2 words. Echolalia Assessment & Plan Assessment/Plan (1) Acute CVA (cerebrovascular accident): PLAN: Plan Patient is an 87-year-old female with history of chronic debility, TIA, CAD, hypertension and depression who presented to [facility] ED from detention on 10/30/2022 for expressive aphasia and dysarthria. 1. Acute CVA: Patient is admitted in ICU after tenecteplase given in ED. CT brain without contrast showed an area of low-attenuation in the left parietal lobe consistent with age-indeterminate ischemia, perhaps acute. CTA head/neck was negative for any acute pathology. Evaluated by [facility] teleneurology in ED, NIH score of 6. PT, OT, speech therapy/swallow evaluation and management, nursing NIH stroke scale, BP and glucose monitoring and control as per stroke protocol. TSH, A1c fasting lipid profile tomorrow AM. MRI brain and2D echo with bubble contrast study ordered Continue home statin. 2. Chronic debility Patient's family notes that she was recently hospitalized at an outside hospitalfor medical concerns unrelated to current concern for acute CVA. She was discharged to a half-way facility, with plans for long-term placement in a detention after that. Has been residing at the [facility], and family has been happy with this arrangement. ? PT/OT/case management consulted. Fall precautions in place. Chronic medical conditions: ? Hypertension, history of CAD: Continue home metoprolol, isosorbide mononitrate, Lasix, potassium supplement, doxazosin. ? Depression: Continue home bupropion, mirtazapine at night. DVT prophylaxis: SCDs CODE STATUS: DNR CCA, DO NOT INTUBATE Expected disposition: Long-term care facility Charges/Coding Visit Charges Inpatient E&M: 99087 Subs Hosp L3 10/31/22 1203 <Electronically signed by Neymar Cunningham MD> Cosigner Signature (if applicable): CC: ~ Signed [facility] Work Phone: 1(395) 582-717109-22-2023 Consult note Author Ajay Nieves [facility] October 31, 2022 9:32am Note Date/Time October 31, 2022 7:12am [facility] Medical Records Department [address] [place] [address] Consultation - Mold Repairer 10/31/22710 MR#: [id number] Acct: [id number] Name: KATHERINE JUDGE Rep #:[id number] : 1935 87 From: Ajay Nieves DO PCP: Dr. Kam Ocampo Sr., DO Status:A DM IN Location: ICU CVICU20 3-1 Assessment & Plan Assessment/Plan (1) Acute CVA (cerebrovascular accident): PLAN: Plan RECOMMENDATIONS: 1. Continue routine monitoring in ICU per protocol. 2. Obtain follow-up head imaging at 24 hours. 3. MRI brain tomorrow. 4. PT/OT evaluations. 5. Advance diet per speech therapy. IMPRESSIONS: 1. Acute CVA status post tenecteplase The patient presented to the hospital with acute strokelike symptoms including expressive aphasia and dysarthria. She ultimately received tenecteplase in the emergency department. Plan to continue routine monitoring per protocol in the intensive care unit. Maintain bedrest for 24 hours. Obtain repeat head imagingin 24 hours. Treat blood pressures in excess of 180/105 mmHg. Obtain transthoracic echocardiogram. PT/OT evaluations tomorrow. Obtain MRI brain tomorrow. 2. History of coronary artery disease/hypertension/depression Complicates care, management, recovery and prognosis. Continue home medicationsas indicated. This note was generated with Denty'sation software. It may contain incorrectwords, spelling, and punctuation that were not noted in checking the note beforesigning. HPI Consult Data Date of Consult: 10/31/22 HPI Narrative Reason for Consultation: CVA status post tenecteplase HPI Narrative: The patient is an 87-year-old female, with a history as outlined below, who presented to the emergency department on October 30 with dysarthria and confusion. The patient has a reported history of coronary artery disease, hypertension and depression. She was currently residing at the [facility]. On presentation to the emergency department, the patient was noted to be afebrile and hemodynamically stable. Initial laboratory evaluation revealed no evidence of a leukocytosis. Coagulation profile was within normal limits. Chemistry profile was unremarkable. Urine analysis was noncontributory. CT head revealed an area of low-attenuation in the left parietal lobe consistent with age-indeterminate ischemia, possibly acute. Stroke team was issued. Neurology consultation was obtained. There was no evidence of large vessel occlusion on CTA. The patient was ultimately treated with tenecteplase. She was then admitted to the medical intensive care unit for further management. [facility] Medical History (Updated 10/30/22 @ 21:30 by Andrews Chou) Age-related physical debility Atherosclerotic heart disease of [place] coronary artery without angina pectoris Calculus of gallbladder and bile duct without cholecystitis without obstruction Constipation, unspecified Depression, unspecified Diaphragmatic hernia without obstruction or gangrene Difficulty in walking, not elsewhere classified Essential hypertension Gout, unspecified Hyperthyroidism Noninfective gastroenteritis and colitis, unspecified Other lack of coordination Other specified disorders of white blood cells Personal history of other diseases of digestive system Home Medications Lactobacillus-Bifidobacterium 30 billion cell capsule,delayed release (Ultimate Harrison Probiotic) 1 cap PO DAILY 10/30/22 [History Last Taken Unknown] acetaminophen 325 mg capsule (Tylenol) 500 mg PO BID 10/30/22 [History Last Taken Unknown] atorvastatin 10 mg tablet 10 mg PO QHS 10/30/22 [History Last Taken Unknown] azelastine 137 mcg (0.1 %) nasal spray aerosol 1 spray intranasal BID 10/30/22 [History Last Taken Unknown] bupropion HCl 150 mg 24 hr tablet, extended release 150 mg PO DAILY 10/30/22 [History Last Taken Unknown] calcium carbonate 500 mg calcium (1,250 mg) chewable tablet (Calcium 500) 500 mgPO DAILY 10/30/22 [History Last Taken Unknown] cetirizine 10 mg capsule (All Day Allergy (cetirizine)) 10 mg PO DAILY 10/30/22 [History Last Taken Unknown] clopidogrel 75 mg tablet 75 mg PO .mon thu10/30/22 [History Last Taken 10/27/22] dicyclomine 10 mg capsule 10 mg PO Q6H 10/30/22 [History Last Taken Unknown] doxazosin 2 mg tablet (Cardura) 2 mg PO DAILY 10/30/22 [History Last Taken 10/30/22] fluticasone propionate 50 mcg/actuation nasal spray,suspension (24 Hour Allergy Relief) 1 spray intranasal DAILY 10/30/22 [History Last Taken Unknown] food supplemt, lactose-reduced (Ensure oral liquid) 8 ml PO DAILY 10/30/22 [History Last Taken Unknown] furosemide 20 mg tablet (Lasix) 20 mg PO DAILY 10/30/22 [History Last Taken Unknown] gabapentin 600 mg tablet 600 mg PO BID 10/30/22 [History Last Taken Unknown] guaifenesin 100 mg/5 mL oral liquid (Chest Congestion Relief) 200 mg PO Q8 10/30/22 [History Last Taken Unknown] inulin 2 gram chewable tablet (Fiber Gummies) 1 g PO DAILY 10/30/22 [History Last Taken Unknown] isosorbide mononitrate 30 mg tablet,extended release 24 hr 30 mg PO DAILY 10/30/22 [History Last Taken Unknown] metoprolol tartrate 25 mg tablet 25 mg PO BID 10/30/22 [History Last Taken Unknown] mirtazapine 30 mg tablet 30 mg PO QHS 10/30/22 [History Last Taken Unknown] montelukast 10 mg tablet 10 mg PO QHS 10/30/22 [History Last Taken Unknown] multivitamin (Daily Multi-Vitamin tablet) 1 tab PO DAILY 10/30/22 [History Last Taken Unknown] pantoprazole 40 mg tablet,delayed release 40 mg PO DAILY 10/30/22 [History Last Taken Unknown] potassium chloride 20 mEq tablet,extended release (K-Tab) 20 meq PO DAILY 10/30/22 [History Last Taken Unknown] Allergy/AdvReac Type Severity Reaction Status Date / Time cephalexin Allergy NEEDS Verified 10/30/22 20:19 FOLLOW-UP clarithromycin Allergy NEEDS Verified 10/30/22 20:19 FOLLOW-UP clindamycin Allergy NEEDS Verified 10/30/22 20:19 FOLLOW-UP doxazosin Allergy NEEDS Verified 10/30/22 20:19 FOLLOW-UP erythromycin base Allergy NEEDS Verified 10/30/22 20:19 FOLLOW-UP eszopiclone Allergy NEEDS Verified 10/30/22 20:19 FOLLOW-UP Fish Containing Products Allergy NEEDS Verified 10/30/22 20:19 FOLLOW-UP fish derived Allergy NEEDS Verified 10/30/22 20:19 FOLLOW-UP lincomycin Allergy NEEDS Verified 10/30/22 20:19 FOLLOW-UP lorazepam Allergy NEEDS Verified 10/30/22 20:19 FOLLOW-UP NSAIDS (Non-Steroidal Allergy NEEDS Verified 10/30/22 20:19 Anti-Inflamma FOLLOW-UP Penicillins Allergy NEEDS Verified 10/30/22 20:19 FOLLOW-UP rofecoxib Allergy NEEDS Verified 10/30/22 20:19 FOLLOW-UP salicylates Allergy NEEDS Verified 10/30/22 20:19 FOLLOW-UP temazepam Allergy NEEDS Verified 10/30/22 20:19 FOLLOW-UP Tetracyclines Allergy NEEDS Verified 10/30/22 20:19 FOLLOW-UP trazodone Allergy NEEDS Verified 10/30/22 20:19 FOLLOW-UP Surgical History (Updated 10/30/22 @ 21:30 by Andrews Chou) Presence of aortocoronary bypass graft Social History Smoking Status: Never smoker ROS ROS Narrative 10 systems were reviewed with pertinent positives as noted in the HPI above. Physical Exam Const alert and no apparent distress General Appearance: cooperative HEENT normocephalic, head/scalp atraumatic and moist oral mucous membranes Eyes PERRL and EOMs intact bilaterally Neck supple General: trachea midline Chest inspection of chest normal Resp normal respiratory effort Auscultation: Negative for rales, rhonchi or wheezes Cardio regular rate and regular rhythm GI normal to inspection, nondistended, normoactive bowel sounds Extremity no clubbing, cyanosis or edema Skin no rashes or lesions noted Neuro CN's II-XII intact bilaterally and no focal motor deficits Neuro Narrative: No significant dysarthria or expressive aphasia. Psych cooperative and affect normal Lab / Micro Data 10/31/22 03:45 10/31/22 03:45 Labs: Laboratory Results - last 24 hr 10/30/22 20:20: WBC 5.8, RBC 3.10 L, Hgb 10.1 L, Hct 32.2 L, MCV 103.9 H, MCH 32.6 H, MCHC 31.4 L, RDW Std Deviation 52.5 H, RDW Coeff of Tamera 13.6, Plt Count 195, MPV 9.2, Immature Gran % (Auto) 0.300, Neut % (Auto) 55.1, Lymph % (Auto) 33.7, [place] % (Auto) 8.1, Eos % (Auto) 2.1, Baso % (Auto) 0.7, Absolute Neuts (auto) 3.2, Absolute Lymphs (auto) 1.95, Nucleated RBC % 0, PT 13.2, INR 1.0, APTT 27.1, Sodium 136, Potassium 4.3, Chloride 103, Carbon Dioxide 32.0, Anion Gap 1 L, BUN 23 H, Creatinine 0.85, Estim Creat Clear Calc 34.02, Est GFR (MDRD)Af Amer 81, Est GFR (MDRD) Non-Af 67, BUN/Creatinine Ratio 27.0 H, Glucose 107 H, Calcium 8.7, Troponin I High Sens 5 10/30/22 22:00: Hemoglobin A1c 5.5, Triglycerides 72, Cholesterol 94, LDL Cholesterol 47, VLDL Cholesterol 14, HDL Cholesterol 33 L, Urine Color Yellow, Urine Clarity Clear, Urine pH 8.0, Ur Specific Sulphur 1.010, Urine Protein Negative, Urine Glucose (UA) Normal, Urine Ketones Negative, Urine Occult Blood Negative, Urine Nitrite Negative, Urine Bilirubin Negative, Urine Urobilinogen Normal, Ur Leukocyte Esterase Negative, Urine RBC 0 SEEN, Urine WBC 0 SEEN, Ur Squamous Epith Cells 0 SEEN, Urine Bacteria 0 SEEN, Urine Mucus 0 SEEN 10/31/22 03:45: WBC 7.6, RBC 3.16 L, Hgb 10.5 L, Hct 32.7 L, MCV 103.5 H, MCH 33.2 H, MCHC 32.1, RDW Std Deviation 51.9 H, RDW Coeff of Tamera 13.4, Plt Count 195, MPV 8.9, Sodium 141, Potassium 3.8, Chloride 108 H, Carbon Dioxide 32.0, Anion Gap 1 L, BUN 17, Creatinine 0.72, Estim Creat Clear Calc 29.01, Est GFR (MDRD) Af Amer 99, Est GFR (MDRD) Non-Af 82, BUN/Creatinine Ratio 23.8 H, Glucose 95, Calcium 8.[address] 10/30/22 20:06 IMPRESSION: Area of low-attenuation in the left parietal lobe near the parieto-occipital sulcus is present extending through the cortex which is consistent with with age indeterminate ischemia, perhaps acute. Additional chronic ischemic changes. ASPECTS: 9 or 10. Electronically Signed: Carmelo Eaton DO at 20:24 EDT , ADDENDUM: 10/30/222032 IMPRESSION: Area of low-attenuation in the left parietal lobe near the parieto-occipital sulcus is present extending through the cortex which is consistent with with age indeterminate ischemia, perhaps acute. Additional chronic ischemic changes. ASPECTS: 9 or 10. N.B. : The above Results were Read Back by Carmelo Eaton DO to Amalia Donahue DO, and understanding confirmed on 10/30/2022 20:26:46 (ET). Electronically Signed: Carmelo Eaton DO at 20:24 EDT , Head/Neck CTA 10/30/22 20:07 IMPRESSION: 1. No evidence of intracranial arterial stenosis or occlusion. 2. Moderate atherosclerosis of the left carotid bifurcation and carotid bulb with approximately 50% stenosis of the left internal carotid artery by NASCET criteria. 3. Mild atheroma of the right carotid bifurcation and carotid bulb resulting in less than 50% stenosis of the right internal carotid artery by NASCET criteria. 4. Degenerative changes in the cervical spine with at least moderate multilevel spinal canal and neural foraminal stenosis. Electronically Signed: Carmelo Eaton DO at 20:41 EDT , ADDENDUM: 10/30/222047 IMPRESSION: 1. No evidence of intracranial arterial stenosis or occlusion. 2. Moderate atherosclerosis of the left carotid bifurcation and carotid bulb with approximately 50% stenosis of the left internal carotid artery by NASCET criteria. 3. Mild atheroma of the right carotid bifurcation and carotid bulb resulting in less than 50% stenosis of the right internal carotid artery by NASCET criteria. 4. Degenerative changes in the cervical spine with at least moderate multilevel spinal canal and neural foraminal stenosis. N.B. : The above Results were Read Back by Carmelo Eaton DO to Amalia Donahue MD, and understanding confirmed on 10/30/2022 20:42:16 (ET). Electronically Signed: Carmelo Eaton DO at 20:41 EDT , Chest X-Ray 10/30/22 22:20 IMPRESSION: 1. Cardiomegaly and/or pericardial effusion. 2. Bibasilar pulmonary opacities which may be atelectasis or pneumonia and likely bilateral pleural effusions. 3. Status post CABG. Electronically Signed: Carmelo Eaton DO at 22:35 EDT , Brain CT 10/31/22 03:00 IMPRESSION: 1. No evidence of acute intracranial pathology. 2. Diffuse involutional changes and chronic ischemic small vessel white matter disease. AIDOC was utilized to assist in identifying pertinent positive findings. Electronically Signed: Tobi Gonzalez MD at 3:58 EDT , Charges/Coding Visit Charges Inpatient E&M: 77602 Init Hosp L3 10/31/22 0932 <Electronically signed by Ajay Nieves DO> Cosigner Signature (if applicable): CC: Dr. Hayden Diaz DO; Dr. Kam Ocampo Sr., DO~ Signed [facility] Work Phone: 1([phone]) 504-281009-22-2023 History and physical note Author Hayden Diaz [facility] October 31, 2022 3:59am Note Date/Time October 30, 2022 9:19pm [facility] Medical Records Department [address] [place] [address] H&P Exam - Hospitalist 10/30/222115 MR#: [id number] Acct: [id number] Name: KATHERINE JUDGE Rep #:[id number] : 1935 87 From: Hayden malik DO PCP: Dr. Kam Ocampo Sr., DO Status:A DM IN Location: ICU CVICU20 3-1 HPI - General General Date of Admission: 10/30/22 Date of Service: 10/30/22 Chief Complaint: Acute CVA HPI Narrative KATHERINE JUDGE, is a 87 F with history of chronic debility, TIA, CAD, hypertension and depression who presented to [facility] ED from detention on 10/30/2022 as a stroke alert. Patient seen at bedside, multiple family members present. Patient lying comfortably in bed and alert. Had difficulty speaking, but was able to speak 1-2 words at a time which was improved from prior to administration of thrombolytics per family and nursing report. Most of history was obtained from patient's family. They state the patient was recently hospitalized in outside hospital, unclear on reason for hospitalization. She was discharged to the [facility] with plan for long-term placement in the home. Has no history of TIA but has never had stroke like this before. Vitals in ED notable for hypertension with systolic BPs in the 170s and 180s, otherwise normal. Labs notable for hemoglobin 10.1, normal white blood cell count, normal BMP, otherwise unremarkable. UA was unremarkable. CT brain without contrast showed an area of low-attenuation in the left parietal lobe consistent with age-indeterminate ischemia, perhaps acute. CTA head/neck was negative for any acute pathology. [facility] Medical History (Updated 10/30/22 @ 21:30 by Andrews Chou) Age-related physical debility Atherosclerotic heart disease of [place] coronary artery without angina pectoris Calculus of gallbladder and bile duct without cholecystitis without obstruction Constipation, unspecified Depression, unspecified Diaphragmatic hernia without obstruction or gangrene Difficulty in walking, not elsewhere classified Essential hypertension Gout, unspecified Hyperthyroidism Noninfective gastroenteritis and colitis, unspecified Other lack of coordination Other specified disorders of white blood cells Personal history of other diseases of digestive system Home Medications Lactobacillus-Bifidobacterium 30 billion cell capsule,delayed release (Ultimate Harrison Probiotic) 1 cap PO DAILY 10/30/22 [History Last Taken Unknown] acetaminophen 325 mg capsule (Tylenol) 500 mg PO BID 10/30/22 [History Last Taken Unknown] atorvastatin 10 mg tablet 10 mg PO QHS 10/30/22 [History Last Taken Unknown] azelastine 137 mcg (0.1 %) nasal spray aerosol 1 spray intranasal BID 10/30/22 [History Last Taken Unknown] bupropion HCl 150 mg 24 hr tablet, extended release 150 mg PO DAILY 10/30/22 [History Last Taken Unknown] calcium carbonate 500 mg calcium (1,250 mg) chewable tablet (Calcium 500) 500 mgPO DAILY 10/30/22 [History Last Taken Unknown] cetirizine 10 mg capsule (All Day Allergy (cetirizine)) 10 mg PO DAILY 10/30/22 [History Last Taken Unknown] clopidogrel 75 mg tablet 75 mg PO .thu10/30/22 [History Last Taken 10/27/22] dicyclomine 10 mg capsule 10 mg PO Q6H 10/30/22 [History Last Taken Unknown] doxazosin 2 mg tablet (Cardura) 2 mg PO DAILY 10/30/22 [History Last Taken 10/30/22] fluticasone propionate 50 mcg/actuation nasal spray,suspension (24 Hour Allergy Relief) 1 spray intranasal DAILY 10/30/22 [History Last Taken Unknown] food supplemt, lactose-reduced (Ensure oral liquid) 8 ml PO DAILY 10/30/22 [History Last Taken Unknown] furosemide 20 mg tablet (Lasix) 20 mg PO DAILY 10/30/22 [History Last Taken Unknown] gabapentin 600 mg tablet 600 mg PO BID 10/30/22 [History Last Taken Unknown] guaifenesin 100 mg/5 mL oral liquid (Chest Congestion Relief) 200 mg PO Q8 10/30/22 [History Last Taken Unknown] inulin 2 gram chewable tablet (Fiber Gummies) 1 g PO DAILY 10/30/22 [History Last Taken Unknown] isosorbide mononitrate 30 mg tablet,extended release 24 hr 30 mg PO DAILY 10/30/22 [History Last Taken Unknown] metoprolol tartrate 25 mg tablet 25 mg PO BID 10/30/22 [History Last Taken Unknown] mirtazapine 30 mg tablet 30 mg PO QHS 10/30/22 [History Last Taken Unknown] montelukast 10 mg tablet 10 mg PO QHS 10/30/22 [History Last Taken Unknown] multivitamin (Daily Multi-Vitamin tablet) 1 tab PO DAILY 10/30/22 [History Last Taken Unknown] pantoprazole 40 mg tablet,delayed release 40 mg PO DAILY 10/30/22 [History Last Taken Unknown] potassium chloride 20 mEq tablet,extended release (K-Tab) 20 meq PO DAILY 10/30/22 [History Last Taken Unknown] Allergy/AdvReac Type Severity Reaction Status Date / Time cephalexin Allergy NEEDS Verified 10/30/22 20:19 FOLLOW-UP clarithromycin Allergy NEEDS Verified 10/30/22 20:19 FOLLOW-UP clindamycin Allergy NEEDS Verified 10/30/22 20:19 FOLLOW-UP doxazosin Allergy NEEDS Verified 10/30/22 20:19 FOLLOW-UP erythromycin base Allergy NEEDS Verified 10/30/22 20:19 FOLLOW-UP eszopiclone Allergy NEEDS Verified 10/30/22 20:19 FOLLOW-UP Fish Containing Products Allergy NEEDS Verified 10/30/22 20:19 FOLLOW-UP fish derived Allergy NEEDS Verified 10/30/22 20:19 FOLLOW-UP lincomycin Allergy NEEDS Verified 10/30/22 20:19 FOLLOW-UP lorazepam Allergy NEEDS Verified 10/30/22 20:19 FOLLOW-UP NSAIDS (Non-Steroidal Allergy NEEDS Verified 10/30/22 20:19 Anti-Inflamma FOLLOW-UP Penicillins Allergy NEEDS Verified 10/30/22 20:19 FOLLOW-UP rofecoxib Allergy NEEDS Verified 10/30/22 20:19 FOLLOW-UP salicylates Allergy NEEDS Verified 10/30/22 20:19 FOLLOW-UP temazepam Allergy NEEDS Verified 10/30/22 20:19 FOLLOW-UP Tetracyclines Allergy NEEDS Verified 10/30/22 20:19 FOLLOW-UP trazodone Allergy NEEDS Verified 10/30/22 20:19 FOLLOW-UP Surgical History (Updated 10/30/22 @ 21:30 by Andrews Chou) Presence of aortocoronary bypass graft Social History Smoking Status: Never smoker ROS Review of Systems ROS Unobtainable: due to mental condition Vital Signs Vital Signs Vital Signs: 10/30/22 20:36 10/30/22 20:06 10/30/22 20:58 Temperature Temperature Source Pulse Rate 82 Respiratory Rate 18 Blood Pressure 192/74 H 170/76 H Blood Pressure Mean 113 Blood Pressure Source Pulse Ox 98 97 Oxygen Delivery Method Nasal Cannula Nasal Cannula Oxygen Flow Rate (L/min) 4 4 10/30/22 21:11 10/30/22 20:31 Temperature 98.2 F Temperature Source Temporal Pulse Rate 77 78 Respiratory Rate 20 H 18 Blood Pressure 169/66 H 171/70 H Blood Pressure Mean 100 103 Blood Pressure Source Monitor Pulse Ox 95 95 Oxygen Delivery Method Nasal Cannula Nasal Cannula Oxygen Flow Rate (L/min) 4 1 Weight Weight: 45.359 kg Body Mass Index (BMI) 19.5 Physical Exam Const alert Constitutional Narrative: Elderly female, somewhat frail-appearing, laying comfortably in bed, alert, in no acute distress. Only able to speak 1-2 words at a time with notable difficulty with speech. General Appearance: cooperative and comfortable HEENT normocephalic, head/scalp atraumatic, hearing grossly normal bilaterally, nasal mucous membranes and turbinates normal and moist oral mucous membranes Eyes PERRL, EOMs intact bilaterally and conjunctivae normal Neck full ROM, no lymphadenopathy and supple Lymph Lymphatic: no lymphadenopathy noted Chest inspection of chest normal Resp normal respiratory effort, normal air movement, no use of accessory muscles and clear to auscultation bilaterally Cardio regular rate, regular rhythm, no murmurs and peripheral pulses 2+ throughout GI normal to inspection, nondistended, normoactive bowel sounds, soft to palpation,non-tender and non-distended Back/Spine normal ROM Extremity normal to inspection, full ROM and no pedal edema Skin no rashes or lesions noted Neuro Neuro Narrative: Expressive aphasia and dysarthria noted. Strength 5 out of 5 throughout. Results Lab / Micro Data 10/30/22 20:20 10/30/22 20:20 Labs: Laboratory Results - last 24 hr 10/30/22 20:20: WBC 5.8, RBC 3.10 L, Hgb 10.1 L, Hct 32.2 L, MCV 103.9 H, MCH 32.6 H, MCHC 31.4 L, RDW Std Deviation 52.5 H, RDW Coeff of Tamera 13.6, Plt Count 195, MPV 9.2, Immature Gran % (Auto) 0.300, Neut % (Auto) 55.1, Lymph % (Auto) 33.7, [place] % (Auto) 8.1, Eos % (Auto) 2.1, Baso % (Auto) 0.7, Absolute Neuts (auto) 3.2, Absolute Lymphs (auto) 1.95, Nucleated RBC % 0, PT 13.2, INR 1.0, APTT 27.1, Sodium 136, Potassium 4.3, Chloride 103, Carbon Dioxide 32.0, Anion Gap 1 L, BUN 23 H, Creatinine 0.85, Estim Creat Clear Calc 34.02, Est GFR (MDRD)Af Amer 81, Est GFR (MDRD) Non-Af 67, BUN/Creatinine Ratio 27.0 H, Glucose 107 H, Calcium 8.7, Troponin I High Sens [address] 10/30/22 20:06 IMPRESSION: Area of low-attenuation in the left parietal lobe near the parieto-occipital sulcus is present extending through the cortex which is consistent with with age indeterminate ischemia, perhaps acute. Additional chronic ischemic changes. ASPECTS: 9 or 10. Electronically Signed: Carmelo Eaton DO at 20:24 EDT , ADDENDUM: 10/30/222032 IMPRESSION: Area of low-attenuation in the left parietal lobe near the parieto-occipital sulcus is present extending through the cortex which is consistent with with age indeterminate ischemia, perhaps acute. Additional chronic ischemic changes. ASPECTS: 9 or 10. N.B. : The above Results were Read Back by Carmelo Eaton DO to Amalia Donahue DO, and understanding confirmed on 10/30/2022 20:26:46 (ET). Electronically Signed: Carmelo Eaton DO at 20:24 EDT , Head/Neck CTA 10/30/22 20:07 IMPRESSION: 1. No evidence of intracranial arterial stenosis or occlusion. 2. Moderate atherosclerosis of the left carotid bifurcation and carotid bulb with approximately 50% stenosis of the left internal carotid artery by NASCET criteria. 3. Mild atheroma of the right carotid bifurcation and carotid bulb resulting in less than 50% stenosis of the right internal carotid artery by NASCET criteria. 4. Degenerative changes in the cervical spine with at least moderate multilevel spinal canal and neural foraminal stenosis. Electronically Signed: Carmelo Eaton DO at 20:41 EDT , ADDENDUM: 10/30/222047 IMPRESSION: 1. No evidence of intracranial arterial stenosis or occlusion. 2. Moderate atherosclerosis of the left carotid bifurcation and carotid bulb with approximately 50% stenosis of the left internal carotid artery by NASCET criteria. 3. Mild atheroma of the right carotid bifurcation and carotid bulb resulting in less than 50% stenosis of the right internal carotid artery by NASCET criteria. 4. Degenerative changes in the cervical spine with at least moderate multilevel spinal canal and neural foraminal stenosis. N.B. : The above Results were Read Back by Carmelo Eaton DO to Amalia Donahue MD, and understanding confirmed on 10/30/2022 20:42:16 (ET). Electronically Signed: Carmelo Eaton DO at 20:41 EDT , Assessment & Plan Assessment/Plan (1) Acute CVA (cerebrovascular accident): PLAN: Plan Patient is an 87-year-old female with history of chronic debility, TIA, CAD, hypertension and depression who presented to [facility] ED from detention on 10/30/2022 as a stroke alert. 1. Acute CVA Presenting symptoms of difficulty with speech and confusion. Known history of TIA and CAD. Was previously on both aspirin and Plavix, however Plavix was recently discontinued for unclear reason. Last known well was approximately 6:40 PM, within 4 hours of evaluation in the emergency department. CT brain without contrast showed an area of low-attenuation in the left parietal lobe consistent with age- indeterminate ischemia, perhaps acute. CTA head/neck was negative for any acute pathology. Evaluated by [facility] teleneurology in ED, NIH score of 6. Decision was made to give thrombolytics to patient, and they were given at approximately 9 PM. On my interview at around 9:30 PM, patient and family reported that she had some improvement in her speech. ? Admit to ICU. Mold Repairer consulted. Patient will require close monitoring over the next 24 hours as she was given thrombolytics for an acute CVA. Tenecteplase order set ordered. CT head scans without contrast ordered for 6 hours and 24 hours post thrombolytics. Hold on aspirin and Plavix for now, can restart after [address] head scans are negative for intracranial hemorrhage. Per teleneurology, following recommended orders placed: Echo, A1c, lipid profile, PT/OT/case management consult, speech therapy consult. MRI brainwithout contrast ordered for morning of 11/01. Continue home statin. 2. Chronic debility Patient's family notes that she was recently hospitalized at an outside hospitalfor medical concerns unrelated to current concern for acute CVA. She was discharged to a half-way facility, with plans for long-term placement in a detention after that. Has been residing at the [facility], and family has been happy with this arrangement. ? PT/OT/case management consulted. Fall precautions in place. Chronic medical conditions: ? Hypertension, history of CAD: Continue home metoprolol, isosorbide mononitrate, Lasix, potassium supplement, doxazosin. ? Depression: Continue home bupropion, mirtazapine at night. DVT prophylaxis: SCDs CODE STATUS: DNR CCA, DO NOT INTUBATE Expected disposition: Long-term care facility, TBD Total clinical time spent by myself addressing the patient's medical issues, reviewing all the data, and collaborating with patient's care team: 55 minutes. Charges/Coding Visit Charges Inpatient E&M: 71280 Init Hosp L2 10/31/22 0359 <Electronically signed by Hayden Diaz DO> Cosigner Signature (if applicable): CC: Dr. Hayden Diaz, DO; Dr. Kam Ocampo Sr., DO~ Signed [facility] Work Phone: 1(604) 593-695509-22-2023 Discharge summary Author Amalia Donahue [facility] October 31, 2022 12:06am Note Date/Time October 30, 2022 8:12pm [facility] Medical Records Department [address] [place] [address] Emergency Department Summary 10/30/22 MR#: [id number] Acct: [id number] Name: KATHERINE JUDGE Rep #:[id number] : 1935 87 From: Amalia Donahue DO PCP: Dr. Kam Ocampo Sr., Status:A DM IN Location: ICU CVICU20 3-1 HPI History of Present Illness Chief Complaint: Stroke Alert Detail of Chief Complaint: Stroke Informant: patient, family and EMS Narrative Narrative: Patient presents to the emergency department via EMS from detention. Patientwas last seen well about 1840 5 PM. When she was next checked on she had difficulty with speech and seemed to be confused. Patient has history of prior TIA and history of coronary artery disease as well as hypertension. Patient recently was taken off her Plavix. Patient denies any chest pain. She denies headache. She has not had any falls or injuries. [facility] Medical History (Updated 10/30/22 @ 21:30 by Andrews Chou) Age-related physical debility Atherosclerotic heart disease of [place] coronary artery without angina pectoris Calculus of gallbladder and bile duct without cholecystitis without obstruction Constipation, unspecified Depression, unspecified Diaphragmatic hernia without obstruction or gangrene Difficulty in walking, not elsewhere classified Essential hypertension Gout, unspecified Hyperthyroidism Noninfective gastroenteritis and colitis, unspecified Other lack of coordination Other specified disorders of white blood cells Personal history of other diseases of digestive system Home Medications Lactobacillus-Bifidobacterium 30 billion cell capsule,delayed release (Ultimate Harrison Probiotic) 1 cap PO DAILY 10/30/22 [History Last Taken Unknown] acetaminophen 325 mg capsule (Tylenol) 500 mg PO BID 10/30/22 [History Last Taken Unknown] atorvastatin 10 mg tablet 10 mg PO QHS 10/30/22 [History Last Taken Unknown] azelastine 137 mcg (0.1 %) nasal spray aerosol 1 spray intranasal BID 10/30/22 [History Last Taken Unknown] bupropion HCl 150 mg 24 hr tablet, extended release 150 mg PO DAILY 10/30/22 [History Last Taken Unknown] calcium carbonate 500 mg calcium (1,250 mg) chewable tablet (Calcium 500) 500 mgPO DAILY 10/30/22 [History Last Taken Unknown] cetirizine 10 mg capsule (All Day Allergy (cetirizine)) 10 mg PO DAILY 10/30/22 [History Last Taken Unknown] clopidogrel 75 mg tablet 75 mg PO .thu10/30/22 [History Last Taken 10/27/22] dicyclomine 10 mg capsule 10 mg PO Q6H 10/30/22 [History Last Taken Unknown] doxazosin 2 mg tablet (Cardura) 2 mg PO DAILY 10/30/22 [History Last Taken 10/30/22] fluticasone propionate 50 mcg/actuation nasal spray,suspension (24 Hour Allergy Relief) 1 spray intranasal DAILY 10/30/22 [History Last Taken Unknown] food supplemt, lactose-reduced (Ensure oral liquid) 8 ml PO DAILY 10/30/22 [History Last Taken Unknown] furosemide 20 mg tablet (Lasix) 20 mg PO DAILY 10/30/22 [History Last Taken Unknown] gabapentin 600 mg tablet 600 mg PO BID 10/30/22 [History Last Taken Unknown] guaifenesin 100 mg/5 mL oral liquid (Chest Congestion Relief) 200 mg PO Q8 10/30/22 [History Last Taken Unknown] inulin 2 gram chewable tablet (Fiber Gummies) 1 g PO DAILY 10/30/22 [History Last Taken Unknown] isosorbide mononitrate 30 mg tablet,extended release 24 hr 30 mg PO DAILY 10/30/22 [History Last Taken Unknown] metoprolol tartrate 25 mg tablet 25 mg PO BID 10/30/22 [History Last Taken Unknown] mirtazapine 30 mg tablet 30 mg PO QHS 10/30/22 [History Last Taken Unknown] montelukast 10 mg tablet 10 mg PO QHS 10/30/22 [History Last Taken Unknown] multivitamin (Daily Multi-Vitamin tablet) 1 tab PO DAILY 10/30/22 [History Last Taken Unknown] pantoprazole 40 mg tablet,delayed release 40 mg PO DAILY 10/30/22 [History Last Taken Unknown] potassium chloride 20 mEq tablet,extended release (K-Tab) 20 meq PO DAILY 10/30/22 [History Last Taken Unknown] Allergy/AdvReac Type Severity Reaction Status Date / Time cephalexin Allergy NEEDS Verified 10/30/22 20:19 FOLLOW-UP clarithromycin Allergy NEEDS Verified 10/30/22 20:19 FOLLOW-UP clindamycin Allergy NEEDS Verified 10/30/22 20:19 FOLLOW-UP doxazosin Allergy NEEDS Verified 10/30/22 20:19 FOLLOW-UP erythromycin base Allergy NEEDS Verified 10/30/22 20:19 FOLLOW-UP eszopiclone Allergy NEEDS Verified 10/30/22 20:19 FOLLOW-UP Fish Containing Products Allergy NEEDS Verified 10/30/22 20:19 FOLLOW-UP fish derived Allergy NEEDS Verified 10/30/22 20:19 FOLLOW-UP lincomycin Allergy NEEDS Verified 10/30/22 20:19 FOLLOW-UP lorazepam Allergy NEEDS Verified 10/30/22 20:19 FOLLOW-UP NSAIDS (Non-Steroidal Allergy NEEDS Verified 10/30/22 20:19 Anti-Inflamma FOLLOW-UP Penicillins Allergy NEEDS Verified 10/30/22 20:19 FOLLOW-UP rofecoxib Allergy NEEDS Verified 10/30/22 20:19 FOLLOW-UP salicylates Allergy NEEDS Verified 10/30/22 20:19 FOLLOW-UP temazepam Allergy NEEDS Verified 10/30/22 20:19 FOLLOW-UP Tetracyclines Allergy NEEDS Verified 10/30/22 20:19 FOLLOW-UP trazodone Allergy NEEDS Verified 10/30/22 20:19 FOLLOW-UP Surgical History (Updated 10/30/22 @ 21:30 by Andrews Chou) Presence of aortocoronary bypass graft Social History Smoking Status: Never smoker ROS ROS ED Review of Systems ROS Unobtainable: other Constitutional Constitutional ED: Reports lethargy; Denies chills, fever(s), sweats or weight loss Eyes Eyes: Denies blurry vision, change in vision or diplopia ENT ENT ED: Denies rhinorrhea or sore throat Cardiovascular Cardiovascular: Denies chest pain, orthopnea or racing heartbeat Respiratory/Chest Respiratory/Chest: Denies cough, dyspnea, dyspnea on exertion, orthopnea or sputum Gastrointestinal Gastrointestinal: Denies abdominal pain, diarrhea, nausea or vomiting Genitourinary Genitourinary ED: Denies dysuria, hematuria or urinary frequency Musculoskeletal Musculoskeletal: Denies arthralgias, back pain, myalgias or neck pain Integumentary Denies abscess, Abrasions or rash Neurologic Neurologic: Reports other Details: Expressive aphasia ; Denies headache(s) or weakness Psychiatric Psychiatric: Denies anxiety, depression or suicidal thoughts Endocrine Endocrinology: Denies polydipsia, polyphagia or polyuria Hematologic/Lymphatic Hematologic/Lymphatic: Denies easy bleeding, easy bruising or lymphadenopathy Allergic/Immunologic Allergic/Immunologic ED: Denies mouth swelling, tongue swelling or urticaria EXAM Physical Exam Const Vital Signs: 10/30/22 20:36 10/30/22 20:06 10/30/22 20:58 Temperature Temperature Source Pulse Rate 82 Respiratory Rate 18 Blood Pressure 192/74 H 170/76 H Blood Pressure Mean 113 Blood Pressure Source Pulse Ox 98 97 Oxygen Delivery Method Nasal Cannula Nasal Cannula Oxygen Flow Rate (L/min) 4 4 10/30/22 21:11 10/30/22 20:31 10/30/22 21:14 Temperature 98.2 F Temperature Source Temporal Pulse Rate 77 78 77 Respiratory Rate 20 H 18 20 H Blood Pressure 169/66 H 171/70 H 171/70 H Blood Pressure Mean 100 103 103 Blood Pressure Source Monitor Monitor Pulse Ox 95 95 96 Oxygen Delivery Method Nasal Cannula Nasal Cannula Nasal Cannula Oxygen Flow Rate (L/min) 4 1 2 Positive well nourished and well developed General Appearance ED: well developed and NAD HEENT Reports TM's clear and moist mucous membranes normocephalic and atraumatic; Negative for trauma or tenderness Tympanic Membrane ED: Yes TM's clear Eyes PERRL and EOMs intact bilaterally General Eye ED: Negative for pale conjunctiva or scleral icterus Neck no lymphadenopathy, supple and no JVD General: Negative for tenderness Chest Wall inspection of chest normal and palpation of chest normal Chest: Negative for tenderness Resp normal respiratory effort and clear to auscultation bilaterally Effort and Inspection: Negative for respiratory distress or pain with movement Auscultation: Negative for rhonchi, wheezes or diminished lung sounds Cardio regular rate, regular rhythm, S1 normal heart sound, S2 normal heart sound and no murmurs Peripheral Pulses: pulses 2+ throughout GI normal to inspection, nondistended, normoactive bowel sounds, soft to palpation,non-tender, non-distended and no masses Back/Spine no CVA tenderness and no thoracic nor lumbar tenderness Extremity normal to inspection General Extremety ED: Negative for edema General Extremity: Negative for edema Neuro oriented x3, CN's II-XII intact bilaterally, no sensory deficits noted and gait normal Neuro Narrative: NIH stroke scale is a 4. No focal weakness noted. Patient does have expressiveaphasia and dysarthria Sensorium / Orientation: awake, alert, oriented to person, oriented to place andoriented to time Motor Exam: strength 5/5 throughout and strength abnormal Psych mental status grossly normal Skin no rashes or lesions noted and no wounds MDM MDM MDM Narrative Medical decision making narrative: Patient presents via EMS, patient has no unwell at 1820 per detention staff as I called personally to discuss with nursing staff. Patient falls in the window for thrombolysis. Patient has significant expressive aphasia. Stroke team was called from the field by EMS. My initial evaluation cursory before CT imaging revealed a NIH stroke scale of 4 due to dysarthria and expressive aphasia. CT scan of the brain without contrast was read by radiology as no evidence of intracranial hemorrhage. There were some suspicion of left posterior parietal area of low-attenuation which could represent old or new ischemia. CTA showed no evidence of LVO. CBC with differential and chemistriesunremarkable. I discussed case with patient's son who is power of mercury purifier and also with patient and they are agreeable to proceeding with TNKase. They understand the risk of hemorrhage. Case will be discussed with hospitalist to evaluate patient for admission. Patient was hypertensive and had to be treated with labetalol. Lab Data Attestation: I reviewed the patient's lab results. Labs: Laboratory Results - last 24 hr 10/30/22 20:20 WBC 5.8 RBC 3.10 L Hgb 10.1 L Hct 32.2 L MCV 103.9 H MCH 32.6 H MCHC 31.4 L RDW Std Deviation 52.5 H RDW Coeff of Tamera 13.6 Plt Count 195 MPV 9.2 Immature Gran % (Auto) 0.300 Neut % (Auto) 55.1 Lymph % (Auto) 33.7 [place] % (Auto) 8.1 Eos % (Auto) 2.1 Baso % (Auto) 0.7 Absolute Neuts (auto) 3.2 Absolute Lymphs (auto) 1.95 Nucleated RBC % 0 PT 13.2 INR 1.0 APTT 27.1 Sodium 136 Potassium 4.3 Chloride 103 Carbon Dioxide 32.0 Anion Gap 1 L BUN 23 H Creatinine 0.85 Estim Creat Clear Calc 34.02 Est GFR (MDRD) Af Amer 81 Est GFR (MDRD) Non-Af 67 BUN/Creatinine Ratio 27.0 H Glucose 107 H Calcium 8.7 Troponin I High Sens 5 Radiography Diagnostic Testing: Clinical Impression(s) from Imaging Studies Brain CT 10/30/22 20:06 IMPRESSION: Area of low-attenuation in the left parietal lobe near the parieto-occipital sulcus is present extending through the cortex which is consistent with with age indeterminate ischemia, perhaps acute. Additional chronic ischemic changes. ASPECTS: 9 or 10. Electronically Signed: Carmelo Eaton DO at 20:24 EDT , ADDENDUM: 10/30/222032 IMPRESSION: Area of low-attenuation in the left parietal lobe near the parieto-occipital sulcus is present extending through the cortex which is consistent with with age indeterminate ischemia, perhaps acute. Additional chronic ischemic changes. ASPECTS: 9 or 10. N.B. : The above Results were Read Back by Carmelo Eaton DO to Amalia Donahue DO, and understanding confirmed on 10/30/2022 20:26:46 (ET). Electronically Signed: Carmelo Eaton DO at 20:24 EDT , Head/Neck CTA 10/30/22 20:07 IMPRESSION: 1. No evidence of intracranial arterial stenosis or occlusion. 2. Moderate atherosclerosis of the left carotid bifurcation and carotid bulb with approximately 50% stenosis of the left internal carotid artery by NASCET criteria. 3. Mild atheroma of the right carotid bifurcation and carotid bulb resulting in less than 50% stenosis of the right internal carotid artery by NASCET criteria. 4. Degenerative changes in the cervical spine with at least moderate multilevel spinal canal and neural foraminal stenosis. Electronically Signed: Carmelo Eaton DO at 20:41 EDT , ADDENDUM: 10/30/222047 IMPRESSION: 1. No evidence of intracranial arterial stenosis or occlusion. 2. Moderate atherosclerosis of the left carotid bifurcation and carotid bulb with approximately 50% stenosis of the left internal carotid artery by NASCET criteria. 3. Mild atheroma of the right carotid bifurcation and carotid bulb resulting in less than 50% stenosis of the right internal carotid artery by NASCET criteria. 4. Degenerative changes in the cervical spine with at least moderate multilevel spinal canal and neural foraminal stenosis. N.B. : The above Results were Read Back by Carmelo Eaton DO to Amalia Donahue MD, and understanding confirmed on 10/30/2022 20:42:16 (ET). Electronically Signed: Carmelo Eaton DO at 20:41 EDT , EKG Initial EKG: Attestation: I personally reviewed and interpreted this EKG as follows: Comments: Sinus rhythm with a right bundle branch block with rate of [address] changes Critical Care Time Critical care time (excluding procedures): 30-74 minutes, Including time spent:,Discussing w/Patient &/or Family/Studio Receptionist, Discussing w/Consultants, ArrangingAdmission or Transfer, Performing Direct Patient Care at Bedside and - (30 minutes) Discharge Plan Dx/Rx/DC Orders Clinical Impression: Acute CVA (cerebrovascular accident), History of CAD (coronary artery disease),Hypertension Disposition Disposition: Acute Care [facility] Discharge Date/Time: 10/30/22 22:27 What to do if you have Problems For any increased pain, shortness of breath, bleeding, nausea or vomiting, chestpain, or any unexpected problems, contact your Primary Care Provider. Call [facility] ([phone]) or report to the closest Emergency Room. Call 911 if necessary. 10/31/22 0006 <Electronically signed by Amalia Donahue DO> Cosigner Signature (if applicable): CC: Dr. Kam Ocampo Sr., ~ Signed [facility] Work Phone: [phone] 605-795409-07-2023 History of Present illness Narrative* Sophia Moreira RN - 10/16/2022 1:32 PM EDT Report called to [facility]. Nurse was informed of the superintendent water and sewer systems time of 1400. * Eder Monterroso MD - 10/15/2022 4:14 PM EDT Images from the original note were not included. Hospitalist Progress Note 10/15/[phone]: Please secure chat me for patient care issues. [phone]: Please secure chat [facility] Hospitalist for any issues. Subjective: Admit Date: 10/10/2022 PCP: Saida Gardiner Room#: B2-259/B2-259 A Interval History: Patient is lying on the bed, abdominal pain continues to improve. Denies any nausea or vomiting. Tolerating p.o. diet well. Diarrhea also improved. No other significant overnight issues. Adult diet Regular; Low Fiber @[id number]@ 24HR INTAKE/OUTPUT: Intake/Output Summary (Last 24 hours) at 10/15/2022 1614 Last data filed at 10/15/2022 1145 Gross per 24 hour Intake 500 ml Output 275 ml Net 225 ml Past Medical History: Past Medical History: Diagnosis Date CAD (coronary artery disease) Hypothyroidism Ischemic colitis (HCC) LABS: CBC: Recent Labs 10/13/22 0308 10/14/22 0144 10/15/22 0435 WBC 7.8 6.3 7.1 RBC 2.88* 3.05* 3.18* HGB 9.8* 10.4* 10.8* HCT 29.3* 31.0* 32.4* MCV 101.4* 101.5* 101.6* RDW 13.8 13.4 13.6 PLT 201 213 223 BMP: Recent Labs 10/13/22 0308 10/14/22 0144 10/15/22 0435 NA 138 139 140 K 4.5 4.2 [...] Wt 105 lb 8 oz (47.9 kg) SdR418% BMI 20.60 kg/m Pulse Ox: SpO2 Av.5 [...] ordered. PT OT evaluated the patient recommended half-way facility. -am labs, replace lytes prn -increase activity -DVT prophylaxis: [] Lovenox [] Heparin [] SCDs [x] Encourage ambulation [] Already on Anticoagulation Anticipated Discharge - Date - tomorrow - Location -half-way facility - Pending the following -clinical improvement/placement Total time spent (which include face to face and non face to face encounters) : 25 minutes Toxic drug monitoring/narrow therapeutic index drug monitoring : # Drug name : # Route administered : # Method of monitoring : Extended Emergency Contact Information Primary Emergency Contact: Ganga Judge Mobile Relation: Son Preferred language: Kazakh Superintendent Electric Power needed? No Eder Monterroso MD Division of Hospitalist Medicine Acute care [facility] PAGER: Epic chat * Brittni Javed, ELENITA - 10/15/2022 2:49 PM EDT Nutrition Assessment Type and Reason for Visit: [...] assess Fluid Accumulation: No significant fluid accumulation Nut Tightener Strength: Not Performed Nutrition Assessment: Pt is very pleasant, appeared in no distress this afternoon with visitor at bedside. Pt's diet was advanced to solids today- GI [place], low fiber. Pt reported that she ordered a smaller meal and has tolerated so far without significant ab pain or discomfort. Pt stated that she tries to drink Ensure,but TID may be too frequent. Pt stated that she sometimes has a hard time finishing a whole one. Ptwas willing to switch to Ensure compact and Magic cup each once daily. Pt is hoping that she can discharge tomorrow. Estimated Daily Nutrient Needs: Energy Requirements Based On: Kcal/kg Weight Used for Energy Requirements: Admission Weight for Energy Calculation (kg): 49.4 kg Total Energy Requirements (kcals/day): 4679-9669 (30-35 kcal/kg CBW) Weight Used for Protein [...] 110# UBW) % Weight Change (Calculated): -4.5 [place] Body Weight (lbs) (Calculated): 100 lbs [place] Body Weight (Kg) (Calculated): 45 kg % [place] Body Weight (Calculated): 105 % BMI (kg/m2) [...] Oral Nutrition Supplement Brittni Javed RD Contact: *[phone] or via Secure Chat * Hayden Steen MD - 10/15/2022 11:09 AM EDT Images from the original note were not [...] Wt 47.9 kg (105 lb 8 oz) FeJ521% BMI 20.60 kg/m TEMPERATURE: Current - Temp: [...] based on abdominal discomfort and tolerating diet * Eder Monterroso MD - 10/14/2022 1:42 PM EDT Images from the original note were not included. Hospitalist Progress Note 10/14/[id number]: Please secure chat me for patient care issues. [phone]: Please secure chat [facility] Hospitalist for any issues. Subjective: Admit Date: 10/10/2022 PCP: Saida Gardiner Room#: B2-259/B2-259 A Interval History: Patient is lying on the bed, abdominal pain is better. Complaining of multiple episodes of diarrhea. Denies any nausea or vomiting. No other significant overnight issues. Adult diet Full liquid @[id number]@ 24HR INTAKE/OUTPUT: No intake or output data in the 24 hours ending 10/14/22 1342 Past Medical History: Past Medical History: Diagnosis Date CAD (coronary artery disease) Hypothyroidism Ischemic colitis (HCC) LABS: CBC: Recent Labs 10/12/2263210/13/22 0308 10/14/22 0144 WBC 12.3* 7.8 6.3 [...] ordered. PT OT evaluated the patient recommended half-way facility. -am labs, replace lytes prn -increase activity -DVT prophylaxis: [] Lovenox [] Heparin [] SCDs [x] Encourage ambulation [] Already on Anticoagulation Anticipated Discharge - Date -1 to 2 days - Location -half-way facility - Pending the following -clinical improvement/placement Total time spent (which include face to face and non face to face encounters) : 25 minutes Toxic drug monitoring/narrow therapeutic index drug monitoring : # Drug name : # Route administered : # Method of monitoring : Extended Emergency Contact Information Primary Emergency Contact: Ganga Judge Mobile Relation: Son Preferred language: Kazakh Superintendent Electric Power needed? No Eder Monterroso MD Division of Hospitalist Medicine [facility] PAGER: Epic chat * Laura Brown OT - 10/14/2022 11:34 AM EDT Occupational Therapy Facility/Department: [facility] 2E Occupational Therapy Initial Evaluation NAME: Katherine Judge : 1935 Date of Service: 10/14/2022 Discharge Recommendations: Group Home Facility OT Equipment Recommendations Equipment Needed: No [...] SBA-mod A with ADLs and min A forshort distance ambulation. Pt is limited by balance, weakness, and fatigue and is functioning belowbaseline. Pt would benefit from skilled OT services [...] Additional Comments: Pt reports she has been "carrying around" SPC since fall, but reports independent with [...] assistance Functional Mobility Comments: Pt ambualting with BELT LOOP CUTTER and min A for balance short distance to/from [facility]. No true LOB noted however pt demo [...] ADLs, and min A with toileting at [facility] d/t fatigue level. [facility] [place] [place] [facility] [place] for threading BLE d/t [...] Daily Activity Raw Score: 17 ADL Inpatient [facility] G-Code Modifier: CK Goals Encounter Problems Encounter [...] service department occupational therapist. Laura Brown OT * Ron Vines DO - 10/13/2022 2:25 PM EDT Images from the original note were not [...] last 7 days Lab Units 10/13/22 0308 10/12/2263210/11/22 033 WBC AUTO 10*3/uL 7.8 12.3* 15.1* HEMOGLOBIN [...] are any questions or concerns please feel freeto contact the dictating provider for clarification.) Electronically signed by Ron Vines DO 10/13/2022 2:25 PM * Ranjeet Tobar, - 10/13/2022 12:48 PM EDT Images from the original note were not included. Hospitalist Progress Note 10/13/[id number]: Please page pr ([phone]) for patient care issues. [phone]: Please page [facility] Hospitalist for any issues. Subjective: Admit Date: 10/10/2022 PCP: Saida Gardiner Room#: B2-259/B2-259 A Interval History: No overnight issues. Denies chest pain,, nausea, vomiting, diarrhea, , fevers, orchills. Constipation and abdominal pain persists, patient with [...] 195 205 201 BMP: Recent Labs 10/11/22 03310/12/22 0633 10/13/22 0308 NA 140 141 138 [...] pending. Sputum culture pending. Continue broad coverage abx.Discussed with GI, abnormal CT findings likely 2/2 constipation. Proctocolitis ruled out by GI. Bowel regimen started, continue with IVF. 10/12/22: will continue IVF 1 more day, likely discontinue tomorrow. Abdomen pain improving but stillpresent. She has had several good bowel movements [...] Ganga Judge Mobile Relation: Son Preferred language: Kazakh Superintendent Electric Power needed? No Ranjeet Tobar DO Division of Hospitalist Medicine Inpatient Medical Services/[facility] PAGER: Epic chat * Santa Del Rosario, PT - 10/12/2022 2:48 PM EDT Physical Therapy Facility/Department: [address] Physical Therapy Initial Evaluation NAME: Katherine Judge : 1935 Date of Service: 10/12/2022 Discharge Recommendations: Group Home Facility, Continue to assess pending progress PT Equipment Recommendations Equipment Needed: (TBD as pt progresses) Assessment Requires PT Follow-Up: Yes Assessment: Pt is an 87 y.o. female admitted 10/10 with worsening abdominal pain. Found to have constipation. Pt was previously independent with functional mobility without AD, pt reports she has been "carrying around" SPC but does not use. Pt is currently requiring SBA to mod A for bed mobility, Wallace to CGA for functional transfers and min A for x1 forward/retro step with FWW. Pt lethargic throughout session but improves with mobility, RN reports medicated for pain prior to session. Pt is currently limited by fatigue and is at an increased risk for falls. Pt will benefit from acute skilled PTto address current deficits. Recommend SNF pending progress. [...] as indicated impacting pt's current clinical presentation. Ptis currently requiring SBA to mod A for [...] name. Increased arousal with mobility. Pt states "Iwant to get up" Patient Stated Goal: To go home Pain [...] of session. Pt reports she has been "carrying around" SPC since fall, but reports independent with [...] Call light within reach, Gait belt, Patient atrisk for falls, Left in bed, Nurse notified, [...] 1421 Minutes 24 Santa Del Rosario PT * Ranjeet Tobar, DO - 10/12/2022 12:09 PM EDT Images from the original note were not included. Hospitalist Progress Note 10/12/2022 [phone]: Please page me ([phone]) for patient care issues. [phone]: Please page [facility] Hospitalist for any issues. Subjective: Admit Date: 10/10/2022 PCP: Saida Gardiner Room#: B2-259/B2-259 A Interval History: No overnight issues. Denies chest pain,, nausea, vomiting, diarrhea, , fevers, orchills. Constipation and abdominal pain improved, patient with [...] CAD (coronary artery disease) Hypothyroidism Ischemic colitis ([facility]) LABS: CBC: Recent Labs 10/10/22 1454 10/11/22 03310/12/22 0633 WBC 16.9* 15.1* 12.3* RBC 3.65* [...] Position: Lying) Pulse 74 Temp 36.8 C (98.2F) (Temporal) Resp 18 Ht 5' (1.524 m) [...] pending. Sputum culture pending. Continue broad coverage abx.Discussed with GI, abnormal CT findings likely 2/2 constipation. Proctocolitis ruled out by GI. Bowel regimen started, continue with IVF. 10/12/22: will continue IVF 1 more day, likely discontinue tomorrow. Abdomen pain improving but stillpresent. She has had several good bowel movements [...] Ganga Judge Mobile Relation: Son Preferred language: Kazakh Superintendent Electric Power needed? No Ranjeet Tobar DO Division of Hospitalist Medicine Inpatient Medical Services/[facility] PAGER: Epic chat * Kiana Wagner RD - 10/12/2022 11:34 AM EDT Nutrition Assessment Type and Reason for Visit: [...] assess Fluid Accumulation: No significant fluid accumulation Nut Tightener Strength: Not Performed Nutrition Assessment: 87 year old woman with PMHx: CAD, colitis, hypothyroidism. Presented to [facility] with worsening abdominal pain (achy and crampy). Reports decreased bowel movements and history of bowel obstructions. Significant labs on admit: WBC(16.9), BUN(22). Imaging showed stool burden in the distal colon near the rectosigmoid junction with some associated rectosigmoid wall thickening. +bm 10/10/22. GI consulted andrecommended serial KUBs, liquid diet with ADAT, and aggressive bowel regimen. Continues on IVF and liquid diet this morning. Pending PNA r/o, awaiting sputum cultures. Patient resting in bed at time of assessment, bed scale weight obtained: 80.7 kg- which is in no way accurate. Patient reports poorPO intake for the past few days, diet [...] at this time, as patient reports she issore from MD examinations this morning Estimated Daily Nutrient Needs: Energy Requirements Based On: Kcal/kg Weight Used for Energy Requirements: Admission Weight for Energy Calculation (kg): 49.4 kg Total Energy Requirements (kcals/day): 9203-5480 (30-35 kcal/kg CBW) Weight Used for Protein Requirements: Admission Weight in Kg Used for Protein Requirements: 49.4 kg Estimated Total Protein (g/day): 49-74 (1.0-1.5 g protein/kg CBW) Estimated Daily Total Fluid (ml/day): per MD or ~1605 mL/day Nutrition Related Findings: No skin break down or edema noted. Moustapha score=18. +I/O balance. Meds and labs reviewed. NPO/CL x3days Wound Type: None Current Nutrition Therapies: Adult [...] 110# UBW) % Weight Change (Calculated): -4.5 [place] Body Weight (lbs) (Calculated): 100 lbs [place] Body Weight (Kg) (Calculated): 45 kg % [place] Body Weight (Calculated): 105 % BMI (kg/m2) [...] to determine Kiana Wagner RDN, LDN, Contact: *[phone] * Ron Vines DO - 10/12/2022 10:20 AM EDT Images from the original note were not included. GASTROENTEROLOGY PROGRESS NOTE Patient: Katherine Judge : 1935 Primary Care Physician: Saida Gardiner History: Liquid BMs yesterday. Abdominal pain improving. Tolerating liquid diet without difficulty.Denies any N/V Physical Exam: Gen: AAOx3 in [...] 7 days Lab Units 10/12/22 0633 10/11/22 03310/10/22 1454 WBC AUTO 10*3/uL 12.3* 15.1* 16.9* HEMOGLOBIN g/dL 10.1* 11.8 12.6 HEMATOCRIT % 30.0* 36.6 37.3 PLATELETS AUTO 10*3/uL 205 195 217 CMP: Recent Labs 10/11/22 0331 10/12/22 0633 NA 140 141 K 4.0 4.4 CL 107 110* CO2 28 25 BUN 17 21* CREATININE 0.72 0.97 GLUCOSE 86 107* CALCIUM 8.2* 7.9* HEPATIC: Results from last 7 days Lab Units 10/11/22 03310/10/22 1454 ALK PHOS U/L 85 88 BILIRUBIN [...] symptoms and patient is agreeable. Patient is onPlavix. (Comment: Please note this report has been produced using speech recognition software and may contain errors related to that system including errors in grammar, punctuation, and spelling, as well as words and phrases that may be inappropriate. If there are any questions or concerns please feel freeto contact the dictating provider for clarification.) Electronically signed by Ron Vines DO 10/12/2022 10:20 AM * Sylvain Mirza, [facility] - 10/12/2022 8:06 AM EDT Pharmacy Vancomycin Consult Follow-Up Note Non-QUILL LAYER Patients Current Dosinmg q24h CREATININE Date Value [...] and check random level with am labs. * Ranjeet Packsmooth, - 10/11/2022 12:22 PM EDT Images from the original note were not included. Hospitalist Progress Note 10/11/20226999596-8664: Please page pr ([phone]) for patient care issues. [phone]: Please page [facility] night Hospitalist for any issues. Subjective: Admit [...] pending. Sputum culture pending. Continue broad coverage abx.Discussed with GI, abnormal CT findings likely 2/2 [...] Contact: NuGanga Mobile Relation: Son Preferred language: Kazakh Superintendent Electric Power needed? No Ranjeet Tobar DO Division of Hospitalist Medicine Inpatient Medical Services/[facility] PAGER: Epic chat * Andreia Hay RN - 10/11/2022 9:18 AM EDT Attempted two IV starts, call QUI[facility] to place for antibiotics. ] * Sylvain Mirza [facility] - 10/11/2022 7:03 AM EDT Pharmacy Vancomycin Consult Follow-Up Note Non-QUILL [facility] Patients Current Dosinmg x1 -> 750mg q24hr [...] and continue to follow. documented in this [facility]09-07-2023 Hospital Discharge instructions* Discharge Instr - Activity* Sophia Moreira RN - 10/16/2022 1:15 PM EDT As tolerated with assistance * Discharge Instr - Diet* Sophia Moreira RN - 10/16/2022 1:15 PM EDT Regular diet * Discharge Instr - LEEANNE* Sophia Moreira RN - 10/16/2022 8:06 AM EDT Continuity [...] Ganga Judge Mobile Relation: Son Preferred language: Kazakh Superintendent Electric Power needed? No Past Surgical History: Past Surgical History: Procedure Laterality Date OTHER SURGICAL HISTORY she reports "bowel resections" in the past Immunization History: Immunization History [...] assistance Toileting Minimal assistance Feeding Minimal assistance Aircraft Detail Draftsperson Minimal assistance Med Delivery yes Wound Care [...] Score: @READMISSIONRISKDETAILS@ Discharging to Facility/ Agency Name: [facility] Address: [address] [place] [address], [place] [id number] Dialysis Facility (if applicable) Name: Address: Dialysis Schedule: Phone: Fax: Hospital Wellness Coordinator/Wink Cutter Operator signature: ICIAN SECTION Prognosis: good Condition at Discharge: stable Rehab Potential (if transferring to Rehab): good Recommended Labs or Other Treatments After Discharge: continue prn Bowel regime Physician Certification: I certify the above information and transfer of Katherine Judge is necessaryfor the continuing treatment of the diagnosis listed and that she requires half-way facilityfor less than 30 days. Update Admission H&P: No change in H&P PHYSICIAN SIGNATURE: documented in this [facility]09-07-2023 Note* Care Coordination - BRANDON Alvarez - 10/16/2022 11:52 AM EDT Dc to [facility] this afternoon at 2:00. [facility] to transport. Ambulancetransport form completed. Careport messaged [facility] with the dc time.Spoke with patients son to discuss dc arrangements and cotton picker operator time. Report number provided to the bedside nurse. [place] [id number] Miscellaneous Notes* Care Coordination - BRANDON Alvarez - 10/16/2022 11:52 AM EDT Dc to [facility] this afternoon at 2:00. [facility] to transport. Ambulancetransport form completed. Careport messaged [facility] with the dc time.Spoke with patients son to discuss dc arrangements and cotton picker operator time. Report number provided to the bedside nurse. * Care Coordination - Unknown Case Management - 10/16/2022 10:35 AM EDT Patient Choice Patient Name: KATHERINE JUDGE Date of : 1935 All Providers Sent [facility]erral Name[facility] Phone: [phone] Address: [address] [place], [place] [id number] [facility] Phone: [phone] Address: [address] [place], [place] [id number] Name: [facility] Address: [address] [place], [place] [id number] * Care Coordination - Stef Cox - 10/16/2022 8:51 AM EDT Discharge med list transmitted to [facility] via Careport per TCC request. 7000 was entered into [facility] for the SNF- Facility is aware. * Care Coordination - Joy Longo RN - 10/16/2022 8:20 AM EDT Images from the original note were not included. Care Management Progress Note Pt has discharge order. Pt to transfer to [facility]. [facility] notified to complete 7000 & to send discharge paperwork. FUNERAL DIRECTOR/EMBALMER notified to set up transport. [facility] notified of discharge. Discharge Milestones and Delays Expected Date/Time: 10/16/2022 Morning Disposition: Group Home Facility Transport status: No current request Discharge [...] Length of Stay (Days): 6 GMLOS: 2.6 * Care Coordination - Joy Longo RN - 10/15/2022 3:30 PM EDT Spoke with Lesley at [facility] & they can accept pt on 10/16. Notified pt & she asked TCC to follow up with her son. Notified son & he is agreeable.Notified attending, RN & FUNERAL DIRECTOR/EMBALMER via secure chat. * Care Coordination - Stef Cox - 10/15/2022 11:37 AM EDT Referral placed to SNF- [facility] sent to SNF- [facility] via Careport per TCC request. Await review and response regarding ability to accept. TCC notified. * Care Coordination - Joy Longo RN - 10/15/2022 11:35 AM EDT Received call from pt son & they would like referral to [facility]. PATTERN HAND tasked to make referral. * Care Coordination - Joy Lnogo RN - 10/15/2022 10:29 AM EDT Images from the original note were not included. Care Management Progress Note Pt remains on 2E due to abd pain-improving. Constipation-resolved. Follow up CXR for moderate to large pleural effusions. Met with pt to discuss SNF choices. Pt choices are [facility] Notified PATTERN HAND to make referrals. Await response from SNF [...] Length of Stay (Days): 5 GMLOS: 2.6 * Care Coordination - Stef Cox - 10/15/2022 10:26 AM EDT Referral placed to SNF- [facility] via Careport per TCC request. Await review and response regarding ability to accept. TCC notified. * Care Coordination - Remy Whitney RN - 10/14/2022 4:12 PM EDT Care Managment Initial Assessment Date: 10/14/2022 Patient Name: Katherine Judge : 1935 Patient Information Source of Information: Patient Cognition/Language: WFL - Within Functional Limits Permission given to speak with patient sales representative business courses/caregiver as indicated: Yes (Ganga Judge, son, ) Confirmation of Payer with patient/family: Yes Payer Name: Medicare [place]: No (Spouse is a [place]. Made referral to [facility]) Confirmation of [...] Prescription Coverage: Yes Pharmacy Used: [facility] Medication Management: Independent Transportation/Shopping: Independent Transportation Mode: [...] Additional Information: Chart reviewed. Patient admitted to [facility] for treatment of Proctocolitis. Full liquid diet. PT/OT recommends SNF. Met with patient at bedside. Explained role. She is very pleasant. 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 Reports her son is helpful and lives 20 minutes away. Independent with adls. She does not drive. +PCP, +RX cov, +DME. Discussed SNF. Patient interested. But, wants to discuss with son first. Served Medicare Choice listing. No insurance authorization required to admit to SNF. DC plan: TBD Home with Home care vs SNF Tasked RAGINI perez to follow Remy Whitney RN * Care Plan - Andreia Hay RN - 10/11/2022 4:47 PM EDT The patient is Moderately Stable - Low [...] address these barriers include encourage fluids . * Care Plan - July Stroud RN - 10/10/2022 9:57 PM EDT The patient is Moderately Stable - Low [...] continue current care plan. documented in this [facility]09-07-2023 Note* Care Coordination - Unknown Case Management - 10/16/2022 10:35 AM EDT Patient Choice Patient Name: KATHERINE JUDGE Date of : 1935 All Providers Sent [facility]erral [facility] Phone: [phone] Address: [address] [place] [id number] [facility] Phone: [phone] Address: [address] [place], [place] [phone] [facility] Address: [address] [place] [address] [facility] [id number] NoteCare Management Progress Note Pt has discharge order. Pt to transfer to [facility]. [facility] notified to complete 7000 & to send discharge paperwork. FUNERAL DIRECTOR/EMBALMER notified to set up transport. [facility] notified of discharge. Discharge Milestones and Delays Expected Date/Time: 10/16/2022 Morning Disposition: Group Home Facility Transport status: No current request Discharge [...] PM Length of Stay (Days): 6 GMLOS: 2.6[facility]09-07-2023 Note* Care Coordination - Stef Cox - 10/16/2022 8:51 AM EDT Discharge med list transmitted to SNF-[facility] via Careport per TCC request. 7000 was entered into [facility] for the SNF- Facility is aware. [facility] [id number] Note* Care Coordination - Joy Longo RN - 10/16/2022 8:20 AM EDT Images from the original note were not included. Care Management Progress Note Pt has discharge order. Pt to transfer to [facility]. [facility] notified to complete 7000 & to send discharge paperwork. FUNERAL DIRECTOR/EMBALMER notified to set up transport. [facility] notified of discharge. Discharge Milestones and Delays Expected Date/Time: 10/16/2022 Morning Disposition: Group Home Facility Transport status: No current request Discharge [...] Length of Stay (Days): 6 GMLOS: 2.6 [facility] [id number] Hospital course Narrative* Eder Monterroso MD - 10/16/2022 8:14 AM EDT Discharge Summary Katherine Judge : 1935 ADMIT [...] baseline PT OT evaluated the patient recommended half-way facility. Discharged in stable condition CONSULTANTS: GI [...] Your Medications These medications were sent to [facility] [address] [place] [id number] Hours: Thursday to Thursday 10 am to 6 pm polyethylene glycol (PEG) 3350 17 g packet simethicone 80 MG chewable tablet DIET: Adult diet Regular; Low Fiber ACTIVITY: Up with assist COMPLEXITY OF FOLLOW UP: [] Moderate Complexity: follow up within 7-14 calendar days (32829) [] Severe Complexity: follow up within 7 calendar days (77238) FOLLOW UP TESTING, PENDING RESULTS OR REFERRALS [...] MD 10/16/2022, 8:14 AM documented in this [facility]09-06-2023 NoteHospitalist Progress Note 10/15/2022 [phone]: Please secure chat me for patient care issues. [phone]: Please secure chat [facility] Hospitalist for any issues. Subjective: Admit Date: 10/10/2022 PCP: Saida Gardiner Room#: B2-259/B2-259 A Interval History: Patient is lying on the bed, abdominal pain continues to improve. Denies any nausea or vomiting. Tolerating p.o. diet well. Diarrhea also improved. No other significant overnight issues. Adult diet Regular; Low Fiber @[id number]@ 24HR INTAKE/OUTPUT: Intake/Output Summary (Last 24 hours) at 10/15/2022 1614 Last data filed at 10/15/2022 1145 Gross per 24 hour Intake 500 ml Output 275 ml Net 225 ml Past Medical History: Past Medical History: Diagnosis Date CAD (coronary artery disease) Hypothyroidism Ischemic colitis (HCC) LABS: CBC: Recent Labs 10/13/2230710/14/2214310/15/22 0435 WBC 7.8 6.3 7.1 RBC 2.88* 3.05* 3.18* HGB 9.8* 10.4* 10.8* HCT 29.3* 31.0* 32.4* MCV 101.4* 101.5* 101.6* RDW 13.8 13.4 13.6 PLT 201 213 223 BMP: Recent Labs 10/13/2230710/14/22 0144 10/15/22 043 NA 138 139 140 K 4.5 4.2 [...] ordered. PT OT evaluated the patient recommended half-way facility. -am labs, replace lytes prn -increase activity -DVT prophylaxis: [] Lovenox [] Heparin [] SCDs [x] Encourage ambulation [] Already on Anticoagulation Anticipated Discharge - Date - tomorrow - Location -half-way facility - Pending the following -clinical improvement/placement Total time spent (which include face to face and non face to face encounters) : 25 minutes Toxic drug monitoring/narrow therapeutic index drug monitoring : # Drug name : # Route administered : # Method of monitoring : Extended Emergency Contact Information Primary Emergency Contact: Ganga Judge Mobile Relation: Son Preferred language: Kazakh Superintendent Electric Power needed? No Eder Monterroso MD Division of Hospitalist Medicine Acute care [facility] PAGER: [facility]09-06-2023 Note* Care Coordination - Joy Longo RN - 10/15/2022 3:30 PM EDT Spoke with Lesley at [facility] & they can accept pt on 10/16. Notified pt & she asked TCC to follow up with her son. Notified son & he is agreeable.Notified attending, RN & FUNERAL DIRECTOR/EMBALMER via secure chat. [facility] HospitalAghvfq48-06-1966 NoteReferral placed to [facility] sent to [facility] via Careport per TCC request. Await review and response regarding ability to accept. TCC notified. [facility]09-06-2023 NoteReceived call from pt son & they would like referral to [facility]. PATTERN HAND tasked to make referral. [facility]09-06-2023 NoteProgress Note SUBJECTIVE: No acute events overnight. Abdominal [...] based on abdominal discomfort and tolerating diet [facility] [id number] NoteCare Management Progress Note Pt remains on 2E due to abd pain-improving. Constipation-resolved. Follow up CXR for moderate to large pleural effusions. Met with pt to discuss SNF choices. Pt [facility] Notified PATTERN HAND to make referrals. Await response from SNF [...] PM Length of Stay (Days): 5 GMLOS: 2.6[facility]09-06-2023 NoteReferral placed to SNF- [facility] via Careport per TCC request. Await review and response regarding ability to accept. TCC notified. [facility]09-06-2023 Note* Care Coordination - Stef Cox - 10/15/2022 11:37 AM EDT Referral placed to SNF- [facility] sent to [facility] via Careport per TCC request. Await review and response regarding ability to accept. TCC notified. [facility] HospitalTdiehu85-95-7357 Note* Care Coordination - Joy Longo RN - 10/15/2022 11:35 AM EDT Received call from pt son & they would like referral to [facility]. PATTERN HAND tasked to make referral. [facility] HospitalQpeprj54-88-8648 Note* Care Coordination - Joy Longo RN - 10/15/2022 10:29 AM EDT Images from the original note were not included. Care Management Progress Note Pt remains on 2E due to abd pain-improving. Constipation-resolved. Follow up CXR for moderate to large pleural effusions. Met with pt to discuss SNF choices. Pt choices [facility]. Notified PATTERN HAND to make referrals. Await response from SNF [...] Length of Stay (Days): 5 GMLOS: 2.6 [facility] [id number] Note* Care Coordination - Stef Cox - 10/15/2022 10:26 AM EDT Referral placed to SNF- [facility] via Careport per TCC request. Await review and response regarding ability to accept. TCC notified. [facility] [id number] Note* Care Coordination - Remy Whitney RN - 10/14/2022 4:12 PM EDT Care Managment Initial Assessment Date: 10/14/2022 Patient Name: Katherine Judge : 1935 Patient Information Source of Information: Patient Cognition/Language: WFL - Within Functional Limits Permission given to speak with patient sales representative business courses/caregiver as indicated: Yes (Ganga Judge, son, ) Confirmation of Payer with patient/family: Yes Payer Name: Medicare : No (Spouse is a . Made referral to [employer]) Confirmation of [...] Living Prescription Coverage: Yes Pharmacy Used: [facility] in [place] Medication Management: Independent Transportation/Shopping: Independent [...] Additional Information: Chart reviewed. Patient admitted to [facility] for treatment of Proctocolitis. Full liquid diet. PT/OT recommends SNF. Met with patient at bedside. Explained role. She is very pleasant. 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 Reports her son is helpful and lives 20 minutes away. Independent with adls. She does not drive. +PCP, +RX cov, +DME. Discussed SNF. Patient interested. But, wants to discuss with son first. Served Medicare Choice listing. No insurance authorization required to admit to SNF. DC plan: TBD Home with Home care vs SNF Tasked RAGINI perez to follow Remy Whitney RN T [facility] [id number] NoteHospitalist Progress Note 10/14/2022 [phone]: Please secure chat me for patient care issues. [phone]: Please secure chat [facility] night Hospitalist for any issues. Subjective: Admit Date: 10/10/2022 PCP: Saida Gardiner Room#: B2-259/B2-259 A Interval History: Patient is lying on the bed, abdominal pain is better. Complaining of multiple episodes of diarrhea. Denies any nausea or vomiting. No other significant overnight issues. Adult diet Full liquid @[id number]@ 24HR INTAKE/OUTPUT: No intake or output data in the 24 hours ending 10/14/22 1342 Past Medical History: Past Medical History: Diagnosis Date CAD (coronary artery disease) Hypothyroidism Ischemic colitis (HCC) LABS: CBC: Recent Labs 10/12/2263210/13/22 0308 10/14/22 0144 WBC 12.3* 7.8 6.3 RBC 2.91* 2.88* 3.05* HGB 10.1* 9.8* 10.4* HCT 30.0* 29.3* 31.0* MCV 103.0* 101.4* 101.5* RDW 13.7 13.8 13.4 PLT 205 201 213 BMP: Recent Labs 10/12/2263210/13/22 0308 10/14/22 0144 NA 141 138 139 [...] ordered. PT OT evaluated the patient recommended half-way facility. -am labs, replace lytes prn -increase activity -DVT prophylaxis: [] Lovenox [] Heparin [] SCDs [x] Encourage ambulation [] Already on Anticoagulation Anticipated Discharge - Date -1 to 2 days - Location -half-way facility - Pending the following -clinical improvement/placement Total time spent (which include face to face and non face to face encounters) : 25 minutes Toxic drug monitoring/narrow therapeutic index drug monitoring : # Drug name : # Route administered : # Method of monitoring : Extended Emergency Contact Information Primary Emergency Contact: Ganga Judge Mobile Relation: Son Preferred language: Kazakh Superintendent Electric Power needed? No Eder Monterroso MD Division of Hospitalist Medicine [facility] PAGER: [employer] [facility] [id number] NoteGASTROENTEROLOGY PROGRESS NOTE Patient: Katherine Judge : 1935 [...] signed by Ron Vines DO 10/13/2022 2:25 [facility] [id number] NoteHospitalist Progress Note 10/13/2022 [phone]: Please page me ([phone]) for patient care issues. [phone]: Please page [facility] Hospitalist for any issues. Subjective: Admit Date: 10/10/2022 PCP: Saida Gardiner Room#: B2-203/B2-287 A Interval History: No overnight issues. Denies [...] [] Already on Anticoa (more content not included)...[facility] 10-12-2022 NoteHospitalist Progress Note 10/12/[id number]: Please page me ([phone]) for patient care issues. [phone]: Please page [facility] Hospitalist for any issues. Subjective: Admit Date: [...] Mobile Relation: Son Pre (more content not included)...[facility] [id number] Note GASTROENTEROLOGY PROGRESS NOTE Patient: Katherine Judge : [...] signed by Ron Vines DO 10/12/2022 10:[address] [facility]09-03-2023 Consult note* Marilu Whitaker RPh - 10/12/2022 12:14 PM EDT Vancomycin therapy has been discontinued by Dr. Tobar on 10-12-22. Thank you for the consult. Pharmacy signing off for vancomycin dosing. Marilu Whitaker RPh, Date: 10/12/22 Time: 12:14 PM [facility] [id number] Consult note* Marilu Whitaker RPh - 10/12/2022 12:14 PM EDT Vancomycin therapy has been discontinued by Dr. Tobar on 10-12-22. Thank you for the consult. Pharmacy signing off for vancomycin dosing. Marilu Whitaker RPh, Date: 10/12/22 Time: 12:14 PM * Ron Vines DO - 10/11/2022 11:11 AM EDTAssociated Order(s): IP CONSULT TO GI Images from [...] over the past week. Patient states had abowel movement yesterday however she has been constipated. Prior history of bowel obstructions. No associated N/V, F/C/S. CT A/P in the ED suggestive of a large stool burden in the distal colon near the rectosigmoid junction with some associated rectosigmoid wall thickening. Denies any blood in thestool in the way of melena or hematochezia. No BMs since admission. PAST MEDICAL HISTORY: Past Medical History: Diagnosis Date CAD (coronary artery disease) Hypothyroidism Ischemic colitis (CMS/HCC) PAST SURGICAL HISTORY: Past Surgical History: Procedure Laterality Date OTHER SURGICAL HISTORY she reports "bowel resections" in the past SOCIAL HISTORY: TOBACCO: Social [...] 2 times daily, Use in each nostril asdirected buPROPion XL (WELLBUTRIN XL) 150 mg, Oral, [...] Oral, Daily, Ranjeet Tobar DO, 150 mg at10/11/22 1000 cetirizine (ZyrTEC) tablet 10 mg, 10 [...] IntraVENous, q3h PRN, Akil Lucio MD, 0.5 mgat 10/11/22951 ipratropium-albuterol (Duo-Neb) 0.5-2.5 mg/3 mL nebulizer solution 3 mL, 3 mL, Nebulization, q4h PRN, Akil Lucio MD isosorbide mononitrate ER (Imdur) 24 hr tablet 60 mg, 60 mg, Oral, Daily, Ranjeet Tobar DO, 60 mg at 10/11/22953 meropenem (Merrem) 1,000 mg in sodium chloride [...] Cholelithiasis with mild intrahepatic and extrahepatic biliary dilatation.The common bile duct measures up to 1 [...] colon, particularly near the rectosigmoid junction with associatedrectosigmoid wall thickening. Postsurgical changes of the proximal colon. There is diastases of therectus muscles with partial extension of the transverse [...] are any questions or concerns please feel freeto contact the dictating provider for clarification.) Electronically signed by Ron Vines DO 10/11/2022 11:11 AM * Ligia Aguila, [facility] - 10/10/2022 9:20 PM EDT Pharmacy Note Vancomycin Consult Non-QUILL LAYER Katherine Judge is a 87 y.o. year [...] Will continue to follow. documented in this encounterSSelect Medical Specialty Hospital [facility] [id number] Plan of care note* Care Plan - Andreia Hay RN - 10/11/2022 4:47 PM EDT The patient is Moderately Stable - Low [...] address these barriers include encourage fluids . [facility] [id number] NoteHospitalist Progress Note 10/11/2022 [phone]: Please page pr ([phone]) for patient care issues. [phone]: Please page [facility] night Hospitalist for any issues. Subjective: Admit [...] Ganga Judge Mobile Relation: Son Preferred language: Kazakh Superintendent Electric Power needed? No Ranjeet Tobar DO Division of Hospitalist Medicine Inpatient Medical Services/[facility] PAGER: [facility] [phone] NoteGASTROENTEROLOGY CONSULTATION REASON FOR CONSULT: The patient was [...] Laterality Date OTHER SURGICAL HISTORY she reports "bowel resections" in the past SOCIAL HISTORY: TOBACCO: Social [...] Akil Lucio MD, 40 mg at 10/11/22 09 gabapentin (Neurontin) tablet 600 mg, 600 mg, [...] at 10/11/22 1001 se (more content not included)...[facility]09-02-2023 Consult note * Ron Vines DO - 10/11/2022 11:11 AM EDTAssociated Order(s): IP CONSULT TO GI Images from [...] over the past week. Patient states had abowel movement yesterday however she has been constipated. Prior history of bowel obstructions. No associated N/V, F/C/S. CT A/P in the ED suggestive of a large stool burden in the distal colon near the rectosigmoid junction with some associated rectosigmoid wall thickening. Denies any blood in thestool in the way of melena or hematochezia. No BMs since admission. PAST MEDICAL HISTORY: Past Medical History: Diagnosis Date CAD (coronary artery disease) Hypothyroidism Ischemic colitis (CMS/HCC) PAST SURGICAL HISTORY: Past Surgical History: Procedure Laterality Date OTHER SURGICAL HISTORY she reports "bowel resections" in the past SOCIAL HISTORY: TOBACCO: Social [...] 2 times daily, Use in each nostril asdirected buPROPion XL (WELLBUTRIN XL) 150 mg, Oral, [...] Ranjeet Tobar DO, 10 mg at 10/11/22 09 azelastine (Astelin) 0.1 % nasal spray 1 spray, 1 spray, Each Nostril, BID, Ranjeet Tobar DO buPROPion XL (Wellbutrin XL) 24 hr tablet 150 mg, 150 mg, Oral, Daily, Ranjeet Tobar DO, 150 mg at10/11/22 1000 cetirizine (ZyrTEC) tablet 10 mg, 10 [...] Akil Lucio MD, 40 mg at 10/11/22 09 gabapentin (Neurontin) tablet 600 mg, 600 mg, Oral, BID, Ranjeet Vogt, DO, 600 mg at 10/11/22 0954 HYDROmorphone (Dilaudid) injection 0.5 mg, 0.5 mg, IntraVENous, q3h PRN, Akil Lucio MD, 0.5 mgat 10/11/22 0952 ipratropium-albuterol (Duo-Neb) 0.5-2.5 mg/3 mL [...] Cholelithiasis with mild intrahepatic and extrahepatic biliary dilatation.The common bile duct measures up to 1 [...] colon, particularly near the rectosigmoid junction with associatedrectosigmoid wall thickening. Postsurgical changes of the proximal colon. There is diastases of therectus muscles with partial extension of the transverse [...] are any questions or concerns please feel freeto contact the dictating provider for clarification.) Electronically signed by Ron Vines DO 10/11/2022 11:11 AM [facility]09-01-2023 NoteAttending History and Physical Admit Date: 10/10/2022 PCP: [...] Laterality Date OTHER SURGICAL HISTORY she reports "bowel resections" in the past Social History: Social History [...] the last 72 hours. (more content not included)...[facility] [id number] Plan of care note* Care Plan - July Stroud RN - 10/10/2022 9:57 PM EDT The patient is Moderately Stable - Low [...] these barriers include continue current care plan. [facility] [id number] Consult note* Ligia Aguila [facility] - 10/10/2022 9:20 PM EDT Pharmacy Note Vancomycin Consult Non-QUILL LAYER Katherine Judge is a 87 y.o. year [...] for the consult. Will continue to follow. [facility] [id number] History and physical note* Akil Lucio MD - 10/10/2022 8:37 PM EDT Images from the original note were not [...] abdomen. She has had some decreased bowel move ments/constipation recently. She also has had a cough productive of thick, yellow sputum that beganyesterday. She is requiring some oxygen today. She [...] Laterality Date OTHER SURGICAL HISTORY she reports "bowel resections" in the past Social History: Social History [...] and review home meds and restart as fredi ropriate, discharge planning, see admission orders. 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 No Code status: No Order -see [...] H&P to the patient's PCP. Thank you. [employer] Phone: [phone]) 766-169209-01-2023 History and physical note* Akil Lucio MD - 10/10/2022 8:37 PM EDT Images from the original note were not [...] abdomen. She has had some decreased bowel move ments/constipation recently. She also has had a cough productive of thick, yellow sputum that beganyesterday. She is requiring some oxygen today. She [...] Laterality Date OTHER SURGICAL HISTORY she reports "bowel resections" in the past Social History: Social History [...] and review home meds and restart as fredi ropriate, discharge planning, see admission orders. 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 No Code status: No Order -see [...] patient's PCP. Thank you. documented in this [facility]09-01-2023 Emergency department Note* NADIYA Cleary - 10/10/2022 2:19 PM EDT Guided family back NADIYA Cleary 10/10/22 1419 [facility] [id number] Emergency department Note* NADIYA Cleary - 10/10/2022 2:19 PM EDT Guided family back NADIYA Cleary 10/10/22 1419 * Evelin Salcedo DO - 10/10/2022 1:26 PM EDT Emergency Department Encounter [facility] ED Patient: Katherine Judge : 1935 Date of Evaluation: 10/10/2022 ED Supervising Physician: Evelin A [place], DO I independently examined and evaluated Katherine [...] denies any fevers or chills. Patient states sheis just feeling unwell Focused exam: I have [...] SBO, colitis, gastritis, pancreatitis, or other acute intra- abdominal process. Plan to obtain CT abdomen pelvis [...] made by myself in conjunction with the [facility]ED[facility]. For all further details of the patient's emergency department visit, please see their documentation. (Comment: Please note this report has been produced using speech recognition software and may contain errors related to that system including errors in grammar, punctuation, and spelling, as well as words and phrases that may be inappropriate. If there are any questions or concerns please feel freeto contact the dictating provider for clarification.) Evelin Salcedo DO [employer] Evelin Salcedo DO 10/10/222130 * Celeste Oneal PA-C - 10/10/2022 1:26 PM EDT EMERGENCY DEPARTMENT ENCOUNTER Pt Name: Katherine Judge [...] She is denying any nausea or vomiting. Nodiarrhea or constipation. Denies any urinary symptoms. No [...] Laterality Date OTHER SURGICAL HISTORY she reports "bowel resections" in the past CURRENT MEDICATIONS Previous Medications [...] Culture. Procedure Abnormality Status --------- ------ Complete Urinalysis[[id number]] Please view results for these tests on [...] tachycardia. Patient provided with fluids, pain and nauseacontrol, reports improvement of her symptoms. Antibiotics begun with concern for initial SIRS criteria. Patient will be admitted for further treatment of abdominal pain, proctocolitis, and constipation. The patient will be Admitted. Patient is in agreement with this plan. OCT- CORE MEASURE DATA SIRS Criteria Sepsis Criteria Severe Sepsis Criteria Septic Shock Criteria Must meet 2: [] Temperature > 100.4 F (38 C) or < 96.8 F (36 C) [x] HR > 90 [] RR > 20 [] WBC > 12 or < 4 or 10% bands Must be confirmed or suspected to move forward with diagnosisof sepsis. [x] Infection Confirmed or Suspected. [] [...] are any questions or concerns please feel freeto contact the dictating provider for clarification.) Celeste Oneal PA-C (electronically signed) Emergency Medicine Provider Celeste Oneal PA-C 10/10/22 1729 documented in this [facility]09-01-2023 Physician Emergency department Note* Evelin Salcedo DO - 10/10/2022 1:26 PM EDT Emergency Department Encounter [facility] ED Patient: Katherine Judge : [...] denies any fevers or chills. Patient states sheis just feeling unwell Focused exam: I have [...] SBO, colitis, gastritis, pancreatitis, or other acute intra- abdominal process. Plan to obtain CT abdomen pelvis [...] made by myself in conjunction with the FREDI. For all further details of the patient's emergency department visit, please see their documentation. (Comment: Please note this report has been produced using speech recognition software and may contain errors related to that system including errors in grammar, punctuation, and spelling, as well as words and phrases that may be inappropriate. If there are any questions or concerns please feel freeto contact the dictating provider for clarification.) Evelin Salcedo DO [employer] Evelin Salcedo DO 10/10/222130 [facility] [employer] Phone: [phone]) 757-713209-01-2023 Physician Emergency department Note* Celeste Oneal PA-C - 10/10/2022 1:26 PM EDT EMERGENCY DEPARTMENT ENCOUNTER Pt Name: Katherine Judge [...] She is denying any nausea or vomiting. Nodiarrhea or constipation. Denies any urinary symptoms. No [...] Laterality Date OTHER SURGICAL HISTORY she reports "bowel resections" in the past CURRENT MEDICATIONS Previous Medications [...] Culture. Procedure Abnormality Status --------- ------ Complete Urinalysis[[id number]] Please view results for these tests on [...] tachycardia. Patient provided with fluids, pain and nauseacontrol, reports improvement of her symptoms. Antibiotics begun with concern for initial SIRS criteria. Patient will be admitted for further treatment of abdominal pain, proctocolitis, and constipation. The patient will be Admitted. Patient is in agreement with this plan. SEP- CORE MEASURE DATA SIRS Criteria Sepsis Criteria Severe Sepsis Criteria Septic Shock Criteria Must meet 2: [] Temperature > 100.4 F (38 C) or < 96.8 F (36 C) [x] HR > 90 [] RR > 20 [] WBC > 12 or < 4 or 10% bands Must be confirmed or suspected to move forward with diagnosisof sepsis. [x] Infection Confirmed or Suspected. [] [...] are any questions or concerns please feel freeto contact the dictating provider for clarification.) Celeste Oneal PA-C (electronically signed) Emergency Medicine Provider Celeste Oneal PA-C 10/10/22 9081 [facility] HospitalRryneg02-81-1689 Evaluation + Plan note* Assessment & Plan Note - Yana Case - 10/07/2022 2:57 PM EDTAssociated Problem(s): Lower abdominal pain Recurrent, to return to established GI (Dr. Garcia) for further evaluation. [facility] Work Phone: [phone]) [phone] Miscellaneous Notes* Assessment & Plan Note - Yana Case - 10/07/2022 2:57 PM EDTAssociated Problem(s): Lower abdominal pain Recurrent, to return to established GI (Dr. Garcia) for further evaluation. * Assessment & Plan Note - Yana Case - 10/07/2022 2:50 PM EDTAssociated Problem(s): Anemia in other chronic diseases classified elsewhere 05/2022 CBC normal Patient to stop oral iron at this time. Repeat labs to be done prior to 6 month follow-up. * Assessment & Plan Note - Yana Case - 10/07/2022 2:47 PM EDTAssociated Problem(s): Benign essential hypertension BP is under good control, 122/70 in office today. Continue present regimen. * Assessment & Plan Note - Yana Case - 10/07/2022 2:39 PM EDTAssociated Problem(s): Osteoporosis 04/2022 DEXA osteopenia 2/3 sites. [...] daily and calcium at 1500 mg daily. * Assessment & Plan Note - Yana Case - 10/07/2022 2:23 PM EDTAssociated Problem(s): Chronic kidney disease, stage III (moderate) ([facility]) 05/2022 labs at baseline for patient. Will continue to monitor on regular basis. Revisited good BP control, avoiding NSAIDs, and adequate hydration as measures to further protect kidneys. * Assessment & Plan Note - Yana Case - 10/07/2022 2:22 PM EDTAssociated Problem(s): Hypercholesterolemia 05/2022 TC/HDL ratio 3.3, LDL 84, TRIG 135 Goal TC/HDL ratio 3.4 or less, LDL 99 or less, TC 200 or less, and TRIG 150 or less. Continue current regimen of Atorvastatin, Isosorbide, and Plavix. Continue heart healthy diet Continue exercise as tolerated * Assessment & Plan Note - Yana Case - 10/07/2022 2:22 PM EDTAssociated Problem(s): CAD (coronary artery disease) 05/2022 TC/HDL ratio 3.3, LDL 84, TRIG 135 Goal TC/HDL ratio 3.4 or less, LDL 99 or less, TC 200 or less, and TRIG 150 or less. Continue current regimen of Atorvastatin, Isosorbide, and Plavix. Continue heart healthy diet Continue exercise as tolerated * Assessment & Plan Note - Yana Case - 10/07/2022 2:21 PM EDTAssociated Problem(s): Allergic rhinitis Numerous long-standing allergies, including [...] Allergy/immunology referral placed today. documented in this encounterPrem[facility] Work Phone: [phone]) [phone] Evaluation + Plan note* Assessment & Plan Note - Yana Case - 10/07/2022 2:50 PM EDTAssociated Problem(s): Anemia in other chronic diseases classified elsewhere 05/2022 CBC normal Patient to stop oral iron at this time. Repeat labs to be done prior to 6 month follow-up. [facility] Work Phone: [phone] Evaluation + Plan note* Assessment & Plan Note - Yana Case - 10/07/2022 2:47 PM EDTAssociated Problem(s): Benign essential hypertension BP is under good control, 122/70 in office today. Continue present regimen. [facility] Work Phone: [phone] Evaluation + Plan note* Assessment & Plan Note - Yana Case - 10/07/2022 2:39 PM EDTAssociated Problem(s): Osteoporosis 04/2022 DEXA osteopenia 2/3 sites. [...] daily and calcium at 1500 mg daily. [facility] Work Phone: [phone]) [phone] Evaluation + Plan note* Assessment & Plan Note - Yana Case - 10/07/2022 2:23 PM EDTAssociated Problem(s): Chronic kidney disease, stage III (moderate) ([facility]) 05/2022 labs at baseline for patient. Will continue to monitor on regular basis. Revisited good BP control, avoiding NSAIDs, and adequate hydration as measures to further protect kidneys. [facility] Work Phone: [phone] Evaluation + Plan note* Assessment & Plan Note - Yana Case - 10/07/2022 2:22 PM EDTAssociated Problem(s): Hypercholesterolemia 05/2022 TC/HDL ratio 3.3, LDL 84, TRIG 135 Goal TC/HDL ratio 3.4 or less, LDL 99 or less, TC 200 or less, and TRIG 150 or less. Continue current regimen of Atorvastatin, Isosorbide, and Plavix. Continue heart healthy diet Continue exercise as tolerated [facility] Work Phone: [phone]) [phone] Evaluation + Plan note* Assessment & Plan Note - Yana Case - 10/07/2022 2:22 PM EDTAssociated Problem(s): CAD (coronary artery disease) 05/2022 TC/HDL ratio 3.3, LDL 84, TRIG 135 Goal TC/HDL ratio 3.4 or less, LDL 99 or less, TC 200 or less, and TRIG 150 or less. Continue current regimen of Atorvastatin, Isosorbide, and Plavix. Continue heart healthy diet Continue exercise as tolerated [facility] Work Phone: [phone] Evaluation + Plan note* Assessment & Plan Note - Yana Case - 10/07/2022 2:21 PM EDTAssociated Problem(s): Allergic rhinitis Numerous long-standing allergies, including [...] nasal sprays. 4. Allergy/immunology referral placed today. [facility] Work Phone: [phone] History of Present illness Narrative* Christ Gardiner, DO - 10/07/2022 1:30 PM EDT Subjective Patient ID: Katherine Judge is a 87 y.o. female who presents for Follow-up (Pt presents for 6 monthfollow up- pt states that her allergies have [...] cardiology ECHO 03/2022 LV 60-65%, impaired relaxation, [id number] prolapse of the P2 segment of the [...] tender to deep palpation) in the suprapubic area.There is no guarding. Musculoskeletal: Right lower leg: [...] of Christ Gardiner DO. documented in this [facility] Work Phone: [phone]) [phone] Instructions* Patient Instructions* Christ Gardiner DO - 10/07/2022 1:30 PM [...] exercise as tolerated Osteoporosis 04/2022 DEXA osteopenia 2 sites. Previously disinclined to initiate bisphosphonate due [...] sooner follow-up if needed. documented in this [facility] Work Phone: [phone]) [phone] Evaluation + Plan note* Assessment & Plan Note - Yana Case - 06/19/2022 11:04 AM EDTAssociated Problem(s): Pneumonia due to infectious organism 05/30/2022 [...] repeat CXR ordered to be done 06/29/2022. [facility] Work Phone: [phone] Miscellaneous Notes* Assessment & Plan Note - Yana Case - 06/19/2022 11:04 AM EDTAssociated Problem(s): Pneumonia due to infectious organism 05/30/2022 [...] repeat CXR ordered to be done 06/29/2022. * Assessment & Plan Note - Yana Case - 06/19/2022 11:03 AM EDTAssociated Problem(s): Abdominal pain (Resolved 06/19/2022) Reported at prior visit; she denies any abdominal pain or GI symptoms at visit today. No further work-up indicated at this time. * Assessment & Plan Note - Yana Case - 06/19/2022 10:59 AM EDTAssociated Problem(s): Hypoxia (Resolved 06/19/2022) Hypoxia associated with pneumonia diagnosed 05/30/2022 Patient has completed treatment with Levaquin. O2 91% at rest in office today, patient reports O2 averaging 91-94 at home. Physical exam is reassuring today, patient reports that she is improved symptomatically. Repeat CXR ordered to be done 06/29/2022. [facility] Work Phone: [phone] Evaluation + Plan note* Assessment & Plan Note - Yana Case - 06/19/2022 11:03 AM EDTAssociated Problem(s): Abdominal pain (Resolved 06/19/2022) Reported at prior visit; she denies any abdominal pain or GI symptoms at visit today. No further work-up indicated at this time. [facility] Work Phone: [phone] Evaluation + Plan note* Assessment & Plan Note - Yana Case - 06/19/2022 10:59 AM EDTAssociated Problem(s): Hypoxia (Resolved 06/19/2022) Hypoxia associated with pneumonia diagnosed 05/30/2022 Patient has completed treatment with Levaquin. O2 91% at rest in office today, patient reports O2 averaging 91-94 at home. Physical exam is reassuring today, patient reports that she is improved symptomatically. Repeat CXR ordered to be done 06/29/2022. [facility] Work Phone: [phone]) 304-459005-11-2023 History of Present illness Narrative* Christ Gardiner, - 06/19/2022 10:40 AM EDT Subjective Patient ID: Katherine Judge is a [...] ordered 05/30/2022 Patient to meet with our antisqueak filler today to get sooner follow-up with cardiology [...] any worsening of abdominal pain or develops fever,vomiting, diarrhea she is to go to the [...] course is indicated at this time, however, incasesymptoms starting getting worse instead of better or [...] Sitting, BP Cuff Size: Adult) Pulse 61 Temp36.7 C (98 F) Resp 16 Wt 47.9 kg (105 lb 8 oz) SpO2 91% BMI 24.08 kg/m Physical Exam Vitals and nursing note reviewed. Constitutional: General: She is not in acute distress. Appearance: Normal appearance. She is not toxic-appearing. HENT: Head: Normocephalic and atraumatic. Mouth/Throat: Lips: [place]. Mouth: Mucous membranes are moist. Eyes: Extraocular [...] of Christ Gardiner DO. documented in this [facility] Work Phone: [phone] History of Present illness Narrative* 06/12/22: Mrs Judge is an 87 year old female with anemia, mitral regurg, rheumatic fever as a child, hypothyroidism, hypertension, hyperlipidemia, CA,m CAD, CABG and then an angioplasty after CABG, carotid artery disease, CVA, CKD, chronic colitis, osteoporosis, insomnia and peripheral neuropathy, here for an acute visit for complaints of shortness of breath. She was recently dx with pneumonia and she is currently on her second round of levaquin. Her weight is down 2 lbs since the initiation oflasix, however the patient states she "has no appetite." She no longer has any lower extremity edema. Her GERD is much improved with Pepcid. * 03/12/22: Mrs Judge is an 86 year old female with anemia, mitral regurg, rheumatic fever as a child, hypothyroidism, hypertension, hyperlipidemia, CA,m CAD, CABG and then an angioplasty after [...] have shared the preliminary results with her. * 08/14/2021:Mrs Judge is an 86 year old female with anemia, rheumatic fever as a child, hypothyroidism, hypertension, hyperlipidemia, CA,m CAD, CABG and then an angioplasty after [...] been very well controlled, averaging around 124/768. * 04/05/21: Mrs Judge is here for a routine follow up for her hypertension and CKD. Her home BPs have been eelvated (150/88) until yesterday, when she developed severe watery diarrhea. She is complaining of dehydration and not feeling well. She took an antidiarrheal and has not had a bowel movement since then. 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 She denies any complaints of chest pain, shortness of breath, palpitations, lower extremityedema, dizziness or syncopal episodes. She reports elevated home BP readings. Today, her BP is 144/74. Her weight is up 5 lbs since December. [facility] [place] Work Phone: [phone] Evaluation + Plan note* Assessment & Plan Note - Yana Case - 06/10/2022 3:02 PM EDTAssociated Problem(s): Benign essential hypertension BP is under good control, 130/62 in office today. Continue present regimen. [facility] Work Phone: [phone] Miscellaneous Notes* Assessment & Plan Note - Yana Case - 06/10/2022 3:02 PM EDTAssociated Problem(s): Benign essential hypertension BP is under good control, 130/62 in office today. Continue present regimen. * Assessment & Plan Note - Yana Case - 06/10/2022 3:01 PM EDTAssociated Problem(s): Abdominal pain 3 day history of [...] any worsening of abdominal pain or develops fever,vomiting, diarrhea she is to go to the ER for evaluation. * Assessment & Plan Note - Yana Case - 06/10/2022 2:56 PM EDTAssociated Problem(s): Hypoxia 05/30/2022 CXR: Possible focus of [...] course is indicated at this time, however, incasesymptoms starting getting worse instead of better or do not resolve I have printed additional course of antibiotics (Levaquin x 5 days) for patient to fill if needed. Will plan for repeat CXR in 3-4 weeks. Will have patient back in office in 7-10 days to reassess lungs and abdomen. Will plan to order her follow-up x-ray at her next check in 7-10 days. * Assessment & Plan Note - Yana Case - 06/10/2022 2:55 PM EDTAssociated Problem(s): Pneumonia due to infectious organism 05/30/2022 [...] course is indicated at this time, however, incasesymptoms starting getting worse instead of better or [...] check in 7-10 days. [facility] Work Phone: [phone] Evaluation + Plan note* Assessment & Plan Note - Yana Case - 06/10/2022 3:01 PM EDTAssociated Problem(s): Abdominal pain 3 day history of [...] any worsening of abdominal pain or develops fever,vomiting, diarrhea she is to go to the ER for evaluation. [facility] Work Phone: [phone] Evaluation + Plan note* Assessment & Plan Note - Yana Case - 06/10/2022 2:56 PM EDTAssociated Problem(s): Hypoxia 05/30/2022 CXR: Possible focus of [...] course is indicated at this time, however, incasesymptoms starting getting worse instead of better or do not resolve I have printed additional course of antibiotics (Levaquin x 5 days) for patient to fill if needed. Will plan for repeat CXR in 3-4 weeks. Will have patient back in office in 7-10 days to reassess lungs and abdomen. Will plan to order her follow-up x-ray at her next check in 7-10 days. [facility] Work Phone: [phone] Evaluation + Plan note* Assessment & Plan Note - Yana Case - 06/10/2022 2:55 PM EDTAssociated Problem(s): Pneumonia due to infectious organism 05/30/2022 [...] course is indicated at this time, however, incasesymptoms starting getting worse instead of better or do not resolve I have printed additional course of antibiotics (Levaquin x 5 days) for patient to fill if needed. Will plan for repeat CXR in 3-4 weeks. Will have patient back in office in 7-10 days to reassess lungs and abdomen. Will plan to order her follow-up x-ray at her next check in 7-10 days. [facility] Work Phone: [phone] History of Present illness Narrative* Christ Gardiner DO - 06/10/2022 1:30 PM EDT Subjective Patient ID: Katherine Judge is a [...] ordered 05/30/2022 Patient to meet with our antisqueak filler today to get sooner follow-up with cardiology [...] pain. She denies any diarrhea. She previous hadbout of constipation but had large BM and [...] Sitting, BP Cuff Size: Adult) Pulse 66 Temp36.7 C (98 F) Resp 14 Wt 47.8 [...] any worsening of abdominal pain or develops fever,vomiting, diarrhea she is to go to the [...] course is indicated at this time, however, incasesymptoms starting getting worse instead of better or [...] course is indicated at this time, however, incasesymptoms starting getting worse instead of better or [...] of Christ Gardiner DO. documented in [facility] Work Phone: [phone] Instructions* Patient Instructions* Yana Case - 06/10/2022 1:30 PM EDT [...] any worsening of abdominal pain or develops fever,vomiting, diarrhea she is to go to the ER for evaluation. PNEUMONIA Patient has completed treatment with Levaquin. O2 92% at rest in office today, patient reassuring Patient reports symptoms of colored secretions, cough, fatigue are improving at this time. Her exam was overall reassuring in office. Since improving do not feel additional antibiotic course is indicated at this time, however, incasesymptoms starting getting worse instead of better or [...] today. Continue present regimen. documented in [facility] Work Phone: [phone] Evaluation + Plan note* Assessment & Plan Note - Yana Case - 06/01/2022 10:53 AM EDTAssociated Problem(s): Hypoxia Rec ER, pt declined Feels [...] okay overall. She wishes to work this [facility] outpatient as this has been ongoing for some time. She assures me she will get home pulse ox formonitoring. Red flag symptoms reviewed, patient to go straight to ED with any chest pain, significan t SOB, palpitations, or diaphoresis. CXR ordered today. Will have patient meet with our antisqueak filler today to get sooner follow-up with cardiology in the next1-2 weeks, she is already established here at . Follow-up with me in 1 week. [facility] Work Phone: [phone] Miscellaneous Notes* Assessment & Plan Note - Yana Case - 06/01/2022 10:53 AM EDTAssociated Problem(s): Hypoxia Rec ER, pt declined Feels [...] okay overall. She wishes to work this [facility] outpatient as this has been ongoing for some time. She assures me she will get home pulse ox formonitoring. Red flag symptoms reviewed, patient to go straight to ED with any chest pain, significan t SOB, palpitations, or diaphoresis. CXR ordered today. Will have patient meet with our antisqueak filler today to get sooner follow-up with cardiology in the next1-2 weeks, she is already established here at . Follow-up with me in 1 week. * Assessment & Plan Note - Yana Case - 05/30/2022 3:57 PM EDTAssociated Problem(s): Osteoporosis Due to hypoxia when rooming today will defer osteoporosis discussion until this work up is complete. * Assessment & Plan Note - Yana Case - 05/30/2022 3:53 PM EDTAssociated Problem(s): Benign essential hypertension BP under good control, however, due to patient being hypoxic, will increase Doxazosin from 1 mg to 2 mg daily. Continue Metoprolol 25 BID and Lasix. * Result Encounter Note - Christ Gardiner DO - 05/30/2022 2:30 PM EDT Addendum 423 Poss r lobe infiltrate Called pt Admits [...] pulse ox at home) documented in [facility] Work Phone: [phone] Evaluation + Plan note* Assessment & Plan Note - Yana Case - 05/30/2022 3:57 PM EDTAssociated Problem(s): Osteoporosis Due to hypoxia when rooming today will defer osteoporosis discussion until this work up is complete. [facility] Work Phone: [phone] Evaluation + Plan note* Assessment & Plan Note - Yana Case - 05/30/2022 3:53 PM EDTAssociated Problem(s): Benign essential hypertension BP under good control, however, due to patient being hypoxic, will increase Doxazosin from 1 mg to 2 mg daily. Continue Metoprolol 25 BID and Lasix. [facility] Work Phone: [phone] History of Present illness Narrative* Christ Gardiner DO - 05/30/2022 2:30 PM EDT Subjective Patient ID: Katherine Judge is a [...] time. She states she does NOT have overtSOB and feels okay. She wishes to work [...] okay overall. She wishes to work this [facility] outpatient as this has been ongoing for some time. She assures me she will get home pulse ox formonitoring. Red flag symptoms reviewed, patient to go straight to ED with any chest pain, significan t SOB, palpitations, or diaphoresis. CXR ordered today. Will have patient meet with our antisqueak filler today to get sooner follow-up with cardiology in the next1-2 weeks, she is already established here at [...] Attestation By signing my name below, I, Yana Manpreet, Tomas attest that this documentation has been [...] pulse ox at home) documented in this [facility]Prem[facility] Work Phone: [phone] Progress note* Result Encounter Note - Christ Gardiner DO - 05/30/2022 2:30 PM EDT Addendum 06-01-22 Poss r lobe infiltrate Called [...] monitoring sx and pulse ox at home) [facility] Work Phone: [phone] Evaluation + Plan note* Assessment & Plan Note - Yana Case - 04/15/2022 3:28 PM ESTAssociated Problem(s): Routine general medical examination at health care facility Vaccines and screenings reviewed DEXA ordered [facility] Work Phone: [phone] Miscellaneous Notes* Assessment & Plan Note - Yana Case - 04/15/2022 3:28 PM ESTAssociated Problem(s): Routine general medical examination at [facility] care facility Vaccines and screenings reviewed DEXA ordered * Assessment & Plan Note - Yana Case - 04/15/2022 3:19 PM ESTAssociated Problem(s): Hypercholesterolemia Continue current regimen Repeat lipid panel ordered today. * Assessment & Plan Note - aYna Case - 04/15/2022 3:18 PM ESTAssociated Problem(s): Anemia in other chronic diseases classified elsewhere Repeat CBC ordered today * Assessment & Plan Note - Yana Case - 04/15/2022 3:17 PM ESTAssociated Problem(s): Chronic kidney disease, stage III (moderate) (CMS/HCC) Repeat BMP ordered today * Assessment & Plan Note - Yana Case - 04/15/2022 3:14 PM ESTAssociated Problem(s): GERD (gastroesophageal reflux disease) Continue Pantoprazole + Famotidine Famotidine refilled today Continue to follow-up with GI * Assessment & Plan Note - Yana Case - 04/15/2022 3:13 PM ESTAssociated Problem(s): Benign essential hypertension BP well-controlled, continue present regimen * Assessment & Plan Note - Yana Case - 04/15/2022 3:13 PM ESTAssociated Problem(s): CAD (coronary artery disease) Repeat lipid panel ordered today. Continue current regimen Continue heart healthy diet Continue exercise as tolerated * Assessment & Plan Note - Yana Case - 04/15/2022 3:12 PM ESTAssociated Problem(s): Aortic stenosis ECHO 03/2022 Continue to follow-up with cardiology. * Assessment & Plan Note - Yana Case - 04/15/2022 3:12 PM ESTAssociated Problem(s): Insomnia Stable, continue Mirtazapine 30 mg at bedtime, refilled today. * Assessment & Plan Note - Yana Case - 04/15/2022 3:06 PM ESTAssociated Problem(s): Osteoporosis Last DEXA 2019; repeat DEXA [...] at 1500 mg daily. documented in [facility] Work Phone: [phone] Evaluation + Plan note* Assessment & Plan Note - Yana Case - 04/15/2022 3:19 PM ESTAssociated Problem(s): Hypercholesterolemia Continue current regimen Repeat lipid panel ordered today. [facility] Work Phone: [phone] Evaluation + Plan note* Assessment & Plan Note - Yana Case - 04/15/2022 3:18 PM ESTAssociated Problem(s): Anemia in other chronic diseases classified elsewhere Repeat CBC ordered today [facility] Work Phone: [phone] Evaluation + Plan note* Assessment & Plan Note - Yana Case - 04/15/2022 3:17 PM ESTAssociated Problem(s): Chronic kidney disease, stage III (moderate) (CMS/HCC) Repeat BMP ordered today [facility] Work Phone: [phone] Evaluation + Plan note* Assessment & Plan Note - Yana Case - 04/15/2022 3:14 PM ESTAssociated Problem(s): GERD (gastroesophageal reflux disease) Continue Pantoprazole + Famotidine Famotidine refilled today Continue to follow-up with GI [facility] Work Phone: [phone] Evaluation + Plan note* Assessment & Plan Note - Yana Case - 04/15/2022 3:13 PM ESTAssociated Problem(s): Benign essential hypertension BP well-controlled, continue present regimen [employer] [facility] Work Phone: [phone] Evaluation + Plan note* Assessment & Plan Note - Yana Case - 04/15/2022 3:13 PM ESTAssociated Problem(s): CAD (coronary artery disease) Repeat lipid panel ordered today. Continue current regimen Continue heart healthy diet Continue exercise as tolerated [employer] [facility] Work Phone: [phone] Evaluation + Plan note* Assessment & Plan Note - Yana Case - 04/15/2022 3:12 PM ESTAssociated Problem(s): Aortic stenosis ECHO 03/2022 Continue to follow-up with cardiology. [employer] [facility] [employer] [facility] Work Phone: [phone] Evaluation + Plan note* Assessment & Plan Note - Yana Case - 04/15/2022 3:12 PM ESTAssociated Problem(s): Insomnia Stable, continue Mirtazapine 30 mg at bedtime, refilled today. [facility] Work Phone: [phone] Evaluation + Plan note* Assessment & Plan Note - Yana Case - 04/15/2022 3:06 PM ESTAssociated Problem(s): Osteoporosis Last DEXA 2019; repeat DEXA [...] daily and calcium at 1500 mg daily. [facility] Work Phone: [phone] History of Present illness Narrative* Christ Gardiner DO - 04/15/2022 2:00 PM EST Subjective Reason for Visit: Katherine Judge is an 87 y.o. female here for a Medicare Wellness visit. Past Medical, Surgical, and Family History reviewed and updated in chart. Reviewed all medications by prescribing practitioner or clinical pharmacist (such as prescriptions,OTCs, herbal therapies and supplements) and documented in [...] Sitting, BP Cuff Size: Adult) Pulse 63 Temp36.2 C (97.1 F) (Temporal) Resp 14 Ht 1.41 m (4' 7.5") Wt 49.5 kg (109 lb 1.6 oz) [...] cardiology ECHO 03/2022 LV 60-65%, impaired relaxation, [id number] prolapse of the P2 segment of the [...] of Christ Gardiner DO. documented in this [facility] Work Phone: [phone] History of Present illness Narrative* 08/14/2021:Mrs Judge is an 86 year old female with anemia, rheumatic fever as a child, hypothyroidism, hypertension, hyperlipidemia, CA,m CAD, CABG and then an angioplasty after [...] been very well controlled, averaging around 124/768. * 04/05/21: Mrs Judge is here for a routine follow up for her hypertension and CKD. Her home BPs have been eelvated (150/88) until yesterday, when she developed severe watery diarrhea. She is complaining of dehydration and not feeling well. She took an antidiarrheal and has not had a bowel movement since then. 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 She denies any complaints of chest pain, shortness of breath, palpitations, lower extremityedema, dizziness or syncopal episodes. She reports elevated home BP readings. Today, her BP is 144/74. Her weight is up 5 lbs since December. [facility] [place] Work Phone: [phone] History of Present illness Narrative* 08/14/2021:Mrs Judge is an 86 year old female with anemia, rheumatic fever as a child, hypothyroidism, hypertension, hyperlipidemia, CA,m CAD, CABG and then an angioplasty after [...] been very well controlled, averaging around 124/768. * 04/05/21: Mrs Judge is here for a routine follow up for her hypertension and CKD. Her home BPs have been eelvated (150/88) until yesterday, when she developed severe watery diarrhea. She is complaining of dehydration and not feeling well. She took an antidiarrheal and has not had a bowel movement since then. 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 She denies any complaints of chest pain, shortness of breath, palpitations, lower extremityedema, dizziness or syncopal episodes. She reports elevated home BP readings. Today, her BP is 144/74. Her weight is up 5 lbs since December. [facility] Work Phone: [phone] NoteHospitalist Discharge Summary Katherine Judge : 1935 Admit date: [...] (36.7 ?C) (Temporal) Resp 18 Ht 5' 2" (1.575 m) Wt 105 lb (47.6 kg) [...] Discharge Medications: Katherine Judge Home Medication Instructions JOE:[id number] Printed on:10/22/20 0885 Medication Information acetaminophen (TYLENOL) 500 MG tablet [...] Complexity: follow up within 7-14 calendar days (37954) [x] Severe Complexity: follow up within 7 calendar days (18563) Follow up Testing, Pending results or Referrals [...] patient is scheduled fo (more content not included)...MYFLY [id number] History of Present illness Narrative* MWV LAST COMPLETED 03/12/2020 * Health maintenance: * TDAP-- 06/2013 * Influenza-- 10/2019 * Shingrix-- completed per patient * Pneumonia series-- completed * Mammo-- graduated * PAP-- hysterectomy - graduated * Cscope(45-75)-- graduated * Last Dexa (65+)-- 02/2019 (osteoporosis /3; normal /3 areas) * Anxiety/Depression-- none found * PHQ-9: * ALYSSA-7: * Hepatitis C Screen-- none found * Lipid Panel-- ratio: 3.6 in 03/2020 * CT cardiac Score-- none found (CAD s/p CABG) * Patient presents today for health management of mood, back pain, CKD, HTN, HLD/CAD. * Would like ears checked today, feels hearing has decreased recently. No history of hearing problemsor hearing aids. * Does note one episode of chest heaviness, no associated diaphoresis, SOB. Has exerted herself several times since without any recurrence of cardiac symptoms. * Taking Wellbutrin 150 mg daily for mood. Patient is taking and tolerating the medications as prescribed. Patient denies suicidal ideation. Patient reports good control on the current medication. Patient denies any symptoms of mehul such as pressured speech, impulsive purchases. Patient is satisfiedwith their current regimen and wishes to continue. * PHQ-9 is 3 today. * ALYSSA-7 is 0 today. * Presently on Lasix 20 mg + Metoprolol 50 mg BID for hypertension. Also takes potassium 10 mg due tobeing on Lasix. Patient denies chest pain, shortness of breath with exertion, palpitations, lower extremity edema, headache, or dizziness. Medications are being taken and tolerated well. No side effects are reported. Patient is taking blood pressure outside of office and reports good control. * Takes Atorvastatin 10 mg daily for cholesterol + Isosorbide 60 mg and Plavix anticoagulation for CAD s/p CABG. * 03/2020 lipid panel favorable with ratio 3.6 * Medications are being taken as directed and tolerated well. Patient denies any facial droop, suddenvision loss, weakness or numbness on one side of body. Patient denies chest pain, shortness of breath with exertion, palpitations, or symptoms of claudication. * History of aortic stenosis and HFpEF * 03/2020 ECHO: LV systolic function is normal with EF 60-65%. Spectral Doppler shows an impaired relaxation pattern of left ventricular diastolic filling. The posterior leaflet of the mitral valve is thickened and redundant and has evidence of moderate prolapse. There is moderate laterally directed mitral regurgitation present. Moderate mitral valve regurgitation. Slightly elevated RVSP. * Due to follow-up with cardiology in 1 year with repeat ECHO at that time. * Osteoporosis and history vertebral fracture. Last DEXA done 02/2019 showed osteoporosis in 2/3 areaswith other being normal. We deferred any treatment [...] relief. Stable lumbar spine on CT done 11/2019. * Today, she reports back pain that is worse at end of day. Taking Tylenol and using lidocaine patches daily. Notes she is having issues with her hand as well. * Takes Gabapentin 300 mg up to TID as needed for back pain + Tizanidine 2 mg BID PRN for back spasms. She is taking Tizanidine daily, once in AM and once in PM. No sedation. * Patient recently saw GI for her bowel issues. Has been taking the Dicyclomine 3 times per day but can take up to 4. * 07/2020 GI EVAL (Dr. Justin Garcia): Based on [...] the past, then call my office at [phone] option 1 and we will pursue a special CT scan to look at the bloodvessels. Follow-up on an as needed basis. Trial of Dicyclomine in place of Hyoscyamine. [facility] Work Phone: 1(930) 343-406202-01-2021 History of Present illness Narrative* MWV LAST COMPLETED 03/12/2020 * Health maintenance: * TDAP-- 06/2013 * Influenza-- 10/2019 * Shingrix-- completed per patient * Pneumonia series-- completed * Mammo-- graduated * PAP-- hysterectomy - graduated * Cscope(45-75)-- graduated * Last Dexa (65+)-- 02/2019 (osteoporosis 2/3; normal 1/3 areas) * Anxiety/Depression-- none found * PHQ-9: * ALYSSA-7: * Hepatitis C Screen-- none found * Lipid Panel-- ratio: 3.6 in 03/2020 * CT cardiac Score-- none found (CAD s/p CABG) * Patient presents today for hospital follow-up. * She is here with son Ganga. * Patient lives in her apartment. * Patient hospitalized at [facility] 10/14-10/22/2020 with diagnosis of ischemic colitis, RADHA (improved), lactic acidosis (resolved), high procalcitonin in setting of RADHA (improved), acute on chronic macrocytic anemia, severe hypokalemia (resolved), hypomagnesemia (resolved). Patient initially presented withabdominal pain felt to be likely due to acute colitis and was found to be in lactic acidosis and RADHA. GI consulted and recommended stool studies and monitoring hemoglobin. Hgb remained stable and patient symptoms improved, no GI intervention required * Discharge instructions: Follow-up with established GI * Stop lidocaine cream, lidocaine patch, gabapentin, omeprazole (changed to Protonix), Lasix, potassium * Pertinent testing: * 10/22/2020 HGB 12.4 (normal), HCT 15.4, K+ 5.3 (H), Na 137 (normal). Creatinine 0.69, GFR >60. AST 49 (H) * 10/18/2020 Magnesium 2.1 (normal) * 10/17/2020 lactic acid 0.9 (normal 0.7-2.0), was 1.5 on 10/14 * 10/14/2020 Phosphorus 4.6 (H) (normal 2.5-4.5) * 10/14/2020 Blood cultures negative x 2, PCR stool panel negative, FIT positive for occult blood - no cscope per patient per GI note * 10/13/2020 CT A/P: Findings of colitis involving the transverse, descending, and proximal sigmoid colon. This could be infectious, inflammatory, or less likely ischemic in etiology. Recommend correlation with labs/history. Very large hiatal hernia containing the majority of the stomach and portions of the pancreas. Gastric antral wall thickening presenlty, correlate for possible gastritis, considerEGD. Borderal pancreatic duct dilation which may be due to chronic pancreatitis. * 10/24/2020 - POST DISCHARGE LABS: HGB 11.5, HCT 36.8. Normal WBC and PLTs. BMP with glucose 102, otherwise normal. * Today patient states she has little to no strength. Also endorses urinary frequency. States that [facility] took specimen about 2-3 days ago. Notes that she is going every 2-3 hours, has been pushing fluids. * States she only had 1 small bowel movement since yesterday, this is improved. Was given Bentyl for abdominal distress. Has 4 the day prior - these are small to medium. * Appetite is a little better, states she did not like food in hospital. * Also notes sleep is poor. No relief with Ativan in hospital and was unable to tolerate Trazodone. * Does want ears check, states she had wax buildup last time and hearing is decreased. * BP machine calibrated - NOT VALID * hers;127/75 * ours: 116/65 * hers 129/70 * CHRONIC ISSUES: * -Mood, presently on Wellbutrin 150 mg daily. * -HTN, presently on Lasix 20 mg + Metoprolol 50 mg BID. Also takes potassium 10 mg. * -HLD/CAD s/p CABG, taking Atorvastatin 10 mg + Isosorbide 60 mg + Plavix. 03/2020 TC/HDL ratio 3.6 * -History of and HFpEF. 03/2020 ECHO: EF 60-65%, Moderate MR. Slightly elevated RVSP. (cardio f/u + repeat ECHO due in 1 year. * -Osteoporosis and history vertebral fracture. 02/2019 DEXA osteoporosis 2/3, normal 1/3. Fosamax resumed 09/2020. * -Back pain, taking Gabapentin 300 mg up to TID + Tizanidine 2 mg BID PRN for back spasms. * Patient recently saw GI for her bowel issues. Has been taking the Dicyclomine 3 times per day but can take up to 4. * 07/2020 GI EVAL (Dr. Justin Garcia): Based on [...] the past, then call my office at [phone] option 1 and we will pursue a special CT scan to look at the bloodvessels. Follow-up on an as needed basis. Trial of Dicyclomine in place of Hyoscyamine. [facility] Work Phone: 1(804) 491-195102-01-2021 History of Present illness Narrative* MWV LAST COMPLETED 03/12/2020 * Health maintenance: * TDAP-- 06/2013 * Influenza-- 10/2019 * Shingrix-- completed per patient * Pneumonia series-- completed * Mammo-- graduated * PAP-- hysterectomy - graduated * Cscope(45-75)-- graduated * Last Dexa (65+)-- 02/2019 (osteoporosis 2/3; normal 1/3 areas) * Anxiety/Depression-- none found * PHQ-9: * ALYSSA-7: * Hepatitis C Screen-- none found * Lipid Panel-- ratio: 3.6 in 03/2020 * CT cardiac Score-- none found (CAD s/p CABG) * Patient presents today for hospital follow-up. * She is here with son Ganga. * Patient lives in her apartment. * Patient hospitalized at [facility] 10/14-10/22/2020 with diagnosis of ischemic colitis, RADHA (improved), lactic acidosis (resolved), high procalcitonin in setting of RADHA (improved), acute on chronic macrocytic anemia, severe hypokalemia (resolved), hypomagnesemia (resolved). Patient initially presented withabdominal pain felt to be likely due to acute colitis and was found to be in lactic acidosis and RADHA. GI consulted and recommended stool studies and monitoring hemoglobin. Hgb remained stable and patient symptoms improved, no GI intervention required * Discharge instructions: Follow-up with established GI * Stop lidocaine cream, lidocaine patch, gabapentin, omeprazole (changed to Protonix), Lasix, potassium * Pertinent testing: * 10/22/2020 HGB 12.4 (normal), HCT 15.4, K+ 5.3 (H), Na 137 (normal). Creatinine 0.69, GFR >60. AST 49 (H) * 10/18/2020 Magnesium 2.1 (normal) * 10/17/2020 lactic acid 0.9 (normal 0.7-2.0), was 1.5 on 10/14 * 10/14/2020 Phosphorus 4.6 (H) (normal 2.5-4.5) * 10/14/2020 Blood cultures negative x 2, PCR stool panel negative, FIT positive for occult blood - no cscope per patient per GI note * 10/13/2020 CT A/P: Findings of colitis involving the transverse, descending, and proximal sigmoid colon. This could be infectious, inflammatory, or less likely ischemic in etiology. Recommend correlation with labs/history. Very large hiatal hernia containing the majority of the stomach and portions of the pancreas. Gastric antral wall thickening presenlty, correlate for possible gastritis, considerEGD. Borderal pancreatic duct dilation which may be due to chronic pancreatitis. * 10/24/2020 - POST DISCHARGE LABS: HGB 11.5, HCT 36.8. Normal WBC and PLTs. BMP with glucose 102, otherwise normal. * Today patient states she has little to no strength. Also endorses urinary frequency. States that [facility] took specimen about 2-3 days ago. Notes that she is going every 2-3 hours, has been pushing fluids. * States she only had 1 small bowel movement since yesterday, this is improved. Was given Bentyl for abdominal distress. Has 4 the day prior - these are small to medium. * Appetite is a little better, states she did not like food in hospital. * Also notes sleep is poor. No relief with Ativan in hospital and was unable to tolerate Trazodone. * Does want ears check, states she had wax buildup last time and hearing is decreased. * BP machine calibrated - NOT VALID * hers;127/75 * ours: 116/65 * hers 129/70 * CHRONIC ISSUES: * -Mood, presently on Wellbutrin 150 mg daily. * -HTN, presently on Lasix 20 mg + Metoprolol 50 mg BID. Also takes potassium 10 mg. * -HLD/CAD s/p CABG, taking Atorvastatin 10 mg + Isosorbide 60 mg + Plavix. 03/2020 TC/HDL ratio 3.6 * -History of and HFpEF. 03/2020 ECHO: EF 60-65%, Moderate MR. Slightly elevated RVSP. (cardio f/u + repeat ECHO due in 1 year. * -Osteoporosis and history vertebral fracture. 02/2019 DEXA osteoporosis 03/14, normal 02/11. Fosamax resumed 09/2020. * -Back pain, taking Gabapentin 300 mg up to TID + Tizanidine 2 mg BID PRN for back spasms. * Patient recently saw GI for her bowel issues. Has been taking the Dicyclomine 3 times per day but can take up to 4. * 07/2020 GI EVAL (Dr. Justin Garcia): Based on [...] the past, then call my office at [phone] option 1 and we will pursue a special CT scan to look at the bloodvessels. Follow-up on an as needed basis. Trial of Dicyclomine in place of Hyoscyamine. [facility] Work Phone: 1(228) 606-937802-01-2021 History of Present illness Narrative* MWV LAST COMPLETED 03/12/2020 * Health maintenance: * TDAP-- 06/2013 * COVID-- completed + booster 12/2020 * Influenza-- 10/2019 * Shingrix-- completed 04/2020 per patient * Pneumonia series-- completed * Mammo-- graduated * PAP-- hysterectomy - graduated * Cscope(45-75)-- graduated * Last Dexa (65+)-- 02/2019 (osteoporosis 2/3; normal 1/3 areas) * Anxiety/Depression-- 09/2020 * PHQ-9: 3 * ALYSSA-7: 0 * Hepatitis C Screen-- none found * Lipid Panel-- ratio: 3.6 in 03/2020 * CT cardiac score-- none found (CAD s/p CABG) * ECHO-- 03/2020 HFpEF 60-65%. Mod MR. Posterior leaflet mitral valve is thickened/redundant, evidenceof moderate prolapse. Slightly elevated RVSP. * Patient presents today for recheck anemia, mood, sleep, weight, and HTN. * * pt states she is feeling better * pt brought her bp machine * in the morning her bp is all over the place * may vary a lot with sodium intake in frozen dinners, but they do not add salt to anything. * appetite fairly good, eating ok, weight stable * checked pts home bp leonarda * is valid * advised pt to tighten cuff more since she has small arms - she will look for a smaller cuff * pt machine 132/59 * our machine 128/71 * Received flu shot today * Patient answered all questions prior to immunization * 1: Have you ever had Gu[place] syndrome? (a viral illness resulting in neurological symptoms, including paralysis) (Yes/No): NO * 2: Have you received a shingles(Zoster), MMR, chickenpox (varicella), or any other live vaccines inthe past 4 weeks? (Yes/No): NO * 3. Have you ever had an anaphylactic reaction to prior flu vaccines? (Yes/No): NO * Patient was provided a copy of the current Influenza Vaccine Information Sheet * * Hypertension, BP was 96/62 in office at 10/2020 OV. In light of history of colitis, would recommend decreasing Metoprolol from 50 ot 25 mg twice daily. BP cuff was NOT valid today (10/2020), patient toget a new one for home monitoring. Presently on Lasix 20 mg + Metoprolol 25 mg BID. Also takes potas sium 10 mg. * Started on Mirtazapine 7.5 mg daily for insomnia, and low weight. * Presently on Wellbutrin 150 mg daily for mood. * Anemia, mild, HGB 11.5 in 10/2020 * CHRONIC ISSUES: * -HLD/CAD s/p CABG, taking Atorvastatin 10 mg + Isosorbide 60 mg + Plavix. 03/2020 TC/HDL ratio 3.6 * -History of and HFpEF. 03/2020 ECHO: EF 60-65%, Moderate MR. Slightly elevated RVSP. (cardio f/u + repeat ECHO due in 1 year. * -Osteoporosis and history vertebral fracture. 02/2019 DEXA osteoporosis 03/14, normal 02/11. Fosamax resumed 09/2020. * -Back pain, taking Gabapentin 300 mg up to TID + Tizanidine 2 mg BID PRN for back spasms. * Patient recently saw GI for her bowel issues. Has been taking the Dicyclomine 3 times per day but can take up to 4. * 07/2020 GI EVAL (Dr. Justin Garcia): Based on [...] the past, then call my office at [phone] option 1 and we will pursue a special CT scan to look at the bloodvessels. Follow-up on an as needed basis. Trial of Dicyclomine in place of Hyoscyamine. * needs help with cleaning, is cooking but is hard for her * does not have meals on wheels * has heard of [employer], has not recently * awaiting medical technologist through home care, has nursing. nursing told her social work was ordered, just watiting * no falls * does use frozen dinners for dinner * usually make breakfast and lunch, nothing elaborate (sandwiches,d fruit veggies) * is having a bit of diarrhea sometimes dark but is on iron [facility] Work Phone: [phone]) 526-139505-01-2014 History of Present illness Narrative* Health maintenance: * TDAP-- 06/2013 * COVID-- 04/2020 + booster 12/2020 & 05/2021 * Influenza-- due fall * Shingrix-- completed per patient * Pneumonia series-- completed * Mammo-- graduated * PAP-- hysterectomy - graduated * Cscope(45-75)-- graduated * Last Dexa (65+)-- 02/2019 (osteoporosis 2/3; normal 1/3 areas) - DUE * Anxiety/Depression-- 09/2020 * PHQ-9: 3 * ALYSSA-7: 0 * Hepatitis C Screen-- none found * Lipid Panel-- ratio: 2.9 in 03/2021 * CT cardiac score-- none found (CAD s/p CABG) * ECHO-- 03/2021 (LV EF 65-70%, impaired LV diastolic function, thickening and prolapse of the posterior MV leaflet with moderate laterally directed MR, moderate MR, slightly elevated RVSP, aortic valvesclerosis. * Patient presents today for evaluation of multiple issues. * #1 BLE edema, ogoing for some time now. * Has not been wearing compression stockings. * No SOB, no CP, no palpitations. * #2 Concern for potassium levels * #3 Abdominal cramping, prescribed Bentyl by GI about 1 year ago. * Has been taking this 4 times per day since having flare. * Thinks having cramping due to spasms. * Cut down to 3 times per day since seemed to be improving but also needed to stretch prescription. * Wants refill on medication today. * #4 Not sleeping well. * Cat wakes up her nightly for attention, this is main reason for waking. * Sometimes insomnia due to pain. * Tried melatonin, ineffective * Tried Lunesta, ineffective * Tried Trazodone, had adverse effects with this. * Tried Ambien, worked fair. * Currently taking 15 mg Mirtazapine * Did notice some improvement with sleep when starting this. She is also experiencing dry mouth but on multiple medications that can cause this. * #5 Still having back discomfort, does keep up at night sometimes. * She is taking a muscle relaxant, Gabapentin, and Tylenol before bed * CHRONIC CONDITIONS: * -Anemia, mild but chronic with patient's baseline HGB in 11-12s. * 03/2021 HGB 11.8 * -Mood, taking Wellbutrin 150 mg daily. * -Insomnia + low weight, taking Mirtazapine 15 mg at bedtime. * -HTN, taking Doxazosin 1 mg + Metoprolol 25 mg BID * Also taking Lasix daily. * -HLD/CAD s/p CABG, taking Atorvastatin 10 mg + Isosorbide 60 mg + Plavix. * 03/2021 lipid panel favorable with TC/HDL ratio 2.9 * -History of and HFpEF. 03/2020 ECHO: EF 60-65%, Moderate MR. Slightly elevated RVSP. (cardio f/u + repeat ECHO due in 1 year. * -Osteoporosis and history vertebral fracture. * 02/2019 DEXA osteoporosis 2/3, normal 02/11. * -Back pain, taking Gabapentin 300 mg up to TID + Tizanidine 2 mg BID PRN for back spasms. [facility] Work Phone: chief complaint Narrative - Reportedevaluation of multiple issues.-[facility] Work Phone: consult note Author Thanh Mclaughlin [facility] Note Date/Time July 25, 2024 5:10 pm [facility] Medical Records Department [address] [place] [address] Consultation 07/25/24 1706 MR#: [id number] Acct: [id number] Name: KATHERINE JUDGE Wilber Rep #:[id number] : 1935 89 From: Thanh Mclaughlin DO [...] years ago with Dr. Malcom Herron in [facility]. She is on Plavix [facility] Medical History (Updated 07/25/24 @ 17:08 by [...] her son who is her power of thermoscrew operator Appearance: cooperative Extremity Extremity Narrative: Exquisitely positive [...] % (Auto) 69.2, Lymph % (Auto) 22.9, [place] % (Auto) 6.2, Eos % (Auto) 0.9, [...] of the proximal right femur. Reading Location: [facility] Chest X-Ray 07/25/24 15:15 IMPRESSION: Cardiomegaly and vascular congestion with atelectasis at the lung bases. Reading Location: [facility] 07/25/24 1710 <Electronically signed by Thanh Mclaughlin DO> Cosigner Signature (if applicable): CC: Dr. Kam Ocampo Sr., DO~ Signed [facility] Work Phone: Discharge summary Author Neymar Cunningham [facility] November 02, 2022 12:11pm Note Date/Time November 02, 2022 11:56am [facility] Medical Records Department [address] [place] [address] Transfer to [facility] MR#: [id number] Acct: [id number] Name: KATHERINE JUDGE Rep #:[id number] : 1935 87 From: Neymar Herrera PCP: Dr. Kam Ocampo Sr., DO Status:A DM IN Certification of patient admission REQUIRED AT TIME OF ADMISSION. I CERTIFY THAT POST-HOSPITAL ECF SERVICES ARE REQUIRED TO BE GIVEN ON AN IN-PATIENT BASIS BECAUSE OF THE ABOVE NAMED PATIENT'S NEED FOR USP CARE ON A CONTINUING BASIS FOR THE CONDITION(S) FOR WHICH HE/SHE WAS RECEIVING IN-PATIENT HOSPITAL SERVICES PRIOR TO HIS/HER TRANSFER TO THE F. 11/02/22 1211<Electronically signed by Neymar Cunningham MD> Diet Diet Order/Speech Therapy: 10/31/22 08:14 Diet: Regular - General Is pt able to select menu?: Yes Diet Comments: Okay for p.o. meds, okay for ice chips Routine Orders/Code Status Suppository Type: Dulcolax 10mg Suppository Frequency: Daily PRN Wound(s) Mid Back: Wound Type: Pressure Injury Therapies Weight Bearing: Weight bearing as tolerated Extremity Affected:: Bilateral Lower Physical Therapy: Eval and Treat Occupational Therapy: Eval and Treat Speech Therapy: Eval and Treat Problem/Diagnosis (1) Acute CVA (cerebrovascular accident): Status: Acute Code(s): I63.9 - Cerebral infarction, unspecified Plan Patient is an 87-year-old female with history of chronic debility, TIA, CAD, hypertension and depression who presented to [facility] ED from detention on 10/30/2022 for expressive aphasia and dysarthria. 1. Acute CVA most likely TIA status post tenecteplase: Patient is admitted in ICU after tenecteplase given in ED. CT brain without contrast showed an area of low-attenuation in the left parietal lobe consistent with age-indeterminate ischemia, perhaps acute. CTA head/neck was negative for any acute pathology. Evaluated by [facility] teleneurology in ED, NIH score of 6. PT, OT, speech therapy/swallow evaluation and management, nursing NIH stroke scale, BP and glucose monitoring and control as per stroke protocol. TSH, A1c fasting lipid profile tomorrow AM. MRI brain and2D echo with bubble contrast study ordered Continue home statin. 11/01: Echo reported as no Doppler evidence of ASD; bubble contrast study negative for [id number] interatrial shunt. LA severely enlarged. EF 70%. MRI brain reports no acute or subacute ischemic infarct or acute intracranial abnormality. SOC consult ordered 2. Chronic debility Patient's family notes that she was recently hospitalized at an outside hospitalfor medical concerns unrelated to current concern for acute CVA. She was discharged to a half-way facility, with plans for long-term placement in a detention after that. Has been residing at the [facility], and family has been happy with this arrangement. ? PT/OT/case management consulted. Fall precautions in place. Chronic medical conditions: ? Hypertension, history of CAD: Continue home metoprolol, isosorbide mononitrate, Lasix, potassium supplement, doxazosin. ? Depression: Continue home bupropion, mirtazapine at night. DVT prophylaxis: SCDs CODE STATUS: DNR CCA, DO NOT INTUBATE Expected disposition: Long-term care facility Allergies/Procedures Done in Hospital Allergies cephalexin Allergy (Verified 10/30/22 20:19) NEEDS FOLLOW-UP clarithromycin Allergy (Verified 10/30/22 20:19) NEEDS FOLLOW-UP clindamycin Allergy (Verified 10/30/22 20:19) NEEDS FOLLOW-UP doxazosin Allergy (Verified 10/30/22 20:19) NEEDS FOLLOW-UP erythromycin base Allergy (Verified 10/30/22 20:19) NEEDS FOLLOW-UP eszopiclone Allergy (Verified 10/30/22 20:19) NEEDS FOLLOW-UP Fish Containing Products Allergy (Verified 10/30/22 20:19) NEEDS FOLLOW-UP fish derived Allergy (Verified 10/30/22 20:19) NEEDS FOLLOW-UP lincomycin Allergy (Verified 10/30/22 20:19) NEEDS FOLLOW-UP lorazepam Allergy (Verified 10/30/22 20:19) NEEDS FOLLOW-UP NSAIDS (Non-Steroidal Anti-Inflamma Allergy (Verified 10/30/22 20:19) NEEDS FOLLOW-UP Penicillins Allergy (Verified 10/30/22 20:19) NEEDS FOLLOW-UP rofecoxib Allergy (Verified 10/30/22 20:19) NEEDS FOLLOW-UP salicylates Allergy (Verified 10/30/22 20:19) NEEDS FOLLOW-UP temazepam Allergy (Verified 10/30/22 20:19) NEEDS FOLLOW-UP Tetracyclines Allergy (Verified 10/30/22 20:19) NEEDS FOLLOW-UP trazodone Allergy (Verified 10/30/22 20:19) NEEDS FOLLOW-UP Type of Care/Length of Stay Estimated LOS: Convalescent Care Less Than 30 days Type of Care Needed: Skilled Rehab Potential: Good Prognosis: Good Additional Orders/Day of Discharge Day of Discharge: 11/02/22 Dietary and Speech Recommendations Dietitian Recommendations/Changes: continue regular diet as tolerated w/ texture/consistency modifications per INSEAM TRIMMING MACHINE OPERATOR as indicated; will monitor PO intake as established and provide ONS if indicated Discharge Plan Admission Admit Date/Time: 10/30/22 21:21 Primary Reason for Your Visit: TIA/possible acute stroke. Attending Provider: Neymar Cunningham Primary Care Provider: Terrence Addison,Kam Consulting Providers: Hayden Diaz; Mu Grossman; Ajay Nieves; Dayron Workman; Lucio Brown; Alen Burgess; Melania Perez STONE PLANER Discharge Orders/Prescriptions Prescriptions: New atorvastatin 40 mg Tablet 40 mg PO QHS 20 Days Qty: 30 2RF Continued Ensure Liquid 8 ml PO DAILY bupropion HCl 150 mg tablet extended release 24 hr 150 mg PO DAILY calcium carbonate [Calcium 500] 500 mg calcium (1,250 mg) tablet,chewable 500 mg PO DAILY All Day Allergy (cetirizine) 10 mg capsule 10 mg PO DAILY clopidogrel 75 mg tablet 75 mg PO .thu doxazosin [Cardura] 2 mg tablet 2 mg PO DAILY Fiber Gummies 2 gram tablet,chewable 1 g PO DAILY fluticasone propionate [24 Hour Allergy Relief] 50 mcg/actuation spray,suspension 1 spray intranasal DAILY Rx Instructions: administer into each nostril isosorbide mononitrate 30 mg tablet extended release 24 hr 30 mg PO DAILY furosemide [Lasix] 20 mg tablet 20 mg PO DAILY mirtazapine 30 mg tablet 30 mg PO QHS montelukast 10 mg tablet 10 mg PO QHS multivitamin [Daily Multi-Vitamin] Tablet 1 tab PO DAILY pantoprazole 40 mg tablet,delayed release (DR/EC) 40 mg PO DAILY potassium chloride [K-Tab] 20 mEq tablet extended release 20 meq PO DAILY Ultimate Harrison Probiotic 30 billion cell capsule,delayed release(DR/EC) 1 cap PO DAILY azelastine 137 mcg (0.1 %) aerosol,spray 1 spray intranasal BID Rx Instructions: administer into each nostril gabapentin 600 mg tablet 600 mg PO BID metoprolol tartrate 25 mg tablet 25 mg PO BID acetaminophen [Tylenol] 325 mg capsule 500 mg PO BID guaifenesin [Chest Congestion Relief] 100 mg/5 mL liquid 200 mg PO Q8 dicyclomine 10 mg capsule 10 mg PO Q6H Discontinued atorvastatin 10 mg tablet 10 mg PO QHS Referrals / Follow Up: Terrence Addison,Kam, [Primary Care Provider] - Eh Ma MD [Non-Staff -Ordering Privileges] - Within 1 Month Disposition Disposition (needs filled in before D/C Order can be placed): Group Home Facility 11/02/22 1211 <Electronically signed by Neymar Cunningham MD> Cosigner Signature (if applicable): CC: EDWARDO Perez; Dr. Hayden Diaz DO; Dr. Mu Grossman MD; Dr. Kam Ocampo Sr., ; Dr. Ajay Nieves DO; Dr. Dayron Workman MD; Dr. Lucio Brown MD; Dr. Alen Burgess MD ~ [facility] Work Phone: Discharge summary Author Neymar Cunningham [facility] November 02, 2022 12:44pm Note Date/Time November 02, 2022 11:58am [facility] Medical Records Department [address] [place] [id number] Discharge Summary 11/02/22 1157 MR#: [id number] Acct: [id number] Name: KATHERINE JUDGE Rep #:[id number] : 1935 87 From: Neymar Herrera PCP: Dr. Kam Ocampo Sr., DO Status:A DM IN Location: ICU CVICU20 3-1 Providers Date of Admission: 10/30/22 Date of Discharge: 11/02/22 Primary Care Physician: Dr. Kam Ocampo Sr., DO Consultations 10/30/22 20:14 Consult: Mold Repairer / Pulmonary Medicine Routine Consulting Provider: [facility] Reason for Consult: stroke for thrombolytic administration EMERGENT Consult: No MD Notified: Yes Date Notified: 10/30/22 Time Notified: 20:14 Method of Notification: Text Comments:: Consult may be done in ED or ICU Reason For Visit: ACUTE CVA Diagnosis Discharge Diagnosis (1) Acute CVA (cerebrovascular accident): Status: Acute Code(s): I63.9 - Cerebral infarction, unspecified Plan Patient is an 87-year-old female with history of chronic debility, TIA, CAD, hypertension and depression who presented to [facility] ED from detention on 10/30/2022 for expressive aphasia and dysarthria. 1. Acute CVA: Patient is admitted in ICU after tenecteplase given in ED. CT brain without contrast showed an area of low-attenuation in the left parietal lobe consistent with age-indeterminate ischemia, perhaps acute. CTA head/neck was negative for any acute pathology. Evaluated by [facility] teleneurology in ED, NIH score of 6. PT, OT, speech therapy/swallow evaluation and management, nursing NIH stroke scale, BP and glucose monitoring and control as per stroke protocol. MRI brain and 2D echo with bubble contrast study ordered Continue home statin. 11/01: Echo reported as no Doppler evidence of ASD; bubble contrast study negative for [id number] interatrial shunt. LA severely enlarged. EF 70%. MRI brain reports no acute or subacute ischemic infarct or acute intracranial abnormality. SOC consult was ordered 11/02: Patient was seen by SOC consult and high intensity statin to continue. Fasting profile shows LDL 47, HDL 33. A1c 5.5%. 2. Chronic debility Patient's family notes that she was recently hospitalized at an outside hospitalfor medical concerns unrelated to current concern for acute CVA. She was discharged to a half-way facility, with plans for long-term placement in a detention after that. Has been residing at the [facility], and family has been happy with this arrangement. ? PT/OT/case management consulted. Fall precautions in place. Chronic medical conditions: ? Hypertension, history of CAD: Continue home metoprolol, isosorbide mononitrate, Lasix, potassium supplement, doxazosin. ? Depression: Continue home bupropion, mirtazapine at night. DVT prophylaxis: SCDs CODE STATUS: DNR CCA, DO NOT INTUBATE Expected disposition: Long-term care facility Medications at Discharge Home Medications Lactobacillus-Bifidobacterium 30 billion cell capsule,delayed release (Ultimate Harrison Probiotic) 1 cap PO DAILY 10/30/22 acetaminophen 325 mg capsule (Tylenol) 500 mg PO BID 10/30/22 azelastine 137 mcg (0.1 %) nasal spray aerosol 1 spray intranasal BID 10/30/22 bupropion HCl 150 mg 24 hr tablet, extended release 150 mg PO DAILY 10/30/22 calcium carbonate 500 mg calcium (1,250 mg) chewable tablet (Calcium 500) 500 mgPO DAILY 10/30/22 cetirizine 10 mg capsule (All Day Allergy (cetirizine)) 10 mg PO DAILY 10/30/22 clopidogrel 75 mg tablet 75 mg PO .thu10/30/22 dicyclomine 10 mg capsule 10 mg PO Q6H 10/30/22 doxazosin 2 mg tablet (Cardura) 2 mg PO DAILY 10/30/22 fluticasone propionate 50 mcg/actuation nasal spray,suspension (24 Hour Allergy Relief) 1 spray intranasal DAILY 10/30/22 food supplemt, lactose-reduced (Ensure oral liquid) 8 ml PO DAILY 10/30/22 furosemide 20 mg tablet (Lasix) 20 mg PO DAILY 10/30/22 gabapentin 600 mg tablet 600 mg PO BID 10/30/22 guaifenesin 100 mg/5 mL oral liquid (Chest Congestion Relief) 200 mg PO Q8 10/30/22 inulin 2 gram chewable tablet (Fiber Gummies) 1 g PO DAILY 10/30/22 isosorbide mononitrate 30 mg tablet,extended release 24 hr 30 mg PO DAILY 10/30/22 metoprolol tartrate 25 mg tablet 25 mg PO BID 10/30/22 mirtazapine 30 mg tablet 30 mg PO QHS 10/30/22 montelukast 10 mg tablet 10 mg PO QHS 10/30/22 multivitamin (Daily Multi-Vitamin tablet) 1 tab PO DAILY 10/30/22 pantoprazole 40 mg tablet,delayed release 40 mg PO DAILY 10/30/22 potassium chloride 20 mEq tablet,extended release (K-Tab) 20 meq PO DAILY 10/30/22 atorvastatin 40 mg tablet 40 mg PO QHS 20 days #30 tabs 11/02/22 Physical Exam Narrative Seen and examined. Her main symptoms was language deficit including unable to understand and verbalize and dysarthria has much improved. Resolved. Patient can understand and speak in full sentences. Speech makes sense. Seen by associated suspicion. Physical exam General: Alert, oriented to daylight. Comprehensibility and communication limited. Cooperative HEENT: Atraumatic, PERRLA, EOMI, Normocephalic Oral: No Gingival or Mucosal Lesions/ Ulcerations Neck: Supple, No JVD, Negative Carotid Bruits Lungs: Air entry diminished in bilateral lung bases. No crepitation/rhonchi Cardiovascular: Regular rate, Regular Rhythm, Normal S1, Normal S2, No murmurs Abdomen: Bowel Sounds Present, Soft, Non Tender, Non-Distended : No renal angle tenderness. No suprapubic tenderness. Extremities: No edema, Capillary Refill Less than 3 Seconds Skin: No rashes, No breakdown Musculoskeletal: No Tenderness to Palpation of Joints or Extremities Neurological: Cranial nerves II-XII grossly intact, DTR 2+/4. NIH 0. Normal symmetrical facial movement. Muscle strength, no drift upper or lower extremity. Language deficit and dysarthria resolved. Psychiatric: Weight / BMI Weight Weight: 107 lb 9.6 oz Body Mass Index (BMI) 21.1 ABG / Lab / Microbiology Data 10/31/22 03:45 10/31/22 03:45 Radiography Diagnostic Testing: Radiology Impression Brain MRI 11/01/22 06:00 IMPRESSION: 1. No MRI evidence of acute or subacute ischemic infarct or acute intracranial abnormality. 2. Multiple chronic white matter ischemic changes in both cerebral hemispheres. Electronically Signed: Juvenal Guillen MD at 14:05 EDT , Meaningful Use Info Meaningful Use Diagnoses (Choose all that apply): None applicable Discharge Plan Admission Admit Date/Time: 10/30/22 21:21 Primary Reason for Your Visit: TIA/possible acute stroke. Attending Provider: Neymar Cunningham Primary Care Provider: Terrence Addison,Kam Consulting Providers: Hayden Diaz; Mu Grossman; Ajay Nieves; Dayron Workman; Lucio Brown; Alen Burgess; Melania Perez STONE PLANER Instructions Additional Instructions / Restrictions: Fasting TSH as an outpatient. Discharge Orders/Prescriptions Prescriptions: New atorvastatin 40 mg Tablet 40 mg PO QHS 20 Days Qty: 30 2RF Continued Ensure Liquid 8 ml PO DAILY bupropion HCl 150 mg tablet extended release 24 hr 150 mg PO DAILY calcium carbonate [Calcium 500] 500 mg calcium (1,250 mg) tablet,chewable 500 mg PO DAILY All Day Allergy (cetirizine) 10 mg capsule 10 mg PO DAILY clopidogrel 75 mg tablet 75 mg PO .thu doxazosin [Cardura] 2 mg tablet 2 mg PO DAILY Fiber Gummies 2 gram tablet,chewable 1 g PO DAILY fluticasone propionate [24 Hour Allergy Relief] 50 mcg/actuation spray,suspension 1 spray intranasal DAILY Rx Instructions: administer into each nostril isosorbide mononitrate 30 mg tablet extended release 24 hr 30 mg PO DAILY furosemide [Lasix] 20 mg tablet 20 mg PO DAILY mirtazapine 30 mg tablet 30 mg PO QHS montelukast 10 mg tablet 10 mg PO QHS multivitamin [Daily Multi-Vitamin] Tablet 1 tab PO DAILY pantoprazole 40 mg tablet,delayed release (DR/EC) 40 mg PO DAILY potassium chloride [K-Tab] 20 mEq tablet extended release 20 meq PO DAILY Ultimate Harrison Probiotic 30 billion cell capsule,delayed release(DR/EC) 1 cap PO DAILY azelastine 137 mcg (0.1 %) aerosol,spray 1 spray intranasal BID Rx Instructions: administer into each nostril gabapentin 600 mg tablet 600 mg PO BID metoprolol tartrate 25 mg tablet 25 mg PO BID acetaminophen [Tylenol] 325 mg capsule 500 mg PO BID guaifenesin [Chest Congestion Relief] 100 mg/5 mL liquid 200 mg PO Q8 dicyclomine 10 mg capsule 10 mg PO Q6H Discontinued atorvastatin 10 mg tablet 10 mg PO QHS Referrals / Follow Up: Kam Ocampo Sr., DO [Primary Care Provider] - Eh Ma MD [Non-Staff -Ordering Privileges] - Within 1 Month Disposition Disposition (needs filled in before D/C Order can be placed): Group Home Facility 11/02/22 1244 <Electronically signed by Neymar Cunningham MD> Cosigner Signature (if applicable): CC: Dr. Kam Ocampo Sr., ; Dr. Neymar Cunningham MD~ Signed [facility] Work Phone: Evaluation note* Diagnosis Hypoxia- Primary Hypoxemia Coronary artery disease without angina pectoris, unspecified vessel or lesion type, unspecified whether nooksack or transplanted heart Benign essential hypertension Essential hypertension, benign Pneumonia of right lung due to infectious organism, unspecified part of lung documented in this encounter [facility] Work Phone: Evaluation note* Diagnosis Hypoxia Hypoxemia Benign essential hypertension Essential hypertension, benign Pneumonia of right lung due to infectious organism, unspecified part of lung Abdominal pain, unspecified abdominal location documented in this encounter [facility] Work Phone: Evaluation note* Diagnosis Hypoxia Hypoxemia Pneumonia of right lower lobe due to infectious organism Abdominal pain, unspecified abdominal location documented in this encounter [facility] Work Phone: Evaluation note* Diagnosis Benign essential hypertension- Primary Essential hypertension, benign Osteoporosis, unspecified osteoporosis type, unspecified pathological fracture presence Coronary artery disease without angina pectoris, unspecified vessel or lesion type, unspecified whether nooksack or transplanted heart Stage 3a chronic kidney disease (CMS/HCC) Hypercholesterolemia Pure hypercholesterolemia Allergic rhinitis, unspecified seasonality, unspecified trigger Multiple allergies Lower abdominal pain Abdominal pain, other specified site Anemia in other chronic diseases classified elsewhere documented in this encounter [facility] Work Phone: Evaluation note* Diagnosis 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 Abdominal pain, generalized Constipation, unspecified constipation type [facility] Diagnosis Onset Date Resolution Status Acute CVA (cerebrovascular accident) acute History of CAD (coronary artery disease) acute Hypertension chronic [facility] Work Phone: Evaluation note* Diagnosis Onset Date Resolution Status History of CAD (coronary artery disease) acute Acute CVA (cerebrovascular accident) resolved [facility] Work Phone: Evaluation noteNo assessment information available [facility] Work Phone: Evaluation note* Diagnosis Healthcare maintenance- Primary Osteoporosis, unspecified osteoporosis type, unspecified pathological fracture presence Screening for osteoporosis Special screening for osteoporosis Postmenopausal estrogen deficiency Benign essential hypertension Essential hypertension, benign Coronary artery disease without angina pectoris, unspecified vessel or lesion type, unspecified whether nooksack or transplanted heart Gastroesophageal reflux disease, unspecified [...] health care facility documented in this encounter [facility] Work Phone: Evaluation note* Diagnosis Onset Date Resolution Status Admit Date Closed intertrochanteric fra cture of right hip acute July 25, 2024 4:51pm Elevated blood pressure reading acut e July 25, 2024 4:51pm Fall acute July 25 4:51pm [facility] Work Phone: History of Present illness Narrative* [...] * SocHx: Denies smoking, alcohol, or illicits [employer] Work Phone: History of Present illness Narrative* [...] * SocHx: Denies smoking, alcohol, or illicits [facility]: History of Present illness [...] ischemic colitis, other segmental colonic biopsies normal). 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 She denies any complaints of chest pain, shortness of breath, palpitations, lower extremity edema, di zziness or syncopal episodes. She reports elevated home BP readings. Today, her BP is 144/74. Her weight is up 5 lbs since December.[facility] Work Phone: Hiswgli of Present illness Narrative* The patient is [...] Home Maintenance: needs assistance. * Falls Risk Screening:. 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 No sedation. [facility] Work Phone: History of Present illness NarrativeMrs Nu is an 87 year old female with anemia, mitral regurg, rheumatic fever as a child, hypothyroidism, hypertension, hyperlipidemia, CA,m CAD, CABG and then an angioplasty after [...] to her right cheek, but denies any trauma.[facility] [place] Work Phone: History of Present illness NarrativeMrs Judge is an 87 year old female with anemia, mitral regurg, rheumatic fever as a child, hypothyroidism, hypertension, hyperlipidemia, CA,m CAD, CABG and then an angioplasty after CABG, carotid artery disease, CVA, CKD, chronic colitis, osteoporosis, insomnia and peripheral neuropathy, here more acute visit for a syncopal event. She reports that she was admitted to the hospital for pneumonia with respiratory failure for 7 days. She is now under going rehab in [facility] and is now on continuous O2. She reports that after urinating, she had a syncopal episode. She is unsurewhat caused this syncopal episode. She denies any complaints of chest pain, lower extremity edema or weight gain. She does complain of shortness of breath and weight loss since her hospitalization. [facility] [address] [place] Work Phone: History of Present illness NarrativeMrs Judge is an 87 year old female with anemia, mitral regurg, rheumatic fever as a child, hypothyroidism, hypertension, hyperlipidemia, CA,m CAD, CABG and then an angioplasty after [...] to her right cheek, but denies any trauma.[facility] Work Phone: Rehbvr for referral (narrative)* Consultation (Routine) - Authorized Specialty Diagnoses / Procedures Referred By Contac t Referred To Contact Primary Care Diagnoses Hypoxia Benign essential hypertension Procedures Follow Up In Advanced Primary Care - PCP Christ Gardiner DO [address] [facility], [address] [place] [address] Referral ID Status Reason Start Date Expiration Date V isits Requested Visits Authorized [id number] Authorized 06/01/2022 11/28/2022 1 1 * Imaging (Routine) - Authorized Specialty Diagnoses / Procedures Referred By Contac t Referred To Contact Radiology Diagnoses Hypoxia Procedures XR chest 2 views Christ Gardiner DO [address] [facility], [facility] [address] [place] [address] Referral ID Status Reason Start Date Expiration Date Visits Requested Visits Authorized [id number] Authorized Perform Procedure 05/30/2022 11/26/2022 1 1 [facility] Work Phone: Rebtpi for referral (narrative)* Consultation (Routine) - Authorized Specialty Diagnoses / Procedures Referred By Contac t Referred To Contact Primary Care Diagnoses Hypoxia Pneumonia of right lower lobe due to infectious organism Abdominal pain, unspecified abdominal location Procedures Follow Up In Advanced Primary Care - PCP Christ Gardiner DO [address] [facility], [address] [place] [address] Referral ID Status Reason Start Date Expiration Date V isits Requested Visits Authorized [id number] Authorized 06/10/2022 12/07/2022 1 1 [facility] Work Phone: Reuqwo for referral (narrative)* Consultation (Routine) - Authorized Specialty Diagnoses / Procedures Referred By Contac t Referred To Contact Gastroenterology Diagnoses Lower abdominal pain Procedures [place] OFFICE/OUTPATIENT [facility] MDM 60-74 MINUTES Christ Gardiner DO [address] [facility], [place] [address] Referral ID Status Reason Start Date Expiration Date Visits Requested Visits Authorized [id number] Authorized Specialty Services Required 10/07/2022 04/05/2023 1 1 * Consultation (Routine) - Authorized Specialty Diagnoses / Procedures Referred By Contac t Referred To Contact Allergy Diagnoses Multiple allergies Procedures [place] OFFICE/OUTPATIENT [facility] 60-74 MINUTES Christ Gardiner DO [address] [facility], [place] [address] Referral ID Status Reason Start Date Expiration Date Visits Requested Visits Authorized [id number] Authorized Specialty Services Required 10/07/2022 04/05/2023 1 1 [facility] Work Phone: Reason for referral (narrative)* Consultation (Routine) - Authorized Specialty Diagnoses / Procedures Referred By Contac t Referred To Contact Primary Care Diagnoses Osteoporosis, unspecified osteoporosis type, unspecified pathological fracture presence Benign essential hypertension Coronary artery disease without angina pectoris, unspecified vessel or lesion type, unspecified whether nooksack or transplanted heart Stage 3a chronic kidney disease Hypercholesterolemia Procedures Follow Up In Advanced Primary Care - PCP Christ Gardiner DO [address] [facility], [place] [address] Referral ID Status Reason Start Date Expiration Date V isits Requested Visits Authorized [id number] Authorized 04/15/2022 10/12/2022 1 1 * Consultation (Routine) - Authorized Specialty Diagnoses / Procedures Referred By Contac t Referred To Contact Primary Care Diagnoses Osteoporosis, unspecified osteoporosis type, unspecified pathological fracture presence Benign essential hypertension Coronary artery disease without angina pectoris, unspecified vessel or lesion type, unspecified whether nooksack or transplanted heart Procedures Follow Up In Advanced Primary Care - PCP Christ Gardiner DO [address] [facility], [facility] [address] [place] [id number] Referral ID Status Reason Start Date Expiration Date V isits Requested Visits Authorized [id number] Authorized 04/15/2022 10/12/2022 1 1 * Imaging (Routine) - Authorized Specialty Diagnoses / Procedures Referred By Contac t Referred To Contact Radiology Diagnoses Screening for osteoporosis Postmenopausal estrogen deficiency Procedures XR DEXA bone density Christ Gardiner DO [address] [facility], [facility] [address] [place] [id number] Referral ID Status Reason Start Date Expiration Date Visits Requested Visits Authorized [id number] Authorized Perform Procedure 04/15/2022 10/12/2022 1 1 [facility] Work Phone: Reason for referral (narrative)No reason for referral information [facility] Work Phone: Summary Purpose Family History No Family History Records FoundUnknown Family Member Name Dates Details Family history [...] Status:Active Family history of Coronary A rtery Disease(.49) Status:Active Family history of Diabetes M ellitus(V18.0) Status:Active Family history of Obesity Status:Active Family history of Arthritis( V17.7) Status:Active Father Name Dates Details Family history of Coronary A rtery Disease(.49) Status:Active Family history of Heart Surg bull Status:Active Unknown Family Member Name Dates Details Family history of Heart Dise ase(V1.49) Comments:Family History Status:Active Family history of Hypertensi on(V1.49) Comments:Family History Status:Active Family history of Allergies Comments:Family History Status:Active Family history of Pulmonary Disease Comments:Family History Status:Active Family history of Breast Can cer(V16.3) Comments:Family History Status:Active Mother Name Dates Details Family history of Alzheimer Disease Status:Active Family history of Coronary A rtery Disease(V1.49) Status:Active Family history of Diabetes M ellitus(V18.0) [...] History (V17.49) Status:Active Heart Disease: Family Histor y(7.49) Status:Active [...] Disease: Mother Status:Active Coronary Artery Disease: Mot her(V1749) Status:Active Diabetes Mellitus: Mother(V1 8.0) Status:Active Obesity: Mother Status:Active Arthritis: Mother(V17.7) Status:Active Coronary Artery Disease: Fat her(7.49) Status:Active Heart Surgery: Father Status:Active Breast Cancer: Family Histor y(V16.3) Status:Active Unknown Family Member Name Dates Details Heart Disease: Family Histor y(749) Status:Active Hypertension: Family History (V1749) Status:Active Allergies: Family History Status:Active Pulmonary Disease: [...] Family Histor y(749) Status:Active Hypertension: Family History (7.49) Status:Active Allergies: [...] Name Dates Details Heart Disease: Family Histor y(V1749) Status:Active Hypertension: Family History (V17.49) Status:Active Allergies: Family History Status:Active Pulmonary Disease: Family Hi story Status:Active Alzheimer Disease: Mother Status:Active Coronary Artery Disease: Mot her(V17.49) Status:Active Diabetes Mellitus: Mother(V1 8.0) Status:Active Obesity: Mother Status:Active Arthritis: Mother(V17.7) Status:Active Coronary Artery Disease: Fat her(V17.49) Status:Active Heart Surgery: Father Status:Active Breast Cancer: Family Histor y(V16.3) Status:Active Unknown Family Member Name Dates Details Heart Disease: Family Histor y(V1749) Status:Active Hypertension: Family History (V17.49) Status:Active Allergies: [...] Disease: Mother Status:Active Coronary Artery Disease: Mot her(749) Status:Active Diabetes Mellitus: Mother(V1 8.0) Status:Active Obesity: [...] History (V17.49) Status:Active Heart Disease: Family Histor y(749) Status:Active Unknown Family Member Name Dates Details [...] Family Histor y() Status:Active Hypertension: Family History () Status:Active Allergies: [...] Family Histor y(49) Status:Active Hypertension: Family History (749) Status:Active Allergies: [...] Family Histor y(749) Status:Active Hypertension: Family History (.49) Status:Active Allergies: [...] Name Dates Details Heart Disease: Family Histor y(V1749) Status:Active Hypertension: Family History (749) Status:Active Allergies: [...] Cancer: Family Histor y(V16.3) Status:Active Advance Directives No Advanced Directives Records FoundDocuments on File Type Date Recorded 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 Living Will 10/16/2021 Healthcare Power of Atty 01/05/2017 Latest Code Status on File Code Status Date Activated Date Inactivated Comments Full Code 10/10/2022 9:05 PM 10/16/2022 5:15 PM Advance Directive Response Recorded Date/ Time Living Will Yes October 30, 2022 9:18pm Power of Battery Container Tester Yes October 9:18pm Name of Medical Power of Battery Container Tester Ganga Judge October 30, 2022 9:18pm Advance Directive Response Recorded Date/ Time Name of Medical Power of Battery Container Tester Ganga diggs October 30, 2022 10:55pm Living Will No October 30, 2022 10:55pm Power of Battery Container Tester Yes October 10:55pm Advance Directive Response Recorded Date/ Time Name of Medical Power of Battery Container Tester Ganga diggs October 30, 2022 10:55pm Name of Medical Power of Battery Container Tester Ganga ORTA November 06, 2022 4:26pm Living Will Yes November 06, 2022 4:26pm Power of Battery Container Tester Yes October 4:26pm Advance Directive Response Recorded Date/ Time Name of Medical Power of Battery Container Tester Ganga diggs October 30, 2022 9:55pm Name of Medical Power of Battery Container Tester Ganga ORTA n November 06, 2022 3:26pm Living Will Yes November 06, 2022 3:26pm Power of Battery Container Tester Yes October 3:26pm Advance Directive Response Recorded Date/ Time Name of Medical Power of Battery Container Tester Ganga ORTA n November 06, 2022 3:26pm Living Will Yes November 06, 2022 3:26pm Power of Battery Container Tester Yes October 3:26pm Advance Directive Response Recorded Date/ Time Living Will Yes November 06, 2022 4:26pm Power of Battery Container Tester Yes October 4:26pm Documents on File Type Date 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 No July 25, 2024 2:44pm Advance Directive Response Recorded Date/ Time Do you have a Healthcare Power of Battery Container Tester? No July 25, 2024 6:26pm Hospital Course Note Send Summary:Discharge Summa Providers:Provider RoleProvider Name? ReferringManny Arana? ConsultingVentura Thacker? ConsultingManny Arana? PrimaryMishanyBenjy field? AttendingManny Arana Note Recipients: Manny Arana, Benjy Phan MD - [phone] [Preferred]Ventura Thacker MD Discharge: Summary:Admission Date: .02-Jul-2017 14:57:00Discharge Date: [id number] Physician at Discharge: Manny Arana PAdmission Reason: Abdominal pain(1)Final Discharge Diagnoses: Acute bowel obstruction, Cecal volvulus,Hypokalemia, Magnesium deficiency,Procedures: Date: 03-Jul-2017 00:48:00Procedure Name: US GUIDED PLACEMENT LEFT IJ TLC / ELAP / ANDREIA / RIGHT COLECTOMY/ STAPLED ILEOCOLONIC ANASTAMOSIS / BILATERAL TAP BLOCK Condition at Discharge: SatisfactoryDisposition at Discharge: DC/Xfer to Swing BedVital Signs: T [id number]/7595%Date/Time07/09 7: 7: 7: 7: 7:36Range(36.6C - 37.5C ) (82 - 91 ) (18 - 18 ) (more content not included)... Note Send Summary:Discharge Summa ry Providers:Provider RoleProvider Name? ReferringManny Arana? AttendingManny Arana Note Recipients: Manny Arana MDManohar, Anand Mukund, MD Discharge: Summary:Admission Date: .09-Jul-2017 08:05:00Discharge Date: [id number] Physician at Discharge: Manny Arana PAdmission Reason: Cecal VolvulusFinal Discharge Diagnoses: Cecal volvulus, Clostridium difficile colitis,Procedures: Right hemicolectomyCondition at Discharge: SatisfactoryDisposition at Discharge: Group Home FacilityVital Signs: T [id number]/6894%Date/Time07/17 6: 6: 6: 6: 6:23Range(36.4C - 36.7C [...] Manny Arana MDManohar, Chenguttai Jayaram, MD - [phone] [Preferred]Valerie Jiang MD Discharge: Summary:Admission Date: .26-Jul-2017 13:45:00Discharge Date: [id number] Physician at Discharge: Edwin Jiang Reason: Encephalopathy; Hypercalcemia(1)Final Discharge Diagnoses: RADHA, Encephalopathy, HypercalcemiaProcedures: .Condition at Discharge: SatisfactoryDisposition at Discharge: Group Home FacilityVital Signs: T [id number]/6498%Date/Time07/29 13: 13: 13: 13: 13:52Range(36.6C - 36.8C [...] ReferringAria Gandhi? AttendingAria Gandhi? ConsultingClif Eid? ConsultingManny Arana P? PrimaryBenjy Garnett Note Recipients: Benjy Garnett MD - [phone] [Preferred] Discharge: Summary:Admission Date: .09-Oct-2017 12:52:00Discharge Date: [id number] Physician at Discharge: Kan Gandhi Reason: abd pain, diarrhea, weakness, not feeling well(1)Final Discharge Diagnoses: Acute encephalopathy, Clostridium difficile carrier,Clostridium difficile colitis, Diarrhea, Hypokalemia, Hypomagnesemia, Proteinmalnutrition unspecified (disorder),Procedures: NoneCondition at Discharge: SatisfactoryDisposition at Discharge: Group Home FacilityVital Signs: T [id number]/8395%Date/Time10/13 14: 14: 14: 14: 14:00Range(36.8C - 37.4C ) (63 - 79 ) (16 - 17 ) (144 - 164 )/ (72 - 83 ) (94%- 98% )Highest temp of 37.4 C was recorded at 10/12 20:36Physic (more content not included)... Note Post Operative Note:PreOp Di agnosis: VENOFIBROSIS / CECAL VOLVULUS / SMALL BOWEL OBSTRUCTIONPost-Procedure Diagnosis: SAMEProcedure: US GUIDED PLACEMENT LEFT IJ TLC / ELAP / ANDREIA / RIGHT COLECTOMY /STAPLED ILEOCOLONIC ANASTAMOSIS / BILATERAL TAP BLOCKSurgeon: GOELResident/Fellow/Other Stitcher Tape Controlled Machine: Nura Blood Loss (mL): 50Specimen: yesFindings: CECAL VOLVULUS WITH NON VIABLE CAECUM / DISTENDED EDEMATOUS BOWEL /MULTIPLE ADHESIONS IN THE UPPER ABDOMEN / STOMACH COULD NOT BE FREED DUE TOLARGE HERNIAElectronic Signatures:Manny Arana) (Signed 03-Jul-2017 00:51) Authored: Post Operative Note, Signature/Cosignature/AttestationLast Updated: 03-Jul-2017 00:51 by Manny Arana) Note Send Summary:Discharge Summa ry Providers:Provider RoleProvider Name? ReferringSpencer Hardy? AttendingJessenia Tapia? ConsultingVetnura Thacker? ConsultingDiego Obregon? ConsultingNela Collado? PrimaryBenjy Garnett? AttendingJessenia Tapia Note Recipients: Benjy Garnett MD - [phone] [Preferred]Spencer Hardy MD Discharge: Summary:Admission Date: .26-Aug-2017 02:30:00Discharge Date: [id number] Physician at Discharge: Jessenia Tapia ThereAdmission Reason: SBO(1)Final Discharge Diagnoses: Small bowel obstructionProcedures: noneCondition at Discharge: FairDisposition at Discharge: Group Home FacilityVital Signs: T [id number]/7694%Date/Time09/01 4: 4: 4: 4: 4:36Range(36.5C - 37.7C ) (72 - 83 ) (16 - 18 ) (134 - 150 )/ (60 - 77 ) (94%- 97% )Highest temp of 37.7 C was recorded at 08/31 14:41Hospital Course:admitted for SBO, treated with medical management.Now on roseann (more content not included)... Note Send Summary:Discharge Summa ry Providers:Provider RoleProvider Name? Magui Love? Benjy Pruitt Note Recipients: Magui Stuart, Benjy Phan MD - [phone] [Preferred] Discharge: Summary:Admission Date: .05-Sep-2017 06:05:00Discharge Date: [id number] Physician at Discharge: CarrolAdmission Reason: Acute encephalopathy(1)Final Discharge Diagnoses: Acute encephalopathy-resolvedProbable cause secondary to fallCortical brain contusion Severe protein calorie malnutritionProcedures: noneCondition at Discharge: satisfactoryDisposition at Discharge: [facility]: T [id number]/7094%Date/Time09/07 19: 19: 19: 19: 19:58Range(36.5C - 37C [...] /STAPLED ILEOCOLONIC ANASTAMOSIS / BILATERAL TAP BLOCKSurgeon: GOELResident/Fellow/Other Stitcher Tape Controlled Machine: Nura Blood Loss (mL): 50Specimen: yesFindings: CECAL [...] is here for a hospital follow-up .KATHERINE NU is here for a hospital follow-up .KATHERINE JUDGE is here for a follow-up for anemia, mood, sleep, weight, and HTN.MCW Reason for Referral Specialty Diagnoses / Procedures Referred By Naomi young Referred To Contact Radiology Diagnoses Pneumonia of right lower lobe due to infectious organism Procedures XR chest 2 views XR chest 2 views Christ Gardiner DO [address] [facility], [address] [address] Referral ID Status Reason Start Date Expiration Date Visits Requested Visits Authorized [id number] Authorized Perform Procedure 06/19/2022 12/16/2022 1 1 Chief Complaint and Reason for Visit Chief Complaint CVA, EXPRESSIVE APHA TOMMY, HTN HISTORY Reason for Visit Acute CVA (cerebrova scular accident) History of CAD (coronary artery disease) Hypertension Chief Complaint ACUTE CVA ACUTE CVA ACUTE CVA ACUTE CVA ACUTE CVA Reason for Visit Acute CVA (cerebrova scular accident) History of CAD (coronary artery disease) Hypertension Chief Complaint ACUTE CVA ACUTE CVA ACUTE CVA ACUTE CVA ACUTE CVA neuro symptoms Reason for Visit Acute CVA (cerebrova scular accident) History of CAD (coronary artery disease) Hypertension Chief Complaint ACUTE CVA ACUTE CVA ACUTE CVA ACUTE CVA ACUTE CVA LAB WORK neuro symptoms LAB WORK LABWORK LABWORK Reason for Visit History of CAD (wild nary artery disease) Acute CVA (cerebrovascular accident) Chief Complaint ACUTE CVA ACUTE CVA ACUTE CVA ACUTE CVA ACUTE CVA LAB WORK neuro symptoms LAB WORK LABWORK LABWORK USP LAB WORK Reason for Visit History of CAD (wild nary artery disease) Acute CVA (cerebrovascular accident) Chief Complaint ACUTE CVA ACUTE CVA ACUTE CVA ACUTE CVA ACUTE CVA LAB WORK neuro symptoms LAB WORK LABWORK LABWORK USP LAB WORK DYSPNEA Reason for Visit History of CAD (wild nary artery disease) Acute CVA (cerebrovascular accident) Chief Complaint ACUTE CVA ACUTE CVA ACUTE CVA ACUTE CVA ACUTE CVA LAB WORK neuro symptoms LAB WORK LABWORK LABWORK USP LAB WORK DYSPNEA USP LAB WORK LABWORK Reason for Visit History of CAD (wild nary artery disease) Acute CVA (cerebrovascular accident) Chief Complaint LAB WORK neuro symptoms LAB WORK LABWORK LABWORK USP LAB WORK DYSPNEA USP LAB WORK LABWORK USP LAB WORK Chief Complaint USP LAB WOR K LABWORK USP LAB WORK LABWORK USP LAB WORK Chief Complaint Admit Date USP LAB WORK January 25 5:00am USP LAB WORK February 07 5:45am USP LAB WORK February 08 5:00am USP LAB WORK April 14, 2024 5: 00am Chief Complaint Admit Date FALL WITH HIP FRACTURE July 25, 2024 4 :51pm fall July 25, 2024 5:06 pm Reason for Visit Admit Date Closed intertrochanteric fracture of rig ht hip July 25, 2024 4:51pm Elevated blood pressure reading July 4:51pm Fall July 25, 2024 4:51 pm Chief Complaint Admit Date FALL WITH HIP FRACTURE July 25, 2024 4 :51pm fall July 25, 2024 5:06 pm FALL WITH HIP FRACTURE July 26, 2024 1 0:18am FALL WITH HIP FRACTURE July 26, 2024 6 :18pm FALL WITH HIP FRACTURE July 27, 2024 1 :26pm FALL WITH HIP FRACTURE July 27, 2024 5 :46pm FALL WITH HIP FRACTURE July 28, 2024 7 :08am FALL WITH HIP FRACTURE July 28, 2024 7 :53am Reason for Visit Admit Date 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) July 25, 2024 4:51pm Closed intertrochanteric fracture of rig ht hip July 25, 2024 4:51pm Elevated blood pressure reading July 4:51pm Fall July 25, 2024 4:51 pm Additional Source Comments INFORMATION SOURCE (unrecogn ized section and content) DATE CREATED AUTHOR 01/17/2018 [facility] DATE CREATED AUTHOR AUTHOR'S ORGANIZ ATION 01/21/2018 [facility] DATE CREATED AUTHOR AUTHOR'S ORGANIZ ATION 01/30/2018 [facility] DATE CREATED AUTHOR AUTHOR'S ORGANIZ ATION 12/21/2020 [facility] DATE CREATED AUTHOR AUTHOR'S ORGANIZ ATION 06/02/2022 [facility] DATE CREATED AUTHOR AUTHOR'S ORGANIZ ATION [facility] DATE CREATED AUTHOR AUTHOR'S ORGANIZ ATION 07/21/2022 [facility] DATE CREATED AUTHOR AUTHOR'S ORGANIZ ATION 09/13/2022 [facility] DATE CREATED AUTHOR AUTHOR'S ORGANIZ ATION 10/08/2022 [facility] DATE CREATED AUTHOR AUTHOR'S ORGANIZ ATION 10/16/2022 [facility] DATE CREATED AUTHOR AUTHOR'S ORGANIZ ATION 10/28/2022 [facility] DATE CREATED AUTHOR AUTHOR'S ORGANIZ ATION 06/09/2024 [facility] DATE CREATED AUTHOR AUTHOR'S ORGANIZ ATION 07/31/2024 [facility] Reason for Visit (unrecogniz ed section and content) Reason Comments Follow-up Bone density results -discuss meds Reason Comments Follow-up 1 week fuv HYPOXIA Specialty Diagnoses / Procedures Referred By Contac t Referred To Contact Primary Care Diagnoses Hypoxia Benign essential hypertension Procedures Follow Up In Advanced Primary [facility] - PCP Christ Gardiner DO [address] [facility], [address] [place] [address] Referral ID Status Reason Start Date Expiration Date V isits Requested Visits Authorized [id number] Authorized 06/01/2022 11/28/2022 1 1 Reason Comments Follow-up Lungs Specialty Diagnoses / Procedures Referred By Contac t Referred To Contact Primary Care Diagnoses Hypoxia Pneumonia of right lower lobe due to infectious organism Abdominal pain, unspecified abdominal location Procedures Follow Up In [facility] - PCP Christ Gardiner DO [address] [facility], [address] [place] [address] Referral ID Status Reason Start Date Expiration Date V isits Requested Visits Authorized [id number] Authorized 06/10/2022 12/07/2022 1 1 Reason Comments Follow-up Pt presents for 6 mo [facility] follow up- pt states that her allergies have been bothering her. Specialty Diagnoses / Procedures Referred By Contac t Referred To Contact Primary Care Diagnoses Osteoporosis, unspecified osteoporosis type, unspecified pathological fracture presence Benign essential hypertension Coronary artery disease without angina pectoris, unspecified vessel or lesion type, unspecified whether nooksack or transplanted heart Procedures Follow Up In [facility] - PCP Christ Gardiner DO [address] [facility], [address] [place] [address] Referral ID Status Reason Start Date Expiration Date V isits Requested Visits Authorized [id number] Authorized 04/15/2022 10/12/2022 1 1 Reason Comments Abdominal Pain Pt states since last night she had right sided abd pain that moved to the left side. Pt states today she started to cough as well. Pt is alert and oriented vitals taken in triage Specialty Diagnoses / Procedures Referred By Contac t Referred To Contact Diagnoses Abdominal pain, generalized Proctocolitis Constipation, unspecified constipation type Procedures . Akil Lucio MD [address] [place] [address] [facility] [address] [place] [address] Referral ID Status Reason Start Date Expiration Date Visits Re quested Visits Authorized [id number] 1 1 Care Teams (unrecognized sec tion and content) Team Status: Active Member Role Status Dates Dr. Kam Ocampo SrLeigh , DO Primary Care Provider Active Team Status: Inactive Member Role Status Dates Dr. Jacobo Moya , Emergency Provider Active Start: July 25, 2024 End: July 28, 2024 Dr. Kam Ocampo Sr. , DO Primary Care Provider Active Start: July 25, 2024 End: July 28, 2024 Dr. Hayden Diaz , DO Admit Provider Active Start: July 25, 2024 End: July 28, 2024 Dr. Hayden Diaz , DO Other Provider Active Start: July 25, 2024 End: July 28, 2024 Dr. Thanh Mclaughlin , DO Other Provider Active St art: July 25, 2024 End: July 28, 2024 Dr. Neymar Cunningham MD Attending Provider Active Start: July 25, 2024 End: July 28, 2024 Team Status: Active Member Role Status Dates Dr. Jacobo Moya DO Emergency Provider Active Start: July 25, 2024 Dr. Kam Ocampo Sr. , DO Primary Care Provider Active Start: July 25, 2024 Dr. Thanh Mclaughlin , DO Attending Provider Active Start: July 25, 2024 Team Status: Active Member Role Status Dates Dr. Kam Ocampo Sr. , DO Primary Care Provider Active Start: July 26, 2024 Dr. Kaden Corcoran MD Attending Provider Active S tart: July 26, 2024 Team Status: Active Member Role Status Dates Dr. Jacobo Moya DO Emergency Provider Active Start: July 26, 2024 Dr. Kam Ocampo Sr. , DO Primary Care Provider Active Start: July 26, 2024 Dr. Hayden Diaz , DO Admit Provider Active Start: July 26, 2024 Dr. Hayden Diaz , DO Other Provider Active Start: July 26, 2024 Dr. Thanh Mclaughlin , DO Other Provider Active St art: July 26, 2024 Dr. Neymar Cunningham MD Attending Provider Active Start: July 26, 2024 Dr. Neymar Cunningham MD Other Provider Active Sta rt: July 26, 2024 Team Status: Active Member Role Status Dates Dr. Jacobo Moya DO Emergency Provider Active Start: July 26, 2024 Dr. Kam Ocampo Sr. , DO Primary Care Provider Active Start: July 26, 2024 Dr. Hayden Diaz , DO Admit Provider Active Start: July 26, 2024 Dr. Hayden Diaz , DO Other Provider Active Start: July 26, 2024 Dr. Thanh Mclaughlin DO Attending Provider Active Start: July 26, 2024 Dr. Thanh Mclaughlin DO Other Provider Active St art: July 26, 2024 Dr. Neymar Cunningham MD Other Provider Active Sta rt: July 26, 2024 Team Status: Active Member Role Status Dates Dr. Jacobo Moya DO Emergency Provider Active Start: July 27, 2024 Dr. Kam Ocampo Sr. , DO Primary Care Provider Active Start: July 27, 2024 Dr. Hayden Diaz , DO Admit Provider Active Start: July 27, 2024 Dr. Hayden Diaz , DO Other Provider Active Start: July 27, 2024 Dr. Thanh Mclaughlin , DO Attending Provider Active Start: July 27, 2024 Dr. Thanh Mclaughlin , DO Other Provider Active St art: July 27, 2024 Dr. Neymar Cunningham MD Other Provider Active Sta rt: July 27, 2024 Team Status: Active Member Role Status Dates Dr. Jacobo Moya , DO Emergency Provider Active Start: July 27, 2024 Dr. Kam Ocampo Sr. , DO Primary Care Provider Active Start: July 27, 2024 Dr. Hayden Diaz , DO Admit Provider Active Start: July 27, 2024 Dr. Hayden Diaz , DO Other Provider Active Start: July 27, 2024 Dr. Thanh Mclaughlin , DO Other Provider Active St art: July 27, 2024 Dr. Neymar Cunningham MD Attending Provider Active Start: July 27, 2024 Dr. Neymar Cunningham MD Other Provider Active Sta rt: July 27, 2024 Team Status: Active Member Role Status Dates Dr. Jacobo Moya , DO Emergency Provider Active Start: July 28, 2024 Dr. Kam Ocampo Sr. , DO Primary Care Provider Active Start: July 28, 2024 Dr. Hayden Diaz , DO Admit Provider Active Start: July 28, 2024 Dr. Hayden Diaz , DO Other Provider Active Start: July 28, 2024 Dr. Thanh Mclaughlin , DO Attending Provider Active Start: July 28, 2024 Dr. Thanh Mclaughlin , DO Other Provider Active St art: July 28, 2024 Dr. Neymar Cunningham MD Other Provider Active Sta rt: July 28, 2024 Team Status: Active Member Role Status Dates Dr. Jacobo Moya , DO Emergency Provider Active Start: July 28, 2024 Dr. Kam Ocampo Sr. , DO Primary Care Provider Active Start: July 28, 2024 Dr. Hayden Diaz , DO Admit Provider Active Start: July 28, 2024 Dr. Hayden Diaz , DO Other Provider Active Start: July 28, 2024 Dr. Thanh Mclaughlin , DO Other Provider Active St art: July 28, 2024 Dr. Neymar Cunningham MD Attending Provider Active Start: July 28, 2024 Dr. Neymar Cunningham MD Other Provider Active Sta rt: July 28, 2024 Team Status: Active Member Role Status Dates Dr. Jacobo Moya , Emergency Provider Active Start: July 25, 2024 Dr. Kam Ocampo Sr. , DO Primary Care Provider Active Start: July 25, 2024 Dr. Hayden Diaz , DO Admit Provider Active Start: July 25, 2024 Dr. Hayden Diaz , DO Attending Provider Active Start: July 25, 2024 Team Status: Inactive Member Role Status Dates Dr. Kam Ocampo Sr. , Primary Care Provider Active Kam FUCHS MD Attending Provider Active Team Status: Inactive Member Role Status Dates Dr. Kam Ocampo Sr. , DO Primary Care Provider Active Kam FUCHS MD Attending Provider, Referring Pro vider Active Loop Cutter Relationship Specialty Start Date End Date Christ Gardiner DO [address] [facility], [facility] 1 [place] [address] PCP - General 05/19/06 Apple Aguilar, ANATOLY-CONTROL CABINET ASSEMBLER [address] [employer] [facility] [address], [address] [address] PCP - MSSP ACO Attributed Provider 08/09/21 Loop Cutter Relationship Specialty Start Date End Date Christ Gardiner DO [address] [facility], [facility] 1 [place] [address] PCP - General 05/19/06 Apple Aguilar, CHILD DAY CARE TEACHER-CONTROL CABINET ASSEMBLER [address] [email or web address] [facility], [address] [place] [address] PCP - MSSP ACO Attributed Provider 08/09/21 Loop Cutter Relationship Specialty Start Date End Date Christ Gardiner DO [address] [facility], [facility] 1 [place] [address] PCP - General 05/19/06 Apple Aguilar, CHILD DAY CARE TEACHER-CONTROL CABINET ASSEMBLER [address] [facility] [address], [address] [place] [address] PCP - MSSP ACO Attributed Provider 08/09/21 Loop Cutter Relationship Specialty Start Date End Date Christ Gardiner DO [address] [facility], [address] [address] PCP - General 05/19/06 Christ Gardiner DO [address] [facility], [address] [place] [address] PCP - MSSP ACO Attributed Provider 05/10/22 Loop Cutter Relationship Specialty Start Date End Date Saida Gardiner [address] [address] PCP - General Harp Maker 10/10/22 Team Status: Active Member Role Status Dates Dr. Amalia Donahue , DO Emergency Provider Active Dr. Kam Ocampo Sr. , DO Primary Care Provider Active Dr. Hayden Diaz , DO Admit Provider, Attending Provider Active Team Status: Active Member Role Status Dates Dr. Amalia Donahue , DO Emergency Provider Active Dr. Kam Ocampo Sr. , DO Primary Care Provider Active Dr. Hayden Diaz , DO Admit Provider, Other Pro vider Active Dr. Neymar Cunningham MD Other Provider Active Dr. Ajay Nieves , DO Attending Provider Active Team Status: Active Member Role Status Dates Dr. Amalia Donahue , DO Emergency Provider Active Dr. Kam Ocampo Sr. , DO Primary Care Provider Active Dr. Hayden Diaz , DO Admit Provider, Other Pro vider Active Dr. Neymar Cunningham MD Attending Provider, Other Provi lizeth Active Team Status: Active Member Role Status Dates Dr. Kam Ocamop Sr. , DO Primary Care Provider Active Dr. Juanita Jiang MD Attending Provider Activ e Team Status: Active Member Role Status Dates Dr. Amalia Donahue , DO Emergency Provider Active Dr. Kam Ocampo Sr. , DO Primary Care Provider Active Dr. Hayden Diaz , DO Admit Provider, Other Pro vider Active Dr. Neymar Cunningham MD Attending Provider, Other Provi lizeth Active Dr. Mu Grossman MD Other Provider Active Dr. Ajay Nieves , DO Other Provider Active Dr. Dayron Workman MD Other Provider Active Dr. Lucio Brown MD Other Provider Active Dr. Alen Burgess MD Other Provider Active Melania Perez STONE PLANER, STONE PLANER-C Other Provider Active Team Status: Inactive Member Role Status Dates Dr. Amalia Donahue , DO Emergency Provider Active Dr. Kam Ocampo Sr. , DO Primary Care Provider Active Dr. Hayden Diaz , DO Admit Provider, Other Pro vider Active Dr. Neymar Cunningham MD Attending Provider Active Dr. Mu Grossman MD Other Provider Active Dr. Ajay Nieves , DO Other Provider Active Dr. Dayron Workman MD Other Provider Active Dr. Lucio Brown MD Other Provider Active Dr. Alen Burgess MD Other Provider Active Melania Perez STONE PLANER, STONE PLANER-C Other Provider Active Team Status: Active Member Role Status Dates Dr. Kam Ocampo Sr. , DO Primary Care Provider Active Kam FUCHS MD Attending Provider Active Team Status: Inactive Member Role Status Dates Dr. Kam Ocampo Sr. , DO Primary Care Provider Active Dr. Yandel Matute , DO Emergency Provider Active Team Status: Active Member Role Status Dates Dr. Amalia Donahue , DO Emergency Provider Active Dr. Kam Ocampo Sr. , DO Primary Care Provider Active Dr. Hayden Diaz , DO Admit Provider, Other Pro vider Active Dr. Neymar Cunningham MD Referring Provider, Other Provi lizeth Active Dr. Ajay Nieves , DO Attending Provider Active Team Status: Active Member Role Status Dates Dr. Kam Ocampo Sr. , DO Primary Care Provider Active Dr. Juanita Jiang MD Attending Provider, Refe rring Provider Active Team Status: Active Member Role Status Dates Dr. Kam Ocampo Sr. , DO Primary Care Provider Active Kam FUCHS MD Attending Provider, Referring Pro vider Active Team Status: Inactive Member Role Status Dates Dr. Kam Ocampo Sr. , DO Primary Care Provider Active Dr. Yandel Matute DO Attending Provider, Emergency Provider Active Team Status: Inactive Member Role Status Dates Dr. Kam Ocampo Sr. , DO Primary Care Provider Active Dr. Gino Blas MD Attending Provider, Referrin g Provider Active Loop Cutter Relationship Specialty Start Date End Date Rashad Christ AgostoDO [address] [facility], [address] [place] [address] PCP - General 05/19/06 Apple Aguilar APRN-CONTROL CABINET ASSEMBLER [address] [facility] [address], [address] [place] [address] PCP - MSSP ACO Attributed Provider 08/09/21 Team Status: Inactive Member Role Status Dates Dr. Kam Ocampo Sr. , DO Primary Care Provider Active Start: January 26, 2024 End: January 26, 2024 Kam FUCHS MD Attending Provider Active S tart: January 26, 2024 End: January 26, 2024 Team Status: Inactive Member Role Status Dates Dr. Kam Ocampo Sr. , DO Primary Care Provider Active Start: February 08, 2024 End: February 08, 2024 Kam FUCHS MD Attending Provider Active S tart: February 08, 2024 End: February 08, 2024 Team Status: Active Member Role Status Dates Dr. Kam Ocampo Sr. , DO Primary Care Provider Active Start: February 09, 2024 Kam FUCHS MD Attending Provider Active S tart: February 09, 2024 Team Status: Inactive Member Role Status Dates Dr. Kam Ocampo Sr. , DO Primary Care Provider Active Start: April 14, 2024 End: April 14, 2024 Kam Terrence FUCHS MD Attending Provider Active S tart: April 14, 2024 End: April 14, 2024 Scheduled Active and Recently Administ ered Medications (unrecognized section and content) Medication Order 10/14/2022 10/15/2022 10/16/2022 atorvastatin (Lipitor) tablet 10 mg 10 mg, Oral, Daily, First dose on 10/11/22 at 0915 0922 (Given - Provider: Colette Sanders RN) 0824 (Given - Provider: Shannon Orantes RN) 0859 (Given - Provider: Sophia Moreira RN) azelastine (Astelin) 0.1 % nasal spray 1 spray 1 spray, Each Nostril, 2 times daily, First dose on 10/11/22 at 0915 0923 (Given - Provider: Colette Sanders RN)2099 (Given - Provider: Rena Luna, CINTHYA) 08 (Given - Provider: Shannon Orantes, CINTHYA)2052 (Given - Provider: Autumn Kelly RN) 09 (Given - Provider: Sophia Moreira RN) buPROPion XL (Wellbutrin XL) 24 hr tablet 150 mg 150 mg, Oral, Daily, First dose on 10/11/22 at 0915, Do not crush, chew, or split. 0922 (Given - Provider: Colette Sanders RN) 0824 (Given - Provider: Shannon Orantes, CINTHYA) 0859 (Given - Provider: Sophia Moreira, RN) cetirizine (ZyrTEC) tablet 10 mg 10 mg, Oral, Daily, First dose on 10/11/22 at 0915 0922 (Given - Provider: Colette Sanders RN) 0824 (Given - Provider: Shannon Orantes RN) 0859 (Given - Provider: Sophia Moreira RN) clopidogrel (Plavix) tablet 75 mg 75 mg, Oral, User specified (Once per day on Thu), First dose (after last reorder) on Thu10/13/22 at 0900 0824 (Given - Provider: Shannon Orantes, CINTHYA) doxazosin (Cardura) tablet 2 mg 2 mg, Oral, Nightly, First dose on 10/11/22 at 2100 2044 (Given - Provider: Rena Luna, CINTHYA) 2049 (Given - Provider: Autumn Kelly RN) enoxaparin (Lovenox) syringe 40 mg 40 mg, SubCUTAneous, Every 24 hours scheduled (Daily), First dose on 10/11/22 at 0900, Indication of Use: Prophylaxis-DVT/PE, Indications: Prophylaxis of Venous Thromboembolism 921 (Given - Provider: Colette Sanders RN) 823 (Given - Provider: Shannon Orantes RN) 0859 (Given - Provider: Sophia Moreira RN) gabapentin (Neurontin) tablet 600 mg 600 mg, Oral, 2 times daily, First dose on 10/11/22 at 0915 921 (Given - Provider: Colette Sanders RN)2044 (Given - Provider: Rena Luna RN) 823 (Given - Provider: Shannon Orantes RN)2049 (Given - Provider: Autumn Kelly RN) 08 (Given - Provider: Sophia Moreira RN) isosorbide mononitrate ER (Imdur) 24 hr tablet 60 mg 60 mg, Oral, Daily, First dose on 10/11/22 at 0915, Do not chew or crush ER tablets; may be divided in half. Due to insoluble matrix embedding, ER tablets that are scored may be split. 921 (Given - Provider: Colette Sanders RN) 823 (Given - Provider: Shannon Orantes RN) 08 (Given - Provider: Sophia Moreira RN) meropenem [...] daily, First dose on 10/11/22 at 0915 09 (Given - Provider: Colette Sanders RN)2044 (Given - Provider: Rena Luna, CINTHYA) 823 (Given - Provider: Shannon Orantes, RN)2050 (Given - Provider: Autumn Kelly, CINTHYA) 0859 (Given - Provider: Sophia Moreira, CINTHYA) mirtazapine (Remeron) tablet 30 mg 30 mg, Oral, Nightly, First dose on 10/11/22 at 2099 2044 (Given - Provider: Rena Luna, CINTHYA) 2049 (Given - Provider: Autumn Kelly, CINTHYA) montelukast (Singulair) tablet 10 mg 10 mg, Oral, Nightly, First dose on 10/11/22 at 2099 2044 (Given - Provider: Rena Luna, CINTHYA) 2050 (Given - Provider: Autumn Kelly RN) potassium chloride CR (Klor-Con M20) ER tablet 20 mEq 20 mEq, Oral, Daily, First dose on 10/11/22 at 0915, Best given with food and plenty of water to minimize gastric irritation. Do not crush or chew. 09 (Given - Provider: Colette Sanders RN) 0824 (Given - Provider: Shannon Orantes, CINTHYA) 0900 (Given - Provider: Sophia Moreira, CINTHYA) senna-docusate sodium (Senokot-S) 8.6-50 MG tablet 2 tablet (CANCELED) 2 tablet, Oral, Daily, First dose on 10/11/22 at 0930 0922 (Given - Provider: Colette Sanders, CINTHYA) therapeutic multivitamin-minerals (Theragran-M) tablet 1 tablet, Oral, Daily, First dose on 10/11/22 at 0915 0922 (Given - Provider: Colette Sanders RN) 0824 (Given - Provider: Shannon Orantes, RN) 0859 (Given - Provider: Sophia Moreira, CINTHYA) PRN Medication Order 10/14/2022 10/15/2022 10/16/2022 acetaminophen [...] (See Alternative - Provider: Colette Sanders RN) 0830 (See Alternative - Provider: Shannon Orantes RN)2049 (See Alternative - Provider: Autumn Kelly, CINTHYA) 0859 (See Alternative - Provider: Sophia Moreira RN) acetaminophen (Tylenol) tablet 650 mg(Linked Group 1) [...] Kelly, CINTHYA) 0859 (Given - Provider: Sophia Moreira RN) dicyclomine (Bentyl) capsule 10 mg 10 mg, Oral, 4 times daily PRN, abdominal cramping, Starting on Thu10/15/22 at 1108 1145 (Given - Provider: Shanonn Orantes, CINTHYA)1843 (Given - Provider: Shannon Orantes, CINTHYA) 0906 (Given - Provider: Sophia Moreira RN) HYDROmorphone (Dilaudid) injection 0.5 mg 0.5 mg, IntraVENous, Every 3 hours PRN, severe pain (7-10), Starting on Thu10/11/22 at 0548, If oral and IV narcotics ordered, use oral first and only use IV if oral is ineffective or cannot take oral. Do Not give oral and IV within 1 hour of each other unless specifically ordered. 1937 (Given - Provider: Rena Luna, CINTHYA) 0213 (Given - Provider: Rena Luna, CINTHYA) ipratropium-albuterol (Duo-Neb) 0.5-2.5 mg/3 mL nebulizer solution [...] may be documented in a n alternate sectionGoals may be documented in an alternate sectionGoals may be documented in an alternate sectionGoals may be documented in an alternate sectionGoals may be documented in an alternate section FOR RECORDS PERTAINING TO PATIENTS [...] BE BASED ON THE PRIMARY CLINICAL RECORDS. [employer] provides no warranty or guarantee of the accuracy or completeness of information in this document.
[2024-08-01 08:58] LABS: Hematocrit 20.9 % (37-47); Mean Corp Hgb Conc 33.5 g/dL (32-36); Mean Corpuscular Hgb 33.7 pg (27.0-32.0); Mean Corpuscular Volume 100.5 fL (81-99); Mean Platelet Vol. 9.3 fl (6.2-12.0); Platelet Count 224 K/mm3 (150-450); RBC Distribution Width CV 14.6 % (11.6-14.6); RBC Distribution Width SD 51.6 fl (35.1-43.9); Red Blood Count 2.08 M/mm3 (4.2-5.4); White Blood Count 6.6 K/mm3 (4.4-11.0)
[2024-08-01 10:17] LABS: Anion Gap 9 (5-15); BUN 17 mg/dL (4-19); BUN/Creat Ratio 19.7 RATIO (10-20); Calcium,Total 9.1 mg/dL (7.6-11.0); Chloride 98 mmol/L (98-108); Creatinine, Serum 0.88 mg/dL (0.70-1.20); EST Glomerular Filtration Rate 63 (>60); Glucose 96 mg/dL (70-99); Potassium 4.1 mmol/L (3.3-5.1); Sodium Level 139 mmol/L (133-145)
== END ==
LOC: OLS.ACH 05:00
PROVIDERS: PCP Internal Medicine; Visit Provider Internal Medicine
DX: S72.141D Displaced intertrochanteric fracture of right femur, subsequent encounter for closed fracture with routine healing (principal)
CPT/HCPCS: 36415; 80048; 85027

== ENCOUNTER 2024-08-02 13:03 | Inpatient (IN) | payer MEDICARE, OTHER, MEDICAID, SELFPAY ==
[2024-08-02] VITALS (14 sets, daily range): BP systolic 101–135; BP diastolic 41–80; PULSE 79–87; RESP 12–22; TEMP 36.5–37.3; O2SAT 97–100; BMI 22.2
--- NOTE | 2024-08-02 14:09 | CT_ITS ---
PROCEDURE: ABDOMEN/PELVIS W IV CONT ONLY 08/02/2024 REASON FOR EXAM: ABD PAIN, ANEMIA Confusion. TECHNIQUE: ABDOMEN/PELVIS W IV CONT ONLY Coronal and Sagittal reconstruction series were provided. CONTRAST: Isovue-300 VOLUME: 75 mL One or more dose reduction techniques were used (e.g., Automated exposure control, adjustment of the mA and/or kV according to patient size, use of iterative reconstruction technique. RADIATION DOSE SUMMARY: CTDlvol: 13 mGy DLP: 411.45 mGycm COMPARISON: None FINDINGS: Lung bases: Mild linear scarring at the lung bases worse on the right side. Midline sternotomy and coronary bypass surgery. Coronary artery calcification. The patient appears to have undergone a gastric pull-through surgical procedure with the the stomach in the lower right hemithorax. Liver: Diffuse fatty infiltration. Minimally dilated central intrahepatic biliary ducts. Gallbladder: Unremarkable. Spleen: Normal size. Pancreas: Diffuse fatty atrophy. Adrenals: Unremarkable Kidneys: Unremarkable Bladder: Distended urinary bladder. Reproductive Organs: Prior hysterectomy. Adnexal regions are unremarkable. Bowel: Colonic diverticulosis without diverticulitis. Appendix: Status post appendectomy. Lymph nodes: Unremarkable. Vasculature: Mild diffuse atherosclerotic calcifications are noted. Peritoneum / Retroperitoneum: Unremarkable Bones: Excessive lordosis of the lumbar spine. Almost complete collapse of the L1 vertebrae. Multilevel degenerative changes. 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 Distended urinary bladder. Minimal intrahepatic biliary ductal dilatation. Reading Location: [id number]
[2024-08-02 14:21] LABS: Absolute Lymphocyte Count 1.51 X10^3/uL (0.83-4.51); Absolute Neutrophil Count 5.4 X10^3/uL (2.0-7.7); Basophil# 0.03 X10^3/uL; Basophil% 0.4 % (0-1); Eosinophil# 0.11 X10^3/uL; Eosinophils% 1.4 % (0-5); Hematocrit 21.3 % (37-47); Hemoglobin 7.3 g/dL (12.0-15.0); Lymphocyte # 1.51 X10^3/ul (0.83-4.51); Lymphocyte % 19.7 % (19-41); Mean Corp Hgb Conc 34.3 g/dL (32-36); Mean Corpuscular Hgb 34.6 pg (27.0-32.0); Mean Corpuscular Volume 100.9 fL (81-99); Mean Platelet Vol. 8.9 fl (6.2-12.0); Monocyte# 0.55 X10^3/uL; Monocyte% 7.2 % (0-10); NRBC Flagged by Analyzer 0 % (0-5); Neutrophil # 5.42 X10^3/uL (2.7-7.7); Neutrophil % 70.8 % (47-70); Platelet Count 263 K/mm3 (150-450); RBC Distribution Width CV 15.9 % (11.6-14.6); RBC Distribution Width SD 50.4 fl (35.1-43.9); Red Blood Count 2.11 M/mm3 (4.2-5.4); White Blood Count 7.7 K/mm3 (4.4-11.0)
[2024-08-02 14:46] LABS: ALB/GLOB Ratio 1.1 RATIO (0.9-2.4); AST(SGOT) 36 U/L (<=31); Alanine Aminotransfer ALT/SGPT 25 U/L (<=34); Alkaline Phosphatase 75 U/L (35-104); Anion Gap 8 (5-15); BUN 18 mg/dL (4-19); BUN/Creat Ratio 21.5 RATIO (10-20); Calcium,Total 9.7 mg/dL (7.6-11.0); Carbon Dioxide 34.9 mmol/L (21.0-32.0); Chloride 98 mmol/L (98-108); Creatinine, Serum 0.83 mg/dL (0.70-1.20); EST Glomerular Filtration Rate 68 (>60); Estimated Creatinine Clearance 33.65 ml/min (50-250); Globulin 2.8 g/dL (2.2-4.2); Glucose 114 mg/dL (70-99); Lipase 21 U/L (13-75); Potassium 3.6 mmol/L (3.3-5.1); Protein, Total 5.8 g/dL (5.9-8.4); Sodium Level 141 mmol/L (133-145)
--- NOTE | 2024-08-02 15:05 | EX.ED.DYSGE1 ---
HPI History of Present Illness Chief Complaint: Abn Labs Narrative Narrative: Patient is a 81-year-old female with past medical history of TIA, hypertension, hypertension who presented to the emergency department with concern for low hemoglobin. According to the son at bedside she has also been more confused lately. She had a hip replacement done on the right side about a week ago and had been doing well. They state that she has a chronic iron deficiency as well and had given her iron replacement while in the hospital last time. [facility] Medical History TIA (transient ischemic attack) Personal history of other diseases of digestive system Noninfective gastroenteritis and colitis, unspecified Essential hypertension Diaphragmatic hernia without obstruction or gangrene Constipation, unspecified Atherosclerotic heart disease of inupiat coronary artery without angina pectoris Other specified disorders of white blood cells Other lack of coordination Hyperthyroidism Gout, unspecified Difficulty in walking, not elsewhere classified Depression, unspecified Calculus of gallbladder and bile duct without cholecystitis without obstruction Age-related physical debility Hypertension Home Medications ?Medication ?Instructions ?Recorded ?Last Taken ?Type Lactobacillus-Bifidobacterium 30 1 cap PO DAILY 10/30/22 Unknown History billion cell capsule,delayed release (Ultimate Xuan Probiotic) acetaminophen 325 mg capsule 500 mg PO BID 10/30/22 Unknown History (Tylenol) azelastine 137 mcg (0.1 %) nasal 1 spray intranasal BID 10/30/22 Unknown History spray bupropion HCl 150 mg 24 hr tablet, 150 mg PO DAILY 10/30/22 Unknown History extended release calcium carbonate (Calcium 500) 500 mg PO DAILY 10/30/22 Unknown History dicyclomine 10 mg capsule 10 mg PO Q6H 10/30/22 Unknown History doxazosin 2 mg tablet (Cardura) 2 mg PO DAILY 10/30/22 10/30/22 History fluticasone propionate 50 1 spray intranasal DAILY 10/30/22 Unknown History mcg/actuation nasal spray,suspension (24 Hour Allergy Relief) food supplemt, lactose-reduced 8 ml PO DAILY 10/30/22 Unknown History (Ensure oral liquid) gabapentin 600 mg tablet 600 mg PO BID 10/30/22 Unknown History guaifenesin 100 mg/5 mL oral 200 mg PO Q8 10/30/22 Unknown History liquid (Chest Congestion Relief) inulin 2 gram chewable tablet 5 g PO DAILY 10/30/22 Unknown History (Fiber Gummies) isosorbide mononitrate 30 mg 30 mg PO DAILY 10/30/22 Unknown History tablet,extended release 24 hr metoprolol tartrate 25 mg tablet 25 mg PO BID 10/30/22 Unknown History mirtazapine 30 mg tablet 30 mg PO QHS 10/30/22 Unknown History montelukast 10 mg tablet 10 mg PO QHS 10/30/22 Unknown History multivitamin (Daily Multi-Vitamin 1 tab PO DAILY 10/30/22 Unknown History tablet) pantoprazole 40 mg tablet,delayed 40 mg PO DAILY 10/30/22 Unknown History release potassium chloride 20 mEq 20 meq PO DAILY 10/30/22 Unknown History tablet,extended release (K-Tab) atorvastatin 40 mg tablet 40 mg PO QHS 20 days #30 tabs 11/02/22 Unknown Rx cetirizine 5 mg tablet 5 mg PO DAILY 08/02/24 Unknown History ferrous sulfate 325 mg (65 mg 325 mg PO DAILY 08/02/24 Unknown History iron) tablet inulin-chromium picolinate 2 tab PO 08/02/24 Unknown History gram-100 mcg chewable tablet (Fiber Select Gummies) Allergy/AdvReac Type Severity Reaction Status Date / Time cephalexin Allergy NEEDS Verified 08/02/24 16:18 FOLLOW-UP clarithromycin Allergy NEEDS Verified 08/02/24 16:18 FOLLOW-UP clindamycin Allergy NEEDS Verified 08/02/24 16:18 FOLLOW-UP doxazosin Allergy NEEDS Verified 11/06/22 16:25 FOLLOW-UP erythromycin base Allergy NEEDS Verified 08/02/24 16:18 FOLLOW-UP eszopiclone Allergy NEEDS Verified 08/02/24 16:18 FOLLOW-UP Fish Containing Products Allergy NEEDS Verified 08/02/24 16:18 FOLLOW-UP fish derived Allergy NEEDS Verified 08/02/24 16:18 FOLLOW-UP lincomycin Allergy NEEDS Verified 08/02/24 16:18 FOLLOW-UP lorazepam Allergy NEEDS Verified 08/02/24 16:18 FOLLOW-UP NSAIDS (Non-Steroidal Allergy NEEDS Verified 08/02/24 16:18 Anti-Inflamma FOLLOW-UP Penicillins Allergy NEEDS Verified 08/02/24 16:18 FOLLOW-UP rofecoxib Allergy NEEDS Verified 08/02/24 16:18 FOLLOW-UP salicylates Allergy NEEDS Verified 08/02/24 16:18 FOLLOW-UP temazepam Allergy NEEDS Verified 08/02/24 16:18 FOLLOW-UP Tetracyclines Allergy NEEDS Verified 08/02/24 16:18 FOLLOW-UP trazodone Allergy NEEDS Verified 08/02/24 16:18 FOLLOW-UP mushroom (mushrooms) AdvReac Food Unverified 08/02/24 16:18 Allergy Surgical History Presence of aortocoronary bypass graft Social History Smoking Status: Never smoker ROS ROS ED ROS Narrative Constitutional: Denies fevers, chills, headaches Eyes: Denies change in vision double vision blurry vision Cardiovascular: Denies chest pain Respiratory: Complains of shortness of breath denies coughing Abdomen: Denies abdominal pain nausea vomiting diarrhea : Denies urinary symptoms Neurological: Denies any numbness, wheeze, tingling Musculoskeletal: Denies back pain Skin: Denies any rashes or lesions EXAM Physical Exam Narrative Exam Narrative: General: Patient was lying in bed rest comfortably did not appear to be acute distress Head: Atraumatic, normocephalic Eyes: PERRL bilaterally, EOMI bilateral, no conjunctival injection noted Neck: Soft, supple, trachea midline Cardiovascular: Regular rate and rhythm Respiratory: Clear to auscultation bilaterally Abdomen: Soft, nondistended, diffuse tenderness to palpation no rebound or guarding on exam Extremities: Radial pulses +2/4 in the bilateral extremities, +4/5 strength noted in the bilateral upper and lower extremities, no pedal edema exam Neurological: Patient following commands knew that she was at the hospital Skin: Warm, dry, tact no rashes lesions noted Const Vital Signs: 08/02/24 13:04 08/02/24 13:06 08/02/24 13:06 Temperature 99 F 98.6 F Temperature Source Oral Oral Pulse Rate 85 81 Respiratory Rate 16 14 Respiratory Effort Normal Respiratory Pattern Normal Blood Pressure 115/53 L 119/41 L Blood Pressure Mean 73 67 Pulse Ox 97 99 Oxygen Delivery Method Room Air Oxygen Flow Rate (L/min) 08/02/24 14:09 08/02/24 15:00 08/02/24 16:00 Temperature 98.7 F Temperature Source Oral Pulse Rate 86 80 82 Respiratory Rate 18 15 15 Respiratory Effort Respiratory Pattern Blood Pressure 114/65 101/63 114/57 L Blood Pressure Mean 81 75 76 Pulse Ox 98 99 98 Oxygen Delivery Method Room Air Nasal Cannula Nasal Cannula Oxygen Flow Rate (L/min) 2 2 MDM MDM MDM Narrative Medical decision making narrative: Patient is a 89-year-old female who presented to the emergency department the chief complaint of anemia. On the differential diagnose includes but not limited to iron deficiency anemia, GI bleed, bowel obstruction, ileus. Once workup is obtained reviewed she will be reevaluated. Patient's CBC was reviewed showed white blood count of 7.7, hemoglobin originally was noted to be 6.2 this was repeated is noted be 7.3 therefore blood products were held, sodium normal 141, calcium normal 3.6, creatinine was noted be 0.83. Patient's AST and ALT were 36 and 25 respectively lipase normal at 21. Patient urinalysis showed no evidence of infection. Patient CT abdomen pelvis with IV contrast reviewed showed findings suggestive of status post gastric pull-through examination with the stomach in the right hemithorax. Distended urinary bladder minimal biliary ductal dilation. Rectal exam was performed she had black stool noted on exam this was Hemoccult positive she was given 40 mg IV Protonix. Will discuss case with hospitalist for admission for upper GI bleed concerns. Discussed case with hospitalist who accept patient for admission. Patient was notified as well as family at bedside all question concerns answered. Lab Data Labs: Laboratory Results - last 24 hr 08/02/24 08/02/24 13:55 14:55 WBC 7.7 RBC 2.11 L Hgb 7.3 L Hct 21.3 L MCV 100.9 H MCH 34.6 H MCHC 34.3 RDW Std Deviation 50.4 H RDW Coeff of Tamera 15.9 H Plt Count 263 MPV 8.9 Immature Gran % (Auto) 0.500 Neut % (Auto) 70.8 H Lymph % (Auto) 19.7 [place] % (Auto) 7.2 Eos % (Auto) 1.4 Baso % (Auto) 0.4 Absolute Neuts (auto) 5.4 Absolute Lymphs (auto) 1.51 Nucleated RBC % 0 Sodium 141 Potassium 3.6 Chloride 98 Carbon Dioxide 34.9 H Anion Gap 8 BUN 18 Creatinine 0.83 Estim Creat Clear Calc 33.65 L Est GFR (MDRD) Non-Af 68 BUN/Creatinine Ratio 21.5 H Glucose 114 H Calcium 9.7 Total Bilirubin 0.80 AST 36 H ALT 25 Alkaline Phosphatase 75 Total Protein 5.8 L Albumin 3.0 L Globulin 2.8 Albumin/Globulin Ratio 1.1 Lipase 21 Urine Color Straw Urine Clarity Clear Urine pH 7.0 Ur Specific [place] 1.010 Urine Protein Negative Urine Glucose (UA) Normal Urine Ketones Negative Urine Occult Blood Negative Urine Nitrite Negative Urine Bilirubin Negative Urine Urobilinogen Normal Ur Leukocyte Esterase Negative Urine RBC 0-5 SEEN Urine WBC 0-5 SEEN Ur Squamous Epith Cells 0-5 SEEN Urine Bacteria 0 SEEN Urine Mucus 0 SEEN Blood Type O POSITIVE Crossmatch See Detail Radiography Diagnostic Testing: Clinical Impression(s) from Imaging Studies Abdomen/Pelvis CT 08/02/24 14:09 IMPRESSION: 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 Distended urinary bladder. Minimal intrahepatic biliary ductal dilatation. Reading Location: [facility] Discharge Plan Triage Chief Complaint: Abn Labs Other Complaint: Confusion ED Provider: Jamie Beltrán Dx/Rx/DC Orders Clinical Impression: GI bleed, Anemia, Altered mental status Prescriptions: No Action Ensure Liquid 8 ml PO DAILY bupropion HCl 150 mg tablet extended release 24 hr 150 mg PO DAILY calcium carbonate [Calcium 500] 500 mg calcium (1,250 mg) tablet,chewable 500 mg PO DAILY doxazosin [Cardura] 2 mg tablet 2 mg PO DAILY Fiber Gummies 2 gram tablet,chewable 5 g PO DAILY fluticasone propionate [24 Hour Allergy Relief] 50 mcg/actuation spray,suspension 1 spray intranasal DAILY Rx Instructions: administer into each nostril isosorbide mononitrate 30 mg tablet extended release 24 hr 30 mg PO DAILY mirtazapine 30 mg tablet 30 mg PO QHS montelukast 10 mg tablet 10 mg PO QHS multivitamin [Daily Multi-Vitamin] Tablet 1 tab PO DAILY pantoprazole 40 mg tablet,delayed release (DR/EC) 40 mg PO DAILY potassium chloride [K-Tab] 20 mEq tablet extended release 20 meq PO DAILY Ultimate Xuan Probiotic 30 billion cell capsule,delayed release(DR/EC) 1 cap PO DAILY azelastine 137 mcg (0.1 %) aerosol,spray 1 spray intranasal BID Rx Instructions: administer into each nostril gabapentin 600 mg tablet 600 mg PO BID metoprolol tartrate 25 mg tablet 25 mg PO BID acetaminophen [Tylenol] 325 mg capsule 500 mg PO BID guaifenesin [Chest Congestion Relief] 100 mg/5 mL liquid 200 mg PO Q8 dicyclomine 10 mg capsule 10 mg PO Q6H atorvastatin 40 mg Tablet 40 mg PO QHS 20 Days Qty: 30 2RF cetirizine 5 mg tablet 5 mg PO DAILY ferrous sulfate 325 mg (65 mg iron) tablet 325 mg PO DAILY Fiber Select Gummies 2-100 gram-mcg tablet,chewable PO Primary Care Provider: Kam Ocampo Sr. Referrals: Kam Ocampo Sr., DO [Primary Care Provider] - Print Language: Cymraes Disposition Disposition: Acute Care [facility]
[2024-08-02 15:07] LABS: Bacteria 0 SEEN /hpf (None Seen); Mucous, Urine 0 SEEN /hpf (<or=2+)
[2024-08-02 15:12] LABS: Color, Urine Straw (Yellow); Glucose, Dipstick Normal (Normal); Ketone-Dipstick Negative (Negative); Leukocyte Esterase-Dipstick Negative /ul (Negative); Nitrite-Dipstick Negative (Negative); Occult Blood-Urine Negative /ul (Negative); Protein-Dipstick Negative (Negative); Urine Bilirubin Dipstick Negative (Negative); Urine Clarity Clear (Clear); Urine Urobilinogen Normal (Normal)
[2024-08-02 15:44] LABS: Red Blood Cells-Urine 0-5 SEEN /hpf (0-5); Squamous Epithelial Cells - UA 0-5 SEEN /hpf (5-10); White Blood Cells 0-5 SEEN /hpf (0-5)
[2024-08-02] MEDS: Pantoprazole Sodium 40 MG in 0.9% Normal Saline (100mL MB+) 100 ML 300 MG IV (16:57)
[2024-08-02] MEDS: Acetaminophen 500 MG Tablet 1000 MG PO (17:07)
--- NOTE | 2024-08-02 17:18 | CASEMGMT ---
Social Work SW met with patient and patients son and confirmed that patient will be returning to [facility] when medically ready. No further needs identified at this time. Stefani Coates, PURSE SEINING HAND, MANAGER PHARMACEUTICAL
--- NOTE | 2024-08-02 17:18 | CASEMGMT ---
Social Work SW met with patient and patients son and confirmed that patient will be returning to [facility] when medically ready. No further needs identified at this time. Stefani Coates, LEVEL VIAL SEALER, CAR ATTENDANT
--- NOTE | 2024-08-02 17:20 | PCM.HP.STD ---
HPI - General General Date of Admission: 08/02/24 Date of Service: 08/02/24 Chief Complaint: Low hgb HPI Narrative KATHERINE SEPULVEDA, is a 89-year-old female with a history of TIA, hypertension, iron deficiency anemia, hip fracture repair last week, depression, GERD who presented to [facility] ED 08/02/2024 with concerns for low hemoglobin. Son at bedside also reported she had been more confused recently though had been doing well after she had her right hip replacement about a week ago. In the ED patient afebrile, heart rate 85 with a blood pressure 115/53, respiratory rate 16 and pulse ox 97% on room air. Hemoglobin 7.3 with a baseline around 10 and CMP without evidence of endorgan damage, UA does not appear infectious. CT abdomen obtained which showed findings suggestive of gastric pull-through with stomach and right hemithorax and distended urinary bladder. Rectal exam in the ED appeared black and Hemoccult was positive. Patient typed and crossed and started on PPI and hospitalist contacted admission. Patient evaluated at bedside with son present. Patient seemed to be confused and was an unreliable historian so history obtained primarily from the son, he reports overall she had been fairly normal mental status on Thursday, he did not see her yesterday, but today she is very far from baseline and notes she usually gets like this when she has urinary tract infections. She did have right hip surgery recently and reports some right hip pain, unable to get any other specific ROS. Son does note that she has a history of abdominal surgeries and hiatal hernia but it has been at least since 2018 since she has had any surgeries or interventions. [facility] Medical History TIA (transient ischemic attack) Personal history of other diseases of digestive system Noninfective gastroenteritis and colitis, unspecified Essential hypertension Diaphragmatic hernia without obstruction or gangrene Constipation, unspecified Atherosclerotic heart disease of [place] coronary artery without angina pectoris Other specified disorders of white blood cells Other lack of coordination Hyperthyroidism Gout, unspecified Difficulty in walking, not elsewhere classified Depression, unspecified Calculus of gallbladder and bile duct without cholecystitis without obstruction Age-related physical debility Hypertension Home Medications ?Medication ?Instructions ?Recorded ?Last Taken ?Type Lactobacillus-Bifidobacterium 30 1 cap PO DAILY 10/30/22 Unknown History billion cell capsule,delayed release (Ultimate Xuan Probiotic) acetaminophen 325 mg capsule 650 mg PO BID pain 10/30/22 Unknown History (Tylenol) azelastine 137 mcg (0.1 %) nasal 1 spray intranasal BID 10/30/22 Unknown History spray bupropion HCl 150 mg 24 hr tablet, 150 mg PO DAILY 10/30/22 Unknown History extended release calcium carbonate (Calcium 500) 500 mg PO DAILY 10/30/22 Unknown History dicyclomine 10 mg capsule 10 mg PO Q6H 10/30/22 Unknown History doxazosin 2 mg tablet (Cardura) 2 mg PO DAILY 10/30/22 10/30/22 History fluticasone propionate 50 1 spray intranasal DAILY 10/30/22 Unknown History mcg/actuation nasal spray,suspension (24 Hour Allergy Relief) food supplemt, lactose-reduced 8 ml PO DAILY 10/30/22 Unknown History (Ensure oral liquid) gabapentin 600 mg tablet 600 mg PO BID 10/30/22 Unknown History inulin 2 gram chewable tablet 5 g PO DAILY 10/30/22 Unknown History (Fiber Gummies) isosorbide mononitrate 30 mg 30 mg PO DAILY 10/30/22 Unknown History tablet,extended release 24 hr metoprolol tartrate 25 mg tablet 25 mg PO BID 10/30/22 Unknown History mirtazapine 30 mg tablet 30 mg PO QHS 10/30/22 Unknown History montelukast 10 mg tablet 10 mg PO QHS 10/30/22 Unknown History multivitamin (Daily Multi-Vitamin 1 tab PO DAILY 10/30/22 Unknown History tablet) pantoprazole 40 mg tablet,delayed 40 mg PO DAILY 10/30/22 Unknown History release potassium chloride 20 mEq 20 meq PO DAILY 10/30/22 Unknown History tablet,extended release (K-Tab) atorvastatin 40 mg tablet 40 mg PO QHS 20 days #30 tabs 11/02/22 Unknown Rx ascorbic acid (vitamin C) 500 mg 500 mg PO BID 08/02/24 Unknown History capsule budesonide 0.5 mg/2 mL suspension 0.5 mg inhalation BID 08/02/24 Unknown History for nebulization cetirizine 5 mg tablet 5 mg PO DAILY 08/02/24 Unknown History cholecalciferol (vitamin D3) 125 125 mcg PO DAILY 08/02/24 Unknown History mcg (5,000 unit) tablet (Vitamin D3) ferrous sulfate 325 mg (65 mg 325 mg PO DAILY 08/02/24 Unknown History iron) tablet inulin-chromium picolinate 2 1 tab PO DAILY 08/02/24 Unknown History gram-100 mcg chewable tablet (Fiber Select Gummies) ipratropium 0.5 mg-albuterol 3 mg 3 ml inhalation BID 08/02/24 Unknown History (2.5 mg base)/3 mL nebulization soln polyethylene glycol 3350 17 17 g PO BID 08/02/24 Unknown History gram/dose oral powder (Miralax) Allergy/AdvReac Type Severity Reaction Status Date / Time cephalexin Allergy NEEDS Verified 08/02/24 16:18 FOLLOW-UP clarithromycin Allergy NEEDS Verified 08/02/24 16:18 FOLLOW-UP clindamycin Allergy NEEDS Verified 08/02/24 16:18 FOLLOW-UP doxazosin Allergy NEEDS Verified 11/06/22 16:25 FOLLOW-UP erythromycin base Allergy NEEDS Verified 08/02/24 16:18 FOLLOW-UP eszopiclone Allergy NEEDS Verified 08/02/24 16:18 FOLLOW-UP Fish Containing Products Allergy NEEDS Verified 08/02/24 16:18 FOLLOW-UP fish derived Allergy NEEDS Verified 08/02/24 16:18 FOLLOW-UP lincomycin Allergy NEEDS Verified 08/02/24 16:18 FOLLOW-UP lorazepam Allergy NEEDS Verified 08/02/24 16:18 FOLLOW-UP NSAIDS (Non-Steroidal Allergy NEEDS Verified 08/02/24 16:18 Anti-Inflamma FOLLOW-UP Penicillins Allergy NEEDS Verified 08/02/24 16:18 FOLLOW-UP rofecoxib Allergy NEEDS Verified 08/02/24 16:18 FOLLOW-UP salicylates Allergy NEEDS Verified 08/02/24 16:18 FOLLOW-UP temazepam Allergy NEEDS Verified 08/02/24 16:18 FOLLOW-UP Tetracyclines Allergy NEEDS Verified 08/02/24 16:18 FOLLOW-UP trazodone Allergy NEEDS Verified 08/02/24 16:18 FOLLOW-UP mushroom (mushrooms) AdvReac Food Unverified 08/02/24 16:18 Allergy Surgical History Presence of aortocoronary bypass graft Social History Smoking Status: Never smoker ROS ROS Narrative Unable to obtain full ROS given patient mental status, does report right hip pain, seems to deny any shortness of breath or cough, unable to really elicit any further definitive history aside from possibly some GERD symptoms Vital Signs Vital Signs Vital Signs: 08/02/24 13:04 08/02/24 13:06 08/02/24 13:06 Temperature 99 F 98.6 F Temperature Source Oral Oral Pulse Rate 85 81 Respiratory Rate 16 14 Respiratory Effort Normal Respiratory Pattern Normal Blood Pressure 115/53 L 119/41 L Blood Pressure Mean 73 67 Pulse Ox 97 99 Oxygen Delivery Method Room Air Oxygen Flow Rate (L/min) 08/02/24 14:09 08/02/24 15:00 08/02/24 16:00 Temperature 98.7 F Temperature Source Oral Pulse Rate 86 80 82 Respiratory Rate 18 15 15 Respiratory Effort Respiratory Pattern Blood Pressure 114/65 101/63 114/57 L Blood Pressure Mean 81 75 76 Pulse Ox 98 99 98 Oxygen Delivery Method Room Air Nasal Cannula Nasal Cannula Oxygen Flow Rate (L/min) 2 2 08/02/24 17:00 08/02/24 17:09 Temperature 98.7 F Temperature Source Pulse Rate 84 84 Respiratory Rate 22 H 22 H Respiratory Effort Respiratory Pattern Blood Pressure 135/49 H 135/49 H Blood Pressure Mean 77 77 Pulse Ox 100 100 Oxygen Delivery Method Nasal Cannula Oxygen Flow Rate (L/min) 2 Weight Weight: 51.7 kg Body Mass Index (BMI) 22.2 Physical Exam Narrative General: Awake, appears little bit tired, has difficulty answering questions structurally and seems confused HEENT: Normocephalic Eyes: Anicteric, normal conjunctiva, extraocular movements grossly intact Neck: Supple Respiratory: Clear to auscultation bilaterally, normal respiratory effort Cardiovascular: Regular rate and rhythm GI: Soft, nontender, nondistended Extremities: No edema Musculoskeletal: Moving all extremities in bed Neuro: Patient seems confused Skin: No rashes appreciated Psych: Attempts to be cooperative Results Lab / Micro Data 08/02/24 13:55 08/02/24 13:55 Labs: Laboratory Results - last 24 hr 08/02/24 13:55: WBC 7.7, RBC 2.11 L, Hgb 7.3 L, Hct 21.3 L, MCV 100.9 H, MCH 34.6 H, MCHC 34.3, RDW Std Deviation 50.4 H, RDW Coeff of [place] 15.9 H, Plt Count 263, MPV 8.9, Immature Gran % (Auto) 0.500, Neut % (Auto) 70.8 H, Lymph % (Auto) 19.7, [place] % (Auto) 7.2, Eos % (Auto) 1.4, Baso % (Auto) 0.4, Absolute Neuts (auto) 5.4, Absolute Lymphs (auto) 1.51, Nucleated RBC % 0, Sodium 141, Potassium 3.6, Chloride 98, Carbon Dioxide 34.9 H, Anion Gap 8, BUN 18, Creatinine 0.83, Estim Creat Clear Calc 33.65 L, Est GFR (MDRD) Non-Af 68, BUN/Creatinine Ratio 21.5 H, Glucose 114 H, Calcium 9.7, Total Bilirubin 0.80, AST 36 H, ALT 25, Alkaline Phosphatase 75, Total Protein 5.8 L, Albumin 3.0 L, Globulin 2.8, Albumin/Globulin Ratio 1.1, Lipase 21, Blood Type O POSITIVE, Antibody Screen TNP, Crossmatch See Detail 08/02/24 14:55: Urine Color Straw, Urine Clarity Clear, Urine pH 7.0, Ur Specific [place] 1.010, Urine Protein Negative, Urine Glucose (UA) Normal, Urine Ketones Negative, Urine Occult Blood Negative, Urine Nitrite Negative, Urine Bilirubin Negative, Urine Urobilinogen Normal, Ur Leukocyte Esterase Negative, Urine RBC 0-5 SEEN, Urine WBC 0-5 SEEN, Ur Squamous Epith Cells 0-5 SEEN, Urine Bacteria 0 SEEN, Urine Mucus 0 SEEN Micro: Microbiology 08/02/24 15:45 Stool Stool Occult Blood (AYAH) - Final Occult Blood Positive Imaging Radiology Impression Abdomen/Pelvis CT 08/02/24 14:09 IMPRESSION: 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 Distended urinary bladder. Minimal intrahepatic biliary ductal dilatation. Reading Location: [id number] Assessment & Plan Assessment/Plan (1) GI bleed: (2) Anemia: (3) Altered mental status: PLAN: Plan # Concern for GI bleed -Fecal occult positive - IV PPI - Trend H&H, hemoglobin 7.3 in the ED - Type and crossed - GI consult # Recent hip fracture repair - Will consult PT/OT - Supportive care # Distended urinary bladder - Will obtain postvoid - Schedule bowel regimen to verify regular BMs #Confusion - UA did not appear to have a UTI - Metabolic workup otherwise not overly significant -Unclear how long she has been on gabapentin but could certainly be medication related, will hold temporarily while assessing mental status - Will check B12, folate, ammonia #Depression/anxiety -Continue home medications #GERD -Continue PPI #DVT ppx: SCDs Janine Harrison MD Charges/Coding Visit Charges Inpatient E&M: 55074 Init Hosp L2
[2024-08-02 20:11] LABS: Hematocrit 24.2 % (37-47); Hemoglobin 8.1 g/dL (12.0-15.0)
[2024-08-02] MEDS: Ipratropium/Albuterol Sulfate 3 ML AMPUL.NEB INHALATION (20:16)
[2024-08-02] MEDS: Budesonide Respules 0.5 MG/2 ML AMPUL.NEB. INHALATION (20:16)
[2024-08-02 20:38] LABS: Ammonia 30.4 umol/L (11-51)
[2024-08-02 20:53] LABS: Vitamin B12 1365 pg/mL (180-914)
[2024-08-02] MEDS: Metoprolol Tartrate 25 MG Tablet PO (23:26)
[2024-08-02] MEDS: Atorvastatin Calcium 40 MG Tablet PO (23:27)
[2024-08-03] VITALS (10 sets, daily range): BP systolic 123–150; BP diastolic 51–76; PULSE 76–90; RESP 14–18; TEMP 36.8–37.2; O2SAT 90–98
[2024-08-03] MEDS: 0.9% Normal Saline (1000mL) 1,000 ML 50 ML IV (00:48)
[2024-08-03] MEDS: Pantoprazole Sodium 40 MG in 0.9% Normal Saline (100mL MB+) 100 ML 300 MG IV ×3 (00:49→23:22)
[2024-08-03] MEDS: 0.9% Saline Lock 10 ML Syringe IV ×2 (00:50→23:25)
[2024-08-03 02:00] LABS: Hematocrit 28.3 % (37-47); Hemoglobin 9.6 g/dL (12.0-15.0)
[2024-08-03] MEDS: MELATONIN 3 MG TABLET PO (02:00)
[2024-08-03] MEDS: Acetaminophen 325 MG Tablet 650 MG PO (02:00)
[2024-08-03] MEDS: Ipratropium/Albuterol Sulfate 3 ML AMPUL.NEB INHALATION ×2 (06:49→20:26)
[2024-08-03] MEDS: Budesonide Respules 0.5 MG/2 ML AMPUL.NEB. INHALATION ×2 (06:49→20:26)
[2024-08-03 07:02] LABS: Absolute Lymphocyte Count 1.69 X10^3/uL (0.83-4.51); Absolute Neutrophil Count 4.9 X10^3/uL (2.0-7.7); Basophil# 0.04 X10^3/uL; Basophil% 0.5 % (0-1); Eosinophil# 0.08 X10^3/uL; Eosinophils% 1.1 % (0-5); Hematocrit 27.9 % (37-47); Hemoglobin 9.6 g/dL (12.0-15.0); Lymphocyte # 1.69 X10^3/ul (0.83-4.51); Lymphocyte % 23.1 % (19-41); Mean Corp Hgb Conc 34.4 g/dL (32-36); Mean Corpuscular Volume 95.9 fL (81-99); Mean Platelet Vol. 8.9 fl (6.2-12.0); Monocyte# 0.59 X10^3/uL; Monocyte% 8.1 % (0-10); NRBC Flagged by Analyzer 0 % (0-5); Neutrophil # 4.87 X10^3/uL (2.7-7.7); Neutrophil % 66.5 % (47-70); Platelet Count 239 K/mm3 (150-450); RBC Distribution Width CV 15.8 % (11.6-14.6); RBC Distribution Width SD 48.7 fl (35.1-43.9); Red Blood Count 2.91 M/mm3 (4.2-5.4); White Blood Count 7.3 K/mm3 (4.4-11.0)
[2024-08-03 07:21] LABS: Anion Gap 11 (5-15); BUN 17 mg/dL (4-19); BUN/Creat Ratio 19.8 RATIO (10-20); Calcium,Total 9.5 mg/dL (7.6-11.0); Carbon Dioxide 31.1 mmol/L (21.0-32.0); Chloride 99 mmol/L (98-108); Creatinine, Serum 0.86 mg/dL (0.70-1.20); EST Glomerular Filtration Rate 65 (>60); Estimated Creatinine Clearance 1.09 ml/min (50-250); Glucose 94 mg/dL (70-99); Potassium 3.4 mmol/L (3.3-5.1); Sodium Level 140 mmol/L (133-145)
[2024-08-03 07:41] LABS: International Normalized Ratio 1.1; Prothrombin Time (Protime)PT. 14.6 SECONDS (11.7-14.9)
--- NOTE | 2024-08-03 08:47 | CASEMGMT ---
Discharge Planning Updates sent to [employer] with note asking if precert will be needed. Awaiting response. Virginia Angel DC Planning Asst.
--- NOTE | 2024-08-03 08:47 | CASEMGMT ---
Discharge Planning Updates sent to [employer] with note asking if precert will be needed. Awaiting response. Virginia Angel DC Planning Asst.
[2024-08-03] MEDS: Metoprolol Tartrate 25 MG Tablet PO ×2 (09:48→22:00)
--- NOTE | 2024-08-03 11:10 | CT_ITS ---
PROCEDURE: BRAIN/HEAD WITHOUT CONTRAST 08/03/2024 REASON FOR EXAM: AMS ON PLAVIX, EVAL FOR BLEED TECHNIQUE: BRAIN/HEAD WITHOUT CONTRAST Coronal and Sagittal reconstruction series were provided. One or more dose reduction techniques were used (e.g., Automated exposure control, adjustment of the mA and/or kV according to patient size, use of iterative reconstruction technique. RADIATION DOSE SUMMARY: CTDlvol: 44.99 mGy DLP: 812.98 mGycm COMPARISON: Prior study dated November 06, 2022. FINDINGS: Brain: Low density in the periventricular white matter suggests mild chronic small vessel ischemic changes. CSF Spaces: Mild generalized cerebral atrophy Sinuses/Mastoids: Clear at visualized levels Bones: Unremarkable CT/Brain/Head without Contrast IMPRESSION: NO ACUTE INTRACRANIAL HEMORRHAGE Chronic changes. Reading Location: [id number]
--- NOTE | 2024-08-03 11:10 | CT_ITS ---
PROCEDURE: PELVIS WITHOUT IV CONTRAST 08/03/2024 REASON FOR EXAM: RECENT R HIP ORIF, EVAL FOR POSTOP HEMATOMA TECHNIQUE: PELVIS WITHOUT IV CONTRAST One or more dose reduction techniques were used (e.g., Automated exposure control, adjustment of the mA and/or kV according to patient size, use of iterative reconstruction technique). RADIATION DOSE SUMMARY: CTDlvol: 12.5 mGy DLP: 477.46 mGycm COMPARISON: None FINDINGS: Bones: The patient is status post intramedullary kaleb fixation and compresses screw fixation of the right intertrochanteric fracture. There is good alignment. Hip Joints: Joint space narrowing. SI Joints: Degenerative changes. Soft Tissues: Postoperative soft tissue changes and edema. No definite localized hematoma is seen. CT/Pelvis without IV Contrast IMPRESSION: Status post right intertrochanteric fracture reduction with compression screw a nd kaleb fixation device. Postoperative soft tissue changes. No evidence of localized hematoma. Reading Location: [facility]
--- NOTE | 2024-08-03 11:10 | CT_ITS ---
PROCEDURE: BRAIN/HEAD WITHOUT CONTRAST 08/03/2024 REASON FOR EXAM: AMS ON PLAVIX, EVAL FOR BLEED TECHNIQUE: BRAIN/HEAD WITHOUT CONTRAST Coronal and Sagittal reconstruction series were provided. One or more dose reduction techniques were used (e.g., Automated exposure control, adjustment of the mA and/or kV according to patient size, use of iterative reconstruction technique. RADIATION DOSE SUMMARY: CTDlvol: 44.99 mGy DLP: 812.98 mGycm COMPARISON: Prior study dated November 06, 2022. FINDINGS: Brain: Low density in the periventricular white matter suggests mild chronic small vessel ischemic changes. CSF Spaces: Mild generalized cerebral atrophy Sinuses/Mastoids: Clear at visualized levels Bones: Unremarkable CT/Brain/Head without Contrast IMPRESSION: NO ACUTE INTRACRANIAL HEMORRHAGE Chronic changes. Reading Location: [id number]
--- NOTE | 2024-08-03 11:10 | CT_ITS ---
PROCEDURE: PELVIS WITHOUT IV CONTRAST 08/03/2024 REASON FOR EXAM: RECENT R HIP ORIF, EVAL FOR POSTOP HEMATOMA TECHNIQUE: PELVIS WITHOUT IV CONTRAST One or more dose reduction techniques were used (e.g., Automated exposure control, adjustment of the mA and/or kV according to patient size, use of iterative reconstruction technique). RADIATION DOSE SUMMARY: CTDlvol: 12.5 mGy DLP: 477.46 mGycm COMPARISON: None FINDINGS: Bones: The patient is status post intramedullary kaleb fixation and compresses screw fixation of the right intertrochanteric fracture. There is good alignment. Hip Joints: Joint space narrowing. SI Joints: Degenerative changes. Soft Tissues: Postoperative soft tissue changes and edema. No definite localized hematoma is seen. CT/Pelvis without IV Contrast IMPRESSION: Status post right intertrochanteric fracture reduction with compression screw a nd kaleb fixation device. Postoperative soft tissue changes. No evidence of localized hematoma. Reading Location: [facility]
[2024-08-03 11:17] LABS: Bedside Glucose 106 mg/dL (74-106)
--- NOTE | 2024-08-03 12:11 | PCM.PN.HOSP ---
Reason for Visit Reason for Visit: Diagnoses Anemia, unspecified (08/02/24) Gastrointestinal hemorrhage, unspecified (08/02/24) Altered mental status, unspecified (08/02/24) Subjective Subjective Saw patient at bedside this morning, son present. Patient was sitting back in bed and alert but was only oriented to person. She was making appropriate eye contact but did not answer any other questions appropriately for me. Told me that she was at school and could not tell me the month or year. Per the son, patient is typically alert and oriented x 3 at baseline and sharp mentally. Given patient is on Plavix and had acute on chronic anemia on admit, obtained CT brain and this was negative for acute pathology. Patient also had recent right hip fracture with moderate tenderness to palpation on exam today so CT hip was obtained to rule out postoperative hematoma and it was negative. Patient received 2 units of blood overnight and repeat hemoglobin went from 7.3 to 9.6. No other acute concerns at this time. Objective Data Objective Data Vital Signs: Vital Signs Temp Pulse Resp BP Pulse Ox O2 Del Method O2 Flow Rate 98.2 F 90 14 134/76 H 95 Nasal Cannula 2 08/03/24 08:18 08/03/24 09:48 08/03/24 08:18 08/03/24 08:18 08/03/24 08:18 08/03/24 08:18 08/03/24 08:18 Oxygen Flow Rate (L/min) 2 Oxygen Delivery Method Nasal Cannula Weight: 1.52 kg Body Mass Index (BMI) 0.0 Intake & Output: Intake and Output for Last 24 Hours 08/01/24 08/02/24 08/03/24 23:59 23:59 23:59 Intake Total 100 / 100 600 / 600 Output Total 550 / 550 350 / 350 Balance -450 / -450 250 / 250 Lab / Micro Data 08/03/24 15:30 08/03/24 06:50 Labs: Laboratory Results - last 24 hr 08/02/24 12:32: Hgb 8.1 L, Hct 24.2 L, Ammonia 30.4, Vitamin B12 1365 H, Serum Folate 35.60 H 08/02/24 13:55: WBC 7.7, RBC 2.11 L, Hgb 7.3 L, Hct 21.3 L, MCV 100.9 H, MCH 34.6 H, MCHC 34.3, RDW Std Deviation 50.4 H, RDW Coeff of [place] 15.9 H, Plt Count 263, MPV 8.9, Immature Gran % (Auto) 0.500, Neut % (Auto) 70.8 H, Lymph % (Auto) 19.7, [place] % (Auto) 7.2, Eos % (Auto) 1.4, Baso % (Auto) 0.4, Absolute Neuts (auto) 5.4, Absolute Lymphs (auto) 1.51, Nucleated RBC % 0, Sodium 141, Potassium 3.6, Chloride 98, Carbon Dioxide 34.9 H, Anion Gap 8, BUN 18, Creatinine 0.83, Estim Creat Clear Calc 33.65 L, Est GFR (MDRD) Non-Af 68, BUN/Creatinine Ratio 21.5 H, Glucose 114 H, Calcium 9.7, Total Bilirubin 0.80, AST 36 H, ALT 25, Alkaline Phosphatase 75, Total Protein 5.8 L, Albumin 3.0 L, Globulin 2.8, Albumin/Globulin Ratio 1.1, Lipase 21, Blood Type O POSITIVE, Antibody Screen POSITIVE H, Antibody Identification ANTI-M 08/02/24 13:55: Antibody Identification ANTI-M, Antigen Identification M ANTIGEN - NEGATIVE, Crossmatch See Detail 08/02/24 14:55: Urine Color Straw, Urine Clarity Clear, Urine pH 7.0, Ur Specific [place] 1.010, Urine Protein Negative, Urine Glucose (UA) Normal, Urine Ketones Negative, Urine Occult Blood Negative, Urine Nitrite Negative, Urine Bilirubin Negative, Urine Urobilinogen Normal, Ur Leukocyte Esterase Negative, Urine RBC 0-5 SEEN, Urine WBC 0-5 SEEN, Ur Squamous Epith Cells 0-5 SEEN, Urine Bacteria 0 SEEN, Urine Mucus 0 SEEN 08/03/24 01:55: Hgb 9.6 L, Hct 28.3 L 08/03/24 06:50: WBC 7.3, RBC 2.91 L, Hgb 9.6 L, Hct 27.9 L, MCV 95.9, MCH 33.0 H, MCHC 34.4, RDW Std Deviation 48.7 H, RDW Coeff of [place] 15.8 H, Plt Count 239, MPV 8.9, Immature Gran % (Auto) 0.700, Neut % (Auto) 66.5, Lymph % (Auto) 23.1, [place] % (Auto) 8.1, Eos % (Auto) 1.1, Baso % (Auto) 0.5, Absolute Neuts (auto) 4.9, Absolute Lymphs (auto) 1.69, Nucleated RBC % 0, PT 14.6, INR 1.1, Sodium 140, Potassium 3.4, Chloride 99, Carbon Dioxide 31.1, Anion Gap 11, BUN 17, Creatinine 0.86, Estim Creat Clear Calc 1.09 L*, Est GFR (MDRD) Non-Af 65, BUN/Creatinine Ratio 19.8, Glucose 94, Calcium 9.5 08/03/24 10:31: POC Glucose 106 Micro: Microbiology 08/02/24 15:45 Stool Stool Occult Blood (AYAH) - Final Occult Blood Positive Radiography Diagnostic Testing: Radiology Impression Abdomen/Pelvis CT 08/02/24 14:09 IMPRESSION: 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 Distended urinary bladder. Minimal intrahepatic biliary ductal dilatation. Reading Location: [id number] Brain CT 08/03/24 11:10 IMPRESSION: NO ACUTE INTRACRANIAL HEMORRHAGE Chronic changes. Reading Location: [id number] Pelvis CT 08/03/24 11:10 IMPRESSION: Status post right intertrochanteric fracture reduction with compression screw and kaleb fixation device. Postoperative soft tissue changes. No evidence of localized hematoma. Reading Location: [id number] Physical Exam Const alert, no apparent distress and average body habitus Constitutional Narrative: Elderly female, mildly fatigued appearing, sitting back in bed and making appropriate eye contact but only alert and oriented x 1 to person, not answering any other questions appropriately, otherwise in no acute distress. General Appearance: cooperative and comfortable HEENT normocephalic, head/scalp atraumatic, hearing grossly normal bilaterally, nasal mucous membranes and turbinates normal and moist oral mucous membranes Eyes PERRL, EOMs intact bilaterally and conjunctivae normal Neck full ROM Chest inspection of chest normal Resp normal respiratory effort, normal air movement, no use of accessory muscles and clear to auscultation bilaterally Cardio regular rate, regular rhythm, no murmurs and peripheral pulses 2+ throughout GI normal to inspection, nondistended, normoactive bowel sounds, soft to palpation, non-tender and non-distended Back/Spine normal ROM Extremity Extremity Narrative: Right hip with moderate tenderness to palpation but no significant bruising noted. Right leg with decreased range of motion. Skin no rashes or lesions noted Assessment & Plan Assessment/Plan (1) Anemia: (2) Altered mental status: PLAN: Plan Patient is an 89-year-old female who presented to [facility] ED on 08/02/2024 with altered mentation and low hemoglobin. 1. Acute on chronic anemia with concern for upper GI bleed, history of gastric pull-through procedure ? GI following. Hemoglobin 7.0 on admit. Had hemoglobin reading of 6.2 in chart but on redraw was 7.0. Hemoccult positive in the ED so there was concern for upper GI bleed. Notably hemoglobin dropped from 10.5 to 7.3 during recent hospitalization after right hip procedure noted below, so hemoglobin on admission was similar to previous. CT brain negative for bleed. CT hip with no concern for postoperative hematoma. Given 2 units of packed red blood cells with hemoglobin improvement to 9.6. Discussed with GI and does given history of gastric pull-through procedure, there is concern that she could have a slow upper GI bleed. Continue IV PPI twice daily for now. N.p.o. at midnight with plan for EGD tomorrow. 2. Acute metabolic encephalopathy ? Patient alert and oriented x 1 to person only on admit. Per family, is typically alert and oriented x 3 and mentally sharp. Unclear etiology for encephalopathy at this time. CT brain negative. Infectious workup negative to this point and patient noninfectious appearing. Continue to monitor and avoid sedating medications as able. 3. Recent right hip fracture s/p cephalomedullary nail placement with acute on chronic debility ? PT/OT/case management following. Recently hospitalized here from 07/25 to 07/29 for fall with right hip fracture. S/p right femur cephalomedullary nail placement on 07/26. Patient discharged to [facility] home and suspect she will need SNF placement again on this discharge. Appreciate therapy recommendations. 4. Chronic HFpEF, history of CAD with stenting, hypertension, hyperlipidemia, history of CVA, chronic hypoxic respiratory failure ? Hemodynamically stable on 2 L on admit. Was recently discharged on 2 L nasal cannula. Last echo in 2022 showed EF 70%, LA enlargement but no diastolic dysfunction, no valvular issues. Continue home statin, Lasix, doxazosin, Imdur, and Lopressor. Holding home Plavix as above. 5. Concern for urinary retention ? Patient with significant distended urinary bladder on CT on admit. However, has voided without issue since admission with postvoid residuals that are negligible. Continue doxazosin as above. 6. Anxiety/depression ? Stable. Continue home bupropion and mirtazapine. 7. GERD ? Continue home PPI. DVT prophylaxis: SCDs CODE STATUS: DNR CCA, DNI Expected disposition: Likely back to long term, TBD Total clinical time spent by myself addressing the patient's medical issues, reviewing all the data, and collaborating with patient's care team: 35 minutes. Charges/Coding Visit Charges Inpatient E&M: 40805 Subs Hosp L2
--- NOTE | 2024-08-03 15:37 | EX.PCM.CON.G ---
HPI Consult Data Date of Consult: 08/03/24 HPI Narrative Reason for Consultation: Anemia HPI Narrative: KATHERINE SEPULVEDA, is a 89 F who [id number] female with past medical history of TIA/CVA. She was admitted in 2022 for altered mental status. She received tenecteplase. She also has a history, hypertension, hypertension who presented to the emergency department with concern for low hemoglobin. She had a hip replacement done on the right side about a week ago and had been doing well. She has a chronic iron deficiency. Her hemoglobin was 10.2 and deccreased to 6mg/dl. Therefore, I consult as well and had given her iron replacement while in the hospital last time. 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 Distended urinary bladder. Minimal intrahepatic biliary ductal dilatation. [facility] Medical History TIA (transient ischemic attack) Personal history of other diseases of digestive system Noninfective gastroenteritis and colitis, unspecified Essential hypertension Diaphragmatic hernia without obstruction or gangrene Constipation, unspecified Atherosclerotic heart disease of [place]chan coronary artery without angina pectoris Other specified disorders of white blood cells Other lack of coordination Hyperthyroidism Gout, unspecified Difficulty in walking, not elsewhere classified Depression, unspecified Calculus of gallbladder and bile duct without cholecystitis without obstruction Age-related physical debility Hypertension Home Medications ?Medication ?Instructions ?Recorded ?Last Taken ?Type Lactobacillus-Bifidobacterium 30 1 cap PO DAILY 10/30/22 Unknown History billion cell capsule,delayed release (Ultimate Xuan Probiotic) acetaminophen 325 mg capsule 650 mg PO BID pain 10/30/22 Unknown History (Tylenol) azelastine 137 mcg (0.1 %) nasal 1 spray intranasal BID nasal spray 10/30/22 Unknown History spray Held on 08/02/24. Instructions: Order Completed bupropion HCl 150 mg 24 hr tablet, 150 mg PO DAILY 10/30/22 Unknown History extended release calcium carbonate (Calcium 500) 500 mg PO DAILY 10/30/22 Unknown History dicyclomine 10 mg capsule 10 mg PO Q6H digestive issues 10/30/22 Unknown History doxazosin 2 mg tablet (Cardura) 2 mg PO DAILY 10/30/22 10/30/22 History fluticasone propionate 50 1 spray intranasal DAILY 10/30/22 Unknown History mcg/actuation nasal spray,suspension (24 Hour Allergy Relief) food supplemt, lactose-reduced 8 ml PO DAILY 10/30/22 Unknown History (Ensure oral liquid) gabapentin 600 mg tablet 600 mg PO BID 10/30/22 Unknown History inulin 2 gram chewable tablet 5 g PO DAILY 10/30/22 Unknown History (Fiber Gummies) isosorbide mononitrate 30 mg 30 mg PO DAILY 10/30/22 Unknown History tablet,extended release 24 hr metoprolol tartrate 25 mg tablet 25 mg PO BID 10/30/22 Unknown History mirtazapine 30 mg tablet 30 mg PO QHS 10/30/22 Unknown History montelukast 10 mg tablet 10 mg PO QHS 10/30/22 Unknown History multivitamin (Daily Multi-Vitamin 1 tab PO DAILY 10/30/22 Unknown History tablet) pantoprazole 40 mg tablet,delayed 40 mg PO DAILY 10/30/22 Unknown History release potassium chloride 20 mEq 20 meq PO DAILY 10/30/22 Unknown History tablet,extended release (K-Tab) atorvastatin 40 mg tablet 40 mg PO QHS 20 days #30 tabs 11/02/22 Unknown Rx ascorbic acid (vitamin C) 500 mg 500 mg PO BID 08/02/24 Unknown History capsule budesonide 0.5 mg/2 mL suspension 0.5 mg inhalation BID 08/02/24 Unknown History for nebulization cetirizine 5 mg tablet 5 mg PO DAILY 08/02/24 Unknown History cholecalciferol (vitamin D3) 125 125 mcg PO DAILY 08/02/24 Unknown History mcg (5,000 unit) tablet (Vitamin D3) clopidogrel 75 mg tablet 75 mg PO DAILY blood thinner 08/02/24 Unknown History ferrous sulfate 325 mg (65 mg 325 mg PO DAILY 08/02/24 Unknown History iron) tablet furosemide 40 mg tablet 40 mg PO DAILY fluid retention 08/02/24 Unknown History inulin-chromium picolinate 2 1 tab PO DAILY 08/02/24 Unknown History gram-100 mcg chewable tablet (Fiber Select Gummies) ipratropium 0.5 mg-albuterol 3 mg 3 ml inhalation BID 08/02/24 Unknown History (2.5 mg base)/3 mL nebulization soln polyethylene glycol 3350 17 17 g PO BID 08/02/24 Unknown History gram/dose oral powder (Miralax) sennosides 8.6 mg-docusate sodium 1 tab PO DAILY constipation 08/02/24 Unknown History 50 mg tablet (Senexon-S) Allergy/AdvReac Type Severity Reaction Status Date / Time cephalexin Allergy NEEDS Verified 08/02/24 16:18 FOLLOW-UP clarithromycin Allergy NEEDS Verified 08/02/24 16:18 FOLLOW-UP clindamycin Allergy NEEDS Verified 08/02/24 16:18 FOLLOW-UP doxazosin Allergy NEEDS Verified 11/06/22 16:25 FOLLOW-UP erythromycin base Allergy NEEDS Verified 08/02/24 16:18 FOLLOW-UP eszopiclone Allergy NEEDS Verified 08/02/24 16:18 FOLLOW-UP Fish Containing Products Allergy NEEDS Verified 08/02/24 16:18 FOLLOW-UP fish derived Allergy NEEDS Verified 08/02/24 16:18 FOLLOW-UP lincomycin Allergy NEEDS Verified 08/02/24 16:18 FOLLOW-UP lorazepam Allergy NEEDS Verified 08/02/24 16:18 FOLLOW-UP NSAIDS (Non-Steroidal Allergy NEEDS Verified 08/02/24 16:18 Anti-Inflamma FOLLOW-UP Penicillins Allergy NEEDS Verified 08/02/24 16:18 FOLLOW-UP rofecoxib Allergy NEEDS Verified 08/02/24 16:18 FOLLOW-UP salicylates Allergy NEEDS Verified 08/02/24 16:18 FOLLOW-UP temazepam Allergy NEEDS Verified 08/02/24 16:18 FOLLOW-UP Tetracyclines Allergy NEEDS Verified 08/02/24 16:18 FOLLOW-UP trazodone Allergy NEEDS Verified 08/02/24 16:18 FOLLOW-UP mushroom (mushrooms) AdvReac Food Unverified 08/02/24 16:18 Allergy Surgical History Presence of aortocoronary bypass graft Social History Smoking Status: Never smoker ROS Constitutional Constitutional: Denies fatigue, fever(s), poor appetite, weight gain or weight loss Gastrointestinal Gastrointestinal: Denies belching, bloating, change in bowel habits, change in stool character, chewing difficulty, coffee ground emesis, constipation, cramping, diarrhea, dyspepsia, dysphagia, early satiety, excessive flatus, fecal incontinence, heartburn, hematemesis, hematochezia, hemorrhoids, loose stools, melena, nausea, odynophagia, rectal bleeding, tenesmus, vomiting or weight changes Physical Exam Const alert, oriented x3, no apparent distress and healthy appearing General Appearance: cooperative GI normal to inspection, nondistended, normoactive bowel sounds, soft to palpation, non-tender and non-distended Percussion: normal to percussion Rectal Exam: deferred Lab / Micro Data 08/03/24 06:50 08/03/24 06:50 Labs: Laboratory Results - last 24 hr 08/02/24 12:32: Hgb 8.1 L, Hct 24.2 L, Ammonia 30.4, Vitamin B12 1365 H, Serum Folate 35.60 H 08/02/24 13:55: Blood Type O POSITIVE, Antibody Screen POSITIVE H, Antibody Identification ANTI-M 08/02/24 13:55: Antibody Identification ANTI-M, Antigen Identification M ANTIGEN - NEGATIVE, Crossmatch See Detail 08/02/24 14:55: Urine RBC 0-5 SEEN, Urine WBC 0-5 SEEN, Ur Squamous Epith Cells 0-5 SEEN, Urine Bacteria 0 SEEN, Urine Mucus 0 SEEN 08/03/24 01:55: Hgb 9.6 L, Hct 28.3 L 08/03/24 06:50: WBC 7.3, RBC 2.91 L, Hgb 9.6 L, Hct 27.9 L, MCV 95.9, MCH 33.0 H, MCHC 34.4, RDW Std Deviation 48.7 H, RDW Coeff of Tamera 15.8 H, Plt Count 239, MPV 8.9, Immature Gran % (Auto) 0.700, Neut % (Auto) 66.5, Lymph % (Auto) 23.1, [place] % (Auto) 8.1, Eos % (Auto) 1.1, Baso % (Auto) 0.5, Absolute Neuts (auto) 4.9, Absolute Lymphs (auto) 1.69, Nucleated RBC % 0, PT 14.6, INR 1.1, Sodium 140, Potassium 3.4, Chloride 99, Carbon Dioxide 31.1, Anion Gap 11, BUN 17, Creatinine 0.86, Estim Creat Clear Calc 1.09 L*, Est GFR (MDRD) Non-Af 65, BUN/Creatinine Ratio 19.8, Glucose 94, Calcium 9.5 08/03/24 10:31: POC Glucose 106 Micro: Microbiology 08/02/24 15:45 Stool Stool Occult Blood (AYAH) - Final Occult Blood Positive Imaging Radiology Impression Brain CT 08/03/24 11:10 IMPRESSION: NO ACUTE INTRACRANIAL HEMORRHAGE Chronic changes. Reading Location: [id number] Pelvis CT 08/03/24 11:10 IMPRESSION: Status post right intertrochanteric fracture reduction with compression screw and kaleb fixation device. Postoperative soft tissue changes. No evidence of localized hematoma. Reading Location: [id number] Assessment & Plan Assessment/Plan (1) Anemia: (2) GI bleed: PLAN: 89-year-old with past medical history of coronary artery disease status post CABG on Plavix, iron deficiency anemia on iron, acute CVA status post tPA treatment arrives with decrease in hemoglobin. Apparently she had some type of surgery on her upper GI tract requiring a gastric pull-through. Her hemoglobin went down to 4 grams and came back up after transfusion. This is the reason why she came in the hospital initially due to decrease in hemoglobin. I think she should at least have an upper endoscopy to evaluate upper GI tract for signs of acute on chronic GI blood loss in the setting of iron deficiency anemia in a patient on iron therapy. Currently at this time she has been worked up for altered mental status by primary team. When patient is medically stable we can pursue endoscopy. Charges/Coding Visit Charges Inpatient E&M: 44263 Init Hosp L3
[2024-08-03 15:56] LABS: Hematocrit 32.2 % (37-47); Mean Corp Hgb Conc 34.2 g/dL (32-36); Mean Corpuscular Hgb 32.9 pg (27.0-32.0); Mean Corpuscular Volume 96.4 fL (81-99); Platelet Count 297 K/mm3 (150-450); RBC Distribution Width CV 16.4 % (11.6-14.6); RBC Distribution Width SD 49.8 fl (35.1-43.9); Red Blood Count 3.34 M/mm3 (4.2-5.4); White Blood Count 8.9 K/mm3 (4.4-11.0)
[2024-08-03] MEDS: Montelukast 10 MG Tablet PO (22:00)
[2024-08-03] MEDS: Gabapentin 600 MG Tablet PO (22:01)
[2024-08-03] MEDS: Mirtazapine 30 MG Tablet PO (22:01)
[2024-08-03] MEDS: Atorvastatin Calcium 40 MG Tablet PO (22:01)
[2024-08-04] VITALS (16 sets, daily range): BP systolic 84–156; BP diastolic 39–93; PULSE 72–97; RESP 12–18; TEMP 36.1–37.2; O2SAT 77–97; BMI 22.2
[2024-08-04 05:49] LABS: Mean Corp Hgb Conc 34.4 g/dL (32-36); Mean Corpuscular Hgb 33.6 pg (27.0-32.0); Mean Corpuscular Volume 97.9 fL (81-99); Mean Platelet Vol. 8.7 fl (6.2-12.0); Platelet Count 286 K/mm3 (150-450); RBC Distribution Width CV 16.7 % (11.6-14.6); RBC Distribution Width SD 50.4 fl (35.1-43.9); Red Blood Count 3.27 M/mm3 (4.2-5.4); White Blood Count 7.8 K/mm3 (4.4-11.0)
[2024-08-04 06:11] LABS: International Normalized Ratio 1.1; Partial Thromboplast Time 29.9 Seconds (24.1-36.2); Prothrombin Time (Protime)PT. 14.1 SECONDS (11.7-14.9)
[2024-08-04 06:29] LABS: BUN 12 mg/dL (4-19); Creatinine, Serum 0.74 mg/dL (0.70-1.20); Glucose 98 mg/dL (70-99)
[2024-08-04 06:30] LABS: Anion Gap 12 (5-15); BUN/Creat Ratio 15.8 RATIO (10-20); Calcium,Total 9.4 mg/dL (7.6-11.0); Carbon Dioxide 29.5 mmol/L (21.0-32.0); Chloride 102 mmol/L (98-108); EST Glomerular Filtration Rate 78 (>60); Estimated Creatinine Clearance 34.91 ml/min (50-250); Potassium 3.4 mmol/L (3.3-5.1); Sodium Level 143 mmol/L (133-145)
[2024-08-04] MEDS: Budesonide Respules 0.5 MG/2 ML AMPUL.NEB. INHALATION (07:04)
[2024-08-04] MEDS: Ipratropium/Albuterol Sulfate 3 ML AMPUL.NEB INHALATION (07:04)
[2024-08-04] MEDS: Senna/Docusate Sodium 1 Tablet 2 TABLET PO (08:13)
[2024-08-04] MEDS: Doxazosin 1 MG Tablet 2 MG PO (08:13)
[2024-08-04] MEDS: Isosorbide Mononitrate 30 MG Tablet PO (08:14)
[2024-08-04] MEDS: Metoprolol Tartrate 25 MG Tablet PO ×2 (08:14→21:22)
[2024-08-04] MEDS: Furosemide 40 MG Tablet PO (08:15)
[2024-08-04] MEDS: Cholecalciferol (Vit D3) 125 MCG CAPSULE (5,000 UNITS) PO (08:15)
[2024-08-04] MEDS: buPROPion (XL) 150 MG TABLET.XL PO (08:15)
[2024-08-04] MEDS: Gabapentin 600 MG Tablet PO ×2 (08:19→21:22)
[2024-08-04] MEDS: Pantoprazole Sodium 40 MG in 0.9% Normal Saline (100mL MB+) 100 ML 300 MG IV (08:20)
--- NOTE | 2024-08-04 11:49 | CASEMGMT ---
Addendum entered by Virginia Angel 08/05/24 09:16: [facility] has updated pts precert and it is good through 08/09/24. SW udpated. Virginia Angel DC Planning Asst. Original Note: Discharge Planning Updates sent to [facility]. Per admissions, pt will need a new precert if she returns after 08/05. Virginia Angel DC Planning Asst.
--- NOTE | 2024-08-04 11:49 | CASEMGMT ---
Addendum entered by Virginia Angel 08/05/24 09:16: [facility] has updated pts precert and it is good through 08/09/24. SW udpated. Virginia Angel DC Planning Asst. Original Note: Discharge Planning Updates sent to [facility]. Per admissions, pt will need a new precert if she returns after 08/05. Virginia Angel DC Planning Asst.
--- NOTE | 2024-08-04 15:23 | NURSING ---
pt down for egd. daughter in law uzair notified pt went for egd.
--- NOTE | 2024-08-04 15:23 | NURSING ---
pt down for egd. daughter in law uzair notified pt went for egd.
--- NOTE | 2024-08-04 15:53 | PCM.PRE.AN2 ---
ASA Classification* ASA Classification ASA Classification: 3 and E Assessment & Plan Anesthesia* Anesthesia Assessment Anesthesia Assessment: Discussed sedation and/or anesthesia options, risks, benefits, and alternatives with patient/parents/legal guardian/POA. Questions invited. The patient/parents/legal guardian/POA seems to understand and agrees to proceed with anesthesia plan. Reviewed the physical assessment, medical history, allergy history and patient home medications list prior to surgery/procedure/anesthetic and documented any changes. Performed airway and anesthesia risk assessments. Anesthesia Type Anesthesia Type: MAC History Source History Obtained from:: Patient, Chart, Parent/ Guardian and Poor Historian (pt answering most questions appropriately) Anesthesia Focused Assessment* Temperature: 99 F Pulse Rate: 85 Blood Pressure: 103/49 Respiratory Rate: 16 Pulse Ox: 92 Oxygen Flow Rate (L/min): 2 Airway Assessment Mouth opens: >3 cm Mallampati Score: IV Teeth Condition: Missing (multiple on bottom, no loose teeth) Neck Range of motion (ROM): Full ROM Labs Anesthesia Preop lab: CBC WBC 7.8 K/mm3 (4.4-11.0) 08/04/24 05:08/04/24 RBC 3.27 M/mm3 (4.2-5.4) L 08/04/24 05:28 08/04/24 Hgb 11.0 g/dL (12.0-15.0) L 08/04/24 05:28 08/04/24 Hct 32.0 % (37-47) L 08/04/24 05:28 08/04/24 Plt Count 286 K/mm3 (150-450) 08/04/24 05:28 08/04/24 CHEMISTRY Potassium 3.4 mmol/L (3.3-5.1) 08/04/24 05:28 08/04/24 Sodium 143 mmol/L (133-145) 08/04/24 05:08/04/24 Phosphorus 3.6 mg/dL (2.5-4.9) 09/02/23 05:02 09/02/23 BUN 12 mg/dL (4-19) 08/04/24 05:08/04/24 Creatinine 0.74 mg/dL (0.70-1.20) 08/04/24 05:08/04/24 Glucose 98 mg/dL (70-99) 08/04/24 05:28 08/04/24 POC Glucose 106 mg/dL (74-106) 08/03/24 10:31 08/03/24 TSH 1.990 uIU/mL (0.300-4.200) 08/04/24 05:28 08/04/24 COAG PT 14.1 SECONDS (11.7-14.9) 08/04/24 05:28 08/04/24 Pre-Assessment Diagnosis/Proposed Procedure Planned Operative Procedure(s): EGD, possible cautery Anesthesia History 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 When Was Last Pacemaker Check QUESTION #4 FULL TEXT: You/Your Family Experience fever (hyperthermia) with Anesthesia Last Oral Intake Last Oral intake: Last Oral Intake NPO since 00:00 08/04/24 15:25 Meds taken in AM with sips of Yes 08/04/24 15:25 water? Meds patient instructed to see 08/04/24 15:25 take am of surgery PONV PONV - orthodontic lab technician: PONV - orthodontic lab technician Female HX of Motion Sickness HX of N/V After Surgery Non-Smoker Duration of Surgery greater than 60 minutes Number of Risk Factors PONV Score Height & Weight Height & Weight: Anesthesia: Height & Weight Height 5 ft 08/04/24 15:25 Weight: 51.7 kg 08/04/24 15:25 Body Mass Index (BMI) 22.2 08/04/24 15:25 Respiratory Assessment Respiratory Assessment - orthodontic lab technician: Respiratory Tract Infection Hx - orthodontic lab technician Hx Respiratory Tract Infection No 08/04/24 15:15 STOP Sleep Apnea STOP Sleep Apnea - orthodontic lab technician: STOP Sleep Apnea - orthodontic lab technician Hx Hypertension Yes 08/03/24 12:16 Hx Sleep Apnea No 10/30/22 22:55 CPAP BIPAP Do you snore loudly (louder than talking or can be heard Do you often feel tired/ fatigued/ sleepy during daytime? Has anyone observed you stop breathing during sleep? STOP Results QUESTION #5 FULL TEXT : Do you snore loudly (louder than talking or can be heard through closed doors)? 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 Specify any problems Hx of Preganancy in last 3 Months Nurse Filling Out Transfusion & Questions: Date: Time: Patient unable to answer at this time (ie. confused, unrespo /Reproduction History /Reproductive History - orthodontic lab technician: /Reproductive Hx- orthodontic lab technician Hx Now No 08/04/24 15:15 Gestational Age (in weeks): EDC: Hx Hx Para Hx Section SAB No 08/04/24 15:15 Active Medications Active Medications: Current Medications Generic Name Dose Route Start Last Admin Trade Name Freq PRN Reason Stop Dose Admin Acetaminophen 650 mg 08/02/24 18:50 08/03/24 02:00 Acetaminophen 325 Mg Tablet PO 650 mg Q6H PRN PRN Administration Pain 1-10 Or Fever >100.7 Albuterol Sulfate 2.5 mg 08/02/24 18:50 Albuterol 2.5 Mg/3 Ml Vial.Neb. INHALATION Q2H PRN PRN SOB &/OR WHEEZING Albuterol/Ipratropium 3 ml 08/02/24 22:00 08/04/24 07:04 Ipratropium/Albuterol Sulfate 3 Ml Ampul.Neb INHALATION 3 ml BID.RT HUMBERTO Administration Atorvastatin Calcium 40 mg 08/02/24 22:00 08/03/24 22:01 Atorvastatin Calcium 40 Mg Tablet PO 40 mg QHS HUMBERTO Administration Budesonide 0.5 mg 08/02/24 22:00 08/04/24 07:04 Budesonide Respules 0.5 Mg/2 Ml Ampul.Neb. INHALATION 0.5 mg BID.RT HUMBERTO Administration Bupropion HCl 150 mg 08/03/24 10:00 08/04/24 08:15 Bupropion (Xl) 150 Mg Tablet.Xl PO 150 mg DAILY HUMBERTO Administration Cholecalciferol 125 mcg 08/03/24 10:00 08/04/24 08:15 Cholecalciferol (Vit D3) 125 Mcg Capsule (5,000 Units) PO 125 mcg DAILY HUMBERTO Administration Doxazosin Mesylate 2 mg 08/03/24 10:00 08/04/24 08:13 Doxazosin 1 Mg Tablet PO 2 mg DAILY HUMBERTO Administration Furosemide 40 mg 08/04/24 10:00 08/04/24 08:15 Furosemide 40 Mg Tablet PO 40 mg DAILY HUMBERTO Administration Protocol Gabapentin 600 mg 08/03/24 10:00 08/04/24 08:19 Gabapentin 600 Mg Tablet PO 600 mg BID HUMBERTO Administration Pantoprazole Sodium 40 mg/ 100 mls @ 300 mls/hr 08/02/24 22:00 08/04/24 08:42 Sodium Chloride IV Infused Q12 HUMBERTO Infusion Sodium Chloride 250 mls @ 15 mls/hr 08/03/24 18:51 IV .[id number] PRN Saline Flush Sodium Chloride 250 mls @ 15 mls/hr 08/03/24 18:51 IV .[id number] PRN Additional IVPB Infusion Lactated Ringer's 1,000 mls @ 15 mls/hr 08/04/24 15:45 IV .Q48H HUMBERTO Isosorbide Mononitrate 30 mg 08/03/24 10:00 08/04/24 08:14 Isosorbide Mononitrate 30 Mg Tablet PO 30 mg DAILY HUMBERTO Administration Protocol Loratadine 10 mg 08/03/24 10:00 08/04/24 08:24 Loratadine 10 Mg Tablet PO Not Given DAILY HUMBERTO Melatonin 3 mg 08/02/24 18:50 08/03/24 02:00 Melatonin 3 Mg Tablet PO 3 mg QHS PRN PRN Administration INSOMNIA Metoprolol Tartrate 25 mg 08/02/24 22:00 08/04/24 08:14 Metoprolol Tartrate 25 Mg Tablet PO 25 mg BID HUMBERTO Administration Protocol Mirtazapine 30 mg 08/02/24 22:00 08/03/24 22:01 Mirtazapine 30 Mg Tablet PO 30 mg QHS [facility] Administration Montelukast Sodium 10 mg 08/03/24 22:00 08/03/24 22:00 Montelukast 10 Mg Tablet PO 10 mg QHS HUMBERTO Administration Multivitamins 1 tablet 08/03/24 10:00 08/04/24 08:24 Multivitamins,Therapeutic [facility] Ond[facility] HCl 4 mg 08/02/24 18:50 Ondansetron 4 Mg/2 Ml Vial IV Q8H PRN PRN NAUSEA/VOMITING Oxycodone HCl 2.5 mg 08/02/24 18:50 Oxycodone 5 Mg Tablet PO Q4H PRN PRN Pain Score 4-10 Senna/Docusate Sodium 2 tablet 08/02/24 22:00 08/04/24 08:13 Senna/Docusate Sodium 1 Tablet PO 2 tablet BID HUMBERTO Administration Sodium Chloride 10 - 40 ml 08/02/24 18:33 08/03/24 23:25 0.9% Saline Lock 10 Ml Syringe IV 10 ml UD PRN Administration SALINE FLUSH Sodium Chloride 10 - 40 ml 08/03/24 18:51 0.9% Saline Lock 10 Ml Syringe IV UD PRN SALINE FLUSH [facility] Medical History (Updated 08/04/24 @ 11:26 by Steph Mccollum) TIA (transient ischemic attack) Personal history of other diseases of digestive system Noninfective gastroenteritis and colitis, unspecified Essential hypertension Diaphragmatic hernia without obstruction or gangrene Constipation, unspecified Atherosclerotic heart disease of [place] coronary artery without angina pectoris Other specified disorders of white blood cells Other lack of coordination Hyperthyroidism Gout, unspecified Difficulty in walking, not elsewhere classified Depression, unspecified Calculus of gallbladder and bile duct without cholecystitis without obstruction Age-related physical debility Hypertension Polyneuropathy PVD (peripheral vascular disease) Osteoporosis Hypothyroidism GERD (gastroesophageal reflux disease) Hypertensive heart and chronic kidney disease stage 3 Anxiety Asthma Sleep apnea COPD (chronic obstructive pulmonary disease) Gout CKD (chronic kidney disease) stage 3, GFR 30-59 ml/min Major depressive disorder CHF (congestive heart failure) Home Medications ?Medication ?Instructions ?Recorded ?Last Taken ?Type Lactobacillus-Bifidobacterium 30 1 cap PO DAILY 10/30/22 Unknown History billion cell capsule,delayed release (Ultimate Xuan Probiotic) acetaminophen 325 mg capsule 650 mg PO BID pain 10/30/22 Unknown History (Tylenol) azelastine 137 mcg (0.1 %) nasal 1 spray intranasal BID nasal spray 10/30/22 Unknown History spray Held on 08/02/24. Instructions: Order Completed bupropion HCl 150 mg 24 hr tablet, 150 mg PO DAILY 10/30/22 Unknown History extended release calcium carbonate (Calcium 500) 500 mg PO DAILY 10/30/22 Unknown History dicyclomine 10 mg capsule 10 mg PO Q6H digestive issues 10/30/22 Unknown History doxazosin 2 mg tablet (Cardura) 2 mg PO DAILY 10/30/22 10/30/22 History fluticasone propionate 50 1 spray intranasal DAILY 10/30/22 Unknown History mcg/actuation nasal spray,suspension (24 Hour Allergy Relief) food supplemt, lactose-reduced 8 ml PO DAILY 10/30/22 Unknown History (Ensure oral liquid) gabapentin 600 mg tablet 600 mg PO BID 10/30/22 Unknown History inulin 2 gram chewable tablet 5 g PO DAILY 10/30/22 Unknown History (Fiber Gummies) isosorbide mononitrate 30 mg 30 mg PO DAILY 10/30/22 Unknown History tablet,extended release 24 hr metoprolol tartrate 25 mg tablet 25 mg PO BID 10/30/22 Unknown History mirtazapine 30 mg tablet 30 mg PO QHS 10/30/22 Unknown History montelukast 10 mg tablet 10 mg PO QHS 10/30/22 Unknown History multivitamin (Daily Multi-Vitamin 1 tab PO DAILY 10/30/22 Unknown History tablet) pantoprazole 40 mg tablet,delayed 40 mg PO DAILY 10/30/22 Unknown History release potassium chloride 20 mEq 20 meq PO DAILY 10/30/22 Unknown History tablet,extended release (K-Tab) atorvastatin 40 mg tablet 40 mg PO QHS 20 days #30 tabs 11/02/22 Unknown Rx atorvastatin 40 mg tablet 40 mg PO DAILY hyperlipidemia 07/25/24 Unknown History azelastine 137 mcg (0.1 %) nasal intranasal allergies 07/25/24 Unknown History spray budesonide 0.5 mg/2 mL suspension mg copy chief 07/25/24 Unknown History for nebulization bupropion HCl 150 mg 24 hr tablet, 150 mg PO DAILY . 07/25/24 Unknown History extended release cetirizine 5 mg tablet 5 mg PO DAILY . 07/25/24 Unknown History clopidogrel 75 mg tablet 75 mg PO DAILY . 07/25/24 Unknown History Held on 07/28/24. Instructions: Hold while taking Eliquis for 1 month. dicyclomine 10 mg capsule 10 mg PO TID . 07/25/24 Unknown History doxazosin 2 mg tablet 2 mg PO DAILY . 07/25/24 Unknown History gabapentin 100 mg capsule PO . 07/25/24 Unknown History ipratropium 0.5 mg-albuterol 3 mg ml . 07/25/24 Unknown History (2.5 mg base)/3 mL nebulization soln isosorbide mononitrate 30 mg 30 mg PO DAILY . 07/25/24 Unknown History tablet,extended release 24 hr metoprolol tartrate 25 mg tablet 25 mg PO BID . 07/25/24 Unknown History mirtazapine 30 mg tablet 30 mg PO QHS . 07/25/24 Unknown History montelukast 10 mg tablet 10 mg PO DAILY . 07/25/24 Unknown History multivitamin with folic acid 400 1 tab PO DAILY . 07/25/24 Unknown History mcg tablet (Daily-Carmelo (with folic acid)) pantoprazole 40 mg tablet,delayed 40 mg PO DAILY . 07/25/24 Unknown History release potassium chloride 20 mEq 20 meq PO DAILY . 07/25/24 Unknown History tablet,extended release(part/cryst) acetaminophen 500 mg tablet 1,000 mg (2 x 500 mg) PO Q8 #0 tabs 07/28/24 Unknown Rx apixaban 5 mg tablet (Eliquis) 2.5 mg (1/2 x 5 mg) PO BID #0 tabs 07/28/24 Unknown Rx ascorbic acid (vitamin C) 500 mg 500 mg PO BID #60 tabs 07/28/24 Unknown Rx tablet calcium carbonate 500 mg (2.5 x 200 mg calcium (500 07/28/24 Unknown Rx mg)) PO TIDCM #0 tabs cholecalciferol (vitamin D3) 125 125 mcg PO DAILY #0 caps 07/28/24 Unknown Rx mcg (5,000 unit) capsule ferrous sulfate 325 mg (65 mg 325 mg PO DAILY 30 days #30 tabs 07/28/24 Unknown Rx iron) tablet (FeroSul) furosemide 40 mg tablet 40 mg PO DAILY #0 tabs 07/28/24 Unknown Rx polyethylene glycol 3350 17 17 g PO BID 1 month #1,020 grams 07/28/24 Unknown Rx gram/dose oral powder (Miralax) sennosides 8.6 mg-docusate sodium 2 tab PO BID #0 tabs 07/28/24 Unknown Rx 50 mg tablet (Stimulant Laxative Plus) ascorbic acid (vitamin C) 500 mg 500 mg PO BID 08/02/24 Unknown History capsule budesonide 0.5 mg/2 mL suspension 0.5 mg inhalation BID 08/02/24 Unknown History for nebulization cetirizine 5 mg tablet 5 mg PO DAILY 08/02/24 Unknown History cholecalciferol (vitamin D3) 125 125 mcg PO DAILY 08/02/24 Unknown History mcg (5,000 unit) tablet (Vitamin D3) clopidogrel 75 mg tablet 75 mg PO DAILY blood thinner 08/02/24 Unknown History ferrous sulfate 325 mg (65 mg 325 mg PO DAILY 08/02/24 Unknown History iron) tablet furosemide 40 mg tablet 40 mg PO DAILY fluid retention 08/02/24 Unknown History inulin-chromium picolinate 2 1 tab PO DAILY 08/02/24 Unknown History gram-100 mcg chewable tablet (Fiber Select Gummies) ipratropium 0.5 mg-albuterol 3 mg 3 ml inhalation BID 08/02/24 Unknown History (2.5 mg base)/3 mL nebulization soln polyethylene glycol 3350 17 17 g PO BID 08/02/24 Unknown History gram/dose oral powder (Miralax) sennosides 8.6 mg-docusate sodium 1 tab PO DAILY constipation 08/02/24 Unknown History 50 mg tablet ([place]-S) Allergy/AdvReac Type Severity Reaction Status Date / Time cephalexin Allergy PT UNSURE Verified 08/04/24 11:26 OF REACTION clarithromycin Allergy PT UNSURE Verified 08/04/24 11:26 OF REACTION clindamycin Allergy PT UNSURE Verified 08/04/24 11:26 OF REACTION doxazosin Allergy NEEDS Verified 08/04/24 11:26 FOLLOW-UP erythromycin base Allergy PT UNSURE Verified 08/04/24 11:26 OF REACTION eszopiclone Allergy PT UNSURE Verified 08/04/24 11:26 OF REACTION Fish Containing Products Allergy PT UNSURE Verified 08/04/24 11:26 (seafood) OF REACTION fish derived Allergy PT UNSURE Verified 08/04/24 11:26 OF REACTION lincomycin Allergy PT UNSURE Verified 08/04/24 11:26 OF REACTION lorazepam Allergy PT UNSURE Verified 08/04/24 11:26 OF REACTION mushroom (mushrooms) Allergy PT UNSURE Verified 08/04/24 11:26 OF REACTION NSAIDS (Non-Steroidal Allergy PT UNSURE Verified 08/04/24 11:26 Anti-Inflamma OF REACTION Penicillins Allergy PT UNSURE Verified 08/04/24 11:26 OF REACTION rofecoxib Allergy PT UNSURE Verified 08/04/24 11:26 OF REACTION salicylates Allergy PT UNSURE Verified 08/04/24 11:26 OF REACTION temazepam Allergy PT UNSURE Verified 08/04/24 11:26 OF REACTION Tetracyclines Allergy PT UNSURE Verified 08/04/24 11:26 OF REACTION trazodone Allergy PT UNSURE Verified 08/04/24 11:26 OF REACTION Surgical History (Updated 08/04/24 @ 11:26 by Steph Mccollum) Presence of aortocoronary bypass graft History of cataract surgery History of lysis of adhesions Hx of hysterectomy Hx of total knee replacement Presence of aortocoronary bypass graft Social History (System 08/04/24 @ 11:26 by Steph Mccollum) Smoking Status: Never smoker Review of Systems (Anesthesia) ROS Narrative System reviewed and no additional complaints, except as documented. Physical Exam Const Orientation / Consciousness: confused Neck full ROM Resp normal respiratory effort
--- NOTE | 2024-08-04 15:53 | PCM.PRE.AN2 ---
ASA Classification* ASA Classification ASA Classification: 3 and E Assessment & Plan Anesthesia* Anesthesia Assessment Anesthesia Assessment: Discussed sedation and/or anesthesia options, risks, benefits, and alternatives with patient/parents/legal guardian/POA. Questions invited. The patient/parents/legal guardian/POA seems to understand and agrees to proceed with anesthesia plan. Reviewed the physical assessment, medical history, allergy history and patient home medications list prior to surgery/procedure/anesthetic and documented any changes. Performed airway and anesthesia risk assessments. Anesthesia Type Anesthesia Type: MAC History Source History Obtained from:: Patient, Chart, Parent/ Guardian and Poor Historian (pt answering most questions appropriately) Anesthesia Focused Assessment* Temperature: 99 F Pulse Rate: 85 Blood Pressure: 103/49 Respiratory Rate: 16 Pulse Ox: 92 Oxygen Flow Rate (L/min): 2 Airway Assessment Mouth opens: >3 cm Mallampati Score: IV Teeth Condition: Missing (multiple on bottom, no loose teeth) Neck Range of motion (ROM): Full ROM Labs Anesthesia Preop lab: CBC WBC 7.8 K/mm3 (4.4-11.0) 08/04/24 05:08/04/24 RBC 3.27 M/mm3 (4.2-5.4) L 08/04/24 05:28 08/04/24 Hgb 11.0 g/dL (12.0-15.0) L 08/04/24 05:28 08/04/24 Hct 32.0 % (37-47) L 08/04/24 05:28 08/04/24 Plt Count 286 K/mm3 (150-450) 08/04/24 05:28 08/04/24 CHEMISTRY Potassium 3.4 mmol/L (3.3-5.1) 08/04/24 05:28 08/04/24 Sodium 143 mmol/L (133-145) 08/04/24 05:08/04/24 Phosphorus 3.6 mg/dL (2.5-4.9) 09/02/23 05:02 09/02/23 BUN 12 mg/dL (4-19) 08/04/24 05:08/04/24 Creatinine 0.74 mg/dL (0.70-1.20) 08/04/24 05:08/04/24 Glucose 98 mg/dL (70-99) 08/04/24 05:28 08/04/24 POC Glucose 106 mg/dL (74-106) 08/03/24 10:31 08/03/24 TSH 1.990 uIU/mL (0.300-4.200) 08/04/24 05:28 08/04/24 COAG PT 14.1 SECONDS (11.7-14.9) 08/04/24 05:28 08/04/24 Pre-Assessment Diagnosis/Proposed Procedure Planned Operative Procedure(s): EGD, possible cautery Anesthesia History 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 When Was Last Pacemaker Check QUESTION #4 FULL TEXT: You/Your Family Experience fever (hyperthermia) with Anesthesia Last Oral Intake Last Oral intake: Last Oral Intake NPO since 00:00 08/04/24 15:25 Meds taken in AM with sips of Yes 08/04/24 15:25 water? 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 Has anyone observed you stop breathing during sleep? STOP Results QUESTION #5 FULL TEXT : Do you snore loudly (louder than talking or can be heard through closed doors)? 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 Specify any problems Hx of Preganancy in last 3 Months Nurse Filling Out Transfusion & Questions: Date: Time: Patient unable to answer at this time (ie. confused, unrespo /Reproduction History /Reproductive History - acid purification equipment operator: /Reproductive Hx- acid purification equipment operator Hx Now No 08/04/24 15:15 Gestational Age (in weeks): EDC: Hx Hx Para Hx Section SAB No 08/04/24 15:15 Active Medications Active Medications: Current Medications Generic Name Dose Route Start Last Admin Trade Name Freq PRN Reason Stop Dose Admin Acetaminophen 650 mg 08/02/24 18:50 08/03/24 02:00 Acetaminophen 325 Mg Tablet PO 650 mg Q6H PRN PRN Administration Pain 1-10 Or Fever >100.7 Albuterol Sulfate 2.5 mg 08/02/24 18:50 Albuterol 2.5 Mg/3 Ml Vial.Neb. INHALATION Q2H PRN PRN SOB &/OR WHEEZING Albuterol/Ipratropium 3 ml 08/02/24 22:00 08/04/24 07:04 Ipratropium/Albuterol Sulfate 3 Ml Ampul.Neb INHALATION 3 ml BID.RT HUMBERTO Administration Atorvastatin Calcium 40 mg 08/02/24 22:00 08/03/24 22:01 Atorvastatin Calcium 40 Mg Tablet PO 40 mg QHS HUMBERTO Administration Budesonide 0.5 mg 08/02/24 22:00 08/04/24 07:04 Budesonide Respules 0.5 Mg/2 Ml Ampul.Neb. INHALATION 0.5 mg BID.RT HUMBERTO Administration Bupropion HCl 150 mg 08/03/24 10:00 08/04/24 08:15 Bupropion (Xl) 150 Mg Tablet.Xl PO 150 mg DAILY HUMBERTO Administration Cholecalciferol 125 mcg 08/03/24 10:00 08/04/24 08:15 Cholecalciferol (Vit D3) 125 Mcg Capsule (5,000 Units) PO 125 mcg DAILY HUMBERTO Administration Doxazosin Mesylate 2 mg 08/03/24 10:00 08/04/24 08:13 Doxazosin 1 Mg Tablet PO 2 mg DAILY HUMBERTO Administration Furosemide 40 mg 08/04/24 10:00 08/04/24 08:15 Furosemide 40 Mg Tablet PO 40 mg DAILY HUMBERTO Administration Protocol Gabapentin 600 mg 08/03/24 10:00 08/04/24 08:19 Gabapentin 600 Mg Tablet PO 600 mg BID HUMBERTO Administration Pantoprazole Sodium 40 mg/ 100 mls @ 300 mls/hr 08/02/24 22:00 08/04/24 08:42 Sodium Chloride IV Infused Q12 HUMBERTO Infusion Sodium Chloride 250 mls @ 15 mls/hr 08/03/24 18:51 IV .[id number] PRN Saline Flush Sodium Chloride 250 mls @ 15 mls/hr 08/03/24 18:51 IV .[id number] PRN Additional IVPB Infusion Lactated Ringer's 1,000 mls @ 15 mls/hr 08/04/24 15:45 IV .Q48H HUMBERTO Isosorbide Mononitrate 30 mg 08/03/24 10:00 08/04/24 08:14 Isosorbide Mononitrate 30 Mg Tablet PO 30 mg DAILY HUMBERTO Administration Protocol Loratadine 10 mg 08/03/24 10:00 08/04/24 08:24 Loratadine 10 Mg Tablet PO Not Given DAILY HUMBERTO Melatonin 3 mg 08/02/24 18:50 08/03/24 02:00 Melatonin 3 Mg Tablet PO 3 mg QHS PRN PRN Administration INSOMNIA Metoprolol Tartrate 25 mg 08/02/24 22:00 08/04/24 08:14 Metoprolol Tartrate 25 Mg Tablet PO 25 mg BID HUMBERTO Administration Protocol Mirtazapine 30 mg 08/02/24 22:00 08/03/24 22:01 Mirtazapine 30 Mg Tablet PO 30 mg QHS [facility] Administration Montelukast Sodium 10 mg 08/03/24 22:00 08/03/24 22:00 Montelukast 10 Mg Tablet PO 10 mg QHS HUMBERTO Administration Multivitamins 1 tablet 08/03/24 10:00 08/04/24 08:24 Multivitamins,Therapeutic Tablet [facility] Ondansetron HCl 4 mg 08/02/24 18:50 Ondansetron 4 Mg/2 Ml Vial IV Q8H PRN PRN NAUSEA/VOMITING Oxycodone HCl 2.5 mg 08/02/24 18:50 Oxycodone 5 Mg Tablet PO Q4H PRN PRN Pain Score 4-10 Senna/Docusate Sodium 2 tablet 08/02/24 22:00 08/04/24 08:13 Senna/Docusate Sodium 1 Tablet PO 2 tablet BID HUMBERTO Administration Sodium Chloride 10 - 40 ml 08/02/24 18:33 08/03/24 23:25 0.9% Saline Lock 10 Ml Syringe IV 10 ml UD PRN Administration SALINE FLUSH Sodium Chloride 10 - 40 ml 08/03/24 18:51 0.9% Saline Lock 10 Ml Syringe IV UD PRN SALINE FLUSH [facility] Medical History (Updated 08/04/24 @ 11:26 by Steph Mccollum) TIA (transient ischemic attack) Personal history of other diseases of digestive system Noninfective gastroenteritis and colitis, unspecified Essential hypertension Diaphragmatic hernia without obstruction or gangrene Constipation, unspecified Atherosclerotic heart disease of [place] coronary artery without angina pectoris Other specified disorders of white blood cells Other lack of coordination Hyperthyroidism Gout, unspecified Difficulty in walking, not elsewhere classified Depression, unspecified Calculus of gallbladder and bile duct without cholecystitis without obstruction Age-related physical debility Hypertension Polyneuropathy PVD (peripheral vascular disease) Osteoporosis Hypothyroidism GERD (gastroesophageal reflux disease) Hypertensive heart and chronic kidney disease stage 3 Anxiety Asthma Sleep apnea COPD (chronic obstructive pulmonary disease) Gout CKD (chronic kidney disease) stage 3, GFR 30-59 ml/min Major depressive disorder CHF (congestive heart failure) Home Medications ?Medication ?Instructions ?Recorded ?Last Taken ?Type Lactobacillus-Bifidobacterium 30 1 cap PO DAILY 10/30/22 Unknown History billion cell capsule,delayed release (Ultimate Xuan Probiotic) acetaminophen 325 mg capsule 650 mg PO BID pain 10/30/22 Unknown History (Tylenol) azelastine 137 mcg (0.1 %) nasal 1 spray intranasal BID nasal spray 10/30/22 Unknown History spray Held on 08/02/24. Instructions: Order Completed bupropion HCl 150 mg 24 hr tablet, 150 mg PO DAILY 10/30/22 Unknown History extended release calcium carbonate (Calcium 500) 500 mg PO DAILY 10/30/22 Unknown History dicyclomine 10 mg capsule 10 mg PO Q6H digestive issues 10/30/22 Unknown History doxazosin 2 mg tablet (Cardura) 2 mg PO DAILY 10/30/22 10/30/22 History fluticasone propionate 50 1 spray intranasal DAILY 10/30/22 Unknown History mcg/actuation nasal spray,suspension (24 Hour Allergy Relief) food supplemt, lactose-reduced 8 ml PO DAILY 10/30/22 Unknown History (Ensure oral liquid) gabapentin 600 mg tablet 600 mg PO BID 10/30/22 Unknown History inulin 2 gram chewable tablet 5 g PO DAILY 10/30/22 Unknown History (Fiber Gummies) isosorbide mononitrate 30 mg 30 mg PO DAILY 10/30/22 Unknown History tablet,extended release 24 hr metoprolol tartrate 25 mg tablet 25 mg PO BID 10/30/22 Unknown History mirtazapine 30 mg tablet 30 mg PO QHS 10/30/22 Unknown History montelukast 10 mg tablet 10 mg PO QHS 10/30/22 Unknown History multivitamin (Daily Multi-Vitamin 1 tab PO DAILY 10/30/22 Unknown History tablet) pantoprazole 40 mg tablet,delayed 40 mg PO DAILY 10/30/22 Unknown History release potassium chloride 20 mEq 20 meq PO DAILY 10/30/22 Unknown History tablet,extended release (K-Tab) atorvastatin 40 mg tablet 40 mg PO QHS 20 days #30 tabs 11/02/22 Unknown Rx atorvastatin 40 mg tablet 40 mg PO DAILY hyperlipidemia 07/25/24 Unknown History azelastine 137 mcg (0.1 %) nasal intranasal allergies 07/25/24 Unknown History spray budesonide 0.5 mg/2 mL suspension mg certified flex endoscope reprocessor 07/25/24 Unknown History for nebulization bupropion HCl 150 mg 24 hr tablet, 150 mg PO DAILY . 07/25/24 Unknown History extended release cetirizine 5 mg tablet 5 mg PO DAILY . 07/25/24 Unknown History clopidogrel 75 mg tablet 75 mg PO DAILY . 07/25/24 Unknown History Held on 07/28/24. Instructions: Hold while taking Eliquis for 1 month. dicyclomine 10 mg capsule 10 mg PO TID . 07/25/24 Unknown History doxazosin 2 mg tablet 2 mg PO DAILY . 07/25/24 Unknown History gabapentin 100 mg capsule PO . 07/25/24 Unknown History ipratropium 0.5 mg-albuterol 3 mg ml . 07/25/24 Unknown History (2.5 mg base)/3 mL nebulization soln isosorbide mononitrate 30 mg 30 mg PO DAILY . 07/25/24 Unknown History tablet,extended release 24 hr metoprolol tartrate 25 mg tablet 25 mg PO BID . 07/25/24 Unknown History mirtazapine 30 mg tablet 30 mg PO QHS . 07/25/24 Unknown History montelukast 10 mg tablet 10 mg PO DAILY . 07/25/24 Unknown History multivitamin with folic acid 400 1 tab PO DAILY . 07/25/24 Unknown History mcg tablet (Daily-Carmelo (with folic acid)) pantoprazole 40 mg tablet,delayed 40 mg PO DAILY . 07/25/24 Unknown History release potassium chloride 20 mEq 20 meq PO DAILY . 07/25/24 Unknown History tablet,extended release(part/cryst) acetaminophen 500 mg tablet 1,000 mg (2 x 500 mg) PO Q8 #0 tabs 07/28/24 Unknown Rx apixaban 5 mg tablet (Eliquis) 2.5 mg (1/2 x 5 mg) PO BID #0 tabs 07/28/24 Unknown Rx ascorbic acid (vitamin C) 500 mg 500 mg PO BID #60 tabs 07/28/24 Unknown Rx tablet calcium carbonate 500 mg (2.5 x 200 mg calcium (500 07/28/24 Unknown Rx mg)) PO TIDCM #0 tabs cholecalciferol (vitamin D3) 125 125 mcg PO DAILY #0 caps 07/28/24 Unknown Rx mcg (5,000 unit) capsule ferrous sulfate 325 mg (65 mg 325 mg PO DAILY 30 days #30 tabs 07/28/24 Unknown Rx iron) tablet (FeroSul) furosemide 40 mg tablet 40 mg PO DAILY #0 tabs 07/28/24 Unknown Rx polyethylene glycol 3350 17 17 g PO BID 1 month #1,020 grams 07/28/24 Unknown Rx gram/dose oral powder (Miralax) sennosides 8.6 mg-docusate sodium 2 tab PO BID #0 tabs 07/28/24 Unknown Rx 50 mg tablet (Stimulant Laxative Plus) ascorbic acid (vitamin C) 500 mg 500 mg PO BID 08/02/24 Unknown History capsule budesonide 0.5 mg/2 mL suspension 0.5 mg inhalation BID 08/02/24 Unknown History for nebulization cetirizine 5 mg tablet 5 mg PO DAILY 08/02/24 Unknown History cholecalciferol (vitamin D3) 125 125 mcg PO DAILY 08/02/24 Unknown History mcg (5,000 unit) tablet (Vitamin D3) clopidogrel 75 mg tablet 75 mg PO DAILY blood thinner 08/02/24 Unknown History ferrous sulfate 325 mg (65 mg 325 mg PO DAILY 08/02/24 Unknown History iron) tablet furosemide 40 mg tablet 40 mg PO DAILY fluid retention 08/02/24 Unknown History inulin-chromium picolinate 2 1 tab PO DAILY 08/02/24 Unknown History gram-100 mcg chewable tablet (Fiber Select Gummies) ipratropium 0.5 mg-albuterol 3 mg 3 ml inhalation BID 08/02/24 Unknown History (2.5 mg base)/3 mL nebulization soln polyethylene glycol 3350 17 17 g PO BID 08/02/24 Unknown History gram/dose oral powder (Miralax) sennosides 8.6 mg-docusate sodium 1 tab PO DAILY constipation 08/02/24 Unknown History 50 mg tablet (Senexon-S) Allergy/AdvReac Type Severity Reaction Status Date / Time cephalexin Allergy PT UNSURE Verified 08/04/24 11:26 OF REACTION clarithromycin Allergy PT UNSURE Verified 08/04/24 11:26 OF REACTION clindamycin Allergy PT UNSURE Verified 08/04/24 11:26 OF REACTION doxazosin Allergy NEEDS Verified 08/04/24 11:26 FOLLOW-UP erythromycin base Allergy PT UNSURE Verified 08/04/24 11:26 OF REACTION eszopiclone Allergy PT UNSURE Verified 08/04/24 11:26 OF REACTION Fish Containing Products Allergy PT UNSURE Verified 08/04/24 11:26 (seafood) OF REACTION fish derived Allergy PT UNSURE Verified 08/04/24 11:26 OF REACTION lincomycin Allergy PT UNSURE Verified 08/04/24 11:26 OF REACTION lorazepam Allergy PT UNSURE Verified 08/04/24 11:26 OF REACTION mushroom (mushrooms) Allergy PT UNSURE Verified 08/04/24 11:26 OF REACTION NSAIDS (Non-Steroidal Allergy PT UNSURE Verified 08/04/24 11:26 Anti-Inflamma OF REACTION Penicillins Allergy PT UNSURE Verified 08/04/24 11:26 OF REACTION rofecoxib Allergy PT UNSURE Verified 08/04/24 11:26 OF REACTION salicylates Allergy PT UNSURE Verified 08/04/24 11:26 OF REACTION temazepam Allergy PT UNSURE Verified 08/04/24 11:26 OF REACTION Tetracyclines Allergy PT UNSURE Verified 08/04/24 11:26 OF REACTION trazodone Allergy PT UNSURE Verified 08/04/24 11:26 OF REACTION Surgical History (Updated 08/04/24 @ 11:26 by Steph Mccollum) Presence of aortocoronary bypass graft History of cataract surgery History of lysis of adhesions Hx of hysterectomy Hx of total knee replacement Presence of aortocoronary bypass graft Social History (System 08/04/24 @ 11:26 by Steph Mccollum) Smoking Status: Never smoker Review of Systems (Anesthesia) ROS Narrative System reviewed and no additional complaints, except as documented. Physical Exam Const Orientation / Consciousness: confused Neck full ROM Resp normal respiratory effort
--- NOTE | 2024-08-04 16:11 | PN_ITS ---
Progress Note Patient has been n.p.o. for an upper endoscopy today. All questions concerns answered by the patient's son. Physical Exam Const alert, oriented x3, no apparent distress and healthy appearing General Appearance: cooperative GI normal to inspection, nondistended, normoactive bowel sounds, soft to palpation, non-tender and non-distended Percussion: normal to percussion Rectal Exam: deferred Assessment & Plan Assessment/Plan (1) Anemia: (2) GI bleed: PLAN: PLAN: 89-year-old with past medical history of coronary artery disease status post CABG on Plavix, iron deficiency anemia on iron, acute CVA status post tPA treatment arrives with decrease in hemoglobin. Apparently she had some type of surgery on her upper GI tract requiring a gastric pull-through. Her hemoglobin went down to 4 grams and came back up after transfusion. This is the reason why she came in the hospital initially due to decrease in hemoglobin. I think she should at least have an upper endoscopy to evaluate upper GI tract for signs of acute on chronic GI blood loss in the setting of iron deficiency anemia in a patient on iron therapy. Currently at this time she has been worked up for altered mental status by primary team. When patient is medically stable we can pursue endoscopy. PLAN: Plan 08/04/2024-patient will undergo an upper endoscopy. The patient's power of securities attorney her son was explained alternatives, risk and benefits include not withstanding bleeding, infection, sepsis, perforation, need for surgery . She will have an ASA 3. Visit Charges Inpatient E&M: 71139 [facility] L3
--- NOTE | 2024-08-04 16:11 | PN_ITS ---
Progress Note Patient has been n.p.o. for an upper endoscopy today. All questions concerns answered by the patient's son. Physical Exam Const alert, oriented x3, no apparent distress and healthy appearing General Appearance: cooperative GI normal to inspection, nondistended, normoactive bowel sounds, soft to palpation, non-tender and non-distended Percussion: normal to percussion Rectal Exam: deferred Assessment & Plan Assessment/Plan (1) Anemia: (2) GI bleed: PLAN: PLAN: 89-year-old with past medical history of coronary artery disease status post CABG on Plavix, iron deficiency anemia on iron, acute CVA status post tPA treatment arrives with decrease in hemoglobin. Apparently she had some type of surgery on her upper GI tract requiring a gastric pull-through. Her hemoglobin went down to 4 grams and came back up after transfusion. This is the reason why she came in the hospital initially due to decrease in hemoglobin. I think she should at least have an upper endoscopy to evaluate upper GI tract for signs of acute on chronic GI blood loss in the setting of iron deficiency anemia in a patient on iron therapy. Currently at this time she has been worked up for altered mental status by primary team. When patient is medically stable we can pursue endoscopy. PLAN: Plan 08/04/2024-patient will undergo an upper endoscopy. The patient's power of district attorney her son was explained alternatives, risk and benefits include not withstanding bleeding, infection, sepsis, perforation, need for surgery . She will have an ASA 3. Visit Charges Inpatient E&M: [id number] [facility] L3
--- NOTE | 2024-08-04 16:36 | PN.HOSP_ITS ---
Reason for Visit Reason for Visit: Diagnoses Anemia, unspecified (08/02/24) Gastrointestinal hemorrhage, unspecified (08/02/24) Altered mental status, unspecified (08/02/24) Objective Data Objective Data Vital Signs: Vital Signs Temp Pulse Resp BP Pulse Ox O2 Del Method O2 Flow Rate 99 F 85 16 103/49 L 92 Room Air 2 08/04/24 16:01 08/04/24 16:01 08/04/24 16:01 08/04/24 16:01 08/04/24 16:01 08/04/24 15:14 08/04/24 16:01 Oxygen Flow Rate (L/min) 2 Oxygen Delivery Method Room Air Weight: 113 lb 15.664 oz Body Mass Index (BMI) 22.2 Intake & Output: Intake and Output for Last 24 Hours 08/02/24 08/03/24 08/04/24 23:59 23:59 23:59 Intake Total 100 / 100 700 / 700 1100 / 1100 Output Total 550 / 550 700 / 900 400 / 400 Balance -450 / -450 0 / -200 700 / 700 Lab / Micro Data 08/04/24 05:28 08/04/24 05:28 Labs: Laboratory Results - last 24 hr 08/04/24 05:28: WBC 7.8, RBC 3.27 L, Hgb 11.0 L, Hct 32.0 L, MCV 97.9, MCH 33.6 H, MCHC 34.4, RDW Std Deviation 50.4 H, RDW Coeff of Tamera 16.7 H, Plt Count 286, MPV 8.7, PT 14.1, INR 1.1, APTT 29.9, Sodium 143, Potassium 3.4, Chloride 102, Carbon Dioxide 29.5, Anion Gap 12, BUN 12, Creatinine 0.74, Estim Creat Clear Calc 34.91 L, Est GFR (MDRD) Non-Af 78, BUN/Creatinine Ratio 15.8, Glucose 98, Calcium 9.4, TSH 1.990 Micro: Microbiology 08/02/24 14:55 Urine, Catheterized Urine Culture - Final Culture exhibits no growth. 08/02/24 15:45 Stool Stool Occult Blood (AYAH) - Final Occult Blood Positive Radiography Diagnostic Testing: Radiology Impression Abdomen/Pelvis CT 08/02/24 14:09 IMPRESSION: 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 Distended urinary bladder. Minimal intrahepatic biliary ductal dilatation. Reading Location: [id number] Brain CT 08/03/24 11:10 IMPRESSION: NO ACUTE INTRACRANIAL HEMORRHAGE Chronic changes. Reading Location: [facility] Pelvis CT 08/03/24 11:10 IMPRESSION: Status post right intertrochanteric fracture reduction with compression screw and kaleb fixation device. Postoperative soft tissue changes. No evidence of localized hematoma. Reading Location: [facility] Physical Exam Narrative Seen and examined. Patient is elderly lady with dementia and forgetfulness. She cannot recall her age but she told the date of and current month correctly. Her has passed. Physical exam General: Alert, Oriented x3, Cooperative. Not confused or not in delirium HEENT: Atraumatic, PERRLA, EOMI, Normocephalic. Oral: No Gingival or Mucosal Lesions/ Ulcerations Neck: Supple, No JVD, Negative Carotid Bruits Chest wall/Lungs: Air entry diminished in bilateral lung bases. No crepitation/rhonchi Cardiovascular: Regular rate and rhythm, Normal S1,S2, No M/G/R Abdomen: Bowel Sounds Present, Soft, Non Tender, Non-Distended : No dysuria. No renal angle tenderness. No suprapubic tenderness. Extremities: No edema, Capillary Refill Less than 3 Seconds Skin: No rashes, No breakdown Musculoskeletal: No Tenderness to Palpation of Joints or Extremities Neurological: Cranial nerves II-XII grossly intact, DTR 2+/4. No acute focal neurological deficit. Psych/Mental Status: Dementia. Assessment & Plan Assessment/Plan (1) GI bleed: (2) Anemia: PLAN: Plan Patient is an 89-year-old female who presented to [facility] [place] ED on 08/02/2024 with altered mentation and low hemoglobin. 1. Acute on chronic anemia with concern for upper GI bleed, history of gastric pull-through procedure ? GI following. Hemoglobin 7.0 on admit. Had hemoglobin reading of 6.2 in chart but on redraw was 7.0. Hemoccult positive in the ED so there was concern for upper GI bleed. Notably hemoglobin dropped from 10.5 to 7.3 during recent hospitalization after right hip procedure noted below, so hemoglobin on admission was similar to previous. CT brain negative for bleed. CT hip with no concern for postoperative hematoma. Given 2 units of packed red blood cells with hemoglobin improvement to 9.6. Discussed with GI and does given history of gastric pull-through procedure, there is concern that she could have a slow upper GI bleed. Continue IV PPI twice daily for now. N.p.o. at midnight with plan for EGD tomorrow. 08/04: Posttransfusion H&H 11/32%. Platelet count 200 86K, INR 1.1. Patient is not confused or delirious. Discussed with Dr. Kee and patient is well optimized for EGD. Stool for occult blood was positive. 2. Acute metabolic encephalopathy ? Patient alert and oriented x 1 to person only on admit. Per family, is typically alert and oriented x 3 and mentally sharp. Unclear etiology for encephalopathy at this time. CT brain negative. Infectious workup negative to this point and patient noninfectious appearing. Continue to monitor and avoid sedating medications as able. 08/04: Acute metabolic encephalopathy resolved. 3. Recent right hip fracture s/p cephalomedullary nail placement with acute on chronic debility ? PT/OT/case management following. Recently hospitalized here from 07/25 to 07/29 for fall with right hip fracture. S/p right femur cephalomedullary nail placement on 07/26. Patient discharged to [facility] and suspect she will need SNF placement again on this discharge. Appreciate therapy recommendations. 4. Chronic HFpEF, history of CAD with stenting, hypertension, hyperlipidemia, history of CVA, chronic hypoxic respiratory failure ? Hemodynamically stable on 2 L on admit. Was recently discharged on 2 L nasal cannula. Last echo in 2022 showed EF 70%, LA enlargement but no diastolic dysfunction, no valvular issues. Continue home statin, Lasix, doxazosin, Imdur, and Lopressor. Holding home Plavix as above. 5. Concern for urinary retention ? Patient with significant distended urinary bladder on CT on admit. However, has voided without issue since admission with postvoid residuals that are negligible. Continue doxazosin as above. 6. Anxiety/depression ? Stable. Continue home bupropion and mirtazapine. 7. GERD ? Continue home PPI. DVT prophylaxis: SCDs CODE STATUS: DNR CCA, DNI Expected disposition: Likely back to jail, TBD Microbiology Past 72 Hours 08/02/24 14:55 Urine, Catheterized Urine Culture - Final Culture exhibits no growth. 08/02/24 15:45 Stool Stool Occult Blood (AYAH) - Final Occult Blood Positive Laboratory Results 08/04/24 05:28: WBC 7.8, RBC 3.27 L, Hgb 11.0 L, Hct 32.0 L, MCV 97.9, MCH 33.6 H, MCHC 34.4, RDW Std Deviation 50.4 H, RDW Coeff of Tamera 16.7 H, Plt Count 286, MPV 8.7, PT 14.1, INR 1.1, APTT 29.9, Sodium 143, Potassium 3.4, Chloride 102, Carbon Dioxide 29.5, Anion Gap 12, BUN 12, Creatinine 0.74, Estim Creat Clear Calc 34.91 L, Est GFR (MDRD) Non-Af 78, BUN/Creatinine Ratio 15.8, Glucose 98, Calcium 9.4, TSH 1.990 Charges/Coding Visit Charges Inpatient E&M: 96444 Subs Hosp L2
--- NOTE | 2024-08-04 16:41 | PCM.POST.ANE ---
Anesthesia: Postop Eval I Current Vital Signs Temperature: 97 F Pulse Rate: 72 Blood Pressure: 94/44 Respiratory Rate: 14 Pulse Ox: 94 Oxygen Delivery Method: Nasal Cannula Oxygen Flow Rate (L/min): 2 Assessment Airway patent: Yes Spontaneous unlabored respirations: Yes Mental status: Awake and Calm nausea: No Vomiting: No Anesthesia Complication: No Fluid Hydration Crystalloid volume administer (ml): 100 Total IV fluid infused: 100 Progress Note Anesthesia document: Postop Eval 1 completed: Yes
--- NOTE | 2024-08-04 16:43 | OP.EGD_ITS ---
Patient Name: Karla Judge Procedure Date: 08/04/2024 4:10 PM Date of : 1935 Age: 89 Procedure: Upper GI endoscopy Indications: Iron deficiency anemia Providers: Nomi Kee DO Medicines: Monitored Anesthesia Care Patient Profile: This is an 89 year old female. Refer to note in patient chart for documentation of history and physical. Patient has symptoms. Complications: No immediate complications. Procedure: Pre-Anesthesia Assessment: - Prior to the procedure, a History and Physical was performed, and patient medications and allergies were reviewed. The patient is competent. The risks and benefits of the procedure and the sedation options and risks were discussed with the patient. All questions were answered and informed consent was obtained. Patient identification and proposed procedure were verified by the physician in the pre-procedure area. Mental Status Examination: alert and oriented. Airway Examination: normal oropharyngeal airway and neck mobility. Respiratory Examination: clear to auscultation. CV Examination: normal. Prophylactic Antibiotics: The patient does not require prophylactic antibiotics. Prior Anticoagulants: The patient has taken no anticoagulant or antiplatelet agents. ASA Grade Assessment: III - A patient with severe systemic disease. After reviewing the risks and benefits, the patient was deemed in satisfactory condition to undergo the procedure. The anesthesia plan was to use monitored anesthesia care (MAC). Immediately prior to administration of medications, the patient was re-assessed for adequacy to receive sedatives. The heart rate, respiratory rate, oxygen saturations, blood pressure, adequacy of pulmonary ventilation, and response to care were monitored throughout the procedure. The physical status of the patient was re-assessed after the procedure. After obtaining informed consent, the endoscope was passed under direct vision. Throughout the procedure, the patient's blood pressure, pulse, and oxygen saturations were monitored continuously. The gastroscope was introduced through the mouth, and advanced to the fourth part of the duodenum. Small bowel enteroscopy was deemed necessary. The upper GI endoscopy was accomplished without difficulty. The patient tolerated the procedure well. Scope In: 4:29:53 PM Scope Out: 4:33:44 PM Total Procedure Duration Time 0 hours 3 minutes 51 seconds Findings: The examined esophagus was normal. A large hiatal hernia was present. The exam of the duodenum was otherwise normal. Impression: - Normal esophagus. - Large hiatal hernia. - No specimens collected. Recommendation: - Discharge patient to home. - Resume previous diet. - Continue present medications. - [facility]. - Resume previous diet. - Continue present medications. Procedure Code(s): --- Professional --- 76378, Small intestinal endoscopy, enteroscopy beyond second portion of duodenum, not including ileum; diagnostic, including collection of specimen(s) by brushing or washing, when performed (separate procedure) CPT copyright 2021 [employer]. All rights reserved. The codes documented in this report are preliminary and upon stone cleaner review may be revised to meet current compliance requirements. Nomi Kee DO 08/04/2024 4:42:45 PM This report has been signed electronically. Number of Addenda: 0 Note Initiated On: 08/04/2024 4:10 PM
--- NOTE | 2024-08-04 16:43 | OP.EGD_ITS ---
Patient Name: Karla Judge Procedure Date: 08/04/2024 4:10 PM Date of : 1935 Age: 89 Procedure: Upper GI endoscopy Indications: Iron deficiency anemia Providers: Nomi Kee DO Medicines: Monitored Anesthesia Care Patient Profile: This is an 89 year old female. Refer to note in patient chart for documentation of history and physical. Patient has symptoms. Complications: No immediate complications. Procedure: Pre-Anesthesia Assessment: - Prior to the procedure, a History and Physical was performed, and patient medications and allergies were reviewed. The patient is competent. The risks and benefits of the procedure and the sedation options and risks were discussed with the patient. All questions were answered and informed consent was obtained. Patient identification and proposed procedure were verified by the physician in the pre-procedure area. Mental Status Examination: alert and oriented. Airway Examination: normal oropharyngeal airway and neck mobility. Respiratory Examination: clear to auscultation. CV Examination: normal. Prophylactic Antibiotics: The patient does not require prophylactic antibiotics. Prior Anticoagulants: The patient has taken no anticoagulant or antiplatelet agents. ASA Grade Assessment: III - A patient with severe systemic disease. After reviewing the risks and benefits, the patient was deemed in satisfactory condition to undergo the procedure. The anesthesia plan was to use monitored anesthesia care (MAC). Immediately prior to administration of medications, the patient was re-assessed for adequacy to receive sedatives. The heart rate, respiratory rate, oxygen saturations, blood pressure, adequacy of pulmonary ventilation, and response to care were monitored throughout the procedure. The physical status of the patient was re-assessed after the procedure. After obtaining informed consent, the endoscope was passed under direct vision. Throughout the procedure, the patient's blood pressure, pulse, and oxygen saturations were monitored continuously. The gastroscope was introduced through the mouth, and advanced to the fourth part of the duodenum. Small bowel enteroscopy was deemed necessary. The upper GI endoscopy was accomplished without difficulty. The patient tolerated the procedure well. Scope In: 4:29:53 PM Scope Out: 4:33:44 PM Total Procedure Duration Time 0 hours 3 minutes 51 seconds Findings: The examined esophagus was normal. A large hiatal hernia was present. The exam of the duodenum was otherwise normal. Impression: - Normal esophagus. - Large hiatal hernia. - No specimens collected. Recommendation: - Discharge patient to home. - Resume previous diet. - Continue present medications. - [facility]. - Resume previous diet. - Continue present medications. Procedure Code(s): --- Professional --- 92404, Small intestinal endoscopy, enteroscopy beyond second portion of duodenum, not including ileum; diagnostic, including collection of specimen(s) by brushing or washing, when performed (separate procedure) CPT copyright 2021 [employer]. All rights reserved. The codes documented in this report are preliminary and upon school examiner review may be revised to meet current compliance requirements. Nomi Kee DO 08/04/2024 4:42:45 PM This report has been signed electronically. Number of Addenda: 0 Note Initiated On: 08/04/2024 4:10 PM
--- NOTE | 2024-08-04 17:20 | NURSING ---
pt returned from endo
--- NOTE | 2024-08-04 17:20 | NURSING ---
pt returned from endo
--- NOTE | 2024-08-04 18:02 | POSTOPAN2_ITS ---
Anesthesia Postop Eval I Sum Postop Eval Completion status Anesthesia document: Postop Eval 1 completed: Yes Anesthesia Postop Eval I Summary Anesthesia Postop Eval I Summary: Anesthesia Postop Eval I: Assessment Summary Airway patent Yes 08/04/24 16:41 CONDUCTOR SLEEPING CAR.MDOT Spontaneous unlabored Yes 08/04/24 16:41 CONDUCTOR SLEEPING CAR.MDOT respirations Mental status Awake,Calm 08/04/24 16:41 CONDUCTOR SLEEPING CAR.MDOT nausea No 08/04/24 16:41 CONDUCTOR SLEEPING CAR.MDOT Vomiting No 08/04/24 16:41 CONDUCTOR SLEEPING CAR.MDOT Anesthesia Postop Eval I: Fluid Summary Crystalloid volume administer 100 08/04/24 16:41 CONDUCTOR SLEEPING CAR.MDOT (ml) Colloids volume administered ( ml) Blood Product volume administered (ml) Total IV fluid infused 100 08/04/24 16:41 CONDUCTOR SLEEPING CAR.MDOT Anesthesia Postop Eval I: Summary Notes Anesthesia Complication No 08/04/24 16:41 CONDUCTOR SLEEPING CAR.MDOT Anesthesia Complication Comment: Post-operative progress note Anesthesia: Postop Eval II Evaluation Mental status: Awake Pain Level: 0 nausea: No Vomiting: No
--- NOTE | 2024-08-04 18:02 | POSTOPAN2_ITS ---
Anesthesia Postop Eval I Sum Postop Eval Completion status Anesthesia document: Postop Eval 1 completed: Yes Anesthesia Postop Eval I Summary Anesthesia Postop Eval I Summary: Anesthesia Postop Eval I: Assessment Summary Airway patent Yes 08/04/24 16:41 ASSOCIATE COUNSEL.MDOT Spontaneous unlabored Yes 08/04/24 16:41 ASSOCIATE COUNSEL.MDOT respirations Mental status Awake,Calm 08/04/24 16:41 ASSOCIATE COUNSEL.MDOT nausea No 08/04/24 16:41 ASSOCIATE COUNSEL.MDOT Vomiting No 08/04/24 16:41 ASSOCIATE COUNSEL.MDOT Anesthesia Postop Eval I: Fluid Summary Crystalloid volume administer 100 08/04/24 16:41 ASSOCIATE COUNSEL.MDOT (ml) Colloids volume administered ( ml) Blood Product volume administered (ml) Total IV fluid infused 100 08/04/24 16:41 ASSOCIATE COUNSEL.MDOT Anesthesia Postop Eval I: Summary Notes Anesthesia Complication No 08/04/24 16:41 ASSOCIATE COUNSEL.MDOT Anesthesia Complication Comment: Post-operative progress note Anesthesia: Postop Eval II Evaluation Mental status: Awake Pain Level: 0 nausea: No Vomiting: No
--- NOTE | 2024-08-04 18:02 | PCM.POSTANE2 ---
Anesthesia Postop Eval I Sum Postop Eval Completion status Anesthesia document: Postop Eval 1 completed: Yes Anesthesia Postop Eval I Summary Anesthesia Postop Eval I Summary: Anesthesia Postop Eval I: Assessment Summary Airway patent Yes 08/04/24 16:41 LEVER OPERATOR.MDOT Spontaneous unlabored Yes 08/04/24 16:41 LEVER OPERATOR.MDOT respirations Mental status Awake,Calm 08/04/24 16:41 LEVER OPERATOR.MDOT nausea No 08/04/24 16:41 LEVER OPERATOR.MDOT Vomiting No 08/04/24 16:41 LEVER OPERATOR.MDOT Anesthesia Postop Eval I: Fluid Summary Crystalloid volume administer 100 08/04/24 16:41 LEVER OPERATOR.MDOT (ml) Colloids volume administered ( ml) Blood Product volume administered (ml) Total IV fluid infused 100 08/04/24 16:41 LEVER OPERATOR.MDOT Anesthesia Postop Eval I: Summary Notes Anesthesia Complication No 08/04/24 16:41 LEVER OPERATOR.MDOT Anesthesia Complication Comment: Post-operative progress note Anesthesia: Postop Eval II Evaluation Mental status: Awake Pain Level: 0 nausea: No Vomiting: No
--- NOTE | 2024-08-04 18:02 | PCM.POSTANE2 ---
Anesthesia Postop Eval I Sum Postop Eval Completion status Anesthesia document: Postop Eval 1 completed: Yes Anesthesia Postop Eval I Summary Anesthesia Postop Eval I Summary: Anesthesia Postop Eval I: Assessment Summary Airway patent Yes 08/04/24 16:41 MARINE RAILWAY OPERATOR.MDOT Spontaneous unlabored Yes 08/04/24 16:41 MARINE RAILWAY OPERATOR.MDOT respirations Mental status Awake,Calm 08/04/24 16:41 MARINE RAILWAY OPERATOR.MDOT nausea No 08/04/24 16:41 MARINE RAILWAY OPERATOR.MDOT Vomiting No 08/04/24 16:41 MARINE RAILWAY OPERATOR.MDOT Anesthesia Postop Eval I: Fluid Summary Crystalloid volume administer 100 08/04/24 16:41 MARINE RAILWAY OPERATOR.MDOT (ml) Colloids volume administered ( ml) Blood Product volume administered (ml) Total IV fluid infused 100 08/04/24 16:41 MARINE RAILWAY OPERATOR.MDOT Anesthesia Postop Eval I: Summary Notes Anesthesia Complication No 08/04/24 16:41 MARINE RAILWAY OPERATOR.MDOT Anesthesia Complication Comment: Post-operative progress note Anesthesia: Postop Eval II Evaluation Mental status: Awake Pain Level: 0 nausea: No Vomiting: No
[2024-08-04] MEDS: MELATONIN 3 MG TABLET PO (21:22)
[2024-08-04] MEDS: Atorvastatin Calcium 40 MG Tablet PO (21:22)
[2024-08-04] MEDS: Montelukast 10 MG Tablet PO ×2 (21:22→21:23)
[2024-08-04] MEDS: Mirtazapine 30 MG Tablet PO (21:23)
[2024-08-04] MEDS: 0.9% Saline Lock 10 ML Syringe IV (21:23)
--- NOTE | 2024-08-04 22:30 | PCM.HOSP.N ---
Hospitalist Note Patient pulled out her IV access. Currently on regular diet. RN notes planned D/C likely in AM. Will change IV PPI to oral regimen.
--- NOTE | 2024-08-04 22:30 | PCM.HOSP.N ---
Hospitalist Note Patient pulled out her IV access. Currently on regular diet. RN notes planned D/C likely in AM. Will change IV PPI to oral regimen.
[2024-08-05] MEDS: Pantoprazole Sodium 40 MG Tablet PO ×2 (00:05→10:54)
[2024-08-05 02:27] VITALS: BP 110/67; PULSE 78; RESP 16; TEMP 36.6; O2SAT 95
[2024-08-05] MEDS: Acetaminophen 325 MG Tablet 650 MG PO (06:28)
[2024-08-05] MEDS: Menthol/Lanolin/Calamine/Znox 113 GM Tube 1 APPLIC TOPICAL ×2 (06:29→10:52)
[2024-08-05] MEDS: Ipratropium/Albuterol Sulfate 3 ML AMPUL.NEB INHALATION (07:39)
[2024-08-05] MEDS: Budesonide Respules 0.5 MG/2 ML AMPUL.NEB. INHALATION (07:39)
[2024-08-05 07:41] VITALS: PULSE 84; RESP 18; O2SAT 97
[2024-08-05 07:49] VITALS: BP 138/88; PULSE 92; RESP 16; TEMP 36.6; O2SAT 95
[2024-08-05] MEDS: Multivitamins,Therapeutic Tablet 1 TABLET PO (08:01)
--- NOTE | 2024-08-05 10:49 | TREXTCAR_ITS ---
Diet Diet Order/Speech Therapy: INPATIENT Hospital Diet / Speech Therapy Order(s) 08/04/24 18:41 Diet: Regular - General Diet Comments: soft diet Routine Orders/Code Status Suppository Type: Dulcolax 10mg Suppository Frequency: Daily PRN DC O2, CPAP, BIPAP needs Home O2 Discharge instructions: Yes Type of respiratory needs?: Oxygen Oxygen frequency: Continuous Continuous oxygen liters per minute: 2 Wound(s) right hip: Wound Type: Surgical Incision Therapies Extremity Affected:: Bilateral Lower Physical Therapy: Eval and Treat Occupational Therapy: Eval and Treat Speech Therapy: Eval and Treat Problem/Diagnosis (1) GI bleed: Status: Acute Code(s): K92.2 - Gastrointestinal hemorrhage, unspecified (2) Anemia: Status: Acute Code(s): D64.9 - Anemia, unspecified Plan Patient is an 89-year-old female who presented to [facility] ED on 08/02/2024 with altered mentation and low hemoglobin. 1. Acute on chronic anemia with concern for upper GI bleed, history of gastric pull-through procedure ? GI following. Hemoglobin 7.0 on admit. Had hemoglobin reading of 6.2 in chart but on redraw was 7.0. Hemoccult positive in the ED so there was concern for upper GI bleed. Notably hemoglobin dropped from 10.5 to 7.3 during recent hospitalization after right hip procedure noted below, so hemoglobin on admission was similar to previous. CT brain negative for bleed. CT hip with no concern for postoperative hematoma. Given 2 units of packed red blood cells with hemoglobin improvement to 9.6. Discussed with GI and does given history of gastric pull-through procedure, there is concern that she could have a slow upper GI bleed. Continue IV PPI twice daily for now. N.p.o. at midnight with plan for EGD tomorrow. 08/04: Posttransfusion H&H 11/32%. Platelet count 200 86K, INR 1.1. Patient is not confused or delirious. Discussed with Dr. Kee and patient is well optimized for EGD. Stool for occult blood was positive. 2. Acute metabolic encephalopathy ? Patient alert and oriented x 1 to person only on admit. Per family, is typically alert and oriented x 3 and mentally sharp. Unclear etiology for encephalopathy at this time. CT brain negative. Infectious workup negative to this point and patient noninfectious appearing. Continue to monitor and avoid sedating medications as able. 08/04: Acute metabolic encephalopathy resolved. 3. Recent right hip fracture s/p cephalomedullary nail placement with acute on chronic debility ? PT/OT/case management following. Recently hospitalized here from 07/25 to 07/29 for fall with right hip fracture. S/p right femur cephalomedullary nail placement on 07/26. Patient discharged to [facility] and suspect she will need SNF placement again on this discharge. Appreciate therapy recommendations. 4. Chronic HFpEF, history of CAD with stenting, hypertension, hyperlipidemia, history of CVA, chronic hypoxic respiratory failure ? Hemodynamically stable on 2 L on admit. Was recently discharged on 2 L nasal cannula. Last echo in 2022 showed EF 70%, LA enlargement but no diastolic dysfunction, no valvular issues. Continue home statin, Lasix, doxazosin, Imdur, and Lopressor. Holding home Plavix as above. 5. Concern for urinary retention ? Patient with significant distended urinary bladder on CT on admit. However, has voided without issue since admission with postvoid residuals that are negligible. Continue doxazosin as above. 6. Anxiety/depression ? Stable. Continue home bupropion and mirtazapine. 7. GERD ? Continue home PPI. DVT prophylaxis: SCDs CODE STATUS: DNR CCA, DNI Expected disposition: Likely back to detention, TBD Microbiology Past 72 Hours 08/02/24 14:55 Urine, Catheterized Urine Culture - Final Culture exhibits no growth. 08/02/24 15:45 Stool Stool Occult Blood (AYAH) - Final Occult Blood Positive Laboratory Results 08/04/24 05:28: WBC 7.8, RBC 3.27 L, Hgb 11.0 L, Hct 32.0 L, MCV 97.9, MCH 33.6 H, MCHC 34.4, RDW Std Deviation 50.4 H, RDW Coeff of Tamera 16.7 H, Plt Count 286, MPV 8.7, PT 14.1, INR 1.1, APTT 29.9, Sodium 143, Potassium 3.4, Chloride 102, Carbon Dioxide 29.5, Anion Gap 12, BUN 12, Creatinine 0.74, Estim Creat Clear Calc 34.91 L, Est GFR (MDRD) Non-Af 78, BUN/Creatinine Ratio 15.8, Glucose 98, Calcium 9.4, TSH 1.990 Allergies/Procedures Done in Hospital Allergies cephalexin Allergy (Verified 08/04/24 11:26) PT UNSURE OF REACTION clarithromycin Allergy (Verified 08/04/24 11:26) PT UNSURE OF REACTION clindamycin Allergy (Verified 08/04/24 11:26) PT UNSURE OF REACTION doxazosin Allergy (Verified 08/04/24 11:26) NEEDS FOLLOW-UP erythromycin base Allergy (Verified 08/04/24 11:26) PT UNSURE OF REACTION eszopiclone Allergy (Verified 08/04/24 11:26) PT UNSURE OF REACTION Fish Containing Products (seafood) Allergy (Verified 08/04/24 11:26) PT UNSURE OF REACTION fish derived Allergy (Verified 08/04/24 11:26) PT UNSURE OF REACTION lincomycin Allergy (Verified 08/04/24 11:26) PT UNSURE OF REACTION lorazepam Allergy (Verified 08/04/24 11:26) PT UNSURE OF REACTION mushroom (mushrooms) Allergy (Verified 08/04/24 11:26) PT UNSURE OF REACTION NSAIDS (Non-Steroidal Anti-Inflamma Allergy (Verified 08/04/24 11:26) PT UNSURE OF REACTION Penicillins Allergy (Verified 08/04/24 11:26) PT UNSURE OF REACTION rofecoxib Allergy (Verified 08/04/24 11:26) PT UNSURE OF REACTION salicylates Allergy (Verified 08/04/24 11:26) PT UNSURE OF REACTION temazepam Allergy (Verified 08/04/24 11:26) PT UNSURE OF REACTION Tetracyclines Allergy (Verified 08/04/24 11:26) PT UNSURE OF REACTION trazodone Allergy (Verified 08/04/24 11:26) PT UNSURE OF REACTION Type of Care/Length of Stay Estimated LOS: Convalescent Care Less Than 30 days Type of Care Needed: Skilled Rehab Potential: Good Prognosis: Good Additional Orders/Day of Discharge Day of Discharge: 08/05/24 Dietary and Speech Recommendations Dietitian Recommendations/Changes: Advance diet as tolerated to Regular as medically able to optimize oral intakes. Discharge Plan Admission Admit Date/Time: 08/02/24 17:20 Attending Provider: Neymar Cunningham Primary Care Provider: Deperro Sr.,Kam Consulting Providers: Janine Harrison; Hayden Diaz Discharge Orders/Prescriptions Prescriptions: Continued Ensure Liquid 8 ml PO DAILY bupropion HCl 150 mg tablet extended release 24 hr 150 mg PO DAILY doxazosin [Cardura] 2 mg tablet 2 mg PO DAILY Fiber Gummies 2 gram tablet,chewable 5 g PO DAILY fluticasone propionate [24 Hour Allergy Relief] 50 mcg/actuation spray,suspension 1 spray intranasal DAILY Rx Instructions: administer into each nostril isosorbide mononitrate 30 mg tablet extended release 24 hr 30 mg PO DAILY mirtazapine 30 mg tablet 30 mg PO QHS montelukast 10 mg tablet 10 mg PO QHS multivitamin [Daily Multi-Vitamin] Tablet 1 tab PO DAILY Ultimate Xuan Probiotic 30 billion cell capsule,delayed release(DR/EC) 1 cap PO DAILY azelastine 137 mcg (0.1 %) aerosol,spray 1 spray intranasal BID Rx Instructions: administer into each nostril gabapentin 600 mg tablet 600 mg PO BID metoprolol tartrate 25 mg tablet 25 mg PO BID acetaminophen [Tylenol] 325 mg capsule 650 mg PO BID atorvastatin 40 mg Tablet 40 mg PO QHS 20 Days Qty: 30 2RF cetirizine 5 mg tablet 5 mg PO DAILY clopidogrel 75 mg tablet 75 mg PO DAILY isosorbide mononitrate 30 mg tablet extended release 24 hr 30 mg PO DAILY pantoprazole 40 mg tablet,delayed release (DR/EC) 40 mg PO DAILY potassium chloride 20 mEq tablet,ER particles/crystals 20 meq PO DAILY gabapentin 100 mg capsule PO ipratropium-albuterol 0.5 mg-3 mg(2.5 mg base)/3 mL solution for nebulization Patient Comments: [NO ORIGINAL SIG] dicyclomine 10 mg capsule 10 mg PO TID acetaminophen 500 mg Tablet 1,000 mg PO Q8 Qty: 0 0RF Rx Instructions: 1 g every 8 hourly for 1 week and then 1 g every 8 hourly as needed for severe pain Eliquis 5 mg Tablet 2.5 mg PO BID Qty: 0 0RF Rx Instructions: For total 30 days calcium carbonate 200 mg calcium (500 mg) Tablet,Chewable 500 mg PO TIDCM Qty: 0 0RF sennosides-docusate sodium [Stimulant Laxative Plus] 8.6-50 mg Tablet 2 tab PO BID Qty: 0 0RF polyethylene glycol 3350 [Miralax] 17 gram/dose powder 17 g PO BID 30 Days Qty: 1020 0RF Rx Instructions: Twice daily for 3 days and then once daily ascorbic acid (vitamin C) 500 mg tablet 500 mg PO BID Qty: 60 2RF cetirizine 5 mg tablet 5 mg PO DAILY ferrous sulfate 325 mg (65 mg iron) tablet 325 mg PO DAILY cholecalciferol (vitamin D3) [Vitamin D3] 125 mcg (5,000 unit) tablet 125 mcg PO DAILY budesonide 0.5 mg/2 mL suspension for nebulization 0.5 mg inhalation BID Patient Comments: [NO ORIGINAL SIG] ipratropium-albuterol 0.5 mg-3 mg(2.5 mg base)/3 mL solution for nebulization 3 ml inhalation BID Patient Comments: [NO ORIGINAL SIG] Changed furosemide 40 mg tablet 20 mg PO DAILY 30 Days Qty: 0 0RF Rx Instructions: Extra 20 mg in the morning if gaining weight more than 2 pounds in 3 to 4 days Held clopidogrel 75 mg tablet 75 mg PO DAILY Hold Instructions: Hold while taking Eliquis. Discontinued calcium carbonate [Calcium 500] 500 mg calcium (1,250 mg) tablet,chewable 500 mg PO DAILY pantoprazole 40 mg tablet,delayed release (DR/EC) 40 mg PO DAILY potassium chloride [K-Tab] 20 mEq tablet extended release 20 meq PO DAILY dicyclomine 10 mg capsule 10 mg PO Q6H atorvastatin 40 mg tablet 40 mg PO DAILY bupropion HCl 150 mg tablet extended release 24 hr 150 mg PO DAILY doxazosin 2 mg tablet 2 mg PO DAILY mirtazapine 30 mg tablet 30 mg PO QHS montelukast 10 mg tablet 10 mg PO DAILY multivitamin with folic acid [Daily-Carmelo (with folic acid)] 400 mcg tablet 1 tab PO DAILY budesonide 0.5 mg/2 mL suspension for nebulization Patient Comments: [NO ORIGINAL SIG] metoprolol tartrate 25 mg tablet 25 mg PO BID azelastine 137 mcg (0.1 %) spray,non-aerosol INTRANASAL Patient Comments: [NO ORIGINAL SIG] cholecalciferol (vitamin D3) 125 mcg (5,000 unit) capsule 125 mcg PO DAILY Qty: 0 0RF furosemide 40 mg Tablet 40 mg PO DAILY Qty: 0 0RF Rx Instructions: 40 mg daily for 5 days and then 20 mg daily ferrous sulfate [FeroSul] 325 mg (65 mg iron) tablet 325 mg PO DAILY 30 Days Qty: 30 2RF Fiber Select Gummies 2-100 gram-mcg tablet,chewable 1 tab PO DAILY ascorbic acid (vitamin C) 500 mg capsule 500 mg PO BID polyethylene glycol 3350 [Miralax] 17 gram/dose powder 17 g PO BID sennosides-docusate sodium [Senexon-S] 8.6-50 mg tablet 1 tab PO DAILY Referrals / Follow Up: Terrence Addison,DO Kam [Primary Care Provider] - Within 2 Weeks Disposition Disposition (needs filled in before D/C Order can be placed): [facility]
[2024-08-05 10:53] VITALS: PULSE 92
[2024-08-05] MEDS: Loratadine 10 MG Tablet PO (10:53)
[2024-08-05] MEDS: Doxazosin 1 MG Tablet 2 MG PO (10:53)
[2024-08-05] MEDS: Isosorbide Mononitrate 30 MG Tablet PO (10:53)
[2024-08-05] MEDS: Furosemide 40 MG Tablet PO (10:53)
[2024-08-05] MEDS: Metoprolol Tartrate 25 MG Tablet PO (10:53)
[2024-08-05] MEDS: buPROPion (XL) 150 MG TABLET.XL PO (10:54)
[2024-08-05] MEDS: Cholecalciferol (Vit D3) 125 MCG CAPSULE (5,000 UNITS) PO (10:54)
[2024-08-05] MEDS: Gabapentin 600 MG Tablet PO (10:57)
--- NOTE | 2024-08-05 11:49 | PCM.DC.SUM ---
Providers Date of Admission: 08/02/24 Date of Discharge: 08/05/24 Primary Care Physician: Dr. Kam Ocampo Sr., DO Consultations 08/02/24 18:50 Consult: Gastroenterology Routine Consulting Provider: [facility] Reason for Consult: GI bleed EMERGENT Consult: No MD Notified: Yes Date Notified: 08/03/24 Time Notified: 06:09 Method of Notification: Text Reason For Visit: ANEMIA, GI BLEED Diagnosis Discharge Diagnosis (1) GI bleed: Status: Acute Code(s): K92.2 - Gastrointestinal hemorrhage, unspecified (2) Anemia: Status: Acute Code(s): D64.9 - Anemia, unspecified Plan Patient is an 89-year-old female who presented to [facility] ED on 08/02/2024 with altered mentation and low hemoglobin. 1. Acute on chronic anemia with concern for upper GI bleed, history of gastric pull-through procedure ? GI following. Hemoglobin 7.0 on admit. Had hemoglobin reading of 6.2 in chart but on redraw was 7.0. Hemoccult positive in the ED so there was concern for upper GI bleed. Notably hemoglobin dropped from 10.5 to 7.3 during recent hospitalization after right hip procedure noted below, so hemoglobin on admission was similar to previous. CT brain negative for bleed. CT hip with no concern for postoperative hematoma. Given 2 units of packed red blood cells with hemoglobin improvement to 9.6. Discussed with GI and does given history of gastric pull-through procedure, there is concern that she could have a slow upper GI bleed. Continue IV PPI twice daily for now. N.p.o. at midnight with plan for EGD tomorrow. 08/04: Posttransfusion H&H 11/32%. Platelet count 286K, INR 1.1. Patient is not confused or delirious. Discussed with Dr. Kee and patient is well optimized for EGD. Stool for occult blood was positive. 08/05: EGD on 08/04/2024 Impression: - Normal esophagus. - Large hiatal hernia. - No specimens collected. On Protonix 40 mg daily. Hold Plavix. If she has bleeding she can follow in GI office 2. Acute metabolic encephalopathy ? Patient alert and oriented x 1 to person only on admit. Per family, is typically alert and oriented x 3 and mentally sharp. Unclear etiology for encephalopathy at this time. CT brain negative. Infectious workup negative to this point and patient noninfectious appearing. Continue to monitor and avoid sedating medications as able. 08/04: Acute metabolic encephalopathy resolved. 3. Recent right hip fracture s/p cephalomedullary nail placement with acute on chronic debility ? PT/OT/case management following. Recently hospitalized here from 07/25 to 07/29 for fall with right hip fracture. S/p right femur cephalomedullary nail placement on 07/26. Patient discharged to [facility] and suspect she will need SNF placement again on this discharge. Appreciate therapy recommendations. 4. Chronic HFpEF, history of CAD with stenting, hypertension, hyperlipidemia, history of CVA, chronic hypoxic respiratory failure ? Hemodynamically stable on 2 L on admit. Was recently discharged on 2 L nasal cannula. Last echo in 2022 showed EF 70%, LA enlargement but no diastolic dysfunction, no valvular issues. Continue home statin, Lasix, doxazosin, Imdur, and Lopressor. Holding home Plavix as above. 5. Concern for urinary retention ? Patient with significant distended urinary bladder on CT on admit. However, has voided without issue since admission with postvoid residuals that are negligible. Continue doxazosin as above. 6. Anxiety/depression ? Stable. Continue home bupropion and mirtazapine. 7. GERD ? Continue home PPI. DVT prophylaxis: SCDs CODE STATUS: DNR CCA, DNI Expected disposition: Likely back to [facility], TBD Microbiology Past 72 Hours 08/02/24 14:55 Urine, Catheterized Urine Culture - Final Culture exhibits no growth. 08/02/24 15:45 Stool Stool Occult Blood (AYAH) - Final Occult Blood Positive Laboratory Results 08/04/24 05:28: WBC 7.8, RBC 3.27 L, Hgb 11.0 L, Hct 32.0 L, MCV 97.9, MCH 33.6 H, MCHC 34.4, RDW Std Deviation 50.4 H, RDW Coeff of Tamera 16.7 H, Plt Count 286, MPV 8.7, PT 14.1, INR 1.1, APTT 29.9, Sodium 143, Potassium 3.4, Chloride 102, Carbon Dioxide 29.5, Anion Gap 12, BUN 12, Creatinine 0.74, Estim Creat Clear Calc 34.91 L, Est GFR (MDRD) Non-Af 78, BUN/Creatinine Ratio 15.8, Glucose 98, Calcium 9.4, TSH 1.990 Medications at Discharge Home Medications Lactobacillus-Bifidobacterium 30 billion cell capsule,delayed release (Ultimate Xuan Probiotic) 1 cap PO DAILY 10/30/22 acetaminophen 325 mg capsule (Tylenol) 650 mg PO BID pain 10/30/22 azelastine 137 mcg (0.1 %) nasal spray 1 spray intranasal BID nasal spray 10/30/22 bupropion HCl 150 mg 24 hr tablet, extended release 150 mg PO DAILY 10/30/22 doxazosin 2 mg tablet (Cardura) 2 mg PO DAILY 10/30/22 fluticasone propionate 50 mcg/actuation nasal spray,suspension (24 Hour Allergy Relief) 1 spray intranasal DAILY 10/30/22 food supplemt, lactose-reduced (Ensure oral liquid) 8 ml PO DAILY 10/30/22 gabapentin 600 mg tablet 600 mg PO BID 10/30/22 inulin 2 gram chewable tablet (Fiber Gummies) 5 g PO DAILY 10/30/22 isosorbide mononitrate 30 mg tablet,extended release 24 hr 30 mg PO DAILY 10/30/22 metoprolol tartrate 25 mg tablet 25 mg PO BID 10/30/22 mirtazapine 30 mg tablet 30 mg PO QHS 10/30/22 montelukast 10 mg tablet 10 mg PO QHS 10/30/22 multivitamin (Daily Multi-Vitamin tablet) 1 tab PO DAILY 10/30/22 atorvastatin 40 mg tablet 40 mg PO QHS 20 days #30 tabs 11/02/22 dicyclomine 10 mg capsule 10 mg PO TID . 07/25/24 ipratropium 0.5 mg-albuterol 3 mg (2.5 mg base)/3 mL nebulization soln ml . 07/25/24 isosorbide mononitrate 30 mg tablet,extended release 24 hr 30 mg PO DAILY . 07/25/24 pantoprazole 40 mg tablet,delayed release 40 mg PO DAILY . 07/25/24 potassium chloride 20 mEq tablet,extended release(part/cryst) 20 meq PO DAILY . 07/25/24 acetaminophen 500 mg tablet 1,000 mg (2 x 500 mg) PO Q8 #0 tabs 07/28/24 apixaban 5 mg tablet (Eliquis) 2.5 mg (1/2 x 5 mg) PO BID #0 tabs 07/28/24 ascorbic acid (vitamin C) 500 mg tablet 500 mg PO BID #60 tabs 07/28/24 calcium carbonate 500 mg (2.5 x 200 mg calcium (500 mg)) PO TIDCM #0 tabs 07/28/24 polyethylene glycol 3350 17 gram/dose oral powder (Miralax) 17 g PO BID 1 month #1,020 grams 07/28/24 sennosides 8.6 mg-docusate sodium 50 mg tablet (Stimulant Laxative Plus) 2 tab PO BID #0 tabs 07/28/24 budesonide 0.5 mg/2 mL suspension for nebulization 0.5 mg inhalation BID 08/02/24 cetirizine 5 mg tablet 5 mg PO DAILY 08/02/24 cholecalciferol (vitamin D3) 125 mcg (5,000 unit) tablet (Vitamin D3) 125 mcg PO DAILY 08/02/24 clopidogrel 75 mg tablet 75 mg PO DAILY blood thinner 08/02/24 Held on 08/05/24. Instructions: Hold while taking Eliquis. ferrous sulfate 325 mg (65 mg iron) tablet 325 mg PO DAILY 08/02/24 ipratropium 0.5 mg-albuterol 3 mg (2.5 mg base)/3 mL nebulization soln 3 ml inhalation BID 08/02/24 furosemide 40 mg tablet 20 mg (1/2 x 40 mg) PO DAILY fluid retention 30 days #0 tabs 08/05/24 Physical Exam Narrative Seen and examined. Patient is elderly lady with dementia and forgetfulness. She cannot recall her age but she told the date of and current month correctly. Her has passed. She has chronic dementia Physical exam General: Alert, Oriented x3, Cooperative. Not confused or not in delirium HEENT: Atraumatic, PERRLA, EOMI, Normocephalic. Oral: No Gingival or Mucosal Lesions/ Ulcerations Neck: Supple, No JVD, Negative Carotid Bruits Chest wall/Lungs: Air entry diminished in bilateral lung bases. No crepitation/rhonchi Cardiovascular: Regular rate and rhythm, Normal S1,S2, No M/G/R Abdomen: Bowel Sounds Present, Soft, Non Tender, Non-Distended : No dysuria. No renal angle tenderness. No suprapubic tenderness. Extremities: No edema, Capillary Refill Less than 3 Seconds Skin: No rashes, No breakdown Musculoskeletal: No Tenderness to Palpation of Joints or Extremities Neurological: Cranial nerves II-XII grossly intact, DTR 2+/4. No acute focal neurological deficit. Psych/Mental Status: Dementia. Weight / BMI Weight Weight: 113 lb 15.664 oz Body Mass Index (BMI) 22.2 ABG / Lab / Microbiology Data 08/04/24 05:28 08/04/24 05:28 Microbiology: Microbiology 08/02/24 14:55 Urine, Catheterized Urine Culture - Final Culture exhibits no growth. 08/02/24 15:45 Stool Stool Occult Blood (AYAH) - Final Occult Blood Positive D/C Instructions DC O2, CPAP, BIPAP Needs Home O2 Discharge instructions: Yes Type of respiratory needs?: Oxygen Oxygen frequency: Continuous Continuous oxygen liters per minute: 2 DC home with Oxygen: Yes Home O2 MD Review: I have reviewed the oxygen testing, and the patient qualifies for home oxygen equipment and portability. The patient is mobile in the home and the community. Meaningful Use Info Meaningful Use Meaningful Use Diagnoses (Choose all that apply): None applicable Ischemic Stroke Statin Dosing Therapy Reference: STATIN DOSE THERAPY REFERENCE: * Patients > 75 years receive moderate or high dose statin therapy. * Patients 75 years or YOUNGER should receive HIGH intensity statin dose unless contraindicated. You will be required to document reason for non-treatment if statin daily dose does not meet guidelines. HIGH DOSE STATIN THERAPY DAILY Atorvastatin > than or = to 40 mg Rosuvastatin > than or = to 20 mg Amlodipine + Atorvastatin > than or = to 2.5/40 mg Ezetimibe + Simvastatin 10/80 mg Simvastatin 80mg Discharge Plan Admission Admit Date/Time: 08/02/24 17:20 Attending Provider: Neymar Cunningham Primary Care Provider: Terrence Addison,Kam Consulting Providers: Janine Harrison; Hayden Diaz Discharge Orders/Prescriptions Prescriptions: Continued Ensure Liquid 8 ml PO DAILY bupropion HCl 150 mg tablet extended release 24 hr 150 mg PO DAILY doxazosin [Cardura] 2 mg tablet 2 mg PO DAILY Fiber Gummies 2 gram tablet,chewable 5 g PO DAILY fluticasone propionate [24 Hour Allergy Relief] 50 mcg/actuation spray,suspension 1 spray intranasal DAILY Rx Instructions: administer into each nostril isosorbide mononitrate 30 mg tablet extended release 24 hr 30 mg PO DAILY mirtazapine 30 mg tablet 30 mg PO QHS montelukast 10 mg tablet 10 mg PO QHS multivitamin [Daily Multi-Vitamin] Tablet 1 tab PO DAILY Ultimate Xuan Probiotic 30 billion cell capsule,delayed release(DR/EC) 1 cap PO DAILY azelastine 137 mcg (0.1 %) aerosol,spray 1 spray intranasal BID Rx Instructions: administer into each nostril gabapentin 600 mg tablet 600 mg PO BID metoprolol tartrate 25 mg tablet 25 mg PO BID acetaminophen [Tylenol] 325 mg capsule 650 mg PO BID atorvastatin 40 mg Tablet 40 mg PO QHS 20 Days Qty: 30 2RF isosorbide mononitrate 30 mg tablet extended release 24 hr 30 mg PO DAILY pantoprazole 40 mg tablet,delayed release (DR/EC) 40 mg PO DAILY potassium chloride 20 mEq tablet,ER particles/crystals 20 meq PO DAILY ipratropium-albuterol 0.5 mg-3 mg(2.5 mg base)/3 mL solution for nebulization Patient Comments: [NO ORIGINAL SIG] dicyclomine 10 mg capsule 10 mg PO TID acetaminophen 500 mg Tablet 1,000 mg PO Q8 Qty: 0 0RF Rx Instructions: 1 g every 8 hourly for 1 week and then 1 g every 8 hourly as needed for severe pain Eliquis 5 mg Tablet 2.5 mg PO BID Qty: 0 0RF Rx Instructions: For total 30 days calcium carbonate 200 mg calcium (500 mg) Tablet,Chewable 500 mg PO TIDCM Qty: 0 0RF sennosides-docusate sodium [Stimulant Laxative Plus] 8.6-50 mg Tablet 2 tab PO BID Qty: 0 0RF polyethylene glycol 3350 [Miralax] 17 gram/dose powder 17 g PO BID 30 Days Qty: 1020 0RF Rx Instructions: Twice daily for 3 days and then once daily ascorbic acid (vitamin C) 500 mg tablet 500 mg PO BID Qty: 60 2RF cetirizine 5 mg tablet 5 mg PO DAILY ferrous sulfate 325 mg (65 mg iron) tablet 325 mg PO DAILY cholecalciferol (vitamin D3) [Vitamin D3] 125 mcg (5,000 unit) tablet 125 mcg PO DAILY budesonide 0.5 mg/2 mL suspension for nebulization 0.5 mg inhalation BID Patient Comments: [NO ORIGINAL SIG] ipratropium-albuterol 0.5 mg-3 mg(2.5 mg base)/3 mL solution for nebulization 3 ml inhalation BID Patient Comments: [NO ORIGINAL SIG] Changed furosemide 40 mg tablet 20 mg PO DAILY 30 Days Qty: 0 0RF Rx Instructions: Extra 20 mg in the morning if gaining weight more than 2 pounds in 3 to 4 days Held clopidogrel 75 mg tablet 75 mg PO DAILY Hold Instructions: Hold while taking Eliquis. Discontinued calcium carbonate [Calcium 500] 500 mg calcium (1,250 mg) tablet,chewable 500 mg PO DAILY pantoprazole 40 mg tablet,delayed release (DR/EC) 40 mg PO DAILY potassium chloride [K-Tab] 20 mEq tablet extended release 20 meq PO DAILY dicyclomine 10 mg capsule 10 mg PO Q6H atorvastatin 40 mg tablet 40 mg PO DAILY bupropion HCl 150 mg tablet extended release 24 hr 150 mg PO DAILY cetirizine 5 mg tablet 5 mg PO DAILY clopidogrel 75 mg tablet 75 mg PO DAILY doxazosin 2 mg tablet 2 mg PO DAILY mirtazapine 30 mg tablet 30 mg PO QHS montelukast 10 mg tablet 10 mg PO DAILY multivitamin with folic acid [Daily-Carmelo (with folic acid)] 400 mcg tablet 1 tab PO DAILY budesonide 0.5 mg/2 mL suspension for nebulization Patient Comments: [NO ORIGINAL SIG] gabapentin 100 mg capsule PO metoprolol tartrate 25 mg tablet 25 mg PO BID azelastine 137 mcg (0.1 %) spray,non-aerosol INTRANASAL Patient Comments: [NO ORIGINAL SIG] cholecalciferol (vitamin D3) 125 mcg (5,000 unit) capsule 125 mcg PO DAILY Qty: 0 0RF furosemide 40 mg Tablet 40 mg PO DAILY Qty: 0 0RF Rx Instructions: 40 mg daily for 5 days and then 20 mg daily ferrous sulfate [FeroSul] 325 mg (65 mg iron) tablet 325 mg PO DAILY 30 Days Qty: 30 2RF Fiber Select Gummies 2-100 gram-mcg tablet,chewable 1 tab PO DAILY ascorbic acid (vitamin C) 500 mg capsule 500 mg PO BID polyethylene glycol 3350 [Miralax] 17 gram/dose powder 17 g PO BID sennosides-docusate sodium [Senexon-S] 8.6-50 mg tablet 1 tab PO DAILY Referrals / Follow Up: Terrence Addison,DO Kam [Primary Care Provider] - Within 2 Weeks Thanh Mclaughlin DO [Med Staff - Active Staff] - Within 2 Weeks Zahraa Zimmerman PA [Med Staff - Adv Practice Prof] - Within 1 Month Disposition Disposition (needs filled in before D/C Order can be placed): [facility]
--- NOTE | 2024-08-05 12:09 | CASEMGMT ---
Social Work Precert has been obtained.? Physician updated and pt is ready for discharge today.? DCA and bedside nurse notified of discharge. DCA to make all final arrangements and notifications. Disposition: [facility], skilled level of care.
--- NOTE | 2024-08-05 12:19 | CASEMGMT ---
Discharge Planning Discharge orders, signed med list, and transport time sent to [facility]. Physicians will transport pt by cot at 1:30p. Nursing, SW, and pts son (Ganga) updated. Virginia Angel DC Planning Asst.
--- NOTE | 2024-08-05 12:19 | CASEMGMT ---
Discharge Planning Discharge orders, signed med list, and transport time sent to [facility]. Physicians will transport pt by cot at 1:30p. Nursing, SW, and pts son (Ganga) updated. Virginia Angel DC Planning Asst.
[2024-08-05 14:58] VITALS: BP 152/94; PULSE 81; RESP 16; TEMP 36.4; O2SAT 97
== END 2024-08-05 16:05 | disposition skilled nursing facility (03) | DRG 377 ==
LOC: ED 16:38 → MS3 17:30
PROVIDERS: Anesthesiology; Hospitalist; Internal Medicine Gastroenterology; Admitting Provider Internal Medicine; Emergency Provider Emergency Medicine; PCP Internal Medicine; Referring Provider Internal Medicine; Visit Provider Internal Medicine
PROC: 0DJ08ZZ Inspection of Upper Intestinal Tract, Via Natural or Artificial Opening Endoscopic (ICD-10-PCS; CPT 43235; principal; 2024-08-04 15:55)
DX: K92.2 Gastrointestinal hemorrhage, unspecified (principal); G93.41 Metabolic encephalopathy; I50.32 Chronic diastolic (congestive) heart failure; J96.11 Chronic respiratory failure with hypoxia; Z66 Do not resuscitate; F03.90 Unspecified dementia, unspecified severity, without behavioral disturbance, psychotic disturbance, mood disturbance, and anxiety; I11.0 Hypertensive heart disease with heart failure; F32.A Depression, unspecified; D50.9 Iron deficiency anemia, unspecified; I25.10 Atherosclerotic heart disease of native coronary artery without angina pectoris; K21.9 Gastro-esophageal reflux disease without esophagitis; E78.5 Hyperlipidemia, unspecified; F41.9 Anxiety disorder, unspecified; K44.9 Diaphragmatic hernia without obstruction or gangrene; R33.9 Retention of urine, unspecified; Z95.5 Presence of coronary angioplasty implant and graft; Z99.81 Dependence on supplemental oxygen; Z79.02 Long term (current) use of 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/antiplatelets; Z79.51 Long term (current) use of inhaled steroids; Z79.899 Other long term (current) drug therapy; Z86.73 Personal history of transient ischemic attack (TIA), and cerebral infarction without residual deficits
CPT/HCPCS: 36415; 70450; 72192; 74177; 80048; 80053; 81001; 82140; 82274; 82607; 82746; 82962; 83690; 84443; 85014; 85018; 85025; 85027; 85610; 85730; 86850; 86870; 86900; 86901; 86902; 86905; 86920; 86921; 86922; 87086; 93005; 94640; 97110; 97116; 97163; 97166; 97530; 97535; 99285; P9016; Q9967; A4216

== ENCOUNTER → 2024-09-13 05:00 | Outpatient (REF) | payer MEDICARE, OTHER, MEDICAID, SELFPAY ==
--- OUTSIDE RECORDS SUMMARY | 2024-09-13 04:02 | XMS RPT_ITS | CCD ---
Author Organization [facility] Care Team Providers Care Daytime Caregiver Name Role Phone Tavon-Babar, Vincenta Unavailable Unavailable Tavon-Babar, Vincenta Unavailable Unavailable Hugo, Chenguttai Jayaram Unavailable Unav ailable Hugo, Chenguttai Jayaram Unavailable Unav ailable Hugo, Chenguttai Jayaram Unavailable Unav ailable Hugo, Chenguttai Jayaram Unavailable Unav ailable Hugo, Chenguttai Jayaram Unavailable Unav ailable Hugo, Chenguttai Jayaram Unavailable Unav ailable [place]cer Unavailable Unavailable Hugo, Chenguttai Jayaram Unavailable Unav [...] e Tapia, Jessenia Celsa Unavailable Unavailabl e Columbus, Spencer Lane Unavailable Unavailable Hugo, Chenguttai Jayaram Unavailable Unav ailable Cheres, Daniel-Maximo Unavailable Unavailable Hugo, Chenguttai Jayaram Unavailable Unav ailable Cheres, Daniel-Maximo Unavailable Unavailable ROSLYN EID Unavailable Unavailable Hugo, Niralitayaa J Unavailable Unavailroro e Rashad Agosto, Christ Unavailable Unavailable Christ Gardiner Unavailable Unavailabl e Hugo, Chenguttai J Unavailable Unavailabl e Senthil, Crystal L Unavailable Unavailable Costa Nieto J Unavailable Unavailable Christ Gardiner Unavailable Unavailable Christ Gardiner Unavailable Unavailable Unavailable Christ Gardiner DO Primary Care Provider Jeff PROGRAM SUPERVISOR-GRINDER SET UP OPERATOR THREAD TOOL, Apple Unavailable [phone] CHRIST GARDINER Primary Care Unavailroro e Jeff, MsLeigh Apple Attending Unavailable Rashad Aogsto, Dr. Christ Barron Primary [facility] Rashad Agosto, Dr. Christ Barron Attending [facility] Rashad Agosto, Dr. Christ Barron Primary Care [facility] JEFF, GRINDER SET UP OPERATOR THREAD TOOL APPLE Attending Unavailable Rashad Agosto, Dr. Christ Barron Primary Care [facility] Rashad Agosto, Dr. Christ Barron Primary Care [facility] Rashad Agosto, Dr. Christ Barron Attending [facility] Rashad Agosto, Dr. Christ Barron Primary Care [facility] Rashad Agosto, Dr. Christ Barron Attending [facility] Rashad Agosto, Dr. Christ Barron Attending [facility] Rashad Agosto, Dr. Christ Barron Referring [facility] Rashad Agosto, Dr. Christ Barron Primary Care [facility] JEFF, GRINDER SET UP OPERATOR THREAD TOOL APPLE Attending Unavailable Rashad Agosto, Dr. Christ Barron Primary Care U navailable Van Nostran, Dr. Christ Barron Primary Care U navailable JEFF, GRINDER SET UP OPERATOR THREAD TOOL APPLE Attending Unavailable Van Nostran , Christ E Unavailable VAN NOSTRAN, CHRIST E [...] Unavailable Van Nostran, Saida Primary Care Provider Dr. Amalia Donahue Emergency Provider Dr. Kam Ocampo Sr. Primary Care Provider [phone] Dr. Hayden Diaz Admit Provider Dr. Hayden Diaz Other Provider Dr. Neymar Cunningham Other Provider Dr. Ajay Nieves Attending Provider Dr. Juanita Jiang Attending Provider Dr. Neymar Cunningham Attending Provider Dr. Mu Grossman Other Provider Dr. Ajay Nieves Other Provider Dr. Dayron oWrkman Other Provider Unavailable Dr. Lucio Brown Other Provider Dr. Alen Burgess Other Provider Unavailab nacho Perez CEMENT RUBBER, CEMENT RUBBER-C Melania Other Provider Dr. Neymar Cunningham Referring Provider Dr. Juanita Jiang Referring Provider Dr. Amalia Donahue Emergency Provider Dr. Kam Ocampo Sr. Primary Care Provider Dr. Hayden Diaz Admit Provider Dr. Hayden Diaz Other Provider Dr. Neymar Cunningham Referring Provider Dr. Neymar Cunningham Other Provider Dr. Ajay Nieves Attending Provider Dr. Juanita Jiang Attending Provider Dr. Juanita Jiang Referring Provider Dr. Neymar Cunningham Attending Provider Dr. Mu Grossman Other Provider Dr. Ajay Nieves Other Provider Dr. Dayron Workman Other Provider Unavailable Dr. Lucio Brown Other Provider Dr. Alen Burgess Other Provider Unavailab Daniels CEMENT RUBBER, CEMENT RUBBER-C Melania Other Provider Deperro SrLeigh DO, Dr. Humphrey Primary Care Provider Kam Ocampo MD Attending Provider Unavailable Dr. Jacobo Moya DO Emergency Provider Deperro SrLeigh DO, Dr. Humphrey Primary Care Provider Dr. Hayden Diaz DO Admit Provider Dr. Hayden Diaz DO Attending Provider Dr. Thanh Mclaughlin DO Attending Provider Dr. Hayden Diaz DO Other Provider Arnoldo LAU, Dr. Law Other Provider Dr. Neymar Cunningham MD Attending Provider Nilo HUGHES, Dr. Alfonso Attending Provider Octavio HUGHES, Dr. Blackmon Other Provider Deperro Sr. DO, Dr. Humphrey Primary Care Provider Terrence HUGHES, Kam Attending Provider Unavailable Dr. Jamie Beltrná DO Emergency Provider Hunter HUGHES, Dr. Mehta Admit Provider Hunter HUGHES, Dr. Mehta Attending Provider Hunter HUGHES, Dr. Mehta Referring Provider Deperro OLS, Kam Attending Unavailable Deperro Sr., Kam Primary Care Unavailable Deperro Sr., Kam Primary Care Unavailable Deperro OLS, Kam Attending Unavailable Deperro Sr., Kam Primary Care Unavailable Deperro OLS, Kam Attending Unavailable Deperro Sr., Kam Primary Care Unavailable Deperro OLS, Kam Attending Unavailable Deperro Sr., Kam Primary Care Unavailable Janine Harrison Consulting Unavailable Janine Harrison Admitting Unavailable Janine Harrison Referring Unavailable Hayden Diaz Attending Unavailable Hayden Diaz Consulting Unavailable Janine Harrison Attending Unavailable Nomi Kee Attending Unavailable Deperro OLS, Kam Attending Unavailable [...] Kam Primary Care Unavailable Deperro OLS, Kam Primary Care Unavailable Deperro OLS, Kam Referring Unavailable Deperro OLS, Kam Attending Unavailable Hunter HUGHES, Dr. Mehta Other Provider Dr. Hayden Diaz DO Attending Provider Dr. Nomi Kee DO Attending Provider Octavio HUGHES, Dr. Blackmon Referring Provider Terrence HUGHES, Kam Attending Provider Unavailable Philip HUGHES, Dr. Abel Attending Provider Dr. Hayden Diaz DO Referring Provider Deperro Sr. DO, Dr. Humphrey Referring Provider Deperro OLS, Kam Attending Unavailable Deperro Sr., Kam Primary Care Unavailable Harrison, Janine Admitting Unavailable Deperro Sr., Kam Primary Care Unavailable Harrison, Janine Referring Unavailable Harrison, Janine Attending Unavailable Harrison, Janine Consulting Unavailable Deperro OLS, Kam Attending Unavailable Deperro Sr., Kam Primary Care Unavailable Deperro Sr., Kam Primary Care Unavailable Deperro OLS, Kam Attending Unavailable Deperro Sr., Kam Primary Care Unavailable Hayden Diaz Admitting Unavailable Octavio, Neymar Attending Unavailable Borruso, Thanh Consulting Unavailable Hayden Diaz Consulting Unavailable Octavio, Neymar Consulting Unavailable Deperro Sr., Kam Primary Care Unavailable Boraliciaso Thanh Attending Unavailable Octavio, Neymar Referring Unavailable Deperro Sr., Kam Primary Care Unavailable Borruso, Thanh Attending Unavailable Deperro Sr., Kam Referring Unavailable Deperro Sr., Kam Primary Care Unavailable Kaden Corcoran Attending Unavailable Chilango, Nomi Attending Unavailable Hayden Diaz Consulting Unavailable Hayden Diaz Attending Unavailable Deperro OLS, Kam Attending Unavailable Deperro Sr., Kam Primary Care Unavailable Deperro OLS, Kam Attending Unavailable Deperro Sr., Kam Primary Care Unavailable Deperro OLS, Kam Attending Unavailable Deperro Sr., Kam Primary Care Unavailable Hayden Diaz Attending Unavailable Borruso, Thanh Attending Unavailable Deperro OLS, Kam Attending Unavailable Deperro Sr., Kam Primary Care Unavailable Harrison, Janine Admitting Unavailable Harrison, Janine Referring Unavailable Deperro Sr., Kam Primary Care Unavailable Octavio, Neymar Attending Unavailable Harrison, Janine Consulting Unavailable Mosteller Hayden Consulting Unavailable Deperro Sr., Kam Primary Care Unavailable Deperro OLS, Kam Attending Unavailable Deperro OLS, Kam Primary Care Unavailable Deperro OLS, Kam Referring Unavailable Deperro OLS, Kam Attending Unavailable Octavio, Neymar Referring Unavailable Deperro Sr., Kam Primary Care Unavailable Hayden Diaz Admitting Unavailable Neymar Cunningham Attending Unavailable Thanh Mclaughlin Consulting Unavailable Hayden Diaz Consulting Unavailable Neymar Cunningham Consulting Unavailable Neymar Cunningham Attending Unavailable Deperro Sr., Kam Primary Care Unavailable Kaden Corcoran Attending Unavailable Hayden Diaz Referring Unavailable Deperro Sr., Kam Primary Care Unavailable Colten Palacios Attending Unavailable Deperro Sr., Kam Primary Care Unavailable Deperro OLS, Kam Attending Unavailable Deperro OLS, Kam Attending Unavailable Deperro Sr., Kam Primary Care Unavailable Allergies Allergy Classification Reported Allergen(s) Allergy Type Date of Onset Reaction(s) Facility Aspirin (4 sources) Aspirin; Translations: [Aspirin TABS] Drug Allergy [facility] Work Phone: Benzodiazepines (8 sources) LORazepam; Translations: [Ativan TABS] Drug Allergy [facility] Work Phone: Cephalosporins (antibiotic) (4 sources) Cephalexin; Translations: [Keflex TABS] Drug Allergy [facility] Work Phone: Eszopiclone (4 sources) Eszopiclone; Translations: [Lunesta] Drug Allergy [facility] Work Phone: Fish (4 sources) fish, unspecified Food Allergy [facility] Work Phone: Lincomycin (4 sources) Lincomycin; Translations: [Lincocin SOLN] Drug Allergy [facility] Work Phone: Lincosamides (antibiotic) (4 sources) Clindamycin; Translations: [Clindamycin] Drug Allergy [facility] Work Phone: Macrolides (antibiotic) (4 sources) Clarithromycin; Translations: [Biaxin TABS] Drug Allergy [facility] Work Phone: Mold Extract (4 sources) Mold Extract Drug Allergy [facility] Work Phone: NSAIDs (4 sources) NSAIDs; Translations: [NSAIDs] Drug Allergy [facility] Work Phone: Penicillins (antibiotic) (4 sources) Penicillins; Translations: [Penicillins] Drug Allergy [facility] Work Phone: Pollen (4 sources) bee pollen Substance Allergy [facility] Work Phone: rofecoxib (4 sources) rofecoxib; Translations: [Vioxx TABS] Drug Allergy [facility] Work Phone: Serotonin Reuptake Inhibitors (SSRIs) (4 sources) traZODone; Translations: [trazodone] Drug Allergy [facility] Work Phone: Tetracyclines (antibiotic) (4 sources) Tetracyclines; Translations: [Tetracyclines] Drug Allergy [facility] Work Phone: (20 sources) Aspirin; Translations: [Aspirin TABS] Drug Allergy 03-02-19 23 Unknown [facility] (20 sources) bee pollen allergy to substance [facility] Work Phone: (20 sources) Cephalexin; Translations: [Keflex TABS] Drug Allergy 02-16-19 10 Unknown, Hives [facility] Work Phone: (20 sources) Clarithromycin; Translations: [Biaxin TABS] Drug Allergy 03-02-19 23 Unknown [facility] Work Phone: (20 sources) Clindamycin; Translations: [Clindamycin] Drug Allergy 10-14-19 21 Unknown [facility] Work Phone: (20 sources) fish, unspecified allergy to substance [facility] Work Phone: (20 sources) Lincomycin; Translations: [Lincocin SOLN] Drug Allergy 05-26-19 10 Unknown, Nausea And Vomiting, Rash [facility] Work Phone: (20 sources) LORazepam; Translations: [Ativan TABS] Drug Allergy 03-02-19 23 Unknown [facility] Work Phone: (20 sources) NSAIDs; Translations: [NSAIDs] drug allergy [facility] Work Phone: (20 sources) Penicillins; Translations: [Penicillins] drug allergy 03-02-19 [facility] (20 sources) rofecoxib; Translations: [Vioxx TABS] Drug Allergy 03-02-19 Unknown [facility] Work Phone: (20 sources) Tetracyclines; Translations: [Tetracyclines] drug allergy 03-02-19 [facility] (1 source) drug allergy [facility] Work Phone: (1 source) drug allergy [facility] Work Phone: (20 sources) Erythromycin Derivatives; Translations: [Erythromycin Derivatives] drug allergy [facility] Work Phone: (1 source) allergy to substance [facility] Work Phone: (1 source) allergy to substance [facility] Work Phone: (1 source) drug allergy [facility] Work Phone: (1 source) drug allergy [facility] Work Phone: (1 source) drug allergy [facility] Work Phone: (1 source) allergy to substance [facility] Work Phone: (1 source) allergy to substance [facility] Work Phone: (1 source) drug allergy [facility] Work Phone: (20 sources) Eszopiclone; Translations: [Lunesta] Drug Allergy [facility] Work Phone: (20 sources) Mold Extract; Translations: [MOLD] Drug Allergy 03-02-19 Unknown [facility] Work Phone: (20 sources) Temazepam; Translations: [Restoril] Drug Allergy [facility] Work Phone: (20 sources) traZODone; Translations: [trazodone] Drug Allergy 03-02-19 Unknown [facility] Work Phone: [phone] (20 sources) Other; Translations: [OTHER] allergy to substance 03-02-19 Unknown [facility] Work Phone: (20 sources) Doxazosin; Translations: [Cardura] Drug Allergy 03-02-19 Unknown [facility] Work Phone: (7 sources) Bee pollen; Translations: [BEE POLLEN] Drug Allergy 03-02-19 Unknown [facility] Work Phone: [phone] (20 sources) Erythromycin; Translations: [ERYTHROMYCIN BASE] Drug Allergy 03-02-19 Unknown [facility] Work Phone: [phone] (20 sources) Eszopiclone; Translations: [ESZOPICLONE] Drug Allergy 03-02-19 Unknown [facility] Work Phone: [phone] (7 sources) Non-steroidal anti-inflammatory agent; Translations: [NSAIDS (NON-STEROIDAL ANTI-INFLAMMATORY DRUG)] Drug Allergy 03-02-19 Unknown [facility] Work Phone: [phone] (5 sources) Penicillins Drug Allergy 03-02-19 Unknown [facility] Work Phone: [phone] (6 sources) Salicylic Acid; Translations: [SALICYLATES] Drug Allergy 02-16-19 10 GI bleeding [facility] Work Phone: (20 sources) Temazepam; Translations: [TEMAZEPAM] Drug Allergy 03-02-19 Unknown [facility] Work Phone: [phone] (5 sources) Tetracycline (class of antibiotic) Drug Allergy 03-02-19 Unknown [facility] Work Phone: (2 sources) Aspirin; Translations: [ASPIRIN] Drug Allergy 03-02-19 [facility] (4 sources) Cephalexin; Translations: [CEPHALEXIN] Drug Allergy 03-02-19 [facility] (5 sources) Clarithromycin; Translations: [CLARITHROMYCIN] Drug Allergy 10-14-19 [facility] (5 sources) Doxazosin; Translations: [DOXAZOSIN] Drug Allergy 03-02-19 Unknown [facility] (4 sources) Lincomycin; Translations: [LINCOMYCIN] Drug Allergy 03-02-19 [facility] (5 sources) LORazepam; Translations: [LORAZEPAM] Drug Allergy 10-14-19 [facility] (5 sources) rofecoxib; Translations: [ROFECOXIB] Drug Allergy 02-16-19 Unknown [facility] (4 sources) Fish; Translations: [FISH CONTAINING PRODUCTS] Drug Intolerance 10-14-19 Anaphylaxis [facility] (1 source) Eszopiclone Drug Allergy 10-14-19 Unknown [facility] (1 source) Fish - dietary Propensity to adverse reactions 10-14-19 Anaphylaxis [facility] (1 source) Non-steroidal anti-inflammatory agent Drug Allergy 10-14-19 [facility] (1 source) Penicillins Drug Allergy 02-16-19 [facility] (1 source) Salicylic Acid Drug Allergy 02-16-19 10 GI bleeding, Unknown [facility] (1 source) Temazepam Allergy to substance 03-02-19 [facility] (1 source) Tetracycline (class of antibiotic) Drug Allergy 02-16-19 10 [facility] (18 sources) Fish derivative; Translations: [fish derived] Allergy to substance 10-31-19 NEEDS FOLLOW-UP, PT UNSURE OF REACTION [facility] (16 sources) Nonsteroidal Anti-inflammatory Compounds Allergy to substance 10-31-19 NEEDS FOLLOW-UP, PT UNSURE OF REACTION [facility] (16 sources) Penicillins Allergy to substance 10-31-19 NEEDS FOLLOW-UP, PT UNSURE OF REACTION [facility] (16 sources) Salicylic Acid Drug Allergy 10-31-19 NEEDS FOLLOW-UP, PT UNSURE OF REACTION [facility] (16 sources) Tetracyclines Allergy to substance 10-31-19 NEEDS FOLLOW-UP, PT UNSURE OF REACTION [facility] (16 sources) Fish Containing Products Allergy to substance 10-31-19 NEEDS FOLLOW-UP, PT UNSURE OF REACTION [facility] (6 sources) cultivated mushroom extract Drug Allergy 07-26-19 PT UNSURE OF REACTION, Food Allergy [facility] (2 sources) Clindamycin Drug Allergy 08-03-19 [facility] (2 sources) Erythromycin Drug Allergy 08-03-19 [facility] (2 sources) Eszopiclone Drug Allergy 08-03-19 [facility] (2 sources) Mushroom (edible) Drug allergy (disorder) 08-03-19 [facility] (2 sources) NSAIDs Drug allergy (disorder) 08-03-19 [facility] (2 sources) Penicillins Drug allergy (disorder) 08-03-19 [facility] (2 sources) Salicylic Acid Drug Allergy 08-03-19 [facility] (2 sources) Temazepam Drug Allergy 08-03-19 [facility] (2 sources) Tetracyclines Drug allergy (disorder) 08-03-19 [facility] (2 sources) Fish Containing Products Drug allergy (disorder) 08-03-19 [facility] Medications Current Medications Medication Drug Class(es) [...] 1000 mg PO EVERY 8 HOURS 0 0 July 28, 2024 12:00am 1 g every 8 hourly for 1 week and then 1 g every 8 hourly as needed for severe pain Start: 07-25-2024 End: 07-28-2024 take 1 tablet by mouth twice daily Acetaminophen 500 mg tablet Discontinued 500 mg PO TWICE A DAY July 25, 2024 12:00am July 28, 2024 11:17am [ain Start: 10-30-2022 End: 08-17-2024 take 2 capsules by mouth twice daily Acetaminophen (Tylenol) 325 mg capsule Discontinued 650 mg PO TWICE A DAY October 30, 2022 12:00am August 17, 2024 9:23am pain Start: 10-30-2022 Acetaminophen (Tylenol) 325 mg capsule [...] / ipratropium bromide 0.167 mg/ml inhalation solution (10 sources) Anticholinergic, beta2-Adrenergic Agonist Start: 08-02-2024 take 1 mL by inhalation twice daily Ipratropium-Albuterol 0.5 mg-3 mg(2.5 mg base)/3 mL solution for nebulization Active 3 mL INHALATION TWICE A DAY August 02, 2024 12:00am Start: 07-25-2024 End: 08-17-2024 Ipratropium-Albuterol 0.5 mg -3 mg(2.5 mg base)/3 mL solution for nebulization Discontinued mL July 25, 2024 12:00am August 17, 2024 9:15am . Start: 10-10-2022 End: 10-16-2022 ipratropium-albuterol (Duo-N eb) 0.5-2.5 mg/3 mL nebulizer solution 3 mL apixaban 5 mg oral tablet (4 sources) Factor Xa Inhibitor Start: 07-28-2024 take 2.5 mg by mouth twice daily Apixaban (Eliquis) 5 mg Tablet Active 2.5 mg PO TWICE A DAY 0 0 July 28, 2024 12:00am For total 30 days bisacodyl 10 mg rectal suppository (6 sources) Stimulant Laxative Start: 08-17-2024 Bisacodyl 10 mg suppository Active 10 mg RC daily as needed August 17, 2024 12:00am Start: 10-27-2022 Bisacodyl 10 M G Rectal Suppository Quantity: 0 Refills: 0 Ordered: 27-Oct-2022 DO Start : 27-Oct-2022 Active Start: 10-11-2022 End: 10-12-2022 bisacodyl (Dulcolax) supposi tory 10 mg budesonide 0.25 mg/ml inhalation suspension (9 sources) Corticosteroid Start: 08-02-2024 take 0.5 mg by inhalation twice daily Budesonide 0.5 mg/2 mL suspension for nebulization Active 0.5 mg INHALATION TWICE A DAY August 02, 2024 12:00am Start: 07-25-2024 End: 08-05-2024 Budesonide 0.5 mg/2 mL suspe nsion for nebulization Discontinued mg July 25, 2024 12:00am August 05, 2024 11:38am scleroscope tester calcium carbonate 1250 mg or al tablet (20 sources) Start: 08-17-2024 Calcium Carbon ate (Oyster Shell Calcium 500) 500 mg calcium (1,250 mg) tablet Active 500 mg PO daily August 17, 2024 12:00am Start: 07-28-2024 take 1 tablet by dunia th three times daily at mealtime Calcium Carbonate 200 mg calcium (500 mg) Tablet,Chewable Active 500 mg PO 3 TIMES DAILY WITH MEALS 0 0 July 28, 2024 12:00am Start: 10-27-2022 End: 08-05-2024 Calcium Carbonate 500 mg ramiro cium (1,250 mg) tablet,chewable Discontinued PO July 25, 2024 12:00am July 28, 2024 11:19am . calcium carbonat e (Os-Ramiro) 1250 (500 Ca) MG tablet Take by mouth daily. 0 Active Oscal 500/200 D- 3 TABS Quantity: 0 Refills: 0 Ordered: 01-Mar-2013 DO Active CALCIUM CARBONATE-VITAMIN D3 ORAL (5 sources) CALCIUM CARBONATE-VITAMIN D3 ORAL Take by mouth. 0 Active cetirizine hydrochloride 5 mg oral tablet (20 sources) Histamine-1 Receptor Antagonist Start: 025 End: take 1 tablet by mouth once daily Cetirizine 5 mg tablet Active 5 mg PO DAILY August 02, 2024 12:00am Start: 10-30-2022 End: 08-02-2024 Cetirizine (All Day Allergy (Cetirizine)) 10 mg capsule Discontinued 5 mg PO DAILY October 30, 2022 12:00am August 02, 2024 4:22pm Start: 10-30-2022 take 1 capsule by mo [facility] once daily Cetirizine (All Day Allergy (Cetirizine)) [...] 08-Mar-2021 DO Active cholecalciferol 0.125 mg oral tablet (8 sources) Vitamin D Start: 08-02-2024 take 1 tablet by mouth once daily Cholecalciferol (Vitamin D3) (Vitamin D3) 125 mcg (5,000 unit) tablet Active 125 ug PO DAILY August 02, 2024 12:00am Start: 07-28-2024 End: 08-05-2024 take 1 capsule by mouth once daily Cholecalciferol (Vitamin D3) 125 mcg (5,000 unit) capsule Discontinued 125 ug PO DAILY 0 0 July 28, 2024 12:00am August 05, 2024 11:38am dicyclomine hydrochloride 10 mg oral capsule (20 sources) Anticholinergic Start: 07-25-2024 take 1 capsule by mouth three times daily Dicyclomine 10 mg capsule Active 10 mg PO THREE TIMES A DAY July 25, 2024 12:00am . Start: 10-30-2022 End: 08-05-2024 take 1 capsule by mouth every six hours Dicyclomine 10 mg capsule Discontinued 10 mg PO EVERY 6 HOURS October 30, 2022 12:00am August 05, 2024 11:40am digestive issues Start: 07-30-2020 End: 10-16-2022 dicyclomine (Bentyl) capsule 10 mg Start: 11-14-2019 take 1 capsule by [facility] every eight hours Dicyclomine HCl - 10 MG Oral Capsule TAKE 1 CAPSULE Every 8 hours PRN diarrhea, stomach cramps Quantity: 90 Refills: 3 Christ Gardiner DO Start : 14-Nov-2019 Active take 1 capsule by mo [facility] four times daily Dicyclomine HCl - 10 MG Oral Capsule TAKE 1 CAPSULE 4 TIMES DAILY Quantity: 90 Refills: 3 Ordered: 18-Oct-2021 Christ Gardiner DO Active Emollient cream (2 sources) Start: 08-17-2024 Emollient crea m Active [facility] TOPICAL August 17, 2024 12:00am ferrous sulfate 325 mg oral tablet (20 sources) Start: 07-28-2024 End: 08-05-2024 take 1 tablet by mouth once daily Ferrous Sulfate 325 mg (65 mg iron) tablet Active 325 mg PO DAILY August 02, 2024 12:00am Start: 05-30-2016 End: 10-07-2022 take 1 tablet by mouth once daily Ferrous Sulfate 325 (65 Fe) MG Oral Tablet Take 1 tablet once daily Refills: 0 DO Start : 30-May-2016 Active Start: 05-30-2016 take 1 tablet by [facility] three times daily at mealtime Ferrous Sulfate [...] Active 15.8 ML Bottle Food Supplemt, Lactose-Reduced (Boost Breeze Nutritional) 0.04-1.05 gram-kcal/mL liquid (2 sources) Start: 08-17-2024 Food Supplemt, Lactose-Reduced (Boost Breeze Nutritional) 0.04-1.05 gram-kcal/mL liquid Active 0 PO EVERY MORNING August 17, 2024 12:00am 4oz orally every morning; Food Supplemt, Lactose-Reduced (Ensure) liquid (14 sources) Start: 10-30-2022 take 1 mL by [...] oral tablet (20 sources) Loop Diuretic Start: 08-05-2024 take 2 tablets by mouth in the morning Furosemide 40 mg tablet Active 20 mg PO DAILY 0 30 0 August 05, 2024 11:44am fluid retention Extra 20 mg in the morning if gaining weight more than 2 pounds in 3 to 4 days Start: 07-28-2024 End: 08-05-2024 take 1 tablet by mouth once daily Furosemide 40 mg tablet Discontinued 40 mg PO DAILY August 02, 2024 12:00am August 05, 2024 11:44am fluid retention Start: 01-12-2017 End: 08-02-2024 take 1 tablet by mouth once daily Furosemide 20 mg tablet Discontinued 20 mg PO DAILY July 25, 2024 12:00am July 28, 2024 11:22am . Start: 01-12-2017 take 2 tablets by mo [...] Start: 01-12-2017 take 0.5 tablet by m out once daily Furosemide 20 MG Oral Tablet 1/2 tab daily Quantity: 45 Refills: 0 Ordered: 29-Oct-2020 Christ Gardiner DO Start : 12-Jan-2017 Active guaiFENesin 20 mg/ml oral solution (16 sources) Start: 08-17-2024 take 200 mg by mouth every four hours as needed Guaifenesin 100 mg/5 mL liquid Active 200 mg PO Q4H as needed August 17, 2024 12:00am Start: 10-30-2022 End: 08-02-2024 take 200 mg by mouth every eight hours Guaifenesin (Chest Congestion Relief) 100 mg/5 mL liquid Discontinued 200 mg PO EVERY 8 HOURS October 30, 2022 12:00am August 02, 2024 4:42pm Inulin (14 sources) Start: 10-30-2022 take 1 tablet by mouth once daily Inulin (Fiber Gummies) 2 gram tablet,chewable Active 5 g PO DAILY October 30, 2022 12:00am [...] GM PO DAILY October 30, 2022 12:00am Lactobac No.30-Bifidobact No .4 (Ultimate Harrison Probiotic) 30 billion cell capsule,delayed release(DR/EC) (14 sources) Start: 10-30-2022 Lactobac No.30 -Bifidobact No.4 [...] CAP PO DAILY October 30, 2022 12:00am loperamide hydrochloride 2 mg oral capsule (2 sources) Opioid Agonist Start: 08-17-2024 take 1 capsule by mouth every six hours as needed Loperamide (Anti-Diarrheal (Loperamide)) 2 mg capsule Active 2 mg PO EVERY 6 HOURS as needed August 17, 2024 12:00am menthol 0.05 mg/mg topical gel (2 sources) Start: 08-17-2024 Menthol (Biofr eeze (Menthol)) 5 % gel Active NMA TOPICAL August 17, 2024 12:00am Multivitamin (Daily Multi-Vitamin) tablet (14 sources) Start: 10-30-2022 Multivitamin ( Daily Multi-Vitamin) [...] tab let Take by mouth. 0 Active pantoprazole 40 mg delayed release oral tablet (20 sources) Proton Pump Inhibitor Start: End: take 1 tablet by mouth once daily Pantoprazole 40 mg tablet,delayed release (DR/EC) Active 40 mg PO DAILY July 25, 2024 12:00am . take 1 tablet by mouth twice artur [...] meq PO DAILY July 25, 2024 12:00am . Start: 10-30-2022 End: 08-05-2024 take 1 tablet by mouth once daily Potassium Chloride (K-Tab) 20 mEq tablet extended release Discontinued 20 meq PO DAILY October 30, 2022 12:00am August 05, 2024 11:42am Start: 10-11-2022 End: 10-16-2022 20 mEq, Oral, [...] Christ Gardiner DO Start : 09-May-2013 Active ascorbic acid 500 mg oral capsule (8 sources) Vitamin C Start: 08-02-2024 End: 08-05-2024 take 1 capsule by mouth twice daily Ascorbic Acid (Vitamin C) 500 mg capsule Discontinued 500 mg PO TWICE A DAY August 02, 2024 12:00am August 05, 2024 11:37am Start: 07-28-2024 take 1 tablet by dunia th twice daily Ascorbic Acid (Vitamin C) 500 mg tablet Active 500 mg PO TWICE A DAY 60 2 July 28, 2024 12:00am atorvastatin 40 mg oral tablet (20 sources) HMG-CoA Reductase Inhibitor Start: 11-02-2022 End: 08-05-2024 take 1 tablet by mouth once daily Atorvastatin 40 mg tablet Discontinued 40 mg PO DAILY July 25, 2024 12:00am August 05, 2024 11:37am hyperlipidemia Start: 10-05-2017 End: 11-02-2022 take 1 tablet by mouth at bedtime Atorvastatin 10 mg tablet Discontinued 10 mg PO AT BEDTIME October 30, 2022 12:00am November 02, 2022 12:09pm azelastine hydrochloride 0.137 mg/actuat metered dose nasal spray (20 sources) Histamine-1 Receptor Antagonist Start: 10-30-2022 End: 08-05-2024 Azelastine 137 mcg (0.1 %) spray,non-aerosol Discontinued INTRANASAL July 25, 2024 12:00am August 05, 2024 11:45am allergies Start: 10-30-2022 take 1 spray(s) nasa l [...] in each nostril as directed 0 Active 24 hr buPROPion hydrochloride 150 mg extended release oral tablet (20 sources) Aminoketone Start: 10-30-2022 End: 08-05-2024 take 1 tablet by mouth once daily Bupropion Hcl 150 mg tablet extended release 24 hr Discontinued 150 mg PO DAILY July 25, 2024 12:00am August 05, 2024 11:38am . Start: 02-16-2017 End: 10-16-2022 take 150 mg by mouth once daily Bupropion Hcl Active 1 50 MG PO DAILY October 30, 2022 12:00am Oscal 500/200 D-3 TABS (20 sources) Vitamin D Oscal 500/200 D- 3 TABS Refills: 0 Active Oscal 500/200 D- 3 TABS Refills: 0 DO Active Centrum Silver TABS (20 sources) Centrum Silver T ABS Refills: 0 Active Centrum Silver T ABS Refills: 0 DO Active chromium picolinate 0.1 mg / inulin 2000 mg chewable tablet (4 sources) Start: 08-02-2024 End: 08-05-2024 take 2-100 tablets by mouth once daily Inulin-Chromium Picolinate (Fiber Select Gummies) 2-100 gram-mcg tablet,chewable Discontinued 1 {tbl} PO DAILY August 02, 2024 12:00am August 05, 2024 11:43am clopidogrel 75 mg oral tablet (20 sources) [id number] Platelet Inhibitor Start: 10-30-2022 End: 08-05-2024 take 1 tablet by mouth once daily Clopidogrel 75 mg tablet Discontinued 75 mg PO DAILY July 25, 2024 12:00am August 05, 2024 11:48am . Start: 09-01-2012 End: 10-16-2022 Clopidogrel Active 75 MG PO .thuOctober 30, 2022 12:00am Start: 09-01-2012 take 1 tablet by dunia th three times weekly, then take 1 tablet by mouth once clopidogrel (Plavix) 75 mg tablet Take 1 tablet (75 mg) by mouth 3 times a week. TAKE 1 TABLET BY MOUTH EVERY [id number] 0 09/01/2012 Active Start: 09-01-2012 take 1 tablet by dunia th every other day Clopidogrel Bisulfate 75 MG Oral Tablet TAKE 1 TABLET BY MOUTH EVERY OTHER DAY Quantity: 90 Refills: 3 Ordered: 08-Mar-2021 Apple Zayas Start : 01-Sep-2012 Active Docusate (20 sources) take 1 capsule [...] Colace CAPS Refi lls: 0 DO Active docusate sodium 50 mg / sennosides, intermediate 8.6 mg oral tablet (15 sources) Start: 08-02-2024 End: 08-05-2024 Sennosides-Docusate Sodium (Senexon-S) 8.6-50 mg tablet Discontinued 1 {tbl} PO DAILY August 02, 2024 12:00am August 05, 2024 11:42am constipation Start: 07-28-2024 Sennosides-Doc usate Sodium (Stimulant Laxative Plus) 8.6-50 mg Tablet Active 2 {tbl} PO TWICE A DAY 0 0 July 28, 2024 12:00am Start: 07-25-2024 End: 07-28-2024 Sennosides-Docusate Sodium ( Senexon-S) 8.6-50 mg tablet Discontinued 1 {tbl} PO DAILY July 25, 2024 12:00am July 28, 2024 11:23am . Start: 10-27-2022 Senna S 8.6-50 MG Oral Tablet Quantity: 0 Refills: 0 Ordered: 27-Oct-2022 DO Start : 27-Oct-2022 Active Start: 10-11-2022 End: 10-14-2022 senna-docusate sodium (Senok ot-S) 8.6-50 MG tablet 2 tablet doxazosin 2 mg oral tablet (20 sources) alpha-Adrenergic Simon Start: 10-30-2022 End: 08-05-2024 take 1 tablet by mouth once daily Doxazosin 2 mg tablet Discontinued 2 mg PO DAILY July 25, 2024 12:00am August 05, 2024 11:40am . Start: 10-11-2022 End: 10-16-2022 take 2 mg by mouth once daily 2 mg, Oral, Nightly, Fir st dose on 10/11/22 at 2100 Start: 09-18-2022 take 2 tablets by mo uth once daily doxazosin (Cardura) 1 mg tablet Indications: Benign essential hypertension Take 2 tablets (2 mg) by mouth once daily. 180 tablet 0 09/18/2022 Active Start: 05-30-2022 take 2 tablets by mo nhh once daily doxazosin (Cardura) 1 mg tablet [...] 2 mg by mouth Nightly. 0 Active 0.4 ml enoxaparin sodium 100 mg/ml [...] Ordered: 27-Oct-2022 DO Start : 27-Oct-2022 Active gabapentin 100 mg oral capsule (20 sources) Anti-epileptic Agent Start: 07-25-2024 End: 08-05-2024 Gabapentin 100 mg capsule Discontinued PO July 25, 2024 12:00am August 05, 2024 11:48am . Start: 10-30-2022 take 1 tablet by dunia th twice daily Gabapentin 600 mg tablet Active [...] Christ Gardiner DO Start : 29-Sep-2017 Active 1 ml HYDROmorphone hydrochloride 1 mg/ml [...] iopamidol (Isovue-370) 76 % injection 75 mL 24 hr isosorbide mononitrate 30 mg extended release oral tablet (20 sources) Nitrate Vasodilator Start: 09-01-2012 End: 08-17-2024 take 1 tablet by mouth once daily, then take 1 tablet by mouth every twenty-four hours Isosorbide Mononitrate 30 mg tablet extended release 24 hr Discontinued 30 mg PO DAILY October 30, 2022 12:00am August 17, 2024 9:13am Start: 09-01-2012 End: 10-16-2022 take 1 tablet by mouth once daily 60 mg, Oral, Daily, First dose on 10/11/22 at 0915 Do not chew or crush ER tablets; may be divided in half. Due to insoluble matrix embedding, ER tablets that are scored may be split. levoFLOXacin 500 mg oral tablet (6 sources) [...] EVERY DAY Quantity: 90 Refills: 1 Rashad Maralnell Christ LAU Start : 01-Sep-2012 Active magnesium [...] sodium chloride 0.9 % 100 mL IVPB metoprolol tartrate 25 mg oral tablet (20 sources) beta-Adrenergic Simon Start: 10-30-2022 End: 08-05-2024 take 1 tablet by mouth twice daily Metoprolol Tartrate 25 mg tablet Discontinued 25 mg PO TWICE A DAY July 25, 2024 12:00am August 05, 2024 11:41am . Start: 09-06-2013 take 1 tablet by dunia [...] daily Quantity: 30 Refills: 3 Ordered: 29-Oct-2020 Rashad Agosto Arslan LAUon Start : 06-Sep-2013 Active Start: 09-06-2013 take 1 tablet by dunia th every twelve hours Metoprolol Tartrate 50 MG Oral Tablet TAKE 1 TABLET BY MOUTH EVERY 12 HOURS Quantity: 180 Refills: 3 Ordered: 29-Feb-2020 Christ Gardiner DO Start : 06-Sep-2013 Active mirtazapine 30 mg oral tablet (20 sources) Start: 10-11-2022 End: 10-16-2022 take 30 mg by mouth once daily 30 mg, Oral, Nightly, First dose on 10/11/22 at 2100 Start: 11-22-2020 End: 08-05-2024 take 1 tablet by mouth at bedtime Mirtazapine 30 mg tablet Discontinued 30 mg PO AT BEDTIME July 25, 2024 12:00am August 05, 2024 11:43am . Start: 11-22-2020 take 1 tablet by dunia [...] tablet (20 sources) Leukotriene Receptor Antagonist Start: 10-30-2022 End: 08-05-2024 take 1 tablet by mouth once daily Montelukast 10 mg tablet Discontinued 10 mg PO DAILY July 25, 2024 12:00am August 05, 2024 11:43am . Start: 05-26-2018 End: 10-16-2022 take 10 mg by mouth at bedtime Montelukast Active 10 M G PO AT BEDTIME October 30, 2022 12:00am 1 ml morphine sulfate 4 mg/ml cartridge [...] morphine injection 4 mg Multiple Vitamins Oral Table t (3 sources) Multiple Vitamin s Oral Tablet Refills: 0 DO Active Multiple Vitamins Oral Table t (20 sources) Multiple Vitamin s Oral Tablet Quantity: 0 Refills: 0 Ordered: 12-Mar-2020 DO Active Multivitamin With Folic Acid (Daily-Carmelo (With Folic Acid)) 400 mcg tablet (5 sources) Start: 07-25-2024 End: 08-05-2024 Multivitamin With Folic Acid (Daily-Carmelo (With Folic Acid)) 400 mcg tablet Discontinued 1 {tbl} PO DAILY July 25, 2024 12:00am August 05, 2024 11:42am . Start: 07-25-2024 Multivitamin W ith Folic Acid (Daily-Carmelo (With Folic Acid)) 400 mcg tablet Active 1 {tbl} PO DAILY July 25, 2024 12:00am nitroglycerin 0.4 mg sublingual tablet (20 sources) Nitrate Vasodilator Start: 11-30-2018 End: 05-30-2022 Nitroglycerin 0.4 MG Sublingual Tablet Sublingual DISSOLVE 1TAB IN MOUTH AT 1ST OF ATTACK MAY REPEAT EVERY 5MIN UNTIL RELIEF AFTER 3TABS CALL MED HELP Quantity: 1 Refills: 3 Ordered: 29-Feb-2020 Christ Gardiner DO Start : 30-Nov-2018 Active omeprazole 20 mg delayed release oral capsule (20 sources) Proton Pump Inhibitor Start: 10-22-2017 take 1 capsule by mouth twice daily Omeprazole 20 MG Oral Capsule Delayed Release TAKE 1 CAPSULE TWICE DAILY. Quantity: 180 Refills: 1 Ordered: 22-May-2020 Christ Gardiner DO Start : 22-Oct-2017 Active Start: 10-22-2017 take 1 capsule by [facility] [place] once daily Omeprazole 20 MG Oral Capsule [...] DAILY Quantity: 270 Refills: 1 Rashad Agosto Christ LAU Start : 12-Jan-2017 Active polyethylene glycol 3350 21473 mg powder for oral solution (12 sources) Osmotic Laxative Start: 07-28-2024 End: 08-05-2024 Polyethylene Glycol 3350 (Miralax) 17 gram/dose powder Discontinued 17 g PO TWICE A DAY August 02, 2024 12:00am August 05, 2024 11:42am Start: 10-12-2022 End: 11-15-2022 Polyethylene Glycol 3350 Pow lizeth Quantity: 0 Refills: 0 Ordered: 27-Oct-2022 DO Start : 27-Oct-2022 Active polyethylene glycol 400 4 mg /ml / propylene glycol 3 mg/ml ophthalmic solution (2 sources) Start: 10-27-2022 Systane 0.4-0. 3 % Ophthalmic Solution Quantity: 0 Refills: 0 Ordered: 27-Oct-2022 DO Start : 27-Oct-2022 Active Polyethylene Glycols (1 source) Start: 10-27-2022 Polyethylene G lycol 3350 Powder Quantity: 0 Refills: 0 Ordered: [...] 1 tablet, Oral, Daily, First dose on Thu10/11/22 at 0915 vancomycin (Vancocin) 1,000 mg in [...] Resolved: 3 06-10-2022 Episodic Acute cerebrovascular disease (20 sources) Cerebrovascular accident; Translations: [Cerebral infarction, unspecified] 10-30-2022 Chronic Acute myocardial infarction (20 sources) Subendocardial infarction, initial episode of care; Translations: [Acute Non-Q-wave Myocardial Infarction - Initial Care ([place])] Chronic Comment on above: Added by Problem Clarice Hendricks; 2012-08-06; Allergic reactions (7 sources) Allergy status to other drugs, medicaments and biological substances status; Translations: [Allergy status to analgesic agent status] Onset: 8 10-07-2022 Episodic Anxiety disorders (20 sources) Anxiety disorder, unspecified; Translations: [Anxiety] Onset: 8 Chronic Chronic kidney disease (20 sources) Chronic kidney disease stage 3; Translations: [Chronic kidney disease stage 4] Onset: 3 03-02-2022 Chronic Chronic kidney disease (4 sources) Chronic kidney disease; Translations: [Chronic kidney [...] disease (20 sources) Atherosclerotic heart disease of [place] coronary artery without angina pectoris; 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] Onset: 8 05-30-2022 Chronic Comment on above: Added by Problem Clarice Hendricks; 2012-10-05; Coronary atherosclerosis and other heart disease [...] Onset: 3 Chronic Deficiency and other anemia (5 sources) Anemia, unspecified; Translations: [Anemia, unspecified] Onset: 8 Episodic Deficiency and other anemia (20 sources) Anemia; [...] bleed] Onset: 8 Chronic E Codes: Fall (10 sources) Fall; Translations: [Unspecified fall, initial encounter] [...] Episodic Fracture of neck of femur (hip) (14 sources) Closed intertrochanteric fracture; Translations: [Displaced intertrochanteric fracture of right femur, initial encounter for closed fracture] Onset: 5 07-25-2024 Episodic Gastrointestinal hemorrhage (12 sources) Gastrointestinal hemorrhage; Translations: [Gastrointestinal hemorrhage, unspecified] Onset: 1 11-21-2021 Episodic Genitourinary symptoms and ill-defined conditions (20 sources) Urgent desire to urinate; Translations: [Increased frequency of urination] Episodic Gout and other crystal arthropathies (3 sources) Gout; Translations: [Gout, unspecified] Onset: 1 11-21-2021 Chronic Heart valve disorders (20 sources) Nonrheumatic mitral (valve) insufficiency; Translations: [Aortic valve stenosis] Onset: 8 04-15-2022 Chronic Hemorrhoids (20 sources) Internal hemorrhoids; Translations: [Internal hemorrhoids without mention of complication] Episodic Comment on above: Added by Problem Clarice Hendricks; 2012-08-06; Hypertension with complications and secondary hypertension (3 sources) Hypertensive heart disease with heart failure; [...] [Cardiomegaly] Chronic Comment on above: Added by Hallie Hendricks; 2012-10-05; Other circulatory disease (20 sources) H/O: heart disorder; Translations: [Personal history of other diseases of circulatory system] 10-30-2022 Episodic Comment on above: Added by Hallie Hendricks; 2012-10-05; Other circulatory disease (20 sources) Personal history of other diseases of circulatory system; Translations: [Acute Myocardial Infarction] Episodic Other circulatory disease (20 sources) H/O: angina pectoris; Translations: [Personal history of other diseases of circulatory system] Episodic Comment on above: Added by Hallie Hendricks; 2013-8-27; Other circulatory disease (7 sources) Personal history of other diseases of the circulatory system; Translations: [Personal history of other diseases of circulatory system] 10-30-2022 Episodic Other circulatory disease (10 sources) Elevated blood pressure; Translations: [Elevated blood-pressure reading, without diagnosis of hypertension] 07-25-2024 Episodic Other connective tissue disease (1 source) Presence of unspecified artificial knee joint; Translations: [Presence of unspecified artificial knee joint] Onset: 5 Chronic Other connective tissue disease (20 sources) Spasm; [...] [Diarrhea] Episodic Comment on above: Added by Problem Lis t Migration; 2012-04-06; Moved to [facility] Jan 01 2013 4:07PM; Other gastrointestinal [...] organs] Episodic Comment on above: Added by Problem Clarice young Migration; 2012-08-06; Other hereditary and degenerative nervous system conditions (20 sources) Cerebral degeneration, unspecified; Translations: [Cerebral Degenerations And Movement Disorders] Chronic Comment on above: Added by Problem Clarice young Migration; 2012-08-06; Other lower respiratory disease (20 sources) Personal history of other diseases of the respiratory system; Translations: [History of pleural effusion] Episodic Comment on above: Added by Problem Clarice young Migration; 2012-08-06; Other lower respiratory disease (20 sources) [...] spinal cord] Chronic Other nervous system disorders (2 sources) Difficulty in walking, not elsewhere classified; Translations: [Difficulty in walking, not elsewhere classified] Onset: 5 Chronic Other non-traumatic joint disorders (1 source) Pain in right knee; Translations: [Pain in right knee] Onset: 5 Episodic Other nutritional; endocrine; and [...] and visceral atherosclerosis (20 sources) Atherosclerosis of [place] arteries of the extremities with intermittent claudication; Translations: [Unspecified vascular insufficiency of intestine] Onset: 1 03-02-2022 Chronic Comment on above: Added by Problem Clarice hector Migration; 2012-08-06; Pneumonia (except that caused by tuberculosis or sexually transmitted disease) (20 sources) Pneumonia; Translations: [Infective pneumonia] Onset: 3 06-01-2022 Episodic Residual codes; unclassified (20 sources) Insomnia; Translations: [Insomnia, unspecified] Onset: 3 04-15-2022 Episodic Residual codes; unclassified (20 sources) Altered mental status; Translations: [Altered mental status] 08-02-2024 Episodic Residual codes; unclassified (20 sources) Postmenopausal state; Translations: [Asymptomatic postmenopausal status (age-related) (natural)] 04-15-2022 Episodic Residual codes; unclassified (10 sources) Ankle edema; Translations: [Effusion of joint, ankle and foot] Episodic Residual codes; unclassified (20 sources) Body mass index 20-24 - normal; Translations: [Body Mass Index between 19-24, adult] Episodic Residual codes; unclassified (2 sources) Altered mental status, unspecified; Translations: [Altered mental status, unspecified] Onset: Episodic Screening and history of mental health and substance abuse codes (20 sources) H/O: psychiatric disorder; Translations: [H/O: depression] Episodic Comment on above: Added by Problem Clarice young Migration; 2012-08-06; Spondylosis; intervertebral disc disorders; other back problems (20 sources) Lumbar spondylosis; Translations: [Lumbosacral spondylosis without myelopathy] Onset: 3 03-02-2022 Chronic Comment on above: Added by Problem Clarice young Migration; 2012-04-06; Moved to [facility] Jan 01 2013 4:07PM; Spondylosis; intervertebral [...] / Z88.1(ICD-10) Onset: 8 Unclassified (1 source) FPC (current) use of aspirin / Z79.82(ICD-10) Onset: [...] / K52.9(ICD-10) Onset: 8 Unclassified (1 source) termination clerk (current) use of 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/antipl atelets / Z79.02(ICD-10) [...] infection] Onset: 8 Episodic Biliary tract disease (2 sources) Calculus of gallbladder and bile duct without [...] [Iron deficiency anemia, unspecified] Onset: 8 Episodic Influenza (2 sources) Influenza due to other identified influenza virus with other respiratory manifestations; Translations: [Influenza due to other identified influenza virus with other respiratory manifestations] Onset: 5 Episodic Intestinal infection (20 sources) Clostridium difficile [...] 3 05-30-2022 Episodic Other lower respiratory disease (7 sources) Hypoxemia; Translations: [Hypoxemia] Onset: 3 Episodic Other lower respiratory disease (1 source) Other nonspecific abnormal finding of lung field; Translations: [Other nonspecific abnormal finding of lung field] Onset: 3 Episodic Other nervous system disorders (1 source) Dysarthria and anarthria; Translations: [Dysarthria and anarthria] Onset: 8 Episodic Other nervous system disorders (2 sources) Other lack of coordination; Translations: [Other lack [...] Test Name Value Interpretation Reference Range Facility HIP, UNI W/ Pelvis 2-3 Views on 08-17-2024 HIP, UNI W/ Pelvis 2-3 Views Normal [facility] Knee 3 Viewson 08-17-2024 Knee 3 Views Normal [facility] Orthopedic Visit Reporton Orthopedic Visit Report Normal [facility] Activated partial thrombopla stin time (aPTT) in platelet poor plasma by coagulation aOrdered By: Jw Evans on 08-04-2024 aPTT Coag (PPP) [Time] 29.9 s 24.1-36.2 [facility] Anion gap in Serum or Plasma Ordered By: Hayden Diaz on 08-04-2024 Anion gap [Moles/Vol] 12 mmol/L 06-23 [facility] BUN/creatinine ratioOrdered By: Hayden Diaz on 08-04-2024 Urea nitrogen/Creatinine [Mass ratio] 15.8 mg/mg 11-28 [facility] Basic Metabolic Profile (BMP )on 08-04-2024 BUN/CRE 15.8 RATIO Normal 11-28 [facility] Comment on above: Performed By: #### L 100.0500, L500.2500 ####[facility] [id number] [place], [address] Calcium [Mass/Vol] 9.4 mg/dL Normal 7.6-11.0 [facility] Comment on above: Performed By: #### L 100.0500, L500.2500 ####[facility] [id number] [place], [address] Chloride [Moles/Vol] 102 mmol/L Normal 98-108 [facility] Comment on above: Performed By: #### L 100.0500, L500.2500 ####[facility] [address] [place], [address] CO2 [Moles/Vol] 29.5 mmol/L Normal 21.0-32.0 [facility] Comment on above: Performed By: #### L 100.0500, L500.2500 ####[facility] [id number] [place], [address] ECRCL 34.91 ml/min Low 50-250 [facility] Comment on above: Performed By: #### L 100.0500, L500.2500 ####[facility] [id number] [place], [address] GAP 12 Normal 06-23 [facility] Comment on above: Performed By: #### L 100.0500, L500.2500 ####[facility] [id number] [place], [address] GFR/1.73 sq M.predicted among non-blacks MDRD (S/P/Bld) [Vol rate/Area] 78 mL/min/{1.73_m2} Normal >60 [facility] Comment on above: Result Comment: mL/m in/1.73m2 CKD-EPI Creatinine Equation (2020) Performed By: #### L 100.0500, L500.2500 ####[facility] [id number] [place], [address] Potassium [Moles/Vol] 3.4 mmol/L Normal 3.3-5.1 [facility] Comment on above: Performed By: #### L 100.0500, L500.2500 ####[facility] [address] [place], [address] Sodium [Moles/Vol] 143 mmol/L Normal 133-145 [facility] Comment on above: Performed By: #### L 100.0500, L500.2500 ####[facility] [address] [place], [address] Creatinine [Mass/Vol] 0.74 mg/dL Normal 0.70-1.20 [facility] Comment on above: Performed By: #### L 100.0500, L500.2500 ####[facility] [address] [place], [address] Glucose [Mass/Vol] 98 mg/dL Normal 70-99 [facility] Comment on above: Performed By: #### L 100.0500, L500.2500 ####[facility] [address] [place], [address] Urea nitrogen [Mass/Vol] 12 mg/dL Normal 4-19 [facility] Comment on above: Performed By: #### L 100.0500, L500.2500 ####[facility] [id number] [place], [address] CBC-Complete Blood Cnt No Di ffon 08-04-2024 Erythrocyte distribution width (RBC) [Ratio] 16.7 % High 11.6-14.6 [facility] Comment on above: Performed By: #### L 100.0500, L500.2500 ####[facility] [address] [place], [address] Hematocrit (Bld) [Volume fraction] 32.0 % Low 37-47 [facility] Comment on above: Performed By: #### L 100.0500, L500.2500 ####[facility] [address] [place], [address] Hemoglobin (Bld) [Mass/Vol] 11.0 g/dL Low 12.0-15.0 [facility] Comment on above: Performed By: #### L 100.0500, L500.2500 ####[facility] [address] [place], [address] MCH (RBC) [Entitic mass] 33.6 pg High 27.0-32.0 [facility] Comment on above: Performed By: #### L 100.0500, L500.2500 ####[facility] [address] [place], [address] MCHC (RBC) [Mass/Vol] 34.4 g/dL Normal 32-36 [facility] Comment on above: Performed By: #### L 100.0500, L500.2500 ####[facility] [address] [place], [address] MCV (RBC) [Entitic vol] 97.9 fL Normal 81-99 [facility] Comment on above: Performed By: #### L 100.0500, L500.2500 ####[facility] [address] [place], [address] Platelet mean volume (Bld) [Entitic vol] 8.7 fL Normal 6.2-12.0 [facility] Comment on above: Performed By: #### L 100.0500, L500.2500 ####[facility] [address] [place], [address] Platelets (Bld) [#/Vol] 286 10*3/uL Normal 150-450 [facility] Comment on above: Performed By: #### L 100.0500, L500.2500 ####[facility] [address] [place], [address] RBC (Bld) [#/Vol] 3.27 10*6/uL Low 4.2-5.4 [facility] Comment on above: Performed By: #### L 100.0500, L500.2500 ####[facility] [address] [place], [address] RDW SD 50.4 fl High 35.1-43.9 [facility] Comment on above: Performed By: #### L 100.0500, L500.2500 ####[facility] [address] [place], [address] WBC (Bld) [#/Vol] 7.8 10*3/uL Normal 4.4-11.0 [facility] Comment on above: Performed By: #### L 100.0500, L500.2500 ####[facility] [address] [place], [address] Carbon dioxide, total [Moles /volume] in Central venous bloodOrdered By: Hayden Diaz on 08-04-2024 CO2 [Moles/Vol] 29.5 mmol/L 21.0-32.0 [facility] Chloride assayOrdered By: Elpidio Diaz on 08-04-2024 Chloride [Moles/Vol] 102 mmol/L 98-108 [facility] EGD Reporton 08-04-2024 EGD Report Normal [facility] Erythrocyte distribution wid th ratioOrdered By: Hayden Diaz on 08-04-2024 Erythrocyte distribution width (RBC) [Ratio] 16.7 % High 11.6-14.6 [facility] Erythrocyte distribution wid th standard deviationOrdered By: Hayden Diaz on 08-04-2024 Erythrocyte distribution width (RBC) [Ratio] 50.4 fl High 35.1-43.9 [facility] Glomerular filtration rate ( GFR) estimation/1.73 sq m using serum, plasma, or whole bOrdered By: Hayden Diaz on 08-04-2024 GFR/1.73 sq M.predicted among non-blacks MDRD (S/P/Bld) [Vol rate/Area] 78 mL/min/{1.73_m2} >60 [facility] Comment on above: mL/min/1.73m2 CKD-EP I Creatinine Equation (2020) Hematocrit Auto (Bld) [Volum e fraction]Ordered By: Hayden Diaz on 08-04-2024 Hematocrit (Bld) [Volume fraction] 32.0 % Low 37-47 [facility] Hemoglobin measurementOrdere d By: Hayden Diaz on 08-04-2024 Hemoglobin (Bld) [Mass/Vol] 11.0 g/dL Low 12.0-15.0 [facility] International normalized rat io (INR) calculationOrdered By: Jw Evans on 08-04-2024 INR Coag (Bld) [Relative time] 1.1 {INR} [facility] MCV (mean corpuscular volume ) determinationOrdered By: Hayden Diaz on 08-04-2024 MCV (RBC) [Entitic vol] 97.9 fL 81-99 [facility] MR/POSTOP.ANEon 08-04-2024 MR/POSTOP.ANE Normal [facility] MR/[id number] 08-04-2024 MR/POSTOPAN2 Normal [facility] Mean corpuscular hemoglobin (MCH) determinationOrdered By: Hayden Diaz on 08-04-2024 MCH (RBC) [Entitic mass] 33.6 pg High 27.0-32.0 [facility] Mean corpuscular hemoglobin concentration (MCHC) determinationOrdered By: Hayden Diaz on 08-04-2024 MCHC (RBC) [Mass/Vol] 34.4 g/dL 32-36 [facility] Mean platelet volume determi nationOrdered By: Hayden Diaz on 08-04-2024 Platelet mean volume (Bld) [Entitic vol] 8.7 fL 6.2-12.0 [facility] Partial Thromboplast Timeon 08-04-2024 aPTT Coag (Bld) [Time] 29.9 s Normal 24.1-36.2 [facility] Comment on above: Order Comment: Comme nts: Pre-operative Performed By: #### L 300.4310, L300.3900, L501.9520 ####[facility] [address] [place], [address] Platelet countOrdered By: Elpidio Diaz on 08-04-2024 Platelets (Bld) [#/Vol] 286 10*3/uL 150-450 [facility] Potassium measurement (mass/ volume)Ordered By: Hayden Diaz on 08-04-2024 Potassium (Unsp spec) [Mass/Vol] 3.4 mmol/L 3.3-5.1 [facility] Prothrombin Time w/INRon INR Coag (PPP) [Relative time] 1.1 {INR} Normal [facility] Comment on above: Order Comment: Comme nts: Pre-operative Performed By: #### L 300.4310, L300.3900, L501.9520 ####[facility] [address] [place], [address] PT Coag (PPP) [Time] 14.1 s Normal 11.7-14.9 [facility] Comment on above: Order Comment: Comme nts: Pre-operative Performed By: #### L 300.4310, L300.3900, L501.9520 ####[facility] [address] [place], [address] Prothrombin timeOrdered By: Jw Evans on 08-04-2024 PT Coag (PPP) [Time] 14.1 s 11.7-14.9 [facility] RBC Auto (Bld) [#/Vol]Ordere d By: Hayden Diaz on 08-04-2024 RBC (Bld) [#/Vol] 3.27 10*6/uL Low 4.2-5.4 [facility] Serum creatinine measurement (mass/volume)Ordered By: Hayden Diaz on 08-04-2024 Creatinine [Mass/Vol] 0.74 mg/dL 0.70-1.20 [facility] Serum glucose measurement (m ass/volume)Ordered By: Hayden Diaz on 08-04-2024 Glucose [Mass/Vol] 98 mg/dL 70-99 [facility] Serum or plasma calcium светлана urement (mass/volume)Ordered By: Hayden Diaz on 08-04-2024 Calcium [Mass/Vol] 9.4 mg/dL 7.6-11.0 [facility] Serum or plasma urea nitroge n measurement (mass/volume)Ordered By: Hayden Diaz on 08-04-2024 Urea nitrogen [Mass/Vol] 12 mg/dL 4-19 [facility] Sodium levelOrdered By: Juvenal Diaz on 08-04-2024 Sodium [Moles/Vol] 143 mmol/L 133-145 [facility] TSH DL <= 0.005 mIU/L QnOrde red By: Jw Evans on 08-04-2024 TSH Qn 1.990 uIU/mL 0.300-4.20 0 [facility] Thyroid Stim Hormone (TSH)on 08-04-2024 TSH 1.990 uIU/mL Normal 0.300-4.20 0 [facility] Comment on above: Order Comment: Comme nts: Pre-operative Performed By: #### L 300.4310, L300.3900, L501.9520 ####[facility] [address] [place], [address] White blood cell (WBC) count Ordered By: Hayden Diaz on 08-04-2024 WBC (Bld) [#/Vol] 7.8 10*3/uL 4.4-11.0 [facility] Absolute lymphocyte countOrd ered By: Janine Harrison on 08-03-2024 Lymphocytes Auto (Unsp spec) [#/Vol] 1.69 10*3/uL 0.83-4.51 [facility] Absolute neutrophil countOrd ered By: Janine Harrison on 08-03-2024 Neutrophils (Bld) [#/Vol] 4.9 10*3/uL 2.0-7.7 [facility] Automated lymphocyte count a s percentage of total leukocytesOrdered By: Janine Harrison on 08-03-2024 Lymphocytes/100 WBC Auto (Unsp spec) 23.1 % 19-41 [facility] Basic Metabolic Profile (BMP )on 08-03-2024 BUN/CRE 19.8 RATIO Normal 10-20 [facility] Comment on above: Performed By: #### L 300.3900, L100.0100, L500.2500 #### [facility] [address] [place], [address] Performed By: #### L 300.3900, L100.0100, L500.2500 ####[facility] [address] [place], [address] Calcium [Mass/Vol] 9.5 mg/dL Normal 7.6-11.0 [facility] Comment on above: Performed By: #### L 300.3900, L100.0100, L500.2500 #### [facility] [address] [place], [address] Performed By: #### L 300.3900, L100.0100, L500.2500 ####[facility] [address] [place], [address] Chloride [Moles/Vol] 99 mmol/L Normal 98-108 [facility] Comment on above: Performed By: #### L 300.3900, L100.0100, L500.2500 #### [facility] [address] [place], [address] Performed By: #### L 300.3900, L100.0100, L500.2500 ####[facility] [address] [place], [address] CO2 [Moles/Vol] 31.1 mmol/L Normal 21.0-32.0 [facility] Comment on above: Performed By: #### L 300.3900, L100.0100, L500.2500 #### [facility] [address] [place], [address] Performed By: #### L 300.3900, L100.0100, L500.2500 ####[facility] [address] [place], [address] Creatinine [Mass/Vol] 0.86 mg/dL Normal 0.70-1.20 [facility] Comment on above: Performed By: #### L 300.3900, L100.0100, L500.2500 #### [facility] [address] [place], [address] Performed By: #### L 300.3900, L100.0100, L500.2500 ####[facility] [address] [place], [address] ECRCL 1.09 ml/min Invalid Interpretation Code 50-250 [facility] Comment on above: Performed By: #### L 300.3900, L100.0100, L500.2500 #### [facility] [address] [place], [address] Performed By: #### L 300.3900, L100.0100, L500.2500 ####[facility] [address] [place], [address] GAP 11 Normal 5-15 [facility] Comment on above: Performed By: #### L 300.3900, L100.0100, L500.2500 #### [facility] [address] [place], [address] Performed By: #### L 300.3900, L100.0100, L500.2500 ####[facility] [address] [place], [address] GFR/1.73 sq M.predicted among non-blacks MDRD (S/P/Bld) [Vol rate/Area] 65 mL/min/{1.73_m2} Normal >60 [facility] Comment on above: Result Comment: mL/m in/1.73m2 CKD-EPI Creatinine Equation (2020) Performed By: #### L 300.3900, L100.0100, L500.2500 #### [facility] [address] [place], [address] Result Comment: mL/m in/1.73m2 CKD-EPI Creatinine Equation (2020) Performed By: #### L 300.3900, L100.0100, L500.2500 ####[facility] [address] [place], [address] Glucose [Mass/Vol] 94 mg/dL Normal 70-99 [facility] Comment on above: Performed By: #### L 300.3900, L100.0100, L500.2500 #### [facility] [address] [place], [address] Performed By: #### L 300.3900, L100.0100, L500.2500 ####[facility] [address] [place], [address] Potassium [Moles/Vol] 3.4 mmol/L Normal 3.3-5.1 [facility] Comment on above: Performed By: #### L 300.3900, L100.0100, L500.2500 #### [facility] [address] [place], [address] Performed By: #### L 300.3900, L100.0100, L500.2500 ####[facility] [address] [place], [address] Sodium [Moles/Vol] 140 mmol/L Normal 133-145 [facility] Comment on above: Performed By: #### L 300.3900, L100.0100, L500.2500 #### [facility] [address] [place], [address] Performed By: #### L 300.3900, L100.0100, L500.2500 ####[facility] [address] [place], [address] Urea nitrogen [Mass/Vol] 17 mg/dL Normal 4-19 [facility] Comment on above: Performed By: #### L 300.3900, L100.0100, L500.2500 #### [facility] [address] [place], [address] Performed By: #### L 300.3900, L100.0100, L500.2500 ####[facility] [address] [place], [address] Basophil percentageOrdered B y: Janine Harrison on 08-03-2024 Basophils/100 WBC (Bld) 0.5 % 0-1 [facility] Bedside Glucoseon 08-03-2024 FINGERSTICK GLU 106 mg/dL Normal 74-106 [facility] Comment on above: Result Comment: GIAN GEMENT OF PATIENT CARE PER NURSING PROTOCOL Performed By: #### L 501.080 #### [facility] [address] [place], [address] Result Comment: GIAN GEMENT OF PATIENT CARE PER NURSING PROTOCOL Performed By: #### L 501.080 ####[facility] [address] [place], [address] Brain/Head without Contrasto n 08-03-2024 Brain/Head without Contrast [facility] [address] [place] [address] Brain/Head without Contrast MR#: [id number] Acct: [id number] Name: KATHERINE JUDGE Rep #: [id number] : 1935 F [id number] From: Spencer jaime MD PCP: Dr. Kam Ocampo Sr., Status: ADM IN Study: Brain/Head without Contrast Date of Exam: 07/11 07/03 Exam# [id number] Ordering Dr: Hayden Diaz DO PROCEDURE: BRAIN/HEAD WITHOUT CONTRAST 08/03/2024 REASON FOR EXAM: AMS ON PLAVIX, EVAL FOR BLEED TECHNIQUE: BRAIN/HEAD WITHOUT CONTRAST Coronal and Sagittal reconstruction series were provided. One or more dose reduction techniques were used (e.g., Automated exposure control, adjustment of the mA and/or kV according to patient size, use of iterative reconstruction technique. RADIATION DOSE SUMMARY: CTDlvol: 44.99 mGy DLP: 812.98 mGycm COMPARISON: Prior study dated November 06, 2022. FINDINGS: Brain: Low density in the periventricular white matter suggests mild chronic small vessel ischemic changes. CSF Spaces: Mild generalized cerebral atrophy Sinuses/Mastoids: Clear at visualized levels Bones: Unremarkable CT/Brain/Head without Contrast IMPRESSION: NO ACUTE INTRACRANIAL HEMORRHAGE Chronic changes. Reading Location: [facility] CC: Dr. Hayden Diaz DO; Dr. Kam Ocampo Sr., DO Patient Care Assistant: Signed Normal [facility] Brain/Head without Contrast Normal [facility] CBC W/Diff, Automatedon 07-11 Absolute Lymph 1.69 X10 3/uL Normal 0.83-4.51 [facility] Comment on above: Performed By: #### L 300.3900, L100.0100, L500.2500 #### [facility] [address] [place], [place], [address] Performed By: #### L 300.3900, L100.0100, L500.2500 ####[facility] [address] [place], [address] Absolute Neut 4.9 X10 3/uL Normal 2.0-7.7 [facility] Comment on above: Performed By: #### L 300.3900, L100.0100, L500.2500 #### [facility] [address] [place], [address] Performed By: #### L 300.3900, L100.0100, L500.2500 ####[facility] [address] [place], [address] Basophils/100 WBC (Bld) 0.5 % Normal 0-1 [facility] Comment on above: Performed By: #### L 300.3900, L100.0100, L500.2500 #### [facility] [address] [place], [address] Performed By: #### L 300.3900, L100.0100, L500.2500 ####[facility] [address] [place], [address] Eosinophils/100 WBC (Bld) 1.1 % Normal 0-5 [facility] Comment on above: Performed By: #### L 300.3900, L100.0100, L500.2500 #### [facility] [address] [place], [address] Performed By: #### L 300.3900, L100.0100, L500.2500 ####[facility] [address] [place], [address] Erythrocyte distribution width (RBC) [Ratio] 15.8 % High 11.6-14.6 [facility] Comment on above: Performed By: #### L 300.3900, L100.0100, L500.2500 #### [facility] [address] [place], [address] Performed By: #### L 300.3900, L100.0100, L500.2500 ####[facility] [address] [place], [address] Hematocrit (Bld) [Volume fraction] 27.9 % Low 37-47 [facility] Comment on above: Performed By: #### L 300.3900, L100.0100, L500.2500 #### [facility] [address] [place], [address] Performed By: #### L 300.3900, L100.0100, L500.2500 ####[facility] [address] [place], [address] IG% 0.700 Normal 0.0-0.9 [facility] Comment on above: Result Comment: IG% - Immature Granulocytes (promyelocytes, myelocytes and metamyelocytes) > 1% indicates that a LEFT SHIFT is Present. Performed By: #### L 300.3900, L100.0100, L500.2500 #### [facility] [address] [place], [address] Result Comment: IG% - Immature Granulocytes (promyelocytes, myelocytes andmetamyelocytes) > 1% indicates that a LEFT SHIFT is Present. Performed By: #### L 300.3900, L100.0100, L500.2500 ####[facility] [address] [place], [address] Lymphocytes/100 WBC (Bld) 23.1 % Normal 19-41 [facility] Comment on above: Performed By: #### L 300.3900, L100.0100, L500.2500 #### [facility] [address] [place], [address] Performed By: #### L 300.3900, L100.0100, L500.2500 ####[facility] [address] [place], [address] MCH (RBC) [Entitic mass] 33.0 pg High 27.0-32.0 [facility] Comment on above: Performed By: #### L 300.3900, L100.0100, L500.2500 #### [facility] [address] [place], [address] Performed By: #### L 300.3900, L100.0100, L500.2500 ####[facility] [address] [place], [address] MCHC (RBC) [Mass/Vol] 34.4 g/dL Normal 32-36 [facility] Comment on above: Performed By: #### L 300.3900, L100.0100, L500.2500 #### [facility] [address] [place], [address] Performed By: #### L 300.3900, L100.0100, L500.2500 ####[facility] [address] [place], [address] MCV (RBC) [Entitic vol] 95.9 fL Normal 81-99 [facility] Comment on above: Performed By: #### L 300.3900, L100.0100, L500.2500 #### [facility] [address] [place], [address] Performed By: #### L 300.3900, L100.0100, L500.2500 ####[facility] [address] [place], [address] Monocytes/100 WBC (Bld) 8.1 % Normal 0-10 [facility] Comment on above: Performed By: #### L 300.3900, L100.0100, L500.2500 #### [facility] [address] [place], [address] Performed By: #### L 300.3900, L100.0100, L500.2500 ####[facility] [address] [place], [address] Neutrophils/100 WBC (Bld) 66.5 % Normal 47-70 [facility] Comment on above: Performed By: #### L 300.3900, L100.0100, L500.2500 #### [facility] [address] [place], [address] Performed By: #### L 300.3900, L100.0100, L500.2500 ####[facility] [address] [place], [address] Nucleated RBC (Bld) [#/Vol] 0 10*3/uL Normal 0-5 [facility] Comment on above: Performed By: #### L 300.3900, L100.0100, L500.2500 #### [facility] [address] [place], [address] Performed By: #### L 300.3900, L100.0100, L500.2500 ####[facility] [address] [place], [address] Platelet mean volume (Bld) [Entitic vol] 8.9 fL Normal 6.2-12.0 [facility] Comment on above: Performed By: #### L 300.3900, L100.0100, L500.2500 #### [facility] [address] [place], [address] Performed By: #### L 300.3900, L100.0100, L500.2500 ####[facility] [address] [place], [address] Platelets (Bld) [#/Vol] 239 10*3/uL Normal 150-450 [facility] Comment on above: Performed By: #### L 300.3900, L100.0100, L500.2500 #### [facility] [address] [place], [address] Performed By: #### L 300.3900, L100.0100, L500.2500 ####[facility] [address] [place], [address] RBC (Bld) [#/Vol] 2.91 10*6/uL Low 4.2-5.4 [facility] Comment on above: Performed By: #### L 300.3900, L100.0100, L500.2500 #### [facility] [address] [place], [address] Performed By: #### L 300.3900, L100.0100, L500.2500 ####[facility] [address] [place], [address] RDW SD 48.7 fl High 35.1-43.9 [facility] Comment on above: Performed By: #### L 300.3900, L100.0100, L500.2500 #### [facility] [address] [place], [address] Performed By: #### L 300.3900, L100.0100, L500.2500 ####[facility] [address] [place], [address] WBC (Bld) [#/Vol] 7.3 10*3/uL Normal 4.4-11.0 [facility] Comment on above: Performed By: #### L 300.3900, L100.0100, L500.2500 #### [facility] [address] [place], [address] Performed By: #### L 300.3900, L100.0100, L500.2500 ####[facility] [address] [place], [address] CBC-Complete Blood Cnt No Di ffon 08-03-2024 Erythrocyte distribution width (RBC) [Ratio] 16.4 % High 11.6-14.6 [facility] Comment on above: Performed By: #### L 100.0500 #### [facility] [address] [place], [address] Performed By: #### L 100.0500 ####[facility] [address] [place], [address] Hematocrit (Bld) [Volume fraction] 32.2 % Low 37-47 [facility] Comment on above: Performed By: #### L 100.0500 #### [facility] [address] [place], [address] Performed By: #### L 100.0500 ####[facility] [address] [place], [address] Hemoglobin (Bld) [Mass/Vol] 11.0 g/dL Low 12.0-15.0 [facility] Comment on above: Performed By: #### L 100.0500 #### [facility] [address] [place], [address] Performed By: #### L 100.0500 ####[facility] [address] [place], [address] MCH (RBC) [Entitic mass] 32.9 pg High 27.0-32.0 [facility] Comment on above: Performed By: #### L 100.0500 #### [facility] [address] [place], [address] Performed By: #### L 100.0500 ####[facility] [address] [place], [address] MCHC (RBC) [Mass/Vol] 34.2 g/dL Normal 32-36 [facility] Comment on above: Performed By: #### L 100.0500 #### [facility] [address] [place], [address] Performed By: #### L 100.0500 ####[facility] [address] [place], [address] MCV (RBC) [Entitic vol] 96.4 fL Normal 81-99 [facility] Comment on above: Performed By: #### L 100.0500 #### [facility] [address] [place], [address] Performed By: #### L 100.0500 ####[facility] [address] [place], [address] Platelet mean volume (Bld) [Entitic vol] 9.0 fL Normal 6.2-12.0 [facility] Comment on above: Performed By: #### L 100.0500 #### [facility] [address] [place], [address] Performed By: #### L 100.0500 ####[facility] [address] [place], [address] Platelets (Bld) [#/Vol] 297 10*3/uL Normal 150-450 [facility] Comment on above: Performed By: #### L 100.0500 #### [facility] [place], [address] Performed By: #### L 100.0500 ####[facility] [address] [place], [address] RBC (Bld) [#/Vol] 3.34 10*6/uL Low 4.2-5.4 [facility] Comment on above: Performed By: #### L 100.0500 #### [facility] [address] [place], [address] Performed By: #### L 100.0500 ####[facility] [address] [place], [address] RDW SD 49.8 fl High 35.1-43.9 [facility] Comment on above: Performed By: #### L 100.0500 #### [facility] [address] [place], [address] Performed By: #### L 100.0500 ####[facility] [address] [place], [address] WBC (Bld) [#/Vol] 8.9 10*3/uL Normal 4.4-11.0 [facility] Comment on above: Performed By: #### L 100.0500 #### [facility] [address] [place], [address] Performed By: #### L 100.0500 ####[facility] [address] [place], [address] Eosinophil percentageOrdered By: Janine Harrison on 08-03-2024 Eosinophils/100 WBC (Bld) 1.1 % 0-5 [facility] Gl[facility] at [facility] deOrdered By: Hayden Diaz on 08-03-2024 Glucose [Mass/Vol] 106 mg/dL 74-106 [facility] Comment on above: MANAGEMENT OF PATIEN T CARE PER NURSING PROTOCOL HH, Hemoglobin AND Hematocri ton 08-03-2024 Hematocrit (Bld) [Volume fraction] 28.3 % Low 37-47 [facility] Comment on above: Performed By: #### L 100.0600 #### [facility] [address] [place], [address] Performed By: #### L 100.0600 ####[facility] [address] [place], [address] HCT Normal 37-47 [facility] Comment on above: Result Comment: Canc elled via OM: MD Ordered Performed By: #### L 501.080 #### [facility] [address] [place], [address] Result Comment: Canc elled via OM: MD Ordered Performed By: #### L 100.0600 ####[facility] [address] [place], [address] HGB Normal 12.0-15.0 [facility] Comment on above: Result Comment: Canc elled via OM: MD Ordered Performed By: #### L 501.080 #### [facility] [address] [place], [address] Result Comment: Canc elled via OM: MD Ordered Performed By: #### L 100.0600 ####[facility] [id number] [place], [address] Hemoglobin (Bld) [Mass/Vol] 9.6 g/dL Low 12.0-15.0 [facility] Comment on above: Performed By: #### L 100.0600 #### [facility] [address] [place], [address] Performed By: #### L 300.3900, L100.0100, L500.2500 #### [facility] [address] [place], [address] Performed By: #### L 100.0600 ####[facility] [address] [place], [address] Performed By: #### L 300.3900, L100.0100, L500.2500 ####[facility] [address] [place], [address] Immature granulocytes/100 WB C Auto (Bld)Ordered By: Janine Harrison on 08-03-2024 Immature granulocytes/100 WBC (Bld) 0.700 % 0.0-0.9 [facility] Comment on above: IG% - Immature Granu locytes (promyelocytes, myelocytes and metamyelocytes) > 1% indicates that a LEFT SHIFT is Present. MR/CON.PCM.GIon 08-03-2024 MR/CON.PCM.GI [facility] Medical Records Department [address] [place] [address] Consultation - GI 08/03/24 1537 MR#: [id number] Acct: [id number] Name: KATHERINE JUDGE Rep #: [id number] : 1935 89 From: Nomi Friend PCP: Dr. Kam Ocampo Sr., Status:ADM IN [place] [facility] [place]505-0 HPI Consult Data Date of Consult: 08/03/24 HPI Narrative Reason for Consultation: Anemia HPI Narrative: KATHERINE JUDGE, is a 89 F who mngcuzwr19-nyjr-lvi female with past medical history of TIA/CVA. She was admitted in 2022 for altered mental status. She received tenecteplase. She also has a history, hypertension, hypertension who presented to the emergency department with concern for low hemoglobin. She had a hip replacement done on the right side about a week ago and had been doing well. She has a chronic iron deficiency. Her hemoglobin was 10.2 and deccreased to 6mg/dl. Therefore, I consult as well and had given her iron replacement while in the hospital last time. 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 Distended urinary bladder. Minimal intrahepatic biliary ductal dilatation. [facility] Medical History TIA (transient ischemic attack) Personal history of other diseases of digestive system Noninfective gastroenteritis and colitis, unspecified Essential hypertension Diaphragmatic hernia without obstruction or gangrene Constipation, unspecified Atherosclerotic heart disease of [place] coronary artery without angina pectoris Other specified disorders of white blood cells Other lack of coordination Hyperthyroidism Gout, unspecified Difficulty in walking, not elsewhere classified Depression, unspecified Calculus of gallbladder and bile duct without cholecystitis without obstruction Age-related physical debility Hypertension Home Medications ???Medication ???Instructions ???Recorded ???Last Taken ???Type Lactobacillus-Bifidobacteriu m 30 1 cap PO DAILY 10/30/22 Unknown Hi story billion cell capsule,delayed release (Ultimate Harrison Probiotic) acetaminophen 325 mg capsule 650 mg PO BID pain 10/30/22 Unknow n History (Tylenol) azelastine 137 mcg (0.1 %) nasal 1 spray intranasal BID nasal spray 10/30/22 Unknown History spray Held on 08/02/24. Instructions: Order Completed bupropion HCl 150 mg 24 hr tablet, 150 mg PO DAILY 10/30/22 Unknown History extended release calcium carbonate (Calcium 500) 500 mg PO DAILY 10/30/22 Unknown H istory dicyclomine 10 mg capsule 10 mg PO Q6H digestive issues 10/11 03/03 Unknown History doxazosin 2 mg tablet (Cardura) 2 mg PO DAILY 10/30/22 10/30/22 Hi story fluticasone propionate 50 1 spray intranasal DAILY 10/30/22 Unknown History mcg/actuation nasal spray,suspension (24 Hour Allergy Relief) food supplemt, lactose-reduced 8 ml PO DAILY 10/30/22 Unknown His tory (Ensure oral liquid) gabapentin 600 mg tablet 600 mg PO BID 10/30/22 Unknown His tory inulin 2 gram chewable tablet 5 g PO DAILY 10/30/22 Unknown Hist ory (Fiber Gummies) isosorbide mononitrate 30 mg 30 mg PO DAILY 10/30/22 Unknown Hi story tablet,extended release 24 hr metoprolol tartrate 25 mg tablet 25 mg PO BID 10/30/22 Unknown Hist ory mirtazapine 30 mg tablet 30 mg PO QHS 10/30/22 Unknown Hist ory montelukast 10 mg tablet 10 mg PO QHS 10/30/22 Unknown Hist ory multivitamin (Daily Multi-Vitamin 1 tab PO DAILY 10/30/22 Unknown H istory tablet) pantoprazole 40 mg tablet,delayed 40 mg PO DAILY 10/30/22 Unknown H istory release potassium chloride 20 mEq 20 meq PO DAILY 10/30/22 Unknown H istory tablet,extended release (K-Tab) atorvastatin 40 mg tablet 40 mg PO QHS 20 days #30 tabs 10/11 06/01 Unknown Rx ascorbic acid (vitamin C) 500 mg 500 mg PO BID 08/02/24 Unknown His tory capsule budesonide 0.5 mg/2 mL suspension 0.5 mg inhalation BID 08/02/24 Un known History for nebulization cetirizine 5 mg tablet 5 mg PO DAILY 08/02/24 Unknown His tory cholecalciferol (vitamin D3) 125 125 mcg PO DAILY 08/02/24 Unknown History mcg (5,000 unit) tablet (Vitamin D3) clopidogrel 75 mg tablet 75 mg PO DAILY blood thinner 08/02 Unknown History ferrous sulfate 325 mg (65 mg 325 mg PO DAILY 08/02/24 Unknown H istory iron) tablet furosemide 40 mg tablet 40 mg PO DAILY fluid retention Unknown History inulin-chromium picolinate 2 1 tab PO DAILY 08/02/24 Unknown Hi story gram-100 mcg chewable tablet (Fiber Select Gummies) ipratropium 0.5 mg-albuterol 3 mg 3 ml inhalation BID 08/02/24 Unkn own History (2.5 mg base)/3 mL nebulization soln polyethylene glycol 3350 17 17 g PO B (more content not included)... Normal [facility] MR/CON.PCM.GI Normal [facility] Monocyte percentageOrdered B y: Janine Harrison on 08-03-2024 Monocytes/100 WBC (Bld) 8.1 % 0-10 [facility] Neutrophil percentageOrdered By: Janine Harrison on 08-03-2024 Neutrophils/100 WBC (Bld) 66.5 % 47-70 [facility] Nucleated red blood cell per centageOrdered By: Janine Harrison on 08-03-2024 Nucleated RBC/100 WBC (Bld) [Ratio] 0 % 0-5 [facility] Pelvis without IV Contraston 08-03-2024 [address] without IV Contrast [facility] Imaging Services [address] [place], [place] [address] Pelvis without IV Contrast MR#: [id number] Acct: [id number] Name: KATHERINE JUDGE Wilber Rep #: [id number] : 1935 F 89 From: Spencer jaime MD PCP: Dr. Kam Ocampo Sr., DO Status: ADM IN Study: Pelvis without IV Contrast Date of Exam: 08/03 Exam# [id number] Ordering Dr: Hayden Diaz DO PROCEDURE: PELVIS WITHOUT IV CONTRAST 08/03/2024 REASON FOR EXAM: RECENT R HIP ORIF, EVAL FOR POSTOP HEMATOMA TECHNIQUE: PELVIS WITHOUT IV CONTRAST One or more dose reduction techniques were used (e.g., Automated exposure control, adjustment of the mA and/or kV according to patient size, use of iterative reconstruction technique). RADIATION DOSE SUMMARY: CTDlvol: 12.5 mGy DLP: 477.46 mGycm COMPARISON: None FINDINGS: Bones: The patient is status post intramedullary kaleb fixation and compresses screw fixation of the right intertrochanteric fracture. There is good alignment. Hip Joints: Joint space narrowing. SI Joints: Degenerative changes. Soft Tissues: Postoperative soft tissue changes and edema. No definite localized hematoma is seen. CT/Pelvis without IV Contrast IMPRESSION: Status post right intertrochanteric fracture reduction with compression screw and kaleb fixation device. Postoperative soft tissue changes. No evidence of localized hematoma. Reading Location: [facility] CC: Dr. Hayden Diaz, ; Dr. Kam Ocampo Sr., DO Patient Care Assistant: Signed Normal [facility] Pelvis without IV Contrast Normal [facility] Prothrombin Time w/INRon INR Coag (PPP) [Relative time] 1.1 {INR} Normal [facility] Comment on above: Performed By: #### L 300.3900, L100.0100, L500.2500 #### [facility] [address] [place], [address] Performed By: #### L 300.3900, L100.0100, L500.2500 ####[facility] [address] [place], [address] PT Coag (PPP) [Time] 14.6 s Normal 11.7-14.9 [facility] Comment on above: Performed By: #### L 300.3900, L100.0100, L500.2500 #### [facility] [address] [place], [place], [address] Performed By: #### L 300.3900, L100.0100, L500.2500 ####[facility] [address] [place], [place], [id number] Urine Cultureon 08-03-2024 URC Culture exhibits no growth. Normal [facility] Comment on above: Performed By: #### L 400.0001, M100.2200 ####[facility] [address] [place], [place], [id number] Abdomen/Pelvis W IV Cont ONL Yon 08-02-2024 Abdomen/Pelvis W IV Cont ONLY [facility] Imaging Services [address] [facility] [place], [place] [address] Abdomen/Pelvis W IV Cont ONLY MR#: [id number] Acct: [id number] Name: KATHERINE JUDGE Rep #: [id number] : 1935 F 89 From: Spencer jaime MD PCP: Dr. Kam Ocampo SrLeigh, DO Status: REG ER Study: Abdomen/Pelvis W IV Cont ONLY Date of Exam: Exam# [id number] Ordering Dr: Jamie Beltrán DO PROCEDURE: ABDOMEN/PELVIS W IV CONT ONLY 08/02/2024 REASON FOR EXAM: ABD PAIN, ANEMIA Confusion. TECHNIQUE: ABDOMEN/PELVIS W IV CONT ONLY Coronal and Sagittal reconstruction series were provided. CONTRAST: Isovue-300 VOLUME: 75 mL One or more dose reduction techniques were used (e.g., Automated exposure control, adjustment of the mA and/or kV according to patient size, use of iterative reconstruction technique. RADIATION DOSE SUMMARY: CTDlvol: 13 mGy DLP: 411.45 mGycm COMPARISON: None FINDINGS: Lung bases: Mild linear scarring at the lung bases worse on the right side. Midline sternotomy and coronary bypass surgery. Coronary artery calcification. The patient appears to have undergone a gastric pull-through surgical procedure with the the stomach in the lower right hemithorax. Liver: Diffuse fatty infiltration. Minimally dilated central intrahepatic biliary ducts. Gallbladder: Unremarkable. Spleen: Normal size. Pancreas: Diffuse fatty atrophy. Adrenals: Unremarkable Kidneys: Unremarkable Bladder: Distended urinary bladder. Reproductive Organs: Prior hysterectomy. Adnexal regions are unremarkable. Bowel: Colonic diverticulosis without diverticulitis. Appendix: Status post appendectomy. Lymph nodes: Unremarkable. Vasculature: Mild diffuse atherosclerotic calcifications are noted. Peritoneum / Retroperitoneum: Unremarkable Bones: Excessive lordosis of the lumbar spine. Almost complete collapse of the L1 vertebrae. Multilevel degenerative changes. 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 Distended urinary bladder. Minimal intrahepatic biliary ductal dilatation. Reading Location: [id number] CC: Dr. Kam Ocampo Sr., ; Dr. Jamie Beltrán, DO Patient Care Assistant: Signed Normal [facility] Abdomen/Pelvis W IV Cont ONLY Normal [facility] Absolute lymphocyte countOrd ered By: Jamie Beltrán on 08-02-2024 Lymphocytes Auto (Unsp spec) [#/Vol] 1.51 10*3/uL 0.83-4.51 [facility] Absolute neutrophil countOrd ered By: Jamie Beltrán on 08-02-2024 Neutrophils (Bld) [#/Vol] 5.4 10*3/uL 2.0-7.7 [facility] Ammoniaon 08-02-2024 Ammonia (P) [Moles/Vol] 30.4 umol/L Normal 11- [facility] Comment on above: Performed By: #### L 500.4050, L100.0500 #### [facility] [address] [facility] [place], [place], [id number] Performed By: #### L 503.0106, L506.0200, L503.5510, L100.0600 ####[facility] [address] [facility] [place], [address] Anion gap in Serum or Plasma Ordered By: Jamie Beltrán on 08-02-2024 Anion gap [Moles/Vol] 8 mmol/L 5-15 [facility] Antigen 08-02-2024 ANTIGEN ID Negative Normal [facility] Comment on above: Order Comment: 301.2 Performed By: #### L 500.2500, L100.0500 #### [facility] [address] [place], [address] Order Comment: CMV N EG? NNumber of units to transfuse: 1Reason for Ordering Blood: AcuteAre the blood/blood products to be transfused? YIs the patient having/had surgery? NNWhen ReadyNYA Performed By: #### B [id number], BTS, [facility], J22427-7, BAGM ####[facility] [address] [place], [address] Automated lymphocyte count a s percentage of total leukocytesOrdered By: Jamie Beltrán on 08-02-2024 Lymphocytes/100 WBC Auto (Unsp spec) 19.7 % 19-41 [facility] [id number] 08-02-2024 ANTIBODY ID M Normal [facility] Comment on above: Order Comment: 301.2 Performed By: #### L 500.2500, L100.0500 #### [facility] [address] [place], [address] Order Comment: CMV N EG? NNumber of units to transfuse: 1Reason for Ordering Blood: AcuteAre the blood/blood products to be transfused? YIs the patient having/had surgery? NWhen ReadyNY Performed By: #### B [id number], BT, [facility], Q31356-6, BAGM ####[facility] [address] [place], [address] BRCon 08-02-2024 RC Normal [facility] Comment on above: Result Comment: [id number] OP RC TRANSFUSED 08/02/242022 [id number] OP RC XM COMPATIBLE [id number] OP RC XM COMPATIBLE Performed By: #### L 500.2500, L100.0500 #### [facility] [address] [place], [address] Result Comment: [id number] OP RC TRANSFUSED 08/02/[id number] OP RC NOT [id number] OP RC NOT AVAILABLE Performed By: #### B [id number], BTS, [facility], I98067-5, BAGM ####[facility] [address] [place], [place], [address] BUN/creatinine ratioOrdered By: Jamie Beltrán on 08-02-2024 Urea nitrogen/Creatinine [Mass ratio] 21.5 mg/mg High 10-20 [facility] Basophil percentageOrdered B y: Jamie Beltrán on 08-02-2024 Basophils/100 WBC (Bld) 0.4 % 0-1 [facility] Bilirubin Test strip Ql (U)O rdered By: Jamie Beltrán on 08-02-2024 Bilirubin Ql (U) Negative Negative [facility] Bilirubin, totalOrdered By: Jamie Beltrán on 08-02-2024 Bilirubin [Mass/Vol] 0.80 mg/dL 0.00-1.30 [facility] CBC W/Diff, Automatedon 07-11 Absolute Lymph 1.51 X10 3/uL Normal 0.83-4.51 [facility] Comment on above: Performed By: #### L 500.4050, L100.0500 #### [facility] [address] [place], [address] Performed By: #### L 501.2450, L500.4050, L100.0100 ####[facility] [address] [place], [address] Absolute Neut 5.4 X10 3/uL Normal 2.0-7.7 [facility] Comment on above: Performed By: #### L 500.4050, L100.0500 #### [facility] [address] [place], [address] Performed By: #### L 501.2450, L500.4050, L100.0100 ####[facility] [address] [place], [address] Basophils/100 WBC (Bld) 0.4 % Normal 0-1 [facility] Comment on above: Performed By: #### L 500.4050, L100.0500 #### [facility] [address] [place], [address] Performed By: #### L 501.2450, L500.4050, L100.0100 ####[facility] [address] [place], [address] Eosinophils/100 WBC (Bld) 1.4 % Normal 0-5 [facility] Comment on above: Performed By: #### L 500.4050, L100.0500 #### [facility] [address] [place], [address] Performed By: #### L 501.2450, L500.4050, L100.0100 ####[facility] [address] [place], [address] Erythrocyte distribution width (RBC) [Ratio] 15.9 % High 11.6-14.6 [facility] Comment on above: Performed By: #### L 500.4050, L100.0500 #### [facility] [address] [place], [address] Performed By: #### L 501.2450, L500.4050, L100.0100 ####[facility] [address] [place], [address] Hematocrit (Bld) [Volume fraction] 21.3 % Low 37-47 [facility] Comment on above: Performed By: #### L 500.4050, L100.0500 #### [facility] [address] [place], [address] Performed By: #### L 501.2450, L500.4050, L100.0100 ####[facility] [address] [place], [address] Hemoglobin (Bld) [Mass/Vol] 7.3 g/dL Low 12.0-15.0 [facility] Comment on above: Performed By: #### L 500.4050, L100.0500 #### [facility] [address] [place], [address] Performed By: #### L 501.2450, L500.4050, L100.0100 ####[facility] [address] [place], [address] IG% 0.500 Normal 0.0-0.9 [facility] Comment on above: Result Comment: IG% - Immature Granulocytes (promyelocytes, myelocytes and metamyelocytes) > 1% indicates that a LEFT SHIFT is Present. Performed By: #### L 500.4050, L100.0500 #### [facility] [address] [place], [address] Result Comment: IG% - Immature Granulocytes (promyelocytes, myelocytes andmetamyelocytes) > 1% indicates that a LEFT SHIFT is Present. Performed By: #### L 501.2450, L500.4050, L100.0100 ####[facility] [address] [place], [address] Lymphocytes/100 WBC (Bld) 19.7 % Normal 19-41 [facility] Comment on above: Performed By: #### L 500.4050, L100.0500 #### [facility] [address] [place], [address] Performed By: #### L 501.2450, L500.4050, L100.0100 ####[facility] [address] [place], [address] MCH (RBC) [Entitic mass] 34.6 pg High 27.0-32.0 [facility] Comment on above: Performed By: #### L 500.4050, L100.0500 #### [facility] [address] [place], [address] Performed By: #### L 501.2450, L500.4050, L100.0100 ####[facility] [address] [place], [address] MCHC (RBC) [Mass/Vol] 34.3 g/dL Normal 32-36 [facility] Comment on above: Performed By: #### L 500.4050, L100.0500 #### [facility] [address] [place], [address] Performed By: #### L 501.2450, L500.4050, L100.0100 ####[facility] [address] [place], [address] MCV (RBC) [Entitic vol] 100.9 fL High 81-99 [facility] Comment on above: Performed By: #### L 500.4050, L100.0500 #### [facility] [address] [place], [address] Performed By: #### L 501.2450, L500.4050, L100.0100 ####[facility] [address] [place], [address] Monocytes/100 WBC (Bld) 7.2 % Normal 0-10 [facility] Comment on above: Performed By: #### L 500.4050, L100.0500 #### [facility] [address] [place], [address] Performed By: #### L 501.2450, L500.4050, L100.0100 ####[facility] [address] [place], [address] Neutrophils/100 WBC (Bld) 70.8 % High 47-70 [facility] Comment on above: Performed By: #### L 500.4050, L100.0500 #### [facility] [address] [place], [address] Performed By: #### L 501.2450, L500.4050, L100.0100 ####[facility] [address] [place], [address] Nucleated RBC (Bld) [#/Vol] 0 10*3/uL Normal 0-5 [facility] Comment on above: Performed By: #### L 500.4050, L100.0500 #### [facility] [address] [place], [address] Performed By: #### L 501.2450, L500.4050, L100.0100 ####[facility] [address] [place], [address] Platelet mean volume (Bld) [Entitic vol] 8.9 fL Normal 6.2-12.0 [facility] Comment on above: Performed By: #### L 500.4050, L100.0500 #### [facility] [address] [place], [address] Performed By: #### L 501.2450, L500.4050, L100.0100 ####[facility] [address] [place], [address] Platelets (Bld) [#/Vol] 263 10*3/uL Normal 150-450 [facility] Comment on above: Performed By: #### L 500.4050, L100.0500 #### [facility] [address] [place], [address] Performed By: #### L 501.2450, L500.4050, L100.0100 ####[facility] [address] [place], [address] RBC (Bld) [#/Vol] 2.11 10*6/uL Low 4.2-5.4 [facility] Comment on above: Performed By: #### L 500.4050, L100.0500 #### [facility] [address] [place], [address] Performed By: #### L 501.2450, L500.4050, L100.0100 ####[facility] [address] [place], [address] RDW SD 50.4 fl High 35.1-43.9 [facility] Comment on above: Performed By: #### L 500.4050, L100.0500 #### [facility] [address] [place], [address] Performed By: #### L 501.2450, L500.4050, L100.0100 ####[facility] [address] [place], [address] WBC (Bld) [#/Vol] 7.7 10*3/uL Normal 4.4-11.0 [facility] Comment on above: Performed By: #### L 500.4050, L100.0500 #### [facility] [address] [place], [address] Performed By: #### L 501.2450, L500.4050, L100.0100 ####[facility] [address] [place], [address] Carbon dioxide, total [Moles /volume] in Central venous bloodOrdered By: Jamie Beltrán on 08-02-2024 CO2 [Moles/Vol] 34.9 mmol/L High 21.0-32.0 [facility] Chloride assayOrdered By: Juan Beltrán on 08-02-2024 Chloride [Moles/Vol] 98 mmol/L 98-108 [facility] Comprehensive Metabolic Prof ilon 08-02-2024 Albumin [Mass/Vol] 3.0 g/dL Low 3.4-4.8 [facility] Comment on above: Performed By: #### L 500.4050, L100.0500 #### [facility] [address] [place], [address] Performed By: #### L 501.2450, L500.4050, L100.0100 ####[facility] [address] [place], [address] Albumin/Globulin [Mass ratio] 1.1 {ratio} Normal 0.9-2.4 [facility] Comment on above: Performed By: #### L 500.4050, L100.0500 #### [facility] [address] [place], [address] Performed By: #### L 501.2450, L500.4050, L100.0100 ####[facility] [address] [place], [address] ALK PHOS 75 U/L Normal 35-104 [facility] Comment on above: Performed By: #### L 500.4050, L100.0500 #### [facility] [address] [place], [address] Performed By: #### L 501.2450, L500.4050, L100.0100 ####[facility] [address] [place], [address] ALT [Catalytic activity/Vol] 25 U/L Normal <=34 [facility] Comment on above: Performed By: #### L 500.4050, L100.0500 #### [facility] [address] [place], [address] Performed By: #### L 501.2450, L500.4050, L100.0100 ####[facility] [address] [place], [address] AST [Catalytic activity/Vol] 36 U/L High <=31 [facility] Comment on above: Performed By: #### L 500.4050, L100.0500 #### [facility] [address] [place], [address] Performed By: #### L 501.2450, L500.4050, L100.0100 ####[facility] [address] [place], [address] Bilirubin [Mass/Vol] 0.80 mg/dL Normal 0.00-1.30 [facility] Comment on above: Performed By: #### L 500.4050, L100.0500 #### [facility] [address] [place], [address] Performed By: #### L 501.2450, L500.4050, L100.0100 ####[facility] [address] [place], [address] BUN/CRE 21.5 RATIO High 10-20 [facility] Comment on above: Performed By: #### L 500.4050, L100.0500 #### [facility] [address] [place], [address] Performed By: #### L 501.2450, L500.4050, L100.0100 ####[facility] [address] [place], [address] Calcium [Mass/Vol] 9.7 mg/dL Normal 7.6-11.0 [facility] Comment on above: Performed By: #### L 500.4050, L100.0500 #### [facility] [address] [place], [address] Performed By: #### L 501.2450, L500.4050, L100.0100 ####[facility] [address] [place], [address] Chloride [Moles/Vol] 98 mmol/L Normal 98-108 [facility] Comment on above: Performed By: #### L 500.4050, L100.0500 #### [facility] [address] [place], [address] Performed By: #### L 501.2450, L500.4050, L100.0100 ####[facility] [address] [place], [address] CO2 [Moles/Vol] 34.9 mmol/L High 21.0-32.0 [facility] Comment on above: Performed By: #### L 500.4050, L100.0500 #### [facility] [address] [place], [address] Performed By: #### L 501.2450, L500.4050, L100.0100 ####[facility] [address] [place], [address] Creatinine [Mass/Vol] 0.83 mg/dL Normal 0.70-1.20 [facility] Comment on above: Performed By: #### L 500.4050, L100.0500 #### [facility] [address] [place], [address] Performed By: #### L 501.2450, L500.4050, L100.0100 ####[facility] [address] [place], [address] ECRCL 33.65 ml/min Low 50-250 [facility] Comment on above: Performed By: #### L 500.4050, L100.0500 #### [facility] [address] [place], [address] Performed By: #### L 501.2450, L500.4050, L100.0100 ####[facility] [address] [place], [address] GAP 8 Normal 5-15 [facility] Comment on above: Performed By: #### L 500.4050, L100.0500 #### [facility] [address] [place], [address] Performed By: #### L 501.2450, L500.4050, L100.0100 ####[facility] [address] [place], [address] GFR/1.73 sq M.predicted among non-blacks MDRD (S/P/Bld) [Vol rate/Area] 68 mL/min/{1.73_m2} Normal >60 [facility] Comment on above: Result Comment: mL/m in/1.73m2 CKD-EPI Creatinine Equation (2020) Performed By: #### L 500.4050, L100.0500 #### [facility] [address] [place], [address] Result Comment: mL/m in/1.73m2 CKD-EPI Creatinine Equation (2020) Performed By: #### L 501.2450, L500.4050, L100.0100 ####[facility] [address] [place], [address] Globulin (S) [Mass/Vol] 2.8 g/dL Normal 2.2-4.2 [facility] Comment on above: Performed By: #### L 500.4050, L100.0500 #### [facility] [address] [place], [address] Performed By: #### L 501.2450, L500.4050, L100.0100 ####[facility] [address] [place], [address] Glucose [Mass/Vol] 114 mg/dL High 70-99 [facility] Comment on above: Performed By: #### L 500.4050, L100.0500 #### [facility] [address] [place], [address] Performed By: #### L 501.2450, L500.4050, L100.0100 ####[facility] [address] [place], [address] Potassium [Moles/Vol] 3.6 mmol/L Normal 3.3-5.1 [facility] Comment on above: Performed By: #### L 500.4050, L100.0500 #### [facility] [address] [place], [address] Performed By: #### L 501.2450, L500.4050, L100.0100 ####[facility] [address] [place], [address] Sodium [Moles/Vol] 141 mmol/L Normal 133-145 [facility] Comment on above: Performed By: #### L 500.4050, L100.0500 #### [facility] [address] [place], [address] Performed By: #### L 501.2450, L500.4050, L100.0100 ####[facility] [address] [place], [address] T PROT 5.8 g/dL Low 5.9-8.4 [facility] Comment on above: Performed By: #### L 500.4050, L100.0500 #### [facility] [address] [place], [address] Performed By: #### L 501.2450, L500.4050, L100.0100 ####[facility] [address] [place], [address] Urea nitrogen [Mass/Vol] 18 mg/dL Normal 4-19 [facility] Comment on above: Performed By: #### L 500.4050, L100.0500 #### [facility] [address] [place], [address] Performed By: #### L 501.2450, L500.4050, L100.0100 ####[facility] [address] [place], [address] Emergency Department Summary on 08-02-2024 Emergency Department Summary [facility] Medical Records Department [address] [facility] [place] [address] Emergency Department Summary 08/02/24 MR#: [id number] Acct: [id number] Name: KATHERINE JUDGE Rep #: [id number] : 1935 89 From: Jamie Beltrán DO PCP: Dr. Kam Ocampo Sr., DO Status:REG ER Location: ED HPI History of Present Illness Chief Complaint: Abn Labs Narrative Narrative: Patient is a 81-year-old female with past medical history of TIA, hypertension, hypertension who presented to the emergency department with concern for low hemoglobin. According to the son at bedside she has also been more confused lately. She had a hip replacement done on the right side about a week ago and had been doing well. They state that she has a chronic iron deficiency as well and had given her iron replacement while in the hospital last time. [facility] Medical History TIA (transient ischemic attack) Personal history of other diseases of digestive system Noninfective gastroenteritis and colitis, unspecified Essential hypertension Diaphragmatic hernia without obstruction or gangrene Constipation, unspecified Atherosclerotic heart disease of [place] coronary artery without angina pectoris Other specified disorders of white blood cells Other lack of coordination Hyperthyroidism Gout, unspecified Difficulty in walking, not elsewhere classified Depression, unspecified Calculus of gallbladder and bile duct without cholecystitis without obstruction Age-related physical debility Hypertension Home Medications ???Medication ???Instructions ???Recorded ???Last Taken ???Type Lactobacillus-Bifidobacteriu m 30 1 cap PO DAILY 10/30/22 Unknown Hi story billion cell capsule,delayed release (Ultimate Harrison Probiotic) acetaminophen 325 mg capsule 500 mg PO BID 10/30/22 Unknown His tory (Tylenol) azelastine 137 mcg (0.1 %) nasal 1 spray intranasal BID 10/30/22 Un known History spray bupropion HCl 150 mg 24 hr tablet, 150 mg PO DAILY 10/30/22 Unknown History extended release calcium carbonate (Calcium 500) 500 mg PO DAILY 10/30/22 Unknown H istory dicyclomine 10 mg capsule 10 mg PO Q6H 10/30/22 Unknown Hist ory doxazosin 2 mg tablet (Cardura) 2 mg PO DAILY 10/30/22 10/30/22 Hi story fluticasone propionate 50 1 spray intranasal DAILY 10/30/22 Unknown History mcg/actuation nasal spray,suspension (24 Hour Allergy Relief) food supplemt, lactose-reduced 8 ml PO DAILY 10/30/22 Unknown His tory (Ensure oral liquid) gabapentin 600 mg tablet 600 mg PO BID 10/30/22 Unknown His tory guaifenesin 100 mg/5 mL oral 200 mg PO Q8 10/30/22 Unknown Hist ory liquid (Chest Congestion Relief) inulin 2 gram chewable tablet 5 g PO DAILY 10/30/22 Unknown Hist ory (Fiber Gummies) isosorbide mononitrate 30 mg 30 mg PO DAILY 10/30/22 Unknown Hi story tablet,extended release 24 hr metoprolol tartrate 25 mg tablet 25 mg PO BID 10/30/22 Unknown Hist ory mirtazapine 30 mg tablet 30 mg PO QHS 10/30/22 Unknown Hist ory montelukast 10 mg tablet 10 mg PO QHS 10/30/22 Unknown Hist ory multivitamin (Daily Multi-Vitamin 1 tab PO DAILY 10/30/22 Unknown H istory tablet) pantoprazole 40 mg tablet,delayed 40 mg PO DAILY 10/30/22 Unknown H istory release potassium chloride 20 mEq 20 meq PO DAILY 10/30/22 Unknown H istory tablet,extended release (K-Tab) atorvastatin 40 mg tablet 40 mg PO QHS 20 days #30 tabs 10/11 06/01 Unknown Rx cetirizine 5 mg tablet 5 mg PO DAILY 08/02/24 Unknown His tory ferrous sulfate 325 mg (65 mg 325 mg PO DAILY 08/02/24 Unknown H istory iron) tablet inulin-chromium picolinate 2 tab PO 08/02/24 Unknown History gram-100 mcg chewable tablet (Fiber Select Gummies) Allergy/AdvReac Type Severity Reaction Status Date / Time cephalexin Allergy NEEDS Verified 08/02/24 16:18 FOLLOW-UP clarithromycin Allergy NEEDS Verified 08/02/24 16:18 FOLLOW-UP clindamycin Allergy NEEDS Verified 08/02/24 16:18 FOLLOW-UP doxazosin Allergy NEEDS Verified 11/06/22 16:25 FOLLOW-UP erythromycin base Allergy NEEDS Verified 08/02/24 16:18 FOLLOW-UP eszopiclone Allergy NEEDS Verified 08/02/24 16:18 FOLLOW-UP Fish Containing Products Allergy NEEDS Verified 08/02/24 16:18 FOLLOW-UP fish derived Allergy NEEDS Verified 08/02/24 16:18 FOLLOW-UP lincomycin Allergy NEEDS Verified 08/02/24 16:18 FOLLOW-UP lorazepam Allergy NEEDS Verified 08/02/24 16:18 FOLLOW-UP NSAIDS (Non-Steroidal Allergy NEEDS Verified 08/02/24 16:18 Anti-Inflamma FOLLOW-UP Penicillins Allergy NEEDS Verified 08/02/24 16:18 FOLLOW-UP rofecoxib Allergy NEEDS Verified 08/02/24 16:18 FOLLOW-UP salicylates Allergy NEEDS Verified 08/02/24 16:18 FO (more content not included)... Normal [facility] Emergency Department Summary Normal [facility] Eosinophil percentageOrdered By: Jamie Beltrán on 08-02-2024 Eosinophils/100 WBC (Bld) 1.4 % 0-5 [facility] Erythrocyte distribution wid th ratioOrdered By: Jamie Beltrán on 08-02-2024 Erythrocyte distribution width (RBC) [Ratio] 15.9 % High 11.6-14.6 [facility] Erythrocyte distribution wid th standard deviationOrdered By: Jamie Beltrán on 08-02-2024 Erythrocyte distribution width (RBC) [Ratio] 50.4 fl High 35.1-43.9 [facility] Ferritinon 08-02-2024 Ferritin [Mass/Vol] 524 ng/mL High 22-378 [facility] Comment on above: Order Comment: 301.2 Performed By: #### L 501.080 #### [facility] [address] [place], [address] Order Comment: 301.2 Performed By: #### L 503.6030, L503.6550, L503.0106, L100.0600, L506.0200 ####[facility] [address] [place], [address] Folate [Mass/volume] in Seru m or PlasmaOrdered By: Janine Harrison on 08-02-2024 Folate [Mass/Vol] 35.60 ng/mL High 4.60-34.80 [facility] Comment on above: Hemolysis, Results w ill be affected, Requires Recollection. Folate [Mass/volume] in Seru m or PlasmaOrdered By: Kam Ocampo on 08-02-2024 Folate [Mass/Vol] 34.50 ng/mL 4.60-34.80 [facility] Folates,Serum (Folic Acid)on 08-02-2024 FOLATES,SERUM 35.60 ng/mL High 4.60-34.80 [facility] Comment on above: Result Comment: Hemo lysis, Results will be affected, Requires Recollection. Performed By: #### L 500.4050, L100.0500 #### [facility] [address] [place], [address] Result Comment: Hemo lysis, Results will be affected, Requires Recollection. Performed By: #### L 503.0106, L506.0200, L503.5510, L100.0600 ####[facility] [address] [place], [address] FOLATES,SERUM 34.50 ng/mL Normal 4.60-34.80 [facility] Comment on above: Order Comment: 301.2 Y Performed By: #### L 501.080 #### [facility] [address] [place], [place], [address] Order Comment: 301.2 Y Performed By: #### L 503.6030, L503.6550, L503.0106, L100.0600, L506.0200 ####[facility] [address] [place], [address] Glomerular filtration rate ( GFR) estimation/1.73 sq m using serum, plasma, or whole bOrdered By: Jamie Beltrán on 08-02-2024 GFR/1.73 sq M.predicted among non-blacks MDRD (S/P/Bld) [Vol rate/Area] 68 mL/min/{1.73_m2} >60 [facility] Comment on above: mL/min/1.73m2 CKD-EP I Creatinine Equation (2020) H AND P Exam - [facility] 08-02-2024 H&P Exam - Hospitalist [facility] Medical Records Department [address] [facility] [place] [address] H P Exam - Hospitalist 08/02/24 1720 MR#: [id number] Acct: [id number] Name: KATHERINE JUDGE Rep #: [id number] : 1935 89 From: Janine Harrison MD PCP: Dr. Kam Ocampo Sr., DO Status:ADM IN Location: [facility] [place] PT[facility]15-[place] HPI - General General Date of Admission: 08/02/24 Date of Service: 08/02/24 Chief Complaint: Low hgb HPI Narrative KATHERINE JUDGE, is a 89-year-old female with a history of TIA, hypertension, iron deficiency anemia, hip fracture repair last week, depression, GERD who presented to [facility] ED 08/02/2024 with concerns for low hemoglobin. Son at bedside also reported she had been more confused recently though had been doing well after she had her right hip replacement about a week ago. In the ED patient afebrile, heart rate 85 with a blood pressure 115/53, respiratory rate 16 and pulse ox 97% on room air. Hemoglobin 7.3 with a baseline around 10 and CMP without evidence of endorgan damage, UA does not appear infectious. CT abdomen obtained which showed findings suggestive of gastric pull-through with stomach and right hemithorax and distended urinary bladder. Rectal exam in the ED appeared black and Hemoccult was positive. Patient typed and crossed and started on PPI and hospitalist contacted admission. Patient evaluated at bedside with son present. Patient seemed to be confused and was an unreliable historian so history obtained primarily from the son, he reports overall she had been fairly normal mental status on Thursday, he did not see her yesterday, but today she is very far from baseline and notes she usually gets like this when she has urinary tract infections. She did have right hip surgery recently and reports some right hip pain, unable to get any other specific ROS. Son does note that she has a history of abdominal surgeries and hiatal hernia but it has been at least since 2018 since she has had any surgeries or interventions. [facility] Medical History TIA (transient ischemic attack) Personal history of other diseases of digestive system Noninfective gastroenteritis and colitis, unspecified Essential hypertension Diaphragmatic hernia without obstruction or gangrene Constipation, unspecified Atherosclerotic heart disease of [place] coronary artery without angina pectoris Other specified disorders of white blood cells Other lack of coordination Hyperthyroidism Gout, unspecified Difficulty in walking, not elsewhere classified Depression, unspecified Calculus of gallbladder and bile duct without cholecystitis without obstruction Age-related physical debility Hypertension Home Medications ???Medication ???Instructions ???Recorded ???Last Taken ???Type Lactobacillus-Bifidobacteriu m 30 1 cap PO DAILY 10/30/22 Unknown Hi story billion cell capsule,delayed release (Ultimate Harrison Probiotic) acetaminophen 325 mg capsule 650 mg PO BID pain 10/30/22 Unknow n History (Tylenol) azelastine 137 mcg (0.1 %) nasal 1 spray intranasal BID 10/30/22 Un known History spray bupropion HCl 150 mg 24 hr tablet, 150 mg PO DAILY 10/30/22 Unknown History extended release calcium carbonate (Calcium 500) 500 mg PO DAILY 10/30/22 Unknown H istory dicyclomine 10 mg capsule 10 mg PO Q6H 10/30/22 Unknown Hist ory doxazosin 2 mg tablet (Cardura) 2 mg PO DAILY 10/30/22 10/30/22 Hi story fluticasone propionate 50 1 spray intranasal DAILY 10/30/22 Unknown History mcg/actuation nasal spray,suspension (24 Hour Allergy Relief) food supplemt, lactose-reduced 8 ml PO DAILY 10/30/22 Unknown His tory (Ensure oral liquid) gabapentin 600 mg tablet 600 mg PO BID 10/30/22 Unknown His tory inulin 2 gram chewable tablet 5 g PO DAILY 10/30/22 Unknown Hist ory (Fiber Gummies) isosorbide mononitrate 30 mg 30 mg PO DAILY 10/30/22 Unknown Hi story tablet,extended release 24 hr metoprolol tartrate 25 mg tablet 25 mg PO BID 10/30/22 Unknown Hist ory mirtazapine 30 mg tablet 30 mg PO QHS 10/30/22 Unknown Hist ory montelukast 10 mg tablet 10 mg PO QHS 10/30/22 Unknown Hist ory multivitamin (Daily Multi-Vitamin 1 tab PO DAILY 10/30/22 Unknown H istory tablet) pantoprazole 40 mg tablet,delayed 40 mg PO DAILY 10/30/22 Unknown H istory release potassium chloride 20 mEq 20 meq PO DAILY 10/30/22 Unknown H istory tablet,extended release (K-Tab) atorvastatin 40 mg tablet 40 mg PO QHS 20 days #30 tabs 10/11 06/01 Unknown Rx ascorbic acid (vitamin C) 500 mg 500 mg PO BID 08/02/24 Unknown His tory capsule budesonide 0.5 mg/2 mL suspension 0.5 mg inhalation BID 08/02/24 Un known History for nebulization cetirizine 5 mg tablet 5 mg PO DAILY 08/02/24 Unknown His tory cholecalci (more content not included)... Normal [facility] H&P Exam - Hospitalist Normal [facility] HH, Hemoglobin AND Hematocri ton 08-02-2024 Hematocrit (Bld) [Volume fraction] 24.2 % Low 37-47 [facility] Comment on above: Performed By: #### L 500.4050, L100.0500 #### [facility] [address] [place], [place], [address] Performed By: #### L 503.0106, L506.0200, L503.5510, L100.0600 ####[facility] [address] [place], [address] Hemoglobin (Bld) [Mass/Vol] 8.1 g/dL Low 12.0-15.0 [facility] Comment on above: Performed By: #### L 500.4050, L100.0500 #### [facility] [address] [place], [address] Performed By: #### L 503.0106, L506.0200, L503.5510, L100.0600 ####[facility] [address] [place], [address] Hematocrit (Bld) [Volume fraction] 19.0 % Low 37-47 [facility] Comment on above: Order Comment: 301.2 Performed By: #### L 501.080 #### [facility] [address] [place], [address] Order Comment: 301.2 Performed By: #### L 503.6030, L503.6550, L503.0106, L100.0600, L506.0200 ####[facility] [address] [place], [address] Hemoglobin (Bld) [Mass/Vol] 6.2 g/dL Low 12.0-15.0 [facility] Comment on above: Order Comment: 301.2 Performed By: #### L 501.080 #### [facility] [address] [place], [address] Order Comment: 301.2 Performed By: #### L 503.6030, L503.6550, L503.0106, L100.0600, L506.0200 ####[facility] [address] [place], [address] Hematocrit Auto (Bld) [Volum e fraction]Ordered By: Jamie Beltrán on 08-02-2024 Hematocrit (Bld) [Volume fraction] 21.3 % Low 37-47 [facility] Hematocrit Auto (Bld) [Volum e fraction]Ordered By: Kam Ocampo on 08-02-2024 Hematocrit (Bld) [Volume fraction] 19.0 % Low 37-47 [facility] Hemoglobin measurementOrdere d By: Jamie Beltrán on 08-02-2024 Hemoglobin (Bld) [Mass/Vol] 7.3 g/dL Low 12.0-15.0 [facility] Hemoglobin measurementOrdere d By: Kam Ocampo on 08-02-2024 Hemoglobin (Bld) [Mass/Vol] 6.2 g/dL Low 12.0-15.0 [facility] Immature granulocytes/100 WB C Auto (Bld)Ordered By: Jamie Beltrán on 08-02-2024 Immature granulocytes/100 WBC (Bld) 0.500 % 0.0-0.9 [facility] Comment on above: IG% - Immature Granu locytes (promyelocytes, myelocytes and metamyelocytes) > 1% indicates that a LEFT SHIFT is Present. Iron measurement (mass/mass) Ordered By: Kam Ocampo on 08-02-2024 Iron (Unsp spec) [Mass/Mass] 46 ug/dL Low 50-170 [facility] Iron+Iron Binding Capacityon 08-02-2024 TIBC 174 ug/dL Low 250-450 [facility] Comment on above: Order Comment: 301.2 Performed By: #### L 501.080 #### [facility] [address] [place], [place], [address] Order Comment: 301.2 Performed By: #### L 503.6030, L503.6550, L503.0106, L100.0600, L506.0200 ####[facility] [address] [place], [place], [id number] Ketones Test strip Ql (U)Ord ered By: Jamie Beltrán on 08-02-2024 Ketones Ql (U) Negative Negative [facility] - Chemistry and C hemistry - challengeOrdered By: Jamie Beltrán on 08-02-2024 AST [Catalytic activity/Vol] 36 U/L High <32 [facility] Lipaseon 08-02-2024 Lipase [Catalytic activity/Vol] 21 U/L Normal 13-75 [facility] Comment on above: Result Comment: Plea se note: LIPASE revised reference range effective 22. New Lipase methodology. Expected to produce lower values than the previous assay method. NEW Reference Range: 13 - 75 U/L Performed By: #### L 500.4050, L100.0500 #### [facility] [address] [place], [place], [address] Result Comment: Plea se note:LIPASE revised reference range effective 22.New Lipase methodology. Expected to produce lower valuesthan the previous assay method.NEW Reference Range: 13 - 75 U/L Performed By: #### L 501.2450, L500.4050, L100.0100 ####[facility] [address] [place], [place], [address] Lipase measurementOrdered By : Jamie Beltrán on 08-02-2024 Lipase [Catalytic activity/Vol] 21 U/L 13-75 [facility] Comment on above: Please note:LIPASE r evised reference range effective 22. New Lipase methodology. Expected to produce lower values than the previous assay method. NEW Reference Range: 13 - 75 U/L MCV (mean corpuscular volume ) determinationOrdered By: Jamie Beltrán on 08-02-2024 MCV (RBC) [Entitic vol] 100.9 fL High 81-99 [facility] Mean corpuscular hemoglobin (MCH) determinationOrdered By: Jamie Beltrán on 08-02-2024 MCH (RBC) [Entitic mass] 34.6 pg High 27.0-32.0 [facility] Mean corpuscular hemoglobin concentration (MCHC) determinationOrdered By: Jamie Beltrán on 08-02-2024 MCHC (RBC) [Mass/Vol] 34.3 g/dL 32-36 [facility] Mean platelet volume determi nationOrdered By: Jamie Beltrán on 08-02-2024 Platelet mean volume (Bld) [Entitic vol] 8.9 fL 6.2-12.0 [facility] Microscopic analysis of urin e for red blood cells (RBC)Ordered By: Jamie Beltrán on 08-02-2024 Microscopic analysis of urine for red blood cells (RBC) 0-5 SEEN /hpf 0-5 [facility] Monocyte percentageOrdered B y: Jamie Beltrán on 08-02-2024 Monocytes/100 WBC (Bld) 7.2 % 0-10 [facility] Mucus LM Ql (Urine sed)Order ed By: Jamie Beltrán on 08-02-2024 Mucus Ql (Urine sed) 0 SEEN /hpf [facility] Neutrophil percentageOrdered By: Jamie Beltrán on 08-02-2024 Neutrophils/100 WBC (Bld) 70.8 % High 47-70 [facility] Nitrite Test strip Ql (U)Ord ered By: Jamie Beltrán on 08-02-2024 Nitrite Ql (U) Negative Negative [facility] No Panel InformationOrdered By: Kam Ocampo on 08-02-2024 Unsaturated Iron Binding Capacity 128 ug/dL Low 228-428 [facility] Nucleated red blood cell per centageOrdered By: Jamie Beltrán on 08-02-2024 Nucleated RBC/100 WBC (Bld) [Ratio] 0 % 0-5 [facility] Platelet countOrdered By: Juan Beltrán on 08-02-2024 Platelets (Bld) [#/Vol] 263 10*3/uL 150-450 [facility] Potassium measurement (mass/ volume)Ordered By: Jamie Beltrán on 08-02-2024 Potassium (Unsp spec) [Mass/Vol] 3.6 mmol/L 3.3-5.1 [facility] Protein Test strip Ql (U)Ord ered By: Jamie Beltrán on 08-02-2024 Protein Ql (U) Negative Negative [facility] RBC Auto (Bld) [#/Vol]Ordere d By: Jamie Beltrán on 08-02-2024 RBC (Bld) [#/Vol] 2.11 10*6/uL Low 4.2-5.4 [facility] Serum creatinine measurement (mass/volume)Ordered By: Jamie Beltrán on 08-02-2024 Creatinine [Mass/Vol] 0.83 mg/dL 0.70-1.20 [facility] Serum globulin measurementOr dered By: Jamie Beltrán on 08-02-2024 Globulin (S) [Mass/Vol] 2.8 g/dL 2.2-4.2 [facility] Serum glucose measurement (m ass/volume)Ordered By: Jamie Beltrán on 08-02-2024 Glucose [Mass/Vol] 114 mg/dL High 70-99 [facility] Serum or plasma alanine browne otransferase (ALT) measurementOrdered By: Jamie Beltrán on 08-02-2024 ALT [Catalytic activity/Vol] 25 U/L <35 [facility] Serum or plasma albumin светлана urement (mass/volume)Ordered By: Jamie Beltrán on 08-02-2024 Albumin [Mass/Vol] 3.0 g/dL Low 3.4-4.8 [facility] Serum or plasma albumin/glob ulin mass ratioOrdered By: Jamie Beltrán on 08-02-2024 Albumin/Globulin [Mass ratio] 1.1 {ratio} 0.9-2.4 [facility] Serum or plasma alkaline noy sphatase measurementOrdered By: Jamie Beltrán on 08-02-2024 ALP [Catalytic activity/Vol] 75 U/L 35-104 [facility] Serum or plasma calcium светлана urement (mass/volume)Ordered By: Jamie Beltrán on 08-02-2024 Calcium [Mass/Vol] 9.7 mg/dL 7.6-11.0 [facility] Serum or plasma ferritin maria d surement (mass/volume)Ordered By: Kam Ocampo on 08-02-2024 Ferritin [Mass/Vol] 524 ng/mL High 22-378 [facility] Serum or plasma iron saturat ion measurement (mass fraction)Ordered By: Kam Ocampo on 08-02-2024 Iron saturation [Mass fraction] 26.4 % 13-59 [facility] Comment on above: Previous reported re sult: 26.0 %Edited by: SHLOMO on 08/02/24:5234 AMENDED REPORT 08/02/24 0198 IRON SATURATION previously reported as: 26.0 % Serum or plasma urea nitroge n measurement (mass/volume)Ordered By: Jamie Beltrán on 08-02-2024 Urea nitrogen [Mass/Vol] 18 mg/dL 4-19 [facility] Sodium levelOrdered By: Howard Beltrán on 08-02-2024 Sodium [Moles/Vol] 141 mmol/L 133-145 [facility] Squamous epithelial cells de tection in urine sediment by light microscopyOrdered By: Jamie Beltrán on 08-02-2024 Epithelial cells.squamous LM Ql (Urine sed) 0-5 SEEN /hpf 5-10 [facility] Stool Occult Blood iFOBon STOB Positive Normal [facility] Comment on above: Performed By: #### L 500.2500, L100.0500 #### [facility] [address] [place], [place], [phone] Performed By: #### M 100.7900 ####[facility] [address] [place], [place], [id number] Stool gastrointestinal hemog lobin detection by immunologic methodOrdered By: Jamie Beltrán on 08-02-2024 Lower GI hemoglobin IA Ql (Stl) Positive Abnormal [facility] Total proteinOrdered By: Mary Jane Beltrán on 08-02-2024 Protein [Mass/Vol] 5.8 g/dL Low 5.9-8.4 [facility] Type AND Screenon 08-02-2024 Ab SCREEN GEL Positive Abnormal [facility] Comment on above: Order Comment: 301.2 Result Comment: AMENDED REPORT 08/02/241813: Antibody Screen previously reported as: Test not performed AMENDED REPORT 08/02/241814: Antibody Screen previously reported as: Test not performed Performed By: #### L 500.2500, L100.0500 #### [facility] [address] [place], [place], [id number] Order Comment: CMV N EG? NNumber of units to transfuse: 1Reason for Ordering Blood: AcuteAre the blood/blood products to be transfused? YIs the patient having/had surgery? NNWhen ReadyNYA Result Comment: AMENDED REPORT 08/02/241813: Antibody Screen previously reported as:Test not performed AMENDED REPORT 08/02/241814: Antibody Screen previously reported as:Test not performed Performed By: #### B SHH0019, BTS, BRC, [id number], BAGM ####[facility] [address] [place], [address] Urinalysis, Completeon 08-02 EPI,SQUAMOUS 0-5 SEEN Normal 5-10 [facility] Comment on above: Order Comment: ADWOA CTOR TO SPECIFY Performed By: #### L 501.080 #### [facility] [address] [place], [address] Order Comment: ADWOA CTOR TO SPECIFY Performed By: #### L 400.0001, M100.2200 ####[facility] [address] [place], [address] RBC 0-5 SEEN Normal 0-5 [facility] Comment on above: Order Comment: ADWOA CTOR TO SPECIFY Performed By: #### L 501.080 #### [facility] [address] [place], [address] Order Comment: ADWOA CTOR TO SPECIFY Performed By: #### L 400.0001, M100.2200 ####[facility] [address] [place], [address] WBC 0-5 SEEN Normal 0-5 [facility] Comment on above: Order Comment: ADWOA CTOR TO SPECIFY Performed By: #### L 501.080 #### [facility] [address] [place], [address] Order Comment: ADWOA CTOR TO SPECIFY Performed By: #### L 400.0001, M100.2200 ####[facility] [address] [place], [address] BACTERIA 0 SEEN Normal None Seen [facility] Comment on above: Order Comment: ADWOA CTOR TO SPECIFY Performed By: #### L 501.080 #### [facility] [address] [place], [place], [address] Order Comment: ADWOA CTOR TO SPECIFY Performed By: #### L 400.0001, M100.2200 ####[facility] [address] [place], [address] Mucus Ql (Urine sed) 0 SEEN Normal [facility] Comment on above: Order Comment: ADWOA CTOR TO SPECIFY Performed By: #### L 501.080 #### [facility] [address] [place], [place], [address] Order Comment: ADWOA CTOR TO SPECIFY Performed By: #### L 400.0001, M100.2200 ####[facility] [address] [place], [place], [id number] Urine clarityOrdered By: Mary Jane Beltrán on 08-02-2024 Clarity (U) Clear Clear [facility] Urine color determinationOrd ered By: Jamie Beltrán on 08-02-2024 Color (U) Straw Yellow [facility] Urine cultureOrdered By: Mary Jane Beltrán on 08-02-2024 Bacteria identified Cx Nom (U) Culture exhibits no growth. [facility] Urine glucose detectionOrder ed By: Jamie Beltrán on 08-02-2024 Glucose Ql (U) Normal mg/dl Normal [facility] Urine leukocyte esterase det ection by dipstickOrdered By: Jamie Beltrán on 08-02-2024 Leukocyte esterase Test strip Ql (U) Negative Negative [facility] Urine pHOrdered By: Jamie akhtar on 08-02-2024 pH (U) 7.0 [pH] 5.0 - 8.0 [facility] Urine sediment bacteria coun t by microscopy (number/high power field)Ordered By: Jamie Beltrán on 08-02-2024 Bacteria LM.HPF (Urine sed) [#/Area] 0 /[HPF] None Seen [facility] Urine specific gravity measu rementOrdered By: Jamie Beltrán on 08-02-2024 Specific gravity (U) [Rel density] 1.010 1.002-1.03 0 [facility] Urine urobilinogen measureme ntOrdered By: Jamie Beltrán on 08-02-2024 Urobilinogen Ql (U) Normal mg/dl Normal [facility] Venous blood ammonia measure mentOrdered By: Janine Harrison on 08-02-2024 Ammonia (P) [Moles/Vol] 30.4 umol/L 11-51 [facility] Vitamin B12on 08-02-2024 Cobalamin (Vitamin B12) [Mass/Vol] 1365 pg/mL High 180-914 [facility] Comment on above: Performed By: #### L 500.4050, L100.0500 #### [facility] [address] [place], [address] Performed By: #### L 503.0106, L506.0200, L503.5510, L100.0600 ####[facility] [address] [place], [address] Cobalamin (Vitamin B12) [Mass/Vol] 1056 pg/mL High 180-914 [facility] Comment on above: Order Comment: 301.2 Performed By: #### L 501.080 #### [facility] [address] [place], [address] Order Comment: 301.2 Performed By: #### L 503.6030, L503.6550, L503.0106, L100.0600, L506.0200 ####[facility] [address] [place], [address] Vitamin B12 ser/plasOrdered By: Janine Harrison on 08-02-2024 Cobalamin (Vitamin B12) [Mass/Vol] 1365 pg/mL High 180-914 [facility] Vitamin B12 ser/plasOrdered By: Kam Ocampo on 08-02-2024 Cobalamin (Vitamin B12) [Mass/Vol] 1056 pg/mL High 180-914 [facility] White blood cell (WBC) count Ordered By: Jamie Beltrán on 08-02-2024 WBC (Bld) [#/Vol] 7.7 10*3/uL 4.4-11.0 [facility] White blood cell countOrdere d By: Jamie Beltrán on 08-02-2024 White blood cell count 0-5 SEEN /hpf 0-5 [facility] Anion gap in Serum or Plasma Ordered By: Kam Ocampo on 08-01-2024 Anion gap [Moles/Vol] 9 mmol/L 5-15 [facility] BUN/creatinine ratioOrdered By: Kam Ocampo on 08-01-2024 Urea nitrogen/Creatinine [Mass ratio] 19.7 mg/mg 10- [facility] Basic Metabolic Profile (BMP )on 08-01-2024 BUN/CRE 19.7 RATIO Normal - [facility] Comment on above: Order Comment: 301.2 Performed By: #### L 500.4050, L100.0500 #### [facility] [address] [place], [address] Order Comment: 301.2 Performed By: #### L 100.0500, L500.2500 ####[facility] [address] [place], [address] Calcium [Mass/Vol] 9.1 mg/dL Normal 7.6-11.0 [facility] Comment on above: Order Comment: 301.2 Performed By: #### L 500.4050, L100.0500 #### [facility] [address] [place], [address] Order Comment: 301.2 Performed By: #### L 100.0500, L500.2500 ####[facility] [address] [place], [address] Chloride [Moles/Vol] 98 mmol/L Normal 98-108 [facility] Comment on above: Order Comment: 301.2 Performed By: #### L 500.4050, L100.0500 #### [facility] [address] [place], [address] Order Comment: 301.2 Performed By: #### L 100.0500, L500.2500 ####[facility] [address] [place], [address] CO2 [Moles/Vol] 32.0 mmol/L Normal 21.0-32.0 [facility] Comment on above: Order Comment: 301.2 Performed By: #### L 500.4050, L100.0500 #### [facility] [address] [place], [address] Order Comment: 301.2 Performed By: #### L 100.0500, L500.2500 ####[facility] [address] [place], [address] Creatinine [Mass/Vol] 0.88 mg/dL Normal 0.70-1.20 [facility] Comment on above: Order Comment: 301.2 Performed By: #### L 500.4050, L100.0500 #### [facility] [address] [place], [address] Order Comment: 301.2 Performed By: #### L 100.0500, L500.2500 ####[facility] [address] [place], [address] GAP 9 Normal 5-15 [facility] Comment on above: Order Comment: 301.2 Performed By: #### L 500.4050, L100.0500 #### [facility] [address] [place], [address] Order Comment: 301.2 Performed By: #### L 100.0500, L500.2500 ####[facility] [address] [place], [address] GFR/1.73 sq M.predicted among non-blacks MDRD (S/P/Bld) [Vol rate/Area] 63 mL/min/{1.73_m2} Normal >60 [facility] Comment on above: Order Comment: 301.2 Result Comment: mL/m in/1.73m2 CKD-EPI Creatinine Equation (2020) Performed By: #### L 500.4050, L100.0500 #### [facility] [address] [place], [address] Order Comment: 301.2 Result Comment: mL/m in/1.73m2 CKD-EPI Creatinine Equation (2020) Performed By: #### L 100.0500, L500.2500 ####[facility] [address] [place], [address] Glucose [Mass/Vol] 96 mg/dL Normal 70-99 [facility] Comment on above: Order Comment: 301.2 Performed By: #### L 500.4050, L100.0500 #### [facility] [address] [place], [address] Order Comment: 301.2 Performed By: #### L 100.0500, L500.2500 ####[facility] [address] [place], [address] Potassium [Moles/Vol] 4.1 mmol/L Normal 3.3-5.1 [facility] Comment on above: Order Comment: 301.2 Performed By: #### L 500.4050, L100.0500 #### [facility] [address] [place], [address] Order Comment: 301.2 Performed By: #### L 100.0500, L500.2500 ####[facility] [address] [place], [address] Sodium [Moles/Vol] 139 mmol/L Normal 133-145 [facility] Comment on above: Order Comment: 301.2 Performed By: #### L 500.4050, L100.0500 #### [facility] [address] [place], [address] Order Comment: 301.2 Performed By: #### L 100.0500, L500.2500 ####[facility] [address] [place], [address] Urea nitrogen [Mass/Vol] 17 mg/dL Normal 4-19 [facility] Comment on above: Order Comment: 301.2 Performed By: #### L 500.4050, L100.0500 #### [facility] [address] [place], [address] Order Comment: 301.2 Performed By: #### L 100.0500, L500.2500 ####[facility] [address] [place], [address] CBC-Complete Blood Cnt No Di ffon 08-01-2024 Erythrocyte distribution width (RBC) [Ratio] 14.6 % Normal 11.6-14.6 [facility] Comment on above: Order Comment: 301.2 Performed By: #### L 500.4050, L100.0500 #### [facility] [address] [place], [address] Order Comment: 301.2 Performed By: #### L 100.0500, L500.2500 ####[facility] [address] [place], [address] Hematocrit (Bld) [Volume fraction] 20.9 % Low 37-47 [facility] Comment on above: Order Comment: 301.2 Performed By: #### L 500.4050, L100.0500 #### [facility] [address] [place], [address] Order Comment: 301.2 Performed By: #### L 100.0500, L500.2500 ####[facility] [address] [place], [address] Hemoglobin (Bld) [Mass/Vol] 7.0 g/dL Low 12.0-15.0 [facility] Comment on above: Order Comment: 301.2 Performed By: #### L 500.4050, L100.0500 #### [facility] [address] [place], [address] Order Comment: 301.2 Performed By: #### L 100.0500, L500.2500 ####[facility] [address] [place], [address] MCH (RBC) [Entitic mass] 33.7 pg High 27.0-32.0 [facility] Comment on above: Order Comment: 301.2 Performed By: #### L 500.4050, L100.0500 #### [facility] [address] [place], [address] Order Comment: 301.2 Performed By: #### L 100.0500, L500.2500 ####[facility] [address] [place], [address] MCHC (RBC) [Mass/Vol] 33.5 g/dL Normal 32-36 [facility] Comment on above: Order Comment: 301.2 Performed By: #### L 500.4050, L100.0500 #### [facility] [address] [place], [address] Order Comment: 301.2 Performed By: #### L 100.0500, L500.2500 ####[facility] [address] [place], [address] MCV (RBC) [Entitic vol] 100.5 fL High 81-99 [facility] Comment on above: Order Comment: 301.2 Performed By: #### L 500.4050, L100.0500 #### [facility] [address] [place], [address] Order Comment: 301.2 Performed By: #### L 100.0500, L500.2500 ####[facility] [address] [place], [address] Platelet mean volume (Bld) [Entitic vol] 9.3 fL Normal 6.2-12.0 [facility] Comment on above: Order Comment: 301.2 Performed By: #### L 500.4050, L100.0500 #### [facility] [address] [place], [address] Order Comment: 301.2 Performed By: #### L 100.0500, L500.2500 ####[facility] [address] [place], [address] Platelets (Bld) [#/Vol] 224 10*3/uL Normal 150-450 [facility] Comment on above: Order Comment: 301.2 Performed By: #### L 500.4050, L100.0500 #### [facility] [address] [place], [address] Order Comment: 301.2 Performed By: #### L 100.0500, L500.2500 ####[facility] [address] [place], [address] RBC (Bld) [#/Vol] 2.08 10*6/uL Low 4.2-5.4 [facility] Comment on above: Order Comment: 301.2 Performed By: #### L 500.4050, L100.0500 #### [facility] [address] [place], [address] Order Comment: 301.2 Performed By: #### L 100.0500, L500.2500 ####[facility] [address] [place], [address] RDW SD 51.6 fl High 35.1-43.9 [facility] Comment on above: Order Comment: 301.2 Performed By: #### L 500.4050, L100.0500 #### [facility] [address] [place], [address] Order Comment: 301.2 Performed By: #### L 100.0500, L500.2500 ####[facility] [address] [place], [address] WBC (Bld) [#/Vol] 6.6 10*3/uL Normal 4.4-11.0 [facility] Comment on above: Order Comment: 301.2 Performed By: #### L 500.4050, L100.0500 #### [facility] [address] [place], [address] Order Comment: 301.2 Performed By: #### L 100.0500, L500.2500 ####[facility] [address] [place], [address] Carbon dioxide, total [Moles /volume] in Central venous bloodOrdered By: Kam Ocampo on 08-01-2024 CO2 [Moles/Vol] 32.0 mmol/L 21.0-32.0 [facility] Chloride assayOrdered By: Dugan on 08-01-2024 Chloride [Moles/Vol] 98 mmol/L 98-108 [facility] Erythrocyte distribution wid th ratioOrdered By: Kam Ocampo on 08-01-2024 Erythrocyte distribution width (RBC) [Ratio] 14.6 % 11.6-14.6 [facility] Erythrocyte distribution wid th standard deviationOrdered By: Kam Ocampo on 08-01-2024 Erythrocyte distribution width (RBC) [Ratio] 51.6 fl High 35.1-43.9 [facility] Glomerular filtration rate ( GFR) estimation/1.73 sq m using serum, plasma, or whole bOrdered By: Kam Ocampo on 08-01-2024 GFR/1.73 sq M.predicted among non-blacks MDRD (S/P/Bld) [Vol rate/Area] 63 mL/min/{1.73_m2} >60 [facility] Comment on above: mL/min/1.73m2 CKD-EP I Creatinine Equation (2020) Hematocrit Auto (Bld) [Volum e fraction]Ordered By: Kam Ocampo on 08-01-2024 Hematocrit (Bld) [Volume fraction] 20.9 % Low 37-47 [facility] Hemoglobin measurementOrdere d By: Kam Ocampo on 08-01-2024 Hemoglobin (Bld) [Mass/Vol] 7.0 g/dL Low 12.0-15.0 [facility] MCV (mean corpuscular volume ) determinationOrdered By: Kam Ocampo on 08-01-2024 MCV (RBC) [Entitic vol] 100.5 fL High 81-99 [facility] Mean corpuscular hemoglobin (MCH) determinationOrdered By: Kam Ocampo on 08-01-2024 MCH (RBC) [Entitic mass] 33.7 pg High 27.0-32.0 [facility] Mean corpuscular hemoglobin concentration (MCHC) determinationOrdered By: Kam Ocampo on 08-01-2024 MCHC (RBC) [Mass/Vol] 33.5 g/dL 32-36 [facility] Mean platelet volume determi nationOrdered By: Kam Ocampo on 08-01-2024 Platelet mean volume (Bld) [Entitic vol] 9.3 fL 6.2-12.0 [facility] Platelet countOrdered By: Dugan on 08-01-2024 Platelets (Bld) [#/Vol] 224 10*3/uL 150-450 [facility] Potassium measurement (mass/ volume)Ordered By: Kam Ocampo on 08-01-2024 Potassium (Unsp spec) [Mass/Vol] 4.1 mmol/L 3.3-5.1 [facility] RBC Auto (Bld) [#/Vol]Ordere d By: Kam Ocampo on 08-01-2024 RBC (Bld) [#/Vol] 2.08 10*6/uL Low 4.2-5.4 [facility] Serum creatinine measurement (mass/volume)Ordered By: Kam Ocampo on 08-01-2024 Creatinine [Mass/Vol] 0.88 mg/dL 0.70-1.20 [facility] Serum glucose measurement (m ass/volume)Ordered By: Kam Ocampo on 08-01-2024 Glucose [Mass/Vol] 96 mg/dL 70-99 [facility] Serum or plasma calcium светлана urement (mass/volume)Ordered By: Kam Ocmapo on 08-01-2024 Calcium [Mass/Vol] 9.1 mg/dL 7.6-11.0 [facility] Serum or plasma urea nitroge n measurement (mass/volume)Ordered By: Kam Ocampo on 08-01-2024 Urea nitrogen [Mass/Vol] 17 mg/dL 4-19 [facility] Sodium levelOrdered By: Kam Ocampo on 08-01-2024 Sodium [Moles/Vol] 139 mmol/L 133-145 [facility] White blood cell (WBC) count Ordered By: Kam Ocampo on 08-01-2024 WBC (Bld) [#/Vol] 6.6 10*3/uL 4.4-11.0 [facility] CBC-Complete Blood Cnt No Di ffon 07-29-2024 HCT Normal 37-47 [facility] Comment on above: Result Comment: Canc elled via OM: MD Ordered Performed By: #### L 100.0500 ####[facility] [address] [place], [place], [address] HGB Normal 12.0-15.0 [facility] Comment on above: Result Comment: Canc elled via OM: MD Ordered Performed By: #### L 100.0500 ####[facility] [address] [place], [address] MCH Normal 27.0-32.0 [facility] Comment on above: Result Comment: Canc elled via OM: MD Ordered Performed By: #### L 100.0500 ####[facility] [address] [place], [address] MCHC Normal 32-36 [facility] Comment on above: Result Comment: Canc elled via OM: MD Ordered Performed By: #### L 100.0500 ####[facility] [address] [place], [address] MCV Normal 81-99 [facility] Comment on above: Result Comment: Canc elled via OM: MD Ordered Performed By: #### L 100.0500 ####[facility] [address] [place], [address] PLT Normal 150-450 [facility] Comment on above: Result Comment: Canc elled via OM: MD Ordered Performed By: #### L 100.0500 ####[facility] [address] [place], [address] RBC Normal 4.2-5.4 [facility] Comment on above: Result Comment: Canc elled via OM: MD Ordered Performed By: #### L 100.0500 ####[facility] [address] [place], [address] RDW CV Normal 11.6-14.6 [facility] Comment on above: Result Comment: Canc elled via OM: MD Ordered Performed By: #### L 100.0500 ####[facility] [address] [place], [address] RDW SD Normal 35.1-43.9 [facility] Comment on above: Result Comment: Canc elled via OM: MD Ordered Performed By: #### L 100.0500 ####[facility] [address] [place], [address] WBC Normal 4.4-11.0 [facility] Comment on above: Result Comment: Canc elled via OM: MD Ordered Performed By: #### L 100.0500 ####[facility] [address] [place], [address] Absolute lymphocyte countOrd ered By: Neymar Cunningham on 07-28-2024 Lymphocytes Auto (Unsp spec) [#/Vol] 2.02 10*3/uL 0.83-4.51 [facility] Absolute neutrophil countOrd ered By: Neymar Cunningham on 07-28-2024 Neutrophils (Bld) [#/Vol] 5.3 10*3/uL 2.0-7.7 [facility] Anion gap in Serum or Plasma Ordered By: Neymar Cunningham on 07-28-2024 Anion gap [Moles/Vol] 7 mmol/L 06-23 [facility] Automated lymphocyte count a s percentage of total leukocytesOrdered By: Neymar Cunningham on 07-28-2024 Lymphocytes/100 WBC Auto (Unsp spec) 25.1 % [facility] BUN/creatinine ratioOrdered By: Neymarremi Cunningham on 07-28-2024 Urea nitrogen/Creatinine [Mass ratio] 19.7 mg/mg 11-28 [facility] Basic Metabolic Profile (BMP )on 07-28-2024 BUN/CRE 19.7 RATIO Normal 11-28 [facility] Comment on above: Performed By: #### L 500.2500, L100.0100 ####[facility] [address] [place], [address] Calcium [Mass/Vol] 8.8 mg/dL Normal 7.6-11.0 [facility] Comment on above: Performed By: #### L 500.2500, L100.0100 ####[facility] [address] [place], [address] Chloride [Moles/Vol] 101 mmol/L Normal 98-108 [facility] Comment on above: Performed By: #### L 500.2500, L100.0100 ####[facility] [address] [place], [address] CO2 [Moles/Vol] 29.4 mmol/L Normal 21.0-32.0 [facility] Comment on above: Performed By: #### L 500.2500, L100.0100 ####[facility] [address] [place], [address] Creatinine [Mass/Vol] 0.88 mg/dL Normal 0.70-1.20 [facility] Comment on above: Performed By: #### L 500.2500, L100.0100 ####[facility] [address] [place], [address] ECRCL 31.74 ml/min Low 50-250 [facility] Comment on above: Performed By: #### L 500.2500, L100.0100 ####[facility] [address] [place], [address] GAP 7 Normal 5-15 [facility] Comment on above: Performed By: #### L 500.2500, L100.0100 ####[facility] [address] [place], [address] GFR/1.73 sq M.predicted among non-blacks MDRD (S/P/Bld) [Vol rate/Area] 63 mL/min/{1.73_m2} Normal >60 [facility] Comment on above: Result Comment: mL/m in/1.73m2 CKD-EPI Creatinine Equation (2020) Performed By: #### L 500.2500, L100.0100 ####[facility] [address] [place], [address] Glucose [Mass/Vol] 98 mg/dL Normal 70-99 [facility] Comment on above: Performed By: #### L 500.2500, L100.0100 ####[facility] [address] [place], [address] Potassium [Moles/Vol] 4.2 mmol/L Normal 3.3-5.1 [facility] Comment on above: Performed By: #### L 500.2500, L100.0100 ####[facility] [address] [place], [address] Sodium [Moles/Vol] 137 mmol/L Normal 133-145 [facility] Comment on above: Performed By: #### L 500.2500, L100.0100 ####[facility] [address] [place], [address] Urea nitrogen [Mass/Vol] 17 mg/dL Normal 4-19 [facility] Comment on above: Performed By: #### L 500.2500, L100.0100 ####[facility] [address] [place], [address] Basophil percentageOrdered B y: Neymar Cunningham on 07-28-2024 Basophils/100 WBC (Bld) 0.4 % 0-1 [facility] CBC W/Diff, Automatedon 07-10 Absolute Lymph 2.02 X10 3/uL Normal 0.83-4.51 [facility] Comment on above: Performed By: #### L 500.2500, L100.0100 ####[facility] [address] [place], [address] Absolute Neut 5.3 X10 3/uL Normal 2.0-7.7 [facility] Comment on above: Performed By: #### L 500.2500, L100.0100 ####[facility] [address] [place], [address] Basophils/100 WBC (Bld) 0.4 % Normal 0-1 [facility] Comment on above: Performed By: #### L 500.2500, L100.0100 ####[facility] [address] [place], [address] Eosinophils/100 WBC (Bld) 2.9 % Normal 0-5 [facility] Comment on above: Performed By: #### L 500.2500, L100.0100 ####[facility] [address] [place], [address] Erythrocyte distribution width (RBC) [Ratio] 14.1 % Normal 11.6-14.6 [facility] Comment on above: Performed By: #### L 500.2500, L100.0100 ####[facility] [address] [place], [address] Hematocrit (Bld) [Volume fraction] 22.1 % Low 37-47 [facility] Comment on above: Performed By: #### L 500.2500, L100.0100 ####[facility] [address] [place], [address] Hemoglobin (Bld) [Mass/Vol] 7.3 g/dL Low 12.0-15.0 [facility] Comment on above: Performed By: #### L 500.2500, L100.0100 ####[facility] [address] [place], [address] IG% 0.100 Normal 0.0-0.9 [facility] Comment on above: Result Comment: IG% - Immature Granulocytes (promyelocytes, myelocytes andmetamyelocytes) > 1% indicates that a LEFT SHIFT is Present. Performed By: #### L 500.2500, L100.0100 ####[facility] [address] [place], [address] Lymphocytes/100 WBC (Bld) 25.1 % Normal 19-41 [facility] Comment on above: Performed By: #### L 500.2500, L100.0100 ####[facility] [address] [place], [address] MCH (RBC) [Entitic mass] 32.6 pg High 27.0-32.0 [facility] Comment on above: Performed By: #### L 500.2500, L100.0100 ####[facility] [address] [place], [address] MCHC (RBC) [Mass/Vol] 33.0 g/dL Normal 32-36 [facility] Comment on above: Performed By: #### L 500.2500, L100.0100 ####[facility] [address] [place], [address] MCV (RBC) [Entitic vol] 98.7 fL Normal 81-99 [facility] Comment on above: Performed By: #### L 500.2500, L100.0100 ####[facility] [address] [place], [address] Monocytes/100 WBC (Bld) 5.8 % Normal 0-10 [facility] Comment on above: Performed By: #### L 500.2500, L100.0100 ####[facility] [address] [place], [place], [address] Neutrophils/100 WBC (Bld) 65.7 % Normal 47-70 [facility] Comment on above: Performed By: #### L 500.2500, L100.0100 ####[facility] [address] [place], [address] Nucleated RBC (Bld) [#/Vol] 0 10*3/uL Normal 0-5 [facility] Comment on above: Performed By: #### L 500.2500, L100.0100 ####[facility] [address] [place], [address] Platelet mean volume (Bld) [Entitic vol] 9.4 fL Normal 6.2-12.0 [facility] Comment on above: Performed By: #### L 500.2500, L100.0100 ####[facility] [address] [place], [address] Platelets (Bld) [#/Vol] 135 10*3/uL Low 150-450 [facility] Comment on above: Performed By: #### L 500.2500, L100.0100 ####[facility] [address] [place], [address] RBC (Bld) [#/Vol] 2.24 10*6/uL Low 4.2-5.4 [facility] Comment on above: Performed By: #### L 500.2500, L100.0100 ####[facility] [address] [place], [address] RDW SD 50.4 fl High 35.1-43.9 [facility] Comment on above: Performed By: #### L 500.2500, L100.0100 ####[facility] [address] [place], [address] WBC (Bld) [#/Vol] 8.1 10*3/uL Normal 4.4-11.0 [facility] Comment on above: Performed By: #### L 500.2500, L100.0100 ####[facility] [address] [place], [address] Carbon dioxide, total [Moles /volume] in Central venous bloodOrdered By: Neymar Cunningham on 07-28-2024 CO2 [Moles/Vol] 29.4 mmol/L 21.0-32.0 [facility] Chloride assayOrdered By: Angel Cunningham on 07-28-2024 Chloride [Moles/Vol] 101 mmol/L 98-108 [facility] Electrocardiogram reportOrde red By: Kaden Corcoran on 07-28-[address] [facility] Services [address] [place] [address] 12 Lead EKG 07/25/24 1542 MR#: [id number] Acct: [id number] Name: KATHERINE JUDGE Rep #:[id number] : 1935 89 From: Kaden Corcoran MD Attending Dr: Dr. Neymar Cunningham MD Status: ADM IN Ordering Dr: Jacobo Moya DO Date: 07/25/24 [place] [facility] [place] Sex: F C Admitted: 07/25/24 Test Reason [...] available Confirmed by KADEN CORCORAN MD ([id number]), publishing editor SANDY BAUTISTA ([id number]) on :37:03 AM Referred By: Confirmed By: KADEN CORCORAN MD 07/28/24 0537 Date _ Kaden Corcoran MD CC: Dr. Kam Ocampo Sr., DO; Dr. Jacobo Moya, DO; Dr. Neymar Cunningham MD ~ Signed [facility] Work Phone: Eosinophil percentageOrdered By: Neymar Cunningham on 07-28-2024 Eosinophils/100 WBC (Bld) 2.9 % 0-5 [facility] Erythrocyte distribution wid th ratioOrdered By: Neymar Cunningham on 07-28-2024 Erythrocyte distribution width (RBC) [Ratio] 14.1 % 11.6-14.6 [facility] Erythrocyte distribution wid th standard deviationOrdered By: Neymar Cunningham on 07-28-2024 Erythrocyte distribution width (RBC) [Ratio] 50.4 fl High 35.1-43.9 [facility] Ferritinon 07-28-2024 Ferritin [Mass/Vol] 176 ng/mL Normal 22-378 [facility] Comment on above: Performed By: #### L 503.0106, L503.6030, L503.6550, L100.9950 ####[facility] [address] [place], [place], [id number] Folate [Moles/volume] in Ser um or PlasmaOrdered By: Neymar Cunningham on 07-28-2024 Folate [Moles/Vol] 23.10 ng/mL 4.60-34.80 [facility] Comment on above: Hemolysis, Results w ill be affected, Requires Recollection. Folates,Serum (Folic Acid)on 07-28-2024 FOLATES,SERUM 23.10 ng/mL Normal 4.60-34.80 [facility] Comment on above: Result Comment: Hemo lysis, Results will be affected, Requires Recollection. Performed By: #### L 506.0200 ####[facility] [address] [place], [address] Glomerular filtration rate ( GFR) estimation/1.73 sq m using serum, plasma, or whole bOrdered By: Neymar Cunningham on 07-28-2024 GFR/1.73 sq M.predicted among non-blacks MDRD (S/P/Bld) [Vol rate/Area] 63 mL/min/{1.73_m2} >60 [facility] Comment on above: mL/min/1.73m2 CKD-EP I Creatinine Equation (2020) HH, Hemoglobin AND Hematocri ton 07-28-2024 HCT Normal 37-47 [facility] Comment on above: Result Comment: Canc elled via OM: Order cancelled - Patient discharged Performed By: #### L 100.0600 ####[facility] [address] [place], [address] HGB Normal 12.0-15.0 [facility] Comment on above: Result Comment: Canc elled via OM: Order cancelled - Patient discharged Performed By: #### L 100.0600 ####[facility] [address] [place], [address] HCT Normal 37-47 [facility] Comment on above: Result Comment: DANIEL ENT DISCHARGED Performed By: #### L 100.0600 ####[facility] [address] [place], [address] HGB Normal 12.0-15.0 [facility] Comment on above: Result Comment: DANIEL ENT DISCHARGED Performed By: #### L 100.0600 ####[facility] [address] [place], [address] Hematocrit Auto (Bld) [Volum e fraction]Ordered By: Neymar Cunningham on 07-28-2024 Hematocrit (Bld) [Volume fraction] 22.1 % Low 37-47 [facility] Hemoglobin measurementOrdere d By: Neymar Cunningham on 07-28-2024 Hemoglobin (Bld) [Mass/Vol] 7.3 g/dL Low 12.0-15.0 [facility] Immature granulocytes/100 WB C Auto (Bld)Ordered By: Neymar Cunningham on 07-28-2024 Immature granulocytes/100 WBC (Bld) 0.100 % 0.0-0.9 [facility] Comment on above: IG% - Immature Granu locytes (promyelocytes, myelocytes and metamyelocytes) > 1% indicates that a LEFT SHIFT is Present. Iron measurement (mass/mass) Ordered By: Neymar Cunningham on 07-28-2024 Iron (Unsp spec) [Mass/Mass] 38 ug/dL Low 50-170 [facility] Iron+Iron Binding Capacityon 07-28-2024 TIBC 175 ug/dL Low 250-450 [facility] Comment on above: Performed By: #### L 503.0106, L503.6030, L503.6550, L100.9950 ####[facility] [address] [place], [address] MCV (mean corpuscular volume ) determinationOrdered By: Neymar Cunningham on 07-28-2024 MCV (RBC) [Entitic vol] 98.7 fL 81-99 [facility] Mean corpuscular hemoglobin (MCH) determinationOrdered By: Neymar Cunningham on 07-28-2024 MCH (RBC) [Entitic mass] 32.6 pg High 27.0-32.0 [facility] Mean corpuscular hemoglobin concentration (MCHC) determinationOrdered By: Neymar Cunningham on 07-28-2024 MCHC (RBC) [Mass/Vol] 33.0 g/dL 32-36 [facility] Mean platelet volume determi nationOrdered By: Neymar Cunningham on 07-28-2024 Platelet mean volume (Bld) [Entitic vol] 9.4 fL 6.2-12.0 [facility] Monocyte percentageOrdered B y: Neymar Cunningham on 07-28-2024 Monocytes/100 WBC (Bld) 5.8 % 0-10 [facility] Neutrophil percentageOrdered By: Neymar Cunningham on 07-28-2024 Neutrophils/100 WBC (Bld) 65.7 % 47-70 [facility] No Panel InformationOrdered By: Neymar Cunningham on 07-28-2024 Unsaturated Iron Binding Capacity 137 ug/dL Low 228-428 [facility] Nucleated red blood cell per centageOrdered By: Neymar Cunningham on 07-28-2024 Nucleated RBC/100 WBC (Bld) [Ratio] 0 % 0-5 [facility] Platelet countOrdered By: Angel Cunningham on 07-28-2024 Platelets (Bld) [#/Vol] 135 10*3/uL Low 150-450 [facility] Potassium measurement (mass/ volume)Ordered By: Neymar Cunningham on 07-28-2024 Potassium (Unsp spec) [Mass/Vol] 4.2 mmol/L 3.3-5.1 [facility] RBC Auto (Bld) [#/Vol]Ordere d By: Neymar Cunningham on 07-28-2024 RBC (Bld) [#/Vol] 2.24 10*6/uL Low 4.2-5.4 [facility] Retic Panelon 07-28-2024 IM RET FRACTION 16.80 High 3.00-15.90 [facility] Comment on above: Performed By: #### L 503.0106, L503.6030, L503.6550, L100.9950 ####[facility] [address] [place], [place], [address] RET-HE 34.0 pg Normal 30-35 [facility] Comment on above: Performed By: #### L 503.0106, L503.6030, L503.6550, L100.9950 ####[facility] [address] [place], [address] Retic Count 2.42 High 0.5-1.5 [facility] Comment on above: Performed By: #### L 503.0106, L503.6030, L503.6550, L100.9950 ####[facility] [address] [place], [address] Reticulocyte hemoglobin equi valent (RET-He) measurementOrdered By: Neymar Cunningham on 07-28-2024 Hemoglobin (Reticulocytes) [Entitic mass] 34.0 pg 30-35 [facility] Reticulocytes Auto (Bld) [#/ Vol]Ordered By: Neymar Cunningham on 07-28-2024 Reticulocytes/100 RBC (Bld) 2.42 % High 0.5-1.5 [facility] Serum creatinine measurement (mass/volume)Ordered By: Neymar Cunningham on 07-28-2024 Creatinine [Mass/Vol] 0.88 mg/dL 0.70-1.20 [facility] Serum glucose measurement (m ass/volume)Ordered By: Neymar Cunningham on 07-28-2024 Glucose [Mass/Vol] 98 mg/dL 70-99 [facility] Serum or plasma calcium светлана urement (mass/volume)Ordered By: Neymar Cunningham on 07-28-2024 Calcium [Mass/Vol] 8.8 mg/dL 7.6-11.0 [facility] Serum or plasma ferritin maria d surement (mass/volume)Ordered By: Neymar Cunningham on 07-28-2024 Ferritin [Mass/Vol] 176 ng/mL 22-378 [facility] Serum or plasma iron saturat ion measurement (mass fraction)Ordered By: Neymar Cunningham on 07-28-2024 Iron saturation [Mass fraction] 22.0 % 13-59 [facility] Comment on above: Previous reported re sult: 22.0 %Edited by: BRANDEN on 07/28/24:1516 Serum or plasma urea nitroge n measurement (mass/volume)Ordered By: Neymar Cunningham on 07-28-2024 Urea nitrogen [Mass/Vol] 17 mg/dL 4-19 [facility] Sodium levelOrdered By: Olive Cunningham on 07-28-2024 Sodium [Moles/Vol] 137 mmol/L 133-145 [facility] Vitamin B12on 07-28-2024 Cobalamin (Vitamin B12) [Mass/Vol] 867 pg/mL Normal 180-914 [facility] Comment on above: Performed By: #### L 503.0106, L503.6030, L503.6550, L100.9950 ####[facility] [address] [place], [address] Vitamin B12 ser/plasOrdered By: Neymar Cunningham on 07-28-2024 Cobalamin (Vitamin B12) [Mass/Vol] 867 pg/mL 180-914 [facility] White blood cell (WBC) count Ordered By: Neymar Cunningham on 07-28-2024 WBC (Bld) [#/Vol] 8.1 10*3/uL 4.4-11.0 [facility] Basic Metabolic Profile (BMP )on 07-27-2024 BUN/CRE 16.5 RATIO Normal 10-20 [facility] Comment on above: Performed By: #### L 500.2500, L100.0100 ####[facility] [address] [place], [address] Calcium [Mass/Vol] 8.8 mg/dL Normal 7.6-11.0 [facility] Comment on above: Performed By: #### L 500.2500, L100.0100 ####[facility] [address] [place], [address] Chloride [Moles/Vol] 99 mmol/L Normal 98-108 [facility] Comment on above: Performed By: #### L 500.2500, L100.0100 ####[facility] [address] [place], [address] CO2 [Moles/Vol] 27.0 mmol/L Normal 21.0-32.0 [facility] Comment on above: Performed By: #### L 500.2500, L100.0100 ####[facility] [address] [place], [address] Creatinine [Mass/Vol] 0.79 mg/dL Normal 0.70-1.20 [facility] Comment on above: Performed By: #### L 500.2500, L100.0100 ####[facility] [address] [place], [address] ECRCL 34.91 ml/min Low 50-250 [facility] Comment on above: Performed By: #### L 500.2500, L100.0100 ####[facility] [address] [place], [address] GAP 9 Normal 5-15 [facility] Comment on above: Performed By: #### L 500.2500, L100.0100 ####[facility] [address] [place], [address] GFR/1.73 sq M.predicted among non-blacks MDRD (S/P/Bld) [Vol rate/Area] 72 mL/min/{1.73_m2} Normal >60 [facility] Comment on above: Result Comment: mL/m in/1.73m2 CKD-EPI Creatinine Equation (2020) Performed By: #### L 500.2500, L100.0100 ####[facility] [address] [place], [address] Glucose [Mass/Vol] 140 mg/dL High 70-99 [facility] Comment on above: Performed By: #### L 500.2500, L100.0100 ####[facility] [address] [place], [address] Potassium [Moles/Vol] 4.6 mmol/L Normal 3.3-5.1 [facility] Comment on above: Performed By: #### L 500.2500, L100.0100 ####[facility] [address] [place], [address] Sodium [Moles/Vol] 135 mmol/L Normal 133-145 [facility] Comment on above: Performed By: #### L 500.2500, L100.0100 ####[facility] [address] [place], [address] Urea nitrogen [Mass/Vol] 13 mg/dL Normal 4-19 [facility] Comment on above: Performed By: #### L 500.2500, L100.0100 ####[facility] [address] [place], [address] CBC W/Diff, Automatedon 07-10 Absolute Lymph 0.91 X10 3/uL Normal 0.83-4.51 [facility] Comment on above: Performed By: #### L 500.2500, L100.0100 ####[facility] [address] [place], [address] Absolute Neut 9.4 X10 3/uL High 2.0-7.7 [facility] Comment on above: Performed By: #### L 500.2500, L100.0100 ####[facility] [address] [place], [address] Basophils/100 WBC (Bld) 0.1 % Normal 0-1 [facility] Comment on above: Performed By: #### L 500.2500, L100.0100 ####[facility] [address] [place], [address] Eosinophils/100 WBC (Bld) 0.0 % Normal 0-5 [facility] Comment on above: Performed By: #### L 500.2500, L100.0100 ####[facility] [address] [place], [address] Erythrocyte distribution width (RBC) [Ratio] 14.2 % Normal 11.6-14.6 [facility] Comment on above: Performed By: #### L 500.2500, L100.0100 ####[facility] [address] [place], [address] Hematocrit (Bld) [Volume fraction] 27.0 % Low 37-47 [facility] Comment on above: Performed By: #### L 500.2500, L100.0100 ####[facility] [address] [place], [address] Hemoglobin (Bld) [Mass/Vol] 9.0 g/dL Low 12.0-15.0 [facility] Comment on above: Performed By: #### L 500.2500, L100.0100 ####[facility] [address] [place], [address] IG% 0.400 Normal 0.0-0.9 [facility] Comment on above: Result Comment: IG% - Immature Granulocytes (promyelocytes, myelocytes andmetamyelocytes) > 1% indicates that a LEFT SHIFT is Present. Performed By: #### L 500.2500, L100.0100 ####[facility] [address] [place], [address] Lymphocytes/100 WBC (Bld) 8.5 % Low 19-41 [facility] Comment on above: Performed By: #### L 500.2500, L100.0100 ####[facility] [address] [place], [address] MCH (RBC) [Entitic mass] 33.0 pg High 27.0-32.0 [facility] Comment on above: Performed By: #### L 500.2500, L100.0100 ####[facility] [address] [place], [address] MCHC (RBC) [Mass/Vol] 33.3 g/dL Normal 32-36 [facility] Comment on above: Performed By: #### L 500.2500, L100.0100 ####[facility] [address] [place], [address] MCV (RBC) [Entitic vol] 98.9 fL Normal 81-99 [facility] Comment on above: Performed By: #### L 500.2500, L100.0100 ####[facility] [address] [place], [address] Monocytes/100 WBC (Bld) 2.9 % Normal 0-10 [facility] Comment on above: Performed By: #### L 500.2500, L100.0100 ####[facility] [address] [place], [address] Neutrophils/100 WBC (Bld) 88.1 % High 47-70 [facility] Comment on above: Performed By: #### L 500.2500, L100.0100 ####[facility] [address] [place], [address] Nucleated RBC (Bld) [#/Vol] 0 10*3/uL Normal 0-5 [facility] Comment on above: Performed By: #### L 500.2500, L100.0100 ####[facility] [address] [place], [address] Platelet mean volume (Bld) [Entitic vol] 9.3 fL Normal 6.2-12.0 [facility] Comment on above: Performed By: #### L 500.2500, L100.0100 ####[facility] [address] [place], [address] Platelets (Bld) [#/Vol] 152 10*3/uL Normal 150-450 [facility] Comment on above: Performed By: #### L 500.2500, L100.0100 ####[facility] [address] [place], [address] RBC (Bld) [#/Vol] 2.73 10*6/uL Low 4.2-5.4 [facility] Comment on above: Performed By: #### L 500.2500, L100.0100 ####[facility] [address] [place], [address] RDW SD 51.3 fl High 35.1-43.9 [facility] Comment on above: Performed By: #### L 500.2500, L100.0100 ####[facility] [address] [place], [address] WBC (Bld) [#/Vol] 10.7 10*3/uL Normal 4.4-11.0 [facility] Comment on above: Performed By: #### L 500.2500, L100.0100 ####[facility] [address] [place], [address] Basic Metabolic Profile (BMP )on 07-26-2024 BUN/CRE 12.8 RATIO Normal 10-20 [facility] Comment on above: Performed By: #### L 500.2500, L100.0500 ####[facility] [address] [place], [address] Calcium [Mass/Vol] 8.9 mg/dL Normal 7.6-11.0 [facility] Comment on above: Performed By: #### L 500.2500, L100.0500 ####[facility] [address] [place], [address] Chloride [Moles/Vol] 99 mmol/L Normal 98-108 [facility] Comment on above: Performed By: #### L 500.2500, L100.0500 ####[facility] [address] [place], [address] CO2 [Moles/Vol] 28.3 mmol/L Normal 21.0-32.0 [facility] Comment on above: Performed By: #### L 500.2500, L100.0500 ####[facility] [address] [place], [address] Creatinine [Mass/Vol] 0.90 mg/dL Normal 0.70-1.20 [facility] Comment on above: Performed By: #### L 500.2500, L100.0500 ####[facility] [address] [place], [address] ECRCL 31.04 ml/min Low 50-250 [facility] Comment on above: Performed By: #### L 500.2500, L100.0500 ####[facility] [address] [place], [address] GAP 8 Normal 5-15 [facility] Comment on above: Performed By: #### L 500.2500, L100.0500 ####[facility] [address] [place], [address] GFR/1.73 sq M.predicted among non-blacks MDRD (S/P/Bld) [Vol rate/Area] 61 mL/min/{1.73_m2} Normal >60 [facility] Comment on above: Result Comment: mL/m in/1.73m2 CKD-EPI Creatinine Equation (2020) Performed By: #### L 500.2500, L100.0500 ####[facility] [address] [place], [address] Glucose [Mass/Vol] 151 mg/dL High 70-99 [facility] Comment on above: Performed By: #### L 500.2500, L100.0500 ####[facility] [address] [place], [address] Potassium [Moles/Vol] 4.4 mmol/L Normal 3.3-5.1 [facility] Comment on above: Performed By: #### L 500.2500, L100.0500 ####[facility] [address] [place], [address] Sodium [Moles/Vol] 135 mmol/L Normal 133-145 [facility] Comment on above: Performed By: #### L 500.2500, L100.0500 ####[facility] [address] [place], [address] Urea nitrogen [Mass/Vol] 12 mg/dL Normal 4-19 [facility] Comment on above: Performed By: #### L 500.2500, L100.0500 ####[facility] [address] [place], [address] CBC-Complete Blood Cnt No Di ffon 07-26-2024 Erythrocyte distribution width (RBC) [Ratio] 14.1 % Normal 11.6-14.6 [facility] Comment on above: Performed By: #### L 500.2500, L100.0500 ####[facility] [address] [place], [address] Hematocrit (Bld) [Volume fraction] 29.0 % Low 37-47 [facility] Comment on above: Performed By: #### L 500.2500, L100.0500 ####[facility] [address] [place], [address] Hemoglobin (Bld) [Mass/Vol] 10.0 g/dL Low 12.0-15.0 [facility] Comment on above: Performed By: #### L 500.2500, L100.0500 ####[facility] [address] [place], [address] MCH (RBC) [Entitic mass] 33.2 pg High 27.0-32.0 [facility] Comment on above: Performed By: #### L 500.2500, L100.0500 ####[facility] [address] [place], [address] MCHC (RBC) [Mass/Vol] 34.5 g/dL Normal 32-36 [facility] Comment on above: Performed By: #### L 500.2500, L100.0500 ####[facility] [address] [place], [address] MCV (RBC) [Entitic vol] 96.3 fL Normal 81-99 [facility] Comment on above: Performed By: #### L 500.2500, L100.0500 ####[facility] [address] [place], [address] Platelet mean volume (Bld) [Entitic vol] 8.9 fL Normal 6.2-12.0 [facility] Comment on above: Performed By: #### L 500.2500, L100.0500 ####[facility] [address] [place], [address] Platelets (Bld) [#/Vol] 171 10*3/uL Normal 150-450 [facility] Comment on above: Performed By: #### L 500.2500, L100.0500 ####[facility] [address] [place], [address] RBC (Bld) [#/Vol] 3.01 10*6/uL Low 4.2-5.4 [facility] Comment on above: Performed By: #### L 500.2500, L100.0500 ####[facility] [address] [place], [address] RDW SD 49.8 fl High 35.1-43.9 [facility] Comment on above: Performed By: #### L 500.2500, L100.0500 ####[facility] [address] [place], [address] WBC (Bld) [#/Vol] 8.9 10*3/uL Normal 4.4-11.0 [facility] Comment on above: Performed By: #### L 500.2500, L100.0500 ####[facility] [address] [place], [address] Echocardiogram study reportO rdered By: Kaden Corcoran on 07-26-2024 Study report [facility] [address] [place] [address] Echo Complete 07/26/24 0824 MR#: [id number] Acct: [id number] Name: KATHERINE JUDGE Rep #:[id number] : 1935 89 From: Kaden Herrera Attending [...] Celeste Gore RDCS, RVT 07/26/24 1001 Date _ Kaden Corcoran MD CC: Dr. Hayden Diaz, DO; Dr. Kam Ocampo Sr., DO; Dr. Neymar Cunningham MD ~ Date Dictated: 07/26/24823 Date Transcribed: 07/26/24 1001 Patient Care Assistant: Signed [facility] Work Phone: [phone] HH, Hemoglobin AND Hematocri ton 07-26-2024 Hematocrit (Bld) [Volume fraction] 29.3 % Low 37-47 [facility] Comment on above: Performed By: #### L 100.0600 ####[facility] [address] [place], [address] Hemoglobin (Bld) [Mass/Vol] 9.7 g/dL Low 12.0-15.0 [facility] Comment on above: Performed By: #### L 100.0600 ####[facility] [address] [place], [address] Hip Min 2 Views (Portable)on 07-26-2024 Hip Min 2 Views (Portable) Normal [facility] L499.0042on 07-26-2024 Trop T High Sen 27 ng/L High <=14 [facility] Comment on above: Performed By: #### L 499.0042 ####[facility] [address] [place], [address] L499.0043on 07-26-2024 Trop T High Sen 25 ng/L High <=14 [facility] Comment on above: Performed By: #### L 499.0043 ####[facility] [address] [place], [address] MR/POSTOP.ANEon 07-26-2024 MR/POSTOP.ANE Normal [facility] MR/[id number] 07-26-2024 MR/POSTOPAN2 Normal [facility] Operative Reporton Operative Report Normal [facility] TSH DL <= 0.005 mIU/L QnOrde red By: Rocky Sidhu on 07-26-2024 TSH Qn 2.060 uIU/mL 0.300-4.20 0 [facility] Thyroid Stim Hormone (TSH)on 07-26-2024 TSH 2.060 uIU/mL Normal 0.300-4.20 0 [facility] Comment on above: Performed By: #### L 501.9520 ####[facility] [address] [place], [place], [address] Troponin T.cardiac [Mass/vol ume] in Serum or Plasma by High sensitivity methodOrdered By: Hayden Diaz on 07-26-2024 Troponin T.cardiac High sensitivity method [Mass/Vol] 25 ng/L High <14 [facility] Troponin T.cardiac High sensitivity method [Mass/Vol] 27 ng/L High <14 [facility] Type AND Screenon 07-26-2024 Ab SCREEN GEL TNP Normal [facility] Comment on above: Order Comment: S Performed By: #### B TS, [id number] ####[facility] [address] [place], [place], [address] 12 Lead EKGon 07-25-2024 12 Lead EKG Normal [facility] Absolute lymphocyte countOrd ered By: Jacobo Moya on 07-25-2024 Lymphocytes Auto (Unsp spec) [#/Vol] 1.75 10*3/uL 0.83-4.51 [facility] Absolute neutrophil countOrd ered By: Jacobo Moya on 07-25-2024 Neutrophils (Bld) [#/Vol] 5.3 10*3/uL 2.0-7.7 [facility] Activated partial thrombopla stin time (aPTT) in platelet poor plasma by coagulation aOrdered By: Jacobo Moya on 07-25-2024 aPTT Coag (PPP) [Time] 27.1 s 24.1-36.2 [facility] Anion gap in Serum or Plasma Ordered By: Jacobo Moya on 07-25-2024 Anion gap [Moles/Vol] 9 mmol/L 5-15 [facility] Automated lymphocyte count a s percentage of total leukocytesOrdered By: Jacobo Moya on 07-25-2024 Lymphocytes/100 WBC Auto (Unsp spec) 22.9 % 19- [facility] BUN/creatinine ratioOrdered By: Jacobo Moya on 07-25-2024 Urea nitrogen/Creatinine [Mass ratio] 13.5 mg/mg - [facility] Basic Metabolic Profile (BMP )on 07-25-2024 BUN/CRE 13.5 RATIO Normal - [facility] Comment on above: Performed By: #### L 300.4310, L500.2500, L300.3900, L100.0100 ####[facility] [address] [place], [address] Calcium [Mass/Vol] 8.8 mg/dL Normal 7.6-11.0 [facility] Comment on above: Performed By: #### L 300.4310, L500.2500, L300.3900, L100.0100 ####[facility] [address] [place], [address] Chloride [Moles/Vol] 98 mmol/L Normal 98-108 [facility] Comment on above: Performed By: #### L 300.4310, L500.2500, L300.3900, L100.0100 ####[facility] [address] [place], [address] CO2 [Moles/Vol] 26.5 mmol/L Normal 21.0-32.0 [facility] Comment on above: Performed By: #### L 300.4310, L500.2500, L300.3900, L100.0100 ####[facility] [address] [place], [address] Creatinine [Mass/Vol] 0.92 mg/dL Normal 0.70-1.20 [facility] Comment on above: Performed By: #### L 300.4310, L500.2500, L300.3900, L100.0100 ####[facility] [address] [place], [address] GAP 9 Normal 5-15 [facility] Comment on above: Performed By: #### L 300.4310, L500.2500, L300.3900, L100.0100 ####[facility] [address] [place], [address] GFR/1.73 sq M.predicted among non-blacks MDRD (S/P/Bld) [Vol rate/Area] 60 mL/min/{1.73_m2} Normal >60 [facility] Comment on above: Result Comment: mL/m in/1.73m2 CKD-EPI Creatinine Equation (2020) Performed By: #### L 300.4310, L500.2500, L300.3900, L100.0100 ####[facility] [address] [place], [address] Glucose [Mass/Vol] 126 mg/dL High 70-99 [facility] Comment on above: Performed By: #### L 300.4310, L500.2500, L300.3900, L100.0100 ####[facility] [address] [place], [address] Potassium [Moles/Vol] 5.0 mmol/L Normal 3.3-5.1 [facility] Comment on above: Result Comment: Hemo lysis present, Results??could be affected.?? Performed By: #### L 300.4310, L500.2500, L300.3900, L100.0100 ####[facility] [address] [place], [address] Sodium [Moles/Vol] 134 mmol/L Normal 133-145 [facility] Comment on above: Performed By: #### L 300.4310, L500.2500, L300.3900, L100.0100 ####[facility] [address] [place], [address] Urea nitrogen [Mass/Vol] 13 mg/dL Normal 4-19 [facility] Comment on above: Performed By: #### L 300.4310, L500.2500, L300.3900, L100.0100 ####[facility] [address] [place], [address] Basophil percentageOrdered B y: Jacobo Mcgowanrenny on 07-25-2024 Basophils/100 WBC (Bld) 0.4 % 0-1 [facility] Bilirubin Test strip Ql (U)O rdered By: Jacobo Nita on 07-25-2024 Bilirubin Ql (U) Negative Negative [facility] CBC W/Diff, Automatedon 07-10 Absolute Lymph 1.75 X10 3/uL Normal 0.83-4.51 [facility] Comment on above: Performed By: #### L 300.4310, L500.2500, L300.3900, L100.0100 ####[facility] [address] [place], [address] Absolute Neut 5.3 X10 3/uL Normal 2.0-7.7 [facility] Comment on above: Performed By: #### L 300.4310, L500.2500, L300.3900, L100.0100 ####[facility] [address] [place], [address] Basophils/100 WBC (Bld) 0.4 % Normal 0-1 [facility] Comment on above: Performed By: #### L 300.4310, L500.2500, L300.3900, L100.0100 ####[facility] [address] [place], [address] Eosinophils/100 WBC (Bld) 0.9 % Normal 0-5 [facility] Comment on above: Performed By: #### L 300.4310, L500.2500, L300.3900, L100.0100 ####[facility] [address] [place], [address] Erythrocyte distribution width (RBC) [Ratio] 14.1 % Normal 11.6-14.6 [facility] Comment on above: Performed By: #### L 300.4310, L500.2500, L300.3900, L100.0100 ####[facility] [address] [place], [address] Hematocrit (Bld) [Volume fraction] 31.6 % Low 37-47 [facility] Comment on above: Performed By: #### L 300.4310, L500.2500, L300.3900, L100.0100 ####[facility] [address] [place], [address] Hemoglobin (Bld) [Mass/Vol] 10.7 g/dL Low 12.0-15.0 [facility] Comment on above: Performed By: #### L 300.4310, L500.2500, L300.3900, L100.0100 ####[facility] [address] [place], [address] IG% 0.400 Normal 0.0-0.9 [facility] Comment on above: Result Comment: IG% - Immature Granulocytes (promyelocytes, myelocytes andmetamyelocytes) > 1% indicates that a LEFT SHIFT is Present. Performed By: #### L 300.4310, L500.2500, L300.3900, L100.0100 ####[facility] [address] [place], [address] Lymphocytes/100 WBC (Bld) 22.9 % Normal 19-41 [facility] Comment on above: Performed By: #### L 300.4310, L500.2500, L300.3900, L100.0100 ####[facility] [address] [place], [address] MCH (RBC) [Entitic mass] 32.6 pg High 27.0-32.0 [facility] Comment on above: Performed By: #### L 300.4310, L500.2500, L300.3900, L100.0100 ####[facility] [address] [place], [address] MCHC (RBC) [Mass/Vol] 33.9 g/dL Normal 32-36 [facility] Comment on above: Performed By: #### L 300.4310, L500.2500, L300.3900, L100.0100 ####[facility] [address] [place], [address] MCV (RBC) [Entitic vol] 96.3 fL Normal 81-99 [facility] Comment on above: Performed By: #### L 300.4310, L500.2500, L300.3900, L100.0100 ####[facility] [address] [place], [address] Monocytes/100 WBC (Bld) 6.2 % Normal 0-10 [facility] Comment on above: Performed By: #### L 300.4310, L500.2500, L300.3900, L100.0100 ####[facility] [address] [place], [address] Neutrophils/100 WBC (Bld) 69.2 % Normal 47-70 [facility] Comment on above: Performed By: #### L 300.4310, L500.2500, L300.3900, L100.0100 ####[facility] [address] [place], [address] Nucleated RBC (Bld) [#/Vol] 0 10*3/uL Normal 0-5 [facility] Comment on above: Performed By: #### L 300.4310, L500.2500, L300.3900, L100.0100 ####[facility] [address] [place], [address] Platelet mean volume (Bld) [Entitic vol] 9.1 fL Normal 6.2-12.0 [facility] Comment on above: Performed By: #### L 300.4310, L500.2500, L300.3900, L100.0100 ####[facility] [address] [place], [address] Platelets (Bld) [#/Vol] 181 10*3/uL Normal 150-450 [facility] Comment on above: Performed By: #### L 300.4310, L500.2500, L300.3900, L100.0100 ####[facility] [address] [place], [address] RBC (Bld) [#/Vol] 3.28 10*6/uL Low 4.2-5.4 [facility] Comment on above: Performed By: #### L 300.4310, L500.2500, L300.3900, L100.0100 ####[facility] [address] [place], [address] RDW SD 49.4 fl High 35.1-43.9 [facility] Comment on above: Performed By: #### L 300.4310, L500.2500, L300.3900, L100.0100 ####[facility] [address] [place], [address] WBC (Bld) [#/Vol] 7.6 10*3/uL Normal 4.4-11.0 [facility] Comment on above: Performed By: #### L 300.4310, L500.2500, L300.3900, L100.0100 ####[facility] [address] [place], [address] Carbon dioxide, total [Moles /volume] in Central venous bloodOrdered By: Jacobo Moya on 07-25-2024 CO2 [Moles/Vol] 26.5 mmol/L 21.0-32.0 [facility] Chest 1 View (Portable)on Chest 1 View (Portable) Normal [facility] Chloride assayOrdered By: Timi Moya on 07-25-2024 Chloride [Moles/Vol] 98 mmol/L 98-108 [facility] Echo Completeon 07-25-2024 Echo Complete Normal [facility] Emergency Department Summary on 07-25-2024 Emergency Department Summary Normal [facility] Eosinophil percentageOrdered By: Jacobo Moya on 07-25-2024 Eosinophils/100 WBC (Bld) 0.9 % 0-5 [facility] Erythrocyte distribution wid th ratioOrdered By: Jacobo Moya on 07-25-2024 Erythrocyte distribution width (RBC) [Ratio] 14.1 % 11.6-14.6 [facility] Erythrocyte distribution wid th standard deviationOrdered By: Jacobo Moya on 07-25-2024 Erythrocyte distribution width (RBC) [Ratio] 49.4 fl High 35.1-43.9 [facility] Femur Min 2 Viewson 07-26-19 25 Femur Min 2 Views Normal [facility] Glomerular filtration rate ( GFR) estimation/1.73 sq m using serum, plasma, or whole bOrdered By: Jacobo Moya on 07-25-2024 GFR/1.73 sq M.predicted among non-blacks MDRD (S/P/Bld) [Vol rate/Area] 60 mL/min/{1.73_m2} >60 [facility] Comment on above: mL/min/1.73m2 CKD-EP I Creatinine Equation (2020) H AND P Exam - Hospitaliston 07-25-2024 H&P Exam - Hospitalist Normal [facility] HIP, UNI W/ Pelvis 2-3 Views on 07-25-2024 HIP, UNI W/ Pelvis 2-3 Views Normal [facility] Hematocrit Auto (Bld) [Volum e fraction]Ordered By: Jacobo Moya on 07-25-2024 Hematocrit (Bld) [Volume fraction] 31.6 % Low 37-47 [facility] Hemoglobin measurementOrdere d By: Jacobo Moya on 07-25-2024 Hemoglobin (Bld) [Mass/Vol] 10.7 g/dL Low 12.0-15.0 [facility] Immature granulocytes/100 WB C Auto (Bld)Ordered By: Jacobo Moya on 07-25-2024 Immature granulocytes/100 WBC (Bld) 0.400 % 0.0-0.9 [facility] Comment on above: IG% - Immature Granu locytes (promyelocytes, myelocytes and metamyelocytes) > 1% indicates that a LEFT SHIFT is Present. International normalized rat io (INR) calculationOrdered By: Jacobo Moya on 07-25-2024 INR Coag (Bld) [Relative time] 1.0 {INR} [facility] Ketones Test strip Ql (U)Ord ered By: Jacobo Moya on 07-25-2024 Ketones Ql (U) Negative Negative [facility] L501.4021on 07-25-2024 Trop T High Sen 24 ng/L High <=14 [facility] Comment on above: Performed By: #### L 501.4021 ####[facility] [address] [place], [place], [address] L503.7505on 07-25-2024 Natriuretic peptide B (Bld) [Mass/Vol] 538 pg/mL Normal <=1800 [facility] Comment on above: Result Comment: Hear t Failure Unlikely: < 300 pg/mLHeart Failure Likely< 50 Years: > 450 pg/mL50-75 Years: > 900 pg/mL>75 Years: > 1800 pg/mL Performed By: #### L 503.1641 ####[facility] [address] [place], [address] MCV (mean corpuscular volume ) determinationOrdered By: Jacobo Moya on 07-25-2024 MCV (RBC) [Entitic vol] 96.3 fL 81-99 [facility] Mean corpuscular hemoglobin (MCH) determinationOrdered By: Jacobo Moya on 07-25-2024 MCH (RBC) [Entitic mass] 32.6 pg High 27.0-32.0 [facility] Mean corpuscular hemoglobin concentration (MCHC) determinationOrdered By: Jacobo Moya on 07-25-2024 MCHC (RBC) [Mass/Vol] 33.9 g/dL 32-36 [facility] Mean platelet volume determi nationOrdered By: Jacobo Moya on 07-25-2024 Platelet mean volume (Bld) [Entitic vol] 9.1 fL 6.2-12.0 [facility] Microscopic analysis of urin e for red blood cells (RBC)Ordered By: Jacobo Moya on 07-25-2024 Microscopic analysis of urine for red blood cells (RBC) 0-5 SEEN /hpf 0-5 [facility] Monocyte percentageOrdered B y: Jacobo Moya on 07-25-2024 Monocytes/100 WBC (Bld) 6.2 % 0-10 [facility] Mucus LM Ql (Urine sed)Order ed By: Jacobo Moya on 07-25-2024 Mucus Ql (Urine sed) 0 SEEN /hpf [facility] Natriuretic peptide.B prohor ana N-Terminal [Mass/volume] in Serum or PlasmaOrdered By: Hayden Diaz on 07-25-2024 Natriuretic peptide.B prohormone N-Terminal [Mass/Vol] 538 pg/mL <1800 [facility] Comment on above: Heart Failure Unlike ly: < 300 pg/mLHeart Failure Likely< 50 Years: > 450 pg/mL50-75 Years: > 900 pg/mL>75 Years: > 1800 pg/mL Neutrophil percentageOrdered By: Jacobo Moya on 07-25-2024 Neutrophils/100 WBC (Bld) 69.2 % 47-70 [facility] Nitrite Test strip Ql (U)Ord ered By: Jacobo Moya on 07-25-2024 Nitrite Ql (U) Negative Negative [facility] Nucleated red blood cell per centageOrdered By: Jacobo Moya on 07-25-2024 Nucleated RBC/100 WBC (Bld) [Ratio] 0 % 0-5 [facility] Partial Thromboplast Timeon 07-25-2024 aPTT Coag (Bld) [Time] 27.1 s Normal 24.1-36.2 [facility] Comment on above: Performed By: #### L 300.4310, L500.2500, L300.3900, L100.0100 ####[facility] [address] [place], [place], [id number] Platelet countOrdered By: Timi Moya on 07-25-2024 Platelets (Bld) [#/Vol] 181 10*3/uL 150-450 [facility] Potassium measurement (mass/ volume)Ordered By: Jacobo Moya on 07-25-2024 Potassium (Unsp spec) [Mass/Vol] 5.0 mmol/L 3.3-5.1 [facility] Comment on above: Hemolysis present, R esults could be affected. Protein Test strip Ql (U)Ord ered By: Jacobo Moya on 07-25-2024 Protein Ql (U) 30 mg/dl High Negative [facility] Prothrombin Time w/INRon INR Coag (PPP) [Relative time] 1.0 {INR} Normal [facility] Comment on above: Performed By: #### L 300.4310, L500.2500, L300.3900, L100.0100 ####[facility] [address] [place], [place], [address] PT Coag (PPP) [Time] 13.0 s Normal 11.7-14.9 [facility] Comment on above: Performed By: #### L 300.4310, L500.2500, L300.3900, L100.0100 ####[facility] [address] [place], [address] Prothrombin timeOrdered By: Jacobo Moya on 07-25-2024 PT Coag (PPP) [Time] 13.0 s 11.7-14.9 [facility] RBC Auto (Bld) [#/Vol]Ordere d By: Jacobo Moya on 07-25-2024 RBC (Bld) [#/Vol] 3.28 10*6/uL Low 4.2-5.4 [facility] Serum creatinine measurement (mass/volume)Ordered By: Jacobo Moya on 07-25-2024 Creatinine [Mass/Vol] 0.92 mg/dL 0.70-1.20 [facility] Serum glucose measurement (m ass/volume)Ordered By: Jacobo Moya on 07-25-2024 Glucose [Mass/Vol] 126 mg/dL High 70-99 [facility] Serum or plasma calcium светлана urement (mass/volume)Ordered By: Jacobo Moya on 07-25-2024 Calcium [Mass/Vol] 8.8 mg/dL 7.6-11.0 [facility] Serum or plasma urea nitroge n measurement (mass/volume)Ordered By: Jacobo Moya on 07-25-2024 Urea nitrogen [Mass/Vol] 13 mg/dL 4-19 [facility] Sodium levelOrdered By: Jacobo Moya on 07-25-2024 Sodium [Moles/Vol] 134 mmol/L 133-145 [facility] Squamous epithelial cells de tection in urine sediment by light microscopyOrdered By: Jacobo Moya on 07-25-2024 Epithelial cells.squamous LM Ql (Urine sed) 0-5 SEEN /hpf 5-10 [facility] Transitional cells detection in urine sediment by light microscopyOrdered By: Jacobo Moya on 07-25-2024 Transitional cells LM Ql (Urine sed) 0-5 SEEN /hpf 0-5 [facility] Troponin T.cardiac [Mass/vol ume] in Serum or Plasma by High sensitivity methodOrdered By: Hayden Diaz on 07-25-2024 Troponin T.cardiac High sensitivity method [Mass/Vol] 24 ng/L High <14 [facility] Urinalysis, Completeon 07-25 EPI,SQUAMOUS 0-5 SEEN Normal 5-10 [facility] Comment on above: Order Comment: CLEAN CATCH Performed By: #### L 400.0001 ####[facility] [address] [place], [place], [id number] EPI,TRANSITION 0-5 SEEN Normal 0-5 [facility] Comment on above: Order Comment: CLEAN CATCH Performed By: #### L 400.0001 ####[facility] [address] [place], [place], [id number] RBC 0-5 SEEN Normal 0-5 [facility] Comment on above: Order Comment: CLEAN CATCH Performed By: #### L 400.0001 ####[facility] [address] [place], [place], [id number] WBC 0-5 SEEN Normal 0-5 [facility] Comment on above: Order Comment: CLEAN CATCH Performed By: #### L 400.0001 ####[facility] [address] [place], [address] BACTERIA 0 SEEN Normal None Seen [facility] Comment on above: Order Comment: CLEAN CATCH Performed By: #### L 400.0001 ####[facility] [address] [place], [address] Mucus Ql (Urine sed) 0 SEEN Normal [facility] Comment on above: Order Comment: CLEAN CATCH Performed By: #### L 400.0001 ####[facility] [address] [place], [place], [id number] Urine clarityOrdered By: Geovanna Moya on 07-25-2024 Clarity (U) Clear Clear [facility] Urine color determinationOrd ered By: Jacobo Moya on 07-25-2024 Color (U) Straw Yellow [facility] Urine glucose detectionOrder ed By: Jacobo Moya on 07-25-2024 Glucose Ql (U) Normal mg/dl Normal [facility] Urine leukocyte esterase det ection by dipstickOrdered By: Jacobo Moya on 07-25-2024 Leukocyte esterase Test strip Ql (U) Negative Negative [facility] Urine pHOrdered By: Jacobo dunham on 07-25-2024 pH (U) 8.0 [pH] 5.0 - 8.0 [facility] Urine sediment bacteria coun t by microscopy (number/high power field)Ordered By: Jacobo Moya on 07-25-2024 Bacteria LM.HPF (Urine sed) [#/Area] 0 /[HPF] None Seen [facility] Urine specific gravity measu rementOrdered By: Jacobo Moya on 07-25-2024 Specific gravity (U) [Rel density] 1.010 1.002-1.03 0 [facility] Urine urobilinogen measureme ntOrdered By: Jacobo Moya on 07-25-2024 Urobilinogen Ql (U) Normal mg/dl Normal [facility] White blood cell (WBC) count Ordered By: Jacobo Moya on 07-25-2024 WBC (Bld) [#/Vol] 7.6 10*3/uL 4.4-11.0 [facility] White blood cell countOrdere d By: Jacobo Moya on 07-25-2024 White blood cell count 0-5 SEEN /hpf 0-5 [facility] Anion gap in Serum or Plasma Ordered By: Kam Ocampo on 04-14-2024 Anion gap [Moles/Vol] 10 mmol/L 5-15 [facility] BUN/creatinine ratioOrdered By: Kam Ocampo on 04-14-2024 Urea nitrogen/Creatinine [Mass ratio] 12.4 mg/mg 10-20 [facility] Bilirubin, totalOrdered By: Kam Ocampo on 04-14-2024 Bilirubin [Mass/Vol] 0.38 mg/dL 0.00-1.30 [facility] CBC-Complete Blood Cnt No Di ffon 04-14-2024 Erythrocyte distribution width (RBC) [Ratio] 13.7 % Normal 11.6-14.6 [facility] Comment on above: Order Comment: 301.2 Performed By: #### L 501.080 #### [facility] [address] [place], [address] Order Comment: 301.2 Performed By: #### L 500.4050, L100.0500 ####[facility] [address] [place], [address] Hematocrit (Bld) [Volume fraction] 30.3 % Low 37-47 [facility] Comment on above: Order Comment: 301.2 Performed By: #### L 501.080 #### [facility] [address] [place], [address] Order Comment: 301.2 Performed By: #### L 500.4050, L100.0500 ####[facility] [address] [place], [address] Hemoglobin (Bld) [Mass/Vol] 10.2 g/dL Low 12.0-15.0 [facility] Comment on above: Order Comment: 301.2 Performed By: #### L 501.080 #### [facility] [address] [place], [address] Order Comment: 301.2 Performed By: #### L 500.4050, L100.0500 ####[facility] [address] [place], [address] MCH (RBC) [Entitic mass] 32.4 pg High 27.0-32.0 [facility] Comment on above: Order Comment: 301.2 Performed By: #### L 501.080 #### [facility] [address] [place], [address] Order Comment: 301.2 Performed By: #### L 500.4050, L100.0500 ####[facility] [address] [place], [address] MCHC (RBC) [Mass/Vol] 33.7 g/dL Normal 32-36 [facility] Comment on above: Order Comment: 301.2 Performed By: #### L 501.080 #### [facility] [address] [place], [address] Order Comment: 301.2 Performed By: #### L 500.4050, L100.0500 ####[facility] [address] [place], [address] MCV (RBC) [Entitic vol] 96.2 fL Normal 81-99 [facility] Comment on above: Order Comment: 301.2 Performed By: #### L 501.080 #### [facility] [address] [place], [address] Order Comment: 301.2 Performed By: #### L 500.4050, L100.0500 ####[facility] [address] [place], [address] Platelet mean volume (Bld) [Entitic vol] 9.3 fL Normal 6.2-12.0 [facility] Comment on above: Order Comment: 301.2 Performed By: #### L 501.080 #### [facility] [address] [place], [address] Order Comment: 301.2 Performed By: #### L 500.4050, L100.0500 ####[facility] [address] [place], [address] Platelets (Bld) [#/Vol] 170 10*3/uL Normal 150-450 [facility] Comment on above: Order Comment: 301.2 Performed By: #### L 501.080 #### [facility] [address] [place], [address] Order Comment: 301.2 Performed By: #### L 500.4050, L100.0500 ####[facility] [address] [place], [address] RBC (Bld) [#/Vol] 3.15 10*6/uL Low 4.2-5.4 [facility] Comment on above: Order Comment: 301.2 Performed By: #### L 501.080 #### [facility] [address] [place], [address] Order Comment: 301.2 Performed By: #### L 500.4050, L100.0500 ####[facility] [address] [place], [address] RDW SD 48.8 fl High 35.1-43.9 [facility] Comment on above: Order Comment: 301.2 Performed By: #### L 501.080 #### [facility] [address] [place], [address] Order Comment: 301.2 Performed By: #### L 500.4050, L100.0500 ####[facility] [address] [place], [address] WBC (Bld) [#/Vol] 4.5 10*3/uL Normal 4.4-11.0 [facility] Comment on above: Order Comment: 301.2 Performed By: #### L 501.080 #### [facility] [address] [place], [address] Order Comment: 301.2 Performed By: #### L 500.4050, L100.0500 ####[facility] [address] [place], [address] Carbon dioxide, total [Moles /volume] in Central venous bloodOrdered By: Kam Ocampo on 04-14-2024 CO2 [Moles/Vol] 24.5 mmol/L 21.0-32.0 [facility] Chloride assayOrdered By: Dugan on 04-14-2024 Chloride [Moles/Vol] 102 mmol/L 98-108 [facility] Comprehensive Metabolic Prof ilon 04-14-2024 Albumin [Mass/Vol] 3.2 g/dL Low 3.4-4.8 [facility] Comment on above: Order Comment: 301.2 Performed By: #### L 300.3900, L100.0100, L500.2500 #### [facility] [address] [place], [address] Order Comment: 301.2 Performed By: #### L 500.4050, L100.0500 ####[facility] [address] [place], [address] Albumin/Globulin [Mass ratio] 1.2 {ratio} Normal 0.9-2.4 [facility] Comment on above: Order Comment: 301.2 Performed By: #### L 300.3900, L100.0100, L500.2500 #### [facility] [address] [place], [address] Order Comment: 301.2 Performed By: #### L 500.4050, L100.0500 ####[facility] [address] [place], [address] ALK PHOS 53 U/L Normal 35-104 [facility] Comment on above: Order Comment: 301.2 Performed By: #### L 300.3900, L100.0100, L500.2500 #### [facility] [address] [place], [address] Order Comment: 301.2 Performed By: #### L 500.4050, L100.0500 ####[facility] [address] [place], [address] ALT [Catalytic activity/Vol] 14 U/L Normal <=34 [facility] Comment on above: Order Comment: 301.2 Performed By: #### L 300.3900, L100.0100, L500.2500 #### [facility] [address] [place], [address] Order Comment: 301.2 Performed By: #### L 500.4050, L100.0500 ####[facility] [address] [place], [address] AST [Catalytic activity/Vol] 21 U/L Normal <=31 [facility] Comment on above: Order Comment: 301.2 Performed By: #### L 300.3900, L100.0100, L500.2500 #### [facility] [address] [place], [address] Order Comment: 301.2 Performed By: #### L 500.4050, L100.0500 ####[facility] [address] [place], [address] Bilirubin [Mass/Vol] 0.38 mg/dL Normal 0.00-1.30 [facility] Comment on above: Order Comment: 301.2 Performed By: #### L 300.3900, L100.0100, L500.2500 #### [facility] [address] [place], [address] Order Comment: 301.2 Performed By: #### L 500.4050, L100.0500 ####[facility] [address] [place], [address] BUN/CRE 12.4 RATIO Normal 10-20 [facility] Comment on above: Order Comment: 301.2 Performed By: #### L 300.3900, L100.0100, L500.2500 #### [facility] [address] [place], [address] Order Comment: 301.2 Performed By: #### L 500.4050, L100.0500 ####[facility] [address] [place], [address] Calcium [Mass/Vol] 9.0 mg/dL Normal 7.6-11.0 [facility] Comment on above: Order Comment: 301.2 Performed By: #### L 300.3900, L100.0100, L500.2500 #### [facility] [address] [place], [address] Order Comment: 301.2 Performed By: #### L 500.4050, L100.0500 ####[facility] [address] [place], [address] Chloride [Moles/Vol] 102 mmol/L Normal 98-108 [facility] Comment on above: Order Comment: 301.2 Performed By: #### L 300.3900, L100.0100, L500.2500 #### [facility] [address] [place], [address] Order Comment: 301.2 Performed By: #### L 500.4050, L100.0500 ####[facility] [address] [place], [address] CO2 [Moles/Vol] 24.5 mmol/L Normal 21.0-32.0 [facility] Comment on above: Order Comment: 301.2 Performed By: #### L 300.3900, L100.0100, L500.2500 #### [facility] [address] [place], [address] Order Comment: 301.2 Performed By: #### L 500.4050, L100.0500 ####[facility] [address] [place], [address] Creatinine [Mass/Vol] 0.90 mg/dL Normal 0.70-1.20 [facility] Comment on above: Order Comment: 301.2 Performed By: #### L 300.3900, L100.0100, L500.2500 #### [facility] [address] [place], [address] Order Comment: 301.2 Performed By: #### L 500.4050, L100.0500 ####[facility] [address] [place], [address] GAP 10 Normal 5-15 [facility] Comment on above: Order Comment: 301.2 Performed By: #### L 300.3900, L100.0100, L500.2500 #### [facility] [address] [place], [address] Order Comment: 301.2 Performed By: #### L 500.4050, L100.0500 ####[facility] [address] [place], [address] GFR/1.73 sq M.predicted among non-blacks MDRD (S/P/Bld) [Vol rate/Area] 61 mL/min/{1.73_m2} Normal >60 [facility] Comment on above: Order Comment: 301.2 Result Comment: mL/m in/1.73m2 CKD-EPI Creatinine Equation (2020) Performed By: #### L 300.3900, L100.0100, L500.2500 #### [facility] [address] [place], [address] Order Comment: 301.2 Result Comment: mL/m in/1.73m2 CKD-EPI Creatinine Equation (2020) Performed By: #### L 500.4050, L100.0500 ####[facility] [address] [place], [address] Globulin (S) [Mass/Vol] 2.7 g/dL Normal 2.2-4.2 [facility] Comment on above: Order Comment: 301.2 Performed By: #### L 300.3900, L100.0100, L500.2500 #### [facility] [address] [place], [address] Order Comment: 301.2 Performed By: #### L 500.4050, L100.0500 ####[facility] [address] [place], [address] Glucose [Mass/Vol] 80 mg/dL Normal 70-99 [facility] Comment on above: Order Comment: 301.2 Performed By: #### L 300.3900, L100.0100, L500.2500 #### [facility] [address] [place], [address] Order Comment: 301.2 Performed By: #### L 500.4050, L100.0500 ####[facility] [address] [place], [address] Potassium [Moles/Vol] 4.3 mmol/L Normal 3.3-5.1 [facility] Comment on above: Order Comment: 301.2 Performed By: #### L 300.3900, L100.0100, L500.2500 #### [facility] [address] [place], [address] Order Comment: 301.2 Performed By: #### L 500.4050, L100.0500 ####[facility] [address] [place], [address] Sodium [Moles/Vol] 137 mmol/L Normal 133-145 [facility] Comment on above: Order Comment: 301.2 Performed By: #### L 300.3900, L100.0100, L500.2500 #### [facility] [address] [place], [address] Order Comment: 301.2 Performed By: #### L 500.4050, L100.0500 ####[facility] [address] [place], [address] T PROT 5.9 g/dL Normal 5.9-8.4 [facility] Comment on above: Order Comment: 301.2 Performed By: #### L 300.3900, L100.0100, L500.2500 #### [facility] [address] [place], [address] Order Comment: 301.2 Performed By: #### L 500.4050, L100.0500 ####[facility] [address] [place], [address] Urea nitrogen [Mass/Vol] 11 mg/dL Normal 4-19 [facility] Comment on above: Order Comment: 301.2 Performed By: #### L 300.3900, L100.0100, L500.2500 #### [facility] [address] [place], [address] Order Comment: 301.2 Performed By: #### L 500.4050, L100.0500 ####[place] [facility] [address] [place], [address] Erythrocyte distribution wid th (RBC) [Ratio]Ordered By: Kam Ocampo on 04-14-2024 Erythrocyte distribution width (RBC) [Entitic vol] 48.8 fL High 35.1-43.9 [facility] Erythrocyte distribution wid th ratioOrdered By: Kam Ocampo on 04-14-2024 Erythrocyte distribution width (RBC) [Ratio] 13.7 % 11.6-14.6 [facility] Erythrocyte distribution wid th standard deviationOrdered By: Kam Ocampo on 04-14-2024 Erythrocyte distribution width (RBC) [Ratio] 48.8 fl High 35.1-43.9 [facility] GFR/1.73 sq M.predicted leif g non-blacks MDRD (S/P/Bld) [Vol rate/Area]Ordered By: Kam Ocampo on 04-14-2024 Estimated GFR (MDRD) Non-Af Amer 61 >60 [facility] Comment on above: mL/min/1.73m2 CKD-EP I Creatinine Equation (2020) Glomerular filtration rate ( GFR) estimation/1.73 sq m using serum, plasma, or whole bOrdered By: Kam Ocampo on 04-14-2024 GFR/1.73 sq M.predicted among non-blacks MDRD (S/P/Bld) [Vol rate/Area] 61 mL/min/{1.73_m2} >60 [facility] Comment on above: mL/min/1.73m2 CKD-EP I Creatinine Equation (2020) Hematocrit Auto (Bld) [Volum e fraction]Ordered By: Kam Ocampo on 04-14-2024 Hematocrit (Bld) [Volume fraction] 30.3 % Low 37-47 [facility] Hemoglobin measurementOrdere d By: Kam Ocampo on 04-14-2024 Hemoglobin (Bld) [Mass/Vol] 10.2 g/dL Low 12.0-15.0 [facility] - Chemistry and C hemistry - challengeOrdered By: Kam Ocampo on 04-14-2024 AST [Catalytic activity/Vol] 21 U/L <32 [facility] MCV (mean corpuscular volume ) determinationOrdered By: Kam Ocampo on 04-14-2024 MCV (RBC) [Entitic vol] 96.2 fL 81-99 [facility] Mean corpuscular hemoglobin (MCH) determinationOrdered By: Kam Ocampo on 04-14-2024 MCH (RBC) [Entitic mass] 32.4 pg High 27.0-32.0 [facility] Mean corpuscular hemoglobin concentration (MCHC) determinationOrdered By: Kam Ocampo on 04-14-2024 MCHC (RBC) [Mass/Vol] 33.7 g/dL 32-36 [facility] Mean platelet volume determi nationOrdered By: Kam Ocampo on 04-14-2024 Platelet mean volume (Bld) [Entitic vol] 9.3 fL 6.2-12.0 [facility] Platelet countOrdered By: Dugan on 04-14-2024 Platelets (Bld) [#/Vol] 170 10*3/uL 150-450 [facility] Potassium (Unsp spec) [Mass/ Vol]Ordered By: Kam Ocampo on 04-14-2024 Potassium [Moles/Vol] 4.3 mmol/L 3.3-5.1 [facility] Potassium measurement (mass/ volume)Ordered By: Kam Ocampo on 04-14-2024 Potassium (Unsp spec) [Mass/Vol] 4.3 mmol/L 3.3-5.1 [facility] RBC Auto (Bld) [#/Vol]Ordere d By: Kam Ocampo on 04-14-2024 RBC (Bld) [#/Vol] 3.15 10*6/uL Low 4.2-5.4 [facility] Serum creatinine measurement (mass/volume)Ordered By: Kam Ocampo on 04-14-2024 Creatinine [Mass/Vol] 0.90 mg/dL 0.70-1.20 [facility] Serum globulin measurementOr dered By: Kam Ocampo on 04-14-2024 Globulin (S) [Mass/Vol] 2.7 g/dL 2.2-4.2 [facility] Serum glucose measurement (m ass/volume)Ordered By: Kam Ocampo on 04-14-2024 Glucose [Mass/Vol] 80 mg/dL 70-99 [facility] Serum or plasma alanine browne otransferase (ALT) measurementOrdered By: Kam Ocampo on 04-14-2024 ALT [Catalytic activity/Vol] 14 U/L <35 [facility] Serum or plasma albumin светлана urement (mass/volume)Ordered By: Kam Ocampo on 04-14-2024 Albumin [Mass/Vol] 3.2 g/dL Low 3.4-4.8 [facility] Serum or plasma albumin/glob ulin mass ratioOrdered By: Kam Ocampo on 04-14-2024 Albumin/Globulin [Mass ratio] 1.2 {ratio} 0.9-2.4 [facility] Serum or plasma alkaline noy sphatase measurementOrdered By: Kam Ocampo on 04-14-2024 ALP [Catalytic activity/Vol] 53 U/L 35-104 [facility] Serum or plasma calcium светлана urement (mass/volume)Ordered By: Kam Ocampo on 04-14-2024 Calcium [Mass/Vol] 9.0 mg/dL 7.6-11.0 [facility] Serum or plasma urea nitroge n measurement (mass/volume)Ordered By: Kam Ocampo on 04-14-2024 Urea nitrogen [Mass/Vol] 11 mg/dL 4-19 [facility] Sodium levelOrdered By: Kam Ocampo on 04-14-2024 Sodium [Moles/Vol] 137 mmol/L 133-145 [facility] Total proteinOrdered By: Aline Ocampo on 04-14-2024 Protein [Mass/Vol] 5.9 g/dL 5.9-8.4 [facility] White blood cell (WBC) count Ordered By: Kam Ocampo on 04-14-2024 WBC (Bld) [#/Vol] 4.5 10*3/uL 4.4-11.0 [facility] Absolute neutrophil countOrd ered By: Kam Ocampo on 02-09-2024 Neutrophils (Bld) [#/Vol] 3.2 10*3/uL 2.0-7.7 [facility] Basic Metabolic Profile (BMP )on 02-09-2024 BUN/CRE 18.4 RATIO Normal 10-20 [facility] Comment on above: Order Comment: 301.2 Performed By: #### L 500.2500, L100.0500 #### [facility] [address] [place], [address] Order Comment: 301.2 Performed By: #### L 500.2500, L100.0100 ####[facility] [address] [place], [address] CA,Total 9.0 mg/dL Normal 8.5-10.1 [facility] Comment on above: Order Comment: 301.2 Performed By: #### L 500.2500, L100.0500 #### [facility] [address] [place], [address] Order Comment: 301.2 Performed By: #### L 500.2500, L100.0100 ####[facility] [address] [place], [address] Chloride [Moles/Vol] 105 mmol/L Normal 98-107 [facility] Comment on above: Order Comment: 301.2 Performed By: #### L 500.2500, L100.0500 #### [facility] [address] [place], [address] Order Comment: 301.2 Performed By: #### L 500.2500, L100.0100 ####[facility] [address] [place], [address] CO2 [Moles/Vol] 28.0 mmol/L Normal 21.0-32.0 [facility] Comment on above: Order Comment: 301.2 Performed By: #### L 500.2500, L100.0500 #### [facility] [address] [place], [address] Order Comment: 301.2 Performed By: #### L 500.2500, L100.0100 ####[facility] [address] [place], [address] Creatinine [Mass/Vol] 0.98 mg/dL Normal 0.55-1.02 [facility] Comment on above: Order Comment: 301.2 Result Comment: The validity of the calculated GFR GFRAA in patients over 70 years has not been determined. Clinical correlation is essential. Performed By: #### L 500.2500, L100.0500 #### [facility] [address] [place], [address] Order Comment: 301.2 Result Comment: The validity of the calculated GFR GFRAA in patients over70 years has not been determined. Clinical correlation isessential. Performed By: #### L 500.2500, L100.0100 ####[facility] [address] [place], [address] EST GFR - AA 69 mL/min Normal >60 [facility] Comment on above: Order Comment: 301.2 Result Comment: Afri can [place] GFR Calc Performed By: #### L 500.2500, L100.0500 #### [facility] [address] [place], [address] Order Comment: 301.2 Result Comment: Afri can [place] GFR Calc Performed By: #### L 500.2500, L100.0100 ####[facility] [address] [place], [address] GAP 5 Normal 5-15 [facility] Comment on above: Order Comment: 301.2 Performed By: #### L 500.2500, L100.0500 #### [facility] [address] [place], [address] Order Comment: 301.2 Performed By: #### L 500.2500, L100.0100 ####[facility] [address] [place], [address] GFR/1.73 sq M.predicted among non-blacks MDRD (S/P/Bld) [Vol rate/Area] 57 mL/min/{1.73_m2} Low >60 [facility] Comment on above: Order Comment: 301.2 Result Comment: Non- GFR Calc Performed By: #### L 500.2500, L100.0500 #### [facility] [address] [place], [address] Order Comment: 301.2 Result Comment: Non- GFR Calc Performed By: #### L 500.2500, L100.0100 ####[facility] [address] [place], [address] Glucose [Mass/Vol] 88 mg/dL Normal 74-106 [facility] Comment on above: Order Comment: 301.2 Performed By: #### L 500.2500, L100.0500 #### [facility] [address] [place], [address] Order Comment: 301.2 Performed By: #### L 500.2500, L100.0100 ####[facility] [address] [place], [address] Potassium [Moles/Vol] 4.2 mmol/L Normal 3.5-5.1 [facility] Comment on above: Order Comment: 301.2 Performed By: #### L 500.2500, L100.0500 #### [facility] [address] [place], [address] Order Comment: 301.2 Performed By: #### L 500.2500, L100.0100 ####[facility] [address] [place], [address] Sodium [Moles/Vol] 138 mmol/L Normal 136-145 [facility] Comment on above: Order Comment: 301.2 Performed By: #### L 500.2500, L100.0500 #### [facility] [address] [place], [address] Order Comment: 301.2 Performed By: #### L 500.2500, L100.0100 ####[facility] [address] [place], [address] Urea nitrogen [Mass/Vol] 18 mg/dL Normal 7-18 [facility] Comment on above: Order Comment: 301.2 Performed By: #### L 500.2500, L100.0500 #### [facility] [address] [place], [address] Order Comment: 301.2 Performed By: #### L 500.2500, L100.0100 ####[facility] [address] [place], [address] Basophil percentageOrdered B y: Kam Ocampo on 02-09-2024 Basophils/100 WBC (Bld) 0.2 % 0-1 [facility] Blood urea nitrogen (BUN)/cr eatinine ratioOrdered By: Kam Ocampo on 02-09-2024 Urea nitrogen/Creatinine [Mass ratio] 18.4 mg/mg 10-20 [facility] CBC W/Diff, Automatedon - Absolute Lymph 1.89 X10 3/uL Normal 0.83-4.51 [facility] Comment on above: Order Comment: 301.2 Performed By: #### L 500.2500, L100.0500 #### [facility] [address] [place], [address] Order Comment: 301.2 Performed By: #### L 500.2500, L100.0100 ####[facility] [address] [place], [address] Absolute Neut 3.2 X10 3/uL Normal 2.0-7.7 [facility] Comment on above: Order Comment: 301.2 Performed By: #### L 500.2500, L100.0500 #### [facility] [address] [place], [address] Order Comment: 301.2 Performed By: #### L 500.2500, L100.0100 ####[facility] [address] [place], [address] Basophils/100 WBC (Bld) 0.2 % Normal 0-1 [facility] Comment on above: Order Comment: 301.2 Performed By: #### L 500.2500, L100.0500 #### [facility] [address] [place], [address] Order Comment: 301.2 Performed By: #### L 500.2500, L100.0100 ####[facility] [address] [place], [address] Eosinophils/100 WBC (Bld) 0.2 % Normal 0-5 [facility] Comment on above: Order Comment: 301.2 Performed By: #### L 500.2500, L100.0500 #### [facility] [address] [place], [address] Order Comment: 301.2 Performed By: #### L 500.2500, L100.0100 ####[facility] [address] [place], [address] Erythrocyte distribution width (RBC) [Ratio] 13.9 % Normal 11.6-14.6 [facility] Comment on above: Order Comment: 301.2 Performed By: #### L 500.2500, L100.0500 #### [facility] [address] [place], [address] Order Comment: 301.2 Performed By: #### L 500.2500, L100.0100 ####[facility] [address] [place], [address] Hematocrit (Bld) [Volume fraction] 30.0 % Low 37-47 [facility] Comment on above: Order Comment: 301.2 Performed By: #### L 500.2500, L100.0500 #### [facility] [address] [place], [place], [facility] Order Comment: 301.2 Performed By: #### L 500.2500, L100.0100 ####[facility] [address] [place], [address] Hemoglobin (Bld) [Mass/Vol] 10.0 g/dL Low 12.0-15.0 [facility] Comment on above: Order Comment: 301.2 Performed By: #### L 500.2500, L100.0500 #### [facility] [address] [place], [place], [facility] Order Comment: 301.2 Performed By: #### L 500.2500, L100.0100 ####[facility] [address] [place], [address] IG% 0.400 Normal 0.0-0.9 [facility] Comment on above: Order Comment: 301.2 Result Comment: IG% - Immature Granulocytes (promyelocytes, myelocytes and metamyelocytes) > 1% indicates that a LEFT SHIFT is Present. Performed By: #### L 500.2500, L100.0500 #### [facility] [address] [place], [place], [facility] Order Comment: 301.2 Result Comment: IG% - Immature Granulocytes (promyelocytes, myelocytes andmetamyelocytes) > 1% indicates that a LEFT SHIFT is Present. Performed By: #### L 500.2500, L100.0100 ####[facility] [address] [place], [place], [phone] Lymphocytes/100 WBC (Bld) 33.9 % Normal 19-41 [facility] Comment on above: Order Comment: 301.2 Performed By: #### L 500.2500, L100.0500 #### [facility] [address] [place], [address] Order Comment: 301.2 Performed By: #### L 500.2500, L100.0100 ####[facility] [address] [place], [address] MCH (RBC) [Entitic mass] 32.3 pg High 27.0-32.0 [facility] Comment on above: Order Comment: 301.2 Performed By: #### L 500.2500, L100.0500 #### [facility] [address] [place], [address] Order Comment: 301.2 Performed By: #### L 500.2500, L100.0100 ####[facility] [address] [place], [address] MCHC (RBC) [Mass/Vol] 33.3 g/dL Normal 32-36 [facility] Comment on above: Order Comment: 301.2 Performed By: #### L 500.2500, L100.0500 #### [facility] [address] [place], [address] Order Comment: 301.2 Performed By: #### L 500.2500, L100.0100 ####[facility] [address] [place], [address] MCV (RBC) [Entitic vol] 96.8 fL Normal 81-99 [facility] Comment on above: Order Comment: 301.2 Performed By: #### L 500.2500, L100.0500 #### [facility] [address] [place], [address] Order Comment: 301.2 Performed By: #### L 500.2500, L100.0100 ####[facility] [address] [place], [address] Monocytes/100 WBC (Bld) 8.8 % Normal 0-10 [facility] Comment on above: Order Comment: 301.2 Performed By: #### L 500.2500, L100.0500 #### [facility] [address] [place], [address] Order Comment: 301.2 Performed By: #### L 500.2500, L100.0100 ####[facility] [address] [place], [address] Neutrophils/100 WBC (Bld) 56.5 % Normal 47-70 [facility] Comment on above: Order Comment: 301.2 Performed By: #### L 500.2500, L100.0500 #### [facility] [address] [place], [address] Order Comment: 301.2 Performed By: #### L 500.2500, L100.0100 ####[facility] [address] [place], [address] Nucleated RBC (Bld) [#/Vol] 0 10*3/uL Normal 0-5 [facility] Comment on above: Order Comment: 301.2 Performed By: #### L 500.2500, L100.0500 #### [facility] [address] [place], [address] Order Comment: 301.2 Performed By: #### L 500.2500, L100.0100 ####[facility] [address] [place], [address] Platelet mean volume (Bld) [Entitic vol] 9.5 fL Normal 6.2-12.0 [facility] Comment on above: Order Comment: 301.2 Performed By: #### L 500.2500, L100.0500 #### [facility] [address] [place], [address] Order Comment: 301.2 Performed By: #### L 500.2500, L100.0100 ####[facility] [address] [place], [address] Platelets (Bld) [#/Vol] 181 10*3/uL Normal 150-450 [facility] Comment on above: Order Comment: 301.2 Performed By: #### L 500.2500, L100.0500 #### [facility] [address] [place], [address] Order Comment: 301.2 Performed By: #### L 500.2500, L100.0100 ####[facility] [address] [place], [address] RBC (Bld) [#/Vol] 3.10 10*6/uL Low 4.2-5.4 [facility] Comment on above: Order Comment: 301.2 Performed By: #### L 500.2500, L100.0500 #### [facility] [address] [place], [address] Order Comment: 301.2 Performed By: #### L 500.2500, L100.0100 ####[facility] [address] [place], [address] RDW SD 48.9 fl High 35.1-43.9 [facility] Comment on above: Order Comment: 301.2 Performed By: #### L 500.2500, L100.0500 #### [facility] [address] [place], [address] Order Comment: 301.2 Performed By: #### L 500.2500, L100.0100 ####[facility] [address] [place], [address] WBC (Bld) [#/Vol] 5.6 10*3/uL Normal 4.4-11.0 [facility] Comment on above: Order Comment: 301.2 Performed By: #### L 500.2500, L100.0500 #### [facility] [address] [place], [address] Order Comment: 301.2 Performed By: #### L 500.2500, L100.0100 ####[facility] [address] [place] [place], [address] Carbon dioxide measurementOr dered By: Kam Ocampo on 02-09-2024 CO2 [Moles/Vol] 28.0 mmol/L 21.0-32.0 [facility] Chloride measurementOrdered By: Kam Ocampo on 02-09-2024 Chloride [Moles/Vol] 105 mmol/L 98-107 [facility] Eosinophil percentageOrdered By: Kam Ocampo on 02-09-2024 Eosinophils/100 WBC (Bld) 0.2 % 0-5 [facility] Erythrocyte distribution wid th (RBC) [Ratio]Ordered By: Kam Ocampo on 02-09-2024 Erythrocyte distribution width (RBC) [Entitic vol] 48.9 fL High 35.1-43.9 [facility] Erythrocyte distribution wid th ratioOrdered By: Kam Ocampo on 02-09-2024 Erythrocyte distribution width (RBC) [Ratio] 13.9 % 11.6-14.6 [facility] Estimated glomerular filtrat ion rate (GFR) AmericanOrdered By: Kam Ocampo on 02-09-2024 Estimated GFR (MDRD) Amer 69 mL/min >60 [facility] Comment on above: GFR Calc Glomerular filtration rate ( GFR) estimationOrdered By: Kam Ocampo on 02-09-2024 Estimated GFR (MDRD) Non-Af Amer 57 mL/min Low >60 [facility] Comment on above: Non- GFR Calc Glucose measurementOrdered B y: Kam Ocampo on 02-09-2024 Glucose [Mass/Vol] 88 mg/dL 74-106 [facility] Hematocrit Auto (Bld) [Volum e fraction]Ordered By: Kam Ocampo on 02-09-2024 Hematocrit (Bld) [Volume fraction] 30.0 % Low 37-47 [facility] Hemoglobin measurementOrdere d By: Kam Ocampo on 02-09-2024 Hemoglobin (Bld) [Mass/Vol] 10.0 g/dL Low 12.0-15.0 [facility] Immature granulocytes/100 WB C Auto (Bld)Ordered By: Kam Ocampo on 02-09-2024 Immature granulocytes/100 WBC (Bld) 0.400 % 0.0-0.9 [facility] Comment on above: IG% - Immature Granu locytes (promyelocytes, myelocytes and metamyelocytes) > 1% indicates that a LEFT SHIFT is Present. Lymphocytes Auto (Unsp spec) [#/Vol]Ordered By: Kam Ocampo on 02-09-2024 Lymphocytes (Bld) [#/Vol] 1.89 10*3/uL 0.83-4.51 [facility] Lymphocytes/100 WBC Auto (Un sp spec)Ordered By: Kam Ocampo on 02-09-2024 Lymphocytes/100 WBC (Bld) 33.9 % 19-41 [facility] MCV (mean corpuscular volume ) determinationOrdered By: Kam Ocampo on 02-09-2024 MCV (RBC) [Entitic vol] 96.8 fL 81-99 [facility] Mean corpuscular hemoglobin (MCH) determinationOrdered By: Kam Ocampo on 02-09-2024 MCH (RBC) [Entitic mass] 32.3 pg High 27.0-32.0 [facility] Mean corpuscular hemoglobin concentration (MCHC) determinationOrdered By: Kam Ocampo on 02-09-2024 MCHC (RBC) [Mass/Vol] 33.3 g/dL 32-36 [facility] Mean platelet volume determi nationOrdered By: Kam Ocampo on 02-09-2024 Platelet mean volume (Bld) [Entitic vol] 9.5 fL 6.2-12.0 [facility] Monocyte percentageOrdered B y: Kam Ocampo on 02-09-2024 Monocytes/100 WBC (Bld) 8.8 % 0-10 [facility] Neutrophil percentageOrdered By: Kam Ocampo on 02-09-2024 Neutrophils/100 WBC (Bld) 56.5 % 47-70 [facility] Nucleated red blood cell per centageOrdered By: Kam Ocampo on 02-09-2024 Nucleated RBC/100 WBC (Bld) [Ratio] 0 % 0-5 [facility] Platelet countOrdered By: Dugan on 02-09-2024 Platelets (Bld) [#/Vol] 181 10*3/uL 150-450 [facility] Potassium measurementOrdered By: Kam Ocampo on 02-09-2024 Potassium [Moles/Vol] 4.2 mmol/L 3.5-5.1 [facility] RBC Auto (Bld) [#/Vol]Ordere d By: Kam Ocampo on 02-09-2024 RBC (Bld) [#/Vol] 3.10 10*6/uL Low 4.2-5.4 [facility] Serum anion gap measurementO rdered By: Kam Ocampo on 02-09-2024 Anion gap [Moles/Vol] 5 mmol/L 5-15 [facility] Serum or plasma calcium светлана urement (mass/volume)Ordered By: Kam Ocampo on 02-09-2024 Calcium [Mass/Vol] 9.0 mg/dL 8.5-10.1 [facility] Serum or plasma creatinine m easurement (mass/volume)Ordered By: Kam Ocampo on 02-09-2024 Creatinine [Mass/Vol] 0.98 mg/dL 0.55-1.02 [facility] Comment on above: The validity of the calculated GFR & GFRAA in patients over 70 years has not been determined. Clinical correlation is essential. Serum or plasma urea nitroge n measurement (mass/volume)Ordered By: Kam Ocampo on 02-09-2024 Urea nitrogen [Mass/Vol] 18 mg/dL 7-18 [facility] Sodium levelOrdered By: Kam Ocampo on 02-09-2024 Sodium [Moles/Vol] 138 mmol/L 136-145 [facility] White blood cell (WBC) count Ordered By: Kam Ocampo on 02-09-2024 WBC (Bld) [#/Vol] 5.6 10*3/uL 4.4-11.0 [facility] FLU AND RSV PANEL MOLECULARo n 02-08-2024 FLU AND RSV PANEL INFLUENZA A Negative INFLUENZA B Negative RSV PCR Negative Normal [facility] Comment on above: Performed By: #### L 500.2500, L100.0500 #### [facility] [address] [place], [address] Performed By: #### M 100.640 ####[facility] [address] [place], [address] No Panel InformationOrdered By: Kam Ocampo on 02-08-2024 Influenza & RSV (PCR) [facility] Urine Cultureon 01-27-2024 URC Culture exhibits no growth. Normal [facility] Comment on above: Performed By: #### L 500.2500, L100.0500 #### [facility] [address] [place], [address] Performed By: #### M 100.2200, L100.0500, L400.0001, L500.4050 ####[facility] [address] [place], [address] Albumin to globulin ratioOrd ered By: Kam Ocampo on 01-26-2024 Albumin/Globulin [Mass ratio] 0.7 {ratio} Low 0.9-2.4 [facility] Bilirubin, totalOrdered By: Kam Ocampo on 01-26-2024 Bilirubin [Mass/Vol] 0.50 mg/dL 0.20-1.00 [facility] Comment on above: For patients on eltr ombopag therapy, use of Dimension [place] TBIL is not recommended. Blood urea nitrogen (BUN)/cr eatinine ratioOrdered By: Kam Ocampo on 01-26-2024 Urea nitrogen/Creatinine [Mass ratio] 15.8 mg/mg - [facility] CBC-Complete Blood Cnt No Di ffon 01-26-2024 Erythrocyte distribution width (RBC) [Ratio] 13.5 % Normal 11.6-14.6 [facility] Comment on above: Performed By: #### L 500.2500, L100.0500 #### [facility] [address] [place], [address] Performed By: #### M 100.2200, L100.0500, L400.0001, L500.4050 ####[facility] [address] [place], [address] Hematocrit (Bld) [Volume fraction] 31.1 % Low 37-47 [facility] Comment on above: Performed By: #### L 500.2500, L100.0500 #### [facility] [address] [place], [address] Performed By: #### M 100.2200, L100.0500, L400.0001, L500.4050 ####[facility] [address] [place], [address] Hemoglobin (Bld) [Mass/Vol] 10.0 g/dL Low 12.0-15.0 [facility] Comment on above: Performed By: #### L 500.2500, L100.0500 #### [facility] [address] [place], [address] Performed By: #### M 100.2200, L100.0500, L400.0001, L500.4050 ####[facility] [address] [place], [address] MCH (RBC) [Entitic mass] 31.6 pg Normal 27.0-32.0 [facility] Comment on above: Performed By: #### L 500.2500, L100.0500 #### [facility] [address] [place], [address] Performed By: #### M 100.2200, L100.0500, L400.0001, L500.4050 ####[facility] [address] [place], [address] MCHC (RBC) [Mass/Vol] 32.2 g/dL Normal 32-36 [facility] Comment on above: Performed By: #### L 500.2500, L100.0500 #### [facility] [address] [place], [address] Performed By: #### M 100.2200, L100.0500, L400.0001, L500.4050 ####[facility] [address] [place], [address] MCV (RBC) [Entitic vol] 98.4 fL Normal 81-99 [facility] Comment on above: Performed By: #### L 500.2500, L100.0500 #### [facility] [address] [place], [address] Performed By: #### M 100.2200, L100.0500, L400.0001, L500.4050 ####[facility] [address] [place], [address] Platelet mean volume (Bld) [Entitic vol] 9.2 fL Normal 6.2-12.0 [facility] Comment on above: Performed By: #### L 500.2500, L100.0500 #### [facility] [address] [place], [address] Performed By: #### M 100.2200, L100.0500, L400.0001, L500.4050 ####[facility] [address] [place], [address] Platelets (Bld) [#/Vol] 197 10*3/uL Normal 150-450 [facility] Comment on above: Performed By: #### L 500.2500, L100.0500 #### [facility] [address] [place], [address] Performed By: #### M 100.2200, L100.0500, L400.0001, L500.4050 ####[facility] [address] [place], [address] RBC (Bld) [#/Vol] 3.16 10*6/uL Low 4.2-5.4 [facility] Comment on above: Performed By: #### L 500.2500, L100.0500 #### [facility] [address] [place], [address] Performed By: #### M 100.2200, L100.0500, L400.0001, L500.4050 ####[facility] [address] [place], [address] RDW SD 48.3 fl High 35.1-43.9 [facility] Comment on above: Performed By: #### L 500.2500, L100.0500 #### [facility] [address] [place], [address] Performed By: #### M 100.2200, L100.0500, L400.0001, L500.4050 ####[facility] [address] [place], [address] WBC (Bld) [#/Vol] 5.2 10*3/uL Normal 4.4-11.0 [facility] Comment on above: Performed By: #### L 500.2500, L100.0500 #### [facility] [address] [place], [address] Performed By: #### M 100.2200, L100.0500, L400.0001, L500.4050 ####[facility] [address] [place], [address] Carbon dioxide measurementOr dered By: Kam Ocampo on 01-26-2024 CO2 [Moles/Vol] 29.0 mmol/L 21.0-32.0 [facility] Chloride measurementOrdered By: Kam Ocampo on 01-26-2024 Chloride [Moles/Vol] 110 mmol/L High 98-107 [facility] Comprehensive Metabolic Prof ilon 01-26-2024 Albumin [Mass/Vol] 2.6 g/dL Low 3.2-5.0 [facility] Comment on above: Order Comment: 301.2 Performed By: #### L 500.2500, L100.0500 #### [facility] [address] [place], [address] Order Comment: 301.2 SC Performed By: #### M 100.2200, L100.0500, L400.0001, L500.4050 ####[facility] [address] [place], [address] Albumin/Globulin [Mass ratio] 0.7 {ratio} Low 0.9-2.4 [facility] Comment on above: Order Comment: 301.2 Performed By: #### L 500.2500, L100.0500 #### [facility] [address] [place], [address] Order Comment: 301.2 SC Performed By: #### M 100.2200, L100.0500, L400.0001, L500.4050 ####[facility] [address] [place], [address] ALK P 67 U/L Normal 45-117 [facility] Comment on above: Order Comment: 301.2 Performed By: #### L 500.2500, L100.0500 #### [facility] [address] [place], [address] Order Comment: 301.2 SC Performed By: #### M 100.2200, L100.0500, L400.0001, L500.4050 ####[facility] [address] [place], [address] ALT [Catalytic activity/Vol] 28 U/L Normal 13-56 [facility] Comment on above: Order Comment: 301.2 Performed By: #### L 500.2500, L100.0500 #### [facility] [address] [place], [address] Order Comment: 301.2 SC Performed By: #### M 100.2200, L100.0500, L400.0001, L500.4050 ####[facility] [address] [place], [address] AST [Catalytic activity/Vol] 25 U/L Normal 15-37 [facility] Comment on above: Order Comment: 301.2 Performed By: #### L 500.2500, L100.0500 #### [facility] [address] [place], [address] Order Comment: 301.2 SC Performed By: #### M 100.2200, L100.0500, L400.0001, L500.4050 ####[facility] [address] [place], [address] Bilirubin [Mass/Vol] 0.50 mg/dL Normal 0.20-1.00 [facility] Comment on above: Order Comment: 301.2 Result Comment: For patients on eltrombopag therapy, use of Dimension [place] TBIL is not recommended. Performed By: #### L 500.2500, L100.0500 #### [facility] [address] [place], [address] Order Comment: 301.2 SC Result Comment: For patients on eltrombopag therapy, use of Dimension [place] TBIL is not recommended. Performed By: #### M 100.2200, L100.0500, L400.0001, L500.4050 ####[facility] [address] [place], [address] BUN/CRE 15.8 RATIO Normal 10-20 [facility] Comment on above: Order Comment: 301.2 Performed By: #### L 500.2500, L100.0500 #### [facility] [address] [place], [address] Order Comment: 301.2 SC Performed By: #### M 100.2200, L100.0500, L400.0001, L500.4050 ####[facility] [address] [place], [address] CA,Total 8.6 mg/dL Normal 8.5-10.1 [facility] Comment on above: Order Comment: 301.2 Performed By: #### L 500.2500, L100.0500 #### [facility] [address] [place], [address] Order Comment: 301.2 SC Performed By: #### M 100.2200, L100.0500, L400.0001, L500.4050 ####[facility] [address] [place], [address] Chloride [Moles/Vol] 110 mmol/L High 98-107 [facility] Comment on above: Order Comment: 301.2 Performed By: #### L 500.2500, L100.0500 #### [facility] [address] [place], [address] Order Comment: 301.2 SC Performed By: #### M 100.2200, L100.0500, L400.0001, L500.4050 ####[facility] [address] [place], [address] CO2 [Moles/Vol] 29.0 mmol/L Normal 21.0-32.0 [facility] Comment on above: Order Comment: 301.2 Performed By: #### L 500.2500, L100.0500 #### [facility] [address] [place], [address] Order Comment: 301.2 SC Performed By: #### M 100.2200, L100.0500, L400.0001, L500.4050 ####[facility] [address] [place], [address] Creatinine [Mass/Vol] 0.89 mg/dL Normal 0.55-1.02 [facility] Comment on above: Order Comment: 301.2 Result Comment: The validity of the calculated GFR GFRAA in patients over 70 years has not been determined. Clinical correlation is essential. Performed By: #### L 500.2500, L100.0500 #### [facility] [address] [place], [address] Order Comment: 301.2 SC Result Comment: The validity of the calculated GFR GFRAA in patients over70 years has not been determined. Clinical correlation isessential. Performed By: #### M 100.2200, L100.0500, L400.0001, L500.4050 ####[facility] [address] [place], [address] EST GFR - AA 77 mL/min Normal >60 [facility] Comment on above: Order Comment: 301.2 Result Comment: Afri can [place] GFR Calc Performed By: #### L 500.2500, L100.0500 #### [facility] [address] [place], [address] Order Comment: 301.2 SC Result Comment: Afri can [place] GFR Calc Performed By: #### M 100.2200, L100.0500, L400.0001, L500.4050 ####[facility] [address] [place], [address] GAP 3 Low 5-15 [facility] Comment on above: Order Comment: 301.2 Performed By: #### L 500.2500, L100.0500 #### [facility] [address] [place], [address] Order Comment: 301.2 SC Performed By: #### M 100.2200, L100.0500, L400.0001, L500.4050 ####[facility] [address] [place], [address] GFR/1.73 sq M.predicted among non-blacks MDRD (S/P/Bld) [Vol rate/Area] 64 mL/min/{1.73_m2} Normal >60 [facility] Comment on above: Order Comment: 301.2 Result Comment: Non- GFR Calc Performed By: #### L 500.2500, L100.0500 #### [facility] [address] [place], [address] Order Comment: 301.2 SC Result Comment: Non- GFR Calc Performed By: #### M 100.2200, L100.0500, L400.0001, L500.4050 ####[facility] [address] [place], [address] Globulin (S) [Mass/Vol] 3.8 g/dL Normal 2.2-4.2 [facility] Comment on above: Order Comment: 301.2 Performed By: #### L 500.2500, L100.0500 #### [facility] [address] [place], [address] Order Comment: 301.2 SC Performed By: #### M 100.2200, L100.0500, L400.0001, L500.4050 ####[facility] [address] [place], [address] Glucose [Mass/Vol] 84 mg/dL Normal 74-106 [facility] Comment on above: Order Comment: 301.2 Performed By: #### L 500.2500, L100.0500 #### [facility] [address] [place], [address] Order Comment: 301.2 SC Performed By: #### M 100.2200, L100.0500, L400.0001, L500.4050 ####[facility] [address] [place], [address] Potassium [Moles/Vol] 4.4 mmol/L Normal 3.5-5.1 [facility] Comment on above: Order Comment: 301.2 Performed By: #### L 500.2500, L100.0500 #### [facility] [address] [place], [address] Order Comment: 301.2 SC Performed By: #### M 100.2200, L100.0500, L400.0001, L500.4050 ####[facility] [address] [place], [address] Sodium [Moles/Vol] 142 mmol/L Normal 136-145 [facility] Comment on above: Order Comment: 301.2 Performed By: #### L 500.2500, L100.0500 #### [facility] [address] [place], [address] Order Comment: 301.2 SC Performed By: #### M 100.2200, L100.0500, L400.0001, L500.4050 ####[facility] [address] [place], [address] T PROT 6.4 g/dL Normal 6.4-8.2 [facility] Comment on above: Order Comment: 301.2 Performed By: #### L 500.2500, L100.0500 #### [facility] [address] [place], [address] Order Comment: 301.2 SC Performed By: #### M 100.2200, L100.0500, L400.0001, L500.4050 ####[facility] [address] [place], [address] Urea nitrogen [Mass/Vol] 14 mg/dL Normal 7-18 [facility] Comment on above: Order Comment: 301.2 Performed By: #### L 500.2500, L100.0500 #### [facility] [address] [place], [place], [address] Order Comment: 301.2 SC Performed By: #### M 100.2200, L100.0500, L400.0001, L500.4050 ####[facility] [address] [place], [place], [address] Erythrocyte distribution wid th (RBC) [Ratio]Ordered By: Kam Ocampo on 01-26-2024 Erythrocyte distribution width (RBC) [Entitic vol] 48.3 fL High 35.1-43.9 [facility] Erythrocyte distribution wid th ratioOrdered By: Kam Ocampo on 01-26-2024 Erythrocyte distribution width (RBC) [Ratio] 13.5 % 11.6-14.6 [facility] Estimated glomerular filtrat ion rate (GFR) AmericanOrdered By: Kam Ocampo on 01-26-2024 Estimated GFR (MDRD) Amer 77 mL/min >60 [facility] Comment on above: GFR Calc Glomerular filtration rate ( GFR) estimationOrdered By: Kam Ocampo on 01-26-2024 Estimated GFR (MDRD) Non-Af Amer 64 mL/min >60 [facility] Comment on above: Non- GFR Calc Glucose measurementOrdered B y: Kam Ocampo on 01-26-2024 Glucose [Mass/Vol] 84 mg/dL 74-106 [facility] Hematocrit Auto (Bld) [Volum e fraction]Ordered By: Kam Ocampo on 01-26-2024 Hematocrit (Bld) [Volume fraction] 31.1 % Low 37-47 [facility] Hemoglobin measurementOrdere d By: Kam Ocampo on 01-26-2024 Hemoglobin (Bld) [Mass/Vol] 10.0 g/dL Low 12.0-15.0 [facility] - Chemistry and C hemistry - challengeOrdered By: Kam Ocampo on 01-26-2024 AST [Catalytic activity/Vol] 25 U/L 15-37 [facility] MCV (mean corpuscular volume ) determinationOrdered By: Kam Ocampo on 01-26-2024 MCV (RBC) [Entitic vol] 98.4 fL 81-99 [facility] Mean corpuscular hemoglobin (MCH) determinationOrdered By: Kam Ocampo on 01-26-2024 MCH (RBC) [Entitic mass] 31.6 pg 27.0-32.0 [facility] Mean corpuscular hemoglobin concentration (MCHC) determinationOrdered By: Kam Ocampo on 01-26-2024 MCHC (RBC) [Mass/Vol] 32.2 g/dL 32-36 [facility] Mean platelet volume determi nationOrdered By: Kam Ocampo on 01-26-2024 Platelet mean volume (Bld) [Entitic vol] 9.2 fL 6.2-12.0 [facility] Platelet countOrdered By: Dugan on 01-26-2024 Platelets (Bld) [#/Vol] 197 10*3/uL 150-450 [facility] Potassium measurementOrdered By: Kam Ocampo on 01-26-2024 Potassium [Moles/Vol] 4.4 mmol/L 3.5-5.1 [facility] RBC Auto (Bld) [#/Vol]Ordere d By: Kam Ocampo on 01-26-2024 RBC (Bld) [#/Vol] 3.16 10*6/uL Low 4.2-5.4 [facility] Serum anion gap measurementO rdered By: Kam Ocampo on 01-26-2024 Anion gap [Moles/Vol] 3 mmol/L Low 5-15 [facility] Serum globulin measurementOr dered By: Kam Ocampo on 01-26-2024 Globulin (S) [Mass/Vol] 3.8 g/dL 2.2-4.2 [facility] Serum or plasma alanine browne otransferase (ALT) measurementOrdered By: Kam Ocampo on 01-26-2024 ALT [Catalytic activity/Vol] 28 U/L 13-56 [facility] Serum or plasma albumin светлана urement (mass/volume)Ordered By: Kam Ocampo on 01-26-2024 Albumin [Mass/Vol] 2.6 g/dL Low 3.2-5.0 [facility] Serum or plasma alkaline noy sphatase measurementOrdered By: Kam Ocampo on 01-26-2024 ALP [Catalytic activity/Vol] 67 U/L 45-117 [facility] Serum or plasma calcium светлана urement (mass/volume)Ordered By: Kam Ocampo on 01-26-2024 Calcium [Mass/Vol] 8.6 mg/dL 8.5-10.1 [facility] Serum or plasma creatinine m easurement (mass/volume)Ordered By: Kam Ocampo on 01-26-2024 Creatinine [Mass/Vol] 0.89 mg/dL 0.55-1.02 [facility] Comment on above: The validity of the calculated GFR & GFRAA in patients over 70 years has not been determined. Clinical correlation is essential. Serum or plasma urea nitroge n measurement (mass/volume)Ordered By: Kam Ocampo on 01-26-2024 Urea nitrogen [Mass/Vol] 14 mg/dL 7-18 [facility] S[facility]Ordered By: [facility]24 Sodium [Moles/Vol] 142 mmol/L 136-145 [facility] Total proteinOrdered By: Aline Ocampo on 01-26-2024 Protein [Mass/Vol] 6.4 g/dL 6.4-8.2 [facility] Urinalysis, Completeon 01-25 Mucus Ql (Urine sed) RARE Normal [facility] Comment on above: Order Comment: 301.2 Performed By: #### L 500.2500, L100.0500 #### [facility] [address] [place], [address] Order Comment: SCCAT HETER SPECIMEN Performed By: #### M 100.2200, L100.0500, L400.0001, L500.4050 ####[facility] [address] [place], [place], [address] WBC 0-5 SEEN Normal 0-5 [facility] Comment on above: Order Comment: 301.2 Performed By: #### L 500.2500, L100.0500 #### [facility] [address] [place], [address] Order Comment: SCCAT HETER SPECIMEN Performed By: #### M 100.2200, L100.0500, L400.0001, L500.4050 ####[facility] [address] [place], [address] BACTERIA 0 SEEN Normal None Seen [facility] Comment on above: Order Comment: 301.2 Performed By: #### L 500.2500, L100.0500 #### [facility] [address] [place], [address] Order Comment: SCCAT HETER SPECIMEN Performed By: #### M 100.2200, L100.0500, L400.0001, L500.4050 ####[facility] [address] [place], [address] EPI,SQUAMOUS 0 SEEN Normal 5-10 [facility] Comment on above: Order Comment: 301.2 Performed By: #### L 500.2500, L100.0500 #### [facility] [address] [place], [address] Order Comment: SCCAT HETER SPECIMEN Performed By: #### M 100.2200, L100.0500, L400.0001, L500.4050 ####[facility] [address] [place], [address] RBC 0 SEEN Normal 0-5 [facility] Comment on above: Order Comment: 301.2 Performed By: #### L 500.2500, L100.0500 #### [facility] [address] [place], [address] Order Comment: SCCAT HETER SPECIMEN Performed By: #### M 100.2200, L100.0500, L400.0001, L500.4050 ####[facility] [address] [place], [address] White blood cell (WBC) count Ordered By: Kam Ocampo on 01-26-2024 WBC (Bld) [#/Vol] 5.2 10*3/uL 4.4-11.0 [facility] Bilirubin Test strip Ql (U)O rdered By: Kam Ocampo on 01-25-2024 Bilirubin Ql (U) Negative Negative [facility] Epithelial cells.squamous LM Ql (Urine sed)Ordered By: Kam Ocampo on 01-25-2024 Epithelial cells.squamous LM.HPF (Urine sed) [#/Area] 0 /[HPF] 5-10 [facility] Glucose Ql (U)Ordered By: Dugan on 01-25-2024 Urine Glucose (UA) Normal mg/dl Normal [facility] Ketones Test strip Ql (U)Ord ered By: Kam Ocampo on 01-25-2024 Ketones Ql (U) Negative Negative [facility] Microscopic analysis of urin e for red blood cells (RBC)Ordered By: Kam Ocampo on 01-25-2024 Urine RBC 0 SEEN /hpf 0-5 [facility] Mucus LM Ql (Urine sed)Order ed By: Kam Ocampo on 01-25-2024 Mucus Ql (Urine sed) RARE /hpf [facility] Nitrite Test strip Ql (U)Ord ered By: Kam Ocampo on 01-25-2024 Nitrite Ql (U) Negative Negative [facility] Protein Test strip Ql (U)Ord ered By: Kam Ocampo on 01-25-2024 Protein Ql (U) 15 mg/dl High Negative [facility] Urine blood detectionOrdered By: Kam Ocampo on 01-25-2024 Urine Occult Blood Negative Negative [facility] Urine clarityOrdered By: Aline Ocampo on 01-25-2024 Clarity (U) Clear Clear [facility] Urine color determinationOrd ered By: Kam Ocampo on 01-25-2024 Color (U) Yellow Yellow [facility] Urine cultureOrdered By: Aline Ocampo on 01-25-2024 Bacteria identified Cx Nom (U) Culture exhibits no growth. [facility] Urine leukocyte esterase det ection by dipstickOrdered By: Kam Ocampo on 01-25-2024 Leukocyte esterase Test strip Ql (U) 25 /ul High Negative [facility] Urine pHOrdered By: Kam barker on 01-25-2024 pH (U) 6.0 [pH] 5.0 - 8.0 [facility] Urine sediment bacteria coun t by microscopy (number/high power field)Ordered By: Kam Ocampo on 01-25-2024 Bacteria LM.HPF (Urine sed) [#/Area] 0 /[HPF] None Seen [facility] Urine specific gravity measu rementOrdered By: Kam Ocampo on 01-25-2024 Specific gravity (U) [Rel density] 1.015 1.002-1.03 0 [facility] Urobilinogen Ql (U)Ordered B y: Kam Ocampo on 01-25-2024 Urine Urobilinogen Normal mg/dl Normal [facility] White blood cell countOrdere d By: Kam Ocampo on 01-25-2024 Urine WBC 0-5 SEEN /hpf 0-5 [facility] Urine Cultureon 01-13-2024 URC Proteus mirabilis [place] Count >100,000 Proteus mirabilis: REACTION Ampicillin Islt [...] TMP SMX Islt AYAH >=320 R Normal [facility] Comment on above: Performed By: #### L 500.2500, L100.0500 #### [facility] [address] [place] [address]. [place], [address] URC Normal [facility] Comment on above: Performed By: #### M 100.2200, L400.0001 ####[facility] [address] [place], [address] Urinalysis, Completeon 01-10 RBC 0-5 SEEN Normal 0-5 [facility] Comment on above: Order Comment: 301.2 Performed By: #### L 500.2500, L100.0500 #### [facility] [address] [place], [address] Order Comment: CLEAN CATCH Performed By: #### M 100.2200, L400.0001 ####[facility] [address] [place], [address] BACTERIA 2+ /hpf Normal None Seen [facility] Comment on above: Order Comment: 301.2 Performed By: #### L 500.2500, L100.0500 #### [facility] [address] [place], [address] Order Comment: CLEAN CATCH Performed By: #### M 100.2200, L400.0001 ####[facility] [address] [place], [address] EPI,SQUAMOUS 0-5 SEEN Normal 5-10 [facility] Comment on above: Order Comment: 301.2 Performed By: #### L 500.2500, L100.0500 #### [facility] [address] [place], [address] Order Comment: CLEAN CATCH Performed By: #### M 100.2200, L400.0001 ####[facility] [address] [place], [address] WBC >100 SEEN Normal 0-5 [facility] Comment on above: Order Comment: 301.2 Performed By: #### L 500.2500, L100.0500 #### [facility] [address] [place], [address] Order Comment: CLEAN CATCH Performed By: #### M 100.2200, L400.0001 ####[facility] [address] [place], [address] Mucus Ql (Urine sed) 0 SEEN Normal [facility] Comment on above: Order Comment: 301.2 Performed By: #### L 500.2500, L100.0500 #### [facility] [address] [place], [address] Order Comment: CLEAN CATCH Performed By: #### M 100.2200, L400.0001 ####[facility] [address] [place], [address] Lipid Profileon 12-14-2023 Cholesterol [Mass/Vol] 120 mg/dL Normal 200 [facility] Comment on above: Order Comment: 301.2 Result Comment: <200 mg/dL Desirable 200-240 mg/dL Borderline >240 mg/dL High Risk Performed By: #### L 501.080 #### [facility] [address] [place], [address] Order Comment: 301.2 Result Comment: <200 mg/dL Desirable 200-240 mg/dL Borderline >240 mg/dL High Risk Performed By: #### L 500.4100 ####[facility] [address] [place], [address] Cholesterol in HDL [Mass/Vol] 55 mg/dL Normal [facility] Comment on above: Order Comment: 301.2 Result Comment: The drugs N-Acetylcysteine and Metamizole may falsely depress this assay. Reference Range HDL <40 mg/dL Low HDL Cholesterol HDL >or= 60 mg/dL High HDL Cholesterol Performed By: #### L 501.080 #### [facility] [address] [place], [address] Order Comment: 301.2 Result Comment: The drugs N-Acetylcysteine and Metamizole may falselydepress this assay. Reference Range HDL <40 mg/dL Low HDL Cholesterol HDL >or= 60 mg/dL High HDL Cholesterol Performed By: #### L 500.4100 ####[facility] [address] [place], [address] Cholesterol in LDL [Mass/Vol] 51 mg/dL Normal 0-130 [facility] Comment on above: Order Comment: 301.2 Performed By: #### L 501.080 #### [facility] [address] [place], [address] Order Comment: 301.2 Performed By: #### L 500.4100 ####[facility] [address] [place], [address] Cholesterol in VLDL [Mass/Vol] 14 mg/dL Normal 5-40 [facility] Comment on above: Order Comment: 301.2 Performed By: #### L 501.080 #### [facility] [address] [place], [address] Order Comment: 301.2 Performed By: #### L 500.4100 ####[facility] [address] [place], [address] Triglyceride [Mass/Vol] 70 mg/dL Normal [facility] Comment on above: Order Comment: 301.2 Result Comment: The drugs N-Acetylcysteine and Metamizole may falsely depress this assay. Serum Triglycerides Reference Interval Normal <150 mg/dL Borderline high 150 - 199 mg/dL High 200 - 499 mg/dL Very High > or = 500 mg/dL Performed By: #### L 501.080 #### [facility] [address] [place], [address] Order Comment: 301.2 Result Comment: The drugs N-Acetylcysteine and Metamizole may falselydepress this assay.Serum Triglycerides Reference Interval Normal <150 mg/dL Borderline high 150 - 199 mg/dL High 200 - 499 mg/dL Very High > or = 500 mg/dL Performed By: #### L 500.4100 ####[facility] [address] [place], [address] CBC-Complete Blood Cnt No Di ffon 10-21-2023 Erythrocyte distribution width (RBC) [Ratio] 13.7 % Normal 11.6-14.6 [facility] Comment on above: Order Comment: 301.2 Performed By: #### L 500.4050, L100.0500 #### [facility] [address] [place], [address] Order Comment: 301.2 Performed By: #### L 500.4050, L100.0500 ####[facility] [address] [place], [address] Hematocrit (Bld) [Volume fraction] 32.2 % Low 37-47 [facility] Comment on above: Order Comment: 301.2 Performed By: #### L 500.4050, L100.0500 #### [facility] [address] [place], [address] Order Comment: 301.2 Performed By: #### L 500.4050, L100.0500 ####[facility] [address] [place], [address] Hemoglobin (Bld) [Mass/Vol] 10.2 g/dL Low 12.0-15.0 [facility] Comment on above: Order Comment: 301.2 Performed By: #### L 500.4050, L100.0500 #### [facility] [address] [place], [address] Order Comment: 301.2 Performed By: #### L 500.4050, L100.0500 ####[facility] [address] [place], [address] MCH (RBC) [Entitic mass] 32.3 pg High 27.0-32.0 [facility] Comment on above: Order Comment: 301.2 Performed By: #### L 500.4050, L100.0500 #### [facility] [address] [place], [address] Order Comment: 301.2 Performed By: #### L 500.4050, L100.0500 ####[facility] [address] [place], [address] MCHC (RBC) [Mass/Vol] 31.7 g/dL Low 32-36 [facility] Comment on above: Order Comment: 301.2 Performed By: #### L 500.4050, L100.0500 #### [facility] [address] [place], [address] Order Comment: 301.2 Performed By: #### L 500.4050, L100.0500 ####[facility] [address] [place], [address] MCV (RBC) [Entitic vol] 101.9 fL High 81-99 [facility] Comment on above: Order Comment: 301.2 Performed By: #### L 500.4050, L100.0500 #### [facility] [address] [place], [address] Order Comment: 301.2 Performed By: #### L 500.4050, L100.0500 ####[facility] [address] [place], [address] Platelet mean volume (Bld) [Entitic vol] 10.0 fL Normal 6.2-12.0 [facility] Comment on above: Order Comment: 301.2 Performed By: #### L 500.4050, L100.0500 #### [facility] [address] [place], [address] Order Comment: 301.2 Performed By: #### L 500.4050, L100.0500 ####[facility] [address] [place], [address] Platelets (Bld) [#/Vol] 157 10*3/uL Normal 150-450 [facility] Comment on above: Order Comment: 301.2 Performed By: #### L 500.4050, L100.0500 #### [facility] [address] [place], [address] Order Comment: 301.2 Performed By: #### L 500.4050, L100.0500 ####[facility] [address] [place], [address] RBC (Bld) [#/Vol] 3.16 10*6/uL Low 4.2-5.4 [facility] Comment on above: Order Comment: 301.2 Performed By: #### L 500.4050, L100.0500 #### [facility] [address] [place], [address] Order Comment: 301.2 Performed By: #### L 500.4050, L100.0500 ####[facility] [address] [place], [address] RDW SD 51.9 fl High 35.1-43.9 [facility] Comment on above: Order Comment: 301.2 Performed By: #### L 500.4050, L100.0500 #### [facility] [address] [place], [address] Order Comment: 301.2 Performed By: #### L 500.4050, L100.0500 ####[facility] [address] [place], [address] WBC (Bld) [#/Vol] 4.3 10*3/uL Low 4.4-11.0 [facility] Comment on above: Order Comment: 301.2 Performed By: #### L 500.4050, L100.0500 #### [facility] [address] [place], [address] Order Comment: 301.2 Performed By: #### L 500.4050, L100.0500 ####[facility] [address] [place], [address] Comprehensive Metabolic Prof ilon 10-21-2023 Albumin [Mass/Vol] 2.8 g/dL Low 3.2-5.0 [facility] Comment on above: Order Comment: 301.2 Performed By: #### L 500.4050, L100.0500 #### [facility] [address] [place], [address] Order Comment: 301.2 Performed By: #### L 500.4050, L100.0500 ####[facility] [address] [place], [address] Albumin/Globulin [Mass ratio] 0.7 {ratio} Low 0.9-2.4 [facility] Comment on above: Order Comment: 301.2 Performed By: #### L 500.4050, L100.0500 #### [facility] [address] [place], [address] Order Comment: 301.2 Performed By: #### L 500.4050, L100.0500 ####[facility] [address] [place], [address] ALK P 64 U/L Normal 45-117 [facility] Comment on above: Order Comment: 301.2 Performed By: #### L 500.4050, L100.0500 #### [facility] [address] [place], [address] Order Comment: 301.2 Performed By: #### L 500.4050, L100.0500 ####[facility] [address] [place], [address] ALT [Catalytic activity/Vol] 27 U/L Normal 13-56 [facility] Comment on above: Order Comment: 301.2 Performed By: #### L 500.4050, L100.0500 #### [facility] [address] [place], [address] Order Comment: 301.2 Performed By: #### L 500.4050, L100.0500 ####[facility] [address] [place], [address] AST [Catalytic activity/Vol] 24 U/L Normal 15-37 [facility] Comment on above: Order Comment: 301.2 Performed By: #### L 500.4050, L100.0500 #### [facility] [address] [place], [address] Order Comment: 301.2 Performed By: #### L 500.4050, L100.0500 ####[facility] [address] [place], [address] Bilirubin [Mass/Vol] 0.40 mg/dL Normal 0.20-1.00 [facility] Comment on above: Order Comment: 301.2 Result Comment: For patients on eltrombopag therapy, use of Dimension [place] TBIL is not recommended. Performed By: #### L 500.4050, L100.0500 #### [facility] [address] [place], [address] Order Comment: 301.2 Result Comment: For patients on eltrombopag therapy, use of Dimension [place] TBIL is not recommended. Performed By: #### L 500.4050, L100.0500 ####[facility] [address] [place], [address] BUN/CRE 21.2 RATIO High 10-20 [facility] Comment on above: Order Comment: 301.2 Performed By: #### L 500.4050, L100.0500 #### [facility] [address] [place], [address] Order Comment: 301.2 Performed By: #### L 500.4050, L100.0500 ####[facility] [address] [place], [address] CA,Total 9.0 mg/dL Normal 8.5-10.1 [facility] Comment on above: Order Comment: 301.2 Performed By: #### L 500.4050, L100.0500 #### [facility] [address] [place], [address] Order Comment: 301.2 Performed By: #### L 500.4050, L100.0500 ####[facility] [address] [place], [address] Chloride [Moles/Vol] 108 mmol/L High 98-107 [facility] Comment on above: Order Comment: 301.2 Performed By: #### L 500.4050, L100.0500 #### [facility] [address] [place], [address] Order Comment: 301.2 Performed By: #### L 500.4050, L100.0500 ####[facility] [address] [place], [address] CO2 [Moles/Vol] 25.0 mmol/L Normal 21.0-32.0 [facility] Comment on above: Order Comment: 301.2 Performed By: #### L 500.4050, L100.0500 #### [facility] [address] [place], [address] Order Comment: 301.2 Performed By: #### L 500.4050, L100.0500 ####[facility] [address] [place], [address] Creatinine [Mass/Vol] 0.85 mg/dL Normal 0.55-1.02 [facility] Comment on above: Order Comment: 301.2 Result Comment: The validity of the calculated GFR GFRAA in patients over 70 years has not been determined. Clinical correlation is essential. Performed By: #### L 500.4050, L100.0500 #### [facility] [address] [place], [address] Order Comment: 301.2 Result Comment: The validity of the calculated GFR GFRAA in patients over70 years has not been determined. Clinical correlation isessential. Performed By: #### L 500.4050, L100.0500 ####[facility] [address] [place], [address] EST GFR - AA 81 mL/min Normal >60 [facility] Comment on above: Order Comment: 301.2 Result Comment: Afri can [place] GFR Calc Performed By: #### L 500.4050, L100.0500 #### [facility] [address] [place], [address] Order Comment: 301.2 Result Comment: Afri can [place] GFR Calc Performed By: #### L 500.4050, L100.0500 ####[facility] [address] [place], [address] GAP 7 Normal 5-15 [facility] Comment on above: Order Comment: 301.2 Performed By: #### L 500.4050, L100.0500 #### [facility] [address] [place], [address] Order Comment: 301.2 Performed By: #### L 500.4050, L100.0500 ####[facility] [address] [place], [address] GFR/1.73 sq M.predicted among non-blacks MDRD (S/P/Bld) [Vol rate/Area] 67 mL/min/{1.73_m2} Normal >60 [facility] Comment on above: Order Comment: 301.2 Result Comment: Non- GFR Calc Performed By: #### L 500.4050, L100.0500 #### [facility] [address] [place], [address] Order Comment: 301.2 Result Comment: Non- GFR Calc Performed By: #### L 500.4050, L100.0500 ####[facility] [address] [place], [address] Globulin (S) [Mass/Vol] 3.9 g/dL Normal 2.2-4.2 [facility] Comment on above: Order Comment: 301.2 Performed By: #### L 500.4050, L100.0500 #### [facility] [address] [place], [address] Order Comment: 301.2 Performed By: #### L 500.4050, L100.0500 ####[facility] [address] [place], [address] Glucose [Mass/Vol] 89 mg/dL Normal 74-106 [facility] Comment on above: Order Comment: 301.2 Performed By: #### L 500.4050, L100.0500 #### [facility] [address] [place], [address] Order Comment: 301.2 Performed By: #### L 500.4050, L100.0500 ####[facility] [address] [place], [address] Potassium [Moles/Vol] 3.9 mmol/L Normal 3.5-5.1 [facility] Comment on above: Order Comment: 301.2 Performed By: #### L 500.4050, L100.0500 #### [facility] [address] [place], [address] Order Comment: 301.2 Performed By: #### L 500.4050, L100.0500 ####[facility] [address] [place], [address] Sodium [Moles/Vol] 140 mmol/L Normal 136-145 [facility] Comment on above: Order Comment: 301.2 Performed By: #### L 500.4050, L100.0500 #### [facility] [address] [place], [address] Order Comment: 301.2 Performed By: #### L 500.4050, L100.0500 ####[facility] [address] [place], [address] T PROT 6.7 g/dL Normal 6.4-8.2 [facility] Comment on above: Order Comment: 301.2 Performed By: #### L 500.4050, L100.0500 #### [facility] [address] [place], [address] Order Comment: 301.2 Performed By: #### L 500.4050, L100.0500 ####[facility] [address] [place], [address] Urea nitrogen [Mass/Vol] 18 mg/dL Normal 7-18 [facility] Comment on above: Order Comment: 301.2 Performed By: #### L 500.4050, L100.0500 #### [facility] [address] [place], [address] Order Comment: 301.2 Performed By: #### L 500.4050, L100.0500 ####[facility] [address] [place], [address] Basic Metabolic Profile (BMP )on 09-16-2023 BUN/CRE 17.2 RATIO Normal 10-20 [facility] Comment on above: Order Comment: 301.2 Performed By: #### L 500.2500, L100.0500 #### [facility] [address] [place], [address] Order Comment: 301.2 Performed By: #### L 500.2500, L100.0500 ####[facility] [address] [place], [address] CA,Total 9.0 mg/dL Normal 8.5-10.1 [facility] Comment on above: Order Comment: 301.2 Performed By: #### L 500.2500, L100.0500 #### [facility] [address] [place], [address] Order Comment: 301.2 Performed By: #### L 500.2500, L100.0500 ####[facility] [address] [place], [address] Chloride [Moles/Vol] 109 mmol/L High 98-107 [facility] Comment on above: Order Comment: 301.2 Performed By: #### L 500.2500, L100.0500 #### [facility] [address] [place], [address] Order Comment: 301.2 Performed By: #### L 500.2500, L100.0500 ####[facility] [address] [place], [address] CO2 [Moles/Vol] 27.0 mmol/L Normal 21.0-32.0 [facility] Comment on above: Order Comment: 301.2 Performed By: #### L 500.2500, L100.0500 #### [facility] [address] [place], [address] Order Comment: 301.2 Performed By: #### L 500.2500, L100.0500 ####[facility] [address] [place], [address] Creatinine [Mass/Vol] 0.93 mg/dL Normal 0.55-1.02 [facility] Comment on above: Order Comment: 301.2 Result Comment: The validity of the calculated GFR GFRAA in patients over 70 years has not been determined. Clinical correlation is essential. Performed By: #### L 500.2500, L100.0500 #### [facility] [address] [place], [address] Order Comment: 301.2 Result Comment: The validity of the calculated GFR GFRAA in patients over70 years has not been determined. Clinical correlation isessential. Performed By: #### L 500.2500, L100.0500 ####[facility] [address] [place], [address] EST GFR - AA 73 mL/min Normal >60 [facility] Comment on above: Order Comment: 301.2 Result Comment: Afri can [place] GFR Calc Performed By: #### L 500.2500, L100.0500 #### [facility] [address] [place], [address] Order Comment: 301.2 Result Comment: Afri can [place] GFR Calc Performed By: #### L 500.2500, L100.0500 ####[facility] [address] [place], [address] GAP 5 Normal 5-15 [facility] Comment on above: Order Comment: 301.2 Performed By: #### L 500.2500, L100.0500 #### [facility] [address] [place], [address] Order Comment: 301.2 Performed By: #### L 500.2500, L100.0500 ####[facility] [address] [place], [address] GFR/1.73 sq M.predicted among non-blacks MDRD (S/P/Bld) [Vol rate/Area] 61 mL/min/{1.73_m2} Normal >60 [facility] Comment on above: Order Comment: 301.2 Result Comment: Non- GFR Calc Performed By: #### L 500.2500, L100.0500 #### [facility] [address] [place], [address] Order Comment: 301.2 Result Comment: Non- GFR Calc Performed By: #### L 500.2500, L100.0500 ####[facility] [address] [place], [address] Glucose [Mass/Vol] 84 mg/dL Normal 74-106 [facility] Comment on above: Order Comment: 301.2 Performed By: #### L 500.2500, L100.0500 #### [facility] [address] [place], [address] Order Comment: 301.2 Performed By: #### L 500.2500, L100.0500 ####[facility] [address] [place], [address] Potassium [Moles/Vol] 4.1 mmol/L Normal 3.5-5.1 [facility] Comment on above: Order Comment: 301.2 Performed By: #### L 500.2500, L100.0500 #### [facility] [address] [place], [address] Order Comment: 301.2 Performed By: #### L 500.2500, L100.0500 ####[facility] [address] [place], [address] Sodium [Moles/Vol] 141 mmol/L Normal 136-145 [facility] Comment on above: Order Comment: 301.2 Performed By: #### L 500.2500, L100.0500 #### [facility] [address] [place], [address] Order Comment: 301.2 Performed By: #### L 500.2500, L100.0500 ####[facility] [address] [place], [address] Urea nitrogen [Mass/Vol] 16 mg/dL Normal 7-18 [facility] Comment on above: Order Comment: 301.2 Performed By: #### L 500.2500, L100.0500 #### [facility] [address] [place], [address] Order Comment: 301.2 Performed By: #### L 500.2500, L100.0500 ####[facility] [address] [place], [address] CBC-Complete Blood Cnt No Di ffon 09-16-2023 Erythrocyte distribution width (RBC) [Ratio] 13.9 % Normal 11.6-14.6 [facility] Comment on above: Order Comment: 301.2 Performed By: #### L 500.2500, L100.0500 #### [facility] [address] [place], [address] Order Comment: 301.2 Performed By: #### L 500.2500, L100.0500 ####[facility] [address] [place], [address] Hematocrit (Bld) [Volume fraction] 30.8 % Low 37-47 [facility] Comment on above: Order Comment: 301.2 Performed By: #### L 500.2500, L100.0500 #### [facility] [address] [place], [address] Order Comment: 301.2 Performed By: #### L 500.2500, L100.0500 ####[facility] [address] [place], [address] Hemoglobin (Bld) [Mass/Vol] 10.0 g/dL Low 12.0-15.0 [facility] Comment on above: Order Comment: 301.2 Performed By: #### L 500.2500, L100.0500 #### [facility] [address] [place], [address] Order Comment: 301.2 Performed By: #### L 500.2500, L100.0500 ####[facility] [address] [place], [address] MCH (RBC) [Entitic mass] 32.2 pg High 27.0-32.0 [facility] Comment on above: Order Comment: 301.2 Performed By: #### L 500.2500, L100.0500 #### [facility] [address] [place], [address] Order Comment: 301.2 Performed By: #### L 500.2500, L100.0500 ####[facility] [address] [place], [address] MCHC (RBC) [Mass/Vol] 32.5 g/dL Normal 32-36 [facility] Comment on above: Order Comment: 301.2 Performed By: #### L 500.2500, L100.0500 #### [facility] [address] [place], [address] Order Comment: 301.2 Performed By: #### L 500.2500, L100.0500 ####[facility] [address] [place], [address] MCV (RBC) [Entitic vol] 99.0 fL Normal 81-99 [facility] Comment on above: Order Comment: 301.2 Performed By: #### L 500.2500, L100.0500 #### [facility] [address] [place], [address] Order Comment: 301.2 Performed By: #### L 500.2500, L100.0500 ####[facility] [address] [place], [address] Platelet mean volume (Bld) [Entitic vol] 9.6 fL Normal 6.2-12.0 [facility] Comment on above: Order Comment: 301.2 Performed By: #### L 500.2500, L100.0500 #### [facility] [address] [place], [address] Order Comment: 301.2 Performed By: #### L 500.2500, L100.0500 ####[facility] [address] [place], [address] Platelets (Bld) [#/Vol] 200 10*3/uL Normal 150-450 [facility] Comment on above: Order Comment: 301.2 Performed By: #### L 500.2500, L100.0500 #### [facility] [address] [place], [address] Order Comment: 301.2 Performed By: #### L 500.2500, L100.0500 ####[facility] [address] [place], [address] RBC (Bld) [#/Vol] 3.11 10*6/uL Low 4.2-5.4 [facility] Comment on above: Order Comment: 301.2 Performed By: #### L 500.2500, L100.0500 #### [facility] [address] [place], [address] Order Comment: 301.2 Performed By: #### L 500.2500, L100.0500 ####[facility] [address] [place], [address] RDW SD 50.5 fl High 35.1-43.9 [facility] Comment on above: Order Comment: 301.2 Performed By: #### L 500.2500, L100.0500 #### [facility] [address] [place], [address] Order Comment: 301.2 Performed By: #### L 500.2500, L100.0500 ####[facility] [address] [place], [address] WBC (Bld) [#/Vol] 5.3 10*3/uL Normal 4.4-11.0 [facility] Comment on above: Order Comment: 301.2 Performed By: #### L 500.2500, L100.0500 #### [facility] [address] [place], [address] Order Comment: 301.2 Performed By: #### L 500.2500, L100.0500 ####[facility] [address] [place], [address] Renal Profileon 09-02-2023 Albumin [Mass/Vol] 2.7 g/dL Low 3.2-5.0 [facility] Comment on above: Order Comment: 301-2 Performed By: #### L 501.080 #### [facility] [address] [place], [address] Order Comment: 301-2 Performed By: #### L 500.3600 ####[facility] [address] [place], [address] BUN/CRE 21.0 RATIO High 10-20 [facility] Comment on above: Order Comment: 301-2 Performed By: #### L 501.080 #### [facility] [address] [place], [address] Order Comment: 301-2 Performed By: #### L 500.3600 ####[facility] [address] [place], [address] CA,Total 8.9 mg/dL Normal 8.5-10.1 [facility] Comment on above: Order Comment: 301-2 Performed By: #### L 501.080 #### [facility] [address] [place], [address] Order Comment: 301-2 Performed By: #### L 500.3600 ####[facility] [address] [place], [address] Chloride [Moles/Vol] 108 mmol/L High 98-107 [facility] Comment on above: Order Comment: 301-2 Performed By: #### L 501.080 #### [facility] [address] [place], [address] Order Comment: 301-2 Performed By: #### L 500.3600 ####[facility] [address] [place], [address] CO2 [Moles/Vol] 30.0 mmol/L Normal 21.0-32.0 [facility] Comment on above: Order Comment: 301-2 Performed By: #### L 501.080 #### [facility] [address] [place], [address] Order Comment: 301-2 Performed By: #### L 500.3600 ####[facility] [address] [place], [address] Creatinine [Mass/Vol] 1.00 mg/dL Normal 0.55-1.02 [facility] Comment on above: Order Comment: 301-2 Result Comment: The validity of the calculated GFR GFRAA in patients over 70 years has not been determined. Clinical correlation is essential. Performed By: #### L 501.080 #### [facility] [address] [place], [address] Order Comment: 301-2 Result Comment: The validity of the calculated GFR GFRAA in patients over70 years has not been determined. Clinical correlation isessential. Performed By: #### L 500.3600 ####[facility] [address] [place], [address] EST GFR - AA 67 mL/min Normal >60 [facility] Comment on above: Order Comment: 301-2 Result Comment: Afri can [place] GFR Calc Performed By: #### L 501.080 #### [facility] [address] [place], [address] Order Comment: 301-2 Result Comment: Afri can [place] GFR Calc Performed By: #### L 500.3600 ####[facility] [address] [place], [address] GFR/1.73 sq M.predicted among non-blacks MDRD (S/P/Bld) [Vol rate/Area] 56 mL/min/{1.73_m2} Low >60 [facility] Comment on above: Order Comment: 301-2 Result Comment: Non- GFR Calc Performed By: #### L 501.080 #### [facility] [address] [place], [address] Order Comment: 301-2 Result Comment: Non- GFR Calc Performed By: #### L 500.3600 ####[facility] [address] [place], [address] Glucose [Mass/Vol] 70 mg/dL Low 74-106 [facility] Comment on above: Order Comment: 301-2 Performed By: #### L 501.080 #### [facility] [address] [place], [address] Order Comment: 301-2 Performed By: #### L 500.3600 ####[facility] [address] [place], [address] Phosphate [Mass/Vol] 3.6 mg/dL Normal 2.5-4.9 [facility] Comment on above: Order Comment: 301-2 Performed By: #### L 501.080 #### [facility] [address] [place], [address] Order Comment: 301-2 Performed By: #### L 500.3600 ####[facility] [address] [place], [address] Potassium [Moles/Vol] 4.0 mmol/L Normal 3.5-5.1 [facility] Comment on above: Order Comment: 301-2 Performed By: #### L 501.080 #### [facility] [address] [place], [address] Order Comment: 301-2 Performed By: #### L 500.3600 ####[facility] [address] [place], [address] Sodium [Moles/Vol] 142 mmol/L Normal 136-145 [facility] Comment on above: Order Comment: 301-2 Performed By: #### L 501.080 #### [facility] [address] [place], [address] Order Comment: 301-2 Performed By: #### L 500.3600 ####[facility] [address] [place], [address] Urea nitrogen [Mass/Vol] 21 mg/dL High 7-18 [facility] Comment on above: Order Comment: 301-2 Performed By: #### L 501.080 #### [facility] [address] [place], [address] Order Comment: 301-2 Performed By: #### L 500.3600 ####[facility] [address] [place], [address] Basophil percentageOrdered B y: Kam Ocampo on 04-15-2023 Chloride [Moles/Vol] 107 mmol/L 98-107 [facility] Glucose [Mass/Vol] 86 mg/dL 74-106 [facility] Potassium [Moles/Vol] 3.9 mmol/L 3.5-5.1 [facility] Sodium [Moles/Vol] 143 mmol/L 136-145 [facility] Laboratory - Chemistry and C hemistry - challengeOrdered By: Kam Ocampo on 04-15-2023 CO2 [Moles/Vol] 32.0 mmol/L 21.0-32.0 [facility] Urea nitrogen/Creatinine [Mass ratio] 20.3 mg/mg 10-20 [facility] No Panel InformationOrdered By: Kam Ocampo on 04-15-2023 Estimated GFR (MDRD) Amer 78 mL/min >60 [facility] Comment on above: GFR Calc Estimated GFR (MDRD) Non-Af Amer 64 mL/min >60 [facility] Comment on above: Non- GFR Calc Serum or plasma calcium светлана urement (mass/volume)Ordered By: Kam Ocampo on 04-15-2023 Calcium [Mass/Vol] 8.5 mg/dL 8.5-10.1 [facility] Serum or plasma creatinine m easurement (mass/volume)Ordered By: Kam Ocampo on 04-15-2023 Creatinine [Mass/Vol] 0.89 mg/dL 0.55-1.02 [facility] Comment on above: The validity of the calculated GFR & GFRAA in patients over 70 years has not been determined. Clinical correlation is essential. Serum or plasma urea nitroge n measurement (mass/volume)Ordered By: Kam Ocampo on 04-15-2023 Urea nitrogen [Mass/Vol] 18 mg/dL 7-18 [facility] Thin prep Papanicolaou smear with manual screeningOrdered By: Kam Ocampo on 04-15-2023 Thin prep Papanicolaou smear with manual screening 4 5-15 [facility] Basophil percentageOrdered B y: Kam Ocampo on 03-11-2023 Bilirubin [Mass/Vol] 0.30 mg/dL 0.20-1.00 [facility] Comment on above: For patients on eltr ombopag therapy, use of Dimension [place] TBIL is not recommended. Chloride [Moles/Vol] 104 mmol/L 98-107 [facility] Glucose [Mass/Vol] 102 mg/dL 74-106 [facility] Comment on above: Fasting Glucose resu lt from 100 to 125 mg/dL suggests IMPAIRED HOMEOSTASIS per A.D.A. criteria. Hemoglobin (Bld) [Mass/Vol] 10.4 g/dL 12.0-15.0 [facility] Potassium [Moles/Vol] 4.1 mmol/L 3.5-5.1 [facility] Protein [Mass/Vol] 6.5 g/dL 6.4-8.2 [facility] Sodium [Moles/Vol] 140 mmol/L 136-145 [facility] WBC (Bld) [#/Vol] 4.9 10*3/uL 4.4-11.0 [facility] Determination of erythrocyte mean corpuscular volume (MCV)Ordered By: Kam Ocampo on 03-11-2023 MCV (RBC) [Entitic vol] 103.0 fL 81-99 [facility] Erythrocyte distribution wid th ratioOrdered By: Kam Ocampo on 03-11-2023 Erythrocyte distribution width (RBC) [Ratio] 14.4 % 11.6-14.6 [facility] Erythrocyte distribution wid th standard deviationOrdered By: Kam Ocampo on 03-11-2023 Erythrocyte distribution width (RBC) [Entitic vol] 54.2 fL 35.1-43.9 [facility] Hematocrit Auto (Bld) [Volum e fraction]Ordered By: Kam Ocampo on 03-11-2023 Hematocrit (Bld) [Volume fraction] 34.2 % 37-47 [facility] - Chemistry and C hemistry - challengeOrdered By: Kam Ocampo on 03-11-2023 Albumin/Globulin [Mass ratio] 0.6 {ratio} 0.9-2.4 [facility] ALP [Catalytic activity/Vol] 62 U/L 45-117 [facility] ALT [Catalytic activity/Vol] 27 U/L 13-56 [facility] CO2 [Moles/Vol] 33.0 mmol/L 21.0-32.0 [facility] Globulin (S) [Mass/Vol] 4.0 g/dL 2.2-4.2 [facility] Urea nitrogen/Creatinine [Mass ratio] 21.7 mg/mg 10-20 [facility] - Hematology and Cell countsOrdered By: Kam Ocampo on 03-11-2023 MCH (RBC) [Entitic mass] 31.3 pg 27.0-32.0 [facility] MCHC (RBC) [Mass/Vol] 30.4 g/dL 32-36 [facility] Platelets (Bld) [#/Vol] 169 10*3/uL 150-450 [facility] No Panel InformationOrdered By: Kam Ocampo on 03-11-2023 Estimated GFR (MDRD) Amer 79 mL/min >60 [facility] Comment on above: GFR Calc Estimated GFR (MDRD) Non-Af Amer 65 mL/min >60 [facility] Comment on above: Non- GFR Calc Platelet mean volume [place] (Bld) [Entitic vol]Ordered By: Kam Ocampo on 03-11-2023 Platelet mean volume (Bld) [Entitic vol] 9.4 fL 6.2-12.0 [facility] RBC Auto (Bld) [#/Vol]Ordere d By: Kam Ocampo on 03-11-2023 RBC (Bld) [#/Vol] 3.32 10*6/uL 4.2-5.4 [facility] Serum or plasma calcium светлана urement (mass/volume)Ordered By: Kam Ocampo on 03-11-2023 Calcium [Mass/Vol] 9.5 mg/dL 8.5-10.1 [facility] Serum or plasma creatinine m easurement (mass/volume)Ordered By: Kam Ocampo on 03-11-2023 Creatinine [Mass/Vol] 0.88 mg/dL 0.55-1.02 [facility] Comment on above: The validity of the calculated GFR & GFRAA in patients over 70 years has not been determined. Clinical correlation is essential. Serum or plasma urea nitroge n measurement (mass/volume)Ordered By: Kam Ocampo on 03-11-2023 Urea nitrogen [Mass/Vol] 19 mg/dL 7-18 [facility] Thin prep Papanicolaou smear with manual screeningOrdered By: Kam Ocampo on 03-11-2023 Thin prep Papanicolaou smear with manual screening 2.5 g/dL 3.2-5.0 [facility] Thin prep Papanicolaou smear with manual screening 19 U/L 15-37 [facility] Thin prep Papanicolaou smear with manual screening 3 5-15 [facility] Basophil percentageOrdered B y: Kam Ocampo on 02-19-2023 Chloride [Moles/Vol] 105 mmol/L 98-107 [facility] Glucose [Mass/Vol] 117 mg/dL 74-106 [facility] Comment on above: Fasting Glucose resu lt from 100 to 125 mg/dL suggests IMPAIRED HOMEOSTASIS per A.D.A. criteria. Potassium [Moles/Vol] 4.7 mmol/L 3.5-5.1 [facility] Sodium [Moles/Vol] 139 mmol/L 136-145 [facility] WBC (Bld) [#/Vol] 4.1 10*3/uL 4.4-11.0 [facility] Blood erythrocytes count (nu mber/volume)Ordered By: Kam Ocampo on 02-19-2023 RBC (Bld) [#/Vol] 3.55 10*6/uL 4.2-5.4 [facility] Blood hemoglobin measurement (mass/volume)Ordered By: Kam Ocampo on 02-19-2023 Hemoglobin (Bld) [Mass/Vol] 11.5 g/dL 12.0-15.0 [facility] Blood platelet mean volumeOr dered By: Kam Ocampo on 02-19-2023 Platelet mean volume (Bld) [Entitic vol] 9.3 fL 6.2-12.0 [facility] Determination of erythrocyte mean corpuscular volume (MCV)Ordered By: Kam Ocampo on 02-19-2023 MCV (RBC) [Entitic vol] 100.6 fL 81-99 [facility] Hematocrit Auto (Bld) [Volum e fraction]Ordered By: Kam Ocampo on 02-19-2023 Hematocrit (Bld) [Volume fraction] 35.7 % 37-47 [facility] - Chemistry and C hemistry - challengeOrdered By: Kam Ocampo on 02-19-2023 CO2 [Moles/Vol] 29.0 mmol/L 21.0-32.0 [facility] Urea nitrogen/Creatinine [Mass ratio] 23.7 mg/mg 10-20 [facility] - Hematology and Cell countsOrdered By: Kam Ocampo on 02-19-2023 Erythrocyte distribution width (RBC) [Entitic vol] 50.7 fL 35.1-43.9 [facility] Erythrocyte distribution width (RBC) [Ratio] 13.6 % 11.6-14.6 [facility] MCH (RBC) [Entitic mass] 32.4 pg 27.0-32.0 [facility] MCHC Auto (RBC) [Mass/Vol]Or dered By: Kam Ocampo on 02-19-2023 MCHC (RBC) [Mass/Vol] 32.2 g/dL 32-36 [facility] No Panel InformationOrdered By: Kam Ocampo on 02-19-2023 Estimated GFR (MDRD) Amer 78 mL/min >60 [facility] Comment on above: GFR Calc Estimated GFR (MDRD) Non-Af Amer 64 mL/min >60 [facility] Comment on above: Non- GFR Calc Platelets bldOrdered By: Aline Ocampo on 02-19-2023 Platelets (Bld) [#/Vol] 173 10*3/uL 150-450 [facility] Respiratory pathogens DNA an d RNA panel ALTHEA+probe (Resp)Ordered By: Kam Ocampo on 02-19-2023 Respiratory Panel (PCR) RSV B [facility] Respiratory Panel (PCR) RSV B [facility] Serum or plasma calcium светлана urement (mass/volume)Ordered By: Kam Ocampo on 02-19-2023 Calcium [Mass/Vol] 8.4 mg/dL 8.5-10.1 [facility] Serum or plasma creatinine m easurement (mass/volume)Ordered By: Kam Ocampo on 02-19-2023 Creatinine [Mass/Vol] 0.89 mg/dL 0.55-1.02 [facility] Comment on above: The validity of the calculated GFR & GFRAA in patients over 70 years has not been determined. Clinical correlation is essential. Serum or plasma urea nitroge n measurement (mass/volume)Ordered By: Kam Ocampo on 02-19-2023 Urea nitrogen [Mass/Vol] 21 mg/dL 7-18 [facility] Thin prep Papanicolaou smear with manual screeningOrdered By: Kam Ocampo on 02-19-2023 Thin prep Papanicolaou smear with manual screening 5 5-15 [facility] Basophil percentageOrdered B y: Kam Ocampo on 02-10-2023 WBC (Bld) [#/Vol] 4.7 10*3/uL 4.4-11.0 [facility] Blood erythrocytes count (nu mber/volume)Ordered By: Kam Ocampo on 02-10-2023 RBC (Bld) [#/Vol] 3.25 10*6/uL 4.2-5.4 [facility] Blood hemoglobin measurement (mass/volume)Ordered By: Kam Ocampo on 02-10-2023 Hemoglobin (Bld) [Mass/Vol] 10.9 g/dL 12.0-15.0 [facility] Blood platelet mean volumeOr dered By: Kam Ocampo on 02-10-2023 Platelet mean volume (Bld) [Entitic vol] 9.2 fL 6.2-12.0 [facility] Determination of erythrocyte mean corpuscular volume (MCV)Ordered By: Kam Ocampo on 02-10-2023 MCV (RBC) [Entitic vol] 103.4 fL 81-99 [facility] Hematocrit Auto (Bld) [Volum e fraction]Ordered By: Kam Ocampo on 02-10-2023 Hematocrit (Bld) [Volume fraction] 33.6 % 37-47 [facility] - Hematology and Cell countsOrdered By: Kam Ocampo on 02-10-2023 Erythrocyte distribution width (RBC) [Entitic vol] 53.1 fL 35.1-43.9 [facility] Erythrocyte distribution width (RBC) [Ratio] 13.9 % 11.6-14.6 [facility] MCH (RBC) [Entitic mass] 33.5 pg 27.0-32.0 [facility] MCHC Auto (RBC) [Mass/Vol]Or dered By: Kam Ocampo on 02-10-2023 MCHC (RBC) [Mass/Vol] 32.4 g/dL 32-36 [facility] Platelets bldOrdered By: Aline Ocampo on 02-10-2023 Platelets (Bld) [#/Vol] 227 10*3/uL 150-450 [facility] Basophil percentageOrdered B y: Kam Ocampo on 01-27-2023 Bilirubin [Mass/Vol] 0.30 mg/dL 0.20-1.00 [facility] Comment on above: For patients on eltr ombopag therapy, use of Dimension [place] TBIL is not recommended. Chloride [Moles/Vol] 109 mmol/L 98-107 [facility] Glucose [Mass/Vol] 77 mg/dL 74-106 [facility] Potassium [Moles/Vol] 4.2 mmol/L 3.5-5.1 [facility] Protein [Mass/Vol] 6.2 g/dL 6.4-8.2 [facility] Sodium [Moles/Vol] 142 mmol/L 136-145 [facility] WBC (Bld) [#/Vol] 5.6 10*3/uL 4.4-11.0 [facility] Blood erythrocytes count (nu mber/volume)Ordered By: Kam Ocampo on 01-27-2023 RBC (Bld) [#/Vol] 3.10 10*6/uL 4.2-5.4 [facility] Blood hemoglobin measurement (mass/volume)Ordered By: Kam Ocampo on 01-27-2023 Hemoglobin (Bld) [Mass/Vol] 10.1 g/dL 12.0-15.0 [facility] Blood platelet mean volumeOr dered By: Kam Ocampo on 01-27-2023 Platelet mean volume (Bld) [Entitic vol] 9.2 fL 6.2-12.0 [facility] Determination of erythrocyte mean corpuscular volume (MCV)Ordered By: Kam Ocampo on 01-27-2023 MCV (RBC) [Entitic vol] 103.9 fL 81-99 [facility] Hematocrit Auto (Bld) [Volum e fraction]Ordered By: Kam Ocampo on 01-27-2023 Hematocrit (Bld) [Volume fraction] 32.2 % 37-47 [facility] - Chemistry and C hemistry - challengeOrdered By: Kam Ocampo on 01-27-2023 ALP [Catalytic activity/Vol] 66 U/L 45-117 [facility] ALT [Catalytic activity/Vol] 29 U/L 13-56 [facility] CO2 [Moles/Vol] 30.0 mmol/L 21.0-32.0 [facility] Globulin (S) [Mass/Vol] 3.8 g/dL 2.2-4.2 [facility] Urea nitrogen/Creatinine [Mass ratio] 21.9 mg/mg 10-20 [facility] - Hematology and Cell countsOrdered By: Kam Ocampo on 01-27-2023 Erythrocyte distribution width (RBC) [Entitic vol] 54.4 fL 35.1-43.9 [facility] Erythrocyte distribution width (RBC) [Ratio] 14.4 % 11.6-14.6 [facility] MCH (RBC) [Entitic mass] 32.6 pg 27.0-32.0 [facility] MCHC Auto (RBC) [Mass/Vol]Or dered By: Kam Ocampo on 01-27-2023 MCHC (RBC) [Mass/Vol] 31.4 g/dL 32-36 [facility] No Panel InformationOrdered By: Kam Ocampo on 01-27-2023 Estimated GFR (MDRD) Amer 75 mL/min >60 [facility] Comment on above: GFR Calc Estimated GFR (MDRD) Non-Af Amer 62 mL/min >60 [facility] Comment on above: Non- GFR Calc Platelets bldOrdered By: Aline Ocampo on 01-27-2023 Platelets (Bld) [#/Vol] 168 10*3/uL 150-450 [facility] Serum or plasma albumin светлана urement (mass/volume)Ordered By: Kam Ocampo on 01-27-2023 Albumin [Mass/Vol] 2.4 g/dL 3.2-5.0 [facility] Serum or plasma albumin/glob ulin mass ratioOrdered By: Kam Ocampo on 01-27-2023 Albumin/Globulin [Mass ratio] 0.6 {ratio} 0.9-2.4 [facility] Serum or plasma calcium светлана urement (mass/volume)Ordered By: Kam Ocampo on 01-27-2023 Calcium [Mass/Vol] 8.5 mg/dL 8.5-10.1 [facility] Serum or plasma creatinine m easurement (mass/volume)Ordered By: Kam Ocampo on 01-27-2023 Creatinine [Mass/Vol] 0.92 mg/dL 0.55-1.02 [facility] Comment on above: The validity of the calculated GFR & GFRAA in patients over 70 years has not been determined. Clinical correlation is essential. Serum or plasma urea nitroge n measurement (mass/volume)Ordered By: Kam Ocampo on 01-27-2023 Urea nitrogen [Mass/Vol] 20 mg/dL 7-18 [facility] Thin prep Papanicolaou smear with manual screeningOrdered By: Kam Ocampo on 01-27-2023 Thin prep Papanicolaou smear with manual screening 18 U/L 15-37 [facility] Thin prep Papanicolaou smear with manual screening 3 5-15 [facility] Acid fast bacilli (AFB) cult ureOrdered By: Kam Ocampo on 12-02-2022 Mycobacterium sp identified Org specific cx Nom (Unsp spec) [facility] Thin prep Papanicolaou smear with manual screeningOrdered By: Kam Ocampo on 12-02-2022 Thin prep Papanicolaou smear with manual screening [facility] Acid fast bacilli (AFB) cult ureOrdered By: Kam Ocampo on 12-01-2022 Mycobacterium sp identified Org specific cx Nom (Unsp spec) [facility] Bacteria identified Respirat ory culture Nom (Unsp spec)Ordered By: Kam Ocampo on 12-01-2022 Respiratory Culture Diane albicans [facility] Gram stain for investigation of transfusion reactionOrdered By: Kam Ocampo on 12-01-2022 Microscopic observation Gram stain Nom (Unsp spec) [facility] Thin prep Papanicolaou smear with manual screeningOrdered By: Kam Ocampo on 12-01-2022 Thin prep Papanicolaou smear with manual screening [facility] Acid fast bacilli (AFB) cult ureOrdered By: Kam Ocampo on 11-28-2022 Mycobacterium sp identified Org specific cx Nom (Unsp spec) [facility] Qualitative QuantiFERON-TB g old in tube testOrdered By: Kam Ocampo on 11-28-2022 M. tuberculosis tuberculin stim IFN-g Ql (Bld) 0.09 IU/mL . [facility] Thin prep Papanicolaou smear with manual screeningOrdered By: Kam Ocampo on 11-28-2022 Thin prep Papanicolaou smear with manual screening [facility] Thin prep Papanicolaou smear with manual screening Comment . [facility] Comment on above: QuantiFERON-TB Gold Plus is [...] smear with manual screening 0.08 IU/mL . [facility] Thin prep Papanicolaou smear with manual screening 0.09 IU/mL . [facility] Thin prep Papanicolaou smear with manual screening > 10.00 IU/mL . [facility] Thin prep Papanicolaou smear with manual screening Negative Negative [facility] Comment on above: No response to M [...] the productionof interferon gamma. Chemiluminescence immunoassaymethodologyPerformed at: [employer] [facility] [id number] Director: Radu Leal PhD, Phone: [phone] Basophil percentageOrdered B y: Kam Ocampo on 11-10-2022 Bilirubin [Mass/Vol] 0.50 mg/dL 0.20-1.00 [facility] Comment on above: For patients on eltr ombopag therapy, use of Dimension [place] TBIL is not recommended. Chloride [Moles/Vol] 105 mmol/L 98-107 [facility] Glucose [Mass/Vol] 88 mg/dL 74-106 [facility] Potassium [Moles/Vol] 4.5 mmol/L 3.5-5.1 [facility] Protein [Mass/Vol] 6.9 g/dL 6.4-8.2 [facility] Sodium [Moles/Vol] 141 mmol/L 136-145 [facility] WBC (Bld) [#/Vol] 9.3 10*3/uL 4.4-11.0 [facility] Blood erythrocytes count (nu mber/volume)Ordered By: Kam Ocampo on 11-10-2022 RBC (Bld) [#/Vol] 3.43 10*6/uL 4.2-5.4 [facility] Blood hemoglobin measurement (mass/volume)Ordered By: Kam Ocampo on 11-10-2022 Hemoglobin (Bld) [Mass/Vol] 11.3 g/dL 12.0-15.0 [facility] Blood platelet mean volumeOr dered By: Kam Ocampo on 11-10-2022 Platelet mean volume (Bld) [Entitic vol] 9.8 fL 6.2-12.0 [facility] Determination of erythrocyte mean corpuscular volume (MCV)Ordered By: Kam Ocampo on 11-10-2022 MCV (RBC) [Entitic vol] 107.3 fL 81-99 [facility] Comment on above: Delta: 101.3 on 10/11 Hematocrit Auto (Bld) [Volum e fraction]Ordered By: Kam Ocampo on 11-10-2022 Hematocrit (Bld) [Volume fraction] 36.8 % 37-47 [facility] - Chemistry and C hemistry - challengeOrdered By: Kam Ocampo on 11-10-2022 ALP [Catalytic activity/Vol] 68 U/L 45-117 [facility] ALT [Catalytic activity/Vol] 27 U/L 13-56 [facility] CO2 [Moles/Vol] 35.0 mmol/L 21.0-32.0 [facility] Globulin (S) [Mass/Vol] 4.0 g/dL 2.2-4.2 [facility] Urea nitrogen/Creatinine [Mass ratio] 28.0 mg/mg 10-20 [facility] - Hematology and Cell countsOrdered By: Kam Ocampo on 11-10-2022 Erythrocyte distribution width (RBC) [Entitic vol] 56.2 fL 35.1-43.9 [facility] Erythrocyte distribution width (RBC) [Ratio] 14.5 % 11.6-14.6 [facility] MCH (RBC) [Entitic mass] 32.9 pg 27.0-32.0 [facility] MCHC Auto (RBC) [Mass/Vol]Or dered By: Kam Ocampo on 11-10-2022 MCHC (RBC) [Mass/Vol] 30.7 g/dL 32-36 [facility] Comment on above: Delta: 32.8 on 11/06-1730 No Panel InformationOrdered By: Kam Ocampo on 11-10-2022 Estimated GFR (MDRD) Amer 56 mL/min >60 [facility] Comment on above: GFR Calc Estimated GFR (MDRD) Non-Af Amer 46 mL/min >60 [facility] Comment on above: Non- GFR Calc Platelets bldOrdered By: Aline Ocampo on 11-10-2022 Platelets (Bld) [#/Vol] 225 10*3/uL 150-450 [facility] Serum or plasma albumin светлана urement (mass/volume)Ordered By: Kam Ocampo on 11-10-2022 Albumin [Mass/Vol] 2.9 g/dL 3.2-5.0 [facility] Serum or plasma albumin/glob ulin mass ratioOrdered By: Kam Ocampo on 11-10-2022 Albumin/Globulin [Mass ratio] 0.7 {ratio} 0.9-2.4 [facility] Serum or plasma calcium светлана urement (mass/volume)Ordered By: Kam Ocampo on 11-10-2022 Calcium [Mass/Vol] 9.6 mg/dL 8.5-10.1 [facility] Serum or plasma creatinine m easurement (mass/volume)Ordered By: Kam Ocampo on 11-10-2022 Creatinine [Mass/Vol] 1.18 mg/dL 0.55-1.02 [facility] Comment on above: The validity of the calculated GFR & GFRAA in patients over 70 years has not been determined. Clinical correlation is essential. Serum or plasma urea nitroge n measurement (mass/volume)Ordered By: Kam Ocampo on 11-10-2022 Urea nitrogen [Mass/Vol] 33 mg/dL 7-18 [facility] Thin prep Papanicolaou smear with manual screeningOrdered By: Kam Ocampo on 11-10-2022 Thin prep Papanicolaou smear with manual screening 19 U/L 15-37 [facility] Thin prep Papanicolaou smear with manual screening 1 5-15 [facility] Absolute lymphocyte countOrd ered By: Yandel Matute on 11-06-2022 Lymphocytes Auto (Unsp spec) [#/Vol] 2.18 10*3/uL 0.83-4.51 [facility] Basophil percentageOrdered B y: Yandel Matute on 11-06-2022 Basophil percentage 0-5 SEEN /hpf 0-5 [facility] Basophils/100 WBC (Bld) 0.4 % 0-1 [facility] Chloride [Moles/Vol] 102 mmol/L 98-107 [facility] Eosinophils/100 WBC (Bld) 1.6 % 0-5 [facility] Glucose [Mass/Vol] 99 mg/dL 74-106 [facility] Neutrophils (Bld) [#/Vol] 4.5 10*3/uL 2.0-7.7 [facility] Neutrophils/100 WBC (Bld) 60.8 % 47-70 [facility] Potassium [Moles/Vol] 4.2 mmol/L 3.5-5.1 [facility] Sodium [Moles/Vol] 137 mmol/L 136-145 [facility] WBC (Bld) [#/Vol] 7.4 10*3/uL 4.4-11.0 [facility] Basophil percentageOrdered B y: Kam Ocampo on 11-06-2022 Basophil percentage >100 SEEN /hpf 0-5 [facility] Bilirubin [Mass/Vol] 0.50 mg/dL 0.20-1.00 [facility] Comment on above: For patients on eltr ombopag therapy, use of Dimension [place] TBIL is not recommended. Chloride [Moles/Vol] 104 mmol/L 98-107 [facility] Glucose [Mass/Vol] 123 mg/dL 74-106 [facility] Comment on above: Fasting Glucose resu lt from 100 to 125 mg/dL suggests IMPAIRED HOMEOSTASIS per A.D.A. criteria. Potassium [Moles/Vol] 4.1 mmol/L 3.5-5.1 [facility] Protein [Mass/Vol] 7.8 g/dL 6.4-8.2 [facility] Sodium [Moles/Vol] 142 mmol/L 136-145 [facility] WBC (Bld) [#/Vol] 7.6 10*3/uL 4.4-11.0 [facility] Bilirubin Test strip Ql (U)O rdered By: Yandel Matute on 11-06-2022 Bilirubin Ql (U) Negative Negative [facility] Bilirubin Test strip Ql (U)O rdered By: Kam Ocampo on 11-06-2022 Bilirubin Ql (U) Negative Negative [facility] Blood erythrocytes count (nu mber/volume)Ordered By: Yandel Matute on 11-06-2022 RBC (Bld) [#/Vol] 3.19 10*6/uL 4.2-5.4 [facility] Blood erythrocytes count (nu mber/volume)Ordered By: Kam Ocampo on 11-06-2022 RBC (Bld) [#/Vol] 3.43 10*6/uL 4.2-5.4 [facility] Blood hemoglobin measurement (mass/volume)Ordered By: Yandel Matute on 11-06-2022 Hemoglobin (Bld) [Mass/Vol] 10.6 g/dL 12.0-15.0 [facility] Blood hemoglobin measurement (mass/volume)Ordered By: aKm Ocampo on 11-06-2022 Hemoglobin (Bld) [Mass/Vol] 11.4 g/dL 12.0-15.0 [facility] Blood lymphocytes/100 leukoc ytesOrdered By: Yandel Matute on 11-06-2022 Lymphocytes/100 WBC (Bld) 29.3 % 19-41 [facility] Blood monocytes/100 leukocyt esOrdered By: Yandel Matute on 11-06-2022 Monocytes/100 WBC (Bld) 7.4 % 0-10 [facility] Blood platelet mean volumeOr dered By: Yandel Matute on 11-06-2022 Platelet mean volume (Bld) [Entitic vol] 9.6 fL 6.2-12.0 [facility] Blood platelet mean volumeOr dered By: Kam Ocampo on 11-06-2022 Platelet mean volume (Bld) [Entitic vol] 9.3 fL 6.2-12.0 [facility] Culture, urineOrdered By: Dugan on 11-06-2022 Bacteria identified Cx Nom (U) Escherichia coli [facility] Bacteria identified Cx Nom (U) Escherichia coli [facility] Determination of erythrocyte mean corpuscular volume (MCV)Ordered By: Yandel Matute on 11-06-2022 MCV (RBC) [Entitic vol] 101.3 fL 81-99 [facility] Determination of erythrocyte mean corpuscular volume (MCV)Ordered By: Kam Ocampo on 11-06-2022 MCV (RBC) [Entitic vol] 102.0 fL 81-99 [facility] Hematocrit Auto (Bld) [Volum e fraction]Ordered By: Yandel Matute on 11-06-2022 Hematocrit (Bld) [Volume fraction] 32.3 % 37-47 [facility] Hematocrit Auto (Bld) [Volum e fraction]Ordered By: Kam Ocampo on 11-06-2022 Hematocrit (Bld) [Volume fraction] 35.0 % 37-47 [facility] INR in Blood by Coagulation assayOrdered By: Yandel Matute on 11-06-2022 INR Coag (Bld) [Relative time] 1.0 {INR} [facility] Ketones Test strip Ql (U)Ord ered By: Yandel Matute on 11-06-2022 Ketones Ql (U) Negative Negative [facility] Ketones Test strip Ql (U)Ord ered By: Kam Ocampo on 11-06-2022 Ketones Ql (U) Negative Negative [facility] - Chemistry and C hemistry - challengeOrdered By: Yandel Matute on 11-06-2022 CO2 [Moles/Vol] 34.0 mmol/L 21.0-32.0 [facility] Urea nitrogen/Creatinine [Mass ratio] 23.9 mg/mg 10 [facility] - Chemistry and C hemistry - challengeOrdered By: Kam Ocampo on 11-06-2022 ALP [Catalytic activity/Vol] 78 U/L 45-117 [facility] ALT [Catalytic activity/Vol] 33 U/L 13-56 [facility] CO2 [Moles/Vol] 35.0 mmol/L 21.0-32.0 [facility] Globulin (S) [Mass/Vol] 4.6 g/dL 2.2-4.2 [facility] Urea nitrogen/Creatinine [Mass ratio] 21.0 mg/mg 10- [facility] - CoagulationOrde red By: Yandel Matute on 11-06-2022 aPTT Coag (Bld) [Time] 25.3 s 24.1-36.2 [facility] PT Coag (PPP) [Time] 13.1 s 11.7-14.9 [facility] Laboratory - Hematology and Cell countsOrdered By: Yandel Matute on 11-06-2022 Erythrocyte distribution width (RBC) [Entitic vol] 50.0 fL 35.1-43.9 [facility] Erythrocyte distribution width (RBC) [Ratio] 13.6 % 11.6-14.6 [facility] Immature granulocytes/100 WBC (Bld) 0.500 % 0.0-0.9 [facility] Comment on above: IG% - Immature Granu locytes (promyelocytes, myelocytes and metamyelocytes) > 1% indicates that a LEFT SHIFT is Present. MCH (RBC) [Entitic mass] 33.2 pg 27.0-32.0 [facility] Nucleated RBC/100 WBC (Bld) [Ratio] 0 % 0-5 [facility] - Hematology and Cell countsOrdered By: Kam Ocampo on 11-06-2022 Erythrocyte distribution width (RBC) [Entitic vol] 51.1 fL 35.1-43.9 [facility] Erythrocyte distribution width (RBC) [Ratio] 13.7 % 11.6-14.6 [facility] MCH (RBC) [Entitic mass] 33.2 pg 27.0-32.0 [facility] [Mass/Vol]Or dered By: Yandel Matute on 11-06-2022 MCHC (RBC) [Mass/Vol] [facility] [Mass/Vol]Or dered By: Kam Ocampo on 11-06-2022 MCHC (RBC) [Mass/Vol] 32.6 g/dL 32-36 [facility] Mucus LM Ql (Urine sed)Order ed By: Yandel Matute on 11-06-2022 Mucus Ql (Urine sed) 0 SEEN /hpf [facility] Mucus LM Ql (Urine sed)Order ed By: Kam Ocampo on 11-06-2022 Mucus Ql (Urine sed) 0 SEEN /hpf [facility] Nitrite Test strip Ql (U)Ord ered By: Yandel Matute on 11-06-2022 Nitrite Ql (U) Negative Negative [facility] Nitrite Test strip Ql (U)Ord ered By: Kam Ocampo on 11-06-2022 Nitrite Ql (U) Negative Negative [facility] No Panel InformationOrdered By: Yandel Matute on 11-06-2022 Estimated Creatinine Clearance Calc 32.96 ml/min [facility] Estimated GFR (MDRD) Amer 78 mL/min >60 [facility] Comment on above: GFR Calc Estimated GFR (MDRD) Non-Af Amer 65 mL/min >60 [facility] Comment on above: Non- GFR Calc Troponin I High Sensitivity 6 pg/mL 3.0-54.0 [facility] Comment on above: Please Note: New Regi t Units and Gender Specific Reference Ranges. For more information see Policy Stat Procedure [place] High Sensitivity Troponin (TNIH) and attachments. No Panel InformationOrdered By: Kam Ocampo on 11-06-2022 Estimated GFR (MDRD) Amer 81 mL/min >60 [facility] Comment on above: GFR Calc Estimated GFR (MDRD) Non-Af Amer 67 mL/min >60 [facility] Comment on above: Non- GFR Calc Platelets bldOrdered By: Mehdi Matute on 11-06-2022 Platelets (Bld) [#/Vol] 240 10*3/uL 150-450 [facility] Platelets bldOrdered By: Aline Ocampo on 11-06-2022 Platelets (Bld) [#/Vol] 242 10*3/uL 150-450 [facility] Protein Test strip Ql (U)Ord ered By: Yandel Matute on 11-06-2022 Protein Ql (U) Negative Negative [facility] Protein Test strip Ql (U)Ord ered By: Kam Ocampo on 11-06-2022 Protein Ql (U) Negative Negative [facility] Serum or plasma albumin светлана urement (mass/volume)Ordered By: Kam Ocampo on 11-06-2022 Albumin [Mass/Vol] 3.2 g/dL 3.2-5.0 [facility] Serum or plasma albumin/glob ulin mass ratioOrdered By: Kam Ocampo on 11-06-2022 Albumin/Globulin [Mass ratio] 0.7 {ratio} 0.9-2.4 [facility] Serum or plasma calcium светлана urement (mass/volume)Ordered By: Yandel Matute on 11-06-2022 Calcium [Mass/Vol] 10.3 mg/dL 8.5-10.1 [facility] Serum or plasma calcium светлана urement (mass/volume)Ordered By: Kam Ocampo on 11-06-2022 Calcium [Mass/Vol] 10.1 mg/dL 8.5-10.1 [facility] Serum or plasma creatinine m easurement (mass/volume)Ordered By: Yandel Matute on 11-06-2022 Creatinine [Mass/Vol] 0.88 mg/dL 0.55-1.02 [facility] Comment on above: The validity of the calculated GFR & GFRAA in patients over 70 years has not been determined. Clinical correlation is essential. Serum or plasma creatinine m easurement (mass/volume)Ordered By: Kam Ocampo on 11-06-2022 Creatinine [Mass/Vol] 0.86 mg/dL 0.55-1.02 [facility] Comment on above: The validity of the calculated GFR & GFRAA in patients over 70 years has not been determined. Clinical correlation is essential. Serum or plasma urea nitroge n measurement (mass/volume)Ordered By: Yandel Matute on 11-06-2022 Urea nitrogen [Mass/Vol] 21 mg/dL 7-18 [facility] Serum or plasma urea nitroge n measurement (mass/volume)Ordered By: Kam Ocampo on 11-06-2022 Urea nitrogen [Mass/Vol] 18 mg/dL 7-18 [facility] Squamous epithelial cells de tection in urine sediment by light microscopyOrdered By: Yandel Matute on 11-06-2022 Epithelial cells.squamous LM Ql (Urine sed) 0 SEEN /hpf 5-10 [facility] Squamous epithelial cells de tection in urine sediment by light microscopyOrdered By: Kam Ocampo on 11-06-2022 Epithelial cells.squamous LM Ql (Urine sed) 0 SEEN /hpf 5-10 [facility] Thin prep Papanicolaou smear with manual screeningOrdered By: Yandel Matute on 11-06-2022 Thin prep Papanicolaou smear with manual screening 1 5-15 [facility] Thin prep Papanicolaou smear with manual screeningOrdered By: Kam Ocampo on 11-06-2022 Thin prep Papanicolaou smear with manual screening 18 U/L 15-37 [facility] Thin prep Papanicolaou smear with manual screening 3 5-15 [facility] Urine blood detectionOrdered By: Yandel Matute on 11-06-2022 RBC Ql (U) Negative Negative [facility] RBC Ql (U) 0 SEEN /hpf 0-5 [facility] Urine blood detectionOrdered By: Kam Ocampo on 11-06-2022 RBC Ql (U) 10 /ul Negative [facility] RBC Ql (U) 0 SEEN /hpf 0-5 [facility] Urine clarityOrdered By: Mehdi Matute on 11-06-2022 Clarity (U) Clear Clear [facility] Urine clarityOrdered By: Aline Ocampo on 11-06-2022 Clarity (U) Sl. Cloudy Clear [facility] Urine color determinationOrd ered By: Yandel Matute on 11-06-2022 Color (U) Yellow Yellow [facility] Urine color determinationOrd ered By: Kam Ocampo on 11-06-2022 Color (U) Yellow Yellow [facility] Urine glucose detectionOrder ed By: Yandel Matute on 11-06-2022 Glucose Ql (U) Normal mg/dl Normal [facility] Urine glucose detectionOrder ed By: Kam Ocampo on 11-06-2022 Glucose Ql (U) Normal mg/dl Normal [facility] Urine leukocyte esterase det ection by dipstickOrdered By: Yandel Matute on 11-06-2022 Leukocyte esterase Test strip Ql (U) 25 /ul Negative [facility] Urine leukocyte esterase det ection by dipstickOrdered By: Kam Ocampo on 11-06-2022 Leukocyte esterase Test strip Ql (U) 500 /ul Negative [facility] Urine pHOrdered By: Yandel butts on 11-06-2022 pH (U) 7.0 [pH] 5.0 - 8.0 [facility] Urine pHOrdered By: Kam barker on 11-06-2022 pH (U) 8.0 [pH] 5.0 - 8.0 [facility] Urine sediment bacteria coun t by microscopy (number/high power field)Ordered By: Yandel Matute on 11-06-2022 Bacteria LM.HPF (Urine sed) [#/Area] 0 /[HPF] None Seen [facility] Urine sediment bacteria coun t by microscopy (number/high power field)Ordered By: Kam Ocampo on 11-06-2022 Bacteria LM.HPF (Urine sed) [#/Area] 0 /[HPF] None Seen [facility] Urine specific gravity measu rementOrdered By: Yandel Matute on 11-06-2022 Specific gravity (U) [Rel density] 1.010 1.002-1.03 0 [facility] Urine specific gravity measu rementOrdered By: Kam Ocampo on 11-06-2022 Specific gravity (U) [Rel density] 1.010 1.002-1.03 0 [facility] Urobilinogen Auto test strip Ql (U)Ordered By: Yandel Matute on 11-06-2022 Urobilinogen Ql (U) Normal mg/dl Normal [facility] Urobilinogen Auto test strip Ql (U)Ordered By: Kam Ocampo on 11-06-2022 Urobilinogen Ql (U) Normal mg/dl Normal [facility] Basophil percentageOrdered B y: Hayden Daiz on 10-31-2022 Chloride [Moles/Vol] 108 mmol/L 98-107 [facility] Glucose [Mass/Vol] 95 mg/dL 74-106 [facility] Potassium [Moles/Vol] 3.8 mmol/L 3.5-5.1 [facility] Sodium [Moles/Vol] 141 mmol/L 136-145 [facility] WBC (Bld) [#/Vol] 7.6 10*3/uL 4.4-11.0 [facility] Blood erythrocytes count (nu mber/volume)Ordered By: Hayden Diaz on 10-31-2022 RBC (Bld) [#/Vol] 3.16 10*6/uL 4.2-5.4 [facility] Blood hemoglobin measurement (mass/volume)Ordered By: Hayden Diaz on 10-31-2022 Hemoglobin (Bld) [Mass/Vol] 10.5 g/dL 12.0-15.0 [facility] Blood platelet mean volumeOr dered By: Hayden Diaz on 10-31-2022 Platelet mean volume (Bld) [Entitic vol] 8.9 fL 6.2-12.0 [facility] Determination of erythrocyte mean corpuscular volume (MCV)Ordered By: Hayden Diaz on 10-31-2022 MCV (RBC) [Entitic vol] 103.5 fL 81-99 [facility] Hematocrit Auto (Bld) [Volum e fraction]Ordered By: Hayden Diaz on 10-31-2022 Hematocrit (Bld) [Volume fraction] 32.7 % 37-47 [facility] - Chemistry and C hemistry - challengeOrdered By: Hayden Diaz on 10-31-2022 CO2 [Moles/Vol] 32.0 mmol/L 21.0-32.0 [facility] Urea nitrogen/Creatinine [Mass ratio] 23.8 mg/mg 10-20 [facility] - Hematology and Cell countsOrdered By: Hayden Diaz on 10-31-2022 Erythrocyte distribution width (RBC) [Entitic vol] 51.9 fL 35.1-43.9 [facility] Erythrocyte distribution width (RBC) [Ratio] 13.4 % 11.6-14.6 [facility] MCH (RBC) [Entitic mass] 33.2 pg 27.0-32.0 [facility] MCHC Auto (RBC) [Mass/Vol]Or dered By: Hayden Diaz on 10-31-2022 MCHC (RBC) [Mass/Vol] 32.1 g/dL 32-36 [facility] No Panel InformationOrdered By: Hayden Diaz on 10-31-2022 Estimated Creatinine Clearance Calc 29.01 ml/min [facility] Estimated GFR (MDRD) Amer 99 mL/min >60 [facility] Comment on above: GFR Calc Estimated GFR (MDRD) Non-Af Amer 82 mL/min >60 [facility] Comment on above: Non- GFR Calc Platelets bldOrdered By: Yasmin Diaz on 10-31-2022 Platelets (Bld) [#/Vol] 195 10*3/uL 150-450 [facility] Serum or plasma calcium светлана urement (mass/volume)Ordered By: Hayden Diaz on 10-31-2022 Calcium [Mass/Vol] 8.6 mg/dL 8.5-10.1 [facility] Serum or plasma creatinine m easurement (mass/volume)Ordered By: Hayden Diaz on 10-31-2022 Creatinine [Mass/Vol] 0.72 mg/dL 0.55-1.02 [facility] Comment on above: The validity of the calculated GFR & GFRAA in patients over 70 years has not been determined. Clinical correlation is essential. Serum or plasma urea nitroge n measurement (mass/volume)Ordered By: Hayden Diaz on 10-31-2022 Urea nitrogen [Mass/Vol] 17 mg/dL 7-18 [facility] Thin prep Papanicolaou smear with manual screeningOrdered By: Hayden Diaz on 10-31-2022 Thin prep Papanicolaou smear with manual screening 1 5-15 [facility] Absolute lymphocyte countOrd ered By: Amalia Donahue on 10-30-2022 Lymphocytes Auto (Unsp spec) [#/Vol] 1.95 10*3/uL 0.83-4.51 [facility] Basophil percentageOrdered B y: Hayden Diaz on 10-30-2022 Basophil percentage 0 SEEN /hpf 0-5 [facility] Cholesterol [Mass/Vol] 94 mg/dL <200 [facility] Comment on above: <200 mg/dL Desirable 200-240 mg/dL Borderline >240 mg/dL High Risk Triglyceride [Mass/Vol] 72 mg/dL <199 [facility] Comment on above: The drugs N-Acetylcy steine and Metamizole may falsely depress this assay.Serum Triglycerides Reference Interval Normal <150 mg/dL Borderline high 150 - 199 mg/dL High 200 - 499 mg/dL Very High > or = 500 mg/dL Basophil percentageOrdered B y: Amalia Donahue on 10-30-2022 Basophils/100 WBC (Bld) 0.7 % 0-1 [facility] Chloride [Moles/Vol] 103 mmol/L 98-107 [facility] Eosinophils/100 WBC (Bld) 2.1 % 0-5 [facility] Glucose [Mass/Vol] 107 mg/dL 74-106 [facility] Comment on above: Fasting Glucose resu lt from 100 to 125 mg/dL suggests IMPAIRED HOMEOSTASIS per A.D.A. criteria. Neutrophils (Bld) [#/Vol] 3.2 10*3/uL 2.0-7.7 [facility] Neutrophils/100 WBC (Bld) 55.1 % 47-70 [facility] Potassium [Moles/Vol] 4.3 mmol/L 3.5-5.1 [facility] Comment on above: Slight Hemolysis, Re sult may be falsely increased. Sodium [Moles/Vol] 136 mmol/L 136-145 [facility] WBC (Bld) [#/Vol] 5.8 10*3/uL 4.4-11.0 [facility] Bilirubin Test strip Ql (U)O rdered By: Hayden Diaz on 10-30-2022 Bilirubin Ql (U) Negative Negative [facility] Blood erythrocytes count (nu mber/volume)Ordered By: Amalia Donahue on 10-30-2022 RBC (Bld) [#/Vol] 3.10 10*6/uL 4.2-5.4 [facility] Blood hemoglobin measurement (mass/volume)Ordered By: mAalia Donahue on 10-30-2022 Hemoglobin (Bld) [Mass/Vol] 10.1 g/dL 12.0-15.0 [facility] Blood lymphocytes/100 leukoc ytesOrdered By: Amalia Donahue on 10-30-2022 Lymphocytes/100 WBC (Bld) 33.7 % 19-41 [facility] Blood monocytes/100 leukocyt esOrdered By: Amalia Donahue on 10-30-2022 Monocytes/100 WBC (Bld) 8.1 % 0-10 [facility] Blood platelet mean volumeOr dered By: Amalia Donahue on 10-30-2022 Platelet mean volume (Bld) [Entitic vol] 9.2 fL 6.2-12.0 [facility] Determination of erythrocyte mean corpuscular volume (MCV)Ordered By: Amalia Donahue on 10-30-2022 MCV (RBC) [Entitic vol] 103.9 fL 81-99 [facility] Hematocrit Auto (Bld) [Volum e fraction]Ordered By: Amalia Donahue on 10-30-2022 Hematocrit (Bld) [Volume fraction] 32.2 % 37-47 [facility] INR in Blood by Coagulation assayOrdered By: Amalia Donahue on 10-30-2022 INR Coag (Bld) [Relative time] 1.0 {INR} [facility] Ketones Test strip Ql (U)Ord ered By: Hayden Diaz on 10-30-2022 Ketones Ql (U) Negative Negative [facility] - Chemistry and C hemistry - challengeOrdered By: Amalia Donahue on 10-30-2022 CO2 [Moles/Vol] 32.0 mmol/L 21.0-32.0 [facility] Urea nitrogen/Creatinine [Mass ratio] 27.0 mg/mg 10-20 [facility] - CoagulationOrde red By: Amalia Donahue on 10-30-2022 aPTT Coag (Bld) [Time] 27.1 s 24.1-36.2 [facility] PT Coag (PPP) [Time] 13.2 s 11.7-14.9 [facility] - Hematology and Cell countsOrdered By: Amalia Donahue on 10-30-2022 Erythrocyte distribution width (RBC) [Entitic vol] 52.5 fL 35.1-43.9 [facility] Erythrocyte distribution width (RBC) [Ratio] 13.6 % 11.6-14.6 [facility] Immature granulocytes/100 WBC (Bld) 0.300 % 0.0-0.9 [facility] Comment on above: IG% - Immature Granu locytes (promyelocytes, myelocytes and metamyelocytes) > 1% indicates that a LEFT SHIFT is Present. MCH (RBC) [Entitic mass] 32.6 pg 27.0-32.0 [facility] Nucleated RBC/100 WBC (Bld) [Ratio] 0 % 0-5 [facility] MCHC Auto (RBC) [Mass/Vol]Or dered By: Amalia Donahue on 10-30-2022 MCHC (RBC) [Mass/Vol] 31.4 g/dL 32-36 [facility] Mucus LM Ql (Urine sed)Order ed By: Hayden Diaz on 10-30-2022 Mucus Ql (Urine sed) 0 SEEN /hpf [facility] Nitrite Test strip Ql (U)Ord ered By: Hayden Diaz on 10-30-2022 Nitrite Ql (U) Negative Negative [facility] No Panel InformationOrdered By: Amalia Donahue on 10-30-2022 Estimated Creatinine Clearance Calc 34.02 ml/min [facility] Estimated GFR (MDRD) Amer 81 mL/min >60 [facility] Comment on above: GFR Calc Estimated GFR (MDRD) Non-Af Amer 67 mL/min >60 [facility] Comment on above: Non- GFR Calc Troponin I High Sensitivity 5 pg/mL 3.0-54.0 [facility] Comment on above: Please Note: New Regi t Units and Gender Specific Reference Ranges. For more information see Policy Stat Procedure [place] High Sensitivity Troponin (TNIH) and attachments. Platelets bldOrdered By: Loan Donahue on 10-30-2022 Platelets (Bld) [#/Vol] 195 10*3/uL 150-450 [facility] Protein Test strip Ql (U)Ord ered By: Hayden Diaz on 10-30-2022 Protein Ql (U) Negative Negative [facility] Serum or plasma calcium светлана urement (mass/volume)Ordered By: Amalia Donahue on 10-30-2022 Calcium [Mass/Vol] 8.7 mg/dL 8.5-10.1 [facility] Serum or plasma cholesterol in HDL measurement (mass/volume)Ordered By: Hayden Diaz on 10-30-2022 Cholesterol in HDL [Mass/Vol] 33 mg/dL >40 [facility] Comment on above: The drugs N-Acetylcy steine and Metamizole may falsely depress this assay. Reference Range HDL <40 mg/dL Low HDL Cholesterol HDL >or= 60 mg/dL High HDL Cholesterol Serum or plasma cholesterol in VLDL measurement (mass/volume)Ordered By: Hayden Diaz on 10-30-2022 Cholesterol in VLDL [Mass/Vol] 14 mg/dL 5-40 [facility] Serum or plasma creatinine m easurement (mass/volume)Ordered By: Amalia Donahue on 10-30-2022 Creatinine [Mass/Vol] 0.85 mg/dL 0.55-1.02 [facility] Comment on above: The validity of the calculated GFR & GFRAA in patients over 70 years has not been determined. Clinical correlation is essential. Serum or plasma low density lipoprotein (LDL) cholesterol measurement (mass/volume)Ordered By: Hayden Diaz on 10-30-2022 Cholesterol in LDL [Mass/Vol] 47 mg/dL 0-130 [facility] Serum or plasma urea nitroge n measurement (mass/volume)Ordered By: Amalia Donahue on 10-30-2022 Urea nitrogen [Mass/Vol] 23 mg/dL 7-18 [facility] Squamous epithelial cells de tection in urine sediment by light microscopyOrdered By: Hayden Diaz on 10-30-2022 Epithelial cells.squamous LM Ql (Urine sed) 0 SEEN /hpf 5-10 [facility] Thin prep Papanicolaou smear with manual screeningOrdered By: Amalia Donahue on 10-30-2022 Thin prep Papanicolaou smear with manual screening 1 5-15 [facility] Urine blood detectionOrdered By: Hayden Diaz on 10-30-2022 RBC Ql (U) Negative Negative [facility] RBC Ql (U) 0 SEEN /hpf 0-5 [facility] Urine clarityOrdered By: Yasmin Diaz on 10-30-2022 Clarity (U) Clear Clear [facility] Urine color determinationOrd ered By: Hayden Diaz on 10-30-2022 Color (U) Yellow Yellow [facility] Urine glucose detectionOrder ed By: Hayden Diaz on 10-30-2022 Glucose Ql (U) Normal mg/dl Normal [facility] Urine leukocyte esterase det ection by dipstickOrdered By: Hayden Diaz on 10-30-2022 Leukocyte esterase Test strip Ql (U) Negative Negative [facility] Urine pHOrdered By: Reginaldo Diaz on 10-30-2022 pH (U) 8.0 [pH] 5.0 - 8.0 [facility] Urine sediment bacteria coun t by microscopy (number/high power field)Ordered By: Hayden Diaz on 10-30-2022 Bacteria LM.HPF (Urine sed) [#/Area] 0 /[HPF] None Seen [facility] Urine specific gravity measu rementOrdered By: Hayden Diaz on 10-30-2022 Specific gravity (U) [Rel density] 1.010 1.002-1.03 0 [facility] Urobilinogen Auto test strip Ql (U)Ordered By: Hayden Diaz on 10-30-2022 Urobilinogen Ql (U) Normal mg/dl Normal [facility] Whole blood hemoglobin A1c/t otal hemoglobin ratio (mass fraction)Ordered By: Hayden Diaz on 10-30-2022 HbA1c (Bld) [Mass fraction] 5.5 % 3.8-5.6 [facility] Comment on above: Normal < 5.7 % [...] mouth daily Electrocardiogram 12 Lead; Status:Active; Requested for:27Oct2022; Osteoporosis Stop: Oscal 500/200 D-3 TABS Unlinked Stop: Iron 325 MG TABS History of Present Illness Mrs Judge is an 87 year old female with anemia, mitral regurg, rheumatic fever as a child, hypothyroidism, hypertension, hyperlipidemia, [place] CAD, CABG and then an angioplasty after CABG, carotid artery disease, CVA, CKD, chronic colitis, osteoporosis, insomnia and peripheral neuropathy, here for an acute visit for a syncopal event. She reports that she was admitted to the hospital for pneumonia with respiratory failure for 7 days. She is now under going rehab in [facility] and is now on continuous [...] by Problem List Migration; 2012-04-06; Moved to [facility] Jan 01 2013 4:07PM Medicare annual [...] Non-Q-wave Myocardial Infarction - Initial Care ([place]) (410.71) Added by Problem List Migration; 2012-08-06 History of Arthritis (V13.4) History of Atherosclerotic heart disease of [place] coronary artery with unspecified angina pectoris (414.01,413.9) [...] by Proble (more content not included)... Normal [employer] BASIC METABOLIC PANELon 09-0 Anion gap [Moles/Vol] -2 mmol/L Low 3-13 [facility] Comment on above: Performed By: #### L AB15 ####[employer] Insurance Claim Examiner: REINA FARIA ([id number])[facility] ([facility])[address] [place] [address] Calcium [Mass/Vol] 8.5 mg/dL Normal 8.4-10.4 [facility] Comment on above: Performed By: #### L AB15 ####[place] Insurance Claim Examiner: REINA FARIA ([id number])[facility] [facility])[address] Chloride [Moles/Vol] 102 mmol/L Normal 98-107 [facility] Comment on above: Performed By: #### L [id number] ####Marine Insurance Claim Examiner: REINA FARIA ([id number])[facility] ([facility])[address] [place] [address] CO2 [Moles/Vol] 37 mmol/L High 22-30 [facility] Comment on above: Performed By: #### L [id number] ####Marine Insurance Claim Examiner: REINA FARIA ([id number])[facility] ([facility])[address] Creatinine [Mass/Vol] 0.71 mg/dL Normal 0.52-1.04 [facility] Comment on above: Performed By: #### L [id number] ####Marine Insurance Claim Examiner: REINA FARIA ([id number])[facility] [place] [address] [place] GLOMERULAR FILTRATION RATE ML/MIN/1.73 SQ M.PREDICTED 82.9 mL/min/1.73m*2 Normal >60.0 [facility] Comment on above: Result Comment: Calc ulation based on the Chronic Kidney Disease Epidemiology Collaboration (CKD-EPI) equation refit without adjustment for race Performed By: #### L [id number] ####Marine Insurance Claim Examiner: REINA FARIA ([id number])[facility] ([facility])[address] Glucose [Mass/Vol] 99 mg/dL Normal 70-100 [facility] Comment on above: Performed By: #### L [id number] ####Marine Insurance Claim Examiner: REINA FARIA ([id number])[facility] ([facility])[address] Potassium [Moles/Vol] 4.0 mmol/L Normal 3.5-5.1 [facility] Comment on above: Performed By: #### L [id number] ####Marine Insurance Claim Examiner: REINA FARIA ([id number])[facility] ([facility])[address] [place] [address] [place] Sodium [Moles/Vol] 137 mmol/L Normal 135-145 [facility] Comment on above: Performed By: #### L [id number] ####Marine Insurance Claim Examiner: REINA FARIA ([id number])[facility] ([facility])[address] [place] [address] [place] Urea nitrogen [Mass/Vol] 15 mg/dL Normal 7-17 [facility] Comment on above: Performed By: #### L [id number] ####Marine Insurance Claim Examiner: REINA FARIA ([id number])[facility] ([facility])[address] [place] [address] Basic metabolic 1998 panelon 10-16-2022 Anion gap [Moles/Vol] -2 mmol/L Low 3 - 13 mmol/L [facility] Calcium [Mass/Vol] 8.5 mg/dL 8.4 - 10. 4 mg/dL [facility] Chloride [Moles/Vol] 102 mmol/L 98 - 10 7 mmol/L [facility] CO2 [Moles/Vol] 37 mmol/L High 22 - 30 mmol/L [facility] Creatinine [Mass/Vol] 0.71 mg/dL 0.52 - 1.04 mg/dL [facility] GFR/1.73 sq M.predicted MDRD (S/P/Bld) [Vol rate/Area] 82.9 mL/min/{1.73_m2} - PINF [facility] Comment on above: Calculation based on the Chronic Kidney Disease Epidemiology Collaboration (CKD-EPI) equation refit without adjustment for race Glucose [Mass/Vol] 99 mg/dL 70 - 100 mg/dL [facility] Interpretation and review of laboratory results Abnormal [facility] Potassium [Moles/Vol] 4.0 mmol/L 3.5 - 5.1 mmol/L [facility] Sodium [Moles/Vol] 137 mmol/L 135 - 145 mmol/L [facility] Urea nitrogen [Mass/Vol] 15 mg/dL 7 - 17 mg/dL [facility] CARECOORDon 10-16-2022 [place] Patient Choice Patient Name: KATHERINE JUDGE Date of : 1935 All Providers Sent Referral Name: [facility] Phone: [phone] Address: [address] [place] [address] Name: [facility] Phone: [phone] Address: [facility] [place] [address] Name: [facility] Address: [address] [place] Discharge med list transmitted to [facility] via Careport per TCC request. 7000 was entered into InsideView for the SNF- Facility is aware. Normal [facility] CBC W Auto Differential pane l (Bld)on 10-16-2022 Basophils (Bld) [#/Vol] 0.0 10*3/uL 0.0 - 0.2 10*3/uL [facility] Basophils/100 WBC (Bld) 0.8 % 0.0 - 2.0 % [facility] Eosinophils (Bld) [#/Vol] 0.2 10*3/uL 0.0 - 0.5 10*3/uL [facility] Eosinophils/100 WBC (Bld) 4.6 % 1.0 - 6.0 % [facility] Erythrocyte distribution width (RBC) [Ratio] 13.4 % 11.5 - 14.5 % [facility] Hematocrit (Bld) [Volume fraction] 32.8 % Low 35.0 - 47.0 % [facility] Hemoglobin (Bld) [Mass/Vol] 11.1 g/dL Low 11.7 - 16.0 g/dL [facility] Interpretation and review of laboratory results Abnormal [facility] Lymphocytes (Bld) [#/Vol] 1.5 10*3/uL 1.0 - 4.3 10*3/uL [facility] Lymphocytes/100 WBC (Bld) 28.1 % 20.0 - 40.0 % [facility] MCH (RBC) [Entitic mass] 34.3 pg High 26.0 - 34.0 pg [facility] MCHC (RBC) [Mass/Vol] 33.8 % 32.0 - 36.0 % [facility] MCV (RBC) [Entitic vol] 101.5 fL High 80.0 - 98.0 fL [facility] Monocytes (Bld) [#/Vol] 0.5 10*3/uL 0.0 - 0.8 10*3/uL [facility] Monocytes/100 WBC (Bld) 9.7 % 2.0 - 10.0 % [facility] Neutrophils (Bld) [#/Vol] 3.1 10*3/uL 1.8 - 7.0 10*3/uL [facility] Neutrophils/100 WBC (Bld) 56.8 % 40.0 - 80.0 % [facility] Nucleated RBC/100 WBC (Bld) [Ratio] 0.0 % [facility] Platelet mean volume (Bld) [Entitic vol] 6.9 fL Low 7.4 - 12.4 fL [facility] Platelets (Bld) [#/Vol] 232 10*3/uL 140 - 440 10*3/uL [facility] RBC (Bld) [#/Vol] 3.23 10*6/uL Low 3.8 - 5.20 10*6/uL [facility] WBC (Bld) [#/Vol] 5.5 10*3/uL 3.6 - 10.7 10*3/uL [facility] CBC WITH AUTO DIFFERENTIALon 10-16-2022 Basophils (Bld) [#/Vol] 0.0 10*3/uL Normal 0.0-0.2 [facility] Comment on above: Performed By: #### L [id number] #### Marine Insurance Claim Examiner: REINA FARIA ([id number]) [facility] ([facility]) [address] Basophils/100 WBC (Bld) 0.8 % Normal 0.0-2.0 [facility] Comment on above: Performed By: #### L [id number] #### Marine Insurance Claim Examiner: REINA FARIA ([id number]) [facility] ([facility]) [address] Eosinophils (Bld) [#/Vol] 0.2 10*3/uL Normal 0.0-0.5 [facility] Comment on above: Performed By: #### L [id number] #### Marine Insurance Claim Examiner: REINA FARIA ([id number]) [facility] [place] ([facility]) [address] Eosinophils/100 WBC (Bld) 4.6 % Normal 1.0-6.0 [facility] Comment on above: Performed By: #### L [id number] #### Marine Insurance Claim Examiner: REINA FARIA ([id number]) [facility] [address] Erythrocyte distribution width (RBC) [Ratio] 13.4 % Normal 11.5-14.5 [facility] Comment on above: Performed By: #### L [id number] #### Marine Insurance Claim Examiner: REINA FARIA ([id number]) [facility] ([facility]) [address] ERYTHROCYTE MEAN CORPUSCULAR HEMOGLOBIN CONCENTRATION (G/DL) BY AUTOMATED 33.8 % Normal 32.0-36.0 [facility] Comment on above: Performed By: #### L [id number] #### Marine Insurance Claim Examiner: REINA FARIA ([id number]) [facility] ([facility]) [address] Hematocrit (Bld) [Volume fraction] 32.8 % Low 35.0-47.0 [facility] Comment on above: Performed By: #### L [id number] #### Marine Insurance Claim Examiner: REINA FARIA ([id number]) [facility] ([facility] [address] Hemoglobin (Bld) [Mass/Vol] 11.1 g/dL Low 11.7-16.0 [facility] Comment on above: Performed By: #### L [id number] #### Marine Insurance Claim Examiner: REINA FARIA ([id number]) [facility] [address] Lymphocytes (Bld) [#/Vol] 1.5 10*3/uL Normal 1.0-4.3 [facility] Comment on above: Performed By: #### L [id number] #### Marine Insurance Claim Examiner: REINA FARIA ([id number]) [facility] ([facility]) [address] [place] [address] [place] Lymphocytes/100 WBC (Bld) 28.1 % Normal 20.0-40.0 [facility] Comment on above: Performed By: #### L [id number] #### Marine Insurance Claim Examiner: REINA FARIA ([id number]) [facility] ([facility]) [address] [place] [address] [place] MCH (RBC) [Entitic mass] 34.3 pg High 26.0-34.0 [facility] Comment on above: Performed By: #### L [id number] #### Marine Insurance Claim Examiner: REINA FARIA ([id number]) [facility] [place] ([facility]) [address] MCV (RBC) [Entitic vol] 101.5 fL High 80.0-98.0 [facility] Comment on above: Performed By: #### L [id number] #### Marine Insurance Claim Examiner: REINA FARIA ([id number]) [facility] ([facility]) [address] [place] [address] [place] Monocytes (Bld) [#/Vol] 0.5 10*3/uL Normal 0.0-0.8 [facility] Comment on above: Performed By: #### L [id number] #### Marine Insurance Claim Examiner: REINA FARIA ([id number]) [facility] ([facility]) [address] Monocytes/100 WBC (Bld) 9.7 % Normal 2.0-10.0 [facility] Comment on above: Performed By: #### L [id number] #### Marine Insurance Claim Examiner: REINA FARIA ([id number]) [facility] ([facility]) [address] [place] [address] [place] Neutrophils (Bld) [#/Vol] 3.1 10*3/uL Normal 1.8-7.0 [facility] Comment on above: Performed By: #### L [id number] #### Marine Insurance Claim Examiner: REINA FARIA ([id number]) [facility] ([facility]) [address] [place] [address] [place] Neutrophils/100 WBC (Bld) 56.8 % Normal 40.0-80.0 [facility] Comment on above: Performed By: #### L [id number] #### Marine Insurance Claim Examiner: REINA FARIA ([id number]) [facility] ([facility]) [address] NRBC (PER 100 WBCS) BY AUTOMATED COUNT 0.0 /100 WBCs Normal 0.0-2.0 [facility] Comment on above: Performed By: #### L [id number] #### Marine Insurance Claim Examiner: REINA FARIA ([id number]) [facility] [address] Platelet mean volume (Bld) [Entitic vol] 6.9 fL Low 7.4-12.4 [facility] Comment on above: Performed By: #### L [id number] #### Marine Insurance Claim Examiner: REINA FARIA ([id number]) [facility] ([facility]) [address] PLATELETS (10*3/UL) IN BLOOD AUTOMATED COUNT 232 10*3/uL Normal 140-440 [facility] Comment on above: Performed By: #### L [id number] #### Marine Insurance Claim Examiner: REINA FARIA ([id number]) [facility] [address] RBC (Bld) [#/Vol] 3.23 10*6/uL Low 3.8-5.20 [facility] Comment on above: Performed By: #### L [id number] #### Marine Insurance Claim Examiner: REINA FARIA ([id number]) [facility] [address] WBC (Bld) [#/Vol] 5.5 10*3/uL Normal 3.6-10.7 [facility] Comment on above: Performed By: #### L [id number] #### Marine Insurance Claim Examiner: REINA FARIA ([id number]) [facility] [address] SARS-CoV-2 (COVID-19) Ag IA. rapid Ql (Resp)Ordered By: Lala Barber on 10-16-2022 Interpretation and review of laboratory results Normal [facility] SARS-CoV-2 AntigenOrdered By : Lala Barber on 10-16-2022 SARS-CoV-2 (COVID-19) Ag IA.rapid Ql (Resp) Negative Negative [facility] Comment on above: A negative result do es not rule out the possibility of SARS-CoV-2 infection. NAAT-based methods should be considered for symptomatic patients presenting greater than seven days after onset of symptoms. Method: Lateral flow immunoassay. Fact sheets for healthcare providers and patients can be found at the following sites: https://www.[employer] [place].gov/media/820093/download https://www.[employer] [place].gov/media/615713/download Basic metabolic 1998 panelon 10-15-2022 Anion gap [Moles/Vol] 1 mmol/L Low 3 - 13 mmol/L [facility] Calcium [Mass/Vol] 8.3 mg/dL Low 8.4 - 10. 4 mg/dL [facility] Chloride [Moles/Vol] 103 mmol/L 98 - 10 7 mmol/L [facility] CO2 [Moles/Vol] 35 mmol/L High 22 - 30 mmol/L [facility] Creatinine [Mass/Vol] 0.61 mg/dL 0.52 - 1.04 mg/dL [facility] GFR/1.73 sq M.predicted MDRD (S/P/Bld) [Vol rate/Area] 87.2 mL/min/{1.73_m2} - PINF [facility] Comment on above: Calculation based on the Chronic Kidney Disease Epidemiology Collaboration (CKD-EPI) equation refit without adjustment for race Glucose [Mass/Vol] 106 mg/dL High 70 - 100 mg/dL [facility] Interpretation and review of laboratory results Abnormal [facility] Potassium [Moles/Vol] 4.2 mmol/L 3.5 - 5.1 mmol/L [facility] Sodium [Moles/Vol] 140 mmol/L 135 - 145 mmol/L [facility] Urea nitrogen [Mass/Vol] 11 mg/dL 7 - 17 mg/dL [facility] CARECOORDon 10-15-2022 [place] Spoke with Lesley at [facility] & they can accept pt on 10/16. Notified pt & she asked TCC to follow up with her son. Notified son & he is agreeable.Notified attending, RN & DIRECTOR SUPPLY via secure chat. Normal [facility] CBC W Auto Differential pane l (Bld)on 10-15-2022 Basophils (Bld) [#/Vol] 0.0 10*3/uL 0.0 - 0.2 10*3/uL [facility] Basophils/100 WBC (Bld) 0.6 % 0.0 - 2.0 % [facility] Eosinophils (Bld) [#/Vol] 0.2 10*3/uL 0.0 - 0.5 10*3/uL [facility] Eosinophils/100 WBC (Bld) 2.2 % 1.0 - 6.0 % [facility] Erythrocyte distribution width (RBC) [Ratio] 13.6 % 11.5 - 14.5 % [facility] Hematocrit (Bld) [Volume fraction] 32.4 % Low 35.0 - 47.0 % [facility] Hemoglobin (Bld) [Mass/Vol] 10.8 g/dL Low 11.7 - 16.0 g/dL [facility] Interpretation and review of laboratory results Abnormal [facility] Lymphocytes (Bld) [#/Vol] 1.2 10*3/uL 1.0 - 4.3 10*3/uL [facility] Lymphocytes/100 WBC (Bld) 17.3 % Low 20.0 - 40.0 % [facility] MCH (RBC) [Entitic mass] 34.1 pg High 26.0 - 34.0 pg [facility] MCHC (RBC) [Mass/Vol] 33.5 % 32.0 - 36.0 % [facility] MCV (RBC) [Entitic vol] 101.6 fL High 80.0 - 98.0 fL [facility] Monocytes (Bld) [#/Vol] 0.6 10*3/uL 0.0 - 0.8 10*3/uL [facility] Monocytes/100 WBC (Bld) 8.5 % 2.0 - 10.0 % [facility] Neutrophils (Bld) [#/Vol] 5.0 10*3/uL 1.8 - 7.0 10*3/uL [facility] Neutrophils/100 WBC (Bld) 71.4 % 40.0 - 80.0 % [facility] Nucleated RBC/100 WBC (Bld) [Ratio] 0.0 % [email or web address] [facility] Platelet mean volume (Bld) [Entitic vol] 7.0 fL Low 7.4 - 12.4 fL [facility] Platelets (Bld) [#/Vol] 223 10*3/uL 140 - 440 10*3/uL [facility] RBC (Bld) [#/Vol] 3.18 10*6/uL Low 3.8 - 5.20 10*6/uL [facility] WBC (Bld) [#/Vol] 7.1 10*3/uL 3.6 - 10.7 10*3/uL [facility] Progress Noteon 10-15-2022 Progress Note Nutrition Assessment [...] assess Fluid Accumulation: No significant fluid accumulation Acid Patroller Strength: Not Performed Nutrition Assessment: Pt is very pleasant, appeared in no distress this afternoon with visitor at bedside. Pt's diet was advanced to solids today- GI [place], low fiber. Pt reported that she ordered [...] (kg): 49.4 kg Total Energy Requirements (kcals/day): 0567-7787 (30-35 kcal/kg CBW) Weight Used for Protein [...] 110# UBW) % Weight Change (Calculated): -4.5 [place] Body Weight (lbs) (Calculated): 100 lbs [place] Body Weight (Kg) (Calculated): 45 kg % [place] Body Weight (Calculated): 105 % BMI (kg/m2) [...] Oral Nutrition Supplement Brittni Javed RD Contact: *[phone] or via Secure Chat Normal [facility] Basic metabolic 1998 panelon 10-14-2022 Anion gap [Moles/Vol] -1 mmol/L Low 3 - 13 mmol/L [facility] Calcium [Mass/Vol] 8.0 mg/dL Low 8.4 - 10. 4 mg/dL [facility] Chloride [Moles/Vol] 108 mmol/L High 98 - 10 7 mmol/L [facility] CO2 [Moles/Vol] 33 mmol/L High 22 - 30 mmol/L [facility] Creatinine [Mass/Vol] 0.71 mg/dL 0.52 - 1.04 mg/dL [facility] GFR/1.73 sq M.predicted MDRD (S/P/Bld) [Vol rate/Area] 82.9 mL/min/{1.73_m2} - PINF [facility] Comment on above: Calculation based on the Chronic Kidney Disease Epidemiology Collaboration (CKD-EPI) equation refit without adjustment for race Glucose [Mass/Vol] 92 mg/dL 70 - 100 mg/dL [facility] Interpretation and review of laboratory results Abnormal [facility] Potassium [Moles/Vol] 4.2 mmol/L 3.5 - 5.1 mmol/L [facility] Sodium [Moles/Vol] 139 mmol/L 135 - 145 mmol/L [facility] Urea nitrogen [Mass/Vol] 15 mg/dL 7 - 17 mg/dL [facility] CARECOORDon 10-14-2022 [facility] Care Managment [facility] Assessment Date: 10/14/2022 Patient Name: Katherine Judge : 1935 Patient Information Source of Information: Patient Cognition/Language: WFL - Within Functional Limits Permission given to speak with patient pharmaceutical service representative/caregiver as indicated: Yes (Ganga Judge, son, ) Confirmation of Payer with patient/family: Yes Payer Name: Medicare : No (Spouse is a [employer]. Made referral to [employer]) Confirmation of [...] Living Prescription Coverage: Yes Pharmacy Used: [facility] [place] Medication Management: Independent Transportation/Shopping: Independent [...] Information: Chart reviewed. Patient admitted to [facility] for treatment of Proctocolitis. Full liquid diet. PT/OT recommends SNF. Met with patient at bedside. Explained role. She is very pleasant. 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 Reports her son is helpful and lives 20 minutes away. Independent with adls. She does not drive. +PCP, +RX cov, +DME. Discussed SNF. Patient interested. But, wants to discuss with son first. Served Medicare Choice listing. No insurance authorization required to admit to SNF. DC plan: TBD Home with Home care vs SNF Tasked RAGINI perez to follow Remy Whitney RN Normal [facility] CBC W Auto Differential pane l (Bld)Ordered By: Chaya Cook on 10-14-2022 Basophils (Bld) [#/Vol] 0.1 10*3/uL 0.0 - 0.2 10*3/uL [facility] Basophils/100 WBC (Bld) 1.0 % 0.0 - 2.0 % [facility] Eosinophils (Bld) [#/Vol] 0.2 10*3/uL 0.0 - 0.5 10*3/uL [facility] Eosinophils/100 WBC (Bld) 3.3 % 1.0 - 6.0 % [facility] Erythrocyte distribution width (RBC) [Ratio] 13.4 % 11.5 - 14.5 % [facility] Hematocrit (Bld) [Volume fraction] 31.0 % Low 35.0 - 47.0 % [facility] Hemoglobin (Bld) [Mass/Vol] 10.4 g/dL Low 11.7 - 16.0 g/dL [facility] Interpretation and review of laboratory results Abnormal [facility] Lymphocytes (Bld) [#/Vol] 1.4 10*3/uL 1.0 - 4.3 10*3/uL [facility] Lymphocytes/100 WBC (Bld) 22.5 % 20.0 - 40.0 % [facility] MCH (RBC) [Entitic mass] 34.3 pg High 26.0 - 34.0 pg [facility] MCHC (RBC) [Mass/Vol] 33.7 % 32.0 - 36.0 % [facility] MCV (RBC) [Entitic vol] 101.5 fL High 80.0 - 98.0 fL [facility] Monocytes (Bld) [#/Vol] 0.6 10*3/uL 0.0 - 0.8 10*3/uL [facility] Monocytes/100 WBC (Bld) 9.9 % 2.0 - 10.0 % [facility] Neutrophils (Bld) [#/Vol] 4.0 10*3/uL 1.8 - 7.0 10*3/uL [facility] Neutrophils/100 WBC (Bld) 63.3 % 40.0 - 80.0 % [facility] Nucleated RBC/100 WBC (Bld) [Ratio] 0.0 % [facility] Platelet mean volume (Bld) [Entitic vol] 7.0 fL Low 7.4 - 12.4 fL [facility] Platelets (Bld) [#/Vol] 213 10*3/uL 140 - 440 10*3/uL [facility] RBC (Bld) [#/Vol] 3.05 10*6/uL Low 3.8 - 5.20 10*6/uL [facility] WBC (Bld) [#/Vol] 6.3 10*3/uL 3.6 - 10.7 10*3/uL [facility] Progress Noteon 10-14-2022 Progress Note Occupational Therapy Facility/Department: [facility] 2E Occupational Therapy Initial Evaluation NAME: Katherine Judge : 1935 Date of Service: 10/14/2022 Discharge Recommendations: [facility] OT Equipment Recommendations Equipment Needed: No [...] assistance Functional Mobility Comments: Pt ambualting with SYSTEMS ARCHITECT and min A for balance short distance to/from [facility]. No true LOB noted however pt [...] LE Dress (more content not included)... Normal [facility] XR Abdomen Single viewon FINDINGS/IMPRESSION: [...] Electronically Signed Date/Time: 10/14/2022 12:15 PM EDT [facility] Patient Name: KATHERINE SIMON : 1935 Exam Date/Time: 10/14/2022 08:50 Procedure: XR ABDOMEN 1 VIEW Ordering Provider: VINES JEFFREY Reason For Exam: CONSTIPATION CLINICAL INDICATION: Constipation. TECHNIQUE: AP view of the abdomen COMPARISON: Chest radiographs previous day, CT 10/10/2022 [facility] Frances Norton MD - 10/14/2022 [...] Electronically Signed Date/Time: 10/14/2022 12:15 PM EDT [facility] Radiology Study observation (narrative) [employer] XR Abdomen Single viewOrdere d By: Frances oNrton on 10-14-2022 [employer] Work Phone: Bacteria identified Aer cx N om (Lower resp)Ordered By: Tobi Lim on 10-13-2022 Gram Stain Result Moderate Epithelial cells per low power field Abnormal [facility] Gram Stain Result Few Polymorphonuclea r leukocytes per low power field Abnormal [facility] Gram Stain Result Negative Abnormal [facility] Interpretation and review of laboratory results Abnormal [facility] Basic metabolic 1998 panelon 10-13-2022 Anion gap [Moles/Vol] 1 mmol/L Low 3 - 13 mmol/L [facility] Calcium [Mass/Vol] 8.2 mg/dL Low 8.4 - 10. 4 mg/dL [facility] Chloride [Moles/Vol] 110 mmol/L High 98 - 10 7 mmol/L [facility] CO2 [Moles/Vol] 28 mmol/L 22 - 30 mmol/L [facility] Creatinine [Mass/Vol] 0.90 mg/dL 0.52 - 1.04 mg/dL [facility] GFR/1.73 sq M.predicted MDRD (S/P/Bld) [Vol rate/Area] 62.4 mL/min/{1.73_m2} - PINF [facility] Comment on above: Calculation based on the Chronic Kidney Disease Epidemiology Collaboration (CKD-EPI) equation refit without adjustment for race Glucose [Mass/Vol] 95 mg/dL 70 - 100 mg/dL [facility] Interpretation and review of laboratory results Abnormal [facility] Potassium [Moles/Vol] 4.5 mmol/L 3.5 - 5.1 mmol/L [facility] Sodium [Moles/Vol] 138 mmol/L 135 - 145 mmol/L [facility] Urea nitrogen [Mass/Vol] 20 mg/dL High 7 - 17 mg/dL [facility] CBC W Auto Differential pane l (Bld)Ordered By: Va Joe on 10-13-2022 Basophils (Bld) [#/Vol] 0.0 10*3/uL 0.0 - 0.2 10*3/uL [facility] Basophils/100 WBC (Bld) 0.4 % 0.0 - 2.0 % [facility] Eosinophils (Bld) [#/Vol] 0.2 10*3/uL 0.0 - 0.5 10*3/uL [facility] Eosinophils/100 WBC (Bld) 2.4 % 1.0 - 6.0 % [facility] Erythrocyte distribution width (RBC) [Ratio] 13.8 % 11.5 - 14.5 % [facility] Hematocrit (Bld) [Volume fraction] 29.3 % Low 35.0 - 47.0 % [facility] Hemoglobin (Bld) [Mass/Vol] 9.8 g/dL Low 11.7 - 16.0 g/dL [facility] Interpretation and review of laboratory results Abnormal [facility] Lymphocytes (Bld) [#/Vol] 1.6 10*3/uL 1.0 - 4.3 10*3/uL [facility] Lymphocytes/100 WBC (Bld) 20.5 % 20.0 - 40.0 % [facility] MCH (RBC) [Entitic mass] 33.9 pg 26.0 - 34.0 pg [facility] MCHC (RBC) [Mass/Vol] 33.4 % 32.0 - 36.0 % [facility] MCV (RBC) [Entitic vol] 101.4 fL High 80.0 - 98.0 fL [facility] Monocytes (Bld) [#/Vol] 0.6 10*3/uL 0.0 - 0.8 10*3/uL [facility] Monocytes/100 WBC (Bld) 7.7 % 2.0 - 10.0 % [facility] Neutrophils (Bld) [#/Vol] 5.4 10*3/uL 1.8 - 7.0 10*3/uL [facility] Neutrophils/100 WBC (Bld) 69.0 % 40.0 - 80.0 % [facility] Nucleated RBC/100 WBC (Bld) [Ratio] 0.0 % [facility] Platelet mean volume (Bld) [Entitic vol] 7.2 fL Low 7.4 - 12.4 fL [facility] Platelets (Bld) [#/Vol] 201 10*3/uL 140 - 440 10*3/uL [facility] RBC (Bld) [#/Vol] 2.88 10*6/uL Low 3.8 - 5.20 10*6/uL [facility] WBC (Bld) [#/Vol] 7.8 10*3/uL 3.6 - 10.7 10*3/uL [facility] Respiratory culture and Stai nOrdered By: Tobi Lim on 10-13-2022 Bacteria identified Aer cx Nom (Lower resp) Few respiratory harrison present. [facility] X[facility] Chest 2 Viewson See findings. Report Dictated on Electronically Signed By: Xavier Bender MD Electronically Signed Date/Time: 10/13/2022 2:02 PM EDT [facility] Patient Name: KATHERINE SIMON : 1935 [...] pneumothorax. Osseous structures: No acute osseous abnormality. [facility] Xavier Bender MD - 10/13/2022 Patient Name: [...] Electronically Signed Date/Time: 10/13/2022 2:02 PM EDT [facility] Radiology Study observation (narrative) [email or web address] XR Chest 2 ViewsOrdered By: Xavier Bender on 10-13-2022 [email or web address] Work Phone: Basic metabolic 1998 panelon 10-12-2022 Anion gap [Moles/Vol] 6 mmol/L 3 - 13 mmol/L [facility] Calcium [Mass/Vol] 7.9 mg/dL Low 8.4 - 10. 4 mg/dL [facility] Chloride [Moles/Vol] 110 mmol/L High 98 - 10 7 mmol/L [facility] CO2 [Moles/Vol] 25 mmol/L 22 - 30 mmol/L [facility] Creatinine [Mass/Vol] 0.97 mg/dL 0.52 - 1.04 mg/dL [facility] GFR/1.73 sq M.predicted MDRD (S/P/Bld) [Vol rate/Area] 57.0 mL/min/{1.73_m2} Low - PINF [facility] Comment on above: Calculation based on the Chronic Kidney Disease Epidemiology Collaboration (CKD-EPI) equation refit without adjustment for race Glucose [Mass/Vol] 107 mg/dL High 70 - 100 mg/dL [facility] Interpretation and review of laboratory results Abnormal [facility] Potassium [Moles/Vol] 4.4 mmol/L 3.5 - 5.1 mmol/L [facility] Sodium [Moles/Vol] 141 mmol/L 135 - 145 mmol/L [facility] Urea nitrogen [Mass/Vol] 21 mg/dL High 7 - 17 mg/dL [facility] CBC W Auto Differential pane l (Bld)Ordered By: Sylvain Rogers on 10-12-2022 Basophils (Bld) [#/Vol] 0.0 10*3/uL 0.0 - 0.2 10*3/uL [facility] Basophils/100 WBC (Bld) 0.4 % 0.0 - 2.0 % [facility] Eosinophils (Bld) [#/Vol] 0.0 10*3/uL 0.0 - 0.5 10*3/uL [facility] Eosinophils/100 WBC (Bld) 0.1 % Low 1.0 - 6.0 % [facility] Erythrocyte distribution width (RBC) [Ratio] 13.7 % 11.5 - 14.5 % [facility] Hematocrit (Bld) [Volume fraction] 30.0 % Low 35.0 - 47.0 % [facility] Hemoglobin (Bld) [Mass/Vol] 10.1 g/dL Low 11.7 - 16.0 g/dL [facility] Interpretation and review of laboratory results Abnormal [facility] Lymphocytes (Bld) [#/Vol] 1.5 10*3/uL 1.0 - 4.3 10*3/uL [facility] Lymphocytes/100 WBC (Bld) 11.9 % Low 20.0 - 40.0 % [facility] MCH (RBC) [Entitic mass] 34.7 pg High 26.0 - 34.0 pg [facility] MCHC (RBC) [Mass/Vol] 33.7 % 32.0 - 36.0 % [facility] MCV (RBC) [Entitic vol] 103.0 fL High 80.0 - 98.0 fL [facility] Monocytes (Bld) [#/Vol] 0.9 10*3/uL High 0.0 - 0.8 10*3/uL [facility] Monocytes/100 WBC (Bld) 6.9 % 2.0 - 10.0 % [facility] Neutrophils (Bld) [#/Vol] 9.9 10*3/uL High 1.8 - 7.0 10*3/uL [facility] Neutrophils/100 WBC (Bld) 80.7 % High 40.0 - 80.0 % [facility] Nucleated RBC/100 WBC (Bld) [Ratio] 0.0 % [facility] Platelet mean volume (Bld) [Entitic vol] 7.1 fL Low 7.4 - 12.4 fL [facility] Platelets (Bld) [#/Vol] 205 10*3/uL 140 - 440 10*3/uL [facility] RBC (Bld) [#/Vol] 2.91 10*6/uL Low 3.8 - 5.20 10*6/uL [facility] WBC (Bld) [#/Vol] 12.3 10*3/uL High 3.6 - 10.7 10*3/uL [facility] Consulton 10-12-2022 Consult Vancomycin therapy h as been discontinued by Dr. Tobar on 10-12-22. Thank you for the consult. Pharmacy signing off for vancomycin dosing. Marilu Whitaker [facility], Date: 10/12/22 Time: 12:14 PM Normal [facility] Progress Noteon 10-12-2022 Progress Note Physical Therapy Facility/Department: [address] Physical Therapy Initial Evaluation NAME: Katherine Judge : 1935 Date of Service: 10/12/2022 Discharge Recommendations: [facility], Continue to assess pending progress PT [...] supine<->sit, sc (more content not included)... Normal [facility] Progress Note Nutrition Assessment Type and Reason [...] assess Fluid Accumulation: No significant fluid accumulation Acid Patroller Strength: Not Performed Nutrition Assessment: 87 year old woman with PMHx: CAD, colitis, hypothyroidism. Presented to [facility] with worsening abdominal pain (achy and crampy). 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 [facility] W Auto Differential pane l (Bld)Ordered By: Juvenal Lei on 10-11-2022 Basophils (Bld) [#/Vol] 0.0 10*3/uL 0.0 - 0.2 10*3/uL [email or web address] Basophils/100 WBC (Bld) 0.2 % 0.0 - 2.0 % [email or web address] Eosinophils (Bld) [#/Vol] 0.0 10*3/uL 0.0 - 0.5 10*3/uL [email or web address] Eosinophils/100 WBC (Bld) 0.3 % Low 1.0 - 6.0 % [email or web address] Erythrocyte distribution width (RBC) [Ratio] 14.1 % 11.5 - 14.5 % [email or web address] Hematocrit (Bld) [Volume fraction] 36.6 % 35.0 - 47.0 % [email or web address] Hemoglobin (Bld) [Mass/Vol] 11.8 g/dL 11.7 - 16.0 g/dL [facility] Interpretation and review of laboratory results Abnormal [email or web address] Lymphocytes (Bld) [#/Vol] 1.4 10*3/uL 1.0 - 4.3 10*3/uL [email or web address] Lymphocytes/100 WBC (Bld) 9.1 % Low 20.0 - 40.0 % [facility] MCH (RBC) [Entitic mass] 32.9 pg 26.0 - 34.0 pg [facility] MCHC (RBC) [Mass/Vol] 32.2 % 32.0 - 36.0 % [facility] MCV (RBC) [Entitic vol] 102.1 fL High 80.0 - 98.0 fL [facility] Monocytes (Bld) [#/Vol] 1.0 10*3/uL High 0.0 - 0.8 10*3/uL [facility] Monocytes/100 WBC (Bld) 6.8 % 2.0 - 10.0 % [facility] Neutrophils (Bld) [#/Vol] 12.7 10*3/uL High 1.8 - 7.0 10*3/uL [facility] Neutrophils/100 WBC (Bld) 83.6 % High 40.0 - 80.0 % [facility] Nucleated RBC/100 WBC (Bld) [Ratio] 0.0 % [facility] Platelet mean volume (Bld) [Entitic vol] 7.1 fL Low 7.4 - 12.4 fL [facility] Platelets (Bld) [#/Vol] 195 10*3/uL 140 - 440 10*3/uL [facility] RBC (Bld) [#/Vol] 3.59 10*6/uL Low 3.8 - 5.20 10*6/uL [facility] WBC (Bld) [#/Vol] 15.1 10*3/uL High 3.6 - 10.7 10*3/uL [facility] Comprehensive metabolic 1998 panelon 10-11-2022 Albumin [Mass/Vol] 3.1 g/dL Low 3.5 - 5.0 g/dL [facility] ALP [Catalytic activity/Vol] 85 U/L 38 - 126 U/L [facility] ALT [Catalytic activity/Vol] 12 U/L 0 - 34 U/L [facility] Anion gap [Moles/Vol] 4 mmol/L 3 - 13 mmol/L [facility] AST [Catalytic activity/Vol] 21 U/L 15 - 46 U/L [facility] Bilirubin [Mass/Vol] 0.8 mg/dL 0.2 - 1 .3 mg/dL [facility] Calcium [Mass/Vol] 8.2 mg/dL Low 8.4 - 10. 4 mg/dL [employer] Chloride [Moles/Vol] 107 mmol/L 98 - 10 7 mmol/L [employer] CO2 [Moles/Vol] 28 mmol/L 22 - 30 mmol/L [email or web address] Creatinine [Mass/Vol] 0.72 mg/dL 0.52 - 1.04 mg/dL [email or web address] GFR/1.73 sq M.predicted MDRD (S/P/Bld) [Vol rate/Area] 81.5 mL/min/{1.73_m2} - PINF [email or web address] Comment on above: Calculation based on the Chronic Kidney Disease Epidemiology Collaboration (CKD-EPI) equation refit without adjustment for race Glucose [Mass/Vol] 86 mg/dL 70 - 100 mg/dL [facility] Interpretation and review of laboratory results Abnormal [employer] Potassium [Moles/Vol] 4.0 mmol/L 3.5 - 5.1 mmol/L [email or web address] Protein [Mass/Vol] 6.0 g/dL Low 6.3 - 8.2 g/dL [facility] Sodium [Moles/Vol] 140 mmol/L 135 - 145 mmol/L [facility] Urea nitrogen [Mass/Vol] 17 mg/dL 7 - 17 mg/dL [facility] [facility] ECG 12 leadOrdered By: Gomez Cooney on 10-11-2022 Heart rate 107 /min bpm [employer] Work Phone: P [place] 17 degrees [place] Phone: DC Interval 134 ms [place] Phone: QRS [place] 122 degrees [place] Phone: QRSD Interval 150 ms [place] Phone: QT Interval 391 ms [employer] Work Phone: QTC Interval 506 ms [place] Phone: T Wave [place] -42 degrees [place] Phone: [place] Phone: ECG 12 leadon 10-11-2022 Sinus tachycardia ra te 107 Paired ventricular premature complexes RBBB and LPFB Lateral ST depression QT prolongation No previous ECG available for comparison Electronically Signed On 10-11-2022 10:41:31 EDT by Martín Pedraza, DO - 10/11/2022 IMPRESSION: Sinus tachycardia rate 107 Paired ventricular premature complexes RBBB and LPFB Lateral ST depression QT prolongation No previous ECG available for comparison Electronically Signed On 10-11-2022 10:41:31 EDT by Martín Cooney [facility] ECG 12-LEADon 10-11-2022 ECG 12-LEAD IMPRESSION: Sinus tachycardia rate 107 Paired ventricular premature complexes RBBB and LPFB Lateral ST depression QT prolongation No previous ECG available for comparison Electronically Signed On 10-11-2022 10:41:31 EDT by Martín Cooney Normal [facility] IDNon 10-11-2022 IDN The patient [...] these barriers include encourage fluids . Normal [facility] Legionella and Streptococcus Urine AntigenOrdered By: Vaibhav Londono on 10-11-2022 Interpretation and review of laboratory results Normal [facility] Legionella pneumophila Ag Not detected Not Detected [facility] Streptococcus pneumoniae Ag Not detected Not Detected [facility] Methodology: Lateral flow enzyme immunoassay This assay is approved for detection of antigens to Streptococcus pneumoniae and Legionella pneumophila serogroup 1; however, other L. pneumophila serogroups may also be detected. [facility] Procalcitonin Teston 023 Procalcitonin [Mass/Vol] 0.14 ng/mL High 0.00 - 0.09 ng/mL [facility] Procalcitonin [Mass/Vol]on 0 10-11-2022 Interpretation and review of laboratory results Abnormal [facility] PCT <0.50 = Low risk of severe sepsis and/or septic shock. PCT >2.00 = High risk of severe sepsis and/or septic shock. [facility] Progress Noteon 10-11-2022 Progress Note Attempted two IV sta rts, call HOME [employer]ORATION SERVICE SUPERVISOR to place for antibiotics. 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 Normal [facility] Respiratory pathogens DNA an d RNA panel ALTHEA+non-probe (Lower resp)Ordered By: Fela Calvo on 10-11-2022 Acinetobacter baumannii complex Not detected Not Detected [facility] Adenovirus Not detected Not Detected [facility] Chlamydia pneumoniae Not detected Not Detected [facility] Enterobacter cloacae complex Not detected Not Detected [facility] Escherichia coli Not detected Not Detected [facility] FLUAV RNA ALTHEA+non-probe Ql (Lower resp) Not detected Not Detected [facility] FLUBV RNA ALTHEA+non-probe Ql (Lower resp) Not detected Not Detected [facility] Haemophilus influenzae Not detected Not Detected [facility] Human Metapneumovirus Not detected Not Detected [facility] Human Rhinovirus/Enteroviru s Not detected Not Detected [facility] Interpretation and review of laboratory results Normal [facility] Klebsiella (Enterobacter) aerogenes Not detected Not Detected [facility] Klebsiella oxytoca Not detected Not Detected [facility] Klebsiella pneumoniae Not detected Not Detected [facility] Legionella pneumophila Not detected Not Detected [facility] Moraxella catarrhalis Not detected Not Detected [facility] Mycoplasma pneumoniae Not detected Not Detected [facility] Parainfluenza virus Not detected Not Detected [facility] Proteus spp Not detected Not Detected [facility] Pseudomonas aeruginosa Not detected Not Detected [facility] RSV RNA ALTHEA+probe Ql (Resp) Not detected Not Detected [facility] S. agalactiae Org specific cx Ql (Vag fld) Not detected Not Detected [facility] SARS-CoV-2 (COVID-19) RNA ALTHEA+probe Ql (Unsp spec) Not detected Not Detected [facility] SARS-CoV-2 (COVID-19) RNA ALTHEA+probe Ql (Unsp spec) Methodology: Multiplex PCR This panel does not test for SARS-CoV-2 (Covid-19). The following antimicrobial resistance gene is reported if the appropriate organism is detected: mecA. The following antimicrobial resistance genes are reported if detected and the appropriate organisms are detected: CTX-M, IMP, KPC, NDM, OXA-48-like, and VIM. [facility] Serratia marcescens Not detected Not Detected [facility] Staphylococcus aureus Not detected Not Detected [facility] Streptococcus pneumoniae Not detected Not Detected [facility] Streptococcus pyogenes Not detected Not Detected [facility] Vancomycin, randomon 023 Interpretation and review of laboratory results Abnormal [facility] Vancomycin [Mass/Vol] 12.5 ug/mL Low 15.0 - 20.0 ug/mL [facility] XR CHEST 1 VIEWon 10-11-2022 XR CHEST 1 VIEW [facility] Name: [facility] 1935 [id number] Exam Date/Time: 10/11/2022 08:49 Procedure: XR CHEST [...] 11:27 AM EDT Pt c/o sob Normal [facility] XR Chest Single viewon 10-11 Chronic interstitial changes with bilateral basilar atelectasis or scarring. No focal consolidations digitally seen. There is a very large hiatal hernia noted on a CT from 10/10/2022, difficult to visualize on this single film. Report Dictated on Electronically Signed By: Ranjeet Huerta MD Electronically Signed Date/Time: 10/11/2022 11:27 AM EDT [facility] Patient Name: KATHERINE SIMON : 1935 [...] degenerative changes of the spine and shoulders. [facility] Ranjeet Huerta MD - 10/11/2022 Patient Name: [...] Electronically Signed Date/Time: 10/11/2022 11:27 AM EDT [facility] Radiology Study observation (narrative) [facility] XR Chest Single viewOrdered By: Ranjeet Huerta on 10-11-2022 [facility] Work Phone: Basic metabolic 1998 panelon 10-10-2022 Anion gap [Moles/Vol] 8 mmol/L 3 - 13 mmol/L [facility] Calcium [Mass/Vol] 8.9 mg/dL 8.4 - 10. 4 mg/dL [facility] Chloride [Moles/Vol] 103 mmol/L 98 - 10 7 mmol/L [facility] CO2 [Moles/Vol] 30 mmol/L 22 - 30 mmol/L [facility] Creatinine [Mass/Vol] 0.94 mg/dL 0.52 - 1.04 mg/dL [facility] GFR/1.73 sq M.predicted MDRD (S/P/Bld) [Vol rate/Area] 59.2 mL/min/{1.73_m2} Low - PINF [facility] Comment on above: Calculation based on the Chronic Kidney Disease Epidemiology Collaboration (CKD-EPI) equation refit without adjustment for race Glucose [Mass/Vol] 110 mg/dL High 70 - 100 mg/dL [facility] Potassium [Moles/Vol] 4.1 mmol/L 3.5 - 5.1 mmol/L [facility] Sodium [Moles/Vol] 142 mmol/L 135 - 145 mmol/L [facility] Urea nitrogen [Mass/Vol] 22 mg/dL High 7 - 17 mg/dL [facility] CBC W Auto Differential pane l (Bld)Ordered By: Rivka Tipton on 10-10-2022 Basophils (Bld) [#/Vol] 0.0 10*3/uL 0.0 - 0.2 10*3/uL [facility] Basophils/100 WBC (Bld) 0.1 % 0.0 - 2.0 % [facility] Eosinophils (Bld) [#/Vol] 0.0 10*3/uL 0.0 - 0.5 10*3/uL [facility] Eosinophils/100 WBC (Bld) 0.1 % Low 1.0 - 6.0 % [facility] Erythrocyte distribution width (RBC) [Ratio] 14.2 % 11.5 - 14.5 % [facility] Hematocrit (Bld) [Volume fraction] 37.3 % 35.0 - 47.0 % [facility] Hemoglobin (Bld) [Mass/Vol] 12.6 g/dL 11.7 - 16.0 g/dL [facility] Interpretation and review of laboratory results Abnormal [facility] Lymphocytes (Bld) [#/Vol] 1.3 10*3/uL 1.0 - 4.3 10*3/uL [facility] Lymphocytes/100 WBC (Bld) 7.6 % Low 20.0 - 40.0 % [facility] MCH (RBC) [Entitic mass] 34.5 pg High 26.0 - 34.0 pg [facility] MCHC (RBC) [Mass/Vol] 33.9 % 32.0 - 36.0 % [facility] MCV (RBC) [Entitic vol] 102.0 fL High 80.0 - 98.0 fL [facility] Monocytes (Bld) [#/Vol] 1.0 10*3/uL High 0.0 - 0.8 10*3/uL [facility] Monocytes/100 WBC (Bld) 5.8 % 2.0 - 10.0 % [facility] Neutrophils (Bld) [#/Vol] 14.6 10*3/uL High 1.8 - 7.0 10*3/uL [facility] Neutrophils/100 WBC (Bld) 86.4 % High 40.0 - 80.0 % [facility] Nucleated RBC/100 WBC (Bld) [Ratio] 0.0 % [facility] Platelet mean volume (Bld) [Entitic vol] 7.2 fL Low 7.4 - 12.4 fL [facility] Platelets (Bld) [#/Vol] 217 10*3/uL 140 - 440 10*3/uL [facility] RBC (Bld) [#/Vol] 3.65 10*6/uL Low 3.8 - 5.20 10*6/uL [facility] WBC (Bld) [#/Vol] 16.9 10*3/uL High 3.6 - 10.7 10*3/uL [facility] COVID-19, Flu A/B, and RSV C omboon 10-10-2022 FLUAV RNA ALTHEA+probe Ql (Resp) Not detected Not Detected [facility] FLUBV RNA ALTHEA+probe Ql (Resp) Not detected Not Detected [facility] Interpretation and review of laboratory results Normal [facility] RSV RNA ALTHEA+probe Ql (Resp) Not detected Not Detected [facility] SARS-CoV-2 (COVID-19) RNA ALTHEA+probe Ql (Resp) Not detected Not Detected [facility] SARS-CoV-2 (COVID-19) RNA ALTHEA+probe Ql (Unsp spec) Methodology: real-time, RT-PCR The SARS-CoV-2, Flu A/B, and RSV Combo assay is intended for in vitro diagnostic use under the FDA Emergency Use Authorization (EUA). This test has not been FDA cleared or approved. In compliance with this authorization, please visit www.fda.gov/media/842368/messi nload or www.fda.gov/media/302386/messi nload to access the applicable information sheets. [facility] CT ABDOMEN PELVIS W CONTRAST on [...] to 1 cm in diameter, similar to 202. Spleen: Not enlarged. Pancreas: Pancreatic tail extends [...] intrahepatic and extrahepatic biliary dilatation, similar to 2021. Consider correlation with laboratory evaluation for evidence of obstructive pathology. Report Dictated on Electronically Signed By: Jos Rizo DR Electronically Signed Date/Time: 10/10/2022 5:13 PM EDT Pt states since last night she had right sided abd pain that moved to the left side. Pt states today she started to cough as well. Normal [facility] CT Abdomen and Pelvis W cont rast [...] DR Electronically Signed Date/Time: 10/10/2022 5:13 PM [facility] Patient Name: [facility]ATHER[facility] SIM[facility] 1935 [id number] Exam Date/Time: 10/10/2022 16:52 Procedure: CT ABDOMEN [...] moderate central canal and neural foraminal narrowing. 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 year [...] the consult. Will continue to follow. Normal [facility] ED Nursing Noteon 10-10-2022 ED Nursing Note Guided family back Lavinia Jenikns, EMT 10/10/22 1419 Normal [facility] ED Provider Noteon 3 ED Provider Note Emergency Department Encounter [facility] ED Patient: Katherine Judge : 1935 Date [...] for clarification.) Evelin Salcedo DO Acute Care [facility] Evelin Salcedo DO 10/10/222130 [facility] ED Provider Note EMERGENCY DEPARTMENT ENCOUNTER [...] Culture. Procedure Abnormality Status --------- ------ Complete Urinalysis[[id number]] Please view results for these tests on the individual orders. (more content not included)... Normal [facility] Hepatic function 2000 panelo n 10-10-2022 Albumin [Mass/Vol] 3.4 g/dL Low 3.5 - 5.0 g/dL [facility] ALP [Catalytic activity/Vol] 88 U/L 38 - 126 U/L [facility] ALT [Catalytic activity/Vol] 14 U/L 0 - 34 U/L [facility] AST [Catalytic activity/Vol] 24 U/L 15 - 46 U/L [facility] Bilirubin [Mass/Vol] 1.0 mg/dL 0.2 - 1 .3 mg/dL [facility] Bilirubin.conjugated [Mass/Vol] 0.0 mg/dL 0.0 - 0.3 mg/dL [facility] Protein [Mass/Vol] 7.0 g/dL 6.3 - 8.2 g/dL [facility] IDNon 10-10-2022 IDN The patient is Moder [...] barriers include continue current care plan. Normal [facility]S Lactic acid, sepsis, with re flex if elevatedon 10-10-2022 Interpretation and review of laboratory results Normal [facility] Lactate [Moles/Vol] 0.9 mmol/L 0.7 - 2. 0 mmol/L [facility] Lipaseon 10-10-2022 Lipase [Catalytic activity/Vol] 25 U/L 23 - 300 U/L [facility] Lipase [Catalytic activity/V ol]on 10-10-2022 Interpretation and review of laboratory results Normal [facility] No Panel Informationon 10-10 Interpretation and review of laboratory results Abnormal [facility] Urinalysis complete panel (U )Ordered By: Argelia Wood on 10-10-2022 Bacteria LM.HPF (Urine sed) [#/Area] Negative Negative /HPF [facility] Bilirubin Ql (U) Negative Negative mg/dL [facility] Clarity (U) Clear Clear [facility] Color (U) Yellow Lt. Yellow [facility] Epithelial cells.squamous LM.HPF (Urine sed) [#/Area] 0-2 [facility] Glucose Ql (U) Normal Normal (<70) mg/dL [facility] Hemoglobin Ql (U) 0.03 mg/dL Abnormal Negative [facility] Hyaline casts Auto (Urine sed) [#/Area] 6-10 Abnormal Negative /LPF [facility] Interpretation and review of laboratory results Abnormal [facility] Ketones (U) [Mass/Vol] Trace Abnormal Negative mg/dL [facility] Leukocyte esterase Test strip Ql (U) Negative Negative Roxann/uL [facility] Mucus LM.HPF (Urine sed) [#/Area] Few Negative /LPF [facility] Nitrite Ql (U) Negative Negative [facility] pH (U) 5.5 [pH] 5.0 - 8.0 pH [facility] Protein (U) [Mass/Vol] 30 mg/dL Abnormal Negative [facility] RBC LM.HPF (Urine sed) [#/Area] 0-2 [facility] Specific gravity (U) [Rel density] 1.018 1.005 - 1.030 [facility] Urobilinogen (U) [Mass/Vol] Normal Normal (0-1) mg/dL [facility] WBC LM.HPF (Urine sed) [#/Area] 3-5 [facility] Blood Pressure Cuff Sizeon 0 09-11-2022 Tobacco use status HS b) No [facility] [address] [place] Work [...] prolapse) Echocardiogram; Status:Hold For - Scheduling; Requested for:11Sep2022; PMH: History of hypertension Renew: Metoprolol Tartrate 50 MG Oral Tablet; TAKE 1 TABLET EVERY 12 HOURS DAILY PMH: History of hypokalemia Renew: Potassium Chloride ER 10 MEQ Oral Capsule Extended Release; TAKE 2 CAPSULES BY MOUTH DAILY History of Present Illness Mrs Judge is an 87 year old female with anemia, mitral regurg, rheumatic fever as a child, hypothyroidism, hypertension, hyperlipidemia, [place],m CAD, CABG and then an angioplasty after [...] by Problem List Migration; 2012-04-06; Moved to [facility] Jan 01 2013 4:07PM Medicare annual [...] Non-Q-wave Myocardial Infarction - Initial Care ([place]) (410.71) Added by Problem List Migration; 2012-08-06 History of Arthritis (V13.4) History of Atherosclerotic heart disease of [place] coronary artery with unspecified angina pectoris (414.01,413.9) [...] tx with Levaquin. COMPARISON: 05/30/2022 ACCESSION NUMBER(S): [id number] ORDERING CLINICIAN: CHRIST URIBE TECHNIQUE: FINDINGS: Heart [...] fractures. Electronically signed by: GIORGI MULLER MD [facility] Office Visit (Cardiology)on 06-12-2022 Follow-up visit Diagnoses/Problems Assessed CAD (coronary artery disease) (414.00) (I25.10) Pneumonia, bacterial (482.9) (J15.9) History of Present Illness 06/12/22: Mrs Judge is an 87 year old female with anemia, mitral regurg, rheumatic fever as a child, hypothyroidism, hypertension, hyperlipidemia, [place] CAD, CABG and then an angioplasty after [...] fever as a child, hypothyroidism, hypertension, hyperlipidemia, [place],m CAD, CABG and then an angioplasty after [...] fever as a child, hypothyroidism, hypertension, hyperlipidemia, [place],m CAD, CABG and then an angioplasty after [...] a PMH of anemia, hypothyroidism, hypertension, hyperlipidemia, [place], CAD, CABG, then an angioplasty after CABG, [...] by Problem List Migration; 2012-04-06; Moved to [facility] Jan 01 2013 4:07PM Medicare annual [...] Knee Replacemen (more content not included)... Normal [facility] Tobacco Screening.on 023 Fall risk assessment b) One or more fall s in the last year [facility]-Cardioemory [facility] [address] [place] Work Phone: Tobacco use status CPHS b) No [facility] [address] [place] Work Phone: XR Chest 2 Viewson 3 Possible focus of ne w right lower lobe pneumonia. Large hiatal hernia again noted. Numerous vertebral compression fractures. [facility] Interpreted By: HEIDI CHANEL MD Patient Name: KATHERINE JUDGE STUDY: TH CHEST 2 VIEW PA AND LAT INDICATION: hypoxia; no chest pain, no cough. COMPARISON: October 09, 2017 ACCESSION NUMBER(S): [id number] ORDERING CLINICIAN: CHRIST URIBE FINDINGS: Cardiomegaly with median sternotomy unchanged. Large hiatal hernia. Possible new patchy right basilar airspace opacity which could be a component of pneumonia. Numerous vertebral compression fractures again noted. [facility] Heidi Muller MD - 05/31/2022 Interpreted By: HEIDI MULLER MD Patient Name: KATHERINE JUDGE STUDY: TH CHEST 2 VIEW PA AND LAT INDICATION: hypoxia; no chest pain, no cough. COMPARISON: October 09, 2017 ACCESSION NUMBER(S): [id number] ORDERING CLINICIAN: CHRIST URIBE FINDINGS: Cardiomegaly with median sternotomy unchanged. Large hiatal hernia. Possible new patchy right basilar airspace opacity which could be a component of pneumonia. Numerous vertebral compression fractures again noted. IMPRESSION: Possible focus of new right lower lobe pneumonia. Large hiatal hernia again noted. Numerous vertebral compression fractures. [facility] Work Phone: XR Chest 2 ViewsOrdered By: Heidi Muller on 05-31-2022 [facility] Work Phone: BASIC METABOLIC PANELon 05-11 Anion gap [Moles/Vol] 13 mmol/L Normal 10 - 20 [facility] Comment on above: Performed By: #### B MP #### [facility] [address] [place] [address] Calcium [Mass/Vol] 10.2 mg/dL Normal 8.6 - 10.6 [facility] Comment on above: Performed By: #### B MP #### [facility] [address] [place] [address] Chloride [Moles/Vol] 105 mmol/L Normal 98 - 107 [facility] Comment on above: Performed By: #### B MP #### [facility] [address] [place] [address] Creatinine [Mass/Vol] 0.93 mg/dL Normal 0.50 - 1.05 [facility] Comment on above: Performed By: #### B MP #### [facility] [address] [place] [address] GFR/1.73 sq M.predicted among non-blacks MDRD (S/P/Bld) [Vol rate/Area] 60 mL/min/{1.73_m2} Normal >90 [facility] Comment on above: Result Comment: CALC ULATIONS OF ESTIMATED GFR ARE PERFORMED USING THE 2020 CKD-EPI STUDY REFIT EQUATION WITHOUT THE RACE VARIABLE FOR THE IDMS-TRACEABLE CREATININE METHODS. https://jasn.asnjournals.org/content/early/ASN.497968 9419 Performed By: #### B MP #### [facility] [address] [place] [address] Glucose [Mass/Vol] 84 mg/dL Normal 74 - 99 [facility] Comment on above: Performed By: #### B MP #### [facility] [address] [place] [address] HCO3 (Bld) [Moles/Vol] 31 mmol/L Normal 21 - 32 [facility] Comment on above: Performed By: #### B MP #### [facility] [address] [place] [address] Potassium [Moles/Vol] 4.2 mmol/L Normal 3.5 - 5.3 [facility] Comment on above: Performed By: #### B MP #### [facility] [address] [place] [address] Sodium [Moles/Vol] 145 mmol/L Normal 136 - 145 [facility] Comment on above: Performed By: #### B MP #### [facility] [address] [place] [address] Urea nitrogen [Mass/Vol] 22 mg/dL Normal 6 - 23 [facility] Comment on above: Performed By: #### B MP #### [facility] [address] [place] [address] CBCon 05-30-2022 Erythrocyte distribution width (RBC) [Ratio] 14.7 % High 11.5 - 14.5 [facility] Comment on above: Performed By: #### C BC ####[id number] [place] [address] Hematocrit (Bld) [Volume fraction] 41.1 % Normal 36.0 - 46.0 [facility] Comment on above: Performed By: #### C BC ####[id number] [place] [address] Hemoglobin (Bld) [Mass/Vol] 13.0 g/dL Normal 12.0 - 16.0 [facility] Comment on above: Performed By: #### C BC ####[id number] [place] [address] MCHC (RBC) [Mass/Vol] 31.6 g/dL Low 32.0 - 36.0 [facility] Comment on above: Performed By: #### C BC ####[id number] [place] [address] MCV (RBC) [Entitic vol] 106 fL High 80 - 100 [facility] Comment on above: Performed By: #### C BC ####[id number] [place] [address] NUCLEATED RBC 0.3 /100 WBC Normal 0.0-0.0 [facility] Comment on above: Performed By: #### C BC ####[id number] [place] [address] Platelets (Bld) [#/Vol] 234 10*3/uL Normal 150 - 450 [facility] Comment on above: Performed By: #### C BC ####[id number] [place] [address] RBC 3.87 x10E12/L Low 4.00 - 5.20 [facility] Comment on above: Performed By: #### C BC ####[id number] [place] [address] WBC (Bld) [#/Vol] 7.0 10*3/uL Normal 4.4 - 11.3 [facility] Comment on above: Performed By: #### C BC ####[id number] [place] [address] CHEST 2 VIEW PA AND LATon CHEST 2 VIEW PA AND LAT Patient Name: KATHERINE JUDGE STUDY: TH CHEST 2 VIEW PA AND LAT INDICATION: hypoxia; no chest pain, no cough. COMPARISON: October 09, 2017 ACCESSION NUMBER(S): [id number] ORDERING CLINICIAN: CHRIST URIBE FINDINGS: Cardiomegaly with median sternotomy unchanged. Large hiatal hernia. Possible new patchy right basilar airspace opacity which could be a component of pneumonia. Numerous vertebral compression fractures again noted. IMPRESSION: Possible focus of new right lower lobe pneumonia. Large hiatal hernia again noted. Numerous vertebral compression fractures. Electronically signed by: HEIDI MULLER MD Normal [facility] LIPID PANEL (CORONARY RISK 2 )on 05-30-2022 Cholesterol [Mass/Vol] 158 mg/dL Normal 0 - 199 [facility] Comment on above: Result Comment: . [...] Performed By: #### L IPID #### [facility] [address] [place] [address] Cholesterol in HDL [Mass/Vol] 47.3 mg/dL Normal [facility] Comment on above: Result Comment: . AGE VERY LOW LOW NORMAL HIGH 0-19 Y < 35 < 40 40-45 ---- 20-24 Y ---- < 40 >45 ---- >24 Y ---- < 40 40-60 >60 . Performed By: #### L IPID #### [facility] [address] [place] [address] Cholesterol in LDL [Mass/Vol] 84 mg/dL Normal 0 - 99 [facility] Comment on above: Result Comment: . NEAR BORD AGE DESIRABLE OPTIMAL HIGH HIGH VERY HIGH 0-19 Y 0 - 109 --- 110-129 >/= 130 ---- 20-24 Y 0 - 119 --- 120-159 >/= 160 ---- >24 Y 0 - 99 100-129 130-159 160-189 >/=190 . Performed By: #### L IPID #### [facility] [address] [place] [address] Cholesterol in VLDL [Mass/Vol] 27 mg/dL Normal 0 - 40 [facility] Comment on above: Performed By: #### L IPID #### [facility] [address] [place] [address] Cholesterol.total/Cho lesterol in HDL [Mass ratio] 3.3 {ratio} Normal [facility] Comment on above: Result Comment: REF VALUES DESIRABLE < 3.4 HIGH RISK > 5.0 Performed By: #### L IPID #### [facility] [address] [place] [address] Triglyceride [Mass/Vol] 135 mg/dL Normal 0 - 149 [facility] Comment on above: Result Comment: . [...] Performed By: #### L IPID #### [facility] [address] [place], [place] MAGNESIUMon 05-30-2022 Magnesium [Mass/Vol] 2.26 mg/dL Normal 1.60 - 2.40 [facility] Comment on above: Performed By: #### M G #### [facility] [address] [place], [place] PHOSPHORUSon 05-30-2022 Phosphate [Mass/Vol] 3.3 mg/dL Normal 2.5 - 4.9 [facility] Comment on above: Result Comment: The performance characteristics of phosphorus testing in heparinized plasma have been validated by the individual laboratory site where testing is performed. Testing on heparinized plasma is not approved by the FDA; however, such approval is not necessary. Performed By: #### P HOS #### [facility] [address] [place], [place] Radiologyon 05-30-2022 XR Chest 2 Views Normal [facility]-Cardi olo gy-[place] [address] [place] Work Phone: VITAMIN D, 25-HYDROXYon 05-11 VITAMIN D, 25-HYDROXY 79 ng/mL Normal [facility] Comment on above: Result Comment: . DEFICIENCY: < 20 NG/ML INSUFFICIENCY: 20-29 NG/ML SUFFICIENCY: 30-100 NG/ML THIS ASSAY ACCURATELY QUANTIFIES THE SUM OF VITAMIN D3, 25-HYDROXY AND VIT D2,25-HYDROXY. Performed By: #### V TDOH ####[id number], [place] XR Chest 2 Viewson 3 Radiology Study observation (narrative) [facility] Work Phone: LIPID PANEL (CORONARY RISK 2 )on 05-29-2022 Lab Specimen Source Normal [facility] Comment on above: Performed By: #### L IPID #### [facility] [address] [place], [place] Performed By: #### M G #### [facility] [address] [place], [place] Performed By: #### B MP #### [facility] [address] [place] [address] Performed By: #### P HOS #### [facility] [address] [place] [address] Performed By: #### C BC ####[id number] [place] [address] Laboratory - Chemistry and C hemistry - challengeon 05-29-2022 Anion gap [Moles/Vol] 13 mmol/L 10 - 20 [facility]- [facility]-[place] [address] [place] Work Phone: [phone] Calcium [Mass/Vol] 10.2 mg/dL 8.6 - 10.6 MP-Car diolo gy-[place] [address] [place] Work Phone: [phone] Chloride [Moles/Vol] 105 mmol/L 98 - 107 MP-C ardiolo gy-[place] [address] [place] Work Phone: [phone] CO2 [Moles/Vol] 31 mmol/L 21 - 32 [facility]-Cardio lo gy-[place] [address] [place] Work Phone: [phone] Creatinine [Mass/Vol] 0.93 mg/dL See Below MP- Cardiolo gy-[place] [address] [place] Work Phone: [phone] Comment on above: Reference Range: 0.5 0 - 1.05 Glucose [Mass/Vol] 84 mg/dL 74 - 99 [facility]-Car diolo gy-[place] [address] [place] Work Phone: [phone] Comment on above: SOURCE: Potassium [Moles/Vol] 4.2 mmol/L 3.5 - 5.3 [facility]- [facility]-[place] [address] [place] Work Phone: [phone] Sodium [Moles/Vol] 145 mmol/L 136 - 145 [facility]-Car diolo gy-[place] [address] [place] Work Phone: [phone] Urea nitrogen [Mass/Vol] 22 mg/dL 6 - 23 [facility] [address] [place] Work Phone: [phone] Laboratory - Hematology and Cell countson 05-29-2022 Erythrocyte distribution width (RBC) [Ratio] 14.7 % above high threshold See Below [facility]-[place] [address] [place] Work Phone: [phone] Comment on above: Reference Range: 11. 5 - 14.5 Hematocrit (Bld) [Volume fraction] 41.1 % See Below [facility]-[place] [address] [place] Work Phone: [phone] Comment on above: Reference Range: 36. 0 - 46.0 Hemoglobin (Bld) [Mass/Vol] 13.0 g/dL See Below [facility]-[place] [address] [place] Work Phone: [phone] Comment on above: Reference Range: 12. 0 - 16.0 MCHC (RBC) [Mass/Vol] 31.6 g/dL below low threshold See Below [facility]-[place] [address] [place] Work Phone: [phone] Comment on above: Reference Range: 32. 0 - 36.0 MCV (RBC) [Entitic vol] 106 fL above high threshold 80 - 100 [facility] [address] [place] Work Phone: [phone] Platelets (Bld) [#/Vol] 234 10*3/uL 150 - 450 [facility]-[place] [address] [place] Work Phone: [phone] RBC (Bld) [#/Vol] 3.87 {x10E12/L} below low threshold See Below [facility]-[place] [address] [place] Work Phone: [phone] Comment on above: Reference Range: 4.0 0 - 5.20 WBC (Bld) [#/Vol] 7.0 10*3/uL 4.4 - 11.3 MP-Car diolo gy-[place] [address] [place] Work Phone: Comment on above: SOURCE: Lipid Panelon 05-29-2022 Cholesterol [Mass/Vol] 158 mg/dL 0 - 199 [facility] [address] [place] Work Phone: Comment on above: [...] guidelines reference: NCEP ATPIII Guidelines, LAURA 2001, 258:0236-97. Venipuncture immediately after or during the administration of Metamizole may lead to falsely low results. Testing should be performed immediately prior to Metamizole dosing. Cholesterol in HDL [Mass/Vol] 47.3 mg/dL MP-CardioVysr-[place] [address] [place] Work Phone: Comment on above: . AGE VERY LOW LOW N ORMAL HIGH 0-19 Y < 35 < 40 40-45 ---- 20- 24 Y ---- < 40 >45 ---- >24 Y ---- < 40 40-60 >60. Cholesterol in LDL [Mass/Vol] 84 mg/dL 0 - 99 [facility]ioVysr-[place] [address] [place] Work Phone: Comment on above: . NEAR BORD AGE TORI RABLE OPTIMAL HIGH HIGH VERY HIGH 0-19 Y 0 - 109 --- 110-129 >/= 130 ---- 20-24 Y 0 - 119 --- 120-159 >/= 160 ---- >24 Y 0 - 99 100-129 130-159 160-189 >/=190. Cholesterol.total/Cho lesterol in HDL [Mass ratio] 3.3 {ratio} [facility]ys[facility]-[place] [address] [place] Work Phone: Comment on above: REF VALUESDESIRABLE < 3.4HIGH RISK > 5.0 Triglyceride [Mass/Vol] 135 mg/dL 0 - 149 [facility]-[place] [address] [place] Work Phone: Comment on above: [...] Panel 27 mg/dL 0 - 40 [facility] [address] [place] Work Phone: Magnesium, Serumon 3 Magnesium [Mass/Vol] 2.26 mg/dL See Below MP-C aldairolo gy-[place] [address] [place] Work Phone: Comment on above: SOURCE: Reference Ra nge: 1.60 - 2.40 No Panel Informationon 05-29 60 {mL/min/1.73m2} >90 MP-Car diolo gy-[place] [address] [place] Work Phone: Comment on above: CALCULATIONS OF ALVARO MATED GFR ARE PERFORMED USING THE 2020 CKD-EPI STUDY REFIT EQUATION WITHOUT THE RACE VARIABLE FOR THE IDMS-TRACEABLE CREATININE METHODS.https://jasn.asnjournals.org/content/early/ N.8903641253 0.3 {/100_WBC} 0.0-0.0 [facility]-[place] [address] [place] Work Phone: Phosphorus, Serumon 05-30-19 23 Phosphate [Mass/Vol] 3.3 mg/dL 2.5 - 4.9 MP-C emirdiolo gy-[place] [address] [place] Work Phone: Comment on above: SOURCE: The performa nce characteristics of phosphorus testing in heparinized plasma have been validated by the individual laboratory site where testing is performed. Testing on heparinized plasma is not approved by the FDA; however, such approval is not necessary. Vitamin D 25-Hydroxyon 05-29 25-hydroxyvitamin D3 [Mass/Vol] 79 ng/mL [facility] [address] [place] Work Phone: Comment on above: [...] Electronically signed by: SUHAIL ALMANZA MD Normal [facility] Blood Pressure Cuff Sizeon 0 03-12-2022 Tobacco use status CPHS b) No [facility] Work Phone: Blood Pressure Cuff Size Adult [facility] Work Phone: Echocardiogramon 03-12-2022 Echocardiography [facility] , [address], [address], [place] [address] and TRANSTHORACIC ECHOCARDIOGRAM REPORT Patient Name: KATHERINE JUDGE Reading Physician: [id number] Darlene Ayala MD Study Date: 03/12/2022 Referring Physician: Apple Beth MRN/PID: [id number] PCP: Accession/Order#: [id number] Department Location: [facility] Date of : 1935 Fellow: Gender: F Nurse: Admit Date: Mission Analyst: Rama ALEGRE Admission Status: Outpatient Additional Staff: Height: 154.94 cm CC Report to: Weight: 48.08 kg Study Type: Echocardiogram BSA: 1.44 m2 Blood Pressure: 136 /69 mmHg Diagnosis/ICD: I34.1-Nonrheumatic mitral (valve) prolapse; I25.10-Atherosclerotic heart disease of [place] coronary artery without angina pectoris Indication: CAD, MVP Procedure/CPT: Echo Complete w Full Doppler-[id number] Patient History: Pertinent History: Hx rheumatic fever as child, Anemia, Hypothyroid, HTN, HLD, Hx CVA, CKD, 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 Study Detail: [...] LA Area A2C: 21.4 cm2 LA Major [place] A4C: 6.0 cm LA [place] A2C: 5.5 cm LA Vol A4C: 79.5 ml LA Vol A2C: 67.7 ml RA VOLUME BY A/L METHOD: Normal Ranges: RA Vol A4C: 33.2 ml (8.3-19.5ml) RA Vol Index A4C: 23.0 ml/m2 RA Area A4C: 13.1 cm2 RA [place] A4C: 4.4 cm AORTA MEASUREMENTS: Normal Ranges: [...] 2.9 cm (more content not included)... Normal [facility] Office Visit (Cardiology)on 03-12-2022 Follow-up visit Diagnoses/Problems Assessed Aortic stenosis (424.1) (I35.0) Benign essential hypertension (401.1) (I10) Bilateral carotid artery stenosis (433.10,433.30) (I65.23) CAD (coronary artery disease) (414.00) (I25.10) Hypercholesterolemia (272.0) (E78.00) History of Present Illness 03/12/22: Mrs Judge is an 86 year old female with anemia, mitral regurg, rheumatic fever as a child, hypothyroidism, hypertension, hyperlipidemia, [place],m CAD, CABG and then an angioplasty after [...] fever as a child, hypothyroidism, hypertension, hyperlipidemia, [place],m CAD, CABG and then an angioplasty after [...] a PMH of anemia, hypothyroidism, hypertension, hyperlipidemia, [place], CAD, CABG, then an angioplasty after CABG, [...] by Problem List Migration; 2012-04-06; Moved to [facility] Jan 01 2013 4:07PM Medicare annual [...] Non-Q-wave Myocardial Infarction - Initial Care ([place]) (410.71) Added by Problem List Migration; 2012-08-06 History of Arthritis (V13.4) History of Atherosclerotic heart disease of [place] coronary artery with unspecified angina pectoris (414.01,413.9) (I25.119) Added by Problem List Migration; 2012-10-05 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 Normal [facility] Carotid Artery Dupl ex Ultrasounon 03-12-2022 VASC LAB Carotid Artery Duplex [address], [address] [address] and Vascular Lab Report Carotid Artery Duplex Ultrasound Patient Name: KATHERINE Lo Physician: [id number] Gonsalo Willis MD Study Date: 03/12/2022 Referring Physician: APPLE BETH MRN/PID: [id number] PCP: Accession/Order#: [id number] CC Report to: Date of : 1935 Technologist: Anthony Rich RVT, RDMS Gender: F Technologist 2: Admission Status: Outpatient Location Performed: [facility] Diagnosis/ICD: R09.89-Other specified symptoms and signs involving the circulatory and respiratory systems Procedure/CPT: 00983 Cerebrovascular Carotid Duplex scan complete-[id number] CONCLUSIONS: Right Carotid: Findings are consistent with [...] cm/s Right Left ICA/CCA Ratio 0.9 0.8 [id number] Gonsalo Willis MD Final Normal [facility] Carotid Artery Dupl ex Ultrasoundon 03-12-2022 US.doppler Carotid arteries [facility] Work Phone: BASIC METABOLIC PANELon 09-0 Anion gap [Moles/Vol] 15 mmol/L Normal 10 - 20 [facility] Comment on above: Performed By: #### B MP #### [facility] [address] [place] [address] Calcium [Mass/Vol] 10.3 mg/dL Normal 8.6 - 10.6 [facility] Comment on above: Performed By: #### B MP #### [facility] [address] [place] [address] Chloride [Moles/Vol] 103 mmol/L Normal 98 - 107 [facility] [facility] Comment on above: Performed By: #### B MP #### [place] [address] [place] [address] Creatinine [Mass/Vol] 1.22 mg/dL High 0.50 - 1.05 [facility] Comment on above: Performed By: #### B MP #### [facility] [address] [place] [address] GFR/1.73 sq M.predicted among non-blacks MDRD (S/P/Bld) [Vol rate/Area] 43 mL/min/{1.73_m2} Abnormal >90 [facility] Comment on above: Result Comment: CALC ULATIONS OF ESTIMATED GFR ARE PERFORMED USING THE 2020 CKD-EPI STUDY REFIT EQUATION WITHOUT THE RACE VARIABLE FOR THE IDMS-TRACEABLE CREATININE METHODS. https://jasn.asnjournals.org/content/early//ASN.272764 6929 Performed By: #### B MP #### [facility] [address] [place] [address] Glucose [Mass/Vol] 94 mg/dL Normal 74 - 99 [facility] Comment on above: Performed By: #### B MP #### [facility] [address] [place] [address] HCO3 (Bld) [Moles/Vol] 29 mmol/L Normal 21 - 32 [facility] Comment on above: Performed By: #### B MP #### [facility] [address] [place] [address] Potassium [Moles/Vol] 4.5 mmol/L Normal 3.5 - 5.3 [facility] Comment on above: Performed By: #### B MP #### [facility] [address] [place] [address] Sodium [Moles/Vol] 142 mmol/L Normal 136 - 145 [facility] Comment on above: Performed By: #### B MP #### [facility] [address] [place] [address] Urea nitrogen [Mass/Vol] 21 mg/dL Normal 6 - 23 [facility] Comment on above: Performed By: #### B MP #### [facility] [address] [place] [address] Blood Pressure Cuff Sizeon 0 10-16-2021 Blood Pressure Cuff Size Adult [facility] Work Phone: CBCon 10-16-2021 Erythrocyte distribution width (RBC) [Ratio] 13.5 % Normal 11.5 - 14.5 [facility] Comment on above: Performed By: #### C BC #### [facility] [address] [place] [address] Hematocrit (Bld) [Volume fraction] 39.0 % Normal 36.0 - 46.0 [facility] Comment on above: Performed By: #### C BC #### [facility] [address] [place] [address] Hemoglobin (Bld) [Mass/Vol] 12.0 g/dL Normal 12.0 - 16.0 [facility] Comment on above: Performed By: #### C BC #### [facility] [address] [place] [address] MCHC (RBC) [Mass/Vol] 30.8 g/dL Low 32.0 - 36.0 [facility] Comment on above: Performed By: #### C BC #### [facility] [address] [place] [address] MCV (RBC) [Entitic vol] 107 fL High 80 - 100 [facility] Comment on above: Performed By: #### C BC #### [facility] [address] [place] [address] NUCLEATED RBC 0.0 /100 WBC Normal 0.0-0.0 [facility] Comment on above: Performed By: #### C BC #### [facility] [address] [place] [address] Platelets (Bld) [#/Vol] 235 10*3/uL Normal 150 - 450 [facility] Comment on above: Performed By: #### C BC #### [facility] [address] [place] [address] RBC 3.64 x10E12/L Low 4.00 - 5.20 [facility] Comment on above: Performed By: #### C BC #### [facility] [address] [place] [address] WBC (Bld) [#/Vol] 6.6 10*3/uL Normal 4.4 - 11.3 [facility] Comment on above: Performed By: #### C BC #### [facility] [address] [place] [address] Laboratory - Chemistry and C hemistry - challengeon 10-16-2021 Anion gap [Moles/Vol] 15 mmol/L 10 - 20 [facility] Work Phone: [phone] Calcium [Mass/Vol] 10.3 mg/dL 8.6 - 10.6 [facility] Work Phone: [phone] Chloride [Moles/Vol] 103 mmol/L 98 - 107 [facility] Work Phone: [phone] CO2 [Moles/Vol] 29 mmol/L 21 - 32 [facility] Work Phone: [phone] Creatinine [Mass/Vol] 1.22 mg/dL above high threshold See Below [facility] Work Phone: [phone] Comment on above: Reference Range: 0.5 0 - 1.05 Glucose [Mass/Vol] 94 mg/dL 74 - 99 [facility] Work Phone: Potassium [Moles/Vol] 4.5 mmol/L 3.5 - 5.3 - [facility] Work Phone: Sodium [Moles/Vol] 142 mmol/L 136 - 145 -[facility] Work Phone: [phone] Urea nitrogen [Mass/Vol] 21 mg/dL 6 - 23 [facility] Work Phone: Laboratory - Hematology and Cell countson 10-16-2021 Erythrocyte distribution width (RBC) [Ratio] 13.5 % See Below [facility] Work Phone: Comment on above: Reference Range: 11. 5 - 14.5 Hematocrit (Bld) [Volume fraction] 39.0 % See Below [facility] Work Phone: Comment on above: Reference Range: 36. 0 - 46.0 Hemoglobin (Bld) [Mass/Vol] 12.0 g/dL See Below [facility] Work Phone: Comment on above: Reference Range: 12. 0 - 16.0 MCHC (RBC) [Mass/Vol] 30.8 g/dL below low threshold See Below [facility] Work Phone: Comment on above: Reference Range: 32. 0 - 36.0 MCV (RBC) [Entitic vol] 107 fL above high threshold 80 - 100 [facility] Work Phone: Platelets (Bld) [#/Vol] 235 10*3/uL 150 - 450 [facility] Work Phone: RBC (Bld) [#/Vol] 3.64 {x10E12/L} below low threshold See Below [facility] Work Phone: Comment on above: Reference Range: 4.0 0 - 5.20 WBC (Bld) [#/Vol] 6.6 10*3/uL 4.4 - 11.3 [facility] Work Phone: No Panel Informationon 10-16 0.0 {/100_WBC} 0.0-0.0 [facility] Work Phone: 43 {mL/min/1.73m2} Abnormal >90 [facility] Work Phone: Comment on above: CALCULATIONS OF ALVARO MATED GFR ARE PERFORMED USING THE 2020 CKD-EPI STUDY REFIT EQUATION WITHOUT THE RACE VARIABLE FOR THE IDMS-TRACEABLE CREATININE METHODS.https://jasn.asnjournals.org/content/early/ N.2887838908 Blood Pressure Cuff Sizeon 0 08-14-2021 Blood Pressure Cuff Size Adult [facility] [place] Work Phone: Blood Pressure Cuff Sizeon 0 04-11-2021 Blood Pressure Cuff Size Adult [facility] Work Phone: Blood Pressure Cuff Sizeon 0 04-05-2021 Blood Pressure Cuff Size Adult [facility] Work Phone: Echocardiogramon 04-04-2021 Echocardiography Please click on the link to view the study images Normal [facility] Work Phone: Complete Blood Count + Diffe rentialon 04-03-2021 Basophils/100 WBC (Bld) 1.2 % 0.0 - 2.0 [facility] Work Phone: [phone] Erythrocyte distribution width (RBC) [Ratio] 14.8 % above high threshold See Below [facility] Work Phone: [phone] Comment on above: Reference Range: 11. 5 - 14.5 Hematocrit (Bld) [Volume fraction] 37.3 % See Below [facility] Work Phone: [phone] Comment on above: Reference Range: 36. 0 - 46.0 Hemoglobin (Bld) [Mass/Vol] 11.8 g/dL below low threshold See Below [facility] Work Phone: [phone] Comment on above: Reference Range: 12. 0 - 16.0 Lymphocytes/100 WBC (Bld) 39.5 % See Below [facility] Work Phone: [phone] Comment on above: Reference Range: 13. 0 - 44.0 MCHC (RBC) [Mass/Vol] 31.6 g/dL below low threshold See Below [facility] Work Phone: Comment on above: Reference Range: 32. 0 - 36.0 MCV (RBC) [Entitic vol] 105 fL above high threshold 80 - 100 [facility] Work Phone: Monocytes/100 WBC (Bld) 7.0 % 2.0 - 10.0 [facility] Work Phone: [phone] Neutrophils/100 WBC (Bld) 49.1 % See Below [facility] Work Phone: Comment on above: Reference Range: 40. 0 - 80.0 Platelets (Bld) [#/Vol] 223 10*3/uL 150 - 450 [facility] Work Phone: RBC (Bld) [#/Vol] 3.56 {x10E12/L} below low threshold See Below [facility] Work Phone: Comment on above: Reference Range: 4.0 0 - 5.20 WBC (Bld) [#/Vol] 5.8 10*3/uL 4.4 - 11.3 [facility] Work Phone: Complete Blood Count + Differential 0.07 {x10E9/L} See Below [facility] Work Phone: Comment on above: Reference Range: 0.0 0 - 0.10 Complete Blood Count + Differential 0.17 {x10E9/L} See Below [facility] Work Phone: Comment on above: Reference Range: 0.0 0 - 0.40 Complete Blood Count + Differential 0.41 {x10E9/L} See Below [facility] Work Phone: Comment on above: Reference Range: 0.0 5 - 0.80 Complete Blood Count + Differential 2.30 {x10E9/L} See Below [facility] Work Phone: Comment on above: Reference Range: 0.8 0 - 3.00 Complete Blood Count + Differential 2.86 {x10E9/L} See Below [facility] Work Phone: Comment on above: Reference Range: 1.6 0 - 5.50 Complete Blood Count + Differential 2.9 % 0.0 - 6.0 [facility] Work Phone: [phone] Complete Blood Count + Differential 0.3 % 0.0 - 0.9 [facility] Work Phone: Comment on above: Immature Granulocyte Count (IG) includes promyelocytes, myelocytes and metamyelocytes but does not include bands. Percent differential counts (%) should be interpreted in the context of the absolute cell counts (cells/L). Complete Blood Count + Differential 0.0 {/100_WBC} 0.0-0.0 [facility] Work Phone: Laboratory - Chemistry and C hemistry - challengeon 04-03-2021 Albumin BCP dye [Mass/Vol] 3.7 g/dL 3.4 - 5.0 [facility] Work Phone: [phone] ALP [Catalytic activity/Vol] 51 U/L 33 - 136 [facility] Work Phone: ALT With P-5'-P [Catalytic activity/Vol] 14 U/L 7 - 45 [facility] Work Phone: Comment on above: Patients treated wit h Sulfasalazine may generate falsely decreased results for ALT. Anion gap [Moles/Vol] 15 mmol/L 10 - 20 [facility] Work Phone: AST With P-5'-P [Catalytic activity/Vol] 18 U/L 9 - 39 [facility] Work Phone: Bilirubin [Mass/Vol] 0.5 mg/dL 0.0 - 1.2 [facility] Work Phone: Calcium [Mass/Vol] 9.3 mg/dL 8.6 - 10.6 [facility] Work Phone: Chloride [Moles/Vol] 107 mmol/L 98 - 107 [facility] Work Phone: CO2 [Moles/Vol] 27 mmol/L 21 - 32 [facility] Work Phone: Creatinine [Mass/Vol] 1.08 mg/dL above high threshold See Below [facility] Work Phone: Comment on above: Reference Range: 0.5 0 - 1.05 Glucose [Mass/Vol] 85 mg/dL 74 - 99 [facility] Work Phone: Potassium [Moles/Vol] 4.8 mmol/L 3.5 - 5.3 [facility] Work Phone: Protein [Mass/Vol] 6.5 g/dL 6.4 - 8.2 [facility] Work Phone: Sodium [Moles/Vol] 144 mmol/L 136 - 145 [facility] Work Phone: Urea nitrogen [Mass/Vol] 23 mg/dL 6 - 23 [facility] Work Phone: Lipid Panelon 04-03-2021 Cholesterol [Mass/Vol] 146 mg/dL 0 - 199 [facility] Work Phone: Comment on above: . AGE [...] Cholesterol in HDL [Mass/Vol] 51.2 mg/dL [facility] Work Phone: Comment on above: . AGE VERY LOW LOW N ORMAL HIGH 0-19 Y < 35 < 40 40-45 ---- 20- 24 Y ---- < 40 >45 ---- >24 Y ---- < 40 40-60 >60. Cholesterol in LDL [Mass/Vol] 75 mg/dL 0 - 99 [employer] Work Phone: Comment on above: . NEAR BORD AGE TORI RABLE OPTIMAL HIGH HIGH VERY HIGH 0-19 Y 0 - 109 --- 110-129 >/= 130 ---- 20-24 Y 0 - 119 --- 120-159 >/= 160 ---- >24 Y 0 - 99 100-129 130-159 160-189 >/=190. Cholesterol.total/Cho lesterol in HDL [Mass ratio] 2.9 {ratio} [facility] Work Phone: Comment on above: REF VALUESDESIRABLE < 3.4HIGH RISK > 5.0 Triglyceride [Mass/Vol] 98 mg/dL 0 - 149 [facility] Work Phone: Comment on above: . AGE [...] Lipid Panel 20 mg/dL 0 - 40 [facility] Work Phone: No Panel Informationon 04-03 50 {mL/min/1.73m2} Abnormal >90 [facility] Work Phone: Comment on above: CALCULATIONS OF ALVARO MATED GFR ARE PERFORMED USING THE 2020 CKD-EPI STUDY REFIT EQUATION WITHOUT THE RACE VARIABLE FOR THE IDMS-TRACEABLE CREATININE METHODS.https://jasn.asnjournals.org/content// N.2575234283 Blood Pressure Cuff Sizeon 0 03-08-2021 Fall risk assessment a) No falls within the last year [facility] Work Phone: Tobacco use status [facility] b) No [facility] Work Phone: Blood Pressure Cuff Size Adult [facility] Work Phone: Laboratory - Chemistry and C hemistry - challengeon 01-15-2021 Anion gap [Moles/Vol] 12 mmol/L 10 - 20 [facility] Work Phone: Calcium [Mass/Vol] 9.8 mg/dL 8.6 - 10.6 [facility] Work Phone: Chloride [Moles/Vol] 106 mmol/L 98 - 107 [facility] Work Phone: CO2 [Moles/Vol] 27 mmol/L 21 - 32 [facility] Work Phone: Creatinine [Mass/Vol] 1.08 mg/dL above high threshold See Below [facility] Work Phone: Comment on above: Reference Range: 0.5 0 - 1.05 Glucose [Mass/Vol] 90 mg/dL 74 - 99 [facility] Work Phone: Potassium [Moles/Vol] 4.6 mmol/L 3.5 - 5.3 [facility] Work Phone: Sodium [Moles/Vol] 140 mmol/L 136 - 145 [facility] Work Phone: Urea nitrogen [Mass/Vol] 23 mg/dL 6 - 23 [facility] Work Phone: Laboratory - Hematology and Cell countson 01-15-2021 Erythrocyte distribution width (RBC) [Ratio] 13.2 % See Below [facility] Work Phone: Comment on above: Reference Range: 11. 5 - 14.5 Hematocrit (Bld) [Volume fraction] 36.9 % See Below [facility] Work Phone: Comment on above: Reference Range: 36. 0 - 46.0 Hemoglobin (Bld) [Mass/Vol] 11.5 g/dL below low threshold See Below [facility] Work Phone: Comment on above: Reference Range: 12. 0 - 16.0 MCHC (RBC) [Mass/Vol] 31.2 g/dL below low threshold See Below [facility] Work Phone: Comment on above: Reference Range: 32. 0 - 36.0 MCV (RBC) [Entitic vol] 106 fL above high threshold 80 - 100 [facility] Work Phone: Platelets (Bld) [#/Vol] 233 10*3/uL 150 - 450 [facility] Work Phone: RBC (Bld) [#/Vol] 3.47 {x10E12/L} below low threshold See Below [facility] Work Phone: Comment on above: Reference Range: 4.0 0 - 5.20 WBC (Bld) [#/Vol] 7.5 10*3/uL 4.4 - 11.3 [facility] Work Phone: No Panel Informationon 01-15 58 {mL/min/1.73m2} Abnormal >60 [facility] Work Phone: Comment on above: CALCULATIONS OF ALVARO MATED GFR ARE PERFORMED USING THE MDRD STUDY EQUATION FOR THE IDMS-TRACEABLE CREATININE METHODS. CLIN CHEM 2007;53:766-72 48 {mL/min/1.73m2} Abnormal >60 [facility] Work Phone: 0.0 {/100_WBC} 0.0-0.0 [facility] Work Phone: Tobacco Screening.on Tobacco use status CP b) No [facility] Work Phone: IO UA (automated w/o microsc opy)on 10-29-2020 Protein (U) [Mass/Vol] Trace [facility] Work Phone: IO UA (automated w/o microscopy) Negative [facility] Work Phone: IO UA (automated w/o microscopy) Normal (0.2-1.0 mg/dl) [facility] Work Phone: IO UA (automated w/o microscopy) 6.0 1 [facility] Work Phone: IO UA (automated w/o microscopy) 1.020 1 [facility] Work Phone: IO UA (automated w/o microscopy) Clear [facility] Work Phone: IO UA (automated w/o microscopy) Yellow [facility] Work Phone: [phone] Tobacco Screening.on Last menstrual period start date hyst [facility] Work Phone: Tobacco use status [facility] b) No [facility] Work Phone: Laboratory - Chemistry and C hemistry - challengeon 10-24-2020 Anion gap [Moles/Vol] 15 mmol/L 10 - 20 [facility] Work Phone: [phone] Calcium [Mass/Vol] 9.5 mg/dL 8.6 - 10.6 [facility] Work Phone: Chloride [Moles/Vol] 103 mmol/L 98 - 107 [facility] Work Phone: [phone] CO2 [Moles/Vol] 25 mmol/L 21 - 32 [facility] Work Phone: [phone] Creatinine [Mass/Vol] 0.88 mg/dL See Below [facility] Work Phone: Comment on above: Reference Range: 0.5 0 - 1.05 Glucose [Mass/Vol] 102 mg/dL above high threshold 74 - 99 [facility] Work Phone: Potassium [Moles/Vol] 4.5 mmol/L 3.5 - 5.3 [facility] Work Phone: Sodium [Moles/Vol] 138 mmol/L 136 - 145 [facility] Work Phone: Urea nitrogen [Mass/Vol] 19 mg/dL 6 - 23 [facility] Work Phone: Laboratory - Hematology and Cell countson 10-24-2020 Erythrocyte distribution width (RBC) [Ratio] 14.5 % See Below [facility] Work Phone: Comment on above: Reference Range: 11. 5 - 14.5 Hematocrit (Bld) [Volume fraction] 36.8 % See Below [facility] Work Phone: Comment on above: Reference Range: 36. 0 - 46.0 Hemoglobin (Bld) [Mass/Vol] 11.5 g/dL below low threshold See Below [facility] Work Phone: Comment on above: Reference Range: 12. 0 - 16.0 MCHC (RBC) [Mass/Vol] 31.3 g/dL below low threshold See Below [facility] Work Phone: Comment on above: Reference Range: 32. 0 - 36.0 MCV (RBC) [Entitic vol] 105 fL above high threshold 80 - 100 [facility] Work Phone: Platelets (Bld) [#/Vol] 450 10*3/uL 150 - 450 [facility] Work Phone: RBC (Bld) [#/Vol] 3.52 {x10E12/L} below low threshold See Below [facility] Work Phone: Comment on above: Reference Range: 4.0 0 - 5.20 WBC (Bld) [#/Vol] 9.1 10*3/uL 4.4 - 11.3 [facility] Work Phone: No Panel Informationon 10-24 0.0 {/100_WBC} 0.0-0.0 [facility] Work Phone: >60 >60 [facility] Work Phone: Comment on above: CALCULATIONS OF ALVARO MATED GFR ARE PERFORMED USING THE MDRD STUDY EQUATION FOR THE IDMS-TRACEABLE CREATININE METHODS. CLIN CHEM 2007;53:766-72 Comp Panel with Mg Reflexon 10-22-2020 ALP [Catalytic activity/Vol] 73 U/L Normal 38-126 [facility] Comment on above: Performed By: #### Fernando Hammond CMP3M #### [facility] [address] [place] [address] ALT [Catalytic activity/Vol] 23 U/L Normal 0-34 [facility] Comment on above: Result Comment: The ALT test is performed by an updated assay method. Please note that the reference intervals have been changed and are now sex specific. Performed By: #### Fernando Hammond CMP3M #### [facility] [employer] [address] [place] [address] AST [Catalytic activity/Vol] 49 U/L High 15-46 [facility] Comment on above: Performed By: #### Fernando Hammond CMP3M #### [facility] [address] [place] [address] Calcium [Mass/Vol] 10.0 mg/dL Normal 8.4-10.4 [facility] Comment on above: Performed By: #### Fernando Hammond CMP3M #### [facility] [employer] [facility] [address] [place] [address] Glucose [Mass/Vol] 108 mg/dL High 70-100 [facility] Comment on above: Performed By: #### Fernando Hammond CMP3M #### [facility] [employer] [facility] [address] [place] [address] Protein [Mass/Vol] 6.9 g/dL Normal 6.3-8.2 [facility] Comment on above: Performed By: #### Fernando Hammond CMP3M #### [facility] [employer] [address] [place] [address] Urea nitrogen [Mass/Vol] 16 mg/dL Normal 9-20 [facility] Comment on above: Performed By: #### Fernando G3, CMP3M #### [facility] [address] [place] [address] Anion gap [Moles/Vol] 7 mmol/L Normal 3-13 [facility] Comment on above: Performed By: #### Fernando G3, CMP3M #### [facility] [address] [place] [address] Bilirubin [Mass/Vol] 0.7 mg/dL Normal 0.2-1.3 [facility] Comment on above: Performed By: #### Fernando G3, CMP3M #### [facility] [address] [place] [address] CO2 [Moles/Vol] 25 mmol/L Normal 22-30 [facility] Comment on above: Performed By: #### Fernando G3 CMP3M #### [facility] [address] [place] [address] Creatinine [Mass/Vol] 0.69 mg/dL Normal 0.52-1.25 [facility] Comment on above: Performed By: #### Fernando G3, CMP3M #### [facility] [address] [place] [address] GFR/1.73 sq M.predicted among blacks MDRD (S/P/Bld) [Vol rate/Area] mL/min/{1.73_m2} Normal >60 [facility] Comment on above: Performed By: #### Fernando G3, CMP3M #### [facility] [address] [place] [address] GFR/1.73 sq M.predicted among non-blacks MDRD (S/P/Bld) [Vol rate/Area] 79.6 mL/min/{1.73_m2} Normal >60 [facility] Comment on above: Result Comment: KDIG [...] Performed By: #### Fernando Hammond CMP3M #### [facility] [address] [place] [address] Albumin [Mass/Vol] 3.4 g/dL Low 3.5-5.0 [facility] Comment on above: Performed By: #### Fernando Hammond CMP3M #### [facility] [address] [place] [address] Chloride [Moles/Vol] 105 mmol/L Normal 98-107 [facility] Comment on above: Performed By: #### Fernando Hammond CMP3M #### [facility] [address] [place] [address] Potassium [Moles/Vol] 5.3 mmol/L High 3.5-5.1 [facility] Comment on above: Performed By: #### Fernando Hammond CMP3M #### [facility] [address] [place] [address] Sodium [Moles/Vol] 137 mmol/L Normal 135-145 [facility] Comment on above: Performed By: #### Fernando Hammond CMP3M #### [facility] [address] [place] [address] Hemogram w/ Autodiffon 10-22 Abs Baso Cnt 0.1 10*3/uL Normal 0.0-0.2 [facility] Comment on above: Performed By: #### Fernando Hammond CMP3M #### [facility] [address] [place] [address] Abs Neutrophile Cnt 6.0 10*3/uL Normal 1.8-7.0 [facility] Comment on above: Performed By: #### Fernando Hammond CMP3M #### [facility] [address] [place] [address] Basophils/100 WBC (Bld) 0.8 % Normal 0.0-2.0 [facility] Comment on above: Performed By: #### Fernando G3, CMP3M #### [facility] [address] [place] [address] Eosinophils (Bld) [#/Vol] 0.1 10*3/uL Normal 0.0-0.5 [facility] Comment on above: Performed By: #### Fernando G3, CMP3M #### [facility] [address] [place] [address] Eosinophils/100 WBC (Bld) 1.5 % Normal 1.0-6.0 [facility] Comment on above: Performed By: #### Fernando Hammond CMP3M #### [facility] [address] [place] [address] Erythrocyte distribution width (RBC) [Ratio] 13.9 % Normal 11.5-14.5 [facility] Comment on above: Performed By: #### Fernando Hammond CMP3M #### [facility] [address] [place] [address] Granulocytes/100 WBC (Bld) 66.3 % Normal 40.0-80.0 [facility] Comment on above: Performed By: #### Fernando Hammond CMP3M #### [facility] [address] [place] [address] Hematocrit (Bld) [Volume fraction] 35.4 % Normal 35.0-47.0 [facility] Comment on above: Performed By: #### Fernando G3, CMP3M #### [facility] [address] [place] [address] Hemoglobin (Bld) [Mass/Vol] 12.4 g/dL Normal 11.7-16.0 [facility] Comment on above: Performed By: #### Fernando G3, CMP3M #### [facility] [address] [place] [address] Lymphocytes (Bld) [#/Vol] 2.2 10*3/uL Normal 1.0-4.3 [facility] Comment on above: Performed By: #### Fernando G3, CMP3M #### [facility] [address] [place] [address] Lymphocytes/100 WBC (Bld) 23.6 % Normal 20.0-40.0 [facility] Comment on above: Performed By: #### Fernando Hammond CMP3M #### [facility] [address] [place] [address] MCH (RBC) [Entitic mass] 34.3 pg High 26.0-34.0 [facility] Comment on above: Performed By: #### Fernando Hammond CMP3M #### [facility] [address] [place] [address] MCHC 34.9 % Normal 32.0-36.0 [facility] Comment on above: Performed By: #### Fernando Hammond CMP3M #### [facility] [address] [place] [address] MCV (RBC) [Entitic vol] 98.3 fL High 79.0-98.0 [facility] Comment on above: Performed By: #### Fernando Hammond CMP3M #### [facility] [address] [place] [address] Monocytes (Bld) [#/Vol] 0.7 10*3/uL Normal 0.0-0.8 [facility] Comment on above: Performed By: #### Fernando Hammond CMP3M #### [facility] [address] [place] [address] Monocytes/100 WBC (Bld) 7.8 % Normal 2.0-10.0 [facility] Comment on above: Performed By: #### Fernando Hammond CMP3M #### [facility] [address] [place] [address] Platelet mean volume (Bld) [Entitic vol] 7.0 fL Low 7.4-10.4 [facility] Comment on above: Performed By: #### Fernando Hammond CMP3M #### [facility] [address] [place] [address] Platelets (Bld) [#/Vol] 301 10*3/uL Normal 140-440 [facility] Comment on above: Performed By: #### Fernando Hammond CMP3M #### [facility] [address] [place] [address] RBC (Bld) [#/Vol] 3.60 10*6/uL Low 3.80-5.20 [facility] Comment on above: Performed By: #### Fernando Hammond CMP3M #### [facility] [address] [place] [address] WBC (Bld) [#/Vol] 9.1 10*3/uL Normal 3.6-10.7 [facility] Comment on above: Performed By: #### Fernando Hammond CMP3M #### [facility] [address] [place] [address] Comp Panel with Mg Reflexon 10-21-2020 ALP [Catalytic activity/Vol] 72 U/L Normal 38-126 [facility] Comment on above: Performed By: #### Fernando Hammond CMP3M #### [facility] [address] [place] [address] ALT [Catalytic activity/Vol] 14 U/L Normal 0-34 [facility] Comment on above: Result Comment: The ALT test is performed by an updated assay method. Please note that the reference intervals have been changed and are now sex specific. Performed By: #### Fernando Hammond CMP3M #### [facility] [address] [place] [address] Calcium [Mass/Vol] 9.3 mg/dL Normal 8.4-10.4 [facility] Comment on above: Performed By: #### Fernando Hammond CMP3M #### [facility] [address] [place] [address] Glucose [Mass/Vol] 101 mg/dL High 70-100 [facility] Comment on above: Performed By: #### Fernando Hammond CMP3M #### [facility] [address] [place] [address] Urea nitrogen [Mass/Vol] 11 mg/dL Normal 9-20 [facility] Comment on above: Performed By: #### Fernando G3, CMP3M #### [facility] [address] [place] [address] Anion gap [Moles/Vol] 5 mmol/L Normal 3-13 [facility] Comment on above: Performed By: #### M G3, CMP3M #### [facility] [address] [place] [address] AST [Catalytic activity/Vol] 22 U/L Normal 15-46 [facility] Comment on above: Performed By: #### M G3, CMP3M #### [facility] [address] [place] [address] Bilirubin [Mass/Vol] 0.6 mg/dL Normal 0.2-1.3 [facility] Comment on above: Performed By: #### M G3, CMP3M #### [facility] [address] [place] [address] CO2 [Moles/Vol] 27 mmol/L Normal 22-30 [facility] Comment on above: Performed By: #### M G3, CMP3M #### [facility] [address] [place] [address] Creatinine [Mass/Vol] 0.55 mg/dL Normal 0.52-1.25 [facility] Comment on above: Performed By: #### M G3, CMP3M #### [facility] [address] [place] [address] GFR/1.73 sq M.predicted among blacks MDRD (S/P/Bld) [Vol rate/Area] mL/min/{1.73_m2} Normal >60 [facility] Comment on above: Performed By: #### M G3, CMP3M #### [facility] [address] [place] [address] GFR/1.73 sq M.predicted among non-blacks MDRD (S/P/Bld) [Vol rate/Area] 85.8 mL/min/{1.73_m2} Normal >60 [facility] Comment on above: Result Comment: KDIG [...] Performed By: #### Fernando G3, CMP3M #### [facility] [address] [place] [address] Protein [Mass/Vol] 6.5 g/dL Normal 6.3-8.2 [facility] Comment on above: Performed By: #### M G3 CMP3M #### [facility] [address] [place] [address] Potassium [Moles/Vol] 4.6 mmol/L Normal 3.5-5.1 [facility] Comment on above: Performed By: #### Fernando G3, CMP3M #### [facility] [address] [place] [address] Sodium [Moles/Vol] 138 mmol/L Normal 135-145 [facility] Comment on above: Performed By: #### M G3, CMP3M #### [facility] [address] [place] [address] Albumin [Mass/Vol] 3.2 g/dL Low 3.5-5.0 [facility] Comment on above: Performed By: #### M G3, CMP3M #### [facility] [address] [place] [address] Chloride [Moles/Vol] 107 mmol/L Normal 98-107 [facility] Comment on above: Performed By: #### M G3, CMP3M #### [facility] [address] [place] [address] Hemogram w/ Autodiffon 10-21 Abs Baso Cnt 0.0 10*3/uL Normal 0.0-0.2 [facility] Comment on above: Performed By: #### M G3, CMP3M #### [facility] [address] [place] [address] Abs Neutrophile Cnt 8.4 10*3/uL High 1.8-7.0 [facility] Comment on above: Performed By: #### M G3, CMP3M #### [facility] [address] [place] [address] Basophils/100 WBC (Bld) 0.4 % Normal 0.0-2.0 [facility] Comment on above: Performed By: #### M G3, CMP3M #### [facility] [address] [place] [address] Eosinophils (Bld) [#/Vol] 0.2 10*3/uL Normal 0.0-0.5 [facility] Comment on above: Performed By: #### M G3, CMP3M #### [facility] [address] [place] [address] Eosinophils/100 WBC (Bld) 1.3 % Normal 1.0-6.0 [facility] Comment on above: Performed By: #### M G3, CMP3M #### [facility] [address] [place] [address] Erythrocyte distribution width (RBC) [Ratio] 13.7 % Normal 11.5-14.5 [facility] Comment on above: Performed By: #### M G3, CMP3M #### [facility] [address] [place] [address] Granulocytes/100 WBC (Bld) 72.7 % Normal 40.0-80.0 [facility] Comment on above: Performed By: #### M G3, CMP3M #### [facility] [address] [place] [address] Hematocrit (Bld) [Volume fraction] 34.3 % Low 35.0-47.0 [facility] Comment on above: Performed By: #### M G3, CMP3M #### [facility] [address] [place] [address] Hemoglobin (Bld) [Mass/Vol] 11.5 g/dL Low 11.7-16.0 [facility] Comment on above: Performed By: #### M G3, CMP3M #### [facility] [address] [place] [address] Lymphocytes (Bld) [#/Vol] 2.0 10*3/uL Normal 1.0-4.3 [facility] Comment on above: Performed By: #### M G3, CMP3M #### [facility] [address] [place] [address] Lymphocytes/100 WBC (Bld) 17.4 % Low 20.0-40.0 [facility] Comment on above: Performed By: #### M G3, CMP3M #### [facility] [address] [place] [address] MCH (RBC) [Entitic mass] 33.1 pg Normal 26.0-34.0 [facility] Comment on above: Performed By: #### M G3, CMP3M #### [facility] [address] [place] [address] MCHC 33.5 % Normal 32.0-36.0 [facility] Comment on above: Performed By: #### M G3, CMP3M #### [facility] [address] [place] [address] MCV (RBC) [Entitic vol] 98.7 fL High 79.0-98.0 [facility] Comment on above: Performed By: #### M G3, CMP3M #### [facility] [address] [place] [address] Monocytes (Bld) [#/Vol] 0.9 10*3/uL High 0.0-0.8 [facility] Comment on above: Performed By: #### M G3, CMP3M #### [facility] [address] [place] [address] Monocytes/100 WBC (Bld) 8.2 % Normal 2.0-10.0 [facility] Comment on above: Performed By: #### M G3, CMP3M #### [facility] [address] [place] [address] Platelet mean volume (Bld) [Entitic vol] 7.6 fL Normal 7.4-10.4 [facility] Comment on above: Performed By: #### M G3, CMP3M #### [facility] [address] [place] [address] Platelets (Bld) [#/Vol] 284 10*3/uL Normal 140-440 [facility] Comment on above: Performed By: #### Fernando Hammond CMP3M #### [facility] [address] [place] [address] RBC (Bld) [#/Vol] 3.47 10*6/uL Low 3.80-5.20 [facility] Comment on above: Performed By: #### Fernando Hammond CMP3M #### [facility] [address] [place] [address] WBC (Bld) [#/Vol] 11.5 10*3/uL High 3.6-10.7 [facility] Comment on above: Performed By: #### Fernando Hammond CMP3M #### [facility] [address] [place] [address] CULTURE BLOODon 10-20-2020 Microscopic examination of blood, culture CULTURE BLOOD --> Status: F No growth at 5 days. Normal [facility] Comment on above: Performed By: #### Fernando Hammond CMP3M #### [facility] [address] [place] [address] CULTURE BLOOD (Two)on 2020 Microscopic examination of blood, culture CULTURE BLOOD (Two) --> Status: F No growth at 5 days. Normal [facility] Comment on above: Performed By: #### Fernando Hammond CMP3M #### [facility] [address] [place] [address] Comp Panel with Mg Reflexon 10-19-2020 ALP [Catalytic activity/Vol] 70 U/L Normal 38-126 [facility] Comment on above: Performed By: #### Fernando Hammond CMP3M #### [facility] [address] [place] [address] ALT [Catalytic activity/Vol] 16 U/L Normal 0-34 [facility] Comment on above: Result Comment: The ALT test is performed by an updated assay method. Please note that the reference intervals have been changed and are now sex specific. Performed By: #### Fernando Hammond CMP3M #### [facility] [address] [place] [address] Calcium [Mass/Vol] 8.3 mg/dL Low 8.4-10.4 [facility] Comment on above: Performed By: #### Fernando Hammond CMP3M #### [facility] [address] [place] [address] Glucose [Mass/Vol] 108 mg/dL High 70-100 [facility] Comment on above: Performed By: #### Fernando Hammond CMP3M #### [facility] [address] [place] [address] Urea nitrogen [Mass/Vol] 11 mg/dL Normal 9-20 [facility] Comment on above: Performed By: #### Fernando Hammond CMP3M #### [facility] [address] [place] [address] Anion gap [Moles/Vol] 2 mmol/L Low 3-13 [facility] Comment on above: Performed By: #### Fernando Hammond CMP3M #### [facility] [address] [place] [address] AST [Catalytic activity/Vol] 35 U/L Normal 15-46 [facility] Comment on above: Performed By: #### Fernando Hammond CMP3M #### [facility] [address] [place] [address] Bilirubin [Mass/Vol] 0.8 mg/dL Normal 0.2-1.3 [facility] Comment on above: Performed By: #### Fernando Hammond CMP3M #### [facility] [address] [place] [address] CO2 [Moles/Vol] 31 mmol/L High 22-30 [facility] Comment on above: Performed By: #### Fernando Hammond CMP3M #### [facility] [address] [place] [address] Creatinine [Mass/Vol] 0.48 mg/dL Low 0.52-1.25 [facility] Comment on above: Performed By: #### Fernando Hammond CMP3M #### [facility] [address] [place] [address] GFR/1.73 sq M.predicted among blacks MDRD (S/P/Bld) [Vol rate/Area] mL/min/{1.73_m2} Normal >60 [facility] Comment on above: Performed By: #### Fernando Hammond CMP3M #### [facility] [address] [place] [address] GFR/1.73 sq M.predicted among non-blacks MDRD (S/P/Bld) [Vol rate/Area] 89.7 mL/min/{1.73_m2} Normal >60 [facility] Comment on above: Result Comment: KDIG [...] Performed By: #### Fernando Hammond CMP3M #### [facility] [address] [place] [address] Protein [Mass/Vol] 6.2 g/dL Low 6.3-8.2 [facility] Comment on above: Performed By: #### Fernando Hammond CMP3M #### [facility] [address] [place] [address] Chloride [Moles/Vol] 104 mmol/L Normal 98-107 [facility] Comment on above: Performed By: #### Fernando Hammond CMP3M #### [facility] [address] [place] [address] Potassium [Moles/Vol] 3.7 mmol/L Normal 3.5-5.1 [facility] Comment on above: Performed By: #### M Manish CMP3M #### [facility] [address] [place] [address] Sodium [Moles/Vol] 137 mmol/L Normal 135-145 [facility] Comment on above: Performed By: #### Fernando Hammond CMP3M #### [facility] [address] [place] [address] Albumin [Mass/Vol] 3.1 g/dL Low 3.5-5.0 [facility] Comment on above: Performed By: #### Fernando G3, CMP3M #### [facility] [address] [place] [address] Hemogram w/ Autodiffon 10-19 Abs Baso Cnt 0.1 10*3/uL Normal 0.0-0.2 [facility] Comment on above: Performed By: #### M G3, CMP3M #### [facility] [address] [place] [address] Abs Neutrophile Cnt 5.6 10*3/uL Normal 1.8-7.0 [facility] Comment on above: Performed By: #### Fernando G3, CMP3M #### [facility] [address] [place] [address] Basophils/100 WBC (Bld) 0.7 % Normal 0.0-2.0 [facility] Comment on above: Performed By: #### Fernando Hammond, CMP3M #### [facility] [address] [place] [address] Eosinophils (Bld) [#/Vol] 0.1 10*3/uL Normal 0.0-0.5 [facility] Comment on above: Performed By: #### Fernando G3, CMP3M #### [facility] [address] [place] [address] Eosinophils/100 WBC (Bld) 0.9 % Low 1.0-6.0 [facility] Comment on above: Performed By: #### Fernando G3, CMP3M #### [facility] [address] [place] [address] Erythrocyte distribution width (RBC) [Ratio] 13.2 % Normal 11.5-14.5 [facility] Comment on above: Performed By: #### Fernando G3, CMP3M #### [facility] [address] [place] [address] Granulocytes/100 WBC (Bld) 65.2 % Normal 40.0-80.0 [facility] Comment on above: Performed By: #### Fernando Hammond CMP3M #### [facility] [address] [place] [address] Hematocrit (Bld) [Volume fraction] 32.6 % Low 35.0-47.0 [facility] Comment on above: Performed By: #### M G3, CMP3M #### [facility] [address] [place] [address] Hemoglobin (Bld) [Mass/Vol] 11.2 g/dL Low 11.7-16.0 [facility] Comment on above: Performed By: #### M G3, CMP3M #### [facility] [address] [place] [address] Lymphocytes (Bld) [#/Vol] 1.7 10*3/uL Normal 1.0-4.3 [facility] Comment on above: Performed By: #### Fernando G3, CMP3M #### [facility] [address] [place] [address] Lymphocytes/100 WBC (Bld) 19.6 % Low 20.0-40.0 [facility] Comment on above: Performed By: #### M G3, CMP3M #### [facility] [address] [place] [address] MCH (RBC) [Entitic mass] 33.6 pg Normal 26.0-34.0 [facility] Comment on above: Performed By: #### Fernando G3, CMP3M #### [facility] [address] [place] [address] MCHC 34.3 % Normal 32.0-36.0 [facility] Comment on above: Performed By: #### M G3, CMP3M #### [facility] [address] [place] [address] MCV (RBC) [Entitic vol] 98.1 fL High 79.0-98.0 [facility] Comment on above: Performed By: #### M G3, CMP3M #### [facility] [address] [place] [address] Monocytes (Bld) [#/Vol] 1.2 10*3/uL High 0.0-0.8 [facility] Comment on above: Performed By: #### Fernando G3, CMP3M #### [facility] [address] [place] [address] Monocytes/100 WBC (Bld) 13.6 % High 2.0-10.0 [facility] Comment on above: Performed By: #### M G3, CMP3M #### [facility] [address] [place] [address] Platelet mean volume (Bld) [Entitic vol] 7.5 fL Normal 7.4-10.4 [facility] Comment on above: Performed By: #### M G3, CMP3M #### [facility] [address] [place] [address] Platelets (Bld) [#/Vol] 231 10*3/uL Normal 140-440 [facility] Comment on above: Performed By: #### Fernando G3, CMP3M #### [facility] [address] [place] [address] RBC (Bld) [#/Vol] 3.33 10*6/uL Low 3.80-5.20 [facility] Comment on above: Performed By: #### Fernando G3, CMP3M #### [facility] [address] [place] [address] WBC (Bld) [#/Vol] 8.7 10*3/uL Normal 3.6-10.7 [facility] Comment on above: Performed By: #### M G3, CMP3M #### [facility] [address] [place] [address] Basic Metabolic Panelon 09-0 -2020 Calcium [Mass/Vol] 8.0 mg/dL Low 8.4-10.4 [facility] Comment on above: Performed By: #### Fernando G3, CMP3M #### [facility] [address] [place] [address] Glucose [Mass/Vol] 147 mg/dL High 70-100 [facility] Comment on above: Performed By: #### M G3, CMP3M #### [facility] [address] [place] [address] Urea nitrogen [Mass/Vol] 9 mg/dL Normal 9-20 [facility] Comment on above: Performed By: #### M G3, CMP3M #### [facility] [address] [place] [address] Anion gap [Moles/Vol] 6 mmol/L Normal 3-13 [facility] Comment on above: Performed By: #### M G3, CMP3M #### [facility] [address] [place] [address] CO2 [Moles/Vol] 33 mmol/L High 22-30 [facility] Comment on above: Performed By: #### M G3, CMP3M #### [facility] [address] [place] [address] Creatinine [Mass/Vol] 0.55 mg/dL Normal 0.52-1.25 [facility] Comment on above: Performed By: #### M G3, CMP3M #### [facility] [address] [place] [address] GFR/1.73 sq M.predicted among blacks MDRD (S/P/Bld) [Vol rate/Area] mL/min/{1.73_m2} Normal >60 [facility] Comment on above: Performed By: #### M G3, CMP3M #### [facility] [address] [place] [address] GFR/1.73 sq M.predicted among non-blacks MDRD (S/P/Bld) [Vol rate/Area] 85.8 mL/min/{1.73_m2} Normal >60 [facility] Comment on above: Result Comment: KDIG [...] Performed By: #### Fernando Hammond CMP3M #### [facility] [address] [place] [address] Potassium [Moles/Vol] 3.4 mmol/L Low 3.5-5.1 [facility] Comment on above: Performed By: #### Fernando Hammond CMP3M #### [facility] [address] [place] [address] Chloride [Moles/Vol] 100 mmol/L Normal 98-107 [facility] Comment on above: Performed By: #### Fernando Hammond CMP3M #### [facility] [address] [place] [address] Sodium [Moles/Vol] 139 mmol/L Normal 135-145 [facility] Comment on above: Performed By: #### Fernando G3 CMP3M #### [facility] [address] [place] [address] Calcium [Mass/Vol] 7.9 mg/dL Low 8.4-10.4 [facility] Comment on above: Performed By: #### Fernando Hammond CMP3M #### [facility] [address] [place] [address] Anion gap [Moles/Vol] 5 mmol/L Normal 3-13 [facility] Comment on above: Performed By: #### Fernando G3, CMP3M #### [facility] [address] [place] [address] CO2 [Moles/Vol] 34 mmol/L High 22-30 [facility] Comment on above: Performed By: #### Fernando G3 CMP3M #### [facility] [address] [place] [address] Creatinine [Mass/Vol] 0.44 mg/dL Low 0.52-1.25 [facility] Comment on above: Performed By: #### Fernando G3 CMP3M #### [facility] [address] [place] [address] eGFR OTHER > 90.0 Normal >60 [facility] Comment on above: Result Comment: KDIG [...] Performed By: #### Fernando Hammond CMP3M #### [facility] [address] [place] [address] GFR/1.73 sq M.predicted among blacks MDRD (S/P/Bld) [Vol rate/Area] mL/min/{1.73_m2} Normal >60 [facility] Comment on above: Performed By: #### Fernando Hammond CMP3M #### [facility] [address] [place] [address] Glucose [Mass/Vol] 123 mg/dL High 70-100 [facility] Comment on above: Performed By: #### Fernando Hammond CMP3M #### [facility] [address] [place] [address] Urea nitrogen [Mass/Vol] 5 mg/dL Low 9-20 [facility] Comment on above: Performed By: #### Fernando Hammond CMP3M #### [facility] [address] [place] [address] Chloride [Moles/Vol] 99 mmol/L Normal 98-107 [facility] Comment on above: Performed By: #### Fernando Hammond CMP3M #### [facility] [address] [place] [address] Potassium [Moles/Vol] 2.6 mmol/L Critically low 3.5-5.1 [facility] Comment on above: Performed By: #### Fernando Hammond CMP3M #### [facility] [address] [place] [address] Sodium [Moles/Vol] 138 mmol/L Normal 135-145 [facility] Comment on above: Performed By: #### Fernando Hammond CMP3M #### [facility] [address] [place] [address] Comp Panel with Mg Reflexon 10-18-2020 Calcium [Mass/Vol] 7.8 mg/dL Low 8.4-10.4 [facility] Comment on above: Performed By: #### Fernando Hammond CMP3M #### [facility] [address] [place] [address] ALP [Catalytic activity/Vol] 46 U/L Normal 38-126 [facility] Comment on above: Performed By: #### Fernando Hammond CMP3M #### [facility] [address] [place] [address] ALT [Catalytic activity/Vol] 13 U/L Normal 0-34 [facility] Comment on above: Result Comment: The ALT test is performed by an updated assay method. Please note that the reference intervals have been changed and are now sex specific. Performed By: #### Fernando Hammond CMP3M #### [facility] [address] [place] [address] Anion gap [Moles/Vol] 3 mmol/L Normal 3-13 [facility] Comment on above: Performed By: #### Fernando Hammond CMP3M #### [facility] [address] [place] [address] AST [Catalytic activity/Vol] 30 U/L Normal 15-46 [facility] Comment on above: Performed By: #### Fernando Hammond CMP3M #### [facility] [address] [place] [address] Bilirubin [Mass/Vol] 0.7 mg/dL Normal 0.2-1.3 [facility] Comment on above: Performed By: #### Fernando Hammond CMP3M #### [facility] [address] [place] [address] CO2 [Moles/Vol] 33 mmol/L High 22-30 [facility] Comment on above: Performed By: #### Fernando Hammond CMP3M #### [facility] [address] [place] [address] Glucose [Mass/Vol] 100 mg/dL Normal 70-100 [facility] Comment on above: Performed By: #### Fernando G3, CMP3M #### [facility] [address] [place] [address] Protein [Mass/Vol] 5.8 g/dL Low 6.3-8.2 [facility] Comment on above: Performed By: #### Fernando G3, CMP3M #### [facility] [address] [place] [address] Urea nitrogen [Mass/Vol] 6 mg/dL Low 9-20 [facility] Comment on above: Performed By: #### Fernando G3, CMP3M #### [facility] [address] [place] [address] Creatinine [Mass/Vol] 0.42 mg/dL Low 0.52-1.25 [facility] Comment on above: Performed By: #### Fernando G3, CMP3M #### [facility] [address] [place] [address] Albumin [Mass/Vol] 2.9 g/dL Low 3.5-5.0 [facility] Comment on above: Performed By: #### Fernando G3, CMP3M #### [facility] [address] [place] [address] Chloride [Moles/Vol] 100 mmol/L Normal 98-107 [facility] Comment on above: Performed By: #### M G3, CMP3M #### [facility] [address] [place] [address] Potassium [Moles/Vol] 2.6 mmol/L Critically low 3.5-5.1 [facility] Comment on above: Performed By: #### M G3, CMP3M #### [facility] [address] [place] [address] Sodium [Moles/Vol] 136 mmol/L Normal 135-145 [facility] Comment on above: Performed By: #### M G3, CMP3M #### [facility] [address] [place] [address] Hemogram w/ Autodiffon 10-18 Abs Baso Cnt 0.0 10*3/uL Normal 0.0-0.2 [facility] Comment on above: Performed By: #### H EMDF #### [facility] [address] [place] [address] Abs Neutrophile Cnt 2.6 10*3/uL Normal 1.8-7.0 [facility] Comment on above: Performed By: #### H EMDF #### [facility] [address] [place] [address] Basophils/100 WBC (Bld) 0.4 % Normal 0.0-2.0 [facility] Comment on above: Performed By: #### H EMDF #### [facility] [address] [place] [address] Eosinophils (Bld) [#/Vol] 0.1 10*3/uL Normal 0.0-0.5 [facility] Comment on above: Performed By: #### H EMDF #### [facility] [address] [place] [address] Eosinophils/100 WBC (Bld) 1.5 % Normal 1.0-6.0 [facility] Comment on above: Performed By: #### H EMDF #### [facility] [address] [place] [address] Erythrocyte distribution width (RBC) [Ratio] 13.5 % Normal 11.5-14.5 [facility] Comment on above: Performed By: #### H EMDF #### [facility] [address] [place] [address] Granulocytes/100 WBC (Bld) 52.8 % Normal 40.0-80.0 [facility] Comment on above: Performed By: #### H EMDF #### [facility] [address] [place] [address] Hematocrit (Bld) [Volume fraction] 31.3 % Low 35.0-47.0 [facility] Comment on above: Performed By: #### H EMDF #### [facility] [address] [place] [address] Hemoglobin (Bld) [Mass/Vol] 10.8 g/dL Low 11.7-16.0 [facility] Comment on above: Performed By: #### H EMDF #### [facility] [address] [place] [address] Lymphocytes (Bld) [#/Vol] 1.4 10*3/uL Normal 1.0-4.3 [facility] Comment on above: Performed By: #### H EMDF #### [facility] [address] [place] [address] Lymphocytes/100 WBC (Bld) 28.7 % Normal 20.0-40.0 [facility] Comment on above: Performed By: #### H EMDF #### [facility] [address] [place] [address] MCH (RBC) [Entitic mass] 33.8 pg Normal 26.0-34.0 [facility] Comment on above: Performed By: #### H EMDF #### [facility] [address] [place] [address] MCHC 34.6 % Normal 32.0-36.0 [facility] Comment on above: Performed By: #### H EMDF #### [facility] [address] [place] [address] MCV (RBC) [Entitic vol] 97.9 fL Normal 79.0-98.0 [facility] Comment on above: Performed By: #### H EMDF #### [facility] [address] [place] [address] Monocytes (Bld) [#/Vol] 0.8 10*3/uL Normal 0.0-0.8 [facility] Comment on above: Performed By: #### H EMDF #### [facility] [address] [place] [address] Monocytes/100 WBC (Bld) 16.6 % High 2.0-10.0 [facility] Comment on above: Performed By: #### H EMDF #### [facility] [address] [place] [address] Platelet mean volume (Bld) [Entitic vol] 7.2 fL Low 7.4-10.4 [facility] Comment on above: Performed By: #### H EMDF #### [place] [address] [place] [address] Platelets (Bld) [#/Vol] 201 10*3/uL Normal 140-440 [facility] Comment on above: Performed By: #### H EMDF #### [facility] [address] [place] [address] RBC (Bld) [#/Vol] 3.20 10*6/uL Low 3.80-5.20 [facility] Comment on above: Performed By: #### H EMDF #### [facility] [address] [place] [address] WBC (Bld) [#/Vol] 4.9 10*3/uL Normal 3.6-10.7 [facility] Comment on above: Performed By: #### H EMDF #### [facility] [address] [place] [address] Magnesiumon 10-18-2020 Magnesium [Mass/Vol] 2.1 mg/dL Normal 1.6-2.3 [facility] Comment on above: Performed By: #### M G3, CMP3M #### [facility] [address] [place] [address] Magnesium [Mass/Vol] 1.5 mg/dL Low 1.6-2.3 [facility] Comment on above: Performed By: #### M G3, CMP3M #### [facility] [address] [place] [address] Comp Metabolic Panelon 10-17 ALP [Catalytic activity/Vol] 42 U/L Normal 38-126 [facility] Comment on above: Performed By: #### C MP3M, HEMDF #### [facility] [address] [place] [address] ALT [Catalytic activity/Vol] 14 U/L Normal 0-34 [facility] Comment on above: Result Comment: The ALT test is performed by an updated assay method. Please note that the reference intervals have been changed and are now sex specific. Performed By: #### C MP3M, HEMDF #### [facility] [address] [place] [address] Calcium [Mass/Vol] 8.0 mg/dL Low 8.4-10.4 [facility] Comment on above: Performed By: #### C MP3M, HEMDF #### [facility] [address] [place] [address] Glucose [Mass/Vol] 97 mg/dL Normal 70-100 [facility] Comment on above: Performed By: #### C MP3M, HEMDF #### [facility] [address] [place] [address] Protein [Mass/Vol] 5.5 g/dL Low 6.3-8.2 [facility] Comment on above: Performed By: #### C MP3M, HEMDF #### [facility] [address] [place] [address] Urea nitrogen [Mass/Vol] 10 mg/dL Normal 9-20 [facility] Comment on above: Performed By: #### C MP3M, HEMDF #### [facility] [address] [place] [address] Anion gap [Moles/Vol] 1 mmol/L Low 3-13 [facility] Comment on above: Performed By: #### C MP3M, HEMDF #### [facility] [address] [place] [address] AST [Catalytic activity/Vol] 33 U/L Normal 15-46 [facility] Comment on above: Performed By: #### C MP3M, HEMDF #### [facility] [address] [place] [address] Bilirubin [Mass/Vol] 0.6 mg/dL Normal 0.2-1.3 [facility] Comment on above: Performed By: #### C MP3M, HEMDF #### [facility] [address] [place] [address] CO2 [Moles/Vol] 24 mmol/L Normal 22-30 [facility] Comment on above: Performed By: #### C MP3M, HEMDF #### [facility] [address] [place] [address] Creatinine [Mass/Vol] 0.54 mg/dL Normal 0.52-1.25 [facility] Comment on above: Performed By: #### C MP3M, HEMDF #### [facility] [address] [place] [address] GFR/1.73 sq M.predicted among blacks MDRD (S/P/Bld) [Vol rate/Area] mL/min/{1.73_m2} Normal >60 [facility] Comment on above: Performed By: #### C MP3M, HEMDF #### [facility] [address] [place] [address] GFR/1.73 sq M.predicted among non-blacks MDRD (S/P/Bld) [Vol rate/Area] 86.3 mL/min/{1.73_m2} Normal >60 [facility] Comment on above: Result Comment: KDIG [...] Performed By: #### C MP3M, HEMDF #### [facility] [address] [place] [address] Chloride [Moles/Vol] 115 mmol/L High 98-107 [facility] Comment on above: Performed By: #### C MP3M, HEMDF #### [facility] [address] [place] [address] Potassium [Moles/Vol] 3.5 mmol/L Normal 3.5-5.1 [facility] Comment on above: Performed By: #### C MP3M, HEMDF #### [facility] [address] [place] [address] Sodium [Moles/Vol] 139 mmol/L Normal 135-145 [facility] Comment on above: Performed By: #### C MP3M, HEMDF #### [facility] [address] [place] [address] Albumin [Mass/Vol] 2.6 g/dL Low 3.5-5.0 [facility] Comment on above: Performed By: #### C MP3M, HEMDF #### [facility] [address] [place] [address] Hemogram w/ Autodiffon 10-17 Abs Baso Cnt 0.0 10*3/uL Normal 0.0-0.2 [facility] Comment on above: Performed By: #### C MP3M, HEMDF #### [facility] [address] [place] [address] Abs Neutrophile Cnt 4.4 10*3/uL Normal 1.8-7.0 [facility] Comment on above: Performed By: #### C MP3M, HEMDF #### [facility] [address] [place] [address] Basophils/100 WBC (Bld) 0.3 % Normal 0.0-2.0 [facility] Comment on above: Performed By: #### C MP3M, HEMDF #### [facility] [address] [place] [address] Eosinophils (Bld) [#/Vol] 0.1 10*3/uL Normal 0.0-0.5 [facility] Comment on above: Performed By: #### C MP3M, HEMDF #### [facility] [address] [place] [address] Eosinophils/100 WBC (Bld) 2.0 % Normal 1.0-6.0 [facility] Comment on above: Performed By: #### C MP3M, HEMDF #### [facility] [address] [place] [address] Erythrocyte distribution width (RBC) [Ratio] 13.8 % Normal 11.5-14.5 [facility] Comment on above: Performed By: #### C MP3M, HEMDF #### [facility] [address] [place] [address] Granulocytes/100 WBC (Bld) 69.9 % Normal 40.0-80.0 [facility] Comment on above: Performed By: #### C MP3M, HEMDF #### [facility] [address] [place] [address] Hematocrit (Bld) [Volume fraction] 28.8 % Low 35.0-47.0 [facility] Comment on above: Performed By: #### C MP3M, HEMDF #### [facility] [address] [place] [address] Hemoglobin (Bld) [Mass/Vol] 9.9 g/dL Low 11.7-16.0 [facility] Comment on above: Performed By: #### C MP3M, HEMDF #### [facility] [address] [place] [address] Lymphocytes (Bld) [#/Vol] 1.1 10*3/uL Normal 1.0-4.3 [facility] Comment on above: Performed By: #### C MP3M, HEMDF #### [facility] [address] [place] [address] Lymphocytes/100 WBC (Bld) 17.7 % Low 20.0-40.0 [facility] Comment on above: Performed By: #### C MP3M, HEMDF #### [facility] [address] [place] [address] MCH (RBC) [Entitic mass] 34.4 pg High 26.0-34.0 [facility] Comment on above: Performed By: #### C MP3M, HEMDF #### [facility] [address] [place] [address] MCHC 34.4 % Normal 32.0-36.0 [facility] Comment on above: Performed By: #### C MP3M, HEMDF #### [facility] [address] [place] [address] MCV (RBC) [Entitic vol] 99.9 fL High 79.0-98.0 [facility] Comment on above: Performed By: #### C MP3M, HEMDF #### [facility] [address] [place] [address] Monocytes (Bld) [#/Vol] 0.6 10*3/uL Normal 0.0-0.8 [facility] Comment on above: Performed By: #### C MP3M, HEMDF #### [facility] [address] [place] [address] Monocytes/100 WBC (Bld) 10.1 % High 2.0-10.0 [facility] Comment on above: Performed By: #### C MP3M, HEMDF #### [facility] [address] [place] [address] Platelet mean volume (Bld) [Entitic vol] 7.3 fL Low 7.4-10.4 [facility] Comment on above: Performed By: #### C MP3M, HEMDF #### [facility] [address] [place] [address] Platelets (Bld) [#/Vol] 190 10*3/uL Normal 140-440 [facility] Comment on above: Performed By: #### C MP3M, HEMDF #### [facility] [address] [place] [address] RBC (Bld) [#/Vol] 2.88 10*6/uL Low 3.80-5.20 [facility] Comment on above: Performed By: #### C MP3M, HEMDF #### [facility] [address] [place] [address] WBC (Bld) [#/Vol] 6.3 10*3/uL Normal 3.6-10.7 [facility] Comment on above: Performed By: #### C MP3M, HEMDF #### [facility] [address] [place] [address] Lactic Acidon 10-17-2020 Lactate [Moles/Vol] 0.9 mmol/L Normal 0.7-2.0 [facility] Comment on above: Performed By: #### C MP3M, HEMDF #### [facility] [address] [place] [address] Comp Panel with Mg Reflexon 10-16-2020 ALP [Catalytic activity/Vol] 56 U/L Normal 38-126 [facility] Comment on above: Performed By: #### H EMDF, CMP3M #### [facility] [address] [place] [address] ALT [Catalytic activity/Vol] 14 U/L Normal 0-34 [facility] Comment on above: Result Comment: The ALT test is performed by an updated assay method. Please note that the reference intervals have been changed and are now sex specific. Performed By: #### Gisella ELIAS CMP3M #### [facility] [address] [place] [address] AST [Catalytic activity/Vol] 33 U/L Normal 15-46 [facility] Comment on above: Performed By: #### Gisella ELIAS CMP3M #### [facility] [address] [place] [address] Calcium [Mass/Vol] 8.2 mg/dL Low 8.4-10.4 [facility] Comment on above: Performed By: #### iGsella ELIAS CMP3M #### [facility] [address] [place] [address] Glucose [Mass/Vol] 95 mg/dL Normal 70-100 [facility] Comment on above: Performed By: #### Gisella ELIAS CMP3M #### [facility] [address] [place] [address] Protein [Mass/Vol] 5.6 g/dL Low 6.3-8.2 [facility] Comment on above: Performed By: #### Gisella ELIAS CMP3M #### [facility] [address] [place] [address] Urea nitrogen [Mass/Vol] 23 mg/dL High 9-20 [facility] Comment on above: Performed By: #### Gisella ELIAS CMP3M #### [facility] [address] [place] [address] Anion gap [Moles/Vol] 8 mmol/L Normal 3-13 [facility] Comment on above: Performed By: #### Gisella ELIAS CMP3M #### [facility] [address] [place] [address] Bilirubin [Mass/Vol] 0.3 mg/dL Normal 0.2-1.3 [facility] Comment on above: Performed By: #### Gisella ELIAS CMP3M #### [facility] [address] [place] [address] CO2 [Moles/Vol] 18 mmol/L Low 22-30 [facility] Comment on above: Performed By: #### H ILEANA ELIAS3M #### [facility] [address] [place] [address] Creatinine [Mass/Vol] 0.87 mg/dL Normal 0.52-1.25 [facility] Comment on above: Performed By: #### H ILEANA ELIAS3M #### [facility] [address] [place] [address] GFR/1.73 sq M.predicted among blacks MDRD (S/P/Bld) [Vol rate/Area] 70.6 mL/min/{1.73_m2} Normal >60 [facility] Comment on above: Performed By: #### H ILEANA ELIAS3M #### [facility] [address] [place] [address] GFR/1.73 sq M.predicted among non-blacks MDRD (S/P/Bld) [Vol rate/Area] 60.9 mL/min/{1.73_m2} Normal >60 [facility] Comment on above: Result Comment: KDIG [...] renal tubular creatinine secretion. Performed By: #### H ILEANA ELIAS3M #### [facility] [address] [place] [address] Albumin [Mass/Vol] 2.7 g/dL Low 3.5-5.0 [facility] Comment on above: Performed By: #### H JADA CMP3M #### [facility] [address] [place] [address] Chloride [Moles/Vol] 116 mmol/L High 98-107 [facility] Comment on above: Performed By: #### H JADA CMP3M #### [facility] [address] [place] [address] Potassium [Moles/Vol] 3.9 mmol/L Normal 3.5-5.1 [facility] Comment on above: Performed By: #### H EMDSujey CMP3M #### [facility] [address] [place] [address] Sodium [Moles/Vol] 143 mmol/L Normal 135-145 [facility] Comment on above: Performed By: #### H JADA CMP3M #### [facility] [address] [place] [address] Hemogram w/ Autodiffon 10-16 Abs Baso Cnt 0.0 10*3/uL Normal 0.0-0.2 [facility] Comment on above: Performed By: #### H JADA CMP3M #### [facility] [address] [place] [address] Abs Neutrophile Cnt 6.7 10*3/uL Normal 1.8-7.0 [facility] Comment on above: Performed By: #### H JADA CMP3M #### [facility] [address] [place] [address] Basophils/100 WBC (Bld) 0.3 % Normal 0.0-2.0 [facility] Comment on above: Performed By: #### H JADA CMP3M #### [facility] [address] [place] [address] Eosinophils (Bld) [#/Vol] 0.0 10*3/uL Normal 0.0-0.5 [facility] Comment on above: Performed By: #### H EMDSujey CMP3M #### [facility] [address] [place] [address] Eosinophils/100 WBC (Bld) 0.3 % Low 1.0-6.0 [facility] Comment on above: Performed By: #### H EMDF, CMP3M #### [facility] [address] [place] [address] Erythrocyte distribution width (RBC) [Ratio] 13.7 % Normal 11.5-14.5 [facility] Comment on above: Performed By: #### H EMDF, CMP3M #### [facility] [address] [place] [address] Granulocytes/100 WBC (Bld) 77.0 % Normal 40.0-80.0 [facility] Comment on above: Performed By: #### H EMDF, CMP3M #### [facility] [address] [place] [address] Hematocrit (Bld) [Volume fraction] 30.7 % Low 35.0-47.0 [facility] Comment on above: Performed By: #### H EMDF, CMP3M #### [facility] [address] [place] [address] Hemoglobin (Bld) [Mass/Vol] 10.3 g/dL Low 11.7-16.0 [facility] Comment on above: Performed By: #### H EMDF, CMP3M #### [facility] [address] [place] [address] Lymphocytes (Bld) [#/Vol] 1.3 10*3/uL Normal 1.0-4.3 [facility] Comment on above: Performed By: #### H EMDF, CMP3M #### [facility] [address] [place] [address] Lymphocytes/100 WBC (Bld) 14.5 % Low 20.0-40.0 [facility] Comment on above: Performed By: #### H EMDF, CMP3M #### [facility] [address] [place] [address] MCH (RBC) [Entitic mass] 33.7 pg Normal 26.0-34.0 [facility] Comment on above: Performed By: #### H EMDF, CMP3M #### [facility] [address] [place] [address] MCHC 33.6 % Normal 32.0-36.0 [facility] Comment on above: Performed By: #### H EMDF, CMP3M #### [facility] [address] [place] [address] MCV (RBC) [Entitic vol] 100.3 fL High 79.0-98.0 [facility] Comment on above: Performed By: #### H EMDF CMP3M #### [facility] [address] [place] [address] Monocytes (Bld) [#/Vol] 0.7 10*3/uL Normal 0.0-0.8 [facility] Comment on above: Performed By: #### H EMDF CMP3M #### [facility] [address] [place] [address] Monocytes/100 WBC (Bld) 7.9 % Normal 2.0-10.0 [facility] Comment on above: Performed By: #### H EMDF, CMP3M #### [facility] [address] [place] [address] Platelet mean volume (Bld) [Entitic vol] 7.6 fL Normal 7.4-10.4 [facility] Comment on above: Performed By: #### H EMDF, CMP3M #### [facility] [address] [place] [address] Platelets (Bld) [#/Vol] 190 10*3/uL Normal 140-440 [facility] Comment on above: Performed By: #### H EMDF, CMP3M #### [facility] [address] [place] [address] RBC (Bld) [#/Vol] 3.06 10*6/uL Low 3.80-5.20 [facility] Comment on above: Performed By: #### H EMDF, CMP3M #### [facility] [address] [place] [address] WBC (Bld) [#/Vol] 8.7 10*3/uL Normal 3.6-10.7 [facility] Comment on above: Performed By: #### H EMDF, CMP3M #### [facility] [address] [place] [address] Procalcitoninon 10-16-2020 Procalcitonin 6.93 ng/mL High 0.00-0.09 [facility] Comment on above: Performed By: #### Fernando Hammond CMP3M #### [facility] [address] [place] [address] Interpretation See Below Normal [facility] Comment on above: Result Comment: PCT <0.50 = Low risk of severe sepsis and/or septic shock. PCT >2.00 = High risk of severe sepsis and/or septic shock. Performed By: #### Fernando Hammond CMP3M #### [facility] [facility] [address] [place] [address] Comp Panel with Mg Reflexon 10-15-2020 Calcium [Mass/Vol] 8.3 mg/dL Low 8.4-10.4 [facility] Comment on above: Performed By: #### C MP3M, HEMDF #### [facility] [address] [place] [address] ALP [Catalytic activity/Vol] 84 U/L Normal 38-126 [facility] Comment on above: Performed By: #### C MP3M, HEMDF #### [facility] [address] [place] [address] ALT [Catalytic activity/Vol] 15 U/L Normal 0-34 [facility] Comment on above: Result Comment: The ALT test is performed by an updated assay method. Please note that the reference intervals have been changed and are now sex specific. Performed By: #### C MP3M, HEMDF #### [facility] [address] [place] [address] Anion gap [Moles/Vol] 9 mmol/L Normal 3-13 [facility] Comment on above: Performed By: #### C MP3M, HEMDF #### [facility] [address] [place] [address] AST [Catalytic activity/Vol] 37 U/L Normal 15-46 [facility] Comment on above: Performed By: #### C MP3M, HEMDF #### [facility] [address] [place] [address] Bilirubin [Mass/Vol] 0.5 mg/dL Normal 0.2-1.3 [facility] Comment on above: Performed By: #### C MP3M, HEMDF #### [facility] [employer] [facility] [address] [place] [address] CO2 [Moles/Vol] 18 mmol/L Low 22-30 [facility] Comment on above: Performed By: #### C MP3M, HEMDF #### [facility] [address] [place] [address] Creatinine [Mass/Vol] 1.59 mg/dL High 0.52-1.25 [facility] Comment on above: Performed By: #### C MP3M, HEMDF #### [facility] [address] [place] [address] GFR/1.73 sq M.predicted among blacks MDRD (S/P/Bld) [Vol rate/Area] 34.1 mL/min/{1.73_m2} Abnormal >60 [facility] Comment on above: Performed By: #### C MP3M, HEMDF #### [facility] [address] [place] [address] GFR/1.73 sq M.predicted among non-blacks MDRD (S/P/Bld) [Vol rate/Area] 29.4 mL/min/{1.73_m2} Abnormal >60 [facility] Comment on above: Result Comment: KDIG [...] Performed By: #### C MP3M, HEMDF #### [facility] [address] [place] [address] Glucose [Mass/Vol] 93 mg/dL Normal 70-100 [facility] Comment on above: Performed By: #### C MP3M, HEMDF #### [facility] [address] [place] [address] Protein [Mass/Vol] 5.6 g/dL Low 6.3-8.2 [facility] Comment on above: Performed By: #### C MP3M, HEMDF #### [facility] [address] [place] [address] Urea nitrogen [Mass/Vol] 40 mg/dL High 9-20 [facility] Comment on above: Performed By: #### C MP3M, HEMDF #### [facility] [address] [place] [address] Potassium [Moles/Vol] 4.1 mmol/L Normal 3.5-5.1 [facility] Comment on above: Performed By: #### C MP3M, HEMDF #### [facility] [address] [place] [address] Albumin [Mass/Vol] 2.7 g/dL Low 3.5-5.0 [facility] Comment on above: Performed By: #### C MP3M, HEMDF #### [facility] [address] [place] [address] Chloride [Moles/Vol] 108 mmol/L High 98-107 [facility] Comment on above: Performed By: #### C MP3M, HEMDF #### [facility] [address] [place] [address] Sodium [Moles/Vol] 135 mmol/L Normal 135-145 [facility] Comment on above: Performed By: #### C MP3M, HEMDF #### [facility] [address] [place] [address] Hemogram w/ Autodiffon 10-15 Abs Baso Cnt 0.0 10*3/uL Normal 0.0-0.2 [facility] Comment on above: Performed By: #### C MP3M, HEMDF #### [facility] [address] [place] [address] Abs Neutrophile Cnt 7.5 10*3/uL High 1.8-7.0 [facility] Comment on above: Performed By: #### C MP3M, HEMDF #### [facility] [address] [place] [address] Basophils/100 WBC (Bld) 0.4 % Normal 0.0-2.0 [facility] Comment on above: Performed By: #### C MP3M, HEMDF #### [facility] [address] [place] [address] Eosinophils (Bld) [#/Vol] 0.0 10*3/uL Normal 0.0-0.5 [facility] Comment on above: Performed By: #### C MP3M, HEMDF #### [facility] [address] [place] [address] Eosinophils/100 WBC (Bld) 0.2 % Low 1.0-6.0 [facility] Comment on above: Performed By: #### C MP3M, HEMDF #### [facility] [address] [place] [address] Erythrocyte distribution width (RBC) [Ratio] 13.9 % Normal 11.5-14.5 [facility] Comment on above: Performed By: #### C MP3M, HEMDF #### [facility] [address] [place] [address] Granulocytes/100 WBC (Bld) 76.2 % Normal 40.0-80.0 [facility] Comment on above: Performed By: #### C MP3M, HEMDF #### [facility] [address] [place] [address] Hematocrit (Bld) [Volume fraction] 32.6 % Low 35.0-47.0 [facility] Comment on above: Performed By: #### C MP3M, HEMDF #### [facility] [address] [place] [address] Hemoglobin (Bld) [Mass/Vol] 11.2 g/dL Low 11.7-16.0 [facility] Comment on above: Performed By: #### C MP3M, HEMDF #### [facility] [address] [place] [address] Lymphocytes (Bld) [#/Vol] 1.4 10*3/uL Normal 1.0-4.3 [facility] Comment on above: Performed By: #### C MP3M, HEMDF #### [facility] [address] [place] [address] Lymphocytes/100 WBC (Bld) 14.7 % Low 20.0-40.0 [facility] Comment on above: Performed By: #### C MP3M, HEMDF #### [facility] [address] [place] [address] MCH (RBC) [Entitic mass] 34.6 pg High 26.0-34.0 [facility] Comment on above: Performed By: #### C MP3M, HEMDF #### [facility] [address] [place] [address] MCHC 34.5 % Normal 32.0-36.0 [facility] Comment on above: Performed By: #### C MP3M, HEMDF #### [facility] [address] [place] [address] MCV (RBC) [Entitic vol] 100.5 fL High 79.0-98.0 [facility] Comment on above: Performed By: #### C MP3M, HEMDF #### [facility] [address] [place] [address] Monocytes (Bld) [#/Vol] 0.8 10*3/uL Normal 0.0-0.8 [facility] Comment on above: Performed By: #### C MP3M, HEMDF #### [facility] [address] [place] [address] Monocytes/100 WBC (Bld) 8.5 % Normal 2.0-10.0 [facility] Comment on above: Performed By: #### C MP3M, HEMDF #### [facility] [address] [place] [address] Platelet mean volume (Bld) [Entitic vol] 7.7 fL Normal 7.4-10.4 [facility] Comment on above: Performed By: #### C MP3M, HEMDF #### [facility] [address] [place] [address] Platelets (Bld) [#/Vol] 211 10*3/uL Normal 140-440 [facility] Comment on above: Performed By: #### C MP3M, HEMDF #### [facility] [address] [place] [address] RBC (Bld) [#/Vol] 3.25 10*6/uL Low 3.80-5.20 [facility] Comment on above: Performed By: #### C MP3M, HEMDF #### [facility] [address] [place] [address] WBC (Bld) [#/Vol] 9.8 10*3/uL Normal 3.6-10.7 [facility] Comment on above: Performed By: #### C MP3M, HEMDF #### [facility] [address] [place] [address] Add on test from HISon 10-14 Add on test from HIS Accepted Normal [facility] Comment on above: Result Comment: Spec imen available & acceptable for analysis. Performed By: #### Fernando Hammond, CMP3M #### [facility] [address] [place] [address] Basic Metabolic Panelon 09-0 Anion gap [Moles/Vol] 6 mmol/L Normal 3-13 [facility] Comment on above: Performed By: #### B MP3M #### [facility] [address] [place] [address] Calcium [Mass/Vol] 8.2 mg/dL Low 8.4-10.4 [facility] Comment on above: Performed By: #### B MP3M #### [facility] [address] [place] [address] CO2 [Moles/Vol] 22 mmol/L Normal 22-30 [facility] Comment on above: Performed By: #### B MP3M #### [facility] [address] [place] [address] Glucose [Mass/Vol] 109 mg/dL High 70-100 [facility] Comment on above: Performed By: #### B MP3M #### [facility] [address] [place] [address] Urea nitrogen [Mass/Vol] 33 mg/dL High 9-20 [facility] Comment on above: Performed By: #### B MP3M #### [facility] [address] [place] [address] Creatinine [Mass/Vol] 1.30 mg/dL High 0.52-1.25 [facility] Comment on above: Performed By: #### B MP3M #### [facility] [address] [place] [address] GFR/1.73 sq M.predicted among blacks MDRD (S/P/Bld) [Vol rate/Area] 43.5 mL/min/{1.73_m2} Abnormal >60 [facility] Comment on above: Performed By: #### B MP3M #### [facility] [address] [place] [address] GFR/1.73 sq M.predicted among non-blacks MDRD (S/P/Bld) [Vol rate/Area] 37.5 mL/min/{1.73_m2} Abnormal >60 [facility] Comment on above: Result Comment: KDIG [...] secretion. Performed By: #### B MP3M #### [facility] [address] [place] [address] Chloride [Moles/Vol] 107 mmol/L Normal 98-107 [facility] Comment on above: Performed By: #### B MP3M #### [facility] [address] [place] [address] Potassium [Moles/Vol] 4.3 mmol/L Normal 3.5-5.1 [facility] Comment on above: Performed By: #### B MP3M #### [facility] [address] [place] [address] Sodium [Moles/Vol] 135 mmol/L Normal 135-145 [facility] Comment on above: Performed By: #### B MP3M #### [facility] [address] [place] [address] Calcium [Mass/Vol] 9.1 mg/dL Normal 8.4-10.4 [facility] Comment on above: Performed By: #### B MP3M #### [facility] [address] [place] [address] Glucose [Mass/Vol] 96 mg/dL Normal 70-100 [facility] Comment on above: Performed By: #### B MP3M #### [facility] [address] [place] [address] Anion gap [Moles/Vol] 10 mmol/L Normal 3-13 [facility] Comment on above: Performed By: #### B MP3M #### [facility] [address] [place] [address] CO2 [Moles/Vol] 21 mmol/L Low 22-30 [facility] Comment on above: Performed By: #### B MP3M #### [facility] [address] [place] [address] Creatinine [Mass/Vol] 1.38 mg/dL High 0.52-1.25 [facility] Comment on above: Performed By: #### B MP3M #### [facility] [address] [place] [address] GFR/1.73 sq M.predicted among blacks MDRD (S/P/Bld) [Vol rate/Area] 40.4 mL/min/{1.73_m2} Abnormal >60 [facility] Comment on above: Performed By: #### B MP3M #### [facility] [address] [place] [address] GFR/1.73 sq M.predicted among non-blacks MDRD (S/P/Bld) [Vol rate/Area] 34.9 mL/min/{1.73_m2} Abnormal >60 [facility] Comment on above: Result Comment: KDIG [...] secretion. Performed By: #### B MP3M #### [facility] [address] [place] [address] Urea nitrogen [Mass/Vol] 33 mg/dL High 9-20 [facility] Comment on above: Performed By: #### B MP3M #### [facility] [address] [place] [address] Potassium [Moles/Vol] 4.2 mmol/L Normal 3.5-5.1 [facility] Comment on above: Performed By: #### B MP3M #### [facility] [address] [place] [address] Sodium [Moles/Vol] 132 mmol/L Low 135-145 [facility] Comment on above: Performed By: #### B MP3M #### [facility] [address] [place] [address] Chloride [Moles/Vol] 101 mmol/L Normal 98-107 [facility] Comment on above: Performed By: #### B MP3M #### [facility] [address] [place] [address] C-Reactive Proteinon 021 CRP [Mass/Vol] mg/L Normal 0.0-6.0 [facility] Comment on above: Result Comment: . Performed By: #### B MP3M #### [facility] [address] [place] [address] CT Abdomen/Pelvis w/ Contras ton 10-14-2020 CT Abdomen/Pelvis w/ Contrast Patient Name: KATHERINE JUDGE Computed Tomography ACCESSION EXAM DATE/TIME PROCEDURE ORDERING PROVIDER [id number] 10/13/2020 23:[address] Abdomen/Pelvis w/ IV MARK DICKERSON, Contrast (IV Onl JULITA CPT code 34305 Q9967 Reason For Exam (CT Abdomen/Pelvis w/ [...] Transcribed Date and Time: 10/13/2020 11:53 Normal [facility] GASTROINTESTINAL PCR PANELon 10-14-2020 GASTROINTESTINAL PCR PANEL GASTROINTESTINAL PCR PANEL --> Status: F NEGATIVE: No targets were detected by the [employer] Gastrointestinal PCR Panel. _ The [employer] Gastrointestinal [...] Astrovirus, Norovirus GI/GII, Rotavirus A, Sapovirus Normal [facility] Comment on above: Performed By: #### B FGI #### [facility] [address] [place] [address] Glucoseon 10-14-2020 Glucose [Mass/Vol] 107 mg/dL High 70-100 [facility] Comment on above: Performed By: #### B MP3M #### [facility] [address] [place] [address] Hepatic Functionon 1 ALP [Catalytic activity/Vol] 216 U/L High 38-126 [facility] Comment on above: Performed By: #### B MP3M #### [facility] [address] [place] [address] ALT [Catalytic activity/Vol] 17 U/L Normal 0-34 [facility] Comment on above: Result Comment: The ALT test is performed by an updated assay method. Please note that the reference intervals have been changed and are now sex specific. Performed By: #### B MP3M #### [facility] [address] [place] [address] AST [Catalytic activity/Vol] 50 U/L High 15-46 [facility] Comment on above: Performed By: #### B MP3M #### [facility] [address] [place] [address] Bilirubin [Mass/Vol] 0.9 mg/dL Normal 0.2-1.3 [facility] Comment on above: Performed By: #### B MP3M #### [facility] [address] [place] [address] Bilirubin.indirect [Mass/Vol] 0.0 mg/dL Normal 0.0-0.3 [facility] Comment on above: Performed By: #### B MP3M #### [facility] [address] [place] [address] Protein [Mass/Vol] 5.9 g/dL Low 6.3-8.2 [facility] Comment on above: Performed By: #### B MP3M #### [facility] [address] [place] [address] Albumin [Mass/Vol] 3.0 g/dL Low 3.5-5.0 [facility] Comment on above: Performed By: #### B MP3M #### [facility] [address] [place] [address] Lactic Acidon 10-14-2020 Lactate [Moles/Vol] 1.5 mmol/L Normal 0.7-2.0 [facility] Comment on above: Performed By: #### M G3, CMP3M #### [facility] [address] [place] [address] Magnesiumon 10-14-2020 Magnesium [Mass/Vol] 1.6 mg/dL Normal 1.6-2.3 [facility] Comment on above: Performed By: #### B MP3M #### [facility] [address] [place] [address] Phosphoruson 10-14-2020 Phosphate [Mass/Vol] 4.6 mg/dL High 2.5-4.5 [facility] Comment on above: Performed By: #### B MP3M #### [facility] [address] [place] [address] Procalcitoninon 10-14-2020 Procalcitonin 7.54 ng/mL High 0.00-0.09 [facility] Comment on above: Performed By: #### B MP3M #### [facility] [address] [place] [address] Interpretation See Below Normal [facility] Comment on above: Result Comment: PCT <0.50 = Low risk of severe sepsis and/or septic shock. PCT >2.00 = High risk of severe sepsis and/or septic shock. Performed By: #### B MP3M #### [facility] [address] [place] [address] SARS-CoV-2 (LAB DEPT)on SARS-CoV-2 (COVID-19) RNA ALTHEA+probe Ql (Unsp spec) see below Normal [facility] Comment on above: Result Comment: Not Detected Expected Result: Not Detected _ Isothermal nucleic acid amplification performed on the [employer] System by the [facility] Negative results do not preclude SARS-CoV-2 infection and should not be used as the sole basis for treatment or other patient management decisions. This assay was developed by [employer] and distributed under an Emergency Use Authorization (EUA) granted by the [facility] for the qualitative detection of SARS-CoV-2 nucleic acid. Provider and patient fact sheets can be found at https://www.fda.gov/media/534391/download and https://www.fda.gov/media/544779/download. Performed By: #### B MP3M #### [facility] [address] [place] [address] TS GELon 10-14-2020 TS GEL ABO Group: O Rh, Gel: POS Antibody Screen Gel: NEG Normal [facility] Comment on above: Performed By: #### T SGL #### [facility] [employer] Troponin Ion 10-14-2020 Troponin I.cardiac [Mass/Vol] ng/mL Normal 0.000-0.03 4 [facility] Comment on above: Result Comment: . Performed By: #### B MP3M #### [facility] [employer] [facility] [address] [place] [address] ED Provider Noteon 1 ED Provider Note JULIETTE VALLONIA ED eMERGENCY dEPARTMENT eNCOUnter Pt Name: Ktaherine Judge Birthdate 1935 Date of evaluation: 10/13/2020 [...] patient come from an ECF, SNF, Rehab, Assisted or other Congregate setting: no (If yes [...] otherwise acutely negative except as stated in CROW. PAST MEDICAL HISTORY Past Medical History: Diagnosis [...] Gatherings with Friends and Family: ? Attends Christianity Services: ? Active Member of Clubs or Organizations: ? Attends Club or Organization Meetings: ? Marital Status: Intimate Partner Violence: ? Fear of Current or Ex-Partner: ? Emotionally Abused: ? Physically Abused: ? Sexually Abused: SCREENINGS PHYS (more content not included)... Normal [facility] ED [facility]: [facility] : 1935 Date [...] made by myself in conjunction with the FRDEI. For all further details of the patient's emergency department visit, please see their documentation. (Please note that portions of this note may have been completed with a voice recognition program. Efforts were made to edit the dictations but occasionally words are mis-transcribed.) Hugh Cesar MD [employer] Hugh Cesar MD 10/13/20 5111 Normal [facility] Fecal Occult,Stool Single Sp econ 10-13-2020 Fecal Occult,Stool Single Spec Positive Normal Negative [facility] Comment on above: Performed By: #### M G3, CMP3M #### [facility] [employer] [address] [place] [address] Hemogram w/ Autodiffon 10-13 Abs Baso Cnt 0.0 10*3/uL Normal 0.0-0.2 [facility] Comment on above: Performed By: #### M G3, CMP3M #### [facility] [address] [place] [address] Abs Neutrophile Cnt 7.2 10*3/uL High 1.8-7.0 [facility] Comment on above: Performed By: #### M G3, CMP3M #### [facility] [address] [place] [address] Basophils/100 WBC (Bld) 0.1 % Normal 0.0-2.0 [facility] Comment on above: Performed By: #### M G3, CMP3M #### [facility] [address] [place] [address] Eosinophils (Bld) [#/Vol] 0.0 10*3/uL Normal 0.0-0.5 [facility] Comment on above: Performed By: #### M G3, CMP3M #### [facility] [address] [place] [address] Eosinophils/100 WBC (Bld) 0.0 % Low 1.0-6.0 [facility] Comment on above: Performed By: #### M G3, CMP3M #### [facility] [address] [place] [address] Erythrocyte distribution width (RBC) [Ratio] 13.8 % Normal 11.5-14.5 [facility] Comment on above: Performed By: #### M G3, CMP3M #### [facility] [address] [place] [address] Granulocytes/100 WBC (Bld) 87.0 % High 40.0-80.0 [facility] Comment on above: Performed By: #### Feranndo G3, CMP3M #### [facility] [address] [place] [address] Hematocrit (Bld) [Volume fraction] 47.8 % High 35.0-47.0 [facility] Comment on above: Performed By: #### M G3, CMP3M #### [facility] [address] [place] [address] Hemoglobin (Bld) [Mass/Vol] 16.0 g/dL Normal 11.7-16.0 [facility] Comment on above: Performed By: #### M G3, CMP3M #### [facility] [address] [place] [address] Lymphocytes (Bld) [#/Vol] 0.7 10*3/uL Low 1.0-4.3 [facility] Comment on above: Performed By: #### Fernando G3, CMP3M #### [facility] [address] [place] [address] Lymphocytes/100 WBC (Bld) 8.9 % Low 20.0-40.0 [facility] Comment on above: Performed By: #### Fernando G3, CMP3M #### [facility] [address] [place] [address] MCH (RBC) [Entitic mass] 33.6 pg Normal 26.0-34.0 [facility] Comment on above: Performed By: #### Fernando G3, CMP3M #### [facility] [address] [place] [address] MCHC 33.4 % Normal 32.0-36.0 [facility] Comment on above: Performed By: #### Fernando G3, CMP3M #### [facility] [employer] [facility] [address] [place] [address] MCV (RBC) [Entitic vol] 100.9 fL High 79.0-98.0 [facility] Comment on above: Performed By: #### Fernando G3, CMP3M #### [facility] [address] [place] [address] Monocytes (Bld) [#/Vol] 0.3 10*3/uL Normal 0.0-0.8 [facility] Comment on above: Performed By: #### Fernando G3, CMP3M #### [facility] [employer] [facility] [address] [place] [address] Monocytes/100 WBC (Bld) 4.0 % Normal 2.0-10.0 [facility] Comment on above: Performed By: #### Fernando G3, CMP3M #### [facility] [address] [place] [address] Platelet mean volume (Bld) [Entitic vol] 7.6 fL Normal 7.4-10.4 [facility] Comment on above: Performed By: #### M G3, CMP3M #### [facility] [address] [place] [address] Platelets (Bld) [#/Vol] 302 10*3/uL Normal 140-440 [facility] Comment on above: Performed By: #### M G3, CMP3M #### [facility] [address] [place] [address] RBC (Bld) [#/Vol] 4.74 10*6/uL Normal 3.80-5.20 [facility] Comment on above: Performed By: #### M G3, CMP3M #### [facility] [address] [place] [address] WBC (Bld) [#/Vol] 8.3 10*3/uL Normal 3.6-10.7 [facility] Comment on above: Performed By: #### M G3, CMP3M #### [facility] [address] [place] [address] Lactic Acidon 10-13-2020 Lactate [Moles/Vol] 3.9 mmol/L Critically high 0.7-2.0 [facility] Comment on above: Performed By: #### B MP3M #### [facility] [address] [place] [address] Blood Pressure Cuff Sizeon 0 09-10-2020 Blood Pressure Cuff Size Adult [facility] Work Phone: Tobacco Screening.on Tobacco use status [facility] b) No [facility] Work Phone: Tobacco Screening.on 021 Fall risk assessment a) No falls within the last year [facility] Work Phone: Tobacco use status [facility] b) No [facility] Work Phone: Lipid Panelon 03-12-2020 Cholesterol [Mass/Vol] 148 mg/dL 0 - 199 [facility] Work Phone: Comment on above: [...] dosing. Cholesterol in HDL [Mass/Vol] 40.7 mg/dL [facility] Work Phone: Comment on above: . AGE VERY LOW LOW N ORMAL HIGH 0-19 Y < 35 < 40 40-45 ---- 20- 24 Y ---- < 40 >45 ---- >24 Y ---- < 40 40-60 >60. Cholesterol in LDL [Mass/Vol] 76 mg/dL 0 - 99 [facility] Work Phone: Comment on above: . NEAR BORD AGE TORI RABLE OPTIMAL HIGH HIGH VERY HIGH 0-19 Y 0 - 109 --- 110-129 >/= 130 ---- 20-24 Y 0 - 119 --- 120-159 >/= 160 ---- >24 Y 0 - 99 100-129 130-159 160-189 >/=190. Cholesterol.total/Cho lesterol in HDL [Mass ratio] 3.6 {ratio} [facility] Work Phone: Comment on above: REF VALUESDESIRABLE < 3.4HIGH RISK > 5.0 Triglyceride [Mass/Vol] 159 mg/dL above high threshold 0 - 149 [facility] Work Phone: Comment on above: . [...] Lipid Panel 32 mg/dL 0 - 40 [facility] Work Phone: Metabolic Panelon 03-12-2020 ALP [Catalytic activity/Vol] 54 U/L 33 - 136 [facility] Work Phone: Anion gap [Moles/Vol] 16 mmol/L 10 - 20 [facility] Work Phone: Bilirubin [Mass/Vol] 0.6 mg/dL 0.0 - 1.2 [facility] Work Phone: Calcium [Mass/Vol] 9.9 mg/dL 8.6 - 10.6 [facility] Work Phone: Chloride [Moles/Vol] 103 mmol/L 98 - 107 [facility] Work Phone: CO2 [Moles/Vol] 27 mmol/L 21 - 32 [facility] Work Phone: Creatinine [Mass/Vol] 1.18 mg/dL above high threshold See Below [facility] Work Phone: Comment on above: Reference Range: 0.5 0 - 1.05 Glucose [Mass/Vol] 76 mg/dL 74 - 99 [facility] Work Phone: Potassium [Moles/Vol] 4.2 mmol/L 3.5 - 5.3 [facility] Work Phone: Protein [Mass/Vol] 7.1 g/dL 6.4 - 8.2 [facility] Work Phone: Sodium [Moles/Vol] 142 mmol/L 136 - 145 [facility] Work Phone: Urea nitrogen [Mass/Vol] 28 mg/dL above high threshold 6 - 23 [facility] Work Phone: Otheron 03-12-2020 Albumin BCP dye [Mass/Vol] 4.0 g/dL 3.4 - 5.0 [facility] Work Phone: ALT With P-5'-P [Catalytic activity/Vol] 17 U/L 7 - 45 [facility] Work Phone: Comment on above: Patients treated wit h Sulfasalazine may generate falsely decreased results for ALT. AST With P-5'-P [Catalytic activity/Vol] 23 U/L 9 - 39 [facility] Work Phone: 44 {mL/min/1.73m2} Abnormal >60 [facility] Work Phone: 53 {mL/min/1.73m2} Abnormal >60 [facility] Work Phone: Comment on above: CALCULATIONS OF ALVARO MATED GFR ARE PERFORMED USING THE MDRD STUDY EQUATION FOR THE IDMS-TRACEABLE CREATININE METHODS. CLIN CHEM 2007;53:766-72 CT Abdomen and Pelvis with I V Contraston 11-10-2019 CT Abdomen and Pelvis W contrast IV Interpreted by: DAYAMI OLZANO11/10/19 15:55STUDY:CT Abdomen and Pelvis with IV Contrast; [...] signed by: DAYAMI LOZANO 11/10/19 15:55 Normal [facility] Work Phone: Comment on above: ORDER REVISED TO A C T ABDOMEN AND PELVIS W IV CONTRAST BY RADIOLOGIST; Original Order Number: [id number] Complete Blood Count + Diffe lex 11-10-2019 Basophils (Bld) [#/Vol] 0.05 {x10E9/L} See Below [facility] Work Phone: Comment on above: Reference Range: 0.0 0 - 0.10 Ordering Provider: Rachid JORDAN 84366 Basophils/100 WBC (Bld) 0.6 % 0.0 - 2.0 [facility] Work Phone: Comment on above: Ordering Provider: Rachid JORDAN 42020 Eosinophils (Bld) [#/Vol] 0.12 {x10E9/L} See Below [facility] Work Phone: Comment on above: Reference Range: 0.0 0 - 0.40 Ordering Provider: Rachid JORDAN 93286 Eosinophils/100 WBC (Bld) 1.5 % 0.0 - 6.0 [facility] Work Phone: Comment on above: Ordering Provider: Rachid JORDAN 43421 Erythrocyte distribution width (RBC) [Ratio] 13.2 % See Below [facility] Work Phone: Comment on above: Reference Range: 11. 5 - 14.5 Ordering Provider: Rachid JORDAN 87604 Hematocrit (Bld) [Volume fraction] 40.7 % See Below [facility] Work Phone: Comment on above: Reference Range: 36. 0 - 46.0 Ordering Provider: Rachid JORDAN 16874 Hemoglobin (Bld) [Mass/Vol] 12.6 g/dL See Below [facility] Work Phone: Comment on above: Reference Range: 12. 0 - 16.0 Ordering Provider: Rachid JORDAN 38736 Lymphocytes (Bld) [#/Vol] 2.25 {x10E9/L} See Below [facility] Work Phone: Comment on above: Reference Range: 0.8 0 - 3.00 Ordering Provider: Rachid JORDAN 47634 Lymphocytes/100 WBC (Bld) 27.3 % See Below [facility] Work Phone: Comment on above: Reference Range: 13. 0 - 44.0 Ordering Provider: Rachid JORDAN 00979 MCHC (RBC) [Mass/Vol] 31.0 g/dL below low threshold See Below [facility] Work Phone: Comment on above: Reference Range: 32. 0 - 36.0 Ordering Provider: Rachid JORDAN 15733 MCV (RBC) [Entitic vol] 105 fL above high threshold 80 - 100 [facility] Work Phone: Comment on above: Ordering Provider: Rachid JORDAN 83587 Monocytes (Bld) [#/Vol] 0.57 {x10E9/L} See Below [facility] Work Phone: Comment on above: Reference Range: 0.0 5 - 0.80 Ordering Provider: Rachid JORDAN 08558 Monocytes/100 WBC (Bld) 6.9 % 2.0 - 10.0 [facility] Work Phone: Comment on above: Ordering Provider: Rachid JORDAN 10783 Neutrophils (Bld) [#/Vol] 5.20 {x10E9/L} See Below [facility] Work Phone: Comment on above: Reference Range: 1.6 0 - 5.50 Ordering Provider: Rachid JORDAN 35749 Neutrophils/100 WBC (Bld) 63.0 % See Below [facility] Work Phone: Comment on above: Reference Range: 40. 0 - 80.0 Ordering Provider: Rachid JORDAN 41001 Platelets (Bld) [#/Vol] 288 {x10E9/L} 150 - 450 [facility] Work Phone: Comment on above: Platelet count may b e higher than reported due to presence of PlateletClumps. Ordering Provider: Rachid JORDAN 02268 RBC (Bld) [#/Vol] 3.87 {x10E12/L} below low threshold See Below [facility] Work Phone: Comment on above: Reference Range: 4.0 0 - 5.20 Ordering Provider: Rachid JORDAN 99597 WBC (Bld) [#/Vol] 0.0 {/100_WBC} 0.0 - 0.0 [facility] Work Phone: Comment on above: Ordering Provider: Rachid JORDAN 71757 WBC (Bld) [#/Vol] 8.3 {x10E9/L} 4.4 - 11.3 [facility] Work Phone: Comment on above: Ordering Provider: Rachid JORDAN 05413 Complete Blood Count + Differential 0.7 % 0.0 - 0.9 [facility] Work Phone: Comment on above: Immature Granulocyte Count (IG) includes promyelocytes, myelocytes and metamyelocytes but does not include bands. Percent differential counts (%) should be interpreted in the context of the absolute cell counts (cells/L). Ordering Provider: Rachid JORDAN 64251 Lipase, Serumon 11-10-2019 Lipase [Catalytic activity/Vol] 37 U/L 9 - 82 [facility] Work Phone: Comment on above: Venipuncture immedia tely after or during the administration of Metamizole may lead to falsely low results. Testing should be performed immediately prior to Metamizole dosing. G-fkksxz-k-benzoquinone imine (metabolite of Acetaminophen) will generate erroneously low results in samples for patients that have taken toxic doses of acetaminophen. Ordering Provider: Rachid JORDAN 02534 Metabolic Panelon 11-10-2019 ALP [Catalytic activity/Vol] 75 U/L 33 - 136 [facility] Work Phone: Comment on above: Ordering Provider: Rachid JORDAN 59161 Anion gap [Moles/Vol] 16 mmol/L 10 - 20 [facility] Work Phone: Comment on above: Ordering Provider: Rachid JORDAN 51604 Bilirubin [Mass/Vol] 0.6 mg/dL 0.0 - 1.2 [facility] Work Phone: Comment on above: Ordering Provider: Rachid JORDAN 28133 Calcium [Mass/Vol] 9.9 mg/dL 8.6 - 10.3 [facility] Work Phone: Comment on above: Ordering Provider: Rachid JORDAN 76166 Chloride [Moles/Vol] 99 mmol/L 98 - 107 [facility] Work Phone: Comment on above: Ordering Provider: Rachid JORDAN 34937 CO2 [Moles/Vol] 25 mmol/L 21 - 32 [facility] Work Phone: Comment on above: Ordering Provider: Rachid JORDAN 12655 Creatinine [Mass/Vol] 0.95 mg/dL See Below [facility] Work Phone: Comment on above: Reference Range: 0.5 0 - 1.05 Ordering Provider: Rachid JORDAN 03355 Glucose [Mass/Vol] 105 mg/dL above high threshold 74 - 99 [facility] Work Phone: Comment on above: Ordering Provider: Rachid JORDAN 80687 Potassium [Moles/Vol] 4.8 mmol/L 3.5 - 5.3 [facility] Work Phone: Comment on above: MILD HEMOLYSIS DETEC MAURA. The result may be falsely elevated due tohemolysis or other interferents. Clinical correlation is recommended.Repeat testing may be considered. Ordering Provider: Rachid JORDAN 77922 Protein [Mass/Vol] 8.2 g/dL 6.4 - 8.2 [facility] Work Phone: Comment on above: Ordering Provider: Rachid JORDAN 82675 Sodium [Moles/Vol] 135 mmol/L below low threshold 136 - 145 [facility] Work Phone: Comment on above: Ordering Provider: Rachid JORDAN 63644 Urea nitrogen [Mass/Vol] 18 mg/dL 6 - 23 [facility] Work Phone: Comment on above: Ordering Provider: Rachid JORDAN 32637 Other 11-10-2019 Albumin BCP dye [Mass/Vol] 3.7 g/dL 3.4 - 5.0 [facility] Work Phone: Comment on above: Ordering Provider: Rachid JORDAN 55275 ALT With P-5'-P [Catalytic activity/Vol] 13 U/L 7 - 45 [facility] Work Phone: Comment on above: Patients treated wit h Sulfasalazine may generate falsely decreased results for ALT. Ordering Provider: Rachid JORDAN 38403 AST With P-5'-P [Catalytic activity/Vol] 25 U/L 9 - 39 [facility] Work Phone: Comment on above: MILD HEMOLYSIS DETEC MAURA. The result may be falsely elevated due tohemolysis or other interferents. Clinical correlation is recommended.Repeat testing may be considered. Ordering Provider: Rachid JORDAN 39376 56 {mL/min/1.73m2} Abnormal >60 [facility] Work Phone: Comment on above: Ordering Provider: Rachid JORDAN 41309 68 {mL/min/1.73m2} >60 [facility] Work Phone: Comment on above: CALCULATIONS OF ALVARO MATED GFR ARE PERFORMED USING THE MDRD STUDY EQUATION FOR THE IDMS-TRACEABLE CREATININE METHODS. CLIN CHEM 2007;53:766-72 Ordering Provider: Rachid JORDAN 26377 Urinalysison 11-10-2019 Appearance (U) CLEAR CLEAR [facility] Work Phone: Comment on above: Ordering Provider: Rachid JORDAN 45113 Color (U) STRAW See Below [facility] Work Phone: Comment on above: Reference Range: STR AW,YELLOW Ordering Provider: Rachid JORDAN 67941 Glucose Ql (U) Negative NEGATIVE [facility] Work Phone: Comment on above: Ordering Provider: Rachid JORDAN 20596 Ketones Ql (U) Negative NEGATIVE [facility] Work Phone: Comment on above: Ordering Provider: Rachid JORDAN 67571 Leukocyte esterase Test strip Ql (U) Negative NEGATIVE [facility] Work Phone: Comment on above: Ordering Provider: Rachid JORDAN 29812 pH (U) 6.0 [pH] 5.0 - 8.0 [facility] Work Phone: Comment on above: Ordering Provider: Rachid JORDAN 80627 Protein (U) [Mass/Vol] Negative NEGATIVE [facility] Work Phone: Comment on above: Ordering Provider: Rachid JORDAN 33224 RBC (U) [#/Vol] SMALL (1+) Abnormal NEGATIVE [facility] Work Phone: Comment on above: Ordering Provider: Rachid JORDAN 44941 Specific gravity (U) [Rel density] 1.028 1 See Below [facility] Work Phone: Comment on above: Reference Range: 1.0 05 - 1.035 Ordering Provider: Rachid JORDAN 82552 Urinalysis <2.0 0.0 - 1.9 [facility] Work Phone: Comment on above: Ordering Provider: Rachid JORDAN 84132 Urinalysis Negative NEGATIVE [facility] Work Phone: Comment on above: Ordering Provider: Rachid JORDAN 22172 Urinalysis, Microscopicon RBC (Bld) [#/Vol] <1 0-5 -[facility] Work Phone: Comment on above: Ordering Provider: Rachid JORDAN 18795 Urinalysis, Microscopic <1 0-5 [facility] Work Phone: Comment on above: Ordering Provider: Rachid JORDAN 56652 Urinalysis, Microscopic 1 {/HPF} [facility] Work Phone: Comment on above: Ordering Provider: Rachid JORDAN 48330 CRP, High Sensitivityon 10-12 CRP High sensitivity method [Mass/Vol] mg/L Abnormal [facility] Work Phone: Comment on above: hsCRP INTERPRETATION mg/L < 1.0 LOW RELATIVE RISK OF CVD 1.0-3.0 AVERAGE RELATIVE RISK OF CVD > 3.0 HIGH RELATIVE RISK OF CVD Source:KATIE TLeigh Gaona. et al. CIRCULATION 2003;107:[id number]. Complete Blood Count + [facility] 11-09-2019 Basophils (Bld) [#/Vol] 0.06 {x10E9/L} See Below [facility] Work Phone: Comment on above: Reference Range: 0.0 0 - 0.10 Basophils/100 WBC (Bld) 0.6 % 0.0 - 2.0 [facility] Work Phone: Eosinophils (Bld) [#/Vol] 0.20 {x10E9/L} See Below [facility] Work Phone: Comment on above: Reference Range: 0.0 0 - 0.40 Eosinophils/100 WBC (Bld) 2.0 % 0.0 - 6.0 [facility] Work Phone: Erythrocyte distribution width (RBC) [Ratio] 13.2 % See Below [facility] Work Phone: Comment on above: Reference Range: 11. 5 - 14.5 Hematocrit (Bld) [Volume fraction] 38.6 % See Below [facility] Work Phone: Comment on above: Reference Range: 36. 0 - 46.0 Hemoglobin (Bld) [Mass/Vol] 12.2 g/dL See Below [facility] Work Phone: Comment on above: Reference Range: 12. 0 - 16.0 Lymphocytes (Bld) [#/Vol] 2.47 {x10E9/L} See Below [facility] Work Phone: Comment on above: Reference Range: 0.8 0 - 3.00 Lymphocytes/100 WBC (Bld) 24.4 % See Below [facility] Work Phone: Comment on above: Reference Range: 13. 0 - 44.0 MCHC (RBC) [Mass/Vol] 31.6 g/dL below low threshold See Below [facility] Work Phone: Comment on above: Reference Range: 32. 0 - 36.0 MCV (RBC) [Entitic vol] 106 fL above high threshold 80 - 100 [facility] Work Phone: Monocytes (Bld) [#/Vol] 0.84 {x10E9/L} above high threshold See Below [facility] Work Phone: Comment on above: Reference Range: 0.0 5 - 0.80 Monocytes/100 WBC (Bld) 8.3 % 2.0 - 10.0 [facility] Work Phone: Neutrophils/100 WBC (Bld) 64.2 % See Below [facility] Work Phone: Comment on above: Reference Range: 40. 0 - 80.0 Platelets (Bld) [#/Vol] 321 {x10E9/L} 150 - 450 [facility] Work Phone: RBC (Bld) [#/Vol] 3.64 {x10E12/L} below low threshold See Below [facility] Work Phone: Comment on above: Reference Range: 4.0 0 - 5.20 WBC (Bld) [#/Vol] 0.0 {/100_WBC} 0.0-0.0 [facility] Work Phone: WBC (Bld) [#/Vol] 10.1 {x10E9/L} 4.4 - 11.3 [facility] Work Phone: Complete Blood Count + Differential 6.51 {x10E9/L} above high threshold See Below [facility] Work Phone: Comment on above: Reference Range: 1.6 0 - 5.50 Complete Blood Count + Differential 0.5 % 0.0 - 0.9 [facility] Work Phone: Comment on above: Immature Granulocyte Count (IG) includes promyelocytes, myelocytes and metamyelocytes but does not include bands. Percent differential counts (%) should be interpreted in the context of the absolute cell counts (cells/L). Metabolic Panelon 11-09-2019 ALP [Catalytic activity/Vol] 91 U/L 33 - 136 [facility] Work Phone: Anion gap [Moles/Vol] 15 mmol/L 10 - 20 [facility] Work Phone: Bilirubin [Mass/Vol] 0.5 mg/dL 0.0 - 1.2 [facility] Work Phone: Calcium [Mass/Vol] 9.0 mg/dL 8.6 - 10.6 [facility] Work Phone: Chloride [Moles/Vol] 99 mmol/L 98 - 107 [facility] Work Phone: CO2 [Moles/Vol] 27 mmol/L 21 - 32 [facility] Work Phone: Creatinine [Mass/Vol] 0.91 mg/dL See Below [facility] Work Phone: Comment on above: Reference Range: 0.5 0 - 1.05 Glucose [Mass/Vol] 115 mg/dL above high threshold 74 - 99 [facility] Work Phone: Potassium [Moles/Vol] 4.3 mmol/L 3.5 - 5.3 [facility] Work Phone: Protein [Mass/Vol] 7.5 g/dL 6.4 - 8.2 [facility] Work Phone: Sodium [Moles/Vol] 137 mmol/L 136 - 145 [facility] Work Phone: Urea nitrogen [Mass/Vol] 20 mg/dL 6 - 23 [facility] Work Phone: Otheron 11-09-2019 Albumin BCP dye [Mass/Vol] 3.8 g/dL 3.4 - 5.0 [facility] Work Phone: ALT With P-5'-P [Catalytic activity/Vol] 14 U/L 7 - 45 [facility] Work Phone: Comment on above: Patients treated wit h Sulfasalazine may generate falsely decreased results for ALT. AST With P-5'-P [Catalytic activity/Vol] 19 U/L 9 - 39 [facility] Work Phone: 71 {mL/min/1.73m2} >60 [facility] Work Phone: Comment on above: CALCULATIONS OF ALVARO MATED GFR ARE PERFORMED USING THE MDRD STUDY EQUATION FOR THE IDMS-TRACEABLE CREATININE METHODS. CLIN CHEM 2007;53:766-72 59 {mL/min/1.73m2} Abnormal >60 [facility] Work Phone: Sedimentation Rate, Erythroc yteon 11-09-2019 ESR (Bld) [Velocity] 91 mm/h above high threshold 0 - 30 [facility] Work Phone: Cardiacon 09-06-2019 Natriuretic peptide B (Bld) [Mass/Vol] 167 pg/mL above high threshold 0 - 99 [facility] Work Phone: Comment on above: . <100 pg/mL - Heart failure [id number] pg/mL - Intermediate probability of acute heart. [...] (Bld) [Volume fraction] 40.1 % See Below [facility] Work Phone: Comment on above: Reference Range: 36. 0 - 46.0 Hemoglobin (Bld) [Mass/Vol] 13.0 g/dL See Below [facility] Work Phone: Comment on above: Reference Range: 12. 0 - 16.0 MCV (RBC) [Entitic vol] 104 fL above high threshold 80 - 100 [facility] Work Phone: Platelets (Bld) [#/Vol] 225 {x10E9/L} 150 - 450 [facility] Work Phone: RBC (Bld) [#/Vol] 3.86 {x10E12/L} below low threshold See Below [facility] Work Phone: Comment on above: Reference Range: 4.0 0 - 5.20 WBC (Bld) [#/Vol] 6.4 {x10E9/L} 4.4 - 11.3 [facility] Work Phone: WBC (Bld) [#/Vol] 0.0 {/100_WBC} 0.0-0.0 [facility] Work Phone: Metabolic Panelon 09-06-2019 Anion gap [Moles/Vol] 22 mmol/L above high threshold 10 - 20 [facility] Work Phone: Calcium [Mass/Vol] 10.4 mg/dL 8.6 - 10.6 [facility] Work Phone: Chloride [Moles/Vol] 101 mmol/L 98 - 107 [facility] Work Phone: CO2 [Moles/Vol] 20 mmol/L below low threshold 21 - 32 [facility] Work Phone: Creatinine [Mass/Vol] 1.19 mg/dL above high threshold See Below [facility] Work Phone: Comment on above: Reference Range: 0.5 0 - 1.05 Glucose [Mass/Vol] 87 mg/dL 74 - 99 [facility] Work Phone: Potassium [Moles/Vol] 5.7 mmol/L above high threshold 3.5 - 5.3 [facility] Work Phone: Comment on above: MILD HEMOLYSIS DETEC MAURA. The result may be falsely elevated due tohemolysis or other interferents. Clinical correlation is recommended.Repeat testing may be considered. Sodium [Moles/Vol] 137 mmol/L 136 - 145 [facility] Work Phone: Urea nitrogen [Mass/Vol] 23 mg/dL 6 - 23 [facility] Work Phone: Otheron 09-06-2019 Erythrocyte distribution width (RBC) [Ratio] 13.6 % See Below [facility] Work Phone: Comment on above: Reference Range: 11. 5 - 14.5 MCHC (RBC) [Mass/Vol] 32.4 g/dL See Below [facility] Work Phone: Comment on above: Reference Range: 32. 0 - 36.0 43 {mL/min/1.73m2} Abnormal >60 [facility] Work Phone: 52 {mL/min/1.73m2} Abnormal >60 [facility] Work Phone: Comment on above: CALCULATIONS OF ALVARO MATED GFR ARE PERFORMED USING THE MDRD STUDY EQUATION FOR THE IDMS-TRACEABLE CREATININE METHODS. CLIN CHEM 2007;53:766-72 Thyroidon 09-06-2019 TSH Qn 2.22 {mIU/L} See Below [facility] Work Phone: Comment on above: Reference Range: 0.4 4 - 3.98 TSH testing is performed using different testing methodology at [facility] than at other [facility]. Direct result comparisons should only be made within the same method. Complete Blood Count + Diffe hilariotialon 12-16-2018 Basophils (Bld) [#/Vol] 0.06 {x10E9/L} See Below [facility] Work Phone: Comment on above: Reference Range: 0.0 0 - 0.10 Basophils/100 WBC (Bld) 0.8 % 0.0 - 2.0 [facility] Work Phone: Eosinophils (Bld) [#/Vol] 0.09 {x10E9/L} See Below [facility] Work Phone: Comment on above: Reference Range: 0.0 0 - 0.40 Eosinophils/100 WBC (Bld) 1.2 % 0.0 - 6.0 [facility] Work Phone: Erythrocyte distribution width (RBC) [Ratio] 13.1 % See Below [facility] Work Phone: Comment on above: Reference Range: 11. 5 - 14.5 Hematocrit (Bld) [Volume fraction] 35.7 % below low threshold See Below [facility] Work Phone: Comment on above: Reference Range: 36. 0 - 46.0 Hemoglobin (Bld) [Mass/Vol] 11.0 g/dL below low threshold See Below [facility] Work Phone: Comment on above: Reference Range: 12. 0 - 16.0 Lymphocytes (Bld) [#/Vol] 3.17 {x10E9/L} above high threshold See Below [facility] Work Phone: Comment on above: Reference Range: 0.8 0 - 3.00 Lymphocytes/100 WBC (Bld) 40.6 % See Below [facility] Work Phone: Comment on above: Reference Range: 13. 0 - 44.0 MCHC (RBC) [Mass/Vol] 30.8 g/dL below low threshold See Below [facility] Work Phone: Comment on above: Reference Range: 32. 0 - 36.0 MCV (RBC) [Entitic vol] 109 fL above high threshold 80 - 100 [facility] Work Phone: Monocytes (Bld) [#/Vol] 0.34 {x10E9/L} See Below [facility] Work Phone: Comment on above: Reference Range: 0.0 5 - 0.80 Monocytes/100 WBC (Bld) 4.4 % 2.0 - 10.0 [facility] Work Phone: Neutrophils (Bld) [#/Vol] 4.08 {x10E9/L} See Below [facility] Work Phone: Comment on above: Reference Range: 1.6 0 - 5.50 Neutrophils/100 WBC (Bld) 52.1 % See Below [facility] Work Phone: Comment on above: Reference Range: 40. 0 - 80.0 Platelets (Bld) [#/Vol] 362 {x10E9/L} 150 - 450 [facility] Work Phone: RBC (Bld) [#/Vol] 3.27 {x10E12/L} below low threshold See Below [facility] Work Phone: Comment on above: Reference Range: 4.0 0 - 5.20 WBC (Bld) [#/Vol] 0.0 {/100_WBC} 0.0-0.0 [facility] Work Phone: WBC (Bld) [#/Vol] 7.8 {x10E9/L} 4.4 - 11.3 [facility] Work Phone: Complete Blood Count + Differential 0.9 % 0.0 - 0.9 [facility] Work Phone: Comment on above: Percent differential counts (%) should be interpreted in the context of the absolute cell counts (cells/L). Complete Blood Count + Diffe rentialon 12-09-2018 Basophils (Bld) [#/Vol] 0.04 {x10E9/L} See Below [facility] Work Phone: Comment on above: Reference Range: 0.0 0 - 0.10 Basophils/100 WBC (Bld) 0.5 % 0.0 - 2.0 [facility] Work Phone: Eosinophils (Bld) [#/Vol] 0.20 {x10E9/L} See Below [facility] Work Phone: Comment on above: Reference Range: 0.0 0 - 0.40 Eosinophils/100 WBC (Bld) 2.4 % 0.0 - 6.0 [facility] Work Phone: Erythrocyte distribution width (RBC) [Ratio] 13.3 % See Below [facility] Work Phone: Comment on above: Reference Range: 11. 5 - 14.5 Hematocrit (Bld) [Volume fraction] 32.1 % below low threshold See Below [facility] Work Phone: Comment on above: Reference Range: 36. 0 - 46.0 Hemoglobin (Bld) [Mass/Vol] 10.0 g/dL below low threshold See Below [facility] Work Phone: Comment on above: Reference Range: 12. 0 - 16.0 Lymphocytes (Bld) [#/Vol] 2.28 {x10E9/L} See Below [facility] Work Phone: Comment on above: Reference Range: 0.8 0 - 3.00 Lymphocytes/100 WBC (Bld) 26.8 % See Below [facility] Work Phone: Comment on above: Reference Range: 13. 0 - 44.0 MCHC (RBC) [Mass/Vol] 31.2 g/dL below low threshold See Below [facility] Work Phone: Comment on above: Reference Range: 32. 0 - 36.0 MCV (RBC) [Entitic vol] 107 fL above high threshold 80 - 100 [facility] Work Phone: Monocytes (Bld) [#/Vol] 0.63 {x10E9/L} See Below [facility] Work Phone: Comment on above: Reference Range: 0.0 5 - 0.80 Monocytes/100 WBC (Bld) 7.4 % 2.0 - 10.0 [facility] Work Phone: Neutrophils (Bld) [#/Vol] 5.30 {x10E9/L} See Below [facility] Work Phone: Comment on above: Reference Range: 1.6 0 - 5.50 Neutrophils/100 WBC (Bld) 62.3 % See Below [facility] Work Phone: Comment on above: Reference Range: 40. 0 - 80.0 Platelets (Bld) [#/Vol] 298 {x10E9/L} 150 - 450 [facility] Work Phone: RBC (Bld) [#/Vol] 2.99 {x10E12/L} below low threshold See Below [facility] Work Phone: Comment on above: Reference Range: 4.0 0 - 5.20 WBC (Bld) [#/Vol] 0.0 {/100_WBC} 0.0-0.0 [facility] Work Phone: WBC (Bld) [#/Vol] 8.5 {x10E9/L} 4.4 - 11.3 [facility] Work Phone: Complete Blood Count + Differential 0.6 % 0.0 - 0.9 [facility] Work Phone: Comment on above: Percent differential counts (%) should be interpreted in the context of the absolute cell counts (cells/L). Folate, Serumon 12-09-2018 Folate [Mass/Vol] ng/mL >5.0 [facility] Work Phone: Comment on above: Patients receiving m ore than 5 mg/day of biotin may have interference in test results. A sample should be taken no sooner than eight hours after previous dose. Contact the testing laboratory for additional information. Metabolic Panelon 12-09-2018 Anion gap [Moles/Vol] 14 mmol/L 10 - 20 [facility] Work Phone: Calcium [Mass/Vol] 10.0 mg/dL 8.6 - 10.6 [facility] Work Phone: Chloride [Moles/Vol] 102 mmol/L 98 - 107 [facility] Work Phone: CO2 [Moles/Vol] 23 mmol/L 21 - 32 [facility] Work Phone: Creatinine [Mass/Vol] 2.05 mg/dL above high threshold See Below [facility] Work Phone: Comment on above: Reference Range: 0.5 0 - 1.05 Glucose [Mass/Vol] 88 mg/dL 74 - 99 [facility] Work Phone: Potassium [Moles/Vol] 5.0 mmol/L 3.5 - 5.3 [facility] Work Phone: Sodium [Moles/Vol] 134 mmol/L below low threshold 136 - 145 [facility] Work Phone: Urea nitrogen [Mass/Vol] 61 mg/dL above high threshold 6 - 23 [facility] Work Phone: Otheron 12-09-2018 28 {mL/min/1.73m2} Abnormal >60 [facility] Work Phone: Comment on above: CALCULATIONS OF ALVARO MATED GFR ARE PERFORMED USING THE MDRD STUDY EQUATION FOR THE IDMS-TRACEABLE CREATININE METHODS. CLIN CHEM 2007;53:766-72 23 {mL/min/1.73m2} Abnormal >60 [facility] Work Phone: TSH - Thyroid Stimulating Ho Ramon knighton 12-09-2018 TSH Qn 2.35 {mIU/L} See Below [facility] Work Phone: Comment on above: Reference Range: 0.4 4 - 3.98 TSH testing is performed using different testing methodology at [facility] than at other [facility]. Direct result comparisons should only be made within the same method.. Patients receiving more than 5 mg/day of biotin may have interference in test results. A sample should be taken no sooner than eight hours after previous dose. Contact [phone] for additional information. Urinalysison 12-09-2018 Appearance (U) CLEAR CLEAR [facility] Work Phone: Color (U) YELLOW See Below [facility] Work Phone: Comment on above: Reference Range: STR AW,YELLOW Glucose Ql (U) Negative NEGATIVE [facility] Work Phone: Ketones Ql (U) Negative NEGATIVE [facility] Work Phone: Leukocyte esterase Test strip Ql (U) SMALL (1+) Abnormal NEGATIVE [facility] Work Phone: pH (U) 5.0 [pH] 5.0 - 8.0 [facility] Work Phone: Protein (U) [Mass/Vol] Negative NEGATIVE [facility] Work Phone: RBC (U) [#/Vol] Negative NEGATIVE [facility] Work Phone: Specific gravity (U) [Rel density] 1.012 See Below [facility] Work Phone: Comment on above: Reference Range: 1.0 05 - 1.035 Urinalysis Negative NEGATIVE [facility] Work Phone: Urinalysis <2.0 0.0 - 1.9 [facility] Work Phone: Urinalysis, Microscopicon RBC (Bld) [#/Vol] <1 0-5 [facility] Work Phone: Urinalysis, Microscopic 6 {/HPF} Abnormal 0-5 [facility] Work Phone: Urinalysis, Microscopic 1 {/HPF} [facility] Work Phone: Urinalysis, Microscopic 2+ [facility] Work Phone: Vitamin B12, Serumon 12-09- 019 Cobalamin (Vitamin B12) [Mass/Vol] 709 pg/mL 211 - 911 [facility] Work Phone: Hematologyon 11-30-2018 Hematocrit (Bld) [Volume fraction] 34.2 % below low threshold See Below [facility] Work Phone: Comment on above: Reference Range: 36. 0 - 46.0 Hemoglobin (Bld) [Mass/Vol] 10.6 g/dL below low threshold See Below [facility] Work Phone: Comment on above: Reference Range: 12. 0 - 16.0 MCV (RBC) [Entitic vol] 107 fL above high threshold 80 - 100 [facility] Work Phone: Platelets (Bld) [#/Vol] 348 {x10E9/L} 150 - 450 [facility] Work Phone: RBC (Bld) [#/Vol] 3.19 {x10E12/L} below low threshold See Below [facility] Work Phone: Comment on above: Reference Range: 4.0 0 - 5.20 WBC (Bld) [#/Vol] 9.7 {x10E9/L} 4.4 - 11.3 [facility] Work Phone: WBC (Bld) [#/Vol] 0.0 {/100_WBC} 0.0-0.0 [facility] Work Phone: Metabolic Panelon 11-30-2018 ALP [Catalytic activity/Vol] 61 U/L 33 - 136 [facility] Work Phone: Anion gap [Moles/Vol] 15 mmol/L 10 - 20 [facility] Work Phone: Bilirubin [Mass/Vol] 0.4 mg/dL 0.0 - 1.2 [facility] Work Phone: Calcium [Mass/Vol] 10.5 mg/dL 8.6 - 10.6 [facility] Work Phone: Chloride [Moles/Vol] 105 mmol/L 98 - 107 [facility] Work Phone: CO2 [Moles/Vol] 25 mmol/L 21 - 32 [facility] Work Phone: Creatinine [Mass/Vol] 1.65 mg/dL above high threshold See Below [facility] Work Phone: Comment on above: Reference Range: 0.5 0 - 1.05 Glucose [Mass/Vol] 82 mg/dL 74 - 99 [facility] Work Phone: Potassium [Moles/Vol] 4.3 mmol/L 3.5 - 5.3 [facility] Work Phone: Protein [Mass/Vol] 7.0 g/dL 6.4 - 8.2 [facility] Work Phone: Sodium [Moles/Vol] 141 mmol/L 136 - 145 [facility] Work Phone: Urea nitrogen [Mass/Vol] 43 mg/dL above high threshold 6 - 23 [facility] Work Phone: Otheron 11-30-2018 Albumin BCP dye [Mass/Vol] 3.6 g/dL 3.4 - 5.0 [facility] Work Phone: ALT With P-5'-P [Catalytic activity/Vol] 10 U/L 7 - 45 [facility] Work Phone: Comment on above: Patients treated wit h Sulfasalazine may generate falsely decreased results for ALT. AST With P-5'-P [Catalytic activity/Vol] 14 U/L 9 - 39 [facility] Work Phone: Erythrocyte distribution width (RBC) [Ratio] 13.6 % See Below [facility] Work Phone: Comment on above: Reference Range: 11. 5 - 14.5 MCHC (RBC) [Mass/Vol] 31.0 g/dL below low threshold See Below [facility] Work Phone: Comment on above: Reference Range: 32. 0 - 36.0 36 {mL/min/1.73m2} Abnormal >60 [facility] Work Phone: Comment on above: CALCULATIONS OF ALVARO MATED GFR ARE PERFORMED USING THE MDRD STUDY EQUATION FOR THE IDMS-TRACEABLE CREATININE METHODS. CLIN CHEM 2007;53:766-72 30 {mL/min/1.73m2} Abnormal >60 [facility] Work Phone: Hematologyon 05-26-2018 Hematocrit (Bld) [Volume fraction] 38.6 % See Below [facility] Work Phone: Comment on above: Reference Range: 36. 0 - 46.0 Hemoglobin (Bld) [Mass/Vol] 12.0 g/dL See Below [facility] Work Phone: Comment on above: Reference Range: 12. 0 - 16.0 MCV (RBC) [Entitic vol] 108 fL above high threshold 80 - 100 [facility] Work Phone: Platelets (Bld) [#/Vol] 245 {x10E9/L} 150 - 450 [facility] Work Phone: RBC (Bld) [#/Vol] 3.56 {x10E12/L} below low threshold See Below [facility] Work Phone: Comment on above: Reference Range: 4.0 0 - 5.20 WBC (Bld) [#/Vol] 6.9 {x10E9/L} 4.4 - 11.3 [facility] Work Phone: WBC (Bld) [#/Vol] 0.1 {/100_WBC} 0.0-0.0 [facility] Work Phone: Lipid Panelon 05-26-2018 Cholesterol [Mass/Vol] 165 mg/dL 0 - 199 [facility] Work Phone: Comment on above: . [...] dosing. Cholesterol in HDL [Mass/Vol] 44.1 mg/dL [facility] Work Phone: Comment on above: . AGE VERY LOW LOW N ORMAL HIGH 0-19 Y < 35 < 40 40-45 ---- 20- 24 Y ---- < 40 >45 ---- >24 Y ---- < 40 40-60 >60. Cholesterol in LDL [Mass/Vol] 82 mg/dL 0 - 99 [facility] Work Phone: Comment on above: . NEAR BORD AGE TORI RABLE OPTIMAL HIGH HIGH VERY HIGH 0-19 Y 0 - 109 --- 110-129 >/= 130 ---- 20-24 Y 0 - 119 --- 120-159 >/= 160 ---- >24 Y 0 - 99 100-129 130-159 160-189 >/=190. Cholesterol.total/Cho lesterol in HDL [Mass ratio] 3.7 {ratio} [facility] Work Phone: Comment on above: REF VALUESDESIRABLE < 3.4HIGH RISK > 5.0 Triglyceride [Mass/Vol] 194 mg/dL above high threshold 0 - 149 [facility] Work Phone: Comment on above: . [...] Lipid Panel 39 mg/dL 0 - 40 [facility] Work Phone: Metabolic Panelon 05-26-2018 Anion gap [Moles/Vol] 15 mmol/L 10 - 20 [facility] Work Phone: Calcium [Mass/Vol] 10.0 mg/dL 8.6 - 10.6 [facility] Work Phone: Chloride [Moles/Vol] 105 mmol/L 98 - 107 [facility] Work Phone: CO2 [Moles/Vol] 26 mmol/L 21 - 32 [facility] Work Phone: Creatinine [Mass/Vol] 1.15 mg/dL above high threshold See Below [facility] Work Phone: Comment on above: Reference Range: 0.5 0 - 1.05 Glucose [Mass/Vol] 72 mg/dL below low threshold 74 - 99 [facility] Work Phone: Potassium [Moles/Vol] 4.8 mmol/L 3.5 - 5.3 [facility] Work Phone: Sodium [Moles/Vol] 141 mmol/L 136 - 145 [facility] Work Phone: Urea nitrogen [Mass/Vol] 29 mg/dL above high threshold 6 - 23 [facility] Work Phone: Otheron 05-26-2018 Erythrocyte distribution width (RBC) [Ratio] 13.6 % See Below [facility] Work Phone: Comment on above: Reference Range: 11. 5 - 14.5 MCHC (RBC) [Mass/Vol] 31.1 g/dL below low threshold See Below [facility] Work Phone: Comment on above: Reference Range: 32. 0 - 36.0 54 {mL/min/1.73m2} Abnormal >60 [facility] Work Phone: Comment on above: CALCULATIONS OF ALVARO MATED GFR ARE PERFORMED USING THE MDRD STUDY EQUATION FOR THE IDMS-TRACEABLE CREATININE METHODS. CLIN CHEM 2007;53:766-72 45 {mL/min/1.73m2} Abnormal >60 [facility] Work Phone: Vitamin D 25-Hydroxyon 05-26 Calcidiol [Mass/Vol] 38 ng/mL [facility] Work Phone: Comment on above: .DEFICIENCY: < 20 NG /MLINSUFFICIENCY: 20-29 NG/MLOPTIMUM LEVEL: 30-80 NG/MLPOSSIBLE TOXICITY: > 80 NG/MLTHIS ASSAY ACCURATELY QUANTIFIES THE SUM OFVITAMIN D3, 25-HYDROXY AND VIT D2,25-HYDROXY. LUMBAR COMP W FLEX/EX MIN 6V WSon 12-09-2017 LUMBAR COMP W FLEX/EX MIN 6VWS STUDY:LUMBAR COMP W FLEX/EX MIN 6VWS; 12/09/2017 11:10 amINDICATION:BACK PAIN.COMPARISON:09/24/[address] abdomen and pelvis 07/02/2017. [facility]:Susie Montes De Oca-RocaeloFINDINGS:AP, lateral, and coned-down views of the lumbosacral spine areprovided. Bilateral oblique views are also provided. Flexion andextension lateral views are also provided.Interval redemonstration of multiple compression deformities of thethoracolumbar spine including severe height loss of T8 and I21yeohoiief body and approximately 50% height loss of [...] visualizedabdominal aorta and the iliac arteries. Normal [facility] [place], [place] CBC AND DIFFERENTIALon 11-06 % AUTOMATED IMMATURE GRAN 0.3 % Normal 0.0 - 0.9 [facility] Comment on above: Result Comment: Perc ent differential counts (%) should be interpreted in the context of the absolute cell counts (cells/L). Performed By: #### V TDOH ####[facility] [place] [address] % NEUTROPHIL 64.8 % Normal 40.0 - 80.0 [facility] Comment on above: Performed By: #### V TDOH ####[facility] [place] [address] Basophils/100 WBC Auto (Bld) 0.04 x10E9/L Normal 0.00 - 0.10 [facility] Comment on above: Performed By: #### V TDOH ####[facility] [place] [address] Basophils/100 WBC Auto (Bld) 0.7 % Normal 0.0 - 2.0 [facility] Comment on above: Performed By: #### V TDOH ####[facility] [place] [address] Eosinophils Auto #/vol (Bld) 0.06 10*3/uL Normal 0.00 - 0.40 [facility] Comment on above: Performed By: #### V TDOH ####[id number] [place] [address] Eosinophils/100 WBC Auto (Bld) 1.0 % Normal 0.0 - 6.0 [facility] Comment on above: Performed By: #### V TDOH ####[facility] [place] [address] Erythrocyte distribution width Auto Ratio (RBC) 16.1 % High 11.5 - 14.5 [facility] Comment on above: Performed By: #### V TDOH ####[facility] [place] [address] Hematocrit Auto Volume Fraction (Bld) 39.0 % Normal 36.0 - 46.0 [facility] Comment on above: Performed By: #### V TDOH ####[facility] [place] [address] Hemoglobin mass conc (Bld) 12.0 g/dL Normal 12.0 - 16.0 [facility] Comment on above: Performed By: #### V TDOH ####[facility] [place] [address] Lymphocytes Auto #/vol (Bld) 1.59 10*3/uL Normal 0.80 - 3.00 [facility] Comment on above: Performed By: #### V TDOH ####[facility] [place] [address] Lymphocytes/100 WBC Auto (Bld) 27.1 % Normal 13.0 - 44.0 [facility] Comment on above: Performed By: #### V TDOH ####[facility] [place] [address] MCHC Auto mass conc (RBC) 30.8 g/dL Low 32.0 - 36.0 [facility] Comment on above: Performed By: #### V TDOH ####[facility] [place] [address] MCV Auto Entitic volume (RBC) 101 fL High 80 - 100 [facility] Comment on above: Performed By: #### V TDOH ####[facility] [place] [address] Monocytes Auto #/vol (Bld) 0.36 10*3/uL Normal 0.05 - 0.80 [facility] Comment on above: Performed By: #### V TDOH ####[facility] [place] [address] Monocytes/100 WBC Auto (Bld) 6.1 % Normal 2.0 - 10.0 [facility] Comment on above: Performed By: #### V TDOH ####[facility] [place] [address] Neutrophils Auto #/vol (Bld) 3.79 10*3/uL Normal 1.60 - 5.50 [facility] Comment on above: Performed By: #### V TDOH ####[facility] [place] [address] Platelets Auto #/vol (Bld) 300 10*3/uL Normal 150 - 450 [facility] Comment on above: Performed By: #### V TDOH ####[facility] [place] [address] RBC Auto #/vol (Bld) 3.88 x10E12/L Low 4.00 - 5.20 [facility] Comment on above: Performed By: #### V TDOH ####[facility] [place] [address] WBC Auto #/vol (Bld) 5.9 10*3/uL Normal 4.4 - 11.3 [facility] Comment on above: Performed By: #### V TDOH ####[facility] [place] [address] COMPREHENSIVE PANELon 2017 Albumin mass conc 3.6 g/dL Normal 3.4 - 5.0 [facility] Comment on above: Performed By: #### V TDOH ####[facility] [place] [address] ALP enzyme act/vol 56 U/L Normal 33 - 136 [facility] Comment on above: Performed By: #### V TDOH ####[facility] [place] [address] ALT enzyme act/vol 13 U/L Normal 7 - 45 [facility] Comment on above: Result Comment: Daniel ents treated with Sulfasalazine may generate falsely decreased results for ALT. Performed By: #### V TDOH ####[facility] [place] [address] Anion gap 3 molar conc 15 mmol/L Normal 10 - 20 [facility] Comment on above: Performed By: #### V TDOH ####[facility] [place] [address] AST enzyme act/vol 19 U/L Normal 9 - 39 [facility] Comment on above: Performed By: #### V TDOH ####[facility] [place] [address] Bilirubin mass conc 0.3 mg/dL Normal 0.0 - 1.2 [facility] Comment on above: Performed By: #### V TDOH ####[facility] [place] [address] Calcium mass conc 9.5 mg/dL Normal 8.6 - 10.3 [facility] Comment on above: Performed By: #### V TDOH ####[facility] [place] [address] Chloride molar conc 105 mmol/L Normal 98 - 107 [facility] Comment on above: Performed By: #### V TDOH ####[facility] [place] [address] Creatinine mass conc 1.06 mg/dL High 0.50 - 1.05 [facility] Comment on above: Performed By: #### V TDOH ####[facility] [place] [address] GFR- AM. 61 mL/min/1.73m2 Normal >60 [facility] Comment on above: Result Comment: CALC ULATIONS OF ESTIMATED GFR ARE PERFORMED USING THE MDRD STUDY EQUATION FOR THE IDMS-TRACEABLE CREATININE METHODS. CLIN CHEM 2007;53:766-72 Performed By: #### V TDOH ####[facility] [place] [address] GFR-NON AM. 50 mL/min/1.73m2 Abnormal >60 [facility] Comment on above: Performed By: #### V TDOH ####[facility] [place] [address] Glucose mass conc 109 mg/dL High 74 - 99 [facility] Comment on above: Performed By: #### V TDOH ####[facility] [place] [address] HCO3 molar conc (Bld) 24 mmol/L Normal 21 - 32 [facility] Comment on above: Performed By: #### V TDOH ####[facility] [place] [address] Potassium molar conc 4.5 mmol/L Normal 3.5 - 5.3 [facility] Comment on above: Performed By: #### V TDOH ####[facility] [place] [address] Protein mass conc 7.3 g/dL Normal 6.4 - 8.2 [facility] Comment on above: Performed By: #### V TDOH ####[facility] [place] [address] Sodium molar conc 139 mmol/L Normal 136 - 145 [facility] Comment on above: Performed By: #### V TDOH ####[facility] [place] [address] Urea nitrogen mass conc 19 mg/dL Normal 6 - 23 [facility] Comment on above: Performed By: #### V TDOH ####[facility] [place] [address] BASIC METABOLIC PANELon 09-0 Anion gap 3 molar conc 9 mmol/L Low 10 - 20 [facility] Comment on above: Performed By: #### V TDOH ####[facility] [place] [address] Calcium mass conc 8.4 mg/dL Low 8.6 - 10.3 [facility] Comment on above: Performed By: #### V TDOH ####[facility] [place] [address] Chloride molar conc 110 mmol/L High 98 - 107 [facility] Comment on above: Performed By: #### V TDOH ####[facility] [place] [address] Creatinine mass conc 0.61 mg/dL Normal 0.50 - 1.05 [facility] Comment on above: Performed By: #### V TDOH ####[facility] [place] [address] GFR- AM. >60 Normal >60 [facility] Comment on above: Result Comment: CALC ULATIONS OF ESTIMATED GFR ARE PERFORMED USING THE MDRD STUDY EQUATION FOR THE IDMS-TRACEABLE CREATININE METHODS. CLIN CHEM 2007;53:766-72 Performed By: #### V TDOH ####[facility] [place] [address] GFR-NON AM. >60 Normal >60 [facility] Comment on above: Performed By: #### V TDOH ####[facility] [place] [address] Glucose mass conc 103 mg/dL High 74 - 99 [facility] Comment on above: Performed By: #### V TDOH ####[facility] [place] [address] HCO3 molar conc (Bld) 26 mmol/L Normal 21 - 32 [facility] Comment on above: Performed By: #### V TDOH ####[facility] [place] [address] Potassium molar conc 3.9 mmol/L Normal 3.5 - 5.3 [facility] Comment on above: Performed By: #### V TDOH ####[facility] [place] [address] Sodium molar conc 141 mmol/L Normal 136 - 145 [facility] Comment on above: Performed By: #### V TDOH ####[facility] [place] [address] Urea nitrogen mass conc 10 mg/dL Normal 6 - 23 [facility] Comment on above: Performed By: #### V TDOH ####[facility] [place] [address] CBCon 10-13-2017 Erythrocyte distribution width Auto Ratio (RBC) 16.1 % High 11.5 - 14.5 [facility] Comment on above: Performed By: #### V TDOH ####[facility] [place] [address] Hematocrit Auto Volume Fraction (Bld) 32.7 % Low 36.0 - 46.0 [facility] Comment on above: Performed By: #### V TDOH ####[id number] [place] [address] Hemoglobin mass conc (Bld) 10.3 g/dL Low 12.0 - 16.0 [facility] Comment on above: Performed By: #### V TDOH ####[facility] [place] [address] MCHC Auto mass conc (RBC) 31.5 g/dL Low 32.0 - 36.0 [facility] Comment on above: Performed By: #### V TDOH ####[id number] [place] [address] MCV Auto Entitic volume (RBC) 98 fL Normal 80 - 100 [facility] [facility] Comment on above: Performed By: #### V TDOH ####[facility] [place] [address] Platelets Auto #/vol (Bld) 238 10*3/uL Normal 150 - 450 [facility] Comment on above: Performed By: #### V TDOH ####[facility] [place] [address] RBC Auto #/vol (Bld) 3.33 x10E12/L Low 4.00 - 5.20 [facility] Comment on above: Performed By: #### V TDOH ####[facility] [place] [address] WBC Auto #/vol (Bld) 7.3 10*3/uL Normal 4.4 - 11.3 [facility] Comment on above: Performed By: #### V TDOH ####[facility] [place] [address] Daily Progress Note-Surgery ( Medical Student Note [...] an uneventful night. Objective Data: Objective Information:T [id number]/729 8%Date/Time10/13 6: 6: 6: 6: 6:52Range(36.8C - 37.4C ) (63 - [...] Injectable Flush: 10 mL IntraVenous Flush Every 99Vltit14. Vancomycin Oral Liquid: 250 mg Oral Every 6 Hours PRN Medications ---- 1. Acetaminophen: 650 mg Oral Every 4 Hours2. diphenhydrAMINE 2% Topical: 1 application(s) Topical 4 Times a Day3. Heparin Flush 10 unit/ mL PF Injectable: 5 mL IntraVenous Flush Every 41Wpvii6. Heparin Flush 10 unit/ mL PF Injectable [...] 16.1 H Basic Metabolic Panel Trending View Rnpchr80-Xip-5625 05:30:00 12-Oct-2017 19:27:00Glucose, Yftlk012 H 148 KGK956 141K3.9 4.2NN673 H 112 HBicarbonate, Serum26 22Anion Gap, Serum9 L 50HOS81 65WALJB4.61 0.64GFR-Non >60 >60GFR->60 >60Calcium, Serum8.4 L 8.5 [...] by mouth vanco needed Electronic Signatures:Lula Merrill ([facility]) (Signed 13-Oct-2017 10:19)Authored: Service, Subjective Data, Objective Data, Assessment and Plan,Signature/Cosignature/A ttestationManny Arana) (Signed 13-Oct-2017 17:09)Authored: Signature/Cosignature/Attest ationCo-Signer: Service, Subjective Data, Objective Data, Assessment and Plan,Signature/Cosignature/A ttestation Last Updated: 13-Oct-2017 17:09 by Manny Arana) Normal [facility] Discharge Planning Noteon Discharge Planning Note Discharge Needs Assessment:? Discharge Planning Assessment Zrdh92-Ete-3431? Discharge Planning Assessment Completed bySom Chaudhari CC [...] support system/caregiver? [facility] Planning:Discharge Plannin10/13/17 0845 Lace score 15. This SW rec'd phone call from sonDaya Schuler: he isdriving from [place] to check on his parents. He states that his parents arehaving a difficult time at home by themselves due to worsening confusion inboth of them. He states his mother has been the brake repair supervisor of his father whohas had CVA's [...] summer, she still has 33 days available. Trunglans on talking to his parents about moving into a facility near him in [facility] that he can visit them [...] dementias progress. Above was relayed to Som Jones.RN/Corporate Treasury Analyst who is working with this pt today. BRANDON Bonner 10/13/17 0900 Met with Brayan at bedside and Brayan chose [facility] for therapy, Referral sent and patient will be discharged to [facility] today, Discharge orders sent via Allvtripts. Som Chaudhari [facility] Electronic Signatures:Som Chaudhari ([facility]) (Signed 13-Oct-2017 16:32)Authored: Discharge Planning Elaina Dacosta ([facility]) (Signed 13-Oct-2017 12:46)Authored: Discharge Planning Note Last Updated: 13-Oct-2017 16:32 by Som Chaudhari ([facility]) References:1. Data Referenced From "5. Education" 10/09/2017 09:02 PM2. Data Referenced From Admission Risk Screen - Adult" 10/09/2017 09:02 PM Normal [facility] Discharge Mkxrubi6gs 018 Protein mass conc Discharge Orders:Ant icipated Discharge Date:? Anticipated Discharge Gakb69-Ruo-1701 Problem List: Admitting Dx:? Clostridium difficile colitis: Catalog Name: Enterocolitis due toClostridium difficile, not specified as recurrent Additional Dx:? 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 Hypokalemia: Catalog Name: Hypokalemia Significant Events:CABG (2 vessel): Past Surgical History, 54-Orj-2509Ewmgxdv Catheterization: Past Surgical Historycataract: Past Surgical History, bilateral with lens implantappendectomy: Past Surgical History, 26 years agocomplete hysterectomy: Past Surgical History, 27 years agobilat knee replacement: Past Surgical HistoryDNRCCA 10/09/2017: Past Medical HistoryCongestive Heart Failure (CHF): Past Medical HistoryChronic anemia: Past Medical HistoryVenous thromboembolism: Past Medical HistorySepsis: Past Medical HistoryCoronary atherosclerosis: Past Medical HistoryNon ST elevation [place]: Past Medical History, 42-Amq-4633KME: Past Medical HistoryGERD: Past Medical HistoryUTI: Past Medical Historyumbilical hernia: Past Medical Historydiverticulitis: Past Medical Historyosteoporosis: Past Medical Historyanxiety: Past Medical Historydepression: Past Medical Historypost shingles neuropathy: Past Medical Historyhypercholesterolemia: Past Medical Historyherniated disc lumbar area: Past Medical Historyarthritis: Past Medical HistoryHypertension (HTN): Past Medical Historygi bleed: Past Medical Historymitral valve regurgitation: Past Medical Historycolitis: Past Medical HistoryFamily spokesperson: Other, CARLOS [phone] BROTHERPAUL VELOZ [phone] Use: OtherClostridium difficile toxin (C-Diff): Infection Control, 81-Zpl-9660Fswedptoyqd difficile toxin (C-Diff): Infection Control, 84-Yuj-5580Iwksmotuste difficile toxin (C-Diff): Infection Control, 27-Aug-2012, ivory ( [facility])Methicillin-Resistant Staph Aureus (MRSA): Infection Control, Mar 2012, sputum.Influenza- Influenza Virus: Immunizations, 45-Jku-0253JRI- Pneumococcal conjugate vaccine: Immunizations, 12-Oct-2017.Pneumonia- Pneumococcal polysaccharide vaccine-adult: Immunizations.Influenza- Influenza Virus: Immunizations, 76-Gke-0143Aaaydmq Information: Contacts, dontae Schuler [phone] Hospital Providers:Provider RoleProvider Name? Clif Morataya? Manny Mcbride? Benjy Pruitt? Aria Schmitt DNAR:? DNAR StatusDNAR Activity:activity as tolerated. Diet:? Dietlow fiber? Diet Consistency/Texturesoft Additive/Supplement 1:Supplement. Boost Plus 1 by mouth 2 times a day. Hospital Course (Home Care/Gold Form):Hospital Course:? Hospital Course: include significant abnormal lab isxpps84 year old female from home with who stated that she has had abdominalpain, diarrhea, not eating, generalized weakness for the past one week or sobut worse since Thursday. Denied f/c. Has some urinary discomfort. PMHxsignificant for failure to thrive, gastrocutaneous fistula, constipation,ileus, small bowel obstruction, transient ischemic colitis, anemia, proteincalorie malnutrition, hypokalemia, hypomagnesemia and [facility]. Patient has had multiple abdominalsurgeries in the past. She was recently discharged from the hospital on09/01/17 and then a week later for management of small bowel obstruction andAMS. Treatment course in the ED included starting IV fluids, Cipro, Flagyl and oralVanco.stool for c diff +.Sodium 135, K 4.1, Bun/Creat 27/1.73Access started by PICC CEMENT RUBBER in ED Hospital course: Patient was admitted to [facility] Med/Surg for Acute colitis with C. Diff,hypokalemia, [...] ProviderAria Gandhi MD at 13-Oct-2017 14:43:[address] [facility] - Nursing Summary:Special Treatments/Procedures (in past 14 days):? Chemotherapyno? Dialysisno? IV Medicationyes? Last Date Jnibbcua08-Bjd-9534? Oxygen Therapyno? Transfusionsno? Feverno? Radiationno? Ventilatorno? Tracheostomyno? Suctioningno Nutrition:? Nutritional Statusfeeds self Sensory/Comfort:? Visionadequate? Hearingadequate? Speechaphasia? Painyes? Pain Typechronic arthritic? Pain Locationknees, back? Whenvaries? Pain Relieved Byacetaminophen Elimination:? Bladdercontinent? Bowelcontinent? Last Bowel Rrgumalt25-Xhn-9117? Toiletingtoilet Safety:? Siderailsyes? Siderails Number/Reason2 for saftey? Restraintsno? Sitterno? Fall Riskprevious falls, weakness Medication/Hygiene/Mobility: ? Medication Administrationtotal dependent? Bathingassist? Dressingassist? Bed Mobilityassist? Wheelchairassist? Transfersassist? Ambulationassist Gold [facility] - Sheet Combining Operator Summary:Referral Information:? Referral [facility]? Referring Facility [facility]? Contact Arianagrupo Fara [facility]? Contact Phone [phone] Mental & Functional Status:? Capacity For Independent Living/Group Supervisor Yard Planreturn home? Mental/Functional Commentalert and oriented Electronic Signatures:Aria Gandhi) (Signed 13-Oct-2017 14:43)Authored: Provider FINAL REVIEW of OrdersSom Chaudhari ([facility]) (Signed 13-Oct-2017 10:27)Authored: Gold [facility] - Sheet Combining Operator SummaryVanessa Cortes (RN PRN) (Signed 13-Oct-2017 16:25)Authored: [facility] - Nursing SummaryAlex Tillman (PROGRAM SUPERVISOR-GRINDER SET UP OPERATOR THREAD TOOL) (Signed 13-Oct-2017 14:39)Authored: Discharge Orders, Hospital Course (Home Care/Gold Form), ProviderFINAL REVIEW of Orders Last Updated: 13-Oct-2017 16:25 by Vanessa Cortes (RN PRN) Normal [facility] MAGNESIUMon 10-13-2017 Magnesium mass conc 1.87 mg/dL Normal 1.60 - 2.40 [facility] Comment on above: Performed By: #### V TDOH ####[facility] [place] [address] BASIC METABOLIC PANELon Anion gap 3 molar conc 11 mmol/L Normal 10 - 20 [facility] Comment on above: Performed By: #### V TDOH ####[facility] [place] [address] Calcium mass conc 8.5 mg/dL Low 8.6 - 10.3 [facility] Comment on above: Performed By: #### V TDOH ####[facility] [place] [address] Chloride molar conc 112 mmol/L High 98 - 107 [facility] Comment on above: Performed By: #### V TDOH ####[facility] [place] [address] Creatinine mass conc 0.64 mg/dL Normal 0.50 - 1.05 [facility] Comment on above: Performed By: #### V TDOH ####[facility] [place] [address] GFR- AM. >60 Normal >60 [facility] Comment on above: Result Comment: CALC ULATIONS OF ESTIMATED GFR ARE PERFORMED USING THE MDRD STUDY EQUATION FOR THE IDMS-TRACEABLE CREATININE METHODS. CLIN CHEM 2007;53:766-72 Performed By: #### V TDOH ####[facility] [place] [address] GFR-NON AM. >60 Normal >60 [facility] Comment on above: Performed By: #### V TDOH ####[facility] [place] [address] Glucose mass conc 148 mg/dL High 74 - 99 [facility] Comment on above: Performed By: #### V TDOH ####[facility] [place] [address] HCO3 molar conc (Bld) 22 mmol/L Normal 21 - 32 [facility] Comment on above: Performed By: #### V TDOH ####[facility] [place] [address] Potassium molar conc 4.4 mmol/L Normal 3.5 - 5.3 [facility] Comment on above: Performed By: #### V TDOH ####[facility] [place] [address] Sodium molar conc 141 mmol/L Normal 136 - 145 [facility] Comment on above: Performed By: #### V TDOH ####[facility] [place] [address] Urea nitrogen mass conc 11 mg/dL Normal 6 - 23 [facility] Comment on above: Performed By: #### V TDOH ####[facility] [place] [address] Daily Progress Note-Medicine on 10-12-2017 Protein mass [...] problems with insomnia Objective Data: Objective Information:T [id number]/719 5%Date/Time10/12 14: 14: 14: 14: 14:20Range(36.9C - [...] Injectable Flush: 10 mL IntraVenous Flush Every 49Vtylm29. Vancomycin Oral Liquid: 250 mg Oral Every 6 Hours PRN Medications ---- 1. Acetaminophen: 650 mg Oral Every 4 Hours2. diphenhydrAMINE 2% Topical: 1 application(s) Topical 4 Times a Day3. Heparin Flush 10 unit/ mL PF Injectable: 5 mL IntraVenous Flush Every 84Kdpzx1. Heparin Flush 10 unit/ mL PF Injectable [...] Cell Count 5.5Red Blood Cell Count 3.23 GB 9.9 LHCT 31.4 LMCV 97[facility] 31.5 LPLT 253RDW-CV 16.0 H Basic [...] Flonase Other: continue vit D, calcium Anemia /2 iron deficiency- continue daily iron, colacePoor IV access- likely due to dehydration, PICC line inserted in ED by PICC GRINDER SET UP OPERATOR THREAD TOOL Anxiety, depression- continue Wellbutrin- continue Sertraline Insomnia- hold trazadone- held ambien - pt confused overnight GERD- continue pantoprazole Neuropathy pain- hold Tizandine- continue Neurotin for now Urinary frequency- continue oxybutynin Impaired Functional Mobility- PT/OT evaluation, likely snf DVT pps- Ambulation, Lovenox held due to anemia Disposition: [facility] med/surg. Snf soon. Electronic Signatures:Alex Mayer (PROGRAM SUPERVISOR-GRINDER SET UP OPERATOR THREAD TOOL) (Signed 12-Oct-2017 16:31)Authored: Service, Subjective Data, Objective Data, Assessment and Plan,Signature/Cosignature/A ttestation Last Updated: 12-Oct-2017 16:31 by Alex Mayer (PROGRAM SUPERVISOR-GRINDER SET UP OPERATOR THREAD TOOL) Normal [facility] HIP, UNILATERAL W/PELVIS WHE N PERFORMED [...] Electronically signed by: HOMER BELLAMY MD Normal [facility] BASIC METABOLIC PANELon 09-0 Anion gap 3 molar conc 8 mmol/L Low 10 - 20 [facility] Comment on above: Performed By: #### L IPID ####[id number] [place] [address] Calcium mass conc 8.1 mg/dL Low 8.6 - 10.3 [facility] Comment on above: Performed By: #### L IPID ####[address] [address] Chloride molar conc 108 mmol/L High 98 - 107 [facility] Comment on above: Performed By: #### L IPID ####[address] [address] Creatinine mass conc 0.71 mg/dL Normal 0.50 - 1.05 [facility] Comment on above: Performed By: #### L IPID ####[address] [address] GFR- AM. >60 Normal >60 [facility] Comment on above: Result Comment: CALC ULATIONS OF ESTIMATED GFR ARE PERFORMED USING THE MDRD STUDY EQUATION FOR THE IDMS-TRACEABLE CREATININE METHODS. CLIN CHEM 2007;53:766-72 Performed By: #### L IPID ####[address] [address] GFR-NON AM. >60 Normal >60 [facility] Comment on above: Performed By: #### L IPID ####[address] [place] [address] Glucose mass conc 106 mg/dL High 74 - 99 [facility] Comment on above: Performed By: #### L IPID ####[address] [address] HCO3 molar conc (Bld) 26 mmol/L Normal 21 - 32 [facility] Comment on above: Performed By: #### L IPID ####[address] [place] [address] Potassium molar conc 3.3 mmol/L Low 3.5 - 5.3 [facility] Comment on above: Performed By: #### L IPID ####[address] [address] Sodium molar conc 139 mmol/L Normal 136 - 145 [facility] Comment on above: Performed By: #### L IPID ####[address] [address] Urea nitrogen mass conc 7 mg/dL Normal 6 - 23 [facility] Comment on above: Performed By: #### L IPID ####[address] [address] CBCon 10-11-2017 Erythrocyte distribution width Auto Ratio (RBC) 16.0 % High 11.5 - 14.5 [facility] Comment on above: Performed By: #### L IPID ####[address] [address] Hematocrit Auto Volume Fraction (Bld) 31.4 % Low 36.0 - 46.0 [facility] Comment on above: Performed By: #### L IPID ####[address] [address] Hemoglobin mass conc (Bld) 9.9 g/dL Low 12.0 - 16.0 [facility] Comment on above: Performed By: #### L IPID ####[address] [address] MCHC Auto mass conc (RBC) 31.5 g/dL Low 32.0 - 36.0 [facility] Comment on above: Performed By: #### L IPID ####[address] [address] MCV Auto Entitic volume (RBC) 97 fL Normal 80 - 100 [facility] Comment on above: Performed By: #### L IPID ####[address] [address] Platelets Auto #/vol (Bld) 253 10*3/uL Normal 150 - 450 [facility] Comment on above: Performed By: #### L IPID ####[facility] [place] [address] RBC Auto #/vol (Bld) 3.23 x10E12/L Low 4.00 - 5.20 [facility] Comment on above: Performed By: #### L IPID ####[facility] [place] [address] WBC Auto #/vol (Bld) 5.5 10*3/uL Normal 4.4 - 11.3 [facility] Comment on above: Performed By: #### L IPID ####[facility] [place] [address] Daily Progress Note-Medicine on 10-11-2017 Protein mass conc Service: Medicine Rick bjective Data:KATHERINE JUDGE is a 82 year old Female who is Hospital Day # 3. Patientassessed at bedside; sitting up in a chair. slightly confused today; complainedof not sleeping. She is aware she is seeing things that are not there. Objective Data: Objective Information:T [id number]/949 9%Date/Time10/11 6:289/2 6:2892 6:289/2 6:289/2 6:28Range(36.4C - [...] Injectable Flush: 10 mL IntraVenous Flush Every 67Lpcqs84. Vancomycin Oral Liquid: 250 mg Oral Every 6 Hours PRN Medications ---- 1. Acetaminophen: 650 mg Oral Every 4 Hours2. diphenhydrAMINE 2% Topical: 1 application(s) Topical 4 Times a Day3. Heparin Flush 10 unit/ mL PF Injectable: 5 mL IntraVenous Flush Every 66Dchyx8. Heparin Flush 10 unit/ mL PF Injectable [...] PICC line inserted in ED by PICC GILBERT Anxiety, depression- continue Wellbutrin- continue Sertraline Insomnia- hold trazadone- started ambien GERD- continue pantoprazole Neuropathy pain- hold Tizandine- continue Neurotin for now Urinary frequency- continue oxybutynin Impaired Funcitonal Mobility- PT/OT evaluation pending DVT pps- Ambulation, Lovenox held due to anemia Disposition: [facility] med/surg. Home soon. Electronic Signatures:Alex Tillman (PROGRAM SUPERVISOR-GRINDER SET UP OPERATOR THREAD TOOL) (Signed 11-Oct-2017 18:54)Authored: Service, Subjective Data, Objective Data, Assessment and Plan,Signature/Cosignature/A ttestation Last Updated: 11-Oct-2017 18:54 by Alex Tillman (PROGRAM SUPERVISOR-GRINDER SET UP OPERATOR THREAD TOOL) Normal [facility] Daily Progress Note-Surgeryo n 10-11-2017 Protein mass conc Service: Surgery Sub jective Data:KATHERINE JUDGE is a 82 year old Female who is Hospital Day # 3. HALLUCINATING / NO PAIN / LESS DIARRHEA. Objective Data: Objective Information:T [id number]/949 9%Date/Time10/11 6:2892 6:2892 6:2892 6:289/2 6:28Range(36.4C - 36.6C ) (64 - [...] Updated: 11-Oct-2017 08:30 by Manny Arana) Normal [facility] MAGNESIUMon 10-11-2017 Magnesium mass conc 1.54 mg/dL Low 1.60 - 2.40 [facility] Comment on above: Performed By: #### V TDOH ####[facility] [place] [address] BASIC METABOLIC PANELon Anion gap 3 molar conc 10 mmol/L Normal 10 - 20 [facility] Comment on above: Performed By: #### L IPID ####[address] [place] [address] Calcium mass conc 8.2 mg/dL Low 8.6 - 10.3 [facility] Comment on above: Performed By: #### L IPID ####[address] [place] [address] Chloride molar conc 104 mmol/L Normal 98 - 107 [facility] Comment on above: Performed By: #### L IPID ####[address] [place] [address] Creatinine mass conc 1.14 mg/dL High 0.50 - 1.05 [facility] Comment on above: Performed By: #### L IPID ####[address] [place] [address] GFR- AM. 56 mL/min/1.73m2 Abnormal >60 [facility] Comment on above: Result Comment: CALC ULATIONS OF ESTIMATED GFR ARE PERFORMED USING THE MDRD STUDY EQUATION FOR THE IDMS-TRACEABLE CREATININE METHODS. CLIN CHEM 2007;53:766-72 Performed By: #### L IPID ####[address] [place] [address] GFR-NON AM. 46 mL/min/1.73m2 Abnormal >60 [facility] Comment on above: Performed By: #### L IPID ####[address] [place] [address] Glucose mass conc 102 mg/dL High 74 - 99 [facility] Comment on above: Performed By: #### L IPID ####[address] [place] [address] HCO3 molar conc (Bld) 27 mmol/L Normal 21 - 32 [facility] Comment on above: Performed By: #### L IPID ####[address] [address] Potassium molar conc 3.5 mmol/L Normal 3.5 - 5.3 [facility] Comment on above: Performed By: #### L IPID ####[address] [address] Sodium molar conc 137 mmol/L Normal 136 - 145 [facility] Comment on above: Performed By: #### L IPID ####[address] [address] Urea nitrogen mass conc 18 mg/dL Normal 6 - 23 [facility] Comment on above: Performed By: #### L IPID ####[address] [address] CBC AND DIFFERENTIALon 10-10 % AUTOMATED IMMATURE GRAN 0.3 % Normal 0.0 - 0.9 [facility] Comment on above: Result Comment: Perc ent differential counts (%) should be interpreted in the context of the absolute cell counts (cells/L). Performed By: #### L IPID ####[address] [address] % NEUTROPHIL 69.7 % Normal 40.0 - 80.0 [facility] Comment on above: Performed By: #### L IPID ####[address] [address] Basophils/100 WBC Auto (Bld) 0.04 x10E9/L Normal 0.00 - 0.10 [facility] Comment on above: Performed By: #### L IPID ####[address] [address] Basophils/100 WBC Auto (Bld) 0.5 % Normal 0.0 - 2.0 [facility] Comment on above: Performed By: #### L IPID ####[address] [address] Eosinophils Auto #/vol (Bld) 0.15 10*3/uL Normal 0.00 - 0.40 [facility] Comment on above: Performed By: #### L IPID ####[address] [address] Eosinophils/100 WBC Auto (Bld) 2.0 % Normal 0.0 - 6.0 [facility] Comment on above: Performed By: #### L IPID ####[address] [address] Erythrocyte distribution width Auto Ratio (RBC) 15.9 % High 11.5 - 14.5 [facility] Comment on above: Performed By: #### L IPID ####[address] [address] Hematocrit Auto Volume Fraction (Bld) 29.3 % Low 36.0 - 46.0 [facility] Comment on above: Performed By: #### L IPID ####[address] [address] Hemoglobin mass conc (Bld) 9.4 g/dL Low 12.0 - 16.0 [facility] Comment on above: Performed By: #### L IPID ####[address] [address] Lymphocytes Auto #/vol (Bld) 1.63 10*3/uL Normal 0.80 - 3.00 [facility] Comment on above: Performed By: #### L IPID ####[address] [address] Lymphocytes/100 WBC Auto (Bld) 22.0 % Normal 13.0 - 44.0 [facility] Comment on above: Performed By: #### L IPID ####[address] [address] MCHC Auto mass conc (RBC) 32.1 g/dL Normal 32.0 - 36.0 [facility] Comment on above: Performed By: #### L IPID ####[facility] [place] [address] MCV Auto Entitic volume (RBC) 97 fL Normal 80 - 100 [facility] Comment on above: Performed By: #### L IPID ####[address] [place] [address] Monocytes Auto #/vol (Bld) 0.41 10*3/uL Normal 0.05 - 0.80 [facility] Comment on above: Performed By: #### L IPID ####[address] [address] Monocytes/100 WBC Auto (Bld) 5.5 % Normal 2.0 - 10.0 [facility] Comment on above: Performed By: #### L IPID ####[address] [address] Neutrophils Auto #/vol (Bld) 5.16 10*3/uL Normal 1.60 - 5.50 [facility] Comment on above: Performed By: #### L IPID ####[address] [address] Platelets Auto #/vol (Bld) 246 10*3/uL Normal 150 - 450 [facility] Comment on above: Performed By: #### L IPID ####[address] [address] RBC Auto #/vol (Bld) 3.02 x10E12/L Low 4.00 - 5.20 [facility] Comment on above: Performed By: #### L IPID ####[address] [address] WBC Auto #/vol (Bld) 7.4 10*3/uL Normal 4.4 - 11.3 [facility] Comment on above: Performed By: #### L IPID ####[address] [address] CLOST.DIFF.TOXIN,PCRon 10-10 CLOST.DIFF.TOXIN,PCR DETECTED Abnormal Not Detected [facility] Comment on above: Order Comment: +CDPC [...] 10/10/2017 03:35 Performed By: #### L IPID ####[place] [address] Consult-Infectious Diseaseon 10-10-2017 Consult-Infectious Disease Service:Service: Infectious [...] bowel obstruction (disorder):Acute bowel obstruction: Onset Date: 64-Uvf-7210Ywjvdllwfdn abdominal pain (finding):Acute bowel obstruction:Acute bowel obstruction: [...] Confusion? Restoril: Confusion Objective: Objective Information: T PGLYGmQ6Fiyic84.14520352/749 9%Date/Time10/10 14: 14: 14: 14: 14:25Range(36.4C - [...] Injectable Flush: 10 mL IntraVenous Flush Every 44Qvget8. Sodium Chloride 0.9% Injectable Flush PRN: 10 [...] Complete Blood Count + Differential Trending View Hqctlw84-Gow-6075 03:32:00 09-Oct-2017 15:37:00White Blood Cell Count7.4 7.0Red Blood Cell Count3.02 L 3.22 LHGB9.4 L 10.0 LHCT29.3 L 32.1 LMCV97 956IOBB60.1 31.2 BGBK887 285RDW-CV15.9 H 16.0 HNeutrophil %69.7 69.0Immature Granulocytes %0.3 0.3Lymphocyte %22.0 23.8Monocyte %5.5 6.1Eosinophil %2.0 0.4Basophil %0.5 0.4Neutrophil Count5.16 4.85Lymphocyte Count1.63 1.67Monocyte Count0.41 0.43Eosinophil Count0.15 0.03Basophil Count0.04 0.03 Basic Metabolic Panel Trending View Jajtsj58-Ctk-6980 03:32:00 09-Oct-2017 15:37:00Glucose, Gmznr088 H 71BU225 135 LK3.5 4.4XS592 99Bicarbonate, Serum27 27Anion Gap, Serum10 45FSH49 27 HCREAT1.14 H 1.73 HGFR-Non Jfffzsaz03 A 28 AGFR- Auxfqnon00 A 34 ACalcium, Serum8.2 L 9.5 Lactate, Level Trending View Zeinpc96-Rdt-1219 17:49:00 09-Oct-2017 15:37:00Lactate, Level0.6 2.2 H Urinalysis 09-Oct-2017 17:44:00 ResultValueColor, Urine YELLOW Reference Range: STRAW,YELLOWAppearance, Urine HAZYSpecific Dobbins, Urine 1.009pH, Urine 5.0Protein, Urine NEGATIVEGlucose, Urine [...] Last Updated: 10-Oct-2017 21:36 by Clif Eid) [facility] Consult-Surgeryon 10-10-2017 Consult-Surgery Service:Service: Leonora arianna Consult:Consult requested by (Attending Name): Joy: COLITIS [...] bowel obstruction (disorder):Acute bowel obstruction: Onset Date: 78-Xcv-9684Rbvmj bowel obstruction:Acute bowel obstruction:Generalized abdominal pain (finding): [...] Confusion? Restoril: Confusion Objective: Objective Information: T DGYLJoY3Rzdnp02.47273163/739 5%Date/Time10/10 7: 7: 7: 7: 7:17Range(36.5C - [...] Updated: 11-Oct-2017 08:19 by Manny Arana) Normal [facility] History and Physicalon 10-10 History and [...] hypokalemia,hypomagnesemia and colitis was admitted from the [facility] emergency room due tocolitis. Patient has had multiple abdominal surgeries in the past. She wasrecently discharged from the hospital on 09/01/17 and then a week later formanagement of small bowel obstruction and AMS. Treatment course in the ED included starting IV fluids, Cipro, Flagyl and oralVanco.stool for c diff +.Sodium 135, K 4.1, Bun/Creat 27/1.73Access started by PICC CEMENT RUBBER in ED Past medical history: As stated above. Past surgical history: Multiple abdominal surgeries Social history: Patient never smoked. She is retired. No illicit drug use.She is and has one child. Family history significant for diabetes Admitted to [facility] med/surg with consults to surgery and ID [...] oral tablet: 1 tab(s) orally once a hujB-B-Dq-F-SatiZANidine 2 mg oral tablet: 1 tab(s) orally [...] and are negative Objective: Objective Information: T OXGQUjI2Ulpfh77.90730006/739 5%Date/Time10/10 7: 7: 7: 7: 7:17Range(36.5C - 36.7C ) (63 - 77 ) (16 - 18 ) (69 - 170 )/ (38 - 80 ) (91%- 95% ) Weights8 21:07: Weight in kg (Weight (kg)) 41.68/31 21:07: Weight in lbs ((lbs)) 91.78/31 21:07: [...] Injectable Flush: 10 mL IntraVenous Flush Every 35Eabme80. Vancomycin Oral Liquid: 250 mg Oral Every 6 Hours PRN Medications ---- 1. Acetaminophen: 650 mg Oral Every 4 Hours2. Heparin Flush 10 unit/ mL PF Injectable: 5 mL IntraVenous Flush Every 72Igwvw6. Heparin Flush 10 unit/ mL PF Injectable [...] Complete Blood Count + Differential Trending View Qrqsza40-Qkf-3423 03:32:00 09-Oct-2017 15:37:00 05-Oct-2017 15:23:00White Blood Cell Count7.4 7.0 6.9Red Blood Cell Count3.02 L 3.22 L 3.58 LHGB9.4 L 10.0 L 11.0 LHCT29.3 L 32.1 L 35.7 LMCV97 100 899TDFC30.1 31.2 L 30.8 JMPU354 285 397RDW-CV15.9 H 16.0 H 16.2 HNeutrophil %69.7 69.0 54.6Immature Granulocytes %0.3 0.3 0.3Lymphocyte %22.0 23.8 35.8Monocyte %5.5 6.1 7.0Eosinophil %2.0 0.4 1.3Basophil %0.5 0.4 1.0Neutrophil Count5.16 4.85 3.75Lymphocyte Count1.63 1.67 2.46Monocyte Count0.41 0.43 0.48Eosinophil Count0.15 0.03 0.09Basophil Count0.04 0.03 0.07 Basic Metabolic Panel Trending View Hyoctz81-Kel-8638 03:32:00 09-Oct-2017 15:37:00Glucose, Olfem806 H 69KZ580 135 LK3.5 4.9BD782 99Bicarbonate, Serum27 27Anion Gap, Serum10 25BOX80 27 HCREAT1.14 H 1.73 HGFR-Non Rlgdvavn79 A 28 AGFR- Ifsjqihl26 A 34 ACalcium, Serum8.2 L 9.5 Lactate, Level Trending View Ylqfuy61-Jdj-0171 17:49:00 09-Oct-2017 15:37:00Lactate, Level0.6 2.2 H Urinalysis 09-Oct-2017 17:44:00 ResultValueColor, Urine YELLOW Reference Range: STRAW,YELLOWAppearance, Urine HAZYSpecific Dobbins, Urine 1.009pH, Urine 5.0Protein, Urine NEGATIVEGlucose, Urine [...] PICC line inserted in ED by PICC GRINDER SET UP OPERATOR THREAD TOOL Anxiety, depression- continue Wellbutrin, Sertraline Insomnia- continue to hold Trazadone Gerd- continue PPI Neuropathy pain- hold Tizandine- continue Neurotin for now Urinary frequency, continue home medication DVT Ambulation, Lovenox held due to anemia Disposition: [facility] med/surg. Home soon. Signatures/Attestation/Certi fication:Comments/ Additional FindingsPatient seen personally by me in collaboration with CEMENT RUBBER. Agree with POC asdocumented above. Attending Provider [...] [facility] Electronic Signatures:Aria Gandhi) (Signed 10-Oct-2017 13:46)Authored: Signatures/Attestation/Certi ficationCo-Signer: History of Present Illness, Comorbidities, Allergies, MedicationsPrior to Admission, Review of Systems, Objective, Assessment and Plan,Signatures/Attestation/ CertificationAlex Mayer (PROGRAM SUPERVISOR-GRINDER SET UP OPERATOR THREAD TOOL) (Signed 10-Oct-2017 10:21)Authored: History of Present Illness, Comorbidities, Allergies, MedicationsPrior to Admission, Review of Systems, Objective, Assessment and Plan,Signatures/Attestation/ Certification Last Updated: 10-Oct-2017 13:46 by Aria Gandhi) Normal [facility] ALCOHOLon 10-09-2017 Ethanol mass conc mg/dL Normal [facility] Comment on above: Result Comment: FOR MEDICAL USE ONLY..REF VALUES <10 Performed By: #### L IPID ####[facility] [place] [address] AMYLASEon 10-09-2017 Amylase enzyme act/vol 58 U/L Normal 29 - 103 [facility] Comment on above: Performed By: #### L IPID ####[facility] [place] [address] Admission Risk Screen - Adul ton 10-09-2017 [...] DNR-CC Availabilityplaced in chart? DNR-CC Placed on Degea37-Bqd-0515 Falls Screen:Type of AssessmentadmissionModerate Risk Factorspatient care [...] Learning Preferencesindividual instruction? Cultural Considerationsnone? Developmental Considerationsnone? Christianity Considerationsnone Learning Assessment (Other Learner):? Other learner [...] Spiritual Screen:? Are there any cultural, spiritual, catholic practices/values/needs that areimportant for us to know?no? Do you want a visit/item from Pastoral Care?no? Would you like your Business Operations Analyst/Outreach Nurse notified?no CAGE:Is this an injured [place] a [place] [place] no Vaccinations:Vaccination - Influenza Vaccination Screen:? Is [...] Risk Screens, Vaccinations, Moustapha, Pressure InjuryGladys Jordan (CINTHYA) (Signed 11-Oct-2017 09:08)Authored: Vaccinations Last Updated: 11-Oct-2017 09:08 by Gladys Jordan (CINTHYA) References:1. Data Referenced From "Triage - ED" 10/09/2017 1:22 PM Normal [facility] BASIC METABOLIC PANELon 08-3 Anion gap 3 molar conc 13 mmol/L Normal 10 - 20 [facility] Comment on above: Performed By: #### L IPID ####[facility] [place] [address] Calcium mass conc 9.5 mg/dL Normal 8.6 - 10.3 [facility] Comment on above: Performed By: #### L IPID ####[facility] [place] [address] Chloride molar conc 99 mmol/L Normal 98 - 107 [facility] Comment on above: Performed By: #### L IPID ####[address] [place] [address] Creatinine mass conc 1.73 mg/dL High 0.50 - 1.05 [facility] Comment on above: Performed By: #### L IPID ####[address] [address] GFR- AM. 34 mL/min/1.73m2 Abnormal >60 [facility] Comment on above: Result Comment: CALC ULATIONS OF ESTIMATED GFR ARE PERFORMED USING THE MDRD STUDY EQUATION FOR THE IDMS-TRACEABLE CREATININE METHODS. CLIN CHEM 2007;53:766-72 Performed By: #### L IPID ####[address] [address] GFR-NON AM. 28 mL/min/1.73m2 Abnormal >60 [facility] Comment on above: Performed By: #### L IPID ####[address] [address] Glucose mass conc 85 mg/dL Normal 74 - 99 [facility] Comment on above: Performed By: #### L IPID ####[address] [address] HCO3 molar conc (Bld) 27 mmol/L Normal 21 - 32 [facility] Comment on above: Performed By: #### L IPID ####[address] [address] Potassium molar conc 4.1 mmol/L Normal 3.5 - 5.3 [facility] Comment on above: Performed By: #### L IPID ####[address] [place] [address] Sodium molar conc 135 mmol/L Low 136 - 145 [facility] Comment on above: Performed By: #### L IPID ####[address] [address] Urea nitrogen mass conc 27 mg/dL High 6 - 23 [facility] Comment on above: Performed By: #### L IPID ####[facility] [place] [address] BLOOD CULTURE, BACTERIALon 0 10-09-2017 BLOOD CULTURE, BACTERIAL PATIENT: KATHERINE JUDGE LOCATION: [address]#: [id number] : [birth year] AGE: SEX: F ORDERED BY: LOTUS VANCE: Blood COLLECTED: 10/09/17 15:37ANTIBIOTICS AT ESDRAS.: RECEIVED : 10/09/17 22:30SITE: PERIPHERAL R E S U L T S BLOOD CULTURE, BACTERIAL FINAL 10/14/17 23:42 No Growth at 1 days No Growth at 2 days No Growth at 3 days No Growth at 4 days NO GROWTH - FINAL REPORT Normal [facility] Comment on above: Performed By: #### V TDOH ####[facility] [place] [address] BLOOD CULTURE, BACTERIAL TEST BLOOD CULTURE, BACTERIAL WAS CANCELLED, 10/16/2017 16:10 DUPLICATE ORDER.PATIENT: KATHERINE JUDGE LOCATION: [address]#: [id number] : [birth year] AGE: SEX: F ORDERED BY: LOTUS VANCE: Blood COLLECTED: 10/09/17 15:30ANTIBIOTICS AT ESDRAS.: RECEIVED : SITE: PERIPHERAL R E S U L T S BLOOD CULTURE, BACTERIAL CANCELLED 10/16/17 16:10 Normal [facility] Comment on above: Performed By: #### V TDOH ####[facility] [place] [address] CBC AND DIFFERENTIALon 10-09 % AUTOMATED IMMATURE GRAN 0.3 % Normal 0.0 - 0.9 [facility] Comment on above: Result Comment: Perc ent differential counts (%) should be interpreted in the context of the absolute cell counts (cells/L). Performed By: #### L IPID ####[facility] [place] [address] % NEUTROPHIL 69.0 % Normal 40.0 - 80.0 [facility] Comment on above: Performed By: #### L IPID ####[address] [address] Basophils/100 WBC Auto (Bld) 0.4 % Normal 0.0 - 2.0 [facility] Comment on above: Performed By: #### L IPID ####[address] [address] Basophils/100 WBC Auto (Bld) 0.03 x10E9/L Normal 0.00 - 0.10 [facility] Comment on above: Performed By: #### L IPID ####[address] [address] Eosinophils Auto #/vol (Bld) 0.03 10*3/uL Normal 0.00 - 0.40 [facility] Comment on above: Performed By: #### L IPID ####[address] [address] Eosinophils/100 WBC Auto (Bld) 0.4 % Normal 0.0 - 6.0 [facility] Comment on above: Performed By: #### L IPID ####[address] [address] Erythrocyte distribution width Auto Ratio (RBC) 16.0 % High 11.5 - 14.5 [facility] Comment on above: Performed By: #### L IPID ####[address] [address] Hematocrit Auto Volume Fraction (Bld) 32.1 % Low 36.0 - 46.0 [facility] Comment on above: Performed By: #### L IPID ####[address] [address] Hemoglobin mass conc (Bld) 10.0 g/dL Low 12.0 - 16.0 [facility] Comment on above: Performed By: #### L IPID ####[address] [address] Lymphocytes Auto #/vol (Bld) 1.67 10*3/uL Normal 0.80 - 3.00 [facility] Comment on above: Performed By: #### L IPID ####[address] [address] Lymphocytes/100 WBC Auto (Bld) 23.8 % Normal 13.0 - 44.0 [facility] Comment on above: Performed By: #### L IPID ####[address] [place] [address] MCHC Auto mass conc (RBC) 31.2 g/dL Low 32.0 - 36.0 [facility] Comment on above: Performed By: #### L IPID ####[address] [address] MCV Auto Entitic volume (RBC) 100 fL Normal 80 - 100 [facility] Comment on above: Performed By: #### L IPID ####[address] [address] Monocytes Auto #/vol (Bld) 0.43 10*3/uL Normal 0.05 - 0.80 [facility] Comment on above: Performed By: #### L IPID ####[address] [address] Monocytes/100 WBC Auto (Bld) 6.1 % Normal 2.0 - 10.0 [facility] Comment on above: Performed By: #### L IPID ####[address] [address] Neutrophils Auto #/vol (Bld) 4.85 10*3/uL Normal 1.60 - 5.50 [facility] Comment on above: Performed By: #### L IPID ####[address] [address] Platelets Auto #/vol (Bld) 285 10*3/uL Normal 150 - 450 [facility] Comment on above: Performed By: #### L IPID ####[address] [address] RBC Auto #/vol (Bld) 3.22 x10E12/L Low 4.00 - 5.20 [facility] Comment on above: Performed By: #### L IPID ####[address] [address] WBC Auto #/vol (Bld) 7.0 10*3/uL Normal 4.4 - 11.3 [facility] Comment on above: Performed By: #### L IPID ####[facility] [id number] CHEST 1 VIEWon 10-09-2017 CHEST 1 VIEW [...] fractures.Electronically signed by: THANH COLLADO MD Normal [facility] CT ABDOMEN AND PELVIS WO CON [...] L3 as well as severe compression of E52dzhykbejp bodies noted. Degenerative disc space narrowing of [...] signed by: LEIGH ANN VALLADARES MD Normal [facility] HEPATIC FUNCTION PANELon Albumin mass conc 3.1 g/dL Low 3.4 - 5.0 [facility] Comment on above: Performed By: #### L IPID ####[address] [place] [address] ALP enzyme act/vol 67 U/L Normal 33 - 136 [facility] Comment on above: Performed By: #### L IPID ####[address] [address] ALT enzyme act/vol 9 U/L Normal 7 - 45 [facility] Comment on above: Result Comment: Daniel ents treated with Sulfasalazine may generate falsely decreased results for ALT. Performed By: #### L IPID ####[address] [address] AST enzyme act/vol 19 U/L Normal 9 - 39 [facility] Comment on above: Performed By: #### L IPID ####[address] [address] Bilirubin mass conc 0.4 mg/dL Normal 0.0 - 1.2 [facility] Comment on above: Performed By: #### L IPID ####[address] [address] Bilirubin.direct mass conc 0.1 mg/dL Normal 0.0 - 0.3 [facility] Comment on above: Performed By: #### L IPID ####[address] [place] [address] Protein mass conc 6.4 g/dL Normal 6.4 - 8.2 [facility] Comment on above: Performed By: #### L IPID ####[address] [address] LACTATEon 10-09-2017 Lactate molar conc 0.6 mmol/L Normal 0.4 - 2.0 [facility] Comment on above: Result Comment: Hali puncture immediately after or during the administration of Metamizole may lead to falsely low results. Testing should be performed immediately prior to Metamizole dosing. Performed By: #### L IPID ####[address] [place] [address] Lactate molar conc 2.2 mmol/L High 0.4 - 2.0 [facility] Comment on above: Result Comment: Hali puncture immediately after or during the administration of Metamizole may lead to falsely low results. Testing should be performed immediately prior to Metamizole dosing. Performed By: #### L IPID ####[address] [place] [address] LIPASEon 10-09-2017 Lipase enzyme act/vol 50 U/L Normal 9 - 82 [facility] Comment on above: Result Comment: Hali puncture immediately after or during the administration of Metamizole may lead to falsely low results. Testing should be performed immediately prior to Metamizole dosing. Performed By: #### L IPID ####[address] [place] [address] OCCULT BLOOD TEST,STOOLon OCCULT BLOOD,STOOL Positive Abnormal Negative [facility] Comment on above: Performed By: #### L IPID ####[address] [place] [address] PT/INRon 10-09-2017 INR Coag RelTime (PPP) 1.1 {INR} Normal 0.9 - 1.1 [facility] Comment on above: Performed By: #### L IPID ####[address] [place] [address] Prothrombin time (PT) Coag time (PPP) 11.5 s Normal 9.8 - 12.7 [facility] Comment on above: Performed By: #### L IPID ####[address] [place] [address] Patient Profile - Adult v2on 10-09-2017 Protein mass conc Profile:Initial Info :How to be AddressedAliceSpoken Language PreferredEnglish (1)Source of InformationpatientAre you currently using the Personal Electronic Health Record or MYUHCAREnoAre you interested in learning more about [facility] for the management of yourhealthdeclinedStated Reason for Admissiondizziness weakness low BPPrimary Contact Name and [phone] brother Raul VelozLimitations on Visitors/Phone CallsnoneTemporary Family Living Arrangements (While Hospitalized)none neededArrived Fromemergency departmentWas Admitted To in Past 90 Daysskilled nursing facilityEmployment StatusdisabledCurrent or Previous ServicenonePatient Belongingsremains [...] Active? Restoril: Drug, Confusion, Active Electronic Signatures:Lien Bobo (CINTHYA) (Signed 09-Oct-2017 21:10)Authored: Profile, Additional Information Last Updated: 09-Oct-2017 21:10 by Lien Bobo (CINTHYA) References:1. Data Referenced From Patient Profile - Adult v2 09/05/2017 6:30 AM Normal [facility] Provider Note - ED Care [place] [...] Updated: 09-Oct-2017 19:35 by Spencer Hardy) Normal [facility] Provider Note - ED v2on - Protein mass conc Provider Note - ED v 2:Chart Review:ED NOTESED NOTES: Patient states she was hospitalized due to GI tract required resection of thebowel and subsequently went to longterm for rehabilitation, after dischargefrom the longterm rehabilitation treatment patient was at home was doingfine until yesterday she started feeling dizzy and weak, symptom got worse thismorning to the limited she felt she was or pass out as a result [facility] she was found to be hypertensive brought [...] oral tabletInstructions: 1 tab(s) orally once a rewR-M-Kp-F-Sa Drug Name: tiZANidine 2 mg oral tabletInstructions: [...] difficile toxin (C-Diff) Additional Notes:came with ( [facility]) Status:Active Description:Methicillin-Resi stant Staph Aureus (MRSA) Additional Notes:sputum Status:Active Description:Clostridium difficile toxin (C-Diff) Status:Active Other Description:Narcotic Use Status:Active Description:Family spokesperson Additional Notes: CARLOS [phone] BROTHER RYLAND [phone] Status:Active Past Medical History Description:colitis Status:Active Description:mitral valve regurgitation Status:Active Description:gi bleed Status:Active Description:Hypertension (HTN) Status:Active Description:arthritis Status:Active Description:herniated disc lumbar area Status:Active Description: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 Description:depression Status:Active Description:anxiety Status:Active Description:osteoporosis Status:Active Description:diverticulitis Status:Active Description:umbilical hernia Status:Active Description:UTI Status:Active Description:GERD Status:Active Description:CAD Status:Active Description:Non ST elevation [place] Status:Active Description:Coronary atherosclerosis Status:Active Description:Sepsis Status:Active Description:Venous [...] SIGNS VITAL SIGNS: T PRBP SpO2O2(LPM) %FiO2 Hwmeyu49-Hjl-3952 13:22:00-36.9211885/38 93 room air, no respiratorysupport EKG INTERPRETATION:EKG [...] (Signed 09-Oct-2017 13:56)Authored: Provider Note - ED s9KfnckdrdSpencer Hardy) (Signed 09-Oct-2017 19:42)Authored: Provider Note - ED v2 Last Updated: 09-Oct-2017 19:42 by Spencer Hardy) References:1. Data Referenced From "Triage - ED" 10/09/2017 1:22 PM Normal [facility] TROPONIN Ion 10-09-2017 Troponin I.cardiac mass conc ng/mL Normal 0.00 - 0.03 [facility] Comment on above: Result Comment: LESS THAN 0.04 NG/ML: NEGATIVEREPEAT TESTING IN FOUR TO SIX HOURSIF CLINICALLY INDICATED.0.04 - 0.5 NG/ML: CONSISTENT WITH POSSIBLECARDIAC DAMAGE AND POSSIBLE INCREASEDCLINICAL RISK.SERIAL MEASUREMENTS MAY HELP ASSESS EXTENT OFMYOCARDIAL DAMAGE.>0.5 NG/ML: CONSISTENT WITH CARDIAC DAMAGE,INCREASED CLINICAL RISK AND MYOCARDIALINFARCTION. SERIAL MEASUREMENTS MAY HELPASSESS EXTENT OF MYOCARDIAL DAMAGE..Note: Troponin I testing is performed using differenttesting methodology at [facility] than at [facility]. Direct result comparisons should onlybe made within the same method. Performed By: #### L IPID ####[facility] [place] [address] Triage - EDon 10-09-2017 Triage - ED [...] History:? Past Medical History Reviewedyes Electronic Signatures:Nelia Pierre) (Signed 09-Oct-2017 13:24)Authored: Triage, Past Medical History Last Updated: 09-Oct-2017 13:24 by Nelia Pierre) Normal [facility] URINALYSISon 10-09-2017 APPEARANCE HAZY Normal CLEAR [facility] Comment on above: Performed By: #### L IPID ####[address] [place] [address] BILIRUBIN Negative Normal NEGATIVE [facility] Comment on above: Performed By: #### L IPID ####[address] [place] [address] BLOOD Negative Normal NEGATIVE [facility] Comment on above: Performed By: #### L IPID ####[facility] [place] [address] COLOR YELLOW Normal STRAW,YELL OW [facility] Comment on above: Performed By: #### L IPID ####[address] [place] [address] GLUCOSE Negative Normal NEGATIVE [facility] Comment on above: Performed By: #### L IPID ####[address] [place] [address] KETONES Negative Normal NEGATIVE [facility] Comment on above: Performed By: #### L IPID ####[address] [place] [address] LEUKOCYTE ESTERASE Negative Normal NEGATIVE [facility] Comment on above: Performed By: #### L IPID ####[address] [place] [address] NITRITE Negative Normal NEGATIVE [facility] Comment on above: Performed By: #### L IPID ####[address] [place] [address] pH 5.0 Normal 5.0 - 8.0 [facility] Comment on above: Performed By: #### L IPID ####[facility] [place] [address] Protein mass conc Negative Normal NEGATIVE [facility] Comment on above: Performed By: #### L IPID ####[address] [place] [address] SPECIFIC GRAVITY 1.009 Normal 1.005 - 1.035 [facility] Comment on above: Performed By: #### L IPID ####[address] [place] [address] UROBILINOGEN <2.0 Normal 0.0 - 1.9 [facility] Comment on above: Performed By: #### L IPID ####[id number] [place] [address] URINE CULTURE,BACTERIALon URINE CULTURE,BACTERIAL PATIENT: KATHERINE JUDGE LOCATION: [address]#: [id number] : [birth year] AGE: SEX: F ORDERED BY: LOTUS VANCE: URINE COLLECTED: 10/09/17 17:44ANTIBIOTICS AT ESDRAS.: RECEIVED : 10/10/17 09:59SITE: Straight Cath R E S U L T S URINE CULTURE,BACTERIAL FINAL 10/11/17 09:09 NO GROWTH Normal [facility] Comment on above: Performed By: #### V TDOH ####[facility] [place] [address] CBC AND DIFFERENTIALon 10-05 % AUTOMATED IMMATURE GRAN 0.3 % Normal 0.0 - 0.9 [facility] Comment on above: Result Comment: Perc ent differential counts (%) should be interpreted in the context of the absolute cell counts (cells/L). Performed By: #### L IPID ####[id number] [place] [address] % NEUTROPHIL 54.6 % Normal 40.0 - 80.0 [facility] Comment on above: Performed By: #### L IPID ####[address] [place] [address] Basophils/100 WBC Auto (Bld) 1.0 % Normal 0.0 - 2.0 [facility] Comment on above: Performed By: #### L IPID ####[address] [place] [address] Basophils/100 WBC Auto (Bld) 0.07 x10E9/L Normal 0.00 - 0.10 [facility] Comment on above: Performed By: #### L IPID ####[address] [place] [address] Eosinophils Auto #/vol (Bld) 0.09 10*3/uL Normal 0.00 - 0.40 [facility] Comment on above: Performed By: #### L IPID ####[address] [address] Eosinophils/100 WBC Auto (Bld) 1.3 % Normal 0.0 - 6.0 [facility] Comment on above: Performed By: #### L IPID ####[address] [address] Erythrocyte distribution width Auto Ratio (RBC) 16.2 % High 11.5 - 14.5 [facility] Comment on above: Performed By: #### L IPID ####[address] [address] Hematocrit Auto Volume Fraction (Bld) 35.7 % Low 36.0 - 46.0 [facility] Comment on above: Performed By: #### L IPID ####[address] [address] Hemoglobin mass conc (Bld) 11.0 g/dL Low 12.0 - 16.0 [facility] Comment on above: Performed By: #### L IPID ####[address] [address] Lymphocytes Auto #/vol (Bld) 2.46 10*3/uL Normal 0.80 - 3.00 [facility] Comment on above: Performed By: #### L IPID ####[address] [address] Lymphocytes/100 WBC Auto (Bld) 35.8 % Normal 13.0 - 44.0 [facility] Comment on above: Performed By: #### L IPID ####[address] [address] MCHC Auto mass conc (RBC) 30.8 g/dL Low 32.0 - 36.0 [facility] Comment on above: Performed By: #### L IPID ####[address] [address] MCV Auto Entitic volume (RBC) 100 fL Normal 80 - 100 [facility] Comment on above: Performed By: #### L IPID ####[address] [place] [address] Monocytes Auto #/vol (Bld) 0.48 10*3/uL Normal 0.05 - 0.80 [facility] Comment on above: Performed By: #### L IPID ####[address] [place] [address] Monocytes/100 WBC Auto (Bld) 7.0 % Normal 2.0 - 10.0 [facility] Comment on above: Performed By: #### L IPID ####[address] [address] Neutrophils Auto #/vol (Bld) 3.75 10*3/uL Normal 1.60 - 5.50 [facility] Comment on above: Performed By: #### L IPID ####[address] [address] Platelets Auto #/vol (Bld) 397 10*3/uL Normal 150 - 450 [facility] Comment on above: Performed By: #### L IPID ####[address] [address] RBC Auto #/vol (Bld) 3.58 x10E12/L Low 4.00 - 5.20 [facility] Comment on above: Performed By: #### L IPID ####[address] [address] WBC Auto #/vol (Bld) 6.9 10*3/uL Normal 4.4 - 11.3 [facility] Comment on above: Performed By: #### L IPID ####[address] [address] COMPREHENSIVE PANELon 2017 Albumin mass conc 3.6 g/dL Normal 3.4 - 5.0 [facility] Comment on above: Performed By: #### L IPID ####[address] [address] ALP enzyme act/vol 73 U/L Normal 33 - 136 [facility] Comment on above: Performed By: #### L IPID ####[address] [place] [address] ALT enzyme act/vol 8 U/L Normal 7 - 45 [facility] Comment on above: Result Comment: Daniel ents treated with Sulfasalazine may generate falsely decreased results for ALT. Performed By: #### L IPID ####[address] [address] Anion gap 3 molar conc 16 mmol/L Normal 10 - 20 [facility] Comment on above: Performed By: #### L IPID ####[address] [address] AST enzyme act/vol 16 U/L Normal 9 - 39 [facility] Comment on above: Performed By: #### L IPID ####[address] [address] Bilirubin mass conc 0.4 mg/dL Normal 0.0 - 1.2 [facility] Comment on above: Performed By: #### L IPID ####[address] [address] Calcium mass conc 10.2 mg/dL Normal 8.6 - 10.3 [facility] Comment on above: Performed By: #### L IPID ####[address] [address] Chloride molar conc 101 mmol/L Normal 98 - 107 [facility] Comment on above: Performed By: #### L IPID ####[address] [address] Creatinine mass conc 1.36 mg/dL High 0.50 - 1.05 [facility] Comment on above: Performed By: #### L IPID ####[address] [address] GFR- AM. 45 mL/min/1.73m2 Abnormal >60 [facility] Comment on above: Result Comment: CALC ULATIONS OF ESTIMATED GFR ARE PERFORMED USING THE MDRD STUDY EQUATION FOR THE IDMS-TRACEABLE CREATININE METHODS. CLIN CHEM 2007;53:766-72 Performed By: #### L IPID ####[address] [address] GFR-NON AM. 37 mL/min/1.73m2 Abnormal >60 [facility] Comment on above: Performed By: #### L IPID ####[facility] [place] [address] Glucose mass conc 89 mg/dL Normal 74 - 99 [facility] Comment on above: Performed By: #### L IPID ####[address] [place] [address] HCO3 molar conc (Bld) 25 mmol/L Normal 21 - 32 [facility] Comment on above: Performed By: #### L IPID ####[address] [place] [address] Potassium molar conc 5.8 mmol/L High 3.5 - 5.3 [facility] Comment on above: Performed By: #### L IPID ####[address] [address] Protein mass conc 7.5 g/dL Normal 6.4 - 8.2 [facility] Comment on above: Performed By: #### L IPID ####[address] [address] Sodium molar conc 136 mmol/L Normal 136 - 145 [facility] Comment on above: Performed By: #### L IPID ####[address] [place] [address] Urea nitrogen mass conc 26 mg/dL High 6 - 23 [facility] Comment on above: Performed By: #### L IPID ####[address] [address] MAGNESIUMon 10-05-2017 Magnesium mass conc 2.24 mg/dL Normal 1.60 - 2.40 [facility] Comment on above: Performed By: #### L IPID ####[address] [address] VIT B1-THIAMINE WHOLE BLDon 09-11-2017 VIT B1-THIAMINE WHOLE BLD 133 nmol/L Normal 70-180 [facility] Comment on above: Result Comment: INTE RPRETIVE INFORMATION: Vitamin B1, Whole BloodThis assay measures the concentration of thiamine diphosphate(TDP), the primary active form of vitamin B1. Approximately 90percent of vitamin B1 present in whole blood is TDP. Thiamine andthiamine monophosphate, which comprise the remaining 10 percent,are not measured.Test developed and characteristics determined by [facility]. See Compliance Statement B: [facility]/CSPerformed by [employer],[address] [place] [place] [address] amd.[facility], Noble Hernandez MD - Lab. Director Performed By: #### V TB1W ####[facility] [place] [address] Daily Progress Note-Medicine on 09-08-2017 Protein mass conc Service: Medicine Rick bjective Data:KATHERINE JUDGE is a 82 year old Female who is Hospital Day # 4. Objective Data: Objective Information:T [id number]/6193% Date/Time09/08 10: 10: 10: 10: 10:22Range(36.5C - [...] Urine STRAW Reference Range: STRAW,YELLOWAppearance, Urine CLEARSpecific Dobbins, Urine 1.005pH, Urine 6.0Protein, Urine NEGATIVEGlucose, Urine [...] hypokalemia,hypomagnesemia and colitis was admitted from the [facility] emergency room due toaltered mental status. Acute encephalopathy-clearedMRI shows multiple puntate lesion and cortical contusionseen by neurology, likely result from fall, no concern for stroke Status post unwitnessed fall-Periorbital contusion-EKG showed normal sinus rhythm with RBBB and some ST changes in the inferiorleads.-negative orthostatrics Hypokalemia: resolved CODE STATUS: DO NOT RESUSCITATE [facility] longterm records. Patient is back to baseline neurologically, plan to discharge back to nursinghome today. Nutrition Diagnosis:? Nutrition DiagnosisAgree with dietitian?s assessment and diagnoses as stated.Severe protein calorie malnutrition related to inadequate oral intake asevidence by pt with severe muscle/ fat depletion, inadequate oral intake,unintended weight loss (4.5% in 3 months), and failure to thrive.. Electronic Signatures:Roslyn Eid) (Signed 08-Sep-2017 12:58)Authored: Service, Subjective Data, Objective Data, Assessment and Plan,Signature/Cosignature/A ttestation Last Updated: 08-Sep-2017 12:58 by Roslyn Eid) Normal [facility] Consulton 09-07-2017 Consult Service:Consult:Reas on: fall, possible CVA History of Present [...] recollection offall. does have ecchymotic area left episcopalian.Previous records reviewed, BP was elevated 2 weeks ago. Pt is known to me, h/o HTN, Aortic stenosis, CABG. She denies any CHF or ACSsxs. PMH: coronary artery disease, status post 2012 circumflex angioplasty, statuspost CABG, last cath patent SVG to the RCA, atretic STRONG to the obtusemarginal, mild diffuse disease in the left main and LAD. hypertension, hyperlipidemia, anemia, and gastrointestinal bleeding. Review Family/Social History and ROS:Family History:Family History: reviewed and not pertinent to presenting problem Social History: Smoking Status: never smokerAlcohol Use: deniesDrug Use: deniesSocial History:Usually at home, independent, son [facility] dtr [facility] Incomplete ROS: patient's impaired mental status Constitutional: [...] Confusion? Restoril: Confusion Objective: Objective Information: T YSQCGsJ2Gnlqz44.63601958/709 4%Date/Time09/07 19: 19: 19: 19: 19:58Range(36.5C - [...] Appropriate mood and behaviorSkin: Warm and dry, [place], Ecchymotic bruising left episcopalian. Medications: Medications: Continuous Medications ---- 1. Sodium [...] laboratory results: Basic Metabolic Panel Trending View Bfwovl13-Kbh-3418 05:45:00 05-Sep-2017 08:30:00Glucose, Vbqrp595 H 111 CPK341 138K3.8 3.2 DIO696 104Bicarbonate, Serum27 26Anion Gap, Serum12 11BUN7 28RRAEO5.57 0.75GFR-Non >60 >60GFR->60 >60Calcium, Serum8.7 8.9 Vitamin B12, Serum 06-Sep-2017 05:45:00 ResultValueVitamin B12, Serum 770 Thyroid Stimulating Hormone, Serum 06-Sep-2017 05:45:00 ResultValueThyroid Stimulating Hormone, Serum 2.11 Vitamin D (25-Hydroxy), Level 06-Sep-2017 05:45:00 ResultValueVitamin D (25-Hydroxy), Level 19 A Ammonia, Plasma 06-Sep-2017 05:45:00 ResultValueAmmonia, Plasma 19 Folate, Serum 06-Sep-2017 05:45:00 ResultValueFolate, Serum > 24.0 Troponin I, Serum Trending View Owbwls90-Fhu-2722 11:40:00 05-Sep-2017 08:30:00 05-Sep-2017 01:49:00Troponin I, Serum0.02 0.02 0.02 Complete Blood Count 05-Sep-2017 08:30:00 ResultValueWhite Blood Cell Count 10.6Red Blood Cell Count 2.72 LHGB 8.5 LHCT 27.1 L[facility]V [facility] 31.4 LPLT 359RDW-CV 15.5 H Lactate, Level 05-Sep-2017 01:49:00 ResultValueLactate, Level 1.0 Urinalysis 05-Sep-2017 01:37:00 ResultValueColor, Urine STRAW Reference Range: STRAW,YELLOWAppearance, Urine CLEARSpecific [place]obb[place], Urine 1.005pH, Urine 6.0Protein, Urine NEGATIVEGlucose, Urine NEGATIVEBlood, Urine NEGATIVEKetones, Urine NEGATIVEBilirubin, Urine NEGATIVEUrobilinogen, Urine <2.0Nitrite, Urine NEGATIVELeukocyte Esterase, Urine NEGATIVE Complete Blood Count + Differential 05-Sep-2017 01:36:00 ResultValueWhite Blood Cell Count 11.8 HRed Blood Cell Count 2.56 LHGB 8.4 LHCT 25.6 LMCV 100HC 32.8PLT 422RDW-CV 15.3 HNeutrophil % 70.6Immature Granulocytes [...] MRA neck. The study was interpreted at [facility]. MRA Head without Contrast [Sep 06 [...] 22.2 cm2LA Area A2C: 19.3 cm2LA [place] A4C: 5.9 cmLA [place] A2C: 5.4 cmLA Volume Index: 40.5 ml/m2RA VOLUME BY A/L METHOD: Normal Ranges:RA Vol A4C: 17.8 ml (8.3-19.5ml)RA Vol Index A4C: 11.5 ml/m2RA Area A4C: 9.6 cm2RA [place] A4C: 4.4 cmM-MODE MEASUREMENTS: Normal Ranges:Ao Root: [...] standing today.Cont. Imdur, Plavix, and resume PO b8iodiqvm.Monitor Orthostatic vitals another 24 hrs.Continue telemetry Electronic Signatures:Ventura Thacker) (Signed 07-Sep-2017 21:58)Authored: Service, History of Present Illness, Review Family/Social Historyand ROS, Allergies, Objective, Assessment/Recommendations,S ignature/Cosignature/Attesta tion Last Updated: 07-Sep-2017 21:58 by Ventura Thacker) [facility] Daily Progress Note-Neurolog yon 09-07-2017 Protein mass conc Service: Neurology Subjective Data:KATHERINE JUDGE is a 82 year old Female who is Hospital Day # 2. Objective Data: Objective Information:T KXBAIfU8Dqcrl22.87390320/669 2%Date/Time09/06 21: 18: 21: 18: 21:Range(36.7C - 37.4C ) (73 - 96 ) (16 - 18 ) (111 - 189 )/ (66 - 104 )(92% - 97% )Highest temp of 37.4 C was recorded at 09/06 12:45 Pain at Rest reported at 09/06 20:35: 8Lokoxnxllyb0/29 21:29 P EHXepsf34640 / 64 (138 - 162 ) / (64 - 87 )Btnucni70675 / 71 (136 - 146 ) / (68 - 82 )Ximbemna489807 / 61 (101 - 124 ) / [...] MRA neck. The study was interpreted at [facility]. MRA Neck without Contrast [Sep 06 [...] MRA neck. The study was interpreted at [facility]. MRA Head without Contrast [Sep 06 [...] MRA neck. The study was interpreted at [facility]. MRI Brain without Contrast [Sep 06 [...] Updated: 06-Sep-2017 22:21 by Altagracia Nicolas) Normal [facility] Discharge Yvvepss5gt 07-30-2 018 Protein mass conc Discharge Orders:Ant icipated Discharge Date:? Anticipated Discharge Cype78-Oip-1406? Anticipated Discharge Time11:00 Problem List: Additional Dx:? Hypokalemia: Catalog Name: Hypokalemia? Fall: Catalog Name: Unspecified fall, initial encounter? Leukocytosis: Catalog Name: Elevated white blood cell count, unspecified? Encephalopathy: Catalog Name: Encephalopathy, unspecified? Essential hypertension: Catalog Name: Essential (primary) hypertension? CAD (coronary artery disease): Catalog Name: Atherosclerotic heart diseaseof [place] coronary artery without angina pectoris? Hypercalcemia: Catalog [...] Medical HistoryCABG (2 vessel): Past Surgical History, 06-Hvb-2028RBV: Past Medical HistoryNon ST elevation [place]: Past Medical History, 44-Nqg-0857Spkzwaht atherosclerosis: Past Medical HistorySepsis: Past Medical HistoryVenous thromboembolism: Past Medical HistoryChronic anemia: Past Medical HistoryNarcotic Use: OtherClostridium difficile toxin (C-Diff): Infection Control, 27-Aug-2012, [facility] ( [facility])Congestive Heart Failure (CHF): Past Medical HistoryMethicillin-Resistant Staph Aureus (MRSA): Infection Control, Mar 2012, sputumFamily spokesperson: Other, CARLOS [phone] BROTHERPAUL VELOZ [phone] Information: Contacts, son Ganga [phone] difficile toxin (C-Diff): Infection Control, 08-Jul-2017 Hospital Providers:Provider RoleProvider Name? Magui Love? Brionna Galindo? Benjy Pruitt Activity:activity as tolerated. May shower. Hospital Course (Home Care/Gold Form):Hospital Course:? Hospital Course: include significant abnormal lab -xfbq-whc female with a past medical history of failure to thrive,gastrocutaneous fistula, constipation, ileus, small bowel obstruction,transient ischemic colitis, anemia, protein calorie malnutrition, hypokalemia,hypomagnesemia and colitis was admitted from the [facility] emergency room due toaltered mental status. Acute [...] will monitor Hypokalemia-We will repeat labs DVT gpjtmyftsgn-Zsumjlm-dw light of cortical contusion and possible punctate lesions which maybe secondary to injury will d/c CODE STATUS: DO NOT RESUSCITATE [facility] longterm records. Patient is back to baseline neurologicallywill [...] ? Reason for Referralpost hospitalization ? Scheduled Date/Nbrf64-Zky-4778 11:00? [address] [address]? Phone [phone]? CommentsPlease arrive 10-15 minutes early, bring photo ID, insurance cards,discharge summary, and a list of current medications. Please call the officeif you need to change this appointment. Follow-Up Appointment 02:? Physician/Dept/ServiceDr. Altagracia Nicolas Neurology ? Reason for Referralpost hospitalization ? Scheduled Date/Jxmw01-Bda-7050 11:00? [id number] [address]? Phone [phone]? CommentsPlease arrive 10-15 minutes early, bring photo ID, insurance cards,discharge summary, and a list of current medications. Please call the officeif you need to change this appointment. Gold Form - Nursing Summary:Special Treatments/Procedures (in past 14 days):? Chemotherapyno? Dialysisno? IV Medicationno? Oxygen Therapyno? Transfusionsno? Feverno? Radiationno? Ventilatorno? Tracheostomyno? Suctioningno Nutrition:? Nutritional Statusfeeds self Sensory/Comfort:? Visionadequate? Hearingadequate? Speechclear? Painno Elimination:? Bladdercontinent? Bowelcontinent? Last Bowel Nagxndcy01-Czh-5689? Toiletingtoilet Safety:? Siderailsno? Restraintsno? Sitterno? Fall Riskprevious falls, weakness Medication/Hygiene/Mobility: ? Medication Administrationassist? Bathingassist? Dressingassist? Bed Mobilityassist? Wheelchairassist? Transfersassist? Ambulationassist Electronic Signatures:Elida Calderón (RN) (Signed 08-Sep-2017 09:01)Authored: Gold Form - Nursing Brionna Pearl) (Signed 07-Sep-2017 20:40)Authored: Discharge Orders, Hospital Course (Home Care/Gold Form), ProviderFINAL REVIEW of Orders, Appointments, Gold Form - Sheet Combining Operator SummaryBrionna Hill (PT ACC REP) (Signed 08-Sep-2017 09:49)Authored: Appointments Last Updated: 08-Sep-2017 09:49 by Brionna Hill (PT ACC REP) Normal [facility] Nutrition Therapy-Assessment on 09-07-2017 Nutrition Therapy-Assessment Assessment Subjective/Objective:Note Type: Assessment Note Authored by: Registered Dietitian NutritionistPager Number: [phone] Nutrition Note:The patient is a 82 year [...] bowel obstruction (disorder):Acute bowel obstruction: Onset Date: 54-Elu-7544Eelnhjcvzwc abdominal pain (finding): Chronic:Fluid overload pulmonary edema:Clostridium difficile infection:Chest pain:Diarrhea: Other Dx/Proc:CHEST PAIN: Description: CHEST PAINUnstable angina/chest pain: Description: Unstable angina/chest painGastrointestinal bleeding: Description: Gastrointestinal bleeding1 Colitis, 2 Abdomen Pain 3 Cholelithiasis: Onset Date: 73-Ajn-7670Xhidd failure: Description: Heart failurePNEUMONIA:Diabetes mellitus: Description: Diabetes [...] bowel obstruction (disorder):Acute bowel obstruction: Onset Date: 27-Bjr-5678Ulbvezobavp abdominal pain (finding):Acute bowel obstruction:Acute bowel obstruction: Objective Information: T KCTWXhK5Wxfie58.95434664/799 7%Date/Time09/07 10: 10: 10: 10: 10:58Range(36.5C - 37.4C ) (82 - 99 ) (16 - 19 ) (111 - 171 )/ (66 - 80 ) (92%- 98% )Highest temp of 37.4 C was recorded at 09/06 12:45 Pain at Rest reported at 09/07 9:30: 0 ---- Intake and Output -----Mn/Dy/Year TimeIntakeOutputNetJul 2017 10:00 [id number] 2017 2:00 [id number] The Intake and Output Totals for the last 24 hours are:IhlodkPoeoqwPes8669cgwjv ull Intake Output Enteral - Oral 600 mL IV Fluids 600 mL Height/Weight:Height in feet: 5 feetHeight in inches: 0 inch(es)Height in cm: 152.4 centimeter(s)Weight (kg): 43.8BMI (kg/m2): 18.858 square meterDBW (kg): 45%DBW: 97Weight history/ % weight change: 08/31/17 -- 40.6kg06/18/17 -- 45.9kg, 4.5% weight loss in 3 months; noted but not signfiican03/20/17 -- 46.8kg -- 6.4% weight loss in 6 months; not uccrxwlnyek39/13/17 -- 45.9kg07/30/16 -- 49kg -- 10.6% weight [...] D (25-Hydroxy), Level 19 A Ammonia, Plasma 29-Ishan-2018 05:45:00 ResultValueAmmonia, Plasma 19 Folate, Serum 06-Sep-2017 05:45:00 ResultValueFolate, Serum > 24.0 Nutrition Labs:Special Chemistry: 03-Jul-2017 10:15, Hemoglobin T7ERfzawecpnb A1C, Level5.3 Diagnosis of Diabetes-Adults Non-Diabetic: < or = 5.6% Increased risk for developing diabetes: 5.7-6.4% Diagnostic of diabetes: > or = 6.5%. Monitoring of Diabetes Age (y) Therapeutic Goal (%) Adults: >18 <7.0 Pediatrics: 13-18 <7.5 7-12 <8.0 0- 6 7.5-8.5 [place] [employer]. Diabetes Care 33(S1), Feb 2009.Estimated Average Sirgdty054Hefogimukfowp: 06-Sep-2017 05:45, Vitamin D (25-Hydroxy), LevelVitamin D (25-Hydroxy), Level19.DEFICIENCY: < 20 NG/MLINSUFFICIENCY: 20-29 NG/MLOPTIMUM LEVEL: 30-80 NG/MLPOSSIBLE TOXICITY: > 80 NG/MLTHIS ASSAY ACCURATELY QUANTIFIES THE SUM OFVITAMIN D3, 25-HYDROXY AND VIT D2,25-HYDROXY. Current Active Medications/PN:Isosorbide Mononitrate Extended Release, Tablet, Extended Release (IMDUR)DOSE = 60 mg Oral Daily, 43-Edo-6975Pxinwwbwi Chloride Powder Packet, (K-SHAUN)DOSE = 20 mEq Oral DailyNotes from Pharmacy: Substitution for Potassium Chloride Oral Liquid 20 mEqDaily, 38-Odi-1515Nxrxnhmmop Injectable, (LOPRESSOR)DOSE = 5 mg IntraVenous Push Every 6 HoursClinician Notes: hold for SBP<105 or HR<60, 91-Vod-8196Bkaptxxdt 5% TransDermal, Film (LIDODERM)DOSE = 1 patch TransDermal Every 24 HoursClinician Notes: to back, 16-Nxj-1236Runwflgwmsrck, Tablet (TYLENOL)DOSE = 650 mg Oral Every 6 Hours, PRN Pain - Mild (1-3), 37-Sdx-7889Snkncscbjay, Tablet (PLAVIX)DOSE = 75 mg Oral Daily, 26-Ijx-3400Idtdmvjnfhttjdu (Vitamin D3), TabletDOSE = 1,000 International Unit(s Oral Daily, 46-Ywx-0969Doiqft Chloride 0.9% with Potassium CL 20 mEq Premix Fluid, IV Bag Volume =1,000 mL Run at: 75 mL/hr IntraVenous , 06-Sep-2017 Nutrition Orders:Diet May Not Participate in Room Service, NoOrder entered from Admission Screens., 52-Dla-0122Jqwe, RegularTexture: Soft, 16-Vrm-1928Vsvj Nutritional Supplements, RoutineMagic CupFlavor Preference: [place]; Tinnie, 2 Times a DaySpecial Instructions: Please send [...] trend, mealtime behavior, labs Electronic Signatures:Mikie May (EDEPA HENRIQUEZ) (Signed 07-Sep-2017 12:59)Authored: Assessment Subjective/Objective, Nutrition Focused PhysicalFindings, Estimated Needs, Nutrition Diagnosis, Nutrition Interventions,Nutrition Goals, Nutrition Recommendations, Dietitian Monitoring and EvaluationPlan Last Updated: 07-Sep-2017 12:59 by Mikie May (DEEPA HENRIQUEZ) Normal [facility] AMMONIAon 09-06-2017 Ammonia mass conc (P) 19 umol/L Normal [facility] Comment on above: Result Comment: .REF ERENCE VALUESDAY 1 to DAY 7 <110DAY 8 to DAY 14 < 90DAY 15 to ADULT 16-53 Performed By: #### A MM ####[facility] [id number] [place] [address] BASIC METABOLIC PANELon 08-10 Anion gap 3 molar conc 12 mmol/L Normal 10 - 20 [facility] Comment on above: Performed By: #### B MP ####[facility] [id number] [place] [address] Calcium mass conc 8.7 mg/dL Normal 8.6 - 10.3 [facility] Comment on above: Performed By: #### B MP ####[facility] [id number] [place] [address] Chloride molar conc 104 mmol/L Normal 98 - 107 [facility] Comment on above: Performed By: #### B MP ####[facility] [id number] [place] [address] Creatinine mass conc 0.57 mg/dL Normal 0.50 - 1.05 [facility] Comment on above: Performed By: #### B MP ####[facility] [id number] [place] [address] GFR- AM. >60 Normal >60 [facility] Comment on above: Result Comment: CALC ULATIONS OF ESTIMATED GFR ARE PERFORMED USING THE MDRD STUDY EQUATION FOR THE IDMS-TRACEABLE CREATININE METHODS. CLIN CHEM 2007;53:766-72 Performed By: #### B MP ####[facility] [id number] [place] [address] GFR-NON AM. >60 Normal >60 [facility] Comment on above: Performed By: #### B MP ####[facility] [id number] [place] [address] Glucose mass conc 110 mg/dL High 74 - 99 [facility] [facility] Comment on above: Performed By: #### B MP ####[facility] [id number] [place] [address] HCO3 molar conc (Bld) 27 mmol/L Normal 21 - 32 [facility] Comment on above: Performed By: #### B MP ####[facility] [id number] [place] [address] Potassium molar conc 3.8 mmol/L Normal 3.5 - 5.3 [facility] Comment on above: Performed By: #### B MP ####[facility] [id number] [place] [address] Sodium molar conc 139 mmol/L Normal 136 - 145 [facility] Comment on above: Performed By: #### B MP ####[facility] [id number] [place] [address] Urea nitrogen mass conc 7 mg/dL Normal 6 - 23 [facility] Comment on above: Performed By: #### B MP ####[facility] [id number] [place] [address] Daily Progress Note-Medicine on 09-06-2017 Protein mass conc Service: Medicine Rick bjective Data:KATHERINE JUDGE is a 82 year old Female who is Hospital Day # 2. Patient is back to baseline neurologically. Objective Data: Objective Information:T [id number]/669 4%Date/Time09/06 12: 12: 12: 12: 12:57Range(36.7C - [...] Urine STRAW Reference Range: STRAW,YELLOWAppearance, Urine CLEARSpecific Dobbins, Urine 1.005pH, Urine 6.0Protein, Urine NEGATIVEGlucose, Urine [...] 20:32NSTEMI (non-ST elevated myocardial infarction): Entered Date: [id number]-[id number]:25UTI (urinary tract infection), bacterial: Entered Date: 27-Dec-2016 [...] bowel obstruction: Onset Date: 11-Feb-2012, Entered Date: 99-Dad-[id number] abdominal pain (finding): Entered Date: 11-Feb-2012 18:56 [...] ST Elevation Myocardial Infarction (NSTEMI): Entered Date: 44-Ifn-184758:29Coronary angioplasty/stent (PCI): Entered Date: 12-Dec-2009 15:30Dyspnea: Entered [...] hypokalemia,hypomagnesemia and colitis was admitted from the [facility] emergency room due toaltered mental status. Acute [...] will monitor Hypokalemia-We will repeat labs DVT crwpycietsh-Ffwupve-xs light of cortical contusion and possible punctate lesions which maybe secondary to injury will d/c CODE STATUS: DO NOT RESUSCITATE [facility] longterm records. Patient is back to baseline neurologicallywill continue to monitor Electronic Signatures:Brionna Llanes) (Signed 06-Sep-2017 16:28)Authored: Service, Subjective Data, Objective Data, Assessment and Plan,Signature/Cosignature/A ttestation Last Updated: 06-Sep-2017 16:28 by Brionna Llanes) Normal [facility] FOLATE, SERUMon 09-06-2017 Folate [Mass/volume] in Serum or Plasma > 24.0 Normal >5.0 [facility] Comment on above: Result Comment: Daniel ents receiving more than 5 mg/day of biotin may have interference in test results. A sample should be taken no sooner than eight hours after previous dose. Contact [phone] for additional information. Performed By: #### F OLA2 ####[id number] [place] [address] NR MRA HEAD W/O Con 09-07-19 18 NR MRA HEAD W/O C Name: KATHERINE JUDGE STUDY:NR MRI BRAIN WO; NR MRA HEAD W/O C; NR MRA NECK WO.C; 09/06/2017 12:00pm INDICATION:Signs/Symptoms: Recent fall, CHI, stroke symptoms- evaluate for acutestroke; ALTERED MENTAL STATUS. Stroke protocol. COMPARISON: CT head from 09/05/2017 [id number]; [id number] ORDERING CLINICIAN:ALTAGRACIA NICOLAS; FLAKO GOODMAN TECHNIQUE:Axial T2, FLAIR, DWI and sagittal and coronal T1 weighted images ofbrain were acquired. T0 axial gradient echo T2 imaging was alsoperformed. Nuoa-dc-xjxsgq MRA of the head and neck was [...] [facility]RA neck. [facility]Electronically signed by: TOLU MARTINEZ MD [facility] NR MRA NECK WO.Con NR MRA NECK WO.C Name: KATHERINE JUDGE STUDY:NR MRI BRAIN WO; NR MRA HEAD W/O C; NR MRA NECK WO.C; 09/06/2017 12:00pm INDICATION:Signs/Symptoms: Recent fall, CHI, stroke symptoms- evaluate for acutestroke; ALTERED MENTAL STATUS. Stroke protocol. COMPARISON: CT head from 09/05/2017 [id number]; [id number] ORDERING CLINICIAN:ALTAGRACIA GOODMAN TECHNIQUE:Axial T2, FLAIR, DWI and sagittal and coronal T1 weighted images ofbrain were acquired. T0 axial gradient echo T2 imaging was alsoperformed. Ubmx-ti-idsiux MRA of the head and neck was [...] MRA neck. The study was interpreted at [facility].Electronically signed by: TOLU MARTINEZ MD Normal [facility] NR MRI BRAIN WOon 09-06-2017 NR MRI BRAIN WO Name: KATHERINE JUDGE STUDY:NR MRI BRAIN WO; NR MRA HEAD W/O C; NR MRA NECK WO.C; 09/06/2017 12:00pm INDICATION:Signs/Symptoms: Recent fall, CHI, stroke symptoms- evaluate for acutestroke; ALTERED MENTAL STATUS. Stroke protocol. COMPARISON: CT head from 09/05/2017 [id number]; [id number] ORDERING CLINICIAN:ALTAGRACIA NICOLAS; FLAKO GOODMAN TECHNIQUE:Axial T2, FLAIR, DWI and sagittal and coronal T1 weighted images ofbrain were acquired. T0 axial gradient echo T2 imaging was alsoperformed. Nbnk-vl-zkdjga MRA of the head and neck was [...] MRA neck. The study was interpreted at [facility].Electronically signed by: TOLU MARTINEZ MD Normal [facility] TSHon 09-06-2017 Thyrotropin Qn 2.11 m[IU]/L Normal 0.44 - 3.98 [facility] Comment on above: Result Comment: TSH testing is performed using different testing methodology at [facility] than at other [facility]. Direct result comparisons should only be made within the same method. Performed By: #### T SH2 ####[facility] [id number] [place] [address] VITAMIN B12on 09-06-2017 Cobalamin (Vitamin B12) mass conc 770 pg/mL Normal 211 - 911 [facility] Comment on above: Performed By: #### V TB12 ####[id number] [place] [address] VITAMIN D, 25-HYDROXYon 08-10 VITAMIN D, 25-HYDROXY 19 ng/mL Abnormal [facility] Comment on above: Result Comment: .DEF ICIENCY: < 20 NG/MLINSUFFICIENCY: 20-29 NG/MLOPTIMUM LEVEL: 30-80 NG/MLPOSSIBLE TOXICITY: > 80 NG/MLTHIS ASSAY ACCURATELY QUANTIFIES THE SUM OFVITAMIN D3, 25-HYDROXY AND VIT D2,25-HYDROXY. Performed By: #### V TDOH ####[id number] [place] [address] Admission Risk Screen - Adul ton 09-05-2017 [...] Spiritual Screen:? Are there any cultural, spiritual, catholic practices/values/needs that areimportant for us to know?unable to assess CAGE:Is this an injured patient at a Tra[place] Center [place] no Vaccinations:Vaccination - Influenza Vaccination Screen:? Is [...] 05-Sep-2017 06:29 by Shira Chaidez (RN) Normal [facility] BASIC METABOLIC PANELon 07-2 Anion gap 3 molar conc 11 mmol/L Normal 10 - 20 [facility] Comment on above: Performed By: #### B MP ####[facility] [id number] [facility] [place] [address] Calcium mass conc 8.9 mg/dL Normal 8.6 - 10.3 [facility] Comment on above: Performed By: #### B MP ####[id number] [place] [address] Chloride molar conc 104 mmol/L Normal 98 - 107 [facility] Comment on above: Performed By: #### B MP ####[facility] [id number] [place] [address] Creatinine mass conc 0.75 mg/dL Normal 0.50 - 1.05 [facility] Comment on above: Performed By: #### B MP ####[facility] [id number] [place] [address] GFR- AM. >60 Normal >60 [facility] Comment on above: Result Comment: CALC ULATIONS OF ESTIMATED GFR ARE PERFORMED USING THE MDRD STUDY EQUATION FOR THE IDMS-TRACEABLE CREATININE METHODS. CLIN CHEM 2007;53:766-72 Performed By: #### B MP ####[facility] [id number] [place] [address] GFR-NON AM. >60 Normal >60 [facility] Comment on above: Performed By: #### B MP ####[facility] [id number] [place] [address] Glucose mass conc 111 mg/dL High 74 - 99 [facility] Comment on above: Performed By: #### B MP ####[facility] [id number] [place] [address] HCO3 molar conc (Bld) 26 mmol/L Normal 21 - 32 [facility] Comment on above: Performed By: #### B MP ####[facility] [id number] [place] [address] Potassium molar conc 3.2 mmol/L Low 3.5 - 5.3 [facility] Comment on above: Performed By: #### B MP ####[facility] [id number] [place] [address] Sodium molar conc 138 mmol/L Normal 136 - 145 [facility] Comment on above: Performed By: #### B MP ####[facility] [id number] [place] [address] Urea nitrogen mass conc 11 mg/dL Normal 6 - 23 [facility] Comment on above: Performed By: #### B MP ####[facility] [id number] [place] [address] BLOOD CULTURE, BACTERIALon 0 09-05-2017 BLOOD CULTURE, BACTERIAL PATIENT: KATHERINE JUDGE LOCATION: [address]#: [id number] : [birth year] AGE: SEX: F ORDERED BY: LOTUS VANCE: Blood COLLECTED: 09/05/17 01:49ANTIBIOTICS AT ESDRAS.: RECEIVED : 09/05/17 11:22SITE: PERIPHERAL R E S U L T S BLOOD CULTURE, BACTERIAL FINAL 09/10/17 11:42 No Growth at 1 days No Growth at 2 days No Growth at 3 days No Growth at 4 days NO GROWTH - FINAL REPORT Normal [facility] Comment on above: Performed By: #### L IPID ####[address] [address] BLOOD CULTURE, BACTERIAL PATIENT: KATHERINE JUDGE LOCATION: [address]#: [id number] : [birth year] AGE: SEX: F ORDERED BY: LOTUS VANCE: Blood COLLECTED: 09/05/17 01:49ANTIBIOTICS AT ESDRAS.: RECEIVED : 09/05/17 11:22SITE: PERIPHERAL R E S U L T S BLOOD CULTURE, BACTERIAL FINAL 09/10/17 11:42 No Growth at 1 days No Growth at 2 days No Growth at 3 days No Growth at 4 days NO GROWTH - FINAL REPORT Normal [facility] Comment on above: Performed By: #### L IPID ####[facility] [place] [address] CBCon 09-05-2017 Erythrocyte distribution width Auto Ratio (RBC) 15.5 % High 11.5 - 14.5 [facility] Comment on above: Performed By: #### C BC ####[facility] [id number] [address] [place] [address] Hematocrit Auto Volume Fraction (Bld) 27.1 % Low 36.0 - 46.0 [facility] Comment on above: Performed By: #### C BC ####[facility] [id number] [address] [address] Hemoglobin mass conc (Bld) 8.5 g/dL Low 12.0 - 16.0 [facility] Comment on above: Performed By: #### C BC ####[facility] [id number] [address] [place] [address] MCHC Auto mass conc (RBC) 31.4 g/dL Low 32.0 - 36.0 [facility] Comment on above: Performed By: #### C BC ####[facility] [id number] [place] [address] MCV Auto Entitic volume (RBC) 100 fL Normal 80 - 100 [facility] Comment on above: Performed By: #### C BC ####[facility] [id number] [place] [address] Platelets Auto #/vol (Bld) 359 10*3/uL Normal 150 - 450 [facility] Comment on above: Performed By: #### C BC ####[facility] [id number] [place] [address] RBC Auto #/vol (Bld) 2.72 x10E12/L Low 4.00 - 5.20 [facility] Comment on above: Performed By: #### C BC ####[id number] [facility] [place] [address] WBC Auto #/vol (Bld) 10.6 10*3/uL Normal 4.4 - 11.3 [facility] Comment on above: Performed By: #### C BC ####[id number] [facility] [place] [address] CBC AND DIFFERENTIALon 09-05 % AUTOMATED IMMATURE GRAN 0.5 % Normal 0.0 - 0.9 [facility] Comment on above: Result Comment: Perc ent differential counts (%) should be interpreted in the context of the absolute cell counts (cells/L). Performed By: #### L IPID ####[address] [address] % NEUTROPHIL 70.6 % Normal 40.0 - 80.0 [facility] Comment on above: Performed By: #### L IPID ####[address] [address] Basophils/100 WBC Auto (Bld) 0.04 x10E9/L Normal 0.00 - 0.10 [facility] Comment on above: Performed By: #### L IPID ####[address] [address] Basophils/100 WBC Auto (Bld) 0.3 % Normal 0.0 - 2.0 [facility] Comment on above: Performed By: #### L IPID ####[address] [address] Eosinophils Auto #/vol (Bld) 0.13 10*3/uL Normal 0.00 - 0.40 [facility] Comment on above: Performed By: #### L IPID ####[address] [address] Eosinophils/100 WBC Auto (Bld) 1.1 % Normal 0.0 - 6.0 [facility] Comment on above: Performed By: #### L IPID ####[address] [address] Erythrocyte distribution width Auto Ratio (RBC) 15.3 % High 11.5 - 14.5 [facility] Comment on above: Performed By: #### L IPID ####[address] [address] Hematocrit Auto Volume Fraction (Bld) 25.6 % Low 36.0 - 46.0 [facility] Comment on above: Performed By: #### L IPID ####[address] [address] Hemoglobin mass conc (Bld) 8.4 g/dL Low 12.0 - 16.0 [facility] Comment on above: Performed By: #### L IPID ####[address] [address] Lymphocytes Auto #/vol (Bld) 2.55 10*3/uL Normal 0.80 - 3.00 [facility] Comment on above: Performed By: #### L IPID ####[address] [address] Lymphocytes/100 WBC Auto (Bld) 21.6 % Normal 13.0 - 44.0 [facility] Comment on above: Performed By: #### L IPID ####[address] [address] MCHC Auto mass conc (RBC) 32.8 g/dL Normal 32.0 - 36.0 [facility] Comment on above: Performed By: #### L IPID ####[address] [address] MCV Auto Entitic volume (RBC) 100 fL Normal 80 - 100 [facility] Comment on above: Performed By: #### L IPID ####[address] [address] Monocytes Auto #/vol (Bld) 0.70 10*3/uL Normal 0.05 - 0.80 [facility] Comment on above: Performed By: #### L IPID ####[facility] [place] [address] Monocytes/100 WBC Auto (Bld) 5.9 % Normal 2.0 - 10.0 [facility] Comment on above: Performed By: #### L IPID ####[facility] [place] [address] Neutrophils Auto #/vol (Bld) 8.31 10*3/uL High 1.60 - 5.50 [facility] Comment on above: Performed By: #### L IPID ####[facility] [place] [address] Platelets Auto #/vol (Bld) 422 10*3/uL Normal 150 - 450 [facility] Comment on above: Performed By: #### L IPID ####[facility] [place] [address] RBC Auto #/vol (Bld) 2.56 x10E12/L Low 4.00 - 5.20 [facility] Comment on above: Performed By: #### L IPID ####[facility] [place] [address] WBC Auto #/vol (Bld) 11.8 10*3/uL High 4.4 - 11.3 [facility] Comment on above: Performed By: #### L IPID ####[address] [place] [address] CHEST 1 VIEWon 09-05-2017 CHEST 1 VIEW [...] hernia.Electronically signed by: CAMILLE VELÁZQUEZ MD Normal [facility] COMPREHENSIVE PANELon 2017 Albumin mass conc 3.3 g/dL Low 3.4 - 5.0 [facility] Comment on above: Performed By: #### L IPID ####[address] [place] [address] ALP enzyme act/vol 95 U/L Normal 33 - 136 [facility] Comment on above: Performed By: #### L IPID ####[address] [address] ALT enzyme act/vol 16 U/L Normal 7 - 45 [facility] Comment on above: Result Comment: Daniel ents treated with Sulfasalazine may generate falsely decreased results for ALT. Performed By: #### L IPID ####[address] [place] [address] Anion gap 3 molar conc 14 mmol/L Normal 10 - 20 [facility] Comment on above: Performed By: #### L IPID ####[address] [address] AST enzyme act/vol 19 U/L Normal 9 - 39 [facility] Comment on above: Performed By: #### L IPID ####[address] [place] [address] Bilirubin mass conc 0.4 mg/dL Normal 0.0 - 1.2 [facility] Comment on above: Performed By: #### L IPID ####[address] [address] Calcium mass conc 9.2 mg/dL Normal 8.6 - 10.3 [facility] Comment on above: Performed By: #### L IPID ####[address] [place] [address] Chloride molar conc 99 mmol/L Normal 98 - 107 [facility] Comment on above: Performed By: #### L IPID ####[address] [place] [address] Creatinine mass conc 0.99 mg/dL Normal 0.50 - 1.05 [facility] Comment on above: Performed By: #### L IPID ####[address] [place] [address] GFR- AM. 65 mL/min/1.73m2 Normal >60 [facility] Comment on above: Result Comment: CALC ULATIONS OF ESTIMATED GFR ARE PERFORMED USING THE MDRD STUDY EQUATION FOR THE IDMS-TRACEABLE CREATININE METHODS. CLIN CHEM 2007;53:766-72 Performed By: #### L IPID ####[address] [address] GFR-NON AM. 54 mL/min/1.73m2 Abnormal >60 [facility] Comment on above: Performed By: #### L IPID ####[address] [place] [address] Glucose mass conc 94 mg/dL Normal 74 - 99 [facility] Comment on above: Performed By: #### L IPID ####[address] [address] HCO3 molar conc (Bld) 28 mmol/L Normal 21 - 32 [facility] Comment on above: Performed By: #### L IPID ####[address] [address] Potassium molar conc 3.4 mmol/L Low 3.5 - 5.3 [facility] Comment on above: Performed By: #### L IPID ####[address] [address] Protein mass conc 6.9 g/dL Normal 6.4 - 8.2 [facility] Comment on above: Performed By: #### L IPID ####[address] [address] Sodium molar conc 138 mmol/L Normal 136 - 145 [facility] Comment on above: Performed By: #### L IPID ####[address] [place] [address] Urea nitrogen mass conc 16 mg/dL Normal 6 - 23 [facility] Comment on above: Performed By: #### L IPID ####[address] [address] [address] HEAD WO CONTRASTon 2017 CT HEAD [...] ischemic changes.Electronically signed by: CAMILLE VELÁZQUEZ MD [facility] Consult - Neuroon 09-05-2017 Consult - Neuro Service:Consult:Cons ult requested by (Attending Name): Dr. Abraham: Syncope History of Present Illness:HPI:This is a 82 year old woman, poor historian, amnestic for her fall,unwitnessed, resulting in a CHI, resulting in a left forehead contusion, shewas found on the floor. She was recently discharged from this hospital on kjr08lm after management ofa SBO. She has had FTT, repeated abdominal surgeries. PMH: CAD, depression,anemia. Nursing tells me that she has had visual hallucinations: reaching forthings she apparently sees in the air. 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 PMH, PSH, SH, and FH were reviewed [...] Ativan: Confusion? Restoril: Confusion Objective: Objective Information: Hector [id number]/92D ate/Time09/05 6: 6: 6: 6:16Range(36.7C - 36.7C [...] exam was normal. In both upper extremities, cicjtm-arfb-qaioqnjtl intact without dysmetria or overshoot.In both lower extremities, idkg-ky-cdzg was intact. DONALD were intact in bothupper [...] Urine STRAW Reference Range: STRAW,YELLOWAppearance, Urine CLEARSpecific Dobbins, Urine 1.005pH, Urine 6.0Protein, Urine NEGATIVEGlucose, Urine [...] Updated: 05-Sep-2017 12:10 by Altagracia Nicolas) Normal [facility] Discharge Planning Noteon Discharge Planning Note Discharge Needs Assessment:? Discharge Planning Assessment [id number]? Discharge Planning Assessment Completed byMeghan Haro RN-BC? Readmission Within the Last 30 Daysprevious discharge plan unsuccessful? Primary Care PhysicianLeigh Garnett Adult Information:? Reason for Admission as Stated by PatientAMS? Primary Support Person During Hospitalizationdontae Schuler ? Lives Withspouse? Financial Concernsnone Other Factors:? Functional Screen: In the recent/past 2-4 weeks, patient or family havenoticeda significant change in speech or language(1) Discharge Planning:Discharge Plannin09/05/17 From [facility]. Just d/c from [facility] 09/03/17, had small bowelobstruction. Unwitnessed fall, change in mental status, confused. Shouldreturn to SNF when medically stable. Will follow pt through hospital stay andadjust plan as needed. Meghan Haro RN-BC 09/07/17 1054 DSC: Return SNF referral sent to [facility] awaiting response.Olga Lehman Discharge Procurement Intern [phone] 09/07/17 1136 DSC: Response received from following shelter facilities:[facility] has accepted patient. Olga Lehman Discharge SupportCoordinator [phone] 09/08/17 1135 DSC: No 7000 needed, final orders attached and sent to facility.Olga Lehman Discharge Procurement Intern [phone] 09/08/17 late entry PCN: [employer] General Supervisor/Paper Steamer notified transportset for 1300 potato picker, via wheelchair with [facility] providingtransport. Keyana Haro, Corporate Treasury Analyst, Final Disposition/Discharge:Dispos ition/Discharge Information: Discharge/Transfer Information:? Discharge/Transfer Date/[id number] 13:00? Discharge Modewheelchair? Transportation Methodtransportation service? Valuables/Medications/Belong ings Returnedyes? Belongings CommentDischarged to SNF. IV out, tip intact. Telemetry placed inbasket. All questions answered. Electronic Signatures:Olga Lehman (COOR) (Signed 08-Sep-2017 11:32)Authored: Discharge Planning Elida CoatsRN) (Signed 08-Sep-2017 13:17)Authored: Final Disposition/DischargeLuca Harojulián King (CLIN COOR) (Signed 05-Sep-2017 14:09)Authored: Discharge Planning Alex Monson (COOR) (Signed 08-Sep-2017 16:20)Authored: Discharge Planning Note Last Updated: 08-Sep-2017 16:20 by Alex Haro (COOR) References:1. Data Referenced From "Admission Risk Screen - Adult" 09/05/2017 6:24 AM Normal [facility] History and Physicalon 09-05 History and Physical History of Present Illness:Admission Reason: Acute encephalopathyHPI:82-year-ol d female with a past medical history of failure to thrive,gastrocutaneous fistula, constipation, ileus, small bowel obstruction,transient ischemic colitis, anemia, protein calorie malnutrition, hypokalemia,hypomagnesemia and colitis was admitted from the [facility] emergency room due toaltered mental status. [facility] [...] Confusion? Restoril: Confusion Objective: Objective Information: T [id number]/92D ate/Time09/05 6: 6:167/28 6:167/28 6:16Range(36.7C - 36.7C ) (90 - 90 [...] Urine STRAW Reference Range: STRAW,YELLOWAppearance, Urine CLEARSpecific Dobbins, Urine 1.005pH, Urine 6.0Protein, Urine NEGATIVEGlucose, Urine [...] hypokalemia,hypomagnesemia and colitis was admitted from the [facility] emergency room due toaltered mental status. Acute [...] prophylaxis-Lovenox CODE STATUS: DO NOT RESUSCITATE [facility] longterm records. Signatures/Attestation/Certi fication:Attending Provider ? Inpatient Certification StatementN/A - observationpatient/other outpatient visits Electronic Signatures:Flako Goodman) (Signed 05-Sep-2017 07:49)Authored: History of Present Illness, Comorbidities, Allergies, Objective,Assessment and Plan, Signatures/Attestation/Certi fication Last Updated: 05-Sep-2017 07:49 by Flako Goodman) Normal [facility] LACTATEon 09-05-2017 Lactate molar conc 1.0 mmol/L Normal 0.4 - 2.0 [facility] Comment on above: Result Comment: Hali puncture immediately after or during the administration of Metamizole may lead to falsely low results. Testing should be performed immediately prior to Metamizole dosing. Performed By: #### L IPID ####[address] [place] [address] PT/INRon 09-05-2017 INR Coag RelTime (PPP) 1.1 {INR} Normal 0.9 - 1.1 [facility] Comment on above: Performed By: #### L IPID ####[address] [place] [address] Prothrombin time (PT) Coag time (PPP) 11.5 s Normal 9.8 - 12.7 [facility] Comment on above: Performed By: #### L IPID ####[address] [place] [address] Patient Profile - Adult v2on 09-05-2017 Protein mass conc Profile:Initial Info :How to be AddressedAlice(1)Spoken Language PreferredEnglish (2)Source of InformationpatientAre you currently using the Personal Electronic Health Record or QCoefficientGT Solar(1)Stated Reason for Admissionunable to respond appropriately.[facility] departmentPatient BelongingsnoneMedications [facility] to [facility] Health:Weight in kg43.8 kilogram(s)Weight in lbs96.7 [...] Shira Chaidez (CINTHYA) References:1. Data Referenced From "Patient Profile - Adult v2" 08/26/2017 04:19 AM2. Data Referenced From "Triage - ED" 09/05/2017 12:33 AM Normal [facility] Provider Note - ED v2on 08-10 Protein mass conc Provider Note - ED v 2:Chart Review: ED NOTESED NOTES: Patient with history of cecal volvulus required surgery at [facility] few monthsago, patient has prolonged post surgical difficulty and subsequently developedsmall bowel obstruction, required transfer to [facility] recentlyand after discharge from [facility] 2 days ago she has been [...] for evaluation. Patient herself cannot provide history. Patient'[facility] physician Dr. royal was kind enough [...] oral tabletInstructions: 1 tab(s) orally once a eamK-C-Cg-F-Sa Drug Name: tiZANidine 2 mg oral tabletInstructions: [...] difficile toxin (C-Diff) Additional Notes:came with ( [facility]) Status:Active Description:Methicillin-Resi stant Staph Aureus (MRSA) Additional Notes:sputum Status:Active Description:Clostridium difficile toxin (C-Diff) Status:Active Other Description:Narcotic Use Status:Active Description:Family spokesperson Additional Notes: CARLOS [phone] BROTHER RYLAND [phone] Status:Active Past Medical History Description:colitis Status:Active Description:mitral valve regurgitation Status:Active Description:gi bleed Status:Active Description:Hypertension (HTN) Status:Active Description:arthritis Status:Active Description:herniated disc lumbar area Status:Active Description: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 Description:depression Status:Active Description:anxiety Status:Active Description:osteoporosis Status:Active Description:diverticulitis Status:Active Description:umbilical hernia Status:Active Description:UTI Status:Active Description:GERD Status:Active Description:CAD Status:Active Description:Non ST elevation W[place] Status:Active Description:Coronary atherosclerosis Status:Active Description:Sepsis Status:Active Description:Venous [...] Urine STRAW Reference Range: STRAW,YELLOWAppearance, Urine CLEARSpecific Dobbins, Urine 1.005pH, Urine 6.0Protein, Urine NEGATIVEGlucose, Urine [...] 2:52AM] VITAL SIGNS: T PRBP SpO2O2(LPM) %FiO2 Pnlwcu25-Mex-4781 02:42:00-36.47567848/62 92 room air, no izjtkpinkfzfobubhh07-Xsq-989 8 00:33:00-36.05305621/75 94 room air, no respiratorysupport EKG INTERPRETATION:EKG Date/Time: 05-Sep-2017 00:34Rate: 83Comments: Sinus rhythm rate of 83. No acute ST segment elevation. Rightbundle-branch block. T-wave abnormality involving the inferior leads, inferiorischemia. Portable. Abnormal EKG. No prior EKG to compare to MEDICAL DECISION MAKING/ED COURSEMDM/ED COURSE: Patient was sent to the emergency room by Dr. Renee with advised to transferpatient to use at [facility].Also discussed case with Anyi Gusman he want patient to be transferred to [facility]. Dr. Michelle accepted patient transferred to [facility] at [facility]. Shows power of employee benefits attorney was not available and I will, Patient'sBrother Came andPatient Transfer Paperwork and Agree with the Transfer to the [facility]. CLINICAL IMPRESSIONDiagnosis/Annotati on: ED Dx Name:Altered mental status Code:R41.82 Name:Closed head injury Code:S09.90XA Name:Fall at longterm Code:W19.XXXA Dispostion: transferred Time of First Call for Transfer: 04:00[facility]: 04:20Consulting Physician Name: Dr. Miguel Angel M.D.Transfer Accepted: yes ATTESTATION CRITICAL CARE TIMEIs this a critically ill patient?: no Electronic Signatures:Maria A Vance) (Signed 05-Sep-2017 04:43)Authored: Provider Note - ED v2 Last Updated: 05-Sep-2017 04:43 by Maria A Vance) References:1. Data Referenced From "Triage - ED" 09/05/2017 12:33 AM Normal [facility] RED CELL MORPHOLOGYon 2017 HYPOCHROMASIA Mild Normal [facility] Comment on above: Performed By: #### L IPID ####[facility] [place] [address] RBC morphology finding Nom (Bld) See Below Normal [facility] Comment on above: Performed By: #### L IPID ####[facility] [place] [address] TROPONIN Ion 09-05-2017 Troponin I.cardiac mass conc 0.02 ng/mL Normal 0.00 - 0.03 [facility] Comment on above: Result Comment: LESS THAN 0.04 NG/ML: NEGATIVEREPEAT TESTING IN FOUR TO SIX HOURSIF CLINICALLY INDICATED.0.04 - 0.5 NG/ML: CONSISTENT WITH POSSIBLECARDIAC DAMAGE AND POSSIBLE INCREASEDCLINICAL RISK.SERIAL MEASUREMENTS MAY HELP ASSESS EXTENT OFMYOCARDIAL DAMAGE.>0.5 NG/ML: CONSISTENT WITH CARDIAC DAMAGE,INCREASED CLINICAL RISK AND MYOCARDIALINFARCTION. SERIAL MEASUREMENTS MAY HELPASSESS EXTENT OF MYOCARDIAL DAMAGE..Note: Troponin I testing is performed using differenttesting methodology at [facility] than at [facility]. Direct result comparisons should onlybe made within the same method. Performed By: #### T ROP2 ####[facility] [place] [address] Troponin I.cardiac mass conc 0.02 ng/mL Normal 0.00 - 0.03 [facility] Comment on above: Result Comment: LESS THAN 0.04 NG/ML: NEGATIVEREPEAT TESTING IN FOUR TO SIX HOURSIF CLINICALLY INDICATED.0.04 - 0.5 NG/ML: CONSISTENT WITH POSSIBLECARDIAC DAMAGE AND POSSIBLE INCREASEDCLINICAL RISK.SERIAL MEASUREMENTS MAY HELP ASSESS EXTENT OFMYOCARDIAL DAMAGE.>0.5 NG/ML: CONSISTENT WITH CARDIAC DAMAGE,INCREASED CLINICAL RISK AND MYOCARDIALINFARCTION. SERIAL MEASUREMENTS MAY HELPASSESS EXTENT OF MYOCARDIAL DAMAGE..Note: Troponin I testing is performed using differenttesting methodology at [facility] than at [facility]. Direct result comparisons should onlybe made within the same method. Performed By: #### T ROP2 ####[facility] [place] [address] Troponin I.cardiac mass conc 0.02 ng/mL Normal 0.00 - 0.03 [facility] Comment on above: Result Comment: LESS THAN 0.04 NG/ML: NEGATIVEREPEAT TESTING IN FOUR TO SIX HOURSIF CLINICALLY INDICATED.0.04 - 0.5 NG/ML: CONSISTENT WITH POSSIBLECARDIAC DAMAGE AND POSSIBLE INCREASEDCLINICAL RISK.SERIAL MEASUREMENTS MAY HELP ASSESS EXTENT OFMYOCARDIAL DAMAGE.>0.5 NG/ML: CONSISTENT WITH CARDIAC DAMAGE,INCREASED CLINICAL RISK AND MYOCARDIALINFARCTION. SERIAL MEASUREMENTS MAY HELPASSESS EXTENT OF MYOCARDIAL DAMAGE..Note: Troponin I testing is performed using differenttesting methodology at [facility] than at [facility]. Direct result comparisons should onlybe made within the same method. Performed By: #### L IPID ####[facility] [place] [address] Triage - EDon 09-05-2017 Triage - ED Quick Triage:The pat ient and/or guardian verbally acknowledges placement for services intothe following (when Urgent Care Service hours are operating):emergencydepartme nt Pain:Pain Rating (0-10): Rest3 Chart Review: CHIEF COMPLAINT KATHERINE JUDGE is a Female patient with a chief complaint of altered mentalstatus.Onset of the Complaint: 67-Bzv-4831Zjxybi Date/Time: 05-Sep-2017 00:19Vital Signs:Temperature: 97.6F ( 36.4C) taken foreheadBlood Pressure: 148/75 Mean:Heart Rate: 85Respiratory Rate: 20Pulse Oximetry: 94% Height: 5 feet 4.00 inches. 162.5 CMWeight: 120.0 pounds. 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 History: menopausePatient has suicidal thoughts: unable to assessPatient has homicidal thoughts: unable to assessESI: 2 Last Known Well: unknown PAIN Pain Scale Used: SANDOVAL ARRIVAL INFORMATION Means of Arrival: stretcher Mode of Arrival: ambulance Agency: [facility] ArrivalFrom: shelter facility Accompanied By: EMT/paramedicLanguage:Spoken Language Preferred: Belgian Reading Language Preferred: Belgian PRIMARY ASSESSMENT DisabilityDisability/AVPU: KATHERINE is confusedLevel of Consciousness: disoriented to self PAST MEDICAL HISTORY Immunization History:Last Known Tetanus Immunization: Unknown TRAVEL HISTORY Travel Exposure History: NO travel to International locations in the past 30days Past Medical History:? Past Medical History Reviewedyes Electronic Signatures:Nicol Diaz (RN) (Signed 05-Sep-2017 00:56)Authored: Triage, Past Medical History Last Updated: 05-Sep-2017 00:56 by Nicol Diaz (RN) Normal [facility] URINALYSISon 09-05-2017 APPEARANCE CLEAR Normal CLEAR [facility] Comment on above: Performed By: #### L IPID ####[facility] [place] [address] BILIRUBIN Negative Normal NEGATIVE [facility] Comment on above: Performed By: #### L IPID ####[facility] [place] [address] BLOOD Negative Normal NEGATIVE [facility] Comment on above: Performed By: #### L IPID ####[facility] [place] [address] COLOR STRAW Normal STRAW,YELL OW [facility] Comment on above: Performed By: #### L IPID ####[facility] [place] [address] GLUCOSE Negative Normal NEGATIVE [facility] Comment on above: Performed By: #### L IPID ####[facility] [place] [address] KETONES Negative Normal NEGATIVE [facility] Comment on above: Performed By: #### L IPID ####[id number] [place] [address] LEUKOCYTE ESTERASE Negative Normal NEGATIVE [facility] Comment on above: Performed By: #### L IPID ####[facility] [place] [address] NITRITE Negative Normal NEGATIVE [facility] Comment on above: Performed By: #### L IPID ####[id number] [place] [address] pH 6.0 Normal 5.0 - 8.0 [facility] Comment on above: Performed By: #### L IPID ####[id number] [place] [address] Protein mass conc Negative Normal NEGATIVE [facility] Comment on above: Performed By: #### L IPID ####[id number] [place] [address] SPECIFIC GRAVITY 1.005 Normal 1.005 - 1.035 [facility] Comment on above: Performed By: #### L IPID ####[id number] [place] [address] UROBILINOGEN <2.0 Normal 0.0 - 1.9 [facility] Comment on above: Performed By: #### L IPID ####[id number] [place] [address] URINE CULTURE,BACTERIALon URINE CULTURE,BACTERIAL PATIENT: KATHERINE JUDGE LOCATION: [facility] [address]#: [id number] : [birth year] AGE: SEX: F ORDERED BY: LOTUS VANCE: URINE COLLECTED: 09/05/17 01:37ANTIBIOTICS AT ESDRAS.: RECEIVED : 09/05/17 17:28SITE: Straight Cath R E S U L T S URINE CULTURE,BACTERIAL FINAL 09/06/17 09:42 NO GROWTH Normal [facility] Comment on above: Performed By: #### L IPID ####[facility] [place] [address] Daily Progress Note-Infectio us Diseaseon 09-01-2017 Protein mass conc Service: Infectious Disease Subjective Data:KATHERINE JUDGE is a 82 year old Female who is Hospital Day # 7. no fever, no emesis, no diarrhea, no rash. Overnight Events: Patient had an uneventful night. Objective Data: Objective Information:T JLYASyW1Dupeh79.90207076/769 4%Date/Time09/01 4: 4: 4: 4: 4:36Range(36.5C - [...] Last Updated: 01-Sep-2017 11:23 by Nela Collado) [facility] Daily Progress Note-Medicine on 09-01-2017 Protein mass conc Service: Medicine Rick bjective Data:KATHERINE JUDGE is a 82 year old Female who is Hospital Day # 7. Katherine is in doing really well. She is in high spirits, looking forward to bed/c. Her appetite has not picked up yet. Overnight Events: Patient had an uneventful night. Objective Data: Objective Information:T EADIMkP3Irujx66.89662552/769 4%Date/Time09/01 4: 4: 4: 4: 4:36Range(36.5C - 37.7C ) (72 - 83 ) (16 - 18 ) (134 - 150 )/ (60 - 77 ) (94%- 97% )Highest temp of 37.7 C was recorded at 08/31 14:41 Pain at Rest reported at 09/01 9:16: 7 Physical Exam: Constitutional: Frail malnourished elderly woman in [facility]: PERLENMT: mucous membranes moist, no [...] laboratory results: Basic Metabolic Panel Trending View Abyhte90-Arj-8111 08:15:00 30-Aug-2017 05:25:00Glucose, Dpweb349 H 111 QDX401 139K4.0 3.3 RHP275 107Bicarbonate, Serum26 27Anion Gap, Serum9 L 8 LBUN5 L 12HOFFT1.54 0.49 LGFR-Non >60 >60GFR->60 >60Calcium, Serum8.4 L [...] 20:32NSTEMI (non-ST elevated myocardial infarction): Entered Date: 47-Idw-248238:25UTI (urinary tract infection), bacterial: Entered Date: 27-Dec-2016 [...] bowel obstruction: Onset Date: 11-Feb-2012, Entered Date: 88-Lsz-271596:56Generalized abdominal pain (finding): Entered Date: 11-Feb-2012 18:56 [...] ST Elevation Myocardial Infarction (NSTEMI): Entered Date: 44-Bhk-231382:29Coronary angioplasty/stent (PCI): Entered Date: 12-Dec-2009 15:30Dyspnea: Entered [...] No melena or hematochezia. She presented to [facility] and CT of her abdomen and pelvis was read as showing findings consistentwith small bowel obstruction. She was transferred to [facility] forfurther management. We have been consulted [...] plan is to d/c her back to [place] today Nutrition Diagnosis:? Nutrition DiagnosisAgree with dietitian?s [...] Updated: 01-Sep-2017 12:48 by Brionna Llanes) Normal [facility] Daily Progress Note-Samarao n 09-01-2017 Protein mass conc Service: Surgery Sub jective Data:KATHERINE JUDGE is a 82 year old Female who is Hospital Day # 7. Doing well. Urinating and moving bowels, taking miralax daily.Taking PO without problem. Objective Data: Objective Information:T OKKAJhN4Lhkrf44.65720385/769 4%Date/Time09/01 4: 4: 4: 4: 4:36Range(36.5C - [...] 20:32NSTEMI (non-ST elevated myocardial infarction): Entered Date: 97-Kac-372207:25UTI (urinary tract infection), bacterial: Entered Date: 27-Dec-2016 [...] bowel obstruction: Onset Date: 11-Feb-2012, Entered Date: 32-Lgv-982811:56Generalized abdominal pain (finding): Entered Date: 11-Feb-2012 18:56 [...] ST Elevation Myocardial Infarction (NSTEMI): Entered Date: 20-Bsx-779235:29Coronary angioplasty/stent (PCI): Entered Date: 12-Dec-2009 15:30Dyspnea: Entered Date: 12-Dec-2009 12:38Coronary atherosclerosis: Entered Date: 12-Dec-2009 12:38Left heart catheterization: Entered Date: 12-Dec-2009 12:36Hypotension: Entered Date: 09-Sep-2009 15:03Sepsis: Entered Date: 01-Aug-2009 02:21Venous thromboembolism: Entered Date: 31-Jul-2009 14:57 Assessment:Okay for discharge back to [facility].Continue miralax daily.Recommend heating pad to right side to address discomfort. Signature/Cosignature/Attest ation:Attending Only - Shared Visit with Advanced Practice ProviderThis is a sharedvisit. I have reviewed the Advanced Practice Provider?s encounter note,approve the Advanced Practice Provider?s documentation, and provide thefollowing additional information from my personal encounter.Comments/ Additional Findingspartial sbo now resolved Electronic Signatures:Vanessa Rodarte (PROGRAM SUPERVISOR-GRINDER SET UP OPERATOR THREAD TOOL) (Signed 01-Sep-2017 13:31)Authored: Service, Subjective Data, Objective Data, Assessment and Plan,Signature/Cosignature/A ttestationJessenia Tapia) (Signed 01-Sep-2017 16:03)Authored: Signature/Cosignature/Attest ation Last Updated: 01-Sep-2017 16:03 by Jessenia Tapia) [facility] Discharge Qhngdoh8mi 07-24-2 018 Protein mass conc Discharge Orders:Ant icipated Discharge Date:? Anticipated Discharge Nzjj84-Wlj-3752 Problem List: Admitting Dx:? Abdominal pain: Catalog Name: Unspecified abdominal pain Additional Dx:? Essential hypertension: Catalog Name: Essential (primary) hypertension? CAD (coronary artery disease): Catalog Name: Atherosclerotic heart diseaseof [place] coronary artery without angina pectoris? Hypercalcemia: Catalog [...] Significant Events:CABG (2 vessel): Past Surgical History, 76-Vxi-7091Ujspuqh Catheterization: Past Surgical Historycataract: Past Surgical History, bilateral with lens implantappendectomy: Past Surgical History, 26 years agocomplete hysterectomy: Past Surgical History, 26 years agobilat knee replacement: Past Surgical HistoryCongestive Heart Failure (CHF): Past Medical HistoryChronic anemia: Past Medical HistoryVenous thromboembolism: Past Medical HistorySepsis: Past Medical HistoryCoronary atherosclerosis: Past Medical HistoryNon ST elevation [place]: Past Medical History, 83-Veh-8104HIZ: Past Medical HistoryGERD: Past Medical HistoryUTI: Past Medical Historyumbilical hernia: Past Medical Historydiverticulitis: Past Medical Historyosteoporosis: Past Medical Historyanxiety: Past Medical Historydepression: Past Medical Historypost shingles neuropathy: Past Medical Historyhypercholesterolemia: Past Medical Historyherniated disc lumbar area: Past Medical Historyarthritis: Past Medical HistoryHypertension (HTN): Past Medical Historygi bleed: Past Medical Historymitral valve regurgitation: Past Medical Historycolitis: Past Medical HistoryFamily spokesperson: Other, CARLOS [phone] BROTHERPAUL VELOZ [phone] Use: OtherClostridium difficile toxin (C-Diff): Infection Control, 09-Ysl-6205Zzdfahivygk difficile toxin (C-Diff): Infection Control, 27-Aug-2012, ivory ( [facility])Methicillin-Resistant Staph Aureus (MRSA): Infection Control, Mar 2012, sputum.Pneumonia- Pneumococcal polysaccharide vaccine-adult: Immunizations.Influenza- Influenza Virus: Immunizations, 08-Pbe-3359Aqedlns Information: Contacts, dontae Schuler [phone] Hospital Providers:Provider RoleProvider Name? ConsultingVentura Thacker? ConsultingDiego Obregon? ConsultingNela Collado? Benjy Pruitt? AttendingJessenia Tapia DNAR:? DNAR Statusnone Activity:activity as tolerated. May shower. Diet:? Diet Consistency/Texturemechanica l soft Labs 1:? Lab Test(s)CBC? Date To Be Drawn1 week from discharge? Call Results [phone] Dr. Tapia? Fax Results [phone] Dr. Tapia Hospital Course (Home Care/Gold Form):Hospital [...] Therapy Orders:? Physical Therapy OrdersEval and Treat ([facility]) 3-5times/week Provider Follow Up:? Physician To Follow at Skilled/RehabAttending Physician at Skilled/Rehab Provider FINAL REVIEW of Orders:Final Review:? Final Review of Medication Reconciliation and Orders Completedby Physician? Reviewing ProviderJessenia Tapia MD at 01-Sep-2017 16:04:35 Electronic Signatures:Vanessa Rodarte (PROGRAM SUPERVISOR-GRINDER SET UP OPERATOR THREAD TOOL) (Signed 01-Sep-2017 15:55)Authored: Discharge Orders, Hospital Course (Home Care/Gold Form), Gold FormOrders, Provider FINAL REVIEW of Orders, Gold Form - Sheet Combining Operator Jessenia Smart) (Signed 01-Sep-2017 16:04)Authored: Provider FINAL REVIEW of Orders Last Updated: 01-Sep-2017 16:04 by Jessenia Tapia) Normal [facility] HCTon 09-01-2017 Hematocrit Auto Volume Fraction (Bld) Canceled Normal [facility] Comment on above: Order Comment: TEST HCT WAS CANCELLED, 09/01/2017 16:14 PATIENT DISCHARGED. Performed By: #### H CT ####[facility] [id number] [place] [address] HGBon 09-01-2017 Hemoglobin mass conc (Bld) Canceled Normal [facility] Comment on above: Order Comment: TEST HGB WAS CANCELLED, 09/01/2017 16:14 PATIENT DISCHARGED. Performed By: #### H GB ####[facility] [id number] [place] [address] BASIC METABOLIC PANELon 08-10 Anion gap 3 molar conc 9 mmol/L Low 10 - 20 [facility] Comment on above: Performed By: #### B MP ####[facility] [id number] [place] [address] Calcium mass conc 8.4 mg/dL Low 8.6 - 10.3 [facility] Comment on above: Performed By: #### B MP ####[facility] [id number] [place] [address] Chloride molar conc 106 mmol/L Normal 98 - 107 [facility] Comment on above: Performed By: #### B MP ####[facility] [id number] [place] [address] Creatinine mass conc 0.54 mg/dL Normal 0.50 - 1.05 [facility] Comment on above: Performed By: #### B MP ####[facility] [id number] [place] [address] GFR- AM. >60 Normal >60 [facility] Comment on above: Result Comment: CALC ULATIONS OF ESTIMATED GFR ARE PERFORMED USING THE MDRD STUDY EQUATION FOR THE IDMS-TRACEABLE CREATININE METHODS. CLIN CHEM 2007;53:766-72 Performed By: #### B MP ####[facility] [id number] [place] [address] GFR-NON AM. >60 Normal >60 [facility] Comment on above: Performed By: #### B MP ####[facility] [id number] [place] [address] Glucose mass conc 113 mg/dL High 74 - 99 [facility] Comment on above: Performed By: #### B MP ####[facility] [id number] [place] [address] HCO3 molar conc (Bld) 26 mmol/L Normal 21 - 32 [facility] Comment on above: Performed By: #### B MP ####[facility] [id number] [place] [address] Potassium molar conc 4.0 mmol/L Normal 3.5 - 5.3 [facility] Comment on above: Performed By: #### B MP ####[facility] [id number] [place] [address] Sodium molar conc 137 mmol/L Normal 136 - 145 [facility] Comment on above: Performed By: #### B MP ####[facility] [id number] [place] [address] Urea nitrogen mass conc 5 mg/dL Low 6 - 23 [facility] Comment on above: Performed By: #### B MP ####[facility] [id number] [place] [address] Daily Progress Note-Infectio us Diseaseon 08-31-2017 Protein mass conc Service: Infectious Disease Subjective Data:KATHERINE JUDGE is a 82 year old Female who is Hospital Day # 6. no fever, no emesis, no diarrhea, no sob, able to eat. Overnight Events: Patient had an uneventful night. Objective Data: Objective Information:T AHWOIwH2Fgbxp05.51715288/649 5%Date/Time08/31 5: 5: 5: 5: 5:00Range(36.5C - [...] reviewed these laboratory results: Basic Metabolic Panel [Tddqj65-Czi-6331 08:15:00], Basic Metabolic Panel [Drawn 30-Aug-2017 05:25:00],Complete [...] Last Updated: 31-Aug-2017 10:30 by Nela Collado) [facility] Daily Progress Note-Medicine on 08-31-2017 Protein mass conc Service: Medicine Rick bjective Data:KATHERINE JUDGE is a 82 year old Female who is Hospital Day # 6. Katherine is in doing really well. She is in high spirits, looking forward to bed/c. Her appetite has not picked up yet. Overnight Events: Patient had an uneventful night. Objective Data: Objective Information:T RKTVZqC8Jmewm73.90240589/649 5%Date/Time08/31 5: 5: 5: 5: 5:00Range(36.5C - 37.4C ) (61 - 101 ) (18 - 18 ) (146 - 160 )/ (64 - 79 )(95% - 96% )Highest temp of 37.4 C was recorded at 08/30 14:04 Pain at Rest reported at 08/31 10:30: 7 Physical Exam: Constitutional: Frail malnourished elderly woman in [facility]: PERLENMT: mucous membranes moist, no [...] laboratory results: Basic Metabolic Panel Trending View Ferbuh06-Dsy-5881 08:15:00 30-Aug-2017 05:25:00Glucose, Htpqg741 H 111 HVX800 139K4.0 3.3 GSD123 107Bicarbonate, Serum26 27Anion Gap, Serum9 L 8 LBUN5 L 17JJYTX3.54 0.49 LGFR-Non >60 >60GFR->60 >60Calcium, Serum8.4 L 8.1 L Assessment and Plan:Assessment:82-year-old woman with history of multiple abdominal surgeries who was in herusual state of health when she developed nausea later followed by vomiting,abdominal distention and abdominal pain. She denied fever, chills, sweats. Nodiarrhea. No melena or hematochezia. She presented to [facility] and CT of her abdomen and pelvis was read as showing findings consistentwith small bowel obstruction. She was transferred to [facility] forfurther management. We have been consulted [...] plan is to d/c her back to [place] tomorrow. Nutrition Diagnosis:? Nutrition DiagnosisAgree with dietitian?s assessment and diagnoses as stated.Severe protein calorie malnutrition related to inadequate oral intake andunintentional weight loss as evidence by 13% weight loss in 6 months, ptreporting decreased oral intake x several months, muscle/ fat depletion noted,and documented NPO/decreased oral intake x 5 days since admission.. Electronic Signatures:Maria Del Carmen Andino () (Signed 31-Aug-2017 12:51)Authored: Service, Subjective Data, Objective Data, Assessment and Plan,Signature/Cosignature/A ttestation Last Updated: 31-Aug-2017 12:51 by Maria Del Carmen Andino) Normal [facility] Daily Progress Note-Surgeryo n 08-31-2017 Protein mass conc Consult Type: subseq uent visit/care Service: Surgery Subjective Data:KATHERINE JUDGE is a 82 year old Female who is Hospital Day # 6. No voiced c/o. Overnight Events: Patient had an uneventful night. Objective Data: Objective Information:T [id number]/649 5%Date/Time08/31 5: 5: 5: 5: 5:00Range(36.5C - [...] 20:32NSTEMI (non-ST elevated myocardial infarction): Entered Date: 55-Gej-658558:25UTI (urinary tract infection), bacterial: Entered Date: 27-Dec-2016 [...] bowel obstruction: Onset Date: 11-Feb-2012, Entered Date: 72-Lof-295844:56Generalized abdominal pain (finding): Entered Date: 11-Feb-2012 18:56 [...] ST Elevation Myocardial Infarction (NSTEMI): Entered Date: 99-Qhk-289262:29Coronary angioplasty/stent (PCI): Entered Date: 12-Dec-2009 15:30Dyspnea: Entered [...] Findingsadv dietkeep on miralax Electronic Signatures:Vanessa Rodarte (PROGRAM SUPERVISOR-GRINDER SET UP OPERATOR THREAD TOOL) (Signed 31-Aug-2017 10:30)Authored: Service, Subjective Data, Objective Data, Assessment and Plan,Signature/Cosignature/A ttestationJessenia Tapia) (Signed 31-Aug-2017 10:35)Authored: Signature/Cosignature/Attest ation Last Updated: 31-Aug-2017 10:35 by Jessenia Tapia) [facility] Nutrition Therapy-Assessment on 08-31-2017 Nutrition Therapy-Assessment Assessment Subjective/Objective:Note Type: Assessment Note Authored by: Registered Dietitian NutritionistPager Number: [phone] Nutrition Note:The patient is a 82 year [...] bowel obstruction (disorder):Acute bowel obstruction: Onset Date: 84-Jjc-5387Djorqzbnxrd abdominal pain (finding): Chronic:Fluid overload pulmonary edema:Clostridium difficile infection:Chest pain:Diarrhea: Other Dx/Proc:CHEST PAIN: Description: CHEST PAINUnstable angina/chest pain: Description: Unstable angina/chest painGastrointestinal bleeding: Description: Gastrointestinal bleeding1 Colitis, 2 Abdomen Pain 3 Cholelithiasis: Onset Date: 31-Gua-3768Xiirl failure: Description: Heart failurePNEUMONIA:Diabetes mellitus: Description: Diabetes [...] bowel obstruction (disorder):Acute bowel obstruction: Onset Date: 30-Tfk-4484Fonvdoxhtxk abdominal pain (finding):Acute bowel obstruction:Acute bowel obstruction: Objective Information: T VYYENfO0Oxdpc73.33154339/649 5%Date/Time08/31 5: 5: 5: 5: 5:00Range(36.5C - 37.4C ) (61 - 101 ) (18 - 18 ) (146 - 160 )/ (64 - 79 )(95% - 96% )Highest temp of 37.4 C was recorded at 08/30 14:04 Pain at Rest reported at 08/31 10:30: 7 ---- Intake and Output -----Mn/Dy/Year TimeIntakeOutputNetJul 2017 6:00 [id number] 2017 10:00 ik683Ymv 2017 2:00 [id number] The Intake and Output Totals for the last 24 hours are:GixtuhAibcdeHbd1476irszq ull Intake Output Enteral - Oral 360 [...] laboratory results: Basic Metabolic Panel Trending View Phftjj81-Tno-5685 08:15:00 30-Aug-2017 05:25:00Glucose, Nihak826 H 111 AKN924 139K4.0 3.3 PKE955 107Bicarbonate, Serum26 27Anion Gap, Serum9 L 8 LBUN5 L 54UBLML1.54 0.49 LGFR-Non >60 >60GFR->60 >60Calcium, Serum8.4 L 8.1 L Nutrition Labs:Special Chemistry: 03-Jul-2017 10:15, Hemoglobin I6YLvljseebxn A1C, Level5.3 Diagnosis of Diabetes-Adults Non-Diabetic: < or = 5.6% Increased risk for developing diabetes: 5.7-6.4% Diagnostic of diabetes: > or = 6.5%. Monitoring of Diabetes Age (y) Therapeutic Goal (%) Adults: >18 <7.0 Pediatrics: 13-18 <7.5 7-12 <8.0 0- 6 7.5-8.5 [place] [employer]. Diabetes Care 33(S1), Feb 2009.Estimated Average Mftbyet630 Current Active Medications/PN:Ondansetron Injectable, (ZOFRAN)DOSE = 4 mg IntraVenous Push Every 4 Hours, PRN Nausea, 14-Pxl-7471Nbeivjwro 5% TransDermal, Film (LIDODERM)DOSE = 1 patch TransDermal Every 24 Hours, 55-Xng-1065Ndwxkyiris Mononitrate Extended Release, Tablet, Extended Release (IMDUR)DOSE = 60 mg Oral At Bedtime, 81-Rsj-7447Rvdmwhqmvc, Tablet (PRINIVIL, ZESTRIL)DOSE = 10 mg Oral Daily, 90-Bvl-4040Fcywwdlxbj Tartrate, Tablet (LOPRESSOR)DOSE = 50 mg Oral Every 12 Hours, 87-Erl-2124dqvJTAWXP 5 mg - Acetaminophen 325 mg, Tablet (PERCOCET)DOSE = 1 tablet(s) Oral Every 4 Hours, PRN Pain - Severe (7-10), 91-Ikn-1408Dnzzeskjyhrh, Enteric Coated Tablet (PROTONIX)DOSE = 40 mg Oral Daily, 03-Jas-5873Iuksylrkfmpf Glycol, Powder for Reconstitution (MIRALAX)DOSE = 17 gram(s) Oral Daily, 31-Aug-2017 Nutrition Orders:May Participate in Room Service, YesOrder entered from Admission Screens., 25-Kua-5672Bpat Nutritional Supplements, RoutineBoost PuddingFlavor Preference: Vanilla, 2 Times a DaySpecial Instructions: Please send wtih lunch and dinner.AFTERNOON SNACK:Please send pt fresh fruit and cheese for afternoon snack. Thank you!,34-Fdj-7880Kzyk, Mechanical Soft, 31-Aug-2017 Food/Nutrition Related History:Change in [...] output, mealtime behavior, labs Electronic Signatures:Mikie May ([place], [place]) (Signed 31-Aug-2017 11:26)Authored: Assessment Subjective/Objective, Nutrition Focused PhysicalFindings, Estimated Needs, Nutrition Diagnosis, Nutrition Interventions,Nutrition Goals, Nutrition Recommendations, Dietitian Monitoring and EvaluationPlan Last Updated: 31-Aug-2017 11:26 by Mikie May ([place], [place]) Normal [facility] BASIC METABOLIC PANELon 07-2 Anion gap 3 molar conc 8 mmol/L Low 10 - 20 [facility] Comment on above: Performed By: #### B MP ####[facility] [id number] [place] [address] Calcium mass conc 8.1 mg/dL Low 8.6 - 10.3 [facility] Comment on above: Performed By: #### B MP ####[facility] [id number] [place] [address] Chloride molar conc 107 mmol/L Normal 98 - 107 [facility] Comment on above: Performed By: #### B MP ####[facility] [id number] [place] [address] Creatinine mass conc 0.49 mg/dL Low 0.50 - 1.05 [facility] Comment on above: Performed By: #### B MP ####[facility] [id number] [place] [address] GFR- AM. >60 Normal >60 [facility] Comment on above: Result Comment: CALC ULATIONS OF ESTIMATED GFR ARE PERFORMED USING THE MDRD STUDY EQUATION FOR THE IDMS-TRACEABLE CREATININE METHODS. CLIN CHEM 2007;53:766-72 Performed By: #### B MP ####[facility] [id number] [place] [address] GFR-NON AM. >60 Normal >60 [facility] Comment on above: Performed By: #### B MP ####[facility] [id number] [place] [address] Glucose mass conc 111 mg/dL High 74 - 99 [facility] Comment on above: Performed By: #### B MP ####[facility] [id number] [place] [address] HCO3 molar conc (Bld) 27 mmol/L Normal 21 - 32 [facility] Comment on above: Performed By: #### B MP ####[facility] [id number] [place] [address] Potassium molar conc 3.3 mmol/L Low 3.5 - 5.3 [facility] Comment on above: Performed By: #### B MP ####[facility] [id number] [place] [address] Sodium molar conc 139 mmol/L Normal 136 - 145 [facility] Comment on above: Performed By: #### B MP ####[facility] [id number] [place] [address] Urea nitrogen mass conc 14 mg/dL Normal 6 - 23 [facility] Comment on above: Performed By: #### B MP ####[facility] [id number] [place] [address] CBCon 08-30-2017 Erythrocyte distribution width Auto Ratio (RBC) 14.1 % Normal 11.5 - 14.5 [facility] Comment on above: Performed By: #### C BC ####[facility] [id number] [place] [address] Hematocrit Auto Volume Fraction (Bld) 26.5 % Low 36.0 - 46.0 [facility] Comment on above: Performed By: #### C BC ####[facility] [id number] [place] [address] Hemoglobin mass conc (Bld) 8.4 g/dL Low 12.0 - 16.0 [facility] Comment on above: Performed By: #### C BC ####[facility] [id number] [place] [address] MCHC Auto mass conc (RBC) 31.7 g/dL Low 32.0 - 36.0 [facility] Comment on above: Performed By: #### C BC ####[facility] [id number] [place] [address] MCV Auto Entitic volume (RBC) 99 fL Normal 80 - 100 [facility] Comment on above: Performed By: #### C BC ####[facility] [id number] [place] [address] Platelets Auto #/vol (Bld) 272 10*3/uL Normal 150 - 450 [facility] Comment on above: Performed By: #### C BC ####[facility] [id number] [place] [address] RBC Auto #/vol (Bld) 2.67 x10E12/L Low 4.00 - 5.20 [facility] Comment on above: Performed By: #### C BC ####[facility] [id number] [place] [address] WBC Auto #/vol (Bld) 7.8 10*3/uL Normal 4.4 - 11.3 [facility] Comment on above: Performed By: #### C BC ####[id number] [place] [address] Daily Progress Note-Infectio us Diseaseon 08-30-2017 Protein mass conc Service: Infectious Disease Subjective Data:KATHERINE JUDGE is a 82 year old Female who is Hospital Day # 5. no fever, no emesis, no abdominal pain, no diarrhea, no rash. Overnight Events: Patient had an uneventful night. Objective Data: Objective Information:T [id number]/8197% Date/Time08/30 5: 5: 5: 5: 5:01Range(36C - [...] reviewed these laboratory results: Basic Metabolic Panel [Urvts97-[id number] 05:25:00], Complete Blood Count [Drawn 30-Aug-2017 05:25:00],Magnesium, [...] Last Updated: 30-Aug-2017 11:14 by Nela Collado) Normal [facility] Daily Progress Note-Medicine on 08-30-2017 Protein mass conc Service: Medicine Rick bjective Data:KATHERINE JUDGE is a 82 year old Female who is Hospital Day # 5. Started on full liquid diet this morning, had multiple looses BMs. Overnight Events: Patient had an uneventful night. Objective Data: Objective Information:T [id number]/8197% Date/Time08/30 5:017/22 5: 5: 5: 5:01Range(36C - 36.7C ) [...] No melena or hematochezia. She presented to [facility] and CT of her abdomen and pelvis was read as showing findings consistentwith small bowel obstruction. [facility] was [facility] management. We have been consulted [...] 13:18 by Maria Del Carmen Andino) Normal [facility] Daily Progress Note-Melly merino 08-30-2017 Protein mass conc Service: Surgery Sub jective Data:KATHERINE JUDGE is a 82 year old Female who is Hospital Day # 5. Overnight Events: Patient had an uneventful night. Objective Data: Objective Information:T [id number]/8197% Date/Time08/30 5: 5: 5: 5: 5:01Range(36C - [...] 20:32NSTEMI (non-ST elevated myocardial infarction): Entered Date: 65-Qfz-138558:25UTI (urinary tract infection), bacterial: Entered Date: 27-Dec-2016 [...] bowel obstruction: Onset Date: 11-Feb-2012, Entered Date: 73-Peb-193022:56Generalized abdominal pain (finding): Entered Date: 11-Feb-2012 18:56 [...] ST Elevation Myocardial Infarction (NSTEMI): Entered Date: 38-Yzh-247553:29Coronary angioplasty/stent (PCI): Entered Date: 12-Dec-2009 15:30Dyspnea: Entered Date: 12-Dec-2009 12:38Coronary atherosclerosis: Entered Date: 12-Dec-2009 12:38Left heart catheterization: Entered Date: 12-Dec-2009 12:36Hypotension: Entered Date: 09-Sep-2009 15:03Sepsis: Entered Date: 01-Aug-2009 02:21Venous thromboembolism: Entered Date: 31-Jul-2009 14:57 Assessment:improving adv diet slowly Electronic Signatures:Jessenia Tapia) (Signed 30-Aug-2017 11:46)Authored: Service, Subjective Data, Objective Data, Assessment and Plan,Signature/Cosignature/A ttestation Last Updated: 30-Aug-2017 11:46 by Jessenia Tapia) Normal [facility] MAGNESIUMon 08-30-2017 Magnesium mass conc 1.48 mg/dL Low 1.60 - 2.40 [facility] Comment on above: Performed By: #### M G ####[facility] [id number] [place] [address] CBCon 08-29-2017 Erythrocyte distribution width Auto Ratio (RBC) 14.0 % Normal 11.5 - 14.5 [facility] Comment on above: Performed By: #### C BC ####[facility] [id number] [place] [address] Hematocrit Auto Volume Fraction (Bld) 31.5 % Low 36.0 - 46.0 [facility] Comment on above: Performed By: #### C BC ####[facility] [id number] [place] [address] Hemoglobin mass conc (Bld) 10.0 g/dL Low 12.0 - 16.0 [facility] Comment on above: Performed By: #### C BC ####[facility] [id number] [place] [address] MCHC Auto mass conc (RBC) 31.7 g/dL Low 32.0 - 36.0 [facility] Comment on above: Performed By: #### C BC ####[facility] [id number] [place] [address] MCV Auto Entitic volume (RBC) 99 fL Normal 80 - 100 [facility] Comment on above: Performed By: #### C BC ####[facility] [id number] [place] [address] Platelets Auto #/vol (Bld) 338 10*3/uL Normal 150 - 450 [facility] Comment on above: Performed By: #### C BC ####[facility] [id number] [place] [address] RBC Auto #/vol (Bld) 3.18 x10E12/L Low 4.00 - 5.20 [facility] Comment on above: Performed By: #### C BC ####[facility] [id number] [place] [address] WBC Auto #/vol (Bld) 13.1 10*3/uL High 4.4 - 11.3 [facility] Comment on above: Performed By: #### C BC ####[facility] [id number] [place] [address] COMPREHENSIVE PANELon 2017 Albumin mass conc 3.0 g/dL Low 3.4 - 5.0 [facility] Comment on above: Performed By: #### C MP ####[facility] [id number] [place] [address] ALP enzyme act/vol 65 U/L Normal 33 - 136 [facility] Comment on above: Performed By: #### C MP ####[facility] [id number] [place] [address] ALT enzyme act/vol 14 U/L Normal 7 - 45 [facility] Comment on above: Result Comment: Daniel ents treated with Sulfasalazine may generate falsely decreased results for ALT. Performed By: #### C MP ####[facility] [id number] [place] [address] Anion gap 3 molar conc 11 mmol/L Normal 10 - 20 [facility] Comment on above: Performed By: #### C MP ####[facility] [id number] [place] [address] AST enzyme act/vol 16 U/L Normal 9 - 39 [facility] Comment on above: Performed By: #### C MP ####[facility] [id number] [place] [address] Bilirubin mass conc 0.5 mg/dL Normal 0.0 - 1.2 [facility] Comment on above: Performed By: #### C MP ####[facility] [id number] [place] [address] Calcium mass conc 8.7 mg/dL Normal 8.6 - 10.3 [facility] Comment on above: Performed By: #### C MP ####[facility] [id number] [place] [address] Chloride molar conc 105 mmol/L Normal 98 - 107 [facility] Comment on above: Performed By: #### C MP ####[facility] [id number] [place] [address] Creatinine mass conc 0.59 mg/dL Normal 0.50 - 1.05 [facility] Comment on above: Performed By: #### C MP ####[facility] [id number] [place] [address] GFR- AM. >60 Normal >60 [facility] Comment on above: Result Comment: CALC ULATIONS OF ESTIMATED GFR ARE PERFORMED USING THE MDRD STUDY EQUATION FOR THE IDMS-TRACEABLE CREATININE METHODS. CLIN CHEM 2007;53:766-72 Performed By: #### C MP ####[facility] [id number] [place] [address] GFR-NON AM. >60 Normal >60 [facility] Comment on above: Performed By: #### C MP ####[facility] [id number] [place] [address] Glucose mass conc 115 mg/dL High 74 - 99 [facility] Comment on above: Performed By: #### C MP ####[facility] [id number] [place] [address] HCO3 molar conc (Bld) 27 mmol/L Normal 21 - 32 [facility] Comment on above: Performed By: #### C MP ####[facility] [id number] [place] [address] Potassium molar conc 3.8 mmol/L Normal 3.5 - 5.3 [facility] Comment on above: Performed By: #### C MP ####[facility] [id number] [place] [address] Protein mass conc 6.5 g/dL Normal 6.4 - 8.2 [facility] Comment on above: Performed By: #### C MP ####[facility] [id number] [place] [address] Sodium molar conc 139 mmol/L Normal 136 - 145 [facility] Comment on above: Performed By: #### C MP ####[facility] [id number] [place] [address] Urea nitrogen mass conc 43 mg/dL High 6 - 23 [facility] Comment on above: Performed By: #### C MP ####[facility] [id number] [place] [address] Daily Progress Note-Infectio us Diseaseon 08-29-2017 Protein mass conc Service: Infectious Disease Subjective Data:KATHERINE JUDGE is a 82 year old Female who is Hospital Day # 4. no fever, had BM per the nurses, the hx is not reliable. Overnight Events: Patient had an uneventful night. Objective Data: Objective Information:T [id number]/75 95%Date/Time08/29 10: 10: 10: 10: 10:20Range(36.3C - [...] reviewed these laboratory results: Comprehensive Metabolic Panel [[id number] 06:05:00], Complete Blood Count [Drawn 29-Aug-2017 06:05:00],Magnesium, [...] Last Updated: 29-Aug-2017 10:55 by Nela Collado) [facility] Daily Progress Note-Medicine on 08-29-2017 Protein mass conc Service: Medicine Rick bjective Data:KATHERINE JUDGE is a 82 year old Female who is Hospital Day # 4. Still be NPO, has not moved her bowels or had flatus. NG is out.She is more withdrawn today. Did not have a good night sleep. Objective Data: Objective Information:T BLCFNzR2Ekjjj17.22438106/799 4%Date/Time08/29 5: 5: 5: 5: 5:55Range(36.3C - [...] No melena or hematochezia. She presented to [facility] and CT of her abdomen and pelvis was read as showing findings consistentwith small bowel obstruction. She was transferred to [facility] forfurther management. We have been consulted [...] 10:08 by Maria Del Carmen Andino) Normal [facility] Daily Progress Note-Surgeryo n 08-29-2017 Protein mass conc Service: Surgery Sub jective Data:KATHERINE JUDGE is a 82 year old Female who is Hospital Day # 4. Overnight Events: Patient had an uneventful night.Additional Information:pt very sleepy this amshe apparently was up all night and had multiple loose stools over night Objective Data: Objective Information:T WWIWJoG1Sdtbf46.070694393/75 95%Date/Time08/29 10: 10: 10: 10: 10:20Range(36.3C - [...] 20:32NSTEMI (non-ST elevated myocardial infarction): Entered Date: 99-Dhb-549789:25UTI (urinary tract infection), bacterial: Entered Date: 27-Dec-2016 [...] bowel obstruction: Onset Date: 11-Feb-2012, Entered Date: 00-Hos-372451:56Generalized abdominal pain (finding): Entered Date: 11-Feb-2012 18:56 [...] ST Elevation Myocardial Infarction (NSTEMI): Entered Date: 40-Anc-429908:29Coronary angioplasty/stent (PCI): Entered Date: 12-Dec-2009 15:30Dyspnea: Entered Date: 12-Dec-2009 12:38Coronary atherosclerosis: Entered Date: 12-Dec-2009 12:38Left heart catheterization: Entered Date: 12-Dec-2009 12:36Hypotension: Entered Date: 09-Sep-2009 15:03Sepsis: Entered Date: 01-Aug-2009 02:21Venous thromboembolism: Entered Date: 31-Jul-2009 14:57 Assessment:resolving sbodehydrationtry clears Electronic Signatures:Jessenia Tapia) (Signed 29-Aug-2017 12:02)Authored: Service, Subjective Data, Objective Data, Assessment and Plan,Signature/Cosignature/A ttestation Last Updated: 29-Aug-2017 12:02 by Jessenia Tapia) Normal [facility] MAGNESIUMon 08-29-2017 Magnesium mass conc 1.68 mg/dL Normal 1.60 - 2.40 [facility] Comment on above: Performed By: #### M G ####[address] [address] OCCULT BLOOD TEST,STOOLon OCCULT BLOOD,STOOL Positive Abnormal Negative [facility] Comment on above: Performed By: #### O CCB1 ####[facility] [id number] [place] [id number] Daily Progress Note-Infectio us Diseaseon 08-28-2017 Protein mass conc Service: Infectious Disease Subjective Data:KATHERINE JUDGE is a 82 year old Female who is Hospital Day # 3. no fever, no BM, no abdominal hall, no sob, no rash. Overnight Events: Patient had an uneventful night. Objective Data: Objective Information:T [id number]/739 8%Date/Time08/28 7: 7: 7: 7: 7:51Range(36.8C - [...] reviewed these laboratory results: Complete Blood Count [[id number] 06:33:00], Basic Metabolic Panel [Drawn 27-Aug-2017 06:33:00]. [...] Last Updated: 28-Aug-2017 09:04 by Nela Collado) [facility] Daily Progress Note-Medicine on 08-28-2017 Protein mass conc Service: Medicine Rick bjective Data:KATHERINE JUDGE is a 82 year old Female who is Hospital Day # 3. Feeling ok today. Still has NG tube. After a suppository had a small BM. Doesnot pass the flatus. Objective Data: Objective Information:T [id number]/849 3%Date/Time08/28 12: 12: 12: 12: 12:13Range(36.7C - [...] No melena or hematochezia. She presented to [facility] and CT of her abdomen and pelvis was read as showing findings consistentwith small bowel obstruction. She was transferred to [facility] for[facility] management. We have been consulted [...] 12:43 by Maria Del Carmen Andino) Normal [facility] Daily Progress Note-Melly n 08-28-2017 Protein mass conc Service: Surgery Sub jective Data:KATHERINE JUDGE is a 82 year old Female who is Hospital Day # 3. Overnight Events: Patient had an uneventful night.Additional Information:pt had a BM with suppository Objective Data: Objective Information:T VIAUVxG1Hxabk91.73087545/869 2%Date/Time08/28 14: 14: 14: 14: 14:55Range(36.6C - [...] 20:32NSTEMI (non-ST elevated myocardial infarction): Entered Date: 30-Uhg-165155:25UTI (urinary tract infection), bacterial: Entered Date: 27-Dec-2016 [...] bowel obstruction: Onset Date: 11-Feb-2012, Entered Date: 47-Xzn-637362:56Generalized abdominal pain (finding): Entered Date: 11-Feb-2012 18:56 [...] ST Elevation Myocardial Infarction (NSTEMI): Entered Date: 66-Gzn-680549:29Coronary angioplasty/stent (PCI): Entered Date: 12-Dec-2009 15:30Dyspnea: Entered Date: 12-Dec-2009 12:38Coronary atherosclerosis: Entered Date: 12-Dec-2009 12:38Left heart catheterization: Entered Date: 12-Dec-2009 12:36Hypotension: Entered Date: 09-Sep-2009 15:03Sepsis: Entered Date: 01-Aug-2009 02:21Venous thromboembolism: Entered Date: 31-Jul-2009 14:57 Assessment:looks bettertry to d/c ngt later Electronic Signatures:Jessenia Tapia) (Signed 28-Aug-2017 15:04)Authored: Service, Subjective Data, Objective Data, Assessment and Plan,Signature/Cosignature/A ttestation Last Updated: 28-Aug-2017 15:04 by Jessenia Tapia) Normal [facility] ABDOMEN AP VIEWon 08-27-2017 ABDOMEN AP VIEW Name: KATHERINE JUDGE STUDY:TH ABDOMEN AP VIEW; 08/27/2017 9:11 am INDICATION:Signs/Symptoms: abdominal pain with nausea/vomiting. COMPARISON:07/04/2014 ORDERING CLINICIAN:VANESSA RODARTE TECHNIQUE:1 views of the abdomen FINDINGS:NG tube terminates in the gastric body. A no dilated loops of bowel.Mild scattered stool in the colon. IMPRESSION:No dilated loops of bowel.Electronically signed by: BETITO MANN MD Normal [facility] BASIC METABOLIC PANELon 08-09 Anion gap 3 molar conc 11 mmol/L Normal 10 - 20 [facility] Comment on above: Performed By: #### B MP ####[facility] REG [id number] [place] [address] Calcium mass conc 9.0 mg/dL Normal 8.6 - 10.3 [facility] Comment on above: Performed By: #### B MP ####[facility] [id number] [place] [address] Chloride molar conc 97 mmol/L Low 98 - 107 [facility] Comment on above: Performed By: #### B MP ####[facility] [id number] [place] [address] Creatinine mass conc 0.54 mg/dL Normal 0.50 - 1.05 [facility] Comment on above: Performed By: #### B MP ####[facility] [id number] [place] [address] GFR- AM. >60 Normal >60 [facility] Comment on above: Result Comment: CALC ULATIONS OF ESTIMATED GFR ARE PERFORMED USING THE MDRD STUDY EQUATION FOR THE IDMS-TRACEABLE CREATININE METHODS. CLIN CHEM 2007;53:766-72 Performed By: #### B MP ####[facility] [id number] [place] [address] GFR-NON AM. >60 Normal >60 [facility] Comment on above: Performed By: #### B MP ####[facility] [id number] [place] [address] Glucose mass conc 132 mg/dL High 74 - 99 [facility] Comment on above: Performed By: #### B MP ####[facility] [id number] [place] [address] HCO3 molar conc (Bld) 38 mmol/L High 21 - 32 [facility] Comment on above: Performed By: #### B MP ####[facility] [id number] [place] [address] Potassium molar conc 3.2 mmol/L Low 3.5 - 5.3 [facility] Comment on above: Performed By: #### B MP ####[facility] [id number] [place] [address] Sodium molar conc 143 mmol/L Normal 136 - 145 [facility] Comment on above: Performed By: #### B MP ####[facility] [id number] [place] [address] Urea nitrogen mass conc 9 mg/dL Normal 6 - 23 [facility] Comment on above: Performed By: #### B MP ####[facility] [id number] [place] [address] CBCon 08-27-2017 Erythrocyte distribution width Auto Ratio (RBC) 14.2 % Normal 11.5 - 14.5 [facility] Comment on above: Performed By: #### C BC ####[facility] [id number] [place] [address] Hematocrit Auto Volume Fraction (Bld) 36.2 % Normal 36.0 - 46.0 [facility] Comment on above: Performed By: #### C BC ####[facility] [id number] [facility] [place] [address] Hemoglobin mass conc (Bld) 11.7 g/dL Low 12.0 - 16.0 [facility] Comment on above: Performed By: #### C BC ####[facility] [id number] [place] [address] MCHC Auto mass conc (RBC) 32.3 g/dL Normal 32.0 - 36.0 [facility] Comment on above: Performed By: #### C BC ####[facility] [id number] [place] [address] MCV Auto Entitic volume (RBC) 98 fL Normal 80 - 100 [facility] Comment on above: Performed By: #### C BC ####[id number] [place] [address] Platelets Auto #/vol (Bld) 323 10*3/uL Normal 150 - 450 [facility] Comment on above: Performed By: #### C BC ####[facility] [place] [address] RBC Auto #/vol (Bld) 3.70 x10E12/L Low 4.00 - 5.20 [facility] Comment on above: Performed By: #### C BC ####[facility] [place] [address] WBC Auto #/vol (Bld) 10.5 10*3/uL Normal 4.4 - 11.3 [facility] Comment on above: Performed By: #### C BC ####[facility] [id number] [place] [address] Daily Progress Note-Cardioemory esteves 08-27-2017 Protein mass conc Consult Type: subseq uent visit/care Service: Cardiology Subjective Data:KATHERINE JUDGE is a 82 year old Female who is Hospital Day # 2. Just returned from [facility], states she feels a little better today, [...] an uneventful night. Objective Data: Objective Information:T AXMSZaQ0Zhoix09.22061400/789 7%Date/Time08/27 14: 14: 14: 14: 14:57Range(36.7C - [...] contusions or wounds, noclubbingNeurological: alert and oriented e9Jwhmewnrupkwy: Appropriate mood and behaviorSkin: [place], fair turgor, Warm and dry, no lesions, [...] 20:32NSTEMI (non-ST elevated myocardial infarction): Entered Date: 69-Zsr-532130:25UTI (urinary tract infection), bacterial: Entered Date: 27-Dec-2016 [...] bowel obstruction: Onset Date: 11-Feb-2012, Entered Date: 66-Wbs-994652:56Generalized abdominal pain (finding): Entered Date: 11-Feb-2012 18:56 [...] ST Elevation Myocardial Infarction (NSTEMI): Entered Date: 89-Vmw-219554:29Coronary angioplasty/stent (PCI): Entered Date: 12-Dec-2009 15:30Dyspnea: Entered [...] Objective Data, Assessment and Plan,Signature/Cosignature/A ttestationApril Nam (PROGRAM SUPERVISOR-GRINDER SET UP OPERATOR THREAD TOOL) (Signed 27-Aug-2017 15:41)Authored: Service, Subjective Data, Objective Data, Assessment and Plan,Signature/Cosignature/A ttestation Last Updated: 28-Aug-2017 06:59 by Ventura Thacker) Normal [facility] Daily Progress Note-Infectio us Diseaseon 08-27-2017 Protein mass conc Service: Infectious Disease Subjective Data:KATHERINE JUDGE is a 82 year old Female who is Hospital Day # 2. no fever, nauseated, abdominal pain, no emesis, no diarrhea. Overnight Events: Patient had an uneventful night. Objective Data: Objective Information:T FDIZVzZ1Scysd54.06759192/539 7%Date/Time08/27 6: 6: 6: 6: 6:42Range(36.7C - [...] reviewed these laboratory results: Complete Blood Count [Ilvrk49-Lsx-8854 06:33:00], Basic Metabolic Panel [Drawn 27-Aug-2017 06:33:00],Magnesium, Serum [Drawn 27-Aug-2017 06:33:00], Urinalysis [Drawn 42-Rjk-302371:47:00], Urinalysis, Microscopic [Drawn 25-Aug-2017 18:47:00], Lactate, Level[Drawn [...] Updated: 27-Aug-2017 09:31 by Nela Collado) Normal [facility] Daily Progress Note-Medicine on 08-27-2017 Protein mass conc Service: Medicine Rick bjective Data:KATHERINE JUDGE is a 82 year old Female who is Hospital Day # 2. Reports feeling better today, less abdominal distension after NG was placed. Noflatus yet. Overnight Events: Patient had an uneventful night. Objective Data: Objective Information:T [id number]/6597% Date/Time08/27 11: 11: 6: 11: 11:11Range(36.7C - [...] No melena or hematochezia. She presented to [facility] and CT of her abdomen and pelvis was read as showing findings consistentwith small bowel obstruction. She was transferred to [facility] forfurther management. We have been consulted [...] 12:54 by Maria Del Carmen Andino) Normal [facility] Daily Progress Note-Samarao n 08-27-2017 Protein mass conc Service: Surgery Sub jective Data:KATHERINE JUDGE is a 82 year old Female who is Hospital Day # 2. Additional Information:no flatus yet Objective Data: Objective Information:T NVHFUcS8Qotnz47.48707533/539 7%Date/Time08/27 6: 6: 6: 6: 6:42Range(36.7C - [...] 20:32NSTEMI (non-ST elevated myocardial infarction): Entered Date: 66-Ikv-544549:25UTI (urinary tract infection), bacterial: Entered Date: 27-Dec-2016 [...] bowel obstruction: Onset Date: 11-Feb-2012, Entered Date: 80-Hhh-271445:56Generalized abdominal pain (finding): Entered Date: 11-Feb-2012 18:56 [...] ST Elevation Myocardial Infarction (NSTEMI): Entered Date: 75-Sad-353387:29Coronary angioplasty/stent (PCI): Entered Date: 12-Dec-2009 15:30Dyspnea: Entered [...] Updated: 27-Aug-2017 09:36 by Jessenia Tapia) Normal [facility] EMR ADDONon 08-27-2017 ADDON CONFIRMATION REQUEST REC'D Normal [facility] Comment on above: Performed By: #### E MRAD ####[facility] [id number] [place] [address] MAGNESIUMon 08-27-2017 Magnesium mass conc 1.95 mg/dL Normal 1.60 - 2.40 [facility] Comment on above: Performed By: #### M G ####[facility] [place] [address] Admission Risk Screen - Adul ton 08-26-2017 [...] for Verficationyes? ID Band MRN Matches EMR MRMatthieu Advance Directive:? Advance Directive Medicalyes? Advance Directive typeDurable Power of Automotive Refinisher for Healthcare? Durable Power of Automotive Refinisher AvailabilityDPOA not available now? Durable Power of Automotive Refinisher [id number]? Durable Power of Automotive Refinisher contact (name and number)Ganga Judge? Advance Directive [...] instruction; written material? Cultural Considerationsnone? Developmental Considerationsnone? Christianity Considerationsnone Learning Assessment (Other Learner):? Other learner [...] Spiritual Screen:? Are there any cultural, spiritual, catholic practices/values/needs that areimportant for us to know?no CAGE:Is this an injured patient at a Tra[place] Center [place] [place] no Vaccinations:Vaccination - Influenza Vaccination Screen:? Is [...] Injury Present on Admissionno Electronic Signatures:Sylvain Gilbert (CINTHYA) (Signed 26-Aug-2017 04:19)Authored: Admission Risk Screens, Vaccinations, Moustapha, Pressure Injury Last Updated: 26-Aug-2017 04:19 by Sylvain Gilbert (CINTHYA) Normal [facility] CHEST 1 VIEWon 08-26-2017 CHEST 1 [...] hernia.Electronically signed by: NYLA PARKER DO Normal [facility] CHEST 1 VIEW Name: KATHERINE JUDGE [...] Electronically signed by: LEANN PATEL MD Normal [facility] CHEST 1 VIEW Name: KATHERINE JUDGE [...] disease.Electronically signed by: LEANN PATEL MD Normal [facility] Consult-Cardiologyon 018 Consult-Cardiology Service:Service: Car diology Consult:Reason: preop clearance HTN History of Present Illness:HPI:This is an 82-year-old female with history of multiple abdominalsurgeries, 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 Ptreadmitted to [facility] weeks ago with FTT, nausea, dehydration, and RADHA.Discharged to SNF. [facility] yesterday developed abdominal discomfort andvomiting. Appetite not as goo yesterday. [facility] has had daily BM's. Statesabd. discomfort and distention.Denies CP, fever, chills, no abd blood in stools. Sent to [facility], CT ofher abdomen and pelvis was read as showing findings consistent with small bowelobstruction. She was transferred to [facility] for furthermanagement.Pt is known to me, [...] Confusion? Restoril: Confusion Objective: Objective Information: T UGBMKuQ8Lcoso883018667/6996% Date/Time08/26 16:25718 16:29718 5:0818 16:18 16:29Range(36C - 37.8C ) (78 - 95 ) (16 - 16 ) (146 - 185 )/ (69 - 96 ) (85% -96% )Highest temp of 37.8 C was recorded at 08/26 14:18 Weights08/26 4:19: Weight in kg (Weight (kg)) 40.67/18 4:19: Weight in lbs ((lbs)) 89.67/18 4:19: BMI (kg/m2) (BMI (kg/m2)) 17.48 Pain [...] andreflexes, normal strengthPsychological: Appropriate mood and behaviorSkin: [place], fair turgor, Warm and dry, no lesions, [...] Urine YELLOW Reference Range: STRAW,YELLOWAppearance, Urine HAZYSpecific [place]obbins, Urine 1.013pH, Urine 6.0Protein, Urine NEGATIVEGlucose, Urine [...] 22.2 cm2LA Area A2C: 19.3 cm2LA [place] A4C: 5.9 cmLA [place] A2C: 5.4 cmLA Volume Index: 40.5 ml/m2RA VOLUME BY A/L METHOD: Normal Ranges:RA Vol A4C: 17.8 ml (8.3-19.5ml)RA Vol Index A4C: 11.5 ml/m2RA Area A4C: 9.6 cm2RA [place] A4C: 4.4 cmM-MODE MEASUREMENTS: Normal Ranges:Ao Root: [...] amount drg.Possible need for ORprevious records from [facility] obtained and reviewedOffice records obtained and reviewed. [...] Updated: 26-Aug-2017 18:16 by Ventura Thacker) Normal [facility] Consult-Infectious Diseaseon 08-26-2017 Consult-Infectious Disease Service:Service: [...] bowel obstruction (disorder):Acute bowel obstruction: Onset Date: 84-Nws-6073Dzaydvebvmb abdominal pain (finding):Acute bowel obstruction:Acute bowel obstruction: [...] Confusion? Restoril: Confusion Objective: Objective Information: T [id number]/9390% Date/Time08/26 5: 5: 5: 5: 5:08Range(36C - [...] have reviewed these laboratory results: Urinalysis [Drawn 49-Nww-627381:47:00], Urinalysis, Microscopic [Drawn 25-Aug-2017 18:47:00], Lactate, Level[Drawn 25-Aug-2017 18:46:00], Comprehensive Metabolic Panel [Drawn 37-Atp-547105:36:00], Lipase, Serum [Drawn 25-Aug-2017 18:36:00], Troponin I, Serum [[id number]-Mcy-7297 18:36:00], Complete Blood Count + Differential [Drawn 88-Zjn-924494:15:00], Basic Metabolic Panel [Drawn 21-Aug-2017 16:22:00], Complete [...] Last Updated: 26-Aug-2017 09:12 by Nela Collado) Normal [facility] Consult-Medicineon 8 Consult-Medicine Service:Service: Med icine [...] with small bowelobstruction. She was transferred to [facility] for furthermanagement. We have been consulted [...] bowel obstruction (disorder):Acute bowel obstruction: Onset Date: 38-Frp-6015Bjqxfruhuca abdominal pain (finding):Acute bowel obstruction: Review Family/Social [...] Ativan: Confusion? Restoril: Confusion Objective: Objective Information:T AWJMFzG8Lempv84.73093652/959 0%Date/Time08/26 4: 4: 4: 4: 4:19Range(36.6C - [...] Urine YELLOW Reference Range: STRAW,YELLOWAppearance, Urine HAZYSpecific [place]obb[place], Urine 1.013pH, Urine 6.0Protein, Urine NEGATIVEGlucose, Urine [...] Updated: 26-Aug-2017 09:58 by Diego Obregon) Normal [facility] Discharge Planning Noteon Discharge Planning Note Discharge Needs Assessment:? Discharge Planning Assessment Iqvt11-Hrt-3159? Readmission Within the Last 30 Dayscurrent reason for admission unrelated toprevious admission? Primary Care Physician Hugo Adult Information:? Reason for Admission as Stated by Patientsbo? Primary Support Person During HospitalizationCarlos [phone]? Lives Withspouse? Financial Concernsnone Patient Learning:? Factors that Impact Ability to Learnnone(1) Other Factors:? Functional Screen: In the recent/past 2-4 weeks, patient or family havenoticedno issues that require a rehabilitation consult at this time(2) Discharge Planning:Discharge Plannin08/26/17 A&OX3. Lives with spouse, but recovering at [facility] afterbowel surgery. Normally active in ADL, but very weak after surgery. Hxmultiple abd surgeries. N/G light green returns. NPO, has been N&V be foreadmit. Plan return to SNF when medically cleared. Discussed patient plan ofcare and discharge plans during interdisciplinary rounds. Meghan Haro RN- 08/27/17 1022 DSC: Referral sent to [facility]. SNF/Return. ADOD iswithin 2 days. Medicare ins. Awaiting facility response. Yaneth Jordan,Discharge Procurement Intern - [phone] 08/27/17 1213 DSC: Response received from the following skilled nursingfacilities: [facility] can accept the patient. Yaneth Jordan, DischargeSupport Coordinator - [phone] 08/27/17 N/G, NPO. for KUB today. Does have 55 days left of snf benefit.[facility] able to accept pt when she is medically ready. Will follow ptthrough hospital stay and adjust plan as needed. Discussed patient plan ofcare and discharge plans during interdisciplinary rounds. Meghan Haro RN-BC 08/28/17 1241 DSC: I attached updates for the facility to review. Clark Discharge Procurement Intern - [phone] 08/29/17 1011 DSC_ Updates attached to the facility for reviewEmilia Brand, Discharge Procurement Intern, 08/31/17 0919 DSC: Updates attached to the facility for review. Olga Aguerorge Procurement Intern [phone] 08/31/17 Should be ready for d/c tomorrow. Diet full liquid and will advance.Will follow pt through hospital stay and adjust plan as needed. Discussedpatient plan of care and discharge plans during interdisciplinary rounds. Virginia MENDES-JANAY 09/01/17 1456 DSC: Final orders attached and sent to facility. No 7000 needed.Olga Lehman Discharge Procurement Intern [phone] 09/01/17 1456 PCN: [employer] General Supervisor/Paper Steamer notified transport set [id number] potato picker, via stretcher with [facility] providing transport.Keyana Haro, Corporate Treasury Analyst, Final Disposition/Discharge:Dispos ition/Discharge Information: Discharge/Transfer Information:? Discharge/Transfer Date/Jqmd98-Zwo-1532 15:53? Discharge Modestretcher? Transportation Methodtransportation service? Valuables/Medications/Belong [...] Screen - Adult" 08/26/2017 04:14 AM Normal [facility] History and Physicalon 08-26 History and Physical History of Present Illness:Admission Reason: SBOHPI:82 y.o. WF who had been in her usual state of health until about no, when she developed nausea, followed by vomiting, distention andabdominal pain. No reports of fever or chills. No c/o diarrhea, melena orhematochezia. She initially present to [facility]. Underwent CT of abdomen pelvis that showed findings consistent with SBO. Transferred to [facility] for further management, and admitted to [...] bowel obstruction (disorder):Acute bowel obstruction: Onset Date: 96-Yhx-5245Sqslt bowel obstruction:Acute bowel obstruction:Generalized abdominal pain (finding): [...] Pruritus, Rash, Ulcer Objective: Objective Information: T OCOKRwO3Dgraa209409277/9390% Date/Time08/26 5: 5: 5:0818 5:0818 5:08Range(36C - 36.6C ) (84 - 88 ) (16 - 16 ) (183 - 185 )/ (93 - 95 ) (90% -90% ) Physical Exam: Constitutional: frail, elderly female. NAD. Alert and oriented.Eyes: PERRL, EOMI, clear scleraENMT: mucous membranes moist, no apparent injury, no lesions seen NG tube placed without difficulty via left nare. Immediately returned approx.200ml green bile drainage. To [facility].Respiratory/Thorax: LCTA. non-labored.Cardiovascular: Heart RRRGastrointestinal: softly distended. Tender. [...] Urine YELLOW Reference Range: STRAW,YELLOWAppearance, Urine HAZYSpecific [place]obb[place], Urine 1.013pH, Urine 6.0Protein, Urine NEGATIVEGlucose, Urine [...] 16:22:00 ResultValueLab Comment: Drop off AHA, Phleb Anngeasa #[id number] 08/21/2017 psteiGlucose, Serum 108 HNA 139K 4.2CL 101Bicarbonate, Serum 29Anion Gap, Serum 13BUN 17CREAT 0.90GFR-Non 60 AGFR- 73Calcium, Serum 9.3 Complete Blood Count 21-Aug-2017 16:22:00 ResultValueLab Comment: Drop off AHA, PhlebDayday #3959 08/21/2017 psteiWhite Blood Cell Count 8.2Red [...] bowel obstruction (disorder):Acute bowel obstruction: Onset Date: 95-Qyb-1872Wxmsbyiqzvt abdominal pain (finding): Chronic:Fluid overload pulmonary edema:Clostridium difficile infection:Chest pain:Diarrhea: Other Dx/Proc:CHEST PAIN: Description: CHEST PAINUnstable angina/chest pain: Description: Unstable angina/chest painGastrointestinal bleeding: Description: Gastrointestinal bleeding1 Colitis, 2 Abdomen Pain 3 Cholelithiasis: Onset Date: 21-Rge-2492Tlqvb failure: Description: Heart failurePNEUMONIA:Diabetes mellitus: Description: Diabetes [...] care, and discharge plan. Electronic Signatures:Vanessa Rodarte (PROGRAM SUPERVISOR-GRINDER SET UP OPERATOR THREAD TOOL) (Signed 26-Aug-2017 12:20)Authored: History of Present Illness, Comorbidities, Past Medical/SurgicalHistory, Social History, Allergies, Review of Systems, Objective, Assessmentand Plan, Signatures/Attestation/Certi ficationMaJessenia vasquez) (Signed 26-Aug-2017 14:08)Authored: Signatures/Attestation/Certi fication Last Updated: 26-Aug-2017 14:08 by Jessenia Tapia) [facility] Patient Profile - Adult v2on 08-26-2017 Protein mass conc Profile:Initial Info :How to be AddressedAliceSpoken Language PreferredEnglish (1)Are you currently using the Personal Electronic Health Record or QCoefficientGT SolarnoAre you interested in learning more about [facility] for the management of yourhealthyes, information providedStated Reason for AdmissionAbdominal pain and nausea, got worseArrived Fromemergency departmentPatient BelongingsnoneMedications Brought to [facility] General Health:Weight in kg40.6 kilogram(s)Weight in lbs89.6 pound(s)Height in feet5 feetHeight in inches0 inch(es)Height in cm152.4 centimeter(s)BMI (kg/m2)17.48 square meterWeight Methodactual (measured)Scale TypebedHeight Methodstated [facility] Based Care:How would you like to participate [...] Last Updated: 26-Aug-2017 04:24 by Sylvain Gilbert (RN) References:1. Data Referenced From "Patient Profile - Adult v2" 07/26/2017 5:00 PM Normal [facility] CBC AND DIFFERENTIALon 08-25 % AUTOMATED IMMATURE GRAN 0.6 % Normal 0.0 - 0.9 [facility] Comment on above: Result Comment: Perc ent differential counts (%) should be interpreted in the context of the absolute cell counts (cells/L). Performed By: #### L IPID ####[address] [address] % NEUTROPHIL 72.1 % Normal 40.0 - 80.0 [facility] Comment on above: Performed By: #### L IPID ####[address] [address] Basophils/100 WBC Auto (Bld) 0.4 % Normal 0.0 - 2.0 [facility] Comment on above: Performed By: #### L IPID ####[address] [address] Basophils/100 WBC Auto (Bld) 0.03 x10E9/L Normal 0.00 - 0.10 [facility] Comment on above: Performed By: #### L IPID ####[address] [address] Eosinophils Auto #/vol (Bld) 0.02 10*3/uL Normal 0.00 - 0.40 [facility] Comment on above: Performed By: #### L IPID ####[address] [address] Eosinophils/100 WBC Auto (Bld) 0.2 % Normal 0.0 - 6.0 [facility] Comment on above: Performed By: #### L IPID ####[address] [address] Erythrocyte distribution width Auto Ratio (RBC) 14.3 % Normal 11.5 - 14.5 [facility] Comment on above: Performed By: #### L IPID ####[address] [address] Hematocrit Auto Volume Fraction (Bld) 44.9 % Normal 36.0 - 46.0 [facility] Comment on above: Performed By: #### L IPID ####[address] [address] Hemoglobin mass conc (Bld) 15.0 g/dL Normal 12.0 - 16.0 [facility] Comment on above: Performed By: #### L IPID ####[address] [address] Lymphocytes Auto #/vol (Bld) 1.89 10*3/uL Normal 0.80 - 3.00 [facility] Comment on above: Performed By: #### L IPID ####[address] [address] Lymphocytes/100 WBC Auto (Bld) 22.5 % Normal 13.0 - 44.0 [facility] Comment on above: Performed By: #### L IPID ####[address] [address] MCHC Auto mass conc (RBC) 33.4 g/dL Normal 32.0 - 36.0 [facility] Comment on above: Performed By: #### L IPID ####[address] [address] MCV Auto Entitic volume (RBC) 97 fL Normal 80 - 100 [facility] Comment on above: Performed By: #### L IPID ####[address] [address] Monocytes Auto #/vol (Bld) 0.35 10*3/uL Normal 0.05 - 0.80 [facility] Comment on above: Performed By: #### L IPID ####[address] [address] Monocytes/100 WBC Auto (Bld) 4.2 % Normal 2.0 - 10.0 [facility] Comment on above: Performed By: #### L IPID ####[address] [address] Neutrophils Auto #/vol (Bld) 6.07 10*3/uL High 1.60 - 5.50 [facility] Comment on above: Performed By: #### L IPID ####[id number] [place] [address] Platelets Auto #/vol (Bld) 355 10*3/uL Normal 150 - 450 [facility] Comment on above: Performed By: #### L IPID ####[address] [address] RBC Auto #/vol (Bld) 4.64 x10E12/L Normal 4.00 - 5.20 [facility] Comment on above: Performed By: #### L IPID ####[address] [address] WBC Auto #/vol (Bld) 8.4 10*3/uL Normal 4.4 - 11.3 [facility] Comment on above: Performed By: #### L IPID ####[address] [address] COMPREHENSIVE PANELon 2017 Albumin mass conc 3.7 g/dL Normal 3.4 - 5.0 [facility] Comment on above: Performed By: #### L IPID ####[address] [address] ALP enzyme act/vol 75 U/L Normal 33 - 136 [facility] Comment on above: Performed By: #### L IPID ####[address] [address] ALT enzyme act/vol 16 U/L Normal 7 - 45 [facility] Comment on above: Result Comment: Daniel ents treated with Sulfasalazine may generate falsely decreased results for ALT. Performed By: #### L IPID ####[address] [address] Anion gap 3 molar conc 17 mmol/L Normal 10 - 20 [facility] Comment on above: Performed By: #### L IPID ####[address] [address] AST enzyme act/vol 19 U/L Normal 9 - 39 [facility] Comment on above: Performed By: #### L IPID ####[id number] [place] [address] Bilirubin mass conc 0.6 mg/dL Normal 0.0 - 1.2 [facility] Comment on above: Performed By: #### L IPID ####[address] [address] Calcium mass conc 10.3 mg/dL Normal 8.6 - 10.3 [facility] Comment on above: Performed By: #### L IPID ####[address] [address] Chloride molar conc 99 mmol/L Normal 98 - 107 [facility] Comment on above: Performed By: #### L IPID ####[address] [address] Creatinine mass conc 0.91 mg/dL Normal 0.50 - 1.05 [facility] Comment on above: Performed By: #### L IPID ####[address] [address] GFR- AM. 71 mL/min/1.73m2 Normal >60 [facility] Comment on above: Result Comment: CALC ULATIONS OF ESTIMATED GFR ARE PERFORMED USING THE MDRD STUDY EQUATION FOR THE IDMS-TRACEABLE CREATININE METHODS. CLIN CHEM 2007;53:766-72 Performed By: #### L IPID ####[address] [address] GFR-NON AM. 59 mL/min/1.73m2 Abnormal >60 [facility] Comment on above: Performed By: #### L IPID ####[address] [place] [address] Glucose mass conc 125 mg/dL High 74 - 99 [facility] Comment on above: Performed By: #### L IPID ####[address] [address] HCO3 molar conc (Bld) 28 mmol/L Normal 21 - 32 [facility] Comment on above: Performed By: #### L IPID ####[address] [address] Potassium molar conc 3.9 mmol/L Normal 3.5 - 5.3 [facility] Comment on above: Performed By: #### L IPID ####[facility] [place] [address] Protein mass conc 8.3 g/dL High 6.4 - 8.2 [facility] Comment on above: Performed By: #### L IPID ####[address] [place] [address] Sodium molar conc 140 mmol/L Normal 136 - 145 [facility] Comment on above: Performed By: #### L IPID ####[address] [place] [address] Urea nitrogen mass conc 14 mg/dL Normal 6 - 23 [facility] Comment on above: Performed By: #### L IPID ####[address] [place] [address] CT ABDOMEN AND PELVIS WITH C ONTRASTon 08-25-2017 CT ABDOMEN AND PELVIS WITH CONTRAST Name: NUKATHERINE STUDY:CT ABDOMEN AND PELVIS WITH CONTRAST; 08/25/2017 [...] Electronically signed by: LEANN PATEL MD Normal [facility] LACTATEon 08-25-2017 Lactate molar conc 0.8 mmol/L Normal 0.4 - 2.0 [facility] Comment on above: Result Comment: Hali puncture immediately after or during the administration of Metamizole may lead to falsely low results. Testing should be performed immediately prior to Metamizole dosing. Performed By: #### L IPID ####[facility] [place] [address] LIPASEon 08-25-2017 Lipase enzyme act/vol 51 U/L Normal 9 - 82 [facility] Comment on above: Result Comment: Hali puncture immediately after or during the administration of Metamizole may lead to falsely low results. Testing should be performed immediately prior to Metamizole dosing. Performed By: #### L IPID ####[facility] [place] [address] Provider Note - EDon 018 Protein mass conc Time Seen:? Time [id number]-[id number] 17:58 Triage Vital Signs:? Triage Information Most [...] Signs:? Objective Information T PRBP SpO2O2(LPM) %FiO2 Immwfp24-Uow-7914 18:06:[id number]/81 95 room air, no respiratorysupport Review of [...] DISCHARGE DISPOSITION:? Disposition: transferred? Facility Name (1): [place]? Name of 1st Consulting Physician: Willie? Was [...] "Triage - ED" 08/25/2017 6:06 PM Normal [facility] Risk Screen - Adult Emergenc yon 08-25-2017 Risk Screen - Adult Emergency Preferred Language:Preferred Language:? Preferred Language for Discussing Health Care (patient/designee)Belgian Advanced Directives:? Advance Directive Medicalno Family Violence [...] Learning Preferencesindividual instruction? Cultural Considerationsnone? Developmental Considerationsnone? Christianity Considerationsnone Learning Assessment (Other Learner):Learning Assessment (Other [...] an injured patient [place] a [place] [place] no Electronic Signatures:Mora Owens (RN) (Signed 25-Aug-2017 19:06)Authored: Preferred Language, Advanced Directives, Family Violence Adult,Suicide / Depression, Learning Assessment (Patient), Learning Assessment (OtherLearner), Fall Risk Adult, Pressure Injury, Respiratory / Cough /TB,Smoking/Social History (Required age 13 or older), CAGE Last Updated: 25-Aug-2017 19:06 by Mora Owens (RN) Normal [facility] TROPONIN Ion 08-25-2017 Troponin I.cardiac mass conc ng/mL Normal 0.00 - 0.03 [facility] Comment on above: Result Comment: LESS THAN 0.04 NG/ML: NEGATIVEREPEAT TESTING IN FOUR TO SIX HOURSIF CLINICALLY INDICATED.0.04 - 0.5 NG/ML: CONSISTENT WITH POSSIBLECARDIAC DAMAGE AND POSSIBLE INCREASEDCLINICAL RISK.SERIAL MEASUREMENTS MAY HELP ASSESS EXTENT OFMYOCARDIAL DAMAGE.>0.5 NG/ML: CONSISTENT WITH CARDIAC DAMAGE,INCREASED CLINICAL RISK AND MYOCARDIALINFARCTION. SERIAL MEASUREMENTS MAY HELPASSESS EXTENT OF MYOCARDIAL DAMAGE..Note: Troponin I testing is performed using differenttesting methodology [facility]. Direct result comparisons should onlybe made within the same method. Performed By: #### L IPID ####[facility] [place] [address] Triage - EDon 08-25-2017 INR Coag RelTime (Bld) Pain:Pain Rating (0-10): Rest4 Chart Review:CHIEF COMPLAINT KATHERINE JUDGE is a Female patient with a chief complaint of abdominal pain.Onset of the Complaint: [id number] Date/Time: 25-Aug-2017 17:59Pain Rating (0-10): Rest: 4Vital [...] 18:08 by Obdulia Perea (RN PRN) Normal [facility] UA MICROSCOPICon 08-25-2017 CA OXALATE CRYSTAL 1+ /HPF Normal [facility] Comment on above: Performed By: #### L IPID ####[address] [place] [address] HYALINE CAST 1+ /LPF Abnormal [facility] Comment on above: Performed By: #### L IPID ####[address] [place] [address] MUCUS FEW Normal [facility] Comment on above: Performed By: #### L IPID ####[facility] [place] [address] RBC 3 /HPF Abnormal 0-5 [facility] Comment on above: Performed By: #### L IPID ####[address] [place] [address] SQUAMOUS EPITH. CELLS 1 /HPF Normal [facility] Comment on above: Performed By: #### L IPID ####[address] [place] [address] WBC 4 /HPF Abnormal 0-5 [facility] Comment on above: Performed By: #### L IPID ####[address] [place] [address] URINALYSISon 08-25-2017 APPEARANCE HAZY Normal CLEAR [facility] Comment on above: Performed By: #### L IPID ####[facility] [place] [address] BILIRUBIN Negative Normal NEGATIVE [facility] Comment on above: Performed By: #### L IPID ####[facility] [place] [address] BLOOD Negative Normal NEGATIVE [facility] Comment on above: Performed By: #### L IPID ####[facility] [place] [address] COLOR YELLOW Normal STRAW,YELL OW [facility] Comment on above: Performed By: #### L IPID ####[address] [place] [address] GLUCOSE Negative Normal NEGATIVE [facility] Comment on above: Performed By: #### L IPID ####[address] [place] [address] KETONES Negative Normal NEGATIVE [facility] Comment on above: Performed By: #### L IPID ####[address] [place] [address] LEUKOCYTE ESTERASE TRACE Abnormal NEGATIVE [facility] Comment on above: Performed By: #### L IPID ####[address] [place] [address] NITRITE Negative Normal NEGATIVE [facility] Comment on above: Performed By: #### L IPID ####[address] [place] [address] pH 6.0 Normal 5.0 - 8.0 [facility] Comment on above: Performed By: #### L IPID ####[address] [place] [address] Protein mass conc Negative Normal NEGATIVE [facility] Comment on above: Performed By: #### L IPID ####[address] [place] [address] SPECIFIC GRAVITY 1.013 Normal 1.005 - 1.035 [facility] Comment on above: Performed By: #### L IPID ####[address] [address] UROBILINOGEN <2.0 Normal 0.0 - 1.9 [facility] Comment on above: Performed By: #### L IPID ####[address] [address] BASIC METABOLIC PANELon - Anion gap 3 molar conc 13 mmol/L Normal 10 - 20 [facility] Comment on above: Order Comment: Drop off AHA, Phleb, [place] #5581 08/21/2017 pstei Performed By: #### L IPID ####[address] [place] [address] Calcium mass conc 9.3 mg/dL Normal 8.6 - 10.3 [facility] Comment on above: Order Comment: Drop off AHA, Phleb, [place] #3098 08/21/2017 pstei Performed By: #### L IPID ####[address] [address] Chloride molar conc 101 mmol/L Normal 98 - 107 [facility] Comment on above: Order Comment: Drop off AHA, Phleb, [place] #3951 08/21/2017 pstei Performed By: #### L IPID ####[address] [address] Creatinine mass conc 0.90 mg/dL Normal 0.50 - 1.05 [facility] Comment on above: Order Comment: Drop off AHA, Phleb, [place] #7173 08/21/2017 pstei Performed By: #### L IPID ####[address] [address] GFR- AM. 73 mL/min/1.73m2 Normal >60 [facility] Comment on above: Order Comment: Drop off AHA, Phleb, [place] #4723 08/21/2017 pstei Result Comment: CALC ULATIONS OF ESTIMATED GFR ARE PERFORMED USING THE MDRD STUDY EQUATION FOR THE IDMS-TRACEABLE CREATININE METHODS. CLIN CHEM 2007;53:766-72 Performed By: #### L IPID ####[address] [address] GFR-NON AM. 60 mL/min/1.73m2 Abnormal >60 [facility] Comment on above: Order Comment: Drop off AHA, Phleb, [place] #395 08/21/2017 pstei Performed By: #### L IPID ####[address] [place] [address] Glucose mass conc 108 mg/dL High 74 - 99 [facility] Comment on above: Order Comment: Drop off AHA, Phleb, [place] #39508/21/2017 pstei Performed By: #### L IPID ####[address] [address] HCO3 molar conc (Bld) 29 mmol/L Normal 21 - 32 [facility] Comment on above: Order Comment: Drop off AHA, Phleb, [place] #39508/21/2017 pstei Performed By: #### L IPID ####[address] [address] Potassium molar conc 4.2 mmol/L Normal 3.5 - 5.3 [facility] Comment on above: Order Comment: Drop off AHA, Phleb, [place] #39508/21/2017 pstei Performed By: #### L IPID ####[address] [address] Sodium molar conc 139 mmol/L Normal 136 - 145 [facility] Comment on above: Order Comment: Drop off AHA, Phleb, [place] #39508/21/2017 pstei Performed By: #### L IPID ####[address] [address] Urea nitrogen mass conc 17 mg/dL Normal 6 - 23 [facility] Comment on above: Order Comment: Drop off AHA, Phleb, [place] #39508/21/2017 pstei Performed By: #### L IPID ####[address] [address] CBCon 08-21-2017 Erythrocyte distribution width Auto Ratio (RBC) 14.4 % Normal 11.5 - 14.5 [facility] Comment on above: Order Comment: Drop off AHA, Phleb, [place] #3958 08/21/2017 pstei Performed By: #### L IPID ####[address] [place] [address] Hematocrit Auto Volume Fraction (Bld) 37.2 % Normal 36.0 - 46.0 [facility] Comment on above: Order Comment: Drop off AHA, Phleb, Ann[place] #3958 08/21/2017 pstei Performed By: #### L IPID ####[address] [address] Hemoglobin mass conc (Bld) 12.0 g/dL Normal 12.0 - 16.0 [facility] Comment on above: Order Comment: Drop off AHA, Phleb, [place] #3955 08/21/2017 pstei Performed By: #### L IPID ####[address] [address] MCHC Auto mass conc (RBC) 32.3 g/dL Normal 32.0 - 36.0 [facility] Comment on above: Order Comment: Drop off AHA, Phleb, [place] #39508/21/2017 pstei Performed By: #### L IPID ####[address] [address] MCV Auto Entitic volume (RBC) 100 fL Normal 80 - 100 [facility] Comment on above: Order Comment: Drop off AHA, Phleb, [place] #3956 08/21/2017 pstei Performed By: #### L IPID ####[address] [address] Platelets Auto #/vol (Bld) 322 10*3/uL Normal 150 - 450 [facility] Comment on above: Order Comment: Drop off AHA, Phleb, [place] #39508/21/2017 pstei Performed By: #### L IPID ####[address] [address] RBC Auto #/vol (Bld) 3.71 x10E12/L Low 4.00 - 5.20 [facility] Comment on above: Order Comment: Drop off AHA, Phleb, Ann[place] #3955 08/21/2017 pstei Performed By: #### L IPID ####[address] [address] WBC Auto #/vol (Bld) 8.2 10*3/uL Normal 4.4 - 11.3 [facility] Comment on above: Order Comment: Drop off DYAN Donald Dayday #3959 08/21/2017 pstei Performed By: #### L IPID ####[address] [address] BASIC METABOLIC PANELon - Anion gap 3 molar conc 11 mmol/L Normal 10 - 20 [facility] Comment on above: Performed By: #### L IPID ####[address] [address] Calcium mass conc 8.2 mg/dL Low 8.6 - 10.3 [facility] Comment on above: Performed By: #### L IPID ####[address] [address] Chloride molar conc 107 mmol/L Normal 98 - 107 [facility] Comment on above: Performed By: #### L IPID ####[address] [address] Creatinine mass conc 0.82 mg/dL Normal 0.50 - 1.05 [facility] Comment on above: Performed By: #### L IPID ####[address] [address] GFR- AM. >60 Normal >60 [facility] Comment on above: Result Comment: CALC ULATIONS OF ESTIMATED GFR ARE PERFORMED USING THE MDRD STUDY EQUATION FOR THE IDMS-TRACEABLE CREATININE METHODS. CLIN CHEM 2007;53:766-72 Performed By: #### L IPID ####[address] [place] [address] GFR-NON AM. >60 Normal >60 [facility] Comment on above: Performed By: #### L IPID ####[address] [place] [address] Glucose mass conc 92 mg/dL Normal 74 - 99 [facility] Comment on above: Performed By: #### L IPID ####[address] [address] HCO3 molar conc (Bld) 26 mmol/L Normal 21 - 32 [facility] Comment on above: Performed By: #### L IPID ####[address] [place] [address] Potassium molar conc 3.5 mmol/L Normal 3.5 - 5.3 [facility] Comment on above: Performed By: #### L IPID ####[address] [address] Sodium molar conc 140 mmol/L Normal 136 - 145 [facility] Comment on above: Performed By: #### L IPID ####[address] [address] Urea nitrogen mass conc 11 mg/dL Normal 6 - 23 [facility] Comment on above: Performed By: #### L IPID ####[address] [address] CBCon 07-29-2017 Erythrocyte distribution width Auto Ratio (RBC) 13.0 % Normal 11.5 - 14.5 [facility] Comment on above: Performed By: #### L IPID ####[address] [address] Hematocrit Auto Volume Fraction (Bld) 33.6 % Low 36.0 - 46.0 [facility] Comment on above: Performed By: #### L IPID ####[address] [address] Hemoglobin mass conc (Bld) 10.8 g/dL Low 12.0 - 16.0 [facility] Comment on above: Performed By: #### L IPID ####[address] [address] MCHC Auto mass conc (RBC) 32.1 g/dL Normal 32.0 - 36.0 [facility] Comment on above: Performed By: #### L IPID ####[address] [address] MCV Auto Entitic volume (RBC) 103 fL High 80 - 100 [facility] Comment on above: Performed By: #### L IPID ####[address] [address] Platelets Auto #/vol (Bld) 252 10*3/uL Normal 150 - 450 [facility] Comment on above: Performed By: #### L IPID ####[address] [place] [address] RBC Auto #/vol (Bld) 3.25 x10E12/L Low 4.00 - 5.20 [facility] Comment on above: Performed By: #### L IPID ####[address] [place] [address] WBC Auto #/vol (Bld) 6.3 10*3/uL Normal 4.4 - 11.3 [facility] Comment on above: Performed By: #### L IPID ####[address] [place] [address] CLOST.DIFF.TOXIN,PCRon 07-29 CLOST.DIFF.TOXIN,PCR NOT DETECTED Normal Not Detected [facility] Comment on above: Result Comment: This [...] 7 days. Performed By: #### L IPID ####[address] [place] [address] Daily Progress Note-Melly merino 07-29-2017 Protein mass conc Service: Surgery Sub jective Data:KATHERINE JUDGE is a 82 year old Female who is Hospital Day # 4. MORE AWAKE / TOLERATING PO / C DIFF NEGATIVE. Objective Data: Objective Information:T [id number]/739 7%Date/Time07/29 6: 6: 6: 6: 6:40Range(36.6C - [...] Last Updated: 29-Jul-2017 08:52 by Manny Arana) [facility] Discharge Planning Noteon Discharge Planning Note Discharge Needs Assessment:? Discharge Planning Assessment [id number]? Discharge Planning Assessment Completed bySom PERALTA Patient Learning:? Factors that Impact Ability to Learnnone(1) Other Factors:? Functional Screen: In the recent/past 2-4 weeks, patient or family havenoticednew difficulty in safely performing activities of daily living, asignificant change in function affecting balance, or the ability to safelytransfer or ambulate (And is not on bedrest)(2) Discharge Needs:? [facility]:Discharge Plannin07/29/17 Spoke with patient with family present, patient stated ok to talk infront of family, patient and family in agreement to return to [facility] continue skilled at [facility]. [facility] will [facility] patient at discharge, no precert required. Willcontinue to follow. Som PERALTA 07/29/17 Discharge Orders sent via [facility] to [facility]. Som Escoto 07/29/17 1427 Pt dischg. back to [facility] complete her rehab. with IVd/c and cath intact. Transported by [facility] via strechter withfamily also going to go to [facility] to help pt. get settled. Report alsocalled to nurse Olga at [facility] per resourse nurse, Joy. LEIA Wallace Final Disposition/Discharge:Dispos ition/Discharge Information: Discharge/Transfer Information:? Discharge/Transfer Date/Iibz00-Yzg-9559 14:27 Electronic Signatures:France Bean (RN) (Signed 29-Jul-2017 14:45)Authored: Discharge Planning Note, Final Disposition/DischargeSom Jama (CLIN COOR) (Signed 29-Jul-2017 11:19)Authored: Discharge Planning Note Last Updated: 29-Jul-2017 14:45 by France Bean (RN) References:1. Data Referenced From "5. Education" 07/26/2017 05:07 PM2. Data Referenced From Admission Risk Screen - Adult" 07/26/2017 05:07 PM Normal [facility] Discharge [id number] 06-20-2 018 Protein mass conc Discharge Orders:Ant icipated Discharge Date:? Anticipated Discharge [id number] Problem List: Admitting Dx:? Acute kidney injury: [...] Review of Medication Reconciliation and Orders Completedby PROGRAM SUPERVISOR? Reviewing ProviderPatricia GIANNA Tillman at 29-Jul-2017 13:51:52 Gold Form - Nursing Summary:Special Treatments/Procedures (in past 14 days):? Chemotherapyno? Dialysisno? IV Medicationno? Oxygen Therapyno? Transfusionsno? Feverno? Radiationno? Ventilatorno? Tracheostomyno? Suctioningno Nutrition:? Nutritional Statusfeeds self, good set up? Nutrition CommentBoost Sensory/Comfort:? Visionadequate? Hearingadequate? Speechclear? Painno Elimination:? Bladdercontinent, occ. incont.? Bowelcontinent? Last Bowel Cmdbsufj26-Gjk-8566? Toiletingtoilet Safety:? Siderailsyes? Siderails Number/ReasonSafety? Restraintsno? Sitterno? Fall Riskprevious falls, weakness Medication/Hygiene/Mobility: ? Medication Administrationassist? Bathingassist? Dressingassist? Bed Mobilitysupervision only? Wheelchairassist? Transfersassist? Ambulationassist Gold Form - Sheet Combining Operator Summary:Referral Information:? Referral [facility]? Referring Facility [facility]? Contact Sebastian Chaudhari [facility]? Contact Phone [phone] Electronic Signatures:Nima Teixeira (CINTHYA) (Signed 29-Jul-2017 13:45)Authored: Gold Form - Nursing SummarySom Chaudhari (CLIN COOR) (Signed 29-Jul-2017 07:48)Authored: Gold Form - Sheet Combining Operator SummaryValerie Jiang) (Signed 29-Jul-2017 10:13)Authored: Discharge OrdersAlex Tillman (PROGRAM SUPERVISOR-GRINDER SET UP OPERATOR THREAD TOOL) (Signed 29-Jul-2017 13:51)Authored: Discharge Orders, Gold Form Orders, Provider FINAL REVIEW of Orders Last Updated: 29-Jul-2017 13:51 by Alex Tillman (PROGRAM SUPERVISOR-GRINDER SET UP OPERATOR THREAD TOOL) Normal [facility] MAGNESIUMon 07-29-2017 Magnesium mass conc 1.38 mg/dL Low 1.60 - 2.40 [facility] Comment on above: Performed By: #### L IPID ####[address] [place] [address] BASIC METABOLIC PANELon - Anion gap 3 molar conc 6 mmol/L Low 10 - 20 [facility] Comment on above: Performed By: #### L IPID ####[address] [place] [address] Calcium mass conc 9.0 mg/dL Normal 8.6 - 10.3 [facility] Comment on above: Performed By: #### L IPID ####[address] [place] [address] Chloride molar conc 108 mmol/L High 98 - 107 [facility] Comment on above: Performed By: #### L IPID ####[address] [address] Creatinine mass conc 1.00 mg/dL Normal 0.50 - 1.05 [facility] Comment on above: Performed By: #### L IPID ####[address] [address] GFR- AM. 64 mL/min/1.73m2 Normal >60 [facility] Comment on above: Result Comment: CALC ULATIONS OF ESTIMATED GFR ARE PERFORMED USING THE MDRD STUDY EQUATION FOR THE IDMS-TRACEABLE CREATININE METHODS. CLIN CHEM 2007;53:766-72 Performed By: #### L IPID ####[address] [place] [address] GFR-NON AM. 53 mL/min/1.73m2 Abnormal >60 [facility] Comment on above: Performed By: #### L IPID ####[address] [place] [address] Glucose mass conc 92 mg/dL Normal 74 - 99 [facility] Comment on above: Performed By: #### L IPID ####[address] [place] [address] HCO3 molar conc (Bld) 30 mmol/L Normal 21 - 32 [facility] Comment on above: Performed By: #### L IPID ####[address] [place] [address] Potassium molar conc 3.3 mmol/L Low 3.5 - 5.3 [facility] Comment on above: Performed By: #### L IPID ####[facility] [place] [address] Sodium molar conc 141 mmol/L Normal 136 - 145 [facility] Comment on above: Performed By: #### L IPID ####[facility] [place] [address] Urea nitrogen mass conc 19 mg/dL Normal 6 - 23 [facility] Comment on above: Performed By: #### L IPID ####[address] [place] [address] BONE SCAN/ WHOLE BODYon 07-10 BONE SCAN/ [...] a normal variation.This study was interpreted at [facility]. Electronically signed by: MICHEAL AGUIRRE MD Normal [facility] CBCon 07-28-2017 Erythrocyte distribution width Auto Ratio (RBC) 13.1 % Normal 11.5 - 14.5 [facility] Comment on above: Performed By: #### L IPID ####[address] [place] [address] Hematocrit Auto Volume Fraction (Bld) 30.5 % Low 36.0 - 46.0 [facility] Comment on above: Performed By: #### L IPID ####[address] [place] [address] Hemoglobin mass conc (Bld) 9.5 g/dL Low 12.0 - 16.0 [facility] Comment on above: Performed By: #### L IPID ####[address] [address] MCHC Auto mass conc (RBC) 31.1 g/dL Low 32.0 - 36.0 [facility] Comment on above: Performed By: #### L IPID ####[address] [place] [address] MCV Auto Entitic volume (RBC) 103 fL High 80 - 100 [facility] Comment on above: Performed By: #### L IPID ####[address] [place] [address] Platelets Auto #/vol (Bld) 247 10*3/uL Normal 150 - 450 [facility] Comment on above: Performed By: #### L IPID ####[address] [address] RBC Auto #/vol (Bld) 2.96 x10E12/L Low 4.00 - 5.20 [facility] Comment on above: Performed By: #### L IPID ####[facility] [facility] [place] [address] WBC Auto #/vol (Bld) 5.4 10*3/uL Normal 4.4 - 11.3 [facility] Comment on above: Performed By: #### L IPID ####[facility] [place] [address] Daily Progress Note-Medicine on 07-28-2017 Protein mass [...] an uneventful night. Objective Data: Objective Information:T KQRGVlL0Slgbu17.35784186/769 6%Date/Time07/28 6: 6: 6: 6: 6:49Range(36.6C - 37.2C ) (68 - [...] Oral Daily16. Simvastatin: 40 mg Oral At Fmaivvs51. tiZANidine: 2 mg Oral Every 24 Hours PRN Medications ---- 1. Acetaminophen: 650 mg Oral Every 4 Hours2. Bisacodyl Enteric Coated: 5 mg Oral Once3. Magnesium Hydroxide -Al Hydrox -Simethicone Oral Liquid: 30 mL OralEvery 6 Hours4. traMADol: 50 mg Oral Every 6 Hours Recent Lab Results: Results:Complete Blood Hqzav34-Sso-3811 08:25:00 ResultValueReference RangeWhite Blood Cell Count5.44.4 - 11.3 x10E9/LRed Blood Cell Count2.96 L4.00 - 5.20 x10E12/LHGB9.5 L12.0 - 16.0 g/dLHCT30.5 L36.0 - 46.0 %TYX518 H80 - 100 qBYUEB05.1 L32.0 - 36.0 g/hXYUG861014 - 450 x10E9/LRDW-CV13.111.5 - 14.5 % Basic Metabolic Vtapl26-Pxd-3322 08:25:00 ResultValueReference RangeGlucose, Dwhcu4071 - 99 mg/iCGY626995 - 145 mmol/LK3.3 L3.5 - 5.3 mmol/JRL127 H98 - 107 mmol/LBicarbonate, Ahjsq6022 - 32 mmol/LAnion Gap, Serum6 L10 - 20 mmol/MWQZ494 - 23 mg/dLCREAT1.000.50 - 1.05 mg/dLGFR-Non Krqeaomy36 A>60 mL/min/1.34a3MMD-Anfoami Gdizcpgj66>60 mL/min/1.04k3Bpgfjnw, Serum9.08.6 - 10.3 mg/dL Assessment and Plan:Assessment: [...] the decisions made by me. Electronic Signatures:Va Paez (NE) (Entered 28-Jul-2017 14:24)Entered: Service, Subjective Data, Objective Data, Assessment and Plan,Signature/Cosignature/A ttestationValerie Jiang) (Signed 28-Jul-2017 17:01)Authored: Service, Subjective Data, Objective Data, Assessment and Plan,Signature/Cosignature/A ttestation Last Updated: 28-Jul-2017 17:01 by Valerie Jiang) Normal [facility] BASIC METABOLIC PANELon 06- Anion gap 3 molar conc 9 mmol/L Low 10 - 20 [facility] Comment on above: Performed By: #### L IPID ####[facility] [place] [address] Calcium mass conc 10.9 mg/dL High 8.6 - 10.3 [facility] Comment on above: Performed By: #### L IPID ####[address] [place] [address] Chloride molar conc 105 mmol/L Normal 98 - 107 [facility] Comment on above: Performed By: #### L IPID ####[address] [address] Creatinine mass conc 1.47 mg/dL High 0.50 - 1.05 [facility] Comment on above: Performed By: #### L IPID ####[address] [address] GFR- AM. 41 mL/min/1.73m2 Abnormal >60 [facility] Comment on above: Result Comment: CALC ULATIONS OF ESTIMATED GFR ARE PERFORMED USING THE MDRD STUDY EQUATION FOR THE IDMS-TRACEABLE CREATININE METHODS. CLIN CHEM 2007;53:766-72 Performed By: #### L IPID ####[address] [address] GFR-NON AM. 34 mL/min/1.73m2 Abnormal >60 [facility] Comment on above: Performed By: #### L IPID ####[address] [address] Glucose mass conc 91 mg/dL Normal 74 - 99 [facility] Comment on above: Performed By: #### L IPID ####[address] [address] HCO3 molar conc (Bld) 29 mmol/L Normal 21 - 32 [facility] Comment on above: Performed By: #### L IPID ####[address] [address] Potassium molar conc 3.9 mmol/L Normal 3.5 - 5.3 [facility] Comment on above: Performed By: #### L IPID ####[address] [address] Sodium molar conc 139 mmol/L Normal 136 - 145 [facility] Comment on above: Performed By: #### L IPID ####[address] [address] Urea nitrogen mass conc 33 mg/dL High 6 - 23 [facility] Comment on above: Performed By: #### L IPID ####[address] [place] [address] CBCon 07-27-2017 Erythrocyte distribution width Auto Ratio (RBC) 13.2 % Normal 11.5 - 14.5 [facility] Comment on above: Performed By: #### L IPID ####[address] [place] [address] Hematocrit Auto Volume Fraction (Bld) 31.3 % Low 36.0 - 46.0 [facility] Comment on above: Performed By: #### L IPID ####[address] [address] Hemoglobin mass conc (Bld) 9.8 g/dL Low 12.0 - 16.0 [facility] Comment on above: Performed By: #### L IPID ####[address] [address] MCHC Auto mass conc (RBC) 31.3 g/dL Low 32.0 - 36.0 [facility] Comment on above: Performed By: #### L IPID ####[address] [address] MCV Auto Entitic volume (RBC) 105 fL High 80 - 100 [facility] Comment on above: Performed By: #### L IPID ####[address] [address] Platelets Auto #/vol (Bld) 241 10*3/uL Normal 150 - 450 [facility] Comment on above: Performed By: #### L IPID ####[address] [address] RBC Auto #/vol (Bld) 2.99 x10E12/L Low 4.00 - 5.20 [facility] Comment on above: Performed By: #### L IPID ####[address] [address] WBC Auto #/vol (Bld) 6.3 10*3/uL Normal 4.4 - 11.3 [facility] Comment on above: Performed By: #### L IPID ####[address] [address] Consulton 07-27-2017 Consult Service:Consult:Cons ult requested by (Attending Name): Cadenason: PATIENT KNOWN TO ME / S/P RIGHT COLECTOMY FOR CECAL VOLVULUS / History of Present Illness:HPI:PATIENT 25 DAYS S/P RIGHT COLECTOMY FOR CECAL VOLVULUS / WAS DC [place] AND DOINGRESONABLE WELL / NOTED TO BE [...] bowel obstruction (disorder):Acute bowel obstruction: Onset Date: 84-Ihb-8663Qmypmlrccni abdominal pain (finding):Acute bowel obstruction:Acute bowel obstruction: [...] Confusion? Restoril: Confusion Objective: Objective Information: T BVUFBhT2Dmvei04.89969601/659 7%Date/Time07/26 21: 21: 21: 21: 21:00Range(36.7C - [...] reviewed these laboratory results: Complete Blood Count [Aurow57-App-3105 06:25:00], Basic Metabolic Panel [Drawn 27-Jul-2017 06:25:00],Comprehensive [...] Updated: 27-Jul-2017 07:34 by Manny Arana) Normal [facility] History and Physicalon 07-27 History and [...] lead 3 and aVF.Medications: Cipro, IV bolus t6Cnjbffr was admitted to med surg for further medical management. Past Medical/Surgical History:Gastrocutaneous fistulaConstipationIleusExpl oratory laparotomyAnemiaTransient ischemic colitis (disorder)Protein malnutrition unspecified (disorder)Hypokalemia (disorder)Magnesium deficiencyColitis (disorder)Small bowel obstruction (disorder)Acute bowel obstruction: Onset Date: 52-Ncg-4622Hvkqclqnyeq abdominal pain (finding)CAD, status post 2013 circumflex [...] Confusion? Restoril: Confusion Objective: Objective Information: T THNGScY8Ntmiy24.01525604/619 8%Date/Time07/27 6:5807/27 6:5818 6:5818 6:5818 6:58Range(36.7C - 36.8C ) (62 - 71 ) (18 - 18 ) (129 - 140 )/ (61 - 67 ) (97%- 99% ) As of 26-Jul-2017 20:54:00, patient is on 2% oxygen via nasal cannula. Pain at Rest reported at 6/17 20:54: 0 Weights6/18 14:03: Weight in lbs ((lbs)) 89.56/18 14:03: BMI (kg/m2) (BMI (kg/m2)) 16.3876/ 17:00: Weight in kg (Weight (kg)) 40.6 [...] Oral Daily13. Simvastatin: 40 mg Oral At Tdpyupj78. [employer] Tc 99m Medronate (MDP - Radiology [...] 6 Hours Recent Lab Results: Results:Complete Blood Xvhei33-Kcj-5180 06:25:00 ResultValueReference RangeWhite Blood Cell Count6.34.4 - 11.3 x10E9/LRed Blood Cell Count2.99 L4.00 - 5.20 x10E12/LHGB9.8 L12.0 - 16.0 g/dLHCT31.3 L36.0 - 46.0 %ZHE625 H80 - 100 pBYOQT29.3 L32.0 - 36.0 g/qCCWR059691 - 450 x10E9/LRDW-CV13.211.5 - 14.5 % Basic Metabolic Omigz51-Yrl-2050 06:25:00 ResultValueReference RangeGlucose, Oozuf9455 - 99 mg/tYSX749138 - 145 mmol/LK3.93.5 - 5.3 mmol/YXF50456 - 107 mmol/LBicarbonate, Ihfor3963 - 32 mmol/LAnion Gap, Serum9 L10 - 20 mmol/LBUN33 H6 - 23 mg/dLCREAT1.47 H0.50 - 1.05 mg/dLGFR-Non Avygyxck86 A>60 mL/min/1.56f3UJZ-Btzhgyc Qrmqmeuk55 A>60 mL/min/1.79e1Ejsddow, Serum10.9 H8.6 - 10.3 mg/dL Brain Natriuretic Wlplugj42-Mlc-2335 15:10:00 ResultValueReference RangeBrain Natriuretic Tstotdz195 - 99 pg/mL Bgszjntajo27-Kgc-7115 15:06:00 ResultValueReference RangeColor, UrineYELLOW Reference Range: STRAW,YELLOWAppearance, UrineHAZYCLEARSpecific Dobbins, Urine1.0091.005 - 1.035pH, Urine6.05.0 - 8.0Protein, UrineNEGATIVENEGATIVE mg/dLGlucose, UrineNEGATIVENEGATIVE mg/dLBlood, UrineSMALL(1+) ANEGATIVEKetones, UrineNEGATIVENEGATIVE mg/dLBilirubin, UrineNEGATIVENEGATIVEUrobili nogen, Urine<2.00.0 - 1.9 mg/dLNitrite, UrineNEGATIVENEGATIVELeukocy te Esterase, UrineMODERATE(2+) ANEGATIVE Urinalysis, Glvjggjcnzp54-Nzj-4846 15:06:00 ResultValueReference RangeWhite Cells8 A0 - 5 /HPFRed Blood Cells2 A0 - 5 /HPFEpithelial Cells, Yrumatmh8Syttqodjkw Cells, Transitional<1Bacteria, Urine4+ AMucousFEWHyaline Casts3+ AAmorphous Crystals1+ Culture, BloodTrending View Aphosx77-Swo-9899 14:35:2335-Mgg-4857 14:34:00Reference RangeCulture, BloodNEGATIVE TO DATE, CULTURE IN PROGRESS.NEGATIVE TO DATE, CULTUREIN PROGRESS. Comprehensive Metabolic Nulpb80-Tbp-6544 14:34:00 ResultValueReference RangeLab Comment:Dr Vance notified, 07/26/2017 15:10Glucose, Dwxwn535 H74 - 99 mg/cDFC227579 - 145 mmol/LK4.83.5 - 5.3 mmol/MEO6576 - 107 mmol/LBicarbonate, Lzchq5604 - 32 mmol/LAnion Gap, Vmjnw0380 - 20 mmol/LBUN43 H6 - 23 mg/dLCREAT1.94 H0.50 - 1.05 mg/dLGFR-Non Kuuvqltj99 A>60 mL/min/1.09o1HBE-Zlmcxgd Pvqpymdg52 A>60 mL/min/1.47d6Eglarrt, Serum13.2 HH8.6 - 10.3 mg/dLALB3.0 L3.4 - 5.0 g/jGSTGT0814 - 136 U/LT Pro6.66.4 - 8.2 g/Rashi Bili0.40.0 - 1.2 mg/dLAlanine Aminotransferase, Kdqrb309 - 45 U/LAspartate Transaminase, Ntery747 - 39 U/L Complete Blood Count + Tpeuvuhllicw43-Sho-6439 14:34:00 ResultValueReference RangeWhite Blood Cell Count10.54.4 - 11.3 x10E9/LRed Blood Cell Count3.33 L4.00 - 5.20 x10E12/LHGB11.0 L12.0 - 16.0 g/dLHCT34.2 L36.0 - 46.0 %HKR924 H80 - 100 nNMRJK33.232.0 - 36.0 g/pMHHQ964826 - 450 x10E9/LRDW-CV13.311.5 - 14.5 %Neutrophil %86.540.0 - 80.0 %Immature Granulocytes %0.50.0 - 0.9 %Lymphocyte %10.613.0 - 44.0 %Monocyte %2.02.0 - 10.0 %Eosinophil %0.20.0 - 6.0 %Basophil %0.20.0 - 2.0 %Neutrophil Count9.11 H1.60 - 5.50 x10E9/LLymphocyte Count1.110.80 - 3.00 x10E9/LMonocyte Count0.210.05 - 0.80 x10E9/LEosinophil Count0.020.00 - 0.40 x10E9/LBasophil Count0.020.00 - 0.10 x10E9/L PT + INR, Zuoloi64-Gtt-9343 14:34:00 ResultValueReference RangeProthrombin Time, Iqfunb77.3 H9.8 - 12.7 secInternational Normalized Ratio, Plasma1.2 H0.9 - 1.1 RBC Oqohzybzcj88-Fhj-8264 14:34:00 ResultValueReference RangeRed Blood Cell MorphologySEE COMMENT NO SIGNIFICANT RBC ABNORMALITIES SEEN ONSMEAR REVIEW. 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 Nutrition consulted per nursing screen for MST 2 or more, eating poorly/recentweight loss and for assessment recommendations. Per chart: Pt presented to ED from shelter facility on 07/26 atrecommendation of primary care [...] Pt says she would try Boost Plus [place]. Says she does not likeeggs. Noted different [...] 2 Abdomen Pain 3 Cholelithiasis: Onset Date: 41-Bso-8670Fahxf failure: Description: Heart failurePNEUMONIA:Diabetes mellitus: Description: Diabetes [...] bowel obstruction (disorder):Acute bowel obstruction: Onset Date: 96-Dsa-1575Yvzsp bowel obstruction: Objective Information: T XSMJEgT9Tylxa50.86824491/619 8%Date/Time07/27 6: 6: 6: 6: 6:58Range(36.7C - 36.8C ) (62 - 71 ) (18 - 18 ) (129 - 140 )/ (61 - 67 ) (97%- 99% ) As of 26-Jul-2017 20:54:00, patient is on 2% oxygen via nasal cannula. Pain at Rest reported at 07/26 20:54: 0 Weights07/26 17:00: Weight in kg (Weight (kg)) 40.66 17:00: Weight in lbs ((lbs)) 89. 17:00: BMI (kg/m2) (BMI (kg/m2)) 18.712 ---- Intake and Output -----Mn/Dy/Year TimeIntakeOutputNetCarteret Health Care 2017 2:00 [id number] 2017 10:00 [id number] The Intake and Output Totals for the last 24 hours are:MbblciOnrafbQsh412gmzeco ll Height/Weight:Height in feet: 5 feetHeight in [...] (H) Nutrition Labs:Special Chemistry: 03-Jul-2017 10:15, Hemoglobin C1VIyynkkuymi A1C, Level5.3 Diagnosis of Diabetes-Adults Non-Diabetic: < or = 5.6% Increased risk for developing diabetes: 5.7-6.4% Diagnostic of diabetes: > or = 6.5%. Monitoring of Diabetes Age (y) Therapeutic Goal (%) Adults: >18 <7.0 Pediatrics: 13-18 <7.5 7-12 <8.0 0- 6 7.5-8.5 [place] [employer]. Diabetes Care 33(S1), Feb 2009.Estimated Average Gjaqlbr900 Current Active Medications/PN:Bisacodyl Enteric Coated, Enteric Coated Tablet (DULCOLAX)DOSE = 5 mg Oral Once, PRN Constipation, 24-Xjb-2697Ipxbboowd Hydroxide -Al Hydrox -Simethicone Oral Liquid, (MAALOX)DOSE = 30 mL Oral Every 6 Hours, PRN Dyspepsia, 86-Nlm-6224Rfpexypznb, Tablet (PRINIVIL, ZESTRIL)DOSE = 10 mg Oral Daily, 13-Xfl-3465hziBPKex, Tablet (ULTRAM)DOSE = 50 mg Oral Every 6 Hours, PRN Pain - Mod (4-6), 05-Ehs-6167Qictzrmqcvk, Tablet (PLAVIX)DOSE = 75 mg Oral Daily, 91-Cqy-3490Zyjineoanw, Tablet (LASIX)DOSE = 20 mg Oral Daily, 33-Pii-8470Cgyqjfsuvv, Capsule (NEURONTIN)DOSE = 300 mg Oral 3 Times a Day, 52-Eta-9926Rxxpkeiraq Mononitrate Extended Release, Tablet, Extended Release (IMDUR)DOSE = 60 mg Oral Daily, 92-Oui-3253Jhtvlblxek Tartrate, Tablet (LOPRESSOR)DOSE = 50 mg Oral Every 12 Hours, 12-Fxw-3134Youcxcekyvx, Tablet (ZOCOR)DOSE = 40 mg Oral At Bedtime, 39-Jjz-5965Ybfpgreavo, Tablet (PEPCID)DOSE = 20 mg Oral At Bedtime, 30-Anh-0609Csapcejcdt Oral Liquid, DOSE = 125 mg Oral Every 6 Hours, 76-Gry-2835Vxmoqhp Sulfate, Tablet (FEOSOL)DOSE = 325 mg Oral Daily, 96-Rxs-9800Qwpfggvvs Chloride Extended Release, Tablet, Extended ReleaseDOSE = 10 mEq Oral Daily, 42-Qfe-5179mxCCNGvfj Extended Release (24 hour), Tablet, Extended Release (WELLBUTRINXL)DOSE = 150 mg Oral Every 24 Hours, 36-Ppo-6699Ojfzbvtgpx, Tablet (ZOLOFT)DOSE = 150 mg Oral Daily, 40-Dhr-3661srRZYyscim, Tablet (ZANAFLEX)DOSE = 2 mg Oral Every 24 Hours, 16-Hkw-5648Wjeafw Chloride 0.9% with Potassium CL 20 mEq Premix Fluid, IV Bag Volume =1,000 mL Run at: 100 mL/hr IntraVenous , 27-Jul-2017 Nutrition Orders:Diet, Regular, 33-Shs-9474Tdm Participate in Room Service, YesOrder entered from Admission Screens., 28-Gdd-2896Aame Nutritional Supplements, RoutineBoost PlusFlavor Preference: [place], 3 Times a DaySpecial Instructions: Please send Boost Plus Buffalo with each tray.Thank you!, 27-Jul-2017 Food/Nutrition Related [...] needs reinforcementAnticipated Compliance: fair Electronic Signatures:Silvia Tyler (RDN, DEEPA) (Signed 27-Jul-2017 15:15)Authored: Assessment Subjective/Objective, Nutrition Focused PhysicalFindings, Estimated Needs, Nutrition Diagnosis, Nutrition Interventions,Nutrition Goals, Nutrition Recommendations, Dietitian Monitoring and EvaluationPlan, Diet Education Last Updated: 27-Jul-2017 15:15 by Silvia Tyler (RDN, LD) Normal [facility] PARATHYROID HORMONE,INTACTon 07-27-2017 PARATHYROID HORMONE,INTACT < 6.3 Low 18.5 - 88.0 [facility] Comment on above: Result Comment: Daniel ents receiving more than 5 mg/day of biotin may have interference in test results. A sample should be taken no sooner than eight hours after previous dose. Contact [phone] for additional information. Performed By: #### L IPID ####[facility] [place] [address] Admission Risk Screen - Adul ton 07-26-2017 [...] Advance Directive typeLiving Will, Durable Power of Automotive Refinisher for Healthcare? Living Will AvailabilityLiving Will not available now? Living Will Socdrbigb36-Lxj-3528? Durable Power of Automotive Refinisher AvailabilityDPOA not available now? Durable Power of Automotive Refinisher Uwkqhmofh12-Lwh-4679? Durable Power of Automotive Refinisher contact (name and number)Danniequentin Judge- [phone]? Advance Directive Mental Healthnot applicable Falls Screen:Type [...] material; verbal instruction? Cultural Considerationsnone? Developmental Considerationsnone? Christianity Considerationsnone Learning Assessment (Other Learner):? Other learner [...] Spiritual Screen:? Are there any cultural, spiritual, catholic practices/values/needs that areimportant for us to know?no CAGE:Is this an [place] [place] no Vaccinations:Vaccination - Influenza Vaccination Screen:? Is [...] "Triage - ED" 07/26/2017 2:05 PM Normal [facility] BLOOD CULTURE, BACTERIALon 0 07-26-2017 BLOOD CULTURE, BACTERIAL PATIENT: KATHERINE JUDGE LOCATION: [address]#: [id number] : [birth year] AGE: SEX: F ORDERED BY: TOMMY MENDEZ: Blood COLLECTED: 07/26/17 14:35ANTIBIOTICS AT ESDRAS.: RECEIVED : 07/27/17 09:48SITE: ANTECUBITAL R E S U L T S BLOOD CULTURE, BACTERIAL FINAL 08/01/17 11:42 No Growth at 1 days No Growth at 2 days No Growth at 3 days No Growth at 4 days NO GROWTH - FINAL REPORT Normal [facility] Comment on above: Performed By: #### L IPID ####[address] [place] [address] BLOOD CULTURE, BACTERIAL PATIENT: KATHERINE JUDGE LOCATION: [address]#: [id number] : [birth year] AGE: SEX: F ORDERED BY: TOMMY MENDEZ: Blood COLLECTED: 07/26/17 14:34ANTIBIOTICS AT ESDRAS.: RECEIVED : 07/27/17 09:58SITE: ANTECUBITAL R E S U L T S BLOOD CULTURE, BACTERIAL FINAL 08/01/17 11:42 No Growth at 1 days No Growth at 2 days No Growth at 3 days No Growth at 4 days NO GROWTH - FINAL REPORT Normal [facility] Comment on above: Performed By: #### L IPID ####[address] [place] [address] BNPon 07-26-2017 Natriuretic peptide B mass conc (Bld) 67 pg/mL Normal 0 - 99 [facility] Comment on above: Result Comment: . <1 00 pg/mL - Heart failure rfflujdt291-422 pg/mL - Intermediate probability of acute heart. failure exacerbation. Correlate with clinical. context and patient history. >=300 pg/mL - Heart Failure likely. Correlate with clinical. context and patient history.BNP testing is performed using different testingmethodology at [facility] than at [facility]. Direct result comparisons shouldonly be made within the same method. Performed By: #### L IPID ####[address] [address] CBC AND DIFFERENTIALon 07-26 % AUTOMATED IMMATURE GRAN 0.5 % Normal 0.0 - 0.9 [facility] Comment on above: Result Comment: Perc ent differential counts (%) should be interpreted in the context of the absolute cell counts (cells/L). Performed By: #### L IPID ####[address] [address] % NEUTROPHIL 86.5 % Normal 40.0 - 80.0 [facility] Comment on above: Performed By: #### L IPID ####[address] [address] Basophils/100 WBC Auto (Bld) 0.02 x10E9/L Normal 0.00 - 0.10 [facility] Comment on above: Performed By: #### L IPID ####[address] [address] Basophils/100 WBC Auto (Bld) 0.2 % Normal 0.0 - 2.0 [facility] Comment on above: Performed By: #### L IPID ####[address] [address] Eosinophils Auto #/vol (Bld) 0.02 10*3/uL Normal 0.00 - 0.40 [facility] Comment on above: Performed By: #### L IPID ####[address] [address] Eosinophils/100 WBC Auto (Bld) 0.2 % Normal 0.0 - 6.0 [facility] Comment on above: Performed By: #### L IPID ####[address] [address] Lymphocytes Auto #/vol (Bld) 1.11 10*3/uL Normal 0.80 - 3.00 [facility] Comment on above: Performed By: #### L IPID ####[address] [place] [address] Lymphocytes/100 WBC Auto (Bld) 10.6 % Normal 13.0 - 44.0 [facility] Comment on above: Performed By: #### L IPID ####[address] [address] Monocytes Auto #/vol (Bld) 0.21 10*3/uL Normal 0.05 - 0.80 [facility] Comment on above: Performed By: #### L IPID ####[address] [address] Monocytes/100 WBC Auto (Bld) 2.0 % Normal 2.0 - 10.0 [facility] Comment on above: Performed By: #### L IPID ####[address] [address] Neutrophils Auto #/vol (Bld) 9.11 10*3/uL High 1.60 - 5.50 [facility] Comment on above: Performed By: #### L IPID ####[address] [address] Erythrocyte distribution width Auto Ratio (RBC) 13.3 % Normal 11.5 - 14.5 [facility] Comment on above: Performed By: #### L IPID ####[address] [address] Hematocrit Auto Volume Fraction (Bld) 34.2 % Low 36.0 - 46.0 [facility] Comment on above: Performed By: #### L IPID ####[address] [address] Hemoglobin mass conc (Bld) 11.0 g/dL Low 12.0 - 16.0 [facility] Comment on above: Performed By: #### L IPID ####[address] [address] MCHC Auto mass conc (RBC) 32.2 g/dL Normal 32.0 - 36.0 [facility] Comment on above: Performed By: #### L IPID ####[address] [address] MCV Auto Entitic volume (RBC) 103 fL High 80 - 100 [facility] Comment on above: Performed By: #### L IPID ####[facility] [place] [address] Platelets Auto #/vol (Bld) 317 10*3/uL Normal 150 - 450 [facility] Comment on above: Performed By: #### L IPID ####[facility] [place] [address] RBC Auto #/vol (Bld) 3.33 x10E12/L Low 4.00 - 5.20 [facility] Comment on above: Performed By: #### L IPID ####[facility] [place] [address] WBC Auto #/vol (Bld) 10.5 10*3/uL Normal 4.4 - 11.3 [facility] Comment on above: Performed By: #### L IPID ####[address] [place] [address] CHEST 1 VIEWon 07-26-2017 CHEST 1 VIEW [...] Electronically signed by: KAVON MANNING MD Normal [facility] COMPREHENSIVE PANELon 2017 Albumin mass conc 3.0 g/dL Low 3.4 - 5.0 [facility] Comment on above: Order Comment: Dr Perry parra notified, 07/26/2017 15:10 Performed By: #### L IPID ####[facility] [place] [address] ALP enzyme act/vol 65 U/L Normal 33 - 136 [facility] Comment on above: Order Comment: Dr Perry parra notified, 07/26/2017 15:10 Performed By: #### L IPID ####[address] [place] [address] ALT enzyme act/vol 24 U/L Normal 7 - 45 [facility] Comment on above: Order Comment: Dr Perry parra notified, 07/26/2017 15:10 Result Comment: Daniel ents treated with Sulfasalazine may generate falsely decreased results for ALT. Performed By: #### L IPID ####[address] [address] Anion gap 3 molar conc 13 mmol/L Normal 10 - 20 [facility] Comment on above: Order Comment: Dr Perry parra notified, 07/26/2017 15:10 Performed By: #### L IPID ####[address] [address] AST enzyme act/vol 22 U/L Normal 9 - 39 [facility] Comment on above: Order Comment: Dr Perry parra notified, 07/26/2017 15:10 Performed By: #### L IPID ####[address] [address] Bilirubin mass conc 0.4 mg/dL Normal 0.0 - 1.2 [facility] Comment on above: Order Comment: Dr Perry parar notified, 07/26/2017 15:10 Performed By: #### L IPID ####[address] [address] Calcium mass conc 13.2 mg/dL Critically high 8.6 - 10.3 [facility] Comment on above: Order Comment: Dr Perry parra notified, 07/26/2017 15:10 Result Comment: Dr Henrique oneal notified, 07/26/2017 15:10 Performed By: #### L IPID ####[address] [address] Chloride molar conc 98 mmol/L Normal 98 - 107 [facility] Comment on above: Order Comment: Dr Perry parra notified, 07/26/2017 15:10 Performed By: #### L IPID ####[id number] [place] [address] Creatinine mass conc 1.94 mg/dL High 0.50 - 1.05 [facility] Comment on above: Order Comment: Dr Perry parra notified, 07/26/2017 15:10 Performed By: #### L IPID ####[id number] [place] [address] GFR- AM. 30 mL/min/1.73m2 Abnormal >60 [facility] Comment on above: Order Comment: Dr Perry parra notified, 07/26/2017 15:10 Result Comment: CALC ULATIONS OF ESTIMATED GFR ARE PERFORMED USING THE MDRD STUDY EQUATION FOR THE IDMS-TRACEABLE CREATININE METHODS. CLIN CHEM 2007;53:766-72 Performed By: #### L IPID ####[address] [address] GFR-NON AM. 25 mL/min/1.73m2 Abnormal >60 [facility] Comment on above: Order Comment: Dr Perry parra notified, 07/26/2017 15:10 Performed By: #### L IPID ####[address] [place] [address] Glucose mass conc 111 mg/dL High 74 - 99 [facility] Comment on above: Order Comment: Dr Perry parra notified, 07/26/2017 15:10 Performed By: #### L IPID ####[address] [address] HCO3 molar conc (Bld) 30 mmol/L Normal 21 - 32 [facility] Comment on above: Order Comment: Dr Perry parra notified, 07/26/2017 15:10 Performed By: #### L IPID ####[address] [place] [address] Potassium molar conc 4.8 mmol/L Normal 3.5 - 5.3 [facility] Comment on above: Order Comment: Dr Perry parra notified, 07/26/2017 15:10 Performed By: #### L IPID ####[facility] [place] [address] Protein mass conc 6.6 g/dL Normal 6.4 - 8.2 [facility] Comment on above: Order Comment: Dr Perry parra notified, 07/26/2017 15:10 Performed By: #### L IPID ####[facility] [place] [address] Sodium molar conc 136 mmol/L Normal 136 - 145 [facility] Comment on above: Order Comment: Dr Perry parra notified, 07/26/2017 15:10 Performed By: #### L IPID ####[facility] [place] [address] Urea nitrogen mass conc 43 mg/dL High 6 - 23 [facility] Comment on above: Order Comment: Dr Perry parra notified, 07/26/2017 15:10 Performed By: #### L IPID ####[address] [place] [address] CT HEAD WO CONTRASTon 2017 CT HEAD [...] PROCESSElectronically signed by: ALTAGRACIA MELO MD Normal [facility] EMR ADDONon 07-26-2017 ADDON CONFIRMATION REQUEST REC'D Normal [facility] Comment on above: Performed By: #### L IPID ####[address] [place] [address] LACTATEon 07-26-2017 Lactate molar conc 1.1 mmol/L Normal 0.4 - 2.0 [facility] Comment on above: Result Comment: Hali puncture immediately after or during the administration of Metamizole may lead to falsely low results. Testing should be performed immediately prior to Metamizole dosing. Performed By: #### L IPID ####[address] [place] [address] LIPASEon 07-26-2017 Lipase enzyme act/vol 57 U/L Normal 9 - 82 [facility] Comment on above: Result Comment: Hali puncture immediately after or during the administration of Metamizole may lead to falsely low results. Testing should be performed immediately prior to Metamizole dosing. Performed By: #### L IPID ####[address] [place] [address] PT/INRon 07-26-2017 INR Coag RelTime (PPP) 1.2 {INR} High 0.9 - 1.1 [facility] Comment on above: Performed By: #### L IPID ####[address] [place] [address] Prothrombin time (PT) Coag time (PPP) 13.3 s High 9.8 - 12.7 [facility] Comment on above: Performed By: #### L IPID ####[address] [address] Patient Profile - Adult v2on 07-26-2017 Protein mass conc Profile:Initial Info :How to be AddressedAliceSpoken Language PreferredEnglish (1)Are you currently using the Personal Electronic Health Record or MYCAREnoStated Reason for Admission"I wasn't responding"[facility] departmentPatient Belongingsremains with patientPatient Belongings Remaining with Patientclothing; dental applianceMedications Brought to Hospitalno General Health:Weight in kg40.6 kilogram(s)Weight in lbs89.7 pound(s)Height in feet4 feetHeight in inch(es)Height in cm147.3 centimeter(s)BMI (kg/m2)18.712 square meterWeight [...] Arrangementsnursing homeResource/Environmental ConcernsnoneAnticipated Transition Toinpatient rehabilitation facility; 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 Allergies, Home [...] - Adult v2" 07/09/2017 10:08 AM Normal [facility] Provider Note - EDon 018 Protein mass conc Time Seen:? Time Mgte48-Klj-9684 13:49 Triage Vital Signs:? Triage Information Most [...] Signs:? Objective Information T PRBP SpO2O2(LPM) %FiO2 Nscnvu49-Xhj-7080 14:05:00-36.92830961/57 98 supplemental O2 Lab Results:? Results I have reviewed these laboratory results: Brain Natriuretic Peptide [Rwfyn15-Ehp-4419 15:10:00], Urinalysis [Drawn 26-Jul-2017 15:06:00], Urinalysis,Microscopic [Drawn 26-Jul-2017:06:00], Comprehensive Metabolic Panel [Silid63-Atf-5915 14:34:00], Complete Blood Count + Differential [Drawn 98-Qoi-041199:34:00], PT + INR, Plasma [Drawn 26-Jul-2017:34:00], RBC Morphology [Kcxpg25-Bfu-7347 14:34:00], Lipase, Serum [Drawn 26-Jul-2017 14:34:00], Lactate,Level [Drawn 26-Jul-2017 14:34:00], Troponin I, Serum [Drawn 17-Noo-696494:34:00].Brain Natriuretic Kasvvfc34-Eup-0487 15:10:00 ResultValueReference RangeBrain Natriuretic Mnezimj871 - 99 pg/mL Bcmlfyztnt80-Mhx-9575 15:06:00 ResultValueReference RangeColor, UrineYELLOW Reference Range: STRAW,YELLOWAppearance, UrineHAZYCLEARSpecific Dobbins, Urine1.0091.005 - 1.035pH, Urine6.05.0 - 8.0Protein, UrineNEGATIVENEGATIVE mg/dLGlucose, UrineNEGATIVENEGATIVE mg/dLBlood, UrineSMALL(1+) ANEGATIVEKetones, UrineNEGATIVENEGATIVE mg/dLBilirubin, UrineNEGATIVENEGATIVEUrobili nogen, Urine<2.00.0 - 1.9 mg/dLNitrite, UrineNEGATIVENEGATIVELeukocy te Esterase, UrineMODERATE(2+) ANEGATIVE Urinalysis, Erdlgdpfwqh25-Taq-3191 15:06:00 ResultValueReference RangeWhite Cells8 A0 - 5 /HPFRed Blood Cells2 A0 - 5 /HPFEpithelial Cells, Aksqawpp9Tzvaacjzab Cells, Transitional<1Bacteria, Urine4+ AMucousFEWHyaline Casts3+ AAmorphous Crystals1+ Comprehensive Metabolic Nbzyd21-Dtc-7682 14:34:00 ResultValueReference RangeLab Comment:Dr Vance notified, 07/26/2017 15:10Glucose, Rmxgs743 H74 - 99 mg/xKXB977898 - 145 mmol/LK4.83.5 - 5.3 mmol/MBU6579 - 107 mmol/LBicarbonate, Fykjc7129 - 32 mmol/LAnion Gap, Hqnxm5831 - 20 mmol/LBUN43 H6 - 23 mg/dLCREAT1.94 H0.50 - 1.05 mg/dLGFR-Non Muhkfulz87 A>60 mL/min/1.21a6YKN-Rsmcvud Bnasliiw71 A>60 mL/min/1.72y8Xojgtyv, Serum13.2 HH8.6 - 10.3 mg/dLALB3.0 L3.4 - 5.0 g/qFVGOK4746 - 136 U/LT Pro6.66.4 - 8.2 g/Rashi Bili0.40.0 - 1.2 mg/dLAlanine Aminotransferase, Kqdsw236 - 45 U/LAspartate Transaminase, Xocrq503 - 39 U/L Complete Blood Count + Uyryyjjmhozh92-Xvv-9038 14:34:00 ResultValueReference RangeWhite Blood Cell Count10.54.4 - 11.3 x10E9/LRed Blood Cell Count3.33 L4.00 - 5.20 x10E12/LHGB11.0 L12.0 - 16.0 g/dLHCT34.2 L36.0 - 46.0 %HSG503 H80 - 100 eMYFWZ67.232.0 - 36.0 g/rBAFU892423 - 450 x10E9/LRDW-CV13.311.5 - 14.5 %Neutrophil %86.540.0 - 80.0 %Immature Granulocytes %0.50.0 - 0.9 %Lymphocyte %10.613.0 - 44.0 %Monocyte %2.02.0 - 10.0 %Eosinophil %0.20.0 - 6.0 %Basophil %0.20.0 - 2.0 %Neutrophil Count9.11 H1.60 - 5.50 x10E9/LLymphocyte Count1.110.80 - 3.00 x10E9/LMonocyte Count0.210.05 - 0.80 x10E9/LEosinophil Count0.020.00 - 0.40 x10E9/LBasophil Count0.020.00 - 0.10 x10E9/L PT + INR, Vqbvlf27-Hxu-0383 14:34:00 ResultValueReference RangeProthrombin Time, Wvmjvg10.3 H9.8 - 12.7 secInternational Normalized Ratio, Plasma1.2 H0.9 - 1.1 RBC Lmecsiinsg39-Rfl-3385 14:34:00 ResultValueReference RangeRed Blood Cell MorphologySEE COMMENT NO SIGNIFICANT RBC ABNORMALITIES SEEN ONSMEAR REVIEW. Lipase, Dmvwo30-Ube-7776 14:34:00 ResultValueReference RangeLipase, Arukz054 - 82 U/L Lactate, Sopzv76-Mry-2869 14:34:00 ResultValueReference RangeLactate, Level1.10.4 - 2.0 mmol/L Troponin I, Xrllj18-Qbv-0418 14:34:00 ResultValueReference RangeTroponin I, Serum0.030.00 - 0.03 ng/mL Diagnostic Imaging Results Review: Radiology Results:? Results Impression: NO ACUTE INTRACRANIAL PROCESS CT Head without Contrast [Jul 26 2017 3:46PM] Impression: Mildly displaced fractures of the right 8th and 9th ribs. Otherwiseno definite active disease in the chest identified. Xray Chest 1 View [Jul 26 2017 3:26PM] EKG Results:? EKG Date/Uixi54-Vcv-3875 13:53? Rate59? CommentsSinus bradycardia with a right [...] vancomycin earlier fewweeks prior presenting from a shelter facility at the recommendation ofher primary care [...] "Triage - ED" 07/26/2017 2:05 PM Normal [facility] RED CELL MORPHOLOGYon 2017 RBC morphology finding Nom (Bld) SEE COMMENT Normal [facility] Comment on above: Result Comment: NO S IGNIFICANT RBC ABNORMALITIES SEEN ONSMEAR REVIEW. Performed By: #### L IPID ####[id number] [place] [address] TROPONIN Ion 07-26-2017 Troponin I.cardiac mass conc 0.03 ng/mL Normal 0.00 - 0.03 [facility] Comment on above: Result Comment: LESS THAN 0.04 NG/ML: NEGATIVEREPEAT TESTING IN FOUR TO SIX HOURSIF CLINICALLY INDICATED.0.04 - 0.5 NG/ML: CONSISTENT WITH POSSIBLECARDIAC DAMAGE AND POSSIBLE INCREASEDCLINICAL RISK.SERIAL MEASUREMENTS MAY HELP ASSESS EXTENT OFMYOCARDIAL DAMAGE.>0.5 NG/ML: CONSISTENT WITH CARDIAC DAMAGE,INCREASED CLINICAL RISK AND MYOCARDIALINFARCTION. SERIAL MEASUREMENTS MAY HELPASSESS EXTENT OF MYOCARDIAL DAMAGE..Note: Troponin I testing is performed using differenttesting methodology at [facility] than at [facility]. Direct result comparisons should onlybe made within the same method. Performed By: #### L IPID ####[facility] [place] [address] UA MICROSCOPICon 07-26-2017 AMORPHOUS CRYSTAL 1+ /HPF Normal [facility] Comment on above: Performed By: #### L IPID ####[facility] [place] [address] BACTERIA 4+ /HPF Abnormal [facility] Comment on above: Performed By: #### L IPID ####[facility] [place] [address] HYALINE CAST 3+ /LPF Abnormal [facility] Comment on above: Performed By: #### L IPID ####[facility] [facility] [place] [address] MUCUS FEW Normal [facility] Comment on above: Performed By: #### L IPID ####[facility] [facility] [place] [address] RBC 2 /HPF Abnormal 0-5 [facility] Comment on above: Performed By: #### L IPID ####[id number] [place] [address] SQUAMOUS EPITH. CELLS 1 /HPF Normal [facility] Comment on above: Performed By: #### L IPID ####[address] [place] [address] TRANSITIONAL EPITH.CELLS <1 Normal [facility] Comment on above: Performed By: #### L IPID ####[address] [place] [address] WBC 8 /HPF Abnormal 0-5 [facility] Comment on above: Performed By: #### L IPID ####[id number] [place] [address] URINALYSISon 07-26-2017 APPEARANCE HAZY Normal CLEAR [facility] Comment on above: Performed By: #### L IPID ####[facility] [place] [address] BILIRUBIN Negative Normal NEGATIVE [facility] Comment on above: Performed By: #### L IPID ####[facility] [place] [address] BLOOD SMALL(1+) Abnormal NEGATIVE [facility] Comment on above: Performed By: #### L IPID ####[facility] [place] [address] COLOR YELLOW Normal STRAW,YELL OW [facility] Comment on above: Performed By: #### L IPID ####[facility] [place] [address] GLUCOSE Negative Normal NEGATIVE [facility] Comment on above: Performed By: #### L IPID ####[address] [place] [address] KETONES Negative Normal NEGATIVE [facility] Comment on above: Performed By: #### L IPID ####[facility] [facility] [place] [address] LEUKOCYTE ESTERASE MODERATE(2+) Abnormal NEGATIVE [facility] Comment on above: Performed By: #### L IPID ####[facility] [facility] [place] [address] NITRITE Negative Normal NEGATIVE [facility] Comment on above: Performed By: #### L IPID ####[facility] [facility] [place] [address] pH 6.0 Normal 5.0 - 8.0 [facility] Comment on above: Performed By: #### L IPID ####[facility] [facility] [place] [address] Protein mass conc Negative Normal NEGATIVE [facility] Comment on above: Performed By: #### L IPID ####[facility] [facility] [place] [address] SPECIFIC GRAVITY 1.009 Normal 1.005 - 1.035 [facility] Comment on above: Performed By: #### L IPID ####[id number] [facility] [place] [address] UROBILINOGEN <2.0 Normal 0.0 - 1.9 [facility] Comment on above: Performed By: #### L IPID ####[id number] [facility] [place] [address] URINE CULTURE,BACTERIALon URINE CULTURE,BACTERIAL PATIENT: KATHERINE JUDGE LOCATION: [address]#: [id number] : [birth year] AGE: SEX: F ORDERED BY: TOMMY MENDEZ: URINE COLLECTED: 07/26/17 15:06ANTIBIOTICS AT ESDRAS.: RECEIVED : 07/27/17 09:18SITE: Straight Cath R E S U L T S URINE CULTURE,BACTERIAL FINAL 07/28/17 09:31 MULTIPLE ORGANISMS PRESENT, PROBABLE CONTAMINATION PLEASE REPEAT CULTURE. Normal [facility] Comment on above: Performed By: #### L IPID ####[address] [place] [address] URINE CULTURE,BACTERIAL PATIENT: KATHERINE JUDGE LOCATION: [address]#: [id number] : [birth year] AGE: SEX: F ORDERED BY: TOMMY MENDEZ: URINE COLLECTED: 07/26/17 15:06ANTIBIOTICS AT ESDRAS.: RECEIVED : 07/27/17 09:44SITE: R E S U L T S URINE CULTURE,BACTERIAL FINAL 07/28/17 09:24 NO SIGNIFICANT GROWTH. Normal [facility] Comment on above: Performed By: #### L IPID ####[address] [place] [address] BASIC METABOLIC PANELon Anion gap 3 molar conc 14 mmol/L Normal 10 - 20 [facility] Comment on above: Performed By: #### L IPID ####[address] [place] [address] Calcium mass conc 8.9 mg/dL Normal 8.6 - 10.3 [facility] Comment on above: Performed By: #### L IPID ####[address] [place] [address] Chloride molar conc 102 mmol/L Normal 98 - 107 [facility] Comment on above: Performed By: #### L IPID ####[address] [place] [address] Creatinine mass conc 0.97 mg/dL Normal 0.50 - 1.05 [facility] Comment on above: Performed By: #### L IPID ####[address] [place] [address] GFR- AM. 67 mL/min/1.73m2 Normal >60 [facility] Comment on above: Result Comment: CALC ULATIONS OF ESTIMATED GFR ARE PERFORMED USING THE MDRD STUDY EQUATION FOR THE IDMS-TRACEABLE CREATININE METHODS. CLIN CHEM 2007;53:766-72 Performed By: #### L IPID ####[address] [place] [address] GFR-NON AM. 55 mL/min/1.73m2 Abnormal >60 [facility] Comment on above: Performed By: #### L IPID ####[facility] [place] [address] Glucose mass conc 98 mg/dL Normal 74 - 99 [facility] Comment on above: Performed By: #### L IPID ####[facility] [place] [address] HCO3 molar conc (Bld) 22 mmol/L Normal 21 - 32 [facility] Comment on above: Performed By: #### L IPID ####[facility] [place] [address] Potassium molar conc 4.2 mmol/L Normal 3.5 - 5.3 [facility] Comment on above: Performed By: #### L IPID ####[facility] [place] [address] Sodium molar conc 134 mmol/L Low 136 - 145 [facility] Comment on above: Performed By: #### L IPID ####[facility] [place] [address] Urea nitrogen mass conc 31 mg/dL High 6 - 23 [facility] Comment on above: Performed By: #### L IPID ####[facility] [place] [address] Daily Progress Note-Samarao n 07-16-2017 Protein mass conc Service: Surgery Sub jective Data:KATHERINE JUDGE is a 82 year old Female who is Hospital Day # 8. MUCH LESS CONFUSED / CR ELEVATED. Objective Data: Objective Information:T PSTJTwP4Afchk06.35751183/669 2%Date/Time07/16 6: 6: 6: 6: 6:51Range(36.2C - [...] Updated: 16-Jul-2017 07:23 by Manny Arana) Normal [facility] BASIC METABOLIC PANELon Anion gap 3 molar conc 16 mmol/L Normal 10 - 20 [facility] Comment on above: Performed By: #### L ACT ####[address] [place] [address] Calcium mass conc 9.4 mg/dL Normal 8.6 - 10.3 [facility] Comment on above: Performed By: #### L ACT ####[address] [address] Chloride molar conc 99 mmol/L Normal 98 - 107 [facility] Comment on above: Performed By: #### L ACT ####[address] [address] Creatinine mass conc 1.42 mg/dL High 0.50 - 1.05 [facility] Comment on above: Performed By: #### L ACT ####[address] [address] GFR- AM. 42 mL/min/1.73m2 Abnormal >60 [facility] Comment on above: Result Comment: CALC ULATIONS OF ESTIMATED GFR ARE PERFORMED USING THE MDRD STUDY EQUATION FOR THE IDMS-TRACEABLE CREATININE METHODS. CLIN CHEM 2007;53:766-72 Performed By: #### L ACT ####[address] [address] GFR-NON AM. 35 mL/min/1.73m2 Abnormal >60 [facility] Comment on above: Performed By: #### L ACT ####[address] [address] Glucose mass conc 91 mg/dL Normal 74 - 99 [facility] Comment on above: Performed By: #### L ACT ####[address] [place] [address] HCO3 molar conc (Bld) 24 mmol/L Normal 21 - 32 [facility] Comment on above: Performed By: #### L ACT ####[address] [place] [address] Potassium molar conc 5.1 mmol/L Normal 3.5 - 5.3 [facility] Comment on above: Performed By: #### L ACT ####[address] [address] Sodium molar conc 134 mmol/L Low 136 - 145 [facility] Comment on above: Performed By: #### L ACT ####[address] [address] Urea nitrogen mass conc 27 mg/dL High 6 - 23 [facility] Comment on above: Performed By: #### L ACT ####[address] [address] CBCon 07-15-2017 Erythrocyte distribution width Auto Ratio (RBC) 15.1 % High 11.5 - 14.5 [facility] Comment on above: Performed By: #### L ACT ####[address] [address] Hematocrit Auto Volume Fraction (Bld) 32.1 % Low 36.0 - 46.0 [facility] Comment on above: Performed By: #### L ACT ####[address] [address] Hemoglobin mass conc (Bld) 10.5 g/dL Low 12.0 - 16.0 [facility] Comment on above: Performed By: #### L ACT ####[address] [address] MCHC Auto mass conc (RBC) 32.7 g/dL Normal 32.0 - 36.0 [facility] Comment on above: Performed By: #### L ACT ####[address] [address] MCV Auto Entitic volume (RBC) 105 fL High 80 - 100 [facility] Comment on above: Performed By: #### L ACT ####[address] [address] Platelets Auto #/vol (Bld) 715 10*3/uL High 150 - 450 [facility] Comment on above: Performed By: #### L ACT ####[address] [address] RBC Auto #/vol (Bld) 3.06 x10E12/L Low 4.00 - 5.20 [facility] Comment on above: Performed By: #### L ACT ####[address] [place] [address] WBC Auto #/vol (Bld) 12.9 10*3/uL High 4.4 - 11.3 [facility] Comment on above: Performed By: #### L ACT ####[facility] [place] [address] Daily Progress Note-Melly merino 07-15-2017 Protein mass conc Service: Surgery Sub jective Data:KATHERINE JUDGE is a 82 year old Female who is Hospital Day # 7. Patient only has complaint of sinus congestion. Reports abd pain is unchangedfrom yesterday. Denies fever, chills, nausea, vomiting. Passing gas, unsure ifshe passed stool. Denies feeling any pain at this time. Objective Data: Objective Information: T [id number]/749 2%Date/Time07/15 7: 7: 7: 7: 7:22Range(36C - [...] a Day11. Simvastatin: 40 mg Oral At Ywwdmau76. Vancomycin Oral Liquid: 125 mg Oral Every [...] to be discussed with Dr Melvina Hendrix, [facility] PGY-1#[id number] Electronic Signatures:Manny Arana) (Signed 15-Jul-2017 17:05)Authored: Signature/Cosignature/Attest ationCo-Signer: Service, Subjective Data, Objective Data, Assessment and Plan,Signature/Cosignature/A ttestationAftab Hendrix (Resident)) (Signed 15-Jul-2017 08:43)Authored: Service, Subjective Data, Objective Data, Assessment and Plan,Signature/Cosignature/A ttestation Last Updated: 15-Jul-2017 17:05 by Manny Arana) Normal [facility] Discharge Ewrfsyu6me 018 Protein mass conc Discharge Orders:Ant icipated Discharge Date:? 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 On the floor she experienced [...] mobilitytraining; gait training; neuromuscular re-education; stair training;strengthening.Kaye nt was found to be in satisfactory condition for discharge to [facility] facility for continued monitoring and care. It [...] Therapy Orders:? Occupational Therapy OrdersEval and Treat ([facility] 2times/day? Physical Therapy OrdersEval and Treat ([facility]) 2times/day Provider Follow Up:? Physician To Follow at Skilled/RehabAttending Physician at Skilled/Rehab Provider FINAL REVIEW of Orders:Final Review:? Final Review of Medication Reconciliation and Orders Completedby Physician? Reviewing ProviderAftab Hendrix DO (Resident) at 17-Jul-2017 10:39:47 Appointments:Follow-Up Appointment 01:? Physician/Dept/Seble Arana? Scheduled Date/Tssd35-Zuf-2926 13:45? [facility]? Phone [phone] Gold Form - Nursing Summary:Special Treatments/Procedures (in past 14 days):? Chemotherapyno? Dialysisno? IV Medicationno? Oxygen Therapyno? Transfusionsno? Feverno? Radiationno? Ventilatorno? Tracheostomyno? Suctioningno Nutrition:? Nutritional Statuspoor appetite Sensory/Comfort:? Visionadequate? Hearingadequate? Speechclear? Painyes? Pain Type6-7? Pain LocationGeneralized back pain? Whenfrequently? Pain Relieved Bymedication and positioning Elimination:? Bladdercontinent? Bowelcontinent? Last Bowel Lroiitra21-Axg-6214? Toiletingdependent Safety:? Siderailsyes? Siderails Number/Reason2? Restraintsno? Sitterno Medication/Hygiene/Mobility: ? Medication Administrationsupervision only Gold Form - Sheet Combining Operator Summary:Referral Information:? Referral [facility]? Referring Facility [facility]? Contact Tabitha Muller RNCC? Contact Phone [phone] Mental & Functional Status:? Mental/Behavioral Statusalert, cooperative? Functional Status Prior To AdmissionIndependent? Mental/Functional CommentIntermittent confusion Electronic Signatures:Ayse Martinez (RN) (Signed 16-Jul-2017 15:24)Authored: Manny Haley) (Signed 17-Jul-2017 11:26)Authored: Gold Form Orders, Provider FINAL REVIEW of Orders, Gold Form -Nursing SummaryCo-Signer: Discharge Orders, Gold Form Orders, Provider FINAL REVIEW ofOrders, Gold Form - Sheet Combining Operator SummaryAftab Hendrix (DO (Resident)) (Signed 17-Jul-2017 10:40)Authored: Discharge Orders, Hospital Course (Home Care/Gold Form), ProviderFINAL REVIEW of OrdersWanda Muller (CLIN COOR) (Signed 15-Jul-2017 15:51)Authored: Gold Form Orders, Gold Form - Sheet Combining Operator Summary Last Updated: 17-Jul-2017 11:26 by Manny Arana) [facility] Nutrition Therapy-Follow Upo n 07-15-2017 Nutrition Therapy-Follow Up Assessment Subjective/Objective:Note Type: Follow Up Note Authored by: Registered Dietitian NutritionistPager Number: [phone] Nutrition Note:The patient is a 82 year [...] stapledileocolonic anastomosis on 07/03/17. Was transferred to [facility]/Surg acute care.Chest xray on 07/06 showed worsening CHF; IV fluids held and IV Lasix started.Was found with + C.diff on 07/08, started on PO vancomycin. [facility] for rehab for [...] takes antibiotics; requested moisturizing oral rinse; Dr. Clinetacted via [facility] on 07/15. Per flowsheet, [...] 2 Abdomen Pain 3 Cholelithiasis: Onset Date: 22-Nwk-7499Wxbbd failure: Description: Heart failurePNEUMONIA:Diabetes mellitus: Description: Diabetes [...] bowel obstruction (disorder):Acute bowel obstruction: Onset Date: 82-Eyt-7597Zpvtz bowel obstruction: Objective Information: T [id number]/749 4%Date/Time07/15 14:486/6 16: 14: 16: 14:48Range(36.6C - 36.9C ) (67 - 82 ) (16 - 18 ) (93 - 160 )/ (58 - 74 ) (92%- 94% )Highest temp of 36.9 C was recorded at 07/15 14:48 Pain at Rest reported at 07/15 10:05: 4 Weights07/15 5:00: Weight in kg (Weight (kg)) 44.86/ 5:00: Weight in lbs ((lbs)) 98.7 ---- Intake and Output -----Mn/Dy/Year TimeIntakeOutputNetJun 2017 10:00 [id number] The Intake and Output Totals for the last 24 hours are:MesybaPcllhqDho380dzlfvr ll Height/Weight:Height in feet: 5 feetHeight in [...] (L) Nutrition Labs:Special Chemistry: 03-Jul-2017 10:15, Hemoglobin E4FRbeyxkamcj A1C, Level5.3 Diagnosis of Diabetes-Adults Non-Diabetic: < or = 5.6% Increased risk for developing diabetes: 5.7-6.4% Diagnostic of diabetes: > or = 6.5%. Monitoring of Diabetes Age (y) Therapeutic Goal (%) Adults: >18 <7.0 Pediatrics: 13-18 <7.5 7-12 <8.0 0- 6 7.5-8.5 [place] [employer]. Diabetes Care 33(S1), Feb 2009.Estimated Average Mmnfavy464 Current Active Medications/PN:Clopidogrel, Tablet (PLAVIX)DOSE = 75 mg Oral Daily, 47-Ffg-0783Laaerpfqns SubCutaneous, (LOVENOX)DOSE = 40 mg SubCutaneous Every 24 HoursNotes from Pharmacy: NOTE DOSAGE STRENGTH, 46-Bxf-5952Yybpzelfsb, Tablet (LASIX)DOSE = 40 mg Oral Daily, 19-Xzn-5803Jletnutsst Mononitrate Extended Release, Tablet, Extended Release (IMDUR)DOSE = 60 mg Oral Daily, 72-Moy-3434Bysrbbmkpq, Tablet (PRINIVIL, ZESTRIL)DOSE = 10 mg Oral Daily, 35-Bxr-2688Wifwzrdmer Tartrate, Tablet (LOPRESSOR)DOSE = 50 mg Oral Every 12 Hours, 42-Apt-5619Wgxzsaurbrlg, Enteric Coated Tablet (PROTONIX)DOSE = 40 mg Oral Daily, 26-Wyf-1472Slplckqtipx, Tablet (ZOCOR)DOSE = 40 mg Oral At Bedtime, 67-Aso-8750Acddbgqkzb Oral Liquid, DOSE = 125 mg Oral Every 6 Hours, 12-Xbx-0683Ylihxoddk Chloride Extended Release, Tablet, Extended ReleaseDOSE = 40 mEq Oral 2 Times a Day, 74-Qtn-8376Lbzbvohimh, Capsule (NEURONTIN)DOSE = 300 mg Oral 3 Times a Day, 85-Bit-1760Ooqfsb Substitute, SolutionDOSE = 15 mL Oral 4 Times a Day, 15-Jul-2017 Nutrition Orders:Oral Nutritional Supplements, RoutineResource BreezeFlavor Preference: York; Tinnie, 2 Times a DaySpecial Instructions: Please send Boost Artieze orange at breakfast and BoostBrejose angel york at dinner, 10-Mrh-1581Wuf-Stat 101, Oral - Administer as a scheduled medication. Pour packet into a30 ML medicine cup. Tube Feeding - Standard flush before and afteradministering 3 Times a Day Scsaxcr9YH (Oral), 51-Mmb-7582Hegg May Participate in Room Service WLeigh Braswell, YesOrder entered from Admission Screens., 90-Iji-2489Aopm, High Calorie; High Protein, 40-Eqw-6621Bslx Nutritional Supplements, RoutineBoost PuddingFlavor Preference: Vanilla, DailySpecial [...] 111 (H), likely secondary to stress07/13: H/H 11.3 (L), improving, was H/H 9.4/.9 (L). Nutrition Interventions:Individualized Nutrition Prescription Provided for: [...] 18:05 by Silvia Tyler ([place], DEEPA) Normal [facility] BASIC METABOLIC PANELon 06-0 Anion gap 3 molar conc 14 mmol/L Normal 10 - 20 [facility] Comment on above: Performed By: #### L ACT ####[address] [address] Calcium mass conc 8.9 mg/dL Normal 8.6 - 10.3 [facility] Comment on above: Performed By: #### L ACT ####[address] [address] Chloride molar conc 102 mmol/L Normal 98 - 107 [facility] Comment on above: Performed By: #### L ACT ####[address] [address] Creatinine mass conc 0.69 mg/dL Normal 0.50 - 1.05 [facility] Comment on above: Performed By: #### L ACT ####[address] [place] [address] GFR- AM. >60 Normal >60 [facility] Comment on above: Result Comment: CALC ULATIONS OF ESTIMATED GFR ARE PERFORMED USING THE MDRD STUDY EQUATION FOR THE IDMS-TRACEABLE CREATININE METHODS. CLIN CHEM 2007;53:766-72 Performed By: #### L ACT ####[address] [place] [address] GFR-NON AM. >60 Normal >60 [facility] Comment on above: Performed By: #### L ACT ####[address] [place] [address] Glucose mass conc 123 mg/dL High 74 - 99 [facility] Comment on above: Performed By: #### L ACT ####[address] [place] [address] HCO3 molar conc (Bld) 27 mmol/L Normal 21 - 32 [facility] Comment on above: Performed By: #### L ACT ####[address] [place] [address] Potassium molar conc 3.8 mmol/L Normal 3.5 - 5.3 [facility] Comment on above: Performed By: #### L ACT ####[address] [place] [address] Sodium molar conc 139 mmol/L Normal 136 - 145 [facility] Comment on above: Performed By: #### L ACT ####[address] [address] Urea nitrogen mass conc 14 mg/dL Normal 6 - 23 [facility] Comment on above: Performed By: #### L ACT ####[address] [address] CBCon 07-13-2017 Erythrocyte distribution width Auto Ratio (RBC) 14.9 % High 11.5 - 14.5 [facility] Comment on above: Performed By: #### L ACT ####[address] [address] Hematocrit Auto Volume Fraction (Bld) 31.3 % Low 36.0 - 46.0 [facility] Comment on above: Performed By: #### L ACT ####[address] [address] Hemoglobin mass conc (Bld) 11.0 g/dL Low 12.0 - 16.0 [facility] Comment on above: Performed By: #### L ACT ####[address] [address] MCHC Auto mass conc (RBC) 35.1 g/dL Normal 32.0 - 36.0 [facility] Comment on above: Performed By: #### L ACT ####[address] [address] MCV Auto Entitic volume (RBC) 100 fL Normal 80 - 100 [facility] Comment on above: Performed By: #### L ACT ####[facility] [place] [address] Platelets Auto #/vol (Bld) 614 10*3/uL High 150 - 450 [facility] Comment on above: Result Comment: Plat elet count verified by smear review. Performed By: #### L ACT ####[facility] [place] [address] RBC Auto #/vol (Bld) 3.14 x10E12/L Low 4.00 - 5.20 [facility] Comment on above: Performed By: #### L ACT ####[facility] [place] [address] WBC Auto #/vol (Bld) 11.0 10*3/uL Normal 4.4 - 11.3 [facility] Comment on above: Performed By: #### L ACT ####[facility] [place] [address] Daily Progress Note-Surgeryo n 07-13-2017 Protein mass conc Service: Surgery [...] have been stopped. Objective Data: Objective Information:T [id number]/799 6%Date/Time07/13 7: 7: 7: 7: 7:03Range(36.7C - [...] Updated: 13-Jul-2017 16:51 by Manny Arana) Normal [facility] GLUCOSE-POCTon 07-13-2017 Glucose mass conc 118 mg/dL High 74 - 99 [facility] Comment on above: Result Comment: This assay has not been validated for use with critically ill patients. Clinical correlation or lab draw is recommended. Performed By: #### L ACT ####[facility] [place] [address] RED CELL MORPHOLOGYon 2017 GIANT PLATELETS Few Normal [facility] Comment on above: Performed By: #### L ACT ####[facility] [place] [address] POLYCHROMASIA Mild Normal [facility] Comment on above: Performed By: #### L ACT ####[facility] [place] [address] RBC morphology finding Nom (Bld) See Below Normal [facility] Comment on above: Performed By: #### L ACT ####[facility] [place] [address] US ABD ALEXANDER F/Uon 07-13-2017 US ABD [...] ically signed by: CRYSTAL ROONEY MD Normal [facility] Daily Progress Note-Samarao n 07-12-2017 Protein mass conc Consult Type: subseq uent visit/care Service: Surgery Subjective Data:KATHERINE JUDGE is a 82 year old Female who is Hospital Day # 4. HAS BEEN INTERMITTENTLY CONFUSED / STRANGE ORAL MOUTH MOVEMENTS / ON GABAPENTINAND WELLBUTRIN WHICH WAS STOPPED / TAKING PO / HAVING BMS. Objective Data: Objective Information:T QSTFQqO0Abdsj10.32641402/779 0%Date/Time07/12 7: 7: 7: 7: 7:12Range(37C - 37.4C ) (80 - 101 [...] Updated: 12-Jul-2017 07:45 by Manny Arana) Normal [facility] BASIC METABOLIC PANELon 06-0 Anion gap 3 molar conc 11 mmol/L Normal 10 - 20 [facility] Comment on above: Performed By: #### C MP ####[address] [address] Calcium mass conc 7.5 mg/dL Low 8.6 - 10.3 [facility] Comment on above: Performed By: #### C MP ####[address] [place] [address] Chloride molar conc 101 mmol/L Normal 98 - 107 [facility] Comment on above: Performed By: #### C MP ####[address] [address] Creatinine mass conc 0.67 mg/dL Normal 0.50 - 1.05 [facility] Comment on above: Performed By: #### C MP ####[address] [place] [address] GFR- AM. >60 Normal >60 [facility] Comment on above: Result Comment: CALC ULATIONS OF ESTIMATED GFR ARE PERFORMED USING THE MDRD STUDY EQUATION FOR THE IDMS-TRACEABLE CREATININE METHODS. CLIN CHEM 2007;53:766-72 Performed By: #### C MP ####[address] [address] GFR-NON AM. >60 Normal >60 [facility] Comment on above: Performed By: #### C MP ####[address] [place] [address] Glucose mass conc 119 mg/dL High 74 - 99 [facility] Comment on above: Performed By: #### C MP ####[address] [place] [address] HCO3 molar conc (Bld) 28 mmol/L Normal 21 - 32 [facility] Comment on above: Performed By: #### C MP ####[address] [address] Potassium molar conc 3.2 mmol/L Low 3.5 - 5.3 [facility] Comment on above: Performed By: #### C MP ####[address] [address] Sodium molar conc 137 mmol/L Normal 136 - 145 [facility] Comment on above: Performed By: #### C MP ####[address] [address] Urea nitrogen mass conc 11 mg/dL Normal 6 - 23 [facility] Comment on above: Performed By: #### C MP ####[address] [address] CBCon 07-11-2017 Erythrocyte distribution width Auto Ratio (RBC) 14.3 % Normal 11.5 - 14.5 [facility] Comment on above: Performed By: #### C MP ####[address] [address] Hematocrit Auto Volume Fraction (Bld) 29.2 % Low 36.0 - 46.0 [facility] Comment on above: Performed By: #### C MP ####[address] [address] Hemoglobin mass conc (Bld) 9.9 g/dL Low 12.0 - 16.0 [facility] Comment on above: Performed By: #### C MP ####[address] [address] MCHC Auto mass conc (RBC) 33.9 g/dL Normal 32.0 - 36.0 [facility] Comment on above: Performed By: #### C MP ####[address] [address] MCV Auto Entitic volume (RBC) 101 fL High 80 - 100 [facility] Comment on above: Performed By: #### C MP ####[address] [place] [address] Nucleated RBC/100 WBC Ratio (Bld) 0.2 /100 WBC Abnormal 0.0-0.0 [facility] Comment on above: Performed By: #### C MP ####[address] [address] Platelets Auto #/vol (Bld) 351 10*3/uL Normal 150 - 450 [facility] Comment on above: Performed By: #### C MP ####[address] [address] RBC Auto #/vol (Bld) 2.89 x10E12/L Low 4.00 - 5.20 [facility] Comment on above: Performed By: #### C MP ####[address] [address] WBC Auto #/vol (Bld) 13.8 10*3/uL High 4.4 - 11.3 [facility] Comment on above: Performed By: #### C MP ####[address] [address] GLUCOSE-POCTon 07-11-2017 Glucose mass conc 113 mg/dL High 74 - 99 [facility] Comment on above: Result Comment: This assay has not been validated for use with critically ill patients. Clinical correlation or lab draw is recommended. Performed By: #### C MP ####[address] [place] [address] MAGNESIUMon 07-11-2017 Magnesium mass conc 1.62 mg/dL Normal 1.60 - 2.40 [facility] Comment on above: Performed By: #### C MP ####[address] [address] Daily Progress Note-Samarao n 07-10-2017 Protein mass conc Service: Surgery Sub jective Data:KATHERINE JUDGE is a 82 year old Female who is Hospital Day # 2. Additional Information:Patient has not had any further bowel movements despite positive C. dif, on POvancomycin. Nurse reports patient was confused again overnight pain medicationwas switched to Toradol and Percocet made as needed. Objective Data: Objective Information:T LTUIXvW4Fcyul61.86516326/819 3%Date/Time07/10 6:5507/10 6:5507/10 6:5507/10 6:5507/10 6:55Range(36C - [...] reviewed these laboratory results: Complete Blood Count [Zzmua40-Hin-9609 04:03:00], Basic Metabolic Panel [Drawn 09-Jul-2017 04:03:00],Magnesium, [...] Service, Subjective Data, Objective Data, Assessment and PlanValeri Altagracia (GLENDA) (Signed 10-Jul-2017 08:17)Authored: Service, Subjective Data, Objective Data, Assessment and Plan Last Updated: 10-Jul-2017 12:51 by Manny Arana) Normal [facility] Discharge Planning Noteon Discharge Planning Note Discharge Needs Assessment:? Discharge Planning Assessment [id number]? Discharge Planning Assessment Completed byJavier Muller RNCC Patient Learning:? Factors that Impact Ability to Learnnone(1) Other Factors:? Functional Screen: In the recent/past 2-4 weeks, patient or family havenoticedno issues that require a rehabilitation consult at this time(1) Discharge Needs:? [facility]:Discharge Plannin07/10/17 1453 - SWING [...] she will be ready to d/c with [facility] on July 17. Family isconcerned that she [...] 07/21/17 from 07/17/17. Som Chaudhari RNCC 07/15/17 4842 - Discussed plan of care in interdisciplinary rounds. Patientevaluated at bedside this morning with family. [facility]. Referral [...] Patient statedthat she has a membership with [employer], I call the company. Theambulance services is only for 911 calls. They do not provide communitytransportation. Discussed possible Community [facility] cost of $50 for ambulette and$5.00/mile following. Family is in agreement. Discharge plan: [place] . Javier Muller RNCC Electronic Signatures:Som Chaudhari (CLIN [place]) (Signed 14-Jul-2017 13:32)Authored: Discharge Planning Wanda Cheung ([place]IN [place]) (Signed 17-Jul-2017 11:49)Authored: Discharge Planning Note Last Updated: 17-Jul-2017 11:49 by Wanda Muller (CLIN [place]) References:1. Data Referenced From "Admission Risk Screen - Adult" 07/09/2017 09:59 AM Normal [facility] Nutrition Therapy-Assessment - -Swing Bedon 07-10-2017 Nutrition Therapy-Assessment - -Swing Bed Assessment Subjective/Objective:Note Type: Assessment -Swing Bed Note Authored by: Registered Dietitian NutritionistPager Number: [phone] Nutrition Note:The patient is a 82 year [...] stapledileocolonic anastomosis on 07/03/17. Was transferred to [facility]/Surg acute care.Chest xray on 07/06 showed worsening CHF; IV fluids held and IV Lasix started.Was found with + C.diff on 07/08, started on PO vancomycin. [facility] for rehab for [...] bowel obstruction (disorder):Acute bowel obstruction: Onset Date: 87-Xcz-8586Ztjwcmzkivw abdominal pain (finding): Chronic:Fluid overload pulmonary edema:Clostridium difficile infection:Diarrhea: Other Dx/Proc:Gastrointestinal bleeding: Description: Gastrointestinal bleeding1 Colitis, 2 Abdomen Pain 3 Cholelithiasis: Onset Date: 64-Nkb-6349Wxrlt failure: Description: Heart failurePNEUMONIA:Diabetes mellitus: Description: Diabetes [...] bowel obstruction (disorder):Acute bowel obstruction: Onset Date: 16-Vis-8463Cwjcu bowel obstruction: Objective Information: T BINJGsS0Rczmw27.59094570/689 3%Date/Time07/10 14: 14: 14: 14: 14:18Range(36C - 37.3C ) (80 - 85 ) (16 - 20 ) (108 - 146 )/ (68 - 81 ) (93% -97% )Highest temp of 37.3 C was recorded at 07/10 6:55 Pain at Rest reported at 07/10 15:25: 8 Weights07/10 16:10: Weight in lbs ((lbs)) 120.461 16:10: BMI (kg/m2) (BMI (kg/m2)) 22.0386 5:00: Weight in kg (Weight (kg)) 49 ---- Intake and Output -----Mn/Dy/Year TimeIntakeOutputNetCarteret Health Care 2017 2:00 [id number] 2017 6:00 cv193Qhd 2017 10:00 pm000 Height/Weight:Height in feet: 5 feetHeight in inches: 2 inch(es)Height in cm: 157.4 centimeter(s)Weight in lbs: 108 pound(s)Weight (kg): 49BMI (kg/m2): 19.778 square meterDBW (kg): 57.3%DBW: 86Weight history/ % weight change: DBW-126 lbs for BMI 23 in adult >65 yearsWeight History:UBW: 50 to 50.1 kg (self reported)-current wt is 97%-98% UBW)5/31/18: 47.8 kg (? accuracy of weight loss [...] 14:51 Nutrition Labs:Special Chemistry: 03-Jul-2017 10:15, Hemoglobin P1FLslbvyerch A1C, Level5.3 Diagnosis of Diabetes-Adults Non-Diabetic: < or = 5.6% Increased risk for developing diabetes: 5.7-6.4% Diagnostic of diabetes: > or = 6.5%. Monitoring of Diabetes Age (y) Therapeutic Goal (%) Adults: >18 <7.0 Pediatrics: 13-18 <7.5 7-12 <8.0 0- 6 7.5-8.5 [place] [employer]. Diabetes Care 33(S1), Feb 2009.Estimated Average Gcadojq867 Current Active Medications/PN:buPROPion Extended Release (24 hour), Tablet, Extended Release (WELLBUTRINXL)DOSE = 150 mg Oral Every 24 Hours, 04-Avj-7929Ztqioqrnxku, Tablet (PLAVIX)DOSE = 75 mg Oral Daily, 11-Bui-4735Gyoujauork SubCutaneous, (LOVENOX)DOSE = 40 mg SubCutaneous Every 24 HoursNotes from Pharmacy: NOTE DOSAGE STRENGTH, 17-Lpq-8903Gvovapomrn, Tablet (LASIX)DOSE = 40 mg Oral Daily, 86-Hhn-1391Uuavzbnymg, Capsule (NEURONTIN)DOSE = 800 mg Oral 3 Times a Day, 61-Exm-1703Qveajoqslo Mononitrate Extended Release, Tablet, Extended Release (IMDUR)DOSE = 60 mg Oral Daily, 53-Jzd-7298Ehppzgyiws, Tablet (PRINIVIL, ZESTRIL)DOSE = 10 mg Oral Daily, 74-Zsf-3390Winpjdwqod Tartrate, Tablet (LOPRESSOR)DOSE = 50 mg Oral Every 12 Hours, 95-Dvq-6768Kbxyrcqxtqw Injectable, (ZOFRAN)DOSE = 4 mg IntraVenous Push Every 6 Hours, PRN Nausea & Vomiting, 05-Way-6048Yomelvfyms, Tablet (DITROPAN)DOSE = 5 mg Oral 3 Times a Day, 57-Fix-0315ttnUMIQTN 5 mg - Acetaminophen 325 mg, Tablet (PERCOCET)DOSE = 1 tablet(s) Oral Every 4 Hours, PRN Pain - Mild (1-3), 89-Cmd-0103Rgxsjelfjgfl, Enteric Coated Tablet (PROTONIX)DOSE = 40 mg Oral Daily, 02-Fba-4332Ehntmbylv Chloride Powder Packet, (K-SHAUN)DOSE = 40 mEq Oral Daily, 12-Lnt-1255Ktvkdwaxwju, Tablet (ZOCOR)DOSE = 40 mg Oral At Bedtime, 96-Kig-7534Kssuhx Chloride 0.9% Injectable Flush, via Triple Lumen - Arrow BrandVolume = 10 mL IntraVenous Flush Every 8 Hours and as Needed, 97-Dsg-6955qatMPSsi, Tablet (ULTRAM)DOSE = 50 mg Oral Every 6 Hours, PRN Pain - Mod (4-6), 86-Wau-0468Nxemjopmlb, CapsuleDOSE = 125 mg Oral Every 6 Hours, 09-Jul-2017 Nutrition Orders:Oral Nutritional Supplements, RoutineResource BreezeFlavor Preference: York; Tinnie, 2 Times a DaySpecial Instructions: Please send Boost Sale orange at breakfast and Ainsley york at dinner, 02-Qru-8013Ldy-Stat 101, Oral - Administer as a scheduled medication. Pour packet into a30 ML medicine cup. Tube Feeding - Standard flush before and afteradministering 3 Times a Day Pkorfru3GW (Oral), 15-Iez-4196Vadq May Participate in Room Service WLeigh Braswell, YesOrder entered from Admission Screens., 36-Mok-8654Zaeo, High Calorie; High Protein, 10-Jul-2017 Food/Nutrition Related [...] fair Electronic Signatures:Silvia Tyler (DEEPA HENRIQUEZ) (Signed 10-Jul-2017 17:38)Authored: Assessment Subjective/Objective, Nutrition Focused PhysicalFindings, Estimated Needs, Nutrition Diagnosis, Nutrition Interventions,Nutrition Goals, Nutrition Recommendations, Dietitian Monitoring and EvaluationPlan, Diet Education Last Updated: 10-Jul-2017 17:38 by Silvia Tyler ([place], DEEPA) Normal [facility] Admission Risk Screen - Adul ton [...] Learning Preferencesverbal instruction? Cultural Considerationsnone? Developmental Considerationsnone? Christianity Considerationsnone Learning Assessment (Other Learner):? Other learner [...] Spiritual Screen:? Are there any cultural, spiritual, catholic practices/values/needs that areimportant for us to know?no CAGE:Is this an injured [place] a [place] [place] no Vaccinations:Vaccination - Influenza Vaccination Screen:? Is [...] Last Updated: 09-Jul-2017 10:07 by Antoinette Hernandez (CINTHYA) Normal [facility] BASIC METABOLIC PANELon 05-3 Anion gap 3 molar conc 9 mmol/L Low 10 - 20 [facility] Comment on above: Performed By: #### L IPAS ####[address] [place] [address] Calcium mass conc 7.5 mg/dL Low 8.6 - 10.3 [facility] Comment on above: Performed By: #### L IPAS ####[address] [place] [address] Chloride molar conc 101 mmol/L Normal 98 - 107 [facility] Comment on above: Performed By: #### L IPAS ####[address] [place] [address] Creatinine mass conc 0.66 mg/dL Normal 0.50 - 1.05 [facility] Comment on above: Performed By: #### L IPAS ####[address] [place] [address] GFR- AM. >60 Normal >60 [facility] Comment on above: Result Comment: CALC ULATIONS OF ESTIMATED GFR ARE PERFORMED USING THE MDRD STUDY EQUATION FOR THE IDMS-TRACEABLE CREATININE METHODS. CLIN CHEM 2007;53:766-72 Performed By: #### L IPAS ####[address] [place] [address] GFR-NON AM. >60 Normal >60 [facility] Comment on above: Performed By: #### L IPAS ####[address] [place] [address] Glucose mass conc 111 mg/dL High 74 - 99 [facility] Comment on above: Performed By: #### L IPAS ####[address] [address] HCO3 molar conc (Bld) 31 mmol/L Normal 21 - 32 [facility] Comment on above: Performed By: #### L IPAS ####[address] [address] Potassium molar conc 3.3 mmol/L Low 3.5 - 5.3 [facility] Comment on above: Performed By: #### L IPAS ####[address] [address] Sodium molar conc 138 mmol/L Normal 136 - 145 [facility] Comment on above: Performed By: #### L IPAS ####[address] [address] Urea nitrogen mass conc 11 mg/dL Normal 6 - 23 [facility] Comment on above: Performed By: #### L IPAS ####[address] [address] CBCon 07-09-2017 Erythrocyte distribution width Auto Ratio (RBC) 13.7 % Normal 11.5 - 14.5 [facility] Comment on above: Performed By: #### L IPAS ####[address] [address] Hematocrit Auto Volume Fraction (Bld) 27.9 % Low 36.0 - 46.0 [facility] Comment on above: Performed By: #### L IPAS ####[address] [address] Hemoglobin mass conc (Bld) 9.4 g/dL Low 12.0 - 16.0 [facility] Comment on above: Performed By: #### L IPAS ####[address] [address] MCHC Auto mass conc (RBC) 33.7 g/dL Normal 32.0 - 36.0 [facility] Comment on above: Performed By: #### L IPAS ####[address] [address] MCV Auto Entitic volume (RBC) 100 fL Normal 80 - 100 [facility] Comment on above: Performed By: #### L IPAS ####[place] [address] Nucleated RBC/100 WBC Ratio (Bld) 0.2 /100 WBC Abnormal 0.0-0.0 [facility] Comment on above: Performed By: #### L IPAS ####[address] [address] Platelets Auto #/vol (Bld) 274 10*3/uL Normal 150 - 450 [facility] Comment on above: Performed By: #### L IPAS ####[place] [address] RBC Auto #/vol (Bld) 2.79 x10E12/L Low 4.00 - 5.20 [facility] Comment on above: Performed By: #### L IPAS ####[place] [address] WBC Auto #/vol (Bld) 12.9 10*3/uL High 4.4 - 11.3 [facility] Comment on above: Performed By: #### L IPAS ####[id number] CLOST.DIFF.TOXIN,PCRon 07-09 CLOST.DIFF.TOXIN,PCR DETECTED Abnormal Not Detected [facility] Comment on above: Order Comment: +CDIF [...] 07/09/2017 14:51 Performed By: #### L IPAS ####[address] [place] [address] History and Physicalon 07-09 History and Physical History of Present Illness:HPI:Patient is an 82 y/o female with PMHx of SBO and (s/p ELAP in February 2012),known large hiatal hernia, small vessel colon disease, CAD s/p CABG, diastolicCHF, HTN, HLD, depression, and chronic pain, who presented to the [facility] ED on 07/02/17 with sudden onset of [...] received Lovenox for DVT prophylaxis. She received efudsiguws73cu for acute exacerbation of diastolic CHF. Potassium [...] bowel obstruction (disorder):Acute bowel obstruction: Onset Date: 98-Ddo-1531Gvwtg bowel obstruction:Acute bowel obstruction:Generalized abdominal pain (finding): [...] laboratory results: Complete Blood Count Trending View [id number]-Yrb-1447 04:03:00 08-Jul-2017 07:37:00 07-Jul-2017 04:53:00 06-Jul-2017 08:19:00White Blood Cell Count12.9 H 8.8 5.2 3.5 LNucleated Erythrocyte Count0.2 A 0.2 A Red Blood Cell Count2.79 L 2.65 L 2.49 L 2.60 LHGB9.4 L 9.0 L 8.6 L 9.0 LHCT27.9 L 26.5 L 25.0 L 26.2 LHNM840 100 100 101 HMCHC33.7 34.0 34.4 34.2AWJ445 245 197 190RDW-CV13.7 13.6 13.2 13.7 Basic Metabolic Panel Trending View Kntwoz33-Qwj-1124 04:03:00 08-Jul-2017 07:37:00 07-Jul-2017 04:53:00Glucose, Bmrqb994 H 108 H 105 VCA431 137 140K3.3 L 3.2 L 2.6 NIOZ132 98 98Bicarbonate, Serum31 32 34 HAnion Gap, Serum9 L 10 83EJI57 11 71QGNLT7.66 0.66 0.62GFR-Non >60 >60 >60GFR->60 >60 >60Calcium, Serum7.5 L 7.6 L 7.6 LLab Comment: Samples collected at 0554 07/08/17. Potassium Called- RB Christen Griffin on Med Surg, 07/07/2017 05:38 Magnesium, Serum Trending View Wlzfae82-Ojt-1474 04:03:00 08-Jul-2017 05:30:00 07-Jul-2017 04:53:00Magnesium, Serum1.51 L 1.96 1.48 L Blood Gas, Arterial Trending View Wxiyci65-Ihk-4784 05:10:00 06-Jul-2017 15:15:00pH, Arterial7.54 H 7.51 HpCO2, Wvvwtana42 40pO2, Oosoarsg85 L 51 LPatient-Livzzcdphqz75.0 37.3OIY883 28SO2, Pxzvwwsa94 93 LBase Excess-Blood11.5 H 8.2 HBicarbonate, Calculated, Ixbukldw31.1 H 31.9 HSite of Arterial PunctureLEFT BRACHIAL LEFT BRACHIALAllen's Test (Collateral Circulation)NON-APPLICABLE NON-APPLICABLE Urinalysis 06-Jul-2017 12:08:00 ResultValueColor, Urine YELLOW Reference Range: STRAW,YELLOWAppearance, Urine CLEARSpecific Dobbins, Urine 1.008pH, Urine 5.0Protein, Urine NEGATIVEGlucose, Urine [...] 22.2 cm2LA Area A2C: 19.3 cm2LA Major [place] A4C: 5.9 cmLA [place] A2C: 5.4 cmLA Volume Index: 40.5 ml/m2RA VOLUME BY A/L METHOD: Normal Ranges:RA Vol A4C: 17.8 ml (8.3-19.5ml)RA Vol Index A4C: 11.5 ml/m2RA Area A4C: 9.6 cm2RA [place] A4C: 4.4 cmM-MODE MEASUREMENTS: Normal Ranges:Ao Root: [...] and chronic pain, who presented to the [facility] ED on 07/02/17 with sudden onset of [...] electrolyte replacement. # Physical Deconditioning- Admitted for shelter care, rehabilitation- PT/OT # S/p R Colectomy- Pain management: Continue home percocet q4h PRN mild pain, ordered Yaxekdzsi6y PRN for moderate pain. D/C'd morphine and [...] Prophylaxis: Lovenox 40mg subcutaneous q24h Mike Olson DO[facility], PGY-1 Signatures/Attestation/Certi fication:Attending Provider ? Inpatient Certification StatementI certify that SNFservices are required to be given on an inpatient basis because of the abovenamed patient's need for shelter care on a continuing basis for thecondition(s) [...] Updated: 09-Jul-2017 14:37 by Manny Arana) Normal [facility] MAGNESIUMon 07-09-2017 Magnesium mass conc 1.51 mg/dL Low 1.60 - 2.40 [facility] Comment on above: Performed By: #### L IPAS ####[address] [place] [address] Patient Profile - Adult v2on 07-09-2017 Protein mass conc Profile:Initial Info :How to be AddressedNaomi(1)Spoken Language PreferredEnglish (1)Are you currently using the Personal Electronic Health Record or [employer](1)Stated Reason for Admissioninto muscle sickArrived [facility] carePatient BelongingsnoneMedications Brought to [facility]:Weight in kg47.7 kilogram(s)Weight in vqp583.1 pound(s)Height in feet5 feetHeight in inches5 inch(es)Height in cm165.1 centimeter(s)BMI (kg/m2)17.499 square meterWeight Methodactual (measured)Scale TypebedHeight Methodstated [facility] Based Care:How would you like to participate [...] Active? Restoril: Drug, Confusion, Active Electronic Signatures:Antoinette Hernandez) (Signed 09-Jul-2017 10:29)Authored: Profile, Additional Information Last Updated: 09-Jul-2017 10:29 by Antoinette Hernandez) References:1. Data Referenced From "Patient Profile - Adult v2" 07/02/2017 8:49 PM Normal [facility] BASIC METABOLIC PANELon 05- Anion gap 3 molar conc 10 mmol/L Normal 10 - 20 [facility] Comment on above: Order Comment: Sampl es collected at [facility] 07/08/17. Performed By: #### U AMIC ####[address] [place] [address] Calcium mass conc 7.6 mg/dL Low 8.6 - 10.3 [facility] Comment on above: Order Comment: Sampl es collected at [facility] 07/08/17. Performed By: #### U AMIC ####[address] [place] [address] Chloride molar conc 98 mmol/L Normal 98 - 107 [facility] Comment on above: Order Comment: Sampl es collected at [facility] 07/08/17. Performed By: #### U AMIC ####[address] [address] Creatinine mass conc 0.66 mg/dL Normal 0.50 - 1.05 [facility] Comment on above: Order Comment: Sampl es collected at [facility] 07/08/17. Performed By: #### U AMIC ####[address] [address] GFR- AM. >60 Normal >60 [facility] Comment on above: Order Comment: Sampl es collected at [facility] 07/08/17. Result Comment: CALC ULATIONS OF ESTIMATED GFR ARE PERFORMED USING THE MDRD STUDY EQUATION FOR THE IDMS-TRACEABLE CREATININE METHODS. CLIN CHEM 2007;53:766-72 Performed By: #### U AMIC ####[address] [place] [address] GFR-NON AM. >60 Normal >60 [facility] Comment on above: Order Comment: Sampl es collected at [facility] 07/08/17. Performed By: #### U AMIC ####[address] [place] [address] Glucose mass conc 108 mg/dL High 74 - 99 [facility] Comment on above: Order Comment: Sampl es collected at [facility] 07/08/17. Performed By: #### U AMIC ####[address] [address] HCO3 molar conc (Bld) 32 mmol/L Normal 21 - 32 [facility] Comment on above: Order Comment: Sampl es collected at [facility] 07/08/17. Performed By: #### U AMIC ####[address] [address] Potassium molar conc 3.2 mmol/L Low 3.5 - 5.3 [facility] Comment on above: Order Comment: Sampl es collected at [facility] 07/08/17. Performed By: #### U AMIC ####[address] [address] Sodium molar conc 137 mmol/L Normal 136 - 145 [facility] Comment on above: Order Comment: Sampl es collected at [facility] 07/08/17. Performed By: #### U AMIC ####[address] [address] Urea nitrogen mass conc 11 mg/dL Normal 6 - 23 [facility] Comment on above: Order Comment: Sampl es collected at [facility] 07/08/17. Performed By: #### U AMIC ####[address] [address] CBCon 07-08-2017 Erythrocyte distribution width Auto Ratio (RBC) 13.6 % Normal 11.5 - 14.5 [facility] Comment on above: Performed By: #### U AMIC ####[address] [address] Hematocrit Auto Volume Fraction (Bld) 26.5 % Low 36.0 - 46.0 [facility] Comment on above: Performed By: #### U AMIC ####[address] [address] Hemoglobin mass conc (Bld) 9.0 g/dL Low 12.0 - 16.0 [facility] Comment on above: Performed By: #### U AMIC ####[address] [address] MCHC Auto mass conc (RBC) 34.0 g/dL Normal 32.0 - 36.0 [facility] Comment on above: Performed By: #### U AMIC ####[facility] [place] [address] MCV Auto Entitic volume (RBC) 100 fL Normal 80 - 100 [facility] Comment on above: Performed By: #### U AMIC ####[facility] [place] [address] Nucleated RBC/100 WBC Ratio (Bld) 0.2 /100 WBC Abnormal 0.0-0.0 [facility] Comment on above: Performed By: #### U AMIC ####[address] [place] [address] Platelets Auto #/vol (Bld) 245 10*3/uL Normal 150 - 450 [facility] Comment on above: Performed By: #### U AMIC ####[address] [place] [address] RBC Auto #/vol (Bld) 2.65 x10E12/L Low 4.00 - 5.20 [facility] Comment on above: Performed By: #### U AMIC ####[address] [place] [address] WBC Auto #/vol (Bld) 8.8 10*3/uL Normal 4.4 - 11.3 [facility] Comment on above: Performed By: #### U AMIC ####[address] [place] [address] Daily Progress Note-Surgeryo n 07-08-2017 Protein mass [...] brown loose stoolovernight. Objective Data: Objective Information:T VTKXFoB8Vggor41.41073732/729 6%Date/Time07/08 6: 6:405/30 6:405/30 6:405/30 6:40Range(36.4C - 37.2C ) (78 - 94 [...] reviewed these laboratory results: Basic Metabolic Panel [[id number] 07:37:00]. Assessment and Plan: Admitting Dx:Cecal volvulus: [...] Updated: 08-Jul-2017 12:42 by Manny Arana) Normal [facility] HEMOGLOBIN A1Con 07-08-2017 Glucose mass conc 105 mg/dL Normal [facility] Comment on above: Performed By: #### L IPAS ####[address] [place] [address] Hemoglobin A1c/Hemoglobin.total mass fraction (Bld) 5.3 % Normal [facility] Comment on above: Result Comment: Diag nosis of Diabetes-Adults Non-Diabetic: < or = 5.6% Increased risk for developing diabetes: 5.7-6.4% Diagnostic of diabetes: > or = 6.5%. Monitoring of Diabetes Age (y) Therapeutic Goal (%) Adults: >18 <7.0 Pediatrics: 13-18 <7.5 7-12 <8.0 0- 6 7.5-8.5 [place] [employer]. Diabetes Care 33(S1), Feb 2009. Performed By: #### L IPAS ####[address] [place] [address] MAGNESIUMon 07-08-2017 Magnesium mass conc 1.96 mg/dL Normal 1.60 - 2.40 [facility] Comment on above: Performed By: #### U AMIC ####[address] [place] [address] ARTERIAL BLOOD GASon 018 JACKIE'S TEST[COLLATERAL CIRCULATION] NON-APPLICABLE Normal [facility] Comment on above: Performed By: #### U AMIC ####[facility] [place] [address] SITE OF ARTERIAL PUNCTURE LEFT BRACHIAL Normal [facility] Comment on above: Performed By: #### U AMIC ####[facility] [place] [address] BASE EXCESS-BLOOD 11.5 mmol/L High -2.0 - 3.0 [facility] Comment on above: Performed By: #### U AMIC ####[address] [address] FIO2 36 % Normal [facility] Comment on above: Performed By: #### U AMIC ####[address] [address] Oxygen ppres (BldA) 70 mm[Hg] Low 85 - 95 [facility] Comment on above: Performed By: #### U AMIC ####[address] [address] PCO2 41 mmHg Normal 38 - 42 [facility] Comment on above: Performed By: #### U AMIC ####[address] [address] RBC Auto #/vol (Bld) 35.1 mmol/L High 22.0 - 26.0 [facility] Comment on above: Performed By: #### U AMIC ####[address] [address] SO2 97 % Normal 94 - 100 [facility] Comment on above: Performed By: #### U AMIC ####[address] [address] pH (Bld) 7.54 [pH] High 7.38 - 7.42 [facility] Comment on above: Performed By: #### U AMIC ####[address] [address] BASIC METABOLIC PANELon 05-2 Anion gap 3 molar conc 11 mmol/L Normal 10 - 20 [facility] Comment on above: Order Comment: Josselyn dowd Called- RB Christen Griffin on Med Surg, 07/07/2017 05:38 Performed By: #### U A ####[address] [address] Calcium mass conc 7.6 mg/dL Low 8.6 - 10.3 [facility] Comment on above: Order Comment: Josselyn dowd Called- RB toJennifer Elias on Med Surg, 07/07/2017 05:38 Performed By: #### U A ####[address] [address] Chloride molar conc 98 mmol/L Normal 98 - 107 [facility] Comment on above: Order Comment: Josselyn correiaum Called- RB toJennifer Elias on Med Surg, 07/07/2017 05:38 Performed By: #### U A ####[address] [address] Creatinine mass conc 0.62 mg/dL Normal 0.50 - 1.05 [facility] Comment on above: Order Comment: Josselyn dowd Called- RB toJennifer Elias on Med Surg, 07/07/2017 05:38 Performed By: #### U A ####[address] [address] GFR- AM. >60 Normal >60 [facility] Comment on above: Order Comment: Josselyn dowd Called- RB toJennifer Elias on Med Surg, 07/07/2017 05:38 Result Comment: CALC ULATIONS OF ESTIMATED GFR ARE PERFORMED USING THE MDRD STUDY EQUATION FOR THE IDMS-TRACEABLE CREATININE METHODS. CLIN CHEM 2007;53:766-72 Performed By: #### U A ####[address] [address] GFR-NON AM. >60 Normal >60 [facility] Comment on above: Order Comment: Josselyn correiaum Called- RB toJennifer Elias on Med Surg, 07/07/2017 05:38 Performed By: #### U A ####[address] [address] Glucose mass conc 105 mg/dL High 74 - 99 [facility] Comment on above: Order Comment: Josselyn correiaum Called- RB toJennifer Elias on Med Surg, 07/07/2017 05:38 Performed By: #### U A ####[address] [address] HCO3 molar conc (Bld) 34 mmol/L High 21 - 32 [facility] Comment on above: Order Comment: Josselyn dowd Called- RB toJennifer Elias on Med Surg, 07/07/2017 05:38 Performed By: #### U A ####[id number] Potassium molar conc 2.6 mmol/L Critically low 3.5 - 5.3 [facility] Comment on above: Order Comment: Josselyn sium Called- RB toJennifer Elias on Med Surg, 07/07/2017 05:38 Result Comment: Hafsa ssium Called- RB toJennifer Elias on Med Surg, 07/07/2017 05:38 Performed By: #### U A ####[address] [address] Sodium molar conc 140 mmol/L Normal 136 - 145 [facility] Comment on above: Order Comment: Josselyn correiaum Called- RB toJennifer Elias on Med Surg, 07/07/2017 05:38 Performed By: #### U A ####[place] [address] Urea nitrogen mass conc 11 mg/dL Normal 6 - 23 [facility] Comment on above: Order Comment: Josselyn correiaum Called- RB toJennifer Elias on Med Surg, 07/07/2017 05:38 Performed By: #### U A ####[address] [address] CBCon 07-07-2017 Erythrocyte distribution width Auto Ratio (RBC) 13.2 % Normal 11.5 - 14.5 [facility] Comment on above: Performed By: #### U A ####[address] [address] Hematocrit Auto Volume Fraction (Bld) 25.0 % Low 36.0 - 46.0 [facility] Comment on above: Performed By: #### U A ####[address] [address] Hemoglobin mass conc (Bld) 8.6 g/dL Low 12.0 - 16.0 [facility] Comment on above: Performed By: #### U A ####[address] [place] [address] MCHC Auto mass conc (RBC) 34.4 g/dL Normal 32.0 - 36.0 [facility] Comment on above: Performed By: #### U A ####[address] [place] [address] MCV Auto Entitic volume (RBC) 100 fL Normal 80 - 100 [facility] Comment on above: Performed By: #### U A ####[address] [address] Platelets Auto #/vol (Bld) 197 10*3/uL Normal 150 - 450 [facility] Comment on above: Performed By: #### U A ####[address] [address] RBC Auto #/vol (Bld) 2.49 x10E12/L Low 4.00 - 5.20 [facility] Comment on above: Performed By: #### U A ####[address] [address] WBC Auto #/vol (Bld) 5.2 10*3/uL Normal 4.4 - 11.3 [facility] Comment on above: Performed By: #### U A ####[address] [address] CHEST 1 VIEWon 07-07-2017 CHEST 1 VIEW [...] laterally andcephalad.Electronically signed by: GAEL CRUZ MD [facility] Daily Progress Note-Cardiolo linn 07-07-2017 Protein mass conc Service: CardiologySubjective Data:KATHERINE [...] night.Objective Data:Objective Information: T P R BP GiN2Rrruf 36.4 78 18 155/73 97%Date/Time 07/07 14:10 [...] right colectomy-pain meds-encourage IS-Lovenox for DVT prophylaxis2. Tnfkjrgemjdp-ihnqmq-umjv metoprolol, lisinopril, and Imdur-cont to monitor closely3. [...] ttestationLast Updated: 07-Jul-2017 21:46 by Ventura Thacker) [facility] Daily Progress Note-Melly n 07-07-2017 Protein mass conc Service: SurgerySubj [...] pain.Objective Data:Objective Information: T P R BP RjF0Nfaqi 36.6 75 20 152/84 98%Date/Time 07/07 6:48 [...] Updated: 07-Jul-2017 13:55 by Manny Arana) Normal [facility] Discharge Henhhlg0fz 05-29-2 018 Protein mass conc Discharge Orders:Ant icipated Discharge Date:? 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 Hypokalemia: Catalog Name: Hypokalemia Hospital Providers:Provider RoleProvider Name? AttendingManny Arana? Ventura Garcia? ConsultingManny Arana? [facility] Course (Home Care/Gold Form):Hospital Course:? Hospital [...] 1.96 (07/08), 1.51 (07/09) 07/09/17: Discharge to shelter care for rehabilitation / todeconditioning as well as continued electrolyte monitoring [...] Therapy Orders:? Occupational Therapy OrdersEval and Treat ([facility] 2times/day? Physical Therapy OrdersEval and Treat ([facility]) 2times/day Provider Follow Up:? Physician To Follow at Skilled/RehabAttending Physician at Skilled/Rehab Provider FINAL REVIEW of Orders:Final Review:? Final Review of Medication Reconciliation and Orders Completedby Physician? Reviewing ProviderTejasvin DO Wesley (Resident) at 09-Jul-2017 07:42:04 Gold Form - Sheet Combining Operator Summary:Referral Information:? Referral [facility]? Referring Facility And [facility]? Contact Sebastian Chaudhari RN (Paper Steamer)? Contact Phone [phone] Medicare/Medicaid:? Medicare [id number] Social Security:? Social Security [id number] Mental & Functional Status:? Mental/Behavioral Statusalert? Functional Status Prior To Admissionindependent? Capacity For Independent Living/Group Supervisor Yard Planreturn home? Mental/Functional Commentalert and oriented x3 Electronic Signatures:Manny Arana) (Signed 08-Jul-2017 12:35)Authored: Gold Form Orders, Provider FINAL REVIEW of OrdersCo-Signer: Gold Form OrdersSom Chaudhari (CLIN COOR) (Signed 07-Jul-2017 15:04)Authored: Gold Form - Sheet Combining Operator SummaryMike Olson ( (Resident)) (Signed 09-Jul-2017 07:42)Authored: Discharge Orders, Hospital Course (Home Care/Gold Form), ProviderFINAL REVIEW of OrdersWanda Muller (CLIN COOR) (Signed 08-Jul-2017 16:40)Authored: Gold Form Orders, Gold Form - Sheet Combining Operator Summary Last Updated: 09-Jul-2017 07:42 by Mike Olson ( (Resident)) Normal [facility] EMR ADDONon 07-07-2017 ADDON CONFIRMATION REQUEST REC'D Normal [facility] Comment on above: Performed By: #### U AMIC ####[facility] [place] [address] MAGNESIUMon 07-07-2017 Magnesium mass conc 1.48 mg/dL Low 1.60 - 2.40 [facility] Comment on above: Performed By: #### U AMIC ####[facility] [place] [address] ARTERIAL BLOOD GASon 018 JACKIE'S TEST[COLLATERAL CIRCULATION] NON-APPLICABLE Normal [facility] Comment on above: Performed By: #### U A ####[address] [address] SITE OF ARTERIAL PUNCTURE LEFT BRACHIAL Normal [facility] Comment on above: Performed By: #### U A ####[address] [address] BASE EXCESS-BLOOD 8.2 mmol/L High -2.0 - 3.0 [facility] Comment on above: Performed By: #### U A ####[address] [address] FIO2 28 % Normal [facility] Comment on above: Performed By: #### U A ####[address] [address] Oxygen ppres (BldA) 51 mm[Hg] Low 85 - 95 [facility] Comment on above: Performed By: #### U A ####[address] [address] PCO2 40 mmHg Normal 38 - 42 [facility] Comment on above: Performed By: #### U A ####[address] [address] RBC Auto #/vol (Bld) 31.9 mmol/L High 22.0 - 26.0 [facility] Comment on above: Performed By: #### U A ####[address] [address] SO2 93 % Low 94 - 100 [facility] Comment on above: Performed By: #### U A ####[address] [address] pH (Bld) 7.51 [pH] High 7.38 - 7.42 [facility] Comment on above: Performed By: #### U A ####[address] [address] BNPon 07-06-2017 Natriuretic peptide B mass conc (Bld) 760 pg/mL High 0 - 99 [facility] Comment on above: Result Comment: . <1 00 pg/mL - Heart failure deupaxjk967-478 pg/mL - Intermediate probability of acute heart. failure exacerbation. Correlate with clinical. context and patient history. >=300 pg/mL - Heart Failure likely. Correlate with clinical. context and patient history.BNP testing is performed using different testingmethodology at [facility] than at [facility]. Direct result comparisons shouldonly be made within the same method. Performed By: #### U A ####[address] [address] CBCon 07-06-2017 Erythrocyte distribution width Auto Ratio (RBC) 13.7 % Normal 11.5 - 14.5 [facility] Comment on above: Performed By: #### C BCDF ####[address] [address] Hematocrit Auto Volume Fraction (Bld) 26.2 % Low 36.0 - 46.0 [facility] Comment on above: Performed By: #### C BCDF ####[address] [address] Hemoglobin mass conc (Bld) 9.0 g/dL Low 12.0 - 16.0 [facility] Comment on above: Performed By: #### C BCDF ####[address] [address] MCHC Auto mass conc (RBC) 34.4 g/dL Normal 32.0 - 36.0 [facility] Comment on above: Performed By: #### C BCDF ####[address] [address] MCV Auto Entitic volume (RBC) 101 fL High 80 - 100 [facility] Comment on above: Performed By: #### C BCDF ####[address] [address] Platelets Auto #/vol (Bld) 190 10*3/uL Normal 150 - 450 [facility] Comment on above: Performed By: #### C BCDF ####[address] [address] RBC Auto #/vol (Bld) 2.60 x10E12/L Low 4.00 - 5.20 [facility] Comment on above: Performed By: #### C BCDF ####[address] [address] WBC Auto #/vol (Bld) 3.5 10*3/uL Low 4.4 - 11.3 [facility] Comment on above: Performed By: #### C [facility] ####[facility] [place] [address] CHEST 1 VIEWon 07-06-2017 CHEST 1 VIEW [...] isrecommended.Electronically signed by: SUHAIL ALMANZA MD Normal [facility] CT HEAD WO CONTRASTon 2017 CT [...] fracture.Electronically signed by: SUHAIL ALMANZA MD Normal [facility] Daily Progress Note-Cardioemory esteves 07-06-2017 Protein mass conc Service: CardiologySubjective Data:KATHERINE [...] ativanObjective Data:Objective Information: T P R BP ToE5Bznpf 36.8 101 18 173/87 94%Date/Time 07/06 7:15 [...] contusions or wounds, noclubbingNeurological: alert and oriented m5Jjcisrklzqgsn: Appropriate mood and behaviorSkin: Warm and dryMedication:Medications: [...] right colectomy-pain meds-encourage IS-Lovenox for DVT prophylaxis2. Rsupyywpxcrv-ylegii-ehvt metoprolol, lisinopril, and Imdur-cont to monitor closely3. [...] Updated: 06-Jul-2017 09:54 by Ventura Thacker) Normal [facility] Daily Progress Note-Melly merino 07-06-2017 Protein mass [...] NAUSEA.Objective Data:Objective Information: T P R BP OqX0Qsqdb 36.4 88 16 147/71 97%Date/Time 07/05 20:07/05 20:07/05 20:07/05 20:0:00Range (36.4C - 36.4C ) [...] reviewed these laboratory results: Complete Blood Count [[id number] 05:18:00], Basic Metabolic Panel [Drawn 05-Jul-2017 05:18:00].Radiology [...] ationLast Updated: 06-Jul-2017 07:42 by Manny Arana) [facility] Nutrition Therapy-Follow Upo n 07-06-2017 Nutrition Therapy-Follow Up Assessment Subjective/Objective:Note Type: Follow UpNote Authored by: Registered Dietitian NutritionistPager Number: [phone] Note:The patient is a 82 year old [...] obstruction (disorder): Acute bowel obstruction: Onset Date: 76-Uls-3744Lamiarbeh Information:---- Intake and Output -----Mn/Dy/Year Time Intake Output NetMay 2017 2:00 pm 725 250 475May 2017 6:00 am 0 2 -2May 2017 10:00 pm 253 0 253The Intake and Output Totals for the last 24 hours are: Intake Output Net [phone] T P R BP [id number] 37 83 16 154/75 94%Date/Time 07/06 14:17 [...] Urine YELLOW Reference Range: STRAW,YELLOWAppearance, Urine CLEARSpecific Dobbins, Urine 1.008pH, Urine 5.0Protein, Urine NEGATIVEGlucose, Urine [...] Clinician Notes: TO START AT 1700 07/06/17, [id number] Orders: Clear Liquid Diet, Routine, 05-Jul-2017 Oral Nutritional Supplements, Routine Resource Breeze Flavor Preference: York; Tinnie, 2 Times a Day Special Instructions: Please send Boost Breeze orange at breakfast and BoostBreeze york at dinner, 06-Jul-2017 Pro-Stat 101, Oral - Administer as a scheduled medication. Pour packet into a30 ML medicine cup. Tube Feeding - Standard flush before and afteradministering 3 Times a Day Routine 1 PO (Oral), [id number]/Nutrition Related History:Change in Oral Intake/Appetite: increase -Diet [...] 17:56 by Silvia Tyler ([place], [place]) Normal [facility] TROPONIN Ion 07-06-2017 Troponin I.cardiac mass conc 0.02 ng/mL Normal 0.00 - 0.03 [facility] Comment on above: Result Comment: LESS THAN 0.04 NG/ML: NEGATIVEREPEAT TESTING IN FOUR TO SIX HOURSIF CLINICALLY INDICATED.0.04 - 0.5 NG/ML: CONSISTENT WITH POSSIBLECARDIAC DAMAGE AND POSSIBLE INCREASEDCLINICAL RISK.SERIAL MEASUREMENTS MAY HELP ASSESS EXTENT OFMYOCARDIAL DAMAGE.>0.5 NG/ML: CONSISTENT WITH CARDIAC DAMAGE,INCREASED CLINICAL RISK AND MYOCARDIALINFARCTION. SERIAL MEASUREMENTS MAY HELPASSESS EXTENT OF MYOCARDIAL DAMAGE..Note: Troponin I testing is performed using differenttesting methodology [facility] than at [facility]. Direct result comparisons should onlybe made within the same method. Performed By: #### C BCDF ####[address] [address] UA MICROSCOPICon 07-06-2017 BACTERIA 1+ /HPF Abnormal [facility] Comment on above: Performed By: #### U A ####[address] [address] HYALINE CAST 1+ /LPF Abnormal [facility] Comment on above: Performed By: #### U A ####[address] [address] MUCUS 1+ /LPF Normal [facility] Comment on above: Performed By: #### U A ####[address] [address] RBC Test strip #/vol (U) 0-5 Normal 0-5 [facility] Comment on above: Performed By: #### U A ####[address] [address] SQUAMOUS EPITH. CELLS FEW Normal [facility] Comment on above: Performed By: #### U A ####[address] [address] TRANSITIONAL EPITH.CELLS FEW Normal [facility] Comment on above: Performed By: #### U A ####[address] [address] WBC 0-5 Normal 0-5 [facility] Comment on above: Performed By: #### U A ####[address] [address] URINALYSISon 07-06-2017 APPEARANCE CLEAR Normal CLEAR [facility] Comment on above: Performed By: #### U A ####[address] [place] [address] BILIRUBIN Negative Normal NEGATIVE [facility] Comment on above: Performed By: #### U A ####[address] [address] BLOOD MODERATE(2+) Abnormal NEGATIVE [facility] Comment on above: Performed By: #### U A ####[address] [address] COLOR YELLOW Normal STRAW,YELL OW [facility] Comment on above: Performed By: #### U A ####[address] [address] GLUCOSE Negative Normal NEGATIVE [facility] Comment on above: Performed By: #### U A ####[address] [address] KETONES 5(Trace) Abnormal NEGATIVE [facility] Comment on above: Performed By: #### U A ####[address] [address] LEUKOCYTE ESTERASE TRACE Abnormal NEGATIVE [facility] Comment on above: Performed By: #### U A ####[address] [address] NITRITE Negative Normal NEGATIVE [facility] Comment on above: Performed By: #### U A ####[address] [address] pH 5.0 Normal 5.0 - 8.0 [facility] Comment on above: Performed By: #### U A ####[address] [address] Protein mass conc Negative Normal NEGATIVE [facility] Comment on above: Performed By: #### U A ####[address] [address] SPECIFIC GRAVITY 1.008 Normal 1.005 - 1.035 [facility] Comment on above: Performed By: #### U A ####[address] [address] UROBILINOGEN <2.0 Normal 0.0 - 1.9 [facility] Comment on above: Performed By: #### U A ####[address] [address] BASIC METABOLIC PANELon 06-10 Anion gap 3 molar conc 11 mmol/L Normal 10 - 20 [facility] Comment on above: Performed By: #### C BCDF ####[address] [place] [address] Calcium mass conc 7.7 mg/dL Low 8.6 - 10.3 [facility] Comment on above: Performed By: #### C BCDF ####[address] [address] Chloride molar conc 106 mmol/L Normal 98 - 107 [facility] Comment on above: Performed By: #### C BCDF ####[address] [address] Creatinine mass conc 0.74 mg/dL Normal 0.50 - 1.05 [facility] Comment on above: Performed By: #### C BCDF ####[address] [address] GFR- AM. >60 Normal >60 [facility] Comment on above: Result Comment: CALC ULATIONS OF ESTIMATED GFR ARE PERFORMED USING THE MDRD STUDY EQUATION FOR THE IDMS-TRACEABLE CREATININE METHODS. CLIN CHEM 2007;53:766-72 Performed By: #### C BCDF ####[address] [address] GFR-NON AM. >60 Normal >60 [facility] Comment on above: Performed By: #### C BCDF ####[address] [address] Glucose mass conc 90 mg/dL Normal 74 - 99 [facility] Comment on above: Performed By: #### C BCDF ####[address] [address] HCO3 molar conc (Bld) 26 mmol/L Normal 21 - 32 [facility] Comment on above: Performed By: #### C BCDF ####[address] [address] Potassium molar conc 3.9 mmol/L Normal 3.5 - 5.3 [facility] Comment on above: Performed By: #### C BCDF ####[address] [place] [address] Sodium molar conc 139 mmol/L Normal 136 - 145 [facility] Comment on above: Performed By: #### C BCDF ####[address] [address] Urea nitrogen mass conc 17 mg/dL Normal 6 - 23 [facility] Comment on above: Performed By: #### C BCDF ####[address] [address] CBCon 07-05-2017 Erythrocyte distribution width Auto Ratio (RBC) 14.1 % Normal 11.5 - 14.5 [facility] Comment on above: Performed By: #### C BCDF ####[address] [address] Hematocrit Auto Volume Fraction (Bld) 24.0 % Low 36.0 - 46.0 [facility] Comment on above: Performed By: #### C BCDF ####[address] [address] Hemoglobin mass conc (Bld) 8.0 g/dL Low 12.0 - 16.0 [facility] Comment on above: Performed By: #### C BCDF ####[address] [address] MCHC Auto mass conc (RBC) 33.3 g/dL Normal 32.0 - 36.0 [facility] Comment on above: Performed By: #### C BCDF ####[address] [address] MCV Auto Entitic volume (RBC) 103 fL High 80 - 100 [facility] Comment on above: Performed By: #### C BCDF ####[address] [address] Platelets Auto #/vol (Bld) 149 10*3/uL Low 150 - 450 [facility] Comment on above: Performed By: #### C BCDF ####[address] [address] RBC Auto #/vol (Bld) 2.33 x10E12/L Low 4.00 - 5.20 [facility] Comment on above: Performed By: #### C BCDF ####[facility] [place] [address] WBC Auto #/vol (Bld) 6.6 10*3/uL Normal 4.4 - 11.3 [facility] Comment on above: Performed By: #### C BCDF ####[facility] [place] [address] Daily Progress Note-Cardiolo linn 07-05-2017 Protein mass conc Service: CardiologySubjective [...] night.Objective Data:Objective Information: T P R BP [id number] 36.4 83 16 158/70 96%Date/Time 07/05 8:00 [...] contusions or wounds, noclubbingNeurological: alert and oriented [id number]: Appropriate mood and behaviorSkin: Warm and dryMedication:Medications:CA [...] NSTEMI (non-ST elevated myocardial infarction): Entered Date: 69-Yei-587560:25 UTI (urinary tract infection), bacterial: Entered Date: [...] bowel obstruction: Onset Date: 11-Feb-2012, Entered Date: 15-Dki-900803:56 Generalized abdominal pain (finding): Entered Date: 11-Feb-2012 [...] ST Elevation Myocardial Infarction (NSTEMI): Entered Date: 14-Dfz-744434:29 Coronary angioplasty/stent (PCI): Entered Date: 12-Dec-2009 15:30 Dyspnea: Entered Date: 12-Dec-2009 12:38 Coronary atherosclerosis: Entered Date: 12-Dec-2009 12:38 Left heart catheterization: Entered Date: 12-Dec-2009 12:36 Hypotension: Entered Date: 09-Sep-2009 15:03 Sepsis: Entered Date: 01-Aug-2009 02:21 Venous thromboembolism: Entered Date: 31-Jul-2009 14:57Comorbidities:Comorbidi ty: anemiaAnemia: acute blood loss anemiaAssessment:1. Cecal volvulus s/p right colectomy-pain meds-encourage IS-Lovenox for DVT prophylaxis2. Vfrulfhlolck-moymhn-avzr metoprolol, lisinopril, and Imdur-cont to monitor closely3. [...] Subjective Data, Objective Data, Assessment and Plan,Signature/Cosignature/A ttApril Negron (PROGRAM SUPERVISOR-GRINDER SET UP OPERATOR THREAD TOOL) (Signed 05-Jul-2017 12:38) Authored: Service, Subjective Data, Objective Data, Assessment and Plan,Signature/Cosignature/A ttestationLast Updated: 06-Jul-2017 07:33 by Ventura Thacker) Normal [facility] Daily Progress Note-Surgeryo n 07-05-2017 Protein mass conc Service: SurgerySubj ective Data:KATHERINE JUDGE is a 82 year old Female who is Hospital Day # 4 and POD #2 forUS GUIDED PLACEMENT LEFT IJ TLC / ELAP / ANDREIA / RIGHT COLECTOMY / STAPLEDILEOCOLONIC ANASTAMOSIS / BILATERAL TAP BLOCK.Additional Information:Pain is improving. Still passing some flatus. Remains afebrile.Objective Data:Objective Information: T P R BP [id number] 36.9 83 25 143/64 96%Date/Time 07/05 4:00 [...] CABGx2, anemia, HTN, SBO s/p ex lap [id number] admitted to the ICU for cecal volvulus, SBO, s/p right colectomy POD #2.cecal volvulus (resolved) s/p right colectomy-await bowel function, no laxatives due to ileus-abdominal XR showed possible ileus-Lasix 10mg IV then d/c soto for abdominal distention-Protonix 40mg IV daily-Percocet 5/325mg PO h5m-detlapmp LR drip to 40ml/hr-encourage sips of water on clear liquid diet-transfer patient to general medical floorSignature/Cosignature/A ttestation:Comments/ Additional FindingsTx to floorElectronic Signatures:Manny Arana) (Signed 05-Jul-2017 10:17) Authored: Signature/Cosignature/Attest ation Co-Signer: Service, Subjective Data, Objective Data, Assessment and PlanAltagracia Trammell (GLENDA) (Signed 05-Jul-2017 07:56) Authored: Service, Subjective Data, Objective Data, Assessment and PlanLast Updated: 05-Jul-2017 10:17 by Manny Arana) Normal [facility] ABDOMEN AP VIEWon 07-04-2017 ABDOMEN AP VIEW Name: KATHERINE JUDGE STUDY:TH ABDOMEN AP VIEW; 07/04/2017 9:10 am [...] Electronically signed by: ALTAGRACIA MELO MD Normal [facility] BASIC METABOLIC PANELon 05-2 Anion gap 3 molar conc 11 mmol/L Normal 10 - 20 [facility] Comment on above: Performed By: #### B MP ####[address] [place] [address] Calcium mass conc 8.0 mg/dL Low 8.6 - 10.3 [facility] Comment on above: Performed By: #### B MP ####[address] [address] Chloride molar conc 103 mmol/L Normal 98 - 107 [facility] Comment on above: Performed By: #### B MP ####[address] [address] Creatinine mass conc 1.37 mg/dL High 0.50 - 1.05 [facility] Comment on above: Performed By: #### B MP ####[address] [address] GFR- AM. 45 mL/min/1.73m2 Abnormal >60 [facility] Comment on above: Result Comment: CALC ULATIONS OF ESTIMATED GFR ARE PERFORMED USING THE MDRD STUDY EQUATION FOR THE IDMS-TRACEABLE CREATININE METHODS. CLIN CHEM 2007;53:766-72 Performed By: #### B MP ####[address] [place] [address] GFR-NON AM. 37 mL/min/1.73m2 Abnormal >60 [facility] Comment on above: Performed By: #### B MP ####[address] [place] [address] Glucose mass conc 111 mg/dL High 74 - 99 [facility] Comment on above: Performed By: #### B MP ####[address] [place] [address] HCO3 molar conc (Bld) 28 mmol/L Normal 21 - 32 [facility] Comment on above: Performed By: #### B MP ####[address] [place] [address] Potassium molar conc 4.3 mmol/L Normal 3.5 - 5.3 [facility] Comment on above: Performed By: #### B MP ####[address] [address] Sodium molar conc 138 mmol/L Normal 136 - 145 [facility] Comment on above: Performed By: #### B MP ####[address] [address] Urea nitrogen mass conc 34 mg/dL High 6 - 23 [facility] Comment on above: Performed By: #### B MP ####[address] [address] CBCon 07-04-2017 Erythrocyte distribution width Auto Ratio (RBC) 13.8 % Normal 11.5 - 14.5 [facility] Comment on above: Performed By: #### C BC ####[address] [address] Hematocrit Auto Volume Fraction (Bld) 27.1 % Low 36.0 - 46.0 [facility] Comment on above: Performed By: #### C BC ####[address] [address] Hemoglobin mass conc (Bld) 9.3 g/dL Low 12.0 - 16.0 [facility] Comment on above: Performed By: #### C BC ####[address] [address] MCHC Auto mass conc (RBC) 34.3 g/dL Normal 32.0 - 36.0 [facility] Comment on above: Performed By: #### C BC ####[address] [address] MCV Auto Entitic volume (RBC) 101 fL High 80 - 100 [facility] Comment on above: Performed By: #### C BC ####[address] [address] Platelets Auto #/vol (Bld) 169 10*3/uL Normal 150 - 450 [facility] Comment on above: Performed By: #### C BC ####[facility] [place] [address] RBC Auto #/vol (Bld) 2.68 x10E12/L Low 4.00 - 5.20 [facility] Comment on above: Performed By: #### C BC ####[facility] [place] [address] WBC Auto #/vol (Bld) 6.3 10*3/uL Normal 4.4 - 11.3 [facility] Comment on above: Performed By: #### C BC ####[facility] [place] [address] Daily Progress Note-Radha esteves 07-04-2017 Protein mass conc Service: CardiologySubjective Data:KATHERINE [...] 2679 750 1929 T P R BP BdA1Dzmcm 36.2 82 22 131/63 94%Date/Time 07/04 12:07/04 12:07/04 12:07/04 12:2:00Range (36.2C - 37.1C ) (81 - 93 ) (11 - 22 ) (91 - 163 )/ (50 - 71 ) (92%- 99% ) As of 04-Jul-2017 11:00:00, patient is on 2 L/min of oxygen via nasal cannulawith humidification.Highest temp of 37.1 C was recorded at 5/26 0:00Physical Exam:Constitutional: Thin elderly female no acute [...] contusions or wounds, noclubbingNeurological: alert and oriented [id number]: Appropriate mood and behaviorSkin: Warm and dryMedication:Medications: [...] right colectomy-pain meds-encourage IS-Lovenox for DVT prophylaxis2. Pbsmfczrnrxp-oqrikp-efek metoprolol IV until able to take PO-cont [...] 2017-Cont statin when able to eatElectronic Signatures:Ventura Thacker () (Signed 04-Jul-2017 12:14) Authored: Service, Subjective Data, Objective Data, Assessment and Plan,Signature/Cosignature/A ttestationLast Updated: 04-Jul-2017 12:14 by Ventura Thacker) Normal [facility] Daily Progress Note-Surgeryo n 07-04-2017 Protein [...] 2679 750 1929 T P R BP [id number] 36.5 86 15 163/71 98%Date/Time 07/04 4:00 [...] Updated: 04-Jul-2017 07:48 by Manny Arana) Normal [facility] LACTATEon 07-04-2017 Lactate molar conc 0.9 mmol/L Normal 0.4 - 2.0 [facility] Comment on above: Result Comment: Hali puncture immediately after or during the administration of Metamizole may lead to falsely low results. Testing should be performed immediately prior to Metamizole dosing. Performed By: #### L ACT ####[address] [address] ARTERIAL BLOOD GASon 018 JACKIE'S TEST[COLLATERAL CIRCULATION] Positive Normal [facility] Comment on above: Result Comment: abg done on vent asv mode 100% mv, 60% fio2. results given to nurse remy leach Performed By: #### L IPID ####[address] [place] [address] SITE OF ARTERIAL PUNCTURE RIGHT RADIAL Normal [facility] Comment on above: Performed By: #### L IPID ####[address] [address] BASE EXCESS-BLOOD -0.7 mmol/L Normal -2.0 - 3.0 [facility] Comment on above: Performed By: #### L IPID ####[address] [address] FIO2 60 % Normal [facility] Comment on above: Performed By: #### L IPID ####[address] [place] [address] Oxygen ppres (BldA) 109 mm[Hg] High 85 - 95 [facility] Comment on above: Performed By: #### L IPID ####[address] [place] [address] PCO2 36 mmHg Low 38 - 42 [facility] Comment on above: Performed By: #### L IPID ####[facility] [place] [address] RBC Auto #/vol (Bld) 23.4 mmol/L Normal 22.0 - 26.0 [facility] Comment on above: Performed By: #### L IPID ####[facility] [place] [address] SO2 98 % Normal 94 - 100 [facility] Comment on above: Performed By: #### L IPID ####[facility] [place] [address] pH (Bld) 7.42 [pH] Normal 7.38 - 7.42 [facility] Comment on above: Performed By: #### L IPID ####[address] [place] [address] CBCon 07-03-2017 Erythrocyte distribution width Auto Ratio (RBC) 13.9 % Normal 11.5 - 14.5 [facility] Comment on above: Performed By: #### V TDOH ####[facility] [place] [address] Hematocrit Auto Volume Fraction (Bld) 38.6 % Normal 36.0 - 46.0 [facility] Comment on above: Performed By: #### V TDOH ####[facility] [place] [address] Hemoglobin mass conc (Bld) 12.7 g/dL Normal 12.0 - 16.0 [facility] Comment on above: Performed By: #### V TDOH ####[facility] [place] [address] MCHC Auto mass conc (RBC) 32.9 g/dL Normal 32.0 - 36.0 [facility] Comment on above: Performed By: #### V TDOH ####[facility] [place] [address] MCV Auto Entitic volume (RBC) 102 fL High 80 - 100 [facility] Comment on above: Performed By: #### V TDOH ####[facility] [place] [address] Platelets Auto #/vol (Bld) 214 10*3/uL Normal 150 - 450 [facility] Comment on above: Performed By: #### V TDOH ####[facility] [place] [address] RBC Auto #/vol (Bld) 3.79 x10E12/L Low 4.00 - 5.20 [facility] Comment on above: Performed By: #### V TDOH ####[facility] [place] [address] WBC Auto #/vol (Bld) 6.4 10*3/uL Normal 4.4 - 11.3 [facility] Comment on above: Performed By: #### V TDOH ####[facility] [place] [address] Erythrocyte distribution width Auto Ratio (RBC) 13.8 % Normal 11.5 - 14.5 [facility] Comment on above: Performed By: #### L IPID ####[address] [place] [address] Hematocrit Auto Volume Fraction (Bld) 43.6 % Normal 36.0 - 46.0 [facility] Comment on above: Performed By: #### L IPID ####[address] [place] [address] Hemoglobin mass conc (Bld) 14.2 g/dL Normal 12.0 - 16.0 [facility] Comment on above: Performed By: #### L IPID ####[address] [place] [address] MCHC Auto mass conc (RBC) 32.6 g/dL Normal 32.0 - 36.0 [facility] Comment on above: Performed By: #### L IPID ####[address] [place] [address] MCV Auto Entitic volume (RBC) 103 fL High 80 - 100 [facility] Comment on above: Performed By: #### L IPID ####[address] [address] Platelets Auto #/vol (Bld) 236 10*3/uL Normal 150 - 450 [facility] Comment on above: Performed By: #### L IPID ####[facility] [place] [address] RBC Auto #/vol (Bld) 4.24 x10E12/L Normal 4.00 - 5.20 [facility] Comment on above: Performed By: #### L IPID ####[facility] [place] [address] WBC Auto #/vol (Bld) 4.7 10*3/uL Normal 4.4 - 11.3 [facility] Comment on above: Performed By: #### L IPID ####[facility] [place] [address] CHEST 1 VIEWon 07-03-2017 CHEST 1 VIEW [...] verification.Electronically signed by: BLU ACEVEDO MD Normal [facility] COMPREHENSIVE PANELon 2017 Albumin mass conc 2.7 g/dL Low 3.4 - 5.0 [facility] Comment on above: Performed By: #### V TDOH ####[facility] [place] [address] ALP enzyme act/vol 36 U/L Normal 33 - 136 [facility] Comment on above: Performed By: #### V TDOH ####[facility] [place] [address] ALT enzyme act/vol 19 U/L Normal 7 - 45 [facility] Comment on above: Result Comment: Daniel ents treated with Sulfasalazine may generate falsely decreased results for ALT. Performed By: #### V TDOH ####[facility] [place] [address] Anion gap 3 molar conc 14 mmol/L Normal 10 - 20 [facility] Comment on above: Performed By: #### V TDOH ####[facility] [place] [address] AST enzyme act/vol 21 U/L Normal 9 - 39 [facility] Comment on above: Performed By: #### V TDOH ####[facility] [place] [address] Bilirubin mass conc 1.1 mg/dL Normal 0.0 - 1.2 [facility] Comment on above: Performed By: #### V TDOH ####[facility] [place] [address] Calcium mass conc 8.3 mg/dL Low 8.6 - 10.3 [facility] Comment on above: Performed By: #### V TDOH ####[facility] [place] [address] Chloride molar conc 105 mmol/L Normal 98 - 107 [facility] Comment on above: Performed By: #### V TDOH ####[facility] [place] [address] Creatinine mass conc 1.12 mg/dL High 0.50 - 1.05 [facility] Comment on above: Performed By: #### V TDOH ####[facility] [place] [address] GFR- AM. 57 mL/min/1.73m2 Abnormal >60 [facility] Comment on above: Result Comment: CALC ULATIONS OF ESTIMATED GFR ARE PERFORMED USING THE MDRD STUDY EQUATION FOR THE IDMS-TRACEABLE CREATININE METHODS. CLIN CHEM 2007;53:766-72 Performed By: #### V TDOH ####[facility] [place] [address] GFR-NON AM. 47 mL/min/1.73m2 Abnormal >60 [facility] Comment on above: Performed By: #### V TDOH ####[facility] [place] [address] Glucose mass conc 148 mg/dL High 74 - 99 [facility] Comment on above: Performed By: #### V TDOH ####[facility] [place] [address] HCO3 molar conc (Bld) 22 mmol/L Normal 21 - 32 [facility] Comment on above: Performed By: #### V TDOH ####[facility] [place] [address] Potassium molar conc 3.9 mmol/L Normal 3.5 - 5.3 [facility] Comment on above: Performed By: #### V TDOH ####[facility] [place] [address] Protein mass conc 5.4 g/dL Low 6.4 - 8.2 [facility] Comment on above: Performed By: #### V TDOH ####[facility] [place] [address] Sodium molar conc 137 mmol/L Normal 136 - 145 [facility] Comment on above: Performed By: #### V TDOH ####[facility] [place] [address] Urea nitrogen mass conc 31 mg/dL High 6 - 23 [facility] Comment on above: Performed By: #### V TDOH ####[facility] [place] [address] Albumin mass conc 3.0 g/dL Low 3.4 - 5.0 [facility] Comment on above: Performed By: #### V TDOH ####[facility] [place] [address] ALP enzyme act/vol 41 U/L Normal 33 - 136 [facility] Comment on above: Performed By: #### V TDOH ####[facility] [place] [address] ALT enzyme act/vol 19 U/L Normal 7 - 45 [facility] Comment on above: Result Comment: Daniel ents treated with Sulfasalazine may generate falsely decreased results for ALT. Performed By: #### V TDOH ####[facility] [place] [address] Anion gap 3 molar conc 16 mmol/L Normal 10 - 20 [facility] Comment on above: Performed By: #### V TDOH ####[facility] [place] [address] AST enzyme act/vol 22 U/L Normal 9 - 39 [facility] Comment on above: Performed By: #### V TDOH ####[facility] [place] [address] Bilirubin mass conc 1.0 mg/dL Normal 0.0 - 1.2 [facility] Comment on above: Performed By: #### V TDOH ####[facility] [place] [address] Calcium mass conc 8.8 mg/dL Normal 8.6 - 10.3 [facility] Comment on above: Performed By: #### V TDOH ####[facility] [place] [address] Chloride molar conc 103 mmol/L Normal 98 - 107 [facility] Comment on above: Performed By: #### V TDOH ####[facility] [place] [address] Creatinine mass conc 1.12 mg/dL High 0.50 - 1.05 [facility] Comment on above: Performed By: #### V TDOH ####[facility] [place] [address] GFR- AM. 57 mL/min/1.73m2 Abnormal >60 [facility] Comment on above: Result Comment: CALC ULATIONS OF ESTIMATED GFR ARE PERFORMED USING THE MDRD STUDY EQUATION FOR THE IDMS-TRACEABLE CREATININE METHODS. CLIN CHEM 2007;53:766-72 Performed By: #### V TDOH ####[facility] [place] [address] GFR-NON AM. 47 mL/min/1.73m2 Abnormal >60 [facility] Comment on above: Performed By: #### V TDOH ####[facility] [place] [address] Glucose mass conc 157 mg/dL High 74 - 99 [facility] Comment on above: Performed By: #### V TDOH ####[facility] [place] [address] HCO3 molar conc (Bld) 22 mmol/L Normal 21 - 32 [facility] Comment on above: Performed By: #### V TDOH ####[facility] [place] [address] Potassium molar conc 4.1 mmol/L Normal 3.5 - 5.3 [facility] Comment on above: Performed By: #### V TDOH ####[facility] [place] [address] Protein mass conc 6.0 g/dL Low 6.4 - 8.2 [facility] Comment on above: Performed By: #### V TDOH ####[facility] [place] [address] Sodium molar conc 137 mmol/L Normal 136 - 145 [facility] Comment on above: Performed By: #### V TDOH ####[facility] [place] [address] Urea nitrogen mass conc 29 mg/dL High 6 - 23 [facility] Comment on above: Performed By: #### V TDOH ####[facility] [place] [address] Consult-Cardiologyon 018 Consult-Cardiology Service:Service: CardiologyConsult:Consult requested by [...] Restoril: ConfusionObjective:Objective Information: T P R BP AsJ8Zrupx 36.5 87 21 103/55 95%Date/Time 07/03 8:07/03 8:07/03 8:00 07/03 8:00 07/03 8:00Range (36.2C - [...] contusions or wounds, noclubbingNeurological: alert and oriented t7Wnxehbamzxbqr: Appropriate mood and behaviorSkin: Warm and dryMedications:Medications:C [...] Urine MARINA Reference Range: STRAW,YELLOWAppearance, Urine HAZYSpecific Dobbins, Urine 1.026pH, Urine 5.0Protein, Urine 30(1+) AGlucose, [...] Elevated glucose-Could be stress response-check hgb A1C6. Rbokjy-Xtjibv-Xhsodkf closely post op7. Hyperlipidemia-Lipid panel WNL in February 2017-Cont statin when able to eatCritical care time 45 minutesElectronic Signatures:Ventura Thacker) (Signed 05-Jul-2017 11:39) Authored: Signature/Cosignature/Attest ation Co-Signer: Service, History of Present Illness, Past Medical/Surgical History,Review Family/Social History and ROS, Allergies, Objective,Assessment/Recomme ndations, Signature/Cosignature/Attest fcoionApril Nam (PROGRAM SUPERVISOR-[facility]) (Signed 03-Jul-2017 09:53) Authored: Service, History of Present Illness, Past Medical/Surgical History,Review Family/Social History and ROS, Allergies, Objective,Assessment/Recomme ndations, Signature/Cosignature/Attest ationLast Updated: 05-Jul-2017 11:39 by Ventura Thacker) Normal [facility] Consult-Surgeryon 07-03-2017 Consult-Surgery This report has been cancelled. Normal [facility] Daily Progress Note - Critic al Care-SICUon 07-03-2017 Protein mass conc Service:Critical Car e Service:? Service SICUSubjective Data:ID Statement:82-year-old female with PMH of CAD, CHF, CABGx2, anemia, HTN, SBO s/p ex lap [id number] admitted to the ICU for cecal volvulus, SBO, s/p right colectomy POD #1.Patient presented to the [facility] 07/02/17 complaining of severe periumbilicalabdominal pain. [...] Data:? Objective Information T P R BP FxN8Jsqkh 36.1 81 18 135/58 94%Date/Time 07/03 12:00 [...] last 24 hours are: Intake Output Net 8732 [id number] 4862 Drain and tube details (included in I&O [...] changesCardiovascular:Diagno sis:No acute issues, h/o CAD CHF, DDJRl2Svhfwosszi: HR normal. NSR on ECGPlan: -cardiology following-continue [...] Bed @ 30 Degrees: yesDate Soto Inserted: [id number]:Urinary Catheter Removed Post-Op Day 2: noReason Patient [...] PlanLast Updated: 03-Jul-2017 21:22 by Manny Arana) [facility] Discharge Planning Noteon Discharge Planning Note Discharge Needs Assessment:? Discharge Planning Assessment [id number]? Discharge Planning Assessment Completed bySom Chaudhari RN [...] 07/06/17 1056Tried to meet with patient today, SQUEEGEER AND FORMER feeding patient and she stated patientconfused today, Unable to talk with patient due to confusion, Will continue tofollow. Som Chaudhari RN (Paper Steamer) 07/07/17 1545Met with patient about discharge plans, lives with spouse in a one story homewith 2 steps to enter, Therapy recommended SNF for rehab, [facility], referral sent to [facility],Leida at [facility] accepted patient upon discharge. [id number] completed.Som Chaudhari RN (Paper Steamer) 07/08/17 1540- Discussed plan of care in interdisciplinary rounds. Patient isinterested in staying here for swing bed is able. [facility] Referral sent to team to review and willfollow. Javier Muller [facility] Electronic Signatures:Som Chaudhari (CLIN COOR) (Signed 07-Jul-2017 15:47)Authored: Discharge Planning Wanda Cheung (CLIN COOR) (Signed 08-Jul-2017 15:41)Authored: Discharge Planning Note Last Updated: 08-Jul-2017 15:41 by Wanda Muller (CLIN COOR) References:1. Data Referenced From "Admission Risk Screen - Adult" 07/02/2017 08:21 PM Normal [facility] FLUID CULTURE/SM.,BACTERIALo n 07-03-2017 FLUID CULTURE/SM.,BACTERIAL PATIENT: KATHERINE JUDGE [id number] : [birth year] AGE: SEX: F ORDERED BY: DEBRA ARANA: FLUID COLLECTED: 07/03/17 00:58ANTIBIOTICS AT ESDRAS.: RECEIVED : 07/03/17 08:21SITE: peritineum R E S U L T S GRAM STAIN FINAL 07/03/17 09:41 NO GRANULOCYTES OR ORGANISMS SEEN. FLUID CULTURE/SM.,BACTERIAL FINAL 07/06/17 09:20 NO GROWTH AEROBICALLY OR ANAEROBICALLY. Normal [facility] Comment on above: Performed By: #### U A ####[facility] [place] [address] LACTATEon 07-03-2017 Lactate molar conc Canceled Normal [facility] Comment on above: Order Comment: TEST LACTATE WAS CANCELLED, 07/03/2017 09:41 ?Cancel Reason: Alternativetreatment needed. Result Comment: Hali puncture immediately after or during the administration of Metamizole may lead to falsely low results. Testing should be performed immediately prior to Metamizole dosing. Performed By: #### V TDOH ####[facility] [place] [address] Lactate molar conc 2.6 mmol/L High 0.4 - 2.0 [facility] Comment on above: Result Comment: Hali puncture immediately after or during the administration of Metamizole may lead to falsely low results. Testing should be performed immediately prior to Metamizole dosing. Performed By: #### V TDOH ####[facility] [place] [address] Lactate molar conc 3.0 mmol/L High 0.4 - 2.0 [facility] Comment on above: Result Comment: Hali puncture immediately after or during the administration of Metamizole may lead to falsely low results. Testing should be performed immediately prior to Metamizole dosing. Performed By: #### V TDOH ####[facility] [place] [address] Lactate molar conc 2.9 mmol/L High 0.4 - 2.0 [facility] Comment on above: Result Comment: Hali puncture immediately after or during the administration of Metamizole may lead to falsely low results. Testing should be performed immediately prior to Metamizole dosing. Performed By: #### V TDOH ####[facility] [place] [address] MAGNESIUMon 07-03-2017 Magnesium mass conc 1.73 mg/dL Normal 1.60 - 2.40 [facility] Comment on above: Performed By: #### V TDOH ####[facility] [place] [address] Nutrition Therapy-Assessment on 07-03-2017 Nutrition Therapy-Assessment Assessment Subjective/Objective:Note Type: AssessmentNote Authored by: Registered Dietitian NutritionistPager Number: [phone] Note:The patient is a 82 year old [...] bowel obstruction:Objective Information: T P R BP RnL5Grmlm 36.1 83 13 92/53 93%Date/Time 07/03 12:00 [...] Trending ViewResult 03-Jul-2017 08:23:00 03-Jul-2017 05:20:00 03-Jul-2017 02:05:9295-Oli-3096 17:00:00Lactate, Level 2.6 H 3.0 H 2.9 [...] Urine MARINA Reference Range: STRAW,YELLOWAppearance, Urine HAZYSpecific Dobbins, Urine 1.026pH, Urine 5.0Protein, Urine 30(1+) AGlucose, [...] mL Run at: 60 mL/hr IntraVenous , [id number] Orders: NPO, Routine Except Sips of Water Special Instuctions: may have ice chips and popsicles also, [id number]/Nutrition Related History:Change in Oral Intake/Appetite: decrease -Pt [...] less than 5 days NPO/clear liquids, Blood Tznczds65-076 mg/dl, lab values within normal limits, promote [...] EducationLast Updated: 03-Jul-2017 17:04 by Silvia Tyler ([place], DEEPA) Normal [facility] OPERATIVE REPORTon 8 OPERATIVE REPORT [facility] [place], [place] [address]Ycwhgfg Name: KATHERINE JUDGE. NMRN: [id number]: 1935Encounter Number: [id number] of Service: 07/03/2017Patient Location: [facility]85Patient Type: ISurgeon: Manny Arana M.D.Report Type: Operative ReportsPREOPERATIVE DIAGNOSIS:Venofibrosis, cecal volvulus, small-bowel obstruction.POSTOPERATIVE DIAGNOSIS:Venofibrosis, cecal volvulus, small-bowel obstruction.OPERATION/PROCED URE:1. Ultrasound-guided placement of left internal jugular vein triple-lumen catheter.2. Exploratory laparotomy.3. Lysis of adhesions.4. Right colectomy.5. Ileocolonic staple anastomosis.6. Bilateral transversus abdominis plane block.SURGEON:Manny DotsonISTANT(S):Mary SantanaANESTHESIA:General.INC ISION:Midline.ESTIMATED BLOOD LOSS:50 cc.FLUIDS:1500 mL.DRAINS:None.SPECIMENS:Non viable cecum [...] discussion with thepatient and discussion with the barrel bander, it was felt that she would be [...] present, and the small bowel itselfwas viable.A wvpi-dk-eqqz ileocolonic stapled functional end-to-end handsewn 2-layeredanastomosis was [...] hematoma, but itappeared to be viable. A onau-rp-qqig stapled anastomosis was performed afterensuring that I [...] this. I then reanastomosed the bowelperforming a hcom-ed-krnh stapled anastomosis after opening this at thecorners. I had complete control of the bowel clamps, I performed bpspo-nj-eewi stapled anastomosis. I then performed another ukvhoxkhxusqj-nh-ypa handsewn 2-layered anastomosis, which on completion had [...] M.D. ESTTT: 07/03/2017 06:25 AM ESTDICTATION NUMBER: [id number] JOB NUMBER: [id number]:Benjy Garnett M.D., [id number] signed by Dr Manny Arana 07/04/2017 09:43:47 AM Normal [facility] PHOSPHORUSon 07-03-2017 Phosphate mass conc 3.7 mg/dL Normal 2.5 - 4.9 [facility] Comment on above: Result Comment: The performance characteristics of phosphorus testing in heparinized plasma have been validated by the individual laboratory site where testing is performed. Testing on heparinized plasma is not approved by the FDA; however, such approval is not necessary. Performed By: #### V TDOH ####[facility] [place] [address] Admission Risk Screen - Adul ton 07-02-2017 [...] Directive type Living Will, Durable Power of Automotive Refinisher forHealthcare? Living Will Availability Living Will not available now? Living Will Requested 02-Jul-2017? Durable Power of Automotive Refinisher Availability DPOA not available now? Durable Power of Automotive Refinisher Requested 02-Jul-2017? Durable Power of Automotive Refinisher contact (name and number) Ganga Judge (son)[phone]? Advance Directive Mental Health not applicableFalls Screen:Type [...] instruction? Cultural Considerations none? Developmental Considerations none? Christianity Considerations noneLearning Assessment (Other Learner):? Other learner [...] lowerSpiritual Screen:? Are there any cultural, spiritual, catholic practices/values/needs that areimportant for us to know? noCAGE:Is this an injured patient [place] a Tra[place] Center [place] [place] noVaccinations:Vaccination - Influenza Vaccination Screen:? Is it [...] 02-Jul-2017 20:35 by Emily Henderson (SUPV) Normal [facility] CBC AND DIFFERENTIALon 07-02 % AUTOMATED IMMATURE GRAN 0.4 % Normal 0.0 - 0.9 [facility] Comment on above: Result Comment: Perc ent differential counts (%) should be interpreted in the context of the absolute cell counts (cells/L). Performed By: #### C BCDF ####[address] [address] % NEUTROPHIL 83.4 % Normal 40.0 - 80.0 [facility] Comment on above: Performed By: #### C BCDF ####[address] [address] Basophils/100 WBC Auto (Bld) 0.03 x10E9/L Normal 0.00 - 0.10 [facility] Comment on above: Performed By: #### C BCDF ####[address] [place] [address] Basophils/100 WBC Auto (Bld) 0.2 % Normal 0.0 - 2.0 [facility] Comment on above: Performed By: #### C BCDF ####[address] [address] Eosinophils Auto #/vol (Bld) 0.01 10*3/uL Normal 0.00 - 0.40 [facility] Comment on above: Performed By: #### C BCDF ####[address] [address] Eosinophils/100 WBC Auto (Bld) 0.1 % Normal 0.0 - 6.0 [facility] Comment on above: Performed By: #### C BCDF ####[address] [address] Erythrocyte distribution width Auto Ratio (RBC) 13.6 % Normal 11.5 - 14.5 [facility] Comment on above: Performed By: #### C BCDF ####[address] [address] Hematocrit Auto Volume Fraction (Bld) 44.8 % Normal 36.0 - 46.0 [facility] Comment on above: Performed By: #### C BCDF ####[address] [address] Hemoglobin mass conc (Bld) 15.0 g/dL Normal 12.0 - 16.0 [facility] Comment on above: Performed By: #### C BCDF ####[address] [address] Lymphocytes Auto #/vol (Bld) 1.63 10*3/uL Normal 0.80 - 3.00 [facility] Comment on above: Performed By: #### C BCDF ####[address] [address] Lymphocytes/100 WBC Auto (Bld) 12.8 % Low 13.0 - 44.0 [facility] Comment on above: Performed By: #### C BCDF ####[address] [address] MCHC Auto mass conc (RBC) 33.5 g/dL Normal 32.0 - 36.0 [facility] Comment on above: Performed By: #### C BCDF ####[address] [address] MCV Auto Entitic volume (RBC) 100 fL Normal 80 - 100 [facility] Comment on above: Performed By: #### C BCDF ####[address] [address] Monocytes Auto #/vol (Bld) 0.40 10*3/uL Normal 0.05 - 0.80 [facility] Comment on above: Performed By: #### C BCDF ####[address] [place] [address] Monocytes/100 WBC Auto (Bld) 3.1 % Normal 2.0 - 10.0 [facility] Comment on above: Performed By: #### C BCDF ####[address] [place] [address] Neutrophils Auto #/vol (Bld) 10.64 10*3/uL High 1.60 - 5.50 [facility] Comment on above: Performed By: #### C BCDF ####[address] [address] Platelets Auto #/vol (Bld) 260 10*3/uL Normal 150 - 450 [facility] Comment on above: Performed By: #### C BCDF ####[address] [address] RBC Auto #/vol (Bld) 4.49 x10E12/L Normal 4.00 - 5.20 [facility] Comment on above: Performed By: #### C BCDF ####[address] [address] WBC Auto #/vol (Bld) 12.8 10*3/uL High 4.4 - 11.3 [facility] Comment on above: Performed By: #### C BCDF ####[address] [address] COMPREHENSIVE PANELon 2017 Albumin mass conc 4.7 g/dL Normal 3.4 - 5.0 [facility] Comment on above: Performed By: #### C MP ####[address] [address] ALP enzyme act/vol 62 U/L Normal 33 - 136 [facility] Comment on above: Performed By: #### C MP ####[address] [place] [address] ALT enzyme act/vol 33 U/L Normal 7 - 45 [facility] Comment on above: Result Comment: Daniel ents treated with Sulfasalazine may generate falsely decreased results for ALT. Performed By: #### C MP ####[address] [place] [address] Anion gap 3 molar conc 13 mmol/L Normal 10 - 20 [facility] Comment on above: Performed By: #### C MP ####[address] [place] [address] AST enzyme act/vol 34 U/L Normal 9 - 39 [facility] Comment on above: Performed By: #### C MP ####[address] [address] Bilirubin mass conc 1.0 mg/dL Normal 0.0 - 1.2 [facility] Comment on above: Performed By: #### C MP ####[address] [address] Calcium mass conc 10.9 mg/dL High 8.6 - 10.3 [facility] Comment on above: Performed By: #### C MP ####[address] [address] Chloride molar conc 98 mmol/L Normal 98 - 107 [facility] Comment on above: Performed By: #### C MP ####[address] [address] Creatinine mass conc 1.25 mg/dL High 0.50 - 1.05 [facility] Comment on above: Performed By: #### C MP ####[address] [address] GFR- AM. 50 mL/min/1.73m2 Abnormal >60 [facility] Comment on above: Result Comment: CALC ULATIONS OF ESTIMATED GFR ARE PERFORMED USING THE MDRD STUDY EQUATION FOR THE IDMS-TRACEABLE CREATININE METHODS. CLIN CHEM 2007;53:766-72 Performed By: #### C MP ####[address] [place] [address] GFR-NON AM. 41 mL/min/1.73m2 Abnormal >60 [facility] Comment on above: Performed By: #### C MP ####[address] [place] [address] Glucose mass conc 127 mg/dL High 74 - 99 [facility] Comment on above: Performed By: #### C MP ####[facility] [place] [address] HCO3 molar conc (Bld) 32 mmol/L Normal 21 - 32 [facility] Comment on above: Performed By: #### C MP ####[facility] [place] [address] Potassium molar conc 3.8 mmol/L Normal 3.5 - 5.3 [facility] Comment on above: Performed By: #### C MP ####[facility] [place] [address] Protein mass conc 9.3 g/dL High 6.4 - 8.2 [facility] Comment on above: Performed By: #### C MP ####[facility] [place] [address] Sodium molar conc 139 mmol/L Normal 136 - 145 [facility] Comment on above: Performed By: #### C MP ####[address] [place] [address] Urea nitrogen mass conc 29 mg/dL High 6 - 23 [facility] Comment on above: Performed By: #### C MP ####[address] [place] [address] CT ABDOMEN AND PELVIS WO CON TRASTon [...] y signed by: BLU ACEVEDO MD Normal [facility] History and Physicalon 07-02 History and [...] Rash, UlcerObjective:Objective Information: T P R BP SeC9Oggkg 36.6 90 16 111/58 100%Date/Time 07/02 15:10 [...] [facility]Electronic Signatures:Manny Arana) (Signed 02-Jul-2017 20:34) Authored: History of Present Illness, Comorbidities, Past Medical/SurgicalHistory, Social History, Allergies, Review of Systems, Objective, Assessmentand Plan, Signatures/Attestation/Certi ficationLast Updated: 02-Jul-2017 20:34 by Manny Arana) Normal [facility] LACTATEon 07-02-2017 Lactate molar conc 1.5 mmol/L Normal 0.4 - 2.0 [facility] Comment on above: Result Comment: Hali puncture immediately after or during the administration of Metamizole may lead to falsely low results. Testing should be performed immediately prior to Metamizole dosing. Performed By: #### L ACT ####[facility] [place] [address] LIPASEon 07-02-2017 Lipase enzyme act/vol 455 U/L High 9 - 82 [facility] Comment on above: Result Comment: Hali puncture immediately after or during the administration of Metamizole may lead to falsely low results. Testing should be performed immediately prior to Metamizole dosing. Performed By: #### L IPAS ####[address] [place] [address] Patient Profile - Adult v2on 07-02-2017 Protein mass conc Profile:Initial Info :How to be Addressed NaomiSpoken Language Preferred Belgian (1)Source of Information patientAre you currently using the Personal Electronic Health Record or [employer] noAre you interested in learning more about [facility] for the management of yourhealth yes, information providedEmail address [email or web address] Centertate d Reason for Admission Intestines are twisted [...] by Remy Paniagua (CINTHYA)References:1. Data Referenced From "Patient Profile - Adult v2" 12/26/2016 06:36 PM Normal [facility] Preop Checkliston 07-02-2017 Preop Checklist Preop [...] 02-Jul-2017 21:30 by Shawnee Rodríguez (RN) Normal [facility] Provider Note - EDon 018 Protein [...] Past Medical History, Active? Non ST elevation [place]: Past Medical History, Active, 13-Dec-2009? CAD: Past [...] Medical History, Active? Family spokesperson: Other, CARLOS [phone] BROTHERPAUL ROSELIA [phone], Active? Narcotic Use: Other, Active? Clostridium difficile toxin (C-Diff): Infection Control, came with ([facility]), Active, 27-Aug-2012? Methicillin-Resistant Staph Aureus (MRSA): Infection Control, sputum,Active, Mar 2012? .Pneumonia- Pneumococcal polysaccharide vaccine-adult: Immunizations,Active? .Influenza- Influenza Virus: Immunizations, Active, 75-Dio-4083Wmatcpu, Intolerance, Adverse Event: Allergies:? Lincocin: Drug, Rash, [...] 60 mg oral tablet: Last Modified Date/Time: [id number]-Hbj-[id number]:42? Os-Ramiro Calcium+D3 oral tablet: Last Modified Date/Time: [...] "Triage - ED" 07/02/2017 3:10 PM Normal [facility] TYPE + SCREENon 07-02-2017 ABO TYPE O Normal [facility] Comment on above: Performed By: #### L IPID ####[facility] [place] [address] RH TYPE Positive Normal [facility] Comment on above: Performed By: #### L IPID ####[facility] [place] [address] Triage - EDon 07-02-2017 Triage - ED Chart Review:CHIEF COMPLAINTALICE Wilber JUDGE is a Female patient with a chief complaint of abdominal pain.Onset of the Complaint: [id number] Date/Time: 02-Jul-2017 14:57Vital Signs:Temperature: 98.0F ( 36.6C) taken temporalBlood Pressure: 130/65 Mean:Heart Rate: 80Respiratory Rate: 16Pulse Oximetry: 94% on room air, no respiratory support. Height: 5 feet 10.00inches. 177.8 CMWeight: 103.0 pounds. Calculated 46.7 kg. (stated)Calculated BMI (kg/m2): 14.772 Calculated BSA (m2) 1.52Allergies: yesESI: 3PAINPain Scale Used: WILDAPast Medical History:? Past Medical History Reviewed yesElectronic Signatures:Obdulia Perea (CINTHYA IBARRA) (Signed 02-Jul-2017 15:11) Authored: Triage, Past Medical HistoryLast Updated: 02-Jul-2017 15:11 by Obdulia Perea (CINTHYA IBARRA) Normal [facility] UA MICROSCOPICon 07-02-2017 BACTERIA 1+ /HPF Abnormal [facility] Comment on above: Performed By: #### U AMIC ####[facility] [place] [address] HYALINE CAST 4+ /LPF Abnormal [facility] Comment on above: Performed By: #### U AMIC ####[facility] [place] [address] MUCUS 1+ /LPF Normal [facility] Comment on above: Performed By: #### U AMIC ####[address] [place] [address] RBC 1 /HPF Abnormal 0-5 [facility] Comment on above: Performed By: #### U AMIC ####[address] [place] [address] SQUAMOUS EPITH. CELLS 2 /HPF Normal [facility] Comment on above: Performed By: #### U AMIC ####[address] [address] WBC 3 /HPF Abnormal 0-5 [facility] Comment on above: Performed By: #### U AMIC ####[address] [address] URINALYSISon 07-02-2017 APPEARANCE HAZY Normal CLEAR [facility] Comment on above: Performed By: #### U A ####[address] [address] BILIRUBIN Negative Normal NEGATIVE [facility] Comment on above: Performed By: #### U A ####[address] [address] BLOOD Negative Normal NEGATIVE [facility] Comment on above: Performed By: #### U A ####[address] [address] COLOR MARINA Normal STRAW,YELL OW [facility] Comment on above: Performed By: #### U A ####[address] [address] GLUCOSE Negative Normal NEGATIVE [facility] Comment on above: Performed By: #### U A ####[address] [place] [address] KETONES Negative Normal NEGATIVE [facility] Comment on above: Performed By: #### U A ####[facility] [place] [address] LEUKOCYTE ESTERASE TRACE Abnormal NEGATIVE [facility] Comment on above: Performed By: #### U A ####[address] [place] [address] NITRITE Negative Normal NEGATIVE [facility] Comment on above: Performed By: #### U A ####[address] [place] [address] pH 5.0 Normal 5.0 - 8.0 [facility] Comment on above: Performed By: #### U A ####[facility] [place] [address] Protein mass conc 30(1+) Abnormal NEGATIVE [facility] Comment on above: Performed By: #### U A ####[address] [place] [address] SPECIFIC GRAVITY 1.026 Normal 1.005 - 1.035 [facility] Comment on above: Performed By: #### U A ####[address] [address] UROBILINOGEN <2.0 Normal 0.0 - 1.9 [facility] Comment on above: Performed By: #### U A ####[address] [address] LIPID PANEL (CORONARY RISK 2 )on 03-02-2017 Cholesterol in HDL mass conc 41.0 mg/dL Normal [facility] Comment on above: Result Comment: . AG E VERY LOW LOW NORMAL HIGH 0-19 Y < 35 < 40 40-45 ---- 20-24 Y ---- < 40 >45 ---- >24 Y ---- < 40 40-60 >60. Performed By: #### L IPID ####[address] [address] Cholesterol in LDL mass conc 69 mg/dL Normal 0 - 99 [facility] Comment on above: Result Comment: . CAROLINE ERIVN AGE DESIRABLE OPTIMAL HIGH HIGH VERY HIGH 0-19 Y 0 - 109 --- 110-129 >/= 130 ---- 20-24 Y 0 - 119 --- 120-159 >/= 160 ---- >24 Y 0 - 99 100-129 130-159 160-189 >/=190. Performed By: #### L IPID ####[facility] [place] [address] Cholesterol in VLDL mass conc 24 mg/dL Normal 0 - 40 [facility] Comment on above: Performed By: #### L IPID ####[facility] [place] [address] Cholesterol mass conc 134 mg/dL Normal 0 - 199 [facility] Comment on above: Result Comment: . [...] Metamizole dosing. Performed By: #### L IPID ####[address] [place] [address] Cholesterol.total/Cho lesterol in HDL mass ratio 3.3 {ratio} Normal [facility] Comment on above: Result Comment: REF VALUESDESIRABLE < 3.4HIGH RISK > 5.0 Performed By: #### L IPID ####[address] [place] [address] Triglyceride mass conc 122 mg/dL Normal 0 - 149 [facility] Comment on above: Result Comment: . [...] Metamizole dosing. Performed By: #### L IPID ####[facility] [place] [address] VITAMIN D, 25-HYDROXYon 02-10 VITAMIN D, 25-HYDROXY 34 ng/mL Normal [facility] Comment on above: Result Comment: .DEF ICIENCY: < 20 NG/MLINSUFFICIENCY: 20-29 NG/MLOPTIMUM LEVEL: 30-80 NG/MLPOSSIBLE TOXICITY: > 80 NG/MLTHIS ASSAY ACCURATELY QUANTIFIES THE SUM OFVITAMIN D3, 25-HYDROXY AND VIT D2,25-HYDROXY. Performed By: #### V TDOH ####[facility] [place] [address] URINE CULTURE,BACTERIALon URINE CULTURE,BACTERIAL PATIENT: KATHERINE JUDGE LOCATION: [facility]#: [id number] : [birth year] AGE: SEX: F ORDERED BY: GOYO GARNETT: URINE COLLECTED: 01/21/17 22:12ANTIBIOTICS AT ESDRAS.: RECEIVED : 01/21/17 22:12SITE: R E S U L T S URINE CULTURE,BACTERIAL FINAL 01/22/17 14:32 NO SIGNIFICANT GROWTH. Normal [facility] Comment on above: Performed By: #### U RINC ####[facility] [place] [address] Vital Signs Date Time Vital Sign Value Performing Clinician Facility 08-05-2024 14:58-0400 Body temperature 97.5 [degF] Dr. Kam Ocampo Sr. DO Work Phone: [facility] 08-05-2024 14:58-0400 Diastolic blood pressure 94 mm[Hg] Dr. Kam Ocampo Sr. DO Work Phone: [facility] 08-05-2024 14:58-0400 Heart rate 81 /min Dr. Kam Ocampo Sr. DO Work Phone: [facility] 08-05-2024 14:58-0400 Inhaled oxygen flow rate 2 L/min Dr. Kam Ocampo Sr. DO Work Phone: [facility] 08-05-2024 14:58-0400 Respiratory rate 16 /min Dr. Kam Ocampo Sr. DO Work Phone: [facility] 08-05-2024 14:58-0400 SaO2% (BldA) [Mass fraction] 97 % Dr. Kam Ocampo Sr. DO Work Phone: [facility] 08-05-2024 14:58-0400 Systolic blood pressure 152 mm[Hg] Dr. Kam Ocampo Sr. DO Work Phone: [facility] 08-04-2024 15:25-0400 Body height 152.[address] Kam Ocampo Sr. DO Work Phone: [facility] 08-04-2024 15:25-0400 Body mass index (BMI) [Ratio] 22.2 kg/m2 Dr. Kam Ocampo Sr. DO Work Phone: [facility] 08-04-2024 15:25-0400 Body weight 51.[address] Kam Ocampo Sr. DO Work Phone: [facility] 08-02-2024 17:09-0400 Body temperature 98.7 [degF] Dr. Kam Ocampo Sr. DO Work Phone: [facility] 08-02-2024 17:09-0400 Diastolic blood pressure 49 mm[Hg] Dr. Kam Ocampo Sr. DO Work Phone: [facility] 08-02-2024 17:09-0400 Heart rate 84 /min Dr. Kam Ocampo Sr. DO Work Phone: [facility] 08-02-2024 17:09-0400 Respiratory rate 22 /min Dr. Kam Ocampo Sr. DO Work Phone: [facility] 08-02-2024 17:09-0400 SaO2% (BldA) [Mass fraction] 100 % Dr. Kam Ocampo Sr. DO Work Phone: [facility] 08-02-2024 17:09-0400 Systolic blood pressure 135 mm[Hg] Dr. Kam Ocampo Sr. DO Work Phone: [facility] 08-02-2024 17:00-0400 Inhaled oxygen flow rate 2 L/min Dr. Kam Ocampo Sr. DO Work Phone: [facility] 08-02-2024 13:04-0400 Body height 152.[address] Kam Ocampo Sr. DO Work Phone: [facility] 08-02-2024 13:04-0400 Body mass index (BMI) [Ratio] 22.2 kg/m2 Dr. Kam Ocampo Sr. DO Work Phone: [facility] 08-02-2024 13:04-0400 Body weight 51.[address] Kam Ocampo Sr. DO Work Phone: [facility] 07-28-2024 15:31-0400 Body temperature 98.4 [degF] Dr. Jacobo Moya DO Work Phone: [facility] 07-28-2024 15:31-0400 Diastolic blood pressure 47 mm[Hg] Dr. Jacobo Moya DO Work Phone: [facility] 07-28-2024 15:31-0400 Heart rate 98 /min Dr. Jacobo Moya DO Work Phone: [facility] 07-28-2024 15:31-0400 Inhaled oxygen flow rate 2 L/min Dr. Jacobo Moya DO Work Phone: [facility] 07-28-2024 15:31-0400 Respiratory rate 18 /min Dr. Jacobo Moya DO Work Phone: [facility] 07-28-2024 15:31-0400 SaO2% (BldA) [Mass fraction] 98 % Dr. Jacobo Moya DO Work Phone: 5(992)491-681444 [place] [address] 07-28-2024 15:31-0400 Systolic blood pressure 124 mm[Hg] Dr. Jacobo Moya DO Work Phone: 6(351)698-849144 [place] [address] 07-26-2024 13:46-0400 Body height 152.[address] Jacobo Moya DO Work Phone: 9(659)975-821644 [place] [address] 07-26-2024 13:46-0400 Body mass index (BMI) [Ratio] 20.9 kg/m2 Dr. Jacobo Moya DO Work Phone: 8(054)137-890844 [place] [address] 07-26-2024 13:46-0400 Body weight 48.[address] Jacobo Moya DO Work Phone: 1(712)519-958327 [place] [address] 07-25-2024 18:05-0400 Body height 152.[address] Jacobo Moya DO Work Phone: 1(887)761-378127 [place] [address] 07-25-2024 18:05-0400 Body mass index (BMI) [Ratio] 21.1 kg/m2 Dr. Jacobo Moya DO Work Phone: 2(292)347-120244 [place] [address] 07-25-2024 18:05-0400 Body weight 48.[address] Jacobo Moya DO Work Phone: 5(000)963-310644 [place] [address] 07-25-2024 18:03-0400 Body temperature 97.8 [degF] Dr. Jacobo Moya DO Work Phone: 1(502)865-694544 [place] [address] 07-25-2024 18:03-0400 Diastolic blood pressure 64 mm[Hg] Dr. Jacobo Moya DO Work Phone: 0(029)395-704044 [place] [address] 07-25-2024 18:03-0400 Heart rate 63 /min Dr. Jacobo Moya DO Work Phone: 5(288)185-569444 [place] [address] 07-25-2024 18:03-0400 Respiratory rate 16 /min Dr. Jacobo Moya DO Work Phone: 1(643)769-917744 [place] [address] 07-25-2024 18:03-0400 SaO2% (BldA) [Mass fraction] 99 % Dr. Jacobo Moya DO Work Phone: [facility] 07-25-2024 18:03-0400 Systolic blood pressure 132 mm[Hg] Dr. Jacobo Moya DO Work Phone: [facility] 07-25-2024 16:27-0400 Inhaled oxygen flow rate 2 L/min Dr. Jacobo Moya DO Work Phone: [facility] 11-06-2022 21:33-0400 Heart rate 79 /min Dr. Amalia Donahue Work Phone: [facility] 11-06-2022 21:33-0400 Inhaled oxygen flow rate 3 L/min Dr. Amalia Donahue Work Phone: [facility] 11-06-2022 21:33-0400 SaO2% (BldA) [Mass fraction] 97 % Dr. Amalia Donahue Work Phone: [facility] 11-06-2022 20:00-0400 Diastolic blood pressure 85 mm[Hg] Dr. Amalia Donahue Work Phone: [facility] 11-06-2022 20:00-0400 Respiratory rate 27 /min Dr. Amalia Donahue Work Phone: [facility] 11-06-2022 20:00-0400 Systolic blood pressure 172 mm[Hg] Dr. Amalia Donahue Work Phone: [facility] 11-06-2022 19:00-0400 Body temperature 98.3 [degF] Dr. Amalia Donahue Work Phone: [facility] 11-06-2022 16:27-0400 Body height 152.[address] Amalia Donahue Work Phone: [facility] 11-06-2022 16:27-0400 Body mass index (BMI) [Ratio] 21.4 kg/m2 Dr. Amalia Donahue Work Phone: [facility] 11-06-2022 16:27-0400 Body weight 49.[address] Amalia Donahue Work Phone: 0(279)706-992928 [place] [address] 11-02-2022 12:18-0400 Body mass index (BMI) [Ratio] 21.1 kg/m2 Dr. Amalia Donahue Work Phone: [facility] 11-02-2022 12:00-0400 Body temperature 98 [degF] Dr. Amalia Donahue Work Phone: [facility] 11-02-2022 12:00-0400 Diastolic blood pressure 72 mm[Hg] Dr. Amalia Donahue Work Phone: [facility] 11-02-2022 12:00-0400 Heart rate 74 /min Dr. Amalia Donahue Work Phone: 0(330)019-300728 [place] [address] 11-02-2022 12:00-0400 Inhaled oxygen flow rate 1 L/min Dr. Amalia Donahue Work Phone: [facility] 11-02-2022 12:00-0400 Respiratory rate 18 /min Dr. Amalia Donahue Work Phone: [facility] 11-02-2022 12:00-0400 SaO2% (BldA) [Mass fraction] 95 % Dr. Amalia Donahue Work Phone: [facility] 11-02-2022 12:00-0400 Systolic blood pressure 133 mm[Hg] Dr. Amalia Donahue Work Phone: [facility] 11-02-2022 06:00-0400 Body weight 48.[address] Amalia Donahue Work Phone: [facility] 10-31-2022 09:20-0400 Body height 152.[address] Amalia Donahue Work Phone: [facility] 10-30-2022 22:21-0400 Body height 154.94 cm [facility] 10-30-2022 22:21-0400 Body mass index (BMI) [Ratio] 18.8 kg/m2 [facility] 10-30-2022 22:21-0400 Body temperature 98.3 [degF] [facility] 10-30-2022 22:21-0400 Body weight 45.35 kg [facility] 10-30-2022 22:06-0400 Diastolic blood pressure 67 mm[Hg] [facility] 10-30-2022 22:06-0400 Heart rate 75 /min [facility] 10-30-2022 22:06-0400 Respiratory rate 20 /min [facility] 10-30-2022 22:06-0400 SaO2% (BldA) [Mass fraction] 97 % [facility] 10-30-2022 22:06-0400 Systolic blood pressure 168 mm[Hg] [facility] 10-30-2022 21:29-0400 Inhaled oxygen flow rate 4 L/min [facility] 10-27-2022 10:08-0400 Body height 153.67 cm Christ Bray Santechtran Work Phone: EX-Cwvmjnhqhg-[address] [place] Work Phone: 10-27-2022 10:08-0400 Body mass index (BMI) [Ratio] 19.78 kg/m2 Christ Bray Santechtran Work Phone: OQ-Urvogcnxen-Qebz [address] [place] Work Phone: 10-27-2022 10:08-0400 Body surface area Derived from formula 1.42 m2 Christ Bray Santechtran Work Phone: QT-Dnjbtdqtew-Oe[address] [place] Work Phone: 10-27-2022 10:08-0400 Body weight 46.72 kg Christ Bray Santechtran Work Phone: XI-Gmnkfqygfg-Qmy[address] [place] Work Phone: 10-27-2022 10:08-0400 Diastolic blood pressure 48 mm[Hg] Christ Bray Santechtran Work Phone: AK-Qmfyogywno-Bjba [address] [place] Work Phone: 10-27-2022 10:08-0400 Heart rate 90 /min Christ Solorzano Nostran Work Phone: HA-Tzqreervnj-Qzbc [address] [place] Work Phone: 10-27-2022 10:08-0400 SaO2% (BldA) [Mass fraction] 93 % Christ Solorzano Nostran Work Phone: PB-Kqwftrjgvw-Ac[address] [place] Work Phone: 10-27-2022 10:08-0400 Systolic blood pressure 99 mm[Hg] Christ Solorzano Nostran Work Phone: AX-Hiuydgblap-Ct[address] [place] Work Phone: 10-16-2022 07:51-0400 Body temperature 98.29 [degF] Evelin Glen DO Work Phone: [facility] [employer] 10-16-2022 07:51-0400 Diastolic blood pressure 77 mm[Hg] Evelin Glen DO Work Phone: [employer] 10-16-2022 07:51-0400 Heart rate 81 /min [facility]-16[facility] 07:51-0400 Respiratory rate 18 /min Evelin Glen DO Work Phone: [employer] 10-16-2022 07:51-0400 SaO2% (BldA) [Mass fraction] 92 % Evelin Glen DO Work Phone: [employer] 10-16-2022 07:51-0400 Systolic blood pressure 128 mm[Hg] Evelin Glen DO Work Phone: [employer] 10-16-2022 05:00-0400 Body mass index (BMI) [Ratio] 20.14 kg/m2 Evelin Glen DO Work Phone: [employer] 10-16-2022 05:00-0400 Body weight 46.78 kg Evelin Glen DO Work Phone: [facility] 10-15-2022 14:41-0400 Body height 152.4 cm Evelin Salcedo DO Work Phone: [facility] 10-07-2022 13:41-0400 Body mass index (BMI) [Ratio] 20.09 kg/m2 Christ Gardiner DO Work Phone: [facility] 10-07-2022 13:41-0400 Body temperature 97.2 [degF] Christ Gardiner DO Work Phone: [facility] 10-07-2022 13:41-0400 Body weight 47.45 kg Christ Gardiner DO Work Phone: [facility] 10-07-2022 13:41-0400 Diastolic blood pressure 70 mm[Hg] Christ Gardiner DO Work Phone: [facility] 10-07-2022 13:41-0400 Heart rate 67 /min Christ Gardiner DO Work Phone: [facility] 10-07-2022 13:41-0400 Respiratory rate 12 /min Christ Gardiner DO Work Phone: [facility] 10-07-2022 13:41-0400 SaO2% (BldA) [Mass fraction] 90 % Christ Gardiner DO Work Phone: [facility] 10-07-2022 13:41-0400 Systolic blood pressure 122 mm[Hg] Christ Gardiner DO Work Phone: [facility] 09-11-2022 13:01-0400 Body height 153.67 cm Christ Solorzano Maralnell Work Phone: YI-Gylkvboojb-[address]di [address] [place] Work Phone: 09-11-2022 13:01-0400 Body mass index (BMI) [Ratio] 19.59 kg/m2 Christ Solorzano Maraltran Work Phone: EJ-Tzrdezgvgs-Codz [address] [place] Work Phone: 09-11-2022 13:01-0400 Body surface area Derived from formula 1.41 m2 Christ Solorzano Nostran Work Phone: MM-Ennfkebfql-Bwlr [address] [place] Work Phone: 09-11-2022 13:01-0400 Body weight 46.27 kg Christ Solorzano Nostran Work Phone: VK-Whgzmtdrbv-Hbdy [address] [place] Work Phone: 09-11-2022 13:01-0400 Diastolic blood pressure 67 mm[Hg] Christ Solorzano Nostran Work Phone: FJ-Lpbwqwspfe-Zdmc [address] [place] Work Phone: 09-11-2022 13:01-0400 Heart rate 57 /min Christ Solorzano Nostran Work Phone: EL-Xxzprzpvkh-Esum [address] [place] Work Phone: 09-11-2022 13:01-0400 SaO2% (BldA) [Mass fraction] 92 % Christ Solorzano Nostran Work Phone: OW-Rxmmlrbkep-Udzj [address] [place] Work Phone: 09-11-2022 13:01-0400 Systolic blood pressure 135 mm[Hg] Christ Solorzano Nostran Work Phone: GL-Unpmdnelxo-Sjpx [address] [place] Work Phone: 06-19-2022 10:40-0400 Body mass index (BMI) [Ratio] 24.08 kg/m2 Christ Gardiner DO Work Phone: [facility] 06-19-2022 10:40-0400 Body temperature 98.01 [degF] Christ Gardiner DO Work Phone: [facility] 06-19-2022 10:40-0400 Body weight 47.85 kg Christ Gardiner DO Work Phone: [facility] 06-19-2022 10:40-0400 Diastolic blood pressure 66 mm[Hg] Christ Van Nostran DO Work Phone: [facility] 06-19-2022 10:40-0400 Heart rate 61 /min Christ Solorzano Nostran DO Work Phone: [facility] 06-19-2022 10:40-0400 Respiratory rate 16 /min Christ Solorzano Nostran DO Work Phone: [facility] 06-19-2022 10:40-0400 SaO2% (BldA) [Mass fraction] 91 % Christ Solorzano Nostran DO Work Phone: [facility] 06-19-2022 10:40-0400 Systolic blood pressure 113 mm[Hg] Christ Solorzano Nostran DO Work Phone: [facility] 06-12-2022 08:55-0400 Body height 153.67 cm Christ Solorzano Nostran Work Phone: EL-Qeijayadwo-Vxcr [address] [place] Work Phone: 06-12-2022 08:55-0400 Body mass index (BMI) [Ratio] 20.55 kg/m2 Christ Solorzano Nostran Work Phone: SI-Qabgzstpwy-R[address]ta [address] [place] Work Phone: 06-12-2022 08:55-0400 Body surface area Derived from formula 1.44 m2 Christ Solorzano Nostran Work Phone: DY-Bwogjiklsj-Jgwj [address] [place] Work Phone: 06-12-2022 08:55-0400 Body weight 48.54 kg Christ Solorzano Nostran Work Phone: EC-Idzttbdjbb-Bbyn [address] [place] Work Phone: 06-12-2022 08:55-0400 Diastolic blood pressure 65 mm[Hg] Christ Solorzano Nostran Work Phone: CP-Bjhdreqwzd-Ewld [address] [place] Work Phone: 06-12-2022 08:55-0400 Heart rate 68 /min Christ Barontran Work Phone: LC-Anrvwjvfke-Opkm [address] [place] Work Phone: 06-12-2022 08:55-0400 SaO2% (BldA) [Mass fraction] 95 % Christ Barontran Work Phone: GA-Ywjaiciyoy-Vtcl [address] [place] Work Phone: 06-12-2022 08:55-0400 Systolic blood pressure 145 mm[Hg] Christ Barontran Work Phone: KN-Taqafrjule-Gjvc [address] [place] Work Phone: 06-10-2022 13:57-0400 Body mass index (BMI) [Ratio] 24.06 kg/m2 Christ Barontran DO Work Phone: [facility] 06-10-2022 13:57-0400 Body temperature 98.01 [degF] Christ Solorzano Maraltran DO Work Phone: [facility] 06-10-2022 13:57-0400 Body weight 47.81 kg Christ Barontran DO Work Phone: [facility] 06-10-2022 13:57-0400 Diastolic blood pressure 62 mm[Hg] Christ Solorzano Maraltran DO Work Phone: [facility] 06-10-2022 13:57-0400 Heart rate 66 /min Christ Solorzano Maraltran DO Work Phone: [facility] 06-10-2022 13:57-0400 Respiratory rate 14 /min Christ Solorzano Maraltran DO Work Phone: [facility] 06-10-2022 13:57-0400 SaO2% (BldA) [Mass fraction] 92 % Christmayra Barontran DO Work Phone: [facility] 06-10-2022 13:57-0400 Systolic blood pressure 130 mm[Hg] Chrsit Barontran DO Work Phone: [facility] 05-30-2022 15:11-0400 Heart rate 61 /min Christ Barontran DO Work Phone: [facility] 05-30-2022 15:11-0400 SaO2% (BldA) [Mass fraction] 90 % Christ Solorzano Nostran DO Work Phone: [facility] 05-30-2022 14:57-0400 Body mass index (BMI) [Ratio] 24.35 kg/m2 Christ Solorzano Nostran DO Work Phone: [facility] 05-30-2022 14:57-0400 Body temperature 97.59 [degF] Christ Solorzano Nostran DO Work Phone: [facility] 05-30-2022 14:57-0400 Body weight 48.4 kg Christ Barontran DO Work Phone: [facility] 05-30-2022 14:57-0400 Respiratory rate 12 /min Christ Barontran DO Work Phone: [facility] 04-15-2022 14:18-0500 Body height 141 cm Christ Barontran DO Work Phone: [facility] 04-15-2022 14:18-0500 Body mass index (BMI) [Ratio] 24.9 kg/m2 Christ Barontran DO Work Phone: [facility] 04-15-2022 14:18-0500 Body temperature 97.11 [degF] Christ Barontran DO Work Phone: [facility] 04-15-2022 14:18-0500 Body weight 49.49 kg Christ Barontran DO Work Phone: [facility] 04-15-2022 14:18-0500 Diastolic blood pressure 60 mm[Hg] Christ Barontran DO Work Phone: [facility] 04-15-2022 14:18-0500 Heart rate 63 /min Christ Barontran DO Work Phone: [facility] 04-15-2022 14:18-0500 Respiratory rate 14 /min Christ Barontran DO Work Phone: [facility] 04-15-2022 14:18-0500 SaO2% (BldA) [Mass fraction] 92 % Christ Barontran DO Work Phone: [facility] 04-15-2022 14:18-0500 Systolic blood pressure 108 mm[Hg] Christ Rashad Maralnell DO Work Phone: [facility] 03-12-2022 09:59-0500 Body height 153.67 cm Christ Barontran Work Phone: HB-Kdvehkxlqh-Bbxt a Work Phone: 03-12-2022 09:59-0500 Body mass index (BMI) [Ratio] 20.94 kg/m2 Christ Barontran Work Phone: NM-Yrvkijkrul-Yrfq a Work Phone: 03-12-2022 09:59-0500 Body surface area Derived from formula 1.45 m2 Christ Gardiner Work Phone: BJ-Ykrktfwrdl-Ulzh a Work Phone: 03-12-2022 09:59-0500 Body weight 49.44 kg Christ Barontran Work Phone: IB-Ijapajyjje-Uziv a Work Phone: 03-12-2022 09:59-0500 Diastolic blood pressure 70 mm[Hg] Christ Solorzano Maraltran Work Phone: HL-Xpkhqvvlwb-Chyy a Work Phone: 03-12-2022 09:59-0500 Heart rate 62 /min Christ Barontran Work Phone: ZC-Ktuhznpajl-Hxqz a Work Phone: 03-12-2022 09:59-0500 SaO2% (BldA) [Mass fraction] 92 % Christ E Van Nostran Work Phone: NR-Hwemoxfleo-Etxi a Work Phone: 03-12-2022 09:59-0500 Systolic blood pressure 129 mm[Hg] Christ Bray Van Nostran Work Phone: CZ-Lwicmgdimh-Ndqj a Work Phone: 10-16-2021 10:45-0400 Body mass index (BMI) [Ratio] 20.36 kg/m2 Christ Bray Van Nostran Work Phone: [facility] Work Phone: 10-16-2021 10:45-0400 Body surface area Derived from formula 1.43 m2 Christ Bray Van Nostran Work Phone: [facility] Work Phone: 10-16-2021 10:45-0400 Body temperature 97.7 [degF] Christ Bray Van Nostran Work Phone: [facility] Work Phone: 10-16-2021 10:45-0400 Body [...] SaO2% (BldA) [Mass fraction] 93 % Christ E Van Nostran Work Phone: [facility] Work Phone: 10-16-2021 10:45-0400 Systolic blood pressure 150 mm[Hg] Christ Solorzano Nostran Work Phone: [facility] Work Phone: 08-14-2021 13:12-0400 Body height 153.67 cm Christ Solorzano Nostran Work Phone: EA-Zuwmzvboql-Ewhd na [address] [place] Work Phone: 08-14-2021 13:12-0400 Body mass index (BMI) [Ratio] 20.36 kg/m2 Christ Barontran Work Phone: SE-Tbieptlofd-Cmpz na [address] [place] Work Phone: 08-14-2021 13:12-0400 Body surface area Derived from formula 1.43 m2 Christ Solorzano Nostran Work Phone: LP-Wfvgleoriu-Pmgu na [address] [place] Work Phone: 08-14-2021 13:12-0400 Body weight 48.08 kg Christ Solorzano Nostran Work Phone: AJ-Cbxsypchmk-Yefd na [address] [place] Work Phone: 08-14-2021 13:12-0400 Diastolic blood pressure 72 mm[Hg] Christ Asa Rashad Nostran Work Phone: HS-Rbpzfzhtbw-Rdaz na [address] [place] Work Phone: 08-14-2021 13:12-0400 Heart rate 64 /min Christ Asa Rashad Nostran Work Phone: LX-Ysofrnsguc-Hrgt na 140 [place] Work Phone: 08-14-2021 13:12-0400 SaO2% (BldA) [Mass fraction] 96 % Christ Bray Rashad Nostran Work Phone: IM-Xjgyrwbejo-Rfuq na [address] [place] Work Phone: 08-14-2021 13:12-0400 Systolic blood pressure 142 mm[Hg] Christ Bray Van Nostran Work Phone: WO-Aycdqqvvdw-Qfte na [address] [place] Work Phone: 04-11-2021 10:39-0500 Body height 153.67 cm Christ Bray Van Nostran Work Phone: [facility] Work Phone: 04-11-2021 10:39-0500 Body mass index (BMI) [Ratio] 20.07 kg/m2 Christ Bray Van Nostran Work Phone: [facility] Work Phone: 04-11-2021 10:39-0500 Body surface area Derived from formula 1.43 m2 Christ Bray Van Nostran Work Phone: [facility] Work Phone: 04-11-2021 10:39-0500 Body temperature 97.5 [degF] Christ Bray Van Nostran Work Phone: [facility] Work Phone: 04-11-2021 10:39-0500 Body weight 47.4 kg Christ Bray Van Nostran Work Phone: [facility] Work Phone: 04-11-2021 10:39-0500 Diastolic blood pressure 72 mm[Hg] Christ Bray Van Nostran Work Phone: [facility] Work Phone: 04-11-2021 10:39-0500 Heart rate 63 /min Christ Bray Van Nostran [facility] Phone: [facility] Work Phone: 04-11-2021 10:39-0500 Respiratory rate 10 /min Christ Bray Van Nostran Work Phone: [facility] Work Phone: 04-11-2021 10:39-0500 SaO2% (BldA) [Mass fraction] 96 % Christ Gardiner Work Phone: [facility] Work Phone: 04-11-2021 10:39-0500 Systolic blood pressure 116 mm[Hg] Christ [facility]ontran [facility]: [facility] Work Phone: 04-05-2021 11:27-0500 Body height 153.67 cm Christ Gardiner Work Phone: HF-Kjpjvvznco-Tnrz a Work Phone: 04-05-2021 11:27-0500 Body mass index (BMI) [Ratio] 19.98 kg/m2 Christ Gardiner Work Phone: PB-Bsmcryioux-Jlmk a Work Phone: 04-05-2021 11:27-0500 Body surface area Derived from formula 1.42 m2 Christ Gardiner Work Phone: YK-Dfrnegixyn-Drth a Work Phone: 04-05-2021 11:27-0500 Body weight 47.17 kg Christ Gardiner Work Phone: OW-Hgckikrkst-Qycb a Work Phone: 04-05-2021 11:27-0500 Diastolic blood pressure 40 mm[Hg] Christ Gardiner Work Phone: KV-Bmmhxtymrc-Zykj a Work Phone: 04-05-2021 11:27-0500 Heart rate 63 /min Christ Solorzano Nostran Work Phone: MX-Uhdtesvwvl-Guxm a Work Phone: 04-05-2021 11:27-0500 SaO2% (BldA) [Mass fraction] 95 % Christ Barontran Work Phone: EV-Tullhxhqyp-Vcvy a Work Phone: 04-05-2021 11:27-0500 Systolic blood pressure 82 mm[Hg] Christ Gardiner Work Phone: PP-Jsnitxiwuo-Ulpn a Work Phone: 03-08-2021 14:30-0500 Body height 153.67 cm Christ Gardiner Work Phone: XT-Udlvcjtjfl-Gsag na Work Phone: 03-08-2021 14:30-0500 Body mass index (BMI) [Ratio] 19.59 kg/m2 Christ Asa Rashad Agosto Work Phone: UR-Pmmzhmgylw-Abam na Work Phone: 03-08-2021 14:30-0500 Body surface area Derived from formula 1.41 m2 Christ Asa Rashad Agosto Work Phone: LQ-Hfetdryvfo-Xlxy na Work Phone: 03-08-2021 14:30-0500 Body weight 46.27 kg Christ Gardiner Work Phone: LL-Eoymnkrlhk-Wzpk na Work Phone: 03-08-2021 14:30-0500 Diastolic blood pressure 74 mm[Hg] Christ Asa Rashad Agosto Work Phone: CX-Klctotjfyy-Erzo na Work Phone: 03-08-2021 14:30-0500 Heart rate 59 /min Christ Asa Rashad Agosto Work Phone: GJ-Xijnvtizer-Ahjo na Work Phone: 03-08-2021 14:30-0500 SaO2% (BldA) [Mass fraction] 94 % Christ E Rashad Aliciatran Work Phone: UO-Osaymzmdnd-Zyyx na Work Phone: 03-08-2021 14:30-0500 Systolic blood pressure 144 mm[Hg] Christ Bray Rashad Aliciatran Work Phone: NB-Vlbkfmslyg-Icsw na Work Phone: 03-08-2021 14:30-0500 0 1 Christ Bray Van Nostran Work Phone: QK-Lplgcwplyr-Jlaw na Work Phone: Comment on above: [employer] [...] 10:53-0400 Diastolic blood pressure 61 mm[Hg] Christ E Van Nostran Work Phone: [facility] Work Phone: 09-10-2020 10:53-0400 Systolic blood pressure 163 mm[Hg] Christ Bray Van Nostran Work Phone: [facility] Work Phone: 09-10-2020 10:00-0400 Body height 152.4 cm Christ Bray Van Nostran Work Phone: [facility] Work Phone: 09-10-2020 10:00-0400 Body mass index (BMI) [Ratio] 19.53 kg/m2 Christ Bray Van Nostran Work Phone: [facility] Work Phone: 09-10-2020 10:00-0400 Body surface area Derived from formula 1.39 m2 Christ Bray Van Nostran Work Phone: [facility] Work Phone: 09-10-2020 10:00-0400 Body temperature 96.2 [degF] Christ Solorzano Nostran Work Phone: [facility] Work Phone: 09-10-2020 10:00-0400 Body weight 45.36 kg Christ Bray Van Nostran Work Phone: [facility] Work Phone: 09-10-2020 10:00-0400 Diastolic blood pressure 66 mm[Hg] Christ Bray Van Nostran Work Phone: [facility] Work Phone: 09-10-2020 10:00-0400 Heart rate 59 /min Christ Bray Van Nostran Work Phone: [facility] Work Phone: 09-10-2020 10:00-0400 SaO2% (BldA) [Mass fraction] 98 % Christ Bray Van Nostran Work Phone: [facility] Work Phone: 09-10-2020 10:00-0400 Systolic blood pressure 158 mm[Hg] Christ Bray Van Nostran Work Phone: [facility] Work Phone: 07-30-2020 14:11-0400 Body height 182.88 cm Christ E Van Nostran Work Phone: [facility] Work Phone: 07-30-2020 14:11-0400 Body mass index (BMI) [Ratio] 10.58 kg/m2 Christ Solorzano Nostran Work Phone: [facility] Work Phone: 07-30-2020 14:11-0400 Body surface area Derived from formula 1.43 m2 Christ Bray Rashad Aliciatran Work Phone: [facility] Work Phone: 07-30-2020 14:11-0400 Body temperature 97.7 [degF] Christ Asa Rashad Aliciatran Work Phone: [facility] Work Phone: 07-30-2020 14:11-0400 Body weight 35.38 kg Christ Asa Rashad Aliciatran Work Phone: [facility] Work Phone: 07-30-2020 14:11-0400 Heart rate 67 /min Christ Asa Solorzano Triny Work Phone: [facility] Work Phone: 03-12-2020 11:53-0500 BMI (Body Mass Index) 19.96 kg/m2 Christ Gardiner [facility] Work Phone: 03-12-2020 11:53-0500 Body Temperature 97 [degF] Christ Gardiner [facility] Work Phone: 03-12-2020 11:53-0500 Body weight 46.35 kg Christ Gardiner [facility] Work Phone: 03-12-2020 11:53-0500 BP Diastolic 82 mm[Hg] Christ Gardiner [facility] Work Phone: 03-12-2020 11:53-0500 BP Systolic 135 mm[Hg] Christ Rashad Nostran [facility] Work Phone: 03-12-2020 11:53-0500 BSA (Body Surface Area) 1.4 m2 Christ Solorzano Nostran [facility] Work Phone: 03-12-2020 11:53-0500 Pulse (Heart Rate) 74 /min Christ Solorzano Nostran [facility] Work Phone: 03-12-2020 11:53-0500 Pulse Oximetry 98 % Christ Van Nostran [facility] Work Phone: 09-06-2019 12:14-0400 BMI (Body Mass Index) 20.15 kg/m2 Christ Van Nostran [facility] Work Phone: 09-06-2019 12:14-0400 Body Temperature 98 [degF] Christ Van Nostran [facility] Work Phone: 09-06-2019 12:14-0400 Body weight 46.81 kg Christ Van Nostran [facility] Work Phone: 09-06-2019 12:14-0400 BP Diastolic 71 mm[Hg] Christ Solorzano Nostran [facility] Work Phone: 09-06-2019 12:14-0400 BP Systolic 128 mm[Hg] Christ Solorzano Nostran [facility] Work Phone: 09-06-2019 12:14-0400 BSA (Body Surface Area) 1.41 m2 Christ Solorzano Nostran [facility] Work Phone: 09-06-2019 12:14-0400 Pulse (Heart Rate) 59 /min Christ Solorzano Nostran [facility] Work Phone: 09-06-2019 12:14-0400 Pulse Oximetry 93 % Christ Solorzano Nostran [facility] Work Phone: 12-10-2018 12:32-0400 BMI [...] Phone: 12-10-2018 12:32-0400 Respiratory Rate 12 /min Fela Lorenzoca [facility] Work Phone: 11-30-2018 16:28-0400 BMI (Body Mass Index) 18.75 kg/m2 Costa Nieto [facility] Work Phone: 11-30-2018 16:28-0400 Body Temperature 97.7 [degF] Costa Nieto [facility] Work Phone: 11-30-2018 16:28-0400 Body weight 43.55 kg Costa Nieto [facility] Work Phone: 11-30-2018 16:28-0400 BP Diastolic 71 mm[Hg] Costa Nieto [facility] Work Phone: 11-30-2018 16:28-0400 BP Systolic 110 mm[Hg] Costa Nieto [facility] Work Phone: 11-30-2018 16:28-0400 BSA (Body Surface Area) 1.37 m2 Costa Nieto [facility] Work Phone: 11-30-2018 16:28-0400 Pulse (Heart Rate) 68 /min Costa Nieto [facility] Work Phone: 11-30-2018 16:28-0400 Pulse Oximetry 96 % Costa Nieto [facility] Work Phone: 11-30-2018 16:28-0400 Respiratory Rate 12 /min Costa Nieto [facility] Work Phone: 05-26-2018 16:15-0400 BMI (Body Mass Index) 18.98 kg/m2 [facility] Work Phone: 05-26-2018 16:15-0400 Body Temperature 98.1 [degF] [facility] Work Phone: 05-26-2018 16:15-0400 Body weight 44.08 kg Chrisnhta Hugo [facility] Work Phone: 05-26-2018 16:15-0400 BP Diastolic 72 mm[Hg] [facility] Work Phone: 05-26-2018 16:15-0400 BP Systolic 124 mm[Hg] [facility] Work Phone: 05-26-2018 16:15-0400 BSA (Body Surface Area) 1.37 m2 [facility] Work Phone: 05-26-2018 16:15-0400 Pulse (Heart Rate) 58 /min [facility] Work Phone: 05-26-2018 16:15-0400 Pulse Oximetry 95 % Ben[facility] Work Phone: 05-26-2018 16:15-0400 Respiratory Rate 12 /min [facility] Work Phone: 05-26-2018 16:15-0400 Weight 44.08 kg Benjy Zepeda [facility] Work Phone: 07-07-2017 07:35-0400 Body temperature 37.0 degrees C [facility] Comment on above: Result Comment: NOTE: PATIENT RESULTS AR E NOT CORRECTED FOR TEMPERATURE. Performed By: #### U AMIC ####[place] [address] 07-06-2017 17:24-0400 Body temperature 37.0 degrees C [facility] Comment on above: Result Comment: NOTE: PATIENT RESULTS AR E NOT CORRECTED FOR TEMPERATURE. Performed By: #### U A ####[address] [address] 07-03-2017 03:35-0400 Body temperature 37.0 degrees C [facility] Comment on above: Result Comment: NOTE: PATIENT RESULTS AR E NOT CORRECTED FOR TEMPERATURE. Performed By: #### L IPID ####[place] [address] Encounters Encounter Date Encounter Type Care Provider Facility Start: 08-17-2024 End: 08-17-[address] Kaden Corcoran MD -[facility] Start: 08-17-2024 End: 08-17-[address] Jacobo Moya DO Work Phone: -[facility] Start: 08-05-2024 Non-patient / Non-visit Dr. Neymar Cunningham MD -[facility] Work Phone: Start: 08-04-2024 Non-patient / Non-visit Dr. Neymar Cunningham MD -[facility] Work Phone: Start: 08-04-2024 End: 08-04-2024 ambulatory [facility] Facility:[facility] Start: 08-04-2024 End: 08-04-2024 Non-patient / Non-visit Dr. Colten Palacios MD -[facility] Work Phone: Start: 08-03-2024 Non-patient / Non-visit Nomi Lee nd [facility] Start: 08-03-2024 Non-patient / Non-visit Dr. Turner [facility] Work Phone: Start: 08-02-2024 End: 08-05-2024 Evaluation and management of inpatient Dr. Janine Harrison MD -[facility] 3 Work Phone: Start: 08-02-2024 ambulatory Kam Terrence Sr. Facili ty:[facility] Start: 08-02-2024 Registered Referred Kam Ocampo MD -[facility] Start: 08-01-2024 ambulatory Kam Terrence Sr. Facili ty:[facility] Start: 08-01-2024 Registered Referred Kamwilber Ocampo MD -[facility] Start: 07-28-2024 Non-patient / Non-visit Dr. Neymar Cunningham MD -[facility] Work Phone: Start: 07-27-2024 Non-patient / Non-visit Dr. Neymar Cunningham MD -[facility] Work Phone: Start: 07-27-2024 Non-patient / [facility] Start: 07-26-2024 Non-patient / [facility] Start: 07-26-2024 Non-patient / Non-visit Dr. Neymar Cunningham MD -[facility] Work Phone: Start: 07-26-2024 ambulatory Kam Ocampo Sr. Facili ty:[facility] Start: 07-26-2024 Non-patient / Non-visit [facility] Nik[facility] Start: 07-25-2024 Non-patient / Non-visit Dr. Thanh chopra DO -[facility] Start: 07-25-2024 ambulatory Kam Ocampo Sr. Facili ty:[facility] Start: 07-25-2024 End: 07-28-2024 Evaluation and management of inpatient Dr. Hayden Diaz DO -[facility] 3 Work Phone: Start: 04-14-2024 End: 04-14-[address] Kam Ocampo Sr., DO Work Phone: [facility] Work Phone: Start: 04-14-2024 End: 04-14-2024 Departed Referred Kam Rizzo [facility] Start: 04-14-2024 End: 04-14-2024 ambulatory Kam Ocampo Sr. Facility:[facility] Start: 02-09-2024 ambulatory Kam Ocampo Sr. Facili ty:[facility] Start: 02-09-2024 Registered Referred Kam StapletonApostjoaquin [facility] Start: 02-08-2024 End: 02-08-2024 Departed Referred Kam StapletonApostjoaquin [facility] Start: 02-08-2024 End: 02-08-2024 ambulatory Kam Ocampo Sr. Facility:[facility] Start: 01-26-2024 End: 01-26-2024 Departed Referred Kam Manuelstjoaquin [facility] Start: 01-26-2024 End: 01-26-2024 ambulatory Kam FUCHS Facility:[facility] Start: 01-10-2024 End: 01-10-2024 ambulatory Kam FUCHS Facility:[facility] Start: 12-14-2023 End: 12-14-2023 ambulatory Kam FUCHS Facility:[facility] Start: 10-21-2023 End: 10-21-2023 ambulatory Kam FUCHS Facility:[facility] Start: 09-16-2023 ambulatory Kam FUCHS Facili ty:[facility] Start: 09-02-2023 End: 09-02-2023 ambulatory Kam FUCHS Facility:[facility] Start: 04-15-2023 End: 04-15-2023 ambulatory [facility] Work Phone: Start: 04-15-2023 End: 04-15-2023 Departed Referred [facility] Start: 03-11-2023 End: 03-11-2023 Departed Referred [facility] Start: 02-19-2023 End: 02-19-2023 ambulatory [facility] Work Phone: Start: 02-19-2023 End: 02-19-2023 [facility] Start: 02-19-[address] Amalia Donahue Work Phone: [facility] Start: 02-10-2023 End: 02-10-[address] Amalia Donahue Work Phone: [facility] Work Phone: Start: 02-10-2023 End: 02-10-[address] Amalia Donahue Work Phone: [facility] Start: 01-27-2023 End: 01-27-[address] Amalia Donahue Work Phone: [facility] Start: 12-22-2022 End: 12-22-[address] Amalia Donahue Work Phone: [facility] Work Phone: Start: 12-22-2022 End: 12-22-[address] Amalia Donahue Work Phone: [facility] Work Phone: Start: 12-02-2022 End: 12-02-[address] Amalia Donahue Work Phone: [facility] Work Phone: Start: 12-02-2022 End: 12-02-[address] Amalia Donahue Work Phone: [facility] Start: 12-02-[address] Amalia Donahue Work Phone: [facility] Start: 12-01-2022 End: 12-01-[address] Amalia Donahue Work Phone: [facility] Work Phone: Start: 12-01-2022 End: 12-01-[address] Amalia Donahue Work Phone: [facility] Start: 11-28-[address] Amalia Donahue Work Phone: [facility] Start: 11-10-[address] Amalia Donahue Work Phone: [facility] Start: 11-06-2022 End: 11-07-2022 Emergency department patient visit Dr. Amalia Donahue Work Phone: [facility] Work Phone: Start: 11-06-[address] Amalia Donahue Work Phone: [facility] Start: 11-02-2022 Non-patient / Non-visit Dr. Shelbi Donahue Work Phone: [facility] Work Phone: Start: 11-01-2022 Non-patient / Non-visit Dr. Shelbi Donahue Work Phone: [facility] Work Phone: Start: 10-31-2022 Non-patient / Non-visit Dr. Shelbi Donahue Work Phone: [facility] Work Phone: Start: 10-31-2022 Non-patient / Non-visit Dr. Shelbi Donahue Work Phone: [facility] Start: 10-31-2022 Non-patient / Non-visit Dr. Shelbi Donahue Work Phone: [facility] Start: 10-30-2022 End: 11-02-2022 [facility] Work Phone: Start: 10-27-2022 Office outpatient vi sit 15 minutes Christ Gardiner Work Phone: XQ-Elxjitdqqu-Kspgvxgm [address] [place] Work Phone: Start: 10-10-2022 Evaluation and management of inpatient [facility] Start: 10-10-2022 End: 10-16-2022 Evaluation and management of inpatient Evelin Salcedo DO Work Phone: [facility]LE[facility] Comment on above: Proctocolitis (Prima ry Dx); Abdominal pain, generalized; Constipation, unspecified constipation type Start: 10-07-2022 End: 10-07-2022 [facility] Start: 10-07-2022 End: 10-07-2022 Office outpatient visit 25 minutes Christ Gardiner DO Work Phone: [facility] Comment on above: Benign essential hyp ertension (Primary Dx); Osteoporosis, unspecified osteoporosis type, unspecified pathological fracture presence; Coronary artery disease without angina pectoris, unspecified vessel or lesion type, unspecified whether [place] or transplanted heart; Stage 3a chronic kidney disease (CMS/HCC); Hypercholesterolemia; Allergic rhinitis, unspecified seasonality, unspecified trigger; Multiple allergies; Lower abdominal pain; Anemia in other chronic diseases classified elsewhere Start: 09-11-2022 Office outpatient vi sit 10 minutes Christ Gardiner Work Phone: JQ-Qzzjklanho-Lbodii [address] [place] Work Phone: Start: 09-11-[address] Christ Gardiner Facility:[id number] Start: 08-27-2022 AUDIT Christ Vazquez Work Phone: KF-Uwvycfmolg-Cqswl Work Phone: Start: 06-30-[address] Christ Gardiner Facility:[id number] Start: 06-19-2022 End: 06-19-2022 ambulatory [facility] Ambulatory Start: 06-19-2022 End: 06-19-2022 Office outpatient visit 15 minutes Christ Gardiner DO Work Phone: [facility] Comment on above: Hypoxia; Pneumonia of right lower lobe due to infectious organism; Abdominal pain, unspecified abdominal location Start: 06-12-2022 Office outpatient vi sit 15 minutes Christ Gardiner Work Phone: UW-Lybdckcdqo-Lpiugalt [address] [place] Work Phone: Start: 06-12-2022 ambulatory Ms. Apple Gorman lity:[id number] Start: 06-10-2022 End: 06-10-2022 ambulatory [facility] Ambulatory Start: 06-10-2022 End: 06-10-2022 Office outpatient visit 25 minutes Christ Barontran DO Work Phone: [facility] Comment on above: Pneumonia of right l ower lobe due to infectious organism (Primary Dx); Hypoxia; Benign essential hypertension; Abdominal pain, unspecified abdominal location; Pneumonia of right lung due to infectious organism, unspecified part of lung Start: 05-30-[address] Christ Gardiner Facility:[id number] Start: 05-30-2022 End: 05-30-2022 ambulatory [facility] Ambulatory Start: 05-30-2022 End: 05-30-2022 Office outpatient visit 40 minutes Christ Gardiner DO Work Phone: [facility] Comment on above: Hypoxia (Primary Dx) ; Coronary artery disease without angina pectoris, unspecified vessel or lesion type, unspecified whether [place] or transplanted heart; Benign essential hypertension; Pneumonia of right lung due to infectious organism, unspecified part of lung Start: 05-29-2022 End: 05-30-2022 ambulatory CHRIST GARDINER [facility] Start: 05-09-[address] Christ rehman [place] Facility:[id number] Start: 04-15-2022 Encounter for genera l adult medical examination without abnormal findings [facility] Ambulatory Start: 04-15-2022 End: 04-15-2022 ambulatory [facility] [address] Ambulatory Start: 04-15-2022 End: 04-15-2022 Encounter for general adult medical examination without abnormal findings [facility] Ambulatory Start: 04-15-2022 End: 04-15-2022 Assay of hemosiderin, quant Christ Gardiner DO Work Phone: [facility] Work Phone: Start: 04-15-2022 End: 04-15-2022 Patient encounter procedure Christ Gardiner DO Work Phone: [facility] Comment on above: 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 (Primary Dx); Osteoporosis, unspecified osteoporosis type, unspecified pathological fracture presence; Screening for osteoporosis; Postmenopausal estrogen deficiency; Benign essential hypertension; Coronary artery disease without angina pectoris, unspecified vessel or lesion type, unspecified whether [place] or transplanted heart; Gastroesophageal reflux disease, unspecified whether esophagitis present; Stage 3a chronic kidney disease; Bilateral carotid artery stenosis; Aortic valve stenosis, etiology of cardiac valve disease unspecified; Anemia in other chronic diseases classified elsewhere; Hypercholesterolemia; Routine general medical examination at health care facility Start: 04-15-2022 End: 04-15-2022 Patient encounter status Christ Gardiner DO Work Phone: [facility] Work Phone: Start: 04-04-2022 Chart Update Christ E Van N ostran Work Phone: [facility]brks[facility] Work Phone: Start: 03-12-2022 FUV, Provider: Apple Beth, Status: Pen, Time: 11:30 AM Christ Solorzano Nostran Work Phone: [facility] Work Phone: Start: 03-12-2022 CAROTID, Provider: ABDOULAYE ALMANZA [facility], Status: Pen, Time: 10:00 AM Christ Solorzano Nostran Work Phone: [facility] Work Phone: Start: 03-12-2022 ECHO, Provider: RAI HART,MG CARD, Status: Pen, Time: 9:00 AM Christ Gardiner Work Phone: [facility] Work Phone: Start: 03-12-2022 ambulatory GILBERT CHIU JEFF Faci lity:[id number] Start: 03-11-2022 AUDIT Christ Bray Van N ostran Work Phone: [facility] Work Phone: Start: 03-10-2022 AUDIT Christ E Van N ostran Work Phone: [facility] Work Phone: Start: 02-24-2022 AUDIT Christ Bray Van N ostran Work Phone: [facility] Work Phone: Start: 02-19-2022 AUDIT Christ Bray Van N ostran Work Phone: [facility] Work Phone: Start: 10-17-2021 AUDIT Christ Bray Van N ostran Work Phone: [facility] Work Phone: Start: 10-16-[address] Christ Gardiner Facility:[id number] Start: 10-16-2021 Office outpatient vi sit 40 minutes Christ E Van Nostran Work Phone: [facility] Work Phone: Start: 08-14-2021 Office outpatient vi sit 15 minutes Christ Asa Van Nostran Work Phone: OR-Huvanccfjo-Xoc[facility] [address] [place] Work Phone: Start: 07-25-2021 AUDIT Christ Asa Van N ostran Work Phone: [facility] Work Phone: Start: 06-18-2021 AUDIT Christ Asa Van N ostran Work Phone: [facility] Work Phone: Start: 05-27-2021 AUDIT Christ Asa Van N ostran Work Phone: [facility] Work Phone: Start: 05-22-2021 Rx Renewal Christ Bray Van N ostran Work Phone: [facility] Work Phone: Start: 05-21-2021 AUDIT Christ E Van N ostran Work Phone: [facility] Work Phone: Start: 04-18-2021 Chart Update Christ Asa Van N ostran Work Phone: [facility]nk[facility] Work Phone: Start: 04-15-2021 AUDIT Christ Asa Van N ostran Work [...] minutes Christ Bray Van Nostran Work Phone: GZ[facility]Clwx[facility]otzt Work Phone: Start: 04-04-2021 ECHO, Provider: RAI MARTINEZI,MG CARD, Status: Pen, Time: 1:00 PM Christ Bray Van Nostran Work Phone: [facility] Work Phone: Start: 04-03-2021 AUDIT Christ E Van N ostran Work Phone: [facility] Work Phone: Start: 03-08-2021 Current tobacco non- user cad cap copd pv dm Christ Bray Van Nostran Work Phone: ZX[facility]Tmnjt[facility]up[facility] Work Phone: Start: 02-28-2021 AUDIT Christ Bray Van N ostran Work Phone: [facility] Work Phone: Start: 02-20-2021 AUDIT Christ Bray Van N ostran Work Phone: [facility] Work Phone: Start: 01-23-2021 AUDIT Christ Bray Van N ostran Work Phone: [facility] Work Phone: Start: 01-17-2021 AUDIT hCrist Bray Van N ostran Work Phone: [facility] Work Phone: Start: 12-25-2020 Patient encounter procedure Christ Bray Van Nostran Work Phone: [facility] Work Phone: Start: 11-22-2020 AUDIT Christ Bray Van N ostran Work Phone: [facility] Work Phone: Start: 10-29-2020 Patient encounter procedure Christ Bray Van Nostran Work Phone: [facility] Work Phone: Start: 10-26-2020 AUDIT Christ Asa Van N ostran Work Phone: [facility] Work Phone: Start: 10-25-2020 Chart Update Christ Asa Van N ostran Work Phone: [facility] Work Phone: Start: 10-23-2020 Chart Update Christ Bray Van N ostran Work Phone: [facility] Work Phone: Start: 09-10-2020 Office outpatient vi sit 25 minutes Christmayra Solorzano Nostran Work Phone: [facility] Work Phone: Start: 07-30-2020 Office outpatient ne w 30 minutes Christ Barontran [facility] Phone[facility] Work Phone: Start: 07-30-2020 Patient encounter procedure Christ Asa Solorzano Nostran [facility] Phone[facility] Work [facility]: Start: 04-16-2020 Patient encounter procedure Christ Gardiner [facility] Work Phone: Start: 04-06-2020 Office outpatient ne w 30 minutes Christ Solorzano Nostran Work Phone: [facility] Work Phone: Start: 04-06-2020 Patient encounter procedure Christ Solorzano Nostran [facility] Work Phone: Start: 03-22-2020 Patient encounter procedure Christ Barontran [facility] Work Phone: Start: 03-12-2020 Patient encounter procedure Christ Gardiner [facility] Work Phone: Start: 11-09-2019 Patient encounter procedure Christ Van Nostran [facility] Work Phone: Start: 09-06-2019 Patient encounter procedure Christ Rashad Aliciatran [facility] Work Phone: Start: 04-20-2019 Patient encounter procedure Christ Rashad Aliciatran [facility] Work Phone: Start: 03-04-2019 Patient encounter procedure Christ Rashad Aliciatran [facility] Work Phone: Start: 12-29-2018 Patient encounter procedure Christ Rashad Aliciatran [facility] Work Phone: Start: 12-21-2018 Patient encounter procedure Christ Rashad Agosto [facility] Work Phone: Start: 12-10-2018 Patient encounter procedure Fela Ndiaye [facility] Work Phone: Start: 11-30-2018 Patient encounter procedure Costa Nieto [facility] Work Phone: Start: 05-26-2018 Patient encounter procedure Benjy Garnett [facility] Work Phone: Start: 02-24-2018 Patient encounter procedure Benjy Rayaar [facility] Work Phone: Start: 02-11-2018 Patient encounter procedure Benjy Rayaar [facility] Work Phone: Start: 12-09-2017 Patient encounter procedure Eliot Shin Facility:[facility] Start: 11-25-2017 Patient encounter procedure Yui Hugo [facility] Work Phone: Start: 11-19-2017 Patient encounter procedure Niralitai Hugo [facility] Work Phone: Start: 11-06-2017 Patient encounter procedure Niralitai Hugo [facility] Work Phone: Start: 11-06-2017 Patient encounter procedure Benjy Garnett Facility:[facility] Start: 10-22-2017 Patient encounter procedure Benjy Garnett [facility] Work Phone: Start: 10-10-2017 Observation care discharge management Benjy Garnett [facility] Start: 10-10-2017 End: 10-13-2017 Evaluation and management of inpatient Benjy Garnett Facility:[id number] Start: 10-09-2017 Initial observation care/day 50 minutes Benjy Garnett [facility] Start: 10-05-2017 Patient encounter procedure Benjy Garnett Facility:[facility] Start: 09-06-2017 End: 09-08-2017 [facility] Start: 09-05-2017 Emergency dept visit high severity&threat funcj [facility] Start: 09-05-2017 End: 09-05-2017 Patient encounter procedure Maria A Vance Facility:54 Start: 08-26-2017 End: 09-01-2017 Evaluation and management of inpatient Jessenia Tapia Facility:[facility] Start: 08-25-2017 Emergency dept visit high severity&threat funcj [facility] Start: 08-25-2017 End: 08-26-2017 Patient encounter procedure FINESSE PINEDA Facility:54 Start: 08-21-2017 Patient encounter procedure Benjy Garnett Facility:54 Start: 07-28-2017 [facility]ation care discharge [facility] Start: 07-28-2017 End: 07-29-2017 Evaluation and management of inpatient Benjy Garnett Facility:54 Start: 07-27-2017 Sbsq observation care/day 25 minutes [facility] Start: 07-26-2017 Initial observation care/day 50 minutes [facility] Start: 07-09-2017 End: 07-17-2017 Evaluation and management of inpatient Mannyblayne Arana Facility:54 Start: 07-02-2017 End: 07-02-2017 Patient encounter procedure Spencer Hardy Facility:54 Start: 06-18-2017 Patient encounter procedure Benjy Garnett [facility] Work Phone: Start: 04-15-2017 Patient encounter procedure Benjy Garnett [facility] Work Phone: Start: 03-20-2017 Patient encounter procedure Benjy Garnett [facility] Work Phone: Start: 03-02-2017 Patient encounter procedure Benjy Garnett Facility:[facility] Start: 02-16-2017 Patient encounter procedure Benjy Garnett [facility] Work Phone: Start: 01-21-2017 Patient encounter procedure Benjy Garnett Facility:[facility] Start: 01-12-2017 Patient encounter procedure Benjy Garnett [facility] Work Phone: Start: 11-25-2016 Patient encounter procedure Benjy Garnett [facility] Work Phone: Start: 10-01-2016 Patient encounter procedure Benjy Garnett [facility] Work Phone: Start: 07-30-2016 Patient encounter procedure Benjy Garnett [facility] Work Phone: Patient encounter procedure Christ Gardiner Work Phone: [facility] Work Phone: Procedures Date Procedure Procedure Detail Performing Clinician Start: 08-04-[address] Kam craigo Sr. DO Work Phone: Start: 08-04-[address] Kam Ocampo Sr. DO Work Phone: Start: 08-03-2024 CT of head without contrast Dr. Kam barker Sr. DO Work Phone: Start: 08-03-2024 CT of pelvis without contrast Dr. Kam jara Sr. DO Work Phone: Start: 08-02-2024 Antibody screen Kam FUCHS Comment on above: Performed By: #### L500.2500, L100.0500 #### [facility] [address] [place], [address] Performed By: #### B [id number], BTS, BRC, [id number], BAGM ####[facility] [id number] [place], [address] Start: 08-02-2024 Urnls dip stick/tablet reagent auto microscopy Dr. Kam Ocampo Sr. DO Work Phone: Start: 08-02-2024 Computed tomography of abdomen and pelvis with intravenous contrast Dr. Kam Ocampo Sr. DO Work Phone: Start: 08-02-2024 Measurement of occult blood in stool specimen using immunoassay Dr. Kam Ocampo Sr. DO Work Phone: Start: 08-02-[address] Kam Ocampo Sr. DO Work Phone: Start: 08-02-[address] Kam Ocampo Sr. DO Work Phone: Start: 08-02-2024 Total iron binding capacity measurement Dr. Kam Ocampo Sr. DO Work Phone: Start: 07-28-[address] Jacobo [...] DO Work Phone: Start: 07-26-2024 Antibody screen Kam FUCHS Comment on above: Order Comment: S Performed By: #### B TS, [id number] ####[facility] [id number] [place], [place], [id number] Start: 07-25-2024 Urnls dip stick/tablet reagent auto [...] Ct abdomen & pelvis w/contrast material Celeste Crock PA-C Work Phone: Start: 10-10-2022 Urinalysis complete panel - Urine Celeste Crock PA-C Work Phone: Start: 10-10-2022 Urnls dip stick/tablet reagent auto microscopy Celeste Crock PA-C Work Phone: Start: 10-10-2022 SARS-COV-2, FLU A/B, AND RSV COMBO Rache l Crock PA-C Work Phone: Start: 10-10-2022 Basic metabolic panel calcium total Celeste Crock PA-C Work Phone: Start: 10-10-2022 Ecg routine ecg w/least 12 lds i&r only Celeste Crock PA-C Work Phone: Start: 10-07-2022 FOLLOW UP IN ADVANCED PRIMARY CARE - PCP CHRIST GARDINER Start: 06-19-2022 FOLLOW UP IN ADVANCED PRIMARY CARE - PCP CHRIST GARDINER Start: 06-10-2022 FOLLOW UP IN ADVANCED PRIMARY CARE - PCP HCRIST GARDINER Start: 05-30-2022 Radiologic exam chest 2 [...] Gardiner Work Phone: Start: 04-04-2021 Echocardiography Christ Bray Rashad Agosto Work Phone: Start: 04-03-2021 Lipid 1996 panel [...] W Auto Differential panel - Blood Christ Rashad Agosto Start: 12-01-2018 Basic metabolic 1998 panel - [...] Start: 10-09-2017 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 age 6 yr/> [facility] Start: 10-09-2017 Iv infusion hydration each additional hour [facility] Hugo Start: 10-09-2017 Iv infusion ther proph addl sequential to 1 hr [facility] Hugo Start: 10-09-2017 Iv infusion therapy prophylaxis/dx ea hour Chenguttai Hugo Start: 10-09-2017 Iv infusion therapy/prophylaxis /dx 1st to 1 hr [facility] Hugo Start: 10-09-2017 Therapeutic injection iv push each new drug [facility] Hugo Start: 08-26-2017 Drainage of Stomach with Drainage Device, Via Natural or Artificial Opening Jessenia Tapia Start: 08-25-2017 Iv infusion hydration each additional hour [facility] Hugo Start: 08-25-2017 Ther proph/dx njx ea seql iv push sbst/drug fac [facility] Hugo Start: 08-25-2017 Ther proph/dx njx iv push single/1st sbst/drug [facility] Hugo Start: 08-25-2017 Therapeutic injection iv push each new drug [facility] Hugo Start: 07-28-2017 Iv infusion hydration each additional hour Chengnhtai Hugo Start: 07-27-2017 Iv infusion hydration each additional hour Chengnhtai Hugo Start: 07-26-2017 Iv infusion hydration each additional hour [facility] Start: 07-26-2017 Iv infusion therapy/prophylaxis /dx 1st to 1 hr [facility] Hugo Start: 07-07-2017 Echocardiography [facility] Hugo Start: 07-04-2017 Resection of Right Large Intestine, Open Approach [facility] Hugo Start: 07-04-2017 Ultrasonography of Left Jugular Veins, Guidance [facility] Start: 07-02-2017 Antibody screen [facility] Comment on above: Performed By: #### LIPID ####[facility] [id number] [place] [address] Start: 12-11-2011 Exploratory Laparoscopy Chrits Bray Van Nostran Work Phone: Comment on [...] Bray Van Nostran Work Phone: Appendectomy Benjy Cabralkobe marion Comment on above: Completed: 1972 Cataract surgery Benjy Rayaar Comment on above: Completed: 2008 Esophagogastroduodenoscopy C hengutestelayaa CabralHugo History of CABG Benjy lott Comment on above: Completed: 2009 End: 12-11-2011 History of Exploratory Laparoscopy Chris Garnett Hysterectomy Benjy marion Comment on above: Completed: 1972 Partial resection of colon S valentín Bray Van NiteTablestran Work Phone: Screening colonoscopy Chrisjessica bright Hugo Total knee replacement Chris Garnett Comment on above: Completed: 2003 Completed: 2008 Plan of Treatment Date Care Activity Detail Author Start: 05-30-2027 Lipid panel Lipid Panel [facility] Start: 04-03-2026 Lipid panel Lipid Panel [facility] Start: 08-17-2024 Plain x-ray of pelvi s and lower extremity HIP, UNI W/ Pelvis 2-3 Views [facility] Start: 08-17-2024 XR Knee 3 Views [facility] Start: 08-17-2024 XR knee, 3 views Knee 3 Views [facility] Start: 08-17-2024 XR Pelvis and Hip Views [facility] Start: 08-05-2024 Patient discharge [facility] Start: 08-03-2024 Following clinical pathway protocol [facility] Start: 08-03-2024 Application of intermittent pneumatic compression device [facility] Start: 08-02-2024 Assessment of risk o f venous thromboembolism [facility] Start: 08-02-2024 Insertion of cathete r into peripheral vein [facility] Start: 08-02-2024 Measuring intake and output [facility] Start: 08-02-2024 Oxygen therapy [facility] Start: 08-02-2024 Providing care accor ding to standard [facility] Start: 08-02-2024 Provision of activit y privileges [facility] Start: 08-02-2024 Referral to gastroenterology service [facility] Start: 08-02-2024 Referral to occupati onal therapist [facility] Start: 08-02-2024 Referral to service [facility] Start: 08-02-2024 [facility] Start: 08-02-2024 Following clinical pathway protocol [facility] Start: 08-02-2024 Admission procedure [facility] Start: 08-02-2024 Hospital admission, emergency, from emergency room, medical nature [facility] Start: 08-02-2024 End: 08-02-2024 [facility] Start: 08-02-2024 Administration of bl ood product [facility] Start: 08-02-2024 Bacteria identified in Urine by Culture Urine Culture [facility] Start: 08-02-2024 Leukocyte reduced re d blood cells [facility] Start: 08-02-2024 Inhalation therapy procedure [facility] Start: 08-02-2024 Patient referral to dietitian [facility] Start: 07-28-2024 [facility] Start: 07-28-2024 Patient discharge [facility] Start: 07-28-2024 [facility] Start: 07-27-2024 Continuous pulse oximetry [facility] Start: 07-27-2024 Dual pressure sponta neous ventilation support [facility] Start: 07-26-2024 End: 07-26-2024 [facility] Start: 07-26-2024 Ambulation therapy management [facility] Start: 07-26-2024 Application of device W [facility] Start: 07-26-2024 Exercises [facility] Start: 07-26-2024 Following clinical pathway protocol [facility] Start: 07-26-2024 Introduction of urin bhargav catheter [facility] Start: 07-26-2024 Neurovascular assessment [facility] Start: 07-26-2024 Patient education [facility] Start: 07-26-2024 Provision of activit y privileges [facility] Start: 07-26-2024 Recommendation to continue with treatment [facility] Start: 07-26-2024 Referral to occupati onal therapist [facility] Start: 07-26-2024 Referral to service [facility] Start: 07-26-2024 Skin care [facility] Start: 07-26-2024 Vital signs measurements [facility] Start: 07-26-2024 Wound care [facility] Start: 07-26-2024 Continuous positive airway pressure ventilation treatment [facility] Start: 07-26-2024 Inhalation therapy procedure [facility] Start: 07-25-2024 [facility] Start: 07-25-2024 End: 07-25-2024 Following clinical pathway protocol [facility] Start: 07-25-2024 Assessment of risk o f venous thromboembolism [facility] Start: 07-25-2024 Consultation [facility] Start: 07-25-2024 Insertion of cathete r into peripheral vein [facility] Start: 07-25-2024 Oxygen therapy [facility] Start: 07-25-2024 Providing care accor ding to standard [facility] Start: 07-25-2024 Provision of activit y privileges [facility] Start: 07-25-2024 Referral to occupati onal therapist [facility] Start: 07-25-2024 Referral to service [facility] Start: 07-25-2024 [facility] Start: 07-25-2024 Hospital admission, emergency, from emergency room, medical nature [facility] Start: 07-25-2024 Plain X-ray of femur Femur Min 2 Vie ws [facility] Start: 07-25-2024 End: 07-25-2024 Araceli [facility] Start: 07-25-2024 Verification routine Wo mitzi [facility] Start: 07-25-2024 Admission procedure Ridley ster [facility] Start: 07-25-2024 [facility] Start: 07-08-2023 DTaP/Tdap/Td Vaccine s (2 - Td or Tdap) DTaP/Tdap/Td Vaccines (2 - Td or Tdap) [facility] Start: 05-30-2023 Creatinine measurement Creatinine Le tiffany [facility] Start: 05-30-2023 Potassium measurement Potassium Leve l [facility] Start: 05-10-2023 Screening for osteoporosis Bone Density Scan [facility] Start: 04-17-2023 Annual Wellness Visi t (AWV) Annual Wellness Visit (AWV) [facility] Start: 04-17-2023 Medicare Annual Well ness Visit Medicare Annual Wellness Visit (AWV) [facility] Start: 04-09-2023 End: 10-08-2023 CBC W Auto Differential panel - Blood CBC and Auto Differential Lab Routine Anemia in other chronic diseases classified elsewhere Expected: 04/09/2023 (Approximate), Expires: 10/08/2023 [facility] Service Area Work Phone: Comment on above: Expected: 04/09/2023 (Approximate), Expires: 10/08/2023 Start: 04-09-2023 End: 10-08-2023 Comprehensive metabolic 2000 panel - Serum or Plasma Comprehensive Metabolic Panel Lab Routine Stage 3a chronic kidney disease (CMS/HCC) Anemia in other chronic diseases classified elsewhere Expected: 04/09/2023 (Approximate), Expires: 10/08/2023 [facility] Work Phone: Comment on above: Expected: 04/09/2023 (Approximate), Expires: 10/08/2023 Start: 04-09-2023 End: 10-08-2023 Ferritin [Mass/volume] in Serum or Plasma Ferritin Lab Routine Anemia in other chronic diseases classified elsewhere Expected: 04/09/2023 (Approximate), Expires: 10/08/2023 [facility] Work Phone: Comment on above: Expected: 04/09/2023 (Approximate), Expires: 10/08/2023 Start: 04-09-2023 End: 10-08-2023 Iron and Iron binding capacity panel - Serum or Plasma Iron and TIBC Lab Routine Anemia in other chronic diseases classified elsewhere Expected: 04/09/2023 (Approximate), Expires: 10/08/2023 [facility] Work Phone: Comment on above: Expected: 04/09/2023 (Approximate), Expires: 10/08/2023 Start: 04-09-2023 End: 04-09-2023 Patient encounter procedure 04/09/2023 1:30 PM EST Office Visit [facility] [address] [place] [address] Christ Gardiner DO [address] [facility] [address] [place] [address] [facility] Start: 03-18-2023 FUV, Provider: Apple Beth, Status: Pen, Time: 1:00 PM FUV, Provider: Apple Beth, Status: Pen, Time: 1:00 PM WU-Zwmelkldms-Oiro na [address] [place] Work Phone: Start: 03-12-2023 ECHO, Provider: MEDI NA HHVI,MG CARD, Status: Pen, Time: 1:00 PM ECHO, Provider: STANFORD HHVI,MG CARD, Status: Pen, Time: 1:00 PM ZA-Ptghgliqrp-Dxgv na [address] [place] Work Phone: Start: 03-12-2023 Echocardiography Echocardiogram [facility] Start: 12-02-2022 Acid Fast Bacilli Culture Acid Fast Bacilli Culture [facility] Start: 12-02-2022 Acid Fast Bacilli Smear Acid F ast Bacilli Smear [facility] Start: 11-28-2022 Acid Fast Bacilli Culture Acid Fast Bacilli Culture [facility] Start: 11-28-2022 Acid Fast Bacilli Smear Acid F ast Bacilli Smear [facility] Start: 11-06-2022 Oxygen therapy [facility] Start: 11-06-2022 [facility] Start: 11-06-2022 Bacteria identified in Urine by Culture Urine Culture [facility] Start: 11-06-2022 [facility] Start: 11-02-2022 Patient discharge [facility] Start: 11-01-2022 Brain without Contrast Brain without Contrast [facility] Start: 11-01-2022 MR Brain WO contrast [facility] Start: 10-31-2022 Care planning and pr oblem solving actions [facility] Start: 10-31-2022 Brain/Head without Contrast Brain/Head without Contrast [facility] Start: 10-31-2022 CT Unspecified body region WO contrast [facility] Start: 10-30-2022 Bleeding precautions [facility] Start: 10-30-2022 Bedrest [facility] Start: 10-30-2022 Oxygen therapy [facility] Start: 10-30-2022 End: 10-30-2022 [facility] Start: 10-30-2022 Application of intermittent pneumatic compression device [facility] Start: 10-30-2022 Assessment of risk o f venous thromboembolism [facility] Start: 10-30-2022 Continuous pulse oximetry [facility] Start: 10-30-2022 Fall prevention [facility] Start: 10-30-2022 Insertion of cathete r into peripheral vein [facility] Start: 10-30-2022 Maintenance therapy [facility] Start: 10-30-2022 Patient referral to dietitian [facility] Start: 10-30-2022 Providing care accor ding to standard [facility] Start: 10-30-2022 Referral to occupati onal therapist [facility] Start: 10-30-2022 End: 10-30-2022 Referral to service [facility] Start: 10-30-2022 Speech therapy assessment [facility] Start: 10-30-2022 Vital signs measurements [facility] Start: 10-30-2022 Verification routine [facility] Start: 10-30-2022 Admission procedure [facility] Start: 10-30-2022 Following clinical pathway protocol [facility] Start: 10-30-2022 Bleeding precautions [facility] Start: 10-30-2022 Consultation [facility] Start: 10-30-2022 Oxygen therapy [facility] Start: 10-30-2022 Plain [facility] Start: 10-30-2022 [facility] Start: 10-16-2022 Creatinine measurement Creatinine Nacho allen [facility] Start: 10-16-2022 Potassium measurement Potassium Lanny l [facility] Start: 10-16-2022 End: 10-16-2022 Patient encounter procedure 10/16/2022 1:00 PM EDT Office Visit [facility] [address] [place] [address] Christ Gardiner DO [address] [facility], [address] [place], [place] [id number] [facility] Start: 10-10-2022 Influenza vaccination Influenza Vacc ine (#1) [facility] Start: 09-11-2022 FUV, Provider: Apple Beth, Status: Pen, Time: 1:00 PM FUV, Provider: Apple Beth, Status: Pen, Time: 1:00 PM ID-Pefzeygfyn-Semv [address] [place] Work Phone: Start: 09-08-2022 FUV, Provider: Apple Beth, Status: Pen, Time: 11:30 AM FUV, Provider: Apple Beth, Status: Pen, Time: 11:30 AM TF-Dktvzpqttm-Ejnp a Work Phone: Start: 06-30-2022 End: 06-20-2023 XR Chest 2 Views XR chest 2 views Imaging Routine Pneumonia of right lower lobe due to infectious organism Expected: 06/30/2022 (Approximate), Expires: 06/20/2023 [facility] Service Area Work Phone: Comment on above: Expected: 06/30/2022 (Approximate), Expires: 06/20/2023 Start: 06-19-2022 End: 06-19-2022 Patient encounter procedure 06/19/2022 10:40 AM EDT Office Visit [facility] [address] [place] [phone] Christ Gardiner, DO [address] [facility], [address] [place], [place] [phone] [facility] Start: 06-10-2022 End: 06-10-2022 Patient encounter procedure 06/10/2022 1:30 PM EDT Office Visit [facility] [address] [place] [phone] Christ Gardiner, DO [address] [facility], [address] [place], [place] [address] [facility] Start: 04-15-2022 Patient encounter procedure MCRANNUAL, Provider: Christ Gardiner, Status: Pen, Time: 2:00 PM [facility] Work Phone: Start: 04-15-2022 End: 04-16-2023 Basic metabolic 2000 panel - Serum or Plasma Basic Metabolic Panel Lab Routine Benign essential hypertension Coronary artery disease without angina pectoris, unspecified vessel or lesion type, unspecified whether [place] or transplanted heart Expected: 04/15/2022 (Approximate), Expires: 04/16/2023 [facility] Work Phone: Comment on above: Expected: 04/15/2022 (Approximate), Expires: 04/16/2023 Start: 04-15-2022 End: 04-16-2023 CBC panel - Blood by Automated count CBC Lab Routine Benign essential hypertension Coronary artery disease without angina pectoris, unspecified vessel or lesion type, unspecified whether [place] or transplanted heart Expected: 04/15/2022 (Approximate), Expires: 04/16/2023 [facility] Work Phone: Comment on above: Expected: 04/15/2022 (Approximate), Expires: 04/16/2023 Start: 04-15-2022 End: 04-16-2023 DXA Skeletal system Views for bone density XR DEXA bone density Imaging Routine Screening for osteoporosis Postmenopausal estrogen deficiency Expected: 04/15/2022, Expires: 04/16/2023 [facility] Service Area Work Phone: Comment on above: Expected: 04/15/2022 , Expires: 04/16/2023 Start: 04-15-2022 End: 04-16-2023 Lipid 1996 panel - Serum or Plasma Lipid Panel Lab Routine Coronary artery disease without angina pectoris, unspecified vessel or lesion type, unspecified whether [place] or transplanted heart Expected: 04/15/2022 (Approximate), Expires: 04/16/2023 [facility] Work Phone: Comment on above: Expected: 04/15/2022 (Approximate), Expires: 04/16/2023 Start: 04-15-2022 End: 04-16-2023 Magnesium [Mass/volume] in Serum or Plasma Magnesium Lab Routine Benign essential hypertension Expected: 04/15/2022 (Approximate), Expires: 04/16/2023 [facility] Work Phone: Comment on above: Expected: 04/15/2022 (Approximate), Expires: 04/16/2023 Start: 03-22-2022 COVID-19 Vaccine (6 - Moderna series) COVID-19 Vaccine (6 - Moderna series) [facility] Start: 03-12-2022 CAROTID, Provider: [facility], Status: Pen, Time: 2:00 PM CAROTID, Provider: [facility], Status: Pen, Time: 2:00 PM ZC-Xrbgcakjpk-Mdgc na [address] [place] Work Phone: Start: 03-12-2022 ECHO, Provider: MEDI NA [facility], Status: Pen, Time: 1:00 PM ECHO, Provider: [place] [facility], Status: Pen, Time: 1:00 PM ZV-Nwlchyrmsb-Qtyh na [address] [place] Work Phone: Start: 03-12-2022 FUV, Provider: Apple Beth, Status: Pen, Time: 11:30 AM FUV, Provider: Apple Beth, Status: Pen, Time: 11:30 AM [facility] Work Phone: Start: 03-12-2022 CAROTID, Provider: V [facility], Status: Pen, Time: 10:00 AM CAROTID, Provider: [facility], Status: Pen, Time: 10:00 AM [facility] Work Phone: Start: 03-12-2022 ECHO, Provider: MEDI NA HHVI,MG CARD, Status: Pen, Time: 9:00 AM ECHO, Provider: [place] [facility], Status: Pen, Time: 9:00 AM [facility] Work Phone: Start: 10-21-2021 FUV, Provider: Christ Gardiner, Status: Pen, Time: 2:00 PM FUV, Provider: Christ Gardiner, Status: Pen, Time: 2:00 PM [facility] Work Phone: Start: 08-14-2021 EPV, Provider: Apple Beth, Status: Pen, Time: 1:00 PM EPV, Provider: Apple Beth, Status: Pen, Time: 1:00 PM DY-Sccjqafubn-Buld a Work Phone: Start: 06-21-2021 Diabetes mellitus screening Diabetes Screening [facility] Start: 04-11-2021 Patient encounter procedure UG-Kmqqvyrsxj-Hjry na Work Phone: Start: 04-05-2021 FUV, Provider: Apple Beth, Status: Pen, Time: 11:30 AM FUV, Provider: Apple Beth, Status: Pen, Time: 11:30 AM JB-Myvkovfhxc-Voop na Work Phone: Start: 04-04-2021 ECHO, Provider: MEDI NA [facility], Status: Pen, Time: 1:00 PM ECHO, Provider: [place] [facility], Status: Pen, Time: 1:00 PM [facility] Work Phone: Start: 03-18-2021 Patient encounter procedure MCRANNUAL, Provider: Christ Gardiner, Status: Pen, Time: 10:40 AM [facility] Work Phone: Start: 03-08-2021 FUV, Provider: Apple Beth, Status: Pen, Time: 2:30 PM FUV, Provider: Apple Beth, Status: Pen, Time: 2:30 PM [facility] Work Phone: Start: 02-25-2021 EPV, Provider: Apple Beth, Status: Pen, Time: 1:30 PM EPV, Provider: Apple Beth, Status: Pen, Time: 1:30 PM [facility] Work Phone: Start: 12-25-2020 FUV, Provider: Christ Gardiner, Status: Pen, Time: 1:50 PM FUV, Provider: Christ Gardiner, Status: Pen, Time: 1:50 PM [facility] Work Phone: Start: 10-29-2020 FUVHOSP, Provider: Christ Chamberlain, Status: Pen, Time: 7:50 AM FUVHOSP, Provider: Christ Gardiner, Status: Pen, Time: 7:50 AM [facility] Work Phone: Start: 09-10-2020 FUV, Provider: Christ Gardiner, Status: Pen, Time: 10:00 AM FUV, Provider: Christ Gardiner, Status: Pen, Time: 10:00 AM [facility]- davon Work Phone: Start: 03-07-2020 Screening for osteoporosis Bone Density Scan [facility] Start: 12-01-2018 Culture bacterial quanttative colony count urine Cult, Urine [facility] Work Phone: Start: 07-21-2018 Zoster Vaccines (2 of 2) Zoste r Vaccines (2 of 2) [facility] Start: 08-04-2013 DTaP/Tdap/Td Vaccine s (2 - Td or Tdap) DTaP/Tdap/Td Vaccines (2 - Td or Tdap) [facility] Start: 1986 Zoster Vaccines (1 of 2) Zoste r Vaccines (1 of 2) [facility] Start: 1948 Depression Screening Depression Scre ening [facility] Start: 1936 Medicare Annual Well ness (AWV) Medicare Annual Wellness (AWV) [facility] Start: 1935 Screening for osteoporosis Bone Density Scan [facility] Start: 1936 Thyroid stimulating hormone measurement TSH Level [facility] Acid fast bacilli culture [facility] Acid fast bacilli culture [facility] Acid fast bacilli culture [facility] End: 10-10-2022 Bacteria identified in Lower respiratory specimen by Aerobe culture Respiratory culture and Stain Microbiology Routine Once (Lab) for 1 Occurrences starting 10/10/2022 until 10/10/2022 [facility] Work Phone: Comment on above: Once (Lab) for 1 Occ urrences starting 10/10/2022 until 10/10/2022 Basic metabolic 1998 panel - Serum or Plasma Basic Metabolic Panel [facility] Work Phone: Comment on above: Approx [id number] Bilirubin measuremen t, urine [facility] Hematocrit [Volume Fraction] of Blood [facility] Hemoglobin [Mass/vol ume] in Blood [facility] Hemoglobin [Presence ] in Urine [facility] Measurement of keton es in urine using dipstick [facility] Microscopic urinalysis [facility] Mycobacterium sp identified in Unspecified specimen by Organism specific culture [facility] Mycobacterium sp identified in Unspecified specimen by Organism specific culture [facility] Mycobacterium sp identified in Unspecified specimen by Organism specific culture [facility] Patient Education ED Confusion [facility] Work Phone: Patient referral [facility] Work Phone: pH of Urine [facility] Specific gravity of Urine [facility] Urine blood test [facility] Urine culture [facility] Urine dipstick for glucose [facility] Urine dipstick for leukocyte esterase [facility] Urine dipstick for nitrite [facility] Urine dipstick for protein [facility] Urine examination [facility] Urine microscopy: epithelial cells [facility] Urine Microscopy: wh ite cells [facility] Urobilinogen [Presen ce] in Urine [facility] Work Phone: NEGATED: Highlighted row has been ruled out! Planned Goals not documented [facility] Work Phone: Immunizations Immunization Date Immunization Notes Care Provider Fa cility 01-25-2022 Moderna COVID-19 Biv al Booster 50 MCG/0.5ML Intramuscular Suspension Christ Barontran Work Phone: FU-Hevjazrzpf-Falnk [address] [place] Work Phone: 11-23-2021 Fluzone High-Dose Quadrivalent 0.7 ML Intramuscular Suspension Prefilled Syringe Christ Barontran Work Phone: NR-Xjrdcycrlw-Timfe [address] [place] Work Phone: 11-23-2021 influenza virus vaccine, unspecified formulation Christ Gardiner DO Work Phone: [facility] Work Phone: 05-31-2021 Moderna COVID-19 Vaccine 100 MCG/0.5ML Intramuscular Suspension Christ Gardiner Work Phone: [facility] 12-25-2020 Fluzone High-Dose Quadrivalent 0.7 ML Intramuscular Suspension Prefilled Syringe; Translations: [Fluzone High-Dose Quadrivalent 0.7 ML Intramuscular Suspension Prefilled Syringe] Christ Gardiner Work Phone: [facility] Work Phone: Comment on above: Series: 12-25-2020 influenza, seasonal, injectable Christ Gardiner DO Work Phone: [facility] Work Phone: 12-16-2020 Moderna COVID-19 Vaccine 100 MCG/0.5ML Intramuscular Suspension Christ Gardiner Work Phone: [facility] 07-30-2020 Moderna SARS-CoV-2 Vaccination Christ Gardiner DO Work Phone: [facility] Work Phone: 04-25-2020 Moderna COVID-19 Vaccine 100 MCG/0.5ML Intramuscular Suspension Christ Gardiner Work Phone: [facility] Work Phone: 2020 Moderna COVID-19 Vaccine 100 MCG/0.5ML Intramuscular Suspension Christ Gardiner Work Phone: [facility] 10-27-2019 Fluzone High-Dose Quadrivalent 0.7 ML Intramuscular Suspension Prefilled Syringe Christ Bray Rashad Maralnell Work Phone: [facility] Work Phone: 10-11-2019 influenza, high dose seasonal, preservative-free Christmayra Gardiner [facility] Work Phone: Comment on above: Series: 11-30-2018 influenza, high dose seasonal, preservative-free; Translations: [Fluzone High-Dose 0.5 ML Intramuscular Suspension Prefilled Syringe] Costa Nieto [facility] Work Phone: Comment on above: Series: 05-26-2018 zoster vaccine recombinant; Translations: [Shingrix 50 MCG/0.5ML Intramuscular Suspension Reconstituted] Benjy Hugo [facility] Work Phone: 11-06-2017 influenza, injectabl e, quadrivalent, contains preservative [facility] Work Phone: Comment on above: Series: 10-12-2017 influenza, high dose seasonal, preservative-free; Translations: [Influenza, high dose seasonal, preservative-free] [facility] Comment on above: Series: 10-12-2017 pneumococcal conjuga te vaccine, 13 valent; Translations: [Prevnar 13 Intramuscular Suspension] [facility] Comment on above: Series: 10-01-2016 influenza, injectabl e, quadrivalent, contains preservative; Translations: [Flulaval Quadrivalent Intramuscular Suspension] Benjy Garnett [facility] Work Phone: Comment on above: Series: 11-06-2015 influenza, high dose seasonal, preservative-free Christ Solorzano Nostran Work Phone: [facility] dson Work Phone: 10-11-2015 influenza virus vaccine, unspecified formulation Christ Solorzano Nostran Work Phone: [facility] dson Work Phone: Comment on above: Series: 10-11-2015 influenza, seasonal, injectable [facility] Work Phone: 11-16-2014 influenza, seasonal, injectable [facility] Cabralohar [facility] Work Phone: Comment on above: Series: 11-08-2013 influenza, seasonal, injectable [facility] Garnett [facility] Work Phone: Comment on above: Series: 07-07-2013 tetanus toxoid, redu florian diphtheria toxoid, and acellular pertussis vaccine, adsorbed [facility] Cab[facility] Work Phone: Comment on above: Series: 10-12-2012 influenza, seasonal, injectable Christ Sol[facility]zano Nostran [facility] Work Phone: Comment on above: Series: 10-12-2012 influenza, seasonal, injectable [facility] Garnett [facility] Work Phone: 10-24-2011 influenza, seasonal, injectable [facility] Garnett [facility] Work Phone: Comment on above: Series: 11-14-2008 influenza virus vaccine, unspecified formulation Christ Solorzano Nostran Work Phone: [facility] dson Work Phone: Comment on above: Series: 11-14-2008 pneumococcal polysaccharide vaccine, 23 valent Christ Asa Gardiner Work Phone: [facility] Work Phone: Comment on above: Series: 11-14-2008 influenza, seasonal, injectable Benjy Garnett [facility] Work Phone: 11-14-2008 pneumococcal polysaccharide vaccine, 23 valent Benjy Cabralohar [facility] Work Phone: Payers Date Payer Category Payer Unknown [id number] 2023 Self-pay 2023 Unknown [id number] 2023 Unknown [id number] 2008 Unknown 2008 Unknown [id number] 2002 Medicare [id number] 2001 Medicare [id number] 2001 Medicare [id number] 1936 Unknown [id number] 2. 840.1.965500.3.579.2.356 1936 Unknown [id number] 2. 840.1.391240.3.579.2.356 1936 Unknown [id number] 2.16 840.1.462678.3.579.2.356 1936 Unknown [id number] 2.16. 840.1.717415.3.579.2.356 1936 Unknown [id number] 2.16. 840.1.924742.3.579.2.356 1936 Unknown [id number] 2.16. 840.1.826184.3.579.2.356 1936 Unknown [id number] 2.16. 840.1.955461.3.579.2.356 1936 Unknown [id number] 2.16. 840.1.447391.3.579.2.356 1936 Unknown [id number] 2.16. 840.1.393897.3.579.2.356 1936 Unknown [id number] 2.16. 840.1.658472.3.579.2.356 1936 Unknown [id number] 2.16. 840.1.606900.3.579.2.356 1936 Unknown [id number] 2.16. 840.1.497232.3.579.2.356 1936 Unknown [id number] 2.16. 840.1.550708.3.579.2.356 1936 Unknown [id number] 2.16. 840.1.717613.3.579.2.356 1936 Unknown [id number] 2.16.840 .1.485847.3.579.2.1245 1936 Unknown [id number] 2.16.8 40.1.607423.3.579.2.1046 1936 Unknown [id number] 2.16. 840.1.090067.3.579.2.356 1936 Unknown [id number] 2.16. 840.1.633198.3.579.2.356 1936 Unknown [id number] 2.16. 840.1.772437.3.579.2.356 1936 Unknown [id number] 2.16. 840.1.972101.3.579.2.356 1936 Unknown [id number] 2.16. 840.1.105088.3.579.2.356 1936 Unknown [id number] 2.16. 840.1.860780.3.579.2.356 1936 Unknown [id number] 2.16. 840.1.473839.3.579.2.356 1936 Unknown [id number] 2.16.8 40.1.490779.3.579.2.1244 1936 Unknown [id number] 2.16.84 0.1.381367.3.579.2.1244 1936 Unknown [id number] 2.16.84 0.1.376457.3.579.2.1244 1936 Unknown [id number] 2.16.84 0.1.198796.3.579.2.1244 1936 Unknown [id number] 2.16.840 .1.785079.3.579.2.1244 Unknown [id number] 2.16.8 40.1.570426.3.579.2.243 Unknown [id number] Unknown [id number] 2.16.8 40.1.485385.3.579.2.462 Unknown [id number] 2.16.8 40.1.354092.3.579.2.462 Unknown [id number] 2.16.8 40.1.399433.3.579.2.462 Unknown [id number] 2.16.8 40.1.315950.3.579.2.462 Unknown [id number] 2.16.8 40.1.950364.3.579.2.462 Unknown [id number] 2.16.8 40.1.801708.3.579.2.462 Unknown [id number] 2.16.8 40.1.656203.3.579.2.462 Unknown [id number] 2.16.8 40.1.224870.3.579.2.462 Unknown [id number] 2.16.8 40.1.818582.3.579.2.462 Unknown [id number] 2.16.8 40.1.860276.3.579.2.462 Unknown [id number] 2.16.8 40.1.574203.3.579.2.462 Unknown [id number] 2.16.8 40.1.737794.3.579.2.462 Unknown [id number] 2.16.8 40.1.422822.3.579.2.462 Unknown [id number] 2.16.8 40.1.382031.3.579.2.462 Unknown [id number] 2.16.8 40.1.763678.3.579.2.462 Unknown [id number] 2.16.8 40.1.008080.3.579.2.462 Unknown [id number] 2.16.8 40.1.620746.3.579.2.462 Unknown [id number] 2.16.8 40.1.459614.3.579.2.462 Unknown [id number] 2.16.8 40.1.346953.3.579.2.462 Unknown [id number] 2.16.8 40.1.761194.3.579.2.462 Unknown [id number] 2.16.8 40.1.975272.3.579.2.462 Unknown [id number] 2.16.8 40.1.943447.3.579.2.462 Unknown [id number] 2.16.8 40.1.166812.3.579.2.462 Unknown [id number] 2.16.8 40.1.145518.3.579.2.462 Unknown [id number] 2.16.8 40.1.550863.3.579.2.462 Unknown [id number] 2.16.8 40.1.317009.3.579.2.462 Unknown [id number] 2.16.8 40.1.915651.3.579.2.462 Unknown [id number] 2.16.8 40.1.291982.3.579.2.462 Unknown [id number] 2.16.8 40.1.177967.3.579.2.462 Unknown [id number] 2.16.8 40.1.335924.3.579.2.462 Unknown [id number] 2.16.8 40.1.896041.3.579.2.462 Unknown [id number] 2.16.8 40.1.016843.3.579.2.462 Unknown [id number] 2.16.8 40.1.934847.3.579.2.462 Unknown [id number] 2.16.8 40.1.298645.3.579.2.462 Unknown [id number] 2.16.8 40.1.312656.3.579.2.462 Unknown [id number] 2.16.8 40.1.901552.3.579.2.462 Unknown [id number] 2.16.8 40.1.366589.3.579.2.462 Social History Date Type Detail Facility - Never smoker [facility] Work Phone: Start: 04-15-2022 End: 05-30-2022 Caffeine Use Caffeine Use [facility] Start: 04-15-2022 End: 08-02-2024 Tobacco smoking status NHIS Never smoked tobacco [facility] Work Phone: Start: 04-15-2022 Tobacco use and exposure Smoke less tobacco non-user [facility] Work Phone: Start: 04-15-2022 End: 05-30-2022 Alcohol intake Ex-drinker (finding) [facility] Work Phone: Start: 04-15-2022 End: 05-30-2022 Tobacco use panel [facility] Start: 1935 Sex Assigned At Not on file [facility] Work Phone: Start: 04-05-2022 End: 10-10-2022 Exposure to SARS-CoV-2 (event) Not sure [facility] Start: 10-14-2022 Alcohol intake Lifetime non-drinker (finding) [facility] In the past 12 month s, has lack of transportation kept you from medical appointments or from getting medications? No [facility] In the past 12 month s, was there a time when you were not able to pay the mortgage or rent on time? No [facility] Start: 10-30-2022 End: 11-06-2022 Tobacco smoking status NHIS Unknown if ever smoked [facility] Start: 1935 Sex Assigned At Female [facility] Start: 11-02-2022 Non-smoker [facility] Start: 05-12-2024 Sex Female (finding) [facility] Start: 07-25-2024 Tobacco smoking stat us NHIS Ex-smoker (finding) [facility] NEGATED: Highlighted rowStart: NINF History of tobacco use Passive smoker [facility] Work Phone: NEGATED: Highlighted row Not [facility] Medical Equipment Procedure Code Equipment Code Equipment Original Text Equipment Identifier Dates Insertion, intramedullary kaleb, femur, using titanium trochanteric fixation nail syste Locking screw for IM nail [id number] FDA Start: 07-26-2024 Insertion, intramedullary kaleb, femur, using titanium trochanteric fixation nail syste Femur nail, sterile [id number] FDA Start: 07-26-2024 Insertion, intramedullary kaleb, femur, using titanium trochanteric fixation nail syste ([id number]) Spiral blade ()[id number] FDA Start: 07-26-2024 Insertion, intramedullary kaleb, femur, using titanium trochanteric fixation nail syste Locking screw for IM nail [id number] FDA Start: 07-26-2024 Insertion, intramedullary kaleb, femur, using titanium trochanteric fixation nail syste Locking screw for IM nail [id number] FDA Start: 07-26-2024 Insertion, intramedullary kaleb, femur, using titanium trochanteric fixation nail syste Locking screw for IM nail [id number] FDA Start: 07-26-2024 Goals Date Patient Goal Desired Activity /State Functional Status Date Assessment Result Facility 08-05-2024 Functional status Chair;Bedside Commode;Back to bed [facility] Work Phone: 07-28-2024 Functional status Chair [facility] Work Phone: 11-02-2022 Functional status Bedrest [facility] Work Phone: NEGATED: Highlighted row Functional performance Functional status health issues are not documented [facility] Work Phone: Mental Status Date Assessment Result Facility 08-05-2024 Cognitive function Touch/Shaking [facility] Work Phone: 08-04-2024 Cognitive function Appropriate;C ooperati ve;Talkative [facility] Work Phone: 08-02-2024 Cognitive function Voice/Name [facility] Work Phone: 07-28-2024 Cognitive function Voice/Name [facility] Work Phone: 11-06-2022 Cognitive function Appropriate;C ooperati ve [facility] Work Phone: 11-02-2022 Cognitive function Voice/Name [facility] Work Phone: 10-30-2022 Cognitive function Voice/Name [facility] Work Phone: NEGATED: Highlighted row Cognitive function [Interpretation] Cognitive status health issues are not documented [facility] Work Phone: Clinical Notes 06-09-2013 to 08-05-2024 Note Date & Type Note Facility 08-05-2024 Consult note [facility] 08-05-2024 Hospital Discharg e instructions Additional Instructions Date of Discharge: 08/05/24 [facility] Work Phone: 08-05-2024 Discharge summary Note Date/Time August 05, 2024 11:56am [facility] Medical Records Department [address] [place] [address] Discharge Summary 08/05/24 1149 MR#: [id number] Acct: [id number] Name: KATHERINE JUDGE Rep #:[id number] : [id number] From: Neymar Herrera PCP: Dr. Kam Ocampo Sr., DO Status:A DM IN Location: [place] [address] Providers Date of Admission: 08/02/24 Date of Discharge: 08/05/24 Primary Care Physician: Dr. Kam Ocampo Sr., DO Consultations 08/02/24 18:50 Consult: Gastroenterology Routine Consulting Provider: [facility] Reason for Consult: GI bleed EMERGENT Consult: No MD Notified: Yes Date Notified: 08/03/24 Time Notified: 06:09 Method of Notification: Text Reason For Visit: ANEMIA, GI BLEED Diagnosis Discharge Diagnosis (1) GI bleed: Status: Acute Code(s): K92.2 - Gastrointestinal hemorrhage, unspecified (2) Anemia: Status: Acute Code(s): D64.9 - Anemia, unspecified Plan Patient is an 89-year-old female who presented to [facility] ED on 08/02/2024 with altered mentation and low hemoglobin. 1. Acute on chronic anemia with concern for upper GI bleed, history of gastric pull-through procedure ? GI following. Hemoglobin 7.0 on admit. Had hemoglobin reading of 6.2 in chart but on redraw was 7.0. Hemoccult positive in the ED so there was concern for upper GI bleed. Notably hemoglobin dropped from 10.5 to 7.3 during recent hospitalization after right hip procedure noted below, so hemoglobin on admission was similar to previous. CT brain negative for bleed. CT hip with noconcern for postoperative hematoma. Given 2 units of packed red blood cells with hemoglobin improvement to 9.6. Discussed with GI and does given history ofgastric pull-through procedure, there is concern that she could have a slow upper GI bleed. Continue IV PPI twice daily for now. N.p.o. at midnight with plan for EGD tomorrow. 08/04: Posttransfusion H&H 11/32%. Platelet count 286K, INR 1.1. Patient is notconfused or delirious. Discussed with Dr. Kee and patient is well optimized for EGD. Stool for occult blood was positive. 08/05: EGD on 08/04/2024 Impression: - Normal esophagus. - Large hiatal hernia. - No specimens collected. On Protonix 40 mg daily. Hold Plavix. If she has bleeding she can follow in GIoffice 2. Acute metabolic encephalopathy ? Patient alert and oriented x 1 to person only on admit. Per family, is typically alert and oriented x 3 and mentally sharp. Unclear etiology for encephalopathy at this time. CT brain negative. Infectious workup negative to this point and patient noninfectious appearing. Continue to monitor and avoid sedating medications as able. 08/04: Acute metabolic encephalopathy resolved. 3. Recent right hip fracture s/p cephalomedullary nail placement with acute on chronic debility ? PT/OT/case management following. Recently hospitalized here from 07/25 to 07/29for fall with right hip fracture. S/p right femur cephalomedullary nail placement on 07/26. Patient discharged to [facility] and suspect she will need SNF placement again on this discharge. Appreciate therapy recommendations. 4. Chronic HFpEF, history of CAD with stenting, hypertension, hyperlipidemia, history of CVA, chronic hypoxic respiratory failure ? Hemodynamically stable on 2 L on admit. Was recently discharged on 2 L nasal cannula. Last echo in 2022 showed EF 70%, LA enlargement but no diastolic dysfunction, no valvular issues. Continue home statin, Lasix, doxazosin, Imdur,and Lopressor. Holding home Plavix as above. 5. Concern for urinary retention ? Patient with significant distended urinary bladder on CT on admit. However, has voided without issue since admission with postvoid residuals that are negligible. Continue doxazosin as above. 6. Anxiety/depression ? Stable. Continue home bupropion and mirtazapine. 7. GERD ? Continue home PPI. DVT prophylaxis: SCDs CODE STATUS: DNR CCA, DNI Expected disposition: Likely back to longterm, TBD Microbiology Past 72 Hours 08/02/24 14:55 Urine, Catheterized Urine Culture - Final Culture exhibits no growth. 08/02/24 15:45 Stool Stool Occult Blood (AYAH) - Final Occult Blood Positive Laboratory Results 08/04/24 05:28: WBC 7.8, RBC 3.27 L, Hgb 11.0 L, Hct 32.0 L, MCV 97.9, MCH 33.6 H, MCHC 34.4, RDW Std Deviation 50.4 H, RDW Coeff of Tamera 16.7 H, Plt Count 286, MPV 8.7, PT 14.1, INR 1.1, APTT 29.9, Sodium 143, Potassium 3.4, Chloride 102, Carbon Dioxide 29.5, Anion Gap 12, BUN 12, Creatinine 0.74, Estim Creat Clear Calc 34.91 L, Est GFR (MDRD) Non-Af 78, BUN/Creatinine Ratio 15.8, Glucose 98, Calcium 9.4, TSH 1.990 Medications at Discharge Home Medications Lactobacillus-Bifidobacterium 30 billion cell capsule,delayed release (Ultimate Harrison Probiotic) 1 cap PO DAILY 10/30/22 acetaminophen 325 mg capsule (Tylenol) 650 mg PO BID pain 10/30/22 azelastine 137 mcg (0.1 %) nasal spray 1 spray intranasal BID nasal spray 10/30/22 bupropion HCl 150 mg 24 hr tablet, extended release 150 mg PO DAILY 10/30/22 doxazosin 2 mg tablet (Cardura) 2 mg PO DAILY 10/30/22 fluticasone propionate 50 mcg/actuation nasal spray,suspension (24 Hour Allergy Relief) 1 spray intranasal DAILY 10/30/22 food supplemt, lactose-reduced (Ensure oral liquid) 8 ml PO DAILY 10/30/22 gabapentin 600 mg tablet 600 mg PO BID 10/30/22 inulin 2 gram chewable tablet (Fiber Gummies) 5 g PO DAILY 10/30/22 isosorbide mononitrate 30 mg tablet,extended release 24 hr 30 mg PO DAILY 10/30/22 metoprolol tartrate 25 mg tablet 25 mg PO BID 10/30/22 mirtazapine 30 mg tablet 30 mg PO QHS 10/30/22 montelukast 10 mg tablet 10 mg PO QHS 10/30/22 multivitamin (Daily Multi-Vitamin tablet) 1 tab PO DAILY 10/30/22 atorvastatin 40 mg tablet 40 mg PO QHS 20 days #30 tabs 11/02/22 dicyclomine 10 mg capsule 10 mg PO TID . 07/25/24 ipratropium 0.5 mg-albuterol 3 mg (2.5 mg base)/3 mL nebulization soln ml . 07/25/24 isosorbide mononitrate 30 mg tablet,extended release 24 hr 30 mg PO DAILY . 07/25/24 pantoprazole 40 mg tablet,delayed [...] (500 mg)) PO TIDCM #0 tabs 07/28/24 polyethylene glycol 3350 17 gram/dose oral powder (Miralax) 17 g PO BID 1 month #1,020 grams 07/28/24 sennosides 8.6 mg-docusate sodium 50 mg tablet (Stimulant Laxative Plus) 2 tab PO BID #0 tabs 07/28/24 budesonide 0.5 mg/2 mL suspension for nebulization 0.5 mg inhalation BID 08/02/24 cetirizine 5 mg tablet 5 mg PO DAILY 08/02/24 cholecalciferol (vitamin D3) 125 mcg (5,000 unit) tablet (Vitamin D3) 125 mcg PODAILY 08/02/24 clopidogrel 75 mg tablet 75 mg PO DAILY blood thinner 08/02/24 Held on 08/05/24. Instructions: Hold while taking Eliquis. ferrous sulfate 325 mg (65 mg iron) tablet 325 mg PO DAILY 08/02/24 ipratropium 0.5 mg-albuterol 3 mg (2.5 mg base)/3 mL nebulization soln 3 ml inhalation BID 08/02/24 furosemide 40 mg tablet 20 mg (1/2 x 40 mg) PO DAILY fluid retention 30 days #0 tabs 08/05/24 Physical Exam Narrative Seen and examined. Patient is elderly lady with dementia and forgetfulness. She cannot recall her age but she told the date of and current month correctly. Her has passed. She has chronic dementia Physical exam General: Alert, Oriented x3, Cooperative. Not confused or not in delirium HEENT: Atraumatic, PERRLA, EOMI, Normocephalic. Oral: No Gingival or Mucosal Lesions/ Ulcerations Neck: Supple, No JVD, Negative Carotid Bruits Chest wall/Lungs: Air entry diminished in bilateral lung bases. No crepitation/rhonchi Cardiovascular: Regular rate and rhythm, Normal S1,S2, No M/G/R Abdomen: Bowel Sounds Present, Soft, Non Tender, Non-Distended : No dysuria. No renal angle tenderness. No suprapubic tenderness. Extremities: No edema, Capillary Refill Less than 3 Seconds Skin: No rashes, No breakdown Musculoskeletal: No Tenderness to Palpation of Joints or Extremities Neurological: Cranial nerves II-XII grossly intact, DTR 2+/4. No acute focal neurological deficit. Psych/Mental Status: Dementia. Weight / BMI Weight Weight: 113 lb 15.664 oz Body Mass Index (BMI) 22.2 ABG / Lab / Microbiology Data 08/04/24 05:28 08/04/24 05:28 Microbiology: Microbiology 08/02/24 14:55 Urine, Catheterized Urine Culture - Final Culture exhibits no growth. 08/02/24 15:45 Stool Stool Occult Blood (AYAH) - Final Occult Blood Positive D/C Instructions DC O2, CPAP, BIPAP Needs [...] Simvastatin 80mg Discharge Plan Admission Admit Date/Time: 08/02/24 17:20 Attending Provider: Neymar Cunningham Primary Care Provider: Terrence Addison,Kam Consulting Providers: Janine Harrison; Hayden Diaz Discharge Orders/Prescriptions Prescriptions: Continued Ensure Liquid 8 ml PO DAILY bupropion HCl 150 mg tablet extended release 24 hr 150 mg PO DAILY doxazosin [Cardura] 2 mg tablet 2 mg PO DAILY Fiber Gummies 2 gram tablet,chewable 5 g PO DAILY fluticasone propionate [24 Hour Allergy Relief] 50 mcg/actuation spray,suspension 1 spray intranasal DAILY Rx Instructions: administer into each nostril isosorbide mononitrate 30 mg tablet extended release 24 hr 30 mg PO DAILY mirtazapine 30 mg tablet 30 mg PO QHS montelukast 10 mg tablet 10 mg PO QHS multivitamin [Daily Multi-Vitamin] Tablet 1 tab PO DAILY Ultimate Harrison Probiotic 30 billion cell capsule,delayed release(DR/EC) 1 cap PO DAILY azelastine 137 mcg (0.1 %) aerosol,spray 1 spray intranasal BID Rx Instructions: administer into each nostril gabapentin 600 mg tablet 600 mg PO BID metoprolol tartrate 25 mg tablet 25 mg PO BID acetaminophen [Tylenol] 325 mg capsule 650 mg PO BID atorvastatin 40 mg Tablet 40 mg PO QHS 20 Days Qty: 30 2RF isosorbide mononitrate 30 mg tablet extended release 24 hr 30 mg PO DAILY pantoprazole 40 mg tablet,delayed release (DR/EC) 40 mg PO DAILY potassium chloride 20 mEq tablet,ER particles/crystals 20 meq PO DAILY ipratropium-albuterol 0.5 mg-3 mg(2.5 mg base)/3 mL solution for nebulization Patient Comments: [NO ORIGINAL SIG] dicyclomine 10 mg capsule 10 mg PO TID acetaminophen 500 mg Tablet 1,000 mg PO [...] 500 mg PO TIDCM Qty: 0 0RF sennosides-docusate sodium [Stimulant Laxative Plus] 8.6-50 mg Tablet 2 tab PO BID Qty: 0 0RF polyethylene glycol 3350 [Miralax] 17 gram/dose powder 17 g PO BID 30 Days Qty: 1020 0RF Rx Instructions: Twice daily for 3 days and then once daily ascorbic acid (vitamin C) 500 mg tablet 500 mg PO BID Qty: 60 2RF cetirizine 5 mg tablet 5 mg PO DAILY ferrous sulfate 325 mg (65 mg iron) tablet 325 mg PO DAILY cholecalciferol (vitamin D3) [Vitamin D3] 125 mcg (5,000 unit) tablet 125 mcg PO DAILY budesonide 0.5 mg/2 mL suspension for nebulization 0.5 mg inhalation BID Patient Comments: [NO ORIGINAL SIG] ipratropium-albuterol 0.5 mg-3 mg(2.5 mg base)/3 mL solution for nebulization 3 ml inhalation BID Patient Comments: [NO ORIGINAL SIG] Changed furosemide 40 mg tablet 20 mg PO DAILY 30 Days Qty: 0 0RF Rx Instructions: Extra 20 mg in the morning if gaining weight more than 2 pounds in 3 to 4 days Held clopidogrel 75 mg tablet 75 mg PO DAILY Hold Instructions: Hold while taking Eliquis. Discontinued calcium carbonate [Calcium 500] 500 mg calcium (1,250 mg) tablet,chewable 500 mg PO DAILY pantoprazole 40 mg tablet,delayed release (DR/EC) 40 mg PO DAILY potassium chloride [K-Tab] 20 mEq tablet extended release 20 meq PO DAILY dicyclomine 10 mg capsule 10 mg PO Q6H atorvastatin 40 mg tablet 40 mg PO DAILY bupropion HCl 150 mg tablet extended release 24 hr 150 mg PO DAILY cetirizine 5 mg tablet 5 mg PO DAILY clopidogrel 75 mg tablet 75 mg PO DAILY doxazosin 2 mg tablet 2 mg PO DAILY mirtazapine 30 mg tablet 30 mg PO QHS montelukast 10 mg tablet 10 mg PO DAILY multivitamin with folic acid [Daily-Carmelo (with folic acid)] 400 mcg tablet 1 tab PO DAILY budesonide 0.5 mg/2 mL suspension for nebulization Patient Comments: [NO ORIGINAL SIG] gabapentin 100 mg capsule PO metoprolol tartrate 25 mg tablet 25 mg PO BID azelastine 137 mcg (0.1 %) spray,non-aerosol INTRANASAL Patient Comments: [NO ORIGINAL SIG] cholecalciferol (vitamin D3) 125 mcg (5,000 unit) capsule 125 mcg PO DAILY Qty: 0 0RF furosemide 40 mg Tablet 40 mg PO DAILY Qty: 0 0RF Rx Instructions: 40 mg daily for 5 days and then 20 mg daily ferrous sulfate [FeroSul] 325 mg (65 mg iron) tablet 325 mg PO DAILY 30 Days Qty: 30 2RF Fiber Select Gummies 2-100 gram-mcg tablet,chewable 1 tab PO DAILY ascorbic acid (vitamin C) 500 mg capsule 500 mg PO BID polyethylene glycol 3350 [Miralax] 17 gram/dose powder 17 g PO BID sennosides-docusate sodium [Senexon-S] 8.6-50 mg tablet 1 tab PO DAILY Referrals / Follow Up: Kam Ocampo Sr., DO [Primary Care Provider] - Within 2 Weeks Thanh Mclaughlin DO [Med Staff - Active Staff] - Within 2 Weeks Zahraa Zimmerman PA [Med Staff - Adv Practice Prof] - Within 1 Month Disposition Disposition (needs filled in before D/C Order can be placed): [facility] 08/05/24 1156 <Electronically signed by Neymar Cunningham MD> Cosigner Signature (if applicable): CC: Dr. Kam Ocampo Sr., DO; Dr. Neymar Cunningham MD~ Signed [facility] Work Phone: [phone] Discharge summary Author Neymar Cunningham [facility] Note Date/Time August 05, 2024 11:4 7am [facility] Medical Records Department [address] [place] [address] Transfer to [facility] MR#: [id number] Acct: [id number] Name: KATHERINE JUDGE Rep #:[id number] : [id number] From: Neymar Herrera PCP: Dr. Kam Ocampo Sr., Status:A DM IN Certification of patient admission REQUIRED AT TIME OF ADMISSION. I CERTIFY THAT POST-HOSPITAL F SERVICES ARE REQUIRED TO BE GIVEN ON AN IN-PATIENT BASIS BECAUSE OF THE ABOVE NAMED PATIENT'S NEED FOR USP CARE ON A CONTINUING BASIS FOR THE CONDITION(S) FOR WHICH HE/SHE WAS RECEIVING IN-PATIENT HOSPITAL SERVICES PRIOR TO HIS/HER TRANSFER TO THE [facility]. 08/05/24 1147<Electronically signed by Neymar Cunningham MD> Diet Diet Order/Speech Therapy: INPATIENT Hospital Diet / Speech Therapy Order(s) 08/04/24 18:41 Diet: Regular - General Diet Comments: soft diet Routine Orders/Code Status Suppository Type: Dulcolax 10mg Suppository Frequency: Daily PRN DC O2, CPAP, BIPAP needs Home O2 Discharge instructions: Yes Type of respiratory needs?: Oxygen Oxygen frequency: Continuous Continuous oxygen liters per minute: 2 Wound(s) right hip: Wound Type: Surgical Incision Therapies Extremity Affected:: Bilateral Lower Physical Therapy: Eval and Treat Occupational Therapy: Eval and Treat Speech Therapy: Eval and Treat Problem/Diagnosis (1) GI bleed: Status: Acute Code(s): K92.2 - Gastrointestinal hemorrhage, unspecified (2) Anemia: Status: Acute Code(s): D64.9 - Anemia, unspecified Plan Patient is an 89-year-old female who presented to [facility] ED on 08/02/2024 with altered mentation and low hemoglobin. 1. Acute on chronic anemia with concern for upper GI bleed, history of gastric pull-through procedure ? GI following. Hemoglobin 7.0 on admit. Had hemoglobin reading of 6.2 in chart but on redraw was 7.0. Hemoccult positive in the ED so there was concern for upper GI bleed. Notably hemoglobin dropped from 10.5 to 7.3 during recent hospitalization after right hip procedure noted below, so hemoglobin on admission was similar to previous. CT brain negative for bleed. CT hip with noconcern for postoperative hematoma. Given 2 units of packed red blood cells with hemoglobin improvement to 9.6. Discussed with GI and does given history ofgastric pull-through procedure, there is concern that she could have a slow upper GI bleed. Continue IV PPI twice daily for now. N.p.o. at midnight with plan for EGD tomorrow. 08/04: Posttransfusion H&H 11/32%. Platelet count 200 86K, INR 1.1. Patient is not confused or delirious. Discussed with Dr. Kee and patient is well optimized for EGD. Stool for occult blood was positive. 2. Acute metabolic encephalopathy ? Patient alert and oriented x 1 to person only on admit. Per family, is typically alert and oriented x 3 and mentally sharp. Unclear etiology for encephalopathy at this time. CT brain negative. Infectious workup negative to this point and patient noninfectious appearing. Continue to monitor and avoid sedating medications as able. 08/04: Acute metabolic encephalopathy resolved. 3. Recent right hip fracture s/p cephalomedullary nail placement with acute on chronic debility ? PT/OT/case management following. Recently hospitalized here from 07/25 to 07/29for fall with right hip fracture. S/p right femur cephalomedullary nail placement on 07/26. Patient discharged to [facility] and suspect she will need SNF placement again on this discharge. Appreciate therapy recommendations. 4. Chronic HFpEF, history of CAD with stenting, hypertension, hyperlipidemia, history of CVA, chronic hypoxic respiratory failure ? Hemodynamically stable on 2 L on admit. Was recently discharged on 2 L nasal cannula. Last echo in 2022 showed EF 70%, LA enlargement but no diastolic dysfunction, no valvular issues. Continue home statin, Lasix, doxazosin, Imdur,and Lopressor. Holding home Plavix as above. 5. Concern for urinary retention ? Patient with significant distended urinary bladder on CT on admit. However, has voided without issue since admission with postvoid residuals that are negligible. Continue doxazosin as above. 6. Anxiety/depression ? Stable. Continue home bupropion and mirtazapine. 7. GERD ? Continue home PPI. DVT prophylaxis: SCDs CODE STATUS: DNR CCA, DNI Expected disposition: Likely back to longterm, TBD Microbiology Past 72 Hours 08/02/24 14:55 Urine, Catheterized Urine Culture - Final Culture exhibits no growth. 08/02/24 15:45 Stool Stool Occult Blood (AYAH) - Final Occult Blood Positive Laboratory Results 08/04/24 05:28: WBC 7.8, RBC 3.27 L, Hgb 11.0 L, Hct 32.0 L, MCV 97.9, MCH 33.6 H, MCHC 34.4, RDW Std Deviation 50.4 H, RDW Coeff of Tamera 16.7 H, Plt Count 286, MPV 8.7, PT 14.1, INR 1.1, APTT 29.9, Sodium 143, Potassium 3.4, Chloride 102, Carbon Dioxide 29.5, Anion Gap 12, BUN 12, Creatinine 0.74, Estim Creat Clear Calc 34.91 L, Est GFR (MDRD) Non-Af 78, BUN/Creatinine Ratio 15.8, Glucose 98, Calcium 9.4, TSH 1.990 Allergies/Procedures Done in Hospital Allergies cephalexin Allergy (Verified 08/04/24 11:26) PT UNSURE OF REACTION clarithromycin Allergy (Verified 08/04/24 11:26) PT UNSURE OF REACTION clindamycin Allergy (Verified 08/04/24 11:26) PT UNSURE OF REACTION doxazosin Allergy (Verified 08/04/24 11:26) NEEDS FOLLOW-UP erythromycin base Allergy (Verified 08/04/24 11:26) PT UNSURE OF REACTION eszopiclone Allergy (Verified 08/04/24 11:26) PT UNSURE OF REACTION Fish Containing Products (seafood) Allergy (Verified 08/04/24 11:26) PT UNSURE OF REACTION fish derived Allergy (Verified 08/04/24 11:26) PT UNSURE OF REACTION lincomycin Allergy (Verified 08/04/24 11:26) PT UNSURE OF REACTION lorazepam Allergy (Verified 08/04/24 11:26) PT UNSURE OF REACTION mushroom (mushrooms) Allergy (Verified 08/04/24 11:26) PT UNSURE OF REACTION NSAIDS (Non-Steroidal Anti-Inflamma Allergy (Verified 08/04/24 11:26) PT UNSURE OF REACTION Penicillins Allergy (Verified 08/04/24 11:26) PT UNSURE OF REACTION rofecoxib Allergy (Verified 08/04/24 11:26) PT UNSURE OF REACTION salicylates Allergy (Verified 08/04/24 11:26) PT UNSURE OF REACTION temazepam Allergy (Verified 08/04/24 11:26) PT UNSURE OF REACTION Tetracyclines Allergy (Verified 08/04/24 11:26) PT UNSURE OF REACTION trazodone Allergy (Verified 08/04/24 11:26) PT UNSURE OF REACTION Type of Care/Length of Stay Estimated LOS: Convalescent Care Less Than 30 days Type of Care Needed: Skilled Rehab Potential: Good Prognosis: Good Additional Orders/Day of Discharge Day of Discharge: 08/05/24 Dietary and Speech Recommendations Dietitian Recommendations/Changes: Advance diet as tolerated to Regular as medically able to optimize oral intakes. Discharge Plan Admission Admit Date/Time: 08/02/24 17:20 Attending Provider: Neymar Cunningham Primary Care Provider: Terrence Addison,Kam Consulting Providers: Janine Harrison; Hayden Diaz Discharge Orders/Prescriptions Prescriptions: Continued Ensure Liquid 8 ml PO DAILY bupropion HCl 150 mg tablet extended release 24 hr 150 mg PO DAILY doxazosin [Cardura] 2 mg tablet 2 mg PO DAILY Fiber Gummies 2 gram tablet,chewable 5 g PO DAILY fluticasone propionate [24 Hour Allergy Relief] 50 mcg/actuation spray,suspension 1 spray intranasal DAILY Rx Instructions: administer into each nostril isosorbide mononitrate 30 mg tablet extended release 24 hr 30 mg PO DAILY mirtazapine 30 mg tablet 30 mg PO QHS montelukast 10 mg tablet 10 mg PO QHS multivitamin [Daily Multi-Vitamin] Tablet 1 tab PO DAILY Ultimate Harrison Probiotic 30 billion cell capsule,delayed release(DR/EC) 1 cap PO DAILY azelastine 137 mcg (0.1 %) aerosol,spray 1 spray intranasal BID Rx Instructions: administer into each nostril gabapentin 600 mg tablet 600 mg PO BID metoprolol tartrate 25 mg tablet 25 mg PO BID acetaminophen [Tylenol] 325 mg capsule 650 mg PO BID atorvastatin 40 mg Tablet 40 mg PO QHS 20 Days Qty: 30 2RF cetirizine 5 mg tablet 5 mg PO DAILY clopidogrel 75 mg tablet 75 mg PO DAILY isosorbide mononitrate 30 mg tablet extended release 24 hr 30 mg PO DAILY pantoprazole 40 mg tablet,delayed release (DR/EC) 40 mg PO DAILY potassium chloride 20 mEq tablet,ER particles/crystals 20 meq PO DAILY gabapentin 100 mg capsule PO ipratropium-albuterol 0.5 mg-3 mg(2.5 mg base)/3 mL solution for nebulization Patient Comments: [NO ORIGINAL SIG] dicyclomine 10 mg capsule 10 mg PO TID acetaminophen 500 mg Tablet 1,000 mg PO [...] 500 mg PO TIDCM Qty: 0 0RF sennosides-docusate sodium [Stimulant Laxative Plus] 8.6-50 mg Tablet 2 tab PO BID Qty: 0 0RF polyethylene glycol 3350 [Miralax] 17 gram/dose powder 17 g PO BID 30 Days Qty: 1020 0RF Rx Instructions: Twice daily for 3 days and then once daily ascorbic acid (vitamin C) 500 mg tablet 500 mg PO BID Qty: 60 2RF cetirizine 5 mg tablet 5 mg PO DAILY ferrous sulfate 325 mg (65 mg iron) tablet 325 mg PO DAILY cholecalciferol (vitamin D3) [Vitamin D3] 125 mcg (5,000 unit) tablet 125 mcg PO DAILY budesonide 0.5 mg/2 mL suspension for nebulization 0.5 mg inhalation BID Patient Comments: [NO ORIGINAL SIG] ipratropium-albuterol 0.5 mg-3 mg(2.5 mg base)/3 mL solution for nebulization 3 ml inhalation BID Patient Comments: [NO ORIGINAL SIG] Changed furosemide 40 mg tablet 20 mg PO DAILY 30 Days Qty: 0 0RF Rx Instructions: Extra 20 mg in the morning if gaining weight more than 2 pounds in 3 to 4 days Held clopidogrel 75 mg tablet 75 mg PO DAILY Hold Instructions: Hold while taking Eliquis. Discontinued calcium carbonate [Calcium 500] 500 mg calcium (1,250 mg) tablet,chewable 500 mg PO DAILY pantoprazole 40 mg tablet,delayed release (DR/EC) 40 mg PO DAILY potassium chloride [K-Tab] 20 mEq tablet extended release 20 meq PO DAILY dicyclomine 10 mg capsule 10 mg PO Q6H atorvastatin 40 mg tablet 40 mg PO DAILY bupropion HCl 150 mg tablet extended release 24 hr 150 mg PO DAILY doxazosin 2 mg tablet 2 mg PO DAILY mirtazapine 30 mg tablet 30 mg PO QHS montelukast 10 mg tablet 10 mg PO DAILY multivitamin with folic acid [Daily-Carmelo (with folic acid)] 400 mcg tablet 1 tab PO DAILY budesonide 0.5 mg/2 mL suspension for nebulization Patient Comments: [NO ORIGINAL SIG] metoprolol tartrate 25 mg tablet 25 mg PO BID azelastine 137 mcg (0.1 %) spray,non-aerosol INTRANASAL Patient Comments: [NO ORIGINAL SIG] cholecalciferol (vitamin D3) 125 mcg (5,000 unit) capsule 125 mcg PO DAILY Qty: 0 0RF furosemide 40 mg Tablet 40 mg PO DAILY Qty: 0 0RF Rx Instructions: 40 mg daily for 5 days and then 20 mg daily ferrous sulfate [FeroSul] 325 mg (65 mg iron) tablet 325 mg PO DAILY 30 Days Qty: 30 2RF Fiber Select Gummies 2-100 gram-mcg tablet,chewable 1 tab PO DAILY ascorbic acid (vitamin C) 500 mg capsule 500 mg PO BID polyethylene glycol 3350 [Miralax] 17 gram/dose powder 17 g PO BID sennosides-docusate sodium [Senexon-S] 8.6-50 mg tablet 1 tab PO DAILY Referrals / Follow Up: Kam Ocampo Sr., DO [Primary Care Provider] - Within 2 Weeks Disposition Disposition (needs filled in before D/C Order can be placed[facility] 08[facility]05/24 1147 <Electronically signed by Neymar Cunningham MD> Cosigner Signature (if applicable): CC: Dr. Hayden Diaz DO; Dr. Kam Ocampo Sr., DO; Dr. Janine Harrison MD~ [facility] Work Phone: [phone] Discharge summary [facility] Medical Records Department [address] [place] [id number] Discharge Summary 08/05/24 1149 MR#: [id number] Acct: [id number] Name: KATHERINE JUDGE Rep #:[id number] : [id number] From: Neymar Herrera PCP: Dr. Kam Ocampo Sr., DO Status:A DM IN [id number] Prov[facility] Date of Admission: 08/02/24 Date of Discharge: 08/05/24 Primary Care Physician: Dr. Kam Ocampo Sr., DO Consultations 08/02/24 18:50 Consult: Gastroenterology Routine Consulting Provider: [facility] Reason for Consult: GI bleed EMERGENT Consult: No MD Notified: Yes Date Notified: 08/03/24 Time Notified: 06:09 Method of Notification: Text Reason For Visit: ANEMIA, GI BLEED Diagnosis Discharge Diagnosis (1) GI bleed: Status: Acute Code(s): K92.2 - Gastrointestinal hemorrhage, unspecified (2) Anemia: Status: Acute Code(s): D64.9 - Anemia, unspecified Plan Patient is an 89-year-old female who presented to [facility] ED on 08/02/2024 with altered mentation and low hemoglobin. 1. Acute on chronic anemia with concern for upper GI bleed, history of gastric pull-through procedure ? GI following. Hemoglobin 7.0 on admit. Had hemoglobin reading of 6.2 in chart but on redraw was 7.0. Hemoccult positive in the ED so there was concern for upper GI bleed. Notably hemoglobin droppedfrom 10.5 to 7.3 during recent hospitalization after right hip procedure noted below, so hemoglobinon admission was similar to previous. CT brain negative for bleed. CT hip with noconcern for postoperative hematoma. Given 2 units of packed red blood cells with hemoglobin improvement to 9.6. Discussed with GI and does given history ofgastric pull- through procedure, there is concern that she couldhave a slow upper GI bleed. Continue IV PPI twice daily for now. N.p.o. at midnight with plan for EGD tomorrow. 08/04: Posttransfusion H&H 11/32%. Platelet count 286K, INR 1.1. Patient is notconfused or delirious. Discussed with Dr. Kee and patient is well optimized for EGD. Stool for occult blood was positive. 08/05: EGD on 08/04/2024 Impression: - Normal esophagus. - Large hiatal hernia. - No specimens collected. On Protonix 40 mg daily. Hold Plavix. If she has bleeding she can follow in GIoffice 2. Acute metabolic encephalopathy ? Patient alert and oriented x 1 to person only on admit. Per family, is typically alert and oriented x 3 and mentally sharp. Unclear etiology for encephalopathy at this time. CT brain negative. Infectious workup negative to this point and patient noninfectious appearing. Continue to monitor and avoid sedating medications as able. 08/04: Acute metabolic encephalopathy resolved. 3. Recent right hip fracture s/p cephalomedullary nail placement with acute on chronic debility ? PT/OT/case management following. Recently hospitalized here from 07/25 to 07/29for fall with right hip fracture. S/p right femur cephalomedullary nail placement on 07/26. Patient discharged to [facility] home and suspect she will need SNF placement again on this discharge. Appreciate therapy recommendations. 4. Chronic HFpEF, history of CAD with stenting, hypertension, hyperlipidemia, history of CVA, chronic hypoxic respiratory failure ? Hemodynamically stable on 2 L on admit. Was recently discharged on 2 L nasal cannula. Last echo in 2022 showed EF 70%, LA enlargement but no diastolic dysfunction, no valvular issues. Continue homestatin, Lasix, doxazosin, Imdur,and Lopressor. Holding home Plavix as above. 5. Concern for urinary retention ? Patient with significant distended urinary bladder on CT on admit. However, has voided without issue since admission with postvoid residuals that are negligible. Continue doxazosin as above. 6. Anxiety/depression ? Stable. Continue home bupropion and mirtazapine. 7. GERD ? Continue home PPI. DVT prophylaxis: SCDs CODE STATUS: DNR CCA, DNI Expected disposition: Likely back to longterm, TBD Microbiology Past 72 Hours 08/02/24 14:55 Urine, Catheterized Urine Culture - Final Culture exhibits no growth. 08/02/24 15:45 Stool Stool Occult Blood (AYAH) - Final Occult Blood Positive Laboratory Results 08/04/24 05:28: WBC 7.8, RBC 3.27 L, Hgb 11.0 L, Hct 32.0 L, MCV 97.9, MCH 33.6 H, MCHC 34.4, RDW Std Deviation 50.4 H, RDW Coeff of Tamera 16.7 H, Plt Count 286, MPV 8.7, PT 14.1, INR 1.1, APTT 29.9, Sodium 143, Potassium 3.4, Chloride 102, Carbon Dioxide 29.5, Anion Gap 12, BUN 12, Creatinine 0.74, Estim Creat Clear Calc 34.91 L, Est GFR (MDRD) Non-Af 78, BUN/Creatinine Ratio 15.8, Glucose 98, Calcium 9.4, TSH 1.990 Medications at Discharge Home Medications Lactobacillus-Bifidobacterium 30 billion cell capsule,delayed release (Ultimate Harrison Probiotic) 1 cap PO DAILY 10/30/22 acetaminophen 325 mg capsule (Tylenol) 650 mg PO BID pain 10/30/22 azelastine 137 mcg (0.1 %) nasal spray 1 spray intranasal BID nasal spray 10/30/22 bupropion HCl 150 mg 24 hr tablet, extended release 150 mg PO DAILY 10/30/22 doxazosin 2 mg tablet (Cardura) 2 mg PO DAILY 10/30/22 fluticasone propionate 50 mcg/actuation nasal spray,suspension (24 Hour Allergy Relief) 1 spray intranasal DAILY 09/21/23 food supplemt, lactose-reduced (Ensure oral liquid) 8 ml PO DAILY 10/30/22 gabapentin 600 mg tablet 600 mg PO BID 10/30/22 inulin 2 gram chewable tablet (Fiber Gummies) 5 g PO DAILY 10/30/22 isosorbide mononitrate 30 mg tablet,extended release 24 hr 30 mg PO DAILY 10/30/22 metoprolol tartrate 25 mg tablet 25 mg PO BID 10/30/22 mirtazapine 30 mg tablet 30 mg PO QHS 10/30/22 montelukast 10 mg tablet 10 mg PO QHS 10/30/22 multivitamin (Daily Multi-Vitamin tablet) 1 tab PO DAILY 10/30/22 atorvastatin 40 mg tablet 40 mg PO QHS 20 days #30 tabs 11/02/22 dicyclomine 10 mg capsule 10 mg PO TID . 07/25/24 ipratropium 0.5 mg-albuterol 3 mg (2.5 mg base)/3 mL nebulization soln ml . 07/25/24 isosorbide mononitrate 30 mg tablet,extended release 24 hr 30 mg PO DAILY . 07/25/24 pantoprazole 40 mg tablet,delayed [...] (500 mg)) PO TIDCM #0 tabs 07/28/24 polyethylene glycol 3350 17 gram/dose oral powder (Miralax) 17 g PO BID 1 month #1,020 grams 07/28/24 sennosides 8.6 mg-docusate sodium 50 mg tablet (Stimulant Laxative Plus) 2 tab PO BID #0 tabs 07/28/24 budesonide 0.5 mg/2 mL suspension for nebulization 0.5 mg inhalation BID 08/02/24 cetirizine 5 mg tablet 5 mg PO DAILY 08/02/24 cholecalciferol (vitamin D3) 125 mcg (5,000 unit) tablet (Vitamin D3) 125 mcg PODAILY 08/02/24 clopidogrel 75 mg tablet 75 mg PO DAILY blood thinner 08/02/24 Held on 08/05/24. Instructions: Hold while taking Eliquis. ferrous sulfate 325 mg (65 mg iron) tablet 325 mg PO DAILY 08/02/24 ipratropium 0.5 mg-albuterol 3 mg (2.5 mg base)/3 mL nebulization soln 3 ml inhalation BID 08/02/24 furosemide 40 mg tablet 20 mg (1/2 x 40 mg) PO DAILY fluid retention 30 days #0 tabs 08/05/24 Physical Exam Narrative Seen and examined. Patient is elderly lady with dementia and forgetfulness. She cannot recall her age but she told thedate of and current month correctly. Her has passed. She has chronic dementia Physical exam General: Alert, Oriented x3, Cooperative. Not confused or not in delirium HEENT: Atraumatic, PERRLA, EOMI, Normocephalic. Oral: No Gingival or Mucosal Lesions/ Ulcerations Neck: Supple, No JVD, Negative Carotid Bruits Chest wall/Lungs: Air entry diminished in bilateral lung bases. No crepitation/rhonchi Cardiovascular: Regular rate and rhythm, Normal S1,S2, No M/G/R Abdomen: Bowel Sounds Present, Soft, Non Tender, Non-Distended : No dysuria. No renal angle tenderness. No suprapubic tenderness. Extremities: No edema, Capillary Refill Less than 3 Seconds Skin: No rashes, No breakdown Musculoskeletal: No Tenderness to Palpation of Joints or Extremities Neurological: Cranial nerves II-XII grossly intact, DTR 2+/4. No acute focal neurological deficit. Psych/Mental Status: Dementia. Weight / BMI Weight Weight: 113 lb 15.664 oz Body Mass Index (BMI) 22.2 ABG / Lab / Microbiology Data 08/04/24 05:28 08/04/24 05:28 Microbiology: Microbiology 08/02/24 14:55 Urine, Catheterized Urine Culture - Final Culture exhibits no growth. 08/02/24 15:45 Stool Stool Occult Blood (AYAH) - Final Occult Blood Positive D/C Instructions DC O2, CPAP, BIPAP Needs [...] Simvastatin 80mg Discharge Plan Admission Admit Date/Time: 08/02/24 17:20 Attending Provider: Neymar Cunningham Primary Care Provider: Kam Ocampo Sr. Consulting Providers: Janine Harrison; Hayden Diaz Discharge Orders/Prescriptions Prescriptions: Continued Ensure Liquid 8 ml PO DAILY bupropion HCl 150 mg tablet extended release 24 hr 150 mg PO DAILY doxazosin [Cardura] 2 mg tablet 2 mg PO DAILY Fiber Gummies 2 gram tablet,chewable 5 g PO DAILY fluticasone propionate [24 Hour Allergy Relief] 50 mcg/actuation spray,suspension 1 spray intranasal DAILY Rx Instructions: administer into each nostril isosorbide mononitrate 30 mg tablet extended release 24 hr 30 mg PO DAILY mirtazapine 30 mg tablet 30 mg PO QHS montelukast 10 mg tablet 10 mg PO QHS multivitamin [Daily Multi-Vitamin] Tablet 1 tab PO DAILY Ultimate Harrison Probiotic 30 billion cell capsule,delayed release(DR/EC) 1 cap PO DAILY azelastine 137 mcg (0.1 %) aerosol,spray 1 spray intranasal BID Rx Instructions: administer into each nostril gabapentin 600 mg tablet 600 mg PO BID metoprolol tartrate 25 mg tablet 25 mg PO BID acetaminophen [Tylenol] 325 mg capsule 650 mg PO BID atorvastatin 40 mg Tablet 40 mg PO QHS 20 Days Qty: 30 2RF isosorbide mononitrate 30 mg tablet extended release 24 hr 30 mg PO DAILY pantoprazole 40 mg tablet,delayed release (DR/EC) 40 mg PO DAILY potassium chloride 20 mEq tablet,ER particles/crystals 20 meq PO DAILY ipratropium-albuterol 0.5 mg-3 mg(2.5 mg base)/3 mL solution for nebulization Patient Comments: [NO ORIGINAL SIG] dicyclomine 10 mg capsule 10 mg PO TID acetaminophen 500 mg Tablet 1,000 mg PO [...] 500 mg PO TIDCM Qty: 0 0RF sennosides-docusate sodium [Stimulant Laxative Plus] 8.6-50 mg Tablet 2 tab PO BID Qty: 0 0RF polyethylene glycol 3350 [Miralax] 17 gram/dose powder 17 g PO BID 30 Days Qty: 1020 0RF Rx Instructions: Twice daily for 3 days and then once daily ascorbic acid (vitamin C) 500 mg tablet 500 mg PO BID Qty: 60 2RF cetirizine 5 mg tablet 5 mg PO DAILY ferrous sulfate 325 mg (65 mg iron) tablet 325 mg PO DAILY cholecalciferol (vitamin D3) [Vitamin D3] 125 mcg (5,000 unit) tablet 125 mcg PO DAILY budesonide 0.5 mg/2 mL suspension for nebulization 0.5 mg inhalation BID Patient Comments: [NO ORIGINAL SIG] ipratropium-albuterol 0.5 mg-3 mg(2.5 mg base)/3 mL solution for nebulization 3 ml inhalation BID Patient Comments: [NO ORIGINAL SIG] Changed furosemide 40 mg tablet 20 mg PO DAILY 30 Days Qty: 0 0RF Rx Instructions: Extra 20 mg in the morning if gaining weight more than 2 pounds in 3 to 4 days Held clopidogrel 75 mg tablet 75 mg PO DAILY Hold Instructions: Hold while taking Eliquis. Discontinued calcium carbonate [Calcium 500] 500 mg calcium (1,250 mg) tablet,chewable 500 mg PO DAILY pantoprazole 40 mg tablet,delayed release (DR/EC) 40 mg PO DAILY potassium chloride [K-Tab] 20 mEq tablet extended release 20 meq PO DAILY dicyclomine 10 mg capsule 10 mg PO Q6H atorvastatin 40 mg tablet 40 mg PO DAILY bupropion HCl 150 mg tablet extended release 24 hr 150 mg PO DAILY cetirizine 5 mg tablet 5 mg PO DAILY clopidogrel 75 mg tablet 75 mg PO DAILY doxazosin 2 mg tablet 2 mg PO DAILY mirtazapine 30 mg tablet 30 mg PO QHS montelukast 10 mg tablet 10 mg PO DAILY multivitamin with folic acid [Daily-Carmelo (with folic acid)] 400 mcg tablet 1 tab PO DAILY budesonide 0.5 mg/2 mL suspension for nebulization Patient Comments: [NO ORIGINAL SIG] gabapentin 100 mg capsule PO metoprolol tartrate 25 mg tablet 25 mg PO BID azelastine 137 mcg (0.1 %) spray,non-aerosol INTRANASAL Patient Comments: [NO ORIGINAL SIG] cholecalciferol (vitamin D3) 125 mcg (5,000 unit) capsule 125 mcg PO DAILY Qty: 0 0RF furosemide 40 mg Tablet 40 mg PO DAILY Qty: 0 0RF Rx Instructions: 40 mg daily for 5 days and then 20 mg daily ferrous sulfate [FeroSul] 325 mg (65 mg iron) tablet 325 mg PO DAILY 30 Days Qty: 30 2RF Fiber Select Gummies 2-100 gram-mcg tablet,chewable 1 tab PO DAILY ascorbic acid (vitamin C) 500 mg capsule 500 mg PO BID polyethylene glycol 3350 [Miralax] 17 gram/dose powder 17 g PO BID sennosides-docusate sodium [Senexon-S] 8.6-50 mg tablet 1 tab PO DAILY Referrals / Follow Up: Kam Ocampo Sr., DO [Primary Care Provider] - Within 2 Weeks Thanh Mclaughlin DO [Med Staff - Active Staff] - Within 2 Weeks Zahraa Zimmerman PA [Med Staff - Adv Practice Prof] - Within 1 Month Disposition Disposition (needs filled in before D/C Order can be placed): [facility] 08/05/24 1156 Cosigner Signature (if applicable): CC: Dr. Kam Ocampo Sr., DO; Dr. Neymar Cunningham MD~ Signed [facility]06-27-2025 [facility]06-27-2025 Discharge summary [facility] Medical Records Department [address] [place] [id number] Transfer to Extended Care MR#: [id number] Acct: [id number] Name: KATHERINE JUDGE Rep #:[id number] : 1935 89 From: Neymar Herrera PCP: [...] PRIOR TO HIS/HER TRANSFER TO THE ECF. 08/05/24 1147 Diet Diet Order/Speech Therapy: INPATIENT Hospital Diet / Speech Therapy Order(s) 08/04/24 18:41 Diet: Regular - General Diet Comments: soft diet Routine Orders/Code Status Suppository Type: Dulcolax 10mg Suppository Frequency: Daily PRN DC O2, CPAP, BIPAP needs Home O2 Discharge instructions: Yes Type of respiratory needs?: Oxygen Oxygen frequency: ContinuousContinuous oxygen liters per minute: 2 Wound(s) right hip: Wound Type: Surgical Incision Therapies Extremity Affected:: Bilateral Lower Physical Therapy: Eval and Treat Occupational Therapy: Eval and Treat Speech Therapy: Eval and Treat Problem/Diagnosis (1) GI bleed: Status: Acute Code(s): K92.2 - Gastrointestinal hemorrhage, unspecified (2) Anemia: Status: Acute Code(s): D64.9 - Anemia, unspecified Plan Patient is an 89-year-old female who presented to [facility] ED on 08/02/2024 with altered mentation and low hemoglobin. 1. Acute on chronic anemia with concern for upper GI bleed, history of gastric pull-through procedure ? GI following. Hemoglobin 7.0 on admit. Had hemoglobin reading of 6.2 in chart but on redraw was 7.0. Hemoccult positive in the ED so there was concern for upper GI bleed. Notably hemoglobin droppedfrom 10.5 to 7.3 during recent hospitalization after right hip procedure noted below, so hemoglobinon admission was similar to previous. CT brain negative for bleed. CT hip with noconcern for postoperative hematoma. Given 2 units of packed red blood cells with hemoglobin improvement to 9.6. Discussed with GI and does given history ofgastric pull- through procedure, there is concern that she couldhave a slow upper GI bleed. Continue IV PPI twice daily for now. N.p.o. at midnight with plan for EGD tomorrow. 08/04: Posttransfusion H&H 11/32%. Platelet count 200 86K, INR 1.1. Patient is not confused or delirious. Discussed with Dr. Kee and patient is well optimized for EGD. Stool for occult blood was positive. 2. Acute metabolic encephalopathy ? Patient alert and oriented x 1 to person only on admit. Per family, is typically alert and oriented x 3 and mentally sharp. Unclear etiology for encephalopathy at this time. CT brain negative. Infectious workup negative to this point and patient noninfectious appearing. Continue to monitor and avoid sedating medications as able. 08/04: Acute metabolic encephalopathy resolved. 3. Recent right hip fracture s/p cephalomedullary nail placement with acute on chronic debility ? PT/OT/case management following. Recently hospitalized here from 07/25 to 07/29for fall with right hip fracture. S/p right femur cephalomedullary nail placement on 07/26. Patient discharged to [facility] and suspect she will need SNF placement again on this discharge. Appreciate therapy recommendations. 4. Chronic HFpEF, history of CAD with stenting, hypertension, hyperlipidemia, history of CVA, chronic hypoxic respiratory failure ? Hemodynamically stable on 2 L on admit. Was recently discharged on 2 L nasal cannula. Last echo in 2022 showed EF 70%, LA enlargement but no diastolic dysfunction, no valvular issues. Continue homestatin, Lasix, doxazosin, Imdur,and Lopressor. Holding home Plavix as above. 5. Concern for urinary retention ? Patient with significant distended urinary bladder on CT on admit. However, has voided without issue since admission with postvoid residuals that are negligible. Continue doxazosin as above. 6. Anxiety/depression ? Stable. Continue home bupropion and mirtazapine. 7. GERD ? Continue home PPI. DVT prophylaxis: SCDs CODE STATUS: DNR CCA, DNI Expected disposition: Likely back to longterm, TBD Microbiology Past 72 Hours 08/02/24 14:55 Urine, Catheterized Urine Culture - Final Culture exhibits no growth. 08/02/24 15:45 Stool Stool Occult Blood (AYAH) - Final Occult Blood Positive Laboratory Results 08/04/24 05:28: WBC 7.8, RBC 3.27 L, Hgb 11.0 L, Hct 32.0 L, MCV 97.9, MCH 33.6 H, MCHC 34.4, RDW Std Deviation 50.4 H, RDW Coeff of Tamera 16.7 H, Plt Count 286, MPV 8.7, PT 14.1, INR 1.1, APTT 29.9, Sodium 143, Potassium 3.4, Chloride 102, Carbon Dioxide 29.5, Anion Gap 12, BUN 12, Creatinine 0.74, Estim Creat Clear Calc 34.91 L, Est GFR (MDRD) Non-Af 78, BUN/Creatinine Ratio 15.8, Glucose 98, Calcium 9.4, TSH 1.990 Allergies/Procedures Done in Hospital Allergies cephalexin Allergy (Verified 08/04/24 11:26) PT UNSURE OF REACTION clarithromycin Allergy (Verified 08/04/24 11:26) PT UNSURE OF REACTION clindamycin Allergy (Verified 08/04/24 11:26) PT UNSURE OF REACTION doxazosin Allergy (Verified 08/04/24 11:26) NEEDS FOLLOW-UP erythromycin base Allergy (Verified 08/04/24 11:26) PT UNSURE OF REACTION eszopiclone Allergy (Verified 08/04/24 11:26) PT UNSURE OF REACTION Fish Containing Products (seafood) Allergy (Verified 08/04/24 11:26) PT UNSURE OF REACTION fish derived Allergy (Verified 08/04/24 11:26) PT UNSURE OF REACTION lincomycin Allergy (Verified 08/04/24 11:26) PT UNSURE OF REACTION lorazepam Allergy (Verified 08/04/24 11:26) PT UNSURE OF REACTION mushroom (mushrooms) Allergy (Verified 08/04/24 11:26) PT UNSURE OF REACTION NSAIDS (Non-Steroidal Anti-Inflamma Allergy (Verified 08/04/24 11:26) PT UNSURE OF REACTION Penicillins Allergy (Verified 08/04/24 11:26) PT UNSURE OF REACTION rofecoxib Allergy (Verified 08/04/24 11:26) PT UNSURE OF REACTION salicylates Allergy (Verified 08/04/24 11:26) PT UNSURE OF REACTION temazepam Allergy (Verified 08/04/24 11:26) PT UNSURE OF REACTION Tetracyclines Allergy (Verified 08/04/24 11:26) PT UNSURE OF REACTION trazodone Allergy (Verified 08/04/24 11:26) PT UNSURE OF REACTION Type of Care/Length of Stay Estimated LOS: Convalescent Care Less Than 30 days Type of Care Needed: Skilled Rehab Potential: Good Prognosis: Good Additional Orders/Day of Discharge Day of Discharge: 08/05/24 Dietary and Speech Recommendations Dietitian Recommendations/Changes: Advance diet as tolerated to Regular as medically able to optimize oral intakes. Discharge Plan Admission Admit Date/Time: 08/02/24 17:20 Attending Provider: Neymar Cunningham Primary Care Provider: Kam Ocampo Sr. Consulting Providers: Janine Harrison; Hayden Diaz Discharge Orders/Prescriptions Prescriptions: Continued Ensure Liquid 8 ml PO DAILY bupropion HCl 150 mg tablet extended release 24 hr 150 mg PO DAILY doxazosin [Cardura] 2 mg tablet 2 mg PO DAILY Fiber Gummies 2 gram tablet,chewable 5 g PO DAILY fluticasone propionate [24 Hour Allergy Relief] 50 mcg/actuation spray,suspension 1 spray intranasal DAILY Rx Instructions: administer into each nostril isosorbide mononitrate 30 mg tablet extended release 24 hr 30 mg PO DAILY mirtazapine 30 mg tablet 30 mg PO QHS montelukast 10 mg tablet 10 mg PO QHS multivitamin [Daily Multi-Vitamin] Tablet 1 tab PO DAILY Ultimate Harrison Probiotic 30 billion cell capsule,delayed release(DR/EC) 1 cap PO DAILY azelastine 137 mcg (0.1 %) aerosol,spray 1 spray intranasal BID Rx Instructions: administer into each nostril gabapentin 600 mg tablet 600 mg PO BID metoprolol tartrate 25 mg tablet 25 mg PO BID acetaminophen [Tylenol] 325 mg capsule 650 mg PO BID atorvastatin 40 mg Tablet 40 mg PO QHS 20 Days Qty: 30 2RF cetirizine 5 mg tablet 5 mg PO DAILY clopidogrel 75 mg tablet 75 mg PO DAILY isosorbide mononitrate 30 mg tablet extended release 24 hr 30 mg PO DAILY pantoprazole 40 mg tablet,delayed release (DR/EC) 40 mg PO DAILY potassium chloride 20 mEq tablet,ER particles/crystals 20 meq PO DAILY gabapentin 100 mg capsule PO ipratropium-albuterol 0.5 mg-3 mg(2.5 mg base)/3 mL solution for nebulization Patient Comments: [NO ORIGINAL SIG] dicyclomine 10 mg capsule 10 mg PO TID acetaminophen 500 mg Tablet 1,000 mg PO [...] 500 mg PO TIDCM Qty: 0 0RF sennosides-docusate sodium [Stimulant Laxative Plus] 8.6-50 mg Tablet 2 tab PO BID Qty: 0 0RF polyethylene glycol 3350 [Miralax] 17 gram/dose powder 17 g PO BID 30 Days Qty: 1020 0RF Rx Instructions: Twice daily for 3 days and then once daily ascorbic acid (vitamin C) 500 mg tablet 500 mg PO BID Qty: 60 2RF cetirizine 5 mg tablet 5 mg PO DAILY ferrous sulfate 325 mg (65 mg iron) tablet 325 mg PO DAILY cholecalciferol (vitamin D3) [Vitamin D3] 125 mcg (5,000 unit) tablet 125 mcg PO DAILY budesonide 0.5 mg/2 mL suspension for nebulization 0.5 mg inhalation BID Patient Comments: [NO ORIGINAL SIG] ipratropium-albuterol 0.5 mg-3 mg(2.5 mg base)/3 mL solution for nebulization 3 ml inhalation BID Patient Comments: [NO ORIGINAL SIG] Changed furosemide 40 mg tablet 20 mg PO DAILY 30 Days Qty: 0 0RF Rx Instructions: Extra 20 mg in the morning if gaining weight more than 2 pounds in 3 to 4 days Held clopidogrel 75 mg tablet 75 mg PO DAILY Hold Instructions: Hold while taking Eliquis. Discontinued calcium carbonate [Calcium 500] 500 mg calcium (1,250 mg) tablet,chewable 500 mg PO DAILY pantoprazole 40 mg tablet,delayed release (DR/EC) 40 mg PO DAILY potassium chloride [K-Tab] 20 mEq tablet extended release 20 meq PO DAILY dicyclomine 10 mg capsule 10 mg PO Q6H atorvastatin 40 mg tablet 40 mg PO DAILY bupropion HCl 150 mg tablet extended release 24 hr 150 mg PO DAILY doxazosin 2 mg tablet 2 mg PO DAILY mirtazapine 30 mg tablet 30 mg PO QHS montelukast 10 mg tablet 10 mg PO DAILY multivitamin with folic acid [Daily-Carmelo (with folic acid)] 400 mcg tablet 1 tab PO DAILY budesonide 0.5 mg/2 mL suspension for nebulization Patient Comments: [NO ORIGINAL SIG] metoprolol tartrate 25 mg tablet 25 mg PO BID azelastine 137 mcg (0.1 %) spray,non-aerosol INTRANASAL Patient Comments: [NO ORIGINAL SIG] cholecalciferol (vitamin D3) 125 mcg (5,000 unit) capsule 125 mcg PO DAILY Qty: 0 0RF furosemide 40 mg Tablet 40 mg PO DAILY Qty: 0 0RF Rx Instructions: 40 mg daily for 5 days and then 20 mg daily ferrous sulfate [FeroSul] 325 mg (65 mg iron) tablet 325 mg PO DAILY 30 Days Qty: 30 2RF Fiber Select Gummies 2-100 gram-mcg tablet,chewable 1 tab PO DAILY ascorbic acid (vitamin C) 500 mg capsule 500 mg PO BID polyethylene glycol 3350 [Miralax] 17 gram/dose powder 17 g PO BID sennosides-docusate sodium [Senexon-S] 8.6-50 mg tablet 1 tab PO DAILY Referrals / Follow Up: Kam Ocampo Sr., DO [Primary Care Provider] - Within 2 Weeks Disposition Disposition (needs filled in before D/C Order can be placed): [facility]24 1147 Cosigner Signature (if applicable): CC: Dr. Hayden Diaz, DO; Dr. Kam Ocampo Sr., DO; Dr. Janine Harrison MD~ [facility]06-27-2025 Progress note Author Yue Velásquez [facility] Note Date/Time August 04, 2024 10:3 1pm [facility] Medical Records Department [address] [place] [address] Progress Note - Hospitalist 08/04/240 MR#: [id number] Acct: [id number] Name: KATHERINE JUDGE Rep #:[id number] : 1935 89 From: Yue Velásquez MD PCP: Dr. Kam Ocampo Sr., DO Status:A DM IN Location: ME3 [id number] Hospitalist Note Patient pulled out her IV access. Currently on regular diet. RN notes planned D/C likely in AM. Will change IV PPI to oral regimen. 08/04/242230 <Electronically signed by Yue Velásquez MD> Cosigner Signature (if applicable): CC: ~ Signed [facility] Work Phone: 1(206) 754-111406-26-2025 Progress note [facility] Medical Records Department [address] [facility] [place] [address] Progress Note - Hospitalist 08/04/242229 MR#: [id number] Acct: [id number] Name: KATHERINE JUDGE Wilber Rep #:[id number] : 1935 89 From: Yue Velásquez MD PCP: Dr. Kam Ocampo Sr., DO Status:A DM IN Location: [place] [address] Hospitalist Note Patient pulled out her IV access. Currently on regular diet. RN notes planned D/C likely in AM. Will change IV PPI to oral regimen. 08/04/242230 Cosigner Signature (if applicable): CC: ~ Signed [facility]06-26-2025 Consult note [facility] Note Date/Time August 05, 2024 4:[address] [facility] Medical Records Department [address] [facility] [place] [address] Anesthesia Postop Eval II 08/04/24 180 MR#: [id number] Acct: [id number] Name: KATHERINE JUDGE Wilber Rep #:[id number] : 1935 89 From: Nilsa Alexandra CRNA PCP: Dr. Kam Ocampo Sr., DO Status:A DM IN Y Race: C Location: [place] [address] Anesthesia Postop Eval I Sum Postop Eval Completion status Anesthesia document: Postop Eval 1 completed: Yes Anesthesia Postop Eval I Summary Anesthesia Postop Eval I Summary: Anesthesia Postop Eval I: Assessment Summary Airway patent Yes 08/04/24 16:41 DIALYSIS NURSE.MDOT Spontaneous unlabored Yes 08/04/24 16:41 DIALYSIS NURSE.MDOT respirations Mental status Awake,Calm 08/04/24 16:41 DIALYSIS NURSE.MDOT nausea No 08/04/24 16:41 DIALYSIS NURSE.MDOT Vomiting No 08/04/24 16:41 DIALYSIS NURSE.MDOT Anesthesia Postop Eval I: Fluid Summary Crystalloid volume administer 100 08/04/24 16:41 DIALYSIS NURSE.MDOT (ml) Colloids volume administered ( ml) Blood Product volume administered (ml) Total IV fluid infused 100 08/04/24 16:41 DIALYSIS NURSE.MDMICHA Anesthesia Postop Eval I: Summary Notes Anesthesia Complication No 08/04/24 16:41 DIALYSIS NURSE.MDOT Anesthesia Complication Comment: Post-operative progress note Anesthesia: Postop Eval II Evaluation Mental status: Awake Pain Level: 0 nausea: No Vomiting: No 08/04/241801 <Electronically signed by Nilsa gaona CRNA> Date _ Nilsa Alexandra CRNA Cosigner Signature: Date CC: ~ Signed [facility] Work Phone: 1(784) 431-856506-26-2025 Consult note Author [facility] Note Date/Time August 04, 2024 4:[address] [facility] Medical Records Department [address] [place] [address] Anesthesia Postop Eval I 08/04/24 1641 MR#: [id number] Acct: [id number] Name: KATHERINE JUDGE Rep #:[id number] : 1935 89 From: Jose NELSON PCP: Dr. Kam Ocampo Sr., DO Status:A DM IN Y Race: C Location: [address] Anesthesia: Postop Eval I Current Vital Signs Temperature: 97 F Pulse Rate: 72 Blood Pressure: 94/44 Respiratory Rate: 14 Pulse Ox: 94 Oxygen Delivery Method: Nasal Cannula Oxygen Flow Rate (L/min): 2 Assessment Airway patent: Yes Spontaneous unlabored respirations: Yes Mental status: Awake and Calm nausea: No Vomiting: No Anesthesia Complication: No Fluid Hydration Crystalloid volume administer (ml): 100 Total IV fluid infused: 100 Progress Note Anesthesia document: Postop Eval 1 completed: Yes 08/04/24 1641 <Electronically signed by Jose Krueger CRNA> Date _ Jose Krueger CRNA Cosigner Signature: Date CC: ~ Signed [facility] Work Phone: 1(656) 682-770006-26-2025 Progress note Author Neymar Cunningham [facility] Note Date/Time August 04, 2024 4:41 pm [facility] Medical Records Department [address] [facility] [place] [address] Progress Note - Hospitalist 08/04/24 1636 MR#: [id number] Acct: [id number] Name: KATHERINE JUDGE Rep #:[id number] : 1935 89 From: Neymar Herrera PCP: Dr. Kam Ocampo Sr., DO Status:A DM IN Location: [place] [address] Reason for Visit Reason for Visit: Diagnoses Anemia, unspecified (08/02/24) Gastrointestinal hemorrhage, unspecified (08/02/24) Altered mental status, unspecified (08/02/24) Objective Data Objective Data Vital Signs: Vital Signs Temp Pulse Resp BP Pulse Ox O2 Del Method O2 Flow Rate 99 F 85 16 103/49 L 92 Room Air 2 08/04/24 16:01 08/04/24 16:01 08/04/24 16:01 08/04/24 16:01 08/04/24 16:01 08/04/24 15:14 08/04/24 16:01 Oxygen Flow Rate (L/min) 2 Oxygen Delivery Method Room Air Weight: 113 lb 15.664 oz Body Mass Index (BMI) 22.2 Intake & Output: Intake and Output for Last 24 Hours 08/02/24 08/03/24 08/04/24 23:59 23:59 23:59 Intake Total 100 / 100 700 / 700 1100 / 1100 Output Total 550 / 550 700 / 900 400 / 400 Balance -450 / -450 0 / -200 700 / 700 Lab / Micro Data 08/04/24 05:28 08/04/24 05:28 Labs: Laboratory Results - last 24 hr 08/04/24 05:28: WBC 7.8, RBC 3.27 L, Hgb 11.0 L, Hct 32.0 L, MCV 97.9, MCH 33.6 H, MCHC 34.4, RDW Std Deviation 50.4 H, RDW Coeff of Tamera 16.7 H, Plt Count 286, MPV 8.7, PT 14.1, INR 1.1, APTT 29.9, Sodium 143, Potassium 3.4, Chloride 102, Carbon Dioxide 29.5, Anion Gap 12, BUN 12, Creatinine 0.74, Estim Creat Clear Calc 34.91 L, Est GFR (MDRD) Non-Af 78, BUN/Creatinine Ratio 15.8, Glucose 98, Calcium 9.4, TSH 1.990 Micro: Microbiology 08/02/24 14:55 Urine, Catheterized Urine Culture - Final Culture exhibits no growth. 08/02/24 15:45 Stool Stool Occult Blood (AYAH) - Final Occult Blood Positive Radiography Diagnostic Testing: Radiology Impression Abdomen/Pelvis CT 08/02/24 14:09 IMPRESSION: 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 Distended urinary bladder. Minimal intrahepatic biliary ductal dilatation. Reading Location: [id number] Brain CT 08/03/24 11:10 IMPRESSION: NO ACUTE INTRACRANIAL HEMORRHAGE Chronic changes. Reading Location: [facility] Pelvis CT 08/03/24 11:10 IMPRESSION: Status post right intertrochanteric fracture reduction with compression screw and kaleb fixation device. Postoperative soft tissue changes. No evidence of localized hematoma. Reading Location: [facility] Physical Exam Narrative Seen and examined. Patient is elderly lady with dementia and forgetfulness. She cannot recall her age but she told the date of and current month correctly. Her has passed. Physical exam General: Alert, Oriented x3, Cooperative. Not confused or not in delirium HEENT: Atraumatic, PERRLA, EOMI, Normocephalic. Oral: No Gingival or Mucosal Lesions/ Ulcerations Neck: Supple, No JVD, Negative Carotid Bruits Chest wall/Lungs: Air entry diminished in bilateral lung bases. No crepitation/rhonchi Cardiovascular: Regular rate and rhythm, Normal S1,S2, No M/G/R Abdomen: Bowel Sounds Present, Soft, Non Tender, Non-Distended : No dysuria. No renal angle tenderness. No suprapubic tenderness. Extremities: No edema, Capillary Refill Less than 3 Seconds Skin: No rashes, No breakdown Musculoskeletal: No Tenderness to Palpation of Joints or Extremities Neurological: Cranial nerves II-XII grossly intact, DTR 2+/4. No acute focal neurological deficit. Psych/Mental Status: Dementia. Assessment & Plan Assessment/Plan (1) GI bleed: (2) Anemia: PLAN: Plan Patient is an 89-year-old female who presented to [facility] ED on 08/02/2024 with altered mentation and low hemoglobin. 1. Acute on chronic anemia with concern for upper GI bleed, history of gastric pull-through procedure ? GI following. Hemoglobin 7.0 on admit. Had hemoglobin reading of 6.2 in chart but on redraw was 7.0. Hemoccult positive in the ED so there was concern for upper GI bleed. Notably hemoglobin dropped from 10.5 to 7.3 during recent hospitalization after right hip procedure noted below, so hemoglobin on admission was similar to previous. CT brain negative for bleed. CT hip with noconcern for postoperative hematoma. Given 2 units of packed red blood cells with hemoglobin improvement to 9.6. Discussed with GI and does given history ofgastric pull-through procedure, there is concern that she could have a slow upper GI bleed. Continue IV PPI twice daily for now. N.p.o. at midnight with plan for EGD tomorrow. 08/04: Posttransfusion H&H 11/32%. Platelet count 200 86K, INR 1.1. Patient is not confused or delirious. Discussed with Dr. Kee and patient is well optimized for EGD. Stool for occult blood was positive. 2. Acute metabolic encephalopathy ? Patient alert and oriented x 1 to person only on admit. Per family, is typically alert and oriented x 3 and mentally sharp. Unclear etiology for encephalopathy at this time. CT brain negative. Infectious workup negative to this point and patient noninfectious appearing. Continue to monitor and avoid sedating medications as able. 08/04: Acute metabolic encephalopathy resolved. 3. Recent right hip fracture s/p cephalomedullary nail placement with acute on chronic debility ? PT/OT/case management following. Recently hospitalized here from 07/25 to 07/29for fall with right hip fracture. S/p right femur cephalomedullary nail placement on 07/26. Patient discharged to [facility] and suspect she will need SNF placement again on this discharge. Appreciate therapy recommendations. 4. Chronic HFpEF, history of CAD with stenting, hypertension, hyperlipidemia, history of CVA, chronic hypoxic respiratory failure ? Hemodynamically stable on 2 L on admit. Was recently discharged on 2 L nasal cannula. Last echo in 2022 showed EF 70%, LA enlargement but no diastolic dysfunction, no valvular issues. Continue home statin, Lasix, doxazosin, Imdur,and Lopressor. Holding home Plavix as above. 5. Concern for urinary retention ? Patient with significant distended urinary bladder on CT on admit. However, has voided without issue since admission with postvoid residuals that are negligible. Continue doxazosin as above. 6. Anxiety/depression ? Stable. Continue home bupropion and mirtazapine. 7. GERD ? Continue home PPI. DVT prophylaxis: SCDs CODE STATUS: DNR CCA, DNI Expected disposition: Likely back to longterm, TBD Microbiology Past 72 Hours 08/02/24 14:55 Urine, Catheterized Urine Culture - Final Culture exhibits no growth. 08/02/24 15:45 Stool Stool Occult Blood (AYAH) - Final Occult Blood Positive Laboratory Results 08/04/24 05:28: WBC 7.8, RBC 3.27 L, Hgb 11.0 L, Hct 32.0 L, MCV 97.9, MCH 33.6 H, MCHC 34.4, RDW Std Deviation 50.4 H, RDW Coeff of Tamera 16.7 H, Plt Count 286, MPV 8.7, PT 14.1, INR 1.1, APTT 29.9, Sodium 143, Potassium 3.4, Chloride 102, Carbon Dioxide 29.5, Anion Gap 12, BUN 12, Creatinine 0.74, Estim Creat Clear Calc 34.91 L, Est GFR (MDRD) Non-Af 78, BUN/Creatinine Ratio 15.8, Glucose 98, Calcium 9.4, TSH 1.990 Charges/Coding Visit Charges Inpatient E&M: 01465 Subs Hosp L2 08/04/24 1641 <Electronically signed by Neymar Cunningham MD> Cosigner Signature (if applicable): CC: ~ Signed [facility] Work Phone: 1(142) 461-783606-26-2025 Progress note Author Nomi Kee [facility] Note Date/Time August 04, 2024 4:13 pm [facility] Medical Records Department [address] [place] [address] Progress Note 08/04/24 1611 MR#: [id number] Acct: [id number] Name: KATHERINE JUDGE Wilber Rep #:[id number] : 1935 89 From: Nomi Kee DO PCP: Dr. Kam Ocampo Sr., DO Status:A DM IN Location: [address] Progress Note Patient has been n.p.o. for an upper endoscopy today. All questions concerns answered by the patient's son. Physical Exam Const alert, oriented x3, no apparent distress and healthy appearing General Appearance: cooperative GI normal to inspection, nondistended, normoactive bowel sounds, soft to palpation,non-tender and non-distended Percussion: normal to percussion Rectal Exam: deferred Assessment & Plan Assessment/Plan (1) Anemia: (2) GI bleed: PLAN: PLAN: 89-year-old with past medical history of coronary artery disease status post CABG on Plavix, iron deficiency anemia on iron, acute CVA status post tPA treatment arrives with decrease in hemoglobin. Apparently she had sometype of surgery on her upper GI tract requiring a gastric pull-through. Her hemoglobin went down to 4 grams and came back up after transfusion. This is thereason why she came in the hospital initially due to decrease in hemoglobin. I think she should at least have an upper endoscopy to evaluate upper GI tract forsigns of acute on chronic GI blood loss in the setting of iron deficiency anemiain a patient on iron therapy. Currently at this time she has been worked up foraltered mental status by primary team. When patient is medically stable we can pursue endoscopy. PLAN: Plan 08/04/2024-patient will undergo an upper endoscopy. The patient's power of employee benefits attorney her son was explained alternatives, risk and benefits include not withstanding bleeding, infection, sepsis, perforation, need for surgery . She will have an ASA 3. Visit Charges Inpatient E&M: 03751 Subs Hosp L3 08/04/24 1613 <Electronically signed by Nomi Kee DO> Nomi Kee DO Cosigner Signature (if applicable): CC: ~ Signed [facility] Work Phone: [phone] 450-607506-26-2025 Consult note Author Jose Krueger [facility] Note Date/Time August 04, 2024 4:[address] [facility] Medical Records Department [address] [place] [address] Pre-Anesthesia Evaluation 08/04/24 1553 MR#: [id number] Acct: [id number] Name: KATHERINE JUDGE Rep #:[id number] : 1935 89 From: Jose NELSON PCP: Dr. Kam Ocampo SrLeigh, DO Status:A DM IN Y Race: C Location: [place] [address] ASA Classification* ASA Classification ASA Classification: 3 and E Assessment & Plan Anesthesia* Anesthesia Assessment Anesthesia Assessment: Discussed sedation and/or anesthesia options, risks, benefits, and alternatives with patient/parents/legal guardian/POA. Questions invited. The patient/parents/legal guardian/POA seems to understand and agrees to proceedwith anesthesia plan. Reviewed the physical assessment, medical history, allergy history and patient home medications list prior to surgery/procedure/anesthetic and documented any changes. Performed airway and anesthesia risk assessments. Anesthesia Type Anesthesia Type: MAC History Source History Obtained from:: Patient, Chart, Parent/ Guardian and Poor Historian (pt answering most questions appropriately) Anesthesia Focused Assessment* Temperature: 99 F Pulse Rate: 85 Blood Pressure: 103/49 Respiratory Rate: 16 Pulse Ox: 92 Oxygen Flow Rate (L/min): 2 Airway Assessment Mouth opens: >3 cm Mallampati Score: IV Teeth Condition: Missing (multiple on bottom, no loose teeth) Neck Range of motion (ROM): Full ROM Labs Anesthesia Preop lab: CBC WBC 7.8 K/mm3 (4.4-11.0) 08/04/24 05:08/04/24 RBC 3.27 M/mm3 (4.2-5.4) L 08/04/24 05:08/04/24 Hgb 11.0 g/dL (12.0-15.0) L 08/04/24 05: 5 Hct 32.0 % (37-47) L 08/04/24 05:08/04/24 Plt Count 286 K/mm3 (150-450) 08/04/24 05:08/04/24 CHEMISTRY Potassium 3.4 mmol/L (3.3-5.1) 08/04/24 05:08/04/24 Sodium 143 mmol/L (133-145) 08/04/24 05:08/04/24 Phosphorus 3.6 mg/dL (2.5-4.9) 09/02/23 05:02 09/02/23 BUN 12 mg/dL (4-19) 08/04/24 05:08/04/24 Creatinine 0.74 mg/dL (0.70-1.20) 08/04/24 05:08/04/24 Glucose 98 mg/dL (70-99) 08/04/24 05:08/04/24 POC Glucose 106 mg/dL (74-106) 08/03/24 10:31 08/03/24 TSH 1.990 uIU/mL (0.300-4.200) 08/04/24 05:07/11 COAG PT 14.1 SECONDS (11.7-14.9) 08/04/24 05: Pre-Assessment Diagnosis/Proposed Procedure Planned Operative Procedure(s): EGD, possible cautery Anesthesia History Anesthesia History - crime scene photographer: Anesthesia History - crime scene photographer Hx Hospitalization Any Problems With Anesthesia No 08/04/24 15:15 Cholinesterase deficiency No 08/04/24 15:15 You/Your Family Experience No 08/04/24 15:15 fever (hyperthermia) with Relationship Recent Exposure to Contagious No 08/04/24 15:15 Disease Does patient have nerve No 08/04/24 15:15 stimulator Patient instructed to have No 08/04/24 15:15 device shut off --Does patient have Pacemaker No 08/04/24 15:25 or ICD? When Was Last Pacemaker Check QUESTION #4 FULL TEXT: You/Your Family Experience fever (hyperthermia) with Anesthesia Last Oral Intake Last Oral intake: Last Oral Intake NPO since 00:00 08/04/24 15:25 Meds taken in AM with sips of Yes 08/04/24 15:25 water? Meds patient instructed to see 08/04/24 15:25 take am of surgery PONV PONV - crime scene photographer: PONV - crime scene photographer Female HX of Motion Sickness HX of N/V After Surgery Non-Smoker Duration of Surgery greater than 60 minutes Number of Risk Factors PONV Score Height & Weight Height & Weight: Anesthesia: Height & Weight Height 5 ft 08/04/24 15:25 Weight: 51.7 kg 08/04/24 15:25 Body Mass Index (BMI) 22.2 08/04/24 15:25 Respiratory Assessment Respiratory Assessment - crime scene photographer: Respiratory Tract Infection Hx - crime scene photographer Hx Respiratory Tract Infection No 08/04/24 15:15 STOP Sleep Apnea STOP Sleep Apnea - crime scene photographer: STOP Sleep Apnea - crime scene photographer Hx Hypertension Yes 08/03/24 12:16 Hx Sleep Apnea No 10/30/22 22:55 CPAP BIPAP Do you snore loudly (louder than talking or can be heard Do you often feel tired/ fatigued/ sleepy during daytime? Has anyone observed you stop breathing during sleep? STOP Results QUESTION #5 FULL TEXT : Do you snore loudly (louder than talking or can be heard through closed doors)? Tobacco Use History Tobacco Use History - crime scene photographer: Tobacco Use History - crime scene photographer Tobacco Use Non-smoker 11/02/22 12:18 Smoking Status Never smoker 08/02/24 13:06 Hx Tobacco Use No 10/30/22 22:55 Years Smoking Packs Smoked per Day Smoking Cessation Date was within the last 15 years Hx Smoking Cessation Date Hx Smoking Cessation Counseling Hematologic Medial History Hematologic Hx - crime scene photographer: Hematologic 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 Hx of Blood Transfusion Hx of Transfusion in last 3 Months Date of Last Transfusion (if within last 3 months) Ever experience any problems with transfusion(s)? Specify any problems Hx of Preganancy in last 3 Months Nurse Filling Out Transfusion & Questions: Date: Time: Patient unable to answer at this time (ie. confused, unrespo /Reproduction History /Reproductive History - crime scene photographer: /Reproductive Hx- crime scene photographer Hx Now No 08/04/24 15:15 Gestational Age (in weeks): EDC: Hx Hx Para Hx Section SAB No 08/04/24 15:15 Active Medications Active Medications: Current Medications Generic Name Dose Route Start Last Admin Trade Name Freq PRN Reason Stop Dose Admin Acetaminophen 650 mg 08/02/24 18:50 08/03/24 02:00 Acetaminophen 325 Mg Tablet PO 650 mg Q6H PRN PRN Administration Pain 1-10 Or Fever >100.7 Albuterol Sulfate 2.5 mg 08/02/24 18:50 Albuterol 2.5 Mg/3 Ml Vial.Neb. INHALATION Q2H PRN PRN SOB &/OR WHEEZING Albuterol/Ipratropium 3 ml 08/02/24 22:00 08/04/24 07:04 Ipratropium/Albuterol Sulfate 3 Ml Ampul.Neb INHALATION 3 ml BID.RT HUMBERTO Administration Atorvastatin Calcium 40 mg 08/02/24 22:00 08/03/24 22:01 Atorvastatin Calcium 40 Mg Tablet PO 40 mg QHS HUMBERTO Administration Budesonide 0.5 mg 08/02/24 22:00 08/04/24 07:04 Budesonide Respules 0.5 Mg/2 Ml Ampul.Neb. INHALATION 0.5 mg BID.RT HUMBERTO Administration Bupropion HCl 150 mg 08/03/24 10:00 08/04/24 08:15 Bupropion (Xl) 150 Mg Tablet.Xl PO 150 mg DAILY HUMBERTO Administration Cholecalciferol 125 mcg 08/03/24 10:00 08/04/24 08:15 Cholecalciferol (Vit D3) 125 Mcg Capsule (5,000 Units) PO 125 mcg DAILY HUMBERTO Administration Doxazosin Mesylate 2 mg 08/03/24 10:00 08/04/24 08:13 Doxazosin 1 Mg Tablet PO 2 mg DAILY HUMBERTO Administration Furosemide 40 mg 08/04/24 10:00 08/04/24 08:15 Furosemide 40 Mg Tablet PO 40 mg DAILY HUMBERTO Administration Protocol Gabapentin 600 mg 08/03/24 10:00 08/04/24 08:19 Gabapentin 600 Mg Tablet PO 600 mg BID HUMBERTO Administration Pantoprazole Sodium 40 mg/ 100 mls @ 300 mls/hr 08/02/24 22:00 08/04/24 08:42 Sodium Chloride IV Infused Q12 HUMBERTO Infusion Sodium Chloride 250 mls @ 15 mls/hr 08/03/24 18:51 IV .[id number] PRN Saline Flush Sodium Chloride 250 mls @ 15 mls/hr 08/03/24 18:51 IV .[id number] PRN Additional IVPB Infusion Lactated Ringer's 1,000 mls @ 15 mls/hr 08/04/24 15:45 IV .Q48H HUMBERTO Isosorbide Mononitrate 30 mg 08/03/24 10:00 08/04/24 08:14 Isosorbide Mononitrate 30 Mg Tablet PO 30 mg DAILY HUMBERTO Administration Protocol Loratadine 10 mg 08/03/24 10:00 08/04/24 08:24 Loratadine 10 Mg Tablet PO Not Given DAILY HUMBERTO Melatonin 3 mg 08/02/24 18:50 08/03/24 02:00 Melatonin 3 Mg Tablet PO 3 mg QHS PRN PRN Administration INSOMNIA Metoprolol Tartrate 25 mg 08/02/24 22:00 08/04/24 08:14 Metoprolol Tartrate 25 Mg Tablet PO 25 mg BID HUMBERTO Administration Protocol Mirtazapine 30 mg 08/02/24 22:00 08/03/24 22:01 Mirtazapine 30 Mg Tablet PO 30 mg QHS HUMBERTO Administration Montelukast Sodium 10 mg 08/03/24 22:00 08/03/24 22:00 Montelukast 10 Mg Tablet PO 10 mg QHS HUMBERTO Administration Multivitamins 1 tablet 08/03/24 10:00 08/04/24 08:24 Multivitamins,Therapeutic Tablet PO Not Given DAILYCM HUMBERTO Ondansetron HCl 4 mg 08/02/24 18:50 Ondansetron 4 Mg/2 Ml Vial IV Q8H PRN PRN NAUSEA/VOMITING Oxycodone HCl 2.5 mg 08/02/24 18:50 Oxycodone 5 Mg Tablet PO Q4H PRN PRN Pain Score 4-10 Senna/Docusate Sodium 2 tablet 08/02/24 22:00 08/04/24 08:13 Senna/Docusate Sodium 1 Tablet PO 2 tablet BID HUMBERTO Administration Sodium Chloride 10 - 40 ml 08/02/24 18:33 08/03/24 23:25 0.9% Saline Lock 10 Ml Syringe IV 10 ml UD PRN Administration SALINE FLUSH Sodium Chloride 10 - 40 ml 08/03/24 18:51 0.9% Saline Lock 10 Ml Syringe IV UD PRN SALINE FLUSH PFS Medical History (Updated 08/04/24 @ 11:26 by Steph Mccollum) TIA (transient ischemic attack) Personal history of other diseases of digestive system Noninfective gastroenteritis and colitis, unspecified Essential hypertension Diaphragmatic hernia without obstruction or gangrene Constipation, unspecified Atherosclerotic heart disease of [place] coronary artery without angina pectoris Other specified disorders of white blood cells Other lack of coordination Hyperthyroidism Gout, unspecified Difficulty in walking, not elsewhere classified Depression, unspecified Calculus of gallbladder and bile duct without cholecystitis without obstruction Age-related physical debility Hypertension Polyneuropathy PVD (peripheral vascular disease) Osteoporosis Hypothyroidism GERD (gastroesophageal reflux disease) Hypertensive heart and chronic kidney disease stage 3 Anxiety Asthma Sleep apnea COPD (chronic obstructive pulmonary disease) Gout CKD (chronic kidney disease) stage 3, GFR 30-59 ml/min Major depressive disorder CHF (congestive heart failure) Home Medications ?Medication ?Instructions ?Recorded ?Last Taken ?Type Lactobacillus-Bifidobacterium 30 1 cap PO DAILY Unknown History billion cell capsule,delayed release (Ultimate Harrison Probiotic) acetaminophen 325 mg capsule 650 mg PO BID pain Unknown History (Tylenol) azelastine 137 mcg (0.1 %) nasal 1 spray intranasal BI D nasal spray 10/30/22 Unknown History spray Held on 08/02/24. Instructions: Order Completed bupropion HCl 150 mg 24 hr tablet, 150 mg PO DAILY Unknown History extended release calcium carbonate (Calcium 500) 500 mg PO DAILY Unknown History dicyclomine 10 mg capsule 10 mg PO Q6H digestive issue s 10/30/22 Unknown History doxazosin 2 mg tablet (Cardura) 2 mg PO DAILY 10/30/22 10/30/22 History fluticasone propionate 50 1 spray intranasal DAILY Unknown History mcg/actuation nasal spray,suspension (24 Hour Allergy Relief) food supplemt, lactose-reduced 8 ml PO DAILY 10/30/22 Unknown History (Ensure oral liquid) gabapentin 600 mg tablet 600 mg PO BID 10/30/22 Unkno wn History inulin 2 gram chewable tablet 5 g PO DAILY 10/30/22 Un known History (Fiber Gummies) isosorbide mononitrate 30 mg 30 mg PO DAILY 10/30/22 U nknown History tablet,extended release 24 hr metoprolol tartrate 25 mg tablet 25 mg PO BID 10/30/22 Unknown History mirtazapine 30 mg tablet 30 mg PO QHS 10/30/22 Unknow n History montelukast 10 mg tablet 10 mg PO QHS 10/30/22 Unknow n History multivitamin (Daily Multi-Vitamin 1 tab PO DAILY 10/30 Unknown History tablet) pantoprazole 40 mg tablet,delayed 40 mg PO DAILY 10/30 Unknown History release potassium chloride 20 mEq 20 meq PO DAILY 10/30/22 Unk nown History tablet,extended release (K-Tab) atorvastatin 40 mg tablet 40 mg PO QHS 20 days #30 tab s 11/02/22 Unknown Rx atorvastatin 40 mg tablet 40 mg PO DAILY hyperlipidemi a 07/25/24 Unknown History azelastine 137 mcg (0.1 %) nasal intranasal allergies 07/25/24 Unknown History spray budesonide 0.5 mg/2 mL suspension mg scleroscope tester 07/25/24 Unkn own History for nebulization bupropion HCl 150 mg 24 hr tablet, 150 mg PO DAILY . 0 07/25/24 Unknown History extended release cetirizine 5 mg tablet 5 mg PO DAILY . 07/25/24 Unk nown History clopidogrel 75 mg tablet 75 mg PO DAILY . 07/25/24 Un known History Held on 07/28/24. Instructions: Hold while taking Eliquis for 1 month. dicyclomine 10 mg capsule 10 mg PO TID . 07/25/24 Unkn own History doxazosin 2 mg tablet 2 mg PO DAILY . 07/25/24 Unk nown History gabapentin 100 mg capsule PO . [...] . 07/25/24 U nknown History tablet,extended release(part/cryst) acetaminophen 500 mg tablet 1,000 mg (2 x 500 mg) PO Q 8 #0 tabs 07/28/24 Unknown Rx apixaban 5 mg tablet (Eliquis) 2.5 mg (1/2 x 5 mg) PO BID #0 tabs 07/28/24 Unknown Rx ascorbic acid (vitamin C) 500 mg 500 mg PO BID #60 tab s 07/28/24 Unknown Rx tablet calcium carbonate 500 mg (2.5 x 200 mg calcium (500 07/28/24 Unknown Rx mg)) PO TIDCM #0 tabs cholecalciferol (vitamin D3) 125 125 mcg PO DAILY #0 c aps 07/28/24 Unknown Rx mcg (5,000 unit) capsule ferrous sulfate 325 mg (65 mg 325 mg PO DAILY 30 days #30 tabs 07/28/24 Unknown Rx iron) tablet (FeroSul) furosemide 40 mg tablet 40 mg PO DAILY #0 tabs 07/28 Unknown Rx polyethylene glycol 3350 17 17 g PO BID 1 month #1,020 grams 07/28/24 Unknown Rx gram/dose oral powder (Miralax) sennosides 8.6 mg-docusate sodium 2 tab PO BID #0 tabs 07/28/24 Unknown Rx 50 mg tablet (Stimulant Laxative Plus) ascorbic acid (vitamin C) 500 mg 500 mg PO BID 08/02/ 5 Unknown History capsule budesonide 0.5 mg/2 mL suspension 0.5 mg inhalation BI D 08/02/24 Unknown History for nebulization cetirizine 5 mg tablet 5 mg PO DAILY 08/02/24 Unkno wn History cholecalciferol (vitamin D3) 125 125 mcg PO DAILY 07/11 06/03 Unknown History mcg (5,000 unit) tablet (Vitamin D3) clopidogrel 75 mg tablet 75 mg PO DAILY blood thinner 08/02/24 Unknown History ferrous sulfate 325 mg (65 mg 325 mg PO DAILY 08/02/24 Unknown History iron) tablet furosemide 40 mg tablet 40 mg PO DAILY fluid retenti on 08/02/24 Unknown History inulin-chromium picolinate 2 1 tab PO DAILY 08/02/24 U nknown History gram-100 mcg chewable tablet (Fiber Select Gummies) ipratropium 0.5 mg-albuterol 3 mg 3 ml inhalation BID 08/02/24 Unknown History (2.5 mg base)/3 mL nebulization soln polyethylene glycol 3350 17 17 g PO BID 08/02/24 Unkno wn History gram/dose oral powder (Miralax) sennosides 8.6 mg-docusate sodium 1 tab PO DAILY const ipation 08/02/24 Unknown History 50 mg tablet (Senexon-S) Allergy/AdvReac Type Severity Reaction Status Date / Time cephalexin Allergy PT UNSURE Verified 08/04/24 11:26 OF REACTION clarithromycin Allergy PT UNSURE Verified 08/04/24 11:26 OF REACTION clindamycin Allergy PT UNSURE Verified 08/04/24 11:26 OF REACTION doxazosin Allergy NEEDS Verified 08/04/24 11:26 FOLLOW-UP erythromycin base Allergy PT UNSURE Verified 08/04/24 11:26 OF REACTION eszopiclone Allergy PT UNSURE Verified 08/04/24 11:26 OF REACTION Fish Containing Products Allergy PT UNSURE Verified 08/04/24 11:26 (seafood) OF REACTION fish derived Allergy PT UNSURE Verified 08/04/24 11:26 OF REACTION lincomycin Allergy PT UNSURE Verified 08/04/24 11:26 OF REACTION lorazepam Allergy PT UNSURE Verified 08/04/24 11:26 OF REACTION mushroom (mushrooms) Allergy PT UNSURE Verified 08/04/24 11:26 OF REACTION NSAIDS (Non-Steroidal Allergy PT UNSURE Verified 08/04/24 11:26 Anti-Inflamma OF REACTION Penicillins Allergy PT UNSURE Verified 08/04/24 11:26 OF REACTION rofecoxib Allergy PT UNSURE Verified 08/04/24 11:26 OF REACTION salicylates Allergy PT UNSURE Verified 08/04/24 11:26 OF REACTION temazepam Allergy PT UNSURE Verified 08/04/24 11:26 OF REACTION Tetracyclines Allergy PT UNSURE Verified 08/04/24 11:26 OF REACTION trazodone Allergy PT UNSURE Verified 08/04/24 11:26 OF REACTION Surgical History (Updated 08/04/24 @ 11:26 by Steph Mccollum) Presence of aortocoronary bypass graft History of cataract surgery History of lysis of adhesions Hx of hysterectomy Hx of total knee replacement Presence of aortocoronary bypass graft Social History (System 08/04/24 @ 11:26 by Steph Mccollum) Smoking Status: Never smoker Review of Systems (Anesthesia) ROS Narrative System reviewed and no additional complaints, except as documented. Physical Exam Const Orientation / Consciousness: confused Neck full ROM Resp normal respiratory effort 08/04/24 1601 <Electronically signed by Jose Krueger CRNA> Date _ Jose Krueger CRNA Cosigner Signature: Date CC: ~ Signed [facility] Work Phone: 1(121) 622-699806-26-[address] [facility] Medical Records Department [address] [place] [address] EGD Report MR#: [id number] Acct: [id number] Name: KATHERINE JUDGE Rep #:[id number] : 1935 89 From: Nomi Friend DO PCP: Dr. Kam Ocampo Sr., DO Status:A DM IN Patient Name: Katherine Judge Procedure Date: 08/04/2024 4:10 PM Date of : 1935 Age: 89 Procedure: Upper GI endoscopy Indications: Iron deficiency anemia Providers: Nomi Kee DO Medicines: Monitored Anesthesia Care Patient Profile: This is an 89 year old female. Refer to note in patient chart for documentation of history and physical. Patient has symptoms. Complications: No immediate complications. Procedure: Pre-Anesthesia Assessment: - Prior to the procedure, a History and Physical was performed, and patient medications and allergies were reviewed. The patient is competent. The risks and benefits of the procedure and the sedation options and risks were discussed with the patient. All questions were answered and informed consent was obtained. Patient identification and proposed procedure were verified by the physician in the pre-procedure area. Mental Status Examination: alert and oriented. Airway Examination: normal oropharyngeal airway and neck mobility. Respiratory Examination: clear to auscultation. CV Examination: normal. Prophylactic Antibiotics: The patient does not require prophylactic antibiotics. Prior Anticoagulants: The patient has taken no anticoagulant or antiplatelet agents. ASA Grade Assessment: III - A patient with severe systemic disease. After reviewing the risks and benefits, the patient was deemed in satisfactory condition to undergo the procedure. The anesthesia plan was to use monitored anesthesia care (MAC). Immediately prior to administration of medications, the patient was re-assessed for adequacy to receive sedatives. The heart rate, respiratory rate, oxygen saturations, blood pressure, adequacy of pulmonary ventilation, and response to care were monitored throughout the procedure. The physical status of the patient was re-assessed after the procedure. After obtaining informed consent, the endoscope was passed under direct vision. Throughout the procedure, the patient's blood pressure, pulse, and oxygen saturations were monitored continuously. The gastroscope was introduced through the mouth, and advanced to the fourth part of the duodenum. Small bowel enteroscopy was deemed necessary. The upper GI endoscopy was accomplished without difficulty. The patient tolerated the procedure well. Scope In: 4:29:53 PM Scope Out: 4:33:44 PM Total Procedure Duration Time 0 hours 3 minutes 51 seconds Findings: The examined esophagus was normal. A large hiatal hernia was present. The exam of the duodenum was otherwise normal. Impression: - Normal esophagus. - Large hiatal hernia. - No specimens collected. Recommendation: - Discharge patient to home. - Resume previous diet. - Continue present medications. - [facility] care. - Resume previous diet. - Continue present medications. Procedure Code(s): --- Professional --- 37451, Small intestinal endoscopy, enteroscopy beyond second portion of duodenum, not including ileum; diagnostic, including collection of specimen(s) by brushing or washing, when performed (separate procedure) CPT copyright 2021 [employer]. All rights reserved. The codes documented in this report are preliminary and upon java portal developer review may be revised to meet current compliance requirements. Nomi Kee DO 08/04/2024 4:42:45 PM This report has been signed electronically. Number of Addenda: 0 Note Initiated On: 08/04/2024 4:10 PM 08/04/24 1642 Date _ Nomi Kee DO Cosigner Signature: Date (if indicated) CC: Dr. Kam Ocampo Sr., DO; Nomi Kee DO ~ Date Dictated: 08/04/24 1610 Date Transcribed: Patient Care Assistant: ANIYAH Signed [facility]06-26-[address] [facility] Medical Records Department [address] [place] [address] Anesthesia Postop Eval I 08/04/24 1641 MR#: [id number] Acct: [id number] Name: KATHERINE JUDGE Wilber Rep #:[id number] : 1935 89 From: Jose Espinoza RNA PCP: Dr. Kam Ocampo Sr., DO Status:A DM IN Y Race: C Location: [place] [address] Anesthesia: Postop Eval I Current Vital Signs Temperature: 97 F Pulse Rate: 72 Blood Pressure: 94/44 Respiratory Rate: 14 Pulse Ox: 94 Oxygen Delivery Method: Nasal Cannula Oxygen Flow Rate (L/min): 2 Assessment Airway patent: Yes Spontaneous unlabored respirations: Yes Mental status: Awake and Calm nausea: No Vomiting: No Anesthesia Complication: No Fluid Hydration Crystalloid volume administer (ml): 100 Total IV fluid infused: 100 Progress Note Anesthesia document: Postop Eval 1 completed: Yes 08/04/24 1641 DIALYSIS NURSE> Date _ Jose Krueger DIALYSIS NURSE Cosigner Signature: Date CC: ~ Signed [facility]06-26-2025 Progress note [facility] Medical Records Department [address] [place] [address] Progress Note - Hospitalist 08/04/24 1636 MR#: [id number] Acct: [id number] Name: KATHERINE JUDGE Rep #:[id number] : 1935 89 From: Neymra Herrera PCP: Dr. Kam Ocampo Sr., DO Status:A DM IN Location: [place] [address]1 Reason for Visit Reason for Visit: Diagnoses Anemia, unspecified (08/02/24) Gastrointestinal hemorrhage, unspecified (08/02/24) Altered mental status, unspecified (08/02/24) Objective Data Objective Data Vital Signs: Vital Signs Temp Pulse Resp BP Pulse Ox O2 Del Method O2 Flow Rate 99 F 85 16 103/49 L 92 Room Air 2 08/04/24 16:01 08/04/24 16:01 08/04/24 16:01 08/04/24 16:01 08/04/24 16:01 08/04/24 15:14 08/04/24 16:01 Oxygen Flow Rate (L/min) 2 Oxygen Delivery Method Room Air Weight: 113 lb 15.664 oz Body Mass Index (BMI) 22.2 Intake & Output: Intake and Output for Last 24 Hours 08/02/24 08/03/24 08/04/24 23:59 23:59 23:59 Intake Total 100 / 100 700 / 700 1100 / 1100 Output Total 550 / 550 700 / 900 400 / 400 Balance -450 / -450 0 / -200 700 / 700 Lab / Micro Data 08/04/24 05:28 08/04/24 05:28 Labs: Laboratory Results - last 24 hr 08/04/24 05:28: WBC 7.8, RBC 3.27 L, Hgb 11.0 L, Hct 32.0 L, MCV 97.9, MCH 33.6 H, MCHC 34.4, RDW Std Deviation 50.4 H, RDW Coeff of Tamera 16.7 H, Plt Count 286, MPV 8.7, PT 14.1, INR 1.1, APTT 29.9, Sodium 143, Potassium 3.4, Chloride 102, Carbon Dioxide 29.5, Anion Gap 12, BUN 12, Creatinine 0.74, Estim Creat Clear Calc 34.91 L, Est GFR (MDRD) Non-Af 78, BUN/Creatinine Ratio 15.8, Glucose 98, Calcium 9.4, TSH 1.990 Micro: Microbiology 08/02/24 14:55 Urine, Catheterized Urine Culture - Final Culture exhibits no growth. 08/02/24 15:45 Stool Stool Occult Blood (AYAH) - Final Occult Blood Positive Radiography Diagnostic Testing: Radiology Impression Abdomen/Pelvis CT 08/02/24 14:09 IMPRESSION: 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 Distended urinary bladder. Minimal intrahepatic biliary ductal dilatation. Reading Location: [id number] Brain CT 08/03/24 11:10 IMPRESSION: NO ACUTE INTRACRANIAL HEMORRHAGE Chronic changes. Reading Location: [id number] Pelvis CT 08/03/24 11:10 IMPRESSION: Status post right intertrochanteric fracture reduction with compression screw and kaleb fixation device. Postoperative soft tissue changes. No evidence of localized hematoma. Reading Location: [id number] Physical Exam Narrative Seen and examined. Patient is elderly lady with dementia and forgetfulness. She cannot recall her age but she told thedate of and current month correctly. Her has passed. Physical exam General: Alert, Oriented x3, Cooperative. Not confused or not in delirium HEENT: Atraumatic, PERRLA, EOMI, Normocephalic. Oral: No Gingival or Mucosal Lesions/ Ulcerations Neck: Supple, No JVD, Negative Carotid Bruits Chest wall/Lungs: Air entry diminished in bilateral lung bases. No crepitation/rhonchi Cardiovascular: Regular rate and rhythm, Normal S1,S2, No M/G/R Abdomen: Bowel Sounds Present, Soft, Non Tender, Non-Distended : No dysuria. No renal angle tenderness. No suprapubic tenderness. Extremities: No edema, Capillary Refill Less than 3 Seconds Skin: No rashes, No breakdown Musculoskeletal: No Tenderness to Palpation of Joints or Extremities Neurological: Cranial nerves II-XII grossly intact, DTR 2+/4. No acute focal neurological deficit. Psych/Mental Status: Dementia. Assessment & Plan Assessment/Plan (1) GI bleed: (2) Anemia: PLAN: Plan Patient is an 89-year-old female who presented to [facility] ED on 08/02/2024 with altered mentation and low hemoglobin. 1. Acute on chronic anemia with concern for upper GI bleed, history of gastric pull-through procedure ? GI following. Hemoglobin 7.0 on admit. Had hemoglobin reading of 6.2 in chart but on redraw was 7.0. Hemoccult positive in the ED so there was concern for upper GI bleed. Notably hemoglobin droppedfrom 10.5 to 7.3 during recent hospitalization after right hip procedure noted below, so hemoglobinon admission was similar to previous. CT brain negative for bleed. CT hip with noconcern for postoperative hematoma. Given 2 units of packed red blood cells with hemoglobin improvement to 9.6. Discussed with GI and does given history ofgastric pull- through procedure, there is concern that she couldhave a slow upper GI bleed. Continue IV PPI twice daily for now. N.p.o. at midnight with plan for EGD tomorrow. 08/04: Posttransfusion H&H 11/32%. Platelet count 200 86K, INR 1.1. Patient is not confused or delirious. Discussed with Dr. Kee and patient is well optimized for EGD. Stool for occult blood was positive. 2. Acute metabolic encephalopathy ? Patient alert and oriented x 1 to person only on admit. Per family, is typically alert and oriented x 3 and mentally sharp. Unclear etiology for encephalopathy at this time. CT brain negative. Infectious workup negative to this point and patient noninfectious appearing. Continue to monitor and avoid sedating medications as able. 08/04: Acute metabolic encephalopathy resolved. 3. Recent right hip fracture s/p cephalomedullary nail placement with acute on chronic debility ? PT/OT/case management following. Recently hospitalized here from 07/25 to 07/29for fall with right hip fracture. S/p right femur cephalomedullary nail placement on 07/26. Patient discharged to [facility] and suspect she will need SNF placement again on this discharge. Appreciate therapy recommendations. 4. Chronic HFpEF, history of CAD with stenting, hypertension, hyperlipidemia, history of CVA, chronic hypoxic respiratory failure ? Hemodynamically stable on 2 L on admit. Was recently discharged on 2 L nasal cannula. Last echo in 2022 showed EF 70%, LA enlargement but no diastolic dysfunction, no valvular issues. Continue homestatin, Lasix, doxazosin, Imdur,and Lopressor. Holding home Plavix as above. 5. Concern for urinary retention ? Patient with significant distended urinary bladder on CT on admit. However, has voided without issue since admission with postvoid residuals that are negligible. Continue doxazosin as above. 6. Anxiety/depression ? Stable. Continue home bupropion and mirtazapine. 7. GERD ? Continue home PPI. DVT prophylaxis: SCDs CODE STATUS: DNR CCA, DNI Expected disposition: Likely back to longterm, TBD Microbiology Past 72 Hours 08/02/24 14:55 Urine, Catheterized Urine Culture - Final Culture exhibits no growth. 08/02/24 15:45 Stool Stool Occult Blood (AYAH) - Final Occult Blood Positive Laboratory Results 08/04/24 05:28: WBC 7.8, RBC 3.27 L, Hgb 11.0 L, Hct 32.0 L, MCV 97.9, MCH 33.6 H, MCHC 34.4, RDW Std Deviation 50.4 H, RDW Coeff of Tamera 16.7 H, Plt Count 286, MPV 8.7, PT 14.1, INR 1.1, APTT 29.9, Sodium 143, Potassium 3.4, Chloride 102, Carbon Dioxide 29.5, Anion Gap 12, BUN 12, Creatinine 0.74, Estim Creat Clear Calc 34.91 L, Est GFR (MDRD) Non-Af 78, BUN/Creatinine Ratio 15.8, Glucose 98, Calcium 9.4, TSH 1.990 Charges/Coding Visit Charges Inpatient E&M: 69003 Subs Hosp L2 08/04/24 1641 Cosigner Signature (if applicable): CC: ~ Signed [facility]06-26-2025 Progress note [facility] Medical Records Department [address] [place] [address] Progress Note 08/04/24 1611 MR#: [id number] Acct: [id number] Name: KATHERINE JUDGE Rep #:[id number] : 1935 89 From: Nomi Friend DO PCP: Dr. Kam Ocampo Sr., DO Status:A DM IN Location: [place] [address] Progress Note Patient has been n.p.o. for an upper endoscopy today. All questions concerns answered by the patient's son. Physical Exam Const alert, oriented x3, no apparent distress and healthy appearing General Appearance: cooperative GI normal to inspection, nondistended, normoactive bowel sounds, soft to palpation,non-tender and non-distended Percussion: normal to percussion Rectal Exam: deferred Assessment & Plan Assessment/Plan (1) Anemia: (2) GI bleed: PLAN: PLAN: 89-year-old with past medical history of coronary artery disease status post CABG on Plavix, iron deficiency anemia on iron, acute CVA status post tPA treatment arrives with decrease in hemoglobin. Apparently she had sometype of surgery on her upper GI tract requiring a gastric pull-through. Her hemoglobin went down to 4 grams and came back up after transfusion. This is thereason why she came in the hospital initially due to decrease in hemoglobin. I think she should at least have an upper endoscopy to evaluate upper GI tract forsigns of acute on chronic GI blood loss in the setting of iron deficiency anemiain a patient on iron therapy. Currently at this time she has been workedup foraltered mental status by primary team. When patient is medically stable we can pursue endoscopy. PLAN: Plan 08/04/2024-patient will undergo an upper endoscopy. The patient's power of employee benefits attorney her son was explained alternatives, risk and benefits include not withstanding bleeding, infection, sepsis, perforation, need for surgery . She will have an ASA 3. Visit Charges Inpatient E&M: 30398 Subs Hosp L3 08/04/24 1613 Nomi Friend DO Cosigner Signature (if applicable): CC: ~ Signed [facility]06-26-[address] [facility] Medical Records Department [address] [place] [address] Pre-Anesthesia Evaluation 08/04/24 1553 MR#: [id number] Acct: [id number] Name: KATHERINE JUDGE Rep #:[id number] : 1935 89 From: Jose NELSON PCP: Dr. Kam cOampo Sr., DO Status:A DM IN Y Race: C Location: [place] [address] ASA Classification* ASA Classification ASA Classification: 3 and E Assessment & Plan Anesthesia* Anesthesia Assessment Anesthesia Assessment: Discussed sedation and/or anesthesia options, risks, benefits, and alternatives with patient/parents/legal guardian/POA. Questions invited. The patient/parents/legal guardian/POA seems to understand and agrees to proceedwith anesthesia plan. Reviewed the physical assessment, medical history, allergy history and patient home medications list prior to surgery/procedure/anesthetic and documented any changes. Performed airway and anesthesia risk assessments. Anesthesia Type Anesthesia Type: MAC History Source History Obtained from:: Patient, Chart, Parent/ Guardian and Poor Historian (pt answering most questions appropriately) Anesthesia Focused Assessment* Temperature: 99 F Pulse Rate: 85 Blood Pressure: 103/49 Respiratory Rate: 16 Pulse Ox: 92 Oxygen Flow Rate (L/min): 2 Airway Assessment Mouth opens: >3 cm Mallampati Score: IV Teeth Condition: Missing (multiple on bottom, no loose teeth) Neck Range of motion (ROM): Full ROM Labs Anesthesia Preop lab: CBC WBC 7.8 K/mm3 (4.4-11.0) 08/04/24 05:08/04/24 RBC 3.27 M/mm3 (4.2-5.4) L 08/04/24 05:08/04/24 Hgb 11.0 g/dL (12.0-15.0) L 08/04/24 05: 5 Hct 32.0 % (37-47) L 08/04/24 05:28 08/04/24 Plt Count 286 K/mm3 (150-450) 08/04/24 05:28 08/04/24 CHEMISTRY Potassium 3.4 mmol/L (3.3-5.1) 08/04/24 05:28 08/04/24 Sodium 143 mmol/L (133-145) 08/04/24 05:28 08/04/24 Phosphorus 3.6 mg/dL (2.5-4.9) 09/02/23 05:02 09/02/23 BUN 12 mg/dL (4-19) 08/04/24 05:08/04/24 Creatinine 0.74 mg/dL (0.70-1.20) 08/04/24 05:08/04/24 Glucose 98 mg/dL (70-99) 08/04/24 05:28 08/04/24 POC Glucose 106 mg/dL (74-106) 08/03/24 10:31 08/03/24 TSH 1.990 uIU/mL (0.300-4.200) 08/04/24 05:07/11 COAG PT 14.1 SECONDS (11.7-14.9) 08/04/24 05:28 Pre-Assessment Diagnosis/Proposed Procedure Planned Operative Procedure(s): EGD, possible cautery Anesthesia History Anesthesia History - crime scene photographer: Anesthesia History - crime scene photographer Hx Hospitalization Any Problems With Anesthesia No 08/04/24 15:15 Cholinesterase deficiency No 08/04/24 15:15 You/Your Family Experience No 08/04/24 15:15 fever (hyperthermia) with Relationship Recent Exposure to Contagious No 08/04/24 15:15 Disease Does patient have nerve No 08/04/24 15:15 stimulator Patient instructed to have No 08/04/24 15:15 device shut off --Does patient have Pacemaker No 08/04/24 15:25 or ICD? When Was Last Pacemaker Check QUESTION #4 FULL TEXT: You/Your Family Experience fever (hyperthermia) with Anesthesia Last Oral Intake Last Oral intake: Last Oral Intake NPO since 00:00 08/04/24 15:25 Meds taken in AM with sips of Yes 08/04/24 15:25 water? Meds patient instructed to see mar 08/04/24 15:25 take am of surgery PONV PONV - crime scene photographer: PONV - crime scene photographer Female HX of Motion Sickness HX of N/V After Surgery Non-Smoker Duration of Surgery greater than 60 minutes Number of Risk Factors PONV Score Height & Weight Height & Weight: Anesthesia: Height & Weight Height 5 ft 08/04/24 15:25 Weight: 51.7 kg 08/04/24 15:25 Body Mass Index (BMI) 22.2 08/04/24 15:25 Respiratory Assessment Respiratory Assessment - crime scene photographer: Respiratory Tract Infection Hx - crime scene photographer Hx Respiratory Tract Infection No 08/04/24 15:15 STOP Sleep Apnea STOP Sleep Apnea - crime scene photographer: STOP Sleep Apnea - crime scene photographer Hx Hypertension Yes 08/03/24 12:16 Hx Sleep Apnea No 10/30/22 22:55 CPAP BIPAP Do you snore loudly (louder than talking or can be heard Do you often feel tired/ fatigued/ sleepy during daytime? Has anyone observed you stop breathing during sleep? STOP Results QUESTION #5 FULL TEXT : Do you snore loudly (louder than talking or can be heard through closeddoors)? Tobacco Use History Tobacco Use History - crime scene photographer: Tobacco Use History - crime scene photographer Tobacco Use Non-smoker 11/02/22 12:18 Smoking Status Never smoker 08/02/24 13:06 Hx Tobacco Use No 10/30/22 22:55 Years Smoking Packs Smoked per Day Smoking Cessation Date was within the last 15 years Hx Smoking Cessation Date Hx Smoking Cessation Counseling Hematologic Medial History Hematologic Hx - crime scene photographer: Hematologic 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 Hx of Blood Transfusion Hx of Transfusion in last 3 Months Date of Last Transfusion (if within last 3 months) Ever experience any problems with transfusion(s)? Specify any problems Hx of Preganancy in last 3 Months Nurse Filling Out Transfusion & Questions: Date: Time: Patient unable to answer at this time (ie. confused, unrespo /Reproduction History /Reproductive History - crime scene photographer: /Reproductive Hx- crime scene photographer Hx Now No 08/04/24 15:15 Gestational Age (in weeks): EDC: Hx Hx Para Hx Section SAB No 08/04/24 15:15 Active Medications Active Medications: Current Medications Generic Name Dose Route Start Last Admin Trade Name Freq PRN Reason Stop Dose Admin Acetaminophen 650 mg 08/02/24 18:50 08/03/24 02:00 Acetaminophen 325 Mg Tablet PO 650 mg Q6H PRN PRN Administration Pain 1-10 Or Fever >100.7 Albuterol Sulfate 2.5 mg 08/02/24 18:50 Albuterol 2.5 Mg/3 Ml Vial.Neb. INHALATION Q2H PRN PRN SOB &/OR WHEEZING Albuterol/Ipratropium 3 ml 08/02/24 22:00 08/04/24 07:04 Ipratropium/Albuterol Sulfate 3 Ml Ampul.Neb INHALATION 3 ml BID.RT HUMBERTO Administration Atorvastatin Calcium 40 mg 08/02/24 22:00 08/03/24 22:01 Atorvastatin Calcium 40 Mg Tablet PO 40 mg QHS HUMBERTO Administration Budesonide 0.5 mg 08/02/24 22:00 08/04/24 07:04 Budesonide Respules 0.5 Mg/2 Ml Ampul.Neb. INHALATION 0.5 mg BID.RT HUMBERTO Administration Bupropion HCl 150 mg 08/03/24 10:00 08/04/24 08:15 Bupropion (Xl) 150 Mg Tablet.Xl PO 150 mg DAILY HUMBERTO Administration Cholecalciferol 125 mcg 08/03/24 10:00 08/04/24 08:15 Cholecalciferol (Vit D3) 125 Mcg Capsule (5,000 Units) PO 125 mcg DAILY HUMBERTO Administration Doxazosin Mesylate 2 mg 08/03/24 10:00 08/04/24 08:13 Doxazosin 1 Mg Tablet PO 2 mg DAILY HUMBERTO Administration Furosemide 40 mg 08/04/24 10:00 08/04/24 08:15 Furosemide 40 Mg Tablet PO 40 mg DAILY HUMBERTO Administration Protocol Gabapentin 600 mg 08/03/24 10:00 08/04/24 08:19 Gabapentin 600 Mg Tablet PO 600 mg BID HUMBERTO Administration Pantoprazole Sodium 40 mg/ 100 mls @ 300 mls/hr 08/02/24 22:00 08/04/24 08:42 Sodium Chloride IV Infused Q12 HUMBERTO Infusion Sodium Chloride 250 mls @ 15 mls/hr 08/03/24 18:51 IV .[id number] PRN Saline Flush Sodium Chloride 250 mls @ 15 mls/hr 08/03/24 18:51 IV .[id number] PRN Additional IVPB Infusion Lactated Ringer's 1,000 mls @ 15 mls/hr 08/04/24 15:45 IV .Q48H HUMBERTO Isosorbide Mononitrate 30 mg 08/03/24 10:00 08/04/24 08:14 Isosorbide Mononitrate 30 Mg Tablet PO 30 mg DAILY HUMBERTO Administration Protocol Loratadine 10 mg 08/03/24 10:00 08/04/24 08:24 Loratadine 10 Mg Tablet PO Not Given DAILY HUMBERTO Melatonin 3 mg 08/02/24 18:50 08/03/24 02:00 Melatonin 3 Mg Tablet PO 3 mg QHS PRN PRN Administration INSOMNIA Metoprolol Tartrate 25 mg 08/02/24 22:00 08/04/24 08:14 Metoprolol Tartrate 25 Mg Tablet PO 25 mg BID HUMBERTO Administration Protocol Mirtazapine 30 mg 08/02/24 22:00 08/03/24 22:01 Mirtazapine 30 Mg Tablet PO 30 mg QHS HUMBERTO Administration Montelukast Sodium 10 mg 08/03/24 22:00 08/03/24 22:00 Montelukast 10 Mg Tablet PO 10 mg QHS HUMBERTO Administration Multivitamins 1 tablet 08/03/24 10:00 08/04/24 08:24 Multivitamins,Therapeutic Tablet PO Not Given DAILYCM HUMBERTO Ondansetron HCl 4 mg 08/02/24 18:50 Ondansetron 4 Mg/2 Ml Vial IV Q8H PRN PRN NAUSEA/VOMITING Oxycodone HCl 2.5 mg 08/02/24 18:50 Oxycodone 5 Mg Tablet PO Q4H PRN PRN Pain Score 4-10 Senna/Docusate Sodium 2 tablet 08/02/24 22:00 08/04/24 08:13 Senna/Docusate Sodium 1 Tablet PO 2 tablet BID HUMBERTO Administration Sodium Chloride 10 - 40 ml 08/02/24 18:33 08/03/24 23:25 0.9% Saline Lock 10 Ml Syringe IV 10 ml UD PRN Administration SALINE FLUSH Sodium Chloride 10 - 40 ml 08/03/24 18:51 0.9% Saline Lock 10 Ml Syringe IV UD PRN SALINE FLUSH PFSH Medical History (Updated 08/04/24 @ 11:26 by Steph Mccollum) TIA (transient ischemic attack) Personal history of other diseases of digestive system Noninfective gastroenteritis and colitis, unspecified Essential hypertension Diaphragmatic hernia without obstruction or gangrene Constipation, unspecified Atherosclerotic heart disease of [place] coronary artery without angina pectoris Other specified disorders of white blood cells Other lack of coordination Hyperthyroidism Gout, unspecified Difficulty in walking, not elsewhere classified Depression, unspecified Calculus of gallbladder and bile duct without cholecystitis without obstruction Age-related physical debility Hypertension Polyneuropathy PVD (peripheral vascular disease) Osteoporosis Hypothyroidism GERD (gastroesophageal reflux disease) Hypertensive heart and chronic kidney disease stage 3 Anxiety Asthma Sleep apnea COPD (chronic obstructive pulmonary disease) Gout CKD (chronic kidney disease) stage 3, GFR 30-59 ml/min Major depressive disorder CHF (congestive heart failure) Home Medications ?Medication ?Instructions ?Recorded ?Last Taken ?Type Lactobacillus-Bifidobacterium 30 1 cap PO DAILY Unknown History billion cell capsule,delayed release (Ultimate Harrison Probiotic) acetaminophen 325 mg capsule 650 mg PO BID pain Unknown History (Tylenol) azelastine 137 mcg (0.1 %) nasal 1 spray intranasal BI D nasal spray 10/30/22 Unknown History spray Held on 08/02/24. Instructions: Order Completed bupropion HCl 150 mg 24 hr tablet, 150 mg PO DAILY Unknown History extended release calcium carbonate (Calcium 500) 500 mg PO DAILY Unknown History dicyclomine 10 mg capsule 10 mg PO Q6H digestive issue s 10/30/22 Unknown History doxazosin 2 mg tablet (Cardura) 2 mg PO DAILY 10/30/22 10/30/22 History fluticasone propionate 50 1 spray intranasal DAILY Unknown History mcg/actuation nasal spray,suspension (24 Hour Allergy Relief) food supplemt, lactose-reduced 8 ml PO DAILY 10/30/22 Unknown History (Ensure oral liquid) gabapentin 600 mg tablet 600 mg PO BID 10/30/22 Unkno wn History inulin 2 gram chewable tablet 5 g PO DAILY 10/30/22 Un known History (Fiber Gummies) isosorbide mononitrate 30 mg 30 mg PO DAILY 10/30/22 U nknown History tablet,extended release 24 hr metoprolol tartrate 25 mg tablet 25 mg PO BID 10/30/22 Unknown History mirtazapine 30 mg tablet 30 mg PO QHS 10/30/22 Unknow n History montelukast 10 mg tablet 10 mg PO QHS 10/30/22 Unknow n History multivitamin (Daily Multi-Vitamin 1 tab PO DAILY 10/30 Unknown History tablet) pantoprazole 40 mg tablet,delayed 40 mg PO DAILY 10/30 Unknown History release potassium chloride 20 mEq 20 meq PO DAILY 10/30/22 Unk nown History tablet,extended release (K-Tab) atorvastatin 40 mg tablet 40 mg PO QHS 20 days #30 tab s 11/02/22 Unknown Rx atorvastatin 40 mg tablet 40 mg PO DAILY hyperlipidemi a 07/25/24 Unknown History azelastine 137 mcg (0.1 %) nasal intranasal allergies 07/25/24 Unknown History spray budesonide 0.5 mg/2 mL suspension mg scleroscope tester 07/25/24 Unkn own History for nebulization bupropion HCl 150 mg 24 hr tablet, 150 mg PO DAILY . 0 07/25/24 Unknown History extended release cetirizine 5 mg tablet 5 mg PO DAILY . 07/25/24 Unk nown History clopidogrel 75 mg tablet 75 mg PO DAILY . 07/25/24 Un known History Held on 07/28/24. Instructions: Hold while taking Eliquis for 1 month. dicyclomine 10 mg capsule 10 mg PO TID . 07/25/24 Unkn own History doxazosin 2 mg tablet 2 mg PO DAILY . 07/25/24 Unk nown History gabapentin 100 mg capsule PO . [...] . 07/25/24 U nknown History tablet,extended release(part/cryst) acetaminophen 500 mg tablet 1,000 mg (2 x 500 mg) PO Q 8 #0 tabs 07/28/24 Unknown Rx apixaban 5 mg tablet (Eliquis) 2.5 mg (1/2 x 5 mg) PO BID #0 tabs 07/28/24 Unknown Rx ascorbic acid (vitamin C) 500 mg 500 mg PO BID #60 tab s 07/28/24 Unknown Rx tablet calcium carbonate 500 mg (2.5 x 200 mg calcium (500 07/28/24 Unknown Rx mg)) PO TIDCM #0 tabs cholecalciferol (vitamin D3) 125 125 mcg PO DAILY #0 c aps 07/28/24 Unknown Rx mcg (5,000 unit) capsule ferrous sulfate 325 mg (65 mg 325 mg PO DAILY 30 days #30 tabs 07/28/24 Unknown Rx iron) tablet (FeroSul) furosemide 40 mg tablet 40 mg PO DAILY #0 tabs 07/28 Unknown Rx polyethylene glycol 3350 17 17 g PO BID 1 month #1,020 grams 07/28/24 Unknown Rx gram/dose oral powder (Miralax) sennosides 8.6 mg-docusate sodium 2 tab PO BID #0 tabs 07/28/24 Unknown Rx 50 mg tablet (Stimulant Laxative Plus) ascorbic acid (vitamin C) 500 mg 500 mg PO BID 5 Unknown History capsule budesonide 0.5 mg/2 mL suspension 0.5 mg inhalation BI D 08/02/24 Unknown History for nebulization cetirizine 5 mg tablet 5 mg PO DAILY 08/02/24 Unkno wn History cholecalciferol (vitamin D3) 125 125 mcg PO DAILY 07/11 06/03 Unknown History mcg (5,000 unit) tablet (Vitamin D3) clopidogrel 75 mg tablet 75 mg PO DAILY blood thinner 08/02/24 Unknown History ferrous sulfate 325 mg (65 mg 325 mg PO DAILY 08/02/24 Unknown History iron) tablet furosemide 40 mg tablet 40 mg PO DAILY fluid retenti on 08/02/24 Unknown History inulin-chromium picolinate 2 1 tab PO DAILY 08/02/24 U nknown History gram-100 mcg chewable tablet (Fiber Select Gummies) ipratropium 0.5 mg-albuterol 3 mg 3 ml inhalation BID 08/02/24 Unknown History (2.5 mg base)/3 mL nebulization soln polyethylene glycol 3350 17 17 g PO BID 08/02/24 Unkno wn History gram/dose oral powder (Miralax) sennosides 8.6 mg-docusate sodium 1 tab PO DAILY const ipation 08/02/24 Unknown History 50 mg tablet (Senexon-S) Allergy/AdvReac Type Severity Reaction Status Date / Time cephalexin Allergy PT UNSURE Verified 08/04/24 11:26 OF REACTION clarithromycin Allergy PT UNSURE Verified 08/04/24 11:26 OF REACTION clindamycin Allergy PT UNSURE Verified 08/04/24 11:26 OF REACTION doxazosin Allergy NEEDS Verified 08/04/24 11:26 FOLLOW-UP erythromycin base Allergy PT UNSURE Verified 08/04/24 11:26 OF REACTION eszopiclone Allergy PT UNSURE Verified 08/04/24 11:26 OF REACTION Fish Containing Products Allergy PT UNSURE Verified 08/04/24 11:26 (seafood) OF REACTION fish derived Allergy PT UNSURE Verified 08/04/24 11:26 OF REACTION lincomycin Allergy PT UNSURE Verified 08/04/24 11:26 OF REACTION lorazepam Allergy PT UNSURE Verified 08/04/24 11:26 OF REACTION mushroom (mushrooms) Allergy PT UNSURE Verified 08/04/24 11:26 OF REACTION NSAIDS (Non-Steroidal Allergy PT UNSURE Verified 08/04/24 11:26 Anti-Inflamma OF REACTION Penicillins Allergy PT UNSURE Verified 08/04/24 11:26 OF REACTION rofecoxib Allergy PT UNSURE Verified 08/04/24 11:26 OF REACTION salicylates Allergy PT UNSURE Verified 08/04/24 11:26 OF REACTION temazepam Allergy PT UNSURE Verified 08/04/24 11:26 OF REACTION Tetracyclines Allergy PT UNSURE Verified 08/04/24 11:26 OF REACTION trazodone Allergy PT UNSURE Verified 08/04/24 11:26 OF REACTION Surgical History (Updated 08/04/24 @ 11:26 by Steph Mccollum) Presence of aortocoronary bypass graft History of cataract surgery History of lysis of adhesions Hx of hysterectomy Hx of total knee replacement Presence of aortocoronary bypass graft Social History (System 08/04/24 @ 11:26 by Steph Mccollum) Smoking Status: Never smoker Review of Systems (Anesthesia) ROS Narrative System reviewed and no additional complaints, except as documented. Physical Exam Const Orientation / Consciousness: confused Neck full ROM Resp normal respiratory effort 08/04/24 1601 DIALYSIS NURSE> Date _ Jose Krueger DIALYSIS NURSE Cosigner Signature: Date CC: ~ Signed [facility]06-25-2025 Progress note Author Hayden Diaz [facility] Note Date/Time August 03, 2024 5:58 pm [facility] Medical Records Department [address] [place] [address] Progress Note - Hospitalist 08/03/24 1211 MR#: [id number] Acct: [id number] Name: KATHERINE JUDGE Rep #:[id number] : 1935 89 From: Hayden malik DO PCP: Dr. Kam Ocampo Sr., DO Status:A DM IN Location: [place] [address] Reason for Visit Reason for Visit: Diagnoses Anemia, unspecified (08/02/24) Gastrointestinal hemorrhage, unspecified (08/02/24) Altered mental status, unspecified (08/02/24) Subjective Subjective Saw patient at bedside this morning, son present. Patient was sitting back in bed and alert but was only oriented to person. She was making appropriate eye contact but did not answer any other questions appropriately for me. Told me that she was at school and could not tell me the month or year. Per the son, patient is typically alert and oriented x 3 at baseline and sharp mentally. Given patient is on Plavix and had acute on chronic anemia on admit, obtained CTbrain and this was negative for acute pathology. Patient also had recent right hip fracture with moderate tenderness to palpation on exam today so CT hip was obtained to rule out postoperative hematoma and it was negative. Patient received 2 units of blood overnight and repeat hemoglobin went from 7.3 to 9.6. No other acute concerns at this time. Objective Data Objective Data Vital Signs: Vital Signs Temp Pulse Resp BP Pulse Ox O2 Del Method O2 Flow Rate 98.2 F 90 14 134/76 H 95 Nasal Cannula 2 08/03/24 08:18 08/03/24 09:48 08/03/24 08:18 08/03/24 08:18 08/03/24 08:18 08/03/24 08:18 08/03/24 08:18 Oxygen Flow Rate (L/min) 2 Oxygen Delivery Method Nasal Cannula Weight: 1.52 kg Body Mass Index (BMI) 0.0 Intake & Output: Intake and Output for Last 24 Hours 08/01/24 08/02/24 08/03/24 23:59 23:59 23:59 Intake Total 100 / 100 600 / 600 Output Total 550 / 550 350 / 350 Balance -450 / -450 250 / 250 Lab / Micro Data 08/03/24 15:30 08/03/24 06:50 Labs: Laboratory Results - last 24 hr 08/02/24 12:32: Hgb 8.1 L, Hct 24.2 L, Ammonia 30.4, Vitamin B12 1365 H, Serum Folate 35.60 H 08/02/24 13:55: WBC 7.7, RBC 2.11 L, Hgb 7.3 L, Hct 21.3 L, MCV 100.9 H, MCH 34.6 H, MCHC 34.3, RDW Std Deviation 50.4 H, RDW Coeff of Tamera 15.9 H, Plt Count 263, MPV 8.9, Immature Gran % (Auto) 0.500, Neut % (Auto) 70.8 H, Lymph % (Auto)19.7, [place] % (Auto) 7.2, Eos % (Auto) 1.4, Baso % (Auto) 0.4, Absolute Neuts (auto) 5.4, Absolute Lymphs (auto) 1.51, Nucleated RBC % 0, Sodium 141, Potassium 3.6, Chloride 98, Carbon Dioxide 34.9 H, Anion Gap 8, BUN 18, Creatinine 0.83, Estim Creat Clear Calc 33.65 L, Est GFR (MDRD) Non-Af 68, BUN/Creatinine Ratio 21.5 H, Glucose 114 H, Calcium 9.7, Total Bilirubin 0.80, AST 36 H, ALT 25, Alkaline Phosphatase 75, Total Protein 5.8 L, Albumin 3.0 L, Globulin 2.8, Albumin/Globulin Ratio 1.1, Lipase 21, Blood Type O POSITIVE, Antibody Screen POSITIVE H, Antibody Identification ANTI-M 08/02/24 13:55: Antibody Identification ANTI-M, Antigen Identification M ANTIGEN- NEGATIVE, Crossmatch See Detail 08/02/24 14:55: Urine Color Straw, Urine Clarity Clear, Urine pH 7.0, Ur Specific [place] 1.010, Urine Protein Negative, Urine Glucose (UA) Normal, UrineKetones Negative, Urine Occult Blood Negative, Urine Nitrite Negative, Urine Bilirubin Negative, Urine Urobilinogen Normal, Ur Leukocyte Esterase Negative, Urine RBC 0-5 SEEN, Urine WBC 0-5 SEEN, Ur Squamous Epith Cells 0-5 SEEN, Urine Bacteria 0 SEEN, Urine Mucus 0 SEEN 08/03/24 01:55: Hgb 9.6 L, Hct 28.3 L 08/03/24 06:50: WBC 7.3, RBC 2.91 L, Hgb 9.6 L, Hct 27.9 L, MCV 95.9, MCH 33.0 H, MCHC 34.4, RDW Std Deviation 48.7 H, RDW Coeff of Tamera 15.8 H, Plt Count 239, MPV 8.9, Immature Gran % (Auto) 0.700, Neut % (Auto) 66.5, Lymph % (Auto) 23.1, [place] % (Auto) 8.1, Eos % (Auto) 1.1, Baso % (Auto) 0.5, Absolute Neuts (auto) 4.9, Absolute Lymphs (auto) 1.69, Nucleated RBC % 0, PT 14.6, INR 1.1, Sodium 140, Potassium 3.4, Chloride 99, Carbon Dioxide 31.1, Anion Gap 11, BUN 17, Creatinine 0.86, Estim Creat Clear Calc 1.09 L*, Est GFR (MDRD) Non-Af 65, BUN/Creatinine Ratio 19.8, Glucose 94, Calcium 9.5 08/03/24 10:31: POC Glucose 106 Micro: Microbiology 08/02/24 15:45 Stool Stool Occult Blood (AYAH) - Final Occult Blood Positive Radiography Diagnostic Testing: Radiology Impression Abdomen/Pelvis CT 08/02/24 14:09 IMPRESSION: 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 Distended urinary bladder. Minimal intrahepatic biliary ductal dilatation. Reading Location: [facility] Brain CT 08/03/24 11:10 IMPRESSION: NO ACUTE INTRACRANIAL HEMORRHAGE Chronic changes. Reading Location: [id number] Pelvis CT 08/03/24 11:10 IMPRESSION: Status post right intertrochanteric fracture reduction with compression screw and kaleb fixation device. Postoperative soft tissue changes. No evidence of localized hematoma. Reading Location: [facility] Physical Exam Const alert, no apparent distress and average body habitus Constitutional Narrative: Elderly female, mildly fatigued appearing, sitting back in bed and making appropriate eye contact but only alert and oriented x 1 to person, not answeringany other questions appropriately, otherwise in no acute distress. General Appearance: cooperative and comfortable HEENT normocephalic, [...] palpation,non-tender and non-distended Back/Spine normal ROM Extremity Extremity Narrative: Right hip with moderate tenderness to palpation but no significant bruising noted. Right leg with decreased range of motion. Skin no rashes or lesions noted Assessment & Plan Assessment/Plan (1) Anemia: (2) Altered mental status: PLAN: Plan Patient is an 89-year-old female who presented to [facility] ED on 08/02/2024 with altered mentation and low hemoglobin. 1. Acute on chronic anemia with concern for upper GI bleed, history of gastric pull-through procedure ? GI following. Hemoglobin 7.0 on admit. Had hemoglobin reading of 6.2 in chart but on redraw was 7.0. Hemoccult positive in the ED so there was concern for upper GI bleed. Notably hemoglobin dropped from 10.5 to 7.3 during recent hospitalization after right hip procedure noted below, so hemoglobin on admission was similar to previous. CT brain negative for bleed. CT hip with noconcern for postoperative hematoma. Given 2 units of packed red blood cells with hemoglobin improvement to 9.6. Discussed with GI and does given history ofgastric pull-through procedure, there is concern that she could have a slow upper GI bleed. Continue IV PPI twice daily for now. N.p.o. at midnight with plan for EGD tomorrow. 2. Acute metabolic encephalopathy ? Patient alert and oriented x 1 to person only on admit. Per family, is typically alert and oriented x 3 and mentally sharp. Unclear etiology for encephalopathy at this time. CT brain negative. Infectious workup negative to this point and patient noninfectious appearing. Continue to monitor and avoid sedating medications as able. 3. Recent right hip fracture s/p cephalomedullary nail placement with acute on chronic debility ? PT/OT/case management following. Recently hospitalized here from 07/25 to 07/29for fall with right hip fracture. S/p right femur cephalomedullary nail placement on 07/26. Patient discharged to [facility] and suspect she will need SNF placement again on this discharge. Appreciate therapy recommendations. 4. Chronic HFpEF, history of CAD with stenting, hypertension, hyperlipidemia, history of CVA, chronic hypoxic respiratory failure ? Hemodynamically stable on 2 L on admit. Was recently discharged on 2 L nasal cannula. Last echo in 2022 showed EF 70%, LA enlargement but no diastolic dysfunction, no valvular issues. Continue home statin, Lasix, doxazosin, Imdur,and Lopressor. Holding home Plavix as above. 5. Concern for urinary retention ? Patient with significant distended urinary bladder on CT on admit. However, has voided without issue since admission with postvoid residuals that are negligible. Continue doxazosin as above. 6. Anxiety/depression ? Stable. Continue home bupropion and mirtazapine. 7. GERD ? Continue home PPI. DVT prophylaxis: SCDs CODE STATUS: DNR CCA, DNI Expected disposition: Likely back to longterm, TBD Total clinical time spent by myself addressing the patient's medical issues, reviewing all the data, and collaborating with patient's care team: 35 minutes. Charges/Coding Visit Charges Inpatient E&M: 18043 Subs Hosp L2 08/03/24 3223 <Electronically signed by Hayden Diaz DO> Cosigner Signature (if applicable): CC: ~ Signed [facility] Work Phone: [phone] Consult note Author Nomi Kee [facility] Note Date/Time August 03, 2024 3:59 pm [facility] Medical Records Department [address] [place] [address] Consultation - GI 08/03/24 1537 MR#: [id number] Acct: [id number] Name: KATHERINE JUDGE Rep #:[id number] : 1935 89 From: Nomi Kee DO PCP: Dr. Kam Ocampo Sr., DO Status:A DM IN Location: [facility] [place] [id number] HPI Consult Data Date of Consult: 08/03/24 HPI Narrative Reason for Consultation: Anemia HPI Narrative: KATHERINE JUDGE, is a 89 F who [id number] female with past medical history of TIA/CVA. She was admitted in 2022 for altered mental status. She received tenecteplase. She also has a history, hypertension, hypertension who presented to the emergency department with concern for low hemoglobin. She had a hip replacement done on the right side about a week ago and had been doing well. She has a chronic iron deficiency. Her hemoglobin was 10.2 and deccreased to 6mg/dl. Therefore, I consult as well and had given her iron replacement while in the hospital last time. 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 Distended urinary bladder. Minimal intrahepatic biliary ductal dilatation. [facility] Medical History TIA (transient ischemic attack) Personal history of other diseases of digestive system Noninfective gastroenteritis and colitis, unspecified Essential hypertension Diaphragmatic hernia without obstruction or gangrene Constipation, unspecified Atherosclerotic heart disease of [place] coronary artery without angina pectoris Other specified disorders of white blood cells Other lack of coordination Hyperthyroidism Gout, unspecified Difficulty in walking, not elsewhere classified Depression, unspecified Calculus of gallbladder and bile duct without cholecystitis without obstruction Age-related physical debility Hypertension Home Medications ?Medication ?Instructions ?Recorded ?Last Taken ?Type Lactobacillus-Bifidobacterium 30 1 cap PO DAILY Unknown History billion cell capsule,delayed release (Ultimate Harrison Probiotic) acetaminophen 325 mg capsule 650 mg PO BID pain Unknown History (Tylenol) azelastine 137 mcg (0.1 %) nasal 1 spray intranasal BI D nasal spray 10/30/22 Unknown History spray Held on 08/02/24. Instructions: Order Completed bupropion HCl 150 mg 24 hr tablet, 150 mg PO DAILY Unknown History extended release calcium carbonate (Calcium 500) 500 mg PO DAILY Unknown History dicyclomine 10 mg capsule 10 mg PO Q6H digestive issue s 10/30/22 Unknown History doxazosin 2 mg tablet (Cardura) 2 mg PO DAILY 10/30/22 10/30/22 History fluticasone propionate 50 1 spray intranasal DAILY Unknown History mcg/actuation nasal spray,suspension (24 Hour Allergy Relief) food supplemt, lactose-reduced 8 ml PO DAILY 10/30/22 Unknown History (Ensure oral liquid) gabapentin 600 mg tablet 600 mg PO BID 10/30/22 Unkno wn History inulin 2 gram chewable tablet 5 g PO DAILY 10/30/22 Un known History (Fiber Gummies) isosorbide mononitrate 30 mg 30 mg PO DAILY 10/30/22 U nknown History tablet,extended release 24 hr metoprolol tartrate 25 mg tablet 25 mg PO BID 10/30/22 Unknown History mirtazapine 30 mg tablet 30 mg PO QHS 10/30/22 Unknow n History montelukast 10 mg tablet 10 mg PO QHS 10/30/22 Unknow n History multivitamin (Daily Multi-Vitamin 1 tab PO DAILY 10/30 Unknown History tablet) pantoprazole 40 mg tablet,delayed 40 mg PO DAILY 10/30 Unknown History release potassium chloride 20 mEq 20 meq PO DAILY 10/30/22 Unk nown History tablet,extended release (K-Tab) atorvastatin 40 mg tablet 40 mg PO QHS 20 days #30 tab s 11/02/22 Unknown Rx ascorbic acid (vitamin C) 500 mg 500 mg PO BID 5 Unknown History capsule budesonide 0.5 mg/2 mL suspension 0.5 mg inhalation BI D 08/02/24 Unknown History for nebulization cetirizine 5 mg tablet 5 mg PO DAILY 08/02/24 Unkno wn History cholecalciferol (vitamin D3) 125 125 mcg PO DAILY 07/11 06/03 Unknown History mcg (5,000 unit) tablet (Vitamin D3) clopidogrel 75 mg tablet 75 mg PO DAILY blood thinner 08/02/24 Unknown History ferrous sulfate 325 mg (65 mg 325 mg PO DAILY 08/02/24 Unknown History iron) tablet furosemide 40 mg tablet 40 mg PO DAILY fluid retenti on 08/02/24 Unknown History inulin-chromium picolinate 2 1 tab PO DAILY 08/02/24 U nknown History gram-100 mcg chewable tablet (Fiber Select Gummies) ipratropium 0.5 mg-albuterol 3 mg 3 ml inhalation BID 08/02/24 Unknown History (2.5 mg base)/3 mL nebulization soln polyethylene glycol 3350 17 17 g PO BID 08/02/24 Unkno wn History gram/dose oral powder (Miralax) sennosides 8.6 mg-docusate sodium 1 tab PO DAILY const ipation 08/02/24 Unknown History 50 mg tablet (Senexon-S) Allergy/AdvReac Type Severity Reaction Status Date / Time cephalexin Allergy NEEDS Verified 08/02/24 16:18 FOLLOW-UP clarithromycin Allergy NEEDS Verified 08/02/24 16:18 FOLLOW-UP clindamycin Allergy NEEDS Verified 08/02/24 16:18 FOLLOW-UP doxazosin Allergy NEEDS Verified 11/06/22 16:25 FOLLOW-UP erythromycin base Allergy NEEDS Verified 08/02/24 16:18 FOLLOW-UP eszopiclone Allergy NEEDS Verified 08/02/24 16:18 FOLLOW-UP Fish Containing Products Allergy NEEDS Verified 08/02/24 16:18 FOLLOW-UP fish derived Allergy NEEDS Verified 08/02/24 16:18 FOLLOW-UP lincomycin Allergy NEEDS Verified 08/02/24 16:18 FOLLOW-UP lorazepam Allergy NEEDS Verified 08/02/24 16:18 FOLLOW-UP NSAIDS (Non-Steroidal Allergy NEEDS Verified 08/02/24 16:18 Anti-Inflamma FOLLOW-UP Penicillins Allergy NEEDS Verified 08/02/24 16:18 FOLLOW-UP rofecoxib Allergy NEEDS Verified 08/02/24 16:18 FOLLOW-UP salicylates Allergy NEEDS Verified 08/02/24 16:18 FOLLOW-UP temazepam Allergy NEEDS Verified 08/02/24 16:18 FOLLOW-UP Tetracyclines Allergy NEEDS Verified 08/02/24 16:18 FOLLOW-UP trazodone Allergy NEEDS Verified 08/02/24 16:18 FOLLOW-UP mushroom (mushrooms) AdvReac Food Unverified 08/02/24 16:18 Allergy Surgical History Presence of aortocoronary bypass graft Social History Smoking Status: Never smoker ROS Constitutional Constitutional: Denies fatigue, fever(s), poor appetite, weight gain or weight loss Gastrointestinal Gastrointestinal: Denies belching, bloating, change in bowel habits, change in stool character, chewing difficulty, coffee ground emesis, constipation, cramping, diarrhea, dyspepsia, dysphagia, early satiety, excessive flatus, fecalincontinence, heartburn, hematemesis, hematochezia, hemorrhoids, loose stools, melena, nausea, odynophagia, rectal bleeding, tenesmus, vomiting or weight changes Physical Exam Const alert, oriented x3, no apparent distress and healthy appearing General Appearance: cooperative GI normal to inspection, nondistended, normoactive bowel sounds, soft to palpation,non-tender and non-distended Percussion: normal to percussion Rectal Exam: deferred Lab / Micro Data 08/03/24 06:50 08/03/24 06:50 Labs: Laboratory Results - last 24 hr 08/02/24 12:32: Hgb 8.1 L, Hct 24.2 L, Ammonia 30.4, Vitamin B12 1365 H, Serum Folate 35.60 H 08/02/24 13:55: Blood Type O POSITIVE, Antibody Screen POSITIVE H, Antibody Identification ANTI-M 08/02/24 13:55: Antibody Identification ANTI-M, Antigen Identification M ANTIGEN- NEGATIVE, Crossmatch See Detail 08/02/24 14:55: Urine RBC 0-5 SEEN, Urine WBC 0-5 SEEN, Ur Squamous Epith Cells 0-5 SEEN, Urine Bacteria 0 SEEN, Urine Mucus 0 SEEN 08/03/24 01:55: Hgb 9.6 L, Hct 28.3 L 08/03/24 06:50: WBC 7.3, RBC 2.91 L, Hgb 9.6 L, Hct 27.9 L, MCV 95.9, MCH 33.0 H, MCHC 34.4, RDW Std Deviation 48.7 H, RDW Coeff of Tamera 15.8 H, Plt Count 239, MPV 8.9, Immature Gran % (Auto) 0.700, Neut % (Auto) 66.5, Lymph % (Auto) 23.1, [place] % (Auto) 8.1, Eos % (Auto) 1.1, Baso % (Auto) 0.5, Absolute Neuts (auto) 4.9, Absolute Lymphs (auto) 1.69, Nucleated RBC % 0, PT 14.6, INR 1.1, Sodium 140, Potassium 3.4, Chloride 99, Carbon Dioxide 31.1, Anion Gap 11, BUN 17, Creatinine 0.86, Estim Creat Clear Calc 1.09 L*, Est GFR (MDRD) Non-Af 65, BUN/Creatinine Ratio 19.8, Glucose 94, Calcium 9.5 08/03/24 10:31: POC Glucose 106 Micro: Microbiology 08/02/24 15:45 Stool Stool Occult Blood (AYAH) - Final Occult Blood Positive Imaging Radiology Impression Brain CT 08/03/24 11:10 IMPRESSION: NO ACUTE INTRACRANIAL HEMORRHAGE Chronic changes. Reading Location: [facility] Pelvis CT 08/03/24 11:10 IMPRESSION: Status post right intertrochanteric fracture reduction with compression screw and kaleb fixation device. Postoperative soft tissue changes. No evidence of localized hematoma. Reading Location: [id number] Assessment & Plan Assessment/Plan (1) Anemia: (2) GI bleed: PLAN: 89-year-old with past medical history of coronary artery disease status post CABG on Plavix, iron deficiency anemia on iron, acute CVA status post tPA treatment arrives with decrease in hemoglobin. Apparently she had some type of surgery on her upper GI tract requiring a gastric pull-through. Her hemoglobin went down to 4 grams and came back up after transfusion. This is the reason whykeyshae came in the hospital initially due to decrease in hemoglobin. I think she should at least have an upper endoscopy to evaluate upper GI tract for signs of acute on chronic GI blood loss in the setting of iron deficiency anemia in a patient on iron therapy. Currently at this time she has been worked up for altered mental status by primary team. When patient is medically stable we can pursue endoscopy. Charges/Coding Visit Charges Inpatient E&M: 20458 Init Hosp L3 08/03/24 5276 <Electronically signed by Nomi Kee DO> Cosigner Signature (if applicable): CC: Dr. Kam Ocampo Sr., DO; Dr. Janine Harrison MD~ Signed [facility] Work Phone: [phone]) 758-939906-25-2025 Progress note [facility] Medical Records Department [address] [place] [address] Progress Note - Hospitalist 08/03/24 1211 MR#: [id number] Acct: [id number] Name: KATHERINE JUDGE Rep #:[id number] : 1935 89 From: Hayden malik DO PCP: Dr. Kam Ocampo Sr., Status:A DM IN Location: [place] [address] Reason for Visit Reason for Visit: Diagnoses Anemia, unspecified (08/02/24) Gastrointestinal hemorrhage, unspecified (08/02/24) Altered mental status, unspecified (08/02/24) Subjective Subjective Saw patient at bedside this morning, son present. Patient was sitting back in bed and alert but wasonly oriented to person. She was making appropriate eye contact but did not answer any other questions appropriately for me. Told me that she was at school and could not tell me the month or year. Per the son, patient is typically alert and oriented x 3 at baseline and sharp mentally. Given patientis on Plavix and had acute on chronic anemia on admit, obtained CTbrain and this was negative for acute pathology. Patient also had recent right hip fracture with moderate tenderness to palpation on exam today so CT hip was obtained to rule out postoperative hematoma and it was negative. Patient rec eived 2 units of blood overnight and repeat hemoglobin went from 7.3 to 9.6. No other acute concerns at this time. Objective Data Objective Data Vital Signs: Vital Signs Temp Pulse Resp BP Pulse Ox O2 Del Method O2 Flow Rate 98.2 F 90 14 134/76 H 95 Nasal Cannula 2 08/03/24 08:18 08/03/24 09:48 08/03/24 08:18 08/03/24 08:18 08/03/24 08:18 08/03/24 08:18 08/03/24 08:18 Oxygen Flow Rate (L/min) 2 Oxygen Delivery Method Nasal Cannula Weight: 1.52 kg Body Mass Index (BMI) 0.0 Intake & Output: Intake and Output for Last 24 Hours 08/01/24 08/02/24 08/03/24 23:59 23:59 23:59 Intake Total 100 / 100 600 / 600 Output Total 550 / 550 350 / 350 Balance -450 / -450 250 / 250 Lab / Micro Data 08/03/24 15:30 08/03/24 06:50 Labs: Laboratory Results - last 24 hr 08/02/24 12:32: Hgb 8.1 L, Hct 24.2 L, Ammonia 30.4, Vitamin B12 1365 H, Serum Folate 35.60 H 08/02/24 13:55: WBC 7.7, RBC 2.11 L, Hgb 7.3 L, Hct 21.3 L, MCV 100.9 H, MCH 34.6 H, MCHC 34.3, RDWStd Deviation 50.4 H, RDW Coeff of Tamera 15.9 H, Plt Count 263, MPV 8.9, Immature Gran % (Auto) 0.500, Neut % (Auto) 70.8 H, Lymph % (Auto)19.7, [place] % (Auto) 7.2, Eos % (Auto) 1.4, Baso % (Auto) 0.4, Absolute Neuts (auto) 5.4, Absolute Lymphs (auto) 1.51, Nucleated RBC % 0, Sodium 141, Potassium 3.6, Chloride 98, Carbon Dioxide 34.9 H, Anion Gap 8, BUN 18, Creatinine 0.83, Estim Creat Clear Calc 33.65 L, Est GFR (MDRD) Non-Af 68, BUN/Creatinine Ratio 21.5 H, Glucose 114 H, Calcium 9.7, Total Bilirubin 0.80, AST 36 H, ALT 25, Alkaline Phosphatase 75, Total Protein 5.8 L, Albumin 3.0 L, Globulin2.8, Albumin/Globulin Ratio 1.1, Lipase 21, Blood Type O POSITIVE, Antibody Screen POSITIVE H, Antibody Identification ANTI-M 08/02/24 13:55: Antibody Identification ANTI-M, Antigen Identification M ANTIGEN- NEGATIVE, Crossmatch See Detail 08/02/24 14:55: Urine Color Straw, Urine Clarity Clear, Urine pH 7.0, Ur Specific [place] 1.010, Urine Protein Negative, Urine Glucose (UA) Normal, UrineKetones Negative, Urine Occult Blood Negative,Urine Nitrite Negative, Urine Bilirubin Negative, Urine Urobilinogen Normal, Ur Leukocyte Esterase Negative, Urine RBC 0-5 SEEN, Urine WBC 0-5 SEEN, Ur Squamous Epith Cells 0-5 SEEN, Urine Bacteria 0SEEN, Urine Mucus 0 SEEN 08/03/24 01:55: Hgb 9.6 L, Hct 28.3 L 08/03/24 06:50: WBC 7.3, RBC 2.91 L, Hgb 9.6 L, Hct 27.9 L, MCV 95.9, MCH 33.0 H, MCHC 34.4, RDW Std Deviation 48.7 H, RDW Coeff of Tamera 15.8 H, Plt Count 239, MPV 8.9, Immature Gran % (Auto) 0.700, Neut % (Auto) 66.5, Lymph % (Auto) 23.1, [place] % (Auto) 8.1, Eos % (Auto) 1.1, Baso % (Auto) 0.5, Absolute Neuts (auto) 4.9, Absolute Lymphs (auto) 1.69, Nucleated RBC % 0, PT 14.6, INR 1.1, Sodium 140,Potassium 3.4, Chloride 99, Carbon Dioxide 31.1, Anion Gap 11, BUN 17, Creatinine 0.86, Estim CreatClear Calc 1.09 L*, Est GFR (MDRD) Non-Af 65, BUN/Creatinine Ratio 19.8, Glucose 94, Calcium 9.5 08/03/24 10:31: POC Glucose 106 Micro: Microbiology 08/02/24 15:45 Stool Stool Occult Blood (AYAH) - Final Occult Blood Positive Radiography Diagnostic Testing: Radiology Impression Abdomen/Pelvis CT 08/02/24 14:09 IMPRESSION: 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 Distended urinary bladder. Minimal intrahepatic biliary ductal dilatation. Reading Location: [facility] Brain CT 08/03/24 11:10 IMPRESSION: NO ACUTE INTRACRANIAL HEMORRHAGE Chronic changes. Reading Location: [facility] Pelvis CT 08/03/24 11:10 IMPRESSION: Status post right intertrochanteric fracture reduction with compression screw and kaleb fixation device. Postoperative soft tissue changes. No evidence of localized hematoma. Reading Location: [id number] Physical Exam Const alert, no apparent distress and average body habitus Constitutional Narrative: Elderly female, mildly fatigued appearing, sitting back in bed and making appropriate eye contact but only alert and oriented x 1 to person, not answeringany other questions appropriately, otherwise in no acute distress. General Appearance: cooperative and comfortable HEENT normocephalic, [...] palpation,non-tender and non-distended Back/Spine normal ROM Extremity Extremity Narrative: Right hip with moderate tenderness to palpation but no significant bruising noted. Right leg with decreased range of motion. Skin no rashes or lesions noted Assessment & Plan Assessment/Plan (1) Anemia: (2) Altered mental status: PLAN: Plan Patient is an 89-year-old female who presented to [facility] ED on 08/02/2024 with altered mentation and low hemoglobin. 1. Acute on chronic anemia with concern for upper GI bleed, history of gastric pull-through procedure ? GI following. Hemoglobin 7.0 on admit. Had hemoglobin reading of 6.2 in chart but on redraw was 7.0. Hemoccult positive in the ED so there was concern for upper GI bleed. Notably hemoglobin droppedfrom 10.5 to 7.3 during recent hospitalization after right hip procedure noted below, so hemoglobinon admission was similar to previous. CT brain negative for bleed. CT hip with noconcern for postoperative hematoma. Given 2 units of packed red blood cells with hemoglobin improvement to 9.6. Discussed with GI and does given history ofgastric pull- through procedure, there is concern that she couldhave a slow upper GI bleed. Continue IV PPI twice daily for now. N.p.o. at midnight with plan for EGD tomorrow. 2. Acute metabolic encephalopathy ? Patient alert and oriented x 1 to person only on admit. Per family, is typically alert and oriented x 3 and mentally sharp. Unclear etiology for encephalopathy at this time. CT brain negative. Infectious workup negative to this point and patient noninfectious appearing. Continue to monitor and avoid sedating medications as able. 3. Recent right hip fracture s/p cephalomedullary nail placement with acute on chronic debility ? PT/OT/case management following. Recently hospitalized here from 07/25 to 07/29for fall with right hip fracture. S/p right femur cephalomedullary nail placement on 07/26. Patient discharged to [facility] home and suspect she will need SNF placement again on this discharge. Appreciate therapy recommendations. 4. Chronic HFpEF, history of CAD with stenting, hypertension, hyperlipidemia, history of CVA, chronic hypoxic respiratory failure ? Hemodynamically stable on 2 L on admit. Was recently discharged on 2 L nasal cannula. Last echo in 2022 showed EF 70%, LA enlargement but no diastolic dysfunction, no valvular issues. Continue homestatin, Lasix, doxazosin, Imdur,and Lopressor. Holding home Plavix as above. 5. Concern for urinary retention ? Patient with significant distended urinary bladder on CT on admit. However, has voided without issue since admission with postvoid residuals that are negligible. Continue doxazosin as above. 6. Anxiety/depression ? Stable. Continue home bupropion and mirtazapine. 7. GERD ? Continue home PPI. DVT prophylaxis: SCDs CODE STATUS: DNR CCA, DNI Expected disposition: Likely back to longterm, TBD Total clinical time spent by myself addressing the patient's medical issues, reviewing all the data, and collaborating with patient's care team: 35 minutes. Charges/Coding Visit Charges Inpatient E&M: 79456 Subs Hosp L2 08/03/24 0568 Cosigner Signature (if applicable): CC: ~ Signed [facility]06-25-2025 Consult note [facility] Medical Records Department [address] [place] [address] Consultation - GI 08/03/24 1537 MR#: [id number] Acct: [id number] Name: KATHERINE JUDGE Rep #:[id number] : 1935 89 From: Nomi Kee DO PCP: Dr. Kam Ocampo Sr., DO Status:A DM IN Location: [facility] [place] [facility] HPI Consult Data Date of Consult: 08/03/24 HPI Narrative Reason for Consultation: Anemia HPI Narrative: KATHERINE JUDGE, is a 89 F who [id number] female with past medical history of TIA/CVA. She was admitted in 2022 for altered mental status. She received tenecteplase. She also has a history, hypertension, hypertension who presented to the emergency department with concern for low hemoglobin. She had a hip replacement done on the right side about a week ago and had been doing well. She has achronic iron deficiency. Her hemoglobin was 10.2 and deccreased to 6mg/dl. Therefore, I consult as well and had given her iron replacement while in the hospital last time. 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 Distended urinary bladder. Minimal intrahepatic biliary ductal dilatation. [facility] Medical History TIA (transient ischemic attack) Personal history of other diseases of digestive system Noninfective gastroenteritis and colitis, unspecified Essential hypertension Diaphragmatic hernia without obstruction or gangrene Constipation, unspecified Atherosclerotic heart disease of [place] coronary artery without angina pectoris Other specified disorders of white blood cells Other lack of coordination Hyperthyroidism Gout, unspecified Difficulty in walking, not elsewhere classified Depression, unspecified Calculus of gallbladder and bile duct without cholecystitis without obstruction Age-related physical debility Hypertension Home Medications ?Medication ?Instructions ?Recorded ?Last Taken ?Type Lactobacillus-Bifidobacterium 30 1 cap PO DAILY Unknown History billion cell capsule,delayed release (Ultimate Harrison Probiotic) acetaminophen 325 mg capsule 650 mg PO BID pain Unknown History (Tylenol) azelastine 137 mcg (0.1 %) nasal 1 spray intranasal BI D nasal spray 10/30/22 Unknown History spray Held on 08/02/24. Instructions: Order Completed bupropion HCl 150 mg 24 hr tablet, 150 mg PO DAILY Unknown History extended release calcium carbonate (Calcium 500) 500 mg PO DAILY Unknown History dicyclomine 10 mg capsule 10 mg PO Q6H digestive issue s 10/30/22 Unknown History doxazosin 2 mg tablet (Cardura) 2 mg PO DAILY 10/30/22 10/30/22 History fluticasone propionate 50 1 spray intranasal DAILY Unknown History mcg/actuation nasal spray,suspension (24 Hour Allergy Relief) food supplemt, lactose-reduced 8 ml PO DAILY 10/30/22 Unknown History (Ensure oral liquid) gabapentin 600 mg tablet 600 mg PO BID 10/30/22 Unkno wn History inulin 2 gram chewable tablet 5 g PO DAILY 10/30/22 Un known History (Fiber Gummies) isosorbide mononitrate 30 mg 30 mg PO DAILY 10/30/22 U nknown History tablet,extended release 24 hr metoprolol tartrate 25 mg tablet 25 mg PO BID 10/30/22 Unknown History mirtazapine 30 mg tablet 30 mg PO QHS 10/30/22 Unknow n History montelukast 10 mg tablet 10 mg PO QHS 10/30/22 Unknow n History multivitamin (Daily Multi-Vitamin 1 tab PO DAILY 10/30 Unknown History tablet) pantoprazole 40 mg tablet,delayed 40 mg PO DAILY 10/30 Unknown History release potassium chloride 20 mEq 20 meq PO DAILY 10/30/22 Unk nown History tablet,extended release (K-Tab) atorvastatin 40 mg tablet 40 mg PO QHS 20 days #30 tab s 11/02/22 Unknown Rx ascorbic acid (vitamin C) 500 mg 500 mg PO BID 5 Unknown History capsule budesonide 0.5 mg/2 mL suspension 0.5 mg inhalation BI D 08/02/24 Unknown History for nebulization cetirizine 5 mg tablet 5 mg PO DAILY 08/02/24 Unkno wn History cholecalciferol (vitamin D3) 125 125 mcg PO DAILY 07/11 06/03 Unknown History mcg (5,000 unit) tablet (Vitamin D3) clopidogrel 75 mg tablet 75 mg PO DAILY blood thinner 08/02/24 Unknown History ferrous sulfate 325 mg (65 mg 325 mg PO DAILY 08/02/24 Unknown History iron) tablet furosemide 40 mg tablet 40 mg PO DAILY fluid retenti on 08/02/24 Unknown History inulin-chromium picolinate 2 1 tab PO DAILY 08/02/24 U nknown History gram-100 mcg chewable tablet (Fiber Select Gummies) ipratropium 0.5 mg-albuterol 3 mg 3 ml inhalation BID 08/02/24 Unknown History (2.5 mg base)/3 mL nebulization soln polyethylene glycol 3350 17 17 g PO BID 08/02/24 Unkno wn History gram/dose oral powder (Miralax) sennosides 8.6 mg-docusate sodium 1 tab PO DAILY const ipation 08/02/24 Unknown History 50 mg tablet (Senexon-S) Allergy/AdvReac Type Severity Reaction Status Date / Time cephalexin Allergy NEEDS Verified 08/02/24 16:18 FOLLOW-UP clarithromycin Allergy NEEDS Verified 08/02/24 16:18 FOLLOW-UP clindamycin Allergy NEEDS Verified 08/02/24 16:18 FOLLOW-UP doxazosin Allergy NEEDS Verified 11/06/22 16:25 FOLLOW-UP erythromycin base Allergy NEEDS Verified 08/02/24 16:18 FOLLOW-UP eszopiclone Allergy NEEDS Verified 08/02/24 16:18 FOLLOW-UP Fish Containing Products Allergy NEEDS Verified 08/02/24 16:18 FOLLOW-UP fish derived Allergy NEEDS Verified 08/02/24 16:18 FOLLOW-UP lincomycin Allergy NEEDS Verified 08/02/24 16:18 FOLLOW-UP lorazepam Allergy NEEDS Verified 08/02/24 16:18 FOLLOW-UP NSAIDS (Non-Steroidal Allergy NEEDS Verified 08/02/24 16:18 Anti-Inflamma FOLLOW-UP Penicillins Allergy NEEDS Verified 08/02/24 16:18 FOLLOW-UP rofecoxib Allergy NEEDS Verified 08/02/24 16:18 FOLLOW-UP salicylates Allergy NEEDS Verified 08/02/24 16:18 FOLLOW-UP temazepam Allergy NEEDS Verified 08/02/24 16:18 FOLLOW-UP Tetracyclines Allergy NEEDS Verified 08/02/24 16:18 FOLLOW-UP trazodone Allergy NEEDS Verified 08/02/24 16:18 FOLLOW-UP mushroom (mushrooms) AdvReac Food Unverified 08/02/24 16:18 Allergy Surgical History Presence of aortocoronary bypass graft Social History Smoking Status: Never smoker ROS Constitutional Constitutional: Denies fatigue, fever(s), poor appetite, weight gain or weight loss Gastrointestinal Gastrointestinal: Denies belching, bloating, change in bowel habits, change in stool character, chewing difficulty, coffee ground emesis, constipation, cramping, diarrhea, dyspepsia, dysphagia, earlysatiety, excessive flatus, fecalincontinence, heartburn, hematemesis, hematochezia, hemorrhoids, loose stools, melena, nausea, odynophagia, rectal bleeding, tenesmus, vomiting or weight changes Physical Exam Const alert, oriented x3, no apparent distress and healthy appearing General Appearance: cooperative GI normal to inspection, nondistended, normoactive bowel sounds, soft to palpation,non-tender and non-distended Percussion: normal to percussion Rectal Exam: deferred Lab / Micro Data 08/03/24 06:50 08/03/24 06:50 Labs: Laboratory Results - last 24 hr 08/02/24 12:32: Hgb 8.1 L, Hct 24.2 L, Ammonia 30.4, Vitamin B12 1365 H, Serum Folate 35.60 H 08/02/24 13:55: Blood Type O POSITIVE, Antibody Screen POSITIVE H, Antibody Identification ANTI-M 08/02/24 13:55: Antibody Identification ANTI-M, Antigen Identification M ANTIGEN- NEGATIVE, Crossmatch See Detail 08/02/24 14:55: Urine RBC 0-5 SEEN, Urine WBC 0-5 SEEN, Ur Squamous Epith Cells 0-5 SEEN, Urine Bacteria 0 SEEN, Urine Mucus 0 SEEN 08/03/24 01:55: Hgb 9.6 L, Hct 28.3 L 08/03/24 06:50: WBC 7.3, RBC 2.91 L, Hgb 9.6 L, Hct 27.9 L, MCV 95.9, MCH 33.0 H, MCHC 34.4, RDW Std Deviation 48.7 H, RDW Coeff of Tamera 15.8 H, Plt Count 239, MPV 8.9, Immature Gran % (Auto) 0.700, Neut % (Auto) 66.5, Lymph % (Auto) 23.1, [place] % (Auto) 8.1, Eos % (Auto) 1.1, Baso % (Auto) 0.5, Absolute Neuts (auto) 4.9, Absolute Lymphs (auto) 1.69, Nucleated RBC % 0, PT 14.6, INR 1.1, Sodium 140,Potassium 3.4, Chloride 99, Carbon Dioxide 31.1, Anion Gap 11, BUN 17, Creatinine 0.86, Estim CreatClear Calc 1.09 L*, Est GFR (MDRD) Non-Af 65, BUN/Creatinine Ratio 19.8, Glucose 94, Calcium 9.5 08/03/24 10:31: POC Glucose 106 Micro: Microbiology 08/02/24 15:45 Stool Stool Occult Blood (AYAH) - Final Occult Blood Positive Imaging Radiology Impression Brain CT 08/03/24 11:10 IMPRESSION: NO ACUTE INTRACRANIAL HEMORRHAGE Chronic changes. Reading Location: [id number] Pelvis CT 08/03/24 11:10 IMPRESSION: Status post right intertrochanteric fracture reduction with compression screw and kaleb fixation device. Postoperative soft tissue changes. No evidence of localized hematoma. Reading Location: [id number] Assessment & Plan Assessment/Plan (1) Anemia: (2) GI bleed: PLAN: 89-year-old with past medical history of coronary artery disease status post CABG on Plavix, iron deficiency anemia on iron, acute CVA status post tPA treatment arrives with decrease in hemoglobin. Apparently she had some type of surgery on her upper GI tract requiring a gastric pull-through.Her hemoglobin went down to 4 grams and came back up after transfusion. This is the reason whycarey came in the hospital initially due to decrease in hemoglobin. I think she should at least have an upper endoscopy to evaluate upper GI tract for signs of acute on chronic GI blood loss in the setting of iron deficiency anemia in a patient on iron therapy. Currently at this time she has been worked upfor altered mental status by primary team. When patient is medically stable we can pursue endoscopy. Charges/Coding Visit Charges Inpatient E&M: 30797 Init Hosp L3 08/03/24 2302 Cosigner Signature (if applicable): CC: Dr. Kam Ocampo Sr., DO; Dr. Janine Harrison MD~ Signed [facility]06-25-2025 Radiology Diagnostic study note [facility] Imaging Services [address] [place], [place] [address] Brain/Head without Contrast MR#: [id number] Acct: [id number] Name: KATHERINE JUDGE Rep #: [id number] : 1935 F 89 From: Reyes Haynes MD PCP: Dr. Kam Ocampo Sr., DO Status: A DM IN Study:Brain/Head without Contrast Date of [place] m: 08/03/24 Exam# [id number] Ordering Dr: Hayden Cardenas DO PROCEDURE: BRAIN/HEAD WITHOUT CONTRAST 08/03/2024 REASON FOR EXAM: AMS ON PLAVIX, EVAL FOR BLEED TECHNIQUE: BRAIN/HEAD WITHOUT CONTRAST Coronal and Sagittal reconstruction series were provided. One or more dose reduction techniques were used (e.g., Automated exposure control, adjustment of the mA and/or kV according to patient size, use of iterative reconstruction technique. RADIATION DOSE SUMMARY: CTDlvol: 44.99 mGy DLP: 812.98 mGycm COMPARISON: Prior study dated November 06, 2022. FINDINGS: Brain: Low density in the periventricular white matter suggests mild chronic small vessel ischemic changes. CSF Spaces: Mild generalized cerebral atrophy Sinuses/Mastoids: Clear at visualized levels Bones: Unremarkable CT/Brain/Head without Contrast IMPRESSION: NO ACUTE INTRACRANIAL HEMORRHAGE Chronic changes. Reading Location: [facility] CC: Dr. Hayden Diaz DO; Dr. Kam Ocampo Sr., DO ~ Patient Care Assistant: Signed [facility]06-25-2025 Radiology Diagnostic study note [facility] Imaging Services [address] [place], [place] [id number] Pelvis without IV Contrast MR#: [id number] Acct: [id number] Name: KATHERINE JUDGE Rep #: [id number] : 1935 F 89 From: Reyes Haynes MD PCP: Dr. Kam Ocampo Sr., DO Status: A DM IN Study:Pelvis without IV Contrast Date of Exam : 08/03/24 Exam# [id number] Ordering Dr: Hayden Cardenas DO PROCEDURE: PELVIS WITHOUT IV CONTRAST 08/03/2024 REASON FOR EXAM: RECENT R HIP ORIF, EVAL FOR POSTOP HEMATOMA TECHNIQUE: PELVIS WITHOUT IV CONTRAST One or more dose reduction techniques were used (e.g., Automated exposure control, adjustment of the mA and/or kV according to patient size, use of iterative reconstruction technique). RADIATION DOSE SUMMARY: CTDlvol: 12.5 mGy DLP: 477.46 mGycm COMPARISON: None FINDINGS: Bones: The patient is status post intramedullary kaleb fixation and compresses screw fixation of the right intertrochanteric fracture. There is good alignment. Hip Joints: Joint space narrowing. SI Joints: Degenerative changes. Soft Tissues: Postoperative soft tissue changes and edema. No definite localized hematoma is seen. CT/Pelvis without IV Contrast IMPRESSION: Status post right intertrochanteric fracture reduction with compression screw and kaleb fixation device. Postoperative soft tissue changes. No evidence of localized hematoma. Reading Location: [facility] CC: Dr. Hayden Diaz DO; Dr. Kam Ocampo Sr., DO ~ Patient Care Assistant: Signed [facility]06-24-2025 History and physical note Author Janine Harrison [facility] Note Date/Time August 02, 2024 5:50 pm [facility] Medical Records Department [address] [place] [address] H&P Exam - Hospitalist 08/02/24 1720 MR#: [id number] Acct: [id number] Name: KATHERINE JUDGE Rep #:[id number] : 1935 89 From: Janine Harrison MD PCP: Dr. Kam Ocampo SrLeigh, DO Status:A DM IN Location: [facility] [place]-[place] HPI - General General Date of Admission: 08/02/24 Date of Service: 08/02/24 Chief Complaint: Low hgb HPI Narrative KATHERINE JUDGE, is a 89-year-old female with a history of TIA, hypertension, irondeficiency anemia, hip fracture repair last week, depression, GERD who presentedto [facility] ED 08/02/2024 with concerns for low hemoglobin. Son at bedside also reported she had been more confused recently though had beendoing well after she had her right hip replacement about a week ago. In the ED patient afebrile, heart rate 85 with a blood pressure 115/53, respiratory rate 16 and pulse ox 97% on room air. Hemoglobin 7.3 with a baseline around 10 and CMP without evidence of endorgan damage, UA does not appear infectious. CT abdomen obtained which showed findings suggestive of gastric pull-through with stomach and right hemithorax and distended urinary bladder. Rectal exam in the ED appeared black and Hemoccult was positive. Patient typed and crossed and started on PPI and hospitalist contacted admission. Patient evaluated at bedside with son present. Patient seemed to be confused and was an unreliable historian so history obtained primarily from the son, he reports overall she hadbeen fairly normal mental status on Thursday, he did not see her yesterday, but today she is very far from baseline and notes she usually gets like this when she has urinary tract infections. She did have right hip surgery recently and reports some right hip pain, unable to get any other specific ROS. Son does note that she has a history of abdominal surgeries and hiatal hernia but it has been at least since 2018 since she has had any surgeries or interventions. [facility] Medical History TIA (transient ischemic attack) Personal history of other diseases of digestive system Noninfective gastroenteritis and colitis, unspecified Essential hypertension Diaphragmatic hernia without obstruction or gangrene Constipation, unspecified Atherosclerotic heart disease of [place] coronary artery without angina pectoris Other specified disorders of white blood cells Other lack of coordination Hyperthyroidism Gout, unspecified Difficulty in walking, not elsewhere classified Depression, unspecified Calculus of gallbladder and bile duct without cholecystitis without obstruction Age-related physical debility Hypertension Home Medications ?Medication ?Instructions ?Recorded ?Last Taken ?Type Lactobacillus-Bifidobacterium 30 1 cap PO DAILY Unknown History billion cell capsule,delayed release (Ultimate Harrison Probiotic) acetaminophen 325 mg capsule 650 mg PO BID pain Unknown History (Tylenol) azelastine 137 mcg (0.1 %) nasal 1 spray intranasal BI D 10/30/22 Unknown History spray bupropion HCl 150 mg 24 hr tablet, 150 mg PO DAILY Unknown History extended release calcium carbonate (Calcium 500) 500 mg PO DAILY Unknown History dicyclomine 10 mg capsule 10 mg PO Q6H 10/30/22 Unknow n History doxazosin 2 mg tablet (Cardura) 2 mg PO DAILY 10/30/22 10/30/22 History fluticasone propionate 50 1 spray intranasal DAILY Unknown History mcg/actuation nasal spray,suspension (24 Hour Allergy Relief) food supplemt, lactose-reduced 8 ml PO DAILY 10/30/22 Unknown History (Ensure oral liquid) gabapentin 600 mg tablet 600 mg PO BID 10/30/22 Unkno wn History inulin 2 gram chewable tablet 5 g PO DAILY 10/30/22 Un known History (Fiber Gummies) isosorbide mononitrate 30 mg 30 mg PO DAILY 10/30/22 U nknown History tablet,extended release 24 hr metoprolol tartrate 25 mg tablet 25 mg PO BID 10/30/22 Unknown History mirtazapine 30 mg tablet 30 mg PO QHS 10/30/22 Unknow n History montelukast 10 mg tablet 10 mg PO QHS 10/30/22 Unknow n History multivitamin (Daily Multi-Vitamin 1 tab PO DAILY 10/30 Unknown History tablet) pantoprazole 40 mg tablet,delayed 40 mg PO DAILY 10/30 Unknown History release potassium chloride 20 mEq 20 meq PO DAILY 10/30/22 Unk nown History tablet,extended release (K-Tab) atorvastatin 40 mg tablet 40 mg PO QHS 20 days #30 tab s 11/02/22 Unknown Rx ascorbic acid (vitamin C) 500 mg 500 mg PO BID 5 Unknown History capsule budesonide 0.5 mg/2 mL suspension 0.5 mg inhalation BI D 08/02/24 Unknown History for nebulization cetirizine 5 mg tablet 5 mg PO DAILY 08/02/24 Unkno wn History cholecalciferol (vitamin D3) 125 125 mcg PO DAILY 07/11 06/03 Unknown History mcg (5,000 unit) tablet (Vitamin D3) ferrous sulfate 325 mg (65 mg 325 mg PO DAILY 08/02/24 Unknown History iron) tablet inulin-chromium picolinate 2 1 tab PO DAILY 08/02/24 U nknown History gram-100 mcg chewable tablet (Fiber Select Gummies) ipratropium 0.5 mg-albuterol 3 mg 3 ml inhalation BID 08/02/24 Unknown History (2.5 mg base)/3 mL nebulization soln polyethylene glycol 3350 17 17 g PO BID 08/02/24 Unkno wn History gram/dose oral powder (Miralax) Allergy/AdvReac Type Severity Reaction Status Date / Time cephalexin Allergy NEEDS Verified 08/02/24 16:18 FOLLOW-UP clarithromycin Allergy NEEDS Verified 08/02/24 16:18 FOLLOW-UP clindamycin Allergy NEEDS Verified 08/02/24 16:18 FOLLOW-UP doxazosin Allergy NEEDS Verified 11/06/22 16:25 FOLLOW-UP erythromycin base Allergy NEEDS Verified 08/02/24 16:18 FOLLOW-UP eszopiclone Allergy NEEDS Verified 08/02/24 16:18 FOLLOW-UP Fish Containing Products Allergy NEEDS Verified 08/02/24 16:18 FOLLOW-UP fish derived Allergy NEEDS Verified 08/02/24 16:18 FOLLOW-UP lincomycin Allergy NEEDS Verified 08/02/24 16:18 FOLLOW-UP lorazepam Allergy NEEDS Verified 08/02/24 16:18 FOLLOW-UP NSAIDS (Non-Steroidal Allergy NEEDS Verified 08/02/24 16:18 Anti-Inflamma FOLLOW-UP Penicillins Allergy NEEDS Verified 08/02/24 16:18 FOLLOW-UP rofecoxib Allergy NEEDS Verified 08/02/24 16:18 FOLLOW-UP salicylates Allergy NEEDS Verified 08/02/24 16:18 FOLLOW-UP temazepam Allergy NEEDS Verified 08/02/24 16:18 FOLLOW-UP Tetracyclines Allergy NEEDS Verified 08/02/24 16:18 FOLLOW-UP trazodone Allergy NEEDS Verified 08/02/24 16:18 FOLLOW-UP mushroom (mushrooms) AdvReac Food Unverified 08/02/24 16:18 Allergy Surgical History Presence of aortocoronary bypass graft Social History Smoking Status: Never smoker ROS ROS Narrative Unable to obtain full ROS given patient mental status, does report right hip pain, seems to deny any shortness of breath or cough, unable to really elicit any further definitive history aside from possibly some GERD symptoms Vital Signs Vital Signs Vital Signs: 08/02/24 13:04 08/02/24 13:06 08/02/24 13:06 Temperature 99 F 98.6 F Temperature Source Oral Oral Pulse Rate 85 81 Respiratory Rate 16 14 Respiratory Effort Normal Respiratory Pattern Normal Blood Pressure 115/53 L 119/41 L Blood Pressure Mean 73 67 Pulse Ox 97 99 Oxygen Delivery Method Room Air Oxygen Flow Rate (L/min) 08/02/24 14:09 08/02/24 15:00 08/02/24 16:00 Temperature 98.7 F Temperature Source Oral Pulse Rate 86 80 82 Respiratory Rate 18 15 15 Respiratory Effort Respiratory Pattern Blood Pressure 114/65 101/63 114/57 L Blood Pressure Mean 81 75 76 Pulse Ox 98 99 98 Oxygen Delivery Method Room Air Nasal Cannula Nasal Cannula Oxygen Flow Rate (L/min) 2 2 08/02/24 17:00 08/02/24 17:09 Temperature 98.7 F Temperature Source Pulse Rate 84 84 Respiratory Rate 22 H 22 H Respiratory Effort Respiratory Pattern Blood Pressure 135/49 H 135/49 H Blood Pressure Mean 77 77 Pulse Ox 100 100 Oxygen Delivery Method Nasal Cannula Oxygen Flow Rate (L/min) 2 Weight Weight: 51.7 kg Body Mass Index (BMI) 22.2 Physical Exam Narrative General: Awake, appears little bit tired, has difficulty answering questions structurally and seems confused HEENT: Normocephalic Eyes: Anicteric, normal conjunctiva, extraocular movements grossly intact Neck: Supple Respiratory: Clear to auscultation bilaterally, normal respiratory effort Cardiovascular: Regular rate and rhythm GI: Soft, nontender, nondistended Extremities: No edema Musculoskeletal: Moving all extremities in bed Neuro: Patient seems confused Skin: No rashes appreciated Psych: Attempts to be cooperative Results Lab / Micro Data 08/02/24 13:55 08/02/24 13:55 Labs: Laboratory Results - last 24 hr 08/02/24 13:55: WBC 7.7, RBC 2.11 L, Hgb 7.3 L, Hct 21.3 L, MCV 100.9 H, MCH 34.6 H, MCHC 34.3, RDW Std Deviation 50.4 H, RDW Coeff of Tamera 15.9 H, Plt Count 263, MPV 8.9, Immature Gran % (Auto) 0.500, Neut % (Auto) 70.8 H, Lymph % (Auto)19.7, [place] % (Auto) 7.2, Eos % (Auto) 1.4, Baso % (Auto) 0.4, Absolute Neuts (auto) 5.4, Absolute Lymphs (auto) 1.51, Nucleated RBC % 0, Sodium 141, Potassium 3.6, Chloride 98, Carbon Dioxide 34.9 H, Anion Gap 8, BUN 18, Creatinine 0.83, Estim Creat Clear Calc 33.65 L, Est GFR (MDRD) Non-Af 68, BUN/Creatinine Ratio 21.5 H, Glucose 114 H, Calcium 9.7, Total Bilirubin 0.80, AST 36 H, ALT 25, Alkaline Phosphatase 75, Total Protein 5.8 L, Albumin 3.0 L, Globulin 2.8, Albumin/Globulin Ratio 1.1, Lipase 21, Blood Type O POSITIVE, Antibody Screen TNP, Crossmatch See Detail 08/02/24 14:55: Urine Color Straw, Urine Clarity Clear, Urine pH 7.0, Ur Specific [place] 1.010, Urine Protein Negative, Urine Glucose (UA) Normal, UrineKetones Negative, Urine Occult Blood Negative, Urine Nitrite Negative, Urine Bilirubin Negative, Urine Urobilinogen Normal, Ur Leukocyte Esterase Negative, Urine RBC 0-5 SEEN, Urine WBC 0-5 SEEN, Ur Squamous Epith Cells 0-5 SEEN, Urine Bacteria 0 SEEN, Urine Mucus 0 SEEN Micro: Microbiology 08/02/24 15:45 Stool Stool Occult Blood (AYAH) - Final Occult Blood Positive Imaging Radiology Impression Abdomen/Pelvis CT 08/02/24 14:09 IMPRESSION: 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 Distended urinary bladder. Minimal intrahepatic biliary ductal dilatation. Reading Location: [facility] Assessment & Plan Assessment/Plan (1) GI bleed: (2) Anemia: (3) Altered mental status: PLAN: Plan # Concern for GI bleed -Fecal occult positive - IV PPI - Trend H&H, hemoglobin 7.3 in the ED - Type and crossed - GI consult # Recent hip fracture repair - Will consult PT/OT - Supportive care # Distended urinary bladder - Will obtain postvoid - Schedule bowel regimen to verify regular BMs #Confusion - UA did not appear to have a UTI - Metabolic workup otherwise not overly significant -Unclear how long she has been on gabapentin but could certainly be medication related, will hold temporarily while assessing mental status - Will check B12, folate, ammonia #Depression/anxiety -Continue home medications #GERD -Continue PPI #DVT ppx: SCDs Janine Harrison MD Charges/Coding Visit Charges Inpatient E&M: 07148 Init Hosp L2 08/02/24 1750 <Electronically signed by Janine Harrison MD> Cosigner Signature (if applicable): CC: Dr. Kam Ocampo Sr., DO; Dr. Janine Harrison MD~ Signed [facility] Work Phone: [phone] 413-929506-24-2025 Discharge summary Author Jamie Beltrán [facility] Note Date/Time August 02, 2024 4:32 pm [facility] Medical Records Department [address] [place] [address] Emergency Department Summary 08/02/24 MR#: [id number] Acct: [id number] Name: NUKATHERINE Wilber Rep #:[id number] : 1935 89 From: Jamie Beltrán DO PCP: Dr. Kam Ocampo Sr., DO Status:A DM IN Location: [place] [address] HPI History of Present Illness Chief Complaint: Abn Labs Narrative Narrative: Patient is a 81-year-old female with past medical history of TIA, hypertension, hypertension who presented to the emergency department with concern for low hemoglobin. According to the son at bedside she has also been more confused lately. She had a hip replacement done on the right side about a week ago and had been doing well. They state that she has a chronic iron deficiency as well and had given her iron replacement while in the hospital last time. [facility] Medical History TIA (transient ischemic attack) Personal history of other diseases of digestive system Noninfective gastroenteritis and colitis, unspecified Essential hypertension Diaphragmatic hernia without obstruction or gangrene Constipation, unspecified Atherosclerotic heart disease of [place] coronary artery without angina pectoris Other specified disorders of white blood cells Other lack of coordination Hyperthyroidism Gout, unspecified Difficulty in walking, not elsewhere classified Depression, unspecified Calculus of gallbladder and bile duct without cholecystitis without obstruction Age-related physical debility Hypertension Home Medications ?Medication ?Instructions ?Recorded ?Last Taken ?Type Lactobacillus-Bifidobacterium 30 1 cap PO DAILY Unknown History billion cell capsule,delayed release (Ultimate Harrison Probiotic) acetaminophen 325 mg capsule 500 mg PO BID 10/30/22 Un known History (Tylenol) azelastine 137 mcg (0.1 %) nasal 1 spray intranasal BI D 10/30/22 Unknown History spray bupropion HCl 150 mg 24 hr tablet, 150 mg PO DAILY Unknown History extended release calcium carbonate (Calcium 500) 500 mg PO DAILY Unknown History dicyclomine 10 mg capsule 10 mg PO Q6H 10/30/22 Unknow n History doxazosin 2 mg tablet (Cardura) 2 mg PO DAILY 10/30/22 10/30/22 History fluticasone propionate 50 1 spray intranasal DAILY Unknown History mcg/actuation nasal spray,suspension (24 Hour Allergy Relief) food supplemt, lactose-reduced 8 ml PO DAILY 10/30/22 Unknown History (Ensure oral liquid) gabapentin 600 mg tablet 600 mg PO BID 10/30/22 Unkno wn History guaifenesin 100 mg/5 mL oral 200 mg PO Q8 10/30/22 Unk nown History liquid (Chest Congestion Relief) inulin 2 gram chewable tablet 5 g PO DAILY 10/30/22 Un known History (Fiber Gummies) isosorbide mononitrate 30 mg 30 mg PO DAILY 10/30/22 U nknown History tablet,extended release 24 hr metoprolol tartrate 25 mg tablet 25 mg PO BID 10/30/22 Unknown History mirtazapine 30 mg tablet 30 mg PO QHS 10/30/22 Unknow n History montelukast 10 mg tablet 10 mg PO QHS 10/30/22 Unknow n History multivitamin (Daily Multi-Vitamin 1 tab PO DAILY 10/30 Unknown History tablet) pantoprazole 40 mg tablet,delayed 40 mg PO DAILY 10/30 Unknown History release potassium chloride 20 mEq 20 meq PO DAILY 10/30/22 Unk nown History tablet,extended release (K-Tab) atorvastatin 40 mg tablet 40 mg PO QHS 20 days #30 tab s 11/02/22 Unknown Rx cetirizine 5 mg tablet 5 mg PO DAILY 08/02/24 Unkno wn History ferrous sulfate 325 mg (65 mg 325 mg PO DAILY 08/02/24 Unknown History iron) tablet inulin-chromium picolinate 2 tab PO 08/02/24 Unknown H istory gram-100 mcg chewable tablet (Fiber Select Gummies) Allergy/AdvReac Type Severity Reaction Status Date / Time cephalexin Allergy NEEDS Verified 08/02/24 16:18 FOLLOW-UP clarithromycin Allergy NEEDS Verified 08/02/24 16:18 FOLLOW-UP clindamycin Allergy NEEDS Verified 08/02/24 16:18 FOLLOW-UP doxazosin Allergy NEEDS Verified 11/06/22 16:25 FOLLOW-UP erythromycin base Allergy NEEDS Verified 08/02/24 16:18 FOLLOW-UP eszopiclone Allergy NEEDS Verified 08/02/24 16:18 FOLLOW-UP Fish Containing Products Allergy NEEDS Verified 08/02/24 16:18 FOLLOW-UP fish derived Allergy NEEDS Verified 08/02/24 16:18 FOLLOW-UP lincomycin Allergy NEEDS Verified 08/02/24 16:18 FOLLOW-UP lorazepam Allergy NEEDS Verified 08/02/24 16:18 FOLLOW-UP NSAIDS (Non-Steroidal Allergy NEEDS Verified 08/02/24 16:18 Anti-Inflamma FOLLOW-UP Penicillins Allergy NEEDS Verified 08/02/24 16:18 FOLLOW-UP rofecoxib Allergy NEEDS Verified 08/02/24 16:18 FOLLOW-UP salicylates Allergy NEEDS Verified 08/02/24 16:18 FOLLOW-UP temazepam Allergy NEEDS Verified 08/02/24 16:18 FOLLOW-UP Tetracyclines Allergy NEEDS Verified 08/02/24 16:18 FOLLOW-UP trazodone Allergy NEEDS Verified 08/02/24 16:18 FOLLOW-UP mushroom (mushrooms) AdvReac Food Unverified 08/02/24 16:18 Allergy Surgical History Presence of aortocoronary bypass graft Social History Smoking Status: Never smoker ROS ROS ED ROS Narrative Constitutional: Denies fevers, chills, headaches Eyes: Denies change in vision double vision blurry vision Cardiovascular: Denies chest pain Respiratory: Complains of shortness of breath denies coughing Abdomen: Denies abdominal pain nausea vomiting diarrhea : Denies urinary symptoms Neurological: Denies any numbness, wheeze, tingling Musculoskeletal: Denies back pain Skin: Denies any rashes or lesions EXAM Physical Exam Narrative Exam Narrative: General: Patient was lying in bed rest comfortably did not appear to be acute distress Head: Atraumatic, normocephalic Eyes: PERRL bilaterally, EOMI bilateral, no conjunctival injection noted Neck: Soft, supple, trachea midline Cardiovascular: Regular rate and rhythm Respiratory: Clear to auscultation bilaterally Abdomen: Soft, nondistended, diffuse tenderness to palpation no rebound or guarding on exam Extremities: Radial pulses +2/4 in the bilateral extremities, +4/5 strength noted in the bilateral upper and lower extremities, no pedal edema exam Neurological: Patient following commands knew that she was at the hospital Skin: Warm, dry, tact no rashes lesions noted Const Vital Signs: 08/02/24 13:04 08/02/24 13:06 08/02/24 13:06 Temperature 99 F 98.6 F Temperature Source Oral Oral Pulse Rate 85 81 Respiratory Rate 16 14 Respiratory Effort Normal Respiratory Pattern Normal Blood Pressure 115/53 L 119/41 L Blood Pressure Mean 73 67 Pulse Ox 97 99 Oxygen Delivery Method Room Air Oxygen Flow Rate (L/min) 08/02/24 14:09 08/02/24 15:00 08/02/24 16:00 Temperature 98.7 F Temperature Source Oral Pulse Rate 86 80 82 Respiratory Rate 18 15 15 Respiratory Effort Respiratory Pattern Blood Pressure 114/65 101/63 114/57 L Blood Pressure Mean 81 75 76 Pulse Ox 98 99 98 Oxygen Delivery Method Room Air Nasal Cannula Nasal Cannula Oxygen Flow Rate (L/min) 2 2 MDM MDM MDM Narrative Medical decision making narrative: Patient is a 89-year-old female who presented to the emergency department the chief complaint of anemia. On the differential diagnose includes but not limited to iron deficiency anemia, GI bleed, bowel obstruction, ileus. Once workup is obtained reviewed she will be reevaluated. Patient's CBC was reviewed showed white blood count of 7.7, hemoglobin originally was noted to be 6.2 this was repeated is noted be 7.3 therefore bloodproducts were held, sodium normal 141, calcium normal 3.6, creatinine was noted be 0.83. Patient's AST and ALT were 36 and 25 respectively lipase normal at 21. Patient urinalysis showed no evidence of infection. Patient CT abdomen pelvis with IV contrast reviewed showed findings suggestive of status post gastric pull-through examination with the stomach in the right hemithorax. Distended urinary bladder minimal biliary ductal dilation. Rectal exam was performed she had black stool noted on exam this was Hemoccult positive she was given 40 mg IV Protonix. Will discuss case with hospitalist for admission for upper GI bleed concerns. Discussed case with hospitalist who accept patient for admission. Patient was notified as well as family at bedside all question concerns answered. Lab Data Labs: Laboratory Results - last 24 hr 08/02/24 08/02/24 13:55 14:55 WBC 7.7 RBC 2.11 L Hgb 7.3 L Hct 21.3 L MCV 100.9 H MCH 34.6 H MCHC 34.3 RDW Std Deviation 50.4 H RDW Coeff of Tamera 15.9 H Plt Count 263 MPV 8.9 Immature Gran % (Auto) 0.500 Neut % (Auto) 70.8 H Lymph % (Auto) 19.7 [place] % (Auto) 7.2 Eos % (Auto) 1.4 Baso % (Auto) 0.4 Absolute Neuts (auto) 5.4 Absolute Lymphs (auto) 1.51 Nucleated RBC % 0 Sodium 141 Potassium 3.6 Chloride 98 Carbon Dioxide 34.9 H Anion Gap 8 BUN 18 Creatinine 0.83 Estim Creat Clear Calc 33.65 L Est GFR (MDRD) Non-Af 68 BUN/Creatinine Ratio 21.5 H Glucose 114 H Calcium 9.7 Total Bilirubin 0.80 AST 36 H ALT 25 Alkaline Phosphatase 75 Total Protein 5.8 L Albumin 3.0 L Globulin 2.8 Albumin/Globulin Ratio 1.1 Lipase 21 Urine Color Straw Urine Clarity Clear Urine pH 7.0 Ur Specific [place] 1.010 Urine Protein Negative Urine Glucose (UA) Normal Urine Ketones Negative Urine Occult Blood Negative Urine Nitrite Negative Urine Bilirubin Negative Urine Urobilinogen Normal Ur Leukocyte Esterase Negative Urine RBC 0-5 SEEN Urine WBC 0-5 SEEN Ur Squamous Epith Cells 0-5 SEEN Urine Bacteria 0 SEEN Urine Mucus 0 SEEN Blood Type O POSITIVE Crossmatch See Detail Radiography Diagnostic Testing: Clinical Impression(s) from Imaging Studies Abdomen/Pelvis CT 08/02/24 14:09 IMPRESSION: 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 Distended urinary bladder. Minimal intrahepatic biliary ductal dilatation. Reading Location: [id number] Discharge Plan Triage Chief Complaint: Abn Labs Other Complaint: Confusion ED Provider: Jamie Beltrán Dx/Rx/DC Orders Clinical Impression: GI bleed, Anemia, Altered mental status Prescriptions: No Action Ensure Liquid 8 ml PO DAILY bupropion HCl 150 mg tablet extended release 24 hr 150 mg PO DAILY calcium carbonate [Calcium 500] 500 mg calcium (1,250 mg) tablet,chewable 500 mg PO DAILY doxazosin [Cardura] 2 mg tablet 2 mg PO DAILY Fiber Gummies 2 gram tablet,chewable 5 g PO DAILY fluticasone propionate [24 Hour [...] PO QHS 20 Days Qty: 30 2RF cetirizine 5 mg tablet 5 mg PO DAILY ferrous sulfate 325 mg (65 mg iron) tablet 325 mg PO DAILY Fiber Select Gummies 2-100 gram-mcg tablet,chewable PO Primary Care Provider: Kam Ocampo Sr. Referrals: Kam Ocampo Sr., DO [Primary Care Provider] - Print Language: Belgian Disposition Disposition: Acute Care Hospital [facility] What to do if you have Problems For any increased pain, shortness of breath, bleeding, nausea or vomiting, chestpain, or any unexpected problems, contact your Primary Care Provider. Call [facility] ([phone]) or report to the closest Emergency Room. Call 911 if necessary. 08/02/24 1632 <Electronically signed by Jamie Beltrán DO> Cosigner Signature (if applicable): CC: Dr. Kam Ocampo Sr., DO ~ Signed [facility] Work Phone: [phone] History and physical note [facility] Medical Records Department [address] [place] [id number] H&P Exam - Hospitalist 08/02/24 1720 MR#: [id number] Acct: [id number] Name: KATHERINE JUDGE Rep #:[id number] : 1935 89 From: Janine Harrison MD PCP: Dr. Kam Ocampo Sr., Status:A DM IN Location: ME3 [id number] HPI - General General Date of Admission: 08/02/24 Date of Service: 08/02/24 Chief Complaint: Low hgb HPI Narrative KATHERINE JUDGE, is a 89-year-old female with a history of TIA, hypertension, irondeficiency anemia, hip fracture repair last week, depression, GERD who presentedto [facility] ED 08/02/2024 with concerns for low hemoglobin. Son at bedside also reported she had been more confused recently though had beendoing well after she had her right hip replacement about a week ago. In the ED patient afebrile, heart rate 85 with a blood pressure 115/53, respiratory rate 16 and pulse ox 97% on room air. Hemoglobin 7.3 with a baseline around 10 and CMP without evidence of endorgan damage, UA does not appear infectious. CT abdomen obtained which showed findings suggestive of gastric pull-through with stomach and right hemithorax and distended urinary bladder. Rectal exam in the ED appeared black and Hemoccult was positive. Patient typed and crossed and started on PPI and hospitalist contacted admission. Patient evaluated at bedside with son present. Patient seemed to be confused and was an unreliable historian so history obtained primarily from the son, he reports overall she hadbeen fairly normal mental status on Thursday, he did not see her yesterday, but today she is very far from baseline and notes she usually gets like this when she has urinary tract infections. She did have right hip surgery recently and reports some right hip pain, unable to get any other specific ROS. Son does note that she has a history of abdominal surgeries and hiatal hernia but it has been at least since 2018 since she has had any surgeries or interventions. [facility] Medical History TIA (transient ischemic attack) Personal history of other diseases of digestive system Noninfective gastroenteritis and colitis, unspecified Essential hypertension Diaphragmatic hernia without obstruction or gangrene Constipation, unspecified Atherosclerotic heart disease of [place] coronary artery without angina pectoris Other specified disorders of white blood cells Other lack of coordination Hyperthyroidism Gout, unspecified Difficulty in walking, not elsewhere classified Depression, unspecified Calculus of gallbladder and bile duct without cholecystitis without obstruction Age-related physical debility Hypertension Home Medications ?Medication ?Instructions ?Recorded ?Last Taken ?Type Lactobacillus-Bifidobacterium 30 1 cap PO DAILY Unknown History billion cell capsule,delayed release (Ultimate Harrison Probiotic) acetaminophen 325 mg capsule 650 mg PO BID pain Unknown History (Tylenol) azelastine 137 mcg (0.1 %) nasal 1 spray intranasal BI D 10/30/22 Unknown History spray bupropion HCl 150 mg 24 hr tablet, 150 mg PO DAILY Unknown History extended release calcium carbonate (Calcium 500) 500 mg PO DAILY Unknown History dicyclomine 10 mg capsule 10 mg PO Q6H 10/30/22 Unknow n History doxazosin 2 mg tablet (Cardura) 2 mg PO DAILY 10/30/22 10/30/22 History fluticasone propionate 50 1 spray intranasal DAILY Unknown History mcg/actuation nasal spray,suspension (24 Hour Allergy Relief) food supplemt, lactose-reduced 8 ml PO DAILY 10/30/22 Unknown History (Ensure oral liquid) gabapentin 600 mg tablet 600 mg PO BID 10/30/22 Unkno wn History inulin 2 gram chewable tablet 5 g PO DAILY 10/30/22 Un known History (Fiber Gummies) isosorbide mononitrate 30 mg 30 mg PO DAILY 10/30/22 U nknown History tablet,extended release 24 hr metoprolol tartrate 25 mg tablet 25 mg PO BID 10/30/22 Unknown History mirtazapine 30 mg tablet 30 mg PO QHS 10/30/22 Unknow n History montelukast 10 mg tablet 10 mg PO QHS 10/30/22 Unknow n History multivitamin (Daily Multi-Vitamin 1 tab PO DAILY 10/30 Unknown History tablet) pantoprazole 40 mg tablet,delayed 40 mg PO DAILY 10/30 Unknown History release potassium chloride 20 mEq 20 meq PO DAILY 10/30/22 Unk nown History tablet,extended release (K-Tab) atorvastatin 40 mg tablet 40 mg PO QHS 20 days #30 tab s 11/02/22 Unknown Rx ascorbic acid (vitamin C) 500 mg 500 mg PO BID 5 Unknown History capsule budesonide 0.5 mg/2 mL suspension 0.5 mg inhalation BI D 08/02/24 Unknown History for nebulization cetirizine 5 mg tablet 5 mg PO DAILY 08/02/24 Unkno wn History cholecalciferol (vitamin D3) 125 125 mcg PO DAILY 07/11 06/03 Unknown History mcg (5,000 unit) tablet (Vitamin D3) ferrous sulfate 325 mg (65 mg 325 mg PO DAILY 08/02/24 Unknown History iron) tablet inulin-chromium picolinate 2 1 tab PO DAILY 08/02/24 U nknown History gram-100 mcg chewable tablet (Fiber Select Gummies) ipratropium 0.5 mg-albuterol 3 mg 3 ml inhalation BID 08/02/24 Unknown History (2.5 mg base)/3 mL nebulization soln polyethylene glycol 3350 17 17 g PO BID 08/02/24 Unkno wn History gram/dose oral powder (Miralax) Allergy/AdvReac Type Severity Reaction Status Date / Time cephalexin Allergy NEEDS Verified 08/02/24 16:18 FOLLOW-UP clarithromycin Allergy NEEDS Verified 08/02/24 16:18 FOLLOW-UP clindamycin Allergy NEEDS Verified 08/02/24 16:18 FOLLOW-UP doxazosin Allergy NEEDS Verified 11/06/22 16:25 FOLLOW-UP erythromycin base Allergy NEEDS Verified 08/02/24 16:18 FOLLOW-UP eszopiclone Allergy NEEDS Verified 08/02/24 16:18 FOLLOW-UP Fish Containing Products Allergy NEEDS Verified 08/02/24 16:18 FOLLOW-UP fish derived Allergy NEEDS Verified 08/02/24 16:18 FOLLOW-UP lincomycin Allergy NEEDS Verified 08/02/24 16:18 FOLLOW-UP lorazepam Allergy NEEDS Verified 08/02/24 16:18 FOLLOW-UP NSAIDS (Non-Steroidal Allergy NEEDS Verified 08/02/24 16:18 Anti-Inflamma FOLLOW-UP Penicillins Allergy NEEDS Verified 08/02/24 16:18 FOLLOW-UP rofecoxib Allergy NEEDS Verified 08/02/24 16:18 FOLLOW-UP salicylates Allergy NEEDS Verified 08/02/24 16:18 FOLLOW-UP temazepam Allergy NEEDS Verified 08/02/24 16:18 FOLLOW-UP Tetracyclines Allergy NEEDS Verified 08/02/24 16:18 FOLLOW-UP trazodone Allergy NEEDS Verified 08/02/24 16:18 FOLLOW-UP mushroom (mushrooms) AdvReac Food Unverified 08/02/24 16:18 Allergy Surgical History Presence of aortocoronary bypass graft Social History Smoking Status: Never smoker ROS ROS Narrative Unable to obtain full ROS given patient mental status, does report right hip pain, seems to deny any shortness of breath or cough, unable to really elicit any further definitive history aside from possibly some GERD symptoms Vital Signs Vital Signs Vital Signs: 08/02/24 13:04 08/02/24 13:06 08/02/24 13:06 Temperature 99 F 98.6 F Temperature Source Oral Oral Pulse Rate 85 81 Respiratory Rate 16 14 Respiratory Effort Normal Respiratory Pattern Normal Blood Pressure 115/53 L 119/41 L Blood Pressure Mean 73 67 Pulse Ox 97 99 Oxygen Delivery Method Room Air Oxygen Flow Rate (L/min) 08/02/24 14:09 08/02/24 15:00 08/02/24 16:00 Temperature 98.7 F Temperature Source Oral Pulse Rate 86 80 82 Respiratory Rate 18 15 15 Respiratory Effort Respiratory Pattern Blood Pressure 114/65 101/63 114/57 L Blood Pressure Mean 81 75 76 Pulse Ox 98 99 98 Oxygen Delivery Method Room Air Nasal Cannula Nasal Cannula Oxygen Flow Rate (L/min) 2 2 08/02/24 17:00 08/02/24 17:09 Temperature 98.7 F Temperature Source Pulse Rate 84 84 Respiratory Rate 22 H 22 H Respiratory Effort Respiratory Pattern Blood Pressure 135/49 H 135/49 H Blood Pressure Mean 77 77 Pulse Ox 100 100 Oxygen Delivery Method Nasal Cannula Oxygen Flow Rate (L/min) 2 Weight Weight: 51.7 kg Body Mass Index (BMI) 22.2 Physical Exam Narrative General: Awake, appears little bit tired, has difficulty answering questions structurally and seemsconfused HEENT: Normocephalic Eyes: Anicteric, normal conjunctiva, extraocular movements grossly intact Neck: Supple Respiratory: Clear to auscultation bilaterally, normal respiratory effort Cardiovascular: Regular rate and rhythm GI: Soft, nontender, nondistended Extremities: No edema Musculoskeletal: Moving all extremities in bed Neuro: Patient seems confused Skin: No rashes appreciated Psych: Attempts to be cooperative Results Lab / Micro Data 08/02/24 13:55 08/02/24 13:55 Labs: Laboratory Results - last 24 hr 08/02/24 13:55: WBC 7.7, RBC 2.11 L, Hgb 7.3 L, Hct 21.3 L, MCV 100.9 H, MCH 34.6 H, MCHC 34.3, RDWStd Deviation 50.4 H, RDW Coeff of Tamera 15.9 H, Plt Count 263, MPV 8.9, Immature Gran % (Auto) 0.500, Neut % (Auto) 70.8 H, Lymph % (Auto)19.7, [place] % (Auto) 7.2, Eos % (Auto) 1.4, Baso % (Auto) 0.4, Absolute Neuts (auto) 5.4, Absolute Lymphs (auto) 1.51, Nucleated RBC % 0, Sodium 141, Potassium 3.6, Chloride 98, Carbon Dioxide 34.9 H, Anion Gap 8, BUN 18, Creatinine 0.83, Estim Creat Clear Calc 33.65 L, Est GFR (MDRD) Non-Af 68, BUN/Creatinine Ratio 21.5 H, Glucose 114 H, Calcium 9.7, Total Bilirubin 0.80, AST 36 H, ALT 25, Alkaline Phosphatase 75, Total Protein 5.8 L, Albumin 3.0 L, Globulin2.8, Albumin/Globulin Ratio 1.1, Lipase 21, Blood Type O POSITIVE, Antibody Screen TNP, Crossmatch See Detail 08/02/24 14:55: Urine Color Straw, Urine Clarity Clear, Urine pH 7.0, Ur Specific [place]obb[place] 1.010, Urine Protein Negative, Urine Glucose (UA) Normal, UrineKetones Negative, Urine Occult Blood Negative,Urine Nitrite Negative, Urine Bilirubin Negative, Urine Urobilinogen Normal, Ur Leukocyte Esterase Negative, Urine RBC 0-5 SEEN, Urine WBC 0-5 SEEN, Ur Squamous Epith Cells 0-5 SEEN, Urine Bacteria 0SEEN, Urine Mucus 0 SEEN Micro: Microbiology 08/02/24 15:45 Stool Stool Occult Blood (AYAH) - Final Occult Blood Positive Imaging Radiology Impression Abdomen/Pelvis CT 08/02/24 14:09 IMPRESSION: 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 Distended urinary bladder. Minimal intrahepatic biliary ductal dilatation. Reading Location: [id number] Assessment & Plan Assessment/Plan (1) GI bleed: (2) Anemia: (3) Altered mental status: PLAN: Plan # Concern for GI bleed -Fecal occult positive - IV PPI - Trend H&H, hemoglobin 7.3 in the ED - Type and crossed - GI consult # Recent hip fracture repair - Will consult PT/OT - Supportive care # Distended urinary bladder - Will obtain postvoid - Schedule bowel regimen to verify regular BMs #Confusion - UA did not appear to have a UTI - Metabolic workup otherwise not overly significant -Unclear how long she has been on gabapentin but could certainly be medication related, will hold temporarily while assessing mental status - Will check B12, folate, ammonia #Depression/anxiety -Continue home medications #GERD -Continue PPI #DVT ppx: SCDs Janine Harrison MD Charges/Coding Visit Charges Inpatient E&M: 08882 Init Hosp L2 08/02/24 1750 Cosigner Signature (if applicable): CC: Dr. Kam Ocampo Sr., DO; Dr. Janine Harrison MD~ Signed [facility]06-24-2025 Discharge summary [facility] Medical Records Department [address] [place] [address] Emergency Department Summary 08/02/24 MR#: [id number] Acct: [id number] Name: KATHERINE JUDGE Rep #:[id number] : 1935 89 From: Jamie Beltrán DO PCP: Dr. Kam Ocampo Sr., DO Status:R EG ER Location: ED HPI History of Present Illness Chief Complaint: Abn Labs Narrative Narrative: Patient is a 81-year-old female with past medical history of TIA, hypertension, hypertension who presented to the emergency department with concern for low hemoglobin. According to the son at bedsideshe has also been more confused lately. She had a hip replacement done on the right side about a week ago and had been doing well. They state that she has a chronic iron deficiency as well and had given her iron replacement while in the hospital last time. [facility] Medical History TIA (transient ischemic attack) Personal history of other diseases of digestive system Noninfective gastroenteritis and colitis, unspecified Essential hypertension Diaphragmatic hernia without obstruction or gangrene Constipation, unspecified Atherosclerotic heart disease of [place] coronary artery without angina pectoris Other specified disorders of white blood cells Other lack of coordination Hyperthyroidism Gout, unspecified Difficulty in walking, not elsewhere classified Depression, unspecified Calculus of gallbladder and bile duct without cholecystitis without obstruction Age-related physical debility Hypertension Home Medications ?Medication ?Instructions ?Recorded ?Last Taken ?Type Lactobacillus-Bifidobacterium 30 1 cap PO DAILY Unknown History billion cell capsule,delayed release (Ultimate Harrison Probiotic) acetaminophen 325 mg capsule 500 mg PO BID 10/30/22 Un known History (Tylenol) azelastine 137 mcg (0.1 %) nasal 1 spray intranasal BI D 10/30/22 Unknown History spray bupropion HCl 150 mg 24 hr tablet, 150 mg PO DAILY Unknown History extended release calcium carbonate (Calcium 500) 500 mg PO DAILY Unknown History dicyclomine 10 mg capsule 10 mg PO Q6H 10/30/22 Unknow n History doxazosin 2 mg tablet (Cardura) 2 mg PO DAILY 10/30/22 10/30/22 History fluticasone propionate 50 1 spray intranasal DAILY Unknown History mcg/actuation nasal spray,suspension (24 Hour Allergy Relief) food supplemt, lactose-reduced 8 ml PO DAILY 10/30/22 Unknown History (Ensure oral liquid) gabapentin 600 mg tablet 600 mg PO BID 10/30/22 Unkno wn History guaifenesin 100 mg/5 mL oral 200 mg PO Q8 10/30/22 Unk nown History liquid (Chest Congestion Relief) inulin 2 gram chewable tablet 5 g PO DAILY 10/30/22 Un known History (Fiber Gummies) isosorbide mononitrate 30 mg 30 mg PO DAILY 10/30/22 U nknown History tablet,extended release 24 hr metoprolol tartrate 25 mg tablet 25 mg PO BID 10/30/22 Unknown History mirtazapine 30 mg tablet 30 mg PO QHS 10/30/22 Unknow n History montelukast 10 mg tablet 10 mg PO QHS 10/30/22 Unknow n History multivitamin (Daily Multi-Vitamin 1 tab PO DAILY 10/30 Unknown History tablet) pantoprazole 40 mg tablet,delayed 40 mg PO DAILY 10/30 Unknown History release potassium chloride 20 mEq 20 meq PO DAILY 10/30/22 Unk nown History tablet,extended release (K-Tab) atorvastatin 40 mg tablet 40 mg PO QHS 20 days #30 tab s 11/02/22 Unknown Rx cetirizine 5 mg tablet 5 mg PO DAILY 08/02/24 Unkno wn History ferrous sulfate 325 mg (65 mg 325 mg PO DAILY 08/02/24 Unknown History iron) tablet inulin-chromium picolinate 2 tab PO 08/02/24 Unknown H istory gram-100 mcg chewable tablet (Fiber Select Gummies) Allergy/AdvReac Type Severity Reaction Status Date / Time cephalexin Allergy NEEDS Verified 08/02/24 16:18 FOLLOW-UP clarithromycin Allergy NEEDS Verified 08/02/24 16:18 FOLLOW-UP clindamycin Allergy NEEDS Verified 08/02/24 16:18 FOLLOW-UP doxazosin Allergy NEEDS Verified 11/06/22 16:25 FOLLOW-UP erythromycin base Allergy NEEDS Verified 08/02/24 16:18 FOLLOW-UP eszopiclone Allergy NEEDS Verified 08/02/24 16:18 FOLLOW-UP Fish Containing Products Allergy NEEDS Verified 08/02/24 16:18 FOLLOW-UP fish derived Allergy NEEDS Verified 08/02/24 16:18 FOLLOW-UP lincomycin Allergy NEEDS Verified 08/02/24 16:18 FOLLOW-UP lorazepam Allergy NEEDS Verified 08/02/24 16:18 FOLLOW-UP NSAIDS (Non-Steroidal Allergy NEEDS Verified 08/02/24 16:18 Anti-Inflamma FOLLOW-UP Penicillins Allergy NEEDS Verified 08/02/24 16:18 FOLLOW-UP rofecoxib Allergy NEEDS Verified 08/02/24 16:18 FOLLOW-UP salicylates Allergy NEEDS Verified 08/02/24 16:18 FOLLOW-UP temazepam Allergy NEEDS Verified 08/02/24 16:18 FOLLOW-UP Tetracyclines Allergy NEEDS Verified 08/02/24 16:18 FOLLOW-UP trazodone Allergy NEEDS Verified 08/02/24 16:18 FOLLOW-UP mushroom (mushrooms) AdvReac Food Unverified 08/02/24 16:18 Allergy Surgical History Presence of aortocoronary bypass graft Social History Smoking Status: Never smoker ROS ROS ED ROS Narrative Constitutional: Denies fevers, chills, headaches Eyes: Denies change in vision double vision blurry vision Cardiovascular: Denies chest pain Respiratory: Complains of shortness of breath denies coughing Abdomen: Denies abdominal pain nausea vomiting diarrhea : Denies urinary symptoms Neurological: Denies any numbness, wheeze, tingling Musculoskeletal: Denies back pain Skin: Denies any rashes or lesions EXAM Physical Exam Narrative Exam Narrative: General: Patient was lying in bed rest comfortably did not appear to be acute distress Head: Atraumatic, normocephalic Eyes: PERRL bilaterally, EOMI bilateral, no conjunctival injection noted Neck: Soft, supple, trachea midline Cardiovascular: Regular rate and rhythm Respiratory: Clear to auscultation bilaterally Abdomen: Soft, nondistended, diffuse tenderness to palpation no rebound or guarding on exam Extremities: Radial pulses +2/4 in the bilateral extremities, +4/5 strength noted in the bilateral upper and lower extremities, no pedal edema exam Neurological: Patient following commands knew that she was at the hospital Skin: Warm, dry, tact no rashes lesions noted Const Vital Signs: 08/02/24 13:04 08/02/24 13:06 08/02/24 13:06 Temperature 99 F 98.6 F Temperature Source Oral Oral Pulse Rate 85 81 Respiratory Rate 16 14 Respiratory Effort Normal Respiratory Pattern Normal Blood Pressure 115/53 L 119/41 L Blood Pressure Mean 73 67 Pulse Ox 97 99 Oxygen Delivery Method Room Air Oxygen Flow Rate (L/min) 08/02/24 14:09 08/02/24 15:00 08/02/24 16:00 Temperature 98.7 F Temperature Source Oral Pulse Rate 86 80 82 Respiratory Rate 18 15 15 Respiratory Effort Respiratory Pattern Blood Pressure 114/65 101/63 114/57 L Blood Pressure Mean 81 75 76 Pulse Ox 98 99 98 Oxygen Delivery Method Room Air Nasal Cannula Nasal Cannula Oxygen Flow Rate (L/min) 2 2 MDM MDM MDM Narrative Medical decision making narrative: Patient is a 89-year-old female who presented to the emergency department the chief complaint of anemia. On the differential diagnose includes but not limited to iron deficiency anemia, GI bleed, bowel obstruction, ileus. Once workup is obtained reviewed she will be reevaluated. Patient's CBC was reviewed showed white blood count of 7.7, hemoglobin originally was noted to be 6.2 this was repeated is noted be 7.3 therefore bloodproducts were held, sodium normal 141, calcium normal 3.6, creatinine was noted be 0.83. Patient's AST and ALT were 36 and 25 respectively lipase normal at 21. Patient urinalysis showed no evidence of infection. Patient CT abdomen pelvis with IV contrast reviewed showed findings suggestive of status post gastric pull-through examination with the stomach in the right hemithorax. Distended urinary bladder minimal biliary ductal dilation. Rectal exam was performed she had black stool noted on exam this was Hemoccult positive she was given 40 mg IV Protonix. Will discuss case with hospitalist for admission for upper GI bleed concerns. Discussed case with hospitalist who accept patient for admission. Patient was notified as well as family at bedside all question concerns answered. Lab Data Labs: Laboratory Results - last 24 hr 08/02/24 08/02/24 13:55 14:55 WBC 7.7 RBC 2.11 L Hgb 7.3 L Hct 21.3 L MCV 100.9 H MCH 34.6 H MCHC 34.3 RDW Std Deviation 50.4 H RDW Coeff of Tamera 15.9 H Plt Count 263 MPV 8.9 Immature Gran % (Auto) 0.500 Neut % (Auto) 70.8 H Lymph % (Auto) 19.7 [place] % (Auto) 7.2 Eos % (Auto) 1.4 Baso % (Auto) 0.4 Absolute Neuts (auto) 5.4 Absolute Lymphs (auto) 1.51 Nucleated RBC % 0 Sodium 141 Potassium 3.6 Chloride 98 Carbon Dioxide 34.9 H Anion Gap 8 BUN 18 Creatinine 0.83 Estim Creat Clear Calc 33.65 L Est GFR (MDRD) Non-Af 68 BUN/Creatinine Ratio 21.5 H Glucose 114 H Calcium 9.7 Total Bilirubin 0.80 AST 36 H ALT 25 Alkaline Phosphatase 75 Total Protein 5.8 L Albumin 3.0 L Globulin 2.8 Albumin/Globulin Ratio 1.1 Lipase 21 Urine Color Straw Urine Clarity Clear Urine pH 7.0 Ur Specific [place]obb[place] 1.010 Urine Protein Negative Urine Glucose (UA) Normal Urine Ketones Negative Urine Occult Blood Negative Urine Nitrite Negative Urine Bilirubin Negative Urine Urobilinogen Normal Ur Leukocyte Esterase Negative Urine RBC 0-5 SEEN Urine WBC 0-5 SEEN Ur Squamous Epith Cells 0-5 SEEN Urine Bacteria 0 SEEN Urine Mucus 0 SEEN Blood Type O POSITIVE Crossmatch See Detail Radiography Diagnostic Testing: Clinical Impression(s) from Imaging Studies Abdomen/Pelvis CT 08/02/24 14:09 IMPRESSION: 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 Distended urinary bladder. Minimal intrahepatic biliary ductal dilatation. Reading Location: [facility] Discharge Plan Triage Chief Complaint: Abn Labs Other Complaint: Confusion ED Provider: Jamie Beltrán Dx/Rx/DC Orders Clinical Impression: GI bleed, Anemia, Altered mental status Prescriptions: No Action Ensure Liquid 8 ml PO DAILY bupropion HCl 150 mg tablet extended release 24 hr 150 mg PO DAILY calcium carbonate [Calcium 500] 500 mg calcium (1,250 mg) tablet,chewable 500 mg PO DAILY doxazosin [Cardura] 2 mg tablet 2 mg PO DAILY Fiber Gummies 2 gram tablet,chewable 5 g PO DAILY fluticasone propionate [24 Hour [...] PO QHS 20 Days Qty: 30 2RF cetirizine 5 mg tablet 5 mg PO DAILY ferrous sulfate 325 mg (65 mg iron) tablet 325 mg PO DAILY Fiber Select Gummies 2-100 gram-mcg tablet,chewable PO Primary Care Provider: Kam Ocampo Sr. Referrals: Kam Ocampo Sr., DO [Primary Care Provider] - Print Language: Belgian Disposition Disposition: Acute Care Hospital [facility] What to do if you have Problems For any increased pain, shortness of breath, bleeding, nausea or vomiting, chestpain, or any unexpected problems, contact your Primary Care Provider. Call [facility] ([phone]) or report tothe closest Emergency Room. Call 911 if necessary. 08/02/24 1632 Cosigner Signature (if applicable): CC: Dr. Kam Ocampo Sr., DO ~ Signed [facility]06-24-2025 Discharge summary [facility] Medical Records Department [address] [place] [address] Emergency Department Summary 08/02/24 MR#: [id number] Acct: [id number] Name: KATHERINE JUDGE Rep #:[id number] : 1935 89 From: Jamie Beltrán DO PCP: Dr. Kam Ocampo Sr., DO Status:A DM IN Location: [facility] [place] [id number] HPI History of Present Illness Chief Complaint: Abn Labs Narrative Narrative: Patient is a 81-year-old female with past medical history of TIA, hypertension, hypertension who presented to the emergency department with concern for low hemoglobin. According to the son at bedsideshe has also been more confused lately. She had a hip replacement done on the right side about a week ago and had been doing well. They state that she has a chronic iron deficiency as well and had given her iron replacement while in the hospital last time. [facility] Medical History TIA (transient ischemic attack) Personal history of other diseases of digestive system Noninfective gastroenteritis and colitis, unspecified Essential hypertension Diaphragmatic hernia without obstruction or gangrene Constipation, unspecified Atherosclerotic heart disease of [place] coronary artery without angina pectoris Other specified disorders of white blood cells Other lack of coordination Hyperthyroidism Gout, unspecified Difficulty in walking, not elsewhere classified Depression, unspecified Calculus of gallbladder and bile duct without cholecystitis without obstruction Age-related physical debility Hypertension Home Medications ?Medication ?Instructions ?Recorded ?Last Taken ?Type Lactobacillus-Bifidobacterium 30 1 cap PO DAILY Unknown History billion cell capsule,delayed release (Ultimate Harrison Probiotic) acetaminophen 325 mg capsule 500 mg PO BID 10/30/22 Un known History (Tylenol) azelastine 137 mcg (0.1 %) nasal 1 spray intranasal BI D 10/30/22 Unknown History spray bupropion HCl 150 mg 24 hr tablet, 150 mg PO DAILY Unknown History extended release calcium carbonate (Calcium 500) 500 mg PO DAILY Unknown History dicyclomine 10 mg capsule 10 mg PO Q6H 10/30/22 Unknow n History doxazosin 2 mg tablet (Cardura) 2 mg PO DAILY 10/30/22 10/30/22 History fluticasone propionate 50 1 spray intranasal DAILY Unknown History mcg/actuation nasal spray,suspension (24 Hour Allergy Relief) food supplemt, lactose-reduced 8 ml PO DAILY 10/30/22 Unknown History (Ensure oral liquid) gabapentin 600 mg tablet 600 mg PO BID 10/30/22 Unkno wn History guaifenesin 100 mg/5 mL oral 200 mg PO Q8 10/30/22 Unk nown History liquid (Chest Congestion Relief) inulin 2 gram chewable tablet 5 g PO DAILY 10/30/22 Un known History (Fiber Gummies) isosorbide mononitrate 30 mg 30 mg PO DAILY 10/30/22 U nknown History tablet,extended release 24 hr metoprolol tartrate 25 mg tablet 25 mg PO BID 10/30/22 Unknown History mirtazapine 30 mg tablet 30 mg PO QHS 10/30/22 Unknow n History montelukast 10 mg tablet 10 mg PO QHS 10/30/22 Unknow n History multivitamin (Daily Multi-Vitamin 1 tab PO DAILY 10/30 Unknown History tablet) pantoprazole 40 mg tablet,delayed 40 mg PO DAILY 10/30 Unknown History release potassium chloride 20 mEq 20 meq PO DAILY 10/30/22 Unk nown History tablet,extended release (K-Tab) atorvastatin 40 mg tablet 40 mg PO QHS 20 days #30 tab s 11/02/22 Unknown Rx cetirizine 5 mg tablet 5 mg PO DAILY 08/02/24 Unkno wn History ferrous sulfate 325 mg (65 mg 325 mg PO DAILY 08/02/24 Unknown History iron) tablet inulin-chromium picolinate 2 tab PO 08/02/24 Unknown H istory gram-100 mcg chewable tablet (Fiber Select Gummies) Allergy/AdvReac Type Severity Reaction Status Date / Time cephalexin Allergy NEEDS Verified 08/02/24 16:18 FOLLOW-UP clarithromycin Allergy NEEDS Verified 08/02/24 16:18 FOLLOW-UP clindamycin Allergy NEEDS Verified 08/02/24 16:18 FOLLOW-UP doxazosin Allergy NEEDS Verified 11/06/22 16:25 FOLLOW-UP erythromycin base Allergy NEEDS Verified 08/02/24 16:18 FOLLOW-UP eszopiclone Allergy NEEDS Verified 08/02/24 16:18 FOLLOW-UP Fish Containing Products Allergy NEEDS Verified 08/02/24 16:18 FOLLOW-UP fish derived Allergy NEEDS Verified 08/02/24 16:18 FOLLOW-UP lincomycin Allergy NEEDS Verified 08/02/24 16:18 FOLLOW-UP lorazepam Allergy NEEDS Verified 08/02/24 16:18 FOLLOW-UP NSAIDS (Non-Steroidal Allergy NEEDS Verified 08/02/24 16:18 Anti-Inflamma FOLLOW-UP Penicillins Allergy NEEDS Verified 08/02/24 16:18 FOLLOW-UP rofecoxib Allergy NEEDS Verified 08/02/24 16:18 FOLLOW-UP salicylates Allergy NEEDS Verified 08/02/24 16:18 FOLLOW-UP temazepam Allergy NEEDS Verified 08/02/24 16:18 FOLLOW-UP Tetracyclines Allergy NEEDS Verified 08/02/24 16:18 FOLLOW-UP trazodone Allergy NEEDS Verified 08/02/24 16:18 FOLLOW-UP mushroom (mushrooms) AdvReac Food Unverified 08/02/24 16:18 Allergy Surgical History Presence of aortocoronary bypass graft Social History Smoking Status: Never smoker ROS ROS ED ROS Narrative Constitutional: Denies fevers, chills, headaches Eyes: Denies change in vision double vision blurry vision Cardiovascular: Denies chest pain Respiratory: Complains of shortness of breath denies coughing Abdomen: Denies abdominal pain nausea vomiting diarrhea : Denies urinary symptoms Neurological: Denies any numbness, wheeze, tingling Musculoskeletal: Denies back pain Skin: Denies any rashes or lesions EXAM Physical Exam Narrative Exam Narrative: General: Patient was lying in bed rest comfortably did not appear to be acute distress Head: Atraumatic, normocephalic Eyes: PERRL bilaterally, EOMI bilateral, no conjunctival injection noted Neck: Soft, supple, trachea midline Cardiovascular: Regular rate and rhythm Respiratory: Clear to auscultation bilaterally Abdomen: Soft, nondistended, diffuse tenderness to palpation no rebound or guarding on exam Extremities: Radial pulses +2/4 in the bilateral extremities, +4/5 strength noted in the bilateral upper and lower extremities, no pedal edema exam Neurological: Patient following commands knew that she was at the hospital Skin: Warm, dry, tact no rashes lesions noted Const Vital Signs: 08/02/24 13:04 08/02/24 13:06 08/02/24 13:06 Temperature 99 F 98.6 F Temperature Source Oral Oral Pulse Rate 85 81 Respiratory Rate 16 14 Respiratory Effort Normal Respiratory Pattern Normal Blood Pressure 115/53 L 119/41 L Blood Pressure Mean 73 67 Pulse Ox 97 99 Oxygen Delivery Method Room Air Oxygen Flow Rate (L/min) 08/02/24 14:09 08/02/24 15:00 08/02/24 16:00 Temperature 98.7 F Temperature Source Oral Pulse Rate 86 80 82 Respiratory Rate 18 15 15 Respiratory Effort Respiratory Pattern Blood Pressure 114/65 101/63 114/57 L Blood Pressure Mean 81 75 76 Pulse Ox 98 99 98 Oxygen Delivery Method Room Air Nasal Cannula Nasal Cannula Oxygen Flow Rate (L/min) 2 2 MDM MDM MDM Narrative Medical decision making narrative: Patient is a 89-year-old female who presented to the emergency department the chief complaint of anemia. On the differential diagnose includes but not limited to iron deficiency anemia, GI bleed, bowel obstruction, ileus. Once workup is obtained reviewed she will be reevaluated. Patient's CBC was reviewed showed white blood count of 7.7, hemoglobin originally was noted to be 6.2 this was repeated is noted be 7.3 therefore bloodproducts were held, sodium normal 141, calcium normal 3.6, creatinine was noted be 0.83. Patient's AST and ALT were 36 and 25 respectively lipase normal at 21. Patient urinalysis showed no evidence of infection. Patient CT abdomen pelvis with IV contrast reviewed showed findings suggestive of status post gastric pull-through examination with the stomach in the right hemithorax. Distended urinary bladder minimal biliary ductal dilation. Rectal exam was performed she had black stool noted on exam this was Hemoccult positive she was given 40 mg IV Protonix. Will discuss case with hospitalist for admission for upper GI bleed concerns. Discussed case with hospitalist who accept patient for admission. Patient was notified as well as family at bedside all question concerns answered. Lab Data Labs: Laboratory Results - last 24 hr 08/02/24 08/02/24 13:55 14:55 WBC 7.7 RBC 2.11 L Hgb 7.3 L Hct 21.3 L MCV 100.9 H MCH 34.6 H MCHC 34.3 RDW Std Deviation 50.4 H RDW Coeff of Tamera 15.9 H Plt Count 263 MPV 8.9 Immature Gran % (Auto) 0.500 Neut % (Auto) 70.8 H Lymph % (Auto) 19.7 [place] % (Auto) 7.2 Eos % (Auto) 1.4 Baso % (Auto) 0.4 Absolute Neuts (auto) 5.4 Absolute Lymphs (auto) 1.51 Nucleated RBC % 0 Sodium 141 Potassium 3.6 Chloride 98 Carbon Dioxide 34.9 H Anion Gap 8 BUN 18 Creatinine 0.83 Estim Creat Clear Calc 33.65 L Est GFR (MDRD) Non-Af 68 BUN/Creatinine Ratio 21.5 H Glucose 114 H Calcium 9.7 Total Bilirubin 0.80 AST 36 H ALT 25 Alkaline Phosphatase 75 Total Protein 5.8 L Albumin 3.0 L Globulin 2.8 Albumin/Globulin Ratio 1.1 Lipase 21 Urine Color Straw Urine Clarity Clear Urine pH 7.0 Ur Specific [place] 1.010 Urine Protein Negative Urine Glucose (UA) Normal Urine Ketones Negative Urine Occult Blood Negative Urine Nitrite Negative Urine Bilirubin Negative Urine Urobilinogen Normal Ur Leukocyte Esterase Negative Urine RBC 0-5 SEEN Urine WBC 0-5 SEEN Ur Squamous Epith Cells 0-5 SEEN Urine Bacteria 0 SEEN Urine Mucus 0 SEEN Blood Type O POSITIVE Crossmatch See Detail Radiography Diagnostic Testing: Clinical Impression(s) from Imaging Studies Abdomen/Pelvis CT 08/02/24 14:09 IMPRESSION: 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 Distended urinary bladder. Minimal intrahepatic biliary ductal dilatation. Reading Location: [facility] Discharge Plan Triage Chief Complaint: Abn Labs Other Complaint: Confusion ED Provider: Jamie Beltrán Dx/Rx/DC Orders Clinical Impression: GI bleed, Anemia, Altered mental status Prescriptions: No Action Ensure Liquid 8 ml PO DAILY bupropion HCl 150 mg tablet extended release 24 hr 150 mg PO DAILY calcium carbonate [Calcium 500] 500 mg calcium (1,250 mg) tablet,chewable 500 mg PO DAILY doxazosin [Cardura] 2 mg tablet 2 mg PO DAILY Fiber Gummies 2 gram tablet,chewable 5 g PO DAILY fluticasone propionate [24 Hour [...] PO QHS 20 Days Qty: 30 2RF cetirizine 5 mg tablet 5 mg PO DAILY ferrous sulfate 325 mg (65 mg iron) tablet 325 mg PO DAILY Fiber Select Gummies 2-100 gram-mcg tablet,chewable PO Primary Care Provider: Kam Ocampo Sr. Referrals: Kam Ocampo Sr., DO [Primary Care Provider] - Print Language: Belgian Disposition Disposition: Acute Care Hospital [facility] What to do if you have Problems For any increased pain, shortness of breath, bleeding, nausea or vomiting, chestpain, or any unexpected problems, contact your Primary Care Provider. Call [facility] ([phone]) or report tothe closest Emergency Room. Call 911 if necessary. 08/02/24 1632 Cosigner Signature (if applicable): CC: Dr. Kam Ocampo Sr., DO ~ Signed [facility]06-24-2025 Radiology Diagnostic study note [facility] Imaging Services [address] [place], [place] [id number] Abdomen/Pelvis W IV Cont ONLY MR#: [id number] Acct: [id number] Name: KATHERINE JUDGE Rep #: [id number] : 1935 F 89 From: Reyes Haynes MD PCP: Dr. Kam Ocampo Sr., DO Status: R EG ER Study:Abdomen/Pelvis W IV Cont ONLY Date of E xam: 08/02/24 Exam# [id number] Ordering Dr: Hector Beltrán DO PROCEDURE: ABDOMEN/PELVIS W IV CONT ONLY 08/02/2024 REASON FOR EXAM: ABD PAIN, ANEMIA Confusion. TECHNIQUE: ABDOMEN/PELVIS W IV CONT ONLY Coronal and Sagittal reconstruction series were provided. CONTRAST: Isovue-300 VOLUME: 75 mL One or more dose reduction techniques were used (e.g., Automated exposure control, adjustment of the mA and/or kV according to patient size, use of iterative reconstruction technique. RADIATION DOSE SUMMARY: CTDlvol: 13 mGy DLP: 411.45 mGycm COMPARISON: None FINDINGS: Lung bases: Mild linear scarring at the lung bases worse on the right side. Midline sternotomy and coronary bypass surgery. Coronary artery calcification. The patient appears to have undergone a gastric pull-through surgical procedure with the the stomach in the lower right hemithorax. Liver: Diffuse fatty infiltration. Minimally dilated central intrahepatic biliary ducts. Gallbladder: Unremarkable. Spleen: Normal size. Pancreas: Diffuse fatty atrophy. Adrenals: Unremarkable Kidneys: Unremarkable Bladder: Distended urinary bladder. Reproductive Organs: Prior hysterectomy. Adnexal regions are unremarkable. Bowel: Colonic diverticulosis without diverticulitis. Appendix: Status post appendectomy. Lymph nodes: Unremarkable. Vasculature: Mild diffuse atherosclerotic calcifications are noted. Peritoneum / Retroperitoneum: Unremarkable Bones: Excessive lordosis of the lumbar spine. Almost complete collapse of the L1 vertebrae. Multilevel degenerative changes. 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 Distended urinary bladder. Minimal intrahepatic biliary ductal dilatation. Reading Location: [id number] CC: Dr. Kam Ocampo Sr., DO; Dr. Jamie Beltrán, DO ~ Patient Care Assistant: Signed [facility]06-24-2025 Radiology Diagnostic study note [facility] Imaging Services [address] [place] [address] Abdomen/Pelvis W IV Cont ONLY MR#: [id number] Acct: [id number] Name: KATHERINE JUDGE Rep #: [id number] : 1935 F 89 From: Reyes Haynes MD PCP: Dr. Kam Ocampo Sr., DO Status: A DM IN Study:Abdomen/Pelvis W IV Cont ONLY Date of E xam: 08/02/24 Exam# [id number] Ordering Dr: Hector Beltrán DO PROCEDURE: ABDOMEN/PELVIS W IV CONT ONLY 08/02/2024 REASON FOR EXAM: ABD PAIN, ANEMIA Confusion. TECHNIQUE: ABDOMEN/PELVIS W IV CONT ONLY Coronal and Sagittal reconstruction series were provided. CONTRAST: Isovue-300 VOLUME: 75 mL One or more dose reduction techniques were used (e.g., Automated exposure control, adjustment of the mA and/or kV according to patient size, use of iterative reconstruction technique. RADIATION DOSE SUMMARY: CTDlvol: 13 mGy DLP: 411.45 mGycm COMPARISON: None FINDINGS: Lung bases: Mild linear scarring at the lung bases worse on the right side. Midline sternotomy and coronary bypass surgery. Coronary artery calcification. The patient appears to have undergone a gastric pull-through surgical procedure with the the stomach in the lower right hemithorax. Liver: Diffuse fatty infiltration. Minimally dilated central intrahepatic biliary ducts. Gallbladder: Unremarkable. Spleen: Normal size. Pancreas: Diffuse fatty atrophy. Adrenals: Unremarkable Kidneys: Unremarkable Bladder: Distended urinary bladder. Reproductive Organs: Prior hysterectomy. Adnexal regions are unremarkable. Bowel: Colonic diverticulosis without diverticulitis. Appendix: Status post appendectomy. Lymph nodes: Unremarkable. Vasculature: Mild diffuse atherosclerotic calcifications are noted. Peritoneum / Retroperitoneum: Unremarkable Bones: Excessive lordosis of the lumbar spine. Almost complete collapse of the L1 vertebrae. Multilevel degenerative changes. 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 Distended urinary bladder. Minimal intrahepatic biliary ductal dilatation. Reading Location: [facility] CC: Dr. Kam Ocampo Sr., ; Dr. Jamie Beltrán DO ~ Patient Care Assistant: Signed [facility]06-24-2025 Discharge summary Author Jamie Beltrán [facility] Note Date/Time August 02, 2024 4:32 pm [facility] Medical Records Department [address] [place] [address] Emergency Department Summary 08/02/24 MR#: [id number] Acct: [id number] Name: KATHERINE JUDGE Rep #:[id number] : 1935 89 From: Jamie Beltrán DO PCP: Dr. Kam Ocampo Sr., DO Status:R EG ER Location: ED HPI History of Present Illness Chief Complaint: Abn Labs Narrative Narrative: Patient is a 81-year-old female with past medical history of TIA, hypertension, hypertension who presented to the emergency department with concern for low hemoglobin. According to the son at bedside she has also been more confused lately. She had a hip replacement done on the right side about a week ago and had been doing well. They state that she has a chronic iron deficiency as well and had given her iron replacement while in the hospital last time. [facility] Medical History TIA (transient ischemic attack) Personal history of other diseases of digestive system Noninfective gastroenteritis and colitis, unspecified Essential hypertension Diaphragmatic hernia without obstruction or gangrene Constipation, unspecified Atherosclerotic heart disease of [place] coronary artery without angina pectoris Other specified disorders of white blood cells Other lack of coordination Hyperthyroidism Gout, unspecified Difficulty in walking, not elsewhere classified Depression, unspecified Calculus of gallbladder and bile duct without cholecystitis without obstruction Age-related physical debility Hypertension Home Medications ?Medication ?Instructions ?Recorded ?Last Taken ?Type Lactobacillus-Bifidobacterium 30 1 cap PO DAILY Unknown History billion cell capsule,delayed release (Ultimate [place] Probiotic) acetaminophen 325 mg capsule 500 mg PO BID 10/30/22 Un known History (Tylenol) azelastine 137 mcg (0.1 %) nasal 1 spray intranasal BI D 10/30/22 Unknown History spray bupropion HCl 150 mg 24 hr tablet, 150 mg PO DAILY Unknown History extended release calcium carbonate (Calcium 500) 500 mg PO DAILY Unknown History dicyclomine 10 mg capsule 10 mg PO Q6H 10/30/22 Unknow n History doxazosin 2 mg tablet (Cardura) 2 mg PO DAILY 10/30/22 10/30/22 History fluticasone propionate 50 1 spray intranasal DAILY Unknown History mcg/actuation nasal spray,suspension (24 Hour Allergy Relief) food supplemt, lactose-reduced 8 ml PO DAILY 10/30/22 Unknown History (Ensure oral liquid) gabapentin 600 mg tablet 600 mg PO BID 10/30/22 Unkno wn History guaifenesin 100 mg/5 mL oral 200 mg PO Q8 10/30/22 Unk nown History liquid (Chest Congestion Relief) inulin 2 gram chewable tablet 5 g PO DAILY 10/30/22 Un known History (Fiber Gummies) isosorbide mononitrate 30 mg 30 mg PO DAILY 10/30/22 U nknown History tablet,extended release 24 hr metoprolol tartrate 25 mg tablet 25 mg PO BID 10/30/22 Unknown History mirtazapine 30 mg tablet 30 mg PO QHS 10/30/22 Unknow n History montelukast 10 mg tablet 10 mg PO QHS 10/30/22 Unknow n History multivitamin (Daily Multi-Vitamin 1 tab PO DAILY 10/30 Unknown History tablet) pantoprazole 40 mg tablet,delayed 40 mg PO DAILY 10/30 Unknown History release potassium chloride 20 mEq 20 meq PO DAILY 10/30/22 Unk nown History tablet,extended release (K-Tab) atorvastatin 40 mg tablet 40 mg PO QHS 20 days #30 tab s 11/02/22 Unknown Rx cetirizine 5 mg tablet 5 mg PO DAILY 08/02/24 Unkno wn History ferrous sulfate 325 mg (65 mg 325 mg PO DAILY 08/02/24 Unknown History iron) tablet inulin-chromium picolinate 2 tab PO 08/02/24 Unknown H istory gram-100 mcg chewable tablet (Fiber Select Gummies) Allergy/AdvReac Type Severity Reaction Status Date / Time cephalexin Allergy NEEDS Verified 08/02/24 16:18 FOLLOW-UP clarithromycin Allergy NEEDS Verified 08/02/24 16:18 FOLLOW-UP clindamycin Allergy NEEDS Verified 08/02/24 16:18 FOLLOW-UP doxazosin Allergy NEEDS Verified 11/06/22 16:25 FOLLOW-UP erythromycin base Allergy NEEDS Verified 08/02/24 16:18 FOLLOW-UP eszopiclone Allergy NEEDS Verified 08/02/24 16:18 FOLLOW-UP Fish Containing Products Allergy NEEDS Verified 08/02/24 16:18 FOLLOW-UP fish derived Allergy NEEDS Verified 08/02/24 16:18 FOLLOW-UP lincomycin Allergy NEEDS Verified 08/02/24 16:18 FOLLOW-UP lorazepam Allergy NEEDS Verified 08/02/24 16:18 FOLLOW-UP NSAIDS (Non-Steroidal Allergy NEEDS Verified 08/02/24 16:18 Anti-Inflamma FOLLOW-UP Penicillins Allergy NEEDS Verified 08/02/24 16:18 FOLLOW-UP rofecoxib Allergy NEEDS Verified 08/02/24 16:18 FOLLOW-UP salicylates Allergy NEEDS Verified 08/02/24 16:18 FOLLOW-UP temazepam Allergy NEEDS Verified 08/02/24 16:18 FOLLOW-UP Tetracyclines Allergy NEEDS Verified 08/02/24 16:18 FOLLOW-UP trazodone Allergy NEEDS Verified 08/02/24 16:18 FOLLOW-UP mushroom (mushrooms) AdvReac Food Unverified 08/02/24 16:18 Allergy Surgical History Presence of aortocoronary bypass graft Social History Smoking Status: Never smoker ROS ROS ED ROS Narrative Constitutional: Denies fevers, chills, headaches Eyes: Denies change in vision double vision blurry vision Cardiovascular: Denies chest pain Respiratory: Complains of shortness of breath denies coughing Abdomen: Denies abdominal pain nausea vomiting diarrhea : Denies urinary symptoms Neurological: Denies any numbness, wheeze, tingling Musculoskeletal: Denies back pain Skin: Denies any rashes or lesions EXAM Physical Exam Narrative Exam Narrative: General: Patient was lying in bed rest comfortably did not appear to be acute distress Head: Atraumatic, normocephalic Eyes: PERRL bilaterally, EOMI bilateral, no conjunctival injection noted Neck: Soft, supple, trachea midline Cardiovascular: Regular rate and rhythm Respiratory: Clear to auscultation bilaterally Abdomen: Soft, nondistended, diffuse tenderness to palpation no rebound or guarding on exam Extremities: Radial pulses +2/4 in the bilateral extremities, +4/5 strength noted in the bilateral upper and lower extremities, no pedal edema exam Neurological: Patient following commands knew that she was at the hospital Skin: Warm, dry, tact no rashes lesions noted Const Vital Signs: 08/02/24 13:04 08/02/24 13:06 08/02/24 13:06 Temperature 99 F 98.6 F Temperature Source Oral Oral Pulse Rate 85 81 Respiratory Rate 16 14 Respiratory Effort Normal Respiratory Pattern Normal Blood Pressure 115/53 L 119/41 L Blood Pressure Mean 73 67 Pulse Ox 97 99 Oxygen Delivery Method Room Air Oxygen Flow Rate (L/min) 08/02/24 14:09 08/02/24 15:00 08/02/24 16:00 Temperature 98.7 F Temperature Source Oral Pulse Rate 86 80 82 Respiratory Rate 18 15 15 Respiratory Effort Respiratory Pattern Blood Pressure 114/65 101/63 114/57 L Blood Pressure Mean 81 75 76 Pulse Ox 98 99 98 Oxygen Delivery Method Room Air Nasal Cannula Nasal Cannula Oxygen Flow Rate (L/min) 2 2 MDM MDM MDM Narrative Medical decision making narrative: Patient is a 89-year-old female who presented to the emergency department the chief complaint of anemia. On the differential diagnose includes but not limited to iron deficiency anemia, GI bleed, bowel obstruction, ileus. Once workup is obtained reviewed she will be reevaluated. Patient's CBC was reviewed showed white blood count of 7.7, hemoglobin originally was noted to be 6.2 this was repeated is noted be 7.3 therefore bloodproducts were held, sodium normal 141, calcium normal 3.6, creatinine was noted be 0.83. Patient's AST and ALT were 36 and 25 respectively lipase normal at 21. Patient urinalysis showed no evidence of infection. Patient CT abdomen pelvis with IV contrast reviewed showed findings suggestive of status post gastric pull-through examination with the stomach in the right hemithorax. Distended urinary bladder minimal biliary ductal dilation. Rectal exam was performed she had black stool noted on exam this was Hemoccult positive she was given 40 mg IV Protonix. Will discuss case with hospitalist for admission for upper GI bleed concerns. Discussed case with hospitalist who accept patient for admission. Patient was notified as well as family at bedside all question concerns answered. Lab Data Labs: Laboratory Results - last 24 hr 08/02/24 08/02/24 13:55 14:55 WBC 7.7 RBC 2.11 L Hgb 7.3 L Hct 21.3 L MCV 100.9 H MCH 34.6 H MCHC 34.3 RDW Std Deviation 50.4 H RDW Coeff of Tamera 15.9 H Plt Count 263 MPV 8.9 Immature Gran % (Auto) 0.500 Neut % (Auto) 70.8 H Lymph % (Auto) 19.7 [place] % (Auto) 7.2 Eos % (Auto) 1.4 Baso % (Auto) 0.4 Absolute Neuts (auto) 5.4 Absolute Lymphs (auto) 1.51 Nucleated RBC % 0 Sodium 141 Potassium 3.6 Chloride 98 Carbon Dioxide 34.9 H Anion Gap 8 BUN 18 Creatinine 0.83 Estim Creat Clear Calc 33.65 L Est GFR (MDRD) Non-Af 68 BUN/Creatinine Ratio 21.5 H Glucose 114 H Calcium 9.7 Total Bilirubin 0.80 AST 36 H ALT 25 Alkaline Phosphatase 75 Total Protein 5.8 L Albumin 3.0 L Globulin 2.8 Albumin/Globulin Ratio 1.1 Lipase 21 Urine Color Straw Urine Clarity Clear Urine pH 7.0 Ur Specific [place] 1.010 Urine Protein Negative Urine Glucose (UA) Normal Urine Ketones Negative Urine Occult Blood Negative Urine Nitrite Negative Urine Bilirubin Negative Urine Urobilinogen Normal Ur Leukocyte Esterase Negative Urine RBC 0-5 SEEN Urine WBC 0-5 SEEN Ur Squamous Epith Cells 0-5 SEEN Urine Bacteria 0 SEEN Urine Mucus 0 SEEN Blood Type O POSITIVE Crossmatch See Detail Radiography Diagnostic Testing: Clinical Impression(s) from Imaging Studies Abdomen/Pelvis CT 08/02/24 14:09 IMPRESSION: 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 Distended urinary bladder. Minimal intrahepatic biliary ductal dilatation. Reading Location: [facility] Discharge Plan Triage Chief Complaint: Abn Labs Other Complaint: Confusion ED Provider: Jamie Beltrán Dx/Rx/DC Orders Clinical Impression: GI bleed, Anemia, Altered mental status Prescriptions: No Action Ensure Liquid 8 ml PO DAILY bupropion HCl 150 mg tablet extended release 24 hr 150 mg PO DAILY calcium carbonate [Calcium 500] 500 mg calcium (1,250 mg) tablet,chewable 500 mg PO DAILY doxazosin [Cardura] 2 mg tablet 2 mg PO DAILY Fiber Gummies 2 gram tablet,chewable 5 g PO DAILY fluticasone propionate [24 Hour [...] PO QHS 20 Days Qty: 30 2RF cetirizine 5 mg tablet 5 mg PO DAILY ferrous sulfate 325 mg (65 mg iron) tablet 325 mg PO DAILY Fiber Select Gummies 2-100 gram-mcg tablet,chewable PO Primary Care Provider: Terrence Addison,Kam Referrals: Terrence Addison,Kam, DO [Primary Care Provider] - Print Language: Belgian Disposition Disposition: Acute Care Hospital [facility] What to do if you have Problems For any increased pain, shortness of breath, bleeding, nausea or vomiting, chestpain, or any unexpected problems, contact your Primary Care Provider. Call [facility] ([phone]) or report to the closest Emergency Room. Call 911 if necessary. 08/02/24 1632 <Electronically signed by Jamie Beltrán DO> Cosigner Signature (if applicable): CC: Dr. Kam Ocampo Sr., ~ Signed [facility] Work Phone: 1(829) 492-381006-19-2025 Progress note [facility] Medical Records Department [address] [place] [address] Progress Note - Orthopedic 07/28/24 0708 MR#: [id number] Acct: [id number] Name: KATHERINE JUDGE Rep #:[id number] : 1935 89 From: Thanh Mclaughlin DO PCP: Dr. Kam Ocampo Sr., DO Status:A DM IN Location: ME3 XJ400-7 Subjective Subjective Seen and examined. Pain is [...] PT OT weightbearing as tolerated SCDs [address] Eliquis 2.5 mg twice daily for 3 [...] check Orthopedically stable for discharge 07/28/24 0708 Cosigner Signature (if applicable): CC: ~ Signed [facility]06-19-2025 Discharge summary Author Neymar Cunningham [facility] Note Date/Time July 28, 2024 11:3 0am [facility] Medical Records Department [address] [place] [address] Discharge Summary 07/28/24 1128 MR#: [id number] Acct: [id number] Name: UNKATHERINE Wilber Rep #:[id number] : 1935 89 From: Neymar Herrera PCP: Dr. Kam Ocampo Sr., Status:A DM IN Location: [place] 538156-1 Providers Date of Admission: 07/25/24 Date of Discharge: 07/28/24 Primary Care Physician: Dr. Kam Ocampo Sr., Consultations 07/25/24 18:26 Consult: Orthopedics Routine Consulting [...] is an 89-year-old female who presented to [facility] ED on 07/25/2024 with right hip pain after a mechanical fall. 1. Acute debility due to right hip nondisplaced intertrochanteric fracture: Patient is being admitted on [facility] floor. Hip and pelvis x-rays reviewed and [...] Patient on home oxygen as needed in longterm but required 4 L at time of [...] CBC and BMP in 1 week in longterm. Preoperative evaluation ? NSQIP score: Patient is [...] PT/OT/case management consulted as above. Lives in [facility], will likely be okay to return there [...] of the proximal right femur. Reading Location: [facility]-1 Chest X-Ray 07/25/24 15:15 IMPRESSION: Cardiomegaly and vascular congestion with atelectasis at the lung bases. Reading Location: [facility]-1 Femur X-Ray 07/25/24 17:40 IMPRESSION: Nondisplaced intertrochanteric fracture. Reading Location: [id number] Echocardiogram 07/25/24 22:20 Interpretation Summary Hypermobile atrial [...] 0.5 mg/2 mL suspension for nebulization mg scleroscope tester 07/25/24 bupropion HCl 150 mg 24 hr [...] % (Auto) 65.7, Lymph % (Auto) 25.1, [place] % (Auto) 5.8, Eos % (Auto) 2.9, [...] in before D/C Order can be placed): [facility] Charges/Coding Visit Charges Inpatient E&M: 21694 Disch Hosp >30min 07/28/24 1130 <Electronically signed by Neymar Cunningham MD> Cosigner Signature (if applicable): CC: Dr. Kam Ocampo Sr., DO; Dr. Neymar Cunningham MD~ Signed [facility] Work Phone: 1(401) 344-800206-19-2025 Discharge summary Author Neymar Cunningham [facility] Note Date/Time July 28, 2024 11:2 8am [facility] Medical Records Department [address] [place] [address] Transfer to [facility] MR#: [id number] Acct: [id number] Name: KATHERINE JUDGE Rep #:[id number] : 1935 89 From: Neymar Herrera PCP: [...] PRIOR TO HIS/HER TRANSFER TO THE [facility]. 07/28/24 1128<Electronically signed by Neymar Cunningham MD> [...] is an 89-year-old female who presented to [facility] ED on 07/25/2024 with right hip pain after a mechanical fall. 1. Acute debility due to right hip nondisplaced intertrochanteric fracture: Patient is being admitted on [facility] floor. Hip and pelvis x-rays reviewed and [...] Patient on home oxygen as needed in longterm but required 4 L at time of [...] PT/OT/case management consulted as above. Lives in [facility], will likely be okay to return there [...] of the proximal right femur. Reading Location: [facility]-IR-1 Chest X-Ray 07/25/24 15:15 IMPRESSION: Cardiomegaly and vascular congestion with atelectasis at the lung bases. Reading Location: [facility]-1 Femur X-Ray 07/25/24 17:40 IMPRESSION: Nondisplaced intertrochanteric fracture. Reading Location: [id number] Echocardiogram 07/25/24 22:20 Interpretation Summary Hypermobile atrial [...] in before D/C Order can be placed): [facility] (1) Closed intertrochanteric fracture of right hip Qualifiers: Encounter type: initial encounter Fracture alignment: displaced Qualified Code(s): S72.141A - Displaced intertrochanteric fracture of right femur, initialencounter for closed fracture 07/28/241127 <Electronically signed by Neymar Cunningham MD> Cosigner Signature (if applicable): CC: Dr. Hayden Diaz DO; Dr. Kam Ocampo Sr., DO; Dr. Thanh Mclaughlin DO ~ [facility] Work Phone: 1(527) 636-538006-19-2025 Discharge summary [facility] Medical Records Department [address] [place] [address] Discharge Summary 07/28/24 1128 MR#: [id number] Acct: [id number] Name: NUKATHERINE Wilber Rep #:[id number] : 1935 89 From: Neymar Herrera PCP: Dr. Kam Ocampo Sr., DO Status:A DM IN Location: [facility] [place] TQ685-1 Providers Date of Admission: 07/25/24 Date of [...] is an 89-year-old female who presented to [facility] ED on 07/25/2024 with right hip pain after a mechanical fall. 1. Acute debility due to right hip nondisplaced intertrochanteric fracture: [facility] Hip and pelvis x-rays reviewed and [...] Patient on home oxygen as needed in longterm but required 4 L at time of [...] CBC and BMP in 1 week in longterm. Preoperative evaluation ? NSQIP score: Patient is [...] PT/OT/case management consulted as above. Lives in [facility], will likely be okay to return there [...] of the proximal right femur. Reading Location: [facility]-1 Chest X-Ray 07/25/24 15:15 IMPRESSION: Cardiomegaly and vascular congestion with atelectasis at the lung bases. Reading Location: [facility]-1 Femur X-Ray 07/25/24 17:40 IMPRESSION: Nondisplaced intertrochanteric fracture. Reading Location: [id number] Echocardiogram 07/25/24 22:20 Interpretation Summary Hypermobile atrial [...] 0.5 mg/2 mL suspension for nebulization mg scleroscope tester 07/25/24 bupropion HCl 150 mg 24 hr [...] % (Auto) 65.7, Lymph % (Auto) 25.1, [place] % (Auto) 5.8, Eos % (Auto) 2.9, [...] in before D/C Order can be placed): [facility] Charges/Coding Visit Charges Inpatient E&M: 64457 Disch Hosp >30min 07/28/24 1130 Cosigner Signature (if applicable): CC: Dr. Kam Ocampo Sr., DO; Dr. Neymar Cunningham MD~ Signed [facility]06-19-2025 Discharge summary [facility] Medical Records Department [address] [place] [address] Transfer to [facility] MR#: [id number] Acct: [id number] Name: KATHERINE JUDGE Wilber Rep #:[id number] : 1935 89 From: Neymar Herrera PCP: [...] SERVICES PRIOR TO HIS/HER TRANSFER TO THE [facility]. 07/28/24 1128 Diet Diet Order/Speech Therapy: INPATIENT [...] is an 89-year-old female who presented to [facility] ED on 07/25/2024 with right hip pain after a mechanical fall. 1. Acute debility due to right hip nondisplaced intertrochanteric fracture: Patient is being admitted on [facility] floor. Hip and pelvis x-rays reviewed and [...] Patient on home oxygen as needed in longterm but required 4 L at time of [...] PT/OT/case management consulted as above. Lives in [facility], will likely be okay to return there [...] of the proximal right femur. [facility] Chest X-Ray 07/25/24 15:15 IMPRESSION: Cardiomegaly and vascular congestion with atelectasis at the lung bases. [facility] Fem[facility] X-Ray 07/25/24 17:40 IMPRESSION: Nondisplaced intertrochanteric fracture. Reading Location: [id number] Echocardiogram 07/25/24 22:20 Interpretation Summary Hypermobile atrial [...] in before D/C Order can be placed): [facility] (1) Closed intertrochanteric fracture of right hip Qualifiers: Encounter type: initial encounter Fracture alignment: displaced Qualified Code(s): S72.141A - Displaced intertrochanteric fracture of right femur, initialencounter for closed fracture 07/28/24 1128 Cosigner Signature (if applicable): CC: Dr. Hayden Diaz DO; Dr. Kam Ocampo Sr., DO; Dr. Thanh Mclaughlin DO ~ [facility]06-19-2025 [facility]06-19-2025 Progress note Author Neyamr Cunningham [facility] Note Date/Time July 28, 2024 8:00 am [facility] Medical Records Department [address] [place] [address] Progress Note - Hospitalist 07/28/24 0753 MR#: [id number] Acct: [id number] Name: KATHERINE JUDGE Rep #:[id number] : 1935 89 From: Neymar Herrera PCP: Dr. aKm Ocampo SrLeigh, DO Status:A DM IN Location: [place] [address]-1 Reason for Visit Reason for Visit: Diagnoses [...] % (Auto) 65.7, Lymph % (Auto) 25.1, [place] % (Auto) 5.8, Eos % (Auto) 2.9, [...] states that she uses oxygen as needed longterm. Uses CPAP diligently at night Blood pressure [...] is an 89-year-old female who presented to [facility] ED on 07/25/2024 with right hip pain after a mechanical fall. 1. Acute debility due to right hip nondisplaced intertrochanteric fracture: [facility]. Hip and pelvis x-rays reviewed and [...] Patient on home oxygen as needed in longterm but required 4 L at time of [...] PT/OT/case management consulted as above. Lives in [facility], will likely be okay to return there [...] of the proximal right femur. Reading Location: [facility]1 Chest X-Ray 07/25/24 15:15 IMPRESSION: Cardiomegaly and vascular congestion with atelectasis at the lung bases. Reading Location: [facility]1 Femur X-Ray 07/25/24 17:40 IMPRESSION: Nondisplaced intertrochanteric fracture. Reading Location: [id number] Echocardiogram 07/25/24 22:20 Interpretation Summary Hypermobile atrial septum. Normal LV size. Left ventricular systolic function is normal. The left ventricular ejection fraction is 70 %. Stage 1 diastolic dysfunction. Mild-Moderate (1-2+) anteriorly directed mitral valve insufficiency. Posterior leaflet mitral valve prolapse. Moderate pulmonary hypertension. Charges/Coding Visit Charges Inpatient E&M: 40468 Subs Hosp L2 07/28/24 0800 <Electronically signed by Neymar Cunningham MD> Cosigner Signature (if applicable): CC: ~ Signed [facility] Work Phone: 1(129) 761-217206-19-2025 Progress note Author Thanh Mclaughlin [facility] Note Date/Time July 28, 2024 3:45 pm [facility] Medical Records Department [address] [place] [address] Progress Note - Orthopedic 07/28/24 0708 MR#: [id number] Acct: [id number] Name: KATHERINE JUDGE Rep #:[id number] : 1935 89 From: Thanh Mclaughlin DO PCP: Dr. Kam Ocampo Sr., DO Status:A DM IN Location: [place] [address] Subjective Subjective Seen and examined. Pain is [...] Cosigner Signature (if applicable): CC: ~ Signed [facility] Work Phone: 1(652) 825-972906-19-2025 Progress note [facility] Medical Records Department [address] [place] [address] Progress Note - Hospitalist 07/28/24 0753 MR#: [id number] Acct: [id number] Name: KATHERINE JUDGE Wilber Rep #:[id number] : 1935 89 From: Neymar Herrera PCP: Dr. Kam Ocampo SrLeigh, DO Status:A DM IN Location: [place] [address] Reason for Visit Reason for Visit: Diagnoses [...] % (Auto) 65.7, Lymph % (Auto) 25.1, [place] % (Auto) 5.8, Eos % (Auto) 2.9, [...] states that she uses oxygen as needed longterm. Uses CPAP diligently at night Blood pressure [...] is an 89-year-old female who presented to [facility] ED on 07/25/2024 with right hip pain after a mechanical fall. 1. Acute debility due to right hip nondisplaced intertrochanteric fracture: [facility]. Hip and pelvis x-rays reviewed and [...] Patient on home oxygen as needed in longterm but required 4 L at time of [...] PT/OT/case management consulted as above. Lives in [facility], will likely be okay to return there [...] of the proximal right femur. Reading Location: [facility]- Chest X-Ray 07/25/24 15:15 IMPRESSION: Cardiomegaly and vascular congestion with atelectasis at the lung bases. Reading Location: [facility]-1 Femur X-Ray 07/25/24 17:40 IMPRESSION: Nondisplaced intertrochanteric fracture. Reading Location: [id number] Echocardiogram 07/25/24 22:20 Interpretation Summary Hypermobile atrial septum. Normal LV size. Left ventricular systolic function is normal. The left ventricular ejection fraction is 70 %. Stage 1 diastolic dysfunction. Mild-Moderate (1-2+) anteriorly directed mitral valve insufficiency. Posterior leaflet mitral valve prolapse. Moderate pulmonary hypertension. Charges/Coding Visit Charges Inpatient E&M: 28994 Subs Hosp L2 07/28/24 0800 Cosigner Signature (if applicable): CC: ~ Signed [facility]06-18-2025 Progress note Author Neymar Cunningham [facility] Note Date/Time July 27, 2024 5:50 pm [facility] Medical Records Department [address] [place] [address] Progress Note - Hospitalist 07/27/24 1746 MR#: [id number] Acct: [id number] Name: KATHERINE JUDGE Wilber Rep #:[id number] : 1935 89 From: Neymar Herrera PCP: Dr. Kam Ocampo Sr., DO Status:A DM IN Location: [facility] [place] PZ174-5 Reason for Visit Reason for Visit: Diagnoses [...] 88.1 H, Lymph % (Auto) 8.5 L, [place] % (Auto) 2.9, Eos % (Auto) 0.0, [...] 07/26/24 15:09 IMPRESSION: As above. Reading Location: [place] [address] Physical Exam Narrative Seen and examined. Patient had right hip surgery yesterday. Doing well, sitting up in the chair. On 2 L of oxygen. Denies shortness of breath. Patient states that she uses oxygen as needed longterm. Uses CPAP diligently at night Blood pressure [...] is an 89-year-old female who presented to [facility] ED on 07/25/2024 with right hip pain after a mechanical fall. 1. Acute debility due to right hip nondisplaced intertrochanteric fracture: Patient is being admitted on [facility] floor. Hip and pelvis x-rays reviewed and [...] Patient on home oxygen as needed in longterm but required 4 L at time of [...] PT/OT/case management consulted as above. Lives in [facility], will likely be okay to return there [...] of the proximal right femur. Reading Location: [facility]-1 Chest X-Ray 07/25/24 15:15 IMPRESSION: Cardiomegaly and vascular congestion with atelectasis at the lung bases. Reading Location: [facility]-1 Femur X-Ray 07/25/24 17:40 IMPRESSION: Nondisplaced intertrochanteric fracture. Reading Location: [id number] Echocardiogram 07/25/24 22:20 Interpretation Summary Hypermobile atrial septum. Normal LV size. Left ventricular systolic function is normal. The left ventricular ejection fraction is 70 %. Stage 1 diastolic dysfunction. Mild-Moderate (1-2+) anteriorly directed mitral valve insufficiency. Posterior leaflet mitral valve prolapse. Moderate pulmonary hypertension. Charges/Coding Visit Charges Inpatient E&M: 84531 Subs Hosp L2 07/27/24 1750 <Electronically signed by Neymar Cunningham MD> Cosigner Signature (if applicable): CC: ~ Signed [facility] Work Phone: 1(603) 556-804006-18-2025 Progress note [facility] Medical Records Department [address] [place] [address] Progress Note - Hospitalist 07/27/24 1746 MR#: [id number] Acct: [id number] Name: KATHERINE JUDGE Wilber Rep #:[id number] : 1935 89 From: Neymar Herrera PCP: Dr. Kam Ocampo SrLeigh, DO Status:A DM IN Location: ME3 [id number] Reason for Visit Reason for Visit: Diagnoses [...] 88.1 H, Lymph % (Auto) 8.5 L, [place] % (Auto) 2.9, Eos % (Auto) 0.0, [...] 07/26/24 15:09 IMPRESSION: As above. Reading Location: [place] [address] Physical Exam Narrative Seen and examined. Patient had right hip surgery yesterday. Doing well, sitting up in the chair. On 2 L of oxygen. Denies shortness of breath. Patient states that she uses oxygen as needed longterm. Uses CPAP diligently at night Blood pressure [...] is an 89-year-old female who presented to [facility] ED on 07/25/2024 with right hip pain after a mechanical fall. 1. Acute debility due to right hip nondisplaced intertrochanteric fracture: [facility]. Hip and pelvis x-rays reviewed and [...] Patient on home oxygen as needed in longterm but required 4 L at time of [...] PT/OT/case management consulted as above. Lives in [facility], will likely be okay to return there [...] of the proximal right femur. Reading Location: [facility]-1 Chest X-Ray 07/25/24 15:15 IMPRESSION: Cardiomegaly and vascular congestion with atelectasis at the lung bases. Reading Location: [facility]- Femur X-Ray 07/25/24 17:40 IMPRESSION: Nondisplaced intertrochanteric fracture. Reading Location: [id number] Echocardiogram 07/25/24 22:20 Interpretation Summary Hypermobile atrial septum. Normal LV size. Left ventricular systolic function is normal. The left ventricular ejection fraction is 70 %. Stage 1 diastolic dysfunction. Mild-Moderate (1-2+) anteriorly directed mitral valve insufficiency. Posterior leaflet mitral valve prolapse. Moderate pulmonary hypertension. Charges/Coding Visit Charges Inpatient E&M: 35402 Subs Hosp L2 07/27/24 1750 Cosigner Signature (if applicable): CC: ~ Signed [facility]06-18-2025 Progress [facility] Note Date/Time July 27, 2024 1:28 pm [facility] Medical Records Department [address] [place] [address] Progress Note - Orthopedic 07/27/24 1326 MR#: [id number] Acct: [id number] Name: KATHERINE JUDGE Rep #:[id number] : 1935 89 From: Thanh Mclaughlin DO PCP: Dr. Kam Ocampo Sr., DO Status:A DM IN Location: MS3 XC346-4 Subjective Subjective Patient seen and examined. She [...] 88.1 H, Lymph % (Auto) 8.5 L, [place] % (Auto) 2.9, Eos % (Auto) 0.0, [...] 07/26/24 15:09 IMPRESSION: As above. Reading Location: [place] [address] Physical Exam Const alert, oriented x3 and [...] Cosigner Signature (if applicable): CC: ~ Signed [facility] Work Phone: 1(903) 958-780706-18-2025 Progress note [facility] Medical Records Department [address] [place] [address] Progress Note - Orthopedic 07/27/24 1326 MR#: [id number] Acct: [id number] Name: KATHERINE JUDGE Rep #:[id number] : 1935 89 From: Thanh Mclaughlin DO PCP: Dr. Kam Ocampo Sr., DO Status:A DM IN Location: [facility] [place] XC494-0 Subjective Subjective Patient seen and examined. She [...] 88.1 H, Lymph % (Auto) 8.5 L, [place] % (Auto) 2.9, Eos % (Auto) 0.0, [...] 07/26/24 15:09 IMPRESSION: As above. Reading Location: [place] [address] Physical Exam Const alert, oriented x3 and [...] PT OT weightbearing as tolerated SCDs [address] Eliquis 2.5 mg twice daily for 3 [...] Cosigner Signature (if applicable): CC: ~ Signed [facility]06-17-2025 Radiology Diagnostic study note [facility] Imaging Services [address] [place], [place] [address] Hip Min 2 Views (Portable) MR#: [id number] Acct: [id number] Name: KATHERINE JUDGE Rep #: [id number] : 1935 F 89 From: Brannon Bland MD PCP: Dr. Kam Ocampo Sr., Status: A DM IN Study:Hip Min 2 Views (Portable) Date of Exam : 07/26/24 Exam# [id number] Ordering Dr: Thanh Mclaughlin DO PROCEDURE: HIP MIN 2 VIEWS (PORTABLE) 07/26/2024 REASON FOR EXAM: FX REPAIR IN OR TECHNIQUE: Fluoroscopic images of the right hip. COMPARISON: 07/25/2024. FINDINGS: Fluoroscopic images for ORIF of a intertrochanteric right femoral fracture. Fluoroscopic time of 44.2 seconds. 4.90 mGy. See procedure report for full details. RAD/Hip Min 2 Views (Portable) IMPRESSION: As above. Reading Location: [id number] CC: Dr. Kam Ocampo Sr., DO; Dr. Thanh Mclaughlin DO ~ Patient Care Assistant: Signed [facility]06-17-2025 Consult note Author Rocky Sidhu [facility] Note Date/Time July 26, 2024 6:[address] [facility] Medical Records Department [address] [place] [address] Anesthesia Postop Eval II 07/26/241842 MR#: [id number] Acct: [id number] Name: KATHERINE JUDGE Rep #:[id number] : 1935 89 From: Rocky Sidhu MD PCP: Dr. Kam Ocampo Sr., DO Status:A DM IN Y Race: C Location: [place] [address] -1 Anesthesia Postop Eval I Sum Postop Eval Completion status Anesthesia document: Postop Eval 1 completed: Yes Anesthesia Postop Eval I Summary Anesthesia Postop Eval I Summary: Anesthesia Postop Eval I: Assessment Summary Airway patent Yes 07/26/24 18:33 DIALYSIS NURSE.DBAK Spontaneous unlabored Yes 07/26/24 18:33 DIALYSIS NURSE.DBAK respirations Mental status Awake 07/26/24 18:33 DIALYSIS NURSE.DBAK nausea No 07/26/24 18:33 DIALYSIS NURSE.DBAK Vomiting No 07/26/24 18:33 DIALYSIS NURSE.DBAK Anesthesia Postop Eval I: Fluid Summary Crystalloid volume administer 600 07/26/24 18:33 DIALYSIS NURSE.DBAK (ml) Colloids volume administered ( ml) Blood Product volume administered (ml) Total IV fluid infused 600 07/26/24 18:33 DIALYSIS NURSE.DBAK Anesthesia Postop Eval I: Summary Notes Anesthesia Complication No 07/26/24 18:33 DIALYSIS NURSE.DBAK Anesthesia Complication Comment: Post-operative progress note VSS see PACU notes 07/26/24 18:33 DIALYSIS NURSE.DBAK for detaILS Anesthesia: Postop Eval II Evaluation Mental status: Awake Pain Level: 0 nausea: No Vomiting: No Complications Anesthesia Complication: No 07/26/241842 <Electronically signed by Rocky Sidhu MD> Date _ Rocky Sidhu MD Cosigner Signature: Date CC: ~ Signed [facility] Work Phone: 1(148) 391-103806-17-2025 Consult note Author Florentin Clemens [facility] Note Date/Time July 26, 2024 6:[address] [facility] Medical Records Department [address] [place] [address] Anesthesia Postop Eval I 07/26/24 183 MR#: [id number] Acct: [id number] Name: KATHERINE JUDGE Rep #:[id number] : 1935 89 From: Florentin Cameron DIALYSIS NURSE PCP: Dr. Kam Ocampo Sr., DO Status:A DM IN Y Race: C Location: [place] [address] Anesthesia: Postop Eval I Current Vital Signs [...] document: Postop Eval 1 completed: Yes 07/26/241832 <Electronically signed by Florentin Clemens II, CRNA> Date _ Florentin Clemens II, CRNA Cosigner Signature: Date CC: ~ Signed [facility] Work Phone: 1(672) 563-670406-17-[address] [facility] Medical Records Department [address] [place] [address] Anesthesia Postop Eval II 07/26/24 1843 MR#: [id number] Acct: [id number] Name: KATHERINE JUDGE Rep #:[id number] : 1935 89 From: Rocky Sidhu MD PCP: Dr. Kam Ocampo Sr., DO Status:A DM IN Y Race: C Location: [facility] [place] MS316 -1 Anesthesia Postop Eval I Sum Postop Eval Completion status Anesthesia document: Postop Eval 1 completed: Yes Anesthesia Postop Eval I Summary Anesthesia Postop Eval I Summary: Anesthesia Postop Eval I: Assessment Summary Airway patent Yes 07/26/24 18:33 DIALYSIS NURSE.DBAK Spontaneous unlabored Yes 07/26/24 18:33 DIALYSIS NURSE.DBAK respirations Mental status Awake 07/26/24 18:33 DIALYSIS NURSE.DBAK nausea No 07/26/24 18:33 DIALYSIS NURSE.DBAK Vomiting No 07/26/24 18:33 DIALYSIS NURSE.DBAK Anesthesia Postop Eval I: Fluid Summary Crystalloid volume administer 600 07/26/24 18:33 DIALYSIS NURSE.DBAK (ml) Colloids volume administered ( ml) Blood Product volume administered (ml) Total IV fluid infused 600 07/26/24 18:33 DIALYSIS NURSE.DBAK Anesthesia Postop Eval I: Summary Notes Anesthesia Complication No 07/26/24 18:33 DIALYSIS NURSE.DBAK Anesthesia Complication Comment: Post-operative progress note VSS see PACU notes 07/26/24 18:33 DIALYSIS NURSE.DBAK for detaILS Anesthesia: Postop Eval II Evaluation Mental status: Awake Pain Level: 0 nausea: No Vomiting: No Complications Anesthesia Complication: No 07/26/24 1843 MD> Date _ Rocky Sidhu MD Cosigner Signature: Date CC: ~ Signed [facility]06-17-2025 Consult note Author Rocky Sidhu [facility] Note Date/Time July 26, 2024 4:[address] [facility] Medical Records Department [address] [place] [address] Pre-Anesthesia Evaluation 07/26/24 1622 MR#: [id number] Acct: [id number] Name: KATHERINE JUDGE Rep #:[id number] : 1935 89 From: Rocky Sidhu MD PCP: Dr. 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 History - crime scene photographer Hx Hospitalization Any Problems With Anesthesia No [...] take am of surgery PONV PONV - crime scene photographer: PONV - crime scene photographer Female HX of Motion Sickness HX of N/V After Surgery Non-Smoker Duration of Surgery greater than 60 minutes Number of Risk Factors PONV Score Height & Weight Height & Weight: Anesthesia: Height & Weight Height 5 ft 07/26/24 13:46 Weight: 48.534 kg 07/26/24 13:46 Body Mass Index (BMI) 20.9 07/26/24 13:46 Respiratory Assessment Respiratory Assessment - crime scene photographer: Respiratory Tract Infection Hx - crime scene photographer Hx Respiratory Tract Infection No 07/26/24 03:31 STOP Sleep Apnea STOP Sleep Apnea - crime scene photographer: STOP Sleep Apnea - crime scene photographer Hx Hypertension Yes 07/25/24 18:26 Hx Sleep [...] Tobacco Use History Tobacco Use History - crime scene photographer: Tobacco Use History - crime scene photographer Tobacco Use Smoking Status Never smoker 07/25/24 18:26 Hx Tobacco Use No 07/25/24 18:26 Years Smoking Packs Smoked per Day Smoking Cessation Date was No - quit smoking greater 07/25/24 18:26 within the last 15 years than 15 years ago Hx Smoking Cessation Date Hx Smoking Cessation Counseling Hematologic Medial History Hematologic Hx - crime scene photographer: Hematologic 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 Hx of Blood Transfusion Yes 07/25/24 18:26 [...] confused, unrespo /Reproduction History /Reproductive History - crime scene photographer: /Reproductive Hx- crime scene photographer Hx Now No 07/26/24 03:31 Gestational Age [...] mls @ 15 mls/hr 07/25/24 18:28 IV .[id number] PRN Saline Flush Sodium Chloride 250 mls @ 15 mls/hr 07/25/24 18:28 IV .[id number] PRN Additional IVPB Infusion Lactated Ringer's 1,000 mls @ 15 mls/hr 07/26/24 15:45 IV .Q48H HUMBERTO Vancomycin HCl 1,000 mg in 200 mls @ 200 mls/hr 07/26/24 15:57 Vancomycin IV 07/26/24 16:56 PREOP ONE Isosorbide Mononitrate 30 mg 07/26/24 10:00 Isosorbide Mononitrate 30 Mg Tablet PO DAILY [facility] Protocol Loratadine 10 mg 07/26/24 10:00 07/26/24 08:23 Loratadine 10 Mg Tablet PO Not Given DAILY [facility] Melatonin 3 mg 07/25/24 22:00 Melatonin 3 Mg Tablet PO QHS PRN PRN INSOMNIA Metoprolol Tartrate 25 mg 07/25/24 22:00 07/26/24 09:13 Metoprolol Tartrate 25 Mg Tablet PO Not Given BID [facility] Protocol Mirtazapine 30 mg 07/25/24 22:00 07/25/24 22:25 Mirtazapine 30 Mg Tablet PO 30 mg QHS [facility] Administration Montelukast Sodium 10 mg 07/26/24 10:00 07/26/24 08:23 Montelukast 10 Mg Tablet PO Not Given DAILY [facility] Multivitamins 1 tablet 07/26/24 08:00 07/26/24 08:23 Multivitamins,Therapeutic [facility] Ondansetron HCl 4 mg 07/25/24 18:26 07/26/24 12:31 Ondansetron 4 Mg/2 Ml Vial IV 4 mg Q8H PRN PRN Administration NAUSEA/VOMITING Oxycodone HCl 5 mg 07/25/24 18:26 07/26/24 10:54 Oxycodone 5 Mg Tablet PO 5 mg Q4H PRN PRN Administration Pain Score 6-10 Pantoprazole Sodium 40 mg 07/26/24 10:00 07/26/24 08:23 Pantoprazole Sodium 40 Mg Tablet PO Not Given DAILY [facility] Potassium Chloride 20 meq 07/26/24 10:00 07/26/24 08:23 Potassium Chloride Oral Tablet 20 Meq PO Not Given DAILY [facility] Senna/Docusate Sodium 1 tablet 07/26/24 22:00 Senna/Docusate Sodium 1 Tablet PO BID HUMBERTO Sodium Chloride 10 - 40 ml 07/25/24 18:28 07/26/24 12:31 0.9% Saline Lock 10 Ml Syringe IV 10 ml UD PRN Administration [facility] Medical History Polyneuropathy PVD (peripheral vascular disease) [...] spray budesonide 0.5 mg/2 mL suspension mg scleroscope tester 07/25/24 Unkn own History for nebulization bupropion [...] MD Cosigner Signature: Date CC: ~ Signed [facility] Work Phone: 1(860) 909-130106-17-[address] [facility] Medical Records Department [address] [place] [address] Anesthesia Postop Eval I 07/26/24 183 MR#: [id number] Acct: [id number] Name: KATHERINE JUDGE Rep #:[id number] : 1935 89 From: Florentin Clemens I I DIALYSIS NURSE PCP: Dr. Kam Ocampo Sr., DO Status:A DM IN Y Race: C Location: [place] [address] Anesthesia: Postop Eval I Current Vital Signs [...] Postop Eval 1 completed: Yes 07/26/241832 II DIALYSIS NURSE> Date _ Florentin Clemens II, CRNA Malcolmigner Signature: Date CC: ~ Signed [facility]06-17-2025 Procedure note [facility] Medical Records Department [address] [place] [address] Operative Report 07/26/24 1818 MR#: [id number] Acct: [id number] Name: KATHERINE JUDGE Rep #:[id number] : 1935 89 From: Thanh Mclaughlin DO PCP: Dr. Kam Ocampo Sr., DO Status:A DM IN Location: [place] [address] Operative Report (Standard) Operative Information Date of Procedure: 07/26/24 Pre-Operative Diagnosis: Right hip intertrochanteric femur fracture Post-Operative Diagnosis: Same Surgery/Procedure Performed: Right hip cephalomedullary fixation case assistant: No Type of Anesthesia: General RN Documented [...] irrigated the fascia was closed with #1 [id number] Vicryls followed by 2-0 Vicryl in the [...] Intertrochanteric femur fracture Complications Complications: No 07/26/24 8220 Cosigner Signature (if applicable): CC: Dr. Hayden Diaz, DO; Dr. Kam Ocampo Sr., DO; Dr. Thanh Mclaughlin, DO~ Signed [facility]06-17-2025 Progress note Author Neymar Cunningham [facility] Note Date/Time July 26, 2024 3:30 pm [facility] Medical Records Department [address] [place] [address] Progress Note - Hospitalist 07/26/24 1018 MR#: [id number] Acct: [id number] Name: KATHERINE JUDGE Rep #:[id number] : 1935 89 From: Neymar Herrera PCP: Dr. Kam Ocampo Sr., DO Status:A DM IN Location: [place] [address]-1 Reason for Visit Reason for Visit: Diagnoses [...] % (Auto) 69.2, Lymph % (Auto) 22.9, [place] % (Auto) 6.2, Eos % (Auto) 0.9, [...] Clarity Clear, Urine pH 8.0, Ur Specific Dobbins 1.010, Urine Protein 30 H, Urine Glucose [...] 151 H, Calcium 8.9, Troponin T Hi [id number] 25 H, TSH 2.060, Blood Type O POSITIVE, Antibody Screen NEGATIVE Radiography Diagnostic Testing: Radiology Impression Hip/Pelvis X-Ray 07/25/24 15:10 IMPRESSION: Nondisplaced right intertrochanteric fracture of the proximal right femur. Reading Location: [facility] Chest X-Ray 07/25/24 15:15 IMPRESSION: Cardiomegaly and vascular congestion with atelectasis at the lung bases. Reading Location: [facility] Femur X-Ray 07/25/24 17:40 IMPRESSION: Nondisplaced intertrochanteric fracture. Reading Location: [id number] Echocardiogram 07/25/24 22:20 Interpretation Summary Hypermobile atrial septum. Normal LV size. Left ventricular systolic function is normal. The left ventricular ejection fraction is 70 %. Stage 1 diastolic dysfunction. Mild-Moderate (1-2+) anteriorly directed mitral valve insufficiency. Posterior leaflet mitral valve prolapse. Moderate pulmonary hypertension. Ordering Physician: Hayden Diaz Referring Physician: Kam Ocampo Performed By: Celeste Gore, RDMONISHA, RVT Physical Exam Const Constitutional Narrative: Seen and examined. Patient states that she uses oxygen as needed longterm. Uses CPAP diligently at night. Denies chest [...] is an 89-year-old female who presented to [facility] ED on 07/25/2024 with right hip pain [...] Patient on home oxygen as needed in longterm but required 4 L at time of [...] PT/OT/case management consulted as above. Lives in [facility], will likely be okay to return there [...] of the proximal right femur. Reading Location: [facility] Chest X-Ray 07/25/24 15:15 IMPRESSION: Cardiomegaly and vascular congestion with atelectasis at the lung bases. Reading Location: [facility] Femur X-Ray 07/25/24 17:40 IMPRESSION: Nondisplaced intertrochanteric fracture. Reading Location: [id number] Echocardiogram 07/25/24 22:20 Interpretation Summary Hypermobile atrial [...] is 35 minutes. Visit Charges Inpatient E&M: 77011 Subs Hosp L3 07/26/24 1530 <Electronically signed by Neymar Cunningham MD> Cosigner Signature (if applicable): CC: ~ Signed [facility] Work Phone: [phone] 500-903706-17-[address] [facility] Medical Records Department [address] [place] [address] Pre-Anesthesia Evaluation 07/26/24 1622 MR#: [id number] Acct: [id number] Name: KATHERINE JUDGE Rep #:[id number] : 1935 89 From: Rocky Sidhu MD PCP: Dr. Kam Ocampo Sr., DO Status:A DM IN Y Race: C [place] [facility] [place] -1 ASA Classification* ASA Classification ASA Classification: 4 [...] and anesthesia risk assessments. As per hospitalist: Mayda acute on chronic HFpEF with hypoxia, history of CAD with stenting, hypertension, hyperlipidemia, history of CVA ? Last echo in 10/2022 showed EF 70%, LA enlargement but no diastolic dysfunction, no valvular issues. Chest x-ray on admit with cardiomegaly with vascular congestion and atelectasis at lung bases. Patient on home oxygen as needed in longterm but required 4 L at time of [...] ortho note) Anesthesia History Anesthesia History - crime scene photographer: Anesthesia History - crime scene photographer Hx Hospitalization Any Problems With Anesthesia No [...] take am of surgery PONV PONV - crime scene photographer: PONV - crime scene photographer Female HX of Motion Sickness HX of N/V After Surgery Non-Smoker Duration of Surgery greater than 60 minutes Number of Risk Factors PONV Score Height & Weight Height & Weight: Anesthesia: Height & Weight Height 5 ft 07/26/24 13:46 Weight: 48.534 kg 07/26/24 13:46 Body Mass Index (BMI) 20.9 07/26/24 13:46 Respiratory Assessment Respiratory Assessment - crime scene photographer: Respiratory Tract Infection Hx - crime scene photographer Hx Respiratory Tract Infection No 07/26/24 03:31 STOP Sleep Apnea STOP Sleep Apnea - crime scene photographer: STOP Sleep Apnea - crime scene photographer Hx Hypertension Yes 07/25/24 18:26 Hx Sleep [...] Tobacco Use History Tobacco Use History - crime scene photographer: Tobacco Use History - crime scene photographer Tobacco Use Smoking Status Never smoker 07/25/24 18:26 Hx Tobacco Use No 07/25/24 18:26 Years Smoking Packs Smoked per Day Smoking Cessation Date was No - quit smoking greater 07/25/24 18:26 within the last 15 years than 15 years ago Hx Smoking Cessation Date Hx Smoking Cessation Counseling Hematologic Medial History Hematologic Hx - crime scene photographer: Hematologic 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 Hx of Blood Transfusion Yes 07/25/24 18:26 [...] confused, unrespo /Reproduction History /Reproductive History - crime scene photographer: /Reproductive Hx- crime scene photographer Hx Now No 07/26/24 03:31 Gestational Age [...] 1 Mg Tablet PO Not Given DAILY [facility] Furosemide 20 mg 07/26/24 10:00 07/26/24 08:23 Furosemide 20 Mg Tablet PO Not Given DAILY [facility] Protocol Hydromorphone HCl 0.5 mg 07/25/24 20:49 07/25/24 22:16 Hydromorphone 0.5 Mg/0.5 Ml Syringe IV 0.5 mg Q4H PRN PRN Administration Pain Score 6-10 Sodium Chloride 250 mls @ 15 mls/hr 07/25/24 18:28 IV .[id number] PRN Saline Flush Sodium Chloride 250 mls @ 15 mls/hr 07/25/24 18:28 IV .[id number] PRN Additional IVPB Infusion Lactated Ringer's 1,000 mls @ 15 mls/hr 07/26/24 15:45 IV .Q48H HUMBERTO Vancomycin HCl 1,000 mg in 200 mls @ 200 mls/hr 07/26/24 15:57 Vancomycin IV 07/26/24 16:56 PREOP ONE Isosorbide Mononitrate 30 mg 07/26/24 10:00 Isosorbide Mononitrate 30 Mg Tablet PO DAILY [facility] Protocol Loratadine 10 mg 07/26/24 10:00 07/26/24 08:23 Loratadine 10 Mg Tablet PO Not Given DAILY [facility] Melatonin 3 mg 07/25/24 22:00 Melatonin 3 Mg Tablet PO QHS PRN PRN INSOMNIA Metoprolol Tartrate 25 mg 07/25/24 22:00 07/26/24 09:13 Metoprolol Tartrate 25 Mg Tablet PO Not Given BID [facility] Protocol Mirtazapine 30 mg 07/25/24 22:00 07/25/24 22:25 Mirtazapine 30 Mg Tablet PO 30 mg QHS [facility] Administration Montelukast Sodium 10 mg 07/26/24 10:00 07/26/24 08:23 Montelukast 10 Mg Tablet PO Not Given DAILY [facility] Multivitamins 1 tablet 07/26/24 08:00 07/26/24 08:23 Multivitamins,Therapeutic [facility]t [facility] Ondansetron HCl 4 mg 07/25/24 18:26 07/26/24 12:31 Ondansetron 4 Mg/2 Ml Vial IV 4 mg Q8H PRN PRN Administration NAUSEA/VOMITING Oxycodone HCl 5 mg 07/25/24 18:26 07/26/24 10:54 Oxycodone 5 Mg Tablet PO 5 mg Q4H PRN PRN Administration Pain Score 6-10 Pantoprazole Sodium 40 mg 07/26/24 10:00 07/26/24 08:23 Pantoprazole Sodium 40 Mg Tablet PO Not Given DAILY [facility] Potassium Chloride 20 meq 07/26/24 10:00 07/26/24 08:23 Potassium Chloride Oral Tablet 20 Meq PO Not Given DAILY [facility] Senna/Docusate Sodium 1 tablet 07/26/24 22:00 Senna/Docusate Sodium 1 Tablet PO BID [facility] Sodium Chloride 10 - 40 ml 07/25/24 18:28 07/26/24 12:31 0.9% Saline Lock 10 Ml Syringe IV 10 ml UD PRN Administration [facility] Medical History Polyneuropathy PVD (peripheral vascular disease) [...] spray budesonide 0.5 mg/2 mL suspension mg scleroscope tester 07/25/24 Unkn own History for nebulization bupropion [...] rhythm, no murmurs and diaphoretic 07/26/24 1641 > Date _ Rocky Fowlerigner Signature: Date CC: ~ Signed [facility]06-17-2025 Progress note [facility] Medical Records Department [address] [place] [address] Progress Note - Hospitalist 07/26/24 1018 MR#: [id number] Acct: [id number] Name: KATHERINE JUDGE Rep #:[id number] : 1935 89 From: Neymar Herrera PCP: Dr. Kam Ocampo Sr., DO Status:A DM IN Location: [place] [address]1 Reason for Visit Reason for Visit: Diagnoses [...] % (Auto) 69.2, Lymph % (Auto) 22.9, [place] % (Auto) 6.2, Eos % (Auto) 0.9, [...] Clarity Clear, Urine pH 8.0, Ur Specific Dobb[place] 1.010, Urine Protein 30 H, Urine Glucose [...] 151 H, Calcium 8.9, Troponin T Hi [id number] 25 H, TSH 2.060, Blood Type O POSITIVE, Antibody Screen NEGATIVE Radiography Diagnostic Testing: Radiology Impression Hip/Pelvis X-Ray 07/25/24 15:10 IMPRESSION: Nondisplaced right intertrochanteric fracture of the proximal right femur. Reading Location: [facility] Chest X-Ray 06/16/25 15:15 IMPRESSION: Cardiomegaly and vascular congestion with atelectasis at the lung bases. Reading Location: [facility] Femur X-Ray 07/25/24 17:40 IMPRESSION: Nondisplaced intertrochanteric fracture. Reading Location: [id number] Echocardiogram 07/25/24 22:20 Interpretation Summary Hypermobile atrial [...] states that she uses oxygen as needed longterm. Uses CPAP diligently at night. Denies chest [...] is an 89-year-old female who presented to [facility] ED on 07/25/2024 with right hip pain after a mechanical fall. 1. Acute debility due to right hip nondisplaced intertrochanteric fracture: [facility]. Hip and pelvis x-rays reviewed and [...] Patient on home oxygen as needed in longterm but required 4 L at time of [...] PT/OT/case management consulted as above. Lives in [facility], will likely be okay to return there [...] of the proximal right femur. Reading Location: [facility] Chest X-Ray 07/25/24 15:15 IMPRESSION: Cardiomegaly and vascular congestion with atelectasis at the lung bases. Reading Location: [facility] Femur X-Ray 07/25/24 17:40 IMPRESSION: Nondisplaced intertrochanteric fracture. Reading Location: [id number] Echocardiogram 07/25/24 22:20 Interpretation Summary Hypermobile atrial [...] is 35 minutes. Visit Charges Inpatient E&M: 21964 Subs Hosp L3 07/26/24 1530 Cosigner Signature (if applicable): CC: ~ Signed [facility]06-17-2025 Discharge summary Author Jacobo Moya [facility] Note Date/Time July 25, 2024 11:2 7pm [facility] Medical Records Department [address] [place] [address] Emergency Department Summary 07/25/24 MR#: [id number] Acct: [id number] Name: KATHERINE JUDGE Rep #:[id number] : 1935 89 From: Jacobo Palmer PCP: Dr. Kam Ocampo Sr., DO Status:A DM IN Location[place] [facility] [place]-2 HPI HPI - Fall History of Present [...] of consciousness. Patient denies any other injuries. [facility] Medical History (Updated 07/25/24 @ 17:08 by [...] % (Auto) 69.2 Lymph % (Auto) 22.9 [place] % (Auto) 6.2 Eos % (Auto) 0.9 [...] of the proximal right femur. Reading Location: [facility] Chest X-Ray 07/25/24 15:15 IMPRESSION: Cardiomegaly and vascular congestion with atelectasis at the lung bases. Reading Location: [facility] Portable 1 view chest x-ray was [...] sinus rhythm with a rate of 66. DC interval was normal at 170 ms. QRS interval was prolonged at 144 ms. QTc interval was slightly prolonged at 484 ms. There is borderline right axis deviation at 105. There is a right bundle branch block pattern noted. There are nonspecific ST-T wave changes noted. Prior EKG tracings: not available for review Prior: No Prior Management Discussion w/another healthcare provider: Hospitalist and Delivery Specialist Treatment and Re-Evaluation Narrative: Patient was advised [...] pressure reading Disposition Disposition: Acute Care Hospital [facility] What to do if you have Problems For any increased pain, shortness of breath, bleeding, nausea or vomiting, chestpain, or any unexpected problems, contact your Primary Care Provider. Call [facility] ([phone]) or report to the closest Emergency Room. Call 911 if necessary. 07/25/242326 <Electronically signed by Jacobo Moya DO> Cosigner Signature (if applicable): CC: Dr. Kam Ocampo Sr., DO ~ Signed [facility] Work Phone: 1(368) 573-849406-17-2025 History and physical note Author Hayden Diaz [facility] Note Date/Time July 25, 2024 10:2 0pm [facility] Medical Records Department [address] [place] [address] H&P Exam - Hospitalist 07/25/24 1651 MR#: [id number] Acct: [id number] Name: KATHERINE JUDGE Rep #:[id number] : 1935 89 From: Hayden malik DO PCP: Dr. Kam Ocampo Sr., DO Status:A DM IN Location: MS3 [id number] HPI - General General Date of Admission: 07/25/24 Date of Service: 07/25/24 Chief Complaint: Fall with right hip pain HPI Narrative KATHERINE JUDGE, is a 89 F who presented to [facility] ED on 07/25/2024 with right hip pain after a fall. Patient has history of chronic debility, lives at the [facility]. She had a fall today where shewas [...] currently. Will be admitted for further management. [facility] Medical History (Updated 07/25/24 @ 22:[address] Hayden Diaz, ) Polyneuropathy PVD (peripheral vascular disease) Osteoporosis [...] spray budesonide 0.5 mg/2 mL suspension mg scleroscope tester 07/25/24 Unkn own History for nebulization bupropion [...] % (Auto) 69.2, Lymph % (Auto) 22.9, [place] % (Auto) 6.2, Eos % (Auto) 0.9, [...] of the proximal right femur. Reading Location: [facility] Chest X-Ray 07/25/24 15:15 IMPRESSION: Cardiomegaly and vascular congestion with atelectasis at the lung bases. Reading Location: [facility] Assessment & Plan Assessment/Plan (1) Closed intertrochanteric fracture of right hip: QUALIFIERS: Encounter type: initial encounter Fracture alignment: displaced Qualified Code(s): S72.141A - Displaced intertrochanteric fracture of right femur, initial encounter for closed fracture (2) Acute on chronic heart failure with preserved ejection fraction (HFpEF): PLAN: Plan Patient is an 89-year-old female who presented to [facility] ED on 07/25/2024 with right hip pain after a mechanical fall. 1. Right hip fracture ? Admit under inpatient status to [facility]. Orthopedic surgery consulted. PT/OT/case management consulted. Presented [...] PT/OT/case management consulted as above. Lives in [facility], will likely be okay to return there on discharge. 5. Mild chronic anemia ? Hemoglobin stable at baseline 10-11 on admission. 6. Anxiety/depression ? Stable. Continue home bupropion and mirtazapine. 7. GERD ? Continue home PPI. DVT prophylaxis: SCDs CODE STATUS: DNR CCA, DNI Expected disposition: Likely back to longterm, TBD Total clinical time spent by myself addressing the patient's medical issues, reviewing all the data, and collaborating with patient's care team: 75 minutes. Charges/Coding Visit Charges Inpatient E&M: 42318 Init Hosp L3 07/25/24 2220 <Electronically signed by Hayden Diaz DO> Cosigner Signature (if applicable): CC: Dr. Hayden Diaz, DO; Dr. Kam Ocampo Sr., DO~ Signed [facility] Work Phone: 1(960) 183-412506-16-2025 Discharge summary [facility] Medical Records Department [address] [place] [address] Emergency Department Summary 07/25/24 MR#: [id number] Acct: [id number] Name: KATHERINE JUDGE Rep #:[id number] : 1935 89 From: Jacobo Palmer PCP: Dr. Kam Ocampo Sr., DO Status:A DM IN Location: [place] [address] HPI HPI - Fall History of Present [...] of consciousness. Patient denies any other injuries. [facility] Medical History (Updated 07/25/24 @ 17:08 by [...] % (Auto) 69.2 Lymph % (Auto) 22.9 [place] % (Auto) 6.2 Eos % (Auto) 0.9 [...] of the proximal right femur. Reading Location: [facility] Chest X-Ray 07/25/24 15:15 IMPRESSION: Cardiomegaly and vascular congestion with atelectasis at the lung bases. Reading Location: [facility] Portable 1 view chest x-ray was obtained. [...] normal sinus rhythm with arate of 66. DC interval was normal at 170 ms. QRS interval was prolonged at 144 ms. QTc interval was slightly prolonged at 484 ms. There is borderline right axis deviation at 105. There is a right bundle branch block pattern noted. There are nonspecific ST-T wave changes noted. Prior EKG tracings: not available for review Prior: No Prior Management Discussion w/another healthcare provider: Hospitalist and Delivery Specialist Treatment and Re-Evaluation Narrative: Patient was advised [...] pressure reading Disposition Disposition: Acute Care Hospital [facility] What to do if you have Problems For any increased pain, shortness of breath, bleeding, nausea or vomiting, chestpain, or any unexpected problems, contact your Primary Care Provider. Call [facility] ([phone]) or report tothe closest Emergency Room. Call 911 if necessary. 07/25/24 1047 Cosigner Signature (if applicable): CC: Dr. Kam Ocampo Sr., ~ Signed [facility]06-16-2025 History and physical note [facility] Medical Records Department [address] [place] [address] H&P Exam - Hospitalist 07/25/24 1651 MR#: [id number] Acct: [id number] Name: KATHERINE JUDGE Rep #:[id number] : 1935 89 From: Hayden malik DO PCP: Dr. Kam Ocampo Sr., Status:A DM IN Location: [facility] [place]705-4 HPI - General General Date of Admission: 07/25/24 Date of Service: 07/25/24 Chief Complaint: Fall with right hip pain HPI Narrative KATHERINE JUDGE, is a 89 F who presented to [facility] ED on 07/25/2024 with right hippain after a fall. Patient has history of chronic debility, lives at the [facility]. She had a fall today where shewas [...] currently. Will be admitted for further management. [facility] Medical History (Updated 07/25/24 @ 22:[address] Hayden Diaz DO) Polyneuropathy PVD (peripheral vascular disease) Osteoporosis [...] spray budesonide 0.5 mg/2 mL suspension mg scleroscope tester 07/25/24 Unkn own History for nebulization bupropion [...] % (Auto) 69.2, Lymph % (Auto) 22.9, [place] % (Auto) 6.2, Eos % (Auto) 0.9, [...] of the proximal right femur. Reading Location: [facility]-1 Chest X-Ray 07/25/24 15:15 IMPRESSION: Cardiomegaly and vascular congestion with atelectasis at the lung bases. Reading Location: [facility] Assessment & Plan Assessment/Plan (1) Closed intertrochanteric fracture of right hip: QUALIFIERS: Encounter type: initial encounter Fracture alignment: displaced Qualified Code(s): S72.141A - Displaced intertrochanteric fracture of right femur, initial encounter for closed fracture (2) Acute on chronic heart failure with preserved ejection fraction (HFpEF): PLAN: Plan Patient is an 89-year-old female who presented to [facility] ED on 07/25/2024 with right hip pain after a mechanical fall. 1. Right hip fracture ? Admit under inpatient status to [facility]. Orthopedic surgery consulted. PT/OT/case management consulted. Presented [...] PT/OT/case management consulted as above. Lives in [facility], will likely be okay to return there on discharge. 5. Mild chronic anemia ? Hemoglobin stable at baseline 10-11 on admission. 6. Anxiety/depression ? Stable. Continue home bupropion and mirtazapine. 7. GERD ? Continue home PPI. DVT prophylaxis: SCDs CODE STATUS: DNR CCA, DNI Expected disposition: Likely back to longterm, TBD Total clinical time spent by myself addressing the patient's medical issues, reviewing all the data, and collaborating with patient's care team: 75 minutes. Charges/Coding Visit Charges Inpatient E&M: 68706 Init Hosp L3 07/25/242219 Cosigner Signature (if applicable): CC: Dr. Hayden Diaz, DO; Dr. Kam Ocampo Sr., DO~ Signed [facility]06-16-2025 Radiology Diagnostic study note [facility] Imaging Services [address] [place] [address] Femur Min 2 Views MR#: [id number] Acct: [id number] Name: KATHERINE JUDGE Rep #: [id number] : 1935 F 89 From: Brannon Bland MD PCP: Dr. Kam Ocampo Sr., DO Status: A DM IN Study:Femur Min 2 Views Date of Exam: Exam# [id number] Ordering Dr: Thanh Mclaughlin DO PROCEDURE: FEMUR MIN 2 VIEWS 07/25/2024 REASON FOR EXAM: FRACTURE SURGERY PLANNING TECHNIQUE: FEMUR MIN 2 VIEWS COMPARISON: 07/25/2024 radiograph. FINDINGS: Right knee arthroplasty. Nondisplaced intertrochanteric fracture of the right femur. Degenerative changes of the right hip. RAD/Femur Min 2 Views IMPRESSION: Nondisplaced intertrochanteric fracture. Reading Location: [id number] CC: Dr. Kam Ocampo Sr., ; Dr. Thanh Mclaughlin DO ~ Patient Care Assistant: Signed [facility]06-16-2025 Consult note Author Thanh [facility] Note Date/Time July 25, 2024 5:10 pm [facility] Medical Records Department [address] [place] [address] Consultation 07/25/24 1706 MR#: [id number] Acct: [id number] Name: KATHERINE JUDGE Rep #:[id number] : 1935 89 From: Thanh Mclaughlin DO [...] years ago with Dr. Malcom Herron in [facility]. She is on Plavix [facility] Medical History (Updated 07/25/24 @ 17:08 by [...] her son who is her power of securities attorney Appearance: cooperative Extremity Extremity Narrative: Exquisitely [...] % (Auto) 69.2, Lymph % (Auto) 22.9, [place] % (Auto) 6.2, Eos % (Auto) 0.9, [...] of the proximal right femur. Reading Location: [facility]-1 Chest X-Ray 07/25/24 15:15 IMPRESSION: Cardiomegaly and vascular congestion with atelectasis at the lung bases. Reading Location: [facility] 07/25/24 1710 <Electronically signed by Thanh Mclaughlin DO> Cosigner Signature (if applicable): CC: Dr. Kam Ocampo Sr., DO~ Signed [facility] Work Phone: 1(186) 564-390606-16-2025 Evaluation note* Diagnosis Onset Date Resolution Status Admit Date 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) acute July 25, 2024 4:51pm Closed intertrochanteric fra cture of right hip acute July 25, 2024 4:51pm Elevated blood pressure reading acut e July 25, 2024 4:51pm Fall acute July 25 4:51pm [facility] Work Phone: 1(608) 187-543106-16-2025 Evaluation note* Diagnosis Onset Date Resolution Status Admit Date Closed intertrochanteric fra cture of right hip acute July 25, 2024 4:51pm Elevated blood pressure reading acut e July 25, 2024 4:51pm Fall acute July 25 4:51pm 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) resolved July 25, 2024 4:51pm Altered mental status acute Jul 5:20pm Anemia acute August 02 5:20pm GI bleed acute August 02 5:20pm [facility] Work Phone: 1(943) 385-332906-16-2025 Evaluation note* Diagnosis Onset Date Resolution Status Admit Date Closed intertrochanteric fra cture of right hip acute July 25, 2024 4:51pm Elevated blood pressure reading acut e July 25, 2024 4:51pm Fall acute July 25 4:51pm 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) resolved July 25, 2024 4:51pm GI bleed acute August 02 5:20pm Altered mental status resolved Guzman 2024 5:20pm Anemia inactive August 02 5:20pm [facility] Work Phone: 1([phone]) 134-864706-16-2025 Consult note [facility] Medical Records Department [address] [place] [address] Consultation 07/25/24 1706 MR#: [id number] Acct: [id number] Name: KATHERINE JUDGE Rep #:[id number] : 1935 89 From: Thanh Mclaughlin DO [...] Consult: 07/25/24 HPI Narrative HPI Narrative: KATHERINE UJDGE, is a 89 F who presents after ground-level fall onto right hip. She immediately had pain and inability ambulate x-rays taken the emergency room department demonstrated a intertrochanteric fracture with lesser trochanteric displacement. Of note she did have prior right total knee arthroplasty many years ago with Dr. Malcom Herron in [facility]. She is on Plavix [facility] Medical History (Updated 07/25/24 @ 17:08 by [...] her son who is her power of securities attorney Appearance: cooperative Extremity Extremity Narrative: Exquisitely [...] % (Auto) 69.2, Lymph % (Auto) 22.9, [place] % (Auto) 6.2, Eos % (Auto) 0.9, [...] of the proximal right femur. Reading Location: [facility]-1 Chest X-Ray 07/25/24 15:15 IMPRESSION: Cardiomegaly and vascular congestion with atelectasis at the lung bases. Reading Location: [facility] 07/25/24 1710 Cosigner Signature (if applicable): CC: Dr. Kam Ocampo Sr., DO~ Signed [facility]16[facility] Radiology Diagnostic study note [facility] Imaging Services [address] [place], [place] [id number] Chest 1 View (Portable) MR#: [id number] Acct: [id number] Name: KATHERINE JUDGE Rep #: [id number] : 1935 F 89 From: Reyes Haynes MD PCP: Dr. Kam Ocampo Sr., DO Status: R EG ER Study:Chest 1 View (Portable) Date of Exam: 07/25/24 Exam# [id number] Ordering Dr: Jacobo Moya DO PROCEDURE: CHEST [...] atelectasis at the lung bases. Reading Location: [place] [address] CC: Dr. Kam Ocampo Sr., DO; Dr. Jacobo Moya, ~ Patient Care Assistant: Signed [facility]06-16-2025 Radiology Diagnostic study note [facility] Imaging Services [address] [place] [address] HIP, UNI W/ Pelvis 2-3 Views MR#: [id number] Acct: [id number] Name: KATHERINE JUDGE Rep #: [id number] : 1935 F 89 From: Reyes Haynes MD PCP: Dr. Kam Ocampo Sr., DO Status: R EG ER Study:HIP, UNI W/ Pelvis 2-3 Views Date of Ex am: 07/25/24 Exam# [id number] Ordering Dr: Jacobo Moya DO PROCEDURE: HIP, [...] of the proximal right femur. Reading Location: [facility]1 CC: Dr. Kam Ocampo Sr., DO; Dr. Jacobo Moya, ~ Patient Care Assistant: Signed [facility]09-28-2023 Discharge summary Author Yandel Matute [facility] November 06, 2022 8:16pm Note Date/Time November 06, 2022 8:17pm [facility] Medical Records Department [address] [place] [address] Emergency Department Summary 11/06/22 MR#: [id number] Acct: [id number] Name: KATHERINE JUDGE Rep #:[id number] : 1935 87 From: Yandel Matute DO [...] concern for TIA. Patient is on Plavix. [facility] Medical History Age-related physical debility Atherosclerotic heart disease of [place] coronary artery without angina pectoris Calculus of [...] % (Auto) 60.8 Lymph % (Auto) 29.3 [place] % (Auto) 7.4 Eos % (Auto) 1.6 [...] Clarity Clear Urine pH 7.0 Ur Specific Dobbins 1.010 Urine Protein Negative Urine Glucose (UA) [...] 18:11 EDT Reading Location ID and State: [facility] / [place] Tel , Service support , ADDENDUM: 11/06/22 1825 IMPRESSION: Volume loss with chronic white matter changes. No acute intracranial findings. N.B. : The above Results were Read Back by Santos Neal MD to Yandel Matute MD, and understanding confirmed on 11/06/2022 18:18:30 (ET). Electronically Signed: Santos Neal MD at 18:11 EDT Reading Location ID and State: [facility] / [place] Tel , Service support , Chest X-Ray 11/06/22 17:55 IMPRESSION: Bibasilar infiltrates with right basilar consolidation, findings unchanged from prior chest x-ray. Recommend short-term follow-up for resolution. Electronically Signed: Santos Neal MD at 18:13 EDT Reading Location ID and State: [facility] / [place] Tel , Service support , Discharge Plan [...] your Primary Care Provider. Call [facility] ([phone]) or report to the closest Emergency Room. Call 911 if necessary. 11/06/222015 <Electronically signed by Yandel Matute DO> Cosigner Signature (if applicable): CC: Dr. Kam Ocampo Sr., DO ~ Signed [facility] Work Phone: 1(706) 196-333809-23-2023 Progress note Author Neymar Cunningham [facility] November 01, 2022 2:44pm Note Date/Time November 01, 2022 7:47am [facility] Medical Records Department [address] [place] [address] Progress Note - Hospitalist 11/01/22 0745 MR#: [id number] Acct: [id number] Name: KATHERINE JUDGE Rep #:[id number] : 1935 87 From: Neymar Herrera PCP: Dr. Kam Ocampo SrLeigh, DO Status:A DM IN Location: ICU CVICU 3-1 Reason for Visit Reason for Visit: [...] Signed: Galileo Britt DO at 22:21 EDT , Physical Exam Narrative Seen and [...] CAD, hypertension and depression who presented to [facility] ED from longterm on 10/30/2022 for expressive aphasia and dysarthria. [...] of ASD; bubble contrast study negative for [id number] interatrial shunt. LA severely enlarged. EF 70%. MRI brain reports no acute or subacute ischemic infarct or acute intracranial abnormality. SOC consult ordered 2. Chronic debility Patient's family notes that she was recently hospitalized at an outside hospitalfor medical concerns unrelated to current concern for acute CVA. She was discharged to a shelter facility, with plans for long-term placement in a longterm after that. Has been residing at the [facility], and family has been happy with this arrangement. ? PT/OT/case management consulted. Fall precautions in place. Chronic medical conditions: ? Hypertension, history of CAD: Continue home metoprolol, isosorbide mononitrate, Lasix, potassium supplement, doxazosin. ? Depression: Continue home bupropion, mirtazapine at night. DVT prophylaxis: SCDs CODE STATUS: DNR CCA, DO NOT INTUBATE Expected disposition: Long-term care facility Charges/Coding Visit Charges Inpatient E&M: 53965 Subs Hosp L3 11/01/22 1444 <Electronically signed by Neymar Cunningham MD> Cosigner Signature (if applicable): CC: ~ Signed [facility] Work Phone: 1(317) 948-378409-22-2023 Progress note Author Neymar Cunningham [facility] October 31, 2022 12:03pm Note Date/Time October 31, 2022 11:13am [facility] Medical Records Department [address] [place] [address] Progress Note - Hospitalist 10/31/22 1111 MR#: [id number] Acct: [id number] Name: KATHERINE JUDGE Rep #:[id number] : 1935 87 From: Neymar Herrera PCP: [...] % (Auto) 55.1, Lymph % (Auto) 33.7, [place] % (Auto) 8.1, Eos % (Auto) 2.1, [...] Clarity Clear, Urine pH 8.0, Ur Specific Dobbins 1.010, Urine Protein Negative, Urine Glucose (UA) [...] CAD, hypertension and depression who presented to [facility] ED from longterm on 10/30/2022 for expressive aphasia and dysarthria. [...] acute CVA. She was discharged to a shelter facility, with plans for long-term placement in a longterm after that. Has been residing at the [facility], and family has been happy with this arrangement. ? PT/OT/case management consulted. Fall precautions in place. Chronic medical conditions: ? Hypertension, history of CAD: Continue home metoprolol, isosorbide mononitrate, Lasix, potassium supplement, doxazosin. ? Depression: Continue home bupropion, mirtazapine at night. DVT prophylaxis: SCDs CODE STATUS: DNR CCA, DO NOT INTUBATE Expected disposition: Long-term care facility Charges/Coding Visit Charges Inpatient E&M: 49154 Subs Hosp L3 10/31/22 1203 <Electronically signed by Neymar Cunningham MD> Cosigner Signature (if applicable): CC: ~ Signed [facility] Work Phone: 1(947) 553-518709-22-2023 Consult note Author Ajay Nieves [facility] October 31, 2022 9:32am Note Date/Time October 31, 2022 7:12am [facility] Medical Records Department [address] [place] [address] Consultation - Events Associate 10/31/22 0711 MR#: [id number] Acct: [id number] Name: KATHERINE JUDGE Rep #:[id number] : 1935 87 From: Ajay Nieves DO [...] medicationsas indicated. This note was generated with [employer] dictation software. It may contain incorrectwords, spelling, and [...] depression. She was currently residing at the [facility]. On presentation to the emergency department, the [...] medical intensive care unit for further management. [facility] Medical History (Updated 10/30/22 @ 21:30 by Andrews Chou) Age-related physical debility Atherosclerotic heart disease of [place] coronary artery without angina pectoris Calculus of [...] % (Auto) 55.1, Lymph % (Auto) 33.7, [place] % (Auto) 8.1, Eos % (Auto) 2.1, [...] Clarity Clear, Urine pH 8.0, Ur Specific Dobbins 1.010, Urine Protein Negative, Urine Glucose (UA) [...] Std Deviation 51.9 H, RDW Coeff of Tmaera 13.4, Plt Count 195, MPV 8.9, Sodium [...] EDT , Charges/Coding Visit Charges Inpatient E&M: 58236 Init Hosp L3 10/31/22 0932 <Electronically signed by Ajay Nieves DO> Cosigner Signature (if applicable): CC: Dr. Hayden Diaz DO; Dr. Kam Ocampo Sr., DO~ Signed [facility] Work Phone: [phone]) 698-183709-22-2023 History and physical note Author Hayden Diaz [facility] October 31, 2022 3:59am Note Date/Time October 30, 2022 9:19pm [facility] Medical Records Department [address] [place] [address] [place] [address] H&P Exam - Hospitalist 10/30/222115 MR#: [id number] Acct: [id number] Name: KATHERINE JUDGE Rep #:[id number] : 1935 87 From: Hayden malik DO PCP: Dr. Kam Ocampo Sr., DO Status:A DM IN Location: ICU CVICU20 3-1 HPI - General General Date of Admission: 10/30/22 Date of Service: 10/30/22 Chief Complaint: Acute CVA HPI Narrative KATHERINE JUDGE, is a 87 F with history of chronic debility, TIA, CAD, hypertension and depression who presented to [facility] ED from longterm on 10/30/2022 as a stroke alert. Patient [...] for hospitalization. She was discharged to the [facility] with plan for long-term placement in the [...] head/neck was negative for any acute pathology. [facility] Medical History (Updated 10/30/22 @ 21:30 by Andrews Chou) Age-related physical debility Atherosclerotic heart disease of [place] coronary artery without angina pectoris Calculus of [...] % (Auto) 55.1, Lymph % (Auto) 33.7, [place] % (Auto) 8.1, Eos % (Auto) 2.1, [...] CAD, hypertension and depression who presented to [facility] ED from longterm on 10/30/2022 as a stroke alert. 1. [...] in her speech. ? Admit to ICU. Events Associate consulted. Patient will require close monitoring over [...] acute CVA. She was discharged to a shelter facility, with plans for long-term placement in a longterm after that. Has been residing at the [facility], and family has been happy with this [...] 55 minutes. Charges/Coding Visit Charges Inpatient E&M: 32060 Init Hosp L2 10/31/22 0359 <Electronically signed by Hayden Diaz DO> Cosigner Signature (if applicable): CC: Dr. Hayden Diaz, ; Dr. Kam Ocampo Leigh, DO~ Signed [facility] Work Phone: 1(874) 429-544609-22-2023 Discharge summary Author Amalia Donahue [facility] October 31, 2022 12:06am Note Date/Time October 30, 2022 8:12pm [facility] Medical Records Department [address] [place] [address] Emergency Department Summary 10/30/22 MR#: [id number] Acct: [id number] Name: KATHERINE JUDGE Rep #:[id number] : 1935 87 From: Amalia Donahue DO PCP: Dr. Kam Ocampo Sr., DO Status:A DM IN Location: ICU CVICU20 3-1 HPI History of Present Illness Chief Complaint: Stroke Alert Detail of Chief Complaint: Stroke Informant: patient, family and EMS Narrative Narrative: Patient presents to the emergency department via EMS from longterm. Patientwas last seen well about 1840 5 PM. When she was next checked on she had difficulty with speech and seemed to be confused. Patient has history of prior TIA and history of coronary artery disease as well as hypertension. Patient recently was taken off her Plavix. Patient denies any chest pain. She denies headache. She has not had any falls or injuries. [facility] Medical History (Updated 10/30/22 @ 21:30 by Andrews Chou) Age-related physical debility Atherosclerotic heart disease of [place] coronary artery without angina pectoris Calculus of [...] patient has no unwell at 1820 per longterm staff as I called personally to discuss [...] with patient's son who is power of employee benefits attorney and also with patient and they are [...] % (Auto) 55.1 Lymph % (Auto) 33.7 [place] % (Auto) 8.1 Eos % (Auto) 2.1 [...] 30-74 minutes, Including time spent:,Discussing w/Patient &/or Family/Scrub Wheel Operator, Discussing w/Consultants, ArrangingAdmission or Transfer, Performing Direct Patient Care at Bedside and - (30 minutes) Discharge Plan Dx/Rx/DC Orders Clinical Impression: Acute CVA (cerebrovascular accident), History of CAD (coronary artery disease),Hypertension Disposition Disposition: Acute Care Hospital [facility] Discharge Date/Time: 10/30/22 22:27 What to do if you have Problems For any increased pain, shortness of breath, bleeding, nausea or vomiting, chestpain, or any unexpected problems, contact your Primary Care Provider. Call [facility] ([phone]) or report to the closest Emergency Room. Call 911 if necessary. 10/31/22 0006 <Electronically signed by Amalia Donahue DO> Cosigner Signature (if applicable): CC: Dr. Kam Ocampo Sr., DO ~ Signed [facility] Work Phone: 1([phone]) [phone] History of Present illness Narrative* Sophia Moreira RN - 10/16/2022 1:32 PM EDT Report called to [facility]. Nurse was informed of the superintendent colliery time of 1400. * Eder Monterroso MD - 10/15/2022 4:14 PM EDT Images from the original note were not included. Hospitalist Progress Note 10/15/[id number]: Please secure chat me for patient care issues. [phone]: Please secure chat [facility] Hospitalist for any issues. Subjective: Admit Date: 10/10/2022 PCP: Saida Gardinre Room#: B2-259/B2-259 A Interval History: Patient is lying on the bed, abdominal pain continues to improve. Denies any nausea or vomiting. Tolerating p.o. diet well. Diarrhea also improved. No other significant overnight issues. Adult diet Regular; Low Fiber @YALX8JGYQVS@ 24HR INTAKE/OUTPUT: Intake/Output Summary (Last 24 hours) at 10/15/2022 1614 Last data filed at 10/15/2022 1145 Gross per 24 hour Intake 500 ml Output 275 ml Net 225 ml Past Medical History: Past Medical History: Diagnosis Date CAD (coronary artery disease) Hypothyroidism Ischemic colitis (HCC) LABS: CBC: Recent Labs 10/13/2230710/14/22 0144 10/15/22 0435 WBC 7.8 6.3 7.1 RBC 2.88* 3.05* 3.18* HGB 9.8* 10.4* 10.8* HCT 29.3* 31.0* 32.4* MCV 101.4* 101.5* 101.6* RDW 13.8 13.4 13.6 PLT 201 213 223 BMP: Recent Labs 10/13/2230710/14/22 0144 10/15/22 0435 NA 138 139 140 [...] Wt 105 lb 8 oz (47.9 kg) RlZ128% BMI 20.60 kg/m Pulse Ox: SpO2 Av.5 [...] ordered. PT OT evaluated the patient recommended shelter facility. -am labs, replace lytes prn -increase activity -DVT prophylaxis: [] Lovenox [] Heparin [] SCDs [x] Encourage ambulation [] Already on Anticoagulation Anticipated Discharge - Date - tomorrow - Location -shelter facility - Pending the following -clinical improvement/placement Total time spent (which include face to face and non face to face encounters) : 25 minutes Toxic drug monitoring/narrow therapeutic index drug monitoring : # Drug name : # Route administered : # Method of monitoring : Extended Emergency Contact Information Primary Emergency Contact: [employer] Relation: Son Preferred language: Belgian Ticker Installer needed? No Eder Monterroso MD Division of Hospitalist Medicine [facility] PAGER: Epic chat * Brittni Javed, ELENITA [...] assess Fluid Accumulation: No significant fluid accumulation Acid Patroller Strength: Not Performed Nutrition Assessment: Pt is very pleasant, appeared in no distress this afternoon with visitor at bedside. Pt's diet was advanced to solids today- GI [place], low fiber. Pt reported that she ordered [...] (kg): 49.4 kg Total Energy Requirements (kcals/day): 1162-3126 (30-35 kcal/kg CBW) Weight Used for Protein [...] 110# UBW) % Weight Change (Calculated): -4.5 Debary Body Weight (lbs) (Calculated): 100 lbs Debary Body Weight (Kg) (Calculated): 45 kg % Debary Body Weight (Calculated): 105 % BMI (kg/m2) [...] Oral Nutrition Supplement Brittni Javed RD Contact: *[phone] or via Secure Chat * Hayden Steen [...] Wt 47.9 kg (105 lb 8 oz) UgY266% BMI 20.60 kg/m TEMPERATURE: Current - Temp: [...] note were not included. Hospitalist Progress Note 10/14/[id number]: Please secure chat me for patient care issues. [phone]: Please secure chat [facility] Hospitalist for any issues. Subjective: Admit Date: 10/10/2022 PCP: Saida Gardiner Room#: B2-259/B2-259 A Interval History: Patient is lying on the bed, abdominal pain is better. Complaining of multiple episodes of diarrhea. Denies any nausea or vomiting. No other significant overnight issues. Adult diet Full liquid @YVDB4UCSMZZ@ 24HR INTAKE/OUTPUT: No intake or output data in the 24 hours ending 10/14/22 1342 Past Medical History: Past Medical History: Diagnosis Date CAD (coronary artery disease) Hypothyroidism Ischemic colitis (HCC) LABS: CBC: Recent Labs 10/12/22 0610/13/22 0308 10/14/22 0144 WBC 12.3* 7.8 6.3 RBC 2.91* 2.88* 3.05* HGB 10.1* 9.8* 10.4* HCT 30.0* 29.3* 31.0* MCV 103.0* 101.4* 101.5* RDW 13.7 13.8 13.4 PLT 205 201 213 BMP: Recent Labs 10/12/22 0610/13/22 0308 10/14/22 0144 NA 141 138 139 [...] ordered. PT OT evaluated the patient recommended shelter facility. -am labs, replace lytes prn -increase activity -DVT prophylaxis: [] Lovenox [] Heparin [] SCDs [x] Encourage ambulation [] Already on Anticoagulation Anticipated Discharge - Date -1 to 2 days - Location -shelter facility - Pending the following -clinical improvement/placement Total time spent (which include face to face and non face to face encounters) : 25 minutes Toxic drug monitoring/narrow therapeutic index drug monitoring : # Drug name : # Route administered : # Method of monitoring : Extended Emergency Contact Information Primary Emergency Contact: Ganga Judge Mobile Relation: Son Preferred language: Belgian Ticker Installer needed? No Eder Monterroso MD Division of Hospitalist Medicine [facility] PAGER: [employer] chat * Laura Brown, OT - 10/14/2022 11:34 AM EDT Occupational Therapy Facility/Department: [facility] 2E Occupational Therapy Initial Evaluation NAME: Katherine Judge : 1935 Date of Service: 10/14/2022 Discharge Recommendations: Senior Care Facility OT Equipment Recommendations Equipment Needed: No [...] assistance Functional Mobility Comments: Pt ambualting with SYSTEMS ARCHITECT and min A for balance short distance to/from [facility]. No true LOB noted however pt [...] ADLs, and min A with toileting at [facility] d/t fatigue level. [facility] mod A for threading BLE [...] needed Therapy Time Individual Co-treatment Time In 936 Time Out 0950 Minutes 13 POC supervision [...] Vines DO 10/13/2022 2:25 PM * Ranjeet Tobar DO - 10/13/2022 12:48 PM EDT Images from the original note were not included. Hospitalist Progress Note 10/13/2022 [phone]: Please page me ([phone]) for patient care issues. [phone]: Please page [facility] Hospitalist for any issues. Subjective: Admit Date: [...] Ganga Judge Mobile Relation: Son Preferred language: Belgian Ticker Installer needed? No Ranjeet Tobar DO Division of Hospitalist Medicine Inpatient Medical Services/[facility] PAGER: Epic chat * Santa Del Rosario, PT - 10/12/2022 2:48 PM EDT Physical Therapy Facility/Department: [address] Physical Therapy Initial Evaluation NAME: Katherine Judge : 1935 Date of Service: 10/12/2022 Discharge Recommendations: Senior Care Facility, Continue to assess pending progress PT [...] note were not included. Hospitalist Progress Note 10/12/20226994893-9608: Please page me ([phone]) for patient care issues. [phone]: Please page [facility] night Hospitalist for any issues. Subjective: Admit [...] Ganga Judge Mobile Relation: Son Preferred language: Belgian Ticker Installer needed? No Ranjeet Tobar DO Division of Hospitalist Medicine Inpatient Medical Services/[facility] PAGER: Epic chat * Kiana Wagner RD [...] assess Fluid Accumulation: No significant fluid accumulation Acid Patroller Strength: Not Performed Nutrition Assessment: 87 year old woman with PMHx: CAD, colitis, hypothyroidism. Presented to [facility] with worsening abdominal pain (achy and crampy). [...] (kg): 49.4 kg Total Energy Requirements (kcals/day): 6860-8064 (30-35 kcal/kg CBW) Weight Used for Protein [...] 110# UBW) % Weight Change (Calculated): -4.5 Debary Body Weight (lbs) (Calculated): 100 lbs Debary Body Weight (Kg) (Calculated): 45 kg % Debary Body Weight (Calculated): 105 % BMI (kg/m2) [...] to determine Kiana Wagner RDN, LDN, Contact: *[phone] * Ron Vines DO - 10/12/2022 10:20 [...] Vines DO 10/12/2022 10:20 AM * Sylvain Mirza RPh - 10/12/2022 8:06 AM EDT Pharmacy Vancomycin Consult Follow-Up Note Non-HOME RESTORATION SERVICE SUPERVISOR Patients Current Dosinmg q24h CREATININE Date Value [...] random level with am labs. * Ranjeet Tobar DO - 10/11/2022 12:22 PM EDT Images from the original note were not included. Hospitalist Progress Note 10/11/2022 0314-2085: Please page dc ([phone]) for patient care issues. [phone]: Please page [facility] Hospitalist for any issues. Subjective: Admit Date: [...] Ganga Judge Mobile Relation: Son Preferred language: Belgian Ticker Installer needed? No Ranjeet Tobar DO [facility] Medicine Inpatient Medical Services/[facility] PAGER: Epic chat * Andreia Hay RN - 10/11/2022 9:18 AM EDT Attempted two IV starts, call HOME RESTORATION SERVICE SUPERVISOR to place for antibiotics. ] * Sylvain Mirza [facility] - 10/11/2022 7:03 AM EDT Pharmacy Vancomycin Consult Follow-Up Note Non-HOME RESTORATION SERVICE SUPERVISOR Patients Current Dosinmg x1 -> 750mg q24hr [...] and continue to follow. documented in this [facility]09-07-2023 Hospital Discharge instructions* Discharge Instr - Activity* [...] Ganga Judge Mobile Relation: Son Preferred language: Belgian Ticker Installer needed? No Past Surgical History: Past Surgical [...] assistance Toileting Minimal assistance Feeding Minimal assistance Roving Technician Minimal assistance Med Delivery yes Wound Care [...] Score: @READMISSIONRISKDETAILS@ Discharging to Facility/ Agency Name: [facility] Address: [address], [place] [address] Dialysis Facility (if applicable) Name: Address: Dialysis Schedule: Phone: Fax: Security Attendant/Incinerator Plant General Supervisor signature: ICIAN SECTION Prognosis: good Condition at Discharge: stable Rehab Potential (if transferring to Rehab): good Recommended Labs or Other Treatments After Discharge: continue prn Bowel regime Physician Certification: I certify the above information and transfer of Katherine Judge is necessaryfor the continuing treatment of the diagnosis listed and that she requires shelter facilityfor less than 30 days. Update Admission H&P: No change in H&P PHYSICIAN SIGNATURE: documented in this encounterSUniversity Hospitals TriPoint Medical [id number] Note* Care Coordination - BRANDON Alvarez - 10/16/2022 11:52 AM EDT Dc to [facility] this afternoon at 2:00. [facility] to transport. Ambulancetransport form completed. Careport messaged [facility] with the dc time.Spoke with patients son to discuss dc arrangements and potato picker time. Report number provided to the bedside nurse. [facility] [id number] Miscellaneous Notes* Care Coordination - BRANDON Alvarez - 10/16/2022 11:52 AM EDT Dc to [facility] this afternoon at 2:00. [facility] to transport. Ambulancetransport form completed. Careport messaged [facility] with the dc time.Spoke with patients son to discuss dc arrangements and potato picker time. Report number provided to the bedside nurse. * Care Coordination - Unknown Case Management - 10/16/2022 10:35 AM EDT Patient Choice Patient Name: KATHERINE JUDGE Date of : 1935 All Providers Sent Referral Name: [facility] Phone: [phone] Address: [address] [place] [id number] Name: [facility] Phone: [phone] Address: [address] [place], [place] [address] Name: [facility], [facility]. Address: [address] [place] [address] * Care Coordination - Stef Cox - 10/16/2022 8:51 AM EDT Discharge med list transmitted to [facility] via Careport per TCC request. 7000 was entered into [facility] for the SNF- Facility is aware. * Care Coordination - Joy Longo RN - 10/16/2022 8:20 AM EDT Images from the original note were not included. Care Management Progress Note Pt has discharge order. Pt to transfer to [facility]. [facility] notified to complete 7000 & to send discharge paperwork. DIRECTOR SUPPLY notified to set up transport. [facility] notified of discharge. Discharge Milestones and Delays Expected Date/Time: 10/16/2022 Morning Disposition: Senior Care Facility Transport status: No current request Discharge [...] 3:30 PM EDT Spoke with Lesley at [facility] & they can accept pt on 10/16. Notified pt & she asked TCC to follow up with her son. Notified son & he is agreeable.Notified attending, RN & DIRECTOR SUPPLY via secure chat. * Care Coordination - Stef Cox - 10/15/2022 11:37 AM EDT Referral placed to SNF- [facility] sent to [facility] via [facility] per TCC request. Await review and response regarding ability to accept. TCC notified. * Care Coordination - Joy Longo RN - 10/15/2022 11:35 AM EDT Received call from pt son & they would like referral to [facility]. DIP UNIT OPERATOR tasked to make referral. * Care Coordination - Joy Longo RN - 10/15/2022 10:29 AM EDT Images from the original note were not included. Care Management Progress Note Pt remains on 2E due to abd pain-improving. Constipation-resolved. Follow up CXR for moderate to large pleural effusions. Met with pt to discuss SNF choices. Pt choices are [facility]. Notified DIP UNIT OPERATOR to make referrals. Await response from SNF [...] 10:26 AM EDT Referral placed to SNF- [facility] via Careport per TCC request. Await review and response regarding ability to accept. TCC notified. * Care Coordination - Remy Whitney RN - 10/14/2022 4:12 PM EDT Care Managment Initial Assessment Date: 10/14/2022 Patient Name: Katherine Judge : 1935 Patient Information Source of Information: Patient Cognition/Language: WFL - Within Functional Limits Permission given to speak with patient pharmaceutical service representative/caregiver as indicated: Yes (Ganga Judge, son, ) Confirmation of Payer with patient/family: Yes Payer Name: Medicare [place]: No (Spouse is a . Made referral [...] Living Prescription Coverage: Yes Pharmacy Used: [facility] [place] Medication Management: Independent Transportation/Shopping: Independent Transportation Mode: [...] Information: Chart reviewed. Patient admitted to [facility] for treatment of Proctocolitis. Full liquid diet. PT/OT recommends SNF. Met with patient at bedside. Explained role. She is very pleasant. 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 Reports her son is helpful and [...] continue current care plan. documented in this [facility]09-07-2023 Note* Care Coordination - Unknown Case Management - 10/16/2022 10:35 AM EDT Patient Choice Patient Name: KATHERINE JUDGE Date of : 1935 All Providers Sent Referral Name: [facility] Phone: [phone] Address: [address] [place] [address] Name: [facility] Phone: [phone] Address: [address] [place] [address] Name: [facility], [facility]. Address: [address] [place] [address] [facility] HospitalLtxrzd79-04-8542 NoteCare Management Progress Note Pt has discharge order. Pt to transfer to [facility]. [facility] notified to complete 7000 & to send discharge paperwork. DIRECTOR SUPPLY notified to set up transport. [facility] notified of discharge. Discharge Milestones and Delays Expected Date/Time: 10/16/2022 Morning Disposition: Senior Care Facility Transport status: No current request Discharge [...] PM Length of Stay (Days): 6 [facility]* Care Coordination - Stef Cox - 10/16/2022 8:51 AM EDT Discharge med list transmitted to SNF-[facility] via Careport per TCC request. 7000 was entered into [place] [facility] for the SNF- Facility is aware. [facility] [id number] Note* Care Coordination - Joy Longo RN - 10/16/2022 8:20 AM EDT Images from the original note were not included. Care Management Progress Note Pt has discharge order. Pt to transfer to [facility]. [facility] notified to complete 7000 & to send discharge paperwork. DIRECTOR SUPPLY notified to set up transport. [facility] notified of discharge. Discharge Milestones and Delays Expected Date/Time: 10/16/2022 Morning Disposition: Senior Care Facility Transport status: No current request Discharge [...] Length of Stay (Days): 6 GMLOS: 2.6 [facility] HospitalKslktu86-49-9869 Hospital course Narrative* Eder Monterroso MD - [...] baseline PT OT evaluated the patient recommended shelter facility. Discharged in stable condition CONSULTANTS: GI [...] Your Medications These medications were sent to [facility] [address] [place] [id number] Hours: Thursday to Thursday 10 am to 6 pm polyethylene glycol (PEG) 3350 17 g packet simethicone 80 MG chewable tablet DIET: Adult diet Regular; Low Fiber ACTIVITY: Up with assist COMPLEXITY OF FOLLOW UP: [] Moderate Complexity: follow up within 7-14 calendar days (20708) [] Severe Complexity: follow up within 7 calendar days (05470) FOLLOW UP TESTING, PENDING RESULTS OR REFERRALS [...] MD 10/16/2022, 8:14 AM documented in this [facility]09-06-2023 NoteHospitalist Progress Note 10/15/2022 2155-2090: Please secure chat me for patient care issues. : Please secure chat [facility] Hospitalist for any issues. Subjective: Admit Date: 10/10/2022 PCP: Saida Gardiner Room#: B2-259/B2-259 A Interval History: Patient is lying on the bed, abdominal pain continues to improve. Denies any nausea or vomiting. Tolerating p.o. diet well. Diarrhea also improved. No other significant overnight issues. Adult diet Regular; Low Fiber @HBOO3BDBCPD@ 24HR INTAKE/OUTPUT: Intake/Output Summary (Last 24 hours) [...] PLT 201 213 223 BMP: Recent Labs 10/13/2230710/14/2214310/15/22 0435 NA 138 139 140 K 4.5 [...] ordered. PT OT evaluated the patient recommended shelter facility. -am labs, replace lytes prn -increase activity -DVT prophylaxis: [] Lovenox [] Heparin [] SCDs [x] Encourage ambulation [] Already on Anticoagulation Anticipated Discharge - Date - tomorrow - Location -shelter facility - Pending the following -clinical improvement/placement Total time spent (which include face to face and non face to face encounters) : 25 minutes Toxic drug monitoring/narrow therapeutic index drug monitoring : # Drug name : # Route administered : # Method of monitoring : Extended Emergency Contact Information Primary Emergency Contact: Ganga Judge Mobile Relation: Son Preferred language: Belgian Ticker Installer needed? No Eder Monterroso MD Division of Hospitalist Medicine [employer] [facility] [employer] PAGER: [facility]09-06-2023 Note* Care Coordination - Joy Longo RN - 10/15/2022 3:30 PM EDT Spoke with Lesley at [facility] & they can accept pt on 10/16. Notified pt & she asked TCC to follow up with her son. Notified son & he is agreeable.Notified attending, RN & DIRECTOR SUPPLY via secure chat. [facility] HospitalWtgpve62-67-[address] [facility]. Await review and response regarding ability to accept. TCC notified. [place] [address]-06-2023 NoteReceived call from pt son & they would like referral to [facility]. DIP UNIT OPERATOR tasked to make referral. [place] [address]-06-2023 NoteProgress Note SUBJECTIVE: No acute events overnight. [...] based on abdominal discomfort and tolerating diet [facility]09-06-2023 NoteCare Management Progress Note Pt remains on 2E due to abd pain-improving. Constipation-resolved. Follow up CXR for moderate to large pleural effusions. Met with pt to discuss SNF choices. Pt choices are [facility]. Notified DIP UNIT OPERATOR to make referrals. Await response from SNF [...] PM Length of Stay (Days): 5 GMLOS: [address] [place], [place] [address]-06-2023 NoteReferral placed to SNF- [facility] via Careport per TCC request. Await review and response regarding ability to accept. TCC notified. [facility]09-06-2023 Note* Care Coordination - Stef Cox - 10/15/2022 11:37 AM EDT Referral placed to SNF- [facility] sent to SNF- [facility] via Careport per TCC request. Await review and response regarding ability to accept. TCC notified. [facility] HospitalXnczgh37-15-2356 Note* Care Coordination - Joy Longo RN - 10/15/2022 11:35 AM EDT Received call from pt son & they would like referral to [facility]. DIP UNIT OPERATOR tasked to make referral. [facility] HospitalOsgbyq79-62-3352 Note* Care Coordination - Joy Longo RN - 10/15/2022 10:29 AM EDT Images from the original note were not included. Care Management Progress Note Pt remains on 2E due to abd pain-improving. Constipation-resolved. Follow up CXR for moderate to large pleural effusions. Met with pt to discuss SNF choices. Pt [facility] are [facility] Notified DIP UNIT OPERATOR to make referrals. Await response from SNF [...] Length of Stay (Days): 5 GMLOS: 2.6 [employer] [id number] Note* Care Coordination - Stef Cox - 10/15/2022 10:26 AM EDT Referral placed to SNF- [facility] via Careport per TCC request. Await review and response regarding ability to accept. TCC notified. [employer] [id number] Note* Care Coordination - Remy Whitney RN - 10/14/2022 4:12 PM EDT Care Managment Initial Assessment Date: 10/14/2022 Patient Name: Katherine Judge : 1935 Patient Information Source of Information: Patient Cognition/Language: WFL - Within Functional Limits Permission given to speak with patient pharmaceutical service representative/caregiver as indicated: Yes (Ganga Judge, son, [...] Prescription Coverage: Yes Pharmacy Used: [facility] Medication Management: Independent Transportation/Shopping: Independent Transportation Mode: [...] Information: Chart reviewed. Patient admitted to [facility] for treatment of Proctocolitis. Full liquid diet. PT/OT recommends SNF. Met with patient at bedside. Explained role. She is very pleasant. 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 Reports her son is helpful and lives 20 minutes away. Independent with adls. She does not drive. +PCP, +RX cov, +DME. Discussed SNF. Patient interested. But, wants to discuss with son first. Served Medicare Choice listing. No insurance authorization required to admit to SNF. DC plan: TBD Home with Home care vs SNF Tasked RAGINI perez to follow Remy Whitney RN [facility] HospitalZlpdui60-04-4484 NoteHospitalist Progress Note 10/14/2022 [phone]: Please secure chat dc for patient care issues. [phone]: Please secure chat [facility] Hospitalist for any issues. Subjective: Admit Date: 10/10/2022 PCP: Saida Gardiner Room#: B2-478/B2-989 A Interval History: Patient is lying on the bed, abdominal pain is better. Complaining of multiple episodes of diarrhea. Denies any nausea or vomiting. No other significant overnight issues. Adult diet Full liquid @WCNB6TUQRWC@ 24HR INTAKE/OUTPUT: No intake or output data in the 24 hours ending 10/14/22 1342 Past Medical History: Past Medical History: Diagnosis Date CAD (coronary artery disease) Hypothyroidism Ischemic colitis (HCC) LABS: CBC: Recent Labs 09/0363210/13/22 03010/14/22143 WBC 12.3* 7.8 6.3 RBC 2.91* 2.88* 3.05* HGB 10.1* 9.8* 10.4* HCT 30.0* 29.3* 31.0* MCV 103.0* 101.4* 101.5* RDW 13.7 13.8 13.4 PLT 205 201 213 BMP: Recent Labs 10/12/2263210/13/2230710/14/22143 NA 141 138 139 K 4.4 4.5 [...] ordered. PT OT evaluated the patient recommended shelter facility. -am labs, replace lytes prn -increase activity -DVT prophylaxis: [] Lovenox [] Heparin [] SCDs [x] Encourage ambulation [] Already on Anticoagulation Anticipated Discharge - Date -1 to 2 days - Location -shelter facility - Pending the following -clinical improvement/placement Total time spent (which include face to face and non face to face encounters) : 25 minutes Toxic drug monitoring/narrow therapeutic index drug monitoring : # Drug name : # Route administered : # Method of monitoring : Extended Emergency Contact Information Primary Emergency Contact: Ganga Judge Mobile Relation: Son Preferred language: Belgian Ticker Installer needed? No Eder Monterroso MD Division of Hospitalist Medicine [employer] [facility] [employer] PAGER: [employer] [phone] NoteGASTROENTEROLOGY PROGRESS NOTE Patient: Katherine Judge : [...] signed by Ron Vines DO 10/13/2022 2:25 [facility] [id number] NoteHospitalist Progress Note 10/13/20226991599-5887: Please page me ([phone]) for patient care issues. [phone]: Please page [facility] Hospitalist for any issues. Subjective: Admit Date: [...] colitis (HCC) LABS: CBC: Recent Labs 10/11/22 03310/12/2233 10/13/22 0308 WBC 15.1* 12.3* 7.8 RBC 3.59* 2.91* 2.88* HGB 11.8 10.1* 9.8* HCT 36.6 30.0* 29.3* MCV 102.1* 103.0* 101.4* RDW 14.1 13.7 13.8 PLT 195 205 201 BMP: Recent Labs 10/11/22 03310/12/2233 10/13/22 0308 NA 140 141 138 K [...] [] Already on Anticoa (more content not included)...[facility] 10-12-2022 NoteHospitalist Progress Note 10/12/2022 [phone]: Please page me ([phone]) for patient care issues. [phone]: Please page [facility] Hospitalist for any issues. Subjective: Admit Date: [...] Ischemic colitis (CMS/HCC) LABS: CBC: Recent Labs 10/10/22145310/11/2233010/12/22 0633 WBC 16.9* 15.1* 12.3* RBC 3.65* 3.59* 2.91* HGB 12.6 11.8 10.1* HCT 37.3 36.6 30.0* MCV 102.0* 102.1* 103.0* RDW 14.2 14.1 13.7 PLT 217 195 205 BMP: Recent Labs 10/10/22145310/11/22 0331 10/12/22 0633 NA 142 140 141 K 4.1 4.0 4.4 CL 103 107 110* CO2 30 28 25 BUN 22* 17 21* CREATININE 0.94 0.72 0.97 GLUCOSE 110* 86 107* CALCIUM 8.9 8.2* 7.9* ANIONGAP 8 4 6 LIVER PROFILE: Recent Labs 10/10/22 14510/11/22 033 AST 24 21 ALT 14 12 [...] Mobile Relation: Son Pre (more content not included)...[facility]09-03-2023 Note GASTROENTEROLOGY PROGRESS NOTE Patient: Katherine Judge [...] signed by Ron Vines DO 10/12/2022 10:20 [facility] [id number] Consult note* Marilu Whitaker RPh - 10/12/2022 12:14 PM EDT Vancomycin therapy has been discontinued by Dr. Tobar on 10-12-22. Thank you for the consult. Pharmacy signing off for vancomycin dosing. Marilu Whitaker RPh, Date: 10/12/22 Time: 12:14 PM [place] [id number] Consult note* Marilu Whitaker, [facility] - 10/12/2022 12:14 PM EDT Vancomycin therapy has been discontinued by Dr. Tobar on 10-12-22. Thank you for the consult. Pharmacy signing off for vancomycin dosing. Marilu Whitaker [facility], Date: 10/12/22 Time: 12:14 PM * Ron Vines, DO - 10/11/2022 11:11 AM EDTAssociated Order(s): [...] BID, Ranjeet Tobar DO, 50 mg at 10/11/22953 mirtazapine (Remeron) tablet 30 mg, 30 mg, [...] to 1 cm in diameter, similar to 202. Spleen: Not enlarged. 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 year [...] Will continue to follow. documented in this encounterSUniversity Hospitals TriPoint Medical [id number] Plan of care note* Care Plan - [...] address these barriers include encourage fluids . [facility] HospitalAwktek51-49-7560 NoteHospitalist Progress Note 10/11/[phone]: Please page me ([phone]) for patient care issues. [phone]: Please page [facility] Hospitalist for any issues. Subjective: Admit Date: [...] CAD (coronary artery disease) Hypothyroidism Ischemic colitis ([facility] LABS: CBC: Recent Labs 10/10/22 [...] Ganga Judge Mobile Relation: Son Preferred language: Belgian Ticker Installer needed? No Ranjeet Tobar DO Division of Hospitalist Medicine Inpatient Medical Services/[facility] PAGER: [facility] [phone] NoteGASTROENTEROLOGY CONSULTATION REASON FOR CONSULT: The patient [...] 20 mEq, 20 mEq, Oral, Daily, Ranjeet Tboar DO, 20 mEq at 10/11/22 1001 se (more content not included)...[facility]09-02-2023 Consult note * Ron Vines, - 10/11/2022 11:11 AM EDTAssociated Order(s): IP [...] mg, 650 mg, Rectal, q6h PRN, Akil uLcio MD atorvastatin (Lipitor) tablet 10 mg, 10 [...] by Ron Vines DO 10/11/2022 11:11 AM [facility]09-01-2023 NoteAttending History and Physical Admit Date: 10/10/2022 [...] the last 72 hours. (more content not included)...[facility] [id number] Plan of care note* Care Plan - [...] these barriers include continue current care plan. 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 year [...] for the consult. Will continue to follow. [facility] HospitalJjvhie20-46-5210 History and physical note* Akil Lucio MD [...] Ganga Judge Mobile Relation: Son Preferred language: Belgian Ticker Installer needed? No Code status: No Order -see [...] H&P to the patient's PCP. Thank you. [employer] Work Phone: [phone] History and physical note* Akil Lucio MD [...] Ganga Judge Mobile Relation: Son Preferred language: Belgian Ticker Installer needed? No Code status: No Order -see [...] patient's PCP. Thank you. documented in this encounterSUniversity Hospitals TriPoint Medical CenterZegdra79-88-2000 Emergency department Note* NADIYA Cleary - 10/10/2022 2:19 PM EDT Guided family back NADIYA Cleary 10/10/22 1419 [facility] HospitalSqibce00-42-8543 Emergency department Note* NADIYA Cleary - 10/10/2022 2:19 PM EDT Guided family back NADIYA Cleary 10/10/22 1419 * Evelin Salcedo DO - 10/10/2022 1:26 PM EDT Emergency Department Encounter [facility] ED Patient: Katherine Judge : 1935 Date [...] Culture. Procedure Abnormality Status --------- ------ Complete Urinalysis[[id number]] Please view results for these tests on [...] Oneal PA-C 10/10/22 1729 documented in this [facility]09-01-2023 Physician Emergency department Note* Evelin Salcedo DO - 10/10/2022 1:26 PM EDT Emergency Department Encounter [facility] ED Patient: Katherine Judge : 1935 Date of Evaluation: 10/10/2022 ED Supervising Physician: Evelin Slacedo DO I independently examined and evaluated Katherine [...] for clarification.) Evelin Salcedo DO [facility] Evelin Salcedo DO 10/10/222130 [employer] Phone: [phone] Physician Emergency department Note* Celeste Oneal PA-C [...] Culture. Procedure Abnormality Status --------- ------ Complete Urinalysis[[id number]] Please view results for these tests on [...] Medicine Provider Celeste Oneal PA-C 10/10/22 1729 [facility] HospitalMzmgks49-94-4606 Evaluation + Plan note* Assessment & Plan Note - Yana Case - 10/07/2022 2:57 PM EDTAssociated Problem(s): Lower abdominal pain Recurrent, to return to established GI (Dr. Garcia) for further evaluation. [facility] Work Phone: [phone] Miscellaneous Notes* Assessment & Plan Note - [...] Allergy/immunology referral placed today. 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 Repeat labs to be done prior to 6 month follow-up. [facility] Work Phone: [phone] Evaluation + Plan note* Assessment & Plan Note - Yana Case - 10/07/2022 2:47 PM EDTAssociated Problem(s): Benign essential hypertension BP is under good control, 122/70 in office today. Continue present regimen. T [facility] Work Phone: [phone] Evaluation + Plan note* Assessment & Plan [...] daily and calcium at 1500 mg daily. [facility] Work Phone: [phone]) [phone] Evaluation + Plan note* Assessment & Plan Note - Yana Case - 10/07/2022 2:23 PM EDTAssociated Problem(s): Chronic kidney disease, stage III (moderate) ([facility]/HCC) 05/2022 labs at baseline for patient. Will continue to monitor on regular basis. Revisited good BP control, avoiding NSAIDs, and adequate hydration as measures to further protect kidneys. [facility] Work Phone: [phone] Evaluation + Plan note* Assessment & Plan Note - Yana Case - 10/07/2022 2:22 PM EDTAssociated Problem(s): Hypercholesterolemia 05/2022 TC/HDL ratio 3.3, LDL 84, TRIG 135 Goal TC/HDL ratio 3.4 or less, LDL 99 or less, TC 200 or less, and TRIG 150 or less. Continue current regimen of Atorvastatin, Isosorbide, and Plavix. Continue heart healthy diet Continue exercise as tolerated [facility] Work Phone: [phone] Evaluation + Plan note* Assessment & Plan [...] heart healthy diet Continue exercise as tolerated [facility] Work Phone: [phone] Evaluation + Plan note* Assessment & Plan [...] nasal sprays. 4. Allergy/immunology referral placed today. [facility] Work Phone: [phone] History of Present illness Narrative* Christ E Rashad Agosot, DO - 10/07/2022 1:30 PM EDT Subjective [...] cardiology ECHO 03/2022 LV 60-65%, impaired relaxation, cbt-zf-cklzbl prolapse of the P2 segment of the [...] of Christ Gardiner DO. documented in this [facility] Work Phone: [phone] Instructions* Patient Instructions* Christ Gardiner DO - [...] sooner follow-up if needed. [facility] [place] Work Phone: [phone] Evaluation + Plan note* Assessment & Plan [...] repeat CXR ordered to be done 06/29/2022. [facility] Work Phone: [phone] Miscellaneous Notes* Assessment & Plan Note - [...] to be done 06/29/2022. documented in [facility] [place] Work Phone: [phone] Evaluation + Plan note* Assessment & Plan Note - Yana Case - 06/19/2022 11:03 AM EDTAssociated Problem(s): Abdominal pain (Resolved 06/19/2022) Reported at prior visit; she denies any abdominal pain or GI symptoms at visit today. No further work-up indicated at this time. [facility] Work Phone: [phone] Evaluation + Plan note* Assessment & Plan Note - Yana Manpreet - 06/19/2022 10:59 AM EDTAssociated Problem(s): Hypoxia (Resolved 06/19/2022) Hypoxia associated with pneumonia diagnosed 05/30/2022 Patient has completed treatment with Levaquin. O2 91% at rest in office today, patient reports O2 averaging 91-94 at home. Physical exam is reassuring today, patient reports that she is improved symptomatically. Repeat CXR ordered to be done 06/29/2022. [facility] Work Phone: [phone] History of Present illness Narrative* Christ Gardiner, [...] ordered 05/30/2022 Patient to meet with our detonator assembler today to get sooner follow-up with cardiology [...] HENT: Head: Normocephalic and atraumatic. Mouth/Throat: Lips: [place]. Mouth: Mucous membranes are moist. Eyes: Extraocular [...] of Christ Gardiner DO. documented in this [facility] [place] Work Phone: [phone] History of Present illness Narrative* 06/12/22: Mrs Judge is an 87 year old female with anemia, mitral regurg, rheumatic fever as a child, hypothyroidism, hypertension, hyperlipidemia, [place],m CAD, CABG and then an angioplasty after [...] fever as a child, hypothyroidism, hypertension, hyperlipidemia, [place],m CAD, CABG and then an angioplasty after [...] fever as a child, hypothyroidism, hypertension, hyperlipidemia, [place],m CAD, CABG and then an angioplasty after [...] with a PMH of anemia, hypothyroidism,hypertension, hyperlipidemia, [place], CAD, CABG, then an angioplasty after CABG, carotid artery disease, CVA, CKD, chronic colitis, osteoporosis, insomnia and peripheral neuropathy, here for a routine follow up. She denies any complaints of chest pain, shortness of breath, palpitations, lower extremityedema, dizziness or syncopal episodes. She reports elevated home BP readings. Today, her BP is 144/74. Her weight is up 5 lbs since December. [facility] [address] [place] Work Phone: [phone] Evaluation + Plan note* Assessment & Plan Note - Yana Case - 06/10/2022 3:02 PM EDTAssociated Problem(s): Benign essential hypertension BP is under good control, 130/62 in office today. Continue present regimen. [facility] Work Phone: [phone] Miscellaneous Notes* Assessment & Plan Note - [...] check in 7-10 days. documented in this [facility] Work Phone: [phone] Evaluation + Plan note* Assessment & Plan [...] to go to the ER for evaluation. [facility] Work Phone: [phone] Evaluation + Plan note* Assessment & Plan [...] at her next check in 7-10 days. [facility] Work Phone: [phone] Evaluation + Plan note* Assessment & Plan Note - Yana Manpreet - 06/10/2022 2:55 PM EDTAssociated Problem(s): Pneumonia [...] at her next check in 7-10 days. [facility] Work Phone: [phone] History of Present illness Narrative* Christ Gardiner [...] ordered 05/30/2022 Patient to meet with our detonator assembler today to get sooner follow-up with cardiology [...] of Christ Gardiner DO. documented in this [facility] [place] Work Phone: [phone] Instructions* Patient Instructions* Yana Case - 06/10/2022 [...] today. Continue present regimen. documented in [facility] [place] Work Phone: [phone] Evaluation + Plan note* Assessment & Plan [...] today. Will have patient meet with our detonator assembler today to get sooner follow-up with cardiology in the next1-2 weeks, she is already established here at . Follow-up with me in 1 week. T [facility] Work Phone: [phone] Miscellaneous Notes* Assessment & Plan Note - [...] today. Will have patient meet with our detonator assembler today to get sooner follow-up with cardiology [...] DO - 05/30/2022 2:30 PM EDT Addendum 23-23 Poss r lobe infiltrate Called [...] pulse ox at home) documented in this [facility] [place] Work Phone: [phone] Evaluation + Plan note* Assessment & Plan Note - Yana Case - 05/30/2022 3:57 PM EDTAssociated Problem(s): Osteoporosis Due to hypoxia when rooming today will defer osteoporosis discussion until this work up is complete. [facility] Work Phone: [phone] Evaluation + Plan note* Assessment & Plan Note - Yana Case - 05/30/2022 3:53 PM EDTAssociated Problem(s): Benign essential hypertension BP under good control, however, due to patient being hypoxic, will increase Doxazosin from 1 mg to 2 mg daily. Continue Metoprolol 25 BID and Lasix. [facility] Work Phone: [phone] History of Present illness Narrative* Christ Gardiner [...] today. Will have patient meet with our detonator assembler today to get sooner follow-up with cardiology [...] pulse ox at home) documented in this [facility]UnN[facility] Work Phone: [phone] Progress note* Result Encounter Note - Christ [...] monitoring sx and pulse ox at home) [facility] Work Phone: [phone] Evaluation + Plan note* Assessment & Plan Note - Yana Case - 04/15/2022 3:28 PM ESTAssociated Problem(s): Routine general medical examination at health care facility Vaccines and screenings reviewed DEXA ordered [facility] Work Phone: [phone] Miscellaneous Notes* Assessment & Plan Note - Yana Case - 04/15/2022 3:28 PM ESTAssociated Problem(s): Routine general medical examination at [facility] care facility Vaccines and screenings reviewed [...] at 1500 mg daily. documented in this [facility] [place] Work Phone: [phone] Evaluation + Plan note* Assessment & Plan Note - Yana Case - 04/15/2022 3:19 PM ESTAssociated Problem(s): Hypercholesterolemia Continue current regimen Repeat lipid panel ordered today. [facility] Work Phone: [phone] Evaluation + Plan note* Assessment & Plan Note - Yana Case - 04/15/2022 3:18 PM ESTAssociated Problem(s): Anemia in other chronic diseases classified elsewhere Repeat CBC ordered today [facility] Work Phone: [phone] Evaluation + Plan note* Assessment & Plan Note - Yana Case - 04/15/2022 3:17 PM ESTAssociated Problem(s): Chronic kidney disease, stage III (moderate) (CMS/HCC) Repeat BMP ordered today [facility] Work Phone: [phone] Evaluation + Plan note* Assessment & Plan Note - Yana Case - 04/15/2022 3:14 PM ESTAssociated Problem(s): GERD (gastroesophageal reflux disease) Continue Pantoprazole + Famotidine Famotidine refilled today Continue to follow-up with GI [facility] Work Phone: [phone] Evaluation + Plan note* Assessment & Plan Note - Yana Case - 04/15/2022 3:13 PM ESTAssociated Problem(s): Benign essential hypertension BP well-controlled, continue present regimen [facility] Work Phone: [phone] Evaluation + Plan note* Assessment & Plan Note - Yana Case - 04/15/2022 3:13 PM ESTAssociated Problem(s): CAD (coronary artery disease) Repeat lipid panel ordered today. Continue current regimen Continue heart healthy diet Continue exercise as tolerated [facility] Work Phone: [phone] Evaluation + Plan note* Assessment & Plan Note - Yana Case - 04/15/2022 3:12 PM ESTAssociated Problem(s): Aortic stenosis ECHO 03/2022 Continue to follow-up with cardiology. [facility] Work Phone: [phone] Evaluation + Plan note* Assessment & Plan Note - Yana Case - 04/15/2022 3:12 PM ESTAssociated Problem(s): Insomnia Stable, continue Mirtazapine 30 mg at bedtime, refilled today. [facility] Work Phone: [phone] Evaluation + Plan note* Assessment & Plan [...] daily and calcium at 1500 mg daily. [facility] Work Phone: [phone] History of Present illness Narrative* Christ Gardiner [...] Christ Gardiner DO as PCP - General [facility]GANNA [place] [facility] Attributed Provider Review of Systems HENT: [...] cardiology ECHO 03/2022 LV 60-65%, impaired relaxation, pml-ft-qsgctz prolapse of the P2 segment of the [...] Attestation By signing my name below, Yana Cameronclif, Tomas attest that this documentation has been prepared under the direction and in the presence of Christ Gardiner DO. documented in this [facility] Work Phone: [phone] History of Present illness Narrative* 08/14/2021:Mrs Judge is an 86 year old female with anemia, rheumatic fever as a child, hypothyroidism, hypertension, hyperlipidemia, [place],m CAD, CABG and then an angioplasty after [...] with a PMH of anemia, hypothyroidism,hypertension, hyperlipidemia, [place], CAD, CABG, then an angioplasty after CABG, carotid artery disease, CVA, CKD, chronic colitis, osteoporosis, insomnia and peripheral neuropathy, here for a routine follow up. She denies any complaints of chest pain, shortness of breath, palpitations, lower extremityedema, dizziness or syncopal episodes. She reports elevated home BP readings. Today, her BP is 144/74. Her weight is up 5 lbs since December. [facility] [place] Work Phone: [phone] History of Present illness Narrative* 08/14/2021:Mrs Judge is an 86 year old female with anemia, rheumatic fever as a child, hypothyroidism, hypertension, hyperlipidemia, [place],m CAD, CABG and then an angioplasty after [...] with a PMH of anemia, hypothyroidism,hypertension, hyperlipidemia, [place], CAD, CABG, then an angioplasty after CABG, carotid artery disease, CVA, CKD, chronic colitis, osteoporosis, insomnia and peripheral neuropathy, here for a routine follow up. She denies any complaints of chest pain, shortness of breath, palpitations, lower extremityedema, dizziness or syncopal episodes. She reports elevated home BP readings. Today, her BP is 144/74. Her weight is up 5 lbs since December. [facility] Work Phone: [phone]) [phone] NoteHospitalist Discharge Summary Katherine Judge : 1935 [...] Discharge Medications: Katherine Judge Home Medication Instructions JOE:[id number] Printed on:10/22/20 4728 Medication Information acetaminophen (TYLENOL) 500 MG tablet [...] Complexity: follow up within 7-14 calendar days (83865) [x] Severe Complexity: follow up within 7 calendar days (41677) Follow up Testing, Pending results or Referrals [...] patient is scheduled fo (more content not included)...[facility] [employer] [id number] History of Present illness Narrative* MWV LAST [...] the past, then call my office at [phone] option 1 and we will pursue a special CT scan to look at the bloodvessels. Follow-up on an as needed basis. Trial of Dicyclomine in place of Hyoscyamine. [facility] Work Phone: [phone] History of Present illness Narrative* MWV LAST [...] in her apartment. * Patient hospitalized at [facility] 10/14-10/22/2020 with diagnosis of ischemic colitis, RADHA [...] strength. Also endorses urinary frequency. States that [facility] took specimen about 2-3 days ago. Notes [...] the past, then call my office at [phone] option 1 and we will pursue a special CT scan to look at the bloodvessels. Follow-up on an as needed basis. Trial of Dicyclomine in place of Hyoscyamine. [facility] Work Phone: [phone] 211-883102-01-2021 History of Present illness Narrative* MWV LAST [...] in her apartment. * Patient hospitalized at [facility] 10/14-10/22/2020 with diagnosis of ischemic colitis, RADHA [...] strength. Also endorses urinary frequency. States that [facility] took specimen about 2-3 days ago. Notes [...] the past, then call my office at [phone] option 1 and we will pursue a special CT scan to look at the bloodvessels. Follow-up on an as needed basis. Trial of Dicyclomine in place of Hyoscyamine. [facility] Work Phone: [phone] History of Present illness Narrative* MWV LAST [...] weight stable * checked pts home bp machie * is valid * advised pt to tighten cuff more since she has small arms - she will look for a smaller cuff * pt machine 132/59 * our machine 128/71 * Received flu shot today * Patient answered all questions prior to immunization * 1: Have you ever had Guillain-[place] syndrome? (a viral illness resulting in neurological [...] the past, then call my office at [phone] option 1 and we will pursue a special CT scan to look at the bloodvessels. Follow-up on an as needed basis. Trial of Dicyclomine in place of Hyoscyamine. * needs help with cleaning, is cooking but is hard for her * does not have meals on wheels * has heard of [employer], has not recently * awaiting medical office technician through home care, has nursing. nursing told her social work was ordered, just watiting * no falls * does use frozen dinners for dinner * usually make breakfast and lunch, nothing elaborate (sandwiches,d fruit veggies) * is having a bit of diarrhea sometimes dark but is on iron [facility] Work Phone: [phone]) [phone] History of Present illness Narrative* Health maintenance: [...] history vertebral fracture. * 02/2019 DEXA osteoporosis 03/14, normal 02/11. * -Back pain, taking Gabapentin 300 mg up to TID + Tizanidine 2 mg BID PRN for back spasms. [facility] Work Phone: chief complaint Narrative - Reportedevaluation of multiple issues.[facility] Work Phone: consult note Author Thanh [facility] Note Date/Time July 25, 2024 5:10 pm [facility] Medical Records Department [address] [place] [address] Consultation 07/25/24 1706 MR#: [id number] Acct: [id number] Name: KATHERINE JUDGE Rep #:[id number] : 1935 89 From: Thanh Mclaughlin DO PCP: Dr. Kam Ocampo Sr., DO Status:R ER Location: ED Assessment & Plan Assessment/Plan [...] years ago with Dr. Malcom Herron in [facility]. She is on Plavix [facility] Medical History (Updated 07/25/24 @ 17:08 by [...] her son who is her power of securities attorney Appearance: cooperative Extremity Extremity Narrative: Exquisitely [...] % (Auto) 69.2, Lymph % (Auto) 22.9, [place] % (Auto) 6.2, Eos % (Auto) 0.9, [...] of the proximal right femur. Reading Location: [facility] Chest X-Ray 07/25/24 15:15 IMPRESSION: Cardiomegaly and vascular congestion with atelectasis at the lung bases. [facility] 07/25/24 1710 <Electronically signed by Thanh Mclaughlin DO> Cosigner Signature (if applicable): CC: Dr. Kam Ocampo Sr., DO~ Signed [facility] Work Phone: Discharge summary Author Neymar Cunningham [facility] November 02, 2022 12:11pm Note Date/Time November 02, 2022 11:56am [facility] Medical Records Department [address] [place] [address] Transfer to [facility] MR#: [id number] Acct: [id number] Name: KATHERINE JUDGE Rep #:[id number] : 1935 87 From: Neymar Herrera PCP: [...] CAD, hypertension and depression who presented to [facility] ED from longterm on 10/30/2022 for expressive aphasia and dysarthria. [...] of ASD; bubble contrast study negative for wwjpy-fu-eyhn interatrial shunt. LA severely enlarged. EF 70%. MRI brain reports no acute or subacute ischemic infarct or acute intracranial abnormality. SOC consult ordered 2. Chronic debility Patient's family notes that she was recently hospitalized at an outside hospitalfor medical concerns unrelated to current concern for acute CVA. She was discharged to a shelter facility, with plans for long-term placement in a longterm after that. Has been residing at the [facility], and family has been happy with this [...] diet as tolerated w/ texture/consistency modifications per TRUSS PULLER HELPER as indicated; will monitor PO intake as established and provide ONS if indicated Discharge Plan Admission Admit Date/Time: 10/30/22 21:21 Primary Reason for Your Visit: TIA/possible acute stroke. Attending Provider: Neymar Cunningham Primary Care Provider: Terrence Addison,Kam Consulting Providers: Hayden Daiz; Mu Grossman; Ajay Nieves; Dayron Workman; Lucio Brown; Alen Burgess; Melania Perez CEMENT RUBBER Discharge Orders/Prescriptions Prescriptions: New atorvastatin 40 mg [...] in before D/C Order can be placed): [facility] 11/02/22 1211 <Electronically signed by Neymar Cunningham MD> Cosigner Signature (if applicable): CC: CEMENT RUBBER-C Melania Perez; Dr. Hayden Diaz DO; Dr. Mu Grossman MD; Dr. Kam Ocampo Sr., DO; Dr. Ajay Nieves DO; Dr. Dayron Workman MD; Dr. Lucio Brown MD; Dr. Alen Burgess MD ~ [facility] Work Phone: Discharge summary Author Neymar Cunningham [facility] November 02, 2022 12:44pm Note Date/Time November 02, 2022 11:58am [facility] System Medical Records Department [address] [place] [address] Discharge Summary 11/02/22 1157 MR#: [id number] Acct: [id number] Name: KATHERINE JUDGE Rep #:[id number] : 1935 87 From: Neymar Herrera PCP: Dr. Kam Ocampo Sr., DO Status:A DM IN Location: ICU CVICU20 3-1 Providers Date of Admission: 10/30/22 Date of Discharge: 11/02/22 Primary Care Physician: Dr. Kam Ocampo Sr., DO Consultations 10/30/22 20:14 Consult: Events Associate / Pulmonary Medicine Routine Consulting Provider: [facility] Reason for Consult: stroke for thrombolytic administration [...] CAD, hypertension and depression who presented to [facility] ED from longterm on 10/30/2022 for expressive aphasia and dysarthria. [...] of ASD; bubble contrast study negative for lvafh-zt-gwok interatrial shunt. LA severely enlarged. EF 70%. [...] acute CVA. She was discharged to a shelter facility, with plans for long-term placement in a longterm after that. Has been residing at the [facility], and family has been happy with this [...] Workman; Lucio Brown; Alen Burgess; Melania Perez CEMENT RUBBER Instructions Additional Instructions / Restrictions: Fasting TSH [...] in before D/C Order can be placed): [facility] 11/02/22 1244 <Electronically signed by Neymar Cunningham MD> Cosigner Signature (if applicable): CC: Dr. Kam Ocampo Sr., DO; Dr. Neymar Cunningham MD~ Signed [facility] Work Phone: Evaluation note* Diagnosis Hypoxia- Primary Hypoxemia Coronary artery disease without angina pectoris, unspecified vessel or lesion type, unspecified whether [place] or transplanted heart Benign essential hypertension Essential hypertension, benign Pneumonia of right lung due to infectious organism, unspecified part of lung documented in this encounter [facility] Work Phone: Evaluation note* Diagnosis Hypoxia Hypoxemia Benign essential hypertension Essential hypertension, benign Pneumonia of right lung due to infectious organism, unspecified part of lung Abdominal pain, unspecified abdominal location documented in this encounter [facility] Work Phone: Evaluation note* Diagnosis Hypoxia Hypoxemia Pneumonia of right lower lobe due to infectious organism Abdominal pain, unspecified abdominal location documented in this encounter [facility] Work Phone: Evaluation note* Diagnosis Benign essential hypertension- Primary Essential hypertension, benign Osteoporosis, unspecified osteoporosis type, unspecified pathological fracture presence Coronary artery disease without angina pectoris, unspecified vessel or lesion type, unspecified whether [place] or transplanted heart Stage 3a chronic kidney disease (CMS/HCC) Hypercholesterolemia Pure hypercholesterolemia Allergic rhinitis, unspecified seasonality, unspecified trigger Multiple allergies Lower abdominal pain Abdominal pain, other specified site Anemia in other chronic diseases classified elsewhere documented in this encounter [facility] Work Phone: Evaluation note* Diagnosis 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 Abdominal pain, generalized Constipation, unspecified constipation type [facility] Diagnosis Onset Date Resolution Status Acute CVA (cerebrovascular accident) acute History of CAD (coronary artery disease) acute Hypertension chronic [facility] Work Phone: Evaluation note* Diagnosis Onset Date Resolution Status History of CAD (coronary artery disease) acute Acute CVA (cerebrovascular accident) resolved [facility] Work Phone: Evaluation noteNo assessment information available [facility] Work Phone: Evaluation note* Diagnosis Healthcare maintenance- Primary Osteoporosis, unspecified osteoporosis type, unspecified pathological fracture presence Screening for osteoporosis Special screening for osteoporosis Postmenopausal estrogen deficiency Benign essential hypertension Essential hypertension, benign Coronary artery disease without angina pectoris, unspecified vessel or lesion type, unspecified whether [place] or transplanted heart Gastroesophageal reflux disease, unspecified [...] health care facility documented in this encounter [facility] Work Phone: Evaluation note* Diagnosis Onset Date Resolution Status Admit Date Closed intertrochanteric fra cture of right hip acute July 25, 2024 4:51pm Elevated blood pressure reading acut e July 25, 2024 4:51pm Fall acute July 25 4:51pm [facility] Work Phone: Evaluation note* Diagnosis Onset Date Resolution Status Admit Date Altered mental status acute Jul 5:20pm Anemia acute August 02 5:20pm GI bleed acute August 02 5:20pm [facility] Work Phone: History of Present illness Narrative* [...] * SocHx: Denies smoking, alcohol, or illicits [facility] Work Phone: History of Present [...] * SocHx: Denies smoking, alcohol, or illicits [facility] Work Phone: History of Present illness Narrative* [...] ischemic colitis, other segmental colonic biopsies normal). 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 She denies any complaints of chest pain, shortness of breath, palpitations, lower extremity edema, di zziness or syncopal episodes. She reports elevated home BP readings. Today, her BP is 144/74. Her weight is up 5 lbs since December.[facility] Work Phone: History of Present illness Narrative* [...] kidney function check was 03/2021 (stable) * Hay Buckler: (last seen 03/2021), follow up in 6mo [...] and once in PM. No sedation. [facility] Work Phone: History of Present illness NarrativeMrs Nu is an 87 year old female with anemia, mitral regurg, rheumatic fever as a child, hypothyroidism, hypertension, hyperlipidemia, [place],m CAD, CABG and then an angioplasty after [...] to her right cheek, but denies any trauma.[facility] [address] [place] Work Phone: History of Present illness NarrativeMrs Judge is an 87 year old female with anemia, mitral regurg, rheumatic fever as a child, hypothyroidism, hypertension, hyperlipidemia, [place],m CAD, CABG and then an angioplasty after CABG, carotid artery disease, CVA, CKD, chronic colitis, osteoporosis, insomnia and peripheral neuropathy, here more acute visit for a syncopal event. She reports that she was admitted to the hospital for pneumonia with respiratory failure for 7 days. She is now under going rehab in [facility] and is now on continuous O2. She reports that after urinating, she had a syncopal episode. She is unsurewhat caused this syncopal episode. She denies any complaints of chest pain, lower extremity edema or weight gain. She does complain of shortness of breath and weight loss since her hospitalization. [facility] [address] [place] Work Phone: History of Present illness NarrativeMrs Judge is an 87 year old female with anemia, mitral regurg, rheumatic fever as a child, hypothyroidism, hypertension, hyperlipidemia, [place],m CAD, CABG and then an angioplasty after [...] to her right cheek, but denies any trauma.[facility] Work Phone: Reason for referral (narrative)* Consultation (Routine) - Authorized Specialty Diagnoses / Procedures Referred By Contac t Referred To Contact Primary Care Diagnoses Hypoxia Benign essential hypertension Procedures Follow Up In Advanced Primary Care - PCP Christ Gardiner, [address] [facility] [address] [place] [address] Referral ID Status Reason Start Date Expiration Date V isits Requested Visits Authorized [id number] Authorized 06/01/2022 11/28/2022 1 1 * Imaging (Routine) - Authorized Specialty Diagnoses / Procedures Referred By Contac t Referred To Contact Radiology Diagnoses Hypoxia Procedures XR chest 2 views Christ Gardiner DO [address] [facility] [address] [place] [address] Referral ID Status Reason Start Date Expiration Date Visits Requested Visits Authorized [id number] Authorized Perform Procedure 05/30/2022 11/26/2022 1 1 [facility] Work Phone: Reason for referral (narrative)* Consultation (Routine) - Authorized Specialty Diagnoses / Procedures Referred By Contac t Referred To Contact Primary Care Diagnoses Hypoxia Pneumonia of right lower lobe due to infectious organism Abdominal pain, unspecified abdominal location Procedures Follow Up In Advanced Primary Care - PCP Christ Gardiner DO [address] [facility] [address] [place] [address] Referral ID Status Reason Start Date Expiration Date V isits Requested Visits Authorized [id number] Authorized 06/10/2022 12/07/2022 1 1 [facility] Work Phone: Renrbt for referral (narrative)* Consultation (Routine) - Authorized Specialty Diagnoses / Procedures Referred By Contac t Referred To Contact Gastroenterology Diagnoses Lower abdominal pain Procedures DC OFFICE/OUTPATIENT NEW HIGH MDM 60-74 MINUTES Christ Gardiner DO [address] [facility], [facility] [address] [place] [address] Referral ID Status Reason Start Date Expiration Date Visits Requested Visits Authorized [id number] Authorized Specialty Services Required 10/07/2022 04/05/2023 1 1 * Consultation (Routine) - Authorized Specialty Diagnoses / Procedures Referred By Contac t Referred To Contact Allergy Diagnoses Multiple allergies Procedures DC OFFICE/OUTPATIENT NEW HIGH MDM 60-74 MINUTES Christ Gardiner DO [address] [facility], [facility] [address] [place] [address] Referral ID Status Reason Start Date Expiration Date Visits Requested Visits Authorized [id number] Authorized Specialty Services Required 10/07/2022 04/05/2023 1 1 [facility] Work Phone: Reason for referral (narrative)* Consultation (Routine) - Authorized Specialty Diagnoses / Procedures Referred By Contac t Referred To Contact Primary Care Diagnoses Osteoporosis, unspecified osteoporosis type, unspecified pathological fracture presence Benign essential hypertension Coronary artery disease without angina pectoris, unspecified vessel or lesion type, unspecified whether [place] or transplanted heart Stage 3a chronic kidney disease Hypercholesterolemia Procedures Follow Up In Advanced Primary Care - PCP Christ Gardiner DO [address] [facility], [facility] [address] [place] [address] Referral ID Status Reason Start Date Expiration Date V isits Requested Visits Authorized [id number] Authorized 04/15/2022 10/12/2022 1 1 * Consultation (Routine) - Authorized Specialty Diagnoses / Procedures Referred By Contac t Referred To Contact Primary Care Diagnoses Osteoporosis, unspecified osteoporosis type, unspecified pathological fracture presence Benign essential hypertension Coronary artery disease without angina pectoris, unspecified vessel or lesion type, unspecified whether [place] or transplanted heart Procedures Follow Up In Advanced Primary Care - PCP Christ Gardiner DO [address] [facility], [facility] [address] [place] [address] Referral ID Status Reason Start Date Expiration Date V isits Requested Visits Authorized [id number] Authorized 04/15/2022 10/12/2022 1 1 * Imaging (Routine) - Authorized Specialty Diagnoses / Procedures Referred By Naomi t Referred To Contact Radiology Diagnoses Screening for osteoporosis Postmenopausal estrogen deficiency Procedures XR DEXA bone density Christ Gardiner DO [address] [facility], [place] [place] [address] Referral ID Status Reason Start Date Expiration Date Visits Requested Visits Authorized [id number] Authorized Perform Procedure 04/15/2022 10/12/2022 1 1 [facility] Work Phone: Reason for referral (narrative)No reason for referral information availableWCleveland Clinic [facility] Work Phone: Summary Purpose Family History No [...] Details Family history of Coronary A rtery Disease(49) Status:Active Family history of Heart Surg bull Status:Active Unknown Family Member Name Dates Details Family history of Heart Dise ase(.49) Comments:Family History Status:Active Family history of Hypertensi on(49) Comments:Family History Status:Active Family history of Allergies Comments:Family History Status:Active Family history of Pulmonary Disease Comments:Family History Status:Active Family history of Breast Can cer(V16.3) Comments:Family History Status:Active Mother Name Dates Details Family history of Alzheimer Disease Status:Active Family history of Coronary A rtery Disease(49) Status:Active Family history of Diabetes M ellitus(V18.0) Status:Active Family history of Obesity Status:Active Family history of Arthritis( V17.7) Status:Active Father Name Dates Details Family history of Coronary A rtery Disease(49) Status:Active Family history of Heart Surg bull Status:Active Unknown Family Member Name Dates Details Heart Disease: Family Histor y(.49) Status:Active Hypertension: Family History (.49) Status:Active Allergies: [...] Mother(V1 8.0) Status:Active Coronary Artery Disease: Mot her(7.49) Status:Active Alzheimer Disease: Mother Status:Active Pulmonary Disease: Family Hi story Status:Active Allergies: Family History Status:Active Hypertension: Family History (V1749) Status:Active Heart Disease: Family Histor y(749) Status:Active [...] Mother(V1 8.0) Status:Active Coronary Artery Disease: Mot her(7.49) Status:Active Alzheimer Disease: Mother Status:Active Pulmonary Disease: Family Hi story Status:Active Allergies: Family History Status:Active Hypertension: Family History (V17.49) Status:Active Heart Disease: Family Histor y(749) Status:Active Unknown Family Member Name Dates Details Heart Disease: Family Histor y(7.49) Status:Active Hypertension: Family History (7.49) Status:Active Allergies: [...] Family Histor y(749) Status:Active Hypertension: Family History (V17.49) Status:Active Allergies: [...] FoundDocuments on File Type Date Recorded 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 Living Will 10/16/2021 Healthcare Power of Atty 01/05/2017 Latest Code Status on File Code Status Date Activated Date Inactivated Comments Full Code 10/10/2022 9:05 PM 10/16/2022 5:15 PM Advance Directive Response Recorded Date/ Time Living Will Yes October 30, 2022 9:18pm Power of Automotive Refinisher Yes October 9:18pm Name of Medical Power of Automotive Refinisher Ganga Nu October 30, 2022 9:18pm Advance Directive Response Recorded Date/ Time Name of Medical Power of Automotive Refinisher Ganga diggs October 30, 2022 10:55pm Living Will No October 30, 2022 10:55pm Power of Automotive Refinisher Yes October 10:55pm Advance Directive Response Recorded Date/ Time Name of Medical Power of Automotive Refinisher Ganga diggs October 30, 2022 10:55pm Name of Medical Power of Automotive Refinisher Ganga ORTA n November 06, 2022 4:26pm Living Will Yes November 06, 2022 4:26pm Power of Automotive Refinisher Yes October 4:26pm Advance Directive Response Recorded Date/ Time Name of Medical Power of Automotive Refinisher Ganga diggs October 30, 2022 9:55pm Name of Medical Power of Automotive Refinisher Ganga ORTA n November 06, 2022 3:26pm Living Will Yes November 06, 2022 3:26pm Power of Automotive Refinisher Yes October 3:26pm Advance Directive Response Recorded Date/ Time Name of Medical Power of Automotive Refinisher Ganga ORTA n November 06, 2022 3:26pm Living Will Yes November 06, 2022 3:26pm Power of Automotive Refinisher Yes October 3:26pm Advance Directive Response Recorded Date/ Time Living Will Yes November 06, 2022 4:26pm Power of Automotive Refinisher Yes October 4:26pm Documents on File Type Date Recorded 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 No July 25, 2024 2:44pm Advance Directive Response Recorded Date/ Time Do you have a Healthcare Power of Automotive Refinisher? No July 25, 2024 6:26pm Advance Directive Response Recorded Date/ Time Do you have a Healthcare Power of Automotive Refinisher? No August 02, 2024 1:06pm Advance Directive Response Recorded Date/ Time Do you have a Healthcare Power of Automotive Refinisher? No July 25, 2024 6:26pm Do you have a Healthcare Power of Automotive Refinisher? No August 02, 2024 1:06pm Hospital Course Note Send Summary:Discharge Summa ry Providers:Provider RoleProvider Name? ReferringManny Arana? ConsultingVentura Thacker? ConsultingManny Arana? PrimaryBaystate Medical CenterBenjy field? AttendingManny Arana Note Recipients: Manny Arana, Benjy Phan MD - [phone] [Preferred]Ventura Thacker MD Discharge: Summary:Admission Date: .02-Jul-2017 14:57:00Discharge Date: [id number] Physician at Discharge: Manny Arana PAdmission Reason: Abdominal pain(1)Final Discharge Diagnoses: Acute bowel obstruction, Cecal volvulus,Hypokalemia, Magnesium deficiency,Procedures: Date: 03-Jul-2017 00:48:00Procedure Name: US GUIDED PLACEMENT LEFT IJ TLC / ELAP / ANDREIA / RIGHT COLECTOMY/ STAPLED ILEOCOLONIC ANASTAMOSIS / BILATERAL TAP BLOCK Condition at Discharge: SatisfactoryDisposition at Discharge: DC/Xfer to Swing BedVital Signs: T [id number]/7595%Date/Time07/09 7: 7: 7: 7: 7:36Range(36.6C - 37.5C ) (82 - 91 ) (18 - 18 ) (more content not included)... Note Send Summary:Discharge Summa ry Providers:Provider RoleProvider Name? ReferringManny Arana? AttendingManny Arana Note Recipients: Manny Arana MDManohar, Anand Mukund, MD Discharge: Summary:Admission Date: .09-Jul-2017 08:05:00Discharge Date: 67-Mer-5421Ajsuzdqzs Physician at Discharge: Manny Arana PAdmission Reason: Cecal VolvulusFinal Discharge Diagnoses: Cecal volvulus, Clostridium difficile colitis,Procedures: Right hemicolectomyCondition at Discharge: SatisfactoryDisposition at Discharge: Senior Care FacilityVital Signs: T [id number]/6894%Date/Time07/17 6: 6: 6: 6: 6:23Range(36.4C - 36.7C [...] Providers:Provider RoleProvider Name? ReferringValerie Jiang? AttendingValerie Jiang? Manny Mcbride? Benjy Pruitt Note Recipients: Manny Arana MDManohar, Chenguttai Jayaram, MD - [phone] [Preferred]Valerie Jiang MD Discharge: Summary:Admission Date: .26-Jul-2017 13:45:00Discharge Date: 30-Kio-9939Xvvdkiuil Physician at Discharge: Edwin Jiang Reason: Encephalopathy; Hypercalcemia(1)Final Discharge Diagnoses: RADHA, Encephalopathy, HypercalcemiaProcedures: .Condition at Discharge: SatisfactoryDisposition at Discharge: Senior Care FacilityVital Signs: T [id number]/6498%Date/Time07/29 13: 13: 13: 13: 13:52Range(36.6C - 36.8C ) (64 - 80 ) (16 - 17 ) (131 - 154 )/ (64 - 73 ) (97%- 98% )Physical Exam:Constitutional: Cachetic, awake/alert/oriented x3, no distress, calm andcooperativeEyes: PERRL, EOMI, clear scleraENMT: mucous membranes dry, no apparent injury, (more content not included)... Note Send Summary:Discharge Summa ry Providers:Provider RoleProvider Name? ReferringAria Gandhi? AttendingAria Gandhi? ConsultingClif Eid A? ConsultingManny Arana P? PrimaryBenjy Garnett Note Recipients: Benjy Garnett MD - [phone] [Preferred] Discharge: Summary:Admission Date: .09-Oct-2017 12:52:00Discharge Date: 57-Bcg-5948Lmmnpubct Physician at Discharge: Kan Gandhi Reason: abd pain, diarrhea, weakness, not feeling well(1)Final Discharge Diagnoses: Acute encephalopathy, Clostridium difficile carrier,Clostridium difficile colitis, Diarrhea, Hypokalemia, Hypomagnesemia, Proteinmalnutrition unspecified (disorder),Procedures: NoneCondition at Discharge: SatisfactoryDisposition at Discharge: Senior Care FacilityVital Signs: T [id number]/8395%Date/Time10/13 14:009 14:009 14:009 14:009 14:00Range(36.8C - 37.4C ) [...] ILEOCOLONIC ANASTAMOSIS / BILATERAL TAP BLOCKSurgeon: GOELResident/Fellow/Other Mechanical Product Design Engineer: Nura Blood Loss (mL): 50Specimen: yesFindings: CECAL [...] Tapia Note Recipients: Benjy Garnett MD - [phone] [Preferred]Spencer Hardy MD Discharge: Summary:Admission Date: .26-Aug-2017 02:30:00Discharge Date: 89-Qeb-5495Kgeiepfpc Physician at Discharge: Jessenia Tapia ThereAdmission Reason: SBO(1)Final Discharge Diagnoses: Small bowel obstructionProcedures: noneCondition at Discharge: FairDisposition at Discharge: Senior Care FacilityVital Signs: T [id number]/7694%Date/Time09/01 4: 4: 4: 4: 4:36Range(36.5C - 37.7C [...] Magui Love? Benjy Pruitt Note Recipients: Magui Stuart MDManohar, Chenguttai Jayaram, MD - [phone] [Preferred] Discharge: Summary:Admission Date: .05-Sep-2017 06:05:00Discharge Date: 97-Ynl-2263Wpegzvboy Physician at Discharge: Ninidmission Reason: Acute encephalopathy(1)Final Discharge Diagnoses: Acute encephalopathy-resolvedProbable cause secondary to fallCortical brain contusion Severe protein calorie malnutritionProcedures: noneCondition at Discharge: satisfactoryDisposition at Discharge: Arnett VillageVital Signs: T [id number]/7094%Date/Time09/07 19: 19: 19: 19: 19:58Range(36.5C - 37C [...] ILEOCOLONIC ANASTAMOSIS / BILATERAL TAP BLOCKSurgeon: GOELResident/Fellow/Other Mechanical Product Design Engineer: Nura Blood Loss (mL): 50Specimen: yesFindings: CECAL [...] follow-up .KATHERINE NU is here for a follow-up for anemia, mood, sleep, weight, and HTN.MCW Reason for Referral Specialty Diagnoses / Procedures Referred By Naomi young Referred To Contact Radiology Diagnoses Pneumonia of right lower lobe due to infectious organism Procedures XR chest 2 views XR chest 2 views Christ Gardiner DO [address] [facility] [address] [address] Referral ID Status Reason Start Date Expiration Date Visits Requested Visits Authorized [id number] Authorized Perform Procedure 06/19/2022 12/16/2022 1 1 [...] 2024 4:51 pm Chief Complaint Admit Date USP LAB WORK April 14, 2024 5: 00am ANEMIA, GI BLEED August 02, 2024 5:20 pm Reason for Visit Admit Date Altered mental status August 02, 2024 5: 20pm Anemia August 02, 2024 5:20 pm GI bleed August 02, 2024 5:20 pm Chief Complaint Admit Date USP LAB WORK April 14, 2024 5: 00am FALL WITH HIP FRACTURE July 25, 2024 [...] HIP FRACTURE July 28, 2024 7 :53am ANEMIA, GI BLEED August 02, 2024 5:20 pm ANEMIA, GI BLEED August 03, 2024 12:1 1pm ANEMIA, GI BLEED August 03, 2024 3:37 pm ANEMIA, GI BLEED August 04, 2024 4:11 pm ANEMIA, GI BLEED August 04, 2024 4:36 pm ANEMIA, GI BLEED August 05, 2024 10:4 9am Reason for Visit Admit Date Closed intertrochanteric fracture of rig ht hip July 25, 2024 4:51pm Elevated blood pressure reading July 4:51pm Fall July 25, 2024 4:51 pm 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) July 25, 2024 4:51pm Altered mental status August 02, 2024 5: 20pm Anemia August 02, 2024 5:20 pm GI bleed August 02, 2024 5:20 pm Chief Complaint Admit Date FALL WITH HIP FRACTURE July 25, 2024 4 :51pm fall July 25, 2024 5:06 pm FALL WITH HIP FRACTURE July 26, 2024 1 0:18am FALL WITH HIP FRACTURE July 26, 2024 6 :18pm FALL WITH HIP FRACTURE July 27, 2024 1 :26pm FALL WITH HIP FRACTURE July 27, 2024 5 :46pm FALL WITH HIP FRACTURE Sophie 19th, 2025 7 :08am FALL WITH HIP FRACTURE July 28, 2024 7 :53am LAB WORK August 02, 2024 5:00 am ANEMIA, GI BLEED August 02, 2024 5:20 pm ANEMIA, GI BLEED August 03, 2024 12:1 1pm ANEMIA, GI BLEED August 03, 2024 3:37 pm AM EKG August 04, 2024 6:01 am ANEMIA, GI BLEED August 04, 2024 4:11 pm ANEMIA, GI BLEED August 04, 2024 4:36 pm ANEMIA, GI BLEED August 05, 2024 10:4 9am RIGHT HIP August 17, 2024 8:49a m Room 2 August 17, 2024 9:47a m Reason for Visit Admit Date Closed intertrochanteric fracture of rig ht hip July 25, 2024 4:51pm Elevated blood pressure reading July 4:51pm Fall July 25, 2024 4:51 pm 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) July 25, 2024 4:51pm GI bleed August 02, 2024 5:20 pm Altered mental status August 02, 2024 5: 20pm Anemia August 02, 2024 5:20 pm Additional Source Comments INFORMATION SOURCE (unrecogn ized section and content) DATE CREATED AUTHOR 01/17/2018 [facility] DATE CREATED AUTHOR AUTHOR'S ORGANIZ ATION 01/21/2018 [facility] DATE CREATED AUTHOR AUTHOR'S ORGANIZ ATION 01/30/2018 [facility] DATE CREATED AUTHOR AUTHOR'S ORGANIZ ATION 12/21/2020 [facility] DATE CREATED AUTHOR AUTHOR'S ORGANIZ ATION 06/02/2022 [facility] DATE CREATED AUTHOR AUTHOR'S ORGANIZ ATION 06/14/2022 [facility] DATE CREATED AUTHOR AUTHOR'S ORGANIZ ATION 07/21/2022 [facility] DATE CREATED AUTHOR AUTHOR'S ORGANIZ ATION 09/13/2022 [facility] DATE CREATED AUTHOR AUTHOR'S ORGANIZ ATION 10/08/2022 [facility] DATE CREATED AUTHOR AUTHOR'S ORGANIZ ATION 10/16/2022 [facility] DATE CREATED AUTHOR AUTHOR'S ORGANIZ ATION 10/28/2022 [facility] DATE CREATED AUTHOR AUTHOR'S ORGANIZ ATION 08/04/2024 [facility] DATE CREATED AUTHOR AUTHOR'S ORGANIZ ATION 08/30/20[facility] Reason for Visit (unrecogniz ed section and content) Reason Comments Follow-up Bone density results -discuss meds Reason Comments Follow-up 1 week fuv HYPOXIA Specialty Diagnoses / Procedures Referred By Naomi young Referred To Contact Primary Care Diagnoses Hypoxia Benign essential hypertension Procedures Follow Up In [facility] - PCP Christ Gardiner DO [address] [facility], [address] [place] [address] Referral ID Status Reason Start Date Expiration Date V isits Requested Visits Authorized [id number] Authorized 06/01/2022 11/28/2022 1 1 Reason Comments Follow-up Lungs Specialty Diagnoses / Procedures Referred By Naomi young Referred To Contact Primary Care Diagnoses Hypoxia Pneumonia of right lower lobe due to infectious organism Abdominal pain, unspecified abdominal location Procedures Follow Up In [facility] - PCP Christ Gardiner DO [address] [facility], [address] [place] [address] Referral ID Status Reason Start Date Expiration Date V isits Requested Visits Authorized [id number] Authorized 06/10/2022 12/07/2022 1 1 Reason Comments Follow-up Pt presents for 6 mo nth follow up- pt states that her allergies have been bothering her. Specialty Diagnoses / Procedures Referred By Naomi young Referred To Contact Primary Care Diagnoses Osteoporosis, unspecified osteoporosis type, unspecified pathological fracture presence Benign essential hypertension Coronary artery disease without angina pectoris, unspecified vessel or lesion type, unspecified whether [place] or transplanted heart Procedures Follow Up In [facility] - PCP Christ Gardiner DO [address] [facility] [address] [place] [address] Referral ID Status Reason Start Date Expiration Date V isits Requested Visits Authorized [id number] Authorized 04/15/2022 10/12/2022 1 1 Reason Comments [...] constipation type Procedures . Akil Lucio MD [address] [place] [address] [facility] 2[address] Telemetry [address] [place] [address] Referral ID Status Reason Start Date Expiration Date Visits Re quested Visits Authorized [id number] 1 1 Care Teams (unrecognized sec tion [...] July 28, 2024 Dr. Hayden Diaz , Other Provider Active Start: July 25, 2024 End: July 28, 2024 Dr. Thanh Mclaughlin , Other Provider Active St art: July 25, 2024 End: July 28, 2024 Dr. Neymar Cunningham MD Attending Provider Active Start: July 25, 2024 End: July 28, 2024 Team Status: Active Member Role Status Dates Dr. Jacobo Moya DO Emergency Provider Active Start: July 25, 2024 Dr. Kam Ocampo Sr. , DO Primary Care Provider Active Start: July 25, 2024 Dr. Thanh Mclaughlin , Attending Provider Active Start: July 25, 2024 [...] , DO Emergency Provider Active Start: July 26, 2024 Dr. Kam Ocampo Sr. , DO Primary Care Provider Active Start: July 26, 2024 Dr. Hayden Diaz , DO Admit Provider Active Start: July 26, 2024 Dr. Hayden Diaz , DO Other Provider Active Start: July 26, 2024 Dr. Thanh Mclaughlin , DO Attending Provider Active Start: July 26, [...] Moya DO Emergency Provider Active Start: July 28, [...] Moya , Emergency Provider Active Start: July 28, 2024 [...] MD Attending Provider, Referring Pro vider Active Daytime Caregiver Relationship Specialty Start Date End Date Christ Gardiner DO [address] [facility] [place] [address] PCP - General 05/19/06 Apple Aguilar, PROGRAM SUPERVISOR-GRINDER SET UP OPERATOR THREAD TOOL [address] [place] [address] PCP - MSSP ACO Attributed Provider 08/09/21 Daytime Caregiver Relationship Specialty Start Date End Date Christ Gardiner DO [address] [facility] [place] [address] PCP - General 05/19/06 Apple Aguilar, PROGRAM SUPERVISOR-GRINDER SET UP OPERATOR THREAD TOOL [address] [place] [address] PCP - MSSP ACO Attributed Provider 08/09/21 Daytime Caregiver Relationship Specialty Start Date End Date Christ Gardiner DO [address] [facility] [place] [address] PCP - General 05/19/06 Apple Aguilar, PROGRAM SUPERVISOR-GRINDER SET UP OPERATOR THREAD TOOL [address] [place] [address] PCP - MSSP ACO Attributed Provider 08/09/21 Daytime Caregiver Relationship Specialty Start Date End Date Christ Gardiner DO [address] [facility] [place] [address] PCP - General 05/19/06 Christ Gardiner DO [address] [facility] [place] [address] PCP - MSSP ACO Attributed Provider 05/10/22 Daytime Caregiver Relationship Specialty Start Date End Date Rashad AgostoSaida [address] [facility] [address] [place] [address] PCP - General Bending Shed Worker 10/10/22 Team Status: Active Member Role Status [...] Burgess MD Other Provider Active Melania Perez CEMENT RUBBER, CEMENT RUBBER-C Other Provider Active Team Status: Inactive Member [...] Burgess MD Other Provider Active Melania Perez CEMENT RUBBER, CEMENT RUBBER-C Other Provider Active Team Status: Active Member [...] Provider Active Dr. Yandel Matute , DO Attending Provider, Emergency Provider Active Team Status: Inactive Member Role Status Dates Dr. Kam Ocampo Sr. , DO Primary Care Provider Active Dr. Gino Blas MD Attending Provider, Referrin g Provider Active Daytime Caregiver Relationship Specialty Start Date End Date Christ Gardiner, [address] [facility] [place] [address] PCP - General 05/19/06 Apple Aguilar, PROGRAM SUPERVISOR-GRINDER SET UP OPERATOR THREAD TOOL [address] [facility] [address] [place] [address] PCP - MSSP ACO Attributed Provider 08/09/21 [...] 14, 2024 End: April 14, 2024 Kam FUCHS MD Attending Provider Active S tart: April 14, 2024 End: April 14, 2024 Team Status: Active Member Role Status Dates Dr. Kam Ocampo Sr. , DO Primary Care Provider Active Start: August 01, 2024 Kam FUCHS MD Attending Provider Active S tart: August 01, 2024 Team Status: Active Member Role Status Dates Dr. Kam Ocampo Sr. , DO Primary Care Provider Active Start: August 02, 2024 Kam FUCHS MD Attending Provider Active S tart: August 02, 2024 Team Status: Active Member Role Status Dates Dr. Kam Ocampo Sr. , DO Primary Care Provider Active Start: August 02, 2024 Dr. Jamie Beltrán , Emergency Provider Active Start: August 02, 2024 Dr. Janine Harrison MD Admit Provider Active Star t: August 02, 2024 Dr. Janine Harrison MD Attending Provider Active Start: August 02, 2024 Dr. Janine Harrison MD Referring Provider Active Start: August 02, 2024 Team Status: Active Member Role/Relationship Status Dates Dr. Kam Ocampo Sr. , DO Primary Care Provider Active Team Status: Inactive Member Role/Relationship Status Dates Dr. Kam Ocampo Sr. , DO Primary Care Provider Active Start: April 14, 2024 End: April 14, 2024 Kam FUCHS MD Attending Provider Active S tart: April 14, 2024 End: April 14, 2024 Team Status: Inactive Member Role/Relationship Status Dates Dr. Jacobo Moya DO Emergency Provider Active Start: July 25, 2024 End: July 28, 2024 Dr. Kam Ocampo Sr. , DO Primary Care Provider Active Start: July 25, 2024 End: July 28, 2024 Dr. Hayden Diaz DO Admit Provider Active Start: July 25, 2024 End: July 28, 2024 Dr. Hayden Diaz , Other Provider Active Start: July 25, 2024 End: July 28, 2024 Dr. Thanh Mclaughlin DO Other Provider Active St art: July 25, 2024 End: July 28, 2024 Dr. Neymar Cunningham MD Attending Provider Active Start: July 25, 2024 End: July 28, 2024 Team Status: Active Member Role/Relationship Status Dates Dr. Jacobo Moya DO Emergency Provider Active Start: July 25, 2024 Dr. Kam Ocampo Sr. , DO Primary Care Provider Active Start: July 25, 2024 Dr. Thanh Mclaughlin DO Attending Provider Active Start: July 25, 2024 Team Status: Active Member Role/Relationship Status Dates Dr. Kam Ocampo Sr. , DO Primary Care Provider Active Start: July 26, 2024 Dr. Kaden Corcoran MD Attending Provider Active S tart: July 26, 2024 Team Status: Active Member Role/Relationship Status Dates Dr. Jacobo Moya DO Emergency Provider Active Start: July 26, 2024 Dr. Kam Ocampo Sr. , DO Primary Care Provider Active Start: July 26, 2024 Dr. Hayden Diaz , Admit Provider Active Start: July 26, 2024 Dr. Hayden Diaz , DO Other Provider Active Start: July 26, 2024 Dr. Thanh Mclaughlin , DO Other Provider Active St art: July 26, 2024 Dr. Neymar Cunningham MD Attending Provider Active Start: July 26, 2024 Dr. Neymar Cunningham MD Other Provider Active Sta rt: July 26, 2024 Team Status: Active Member Role/Relationship Status Dates Dr. Jacobo Moya , DO Emergency Provider Active Start: July 26, 2024 Dr. Kam Ocampo Sr. , DO Primary Care Provider Active Start: July 26, 2024 Dr. Hayden Diaz , DO Admit Provider Active Start: July 26, 2024 Dr. Hayden Diaz , DO Other Provider Active Start: July 26, 2024 Dr. Thanh Mclaughlin , DO Attending Provider Active Start: July 26, 2024 Dr. Thanh Mclaughlin , DO Other Provider Active St art: July 26, 2024 Dr. Neymar Cunningham MD Other Provider Active Sta rt: July 26, 2024 Team Status: Active Member Role/Relationship Status Dates Dr. Jacobo Moya , DO [...] July 27, 2024 Team Status: Active Member Role/Relationship Status Dates Dr. Jacobo Moya , DO [...] July 27, 2024 Team Status: Active Member Role/Relationship Status Dates Dr. Jacobo Moya , DO [...] July 28, 2024 Team Status: Active Member Role/Relationship Status Dates Dr. Jacobo Moya , DO [...] July 28, 2024 Team Status: Active Member Role/Relationship Status Dates Dr. Kam Ocampo Sr. , DO Primary Care Provider Active Start: August 01, 2024 Kam FUCHS MD Attending Provider Active S tart: August 01, 2024 Team Status: Active Member Role/Relationship Status Dates Dr. Kam Ocampo Sr. , DO Primary Care Provider Active Start: August 02, 2024 Kam FUCHS MD Attending Provider Active S tart: August 02, 2024 Team Status: Inactive Member Role/Relationship Status Dates Dr. Kam Ocampo Sr. , DO Primary Care Provider Active Start: August 02, 2024 End: August 05, 2024 Dr. Jamie Beltrán , DO Emergency Provider Active Start: August 02, 2024 End: August 05, 2024 Dr. Janine Harrison MD Admit Provider Active Star t: August 02, 2024 End: August 05, 2024 Dr. Janine Harrison MD Referring Provider Active Start: August 02, 2024 End: August 05, 2024 Dr. Janine Harrison MD Other Provider Active Star t: August 02, 2024 End: August 05, 2024 Dr. Neymar Cunningham MD Attending Provider Active Start: August 02, 2024 End: August 05, 2024 Dr. Hayden Diaz , DO Other Provider Active Start: August 02, 2024 End: August 05, 2024 Team Status: Active Member Role/Relationship Status Dates Dr. Kam Ocampo Sr. , DO Primary Care Provider Active Start: August 03, 2024 Dr. Jamie Beltrán DO Emergency Provider Active Start: August 03, 2024 Dr. Janine Harrison MD Admit Provider Active Star t: August 03, 2024 Dr. Janine Harrison MD Referring Provider Active Start: August 03, 2024 Dr. Janine Harrison MD Other Provider Active Star t: August 03, 2024 Dr. Hayden Diaz DO Attending Provider Active Start: August 03, 2024 Dr. Hayden Diaz , DO Other Provider Active Start: August 03, 2024 Team Status: Active Member Role/Relationship Status Dates Dr. Kam Ocampo Sr. , DO Primary Care Provider Active Start: August 03, 2024 Dr. Jamie Beltrán DO Emergency Provider Active Start: August 03, 2024 Dr. Janine Harrison MD Admit Provider Active Star t: August 03, 2024 Dr. Janine Harrison MD Referring Provider Active Start: August 03, 2024 Dr. Janine Harrison MD Other Provider Active Star t: August 03, 2024 Dr. Hayden Diaz , DO Other Provider Active Start: August 03, 2024 Dr. Nomi Kee DO Attending Provider Active Start: August 03, 2024 Team Status: Active Member Role/Relationship Status Dates Dr. Kam Ocampo Sr. , DO Primary Care Provider Active Start: August 04, 2024 Dr. Jamie Beltrán , Emergency Provider Active Start: August 04, 2024 Dr. Janine Harrison MD Admit Provider Active Star t: August 04, 2024 Dr. Janine Harrison MD Referring Provider Active Start: August 04, 2024 Dr. Janine Harrison MD Other Provider Active Star t: August 04, 2024 Dr. Neymar Cunningham MD Other Provider Active Sta rt: August 04, 2024 Dr. Hayden Diaz , DO Other Provider Active Start: August 04, 2024 Dr. Nomi Kee , Attending Provider Active Start: August 04, 2024 Team Status: Active Member Role/Relationship Status Dates Dr. Kam Ocampo Sr. , DO Primary Care Provider Active Start: August 04, 2024 Dr. Jamie Beltrán , Emergency Provider Active Start: August 04, 2024 Dr. Janine Harrison MD Admit Provider Active Star t: August 04, 2024 Dr. Janine Harrison MD Referring Provider Active Start: August 04, 2024 Dr. Janine Harrison MD Other Provider Active Star t: August 04, 2024 Dr. Neymar Cunningham MD Attending Provider Active Start: August 04, 2024 Dr. Neymar Cunningham MD Other Provider Active Sta rt: August 04, 2024 Dr. Hayden Diaz , Other Provider Active Start: August 04, 2024 Team Status: Active Member Role/Relationship Status Dates Dr. Kam Ocampo Sr. , DO Primary Care Provider Active Start: August 05, 2024 Dr. Jamie Beltrán , DO Emergency Provider Active Start: August 05, 2024 Dr. Janine Harrison MD Admit Provider Active Star t: August 05, 2024 Dr. Janine Harrison MD Referring Provider Active Start: August 05, 2024 Dr. Janine Harrison MD Other Provider Active Star t: August 05, 2024 Dr. Neymar Cunningham MD Attending Provider Active Start: August 05, 2024 Dr. Neymar Cunningham MD Other Provider Active Sta rt: August 05, 2024 Dr. Hayden Diaz DO Other Provider Active Start: August 05, 2024 Team Status: Inactive Member Role/Relationship Status Dates Dr. Jacobo Moya , DO [...] July 28, 2024 Team Status: Active Member Role/Relationship Status Dates Dr. Jacobo Moya DO Emergency Provider Active Start: July 25, 2024 Dr. Kam Ocampo Sr. , DO Primary Care Provider Active Start: July 25, 2024 Dr. Thanh Mclaughlin DO Attending Provider Active Start: July 25, 2024 Dr. Neymar Cunningham MD Referring Provider Active Start: July 25, 2024 Team Status: Active Member Role/Relationship Status Dates Dr. Kam Ocampo Sr. , DO Primary Care Provider Active Start: July 26, 2024 Dr. Kaden Corcoran MD Attending Provider Active S tart: July 26, 2024 Team Status: Active Member Role/Relationship Status Dates Dr. Jacobo Moya DO Emergency Provider Active Start: July 26, 2024 Dr. Kam Ocampo Sr. , DO Primary Care Provider Active Start: July 26, 2024 Dr. Hayden Diaz , DO Admit Provider Active Start: July 26, 2024 Dr. Hayden Diaz DO Other Provider Active Start: July 26, 2024 Dr. Thanh Mclaughlin DO Other Provider Active St art: July 26, 2024 Dr. Neymar Cunningham MD Attending Provider Active Start: July 26, 2024 Dr. Neymar Cunningham MD Other Provider Active Sta rt: July 26, 2024 Team Status: Active Member Role/Relationship Status Dates Dr. Jacobo Moya DO Emergency [...] July 26, 2024 Dr. Neymar Cunningham MD Referring Provider Active Start: July 26, 2024 Dr. Neymar Cunningham MD Other Provider Active Sta rt: July 26, 2024 Team Status: Active Member Role/Relationship Status Dates Dr. Jacobo Moya DO Emergency Provider Active Start: July 27, 2024 Dr. Kam Ocampo Sr. , DO Primary Care Provider Active Start: July 27, 2024 Dr. Hayden Diaz , DO Admit Provider Active Start: July 27, 2024 Dr. Hayden Diaz , DO Other Provider Active Start: July 27, 2024 Dr. Thanh Mclaughlin , Attending Provider Active Start: July 27, 2024 Dr. Thanh Mclaughlin , DO Other Provider Active St art: July 27, 2024 Dr. Neymar Cunningham MD Other Provider Active Sta rt: July 27, 2024 Team Status: Active Member Role/Relationship Status Dates Dr. Jacobo Moya DO Emergency [...] July 27, 2024 Team Status: Active Member Role/Relationship Status Dates Dr. Jacobo Moya DO Emergency Provider Active Start: July 28, 2024 Dr. Kam Ocampo Sr. , DO Primary Care Provider Active Start: July 28, 2024 Dr. Hayden Diaz DO Admit Provider Active Start: July 28, 2024 Dr. Hayden Diaz , DO Other Provider Active Start: July 28, 2024 Dr. Thanh Mclaughlin DO Attending Provider Active Start: July 28, 2024 Dr. Thanh Mclaughlin , DO Other Provider Active St art: July 28, 2024 Dr. Neymar Cunningham MD Other Provider Active Sta rt: July 28, 2024 Team Status: Active Member Role/Relationship Status Dates Dr. Jacobo Moya DO Emergency Provider Active Start: July 28, [...] July 28, 2024 Team Status: Active Member Role/Relationship Status Dates Dr. Kam Ocampo Sr. , DO Primary Care Provider Active Start: August 01, 2024 Kam FUCHS MD Attending Provider Active S tart: August 01, 2024 Team Status: Active Member Role/Relationship Status Dates Dr. Kam Ocampo Sr. , DO Primary Care Provider Active Start: August 02, 2024 Kam FUCHS MD Attending Provider Active S tart: August 02, 2024 Team Status: Inactive Member Role/Relationship Status Dates Dr. Kam Ocampo Sr. , DO Primary Care Provider Active Start: August 02, 2024 End: August 05, 2024 Dr. Jamie Beltrán , DO Emergency Provider Active Start: August 02, 2024 End: August 05, 2024 Dr. Janine Harrison MD Admit Provider Active Star t: August 02, 2024 End: August 05, 2024 Dr. Janine Harrison MD Referring Provider Active Start: August 02, 2024 End: August 05, 2024 Dr. Janine Harrison MD Other Provider Active Star t: August 02, 2024 End: August 05, 2024 Dr. Neymar Cunningham MD Attending Provider Active Start: August 02, 2024 End: August 05, 2024 Dr. Hayden Diaz , DO Other Provider Active Start: August 02, 2024 End: August 05, 2024 Team Status: Active Member Role/Relationship Status Dates Dr. Kam Ocampo Sr. , DO Primary Care Provider Active Start: August 03, 2024 Dr. Jamie Beltrán , DO Emergency Provider Active Start: August 03, 2024 Dr. Janine Harrison MD Admit Provider Active Star t: August 03, 2024 Dr. Janine Harrison MD Referring Provider Active Start: August 03, 2024 Dr. Janine Harrison MD Other Provider Active Star t: August 03, 2024 Dr. Hayden Diaz , Attending Provider Active Start: August 03, 2024 Dr. Hayden Diaz , DO Other Provider Active Start: August 03, 2024 Team Status: Active Member Role/Relationship Status Dates Dr. Kam Ocampo Sr. , DO Primary Care Provider Active Start: August 03, 2024 Dr. Jamie Beltrán , Emergency Provider Active Start: August 03, 2024 Dr. Janine Harrison MD Admit Provider Active Star t: August 03, 2024 Dr. Janine Harrison MD Referring Provider Active Start: August 03, 2024 Dr. Janine Harrison MD Other Provider Active Star t: August 03, 2024 Dr. Hayden Diaz , Other Provider Active Start: August 03, 2024 Dr. Nomi Kee , Attending Provider Active Start: August 03, 2024 Team Status: Active Member Role/Relationship Status Dates Dr. Kam Ocampo Sr. , DO Primary Care Provider Active Start: August 04, 2024 End: August 04, 2024 Dr. Colten Palacios MD Attending Provider Active Start: August 04, 2024 End: August 04, 2024 Dr. Hayden Diaz , Referring Provider Active Start: August 04, 2024 End: August 04, 2024 Team Status: Active Member Role/Relationship Status Dates Dr. Kam Ocampo Sr. , DO Primary Care Provider Active Start: August 17, 2024 Dr. Kam Ocampo Sr. , DO Referring Provider Active Start: August 17, 2024 Dr. Thanh Mclaughlin , Attending Provider Active Start: August 17, 2024 Team Status: Inactive Member Role/Relationship Status Dates Dr. Kam Ocampo Sr. , DO Primary Care Provider Active Start: August 17, 2024 End: August 17, 2024 Dr. Kaden Corcoran MD Attending Provider Active S tart: August 17, 2024 End: August 17, 2024 Team Status: Inactive Member Role/Relationship Status Dates Dr. Kam Ocampo Sr. , DO Primary Care Provider Active Start: August 17, 2024 End: August 17, 2024 Dr. Kam Oacmpo Sr. , DO Referring Provider Active Start: August 17, 2024 End: August 17, 2024 Dr. Thanh Mclaughlin DO Attending Provider Active Start: August 17, 2024 End: August 17, 2024 Scheduled Active and Recently Administ ered [...] at 0915 0923 (Given - Provider: Colette Sanders, CINTHYA)2100 (Given - Provider: Rena Luna, CINTHYA) 0825 (Given - Provider: Shannon Orantes RN)2052 (Given - Provider: Autumn Kelly RN) 0900 (Given - Provider: Sophia Moreira, RN) buPROPion [...] 0859 (Given - Provider: Sophia Moreira, CINTHYA) clopidogrel (Plavix) tablet 75 mg 75 mg, [...] 921 (Given - Provider: Colette Sanders RN) 08 [...] 921 (Given - Provider: Colette Sanders RN) 08 [...] 0915 0922 (Given - Provider: Colette Sanders, CINTHYA)2044 (Given - Provider: Rena Luna, CINTHYA) 08 (Given - Provider: Shannon Orantes, RN)2050 (Given - Provider: Autumn Kelly, CINTHYA) 0859 (Given - Provider: Sophia Moreira, RN) mirtazapine (Remeron) tablet 30 mg 30 mg, Oral, Nightly, First dose on 10/11/22 at 2099 2044 (Given - Provider: Rena Luna, CINTHYA) 2049 (Given - Provider: Autumn Kelly, CINTHYA) montelukast (Singulair) tablet 10 mg 10 mg, Oral, Nightly, First dose on 10/11/22 at 2099 2044 (Given - Provider: Rena Luna, CINTHYA) 2050 (Given - Provider: Autumn Kelly, CINTHYA) potassium chloride CR (Klor-Con M20) ER tablet [...] mg from all sources in 24 hours. 0921 (See Alternative - Provider: Colette Sanders RN) 0830 (See Alternative - Provider: Shannon Orantes RN)2049 (See Alternative - Provider: Autumn Kelly RN) 0859 (See Alternative - Provider: Sophia Moreira [...] specifically ordered. 1937 (Given - Provider: Rena Luna RN) 021 [...] BE BASED ON THE PRIMARY CLINICAL RECORDS. [employer] provides no warranty or guarantee of the accuracy or completeness of information in this document.
[2024-09-13 08:38] LABS: Hematocrit 35.2 % (37-47); Hemoglobin 11.4 g/dL (12.0-15.0); Mean Corp Hgb Conc 32.4 g/dL (32-36); Mean Corpuscular Volume 102.6 fL (81-99); Mean Platelet Vol. 9.2 fl (6.2-12.0); Platelet Count 213 K/mm3 (150-450); RBC Distribution Width CV 14.9 % (11.6-14.6); RBC Distribution Width SD 56.9 fl (35.1-43.9); Red Blood Count 3.43 M/mm3 (4.2-5.4); White Blood Count 5.9 K/mm3 (4.4-11.0)
[2024-09-13 08:59] LABS: Anion Gap 10 (5-15); BUN 13 mg/dL (4-19); BUN/Creat Ratio 14.8 RATIO (10-20); Calcium,Total 9.7 mg/dL (7.6-11.0); Carbon Dioxide 26.8 mmol/L (21.0-32.0); Chloride 102 mmol/L (98-108); Glucose 88 mg/dL (70-99); Potassium 4.3 mmol/L (3.3-5.1)
== END ==
LOC: OLS.ACH 05:00
PROVIDERS: PCP Internal Medicine; Visit Provider Internal Medicine
DX: I50.32 Chronic diastolic (congestive) heart failure (principal); D50.0 Iron deficiency anemia secondary to blood loss (chronic)
CPT/HCPCS: 36415; 80048; 85027

== ENCOUNTER → 2024-10-25 04:00 | Outpatient (REF) | payer MEDICARE, OTHER, MEDICAID, SELFPAY ==
[2024-10-25 08:14] LABS: Hematocrit 31.0 % (37-47); Hemoglobin 10.2 g/dL (12.0-15.0); Mean Corp Hgb Conc 32.9 g/dL (32-36); Mean Corpuscular Volume 102.3 fL (81-99); Mean Platelet Vol. 9.5 fl (6.2-12.0); Platelet Count 212 K/mm3 (150-450); RBC Distribution Width CV 14.1 % (11.6-14.6); RBC Distribution Width SD 52.8 fl (35.1-43.9); Red Blood Count 3.03 M/mm3 (4.2-5.4); White Blood Count 4.9 K/mm3 (4.4-11.0)
[2024-10-25 08:30] LABS: AST(SGOT) 19 U/L (<=31); Alanine Aminotransfer ALT/SGPT 11 U/L (<=34); Albumin, Serum 3.0 g/dL (3.4-4.8); Alkaline Phosphatase 86 U/L (35-104); Anion Gap 9 (5-15); BUN 20 mg/dL (4-19); BUN/Creat Ratio 23.0 RATIO (10-20); Calcium,Total 9.7 mg/dL (7.6-11.0); Carbon Dioxide 28.4 mmol/L (21.0-32.0); Chloride 107 mmol/L (98-108); Globulin 2.7 g/dL (2.2-4.2); Glucose 82 mg/dL (70-99); Potassium 4.2 mmol/L (3.3-5.1)
== END ==
LOC: OLS.ACH 04:00
PROVIDERS: PCP Internal Medicine; Referring Provider Internal Medicine; Visit Provider Internal Medicine
DX: Z91.81 History of falling (principal)
CPT/HCPCS: 36415; 80053; 85027

== ENCOUNTER → 2024-12-05 04:00 | Outpatient (REF) | payer MEDICARE, OTHER, MEDICAID, SELFPAY ==
[2024-12-05 09:08] LABS: Hematocrit 33.0 % (37-47); Hemoglobin 10.7 g/dL (12.0-15.0); Mean Corp Hgb Conc 32.4 g/dL (32-36); Mean Corpuscular Volume 100.6 fL (81-99); Mean Platelet Vol. 9.2 fl (6.2-12.0); Platelet Count 189 K/mm3 (150-450); RBC Distribution Width CV 13.7 % (11.6-14.6); RBC Distribution Width SD 50.5 fl (35.1-43.9); Red Blood Count 3.28 M/mm3 (4.2-5.4); White Blood Count 4.5 K/mm3 (4.4-11.0)
[2024-12-05 09:17] LABS: AST(SGOT) 23 U/L (<=31); Alanine Aminotransfer ALT/SGPT 13 U/L (<=34); Albumin, Serum 2.9 g/dL (3.4-4.8); Alkaline Phosphatase 107 U/L (35-104); Anion Gap 8 (5-15); BUN 13 mg/dL (4-19); BUN/Creat Ratio 15.1 RATIO (10-20); Calcium,Total 9.4 mg/dL (7.6-11.0); Carbon Dioxide 30.0 mmol/L (21.0-32.0); Chloride 105 mmol/L (98-108); Globulin 3.2 g/dL (2.2-4.2); Glucose 78 mg/dL (70-99); Potassium 3.9 mmol/L (3.3-5.1)
== END ==
LOC: OLS.ACH 04:00
PROVIDERS: PCP Internal Medicine; Referring Provider Internal Medicine; Visit Provider Internal Medicine
DX: D50.0 Iron deficiency anemia secondary to blood loss (chronic) (principal); I13.0 Hypertensive heart and chronic kidney disease with heart failure and stage 1 through stage 4 chronic kidney disease, or unspecified chronic kidney disease
CPT/HCPCS: 36415; 80053; 85027

== ENCOUNTER 2024-12-05 22:16 | Inpatient (IN) | payer MEDICARE, OTHER, MEDICAID, SELFPAY ==
[2024-12-05 22:19] VITALS: BP 185/78; PULSE 89; RESP 24; TEMP 36.9; O2SAT 97; O2SAT 98; BMI 21.4
--- NOTE | 2024-12-05 22:29 | ED.RN ---
2216: PROVIDER Stephen BERGER NOTIFIED OF PT. SYMPTOMS AND ARRIVAL TO THE ED.
[2024-12-05 22:30] VITALS: BMI 21.4
--- NOTE | 2024-12-05 22:40 | CT_ITS ---
PROCEDURE: CTA HEAD AND NECK W/ CONTRAST 12/05/2024 REASON FOR EXAM: TIA TECHNIQUE: Procedure Code: [id number].HDNCK Modality: CT Procedure: CTA HEAD AND NECK W/ CONTRAST Multiplanar Sagittal and Coronal images were obtained. CONTRAST: Isovue 370 VOLUME: 100 mL One or more dose reduction techniques were used (e.g., Automated exposure control, adjustment of the mA and/or kV according to patient size, use of iterative reconstruction technique). RADIATION DOSE SUMMARY: CTDlvol: 11.12 mGy DLP: 366 mGycm COMPARISON: CT scan of the head on 12/05/2024. FINDINGS: CTA HEAD. Normal bilateral petrous carotid arteries. Calcified atheromatous plaques with mild multifocal stenosis of the right cavernous carotid artery with a normal supraclinoid bifurcation. Calcified atheromatous plaques with mild multifocal stenosis of the left cavernous carotid artery with a normal supraclinoid bifurcation. Normal right A1 segments of the anterior cerebral artery. Normal left A1 segments of the anterior cerebral artery. Normal intact anterior communicating artery (ACOM). Normal bilateral A2 segments of the anterior cerebral arteries. Normal right M1 and M2 segments of the middle cerebral arteries, with a normal M1 bifurcation. Normal left M1 and M2 segments of the middle cerebral arteries, with a normal M1 bifurcation. Normal right posterior communicating artery (PCOM). Normal left posterior communicating artery (PCOM). Normal bilateral vertebral arteries. Normal basilar artery with a normal basilar bifurcation. The visualized bilateral superior cerebellar (SCA) arteries are normal. Normal bilateral P1, P2 and visualized P3 segments of the posterior cerebral arteries. There is no demonstrated aneurysm of the [place]. There is no major vessel occlusion or hemodynamically significant stenosis. There is no demonstrated abnormality of the visualized brain. CTA NECK. RIGHT CAROTID ARTERIES: Normal right common carotid artery (CCA). 20% stenosis of the right common carotid bulb. 20% stenosis of the origin of the right internal carotid (ICA) artery without a hemodynamically significant stenosis. Normal visualized cervical portion of the right internal carotid artery. Normal origin of the right external carotid artery (ECA). LEFT CAROTID ARTERIES: Normal left common carotid artery (CCA). 40% stenosis of the left common carotid bulb. 40% stenosis of the origin of the left internal carotid (ICA) artery without a hemodynamically significant stenosis. Normal visualized cervical portion of the left internal carotid artery. Normal origin of the left external carotid artery (ECA). VERTEBRAL ARTERIES: Normal bilateral vertebral artery without a hemodynamically significant stenosis. CT/CTA Head AND Neck W/ Contrast IMPRESSION: Atherosclerosis without high-grade stenosis. Reading [facility]
--- NOTE | 2024-12-05 22:40 | CT_ITS ---
PROCEDURE: BRAIN/HEAD WITHOUT CONTRAST 12/06/2024 REASON FOR EXAM: FALL TECHNIQUE: Procedure Code: CTBR Modality: CT Procedure: BRAIN/HEAD WITHOUT CONTRAST Coronal and Sagittal reconstruction series were provided. One or more dose reduction techniques were used (e.g., Automated exposure control, adjustment of the mA and/or kV according to patient size, use of iterative reconstruction technique. RADIATION DOSE SUMMARY: CTDI Vol 44.99 mGy DLP :846.73 mGycm COMPARISON: none FINDINGS: Accentuated bilateral cerebral periventricular deep white matter hypodensities denoting hypoperfusion with bilateral cerebral periventricular and subcortical as well as basal ganglia hypodense foci and patches. Turner-white matter differentiation is maintained. Normal CT appearance of the posterior fossa structures. No intracerebral or extra axial hemorrhage. Dilated ventricular system, cortical sulci and extra-axial CSF spaces. No definite calvarial fractures. No midline shifts or deformity. The osseous structures in the skull base are unremarkable. Paranasal sinuses show minimal sinusitis. Vascular atheromatous calcifications. CT/Brain/Head without Contrast IMPRESSION: No acute cerebrovascular abnormalities. If clinical symptoms persist, further e valuation with MRI may be considered as clinically warranted. No intra or extra-axial acute hemorrhage. 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 Reading Location[facility]
[2024-12-05] MEDS: 0.9% Normal Saline (500mL Bag) 500 ML 999 ML IV (22:53)
[2024-12-05 22:54] LABS: Hematocrit 35.3 % (37-47); Hemoglobin 11.5 g/dL (12.0-15.0); Immature Granulocytes Count 0.010 X10^3/uL (0.0-0.0); Mean Corp Hgb Conc 32.6 g/dL (32-36); Mean Corpuscular Volume 99.4 fL (81-99); Mean Platelet Vol. 9.0 fl (6.2-12.0); NRBC Flagged by Analyzer 0 % (0-5); Platelet Count 217 K/mm3 (150-450); RBC Distribution Width CV 13.4 % (11.6-14.6); RBC Distribution Width SD 49.0 fl (35.1-43.9); Red Blood Count 3.55 M/mm3 (4.2-5.4); White Blood Count 5.6 K/mm3 (4.4-11.0)
--- OUTSIDE RECORDS SUMMARY | 2024-12-05 22:54 | XMS RPT_ITS | CCD ---
Author Organization [facility] Care Team Providers Care Quick Mixer Operator Name Role Phone Tavon-Babar, Vincenta Unavailable Unavailable [...] Unavailable Hugo, Chenguttai Jayaram Unavailable Unav ailable Hguo, Chenguttai Jayaram Unavailable Unav ailable EDWIN, FINESSE [...] Unavailable Unavailable ROSLYN EID Unavailable Unavailable Hugo, Chenguttai J Unavailable Unavailroro e Christ Gardiner Unavailable Unavailable Christ Gardiner Unavailable Unavailabl e Hugo, Chenguttai J Unavailable Unavailabl e Senthil, Crystal L Unavailable Unavailable Costa Nieto J Unavailable Unavailable Christ Gardiner Unavailable Unavailable Christ Gardiner Unavailable [phone] Unavailable Unavailable Christ Gardiner DO Primary Care Provider Jeff POLICYHOLDER INFORMATION CLERK-DATA STORAGE SPECIALIST, Apple Unavailable CHRIST GARDINER Primary Care Unavailroro e Jeff, MsLeigh Chiu Attending Unavailable Rashad Agosto, Dr. Christ Barron Primary Care [facility] Rashad Agosto, Dr. Christ Barron Attending [facility] Rashad Agosto, Dr. Christ Barron Primary Care [facility] JEFF, GILBERT CHIU Attending Unavailable Rashad Agosto, Dr. Christ Barron Primary Care [facility] Rashad Agosto, Dr. Christ Barron Primary Care [facility] Rashad Agosto, Dr. Christ Barron Attending [facility] Rashad Agosto, Dr. Christ Barron Primary Care [facility] Rashad Agosto, Dr. Christ Barron Attending [facility] Rashad Agosto, Dr. Christ Barron Attending U navailable Van Nostran, Dr. Christ Barron Referring U navailable Van Nostran, Dr. Christ Barron Primary Care U navailable JEFF, DATA STORAGE SPECIALIST APPLE Attending Unavailable Van Nostran, Dr. Christ Barron Primary Care U navailable Van Nostran, Dr. Christ Barron Primary Care U navailable JEFF, DATA STORAGE SPECIALIST [place] Attending Unavailable Van Nostran DO, Christ Bray Unavailable VAN NOSTRAN, CHRIST E Attending Unavailabl [...] Alen Burgess Other Provider Unavailab nacho Perez LICENSED SALES PRODUCER, LICENSED SALES PRODUCER-C Melania Other Provider Dr. Neymar Cunningham Referring Provider Dr. Juanita Jiang Referring Provider Dr. Amalia Donahue Emergency Provider Dr. Kam Ocampo Sr. Primary Care Provider Dr. Hayden Diaz Admit Provider Dr. Hayden Diaz Other Provider Dr. Neymar Cunningham Referring Provider Octavio, Dr. Blackmon Other Provider Dr. Ajay Nieves Attending Provider Dr. Juanita Jiang Attending Provider Dr. Juanita Jiang Referring Provider Dr. Neymar Cunningham Attending Provider Dr. Mu Grossman Other Provider Dr. Ajay Nieves Other Provider Dr. Dayron Workman Other Provider Unavailable Dr. Lucio Brown Other Provider Dr. Alen Burgess Other Provider Unavailab nacho Preez LICENSED SALES PRODUCER, LICENSED SALES PRODUCER-C Melania Other Provider Terrence Addison DO, Dr. Humphrey Primary Care Provider Kam Ocampo MD Attending Provider Unavailable Dr. Jacobo Moya DO Emergency Provider eTrrence Addison DO, Dr. Humphrey Primary Care Provider Dr. Hayden Diaz DO Admit Provider Dr. Hayden Diaz DO Attending Provider Dr. Thanh Mclaughlin DO Attending Provider Dr. Hayden Diaz DO Other Provider Arnoldo LAU, Dr. Law Other Provider Octavio HUGHES, Dr. Blackmon Attending Provider iNlo HUGHES, Dr. Alfonso Attending Provider Octavio HUGHES, Dr. Blackmon Other Provider Deperro Sr. DO, Dr. Humphrey Primary Care Provider Terrence HUGHES, Kam Attending Provider Unavailable Dr. Jamie Beltrán DO Emergency Provider Hunter HUGHES, Dr. Mehta [...] Diaz Consulting Unavailable Janine Harrison Attending Unavailable Friend, Nomi Attending Unavailable Deperro OLS, Kam Attending Unavailable [...] Referring Unavailable Deperro OLS, Kam Attending Unavailable Huntre HUGHES, Dr. Mehta Other Provider Dr. Hayden Diaz DO Attending Provider Chilango LAU, Dr. Mosher Attending Provider Octavio HUGHES, Dr. Blackmon Referring Provider Terrence HUGHES, Kam Attending Provider Unavailable Philip HUGHES, Dr. Abel Attending Provider Joe LAU, Dr. Blake Referring Provider Terrence Addison DO, Dr. Humphrey Referring Provider [phone] [facility] , Dr. Centeno Emergency Department Physi lory Terrence Addison DO, Dr. Humphrey Primary Care Physician Joe LAU, Dr. Blake Admitting Physician Joe LAU, Dr. Blake Nurse Practitioner Arnoldo LAU, Dr. Law Nurse Practitioner Dr. Neymar Cunningham MD Attending Physician Arnoldo LAU, Dr. Law Attending Physician Nilo HUGHES, Dr. Alfonso Attending Physician Octavio HUGHES, Dr. Blackmon Nurse Practitioner Terrence HUGHES, Kam Attending Physician Unavailable BeltránDr. Jamie capellan DO Emergency Department Physic graeme Hunter HUGHES, Dr. Mehta Admitting Physician Hunter HUGHES, Dr. Mehta Nurse Practitioner Joe LAU, Dr. Blake Attending Physician Chilango LAU, Dr. Mosher Attending Physician Philip HUGHES, Dr. Abel Attending Physician Terrence HUGHES, Kam Primary Care Physician Unavaila ruthie Ocampo MD, Kam Referring Provider Unavailable Terrence FUCHS, Kam Primary Care Unavailable Terrence FUCHS, Kam Attending Unavailable Hayden Diaz Admitting Unavailable Terrence Addison, Kam Primary Care Unavailable Neymar Cunningham Attending Unavailable Borruso, Thanh Consulting Unavailable Mosteller, Hayden Consulting Unavailable Deperro OLS, Kam Primary Care Unavailable Deperro OLS, Kam Referring Unavailable Deperro OLS, Kam Attending Unavailable Deperro OLS, Kam Attending Unavailable Deperro Sr., Kam Primary Care Unavailable Deperro OLS, Kam Attending Unavailable Deperro Sr., Kam Primary Care Unavailable Harrison, Janine Admitting Unavailable Harrison, Janine Referring Unavailable Octavio, Neymar Attending Unavailable Harrison, Janine Consulting Unavailable Deperro Sr., Kam Primary Care Unavailable Mosteller, Hayden Consulting Unavailable Deperro OLS, Kam Attending Unavailable Deperro Sr., Kam Primary Care Unavailable Deperro OLS, Kam Attending Unavailable Deperro Sr., Kam Primary Care Unavailable Harrison, Janine Admitting Unavailable Harrison, Janine Referring Unavailable Harrison, Janine Attending Unavailable Harrison, Janine Consulting Unavailable Deperro Sr., Kam Primary Care Unavailable Deperro Sr., Kam Primary Care Unavailable Nilo, Kaden Attending Unavailable Deperro Sr., Kam Primary Care Unavailable Deperro Sr., Kam Referring Unavailable Borruso, Thanh Attending Unavailable Mosteller, Hayden Referring Unavailable Deperro Sr., Kam Primary Care Unavailable Colten Palacios Attending Unavailable Deperro Sr., Kam Primary Care Unavailable Nilo, Elba Attending Unavailable Deperro Sr., Kam Primary Care Unavailable Mosteller, Hayden Admitting Unavailable Borruso, Thanh Consulting Unavailable Borruso, Thanh Attending Unavailable Octavio, Neymar Referring Unavailable Mosteller, Hayden Consulting Unavailable Octavio, Neymar Consulting Unavailable Octavio, Neymar Attending Unavailable Mostpati Hayden Attending Unavailable Mosteller, Hayden Consulting Unavailable Chilango, Nomi Attending Unavailable Deperro Sr., Kam Primary Care Unavailable Deperro OLS, Kam Attending Unavailable Deperro OLS, Kam Primary Care Unavailable Deperro OLS, Kam Referring Unavailable Deperro OLS, Kam Attending Unavailable Deperro OLS, Kam Attending Unavailable Deperro Sr., Kam Primary Care Unavailable Deperro OLS, Kam Attending Unavailable Deperro Sr., Kam Primary Care Unavailable Deperro OLS, Kam Attending Unavailable Deperro Sr., Kam Primary Care Unavailable Octavio, Neymar Attending Unavailable Octavio, Neymar Consulting Unavailable Mosteller, Hayden Attending Unavailable Deperro Sr., Kam Primary Care Unavailable Borruso, Thanh Attending Unavailable Neymar Cunningham Referring Unavailable Allergies Allergy Classification Reported Allergen(s) Allergy Type Date of Onset Reaction(s) Facility Aspirin (4 sources) Aspirin; Translations: [Aspirin TABS] Drug Allergy [facility] Work Phone: Benzodiazepines (8 sources) LORazepam; Translations: [Ativan TABS] Drug Allergy [facility] Work Phone: Cephalosporins (antibiotic) (4 sources) Cephalexin; Translations: [Keflex TABS] Drug Allergy [facility] Work Phone: Eszopiclone (4 sources) Eszopiclone; Translations: [Lunesta] Drug Allergy [facility] Work Phone: Fish (4 sources) fish, unspecified Food Allergy [facility] Work Phone: Lincomycin (4 sources) Lincomycin; Translations: [Lincocin SOLN] Drug Allergy [facility] Work Phone: Lincosamides (antibiotic) (4 sources) Clindamycin; Translations: [Clindamycin] Drug Allergy [facility] Work Phone: Macrolides (antibiotic) (4 sources) Clarithromycin; Translations: [Biaxin TABS] Drug Allergy [facility] Work Phone: Mold Extract (4 sources) Mold Extract Drug Allergy [facility] Work Phone: NSAIDs (4 sources) NSAIDs; Translations: [NSAIDs] Drug Allergy [facility] Work Phone: Penicillins (antibiotic) (4 sources) Penicillins; Translations: [Penicillins] Drug Allergy [facility] Work Phone: Pollen (4 sources) bee pollen Substance Allergy [facility] Work Phone: rofecoxib (4 sources) rofecoxib; Translations: [Vioxx TABS] Drug Allergy [facility] Work Phone: Serotonin Reuptake Inhibitors (SSRIs) (4 sources) traZODone; Translations: [trazodone] Drug Allergy [facility] Work Phone: Tetracyclines (antibiotic) (4 sources) Tetracyclines; Translations: [Tetracyclines] Drug Allergy [facility] Work Phone: (20 sources) Aspirin; Translations: [Aspirin TABS] Drug Allergy 03-02-19 23 Unknown [facility] (20 sources) bee pollen allergy to substance [facility] Work Phone: (20 sources) Cephalexin; Translations: [Keflex TABS] Drug Allergy 02-16-19 10 Unknown, Hives [facility] Work Phone: (20 sources) Clarithromycin; Translations: [Biaxin TABS] Drug Allergy 03-02-19 23 Unknown [facility] Work Phone: (20 sources) Clindamycin; Translations: [Clindamycin] Drug Allergy 10-14-19 21 Unknown [facility] Work Phone: (20 sources) fish, unspecified allergy to substance [facility] Work Phone: (20 sources) Lincomycin; Translations: [Lincocin SOLN] Drug Allergy 05-26-19 10 Unknown, Nausea And Vomiting, Rash [facility] Work Phone: (20 sources) LORazepam; Translations: [Ativan TABS] Drug Allergy 03-02-19 23 Unknown [facility] Work Phone: (20 sources) NSAIDs; Translations: [NSAIDs] drug allergy [facility] Work Phone: (20 sources) Penicillins; Translations: [Penicillins] drug allergy 03-02-19 [facility] (20 sources) rofecoxib; Translations: [Vioxx TABS] Drug Allergy 03-02-19 Unknown [facility] Work Phone: (20 sources) Tetracyclines; Translations: [Tetracyclines] drug allergy 03-02-19 [facility] (1 source) drug allergy [facility] Work Phone: (1 source) drug allergy [facility] Work Phone: (20 sources) Erythromycin Derivatives; Translations: [Erythromycin Derivatives] drug allergy [facility] Work Phone: (1 source) allergy to substance [facility] Work Phone: (1 source) allergy to substance [facility] Work Phone: (1 source) drug allergy [facility] Work Phone: (1 source) drug allergy [facility] Work Phone: (1 source) drug allergy [facility] Work Phone: (1 source) allergy to substance [facility] Work Phone: (1 source) allergy to substance [facility] Work Phone: (1 source) drug allergy [facility] Work Phone: (20 sources) Eszopiclone; Translations: [Lunesta] Drug Allergy [facility] Work Phone: (20 sources) Mold Extract; Translations: [MOLD] Drug Allergy 03-02-19 Unknown [facility] Work Phone: (20 sources) Temazepam; Translations: [Restoril] Drug Allergy [facility] Work Phone: (20 sources) traZODone; Translations: [trazodone] Drug Allergy 03-02-19 Unknown [facility] Work Phone: (20 sources) Other; Translations: [OTHER] allergy to substance 03-02-19 Unknown [facility] Work Phone: (20 sources) Doxazosin; Translations: [Cardura] Drug Allergy 03-02-19 Unknown [facility] Work Phone: (7 sources) Bee pollen; Translations: [BEE POLLEN] Drug Allergy 03-02-19 Unknown [facility] Work Phone: (20 sources) Erythromycin; Translations: [ERYTHROMYCIN BASE] Drug Allergy 03-02-19 [facility] Work Phone: (20 sources) Eszopiclone; Translations: [ESZOPICLONE] Drug Allergy 03-02-19 [facility] Work Phone: (7 sources) Non-steroidal anti-inflammatory agent; Translations: [NSAIDS (NON-STEROIDAL ANTI-INFLAMMATORY DRUG)] Drug Allergy 03-02-19 Unknown [facility] Work Phone: (5 sources) Penicillins Drug Allergy 03-02-19 [facility] Work Phone: (6 sources) Salicylic Acid; Translations: [SALICYLATES] Drug Allergy 02-16-19 10 GI bleeding [facility] Work Phone: (20 sources) Temazepam; Translations: [TEMAZEPAM] Drug Allergy 03-02-19 Unknown [facility] Work Phone: (5 sources) Tetracycline (class of antibiotic) Drug Allergy 03-02-19 [facility] Work Phone: (2 sources) Aspirin; Translations: [ASPIRIN] Drug Allergy 03-02-19 [facility] (4 sources) Cephalexin; Translations: [CEPHALEXIN] Drug Allergy 03-02-19 [facility] (5 sources) Clarithromycin; Translations: [CLARITHROMYCIN] Drug Allergy 10-14-19 [facility] (5 sources) Doxazosin; Translations: [DOXAZOSIN] Drug Allergy 03-02-19 23 Unknown [facility] (4 sources) Lincomycin; Translations: [LINCOMYCIN] Drug Allergy 03-02-19 [facility] (5 sources) LORazepam; Translations: [LORAZEPAM] Drug Allergy 10-14-19 [facility] (5 sources) rofecoxib; Translations: [ROFECOXIB] Drug Allergy 02-16-19 10 Unknown [facility] (4 sources) Fish; Translations: [FISH CONTAINING PRODUCTS] Drug Intolerance 10-14-19 Anaphylaxis [facility] (1 source) Eszopiclone Drug Allergy 10-14-19 Unknown [facility] (1 source) Fish - dietary Propensity to adverse reactions 10-14-19 Anaphylaxis [facility] (1 source) Non-steroidal anti-inflammatory agent Drug Allergy 10-14-19 [facility] (1 source) Penicillins Drug Allergy 02-16-19 10 [facility] (1 source) Salicylic Acid Drug Allergy 02-16-19 10 GI bleeding, Unknown [facility] (1 source) Temazepam Allergy to substance 03-02-19 [facility] (1 source) Tetracycline (class of antibiotic) Drug Allergy 02-16-19 10 [facility] (19 sources) Fish derivative; Translations: [fish derived] Allergy to substance 10-31-19 NEEDS FOLLOW-UP, PT UNSURE OF REACTION [facility] (17 sources) Nonsteroidal Anti-inflammatory Compounds Allergy to substance 10-31-19 NEEDS FOLLOW-UP, PT UNSURE OF REACTION [facility] (17 sources) Penicillins Allergy to substance 10-31-19 NEEDS FOLLOW-UP, PT UNSURE OF REACTION [facility] (17 sources) Salicylic Acid Drug Allergy 10-31-19 NEEDS FOLLOW-UP, PT UNSURE OF REACTION [facility] (17 sources) Tetracyclines Allergy to substance 10-31-19 NEEDS FOLLOW-UP, PT UNSURE OF REACTION [facility] (17 sources) Fish Containing Products Allergy to substance 10-31-19 NEEDS FOLLOW-UP, PT UNSURE OF REACTION [facility] (7 sources) cultivated mushroom extract Drug Allergy 07-26-19 25 PT UNSURE OF REACTION, Food Allergy [facility] (2 sources) Clindamycin Drug Allergy 08-03-19 [facility] (2 sources) Erythromycin Drug Allergy 08-03-19 [facility] (2 sources) Eszopiclone Drug Allergy 08-03-19 [facility] (2 sources) Mushroom (edible) Drug allergy (disorder) 08-03-19 [facility] (2 sources) NSAIDs Drug allergy (disorder) 08-03-19 [facility] (2 sources) Penicillins Drug allergy (disorder) 08-03-19 [facility] (2 sources) Salicylic Acid Drug Allergy 08-03-19 [facility] (2 sources) Temazepam Drug Allergy 08-03-19 [facility] (2 sources) Tetracyclines Drug allergy (disorder) 08-03-19 [facility] (2 sources) Fish Containing Products Drug allergy (disorder) 08-03-19 [facility] Repository Medications Current Medications Medication Drug Class(es) [...] mouth every hour as needed for pain Start: 07-25-2024 End: 07-28-2024 take 1 [...] / ipratropium bromide 0.167 mg/ml inhalation solution (12 sources) Anticholinergic, beta2-Adrenergic Agonist Start: 08-02-2024 take 1 mL by inhalation twice daily Start: 07-25-2024 End: 08-17-2024 Ipratropium-Albuterol 0.5 mg -3 mg(2.5 mg base)/3 mL solution for nebulization Discontinued mL July 25, 2024 12:00am August 17, 2024 9:15am . Start: 10-10-2022 End: 10-16-2022 ipratropium-albuterol (Duo-N eb) 0.5-2.5 mg/3 mL nebulizer solution 3 mL apixaban 5 mg oral tablet (5 sources) Factor Xa Inhibitor Start: 07-28-2024 take 2.5 mg by mouth twice daily bisacodyl 10 mg rectal suppository (7 sources) Stimulant Laxative Start: 08-17-2024 Start: 10-27-2022 Bisacodyl 10 M G Rectal Suppository Quantity: 0 Refills: 0 Ordered: 27-Oct-2022 DO Start : 27-Oct-2022 Active Start: 10-11-2022 End: 10-12-2022 bisacodyl (Dulcolax) supposi tory 10 mg budesonide 0.25 mg/ml inhalation suspension (11 sources) Corticosteroid Start: 08-02-2024 take 0.5 mg by inhal ation twice daily Start: 07-25-2024 End: 08-05-2024 Budesonide 0.5 mg/2 mL suspe nsion for nebulization Discontinued mg July 25, 2024 12:00am August 05, 2024 11:38am copy writer calcium carbonate 1250 mg or al tablet (20 sources) Start: 08-17-2024 Start: 07-28-2024 take 1 tablet by dunia th three times daily at mealtime Start: 10-27-2022 End: 08-05-2024 Calcium Carbonate 500 [...] sources) Histamine-1 Receptor Antagonist Start: 025 End: 025 take 1 tablet by mouth once daily Start: 10-30-2022 End: 08-02-2024 Cetirizine (All Day Allergy (Cetirizine)) 10 mg capsule Discontinued 5 mg PO DAILY October 30, 2022 12:00am August 02, 2024 4:22pm Start: 10-30-2022 take 1 capsule by mo [facility] once daily Cetirizine (All Day Allergy (Cetirizine)) [...] Ordered: 08-Mar-2021 DO Active cholecalciferol 0.125 mg ora l tablet (10 sources) Vitamin D Start: 08-02-2024 [facility] Start: 07-28-2024 End: 08-05-2024 take 1 capsule by mouth once daily Cholecalciferol (Vitamin D3) 125 mcg (5,000 unit) capsule Discontinued 125 ug PO DAILY 0 0 July 28, 2024 12:00am August 05, 2024 11:38am dicyclomine hydrochloride 10 mg oral capsule (20 sources) Anticholinergic Start: 07-25-2024 take 1 capsule by mouth three times daily Start: 10-30-2022 End: 08-05-2024 take 1 capsule [...] 14-Nov-2019 Active take 1 capsule by mo [facility] four times daily Dicyclomine HCl - 10 MG Oral Capsule TAKE 1 CAPSULE 4 TIMES DAILY Quantity: 90 Refills: 3 Ordered: 18-Oct-2021 Christ Gardiner DO Active Emollient cream (3 sources) Start: 08-17-2024 Start: 08-17-2024 Emollient crea m Active [facility] TOPICAL August 17, 2024 12:00am ferrous sulfate 325 mg oral tablet (20 sources) Start: 07-28-2024 End: 08-05-2024 take 1 tablet by mouth once daily Start: 05-30-2016 End: 10-07-2022 take 1 tablet [...] Corticosteroid Start: 10-30-2022 take 50 ug nasal rou te once daily Start: 10-30-2022 take 1 spray(s) nasa l [...] Suspension USE DIRECTED. Quantity: 1 Refills: 3 Van Christ Agosto DO Start : 17-Dec-2010 Active 15.8 ML Bottle Food Supplemt, Lactose-Reduc ed (Boost Breeze Nutritional) 0.04-1.05 gram-kcal/mL liquid (3 sources) Start: 08-17-2024 Start: 08-17-2024 Food Supplemt, Lactose-Reduced (Boost Breeze Nutritional) 0.04-1.05 gram-kcal/mL liquid Active 0 PO EVERY MORNING August 17, 2024 12:00am 4oz orally every morning; Food Supplemt, Lactose-Reduc ed (Ensure) liquid (15 sources) Start: 10-30-2022 take 1 mL by mouth o nce daily Start: 10-30-2022 take 1 mL by mouth [...] Diuretic Start: 08-05-2024 take 2 tablets by [facility] in the morning Start: 07-28-2024 End: 08-05-2024 take 1 tablet [...] . Start: 01-12-2017 take 2 tablets by [facility] once daily, then take 1 tablet by mouth once daily Furosemide 20 MG Oral Tablet Take 1 tablet daily Quantity: 30 Refills: 2 Ordered: 21-May-2021 Christ Gardiner DO Start : 12-Jan-2017 Active (take 2 potassium on days you are taking full strength 20 mg furosemide, take 1 on 10 mg days) Start: 01-12-2017 take 2 tablets by mo [facility] every other day, then take 1 tablet [...] : 12-Jan-2017 Active guaiFENesin 20 mg/ml oral so lution (18 sources) Start: 08-17-2024 take 200 mg by mouth every four hours as needed Start: 10-30-2022 End: 08-02-2024 take 200 mg by mouth every eight hours Guaifenesin (Chest Congestion Relief) 100 mg/5 mL liquid Discontinued 200 mg PO EVERY 8 HOURS October 30, 2022 12:00am August 02, 2024 4:42pm inulin 2000 mg chewable tabl et (15 sources) Start: 10-30-2022 take 1 tablet by dunia th once daily Start: 10-30-2022 take 1 tablet by dunia [...] Harrison Probiotic) 30 billion cell capsule,delayed release(DR/EC) (15 sources) Start: 10-30-2022 Start: 10-30-2022 Lactobac No.30 -Bifidobact No.4 (Ultimate [...] 12:00am loperamide hydrochloride 2 mg oral capsule (3 sources) Opioid Agonist Start: 08-17-2024 take 1 capsule by mouth every six hours as needed menthol 0.05 mg/mg topical gel (3 sources) Start: 08-17-2024 Multivitamin (Daily Multi-Vitamin) tablet (15 sources) Start: 10-30-2022 Start: 10-30-2022 Multivitamin ( Daily Multi-Vitamin) tablet [...] tablet (20 sources) Proton Pump Inhibitor Start: 3 End: 5 take 1 tablet by mouth once daily take 1 tablet by mouth twice artur ly Pantoprazole Sodium 40 MG Oral Tablet Delayed Release Take 1 tablet twice daily Quantity: 180 Refills: 3 Ordered: 11-Mar-2022 Rashad Agosto DO Christ Active take 1 tablet by dunia th once daily before breakfast pantoprazole (ProtoNix) 40 MG EC tablet Take 40 mg by mouth every morning (before breakfast). Do not crush, chew, or split. 0 Active microencapsulated potassium chloride 20 meq extended release oral tablet (20 sources) Start: 07-25-2024 take 1 tablet by dunia th once daily Start: 10-30-2022 End: 08-05-2024 take 1 tablet [...] Start: 10-07-2017 take 1 capsule by mo moh once daily Potassium Chloride ER 10 MEQ [...] spasm Quantity: 180 Refills: 0 Ordered: 20-Feb-2021 Pasquale Shira Active Completed/Discontinued Medications Medication Drug Class(es) Dates [...] Active ascorbic acid 500 mg oral capsule (10 sources) Vitamin C Start: 08-02-2024 End: 08-05-2024 take 1 capsule by mouth twice daily Ascorbic Acid (Vitamin C) 500 mg capsule Discontinued 500 mg PO TWICE A DAY August 02, 2024 12:00am August 05, 2024 11:37am Start: 07-28-2024 take 1 tablet by mouth twice d aily atorvastatin 40 mg oral tablet (20 sources) [...] mg / inulin 2000 mg chewable tablet (5 sources) Start: 08-02-2024 End: 08-05-2024 take 2-100 [...] week. TAKE 1 TABLET BY MOUTH EVERY [id number] 09/01/2012 Active Start: 09-01-2012 take 1 [...] Active docusate sodium 50 mg / sennosides, chcf 8.6 mg oral tablet (18 sources) Start: 08-02-2024 End: 08-05-2024 Sennosides-Docusate Sodium (Senexon-S) 8.6-50 mg tablet Discontinued 1 {tbl} PO DAILY August 02, 2024 12:00am August 05, 2024 11:42am constipation Start: 07-28-2024 Start: 07-25-2024 End: 07-28-2024 Sennosides-Docusate Sodium ( [...] 24 hours scheduled (Daily), First dose on [facility] 10/11/22 at 0900 Indication of Use: Prophylaxis-DVT/PE [...] 1 tablet by dunia th twice daily Start: 10-11-2022 End: 10-16-2022 take 600 mg by mouth twice daily 600 mg, Oral, 2 times daily, First dose on [facility] 10/11/22 at 0915 Start: 05-22-2022 take 2 [...] BEDTIME. Quantity: 30 Refills: 6 Ordered: 22-Nov-2020 Rashad Agosto Christ LAU Start : 22-Nov-2020 Active if no side [...] (Daily-Carmelo (With Folic Acid)) 400 mcg tablet (6 sources) Start: 07-25-2024 End: 08-05-2024 Multivitamin With [...] Active Start: 10-22-2017 take 1 capsule by [facility] once daily Omeprazole 20 MG Oral Capsule [...] Start : 12-Jan-2017 Active polyethylene glycol 3350 21730 mg powder for oral solution (14 sources) Osmotic Laxative Start: 07-28-2024 End: 08-05-2024 [...] TWICE DAILY. Quantity: 14 Refills: 0 Christ Gardnier DO Start : 10-Dec-2018 Active therapeutic multivitamin-minerals [...] disease; Translations: [Chronic kidney disease, stage 3a ([facility])] Onset: 3 Complications of surgical procedures or [...] disease (20 sources) Atherosclerotic heart disease of [place] coronary artery without angina pectoris; Translations: [Old [...] Onset: 3 Chronic Deficiency and other anemia (1 source) Iron deficiency anemia secondary to blood loss (chronic); Translations: [Iron deficiency anemia secondary to blood loss (chronic)] Onset: 5 Chronic Deficiency and other anemia (20 sources) [...] bleed] Onset: 8 Chronic E Codes: Fall (12 sources) Fall; Translations: [Unspecified fall, initial encounter] [...] Episodic Fracture of neck of femur (hip) (17 sources) Closed intertrochanteric fracture; Translations: [Displaced intertrochanteric [...] Added by Problem Lis t Migration; 2012-08-06; Hypertension with complications and [...] above: Added by Problem Clarice Hendricks; 2012-08-06; Mood disorders (2 sources) Major depressive disorder, single episode, unspecified; Translations: [Mood disorders] Onset: 8 Nonspecific chest pain (20 sources) Chest pain; Translations: [Chest pain] Episodic Nutritional deficiencies (20 sources) Unspecified protein-calorie malnutrition; Translations: [Unspecified severe protein-calorie malnutrition] Onset: 8 Chronic Comment on above: Added by Problem Clarice Hendricks; 2012-08-06; Occlusion or stenosis of precerebral [...] follow-up; Translations: [Other follow-up examination] Episodic Other aftercare (2 sources) Follow-up status; Translations: [Encounter for other orthopedic aftercare] 08-17-2024 Episodic Other and ill-defined cerebrovascular disease (20 sources) Cerebral ischemia; 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 Comment on above: Added by Hallie Clarice young Eladio; 2012-08-06; Other and ill-defined cerebrovascular disease (20 sources) Cerebral atherosclerosis; Translations: [Cerebral atherosclerosis] Onset: 3 03-02-2022 Chronic Other and ill-defined heart disease (20 sources) Left ventricular hypertrophy; Translations: [Cardiomegaly] Chronic Comment on above: Added by Problem Clarice young Eladio; 2012-10-05; Other circulatory disease (20 sources) H/O: heart disorder; Translations: [Personal history of other diseases of circulatory system] 10-30-2022 Episodic Comment on above: Added by Hallie Clarice young Eladio; 2012-10-05; Other circulatory disease (20 sources) Personal history of other diseases of circulatory system; Translations: [Acute Myocardial Infarction] Episodic Other circulatory disease (20 sources) H/O: angina pectoris; Translations: [Personal history of other diseases of circulatory system] Episodic Comment on above: Added by Hallie Clarice young Eladio; 2012-10-05; Other circulatory disease (7 sources) Personal history of other diseases of the circulatory system; Translations: [Personal history of other diseases of circulatory system] 10-30-2022 Episodic Other circulatory disease (12 sources) Elevated blood pressure; Translations: [Elevated blood-pressure reading, without diagnosis of hypertension] 07-25-2024 Episodic Other connective tissue disease (2 sources) History of right total knee replacement; Translations: [Presence of right artificial knee joint] 08-17-2024 Chronic Other connective tissue disease (1 source) Presence [...] above: Added by Problem Clarice young Eladio; 2012-04-06; Moved to [facility] Jan 01 2013 4:07PM; Other gastrointestinal disorders [...] on above: Added by Problem Clarice hector Eladio; 2012-08-06; Other hereditary and degenerative nervous system conditions (20 sources) Cerebral degeneration, unspecified; Translations: [Cerebral Degenerations And Movement Disorders] Chronic Comment on above: Added by Problem Clarice young Eladio; 2012-08-06; Other injuries and conditions due to external causes (1 source) History of falling; Translations: [History of falling] Onset: 5 Episodic Other lower respiratory disease (20 sources) Personal history of other diseases of the respiratory system; Translations: [History of pleural effusion] Episodic Comment on above: Added by Problem Clarice young Eladio; 2012-08-06; Other lower respiratory disease (20 sources) [...] and visceral atherosclerosis (20 sources) Atherosclerosis of [place] arteries of the extremities with intermittent claudication; [...] Episodic Comment on above: Added by Hallie Clarice Hendricks; 2012-08-06; Spondylosis; intervertebral disc disorders; other back problems (20 sources) Lumbar spondylosis; Translations: [Lumbosacral spondylosis without myelopathy] Onset: 3 03-02-2022 Chronic Comment on above: Added by Hallie Clarice Hendricks; 2012-04-06; Moved to [facility] Jan 01 2013 4:07PM; Spondylosis; intervertebral disc [...] / Z88.1(ICD-10) Onset: 8 Unclassified (1 source) 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 / Z79.82(ICD-10) Onset: [...] / K52.9(ICD-10) Onset: 8 Unclassified (1 source) nursing home (current) use of 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/antipl atelets / Z79.02(ICD-10) [...] Onset: 8 Episodic Deficiency and other anemia (5 sources) Anemia, unspecified; Translations: [Anemia, unspecified] Onset: 8 Episodic Gastrointestinal hemorrhage (14 sources) Gastrointestinal hemorrhage; Translations: [Gastrointestinal hemorrhage, unspecified] Onset: 1 11-21-2021 Episodic Influenza (2 sources) Influenza due to [...] source) Nausea; Translations: [Nausea] Onset: 8 Episodic Noninfectious gastroenteritis (20 sources) Colitis; Translations: [Other and unspecified noninfectious gastroenteritis and colitis] Onset: 1 03-02-2022 Episodic Open wounds of head; neck; and [...] lack of coordination] Onset: 5 Episodic Other non-traumatic joint disorders (3 sources) Pain in right knee; Translations: [Right knee pain] Onset: 5 08-17-2024 Episodic Other nutritional; endocrine; and metabolic disorders [...] state] Onset: 3 Episodic Residual codes; unclassified (2 sources) Altered mental status, unspecified; Translations: [Altered mental status, unspecified] Onset: 5 Episodic Residual codes; unclassified (20 sources) Requires [...] Facility CBC-Complete Blood Cnt No Di ffon 12-05-2024 Erythrocyte distribution width (RBC) [Ratio] 13.7 % Normal 11.6-14.6 [facility] Comment on above: Order Comment: 301.2 Performed By: #### L 100.0500, L500.4050 ####[facility] [address] [place], [address] Hematocrit (Bld) [Volume fraction] 33.0 % Low 37-47 [facility] Comment on above: Order Comment: 301.2 Performed By: #### L 100.0500, L500.4050 ####[facility] [address] [place], [address] Hemoglobin (Bld) [Mass/Vol] 10.7 g/dL Low 12.0-15.0 [facility] Comment on above: Order Comment: 301.2 Performed By: #### L 100.0500, L500.4050 ####[facility] [address] [place], [address] MCH (RBC) [Entitic mass] 32.6 pg High 27.0-32.0 [facility] Comment on above: Order Comment: 301.2 Performed By: #### L 100.0500, L500.4050 ####[facility] [address] [place], [address] MCHC (RBC) [Mass/Vol] 32.4 g/dL Normal 32-36 [facility] Comment on above: Order Comment: 301.2 Performed By: #### L 100.0500, L500.4050 ####[facility] [address] [place], [address] MCV (RBC) [Entitic vol] 100.6 fL High 81-99 [facility] Comment on above: Order Comment: 301.2 Performed By: #### L 100.0500, L500.4050 ####[facility] [address] [place], [address] Platelet mean volume (Bld) [Entitic vol] 9.2 fL Normal 6.2-12.0 [facility] Comment on above: Order Comment: 301.2 Performed By: #### L 100.0500, L500.4050 ####[facility] [address] [place], [address] Platelets (Bld) [#/Vol] 189 10*3/uL Normal 150-450 [facility] Comment on above: Order Comment: 301.2 Performed By: #### L 100.0500, L500.4050 ####[facility] [address] [place], [address] RBC (Bld) [#/Vol] 3.28 10*6/uL Low 4.2-5.4 [facility] Comment on above: Order Comment: 301.2 Performed By: #### L 100.0500, L500.4050 ####[facility] [address] [place], [address] RDW SD 50.5 fl High 35.1-43.9 [facility] Comment on above: Order Comment: 301.2 Performed By: #### L 100.0500, L500.4050 ####[facility] [address] [place], [address] WBC (Bld) [#/Vol] 4.5 10*3/uL Normal 4.4-11.0 [facility] Comment on above: Order Comment: 301.2 Performed By: #### L 100.0500, L500.4050 ####[facility] [address] [place], [address] Comprehensive Metabolic Prof [facility] 12-05-2024 Albumin [Mass/Vol] 2.9 g/dL Low 3.4-4.8 [facility] Comment on above: Order Comment: 301.2 Performed By: #### L 100.0500, L500.4050 ####[facility] [address] [place], [address] Albumin/Globulin [Mass ratio] 0.9 {ratio} Normal 0.9-2.4 [facility] Comment on above: Order Comment: 301.2 Performed By: #### L 100.0500, L500.4050 ####[facility] [address] [place], [address] ALK PHOS 107 U/L High 35-104 [facility] Comment on above: Order Comment: 301.2 Performed By: #### L 100.0500, L500.4050 ####[facility] [address] [place], [address] ALT [Catalytic activity/Vol] 13 U/L Normal <=34 [facility] Comment on above: Order Comment: 301.2 Performed By: #### L 100.0500, L500.4050 ####[facility] [address] [place], [address] AST [Catalytic activity/Vol] 23 U/L Normal <=31 [facility] Comment on above: Order Comment: 301.2 Performed By: #### L 100.0500, L500.4050 ####[facility] [address] [place], [address] Bilirubin [Mass/Vol] 0.26 mg/dL Normal 0.00-1.30 [facility] Comment on above: Order Comment: 301.2 Performed By: #### L 100.0500, L500.4050 ####[facility] [address] [place], [address] BUN/CRE 15.1 RATIO Normal 10-20 [facility] Comment on above: Order Comment: 301.2 Performed By: #### L 100.0500, L500.4050 ####[facility] [address] [place], [address] Calcium [Mass/Vol] 9.4 mg/dL Normal 7.6-11.0 [facility] Comment on above: Order Comment: 301.2 Performed By: #### L 100.0500, L500.4050 ####[facility] [address] [place], [address] Chloride [Moles/Vol] 105 mmol/L Normal 98-108 [facility] Comment on above: Order Comment: 301.2 Performed By: #### L 100.0500, L500.4050 ####[facility] [address] [place], [address] CO2 [Moles/Vol] 30.0 mmol/L Normal 21.0-32.0 [facility] Comment on above: Order Comment: 301.2 Performed By: #### L 100.0500, L500.4050 ####[facility] [address] [place], [address] Creatinine [Mass/Vol] 0.83 mg/dL Normal 0.70-1.20 [facility] Comment on above: Order Comment: 301.2 Performed By: #### L 100.0500, L500.4050 ####[facility] [address] [place], [address] GAP 8 Normal 5-15 [facility] Comment on above: Order Comment: 301.2 Performed By: #### L 100.0500, L500.4050 ####[facility] [address] [place], [address] GFR/1.73 sq M.predicted among non-blacks MDRD (S/P/Bld) [Vol rate/Area] 68 mL/min/{1.73_m2} Normal >60 [facility] Comment on above: Order Comment: 301.2 Result Comment: mL/m in/1.73m2 CKD-EPI Creatinine Equation (2020) Performed By: #### L 100.0500, L500.4050 ####[facility] [address] [place], [address] Globulin (S) [Mass/Vol] 3.2 g/dL Normal 2.2-4.2 [facility] Comment on above: Order Comment: 301.2 Performed By: #### L 100.0500, L500.4050 ####[facility] [address] [place], [address] Glucose [Mass/Vol] 78 mg/dL Normal 70-99 [facility] Comment on above: Order Comment: 301.2 Performed By: #### L 100.0500, L500.4050 ####[facility] [address] [place], [address] Potassium [Moles/Vol] 3.9 mmol/L Normal 3.3-5.1 [facility] Comment on above: Order Comment: 301.2 Performed By: #### L 100.0500, L500.4050 ####[facility] [address] [place], [address] Sodium [Moles/Vol] 143 mmol/L Normal 133-145 [facility] Comment on above: Order Comment: 301.2 Performed By: #### L 100.0500, L500.4050 ####[facility] [address] [place], [address] T PROT 6.1 g/dL Normal 5.9-8.4 [facility] Comment on above: Order Comment: 301.2 Performed By: #### L 100.0500, L500.4050 ####[facility] [address] [place], [address] Urea nitrogen [Mass/Vol] 13 mg/dL Normal 4-19 [facility] Comment on above: Order Comment: 301.2 Performed By: #### L 100.0500, L500.4050 ####[facility] [address] [place], [address] Anion gap in Serum or Plasma Ordered By: Kam Ocampo on 10-25-2024 Anion gap [Moles/Vol] 9 mmol/L 5-15 [facility] BUN/creatinine ratioOrdered By: Kam Ocampo on 10-25-2024 Urea nitrogen/Creatinine [Mass ratio] 23.0 mg/mg High 10-20 [facility] Bilirubin, totalOrdered By: Kam Ocampo on 10-25-2024 Bilirubin [Mass/Vol] 0.24 mg/dL 0.00-1.30 [facility] CBC-Complete Blood Cnt No Di ffon 10-25-2024 Erythrocyte distribution width (RBC) [Ratio] 14.1 % Normal 11.6-14.6 [facility] Comment on above: Order Comment: 301.2 Performed By: #### L 500.4050, L100.0500 ####[facility] [address] [place], [address] Hematocrit (Bld) [Volume fraction] 31.0 % Low 37-47 [facility] Comment on above: Order Comment: 301.2 Performed By: #### L 500.4050, L100.0500 ####[facility] [address] [place], [address] Hemoglobin (Bld) [Mass/Vol] 10.2 g/dL Low 12.0-15.0 [facility] Comment on above: Order Comment: 301.2 Performed By: #### L 500.4050, L100.0500 ####[facility] [address] [place], [address] MCH (RBC) [Entitic mass] 33.7 pg High 27.0-32.0 [facility] Comment on above: Order Comment: 301.2 Performed By: #### L 500.4050, L100.0500 ####[facility] [address] [place], [address] MCHC (RBC) [Mass/Vol] 32.9 g/dL Normal 32-36 [facility] Comment on above: Order Comment: 301.2 Performed By: #### L 500.4050, L100.0500 ####[facility] [address] [place], [address] MCV (RBC) [Entitic vol] 102.3 fL High 81-99 [facility] Comment on above: Order Comment: 301.2 Performed By: #### L 500.4050, L100.0500 ####[facility] [address] [place], [address] Platelet mean volume (Bld) [Entitic vol] 9.5 fL Normal 6.2-12.0 [facility] Comment on above: Order Comment: 301.2 Performed By: #### L 500.4050, L100.0500 ####[facility] [address] [place], [address] Platelets (Bld) [#/Vol] 212 10*3/uL Normal 150-450 [facility] Comment on above: Order Comment: 301.2 Performed By: #### L 500.4050, L100.0500 ####[facility] [address] [place], [address] RBC (Bld) [#/Vol] 3.03 10*6/uL Low 4.2-5.4 [facility] Comment on above: Order Comment: 301.2 Performed By: #### L 500.4050, L100.0500 ####[facility] [address] [place], [address] RDW SD 52.8 fl High 35.1-43.9 [facility] Comment on above: Order Comment: 301.2 Performed By: #### L 500.4050, L100.0500 ####[facility] [address] [place], [address] WBC (Bld) [#/Vol] 4.9 10*3/uL Normal 4.4-11.0 [facility] Comment on above: Order Comment: 301.2 Performed By: #### L 500.4050, L100.0500 ####[facility] [address] [place], [address] Carbon dioxide, total [Moles /volume] in Central venous bloodOrdered By: Kam Ocampo on 10-25-2024 CO2 [Moles/Vol] 28.4 mmol/L 21.0-32.0 [facility] Chloride assayOrdered By: Dugan on 10-25-2024 Chloride [Moles/Vol] 107 mmol/L 98-108 [facility] Comprehensive Metabolic Prof ilon 10-25-2024 Albumin [Mass/Vol] 3.0 g/dL Low 3.4-4.8 [facility] Comment on above: Order Comment: 301.2 Performed By: #### L 500.4050, L100.0500 ####[facility] [address] [place], [address] Albumin/Globulin [Mass ratio] 1.1 {ratio} Normal 0.9-2.4 [facility] Comment on above: Order Comment: 301.2 Performed By: #### L 500.4050, L100.0500 ####[facility] [address] [place], [address] ALK PHOS 86 U/L Normal 35-104 [facility] Comment on above: Order Comment: 301.2 Performed By: #### L 500.4050, L100.0500 ####[facility] [address] [place], [address] ALT [Catalytic activity/Vol] 11 U/L Normal <=34 [facility] Comment on above: Order Comment: 301.2 Performed By: #### L 500.4050, L100.0500 ####[facility] [address] [place], [address] AST [Catalytic activity/Vol] 19 U/L Normal <=31 [facility] Comment on above: Order Comment: 301.2 Performed By: #### L 500.4050, L100.0500 ####[facility] [address] [place], [address] Bilirubin [Mass/Vol] 0.24 mg/dL Normal 0.00-1.30 [facility] Comment on above: Order Comment: 301.2 Performed By: #### L 500.4050, L100.0500 ####[facility] [address] [place], [address] BUN/CRE 23.0 RATIO High 10-20 [facility] Comment on above: Order Comment: 301.2 Performed By: #### L 500.4050, L100.0500 ####[facility] [address] [place], [address] Calcium [Mass/Vol] 9.7 mg/dL Normal 7.6-11.0 [facility] Comment on above: Order Comment: 301.2 Performed By: #### L 500.4050, L100.0500 ####[facility] [address] [place], [address] Chloride [Moles/Vol] 107 mmol/L Normal 98-108 [facility] Comment on above: Order Comment: 301.2 Performed By: #### L 500.4050, L100.0500 ####[facility] [address] [place], [address] CO2 [Moles/Vol] 28.4 mmol/L Normal 21.0-32.0 [facility] Comment on above: Order Comment: 301.2 Performed By: #### L 500.4050, L100.0500 ####[facility] [address] [place], [address] Creatinine [Mass/Vol] 0.86 mg/dL Normal 0.70-1.20 [facility] Comment on above: Order Comment: 301.2 Performed By: #### L 500.4050, L100.0500 ####[facility] [address] [place], [address] GAP 9 Normal 5-15 [facility] Comment on above: Order Comment: 301.2 Performed By: #### L 500.4050, L100.0500 ####[facility] [address] [place], [address] GFR/1.73 sq M.predicted among non-blacks MDRD (S/P/Bld) [Vol rate/Area] 65 mL/min/{1.73_m2} Normal >60 [facility] Comment on above: Order Comment: 301.2 Result Comment: mL/m in/1.73m2 CKD-EPI Creatinine Equation (2020) Performed By: #### L 500.4050, L100.0500 ####[facility] [address] [place], [address] Globulin (S) [Mass/Vol] 2.7 g/dL Normal 2.2-4.2 [facility] Comment on above: Order Comment: 301.2 Performed By: #### L 500.4050, L100.0500 ####[facility] [address] [place], [address] Glucose [Mass/Vol] 82 mg/dL Normal 70-99 [facility] Comment on above: Order Comment: 301.2 Performed By: #### L 500.4050, L100.0500 ####[facility] [address] [place], [address] Potassium [Moles/Vol] 4.2 mmol/L Normal 3.3-5.1 [facility] Comment on above: Order Comment: 301.2 Performed By: #### L 500.4050, L100.0500 ####[facility] [address] [place], [address] Sodium [Moles/Vol] 144 mmol/L Normal 133-145 [facility] Comment on above: Order Comment: 301.2 Performed By: #### L 500.4050, L100.0500 ####[facility] [address] [place], [address] T PROT 5.7 g/dL Low 5.9-8.4 [facility] Comment on above: Order Comment: 301.2 Performed By: #### L 500.4050, L100.0500 ####[facility] [address] [place], [address] Urea nitrogen [Mass/Vol] 20 mg/dL High 4-19 [facility] Comment on above: Order Comment: 301.2 Performed By: #### L 500.4050, L100.0500 ####[facility] [address] [place], [address] Erythrocyte distribution wid th ratioOrdered By: Kam Ocampo on 10-25-2024 Erythrocyte distribution width (RBC) [Ratio] 14.1 % 11.6-14.6 [facility] Erythrocyte distribution wid th standard deviationOrdered By: Kam Ocampo on 10-25-2024 Erythrocyte distribution width (RBC) [Ratio] 52.8 fl High 35.1-43.9 [facility] Glomerular filtration rate ( GFR) estimation/1.73 sq m using serum, plasma, or whole bOrdered By: Kam Ocampo on 10-25-2024 GFR/1.73 sq M.predicted among non-blacks MDRD (S/P/Bld) [Vol rate/Area] 65 mL/min/{1.73_m2} >60 [facility] Comment on above: mL/min/1.73m2 CKD-EP I Creatinine Equation (2020) Hematocrit Auto (Bld) [Volum e fraction]Ordered By: Kam Ocampo on 10-25-2024 Hematocrit (Bld) [Volume fraction] 31.0 % Low 37-47 [facility] Hemoglobin measurementOrdere d By: Kam Ocampo on 10-25-2024 Hemoglobin (Bld) [Mass/Vol] 10.2 g/dL Low 12.0-15.0 [facility] Laboratory - Chemistry and C hemistry - challengeOrdered By: Kam Ocampo on 10-25-2024 AST [Catalytic activity/Vol] 19 U/L <32 [facility] MCV (mean corpuscular volume ) determinationOrdered By: Kam Ocampo on 10-25-2024 MCV (RBC) [Entitic vol] 102.3 fL High 81-99 [facility] Mean corpuscular hemoglobin (MCH) determinationOrdered By: Kam Ocampo on 10-25-2024 MCH (RBC) [Entitic mass] 33.7 pg High 27.0-32.0 [facility] Mean corpuscular hemoglobin concentration (MCHC) determinationOrdered By: Kam Ocampo on 10-25-2024 MCHC (RBC) [Mass/Vol] 32.9 g/dL 32-36 [facility] Mean platelet volume determi nationOrdered By: Kam Ocampo on 10-25-2024 Platelet mean volume (Bld) [Entitic vol] 9.5 fL 6.2-12.0 [facility] Platelet countOrdered By: Dugan on 10-25-2024 Platelets (Bld) [#/Vol] 212 10*3/uL 150-450 [facility] Potassium measurement (mass/ volume)Ordered By: Kam Ocampo on 10-25-2024 Potassium (Unsp spec) [Mass/Vol] 4.2 mmol/L 3.3-5.1 [facility] RBC Auto (Bld) [#/Vol]Ordere d By: Kam Ocampo on 10-25-2024 RBC (Bld) [#/Vol] 3.03 10*6/uL Low 4.2-5.4 [facility] Serum creatinine measurement (mass/volume)Ordered By: Kam Ocampo on 10-25-2024 Creatinine [Mass/Vol] 0.86 mg/dL 0.70-1.20 [facility] Serum globulin measurementOr dered By: Kam Ocampo on 10-25-2024 Globulin (S) [Mass/Vol] 2.7 g/dL 2.2-4.2 [facility] Serum glucose measurement (m ass/volume)Ordered By: Kam Ocampo on 10-25-2024 Glucose [Mass/Vol] 82 mg/dL 70-99 [facility] Serum or plasma alanine browne otransferase (ALT) measurementOrdered By: Kam Ocampo on 10-25-2024 ALT [Catalytic activity/Vol] 11 U/L <35 [facility] Serum or plasma albumin светлана urement (mass/volume)Ordered By: Kam Ocampo on 10-25-2024 Albumin [Mass/Vol] 3.0 g/dL Low 3.4-4.8 [facility] Serum or plasma albumin/glob ulin mass ratioOrdered By: Kam Ocampo on 10-25-2024 Albumin/Globulin [Mass ratio] 1.1 {ratio} 0.9-2.4 [facility] Serum or plasma alkaline noy sphatase measurementOrdered By: Kam Ocampo on 10-25-2024 ALP [Catalytic activity/Vol] 86 U/L 35-104 [facility] Serum or plasma calcium светлана urement (mass/volume)Ordered By: Kam Ocampo on 10-25-2024 Calcium [Mass/Vol] 9.7 mg/dL 7.6-11.0 [facility] Serum or plasma urea nitroge n measurement (mass/volume)Ordered By: Kam Ocampo on 10-25-2024 Urea nitrogen [Mass/Vol] 20 mg/dL High 4-19 [facility] Sodium levelOrdered By: Kam Ocampo on 10-25-2024 Sodium [Moles/Vol] 144 mmol/L 133-145 [facility] Total proteinOrdered By: Aline Ocampo on 10-25-2024 Protein [Mass/Vol] 5.7 g/dL Low 5.9-8.4 [facility] White blood cell (WBC) count Ordered By: Kam Ocampo on 10-25-2024 WBC (Bld) [#/Vol] 4.9 10*3/uL 4.4-11.0 [facility] Anion gap in Serum or Plasma Ordered By: Kam Ocampo on 09-13-2024 Anion gap [Moles/Vol] 10 mmol/L 5-15 [facility] BUN/creatinine ratioOrdered By: Kam Ocampo on 09-13-2024 Urea nitrogen/Creatinine [Mass ratio] 14.8 mg/mg 10- [facility] Basic Metabolic Profile (BMP )on 09-13-2024 BUN/CRE 14.8 RATIO Normal - [facility] Comment on above: Order Comment: 301.2 Performed By: #### L 500.2500, L100.0500 ####[facility] [address] [place], [address] Calcium [Mass/Vol] 9.7 mg/dL Normal 7.6-11.0 [facility] Comment on above: Order Comment: 301.2 Performed By: #### L 500.2500, L100.0500 ####[facility] [address] [place], [address] Chloride [Moles/Vol] 102 mmol/L Normal 98-108 [facility] Comment on above: Order Comment: 301.2 Performed By: #### L 500.2500, L100.0500 ####[facility] [address] [place], [address] CO2 [Moles/Vol] 26.8 mmol/L Normal 21.0-32.0 [facility] Comment on above: Order Comment: 301.2 Performed By: #### L 500.2500, L100.0500 ####[facility] [address] [place], [address] Creatinine [Mass/Vol] 0.86 mg/dL Normal 0.70-1.20 [facility] Comment on above: Order Comment: 301.2 Performed By: #### L 500.2500, L100.0500 ####[facility] [address] [place], [address] GAP 10 Normal 5-15 [facility] Comment on above: Order Comment: 301.2 Performed By: #### L 500.2500, L100.0500 ####[facility] [address] [place], [address] GFR/1.73 sq M.predicted among non-blacks MDRD (S/P/Bld) [Vol rate/Area] 65 mL/min/{1.73_m2} Normal >60 [facility] Comment on above: Order Comment: 301.2 Result Comment: mL/m in/1.73m2 CKD-EPI Creatinine Equation (2020) Performed By: #### L 500.2500, L100.0500 ####[facility] [address] [place], [address] Glucose [Mass/Vol] 88 mg/dL Normal 70-99 [facility] Comment on above: Order Comment: 301.2 Performed By: #### L 500.2500, L100.0500 ####[facility] [address] [place], [address] Potassium [Moles/Vol] 4.3 mmol/L Normal 3.3-5.1 [facility] Comment on above: Order Comment: 301.2 Performed By: #### L 500.2500, L100.0500 ####[facility] [address] [place], [address] Sodium [Moles/Vol] 139 mmol/L Normal 133-145 [facility] Comment on above: Order Comment: 301.2 Performed By: #### L 500.2500, L100.0500 ####[facility] [address] [place], [address] Urea nitrogen [Mass/Vol] 13 mg/dL Normal 4-19 [facility] Comment on above: Order Comment: 301.2 Performed By: #### L 500.2500, L100.0500 ####[facility] [address] [place], [address] CBC-Complete Blood Cnt No Di ffon 09-13-2024 Erythrocyte distribution width (RBC) [Ratio] 14.9 % High 11.6-14.6 [facility] Comment on above: Order Comment: 301.2 Performed By: #### L 500.2500, L100.0500 ####[facility] [address] [place], [address] Hematocrit (Bld) [Volume fraction] 35.2 % Low 37-47 [facility] Comment on above: Order Comment: 301.2 Performed By: #### L 500.2500, L100.0500 ####[facility] [address] [place], [address] Hemoglobin (Bld) [Mass/Vol] 11.4 g/dL Low 12.0-15.0 [facility] Comment on above: Order Comment: 301.2 Performed By: #### L 500.2500, L100.0500 ####[facility] [address] [place], [address] MCH (RBC) [Entitic mass] 33.2 pg High 27.0-32.0 [facility] Comment on above: Order Comment: 301.2 Performed By: #### L 500.2500, L100.0500 ####[facility] [address] [place], [address] MCHC (RBC) [Mass/Vol] 32.4 g/dL Normal 32-36 [facility] Comment on above: Order Comment: 301.2 Performed By: #### L 500.2500, L100.0500 ####[facility] [address] [place], [address] MCV (RBC) [Entitic vol] 102.6 fL High 81-99 [facility] Comment on above: Order Comment: 301.2 Performed By: #### L 500.2500, L100.0500 ####[facility] [address] [place], [address] Platelet mean volume (Bld) [Entitic vol] 9.2 fL Normal 6.2-12.0 [facility] Comment on above: Order Comment: 301.2 Performed By: #### L 500.2500, L100.0500 ####[facility] [address] [place], [address] Platelets (Bld) [#/Vol] 213 10*3/uL Normal 150-450 [facility] Comment on above: Order Comment: 301.2 Performed By: #### L 500.2500, L100.0500 ####[facility] [address] [place], [address] RBC (Bld) [#/Vol] 3.43 10*6/uL Low 4.2-5.4 [facility] Comment on above: Order Comment: 301.2 Performed By: #### L 500.2500, L100.0500 ####[facility] [address] [place], [address] RDW SD 56.9 fl High 35.1-43.9 [facility] Comment on above: Order Comment: 301.2 Performed By: #### L 500.2500, L100.0500 ####[facility] [address] [place], [address] WBC (Bld) [#/Vol] 5.9 10*3/uL Normal 4.4-11.0 [facility] Comment on above: Order Comment: 301.2 Performed By: #### L 500.2500, L100.0500 ####[facility] [address] [place], [address] Carbon dioxide, total [Moles /volume] in Central venous bloodOrdered By: Kam Ocampo on 09-13-2024 CO2 [Moles/Vol] 26.8 mmol/L 21.0-32.0 [facility] Chloride assayOrdered By: Dugan on 09-13-2024 Chloride [Moles/Vol] 102 mmol/L 98-108 [facility] Erythrocyte distribution wid th ratioOrdered By: Kam Ocampo on 09-13-2024 Erythrocyte distribution width (RBC) [Ratio] 14.9 % High 11.6-14.6 [facility] Erythrocyte distribution wid th standard deviationOrdered By: Kam Ocampo on 09-13-2024 Erythrocyte distribution width (RBC) [Ratio] 56.9 fl High 35.1-43.9 [facility] Glomerular filtration rate ( GFR) estimation/1.73 sq m using serum, plasma, or whole bOrdered By: Kam Ocampo on 09-13-2024 GFR/1.73 sq M.predicted among non-blacks MDRD (S/P/Bld) [Vol rate/Area] 65 mL/min/{1.73_m2} >60 [facility] Comment on above: mL/min/1.73m2 CKD-EP I Creatinine Equation (2020) Hematocrit Auto (Bld) [Volum e fraction]Ordered By: Kam Ocampo on 09-13-2024 Hematocrit (Bld) [Volume fraction] 35.2 % Low 37-47 [facility] Hemoglobin measurementOrdere d By: Kam Ocampo on 09-13-2024 Hemoglobin (Bld) [Mass/Vol] 11.4 g/dL Low 12.0-15.0 [facility] MCV (mean corpuscular volume ) determinationOrdered By: Kam Ocampo on 09-13-2024 MCV (RBC) [Entitic vol] 102.6 fL High 81-99 [facility] Mean corpuscular hemoglobin (MCH) determinationOrdered By: Kam Ocampo on 09-13-2024 MCH (RBC) [Entitic mass] 33.2 pg High 27.0-32.0 [facility] Mean corpuscular hemoglobin concentration (MCHC) determinationOrdered By: Kam Ocampo on 09-13-2024 MCHC (RBC) [Mass/Vol] 32.4 g/dL 32-36 [facility] Mean platelet volume determi nationOrdered By: Kam Ocampo on 09-13-2024 Platelet mean volume (Bld) [Entitic vol] 9.2 fL 6.2-12.0 [facility] Platelet countOrdered By: Dugan on 09-13-2024 Platelets (Bld) [#/Vol] 213 10*3/uL 150-450 [facility] Potassium measurement (mass/ volume)Ordered By: Kam Ocampo on 09-13-2024 Potassium (Unsp spec) [Mass/Vol] 4.3 mmol/L 3.3-5.1 [facility] RBC Auto (Bld) [#/Vol]Ordere d By: Kam Ocampo on 09-13-2024 RBC (Bld) [#/Vol] 3.43 10*6/uL Low 4.2-5.4 [facility] Serum creatinine measurement (mass/volume)Ordered By: Kam Ocampo on 09-13-2024 Creatinine [Mass/Vol] 0.86 mg/dL 0.70-1.20 [facility] Serum glucose measurement (m ass/volume)Ordered By: Kam Ocampo on 09-13-2024 Glucose [Mass/Vol] 88 mg/dL 70-99 [facility] Serum or plasma calcium светлана urement (mass/volume)Ordered By: Kam Ocampo on 09-13-2024 Calcium [Mass/Vol] 9.7 mg/dL 7.6-11.0 [facility] Serum or plasma urea nitroge n measurement (mass/volume)Ordered By: Kam Ocampo on 09-13-2024 Urea nitrogen [Mass/Vol] 13 mg/dL 4-19 [facility] Sodium levelOrdered By: Kam Ocampo on 09-13-2024 Sodium [Moles/Vol] 139 mmol/L 133-145 [facility] White blood cell (WBC) count Ordered By: Kam Ocampo on 09-13-2024 WBC (Bld) [#/Vol] 5.9 10*3/uL 4.4-11.0 [facility] HIP, UNI W/ Pelvis 2-3 Views on 08-17-2024 HIP, UNI W/ Pelvis 2-3 Views Normal [facility] Knee 3 Viewson 08-17-2024 Knee 3 Views Normal [facility] Orthopedic Visit Reporton Orthopedic Visit Report Normal [facility] Activated partial thrombopla stin time (aPTT) in platelet poor plasma by coagulation aOrdered By: Jw Evans on 08-04-2024 aPTT Coag (PPP) [Time] 29.9 s 24.1-36.2 [facility] Anion gap in Serum or Plasma Ordered By: Hayden iDaz on 08-04-2024 Anion gap [Moles/Vol] 12 mmol/L - [facility] BUN/creatinine ratioOrdered By: Hayden Diaz on 08-04-2024 Urea nitrogen/Creatinine [Mass ratio] 15.8 mg/mg 10- [facility] Basic Metabolic Profile (BMP )on 08-04-2024 BUN/CRE 15.8 RATIO Normal - [facility] Comment on above: Performed By: #### L 100.0500, L500.2500 ####[facility] [address] [place], [address] Calcium [Mass/Vol] 9.4 mg/dL Normal 7.6-11.0 [facility] Comment on above: Performed By: #### L 100.0500, L500.2500 ####[facility] [address] [place], [address] Chloride [Moles/Vol] 102 mmol/L Normal 98-108 [facility] Comment on above: Performed By: #### L 100.0500, L500.2500 ####[facility] [address] [place], [address] CO2 [Moles/Vol] 29.5 mmol/L Normal 21.0-32.0 [facility] Comment on above: Performed By: #### L 100.0500, L500.2500 ####[facility] [address] [place], [address] ECRCL 34.91 ml/min Low 50-250 [facility] Comment on above: Performed By: #### L 100.0500, L500.2500 ####[facility] [address] [place], [address] GAP 12 Normal 5-15 [facility] Comment on above: Performed By: #### L 100.0500, L500.2500 ####[facility] [address] [place], [address] GFR/1.73 sq M.predicted among non-blacks MDRD (S/P/Bld) [Vol rate/Area] 78 mL/min/{1.73_m2} Normal >60 [facility] Comment on above: Result Comment: mL/m in/1.73m2 CKD-EPI Creatinine Equation (2020) Performed By: #### L 100.0500, L500.2500 ####[facility] [address] [place], [address] Potassium [Moles/Vol] 3.4 mmol/L Normal 3.3-5.1 [facility] Comment on above: Performed By: #### L 100.0500, L500.2500 ####[facility] [address] [place], [address] Sodium [Moles/Vol] 143 mmol/L Normal 133-145 [facility] Comment on above: Performed By: #### L 100.0500, L500.2500 ####[facility] [address] [place], [address] Creatinine [Mass/Vol] 0.74 mg/dL Normal 0.70-1.20 [facility] Comment on above: Performed By: #### L 100.0500, L500.2500 ####[facility] [address] [place], [address] Glucose [Mass/Vol] 98 mg/dL Normal 70-99 [facility] Comment on above: Performed By: #### L 100.0500, L500.2500 ####[facility] [address] [place], [address] Urea nitrogen [Mass/Vol] 12 mg/dL Normal 4-19 [facility] Comment on above: Performed By: #### L 100.0500, L500.2500 ####[facility] [address] [place], [address] CBC-Complete Blood Cnt No Di ffon 08-04-2024 Erythrocyte distribution width (RBC) [Ratio] 16.7 % High 11.6-14.6 [facility] Comment on above: Performed By: #### L 100.0500, L500.2500 ####[facility] [address] [place], [address] Hematocrit (Bld) [Volume fraction] 32.0 % Low 37-47 [facility] Comment on above: Performed By: #### L 100.0500, L500.2500 ####[facility] [address] [place], [address] Hemoglobin (Bld) [Mass/Vol] 11.0 g/dL Low 12.0-15.0 [facility] Comment on above: Performed By: #### L 100.0500, L500.2500 ####[facility] [address] [place], [address] MCH (RBC) [Entitic mass] 33.6 pg High 27.0-32.0 [facility] Comment on above: Performed By: #### L 100.0500, L500.2500 ####[facility] [address] [place], [address] MCHC (RBC) [Mass/Vol] 34.4 g/dL Normal 32-36 [facility] Comment on above: Performed By: #### L 100.0500, L500.2500 ####[facility] [address] [place], [address] MCV (RBC) [Entitic vol] 97.9 fL Normal 81-99 [facility] Comment on above: Performed By: #### L 100.0500, L500.2500 ####[facility] [address] [place], [address] Platelet mean volume (Bld) [Entitic vol] 8.7 fL Normal 6.2-12.0 [facility] Comment on above: Performed By: #### L 100.0500, L500.2500 ####[facility] [address] [place], [address] Platelets (Bld) [#/Vol] 286 10*3/uL Normal 150-450 [facility] Comment on above: Performed By: #### L 100.0500, L500.2500 ####[facility] [address] [place], [address] RBC (Bld) [#/Vol] 3.27 10*6/uL Low 4.2-5.4 [facility] Comment on above: Performed By: #### L 100.0500, L500.2500 ####[facility] [address] [place], [address] RDW SD 50.4 fl High 35.1-43.9 [facility] Comment on above: Performed By: #### L 100.0500, L500.2500 ####[facility] [address] [place], [address] WBC (Bld) [#/Vol] 7.8 10*3/uL Normal 4.4-11.0 [facility] Comment on above: Performed By: #### L 100.0500, L500.2500 ####[facility] [address] [place], [address] Carbon dioxide, total [Moles /volume] in Central venous bloodOrdered By: Hayden Diaz on 08-04-2024 CO2 [Moles/Vol] 29.5 mmol/L 21.0-32.0 [facility] Chloride assayOrdered By: Elpidio Diaz on 08-04-2024 Chloride [Moles/Vol] 102 mmol/L 98-108 [facility] EGD Reporton 08-04-2024 EGD Report Normal [facility] Erythrocyte distribution wid th ratioOrdered By: Hayden Diaz on 08-04-2024 Erythrocyte distribution width (RBC) [Ratio] 16.7 % High 11.6-14.6 [facility] Erythrocyte distribution wid th standard deviationOrdered By: Hayden Diaz on 08-04-2024 Erythrocyte distribution width (RBC) [Ratio] 50.4 fl High 35.1-43.9 [facility] Glomerular filtration rate ( GFR) estimation/1.73 sq m using serum, plasma, or whole bOrdered By: Hayden Diaz on 08-04-2024 GFR/1.73 sq M.predicted among non-blacks MDRD (S/P/Bld) [Vol rate/Area] 78 mL/min/{1.73_m2} >60 [facility] Comment on above: mL/min/1.73m2 CKD-EP I Creatinine Equation (2020) Hematocrit Auto (Bld) [Volum e fraction]Ordered By: Hayden Diaz on 08-04-2024 Hematocrit (Bld) [Volume fraction] 32.0 % Low 37-47 [facility] Hemoglobin measurementOrdere d By: Hayden Diaz on 08-04-2024 Hemoglobin (Bld) [Mass/Vol] 11.0 g/dL Low 12.0-15.0 [facility] International normalized rat io (INR) calculationOrdered By: Jw Evans on 08-04-2024 INR Coag (Bld) [Relative time] 1.1 {INR} [facility] MCV (mean corpuscular volume ) determinationOrdered By: Hayden Diaz on 08-04-2024 MCV (RBC) [Entitic vol] 97.9 fL 81-99 [facility] MR/POSTOP.ANEon 08-04-2024 MR/POSTOP.ANE Normal [facility] MR/BUOSOJLS6jt 08-04-2024 MR/POSTOPAN2 Normal [facility] Mean corpuscular hemoglobin (MCH) determinationOrdered By: Hayden Diaz on 08-04-2024 MCH (RBC) [Entitic mass] 33.6 pg High 27.0-32.0 [facility] Mean corpuscular hemoglobin concentration (MCHC) determinationOrdered By: Hayden Diaz on 08-04-2024 MCHC (RBC) [Mass/Vol] 34.4 g/dL 32-36 [facility] Mean platelet volume determi nationOrdered By: Hayden Diaz on 08-04-2024 Platelet mean volume (Bld) [Entitic vol] 8.7 fL 6.2-12.0 [facility] Partial Thromboplast Timeon 08-04-2024 aPTT Coag (Bld) [Time] 29.9 s Normal 24.1-36.2 [facility] Comment on above: Order Comment: Comme nts: Pre-operative Performed By: #### L 300.0920, L300.8110, L501.9520 ####[facility] [address] [place], [address] Platelet countOrdered By: Elpidio Diaz on 08-04-2024 Platelets (Bld) [#/Vol] 286 10*3/uL 150-450 [facility] Potassium measurement (mass/ volume)Ordered By: Hayden Diaz on 08-04-2024 Potassium (Unsp spec) [Mass/Vol] 3.4 mmol/L 3.3-5.1 [facility] Prothrombin Time w/INRon INR Coag (PPP) [Relative time] 1.1 {INR} Normal [facility] Comment on above: Order Comment: Comme nts: Pre-operative Performed By: #### L 300.4310, L300.3900, L501.9520 ####[facility] [address], [address] PT Coag (PPP) [Time] 14.1 s Normal 11.7-14.9 [facility] Comment on above: Order Comment: Comme nts: Pre-operative Performed By: #### L 300.4310, L300.3900, L501.9520 ####[facility] [address] [place], [address] Prothrombin timeOrdered By: Jw Evans on 08-04-2024 PT Coag (PPP) [Time] 14.1 s 11.7-14.9 [facility] RBC Auto (Bld) [#/Vol]Ordere d By: Hayden Diaz on 08-04-2024 RBC (Bld) [#/Vol] 3.27 10*6/uL Low 4.2-5.4 [facility] Serum creatinine measurement (mass/volume)Ordered By: Hayden Diaz on 08-04-2024 Creatinine [Mass/Vol] 0.74 mg/dL 0.70-1.20 [facility] Serum glucose measurement (m ass/volume)Ordered By: Hayden Diaz on 08-04-2024 Glucose [Mass/Vol] 98 mg/dL 70-99 [facility] Serum or plasma calcium светлана urement (mass/volume)Ordered By: Hayden Diaz on 08-04-2024 Calcium [Mass/Vol] 9.4 mg/dL 7.6-11.0 [facility] Serum or plasma urea nitroge n measurement (mass/volume)Ordered By: Hayden Diaz on 08-04-2024 Urea nitrogen [Mass/Vol] 12 mg/dL 4-19 [facility] Sodium levelOrdered By: Juvenal Diaz on 08-04-2024 Sodium [Moles/Vol] 143 mmol/L 133-145 [facility] TSH DL <= 0.005 mIU/L QnOrde red By: Jw Evans on 08-04-2024 TSH Qn 1.990 uIU/mL 0.300-4.20 0 [facility] Thyroid Stim Hormone (TSH)on 08-04-2024 TSH 1.990 uIU/mL Normal 0.300-4.20 0 [facility] Comment on above: Order Comment: Matilda nts: Pre-operative Performed By: #### L 300.4310, L300.3900, L501.9520 ####[facility] [address] [place], [place], [address] White blood cell (WBC) count Ordered By: Hayden Diaz on 08-04-2024 WBC (Bld) [#/Vol] 7.8 10*3/uL 4.4-11.0 [facility] Absolute lymphocyte countOrd ered By: Janine Harrison on 08-03-2024 Lymphocytes Auto (Unsp spec) [#/Vol] 1.69 10*3/uL 0.83-4.51 [facility] Absolute neutrophil countOrd ered By: Janine Harrison on 08-03-2024 Neutrophils (Bld) [#/Vol] 4.9 10*3/uL 2.0-7.7 [facility] Automated lymphocyte count a s percentage of total leukocytesOrdered By: Janine Harrison on 08-03-2024 Lymphocytes/100 WBC Auto (Unsp spec) 23.1 % 19-41 [facility] Basic Metabolic Profile (BMP )on 08-03-2024 BUN/CRE 19.8 RATIO Normal 10-20 [facility] Comment on above: Performed By: #### L 300.3900, L100.0100, L500.2500 #### [facility] [address] [place], [address] Performed By: #### L 300.3900, L100.0100, L500.2500 ####[facility] [address] [place], [address] Calcium [Mass/Vol] 9.5 mg/dL Normal 7.6-11.0 [facility] Comment on above: Performed By: #### L 300.3900, L100.0100, L500.2500 #### [facility] [address] [place], [address] Performed By: #### L 300.3900, L100.0100, L500.2500 ####[facility] [address] [place], [address] Chloride [Moles/Vol] 99 mmol/L Normal 98-108 [facility] Comment on above: Performed By: #### L 300.3900, L100.0100, L500.2500 #### [facility] [address] [place], [address] Performed By: #### L 300.3900, L100.0100, L500.2500 ####[facility] [address] [place], [address] CO2 [Moles/Vol] 31.1 mmol/L Normal 21.0-32.0 [facility] Comment on above: Performed By: #### L 300.3900, L100.0100, L500.2500 #### [facility] [address] [place], [address] Performed By: #### L 300.3900, L100.0100, L500.2500 ####[facility] [address] [place], [address] Creatinine [Mass/Vol] 0.86 mg/dL Normal 0.70-1.20 [facility] Comment on above: Performed By: #### L 300.3900, L100.0100, L500.2500 #### [facility] [address] [place], [address] Performed By: #### L 300.3900, L100.0100, L500.2500 ####[facility] [address] [place], [address] ECRCL 1.09 ml/min Invalid Interpretation Code 50-250 [facility] Comment on above: Performed By: #### L 300.3900, L100.0100, L500.2500 #### [facility] Laboratory [address] [place], [address] Performed By: #### L 300.3900, L100.0100, L500.2500 ####[facility] [address] [place], [address] GAP 11 Normal 5-15 [facility] Comment on above: Performed By: #### L 300.3900, L100.0100, L500.2500 #### [facility] [address] [place], [address] Performed By: #### L 300.3900, L100.0100, L500.2500 ####[facility] [address] [place], [address] GFR/1.73 sq M.predicted among non-blacks MDRD (S/P/Bld) [Vol rate/Area] 65 mL/min/{1.73_m2} Normal >60 [facility] Comment on above: Result Comment: mL/m in/1.73m2 CKD-EPI Creatinine Equation (2020) Performed By: #### L 300.3900, L100.0100, L500.2500 #### [facility] [address] [place], [address] Result Comment: mL/m in/1.73m2 CKD-EPI Creatinine Equation (2020) Performed By: #### L 300.3900, L100.0100, L500.2500 ####[facility] [address] [place], [address] Glucose [Mass/Vol] 94 mg/dL Normal 70-99 [facility] Comment on above: Performed By: #### L 300.3900, L100.0100, L500.2500 #### [facility] [address] [place], [address] Performed By: #### L 300.3900, L100.0100, L500.2500 ####[facility] [address] [place], [address] Potassium [Moles/Vol] 3.4 mmol/L Normal 3.3-5.1 [facility] Comment on above: Performed By: #### L 300.3900, L100.0100, L500.2500 #### [facility] [address] [place], [address] Performed By: #### L 300.3900, L100.0100, L500.2500 ####[facility] [address] [place], [address] Sodium [Moles/Vol] 140 mmol/L Normal 133-145 [facility] Comment on above: Performed By: #### L 300.3900, L100.0100, L500.2500 #### [facility] [address] [place], [address] Performed By: #### L 300.3900, L100.0100, L500.2500 ####[facility] [address] [place], [address] Urea nitrogen [Mass/Vol] 17 mg/dL Normal 4-19 [facility] Comment on above: Performed By: #### L 300.3900, L100.0100, L500.2500 #### [facility] [address] [place], [address] Performed By: #### L 300.3900, L100.0100, L500.2500 ####[facility] [address] [place], [address] Basophil percentageOrdered B y: Janine Harrison on 08-03-2024 Basophils/100 WBC (Bld) 0.5 % 0-1 [facility] Bedside Glucoseon 08-03-2024 FINGERSTICK GLU 106 mg/dL Normal 74-106 [facility] Comment on above: Result Comment: GIAN GEMENT OF PATIENT CARE PER NURSING PROTOCOL Performed By: #### L 501.080 #### [facility] [address] [place], [address] Result Comment: GIAN GEMENT OF PATIENT CARE PER NURSING PROTOCOL Performed By: #### L 501.080 ####[facility] [address] [place], [address] Brain/Head without Contrasto n 08-03-2024 Brain/Head without Contrast [facility] Imaging Services [address] [place] [address] Brain/Head without Contrast MR#: [id number] Acct: [id number] Name: KATHERINE JUDGE Wilber Rep #: [id number] : 1935 F 89 From: Spencer jaime MD PCP: Dr. Kam Ocampo SrLeigh, DO Status: ADM IN Study: Brain/Head without Contrast Date of Exam: 07/11 07/03 Exam# [id number] Ordering Dr: Hayden Diaz DO PROCEDURE: BRAIN/HEAD [...] ACUTE INTRACRANIAL HEMORRHAGE Chronic changes. Reading Location: [id number] CC: Dr. Hayden Diaz, ; Dr. Kam Ocampo Sr., Safety Admin Assistant: Signed Normal [facility] Brain/Head without Contrast Normal [facility] CBC W/Diff, Automatedon 07-11 Absolute Lymph 1.69 X10 3/uL Normal 0.83-4.51 [facility] Comment on above: Performed By: #### L 300.3900, L100.0100, L500.2500 #### [facility] [address] [place], [address] Performed By: #### L 300.3900, L100.0100, L500.2500 ####[facility] [address] [place], [address] Absolute Neut 4.9 X10 3/uL Normal 2.0-7.7 [facility] Comment on above: Performed By: #### L 300.3900, L100.0100, L500.2500 #### [facility] [address] [place], [address] Performed By: #### L 300.3900, L100.0100, L500.2500 ####[facility] [address] [place], [address] Basophils/100 WBC (Bld) 0.5 % Normal 0-1 [facility] Comment on above: Performed By: #### L 300.3900, L100.0100, L500.2500 #### [facility] [address] [place], [address] Performed By: #### L 300.3900, L100.0100, L500.2500 ####[facility] [address] [place], [address] Eosinophils/100 WBC (Bld) 1.1 % Normal 0-5 [facility] Comment on above: Performed By: #### L 300.3900, L100.0100, L500.2500 #### [facility] [address] [place], [address] Performed By: #### L 300.3900, L100.0100, L500.2500 ####[facility] [address] [place], [address] Erythrocyte distribution width (RBC) [Ratio] 15.8 % High 11.6-14.6 [facility] Comment on above: Performed By: #### L 300.3900, L100.0100, L500.2500 #### [facility] [address] [place], [address] Performed By: #### L 300.3900, L100.0100, L500.2500 ####[facility] [address] [place], [address] Hematocrit (Bld) [Volume fraction] 27.9 % Low 37-47 [facility] Comment on above: Performed By: #### L 300.3900, L100.0100, L500.2500 #### [facility] [address] [place], [address] Performed By: #### L 300.3900, L100.0100, L500.2500 ####[facility] [address] [place], [address] IG% 0.700 Normal 0.0-0.9 [facility] Comment on above: Result Comment: IG% - Immature Granulocytes (promyelocytes, myelocytes and metamyelocytes) > 1% indicates that a LEFT SHIFT is Present. Performed By: #### L 300.3900, L100.0100, L500.2500 #### [facility] [address] [place], [address] Result Comment: IG% - Immature Granulocytes (promyelocytes, myelocytes andmetamyelocytes) > 1% indicates that a LEFT SHIFT is Present. Performed By: #### L 300.3900, L100.0100, L500.2500 ####[facility] [address] [place], [address] Lymphocytes/100 WBC (Bld) 23.1 % Normal 19-41 [facility] Comment on above: Performed By: #### L 300.3900, L100.0100, L500.2500 #### [facility] [address] [place], [address] Performed By: #### L 300.3900, L100.0100, L500.2500 ####[facility] [address] [place], [address] MCH (RBC) [Entitic mass] 33.0 pg High 27.0-32.0 [facility] Comment on above: Performed By: #### L 300.3900, L100.0100, L500.2500 #### [facility] [address] [place], [address] Performed By: #### L 300.3900, L100.0100, L500.2500 ####[facility] [address] [place], [address] MCHC (RBC) [Mass/Vol] 34.4 g/dL Normal 32-36 [facility] Comment on above: Performed By: #### L 300.3900, L100.0100, L500.2500 #### [facility] [address] [place], [address] Performed By: #### L 300.3900, L100.0100, L500.2500 ####[facility] [address] [place], [address] MCV (RBC) [Entitic vol] 95.9 fL Normal 81-99 [facility] Comment on above: Performed By: #### L 300.3900, L100.0100, L500.2500 #### [facility] [address] [place], [address] Performed By: #### L 300.3900, L100.0100, L500.2500 ####[facility] [address] [place], [address] Monocytes/100 WBC (Bld) 8.1 % Normal 0-10 [facility] Comment on above: Performed By: #### L 300.3900, L100.0100, L500.2500 #### [facility] [address] [place], [address] Performed By: #### L 300.3900, L100.0100, L500.2500 ####[facility] [address] [place], [address] Neutrophils/100 WBC (Bld) 66.5 % Normal 47-70 [facility] Comment on above: Performed By: #### L 300.3900, L100.0100, L500.2500 #### [facility] [address] [place], [address] Performed By: #### L 300.3900, L100.0100, L500.2500 ####[facility] [address] [place], [address] Nucleated RBC (Bld) [#/Vol] 0 10*3/uL Normal 0-5 [facility] Comment on above: Performed By: #### L 300.3900, L100.0100, L500.2500 #### [facility] [address] [place], [address] Performed By: #### L 300.3900, L100.0100, L500.2500 ####[facility] [address] [place], [address] Platelet mean volume (Bld) [Entitic vol] 8.9 fL Normal 6.2-12.0 [facility] Comment on above: Performed By: #### L 300.3900, L100.0100, L500.2500 #### [facility] [address] [place], [address] Performed By: #### L 300.3900, L100.0100, L500.2500 ####[facility] [address] [place], [address] Platelets (Bld) [#/Vol] 239 10*3/uL Normal 150-450 [facility] Comment on above: Performed By: #### L 300.3900, L100.0100, L500.2500 #### [facility] [address] [place], [address] Performed By: #### L 300.3900, L100.0100, L500.2500 ####[facility] [address] [place], [address] RBC (Bld) [#/Vol] 2.91 10*6/uL Low 4.2-5.4 [facility] Comment on above: Performed By: #### L 300.3900, L100.0100, L500.2500 #### [facility] [address] [place], [address] Performed By: #### L 300.3900, L100.0100, L500.2500 ####[facility] [address] [place], [address] RDW SD 48.7 fl High 35.1-43.9 [facility] Comment on above: Performed By: #### L 300.3900, L100.0100, L500.2500 #### [facility] [address] [place], [address] Performed By: #### L 300.3900, L100.0100, L500.2500 ####[facility] [address] [place], [address] WBC (Bld) [#/Vol] 7.3 10*3/uL Normal 4.4-11.0 [facility] Comment on above: Performed By: #### L 300.3900, L100.0100, L500.2500 #### [facility] [address] [place], [address] Performed By: #### L 300.3900, L100.0100, L500.2500 ####[facility] [address] [place], [address] CBC-Complete Blood Cnt No Di ffon 08-03-2024 Erythrocyte distribution width (RBC) [Ratio] 16.4 % High 11.6-14.6 [facility] Comment on above: Performed By: #### L 100.0500 #### [facility] [address] [place], [address] Performed By: #### L 100.0500 ####[facility] [address] [place], [address] Hematocrit (Bld) [Volume fraction] 32.2 % Low 37-47 [facility] Comment on above: Performed By: #### L 100.0500 #### [facility] [address] [place], [address] Performed By: #### L 100.0500 ####[facility] [address] [place], [address] Hemoglobin (Bld) [Mass/Vol] 11.0 g/dL Low 12.0-15.0 [facility] Comment on above: Performed By: #### L 100.0500 #### [facility] [address] [place], [address] Performed By: #### L 100.0500 ####[facility] [address] [place], [address] MCH (RBC) [Entitic mass] 32.9 pg High 27.0-32.0 [facility] Comment on above: Performed By: #### L 100.0500 #### [facility] [address] [place], [address] Performed By: #### L 100.0500 ####[facility] [address] [place], [address] MCHC (RBC) [Mass/Vol] 34.2 g/dL Normal 32-36 [facility] Comment on above: Performed By: #### L 100.0500 #### [facility] [address] [place], [address] Performed By: #### L 100.0500 ####[facility] [address] [place], [address] MCV (RBC) [Entitic vol] 96.4 fL Normal 81-99 [facility] Comment on above: Performed By: #### L 100.0500 #### [facility] [address] [place], [address] Performed By: #### L 100.0500 ####[facility] [address] [place], [address] Platelet mean volume (Bld) [Entitic vol] 9.0 fL Normal 6.2-12.0 [facility] Comment on above: Performed By: #### L 100.0500 #### [facility] [address] [place], [address] Performed By: #### L 100.0500 ####[facility] [address] [place], [address] Platelets (Bld) [#/Vol] 297 10*3/uL Normal 150-450 [facility] Comment on above: Performed By: #### L 100.0500 #### [facility] [address] [place], [address] Performed By: #### L 100.0500 ####[facility] [address] [place], [address] RBC (Bld) [#/Vol] 3.34 10*6/uL Low 4.2-5.4 [facility] Comment on above: Performed By: #### L 100.0500 #### [facility] [address] [place], [address] Performed By: #### L 100.0500 ####[facility] [address] [place], [address] RDW SD 49.8 fl High 35.1-43.9 [facility] Comment on above: Performed By: #### L 100.0500 #### [facility] [address] [place], [address] Performed By: #### L 100.0500 ####[facility] [address] [place], [address] WBC (Bld) [#/Vol] 8.9 10*3/uL Normal 4.4-11.0 [facility] Comment on above: Performed By: #### L 100.0500 #### [facility] [address] [place], [address] Performed By: #### L 100.0500 ####[facility] [address] [place], [address] Eosinophil percentageOrdered By: Janine Harrison on 08-03-2024 Eosinophils/100 WBC (Bld) 1.1 % 0-5 [facility] deOrdered By: Hayden Diaz on 08-03-2024 Glucose [Mass/Vol] 106 mg/dL 74-106 [facility] Comment on above: MANAGEMENT OF PATIEN T CARE PER NURSING PROTOCOL HH, Hemoglobin AND Hematocri ton 08-03-2024 Hematocrit (Bld) [Volume fraction] 28.3 % Low 37-47 [facility] Comment on above: Performed By: #### L 100.0600 #### [facility] [address] [place], [address] Performed By: #### L 100.0600 ####[facility] [address] [place], [address] HCT Normal 37-47 [facility] Comment on above: Result Comment: Canc elled via OM: MD Ordered Performed By: #### L 501.080 #### [facility] [address] [place], [address] Result Comment: Canc elled via OM: MD Ordered Performed By: #### L 100.0600 ####[facility] [address] [place], [address] HGB Normal 12.0-15.0 [facility] Comment on above: Result Comment: Canc elled via OM: MD Ordered Performed By: #### L 501.080 #### [facility] [address] [place], [address] Result Comment: Canc elled via OM: MD Ordered Performed By: #### L 100.0600 ####[facility] [address] [place], [address] Hemoglobin (Bld) [Mass/Vol] 9.6 g/dL Low 12.0-15.0 [facility] Comment on above: Performed By: #### L 100.0600 #### [facility] [address] [place], [address] Performed By: #### L 300.3900, L100.0100, L500.2500 #### [facility] [address] [place], [address] Performed By: #### L 100.0600 ####[facility] [address] [place], [address] Performed By: #### L 300.3900, L100.0100, L500.2500 ####[facility] [address] [place], [address] Immature granulocytes/100 WB C Auto (Bld)Ordered By: Janine Harrison on 08-03-2024 Immature granulocytes/100 WBC (Bld) 0.700 % 0.0-0.9 [facility] Comment on above: IG% - Immature Granu locytes (promyelocytes, myelocytes and metamyelocytes) > 1% indicates that a LEFT SHIFT is Present. MR/CON.PCM.Tian 08-03-2024 MR/CON.PCM.GI [facility] Medical Records Department [address] [place] [address] Consultation - GI 08/03/24 1537 MR#: [id number] Acct: [id number] Name: KATHERINE JUDGE Rep #: [id number] : 1935 89 From: Nomi Friend PCP: Dr. Kam Ocampo Sr., DO Status:ADM IN Location: MS3 [id number] HPI Consult Data Date of Consult: 08/03/24 HPI Narrative Reason for Consultation: Anemia HPI Narrative: KATHERINE JUDGE, is a 89 F who [id number] female with past medical history of TIA/CVA. [...] urinary bladder. Minimal intrahepatic biliary ductal dilatation. [facility] Medical History TIA (transient ischemic attack) Personal history of other diseases of digestive system Noninfective gastroenteritis and colitis, unspecified Essential hypertension Diaphragmatic hernia without obstruction or gangrene Constipation, unspecified Atherosclerotic heart disease of [place] coronary artery without angina pectoris Other specified [...] PO B (more content not included)... Normal [facility] MR/CON.PCM.GI Normal [facility] Monocyte percentageOrdered B y: Janine Harrison on 08-03-2024 Monocytes/100 WBC (Bld) 8.1 % 0-10 [facility] Neutrophil percentageOrdered By: Janine Harrison on 08-03-2024 Neutrophils/100 WBC (Bld) 66.5 % 47-70 [facility] Nucleated red blood cell per centageOrdered By: Janine Harrison on 08-03-2024 Nucleated RBC/100 WBC (Bld) [Ratio] 0 % 0-5 [facility] Pelvis without IV Contraston 08-03-2024 Pelvis without IV Contrast [facility] Imaging Services [address] [place], [place] [address] Pelvis without IV Contrast MR#: [id number] Acct: [id number] Name: KATHERINE JUDGE Rep #: [id number] : 1935 F 89 From: Spencer jaime MD PCP: Dr. Kam Ocampo Sr., DO Status: ADM IN Study: Pelvis without IV Contrast Date of Exam: 08/03 Exam# [id number] Ordering Dr: Hayden Diaz DO PROCEDURE: PELVIS [...] No evidence of localized hematoma. Reading Location: [id number] CC: Dr. Hayden Diaz, DO; Dr. Kam Ocampo Sr., DO Safety Admin Assistant: Signed Normal [facility] Pelvis without IV Contrast Normal [facility] Prothrombin Time w/INRon INR Coag (PPP) [Relative time] 1.1 {INR} Normal [facility] Comment on above: Performed By: #### L 300.3900, L100.0100, L500.2500 #### [facility] [address] [place], [address] Performed By: #### L 300.3900, L100.0100, L500.2500 ####[facility] [address] [place], [address] PT Coag (PPP) [Time] 14.6 s Normal 11.7-14.9 [facility] Comment on above: Performed By: #### L 300.3900, L100.0100, L500.2500 #### [facility] [address] [place], [address] Performed By: #### L 300.3900, L100.0100, L500.2500 ####[facility] [address] [place], [address] Urine Cultureon 08-03-2024 URC Culture exhibits no growth. Normal [facility] Comment on above: Performed By: #### L 400.0001, M100.2200 ####[facility] [address] [place], [address] Abdomen/Pelvis W IV Cont ONL Yon 08-02-2024 Abdomen/Pelvis W IV Cont ONLY [facility] Imaging Services [address] [place], [place] [address] Abdomen/Pelvis W IV Cont ONLY MR#: [id number] Acct: [id number] Name: KATHERINE JUDGE Rep #: [id number] : 1935 F 89 From: Spencer jaime MD PCP: Dr. Kam Ocampo Sr., DO Status: REG ER Study: Abdomen/Pelvis W IV Cont ONLY Date of Exam: Exam# [id number] Ordering Dr: Jamie Beltrán DO PROCEDURE: ABDOMEN/PELVIS [...] Minimal intrahepatic biliary ductal dilatation. Reading Location: [id number] CC: Dr. Kam Ocampo Sr., DO; Dr. Jamie Beltrán, DO Safety Admin Assistant: Signed Normal [facility] Abdomen/Pelvis W IV Cont ONLY Normal [facility] Absolute lymphocyte countOrd ered By: Jamie Beltrán on 08-02-2024 Lymphocytes Auto (Unsp spec) [#/Vol] 1.51 10*3/uL 0.83-4.51 [facility] Absolute neutrophil countOrd ered By: Jamie Beltrán on 08-02-2024 Neutrophils (Bld) [#/Vol] 5.4 10*3/uL 2.0-7.7 [facility] Ammoniaon 08-02-2024 Ammonia (P) [Moles/Vol] 30.4 umol/L Normal [facility] Comment on above: Performed By: #### L 500.4050, L100.0500 #### [facility] Laboratory [address] [place], [address] Performed By: #### L 503.0106, L506.0200, L503.5510, L100.0600 ####[facility] [address] [place], [address] Anion gap in Serum or Plasma Ordered By: Jamie Beltrán on 08-02-2024 Anion gap [Moles/Vol] 8 mmol/L 5-15 [facility] Antigen 08-02-2024 ANTIGEN ID Negative Normal [facility] Comment on above: Order Comment: 301.2 Performed By: #### L 500.2500, L100.0500 #### [facility] [address] [place], [address] Order Comment: CMV N EG? NNumber of units to transfuse: 1Reason for Ordering Blood: AcuteAre the blood/blood products to be transfused? YIs the patient having/had surgery? NNWhen ReadyNYA Performed By: #### B [id number], BTS, BRC, [id number], BAGM ####[facility] [address] [place], [address] Automated lymphocyte count a s percentage of total leukocytesOrdered By: Jamie Beltrán on 08-02-2024 Lymphocytes/100 WBC Auto (Unsp spec) 19.7 % 19-41 [facility] [id number] 08-02-2024 ANTIBODY ID M Normal [facility] Comment on above: Order Comment: 301.2 Performed By: #### L 500.2500, L100.0500 #### [facility] [address] [place], [address] Order Comment: CMV N EG? NNumber of units to transfuse: 1Reason for Ordering Blood: AcuteAre the blood/blood products to be transfused? YIs the patient having/had surgery? NWhen Katelyn Performed By: #### B [id number], BTS, BR, [id number], BAGM ####[facility] [address] [place], [address] BRCon 08-02-2024 RC Normal [facility] Comment on above: Result Comment: [id number] OP RC TRANSFUSED 08/02/242022 [id number] OP RC XM COMPATIBLE [id number] OP RC XM COMPATIBLE Performed By: #### L 500.2500, L100.0500 #### [facility] [address] [place], [address] Result Comment: [id number] OP RC TRANSFUSED 08/02/[id number] OP RC NOT [id number] OP RC NOT AVAILABLE Performed By: #### B [id number], BTS, BRC, R36766-4, BAGM ####[facility] [address] [place], [address] BUN/creatinine ratioOrdered By: Jamie Beltrán on 08-02-2024 Urea nitrogen/Creatinine [Mass ratio] 21.5 mg/mg High 10-20 [facility] Basophil percentageOrdered B y: Jamie Beltrán on 08-02-2024 Basophils/100 WBC (Bld) 0.4 % 0-1 [facility] Bilirubin Test strip Ql (U)O rdered By: Jamie Beltrán on 08-02-2024 Bilirubin Ql (U) Negative Negative [facility] Bilirubin, totalOrdered By: Jamie Beltrán on 08-02-2024 Bilirubin [Mass/Vol] 0.80 mg/dL 0.00-1.30 [facility] CBC W/Diff, Automatedon 07-11 Absolute Lymph 1.51 X10 3/uL Normal 0.83-4.51 [facility] Comment on above: Performed By: #### L 500.4050, L100.0500 #### [facility] [address] [place], [address] Performed By: #### L 501.2450, L500.4050, L100.0100 ####[facility] [address] [place], [address] Absolute Neut 5.4 X10 3/uL Normal 2.0-7.7 [facility] Comment on above: Performed By: #### L 500.4050, L100.0500 #### [facility] [address] [place], [address] Performed By: #### L 501.2450, L500.4050, L100.0100 ####[facility] [address] [place], [address] Basophils/100 WBC (Bld) 0.4 % Normal 0-1 [facility] Comment on above: Performed By: #### L 500.4050, L100.0500 #### [facility] [address] [place], [address] Performed By: #### L 501.2450, L500.4050, L100.0100 ####[facility] [address] [place], [address] Eosinophils/100 WBC (Bld) 1.4 % Normal 0-5 [facility] Comment on above: Performed By: #### L 500.4050, L100.0500 #### [facility] [address] [place], [address] Performed By: #### L 501.2450, L500.4050, L100.0100 ####[facility] [address] [place], [address] Erythrocyte distribution width (RBC) [Ratio] 15.9 % High 11.6-14.6 [facility] Comment on above: Performed By: #### L 500.4050, L100.0500 #### [facility] [address] [place], [address] Performed By: #### L 501.2450, L500.4050, L100.0100 ####[facility] [address] [place], [address] Hematocrit (Bld) [Volume fraction] 21.3 % Low 37-47 [facility] Comment on above: Performed By: #### L 500.4050, L100.0500 #### [facility] [address] [place], [address] Performed By: #### L 501.2450, L500.4050, L100.0100 ####[facility] [address] [place], [address] Hemoglobin (Bld) [Mass/Vol] 7.3 g/dL Low 12.0-15.0 [facility] Comment on above: Performed By: #### L 500.4050, L100.0500 #### [facility] [address] [place], [address] Performed By: #### L 501.2450, L500.4050, L100.0100 ####[facility] [address] [place], [address] IG% 0.500 Normal 0.0-0.9 [facility] Comment on above: Result Comment: IG% - Immature Granulocytes (promyelocytes, myelocytes and metamyelocytes) > 1% indicates that a LEFT SHIFT is Present. Performed By: #### L 500.4050, L100.0500 #### [facility] [address] [place], [address] Result Comment: IG% - Immature Granulocytes (promyelocytes, myelocytes andmetamyelocytes) > 1% indicates that a LEFT SHIFT is Present. Performed By: #### L 501.2450, L500.4050, L100.0100 ####[facility] [address] [place], [address] Lymphocytes/100 WBC (Bld) 19.7 % Normal 19-41 [facility] Comment on above: Performed By: #### L 500.4050, L100.0500 #### [facility] [address] [place], [address] Performed By: #### L 501.2450, L500.4050, L100.0100 ####[facility] [address] [place], [address] MCH (RBC) [Entitic mass] 34.6 pg High 27.0-32.0 [facility] Comment on above: Performed By: #### L 500.4050, L100.0500 #### [facility] [address] [place], [address] Performed By: #### L 501.2450, L500.4050, L100.0100 ####[facility] [address] [place], [address] MCHC (RBC) [Mass/Vol] 34.3 g/dL Normal 32-36 [facility] Comment on above: Performed By: #### L 500.4050, L100.0500 #### [facility] [address] [place], [address] Performed By: #### L 501.2450, L500.4050, L100.0100 ####[facility] [address] [place], [address] MCV (RBC) [Entitic vol] 100.9 fL High 81-99 [facility] Comment on above: Performed By: #### L 500.4050, L100.0500 #### [facility] [address] [place], [address] Performed By: #### L 501.2450, L500.4050, L100.0100 ####[facility] [address] [place], [address] Monocytes/100 WBC (Bld) 7.2 % Normal 0-10 [facility] Comment on above: Performed By: #### L 500.4050, L100.0500 #### [facility] [address] [place], [address] Performed By: #### L 501.2450, L500.4050, L100.0100 ####[facility] [address] [place], [address] Neutrophils/100 WBC (Bld) 70.8 % High 47-70 [facility] Comment on above: Performed By: #### L 500.4050, L100.0500 #### [facility] [address] [place], [address] Performed By: #### L 501.2450, L500.4050, L100.0100 ####[facility] [address] [place], [address] Nucleated RBC (Bld) [#/Vol] 0 10*3/uL Normal 0-5 [facility] Comment on above: Performed By: #### L 500.4050, L100.0500 #### [facility] [address] [place], [address] Performed By: #### L 501.2450, L500.4050, L100.0100 ####[facility] [address] [place], [address] Platelet mean volume (Bld) [Entitic vol] 8.9 fL Normal 6.2-12.0 [facility] Comment on above: Performed By: #### L 500.4050, L100.0500 #### [facility] [address] [place], [address] Performed By: #### L 501.2450, L500.4050, L100.0100 ####[facility] [address] [place], [address] Platelets (Bld) [#/Vol] 263 10*3/uL Normal 150-450 [facility] Comment on above: Performed By: #### L 500.4050, L100.0500 #### [facility] [address] [place], [address] Performed By: #### L 501.2450, L500.4050, L100.0100 ####[facility] [address] [place], [address] RBC (Bld) [#/Vol] 2.11 10*6/uL Low 4.2-5.4 [facility] Comment on above: Performed By: #### L 500.4050, L100.0500 #### [facility] [address] [place], [address] Performed By: #### L 501.2450, L500.4050, L100.0100 ####[facility] [address] [place], [address] RDW SD 50.4 fl High 35.1-43.9 [facility] Comment on above: Performed By: #### L 500.4050, L100.0500 #### [facility] [address] [place], [address] Performed By: #### L 501.2450, L500.4050, L100.0100 ####[facility] [address] [place], [address] WBC (Bld) [#/Vol] 7.7 10*3/uL Normal 4.4-11.0 [facility] Comment on above: Performed By: #### L 500.4050, L100.0500 #### [facility] [address] [place], [address] Performed By: #### L 501.2450, L500.4050, L100.0100 ####[facility] [address] [place], [address] Carbon dioxide, total [Moles /volume] in Central venous bloodOrdered By: Jamie Beltrán on 08-02-2024 CO2 [Moles/Vol] 34.9 mmol/L High 21.0-32.0 [facility] Chloride assayOrdered By: Juan Beltrán on 08-02-2024 Chloride [Moles/Vol] 98 mmol/L 98-108 [facility] Comprehensive Metabolic Prof ilon 08-02-2024 Albumin [Mass/Vol] 3.0 g/dL Low 3.4-4.8 [facility] Comment on above: Performed By: #### L 500.4050, L100.0500 #### [facility] [address] [place], [address] Performed By: #### L 501.2450, L500.4050, L100.0100 ####[facility] [address] [place], [address] Albumin/Globulin [Mass ratio] 1.1 {ratio} Normal 0.9-2.4 [facility] Comment on above: Performed By: #### L 500.4050, L100.0500 #### [facility] [address] [place], [address] Performed By: #### L 501.2450, L500.4050, L100.0100 ####[facility] [address] [place], [address] ALK PHOS 75 U/L Normal 35-104 [facility] Comment on above: Performed By: #### L 500.4050, L100.0500 #### [facility] [address] [place], [address] Performed By: #### L 501.2450, L500.4050, L100.0100 ####[facility] [address] [place], [address] ALT [Catalytic activity/Vol] 25 U/L Normal <=34 [facility] Comment on above: Performed By: #### L 500.4050, L100.0500 #### [facility] [address] [place], [address] Performed By: #### L 501.2450, L500.4050, L100.0100 ####[facility] [address] [place], [address] AST [Catalytic activity/Vol] 36 U/L High <=31 [facility] Comment on above: Performed By: #### L 500.4050, L100.0500 #### [facility] [address] [place], [address] Performed By: #### L 501.2450, L500.4050, L100.0100 ####[facility] [address] [place], [address] Bilirubin [Mass/Vol] 0.80 mg/dL Normal 0.00-1.30 [facility] Comment on above: Performed By: #### L 500.4050, L100.0500 #### [facility] [address] [place], [address] Performed By: #### L 501.2450, L500.4050, L100.0100 ####[facility] [address] [place], [address] BUN/CRE 21.5 RATIO High 10-20 [facility] Comment on above: Performed By: #### L 500.4050, L100.0500 #### [facility] [address] [place], [address] Performed By: #### L 501.2450, L500.4050, L100.0100 ####[facility] [address] [place], [address] Calcium [Mass/Vol] 9.7 mg/dL Normal 7.6-11.0 [facility] Comment on above: Performed By: #### L 500.4050, L100.0500 #### [facility] [address] [place], [address] Performed By: #### L 501.2450, L500.4050, L100.0100 ####[facility] [address] [place], [address] Chloride [Moles/Vol] 98 mmol/L Normal 98-108 [facility] Comment on above: Performed By: #### L 500.4050, L100.0500 #### [facility] [address] [place], [address] Performed By: #### L 501.2450, L500.4050, L100.0100 ####[facility] [address] [place], [address] CO2 [Moles/Vol] 34.9 mmol/L High 21.0-32.0 [facility] Comment on above: Performed By: #### L 500.4050, L100.0500 #### [facility] [address] [place], [address] Performed By: #### L 501.2450, L500.4050, L100.0100 ####[facility] [address] [place], [address] Creatinine [Mass/Vol] 0.83 mg/dL Normal 0.70-1.20 [facility] Comment on above: Performed By: #### L 500.4050, L100.0500 #### [facility] [address] [place], [address] Performed By: #### L 501.2450, L500.4050, L100.0100 ####[facility] [address] [place], [address] ECRCL 33.65 ml/min Low 50-250 [facility] Comment on above: Performed By: #### L 500.4050, L100.0500 #### [facility] [address] [place], [address] Performed By: #### L 501.2450, L500.4050, L100.0100 ####[facility] [address] [place], [address] GAP 8 Normal 5-15 [facility] Comment on above: Performed By: #### L 500.4050, L100.0500 #### [facility] [address] [place], [address] Performed By: #### L 501.2450, L500.4050, L100.0100 ####[facility] [address] [place], [address] GFR/1.73 sq M.predicted among non-blacks MDRD (S/P/Bld) [Vol rate/Area] 68 mL/min/{1.73_m2} Normal >60 [facility] Comment on above: Result Comment: mL/m in/1.73m2 CKD-EPI Creatinine Equation (2020) Performed By: #### L 500.4050, L100.0500 #### [facility] [address] [place], [address] Result Comment: mL/m in/1.73m2 CKD-EPI Creatinine Equation (2020) Performed By: #### L 501.2450, L500.4050, L100.0100 ####[facility] [address] [place], [address] Globulin (S) [Mass/Vol] 2.8 g/dL Normal 2.2-4.2 [facility] Comment on above: Performed By: #### L 500.4050, L100.0500 #### [facility] [address] [place], [address] Performed By: #### L 501.2450, L500.4050, L100.0100 ####[facility] [address] [place], [address] Glucose [Mass/Vol] 114 mg/dL High 70-99 [facility] Comment on above: Performed By: #### L 500.4050, L100.0500 #### [facility] [address] [place], [address] Performed By: #### L 501.2450, L500.4050, L100.0100 ####[facility] [address] [place], [address] Potassium [Moles/Vol] 3.6 mmol/L Normal 3.3-5.1 [facility] Comment on above: Performed By: #### L 500.4050, L100.0500 #### [facility] [address] [place], [address] Performed By: #### L 501.2450, L500.4050, L100.0100 ####[facility] [address] [place], [address] Sodium [Moles/Vol] 141 mmol/L Normal 133-145 [facility] Comment on above: Performed By: #### L 500.4050, L100.0500 #### [facility] [address] [place], [address] Performed By: #### L 501.2450, L500.4050, L100.0100 ####[facility] [address] [place], [address] T PROT 5.8 g/dL Low 5.9-8.4 [facility] Comment on above: Performed By: #### L 500.4050, L100.0500 #### [facility] [address] [place], [address] Performed By: #### L 501.2450, L500.4050, L100.0100 ####[facility] [address] [place], [address] Urea nitrogen [Mass/Vol] 18 mg/dL Normal 4-19 [facility] Comment on above: Performed By: #### L 500.4050, L100.0500 #### [facility] [address] [place], [address] Performed By: #### L 501.2450, L500.4050, L100.0100 ####[facility] [address] [place], [address] Emergency Department Summary on 08-02-2024 Emergency Department Summary [facility] Medical Records Department [address] [place] [address] Emergency Department Summary 08/02/24 MR#: [id number] Acct: [id number] Name: KATHERINE JUDGE Rep #: [id number] : 1935 89 From: Jamie Beltrán DO [...] replacement while in the hospital last time. [facility] Medical History TIA (transient ischemic attack) Personal history of other diseases of digestive system Noninfective gastroenteritis and colitis, unspecified Essential hypertension Diaphragmatic hernia without obstruction or gangrene Constipation, unspecified Atherosclerotic heart disease of [place] coronary artery without angina pectoris Other specified [...] 16:18 FO (more content not included)... Normal [facility] Emergency Department Summary Normal [facility] Eosinophil percentageOrdered By: Jamietimi Beltrán on 08-02-2024 Eosinophils/100 WBC (Bld) 1.4 % 0-5 [facility] Erythrocyte distribution wid th ratioOrdered By: Jamietimi Beltrán on 08-02-2024 Erythrocyte distribution width (RBC) [Ratio] 15.9 % High 11.6-14.6 [facility] Erythrocyte distribution wid th standard deviationOrdered By: Jamietimi Beltrán on 08-02-2024 Erythrocyte distribution width (RBC) [Ratio] 50.4 fl High 35.1-43.9 [facility] Ferritinon 08-02-2024 Ferritin [Mass/Vol] 524 ng/mL High 22-378 [facility] Comment on above: Order Comment: 301.2 Performed By: #### L 501.080 #### [facility] [address] [place], [place], [address] Order Comment: 301.2 Performed By: #### L 503.6027, L503.6550, L503.0106, L100.0600, L506.0200 ####[facility] [address] [place], [address] Folate [Mass/volume] in Seru m or PlasmaOrdered By: Janine Harrison on 08-02-2024 Folate [Mass/Vol] 35.60 ng/mL High 4.60-34.80 [facility] Comment on above: Hemolysis, Results w ill be affected, Requires Recollection. Folate [Mass/volume] in Seru m or PlasmaOrdered By: Kam Ocampo on 08-02-2024 Folate [Mass/Vol] 34.50 ng/mL 4.60-34.80 [facility] Folates,Serum (Folic Acid)on 08-02-2024 FOLATES,SERUM 35.60 ng/mL High 4.60-34.80 [facility] Comment on above: Result Comment: Hemo lysis, Results will be affected, Requires Recollection. Performed By: #### L 500.4050, L100.0500 #### [facility] [address] [place], [address] Result Comment: Hemo lysis, Results will be affected, Requires Recollection. Performed By: #### L 503.0106, L506.0200, L503.5510, L100.0600 ####[facility] [address] [place], [address] FOLATES,SERUM 34.50 ng/mL Normal 4.60-34.80 [facility] Comment on above: Order Comment: 301.2 Y Performed By: #### L 501.080 #### [facility] [address] [place], [address] Order Comment: 301.2 Y Performed By: #### L 503.6030, L503.6550, L503.0106, L100.0600, L506.0200 ####[facility] [address] [place], [address] Glomerular filtration rate ( GFR) estimation/1.73 sq m using serum, plasma, or whole bOrdered By: Jamie Beltrán on 08-02-2024 GFR/1.73 sq M.predicted among non-blacks MDRD (S/P/Bld) [Vol rate/Area] 68 mL/min/{1.73_m2} >60 [facility] Comment on above: mL/min/1.73m2 CKD-EP I Creatinine Equation (2020) H AND P Exam - [facility] 08-02-2024 H&P Exam - Hospitalist [facility] Medical Records Department [address] [place] [address] H P Exam - Hospitalist 08/02/24 1720 MR#: [id number] Acct: [id number] Name: KATHERINE JUDGE Rep #: [id number] : 1935 89 From: Janine Harrison MD PCP: Dr. Kam Ocampo Sr., DO Status:ADM IN Location: [facility] [place] [id number] HPI - General General Date of Admission: 08/02/24 Date of Service: 08/02/24 Chief Complaint: Low hgb HPI Narrative KATHERINE JUDGE, is a 89-year-old female with a history of TIA, hypertension, iron deficiency anemia, hip fracture repair last week, depression, GERD who presented to [facility] ED 08/02/2024 with concerns for low hemoglobin. [...] she has had any surgeries or interventions. [facility] Medical History TIA (transient ischemic attack) Personal history of other diseases of digestive system Noninfective gastroenteritis and colitis, unspecified Essential hypertension Diaphragmatic hernia without obstruction or gangrene Constipation, unspecified Atherosclerotic heart disease of [place] coronary artery without angina pectoris Other specified [...] tory cholecalci (more content not included)... Normal [facility] H&P Exam - Hospitalist Normal [facility] HH, Hemoglobin AND Hematocri ton 08-02-2024 Hematocrit (Bld) [Volume fraction] 24.2 % Low 37-47 [facility] Comment on above: Performed By: #### L 500.4050, L100.0500 #### [facility] [address] [place], [place], [address] Performed By: #### L 503.0106, L506.0200, L503.5510, L100.0600 ####[facility] [address] [place], [address] Hemoglobin (Bld) [Mass/Vol] 8.1 g/dL Low 12.0-15.0 [facility] Comment on above: Performed By: #### L 500.4050, L100.0500 #### [facility] [address] [place], [address] Performed By: #### L 503.0106, L506.0200, L503.5510, L100.0600 ####[facility] [address] [place], [address] Hematocrit (Bld) [Volume fraction] 19.0 % Low 37-47 [facility] Comment on above: Order Comment: 301.2 Performed By: #### L 501.080 #### [facility] [address] [place], [address] Order Comment: 301.2 Performed By: #### L 503.6030, L503.6550, L503.0106, L100.0600, L506.0200 ####[facility] [address] [place], [address] Hemoglobin (Bld) [Mass/Vol] 6.2 g/dL Low 12.0-15.0 [facility] Comment on above: Order Comment: 301.2 Performed By: #### L 501.080 #### [facility] [address] [place], [address] Order Comment: 301.2 Performed By: #### L 503.6030, L503.6550, L503.0106, L100.0600, L506.0200 ####[facility] [address] [place], [address] Hematocrit Auto (Bld) [Volum e fraction]Ordered By: Jamie Beltrán on 08-02-2024 Hematocrit (Bld) [Volume fraction] 21.3 % Low [address] [place] [address] Hematocrit Auto (Bld) [Volum e fraction]Ordered By: Kam Ocampo on 08-02-2024 Hematocrit (Bld) [Volume fraction] 19.0 % Low [address] [place] [address] Hemoglobin measurementOrdere d By: Jamie Beltrán on 08-02-2024 Hemoglobin (Bld) [Mass/Vol] 7.3 g/dL Low 12.0-15.0 [facility] Hemoglobin measurementOrdere d By: Kam Ocampo on 08-02-2024 Hemoglobin (Bld) [Mass/Vol] 6.2 g/dL Low 12.0-15.0 [facility] Immature granulocytes/100 WB C Auto (Bld)Ordered By: Jamie Beltrán on 08-02-2024 Immature granulocytes/100 WBC (Bld) 0.500 % 0.0-0.9 [facility] Comment on above: IG% - Immature Granu locytes (promyelocytes, myelocytes and metamyelocytes) > 1% indicates that a LEFT SHIFT is Present. Iron measurement (mass/mass) Ordered By: Kam Ocampo on 08-02-2024 Iron (Unsp spec) [Mass/Mass] 46 ug/dL Low 50-170 [facility] Iron+Iron Binding Capacityon 08-02-2024 TIBC 174 ug/dL Low 250-450 [facility] Comment on above: Order Comment: 301.2 Performed By: #### L 501.080 #### [facility] [address] [place], [place], [address] Order Comment: 301.2 Performed By: #### L 503.6030, L503.6550, L503.0106, L100.0600, L506.0200 ####[facility] [address] [place], [address] Ketones Test strip Ql (U)Ord ered By: Jamie Beltrán on 08-02-2024 Ketones Ql (U) Negative Negative [facility] Laboratory - Chemistry and C hemistry - challengeOrdered By: Jamie Beltrán on 08-02-2024 AST [Catalytic activity/Vol] 36 U/L High <32 [facility] Lipaseon 08-02-2024 Lipase [Catalytic activity/Vol] 21 U/L Normal 13-75 [facility] Comment on above: Result Comment: Chantel fraser note: LIPASE revised reference range effective 22. New Lipase methodology. Expected to produce lower values than the previous assay method. NEW Reference Range: 13 - 75 U/L Performed By: #### L 500.4050, L100.0500 #### [facility] [address] [place], [place], [address] Result Comment: Plea se note:LIPASE revised reference range effective 22.New Lipase methodology. Expected to produce lower valuesthan the previous assay method.NEW Reference Range: 13 - 75 U/L Performed By: #### L 501.2450, L500.4050, L100.0100 ####[facility] [address] [facility] [place], [address] Lipase measurementOrdered By : Jamie Beltrán on 08-02-2024 Lipase [Catalytic activity/Vol] 21 U/L 13-75 [facility] Comment on above: Please note:LIPASE r evised reference range effective 22. New Lipase methodology. Expected to produce lower values than the previous assay method. NEW Reference Range: 13 - 75 U/L MCV (mean corpuscular volume ) determinationOrdered By: Jamie Beltrán on 08-02-2024 MCV (RBC) [Entitic vol] 100.9 fL High 81-99 [facility] Mean corpuscular hemoglobin (MCH) determinationOrdered By: Jamie Beltrán on 08-02-2024 MCH (RBC) [Entitic mass] 34.6 pg High 27.0-32.0 [facility] Mean corpuscular hemoglobin concentration (MCHC) determinationOrdered By: Jamie Beltrán on 08-02-2024 MCHC (RBC) [Mass/Vol] 34.3 g/dL 32-36 [facility] Mean platelet volume determi nationOrdered By: Jamie Beltrán on 08-02-2024 Platelet mean volume (Bld) [Entitic vol] 8.9 fL 6.2-12.0 [facility] Microscopic analysis of urin e for red blood cells (RBC)Ordered By: Jamie Beltrán on 08-02-2024 Microscopic analysis of urine for red blood cells (RBC) 0-5 SEEN /hpf 0-5 [facility] Monocyte percentageOrdered B y: Jamie Beltrán on 08-02-2024 Monocytes/100 WBC (Bld) 7.2 % 0-10 [facility] Mucus LM Ql (Urine sed)Order ed By: Jamie Beltrán on 08-02-2024 Mucus Ql (Urine sed) 0 SEEN /hpf [facility] Neutrophil percentageOrdered By: Jamie Beltrán on 08-02-2024 Neutrophils/100 WBC (Bld) 70.8 % High 47-70 [facility] Nitrite Test strip Ql (U)Ord ered By: Jamie Beltrán on 08-02-2024 Nitrite Ql (U) Negative Negative [facility] No Panel InformationOrdered By: Kam Ocampo on 08-02-2024 Unsaturated Iron Binding Capacity 128 ug/dL Low 228-428 [facility] Nucleated red blood cell per centageOrdered By: Jamie Beltrán on 08-02-2024 Nucleated RBC/100 WBC (Bld) [Ratio] 0 % 0-5 [facility] Platelet countOrdered By: Juan Beltrán on 08-02-2024 Platelets (Bld) [#/Vol] 263 10*3/uL 150-450 [facility] Potassium measurement (mass/ volume)Ordered By: Jamie Beltrán on 08-02-2024 Potassium (Unsp spec) [Mass/Vol] 3.6 mmol/L 3.3-5.1 [facility] Protein Test strip Ql (U)Ord ered By: Jamie Beltrán on 08-02-2024 Protein Ql (U) Negative Negative [facility] RBC Auto (Bld) [#/Vol]Ordere d By: Jamie Beltrán on 08-02-2024 RBC (Bld) [#/Vol] 2.11 10*6/uL Low 4.2-5.4 [facility] Serum creatinine measurement (mass/volume)Ordered By: Jamie Beltrán on 08-02-2024 Creatinine [Mass/Vol] 0.83 mg/dL 0.70-1.20 [facility] Serum globulin measurementOr dered By: Jamie Beltrán on 08-02-2024 Globulin (S) [Mass/Vol] 2.8 g/dL 2.2-4.2 [facility] Serum glucose measurement (m ass/volume)Ordered By: Jamie Beltrán on 08-02-2024 Glucose [Mass/Vol] 114 mg/dL High 70-99 [facility] Serum or plasma alanine browne otransferase (ALT) measurementOrdered By: Jamie Beltrán on 08-02-2024 ALT [Catalytic activity/Vol] 25 U/L <35 [facility] Serum or plasma albumin светлана urement (mass/volume)Ordered By: Jamie Beltrán on 08-02-2024 Albumin [Mass/Vol] 3.0 g/dL Low 3.4-4.8 [facility] Serum or plasma albumin/glob ulin mass ratioOrdered By: Jamie Beltrán on 08-02-2024 Albumin/Globulin [Mass ratio] 1.1 {ratio} 0.9-2.4 [facility] Serum or plasma alkaline noy sphatase measurementOrdered By: Jamie Beltrán on 08-02-2024 ALP [Catalytic activity/Vol] 75 U/L 35-104 [facility] Serum or plasma calcium светлана urement (mass/volume)Ordered By: Jamie Beltrán on 08-02-2024 Calcium [Mass/Vol] 9.7 mg/dL 7.6-11.0 [facility] Serum or plasma ferritin maria d surement (mass/volume)Ordered By: Kam Ocampo on 08-02-2024 Ferritin [Mass/Vol] 524 ng/mL High 22-378 [facility] Serum or plasma iron saturat ion measurement (mass fraction)Ordered By: Kam Ocampo on 08-02-2024 Iron saturation [Mass fraction] 26.4 % 13-59 [facility] Comment on above: Previous reported re sult: 26.0 %Edited by: SHLOMO on 08/02/24:1531 AMENDED REPORT 08/02/24 0925 IRON SATURATION previously reported as: 26.0 % Serum or plasma urea nitroge n measurement (mass/volume)Ordered By: Jamie Beltrán on 08-02-2024 Urea nitrogen [Mass/Vol] 18 mg/dL 4-19 [facility] Sodium levelOrdered By: Howard Beltrán on 08-02-2024 Sodium [Moles/Vol] 141 mmol/L 133-145 [facility] Squamous epithelial cells de tection in urine sediment by light microscopyOrdered By: Jamie Beltrán on 08-02-2024 Epithelial cells.squamous LM Ql (Urine sed) 0-5 SEEN /hpf 5-10 [facility] Stool Occult Blood iFOBon STOB Positive Normal [facility] Comment on above: Performed By: #### L 500.2500, L100.0500 #### [facility] [address] [place], [place], [id number] Performed By: #### M 100.7900 ####[facility] [address] [place], [place], [id number] Stool gastrointestinal hemog lobin detection by immunologic methodOrdered By: Jamie Beltrán on 08-02-2024 Lower GI hemoglobin IA Ql (Stl) Positive Abnormal [facility] Total proteinOrdered By: Mary Jane Beltrán on 08-02-2024 Protein [Mass/Vol] 5.8 g/dL Low 5.9-8.4 [facility] Type AND Screenon 08-02-2024 Ab SCREEN GEL Positive Abnormal [facility] Comment on above: Order Comment: 301.2 Result Comment: AMENDED REPORT 08/02/241813: Antibody Screen previously reported as: Test not performed AMENDED REPORT 08/02/241814: Antibody Screen previously reported as: Test not performed Performed By: #### L 500.2500, L100.0500 #### [facility] [address] [place], [place], [id number] Order Comment: CMV N EG? NNumber of units to transfuse: 1Reason for Ordering Blood: AcuteAre the blood/blood products to be transfused? YIs the patient having/had surgery? NNWhen ReadyNYA Result Comment: AMENDED REPORT 08/02/241813: Antibody Screen previously reported as:Test not performed AMENDED REPORT 08/02/241814: Antibody Screen previously reported as:Test not performed Performed By: #### B [id number], BTS, BRC, [id number], BAGM ####[facility] [address] [place], [place], [id number] Urinalysis, Completeon 08-02 EPI,SQUAMOUS 0-5 SEEN Normal 5-10 [facility] Comment on above: Order Comment: ADWOA CTOR TO SPECIFY Performed By: #### L 501.080 #### [facility] [address] [place], [address] Order Comment: ADWOA CTOR TO SPECIFY Performed By: #### L 400.0001, M100.2200 ####[facility] [address] [place], [address] RBC 0-5 SEEN Normal 0-5 [facility] Comment on above: Order Comment: ADWOA CTOR TO SPECIFY Performed By: #### L 501.080 #### [facility] [address] [place], [address] Order Comment: ADWOA CTOR TO SPECIFY Performed By: #### L 400.0001, M100.2200 ####[facility] [address] [place], [address] WBC 0-5 SEEN Normal 0-5 [facility] Comment on above: Order Comment: ADWOA CTOR TO SPECIFY Performed By: #### L 501.080 #### [facility] [address] [place], [address] Order Comment: ADWOA CTOR TO SPECIFY Performed By: #### L 400.0001, M100.2200 ####[facility] [address] [place], [address] BACTERIA 0 SEEN Normal None Seen [facility] Comment on above: Order Comment: ADWOA CTOR TO SPECIFY Performed By: #### L 501.080 #### [facility] [address] [place], [address] Order Comment: ADWOA CTOR TO SPECIFY Performed By: #### L 400.0001, M100.2200 ####[facility] [address] [place], [address] Mucus Ql (Urine sed) 0 SEEN Normal [facility] Comment on above: Order Comment: ADWOA CTOR TO SPECIFY Performed By: #### L 501.080 #### [facility] [address] [place], [place], [address] Order Comment: ADWOA CTOR TO SPECIFY Performed By: #### L 400.0001, M100.2200 ####[facility] [address] [place], [place], [id number] Urine clarityOrdered By: Mary Jane Beltrán on 08-02-2024 Clarity (U) Clear Clear [facility] Urine color determinationOrd ered By: Jamie Beltrán on 08-02-2024 Color (U) Straw Yellow [facility] Urine cultureOrdered By: Mary Jane Beltrán on 08-02-2024 Bacteria identified Cx Nom (U) Culture exhibits no growth. [facility] Urine glucose detectionOrder ed By: Jamie Beltrán on 08-02-2024 Glucose Ql (U) Normal mg/dl Normal [facility] Urine leukocyte esterase det ection by dipstickOrdered By: Jamie Beltrán on 08-02-2024 Leukocyte esterase Test strip Ql (U) Negative Negative [facility] Urine pHOrdered By: Jamie akhtar on 08-02-2024 pH (U) 7.0 [pH] 5.0 - 8.0 [facility] Urine sediment bacteria coun t by microscopy (number/high power field)Ordered By: Jamie Beltrán on 08-02-2024 Bacteria LM.HPF (Urine sed) [#/Area] 0 /[HPF] None Seen [facility] Urine specific gravity measu rementOrdered By: Jamie Beltrán on 08-02-2024 Specific gravity (U) [Rel density] 1.010 1.002-1.03 0 [facility] Urine urobilinogen measureme ntOrdered By: Jamie Beltrán on 08-02-2024 Urobilinogen Ql (U) Normal mg/dl Normal [facility] Venous blood ammonia measure mentOrdered By: Janine Harrison on 08-02-2024 Ammonia (P) [Moles/Vol] 30.4 umol/L 11-51 [facility] Vitamin B12on 08-02-2024 Cobalamin (Vitamin B12) [Mass/Vol] 1365 pg/mL High 180-914 [facility] Comment on above: Performed By: #### L 500.4050, L100.0500 #### [facility] [address] [place], [address] Performed By: #### L 503.0106, L506.0200, L503.5510, L100.0600 ####[facility] [address] [place], [address] Cobalamin (Vitamin B12) [Mass/Vol] 1056 pg/mL High 180-914 [facility] Comment on above: Order Comment: 301.2 Performed By: #### L 501.080 #### [facility] [address] [place], [address] Order Comment: 301.2 Performed By: #### L 503.6030, L503.6550, L503.0106, L100.0600, L506.0200 ####[facility] [address] [place], [address] Vitamin B12 ser/plasOrdered By: Janine Harrison on 08-02-2024 Cobalamin (Vitamin B12) [Mass/Vol] 1365 pg/mL High 180-914 [facility] Vitamin B12 ser/plasOrdered By: Kam Ocampo on 08-02-2024 Cobalamin (Vitamin B12) [Mass/Vol] 1056 pg/mL High 180-914 [facility] White blood cell (WBC) count Ordered By: Jamie Beltrán on 08-02-2024 WBC (Bld) [#/Vol] 7.7 10*3/uL 4.4-11.0 [facility] White blood cell countOrdere d By: Jamie Beltrán on 08-02-2024 White blood cell count 0-5 SEEN /hpf 0-5 [facility] Anion gap in Serum or Plasma Ordered By: Kam Ocampo on 08-01-2024 Anion gap [Moles/Vol] 9 mmol/L 5-15 [facility] BUN/creatinine ratioOrdered By: Kam Ocampo on 08-01-2024 Urea nitrogen/Creatinine [Mass ratio] 19.7 mg/mg 10- [facility] Basic Metabolic Profile (BMP )on 08-01-2024 BUN/CRE 19.7 RATIO Normal - [facility] Comment on above: Order Comment: 301.2 Performed By: #### L 500.4050, L100.0500 #### [facility] [address] [place], [address] Order Comment: 301.2 Performed By: #### L 100.0500, L500.2500 ####[facility] [address] [place], [address] Calcium [Mass/Vol] 9.1 mg/dL Normal 7.6-11.0 [facility] Comment on above: Order Comment: 301.2 Performed By: #### L 500.4050, L100.0500 #### [facility] [address] [place], [address] Order Comment: 301.2 Performed By: #### L 100.0500, L500.2500 ####[facility] [address] [place], [address] Chloride [Moles/Vol] 98 mmol/L Normal 98-108 [facility] Comment on above: Order Comment: 301.2 Performed By: #### L 500.4050, L100.0500 #### [facility] [address] [place], [address] Order Comment: 301.2 Performed By: #### L 100.0500, L500.2500 ####[facility] [address] [place], [address] CO2 [Moles/Vol] 32.0 mmol/L Normal 21.0-32.0 [facility] Comment on above: Order Comment: 301.2 Performed By: #### L 500.4050, L100.0500 #### [facility] [address] [place], [address] Order Comment: 301.2 Performed By: #### L 100.0500, L500.2500 ####[facility] [address] [place], [address] Creatinine [Mass/Vol] 0.88 mg/dL Normal 0.70-1.20 [facility] Comment on above: Order Comment: 301.2 Performed By: #### L 500.4050, L100.0500 #### [facility] [address] [place], [address] Order Comment: 301.2 Performed By: #### L 100.0500, L500.2500 ####[facility] [address] [place], [address] GAP 9 Normal 5-15 [facility] Comment on above: Order Comment: 301.2 Performed By: #### L 500.4050, L100.0500 #### [facility] [address] [place], [address] Order Comment: 301.2 Performed By: #### L 100.0500, L500.2500 ####[facility] [address] [place], [address] GFR/1.73 sq M.predicted among non-blacks MDRD (S/P/Bld) [Vol rate/Area] 63 mL/min/{1.73_m2} Normal >60 [facility] Comment on above: Order Comment: 301.2 Result Comment: mL/m in/1.73m2 CKD-EPI Creatinine Equation (2020) Performed By: #### L 500.4050, L100.0500 #### [facility] [address] [place], [address] Order Comment: 301.2 Result Comment: mL/m in/1.73m2 CKD-EPI Creatinine Equation (2020) Performed By: #### L 100.0500, L500.2500 ####[facility] [address] [place], [address] Glucose [Mass/Vol] 96 mg/dL Normal 70-99 [facility] Comment on above: Order Comment: 301.2 Performed By: #### L 500.4050, L100.0500 #### [facility] [address] [place], [address] Order Comment: 301.2 Performed By: #### L 100.0500, L500.2500 ####[facility] [address] [place], [address] Potassium [Moles/Vol] 4.1 mmol/L Normal 3.3-5.1 [facility] Comment on above: Order Comment: 301.2 Performed By: #### L 500.4050, L100.0500 #### [facility] [address] [place], [address] Order Comment: 301.2 Performed By: #### L 100.0500, L500.2500 ####[facility] [address] [place], [address] Sodium [Moles/Vol] 139 mmol/L Normal 133-145 [facility] Comment on above: Order Comment: 301.2 Performed By: #### L 500.4050, L100.0500 #### [facility] [address] [place], [address] Order Comment: 301.2 Performed By: #### L 100.0500, L500.2500 ####[facility] [address] [place], [address] Urea nitrogen [Mass/Vol] 17 mg/dL Normal 4-19 [facility] Comment on above: Order Comment: 301.2 Performed By: #### L 500.4050, L100.0500 #### [facility] [address] [place], [address] Order Comment: 301.2 Performed By: #### L 100.0500, L500.2500 ####[facility] [address] [place], [address] CBC-Complete Blood Cnt No Di ffon 08-01-2024 Erythrocyte distribution width (RBC) [Ratio] 14.6 % Normal 11.6-14.6 [facility] Comment on above: Order Comment: 301.2 Performed By: #### L 500.4050, L100.0500 #### [facility] [address] [place], [address] Order Comment: 301.2 Performed By: #### L 100.0500, L500.2500 ####[facility] [address] [place], [address] Hematocrit (Bld) [Volume fraction] 20.9 % Low 37-47 [facility] Comment on above: Order Comment: 301.2 Performed By: #### L 500.4050, L100.0500 #### [facility] [address] [place], [address] Order Comment: 301.2 Performed By: #### L 100.0500, L500.2500 ####[facility] [address] [place], [address] Hemoglobin (Bld) [Mass/Vol] 7.0 g/dL Low 12.0-15.0 [facility] Comment on above: Order Comment: 301.2 Performed By: #### L 500.4050, L100.0500 #### [facility] [address] [place], [address] Order Comment: 301.2 Performed By: #### L 100.0500, L500.2500 ####[facility] [address] [place], [address] MCH (RBC) [Entitic mass] 33.7 pg High 27.0-32.0 [facility] Comment on above: Order Comment: 301.2 Performed By: #### L 500.4050, L100.0500 #### [facility] [address] [place], [address] Order Comment: 301.2 Performed By: #### L 100.0500, L500.2500 ####[facility] [address] [place], [address] MCHC (RBC) [Mass/Vol] 33.5 g/dL Normal 32-36 [facility] Comment on above: Order Comment: 301.2 Performed By: #### L 500.4050, L100.0500 #### [facility] [address] [place], [address] Order Comment: 301.2 Performed By: #### L 100.0500, L500.2500 ####[facility] [address] [place], [address] MCV (RBC) [Entitic vol] 100.5 fL High 81-99 [facility] Comment on above: Order Comment: 301.2 Performed By: #### L 500.4050, L100.0500 #### [facility] [address] [place], [address] Order Comment: 301.2 Performed By: #### L 100.0500, L500.2500 ####[facility] [address] [place], [address] Platelet mean volume (Bld) [Entitic vol] 9.3 fL Normal 6.2-12.0 [facility] Comment on above: Order Comment: 301.2 Performed By: #### L 500.4050, L100.0500 #### [facility] [address] [place], [address] Order Comment: 301.2 Performed By: #### L 100.0500, L500.2500 ####[facility] [address] [place], [address] Platelets (Bld) [#/Vol] 224 10*3/uL Normal 150-450 [facility] Comment on above: Order Comment: 301.2 Performed By: #### L 500.4050, L100.0500 #### [facility] [address] [place], [address] Order Comment: 301.2 Performed By: #### L 100.0500, L500.2500 ####[facility] [address] [place], [address] RBC (Bld) [#/Vol] 2.08 10*6/uL Low 4.2-5.4 [facility] Comment on above: Order Comment: 301.2 Performed By: #### L 500.4050, L100.0500 #### [facility] [address] [place], [address] Order Comment: 301.2 Performed By: #### L 100.0500, L500.2500 ####[facility] [address] [place], [address] RDW SD 51.6 fl High 35.1-43.9 [facility] Comment on above: Order Comment: 301.2 Performed By: #### L 500.4050, L100.0500 #### [facility] [address] [place], [address] Order Comment: 301.2 Performed By: #### L 100.0500, L500.2500 ####[facility] [address] [place], [address] WBC (Bld) [#/Vol] 6.6 10*3/uL Normal 4.4-11.0 [facility] Comment on above: Order Comment: 301.2 Performed By: #### L 500.4050, L100.0500 #### [facility] [address] [place], [place], [address] Order Comment: 301.2 Performed By: #### L 100.0500, L500.2500 ####[facility] [address] [place], [address] Carbon dioxide, total [Moles /volume] in Central venous bloodOrdered By: Kam Ocampo on 08-01-2024 CO2 [Moles/Vol] 32.0 mmol/L 21.0-32.0 [facility] Chloride assayOrdered By: Dugan on 08-01-2024 Chloride [Moles/Vol] 98 mmol/L 98-108 [facility] Erythrocyte distribution wid th ratioOrdered By: Kam Ocampo on 08-01-2024 Erythrocyte distribution width (RBC) [Ratio] 14.6 % 11.6-14.6 [facility] Erythrocyte distribution wid th standard deviationOrdered By: Kam Ocampo on 08-01-2024 Erythrocyte distribution width (RBC) [Ratio] 51.6 fl High 35.1-43.9 [facility] Glomerular filtration rate ( GFR) estimation/1.73 sq m using serum, plasma, or whole bOrdered By: Kam Ocampo on 08-01-2024 GFR/1.73 sq M.predicted among non-blacks MDRD (S/P/Bld) [Vol rate/Area] 63 mL/min/{1.73_m2} >60 [facility] Comment on above: mL/min/1.73m2 CKD-EP I Creatinine Equation (2020) Hematocrit Auto (Bld) [Volum e fraction]Ordered By: Kam Ocampo on 08-01-2024 Hematocrit (Bld) [Volume fraction] 20.9 % Low 37-47 [facility] Hemoglobin measurementOrdere d By: Kam Ocampo on 08-01-2024 Hemoglobin (Bld) [Mass/Vol] 7.0 g/dL Low 12.0-15.0 [facility] MCV (mean corpuscular volume ) determinationOrdered By: Kam Ocampo on 08-01-2024 MCV (RBC) [Entitic vol] 100.5 fL High 81-99 [facility] Mean corpuscular hemoglobin (MCH) determinationOrdered By: Kam Ocampo on 08-01-2024 MCH (RBC) [Entitic mass] 33.7 pg High 27.0-32.0 [facility] Mean corpuscular hemoglobin concentration (MCHC) determinationOrdered By: Kam Ocampo on 08-01-2024 MCHC (RBC) [Mass/Vol] 33.5 g/dL 32-36 [facility] Mean platelet volume determi nationOrdered By: Kam Ocampo on 08-01-2024 Platelet mean volume (Bld) [Entitic vol] 9.3 fL 6.2-12.0 [facility] Platelet countOrdered By: Dugan on 08-01-2024 Platelets (Bld) [#/Vol] 224 10*3/uL 150-450 [facility] Potassium measurement (mass/ volume)Ordered By: Kam Ocampo on 08-01-2024 Potassium (Unsp spec) [Mass/Vol] 4.1 mmol/L 3.3-5.1 [facility] RBC Auto (Bld) [#/Vol]Ordere d By: Kam Ocampo on 08-01-2024 RBC (Bld) [#/Vol] 2.08 10*6/uL Low 4.2-5.4 [facility] Serum creatinine measurement (mass/volume)Ordered By: Kam Ocampo on 08-01-2024 Creatinine [Mass/Vol] 0.88 mg/dL 0.70-1.20 [facility] Serum glucose measurement (m ass/volume)Ordered By: Kam Ocampo on 08-01-2024 Glucose [Mass/Vol] 96 mg/dL 70-99 [facility] Serum or plasma calcium светлана urement (mass/volume)Ordered By: Kam Ocampo on 08-01-2024 Calcium [Mass/Vol] 9.1 mg/dL 7.6-11.0 [facility] Serum or plasma urea nitroge n measurement (mass/volume)Ordered By: Kam Ocampo on 08-01-2024 Urea nitrogen [Mass/Vol] 17 mg/dL 4-19 [facility] Sodium levelOrdered By: Kam Ocampo on 08-01-2024 Sodium [Moles/Vol] 139 mmol/L 133-145 [facility] White blood cell (WBC) count Ordered By: Kam Ocampo on 08-01-2024 WBC (Bld) [#/Vol] 6.6 10*3/uL 4.4-11.0 [facility] CBC-Complete Blood Cnt No Di ffon 07-29-2024 HCT Normal 37-47 [facility] Comment on above: Result Comment: Canc elled via OM: MD Ordered Performed By: #### L 100.0500 ####[facility] [address] [place], [address] HGB Normal 12.0-15.0 [facility] Comment on above: Result Comment: Canc elled via OM: MD Ordered Performed By: #### L 100.0500 ####[facility] [address] [place], [address] MCH Normal 27.0-32.0 [facility] Comment on above: Result Comment: Canc elled via OM: MD Ordered Performed By: #### L 100.0500 ####[facility] [address] [place], [address] MCHC Normal 32-36 [facility] Comment on above: Result Comment: Canc elled via OM: MD Ordered Performed By: #### L 100.0500 ####[facility] [address] [place], [address] MCV Normal 81-99 [facility] Comment on above: Result Comment: Canc elled via OM: MD Ordered Performed By: #### L 100.0500 ####[facility] [address] [place], [address] PLT Normal 150-450 [facility] Comment on above: Result Comment: Canc elled via OM: MD Ordered Performed By: #### L 100.0500 ####[facility] [address] [place], [address] RBC Normal 4.2-5.4 [facility] Comment on above: Result Comment: Canc elled via OM: MD Ordered Performed By: #### L 100.0500 ####[facility] [address] [place], [address] RDW CV Normal 11.6-14.6 [facility] Comment on above: Result Comment: Canc elled via OM: MD Ordered Performed By: #### L 100.0500 ####[facility] [address] [place], [address] RDW SD Normal 35.1-43.9 [facility] Comment on above: Result Comment: Canc elled via OM: MD Ordered Performed By: #### L 100.0500 ####[facility] [address] [place], [address] WBC Normal 4.4-11.0 [facility] Comment on above: Result Comment: Canc elled via OM: MD Ordered Performed By: #### L 100.0500 ####[facility] [address] [place], [address] Absolute lymphocyte countOrd ered By: Neymar Cunningham on 07-28-2024 Lymphocytes Auto (Unsp spec) [#/Vol] 2.02 10*3/uL 0.83-4.51 [facility] Absolute neutrophil countOrd ered By: Neymar Cunningham on 07-28-2024 Neutrophils (Bld) [#/Vol] 5.3 10*3/uL 2.0-7.7 [facility] Anion gap in Serum or Plasma Ordered By: Neymar Cunningham on 07-28-2024 Anion gap [Moles/Vol] 7 mmol/L 5-15 [facility] Automated lymphocyte count a s percentage of total leukocytesOrdered By: Neymar Cunningham on 07-28-2024 Lymphocytes/100 WBC Auto (Unsp spec) 25.1 % [facility] BUN/creatinine ratioOrdered By: Neymar Cunningham on 07-28-2024 Urea nitrogen/Creatinine [Mass ratio] 19.7 mg/mg - [facility] Basic Metabolic Profile (BMP )on 07-28-2024 BUN/CRE 19.7 RATIO Normal - [facility] Comment on above: Performed By: #### L 500.2500, L100.0100 ####[facility] [address] [place], [address] Calcium [Mass/Vol] 8.8 mg/dL Normal 7.6-11.0 [facility] Comment on above: Performed By: #### L 500.2500, L100.0100 ####[facility] [address] [place], [address] Chloride [Moles/Vol] 101 mmol/L Normal 98-108 [facility] Comment on above: Performed By: #### L 500.2500, L100.0100 ####[facility] [address] [place], [address] CO2 [Moles/Vol] 29.4 mmol/L Normal 21.0-32.0 [facility] Comment on above: Performed By: #### L 500.2500, L100.0100 ####[facility] [address] [place], [address] Creatinine [Mass/Vol] 0.88 mg/dL Normal 0.70-1.20 [facility] Comment on above: Performed By: #### L 500.2500, L100.0100 ####[facility] [address] [place], [address] ECRCL 31.74 ml/min Low 50-250 [facility] Comment on above: Performed By: #### L 500.2500, L100.0100 ####[facility] [address] [place], [address] GAP 7 Normal 5-15 [facility] Comment on above: Performed By: #### L 500.2500, L100.0100 ####[facility] [address] [place], [address] GFR/1.73 sq M.predicted among non-blacks MDRD (S/P/Bld) [Vol rate/Area] 63 mL/min/{1.73_m2} Normal >60 [facility] Comment on above: Result Comment: mL/m in/1.73m2 CKD-EPI Creatinine Equation (2020) Performed By: #### L 500.2500, L100.0100 ####[facility] [address] [place], [address] Glucose [Mass/Vol] 98 mg/dL Normal 70-99 [facility] Comment on above: Performed By: #### L 500.2500, L100.0100 ####[facility] [address] [place], [address] Potassium [Moles/Vol] 4.2 mmol/L Normal 3.3-5.1 [facility] Comment on above: Performed By: #### L 500.2500, L100.0100 ####[facility] [address] [place], [address] Sodium [Moles/Vol] 137 mmol/L Normal 133-145 [facility] Comment on above: Performed By: #### L 500.2500, L100.0100 ####[facility] [address] [place], [address] Urea nitrogen [Mass/Vol] 17 mg/dL Normal 4-19 [facility] Comment on above: Performed By: #### L 500.2500, L100.0100 ####[facility] [address] [place], [address] Basophil percentageOrdered B y: Neymar Cunningham on 07-28-2024 Basophils/100 WBC (Bld) 0.4 % 0-1 [facility] CBC W/Diff, Automatedon 07-10 Absolute Lymph 2.02 X10 3/uL Normal 0.83-4.51 [facility] Comment on above: Performed By: #### L 500.2500, L100.0100 ####[facility] [address] [place], [address] Absolute Neut 5.3 X10 3/uL Normal 2.0-7.7 [facility] Comment on above: Performed By: #### L 500.2500, L100.0100 ####[facility] [address] [place], [address] Basophils/100 WBC (Bld) 0.4 % Normal 0-1 [facility] Comment on above: Performed By: #### L 500.2500, L100.0100 ####[facility] [address] [place], [address] Eosinophils/100 WBC (Bld) 2.9 % Normal 0-5 [facility] Comment on above: Performed By: #### L 500.2500, L100.0100 ####[facility] [address] [place], [address] Erythrocyte distribution width (RBC) [Ratio] 14.1 % Normal 11.6-14.6 [facility] Comment on above: Performed By: #### L 500.2500, L100.0100 ####[facility] [address] [place], [address] Hematocrit (Bld) [Volume fraction] 22.1 % Low 37-47 [facility] Comment on above: Performed By: #### L 500.2500, L100.0100 ####[facility] [address] [place], [address] Hemoglobin (Bld) [Mass/Vol] 7.3 g/dL Low 12.0-15.0 [facility] Comment on above: Performed By: #### L 500.2500, L100.0100 ####[facility] [address] [place], [address] IG% 0.100 Normal 0.0-0.9 [facility] Comment on above: Result Comment: IG% - Immature Granulocytes (promyelocytes, myelocytes andmetamyelocytes) > 1% indicates that a LEFT SHIFT is Present. Performed By: #### L 500.2500, L100.0100 ####[facility] [address] [place], [address] Lymphocytes/100 WBC (Bld) 25.1 % Normal 19-41 [facility] Comment on above: Performed By: #### L 500.2500, L100.0100 ####[facility] [address] [place], [address] MCH (RBC) [Entitic mass] 32.6 pg High 27.0-32.0 [facility] Comment on above: Performed By: #### L 500.2500, L100.0100 ####[facility] [address] [place], [address] MCHC (RBC) [Mass/Vol] 33.0 g/dL Normal 32-36 [facility] Comment on above: Performed By: #### L 500.2500, L100.0100 ####[facility] [address] [place], [address] MCV (RBC) [Entitic vol] 98.7 fL Normal 81-99 [facility] Comment on above: Performed By: #### L 500.2500, L100.0100 ####[facility] [address] [place], [address] Monocytes/100 WBC (Bld) 5.8 % Normal 0-10 [facility] Comment on above: Performed By: #### L 500.2500, L100.0100 ####[facility] [address] [place], [address] Neutrophils/100 WBC (Bld) 65.7 % Normal 47-70 [facility] Comment on above: Performed By: #### L 500.2500, L100.0100 ####[facility] [address] [place], [address] Nucleated RBC (Bld) [#/Vol] 0 10*3/uL Normal 0-5 [facility] Comment on above: Performed By: #### L 500.2500, L100.0100 ####[facility] [address] [place], [address] Platelet mean volume (Bld) [Entitic vol] 9.4 fL Normal 6.2-12.0 [facility] Comment on above: Performed By: #### L 500.2500, L100.0100 ####[facility] [address] [place], [address] Platelets (Bld) [#/Vol] 135 10*3/uL Low 150-450 [facility] Comment on above: Performed By: #### L 500.2500, L100.0100 ####[facility] [address] [place], [address] RBC (Bld) [#/Vol] 2.24 10*6/uL Low 4.2-5.4 [facility] Comment on above: Performed By: #### L 500.2500, L100.0100 ####[facility] [address] [place], [address] RDW SD 50.4 fl High 35.1-43.9 [facility] Comment on above: Performed By: #### L 500.2500, L100.0100 ####[facility] [address] [place], [address] WBC (Bld) [#/Vol] 8.1 10*3/uL Normal 4.4-11.0 [facility] Comment on above: Performed By: #### L 500.2500, L100.0100 ####[facility] [address] [place], [address] Carbon dioxide, total [Moles /volume] in Central venous bloodOrdered By: Neymar Cunningham on 07-28-2024 CO2 [Moles/Vol] 29.4 mmol/L 21.0-32.0 [facility] Chloride assayOrdered By: Angel Cunningham on 07-28-2024 Chloride [Moles/Vol] 101 mmol/L 98-108 [facility] Electrocardiogram reportOrde red By: Kaden Corcoran on 07-28-2024 EKG study [facility] [address] [place] [address] 12 Lead EKG 07/25/24 1542 MR#: [id number] Acct: [id number] Name: KATHERINE JUDGE Rep #:[id number] : 1935 89 From: Kaden Corcoran MD Attending Dr: Dr. Neymar Cunningham MD Status: ADM IN Ordering Dr: Jacobo Moya DO Date: 0 07/25/24 Location[place] [facility] [place] Sex: F C Admitted: 07/25/24 Test Reason [...] available Confirmed by KADEN CORCORAN MD ([id number]), sports editor SANDY BAUTISTA ([id number]) on 55:37:03 AM Referred By: Confirmed By: KADEN CORCORAN MD 07/28/24 0537 Date _ Kaden Corcoran MD CC: Dr. Kam Ocampo Sr., DO; Dr. Jacobo Moya, DO; Dr. Neymar Cunningham MD ~ Signed [facility] Work Phone: [phone] Eosinophil percentageOrdered By: Neymar Cunningham on 07-28-2024 Eosinophils/100 WBC (Bld) 2.9 % 0-5 [facility] Erythrocyte distribution wid th ratioOrdered By: Neymar Cunningham on 07-28-2024 Erythrocyte distribution width (RBC) [Ratio] 14.1 % 11.6-14.6 [facility] Erythrocyte distribution wid th standard deviationOrdered By: Neymar Cunningham on 07-28-2024 Erythrocyte distribution width (RBC) [Ratio] 50.4 fl High 35.1-43.9 [facility] Ferritinon 07-28-2024 Ferritin [Mass/Vol] 176 ng/mL Normal 22-378 [facility] Comment on above: Performed By: #### L 503.0106, L503.6030, L503.6550, L100.9950 ####[facility] [address] [place], [address] Folate [Moles/volume] in Ser um or PlasmaOrdered By: Neymar Cunningham on 07-28-2024 Folate [Moles/Vol] 23.10 ng/mL 4.60-34.80 [facility] Comment on above: Hemolysis, Results w ill be affected, Requires Recollection. Folates,Serum (Folic Acid)on 07-28-2024 FOLATES,SERUM 23.10 ng/mL Normal 4.60-34.80 [facility] Comment on above: Result Comment: Hemo lysis, Results will be affected, Requires Recollection. Performed By: #### L 506.0200 ####[facility] [address] [place], [place], [address] Glomerular filtration rate ( GFR) estimation/1.73 sq m using serum, plasma, or whole bOrdered By: Neymar Cunningham on 07-28-2024 GFR/1.73 sq M.predicted among non-blacks MDRD (S/P/Bld) [Vol rate/Area] 63 mL/min/{1.73_m2} >60 [facility] Comment on above: mL/min/1.73m2 CKD-EP I Creatinine Equation (2020) HH, Hemoglobin AND Hematocri ton 07-28-2024 HCT Normal 37-47 [facility] Comment on above: Result Comment: Canc elled via OM: Order cancelled - Patient discharged Performed By: #### L 100.0600 ####[facility] [address] [place], [address] HGB Normal 12.0-15.0 [facility] Comment on above: Result Comment: Canc elled via OM: Order cancelled - Patient discharged Performed By: #### L 100.0600 ####[facility] [address] [place], [address] HCT Normal 37-47 [facility] Comment on above: Result Comment: DANIEL ENT DISCHARGED Performed By: #### L 100.0600 ####[facility] [address] [place], [address] HGB Normal 12.0-15.0 [facility] Comment on above: Result Comment: DANIEL ENT DISCHARGED Performed By: #### L 100.0600 ####[facility] [address] [place], [address] Hematocrit Auto (Bld) [Volum e fraction]Ordered By: Neymar Cunningham on 07-28-2024 Hematocrit (Bld) [Volume fraction] 22.1 % Low 37-47 [facility] Hemoglobin measurementOrdere d By: Neymar Cunningham on 07-28-2024 Hemoglobin (Bld) [Mass/Vol] 7.3 g/dL Low 12.0-15.0 [facility] Immature granulocytes/100 WB C Auto (Bld)Ordered By: Neymar Cunningham on 07-28-2024 Immature granulocytes/100 WBC (Bld) 0.100 % 0.0-0.9 [facility] Comment on above: IG% - Immature Granu locytes (promyelocytes, myelocytes and metamyelocytes) > 1% indicates that a LEFT SHIFT is Present. Iron measurement (mass/mass) Ordered By: Neymar Cunningham on 07-28-2024 Iron (Unsp spec) [Mass/Mass] 38 ug/dL Low 50-170 [facility] Iron+Iron Binding Capacityon 07-28-2024 TIBC 175 ug/dL Low 250-450 [facility] Comment on above: Performed By: #### L 503.0106, L503.6030, L503.6550, L100.9950 ####[facility] [address] [place], [address] MCV (mean corpuscular volume ) determinationOrdered By: Neymar Cunningham on 07-28-2024 MCV (RBC) [Entitic vol] 98.7 fL 81-99 [facility] Mean corpuscular hemoglobin (MCH) determinationOrdered By: Neymar Cunningham on 07-28-2024 MCH (RBC) [Entitic mass] 32.6 pg High 27.0-32.0 [facility] Mean corpuscular hemoglobin concentration (MCHC) determinationOrdered By: Neymar Cunningham on 07-28-2024 MCHC (RBC) [Mass/Vol] 33.0 g/dL 32-36 [facility] Mean platelet volume determi nationOrdered By: Neymar Cunningham on 07-28-2024 Platelet mean volume (Bld) [Entitic vol] 9.4 fL 6.2-12.0 [facility] Monocyte percentageOrdered B y: Neymar Cunningham on 07-28-2024 Monocytes/100 WBC (Bld) 5.8 % 0-10 [facility] Neutrophil percentageOrdered By: Neymar Cunningham on 07-28-2024 Neutrophils/100 WBC (Bld) 65.7 % 47-70 [facility] No Panel InformationOrdered By: Neymar Cunningham on 07-28-2024 Unsaturated Iron Binding Capacity 137 ug/dL Low 228-428 [facility] Nucleated red blood cell per centageOrdered By: Neymar Cunningham on 07-28-2024 Nucleated RBC/100 WBC (Bld) [Ratio] 0 % 0-5 [facility] Platelet countOrdered By: Angel Cunningham on 07-28-2024 Platelets (Bld) [#/Vol] 135 10*3/uL Low 150-450 [facility] Potassium measurement (mass/ volume)Ordered By: Neymar Cunningham on 07-28-2024 Potassium (Unsp spec) [Mass/Vol] 4.2 mmol/L 3.3-5.1 [facility] RBC Auto (Bld) [#/Vol]Ordere d By: Neymar Cunningham on 07-28-2024 RBC (Bld) [#/Vol] 2.24 10*6/uL Low 4.2-5.4 [facility] Retic Panelon 07-28-2024 IM RET FRACTION 16.80 High 3.00-15.90 [facility] Comment on above: Performed By: #### L 503.0106, L503.6030, L503.6550, L100.9950 ####[facility] [address] [place], [address] RET-HE 34.0 pg Normal 30-35 [facility] Comment on above: Performed By: #### L 503.0106, L503.6030, L503.6550, L100.9950 ####[facility] [address] [place], [address] Retic Count 2.42 High 0.5-1.5 [facility] Comment on above: Performed By: #### L 503.0106, L503.6030, L503.6550, L100.9950 ####[facility] [address] [place], [address] Reticulocyte hemoglobin equi valent (RET-He) measurementOrdered By: Neymar Cunningham on 07-28-2024 Hemoglobin (Reticulocytes) [Entitic mass] 34.0 pg 30-35 [facility] Reticulocytes Auto (Bld) [#/ Vol]Ordered By: Neymar Cunningham on 07-28-2024 Reticulocytes/100 RBC (Bld) 2.42 % High 0.5-1.5 [facility] Serum creatinine measurement (mass/volume)Ordered By: Neymar Cunningham on 07-28-2024 Creatinine [Mass/Vol] 0.88 mg/dL 0.70-1.20 [facility] Serum glucose measurement (m ass/volume)Ordered By: Neymar Cunningham on 07-28-2024 Glucose [Mass/Vol] 98 mg/dL 70-99 [facility] Serum or plasma calcium светлана urement (mass/volume)Ordered By: Neymar Cunningham on 07-28-2024 Calcium [Mass/Vol] 8.8 mg/dL 7.6-11.0 [facility] Serum or plasma ferritin maria d surement (mass/volume)Ordered By: Neymar Cunningham on 07-28-2024 Ferritin [Mass/Vol] 176 ng/mL 22-378 [facility] Serum or plasma iron saturat ion measurement (mass fraction)Ordered By: Neymar Cunningham on 07-28-2024 Iron saturation [Mass fraction] 22.0 % 13-59 [facility] Comment on above: Previous reported re sult: 22.0 %Edited by: BRANDEN on 07/28/24:1516 Serum or plasma urea nitroge n measurement (mass/volume)Ordered By: Neymar Cunningham on 07-28-2024 Urea nitrogen [Mass/Vol] 17 mg/dL -19 [facility] Sodium levelOrdered By: Olive Cunningham on 07-28-2024 Sodium [Moles/Vol] 137 mmol/L 133-145 [facility] Vitamin B12on 07-28-2024 Cobalamin (Vitamin B12) [Mass/Vol] 867 pg/mL Normal 180-914 [facility] Comment on above: Performed By: #### L 503.0106, L503.6030, L503.6550, L100.9950 ####[facility] [address] [place], [place], [address] Vitamin B12 ser/plasOrdered By: Neymar Cunningham on 07-28-2024 Cobalamin (Vitamin B12) [Mass/Vol] 867 pg/mL 180-914 [facility] White blood cell (WBC) count Ordered By: Neymar Cunningham on 07-28-2024 WBC (Bld) [#/Vol] 8.1 10*3/uL 4.4-11.0 [facility] Basic Metabolic Profile (BMP )on 07-27-2024 BUN/CRE 16.5 RATIO Normal 10-20 [facility] Comment on above: Performed By: #### L 500.2500, L100.0100 ####[facility] [address] [place], [address] Calcium [Mass/Vol] 8.8 mg/dL Normal 7.6-11.0 [facility] Comment on above: Performed By: #### L 500.2500, L100.0100 ####[facility] [address] [place], [address] Chloride [Moles/Vol] 99 mmol/L Normal 98-108 [facility] Comment on above: Performed By: #### L 500.2500, L100.0100 ####[facility] [address] [place], [address] CO2 [Moles/Vol] 27.0 mmol/L Normal 21.0-32.0 [facility] Comment on above: Performed By: #### L 500.2500, L100.0100 ####[facility] [address] [place], [address] Creatinine [Mass/Vol] 0.79 mg/dL Normal 0.70-1.20 [facility] Comment on above: Performed By: #### L 500.2500, L100.0100 ####[facility] [address] [place], [address] ECRCL 34.91 ml/min Low 50-250 [facility] Comment on above: Performed By: #### L 500.2500, L100.0100 ####[facility] [address] [place], [address] GAP 9 Normal 5-15 [facility] Comment on above: Performed By: #### L 500.2500, L100.0100 ####[facility] [address] [place], [address] GFR/1.73 sq M.predicted among non-blacks MDRD (S/P/Bld) [Vol rate/Area] 72 mL/min/{1.73_m2} Normal >60 [facility] Comment on above: Result Comment: mL/m in/1.73m2 CKD-EPI Creatinine Equation (2020) Performed By: #### L 500.2500, L100.0100 ####[facility] [address] [place], [address] Glucose [Mass/Vol] 140 mg/dL High 70-99 [facility] Comment on above: Performed By: #### L 500.2500, L100.0100 ####[facility] [address] [place], [address] Potassium [Moles/Vol] 4.6 mmol/L Normal 3.3-5.1 [facility] Comment on above: Performed By: #### L 500.2500, L100.0100 ####[facility] [address] [place], [address] Sodium [Moles/Vol] 135 mmol/L Normal 133-145 [facility] Comment on above: Performed By: #### L 500.2500, L100.0100 ####[facility] [address] [place], [address] Urea nitrogen [Mass/Vol] 13 mg/dL Normal 4-19 [facility] Comment on above: Performed By: #### L 500.2500, L100.0100 ####[facility] [address] [place], [address] CBC W/Diff, Automatedon 07-10 Absolute Lymph 0.91 X10 3/uL Normal 0.83-4.51 [facility] Comment on above: Performed By: #### L 500.2500, L100.0100 ####[facility] [address] [place], [address] Absolute Neut 9.4 X10 3/uL High 2.0-7.7 [facility] Comment on above: Performed By: #### L 500.2500, L100.0100 ####[facility] [address] [place], [address] Basophils/100 WBC (Bld) 0.1 % Normal 0-1 [facility] Comment on above: Performed By: #### L 500.2500, L100.0100 ####[facility] [address] [place], [address] Eosinophils/100 WBC (Bld) 0.0 % Normal 0-5 [facility] Comment on above: Performed By: #### L 500.2500, L100.0100 ####[facility] [address] [place], [address] Erythrocyte distribution width (RBC) [Ratio] 14.2 % Normal 11.6-14.6 [facility] Comment on above: Performed By: #### L 500.2500, L100.0100 ####[facility] [address] [place], [address] Hematocrit (Bld) [Volume fraction] 27.0 % Low 37-47 [facility] Comment on above: Performed By: #### L 500.2500, L100.0100 ####[facility] [address] [place], [address] Hemoglobin (Bld) [Mass/Vol] 9.0 g/dL Low 12.0-15.0 [facility] Comment on above: Performed By: #### L 500.2500, L100.0100 ####[facility] [address] [place], [address] IG% 0.400 Normal 0.0-0.9 [facility] Comment on above: Result Comment: IG% - Immature Granulocytes (promyelocytes, myelocytes andmetamyelocytes) > 1% indicates that a LEFT SHIFT is Present. Performed By: #### L 500.2500, L100.0100 ####[facility] [address] [place], [address] Lymphocytes/100 WBC (Bld) 8.5 % Low 19-41 [facility] Comment on above: Performed By: #### L 500.2500, L100.0100 ####[facility] [address] [place], [address] MCH (RBC) [Entitic mass] 33.0 pg High 27.0-32.0 [facility] Comment on above: Performed By: #### L 500.2500, L100.0100 ####[facility] [address] [place], [address] MCHC (RBC) [Mass/Vol] 33.3 g/dL Normal 32-36 [facility] Comment on above: Performed By: #### L 500.2500, L100.0100 ####[facility] [address] [place], [address] MCV (RBC) [Entitic vol] 98.9 fL Normal 81-99 [facility] Comment on above: Performed By: #### L 500.2500, L100.0100 ####[facility] [address] [place], [address] Monocytes/100 WBC (Bld) 2.9 % Normal 0-10 [facility] Comment on above: Performed By: #### L 500.2500, L100.0100 ####[facility] [address] [place], [address] Neutrophils/100 WBC (Bld) 88.1 % High 47-70 [facility] Comment on above: Performed By: #### L 500.2500, L100.0100 ####[facility] [address] [place], [address] Nucleated RBC (Bld) [#/Vol] 0 10*3/uL Normal 0-5 [facility] Comment on above: Performed By: #### L 500.2500, L100.0100 ####[facility] [address] [place], [address] Platelet mean volume (Bld) [Entitic vol] 9.3 fL Normal 6.2-12.0 [facility] Comment on above: Performed By: #### L 500.2500, L100.0100 ####[facility] [address] [place], [address] Platelets (Bld) [#/Vol] 152 10*3/uL Normal 150-450 [facility] Comment on above: Performed By: #### L 500.2500, L100.0100 ####[facility] [address] [place], [address] RBC (Bld) [#/Vol] 2.73 10*6/uL Low 4.2-5.4 [facility] Comment on above: Performed By: #### L 500.2500, L100.0100 ####[facility] [address] [place], [address] RDW SD 51.3 fl High 35.1-43.9 [facility] Comment on above: Performed By: #### L 500.2500, L100.0100 ####[facility] [address] [place], [address] WBC (Bld) [#/Vol] 10.7 10*3/uL Normal 4.4-11.0 [facility] Comment on above: Performed By: #### L 500.2500, L100.0100 ####[facility] [address] [place], [address] Basic Metabolic Profile (BMP )on 07-26-2024 BUN/CRE 12.8 RATIO Normal 10-20 [facility] Comment on above: Performed By: #### L 500.2500, L100.0500 ####[facility] [address] [place], [address] Calcium [Mass/Vol] 8.9 mg/dL Normal 7.6-11.0 [facility] Comment on above: Performed By: #### L 500.2500, L100.0500 ####[facility] [address] [place], [address] Chloride [Moles/Vol] 99 mmol/L Normal 98-108 [facility] Comment on above: Performed By: #### L 500.2500, L100.0500 ####[facility] [address] [place], [address] CO2 [Moles/Vol] 28.3 mmol/L Normal 21.0-32.0 [facility] Comment on above: Performed By: #### L 500.2500, L100.0500 ####[facility] [address] [place], [address] Creatinine [Mass/Vol] 0.90 mg/dL Normal 0.70-1.20 [facility] Comment on above: Performed By: #### L 500.2500, L100.0500 ####[facility] [address] [place], [address] ECRCL 31.04 ml/min Low 50-250 [facility] Comment on above: Performed By: #### L 500.2500, L100.0500 ####[facility] [address] [place], [address] GAP 8 Normal 5-15 [facility] Comment on above: Performed By: #### L 500.2500, L100.0500 ####[facility] [address] [place], [address] GFR/1.73 sq M.predicted among non-blacks MDRD (S/P/Bld) [Vol rate/Area] 61 mL/min/{1.73_m2} Normal >60 [facility] Comment on above: Result Comment: mL/m in/1.73m2 CKD-EPI Creatinine Equation (2020) Performed By: #### L 500.2500, L100.0500 ####[facility] [address] [place], [address] Glucose [Mass/Vol] 151 mg/dL High 70-99 [facility] Comment on above: Performed By: #### L 500.2500, L100.0500 ####[facility] [address] [place], [address] Potassium [Moles/Vol] 4.4 mmol/L Normal 3.3-5.1 [facility] Comment on above: Performed By: #### L 500.2500, L100.0500 ####[facility] [address] [place], [address] Sodium [Moles/Vol] 135 mmol/L Normal 133-145 [facility] Comment on above: Performed By: #### L 500.2500, L100.0500 ####[facility] [address] [place], [address] Urea nitrogen [Mass/Vol] 12 mg/dL Normal 4-19 [facility] Comment on above: Performed By: #### L 500.2500, L100.0500 ####[facility] [address] [place], [address] CBC-Complete Blood Cnt No Di ffon 07-26-2024 Erythrocyte distribution width (RBC) [Ratio] 14.1 % Normal 11.6-14.6 [facility] Comment on above: Performed By: #### L 500.2500, L100.0500 ####[facility] [address] [place], [address] Hematocrit (Bld) [Volume fraction] 29.0 % Low 37-47 [facility] Comment on above: Performed By: #### L 500.2500, L100.0500 ####[facility] [address] [place], [address] Hemoglobin (Bld) [Mass/Vol] 10.0 g/dL Low 12.0-15.0 [facility] Comment on above: Performed By: #### L 500.2500, L100.0500 ####[facility] [address] [place], [address] MCH (RBC) [Entitic mass] 33.2 pg High 27.0-32.0 [facility] Comment on above: Performed By: #### L 500.2500, L100.0500 ####[facility] [address] [place], [address] MCHC (RBC) [Mass/Vol] 34.5 g/dL Normal 32-36 [facility] Comment on above: Performed By: #### L 500.2500, L100.0500 ####[facility] [address] [place], [address] MCV (RBC) [Entitic vol] 96.3 fL Normal 81-99 [facility] Comment on above: Performed By: #### L 500.2500, L100.0500 ####[facility] [address] [place], [address] Platelet mean volume (Bld) [Entitic vol] 8.9 fL Normal 6.2-12.0 [facility] Comment on above: Performed By: #### L 500.2500, L100.0500 ####[facility] [address] [place], [address] Platelets (Bld) [#/Vol] 171 10*3/uL Normal 150-450 [facility] Comment on above: Performed By: #### L 500.2500, L100.0500 ####[facility] [address] [place], [address] RBC (Bld) [#/Vol] 3.01 10*6/uL Low 4.2-5.4 [facility] Comment on above: Performed By: #### L 500.2500, L100.0500 ####[facility] [address] [place], [address] RDW SD 49.8 fl High 35.1-43.9 [facility] Comment on above: Performed By: #### L 500.2500, L100.0500 ####[facility] [address] [place], [address] WBC (Bld) [#/Vol] 8.9 10*3/uL Normal 4.4-11.0 [facility] Comment on above: Performed By: #### L 500.2500, L100.0500 ####[facility] [address] [place], [address] Echocardiogram study reportO rdered By: Kaden Corcoran on 07-26-20[address] Study [address] [facility] [address] [place] [address] Echo Complete 07/26/24 0824 MR#: [id number] Acct: [id number] Name: KATHERINE JUDGE Rep #:[id number] : 1935 89 From: Kaden Herrera Attending Dr: Dr. Neymar Cunningham MD Status: ADM IN Ordering Dr: Hayden Diaz DO Da te: 07/25/24 [place] [facility] [place] Sex: F C Admitted: 07/25/24 Reason For [...] Performed By: Celeste Gore, YUKI, RVT 07/26/24 100 Date _ Kaden Corcoran MD CC: Dr. Hayden Diaz DO; Dr. Kam Ocampo Sr., DO; Dr. Neymar Cunningham MD ~ Date Dictated: 07/26/24823 Date Transcribed: 07/26/24 100 Safety Admin Assistant: Signed [facility] Work Phone: HH, Hemoglobin AND Hematocri ton 07-26-2024 Hematocrit (Bld) [Volume fraction] 29.3 % Low 37-47 [facility] Comment on above: Performed By: #### L 100.0600 ####[facility] [address] [place], [place], [address] Hemoglobin (Bld) [Mass/Vol] 9.7 g/dL Low 12.0-15.0 [facility] Comment on above: Performed By: #### L 100.0600 ####[facility] [address] [place], [address] Hip Min 2 Views (Portable)on 07-26-2024 Hip Min 2 Views (Portable) Normal [facility] L499.0042on 07-26-2024 Trop T High Sen 27 ng/L High <=14 [facility] Comment on above: Performed By: #### L 499.0042 ####[facility] [address] [place], [place], [address] L499.0043on 07-26-2024 Trop T High Sen 25 ng/L High <=14 [facility] Comment on above: Performed By: #### L 499.0043 ####[facility] [address] [place], [place], [address] MR/POSTOP.ANEon 07-26-2024 MR/POSTOP.ANE Normal [facility] MR/YATOSURZ8tb 07-26-2024 MR/POSTOPAN2 Normal [facility] Operative Reporton Operative Report Normal [facility] TSH DL <= 0.005 mIU/L QnOrde red By: Rocky Sidhu on 07-26-2024 TSH Qn 2.060 uIU/mL 0.300-4.20 0 [facility] Thyroid Stim Hormone (TSH)on 07-26-2024 TSH 2.060 uIU/mL Normal 0.300-4.20 0 [facility] Comment on above: Performed By: #### L 501.9520 ####[facility] [address] [place], [place], [address] Troponin T.cardiac [Mass/vol ume] in Serum or Plasma by High sensitivity methodOrdered By: Hayden Diaz on 07-26-2024 Troponin T.cardiac High sensitivity method [Mass/Vol] 25 ng/L High <14 [facility] Troponin T.cardiac High sensitivity method [Mass/Vol] 27 ng/L High <14 [facility] Type AND Screenon 07-26-2024 Ab SCREEN GEL TNP Normal [facility] Comment on above: Order Comment: S Performed By: #### B , I69732-7 ####[facility] [address] [place], [address] 12 Lead EKGon 07-25-2024 12 Lead EKG Normal [facility] Absolute lymphocyte countOrd ered By: Jacobo Moya on 07-25-2024 Lymphocytes Auto (Unsp spec) [#/Vol] 1.75 10*3/uL 0.83-4.51 [facility] Absolute neutrophil countOrd ered By: Jacobo Moya on 07-25-2024 Neutrophils (Bld) [#/Vol] 5.3 10*3/uL 2.0-7.7 [facility] Activated partial thrombopla stin time (aPTT) in platelet poor plasma by coagulation aOrdered By: Jacobo Moya on 07-25-2024 aPTT Coag (PPP) [Time] 27.1 s 24.1-36.2 [facility] Anion gap in Serum or Plasma Ordered By: Jacobo Moya on 07-25-2024 Anion gap [Moles/Vol] 9 mmol/L - [facility] Automated lymphocyte count a s percentage of total leukocytesOrdered By: Jacobo Moya on 07-25-2024 Lymphocytes/100 WBC Auto (Unsp spec) 22.9 % - [facility] BUN/creatinine ratioOrdered By: Jacobo Moya on 07-25-2024 Urea nitrogen/Creatinine [Mass ratio] 13.5 mg/mg - [facility] Basic Metabolic Profile (BMP )on 07-25-2024 BUN/CRE 13.5 RATIO Normal 11-28 [facility] Comment on above: Performed By: #### L 300.4310, L500.2500, L300.3900, L100.0100 ####[facility] [address] [place], [address] Calcium [Mass/Vol] 8.8 mg/dL Normal 7.6-11.0 [facility] Comment on above: Performed By: #### L 300.4310, L500.2500, L300.3900, L100.0100 ####[facility] [address] [place], [address] Chloride [Moles/Vol] 98 mmol/L Normal 98-108 [facility] Comment on above: Performed By: #### L 300.4310, L500.2500, L300.3900, L100.0100 ####[facility] [address] [place], [address] CO2 [Moles/Vol] 26.5 mmol/L Normal 21.0-32.0 [facility] Comment on above: Performed By: #### L 300.4310, L500.2500, L300.3900, L100.0100 ####[facility] [address] [place], [address] Creatinine [Mass/Vol] 0.92 mg/dL Normal 0.70-1.20 [facility] Comment on above: Performed By: #### L 300.4310, L500.2500, L300.3900, L100.0100 ####[facility] [address] [place], [address] GAP 9 Normal 5-15 [facility] Comment on above: Performed By: #### L 300.4310, L500.2500, L300.3900, L100.0100 ####[facility] [address] [place], [address] GFR/1.73 sq M.predicted among non-blacks MDRD (S/P/Bld) [Vol rate/Area] 60 mL/min/{1.73_m2} Normal >60 [facility] Comment on above: Result Comment: mL/m in/1.73m2 CKD-EPI Creatinine Equation (2020) Performed By: #### L 300.4310, L500.2500, L300.3900, L100.0100 ####[facility] [address] [place], [address] Glucose [Mass/Vol] 126 mg/dL High 70-99 [facility] Comment on above: Performed By: #### L 300.4310, L500.2500, L300.3900, L100.0100 ####[facility] [address] [place], [address] Potassium [Moles/Vol] 5.0 mmol/L Normal 3.3-5.1 [facility] Comment on above: Result Comment: Hemo lysis present, Results??could be affected.?? Performed By: #### L 300.4310, L500.2500, L300.3900, L100.0100 ####[facility] [address] [place], [address] Sodium [Moles/Vol] 134 mmol/L Normal 133-145 [facility] Comment on above: Performed By: #### L 300.4310, L500.2500, L300.3900, L100.0100 ####[facility] [address] [place], [address] Urea nitrogen [Mass/Vol] 13 mg/dL Normal 4-19 [facility] Comment on above: Performed By: #### L 300.4310, L500.2500, L300.3900, L100.0100 ####[facility] [address] [place], [address] Basophil percentageOrdered B y: Jacobo Moya on 07-25-2024 Basophils/100 WBC (Bld) 0.4 % 0-1 [facility] Bilirubin Test strip Ql (U)O rdered By: Jacobo Moya on 07-25-2024 Bilirubin Ql (U) Negative Negative [facility] CBC W/Diff, Automatedon 07-10 Absolute Lymph 1.75 X10 3/uL Normal 0.83-4.51 [facility] Comment on above: Performed By: #### L 300.4310, L500.2500, L300.3900, L100.0100 ####[facility] [address] [place], [address] Absolute Neut 5.3 X10 3/uL Normal 2.0-7.7 [facility] Comment on above: Performed By: #### L 300.4310, L500.2500, L300.3900, L100.0100 ####[facility] [address] [place], [address] Basophils/100 WBC (Bld) 0.4 % Normal 0-1 [facility] Comment on above: Performed By: #### L 300.4310, L500.2500, L300.3900, L100.0100 ####[facility] [address] [place], [address] Eosinophils/100 WBC (Bld) 0.9 % Normal 0-5 [facility] Comment on above: Performed By: #### L 300.4310, L500.2500, L300.3900, L100.0100 ####[facility] [address] [place], [address] Erythrocyte distribution width (RBC) [Ratio] 14.1 % Normal 11.6-14.6 [facility] Comment on above: Performed By: #### L 300.4310, L500.2500, L300.3900, L100.0100 ####[facility] [address] [place], [address] Hematocrit (Bld) [Volume fraction] 31.6 % Low 37-47 [facility] Comment on above: Performed By: #### L 300.4310, L500.2500, L300.3900, L100.0100 ####[facility] [address] [place], [address] Hemoglobin (Bld) [Mass/Vol] 10.7 g/dL Low 12.0-15.0 [facility] Comment on above: Performed By: #### L 300.4310, L500.2500, L300.3900, L100.0100 ####[facility] [address] [place], [address] IG% 0.400 Normal 0.0-0.9 [facility] Comment on above: Result Comment: IG% - Immature Granulocytes (promyelocytes, myelocytes andmetamyelocytes) > 1% indicates that a LEFT SHIFT is Present. Performed By: #### L 300.4310, L500.2500, L300.3900, L100.0100 ####[facility] [address] [place], [address] Lymphocytes/100 WBC (Bld) 22.9 % Normal 19-41 [facility] Comment on above: Performed By: #### L 300.4310, L500.2500, L300.3900, L100.0100 ####[facility] [address] [place], [address] MCH (RBC) [Entitic mass] 32.6 pg High 27.0-32.0 [facility] Comment on above: Performed By: #### L 300.4310, L500.2500, L300.3900, L100.0100 ####[facility] [address] [place], [address] MCHC (RBC) [Mass/Vol] 33.9 g/dL Normal 32-36 [facility] Comment on above: Performed By: #### L 300.4310, L500.2500, L300.3900, L100.0100 ####[facility] [address] [place], [address] MCV (RBC) [Entitic vol] 96.3 fL Normal 81-99 [facility] Comment on above: Performed By: #### L 300.4310, L500.2500, L300.3900, L100.0100 ####[facility] [address] [place], [address] Monocytes/100 WBC (Bld) 6.2 % Normal 0-10 [facility] Comment on above: Performed By: #### L 300.4310, L500.2500, L300.3900, L100.0100 ####[facility] [address] [place], [address] Neutrophils/100 WBC (Bld) 69.2 % Normal 47-70 [facility] Comment on above: Performed By: #### L 300.4310, L500.2500, L300.3900, L100.0100 ####[facility] [address] [place], [address] Nucleated RBC (Bld) [#/Vol] 0 10*3/uL Normal 0-5 [facility] Comment on above: Performed By: #### L 300.4310, L500.2500, L300.3900, L100.0100 ####[facility] [address] [place], [address] Platelet mean volume (Bld) [Entitic vol] 9.1 fL Normal 6.2-12.0 [facility] Comment on above: Performed By: #### L 300.4310, L500.2500, L300.3900, L100.0100 ####[facility] [address] [place], [address] Platelets (Bld) [#/Vol] 181 10*3/uL Normal 150-450 [facility] Comment on above: Performed By: #### L 300.4310, L500.2500, L300.3900, L100.0100 ####[facility] [address] [place], [address] RBC (Bld) [#/Vol] 3.28 10*6/uL Low 4.2-5.4 [facility] Comment on above: Performed By: #### L 300.4310, L500.2500, L300.3900, L100.0100 ####[facility] [address] [place], [address] RDW SD 49.4 fl High 35.1-43.9 [facility] Comment on above: Performed By: #### L 300.4310, L500.2500, L300.3900, L100.0100 ####[facility] [address] [place], [address] WBC (Bld) [#/Vol] 7.6 10*3/uL Normal 4.4-11.0 [facility] Comment on above: Performed By: #### L 300.4310, L500.2500, L300.3900, L100.0100 ####[facility] [address] [place], [address] Carbon dioxide, total [Moles /volume] in Central venous bloodOrdered By: Jacobo Moya on 07-25-2024 CO2 [Moles/Vol] 26.5 mmol/L 21.0-32.0 [facility] Chest 1 View (Portable)on Chest 1 View (Portable) Normal [facility] Chloride assayOrdered By: Timi Moya on 07-25-2024 Chloride [Moles/Vol] 98 mmol/L 98-108 [facility] Echo Completeon 07-25-2024 Echo Complete Normal [facility] Emergency Department Summary on 07-25-2024 Emergency Department Summary Normal [facility] Eosinophil percentageOrdered By: Jacobo Moya on 07-25-2024 Eosinophils/100 WBC (Bld) 0.9 % 0-5 [facility] Erythrocyte distribution wid th ratioOrdered By: Jacobo Moya on 07-25-2024 Erythrocyte distribution width (RBC) [Ratio] 14.1 % 11.6-14.6 [facility] Erythrocyte distribution wid th standard deviationOrdered By: Jacobo Moya on 07-25-2024 Erythrocyte distribution width (RBC) [Ratio] 49.4 fl High 35.1-43.9 [facility] Femur Min 2 Viewson 07-26-19 25 Femur Min 2 Views Normal [facility] Glomerular filtration rate ( GFR) estimation/1.73 sq m using serum, plasma, or whole bOrdered By: Jacobo Moya on 07-25-2024 GFR/1.73 sq M.predicted among non-blacks MDRD (S/P/Bld) [Vol rate/Area] 60 mL/min/{1.73_m2} >60 [facility] Comment on above: mL/min/1.73m2 CKD-EP I Creatinine Equation (2020) H AND P Exam - [facility] 07-25-2024 H&P Exam - Hospitalist Normal [facility] HIP, UNI W/ Pelvis 2-3 Views on 07-25-2024 HIP, UNI W/ Pelvis 2-3 Views Normal [facility] Hematocrit Auto (Bld) [Volum e fraction]Ordered By: Jacobo Moya on 07-25-2024 Hematocrit (Bld) [Volume fraction] 31.6 % Low 37-47 [facility] Hemoglobin measurementOrdere d By: Jacobo Moya on 07-25-2024 Hemoglobin (Bld) [Mass/Vol] 10.7 g/dL Low 12.0-15.0 [facility] Immature granulocytes/100 WB C Auto (Bld)Ordered By: Jacobo Moya on 07-25-2024 Immature granulocytes/100 WBC (Bld) 0.400 % 0.0-0.9 [facility] Comment on above: IG% - Immature Granu locytes (promyelocytes, myelocytes and metamyelocytes) > 1% indicates that a LEFT SHIFT is Present. International normalized rat io (INR) calculationOrdered By: Jacobo Moya on 07-25-2024 INR Coag (Bld) [Relative time] 1.0 {INR} [facility] Ketones Test strip Ql (U)Ord ered By: Jacobo Moya on 07-25-2024 Ketones Ql (U) Negative Negative [facility] L501.4021on 07-25-2024 Trop T High Sen 24 ng/L High <=14 [facility] Comment on above: Performed By: #### L 501.4021 ####[facility] [address] [place], [place], [address] L503.7505on 07-25-2024 Natriuretic peptide B (Bld) [Mass/Vol] 538 pg/mL Normal <=1800 [facility] Comment on above: Result Comment: Hear t Failure Unlikely: < 300 pg/mLHeart Failure Likely< 50 Years: > 450 pg/mL50-75 Years: > 900 pg/mL>75 Years: > 1800 pg/mL Performed By: #### L 503.7505 ####[facility] [address] [place], [place], [address] MCV (mean corpuscular volume ) determinationOrdered By: Jacobo Moya on 07-25-2024 MCV (RBC) [Entitic vol] 96.3 fL 81-99 [facility] Mean corpuscular hemoglobin (MCH) determinationOrdered By: Jacobo Moya on 07-25-2024 MCH (RBC) [Entitic mass] 32.6 pg High 27.0-32.0 [facility] Mean corpuscular hemoglobin concentration (MCHC) determinationOrdered By: Jacobo Moya on 07-25-2024 MCHC (RBC) [Mass/Vol] 33.9 g/dL 32-36 [facility] Mean platelet volume determi nationOrdered By: Jacobo Moya on 07-25-2024 Platelet mean volume (Bld) [Entitic vol] 9.1 fL 6.2-12.0 [facility] Microscopic analysis of urin e for red blood cells (RBC)Ordered By: Jacobo Moya on 07-25-2024 Microscopic analysis of urine for red blood cells (RBC) 0-5 SEEN /hpf 0-5 [facility] Monocyte percentageOrdered B y: Jacobo Moya on 07-25-2024 Monocytes/100 WBC (Bld) 6.2 % 0-10 [facility] Mucus LM Ql (Urine sed)Order ed By: Jacobo Moya on 07-25-2024 Mucus Ql (Urine sed) 0 SEEN /hpf [facility] Natriuretic peptide.B prohor ana N-Terminal [Mass/volume] in Serum or PlasmaOrdered By: Hayden Diaz on 07-25-2024 Natriuretic peptide.B prohormone N-Terminal [Mass/Vol] 538 pg/mL <1800 [facility] Comment on above: Heart Failure Unlike ly: < 300 pg/mLHeart Failure Likely< 50 Years: > 450 pg/mL50-75 Years: > 900 pg/mL>75 Years: > 1800 pg/mL Neutrophil percentageOrdered By: Jacobo Moya on 07-25-2024 Neutrophils/100 WBC (Bld) 69.2 % 47-70 [facility] Nitrite Test strip Ql (U)Ord ered By: Jacobo Moya on 07-25-2024 Nitrite Ql (U) Negative Negative [facility] Nucleated red blood cell per centageOrdered By: Jacobo Moya on 07-25-2024 Nucleated RBC/100 WBC (Bld) [Ratio] 0 % 0-5 [facility] Partial Thromboplast Timeon 07-25-2024 aPTT Coag (Bld) [Time] 27.1 s Normal 24.1-36.2 [facility] Comment on above: Performed By: #### L 300.4310, L500.2500, L300.3900, L100.0100 ####[facility] [address] [place], [place], [address] Platelet countOrdered By: Timi Moya on 07-25-2024 Platelets (Bld) [#/Vol] 181 10*3/uL 150-450 [facility] Potassium measurement (mass/ volume)Ordered By: Jacobo Moya on 07-25-2024 Potassium (Unsp spec) [Mass/Vol] 5.0 mmol/L 3.3-5.1 [facility] Comment on above: Hemolysis present, R esults could be affected. Protein Test strip Ql (U)Ord ered By: Jacobo Moya on 07-25-2024 Protein Ql (U) 30 mg/dl High Negative [facility] Prothrombin Time w/INRon INR Coag (PPP) [Relative time] 1.0 {INR} Normal [facility] Comment on above: Performed By: #### L 300.4310, L500.2500, L300.3900, L100.0100 ####[facility] [address] [place], [address] PT Coag (PPP) [Time] 13.0 s Normal 11.7-14.9 [facility] Comment on above: Performed By: #### L 300.4310, L500.2500, L300.3900, L100.0100 ####[facility] [address] [place], [address] Prothrombin timeOrdered By: Jacobo Moya on 07-25-2024 PT Coag (PPP) [Time] 13.0 s 11.7-14.9 [facility] [facility] Auto (Bld) [#/Vol]Ordere d By: Jacobo Moya on 07-25-2024 RBC (Bld) [#/Vol] 3.28 10*6/uL Low 4.2-5.4 [facility] Serum creatinine measurement (mass/volume)Ordered By: Jacobo Moya on 07-25-2024 Creatinine [Mass/Vol] 0.92 mg/dL 0.70-1.20 [facility] Serum glucose measurement (m ass/volume)Ordered By: Jacobo Moya on 07-25-2024 Glucose [Mass/Vol] 126 mg/dL High 70-99 [facility] Serum or plasma calcium светлана urement (mass/volume)Ordered By: Jacobo Moya on 07-25-2024 Calcium [Mass/Vol] 8.8 mg/dL 7.6-11.0 [facility] Serum or plasma urea nitroge n measurement (mass/volume)Ordered By: Jacobo Moya on 07-25-2024 Urea nitrogen [Mass/Vol] 13 mg/dL 4-19 [facility] Sodium levelOrdered By: Jacobo Moya on 07-25-2024 Sodium [Moles/Vol] 134 mmol/L 133-145 [facility] Squamous epithelial cells de tection in urine sediment by light microscopyOrdered By: Jacobo Moya on 07-25-2024 Epithelial cells.squamous LM Ql (Urine sed) 0-5 SEEN /hpf 5-10 [facility] Transitional cells detection in urine sediment by light microscopyOrdered By: Jacobo Moya on 07-25-2024 Transitional cells LM Ql (Urine sed) 0-5 SEEN /hpf 0-5 [facility] Troponin T.cardiac [Mass/vol ume] in Serum or Plasma by High sensitivity methodOrdered By: Hayden Diaz on 07-25-2024 Troponin T.cardiac High sensitivity method [Mass/Vol] 24 ng/L High <14 [facility] Urinalysis, Completeon 07-25 EPI,SQUAMOUS 0-5 SEEN Normal 5-10 [facility] Comment on above: Order Comment: CLEAN CATCH Performed By: #### L 400.0001 ####[facility] [address] [place] [address] EPI,TRANSITION 0-5 SEEN Normal 0-5 [facility] Comment on above: Order Comment: CLEAN CATCH Performed By: #### L 400.0001 ####[facility] [address] [facility] [address] RBC 0-5 SEEN Normal 0-5 [facility] Comment on above: Order Comment: CLEAN CATCH Performed By: #### L 400.0001 ####[facility] [address] [facility] [address] WBC 0-5 SEEN Normal 0-5 [facility] Comment on above: Order Comment: CLEAN CATCH Performed By: #### L 400.0001 ####[facility] [address] [place], [address] BACTERIA 0 SEEN Normal None Seen [facility] Comment on above: Order Comment: CLEAN CATCH Performed By: #### L 400.0001 ####[facility] [address] [place] [id number] Mucus Ql (Urine sed) 0 SEEN Normal [facility] Comment on above: Order Comment: CLEAN CATCH Performed By: #### L 400.0001 ####[facility] [address] [place], [place], [id number] Urine clarityOrdered By: Geovanna Moya on 07-25-2024 Clarity (U) Clear Clear [facility] Urine color determinationOrd ered By: Jacobo Moya on 07-25-2024 Color (U) Straw Yellow [facility] Urine glucose detectionOrder ed By: Jacobo Moya on 07-25-2024 Glucose Ql (U) Normal mg/dl Normal [facility] Urine leukocyte esterase det ection by dipstickOrdered By: Jacobo Moya on 07-25-2024 Leukocyte esterase Test strip Ql (U) Negative Negative [facility] Urine pHOrdered By: Jacobo dunham on 07-25-2024 pH (U) 8.0 [pH] 5.0 - 8.0 [facility] Urine sediment bacteria coun t by microscopy (number/high power field)Ordered By: Jacobo Moya on 07-25-2024 Bacteria LM.HPF (Urine sed) [#/Area] 0 /[HPF] None Seen [facility] Urine specific gravity measu rementOrdered By: Jacobo Moya on 07-25-2024 Specific gravity (U) [Rel density] 1.010 1.002-1.03 0 [facility] Urine urobilinogen measureme ntOrdered By: Jacobo Moya on 07-25-2024 Urobilinogen Ql (U) Normal mg/dl Normal [facility] White blood cell (WBC) count Ordered By: Jacobo Moya on 07-25-2024 WBC (Bld) [#/Vol] 7.6 10*3/uL 4.4-11.0 [facility] White blood cell countOrdere d By: Jacobo Moya on 07-25-2024 White blood cell count 0-5 SEEN /hpf 0-5 [facility] Anion gap in Serum or Plasma Ordered By: Kam Ocampo on 04-14-2024 Anion gap [Moles/Vol] 10 mmol/L 5-15 [facility] BUN/creatinine ratioOrdered By: Kam Ocampo on 04-14-2024 Urea nitrogen/Creatinine [Mass ratio] 12.4 mg/mg 10-20 [facility] Bilirubin, totalOrdered By: Kam Ocampo on 04-14-2024 Bilirubin [Mass/Vol] 0.38 mg/dL 0.00-1.30 [facility] CBC-Complete Blood Cnt No Di ffon 04-14-2024 Erythrocyte distribution width (RBC) [Ratio] 13.7 % Normal 11.6-14.6 [facility] Comment on above: Order Comment: 301.2 Performed By: #### L 501.080 #### [facility] [address] [place], [address] Order Comment: 301.2 Performed By: #### L 500.4050, L100.0500 ####[facility] [address] [place], [address] Hematocrit (Bld) [Volume fraction] 30.3 % Low 37-47 [facility] Comment on above: Order Comment: 301.2 Performed By: #### L 501.080 #### [facility] [address] [place], [address] Order Comment: 301.2 Performed By: #### L 500.4050, L100.0500 ####[facility] [address] [place], [address] Hemoglobin (Bld) [Mass/Vol] 10.2 g/dL Low 12.0-15.0 [facility] Comment on above: Order Comment: 301.2 Performed By: #### L 501.080 #### [facility] [address] [place], [address] Order Comment: 301.2 Performed By: #### L 500.4050, L100.0500 ####[facility] [address] [place], [address] MCH (RBC) [Entitic mass] 32.4 pg High 27.0-32.0 [facility] Comment on above: Order Comment: 301.2 Performed By: #### L 501.080 #### [facility] [address] [place], [address] Order Comment: 301.2 Performed By: #### L 500.4050, L100.0500 ####[facility] [address] [place], [address] MCHC (RBC) [Mass/Vol] 33.7 g/dL Normal 32-36 [facility] Comment on above: Order Comment: 301.2 Performed By: #### L 501.080 #### [facility] [address] [place], [address] Order Comment: 301.2 Performed By: #### L 500.4050, L100.0500 ####[facility] [address] [place], [address] MCV (RBC) [Entitic vol] 96.2 fL Normal 81-99 [facility] Comment on above: Order Comment: 301.2 Performed By: #### L 501.080 #### [facility] [address] [place], [address] Order Comment: 301.2 Performed By: #### L 500.4050, L100.0500 ####[facility] [address] [place], [address] Platelet mean volume (Bld) [Entitic vol] 9.3 fL Normal 6.2-12.0 [facility] Comment on above: Order Comment: 301.2 Performed By: #### L 501.080 #### [facility] [address] [place], [address] Order Comment: 301.2 Performed By: #### L 500.4050, L100.0500 ####[facility] [address] [place], [address] Platelets (Bld) [#/Vol] 170 10*3/uL Normal 150-450 [facility] Comment on above: Order Comment: 301.2 Performed By: #### L 501.080 #### [facility] [address] [place], [address] Order Comment: 301.2 Performed By: #### L 500.4050, L100.0500 ####[facility] [address] [place], [address] RBC (Bld) [#/Vol] 3.15 10*6/uL Low 4.2-5.4 [facility] Comment on above: Order Comment: 301.2 Performed By: #### L 501.080 #### [facility] [address] [place], [address] Order Comment: 301.2 Performed By: #### L 500.4050, L100.0500 ####[facility] [address] [place], [address] RDW SD 48.8 fl High 35.1-43.9 [facility] Comment on above: Order Comment: 301.2 Performed By: #### L 501.080 #### [facility] [address] [place], [address] Order Comment: 301.2 Performed By: #### L 500.4050, L100.0500 ####[facility] [address] [place], [address] WBC (Bld) [#/Vol] 4.5 10*3/uL Normal 4.4-11.0 [facility] Comment on above: Order Comment: 301.2 Performed By: #### L 501.080 #### [facility] [address] [place], [address] Order Comment: 301.2 Performed By: #### L 500.4050, L100.0500 ####[facility] [address] [place], [address] Carbon dioxide, total [Moles /volume] in Central venous bloodOrdered By: Kam Ocampo on 04-14-2024 CO2 [Moles/Vol] 24.5 mmol/L 21.0-32.0 [facility] Chloride assayOrdered By: Dugan on 04-14-2024 Chloride [Moles/Vol] 102 mmol/L 98-108 [facility] Comprehensive Metabolic Prof ilon 04-14-2024 Albumin [Mass/Vol] 3.2 g/dL Low 3.4-4.8 [facility] Comment on above: Order Comment: 301.2 Performed By: #### L 300.3900, L100.0100, L500.2500 #### [facility] [address] [place], [address] Order Comment: 301.2 Performed By: #### L 500.4050, L100.0500 ####[facility] [address] [place], [address] Albumin/Globulin [Mass ratio] 1.2 {ratio} Normal 0.9-2.4 [facility] Comment on above: Order Comment: 301.2 Performed By: #### L 300.3900, L100.0100, L500.2500 #### [facility] [address] [place], [address] Order Comment: 301.2 Performed By: #### L 500.4050, L100.0500 ####[facility] [address] [place], [address] ALK PHOS 53 U/L Normal 35-104 [facility] Comment on above: Order Comment: 301.2 Performed By: #### L 300.3900, L100.0100, L500.2500 #### [facility] [address] [place], [address] Order Comment: 301.2 Performed By: #### L 500.4050, L100.0500 ####[facility] [address] [place], [address] ALT [Catalytic activity/Vol] 14 U/L Normal <=34 [facility] Comment on above: Order Comment: 301.2 Performed By: #### L 300.3900, L100.0100, L500.2500 #### [facility] [address] [place], [address] Order Comment: 301.2 Performed By: #### L 500.4050, L100.0500 ####[facility] [address] [place], [address] AST [Catalytic activity/Vol] 21 U/L Normal <=31 [facility] Comment on above: Order Comment: 301.2 Performed By: #### L 300.3900, L100.0100, L500.2500 #### [facility] [address] [place], [address] Order Comment: 301.2 Performed By: #### L 500.4050, L100.0500 ####[facility] [address] [place], [address] Bilirubin [Mass/Vol] 0.38 mg/dL Normal 0.00-1.30 [facility] Comment on above: Order Comment: 301.2 Performed By: #### L 300.3900, L100.0100, L500.2500 #### [facility] [address] [place], [address] Order Comment: 301.2 Performed By: #### L 500.4050, L100.0500 ####[facility] [address] [place], [address] BUN/CRE 12.4 RATIO Normal 10-20 [facility] Comment on above: Order Comment: 301.2 Performed By: #### L 300.3900, L100.0100, L500.2500 #### [facility] [address] [place], [address] Order Comment: 301.2 Performed By: #### L 500.4050, L100.0500 ####[facility] [address] [place], [address] Calcium [Mass/Vol] 9.0 mg/dL Normal 7.6-11.0 [facility] Comment on above: Order Comment: 301.2 Performed By: #### L 300.3900, L100.0100, L500.2500 #### [facility] [address] [place], [address] Order Comment: 301.2 Performed By: #### L 500.4050, L100.0500 ####[facility] [address] [place], [address] Chloride [Moles/Vol] 102 mmol/L Normal 98-108 [facility] Comment on above: Order Comment: 301.2 Performed By: #### L 300.3900, L100.0100, L500.2500 #### [facility] [address] [place], [address] Order Comment: 301.2 Performed By: #### L 500.4050, L100.0500 ####[facility] [address] [place], [address] CO2 [Moles/Vol] 24.5 mmol/L Normal 21.0-32.0 [facility] Comment on above: Order Comment: 301.2 Performed By: #### L 300.3900, L100.0100, L500.2500 #### [facility] [address] [place], [address] Order Comment: 301.2 Performed By: #### L 500.4050, L100.0500 ####[facility] [address] [place], [address] Creatinine [Mass/Vol] 0.90 mg/dL Normal 0.70-1.20 [facility] Comment on above: Order Comment: 301.2 Performed By: #### L 300.3900, L100.0100, L500.2500 #### [facility] [address] [place], [address] Order Comment: 301.2 Performed By: #### L 500.4050, L100.0500 ####[facility] [address] [place], [address] GAP 10 Normal 5-15 [facility] Comment on above: Order Comment: 301.2 Performed By: #### L 300.3900, L100.0100, L500.2500 #### [facility] [address] [place], [address] Order Comment: 301.2 Performed By: #### L 500.4050, L100.0500 ####[facility] [address] [place], [address] GFR/1.73 sq M.predicted among non-blacks MDRD (S/P/Bld) [Vol rate/Area] 61 mL/min/{1.73_m2} Normal >60 [facility] Comment on above: Order Comment: 301.2 Result Comment: mL/m in/1.73m2 CKD-EPI Creatinine Equation (2020) Performed By: #### L 300.3900, L100.0100, L500.2500 #### [facility] [address] [place], [address] Order Comment: 301.2 Result Comment: mL/m in/1.73m2 CKD-EPI Creatinine Equation (2020) Performed By: #### L 500.4050, L100.0500 ####[facility] [address] [place], [address] Globulin (S) [Mass/Vol] 2.7 g/dL Normal 2.2-4.2 [facility] Comment on above: Order Comment: 301.2 Performed By: #### L 300.3900, L100.0100, L500.2500 #### [facility] [address] [place], [address] Order Comment: 301.2 Performed By: #### L 500.4050, L100.0500 ####[facility] [address] [place], [address] Glucose [Mass/Vol] 80 mg/dL Normal 70-99 [facility] Comment on above: Order Comment: 301.2 Performed By: #### L 300.3900, L100.0100, L500.2500 #### [facility] [address] [place], [address] Order Comment: 301.2 Performed By: #### L 500.4050, L100.0500 ####[facility] [address] [place], [address] Potassium [Moles/Vol] 4.3 mmol/L Normal 3.3-5.1 [facility] Comment on above: Order Comment: 301.2 Performed By: #### L 300.3900, L100.0100, L500.2500 #### [facility] [address] [place], [address] Order Comment: 301.2 Performed By: #### L 500.4050, L100.0500 ####[facility] [address] [place], [address] Sodium [Moles/Vol] 137 mmol/L Normal 133-145 [facility] Comment on above: Order Comment: 301.2 Performed By: #### L 300.3900, L100.0100, L500.2500 #### [facility] [address] [place], [address] Order Comment: 301.2 Performed By: #### L 500.4050, L100.0500 ####[facility] [address] [place], [address] T PROT 5.9 g/dL Normal 5.9-8.4 [facility] Comment on above: Order Comment: 301.2 Performed By: #### L 300.3900, L100.0100, L500.2500 #### [facility] [address] [place], [address] Order Comment: 301.2 Performed By: #### L 500.4050, L100.0500 ####[facility] [address] [place], [address] Urea nitrogen [Mass/Vol] 11 mg/dL Normal 4-19 [facility] Comment on above: Order Comment: 301.2 Performed By: #### L 300.3900, L100.0100, L500.2500 #### [facility] [address] [place], [address] Order Comment: 301.2 Performed By: #### L 500.4050, L100.0500 ####[facility] [address] [place], [address] Erythrocyte distribution wid th (RBC) [Ratio]Ordered By: Kam Ocampo on 04-14-2024 Erythrocyte distribution width (RBC) [Entitic vol] 48.8 fL High 35.1-43.9 [facility] Erythrocyte distribution wid th ratioOrdered By: Kam Ocampo on 04-14-2024 Erythrocyte distribution width (RBC) [Ratio] 13.7 % 11.6-14.6 [facility] Erythrocyte distribution wid th standard deviationOrdered By: Kam Ocampo on 04-14-2024 Erythrocyte distribution width (RBC) [Ratio] 48.8 fl High 35.1-43.9 [facility] GFR/1.73 sq M.predicted leif g non-blacks MDRD (S/P/Bld) [Vol rate/Area]Ordered By: Kam Ocampo on 04-14-2024 Estimated GFR (MDRD) Non-Af Amer 61 >60 [facility] Comment on above: mL/min/1.73m2 CKD-EP I Creatinine Equation (2020) Glomerular filtration rate ( GFR) estimation/1.73 sq m using serum, plasma, or whole bOrdered By: Kam Ocampo on 04-14-2024 GFR/1.73 sq M.predicted among non-blacks MDRD (S/P/Bld) [Vol rate/Area] 61 mL/min/{1.73_m2} >60 [facility] Comment on above: mL/min/1.73m2 CKD-EP I Creatinine Equation (2020) Hematocrit Auto (Bld) [Volum e fraction]Ordered By: Kam Ocampo on 04-14-2024 Hematocrit (Bld) [Volume fraction] 30.3 % Low 37-47 [facility] Hemoglobin measurementOrdere d By: Kam Ocampo on 04-14-2024 Hemoglobin (Bld) [Mass/Vol] 10.2 g/dL Low 12.0-15.0 [facility] Laboratory - Chemistry and C hemistry - challengeOrdered By: Kam Ocampo on 04-14-2024 AST [Catalytic activity/Vol] 21 U/L <32 [facility] MCV (mean corpuscular volume ) determinationOrdered By: Kam Ocampo on 04-14-2024 MCV (RBC) [Entitic vol] 96.2 fL 81-99 [facility] Mean corpuscular hemoglobin (MCH) determinationOrdered By: Kam Ocampo on 04-14-2024 MCH (RBC) [Entitic mass] 32.4 pg High 27.0-32.0 [facility] Mean corpuscular hemoglobin concentration (MCHC) determinationOrdered By: Kam Ocampo on 04-14-2024 MCHC (RBC) [Mass/Vol] 33.7 g/dL 32-36 [facility] Mean platelet volume determi nationOrdered By: Kam Ocampo on 04-14-2024 Platelet mean volume (Bld) [Entitic vol] 9.3 fL 6.2-12.0 [facility] Platelet countOrdered By: Dugan on 04-14-2024 Platelets (Bld) [#/Vol] 170 10*3/uL 150-450 [facility] Potassium (Unsp spec) [Mass/ Vol]Ordered By: Kam Ocampo on 04-14-2024 Potassium [Moles/Vol] 4.3 mmol/L 3.3-5.1 [facility] Potassium measurement (mass/ volume)Ordered By: Kam Ocampo on 04-14-2024 Potassium (Unsp spec) [Mass/Vol] 4.3 mmol/L 3.3-5.1 [facility] RBC Auto (Bld) [#/Vol]Ordere d By: Kam Ocampo on 04-14-2024 RBC (Bld) [#/Vol] 3.15 10*6/uL Low 4.2-5.4 [facility] Serum creatinine measurement (mass/volume)Ordered By: Kam Ocampo on 04-14-2024 Creatinine [Mass/Vol] 0.90 mg/dL 0.70-1.20 [facility] Serum globulin measurementOr dered By: Kam Ocampo on 04-14-2024 Globulin (S) [Mass/Vol] 2.7 g/dL 2.2-4.2 [facility] Serum glucose measurement (m ass/volume)Ordered By: Kam Ocampo on 04-14-2024 Glucose [Mass/Vol] 80 mg/dL 70-99 [facility] Serum or plasma alanine browne otransferase (ALT) measurementOrdered By: Kam Ocampo on 04-14-2024 ALT [Catalytic activity/Vol] 14 U/L <35 [facility] Serum or plasma albumin светлана urement (mass/volume)Ordered By: Kam Ocampo on 04-14-2024 Albumin [Mass/Vol] 3.2 g/dL Low 3.4-4.8 [facility] Serum or plasma albumin/glob ulin mass ratioOrdered By: Kam Ocampo on 04-14-2024 Albumin/Globulin [Mass ratio] 1.2 {ratio} 0.9-2.4 [facility] Serum or plasma alkaline noy sphatase measurementOrdered By: Kam Ocampo on 04-14-2024 ALP [Catalytic activity/Vol] 53 U/L 35-104 [facility] Serum or plasma calcium светлана urement (mass/volume)Ordered By: Kam Ocampo on 04-14-2024 Calcium [Mass/Vol] 9.0 mg/dL 7.6-11.0 [facility] Serum or plasma urea nitroge n measurement (mass/volume)Ordered By: Kam Ocampo on 04-14-2024 Urea nitrogen [Mass/Vol] 11 mg/dL 4-19 [facility] Sodium levelOrdered By: Kam Ocampo on 04-14-2024 Sodium [Moles/Vol] 137 mmol/L 133-145 [facility] Total proteinOrdered By: Aline Ocampo on 04-14-2024 Protein [Mass/Vol] 5.9 g/dL 5.9-8.4 [facility] White blood cell (WBC) count Ordered By: Kam Ocampo on 04-14-2024 WBC (Bld) [#/Vol] 4.5 10*3/uL 4.4-11.0 [facility] Absolute neutrophil countOrd ered By: Kam Ocampo on 02-09-2024 Neutrophils (Bld) [#/Vol] 3.2 10*3/uL 2.0-7.7 [facility] Basic Metabolic Profile (BMP )on 02-09-2024 BUN/CRE 18.4 RATIO Normal 10-20 [facility] Comment on above: Order Comment: 301.2 Performed By: #### L 500.2500, L100.0500 #### [facility] [address] [facility] [place], [address] Order Comment: 301.2 Performed By: #### L 500.2500, L100.0100 ####[facility] [address] [place], [address] CA,Total 9.0 mg/dL Normal 8.5-10.1 [facility] Comment on above: Order Comment: 301.2 Performed By: #### L 500.2500, L100.0500 #### [facility] [address] [place], [address] Order Comment: 301.2 Performed By: #### L 500.2500, L100.0100 ####[facility] [address] [place], [address] Chloride [Moles/Vol] 105 mmol/L Normal 98-107 [facility] Comment on above: Order Comment: 301.2 Performed By: #### L 500.2500, L100.0500 #### [facility] [address] [place], [address] Order Comment: 301.2 Performed By: #### L 500.2500, L100.0100 ####[facility] [address] [place], [address] CO2 [Moles/Vol] 28.0 mmol/L Normal 21.0-32.0 [facility] Comment on above: Order Comment: 301.2 Performed By: #### L 500.2500, L100.0500 #### [facility] [address] [place], [address] Order Comment: 301.2 Performed By: #### L 500.2500, L100.0100 ####[facility] [address] [place], [address] Creatinine [Mass/Vol] 0.98 mg/dL Normal 0.55-1.02 [facility] Comment on above: Order Comment: 301.2 Result Comment: The validity of the calculated GFR GFRAA in patients over 70 years has not been determined. Clinical correlation is essential. Performed By: #### L 500.2500, L100.0500 #### [facility] [address] [place], [address] Order Comment: 301.2 Result Comment: The validity of the calculated GFR GFRAA in patients over70 years has not been determined. Clinical correlation isessential. Performed By: #### L 500.2500, L100.0100 ####[facility] [address] [place], [address] EST GFR - AA 69 mL/min Normal >60 [facility] Comment on above: Order Comment: 301.2 Result Comment: Afri can Norwegian GFR Calc Performed By: #### L 500.2500, L100.0500 #### [facility] [address] [place], [address] Order Comment: 301.2 Result Comment: Afri can Norwegian GFR Calc Performed By: #### L 500.2500, L100.0100 ####[facility] [address] [place], [address] GAP 5 Normal 5-15 [facility] Comment on above: Order Comment: 301.2 Performed By: #### L 500.2500, L100.0500 #### [facility] [address] [place], [address] Order Comment: 301.2 Performed By: #### L 500.2500, L100.0100 ####[facility] [address] [place], [address] GFR/1.73 sq M.predicted among non-blacks MDRD (S/P/Bld) [Vol rate/Area] 57 mL/min/{1.73_m2} Low >60 [facility] Comment on above: Order Comment: 301.2 Result Comment: Non- GFR Calc Performed By: #### L 500.2500, L100.0500 #### [facility] [address] [place], [address] Order Comment: 301.2 Result Comment: Non- GFR Calc Performed By: #### L 500.2500, L100.0100 ####[facility] [address] [place], [address] Glucose [Mass/Vol] 88 mg/dL Normal 74-106 [facility] Comment on above: Order Comment: 301.2 Performed By: #### L 500.2500, L100.0500 #### [facility] [address] [place], [address] Order Comment: 301.2 Performed By: #### L 500.2500, L100.0100 ####[facility] [address] [place], [address] Potassium [Moles/Vol] 4.2 mmol/L Normal 3.5-5.1 [facility] Comment on above: Order Comment: 301.2 Performed By: #### L 500.2500, L100.0500 #### [facility] [address] [place], [address] Order Comment: 301.2 Performed By: #### L 500.2500, L100.0100 ####[facility] [address] [place], [address] Sodium [Moles/Vol] 138 mmol/L Normal 136-145 [facility] Comment on above: Order Comment: 301.2 Performed By: #### L 500.2500, L100.0500 #### [facility] [address] [place], [address] Order Comment: 301.2 Performed By: #### L 500.2500, L100.0100 ####[facility] [address] [place], [address] Urea nitrogen [Mass/Vol] 18 mg/dL Normal 7-18 [facility] Comment on above: Order Comment: 301.2 Performed By: #### L 500.2500, L100.0500 #### [facility] [address] [place], [address] Order Comment: 301.2 Performed By: #### L 500.2500, L100.0100 ####[facility] [address] [place], [address] Basophil percentageOrdered B y: Kam Ocampo on 02-09-2024 Basophils/100 WBC (Bld) 0.2 % 0-1 [facility] Blood urea nitrogen (BUN)/cr eatinine ratioOrdered By: Kam Ocampo on 02-09-2024 Urea nitrogen/Creatinine [Mass ratio] 18.4 mg/mg - [facility] CBC W/Diff, Automatedon - Absolute Lymph 1.89 X10 3/uL Normal 0.83-4.51 [facility] Comment on above: Order Comment: 301.2 Performed By: #### L 500.2500, L100.0500 #### [facility] [address] [place], [address] Order Comment: 301.2 Performed By: #### L 500.2500, L100.0100 ####[facility] [address] [place], [address] Absolute Neut 3.2 X10 3/uL Normal 2.0-7.7 [facility] Comment on above: Order Comment: 301.2 Performed By: #### L 500.2500, L100.0500 #### [facility] [address] [place], [address] Order Comment: 301.2 Performed By: #### L 500.2500, L100.0100 ####[facility] [address] [place], [address] Basophils/100 WBC (Bld) 0.2 % Normal 0-1 [facility] Comment on above: Order Comment: 301.2 Performed By: #### L 500.2500, L100.0500 #### [facility] [address] [place], [address] Order Comment: 301.2 Performed By: #### L 500.2500, L100.0100 ####[facility] [address] [place], [address] Eosinophils/100 WBC (Bld) 0.2 % Normal 0-5 [facility] Comment on above: Order Comment: 301.2 Performed By: #### L 500.2500, L100.0500 #### [facility] [address] [place], [address] Order Comment: 301.2 Performed By: #### L 500.2500, L100.0100 ####[facility] [address] [place], [address] Erythrocyte distribution width (RBC) [Ratio] 13.9 % Normal 11.6-14.6 [facility] Comment on above: Order Comment: 301.2 Performed By: #### L 500.2500, L100.0500 #### [facility] [address] [place], [address] Order Comment: 301.2 Performed By: #### L 500.2500, L100.0100 ####[facility] [address] [place], [address] Hematocrit (Bld) [Volume fraction] 30.0 % Low 37-47 [facility] Comment on above: Order Comment: 301.2 Performed By: #### L 500.2500, L100.0500 #### [facility] [address] [place], [address] Order Comment: 301.2 Performed By: #### L 500.2500, L100.0100 ####[facility] [address] [place], [address] Hemoglobin (Bld) [Mass/Vol] 10.0 g/dL Low 12.0-15.0 [facility] Comment on above: Order Comment: 301.2 Performed By: #### L 500.2500, L100.0500 #### [facility] [address] [place], [address] Order Comment: 301.2 Performed By: #### L 500.2500, L100.0100 ####[facility] [address] [place], [address] IG% 0.400 Normal 0.0-0.9 [facility] Comment on above: Order Comment: 301.2 Result Comment: IG% - Immature Granulocytes (promyelocytes, myelocytes and metamyelocytes) > 1% indicates that a LEFT SHIFT is Present. Performed By: #### L 500.2500, L100.0500 #### [facility] [address] [place], [address] Order Comment: 301.2 Result Comment: IG% - Immature Granulocytes (promyelocytes, myelocytes andmetamyelocytes) > 1% indicates that a LEFT SHIFT is Present. Performed By: #### L 500.2500, L100.0100 ####[facility] [address] [place], [address] Lymphocytes/100 WBC (Bld) 33.9 % Normal 19-41 [facility] Comment on above: Order Comment: 301.2 Performed By: #### L 500.2500, L100.0500 #### [facility] [address] [place], [address] Order Comment: 301.2 Performed By: #### L 500.2500, L100.0100 ####[facility] [address] [place], [address] MCH (RBC) [Entitic mass] 32.3 pg High 27.0-32.0 [facility] Comment on above: Order Comment: 301.2 Performed By: #### L 500.2500, L100.0500 #### [facility] [address] [place], [address] Order Comment: 301.2 Performed By: #### L 500.2500, L100.0100 ####[facility] [address] [place], [address] MCHC (RBC) [Mass/Vol] 33.3 g/dL Normal 32-36 [facility] Comment on above: Order Comment: 301.2 Performed By: #### L 500.2500, L100.0500 #### [facility] [address] [place], [address] Order Comment: 301.2 Performed By: #### L 500.2500, L100.0100 ####[facility] [address] [place], [address] MCV (RBC) [Entitic vol] 96.8 fL Normal 81-99 [facility] Comment on above: Order Comment: 301.2 Performed By: #### L 500.2500, L100.0500 #### [facility] [address] [place], [address] Order Comment: 301.2 Performed By: #### L 500.2500, L100.0100 ####[facility] [address] [place], [address] Monocytes/100 WBC (Bld) 8.8 % Normal 0-10 [facility] Comment on above: Order Comment: 301.2 Performed By: #### L 500.2500, L100.0500 #### [facility] [address] [place], [address] Order Comment: 301.2 Performed By: #### L 500.2500, L100.0100 ####[facility] [address] [place], [address] Neutrophils/100 WBC (Bld) 56.5 % Normal 47-70 [facility] Comment on above: Order Comment: 301.2 Performed By: #### L 500.2500, L100.0500 #### [facility] [address] [place], [address] Order Comment: 301.2 Performed By: #### L 500.2500, L100.0100 ####[facility] [address] [place], [address] Nucleated RBC (Bld) [#/Vol] 0 10*3/uL Normal 0-5 [facility] Comment on above: Order Comment: 301.2 Performed By: #### L 500.2500, L100.0500 #### [facility] [address] [place], [address] Order Comment: 301.2 Performed By: #### L 500.2500, L100.0100 ####[facility] [address] [place], [address] Platelet mean volume (Bld) [Entitic vol] 9.5 fL Normal 6.2-12.0 [facility] Comment on above: Order Comment: 301.2 Performed By: #### L 500.2500, L100.0500 #### [facility] [address] [place], [address] Order Comment: 301.2 Performed By: #### L 500.2500, L100.0100 ####[facility] [address] [place], [address] Platelets (Bld) [#/Vol] 181 10*3/uL Normal 150-450 [facility] Comment on above: Order Comment: 301.2 Performed By: #### L 500.2500, L100.0500 #### [facility] [address] [place], [address] Order Comment: 301.2 Performed By: #### L 500.2500, L100.0100 ####[facility] [address] [place], [address] RBC (Bld) [#/Vol] 3.10 10*6/uL Low 4.2-5.4 [facility] Comment on above: Order Comment: 301.2 Performed By: #### L 500.2500, L100.0500 #### [facility] [address] [place], [address] Order Comment: 301.2 Performed By: #### L 500.2500, L100.0100 ####[facility] [address] [place], [address] RDW SD 48.9 fl High 35.1-43.9 [facility] Comment on above: Order Comment: 301.2 Performed By: #### L 500.2500, L100.0500 #### [facility] [address] [place], [address] Order Comment: 301.2 Performed By: #### L 500.2500, L100.0100 ####[facility] [address] [place], [address] WBC (Bld) [#/Vol] 5.6 10*3/uL Normal 4.4-11.0 [facility] Comment on above: Order Comment: 301.2 Performed By: #### L 500.2500, L100.0500 #### [facility] [address] [place], [address] Order Comment: 301.2 Performed By: #### L 500.2500, L100.0100 ####[facility] [address] [place], [address] Carbon dioxide measurementOr dered By: Kam Ocampo on 02-09-2024 CO2 [Moles/Vol] 28.0 mmol/L 21.0-32.0 [facility] Chloride measurementOrdered By: Kam Ocampo on 02-09-2024 Chloride [Moles/Vol] 105 mmol/L 98-107 [facility] Eosinophil percentageOrdered By: Kam Ocampo on 02-09-2024 Eosinophils/100 WBC (Bld) 0.2 % 0-5 [facility] Erythrocyte distribution wid th (RBC) [Ratio]Ordered By: Kam Ocampo on 02-09-2024 Erythrocyte distribution width (RBC) [Entitic vol] 48.9 fL High 35.1-43.9 [facility] Erythrocyte distribution wid th ratioOrdered By: Kam Ocampo on 02-09-2024 Erythrocyte distribution width (RBC) [Ratio] 13.9 % 11.6-14.6 [facility] Estimated glomerular filtrat ion rate (GFR) AmericanOrdered By: Kam Ocampo on 02-09-2024 Estimated GFR (MDRD) Amer 69 mL/min >60 [facility] Comment on above: GFR Calc Glomerular filtration rate ( GFR) estimationOrdered By: Kam Ocampo on 02-09-2024 Estimated GFR (MDRD) Non-Af Amer 57 mL/min Low >60 [facility] Comment on above: Non- GFR Calc Glucose measurementOrdered B y: Kam Ocampo on 02-09-2024 Glucose [Mass/Vol] 88 mg/dL 74-106 [facility] Hematocrit Auto (Bld) [Volum e fraction]Ordered By: Kam Ocampo on 02-09-2024 Hematocrit (Bld) [Volume fraction] 30.0 % Low 37-47 [facility] Hemoglobin measurementOrdere d By: Kam Ocampo on 02-09-2024 Hemoglobin (Bld) [Mass/Vol] 10.0 g/dL Low 12.0-15.0 [facility] Immature granulocytes/100 WB C Auto (Bld)Ordered By: Kam Ocampo on 02-09-2024 Immature granulocytes/100 WBC (Bld) 0.400 % 0.0-0.9 [facility] Comment on above: IG% - Immature Granu locytes (promyelocytes, myelocytes and metamyelocytes) > 1% indicates that a LEFT SHIFT is Present. Lymphocytes Auto (Unsp spec) [#/Vol]Ordered By: Kam Ocampo on 02-09-2024 Lymphocytes (Bld) [#/Vol] 1.89 10*3/uL 0.83-4.51 [facility] Lymphocytes/100 WBC Auto (Un sp spec)Ordered By: Kam Ocampo on 02-09-2024 Lymphocytes/100 WBC (Bld) 33.9 % 19-41 [facility] MCV (mean corpuscular volume ) determinationOrdered By: Kam Ocampo on 02-09-2024 MCV (RBC) [Entitic vol] 96.8 fL 81-99 [facility] Mean corpuscular hemoglobin (MCH) determinationOrdered By: Kam Ocampo on 02-09-2024 MCH (RBC) [Entitic mass] 32.3 pg High 27.0-32.0 [facility] Mean corpuscular hemoglobin concentration (MCHC) determinationOrdered By: Kam Ocampo on 02-09-2024 MCHC (RBC) [Mass/Vol] 33.3 g/dL 32-36 [facility] Mean platelet volume determi nationOrdered By: Kam Ocampo on 02-09-2024 Platelet mean volume (Bld) [Entitic vol] 9.5 fL 6.2-12.0 [facility] Monocyte percentageOrdered B y: Kam Ocampo on 02-09-2024 Monocytes/100 WBC (Bld) 8.8 % 0-10 [facility] Neutrophil percentageOrdered By: Kam Ocampo on 02-09-2024 Neutrophils/100 WBC (Bld) 56.5 % 47-70 [facility] Nucleated red blood cell per centageOrdered By: Kam Ocampo on 02-09-2024 Nucleated RBC/100 WBC (Bld) [Ratio] 0 % 0-5 [facility] Platelet countOrdered By: Dugan on 02-09-2024 Platelets (Bld) [#/Vol] 181 10*3/uL 150-450 [facility] Potassium measurementOrdered By: Kam Ocampo on 02-09-2024 Potassium [Moles/Vol] 4.2 mmol/L 3.5-5.1 [facility] RBC Auto (Bld) [#/Vol]Ordere d By: Kam Ocampo on 02-09-2024 RBC (Bld) [#/Vol] 3.10 10*6/uL Low 4.2-5.4 [facility] Serum anion gap measurementO rdered By: Kam Ocampo on 02-09-2024 Anion gap [Moles/Vol] 5 mmol/L 5-15 [facility] Serum or plasma calcium светлана urement (mass/volume)Ordered By: Kam Ocampo on 02-09-2024 Calcium [Mass/Vol] 9.0 mg/dL 8.5-10.1 [facility] Serum or plasma creatinine m easurement (mass/volume)Ordered By: Kam Ocampo on 02-09-2024 Creatinine [Mass/Vol] 0.98 mg/dL 0.55-1.02 [facility] Comment on above: The validity of the calculated GFR & GFRAA in patients over 70 years has not been determined. Clinical correlation is essential. Serum or plasma urea nitroge n measurement (mass/volume)Ordered By: Kam Ocampo on 02-09-2024 Urea nitrogen [Mass/Vol] 18 mg/dL 7-18 [facility] Sodium levelOrdered By: Kam Ocampo on 02-09-2024 Sodium [Moles/Vol] 138 mmol/L 136-145 [facility] White blood cell (WBC) count Ordered By: Kam Ocampo on 02-09-2024 WBC (Bld) [#/Vol] 5.6 10*3/uL 4.4-11.0 [facility] FLU AND RSV PANEL MOLECULARo n 02-08-2024 FLU AND RSV PANEL INFLUENZA A Negative INFLUENZA B Negative RSV PCR Negative Normal [facility] Comment on above: Performed By: #### L 500.2500, L100.0500 #### [facility] [address] [facility] [facility] [place], [place], [address] Performed By: #### M 100.640 ####[facility] [address] [place], [place], [id number] No Panel InformationOrdered By: Kam Ocampo on 02-08-2024 Influenza & RSV (PCR) [facility] Urine Cultureon 01-27-2024 URC Culture exhibits no growth. Normal [facility] Comment on above: Performed By: #### L 500.2500, L100.0500 #### [facility] [address] [place], [place], [address] Performed By: #### M 100.2200, L100.0500, L400.0001, L500.4050 ####[facility] [address] [place], [address] Albumin to globulin ratioOrd ered By: Kam Ocampo on 01-26-2024 Albumin/Globulin [Mass ratio] 0.7 {ratio} Low 0.9-2.4 [facility] Bilirubin, totalOrdered By: Kam Ocampo on 01-26-2024 Bilirubin [Mass/Vol] 0.50 mg/dL 0.20-1.00 [facility] Comment on above: For patients on eltr ombopag therapy, use of Dimension [place] TBIL is not recommended. Blood urea nitrogen (BUN)/cr eatinine ratioOrdered By: Kam Ocampo on 01-26-2024 Urea nitrogen/Creatinine [Mass ratio] 15.8 mg/mg - [facility] CBC-Complete Blood Cnt No Di ffon 01-26-2024 Erythrocyte distribution width (RBC) [Ratio] 13.5 % Normal 11.6-14.6 [facility] Comment on above: Performed By: #### L 500.2500, L100.0500 #### [facility] [address] [place], [address] Performed By: #### M 100.2200, L100.0500, L400.0001, L500.4050 ####[facility] [address] [place], [address] Hematocrit (Bld) [Volume fraction] 31.1 % Low 37-47 [facility] Comment on above: Performed By: #### L 500.2500, L100.0500 #### [facility] [address] [place], [address] Performed By: #### M 100.2200, L100.0500, L400.0001, L500.4050 ####[facility] [address] [place], [address] Hemoglobin (Bld) [Mass/Vol] 10.0 g/dL Low 12.0-15.0 [facility] Comment on above: Performed By: #### L 500.2500, L100.0500 #### [facility] [address] [place], [address] Performed By: #### M 100.2200, L100.0500, L400.0001, L500.4050 ####[facility] [address] [place], [address] MCH (RBC) [Entitic mass] 31.6 pg Normal 27.0-32.0 [facility] Comment on above: Performed By: #### L 500.2500, L100.0500 #### [facility] [address] [place], [address] Performed By: #### M 100.2200, L100.0500, L400.0001, L500.4050 ####[facility] [address] [place], [address] MCHC (RBC) [Mass/Vol] 32.2 g/dL Normal 32-36 [facility] Comment on above: Performed By: #### L 500.2500, L100.0500 #### [facility] [address] [place], [address] Performed By: #### M 100.2200, L100.0500, L400.0001, L500.4050 ####[facility] [address] [place], [address] MCV (RBC) [Entitic vol] 98.4 fL Normal 81-99 [facility] Comment on above: Performed By: #### L 500.2500, L100.0500 #### [facility] [address] [place], [address] Performed By: #### M 100.2200, L100.0500, L400.0001, L500.4050 ####[facility] [address] [place], [address] Platelet mean volume (Bld) [Entitic vol] 9.2 fL Normal 6.2-12.0 [facility] Comment on above: Performed By: #### L 500.2500, L100.0500 #### [facility] [address] [place], [address] Performed By: #### M 100.2200, L100.0500, L400.0001, L500.4050 ####[facility] [address] [place], [address] Platelets (Bld) [#/Vol] 197 10*3/uL Normal 150-450 [facility] Comment on above: Performed By: #### L 500.2500, L100.0500 #### [facility] [address] [place], [address] Performed By: #### M 100.2200, L100.0500, L400.0001, L500.4050 ####[facility] [address] [place], [address] RBC (Bld) [#/Vol] 3.16 10*6/uL Low 4.2-5.4 [facility] Comment on above: Performed By: #### L 500.2500, L100.0500 #### [facility] [address] [place], [address] Performed By: #### M 100.2200, L100.0500, L400.0001, L500.4050 ####[facility] [address] [place], [address] RDW SD 48.3 fl High 35.1-43.9 [facility] Comment on above: Performed By: #### L 500.2500, L100.0500 #### [facility] [address] [place], [address] Performed By: #### M 100.2200, L100.0500, L400.0001, L500.4050 ####[facility] [address] [place], [address] WBC (Bld) [#/Vol] 5.2 10*3/uL Normal 4.4-11.0 [facility] Comment on above: Performed By: #### L 500.2500, L100.0500 #### [facility] [address] [place], [address] Performed By: #### M 100.2200, L100.0500, L400.0001, L500.4050 ####[facility] [address] [place], [address] Carbon dioxide measurementOr dered By: Kam Ocampo on 01-26-2024 CO2 [Moles/Vol] 29.0 mmol/L 21.0-32.0 [facility] Chloride measurementOrdered By: Kam Ocampo on 01-26-2024 Chloride [Moles/Vol] 110 mmol/L High 98-107 [facility] Comprehensive Metabolic Prof ilon 01-26-2024 Albumin [Mass/Vol] 2.6 g/dL Low 3.2-5.0 [facility] Comment on above: Order Comment: 301.2 Performed By: #### L 500.2500, L100.0500 #### [facility] [address] [place], [address] Order Comment: 301.2 SC Performed By: #### M 100.2200, L100.0500, L400.0001, L500.4050 ####[facility] [address] [place], [address] Albumin/Globulin [Mass ratio] 0.7 {ratio} Low 0.9-2.4 [facility] Comment on above: Order Comment: 301.2 Performed By: #### L 500.2500, L100.0500 #### [facility] [address] [place], [address] Order Comment: 301.2 SC Performed By: #### M 100.2200, L100.0500, L400.0001, L500.4050 ####[facility] [address] [place], [address] ALK P 67 U/L Normal 45-117 [facility] Comment on above: Order Comment: 301.2 Performed By: #### L 500.2500, L100.0500 #### [facility] [address] [place], [address] Order Comment: 301.2 SC Performed By: #### M 100.2200, L100.0500, L400.0001, L500.4050 ####[facility] [address] [place], [address] ALT [Catalytic activity/Vol] 28 U/L Normal 13-56 [facility] Comment on above: Order Comment: 301.2 Performed By: #### L 500.2500, L100.0500 #### [facility] [address] [place], [address] Order Comment: 301.2 SC Performed By: #### M 100.2200, L100.0500, L400.0001, L500.4050 ####[facility] [address] [place], [address] AST [Catalytic activity/Vol] 25 U/L Normal 15-37 [facility] Comment on above: Order Comment: 301.2 Performed By: #### L 500.2500, L100.0500 #### [facility] [address] [place], [address] Order Comment: 301.2 SC Performed By: #### M 100.2200, L100.0500, L400.0001, L500.4050 ####[facility] [address] [place], [address] Bilirubin [Mass/Vol] 0.50 mg/dL Normal 0.20-1.00 [facility] Comment on above: Order Comment: 301.2 Result Comment: For patients on eltrombopag therapy, use of Dimension [place] TBIL is not recommended. Performed By: #### L 500.2500, L100.0500 #### [facility] [address] [place], [address] Order Comment: 301.2 SC Result Comment: For patients on eltrombopag therapy, use of Dimension [place] TBIL is not recommended. Performed By: #### M 100.2200, L100.0500, L400.0001, L500.4050 ####[facility] [address] [place], [address] BUN/CRE 15.8 RATIO Normal 10-20 [facility] Comment on above: Order Comment: 301.2 Performed By: #### L 500.2500, L100.0500 #### [facility] [address] [place], [address] Order Comment: 301.2 SC Performed By: #### M 100.2200, L100.0500, L400.0001, L500.4050 ####[facility] [address] [place], [address] CA,Total 8.6 mg/dL Normal 8.5-10.1 [facility] Comment on above: Order Comment: 301.2 Performed By: #### L 500.2500, L100.0500 #### [facility] [address] [place], [address] Order Comment: 301.2 SC Performed By: #### M 100.2200, L100.0500, L400.0001, L500.4050 ####[facility] [address] [place], [address] Chloride [Moles/Vol] 110 mmol/L High 98-107 [facility] Comment on above: Order Comment: 301.2 Performed By: #### L 500.2500, L100.0500 #### [facility] [address] [place], [address] Order Comment: 301.2 SC Performed By: #### M 100.2200, L100.0500, L400.0001, L500.4050 ####[facility] [address] [place], [address] CO2 [Moles/Vol] 29.0 mmol/L Normal 21.0-32.0 [facility] Comment on above: Order Comment: 301.2 Performed By: #### L 500.2500, L100.0500 #### [facility] [address] [place], [address] Order Comment: 301.2 SC Performed By: #### M 100.2200, L100.0500, L400.0001, L500.4050 ####[facility] [address] [place], [address] Creatinine [Mass/Vol] 0.89 mg/dL Normal 0.55-1.02 [facility] Comment on above: Order Comment: 301.2 Result Comment: The validity of the calculated GFR GFRAA in patients over 70 years has not been determined. Clinical correlation is essential. Performed By: #### L 500.2500, L100.0500 #### [facility] [address] [place], [address] Order Comment: 301.2 SC Result Comment: The validity of the calculated GFR GFRAA in patients over70 years has not been determined. Clinical correlation isessential. Performed By: #### M 100.2200, L100.0500, L400.0001, L500.4050 ####[facility] [address] [place], [address] EST GFR - AA 77 mL/min Normal >60 [facility] Comment on above: Order Comment: 301.2 Result Comment: Afri can Norwegian GFR Calc Performed By: #### L 500.2500, L100.0500 #### [facility] [address] [place], [address] Order Comment: 301.2 SC Result Comment: Afri can Norwegian GFR Calc Performed By: #### M 100.2200, L100.0500, L400.0001, L500.4050 ####[facility] [address] [place], [address] GAP 3 Low 5-15 [facility] Comment on above: Order Comment: 301.2 Performed By: #### L 500.2500, L100.0500 #### [facility] [address] [place], [address] Order Comment: 301.2 SC Performed By: #### M 100.2200, L100.0500, L400.0001, L500.4050 ####[facility] [address] [place], [address] GFR/1.73 sq M.predicted among non-blacks MDRD (S/P/Bld) [Vol rate/Area] 64 mL/min/{1.73_m2} Normal >60 [facility] Comment on above: Order Comment: 301.2 Result Comment: Non- GFR Calc Performed By: #### L 500.2500, L100.0500 #### [facility] [address] [place], [address] Order Comment: 301.2 SC Result Comment: Non- GFR Calc Performed By: #### M 100.2200, L100.0500, L400.0001, L500.4050 ####[facility] [address] [place], [address] Globulin (S) [Mass/Vol] 3.8 g/dL Normal 2.2-4.2 [facility] Comment on above: Order Comment: 301.2 Performed By: #### L 500.2500, L100.0500 #### [facility] [address] [place], [address] Order Comment: 301.2 SC Performed By: #### M 100.2200, L100.0500, L400.0001, L500.4050 ####[facility] [address] [place], [address] Glucose [Mass/Vol] 84 mg/dL Normal 74-106 [facility] Comment on above: Order Comment: 301.2 Performed By: #### L 500.2500, L100.0500 #### [facility] [address] [place], [address] Order Comment: 301.2 SC Performed By: #### M 100.2200, L100.0500, L400.0001, L500.4050 ####[facility] [address] [place], [address] Potassium [Moles/Vol] 4.4 mmol/L Normal 3.5-5.1 [facility] Comment on above: Order Comment: 301.2 Performed By: #### L 500.2500, L100.0500 #### [facility] [address] [place], [address] Order Comment: 301.2 SC Performed By: #### M 100.2200, L100.0500, L400.0001, L500.4050 ####[facility] [address] [place], [address] Sodium [Moles/Vol] 142 mmol/L Normal 136-145 [facility] Comment on above: Order Comment: 301.2 Performed By: #### L 500.2500, L100.0500 #### [facility] [address] [place], [address] Order Comment: 301.2 SC Performed By: #### M 100.2200, L100.0500, L400.0001, L500.4050 ####[facility] [address] [place], [address] T PROT 6.4 g/dL Normal 6.4-8.2 [facility] Comment on above: Order Comment: 301.2 Performed By: #### L 500.2500, L100.0500 #### [facility] [address] [place], [address] Order Comment: 301.2 SC Performed By: #### M 100.2200, L100.0500, L400.0001, L500.4050 ####[facility] [address] [place], [address] Urea nitrogen [Mass/Vol] 14 mg/dL Normal 7-18 [facility] Comment on above: Order Comment: 301.2 Performed By: #### L 500.2500, L100.0500 #### [facility] [address] [place], [address] Order Comment: 301.2 SC Performed By: #### M 100.2200, L100.0500, L400.0001, L500.4050 ####[facility] [address] [place], [address] Erythrocyte distribution wid th (RBC) [Ratio]Ordered By: aKm Ocampo on 01-26-2024 Erythrocyte distribution width (RBC) [Entitic vol] 48.3 fL High 35.1-43.9 [facility] Erythrocyte distribution wid th ratioOrdered By: Kam Ocampo on 01-26-2024 Erythrocyte distribution width (RBC) [Ratio] 13.5 % 11.6-14.6 [facility] Estimated glomerular filtrat ion rate (GFR) AmericanOrdered By: Kam Ocampo on 01-26-2024 Estimated GFR (MDRD) Amer 77 mL/min >60 [facility] Comment on above: GFR Calc Glomerular filtration rate ( GFR) estimationOrdered By: Kam Ocampo on 01-26-2024 Estimated GFR (MDRD) Non-Af Amer 64 mL/min >60 [facility] Comment on above: Non- GFR Calc Glucose measurementOrdered B y: Kam Ocampo on 01-26-2024 Glucose [Mass/Vol] 84 mg/dL 74-106 [facility] Hematocrit Auto (Bld) [Volum e fraction]Ordered By: Kam Ocampo on 01-26-2024 Hematocrit (Bld) [Volume fraction] 31.1 % Low 37-47 [facility] Hemoglobin measurementOrdere d By: Kam Ocampo on 01-26-2024 Hemoglobin (Bld) [Mass/Vol] 10.0 g/dL Low 12.0-15.0 [facility] - Chemistry and C hemistry - challengeOrdered By: Kam Ocampo on 01-26-2024 AST [Catalytic activity/Vol] 25 U/L 15-37 [facility] MCV (mean corpuscular volume ) determinationOrdered By: Kam Ocampo on 01-26-2024 MCV (RBC) [Entitic vol] 98.4 fL 81-99 [facility] Mean corpuscular hemoglobin (MCH) determinationOrdered By: Kam Ocampo on 01-26-2024 MCH (RBC) [Entitic mass] 31.6 pg 27.0-32.0 [facility] Mean corpuscular hemoglobin concentration (MCHC) determinationOrdered By: Kam Ocampo on 01-26-2024 MCHC (RBC) [Mass/Vol] 32.2 g/dL 32-36 [facility] Mean platelet volume determi nationOrdered By: Kam Ocampo on 01-26-2024 Platelet mean volume (Bld) [Entitic vol] 9.2 fL 6.2-12.0 [facility] Platelet countOrdered By: Dugan on 01-26-2024 Platelets (Bld) [#/Vol] 197 10*3/uL 150-450 [facility] Potassium measurementOrdered By: Kam Ocampo on 01-26-2024 Potassium [Moles/Vol] 4.4 mmol/L 3.5-5.1 [facility] RBC Auto (Bld) [#/Vol]Ordere d By: Kam Ocampo on 01-26-2024 RBC (Bld) [#/Vol] 3.16 10*6/uL Low 4.2-5.4 [facility] Serum anion gap measurementO rdered By: Kam Ocampo on 01-26-2024 Anion gap [Moles/Vol] 3 mmol/L Low 5-15 [facility] Serum globulin measurementOr dered By: Kam Ocampo on 01-26-2024 Globulin (S) [Mass/Vol] 3.8 g/dL 2.2-4.2 [facility] Serum or plasma alanine browne otransferase (ALT) measurementOrdered By: Kam Ocampo on 01-26-2024 ALT [Catalytic activity/Vol] 28 U/L 13-56 [facility] Serum or plasma albumin светлана urement (mass/volume)Ordered By: Kam Ocampo on 01-26-2024 Albumin [Mass/Vol] 2.6 g/dL Low 3.2-5.0 [facility] Serum or plasma alkaline noy sphatase measurementOrdered By: Kam Ocampo on 01-26-2024 ALP [Catalytic activity/Vol] 67 U/L 45-117 [facility] Serum or plasma calcium светлана urement (mass/volume)Ordered By: Kam Ocampo on 01-26-2024 Calcium [Mass/Vol] 8.6 mg/dL 8.5-10.1 [facility] Serum or plasma creatinine m easurement (mass/volume)Ordered By: Kam Ocampo on 01-26-2024 Creatinine [Mass/Vol] 0.89 mg/dL 0.55-1.02 [facility] Comment on above: The validity of the calculated GFR & GFRAA in patients over 70 years has not been determined. Clinical correlation is essential. Serum or plasma urea nitroge n measurement (mass/volume)Ordered By: Kam Ocampo on 01-26-2024 Urea nitrogen [Mass/Vol] 14 mg/dL 7-18 [facility] Sodium levelOrdered By: Kamwilber Ocampo on 01-26-2024 Sodium [Moles/Vol] 142 mmol/L 136-145 [facility] Total proteinOrdered By: Aline Ocampo on 01-26-2024 Protein [Mass/Vol] 6.4 g/dL 6.4-8.2 [facility] Urinalysis, Completeon 01-25 Mucus Ql (Urine sed) RARE Normal [facility] Comment on above: Order Comment: 301.2 Performed By: #### L 500.2500, L100.0500 #### [facility] [address] [place], [place], [address] Order Comment: SCCAT HETER SPECIMEN Performed By: #### M 100.2200, L100.0500, L400.0001, L500.4050 ####[facility] [address] [place], [address] WBC 0-5 SEEN Normal 0-5 [facility] Comment on above: Order Comment: 301.2 Performed By: #### L 500.2500, L100.0500 #### [facility] [address] [place], [place], [address] Order Comment: SCCAT HETER SPECIMEN Performed By: #### M 100.2200, L100.0500, L400.0001, L500.4050 ####[facility] [address] [place], [address] BACTERIA 0 SEEN Normal None Seen [facility] Comment on above: Order Comment: 301.2 Performed By: #### L 500.2500, L100.0500 #### [facility] [address] [place], [address] Order Comment: SCCAT HETER SPECIMEN Performed By: #### M 100.2200, L100.0500, L400.0001, L500.4050 ####[facility] [address] [place], [address] EPI,SQUAMOUS 0 SEEN Normal 5-10 [facility] Comment on above: Order Comment: 301.2 Performed By: #### L 500.2500, L100.0500 #### [facility] [address] [place], [address] Order Comment: SCCAT HETER SPECIMEN Performed By: #### M 100.2200, L100.0500, L400.0001, L500.4050 ####[facility] [address] [place], [address] RBC 0 SEEN Normal 0-5 [facility] Comment on above: Order Comment: 301.2 Performed By: #### L 500.2500, L100.0500 #### [facility] [address] [place], [address] Order Comment: SCCAT HETER SPECIMEN Performed By: #### M 100.2200, L100.0500, L400.0001, L500.4050 ####[facility] [address] [place], [address] White blood cell (WBC) count Ordered By: Kam Ocampo on 01-26-2024 WBC (Bld) [#/Vol] 5.2 10*3/uL 4.4-11.0 [facility] Bilirubin Test strip Ql (U)O rdered By: Kam Ocampo on 01-25-2024 Bilirubin Ql (U) Negative Negative [facility] Epithelial cells.squamous LM Ql (Urine sed)Ordered By: Kam Ocampo on 01-25-2024 Epithelial cells.squamous LM.HPF (Urine sed) [#/Area] 0 /[HPF] 5-10 [facility] Glucose Ql (U)Ordered By: Dugan on 01-25-2024 Urine Glucose (UA) Normal mg/dl Normal [facility] Ketones Test strip Ql (U)Ord ered By: Kam Ocampo on 01-25-2024 Ketones Ql (U) Negative Negative [facility] Microscopic analysis of urin e for red blood cells (RBC)Ordered By: Kam Ocampo on 01-25-2024 Urine RBC 0 SEEN /hpf 0-5 [facility] Mucus LM Ql (Urine sed)Order ed By: Kam Ocampo on 01-25-2024 Mucus Ql (Urine sed) RARE /hpf [facility] Nitrite Test strip Ql (U)Ord ered By: Kam Ocampo on 01-25-2024 Nitrite Ql (U) Negative Negative [facility] Protein Test strip Ql (U)Ord ered By: Kam Ocampo on 01-25-2024 Protein Ql (U) 15 mg/dl High Negative [facility] Urine blood detectionOrdered By: Kam Ocampo on 01-25-2024 Urine Occult Blood Negative Negative [facility] Urine clarityOrdered By: Aline Ocampo on 01-25-2024 Clarity (U) Clear Clear [facility] Urine color determinationOrd ered By: Kam Ocampo on 01-25-2024 Color (U) Yellow Yellow [facility] Urine cultureOrdered By: Aline Ocampo on 01-25-2024 Bacteria identified Cx Nom (U) Culture exhibits no growth. [facility] Urine leukocyte esterase det ection by dipstickOrdered By: Kam Ocampo on 01-25-2024 Leukocyte esterase Test strip Ql (U) 25 /ul High Negative [facility] Urine pHOrdered By: Kam barker on 01-25-2024 pH (U) 6.0 [pH] 5.0 - 8.0 [facility] Urine sediment bacteria coun t by microscopy (number/high power field)Ordered By: Kam Ocampo on 01-25-2024 Bacteria LM.HPF (Urine sed) [#/Area] 0 /[HPF] None Seen [facility] Urine specific gravity measu rementOrdered By: Kam Ocampo on 01-25-2024 Specific gravity (U) [Rel density] 1.015 1.002-1.03 0 [facility] Urobilinogen Ql (U)Ordered B y: Kam Ocampo on 01-25-2024 Urine Urobilinogen Normal mg/dl Normal [facility] White blood cell countOrdere d By: Kam Ocampo on 01-25-2024 Urine WBC 0-5 SEEN /hpf 0-5 [facility] Urine Cultureon 01-13-2024 URC Proteus mirabilis [place] Count >100,000 Proteus mirabilis: REACTION Ampicillin Islt [...] TMP SMX Islt AYAH >=320 R Normal [facility] Comment on above: Performed By: #### L 500.2500, L100.0500 #### [facility] [address] [place], [place], [address] URC Normal [facility] Comment on above: Performed By: #### M 100.2200, L400.0001 ####[facility] [address] [place], [address] Urinalysis, Completeon 01-10 RBC 0-5 SEEN Normal 0-5 [facility] Comment on above: Order Comment: 301.2 Performed By: #### L 500.2500, L100.0500 #### [facility] [address] [place], [place], [address] Order Comment: CLEAN CATCH Performed By: #### M 100.2200, L400.0001 ####[facility] [address] [place], [address] BACTERIA 2+ /hpf Normal None Seen [facility] Comment on above: Order Comment: 301.2 Performed By: #### L 500.2500, L100.0500 #### [facility] [address] [place], [address] Order Comment: CLEAN CATCH Performed By: #### M 100.2200, L400.0001 ####[facility] [address] [place], [address] EPI,SQUAMOUS 0-5 SEEN Normal 5-10 [facility] Comment on above: Order Comment: 301.2 Performed By: #### L 500.2500, L100.0500 #### [facility] [address] [place], [address] Order Comment: CLEAN CATCH Performed By: #### M 100.2200, L400.0001 ####[facility] [address] [place], [address] WBC >100 SEEN Normal 0-5 [facility] Comment on above: Order Comment: 301.2 Performed By: #### L 500.2500, L100.0500 #### [facility] [address] [place], [address] Order Comment: CLEAN CATCH Performed By: #### M 100.2200, L400.0001 ####[facility] [address] [place], [address] Mucus Ql (Urine sed) 0 SEEN Normal [facility] Comment on above: Order Comment: 301.2 Performed By: #### L 500.2500, L100.0500 #### [facility] [address] [place], [address] Order Comment: CLEAN CATCH Performed By: #### M 100.2200, L400.0001 ####[facility] [address] [place], [address] Lipid Profileon 12-14-2023 Cholesterol [Mass/Vol] 120 mg/dL Normal 200 [facility] Comment on above: Order Comment: 301.2 Result Comment: <200 mg/dL Desirable 200-240 mg/dL Borderline >240 mg/dL High Risk Performed By: #### L 501.080 #### [facility] [address] [place], [address] Order Comment: 301.2 Result Comment: <200 mg/dL Desirable 200-240 mg/dL Borderline >240 mg/dL High Risk Performed By: #### L 500.4100 ####[facility] [address] [place], [address] Cholesterol in HDL [Mass/Vol] 55 mg/dL Normal [facility] Comment on above: Order Comment: 301.2 Result Comment: The drugs N-Acetylcysteine and Metamizole may falsely depress this assay. Reference Range HDL <40 mg/dL Low HDL Cholesterol HDL >or= 60 mg/dL High HDL Cholesterol Performed By: #### L 501.080 #### [facility] [address] [place], [address] Order Comment: 301.2 Result Comment: The drugs N-Acetylcysteine and Metamizole may falselydepress this assay. Reference Range HDL <40 mg/dL Low HDL Cholesterol HDL >or= 60 mg/dL High HDL Cholesterol Performed By: #### L 500.4100 ####[facility] [address] [place], [address] Cholesterol in LDL [Mass/Vol] 51 mg/dL Normal 0-130 [facility] Comment on above: Order Comment: 301.2 Performed By: #### L 501.080 #### [facility] [address] [place], [address] Order Comment: 301.2 Performed By: #### L 500.4100 ####[facility] [address] [place], [place], [address] Cholesterol in VLDL [Mass/Vol] 14 mg/dL Normal 5-40 [facility] Comment on above: Order Comment: 301.2 Performed By: #### L 501.080 #### [facility] [address] [place], [address] Order Comment: 301.2 Performed By: #### L 500.4100 ####[facility] [address] [place], [place], [address] Triglyceride [Mass/Vol] 70 mg/dL Normal [facility] Comment on above: Order Comment: 301.2 Result Comment: The drugs N-Acetylcysteine and Metamizole may falsely depress this assay. Serum Triglycerides Reference Interval Normal <150 mg/dL Borderline high 150 - 199 mg/dL High 200 - 499 mg/dL Very High > or = 500 mg/dL Performed By: #### L 501.080 #### [facility] [address] [place], [place], [address] Order Comment: 301.2 Result Comment: The drugs N-Acetylcysteine and Metamizole may falselydepress this assay.Serum Triglycerides Reference Interval Normal <150 mg/dL Borderline high 150 - 199 mg/dL High 200 - 499 mg/dL Very High > or = 500 mg/dL Performed By: #### L 500.4100 ####[facility] [address] [place], [address] CBC-Complete Blood Cnt No Di ffon 10-21-2023 Erythrocyte distribution width (RBC) [Ratio] 13.7 % Normal 11.6-14.6 [facility] Comment on above: Order Comment: 301.2 Performed By: #### L 500.4050, L100.0500 #### [facility] [address] [place], [address] Hematocrit (Bld) [Volume fraction] 32.2 % Low 37-47 [facility] Comment on above: Order Comment: 301.2 Performed By: #### L 500.4050, L100.0500 #### [facility] [address] [place], [address] Hemoglobin (Bld) [Mass/Vol] 10.2 g/dL Low 12.0-15.0 [facility] Comment on above: Order Comment: 301.2 Performed By: #### L 500.4050, L100.0500 #### [facility] [address] [place], [address] MCH (RBC) [Entitic mass] 32.3 pg High 27.0-32.0 [facility] Comment on above: Order Comment: 301.2 Performed By: #### L 500.4050, L100.0500 #### [facility] [address] [place], [address] MCHC (RBC) [Mass/Vol] 31.7 g/dL Low 32-36 [facility] Comment on above: Order Comment: 301.2 Performed By: #### L 500.4050, L100.0500 #### [facility] [address] [place], [address] MCV (RBC) [Entitic vol] 101.9 fL High 81-99 [facility] Comment on above: Order Comment: 301.2 Performed By: #### L 500.4050, L100.0500 #### [facility] [address] [place], [address] Platelet mean volume (Bld) [Entitic vol] 10.0 fL Normal 6.2-12.0 [facility] Comment on above: Order Comment: 301.2 Performed By: #### L 500.4050, L100.0500 #### [facility] [address] [place], [address] Platelets (Bld) [#/Vol] 157 10*3/uL Normal 150-450 [facility] Comment on above: Order Comment: 301.2 Performed By: #### L 500.4050, L100.0500 #### [facility] [address] [place], [address] RBC (Bld) [#/Vol] 3.16 10*6/uL Low 4.2-5.4 [facility] Comment on above: Order Comment: 301.2 Performed By: #### L 500.4050, L100.0500 #### [facility] [address] [place], [address] RDW SD 51.9 fl High 35.1-43.9 [facility] Comment on above: Order Comment: 301.2 Performed By: #### L 500.4050, L100.0500 #### [facility] [address] [place], [address] WBC (Bld) [#/Vol] 4.3 10*3/uL Low 4.4-11.0 [facility] Comment on above: Order Comment: 301.2 Performed By: #### L 500.4050, L100.0500 #### [facility] [address] [place], [address] Comprehensive Metabolic Prof ilon 10-21-2023 Albumin [Mass/Vol] 2.8 g/dL Low 3.2-5.0 [facility] Comment on above: Order Comment: 301.2 Performed By: #### L 500.4050, L100.0500 #### [facility] [address] [place], [address] Albumin/Globulin [Mass ratio] 0.7 {ratio} Low 0.9-2.4 [facility] Comment on above: Order Comment: 301.2 Performed By: #### L 500.4050, L100.0500 #### [facility] [address] [place], [address] ALK P 64 U/L Normal 45-117 [facility] Comment on above: Order Comment: 301.2 Performed By: #### L 500.4050, L100.0500 #### [facility] [address] [place], [address] ALT [Catalytic activity/Vol] 27 U/L Normal 13-56 [facility] Comment on above: Order Comment: 301.2 Performed By: #### L 500.4050, L100.0500 #### [facility] [address] [place], [address] AST [Catalytic activity/Vol] 24 U/L Normal 15-37 [facility] Comment on above: Order Comment: 301.2 Performed By: #### L 500.4050, L100.0500 #### [facility] [address] [place], [address] Bilirubin [Mass/Vol] 0.40 mg/dL Normal 0.20-1.00 [facility] Comment on above: Order Comment: 301.2 Result Comment: For patients on eltrombopag therapy, use of Dimension [place] TBIL is not recommended. Performed By: #### L 500.4050, L100.0500 #### [facility] [address] [place], [address] BUN/CRE 21.2 RATIO High 10-20 [facility] Comment on above: Order Comment: 301.2 Performed By: #### L 500.4050, L100.0500 #### [facility] [address] [place], [address] CA,Total 9.0 mg/dL Normal 8.5-10.1 [facility] Comment on above: Order Comment: 301.2 Performed By: #### L 500.4050, L100.0500 #### [facility] [address] [place], [address] Chloride [Moles/Vol] 108 mmol/L High 98-107 [facility] Comment on above: Order Comment: 301.2 Performed By: #### L 500.4050, L100.0500 #### [facility] [address] [place], [address] CO2 [Moles/Vol] 25.0 mmol/L Normal 21.0-32.0 [facility] Comment on above: Order Comment: 301.2 Performed By: #### L 500.4050, L100.0500 #### [facility] [address] [place], [address] Creatinine [Mass/Vol] 0.85 mg/dL Normal 0.55-1.02 [facility] Comment on above: Order Comment: 301.2 Result Comment: The validity of the calculated GFR GFRAA in patients over 70 years has not been determined. Clinical correlation is essential. Performed By: #### L 500.4050, L100.0500 #### [facility] [address] [place], [address] EST GFR - AA 81 mL/min Normal >60 [facility] Comment on above: Order Comment: 301.2 Result Comment: Afri can Norwegian GFR Calc Performed By: #### L 500.4050, L100.0500 #### [facility] [address] [place], [address] GAP 7 Normal 5-15 [facility] Comment on above: Order Comment: 301.2 Performed By: #### L 500.4050, L100.0500 #### [facility] [address] [place], [address] GFR/1.73 sq M.predicted among non-blacks MDRD (S/P/Bld) [Vol rate/Area] 67 mL/min/{1.73_m2} Normal >60 [facility] Comment on above: Order Comment: 301.2 Result Comment: Non- GFR Calc Performed By: #### L 500.4050, L100.0500 #### [facility] [address] [place], [address] Globulin (S) [Mass/Vol] 3.9 g/dL Normal 2.2-4.2 [facility] Comment on above: Order Comment: 301.2 Performed By: #### L 500.4050, L100.0500 #### [facility] [address] [place], [address] Glucose [Mass/Vol] 89 mg/dL Normal 74-106 [facility] Comment on above: Order Comment: 301.2 Performed By: #### L 500.4050, L100.0500 #### [facility] [address] [place], [address] Potassium [Moles/Vol] 3.9 mmol/L Normal 3.5-5.1 [facility] Comment on above: Order Comment: 301.2 Performed By: #### L 500.4050, L100.0500 #### [facility] [address] [place], [address] Sodium [Moles/Vol] 140 mmol/L Normal 136-145 [facility] Comment on above: Order Comment: 301.2 Performed By: #### L 500.4050, L100.0500 #### [facility] [address] [place], [address] T PROT 6.7 g/dL Normal 6.4-8.2 [facility] Comment on above: Order Comment: 301.2 Performed By: #### L 500.4050, L100.0500 #### [facility] [address] [place], [address] Urea nitrogen [Mass/Vol] 18 mg/dL Normal 7-18 [facility] Comment on above: Order Comment: 301.2 Performed By: #### L 500.4050, L100.0500 #### [facility] [address] [place], [address] Basic Metabolic Profile (BMP )on 09-16-2023 BUN/CRE 17.2 RATIO Normal 10-20 [facility] Comment on above: Order Comment: 301.2 Performed By: #### L 500.2500, L100.0500 #### [facility] [address] [place], [address] CA,Total 9.0 mg/dL Normal 8.5-10.1 [facility] Comment on above: Order Comment: 301.2 Performed By: #### L 500.2500, L100.0500 #### [facility] [address] [place], [address] Chloride [Moles/Vol] 109 mmol/L High 98-107 [facility] Comment on above: Order Comment: 301.2 Performed By: #### L 500.2500, L100.0500 #### [facility] [address] [place], [address] CO2 [Moles/Vol] 27.0 mmol/L Normal 21.0-32.0 [facility] Comment on above: Order Comment: 301.2 Performed By: #### L 500.2500, L100.0500 #### [facility] [address] [place], [address] Creatinine [Mass/Vol] 0.93 mg/dL Normal 0.55-1.02 [facility] Comment on above: Order Comment: 301.2 Result Comment: The validity of the calculated GFR GFRAA in patients over 70 years has not been determined. Clinical correlation is essential. Performed By: #### L 500.2500, L100.0500 #### [facility] [address] [place], [address] EST GFR - AA 73 mL/min Normal >60 [facility] Comment on above: Order Comment: 301.2 Result Comment: Afri can Norwegian GFR Calc Performed By: #### L 500.2500, L100.0500 #### [facility] [address] [place], [address] GAP 5 Normal 5-15 [facility] Comment on above: Order Comment: 301.2 Performed By: #### L 500.2500, L100.0500 #### [facility] [address] [place], [address] GFR/1.73 sq M.predicted among non-blacks MDRD (S/P/Bld) [Vol rate/Area] 61 mL/min/{1.73_m2} Normal >60 [facility] Comment on above: Order Comment: 301.2 Result Comment: Non- GFR Calc Performed By: #### L 500.2500, L100.0500 #### [facility] [address] [place], [address] Glucose [Mass/Vol] 84 mg/dL Normal 74-106 [facility] Comment on above: Order Comment: 301.2 Performed By: #### L 500.2500, L100.0500 #### [facility] [address] [place], [address] Potassium [Moles/Vol] 4.1 mmol/L Normal 3.5-5.1 [facility] Comment on above: Order Comment: 301.2 Performed By: #### L 500.2500, L100.0500 #### [facility] [address] [place], [address] Sodium [Moles/Vol] 141 mmol/L Normal 136-145 [facility] Comment on above: Order Comment: 301.2 Performed By: #### L 500.2500, L100.0500 #### [facility] [address] [place], [address] Urea nitrogen [Mass/Vol] 16 mg/dL Normal 7-18 [facility] Comment on above: Order Comment: 301.2 Performed By: #### L 500.2500, L100.0500 #### [facility] [address] [place], [address] CBC-Complete Blood Cnt No Shannan guyon 09-16-2023 Erythrocyte distribution width (RBC) [Ratio] 13.9 % Normal 11.6-14.6 [facility] Comment on above: Order Comment: 301.2 Performed By: #### L 500.2500, L100.0500 #### [facility] [address] [place], [address] Hematocrit (Bld) [Volume fraction] 30.8 % Low 37-47 [facility] Comment on above: Order Comment: 301.2 Performed By: #### L 500.2500, L100.0500 #### [facility] [address] [place], [address] Hemoglobin (Bld) [Mass/Vol] 10.0 g/dL Low 12.0-15.0 [facility] Comment on above: Order Comment: 301.2 Performed By: #### L 500.2500, L100.0500 #### [facility] [address] [place], [address] MCH (RBC) [Entitic mass] 32.2 pg High 27.0-32.0 [facility] Comment on above: Order Comment: 301.2 Performed By: #### L 500.2500, L100.0500 #### [facility] [address] [place], [address] MCHC (RBC) [Mass/Vol] 32.5 g/dL Normal 32-36 [facility] Comment on above: Order Comment: 301.2 Performed By: #### L 500.2500, L100.0500 #### [facility] [address] [place], [address] MCV (RBC) [Entitic vol] 99.0 fL Normal 81-99 [facility] Comment on above: Order Comment: 301.2 Performed By: #### L 500.2500, L100.0500 #### [facility] [address] [place], [address] Platelet mean volume (Bld) [Entitic vol] 9.6 fL Normal 6.2-12.0 [facility] Comment on above: Order Comment: 301.2 Performed By: #### L 500.2500, L100.0500 #### [facility] [address] [place], [address] Platelets (Bld) [#/Vol] 200 10*3/uL Normal 150-450 [facility] Comment on above: Order Comment: 301.2 Performed By: #### L 500.2500, L100.0500 #### [facility] [address] [place], [address] RBC (Bld) [#/Vol] 3.11 10*6/uL Low 4.2-5.4 [facility] Comment on above: Order Comment: 301.2 Performed By: #### L 500.2500, L100.0500 #### [facility] [address] [place], [address] RDW SD 50.5 fl High 35.1-43.9 [facility] Comment on above: Order Comment: 301.2 Performed By: #### L 500.2500, L100.0500 #### [facility] [address] [place], [address] WBC (Bld) [#/Vol] 5.3 10*3/uL Normal 4.4-11.0 [facility] Comment on above: Order Comment: 301.2 Performed By: #### L 500.2500, L100.0500 #### [facility] [address] [place], [address] Renal Profileon 09-02-2023 Albumin [Mass/Vol] 2.7 g/dL Low 3.2-5.0 [facility] Comment on above: Order Comment: 301-2 Performed By: #### L 501.080 #### [facility] [address] [place], [address] BUN/CRE 21.0 RATIO High 10-20 [facility] Comment on above: Order Comment: 301-2 Performed By: #### L 501.080 #### [facility] [address] [place], [address] CA,Total 8.9 mg/dL Normal 8.5-10.1 [facility] Comment on above: Order Comment: 301-2 Performed By: #### L 501.080 #### [facility] [address] [place], [address] Chloride [Moles/Vol] 108 mmol/L High 98-107 [facility] Comment on above: Order Comment: 301-2 Performed By: #### L 501.080 #### [facility] [address] [place], [address] CO2 [Moles/Vol] 30.0 mmol/L Normal 21.0-32.0 [facility] Comment on above: Order Comment: 301-2 Performed By: #### L 501.080 #### [facility] [address] [place], [address] Creatinine [Mass/Vol] 1.00 mg/dL Normal 0.55-1.02 [facility] Comment on above: Order Comment: 301-2 Result Comment: The validity of the calculated GFR GFRAA in patients over 70 years has not been determined. Clinical correlation is essential. Performed By: #### L 501.080 #### [facility] [address] [place], [address] EST GFR - AA 67 mL/min Normal >60 [facility] Comment on above: Order Comment: 301-2 Result Comment: Afri can Norwegian GFR Calc Performed By: #### L 501.080 #### [facility] [address] [place], [address] GFR/1.73 sq M.predicted among non-blacks MDRD (S/P/Bld) [Vol rate/Area] 56 mL/min/{1.73_m2} Low >60 [facility] Comment on above: Order Comment: 301-2 Result Comment: Non- GFR Calc Performed By: #### L 501.080 #### [facility] [address] [place], [address] Glucose [Mass/Vol] 70 mg/dL Low 74-106 [facility] Comment on above: Order Comment: 301-2 Performed By: #### L 501.080 #### [facility] [address] [place], [address] Phosphate [Mass/Vol] 3.6 mg/dL Normal 2.5-4.9 [facility] Comment on above: Order Comment: 301-2 Performed By: #### L 501.080 #### [facility] [address] [place], [address] Potassium [Moles/Vol] 4.0 mmol/L Normal 3.5-5.1 [facility] Comment on above: Order Comment: 301-2 Performed By: #### L 501.080 #### [facility] [address] [place], [address] Sodium [Moles/Vol] 142 mmol/L Normal 136-145 [facility] Comment on above: Order Comment: 301-2 Performed By: #### L 501.080 #### [facility] [address] [place], [address] Urea nitrogen [Mass/Vol] 21 mg/dL High 7-18 [facility] Comment on above: Order Comment: 301-2 Performed By: #### L 501.080 #### [facility] [address] [place], [address] Basophil percentageOrdered B y: Kam Ocampo on 04-15-2023 Chloride [Moles/Vol] 107 mmol/L 98-107 [facility] Glucose [Mass/Vol] 86 mg/dL 74-106 [facility] Potassium [Moles/Vol] 3.9 mmol/L 3.5-5.1 [facility] Sodium [Moles/Vol] 143 mmol/L 136-145 [facility] - Chemistry and C hemistry - challengeOrdered By: Kam Ocampo on 04-15-2023 CO2 [Moles/Vol] 32.0 mmol/L 21.0-32.0 [facility] Urea nitrogen/Creatinine [Mass ratio] 20.3 mg/mg 10-20 [facility] No Panel InformationOrdered By: Kam Ocampo on 04-15-2023 Estimated GFR (MDRD) Amer 78 mL/min >60 [facility] Comment on above: GFR Calc Estimated GFR (MDRD) Non-Af Amer 64 mL/min >60 [facility] Comment on above: Non- GFR Calc Serum or plasma calcium светлана urement (mass/volume)Ordered By: Kam Ocampo on 04-15-2023 Calcium [Mass/Vol] 8.5 mg/dL 8.5-10.1 [facility] Serum or plasma creatinine m easurement (mass/volume)Ordered By: Kam Ocampo on 04-15-2023 Creatinine [Mass/Vol] 0.89 mg/dL 0.55-1.02 [facility] Comment on above: The validity of the calculated GFR & GFRAA in patients over 70 years has not been determined. Clinical correlation is essential. Serum or plasma urea nitroge n measurement (mass/volume)Ordered By: Kam Ocampo on 04-15-2023 Urea nitrogen [Mass/Vol] 18 mg/dL 7-18 [facility] Thin prep Papanicolaou smear with manual screeningOrdered By: Kam Ocampo on 04-15-2023 Thin prep Papanicolaou smear with manual screening 4 5-15 [facility] Basophil percentageOrdered B y: Kam Ocamop on 03-11-2023 Bilirubin [Mass/Vol] 0.30 mg/dL 0.20-1.00 [facility] Comment on above: For patients on eltr ombopag therapy, use of Dimension [place] TBIL is not recommended. Chloride [Moles/Vol] 104 mmol/L 98-107 [facility] Glucose [Mass/Vol] 102 mg/dL 74-106 [facility] Comment on above: Fasting Glucose resu lt from 100 to 125 mg/dL suggests IMPAIRED HOMEOSTASIS per A.D.A. criteria. Hemoglobin (Bld) [Mass/Vol] 10.4 g/dL 12.0-15.0 [facility] Potassium [Moles/Vol] 4.1 mmol/L 3.5-5.1 [facility] Protein [Mass/Vol] 6.5 g/dL 6.4-8.2 [facility] Sodium [Moles/Vol] 140 mmol/L 136-145 [facility] WBC (Bld) [#/Vol] 4.9 10*3/uL 4.4-11.0 [facility] Determination of erythrocyte mean corpuscular volume (MCV)Ordered By: Kam Ocampo on 03-11-2023 MCV (RBC) [Entitic vol] 103.0 fL 81-99 [facility] Erythrocyte distribution wid th ratioOrdered By: Kam Ocampo on 03-11-2023 Erythrocyte distribution width (RBC) [Ratio] 14.4 % 11.6-14.6 [facility] Erythrocyte distribution wid th standard deviationOrdered By: Kam Ocampo on 03-11-2023 Erythrocyte distribution width (RBC) [Entitic vol] 54.2 fL 35.1-43.9 [facility] Hematocrit Auto (Bld) [Volum e fraction]Ordered By: Kam Ocampo on 03-11-2023 Hematocrit (Bld) [Volume fraction] 34.2 % 37-47 [facility] - Chemistry and C hemistry - challengeOrdered By: Kam Ocampo on 03-11-2023 Albumin/Globulin [Mass ratio] 0.6 {ratio} 0.9-2.4 [facility] ALP [Catalytic activity/Vol] 62 U/L 45-117 [facility] ALT [Catalytic activity/Vol] 27 U/L 13-56 [facility] CO2 [Moles/Vol] 33.0 mmol/L 21.0-32.0 [facility] Globulin (S) [Mass/Vol] 4.0 g/dL 2.2-4.2 [facility] Urea nitrogen/Creatinine [Mass ratio] 21.7 mg/mg 10-20 [facility] - Hematology and Cell countsOrdered By: Kam Ocampo on 03-11-2023 MCH (RBC) [Entitic mass] 31.3 pg 27.0-32.0 [facility] MCHC (RBC) [Mass/Vol] 30.4 g/dL 32-36 [facility] Platelets (Bld) [#/Vol] 169 10*3/uL 150-450 [facility] No Panel InformationOrdered By: Kam Ocampo on 03-11-2023 Estimated GFR (MDRD) Amer 79 mL/min >60 [facility] Comment on above: GFR Calc Estimated GFR (MDRD) Non-Af Amer 65 mL/min >60 [facility] Comment on above: Non- GFR Calc Platelet mean volume [place]-Ec ker (Bld) [Entitic vol]Ordered By: Kam Ocampo on 03-11-2023 Platelet mean volume (Bld) [Entitic vol] 9.4 fL 6.2-12.0 [facility] RBC Auto (Bld) [#/Vol]Ordere d By: Kam Ocampo on 03-11-2023 RBC (Bld) [#/Vol] 3.32 10*6/uL 4.2-5.4 [facility] Serum or plasma calcium светлана urement (mass/volume)Ordered By: Kam Ocampo on 03-11-2023 Calcium [Mass/Vol] 9.5 mg/dL 8.5-10.1 [facility] Serum or plasma creatinine m easurement (mass/volume)Ordered By: Kam Ocampo on 03-11-2023 Creatinine [Mass/Vol] 0.88 mg/dL 0.55-1.02 [facility] Comment on above: The validity of the calculated GFR & GFRAA in patients over 70 years has not been determined. Clinical correlation is essential. Serum or plasma urea nitroge n measurement (mass/volume)Ordered By: Kam Ocampo on 03-11-2023 Urea nitrogen [Mass/Vol] 19 mg/dL 7-18 [facility] Thin prep Papanicolaou smear with manual screeningOrdered By: Kam Ocampo on 03-11-2023 Thin prep Papanicolaou smear with manual screening 2.5 g/dL 3.2-5.0 [facility] Thin prep Papanicolaou smear with manual screening 19 U/L 15-37 [facility] Thin prep Papanicolaou smear with manual screening 3 5-15 [facility] Basophil percentageOrdered B y: Kam Ocampo on 02-19-2023 Chloride [Moles/Vol] 105 mmol/L 98-107 [facility] Glucose [Mass/Vol] 117 mg/dL 74-106 [facility] Comment on above: Fasting Glucose resu lt from 100 to 125 mg/dL suggests IMPAIRED HOMEOSTASIS per A.D.A. criteria. Potassium [Moles/Vol] 4.7 mmol/L 3.5-5.1 [facility] Sodium [Moles/Vol] 139 mmol/L 136-145 [facility] WBC (Bld) [#/Vol] 4.1 10*3/uL 4.4-11.0 [facility] Blood erythrocytes count (nu mber/volume)Ordered By: Kam Ocampo on 02-19-2023 RBC (Bld) [#/Vol] 3.55 10*6/uL 4.2-5.4 [facility] Blood hemoglobin measurement (mass/volume)Ordered By: Kam Ocampo on 02-19-2023 Hemoglobin (Bld) [Mass/Vol] 11.5 g/dL 12.0-15.0 [facility] Blood platelet mean volumeOr dered By: Kam Ocampo on 02-19-2023 Platelet mean volume (Bld) [Entitic vol] 9.3 fL 6.2-12.0 [facility] Determination of erythrocyte mean corpuscular volume (MCV)Ordered By: Kam Ocampo on 02-19-2023 MCV (RBC) [Entitic vol] 100.6 fL 81-99 [facility] Hematocrit Auto (Bld) [Volum e fraction]Ordered By: Kam Ocampo on 02-19-2023 Hematocrit (Bld) [Volume fraction] 35.7 % 37-47 [facility] - Chemistry and C hemistry - challengeOrdered By: Kam Ocampo on 02-19-2023 CO2 [Moles/Vol] 29.0 mmol/L 21.0-32.0 [facility] Urea nitrogen/Creatinine [Mass ratio] 23.7 mg/mg 10-20 [facility] - Hematology and Cell countsOrdered By: Kam Ocampo on 02-19-2023 Erythrocyte distribution width (RBC) [Entitic vol] 50.7 fL 35.1-43.9 [facility] Erythrocyte distribution width (RBC) [Ratio] 13.6 % 11.6-14.6 [facility] MCH (RBC) [Entitic mass] 32.4 pg 27.0-32.0 [facility] MCHC Auto (RBC) [Mass/Vol]Or dered By: Kam Ocampo on 02-19-2023 MCHC (RBC) [Mass/Vol] 32.2 g/dL 32-36 [facility] No Panel InformationOrdered By: Kam Ocampo on 02-19-2023 Estimated GFR (MDRD) Amer 78 mL/min >60 [facility] Comment on above: GFR Calc Estimated GFR (MDRD) Non-Af Amer 64 mL/min >60 [facility] Comment on above: Non- GFR Calc Platelets bldOrdered By: Aline Ocampo on 02-19-2023 Platelets (Bld) [#/Vol] 173 10*3/uL 150-450 [facility] Respiratory pathogens DNA an d RNA panel ALTHEA+probe (Resp)Ordered By: Kam Ocampo on 02-19-2023 Respiratory Panel (PCR) RSV B [facility] Respiratory Panel (PCR) RSV B [facility] Serum or plasma calcium светлана urement (mass/volume)Ordered By: Kam Ocampo on 02-19-2023 Calcium [Mass/Vol] 8.4 mg/dL 8.5-10.1 [facility] Serum or plasma creatinine m easurement (mass/volume)Ordered By: Kam Ocampo on 02-19-2023 Creatinine [Mass/Vol] 0.89 mg/dL 0.55-1.02 [facility] Comment on above: The validity of the calculated GFR & GFRAA in patients over 70 years has not been determined. Clinical correlation is essential. Serum or plasma urea nitroge n measurement (mass/volume)Ordered By: Kam Ocampo on 02-19-2023 Urea nitrogen [Mass/Vol] 21 mg/dL 7-18 [facility] Thin prep Papanicolaou smear with manual screeningOrdered By: Kam Ocampo on 02-19-2023 Thin prep Papanicolaou smear with manual screening 5 5-15 [facility] Basophil percentageOrdered B y: Kam Ocampo on 02-10-2023 WBC (Bld) [#/Vol] 4.7 10*3/uL 4.4-11.0 [facility] Blood erythrocytes count (nu mber/volume)Ordered By: Kam Ocampo on 02-10-2023 RBC (Bld) [#/Vol] 3.25 10*6/uL 4.2-5.4 [facility] Blood hemoglobin measurement (mass/volume)Ordered By: Kam Ocampo on 02-10-2023 Hemoglobin (Bld) [Mass/Vol] 10.9 g/dL 12.0-15.0 [facility] Blood platelet mean volumeOr dered By: Kam Ocampo on 02-10-2023 Platelet mean volume (Bld) [Entitic vol] 9.2 fL 6.2-12.0 [facility] Determination of erythrocyte mean corpuscular volume (MCV)Ordered By: Kam Ocampo on 02-10-2023 MCV (RBC) [Entitic vol] 103.4 fL 81-99 [facility] Hematocrit Auto (Bld) [Volum e fraction]Ordered By: Kam Ocampo on 02-10-2023 Hematocrit (Bld) [Volume fraction] 33.6 % 37-47 [facility] - Hematology and Cell countsOrdered By: Kam Ocampo on 02-10-2023 Erythrocyte distribution width (RBC) [Entitic vol] 53.1 fL 35.1-43.9 [facility] Erythrocyte distribution width (RBC) [Ratio] 13.9 % 11.6-14.6 [facility] MCH (RBC) [Entitic mass] 33.5 pg 27.0-32.0 [facility] MCHC Auto (RBC) [Mass/Vol]Or dered By: Kam Ocampo on 02-10-2023 MCHC (RBC) [Mass/Vol] 32.4 g/dL 32-36 [facility] Platelets bldOrdered By: Aline Ocampo on 02-10-2023 Platelets (Bld) [#/Vol] 227 10*3/uL 150-450 [facility] Basophil percentageOrdered B y: Kam Ocampo on 01-27-2023 Bilirubin [Mass/Vol] 0.30 mg/dL 0.20-1.00 [facility] Comment on above: For patients on eltr ombopag therapy, use of Dimension [place] TBIL is not recommended. Chloride [Moles/Vol] 109 mmol/L 98-107 [facility] Glucose [Mass/Vol] 77 mg/dL 74-106 [facility] Potassium [Moles/Vol] 4.2 mmol/L 3.5-5.1 [facility] Protein [Mass/Vol] 6.2 g/dL 6.4-8.2 [facility] Sodium [Moles/Vol] 142 mmol/L 136-145 [facility] WBC (Bld) [#/Vol] 5.6 10*3/uL 4.4-11.0 [facility] Blood erythrocytes count (nu mber/volume)Ordered By: Kam Ocampo on 01-27-2023 RBC (Bld) [#/Vol] 3.10 10*6/uL 4.2-5.4 [facility] Blood hemoglobin measurement (mass/volume)Ordered By: Kam Ocampo on 01-27-2023 Hemoglobin (Bld) [Mass/Vol] 10.1 g/dL 12.0-15.0 [facility] Blood platelet mean volumeOr dered By: Kam Ocampo on 01-27-2023 Platelet mean volume (Bld) [Entitic vol] 9.2 fL 6.2-12.0 [facility] Determination of erythrocyte mean corpuscular volume (MCV)Ordered By: Kam Ocampo on 01-27-2023 MCV (RBC) [Entitic vol] 103.9 fL 81-99 [facility] Hematocrit Auto (Bld) [Volum e fraction]Ordered By: Kam Ocampo on 01-27-2023 Hematocrit (Bld) [Volume fraction] 32.2 % 37-47 [facility] - Chemistry and C hemistry - challengeOrdered By: Kam Ocampo on 01-27-2023 ALP [Catalytic activity/Vol] 66 U/L 45-117 [facility] ALT [Catalytic activity/Vol] 29 U/L 13-56 [facility] CO2 [Moles/Vol] 30.0 mmol/L 21.0-32.0 [facility] Globulin (S) [Mass/Vol] 3.8 g/dL 2.2-4.2 [facility] Urea nitrogen/Creatinine [Mass ratio] 21.9 mg/mg 10-20 [facility] - Hematology and Cell countsOrdered By: Kam Ocampo on 01-27-2023 Erythrocyte distribution width (RBC) [Entitic vol] 54.4 fL 35.1-43.9 [facility] Erythrocyte distribution width (RBC) [Ratio] 14.4 % 11.6-14.6 [facility] MCH (RBC) [Entitic mass] 32.6 pg 27.0-32.0 [facility] MCHC Auto (RBC) [Mass/Vol]Or dered By: Kam Ocampo on 01-27-2023 MCHC (RBC) [Mass/Vol] 31.4 g/dL 32-36 [facility] No Panel InformationOrdered By: Kam Ocampo on 01-27-2023 Estimated GFR (MDRD) Amer 75 mL/min >60 [facility] Comment on above: GFR Calc Estimated GFR (MDRD) Non-Af Amer 62 mL/min >60 [facility] Comment on above: Non- GFR Calc Platelets bldOrdered By: Aline Ocampo on 01-27-2023 Platelets (Bld) [#/Vol] 168 10*3/uL 150-450 [facility] Serum or plasma albumin светлана urement (mass/volume)Ordered By: Kam Ocampo on 01-27-2023 Albumin [Mass/Vol] 2.4 g/dL 3.2-5.0 [facility] Serum or plasma albumin/glob ulin mass ratioOrdered By: Kam Ocampo on 01-27-2023 Albumin/Globulin [Mass ratio] 0.6 {ratio} 0.9-2.4 [facility] Serum or plasma calcium светлана urement (mass/volume)Ordered By: Kam Ocampo on 01-27-2023 Calcium [Mass/Vol] 8.5 mg/dL 8.5-10.1 [facility] Serum or plasma creatinine m easurement (mass/volume)Ordered By: Kam Ocampo on 01-27-2023 Creatinine [Mass/Vol] 0.92 mg/dL 0.55-1.02 [facility] Comment on above: The validity of the calculated GFR & GFRAA in patients over 70 years has not been determined. Clinical correlation is essential. Serum or plasma urea nitroge n measurement (mass/volume)Ordered By: Kam Ocampo on 01-27-2023 Urea nitrogen [Mass/Vol] 20 mg/dL 7-18 [facility] Thin prep Papanicolaou smear with manual screeningOrdered By: Kam Ocampo on 01-27-2023 Thin prep Papanicolaou smear with manual screening 18 U/L 15-37 [facility] Thin prep Papanicolaou smear with manual screening 3 5-15 [facility] Acid fast bacilli (AFB) cult ureOrdered By: Kam Ocampo on 12-02-2022 Mycobacterium sp identified Org specific cx Nom (Unsp spec) [facility] Thin prep Papanicolaou smear with manual screeningOrdered By: Kam Ocampo on 12-02-2022 Thin prep Papanicolaou smear with manual screening [facility] Acid fast bacilli (AFB) cult ureOrdered By: Kam Ocampo on 12-01-2022 Mycobacterium sp identified Org specific cx Nom (Unsp spec) [facility] Bacteria identified Respirat ory culture Nom (Unsp spec)Ordered By: Kam Ocampo on 12-01-2022 Respiratory Culture Diane albicans [facility] Gram stain for investigation of transfusion reactionOrdered By: Kam Ocampo on 12-01-2022 Microscopic observation Gram stain Nom (Unsp spec) [facility] Thin prep Papanicolaou smear with manual screeningOrdered By: Kam Ocampo on 12-01-2022 Thin prep Papanicolaou smear with manual screening [facility] Acid fast bacilli (AFB) cult ureOrdered By: Kam Ocampo on 11-28-2022 Mycobacterium sp identified Org specific cx Nom (Unsp spec) [facility] Qualitative QuantiFERON-TB g old in tube testOrdered By: Kam Ocampo on 11-28-2022 M. tuberculosis tuberculin stim IFN-g Ql (Bld) 0.09 IU/mL . [facility] Thin prep Papanicolaou smear with manual screeningOrdered By: Kam Ocampo on 11-28-2022 Thin prep Papanicolaou smear with manual screening [facility] Thin prep Papanicolaou smear with manual screening Comment . [facility] Comment on above: QuantiFERON-TB Gold Plus is [...] smear with manual screening 0.08 IU/mL . [facility] Thin prep Papanicolaou smear with manual screening 0.09 IU/mL . [facility] Thin prep Papanicolaou smear with manual screening > 10.00 IU/mL . [facility] Thin prep Papanicolaou smear with manual screening Negative Negative [facility] Comment on above: No response to M [...] the productionof interferon gamma. Chemiluminescence immunoassaymethodologyPerformed at: [facility] [id number] Director: Radu Leal PhD, Phone: [phone] Basophil percentageOrdered B y: Kam Ocampo on 11-10-2022 Bilirubin [Mass/Vol] 0.50 mg/dL 0.20-1.00 [facility] Comment on above: For patients on eltr ombopag therapy, use of Dimension [place] TBIL is not recommended. Chloride [Moles/Vol] 105 mmol/L 98-107 [facility] Glucose [Mass/Vol] 88 mg/dL 74-106 [facility] Potassium [Moles/Vol] 4.5 mmol/L 3.5-5.1 [facility] Protein [Mass/Vol] 6.9 g/dL 6.4-8.2 [facility] Sodium [Moles/Vol] 141 mmol/L 136-145 [facility] WBC (Bld) [#/Vol] 9.3 10*3/uL 4.4-11.0 [facility] Blood erythrocytes count (nu mber/volume)Ordered By: Kam Ocampo on 11-10-2022 RBC (Bld) [#/Vol] 3.43 10*6/uL 4.2-5.4 [facility] Blood hemoglobin measurement (mass/volume)Ordered By: Kam Ocampo on 11-10-2022 Hemoglobin (Bld) [Mass/Vol] 11.3 g/dL 12.0-15.0 [facility] Blood platelet mean volumeOr dered By: Kam Ocampo on 11-10-2022 Platelet mean volume (Bld) [Entitic vol] 9.8 fL 6.2-12.0 [facility] Determination of erythrocyte mean corpuscular volume (MCV)Ordered By: Kam Ocampo on 11-10-2022 MCV (RBC) [Entitic vol] 107.3 fL 81-99 [facility] Comment on above: Delta: 101.3 on 10/11 10/01-1730 Hematocrit Auto (Bld) [Volum e fraction]Ordered By: Kam Ocampo on 11-10-2022 Hematocrit (Bld) [Volume fraction] 36.8 % 37-47 [facility] Laboratory - Chemistry and C hemistry - challengeOrdered By: Kam Ocampo on 11-10-2022 ALP [Catalytic activity/Vol] 68 U/L 45-117 [facility] ALT [Catalytic activity/Vol] 27 U/L 13-56 [facility] CO2 [Moles/Vol] 35.0 mmol/L 21.0-32.0 [facility] Globulin (S) [Mass/Vol] 4.0 g/dL 2.2-4.2 [facility] Urea nitrogen/Creatinine [Mass ratio] 28.0 mg/mg 10-20 [facility] Laboratory - Hematology and Cell countsOrdered By: Kam Ocampo on 11-10-2022 Erythrocyte distribution width (RBC) [Entitic vol] 56.2 fL 35.1-43.9 [facility] Erythrocyte distribution width (RBC) [Ratio] 14.5 % 11.6-14.6 [facility] MCH (RBC) [Entitic mass] 32.9 pg 27.0-32.0 [facility] MCHC Auto (RBC) [Mass/Vol]Or dered By: Kam Ocampo on 11-10-2022 MCHC (RBC) [Mass/Vol] 30.7 g/dL 32-36 [facility] Comment on above: Delta: 32.8 on 11/0623-1730 No Panel InformationOrdered By: Kam Ocampo on 11-10-2022 Estimated GFR (MDRD) Amer 56 mL/min >60 [facility] Comment on above: GFR Calc Estimated GFR (MDRD) Non-Af Amer 46 mL/min >60 [facility] Comment on above: Non- GFR Calc Platelets bldOrdered By: Aline Ocampo on 11-10-2022 Platelets (Bld) [#/Vol] 225 10*3/uL 150-450 [facility] Serum or plasma albumin светлана urement (mass/volume)Ordered By: Kam Ocampo on 11-10-2022 Albumin [Mass/Vol] 2.9 g/dL 3.2-5.0 [facility] Serum or plasma albumin/glob ulin mass ratioOrdered By: Kam Ocampo on 11-10-2022 Albumin/Globulin [Mass ratio] 0.7 {ratio} 0.9-2.4 [facility] Serum or plasma calcium светлана urement (mass/volume)Ordered By: Kam Ocampo on 11-10-2022 Calcium [Mass/Vol] 9.6 mg/dL 8.5-10.1 [facility] Serum or plasma creatinine m easurement (mass/volume)Ordered By: Kam Ocampo on 11-10-2022 Creatinine [Mass/Vol] 1.18 mg/dL 0.55-1.02 [facility] Comment on above: The validity of the calculated GFR & GFRAA in patients over 70 years has not been determined. Clinical correlation is essential. Serum or plasma urea nitroge n measurement (mass/volume)Ordered By: Kam Ocampo on 11-10-2022 Urea nitrogen [Mass/Vol] 33 mg/dL 7-18 [facility] Thin prep Papanicolaou smear with manual screeningOrdered By: Kam Ocampo on 11-10-2022 Thin prep Papanicolaou smear with manual screening 19 U/L 15-37 [facility] Thin prep Papanicolaou smear with manual screening 1 5-15 [facility] Absolute lymphocyte countOrd ered By: Yandel Matute on 11-06-2022 Lymphocytes Auto (Unsp spec) [#/Vol] 2.18 10*3/uL 0.83-4.51 [facility] Basophil percentageOrdered B y: Yandel Matute on 11-06-2022 Basophil percentage 0-5 SEEN /hpf 0-5 [facility] Basophils/100 WBC (Bld) 0.4 % 0-1 [facility] Chloride [Moles/Vol] 102 mmol/L 98-107 [facility] Eosinophils/100 WBC (Bld) 1.6 % 0-5 [facility] Glucose [Mass/Vol] 99 mg/dL 74-106 [facility] Neutrophils (Bld) [#/Vol] 4.5 10*3/uL 2.0-7.7 [facility] Neutrophils/100 WBC (Bld) 60.8 % 47-70 [facility] Potassium [Moles/Vol] 4.2 mmol/L 3.5-5.1 [facility] Sodium [Moles/Vol] 137 mmol/L 136-145 [facility] WBC (Bld) [#/Vol] 7.4 10*3/uL 4.4-11.0 [facility] Basophil percentageOrdered B y: Kam Ocampo on 11-06-2022 Basophil percentage >100 SEEN /hpf 0-5 [facility] Bilirubin [Mass/Vol] 0.50 mg/dL 0.20-1.00 [facility] Comment on above: For patients on eltr ombopag therapy, use of Dimension [place] TBIL is not recommended. Chloride [Moles/Vol] 104 mmol/L 98-107 [facility] Glucose [Mass/Vol] 123 mg/dL 74-106 [facility] Comment on above: Fasting Glucose resu lt from 100 to 125 mg/dL suggests IMPAIRED HOMEOSTASIS per A.D.A. criteria. Potassium [Moles/Vol] 4.1 mmol/L 3.5-5.1 [facility] Protein [Mass/Vol] 7.8 g/dL 6.4-8.2 [facility] Sodium [Moles/Vol] 142 mmol/L 136-145 [facility] WBC (Bld) [#/Vol] 7.6 10*3/uL 4.4-11.0 [facility] Bilirubin Test strip Ql (U)O rdered By: Yandel Matute on 11-06-2022 Bilirubin Ql (U) Negative Negative [facility] Bilirubin Test strip Ql (U)O rdered By: Kam Ocampo on 11-06-2022 Bilirubin Ql (U) Negative Negative [facility] Blood erythrocytes count (nu mber/volume)Ordered By: Yandel Matute on 11-06-2022 RBC (Bld) [#/Vol] 3.19 10*6/uL 4.2-5.4 [facility] Blood erythrocytes count (nu mber/volume)Ordered By: Kam Ocampo on 11-06-2022 RBC (Bld) [#/Vol] 3.43 10*6/uL 4.2-5.4 [facility] Blood hemoglobin measurement (mass/volume)Ordered By: Yandel Matute on 11-06-2022 Hemoglobin (Bld) [Mass/Vol] 10.6 g/dL 12.0-15.0 [facility] Blood hemoglobin measurement (mass/volume)Ordered By: Kam Ocampo on 11-06-2022 Hemoglobin (Bld) [Mass/Vol] 11.4 g/dL 12.0-15.0 [facility] Blood lymphocytes/100 leukoc ytesOrdered By: Yandel Matute on 11-06-2022 Lymphocytes/100 WBC (Bld) 29.3 % 19-41 [facility] Blood monocytes/100 leukocyt esOrdered By: Yandel Matute on 11-06-2022 Monocytes/100 WBC (Bld) 7.4 % 0-10 [facility] Blood platelet mean volumeOr dered By: Yandel Matute on 11-06-2022 Platelet mean volume (Bld) [Entitic vol] 9.6 fL 6.2-12.0 [facility] Blood platelet mean volumeOr dered By: Kam Ocampo on 11-06-2022 Platelet mean volume (Bld) [Entitic vol] 9.3 fL 6.2-12.0 [facility] Culture, urineOrdered By: Dugan on 11-06-2022 Bacteria identified Cx Nom (U) Escherichia coli [facility] Bacteria identified Cx Nom (U) Escherichia coli [facility] Determination of erythrocyte mean corpuscular volume (MCV)Ordered By: Yandel Matute on 11-06-2022 MCV (RBC) [Entitic vol] 101.3 fL 81-99 [facility] Determination of erythrocyte mean corpuscular volume (MCV)Ordered By: Kam Ocampo on 11-06-2022 MCV (RBC) [Entitic vol] 102.0 fL 81-99 [facility] Hematocrit Auto (Bld) [Volum e fraction]Ordered By: Yandel Matute on 11-06-2022 Hematocrit (Bld) [Volume fraction] 32.3 % 37-47 [facility] Hematocrit Auto (Bld) [Volum e fraction]Ordered By: Kam Ocampo on 11-06-2022 Hematocrit (Bld) [Volume fraction] 35.0 % 37-47 [facility] INR in Blood by Coagulation assayOrdered By: Yandel Matute on 11-06-2022 INR Coag (Bld) [Relative time] 1.0 {INR} [facility] Ketones Test strip Ql (U)Ord ered By: Yandel Matute on 11-06-2022 Ketones Ql (U) Negative Negative [facility] Ketones Test strip Ql (U)Ord ered By: Kam Ocampo on 11-06-2022 Ketones Ql (U) Negative Negative [facility] Laboratory - Chemistry and C hemistry - challengeOrdered By: Yandel Matute on 11-06-2022 CO2 [Moles/Vol] 34.0 mmol/L 21.0-32.0 [facility] Urea nitrogen/Creatinine [Mass ratio] 23.9 mg/mg 11-28 [facility] Laboratory - Chemistry and C hemistry - challengeOrdered By: Kam Ocampo on 11-06-2022 ALP [Catalytic activity/Vol] 78 U/L 45-117 [facility] ALT [Catalytic activity/Vol] 33 U/L 13-56 [facility] CO2 [Moles/Vol] 35.0 mmol/L 21.0-32.0 [facility] Globulin (S) [Mass/Vol] 4.6 g/dL 2.2-4.2 [facility] Urea nitrogen/Creatinine [Mass ratio] 21.0 mg/mg 11-28 [facility] Laboratory - CoagulationOrde red By: Yandel Matute on 11-06-2022 aPTT Coag (Bld) [Time] 25.3 s 24.1-36.2 [facility] PT Coag (PPP) [Time] 13.1 s 11.7-14.9 [facility] Laboratory - Hematology and Cell countsOrdered By: Yandel Matute on 11-06-2022 Erythrocyte distribution width (RBC) [Entitic vol] 50.0 fL 35.1-43.9 [facility] Erythrocyte distribution width (RBC) [Ratio] 13.6 % 11.6-14.6 [facility] Immature granulocytes/100 WBC (Bld) 0.500 % 0.0-0.9 [facility] Comment on above: IG% - Immature Granu locytes (promyelocytes, myelocytes and metamyelocytes) > 1% indicates that a LEFT SHIFT is Present. MCH (RBC) [Entitic mass] 33.2 pg 27.0-32.0 [facility] Nucleated RBC/100 WBC (Bld) [Ratio] 0 % 0-5 [facility] Laboratory - Hematology and Cell countsOrdered By: Kam Ocampo on 11-06-2022 Erythrocyte distribution width (RBC) [Entitic vol] 51.1 fL 35.1-43.9 [facility] Erythrocyte distribution width (RBC) [Ratio] 13.7 % 11.6-14.6 [facility] MCH (RBC) [Entitic mass] 33.2 pg 27.0-32.0 [facility] MCHC Auto (RBC) [Mass/Vol]Or dered By: Yandel Matute on 11-06-2022 MCHC (RBC) [Mass/Vol] 32.8 g/dL - [facility] MCHC Auto (RBC) [Mass/Vol]Or dered By: Kam Ocampo on 11-06-2022 MCHC (RBC) [Mass/Vol] 32.6 g/dL 32-36 [facility] Mucus LM Ql (Urine sed)Order ed By: Yandel Matute on 11-06-2022 Mucus Ql (Urine sed) 0 SEEN /hpf [facility] Mucus LM Ql (Urine sed)Order ed By: Kam Ocampo on 11-06-2022 Mucus Ql (Urine sed) 0 SEEN /hpf [facility] Nitrite Test strip Ql (U)Ord ered By: Yandel Matute on 11-06-2022 Nitrite Ql (U) Negative Negative [facility] Nitrite Test strip Ql (U)Ord ered By: Kam Ocampo on 11-06-2022 Nitrite Ql (U) Negative Negative [facility] No Panel InformationOrdered By: Yandel Matute on 11-06-2022 Estimated Creatinine Clearance Calc 32.96 ml/min [facility] Estimated GFR (MDRD) Amer 78 mL/min >60 [facility] Comment on above: GFR Calc Estimated GFR (MDRD) Non-Af Amer 65 mL/min >60 [facility] Comment on above: Non- GFR Calc Troponin I High Sensitivity 6 pg/mL 3.0-54.0 [facility] Comment on above: Please Note: New Regi t Units and Gender Specific Reference Ranges. For more information see Policy Stat Procedure [place] High Sensitivity Troponin (TNIH) and attachments. No Panel InformationOrdered By: Kam Ocampo on 11-06-2022 Estimated GFR (MDRD) Amer 81 mL/min >60 [facility] Comment on above: GFR Calc Estimated GFR (MDRD) Non-Af Amer 67 mL/min >60 [facility] Comment on above: Non- GFR Calc Platelets bldOrdered By: Mehdi Matute on 11-06-2022 Platelets (Bld) [#/Vol] 240 10*3/uL 150-450 [facility] Platelets bldOrdered By: Aline Ocampo on 11-06-2022 Platelets (Bld) [#/Vol] 242 10*3/uL 150-450 [facility] Protein Test strip Ql (U)Ord ered By: Yandel Matute on 11-06-2022 Protein Ql (U) Negative Negative [facility] Protein Test strip Ql (U)Ord ered By: Kam Ocampo on 11-06-2022 Protein Ql (U) Negative Negative [facility] Serum or plasma albumin светлана urement (mass/volume)Ordered By: Kam Ocampo on 11-06-2022 Albumin [Mass/Vol] 3.2 g/dL 3.2-5.0 [facility] Serum or plasma albumin/glob ulin mass ratioOrdered By: Kam Ocampo on 11-06-2022 Albumin/Globulin [Mass ratio] 0.7 {ratio} 0.9-2.4 [facility] Serum or plasma calcium светлана urement (mass/volume)Ordered By: Yandel Matute on 11-06-2022 Calcium [Mass/Vol] 10.3 mg/dL 8.5-10.1 [facility] Serum or plasma calcium светлана urement (mass/volume)Ordered By: Kam Ocampo on 11-06-2022 Calcium [Mass/Vol] 10.1 mg/dL 8.5-10.1 [facility] Serum or plasma creatinine m easurement (mass/volume)Ordered By: Yandel Matute on 11-06-2022 Creatinine [Mass/Vol] 0.88 mg/dL 0.55-1.02 [facility] Comment on above: The validity of the calculated GFR & GFRAA in patients over 70 years has not been determined. Clinical correlation is essential. Serum or plasma creatinine m easurement (mass/volume)Ordered By: Kam Ocampo on 11-06-2022 Creatinine [Mass/Vol] 0.86 mg/dL 0.55-1.02 [facility] Comment on above: The validity of the calculated GFR & GFRAA in patients over 70 years has not been determined. Clinical correlation is essential. Serum or plasma urea nitroge n measurement (mass/volume)Ordered By: Yandel Matute on 11-06-2022 Urea nitrogen [Mass/Vol] 21 mg/dL 08-26 [facility] Serum or plasma urea nitroge n measurement (mass/volume)Ordered By: Kam Ocampo on 11-06-2022 Urea nitrogen [Mass/Vol] 18 mg/dL 08-26 [facility] Squamous epithelial cells de tection in urine sediment by light microscopyOrdered By: Yandel Matute on 11-06-2022 Epithelial cells.squamous LM Ql (Urine sed) 0 SEEN /hpf 5-10 [facility] Squamous epithelial cells de tection in urine sediment by light microscopyOrdered By: Kam Ocampo on 11-06-2022 Epithelial cells.squamous LM Ql (Urine sed) 0 SEEN /hpf 5-10 [facility] Thin prep Papanicolaou smear with manual screeningOrdered By: Yandel Matute on 11-06-2022 Thin prep Papanicolaou smear with manual screening 1 5-15 [facility] Thin prep Papanicolaou smear with manual screeningOrdered By: Kam Ocampo on 11-06-2022 Thin prep Papanicolaou smear with manual screening 18 U/L 15-37 [facility] Thin prep Papanicolaou smear with manual screening 3 5-15 [facility] Urine blood detectionOrdered By: Yandel Matute on 11-06-2022 RBC Ql (U) Negative Negative [facility] RBC Ql (U) 0 SEEN /hpf 0-5 [facility] Urine blood detectionOrdered By: Kam Ocampo on 11-06-2022 RBC Ql (U) 10 /ul Negative [facility] RBC Ql (U) 0 SEEN /hpf 0-5 [facility] Urine clarityOrdered By: Mehdi Matute on 11-06-2022 Clarity (U) Clear Clear [facility] Urine clarityOrdered By: Aline Ocampo on 11-06-2022 Clarity (U) Sl. Cloudy Clear [facility] Urine color determinationOrd ered By: Yandel Matute on 11-06-2022 Color (U) Yellow Yellow [facility] Urine color determinationOrd ered By: Kam Ocampo on 11-06-2022 Color (U) Yellow Yellow [facility] Urine glucose detectionOrder ed By: Yandel Matute on 11-06-2022 Glucose Ql (U) Normal mg/dl Normal [facility] Urine glucose detectionOrder ed By: Kam Ocampo on 11-06-2022 Glucose Ql (U) Normal mg/dl Normal [facility] Urine leukocyte esterase det ection by dipstickOrdered By: Yandel Matute on 11-06-2022 Leukocyte esterase Test strip Ql (U) 25 /ul Negative [facility] Urine leukocyte esterase det ection by dipstickOrdered By: Kam Ocampo on 11-06-2022 Leukocyte esterase Test strip Ql (U) 500 /ul Negative [facility] Urine pHOrdered By: Yandel butts on 11-06-2022 pH (U) 7.0 [pH] 5.0 - 8.0 [facility] Urine pHOrdered By: Kam barker on 11-06-2022 pH (U) 8.0 [pH] 5.0 - 8.0 [facility] Urine sediment bacteria coun t by microscopy (number/high power field)Ordered By: Yandel Matute on 11-06-2022 Bacteria LM.HPF (Urine sed) [#/Area] 0 /[HPF] None Seen [facility] Urine sediment bacteria coun t by microscopy (number/high power field)Ordered By: Kam Ocampo on 11-06-2022 Bacteria LM.HPF (Urine sed) [#/Area] 0 /[HPF] None Seen [facility] Urine specific gravity measu rementOrdered By: Yandel Matute on 11-06-2022 Specific gravity (U) [Rel density] 1.010 1.002-1.03 0 [facility] Urine specific gravity measu rementOrdered By: Kam Ocampo on 11-06-2022 Specific gravity (U) [Rel density] 1.010 1.002-1.03 0 [facility] Urobilinogen Auto test strip Ql (U)Ordered By: Yandel Matute on 11-06-2022 Urobilinogen Ql (U) Normal mg/dl Normal [facility] Urobilinogen Auto test strip Ql (U)Ordered By: Kam Ocampo on 11-06-2022 Urobilinogen Ql (U) Normal mg/dl Normal [facility] Basophil percentageOrdered B y: Hayden Diaz on 10-31-2022 Chloride [Moles/Vol] 108 mmol/L 98-107 [facility] Glucose [Mass/Vol] 95 mg/dL 74-106 [facility] Potassium [Moles/Vol] 3.8 mmol/L 3.5-5.1 [facility] Sodium [Moles/Vol] 141 mmol/L 136-145 [facility] WBC (Bld) [#/Vol] 7.6 10*3/uL 4.4-11.0 [facility] Blood erythrocytes count (nu mber/volume)Ordered By: Hayden Diaz on 10-31-2022 RBC (Bld) [#/Vol] 3.16 10*6/uL 4.2-5.4 [facility] Blood hemoglobin measurement (mass/volume)Ordered By: Hayden Diaz on 10-31-2022 Hemoglobin (Bld) [Mass/Vol] 10.5 g/dL 12.0-15.0 [facility] Blood platelet mean volumeOr dered By: Hayden Diaz on 10-31-2022 Platelet mean volume (Bld) [Entitic vol] 8.9 fL 6.2-12.0 [facility] Determination of erythrocyte mean corpuscular volume (MCV)Ordered By: Hayden Diaz on 10-31-2022 MCV (RBC) [Entitic vol] 103.5 fL 81-99 [facility] Hematocrit Auto (Bld) [Volum e fraction]Ordered By: Hayden Diaz on 10-31-2022 Hematocrit (Bld) [Volume fraction] 32.7 % 37-47 [facility] Laboratory - Chemistry and C hemistry - challengeOrdered By: Hayden Diaz on 10-31-2022 CO2 [Moles/Vol] 32.0 mmol/L 21.0-32.0 [facility] Urea nitrogen/Creatinine [Mass ratio] 23.8 mg/mg 10-20 [facility] Laboratory - Hematology and Cell countsOrdered By: Hayden Diaz on 10-31-2022 Erythrocyte distribution width (RBC) [Entitic vol] 51.9 fL 35.1-43.9 [facility] Erythrocyte distribution width (RBC) [Ratio] 13.4 % 11.6-14.6 [facility] MCH (RBC) [Entitic mass] 33.2 pg 27.0-32.0 [facility] MCHC Auto (RBC) [Mass/Vol]Or dered By: Hayden Diaz on 10-31-2022 MCHC (RBC) [Mass/Vol] 32.1 g/dL 32-36 [facility] No Panel InformationOrdered By: Hayden Diaz on 10-31-2022 Estimated Creatinine Clearance Calc 29.01 ml/min [facility] Estimated GFR (MDRD) Amer 99 mL/min >60 [facility] Comment on above: GFR Calc Estimated GFR (MDRD) Non-Af Amer 82 mL/min >60 [facility] Comment on above: Non- GFR Calc Platelets bldOrdered By: Yasmin Diaz on 10-31-2022 Platelets (Bld) [#/Vol] 195 10*3/uL 150-450 [facility] Serum or plasma calcium светлана urement (mass/volume)Ordered By: Hayden Diaz on 10-31-2022 Calcium [Mass/Vol] 8.6 mg/dL 8.5-10.1 [facility] Serum or plasma creatinine m easurement (mass/volume)Ordered By: Hayden Diaz on 10-31-2022 Creatinine [Mass/Vol] 0.72 mg/dL 0.55-1.02 [facility] Comment on above: The validity of the calculated GFR & GFRAA in patients over 70 years has not been determined. Clinical correlation is essential. Serum or plasma urea nitroge n measurement (mass/volume)Ordered By: Hayden Diaz on 10-31-2022 Urea nitrogen [Mass/Vol] 17 mg/dL 7-18 [facility] Thin prep Papanicolaou smear with manual screeningOrdered By: Hayden Diaz on 10-31-2022 Thin prep Papanicolaou smear with manual screening 1 5-15 [facility] Absolute lymphocyte countOrd ered By: Amalia Donahue on 10-30-2022 Lymphocytes Auto (Unsp spec) [#/Vol] 1.95 10*3/uL 0.83-4.51 [facility] Basophil percentageOrdered B y: Hayden Diaz on 10-30-2022 Basophil percentage 0 SEEN /hpf 0-5 [facility] Cholesterol [Mass/Vol] 94 mg/dL <200 [facility] Comment on above: <200 mg/dL Desirable 200-240 mg/dL Borderline >240 mg/dL High Risk Triglyceride [Mass/Vol] 72 mg/dL <199 [facility] Comment on above: The drugs N-Acetylcy steine and Metamizole may falsely depress this assay.Serum Triglycerides Reference Interval Normal <150 mg/dL Borderline high 150 - 199 mg/dL High 200 - 499 mg/dL Very High > or = 500 mg/dL Basophil percentageOrdered B y: Amalia Westelvira on 10-30-2022 Basophils/100 WBC (Bld) 0.7 % 0-1 [facility] Chloride [Moles/Vol] 103 mmol/L 98-107 [facility] Eosinophils/100 WBC (Bld) 2.1 % 0-5 [facility] Glucose [Mass/Vol] 107 mg/dL 74-106 [facility] Comment on above: Fasting Glucose resu lt from 100 to 125 mg/dL suggests IMPAIRED HOMEOSTASIS per A.D.A. criteria. Neutrophils (Bld) [#/Vol] 3.2 10*3/uL 2.0-7.7 [facility] Neutrophils/100 WBC (Bld) 55.1 % 47-70 [facility] Potassium [Moles/Vol] 4.3 mmol/L 3.5-5.1 [facility] Comment on above: Slight Hemolysis, Re sult may be falsely increased. Sodium [Moles/Vol] 136 mmol/L 136-145 [facility] WBC (Bld) [#/Vol] 5.8 10*3/uL 4.4-11.0 [facility] Bilirubin Test strip Ql (U)O rdered By: Hayden Diaz on 10-30-2022 Bilirubin Ql (U) Negative Negative [facility] Blood erythrocytes count (nu mber/volume)Ordered By: Amalia Donahue on 10-30-2022 RBC (Bld) [#/Vol] 3.10 10*6/uL 4.2-5.4 [facility] Blood hemoglobin measurement (mass/volume)Ordered By: Amalia Donahue on 10-30-2022 Hemoglobin (Bld) [Mass/Vol] 10.1 g/dL 12.0-15.0 [facility] Blood lymphocytes/100 leukoc ytesOrdered By: Amalia Donahue on 10-30-2022 Lymphocytes/100 WBC (Bld) 33.7 % 19-41 [facility] Blood monocytes/100 leukocyt esOrdered By: Amalia Donahue on 10-30-2022 Monocytes/100 WBC (Bld) 8.1 % 0-10 [facility] Blood platelet mean volumeOr dered By: Amalia Donahue on 10-30-2022 Platelet mean volume (Bld) [Entitic vol] 9.2 fL 6.2-12.0 [facility] Determination of erythrocyte mean corpuscular volume (MCV)Ordered By: Amalia Donahue on 10-30-2022 MCV (RBC) [Entitic vol] 103.9 fL 81-99 [facility] Hematocrit Auto (Bld) [Volum e fraction]Ordered By: Amalia Donahue on 10-30-2022 Hematocrit (Bld) [Volume fraction] 32.2 % 37-47 [facility] INR in Blood by Coagulation assayOrdered By: Amalia Donahue on 10-30-2022 INR Coag (Bld) [Relative time] 1.0 {INR} [facility] Ketones Test strip Ql (U)Ord ered By: Hayden Diaz on 10-30-2022 Ketones Ql (U) Negative Negative [facility] Laboratory - Chemistry and C hemistry - challengeOrdered By: Amalia Donahue on 10-30-2022 CO2 [Moles/Vol] 32.0 mmol/L 21.0-32.0 [facility] Urea nitrogen/Creatinine [Mass ratio] 27.0 mg/mg 10-20 [facility] Laboratory - CoagulationOrde red By: Amalia Donahue on 10-30-2022 aPTT Coag (Bld) [Time] 27.1 s 24.1-36.2 [facility] PT Coag (PPP) [Time] 13.2 s 11.7-14.9 [facility] Laboratory - Hematology and Cell countsOrdered By: Amalia Donahue on 10-30-2022 Erythrocyte distribution width (RBC) [Entitic vol] 52.5 fL 35.1-43.9 [facility] Erythrocyte distribution width (RBC) [Ratio] 13.6 % 11.6-14.6 [facility] Immature granulocytes/100 WBC (Bld) 0.300 % 0.0-0.9 [facility] Comment on above: IG% - Immature Granu locytes (promyelocytes, myelocytes and metamyelocytes) > 1% indicates that a LEFT SHIFT is Present. MCH (RBC) [Entitic mass] 32.6 pg 27.0-32.0 [facility] Nucleated RBC/100 WBC (Bld) [Ratio] 0 % 0-5 [facility] MCHC Auto (RBC) [Mass/Vol]Or dered By: Amalia Donahue on 10-30-2022 MCHC (RBC) [Mass/Vol] 31.4 g/dL 32-36 [facility] Mucus LM Ql (Urine sed)Order ed By: Hayden Diaz on 10-30-2022 Mucus Ql (Urine sed) 0 SEEN /hpf [facility] Nitrite Test strip Ql (U)Ord ered By: Hayden Diaz on 10-30-2022 Nitrite Ql (U) Negative Negative [facility] No Panel InformationOrdered By: Amalia Donahue on 10-30-2022 Estimated Creatinine Clearance Calc 34.02 ml/min [facility] Estimated GFR (MDRD) Amer 81 mL/min >60 [facility] Comment on above: GFR Calc Estimated GFR (MDRD) Non-Af Amer 67 mL/min >60 [facility] Comment on above: Non- GFR Calc Troponin I High Sensitivity 5 pg/mL 3.0-54.0 [facility] Comment on above: Please Note: New Regi t Units and Gender Specific Reference Ranges. For more information see Policy Stat Procedure [place] High Sensitivity Troponin (TNIH) and attachments. Platelets bldOrdered By: Loan Donahue on 10-30-2022 Platelets (Bld) [#/Vol] 195 10*3/uL 150-450 [facility] Protein Test strip Ql (U)Ord ered By: Hayden Diaz on 10-30-2022 Protein Ql (U) Negative Negative [facility] Serum or plasma calcium светлана urement (mass/volume)Ordered By: Amalia Donahue on 10-30-2022 Calcium [Mass/Vol] 8.7 mg/dL 8.5-10.1 [facility] Serum or plasma cholesterol in HDL measurement (mass/volume)Ordered By: Hayden Diaz on 10-30-2022 Cholesterol in HDL [Mass/Vol] 33 mg/dL >40 [facility] Comment on above: The drugs N-Acetylcy steine and Metamizole may falsely depress this assay. Reference Range HDL <40 mg/dL Low HDL Cholesterol HDL >or= 60 mg/dL High HDL Cholesterol Serum or plasma cholesterol in VLDL measurement (mass/volume)Ordered By: Hayden Diaz on 10-30-2022 Cholesterol in VLDL [Mass/Vol] 14 mg/dL 5-40 [facility] Serum or plasma creatinine m easurement (mass/volume)Ordered By: Amalia Donahue on 10-30-2022 Creatinine [Mass/Vol] 0.85 mg/dL 0.55-1.02 [facility] Comment on above: The validity of the calculated GFR & GFRAA in patients over 70 years has not been determined. Clinical correlation is essential. Serum or plasma low density lipoprotein (LDL) cholesterol measurement (mass/volume)Ordered By: Hayden Diaz on 10-30-2022 Cholesterol in LDL [Mass/Vol] 47 mg/dL 0-130 [facility] Serum or plasma urea nitroge n measurement (mass/volume)Ordered By: Amalia Donahue on 10-30-2022 Urea nitrogen [Mass/Vol] 23 mg/dL 7-18 [facility] Squamous epithelial cells de tection in urine sediment by light microscopyOrdered By: Hayden Diaz on 10-30-2022 Epithelial cells.squamous LM Ql (Urine sed) 0 SEEN /hpf 5-10 [facility] Thin prep Papanicolaou smear with manual screeningOrdered By: Amalia Donahue on 10-30-2022 Thin prep Papanicolaou smear with manual screening 1 5-15 [facility] Urine blood detectionOrdered By: Hayden Diaz on 10-30-2022 RBC Ql (U) Negative Negative [facility] RBC Ql (U) 0 SEEN /hpf 0-5 [facility] Urine clarityOrdered By: Yasmin Diaz on 10-30-2022 Clarity (U) Clear Clear [facility] Urine color determinationOrd ered By: Hayden Diaz on 10-30-2022 Color (U) Yellow Yellow [facility] Urine glucose detectionOrder ed By: Hayden Diaz on 10-30-2022 Glucose Ql (U) Normal mg/dl Normal [facility] Urine leukocyte esterase det ection by dipstickOrdered By: Hayden Diaz on 10-30-2022 Leukocyte esterase Test strip Ql (U) Negative Negative [facility] Urine pHOrdered By: Reginaldo Diaz on 10-30-2022 pH (U) 8.0 [pH] 5.0 - 8.0 [facility] Urine sediment bacteria coun t by microscopy (number/high power field)Ordered By: Hayden Diaz on 10-30-2022 Bacteria LM.HPF (Urine sed) [#/Area] 0 /[HPF] None Seen [facility] Urine specific gravity measu rementOrdered By: Hayden Diaz on 10-30-2022 Specific gravity (U) [Rel density] 1.010 1.002-1.03 0 [facility] Urobilinogen Auto test strip Ql (U)Ordered By: Hayden Diaz on 10-30-2022 Urobilinogen Ql (U) Normal mg/dl Normal [facility] Whole blood hemoglobin A1c/t otal hemoglobin ratio (mass fraction)Ordered By: Hayden Diaz on 10-30-2022 HbA1c (Bld) [Mass fraction] 5.5 % 3.8-5.6 [facility] Comment on above: Normal < 5.7 % [...] mouth daily Electrocardiogram 12 Lead; Status:Active; Requested for:[id number]; Osteoporosis Stop: Oscal 500/200 D-3 TABS Unlinked [...] She is now under going rehab in [facility] and is now on continuous O2. [...] by Problem List Migration; 2012-04-06; Moved to [facility] Jan 01 2013 4:07PM Medicare annual wellness [...] (V13.4) History of Atherosclerotic heart disease of [place] coronary artery with unspecified angina pectoris (414.01,413.9) [...] by Proble (more content not included)... Normal HandInScan BASIC METABOLIC PANELon 09-0 Anion gap [Moles/Vol] -2 mmol/L Low 3-13 [facility] Comment on above: Performed By: #### L [id number] ####Melter Supervisor [employer] Furnace: REINA FARIA ([phone])[facility] ([facility])[address] [place] [id number] [place] [address] Calcium [Mass/Vol] 8.5 mg/dL Normal 8.4-10.4 [facility] Comment on above: Performed By: #### L [id number] ####Melter Supervisor [employer] Furn[employer]: REINA FARIA ([phone])[facility] ([facility])[address] Chloride [Moles/Vol] 102 mmol/L Normal 98-[address] [facility] Comment on above: Performed By: #### L [id number] ####Melter Supervisor [employer] Furnace: REINA FARIA ([phone])[facility] [place] ([facility])[address] CO2 [Moles/Vol] 37 mmol/L High 22-30 [facility] Comment on above: Performed By: #### L [id number] ####Melter Supervisor Oxygen Furnace: REINA FARIA ([phone])[facility] ([facility])[address] Creatinine [Mass/Vol] 0.71 mg/dL Normal 0.52-1.04 [facility] Comment on above: Performed By: #### L [id number] ####Melter Supervisor [employer]xygen Furnace: REINA FARIA ([phone])[facility] [place] ([facility])[address] GLOMERULAR FILTRATION RATE ML/MIN/1.73 SQ M.PREDICTED 82.9 mL/min/1.73m*2 Normal >60.0 [facility] Comment on above: Result Comment: Calc ulation based on the Chronic Kidney Disease Epidemiology Collaboration (CKD-EPI) equation refit without adjustment for race Performed By: #### L [id number] ####Melter Supervisor Oxygen Furnace: REINA FARIA ([phone])[facility] [place] ([facility])[address] Glucose [Mass/Vol] 99 mg/dL Normal 70-100 [facility] Comment on above: Performed By: #### L [id number] ####Melter Supervisor Oxygen Furnace: REINA FARIA ([phone])[facility] [place] ([facility])[address] Potassium [Moles/Vol] 4.0 mmol/L Normal 3.5-5.1 [facility] Comment on above: Performed By: #### L [id number] ####Melter Supervisor Oxygen Furnace: REINA FARIA ([phone])[facility] ([facility])[address] Sodium [Moles/Vol] 137 mmol/L Normal 135-145 [facility] Comment on above: Performed By: #### L [id number] ####Melter Supervisor [employer] Furnace: REINA PEREZDayaGREGORY ([phone])[facility] ([facility])[address] Urea nitrogen [Mass/Vol] 15 mg/dL Normal 7-17 [facility] Comment on above: Performed By: #### L [id number] ####Melter Supervisor [employer] Furnace: REINA PEREZDONNY ([phone])[facility] ([facility])[address] Basic metabolic 1998 panelon 10-16-2022 Anion gap [Moles/Vol] -2 mmol/L Low 3 - 13 mmol/L [facility] Calcium [Mass/Vol] 8.5 mg/dL 8.4 - 10. 4 mg/dL [facility] Chloride [Moles/Vol] 102 mmol/L 98 - 10 7 mmol/L [facility] CO2 [Moles/Vol] 37 mmol/L High 22 - 30 mmol/L [facility] Creatinine [Mass/Vol] 0.71 mg/dL 0.52 - 1.04 mg/dL [facility] GFR/1.73 sq M.predicted MDRD (S/P/Bld) [Vol rate/Area] 82.9 mL/min/{1.73_m2} - PINF [facility] Comment on above: Calculation based on the Chronic Kidney Disease Epidemiology Collaboration (CKD-EPI) equation refit without adjustment for race Glucose [Mass/Vol] 99 mg/dL 70 - 100 mg/dL [facility] Interpretation and review of laboratory results Abnormal [facility] Potassium [Moles/Vol] 4.0 mmol/L 3.5 - 5.1 mmol/L [facility] Sodium [Moles/Vol] 137 mmol/L 135 - 145 mmol/L [facility] Urea nitrogen [Mass/Vol] 15 mg/dL 7 - 17 mg/dL [facility] CARECOORDon 10-16-2022 [facility] Patient Choice Patient Name: KATHERINE JUDGE Date of : 1935 All Providers Sent Referral Name: [facility] Phone: [phone] Address: [address] [place] [address] Name: [place] [facility] Phone: [phone] Address: [address] [place] [address] Name: [facility] Address: [address] [place] [address] Normal [facility] Discharge med list transmitted to [facility] via Careport per [facility] request. [id number] was entered into [employer] for the SNF- Facility is aware. Normal [facility] CBC W Auto Differential pane l (Bld)on 10-16-2022 Basophils (Bld) [#/Vol] 0.0 10*3/uL 0.0 - 0.2 10*3/uL [facility] Basophils/100 WBC (Bld) 0.8 % 0.0 - 2.0 % [facility] Eosinophils (Bld) [#/Vol] 0.2 10*3/uL 0.0 - 0.5 10*3/uL [facility] Eosinophils/100 WBC (Bld) 4.6 % 1.0 - 6.0 % [facility] Erythrocyte distribution width (RBC) [Ratio] 13.4 % 11.5 - 14.5 % [facility] Hematocrit (Bld) [Volume fraction] 32.8 % Low 35.0 - 47.0 % [facility] Hemoglobin (Bld) [Mass/Vol] 11.1 g/dL Low 11.7 - 16.0 g/dL [facility] Interpretation and review of laboratory results Abnormal [facility] Lymphocytes (Bld) [#/Vol] 1.5 10*3/uL 1.0 - 4.3 10*3/uL [facility] Lymphocytes/100 WBC (Bld) 28.1 % 20.0 - 40.0 % [facility] MCH (RBC) [Entitic mass] 34.3 pg High 26.0 - 34.0 pg [facility] MCHC (RBC) [Mass/Vol] 33.8 % 32.0 - 36.0 % [facility] MCV (RBC) [Entitic vol] 101.5 fL High 80.0 - 98.0 fL [facility] Monocytes (Bld) [#/Vol] 0.5 10*3/uL 0.0 - 0.8 10*3/uL [facility] Monocytes/100 WBC (Bld) 9.7 % 2.0 - 10.0 % [facility] Neutrophils (Bld) [#/Vol] 3.1 10*3/uL 1.8 - 7.0 10*3/uL [facility] Neutrophils/100 WBC (Bld) 56.8 % 40.0 - 80.0 % [facility] Nucleated RBC/100 WBC (Bld) [Ratio] 0.0 % [facility] Platelet mean volume (Bld) [Entitic vol] 6.9 fL Low 7.4 - 12.4 fL [facility] Platelets (Bld) [#/Vol] 232 10*3/uL 140 - 440 10*3/uL [facility] RBC (Bld) [#/Vol] 3.23 10*6/uL Low 3.8 - 5.20 10*6/uL [facility] WBC (Bld) [#/Vol] 5.5 10*3/uL 3.6 - 10.7 10*3/uL [facility] CBC WITH AUTO DIFFERENTIALon 10-16-2022 Basophils (Bld) [#/Vol] 0.0 10*3/uL Normal 0.0-0.2 [facility] Comment on above: Performed By: #### L [id number] #### Melter Supervisor [employer] Furn[employer]: REINA FARIA ([id number]) [facility] ([facility]) [address] Basophils/100 WBC (Bld) 0.8 % Normal 0.0-2.0 [facility] Comment on above: Performed By: #### L [id number] #### Melter Supervisor Oxygen Furnace: REINA FARIA ([phone]) [facility] ([facility]) [address] Eosinophils (Bld) [#/Vol] 0.2 10*3/uL Normal 0.0-0.5 [facility] Comment on above: Performed By: #### L [id number] #### Melter Supervisor Oxygen Furnace: REINA FARIA ([phone]) [facility] [place] ([facility]) [address] Eosinophils/100 WBC (Bld) 4.6 % Normal 1.0-6.0 [facility] Comment on above: Performed By: #### L [id number] #### Melter Supervisor Oxygen Furnace: REINA FARIA ([id number]) [facility] [place] ([facility]) [address] Erythrocyte distribution width (RBC) [Ratio] 13.4 % Normal 11.5-14.5 [facility] Comment on above: Performed By: #### L [id number] #### Melter Supervisor [employer]xygen Furnace: REINA FARIA ([phone]) [facility] [place] ([facility]) [address] ERYTHROCYTE MEAN CORPUSCULAR HEMOGLOBIN CONCENTRATION (G/DL) BY AUTOMATED 33.8 % Normal 32.0-36.0 [facility] Comment on above: Performed By: #### L [id number] #### Melter Supervisor Oxygen Furnace: REINA FARIA ([phone]) [facility] [place] ([facility]) [address] Hematocrit (Bld) [Volume fraction] 32.8 % Low 35.0-47.0 [facility] Comment on above: Performed By: #### L [id number] #### Melter Supervisor Oxygen Furnace: REINA FARIA ([id number]) [facility] [place] ([facility]) [address] Hemoglobin (Bld) [Mass/Vol] 11.1 g/dL Low 11.7-16.0 [facility] Comment on above: Performed By: #### L [id number] #### Melter Supervisor Oxygen Furnace: REINA FARIA ([id number]) [facility] [place] ([facility]) [address] Lymphocytes (Bld) [#/Vol] 1.5 10*3/uL Normal 1.0-4.3 [facility] Comment on above: Performed By: #### L [id number] #### Melter Supervisor Oxygen Furnace: REINA FARIA ([phone]) [facility] ([facility]AB) [address] Lymphocytes/100 WBC (Bld) 28.1 % Normal 20.0-40.0 [facility] Comment on above: Performed By: #### L [id number] #### Melter Supervisor Oxygen Furnace: REINA FARIA ([id number]) [facility] ([facility]) [address] MCH (RBC) [Entitic mass] 34.3 pg High 26.0-34.0 [facility] Comment on above: Performed By: #### L [id number] #### Melter Supervisor Oxygen Furnace: REINA FARIA ([id number]) [facility] [address] MCV (RBC) [Entitic vol] 101.5 fL High 80.0-98.0 [facility] Comment on above: Performed By: #### L [id number] #### Melter Supervisor Oxygen Furnace: REINA FARIA ([id number]) [facility] [address] Monocytes (Bld) [#/Vol] 0.5 10*3/uL Normal 0.0-0.8 [facility] Comment on above: Performed By: #### L [id number] #### Melter Supervisor Oxygen Furnace: REINA FARIA ([id number]) [facility] ([facility]) [address] [place] [address] [place] Monocytes/100 WBC (Bld) 9.7 % Normal 2.0-10.0 [facility] Comment on above: Performed By: #### L [id number] #### Melter Supervisor Oxygen Furnace: REINA FARIA ([id number]) [facility] [address] [place] [address] [place] Neutrophils (Bld) [#/Vol] 3.1 10*3/uL Normal 1.8-7.0 [facility] Comment on above: Performed By: #### L [id number] #### Melter Supervisor Oxygen Furnace: REINA FARIA ([id number]) [facility] [place] ([facility]) [address] Neutrophils/100 WBC (Bld) 56.8 % Normal 40.0-80.0 [facility] Comment on above: Performed By: #### L [id number] #### Melter Supervisor Oxygen Furnace: REINA FARIA ([phone]) [facility] [address] [place] [address] [place] NRBC (PER 100 WBCS) BY AUTOMATED COUNT 0.0 /100 WBCs Normal 0.0-2.0 [facility] Comment on above: Performed By: #### L [id number] #### Melter Supervisor Oxygen Furnace: REINA FARIA ([id number]) [facility] ([facility]) [address] [place] [address] [place] Platelet mean volume (Bld) [Entitic vol] 6.9 fL Low 7.4-12.4 [facility] Comment on above: Performed By: #### L [id number] #### Melter Supervisor Oxygen Furnace: REINA FARIA ([id number]) [facility] ([facility]) [address] [place] [address] [place] PLATELETS (10*3/UL) IN BLOOD AUTOMATED COUNT 232 10*3/uL Normal 140-440 [facility] Comment on above: Performed By: #### L [id number] #### Melter Supervisor Oxygen Furnace: REINA FARIA ([id number]) [facility] ([facility] [address] [place] [address] [place] RBC (Bld) [#/Vol] 3.23 10*6/uL Low 3.8-5.20 [facility] Comment on above: Performed By: #### L [id number] #### Melter Supervisor Oxygen Furnace: REINA FARIA ([id number]) [facility] ([facility] [address] [place] [address] [place] WBC (Bld) [#/Vol] 5.5 10*3/uL Normal 3.6-10.7 [facility] Comment on above: Performed By: #### L [id number] #### Melter Supervisor Oxygen Furnace: REINA FARIA ([phone]) [facility] ([facility]) [address] SARS-CoV-2 (COVID-19) Ag IA. rapid Ql (Resp)Ordered By: Lala Barber on 10-16-2022 Interpretation and review of laboratory results Normal [facility] SARS-CoV-2 AntigenOrdered By : Lala Barber on 10-16-2022 SARS-CoV-2 (COVID-19) Ag IA.rapid Ql (Resp) Negative Negative [facility] Comment on above: A negative result do es not rule out the possibility of SARS-CoV-2 infection. NAAT-based methods should be considered for symptomatic patients presenting greater than seven days after onset of symptoms. Method: Lateral flow immunoassay. Fact sheets for healthcare providers and patients can be found at the following sites: https://www.[place].gov/media/234995/download https://www.[place].gov/media/472297/download Basic metabolic 1998 panelon 10-15-2022 Anion gap [Moles/Vol] 1 mmol/L Low 3 - 13 mmol/L [facility] Calcium [Mass/Vol] 8.3 mg/dL Low 8.4 - 10. 4 mg/dL [facility] Chloride [Moles/Vol] 103 mmol/L 98 - 10 7 mmol/L [facility] CO2 [Moles/Vol] 35 mmol/L High 22 - 30 mmol/L [facility] Creatinine [Mass/Vol] 0.61 mg/dL 0.52 - 1.04 mg/dL [facility] GFR/1.73 sq M.predicted MDRD (S/P/Bld) [Vol rate/Area] 87.2 mL/min/{1.73_m2} - PINF [facility] Comment on above: Calculation based on the Chronic Kidney Disease Epidemiology Collaboration (CKD-EPI) equation refit without adjustment for race Glucose [Mass/Vol] 106 mg/dL High 70 - 100 mg/dL [facility] Interpretation and review of laboratory results Abnormal [facility] Potassium [Moles/Vol] 4.2 mmol/L 3.5 - 5.1 mmol/L [facility] Sodium [Moles/Vol] 140 mmol/L 135 - 145 mmol/L [facility] Urea nitrogen [Mass/Vol] 11 mg/dL 7 - 17 mg/dL [facility] CARECOORDon 10-15-2022 MARRY Spoke with Lesley at [facility] & they can accept pt on 10/16. Notified pt & she asked [facility] to follow up with her son. Notified son & he is agreeable.Notified attending, RN & LINING STUFFER via secure chat. Normal [facility] CBC W Auto Differential pane l (Bld)on 10-15-2022 Basophils (Bld) [#/Vol] 0.0 10*3/uL 0.0 - 0.2 10*3/uL [facility] Basophils/100 WBC (Bld) 0.6 % 0.0 - 2.0 % [facility] Eosinophils (Bld) [#/Vol] 0.2 10*3/uL 0.0 - 0.5 10*3/uL [facility] Eosinophils/100 WBC (Bld) 2.2 % 1.0 - 6.0 % [facility] Erythrocyte distribution width (RBC) [Ratio] 13.6 % 11.5 - 14.5 % [facility] Hematocrit (Bld) [Volume fraction] 32.4 % Low 35.0 - 47.0 % [facility] Hemoglobin (Bld) [Mass/Vol] 10.8 g/dL Low 11.7 - 16.0 g/dL [facility] Interpretation and review of laboratory results Abnormal [facility] Lymphocytes (Bld) [#/Vol] 1.2 10*3/uL 1.0 - 4.3 10*3/uL [facility] Lymphocytes/100 WBC (Bld) 17.3 % Low 20.0 - 40.0 % [facility] MCH (RBC) [Entitic mass] 34.1 pg High 26.0 - 34.0 pg [facility] MCHC (RBC) [Mass/Vol] 33.5 % 32.0 - 36.0 % [facility] MCV (RBC) [Entitic vol] 101.6 fL High 80.0 - 98.0 fL [facility] Monocytes (Bld) [#/Vol] 0.6 10*3/uL 0.0 - 0.8 10*3/uL [facility] Monocytes/100 WBC (Bld) 8.5 % 2.0 - 10.0 % [facility] Neutrophils (Bld) [#/Vol] 5.0 10*3/uL 1.8 - 7.0 10*3/uL [facility] Neutrophils/100 WBC (Bld) 71.4 % 40.0 - 80.0 % [facility] Nucleated RBC/100 WBC (Bld) [Ratio] 0.0 % [facility] Platelet mean volume (Bld) [Entitic vol] 7.0 fL Low 7.4 - 12.4 fL [facility] Platelets (Bld) [#/Vol] 223 10*3/uL 140 - 440 10*3/uL [facility] RBC (Bld) [#/Vol] 3.18 10*6/uL Low 3.8 - 5.20 10*6/uL [facility] WBC (Bld) [#/Vol] 7.1 10*3/uL 3.6 - 10.7 10*3/uL [facility] Progress Noteon 10-15-2022 Progress Note [...] assess Fluid Accumulation: No significant fluid accumulation Foreign Language Interpreter Strength: Not Performed Nutrition Assessment: Pt is very pleasant, appeared in no distress this afternoon with visitor at bedside. Pt's diet was advanced to solids today- GI [facility], low fiber. Pt reported that she ordered [...] (kg): 49.4 kg Total Energy Requirements (kcals/day): 6946-6882 (30-35 kcal/kg CBW) Weight Used for Protein [...] 110# UBW) % Weight Change (Calculated): -4.5 [place] Body Weight (lbs) (Calculated): 100 lbs [place] Body Weight (Kg) (Calculated): 45 kg % [place] Body Weight (Calculated): 105 % BMI (kg/m2) [...] Oral Nutrition Supplement Brittni Javed RD Contact: *[phone] or via Secure Chat Normal [facility] Basic metabolic 1998 panelon 10-14-2022 Anion gap [Moles/Vol] -1 mmol/L Low 3 - 13 mmol/L [facility] Calcium [Mass/Vol] 8.0 mg/dL Low 8.4 - 10. 4 mg/dL [facility] Chloride [Moles/Vol] 108 mmol/L High 98 - 10 7 mmol/L [facility] CO2 [Moles/Vol] 33 mmol/L High 22 - 30 mmol/L [facility] Creatinine [Mass/Vol] 0.71 mg/dL 0.52 - 1.04 mg/dL [facility] GFR/1.73 sq M.predicted MDRD (S/P/Bld) [Vol rate/Area] 82.9 mL/min/{1.73_m2} - PINF [facility] Comment on above: Calculation based on the Chronic Kidney Disease Epidemiology Collaboration (CKD-EPI) equation refit without adjustment for race Glucose [Mass/Vol] 92 mg/dL 70 - 100 mg/dL [facility] Interpretation and review of laboratory results Abnormal [facility] Potassium [Moles/Vol] 4.2 mmol/L 3.5 - 5.1 mmol/L [facility] Sodium [Moles/Vol] 139 mmol/L 135 - 145 mmol/L [facility] Urea nitrogen [Mass/Vol] 15 mg/dL 7 - 17 mg/dL [facility] CARECOORDon 10-14-2022 [facility] Care Managment Initi al Assessment Date: 10/14/2022 Patient Name: Katherine Judge : 1935 Patient Information Source of Information: Patient Cognition/Language: WFL - Within Functional Limits Permission given to speak with patient telephone service representative/caregiver as indicated: Yes (Ganga Judge, son, ) Confirmation of Payer with patient/family: Yes Payer Name: Medicare [place]: No (Spouse is a . Made referral [...] Living Prescription Coverage: Yes Pharmacy Used: [facility] in [place] Medication Management: Independent Transportation/Shopping: Independent Transportation Mode: [...] Additional Information: Chart reviewed. Patient admitted to [facility] for treatment of Proctocolitis. Full liquid diet. PT/OT recommends SNF. Met with patient at bedside. Explained role. She is very pleasant. 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 Reports her son is helpful and lives 20 minutes away. Independent with adls. She does not drive. +PCP, +RX cov, +DME. Discussed SNF. Patient interested. But, wants to discuss with son first. Served Medicare Choice listing. No insurance authorization required to admit to SNF. DC plan: TBD Home with Home care vs SNF Tasked RAGINI perez to follow Roberta Whitney RN Normal [facility] CBC W Auto Differential pane l (Bld)Ordered By: Chaya Cook on 10-14-2022 Basophils (Bld) [#/Vol] 0.1 10*3/uL 0.0 - 0.2 10*3/uL [facility] Basophils/100 WBC (Bld) 1.0 % 0.0 - 2.0 % [facility] Eosinophils (Bld) [#/Vol] 0.2 10*3/uL 0.0 - 0.5 10*3/uL [facility] Eosinophils/100 WBC (Bld) 3.3 % 1.0 - 6.0 % [facility] Erythrocyte distribution width (RBC) [Ratio] 13.4 % 11.5 - 14.5 % [facility] Hematocrit (Bld) [Volume fraction] 31.0 % Low 35.0 - 47.0 % [facility] Hemoglobin (Bld) [Mass/Vol] 10.4 g/dL Low 11.7 - 16.0 g/dL [facility] Interpretation and review of laboratory results Abnormal [facility] Lymphocytes (Bld) [#/Vol] 1.4 10*3/uL 1.0 - 4.3 10*3/uL [facility] Lymphocytes/100 WBC (Bld) 22.5 % 20.0 - 40.0 % [facility] MCH (RBC) [Entitic mass] 34.3 pg High 26.0 - 34.0 pg [facility] MCHC (RBC) [Mass/Vol] 33.7 % 32.0 - 36.0 % [facility] MCV (RBC) [Entitic vol] 101.5 fL High 80.0 - 98.0 fL [facility] Monocytes (Bld) [#/Vol] 0.6 10*3/uL 0.0 - 0.8 10*3/uL [facility] Monocytes/100 WBC (Bld) 9.9 % 2.0 - 10.0 % [facility] Neutrophils (Bld) [#/Vol] 4.0 10*3/uL 1.8 - 7.0 10*3/uL [facility] Neutrophils/100 WBC (Bld) 63.3 % 40.0 - 80.0 % [facility] Nucleated RBC/100 WBC (Bld) [Ratio] 0.0 % [facility] Platelet mean volume (Bld) [Entitic vol] 7.0 fL Low 7.4 - 12.4 fL [facility] Platelets (Bld) [#/Vol] 213 10*3/uL 140 - 440 10*3/uL [facility] RBC (Bld) [#/Vol] 3.05 10*6/uL Low 3.8 - 5.20 10*6/uL [facility] WBC (Bld) [#/Vol] 6.3 10*3/uL 3.6 - 10.7 10*3/uL [facility] Progress Noteon 10-14-2022 Progress Note Occupational Therapy Facility/Department: [facility] 2E Occupational Therapy Initial Evaluation NAME: Katherine Judge : 1935 Date of Service: 10/14/2022 Discharge Recommendations: Fdc Facility OT Equipment Recommendations Equipment Needed: No [...] assistance Functional Mobility Comments: Pt ambualting with MENTAL HYGIENE CONSULTANT and min A for balance short distance to/from [facility] [place]. No true LOB noted however pt demo [...] LE Dress (more content not included)... Normal [facility] XR Abdomen Single viewon FINDINGS/IMPRESSION: Limitations: Somewhat [...] Electronically Signed Date/Time: 10/14/2022 12:15 PM EDT [facility]IOLOGY [facility] Patient Name: KATHERINE SIMON : 1935 Exam Date/Time: 10/14/2022 08:50 Procedure: XR ABDOMEN 1 VIEW Ordering Provider: VINES JEFFREY Reason For Exam: CONSTIPATION CLINICAL INDICATION: Constipation. TECHNIQUE: AP view of the abdomen COMPARISON: Chest radiographs previous day, CT 10/10/2022 [facility] EMERG[facility]PART[facility] RADIOLOGY SYSTEM Frances Norton MD - 10/14/2022 [...] Electronically Signed Date/Time: 10/14/2022 12:15 PM EDT [facility] Radiology Study observation (narrative) [facility] XR Abdomen Single viewOrdere d By: Frances Norton on 10-14-2022 [facility] Work Phone: Bacteria identified Aer cx N om (Lower resp)Ordered By: Tobi Lim on 10-13-2022 Gram Stain Result Moderate Epithelial cells per low power field Abnormal [facility] Gram Stain Result Few Polymorphonuclea r leukocytes per low power field Abnormal [facility] Gram Stain Result Negative Abnormal [facility] Interpretation and review of laboratory results Abnormal [facility] Basic metabolic 1998 panelon 10-13-2022 Anion gap [Moles/Vol] 1 mmol/L Low 3 - 13 mmol/L [facility] Calcium [Mass/Vol] 8.2 mg/dL Low 8.4 - 10. 4 mg/dL [facility] Chloride [Moles/Vol] 110 mmol/L High 98 - 10 7 mmol/L [facility] CO2 [Moles/Vol] 28 mmol/L 22 - 30 mmol/L [facility] Creatinine [Mass/Vol] 0.90 mg/dL 0.52 - 1.04 mg/dL [facility] GFR/1.73 sq M.predicted MDRD (S/P/Bld) [Vol rate/Area] 62.4 mL/min/{1.73_m2} - PINF [facility] Comment on above: Calculation based on the Chronic Kidney Disease Epidemiology Collaboration (CKD-EPI) equation refit without adjustment for race Glucose [Mass/Vol] 95 mg/dL 70 - 100 mg/dL [facility] Interpretation and review of laboratory results Abnormal [facility] Potassium [Moles/Vol] 4.5 mmol/L 3.5 - 5.1 mmol/L [facility] Sodium [Moles/Vol] 138 mmol/L 135 - 145 mmol/L [facility] Urea nitrogen [Mass/Vol] 20 mg/dL High 7 - 17 mg/dL [facility] CBC W Auto Differential pane l (Bld)Ordered By: Va Joe on 10-13-2022 Basophils (Bld) [#/Vol] 0.0 10*3/uL 0.0 - 0.2 10*3/uL [facility] Basophils/100 WBC (Bld) 0.4 % 0.0 - 2.0 % [facility] Eosinophils (Bld) [#/Vol] 0.2 10*3/uL 0.0 - 0.5 10*3/uL [facility] Eosinophils/100 WBC (Bld) 2.4 % 1.0 - 6.0 % [facility] Erythrocyte distribution width (RBC) [Ratio] 13.8 % 11.5 - 14.5 % [facility] Hematocrit (Bld) [Volume fraction] 29.3 % Low 35.0 - 47.0 % [facility] Hemoglobin (Bld) [Mass/Vol] 9.8 g/dL Low 11.7 - 16.0 g/dL [facility] Interpretation and review of laboratory results Abnormal [facility] Lymphocytes (Bld) [#/Vol] 1.6 10*3/uL 1.0 - 4.3 10*3/uL [facility] Lymphocytes/100 WBC (Bld) 20.5 % 20.0 - 40.0 % [facility] MCH (RBC) [Entitic mass] 33.9 pg 26.0 - 34.[address] [facility] MCHC (RBC) [Mass/Vol] 33.4 % 32.0 - 36.0 % [facility] MCV (RBC) [Entitic vol] 101.4 fL High 80.0 - 98.0 fL [facility] Monocytes (Bld) [#/Vol] 0.6 10*3/uL 0.0 - 0.8 10*3/uL [facility] Monocytes/100 WBC (Bld) 7.7 % 2.0 - 10.0 % [facility] Neutrophils (Bld) [#/Vol] 5.4 10*3/uL 1.8 - 7.0 10*3/uL [facility] Neutrophils/100 WBC (Bld) 69.0 % 40.0 - 80.0 % [facility] Nucleated RBC/100 WBC (Bld) [Ratio] 0.0 % [facility] Platelet mean volume (Bld) [Entitic vol] 7.2 fL Low 7.4 - 12.4 fL [facility] Platelets (Bld) [#/Vol] 201 10*3/uL 140 - 440 10*3/uL [facility] RBC (Bld) [#/Vol] 2.88 10*6/uL Low 3.8 - 5.20 10*6/uL [facility] WBC (Bld) [#/Vol] 7.8 10*3/uL 3.6 - 10.7 10*3/uL [facility] Respiratory culture and Stai nOrdered By: Tobi Lim on 10-13-2022 Bacteria identified Aer cx Nom (Lower resp) Few respiratory harrison present. [facility] XR Chest 2 Viewson 3 See findings. Report Dictated on Electronically Signed By: Xavier Bender MD Electronically Signed Date/Time: 10/13/2022 2:02 PM EDT [facility] Patient Name: KATHERINE SIMON : 1935 [...] pneumothorax. Osseous structures: No acute osseous abnormality. [facility] Xavier Bender MD - 10/13/2022 Patient Name: [...] Electronically Signed Date/Time: 10/13/2022 2:02 PM EDT [facility] Radiology Study observation (narrative) [facility] XR Chest 2 ViewsOrdered By: Xavier Bender on 10-13-2022 [facility] Work Phone: Basic metabolic 1998 panelon 10-12-2022 Anion gap [Moles/Vol] 6 mmol/L 3 - 13 mmol/L [facility] Calcium [Mass/Vol] 7.9 mg/dL Low 8.4 - 10. 4 mg/dL [facility] Chloride [Moles/Vol] 110 mmol/L High 98 - 10 7 mmol/L [facility] CO2 [Moles/Vol] 25 mmol/L 22 - 30 mmol/L [facility] Creatinine [Mass/Vol] 0.97 mg/dL 0.52 - 1.04 mg/dL [facility] GFR/1.73 sq M.predicted MDRD (S/P/Bld) [Vol rate/Area] 57.0 mL/min/{1.73_m2} Low - PINF [facility] Comment on above: Calculation based on the Chronic Kidney Disease Epidemiology Collaboration (CKD-EPI) equation refit without adjustment for race Glucose [Mass/Vol] 107 mg/dL High 70 - 100 mg/dL [facility] Interpretation and review of laboratory results Abnormal [facility] Potassium [Moles/Vol] 4.4 mmol/L 3.5 - 5.1 mmol/L [facility] Sodium [Moles/Vol] 141 mmol/L 135 - 145 mmol/L [facility] Urea nitrogen [Mass/Vol] 21 mg/dL High 7 - 17 mg/dL [facility] CBC W Auto Differential pane l (Bld)Ordered By: Sylvain Rogers on 10-12-2022 Basophils (Bld) [#/Vol] 0.0 10*3/uL 0.0 - 0.2 10*3/uL [facility] Basophils/100 WBC (Bld) 0.4 % 0.0 - 2.0 % [facility] Eosinophils (Bld) [#/Vol] 0.0 10*3/uL 0.0 - 0.5 10*3/uL [facility] Eosinophils/100 WBC (Bld) 0.1 % Low 1.0 - 6.0 % [facility] Erythrocyte distribution width (RBC) [Ratio] 13.7 % 11.5 - 14.5 % [facility] Hematocrit (Bld) [Volume fraction] 30.0 % Low 35.0 - 47.0 % [facility] Hemoglobin (Bld) [Mass/Vol] 10.1 g/dL Low 11.7 - 16.0 g/dL [facility] Interpretation and review of laboratory results Abnormal [facility] Lymphocytes (Bld) [#/Vol] 1.5 10*3/uL 1.0 - 4.3 10*3/uL [facility] Lymphocytes/100 WBC (Bld) 11.9 % Low 20.0 - 40.0 % [facility] MCH (RBC) [Entitic mass] 34.7 pg High 26.0 - 34.0 pg [facility] MCHC (RBC) [Mass/Vol] 33.7 % 32.0 - 36.0 % [facility] MCV (RBC) [Entitic vol] 103.0 fL High 80.0 - 98.[address] [facility] Monocytes (Bld) [#/Vol] 0.9 10*3/uL High 0.0 - 0.8 10*3/uL [facility] Monocytes/100 WBC (Bld) 6.9 % 2.0 - 10.0 % [facility] Neutrophils (Bld) [#/Vol] 9.9 10*3/uL High 1.8 - 7.0 10*3/uL [facility] Neutrophils/100 WBC (Bld) 80.7 % High 40.0 - 80.0 % [facility] Nucleated RBC/100 WBC (Bld) [Ratio] 0.0 % [facility] Platelet mean volume (Bld) [Entitic vol] 7.1 fL Low 7.4 - 12.4 fL [facility] Platelets (Bld) [#/Vol] 205 10*3/uL 140 - 440 10*3/uL [facility] RBC (Bld) [#/Vol] 2.91 10*6/uL Low 3.8 - 5.20 10*6/uL [facility] WBC (Bld) [#/Vol] 12.3 10*3/uL High 3.6 - 10.7 10*3/uL [facility] Consulton 10-12-2022 Consult Vancomycin therapy h as been discontinued by Dr. Tobar on 10-12-22. Thank you for the consult. Pharmacy signing off for vancomycin dosing. Marilu Whitaker, [facility], Date: 10/12/22 Time: 12:14 PM Normal [facility] Progress Noteon 10-12-2022 Progress Note Physical Therapy Facility/Department: [address] Physical Therapy Initial Evaluation NAME: Katherine Judge : 1935 Date of Service: 10/12/2022 Discharge Recommendations: Fdc Facility, Continue to assess pending progress PT [...] supine<->sit, sc (more content not included)... Normal [facility] Progress Note Nutrition Assessment Type [...] assess Fluid Accumulation: No significant fluid accumulation Foreign Language Interpreter Strength: Not Performed Nutrition Assessment: 87 year old woman with PMHx: CAD, colitis, hypothyroidism. Presented to [facility] with worsening abdominal pain (achy and [...] (kg): 49.4 kg Total Energy Requirements (kcals/day): 7749-4864 (30-35 kcal/kg CBW) Weight Used for Protein [...] 110# UBW) % Weight Change (Calculated): -4.5 [place] Body Weight (lbs) (Calculated): 100 lbs [place] Body Weight (Kg) (Calculated): 45 kg % [place] Body Weight (Calculated): 105 % BMI (kg/m2) [...] to determine Kiana Wagner, RDN, LDN, Contact: *[phone] Normal [facility] Progress Note Pharmacy Vancomycin Consult Follow-Up Note Non-UNDERTAKER ASSISTANT Patients Current Dosinmg q24h CREATININE Date Value [...] check random level with am labs. Normal [facility] CBC W Auto Differential pane l (Bld)Ordered By: Juvenal Lei on 10-11-2022 Basophils (Bld) [#/Vol] 0.0 10*3/uL 0.0 - 0.2 10*3/uL [facility] Basophils/100 WBC (Bld) 0.2 % 0.0 - 2.0 % [facility] Eosinophils (Bld) [#/Vol] 0.0 10*3/uL 0.0 - 0.5 10*3/uL [facility] Eosinophils/100 WBC (Bld) 0.3 % Low 1.0 - 6.0 % [facility] Erythrocyte distribution width (RBC) [Ratio] 14.1 % 11.5 - 14.5 % [facility] Hematocrit (Bld) [Volume fraction] 36.6 % 35.0 - 47.0 % [facility] Hemoglobin (Bld) [Mass/Vol] 11.8 g/dL 11.7 - 16.0 g/dL [facility] Interpretation and review of laboratory results Abnormal [facility] Lymphocytes (Bld) [#/Vol] 1.4 10*3/uL 1.0 - 4.3 10*3/uL [facility] Lymphocytes/100 WBC (Bld) 9.1 % Low 20.0 - 40.0 % [facility] MCH (RBC) [Entitic mass] 32.9 pg 26.0 - 34.0 pg [facility] MCHC (RBC) [Mass/Vol] 32.2 % 32.0 - 36.0 % [facility] MCV (RBC) [Entitic vol] 102.1 fL High 80.0 - 98.0 fL [facility] Monocytes (Bld) [#/Vol] 1.0 10*3/uL High 0.0 - 0.8 10*3/uL [facility] Monocytes/100 WBC (Bld) 6.8 % 2.0 - 10.0 % [facility] Neutrophils (Bld) [#/Vol] 12.7 10*3/uL High 1.8 - 7.0 10*3/uL [facility] Neutrophils/100 WBC (Bld) 83.6 % High 40.0 - 80.0 % [facility] Nucleated RBC/100 WBC (Bld) [Ratio] 0.0 % [facility] Platelet mean volume (Bld) [Entitic vol] 7.1 fL Low 7.4 - 12.4 fL [facility] Platelets (Bld) [#/Vol] 195 10*3/uL 140 - 440 10*3/uL [facility] RBC (Bld) [#/Vol] 3.59 10*6/uL Low 3.8 - 5.20 10*6/uL [facility] WBC (Bld) [#/Vol] 15.1 10*3/uL High 3.6 - 10.7 10*3/uL [facility] Comprehensive metabolic 1998 panelon 10-11-2022 Albumin [Mass/Vol] 3.1 g/dL Low 3.5 - 5.0 g/dL [facility] ALP [Catalytic activity/Vol] 85 U/L 38 - 126 U/L [facility] ALT [Catalytic activity/Vol] 12 U/L 0 - 34 U/L [facility] Anion gap [Moles/Vol] 4 mmol/L 3 - 13 mmol/L [facility] AST [Catalytic activity/Vol] 21 U/L 15 - 46 U/L [facility] Bilirubin [Mass/Vol] 0.8 mg/dL 0.2 - 1 .3 mg/dL [facility] Calcium [Mass/Vol] 8.2 mg/dL Low 8.4 - 10. 4 mg/dL [facility] Chloride [Moles/Vol] 107 mmol/L 98 - 10 7 mmol/L [facility] CO2 [Moles/Vol] 28 mmol/L 22 - 30 mmol/L [facility] Creatinine [Mass/Vol] 0.72 mg/dL 0.52 - 1.04 mg/dL [facility] GFR/1.73 sq M.predicted MDRD (S/P/Bld) [Vol rate/Area] 81.5 mL/min/{1.73_m2} - PINF [facility] Comment on above: Calculation based on the Chronic Kidney Disease Epidemiology Collaboration (CKD-EPI) equation refit without adjustment for race Glucose [Mass/Vol] 86 mg/dL 70 - 100 mg/dL [facility] Interpretation and review of laboratory results Abnormal [facility] Potassium [Moles/Vol] 4.0 mmol/L 3.5 - 5.1 mmol/L [facility] Protein [Mass/Vol] 6.0 g/dL Low 6.3 - 8.2 g/dL [facility] Sodium [Moles/Vol] 140 mmol/L 135 - 145 mmol/L [facility] Urea nitrogen [Mass/Vol] 17 mg/dL 7 - 17 mg/dL [facility] ECG 12 leadOrdered By: Gomez Cooney on 10-11-2022 Heart rate 107 /min bpm [facility] [employer] Work Phone: [address] [place] 17 degrees [facility] Work Phone: NC Interval 134 ms [facility] [employer] Work Phone: QRS [place] 122 degrees [facility] [employer] Work Phone: QRSD Interval 150 ms [employer] Work Phone: QT Interval 391 ms [employer] Work Phone: QTC Interval 506 ms [facility] Work Phone: [phone] [address] [place] -42 degrees [employer] Phone: [employer] Work Phone: ECG 12 leadon 10-11-2022 Sinus tachycardia ra te 107 Paired ventricular premature complexes RBBB and LPFB Lateral ST depression QT prolongation No previous ECG available for comparison Electronically Signed On 10-11-2022 10:41:31 EDT by Martín Cooney Martín Haque, DO - 10/11/2022 IMPRESSION: Sinus tachycardia rate 107 Paired ventricular premature complexes RBBB and LPFB Lateral ST depression QT prolongation No previous ECG available for comparison Electronically Signed On 10-11-2022 10:41:31 EDT by Martín Cooney [facility] ECG 12-LEADon 10-11-2022 ECG 12-LEAD IMPRESSION: Sinus tachycardia rate 107 Paired ventricular premature complexes RBBB and LPFB Lateral ST depression QT prolongation No previous ECG available for comparison Electronically Signed On 10-11-2022 10:41:31 EDT by Martín Cooney Normal [facility] IDNon 10-11-2022 IDN The patient [...] these barriers include encourage fluids . Normal [facility] Legionella and Streptococcus Urine AntigenOrdered By: Vaibhav Londono on 10-11-2022 Interpretation and review of laboratory results Normal [facility] Legionella pneumophila Ag Not detected Not Detected [facility] Streptococcus pneumoniae Ag Not detected Not Detected [facility] Methodology: Lateral flow enzyme immunoassay This assay is approved for detection of antigens to Streptococcus pneumoniae and Legionella pneumophila serogroup 1; however, other L. pneumophila serogroups may also be detected. [facility] Procalcitonin Teston 023 Procalcitonin [Mass/Vol] 0.14 ng/mL High 0.00 - 0.09 ng/mL [facility] Procalcitonin [Mass/Vol]on 0 10-11-2022 Interpretation and review of laboratory results Abnormal [facility] PCT <0.50 = Low risk of severe sepsis and/or septic shock. PCT >2.00 = High risk of severe sepsis and/or septic shock. [facility] Progress Noteon 10-11-2022 Progress Note Attempted two IV sta rts, call UNDERTAKER ASSISTANT to place for antibiotics. ] Normal [facility] Progress Note Pharmacy Vancomycin Consult Follow-Up Note Non-UNDERTAKER ASSISTANT Patients Current Dosinmg x1 -> 750mg q24hr [...] of 521 and continue to follow. Normal [facility] Respiratory pathogens DNA an d RNA panel ALTHEA+non-probe (Lower resp)Ordered By: Fela Calvo on 10-11-2022 Acinetobacter baumannii complex Not detected Not Detected [facility] Adenovirus Not detected Not Detected [facility] Chlamydia pneumoniae Not detected Not Detected [facility] Enterobacter cloacae complex Not detected Not Detected [facility] Escherichia coli Not detected Not Detected [facility] FLUAV RNA ALTHEA+non-probe Ql (Lower resp) Not detected Not Detected [facility] FLUBV RNA ALTHEA+non-probe Ql (Lower resp) Not detected Not Detected [facility] Haemophilus influenzae Not detected Not Detected [facility] Human Metapneumovirus Not detected Not Detected [facility] Human Rhinovirus/Enteroviru s Not detected Not Detected [facility] Interpretation and review of laboratory results Normal [facility] Klebsiella (Enterobacter) aerogenes Not detected Not Detected [facility] Klebsiella oxytoca Not detected Not Detected [facility] Klebsiella pneumoniae Not detected Not Detected [facility] Legionella pneumophila Not detected Not Detected [facility] Moraxella catarrhalis Not detected Not Detected [facility] Mycoplasma pneumoniae Not detected Not Detected [facility] Parainfluenza virus Not detected Not Detected [facility] Proteus spp Not detected Not Detected [facility] Pseudomonas aeruginosa Not detected Not Detected [facility] RSV RNA ALTHEA+probe Ql (Resp) Not detected Not Detected [facility] S. agalactiae Org specific cx Ql (Vag fld) Not detected Not Detected [facility] SARS-CoV-2 (COVID-19) RNA ALTHEA+probe Ql (Unsp spec) Not detected Not Detected [facility] SARS-CoV-2 (COVID-19) RNA ALTHEA+probe Ql (Unsp spec) Methodology: Multiplex PCR This panel does not test for SARS-CoV-2 (Covid-19). The following antimicrobial resistance gene is reported if the appropriate organism is detected: mecA. The following antimicrobial resistance genes are reported if detected and the appropriate organisms are detected: CTX-M, IMP, KPC, NDM, OXA-48-like, and VIM. [facility] Serratia marcescens Not detected Not Detected [facility] Staphylococcus aureus Not detected Not Detected [facility] Streptococcus pneumoniae Not detected Not Detected [facility] Streptococcus pyogenes Not detected Not Detected [facility] Vancomycin, randomon 023 Interpretation and review of laboratory results Abnormal [facility] Vancomycin [Mass/Vol] 12.5 ug/mL Low 15.0 - 20.0 ug/mL [facility] XR CHEST 1 VIEWon 10-11-2022 XR CHEST [...] 10/11/2022 11:27 AM EDT Pt c/o sob [facility] XR Chest Single viewon 10-11 Chronic interstitial changes with bilateral basilar atelectasis or scarring. No focal consolidations digitally seen. There is a very large hiatal hernia noted on a CT from 10/10/2022, difficult to visualize on this single film. Report Dictated on Electronically Signed By: Ranjeet Huerta MD Electronically Signed Date/Time: 10/11/2022 11:27 AM EDT [facility] Patient Name: KATHERINE SIMON : 1935 [...] degenerative changes of the spine and shoulders. [facility] Ranjeet Huerta MD - 10/11/2022 [facility] Name: [facility] 1935 [id number] Exam Date/Time: 10/11/2022 08:49 Procedure: XR CHEST [...] Electronically Signed Date/Time: 10/11/2022 11:27 AM EDT [facility] Radiology Study observation (narrative) [facility] XR Chest Single viewOrdered By: Ranjeet Huerta on 10-11-2022 [facility] Work Phone: Basic metabolic 1998 panelon 10-10-2022 Anion gap [Moles/Vol] 8 mmol/L 3 - 13 mmol/L [facility] Calcium [Mass/Vol] 8.9 mg/dL 8.4 - 10. 4 mg/dL [facility] Chloride [Moles/Vol] 103 mmol/L 98 - 10 7 mmol/L [facility] CO2 [Moles/Vol] 30 mmol/L 22 - 30 mmol/L [facility] Creatinine [Mass/Vol] 0.94 mg/dL 0.52 - 1.04 mg/dL [facility] GFR/1.73 sq M.predicted MDRD (S/P/Bld) [Vol rate/Area] 59.2 mL/min/{1.73_m2} Low - PINF [facility] Comment on above: Calculation based on the Chronic Kidney Disease Epidemiology Collaboration (CKD-EPI) equation refit without adjustment for race Glucose [Mass/Vol] 110 mg/dL High 70 - 100 mg/dL [facility] Potassium [Moles/Vol] 4.1 mmol/L 3.5 - 5.1 mmol/L [facility] Sodium [Moles/Vol] 142 mmol/L 135 - 145 mmol/L [facility] Urea nitrogen [Mass/Vol] 22 mg/dL High 7 - 17 mg/dL [facility] CBC W Auto Differential pane l (Bld)Ordered By: Rivka Tipton on 10-10-2022 Basophils (Bld) [#/Vol] 0.0 10*3/uL 0.0 - 0.2 10*3/uL [facility] Basophils/100 WBC (Bld) 0.1 % 0.0 - 2.0 % [facility] Eosinophils (Bld) [#/Vol] 0.0 10*3/uL 0.0 - 0.5 10*3/uL [facility] Eosinophils/100 WBC (Bld) 0.1 % Low 1.0 - 6.0 % [facility] Erythrocyte distribution width (RBC) [Ratio] 14.2 % 11.5 - 14.5 % [facility] Hematocrit (Bld) [Volume fraction] 37.3 % 35.0 - 47.0 % [facility] Hemoglobin (Bld) [Mass/Vol] 12.6 g/dL 11.7 - 16.0 g/dL [facility] Interpretation and review of laboratory results Abnormal [facility] Lymphocytes (Bld) [#/Vol] 1.3 10*3/uL 1.0 - 4.3 10*3/uL [facility] Lymphocytes/100 WBC (Bld) 7.6 % Low 20.0 - 40.0 % [facility] MCH (RBC) [Entitic mass] 34.5 pg High 26.0 - 34.0 pg [facility] MCHC (RBC) [Mass/Vol] 33.9 % 32.0 - 36.0 % [facility] MCV (RBC) [Entitic vol] 102.0 fL High 80.0 - 98.0 fL [facility] Monocytes (Bld) [#/Vol] 1.0 10*3/uL High 0.0 - 0.8 10*3/uL [facility] Monocytes/100 WBC (Bld) 5.8 % 2.0 - 10.0 % [facility] Neutrophils (Bld) [#/Vol] 14.6 10*3/uL High 1.8 - 7.0 10*3/uL [facility] Neutrophils/100 WBC (Bld) 86.4 % High 40.0 - 80.0 % [facility] Nucleated RBC/100 WBC (Bld) [Ratio] 0.0 % [facility] Platelet mean volume (Bld) [Entitic vol] 7.2 fL Low 7.4 - 12.4 fL [facility] Platelets (Bld) [#/Vol] 217 10*3/uL 140 - 440 10*3/uL [facility] RBC (Bld) [#/Vol] 3.65 10*6/uL Low 3.8 - 5.20 10*6/uL [facility] WBC (Bld) [#/Vol] 16.9 10*3/uL High 3.6 - 10.7 10*3/uL [facility] COVID-19, Flu A/B, and RSV C omboon 10-10-2022 FLUAV RNA ALTHEA+probe Ql (Resp) Not detected Not Detected [facility] FLUBV RNA ALTHEA+probe Ql (Resp) Not detected Not Detected [facility] Interpretation and review of laboratory results Normal [facility] RSV RNA ALTHEA+probe Ql (Resp) Not detected Not Detected [facility] SARS-CoV-2 (COVID-19) RNA ALTHEA+probe Ql (Resp) Not detected Not Detected [facility] SARS-CoV-2 (COVID-19) RNA ALTHEA+probe Ql (Unsp spec) Methodology: real-time, RT-PCR The SARS-CoV-2, Flu A/B, and RSV Combo assay is intended for in vitro diagnostic use under the FDA Emergency Use Authorization (EUA). This test has not been FDA cleared or approved. In compliance with this authorization, please visit www.fda.gov/media/893181/messi nload or www.fda.gov/media/616337/messi nload to access the applicable information sheets. [facility] CT ABDOMEN PELVIS W CONTRAST on 10-10-2022 [...] she started to cough as well. Normal [facility] CT Abdomen and Pelvis W cont rast [...] Electronically Signed Date/Time: 10/10/2022 5:13 PM EDT [facility] Patient Name: KATHERINE SIMON : 1935 [id number] Exam Date/Time: 10/10/2022 16:52 Procedure: CT ABDOMEN [...] moderate central canal and neural foraminal narrowing. [facility] EMERGENCY [facility]PARTMENT RADIOLOGY SYSTEM Sallie, Jos Gaona MD - [...] Electronically Signed Date/Time: 10/10/2022 5:13 PM EDT [facility] Radiology Study observation (narrative) [facility] CT Abdomen and Pelvis W cont rast IVOrdered By: Jos Rizo on 10-10-2022 [facility] Work Phone: Consulton 10-10-2022 Consult Pharmacy Note Vancomycin Consult Non-UNDERTAKER ASSISTANT Katherine Judge is a 87 y.o. year [...] the consult. Will continue to follow. Normal [facility] ED Nursing Noteon 10-10-2022 ED Nursing Note Guided family back Lavinia Jenkins, EMT 10/10/22 1419 Normal [facility] ED Provider Noteon ED Provider Note Emergency Department Encounter [facility] ED Patient: Katherine Judge : 1935 [...] clarification.) Evelin Salcedo DO Acute Care [facility] Evelin Salcedo DO 10/10/22 2131 [facility] ED Provider Note EMERGENCY DEPARTMENT ENCOUNTER [...] Culture. Procedure Abnormality Status --------- ------ Complete Urinalysis[[id number]] Please view results for these tests on the individual orders. (more content not included)... Normal [facility] Hepatic function 2000 panelo n 10-10-2022 Albumin [Mass/Vol] 3.4 g/dL Low 3.5 - 5.0 g/dL [facility] ALP [Catalytic activity/Vol] 88 U/L 38 - 126 U/L [facility] ALT [Catalytic activity/Vol] 14 U/L 0 - 34 U/L [facility] AST [Catalytic activity/Vol] 24 U/L 15 - 46 U/L [facility] Bilirubin [Mass/Vol] 1.0 mg/dL 0.2 - 1 .3 mg/dL [facility] Bilirubin.conjugated [Mass/Vol] 0.0 mg/dL 0.0 - 0.3 mg/dL [facility] Protein [Mass/Vol] 7.0 g/dL 6.3 - 8.2 g/dL [facility] IDNon 10-10-2022 IDN The patient is Moder [...] barriers include continue current care plan. Normal [facility] Lactic acid, sepsis, with re flex if elevatedon 10-10-2022 Interpretation and review of laboratory results Normal [facility] Lactate [Moles/Vol] 0.9 mmol/L 0.7 - 2. 0 mmol/L [facility] Lipaseon 10-10-2022 Lipase [Catalytic activity/Vol] 25 U/L 23 - 300 U/L [facility] Lipase [Catalytic activity/V ol]on 10-10-2022 Interpretation and review of laboratory results Normal [facility] No Panel Informationon 10-10 Interpretation and review of laboratory results Abnormal [facility] Urinalysis complete panel (U )Ordered By: Argelia Wood on 10-10-2022 Bacteria LM.HPF (Urine sed) [#/Area] Negative Negative /HPF [facility] Bilirubin Ql (U) Negative Negative mg/dL [facility] Clarity (U) Clear Clear [facility] Color (U) Yellow Lt. Yellow [facility] Epithelial cells.squamous LM.HPF (Urine sed) [#/Area] 0-2 [facility] Glucose Ql (U) Normal Normal (<70) mg/dL [facility] Hemoglobin Ql (U) 0.03 mg/dL Abnormal Negative [facility] Hyaline casts Auto (Urine sed) [#/Area] 6-10 Abnormal Negative /LPF [facility] Interpretation and review of laboratory results Abnormal [facility] Ketones (U) [Mass/Vol] Trace Abnormal Negative mg/dL [facility] Leukocyte esterase Test strip Ql (U) Negative Negative Roxann/uL [facility] Mucus LM.HPF (Urine sed) [#/Area] Few Negative /LPF [facility] Nitrite Ql (U) Negative Negative [facility] pH (U) 5.5 [pH] 5.0 - 8.0 pH [facility] Protein (U) [Mass/Vol] 30 mg/dL Abnormal Negative [facility] RBC LM.HPF (Urine sed) [#/Area] 0-2 [facility] Specific gravity (U) [Rel density] 1.018 1.005 - 1.030 [facility] Urobilinogen (U) [Mass/Vol] Normal Normal (0-1) mg/dL [facility] WBC LM.HPF (Urine sed) [#/Area] 3-5 [facility] Blood Pressure Cuff Sizeon 0 09-11-2022 Tobacco [...] prolapse) Echocardiogram; Status:Hold For - Scheduling; Requested for:[id number]; PMH: History of hypertension Renew: Metoprolol Tartrate [...] by Problem List Migration; 2012-04-06; Moved to [facility] Jan 01 2013 4:07PM Medicare annual wellness [...] (V13.4) History of Atherosclerotic heart disease of [place] coronary artery with unspecified angina pectoris (414.01,413.9) [...] tx with Levaquin. COMPARISON: 05/30/2022 ACCESSION NUMBER(S): [id number] ORDERING CLINICIAN: CHRIST URIBE TECHNIQUE: FINDINGS: Heart [...] Electronically signed by: GIORGI MULLER MD Normal [facility] Office Visit (Cardiology)on 06-12-2022 Follow-up visit Diagnoses/Problems [...] by Problem List Migration; 2012-04-06; Moved to [facility] Jan 01 2013 4:07PM Medicare annual wellness [...] Knee Replacemen (more content not included)... Normal [facility] Tobacco Screening.on 023 Fall risk assessment b) One or more fall s in the last year [facility] [address] [place] Work Phone: Tobacco use status CPH[facility] b) No [facility] [address] [place] Work Phone: XR Chest 2 Viewson 3 Possible focus of ne w right lower lobe pneumonia. Large hiatal hernia again noted. Numerous vertebral compression fractures. [facility] EMERGENC[facility]PART[facility] RADIOLOGY [facility] Interpreted By: HEIDI CHANEL MD Patient Name: KATHERINE JUDGE STUDY: TH CHEST 2 VIEW PA AND LAT INDICATION: hypoxia; no chest pain, no cough. COMPARISON: October 09, 2017 ACCESSION NUMBER(S): [id number] ORDERING CLINICIAN: CHRIST URIBE FINDINGS: Cardiomegaly with median sternotomy unchanged. Large hiatal hernia. Possible new patchy right basilar airspace opacity which could be a component of pneumonia. Numerous vertebral compression fractures again noted. [facility]OLOG[facility] Heidi Muller MD - 05/31/2022 Interpreted By: HEIDI MULLER MD Patient Name: DERICKKATHERINE STUDY: TH CHEST 2 VIEW PA AND LAT INDICATION: hypoxia; no chest pain, no cough. COMPARISON: October 09, 2017 ACCESSION NUMBER(S): [id number] ORDERING CLINICIAN: CHRIST URIBE FINDINGS: Cardiomegaly with median sternotomy unchanged. Large hiatal hernia. Possible new patchy right basilar airspace opacity which could be a component of pneumonia. Numerous vertebral compression fractures again noted. IMPRESSION: Possible focus of new right lower lobe pneumonia. Large hiatal hernia again noted. Numerous vertebral compression fractures. [facility] Work Phone: XR Chest 2 ViewsOrdered By: Heidi Muller on 05-31-2022 [facility] Work Phone: BASIC METABOLIC PANELon 04-2 Anion gap [Moles/Vol] 13 mmol/L Normal 10 - 20 [facility] Comment on above: Performed By: #### B MP #### [facility] [address] [place] [address] Calcium [Mass/Vol] 10.2 mg/dL Normal 8.6 - 10.6 [facility] Comment on above: Performed By: #### B MP #### [facility] [address] [place] [address] Chloride [Moles/Vol] 105 mmol/L Normal 98 - 107 [facility] Comment on above: Performed By: #### B MP #### [facility] [address] [place] [address] Creatinine [Mass/Vol] 0.93 mg/dL Normal 0.50 - 1.05 [facility] Comment on above: Performed By: #### B MP #### [facility] [address] [place] [address] GFR/1.73 sq M.predicted among non-blacks MDRD (S/P/Bld) [Vol rate/Area] 60 mL/min/{1.73_m2} Normal >90 [facility] Comment on above: Result Comment: CALC ULATIONS OF ESTIMATED GFR ARE PERFORMED USING THE 2020 CKD-EPI STUDY REFIT EQUATION WITHOUT THE RACE VARIABLE FOR THE IDMS-TRACEABLE CREATININE METHODS. https://jasn.asnjournals.org/content//ASN.434168 7672 Performed By: #### B MP #### [facility] [address] [place] [address] Glucose [Mass/Vol] 84 mg/dL Normal 74 - 99 [facility] Comment on above: Performed By: #### B MP #### [facility] [address] [place] [address] HCO3 (Bld) [Moles/Vol] 31 mmol/L Normal 21 - 32 [facility] Comment on above: Performed By: #### B MP #### [facility] [address] [place] [address] Potassium [Moles/Vol] 4.2 mmol/L Normal 3.5 - 5.3 [facility] Comment on above: Performed By: #### B MP #### [facility] [address] [place] [address] Sodium [Moles/Vol] 145 mmol/L Normal 136 - 145 [facility] Comment on above: Performed By: #### B MP #### [facility] [address] [place] [address] Urea nitrogen [Mass/Vol] 22 mg/dL Normal 6 - 23 [facility] Comment on above: Performed By: #### B MP #### [facility] [address] [place] [address] CBCon 05-30-2022 Erythrocyte distribution width (RBC) [Ratio] 14.7 % High 11.5 - 14.5 [facility] Comment on above: Performed By: #### C BC ####[id number] [place] [address] Hematocrit (Bld) [Volume fraction] 41.1 % Normal 36.0 - 46.0 [facility] Comment on above: Performed By: #### C BC ####[id number] [place] [address] Hemoglobin (Bld) [Mass/Vol] 13.0 g/dL Normal 12.0 - 16.0 [facility] Comment on above: Performed By: #### C BC ####[id number] [place] [address] MCHC (RBC) [Mass/Vol] 31.6 g/dL Low 32.0 - 36.0 [facility] Comment on above: Performed By: #### C BC ####[id number] [place] [address] MCV (RBC) [Entitic vol] 106 fL High 80 - 100 [facility] Comment on above: Performed By: #### C BC ####[id number] [place] [address] NUCLEATED RBC 0.3 /100 WBC Normal 0.0-0.0 [facility] Comment on above: Performed By: #### C BC ####[id number] [place] [address] Platelets (Bld) [#/Vol] 234 10*3/uL Normal 150 - 450 [facility] Comment on above: Performed By: #### C BC ####[id number] [place] [address] RBC 3.87 x10E12/L Low 4.00 - 5.20 [facility] Comment on above: Performed By: #### C BC ####[id number] [place] [address] WBC (Bld) [#/Vol] 7.0 10*3/uL Normal 4.4 - 11.3 [facility] Comment on above: Performed By: #### C BC ####[id number] [place] [address] CHEST 2 VIEW PA AND LATon CHEST 2 VIEW PA AND LAT Patient Name: KATHERINE JUDGE STUDY: TH CHEST 2 VIEW PA AND LAT INDICATION: hypoxia; no chest pain, no cough. COMPARISON: October 09, 2017 ACCESSION NUMBER(S): [id number] ORDERING CLINICIAN: CHRIST URIBE FINDINGS: Cardiomegaly with median sternotomy unchanged. Large hiatal hernia. Possible new patchy right basilar airspace opacity which could be a component of pneumonia. Numerous vertebral compression fractures again noted. IMPRESSION: Possible focus of new right lower lobe pneumonia. Large hiatal hernia again noted. Numerous vertebral compression fractures. Electronically signed by: HEIDI MULLER MD Normal [facility] LIPID PANEL (CORONARY RISK 2 )on 05-30-2022 Cholesterol [Mass/Vol] 158 mg/dL Normal 0 - 199 [facility] Comment on above: Result Comment: . AGE [...] dosing. Performed By: #### L IPID #### [facility] [address] [place] [address] Cholesterol in HDL [Mass/Vol] 47.3 mg/dL Normal [facility] Comment on above: Result Comment: . AGE VERY LOW LOW NORMAL HIGH 0-19 Y < 35 < 40 40-45 ---- 20-24 Y ---- < 40 >45 ---- >24 Y ---- < 40 40-60 >60 . Performed By: #### L IPID #### [facility] [address] [place] [address] Cholesterol in LDL [Mass/Vol] 84 mg/dL Normal 0 - 99 [facility] Comment on above: Result Comment: . NEAR BORD AGE DESIRABLE OPTIMAL HIGH HIGH VERY HIGH 0-19 Y 0 - 109 --- 110-129 >/= 130 ---- 20-24 Y 0 - 119 --- 120-159 >/= 160 ---- >24 Y 0 - 99 100-129 130-159 160-189 >/=190 . Performed By: #### L IPID #### [facility] [address] [place] [address] Cholesterol in VLDL [Mass/Vol] 27 mg/dL Normal 0 - 40 [facility] Comment on above: Performed By: #### L IPID #### [facility] [address] [place] [address] Cholesterol.total/Cho lesterol in HDL [Mass ratio] 3.3 {ratio} Normal [facility] Comment on above: Result Comment: REF VALUES DESIRABLE < 3.4 HIGH RISK > 5.0 Performed By: #### L IPID #### [facility] [address] [place] [address] Triglyceride [Mass/Vol] 135 mg/dL Normal 0 - 149 [facility] Comment on above: Result Comment: . AGE [...] Performed By: #### L IPID #### [facility] [address] [place] [address] MAGNESIUMon 05-30-2022 Magnesium [Mass/Vol] 2.26 mg/dL Normal 1.60 - 2.40 [facility] Comment on above: Performed By: #### M G #### [facility] [id number] [place] [address] PHOSPHORUSon 05-30-2022 Phosphate [Mass/Vol] 3.3 mg/dL Normal 2.5 - 4.9 [facility] Comment on above: Result Comment: The performance characteristics of phosphorus testing in heparinized plasma have been validated by the individual laboratory site where testing is performed. Testing on heparinized plasma is not approved by the FDA; however, such approval is not necessary. Performed By: #### P HOS #### [facility] [address] [place] [address] Radiologyon 05-30-2022 XR Chest 2 Views Normal [facility] [address] [place] Work Phone: VITAMIN D, 25-HYDROXYon 05-11 VITAMIN D, 25-HYDROXY 79 ng/mL Normal [facility] Comment on above: Result Comment: . DEFICIENCY: < 20 NG/ML INSUFFICIENCY: 20-29 NG/ML SUFFICIENCY: 30-100 NG/ML THIS ASSAY ACCURATELY QUANTIFIES THE SUM OF VITAMIN D3, 25-HYDROXY AND VIT D2,25-HYDROXY. Performed By: #### V TDOH ####[id number] [place] [address] XR Chest 2 Viewson 3 Radiology Study observation (narrative) [facility] Work Phone: LIPID PANEL (CORONARY RISK 2 )on 05-29-2022 Lab Specimen Source Normal [facility] Comment on above: Performed By: #### L IPID #### [facility] [id number] [place] [address] Performed By: #### M G #### [facility] [address] [place] [address] Performed By: #### B MP #### [facility] [address] [place] [address] Performed By: #### P HOS #### [facility] [address] [place] [address] Performed By: #### C BC ####[id number] [place] [address] Laboratory - Chemistry and C hemistry - challengeon 05-29-2022 Anion gap [Moles/Vol] 13 mmol/L 10 - 20 [facility] [address] [place] Work Phone: [phone] Calcium [Mass/Vol] 10.2 mg/dL 8.6 - 10.6 [facility] [address] [place] Work Phone: [phone] Chloride [Moles/Vol] 105 mmol/L 98 - 107 [facility] [address] [place] Work Phone: [phone] CO2 [Moles/Vol] 31 mmol/L 21 - 32 [facility] Work Phone: [phone] Creatinine [Mass/Vol] 0.93 mg/dL See Below [facility] Work Phone: [phone] Comment on above: Reference Range: 0.5 0 - 1.05 Glucose [Mass/Vol] 84 mg/dL 74 - 99 [facility] [address] [place] Work Phone: Comment on above: SOURCE: Potassium [Moles/Vol] 4.2 mmol/L 3.5 - 5.3 [facility] [address] [place] Work Phone: [phone] Sodium [Moles/Vol] 145 mmol/L 136 - 145 [facility] [address] [place] Work Phone: [phone] Urea nitrogen [Mass/Vol] 22 mg/dL 6 - 23 [facility] Work Phone: [phone] Laboratory - Hematology and Cell countson 05-29-2022 Erythrocyte distribution width (RBC) [Ratio] 14.7 % above high threshold See Below [facility] [address] [place] Work Phone: [phone] Comment on above: Reference Range: 11. 5 - 14.5 Hematocrit (Bld) [Volume fraction] 41.1 % See Below [facility] [facility] [place] Work Phone: [phone] Comment on above: Reference Range: 36. 0 - 46.0 Hemoglobin (Bld) [Mass/Vol] 13.0 g/dL See Below [facility] [address] [place] Work Phone: [phone] Comment on above: Reference Range: 12. 0 - 16.0 MCHC (RBC) [Mass/Vol] 31.6 g/dL below low threshold See Below [facility] [address] [place] Work Phone: [phone] Comment on above: Reference Range: 32. 0 - 36.0 MCV (RBC) [Entitic vol] 106 fL above high threshold 80 - 100 [facility] [address] [place] Work Phone: [phone] Platelets (Bld) [#/Vol] 234 10*3/uL 150 - 450 [facility] [address] [place] Work Phone: [phone] RBC (Bld) [#/Vol] 3.87 {x10E12/L} below low threshold See Below [facility] [address] [place] Work Phone: Comment on above: Reference Range: 4.0 0 - 5.20 WBC (Bld) [#/Vol] 7.0 10*3/uL 4.4 - 11.3 [facility] [address] [place] Work Phone: Comment on above: SOURCE: Lipid Panelon 05-29-2022 Cholesterol [Mass/Vol] 158 mg/dL 0 - 199 [facility] [address] [place] Work Phone: Comment on above: [...] guidelines reference: NCEP ATPIII Guidelines, LAURA 2001, 258:0786-97. Venipuncture immediately after or during the administration of Metamizole may lead to falsely low results. Testing should be performed immediately prior to Metamizole dosing. Cholesterol in HDL [Mass/Vol] 47.3 mg/dL [facility] [address] [place] Work Phone: Comment on above: . AGE VERY LOW LOW N ORMAL HIGH 0-19 Y < 35 < 40 40-45 ---- 20- 24 Y ---- < 40 >45 ---- >24 Y ---- < 40 40-60 >60. Cholesterol in LDL [Mass/Vol] 84 mg/dL 0 - 99 [facility] [address] [place] Work Phone: Comment on above: . NEAR BORD AGE TORI RABLE OPTIMAL HIGH HIGH VERY HIGH 0-19 Y 0 - 109 --- 110-129 >/= 130 ---- 20-24 Y 0 - 119 --- 120-159 >/= 160 ---- >24 Y 0 - 99 100-129 130-159 160-189 >/=190. Cholesterol.total/Cho lesterol in HDL [Mass ratio] 3.3 {ratio} [facility] [address] [place] Work Phone: Comment on above: REF VALUESDESIRABLE < 3.4HIGH RISK > 5.0 Triglyceride [Mass/Vol] 135 mg/dL 0 - 149 [facility] [address] [place] Work Phone: Comment on above: [...] Panel 27 mg/dL 0 - 40 [facility] [address] [place] Work Phone: Magnesium, Serumon 3 Magnesium [Mass/Vol] 2.26 mg/dL See Below [facility] [address] [place] Work Phone: Comment on above: SOURCE: Reference Ra nge: 1.60 - 2.40 No Panel Informationon 05-29 60 {mL/min/1.73m2} >90 [facility] [address] [place] Work Phone: Comment on above: CALCULATIONS OF ALVARO MATED GFR ARE PERFORMED USING THE 2020 CKD-EPI STUDY REFIT EQUATION WITHOUT THE RACE VARIABLE FOR THE IDMS-TRACEABLE CREATININE METHODS.https://jasn.asnjournals.org/content/early// N.4310405709 0.3 {/100_WBC} 0.0-0.0 [facility] [address] [place] Work Phone: Phosphorus, Serumon 05-30-19 23 Phosphate [Mass/Vol] 3.3 mg/dL 2.5 - 4.9 [facility] [address] [place] Work Phone: Comment on above: SOURCE: The performa nce characteristics of phosphorus testing in heparinized plasma have been validated by the individual laboratory site where testing is performed. Testing on heparinized plasma is not approved by the FDA; however, such approval is not necessary. Vitamin D 25-Hydroxyon 05-29 25-hydroxyvitamin D3 [Mass/Vol] 79 ng/mL Tammy Burgos [address] [place] Work Phone: Comment on [...] Electronically signed by: SUHAIL ALMANZA MD Normal [facility] Blood Pressure Cuff Sizeon 0 03-12-2022 Tobacco use status CPHS b) No [facility] Work Phone: Blood Pressure Cuff Size Adult [facility] Work Phone: Echocardiogramon 03-12-2022 Echocardiography [facility] , [address] [place] [address], [address] [address] and TRANSTHORACIC ECHOCARDIOGRAM REPORT Patient Name: KATHERINE JUDGE Reading Physician: [id number] Darlene Ayala MD Study Date: 03/12/2022 Referring Physician: Apple Beth MRN/PID: [id number] PCP: Accession/Order#: [id number] Department Location: [facility] Date of : 1935 Fellow: Gender: F Nurse: Admit Date: Undercoater: Rama ALEGRE Admission Status: Outpatient Additional Staff: Height: 154.94 cm CC Report to: Weight: 48.08 kg Study Type: Echocardiogram BSA: 1.44 m2 Blood Pressure: 136 /69 mmHg Diagnosis/ICD: I34.1-Nonrheumatic mitral (valve) prolapse; 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 Normal [facility] Carotid Artery Dupl ex Ultrasounon 03-12-2022 [facility] Carotid Artery Duplex Ultrasoun [address], [address] [address] and Vascular Lab Report Carotid Artery Duplex Ultrasound Patient Name: KATHERINE Lo Physician: [id number] Gonsalo Willis MD Study Date: 03/12/2022 Referring Physician: APPLE BETH MRN/PID: [id number] PCP: Accession/Order#: [id number] CC Report to: Date of : 1935 Technologist: Anthony Rich RVT, RDMS Gender: F Technologist 2: Admission Status: Outpatient Location Performed: [facility] Diagnosis/ICD: R09.89-Other specified symptoms and signs involving the circulatory and respiratory systems Procedure/CPT: 47666 Cerebrovascular Carotid Duplex scan complete-[id number] CONCLUSIONS: Right Carotid: Findings are consistent with [...] cm/s Right Left ICA/CCA Ratio 0.9 0.8 [id number] Gonsalo Willis MD Final Normal [facility] Carotid Artery Dupl ex Ultrasoundon 03-12-2022 US.doppler Carotid arteries [facility] Work Phone: BASIC METABOLIC PANELon 09-0 Anion gap [Moles/Vol] 15 mmol/L Normal 10 - 20 [facility] Comment on above: Performed By: #### B MP #### [facility] [address] [place] [address] Calcium [Mass/Vol] 10.3 mg/dL Normal 8.6 - 10.6 [facility] Comment on above: Performed By: #### B MP #### [facility] [address] [place] [address] Chloride [Moles/Vol] 103 mmol/L Normal 98 - 107 [facility] Comment on above: Performed By: #### B MP #### [facility] [address] [place] [address] Creatinine [Mass/Vol] 1.22 mg/dL High 0.50 - 1.05 [facility] Comment on above: Performed By: #### B MP #### [facility] [address] [place] [address] GFR/1.73 sq M.predicted among non-blacks MDRD (S/P/Bld) [Vol rate/Area] 43 mL/min/{1.73_m2} Abnormal >90 [facility] Comment on above: Result Comment: CALC ULATIONS OF ESTIMATED GFR ARE PERFORMED USING THE 2020 CKD-EPI STUDY REFIT EQUATION WITHOUT THE RACE VARIABLE FOR THE IDMS-TRACEABLE CREATININE METHODS. https://jasn.asnjournals.org/content/early//ASN.836608 6338 Performed By: #### B MP #### [facility] [address] [place] [address] Glucose [Mass/Vol] 94 mg/dL Normal 74 - 99 [facility] Comment on above: Performed By: #### B MP #### [facility] [address] [place] [address] HCO3 (Bld) [Moles/Vol] 29 mmol/L Normal 21 - 32 [facility] Comment on above: Performed By: #### B MP #### [facility] [address] [place] [address] Potassium [Moles/Vol] 4.5 mmol/L Normal 3.5 - 5.3 [facility] Comment on above: Performed By: #### B MP #### [facility] [address] [place] [address] Sodium [Moles/Vol] 142 mmol/L Normal 136 - 145 [facility] Comment on above: Performed By: #### B MP #### [facility] [address] [place] [address] Urea nitrogen [Mass/Vol] 21 mg/dL Normal 6 - 23 [facility] Comment on above: Performed By: #### B MP #### [facility] [address] [place] [address] Blood Pressure Cuff Sizeon 0 10-16-2021 Blood Pressure Cuff Size Adult [facility] Work Phone: CBCon 10-16-2021 Erythrocyte distribution width (RBC) [Ratio] 13.5 % Normal 11.5 - 14.5 [facility] Comment on above: Performed By: #### C BC #### [facility] [address] [place] [address] Hematocrit (Bld) [Volume fraction] 39.0 % Normal 36.0 - 46.0 [facility] Comment on above: Performed By: #### C BC #### [facility] [address] [place] [address] Hemoglobin (Bld) [Mass/Vol] 12.0 g/dL Normal 12.0 - 16.0 [facility] Comment on above: Performed By: #### C BC #### [facility] [address] [place] [address] MCHC (RBC) [Mass/Vol] 30.8 g/dL Low 32.0 - 36.0 [facility] Comment on above: Performed By: #### C BC #### [facility] [address] [place] [address] MCV (RBC) [Entitic vol] 107 fL High 80 - 100 [facility] Comment on above: Performed By: #### C BC #### [facility] [address] [place] [address] NUCLEATED RBC 0.0 /100 WBC Normal 0.0-0.0 [facility] Comment on above: Performed By: #### C BC #### [facility] [address] [place] [address] Platelets (Bld) [#/Vol] 235 10*3/uL Normal 150 - 450 [facility] Comment on above: Performed By: #### C BC #### [facility] [address] [place] [address] RBC 3.64 x10E12/L Low 4.00 - 5.20 [facility] Comment on above: Performed By: #### C BC #### [place] [address] [place] [address] WBC (Bld) [#/Vol] 6.6 10*3/uL Normal 4.4 - 11.3 [facility] Comment on above: Performed By: #### C BC #### [facility] [address] [place] [address] Laboratory - Chemistry and C hemistry - challengeon 10-16-2021 Anion gap [Moles/Vol] 15 mmol/L 10 - 20 [facility] Work Phone: Calcium [Mass/Vol] 10.3 mg/dL 8.6 - 10.6 [facility] Work Phone: Chloride [Moles/Vol] 103 mmol/L 98 - 107 [facility] Work Phone: CO2 [Moles/Vol] 29 mmol/L 21 - 32 [facility] Work Phone: Creatinine [Mass/Vol] 1.22 mg/dL above high threshold See Below [facility] Work Phone: Comment on above: Reference Range: 0.5 0 - 1.05 Glucose [Mass/Vol] 94 mg/dL 74 - 99 [facility] Work Phone: Potassium [Moles/Vol] 4.5 mmol/L 3.5 - 5.3 [facility] Work Phone: Sodium [Moles/Vol] 142 mmol/L 136 - 145 [facility] Work Phone: Urea nitrogen [Mass/Vol] 21 mg/dL 6 - 23 [facility] Work Phone: Laboratory - Hematology and Cell countson 10-16-2021 Erythrocyte distribution width (RBC) [Ratio] 13.5 % See Below [facility] Work Phone: Comment on above: Reference Range: 11. 5 - 14.5 Hematocrit (Bld) [Volume fraction] 39.0 % See Below [facility] Work Phone: Comment on above: Reference Range: 36. 0 - 46.0 Hemoglobin (Bld) [Mass/Vol] 12.0 g/dL See Below [facility] Work Phone: Comment on above: Reference Range: 12. 0 - 16.0 MCHC (RBC) [Mass/Vol] 30.8 g/dL below low threshold See Below [facility] Work Phone: Comment on above: Reference Range: 32. 0 - 36.0 MCV (RBC) [Entitic vol] 107 fL above high threshold 80 - 100 [facility] Work Phone: Platelets (Bld) [#/Vol] 235 10*3/uL 150 - 450 [facility] Work Phone: RBC (Bld) [#/Vol] 3.64 {x10E12/L} below low threshold See Below [facility] Work Phone: Comment on above: Reference Range: 4.0 0 - 5.20 WBC (Bld) [#/Vol] 6.6 10*3/uL 4.4 - 11.3 [facility] Work Phone: No Panel Informationon 10-16 0.0 {/100_WBC} 0.0-0.0 [facility] Work Phone: 43 {mL/min/1.73m2} Abnormal >90 [facility] Work Phone: Comment on above: CALCULATIONS OF ALVARO MATED GFR ARE PERFORMED USING THE 2020 CKD-EPI STUDY REFIT EQUATION WITHOUT THE RACE VARIABLE FOR THE IDMS-TRACEABLE CREATININE METHODS.https://jasn.asnjournals.org/content/early/ N.1922763286 Blood Pressure Cuff Sizeon 0 08-14-2021 Blood Pressure Cuff Size Adult [facility] [address] [place] Work Phone: Blood Pressure Cuff Sizeon 0 04-11-2021 Blood Pressure Cuff Size Adult [facility] Work Phone: Blood Pressure Cuff Sizeon 0 04-05-2021 Blood Pressure Cuff Size Adult [facility] Work Phone: Echocardiogramon 04-04-2021 Echocardiography Please click on the link to view the study images Normal [facility] Work Phone: Complete Blood Count + Diffe rentialon 04-03-2021 Basophils/100 WBC (Bld) 1.2 % 0.0 - 2.0 [facility] Work Phone: [phone] Erythrocyte distribution width (RBC) [Ratio] 14.8 % above high threshold See Below [facility] Work Phone: [phone] Comment on above: Reference Range: 11. 5 - 14.5 Hematocrit (Bld) [Volume fraction] 37.3 % See Below [facility] Work Phone: [phone] Comment on above: Reference Range: 36. 0 - 46.0 Hemoglobin (Bld) [Mass/Vol] 11.8 g/dL below low threshold See Below [facility] Work Phone: [phone] Comment on above: Reference Range: 12. 0 - 16.0 Lymphocytes/100 WBC (Bld) 39.5 % See Below [facility] Work Phone: Comment on above: Reference Range: 13. 0 - 44.0 MCHC (RBC) [Mass/Vol] 31.6 g/dL below low threshold See Below [facility] Work Phone: [phone] Comment on above: Reference Range: 32. 0 - 36.0 MCV (RBC) [Entitic vol] 105 fL above high threshold 80 - 100 [facility] Work Phone: [phone] Monocytes/100 WBC (Bld) 7.0 % 2.0 - 10.0 [facility] Work Phone: Neutrophils/100 WBC (Bld) 49.1 % See Below [facility] Work Phone: Comment on above: Reference Range: 40. 0 - 80.0 Platelets (Bld) [#/Vol] 223 10*3/uL 150 - 450 [facility] Work Phone: [phone] RBC (Bld) [#/Vol] 3.56 {x10E12/L} below low threshold See Below [facility] Work Phone: [phone] Comment on above: Reference Range: 4.0 0 - 5.20 WBC (Bld) [#/Vol] 5.8 10*3/uL 4.4 - 11.3 [facility] Work Phone: Complete Blood Count + Differential 0.07 {x10E9/L} See Below [facility] Work Phone: Comment on above: Reference Range: 0.0 0 - 0.10 Complete Blood Count + Differential 0.17 {x10E9/L} See Below [facility] Work Phone: Comment on above: Reference Range: 0.0 0 - 0.40 Complete Blood Count + Differential 0.41 {x10E9/L} See Below [facility] Work Phone: Comment on above: Reference Range: 0.0 5 - 0.80 Complete Blood Count + Differential 2.30 {x10E9/L} See Below [facility] Work Phone: Comment on above: Reference Range: 0.8 0 - 3.00 Complete Blood Count + Differential 2.86 {x10E9/L} See Below [facility] Work Phone: Comment on above: Reference Range: 1.6 0 - 5.50 Complete Blood Count + Differential 2.9 % 0.0 - 6.0 [facility] Work Phone: Complete Blood Count + Differential 0.3 % 0.0 - 0.9 [facility] Work Phone: Comment on above: Immature Granulocyte Count (IG) includes promyelocytes, myelocytes and metamyelocytes but does not include bands. Percent differential counts (%) should be interpreted in the context of the absolute cell counts (cells/L). Complete Blood Count + Differential 0.0 {/100_WBC} 0.0-0.0 [facility] Work Phone: Laboratory - Chemistry and C hemistry - challengeon 04-03-2021 Albumin BCP dye [Mass/Vol] 3.7 g/dL 3.4 - 5.0 [facility] Work Phone: ALP [Catalytic activity/Vol] 51 U/L 33 - 136 [facility] Work Phone: ALT With P-5'-P [Catalytic activity/Vol] 14 U/L 7 - 45 [facility] Work Phone: Comment on above: Patients treated wit h Sulfasalazine may generate falsely decreased results for ALT. Anion gap [Moles/Vol] 15 mmol/L 10 - 20 [facility] Work Phone: AST With P-5'-P [Catalytic activity/Vol] 18 U/L 9 - 39 [facility] Work Phone: Bilirubin [Mass/Vol] 0.5 mg/dL 0.0 - 1.2 [facility] Work Phone: Calcium [Mass/Vol] 9.3 mg/dL 8.6 - 10.6 [facility] Work Phone: Chloride [Moles/Vol] 107 mmol/L 98 - 107 [facility] Work Phone: CO2 [Moles/Vol] 27 mmol/L 21 - 32 [facility] Work Phone: Creatinine [Mass/Vol] 1.08 mg/dL above high threshold See Below [facility] Work Phone: Comment on above: Reference Range: 0.5 0 - 1.05 Glucose [Mass/Vol] 85 mg/dL 74 - 99 [facility] Work Phone: Potassium [Moles/Vol] 4.8 mmol/L 3.5 - 5.3 [facility] Work Phone: Protein [Mass/Vol] 6.5 g/dL 6.4 - 8.2 [facility] Work Phone: Sodium [Moles/Vol] 144 mmol/L 136 - 145 [facility] Work Phone: Urea nitrogen [Mass/Vol] 23 mg/dL 6 - 23 [facility] Work Phone: Lipid Panelon 04-03-2021 Cholesterol [Mass/Vol] 146 mg/dL 0 - 199 [facility] Work Phone: Comment on above: . AGE [...] dosing. Cholesterol in HDL [Mass/Vol] 51.2 mg/dL [employer] Work Phone: Comment on above: . AGE VERY LOW LOW N ORMAL HIGH 0-19 Y < 35 < 40 40-45 ---- 20- 24 Y ---- < 40 >45 ---- >24 Y ---- < 40 40-60 >60. Cholesterol in LDL [Mass/Vol] 75 mg/dL 0 - 99 [employer] Work Phone: Comment on above: . NEAR BORD AGE TORI RABLE OPTIMAL HIGH HIGH VERY HIGH 0-19 Y 0 - 109 --- 110-129 >/= 130 ---- 20-24 Y 0 - 119 --- 120-159 >/= 160 ---- >24 Y 0 - 99 100-129 130-159 160-189 >/=190. Cholesterol.total/Cho lesterol in HDL [Mass ratio] 2.9 {ratio} [employer] Work Phone: Comment on above: REF VALUESDESIRABLE < 3.4HIGH RISK > 5.0 Triglyceride [Mass/Vol] 98 mg/dL 0 - 149 [employer] Work Phone: Comment on above: . AGE [...] Panel 20 mg/dL 0 - 40 [facility] Work Phone: No Panel Informationon 04-03 50 {mL/min/1.73m2} Abnormal >90 [facility] Work Phone: Comment on above: CALCULATIONS OF ALVARO MATED GFR ARE PERFORMED USING THE 2020 CKD-EPI STUDY REFIT EQUATION WITHOUT THE RACE VARIABLE FOR THE IDMS-TRACEABLE CREATININE METHODS.https://jasn.asnjournals.org/content// N.0295195495 Blood Pressure Cuff Sizeon 0 03-08-2021 Fall risk assessment a) No falls within the last year [facility] Work Phone: Tobacco use status CP b) No [facility] Work Phone: Blood Pressure Cuff Size Adult [facility] Work Phone: Laboratory - Chemistry and C hemistry - challengeon 01-15-2021 Anion gap [Moles/Vol] 12 mmol/L 10 - 20 [facility] Work Phone: Calcium [Mass/Vol] 9.8 mg/dL 8.6 - 10.6 [facility] Work Phone: Chloride [Moles/Vol] 106 mmol/L 98 - 107 [facility] Work Phone: CO2 [Moles/Vol] 27 mmol/L 21 - 32 [facility] Work Phone: Creatinine [Mass/Vol] 1.08 mg/dL above high threshold See Below [facility] Work Phone: Comment on above: Reference Range: 0.5 0 - 1.05 Glucose [Mass/Vol] 90 mg/dL 74 - 99 [facility] Work Phone: Potassium [Moles/Vol] 4.6 mmol/L 3.5 - 5.3 [facility] Work Phone: Sodium [Moles/Vol] 140 mmol/L 136 - 145 [facility] Work Phone: Urea nitrogen [Mass/Vol] 23 mg/dL 6 - 23 [facility] Work Phone: Laboratory - Hematology and Cell countson 01-15-2021 Erythrocyte distribution width (RBC) [Ratio] 13.2 % See Below [facility] Work Phone: Comment on above: Reference Range: 11. 5 - 14.5 Hematocrit (Bld) [Volume fraction] 36.9 % See Below [facility] Work Phone: Comment on above: Reference Range: 36. 0 - 46.0 Hemoglobin (Bld) [Mass/Vol] 11.5 g/dL below low threshold See Below [facility] Work Phone: Comment on above: Reference Range: 12. 0 - 16.0 MCHC (RBC) [Mass/Vol] 31.2 g/dL below low threshold See Below [facility] Work Phone: Comment on above: Reference Range: 32. 0 - 36.0 MCV (RBC) [Entitic vol] 106 fL above high threshold 80 - 100 [facility] Work Phone: Platelets (Bld) [#/Vol] 233 10*3/uL 150 - 450 [facility] Work Phone: RBC (Bld) [#/Vol] 3.47 {x10E12/L} below low threshold See Below [facility] Work Phone: Comment on above: [...] [facility] Work Phone: 0.0 {/100_WBC} 0.0-0.0 [facility] Work Phone: Tobacco Screening.on Tobacco use status CPHS b) No [facility] Work Phone: IO UA (automated w/o microsc opy)on 10-29-2020 Protein (U) [Mass/Vol] Trace [facility] Work Phone: IO UA (automated w/o microscopy) Negative [facility] Work Phone: IO UA (automated w/o microscopy) Normal (0.2-1.0 mg/dl) [facility] Work Phone: IO UA (automated w/o microscopy) 6.0 1 [facility] Work Phone: IO UA (automated w/o microscopy) 1.020 1 [facility] Work Phone: IO UA (automated w/o microscopy) Clear [facility] Work Phone: IO UA (automated w/o microscopy) Yellow [facility] Work Phone: Tobacco Screening.on Last menstrual period start date hyst [facility] Work Phone: Tobacco use status CPHS b) No [facility] Work Phone: Laboratory - Chemistry and C hemistry - challengeon 10-24-2020 Anion gap [Moles/Vol] 15 mmol/L 10 - 20 [facility] Work Phone: Calcium [Mass/Vol] 9.5 mg/dL 8.6 - 10.6 [facility] Work Phone: Chloride [Moles/Vol] 103 mmol/L 98 - 107 [facility] Work Phone: CO2 [Moles/Vol] 25 mmol/L 21 - 32 [facility] Work Phone: Creatinine [Mass/Vol] 0.88 mg/dL See Below [facility] Work Phone: Comment on above: Reference Range: 0.5 0 - 1.05 Glucose [Mass/Vol] 102 mg/dL above high threshold 74 - 99 [facility] Work Phone: Potassium [Moles/Vol] 4.5 mmol/L 3.5 - 5.3 [facility] Work Phone: Sodium [Moles/Vol] 138 mmol/L 136 - 145 [facility] Work Phone: Urea nitrogen [Mass/Vol] 19 mg/dL 6 - 23 [facility] Work Phone: Laboratory - Hematology and Cell countson 10-24-2020 Erythrocyte distribution width (RBC) [Ratio] 14.5 % See Below [facility] Work Phone: Comment on above: Reference Range: 11. 5 - 14.5 Hematocrit (Bld) [Volume fraction] 36.8 % See Below [facility] Work Phone: Comment on above: Reference Range: 36. 0 - 46.0 Hemoglobin (Bld) [Mass/Vol] 11.5 g/dL below low threshold See Below [facility] Work Phone: Comment on above: Reference Range: 12. 0 - 16.0 MCHC (RBC) [Mass/Vol] 31.3 g/dL below low threshold See Below [facility] Work Phone: Comment on above: Reference Range: 32. 0 - 36.0 MCV (RBC) [Entitic vol] 105 fL above high threshold 80 - 100 [facility] Work Phone: Platelets (Bld) [#/Vol] 450 10*3/uL 150 - 450 [facility] Work Phone: RBC (Bld) [#/Vol] 3.52 {x10E12/L} below low threshold See Below [facility] Work Phone: Comment on above: Reference Range: 4.0 0 - 5.20 WBC (Bld) [#/Vol] 9.1 10*3/uL 4.4 - 11.3 [facility] Work Phone: No Panel Informationon 10-24 0.0 {/100_WBC} 0.0-0.0 [facility] Work Phone: >60 >60 [facility] Work Phone: Comment on above: CALCULATIONS OF ALVARO MATED GFR ARE PERFORMED USING THE MDRD STUDY EQUATION FOR THE IDMS-TRACEABLE CREATININE METHODS. CLIN CHEM 2007;53:766-72 Comp Panel with Mg Reflexon 10-22-2020 ALP [Catalytic activity/Vol] 73 U/L Normal 38-126 [facility] Comment on above: Performed By: #### Fernando Hammond CMP3M #### [employer] [facility] [address] [place] [address] ALT [Catalytic activity/Vol] 23 U/L Normal 0-34 [facility] Comment on above: Result Comment: The ALT test is performed by an updated assay method. Please note that the reference intervals have been changed and are now sex specific. Performed By: #### Fernando Hammond CMP3M #### [employer] [facility] [address] [place] [address] AST [Catalytic activity/Vol] 49 U/L High 15-46 [facility] Comment on above: Performed By: #### Fernando Hammond CMP3M #### [employer] [facility] [address] [place] [address] Calcium [Mass/Vol] 10.0 mg/dL Normal 8.4-10.4 [facility] Comment on above: Performed By: #### Fernando Hammond CMP3M #### [facility] [employer] [facility] [address] [place] [address] Glucose [Mass/Vol] 108 mg/dL High 70-100 [facility] Comment on above: Performed By: #### M G3, CMP3M #### [facility] [address] [place] [address] Protein [Mass/Vol] 6.9 g/dL Normal 6.3-8.2 [facility] Comment on above: Performed By: #### M G3, CMP3M #### [facility] [address] [place] [address] Urea nitrogen [Mass/Vol] 16 mg/dL Normal 9-20 [facility] Comment on above: Performed By: #### M G3, CMP3M #### [facility] [address] [place] [address] Anion gap [Moles/Vol] 7 mmol/L Normal 3-13 [facility] Comment on above: Performed By: #### Fernando G3, CMP3M #### [facility] [address] [place] [address] Bilirubin [Mass/Vol] 0.7 mg/dL Normal 0.2-1.3 [facility] Comment on above: Performed By: #### M G3, CMP3M #### [facility] [address] [place] [address] CO2 [Moles/Vol] 25 mmol/L Normal 22-30 [facility] Comment on above: Performed By: #### M G3, CMP3M #### [facility] [address] [place] [address] Creatinine [Mass/Vol] 0.69 mg/dL Normal 0.52-1.25 [facility] Comment on above: Performed By: #### M G3, CMP3M #### [facility] [address] [place] [address] GFR/1.73 sq M.predicted among blacks MDRD (S/P/Bld) [Vol rate/Area] mL/min/{1.73_m2} Normal >60 [facility] Comment on above: Performed By: #### M G3, CMP3M #### [facility] [address] [place] [address] GFR/1.73 sq M.predicted among non-blacks MDRD (S/P/Bld) [Vol rate/Area] 79.6 mL/min/{1.73_m2} Normal >60 [facility] Comment on above: Result Comment: KDIG [...] Performed By: #### Fernando Hammond CMP3M #### [facility] [address] [place] [address] Albumin [Mass/Vol] 3.4 g/dL Low 3.5-5.0 [facility] Comment on above: Performed By: #### Fernando Hammond CMP3M #### [facility] [address] [place] [address] Chloride [Moles/Vol] 105 mmol/L Normal 98-107 [facility] Comment on above: Performed By: #### Fernando Hammond CMP3M #### [facility] [address] [place] [address] Potassium [Moles/Vol] 5.3 mmol/L High 3.5-5.1 [facility] Comment on above: Performed By: #### Fernando Hammond CMP3M #### [facility] [address] [place] [address] Sodium [Moles/Vol] 137 mmol/L Normal 135-145 [facility] Comment on above: Performed By: #### Fernando Hammond CMP3M #### [facility] [address] [place] [address] Hemogram w/ Autodiffon 10-22 Abs Baso Cnt 0.1 10*3/uL Normal 0.0-0.2 [facility] Comment on above: Performed By: #### Fernando Hammond CMP3M #### [facility] [address] [place] [address] Abs Neutrophile Cnt 6.0 10*3/uL Normal 1.8-7.0 [facility] Comment on above: Performed By: #### Fernando Hammond CMP3M #### [facility] [address] [place] [address] Basophils/100 WBC (Bld) 0.8 % Normal 0.0-2.0 [facility] Comment on above: Performed By: #### Fernando Hammond CMP3M #### [facility] [address] [place] [address] Eosinophils (Bld) [#/Vol] 0.1 10*3/uL Normal 0.0-0.5 [facility] Comment on above: Performed By: #### Fernando Hammond CMP3M #### [facility] [address] [place] [address] Eosinophils/100 WBC (Bld) 1.5 % Normal 1.0-6.0 [facility] Comment on above: Performed By: #### Fernando Hammond CMP3M #### [facility] [address] [place] [address] Erythrocyte distribution width (RBC) [Ratio] 13.9 % Normal 11.5-14.5 [facility] Comment on above: Performed By: #### Fernando Hammond CMP3M #### [facility] [address] [place] [address] Granulocytes/100 WBC (Bld) 66.3 % Normal 40.0-80.0 [facility] Comment on above: Performed By: #### Fernando Hammond CMP3M #### [facility] [address] [place] [address] Hematocrit (Bld) [Volume fraction] 35.4 % Normal 35.0-47.0 [facility] Comment on above: Performed By: #### Fernando Hammond CMP3M #### [facility] [address] [place] [address] Hemoglobin (Bld) [Mass/Vol] 12.4 g/dL Normal 11.7-16.0 [facility] Comment on above: Performed By: #### Fernando Hammond CMP3M #### [facility] [address] [place] [address] Lymphocytes (Bld) [#/Vol] 2.2 10*3/uL Normal 1.0-4.3 [facility] Comment on above: Performed By: #### Fernando Hammond CMP3M #### [facility] [address] [place] [address] Lymphocytes/100 WBC (Bld) 23.6 % Normal 20.0-40.0 [facility] Comment on above: Performed By: #### Fernando Hammond CMP3M #### [facility] [address] [place] [address] MCH (RBC) [Entitic mass] 34.3 pg High 26.0-34.0 [facility] Comment on above: Performed By: #### Fernando Hammond CMP3M #### [facility] [address] [place] [address] MCHC 34.9 % Normal 32.0-36.0 [facility] Comment on above: Performed By: #### Fernando Hammond CMP3M #### [facility] [address] [place] [address] MCV (RBC) [Entitic vol] 98.3 fL High 79.0-98.0 [facility] Comment on above: Performed By: #### Fernando Hammond CMP3M #### [facility] [address] [place] [address] Monocytes (Bld) [#/Vol] 0.7 10*3/uL Normal 0.0-0.8 [facility] Comment on above: Performed By: #### Fernando Hammond CMP3M #### [facility] [address] [place] [address] Monocytes/100 WBC (Bld) 7.8 % Normal 2.0-10.0 [facility] Comment on above: Performed By: #### Fernando Hammond CMP3M #### [facility] [address] [place] [address] Platelet mean volume (Bld) [Entitic vol] 7.0 fL Low 7.4-10.4 [facility] Comment on above: Performed By: #### Fernando Hammond CMP3M #### [facility] [address] [place] [address] Platelets (Bld) [#/Vol] 301 10*3/uL Normal 140-440 [facility] Comment on above: Performed By: #### Fernando Hammond CMP3M #### [facility] [address] [place] [address] RBC (Bld) [#/Vol] 3.60 10*6/uL Low 3.80-5.20 [facility] Comment on above: Performed By: #### Fernando Hammond CMP3M #### [facility] [address] [place] [address] WBC (Bld) [#/Vol] 9.1 10*3/uL Normal 3.6-10.7 [facility] Comment on above: Performed By: #### Fernando Hammond CMP3M #### [facility] [address] [place] [address] Comp Panel with Mg Reflexon 10-21-2020 ALP [Catalytic activity/Vol] 72 U/L Normal 38-126 [facility] Comment on above: Performed By: #### Fernando Hammond CMP3M #### [facility] [address] [place] [address] ALT [Catalytic activity/Vol] 14 U/L Normal 0-34 [facility] Comment on above: Result Comment: The ALT test is performed by an updated assay method. Please note that the reference intervals have been changed and are now sex specific. Performed By: #### Fernando Hammond CMP3M #### [facility] [address] [place] [address] Calcium [Mass/Vol] 9.3 mg/dL Normal 8.4-10.4 [facility] Comment on above: Performed By: #### Fernando Hammond CMP3M #### [facility] [address] [place] [address] Glucose [Mass/Vol] 101 mg/dL High 70-100 [facility] Comment on above: Performed By: #### Fernando G3 CMP3M #### [facility] [address] [place] [address] Urea nitrogen [Mass/Vol] 11 mg/dL Normal 9-20 [facility] Comment on above: Performed By: #### Fernando G3 CMP3M #### [facility] [address] [place] [address] Anion gap [Moles/Vol] 5 mmol/L Normal 3-13 [facility] Comment on above: Performed By: #### Fernando Hammond CMP3M #### [facility] [address] [place] [address] AST [Catalytic activity/Vol] 22 U/L Normal 15-46 [facility] Comment on above: Performed By: #### Fernando Hammond CMP3M #### [facility] [address] [place] [address] Bilirubin [Mass/Vol] 0.6 mg/dL Normal 0.2-1.3 [facility] Comment on above: Performed By: #### Fernando Hammond CMP3M #### [facility] [address] [place] [address] CO2 [Moles/Vol] 27 mmol/L Normal 22-30 [facility] Comment on above: Performed By: #### Fernando Hammond CMP3M #### [facility] [address] [place] [address] Creatinine [Mass/Vol] 0.55 mg/dL Normal 0.52-1.25 [facility] Comment on above: Performed By: #### Fernando Hammond CMP3M #### [facility] [address] [place] [address] GFR/1.73 sq M.predicted among blacks MDRD (S/P/Bld) [Vol rate/Area] mL/min/{1.73_m2} Normal >60 [facility] Comment on above: Performed By: #### Fernando G3, CMP3M #### [facility] [address] [place] [address] GFR/1.73 sq M.predicted among non-blacks MDRD (S/P/Bld) [Vol rate/Area] 85.8 mL/min/{1.73_m2} Normal >60 [facility] Comment on above: Result Comment: KDIG [...] tubular creatinine secretion. Performed By: #### Fernando G3 CMP3M #### [facility] [address] [place] [address] Protein [Mass/Vol] 6.5 g/dL Normal 6.3-8.2 [facility] Comment on above: Performed By: #### Fernando G3, CMP3M #### [facility] [address] [place] [address] Potassium [Moles/Vol] 4.6 mmol/L Normal 3.5-5.1 [facility] Comment on above: Performed By: #### Fernando G3, CMP3M #### [facility] [address] [place] [address] Sodium [Moles/Vol] 138 mmol/L Normal 135-145 [facility] Comment on above: Performed By: #### M G3, CMP3M #### [facility] [address] [place] [address] Albumin [Mass/Vol] 3.2 g/dL Low 3.5-5.0 [facility] Comment on above: Performed By: #### M G3, CMP3M #### [facility] [address] [place] [address] Chloride [Moles/Vol] 107 mmol/L Normal 98-107 [facility] Comment on above: Performed By: #### Fernando G3, CMP3M #### [facility] [address] [place] [address] Hemogram w/ Autodiffon 10-21 Abs Baso Cnt 0.0 10*3/uL Normal 0.0-0.2 [facility] Comment on above: Performed By: #### M G3, CMP3M #### [facility] [address] [place] [address] Abs Neutrophile Cnt 8.4 10*3/uL High 1.8-7.0 [facility] Comment on above: Performed By: #### M G3, CMP3M #### [facility] [address] [place] [address] Basophils/100 WBC (Bld) 0.4 % Normal 0.0-2.0 [facility] Comment on above: Performed By: #### M G3, CMP3M #### [facility] [address] [place] [address] Eosinophils (Bld) [#/Vol] 0.2 10*3/uL Normal 0.0-0.5 [facility] Comment on above: Performed By: #### M G3, CMP3M #### [facility] [address] [place] [address] Eosinophils/100 WBC (Bld) 1.3 % Normal 1.0-6.0 [facility] Comment on above: Performed By: #### M G3, CMP3M #### [facility] [address] [place] [address] Erythrocyte distribution width (RBC) [Ratio] 13.7 % Normal 11.5-14.5 [facility] Comment on above: Performed By: #### M G3, CMP3M #### [facility] [address] [place] [address] Granulocytes/100 WBC (Bld) 72.7 % Normal 40.0-80.0 [facility] Comment on above: Performed By: #### M G3, CMP3M #### [facility] [address] [place] [address] Hematocrit (Bld) [Volume fraction] 34.3 % Low 35.0-47.0 [facility] Comment on above: Performed By: #### M G3, CMP3M #### [facility] [address] [place] [address] Hemoglobin (Bld) [Mass/Vol] 11.5 g/dL Low 11.7-16.0 [facility] Comment on above: Performed By: #### M G3, CMP3M #### [facility] [address] [place] [address] Lymphocytes (Bld) [#/Vol] 2.0 10*3/uL Normal 1.0-4.3 [facility] Comment on above: Performed By: #### M G3, CMP3M #### [facility] [address] [place] [address] Lymphocytes/100 WBC (Bld) 17.4 % Low 20.0-40.0 [facility] Comment on above: Performed By: #### M G3, CMP3M #### [facility] [address] [place] [address] MCH (RBC) [Entitic mass] 33.1 pg Normal 26.0-34.0 [facility] Comment on above: Performed By: #### M G3, CMP3M #### [facility] [address] [place] [address] MCHC 33.5 % Normal 32.0-36.0 [facility] Comment on above: Performed By: #### M G3, CMP3M #### [facility] [address] [place] [address] MCV (RBC) [Entitic vol] 98.7 fL High 79.0-98.0 [facility] Comment on above: Performed By: #### M G3, CMP3M #### [facility] [address] [place] [address] Monocytes (Bld) [#/Vol] 0.9 10*3/uL High 0.0-0.8 [facility] Comment on above: Performed By: #### M G3, CMP3M #### [facility] [address] [place] [address] Monocytes/100 WBC (Bld) 8.2 % Normal 2.0-10.0 [facility] Comment on above: Performed By: #### M G3, CMP3M #### [facility] [address] [place] [address] Platelet mean volume (Bld) [Entitic vol] 7.6 fL Normal 7.4-10.4 [facility] Comment on above: Performed By: #### Fernando G3, CMP3M #### [facility] [address] [place] [address] Platelets (Bld) [#/Vol] 284 10*3/uL Normal 140-440 [facility] Comment on above: Performed By: #### Fernando Hammond, CMP3M #### [facility] [address] [place] [address] RBC (Bld) [#/Vol] 3.47 10*6/uL Low 3.80-5.20 [facility] Comment on above: Performed By: #### Fernando Hammond, CMP3M #### [facility] [address] [place] [address] WBC (Bld) [#/Vol] 11.5 10*3/uL High 3.6-10.7 [facility] Comment on above: Performed By: #### Fernando Hammond CMP3M #### [facility] [address] [place] [address] CULTURE BLOODon 10-20-2020 Microscopic examination of blood, culture CULTURE BLOOD --> Status: F No growth at 5 days. Normal [facility] Comment on above: Performed By: #### Fernando Hammond, CMP3M #### [facility] [address] [place] [address] CULTURE BLOOD (Two)on 2020 Microscopic examination of blood, culture CULTURE BLOOD (Two) --> Status: F No growth at 5 days. Normal [facility] Comment on above: Performed By: #### Fernando Hammond CMP3M #### [facility] [address] [place] [address] Comp Panel with Mg Reflexon 10-19-2020 ALP [Catalytic activity/Vol] 70 U/L Normal 38-126 [facility] Comment on above: Performed By: #### Fernando Hammond, CMP3M #### [facility] [address] [place] [address] ALT [Catalytic activity/Vol] 16 U/L Normal 0-34 [facility] Comment on above: Result Comment: The ALT test is performed by an updated assay method. Please note that the reference intervals have been changed and are now sex specific. Performed By: #### Fernando Hammond CMP3M #### [facility] [address] [place] [address] Calcium [Mass/Vol] 8.3 mg/dL Low 8.4-10.4 [facility] Comment on above: Performed By: #### Fernando G3 CMP3M #### [facility] [address] [place] [address] Glucose [Mass/Vol] 108 mg/dL High 70-100 [facility] Comment on above: Performed By: #### Fernando Hammond CMP3M #### [facility] [address] [place] [address] Urea nitrogen [Mass/Vol] 11 mg/dL Normal 9-20 [facility] Comment on above: Performed By: #### Fernando Hammond CMP3M #### [facility] [address] [place] [address] Anion gap [Moles/Vol] 2 mmol/L Low 3-13 [facility] Comment on above: Performed By: #### Fernando Hammond CMP3M #### [facility] [address] [place] [address] AST [Catalytic activity/Vol] 35 U/L Normal 15-46 [facility] Comment on above: Performed By: #### Fernando Hammond CMP3M #### [facility] [address] [place] [address] Bilirubin [Mass/Vol] 0.8 mg/dL Normal 0.2-1.3 [facility] Comment on above: Performed By: #### Fernando Hammond CMP3M #### [facility] [address] [place] [address] CO2 [Moles/Vol] 31 mmol/L High 22-30 [facility] Comment on above: Performed By: #### Fernando G3 CMP3M #### [facility] [address] [place] [address] Creatinine [Mass/Vol] 0.48 mg/dL Low 0.52-1.25 [facility] Comment on above: Performed By: #### Fernando Hammond CMP3M #### [facility] [address] [place] [address] GFR/1.73 sq M.predicted among blacks MDRD (S/P/Bld) [Vol rate/Area] mL/min/{1.73_m2} Normal >60 [facility] Comment on above: Performed By: #### Fernando Hammond CMP3M #### [facility] [address] [place] [address] GFR/1.73 sq M.predicted among non-blacks MDRD (S/P/Bld) [Vol rate/Area] 89.7 mL/min/{1.73_m2} Normal >60 [facility] Comment on above: Result Comment: KDIG [...] Performed By: #### Fernando Hammond CMP3M #### [facility] [address] [place] [address] Protein [Mass/Vol] 6.2 g/dL Low 6.3-8.2 [facility] Comment on above: Performed By: #### Fernando Hammond CMP3M #### [facility] [address] [place] [address] Chloride [Moles/Vol] 104 mmol/L Normal 98-107 [facility] Comment on above: Performed By: #### Fernando Hammond CMP3M #### [facility] [address] [place] [address] Potassium [Moles/Vol] 3.7 mmol/L Normal 3.5-5.1 [facility] Comment on above: Performed By: #### Fernando Hammond CMP3M #### [facility] [address] [place] [address] Sodium [Moles/Vol] 137 mmol/L Normal 135-145 [facility] Comment on above: Performed By: #### Fernando Hammond CMP3M #### [facility] [address] [place] [address] Albumin [Mass/Vol] 3.1 g/dL Low 3.5-5.0 [facility] Comment on above: Performed By: #### Fernando Hammond CMP3M #### [facility] [address] [place] [address] Hemogram w/ Autodiffon 10-19 Abs Baso Cnt 0.1 10*3/uL Normal 0.0-0.2 [facility] Comment on above: Performed By: #### Fernando Hammond CMP3M #### [facility] [address] [place] [address] Abs Neutrophile Cnt 5.6 10*3/uL Normal 1.8-7.0 [facility] Comment on above: Performed By: #### Fernando Hammond CMP3M #### [facility] [address] [place] [address] Basophils/100 WBC (Bld) 0.7 % Normal 0.0-2.0 [facility] Comment on above: Performed By: #### Fernando Hammond CMP3M #### [facility] [address] [place] [address] Eosinophils (Bld) [#/Vol] 0.1 10*3/uL Normal 0.0-0.5 [facility] Comment on above: Performed By: #### Fernando Hammond CMP3M #### [facility] [address] [place] [address] Eosinophils/100 WBC (Bld) 0.9 % Low 1.0-6.0 [facility] Comment on above: Performed By: #### M G3, CMP3M #### [facility] [address] [place] [address] Erythrocyte distribution width (RBC) [Ratio] 13.2 % Normal 11.5-14.5 [facility] Comment on above: Performed By: #### Fernando G3, CMP3M #### [facility] [address] [place] [address] Granulocytes/100 WBC (Bld) 65.2 % Normal 40.0-80.0 [facility] Comment on above: Performed By: #### Fernando G3, CMP3M #### [facility] [address] [place] [address] Hematocrit (Bld) [Volume fraction] 32.6 % Low 35.0-47.0 [facility] Comment on above: Performed By: #### Fernando Hammond, CMP3M #### [facility] [address] [place] [address] Hemoglobin (Bld) [Mass/Vol] 11.2 g/dL Low 11.7-16.0 [facility] Comment on above: Performed By: #### Fernando Hammond, CMP3M #### [facility] [address] [place] [address] Lymphocytes (Bld) [#/Vol] 1.7 10*3/uL Normal 1.0-4.3 [facility] Comment on above: Performed By: #### Fernando G3, CMP3M #### [facility] [address] [place] [address] Lymphocytes/100 WBC (Bld) 19.6 % Low 20.0-40.0 [facility] Comment on above: Performed By: #### Fernando G3, CMP3M #### [facility] [address] [place] [address] MCH (RBC) [Entitic mass] 33.6 pg Normal 26.0-34.0 [facility] Comment on above: Performed By: #### Fernando G3, CMP3M #### [facility] [address] [place] [address] MCHC 34.3 % Normal 32.0-36.0 [facility] Comment on above: Performed By: #### Fernando Hammond, CMP3M #### [facility] [address] [place] [address] MCV (RBC) [Entitic vol] 98.1 fL High 79.0-98.0 [facility] Comment on above: Performed By: #### Fernando G3, CMP3M #### [facility] [address] [place] [address] Monocytes (Bld) [#/Vol] 1.2 10*3/uL High 0.0-0.8 [facility] Comment on above: Performed By: #### Fernando Hammond, CMP3M #### [facility] [address] [place] [address] Monocytes/100 WBC (Bld) 13.6 % High 2.0-10.0 [facility] Comment on above: Performed By: #### Fernando Hammond CMP3M #### [facility] [address] [place] [address] Platelet mean volume (Bld) [Entitic vol] 7.5 fL Normal 7.4-10.4 [facility] Comment on above: Performed By: #### Fernando Hammond CMP3M #### [facility] [address] [place] [address] Platelets (Bld) [#/Vol] 231 10*3/uL Normal 140-440 [facility] Comment on above: Performed By: #### Fernando Hammond, CMP3M #### [facility] [address] [place] [address] RBC (Bld) [#/Vol] 3.33 10*6/uL Low 3.80-5.20 [facility] Comment on above: Performed By: #### Fernando G3, CMP3M #### [facility] [address] [place] [address] WBC (Bld) [#/Vol] 8.7 10*3/uL Normal 3.6-10.7 [facility] Comment on above: Performed By: #### Fernando G3, CMP3M #### [facility] [address] [place] [address] Basic Metabolic Panelon 09-0 -2020 Calcium [Mass/Vol] 8.0 mg/dL Low 8.4-10.4 [facility] Comment on above: Performed By: #### M G3, CMP3M #### [facility] [address] [place] [address] Glucose [Mass/Vol] 147 mg/dL High 70-100 [facility] Comment on above: Performed By: #### M G3, CMP3M #### [facility] [address] [place] [address] Urea nitrogen [Mass/Vol] 9 mg/dL Normal 9-20 [facility] Comment on above: Performed By: #### M G3, CMP3M #### [facility] [address] [place] [address] Anion gap [Moles/Vol] 6 mmol/L Normal 3-13 [facility] Comment on above: Performed By: #### M G3, CMP3M #### [facility] [address] [place] [address] CO2 [Moles/Vol] 33 mmol/L High 22-30 [facility] Comment on above: Performed By: #### M G3, CMP3M #### [facility] [address] [place] [address] Creatinine [Mass/Vol] 0.55 mg/dL Normal 0.52-1.25 [facility] Comment on above: Performed By: #### M G3, CMP3M #### [facility] [address] [place] [address] GFR/1.73 sq M.predicted among blacks MDRD (S/P/Bld) [Vol rate/Area] mL/min/{1.73_m2} Normal >60 [facility] Comment on above: Performed By: #### M G3, CMP3M #### [facility] [address] [place] [address] GFR/1.73 sq M.predicted among non-blacks MDRD (S/P/Bld) [Vol rate/Area] 85.8 mL/min/{1.73_m2} Normal >60 [facility] Comment on above: Result Comment: KDIG [...] Performed By: #### Fernando Hammond CMP3M #### [facility] [address] [place] [address] Potassium [Moles/Vol] 3.4 mmol/L Low 3.5-5.1 [facility] Comment on above: Performed By: #### Fernando Hammond CMP3M #### [facility] [address] [place] [address] Chloride [Moles/Vol] 100 mmol/L Normal 98-107 [facility] Comment on above: Performed By: #### Fernando Hammond CMP3M #### [facility] [address] [place] [address] Sodium [Moles/Vol] 139 mmol/L Normal 135-145 [facility] Comment on above: Performed By: #### Fernando G3 CMP3M #### [facility] [address] [place] [address] Calcium [Mass/Vol] 7.9 mg/dL Low 8.4-10.4 [facility] Comment on above: Performed By: #### Fernando G3 CMP3M #### [facility] [address] [place] [address] Anion gap [Moles/Vol] 5 mmol/L Normal 3-13 [facility] Comment on above: Performed By: #### Fernando G3 CMP3M #### [facility] [address] [place] [address] CO2 [Moles/Vol] 34 mmol/L High 22-30 [facility] Comment on above: Performed By: #### Fernando G3 CMP3M #### [facility] [address] [place] [address] Creatinine [Mass/Vol] 0.44 mg/dL Low 0.52-1.25 [facility] Comment on above: Performed By: #### Fernando Hammond CMP3M #### [facility] [address] [place] [address] eGFR OTHER > 90.0 Normal >60 [facility] Comment on above: Result Comment: KDIG [...] Performed By: #### Fernando Hammond CMP3M #### [facility] [address] [place] [address] GFR/1.73 sq M.predicted among blacks MDRD (S/P/Bld) [Vol rate/Area] mL/min/{1.73_m2} Normal >60 [facility] Comment on above: Performed By: #### Fernando Hammond CMP3M #### [facility] [address] [place] [address] Glucose [Mass/Vol] 123 mg/dL High 70-100 [facility] Comment on above: Performed By: #### Fernando Hammond CMP3M #### [facility] [address] [place] [address] Urea nitrogen [Mass/Vol] 5 mg/dL Low 9-20 [facility] Comment on above: Performed By: #### Fernando Hammond CMP3M #### [facility] [address] [place] [address] Chloride [Moles/Vol] 99 mmol/L Normal 98-107 [facility] Comment on above: Performed By: #### Fernando Hammond CMP3M #### [facility] [address] [place] [address] Potassium [Moles/Vol] 2.6 mmol/L Critically low 3.5-5.1 [facility] Comment on above: Performed By: #### Fernando Hammond CMP3M #### [facility] [address] [place] [address] Sodium [Moles/Vol] 138 mmol/L Normal 135-145 [facility] Comment on above: Performed By: #### Fernando Hammond CMP3M #### [facility] [address] [place] [address] Comp Panel with Mg Reflexon 10-18-2020 Calcium [Mass/Vol] 7.8 mg/dL Low 8.4-10.4 [facility] Comment on above: Performed By: #### Fernando Hammond CMP3M #### [facility] [address] [place] [address] ALP [Catalytic activity/Vol] 46 U/L Normal 38-126 [facility] Comment on above: Performed By: #### Fernando Hammond CMP3M #### [facility] [address] [place] [address] ALT [Catalytic activity/Vol] 13 U/L Normal 0-34 [facility] Comment on above: Result Comment: The ALT test is performed by an updated assay method. Please note that the reference intervals have been changed and are now sex specific. Performed By: #### Fernando Hammond CMP3M #### [facility] [address] [place] [address] Anion gap [Moles/Vol] 3 mmol/L Normal 3-13 [facility] Comment on above: Performed By: #### Fernando Hammond CMP3M #### [facility] [address] [place] [address] AST [Catalytic activity/Vol] 30 U/L Normal 15-46 [facility] Comment on above: Performed By: #### Frenando Hammond CMP3M #### [facility] [address] [place] [address] Bilirubin [Mass/Vol] 0.7 mg/dL Normal 0.2-1.3 [facility] Comment on above: Performed By: #### Fernando G3, CMP3M #### [facility] [address] [place] [address] CO2 [Moles/Vol] 33 mmol/L High 22-30 [facility] Comment on above: Performed By: #### M G3, CMP3M #### [facility] [address] [place] [address] Glucose [Mass/Vol] 100 mg/dL Normal 70-100 [facility] Comment on above: Performed By: #### M G3, CMP3M #### [facility] [address] [place] [address] Protein [Mass/Vol] 5.8 g/dL Low 6.3-8.2 [facility] Comment on above: Performed By: #### Fernando G3, CMP3M #### [facility] [address] [place] [address] Urea nitrogen [Mass/Vol] 6 mg/dL Low 9-20 [facility] Comment on above: Performed By: #### Fernando G3, CMP3M #### [facility] [address] [place] [address] Creatinine [Mass/Vol] 0.42 mg/dL Low 0.52-1.25 [facility] Comment on above: Performed By: #### M G3, CMP3M #### [facility] [address] [place] [address] Albumin [Mass/Vol] 2.9 g/dL Low 3.5-5.0 [facility] Comment on above: Performed By: #### M G3, CMP3M #### [facility] [address] [place] [address] Chloride [Moles/Vol] 100 mmol/L Normal 98-107 [facility] Comment on above: Performed By: #### M G3, CMP3M #### [facility] [address] [place] [address] Potassium [Moles/Vol] 2.6 mmol/L Critically low 3.5-5.1 [facility] Comment on above: Performed By: #### Fernando G3, CMP3M #### [facility] [address] [place] [address] Sodium [Moles/Vol] 136 mmol/L Normal 135-145 [facility] Comment on above: Performed By: #### M G3, CMP3M #### [facility] [address] [place] [address] Hemogram w/ Autodiffon 10-18 Abs Baso Cnt 0.0 10*3/uL Normal 0.0-0.2 [facility] Comment on above: Performed By: #### H EMDF #### [facility] [address] [place] [address] Abs Neutrophile Cnt 2.6 10*3/uL Normal 1.8-7.0 [facility] Comment on above: Performed By: #### H EMDF #### [facility] [address] [place] [address] Basophils/100 WBC (Bld) 0.4 % Normal 0.0-2.0 [facility] Comment on above: Performed By: #### H EMDF #### [facility] [address] [place] [address] Eosinophils (Bld) [#/Vol] 0.1 10*3/uL Normal 0.0-0.5 [facility] Comment on above: Performed By: #### H EMDF #### [facility] [address] [place] [address] Eosinophils/100 WBC (Bld) 1.5 % Normal 1.0-6.0 [facility] Comment on above: Performed By: #### H EMDF #### [facility] [address] [place] [address] Erythrocyte distribution width (RBC) [Ratio] 13.5 % Normal 11.5-14.5 [facility] Comment on above: Performed By: #### H EMDF #### [facility] [address] [place] [address] Granulocytes/100 WBC (Bld) 52.8 % Normal 40.0-80.0 [facility] Comment on above: Performed By: #### H EMDF #### [facility] [address] [place] [address] Hematocrit (Bld) [Volume fraction] 31.3 % Low 35.0-47.0 [facility] Comment on above: Performed By: #### H EMDF #### [facility] [address] [place] [address] Hemoglobin (Bld) [Mass/Vol] 10.8 g/dL Low 11.7-16.0 [facility] Comment on above: Performed By: #### H EMDF #### [facility] [address] [place] [address] Lymphocytes (Bld) [#/Vol] 1.4 10*3/uL Normal 1.0-4.3 [facility] Comment on above: Performed By: #### H EMDF #### [facility] [address] [place] [address] Lymphocytes/100 WBC (Bld) 28.7 % Normal 20.0-40.0 [facility] Comment on above: Performed By: #### H EMDF #### [place] [address] [place] [address] MCH (RBC) [Entitic mass] 33.8 pg Normal 26.0-34.0 [facility] Comment on above: Performed By: #### H EMDF #### [facility] [address] [place] [address] MCHC 34.6 % Normal 32.0-36.0 [facility] Comment on above: Performed By: #### H EMDF #### [facility] [address] [place] [address] MCV (RBC) [Entitic vol] 97.9 fL Normal 79.0-98.0 [facility] Comment on above: Performed By: #### H EMDF #### [facility] [address] [place] [address] Monocytes (Bld) [#/Vol] 0.8 10*3/uL Normal 0.0-0.8 [facility] Comment on above: Performed By: #### H EMDF #### [place] [address] [place] [address] Monocytes/100 WBC (Bld) 16.6 % High 2.0-10.0 [facility] Comment on above: Performed By: #### H EMDF #### [facility] [address] [place] [address] Platelet mean volume (Bld) [Entitic vol] 7.2 fL Low 7.4-10.4 [facility] Comment on above: Performed By: #### H EMDF #### [facility] [address] [place] [address] Platelets (Bld) [#/Vol] 201 10*3/uL Normal 140-440 [facility] Comment on above: Performed By: #### H EMDF #### [facility] [address] [place] [address] RBC (Bld) [#/Vol] 3.20 10*6/uL Low 3.80-5.20 [facility] Comment on above: Performed By: #### H EMDF #### [facility] [address] [place] [address] WBC (Bld) [#/Vol] 4.9 10*3/uL Normal 3.6-10.7 [facility] Comment on above: Performed By: #### H EMDF #### [facility] [address] [place] [address] Magnesiumon 10-18-2020 Magnesium [Mass/Vol] 2.1 mg/dL Normal 1.6-2.3 [facility] Comment on above: Performed By: #### M G3, CMP3M #### [facility] [address] [place] [address] Magnesium [Mass/Vol] 1.5 mg/dL Low 1.6-2.3 [facility] Comment on above: Performed By: #### M G3, CMP3M #### [facility] [address] [place] [address] Comp Metabolic Panelon 10-17 ALP [Catalytic activity/Vol] 42 U/L Normal 38-126 [facility] Comment on above: Performed By: #### C MP3M, HEMDF #### [facility] [address] [place] [address] ALT [Catalytic activity/Vol] 14 U/L Normal 0-34 [facility] Comment on above: Result Comment: The ALT test is performed by an updated assay method. Please note that the reference intervals have been changed and are now sex specific. Performed By: #### C MP3M, HEMDF #### [facility] [address] [place] [address] Calcium [Mass/Vol] 8.0 mg/dL Low 8.4-10.4 [facility] Comment on above: Performed By: #### C MP3M, HEMDF #### [facility] [address] [place] [address] Glucose [Mass/Vol] 97 mg/dL Normal 70-100 [facility] Comment on above: Performed By: #### C MP3M, HEMDF #### [facility] [address] [place] [address] Protein [Mass/Vol] 5.5 g/dL Low 6.3-8.2 [facility] Comment on above: Performed By: #### C MP3M, HEMDF #### [facility] [address] [place] [address] Urea nitrogen [Mass/Vol] 10 mg/dL Normal 9-20 [facility] Comment on above: Performed By: #### C MP3M, HEMDF #### [facility] [address] [place] [address] Anion gap [Moles/Vol] 1 mmol/L Low 3-13 [facility] Comment on above: Performed By: #### C MP3M, HEMDF #### [facility] [address] [place] [address] AST [Catalytic activity/Vol] 33 U/L Normal 15-46 [facility] Comment on above: Performed By: #### C MP3M, HEMDF #### [facility] [address] [place] [address] Bilirubin [Mass/Vol] 0.6 mg/dL Normal 0.2-1.3 [facility] Comment on above: Performed By: #### C MP3M, HEMDF #### [facility] [address] [place] [address] CO2 [Moles/Vol] 24 mmol/L Normal 22-30 [facility] Comment on above: Performed By: #### C MP3M, HEMDF #### [facility] [address] [place] [address] Creatinine [Mass/Vol] 0.54 mg/dL Normal 0.52-1.25 [facility] Comment on above: Performed By: #### C MP3M, HEMDF #### [facility] [address] [place] [address] GFR/1.73 sq M.predicted among blacks MDRD (S/P/Bld) [Vol rate/Area] mL/min/{1.73_m2} Normal >60 [facility] Comment on above: Performed By: #### C MP3M, HEMDF #### [facility] [address] [place] [address] GFR/1.73 sq M.predicted among non-blacks MDRD (S/P/Bld) [Vol rate/Area] 86.3 mL/min/{1.73_m2} Normal >60 [facility] Comment on above: Result Comment: KDIG [...] Performed By: #### C MP3M, HEMDF #### [facility] [address] [place] [address] Chloride [Moles/Vol] 115 mmol/L High 98-107 [facility] Comment on above: Performed By: #### C MP3M, HEMDF #### [facility] [address] [place] [address] Potassium [Moles/Vol] 3.5 mmol/L Normal 3.5-5.1 [facility] Comment on above: Performed By: #### C MP3M, HEMDF #### [facility] [address] [place] [address] Sodium [Moles/Vol] 139 mmol/L Normal 135-145 [facility] Comment on above: Performed By: #### C MP3M, HEMDF #### [facility] [address] [place] [address] Albumin [Mass/Vol] 2.6 g/dL Low 3.5-5.0 [facility] Comment on above: Performed By: #### C MP3M, HEMDF #### [facility] [address] [place] [address] Hemogram w/ Autodiffon 10-17 Abs Baso Cnt 0.0 10*3/uL Normal 0.0-0.2 [facility] Comment on above: Performed By: #### C MP3M, HEMDF #### [facility] [address] [place] [address] Abs Neutrophile Cnt 4.4 10*3/uL Normal 1.8-7.0 [facility] Comment on above: Performed By: #### C MP3M, HEMDF #### [facility] [address] [place] [address] Basophils/100 WBC (Bld) 0.3 % Normal 0.0-2.0 [facility] Comment on above: Performed By: #### C MP3M, HEMDF #### [facility] [address] [place] [address] Eosinophils (Bld) [#/Vol] 0.1 10*3/uL Normal 0.0-0.5 [facility] Comment on above: Performed By: #### C MP3M, HEMDF #### [facility] [address] [place] [address] Eosinophils/100 WBC (Bld) 2.0 % Normal 1.0-6.0 [facility] Comment on above: Performed By: #### C MP3M, HEMDF #### [facility] [address] [place] [address] Erythrocyte distribution width (RBC) [Ratio] 13.8 % Normal 11.5-14.5 [facility] Comment on above: Performed By: #### C MP3M, HEMDF #### [facility] [address] [place] [address] Granulocytes/100 WBC (Bld) 69.9 % Normal 40.0-80.0 [facility] Comment on above: Performed By: #### C MP3M, HEMDF #### [facility] [address] [place] [address] Hematocrit (Bld) [Volume fraction] 28.8 % Low 35.0-47.0 [facility] Comment on above: Performed By: #### C MP3M, HEMDF #### [facility] [address] [place] [address] Hemoglobin (Bld) [Mass/Vol] 9.9 g/dL Low 11.7-16.0 [facility] Comment on above: Performed By: #### C MP3M, HEMDF #### [facility] [address] [place] [address] Lymphocytes (Bld) [#/Vol] 1.1 10*3/uL Normal 1.0-4.3 [facility] Comment on above: Performed By: #### C MP3M, HEMDF #### [facility] [address] [place] [address] Lymphocytes/100 WBC (Bld) 17.7 % Low 20.0-40.0 [facility] Comment on above: Performed By: #### C MP3M, HEMDF #### [facility] [address] [place] [address] MCH (RBC) [Entitic mass] 34.4 pg High 26.0-34.0 [facility] [facility] Comment on above: Performed By: #### C MP3M, HEMDF #### [facility] [address] [place] [address] MCHC 34.4 % Normal 32.0-36.0 [facility] Comment on above: Performed By: #### C MP3M, HEMDF #### [facility] [address] [place] [address] MCV (RBC) [Entitic vol] 99.9 fL High 79.0-98.0 [facility] Comment on above: Performed By: #### C MP3M, HEMDF #### [facility] [address] [place] [address] Monocytes (Bld) [#/Vol] 0.6 10*3/uL Normal 0.0-0.8 [facility] Comment on above: Performed By: #### C MP3M, HEMDF #### [facility] [address] [place] [address] Monocytes/100 WBC (Bld) 10.1 % High 2.0-10.0 [facility] Comment on above: Performed By: #### C MP3M, HEMDF #### [facility] [address] [place] [address] Platelet mean volume (Bld) [Entitic vol] 7.3 fL Low 7.4-10.4 [facility] Comment on above: Performed By: #### C MP3M, HEMDF #### [facility] [address] [place] [address] Platelets (Bld) [#/Vol] 190 10*3/uL Normal 140-440 [facility] Comment on above: Performed By: #### C MP3M, HEMDF #### [facility] [address] [place] [address] RBC (Bld) [#/Vol] 2.88 10*6/uL Low 3.80-5.20 [facility] Comment on above: Performed By: #### C MP3M, HEMDF #### [facility] [address] [place] [address] WBC (Bld) [#/Vol] 6.3 10*3/uL Normal 3.6-10.7 [facility] Comment on above: Performed By: #### C MP3M, HEMDF #### [facility] [address] [place] [address] Lactic Acidon 10-17-2020 Lactate [Moles/Vol] 0.9 mmol/L Normal 0.7-2.0 [facility] Comment on above: Performed By: #### C MP3M, HEMDF #### [facility] [address] [place] [address] Comp Panel with Mg Reflexon 10-16-2020 ALP [Catalytic activity/Vol] 56 U/L Normal 38-126 [facility] Comment on above: Performed By: #### H JADA CMP3M #### [facility] [address] [place] [address] ALT [Catalytic activity/Vol] 14 U/L Normal 0-34 [facility] Comment on above: Result Comment: The ALT test is performed by an updated assay method. Please note that the reference intervals have been changed and are now sex specific. Performed By: #### Gisella ELIAS CMP3M #### [facility] [address] [place] [address] AST [Catalytic activity/Vol] 33 U/L Normal 15-46 [facility] Comment on above: Performed By: #### Gisella ELIAS CMP3M #### [facility] [address] [place] [address] Calcium [Mass/Vol] 8.2 mg/dL Low 8.4-10.4 [facility] Comment on above: Performed By: #### Gisella ELIAS CMP3M #### [facility] [address] [place] [address] Glucose [Mass/Vol] 95 mg/dL Normal 70-100 [facility] Comment on above: Performed By: #### Gisella ELIAS CMP3M #### [facility] [address] [place] [address] Protein [Mass/Vol] 5.6 g/dL Low 6.3-8.2 [facility] Comment on above: Performed By: #### Gisella ELIAS CMP3M #### [facility] [address] [place] [address] Urea nitrogen [Mass/Vol] 23 mg/dL High 9-20 [facility] Comment on above: Performed By: #### Gisella ELIAS CMP3M #### [facility] [address] [place] [address] Anion gap [Moles/Vol] 8 mmol/L Normal 3-13 [facility] Comment on above: Performed By: #### H JADA CMP3M #### [facility] [address] [place] [address] Bilirubin [Mass/Vol] 0.3 mg/dL Normal 0.2-1.3 [facility] Comment on above: Performed By: #### H JADA CMP3M #### [facility] [address] [place] [address] CO2 [Moles/Vol] 18 mmol/L Low 22-30 [facility] Comment on above: Performed By: #### H JADA CMP3M #### [facility] [address] [place] [address] Creatinine [Mass/Vol] 0.87 mg/dL Normal 0.52-1.25 [facility] Comment on above: Performed By: #### H JADA CMP3M #### [facility] [address] [place] [address] GFR/1.73 sq M.predicted among blacks MDRD (S/P/Bld) [Vol rate/Area] 70.6 mL/min/{1.73_m2} Normal >60 [facility] Comment on above: Performed By: #### Gisella ELIAS CMP3M #### [facility] [address] [place] [address] GFR/1.73 sq M.predicted among non-blacks MDRD (S/P/Bld) [Vol rate/Area] 60.9 mL/min/{1.73_m2} Normal >60 [facility] Comment on above: Result Comment: KDIG [...] Performed By: #### Gisella ELIAS CMP3M #### [facility] [address] [place] [address] Albumin [Mass/Vol] 2.7 g/dL Low 3.5-5.0 [facility] Comment on above: Performed By: #### Gisella ELIAS CMP3M #### [facility] [address] [place] [address] Chloride [Moles/Vol] 116 mmol/L High 98-107 [facility] Comment on above: Performed By: #### Gisella ELIAS CMP3M #### [facility] [address] [place] [address] Potassium [Moles/Vol] 3.9 mmol/L Normal 3.5-5.1 [facility] Comment on above: Performed By: #### Gisella ELIAS CMP3M #### [facility] [address] [place] [address] Sodium [Moles/Vol] 143 mmol/L Normal 135-145 [facility] Comment on above: Performed By: #### Gisella ELIAS CMP3M #### [facility] [address] [place] [address] Hemogram w/ Autodiffon 10-16 Abs Baso Cnt 0.0 10*3/uL Normal 0.0-0.2 [facility] Comment on above: Performed By: #### Gisella ELIAS CMP3M #### [facility] [address] [place] [address] Abs Neutrophile Cnt 6.7 10*3/uL Normal 1.8-7.0 [facility] Comment on above: Performed By: #### Gisella ELIAS CMP3M #### [facility] [address] [place] [address] Basophils/100 WBC (Bld) 0.3 % Normal 0.0-2.0 [facility] Comment on above: Performed By: #### H EMDF, CMP3M #### [employer] [facility] [address] [place] [address] Eosinophils (Bld) [#/Vol] 0.0 10*3/uL Normal 0.0-0.5 [facility] Comment on above: Performed By: #### H EMDF, CMP3M #### [facility] [address] [place] [address] Eosinophils/100 WBC (Bld) 0.3 % Low 1.0-6.0 [facility] Comment on above: Performed By: #### H EMDF, CMP3M #### [facility] [employer] [facility] [address] [place] [address] Erythrocyte distribution width (RBC) [Ratio] 13.7 % Normal 11.5-14.5 [facility] Comment on above: Performed By: #### H EMDF, CMP3M #### [facility] [address] [place] [address] Granulocytes/100 WBC (Bld) 77.0 % Normal 40.0-80.0 [facility] Comment on above: Performed By: #### H EMDF, CMP3M #### [facility] [employer] [facility] [address] [place] [address] Hematocrit (Bld) [Volume fraction] 30.7 % Low 35.0-47.0 [facility] Comment on above: Performed By: #### H EMDF, CMP3M #### [facility] [employer] [facility] [address] [place] [address] Hemoglobin (Bld) [Mass/Vol] 10.3 g/dL Low 11.7-16.0 [facility] Comment on above: Performed By: #### H EMDF, CMP3M #### [facility] [employer] [facility] [address] [place] [address] Lymphocytes (Bld) [#/Vol] 1.3 10*3/uL Normal 1.0-4.3 [facility] Comment on above: Performed By: #### H EMDF, CMP3M #### [facility] [employer] [facility] [address] [place] [address] Lymphocytes/100 WBC (Bld) 14.5 % Low 20.0-40.0 [facility] Comment on above: Performed By: #### H EMDF, CMP3M #### [facility] [address] [place] [address] MCH (RBC) [Entitic mass] 33.7 pg Normal 26.0-34.0 [facility] Comment on above: Performed By: #### H EMDF, CMP3M #### [facility] [address] [place] [address] MCHC 33.6 % Normal 32.0-36.0 [facility] Comment on above: Performed By: #### H EMDF, CMP3M #### [facility] [address] [place] [address] MCV (RBC) [Entitic vol] 100.3 fL High 79.0-98.0 [facility] Comment on above: Performed By: #### H EMDF, CMP3M #### [facility] [address] [place] [address] Monocytes (Bld) [#/Vol] 0.7 10*3/uL Normal 0.0-0.8 [facility] Comment on above: Performed By: #### H EMDF, CMP3M #### [facility] [address] [place] [address] Monocytes/100 WBC (Bld) 7.9 % Normal 2.0-10.0 [facility] Comment on above: Performed By: #### H EMDF, CMP3M #### [facility] [address] [place] [address] Platelet mean volume (Bld) [Entitic vol] 7.6 fL Normal 7.4-10.4 [facility] Comment on above: Performed By: #### H EMDF, CMP3M #### [facility] [address] [place] [address] Platelets (Bld) [#/Vol] 190 10*3/uL Normal 140-440 [facility] Comment on above: Performed By: #### H EMDF, CMP3M #### [facility] [address] [place] [address] RBC (Bld) [#/Vol] 3.06 10*6/uL Low 3.80-5.20 [facility] Comment on above: Performed By: #### H JADA CMP3M #### [facility] [address] [place] [address] WBC (Bld) [#/Vol] 8.7 10*3/uL Normal 3.6-10.7 [facility] Comment on above: Performed By: #### H JADA CMP3M #### [facility] [address] [place] [address] Procalcitoninon 10-16-2020 Procalcitonin 6.93 ng/mL High 0.00-0.09 [facility] Comment on above: Performed By: #### M G3 CMP3M #### [facility] [address] [place] [address] Interpretation See Below Normal [facility] Comment on above: Result Comment: PCT <0.50 = Low risk of severe sepsis and/or septic shock. PCT >2.00 = High risk of severe sepsis and/or septic shock. Performed By: #### M G3 CMP3M #### [facility] [address] [place] [address] Comp Panel with Mg Reflexon 10-15-2020 Calcium [Mass/Vol] 8.3 mg/dL Low 8.4-10.4 [facility] Comment on above: Performed By: #### C MP3M, HEMDF #### [facility] [address] [place] [address] ALP [Catalytic activity/Vol] 84 U/L Normal 38-126 [facility] Comment on above: Performed By: #### C MP3M, HEMDF #### [facility] [address] [place] [address] ALT [Catalytic activity/Vol] 15 U/L Normal 0-34 [facility] Comment on above: Result Comment: The ALT test is performed by an updated assay method. Please note that the reference intervals have been changed and are now sex specific. Performed By: #### C MP3M, HEMDF #### [facility] [address] [place] [address] Anion gap [Moles/Vol] 9 mmol/L Normal 3-13 [facility] Comment on above: Performed By: #### C MP3M, HEMDF #### [facility] [address] [place] [address] AST [Catalytic activity/Vol] 37 U/L Normal 15-46 [facility] Comment on above: Performed By: #### C MP3M, HEMDF #### [facility] [address] [place] [address] Bilirubin [Mass/Vol] 0.5 mg/dL Normal 0.2-1.3 [facility] Comment on above: Performed By: #### C MP3M, HEMDF #### [facility] [address] [place] [address] CO2 [Moles/Vol] 18 mmol/L Low 22-30 [facility] Comment on above: Performed By: #### C MP3M, HEMDF #### [facility] [address] [place] [address] Creatinine [Mass/Vol] 1.59 mg/dL High 0.52-1.25 [facility] Comment on above: Performed By: #### C MP3M, HEMDF #### [facility] [address] [place] [address] GFR/1.73 sq M.predicted among blacks MDRD (S/P/Bld) [Vol rate/Area] 34.1 mL/min/{1.73_m2} Abnormal >60 [facility] Comment on above: Performed By: #### C MP3M, HEMDF #### [facility] [address] [place] [address] GFR/1.73 sq M.predicted among non-blacks MDRD (S/P/Bld) [Vol rate/Area] 29.4 mL/min/{1.73_m2} Abnormal >60 [facility] Comment on above: Result Comment: KDIG [...] Performed By: #### Alexis MP3M, HEMDF #### [facility] [address] [place] [address] Glucose [Mass/Vol] 93 mg/dL Normal 70-100 [facility] Comment on above: Performed By: #### C MP3M, HEMDF #### [facility] [address] [place] [address] Protein [Mass/Vol] 5.6 g/dL Low 6.3-8.2 [facility] Comment on above: Performed By: #### Alexis MP3M, HEMDF #### [facility] [address] [place] [address] Urea nitrogen [Mass/Vol] 40 mg/dL High 9-20 [facility] Comment on above: Performed By: #### C MP3M, HEMDF #### [facility] [address] [place] [address] Potassium [Moles/Vol] 4.1 mmol/L Normal 3.5-5.1 [facility] Comment on above: Performed By: #### C MP3M, HEMDF #### [facility] [address] [place] [address] Albumin [Mass/Vol] 2.7 g/dL Low 3.5-5.0 [facility] Comment on above: Performed By: #### C MP3M, HEMDF #### [facility] [address] [place] [address] Chloride [Moles/Vol] 108 mmol/L High 98-107 [facility] Comment on above: Performed By: #### C MP3M, HEMDF #### [facility] [address] [place] [address] Sodium [Moles/Vol] 135 mmol/L Normal 135-145 [facility] Comment on above: Performed By: #### C MP3M, HEMDF #### [facility] [address] [place] [address] Hemogram w/ Autodiffon 10-15 Abs Baso Cnt 0.0 10*3/uL Normal 0.0-0.2 [facility] Comment on above: Performed By: #### C MP3M, HEMDF #### [facility] [address] [place] [address] Abs Neutrophile Cnt 7.5 10*3/uL High 1.8-7.0 [facility] Comment on above: Performed By: #### C MP3M, HEMDF #### [facility] [address] [place] [address] Basophils/100 WBC (Bld) 0.4 % Normal 0.0-2.0 [facility] Comment on above: Performed By: #### C MP3M, HEMDF #### [facility] [address] [place] [address] Eosinophils (Bld) [#/Vol] 0.0 10*3/uL Normal 0.0-0.5 [facility] Comment on above: Performed By: #### C MP3M, HEMDF #### [facility] [address] [place] [address] Eosinophils/100 WBC (Bld) 0.2 % Low 1.0-6.0 [facility] Comment on above: Performed By: #### C MP3M, HEMDF #### [facility] [address] [place] [address] Erythrocyte distribution width (RBC) [Ratio] 13.9 % Normal 11.5-14.5 [facility] Comment on above: Performed By: #### C MP3M, HEMDF #### [facility] [address] [place] [address] Granulocytes/100 WBC (Bld) 76.2 % Normal 40.0-80.0 [facility] Comment on above: Performed By: #### C MP3M, HEMDF #### [facility] [address] [place] [address] Hematocrit (Bld) [Volume fraction] 32.6 % Low 35.0-47.0 [facility] Comment on above: Performed By: #### C MP3M, HEMDF #### [facility] [address] [place] [address] Hemoglobin (Bld) [Mass/Vol] 11.2 g/dL Low 11.7-16.0 [facility] Comment on above: Performed By: #### C MP3M, HEMDF #### [facility] [address] [place] [address] Lymphocytes (Bld) [#/Vol] 1.4 10*3/uL Normal 1.0-4.3 [facility] Comment on above: Performed By: #### C MP3M, HEMDF #### [facility] [address] [place] [address] Lymphocytes/100 WBC (Bld) 14.7 % Low 20.0-40.0 [facility] Comment on above: Performed By: #### C MP3M, HEMDF #### [facility] [address] [place] [address] MCH (RBC) [Entitic mass] 34.6 pg High 26.0-34.0 [facility] Comment on above: Performed By: #### C MP3M, HEMDF #### [facility] [address] [place] [address] MCHC 34.5 % Normal 32.0-36.0 [facility] Comment on above: Performed By: #### C MP3M, HEMDF #### [facility] [address] [place] [address] MCV (RBC) [Entitic vol] 100.5 fL High 79.0-98.0 [facility] Comment on above: Performed By: #### C MP3M, HEMDF #### [facility] [address] [place] [address] Monocytes (Bld) [#/Vol] 0.8 10*3/uL Normal 0.0-0.8 [facility] Comment on above: Performed By: #### C MP3M, HEMDF #### [facility] [address] [place] [address] Monocytes/100 WBC (Bld) 8.5 % Normal 2.0-10.0 [facility] Comment on above: Performed By: #### C MP3M, HEMDF #### [facility] [address] [place] [address] Platelet mean volume (Bld) [Entitic vol] 7.7 fL Normal 7.4-10.4 [facility] Comment on above: Performed By: #### C MP3M, HEMDF #### [facility] [address] [place] [address] Platelets (Bld) [#/Vol] 211 10*3/uL Normal 140-440 [facility] Comment on above: Performed By: #### C MP3M, HEMDF #### [facility] [address] [place] [address] RBC (Bld) [#/Vol] 3.25 10*6/uL Low 3.80-5.20 [facility] Comment on above: Performed By: #### C MP3M, HEMDF #### [facility] [address] [place] [address] WBC (Bld) [#/Vol] 9.8 10*3/uL Normal 3.6-10.7 [facility] Comment on above: Performed By: #### C MP3M, HEMDF #### [facility] [address] [place] [address] Add on test from HISon 10-14 Add on test from HIS Accepted Normal [facility] Comment on above: Result Comment: Spec imen available & acceptable for analysis. Performed By: #### M G3, CMP3M #### [facility] [address] [place] [address] Basic Metabolic Panelon -0 Anion gap [Moles/Vol] 6 mmol/L Normal 3-13 [facility] Comment on above: Performed By: #### B MP3M #### [facility] [address] [place] [address] Calcium [Mass/Vol] 8.2 mg/dL Low 8.4-10.4 [facility] Comment on above: Performed By: #### B MP3M #### [facility] [address] [place] [address] CO2 [Moles/Vol] 22 mmol/L Normal 22-30 [facility] Comment on above: Performed By: #### B MP3M #### [facility] [address] [place] [address] Glucose [Mass/Vol] 109 mg/dL High 70-100 [facility] Comment on above: Performed By: #### B MP3M #### [facility] [address] [place] [address] Urea nitrogen [Mass/Vol] 33 mg/dL High 9-20 [facility] Comment on above: Performed By: #### B MP3M #### [facility] [address] [place] [address] Creatinine [Mass/Vol] 1.30 mg/dL High 0.52-1.25 [facility] Comment on above: Performed By: #### B MP3M #### [facility] [address] [place] [address] GFR/1.73 sq M.predicted among blacks MDRD (S/P/Bld) [Vol rate/Area] 43.5 mL/min/{1.73_m2} Abnormal >60 [facility] Comment on above: Performed By: #### B MP3M #### [facility] [address] [place] [address] GFR/1.73 sq M.predicted among non-blacks MDRD (S/P/Bld) [Vol rate/Area] 37.5 mL/min/{1.73_m2} Abnormal >60 [facility] Comment on above: Result Comment: KDIG [...] secretion. Performed By: #### B MP3M #### [facility] [address] [place] [address] Chloride [Moles/Vol] 107 mmol/L Normal 98-107 [facility] Comment on above: Performed By: #### B MP3M #### [facility] [address] [place] [address] Potassium [Moles/Vol] 4.3 mmol/L Normal 3.5-5.1 [facility] Comment on above: Performed By: #### B MP3M #### [facility] [address] [place] [address] Sodium [Moles/Vol] 135 mmol/L Normal 135-145 [facility] Comment on above: Performed By: #### B MP3M #### [facility] [address] [place] [address] Calcium [Mass/Vol] 9.1 mg/dL Normal 8.4-10.4 [facility] Comment on above: Performed By: #### B MP3M #### [facility] [address] [place] [address] Glucose [Mass/Vol] 96 mg/dL Normal 70-100 [facility] Comment on above: Performed By: #### B MP3M #### [facility] [address] [place] [address] Anion gap [Moles/Vol] 10 mmol/L Normal 3-13 [facility] Comment on above: Performed By: #### B MP3M #### [facility] [address] [place] [address] CO2 [Moles/Vol] 21 mmol/L Low 22-30 [facility] Comment on above: Performed By: #### B MP3M #### [facility] [address] [place] [address] Creatinine [Mass/Vol] 1.38 mg/dL High 0.52-1.25 [facility] Comment on above: Performed By: #### B MP3M #### [facility] [employer] [facility] [address] [place] [address] GFR/1.73 sq M.predicted among blacks MDRD (S/P/Bld) [Vol rate/Area] 40.4 mL/min/{1.73_m2} Abnormal >60 [facility] Comment on above: Performed By: #### B MP3M #### [facility] [address] [place] [address] GFR/1.73 sq M.predicted among non-blacks MDRD (S/P/Bld) [Vol rate/Area] 34.9 mL/min/{1.73_m2} Abnormal >60 [facility] Comment on above: Result Comment: KDIG [...] secretion. Performed By: #### B MP3M #### [facility] [employer] [facility] [address] [place] [address] Urea nitrogen [Mass/Vol] 33 mg/dL High 9-20 [facility] Comment on above: Performed By: #### B MP3M #### [facility] [address] [place] [address] Potassium [Moles/Vol] 4.2 mmol/L Normal 3.5-5.1 [facility] Comment on above: Performed By: #### B MP3M #### [facility] [address] [place] [address] Sodium [Moles/Vol] 132 mmol/L Low 135-145 [facility] Comment on above: Performed By: #### B MP3M #### [facility] [address] [place] [address] Chloride [Moles/Vol] 101 mmol/L Normal 98-107 [facility] Comment on above: Performed By: #### B MP3M #### [facility] [address] [place] [address] C-Reactive Proteinon 021 CRP [Mass/Vol] mg/L Normal 0.0-6.0 [facility] Comment on above: Result Comment: . Performed By: #### B MP3M #### [facility] [address] [place] [address] CT Abdomen/Pelvis w/ Contras ton 10-14-2020 CT Abdomen/Pelvis w/ Contrast Patient Name: KATHERINE JUDGE Computed Tomography ACCESSION EXAM DATE/TIME PROCEDURE ORDERING PROVIDER [id number] 10/13/2020 23:[address] Abdomen/Pelvis w/ IV MARK DICKERSON, Contrast (IV Onl JULITA CPT code 15323 Q9967 Reason For Exam (CT Abdomen/Pelvis w/ [...] Transcribed Date and Time: 10/13/2020 11:53 Normal [facility] GASTROINTESTINAL PCR PANELon 10-14-2020 GASTROINTESTINAL PCR PANEL GASTROINTESTINAL PCR PANEL --> Status: F NEGATIVE: No targets were detected by the [employer] Gastrointestinal PCR Panel. _ The [employer] Gastrointestinal PCR Panel can detect the following targets: Campylobacter, Plesiomonas shigelloides, Salmonella, Vibrio species, Vibrio cholerae, Yersinia enterocolitica, Shiga toxin-producing E coli (STEC) including E coli O157, Enterotoxigenic E coli (ETEC), Shigella/Enteroinvasive E coli (EIEC), Cryptosporidium, Cyclospora cayetanensis, Entamoeba histolytica, Giardia lamblia, Adenovirus F 40/41, Astrovirus, Norovirus GI/GII, Rotavirus A, Sapovirus Gastrointestinal PCR Panel. _ The [employer] Gastrointestinal PCR Panel can detect the following targets: Campylobacter, Plesiomonas shigelloides, Salmonella, Vibrio species, Vibrio cholerae, Yersinia enterocolitica, Shiga toxin-producing E coli (STEC) including E coli O157, Enterotoxigenic E coli (ETEC), Shigella/Enteroinvasive E coli (EIEC), Cryptosporidium, Cyclospora cayetanensis, Entamoeba histolytica, Giardia lamblia, Adenovirus F 40/41, Astrovirus, Norovirus GI/GII, Rotavirus A, Sapovirus Normal [facility] Comment on above: Performed By: #### B FGI #### [facility] [address] [place] [address] Glucoseon 10-14-2020 Glucose [Mass/Vol] 107 mg/dL High 70-100 [facility] Comment on above: Performed By: #### B MP3M #### [facility] [address] [place] [address] Hepatic Functionon 1 ALP [Catalytic activity/Vol] 216 U/L High 38-126 [facility] Comment on above: Performed By: #### B MP3M #### [facility] [address] [place] [address] ALT [Catalytic activity/Vol] 17 U/L Normal 0-34 [facility] Comment on above: Result Comment: The ALT test is performed by an updated assay method. Please note that the reference intervals have been changed and are now sex specific. Performed By: #### B MP3M #### [facility] [address] [place] [address] AST [Catalytic activity/Vol] 50 U/L High 15-46 [facility] Comment on above: Performed By: #### B MP3M #### [facility] [address] [place] [address] Bilirubin [Mass/Vol] 0.9 mg/dL Normal 0.2-1.3 [facility] Comment on above: Performed By: #### B MP3M #### [facility] [address] [place] [address] Bilirubin.indirect [Mass/Vol] 0.0 mg/dL Normal 0.0-0.3 [facility] Comment on above: Performed By: #### B MP3M #### [facility] [address] [place] [address] Protein [Mass/Vol] 5.9 g/dL Low 6.3-8.2 [facility] Comment on above: Performed By: #### B MP3M #### [facility] [address] [place] [address] Albumin [Mass/Vol] 3.0 g/dL Low 3.5-5.0 [facility] Comment on above: Performed By: #### B MP3M #### [facility] [address] [place] [address] Lactic Acidon 10-14-2020 Lactate [Moles/Vol] 1.5 mmol/L Normal 0.7-2.0 [facility] Comment on above: Performed By: #### M G3, CMP3M #### [facility] [address] [place] [address] Magnesiumon 10-14-2020 Magnesium [Mass/Vol] 1.6 mg/dL Normal 1.6-2.3 [facility] Comment on above: Performed By: #### B MP3M #### [facility] [address] [place] [address] Phosphoruson 10-14-2020 Phosphate [Mass/Vol] 4.6 mg/dL High 2.5-4.5 [facility] Comment on above: Performed By: #### B MP3M #### [facility] [address] [place] [address] Procalcitoninon 10-14-2020 Procalcitonin 7.54 ng/mL High 0.00-0.09 [facility] Comment on above: Performed By: #### B MP3M #### [facility] [address] [place] [address] Interpretation See Below Normal [facility] Comment on above: Result Comment: PCT <0.50 = Low risk of severe sepsis and/or septic shock. PCT >2.00 = High risk of severe sepsis and/or septic shock. Performed By: #### B MP3M #### [facility] [address] [place] [address] SARS-CoV-2 (LAB DEPT)on SARS-CoV-2 (COVID-19) RNA ALTHEA+probe Ql (Unsp spec) see below Normal [facility] Comment on above: Result Comment: Not Detected Expected Result: Not Detected _ Isothermal nucleic acid amplification performed on the GlySure System by the [facility] Negative results do not preclude SARS-CoV-2 infection and should not be used as the sole basis for treatment or other patient management decisions. This assay was developed by [employer] and distributed under an Emergency Use Authorization (EUA) granted by the [facility] for the qualitative detection of SARS-CoV-2 nucleic acid. Provider and patient fact sheets can be found at https://www.fda.gov/media/318532/download and https://www.fda.gov/media/438553/download. Performed By: #### B MP3M #### [facility] [address] [place] [address] TS GELon 10-14-2020 TS GEL ABO Group: O Rh, Gel: POS Antibody Screen Gel: NEG Normal [facility] Comment on above: Performed By: #### T SGL #### [facility] Troponin Ion 10-14-2020 Troponin I.cardiac [Mass/Vol] ng/mL Normal 0.000-0.03 4 [facility] Comment on above: Result Comment: . Performed By: #### B MP3M #### [facility] [address] [place] [address] ED Provider Noteon ED Provider Note JULIETTE CLYDETRUE ED eMERGENCY dEPARTMENT eNCOUnter Pt Name: Katherine [...] otherwise acutely negative except as stated in LITTLE TRAVERSE. PAST MEDICAL HISTORY Past Medical History: Diagnosis [...] Gatherings with Friends and Family: ? Attends [employer] Services: ? Active Member of Clubs or Organizations: ? Attends Club or Organization Meetings: ? Marital Status: Intimate Partner Violence: ? Fear of Current or Ex-Partner: ? Emotionally Abused: ? Physically Abused: ? Sexually Abused: SCREENINGS PHYS (more content not included)... [facility] ED Provider Note Emergency Department Encounter [facility] ED Patient: Katherine Judge : 1935 [...] [employer] Hugh Cesar MD 10/13/20 2259 Normal [facility] Fecal Occult,Stool Single Sp econ 10-13-2020 Fecal Occult,Stool Single Spec Positive Normal Negative [facility] Comment on above: Performed By: #### Fernando Hammond CMP3M #### [facility] [address] [place] [address] Hemogram w/ Autodiffon 10-13 Abs Baso Cnt 0.0 10*3/uL Normal 0.0-0.2 [facility] Comment on above: Performed By: #### Fernando Hammond CMP3M #### [facility] [address] [place] [address] Abs Neutrophile Cnt 7.2 10*3/uL High 1.8-7.0 [facility] Comment on above: Performed By: #### Fernando Hammond CMP3M #### [facility] [address] [place] [address] Basophils/100 WBC (Bld) 0.1 % Normal 0.0-2.0 [facility] Comment on above: Performed By: #### Fernando Hammond CMP3M #### [facility] [address] [place] [address] Eosinophils (Bld) [#/Vol] 0.0 10*3/uL Normal 0.0-0.5 [facility] Comment on above: Performed By: #### Fernando Hammond CMP3M #### [facility] [address] [place] [address] Eosinophils/100 WBC (Bld) 0.0 % Low 1.0-6.0 [facility] Comment on above: Performed By: #### Fernando Hammond CMP3M #### [facility] [address] [place] [address] Erythrocyte distribution width (RBC) [Ratio] 13.8 % Normal 11.5-14.5 [facility] Comment on above: Performed By: #### Fernando Hammond CMP3M #### [facility] [address] [place] [address] Granulocytes/100 WBC (Bld) 87.0 % High 40.0-80.0 [facility] Comment on above: Performed By: #### Fernando Hammond CMP3M #### [facility] [address] [place] [address] Hematocrit (Bld) [Volume fraction] 47.8 % High 35.0-47.0 [facility] Comment on above: Performed By: #### M G3, CMP3M #### [facility] [address] [place] [address] Hemoglobin (Bld) [Mass/Vol] 16.0 g/dL Normal 11.7-16.0 [facility] Comment on above: Performed By: #### M G3, CMP3M #### [facility] [address] [place] [address] Lymphocytes (Bld) [#/Vol] 0.7 10*3/uL Low 1.0-4.3 [facility] Comment on above: Performed By: #### Fernando G3, CMP3M #### [facility] [address] [place] [address] Lymphocytes/100 WBC (Bld) 8.9 % Low 20.0-40.0 [facility] Comment on above: Performed By: #### Fernando G3, CMP3M #### [facility] [address] [place] [address] MCH (RBC) [Entitic mass] 33.6 pg Normal 26.0-34.0 [facility] Comment on above: Performed By: #### Fernando G3, CMP3M #### [facility] [address] [place] [address] MCHC 33.4 % Normal 32.0-36.0 [facility] Comment on above: Performed By: #### M G3, CMP3M #### [facility] [address] [place] [address] MCV (RBC) [Entitic vol] 100.9 fL High 79.0-98.0 [facility] Comment on above: Performed By: #### M G3, CMP3M #### [facility] [address] [place] [address] Monocytes (Bld) [#/Vol] 0.3 10*3/uL Normal 0.0-0.8 [facility] Comment on above: Performed By: #### Fernando G3, CMP3M #### [facility] [address] [place] [address] Monocytes/100 WBC (Bld) 4.0 % Normal 2.0-10.0 [facility] Comment on above: Performed By: #### M G3, CMP3M #### [facility] [address] [place] [address] Platelet mean volume (Bld) [Entitic vol] 7.6 fL Normal 7.4-10.4 [facility] Comment on above: Performed By: #### M G3, CMP3M #### [facility] [address] [place] [address] Platelets (Bld) [#/Vol] 302 10*3/uL Normal 140-440 [facility] Comment on above: Performed By: #### M G3, CMP3M #### [facility] [address] [place] [address] RBC (Bld) [#/Vol] 4.74 10*6/uL Normal 3.80-5.20 [facility] Comment on above: Performed By: #### M G3, CMP3M #### [facility] [address] [place] [address] WBC (Bld) [#/Vol] 8.3 10*3/uL Normal 3.6-10.7 [facility] Comment on above: Performed By: #### M G3, CMP3M #### [facility] [address] [place] [address] Lactic Acidon 10-13-2020 Lactate [Moles/Vol] 3.9 mmol/L Critically high 0.7-2.0 [facility] Comment on above: Performed By: #### B MP3M #### [facility] [address] [place] [address] Blood Pressure Cuff Sizeon 0 09-10-2020 Blood Pressure Cuff Size Adult [facility] Work Phone: Tobacco Screening.on Tobacco use status CPHS b) No [facility] Work Phone: Tobacco Screening.on Fall risk assessment a) No falls within the last year [facility] Work Phone: Tobacco use status HS b) No [facility] Work Phone: Lipid Panelon 03-12-2020 Cholesterol [Mass/Vol] 148 mg/dL 0 - 199 [facility] Work Phone: Comment on above: . AGE DESIRABLE BORD EML HIGH HIGH 0-19 Y 0 - 169 [...] dosing. Cholesterol in HDL [Mass/Vol] 40.7 mg/dL [facility] Work Phone: Comment on above: . AGE VERY LOW LOW N ORMAL HIGH 0-19 Y < 35 < 40 40-45 ---- 20- 24 Y ---- < 40 >45 ---- >24 Y ---- < 40 40-60 >60. Cholesterol in LDL [Mass/Vol] 76 mg/dL 0 - 99 [facility] Work Phone: Comment on above: . NEAR BORD AGE TORI RABLE OPTIMAL HIGH HIGH VERY HIGH 0-19 Y 0 - 109 --- 110-129 >/= 130 ---- 20-24 Y 0 - 119 --- 120-159 >/= 160 ---- >24 Y 0 - 99 100-129 130-159 160-189 >/=190. Cholesterol.total/Cho lesterol in HDL [Mass ratio] 3.6 {ratio} [facility] Work Phone: Comment on above: REF VALUESDESIRABLE < 3.4HIGH RISK > 5.0 Triglyceride [Mass/Vol] 159 mg/dL above high threshold 0 - 149 [facility] Work Phone: Comment on above: . [...] Lipid Panel 32 mg/dL 0 - 40 [facility] Work Phone: Metabolic Panelon 03-12-2020 ALP [Catalytic activity/Vol] 54 U/L 33 - 136 [facility] Work Phone: Anion gap [Moles/Vol] 16 mmol/L 10 - 20 [facility] Work Phone: Bilirubin [Mass/Vol] 0.6 mg/dL 0.0 - 1.2 [facility] Work Phone: Calcium [Mass/Vol] 9.9 mg/dL 8.6 - 10.6 [facility] Work Phone: Chloride [Moles/Vol] 103 mmol/L 98 - 107 [facility] Work Phone: CO2 [Moles/Vol] 27 mmol/L 21 - 32 [facility] Work Phone: Creatinine [Mass/Vol] 1.18 mg/dL above high threshold See Below [facility] Work Phone: Comment on above: Reference Range: 0.5 0 - 1.05 Glucose [Mass/Vol] 76 mg/dL 74 - 99 [facility] Work Phone: Potassium [Moles/Vol] 4.2 mmol/L 3.5 - 5.3 [facility] Work Phone: Protein [Mass/Vol] 7.1 g/dL 6.4 - 8.2 [facility] Work Phone: Sodium [Moles/Vol] 142 mmol/L 136 - 145 [facility] Work Phone: Urea nitrogen [Mass/Vol] 28 mg/dL above high threshold 6 - 23 [facility] Work Phone: Otheron 03-12-2020 Albumin BCP dye [Mass/Vol] 4.0 g/dL 3.4 - 5.0 [facility] Work Phone: ALT With P-5'-P [Catalytic activity/Vol] 17 U/L 7 - 45 [facility] Work Phone: Comment on above: Patients treated wit h Sulfasalazine may generate falsely decreased results for ALT. AST With P-5'-P [Catalytic activity/Vol] 23 U/L 9 - 39 [facility] Work Phone: 44 {mL/min/1.73m2} Abnormal >60 [facility] Work Phone: 53 {mL/min/1.73m2} Abnormal >60 [facility] Work Phone: Comment on above: CALCULATIONS OF [...] signed by: DAYAMI LOZANO 11/10/19 15:55 Normal [facility] Work Phone: Comment on above: ORDER REVISED TO A C T ABDOMEN AND PELVIS W IV CONTRAST BY RADIOLOGIST; Original Order Number: [id number] Complete Blood Count + Alvino fatima 11-10-2019 Basophils (Bld) [#/Vol] 0.05 {x10E9/L} See Below [facility] Work Phone: Comment on above: Reference Range: 0.0 0 - 0.10 Ordering Provider: Rachid JORDAN [address]77[address] Basophils/100 WBC (Bld) 0.6 % 0.0 - 2.0 [facility] Work Phone: Comment on above: Ordering Provider: Rachid JORDAN 86892 Eosinophils (Bld) [#/Vol] 0.12 {x10E9/L} See Below [facility] Work Phone: Comment on above: Reference Range: 0.0 0 - 0.40 Ordering Provider: Rachid JORDAN [address]011 Eosinophils/100 WBC (Bld) 1.5 % 0.0 - 6.0 [facility] Work Phone: Comment on above: Ordering Provider: Rachid JORDAN [address] Erythrocyte distribution width (RBC) [Ratio] 13.2 % See Below [facility] Work Phone: Comment on above: Reference Range: 11. 5 - 14.5 Ordering Provider: Rachid JORDAN [address]2263 Hematocrit (Bld) [Volume fraction] 40.7 % See Below [facility] Work Phone: Comment on above: Reference Range: 36. 0 - 46.0 Ordering Provider: Rachid JORDAN [address]202 Hemoglobin (Bld) [Mass/Vol] 12.6 g/dL See Below [facility] Work Phone: Comment on above: Reference Range: 12. 0 - 16.0 Ordering Provider: Rachid JORDAN 29834 Lymphocytes (Bld) [#/Vol] 2.25 {x10E9/L} See Below [facility] Work Phone: Comment on above: Reference Range: 0.8 0 - 3.00 Ordering Provider: Rachid JORDAN [address]3970 Lymphocytes/100 WBC (Bld) 27.3 % See Below [facility] Work Phone: Comment on above: Reference Range: 13. 0 - 44.0 Ordering Provider: Rachid JORDAN [address]145 MCHC (RBC) [Mass/Vol] 31.0 g/dL below low threshold See Below [facility] Work Phone: Comment on above: Reference Range: 32. 0 - 36.0 Ordering Provider: Rachid JORDAN 47224 MCV (RBC) [Entitic vol] 105 fL above high threshold 80 - 100 [facility] Work Phone: Comment on above: Ordering Provider: Rachid JORDAN 11251 Monocytes (Bld) [#/Vol] 0.57 {x10E9/L} See Below [facility] Work Phone: Comment on above: Reference Range: 0.0 5 - 0.80 Ordering Provider: Rachid JORDAN 94035 Monocytes/100 WBC (Bld) 6.9 % 2.0 - 10.0 [facility] Work Phone: Comment on above: Ordering Provider: Rachid JORDAN 23560 Neutrophils (Bld) [#/Vol] 5.20 {x10E9/L} See Below [facility] Work Phone: Comment on above: Reference Range: 1.6 0 - 5.50 Ordering Provider: Rachid JORDAN 76018 Neutrophils/100 WBC (Bld) 63.0 % See Below [facility] Work Phone: Comment on above: Reference Range: 40. 0 - 80.0 Ordering Provider: Rachid JORDAN 80411 Platelets (Bld) [#/Vol] 288 {x10E9/L} 150 - 450 [facility] Work Phone: Comment on above: Platelet count may b e higher than reported due to presence of PlateletClumps. Ordering Provider: Rachid JORDAN 50235 RBC (Bld) [#/Vol] 3.87 {x10E12/L} below low threshold See Below [facility] Work Phone: Comment on above: Reference Range: 4.0 0 - 5.20 Ordering Provider: Rachid JORDAN 82510 WBC (Bld) [#/Vol] 0.0 {/100_WBC} 0.0 - 0.0 [facility] Work Phone: Comment on above: Ordering Provider: Rachid JORDAN 18726 WBC (Bld) [#/Vol] 8.3 {x10E9/L} 4.4 - 11.3 [facility] Work Phone: Comment on above: Ordering Provider: Rachid JORDAN 75219 Complete Blood Count + Differential 0.7 % 0.0 - 0.9 [facility] Work Phone: Comment on above: Immature Granulocyte Count (IG) includes promyelocytes, myelocytes and metamyelocytes but does not include bands. Percent differential counts (%) should be interpreted in the context of the absolute cell counts (cells/L). Ordering Provider: Rachid JORDAN 97055 Lipase, Serumon 11-10-2019 Lipase [Catalytic activity/Vol] 37 U/L 9 - 82 [facility] Work Phone: Comment on above: Venipuncture immedia tely after or during the administration of Metamizole may lead to falsely low results. Testing should be performed immediately prior to Metamizole dosing. G-fxirdl-z-benzoquinone imine (metabolite of Acetaminophen) will generate erroneously low results in samples for patients that have taken toxic doses of acetaminophen. Ordering Provider: Rachid JORDAN 37784 Metabolic Panelon 11-10-2019 ALP [Catalytic activity/Vol] 75 U/L 33 - 136 [facility] Work Phone: Comment on above: Ordering Provider: Rachid JORDAN 81067 Anion gap [Moles/Vol] 16 mmol/L 10 - 20 [facility] Work Phone: Comment on above: Ordering Provider: Rachid JORDAN 80383 Bilirubin [Mass/Vol] 0.6 mg/dL 0.0 - 1.2 [facility] Work Phone: Comment on above: Ordering Provider: Rachid JORDAN 56323 Calcium [Mass/Vol] 9.9 mg/dL 8.6 - 10.3 [facility] Work Phone: Comment on above: Ordering Provider: Rachid JORDAN 96397 Chloride [Moles/Vol] 99 mmol/L 98 - 107 [facility] Work Phone: Comment on above: Ordering Provider: Rachid JORDAN 76181 CO2 [Moles/Vol] 25 mmol/L 21 - 32 [facility] Work Phone: Comment on above: Ordering Provider: Rachid JORDAN 41583 Creatinine [Mass/Vol] 0.95 mg/dL See Below [facility] Work Phone: Comment on above: Reference Range: 0.5 0 - 1.05 Ordering Provider: Rachid JORDAN 23855 Glucose [Mass/Vol] 105 mg/dL above high threshold 74 - 99 [facility] Work Phone: Comment on above: Ordering Provider: Rachid JORDAN 27298 Potassium [Moles/Vol] 4.8 mmol/L 3.5 - 5.3 [facility] Work Phone: Comment on above: MILD HEMOLYSIS DETEC MAURA. The result may be falsely elevated due tohemolysis or other interferents. Clinical correlation is recommended.Repeat testing may be considered. Ordering Provider: Rachid JORDAN 62017 Protein [Mass/Vol] 8.2 g/dL 6.4 - 8.2 [facility] Work Phone: Comment on above: Ordering Provider: Rachid JORDAN 56281 Sodium [Moles/Vol] 135 mmol/L below low threshold 136 - 145 [facility] Work Phone: Comment on above: Ordering Provider: Rachid JORDAN 41374 Urea nitrogen [Mass/Vol] 18 mg/dL 6 - 23 [facility] Work Phone: Comment on above: Ordering Provider: Rachid JORDAN 33215 Otheron 11-10-2019 Albumin BCP dye [Mass/Vol] 3.7 g/dL 3.4 - 5.0 [facility] Work Phone: Comment on above: Ordering Provider: Rachid JORDAN 87679 ALT With P-5'-P [Catalytic activity/Vol] 13 U/L 7 - 45 [facility] Work Phone: Comment on above: Patients treated wit h Sulfasalazine may generate falsely decreased results for ALT. Ordering Provider: Rachid JORDAN 06866 AST With P-5'-P [Catalytic activity/Vol] 25 U/L 9 - 39 [facility] Work Phone: Comment on above: MILD HEMOLYSIS DETEC MAURA. The result may be falsely elevated due tohemolysis or other interferents. Clinical correlation is recommended.Repeat testing may be considered. Ordering Provider: Rachid JORDAN 59784 56 {mL/min/1.73m2} Abnormal >60 [facility] Work Phone: Comment on above: Ordering Provider: Rachid JORDAN 42329 68 {mL/min/1.73m2} >60 [facility] Work Phone: Comment on above: CALCULATIONS OF ALVARO MATED GFR ARE PERFORMED USING THE MDRD STUDY EQUATION FOR THE IDMS-TRACEABLE CREATININE METHODS. CLIN CHEM 2007;53:766-72 Ordering Provider: Rachid JORDAN 69288 Urinalysison 11-10-2019 Appearance (U) CLEAR CLEAR [facility] Work Phone: Comment on above: Ordering Provider: Rachid JORDAN 54043 Color (U) STRAW See Below [facility] Work Phone: Comment on above: Reference Range: STR AW,YELLOW Ordering Provider: Rachid JORDAN 45316 Glucose Ql (U) Negative NEGATIVE [facility] Work Phone: Comment on above: Ordering Provider: Rachid JORDAN 16984 Ketones Ql (U) Negative NEGATIVE [facility] Work Phone: Comment on above: Ordering Provider: Rachid JORDAN 89628 Leukocyte esterase Test strip Ql (U) Negative NEGATIVE [facility] Work Phone: Comment on above: Ordering Provider: Rachid JORDAN 80388 pH (U) 6.0 [pH] 5.0 - 8.0 [facility] Work Phone: Comment on above: Ordering Provider: Rachid JORDAN 92293 Protein (U) [Mass/Vol] Negative NEGATIVE [facility] Work Phone: Comment on above: Ordering Provider: Rachid JORDAN [id number] RBC (U) [#/Vol] SMALL (1+) Abnormal NEGATIVE [facility] Work Phone: Comment on above: Ordering Provider: Rachid JORDAN [id number] Specific gravity (U) [Rel density] 1.028 1 See Below [facility] Work Phone: Comment on above: Reference Range: 1.0 05 - 1.035 Ordering Provider: Rachid JORDAN [id number] Urinalysis <2.0 0.0 - 1.9 [facility] Work Phone: Comment on above: Ordering Provider: Rachid JORDAN [id number] Urinalysis Negative NEGATIVE [facility] Work Phone: Comment on above: Ordering Provider: Rachid JORDAN [id number] Urinalysis, Microscopicon RBC (Bld) [#/Vol] <1 0-5 [facility] Work Phone: Comment on above: Ordering Provider: Rachid JORDAN [id number] Urinalysis, Microscopic <1 0-5 [facility] Work Phone: Comment on above: Ordering Provider: Rachid JORDAN [id number] Urinalysis, Microscopic 1 {/HPF} [facility] Work Phone: Comment on above: Ordering Provider: Rachid JORDAN [id number] CRP, High Sensitivityon 10-12 CRP High sensitivity method [Mass/Vol] mg/L Abnormal [facility] Work Phone: Comment on above: hsCRP INTERPRETATION mg/L < 1.0 LOW RELATIVE RISK OF CVD 1.0-3.0 AVERAGE RELATIVE RISK OF CVD > 3.0 HIGH RELATIVE RISK OF CVD Source:KATIE TLeigh Gaona. et al. CIRCULATION 2003;107:[id number]. Complete Blood Count + [facility] 11-09-2019 Basophils (Bld) [#/Vol] 0.06 {x10E9/L} See Below [facility] Work Phone: Comment on above: Reference Range: 0.0 0 - 0.10 Basophils/100 WBC (Bld) 0.6 % 0.0 - 2.0 [facility] Work Phone: Eosinophils (Bld) [#/Vol] 0.20 {x10E9/L} See Below [facility] Work Phone: Comment on above: Reference Range: 0.0 0 - 0.40 Eosinophils/100 WBC (Bld) 2.0 % 0.0 - 6.0 [facility] Work Phone: Erythrocyte distribution width (RBC) [Ratio] 13.2 % See Below [facility] Work Phone: Comment on above: Reference Range: 11. 5 - 14.5 Hematocrit (Bld) [Volume fraction] 38.6 % See Below [facility] Work Phone: Comment on above: Reference Range: 36. 0 - 46.0 Hemoglobin (Bld) [Mass/Vol] 12.2 g/dL See Below [facility] Work Phone: Comment on above: Reference Range: 12. 0 - 16.0 Lymphocytes (Bld) [#/Vol] 2.47 {x10E9/L} See Below [facility] Work Phone: Comment on above: Reference Range: 0.8 0 - 3.00 Lymphocytes/100 WBC (Bld) 24.4 % See Below [facility] Work Phone: Comment on above: Reference Range: 13. 0 - 44.0 MCHC (RBC) [Mass/Vol] 31.6 g/dL below low threshold See Below [facility] Work Phone: Comment on above: Reference Range: 32. 0 - 36.0 MCV (RBC) [Entitic vol] 106 fL above high threshold 80 - 100 [facility] Work Phone: Monocytes (Bld) [#/Vol] 0.84 {x10E9/L} above high threshold See Below [facility] Work Phone: Comment on above: Reference Range: 0.0 5 - 0.80 Monocytes/100 WBC (Bld) 8.3 % 2.0 - 10.0 [facility] Work Phone: Neutrophils/100 WBC (Bld) 64.2 % See Below [facility] Work Phone: Comment on above: Reference Range: 40. 0 - 80.0 Platelets (Bld) [#/Vol] 321 {x10E9/L} 150 - 450 [facility] Work Phone: RBC (Bld) [#/Vol] 3.64 {x10E12/L} below low threshold See Below [facility] Work Phone: Comment on above: Reference Range: 4.0 0 - 5.20 WBC (Bld) [#/Vol] 0.0 {/100_WBC} 0.0-0.0 [facility] Work Phone: WBC (Bld) [#/Vol] 10.1 {x10E9/L} 4.4 - 11.3 [facility] Work Phone: Complete Blood Count + Differential 6.51 {x10E9/L} above high threshold See Below [facility] Work Phone: Comment on above: Reference Range: 1.6 0 - 5.50 Complete Blood Count + Differential 0.5 % 0.0 - 0.9 [facility] Work Phone: Comment on above: Immature Granulocyte Count (IG) includes promyelocytes, myelocytes and metamyelocytes but does not include bands. Percent differential counts (%) should be interpreted in the context of the absolute cell counts (cells/L). Metabolic Panelon 11-09-2019 ALP [Catalytic activity/Vol] 91 U/L 33 - 136 [facility] Work Phone: Anion gap [Moles/Vol] 15 mmol/L 10 - 20 [facility] Work Phone: Bilirubin [Mass/Vol] 0.5 mg/dL 0.0 - 1.2 [facility] Work Phone: Calcium [Mass/Vol] 9.0 mg/dL 8.6 - 10.6 [facility] Work Phone: Chloride [Moles/Vol] 99 mmol/L 98 - 107 [facility] Work Phone: CO2 [Moles/Vol] 27 mmol/L 21 - 32 [facility] Work Phone: Creatinine [Mass/Vol] 0.91 mg/dL See Below [facility] Work Phone: Comment on above: Reference Range: 0.5 0 - 1.05 Glucose [Mass/Vol] 115 mg/dL above high threshold 74 - 99 [facility] Work Phone: Potassium [Moles/Vol] 4.3 mmol/L 3.5 - 5.3 [facility] Work Phone: Protein [Mass/Vol] 7.5 g/dL 6.4 - 8.2 [facility] Work Phone: Sodium [Moles/Vol] 137 mmol/L 136 - 145 [facility] Work Phone: Urea nitrogen [Mass/Vol] 20 mg/dL 6 - 23 [facility] Work Phone: Otheron 11-09-2019 Albumin BCP dye [Mass/Vol] 3.8 g/dL 3.4 - 5.0 [facility] Work Phone: ALT With P-5'-P [Catalytic activity/Vol] 14 U/L 7 - 45 [facility] Work Phone: Comment on above: Patients treated wit h Sulfasalazine may generate falsely decreased results for ALT. AST With P-5'-P [Catalytic activity/Vol] 19 U/L 9 - 39 [facility] Work Phone: 71 {mL/min/1.73m2} >60 [facility] Work Phone: Comment on above: CALCULATIONS OF ALVARO MATED GFR ARE PERFORMED USING THE MDRD STUDY EQUATION FOR THE IDMS-TRACEABLE CREATININE METHODS. CLIN CHEM 2007;53:766-72 59 {mL/min/1.73m2} Abnormal >60 [facility] Work Phone: Sedimentation Rate, Erythroc yteon 11-09-2019 ESR (Bld) [Velocity] 91 mm/h above high threshold 0 - 30 [facility] Work Phone: Cardiacon 09-06-2019 Natriuretic peptide B (Bld) [Mass/Vol] 167 pg/mL above high threshold 0 - 99 [facility] Work Phone: Comment on above: . <100 pg/mL - Heart failure -290 pg/mL - Intermediate probability of acute heart. [...] (Bld) [Volume fraction] 40.1 % See Below [facility] Work Phone: Comment on above: Reference Range: 36. 0 - 46.0 Hemoglobin (Bld) [Mass/Vol] 13.0 g/dL See Below [facility] Work Phone: Comment on above: Reference Range: 12. 0 - 16.0 MCV (RBC) [Entitic vol] 104 fL above high threshold 80 - 100 [facility] Work Phone: Platelets (Bld) [#/Vol] 225 {x10E9/L} 150 - 450 [facility] Work Phone: RBC (Bld) [#/Vol] 3.86 {x10E12/L} below low threshold See Below [facility] Work Phone: Comment on above: Reference Range: 4.0 0 - 5.20 WBC (Bld) [#/Vol] 6.4 {x10E9/L} 4.4 - 11.3 [facility] Work Phone: WBC (Bld) [#/Vol] 0.0 {/100_WBC} 0.0-0.0 [facility] Work Phone: Metabolic Panelon 09-06-2019 Anion gap [Moles/Vol] 22 mmol/L above high threshold 10 - 20 [facility] Work Phone: Calcium [Mass/Vol] 10.4 mg/dL 8.6 - 10.6 [facility] Work Phone: Chloride [Moles/Vol] 101 mmol/L 98 - 107 [facility] Work Phone: CO2 [Moles/Vol] 20 mmol/L below low threshold 21 - 32 [facility] Work Phone: Creatinine [Mass/Vol] 1.19 mg/dL above high threshold See Below [facility] Work Phone: Comment on above: Reference Range: 0.5 0 - 1.05 Glucose [Mass/Vol] 87 mg/dL 74 - 99 [facility] Work Phone: Potassium [Moles/Vol] 5.7 mmol/L above high threshold 3.5 - 5.3 [facility] Work Phone: Comment on above: MILD HEMOLYSIS DETEC MAURA. The result may be falsely elevated due tohemolysis or other interferents. Clinical correlation is recommended.Repeat testing may be considered. Sodium [Moles/Vol] 137 mmol/L 136 - 145 [facility] Work Phone: Urea nitrogen [Mass/Vol] 23 mg/dL 6 - 23 [facility] Work Phone: Otheron 09-06-2019 Erythrocyte distribution width (RBC) [Ratio] 13.6 % See Below [facility] Work Phone: Comment on above: Reference Range: 11. 5 - 14.5 MCHC (RBC) [Mass/Vol] 32.4 g/dL See Below [facility] Work Phone: Comment on above: Reference Range: 32. 0 - 36.0 43 {mL/min/1.73m2} Abnormal >60 [facility] Work Phone: 52 {mL/min/1.73m2} Abnormal >60 [facility] Work Phone: Comment on above: CALCULATIONS OF ALVARO MATED GFR ARE PERFORMED USING THE MDRD STUDY EQUATION FOR THE IDMS-TRACEABLE CREATININE METHODS. CLIN CHEM 2007;53:766-72 Thyroidon 09-06-2019 TSH Qn 2.22 {mIU/L} See Below [facility] Work Phone: Comment on above: Reference Range: 0.4 4 - 3.98 TSH testing is performed using different testing methodology at [facility] than at other [facility]. Direct result comparisons should only be made within the same method. Complete Blood Count + Stephaneasa fatima 12-16-2018 Basophils (Bld) [#/Vol] 0.06 {x10E9/L} See Below [facility] Work Phone: Comment on above: Reference Range: 0.0 0 - 0.10 Basophils/100 WBC (Bld) 0.8 % 0.0 - 2.0 [facility] Work Phone: Eosinophils (Bld) [#/Vol] 0.09 {x10E9/L} See Below [facility] Work Phone: Comment on above: Reference Range: 0.0 0 - 0.40 Eosinophils/100 WBC (Bld) 1.2 % 0.0 - 6.0 [facility] Work Phone: Erythrocyte distribution width (RBC) [Ratio] 13.1 % See Below [facility] Work Phone: Comment on above: Reference Range: 11. 5 - 14.5 Hematocrit (Bld) [Volume fraction] 35.7 % below low threshold See Below [facility] Work Phone: Comment on above: Reference Range: 36. 0 - 46.0 Hemoglobin (Bld) [Mass/Vol] 11.0 g/dL below low threshold See Below [facility] Work Phone: Comment on above: Reference Range: 12. 0 - 16.0 Lymphocytes (Bld) [#/Vol] 3.17 {x10E9/L} above high threshold See Below [facility] Work Phone: Comment on above: Reference Range: 0.8 0 - 3.00 Lymphocytes/100 WBC (Bld) 40.6 % See Below [facility] Work Phone: Comment on above: Reference Range: 13. 0 - 44.0 MCHC (RBC) [Mass/Vol] 30.8 g/dL below low threshold See Below [facility] Work Phone: Comment on above: Reference Range: 32. 0 - 36.0 MCV (RBC) [Entitic vol] 109 fL above high threshold 80 - 100 [facility] Work Phone: Monocytes (Bld) [#/Vol] 0.34 {x10E9/L} See Below [facility] Work Phone: Comment on above: Reference Range: 0.0 5 - 0.80 Monocytes/100 WBC (Bld) 4.4 % 2.0 - 10.0 [facility] Work Phone: Neutrophils (Bld) [#/Vol] 4.08 {x10E9/L} See Below [facility] Work Phone: Comment on above: Reference Range: 1.6 0 - 5.50 Neutrophils/100 WBC (Bld) 52.1 % See Below [facility] Work Phone: Comment on above: Reference Range: 40. 0 - 80.0 Platelets (Bld) [#/Vol] 362 {x10E9/L} 150 - 450 [facility] Work Phone: RBC (Bld) [#/Vol] 3.27 {x10E12/L} below low threshold See Below [facility] Work Phone: Comment on above: Reference Range: 4.0 0 - 5.20 WBC (Bld) [#/Vol] 0.0 {/100_WBC} 0.0-0.0 [facility] Work Phone: WBC (Bld) [#/Vol] 7.8 {x10E9/L} 4.4 - 11.3 [facility] Work Phone: Complete Blood Count + Differential 0.9 % 0.0 - 0.9 [facility] Work Phone: Comment on above: Percent differential counts (%) should be interpreted in the context of the absolute cell counts (cells/L). Complete Blood Count + Alvino fatima 12-09-2018 Basophils (Bld) [#/Vol] 0.04 {x10E9/L} See Below [facility] Work Phone: Comment on above: Reference Range: 0.0 0 - 0.10 Basophils/100 WBC (Bld) 0.5 % 0.0 - 2.0 [facility] Work Phone: Eosinophils (Bld) [#/Vol] 0.20 {x10E9/L} See Below [facility] Work Phone: Comment on above: Reference Range: 0.0 0 - 0.40 Eosinophils/100 WBC (Bld) 2.4 % 0.0 - 6.0 [facility] Work Phone: Erythrocyte distribution width (RBC) [Ratio] 13.3 % See Below [facility] Work Phone: Comment on above: Reference Range: 11. 5 - 14.5 Hematocrit (Bld) [Volume fraction] 32.1 % below low threshold See Below [facility] Work Phone: Comment on above: Reference Range: 36. 0 - 46.0 Hemoglobin (Bld) [Mass/Vol] 10.0 g/dL below low threshold See Below [facility] Work Phone: Comment on above: Reference Range: 12. 0 - 16.0 Lymphocytes (Bld) [#/Vol] 2.28 {x10E9/L} See Below [facility] Work Phone: Comment on above: Reference Range: 0.8 0 - 3.00 Lymphocytes/100 WBC (Bld) 26.8 % See Below [facility] Work Phone: Comment on above: Reference Range: 13. 0 - 44.0 MCHC (RBC) [Mass/Vol] 31.2 g/dL below low threshold See Below [facility] Work Phone: Comment on above: Reference Range: 32. 0 - 36.0 MCV (RBC) [Entitic vol] 107 fL above high threshold 80 - 100 [facility] Work Phone: Monocytes (Bld) [#/Vol] 0.63 {x10E9/L} See Below [facility] Work Phone: Comment on above: Reference Range: 0.0 5 - 0.80 Monocytes/100 WBC (Bld) 7.4 % 2.0 - 10.0 [facility] Work Phone: Neutrophils (Bld) [#/Vol] 5.30 {x10E9/L} See Below [facility] Work Phone: Comment on above: Reference Range: 1.6 0 - 5.50 Neutrophils/100 WBC (Bld) 62.3 % See Below [facility] Work Phone: Comment on above: Reference Range: 40. 0 - 80.0 Platelets (Bld) [#/Vol] 298 {x10E9/L} 150 - 450 [facility] Work Phone: RBC (Bld) [#/Vol] 2.99 {x10E12/L} below low threshold See Below [facility] Work Phone: Comment on above: Reference Range: 4.0 0 - 5.20 WBC (Bld) [#/Vol] 0.0 {/100_WBC} 0.0-0.0 [facility] Work Phone: WBC (Bld) [#/Vol] 8.5 {x10E9/L} 4.4 - 11.3 [facility] Work Phone: Complete Blood Count + Differential 0.6 % 0.0 - 0.9 [facility] Work Phone: Comment on above: Percent [...] gap [Moles/Vol] 14 mmol/L 10 - 20 [facility] Work Phone: Calcium [Mass/Vol] 10.0 mg/dL 8.6 - 10.6 [facility] Work Phone: Chloride [Moles/Vol] 102 mmol/L 98 - 107 [facility] Work Phone: CO2 [Moles/Vol] 23 mmol/L 21 - 32 [facility] Work Phone: Creatinine [Mass/Vol] 2.05 mg/dL above high threshold See Below [facility] Work Phone: Comment on above: Reference Range: 0.5 0 - 1.05 Glucose [Mass/Vol] 88 mg/dL 74 - 99 [facility] Work Phone: Potassium [Moles/Vol] 5.0 mmol/L 3.5 - 5.3 [facility] Work Phone: Sodium [Moles/Vol] 134 mmol/L below low threshold 136 - 145 [facility] Work Phone: Urea nitrogen [Mass/Vol] 61 mg/dL above high threshold 6 - 23 [facility] Work Phone: Otheron 12-09-2018 28 {mL/min/1.73m2} Abnormal >60 [facility] Work Phone: Comment on above: CALCULATIONS OF ALVARO MATED GFR ARE PERFORMED USING THE MDRD STUDY EQUATION FOR THE IDMS-TRACEABLE CREATININE METHODS. CLIN CHEM 2007;53:766-72 23 {mL/min/1.73m2} Abnormal >60 [facility] Work Phone: TSH - Thyroid Stimulating Ho rmkellen, Serumon 12-09-2018 TSH Qn 2.35 {mIU/L} See Below [facility] Work Phone: Comment on above: Reference Range: 0.4 4 - 3.98 TSH testing is performed using different testing methodology at [facility] than at other [facility]. Direct result comparisons should only be made within the same method.. Patients receiving more than 5 mg/day of biotin may have interference in test results. A sample should be taken no sooner than eight hours after previous dose. Contact [phone] for additional information. Urinalysison 12-09-2018 Appearance (U) CLEAR CLEAR [facility] Work Phone: Color (U) YELLOW See Below [facility] Work Phone: Comment on above: Reference Range: STR AW,YELLOW Glucose Ql (U) Negative NEGATIVE [facility] Work Phone: Ketones Ql (U) Negative NEGATIVE [facility] Work Phone: Leukocyte esterase Test strip Ql (U) SMALL (1+) Abnormal NEGATIVE [facility] Work Phone: pH (U) 5.0 [pH] 5.0 - 8.0 [facility] Work Phone: Protein (U) [Mass/Vol] Negative NEGATIVE [facility] Work Phone: RBC (U) [#/Vol] Negative NEGATIVE [facility] Work Phone: Specific gravity (U) [Rel density] 1.012 See Below [facility] Work Phone: Comment on above: Reference Range: 1.0 05 - 1.035 Urinalysis Negative NEGATIVE [facility] Work Phone: Urinalysis <2.0 0.0 - 1.9 [facility] Work Phone: Urinalysis, Microscopicon RBC (Bld) [#/Vol] <1 0-5 [facility] Work Phone: Urinalysis, Microscopic 6 {/HPF} Abnormal 0-5 [facility] Work Phone: Urinalysis, Microscopic 1 {/HPF} [facility] Work Phone: Urinalysis, Microscopic 2+ [facility] Work Phone: Vitamin B12, Serumon 019 Cobalamin (Vitamin B12) [Mass/Vol] 709 pg/mL 211 - 911 [facility] Work Phone: Hematologyon 11-30-2018 Hematocrit (Bld) [Volume fraction] 34.2 % below low threshold See Below [facility] Work Phone: Comment on above: Reference Range: 36. 0 - 46.0 Hemoglobin (Bld) [Mass/Vol] 10.6 g/dL below low threshold See Below [facility] Work Phone: Comment on above: Reference Range: 12. 0 - 16.0 MCV (RBC) [Entitic vol] 107 fL above high threshold 80 - 100 [facility] Work Phone: Platelets (Bld) [#/Vol] 348 {x10E9/L} 150 - 450 [facility] Work Phone: RBC (Bld) [#/Vol] 3.19 {x10E12/L} below low threshold See Below [facility] Work Phone: Comment on above: Reference Range: 4.0 0 - 5.20 WBC (Bld) [#/Vol] 9.7 {x10E9/L} 4.4 - 11.3 [facility] Work Phone: WBC (Bld) [#/Vol] 0.0 {/100_WBC} 0.0-0.0 [facility] Work Phone: Metabolic Panelon 11-30-2018 ALP [Catalytic activity/Vol] 61 U/L 33 - 136 [facility] Work Phone: Anion gap [Moles/Vol] 15 mmol/L 10 - 20 [facility] Work Phone: Bilirubin [Mass/Vol] 0.4 mg/dL 0.0 - 1.2 [facility] Work Phone: Calcium [Mass/Vol] 10.5 mg/dL 8.6 - 10.6 [facility] Work Phone: Chloride [Moles/Vol] 105 mmol/L 98 - 107 [facility] Work Phone: CO2 [Moles/Vol] 25 mmol/L 21 - 32 [facility] Work Phone: Creatinine [Mass/Vol] 1.65 mg/dL above high threshold See Below [facility] Work Phone: Comment on above: Reference Range: 0.5 0 - 1.05 Glucose [Mass/Vol] 82 mg/dL 74 - 99 [facility] Work Phone: Potassium [Moles/Vol] 4.3 mmol/L 3.5 - 5.3 [facility] Work Phone: Protein [Mass/Vol] 7.0 g/dL 6.4 - 8.2 [facility] Work Phone: Sodium [Moles/Vol] 141 mmol/L 136 - 145 [facility] Work Phone: Urea nitrogen [Mass/Vol] 43 mg/dL above high threshold 6 - 23 [facility] Work Phone: Otheron 11-30-2018 Albumin BCP dye [Mass/Vol] 3.6 g/dL 3.4 - 5.0 [facility] Work Phone: ALT With P-5'-P [Catalytic activity/Vol] 10 U/L 7 - 45 [facility] Work Phone: Comment on above: Patients treated wit h Sulfasalazine may generate falsely decreased results for ALT. AST With P-5'-P [Catalytic activity/Vol] 14 U/L 9 - 39 [facility] Work Phone: Erythrocyte distribution width (RBC) [Ratio] 13.6 % See Below [facility] Work Phone: Comment on above: Reference Range: 11. 5 - 14.5 MCHC (RBC) [Mass/Vol] 31.0 g/dL below low threshold See Below [facility] Work Phone: Comment on above: Reference Range: 32. 0 - 36.0 36 {mL/min/1.73m2} Abnormal >60 [facility] Work Phone: Comment on above: CALCULATIONS OF ALVARO MATED GFR ARE PERFORMED USING THE MDRD STUDY EQUATION FOR THE IDMS-TRACEABLE CREATININE METHODS. CLIN CHEM 2007;53:766-72 30 {mL/min/1.73m2} Abnormal >60 [facility] Work Phone: Hematologyon 05-26-2018 Hematocrit (Bld) [Volume fraction] 38.6 % See Below [facility] Work Phone: Comment on above: Reference Range: 36. 0 - 46.0 Hemoglobin (Bld) [Mass/Vol] 12.0 g/dL See Below [facility] Work Phone: Comment on above: Reference Range: 12. 0 - 16.0 MCV (RBC) [Entitic vol] 108 fL above high threshold 80 - 100 [facility] Work Phone: Platelets (Bld) [#/Vol] 245 {x10E9/L} 150 - 450 [facility] Work Phone: RBC (Bld) [#/Vol] 3.56 {x10E12/L} below low threshold See Below [facility] Work Phone: Comment on above: Reference Range: 4.0 0 - 5.20 WBC (Bld) [#/Vol] 6.9 {x10E9/L} 4.4 - 11.3 [facility] Work Phone: WBC (Bld) [#/Vol] 0.1 {/100_WBC} 0.0-0.0 [facility] Work Phone: Lipid Panelon 05-26-2018 Cholesterol [Mass/Vol] 165 mg/dL 0 - 199 [facility] Work Phone: Comment on above: . [...] guidelines reference: NCEP ATPIII Guidelines, LAURA 2001, 258:[id number]. Venipuncture immediately after or during the administration of Metamizole may lead to falsely low results. Testing should be performed immediately prior to Metamizole dosing. Cholesterol in HDL [Mass/Vol] 44.1 mg/dL [facility] Work Phone: Comment on above: . AGE VERY LOW LOW N ORMAL HIGH 0-19 Y < 35 < 40 40-45 ---- 20- 24 Y ---- < 40 >45 ---- >24 Y ---- < 40 40-60 >60. Cholesterol in LDL [Mass/Vol] 82 mg/dL 0 - 99 [facility] Work Phone: Comment on above: . NEAR BORD AGE TORI RABLE OPTIMAL HIGH HIGH VERY HIGH 0-19 Y 0 - 109 --- 110-129 >/= 130 ---- 20-24 Y 0 - 119 --- 120-159 >/= 160 ---- >24 Y 0 - 99 100-129 130-159 160-189 >/=190. Cholesterol.total/Cho lesterol in HDL [Mass ratio] 3.7 {ratio} [facility] Work Phone: Comment on above: REF VALUESDESIRABLE < 3.4HIGH RISK > 5.0 Triglyceride [Mass/Vol] 194 mg/dL above high threshold 0 - 149 [facility] Work Phone: Comment on above: . [...] Lipid Panel 39 mg/dL 0 - 40 [facility] Work Phone: Metabolic Panelon 05-26-2018 Anion gap [Moles/Vol] 15 mmol/L 10 - 20 [facility] Work Phone: Calcium [Mass/Vol] 10.0 mg/dL 8.6 - 10.6 [facility] Work Phone: Chloride [Moles/Vol] 105 mmol/L 98 - 107 [facility] Work Phone: CO2 [Moles/Vol] 26 mmol/L 21 - 32 [facility] Work Phone: Creatinine [Mass/Vol] 1.15 mg/dL above high threshold See Below [facility] Work Phone: Comment on above: Reference Range: 0.5 0 - 1.05 Glucose [Mass/Vol] 72 mg/dL below low threshold 74 - 99 [facility] Work Phone: Potassium [Moles/Vol] 4.8 mmol/L 3.5 - 5.3 [facility] Work Phone: Sodium [Moles/Vol] 141 mmol/L 136 - 145 [facility] Work Phone: Urea nitrogen [Mass/Vol] 29 mg/dL above high threshold 6 - 23 [facility] Work Phone: Otheron 05-26-2018 Erythrocyte distribution width (RBC) [Ratio] 13.6 % See Below [facility] Work Phone: Comment on above: Reference Range: 11. 5 - 14.5 MCHC (RBC) [Mass/Vol] 31.1 g/dL below low threshold See Below [facility] Work Phone: Comment on above: Reference Range: 32. 0 - 36.0 54 {mL/min/1.73m2} Abnormal >60 [facility] Work Phone: Comment on above: CALCULATIONS OF ALVARO MATED GFR ARE PERFORMED USING THE MDRD STUDY EQUATION FOR THE IDMS-TRACEABLE CREATININE METHODS. CLIN CHEM 2007;53:766-72 45 {mL/min/1.73m2} Abnormal >60 [facility] Work Phone: Vitamin D 25-Hydroxyon 05-26 Calcidiol [Mass/Vol] 38 ng/mL [facility] Work Phone: Comment on above: .DEFICIENCY: [...] including severe height loss of T8 and W40nqtdzbloj body and approximately 50% height loss of [...] visualizedabdominal aorta and the iliac arteries. Normal [facility] [place] DIFFERENTIAL[place] 11-06 % AUTOMATED IMMATURE GRAN 0.3 % Normal 0.0 - 0.9 [facility] Comment on above: Result Comment: Perc ent differential counts (%) should be interpreted in the context of the absolute cell counts (cells/L). Performed By: #### V TDOH ####[facility] [place] [address] % NEUTROPHIL 64.8 % Normal 40.0 - 80.0 [facility] Comment on above: Performed By: #### V TDOH ####[facility] [place] [address] Basophils/100 WBC Auto (Bld) 0.04 x10E9/L Normal 0.00 - 0.10 [facility] Comment on above: Performed By: #### V TDOH ####[facility] [place] [address] Basophils/100 WBC Auto (Bld) 0.7 % Normal 0.0 - 2.0 [facility] Comment on above: Performed By: #### V TDOH ####[facility] [place] [address] Eosinophils Auto #/vol (Bld) 0.06 10*3/uL Normal 0.00 - 0.40 [facility] Comment on above: Performed By: #### V TDOH ####[facility] [place] [address] Eosinophils/100 WBC Auto (Bld) 1.0 % Normal 0.0 - 6.0 [facility] Comment on above: Performed By: #### V TDOH ####[facility] [place] [address] Erythrocyte distribution width Auto Ratio (RBC) 16.1 % High 11.5 - 14.5 [facility] Comment on above: Performed By: #### V TDOH ####[facility] [place] [address] Hematocrit Auto Volume Fraction (Bld) 39.0 % Normal 36.0 - 46.0 [facility] Comment on above: Performed By: #### V TDOH ####[facility] [place] [address] Hemoglobin mass conc (Bld) 12.0 g/dL Normal 12.0 - 16.0 [facility] Comment on above: Performed By: #### V TDOH ####[facility] [place] [address] Lymphocytes Auto #/vol (Bld) 1.59 10*3/uL Normal 0.80 - 3.00 [facility] Comment on above: Performed By: #### V TDOH ####[facility] [place] [address] Lymphocytes/100 WBC Auto (Bld) 27.1 % Normal 13.0 - 44.0 [facility] Comment on above: Performed By: #### V TDOH ####[facility] [place] [address] MCHC Auto mass conc (RBC) 30.8 g/dL Low 32.0 - 36.0 [facility] Comment on above: Performed By: #### V TDOH ####[facility] [place] [address] MCV Auto Entitic volume (RBC) 101 fL High 80 - 100 [facility] Comment on above: Performed By: #### V TDOH ####[facility] [place] [address] Monocytes Auto #/vol (Bld) 0.36 10*3/uL Normal 0.05 - 0.80 [facility] Comment on above: Performed By: #### V TDOH ####[facility] [place] [address] Monocytes/100 WBC Auto (Bld) 6.1 % Normal 2.0 - 10.0 [facility] Comment on above: Performed By: #### V TDOH ####[facility] [place] [address] Neutrophils Auto #/vol (Bld) 3.79 10*3/uL Normal 1.60 - 5.50 [facility] Comment on above: Performed By: #### V TDOH ####[facility] [place] [address] Platelets Auto #/vol (Bld) 300 10*3/uL Normal 150 - 450 [facility] Comment on above: Performed By: #### V TDOH ####[facility] [place] [address] RBC Auto #/vol (Bld) 3.88 x10E12/L Low 4.00 - 5.20 [facility] Comment on above: Performed By: #### V TDOH ####[facility] [place] [address] WBC Auto #/vol (Bld) 5.9 10*3/uL Normal 4.4 - 11.3 [facility] Comment on above: Performed By: #### V TDOH ####[facility] [place] [address] COMPREHENSIVE PANELon 2017 Albumin mass conc 3.6 g/dL Normal 3.4 - 5.0 [facility] Comment on above: Performed By: #### V TDOH ####[facility] [place] [address] ALP enzyme act/vol 56 U/L Normal 33 - 136 [facility] Comment on above: Performed By: #### V TDOH ####[facility] [place] [address] ALT enzyme act/vol 13 U/L Normal 7 - 45 [facility] Comment on above: Result Comment: Daniel ents treated with Sulfasalazine may generate falsely decreased results for ALT. Performed By: #### V TDOH ####[facility] [place] [address] Anion gap 3 molar conc 15 mmol/L Normal 10 - 20 [facility] Comment on above: Performed By: #### V TDOH ####[facility] [place] [address] AST enzyme act/vol 19 U/L Normal 9 - 39 [facility] Comment on above: Performed By: #### V TDOH ####[facility] [place] [address] Bilirubin mass conc 0.3 mg/dL Normal 0.0 - 1.2 [facility] Comment on above: Performed By: #### V TDOH ####[facility] [place] [address] Calcium mass conc 9.5 mg/dL Normal 8.6 - 10.3 [facility] Comment on above: Performed By: #### V TDOH ####[facility] [place] [address] Chloride molar conc 105 mmol/L Normal 98 - 107 [facility] Comment on above: Performed By: #### V TDOH ####[facility] [place] [address] Creatinine mass conc 1.06 mg/dL High 0.50 - 1.05 [facility] Comment on above: Performed By: #### V TDOH ####[facility] [place] [address] GFR- AM. 61 mL/min/1.73m2 Normal >60 [facility] Comment on above: Result Comment: CALC ULATIONS OF ESTIMATED GFR ARE PERFORMED USING THE MDRD STUDY EQUATION FOR THE IDMS-TRACEABLE CREATININE METHODS. CLIN CHEM 2007;53:766-72 Performed By: #### V TDOH ####[facility] [place] [address] GFR-NON AM. 50 mL/min/1.73m2 Abnormal >60 [facility] Comment on above: Performed By: #### V TDOH ####[facility] [place] [address] Glucose mass conc 109 mg/dL High 74 - 99 [facility] Comment on above: Performed By: #### V TDOH ####[facility] [place] [address] HCO3 molar conc (Bld) 24 mmol/L Normal 21 - 32 [facility] Comment on above: Performed By: #### V TDOH ####[facility] [place] [address] Potassium molar conc 4.5 mmol/L Normal 3.5 - 5.3 [facility] Comment on above: Performed By: #### V TDOH ####[facility] [place] [address] Protein mass conc 7.3 g/dL Normal 6.4 - 8.2 [facility] Comment on above: Performed By: #### V TDOH ####[facility] [place] [address] Sodium molar conc 139 mmol/L Normal 136 - 145 [facility] Comment on above: Performed By: #### V TDOH ####[facility] [place] [address] Urea nitrogen mass conc 19 mg/dL Normal 6 - 23 [facility] Comment on above: Performed By: #### V TDOH ####[facility] [place] [address] BASIC METABOLIC PANELon 09-0 Anion gap 3 molar conc 9 mmol/L Low 10 - 20 [facility] Comment on above: Performed By: #### V TDOH ####[facility] [place] [address] Calcium mass conc 8.4 mg/dL Low 8.6 - 10.3 [facility] Comment on above: Performed By: #### V TDOH ####[facility] [place] [address] Chloride molar conc 110 mmol/L High 98 - 107 [facility] Comment on above: Performed By: #### V TDOH ####[facility] [place] [address] Creatinine mass conc 0.61 mg/dL Normal 0.50 - 1.05 [facility] Comment on above: Performed By: #### V TDOH ####[facility] [place] [address] GFR- AM. >60 Normal >60 [facility] Comment on above: Result Comment: CALC ULATIONS OF ESTIMATED GFR ARE PERFORMED USING THE MDRD STUDY EQUATION FOR THE IDMS-TRACEABLE CREATININE METHODS. CLIN CHEM 2007;53:766-72 Performed By: #### V TDOH ####[facility] [place] [address] GFR-NON AM. >60 Normal >60 [facility] Comment on above: Performed By: #### V TDOH ####[facility] [place] [address] Glucose mass conc 103 mg/dL High 74 - 99 [facility] Comment on above: Performed By: #### V TDOH ####[facility] [place] [address] HCO3 molar conc (Bld) 26 mmol/L Normal 21 - 32 [facility] Comment on above: Performed By: #### V TDOH ####[facility] [place] [address] Potassium molar conc 3.9 mmol/L Normal 3.5 - 5.3 [facility] Comment on above: Performed By: #### V TDOH ####[facility] [place] [address] Sodium molar conc 141 mmol/L Normal 136 - 145 [facility] Comment on above: Performed By: #### V TDOH ####[facility] [place] [address] Urea nitrogen mass conc 10 mg/dL Normal 6 - 23 [facility] Comment on above: Performed By: #### V TDOH ####[facility] [place] [address] CBCon 10-13-2017 Erythrocyte distribution width Auto Ratio (RBC) 16.1 % High 11.5 - 14.5 [facility] Comment on above: Performed By: #### V TDOH ####[facility] [place] [address] Hematocrit Auto Volume Fraction (Bld) 32.7 % Low 36.0 - 46.0 [facility] Comment on above: Performed By: #### V TDOH ####[facility] [place] [address] Hemoglobin mass conc (Bld) 10.3 g/dL Low 12.0 - 16.0 [facility] Comment on above: Performed By: #### V TDOH ####[facility] [place] [address] MCHC Auto mass conc (RBC) 31.5 g/dL Low 32.0 - 36.0 [facility] Comment on above: Performed By: #### V TDOH ####[facility] [place] [address] MCV Auto Entitic volume (RBC) 98 fL Normal 80 - 100 [facility] Comment on above: Performed By: #### V TDOH ####[facility] [place] [address] Platelets Auto #/vol (Bld) 238 10*3/uL Normal 150 - 450 [facility] Comment on above: Performed By: #### V TDOH ####[facility] [place] [address] RBC Auto #/vol (Bld) 3.33 x10E12/L Low 4.00 - 5.20 [facility] Comment on above: Performed By: #### V TDOH ####[facility] [place] [address] WBC Auto #/vol (Bld) 7.3 10*3/uL Normal 4.4 - 11.3 [facility] Comment on above: Performed By: #### V TDOH ####[facility] [place] [address] Daily Progress Note-Surgery ( Medical Student Note [...] an uneventful night. Objective Data: Objective Information:T [id number]/729 8%Date/Time10/13 6:5210/13 6:5210/13 6:5210/13 6:5210/13 6:52Range(36.8C - [...] Injectable Flush: 10 mL IntraVenous Flush Every 82Jfxnd25. Vancomycin Oral Liquid: 250 mg Oral Every 6 Hours PRN Medications ---- 1. Acetaminophen: 650 mg Oral Every 4 Hours2. diphenhydrAMINE 2% Topical: 1 application(s) Topical 4 Times a Day3. Heparin Flush 10 unit/ mL PF Injectable: 5 mL IntraVenous Flush Every 21Ncavo5. Heparin Flush 10 unit/ mL PF Injectable [...] 16.1 H Basic Metabolic Panel Trending View [id number]-[id number] 05:30:00 12-Oct-2017 19:27:00Glucose, Todiy862 H 148 GCI693 141K3.9 4.8RF000 H 112 HBicarbonate, Serum26 22Anion Gap, Serum9 L 75XOV76 21XRWAI1.61 0.64GFR-Non >60 >60GFR->60 >60Calcium, Serum8.4 L 8.5 [...] by mouth vanco needed Electronic Signatures:Lula Merrill ([facility]) (Signed 13-Oct-2017 10:19)Authored: Service, Subjective Data, Objective Data, Assessment and Plan,Signature/Cosignature/A ttestationManny Arana) (Signed 13-Oct-2017 17:09)Authored: Signature/Cosignature/Attest ationCo-Signer: Service, Subjective Data, Objective Data, Assessment and Plan,Signature/Cosignature/A ttestation Last Updated: 13-Oct-2017 17:09 by Manny Arana) [facility] Discharge Planning Noteon Discharge Planning Note Discharge Needs Assessment:? Discharge Planning Assessment Duwz42-Lke-5830? Discharge Planning Assessment Completed bySom Chaudhari RNCC Adult Information:? Lives Withspouse? Financial Concernsnone Patient [...] call from son- Ganga: [place] his [place]. He states that his parents arehaving a difficult time at home by themselves due to worsening confusion inboth of them. He states his mother has been the sort supervisor of his father whohas had CVA's [...] moving into a facility near him in [facility] that he can visit them more readily. [...] dementias progress. Above was relayed to Som Jones.RN/Billing Customer Service Representative who is working with this pt today. BRANDON Bonner 10/13/17 0900 Met with Brayan at bedside and Brayan chose [facility] for therapy, Referral sent and patient will be discharged to [facility] today, Discharge orders sent via [employer]. Som Chaudhari [facility] Electronic Signatures:Som Chaudhari (CLIN COOR) (Signed 13-Oct-2017 16:32)Authored: Discharge Planning Elaina Dacosta (LINING STUFFER) (Signed 13-Oct-2017 12:46)Authored: Discharge Planning Note Last Updated: 13-Oct-2017 16:32 by Som Chaudhari (CLIN COOR) References:1. Data Referenced From 5. Education 10/09/2017 09:02 PM2. Data Referenced From Admission Risk Screen - Adult 10/09/2017 09:02 PM Normal [facility] Discharge Uyqihsc8pe 018 Protein mass conc Discharge Orders:Ant icipated Discharge Date:? Anticipated Discharge [id number] Problem List: Admitting Dx:? Clostridium difficile colitis: Catalog Name: Enterocolitis due toClostridium difficile, not specified as recurrent Additional Dx:? 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 Hypokalemia: Catalog Name: Hypokalemia Significant Events:CABG (2 vessel): Past Surgical History, 29-Bxs-7567Chsqymo Catheterization: Past Surgical Historycataract: Past Surgical History, bilateral with lens implantappendectomy: Past Surgical History, 27 years agocomplete hysterectomy: Past Surgical History, 27 years agobilat knee replacement: Past Surgical HistoryDNRCCA 10/09/2017: Past Medical HistoryCongestive Heart Failure (CHF): Past Medical HistoryChronic anemia: Past Medical HistoryVenous thromboembolism: Past Medical HistorySepsis: Past Medical HistoryCoronary atherosclerosis: Past Medical HistoryNon ST elevation CA: Past Medical History, 14-Wph-4664LDH: Past Medical HistoryGERD: Past Medical HistoryUTI: Past Medical Historyumbilical hernia: Past Medical Historydiverticulitis: Past Medical Historyosteoporosis: Past Medical Historyanxiety: Past Medical Historydepression: Past Medical Historypost shingles neuropathy: Past Medical Historyhypercholesterolemia: Past Medical Historyherniated disc lumbar area: Past Medical Historyarthritis: Past Medical HistoryHypertension (HTN): Past Medical Historygi bleed: Past Medical Historymitral valve regurgitation: Past Medical Historycolitis: Past Medical HistoryFamily spokesperson: Other, CARLOS [phone] BROTHERNANCY VELOZ [phone] Use: OtherClostridium difficile toxin (C-Diff): Infection Control, 47-Ugq-9499Epsatwkcmpw difficile toxin (C-Diff): Infection Control, 10-Fxe-5345Hvuhdacejpd difficile toxin (C-Diff): Infection Control, 27-Aug-2012, camewith ( [facility])Methicillin-Resistant Staph Aureus (MRSA): Infection Control, Mar 2012, sputum.Influenza- Influenza Virus: Immunizations, 85-Bir-1237TLY- Pneumococcal conjugate vaccine: Immunizations, 12-Oct-2017.Pneumonia- Pneumococcal polysaccharide vaccine-adult: Immunizations.Influenza- Influenza Virus: Immunizations, 34-Lvj-5049Cabnjkb Information: Contacts, dontae Schuler [phone] Hospital Providers:Provider RoleProvider Name? Clif Morataya? Manny Mcbride? Benjy Pruitt? Aria Schmitt DNAR:? DNAR StatusDNAR Activity:activity as tolerated. Diet:? Dietlow fiber? Diet Consistency/Texturesoft Additive/Supplement 1:Supplement. Boost Plus 1 by mouth 2 times a day. Hospital Course (Home Care/Gold Form):Hospital Course:? Hospital Course: include significant abnormal lab year old female from home with who stated that she has had abdominalpain, diarrhea, not eating, generalized weakness for the past one week or sobut worse since Thursday. Denied f/c. Has some urinary discomfort. PMHxsignificant for failure to thrive, gastrocutaneous fistula, constipation,ileus, small bowel obstruction, transient ischemic colitis, anemia, proteincalorie malnutrition, hypokalemia, hypomagnesemia and [facility]. Patient has had multiple abdominalsurgeries in the past. She was recently discharged from the hospital on09/01/17 and then a week later for management of small bowel obstruction andAMS. Treatment course in the ED included starting IV fluids, Cipro, Flagyl and oralVanco.stool for c diff +.Sodium 135, K 4.1, Bun/Creat 27/1.73Access started by PICC LICENSED SALES PRODUCER in ED Hospital course: Patient was admitted to [facility] for Acute colitis with C. Diff,hypokalemia, [...] days):? Chemotherapyno? Dialysisno? IV Medicationyes? Last Date Mnxdowso23-Pam-6708? Oxygen Therapyno? Transfusionsno? Feverno? Radiationno? Ventilatorno? Tracheostomyno? Suctioningno Nutrition:? Nutritional Statusfeeds self Sensory/Comfort:? Visionadequate? Hearingadequate? Speechaphasia? Painyes? Pain Typechronic arthritic? Pain Locationknees, back? Whenvaries? Pain Relieved Byacetaminophen Elimination:? Bladdercontinent? Bowelcontinent? Last Bowel Kutfyinm87-Xru-0202? Toiletingtoilet Safety:? Siderailsyes? Siderails Number/Reason2 for saftey? Restraintsno? Sitterno? Fall Riskprevious falls, weakness Medication/Hygiene/Mobility: ? Medication Administrationtotal dependent? Bathingassist? Dressingassist? Bed Mobilityassist? Wheelchairassist? Transfersassist? Ambulationassist Gold Form - Bobbin Loose End Finder Summary:Referral Information:? Referral [facility]? Referring Facility [facility]? Contact Sebastian Chaudhari [facility]? Contact Phone [phone] Mental & Functional Status:? Capacity For Independent Living/Insurance Account Assistant Planreturn home? Mental/Functional Commentalert and oriented Electronic Signatures:Aria Gandhi) (Signed 13-Oct-2017 14:43)Authored: Provider FINAL REVIEW of OrdersSom Chaudhari (CLIN COOR) (Signed 13-Oct-2017 10:27)Authored: Gold Form - Bobbin Loose End Finder SummaryVanessa Cortes (RN PRN) (Signed 13-Oct-2017 16:25)Authored: Mikal Form - Nursing SummaryAlex Tillman (POLICYHOLDER INFORMATION CLERK-DATA STORAGE SPECIALIST) (Signed 13-Oct-2017 14:39)Authored: Discharge Orders, Hospital Course (Home Care/Gold Form), ProviderFINAL REVIEW of Orders Last Updated: 13-Oct-2017 16:25 by Vanessa Cortes (RN PRN) Normal [facility] MAGNESIUMon 10-13-2017 Magnesium mass conc 1.87 mg/dL Normal 1.60 - 2.40 [facility] Comment on above: Performed By: #### V TDOH ####[facility] [place] [address] BASIC METABOLIC PANELon Anion gap 3 molar conc 11 mmol/L Normal 10 - 20 [facility] Comment on above: Performed By: #### V TDOH ####[facility] [place] [address] Calcium mass conc 8.5 mg/dL Low 8.6 - 10.3 [facility] Comment on above: Performed By: #### V TDOH ####[facility] [place] [address] Chloride molar conc 112 mmol/L High 98 - 107 [facility] Comment on above: Performed By: #### V TDOH ####[facility] [place] [address] Creatinine mass conc 0.64 mg/dL Normal 0.50 - 1.05 [facility] Comment on above: Performed By: #### V TDOH ####[facility] [place] [address] GFR- AM. >60 Normal >60 [facility] Comment on above: Result Comment: CALC ULATIONS OF ESTIMATED GFR ARE PERFORMED USING THE MDRD STUDY EQUATION FOR THE IDMS-TRACEABLE CREATININE METHODS. CLIN CHEM 2007;53:766-72 Performed By: #### V TDOH ####[facility] [place] [address] GFR-NON AM. >60 Normal >60 [facility] Comment on above: Performed By: #### V TDOH ####[facility] [place] [address] Glucose mass conc 148 mg/dL High 74 - 99 [facility] Comment on above: Performed By: #### V TDOH ####[facility] [place] [address] HCO3 molar conc (Bld) 22 mmol/L Normal 21 - 32 [facility] Comment on above: Performed By: #### V TDOH ####[facility] [place] [address] Potassium molar conc 4.4 mmol/L Normal 3.5 - 5.3 [facility] Comment on above: Performed By: #### V TDOH ####[facility] [place] [address] Sodium molar conc 141 mmol/L Normal 136 - 145 [facility] Comment on above: Performed By: #### V TDOH ####[facility] [place] [address] Urea nitrogen mass conc 11 mg/dL Normal 6 - 23 [facility] Comment on above: Performed By: #### V TDOH ####[facility] [place] [address] Daily Progress Note-Medicine on 10-12-2017 Protein mass [...] problems with insomnia Objective Data: Objective Information:T [id number]/719 5%Date/Time10/12 14: 14: 14: 14: 14:20Range(36.9C - [...] Injectable Flush: 10 mL IntraVenous Flush Every 86Duxww72. Vancomycin Oral Liquid: 250 mg Oral Every 6 Hours PRN Medications ---- 1. Acetaminophen: 650 mg Oral Every 4 Hours2. diphenhydrAMINE 2% Topical: 1 application(s) Topical 4 Times a Day3. Heparin Flush 10 unit/ mL PF Injectable: 5 mL IntraVenous Flush Every 60Zrgdr3. Heparin Flush 10 unit/ mL PF Injectable [...] PICC line inserted in ED by PICC DATA STORAGE SPECIALIST Anxiety, depression- continue Wellbutrin- continue Sertraline Insomnia- hold trazadone- held ambien - pt confused overnight GERD- continue pantoprazole Neuropathy pain- hold Tizandine- continue Neurotin for now Urinary frequency- continue oxybutynin Impaired Functional Mobility- PT/OT evaluation, likely snf DVT pps- Ambulation, Lovenox held due to anemia Disposition: [facility] med/surg. Snf soon. Electronic Signatures:Alex Mayer (POLICYHOLDER INFORMATION CLERK-DATA STORAGE SPECIALIST) (Signed 12-Oct-2017 16:31)Authored: Service, Subjective Data, Objective Data, Assessment and Plan,Signature/Cosignature/A ttestation Last Updated: 12-Oct-2017 16:31 by Alex Mayer (POLICYHOLDER INFORMATION CLERK-DATA STORAGE SPECIALIST) Normal [facility] HIP, UNILATERAL W/PELVIS WHE N [...] Electronically signed by: HOMER BELLAMY MD Normal [facility] BASIC METABOLIC PANELon 09-0 Anion gap 3 molar conc 8 mmol/L Low 10 - 20 [facility] Comment on above: Performed By: #### L IPID ####[id number] [place] [address] Calcium mass conc 8.1 mg/dL Low 8.6 - 10.3 [facility] Comment on above: Performed By: #### L IPID ####[address] [place] [address] Chloride molar conc 108 mmol/L High 98 - 107 [facility] Comment on above: Performed By: #### L IPID ####[address] [place] [address] Creatinine mass conc 0.71 mg/dL Normal 0.50 - 1.05 [facility] Comment on above: Performed By: #### L IPID ####[id number] [place] [address] GFR- AM. >60 Normal >60 [facility] Comment on above: Result Comment: CALC ULATIONS OF ESTIMATED GFR ARE PERFORMED USING THE MDRD STUDY EQUATION FOR THE IDMS-TRACEABLE CREATININE METHODS. CLIN CHEM 2007;53:766-72 Performed By: #### L IPID ####[id number] [place] [address] GFR-NON AM. >60 Normal >60 [facility] Comment on above: Performed By: #### L IPID ####[facility] [place] [address] Glucose mass conc 106 mg/dL High 74 - 99 [facility] Comment on above: Performed By: #### L IPID ####[facility] [place] [address] HCO3 molar conc (Bld) 26 mmol/L Normal 21 - 32 [facility] Comment on above: Performed By: #### L IPID ####[address] [address] Potassium molar conc 3.3 mmol/L Low 3.5 - 5.3 [facility] Comment on above: Performed By: #### L IPID ####[address] [address] Sodium molar conc 139 mmol/L Normal 136 - 145 [facility] Comment on above: Performed By: #### L IPID ####[address] [address] Urea nitrogen mass conc 7 mg/dL Normal 6 - 23 [facility] Comment on above: Performed By: #### L IPID ####[address] [place] [address] CBCon 10-11-2017 Erythrocyte distribution width Auto Ratio (RBC) 16.0 % High 11.5 - 14.5 [facility] Comment on above: Performed By: #### L IPID ####[address] [place] [address] Hematocrit Auto Volume Fraction (Bld) 31.4 % Low 36.0 - 46.0 [facility] Comment on above: Performed By: #### L IPID ####[facility] [place] [address] Hemoglobin mass conc (Bld) 9.9 g/dL Low 12.0 - 16.0 [facility] Comment on above: Performed By: #### L IPID ####[address] [address] MCHC Auto mass conc (RBC) 31.5 g/dL Low 32.0 - 36.0 [facility] Comment on above: Performed By: #### L IPID ####[facility] [place] [address] MCV Auto Entitic volume (RBC) 97 fL Normal 80 - 100 [facility] Comment on above: Performed By: #### L IPID ####[facility] [place] [address] Platelets Auto #/vol (Bld) 253 10*3/uL Normal 150 - 450 [facility] Comment on above: Performed By: #### L IPID ####[facility] [place] [address] RBC Auto #/vol (Bld) 3.23 x10E12/L Low 4.00 - 5.20 [facility] Comment on above: Performed By: #### L IPID ####[facility] [place] [address] WBC Auto #/vol (Bld) 5.5 10*3/uL Normal 4.4 - 11.3 [facility] Comment on above: Performed By: #### L IPID ####[id number] [place] [address] Daily Progress Note-Medicine on 10-11-2017 Protein mass conc Service: Medicine Rick bjective Data:KATHERINE JUDGE is a 82 year old Female who is Hospital Day # 3. Patientassessed at bedside; sitting up in a chair. slightly confused today; complainedof not sleeping. She is aware she is seeing things that are not there. Objective Data: Objective Information:T [id number]/949 9%Date/Time10/11 6:2 6: 6:2892 6:289 6:28Range(36.4C - 36.6C ) (64 - [...] Injectable Flush: 10 mL IntraVenous Flush Every 70Tvntb56. Vancomycin Oral Liquid: 250 mg Oral Every 6 Hours PRN Medications ---- 1. Acetaminophen: 650 mg Oral Every 4 Hours2. diphenhydrAMINE 2% Topical: 1 application(s) Topical 4 Times a Day3. Heparin Flush 10 unit/ mL PF Injectable: 5 mL IntraVenous Flush Every 93Xsgqs7. Heparin Flush 10 unit/ mL PF Injectable [...] Count 3.23 LHGB 9.9 LHCT 31.4 [facility] 31.5 LPLT 253RDW-CV 16.0 H Basic [...] PICC line inserted in ED by PICC DATA STORAGE SPECIALIST Anxiety, depression- continue Wellbutrin- continue Sertraline Insomnia- hold trazadone- started ambien GERD- continue pantoprazole Neuropathy pain- hold Tizandine- continue Neurotin for now Urinary frequency- continue oxybutynin Impaired Funcitonal Mobility- PT/OT evaluation pending DVT pps- Ambulation, Lovenox held due to anemia Disposition: [facility] med/surg. Home soon. Electronic Signatures:Alex Tillman (POLICYHOLDER INFORMATION CLERK-DATA STORAGE SPECIALIST) (Signed 11-Oct-2017 18:54)Authored: Service, Subjective Data, Objective Data, Assessment and Plan,Signature/Cosignature/A ttestation Last Updated: 11-Oct-2017 18:54 by Alex Tillman (POLICYHOLDER INFORMATION CLERK-DATA STORAGE SPECIALIST) Normal [facility] Daily Progress Note-Samarao n 10-11-2017 Protein mass conc Service: Surgery Sub jective Data:KATHERINE JUDGE is a 82 year old Female who is Hospital Day # 3. HALLUCINATING / NO PAIN / LESS DIARRHEA. Objective Data: Objective Information:T [id number]/949 9%Date/Time10/11 6:289/2 6:2892 6:289/2 6:289/2 6:28Range(36.4C - [...] Updated: 11-Oct-2017 08:30 by Manny Arana) Normal [facility] MAGNESIUMon 10-11-2017 Magnesium mass conc 1.54 mg/dL Low 1.60 - 2.40 [facility] Comment on above: Performed By: #### V TDOH ####[facility] [place] [address] BASIC METABOLIC PANELon Anion gap 3 molar conc 10 mmol/L Normal 10 - 20 [facility] Comment on above: Performed By: #### L IPID ####[facility] [place] [address] Calcium mass conc 8.2 mg/dL Low 8.6 - 10.3 [facility] Comment on above: Performed By: #### L IPID ####[facility] [place] [address] Chloride molar conc 104 mmol/L Normal 98 - 107 [facility] Comment on above: Performed By: #### L IPID ####[facility] [place] [address] Creatinine mass conc 1.14 mg/dL High 0.50 - 1.05 [facility] Comment on above: Performed By: #### L IPID ####[facility] [place] [address] GFR- AM. 56 mL/min/1.73m2 Abnormal >60 [facility] Comment on above: Result Comment: CALC ULATIONS OF ESTIMATED GFR ARE PERFORMED USING THE MDRD STUDY EQUATION FOR THE IDMS-TRACEABLE CREATININE METHODS. CLIN CHEM 2007;53:766-72 Performed By: #### L IPID ####[address] [address] GFR-NON AM. 46 mL/min/1.73m2 Abnormal >60 [facility] Comment on above: Performed By: #### L IPID ####[address] [address] Glucose mass conc 102 mg/dL High 74 - 99 [facility] Comment on above: Performed By: #### L IPID ####[address] [address] HCO3 molar conc (Bld) 27 mmol/L Normal 21 - 32 [facility] Comment on above: Performed By: #### L IPID ####[address] [address] Potassium molar conc 3.5 mmol/L Normal 3.5 - 5.3 [facility] Comment on above: Performed By: #### L IPID ####[address] [address] Sodium molar conc 137 mmol/L Normal 136 - 145 [facility] Comment on above: Performed By: #### L IPID ####[address] [address] Urea nitrogen mass conc 18 mg/dL Normal 6 - 23 [facility] Comment on above: Performed By: #### L IPID ####[address] [address] CBC AND DIFFERENTIALon 10-10 % AUTOMATED IMMATURE GRAN 0.3 % Normal 0.0 - 0.9 [facility] Comment on above: Result Comment: Perc ent differential counts (%) should be interpreted in the context of the absolute cell counts (cells/L). Performed By: #### L IPID ####[address] [address] % NEUTROPHIL 69.7 % Normal 40.0 - 80.0 [facility] Comment on above: Performed By: #### L IPID ####[address] [place] [address] Basophils/100 WBC Auto (Bld) 0.04 x10E9/L Normal 0.00 - 0.10 [facility] Comment on above: Performed By: #### L IPID ####[address] [place] [address] Basophils/100 WBC Auto (Bld) 0.5 % Normal 0.0 - 2.0 [facility] Comment on above: Performed By: #### L IPID ####[address] [address] Eosinophils Auto #/vol (Bld) 0.15 10*3/uL Normal 0.00 - 0.40 [facility] Comment on above: Performed By: #### L IPID ####[address] [address] Eosinophils/100 WBC Auto (Bld) 2.0 % Normal 0.0 - 6.0 [facility] Comment on above: Performed By: #### L IPID ####[address] [address] Erythrocyte distribution width Auto Ratio (RBC) 15.9 % High 11.5 - 14.5 [facility] Comment on above: Performed By: #### L IPID ####[address] [address] Hematocrit Auto Volume Fraction (Bld) 29.3 % Low 36.0 - 46.0 [facility] Comment on above: Performed By: #### L IPID ####[address] [address] Hemoglobin mass conc (Bld) 9.4 g/dL Low 12.0 - 16.0 [facility] Comment on above: Performed By: #### L IPID ####[address] [address] Lymphocytes Auto #/vol (Bld) 1.63 10*3/uL Normal 0.80 - 3.00 [facility] Comment on above: Performed By: #### L IPID ####[address] [address] Lymphocytes/100 WBC Auto (Bld) 22.0 % Normal 13.0 - 44.0 [facility] Comment on above: Performed By: #### L IPID ####[address] [place] [address] MCHC Auto mass conc (RBC) 32.1 g/dL Normal 32.0 - 36.0 [facility] Comment on above: Performed By: #### L IPID ####[address] [address] MCV Auto Entitic volume (RBC) 97 fL Normal 80 - 100 [facility] Comment on above: Performed By: #### L IPID ####[address] [address] Monocytes Auto #/vol (Bld) 0.41 10*3/uL Normal 0.05 - 0.80 [facility] Comment on above: Performed By: #### L IPID ####[address] [address] Monocytes/100 WBC Auto (Bld) 5.5 % Normal 2.0 - 10.0 [facility] Comment on above: Performed By: #### L IPID ####[address] [address] Neutrophils Auto #/vol (Bld) 5.16 10*3/uL Normal 1.60 - 5.50 [facility] Comment on above: Performed By: #### L IPID ####[address] [address] Platelets Auto #/vol (Bld) 246 10*3/uL Normal 150 - 450 [facility] Comment on above: Performed By: #### L IPID ####[address] [address] RBC Auto #/vol (Bld) 3.02 x10E12/L Low 4.00 - 5.20 [facility] Comment on above: Performed By: #### L IPID ####[address] [address] WBC Auto #/vol (Bld) 7.4 10*3/uL Normal 4.4 - 11.3 [facility] Comment on above: Performed By: #### L IPID ####[facility] [place] [address] CLOST.DIFF.TOXIN,PCRon 10-10 CLOST.DIFF.TOXIN,PCR DETECTED Abnormal Not Detected [facility] Comment on above: Order Comment: [...] 10/10/2017 03:35 Performed By: #### L IPID ####[address] [place] [address] Consult-Infectious Diseaseon 10-10-2017 Consult-Infectious Disease Service:Service: Infectious [...] bowel obstruction (disorder):Acute bowel obstruction: Onset Date: 60-Wvv-7564Dyxjvnfrcgb abdominal pain (finding):Acute bowel obstruction:Acute bowel obstruction: [...] Confusion? Restoril: Confusion Objective: Objective Information: T BMXVHbZ5Bjepf42.13022098/749 9%Date/Time10/10 14: 14: 14:259 14: 14:25Range(36.4C - 36.7C ) (63 - [...] Injectable Flush: 10 mL IntraVenous Flush Every 64Lainn2. Sodium Chloride 0.9% Injectable Flush PRN: 10 [...] Complete Blood Count + Differential Trending View [id number]-Afl-4354 03:32:00 09-Oct-2017 15:37:00White Blood Cell Count7.4 7.0Red Blood Cell Count3.02 L 3.22 LHGB9.4 L 10.0 LHCT29.3 L 32.1 LMCV97 302XRTL98.1 31.2 HXLM713 285RDW-CV15.9 H 16.0 HNeutrophil %69.7 69.0Immature Granulocytes %0.3 0.3Lymphocyte %22.0 23.8Monocyte %5.5 6.1Eosinophil %2.0 0.4Basophil %0.5 0.4Neutrophil Count5.16 4.85Lymphocyte Count1.63 1.67Monocyte Count0.41 0.43Eosinophil Count0.15 0.03Basophil Count0.04 0.03 Basic Metabolic Panel Trending View Plryvk11-Ukn-9879 03:32:00 09-Oct-2017 15:37:00Glucose, Fhbou599 H 89CU849 135 LK3.5 4.5MC969 99Bicarbonate, Serum27 27Anion Gap, Serum10 19LPE81 27 HCREAT1.14 H 1.73 HGFR-Non Wirnhpky95 A 28 AGFR- Urtdytgz20 A 34 ACalcium, Serum8.2 L 9.5 Lactate, Level Trending View Byiioq98-Vhr-7929 17:49:00 09-Oct-2017 15:37:00Lactate, Level0.6 2.2 H Urinalysis 09-Oct-2017 17:44:00 ResultValueColor, Urine YELLOW Reference Range: STRAW,YELLOWAppearance, Urine HAZYSpecific [place], Urine 1.009pH, Urine 5.0Protein, Urine NEGATIVEGlucose, Urine [...] Last Updated: 10-Oct-2017 21:36 by Clif Eid) [facility] Consult-Surgeryon 10-10-2017 Consult-Surgery Service:Service: Leonora arianna Consult:Consult [...] bowel obstruction (disorder):Acute bowel obstruction: Onset Date: 68-Dlr-6527Tioon bowel obstruction:Acute bowel obstruction:Generalized abdominal pain (finding): [...] Confusion? Restoril: Confusion Objective: Objective Information: T IFZCRyF1Duzvw97.48427362/739 5%Date/Time10/10 7: 7: 7: 7: 7:17Range(36.5C - [...] Updated: 11-Oct-2017 08:19 by Manny Arana) Normal [facility] History and Physicalon 10-10 History [...] hypokalemia,hypomagnesemia and colitis was admitted from the [place] emergency room due tocolitis. Patient has had multiple abdominal surgeries in the past. She wasrecently discharged from the hospital on 09/01/17 and then a week later formanagement of small bowel obstruction and AMS. 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 Past surgical history: Multiple abdominal surgeries Social history: Patient never smoked. She is retired. No illicit drug use.She is and has one child. Family history significant for diabetes Admitted to [facility] med/surg with consults to surgery and ID [...] oral tablet: 1 tab(s) orally once a vjoZ-E-Ie-F-SatiZANidine 2 mg oral tablet: 1 tab(s) orally [...] and are negative Objective: Objective Information: T WRUDPhV4Lwwih83.44013535/739 5%Date/Time10/10 7: 7: 7: 7: 7:17Range(36.5C - 36.7C ) (63 - 77 ) (16 - 18 ) (69 - 170 )/ (38 - 80 ) (91%- 95% ) Weights8 21:07: Weight in kg (Weight (kg)) 41.6831 21:07: Weight in lbs ((lbs)) 91.78/31 21:07: [...] Injectable Flush: 10 mL IntraVenous Flush Every 72Kpjag17. Vancomycin Oral Liquid: 250 mg Oral Every 6 Hours PRN Medications ---- 1. Acetaminophen: 650 mg Oral Every 4 Hours2. Heparin Flush 10 unit/ mL PF Injectable: 5 mL IntraVenous Flush Every 33Qibcq1. Heparin Flush 10 unit/ mL PF Injectable PRN: 5 mL IntraVenous FlushAccording to Flush Policy4. Oxybutynin: 5 mg Oral 3 Times a Day5. Sodium Chloride 0.9% Injectable Flush PRN: 10 mL IntraVenous FlushAccording to Flush Policy6. Witch [place] Topical: 1 application(s) Topical 2 Times a Day Currently Suspended Medications ---- 1. Enoxaparin SubCutaneous: 30 mg SubCutaneous Every 24 Hours2. Furosemide: 20 mg Oral Daily3. tiZANidine: 2 mg Oral Every 24 Hours4. traZODone: 50 mg Oral 3 Times a Day Recent Lab Results: Results: I have reviewed these laboratory results: Complete Blood Count + Differential Trending View Pdlbiy18-Uac-4178 03:32:00 09-Oct-2017 15:37:00 05-Oct-2017 15:23:00White Blood Cell Count7.4 7.0 6.9Red Blood Cell Count3.02 L 3.22 L 3.58 LHGB9.4 L 10.0 L 11.0 LHCT29.3 L 32.1 L 35.7 LMCV97 100 948EBCT46.1 31.2 L 30.8 OIQH482 285 397RDW-CV15.9 H 16.0 H 16.2 HNeutrophil %69.7 69.0 54.6Immature Granulocytes %0.3 0.3 0.3Lymphocyte %22.0 23.8 35.8Monocyte %5.5 6.1 7.0Eosinophil %2.0 0.4 1.3Basophil %0.5 0.4 1.0Neutrophil Count5.16 4.85 3.75Lymphocyte Count1.63 1.67 2.46Monocyte Count0.41 0.43 0.48Eosinophil Count0.15 0.03 0.09Basophil Count0.04 0.03 0.07 Basic Metabolic Panel Trending View Eakhzl35-Xnx-0942 03:32:00 09-Oct-2017 15:37:00Glucose, Eibni227 H 51TO680 135 LK3.5 4.3IV866 99Bicarbonate, Serum27 27Anion Gap, Serum10 81DLR64 27 HCREAT1.14 H 1.73 HGFR-Non Zdrongba64 A 28 AGFR- Jpazpytj69 A 34 ACalcium, Serum8.2 L 9.5 Lactate, Level Trending View Jvmwya39-Vra-6006 17:49:00 09-Oct-2017 15:37:00Lactate, Level0.6 2.2 H Urinalysis 09-Oct-2017 17:44:00 ResultValueColor, Urine YELLOW Reference Range: STRAW,YELLOWAppearance, Urine HAZYSpecific [place], Urine 1.009pH, Urine 5.0Protein, Urine NEGATIVEGlucose, Urine [...] PICC line inserted in ED by PICC DATA STORAGE SPECIALIST Anxiety, depression- continue Wellbutrin, Sertraline Insomnia- continue to hold Trazadone Gerd- continue PPI Neuropathy pain- hold Tizandine- continue Neurotin for now Urinary frequency, continue home medication DVT Ambulation, Lovenox held due to anemia Disposition: [facility] med/surg. Home soon. Signatures/Attestation/Certi fication:Comments/ Additional FindingsPatient seen personally by me in collaboration with LICENSED SALES PRODUCER. Agree with POC asdocumented above. Attending Provider [...] within 96 hours after admission to the [facility]. Electronic Signatures:Aria Gandhi) (Signed 10-Oct-2017 13:46)Authored: Signatures/Attestation/Certi ficationCo-Signer: History of Present Illness, Comorbidities, Allergies, MedicationsPrior to Admission, Review of Systems, Objective, Assessment and Plan,Signatures/Attestation/ CertificationAlex Mayer (POLICYHOLDER INFORMATION CLERK-DATA STORAGE SPECIALIST) (Signed 10-Oct-2017 10:21)Authored: History of Present Illness, Comorbidities, Allergies, MedicationsPrior to Admission, Review of Systems, Objective, Assessment and Plan,Signatures/Attestation/ Certification Last Updated: 10-Oct-2017 13:46 by Aria Gandhi) Normal [facility] ALCOHOLon 10-09-2017 Ethanol mass conc mg/dL Normal [facility] Comment on above: Result Comment: FOR MEDICAL USE ONLY..REF VALUES <10 Performed By: #### L IPID ####[facility] [place] [address] AMYLASEon 10-09-2017 Amylase enzyme act/vol 58 U/L Normal 29 - 103 [facility] Comment on above: Performed By: #### L IPID ####[facility] [place] [address] Admission Risk Screen - Adul ton 10-09-2017 [...] DNR-CC Availabilityplaced in chart? DNR-CC Placed on Mzngy09-Qoi-8692 Falls Screen:Type of AssessmentadmissionModerate Risk Factorspatient care [...] Learning Preferencesindividual instruction? Cultural Considerationsnone? Developmental Considerationsnone? Baptist Considerationsnone Learning Assessment (Other Learner):? Other learner [...] Spiritual Screen:? Are there any cultural, spiritual, jain practices/values/needs that areimportant for us to know?no? Do you want a visit/item from Pastoral Care?no? Would you like your Blankmaker/Mining Detail Draftsperson notified?no CAGE:Is this an injured patient at a Trauma Center ([facility] [place]): no Vaccinations:Vaccination - Influenza Vaccination Screen:? Is [...] Gladys Jordan (RN) References:1. Data Referenced From Triage - ED 10/09/2017 1:22 PM Normal [facility] BASIC METABOLIC PANELon 08-3 1-2018 Anion gap 3 molar conc 13 mmol/L Normal 10 - 20 [facility] Comment on above: Performed By: #### L IPID ####[address] [place] [address] Calcium mass conc 9.5 mg/dL Normal 8.6 - 10.3 [facility] Comment on above: Performed By: #### L IPID ####[address] [address] Chloride molar conc 99 mmol/L Normal 98 - 107 [facility] Comment on above: Performed By: #### L IPID ####[address] [address] Creatinine mass conc 1.73 mg/dL High 0.50 - 1.05 [facility] Comment on above: Performed By: #### L IPID ####[address] [address] GFR- AM. 34 mL/min/1.73m2 Abnormal >60 [facility] Comment on above: Result Comment: CALC ULATIONS OF ESTIMATED GFR ARE PERFORMED USING THE MDRD STUDY EQUATION FOR THE IDMS-TRACEABLE CREATININE METHODS. CLIN CHEM 2007;53:766-72 Performed By: #### L IPID ####[address] [address] GFR-NON AM. 28 mL/min/1.73m2 Abnormal >60 [facility] Comment on above: Performed By: #### L IPID ####[address] [place] [address] Glucose mass conc 85 mg/dL Normal 74 - 99 [facility] Comment on above: Performed By: #### L IPID ####[address] [place] [address] HCO3 molar conc (Bld) 27 mmol/L Normal 21 - 32 [facility] Comment on above: Performed By: #### L IPID ####[address] [place] [address] Potassium molar conc 4.1 mmol/L Normal 3.5 - 5.3 [facility] Comment on above: Performed By: #### L IPID ####[facility] [place] [address] Sodium molar conc 135 mmol/L Low 136 - 145 [facility] Comment on above: Performed By: #### L IPID ####[facility] [place] [address] Urea nitrogen mass conc 27 mg/dL High 6 - 23 [facility] Comment on above: Performed By: #### L IPID ####[facility] [place] [address] BLOOD CULTURE, BACTERIALon 0 10-09-2017 BLOOD CULTURE, BACTERIAL PATIENT: KATHERINE JUDGE LOCATION: [address]#: [id number] : [birth year] AGE: SEX: F ORDERED BY: LOTUS VANCE: Blood COLLECTED: 10/09/17 15:37ANTIBIOTICS AT ESDRAS.: RECEIVED : 10/09/17 22:30SITE: PERIPHERAL R E S U L T S BLOOD CULTURE, BACTERIAL FINAL 10/14/17 23:42 No Growth at 1 days No Growth at 2 days No Growth at 3 days No Growth at 4 days NO GROWTH - FINAL REPORT Normal [facility] Comment on above: Performed By: #### V TDOH ####[facility] [place] [address] BLOOD CULTURE, BACTERIAL TEST BLOOD CULTURE, BACTERIAL WAS CANCELLED, 10/16/2017 16:10 DUPLICATE ORDER.PATIENT: KATHERINE JUDGE LOCATION: [address]#: [id number] : [birth year] AGE: SEX: F ORDERED BY: LOTUS VANCE: Blood COLLECTED: 10/09/17 15:30ANTIBIOTICS AT ESDRAS.: RECEIVED : SITE: PERIPHERAL R E S U L T S BLOOD CULTURE, BACTERIAL CANCELLED 10/16/17 16:10 Normal [facility] Comment on above: Performed By: #### V TDOH ####[facility] [place] [address] CBC AND DIFFERENTIALon 10-09 % AUTOMATED IMMATURE GRAN 0.3 % Normal 0.0 - 0.9 [facility] Comment on above: Result Comment: Perc ent differential counts (%) should be interpreted in the context of the absolute cell counts (cells/L). Performed By: #### L IPID ####[address] [address] % NEUTROPHIL 69.0 % Normal 40.0 - 80.0 [facility] Comment on above: Performed By: #### L IPID ####[address] [address] Basophils/100 WBC Auto (Bld) 0.4 % Normal 0.0 - 2.0 [facility] Comment on above: Performed By: #### L IPID ####[address] [address] Basophils/100 WBC Auto (Bld) 0.03 x10E9/L Normal 0.00 - 0.10 [facility] Comment on above: Performed By: #### L IPID ####[address] [address] Eosinophils Auto #/vol (Bld) 0.03 10*3/uL Normal 0.00 - 0.40 [facility] Comment on above: Performed By: #### L IPID ####[address] [address] Eosinophils/100 WBC Auto (Bld) 0.4 % Normal 0.0 - 6.0 [facility] Comment on above: Performed By: #### L IPID ####[address] [address] Erythrocyte distribution width Auto Ratio (RBC) 16.0 % High 11.5 - 14.5 [facility] Comment on above: Performed By: #### L IPID ####[address] [address] Hematocrit Auto Volume Fraction (Bld) 32.1 % Low 36.0 - 46.0 [facility] Comment on above: Performed By: #### L IPID ####[address] [address] Hemoglobin mass conc (Bld) 10.0 g/dL Low 12.0 - 16.0 [facility] Comment on above: Performed By: #### L IPID ####[address] [address] Lymphocytes Auto #/vol (Bld) 1.67 10*3/uL Normal 0.80 - 3.00 [facility] Comment on above: Performed By: #### L IPID ####[address] [address] Lymphocytes/100 WBC Auto (Bld) 23.8 % Normal 13.0 - 44.0 [facility] Comment on above: Performed By: #### L IPID ####[address] [address] MCHC Auto mass conc (RBC) 31.2 g/dL Low 32.0 - 36.0 [facility] Comment on above: Performed By: #### L IPID ####[address] [address] MCV Auto Entitic volume (RBC) 100 fL Normal 80 - 100 [facility] Comment on above: Performed By: #### L IPID ####[address] [address] Monocytes Auto #/vol (Bld) 0.43 10*3/uL Normal 0.05 - 0.80 [facility] Comment on above: Performed By: #### L IPID ####[address] [address] Monocytes/100 WBC Auto (Bld) 6.1 % Normal 2.0 - 10.0 [facility] Comment on above: Performed By: #### L IPID ####[address] [address] Neutrophils Auto #/vol (Bld) 4.85 10*3/uL Normal 1.60 - 5.50 [facility] Comment on above: Performed By: #### L IPID ####[address] [address] Platelets Auto #/vol (Bld) 285 10*3/uL Normal 150 - 450 [facility] Comment on above: Performed By: #### L IPID ####[facility] [place] [address] RBC Auto #/vol (Bld) 3.22 x10E12/L Low 4.00 - 5.20 [facility] Comment on above: Performed By: #### L IPID ####[facility] [place] [address] WBC Auto #/vol (Bld) 7.0 10*3/uL Normal 4.4 - 11.3 [facility] Comment on above: Performed By: #### L IPID ####[facility] [place] [address] CHEST 1 VIEWon 10-09-2017 CHEST 1 VIEW [...] fractures.Electronically signed by: THANH COLLADO MD Normal [facility] CT ABDOMEN AND PELVIS WO CON TRASTon [...] L3 as well as severe compression of [id number] bodies noted. Degenerative disc space narrowing of [...] signed by: LEIGH ANN VALLADARES MD Normal [facility] HEPATIC FUNCTION PANELon Albumin mass conc 3.1 g/dL Low 3.4 - 5.0 [facility] Comment on above: Performed By: #### L IPID ####[address] [address] ALP enzyme act/vol 67 U/L Normal 33 - 136 [facility] Comment on above: Performed By: #### L IPID ####[address] [address] ALT enzyme act/vol 9 U/L Normal 7 - 45 [facility] Comment on above: Result Comment: Daniel ents treated with Sulfasalazine may generate falsely decreased results for ALT. Performed By: #### L IPID ####[address] [place] [address] AST enzyme act/vol 19 U/L Normal 9 - 39 [facility] Comment on above: Performed By: #### L IPID ####[address] [place] [address] Bilirubin mass conc 0.4 mg/dL Normal 0.0 - 1.2 [facility] Comment on above: Performed By: #### L IPID ####[address] [place] [address] Bilirubin.direct mass conc 0.1 mg/dL Normal 0.0 - 0.3 [facility] Comment on above: Performed By: #### L IPID ####[address] [place] [address] Protein mass conc 6.4 g/dL Normal 6.4 - 8.2 [facility] Comment on above: Performed By: #### L IPID ####[address] [place] [address] LACTATEon 10-09-2017 Lactate molar conc 0.6 mmol/L Normal 0.4 - 2.0 [facility] Comment on above: Result Comment: Hali puncture immediately after or during the administration of Metamizole may lead to falsely low results. Testing should be performed immediately prior to Metamizole dosing. Performed By: #### L IPID ####[address] [address] Lactate molar conc 2.2 mmol/L High 0.4 - 2.0 [facility] Comment on above: Result Comment: Hali puncture immediately after or during the administration of Metamizole may lead to falsely low results. Testing should be performed immediately prior to Metamizole dosing. Performed By: #### L IPID ####[address] [address] LIPASEon 10-09-2017 Lipase enzyme act/vol 50 U/L Normal 9 - 82 [facility] Comment on above: Result Comment: Hali puncture immediately after or during the administration of Metamizole may lead to falsely low results. Testing should be performed immediately prior to Metamizole dosing. Performed By: #### L IPID ####[address] [address] OCCULT BLOOD TEST,STOOLon OCCULT BLOOD,STOOL Positive Abnormal Negative [facility] Comment on above: Performed By: #### L IPID ####[address] [address] PT/INRon 10-09-2017 INR Coag RelTime (PPP) 1.1 {INR} Normal 0.9 - 1.1 [facility] Comment on above: Performed By: #### L IPID ####[address] [address] Prothrombin time (PT) Coag time (PPP) 11.5 s Normal 9.8 - 12.7 [facility] Comment on above: Performed By: #### L IPID ####[facility] [place] [address] Patient Profile - Adult v2on 10-09-2017 Protein mass conc Profile:Initial Info :How to be AddressedAliceSpoken Language PreferredEnglish (1)Source of InformationpatientAre you currently using the Personal Electronic Health Record or MYCAREnoAre you interested in learning more about [facility] for the management of yourhealthdeclinedStated Reason for Admissiondizziness weakness low BPPrimary Contact Name and [phone] brother Nancy VelozLimitations on Visitors/Phone CallsnoneTemporary Family Living Arrangements (While Hospitalized)none neededArrived Fromemergency departmentWas Admitted To in Past [facility] nursing facilityEmployment StatusdisabledCurrent or Previous ServicenonePatient [...] - Adult v2 09/05/2017 6:30 AM Normal [facility] Provider Note - ED Care [place] sitionon [...] this a critically ill patient?: no Electronic Signatures:Specner Hardy) (Signed 09-Oct-2017 19:35)Authored: ED Care Transition Last Updated: 09-Oct-2017 19:35 by Spencer Hardy) Normal [facility] Provider Note - ED v2on 08-3 1-2018 Protein mass conc Provider Note - ED v 2:Chart Review:ED NOTESED NOTES: Patient states she was hospitalized due to GI tract required resection of thebowel and subsequently went to care home for rehabilitation, after dischargefrom the care home rehabilitation treatment patient was at home was [...] oral tabletInstructions: 1 tab(s) orally once a wbsP-U-Vz-F-Sa Drug Name: tiZANidine 2 mg oral tabletInstructions: [...] difficile toxin (C-Diff) Additional Notes:came with ( [facility] Status:Active Description:Methicillin-Resi stant Staph Aureus (MRSA) Additional Notes:sputum Status:Active Description:Clostridium difficile toxin (C-Diff) Status:Active Other Description:Narcotic Use Status:Active Description:Family spokesperson Additional Notes: CARLOS [phone] BROTHER RYLAND [phone] Status:Active Past Medical History Description:colitis Status:Active Description:mitral [...] SIGNS VITAL SIGNS: T PRBP SpO2O2(LPM) %FiO2 Kkfkhd62-Vpp-8314 13:22:00-36.3852616/38 93 room air, no respiratorysupport EKG INTERPRETATION:EKG [...] Triage - ED 10/09/2017 1:22 PM Normal [facility] TROPONIN Ion 10-09-2017 Troponin I.cardiac mass conc ng/mL Normal 0.00 - 0.03 [facility] Comment on above: Result Comment: [...] testing is performed using differenttesting methodology at [facility] than at [facility]. Direct result comparisons should onlybe made within the same method. Performed By: #### L IPID ####[facility] [place] [address] Triage - EDon 10-09-2017 Triage - ED [...] History Last Updated: 09-Oct-2017 13:24 by Nelia Pierre (RN) Normal [facility] URINALYSISon 10-09-2017 APPEARANCE HAZY Normal CLEAR [facility] Comment on above: Performed By: #### L IPID ####[address] [place] [address] BILIRUBIN Negative Normal NEGATIVE [facility] Comment on above: Performed By: #### L IPID ####[address] [place] [address] BLOOD Negative Normal NEGATIVE [facility] Comment on above: Performed By: #### L IPID ####[address] [place] [address] COLOR YELLOW Normal STRAW,YELL OW [facility] Comment on above: Performed By: #### L IPID ####[address] [place] [address] GLUCOSE Negative Normal NEGATIVE [facility] Comment on above: Performed By: #### L IPID ####[address] [place] [address] KETONES Negative Normal NEGATIVE [facility] Comment on above: Performed By: #### L IPID ####[address] [place] [address] LEUKOCYTE ESTERASE Negative Normal NEGATIVE [facility] Comment on above: Performed By: #### L IPID ####[address] [place] [address] NITRITE Negative Normal NEGATIVE [facility] Comment on above: Performed By: #### L IPID ####[address] [place] [address] pH 5.0 Normal 5.0 - 8.0 [facility] Comment on above: Performed By: #### L IPID ####[address] [place] [address] Protein mass conc Negative Normal NEGATIVE [facility] Comment on above: Performed By: #### L IPID ####[address] [place] [address] SPECIFIC GRAVITY 1.009 Normal 1.005 - 1.035 [facility] Comment on above: Performed By: #### L IPID ####[facility] [place] [address] UROBILINOGEN <2.0 Normal 0.0 - 1.9 [facility] Comment on above: Performed By: #### L IPID ####[address] [place] [address] URINE CULTURE,BACTERIALon URINE CULTURE,BACTERIAL PATIENT: KATHERINE JUDGE LOCATION: [address]#: [id number] : [birth year] AGE: SEX: F ORDERED BY: LOTUS VANCE: URINE COLLECTED: 10/09/17 17:44ANTIBIOTICS AT ESDRAS.: RECEIVED : 10/10/17 09:59SITE: Straight Cath R E S U L T S URINE CULTURE,BACTERIAL FINAL 10/11/17 09:09 NO GROWTH Normal [facility] Comment on above: Performed By: #### V TDOH ####[facility] [place] [address] CBC AND DIFFERENTIALon 10-05 % AUTOMATED IMMATURE GRAN 0.3 % Normal 0.0 - 0.9 [facility] Comment on above: Result Comment: Perc ent differential counts (%) should be interpreted in the context of the absolute cell counts (cells/L). Performed By: #### L IPID ####[facility] [place] [address] % NEUTROPHIL 54.6 % Normal 40.0 - 80.0 [facility] Comment on above: Performed By: #### L IPID ####[address] [place] [address] Basophils/100 WBC Auto (Bld) 1.0 % Normal 0.0 - 2.0 [facility] Comment on above: Performed By: #### L IPID ####[address] [address] Basophils/100 WBC Auto (Bld) 0.07 x10E9/L Normal 0.00 - 0.10 [facility] Comment on above: Performed By: #### L IPID ####[address] [address] Eosinophils Auto #/vol (Bld) 0.09 10*3/uL Normal 0.00 - 0.40 [facility] Comment on above: Performed By: #### L IPID ####[address] [address] Eosinophils/100 WBC Auto (Bld) 1.3 % Normal 0.0 - 6.0 [facility] Comment on above: Performed By: #### L IPID ####[address] [address] Erythrocyte distribution width Auto Ratio (RBC) 16.2 % High 11.5 - 14.5 [facility] Comment on above: Performed By: #### L IPID ####[address] [address] Hematocrit Auto Volume Fraction (Bld) 35.7 % Low 36.0 - 46.0 [facility] Comment on above: Performed By: #### L IPID ####[address] [address] Hemoglobin mass conc (Bld) 11.0 g/dL Low 12.0 - 16.0 [facility] Comment on above: Performed By: #### L IPID ####[address] [address] Lymphocytes Auto #/vol (Bld) 2.46 10*3/uL Normal 0.80 - 3.00 [facility] Comment on above: Performed By: #### L IPID ####[address] [address] Lymphocytes/100 WBC Auto (Bld) 35.8 % Normal 13.0 - 44.0 [facility] Comment on above: Performed By: #### L IPID ####[address] [place] [address] MCHC Auto mass conc (RBC) 30.8 g/dL Low 32.0 - 36.0 [facility] Comment on above: Performed By: #### L IPID ####[address] [address] MCV Auto Entitic volume (RBC) 100 fL Normal 80 - 100 [facility] Comment on above: Performed By: #### L IPID ####[address] [address] Monocytes Auto #/vol (Bld) 0.48 10*3/uL Normal 0.05 - 0.80 [facility] Comment on above: Performed By: #### L IPID ####[address] [address] Monocytes/100 WBC Auto (Bld) 7.0 % Normal 2.0 - 10.0 [facility] Comment on above: Performed By: #### L IPID ####[address] [address] Neutrophils Auto #/vol (Bld) 3.75 10*3/uL Normal 1.60 - 5.50 [facility] Comment on above: Performed By: #### L IPID ####[address] [address] Platelets Auto #/vol (Bld) 397 10*3/uL Normal 150 - 450 [facility] Comment on above: Performed By: #### L IPID ####[address] [address] RBC Auto #/vol (Bld) 3.58 x10E12/L Low 4.00 - 5.20 [facility] Comment on above: Performed By: #### L IPID ####[address] [address] WBC Auto #/vol (Bld) 6.9 10*3/uL Normal 4.4 - 11.3 [facility] Comment on above: Performed By: #### L IPID ####[address] [address] COMPREHENSIVE PANELon 2017 Albumin mass conc 3.6 g/dL Normal 3.4 - 5.0 [facility] Comment on above: Performed By: #### L IPID ####[address] [address] ALP enzyme act/vol 73 U/L Normal 33 - 136 [facility] Comment on above: Performed By: #### L IPID ####[address] [address] ALT enzyme act/vol 8 U/L Normal 7 - 45 [facility] Comment on above: Result Comment: Daniel ents treated with Sulfasalazine may generate falsely decreased results for ALT. Performed By: #### L IPID ####[address] [address] Anion gap 3 molar conc 16 mmol/L Normal 10 - 20 [facility] Comment on above: Performed By: #### L IPID ####[address] [address] AST enzyme act/vol 16 U/L Normal 9 - 39 [facility] Comment on above: Performed By: #### L IPID ####[address] [address] Bilirubin mass conc 0.4 mg/dL Normal 0.0 - 1.2 [facility] Comment on above: Performed By: #### L IPID ####[address] [address] Calcium mass conc 10.2 mg/dL Normal 8.6 - 10.3 [facility] Comment on above: Performed By: #### L IPID ####[address] [place] [address] Chloride molar conc 101 mmol/L Normal 98 - 107 [facility] Comment on above: Performed By: #### L IPID ####[address] [address] Creatinine mass conc 1.36 mg/dL High 0.50 - 1.05 [facility] Comment on above: Performed By: #### L IPID ####[address] [address] GFR- AM. 45 mL/min/1.73m2 Abnormal >60 [facility] Comment on above: Result Comment: CALC ULATIONS OF ESTIMATED GFR ARE PERFORMED USING THE MDRD STUDY EQUATION FOR THE IDMS-TRACEABLE CREATININE METHODS. CLIN CHEM 2007;53:766-72 Performed By: #### L IPID ####[address] [place] [address] GFR-NON AM. 37 mL/min/1.73m2 Abnormal >60 [facility] Comment on above: Performed By: #### L IPID ####[address] [place] [address] Glucose mass conc 89 mg/dL Normal 74 - 99 [facility] Comment on above: Performed By: #### L IPID ####[address] [address] HCO3 molar conc (Bld) 25 mmol/L Normal 21 - 32 [facility] Comment on above: Performed By: #### L IPID ####[address] [address] Potassium molar conc 5.8 mmol/L High 3.5 - 5.3 [facility] Comment on above: Performed By: #### L IPID ####[address] [place] [address] Protein mass conc 7.5 g/dL Normal 6.4 - 8.2 [facility] Comment on above: Performed By: #### L IPID ####[address] [address] Sodium molar conc 136 mmol/L Normal 136 - 145 [facility] Comment on above: Performed By: #### L IPID ####[address] [place] [address] Urea nitrogen mass conc 26 mg/dL High 6 - 23 [facility] Comment on above: Performed By: #### L IPID ####[address] [address] MAGNESIUMon 10-05-2017 Magnesium mass conc 2.24 mg/dL Normal 1.60 - 2.40 [facility] Comment on above: Performed By: #### L IPID ####[facility] [place] [address] VIT B1-THIAMINE WHOLE BLDon 09-11-2017 VIT B1-THIAMINE WHOLE BLD 133 nmol/L Normal 70-180 [facility] Comment on above: Result Comment: INTE RPRETIVE INFORMATION: Vitamin B1, Whole BloodThis assay measures the concentration of thiamine diphosphate(TDP), the primary active form of vitamin B1. Approximately 90percent of vitamin B1 present in whole blood is TDP. Thiamine andthiamine monophosphate, which comprise the remaining 10 percent,are not measured.Test developed and characteristics determined by [facility]. See Compliance Statement B: [employer]/CSPerformed by [employer],[address] [id number] trq.[employer], Noble Hernandez MD - Lab. Director Performed By: #### V TB1W ####[facility] [place] [address] Daily Progress Note-Medicine on 09-08-2017 Protein mass conc Service: Medicine Rick bjective Data:KATHERINE JUDGE is a 82 year old Female who is Hospital Day # 4. Objective Data: Objective Information:T [id number]/6193% Date/Time09/08 10: 10: 10: 10: 10:22Range(36.5C - [...] Urine STRAW Reference Range: STRAW,YELLOWAppearance, Urine CLEARSpecific [place], Urine 1.005pH, Urine 6.0Protein, Urine NEGATIVEGlucose, Urine [...] hypokalemia,hypomagnesemia and colitis was admitted from the [place] emergency room due toaltered mental status. Acute encephalopathy-clearedMRI shows multiple puntate lesion and cortical contusionseen by neurology, likely result from fall, no concern for stroke Status post unwitnessed fall-Periorbital contusion-EKG showed normal sinus rhythm with RBBB and some ST changes in the inferiorleads.-negative orthostatrics Hypokalemia: resolved CODE STATUS: DO NOT RESUSCITATE [facility] care [facility] records. Patient is back to baseline neurologically, [facility] Nutrition Diagnosis:? Nutrition DiagnosisAgree with [...] Updated: 08-Sep-2017 12:58 by Roslyn Eid) Normal [facility] Consulton 09-07-2017 Consult Service:Consult:Trish on: fall, [...] recollection offall. does have ecchymotic area left bahai.Previous records reviewed, BP was elevated 2 weeks [...] at home, independent, [place] [facility] Incomplete ROS: patient's impaired mental status [...] Confusion? Restoril: Confusion Objective: Objective Information: T [id number]/709 4%Date/Time09/07 19: 19: 19: 19: 19:58Range(36.5C - [...] Appropriate mood and behaviorSkin: Warm and dry, Tatums, Ecchymotic bruising left bahai. Medications: Medications: Continuous Medications ---- 1. Sodium [...] laboratory results: Basic Metabolic Panel Trending View Wmugge28-Fcy-0133 05:45:00 05-Sep-2017 08:30:00Glucose, Foiqv634 H 111 USP159 138K3.8 3.2 ZJE214 104Bicarbonate, Serum27 26Anion Gap, Serum12 11BUN7 16ATHRG2.57 0.75GFR-Non >60 >60GFR->60 >60Calcium, Serum8.7 8.9 Vitamin B12, Serum 06-Sep-2017 05:45:00 ResultValueVitamin B12, Serum 770 Thyroid Stimulating Hormone, Serum 06-Sep-2017 05:45:00 ResultValueThyroid Stimulating Hormone, Serum 2.11 Vitamin D (25-Hydroxy), Level 06-Sep-2017 05:45:00 ResultValueVitamin D (25-Hydroxy), Level 19 A Ammonia, Plasma 06-Sep-2017 05:45:00 ResultValueAmmonia, Plasma 19 Folate, Serum 06-Sep-2017 05:45:00 ResultValueFolate, Serum > 24.0 Troponin I, Serum Trending View Ppzeka24-Uyj-6573 11:40:00 05-Sep-2017 08:30:00 05-Sep-2017 01:49:00Troponin I, Serum0.02 0.02 0.02 Complete Blood Count 05-Sep-2017 08:30:00 ResultValueWhite Blood Cell Count 10.6Red Blood Cell Count 2.72 LHGB 8.5 LHCT 27.1 LMCV 100MCHC 31.4 LPLT 359RDW-CV 15.5 H Lactate, Level 05-Sep-2017 01:49:00 ResultValueLactate, Level 1.0 Urinalysis 05-Sep-2017 01:37:00 ResultValueColor, Urine STRAW Reference Range: STRAW,YELLOWAppearance, Urine CLEARSpecific [place], Urine 1.005pH, Urine 6.0Protein, Urine NEGATIVEGlucose, Urine [...] MRA neck. The study was interpreted at [facility]. MRA Head without Contrast [Sep 06 2017 [...] 22.2 cm2LA Area A2C: 19.3 cm2LA [place] A4C: 5.9 cmLA [place] A2C: 5.4 cmLA Volume Index: 40.5 ml/m2RA VOLUME BY A/L METHOD: Normal Ranges:RA Vol A4C: 17.8 ml (8.3-19.5ml)RA Vol Index A4C: 11.5 ml/m2RA Area A4C: 9.6 cm2RA [place] A4C: 4.4 cmM-MODE MEASUREMENTS: Normal Ranges:Ao Root: [...] standing today.Cont. Imdur, Plavix, and resume PO t3magojqt.Monitor Orthostatic vitals another 24 hrs.Continue telemetry Electronic Signatures:Ventura Thacker) (Signed 07-Sep-2017 21:58)Authored: Service, History of Present Illness, Review Family/Social Historyand ROS, Allergies, Objective, Assessment/Recommendations,S ignature/Cosignature/Attesta tion Last Updated: 07-Sep-2017 21:58 by Ventura Thacker) Normal [facility] Daily Progress Note-Neurolog yon 09-07-2017 Protein mass conc Service: Neurology Subjective Data:KATHERINE JUDGE is a 82 year old Female who is Hospital Day # 2. Objective Data: Objective Information:T [id number]/669 2%Date/Time09/06 21: 18: 21: 18: 21:Range(36.7C - 37.4C ) (73 - 96 ) (16 - 18 ) (111 - 189 )/ (66 - 104 )(92% - 97% )Highest temp of 37.4 C was recorded at 09/06 12:45 Pain at Rest reported at 09/06 20:35: 1Cwwvamxynfb1/29 21:29 P NWMwmwr07776 / 64 (138 - 162 ) / (64 - 87 )Cdzzjce77140 / 71 (136 - 146 ) / (68 - 82 )Lfbqdjdr307843 / 61 (101 - 124 ) / [...] MRA neck. The study was interpreted at [facility]. MRA Neck without Contrast [Sep 06 2017 [...] MRA neck. The study was interpreted at [facility]. MRA Head without Contrast [Sep 06 2017 [...] MRA neck. The study was interpreted at [facility]. MRI Brain without Contrast [Sep 06 2017 [...] Updated: 06-Sep-2017 22:21 by Altagracia Nicolas) Normal [facility] Discharge Hcoqryf5xu 07-30-2 018 Protein mass conc Discharge Orders:Ant icipated Discharge Date:? Anticipated Discharge Nftk97-Ank-3321? Anticipated Discharge Time11:00 Problem List: Additional Dx:? Hypokalemia: Catalog Name: Hypokalemia? Fall: Catalog Name: Unspecified fall, initial encounter? Leukocytosis: Catalog Name: Elevated white blood cell count, unspecified? Encephalopathy: Catalog Name: Encephalopathy, unspecified? Essential hypertension: Catalog Name: Essential (primary) hypertension? CAD (coronary artery disease): Catalog Name: Atherosclerotic heart diseaseof [place] coronary artery without angina pectoris? Hypercalcemia: Catalog [...] Medical HistoryCABG (2 vessel): Past Surgical History, 34-Fom-6954BHV: Past Medical HistoryNon ST elevation CA: Past Medical History, 09-Son-0744Hhfnoonq atherosclerosis: Past Medical HistorySepsis: Past Medical HistoryVenous thromboembolism: Past Medical HistoryChronic anemia: Past Medical HistoryNarcotic Use: OtherClostridium difficile toxin (C-Diff): Infection Control, 27-Aug-2012, iv[facility] ( [facility])Congestive Heart Failure (CHF): Past Medical HistoryMethicillin-Resistant Staph Aureus (MRSA): Infection Control, Mar 2012, sputumFamily spokesperson: Other, CARLOS [phone] BROTHERPAUL VELOZ [phone] Information: Contacts, son Ganga [phone] difficile toxin (C-Diff): Infection Control, 08-Jul-2017 Hospital Providers:Provider RoleProvider Name? Magui Love? Brionna Galindo? Benjy Pruitt Activity:activity as tolerated. May shower. Hospital Course (Home Care/Gold Form):Hospital Course:? Hospital Course: include significant abnormal lab dntdfy89-axey-bmf female with a past medical history of failure to thrive,gastrocutaneous fistula, constipation, ileus, small bowel obstruction,transient ischemic colitis, anemia, protein calorie malnutrition, hypokalemia,hypomagnesemia and colitis was admitted from the [place] emergency room due toaltered mental status. Acute [...] will monitor Hypokalemia-We will repeat labs DVT lonsvfxpbqt-Bpvkeme-yh light of cortical contusion and possible punctate lesions which maybe secondary to injury will d/c CODE STATUS: DO NOT RESUSCITATE [facility] care [facility] records. Patient is back to baseline neurologicallywill [...] ? Reason for Referralpost hospitalization ? Scheduled Date/Uqld00-Css-5335 11:00? [address] [address]? Phone [phone]? CommentsPlease arrive 10-15 minutes early, bring photo ID, insurance cards,discharge summary, and a list of current medications. Please call the officeif you need to change this appointment. Follow-Up Appointment 02:? Physician/Dept/ServiceDr. Altagracia Nicolas Neurology ? Reason for Referralpost hospitalization ? Scheduled Date/[id number] 11:00? [id number] [place] [address]? Phone [phone]? CommentsPlease arrive 10-15 minutes early, bring photo ID, insurance cards,discharge summary, and a list of current medications. Please call the officeif you need to change this appointment. Gold Form - Nursing Summary:Special Treatments/Procedures (in past 14 days):? Chemotherapyno? Dialysisno? IV Medicationno? Oxygen Therapyno? Transfusionsno? Feverno? Radiationno? Ventilatorno? Tracheostomyno? Suctioningno Nutrition:? Nutritional Statusfeeds self Sensory/Comfort:? Visionadequate? Hearingadequate? Speechclear? Painno Elimination:? Bladdercontinent? Bowelcontinent? Last Bowel Pbjfwoaq46-Hvv-[id number]? Toiletingtoilet Safety:? Siderailsno? Restraintsno? Sitterno? Fall Riskprevious falls, weakness Medication/Hygiene/Mobility: ? Medication Administrationassist? Bathingassist? Dressingassist? Bed Mobilityassist? Wheelchairassist? Transfersassist? Ambulationassist Electronic Signatures:Elida Calderón (RN) (Signed 08-Sep-2017 09:01)Authored: Gold Form - Nursing SummaryBrionna Llanes) (Signed 07-Sep-2017 20:40)Authored: Discharge Orders, Hospital Course (Home Care/Gold Form), ProviderFINAL REVIEW of Orders, Appointments, Gold Form - [place] Finder SummaryBrionna Hill (PT ACC REP) (Signed 08-Sep-2017 09:49)Authored: Appointments Last Updated: 08-Sep-2017 09:49 by Brionna Hill (PT ACC REP) Normal [facility] Nutrition Therapy-Assessment on 09-07-2017 Nutrition Therapy-Assessment Assessment Subjective/Objective:Note Type: Assessment Note Authored by: Registered Dietitian NutritionistPager Number: [phone] Nutrition Note:The patient is a 82 year [...] bowel obstruction (disorder):Acute bowel obstruction: Onset Date: 37-Kjf-0609Zczwatahysz abdominal pain (finding): Chronic:Fluid overload pulmonary edema:Clostridium difficile infection:Chest pain:Diarrhea: Other Dx/Proc:CHEST PAIN: Description: CHEST PAINUnstable angina/chest pain: Description: Unstable angina/chest painGastrointestinal bleeding: Description: Gastrointestinal bleeding1 Colitis, 2 Abdomen Pain 3 Cholelithiasis: Onset Date: 82-Tnr-3863Rqxcr failure: Description: Heart failurePNEUMONIA:Diabetes mellitus: Description: Diabetes [...] bowel obstruction (disorder):Acute bowel obstruction: Onset Date: 90-Njr-2263Yafxrimcgns abdominal pain (finding):Acute bowel obstruction:Acute bowel obstruction: Objective Information: T TDCUQbQ5Osyhv07.77962849/799 7%Date/Time09/07 10: 10: 10: 10: 10:58Range(36.5C - 37.4C ) (82 - 99 ) (16 - 19 ) (111 - 171 )/ (66 - 80 ) (92%- 98% )Highest temp of 37.4 C was recorded at 09/06 12:45 Pain at Rest reported at 09/07 9:30: 0 ---- Intake and Output -----Mn/Dy/Year TimeIntakeOutputNetJul 2017 10:00 [id number] 2017 2:00 [id number] The Intake and Output Totals for the last 24 hours are:OeayvnQajiugKaq9528hlyyw ull Intake Output Enteral - Oral 600 mL IV Fluids 600 mL Height/Weight:Height in feet: 5 feetHeight in inches: 0 inch(es)Height in cm: 152.4 centimeter(s)Weight (kg): 43.8BMI (kg/m2): 18.858 square meterDBW (kg): 45%DBW: 97Weight history/ % weight change: 08/31/17 -- 40.6kg06/18/17 -- 45.9kg, 4.5% weight loss in 3 months; noted but not signfiican03/20/17 -- 46.8kg -- 6.4% weight loss in 6 months; not yrciurrlvxg64/13/17 -- 45.9kg07/30/16 -- 49kg -- 10.6% weight [...] 24.0 Nutrition Labs:Special Chemistry: 03-Jul-2017 10:15, Hemoglobin Q9QVzhldkxcwa A1C, Level5.3 Diagnosis of Diabetes-Adults Non-Diabetic: < or = 5.6% Increased risk for developing diabetes: 5.7-6.4% Diagnostic of diabetes: > or = 6.5%. Monitoring of Diabetes Age (y) Therapeutic Goal (%) Adults: >18 <7.0 Pediatrics: 13-18 <7.5 7-12 <8.0 0- 6 7.5-8.5 [employer]. Diabetes Care 33(S1), Feb 2009.Estimated Average Lhpxmua715Jsnfppkxuvjfp: 06-Sep-2017 05:45, Vitamin D (25-Hydroxy), LevelVitamin D (25-Hydroxy), Level19.DEFICIENCY: < 20 NG/MLINSUFFICIENCY: 20-29 NG/MLOPTIMUM LEVEL: 30-80 NG/MLPOSSIBLE TOXICITY: > 80 NG/MLTHIS ASSAY ACCURATELY QUANTIFIES THE SUM OFVITAMIN D3, 25-HYDROXY AND VIT D2,25-HYDROXY. Current Active Medications/PN:Isosorbide Mononitrate Extended Release, Tablet, Extended Release (IMDUR)DOSE = 60 mg Oral Daily, 32-Zvq-8591Igplisplc Chloride Powder Packet, (K-SHAUN)DOSE = 20 mEq Oral DailyNotes from Pharmacy: Substitution for Potassium Chloride Oral Liquid 20 mEqDaily, 73-Sem-0865Bjqucouyfh Injectable, (LOPRESSOR)DOSE = 5 mg IntraVenous Push Every 6 HoursClinician Notes: hold for SBP<105 or HR<60, 20-Dxl-3614Lzxkuqzzx 5% TransDermal, Film (LIDODERM)DOSE = 1 patch TransDermal Every 24 HoursClinician Notes: to back, 70-Npo-6070Omrjgyrngnquy, Tablet (TYLENOL)DOSE = 650 mg Oral Every 6 Hours, PRN Pain - Mild (1-3), 92-Blo-5027Pzphyfaxqyi, Tablet (PLAVIX)DOSE = 75 mg Oral Daily, 11-Jdc-7951Ntnrvdctoqvekpy (Vitamin D3), TabletDOSE = 1,000 International Unit(s Oral Daily, 16-Dpw-9601Wrhptl Chloride 0.9% with Potassium CL 20 mEq Premix Fluid, IV Bag Volume =1,000 mL Run at: 75 mL/hr IntraVenous , 06-Sep-2017 Nutrition Orders:Diet May Not Participate in Room Service, NoOrder entered from Admission Screens., 14-Kal-0900Mxru, RegularTexture: Soft, 73-Qwb-9253Ntzb Nutritional Supplements, RoutineMagic CupFlavor Preference: [place]; Parker, 2 Times a DaySpecial Instructions: Please send [...] 12:59 by Mikie May (DEEPA HENRIQUEZ) Normal [facility] AMMONIAon 09-06-2017 Ammonia mass conc (P) 19 umol/L Normal [facility] Comment on above: Result Comment: .REF ERENCE VALUESDAY 1 to DAY 7 <110DAY 8 to DAY 14 < 90DAY 15 to ADULT 16-53 Performed By: #### A MM ####[address] [address] BASIC METABOLIC PANELon 07- Anion gap 3 molar conc 12 mmol/L Normal 10 - 20 [facility] Comment on above: Performed By: #### B MP ####[address] [address] Calcium mass conc 8.7 mg/dL Normal 8.6 - 10.3 [facility] Comment on above: Performed By: #### B MP ####[facility] [id number] [place] [address] Chloride molar conc 104 mmol/L Normal 98 - 107 [facility] Comment on above: Performed By: #### B MP ####[facility] [id number] [place] [address] Creatinine mass conc 0.57 mg/dL Normal 0.50 - 1.05 [facility] Comment on above: Performed By: #### B MP ####[facility] [id number] [place] [address] GFR- AM. >60 Normal >60 [facility] Comment on above: Result Comment: CALC ULATIONS OF ESTIMATED GFR ARE PERFORMED USING THE MDRD STUDY EQUATION FOR THE IDMS-TRACEABLE CREATININE METHODS. CLIN CHEM 2007;53:766-72 Performed By: #### B MP ####[facility] [id number] [place] [address] GFR-NON AM. >60 Normal >60 [facility] Comment on above: Performed By: #### B MP ####[facility] [id number] [place] [address] Glucose mass conc 110 mg/dL High 74 - 99 [facility] Comment on above: Performed By: #### B MP ####[facility] [id number] [place] [address] HCO3 molar conc (Bld) 27 mmol/L Normal 21 - 32 [facility] Comment on above: Performed By: #### B MP ####[facility] [id number] [place] [address] Potassium molar conc 3.8 mmol/L Normal 3.5 - 5.3 [facility] Comment on above: Performed By: #### B MP ####[facility] [id number] [place] [address] Sodium molar conc 139 mmol/L Normal 136 - 145 [facility] Comment on above: Performed By: #### B MP ####[facility] [id number] [place] [address] Urea nitrogen mass conc 7 mg/dL Normal 6 - 23 [facility] Comment on above: Performed By: #### B MP ####[facility] [id number] [place] [address] Daily Progress Note-Medicine on 09-06-2017 Protein mass conc Service: Medicine Rick bjective Data:KATHERINE JUDGE is a 82 year old Female who is Hospital Day # 2. Patient is back to baseline neurologically. Objective Data: Objective Information:T GTMXHpE6Qffwi31.02052767/669 4%Date/Time09/06 12: 12: 12: 12: 12:57Range(36.7C - [...] Urine STRAW Reference Range: STRAW,YELLOWAppearance, Urine CLEARSpecific [place], Urine 1.005pH, Urine 6.0Protein, Urine NEGATIVEGlucose, Urine [...] 20:32NSTEMI (non-ST elevated myocardial infarction): Entered Date: 27-Qjy-587647:25UTI (urinary tract infection), bacterial: Entered Date: 27-Dec-2016 [...] bowel obstruction: Onset Date: 11-Feb-2012, Entered Date: 43-Tru-739871:56Generalized abdominal pain (finding): Entered Date: 11-Feb-2012 18:56 [...] ST Elevation Myocardial Infarction (NSTEMI): Entered Date: 65-Ugo-320679:29Coronary angioplasty/stent (PCI): Entered Date: 12-Dec-2009 15:30Dyspnea: Entered [...] hypokalemia,hypomagnesemia and colitis was admitted from the [place] emergency room due toaltered mental status. Acute [...] will monitor Hypokalemia-We will repeat labs DVT rjtygaawbyc-Qqpakpq-qa light of cortical contusion and possible punctate lesions which maybe secondary to injury will d/c CODE STATUS: DO NOT RESUSCITATE [facility] home records. Patient is back to baseline neurologicallywill continue to monitor Electronic Signatures:Brionna Llanes) (Signed 06-Sep-2017 16:28)Authored: Service, Subjective Data, Objective Data, Assessment and Plan,Signature/Cosignature/A ttestation Last Updated: 06-Sep-2017 16:28 by Brionna Llanes) Normal [facility] FOLATE, SERUMon 09-06-2017 Folate [Mass/volume] in Serum or Plasma > 24.0 Normal >5.0 [facility] Comment on above: Result Comment: Daniel ents receiving more than 5 mg/day of biotin may have interference in test results. A sample should be taken no sooner than eight hours after previous dose. Contact [phone] for additional information. Performed By: #### F OLA2 ####[id number] [place] [address] NR MRA HEAD W/O Con 09-07-19 18 NR MRA HEAD W/O C Name: KATHERINE JUDGE STUDY:NR MRI BRAIN WO; NR MRA HEAD W/O C; NR MRA NECK WO.C; 09/06/2017 12:00pm INDICATION:Signs/Symptoms: Recent fall, CHI, stroke symptoms- evaluate for acutestroke; ALTERED MENTAL STATUS. Stroke protocol. COMPARISON: CT head from 09/05/2017 [id number]; [id number] ORDERING CLINICIAN:ALTAGRACIA GOODMAN TECHNIQUE:Axial T2, FLAIR, DWI and sagittal and coronal T1 weighted images ofbrain were acquired. T0 axial gradient echo T2 imaging was alsoperformed. Hsds-ia-redrjg MRA of the head and neck was [...] MRA neck. The study was interpreted at [facility].Electronically signed by: TOLU MARTINEZ MD Normal [facility] NR MRA NECK WO.Con 8 NR MRA NECK WO.C Name: KATHERINE JUDGE STUDY:NR MRI BRAIN WO; NR MRA HEAD W/O C; NR MRA NECK WO.C; 09/06/2017 12:00pm INDICATION:Signs/Symptoms: Recent fall, CHI, stroke symptoms- evaluate for acutestroke; ALTERED MENTAL STATUS. Stroke protocol. COMPARISON: CT head from 09/05/2017 [id number]; [id number] ORDERING CLINICIAN:ALTAGRACIA GOODMAN TECHNIQUE:Axial T2, FLAIR, DWI and sagittal and coronal T1 weighted images ofbrain were acquired. T0 axial gradient echo T2 imaging was alsoperformed. Dsbv-fq-pamchp MRA of the head and neck was [...] MRA neck. The study was interpreted at [facility].Electronically signed by: TOLU MARTINEZ MD [facility] NR MRI BRAIN WOon 09-06-2017 NR MRI BRAIN WO Name: KATHERINE JUDGE STUDY:NR MRI BRAIN WO; NR MRA HEAD W/O C; NR MRA NECK WO.C; 09/06/2017 12:00pm INDICATION:Signs/Symptoms: Recent fall, CHI, stroke symptoms- evaluate for acutestroke; ALTERED MENTAL STATUS. Stroke protocol. COMPARISON: CT head from 09/05/2017 [id number]; [id number] ORDERING CLINICIAN:ALTAGRACIA GOODMAN TECHNIQUE:Axial T2, FLAIR, DWI and sagittal and coronal T1 weighted images ofbrain were acquired. T0 axial gradient echo T2 imaging was alsoperformed. Fiok-av-fxgvrg MRA of the head and neck was [...] MRA neck. The study was interpreted at [facility].Electronically signed by: TOLU MARTINEZ MD Normal [facility] TSHon 09-06-2017 Thyrotropin Qn 2.11 m[IU]/L Normal 0.44 - 3.98 [facility] Comment on above: Result Comment: TSH testing is performed using different testing methodology at [facility] than at other [facility]. Direct result comparisons should only be made within the same method. Performed By: #### T SH2 ####[facility] [place] [address] VITAMIN B12on 09-06-2017 Cobalamin (Vitamin B12) mass conc 770 pg/mL Normal 211 - 911 [facility] Comment on above: Performed By: #### V TB12 ####[id number] [place] [address] VITAMIN D, 25-HYDROXYon 08-10 VITAMIN D, 25-HYDROXY 19 ng/mL Abnormal [facility] Comment on above: Result Comment: .DEF ICIENCY: < 20 NG/MLINSUFFICIENCY: 20-29 NG/MLOPTIMUM LEVEL: 30-80 NG/MLPOSSIBLE TOXICITY: > 80 NG/MLTHIS ASSAY ACCURATELY QUANTIFIES THE SUM OFVITAMIN D3, 25-HYDROXY AND VIT D2,25-HYDROXY. Performed By: #### V TDOH ####[id number] [place] [address] Admission Risk Screen - Adul ton 09-05-2017 [...] Spiritual Screen:? Are there any cultural, spiritual, jain practices/values/needs that areimportant for us to know?unable to assess CAGE:Is this an injured patient at a Trauma Center ([facility] [place]): no Vaccinations:Vaccination - Influenza Vaccination Screen:? Is [...] 05-Sep-2017 06:29 by Shira Chaidez (RN) Normal [facility] BASIC METABOLIC PANELon 07-2 Anion gap 3 molar conc 11 mmol/L Normal 10 - 20 [facility] Comment on above: Performed By: #### B MP ####[facility] [id number] [place] [address] Calcium mass conc 8.9 mg/dL Normal 8.6 - 10.3 [facility] Comment on above: Performed By: #### B MP ####[facility] REG [id number] [place] [address] Chloride molar conc 104 mmol/L Normal 98 - 107 [facility] Comment on above: Performed By: #### B MP ####[facility] [id number] [place] [address] Creatinine mass conc 0.75 mg/dL Normal 0.50 - 1.05 [facility] Comment on above: Performed By: #### B MP ####[facility] REG [id number] [place] [address] GFR- AM. >60 Normal >60 [facility] Comment on above: Result Comment: CALC ULATIONS OF ESTIMATED GFR ARE PERFORMED USING THE MDRD STUDY EQUATION FOR THE IDMS-TRACEABLE CREATININE METHODS. CLIN CHEM 2007;53:766-72 Performed By: #### B MP ####[facility] [id number] [place] [address] GFR-NON AM. >60 Normal >60 [facility] Comment on above: Performed By: #### B MP ####[facility] [id number] [place] [address] Glucose mass conc 111 mg/dL High 74 - 99 [facility] Comment on above: Performed By: #### B MP ####[facility] [id number] [place] [address] HCO3 molar conc (Bld) 26 mmol/L Normal 21 - 32 [facility] Comment on above: Performed By: #### B MP ####[facility] [id number] [place] [address] Potassium molar conc 3.2 mmol/L Low 3.5 - 5.3 [facility] Comment on above: Performed By: #### B MP ####[facility] [id number] [place] [address] Sodium molar conc 138 mmol/L Normal 136 - 145 [facility] Comment on above: Performed By: #### B MP ####[facility] [id number] [place] [address] Urea nitrogen mass conc 11 mg/dL Normal 6 - 23 [facility] Comment on above: Performed By: #### B MP ####[facility] [id number] [place] [address] BLOOD CULTURE, BACTERIALon 0 09-05-2017 BLOOD CULTURE, BACTERIAL PATIENT: KATHERINE JUDGE LOCATION: [address]#: [id number] : [birth year] AGE: SEX: F ORDERED BY: LOTUS VANCE: Blood COLLECTED: 09/05/17 01:49ANTIBIOTICS AT ESDRAS.: RECEIVED : 09/05/17 11:22SITE: PERIPHERAL R E S U L T S BLOOD CULTURE, BACTERIAL FINAL 09/10/17 11:42 No Growth at 1 days No Growth at 2 days No Growth at 3 days No Growth at 4 days NO GROWTH - FINAL REPORT Normal [facility] Comment on above: Performed By: #### L IPID ####[id number] [place] [address] BLOOD CULTURE, BACTERIAL PATIENT: KATHERINE JUDGE LOCATION: [address]#: [id number] : [birth year] AGE: SEX: F ORDERED BY: LOTUS VANCE: Blood COLLECTED: 09/05/17 01:49ANTIBIOTICS AT ESDRAS.: RECEIVED : 09/05/17 11:22SITE: PERIPHERAL R E S U L T S BLOOD CULTURE, BACTERIAL FINAL 09/10/17 11:42 No Growth at 1 days No Growth at 2 days No Growth at 3 days No Growth at 4 days NO GROWTH - FINAL REPORT Normal [facility] Comment on above: Performed By: #### L IPID ####[id number] [place] [address] CBCon 09-05-2017 Erythrocyte distribution width Auto Ratio (RBC) 15.5 % High 11.5 - 14.5 [facility] Comment on above: Performed By: #### C BC ####[facility] [id number] [place] [address] Hematocrit Auto Volume Fraction (Bld) 27.1 % Low 36.0 - 46.0 [facility] Comment on above: Performed By: #### C BC ####[facility] [id number] [facility] [address] [place] [address] Hemoglobin mass conc (Bld) 8.5 g/dL Low 12.0 - 16.0 [facility] Comment on above: Performed By: #### C BC ####[facility] [id number] [place] [address] MCHC Auto mass conc (RBC) 31.4 g/dL Low 32.0 - 36.0 [facility] Comment on above: Performed By: #### C BC ####[facility] REG [id number] [place] [address] MCV Auto Entitic volume (RBC) 100 fL Normal 80 - 100 [facility] Comment on above: Performed By: #### C BC ####[facility] REG [id number] [place] [address] Platelets Auto #/vol (Bld) 359 10*3/uL Normal 150 - 450 [facility] Comment on above: Performed By: #### C BC ####[facility] [id number] [place] [address] RBC Auto #/vol (Bld) 2.72 x10E12/L Low 4.00 - 5.20 [facility] Comment on above: Performed By: #### C BC ####[facility] REG [id number] [place] [address] WBC Auto #/vol (Bld) 10.6 10*3/uL Normal 4.4 - 11.3 [facility] Comment on above: Performed By: #### C BC ####[facility] [place] [address] CBC AND DIFFERENTIALon 09-05 % AUTOMATED IMMATURE GRAN 0.5 % Normal 0.0 - 0.9 [facility] Comment on above: Result Comment: Perc ent differential counts (%) should be interpreted in the context of the absolute cell counts (cells/L). Performed By: #### L IPID ####[address] [address] % NEUTROPHIL 70.6 % Normal 40.0 - 80.0 [facility] Comment on above: Performed By: #### L IPID ####[address] [address] Basophils/100 WBC Auto (Bld) 0.04 x10E9/L Normal 0.00 - 0.10 [facility] Comment on above: Performed By: #### L IPID ####[address] [address] Basophils/100 WBC Auto (Bld) 0.3 % Normal 0.0 - 2.0 [facility] Comment on above: Performed By: #### L IPID ####[address] [address] Eosinophils Auto #/vol (Bld) 0.13 10*3/uL Normal 0.00 - 0.40 [facility] Comment on above: Performed By: #### L IPID ####[address] [address] Eosinophils/100 WBC Auto (Bld) 1.1 % Normal 0.0 - 6.0 [facility] Comment on above: Performed By: #### L IPID ####[address] [address] Erythrocyte distribution width Auto Ratio (RBC) 15.3 % High 11.5 - 14.5 [facility] Comment on above: Performed By: #### L IPID ####[address] [address] Hematocrit Auto Volume Fraction (Bld) 25.6 % Low 36.0 - 46.0 [facility] Comment on above: Performed By: #### L IPID ####[address] [address] Hemoglobin mass conc (Bld) 8.4 g/dL Low 12.0 - 16.0 [facility] Comment on above: Performed By: #### L IPID ####[address] [address] Lymphocytes Auto #/vol (Bld) 2.55 10*3/uL Normal 0.80 - 3.00 [facility] Comment on above: Performed By: #### L IPID ####[address] [address] Lymphocytes/100 WBC Auto (Bld) 21.6 % Normal 13.0 - 44.0 [facility] Comment on above: Performed By: #### L IPID ####[address] [address] MCHC Auto mass conc (RBC) 32.8 g/dL Normal 32.0 - 36.0 [facility] Comment on above: Performed By: #### L IPID ####[id number] [place] [address] MCV Auto Entitic volume (RBC) 100 fL Normal 80 - 100 [facility] Comment on above: Performed By: #### L IPID ####[id number] [place] [address] Monocytes Auto #/vol (Bld) 0.70 10*3/uL Normal 0.05 - 0.80 [facility] Comment on above: Performed By: #### L IPID ####[address] [address] Monocytes/100 WBC Auto (Bld) 5.9 % Normal 2.0 - 10.0 [facility] Comment on above: Performed By: #### L IPID ####[address] [address] Neutrophils Auto #/vol (Bld) 8.31 10*3/uL High 1.60 - 5.50 [facility] Comment on above: Performed By: #### L IPID ####[address] [address] Platelets Auto #/vol (Bld) 422 10*3/uL Normal 150 - 450 [facility] Comment on above: Performed By: #### L IPID ####[address] [address] RBC Auto #/vol (Bld) 2.56 x10E12/L Low 4.00 - 5.20 [facility] Comment on above: Performed By: #### L IPID ####[address] [address] WBC Auto #/vol (Bld) 11.8 10*3/uL High 4.4 - 11.3 [facility] Comment on above: Performed By: #### L IPID ####[address] [address] CHEST 1 VIEWon 09-05-2017 CHEST 1 VIEW [...] hernia.Electronically signed by: CAMILLE VELÁZQUEZ MD Normal [facility] COMPREHENSIVE PANELon 2017 Albumin mass conc 3.3 g/dL Low 3.4 - 5.0 [facility] Comment on above: Performed By: #### L IPID ####[address] [address] ALP enzyme act/vol 95 U/L Normal 33 - 136 [facility] Comment on above: Performed By: #### L IPID ####[address] [address] ALT enzyme act/vol 16 U/L Normal 7 - 45 [facility] Comment on above: Result Comment: Daniel ents treated with Sulfasalazine may generate falsely decreased results for ALT. Performed By: #### L IPID ####[address] [address] Anion gap 3 molar conc 14 mmol/L Normal 10 - 20 [facility] Comment on above: Performed By: #### L IPID ####[address] [address] AST enzyme act/vol 19 U/L Normal 9 - 39 [facility] Comment on above: Performed By: #### L IPID ####[address] [place] [address] Bilirubin mass conc 0.4 mg/dL Normal 0.0 - 1.2 [facility] Comment on above: Performed By: #### L IPID ####[address] [place] [address] Calcium mass conc 9.2 mg/dL Normal 8.6 - 10.3 [facility] Comment on above: Performed By: #### L IPID ####[address] [place] [address] Chloride molar conc 99 mmol/L Normal 98 - 107 [facility] Comment on above: Performed By: #### L IPID ####[address] [address] Creatinine mass conc 0.99 mg/dL Normal 0.50 - 1.05 [facility] Comment on above: Performed By: #### L IPID ####[address] [address] GFR- AM. 65 mL/min/1.73m2 Normal >60 [facility] Comment on above: Result Comment: CALC ULATIONS OF ESTIMATED GFR ARE PERFORMED USING THE MDRD STUDY EQUATION FOR THE IDMS-TRACEABLE CREATININE METHODS. CLIN CHEM 2007;53:766-72 Performed By: #### L IPID ####[address] [address] GFR-NON AM. 54 mL/min/1.73m2 Abnormal >60 [facility] Comment on above: Performed By: #### L IPID ####[address] [address] Glucose mass conc 94 mg/dL Normal 74 - 99 [facility] Comment on above: Performed By: #### L IPID ####[address] [address] HCO3 molar conc (Bld) 28 mmol/L Normal 21 - 32 [facility] Comment on above: Performed By: #### L IPID ####[address] [address] Potassium molar conc 3.4 mmol/L Low 3.5 - 5.3 [facility] Comment on above: Performed By: #### L IPID ####[address] [address] Protein mass conc 6.9 g/dL Normal 6.4 - 8.2 [facility] Comment on above: Performed By: #### L IPID ####[address] [address] Sodium molar conc 138 mmol/L Normal 136 - 145 [facility] Comment on above: Performed By: #### L IPID ####[facility] [place] [id number] Urea nitrogen mass conc 16 mg/dL Normal 6 - 23 [facility] Comment on above: Performed By: #### L IPID ####[facility] [place] [address] CT HEAD WO CONTRASTon 2017 CT HEAD [...] changes.Electronically signed by: CAMILLE VELÁZQUEZ MD Normal [facility] Consult - Neuroon 09-05-2017 Consult - Neuro Service:Consult:Cons ult requested by (Attending Name): Dr. Abraham: Syncope History of Present Illness:HPI:This is a 82 year old woman, poor historian, amnestic for her fall,unwitnessed, resulting in a CHI, resulting in a left forehead contusion, shewas found on the floor. She was recently discharged from this hospital on tlo26pn after management ofa SBO. She has had FTT, repeated abdominal surgeries. PMH: CAD, depression,anemia. Nursing tells me that she has had visual hallucinations: reaching forthings she apparently sees in the air. 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 PMH, PSH, SH, and FH were [...] Confusion? Restoril: Confusion Objective: Objective Information: T JHBRYiC3Pebpw60.54323620/92D ate/Time09/05 6: 6: 6: 6:16Range(36.7C - 36.7C [...] exam was normal. In both upper extremities, tamsaz-gaxa-dbjoztoup intact without dysmetria or overshoot.In both lower extremities, yukf-io-iced was intact. DONALD were intact in bothupper [...] Urine STRAW Reference Range: STRAW,YELLOWAppearance, Urine CLEARSpecific [place], Urine 1.005pH, Urine 6.0Protein, Urine NEGATIVEGlucose, Urine [...] Last Updated: 05-Sep-2017 12:10 by Altagracia Nicolas) [facility] Discharge Planning Noteon Discharge Planning Note Discharge Needs Assessment:? Discharge Planning Assessment Rypw06-Nyh-7516? Discharge Planning Assessment Completed byMeghan Haro RN-BC? Readmission Within the Last 30 Daysprevious discharge plan unsuccessful? Primary Care Physician Hugo Adult Information:? Reason for Admission as Stated by PatientAMS? Primary Support Person During Hospitalizationdontae Schuler ? Lives Withspouse? Financial Concernsnone Other Factors:? Functional Screen: In the recent/past 2-4 weeks, patient or family havenoticeda significant change in speech or language(1) Discharge Planning:[facility] Plannin09/05/17 [facility]. [facility] [place], had small bowelobstruction. Unwitnessed fall, change in mental status, confused. Shouldreturn to SNF when medically stable. Will follow pt through hospital stay andadjust plan as needed. Meghan Haro RN-BC 09/07/17 1054 DSC: Return SNF referral sent to [facility] awaiting response.Olga Lehman Discharge Loan Representative [phone] 09/07/17 1139 DSC: Response received from following [facility] facilities:[facility] Olga Lehman Discharge SupportCoordinator [phone] 09/08/17 1131 DSC: No 7000 needed, final orders attached and sent to facility.Olga Lehman Discharge Loan Representative [phone] 09/08/17 late entry PCN: Executive Sous Chef/Industrial Laborer notified transportset for 1300 picker packer, via wheelchair with [facility] providingtransport. Keyana Haro, Billing Customer Service Representative, Final Disposition/Discharge:Dispos ition/Discharge Information: Discharge/Transfer Information:? Discharge/Transfer Date/Lsin51-Ssu-5373 13:00? Discharge Modewheelchair? Transportation Methodtransportation service? Valuables/Medications/Belong [...] Screen - Adult 09/05/2017 6:24 AM Normal [facility] History and Physicalon 09-05 History and Physical History of Present Illness:Admission Reason: Acute encephalopathyHPI:82-year-ol d female with a past medical history of failure to thrive,gastrocutaneous fistula, constipation, ileus, small bowel obstruction,transient ischemic colitis, anemia, protein calorie malnutrition, hypokalemia,hypomagnesemia and colitis was admitted from the [place] emergency room due toaltered mental status. Patient has had multiple abdominal [facility]. She was recently discharged from the hospital [...] Confusion? Restoril: Confusion Objective: Objective Information: T ZXBPMnT4Xysws66.02020511/92D ate/Time09/05 6: 6: 6: 6:16Range(36.7C - 36.7C [...] Urine STRAW Reference Range: STRAW,YELLOWAppearance, Urine CLEARSpecific [place], Urine 1.005pH, Urine 6.0Protein, Urine NEGATIVEGlucose, Urine [...] hypokalemia,hypomagnesemia and colitis was admitted from the [place] emergency room due toaltered mental status. Acute [...] prophylaxis-Lovenox CODE STATUS: DO NOT RESUSCITATE [facility] care home records. Signatures/Attestation/Certi fication:Attending Provider ? Inpatient Certification StatementN/A - observationpatient/other outpatient visits Electronic Signatures:Flako Goodman) (Signed 05-Sep-2017 07:49)Authored: History of Present Illness, Comorbidities, Allergies, Objective,Assessment and Plan, Signatures/Attestation/Certi fication Last Updated: 05-Sep-2017 07:49 by Flako Goodman) Normal [facility] LACTATEon 09-05-2017 Lactate molar conc 1.0 mmol/L Normal 0.4 - 2.0 [facility] Comment on above: Result Comment: Hali puncture immediately after or during the administration of Metamizole may lead to falsely low results. Testing should be performed immediately prior to Metamizole dosing. Performed By: #### L IPID ####[id number] [place] [address] PT/INRon 09-05-2017 INR Coag RelTime (PPP) 1.1 {INR} Normal 0.9 - 1.1 [facility] Comment on above: Performed By: #### L IPID ####[facility] [place] [address] Prothrombin time (PT) Coag time (PPP) 11.5 s Normal 9.8 - 12.7 [facility] Comment on above: Performed By: #### L IPID ####[facility] [place] [address] Patient Profile - Adult v2on 09-05-2017 Protein mass conc Profile:Initial Info :How to be AddressedAlice(1)Spoken Language PreferredEnglish (2)Source of InformationpatientAre you currently using the Personal Electronic Health Record or [employer](1)Stated Reason for Admissionunable to respond appropriately.Arrived Fromemergency departmentPatient BelongingsnoneMedications Brought to [facility]:Weight in kg43.8 kilogram(s)Weight in [...] Restoril: Drug, Confusion, Active Electronic Signatures:Shira Chaidez (CINTHYA) (Signed 05-Sep-2017 06:39)Authored: Profile, Additional Information Last Updated: 05-Sep-2017 06:39 by Shira Chaidez (CINTHYA) References:1. Data Referenced From Patient Profile - Adult v2 08/26/2017 04:19 AM2. 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 Patient herself cannot provide history. [facility] royal was kind [...] oral tabletInstructions: 1 tab(s) orally once a kmhH-N-Fu-F-Sa Drug Name: tiZANidine 2 mg oral tabletInstructions: [...] difficile toxin (C-Diff) Additional Notes:came with ( [facility]) Status:Active Description:Methicillin-Resi stant Staph Aureus (MRSA) Additional Notes:sputum Status:Active Description:Clostridium difficile toxin (C-Diff) Status:Active Other Description:Narcotic Use Status:Active Description:Family spokesperson Additional Notes: CARLOS [phone] BROTHER RYLAND [phone] Status:Active Past Medical History Description:colitis Status:Active Description:mitral [...] Urine STRAW Reference Range: STRAW,YELLOWAppearance, Urine CLEARSpecific [place], Urine 1.005pH, Urine 6.0Protein, Urine NEGATIVEGlucose, Urine [...] 2:52AM] VITAL SIGNS: T PRBP SpO2O2(LPM) %FiO2 Sjvsxl86-Nuz-2229 02:42:00-36.60170173/62 92 room air, no ugyjjkjbkfttxukskg17-Nrp-193 8 00:33:00-36.96643638/75 94 room air, no respiratorysupport EKG INTERPRETATION:EKG Date/Time: 05-Sep-2017 00:34Rate: 83Comments: Sinus rhythm rate of 83. No acute ST segment elevation. Rightbundle-branch block. T-wave abnormality involving the inferior leads, inferiorischemia. Portable. Abnormal EKG. No prior EKG to compare to MEDICAL DECISION MAKING/ED COURSEMDM/ED COURSE: Patient was sent to the emergency room by Dr. Renee with advised to transferpatient to use at [facility].Also discussed case with Anyi Gusman he want patient to be transferred to [facility]. Dr. Michelle accepted patient transferred to at [facility]. Shows power of estate attorney was not available and I will, Patient'sBrother Came andPatient Transfer Paperwork and Agree with the Transfer to the [facility]. CLINICAL IMPRESSIONDiagnosis/Annotati on: ED Dx Name:Altered mental status Code:R41.82 Name:Closed head injury Code:S09.90XA Name:Fall at care home Code:W19.XXXA Dispostion: transferred Time of First Call for Transfer: 04:00[facility]: 04:20Consulting Physician Name: Dr. Miguel Angel M.D.Transfer Accepted: yes ATTESTATION CRITICAL CARE TIMEIs this a critically ill patient?: no Electronic Signatures:Maria A Vance) (Signed 05-Sep-2017 04:43)Authored: Provider Note - ED v2 Last Updated: 05-Sep-2017 04:43 by Maria A Vance) References:1. Data Referenced From Triage - ED 09/05/2017 12:33 AM Normal [facility] RED CELL MORPHOLOGYon 2017 HYPOCHROMASIA Mild Normal [facility] Comment on above: Performed By: #### L IPID ####[facility] [place] [address] RBC morphology finding Nom (Bld) See Below Normal [facility] Comment on above: Performed By: #### L IPID ####[facility] [place] [address] TROPONIN Ion 09-05-2017 Troponin I.cardiac mass conc 0.02 ng/mL Normal 0.00 - 0.03 [facility] Comment on above: Result Comment: LESS THAN 0.04 NG/ML: NEGATIVEREPEAT TESTING IN FOUR TO SIX HOURSIF CLINICALLY INDICATED.0.04 - 0.5 NG/ML: CONSISTENT WITH POSSIBLECARDIAC DAMAGE AND POSSIBLE INCREASEDCLINICAL RISK.SERIAL MEASUREMENTS MAY HELP ASSESS EXTENT OFMYOCARDIAL DAMAGE.>0.5 NG/ML: CONSISTENT WITH CARDIAC DAMAGE,INCREASED CLINICAL RISK AND MYOCARDIALINFARCTION. SERIAL MEASUREMENTS MAY HELPASSESS EXTENT OF MYOCARDIAL DAMAGE..Note: Troponin I testing is performed using differenttesting methodology at [facility] than at [facility]. Direct result comparisons should onlybe made within the same method. Performed By: #### T ROP2 ####[address] [address] Troponin I.cardiac mass conc 0.02 ng/mL Normal 0.00 - 0.03 [facility] Comment on above: Result Comment: LESS THAN 0.04 NG/ML: NEGATIVEREPEAT TESTING IN FOUR TO SIX HOURSIF CLINICALLY INDICATED.0.04 - 0.5 NG/ML: CONSISTENT WITH POSSIBLECARDIAC DAMAGE AND POSSIBLE INCREASEDCLINICAL RISK.SERIAL MEASUREMENTS MAY HELP ASSESS EXTENT OFMYOCARDIAL DAMAGE.>0.5 NG/ML: CONSISTENT WITH CARDIAC DAMAGE,INCREASED CLINICAL RISK AND MYOCARDIALINFARCTION. SERIAL MEASUREMENTS MAY HELPASSESS EXTENT OF MYOCARDIAL DAMAGE..Note: Troponin I testing is performed using differenttesting methodology at [facility] than at [facility]. Direct result comparisons should onlybe made within the same method. Performed By: #### T ROP2 ####[address] [address] Troponin I.cardiac mass conc 0.02 ng/mL Normal 0.00 - 0.03 [facility] Comment on above: Result Comment: [...] testing is performed using differenttesting methodology at [facility] than at [facility]. Direct result comparisons should onlybe made within the same method. Performed By: #### L IPID ####[facility] [place] [address] Triage - EDon 09-05-2017 Triage - ED Quick Triage:The pat ient and/or guardian verbally acknowledges placement for services intothe following (when Urgent Care Service hours are operating):emergencydepartme nt Pain:Pain Rating (0-10): Rest3 Chart Review: CHIEF COMPLAINT KATHERINE JUDGE is a Female patient with a chief complaint of altered mentalstatus.Onset of the Complaint: 74-Liq-4937Ylbydf Date/Time: 05-Sep-2017 00:19Vital Signs:Temperature: 97.6F ( 36.4C) taken foreheadBlood Pressure: 148/75 Mean:Heart Rate: 85Respiratory Rate: 20Pulse Oximetry: 94% Height: 5 feet 4.00 inches. 162.5 CMWeight: 120.0 pounds. Calculated 54.4 kg.Calculated BMI (kg/m2): 20.601 Calculated BSA (m2) 1.57 Cough lasting greater than 3 weeks: noPatient immunocompromised related to: N/ATravel outside of [place]: noAllergies: yesOB/CRUSHER WET GROUND MICA History: menopausePatient has suicidal thoughts: unable to assessPatient has homicidal thoughts: unable to assessESI: 2 Last Known Well: unknown PAIN Pain Scale Used: SANDOVAL ARRIVAL INFORMATION Means of Arrival: stretcher Mode of Arrival: ambulance Agency: [facility] ArrivalFrom: retirement facility Accompanied By: EMT/paramedicLanguage:Spoken Language Preferred: Ecuadorean Reading Language Preferred: Ecuadorean PRIMARY ASSESSMENT DisabilityDisability/AVPU: KATHERINE is confusedLevel of Consciousness: disoriented to self PAST MEDICAL HISTORY Immunization History:Last Known Tetanus Immunization: Unknown TRAVEL HISTORY Travel Exposure History: NO travel to International locations in the past 30days Past Medical History:? Past Medical History Reviewedyes Electronic Signatures:Nicol Diaz (RN) (Signed 05-Sep-2017 00:56)Authored: Triage, Past Medical History Last Updated: 05-Sep-2017 00:56 by Nicol Diaz (RN) Normal [facility] URINALYSISon 09-05-2017 APPEARANCE CLEAR Normal CLEAR [facility] Comment on above: Performed By: #### L IPID ####[address] [place] [address] BILIRUBIN Negative Normal NEGATIVE [facility] Comment on above: Performed By: #### L IPID ####[facility] [place] [address] BLOOD Negative Normal NEGATIVE [facility] Comment on above: Performed By: #### L IPID ####[facility] [place] [address] COLOR STRAW Normal STRAW,YELL OW [facility] Comment on above: Performed By: #### L IPID ####[address] [place] [address] GLUCOSE Negative Normal NEGATIVE [facility] Comment on above: Performed By: #### L IPID ####[address] [place] [address] KETONES Negative Normal NEGATIVE [facility] Comment on above: Performed By: #### L IPID ####[address] [place] [address] LEUKOCYTE ESTERASE Negative Normal NEGATIVE [facility] Comment on above: Performed By: #### L IPID ####[address] [place] [address] NITRITE Negative Normal NEGATIVE [facility] Comment on above: Performed By: #### L IPID ####[address] [place] [address] pH 6.0 Normal 5.0 - 8.0 [facility] Comment on above: Performed By: #### L IPID ####[address] [place] [address] Protein mass conc Negative Normal NEGATIVE [facility] Comment on above: Performed By: #### L IPID ####[address] [place] [address] SPECIFIC GRAVITY 1.005 Normal 1.005 - 1.035 [facility] Comment on above: Performed By: #### L IPID ####[address] [place] [address] UROBILINOGEN <2.0 Normal 0.0 - 1.9 [facility] Comment on above: Performed By: #### L IPID ####[address] [address] URINE CULTURE,BACTERIALon URINE CULTURE,BACTERIAL PATIENT: KATHERINE JUDGE LOCATION: [address]#: [id number] : [birth year] AGE: SEX: F ORDERED BY: LOTUS VANCE: URINE COLLECTED: 09/05/17 01:37ANTIBIOTICS AT ESDRAS.: RECEIVED : 09/05/17 17:28SITE: Straight Cath R E S U L T S URINE CULTURE,BACTERIAL FINAL 09/06/17 09:42 NO GROWTH Normal [facility] Comment on above: Performed By: #### L IPID ####[facility] [place] [address] Daily Progress Note-Infectio us Diseaseon 09-01-2017 Protein mass conc Service: Infectious Disease Subjective Data:KATHERINE JUDGE is a 82 year old Female who is Hospital Day # 7. no fever, no emesis, no diarrhea, no rash. Overnight Events: Patient had an uneventful night. Objective Data: Objective Information:T KWLTEbH5Qjqkz56.04887949/769 4%Date/Time09/01 4: 4: 4: 4: 4:36Range(36.5C - [...] Last Updated: 01-Sep-2017 11:23 by Nela Collado) [facility] Daily Progress Note-Medicine on 09-01-2017 Protein mass conc Service: Medicine Rick bjective Data:KATHERINE JUDGE is a 82 year old Female who is Hospital Day # 7. Katherine is in doing really well. She is in high spirits, looking forward to bed/c. Her appetite has not picked up yet. Overnight Events: Patient had an uneventful night. Objective Data: Objective Information:T JGWHYxU1Qnhzg80.09179330/769 4%Date/Time09/01 4: 4: 4: 4: 4:36Range(36.5C - 37.7C ) (72 - 83 ) (16 - 18 ) (134 - 150 )/ (60 - 77 ) (94%- 97% )Highest temp of 37.7 C was recorded at 08/31 14:41 Pain at Rest reported at 09/01 9:16: 7 Physical Exam: Constitutional: Frail malnourished elderly woman in [facility]: PERLENMT: mucous membranes moist, no apparent [...] laboratory results: Basic Metabolic Panel Trending View Oerfkb31-Roy-7086 08:15:00 30-Aug-2017 05:25:00Glucose, Enkwb264 H 111 ZYH465 139K4.0 3.3 VMZ019 107Bicarbonate, Serum26 27Anion Gap, Serum9 L 8 LBUN5 L 66NJTLK3.54 0.49 LGFR-Non >60 >60GFR->60 >60Calcium, Serum8.4 L [...] 20:32NSTEMI (non-ST elevated myocardial infarction): Entered Date: 45-Smf-730892:25UTI (urinary tract infection), bacterial: Entered Date: 27-Dec-2016 [...] bowel obstruction: Onset Date: 11-Feb-2012, Entered Date: 83-Cue-546000:56Generalized abdominal pain (finding): Entered Date: 11-Feb-2012 18:56 [...] ST Elevation Myocardial Infarction (NSTEMI): Entered Date: 85-Xgi-885210:29Coronary angioplasty/stent (PCI): Entered Date: 12-Dec-2009 15:30Dyspnea: Entered [...] No melena or hematochezia. She presented to [facility] and CT of her abdomen and pelvis was read as showing findings consistentwith small bowel obstruction. She was transferred to [facility] forfurther management. We have been consulted [...] plan is to d/c her back to ID today Nutrition Diagnosis:? Nutrition DiagnosisAgree with dietitian?s [...] Updated: 01-Sep-2017 12:48 by Brionna Llanes) Normal [facility] Daily Progress Note-Melly merino 09-01-2017 Protein mass conc Service: Surgery Sub jective Data:KATHERINE JUDGE is a 82 year old Female who is Hospital Day # 7. Doing well. Urinating and moving bowels, taking miralax daily.Taking PO without problem. Objective Data: Objective Information:T IIZYFgY7Iexgy54.28694676/769 4%Date/Time09/01 4: 4: 4: 4: 4:36Range(36.5C - [...] 20:32NSTEMI (non-ST elevated myocardial infarction): Entered Date: 91-Jvh-862527:25UTI (urinary tract infection), bacterial: Entered Date: 27-Dec-2016 [...] bowel obstruction: Onset Date: 11-Feb-2012, Entered Date: 13-Uce-372148:56Generalized abdominal pain (finding): Entered Date: 11-Feb-2012 18:56 [...] ST Elevation Myocardial Infarction (NSTEMI): Entered Date: 67-Bxi-373776:29Coronary angioplasty/stent (PCI): Entered Date: 12-Dec-2009 15:30Dyspnea: Entered Date: 12-Dec-2009 12:38Coronary atherosclerosis: Entered Date: 12-Dec-2009 12:38Left heart catheterization: Entered Date: 12-Dec-2009 12:36Hypotension: Entered Date: 09-Sep-2009 15:03Sepsis: Entered Date: 01-Aug-2009 02:21Venous thromboembolism: Entered Date: 31-Jul-2009 14:57 Assessment:[facility].Continue miralax daily.Recommend heating pad to right side to address discomfort. Signature/Cosignature/Attest ation:Attending Only - Shared Visit with Advanced Practice ProviderThis is a sharedvisit. I have reviewed the Advanced Practice Provider?s encounter note,approve the Advanced Practice Provider?s documentation, and provide thefollowing additional information from my personal encounter.Comments/ Additional Findingspartial sbo now resolved Electronic Signatures:Vanessa Rodarte (POLICYHOLDER INFORMATION CLERK-DATA STORAGE SPECIALIST) (Signed 01-Sep-2017 13:31)Authored: Service, Subjective Data, Objective Data, Assessment and Plan,Signature/Cosignature/A Jessenia Arora) (Signed 01-Sep-2017 16:03)Authored: Signature/Cosignature/Attest ation Last Updated: 01-Sep-2017 16:03 by Jessenia Tapia) Normal [facility] Discharge Bsxaydf5mq 07-24-2 018 Protein mass conc Discharge Orders:Ant icipated Discharge Date:? Anticipated Discharge Zehq52-Vgj-5130 Problem List: Admitting Dx:? Abdominal pain: Catalog Name: Unspecified abdominal pain Additional Dx:? Essential hypertension: Catalog Name: Essential (primary) hypertension? CAD (coronary artery disease): Catalog Name: Atherosclerotic heart diseaseof [place] coronary artery without angina pectoris? Hypercalcemia: Catalog [...] Significant Events:CABG (2 vessel): Past Surgical History, 36-Wjf-1755Adtdork Catheterization: Past Surgical Historycataract: Past Surgical History, bilateral with lens implantappendectomy: Past Surgical History, 26 years agocomplete hysterectomy: Past Surgical History, 26 years agobilat knee replacement: Past Surgical HistoryCongestive Heart Failure (CHF): Past Medical HistoryChronic anemia: Past Medical HistoryVenous thromboembolism: Past Medical HistorySepsis: Past Medical HistoryCoronary atherosclerosis: Past Medical HistoryNon ST elevation CA: Past Medical History, 95-Lpr-2445TWG: Past Medical HistoryGERD: Past Medical HistoryUTI: Past Medical Historyumbilical hernia: Past Medical Historydiverticulitis: Past Medical Historyosteoporosis: Past Medical Historyanxiety: Past Medical Historydepression: Past Medical Historypost shingles neuropathy: Past Medical Historyhypercholesterolemia: Past Medical Historyherniated disc lumbar area: Past Medical Historyarthritis: Past Medical HistoryHypertension (HTN): Past Medical Historygi bleed: Past Medical Historymitral valve regurgitation: Past Medical Historycolitis: Past Medical HistoryFamily spokesperson: Other, CARLOS Mello [phone] BROTHERNANCY VELOZ [phone] Use: OtherClostridium difficile toxin (C-Diff): Infection Control, 94-Jqd-1389Unjrwlqweem difficile toxin (C-Diff): Infection Control, 27-Aug-2012, camewith ( [facility])Methicillin-Resistant Staph Aureus (MRSA): Infection Control, Mar 2012, sputum.Pneumonia- Pneumococcal polysaccharide vaccine-adult: Immunizations.Influenza- Influenza Virus: Immunizations, 01-Rsr-4491Mlvgujd Information: Contacts, dontae Schuler [phone] Hospital Providers:Provider RoleProvider Name? ConsultingVentura Thacker? ConsultingDiego Obregon? ConsultingNela Collado? Benjy Pruitt? AttendingJessenia Tapia DNAR:? DNAR Statusnone Activity:activity as tolerated. May shower. Diet:? Diet Consistency/Texturemechanica l soft Labs 1:? Lab Test(s)CBC? Date To Be Drawn1 week from discharge? Call Results [phone] Dr. Tapia? Fax Results [phone] Dr. Tapia Hospital Course (Home Care/Gold Form):Hospital [...] Therapy Orders:? Physical Therapy OrdersEval and Treat ([facility]) 3-5times/week Provider Follow Up:? Physician To Follow at Skilled/RehabAttending Physician at Skilled/Rehab Provider FINAL REVIEW of Orders:Final Review:? Final Review of Medication Reconciliation and Orders Completedby Physician? Reviewing ProviderJessenia Tapia MD at 01-Sep-2017 16:04:35 Electronic Signatures:Vanessa Rodarte (POLICYHOLDER INFORMATION CLERK-DATA STORAGE SPECIALIST) (Signed 01-Sep-2017 15:55)Authored: Discharge Orders, Hospital Course (Home Care/Gold Form), Gold FormOrders, Provider FINAL REVIEW of Orders, Gold Form - Bobbin Loose End Finder SummaryMaJessenia vasquez) (Signed 01-Sep-2017 16:04)Authored: Provider FINAL REVIEW of Orders Last Updated: 01-Sep-2017 16:04 by Jessenia Tapia) Normal [facility] HCTon 09-01-2017 Hematocrit Auto Volume Fraction (Bld) Canceled [facility] Hospital Comment on above: Order Comment: TEST HCT WAS CANCELLED, 09/01/2017 16:14 PATIENT DISCHARGED. Performed By: #### H CT ####[id number] [place] [address] HGBon 09-01-2017 Hemoglobin mass conc (Bld) Canceled Normal [facility] Comment on above: Order Comment: TEST HGB WAS CANCELLED, 09/01/2017 16:14 PATIENT DISCHARGED. Performed By: #### H GB ####[facility] [id number] [facility] [place] [address] BASIC METABOLIC PANELon 08-10 Anion gap 3 molar conc 9 mmol/L Low 10 - 20 [facility] Comment on above: Performed By: #### B MP ####[facility] [id number] [facility] [place] [address] Calcium mass conc 8.4 mg/dL Low 8.6 - 10.3 [facility] Comment on above: Performed By: #### B MP ####[facility] [id number] [place] [address] Chloride molar conc 106 mmol/L Normal 98 - 107 [facility] Comment on above: Performed By: #### B MP ####[facility] [id number] [address] [facility] [place] [address] Creatinine mass conc 0.54 mg/dL Normal 0.50 - 1.05 [facility] Comment on above: Performed By: #### B MP ####[facility] [id number] [place] [address] GFR- AM. >60 Normal >60 [facility] Comment on above: Result Comment: CALC ULATIONS OF ESTIMATED GFR ARE PERFORMED USING THE MDRD STUDY EQUATION FOR THE IDMS-TRACEABLE CREATININE METHODS. CLIN CHEM 2007;53:766-72 Performed By: #### B MP ####[facility] [id number] [place] [address] GFR-NON AM. >60 Normal >60 [facility] Comment on above: Performed By: #### B MP ####[facility] [id number] [place] [address] Glucose mass conc 113 mg/dL High 74 - 99 [facility] Comment on above: Performed By: #### B MP ####[facility] [id number] [place] [address] HCO3 molar conc (Bld) 26 mmol/L Normal 21 - 32 [facility] Comment on above: Performed By: #### B MP ####[facility] [id number] [place] [address] Potassium molar conc 4.0 mmol/L Normal 3.5 - 5.3 [facility] Comment on above: Performed By: #### B MP ####[facility] [id number] [place] [address] Sodium molar conc 137 mmol/L Normal 136 - 145 [facility] Comment on above: Performed By: #### B MP ####[facility] [id number] [place] [address] Urea nitrogen mass conc 5 mg/dL Low 6 - 23 [facility] Comment on above: Performed By: #### B MP ####[facility] [id number] [place] [address] Daily Progress Note-Infectio us Diseaseon 08-31-2017 Protein mass conc Service: Infectious Disease Subjective Data:KATHERINE JUDGE is a 82 year old Female who is Hospital Day # 6. no fever, no emesis, no diarrhea, no sob, able to eat. Overnight Events: Patient had an uneventful night. Objective Data: Objective Information:T HQYPEjS2Sxbda32.05262842/649 5%Date/Time08/31 5: 5: 5: 5: 5:00Range(36.5C - [...] Last Updated: 31-Aug-2017 10:30 by Nela Collado) [facility] Daily Progress Note-Medicine on 08-31-2017 Protein mass conc Service: Medicine Rick bjective Data:KATHERINE JUDGE is a 82 year old Female who is Hospital Day # 6. Katherine is in doing really well. She is in high spirits, looking forward to bed/c. Her appetite has not picked up yet. Overnight Events: Patient had an uneventful night. Objective Data: Objective Information:T XLKESjE5Ebbkx88.06024498/649 5%Date/Time08/31 5: 5: 5: 5: 5:00Range(36.5C - 37.4C ) (61 - 101 ) (18 - 18 ) (146 - 160 )/ (64 - 79 )(95% - 96% )Highest temp of 37.4 C was recorded at 08/30 14:04 Pain at Rest reported at 08/31 10:30: 7 Physical Exam: Constitutional: Frail malnourished elderly woman in [facility]: PERLENMT: mucous membranes moist, no apparent [...] laboratory results: Basic Metabolic Panel Trending View Igaukn92-Ysk-0137 08:15:00 30-Aug-2017 05:25:00Glucose, Xqaey487 H 111 CDU801 139K4.0 3.3 ATG534 107Bicarbonate, Serum26 27Anion Gap, Serum9 L 8 LBUN5 L 31WPYDS6.54 0.49 LGFR-Non >60 >60GFR->60 >60Calcium, Serum8.4 L 8.1 L Assessment and Plan:Assessment:82-year-old woman with history of multiple abdominal surgeries who was in herusual state of health when she developed nausea later followed by vomiting,abdominal distention and abdominal pain. She denied fever, chills, sweats. Nodiarrhea. No melena or hematochezia. She presented to [facility] and CT of her abdomen and pelvis was read as showing findings consistentwith small bowel obstruction. She was transferred to [facility] for[facility] management. We have been consulted [...] plan is to d/c her back to [facility] tomorrow. Nutrition Diagnosis:? Nutrition DiagnosisAgree with dietitian?s [...] 12:51 by Maria Del Carmen Andino) Normal [facility] Daily Progress Note-Surgeryo n 08-31-2017 Protein mass conc Consult Type: subseq uent visit/care Service: Surgery Subjective Data:KATHERINE JUDGE is a 82 year old Female who is Hospital Day # 6. No voiced c/o. Overnight Events: Patient had an uneventful night. Objective Data: Objective Information:T VEVGHhC3Gggvh16.77044719/649 5%Date/Time08/31 5: 5: 5: 5: 5:00Range(36.5C - [...] 20:32NSTEMI (non-ST elevated myocardial infarction): Entered Date: 78-Ybk-897783:25UTI (urinary tract infection), bacterial: Entered Date: 27-Dec-2016 [...] bowel obstruction: Onset Date: 11-Feb-2012, Entered Date: 08-Xsp-866433:56Generalized abdominal pain (finding): Entered Date: 11-Feb-2012 18:56 [...] ST Elevation Myocardial Infarction (NSTEMI): Entered Date: 46-Hrf-436687:29Coronary angioplasty/stent (PCI): Entered Date: 12-Dec-2009 15:30Dyspnea: Entered [...] Findingsadv dietkeep on miralax Electronic Signatures:Vanessa Rodarte (POLICYHOLDER INFORMATION CLERK-DATA STORAGE SPECIALIST) (Signed 31-Aug-2017 10:30)Authored: Service, Subjective Data, Objective Data, Assessment and Plan,Signature/Cosignature/A ttestationMaJessenia vasquez) (Signed 31-Aug-2017 10:35)Authored: Signature/Cosignature/Attest ation Last Updated: 31-Aug-2017 10:35 by Jessenia Tapia) [facility] Nutrition Therapy-Assessment on 08-31-2017 Nutrition Therapy-Assessment Assessment Subjective/Objective:Note Type: Assessment Note Authored by: Registered Dietitian NutritionistPager Number: [phone] Nutrition Note:The patient is a 82 year [...] bowel obstruction (disorder):Acute bowel obstruction: Onset Date: 00-Tlx-2968Mqvlwifmslp abdominal pain (finding): Chronic:Fluid overload pulmonary edema:Clostridium difficile infection:Chest pain:Diarrhea: Other Dx/Proc:CHEST PAIN: Description: CHEST PAINUnstable angina/chest pain: Description: Unstable angina/chest painGastrointestinal bleeding: Description: Gastrointestinal bleeding1 Colitis, 2 Abdomen Pain 3 Cholelithiasis: Onset Date: 48-Zlx-2174Sywdc failure: Description: Heart failurePNEUMONIA:Diabetes mellitus: Description: Diabetes [...] bowel obstruction (disorder):Acute bowel obstruction: Onset Date: 91-Noa-0599Koludrhmich abdominal pain (finding):Acute bowel obstruction:Acute bowel obstruction: Objective Information: T RVBEZsY2Fmwxn49.49092940/649 5%Date/Time08/31 5: 5: 5: 5: 5:00Range(36.5C - 37.4C ) (61 - 101 ) (18 - 18 ) (146 - 160 )/ (64 - 79 )(95% - 96% )Highest temp of 37.4 C was recorded at 08/30 14:04 Pain at Rest reported at 08/31 10:30: 7 ---- Intake and Output -----Mn/Dy/Year TimeIntakeOutputNetJu 2017 6:00 [id number] 2017 10:00 vo165Fhy 2017 2:00 [id number] The Intake and Output Totals for the last 24 hours are:GfsjoiRtrskkIbq4935lkivo ull Intake Output Enteral - Oral 360 mL IV Fluids 2409 mL Height/Weight:Height in feet: 5 feetHeight in inches: 0 inch(es)Height in cm: 152.4 centimeter(s)Weight (kg): 40.6BMI (kg/m2): 17.48 square meterDBW (kg): 45%DBW: 90Weight history/ % weight change: 06/18/17 -- 45.9kg2/10/27 -- 46.8kg01/21/17 -- 45.9kg6/ -- 49kg 13% weight loss in 6 months; 11% weight loss in ~3 monthsSignificant Weight Change: yes Recent Lab Results: Results: I have reviewed these laboratory results: Basic Metabolic Panel Trending View Asaaju07-Tqv-4824 08:15:00 30-Aug-2017 05:25:00Glucose, Utsam532 H 111 VCE349 139K4.0 3.3 GWR689 107Bicarbonate, Serum26 27Anion Gap, Serum9 L 8 LBUN5 L 45GYTAH5.54 0.49 LGFR-Non >60 >60GFR->60 >60Calcium, Serum8.4 L 8.1 L Nutrition Labs:Special Chemistry: 03-Jul-2017 10:15, Hemoglobin I1EDrvalkpdly A1C, Level5.3 Diagnosis of Diabetes-Adults Non-Diabetic: < or = 5.6% Increased risk for developing diabetes: 5.7-6.4% Diagnostic of diabetes: > or = 6.5%. Monitoring of Diabetes Age (y) Therapeutic Goal (%) Adults: >18 <7.0 Pediatrics: 13-18 <7.5 7-12 <8.0 0- 6 7.5-8.5 [employer]. Diabetes Care 33(S1), Feb 2009.Estimated Average Ghoyygn521 Current Active Medications/PN:Ondansetron Injectable, (ZOFRAN)DOSE = 4 mg IntraVenous Push Every 4 Hours, PRN Nausea, 89-Iee-5601Dikgiedhn 5% TransDermal, Film (LIDODERM)DOSE = 1 patch TransDermal Every 24 Hours, 65-Ekp-5416Kczqwkevsn Mononitrate Extended Release, Tablet, Extended Release (IMDUR)DOSE = 60 mg Oral At Bedtime, 73-Qfq-6080Xyduxadtbt, Tablet (PRINIVIL, ZESTRIL)DOSE = 10 mg Oral Daily, 79-Iie-3166Ymcoltglkl Tartrate, Tablet (LOPRESSOR)DOSE = 50 mg Oral Every 12 Hours, 02-Nym-0273ejyODCPVQ 5 mg - Acetaminophen 325 mg, Tablet (PERCOCET)DOSE = 1 tablet(s) Oral Every 4 Hours, PRN Pain - Severe (7-10), 59-Pho-1173Lcwbkemvkaip, Enteric Coated Tablet (PROTONIX)DOSE = 40 mg Oral Daily, 39-Pit-2771Nvilitsbhkft Glycol, Powder for Reconstitution (MIRALAX)DOSE = 17 gram(s) Oral Daily, 31-Aug-2017 Nutrition Orders:May Participate in Room Service, YesOrder entered from Admission Screens., 05-Sxx-7089Gqvy Nutritional Supplements, RoutineBoost PuddingFlavor Preference: Vanilla, 2 Times a DaySpecial Instructions: Please send wtih lunch and dinner.AFTERNOON SNACK:Please send pt fresh fruit and cheese for afternoon snack. Thank you!,51-Squ-6364Qngo, Mechanical Soft, 31-Aug-2017 Food/Nutrition Related History:Change in [...] 11:26 by Mikie May (DEEPA HENRIQUEZ) Normal [facility] BASIC METABOLIC PANELon 07-2 Anion gap 3 molar conc 8 mmol/L Low 10 - 20 [facility] Comment on above: Performed By: #### B MP ####[facility] [id number] [facility] [place] [address] Calcium mass conc 8.1 mg/dL Low 8.6 - 10.3 [facility] Comment on above: Performed By: #### B MP ####[facility] REG [id number] [address] [facility] [place] [address] Chloride molar conc 107 mmol/L Normal 98 - 107 [facility] Comment on above: Performed By: #### B MP ####[facility] [id number] [place] [address] Creatinine mass conc 0.49 mg/dL Low 0.50 - 1.05 [facility] Comment on above: Performed By: #### B MP ####[facility] [id number] [place] [address] GFR- AM. >60 Normal >60 [facility] Comment on above: Result Comment: CALC ULATIONS OF ESTIMATED GFR ARE PERFORMED USING THE MDRD STUDY EQUATION FOR THE IDMS-TRACEABLE CREATININE METHODS. CLIN CHEM 2007;53:766-72 Performed By: #### B MP ####[facility] [id number] [facility] [place] [address] GFR-NON AM. >60 Normal >60 [facility] Comment on above: Performed By: #### B MP ####[facility] [id number] [place] [address] Glucose mass conc 111 mg/dL High 74 - 99 [facility] Comment on above: Performed By: #### B MP ####[facility] [id number] [place] [address] HCO3 molar conc (Bld) 27 mmol/L Normal 21 - 32 [facility] Comment on above: Performed By: #### B MP ####[facility] [id number] [place] [address] Potassium molar conc 3.3 mmol/L Low 3.5 - 5.3 [facility] Comment on above: Performed By: #### B MP ####[facility] [id number] [place] [address] Sodium molar conc 139 mmol/L Normal 136 - 145 [facility] Comment on above: Performed By: #### B MP ####[facility] [id number] [place] [address] Urea nitrogen mass conc 14 mg/dL Normal 6 - 23 [facility] Comment on above: Performed By: #### B MP ####[facility] [id number] [place] [address] CBCon 08-30-2017 Erythrocyte distribution width Auto Ratio (RBC) 14.1 % Normal 11.5 - 14.5 [facility] Comment on above: Performed By: #### C BC ####[facility] [id number] [place] [address] Hematocrit Auto Volume Fraction (Bld) 26.5 % Low 36.0 - 46.0 [facility] Comment on above: Performed By: #### C BC ####[facility] [id number] [place] [address] Hemoglobin mass conc (Bld) 8.4 g/dL Low 12.0 - 16.0 [facility] Comment on above: Performed By: #### C BC ####[facility] [id number] [place] [address] MCHC Auto mass conc (RBC) 31.7 g/dL Low 32.0 - 36.0 [facility] Comment on above: Performed By: #### C BC ####[facility] [id number] [place] [address] MCV Auto Entitic volume (RBC) 99 fL Normal 80 - 100 [facility] Comment on above: Performed By: #### C BC ####[facility] [id number] [place] [address] Platelets Auto #/vol (Bld) 272 10*3/uL Normal 150 - 450 [facility] Comment on above: Performed By: #### C BC ####[facility] [id number] [place] [address] RBC Auto #/vol (Bld) 2.67 x10E12/L Low 4.00 - 5.20 [facility] Comment on above: Performed By: #### C BC ####[facility] [id number] [place] [address] WBC Auto #/vol (Bld) 7.8 10*3/uL Normal 4.4 - 11.3 [facility] Comment on above: Performed By: #### C BC ####[facility] REG [id number] [place] [address] Daily Progress Note-Infectio us Diseaseon 08-30-2017 Protein mass conc Service: Infectious Disease Subjective Data:KATHERINE JUDGE is a 82 year old Female who is Hospital Day # 5. no fever, no emesis, no abdominal pain, no diarrhea, no rash. Overnight Events: Patient had an uneventful night. Objective Data: Objective Information:T XZXGXpL8Qywti172524246/8197% Date/Time08/30 5: 5: 5: 5: 5:01Range(36C - [...] reviewed these laboratory results: Basic Metabolic Panel [Hfcuc05-Bpg-5355 05:25:00], Complete Blood Count [Drawn 30-Aug-2017 05:25:00],Magnesium, [...] Updated: 30-Aug-2017 11:14 by Nela Collado) Normal [facility] Daily Progress Note-Medicine on 08-30-2017 Protein mass conc Service: Medicine Rick bjective Data:KATHERINE JUDGE is a 82 year old Female who is Hospital Day # 5. Started on full liquid diet this morning, had multiple looses BMs. Overnight Events: Patient had an uneventful night. Objective Data: Objective Information:T WJSCUcZ0Fafua054475982/8197% Date/Time08/30 5: 5: 5: 5: 5:01Range(36C - [...] No melena or hematochezia. She presented to [facility] and CT of her abdomen and pelvis was read as showing findings consistentwith small bowel obstruction. She was transferred to [facility] for[facility] management. We have been consulted [...] 13:18 by Maria Del Carmen Andino) Normal [facility] Daily Progress Note-Melly merino 08-30-2017 Protein mass conc Service: Surgery Sub jective Data:KATHERINE JUDGE is a 82 year old Female who is Hospital Day # 5. Overnight Events: Patient had an uneventful night. Objective Data: Objective Information:T PCWMRbY6Oitui597812115/8197% Date/Time08/30 5: 5: 5: 5: 5:01Range(36C - [...] 20:32NSTEMI (non-ST elevated myocardial infarction): Entered Date: 27-Mud-772952:25UTI (urinary tract infection), bacterial: Entered Date: 27-Dec-2016 [...] bowel obstruction: Onset Date: 11-Feb-2012, Entered Date: 64-Rkw-426477:56Generalized abdominal pain (finding): Entered Date: 11-Feb-2012 18:56 [...] ST Elevation Myocardial Infarction (NSTEMI): Entered Date: 06-Ekq-474829:29Coronary angioplasty/stent (PCI): Entered Date: 12-Dec-2009 15:30Dyspnea: Entered Date: 12-Dec-2009 12:38Coronary atherosclerosis: Entered Date: 12-Dec-2009 12:38Left heart catheterization: Entered Date: 12-Dec-2009 12:36Hypotension: Entered Date: 09-Sep-2009 15:03Sepsis: Entered Date: 01-Aug-2009 02:21Venous thromboembolism: Entered Date: 31-Jul-2009 14:57 Assessment:improving adv diet slowly Electronic Signatures:Jessenia Tapia) (Signed 30-Aug-2017 11:46)Authored: Service, Subjective Data, Objective Data, Assessment and Plan,Signature/Cosignature/A ttestation Last Updated: 30-Aug-2017 11:46 by Jessenia Tapia) Normal [facility] MAGNESIUMon 08-30-2017 Magnesium mass conc 1.48 mg/dL Low 1.60 - 2.40 [facility] Comment on above: Performed By: #### M G ####[facility] REG [id number] [place] [address] CBCon 08-29-2017 Erythrocyte distribution width Auto Ratio (RBC) 14.0 % Normal 11.5 - 14.5 [facility] Comment on above: Performed By: #### C BC ####[facility] [id number] [place] [address] Hematocrit Auto Volume Fraction (Bld) 31.5 % Low 36.0 - 46.0 [facility] Comment on above: Performed By: #### C BC ####[facility] [id number] [place] [address] Hemoglobin mass conc (Bld) 10.0 g/dL Low 12.0 - 16.0 [facility] Comment on above: Performed By: #### C BC ####[facility] [id number] [place] [address] MCHC Auto mass conc (RBC) 31.7 g/dL Low 32.0 - 36.0 [facility] Comment on above: Performed By: #### C BC ####[facility] [id number] [place] [address] MCV Auto Entitic volume (RBC) 99 fL Normal 80 - 100 [facility] Comment on above: Performed By: #### C BC ####[facility] [id number] [place] [address] Platelets Auto #/vol (Bld) 338 10*3/uL Normal 150 - 450 [facility] Comment on above: Performed By: #### C BC ####[facility] [id number] [place] [address] RBC Auto #/vol (Bld) 3.18 x10E12/L Low 4.00 - 5.20 [facility] Comment on above: Performed By: #### C BC ####[facility] [id number] [place] [address] WBC Auto #/vol (Bld) 13.1 10*3/uL High 4.4 - 11.3 [facility] Comment on above: Performed By: #### C BC ####[facility] [id number] [place] [address] COMPREHENSIVE PANELon 2017 Albumin mass conc 3.0 g/dL Low 3.4 - 5.0 [facility] Comment on above: Performed By: #### C MP ####[facility] [id number] [place] [address] ALP enzyme act/vol 65 U/L Normal 33 - 136 [facility] Comment on above: Performed By: #### C MP ####[facility] [id number] [place] [address] ALT enzyme act/vol 14 U/L Normal 7 - 45 [facility] Comment on above: Result Comment: Daniel ents treated with Sulfasalazine may generate falsely decreased results for ALT. Performed By: #### C MP ####[facility] [id number] [place] [address] Anion gap 3 molar conc 11 mmol/L Normal 10 - 20 [facility] Comment on above: Performed By: #### C MP ####[facility] [id number] [place] [address] AST enzyme act/vol 16 U/L Normal 9 - 39 [facility] Comment on above: Performed By: #### C MP ####[facility] [id number] [place] [address] Bilirubin mass conc 0.5 mg/dL Normal 0.0 - 1.2 [facility] Comment on above: Performed By: #### C MP ####[facility] [id number] [place] [address] Calcium mass conc 8.7 mg/dL Normal 8.6 - 10.3 [facility] Comment on above: Performed By: #### C MP ####[facility] [id number] [place] [address] Chloride molar conc 105 mmol/L Normal 98 - 107 [facility] Comment on above: Performed By: #### C MP ####[facility] [id number] [place] [address] Creatinine mass conc 0.59 mg/dL Normal 0.50 - 1.05 [facility] Comment on above: Performed By: #### C MP ####[facility] [id number] [place] [address] GFR- AM. >60 Normal >60 [facility] Comment on above: Result Comment: CALC ULATIONS OF ESTIMATED GFR ARE PERFORMED USING THE MDRD STUDY EQUATION FOR THE IDMS-TRACEABLE CREATININE METHODS. CLIN CHEM 2007;53:766-72 Performed By: #### C MP ####[facility] [id number] [place] [address] GFR-NON AM. >60 Normal >60 [facility] Comment on above: Performed By: #### C MP ####[facility] [id number] [place] [address] Glucose mass conc 115 mg/dL High 74 - 99 [facility] Comment on above: Performed By: #### C MP ####[facility] [id number] [place] [address] HCO3 molar conc (Bld) 27 mmol/L Normal 21 - 32 [facility] Comment on above: Performed By: #### C MP ####[facility] [id number] [place] [address] Potassium molar conc 3.8 mmol/L Normal 3.5 - 5.3 [facility] Comment on above: Performed By: #### C MP ####[facility] [id number] [place] [address] Protein mass conc 6.5 g/dL Normal 6.4 - 8.2 [facility] Comment on above: Performed By: #### C MP ####[facility] [id number] [place] [address] Sodium molar conc 139 mmol/L Normal 136 - 145 [facility] Comment on above: Performed By: #### C MP ####[facility] [id number] [place] [address] Urea nitrogen mass conc 43 mg/dL High 6 - 23 [facility] Comment on above: Performed By: #### C MP ####[facility] [id number] [place] [address] Daily Progress Note-Infectio us Diseaseon 08-29-2017 Protein mass conc Service: Infectious Disease Subjective Data:KATHERINE JUDGE is a 82 year old Female who is Hospital Day # 4. no fever, had BM per the nurses, the hx is not reliable. Overnight Events: Patient had an uneventful night. Objective Data: Objective Information:T AUEEVsH4Qwkva80.496725459/75 95%Date/Time08/29 10: 10: 10: 10: 10:20Range(36.3C - [...] reviewed these laboratory results: Comprehensive Metabolic Panel [Uewcv47-Gcy-3420 06:05:00], Complete Blood Count [Drawn 29-Aug-2017 06:05:00],Magnesium, [...] Updated: 29-Aug-2017 10:55 by Nela Collado) Normal [facility] Daily Progress Note-Medicine on 08-29-2017 Protein mass conc Service: Medicine Rick bjective Data:KATHERINE JUDGE is a 82 year old Female who is Hospital Day # 4. Still be NPO, has not moved her bowels or had flatus. NG is out.She is more withdrawn today. Did not have a good night sleep. Objective Data: Objective Information:T ULXRXbS3Utzll49.51909901/799 4%Date/Time08/29 5: 5: 5: 5: 5:55Range(36.3C - [...] No melena or hematochezia. She presented to [facility] and CT of her abdomen and pelvis was read as showing findings consistentwith small bowel obstruction. She was transferred to [facility] for[facility] management. We have been consulted [...] 10:08 by Maria Del Carmen Andino) Normal [facility] Daily Progress Note-Surgeryo n 08-29-2017 Protein mass conc Service: Surgery Sub jective Data:KATHERINE JUDGE is a 82 year old Female who is Hospital Day # 4. Overnight Events: Patient had an uneventful night.Additional Information:pt very sleepy this amshe apparently was up all night and had multiple loose stools over night Objective Data: Objective Information:T CHNKIwL9Ggxkm12.111736064/75 95%Date/Time08/29 10: 10: 10: 10: 10:20Range(36.3C - [...] 20:32NSTEMI (non-ST elevated myocardial infarction): Entered Date: 21-Gep-311313:25UTI (urinary tract infection), bacterial: Entered Date: 27-Dec-2016 [...] bowel obstruction: Onset Date: 11-Feb-2012, Entered Date: 15-Eys-812332:56Generalized abdominal pain (finding): Entered Date: 11-Feb-2012 18:56 [...] ST Elevation Myocardial Infarction (NSTEMI): Entered Date: 33-Fag-043158:29Coronary angioplasty/stent (PCI): Entered Date: 12-Dec-2009 15:30Dyspnea: Entered Date: 12-Dec-2009 12:38Coronary atherosclerosis: Entered Date: 12-Dec-2009 12:38Left heart catheterization: Entered Date: 12-Dec-2009 12:36Hypotension: Entered Date: 09-Sep-2009 15:03Sepsis: Entered Date: 01-Aug-2009 02:21Venous thromboembolism: Entered Date: 31-Jul-2009 14:57 Assessment:resolving sbodehydrationtry clears Electronic Signatures:Jessenia Tapia) (Signed 29-Aug-2017 12:02)Authored: Service, Subjective Data, Objective Data, Assessment and Plan,Signature/Cosignature/A ttestation Last Updated: 29-Aug-2017 12:02 by Jessenia Tapia) Normal [facility] MAGNESIUMon 08-29-2017 Magnesium mass conc 1.68 mg/dL Normal 1.60 - 2.40 [facility] Comment on above: Performed By: #### M G ####[facility] [id number] [place] [address] OCCULT BLOOD TEST,STOOLon OCCULT BLOOD,STOOL Positive Abnormal Negative [facility] Comment on above: Performed By: #### O CCB1 ####[facility] [place] [id number] [place] [id number] Daily Progress Note-Infectio us Diseaseon 08-28-2017 Protein mass conc Service: Infectious Disease Subjective Data:KATHERINE JUDGE is a 82 year old Female who is Hospital Day # 3. no fever, no BM, no abdominal hall, no sob, no rash. Overnight Events: Patient had an uneventful night. Objective Data: Objective Information:T QQGNMmT8Qkfmq05.48545096/739 8%Date/Time08/28 7: 7: 7: 7: 7:51Range(36.8C - [...] reviewed these laboratory results: Complete Blood Count [[id number]-[id number] 06:33:00], Basic Metabolic Panel [Drawn 27-Aug-2017 06:33:00]. [...] Updated: 28-Aug-2017 09:04 by Nela Collado) Normal [facility] Daily Progress Note-Medicine on 08-28-2017 Protein mass conc Service: Medicine Rick bjective Data:KATHERINE JUDGE is a 82 year old Female who is Hospital Day # 3. Feeling ok today. Still has NG tube. After a suppository had a small BM. Doesnot pass the flatus. Objective Data: Objective Information:T NHZKRjM4Kvjta94.32933594/849 3%Date/Time08/28 12: 12: 12: 12: 12:13Range(36.7C - [...] No melena or hematochezia. She presented to [facility] and CT of her abdomen and pelvis was read as showing findings consistentwith small bowel obstruction. She was transferred to [facility] for[facility] management. We have been consulted [...] 12:43 by Maria Del Carmen Andino) Normal [facility] Daily Progress Note-Melly n 08-28-2017 Protein mass conc Service: Surgery Sub jective Data:KATHERINE JUDGE is a 82 year old Female who is Hospital Day # 3. Overnight Events: Patient had an uneventful night.Additional Information:pt had a BM with suppository Objective Data: Objective Information:T QEEBLwR0Azwmk85.69346316/869 2%Date/Time08/28 14: 14: 14: 14: 14:55Range(36.6C - [...] 20:32NSTEMI (non-ST elevated myocardial infarction): Entered Date: 63-Agy-323050:25UTI (urinary tract infection), bacterial: Entered Date: 27-Dec-2016 [...] bowel obstruction: Onset Date: 11-Feb-2012, Entered Date: 50-Vfq-384809:56Generalized abdominal pain (finding): Entered Date: 11-Feb-2012 18:56 [...] ST Elevation Myocardial Infarction (NSTEMI): Entered Date: 96-Jng-733000:29Coronary angioplasty/stent (PCI): Entered Date: 12-Dec-2009 15:30Dyspnea: Entered Date: 12-Dec-2009 12:38Coronary atherosclerosis: Entered Date: 12-Dec-2009 12:38Left heart catheterization: Entered Date: 12-Dec-2009 12:36Hypotension: Entered Date: 09-Sep-2009 15:03Sepsis: Entered Date: 01-Aug-2009 02:21Venous thromboembolism: Entered Date: 31-Jul-2009 14:57 Assessment:looks bettertry to d/c ngt later Electronic Signatures:Jessenia Tapia) (Signed 28-Aug-2017 15:04)Authored: Service, Subjective Data, Objective Data, Assessment and Plan,Signature/Cosignature/A ttestation Last Updated: 28-Aug-2017 15:04 by Jessenia Tapia) Normal [facility] ABDOMEN AP VIEWon 08-27-2017 ABDOMEN AP VIEW Name: KATHERINE JUDGE STUDY:TH ABDOMEN AP VIEW; 08/27/2017 9:11 am INDICATION:Signs/Symptoms: abdominal pain with nausea/vomiting. COMPARISON:07/04/2014 ORDERING CLINICIAN:VANESSA RODARTE TECHNIQUE:1 views of the abdomen FINDINGS:NG tube terminates in the gastric body. A no dilated loops of bowel.Mild scattered stool in the colon. IMPRESSION:No dilated loops of bowel.Electronically signed by: BETITO MANN MD Normal [facility] BASIC METABOLIC PANELon 08-09 Anion gap 3 molar conc 11 mmol/L Normal 10 - [facility] Comment on above: Performed By: #### B MP ####[facility] REG [id number] [place] [address] Calcium mass conc 9.0 mg/dL Normal 8.6 - 10.3 [facility] Comment on above: Performed By: #### B MP ####[facility] [id number] [place] [address] Chloride molar conc 97 mmol/L Low 98 - 107 [facility] Comment on above: Performed By: #### B MP ####[facility] [id number] [place] [address] Creatinine mass conc 0.54 mg/dL Normal 0.50 - 1.05 [facility] Comment on above: Performed By: #### B MP ####[facility] [id number] [place] [address] GFR- AM. >60 Normal >60 [facility] Comment on above: Result Comment: CALC ULATIONS OF ESTIMATED GFR ARE PERFORMED USING THE MDRD STUDY EQUATION FOR THE IDMS-TRACEABLE CREATININE METHODS. CLIN CHEM 2007;53:766-72 Performed By: #### B MP ####[facility] [id number] [place] [address] GFR-NON AM. >60 Normal >60 [facility] Comment on above: Performed By: #### B MP ####[facility] [id number] [place] [address] Glucose mass conc 132 mg/dL High 74 - 99 [facility] Comment on above: Performed By: #### B MP ####[facility] [id number] [place] [address] HCO3 molar conc (Bld) 38 mmol/L High 21 - 32 [facility] Comment on above: Performed By: #### B MP ####[facility] [id number] [place] [address] Potassium molar conc 3.2 mmol/L Low 3.5 - 5.3 [facility] Comment on above: Performed By: #### B MP ####[facility] [id number] [place] [address] Sodium molar conc 143 mmol/L Normal 136 - 145 [facility] Comment on above: Performed By: #### B MP ####[facility] [id number] [place] [address] Urea nitrogen mass conc 9 mg/dL Normal 6 - 23 [facility] Comment on above: Performed By: #### B MP ####[facility] [id number] [place] [address] CBCon 08-27-2017 Erythrocyte distribution width Auto Ratio (RBC) 14.2 % Normal 11.5 - 14.5 [facility] Comment on above: Performed By: #### C BC ####[facility] [id number] [place] [address] Hematocrit Auto Volume Fraction (Bld) 36.2 % Normal 36.0 - 46.0 [facility] Comment on above: Performed By: #### C BC ####[facility] [id number] [place] [address] Hemoglobin mass conc (Bld) 11.7 g/dL Low 12.0 - 16.0 [facility] Comment on above: Performed By: #### C BC ####[facility] [id number] [place] [address] MCHC Auto mass conc (RBC) 32.3 g/dL Normal 32.0 - 36.0 [facility] Comment on above: Performed By: #### C BC ####[facility] [id number] [place] [address] MCV Auto Entitic volume (RBC) 98 fL Normal 80 - 100 [facility] Comment on above: Performed By: #### C BC ####[facility] [id number] [place] [address] Platelets Auto #/vol (Bld) 323 10*3/uL Normal 150 - 450 [facility] Comment on above: Performed By: #### C BC ####[facility] [id number] [place] [address] RBC Auto #/vol (Bld) 3.70 x10E12/L Low 4.00 - 5.20 [facility] Comment on above: Performed By: #### C BC ####[facility] [id number] [place] [address] WBC Auto #/vol (Bld) 10.5 10*3/uL Normal 4.4 - 11.3 [facility] Comment on above: Performed By: #### C ####[facility] [id number] [place] [address] Daily Progress Note-Cardioemory linn 08-27-2017 Protein mass conc Consult Type: [...] an uneventful night. Objective Data: Objective Information:T UXTEYzH5Ealuw92.05161259/789 7%Date/Time08/27 14: 14: 14: 14: 14:57Range(36.7C - [...] contusions or wounds, noclubbingNeurological: alert and oriented r4Ofoscrgvvrapi: Appropriate mood and behaviorSkin: Tatums, fair turgor, Warm and dry, no lesions, [...] 20:32NSTEMI (non-ST elevated myocardial infarction): Entered Date: 39-Mhf-002144:25UTI (urinary tract infection), bacterial: Entered Date: 27-Dec-2016 [...] bowel obstruction: Onset Date: 11-Feb-2012, Entered Date: 56-Inx-381761:56Generalized abdominal pain (finding): Entered Date: 11-Feb-2012 18:56 [...] ST Elevation Myocardial Infarction (NSTEMI): Entered Date: 88-Ifp-111674:29Coronary angioplasty/stent (PCI): Entered Date: 12-Dec-2009 15:30Dyspnea: Entered [...] Objective Data, Assessment and Plan,Signature/Cosignature/A ttestationApril Nam (POLICYHOLDER INFORMATION CLERK-DATA STORAGE SPECIALIST) (Signed 27-Aug-2017 15:41)Authored: Service, Subjective Data, Objective Data, Assessment and Plan,Signature/Cosignature/A ttestation Last Updated: 28-Aug-2017 06:59 by Ventura Thacker) Normal [facility] Daily Progress Note-Infectio us Diseaseon 08-27-2017 Protein mass conc Service: Infectious Disease Subjective Data:KATHERINE JUDGE is a 82 year old Female who is Hospital Day # 2. no fever, nauseated, abdominal pain, no emesis, no diarrhea. Overnight Events: Patient had an uneventful night. Objective Data: Objective Information:T BHPFGkY5Geypb04.29341284/539 7%Date/Time08/27 6: 6: 6: 6: 6:42Range(36.7C - [...] reviewed these laboratory results: Complete Blood Count [[id number] 06:33:00], Basic Metabolic Panel [Drawn 27-Aug-2017 06:33:00],Magnesium, Serum [Drawn 27-Aug-2017 06:33:00], Urinalysis [Drawn 85-Wvj-908322:47:00], Urinalysis, Microscopic [Drawn 25-Aug-2017 18:47:00], Lactate, Level[Drawn [...] Updated: 27-Aug-2017 09:31 by Nela Collado) Normal [facility] Daily Progress Note-Medicine on 08-27-2017 Protein mass conc Service: Medicine Rick bjective Data:KATHERINE JUDGE is a 82 year old Female who is Hospital Day # 2. Reports feeling better today, less abdominal distension after NG was placed. Noflatus yet. Overnight Events: Patient had an uneventful night. Objective Data: Objective Information:T PSMBWqS3Jibsy599244148/6597% Date/Time08/27 11: 11: 6: 11: 11:11Range(36.7C - [...] No melena or hematochezia. She presented to [facility] and CT of her abdomen and pelvis was read as showing findings consistentwith small bowel obstruction. She was transferred to [facility] for[facility] management. We have been consulted [...] 12:54 by Maria Del Carmen Andino) Normal [facility] Daily Progress Note-Samarao n 08-27-2017 Protein mass conc Service: Surgery Sub jective Data:KATHERINE JUDGE is a 82 year old Female who is Hospital Day # 2. Additional Information:no flatus yet Objective Data: Objective Information:T HPXOZgJ9Zoihj51.86629013/539 7%Date/Time08/27 6: 6: 6: 6: 6:42Range(36.7C - [...] 20:32NSTEMI (non-ST elevated myocardial infarction): Entered Date: 83-Yih-581812:25UTI (urinary tract infection), bacterial: Entered Date: 27-Dec-2016 [...] bowel obstruction: Onset Date: 11-Feb-2012, Entered Date: 49-Qen-425105:56Generalized abdominal pain (finding): Entered Date: 11-Feb-2012 18:56 [...] ST Elevation Myocardial Infarction (NSTEMI): Entered Date: 66-Col-889426:29Coronary angioplasty/stent (PCI): Entered Date: 12-Dec-2009 15:30Dyspnea: Entered Date: 12-Dec-2009 12:38Coronary atherosclerosis: Entered Date: 12-Dec-2009 12:38Left heart catheterization: Entered Date: 12-Dec-2009 12:36Hypotension: Entered Date: 09-Sep-2009 15:03Sepsis: Entered Date: 01-Aug-2009 02:21Venous thromboembolism: Entered Date: 31-Jul-2009 14:57 Assessment:by my interpretation kub looks betterkeep ngtt suppository Electronic Signatures:Jessenia Tapia) (Signed 27-Aug-2017 09:36)Authored: Service, Subjective Data, Objective Data, Assessment and Plan,Signature/Cosignature/A ttestation Last Updated: 27-Aug-2017 09:36 by Jessenia Tapia) Normal [facility] EMR ADDONon 08-27-2017 ADDON CONFIRMATION REQUEST REC'D Normal [facility] Comment on above: Performed By: #### E MRAD ####[id number] [place] [address] MAGNESIUMon 08-27-2017 Magnesium mass conc 1.95 mg/dL Normal 1.60 - 2.40 [facility] Comment on above: Performed By: #### M G ####[id number] [place] [address] Admission Risk Screen - Adul ton 08-26-2017 [...] Directive Medicalyes? Advance Directive typeDurable Power of Pharmacoepidemiologist for Healthcare? Durable Power of Pharmacoepidemiologist AvailabilityDPOA not available now? Durable Power of Pharmacoepidemiologist [id number]? Durable Power of Pharmacoepidemiologist contact (name and number)Ganga Judge? Advance Directive [...] instruction; written material? Cultural Considerationsnone? Developmental Considerationsnone? Baptist Considerationsnone Learning Assessment (Other Learner):? Other learner [...] Spiritual Screen:? Are there any cultural, spiritual, jain practices/values/needs that areimportant for us to know?no CAGE:Is this an injured patient at a Trauma Center ([facility] [place]): no Vaccinations:Vaccination - Influenza Vaccination Screen:? Is [...] 26-Aug-2017 04:19 by Sylvain Gilbert (CINTHYA) Normal [facility] CHEST 1 VIEWon 08-26-2017 CHEST 1 [...] hernia.Electronically signed by: NYLA PARKER DO Normal [facility] CHEST 1 VIEW Name: DERICK KATHERINE STUDY:TH CHEST 1 VIEW; 08/26/2017 1:19 am [...] Electronically signed by: LEANN PATEL MD Normal [facility] CHEST 1 VIEW Name: KATHERINE [...] disease.Electronically signed by: LEANN PATEL MD Normal [facility] Consult-Cardiologyon 018 Consult-Cardiology Service:Service: Car diology Consult:Reason: preop clearance HTN History of Present Illness:HPI:This is an 82-year-old female with history of multiple abdominalsurgeries, 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 [facility] ago with FTT, nausea, dehydration, and RADHA.Discharged to SNF. [facility] yesterday developed abdominal discomfort andvomiting. Appetite not as goo yesterday. [facility] has had daily BM's. Statesabd. discomfort and distention.Denies CP, fever, chills, no abd blood in stools. Sent to [facility] ER, CT ofher abdomen and pelvis was read as showing findings consistent with small bowelobstruction. She was transferred to [facility] for furthermanagement.Pt is known to me, h/o HTN, Aortic stenosis, CABG. She denies any CHF or ACSsxs.Troponin x1 0.02.BP elevated 188/90 - states no meds 24 hrs d/t N&V and abd discomfort. PMH: coronary artery disease, status post 2012 [...] Confusion? Restoril: Confusion Objective: Objective Information: T NFMXYkQ8Qheym004399077/6996% Date/Time08/26 16:257 16:29718 5:08718 16:18 16:29Range(36C - 37.8C ) (78 - 95 ) (16 - 16 ) (146 - 185 )/ (69 - 96 ) (85% -96% )Highest temp of 37.8 C was recorded at 08/26 14:18 Weights7 4:19: Weight in kg (Weight (kg)) 40.6718 [...] andreflexes, normal strengthPsychological: Appropriate mood and behaviorSkin: Tatums, fair turgor, Warm and dry, no lesions, [...] Urine YELLOW Reference Range: STRAW,YELLOWAppearance, Urine HAZYSpecific [place], Urine 1.013pH, Urine 6.0Protein, Urine NEGATIVEGlucose, Urine [...] 22.2 cm2LA Area A2C: 19.3 cm2LA [place] A4C: 5.9 cmLA [place] A2C: 5.4 cmLA Volume Index: 40.5 ml/m2RA VOLUME BY A/L METHOD: Normal Ranges:RA Vol A4C: 17.8 ml (8.3-19.5ml)RA Vol Index A4C: 11.5 ml/m2RA Area A4C: 9.6 cm2RA [place] A4C: 4.4 cmM-MODE MEASUREMENTS: Normal Ranges:Ao Root: [...] amount drg.Possible need for ORprevious records from [facility] obtained and reviewedOffice records obtained and reviewed. [...] Updated: 26-Aug-2017 18:16 by Ventura Thacker) Normal [facility] Consult-Infectious Diseaseon 08-26-2017 Consult-Infectious Disease Service:Service: [...] bowel obstruction (disorder):Acute bowel obstruction: Onset Date: 98-Oyu-3698Kuzywmjyorf abdominal pain (finding):Acute bowel obstruction:Acute bowel obstruction: [...] Confusion? Restoril: Confusion Objective: Objective Information: T [id number]/9390% Date/Time08/26 5: 5: 5: 5: 5:08Range(36C - [...] have reviewed these laboratory results: Urinalysis [Drawn 31-Phi-290870:47:00], Urinalysis, Microscopic [Drawn 25-Aug-2017 18:47:00], Lactate, Level[Drawn 25-Aug-2017 18:46:00], Comprehensive Metabolic Panel [Drawn 59-Jqr-237352:36:00], Lipase, Serum [Drawn 25-Aug-2017 18:36:00], Troponin I, Serum [[id number] 18:36:00], Complete Blood Count + Differential [Drawn 44-Ipa-588633:15:00], Basic Metabolic Panel [Drawn 21-Aug-2017 16:22:00], Complete [...] Last Updated: 26-Aug-2017 09:12 by Nela Collado) [facility] Consult-Medicineon 8 Consult-Medicine Service:Service: Med [...] diarrhea. No melena orhematochezia. She presented to [facility] ED and CT of her abdomenand pelvis was read as showing findings consistent with small bowelobstruction. She was transferred to [facility] for furthermanagement. We have been consulted [...] bowel obstruction (disorder):Acute bowel obstruction: Onset Date: 08-Mkd-4855Nijbwooyimu abdominal pain (finding):Acute bowel obstruction: Review Family/Social [...] Ativan: Confusion? Restoril: Confusion Objective: Objective Information:T ITHJKbL5Xvudu34.96911504/959 0%Date/Time08/26 4: 4: 4: 4: 4:19Range(36.6C - [...] Urine YELLOW Reference Range: STRAW,YELLOWAppearance, Urine HAZYSpecific [place], Urine 1.013pH, Urine 6.0Protein, Urine NEGATIVEGlucose, Urine [...] Updated: 26-Aug-2017 09:58 by Diego Obregon) Normal [facility] Discharge Planning Noteon Discharge Planning Note Discharge Needs Assessment:? Discharge Planning Assessment Ltee65-Nsc-3880? Readmission Within the Last 30 Dayscurrent reason for admission unrelated toprevious admission? Primary Care PhysicianDrLeigh Garnett Adult Information:? Reason for Admission as Stated by Patientsbo? Primary Support Person During HospitalizationCarlos -[phone]? Lives Withspouse? Financial Concernsnone Patient Learning:? Factors that Impact Ability to Learnnone(1) Other Factors:? Functional Screen: In the recent/past 2-4 weeks, patient or family havenoticedno issues that require a rehabilitation consult at this time(2) Discharge Planning:Discharge Plannin08/26/17 A&OX3. Lives with [facility], [facility]. Normally active in ADL, but very weak after surgery. Hxmultiple abd surgeries. N/G light green returns. NPO, has been N&V be foreadmit. Plan return to SNF when medically cleared. Discussed patient plan ofcare and discharge plans during interdisciplinary rounds. Meghan Haro RN-JANAY 08/27/17 1022 DSC: [facility] SNF/Return. ADOD iswithin 2 days. Medicare ins. Awaiting facility response. Yaneth JordanDischarge Loan Representative - [phone] 08/27/17 1213 DSC: Response received from the following skilled nursingfacilities: [facility]. Yaneth Jordan DischargeSupport Coordinator - [phone] 08/27/17 N/G, NPO. for KUB today. Does have 55 days left of snf benefit.[facility] able to accept pt when she is medically ready. Will follow ptthrough hospital stay and adjust plan as needed. Discussed patient plan ofcare and discharge plans during interdisciplinary rounds. Meghan Haro RN-JANAY 08/28/17 1241 DSC: I attached updates for the facility to review. [place] Discharge Loan Representative - [phone] 08/29/17 1011 DSC_ Updates attached to the facility for reviewEmilia Brand Discharge Loan Representative, 08/31/17 0919 DSC: Updates attached to the facility for review. Olga Dooleyge Loan Representative [phone] 08/31/17 Should be ready for d/c tomorrow. Diet full liquid and will advance.Will follow pt through hospital stay and adjust plan as needed. Discussedpatient plan of care and discharge plans during interdisciplinary rounds. Virginia MENDES-JANAY 09/01/17 1456 DSC: Final orders attached and sent to facility. No 7000 needed.Olga Lehman Discharge Loan Representative [phone] 09/01/17 1451 PCN: Executive Sous Chef/Industrial Laborer notified transport set [id number] picker packer, via stretcher with [facility] providing transport.Keyana Haro, Billing Customer Service Representative, Final Disposition/Discharge:Dispos ition/Discharge Information: Discharge/Transfer Information:? Discharge/Transfer Date/Werr82-Aeo-2832 15:53? Discharge Modestretcher? Transportation Methodtransportation service? Valuables/Medications/Belong ings Returnedyes? Belongings CommentDischarged to SNF. IV out, tip intact. All questionsanswered. Electronic Signatures:Olga Lehman (COOR) (Signed 01-Sep-2017 14:56)Authored: Discharge Planning Elida Coats (RN) (Signed 01-Sep-2017 15:53)Authored: Final Disposition/DischargeBoron, Emilia (COOR) (Signed 29-Aug-2017 10:11)Authored: Discharge Planning CiscoPenelope Haro (CLIN COOR) (Signed 31-Aug-2017 11:56)Authored: Discharge Planning CiscoAlex Haro (COOR) (Signed 01-Sep-2017 15:04)Authored: Discharge Planning Yaneth Larson (COOR) (Signed 28-Aug-2017 12:41)Authored: Discharge Planning Note Last Updated: 01-Sep-2017 15:53 by Elida Calderón (RN) References:1. Data Referenced From 5. Education 08/26/2017 04:14 AM2. Data Referenced From Admission Risk Screen - Adult 08/26/2017 04:14 AM Normal [facility] History and Physicalon 08-26 History and Physical History of Present Illness:Admission Reason: SBOHPI:82 y.o. WF who had been in her usual state of health until about , when she developed nausea, followed by vomiting, distention andabdominal pain. No reports of fever or chills. No c/o diarrhea, melena orhematochezia. She initially present to [facility] ER. Underwent CT of abdomen pelvis that showed findings consistent with SBO. Transferred to [facility] for further management, and admitted to [...] bowel obstruction (disorder):Acute bowel obstruction: Onset Date: 36-Asx-5030Fxvzh bowel obstruction:Acute bowel obstruction:Generalized abdominal pain (finding): [...] Pruritus, Rash, Ulcer Objective: Objective Information: T [id number]/9390% Date/Time08/26 5: 5: 5:0808/26 5:0808/26 5:08Range(36C - 36.6C ) (84 - 88 [...] Urine YELLOW Reference Range: STRAW,YELLOWAppearance, Urine HAZYSpecific [place], Urine 1.013pH, Urine 6.0Protein, Urine NEGATIVEGlucose, Urine [...] ResultValueLab Comment: Drop off Donald ZAIDI Anngee #[id number] 08/21/2017 psteiGlucose, Serum 108 HNA 139K 4.2CL [...] bowel obstruction (disorder):Acute bowel obstruction: Onset Date: 12-Rss-7313Kastlxfvjwk abdominal pain (finding): Chronic:Fluid overload pulmonary edema:Clostridium difficile infection:Chest pain:Diarrhea: Other Dx/Proc:CHEST PAIN: Description: CHEST PAINUnstable angina/chest pain: Description: Unstable angina/chest painGastrointestinal bleeding: Description: Gastrointestinal bleeding1 Colitis, 2 Abdomen Pain 3 Cholelithiasis: Onset Date: 34-Scg-1518Wurom failure: Description: Heart failurePNEUMONIA:Diabetes mellitus: Description: Diabetes [...] care, and discharge plan. Electronic Signatures:Vanessa Rodarte (POLICYHOLDER INFORMATION CLERK-DATA STORAGE SPECIALIST) (Signed 26-Aug-2017 12:20)Authored: History of Present Illness, Comorbidities, Past Medical/SurgicalHistory, Social History, Allergies, Review of Systems, Objective, Assessmentand Plan, Signatures/Attestation/Certi ficationJessenia Tapia) (Signed 26-Aug-2017 14:08)Authored: Signatures/Attestation/Certi fication Last Updated: 26-Aug-2017 14:08 by Jessenia Tapia) Normal [facility] Patient Profile - Adult v2on 08-26-2017 Protein mass conc Profile:Initial Info :How to be AddressedAliceSpoken Language PreferredEnglish (1)Are you currently using the Personal Electronic Health Record or MYCAREnoAre you interested in learning more about [facility] for the management of yourhealthyes, information providedStated Reason for AdmissionAbdominal pain and nausea, got worseArrived Fromemergency departmentPatient BelongingsnoneMedications Brought to [facility] General Health:Weight in kg40.6 kilogram(s)Weight in lbs89.6 pound(s)Height in feet5 feetHeight in inches0 inch(es)Height in cm152.4 centimeter(s)BMI (kg/m2)17.48 square meterWeight Methodactual (measured)Scale TypebedHeight Methodstated [facility] Based Care:How would you like to [...] - Adult v2 07/26/2017 5:00 PM [facility] CBC AND DIFFERENTIALon 08-25 % AUTOMATED IMMATURE GRAN 0.6 % Normal 0.0 - 0.9 [facility] Comment on above: Result Comment: Perc ent differential counts (%) should be interpreted in the context of the absolute cell counts (cells/L). Performed By: #### L IPID ####[address] [address] % NEUTROPHIL 72.1 % Normal 40.0 - 80.0 [facility] Comment on above: Performed By: #### L IPID ####[address] [address] Basophils/100 WBC Auto (Bld) 0.4 % Normal 0.0 - 2.0 [facility] Comment on above: Performed By: #### L IPID ####[address] [address] Basophils/100 WBC Auto (Bld) 0.03 x10E9/L Normal 0.00 - 0.10 [facility] Comment on above: Performed By: #### L IPID ####[address] [address] Eosinophils Auto #/vol (Bld) 0.02 10*3/uL Normal 0.00 - 0.40 [facility] Comment on above: Performed By: #### L IPID ####[address] [address] Eosinophils/100 WBC Auto (Bld) 0.2 % Normal 0.0 - 6.0 [facility] Comment on above: Performed By: #### L IPID ####[address] [address] Erythrocyte distribution width Auto Ratio (RBC) 14.3 % Normal 11.5 - 14.5 [facility] Comment on above: Performed By: #### L IPID ####[address] [address] Hematocrit Auto Volume Fraction (Bld) 44.9 % Normal 36.0 - 46.0 [facility] Comment on above: Performed By: #### L IPID ####[address] [address] Hemoglobin mass conc (Bld) 15.0 g/dL Normal 12.0 - 16.0 [facility] Comment on above: Performed By: #### L IPID ####[address] [address] Lymphocytes Auto #/vol (Bld) 1.89 10*3/uL Normal 0.80 - 3.00 [facility] Comment on above: Performed By: #### L IPID ####[address] [address] Lymphocytes/100 WBC Auto (Bld) 22.5 % Normal 13.0 - 44.0 [facility] Comment on above: Performed By: #### L IPID ####[address] [address] MCHC Auto mass conc (RBC) 33.4 g/dL Normal 32.0 - 36.0 [facility] Comment on above: Performed By: #### L IPID ####[address] [address] MCV Auto Entitic volume (RBC) 97 fL Normal 80 - 100 [facility] Comment on above: Performed By: #### L IPID ####[address] [address] Monocytes Auto #/vol (Bld) 0.35 10*3/uL Normal 0.05 - 0.80 [facility] Comment on above: Performed By: #### L IPID ####[id number] [place] [address] Monocytes/100 WBC Auto (Bld) 4.2 % Normal 2.0 - 10.0 [facility] Comment on above: Performed By: #### L IPID ####[id number] [place] [address] Neutrophils Auto #/vol (Bld) 6.07 10*3/uL High 1.60 - 5.50 [facility] Comment on above: Performed By: #### L IPID ####[id number] [place] [address] Platelets Auto #/vol (Bld) 355 10*3/uL Normal 150 - 450 [facility] Comment on above: Performed By: #### L IPID ####[address] [address] RBC Auto #/vol (Bld) 4.64 x10E12/L Normal 4.00 - 5.20 [facility] Comment on above: Performed By: #### L IPID ####[address] [address] WBC Auto #/vol (Bld) 8.4 10*3/uL Normal 4.4 - 11.3 [facility] Comment on above: Performed By: #### L IPID ####[address] [place] [address] COMPREHENSIVE PANELon 2017 Albumin mass conc 3.7 g/dL Normal 3.4 - 5.0 [facility] Comment on above: Performed By: #### L IPID ####[id number] [place] [address] ALP enzyme act/vol 75 U/L Normal 33 - 136 [facility] Comment on above: Performed By: #### L IPID ####[address] [place] [address] ALT enzyme act/vol 16 U/L Normal 7 - 45 [facility] Comment on above: Result Comment: Daniel ents treated with Sulfasalazine may generate falsely decreased results for ALT. Performed By: #### L IPID ####[address] [address] Anion gap 3 molar conc 17 mmol/L Normal 10 - 20 [facility] Comment on above: Performed By: #### L IPID ####[id number] [place] [address] AST enzyme act/vol 19 U/L Normal 9 - 39 [facility] Comment on above: Performed By: #### L IPID ####[address] [address] Bilirubin mass conc 0.6 mg/dL Normal 0.0 - 1.2 [facility] Comment on above: Performed By: #### L IPID ####[address] [address] Calcium mass conc 10.3 mg/dL Normal 8.6 - 10.3 [facility] Comment on above: Performed By: #### L IPID ####[address] [address] Chloride molar conc 99 mmol/L Normal 98 - 107 [facility] Comment on above: Performed By: #### L IPID ####[address] [address] Creatinine mass conc 0.91 mg/dL Normal 0.50 - 1.05 [facility] Comment on above: Performed By: #### L IPID ####[address] [address] GFR- AM. 71 mL/min/1.73m2 Normal >60 [facility] Comment on above: Result Comment: CALC ULATIONS OF ESTIMATED GFR ARE PERFORMED USING THE MDRD STUDY EQUATION FOR THE IDMS-TRACEABLE CREATININE METHODS. CLIN CHEM 2007;53:766-72 Performed By: #### L IPID ####[address] [address] GFR-NON AM. 59 mL/min/1.73m2 Abnormal >60 [facility] Comment on above: Performed By: #### L IPID ####[address] [address] Glucose mass conc 125 mg/dL High 74 - 99 [facility] Comment on above: Performed By: #### L IPID ####[facility] [place] [address] HCO3 molar conc (Bld) 28 mmol/L Normal 21 - 32 [facility] Comment on above: Performed By: #### L IPID ####[facility] [place] [address] Potassium molar conc 3.9 mmol/L Normal 3.5 - 5.3 [facility] Comment on above: Performed By: #### L IPID ####[facility] [place] [address] Protein mass conc 8.3 g/dL High 6.4 - 8.2 [facility] Comment on above: Performed By: #### L IPID ####[id number] [place] [address] Sodium molar conc 140 mmol/L Normal 136 - 145 [facility] Comment on above: Performed By: #### L IPID ####[facility] [place] [address] Urea nitrogen mass conc 14 mg/dL Normal 6 - 23 [facility] Comment on above: Performed By: #### L IPID ####[id number] [place] [address] CT ABDOMEN AND PELVIS WITH C ONTRASTon 08-25-2017 CT ABDOMEN AND PELVIS WITH CONTRAST Name: DERICKKATHERINE STUDY:CT ABDOMEN AND PELVIS WITH CONTRAST; 08/25/2017 [...] Electronically signed by: LEANN PATEL MD Normal [facility] LACTATEon 08-25-2017 Lactate molar conc 0.8 mmol/L Normal 0.4 - 2.0 [facility] Comment on above: Result Comment: Hali puncture immediately after or during the administration of Metamizole may lead to falsely low results. Testing should be performed immediately prior to Metamizole dosing. Performed By: #### L IPID ####[facility] [place] [address] LIPASEon 08-25-2017 Lipase enzyme act/vol 51 U/L Normal 9 - 82 [facility] Comment on above: Result Comment: Hali puncture immediately after or during the administration of Metamizole may lead to falsely low results. Testing should be performed immediately prior to Metamizole dosing. Performed By: #### L IPID ####[facility] [place] [address] Provider Note - EDon 018 Protein mass conc Time Seen:? Time [id number] 17:58 Triage Vital Signs:? Triage Information Most [...] Signs:? Objective Information T PRBP SpO2O2(LPM) %FiO2 [id number] 18:06:[id number]/81 95 room air, no respiratorysupport Review of [...] labs CT/MRI results. Handoff Date/Time: 25-Aug-2017 19:00. DrLegih/Provider Estelita is/are the receiving Physician/LIP/Resident. Diagnoses/Visit Problems:? Small bowel obstruction: DISCHARGE DISPOSITION:? Disposition: transferred? Facility Name (1): [facility]? Name of 1st Consulting Physician: Willie? Was [...] Triage - ED 08/25/2017 6:06 PM Normal [facility] Risk Screen - Adult Emergenc yon 08-25-2017 Risk Screen - Adult Emergency Preferred Language:Preferred Language:? Preferred Language for Discussing Health Care (patient/designee)Ecuadorean Advanced Directives:? Advance Directive Medicalno Family Violence [...] Learning Preferencesindividual instruction? Cultural Considerationsnone? Developmental Considerationsnone? Baptist Considerationsnone Learning Assessment (Other Learner):Learning Assessment (Other [...] an injured patient at a Trauma Center ([facility]): no Electronic Signatures:Mora Owens (CINTHYA) (Signed 25-Aug-2017 19:06)Authored: Preferred Language, Advanced Directives, Family Violence Adult,Suicide / Depression, Learning Assessment (Patient), Learning Assessment (OtherLearner), Fall Risk Adult, Pressure Injury, Respiratory / Cough /TB,Smoking/Social History (Required age 13 or older), CAGE Last Updated: 25-Aug-2017 19:06 by Mora Owens (CINTHYA) Normal [facility] TROPONIN Ion 08-25-2017 Troponin I.cardiac mass conc ng/mL Normal 0.00 - 0.03 [facility] Comment on above: Result Comment: [...] testing is performed using differenttesting methodology at [facility] than at [facility]. Direct result comparisons should onlybe made within the same method. Performed By: #### L IPID ####[address] [place] [address] Triage - EDon 08-25-2017 INR Coag RelTime (Bld) Pain:Pain Rating (0-10): Rest4 Chart Review:CHIEF COMPLAINT KATHERINE JUDGE is a Female patient with a chief complaint of abdominal pain.Onset of the Complaint: [id number] Date/Time: 25-Aug-2017 17:59Pain Rating (0-10): Rest: 4Vital [...] 18:08 by Obdulia Perea (RN PRN) Normal [facility] UA MICROSCOPICon 08-25-2017 CA OXALATE CRYSTAL 1+ /HPF Normal [facility] Comment on above: Performed By: #### L IPID ####[id number] [place] [address] HYALINE CAST 1+ /LPF Abnormal [facility] Comment on above: Performed By: #### L IPID ####[address] [place] [address] MUCUS FEW Normal [facility] Comment on above: Performed By: #### L IPID ####[address] [place] [address] RBC 3 /HPF Abnormal 0-5 [facility] Comment on above: Performed By: #### L IPID ####[address] [place] [address] SQUAMOUS EPITH. CELLS 1 /HPF Normal [facility] Comment on above: Performed By: #### L IPID ####[address] [place] [address] WBC 4 /HPF Abnormal 0-5 [facility] Comment on above: Performed By: #### L IPID ####[address] [place] [address] URINALYSISon 08-25-2017 APPEARANCE HAZY Normal CLEAR [facility] Comment on above: Performed By: #### L IPID ####[address] [place] [address] BILIRUBIN Negative Normal NEGATIVE [facility] Comment on above: Performed By: #### L IPID ####[address] [place] [address] BLOOD Negative Normal NEGATIVE [facility] Comment on above: Performed By: #### L IPID ####[address] [place] [address] COLOR YELLOW Normal STRAW,YELL OW [facility] Comment on above: Performed By: #### L IPID ####[address] [place] [address] GLUCOSE Negative Normal NEGATIVE [facility] Comment on above: Performed By: #### L IPID ####[address] [place] [address] KETONES Negative Normal NEGATIVE [facility] Comment on above: Performed By: #### L IPID ####[address] [place] [address] LEUKOCYTE ESTERASE TRACE Abnormal NEGATIVE [facility] Comment on above: Performed By: #### L IPID ####[address] [place] [address] NITRITE Negative Normal NEGATIVE [facility] Comment on above: Performed By: #### L IPID ####[address] [place] [address] pH 6.0 Normal 5.0 - 8.0 [facility] Comment on above: Performed By: #### L IPID ####[address] [address] Protein mass conc Negative Normal NEGATIVE [facility] Comment on above: Performed By: #### L IPID ####[address] [place] [address] SPECIFIC GRAVITY 1.013 Normal 1.005 - 1.035 [facility] Comment on above: Performed By: #### L IPID ####[address] [place] [address] UROBILINOGEN <2.0 Normal 0.0 - 1.9 [facility] Comment on above: Performed By: #### L IPID ####[address] [address] BASIC METABOLIC PANELon 08-09 Anion gap 3 molar conc 13 mmol/L Normal 10 - 20 [facility] Comment on above: Order Comment: Drop off AHA, Phleb, Anngee #3193 08/21/2017 pstei Performed By: #### L IPID ####[address] [address] Calcium mass conc 9.3 mg/dL Normal 8.6 - 10.3 [facility] Comment on above: Order Comment: Drop off AHA, Phleb, Anngee #6609 08/21/2017 pstei Performed By: #### L IPID ####[address] [place] [address] Chloride molar conc 101 mmol/L Normal 98 - 107 [facility] Comment on above: Order Comment: Drop off AHA, Phleb, Anngee #8780 08/21/2017 pstei Performed By: #### L IPID ####[address] [place] [address] Creatinine mass conc 0.90 mg/dL Normal 0.50 - 1.05 [facility] Comment on above: Order Comment: Drop off AHA, Phleb, Anngee #0227 08/21/2017 pstei Performed By: #### L IPID ####[address] [place] [address] GFR- AM. 73 mL/min/1.73m2 Normal >60 [facility] Comment on above: Order Comment: Drop off AHA, Phleb, Anngee #8459 08/21/2017 pstei Result Comment: CALC ULATIONS OF ESTIMATED GFR ARE PERFORMED USING THE MDRD STUDY EQUATION FOR THE IDMS-TRACEABLE CREATININE METHODS. CLIN CHEM 2007;53:766-72 Performed By: #### L IPID ####[address] [address] GFR-NON AM. 60 mL/min/1.73m2 Abnormal >60 [facility] Comment on above: Order Comment: Drop off AHA, Phleb Anngee #4129 08/21/2017 pstei Performed By: #### L IPID ####[address] [address] Glucose mass conc 108 mg/dL High 74 - 99 [facility] Comment on above: Order Comment: Drop off AHA, Phleb Anngee #8466 08/21/2017 pstei Performed By: #### L IPID ####[address] [address] HCO3 molar conc (Bld) 29 mmol/L Normal 21 - 32 [facility] Comment on above: Order Comment: Drop off AHA, Phleb Anngee #0636 08/21/2017 pstei Performed By: #### L IPID ####[address] [address] Potassium molar conc 4.2 mmol/L Normal 3.5 - 5.3 [facility] Comment on above: Order Comment: Drop off AHA, Phleb Anngee #7885 08/21/2017 pstei Performed By: #### L IPID ####[address] [address] Sodium molar conc 139 mmol/L Normal 136 - 145 [facility] Comment on above: Order Comment: Drop off AHA, Phleb Anngee #4697 08/21/2017 pstei Performed By: #### L IPID ####[address] [address] Urea nitrogen mass conc 17 mg/dL Normal 6 - 23 [facility] Comment on above: Order Comment: Drop off AHA, Phleb Anngee #3077 08/21/2017 pstei Performed By: #### L IPID ####[address] [place] [address] CBCon 08-21-2017 Erythrocyte distribution width Auto Ratio (RBC) 14.4 % Normal 11.5 - 14.5 [facility] Comment on above: Order Comment: Drop off AHA, Phleb, Anngee #3957 08/21/2017 pstei Performed By: #### L IPID ####[address] [address] Hematocrit Auto Volume Fraction (Bld) 37.2 % Normal 36.0 - 46.0 [facility] Comment on above: Order Comment: Drop off AHA, Phleb, Anngee #3957 08/21/2017 pstei Performed By: #### L IPID ####[address] [address] Hemoglobin mass conc (Bld) 12.0 g/dL Normal 12.0 - 16.0 [facility] Comment on above: Order Comment: Drop off AHA, Phleb, Anngee #3959 08/21/2017 pstei Performed By: #### L IPID ####[address] [address] MCHC Auto mass conc (RBC) 32.3 g/dL Normal 32.0 - 36.0 [facility] Comment on above: Order Comment: Drop off AHA, Phleb, Anngee #3955 08/21/2017 pstei Performed By: #### L IPID ####[address] [address] MCV Auto Entitic volume (RBC) 100 fL Normal 80 - 100 [facility] Comment on above: Order Comment: Drop off AHA, Phleb, Anngee #3951 08/21/2017 pstei Performed By: #### L IPID ####[address] [address] Platelets Auto #/vol (Bld) 322 10*3/uL Normal 150 - 450 [facility] Comment on above: Order Comment: Drop off AHA, Phleb, Anngee #3953 08/21/2017 pstei Performed By: #### L IPID ####[address] [address] RBC Auto #/vol (Bld) 3.71 x10E12/L Low 4.00 - 5.20 [facility] Comment on above: Order Comment: Drop off AHA, Phleb Anngee #3959 08/21/2017 pstei Performed By: #### L IPID ####[address] [address] WBC Auto #/vol (Bld) 8.2 10*3/uL Normal 4.4 - 11.3 [facility] Comment on above: Order Comment: Drop off AHA, Phleb, Anngee #3959 08/21/2017 pstei Performed By: #### L IPID ####[address] [address] BASIC METABOLIC PANELon 06-2 Anion gap 3 molar conc 11 mmol/L Normal 10 - 20 [facility] Comment on above: Performed By: #### L IPID ####[address] [address] Calcium mass conc 8.2 mg/dL Low 8.6 - 10.3 [facility] Comment on above: Performed By: #### L IPID ####[address] [address] Chloride molar conc 107 mmol/L Normal 98 - 107 [facility] Comment on above: Performed By: #### L IPID ####[address] [address] Creatinine mass conc 0.82 mg/dL Normal 0.50 - 1.05 [facility] Comment on above: Performed By: #### L IPID ####[address] [address] GFR- AM. >60 Normal >60 [facility] Comment on above: Result Comment: CALC ULATIONS OF ESTIMATED GFR ARE PERFORMED USING THE MDRD STUDY EQUATION FOR THE IDMS-TRACEABLE CREATININE METHODS. CLIN CHEM 2007;53:766-72 Performed By: #### L IPID ####[address] [address] GFR-NON AM. >60 Normal >60 [facility] Comment on above: Performed By: #### L IPID ####[facility] [place] [address] Glucose mass conc 92 mg/dL Normal 74 - 99 [facility] Comment on above: Performed By: #### L IPID ####[address] [place] [address] HCO3 molar conc (Bld) 26 mmol/L Normal 21 - 32 [facility] Comment on above: Performed By: #### L IPID ####[address] [place] [address] Potassium molar conc 3.5 mmol/L Normal 3.5 - 5.3 [facility] Comment on above: Performed By: #### L IPID ####[address] [address] Sodium molar conc 140 mmol/L Normal 136 - 145 [facility] Comment on above: Performed By: #### L IPID ####[address] [address] Urea nitrogen mass conc 11 mg/dL Normal 6 - 23 [facility] Comment on above: Performed By: #### L IPID ####[address] [address] CBCon 07-29-2017 Erythrocyte distribution width Auto Ratio (RBC) 13.0 % Normal 11.5 - 14.5 [facility] Comment on above: Performed By: #### L IPID ####[address] [address] Hematocrit Auto Volume Fraction (Bld) 33.6 % Low 36.0 - 46.0 [facility] Comment on above: Performed By: #### L IPID ####[address] [place] [address] Hemoglobin mass conc (Bld) 10.8 g/dL Low 12.0 - 16.0 [facility] Comment on above: Performed By: #### L IPID ####[address] [address] MCHC Auto mass conc (RBC) 32.1 g/dL Normal 32.0 - 36.0 [facility] Comment on above: Performed By: #### L IPID ####[address] [place] [address] MCV Auto Entitic volume (RBC) 103 fL High 80 - 100 [facility] Comment on above: Performed By: #### L IPID ####[facility] [place] [address] Platelets Auto #/vol (Bld) 252 10*3/uL Normal 150 - 450 [facility] Comment on above: Performed By: #### L IPID ####[address] [place] [address] RBC Auto #/vol (Bld) 3.25 x10E12/L Low 4.00 - 5.20 [facility] Comment on above: Performed By: #### L IPID ####[address] [place] [address] WBC Auto #/vol (Bld) 6.3 10*3/uL Normal 4.4 - 11.3 [facility] Comment on above: Performed By: #### L IPID ####[address] [place] [address] CLOST.DIFF.TOXIN,PCRon 07-29 CLOST.DIFF.TOXIN,PCR NOT DETECTED Normal Not Detected [facility] Comment on above: Result Comment: [...] 7 days. Performed By: #### L IPID ####[address] [place] [address] Daily Progress Note-Surgeryo n 07-29-2017 Protein mass conc Service: Surgery Sub jective Data:KATHERINE JUDGE is a 82 year old Female who is Hospital Day # 4. MORE AWAKE / TOLERATING PO / C DIFF NEGATIVE. Objective Data: Objective Information:T [id number]/739 7%Date/Time07/29 6: 6: 6: 6: 6:40Range(36.6C - [...] Last Updated: 29-Jul-2017 08:52 by Manny Arana) [facility] Discharge Planning Noteon Discharge Planning Note Discharge Needs Assessment:? Discharge Planning Assessment [id number]? Discharge Planning Assessment Completed bySom Chaudhari CC Patient Learning:? Factors that Impact Ability to Learnnone(1) Other Factors:? Functional Screen: In the recent/past 2-4 weeks, patient or family havenoticednew difficulty in safely performing activities of daily living, asignificant change in function affecting balance, or the ability to safelytransfer or ambulate (And is not on bedrest)(2) Discharge Needs:? [facility]Discharge Plannin07/29/17 Spoke with patient with family present, patient stated ok to talk infront of family, [facility] Referral sent via [facility], [facility] will accept patient at discharge, no precert required. Willcontinue to follow. Som Chaudhari RNCC 07/29/17 Discharge Orders sent [facility] to [facility]. Som Leon 07/29/17 1427 [facility] and cath intact. [facility] withmily also going to go to [facility] to help pt. get settled. Report alsocalled to nurse Olga at [facility] per resourse nurseJoy. LEIA Wallace Final Disposition/Discharge:Dispos ition/Discharge Information: Discharge/Transfer Information:? Discharge/Transfer Date/[id number]-7846 14:27 Electronic Signatures:France Bean (RN) (Signed 29-Jul-2017 14:45)Authored: Discharge Planning Note, Final Disposition/DischargeSom Jama (CLIN COOR) (Signed 29-Jul-2017 11:19)Authored: Discharge Planning Note Last Updated: 29-Jul-2017 14:45 by France Bean (RN) References:1. Data Referenced From 5. Education 07/26/2017 05:07 PM2. Data Referenced From Admission Risk Screen - Adult 07/26/2017 05:07 PM Normal [facility] Discharge [id number] 06-20-2 018 Protein mass conc Discharge Orders:Ant icipated Discharge Date:? Anticipated Discharge [id number] Problem List: Admitting Dx:? Acute kidney injury: [...] Review of Medication Reconciliation and Orders Completedby POLICYHOLDER INFORMATION CLERK? Reviewing ProviderPatricia GIANNA Tillman at 29-Jul-2017 13:51:52 Gold Form - Nursing Summary:Special Treatments/Procedures (in past 14 days):? Chemotherapyno? Dialysisno? IV Medicationno? Oxygen Therapyno? Transfusionsno? Feverno? Radiationno? Ventilatorno? Tracheostomyno? Suctioningno Nutrition:? Nutritional Statusfeeds self, good set up? Nutrition CommentBoost Sensory/Comfort:? Visionadequate? Hearingadequate? Speechclear? Painno Elimination:? Bladdercontinent, occ. incont.? Bowelcontinent? Last Bowel Nvpoqhua37-Hxi-1964? Toiletingtoilet Safety:? Siderailsyes? Siderails Number/ReasonSafety? Restraintsno? Sitterno? Fall Riskprevious falls, weakness Medication/Hygiene/Mobility: ? Medication Administrationassist? Bathingassist? Dressingassist? Bed Mobilitysupervision only? Wheelchairassist? Transfersassist? Ambulationassist Gold Form - Bobbin Loose End Finder Summary:Referral Information:? Referral [facility]? Referring Facility [facility]? Contact Arianagrupo Fara [facility]? Contact Phone [phone] Electronic Signatures:Nima Teixeira (RN) (Signed 29-Jul-2017 13:45)Authored: Gold Form - Nursing SummarySom Chaudhari (CLIN COOR) (Signed 29-Jul-2017 07:48)Authored: Gold Form - Bobbin Loose End Finder SummaryValerie Jiang) (Signed 29-Jul-2017 10:13)Authored: Discharge Alex Morales (POLICYHOLDER INFORMATION CLERK-DATA STORAGE SPECIALIST) (Signed 29-Jul-2017 13:51)Authored: Discharge Orders, Gold Form Orders, Provider FINAL REVIEW of Orders Last Updated: 29-Jul-2017 13:51 by Alex Tillman (POLICYHOLDER INFORMATION CLERK-DATA STORAGE SPECIALIST) Normal [facility] MAGNESIUMon 07-29-2017 Magnesium mass conc 1.38 mg/dL Low 1.60 - 2.40 [facility] Comment on above: Performed By: #### L IPID ####[address] [address] BASIC METABOLIC PANELon 07-10 Anion gap 3 molar conc 6 mmol/L Low 10 - 20 [facility] Comment on above: Performed By: #### L IPID ####[address] [address] Calcium mass conc 9.0 mg/dL Normal 8.6 - 10.3 [facility] Comment on above: Performed By: #### L IPID ####[address] [address] Chloride molar conc 108 mmol/L High 98 - 107 [facility] Comment on above: Performed By: #### L IPID ####[address] [address] Creatinine mass conc 1.00 mg/dL Normal 0.50 - 1.05 [facility] Comment on above: Performed By: #### L IPID ####[address] [address] GFR- AM. 64 mL/min/1.73m2 Normal >60 [facility] Comment on above: Result Comment: CALC ULATIONS OF ESTIMATED GFR ARE PERFORMED USING THE MDRD STUDY EQUATION FOR THE IDMS-TRACEABLE CREATININE METHODS. CLIN CHEM 2007;53:766-72 Performed By: #### L IPID ####[address] [address] GFR-NON AM. 53 mL/min/1.73m2 Abnormal >60 [facility] Comment on above: Performed By: #### L IPID ####[address] [address] Glucose mass conc 92 mg/dL Normal 74 - 99 [facility] Comment on above: Performed By: #### L IPID ####[facility] [place] [address] HCO3 molar conc (Bld) 30 mmol/L Normal 21 - 32 [facility] Comment on above: Performed By: #### L IPID ####[facility] [place] [address] Potassium molar conc 3.3 mmol/L Low 3.5 - 5.3 [facility] Comment on above: Performed By: #### L IPID ####[facility] [place] [address] Sodium molar conc 141 mmol/L Normal 136 - 145 [facility] Comment on above: Performed By: #### L IPID ####[facility] [place] [address] Urea nitrogen mass conc 19 mg/dL Normal 6 - 23 [facility] Comment on above: Performed By: #### L IPID ####[facility] [place] [address] BONE SCAN/ WHOLE BODYon 07-10 BONE SCAN/ [...] a normal variation.This study was interpreted at [facility]. Electronically signed by: MICHEAL AGUIRRE MD Normal [facility] CBCon 07-28-2017 Erythrocyte distribution width Auto Ratio (RBC) 13.1 % Normal 11.5 - 14.5 [facility] Comment on above: Performed By: #### L IPID ####[address] [place] [address] Hematocrit Auto Volume Fraction (Bld) 30.5 % Low 36.0 - 46.0 [facility] Comment on above: Performed By: #### L IPID ####[facility] [place] [address] Hemoglobin mass conc (Bld) 9.5 g/dL Low 12.0 - 16.0 [facility] Comment on above: Performed By: #### L IPID ####[facility] [place] [address] MCHC Auto mass conc (RBC) 31.1 g/dL Low 32.0 - 36.0 [facility] Comment on above: Performed By: #### L IPID ####[facility] [place] [address] MCV Auto Entitic volume (RBC) 103 fL High 80 - 100 [facility] Comment on above: Performed By: #### L IPID ####[facility] [place] [address] Platelets Auto #/vol (Bld) 247 10*3/uL Normal 150 - 450 [facility] Comment on above: Performed By: #### L IPID ####[facility] [place] [address] RBC Auto #/vol (Bld) 2.96 x10E12/L Low 4.00 - 5.20 [facility] Comment on above: Performed By: #### L IPID ####[facility] [place] [address] WBC Auto #/vol (Bld) 5.4 10*3/uL Normal 4.4 - 11.3 [facility] Comment on above: Performed By: #### L IPID ####[facility] [place] [address] Daily Progress Note-Medicine on 07-28-2017 Protein mass [...] an uneventful night. Objective Data: Objective Information:T SVDWTlJ9Rjdwa67.51194841/769 6%Date/Time07/28 6:4907/28 6:4907/28 6:4907/28 6: 6:49Range(36.6C - [...] Oral Daily16. Simvastatin: 40 mg Oral At Jmwesyn15. tiZANidine: 2 mg Oral Every 24 Hours PRN Medications ---- 1. Acetaminophen: 650 mg Oral Every 4 Hours2. Bisacodyl Enteric Coated: 5 mg Oral Once3. Magnesium Hydroxide -Al Hydrox -Simethicone Oral Liquid: 30 mL OralEvery 6 Hours4. traMADol: 50 mg Oral Every 6 Hours Recent Lab Results: Results:Complete Blood Qgevk80-Mbh-9099 08:25:00 ResultValueReference RangeWhite Blood Cell Count5.44.4 - 11.3 x10E9/LRed Blood Cell Count2.96 L4.00 - 5.20 x10E12/LHGB9.5 L12.0 - 16.0 g/dLHCT30.5 L36.0 - 46.0 %IWD759 H80 - 100 uGTZWK29.1 L32.0 - 36.0 g/cRFQF836734 - 450 x10E9/LRDW-CV13.111.5 - 14.5 % Basic Metabolic Kxcbx35-Kli-2395 08:25:00 ResultValueReference RangeGlucose, Znmjs3575 - 99 mg/kBPV251262 - 145 mmol/LK3.3 L3.5 - 5.3 mmol/YTB873 H98 - 107 mmol/LBicarbonate, Teeju2968 - 32 mmol/LAnion Gap, Serum6 L10 - 20 mmol/XKCV664 - 23 mg/dLCREAT1.000.50 - 1.05 mg/dLGFR-Non Ffolowee58 A>60 mL/min/1.76c9RNX-Hpqwuou Pjzdqbbe35>60 mL/min/1.04r2Lkjrhge, Serum9.08.6 - 10.3 mg/dL Assessment and Plan:Assessment: [...] Updated: 28-Jul-2017 17:01 by Valerie Jiang) Normal [facility] BASIC METABOLIC PANELon 06-1 Anion gap 3 molar conc 9 mmol/L Low 10 - 20 [facility] Comment on above: Performed By: #### L IPID ####[address] [place] [address] Calcium mass conc 10.9 mg/dL High 8.6 - 10.3 [facility] Comment on above: Performed By: #### L IPID ####[address] [place] [address] Chloride molar conc 105 mmol/L Normal 98 - 107 [facility] Comment on above: Performed By: #### L IPID ####[address] [address] Creatinine mass conc 1.47 mg/dL High 0.50 - 1.05 [facility] Comment on above: Performed By: #### L IPID ####[address] [address] GFR- AM. 41 mL/min/1.73m2 Abnormal >60 [facility] Comment on above: Result Comment: CALC ULATIONS OF ESTIMATED GFR ARE PERFORMED USING THE MDRD STUDY EQUATION FOR THE IDMS-TRACEABLE CREATININE METHODS. CLIN CHEM 2007;53:766-72 Performed By: #### L IPID ####[address] [address] GFR-NON AM. 34 mL/min/1.73m2 Abnormal >60 [facility] Comment on above: Performed By: #### L IPID ####[address] [place] [address] Glucose mass conc 91 mg/dL Normal 74 - 99 [facility] Comment on above: Performed By: #### L IPID ####[address] [place] [address] HCO3 molar conc (Bld) 29 mmol/L Normal 21 - 32 [facility] Comment on above: Performed By: #### L IPID ####[address] [place] [address] Potassium molar conc 3.9 mmol/L Normal 3.5 - 5.3 [facility] Comment on above: Performed By: #### L IPID ####[address] [place] [address] Sodium molar conc 139 mmol/L Normal 136 - 145 [facility] Comment on above: Performed By: #### L IPID ####[address] [address] Urea nitrogen mass conc 33 mg/dL High 6 - 23 [facility] Comment on above: Performed By: #### L IPID ####[address] [address] CBCon 07-27-2017 Erythrocyte distribution width Auto Ratio (RBC) 13.2 % Normal 11.5 - 14.5 [facility] Comment on above: Performed By: #### L IPID ####[address] [address] Hematocrit Auto Volume Fraction (Bld) 31.3 % Low 36.0 - 46.0 [facility] Comment on above: Performed By: #### L IPID ####[address] [address] Hemoglobin mass conc (Bld) 9.8 g/dL Low 12.0 - 16.0 [facility] Comment on above: Performed By: #### L IPID ####[address] [address] MCHC Auto mass conc (RBC) 31.3 g/dL Low 32.0 - 36.0 [facility] Comment on above: Performed By: #### L IPID ####[address] [address] MCV Auto Entitic volume (RBC) 105 fL High 80 - 100 [facility] Comment on above: Performed By: #### L IPID ####[address] [address] Platelets Auto #/vol (Bld) 241 10*3/uL Normal 150 - 450 [facility] Comment on above: Performed By: #### L IPID ####[address] [address] RBC Auto #/vol (Bld) 2.99 x10E12/L Low 4.00 - 5.20 [facility] Comment on above: Performed By: #### L IPID ####[facility] [place] [address] WBC Auto #/vol (Bld) 6.3 10*3/uL Normal 4.4 - 11.3 [facility] Comment on above: Performed By: #### L IPID ####[facility] [place] [address] Consulton 07-27-2017 Consult Service:Consult:Cons ult requested by (Attending Name): Joy: PATIENT KNOWN TO ME / S/P RIGHT COLECTOMY FOR CECAL VOLVULUS / History of Present Illness:HPI:PATIENT 24 DAYS S/P RIGHT COLECTOMY FOR CECAL VOLVULUS / WAS DC TO ID AND DOINGRESONABLE WELL / NOTED TO BE [...] bowel obstruction (disorder):Acute bowel obstruction: Onset Date: 77-Pbv-1369Rcthvufnmyh abdominal pain (finding):Acute bowel obstruction:Acute bowel obstruction: [...] Confusion? Restoril: Confusion Objective: Objective Information: T SCIOHhN2Tqhud73.64777926/659 7%Date/Time07/26 21: 21: 21: 21: 21:00Range(36.7C - [...] reviewed these laboratory results: Complete Blood Count [Lytea07-Mfe-1163 06:25:00], Basic Metabolic Panel [Drawn 27-Jul-2017 06:25:00],Comprehensive [...] Updated: 27-Jul-2017 07:34 by Manny Arana) Normal [facility] History and Physicalon 07-27 History and Physical History of Present Illness:Admission Reason: Encephalopathy; HypercalcemiaHPI:Ms. Judge is an 82 year old female who [facility] dueto altered mental status. Patient was seen [...] lead 3 and aVF.Medications: Cipro, IV bolus j6Hrkuqfl was admitted to med surg for further medical management. Past Medical/Surgical History:Gastrocutaneous fistulaConstipationIleusExpl oratory laparotomyAnemiaTransient ischemic colitis (disorder)Protein malnutrition unspecified (disorder)Hypokalemia (disorder)Magnesium deficiencyColitis (disorder)Small bowel obstruction (disorder)Acute bowel obstruction: Onset Date: 99-Oxf-8236Lvoqjcosiuq abdominal pain (finding)CAD, status post 2013 circumflex [...] Confusion? Restoril: Confusion Objective: Objective Information: T IQJYIbB2Vvzlj70.20158026/619 8%Date/Time07/27 6:5818 6:5818 6:586/18 6:586/18 6:58Range(36.7C - 36.8C ) (62 - 71 [...] Oral Daily13. Simvastatin: 40 mg Oral At Wzfwfmq64. [employer] [place] 99m Medronate (MDP - Radiology [...] 6 Hours Recent Lab Results: Results:Complete Blood Wegfg48-Sxx-7384 06:25:00 ResultValueReference RangeWhite Blood Cell Count6.34.4 - 11.3 x10E9/LRed Blood Cell Count2.99 L4.00 - 5.20 x10E12/LHGB9.8 L12.0 - 16.0 g/dLHCT31.3 L36.0 - 46.0 %SGN365 H80 - 100 nFETZS92.3 L32.0 - 36.0 g/qBRSZ157463 - 450 x10E9/LRDW-CV13.211.5 - 14.5 % Basic Metabolic Yivmp56-Int-6286 06:25:00 ResultValueReference RangeGlucose, Rvwmh8453 - 99 mg/xPSE052321 - 145 mmol/LK3.93.5 - 5.3 mmol/JTW07931 - 107 mmol/LBicarbonate, Etldm1849 - 32 mmol/LAnion Gap, Serum9 L10 - 20 mmol/LBUN33 H6 - 23 mg/dLCREAT1.47 H0.50 - 1.05 mg/dLGFR-Non Wzyjygzk52 A>60 mL/min/1.50a7NQJ-Obdxpeb Zvxqhlsz26 A>60 mL/min/1.34l3Ilgeerc, Serum10.9 H8.6 - 10.3 mg/dL Brain Natriuretic Dainmuf32-Flo-2381 15:10:00 ResultValueReference RangeBrain Natriuretic Gfzpkid467 - 99 pg/mL Mzvdasskot45-Gmq-4864 15:06:00 ResultValueReference RangeColor, UrineYELLOW Reference Range: STRAW,YELLOWAppearance, UrineHAZYCLEARSpecific [place], Urine1.0091.005 - 1.035pH, Urine6.05.0 - 8.0Protein, UrineNEGATIVENEGATIVE mg/dLGlucose, UrineNEGATIVENEGATIVE mg/dLBlood, UrineSMALL(1+) ANEGATIVEKetones, UrineNEGATIVENEGATIVE mg/dLBilirubin, UrineNEGATIVENEGATIVEUrobili nogen, Urine<2.00.0 - 1.9 mg/dLNitrite, UrineNEGATIVENEGATIVELeukocy te Esterase, UrineMODERATE(2+) ANEGATIVE Urinalysis, Cruezhylmfb47-Ecm-3883 15:06:00 ResultValueReference RangeWhite Cells8 A0 - 5 /HPFRed Blood Cells2 A0 - 5 /HPFEpithelial Cells, Ibivxrni7Ppqdlvtufc Cells, Transitional<1Bacteria, Urine4+ AMucousFEWHyaline Casts3+ AAmorphous Crystals1+ Culture, BloodTrending View Dpxwhx11-Uwb-4941 14:35:1891-Ofd-2400 14:34:00Reference RangeCulture, BloodNEGATIVE TO DATE, CULTURE IN PROGRESS.NEGATIVE TO DATE, CULTUREIN PROGRESS. Comprehensive Metabolic Cmnws72-Fvi-1557 14:34:00 ResultValueReference RangeLab Comment:Dr Vance notified, 07/26/2017 15:10Glucose, Hoyek620 H74 - 99 mg/vPTM076867 - 145 mmol/LK4.83.5 - 5.3 mmol/OSP9482 - 107 mmol/LBicarbonate, Fiklm4105 - 32 mmol/LAnion Gap, Tigzh5863 - 20 mmol/LBUN43 H6 - 23 mg/dLCREAT1.94 H0.50 - 1.05 mg/dLGFR-Non Azoebxhk96 A>60 mL/min/1.82c8EJD-Xvvolrl Kchexqaz64 A>60 mL/min/1.46i9Shmrcnf, Serum13.2 HH8.6 - 10.3 mg/dLALB3.0 L3.4 - 5.0 g/wRBARS9824 - 136 U/LT Pro6.66.4 - 8.2 g/Rashi Bili0.40.0 - 1.2 mg/dLAlanine Aminotransferase, Aaquj812 - 45 U/LAspartate Transaminase, Bzrah093 - 39 U/L Complete Blood Count + Nlogqxoonwqm86-Fby-8199 14:34:00 ResultValueReference RangeWhite Blood Cell Count10.54.4 - 11.3 x10E9/LRed Blood Cell Count3.33 L4.00 - 5.20 x10E12/LHGB11.0 L12.0 - 16.0 g/dLHCT34.2 L36.0 - 46.0 %KNK917 H80 - 100 uSIDYN87.232.0 - 36.0 g/cBFLL499558 - 450 x10E9/LRDW-CV13.311.5 - 14.5 %Neutrophil %86.540.0 - 80.0 %Immature Granulocytes %0.50.0 - 0.9 %Lymphocyte %10.613.0 - 44.0 %Monocyte %2.02.0 - 10.0 %Eosinophil %0.20.0 - 6.0 %Basophil %0.20.0 - 2.0 %Neutrophil Count9.11 H1.60 - 5.50 x10E9/LLymphocyte Count1.110.80 - 3.00 x10E9/LMonocyte Count0.210.05 - 0.80 x10E9/LEosinophil Count0.020.00 - 0.40 x10E9/LBasophil Count0.020.00 - 0.10 x10E9/L PT + INR, Nfdbxu54-Dsz-8267 14:34:00 ResultValueReference RangeProthrombin Time, Bgcuwr52.3 H9.8 - 12.7 secInternational Normalized Ratio, Plasma1.2 H0.9 - 1.1 RBC Yarexgcmyr72-Lbw-2170 14:34:00 ResultValueReference RangeRed Blood Cell MorphologySEE COMMENT NO SIGNIFICANT RBC ABNORMALITIES SEEN ONSMEAR REVIEW. 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 Nutrition consulted per nursing screen for MST 2 or more, eating poorly/recentweight loss and for assessment recommendations. Per chart: Pt presented to ED from retirement facility on 07/26 atrecommendation of primary care [...] Pt says she would try Boost Plus [place]. Says she does not likeeggs. Noted different [...] 2 Abdomen Pain 3 Cholelithiasis: Onset Date: 66-Vuz-1220Fiqcn failure: Description: Heart failurePNEUMONIA:Diabetes mellitus: Description: Diabetes [...] bowel obstruction (disorder):Acute bowel obstruction: Onset Date: 00-Uoe-7356Aijds bowel obstruction: Objective Information: T ZGDUYxB1Wsqts15.24208237/619 8%Date/Time07/27 6: 6:5807/27 6:5807/27 6: 6:58Range(36.7C - [...] (kg/m2)) 18.712 ---- Intake and Output -----Mn/Dy/Year TimeIntakeOutChildren[facility] 2017 2:00 [id number] 2017 10:00 [id number] The Intake and Output Totals for the last 24 hours are:IeifoqLbluawCnz825yuqknv ll Height/Weight:Height in feet: 5 feetHeight in [...] (H) Nutrition Labs:Special Chemistry: 03-Jul-2017 10:15, Hemoglobin C8UXrzvncprkr A1C, Level5.3 Diagnosis of Diabetes-Adults Non-Diabetic: < or = 5.6% Increased risk for developing diabetes: 5.7-6.4% Diagnostic of diabetes: > or = 6.5%. Monitoring of Diabetes Age (y) Therapeutic Goal (%) Adults: >18 <7.0 Pediatrics: 13-18 <7.5 7-12 <8.0 0- 6 7.5-8.5 [employer]. Diabetes Care 33(S1), Feb 2009.Estimated Average Volmnvx859 Current Active Medications/PN:Bisacodyl Enteric Coated, Enteric Coated Tablet (DULCOLAX)DOSE = 5 mg Oral Once, PRN Constipation, 39-Hsu-7398Yzccyzuzn Hydroxide -Al Hydrox -Simethicone Oral Liquid, (MAALOX)DOSE = 30 mL Oral Every 6 Hours, PRN Dyspepsia, 58-Usx-5828Cixqsljchg, Tablet (PRINIVIL, ZESTRIL)DOSE = 10 mg Oral Daily, 51-Hbn-5030jqbEYSkl, Tablet (ULTRAM)DOSE = 50 mg Oral Every 6 Hours, PRN Pain - Mod (4-6), 88-Xhv-4127Cgmdjvmenjw, Tablet (PLAVIX)DOSE = 75 mg Oral Daily, 12-Hrz-9154Usienevedw, Tablet (LASIX)DOSE = 20 mg Oral Daily, 25-Izk-8878Xbtxkciozs, Capsule (NEURONTIN)DOSE = 300 mg Oral 3 Times a Day, 12-Sby-6389Wgnslrutxg Mononitrate Extended Release, Tablet, Extended Release (IMDUR)DOSE = 60 mg Oral Daily, 68-Xdb-9947Ezudjjqbwz Tartrate, Tablet (LOPRESSOR)DOSE = 50 mg Oral Every 12 Hours, 25-Oql-9908Hreatoflpbz, Tablet (ZOCOR)DOSE = 40 mg Oral At Bedtime, 98-Jtd-2771Rbnwjsifgj, Tablet (PEPCID)DOSE = 20 mg Oral At Bedtime, 13-Rlj-4704Bglsdzzilj Oral Liquid, DOSE = 125 mg Oral Every 6 Hours, 63-Uin-9983Htrsuse Sulfate, Tablet (FEOSOL)DOSE = 325 mg Oral Daily, 76-Nil-6197Acgfciojd Chloride Extended Release, Tablet, Extended ReleaseDOSE = 10 mEq Oral Daily, 93-Oyv-9142qlIZXOckj Extended Release (24 hour), Tablet, Extended Release (WELLBUTRINXL)DOSE = 150 mg Oral Every 24 Hours, 92-Gpy-2578Xaczycauzf, Tablet (ZOLOFT)DOSE = 150 mg Oral Daily, 44-Gsh-9663gpROKvsjul, Tablet (ZANAFLEX)DOSE = 2 mg Oral Every 24 Hours, 63-Sjj-6663Jgudyp Chloride 0.9% with Potassium CL 20 mEq Premix Fluid, IV Bag Volume =1,000 mL Run at: 100 mL/hr IntraVenous , 27-Jul-2017 Nutrition Orders:Diet, Regular, 14-Qxs-2988Miq Participate in Room Service, YesOrder entered from Admission Screens., 99-Hsu-7486Hcwu Nutritional Supplements, RoutineBoost PlusFlavor Preference: [place], 3 Times a DaySpecial Instructions: Please send Boost Plus [place] with each tray.Thank you!, 27-Jul-2017 Food/Nutrition Related [...] 15:15 by Silvia Tyler ([place], [place]) Normal [facility] PARATHYROID HORMONE,INTACTon 07-27-2017 PARATHYROID HORMONE,INTACT < 6.3 Low 18.5 - 88.0 [facility] Comment on above: Result Comment: Daniel ents receiving more than 5 mg/day of biotin may have interference in test results. A sample should be taken no sooner than eight hours after previous dose. Contact [phone] for additional information. Performed By: #### L IPID ####[facility] [place] [address] Admission Risk Screen - Adul ton 07-26-2017 [...] Advance Directive typeLiving Will, Durable Power of Pharmacoepidemiologist for Healthcare? Living Will AvailabilityLiving Will not available now? Living Will Bvpbcloyt58-Asv-7355? Durable Power of Pharmacoepidemiologist AvailabilityDPOA not available now? Durable Power of Pharmacoepidemiologist Pjbvkaheo52-Wtf-2183? Durable Power of Pharmacoepidemiologist contact (name and number)Dannie Judge- [phone]? Advance Directive Mental Healthnot applicable Falls Screen:Type [...] material; verbal instruction? Cultural Considerationsnone? Developmental Considerationsnone? Baptist Considerationsnone Learning Assessment (Other Learner):? Other learner [...] Spiritual Screen:? Are there any cultural, spiritual, jain practices/values/needs that areimportant for us to know?no CAGE:Is this an injured patient at a Trauma Center ([facility] [place]): no Vaccinations:Vaccination - Influenza Vaccination Screen:? Is [...] Last Updated: 26-Jul-2017 17:13 by Layne Dunbar (RN) References:1. Data Referenced From Triage - ED 07/26/2017 2:05 PM Normal [facility] BLOOD CULTURE, BACTERIALon 0 07-26-2017 BLOOD CULTURE, BACTERIAL PATIENT: KATHERINE JUDGE LOCATION: [address]#: [id number] : [birth year] AGE: SEX: F ORDERED BY: TOMMY MENDEZ: Blood COLLECTED: 07/26/17 14:35ANTIBIOTICS AT ESDRAS.: RECEIVED : 07/27/17 09:48SITE: ANTECUBITAL R E S U L T S BLOOD CULTURE, BACTERIAL FINAL 08/01/17 11:42 No Growth at 1 days No Growth at 2 days No Growth at 3 days No Growth at 4 days NO GROWTH - FINAL REPORT Normal [facility] Comment on above: Performed By: #### L IPID ####[address] [place] [address] BLOOD CULTURE, BACTERIAL PATIENT: KATHERINE JUDGE LOCATION: [address]#: [id number] : [birth year] AGE: SEX: F ORDERED BY: TOMMY MENDEZ: Blood COLLECTED: 07/26/17 14:34ANTIBIOTICS AT ESDRAS.: RECEIVED : 07/27/17 09:58SITE: ANTECUBITAL R E S U L T S BLOOD CULTURE, BACTERIAL FINAL 08/01/17 11:42 No Growth at 1 days No Growth at 2 days No Growth at 3 days No Growth at 4 days NO GROWTH - FINAL REPORT Normal [facility] Comment on above: Performed By: #### L IPID ####[address] [place] [address] BNPon 07-26-2017 Natriuretic peptide B mass conc (Bld) 67 pg/mL Normal 0 - 99 [facility] Comment on above: Result Comment: . <1 00 pg/mL - Heart failure rpamjuda996-838 pg/mL - Intermediate probability of acute heart. failure exacerbation. Correlate with clinical. context and patient history. >=300 pg/mL - Heart Failure likely. Correlate with clinical. context and patient history.BNP testing is performed using different testingmethodology at [facility] than at [facility]. Direct result comparisons shouldonly be made within the same method. Performed By: #### L IPID ####[address] [address] CBC AND DIFFERENTIALon 07-26 % AUTOMATED IMMATURE GRAN 0.5 % Normal 0.0 - 0.9 [facility] Comment on above: Result Comment: Perc ent differential counts (%) should be interpreted in the context of the absolute cell counts (cells/L). Performed By: #### L IPID ####[address] [address] % NEUTROPHIL 86.5 % Normal 40.0 - 80.0 [facility] Comment on above: Performed By: #### L IPID ####[address] [address] Basophils/100 WBC Auto (Bld) 0.02 x10E9/L Normal 0.00 - 0.10 [facility] Comment on above: Performed By: #### L IPID ####[address] [address] Basophils/100 WBC Auto (Bld) 0.2 % Normal 0.0 - 2.0 [facility] Comment on above: Performed By: #### L IPID ####[address] [address] Eosinophils Auto #/vol (Bld) 0.02 10*3/uL Normal 0.00 - 0.40 [facility] Comment on above: Performed By: #### L IPID ####[address] [address] Eosinophils/100 WBC Auto (Bld) 0.2 % Normal 0.0 - 6.0 [facility] Comment on above: Performed By: #### L IPID ####[address] [address] Lymphocytes Auto #/vol (Bld) 1.11 10*3/uL Normal 0.80 - 3.00 [facility] Comment on above: Performed By: #### L IPID ####[address] [address] Lymphocytes/100 WBC Auto (Bld) 10.6 % Normal 13.0 - 44.0 [facility] Comment on above: Performed By: #### L IPID ####[address] [address] Monocytes Auto #/vol (Bld) 0.21 10*3/uL Normal 0.05 - 0.80 [facility] Comment on above: Performed By: #### L IPID ####[address] [address] Monocytes/100 WBC Auto (Bld) 2.0 % Normal 2.0 - 10.0 [facility] Comment on above: Performed By: #### L IPID ####[address] [address] Neutrophils Auto #/vol (Bld) 9.11 10*3/uL High 1.60 - 5.50 [facility] Comment on above: Performed By: #### L IPID ####[address] [address] Erythrocyte distribution width Auto Ratio (RBC) 13.3 % Normal 11.5 - 14.5 [facility] Comment on above: Performed By: #### L IPID ####[address] [address] Hematocrit Auto Volume Fraction (Bld) 34.2 % Low 36.0 - 46.0 [facility] Comment on above: Performed By: #### L IPID ####[address] [address] Hemoglobin mass conc (Bld) 11.0 g/dL Low 12.0 - 16.0 [facility] Comment on above: Performed By: #### L IPID ####[address] [place] [address] MCHC Auto mass conc (RBC) 32.2 g/dL Normal 32.0 - 36.0 [facility] Comment on above: Performed By: #### L IPID ####[address] [place] [address] MCV Auto Entitic volume (RBC) 103 fL High 80 - 100 [facility] Comment on above: Performed By: #### L IPID ####[address] [address] Platelets Auto #/vol (Bld) 317 10*3/uL Normal 150 - 450 [facility] Comment on above: Performed By: #### L IPID ####[address] [address] RBC Auto #/vol (Bld) 3.33 x10E12/L Low 4.00 - 5.20 [facility] Comment on above: Performed By: #### L IPID ####[place] [address] WBC Auto #/vol (Bld) 10.5 10*3/uL Normal 4.4 - 11.3 [facility] Comment on above: Performed By: #### L IPID ####[address] [address] CHEST 1 VIEWon 07-26-2017 CHEST 1 VIEW [...] Electronically signed by: KAVON MANNING MD Normal [facility] COMPREHENSIVE PANELon 2017 Albumin mass conc 3.0 g/dL Low 3.4 - 5.0 [facility] Comment on above: Order Comment: Dr Perry parra notified, 07/26/2017 15:10 Performed By: #### L IPID ####[id number] [place] [address] ALP enzyme act/vol 65 U/L Normal 33 - 136 [facility] Comment on above: Order Comment: Dr Perry parra notified, 07/26/2017 15:10 Performed By: #### L IPID ####[id number] [place] [address] ALT enzyme act/vol 24 U/L Normal 7 - 45 [facility] Comment on above: Order Comment: Dr Perry parra notified, 07/26/2017 15:10 Result Comment: Daniel ents treated with Sulfasalazine may generate falsely decreased results for ALT. Performed By: #### L IPID ####[id number] [place] [address] Anion gap 3 molar conc 13 mmol/L Normal 10 - 20 [facility] Comment on above: Order Comment: Dr Perry parra notified, 07/26/2017 15:10 Performed By: #### L IPID ####[id number] [place] [address] AST enzyme act/vol 22 U/L Normal 9 - 39 [facility] Comment on above: Order Comment: Dr Perry parra notified, 07/26/2017 15:10 Performed By: #### L IPID ####[address] [place] [address] Bilirubin mass conc 0.4 mg/dL Normal 0.0 - 1.2 [facility] Comment on above: Order Comment: Dr Perry parra notified, 07/26/2017 15:10 Performed By: #### L IPID ####[address] [place] [address] Calcium mass conc 13.2 mg/dL Critically high 8.6 - 10.3 [facility] Comment on above: Order Comment: Dr Perry parra notified, 07/26/2017 15:10 Result Comment: Dr Henrique oneal notified, 07/26/2017 15:10 Performed By: #### L IPID ####[id number] [place] [address] Chloride molar conc 98 mmol/L Normal 98 - 107 [facility] Comment on above: Order Comment: Dr Perry parra notified, 07/26/2017 15:10 Performed By: #### L IPID ####[id number] [place] [address] Creatinine mass conc 1.94 mg/dL High 0.50 - 1.05 [facility] Comment on above: Order Comment: Dr Perry parra notified, 07/26/2017 15:10 Performed By: #### L IPID ####[address] [place] [address] GFR- AM. 30 mL/min/1.73m2 Abnormal >60 [facility] Comment on above: Order Comment: Dr Perry parra notified, 07/26/2017 15:10 Result Comment: CALC ULATIONS OF ESTIMATED GFR ARE PERFORMED USING THE MDRD STUDY EQUATION FOR THE IDMS-TRACEABLE CREATININE METHODS. CLIN CHEM 2007;53:766-72 Performed By: #### L IPID ####[id number] [place] [address] GFR-NON AM. 25 mL/min/1.73m2 Abnormal >60 [facility] Comment on above: Order Comment: Dr Perry parra notified, 07/26/2017 15:10 Performed By: #### L IPID ####[address] [place] [address] Glucose mass conc 111 mg/dL High 74 - 99 [facility] Comment on above: Order Comment: Dr Perry parra notified, 07/26/2017 15:10 Performed By: #### L IPID ####[address] [place] [address] HCO3 molar conc (Bld) 30 mmol/L Normal 21 - 32 [facility] Comment on above: Order Comment: Dr Perry parra notified, 07/26/2017 15:10 Performed By: #### L IPID ####[facility] [place] [address] Potassium molar conc 4.8 mmol/L Normal 3.5 - 5.3 [facility] Comment on above: Order Comment: Dr Perry parra notified, 07/26/2017 15:10 Performed By: #### L IPID ####[facility] [place] [address] Protein mass conc 6.6 g/dL Normal 6.4 - 8.2 [facility] Comment on above: Order Comment: Dr Perry parra notified, 07/26/2017 15:10 Performed By: #### L IPID ####[facility] [place] [address] Sodium molar conc 136 mmol/L Normal 136 - 145 [facility] Comment on above: Order Comment: Dr Perry parra notified, 07/26/2017 15:10 Performed By: #### L IPID ####[id number] [place] [address] Urea nitrogen mass conc 43 mg/dL High 6 - 23 [facility] Comment on above: Order Comment: Dr Perry parra notified, 07/26/2017 15:10 Performed By: #### L IPID ####[id number] [place] [address] CT HEAD WO CONTRASTon 2017 CT HEAD [...] PROCESSElectronically signed by: ALTAGRACIA MELO MD Normal [facility] EMR ADDONon 07-26-2017 ADDON CONFIRMATION REQUEST REC'D Normal [facility] Comment on above: Performed By: #### L IPID ####[id number] [place] [address] LACTATEon 07-26-2017 Lactate molar conc 1.1 mmol/L Normal 0.4 - 2.0 [facility] Comment on above: Result Comment: Hali puncture immediately after or during the administration of Metamizole may lead to falsely low results. Testing should be performed immediately prior to Metamizole dosing. Performed By: #### L IPID ####[address] [address] LIPASEon 07-26-2017 Lipase enzyme act/vol 57 U/L Normal 9 - 82 [facility] Comment on above: Result Comment: Hali puncture immediately after or during the administration of Metamizole may lead to falsely low results. Testing should be performed immediately prior to Metamizole dosing. Performed By: #### L IPID ####[id number] [place] [address] PT/INRon 07-26-2017 INR Coag RelTime (PPP) 1.2 {INR} High 0.9 - 1.1 [facility] Comment on above: Performed By: #### L IPID ####[address] [address] Prothrombin time (PT) Coag time (PPP) 13.3 s High 9.8 - 12.7 [facility] Comment on above: Performed By: #### L IPID ####[address] [address] Patient Profile - Adult v2on 07-26-2017 Protein mass conc Profile:Initial Info :How to be AddressedAliceSpoken Language PreferredEnglish (1)Are you currently using the Personal Electronic Health Record or [facility]ICnoStated Reason for AdmissionI wasn't respondingArrived Fromemergency departmentPatient Belongingsremains with patientPatient Belongings Remaining with Patientclothing; dental applianceMedications Brought to Hospitalno General Health:Weight in kg40.6 kilogram(s)Weight in lbs89.7 pound(s)Height in feet4 feetHeight in cxmuev62 inch(es)Height in cm147.3 centimeter(s)BMI (kg/m2)18.712 square meterWeight Methodactual (measured)Scale TypebedHeight Methodestimated [facility] Based Care:How would you like to [...] Arrangementsnursing homeResource/Environmental ConcernsnoneAnticipated Transition Toinpatient rehabilitation facility; oysterman carefacilityServices Anticipated at Transitioncase cable installation manager; lead systems architect; skilled nursingSignificant IndicatorsComplete Information Review:? Allergies, Home [...] - Adult v2 07/09/2017 10:08 AM Normal [facility] Provider Note - EDon 018 Protein mass conc Time Seen:? Time Iwvy60-Pge-9791 13:49 Triage Vital Signs:? Triage Information Most [...] Signs:? Objective Information T PRBP SpO2O2(LPM) %FiO2 Ukczzc66-Tcx-1532 14:05:00-36.62734691/57 98 supplemental O2 Lab Results:? Results I have reviewed these laboratory results: Brain Natriuretic Peptide [Hgtiv81-Cza-6882 15:10:00], Urinalysis [Drawn 26-Jul-2017 15:06:00], Urinalysis,Microscopic [Drawn 26-Jul-2017 15:06:00], Comprehensive Metabolic Panel [Llryq24-Ihz-5336 14:34:00], Complete Blood Count + Differential [Drawn 03-Xsj-162350:34:00], PT + INR, Plasma [Drawn 26-Jul-2017 14:34:00], RBC Morphology [Bquko59-Cwx-5158 14:34:00], Lipase, Serum [Drawn 26-Jul-2017 14:34:00], Lactate,Level [Drawn 26-Jul-2017 14:34:00], Troponin I, Serum [Drawn 67-Hwr-014816:34:00].Brain Natriuretic Cahupmk94-Kgo-3909 15:10:00 ResultValueReference RangeBrain Natriuretic Kedhhkl603 - 99 pg/mL Qgodbvjtgy62-Sgo-1752 15:06:00 ResultValueReference RangeColor, UrineYELLOW Reference Range: STRAW,YELLOWAppearance, UrineHAZYCLEARSpecific [place], Urine1.0091.005 - 1.035pH, Urine6.05.0 - 8.0Protein, UrineNEGATIVENEGATIVE mg/dLGlucose, UrineNEGATIVENEGATIVE mg/dLBlood, UrineSMALL(1+) ANEGATIVEKetones, UrineNEGATIVENEGATIVE mg/dLBilirubin, UrineNEGATIVENEGATIVEUrobili nogen, Urine<2.00.0 - 1.9 mg/dLNitrite, UrineNEGATIVENEGATIVELeukocy te Esterase, UrineMODERATE(2+) ANEGATIVE Urinalysis, Ibctytzhxjt54-Ovw-7160 15:06:00 ResultValueReference RangeWhite Cells8 A0 - 5 /HPFRed Blood Cells2 A0 - 5 /HPFEpithelial Cells, Vtxgwziz4Nddolgtlge Cells, Transitional<1Bacteria, Urine4+ AMucousFEWHyaline Casts3+ AAmorphous Crystals1+ Comprehensive Metabolic Icrxy18-Sqy-8071 14:34:00 ResultValueReference RangeLab Comment:Dr Vance notified, 07/26/2017 15:10Glucose, Tqbsy037 H74 - 99 mg/qWFF368930 - 145 mmol/LK4.83.5 - 5.3 mmol/RLP6145 - 107 mmol/LBicarbonate, Ztsgi0663 - 32 mmol/LAnion Gap, Kkibj3991 - 20 mmol/LBUN43 H6 - 23 mg/dLCREAT1.94 H0.50 - 1.05 mg/dLGFR-Non Kancgxam56 A>60 mL/min/1.99r6KQE-Vyvybcb Bgtapasd20 A>60 mL/min/1.83p5Bgrpdsg, Serum13.2 HH8.6 - 10.3 mg/dLALB3.0 L3.4 - 5.0 g/oEVAKE8669 - 136 U/LT Pro6.66.4 - 8.2 g/Rashi Bili0.40.0 - 1.2 mg/dLAlanine Aminotransferase, Zbpne751 - 45 U/LAspartate Transaminase, Yhctj871 - 39 U/L Complete Blood Count + Qvujnbtioyqz03-Ojm-0656 14:34:00 ResultValueReference RangeWhite Blood Cell Count10.54.4 - 11.3 x10E9/LRed Blood Cell Count3.33 L4.00 - 5.20 x10E12/LHGB11.0 L12.0 - 16.0 g/dLHCT34.2 L36.0 - 46.0 %GPV263 H80 - 100 xWBJBF23.232.0 - 36.0 g/nDDWL766559 - 450 x10E9/LRDW-CV13.311.5 - 14.5 %Neutrophil %86.540.0 - 80.0 %Immature Granulocytes %0.50.0 - 0.9 %Lymphocyte %10.613.0 - 44.0 %Monocyte %2.02.0 - 10.0 %Eosinophil %0.20.0 - 6.0 %Basophil %0.20.0 - 2.0 %Neutrophil Count9.11 H1.60 - 5.50 x10E9/LLymphocyte Count1.110.80 - 3.00 x10E9/LMonocyte Count0.210.05 - 0.80 x10E9/LEosinophil Count0.020.00 - 0.40 x10E9/LBasophil Count0.020.00 - 0.10 x10E9/L PT + INR, Ihvoee57-Trs-8795 14:34:00 ResultValueReference RangeProthrombin Time, Ckqoct60.3 H9.8 - 12.7 secInternational Normalized Ratio, Plasma1.2 H0.9 - 1.1 RBC Lgnmtowylv82-Kpn-4881 14:34:00 ResultValueReference RangeRed Blood Cell MorphologySEE COMMENT NO SIGNIFICANT RBC ABNORMALITIES SEEN ONSMEAR REVIEW. Lipase, Zhlwd58-Hdo-8643 14:34:00 ResultValueReference RangeLipase, Mbgul845 - 82 U/L Lactate, Iyfex22-Vay-9589 14:34:00 ResultValueReference RangeLactate, Level1.10.4 - 2.0 mmol/L Troponin I, Jnzpl99-Isd-7060 14:34:00 ResultValueReference RangeTroponin I, Serum0.030.00 - 0.03 ng/mL Diagnostic Imaging Results Review: Radiology Results:? Results Impression: NO ACUTE INTRACRANIAL PROCESS CT Head without Contrast [Jul 26 2017 3:46PM] Impression: Mildly displaced fractures of the right 8th and 9th ribs. Otherwiseno definite active disease in the chest identified. Xray Chest 1 View [Jul 26 2017 3:26PM] EKG Results:? EKG Date/Kcij21-Qpc-5238 13:53? Rate59? CommentsSinus bradycardia with a right [...] vancomycin earlier fewweeks prior presenting from a retirement facility at the recommendation ofher primary care [...] Triage - ED 07/26/2017 2:05 PM Normal [facility] RED CELL MORPHOLOGYon 2017 RBC morphology finding Nom (Bld) SEE COMMENT Normal [facility] Comment on above: Result Comment: NO S IGNIFICANT RBC ABNORMALITIES SEEN ONSMEAR REVIEW. Performed By: #### L IPID ####[facility] [place] [address] TROPONIN Ion 07-26-2017 Troponin I.cardiac mass conc 0.03 ng/mL Normal 0.00 - 0.03 [facility] Comment on above: Result Comment: [...] testing is performed using differenttesting methodology at [facility] than at [facility]. Direct result comparisons should onlybe made within the same method. Performed By: #### L IPID ####[facility] [place] [address] UA MICROSCOPICon 07-26-2017 AMORPHOUS CRYSTAL 1+ /HPF Normal [facility] Comment on above: Performed By: #### L IPID ####[facility] [place] [address] BACTERIA 4+ /HPF Abnormal [facility] Comment on above: Performed By: #### L IPID ####[address] [place] [address] HYALINE CAST 3+ /LPF Abnormal [facility] Comment on above: Performed By: #### L IPID ####[facility] [place] [address] MUCUS FEW Normal [facility] Comment on above: Performed By: #### L IPID ####[facility] [place] [address] RBC 2 /HPF Abnormal 0-5 [facility] Comment on above: Performed By: #### L IPID ####[address] [place] [address] SQUAMOUS EPITH. CELLS 1 /HPF Normal [facility] Comment on above: Performed By: #### L IPID ####[id number] [place] [address] TRANSITIONAL EPITH.CELLS <1 Normal [facility] Comment on above: Performed By: #### L IPID ####[address] [place] [address] WBC 8 /HPF Abnormal 0-5 [facility] Comment on above: Performed By: #### L IPID ####[address] [place] [address] URINALYSISon 07-26-2017 APPEARANCE HAZY Normal CLEAR [facility] Comment on above: Performed By: #### L IPID ####[id number] [place] [address] BILIRUBIN Negative Normal NEGATIVE [facility] Comment on above: Performed By: #### L IPID ####[address] [place] [address] BLOOD SMALL(1+) Abnormal NEGATIVE [facility] Comment on above: Performed By: #### L IPID ####[address] [place] [address] COLOR YELLOW Normal STRAW,YELL OW [facility] Comment on above: Performed By: #### L IPID ####[facility] [facility] [place] [address] GLUCOSE Negative Normal NEGATIVE [facility] Comment on above: Performed By: #### L IPID ####[facility] [facility] [place] [address] KETONES Negative Normal NEGATIVE [facility] Comment on above: Performed By: #### L IPID ####[facility] [place] [address] LEUKOCYTE ESTERASE MODERATE(2+) Abnormal NEGATIVE [facility] Comment on above: Performed By: #### L IPID ####[facility] [place] [address] NITRITE Negative Normal NEGATIVE [facility] Comment on above: Performed By: #### L IPID ####[facility] [place] [address] pH 6.0 Normal 5.0 - 8.0 [facility] Comment on above: Performed By: #### L IPID ####[address] [place] [address] Protein mass conc Negative Normal NEGATIVE [facility] Comment on above: Performed By: #### L IPID ####[address] [place] [address] SPECIFIC GRAVITY 1.009 Normal 1.005 - 1.035 [facility] Comment on above: Performed By: #### L IPID ####[facility] [facility] [place] [address] UROBILINOGEN <2.0 Normal 0.0 - 1.9 [facility] Comment on above: Performed By: #### L IPID ####[address] [facility] [place] [address] URINE CULTURE,BACTERIALon URINE CULTURE,BACTERIAL PATIENT: KATHERINE JUDGE LOCATION: [address]#: [id number] : [birth year] AGE: SEX: F ORDERED BY: TOMMY MENDEZ: URINE COLLECTED: 07/26/17 15:06ANTIBIOTICS AT ESDRAS.: RECEIVED : 07/27/17 09:18SITE: Straight Cath R E S U L T S URINE CULTURE,BACTERIAL FINAL 07/28/17 09:31 MULTIPLE ORGANISMS PRESENT, PROBABLE CONTAMINATION PLEASE REPEAT CULTURE. Normal [facility] Comment on above: Performed By: #### L IPID ####[facility] [place] [address] URINE CULTURE,BACTERIAL PATIENT: KATHERINE JUDGE LOCATION: [address]#: [id number] : [birth year] AGE: SEX: F ORDERED BY: TOMMY MENDEZ: URINE COLLECTED: 07/26/17 15:06ANTIBIOTICS AT ESDRAS.: RECEIVED : 07/27/17 09:44SITE: R E S U L T S URINE CULTURE,BACTERIAL FINAL 07/28/17 09:24 NO SIGNIFICANT GROWTH. Normal [facility] Comment on above: Performed By: #### L IPID ####[address] [place] [address] BASIC METABOLIC PANELon 06-0 Anion gap 3 molar conc 14 mmol/L Normal 10 - 20 [facility] Comment on above: Performed By: #### L IPID ####[facility] [place] [address] Calcium mass conc 8.9 mg/dL Normal 8.6 - 10.3 [facility] Comment on above: Performed By: #### L IPID ####[address] [place] [address] Chloride molar conc 102 mmol/L Normal 98 - 107 [facility] Comment on above: Performed By: #### L IPID ####[facility] [place] [address] Creatinine mass conc 0.97 mg/dL Normal 0.50 - 1.05 [facility] Comment on above: Performed By: #### L IPID ####[address] [place] [address] GFR- AM. 67 mL/min/1.73m2 Normal >60 [facility] Comment on above: Result Comment: CALC ULATIONS OF ESTIMATED GFR ARE PERFORMED USING THE MDRD STUDY EQUATION FOR THE IDMS-TRACEABLE CREATININE METHODS. CLIN CHEM 2007;53:766-72 Performed By: #### L IPID ####[facility] [place] [address] GFR-NON AM. 55 mL/min/1.73m2 Abnormal >60 [facility] Comment on above: Performed By: #### L IPID ####[address] [place] [address] Glucose mass conc 98 mg/dL Normal 74 - 99 [facility] Comment on above: Performed By: #### L IPID ####[address] [place] [address] HCO3 molar conc (Bld) 22 mmol/L Normal 21 - 32 [facility] Comment on above: Performed By: #### L IPID ####[address] [place] [address] Potassium molar conc 4.2 mmol/L Normal 3.5 - 5.3 [facility] Comment on above: Performed By: #### L IPID ####[address] [place] [address] Sodium molar conc 134 mmol/L Low 136 - 145 [facility] Comment on above: Performed By: #### L IPID ####[address] [place] [address] Urea nitrogen mass conc 31 mg/dL High 6 - 23 [facility] Comment on above: Performed By: #### L IPID ####[address] [place] [address] Daily Progress Note-Surgeryo n 07-16-2017 Protein mass conc Service: Surgery Sub jective Data:KATHERINE JUDGE is a 82 year old Female who is Hospital Day # 8. MUCH LESS CONFUSED / CR ELEVATED. Objective Data: Objective Information:T JOIOTwF3Aestm09.47653826/669 2%Date/Time07/16 6: 6: 6: 6: 6:51Range(36.2C - [...] Updated: 16-Jul-2017 07:23 by Manny Arana) Normal [facility] BASIC METABOLIC PANELon 06-0 Anion gap 3 molar conc 16 mmol/L Normal 10 - 20 [facility] Comment on above: Performed By: #### L ACT ####[address] [address] Calcium mass conc 9.4 mg/dL Normal 8.6 - 10.3 [facility] Comment on above: Performed By: #### L ACT ####[address] [place] [address] Chloride molar conc 99 mmol/L Normal 98 - 107 [facility] Comment on above: Performed By: #### L ACT ####[address] [address] Creatinine mass conc 1.42 mg/dL High 0.50 - 1.05 [facility] Comment on above: Performed By: #### L ACT ####[address] [place] [address] GFR- AM. 42 mL/min/1.73m2 Abnormal >60 [facility] Comment on above: Result Comment: CALC ULATIONS OF ESTIMATED GFR ARE PERFORMED USING THE MDRD STUDY EQUATION FOR THE IDMS-TRACEABLE CREATININE METHODS. CLIN CHEM 2007;53:766-72 Performed By: #### L ACT ####[address] [address] GFR-NON AM. 35 mL/min/1.73m2 Abnormal >60 [facility] Comment on above: Performed By: #### L ACT ####[address] [place] [address] Glucose mass conc 91 mg/dL Normal 74 - 99 [facility] Comment on above: Performed By: #### L ACT ####[address] [place] [address] HCO3 molar conc (Bld) 24 mmol/L Normal 21 - 32 [facility] Comment on above: Performed By: #### L ACT ####[facility] [place] [address] Potassium molar conc 5.1 mmol/L Normal 3.5 - 5.3 [facility] Comment on above: Performed By: #### L ACT ####[address] [place] [address] Sodium molar conc 134 mmol/L Low 136 - 145 [facility] Comment on above: Performed By: #### L ACT ####[address] [address] Urea nitrogen mass conc 27 mg/dL High 6 - 23 [facility] Comment on above: Performed By: #### L ACT ####[address] [address] CBCon 07-15-2017 Erythrocyte distribution width Auto Ratio (RBC) 15.1 % High 11.5 - 14.5 [facility] Comment on above: Performed By: #### L ACT ####[address] [address] Hematocrit Auto Volume Fraction (Bld) 32.1 % Low 36.0 - 46.0 [facility] Comment on above: Performed By: #### L ACT ####[address] [address] Hemoglobin mass conc (Bld) 10.5 g/dL Low 12.0 - 16.0 [facility] Comment on above: Performed By: #### L ACT ####[address] [address] MCHC Auto mass conc (RBC) 32.7 g/dL Normal 32.0 - 36.0 [facility] Comment on above: Performed By: #### L ACT ####[address] [address] MCV Auto Entitic volume (RBC) 105 fL High 80 - 100 [facility] Comment on above: Performed By: #### L ACT ####[address] [address] Platelets Auto #/vol (Bld) 715 10*3/uL High 150 - 450 [facility] Comment on above: Performed By: #### L ACT ####[facility] [place] [address] RBC Auto #/vol (Bld) 3.06 x10E12/L Low 4.00 - 5.20 [facility] Comment on above: Performed By: #### L ACT ####[facility] [place] [address] WBC Auto #/vol (Bld) 12.9 10*3/uL High 4.4 - 11.3 [facility] Comment on above: Performed By: #### L ACT ####[facility] [place] [address] Daily Progress Note-Samarao n 07-15-2017 Protein mass conc Service: Surgery Sub jective Data:KATHERINE JUDGE is a 82 year old Female who is Hospital Day # 7. Patient only has complaint of sinus congestion. Reports abd pain is unchangedfrom yesterday. Denies fever, chills, nausea, vomiting. Passing gas, unsure ifshe passed stool. Denies feeling any pain at this time. Objective Data: Objective Information: T RZVMKyC8Bwaha47.71498099/749 2%Date/Time07/15 7: 7: 7: 7: 7:22Range(36C - [...] a Day11. Simvastatin: 40 mg Oral At Idflrqg56. Vancomycin Oral Liquid: 125 mg Oral Every [...] to be discussed with Dr Sumit Hendrix, [facility] Medicine PGY-1#[id number] Electronic Signatures:Manny Arana) (Signed 15-Jul-2017 17:05)Authored: Signature/Cosignature/Attest ationCo-Signer: Service, Subjective Data, Objective Data, Assessment and Plan,Signature/Cosignature/A ttestationAftab Hendrix (Resident)) (Signed 15-Jul-2017 08:43)Authored: Service, Subjective Data, Objective Data, Assessment and Plan,Signature/Cosignature/A ttestation Last Updated: 15-Jul-2017 17:05 by Manny Aarna) Normal [facility] Discharge Wqvgost4ka 018 Protein mass conc Discharge Orders:Ant icipated Discharge Date:? 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 On the floor she experienced some altered [...] in satisfactory condition for discharge to [facility] facility for continued monitoring and care. [...] Therapy Orders:? Occupational Therapy OrdersEval and Treat ([facility]) 2times/day? Physical Therapy OrdersEval and Treat ([facility]) 2times/day Provider Follow Up:? Physician To Follow at Skilled/RehabAttending Physician at Skilled/Rehab Provider FINAL REVIEW of Orders:Final Review:? Final Review of Medication Reconciliation and Orders Completedby Physician? Reviewing ProviderAftab Hendrix DO (Resident) at 17-Jul-2017 10:39:47 Appointments:Follow-Up Appointment 01:? Physician/Dept/Seble Arana? Scheduled Date/Dqdq92-Zjv-5057 13:45? [facility] [phone] Gold Form - Nursing Summary:Special Treatments/Procedures (in past 14 days):? Chemotherapyno? Dialysisno? IV Medicationno? Oxygen Therapyno? Transfusionsno? Feverno? Radiationno? Ventilatorno? Tracheostomyno? Suctioningno Nutrition:? Nutritional Statuspoor appetite Sensory/Comfort:? Visionadequate? Hearingadequate? Speechclear? Painyes? Pain Type6-7? Pain LocationGeneralized back pain? Whenfrequently? Pain Relieved Bymedication and positioning Elimination:? Bladdercontinent? Bowelcontinent? Last Bowel Csdeatzc06-Ema-2645? Toiletingdependent Safety:? Siderailsyes? Siderails Number/Reason2? Restraintsno? Sitterno Medication/Hygiene/Mobility: ? Medication Administrationsupervision only Gold Form - [employer] Finder Summary:Referral Information:? Referral [facility]? Referring Facility [facility]? Contact Tabitha Muller [facility]? Contact Phone [phone] Mental & Functional Status:? Mental/Behavioral Statusalert, cooperative? Functional Status Prior To AdmissionIndependent? Mental/Functional CommentIntermittent confusion Electronic Signatures:Ayse Martinez (RN) (Signed 16-Jul-2017 15:24)Authored: Manny Haley) (Signed 17-Jul-2017 11:26)Authored: Gold Form Orders, Provider FINAL REVIEW of Orders, Gold Form -Nursing SummaryCo-Signer: Discharge Orders, Gold Form Orders, Provider FINAL REVIEW ofOrders, Gold Form - Bobbin Loose End Finder SummaryAftab Hendrix (Resident)) (Signed 17-Jul-2017 10:40)Authored: Discharge Orders, Hospital Course (Home Care/Gold Form), ProviderFINAL REVIEW of Wanda Medrano (CLIN COOR) (Signed 15-Jul-2017 15:51)Authored: Gold Form Orders, Gold Form - Bobbin Loose End Finder Summary Last Updated: 17-Jul-2017 11:26 by Manny Arana) [facility] Nutrition Therapy-Follow Upo n 07-15-2017 Nutrition Therapy-Follow Up Assessment Subjective/Objective:Note Type: Follow Up Note Authored by: Registered Dietitian NutritionistPager Number: [phone] Nutrition Note:The patient is a 82 year [...] stapledileocolonic anastomosis on 07/03/17. Was transferred to [facility] acute care.Chest xray on 07/06 showed worsening CHF; IV fluids held and IV Lasix started.Was found with + C.diff on 07/08, started on PO [facility]com[facility]. [facility] for [...] 2 Abdomen Pain 3 Cholelithiasis: Onset Date: 67-Riu-3822Dhdhq failure: Description: Heart failurePNEUMONIA:Diabetes mellitus: Description: Diabetes [...] bowel obstruction (disorder):Acute bowel obstruction: Onset Date: 14-Gwg-7856Dzfld bowel obstruction: Objective Information: T QINEVtY0Pdjhh90.56772183/749 4%Date/Time07/15 14: 16:5907/15 14: 16: 14:48Range(36.6C - 36.9C ) (67 - 82 ) (16 - 18 ) (93 - 160 )/ (58 - 74 ) (92%- 94% )Highest temp of 36.9 C was recorded at 07/15 14:48 Pain at Rest reported at 07/15 10:05: 4 Weights07/15 5:00: Weight in kg (Weight (kg)) 44.86 5:00: Weight in lbs ((lbs)) 98.7 ---- Intake and Output -----Mn/Dy/Year TimeIntakeOutChildren[facility] 2017 10:00 [id number] The Intake and Output Totals for the last 24 hours are:LyoesoIqqdccNwm776hrwuvj ll Height/Weight:Height in feet: 5 feetHeight in [...] (L) Nutrition Labs:Special Chemistry: 03-Jul-2017 10:15, Hemoglobin O7HWmjmbywogc A1C, Level5.3 Diagnosis of Diabetes-Adults Non-Diabetic: < or = 5.6% Increased risk for developing diabetes: 5.7-6.4% Diagnostic of diabetes: > or = 6.5%. Monitoring of Diabetes Age (y) Therapeutic Goal (%) Adults: >18 <7.0 Pediatrics: 13-18 <7.5 7-12 <8.0 0- 6 7.5-8.5 [employer]. Diabetes Care 33(S1), Feb 2009.Estimated Average Opopdft557 Current Active Medications/PN:Clopidogrel, Tablet (PLAVIX)DOSE = 75 mg Oral Daily, 75-Qir-3459Yicfiyrzon SubCutaneous, (LOVENOX)DOSE = 40 mg SubCutaneous Every 24 HoursNotes from Pharmacy: NOTE DOSAGE STRENGTH, 03-Hio-9136Qpfsmwraok, Tablet (LASIX)DOSE = 40 mg Oral Daily, 84-Imd-9899Pkcuprkplo Mononitrate Extended Release, Tablet, Extended Release (IMDUR)DOSE = 60 mg Oral Daily, 26-Pdh-0752Nbqipjwobj, Tablet (PRINIVIL, ZESTRIL)DOSE = 10 mg Oral Daily, 74-Lpe-9003Zuyzzrsixe Tartrate, Tablet (LOPRESSOR)DOSE = 50 mg Oral Every 12 Hours, 15-Qlw-2591Btjvrntqgvgn, Enteric Coated Tablet (PROTONIX)DOSE = 40 mg Oral Daily, 49-Gre-0849Awhgowydnme, Tablet (ZOCOR)DOSE = 40 mg Oral At Bedtime, 32-Xbv-6379Bhjpzaugwy Oral Liquid, DOSE = 125 mg Oral Every 6 Hours, 02-Dqz-4812Bykekpzdh Chloride Extended Release, Tablet, Extended ReleaseDOSE = 40 mEq Oral 2 Times a Day, 78-Ffi-6087Rzypzrxpwv, Capsule (NEURONTIN)DOSE = 300 mg Oral 3 Times a Day, 62-Gsk-9561Xiibad Substitute, SolutionDOSE = 15 mL Oral 4 Times a Day, 15-Jul-2017 Nutrition Orders:Oral Nutritional Supplements, RoutineResource BreezeFlavor Preference: York; Parker, 2 Times a DaySpecial Instructions: Please send Boost Breeze orange at breakfast and BoostArtieze york at dinner, 82-Lhb-8497Xip-Stat 101, Oral - Administer as a scheduled medication. Pour packet into a30 ML medicine cup. Tube Feeding - Standard flush before and afteradministering 3 Times a Day Puknclv9VO (Oral), 31-Dti-8810Iyjk May Participate in Room Service W. Assistance, YesOrder entered from Admission Screens., 38-Wmz-1647Asaw, High Calorie; High Protein, 76-Ucf-3974Svkr Nutritional Supplements, RoutineBoost PuddingFlavor Preference: Vanilla, DailySpecial [...] 18:05 by Silvia Tyler ([place], DEEPA) Normal [facility] BASIC METABOLIC PANELon 06-0 Anion gap 3 molar conc 14 mmol/L Normal 10 - 20 [facility] Comment on above: Performed By: #### L ACT ####[id number] [place] [address] Calcium mass conc 8.9 mg/dL Normal 8.6 - 10.3 [facility] Comment on above: Performed By: #### L ACT ####[address] [place] [address] Chloride molar conc 102 mmol/L Normal 98 - 107 [facility] Comment on above: Performed By: #### L ACT ####[address] [place] [address] Creatinine mass conc 0.69 mg/dL Normal 0.50 - 1.05 [facility] Comment on above: Performed By: #### L ACT ####[address] [place] [address] GFR- AM. >60 Normal >60 [facility] Comment on above: Result Comment: CALC ULATIONS OF ESTIMATED GFR ARE PERFORMED USING THE MDRD STUDY EQUATION FOR THE IDMS-TRACEABLE CREATININE METHODS. CLIN CHEM 2007;53:766-72 Performed By: #### L ACT ####[facility] [place] [address] GFR-NON AM. >60 Normal >60 [facility] Comment on above: Performed By: #### L ACT ####[facility] [place] [address] Glucose mass conc 123 mg/dL High 74 - 99 [facility] Comment on above: Performed By: #### L ACT ####[address] [place] [address] HCO3 molar conc (Bld) 27 mmol/L Normal 21 - 32 [facility] Comment on above: Performed By: #### L ACT ####[address] [place] [address] Potassium molar conc 3.8 mmol/L Normal 3.5 - 5.3 [facility] Comment on above: Performed By: #### L ACT ####[address] [address] Sodium molar conc 139 mmol/L Normal 136 - 145 [facility] Comment on above: Performed By: #### L ACT ####[address] [place] [address] Urea nitrogen mass conc 14 mg/dL Normal 6 - 23 [facility] Comment on above: Performed By: #### L ACT ####[address] [address] CBCon 07-13-2017 Erythrocyte distribution width Auto Ratio (RBC) 14.9 % High 11.5 - 14.5 [facility] Comment on above: Performed By: #### L ACT ####[address] [place] [address] Hematocrit Auto Volume Fraction (Bld) 31.3 % Low 36.0 - 46.0 [facility] Comment on above: Performed By: #### L ACT ####[address] [place] [address] Hemoglobin mass conc (Bld) 11.0 g/dL Low 12.0 - 16.0 [facility] Comment on above: Performed By: #### L ACT ####[address] [address] MCHC Auto mass conc (RBC) 35.1 g/dL Normal 32.0 - 36.0 [facility] Comment on above: Performed By: #### L ACT ####[address] [place] [address] MCV Auto Entitic volume (RBC) 100 fL Normal 80 - 100 [facility] Comment on above: Performed By: #### L ACT ####[address] [place] [address] Platelets Auto #/vol (Bld) 614 10*3/uL High 150 - 450 [facility] Comment on above: Result Comment: Plat elet count verified by smear review. Performed By: #### L ACT ####[address] [place] [address] RBC Auto #/vol (Bld) 3.14 x10E12/L Low 4.00 - 5.20 [facility] Comment on above: Performed By: #### L ACT ####[address] [place] [address] WBC Auto #/vol (Bld) 11.0 10*3/uL Normal 4.4 - 11.3 [facility] Comment on above: Performed By: #### L ACT ####[address] [address] Daily Progress Note-Samarao n 07-13-2017 Protein mass [...] have been stopped. Objective Data: Objective Information:T EETVAyR8Vdxvy13.65604133/799 6%Date/Time07/13 7: 7: 7: 7: 7:03Range(36.7C - [...] Updated: 13-Jul-2017 16:51 by Manny Arana) [facility] GLUCOSE-POCTon 07-13-2017 Glucose mass conc 118 mg/dL High 74 - 99 [facility] Comment on above: Result Comment: This assay has not been validated for use with critically ill patients. Clinical correlation or lab draw is recommended. Performed By: #### L ACT ####[facility] [place] [address] RED CELL MORPHOLOGYon 2017 GIANT PLATELETS Few Normal [facility] Comment on above: Performed By: #### L ACT ####[facility] [place] [address] POLYCHROMASIA Mild Normal [facility] Comment on above: Performed By: #### L ACT ####[address] [place] [address] RBC morphology finding Nom (Bld) See Below Normal [facility] Comment on above: Performed By: #### L ACT ####[facility] [place] [address] US ABD ALEXANDER F/Uon 07-13-2017 US ABD [...] ically signed by: CRYSTAL ROONEY MD Normal [facility] Daily Progress Note-Surgeryo n 07-12-2017 Protein mass conc Consult Type: subseq uent visit/care Service: Surgery Subjective Data:KATHERINE JUDGE is a 82 year old Female who is Hospital Day # 4. HAS BEEN INTERMITTENTLY CONFUSED / STRANGE ORAL MOUTH MOVEMENTS / ON GABAPENTINAND WELLBUTRIN WHICH WAS STOPPED / TAKING PO / HAVING BMS. Objective Data: Objective Information:T [id number]/779 0%Date/Time07/12 7:1263 7:1263 7:1263 7:1263 7:12Range(37C - 37.4C ) [...] Updated: 12-Jul-2017 07:45 by Manny Arana) Normal [facility] BASIC METABOLIC PANELon 06-0 Anion gap 3 molar conc 11 mmol/L Normal 10 - 20 [facility] Comment on above: Performed By: #### C MP ####[address] [place] [address] Calcium mass conc 7.5 mg/dL Low 8.6 - 10.3 [facility] Comment on above: Performed By: #### C MP ####[address] [place] [address] Chloride molar conc 101 mmol/L Normal 98 - 107 [facility] Comment on above: Performed By: #### C MP ####[address] [place] [address] Creatinine mass conc 0.67 mg/dL Normal 0.50 - 1.05 [facility] Comment on above: Performed By: #### C MP ####[address] [place] [address] GFR- AM. >60 Normal >60 [facility] Comment on above: Result Comment: CALC ULATIONS OF ESTIMATED GFR ARE PERFORMED USING THE MDRD STUDY EQUATION FOR THE IDMS-TRACEABLE CREATININE METHODS. CLIN CHEM 2007;53:766-72 Performed By: #### C MP ####[address] [place] [address] GFR-NON AM. >60 Normal >60 [facility] Comment on above: Performed By: #### C MP ####[address] [place] [address] Glucose mass conc 119 mg/dL High 74 - 99 [facility] Comment on above: Performed By: #### C MP ####[address] [place] [address] HCO3 molar conc (Bld) 28 mmol/L Normal 21 - 32 [facility] Comment on above: Performed By: #### C MP ####[address] [place] [address] Potassium molar conc 3.2 mmol/L Low 3.5 - 5.3 [facility] Comment on above: Performed By: #### C MP ####[address] [address] Sodium molar conc 137 mmol/L Normal 136 - 145 [facility] Comment on above: Performed By: #### C MP ####[address] [place] [address] Urea nitrogen mass conc 11 mg/dL Normal 6 - 23 [facility] Comment on above: Performed By: #### C MP ####[address] [place] [address] CBCon 07-11-2017 Erythrocyte distribution width Auto Ratio (RBC) 14.3 % Normal 11.5 - 14.5 [facility] Comment on above: Performed By: #### C MP ####[address] [place] [address] Hematocrit Auto Volume Fraction (Bld) 29.2 % Low 36.0 - 46.0 [facility] Comment on above: Performed By: #### C MP ####[address] [place] [address] Hemoglobin mass conc (Bld) 9.9 g/dL Low 12.0 - 16.0 [facility] Comment on above: Performed By: #### C MP ####[address] [place] [address] MCHC Auto mass conc (RBC) 33.9 g/dL Normal 32.0 - 36.0 [facility] Comment on above: Performed By: #### C MP ####[address] [address] MCV Auto Entitic volume (RBC) 101 fL High 80 - 100 [facility] Comment on above: Performed By: #### C MP ####[address] [address] Nucleated RBC/100 WBC Ratio (Bld) 0.2 /100 WBC Abnormal 0.0-0.0 [facility] Comment on above: Performed By: #### C MP ####[address] [address] Platelets Auto #/vol (Bld) 351 10*3/uL Normal 150 - 450 [facility] Comment on above: Performed By: #### C MP ####[address] [address] RBC Auto #/vol (Bld) 2.89 x10E12/L Low 4.00 - 5.20 [facility] Comment on above: Performed By: #### C MP ####[address] [address] WBC Auto #/vol (Bld) 13.8 10*3/uL High 4.4 - 11.3 [facility] Comment on above: Performed By: #### C MP ####[address] [address] GLUCOSE-POCTon 07-11-2017 Glucose mass conc 113 mg/dL High 74 - 99 [facility] Comment on above: Result Comment: This assay has not been validated for use with critically ill patients. Clinical correlation or lab draw is recommended. Performed By: #### C MP ####[address] [address] MAGNESIUMon 07-11-2017 Magnesium mass conc 1.62 mg/dL Normal 1.60 - 2.40 [facility] Comment on above: Performed By: #### C MP ####[place] [address] Daily Progress Note-Melly merino 07-10-2017 Protein mass conc Service: Surgery Sub jective Data:KATHERINE JUDGE is a 82 year old Female who is Hospital Day # 2. Additional Information:Patient has not had any further bowel movements despite positive C. dif, on POvancomycin. Nurse reports patient was confused again overnight pain medicationwas switched to Toradol and Percocet made as needed. Objective Data: Objective Information:T [id number]/819 3%Date/Time07/10 6:5507/10 6:5507/10 6:5507/10 6:5507/10 6:55Range(36C - [...] reviewed these laboratory results: Complete Blood Count [Gymjg83-Aog-0124 04:03:00], Basic Metabolic Panel [Drawn 09-Jul-2017 04:03:00],Magnesium, [...] Last Updated: 10-Jul-2017 12:51 by Manny Arana) [facility] Discharge Planning Noteon Discharge Planning Note Discharge Needs Assessment:? Discharge Planning Assessment Xrvq91-Gfd-2802? Discharge Planning Assessment Completed byJavier PERALTA Patient Learning:? Factors that Impact Ability to Learnnone(1) Other Factors:? Functional Screen: In the recent/past 2-4 weeks, patient or family havenoticedno issues that require a rehabilitation consult at this time(1) Discharge Needs:? [facility]:Discharge Plannin07/10/17 1453 - SWING [...] she will be ready to d/c with [facility] on July 17. Family isconcerned that she [...] [facility] [...] Patient statedthat she has a membership with [employer], I call the [employer]. [facility] is only for 911 calls. They do not provide communitytransportation. Discussed possible Community Care cost of $50 for ambulette and$5.00/mile following. Family is in agreement. [facility]. Javier Muller RNCC Electronic Signatures:Som Chaudhari (CLIN COOR) (Signed 14-Jul-2017 13:32)Authored: Discharge Planning Wanda Cheung (CLIN COOR) (Signed 17-Jul-2017 11:49)Authored: Discharge Planning Note Last Updated: 17-Jul-2017 11:49 by Wanda Muller (CLIN COOR) References:1. Data Referenced From Admission Risk Screen - Adult 07/09/2017 09:59 AM Normal [facility] Nutrition Therapy-Assessment - -Swing Bedon 07-10-2017 Nutrition Therapy-Assessment - -Swing Bed Assessment Subjective/Objective:Note Type: Assessment -Swing Bed Note Authored by: Registered Dietitian NutritionistPager Number: [phone] Nutrition Note:The patient is a 82 year [...] stapledileocolonic anastomosis on 07/03/17. Was transferred to [facility] acute care.Chest xray on 07/06 showed worsening CHF; IV fluids held and IV Lasix started.Was found with + C.diff on 07/08, started on PO vancomycin. [facility] for [...] bowel obstruction (disorder):Acute bowel obstruction: Onset Date: 56-Qfu-2913Ytrixslubgu abdominal pain (finding): Chronic:Fluid overload pulmonary edema:Clostridium difficile infection:Diarrhea: Other Dx/Proc:Gastrointestinal bleeding: Description: Gastrointestinal bleeding1 Colitis, 2 Abdomen Pain 3 Cholelithiasis: Onset Date: 92-Wfh-1476Kwdnw failure: Description: Heart failurePNEUMONIA:Diabetes mellitus: Description: Diabetes [...] bowel obstruction (disorder):Acute bowel obstruction: Onset Date: 10-Yys-7926Elpvs bowel obstruction: Objective Information: T ONMOFdK6Gzphy28.40970156/689 3%Date/Time07/10 14: 14: 14: 14: 14:18Range(36C - 37.3C ) (80 - 85 ) (16 - 20 ) (108 - 146 )/ (68 - 81 ) (93% -97% )Highest temp of 37.3 C was recorded at 07/10 6:55 Pain at Rest reported at 07/10 15:25: 8 Weights07/10 16:10: Weight in lbs ((lbs)) 120.46/1 16:10: BMI (kg/m2) (BMI (kg/m2)) 22.0386/1 5:00: Weight in kg (Weight (kg)) 49 ---- Intake and Output -----Mn/Dy/Year TimeIntakeOutputNetJun 2017 2:00 [id number] 2017 6:00 ty101Mul 2017 10:00 pm000 Height/Weight:Height in feet: 5 [...] 14:51 Nutrition Labs:Special Chemistry: 03-Jul-2017 10:15, Hemoglobin K1THmrhegqtzd A1C, Level5.3 Diagnosis of Diabetes-Adults Non-Diabetic: < or = 5.6% Increased risk for developing diabetes: 5.7-6.4% Diagnostic of diabetes: > or = 6.5%. Monitoring of Diabetes Age (y) Therapeutic Goal (%) Adults: >18 <7.0 Pediatrics: 13-18 <7.5 7-12 <8.0 0- 6 7.5-8.5 [employer]. Diabetes Care 33(S1), Feb 2009.Estimated Average Aqckxuh970 Current Active Medications/PN:buPROPion Extended Release (24 hour), Tablet, Extended Release (WELLBUTRINXL)DOSE = 150 mg Oral Every 24 Hours, 99-Rhc-9611Ojnnskjkcmu, Tablet (PLAVIX)DOSE = 75 mg Oral Daily, 73-Fbr-8756Totidhuavo SubCutaneous, (LOVENOX)DOSE = 40 mg SubCutaneous Every 24 HoursNotes from Pharmacy: NOTE DOSAGE STRENGTH, 27-Jry-5483Tcjgujuvnh, Tablet (LASIX)DOSE = 40 mg Oral Daily, 56-Doe-3141Brysqnerhx, Capsule (NEURONTIN)DOSE = 800 mg Oral 3 Times a Day, 74-Ope-9748Gvchlklrvw Mononitrate Extended Release, Tablet, Extended Release (IMDUR)DOSE = 60 mg Oral Daily, 55-Mja-6181Jzmkaxrkxr, Tablet (PRINIVIL, ZESTRIL)DOSE = 10 mg Oral Daily, 57-Hsn-8920Xvuqohihuy Tartrate, Tablet (LOPRESSOR)DOSE = 50 mg Oral Every 12 Hours, 31-Cuk-2583Hqzpgiobkhy Injectable, (ZOFRAN)DOSE = 4 mg IntraVenous Push Every 6 Hours, PRN Nausea & Vomiting, 45-Nbt-4318Stofuhoovj, Tablet (DITROPAN)DOSE = 5 mg Oral 3 Times a Day, 47-Iud-9651htiQTPYMU 5 mg - Acetaminophen 325 mg, Tablet (PERCOCET)DOSE = 1 tablet(s) Oral Every 4 Hours, PRN Pain - Mild (1-3), 25-Waj-3581Kaslcifupmde, Enteric Coated Tablet (PROTONIX)DOSE = 40 mg Oral Daily, 67-Kxn-7712Pdeyxpifz Chloride Powder Packet, (K-SHAUN)DOSE = 40 mEq Oral Daily, 09-Gpa-4692Kdifbrowtjb, Tablet (ZOCOR)DOSE = 40 mg Oral At Bedtime, 14-Zdy-2540Gjhunl Chloride 0.9% Injectable Flush, via Triple Lumen - Arrow BrandVolume = 10 mL IntraVenous Flush Every 8 Hours and as Needed, 51-Lvj-9062lkcRBJma, Tablet (ULTRAM)DOSE = 50 mg Oral Every 6 Hours, PRN Pain - Mod (4-6), 31-Cqk-8965Aduowgudwg, CapsuleDOSE = 125 mg Oral Every 6 Hours, 09-Jul-2017 Nutrition Orders:Oral Nutritional Supplements, RoutineResource BreezeFlavor Preference: York; Parker, 2 Times a DaySpecial Instructions: Please send Boost Sale orange at breakfast and BoostBrejose angel york at dinner, 53-Bwv-3160Oil-Stat 101, Oral - Administer as a scheduled medication. Pour packet into a30 ML medicine cup. Tube Feeding - Standard flush before and afteradministering 3 Times a Day Dgozmam9XK (Oral), 96-Rtp-3474Ozsr May Participate in Room Service Jacky Braswell, YesOrder entered from Admission Screens., 89-Hpr-1952Knaf, High Calorie; High Protein, 10-Jul-2017 Food/Nutrition Related [...] 17:38 by Silvia Tyler ([place], DEE[place]) Normal [facility] Admission Risk Screen - Adul [...] Learning Preferencesverbal instruction? Cultural Considerationsnone? Developmental Considerationsnone? Baptist Considerationsnone Learning Assessment (Other Learner):? Other learner [...] Spiritual Screen:? Are there any cultural, spiritual, jain practices/values/needs that areimportant for us to know?no CAGE:Is this an injured patient at a Trauma Center ([facility] [place]): no Vaccinations:Vaccination - Influenza Vaccination Screen:? Is [...] 09-Jul-2017 10:07 by Antoinette Hernandez (CINTHYA) Normal [facility] BASIC METABOLIC PANELon 05-3 Anion gap 3 molar conc 9 mmol/L Low 10 - 20 [facility] Comment on above: Performed By: #### L IPAS ####[facility] [place] [address] Calcium mass conc 7.5 mg/dL Low 8.6 - 10.3 [facility] Comment on above: Performed By: #### L IPAS ####[facility] [place] [address] Chloride molar conc 101 mmol/L Normal 98 - 107 [facility] Comment on above: Performed By: #### L IPAS ####[facility] [place] [address] Creatinine mass conc 0.66 mg/dL Normal 0.50 - 1.05 [facility] Comment on above: Performed By: #### L IPAS ####[address] [place] [address] GFR- AM. >60 Normal >60 [facility] Comment on above: Result Comment: CALC ULATIONS OF ESTIMATED GFR ARE PERFORMED USING THE MDRD STUDY EQUATION FOR THE IDMS-TRACEABLE CREATININE METHODS. CLIN CHEM 2007;53:766-72 Performed By: #### L IPAS ####[address] [address] GFR-NON AM. >60 Normal >60 [facility] Comment on above: Performed By: #### L IPAS ####[address] [address] Glucose mass conc 111 mg/dL High 74 - 99 [facility] Comment on above: Performed By: #### L IPAS ####[address] [address] HCO3 molar conc (Bld) 31 mmol/L Normal 21 - 32 [facility] Comment on above: Performed By: #### L IPAS ####[address] [address] Potassium molar conc 3.3 mmol/L Low 3.5 - 5.3 [facility] Comment on above: Performed By: #### L IPAS ####[address] [address] Sodium molar conc 138 mmol/L Normal 136 - 145 [facility] Comment on above: Performed By: #### L IPAS ####[address] [address] Urea nitrogen mass conc 11 mg/dL Normal 6 - 23 [facility] Comment on above: Performed By: #### L IPAS ####[address] [address] CBCon 07-09-2017 Erythrocyte distribution width Auto Ratio (RBC) 13.7 % Normal 11.5 - 14.5 [facility] Comment on above: Performed By: #### L IPAS ####[address] [address] Hematocrit Auto Volume Fraction (Bld) 27.9 % Low 36.0 - 46.0 [facility] Comment on above: Performed By: #### L IPAS ####[address] [address] Hemoglobin mass conc (Bld) 9.4 g/dL Low 12.0 - 16.0 [facility] Comment on above: Performed By: #### L IPAS ####[address] [address] MCHC Auto mass conc (RBC) 33.7 g/dL Normal 32.0 - 36.0 [facility] Comment on above: Performed By: #### L IPAS ####[address] [address] MCV Auto Entitic volume (RBC) 100 fL Normal 80 - 100 [facility] Comment on above: Performed By: #### L IPAS ####[address] [address] Nucleated RBC/100 WBC Ratio (Bld) 0.2 /100 WBC Abnormal 0.0-0.0 [facility] Comment on above: Performed By: #### L IPAS ####[address] [address] Platelets Auto #/vol (Bld) 274 10*3/uL Normal 150 - 450 [facility] Comment on above: Performed By: #### L IPAS ####[address] [address] RBC Auto #/vol (Bld) 2.79 x10E12/L Low 4.00 - 5.20 [facility] Comment on above: Performed By: #### L IPAS ####[address] [address] WBC Auto #/vol (Bld) 12.9 10*3/uL High 4.4 - 11.3 [facility] Comment on above: Performed By: #### L IPAS ####[address] [address] CLOST.DIFF.TOXIN,PCRon 07-09 CLOST.DIFF.TOXIN,PCR DETECTED Abnormal Not Detected [facility] Comment on above: Order Comment: [...] than once per 7 days.+CDIFF CALLED TO YUKIWALTER NIEVES, 07/09/2017 14:51 Performed By: #### L IPAS ####[place] [address] History and Physicalon 07-09 History and Physical History of Present Illness:HPI:Patient is an 82 y/o female with PMHx of SBO and (s/p ELAP in February 2012),known large hiatal hernia, small vessel colon disease, CAD s/p CABG, diastolicCHF, HTN, HLD, depression, and chronic pain, who presented to the [facility] ED on 07/02/17 with sudden [...] received Lovenox for DVT prophylaxis. She received ycncacaqme61tp for acute exacerbation of diastolic CHF. Potassium [...] Every 4 HoursPRN TOPICAL AGENTS: 1. Witch Igorgi Topical: 1 application(s) Topical 2 Times a Day Recent Lab Results: Results: I have reviewed these laboratory results: Complete Blood Count Trending View Wifzll54-Kef-4186 04:03:00 08-Jul-2017 07:37:00 07-Jul-2017 04:53:00 06-Jul-2017 08:19:00White Blood Cell Count12.9 H 8.8 5.2 3.5 LNucleated Erythrocyte Count0.2 A 0.2 A Red Blood Cell Count2.79 L 2.65 L 2.49 L 2.60 LHGB9.4 L 9.0 L 8.6 L 9.0 LHCT27.9 L 26.5 L 25.0 L 26.2 FKVD471 100 100 101 HMCHC33.7 34.0 34.4 34.3JNR694 245 197 190RDW-CV13.7 13.6 13.2 13.7 Basic Metabolic Panel Trending View Knyjia58-Zia-1193 04:03:00 08-Jul-2017 07:37:00 07-Jul-2017 04:53:00Glucose, Ifdiu487 H 108 H 105 YAV051 137 140K3.3 L 3.2 L 2.6 HVGN068 98 98Bicarbonate, Serum31 32 34 HAnion Gap, Serum9 L 10 69UVF74 11 02CHGDY1.66 0.66 0.62GFR-Non >60 >60 >60GFR->60 >60 >60Calcium, Serum7.5 L 7.6 L 7.6 LLab Comment: Samples collected at 0554 07/08/17. Potassium Called- RB Christen Griffin on Med Surg, 07/07/2017 05:38 Magnesium, Serum Trending View Ypzpmo69-Bex-6112 04:03:00 08-Jul-2017 05:30:00 07-Jul-2017 04:53:00Magnesium, Serum1.51 L 1.96 1.48 L Blood Gas, Arterial Trending View Gnoeln83-Sav-3231 05:10:00 06-Jul-2017 15:15:00pH, Arterial7.54 H 7.51 HpCO2, Ymtrimtv05 40pO2, Qvlawakh35 L 51 LPatient-Lqprtygtfno86.0 37.4DTH134 28SO2, Ipksqdyk00 93 LBase Excess-Blood11.5 H 8.2 HBicarbonate, Calculated, Tregozmq39.1 H 31.9 HSite of Arterial PunctureLEFT BRACHIAL LEFT BRACHIALAllen's Test (Collateral Circulation)NON-APPLICABLE NON-APPLICABLE Urinalysis 06-Jul-2017 12:08:00 ResultValueColor, Urine YELLOW Reference Range: STRAW,YELLOWAppearance, Urine CLEARSpecific [place], Urine 1.008pH, Urine 5.0Protein, Urine NEGATIVEGlucose, Urine [...] 22.2 cm2LA Area A2C: 19.3 cm2LA [place] A4C: 5.9 cmLA [place] A2C: 5.4 cmLA Volume Index: 40.5 ml/m2RA VOLUME BY A/L METHOD: Normal Ranges:RA Vol A4C: 17.8 ml (8.3-19.5ml)RA Vol Index A4C: 11.5 ml/m2RA Area A4C: 9.6 cm2RA [place] A4C: 4.4 cmM-MODE MEASUREMENTS: Normal Ranges:Ao Root: [...] electrolyte replacement. # Physical Deconditioning- Admitted for retirement care, rehabilitation- PT/OT # S/p R Colectomy- Pain management: Continue home percocet q4h PRN mild pain, ordered Zttzselxa9r PRN for moderate pain. D/C'd morphine and [...] Prophylaxis: Lovenox 40mg subcutaneous q24h Mike Olson [facility], PGY-1 Signatures/Attestation/Certi fication:Attending Provider ? Inpatient Certification StatementI certify that SNFservices are required to be given on an inpatient basis because of the abovenamed patient's need for retirement care on a continuing basis for thecondition(s) [...] Updated: 09-Jul-2017 14:37 by Manny Arana) Normal [facility] MAGNESIUMon 07-09-2017 Magnesium mass conc 1.51 mg/dL Low 1.60 - 2.40 [facility] Comment on above: Performed By: #### L IPAS ####[id number] [place] [address] Patient Profile - Adult v2on 07-09-2017 Protein mass conc Profile:Initial Info :How to be AddressedNaomi(1)Spoken Language PreferredEnglish (1)Are you currently using the Personal Electronic Health Record or InMage Systems(1)Stated Reason for Admissioninto muscle sickArrived [facility] carePatient BelongingsnoneMedications Brought to [facility] Health:Weight in kg47.7 kilogram(s)Weight in vaj924.1 pound(s)Height in feet5 feetHeight in inches5 inch(es)Height in cm165.1 centimeter(s)BMI (kg/m2)17.499 square meterWeight Methodactual (measured)Scale TypebedHeight Methodstated [facility] Based Care:How would you like to [...] - Adult v2 07/02/2017 8:49 PM Normal [facility] BASIC METABOLIC PANELon 05-3 Anion gap 3 molar conc 10 mmol/L Normal 10 - 20 [facility] Comment on above: Order Comment: Sampl es collected at [facility] 07/08/17. Performed By: #### U AMIC ####[address] [place] [address] Calcium mass conc 7.6 mg/dL Low 8.6 - 10.3 [facility] Comment on above: Order Comment: Sampl es collected at [facility] 07/08/17. Performed By: #### U AMIC ####[address] [address] Chloride molar conc 98 mmol/L Normal 98 - 107 [facility] Comment on above: Order Comment: Sampl es collected at [facility] 07/08/17. Performed By: #### U AMIC ####[address] [address] Creatinine mass conc 0.66 mg/dL Normal 0.50 - 1.05 [facility] Comment on above: Order Comment: Sampl es collected at [facility] 07/08/17. Performed By: #### U AMIC ####[address] [address] GFR- AM. >60 Normal >60 [facility] Comment on above: Order Comment: Sampl es collected at [facility] 07/08/17. Result Comment: CALC ULATIONS OF ESTIMATED GFR ARE PERFORMED USING THE MDRD STUDY EQUATION FOR THE IDMS-TRACEABLE CREATININE METHODS. CLIN CHEM 2007;53:766-72 Performed By: #### U AMIC ####[address] [address] GFR-NON AM. >60 Normal >60 [facility] Comment on above: Order Comment: Sampl es collected at [facility] 07/08/17. Performed By: #### U AMIC ####[address] [address] Glucose mass conc 108 mg/dL High 74 - 99 [facility] Comment on above: Order Comment: Sampl es collected at [facility] 07/08/17. Performed By: #### U AMIC ####[address] [address] HCO3 molar conc (Bld) 32 mmol/L Normal 21 - 32 [facility] Comment on above: Order Comment: Sampl es collected at [facility] 07/08/17. Performed By: #### U AMIC ####[address] [address] Potassium molar conc 3.2 mmol/L Low 3.5 - 5.3 [facility] Comment on above: Order Comment: Sampl es collected at [facility] 07/08/17. Performed By: #### U AMIC ####[address] [address] Sodium molar conc 137 mmol/L Normal 136 - 145 [facility] Comment on above: Order Comment: Sampl es collected at [facility] 07/08/17. Performed By: #### U AMIC ####[address] [address] Urea nitrogen mass conc 11 mg/dL Normal 6 - 23 [facility] Comment on above: Order Comment: Sampl es collected at [facility] 07/08/17. Performed By: #### U AMIC ####[address] [address] CBCon 07-08-2017 Erythrocyte distribution width Auto Ratio (RBC) 13.6 % Normal 11.5 - 14.5 [facility] Comment on above: Performed By: #### U AMIC ####[address] [address] Hematocrit Auto Volume Fraction (Bld) 26.5 % Low 36.0 - 46.0 [facility] Comment on above: Performed By: #### U AMIC ####[address] [address] Hemoglobin mass conc (Bld) 9.0 g/dL Low 12.0 - 16.0 [facility] Comment on above: Performed By: #### U AMIC ####[address] [place] [address] MCHC Auto mass conc (RBC) 34.0 g/dL Normal 32.0 - 36.0 [facility] Comment on above: Performed By: #### U AMIC ####[address] [place] [address] MCV Auto Entitic volume (RBC) 100 fL Normal 80 - 100 [facility] Comment on above: Performed By: #### U AMIC ####[address] [place] [address] Nucleated RBC/100 WBC Ratio (Bld) 0.2 /100 WBC Abnormal 0.0-0.0 [facility] Comment on above: Performed By: #### U AMIC ####[address] [place] [address] Platelets Auto #/vol (Bld) 245 10*3/uL Normal 150 - 450 [facility] Comment on above: Performed By: #### U AMIC ####[address] [address] RBC Auto #/vol (Bld) 2.65 x10E12/L Low 4.00 - 5.20 [facility] Comment on above: Performed By: #### U AMIC ####[address] [address] WBC Auto #/vol (Bld) 8.8 10*3/uL Normal 4.4 - 11.3 [facility] Comment on above: Performed By: #### U AMIC ####[address] [address] Daily Progress Note-Melly merino 07-08-2017 Protein mass conc Service: Surgery Sub [...] brown loose stoolovernight. Objective Data: Objective Information:T ZUMZEfA2Spjwz20.69856527/729 6%Date/Time07/08 6: 6: 6: 6: 6:40Range(36.4C - [...] reviewed these laboratory results: Basic Metabolic Panel [Cclzy87-Frl-2521 07:37:00]. Assessment and Plan: Admitting Dx:Cecal volvulus: [...] and Plan Last Updated: 08-Jul-2017 12:42 by aMnny Arana) Normal [facility] HEMOGLOBIN A1Con 07-08-2017 Glucose mass conc 105 mg/dL Normal [facility] Comment on above: Performed By: #### L IPAS ####[address] [place] [address] Hemoglobin A1c/Hemoglobin.total mass fraction (Bld) 5.3 % Normal [facility] Comment on above: Result Comment: Diag nosis of Diabetes-Adults Non-Diabetic: < or = 5.6% Increased risk for developing diabetes: 5.7-6.4% Diagnostic of diabetes: > or = 6.5%. Monitoring of Diabetes Age (y) Therapeutic Goal (%) Adults: >18 <7.0 Pediatrics: 13-18 <7.5 7-12 <8.0 0- 6 7.5-8.5 [employer]. Diabetes Care 33(S1), Feb 2009. Performed By: #### L IPAS ####[facility] [place] [address] MAGNESIUMon 07-08-2017 Magnesium mass conc 1.96 mg/dL Normal 1.60 - 2.40 [facility] Comment on above: Performed By: #### U AMIC ####[address] [place] [address] ARTERIAL BLOOD GASon 018 JACKIE'S TEST[COLLATERAL CIRCULATION] NON-APPLICABLE Normal [facility] Comment on above: Performed By: #### U AMIC ####[address] [place] [address] SITE OF ARTERIAL PUNCTURE LEFT BRACHIAL Normal [facility] Comment on above: Performed By: #### U AMIC ####[address] [place] [address] BASE EXCESS-BLOOD 11.5 mmol/L High -2.0 - 3.0 [facility] Comment on above: Performed By: #### U AMIC ####[address] [place] [address] FIO2 36 % Normal [facility] Comment on above: Performed By: #### U AMIC ####[address] [address] Oxygen ppres (BldA) 70 mm[Hg] Low 85 - 95 [facility] Comment on above: Performed By: #### U AMIC ####[address] [address] PCO2 41 mmHg Normal 38 - 42 [facility] Comment on above: Performed By: #### U AMIC ####[address] [place] [address] RBC Auto #/vol (Bld) 35.1 mmol/L High 22.0 - 26.0 [facility] Comment on above: Performed By: #### U AMIC ####[address] [place] [address] SO2 97 % Normal 94 - 100 [facility] Comment on above: Performed By: #### U AMIC ####[address] [place] [address] pH (Bld) 7.54 [pH] High 7.38 - 7.42 [facility] Comment on above: Performed By: #### U AMIC ####[address] [address] BASIC METABOLIC PANELon 05-2 Anion gap 3 molar conc 11 mmol/L Normal 10 - 20 [facility] Comment on above: Order Comment: Josselyn dowd Called- RB toNimannifer Elias on Med Surg, 07/07/2017 05:38 Performed By: #### U A ####[address] [address] Calcium mass conc 7.6 mg/dL Low 8.6 - 10.3 [facility] Comment on above: Order Comment: Josselyn dowd Called- RB toJennifer Elias on Med Surg, 07/07/2017 05:38 Performed By: #### U A ####[address] [address] Chloride molar conc 98 mmol/L Normal 98 - 107 [facility] Comment on above: Order Comment: Josselyn dowd Called- RB toNimannifer Elias on Med Surg, 07/07/2017 05:38 Performed By: #### U A ####[place] [address] Creatinine mass conc 0.62 mg/dL Normal 0.50 - 1.05 [facility] Comment on above: Order Comment: Josselyn dowd Called- RB toNimannifer Elias on Med Surg, 07/07/2017 05:38 Performed By: #### U A ####[address] [address] GFR- AM. >60 Normal >60 [facility] Comment on above: Order Comment: Josselyn dowd Called- RB toNimannifer Elias on Med Surg, 07/07/2017 05:38 Result Comment: CALC ULATIONS OF ESTIMATED GFR ARE PERFORMED USING THE MDRD STUDY EQUATION FOR THE IDMS-TRACEABLE CREATININE METHODS. CLIN CHEM 2007;53:766-72 Performed By: #### U A ####[address] [address] GFR-NON AM. >60 Normal >60 [facility] Comment on above: Order Comment: Josselyn dowd Called- RB toNimannifer Elias on Med Surg, 07/07/2017 05:38 Performed By: #### U A ####[address] [place] [address] Glucose mass conc 105 mg/dL High 74 - 99 [facility] Comment on above: Order Comment: Josselyn dowd Called- RB toJennifer Elias on Med Surg, 07/07/2017 05:38 Performed By: #### U A ####[address] [address] HCO3 molar conc (Bld) 34 mmol/L High 21 - 32 [facility] Comment on above: Order Comment: Josselyn correiaum Called- RB toJennifer Elias on Med Surg, 07/07/2017 05:38 Performed By: #### U A ####[address] [address] Potassium molar conc 2.6 mmol/L Critically low 3.5 - 5.3 [facility] Comment on above: Order Comment: Josselyn correiaum Called- RB toJennifer Elias on Med Surg, 07/07/2017 05:38 Result Comment: Hafsa ssium Called- RB toJennifer Elias on Med Surg, 07/07/2017 05:38 Performed By: #### U A ####[address] [address] Sodium molar conc 140 mmol/L Normal 136 - 145 [facility] Comment on above: Order Comment: Josselyn correiaum Called- RB toJennifer Elias on Med Surg, 07/07/2017 05:38 Performed By: #### U A ####[address] [address] Urea nitrogen mass conc 11 mg/dL Normal 6 - 23 [facility] Comment on above: Order Comment: Josselyn correiaum Called- RB toJennifer Elias on Med Surg, 07/07/2017 05:38 Performed By: #### U A ####[address] [address] CBCon 07-07-2017 Erythrocyte distribution width Auto Ratio (RBC) 13.2 % Normal 11.5 - 14.5 [facility] Comment on above: Performed By: #### U A ####[address] [address] Hematocrit Auto Volume Fraction (Bld) 25.0 % Low 36.0 - 46.0 [facility] Comment on above: Performed By: #### U A ####[address] [address] Hemoglobin mass conc (Bld) 8.6 g/dL Low 12.0 - 16.0 [facility] Comment on above: Performed By: #### U A ####[address] [address] MCHC Auto mass conc (RBC) 34.4 g/dL Normal 32.0 - 36.0 [facility] Comment on above: Performed By: #### U A ####[address] [address] MCV Auto Entitic volume (RBC) 100 fL Normal 80 - 100 [facility] Comment on above: Performed By: #### U A ####[address] [address] Platelets Auto #/vol (Bld) 197 10*3/uL Normal 150 - 450 [facility] Comment on above: Performed By: #### U A ####[address] [address] RBC Auto #/vol (Bld) 2.49 x10E12/L Low 4.00 - 5.20 [facility] Comment on above: Performed By: #### U A ####[address] [address] WBC Auto #/vol (Bld) 5.2 10*3/uL Normal 4.4 - 11.3 [facility] Comment on above: Performed By: #### U A ####[address] [address] CHEST 1 VIEWon 07-07-2017 CHEST 1 VIEW [...] laterally andcephalad.Electronically signed by: GAEL CRUZ MD [facility] Daily Progress Note-Cardiolo handyon 07-07-2017 Protein mass conc Service: CardiologySubjective Data:KATHERINE [...] night.Objective Data:Objective Information: T P R BP JaU2Pevyj 36.4 78 18 155/73 97%Date/Time 07/07 14:10 [...] right colectomy-pain meds-encourage IS-Lovenox for DVT prophylaxis2. Pplvgzuathnc-mffxnw-omfc metoprolol, lisinopril, and Imdur-cont to monitor closely3. [...] Updated: 07-Jul-2017 21:46 by Ventura Thacker) Normal [facility] Daily Progress Note-Samarao n 07-07-2017 Protein mass [...] pain.Objective Data:Objective Information: T P R BP JaX1Zdntb 36.6 75 20 152/84 98%Date/Time 07/07 6:48 [...] 04:53:00Result ValueLab Comment: Potassium Called- RB Christen Elias on Med Surg, 07/07/2017 05:38Glucose, Serum 105 [...] Updated: 07-Jul-2017 13:55 by Manny Arana) Normal [facility] Discharge Iwseflf8rf 05-29-2 018 Protein mass conc Discharge Orders:Ant icipated Discharge Date:? 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 Hypokalemia: Catalog Name: [facility] Providers:Provider RoleProvider Name? AttendingManny Arana? ConsultingVentura Thacker? Manny Mcbride P? [facility] Hospital Course (Home Care/Gold Form):Hospital Course:? Hospital [...] 1.96 (07/08), 1.51 (07/09) 07/09/17: Discharge to retirement care for rehabilitation 2/2 todeconditioning as well as continued electrolyte monitoring [...] (Resident) at 09-Jul-2017 07:42:04 Gold Form - Bobbin Loose End Finder Summary:Referral Information:? Referral [facility]? Referring Facility [facility]? Contact Sebastian Chaudhari RN (Industrial Laborer)? Contact Phone [phone] Medicare/Medicaid:? Medicare [id number] Social Security:? Social Security [id number] Mental & Functional Status:? Mental/Behavioral Statusalert? Functional Status Prior To Admissionindependent? Capacity For Independent Living/Nursing Home Planreturn home? Mental/Functional Commentalert and oriented x3 Electronic Signatures:Manny Arana) (Signed 08-Jul-2017 12:35)Authored: Gold Form Orders, Provider FINAL REVIEW of OrdersCo-Signer: Gold Form OrdersSom Chaudhari (CLIN COOR) (Signed 07-Jul-2017 15:04)Authored: Gold Form - Bobbin Loose End Finder SummaryMike Olson ( (Resident)) (Signed 09-Jul-2017 07:42)Authored: Discharge Orders, Hospital Course (Home Care/Gold Form), ProviderFINAL REVIEW of OrdersWanda Muller (CLIN COOR) (Signed 08-Jul-2017 16:40)Authored: Gold Form Orders, Gold Form - Bobbin Loose End Finder Summary Last Updated: 09-Jul-2017 07:42 by Mike Olson ( (Resident)) Normal [facility] EMR ADDONon 07-07-2017 ADDON CONFIRMATION REQUEST REC'D Normal [facility] Comment on above: Performed By: #### U AMIC ####[facility] [place] [address] MAGNESIUMon 07-07-2017 Magnesium mass conc 1.48 mg/dL Low 1.60 - 2.40 [facility] Comment on above: Performed By: #### U AMIC ####[address] [address] ARTERIAL BLOOD GASon 018 JACKIE'S TEST[COLLATERAL CIRCULATION] NON-APPLICABLE Normal [facility] Comment on above: Performed By: #### U A ####[address] [address] SITE OF ARTERIAL PUNCTURE LEFT BRACHIAL Normal [facility] Comment on above: Performed By: #### U A ####[address] [address] BASE EXCESS-BLOOD 8.2 mmol/L High -2.0 - 3.0 [facility] Comment on above: Performed By: #### U A ####[address] [address] FIO2 28 % Normal [facility] Comment on above: Performed By: #### U A ####[address] [address] Oxygen ppres (BldA) 51 mm[Hg] Low 85 - 95 [facility] Comment on above: Performed By: #### U A ####[address] [address] PCO2 40 mmHg Normal 38 - 42 [facility] Comment on above: Performed By: #### U A ####[address] [address] RBC Auto #/vol (Bld) 31.9 mmol/L High 22.0 - 26.0 [facility] Comment on above: Performed By: #### U A ####[address] [address] SO2 93 % Low 94 - 100 [facility] Comment on above: Performed By: #### U A ####[address] [address] pH (Bld) 7.51 [pH] High 7.38 - 7.42 [facility] Comment on above: Performed By: #### U A ####[address] [address] BNPon 07-06-2017 Natriuretic peptide B mass conc (Bld) 760 pg/mL High 0 - 99 [facility] Comment on above: Result Comment: . <1 00 pg/mL - Heart failure vynatbmg403-133 pg/mL - Intermediate probability of acute heart. failure exacerbation. Correlate with clinical. context and patient history. >=300 pg/mL - Heart Failure likely. Correlate with clinical. context and patient history.BNP testing is performed using different testingmethodology at [facility] than at [facility]. Direct result comparisons shouldonly be made within the same method. Performed By: #### U A ####[address] [address] CBCon 07-06-2017 Erythrocyte distribution width Auto Ratio (RBC) 13.7 % Normal 11.5 - 14.5 [facility] Comment on above: Performed By: #### C BCDF ####[address] [address] Hematocrit Auto Volume Fraction (Bld) 26.2 % Low 36.0 - 46.0 [facility] Comment on above: Performed By: #### C BCDF ####[address] [address] Hemoglobin mass conc (Bld) 9.0 g/dL Low 12.0 - 16.0 [facility] Comment on above: Performed By: #### C BCDF ####[address] [address] MCHC Auto mass conc (RBC) 34.4 g/dL Normal 32.0 - 36.0 [facility] Comment on above: Performed By: #### C BCDF ####[address] [address] MCV Auto Entitic volume (RBC) 101 fL High 80 - 100 [facility] Comment on above: Performed By: #### C BCDF ####[address] [address] Platelets Auto #/vol (Bld) 190 10*3/uL Normal 150 - 450 [facility] Comment on above: Performed By: #### C BCDF ####[address] [address] RBC Auto #/vol (Bld) 2.60 x10E12/L Low 4.00 - 5.20 [facility] Comment on above: Performed By: #### C BCDF ####[facility] [place] [address] WBC Auto #/vol (Bld) 3.5 10*3/uL Low 4.4 - 11.3 [facility] Comment on above: Performed By: #### C BCDF ####[facility] [place] [address] CHEST 1 VIEWon 07-06-2017 CHEST 1 VIEW [...] isrecommended.Electronically signed by: SUHAIL ALMANZA MD Normal [facility] CT HEAD WO CONTRASTon 2017 [...] skull fracture.Electronically signed by: SUHAIL ALMANZA MD [facility] Daily Progress Note-Cardiolo handyon 07-06-2017 Protein mass [...] ativanObjective Data:Objective Information: T P R BP PcG2Kwmdn 36.8 101 18 173/87 94%Date/Time 07/06 7:15 [...] contusions or wounds, noclubbingNeurological: alert and oriented e0Kokhckfwvnsyt: Appropriate mood and behaviorSkin: Warm and dryMedication:Medications: [...] right colectomy-pain meds-encourage IS-Lovenox for DVT prophylaxis2. Jjvscmtpytho-rgyuvu-xclw metoprolol, lisinopril, and Imdur-cont to monitor closely3. [...] Updated: 06-Jul-2017 09:54 by Ventura Thacker) Normal [facility] Daily Progress Note-Surgeryo n 07-06-2017 Protein mass [...] NAUSEA.Objective Data:Objective Information: T P R BP QrK9Jnyec 36.4 88 16 147/71 97%Date/Time 07/05 20:00 [...] reviewed these laboratory results: Complete Blood Count [Brhbj27-Wgd-1721 05:18:00], Basic Metabolic Panel [Drawn 05-Jul-2017 05:18:00].Radiology [...] ationLast Updated: 06-Jul-2017 07:42 by Manny Arana) [facility] Nutrition Therapy-Follow Upo n 07-06-2017 Nutrition Therapy-Follow Up Assessment Subjective/Objective:Note Type: Follow UpNote Authored by: Registered Dietitian NutritionistPager Number: [phone] Note:The patient is a 82 year old [...] obstruction (disorder): Acute bowel obstruction: Onset Date: 02-Mef-9739Xuvvdetzc Information:---- Intake and Output -----Mn/Dy/Year Time Intake Output NetMay 2017 2:00 pm 725 250 475May 2017 6:00 am 0 2 -2May 2017 10:00 pm 253 0 253The Intake and Output Totals for the last 24 hours are: Intake Output Net [phone] T P R BP EkV9Zlvpf 37 83 16 154/75 94%Date/Time 07/06 14:17 [...] Urine YELLOW Reference Range: STRAW,YELLOWAppearance, Urine CLEARSpecific [place], Urine 1.008pH, Urine 5.0Protein, Urine NEGATIVEGlucose, Urine [...] Clinician Notes: TO START AT 1700 07/06/17, [id number]-Pyw-3467Jxslclwwl Orders: Clear Liquid Diet, Routine, 05-Jul-2017 Oral Nutritional Supplements, Routine Resource Breeze Flavor Preference: [place]; Parker, 2 Times a Day Special Instructions: Please send Boost Breeze orange at breakfast and BoostBreeze york at dinner, 06-Jul-2017 Pro-Stat 101, Oral - Administer as a scheduled medication. Pour packet into a30 ML medicine cup. Tube Feeding - Standard flush before and afteradministering 3 Times a Day Routine 1 PO (Oral), [id number]-Nlv-9205Qwna/Nutrition Related History:Change in Oral Intake/Appetite: increase -Diet [...] -Not appropriate at this time.Electronic Signatures:Silvia Tyler (ELENITAN, LD) (Signed 06-Jul-2017 17:56) Authored: Assessment Subjective/Objective, Nutrition Focused PhysicalFindings, Estimated Needs, Nutrition Diagnosis, Nutrition Interventions,Nutrition Goals, Nutrition Recommendations, Dietitian Monitoring and EvaluationPlan, Diet EducationLast Updated: 06-Jul-2017 17:56 by Silvia Tyler (RDN, LD) Normal [facility] TROPONIN Ion 07-06-2017 Troponin I.cardiac mass conc 0.02 ng/mL Normal 0.00 - 0.03 [facility] Comment on above: Result Comment: [...] testing is performed using differenttesting methodology at [facility] than at [facility]. Direct result comparisons should onlybe made within the same method. Performed By: #### C BCDF ####[address] [address] UA MICROSCOPICon 07-06-2017 BACTERIA 1+ /HPF Abnormal [facility] Comment on above: Performed By: #### U A ####[address] [address] HYALINE CAST 1+ /LPF Abnormal [facility] Comment on above: Performed By: #### U A ####[address] [address] MUCUS 1+ /LPF Normal [facility] Comment on above: Performed By: #### U A ####[address] [address] RBC Test strip #/vol (U) 0-5 Normal 0-5 [facility] Comment on above: Performed By: #### U A ####[address] [address] SQUAMOUS EPITH. CELLS FEW Normal [facility] Comment on above: Performed By: #### U A ####[address] [address] TRANSITIONAL EPITH.CELLS FEW Normal [facility] Comment on above: Performed By: #### U A ####[address] [address] WBC 0-5 Normal 0-5 [facility] Comment on above: Performed By: #### U A ####[address] [place] [address] URINALYSISon 07-06-2017 APPEARANCE CLEAR Normal CLEAR [facility] Comment on above: Performed By: #### U A ####[address] [place] [address] BILIRUBIN Negative Normal NEGATIVE [facility] Comment on above: Performed By: #### U A ####[address] [address] BLOOD MODERATE(2+) Abnormal NEGATIVE [facility] Comment on above: Performed By: #### U A ####[address] [address] COLOR YELLOW Normal STRAW,YELL OW [facility] Comment on above: Performed By: #### U A ####[address] [address] GLUCOSE Negative Normal NEGATIVE [facility] Comment on above: Performed By: #### U A ####[address] [address] KETONES 5(Trace) Abnormal NEGATIVE [facility] Comment on above: Performed By: #### U A ####[address] [address] LEUKOCYTE ESTERASE TRACE Abnormal NEGATIVE [facility] Comment on above: Performed By: #### U A ####[address] [address] NITRITE Negative Normal NEGATIVE [facility] Comment on above: Performed By: #### U A ####[address] [address] pH 5.0 Normal 5.0 - 8.0 [facility] Comment on above: Performed By: #### U A ####[address] [address] Protein mass conc Negative Normal NEGATIVE [facility] Comment on above: Performed By: #### U A ####[address] [address] SPECIFIC GRAVITY 1.008 Normal 1.005 - 1.035 [facility] Comment on above: Performed By: #### U A ####[address] [address] UROBILINOGEN <2.0 Normal 0.0 - 1.9 [facility] Comment on above: Performed By: #### U A ####[address] [address] BASIC METABOLIC PANELon 05-2 Anion gap 3 molar conc 11 mmol/L Normal 10 - 20 [facility] Comment on above: Performed By: #### C BCDF ####[address] [address] Calcium mass conc 7.7 mg/dL Low 8.6 - 10.3 [facility] Comment on above: Performed By: #### C BCDF ####[address] [address] Chloride molar conc 106 mmol/L Normal 98 - 107 [facility] Comment on above: Performed By: #### C BCDF ####[address] [address] Creatinine mass conc 0.74 mg/dL Normal 0.50 - 1.05 [facility] Comment on above: Performed By: #### C BCDF ####[address] [address] GFR- AM. >60 Normal >60 [facility] Comment on above: Result Comment: CALC ULATIONS OF ESTIMATED GFR ARE PERFORMED USING THE MDRD STUDY EQUATION FOR THE IDMS-TRACEABLE CREATININE METHODS. CLIN CHEM 2007;53:766-72 Performed By: #### C BCDF ####[address] [address] GFR-NON AM. >60 Normal >60 [facility] Comment on above: Performed By: #### C BCDF ####[address] [address] Glucose mass conc 90 mg/dL Normal 74 - 99 [facility] Comment on above: Performed By: #### C BCDF ####[address] [address] HCO3 molar conc (Bld) 26 mmol/L Normal 21 - 32 [facility] Comment on above: Performed By: #### C BCDF ####[address] [place] [address] Potassium molar conc 3.9 mmol/L Normal 3.5 - 5.3 [facility] Comment on above: Performed By: #### C BCDF ####[address] [address] Sodium molar conc 139 mmol/L Normal 136 - 145 [facility] Comment on above: Performed By: #### C BCDF ####[address] [address] Urea nitrogen mass conc 17 mg/dL Normal 6 - 23 [facility] Comment on above: Performed By: #### C BCDF ####[address] [address] CBCon 07-05-2017 Erythrocyte distribution width Auto Ratio (RBC) 14.1 % Normal 11.5 - 14.5 [facility] Comment on above: Performed By: #### C BCDF ####[address] [address] Hematocrit Auto Volume Fraction (Bld) 24.0 % Low 36.0 - 46.0 [facility] Comment on above: Performed By: #### C BCDF ####[address] [address] Hemoglobin mass conc (Bld) 8.0 g/dL Low 12.0 - 16.0 [facility] Comment on above: Performed By: #### C BCDF ####[address] [address] MCHC Auto mass conc (RBC) 33.3 g/dL Normal 32.0 - 36.0 [facility] Comment on above: Performed By: #### C BCDF ####[address] [address] MCV Auto Entitic volume (RBC) 103 fL High 80 - 100 [facility] Comment on above: Performed By: #### C BCDF ####[address] [address] Platelets Auto #/vol (Bld) 149 10*3/uL Low 150 - 450 [facility] Comment on above: Performed By: #### C BCDF ####[facility] [place] [address] RBC Auto #/vol (Bld) 2.33 x10E12/L Low 4.00 - 5.20 [facility] Comment on above: Performed By: #### C BCDF ####[facility] [place] [address] WBC Auto #/vol (Bld) 6.6 10*3/uL Normal 4.4 - 11.3 [facility] Comment on above: Performed By: #### C BCDF ####[address] [place] [address] Daily Progress Note-Cardioemory esteves 07-05-2017 Protein mass conc Service: CardiologySubjective [...] night.Objective Data:Objective Information: T P R BP QuE9Wndoe 36.4 83 16 158/70 96%Date/Time 07/05 8:00 [...] contusions or wounds, noclubbingNeurological: alert and oriented [id number]: Appropriate mood and behaviorSkin: Warm and dryMedication:Medications:CA [...] was relayed directly by me bytelephone to Roberta Paniagua RN on 07/03/2017 at 1:53 am [...] NSTEMI (non-ST elevated myocardial infarction): Entered Date: [id number]-Syw-[id number]:25 UTI (urinary tract infection), bacterial: Entered Date: [...] bowel obstruction: Onset Date: 11-Feb-2012, Entered Date: 28-Rbq-852762:56 Generalized abdominal pain (finding): Entered Date: 11-Feb-2012 [...] ST Elevation Myocardial Infarction (NSTEMI): Entered Date: 23-Utc-305687:29 Coronary angioplasty/stent (PCI): Entered Date: 12-Dec-2009 15:30 Dyspnea: Entered Date: 12-Dec-2009 12:38 Coronary atherosclerosis: Entered Date: 12-Dec-2009 12:38 Left heart catheterization: Entered Date: 12-Dec-2009 12:36 Hypotension: Entered Date: 09-Sep-2009 15:03 Sepsis: Entered Date: 01-Aug-2009 02:21 Venous thromboembolism: Entered Date: 31-Jul-2009 14:57Comorbidities:Comorbidi ty: anemiaAnemia: acute blood loss anemiaAssessment:1. Cecal volvulus s/p right colectomy-pain meds-encourage IS-Lovenox for DVT prophylaxis2. Ffijjjnxmxmw-nlcrgi-moyq metoprolol, lisinopril, and Imdur-cont to monitor closely3. [...] Objective Data, Assessment and Plan,Signature/Cosignature/A ttestationApril Nam (POLICYHOLDER INFORMATION CLERK-DATA STORAGE SPECIALIST) (Signed 05-Jul-2017 12:38) Authored: Service, Subjective Data, Objective Data, Assessment and Plan,Signature/Cosignature/A ttestationLast Updated: 06-Jul-2017 07:33 by Ventura Thacker) [facility] Daily Progress Note-Melly n 07-05-2017 Protein mass conc Service: SurgerySubj ective Data:KATHERINE JUDGE is a 82 year old Female who is Hospital Day # 4 and POD #2 forUS GUIDED PLACEMENT LEFT IJ TLC / ELAP / ANDREIA / RIGHT COLECTOMY / STAPLEDILEOCOLONIC ANASTAMOSIS / BILATERAL TAP BLOCK.Additional Information:Pain is improving. Still passing some flatus. Remains afebrile.Objective Data:Objective Information: T P R BP JlT2Asgnw 36.9 83 25 143/64 96%Date/Time 07/05 4:00 [...] CABGx2, anemia, HTN, SBO s/p ex lap [id number] admitted to the ICU for cecal volvulus, SBO, s/p right colectomy POD #2.cecal volvulus (resolved) s/p right colectomy-await bowel function, no laxatives due to ileus-abdominal XR showed possible ileus-Lasix 10mg IV then d/c soto for abdominal distention-Protonix 40mg IV daily-Percocet 5/325mg PO [id number]-plqxdevw LR drip to 40ml/hr-encourage sips of water on clear liquid diet-transfer patient to general medical floorSignature/Cosignature/A ttestation:Comments/ Additional FindingsTx to floorElectronic Signatures:Manny Arana) (Signed 05-Jul-2017 10:17) Authored: Signature/Cosignature/Attest atformerly [facility], [facility] Co-Signer: Service, Subjective Data, Objective Data, Assessment and PlanAltagracia Trammell (GLENDA) (Signed 05-Jul-2017 07:56) Authored: Service, Subjective Data, Objective Data, Assessment and PlanLast Updated: 05-Jul-2017 10:17 by Manny Arana) Normal [facility] ABDOMEN AP VIEWon 07-04-2017 ABDOMEN [...] Electronically signed by: ALTAGRACIA MELO MD Normal [facility] BASIC METABOLIC PANELon 05-2 Anion gap 3 molar conc 11 mmol/L Normal 10 - 20 [facility] Comment on above: Performed By: #### B MP ####[id number] [place] [address] Calcium mass conc 8.0 mg/dL Low 8.6 - 10.3 [facility] Comment on above: Performed By: #### B MP ####[address] [place] [address] Chloride molar conc 103 mmol/L Normal 98 - 107 [facility] Comment on above: Performed By: #### B MP ####[address] [place] [address] Creatinine mass conc 1.37 mg/dL High 0.50 - 1.05 [facility] Comment on above: Performed By: #### B MP ####[address] [place] [address] GFR- AM. 45 mL/min/1.73m2 Abnormal >60 [facility] Comment on above: Result Comment: CALC ULATIONS OF ESTIMATED GFR ARE PERFORMED USING THE MDRD STUDY EQUATION FOR THE IDMS-TRACEABLE CREATININE METHODS. CLIN CHEM 2007;53:766-72 Performed By: #### B MP ####[address] [place] [address] GFR-NON AM. 37 mL/min/1.73m2 Abnormal >60 [facility] Comment on above: Performed By: #### B MP ####[facility] [place] [address] Glucose mass conc 111 mg/dL High 74 - 99 [facility] Comment on above: Performed By: #### B MP ####[facility] [place] [address] HCO3 molar conc (Bld) 28 mmol/L Normal 21 - 32 [facility] Comment on above: Performed By: #### B MP ####[address] [place] [address] Potassium molar conc 4.3 mmol/L Normal 3.5 - 5.3 [facility] Comment on above: Performed By: #### B MP ####[address] [place] [address] Sodium molar conc 138 mmol/L Normal 136 - 145 [facility] Comment on above: Performed By: #### B MP ####[address] [place] [address] Urea nitrogen mass conc 34 mg/dL High 6 - 23 [facility] Comment on above: Performed By: #### B MP ####[address] [place] [address] CBCon 07-04-2017 Erythrocyte distribution width Auto Ratio (RBC) 13.8 % Normal 11.5 - 14.5 [facility] Comment on above: Performed By: #### C BC ####[address] [place] [address] Hematocrit Auto Volume Fraction (Bld) 27.1 % Low 36.0 - 46.0 [facility] Comment on above: Performed By: #### C BC ####[address] [place] [address] Hemoglobin mass conc (Bld) 9.3 g/dL Low 12.0 - 16.0 [facility] Comment on above: Performed By: #### C BC ####[address] [place] [address] MCHC Auto mass conc (RBC) 34.3 g/dL Normal 32.0 - 36.0 [facility] Comment on above: Performed By: #### C BC ####[address] [place] [address] MCV Auto Entitic volume (RBC) 101 fL High 80 - 100 [facility] Comment on above: Performed By: #### C BC ####[facility] [place] [address] Platelets Auto #/vol (Bld) 169 10*3/uL Normal 150 - 450 [facility] Comment on above: Performed By: #### C BC ####[address] [place] [address] RBC Auto #/vol (Bld) 2.68 x10E12/L Low 4.00 - 5.20 [facility] Comment on above: Performed By: #### C BC ####[address] [place] [address] WBC Auto #/vol (Bld) 6.3 10*3/uL Normal 4.4 - 11.3 [facility] Comment on above: Performed By: #### C BC ####[address] [place] [address] Daily Progress Note-Cardiolo linn 07-04-2017 Protein mass [...] and Output -----Mn/Dy/Year Time Intake Output NetMa2017 6:00 am 0 200 -200May 2017 10:00 pm 678 200 478May 2017 2:00 pm 2001 350 1651The Intake and Output Totals for the last 24 hours are: Intake Output Net 5169 750 1929 T P R BP XsS0Oyfut 36.2 82 22 131/63 94%Date/Time 07/04 12:07/04 [...] contusions or wounds, noclubbingNeurological: alert and oriented v8Hstknkepwrjmc: Appropriate mood and behaviorSkin: Warm and dryMedication:Medications: [...] right colectomy-pain meds-encourage IS-Lovenox for DVT prophylaxis2. Gsjprdsskvlu-rafilv-oyki metoprolol IV until able to take PO-cont [...] Updated: 04-Jul-2017 12:14 by Ventura Thacker) Normal [facility] Daily Progress Note-Melly merino 07-04-2017 [...] last 24 hours are: Intake Output Net 7449 750 1929 T P R BP LlP9Osbek 36.5 86 15 163/71 98%Date/Time 07/04 4:00 [...] Updated: 04-Jul-2017 07:48 by Manny Arana) Normal [facility] LACTATEon 07-04-2017 Lactate molar conc 0.9 mmol/L Normal 0.4 - 2.0 [facility] Comment on above: Result Comment: Hali puncture immediately after or during the administration of Metamizole may lead to falsely low results. Testing should be performed immediately prior to Metamizole dosing. Performed By: #### L ACT ####[address] [address] ARTERIAL BLOOD GASon 018 JACKIE'S TEST[COLLATERAL CIRCULATION] Positive Normal [facility] Comment on above: Result Comment: abg done on vent asv mode 100% mv, 60% fio2. results given to nurse alberto inicu Performed By: #### L IPID ####[address] [address] SITE OF ARTERIAL PUNCTURE RIGHT RADIAL Normal [facility] Comment on above: Performed By: #### L IPID ####[address] [place] [address] BASE EXCESS-BLOOD -0.7 mmol/L Normal -2.0 - 3.0 [facility] Comment on above: Performed By: #### L IPID ####[address] [place] [address] FIO2 60 % Normal [facility] Comment on above: Performed By: #### L IPID ####[address] [address] Oxygen ppres (BldA) 109 mm[Hg] High 85 - 95 [facility] Comment on above: Performed By: #### L IPID ####[facility] [place] [address] PCO2 36 mmHg Low 38 - 42 [facility] Comment on above: Performed By: #### L IPID ####[facility] [place] [address] RBC Auto #/vol (Bld) 23.4 mmol/L Normal 22.0 - 26.0 [facility] Comment on above: Performed By: #### L IPID ####[facility] [place] [address] SO2 98 % Normal 94 - 100 [facility] Comment on above: Performed By: #### L IPID ####[address] [place] [address] pH (Bld) 7.42 [pH] Normal 7.38 - 7.42 [facility] Comment on above: Performed By: #### L IPID ####[address] [address] CBCon 07-03-2017 Erythrocyte distribution width Auto Ratio (RBC) 13.9 % Normal 11.5 - 14.5 [facility] Comment on above: Performed By: #### V TDOH ####[facility] [place] [address] Hematocrit Auto Volume Fraction (Bld) 38.6 % Normal 36.0 - 46.0 [facility] Comment on above: Performed By: #### V TDOH ####[facility] [place] [address] Hemoglobin mass conc (Bld) 12.7 g/dL Normal 12.0 - 16.0 [facility] Comment on above: Performed By: #### V TDOH ####[facility] [place] [address] MCHC Auto mass conc (RBC) 32.9 g/dL Normal 32.0 - 36.0 [facility] Comment on above: Performed By: #### V TDOH ####[facility] [place] [address] MCV Auto Entitic volume (RBC) 102 fL High 80 - 100 [facility] Comment on above: Performed By: #### V TDOH ####[facility] [place] [address] Platelets Auto #/vol (Bld) 214 10*3/uL Normal 150 - 450 [facility] Comment on above: Performed By: #### V TDOH ####[facility] [place] [address] RBC Auto #/vol (Bld) 3.79 x10E12/L Low 4.00 - 5.20 [facility] Comment on above: Performed By: #### V TDOH ####[facility] [place] [address] WBC Auto #/vol (Bld) 6.4 10*3/uL Normal 4.4 - 11.3 [facility] Comment on above: Performed By: #### V TDOH ####[facility] [place] [address] Erythrocyte distribution width Auto Ratio (RBC) 13.8 % Normal 11.5 - 14.5 [facility] Comment on above: Performed By: #### L IPID ####[address] [address] Hematocrit Auto Volume Fraction (Bld) 43.6 % Normal 36.0 - 46.0 [facility] Comment on above: Performed By: #### L IPID ####[address] [place] [address] Hemoglobin mass conc (Bld) 14.2 g/dL Normal 12.0 - 16.0 [facility] Comment on above: Performed By: #### L IPID ####[address] [place] [address] MCHC Auto mass conc (RBC) 32.6 g/dL Normal 32.0 - 36.0 [facility] Comment on above: Performed By: #### L IPID ####[address] [address] MCV Auto Entitic volume (RBC) 103 fL High 80 - 100 [facility] Comment on above: Performed By: #### L IPID ####[facility] [place] [address] Platelets Auto #/vol (Bld) 236 10*3/uL Normal 150 - 450 [facility] Comment on above: Performed By: #### L IPID ####[facility] [place] [address] RBC Auto #/vol (Bld) 4.24 x10E12/L Normal 4.00 - 5.20 [facility] Comment on above: Performed By: #### L IPID ####[facility] [place] [address] WBC Auto #/vol (Bld) 4.7 10*3/uL Normal 4.4 - 11.3 [facility] Comment on above: Performed By: #### L IPID ####[address] [place] [address] CHEST 1 VIEWon 07-03-2017 CHEST 1 VIEW [...] was relayed directly by me bytelephone to Roberta Paniagua RN on 07/03/2017 at 1:53 am withreadback verification.Electronically signed by: BLU ACEVEDO MD Normal [facility] COMPREHENSIVE PANELon 2017 Albumin mass conc 2.7 g/dL Low 3.4 - 5.0 [facility] Comment on above: Performed By: #### V TDOH ####[facility] [place] [address] ALP enzyme act/vol 36 U/L Normal 33 - 136 [facility] Comment on above: Performed By: #### V TDOH ####[facility] [place] [address] ALT enzyme act/vol 19 U/L Normal 7 - 45 [facility] Comment on above: Result Comment: Daniel ents treated with Sulfasalazine may generate falsely decreased results for ALT. Performed By: #### V TDOH ####[facility] [place] [address] Anion gap 3 molar conc 14 mmol/L Normal 10 - 20 [facility] Comment on above: Performed By: #### V TDOH ####[facility] [place] [address] AST enzyme act/vol 21 U/L Normal 9 - 39 [facility] Comment on above: Performed By: #### V TDOH ####[facility] [place] [address] Bilirubin mass conc 1.1 mg/dL Normal 0.0 - 1.2 [facility] Comment on above: Performed By: #### V TDOH ####[facility] [place] [address] Calcium mass conc 8.3 mg/dL Low 8.6 - 10.3 [facility] Comment on above: Performed By: #### V TDOH ####[facility] [place] [address] Chloride molar conc 105 mmol/L Normal 98 - 107 [facility] Comment on above: Performed By: #### V TDOH ####[facility] [place] [address] Creatinine mass conc 1.12 mg/dL High 0.50 - 1.05 [facility] Comment on above: Performed By: #### V TDOH ####[facility] [place] [address] GFR- AM. 57 mL/min/1.73m2 Abnormal >60 [facility] Comment on above: Result Comment: CALC ULATIONS OF ESTIMATED GFR ARE PERFORMED USING THE MDRD STUDY EQUATION FOR THE IDMS-TRACEABLE CREATININE METHODS. CLIN CHEM 2007;53:766-72 Performed By: #### V TDOH ####[facility] [place] [address] GFR-NON AM. 47 mL/min/1.73m2 Abnormal >60 [facility] Comment on above: Performed By: #### V TDOH ####[facility] [place] [address] Glucose mass conc 148 mg/dL High 74 - 99 [facility] Comment on above: Performed By: #### V TDOH ####[facility] [place] [address] HCO3 molar conc (Bld) 22 mmol/L Normal 21 - 32 [facility] Comment on above: Performed By: #### V TDOH ####[facility] [place] [address] Potassium molar conc 3.9 mmol/L Normal 3.5 - 5.3 [facility] Comment on above: Performed By: #### V TDOH ####[facility] [place] [address] Protein mass conc 5.4 g/dL Low 6.4 - 8.2 [facility] Comment on above: Performed By: #### V TDOH ####[facility] [place] [address] Sodium molar conc 137 mmol/L Normal 136 - 145 [facility] Comment on above: Performed By: #### V TDOH ####[facility] [place] [address] Urea nitrogen mass conc 31 mg/dL High 6 - 23 [facility] Comment on above: Performed By: #### V TDOH ####[facility] [place] [address] Albumin mass conc 3.0 g/dL Low 3.4 - 5.0 [facility] Comment on above: Performed By: #### V TDOH ####[facility] [place] [address] ALP enzyme act/vol 41 U/L Normal 33 - 136 [facility] Comment on above: Performed By: #### V TDOH ####[facility] [place] [address] ALT enzyme act/vol 19 U/L Normal 7 - 45 [facility] Comment on above: Result Comment: Daniel ents treated with Sulfasalazine may generate falsely decreased results for ALT. Performed By: #### V TDOH ####[facility] [place] [address] Anion gap 3 molar conc 16 mmol/L Normal 10 - 20 [facility] Comment on above: Performed By: #### V TDOH ####[facility] [place] [address] AST enzyme act/vol 22 U/L Normal 9 - 39 [facility] Comment on above: Performed By: #### V TDOH ####[facility] [place] [address] Bilirubin mass conc 1.0 mg/dL Normal 0.0 - 1.2 [facility] Comment on above: Performed By: #### V TDOH ####[facility] [place] [address] Calcium mass conc 8.8 mg/dL Normal 8.6 - 10.3 [facility] Comment on above: Performed By: #### V TDOH ####[facility] [place] [address] Chloride molar conc 103 mmol/L Normal 98 - 107 [facility] Comment on above: Performed By: #### V TDOH ####[facility] [place] [address] Creatinine mass conc 1.12 mg/dL High 0.50 - 1.05 [facility] Comment on above: Performed By: #### V TDOH ####[facility] [place] [address] GFR- AM. 57 mL/min/1.73m2 Abnormal >60 [facility] Comment on above: Result Comment: CALC ULATIONS OF ESTIMATED GFR ARE PERFORMED USING THE MDRD STUDY EQUATION FOR THE IDMS-TRACEABLE CREATININE METHODS. CLIN CHEM 2007;53:766-72 Performed By: #### V TDOH ####[facility] [place] [address] GFR-NON AM. 47 mL/min/1.73m2 Abnormal >60 [facility] Comment on above: Performed By: #### V TDOH ####[facility] [place] [address] Glucose mass conc 157 mg/dL High 74 - 99 [facility] Comment on above: Performed By: #### V TDOH ####[facility] [place] [address] HCO3 molar conc (Bld) 22 mmol/L Normal 21 - 32 [facility] Center Comment on above: Performed By: #### V TDOH ####[facility] [place] [address] Potassium molar conc 4.1 mmol/L Normal 3.5 - 5.3 [facility] Comment on above: Performed By: #### V TDOH ####[facility] [place] [address] Protein mass conc 6.0 g/dL Low 6.4 - 8.2 [facility] Comment on above: Performed By: #### V TDOH ####[facility] [place] [address] Sodium molar conc 137 mmol/L Normal 136 - 145 [facility] Comment on above: Performed By: #### V TDOH ####[facility] [place] [address] Urea nitrogen mass conc 29 mg/dL High 6 - 23 [facility] Comment on above: Performed By: #### V TDOH ####[facility] [place] [address] Consult-Cardiologyon 018 Consult-Cardiology Service:Service: CardiologyConsult:Consult requested by [...] of mid abdominal pain. The pain started onWedn but progressively got worse yesterday. She states [...] Restoril: ConfusionObjective:Objective Information: T P R BP BwE2Racnd 36.5 87 21 103/55 95%Date/Time 07/03 8:07/03 8:00 07/03 8:00 07/03 8:07/03 8:00Range (36.2C - 36.6C ) (65 - [...] contusions or wounds, noclubbingNeurological: alert and oriented j2Yqhutjorrutvs: Appropriate mood and behaviorSkin: Warm and dryMedications:Medications:C [...] Urine MARINA Reference Range: STRAW,YELLOWAppearance, Urine HAZYSpecific [place], Urine 1.026pH, Urine 5.0Protein, Urine 30(1+) AGlucose, [...] was relayed directly by me bytelephone to Roberta Paniagua RN on 07/03/2017 at 1:53 am [...] Elevated glucose-Could be stress response-check hgb A1C6. Vrbnlc-Vfdugm-Jnykwnh closely post op7. Hyperlipidemia-Lipid panel WNL in February 2017-Cont statin when able to eatCritical care time 45 minutesElectronic Signatures:Ventura Thacker) (Signed 05-Jul-2017 11:39) Authored: Signature/Cosignature/Attest ation Co-Signer: Service, History of Present Illness, Past Medical/Surgical History,Review Family/Social History and ROS, Allergies, Objective,Assessment/Recomme ndations, Signature/Cosignature/Attest fcoionApril Nam (POLICYHOLDER INFORMATION CLERK-[facility]) (Signed 03-Jul-2017 09:53) Authored: Service, History of Present Illness, Past Medical/Surgical History,Review Family/Social History and ROS, Allergies, Objective,Assessment/Recomme ndations, Signature/Cosignature/Attest ationLast Updated: 05-Jul-2017 11:39 by Ventura Thacker) [facility] Consult-Surgeryon 07-03-2017 Consult-Surgery This report has been cancelled. [facility] Daily Progress Note - Critic al Care-SICUon 07-03-2017 Protein mass conc Service:Critical Car e Service:? Service SICUSubjective Data:ID Statement:82-year-old female with PMH of CAD, CHF, CABGx2, anemia, HTN, SBO s/p ex lap [id number] admitted to the ICU for cecal volvulus, SBO, s/p right colectomy POD #1.Patient presented to the [place] ED 07/02/17 complaining of severe periumbilicalabdominal pain. [...] Data:? Objective Information T P R BP BrZ9Pshke 36.1 81 18 135/58 94%Date/Time 07/03 12:00 [...] last 24 hours are: Intake Output Net [phone] Drain and tube details (included in I&O [...] changesCardiovascular:Diagno sis:No acute issues, h/o CAD CHF, ZDGDq7Hufkfdxzcb: HR normal. NSR on ECGPlan: -cardiology following-continue [...] Bed @ 30 Degrees: yesDate Soto Inserted: 35-[id number]-3918KIDB:Urinary Catheter Removed Post-Op Day 2: noReason Patient [...] Updated: 03-Jul-2017 21:22 by Manny Arana) [facility] Discharge Planning Noteon Discharge Planning Note Discharge Needs Assessment:? Discharge Planning Assessment Pyut28-Its-4848? Discharge Planning Assessment Completed bySom Chaudhari RN [...] 07/06/17 1056Tried to meet with patient today, FBI INVESTIGATOR feeding patient and she stated patientconfused today, Unable to talk with patient due to confusion, Will continue tofollow. Som Chaudhari RN (Industrial Laborer) 07/07/17 1545Met with patient about discharge plans, lives with spouse in a one story homewith 2 steps to enter, Therapy [facility], [facility] [id number] completed.Som Chaudhari RN (Industrial Laborer) 07/08/17 1540- Discussed plan of care in interdisciplinary rounds. Patient isinterested in staying here for swing bed is able. [facility] Referral sent to team to review and willfollow. Javier Muller RN Electronic Signatures:Som Chaudhari (CLIN COOR) (Signed 07-Jul-2017 15:47)Authored: Discharge Planning Wanda Cheung (CLIN COOR) (Signed 08-Jul-2017 15:41)Authored: Discharge Planning Note Last Updated: 08-Jul-2017 15:41 by Wanda Muller (CLIN COOR) References:1. Data Referenced From Admission Risk Screen - Adult 07/02/2017 08:21 PM [facility] FLUID CULTURE/SM.,BACTERIALo n 07-03-2017 FLUID CULTURE/SM.,BACTERIAL PATIENT: KATHERINE JUDGE LOCATION: [address]#: [id number] : [birth year] AGE: SEX: F ORDERED BY: DEBRA ARANA: FLUID COLLECTED: 07/03/17 00:58ANTIBIOTICS AT ESDRAS.: RECEIVED : 07/03/17 08:21SITE: peritineum R E S U L T S GRAM STAIN FINAL 07/03/17 09:41 NO GRANULOCYTES OR ORGANISMS SEEN. FLUID CULTURE/SM.,BACTERIAL FINAL 07/06/17 09:20 NO GROWTH AEROBICALLY OR ANAEROBICALLY. Normal [facility] Comment on above: Performed By: #### U A ####[facility] [place] [address] LACTATEon 07-03-2017 Lactate molar conc Canceled Normal [facility] Comment on above: Order Comment: TEST LACTATE WAS CANCELLED, 07/03/2017 09:41 ?Cancel Reason: Alternativetreatment needed. Result Comment: Hali puncture immediately after or during the administration of Metamizole may lead to falsely low results. Testing should be performed immediately prior to Metamizole dosing. Performed By: #### V TDOH ####[facility] [place] [address] Lactate molar conc 2.6 mmol/L High 0.4 - 2.0 [facility] Comment on above: Result Comment: Hali puncture immediately after or during the administration of Metamizole may lead to falsely low results. Testing should be performed immediately prior to Metamizole dosing. Performed By: #### V TDOH ####[facility] [place] [address] Lactate molar conc 3.0 mmol/L High 0.4 - 2.0 [facility] Comment on above: Result Comment: Hali puncture immediately after or during the administration of Metamizole may lead to falsely low results. Testing should be performed immediately prior to Metamizole dosing. Performed By: #### V TDOH ####[facility] [place] [address] Lactate molar conc 2.9 mmol/L High 0.4 - 2.0 [facility] Comment on above: Result Comment: Hali puncture immediately after or during the administration of Metamizole may lead to falsely low results. Testing should be performed immediately prior to Metamizole dosing. Performed By: #### V TDOH ####[facility] [place] [address] MAGNESIUMon 07-03-2017 Magnesium mass conc 1.73 mg/dL Normal 1.60 - 2.40 [facility] Comment on above: Performed By: #### V TDOH ####[facility] [place] [address] Nutrition Therapy-Assessment on 07-03-2017 Nutrition Therapy-Assessment Assessment Subjective/Objective:Note Type: AssessmentNote Authored by: Registered Dietitian NutritionistPager Number: [phone] Note:The patient is a 82 year old [...] bowel obstruction:Objective Information: T P R BP LdA5Prpnv 36.1 83 13 92/53 93%Date/Time 07/03 12:00 [...] Trending ViewResult 03-Jul-2017 08:23:00 03-Jul-2017 05:20:00 03-Jul-2017 02:05:3434-Ycx-0255 17:00:00Lactate, Level 2.6 H 3.0 H 2.9 [...] Urine MARINA Reference Range: STRAW,YELLOWAppearance, Urine HAZYSpecific [place], Urine 1.026pH, Urine 5.0Protein, Urine 30(1+) AGlucose, [...] mL Run at: 60 mL/hr IntraVenous , 96-Agp-7499Vfldypvia Orders: NPO, Routine Except Sips of Water Special Instuctions: may have ice chips and popsicles also, 30-Dmg-9866Hhjw/Nutrition Related History:Change in Oral Intake/Appetite: decrease -Pt [...] less than 5 days NPO/clear liquids, Blood Tjksskz16-348 mg/dl, lab values within normal limits, promote [...] 03-Jul-2017 17:04 by Silvia Tyler ([place], DEEPA) [facility] OPERATIVE REPORTon 8 OPERATIVE REPORT [facility] [place], [place] [address]Irqgxlj Name: KATHERINE JUDGE. NMRN: [id number]: 1935Encounter Number: [id number] of Service: 07/03/2017Patient Location: [facility]85Patient Type: ISurgeon: Manny Arana M.D.Report Type: Operative ReportsPREOPERATIVE DIAGNOSIS:Venofibrosis, cecal volvulus, small-bowel obstruction.POSTOPERATIVE DIAGNOSIS:Venofibrosis, cecal volvulus, small-bowel obstruction.OPERATION/PROCED URE:1. Ultrasound-guided placement of left internal jugular vein triple-lumen catheter.2. Exploratory laparotomy.3. Lysis of adhesions.4. Right colectomy.5. Ileocolonic staple anastomosis.6. Bilateral transversus abdominis plane block.SURGEON:Manny MachadoT(S):Mary SantanaANESTHESIA:General.INC ISION:Midline.ESTIMATED BLOOD LOSS:50 cc.FLUIDS:1500 mL.DRAINS:None.SPECIMENS:Non viable [...] discussion with thepatient and discussion with the air pollution engineer, it was felt that she would be [...] present, and the small bowel itselfwas viable.A xysg-jw-ywrn ileocolonic stapled functional end-to-end handsewn 2-layeredanastomosis was [...] was doubly clamped, divided, and ligated between Roberta clamps andties, and I removed the specimen to the back table and opened this, whichcontained a large amount of stool.Attention was turned to the small bowel. This had a small hematoma, but itappeared to be viable. A crhe-rk-rafa stapled anastomosis was performed afterensuring that I [...] this. I then reanastomosed the bowelperforming a hvoe-bw-gumu stapled anastomosis after opening this at thecorners. I had complete control of the bowel clamps, I performed jgdvi-cc-pecb stapled anastomosis. I then performed another vkflpzmslrufu-wb-aeq handsewn 2-layered anastomosis, which on completion had [...] M.D. ESTTT: 07/03/2017 06:25 AM ESTDICTATION NUMBER: [id number] JOB NUMBER: [id number]:Benjy Garnett M.D., [id number] signed by Dr Manny Arana 07/04/2017 09:43:47 AM [facility] PHOSPHORUSon 07-03-2017 Phosphate mass conc 3.7 mg/dL Normal 2.5 - 4.9 [facility] Comment on above: Result Comment: The performance characteristics of phosphorus testing in heparinized plasma have been validated by the individual laboratory site where testing is performed. Testing on heparinized plasma is not approved by the FDA; however, such approval is not necessary. Performed By: #### V TDOH ####[facility] [place] [address] Admission Risk Screen - Adul ton 07-02-2017 [...] Directive type Living Will, Durable Power of Pharmacoepidemiologist forHealthcare? Living Will Availability Living Will not available now? Living Will Requested 02-Jul-2017? Durable Power of Pharmacoepidemiologist Availability DPOA not available now? Durable Power of Pharmacoepidemiologist Requested 02-Jul-2017? Durable Power of Pharmacoepidemiologist contact (name and number) Ganga Judge (son)[phone]? Advance Directive Mental Health not applicableFalls Screen:Type [...] instruction? Cultural Considerations none? Developmental Considerations none? Baptist Considerations noneLearning Assessment (Other Learner):? Other learner [...] lowerSpiritual Screen:? Are there any cultural, spiritual, jain practices/values/needs that areimportant for us to know? noCAGE:Is this an injured patient at a Trauma Center ([facility] [place]): noVaccinations:Vaccination - Influenza Vaccination Screen:? Is it [...] 02-Jul-2017 20:35 by Emily Henderson (SUPV) [facility] CBC AND DIFFERENTIALon 07-02 % AUTOMATED IMMATURE GRAN 0.4 % Normal 0.0 - 0.9 [facility] Comment on above: Result Comment: Perc ent differential counts (%) should be interpreted in the context of the absolute cell counts (cells/L). Performed By: #### C BCDF ####[address] [address] % NEUTROPHIL 83.4 % Normal 40.0 - 80.0 [facility] Comment on above: Performed By: #### C BCDF ####[address] [place] [address] Basophils/100 WBC Auto (Bld) 0.03 x10E9/L Normal 0.00 - 0.10 [facility] Comment on above: Performed By: #### C BCDF ####[address] [place] [address] Basophils/100 WBC Auto (Bld) 0.2 % Normal 0.0 - 2.0 [facility] Comment on above: Performed By: #### C BCDF ####[address] [address] Eosinophils Auto #/vol (Bld) 0.01 10*3/uL Normal 0.00 - 0.40 [facility] Comment on above: Performed By: #### C BCDF ####[address] [place] [address] Eosinophils/100 WBC Auto (Bld) 0.1 % Normal 0.0 - 6.0 [facility] Comment on above: Performed By: #### C BCDF ####[address] [address] Erythrocyte distribution width Auto Ratio (RBC) 13.6 % Normal 11.5 - 14.5 [facility] Comment on above: Performed By: #### C BCDF ####[address] [address] Hematocrit Auto Volume Fraction (Bld) 44.8 % Normal 36.0 - 46.0 [facility] Comment on above: Performed By: #### C BCDF ####[address] [address] Hemoglobin mass conc (Bld) 15.0 g/dL Normal 12.0 - 16.0 [facility] Comment on above: Performed By: #### C BCDF ####[address] [address] Lymphocytes Auto #/vol (Bld) 1.63 10*3/uL Normal 0.80 - 3.00 [facility] Comment on above: Performed By: #### C BCDF ####[address] [address] Lymphocytes/100 WBC Auto (Bld) 12.8 % Low 13.0 - 44.0 [facility] Comment on above: Performed By: #### C BCDF ####[address] [address] MCHC Auto mass conc (RBC) 33.5 g/dL Normal 32.0 - 36.0 [facility] Comment on above: Performed By: #### C BCDF ####[address] [address] MCV Auto Entitic volume (RBC) 100 fL Normal 80 - 100 [facility] Comment on above: Performed By: #### C BCDF ####[address] [address] Monocytes Auto #/vol (Bld) 0.40 10*3/uL Normal 0.05 - 0.80 [facility] Comment on above: Performed By: #### C BCDF ####[address] [address] Monocytes/100 WBC Auto (Bld) 3.1 % Normal 2.0 - 10.0 [facility] Comment on above: Performed By: #### C BCDF ####[address] [address] Neutrophils Auto #/vol (Bld) 10.64 10*3/uL High 1.60 - 5.50 [facility] Comment on above: Performed By: #### C BCDF ####[address] [address] Platelets Auto #/vol (Bld) 260 10*3/uL Normal 150 - 450 [facility] Comment on above: Performed By: #### C BCDF ####[address] [address] RBC Auto #/vol (Bld) 4.49 x10E12/L Normal 4.00 - 5.20 [facility] Comment on above: Performed By: #### C BCDF ####[address] [address] WBC Auto #/vol (Bld) 12.8 10*3/uL High 4.4 - 11.3 [facility] Comment on above: Performed By: #### C BCDF ####[address] [address] COMPREHENSIVE PANELon 2017 Albumin mass conc 4.7 g/dL Normal 3.4 - 5.0 [facility] Comment on above: Performed By: #### C MP ####[address] [address] ALP enzyme act/vol 62 U/L Normal 33 - 136 [facility] Comment on above: Performed By: #### C MP ####[address] [place] [address] ALT enzyme act/vol 33 U/L Normal 7 - 45 [facility] Comment on above: Result Comment: Daniel ents treated with Sulfasalazine may generate falsely decreased results for ALT. Performed By: #### C MP ####[address] [place] [address] Anion gap 3 molar conc 13 mmol/L Normal 10 - 20 [facility] Comment on above: Performed By: #### C MP ####[address] [address] AST enzyme act/vol 34 U/L Normal 9 - 39 [facility] Comment on above: Performed By: #### C MP ####[address] [address] Bilirubin mass conc 1.0 mg/dL Normal 0.0 - 1.2 [facility] Comment on above: Performed By: #### C MP ####[address] [address] Calcium mass conc 10.9 mg/dL High 8.6 - 10.3 [facility] Comment on above: Performed By: #### C MP ####[address] [address] Chloride molar conc 98 mmol/L Normal 98 - 107 [facility] Comment on above: Performed By: #### C MP ####[address] [address] Creatinine mass conc 1.25 mg/dL High 0.50 - 1.05 [facility] Comment on above: Performed By: #### C MP ####[address] [place] [address] GFR- AM. 50 mL/min/1.73m2 Abnormal >60 [facility] Comment on above: Result Comment: CALC ULATIONS OF ESTIMATED GFR ARE PERFORMED USING THE MDRD STUDY EQUATION FOR THE IDMS-TRACEABLE CREATININE METHODS. CLIN CHEM 2007;53:766-72 Performed By: #### C MP ####[address] [address] GFR-NON AM. 41 mL/min/1.73m2 Abnormal >60 [facility] Comment on above: Performed By: #### C MP ####[facility] [place] [address] Glucose mass conc 127 mg/dL High 74 - 99 [facility] Comment on above: Performed By: #### C MP ####[address] [place] [address] HCO3 molar conc (Bld) 32 mmol/L Normal 21 - 32 [facility] Comment on above: Performed By: #### C MP ####[address] [place] [address] Potassium molar conc 3.8 mmol/L Normal 3.5 - 5.3 [facility] Comment on above: Performed By: #### C MP ####[address] [place] [address] Protein mass conc 9.3 g/dL High 6.4 - 8.2 [facility] Comment on above: Performed By: #### C MP ####[address] [place] [address] Sodium molar conc 139 mmol/L Normal 136 - 145 [facility] Comment on above: Performed By: #### C MP ####[address] [place] [address] Urea nitrogen mass conc 29 mg/dL High 6 - 23 [facility] Comment on above: Performed By: #### C MP ####[address] [address] [address] ABDOMEN AND PELVIS WO CON TRASTon [...] y signed by: BLU ACEVEDO MD Normal [facility] History and Physicalon 07-02 History [...] Rash, UlcerObjective:Objective Information: T P R BP EyJ8Occmz 36.6 90 16 111/58 100%Date/Time 07/02 15:10 [...] within 96 hours after admission to the [facility].Electronic Signatures:Manny Arana) (Signed 02-Jul-2017 20:34) Authored: History of Present Illness, Comorbidities, Past Medical/SurgicalHistory, Social History, Allergies, Review of Systems, Objective, Assessmentand Plan, Signatures/Attestation/Certi ficationLast Updated: 02-Jul-2017 20:34 by Manny Arana) Normal [facility] LACTATEon 07-02-2017 Lactate molar conc 1.5 mmol/L Normal 0.4 - 2.0 [facility] Comment on above: Result Comment: Hali puncture immediately after or during the administration of Metamizole may lead to falsely low results. Testing should be performed immediately prior to Metamizole dosing. Performed By: #### L ACT ####[facility] [place] [address] LIPASEon 07-02-2017 Lipase enzyme act/vol 455 U/L High 9 - 82 [facility] Comment on above: Result Comment: Hali puncture immediately after or during the administration of Metamizole may lead to falsely low results. Testing should be performed immediately prior to Metamizole dosing. Performed By: #### L IPAS ####[address] [place] [address] Patient Profile - Adult v2on 07-02-2017 Protein mass conc Profile:Initial Info :How to be Addressed NaomiSpoken Language Preferred Ecuadorean (1)Source of Information patientAre you currently using the Personal Electronic Health Record or [facility] noAre you interested in learning more about [facility] for the management of yourhealth yes, information providedEmail address [email or web address] Reason for Admission Intestines are twisted [...] Drug, Confusion, Active? Restoril: Drug, Confusion, ActiveElectronic Signatures:Roberta Paniagua (CINTHYA) (Signed 03-Jul-2017 02:13) Authored: Emily Ken (SUPV) (Signed 02-Jul-2017 20:57) Authored: Mayela, Additional InformationLast Updated: 03-Jul-2017 02:13 by Roberta Paniagua (CINTHYA)References:1. Data Referenced From Patient Profile - Adult v2 12/26/2016 06:36 PM [facility] Preop Checkliston 07-02-2017 Preop Checklist [...] 02-Jul-2017 21:30 by Shawnee Rodríguez (RN) [facility] Provider Note - EDon 018 [...] Medical History, Active? Family spokesperson: Other, CARLOS [phone] BROTHERPAUL VELOZ [phone], Active? Narcotic Use: Other, Active? Clostridium difficile toxin (C-Diff): Infection Control, came with ([facility]), Active, 27-Aug-2012? Methicillin-Resistant Staph Aureus (MRSA): Infection Control, sputum,Active, Mar 2012? .Pneumonia- Pneumococcal polysaccharide vaccine-adult: Immunizations,Active? .Influenza- Influenza Virus: Immunizations, Active, 22-Kxz-9193Snnamaa, Intolerance, Adverse Event: Allergies:? Lincocin: Drug, Rash, [...] 60 mg oral tablet: Last Modified Date/Time: 65-Mih-945214:42? Os-Ramiro Calcium+D3 oral tablet: Last Modified Date/Time: [...] Triage - ED 07/02/2017 3:10 PM [facility] TYPE + SCREENon 07-02-2017 ABO TYPE O [facility] Comment on above: Performed By: #### L IPID ####[facility] [place] [address] RH TYPE Positive [facility] Comment on above: Performed By: #### L IPID ####[facility] [place] [address] Triage - EDon 07-02-2017 Triage - ED Chart Review:CHIEF COMPLAINTALICE Wilber JUDGE is a Female patient with a chief complaint of abdominal pain.Onset of the Complaint: 31-Lbf-7386Pydlkh Date/Time: 02-Jul-2017 14:57Vital Signs:Temperature: 98.0F ( 36.6C) [...] 15:11 by Obdulia Perea (RN PRN) [facility] UA MICROSCOPICon 07-02-2017 BACTERIA 1+ /HPF Abnormal [facility] Comment on above: Performed By: #### U AMIC ####[facility] [place] [address] HYALINE CAST 4+ /LPF Abnormal [facility] Comment on above: Performed By: #### U AMIC ####[address] [place] [address] MUCUS 1+ /LPF [facility] Comment on above: Performed By: #### U AMIC ####[address] [place] [address] RBC 1 /HPF Abnormal 0-5 [facility] Comment on above: Performed By: #### U AMIC ####[address] [place] [address] SQUAMOUS EPITH. CELLS 2 /HPF Normal [facility] Comment on above: Performed By: #### U AMIC ####[address] [place] [address] WBC 3 /HPF Abnormal 0-5 [facility] Comment on above: Performed By: #### U AMIC ####[address] [place] [address] URINALYSISon 07-02-2017 APPEARANCE HAZY Normal CLEAR [facility] Comment on above: Performed By: #### U A ####[address] [address] BILIRUBIN Negative Normal NEGATIVE [facility] Comment on above: Performed By: #### U A ####[address] [place] [address] BLOOD Negative Normal NEGATIVE [facility] Comment on above: Performed By: #### U A ####[address] [place] [address] COLOR MARINA Normal STRAW,YELL OW [facility] Comment on above: Performed By: #### U A ####[address] [address] GLUCOSE Negative Normal NEGATIVE [facility] Comment on above: Performed By: #### U A ####[address] [address] KETONES Negative Normal NEGATIVE [facility] Comment on above: Performed By: #### U A ####[address] [place] [address] LEUKOCYTE ESTERASE TRACE Abnormal NEGATIVE [facility] Comment on above: Performed By: #### U A ####[address] [address] NITRITE Negative Normal NEGATIVE [facility] Comment on above: Performed By: #### U A ####[address] [address] pH 5.0 Normal 5.0 - 8.0 [facility] Comment on above: Performed By: #### U A ####[address] [address] Protein mass conc 30(1+) Abnormal NEGATIVE [facility] Comment on above: Performed By: #### U A ####[address] [address] SPECIFIC GRAVITY 1.026 Normal 1.005 - 1.035 [facility] Comment on above: Performed By: #### U A ####[address] [address] UROBILINOGEN <2.0 Normal 0.0 - 1.9 [facility] Comment on above: Performed By: #### U A ####[address] [address] LIPID PANEL (CORONARY RISK 2 )on 03-02-2017 Cholesterol in HDL mass conc 41.0 mg/dL Normal [facility] Comment on above: Result Comment: . AG E VERY LOW LOW NORMAL HIGH 0-19 Y < 35 < 40 40-45 ---- 20-24 Y ---- < 40 >45 ---- >24 Y ---- < 40 40-60 >60. Performed By: #### L IPID ####[address] [address] Cholesterol in LDL mass conc 69 mg/dL Normal 0 - 99 [facility] Comment on above: Result Comment: . NE EMIR ERVIN AGE DESIRABLE OPTIMAL HIGH HIGH VERY HIGH 0-19 Y 0 - 109 --- 110-129 >/= 130 ---- 20-24 Y 0 - 119 --- 120-159 >/= 160 ---- >24 Y 0 - 99 100-129 130-159 160-189 >/=190. Performed By: #### L IPID ####[facility] [place] [address] Cholesterol in VLDL mass conc 24 mg/dL Normal 0 - 40 [facility] Comment on above: Performed By: #### L IPID ####[facility] [place] [address] Cholesterol mass conc 134 mg/dL Normal 0 - 199 [facility] Comment on above: Result Comment: [...] Metamizole dosing. Performed By: #### L IPID ####[facility] [place] [address] Cholesterol.total/Cho lesterol in HDL mass ratio 3.3 {ratio} Normal [facility] Comment on above: Result Comment: REF VALUESDESIRABLE < 3.4HIGH RISK > 5.0 Performed By: #### L IPID ####[facility] [place] [address] Triglyceride mass conc 122 mg/dL Normal 0 - 149 [facility] Comment on above: Result Comment: [...] Metamizole dosing. Performed By: #### L IPID ####[facility] [place] [address] VITAMIN D, 25-HYDROXYon 02-10 VITAMIN D, 25-HYDROXY 34 ng/mL Normal [facility] Comment on above: Result Comment: .DEF ICIENCY: < 20 NG/MLINSUFFICIENCY: 20-29 NG/MLOPTIMUM LEVEL: 30-80 NG/MLPOSSIBLE TOXICITY: > 80 NG/MLTHIS ASSAY ACCURATELY QUANTIFIES THE SUM OFVITAMIN D3, 25-HYDROXY AND VIT D2,25-HYDROXY. Performed By: #### V TDOH ####[facility] [place] [address] URINE CULTURE,BACTERIALon URINE CULTURE,BACTERIAL PATIENT: KATHERINE JUDGE LOCATION: [facility]#: [id number] : [birth year] AGE: SEX: F ORDERED BY: GOYO GARNETT: URINE COLLECTED: 01/21/17 22:12ANTIBIOTICS AT [facility]SD[facility]AS.: RECEIVED : 01/21/17 22:12SITE: R E S U L T S URINE CULTURE,BACTERIAL FINAL 01/22/17 14:32 NO SIGNIFICANT GROWTH. Normal [facility] Comment on above: Performed By: #### U RINC ####[facility] [place] [address] Vital Signs Date Time Vital Sign Value Performing Clinician Facility 08-05-2024 14:58-0400 Body temperature 97.5 [degF] Dr. Kam Ocampo Sr. DO Work Phone: [facility] 08-05-2024 14:58-0400 Diastolic blood pressure 94 mm[Hg] Dr. Kam Ocampo Sr. DO Work Phone: [facility] 08-05-2024 14:58-0400 Heart rate 81 /min Dr. Kam Oacmpo Sr. DO Work Phone: [facility] 08-05-2024 14:58-0400 Inhaled oxygen flow rate 2 L/min Dr. Kam Ocampo Sr. DO Work Phone: [facility] 08-05-2024 14:58-0400 Respiratory rate 16 /min Dr. Kam Ocampo Sr. DO Work Phone: [facility] 08-05-2024 14:58-0400 SaO2% (BldA) [Mass fraction] 97 % Dr. Kam Ocampo Sr. DO Work Phone: [facility] 08-05-2024 14:58-0400 Systolic blood pressure 152 mm[Hg] Dr. Kam Ocampo Sr. DO Work Phone: [facility] 08-04-2024 15:25-0400 Body height 152.[address] Kam Ocampo Sr. DO Work Phone: [facility] 08-04-2024 15:25-0400 Body mass index (BMI) [Ratio] 22.2 kg/m2 Dr. Kam Ocampo Sr. DO Work Phone: [facility] 08-04-2024 15:25-0400 Body weight 51.[address] Kam Ocampo Sr. DO Work Phone: [facility] 08-02-2024 17:09-0400 Body temperature 98.7 [degF] Dr. Kam Ocampo Sr. DO Work Phone: [facility] 08-02-2024 17:09-0400 Diastolic blood pressure 49 mm[Hg] Dr. Kam Ocampo Sr. DO Work Phone: [facility] 08-02-2024 17:09-0400 Heart rate 84 /min Dr. Kam Ocampo Sr. DO Work Phone: [facility] 08-02-2024 17:09-0400 Respiratory rate 22 /min Dr. Kam Ocampo Sr. DO Work Phone: [facility] 08-02-2024 17:09-0400 SaO2% (BldA) [Mass fraction] 100 % Dr. Kam Ocampo Sr. DO Work Phone: [facility] 08-02-2024 17:09-0400 Systolic blood pressure 135 mm[Hg] Dr. Kam Ocampo Sr. DO Work Phone: [facility] 08-02-2024 17:00-0400 Inhaled oxygen flow rate 2 L/min Dr. Kam Ocampo Sr. DO Work Phone: [facility] 08-02-2024 13:04-0400 Body height 152.[address] Kam Ocampo Sr. DO Work Phone: [facility] 08-02-2024 13:04-0400 Body mass index (BMI) [Ratio] 22.2 kg/m2 Dr. Kam Ocampo Sr. DO Work Phone: [facility] 08-02-2024 13:04-0400 Body weight 51.[address] Kam Ocampo Sr. DO Work Phone: [facility] 07-28-2024 15:31-0400 Body temperature 98.4 [degF] Dr. Jacobo Moya DO Work Phone: [facility] 07-28-2024 15:31-0400 Diastolic blood pressure 47 mm[Hg] Dr. Jacobo Moya DO Work Phone: [facility] 07-28-2024 15:31-0400 Heart rate 98 /min Dr. Jacobo Moya DO Work Phone: [facility] 07-28-2024 15:31-0400 Inhaled oxygen flow rate 2 L/min Dr. Jacobo Moya DO Work Phone: 6(124)560-752703 [place] [address] 07-28-2024 15:31-0400 Respiratory rate 18 /min Dr. Jacobo Moya DO Work Phone: 8(813)509-801761 [place] [address] 07-28-2024 15:31-0400 SaO2% (BldA) [Mass fraction] 98 % Dr. Jacobo Moya DO Work Phone: 9(954)744-233403 [place] [address] 07-28-2024 15:31-0400 Systolic blood pressure 124 mm[Hg] Dr. Jacobo Moya DO Work Phone: 1(817)253-957461 [place] [address] 07-26-2024 13:46-0400 Body height 152.[address] Jacobo Moya DO Work Phone: 2(733)039-286861 [place] [address] 07-26-2024 13:46-0400 Body mass index (BMI) [Ratio] 20.9 kg/m2 Dr. Jacobo Moya DO Work Phone: 0(462)509-503061 [place] [address] 07-26-2024 13:46-0400 Body weight 48.[address] Jacobo Moya DO Work Phone: 9(384)853-374761 [place] [address] 07-25-2024 18:05-0400 Body height 152.[address] Jacobo Moya DO Work Phone: 2(855)999-526261 [place] [address] 07-25-2024 18:05-0400 Body mass index (BMI) [Ratio] 21.1 kg/m2 Dr. Jacobo Moya DO Work Phone: 8(613)403-609503 [place] [address] 07-25-2024 18:05-0400 Body weight 48.[address] Jacobo Moya DO Work Phone: 2(339)548-167603 [place] [address] 07-25-2024 18:03-0400 Body temperature 97.8 [degF] Dr. Jacobo Moya DO Work Phone: 5(658)006-685003 [place] [address] 07-25-2024 18:03-0400 Diastolic blood pressure 64 mm[Hg] Dr. Jacobo Moya DO Work Phone: 8(785)897-988003 [place] [address] 07-25-2024 18:03-0400 Heart rate 63 /min Dr. Jacobo Moya DO Work Phone: [facility] 07-25-2024 18:03-0400 Respiratory rate 16 /min Dr. Jacobo Moya DO Work Phone: [facility] 07-25-2024 18:03-0400 SaO2% (BldA) [Mass fraction] 99 % Dr. Jacobo Moya DO Work Phone: [facility] 07-25-2024 18:03-0400 Systolic blood pressure 132 mm[Hg] Dr. Jacobo Moya DO Work Phone: [facility] 07-25-2024 16:27-0400 Inhaled oxygen flow rate 2 L/min Dr. Jacobo Moya DO Work Phone: [facility] 11-06-2022 21:33-0400 Heart rate 79 /min Dr. Amalia Donahue Work Phone: [facility] 11-06-2022 21:33-0400 Inhaled oxygen flow rate 3 L/min Dr. Amalia Donahue Work Phone: [facility] 11-06-2022 21:33-0400 SaO2% (BldA) [Mass fraction] 97 % Dr. Amalia Donahue Work Phone: [facility] 11-06-2022 20:00-0400 Diastolic blood pressure 85 mm[Hg] Dr. Amalia Donahue Work Phone: [facility] 11-06-2022 20:00-0400 Respiratory rate 27 /min Dr. Amalia Donahue Work Phone: [facility] 11-06-2022 20:00-0400 Systolic blood pressure 172 mm[Hg] Dr. Amalia Donahue Work Phone: [facility] 11-06-2022 19:00-0400 Body temperature 98.3 [degF] Dr. Amalia Donahue Work Phone: [facility] 11-06-2022 16:27-0400 Body height 152.[address] Amalia Donahue Work Phone: [facility] 11-06-2022 16:27-0400 Body mass index (BMI) [Ratio] 21.4 kg/m2 Dr. Amalia Donahue Work Phone: [facility] 11-06-2022 16:27-0400 Body weight 49.[address] Amalia Donahue Work Phone: [facility] 11-02-2022 12:18-0400 Body mass index (BMI) [Ratio] 21.1 kg/m2 Dr. Amalia Donahue Work Phone: [facility] 11-02-2022 12:00-0400 Body temperature 98 [degF] Dr. Amalia Donahue Work Phone: [facility] 11-02-2022 12:00-0400 Diastolic blood pressure 72 mm[Hg] Dr. Amalia Donahue Work Phone: 3(143)928-165842 [place] [address] 11-02-2022 12:00-0400 Heart rate 74 /min Dr. Amalia Donahue Work Phone: [facility] 11-02-2022 12:00-0400 Inhaled oxygen flow rate 1 L/min Dr. Amalia Donahue Work Phone: [facility] 11-02-2022 12:00-0400 Respiratory rate 18 /min Dr. Amalia Donahue Work Phone: [facility] 11-02-2022 12:00-0400 SaO2% (BldA) [Mass fraction] 95 % Dr. Amalia Donahue Work Phone: [facility] 11-02-2022 12:00-0400 Systolic blood pressure 133 mm[Hg] Dr. Amalia Donahue Work Phone: [facility] 11-02-2022 06:00-0400 Body weight 48.[address] Amalia Donahue Work Phone: [facility] 10-31-2022 09:20-0400 Body height 152.[address] Amalia Donahue Work Phone: [facility] 10-30-2022 22:21-0400 Body height 154.94 cm [facility] 10-30-2022 22:21-0400 Body mass index (BMI) [Ratio] 18.8 kg/m2 [facility] 10-30-2022 22:21-0400 Body temperature 98.3 [degF] [facility] 10-30-2022 22:21-0400 Body weight 45.35 kg [facility] 10-30-2022 22:06-0400 Diastolic blood pressure 67 mm[Hg] [facility] 10-30-2022 22:06-0400 Heart rate 75 /min [facility] 10-30-2022 22:06-0400 Respiratory rate 20 /min [facility] 10-30-2022 22:06-0400 SaO2% (BldA) [Mass fraction] 97 % [facility] 10-30-2022 22:06-0400 Systolic blood pressure 168 mm[Hg] [facility] 10-30-2022 21:29-0400 Inhaled oxygen flow rate 4 L/min [facility] 10-27-2022 10:08-0400 Body height 153.67 cm Christ Gardiner Work Phone: PR-Ykitrlcmfl-[address] [place] Work Phone: 10-27-2022 10:08-0400 Body mass index (BMI) [Ratio] 19.78 kg/m2 Christ Barontran Work Phone: OY-Dsbtbxiaga-Eauw [address] [place] Work Phone: 10-27-2022 10:08-0400 Body surface area Derived from formula 1.42 m2 Chrsit Barontran Work Phone: BY-Pvlllkuqkt-Cbil [address] [place] Work Phone: 10-27-2022 10:08-0400 Body weight 46.72 kg Christ Barontran Work Phone: BL-Rmigwcgoji-Wytb [address] [place] Work Phone: 10-27-2022 10:08-0400 Diastolic blood pressure 48 mm[Hg] Christ Bray Van Nostran Work Phone: XL-Jfgagnazis-Yhgx [address] [place] Work Phone: 10-27-2022 10:08-0400 Heart rate 90 /min Christ Bray Van Nostran Work Phone: XW-Kinskkljiy-Qarh [address] [place] Work Phone: 10-27-2022 10:08-0400 SaO2% (BldA) [Mass fraction] 93 % Christ Bray Van Nostran Work Phone: MN-Bpicytebte-Mrrb [address] [place] Work Phone: 10-27-2022 10:08-0400 Systolic blood pressure 99 mm[Hg] Christ Bray Van Nostran Work Phone: JC-Kwnxlcyqaa-Hihz [address] [place] Work Phone: 10-16-2022 07:51-0400 Body temperature 98.29 [degF] Evelin Moapa DO Work Phone: [facility] 10-16-2022 07:51-0400 Diastolic blood pressure 77 mm[Hg] Evelin Moapa DO Work Phone: [facility] 10-16-2022 07:51-0400 Heart rate 81 /min Evelin Moapa DO Work Phone: [facility] 10-16-2022 07:51-0400 Respiratory rate 18 /min Evelin Moapa DO Work Phone: [facility] 10-16-2022 07:51-0400 SaO2% (BldA) [Mass fraction] 92 % Evelin Moapa DO Work Phone: [facility] 10-16-2022 07:51-0400 Systolic blood pressure 128 mm[Hg] Evelin Moapa DO Work Phone: [employer] 10-16-2022 05:00-0400 Body mass index (BMI) [Ratio] 20.14 kg/m2 Evelin Moapa DO Work Phone: [facility] 10-16-2022 05:00-0400 Body weight 46.78 kg Evelin Moapa DO Work Phone: [facility] 10-15-2022 14:41-0400 Body height 152.4 cm Evelin Moapa DO Work Phone: [facility] 10-07-2022 13:41-0400 Body mass index (BMI) [Ratio] 20.09 kg/m2 Christ Rashad Maraltran DO Work Phone: [facility] 10-07-2022 13:41-0400 Body temperature 97.2 [degF] Christ Barontran DO Work Phone: [facility] 10-07-2022 13:41-0400 Body weight 47.45 kg Christ Adorno Maraltran DO Work Phone: [facility] 10-07-2022 13:41-0400 Diastolic blood pressure 70 mm[Hg] Christ Adorno Maraltran DO Work Phone: [facility] 10-07-2022 13:41-0400 Heart rate 67 /min Christ Adorno Maraltran DO Work Phone: [facility] 10-07-2022 13:41-0400 Respiratory rate 12 /min Christ Adorno Maraltran DO Work Phone: [facility] 10-07-2022 13:41-0400 SaO2% (BldA) [Mass fraction] 90 % Christ Adorno Maraltran DO Work Phone: [facility] 10-07-2022 13:41-0400 Systolic blood pressure 122 mm[Hg] Christ Adorno Maraltran DO Work Phone: [facility] 09-11-2022 13:01-0400 Body height 153.67 cm Christ Gardiner Work Phone: SJ-Ftseaqsdyo-Kdog [address] [place] Work Phone: 09-11-2022 13:01-0400 Body mass index (BMI) [Ratio] 19.59 kg/m2 Christ Barontran Work Phone: IV-Yxuksljieo-Krvx [address] [place] Work Phone: 09-11-2022 13:01-0400 Body surface area Derived from formula 1.41 m2 Christ Adorno Nostran Work Phone: TD-Redgvscyru-Dkgh [address] [place] Work Phone: 09-11-2022 13:01-0400 Body weight 46.27 kg Christ Adorno Nostran Work Phone: TD-Cibgtyihtj-Fbpp [address] [place] Work Phone: 09-11-2022 13:01-0400 Diastolic blood pressure 67 mm[Hg] Christ Adorno Nostran Work Phone: TR-Wgajtnnlso-Qwdn [address] [place] Work Phone: 09-11-2022 13:01-0400 Heart rate 57 /min Christ Barontran Work Phone: SR-Npselzrgig-Gykg [address] [place] Work Phone: 09-11-2022 13:01-0400 SaO2% (BldA) [Mass fraction] 92 % Christ Barontran Work Phone: XK-Telnkbxqkt-Prmh [address] [place] Work Phone: 09-11-2022 13:01-0400 Systolic blood pressure 135 mm[Hg] Christ Asa Adorno Nostran Work Phone: JK-Wmpflqxyws-Dbix [address] [place] Work Phone: 06-19-2022 10:40-0400 Body mass index (BMI) [Ratio] 24.08 kg/m2 Christ Rashad Maraltran DO Work Phone: [facility] 06-19-2022 10:40-0400 Body temperature 98.01 [degF] Christ Gardiner DO Work Phone: [facility] 06-19-2022 10:40-0400 Body weight 47.85 kg Christ Adorno Nostran DO Work Phone: [facility] 06-19-2022 10:40-0400 Diastolic blood pressure 66 mm[Hg] Christ Adorno Nostran DO Work Phone: [facility] 06-19-2022 10:40-0400 Heart rate 61 /min Christ Adorno Nostran DO Work Phone: [facility] 06-19-2022 10:40-0400 Respiratory rate 16 /min Christ Adorno Nostran DO Work Phone: [facility] 06-19-2022 10:40-0400 SaO2% (BldA) [Mass fraction] 91 % Christ Adorno Nostran DO Work Phone: [facility] 06-19-2022 10:40-0400 Systolic blood pressure 113 mm[Hg] Christ Adorno Nostran DO Work Phone: [facility] 06-12-2022 08:55-0400 Body height 153.67 cm Christ Adorno Nostran Work Phone: OY-Tkmruloqvv-Pxop [address] [place] Work Phone: 06-12-2022 08:55-0400 Body mass index (BMI) [Ratio] 20.55 kg/m2 Christ Adorno Nostran Work Phone: ME-Suxzejefoe-Gfhe [address] [place] Work Phone: 06-12-2022 08:55-0400 Body surface area Derived from formula 1.44 m2 Christ Adorno Nostran Work Phone: VL-Irqmmqwudt-Bnkb [address] [place] Work Phone: 06-12-2022 08:55-0400 Body weight 48.54 kg Christ Adorno Nostran Work Phone: UO-Mkumsavtcv-Yypd [address] [place] Work Phone: 06-12-2022 08:55-0400 Diastolic blood pressure 65 mm[Hg] Christ Bray Rashad Maraltran Work Phone: JF-Xvwuxekfvm-Gunj [address] [place] Work Phone: 06-12-2022 08:55-0400 Heart rate 68 /min Christ Barontran Work Phone: DQ-Hhjjozjdrv-Bldq [address] [place] Work Phone: 06-12-2022 08:55-0400 SaO2% (BldA) [Mass fraction] 95 % Christ Adorno Nostran Work Phone: NH-Rncjjilpys-Knld [address] [place] Work Phone: 06-12-2022 08:55-0400 Systolic blood pressure 145 mm[Hg] Christ Bray Rashad Nostran Work Phone: ZW-Oqtuhfxvkh-Pomp [address] [place] Work Phone: 06-10-2022 13:57-0400 Body mass index (BMI) [Ratio] 24.06 kg/m2 Christ Adorno Maraltran DO Work Phone: [facility] 06-10-2022 13:57-0400 Body temperature 98.01 [degF] Christ Barontran DO Work Phone: [facility] 06-10-2022 13:57-0400 Body weight 47.81 kg Christ Barontran DO Work Phone: [facility] 06-10-2022 13:57-0400 Diastolic blood pressure 62 mm[Hg] Christ Barontran DO Work Phone: [facility] 06-10-2022 13:57-0400 Heart rate 66 /min Christ Barontran DO Work Phone: [facility] 06-10-2022 13:57-0400 Respiratory rate 14 /min Christ Barontran DO Work Phone: [facility] 06-10-2022 13:57-0400 SaO2% (BldA) [Mass fraction] 92 % Christ Gardiner DO Work Phone: [facility] 06-10-2022 13:57-0400 Systolic blood pressure 130 mm[Hg] Christ Gardiner DO Work Phone: [facility] 05-30-2022 15:11-0400 Heart rate 61 /min Christ Gardiner DO Work Phone: [facility] 05-30-2022 15:11-0400 SaO2% (BldA) [Mass fraction] 90 % Christ Gardiner DO Work Phone: [facility] 05-30-2022 14:57-0400 Body mass index (BMI) [Ratio] 24.35 kg/m2 Christ Gardiner DO Work Phone: [facility] 05-30-2022 14:57-0400 Body temperature 97.59 [degF] Christ Gardiner DO Work Phone: [facility] 05-30-2022 14:57-0400 Body weight 48.4 kg Christ Gardiner DO Work Phone: [facility] 05-30-2022 14:57-0400 Respiratory rate 12 /min Christ Gardiner DO Work Phone: [facility] 04-15-2022 14:18-0500 Body height 141 cm Christ Gardiner DO Work Phone: [facility] 04-15-2022 14:18-0500 Body mass index (BMI) [Ratio] 24.9 kg/m2 Christ Gardiner DO Work Phone: [facility] 04-15-2022 14:18-0500 Body temperature 97.11 [degF] Christ Gardiner DO Work Phone: [facility] 04-15-2022 14:18-0500 Body weight 49.49 kg Christ Gardiner DO Work Phone: [facility] 03-07-2023 14:18-0500 Diastolic blood pressure 60 mm[Hg] Christmayra Barontran DO Work Phone: [facility] 04-15-2022 14:18-0500 Heart rate 63 /min Christ Rashad Agosto DO Work Phone: [facility] 04-15-2022 14:18-0500 Respiratory rate 14 /min Christ Baronnell DO Work Phone: [facility] 04-15-2022 14:18-0500 SaO2% (BldA) [Mass fraction] 92 % Christ Baronnell DO Work Phone: [facility] 04-15-2022 14:18-0500 Systolic blood pressure 108 mm[Hg] Christ Rashad Agosto DO Work Phone: [facility] 03-12-2022 09:59-0500 Body height 153.67 cm Christ Gardiner Work Phone: DM-Emjsdkgdgf-Quxb a Work Phone: 03-12-2022 09:59-0500 Body mass index (BMI) [Ratio] 20.94 kg/m2 Christ Gardiner Work Phone: ZP-Xnczyqodnb-Yabo a Work Phone: 03-12-2022 09:59-0500 Body surface area Derived from formula 1.45 m2 Christ Gardiner Work Phone: BF-Htrjvvnpup-Jdda a Work Phone: 03-12-2022 09:59-0500 Body weight 49.44 kg Christ Gardiner Work Phone: CZ-Bpiuyeziei-Nhio a Work Phone: 03-12-2022 09:59-0500 Diastolic blood pressure 70 mm[Hg] Christ Gardiner Work Phone: XA-Qjtknvmxqf-Atgo a Work Phone: 03-12-2022 09:59-0500 Heart rate 62 /min Christ E Van Nostran Work Phone: YJ-Mihrgsupjt-Nvok a Work Phone: 03-12-2022 09:59-0500 SaO2% (BldA) [Mass fraction] 92 % Christ Bray Van Nostran Work Phone: TM-Zelwexfxgg-Agle a Work Phone: 03-12-2022 09:59-0500 Systolic blood pressure 129 mm[Hg] Christ Bray Van Nostran Work Phone: MN-Abwphglkth-Sdzw a Work Phone: 10-16-2021 10:45-0400 Body mass [...] 10-16-2021 10:45-0400 Respiratory rate 12 /min Christ Adorno Nostran Work Phone: [facility] Work Phone: 10-16-2021 10:45-0400 SaO2% (BldA) [Mass fraction] 93 % Christ Adorno Nostran Work Phone: [facility] Work Phone: 10-16-2021 10:45-0400 Systolic blood pressure 150 mm[Hg] Christ Adorno Nostran Work Phone: [facility] Work Phone: 08-14-2021 13:12-0400 Body height 153.67 cm Christ Adorno Nostran Work Phone: QI-Pnnsqzbrry-Jbzk [address] [place] Work Phone: 08-14-2021 13:12-0400 Body mass index (BMI) [Ratio] 20.36 kg/m2 Christ Adorno Nostran Work Phone: AY-Ebhxffples-Zrlq [address] [place] Work Phone: 08-14-2021 13:12-0400 Body surface area Derived from formula 1.43 m2 Christ Adorno Nostran Work Phone: WQ-Ywmvzepqkt-Fzxc [address] [place] Work Phone: 08-14-2021 13:12-0400 Body weight 48.08 kg Christ Adorno Nostran Work Phone: ZE-Xhllgerdge-Xqjm [address] [place] Work Phone: 08-14-2021 13:12-0400 Diastolic blood pressure 72 mm[Hg] Christ Bray Van Nostran Work Phone: JO-Wvfarxzfem-Bqbt [address] [place] Work Phone: 08-14-2021 13:12-0400 Heart rate 64 /min Christ Adorno Nostran Work Phone: EK-Yrfnmfcytk-Vgnb [address] [place] Work Phone: 08-14-2021 13:12-0400 SaO2% (BldA) [Mass fraction] 96 % Christ Bray Van Nostran Work Phone: AG-Zqbwzmrkmn-Uvbh [address] [place] Work Phone: 08-14-2021 13:12-0400 Systolic blood pressure 142 mm[Hg] Christ Bray Van Nostran Work Phone: HC-Rzhymurkls-Wcsp [address] [place] Work Phone: 04-11-2021 10:39-0500 Body height 153.67 cm Christ Bray Van Nostran Work Phone: [facility] Work Phone: 04-11-2021 10:39-0500 Body mass index (BMI) [Ratio] 20.07 kg/m2 Christ Bray Van Nostran Work Phone: [facility] Work Phone: 04-11-2021 10:39-0500 Body surface area Derived from formula 1.43 m2 Christ Bray Van Nostran Work Phone: [facility] Work Phone: 04-11-2021 10:39-0500 Body temperature 97.5 [degF] Christ Bray Van Nostran Work Phone: [facility] Work Phone: 04-11-2021 10:39-0500 Body weight 47.4 kg Christ Bary Van Nostran Work Phone: [facility] Work Phone: 04-11-2021 10:39-0500 Diastolic blood pressure 72 mm[Hg] Christ Bray Van Nostran Work Phone: [facility] Work Phone: 04-11-2021 10:39-0500 Heart rate 63 /min Christ Bray Van Nostran Work Phone: [facility] Work Phone: 04-11-2021 10:39-0500 Respiratory rate 10 /min Christ Barontran [facility] Work Phone: 04-11-2021 10:39-0500 SaO2% (BldA) [Mass fraction] 96 % Christ Adorno Nostran [facility] Phone: [facility] Work Phone: 04-11-2021 10:39-0500 Systolic blood pressure 116 mm[Hg] Christ Barontran [facility] Work Phone: 04-05-2021 11:27-0500 Body height 153.67 cm Christ Barontran Work Phone: GB-Gqwjymhghj-Brer a Work Phone: 04-05-2021 11:27-0500 Body mass index (BMI) [Ratio] 19.98 kg/m2 Christ Barontran Work Phone: PY-Ubzidqhbek-Tzfo a Work Phone: 04-05-2021 11:27-0500 Body surface area Derived from formula 1.42 m2 Christ Barontran Work Phone: KD-Gnauohajwi-Jbki a Work Phone: 04-05-2021 11:27-0500 Body weight 47.17 kg Christ Barontran Work Phone: TO-Xeqrbtjinu-Oima a Work Phone: 04-05-2021 11:27-0500 Diastolic blood pressure 40 mm[Hg] Christ Adorno Nostran Work Phone: LD-Smttekgvra-Ebyv a Work Phone: 04-05-2021 11:27-0500 Heart rate 63 /min Christ Adorno Nostran Work Phone: AM-Bxestqjdkq-Puff a Work Phone: 04-05-2021 11:27-0500 SaO2% (BldA) [Mass fraction] 95 % Christ Gardiner Work Phone: QZ-Kcxafuuhcx-Lyip a Work Phone: 04-05-2021 11:27-0500 Systolic blood pressure 82 mm[Hg] Christ Barontran Work Phone: XC-Minjrvezeo-Smod a Work Phone: 03-08-2021 14:30-0500 Body height 153.67 cm Christ Barontran Work Phone: MI-Jcezyxpaql-Vexf na Work Phone: 03-08-2021 14:30-0500 Body mass index (BMI) [Ratio] 19.59 kg/m2 Christ Asa Rashad Aliciatran Work Phone: PX-Qfsalepoxs-Iums na Work Phone: 03-08-2021 14:30-0500 Body surface area Derived from formula 1.41 m2 Christ Barontran Work Phone: DM-Sycedajmsz-Glst na Work Phone: 03-08-2021 14:30-0500 Body weight 46.27 kg Christ Barontran Work Phone: DL-Xdzzjwbgho-Jcgb na Work Phone: 03-08-2021 14:30-0500 Diastolic blood pressure 74 mm[Hg] Christ Asa Rashad Aliciatran Work Phone: GO-Howujjdwee-Kvqd na Work Phone: 03-08-2021 14:30-0500 Heart rate 59 /min Christ Bray Rashad Aliciatran Work Phone: WW-Wnuzmaopki-Hobk na Work Phone: 03-08-2021 14:30-0500 SaO2% (BldA) [Mass fraction] 94 % Christ Bray Rashad Aliciatran Work Phone: QZ-Oartgoopqw-Jnrb na Work Phone: 03-08-2021 14:30-0500 Systolic blood pressure 144 mm[Hg] Christ Bray Van Nostran Work Phone: EY-Xehmdmcqdr-Cfcs na Work Phone: 03-08-2021 14:30-0500 0 1 Christ Bray Van Nostran Work Phone: CV-Kvyckubvbc-Muxl na Work Phone: Comment on above: PainScale [...] mm[Hg] Christ Bray Van Nostran Work Phone: [facility] Work Phone: 10-29-2020 07:44-0400 Body [...] [degF] Christ Bray Van Nostran Work Phone: [facility] Work Phone: 09-10-2020 10:00-0400 Body weight 45.36 kg Christ Bray Van Nostran Work Phone: [facility] Work Phone: 09-10-2020 10:00-0400 Diastolic blood pressure 66 mm[Hg] Christ Bray Van Nostran Work Phone: [facility] Work Phone: 09-10-2020 10:00-0400 Heart rate 59 /min Christ Bray Van Nostran Work Phone: [facility] Work Phone: 09-10-2020 10:00-0400 SaO2% (BldA) [Mass fraction] 98 % Christ Bray Van Nostran Work Phone: [facility] Work Phone: 09-10-2020 10:00-0400 Systolic blood pressure 158 mm[Hg] Christ Barontran Work Phone: [facility] Work Phone: 07-30-2020 14:11-0400 Body height 182.88 cm Christ Adorno Nostran Work Phone: [facility] Work Phone: 07-30-2020 14:11-0400 Body mass index (BMI) [Ratio] 10.58 kg/m2 Christ Barontran Work Phone: [facility] Work Phone: 07-30-2020 14:11-0400 Body surface area Derived from formula 1.43 m2 Christ Adorno Nostran Work Phone: [facility] Work Phone: 07-30-2020 14:11-0400 Body temperature 97.7 [degF] Christ Adorno Nostran Work Phone: [facility] Work Phone: 07-30-2020 14:11-0400 Body weight 35.38 kg Christ Barontran Work Phone: [facility] Work Phone: 07-30-2020 14:11-0400 Heart rate 67 /min Christ Asa Rashad Aliciatran Work Phone: [facility] Work Phone: 03-12-2020 11:53-0500 BMI (Body Mass Index) 19.96 kg/m2 Christ Gardiner [facility] Work Phone: 03-12-2020 11:53-0500 Body Temperature 97 [degF] Christ Gardiner [facility] Work Phone: 03-12-2020 11:53-0500 Body weight 46.35 kg Christ Gardiner [facility] Work Phone: 03-12-2020 11:53-0500 BP Diastolic 82 mm[Hg] Christ Rashad Nostran [facility] Work Phone: 03-12-2020 11:53-0500 BP Systolic 135 mm[Hg] Christ Van Nostran [facility] Work Phone: 03-12-2020 11:53-0500 BSA (Body Surface Area) 1.4 m2 Christ Van Nostran [facility] Work Phone: 03-12-2020 11:53-0500 Pulse (Heart Rate) 74 /min Christ Gardiner [facility] Work Phone: 03-12-2020 11:53-0500 Pulse Oximetry 98 % Christmayra Barontran [facility] Work Phone: 09-06-2019 12:14-0400 BMI (Body Mass Index) 20.15 kg/m2 Christ Rashad Nostran [facility] Work Phone: 09-06-2019 12:14-0400 Body Temperature 98 [degF] Christ Rashad Nostran [facility] Work Phone: 09-06-2019 12:14-0400 Body weight 46.81 kg Christ Barontran [facility] Work Phone: 09-06-2019 12:14-0400 BP Diastolic 71 mm[Hg] Christ Rashad Aliciatran [facility] Work Phone: 09-06-2019 12:14-0400 BP Systolic 128 mm[Hg] Christ Rashad Nostran [facility] Work Phone: 09-06-2019 12:14-0400 BSA (Body Surface Area) 1.41 m2 Christ Adorno Nostran [facility] Work Phone: 09-06-2019 12:14-0400 Pulse (Heart Rate) 59 /min Christ Gardiner [facility] Work Phone: 09-06-2019 12:14-0400 Pulse Oximetry 93 % Christ Gardiner [facility] Work Phone: 12-10-2018 [...] 16:28-0400 Body Temperature 97.7 [degF] Costa Nieto [facility] Work Phone: 11-30-2018 16:28-0400 Body weight 43.55 kg Costa Nieto [facility] Work Phone: 11-30-2018 16:28-0400 BP Diastolic 71 mm[Hg] Costa Nieto [facility] Work Phone: 11-30-2018 16:28-0400 BP Systolic 110 mm[Hg] Costa Nieto [facility] Work Phone: 11-30-2018 16:28-0400 BSA (Body Surface Area) 1.37 m2 Costa Nieto [facility] Work Phone: 11-30-2018 16:28-0400 Pulse (Heart Rate) 68 /min Costa Nieto [facility] Work Phone: 11-30-2018 16:28-0400 Pulse Oximetry 96 % Costa Nieto [facility] Work Phone: 11-30-2018 16:28-0400 Respiratory Rate 12 /min Costa Nieto [facility] Work Phone: 05-26-2018 16:15-0400 BMI (Body Mass Index) 18.98 kg/m2 Benjy Cabralohar [facility] Work Phone: 05-26-2018 16:15-0400 Body Temperature 98.1 [degF] [facility] Work Phone: 05-26-2018 16:15-0400 Body weight 44.08 kg Chrismotai Hugo [facility] Work Phone: 05-26-2018 16:15-0400 BP Diastolic 72 mm[Hg] Niralitai Hugo [facility] Work Phone: 05-26-2018 16:15-0400 BP Systolic 124 mm[Hg] Benjy Cabralohar [facility] Work Phone: 05-26-2018 16:15-0400 BSA (Body Surface Area) 1.37 m2 Chrisfort [facility] Hugo [facility] Work Phone: 05-26-2018 16:15-0400 Pulse (Heart Rate) 58 /min Yu [facility] Work Phone: 05-26-2018 16:15-0400 Pulse Oximetry 95 % Benjy Garnett [facility] Work Phone: 05-26-2018 16:15-0400 Respiratory Rate 12 /min Chrischapo Hugo [facility] Work Phone: 05-26-2018 16:15-0400 Weight 44.08 kg Benjy Garnett [facility] Work Phone: 07-07-2017 07:35-0400 Body temperature 37.0 degrees C [facility] Comment on above: Result Comment: NOTE: PATIENT RESULTS AR E NOT CORRECTED FOR TEMPERATURE. Performed By: #### U AMIC ####[address] [id number] 07-06-2017 17:24-0400 Body temperature 37.0 degrees C [facility] Comment on above: Result Comment: NOTE: PATIENT RESULTS AR E NOT CORRECTED FOR TEMPERATURE. Performed By: #### U A ####[address] [id number] 07-03-2017 03:35-0400 Body temperature 37.0 degrees C [facility] Comment on above: Result Comment: NOTE: PATIENT RESULTS AR E NOT CORRECTED FOR TEMPERATURE. Performed By: #### L IPID ####[place] [id number] Encounters Encounter Date Encounter Type Care Provider Facility Start: 12-05-2024 [facility] Start: 10-25-2024 ambulatory Kam Walters ty:[facility] Start: 10-25-2024 [facility]istered [facility] Start: 09-13-2024 ambulatory Kam Walters ty:[facility] Start: 09-13-2024 Registered Referred Kam Ocampo MD -[facility] Start: 08-17-2024 End: 08-17-[address] Kaden Corcoran MD -[facility] Start: 08-17-2024 End: 08-17-[address] Jacobo Moya DO Work Phone: -[facility] Start: 08-05-2024 Non-patient / Non-visit Dr. Neymar Cunningham MD -[facility] Work Phone: Start: 08-04-2024 Non-patient / Non-visit Dr. Neymar Cunningham MD -[facility] Work Phone: Start: 08-04-2024 End: 08-04-2024 ambulatory [facility] Facility:[facility] Start: 08-04-2024 End: 08-04-2024 Non-patient / Non-visit Dr. Colten Palacios MD -[facility] Work Phone: Start: 08-03-2024 Non-patient / Non-visit Nomi Lee nd, DO [facility] Start: 08-03-2024 Non-patient / Non-visit Dr. Johnny LAU -[facility] Work Phone: Start: 08-02-2024 End: 08-05-2024 Evaluation and management of inpatient Dr. Janine Harrison MD -[facility] Work Phone: Start: 08-02-2024 ambulatory Kam Ocampo Sr. Facilyaa ty:[facility] Start: 08-02-2024 Registered Referred Kam Ocampo MD -[facility] Start: 08-01-2024 End: 08-01-2024 ambulatory Kam Ocampo Sr. Facility:[facility] Start: 08-01-2024 End: 08-01-2024 [facility] Start: 08-01-2024 [facility] Start: 08-01-2024 End: 08-01-2024 ambulatory Kam FUCHS Facility:[facility] Start: 07-28-2024 Non-patient / Non-visit Dr. Neymar Cunningham MD -[facility] Work Phone: Start: 07-27-2024 Non-patient / Non-visit Dr. Neymar Cunningham MD -[facility] Work Phone: Start: 07-27-2024 Non-patient / Non-visit Dr. Thanh chopra DO [facility] Start: 07-26-2024 Non-patient / Non-visit [facility]. Thanh chopra DO [facility] Start: 07-26-2024 Non-patient / Non-visit Dr. Neymar Cunningham MD [facility] Work Phone: Start: 07-26-2024 ambulatory Kam Ocampo Sr. Facili ty:[facility] Start: 07-26-2024 Non-patient / Non-visit [facility] Connor [facility] Start: 07-25-2024 Non-patient / Non-visit Dr. Thanh chopra DO [facility] Start: 07-25-2024 ambulatory Kam Ocampo Sr. Facili ty:[facility] Start: 07-25-2024 End: 07-28-2024 Evaluation and management of inpatient Dr. Hayden Diaz DO -[facility] Work Phone: Start: 04-14-2024 End: 04-14-[address] Kam Ocampo Sr., DO Work Phone: [facility] Work Phone: Start: 04-14-2024 End: 04-14-2024 [facility] Start: 04-14-2024 End: 04-14-2024 ambulatory Kam Ocampo Sr. Facility:[facility] Start: 02-09-2024 ambulatory Kam Ocampo Sr. Facili ty:[facility] Start: 02-09-2024 Registered Referred [facility] -[facility] Start: 02-08-2024 End: 02-08-2024 Departed Referred Kam Ocampo MD -[facility] Start: 02-08-2024 End: 02-08-2024 ambulatory Kam Ocampo Sr. Facility:[facility] Start: 01-26-2024 End: 01-26-2024 Departed Referred Kam Ocampo MD -[facility] Start: 01-26-2024 End: 01-26-2024 ambulatory Kam FUCHS Facility:[facility] Start: 01-10-2024 End: 01-10-2024 ambulatory Kam FUCHS Facility:[facility] Start: 12-14-2023 End: 12-14-2023 ambulatory Kam FUCHS Facility:[facility] Start: 10-21-2023 End: 10-21-2023 ambulatory Kam FUCHS Facility:[facility] Start: 09-16-2023 ambulatory Kam FUCHS Facili ty:[facility] Start: 09-02-2023 End: 09-02-2023 ambulatory Kam FUCHS Facility:[facility] Start: 04-15-2023 End: 04-15-2023 ambulatory [facility] Work Phone: Start: 04-15-2023 End: 04-15-2023 Departed Referred [facility] Start: 03-11-2023 End: 03-11-2023 Departed Referred [facility] Start: 02-19-2023 End: 02-19-2023 ambulatory [facility] Work Phone: Start: 02-19-2023 End: 02-19-2023 Departed Referred [facility] Start: 02-19-[address] Amalia Donahue Work Phone: [facility] Start: 02-10-2023 End: 02-10-[address] Amalia Donahue Work Phone: [facility] Work Phone: Start: 02-10-2023 End: 02-10-[address] Amalia Donahue Work Phone: [facility] Start: 01-27-2023 End: 01-27-[address] Amalia Donahue Work Phone: [facility] Start: 12-22-2022 End: 12-22-[address] Amalia Donahue Work Phone: [facility] Work Phone: Start: 12-22-2022 End: 12-22-[address] Amalia Donahue Work Phone: [facility] Work Phone: Start: 12-02-2022 End: 12-02-[address] Amalia Donahue Work Phone: [facility] Work Phone: Start: 12-02-2022 End: 12-02-[address] Amalia Donahue Work Phone: [facility] Start: 12-02-[address] Amalia Donahue Work Phone: [facility] Start: 12-01-2022 End: 12-01-[address] Amalia Donahue Work Phone: [facility] Work Phone: Start: 12-01-2022 End: 12-01-[address] Amalia Donahue Work Phone: [facility] Start: 11-28-[address] Amalia Donahue Work Phone: [facility] Start: 11-10-[address] Amalia Donahue Work Phone: [facility] Start: 11-06-2022 End: 11-07-2022 Emergency department patient visit Dr. Amalia Donahue Work Phone: [facility]-Emergency Department Work Phone: Start: 11-06-[address] Amalia Donahue Work Phone: [facility] Start: 11-02-2022 Non-patient / Non-visit Dr. Shelbi Donahue Work Phone: [facility] Work Phone: Start: 11-01-2022 Non-patient / Non-visit Dr. Shelbi Donahue Work Phone: [facility] Work Phone: Start: 10-31-2022 Non-patient / Non-visit Dr. Shelbi Donahue Work Phone: [facility] Work Phone: Start: 10-31-2022 Non-patient / Non-visit Dr. Shelbi Donahue Work Phone: [facility] Start: 10-31-2022 Non-patient / Non-visit Dr. Shelbi Donahue Work Phone: [facility] Start: 10-30-2022 End: 11-02-2022 Evaluation and management of inpatient [facility] Work Phone: Start: 10-27-2022 Office outpatient vi sit 15 minutes Christ Gardiner Work Phone: VL-Rcxdrgycpe-Lqnoyzlb [address] [place] Work Phone: Start: 10-10-2022 Evaluation and management of inpatient SAIDA ADORNO MARIA DEL CARMEN [facility] Start: 10-10-2022 End: 10-16-2022 Evaluation and management of inpatient Evelin Salcedo DO Work Phone: [facility]E TELEMET[facility] Comment on above: Proctocolitis (Prima ry Dx); Abdominal pain, generalized; Constipation, unspecified constipation type Start: 10-07-2022 End: 10-07-2022 ambulatory [facility] Start: 10-07-2022 End: 10-07-2022 Office outpatient visit 25 minutes Christ Gardiner DO Work Phone: [facility] Comment on above: Benign essential hyp ertension (Primary Dx); Osteoporosis, unspecified osteoporosis type, unspecified pathological fracture presence; Coronary artery disease without angina pectoris, unspecified vessel or lesion type, unspecified whether [place] or transplanted heart; Stage 3a chronic kidney disease (CMS/HCC); Hypercholesterolemia; Allergic rhinitis, unspecified seasonality, unspecified trigger; Multiple allergies; Lower abdominal pain; Anemia in other chronic diseases classified elsewhere Start: 09-11-2022 Office outpatient vi sit 10 minutes Christ Gardiner Work Phone: RE-Rhqmgrsfqm-Jjrzbp [address] [place] Work Phone: Start: 09-11-[address] Christ Gardiner Facility:[id number] Start: 08-27-2022 AUDIT Christ Vazquez Work Phone: K[facility]Nfysbnhmog-Hwyuc Work Phone: Start: 06-30-[address] Christ Gardiner Facility:[id number] Start: 06-19-2022 End: 06-19-2022 ambulatory [facility] Start: 06-19-2022 End: 06-19-2022 Office outpatient visit 15 minutes Christ Gardiner DO Work Phone: [facility] Comment on above: Hypoxia; Pneumonia of right lower lobe due to infectious organism; Abdominal pain, unspecified abdominal location Start: 06-12-2022 Office outpatient vi sit 15 minutes Christ Gardiner Work Phone: AP-Opjnpmemku-Urhetxdh [address] [place] Work Phone: Start: 06-12-2022 ambulatory Ms. Apple Gorman lity: Start: 06-10-2022 End: 06-10-2022 ambulatory [facility] Start: 06-10-2022 End: 06-10-2022 Office outpatient visit 25 minutes Christ Gardiner DO Work Phone: [facility] Comment on above: Pneumonia of right l ower lobe due to infectious organism (Primary Dx); Hypoxia; Benign essential hypertension; Abdominal pain, unspecified abdominal location; Pneumonia of right lung due to infectious organism, unspecified part of lung Start: 05-30-[address] Christ Gardiner Facility:[id number] Start: 05-30-2022 End: 05-30-2022 ambulatory [facility] Start: 05-30-2022 End: 05-30-2022 Office outpatient visit 40 minutes Christ Gardiner DO Work Phone: [facility] Comment on above: Hypoxia (Primary Dx) ; Coronary artery disease without angina pectoris, unspecified vessel or lesion type, unspecified whether [place] or transplanted heart; Benign essential hypertension; Pneumonia of right lung due to infectious organism, unspecified part of lung Start: 05-29-2022 End: 05-30-2022 ambulatory [facility] Start: 05-09-[address] Christ Gardiner Facility:[id number] Start: 04-15-2022 Encounter for genera l adult medical examination without abnormal findings [facility] Ambulatory Start: 04-15-2022 End: 04-15-2022 ambulatory [facility] Start: 04-15-2022 End: 04-15-2022 Encounter for general adult medical examination without abnormal findings [facility] Ambulatory Start: 04-15-2022 End: 04-15-2022 Assay of hemosiderin, quant Christ Gardiner DO Work Phone: [facility] Work Phone: Start: 04-15-2022 End: 04-15-2022 Patient encounter procedure Christ Gardiner DO Work Phone: [facility] Comment on above: 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 (Primary Dx); Osteoporosis, unspecified osteoporosis type, unspecified pathological fracture presence; Screening for osteoporosis; Postmenopausal estrogen deficiency; Benign essential hypertension; Coronary artery disease without angina pectoris, unspecified vessel or lesion type, unspecified whether [place] or transplanted heart; Gastroesophageal reflux disease, unspecified whether esophagitis present; Stage 3a chronic kidney disease; Bilateral carotid artery stenosis; Aortic valve stenosis, etiology of cardiac valve disease unspecified; Anemia in other chronic diseases classified elsewhere; Hypercholesterolemia; Routine general medical examination at health care facility Start: 04-15-2022 End: 04-15-2022 Patient encounter status Christ Gardiner DO Work Phone: [facility] Work Phone: Start: 04-04-2022 Chart Update Christ Vazquez Work Phone: SL-Pguysofllk-Yobdl Work Phone: Start: 03-12-2022 FUV, Provider: Apple Beth, Status: Pen, Time: 11:30 AM Christ Gardiner Work Phone: [facility] Work Phone: Start: 03-12-2022 CAROTID, Provider: [facility], Status: Pen, Time: 10:00 AM Christ Gardiner Work Phone: [facility] Work Phone: Start: 03-12-2022 ECHO, Provider: RAI HART,MG CARD, Status: Pen, Time: 9:00 AM Christ Gardiner Work Phone: [facility] Work Phone: Start: 03-12-2022 ambulatory [employer]OR[employer] SPECIALIST APPLE AGUILAR Facyaa lity:[id number] Start: 03-11-2022 AUDIT Christ E Van N ostran Work Phone: [facility] Work Phone: Start: 03-10-2022 AUDIT Christ E Van N ostran Work Phone: [facility] Work Phone: Start: 02-24-2022 AUDIT Christ E Van N ostran Work Phone: [facility] Work Phone: Start: 02-19-2022 AUDIT Christ E Van N ostran Work Phone: [facility] Work Phone: Start: 10-17-2021 AUDIT Christ E Van N ostran Work Phone: [facility] Work Phone: Start: 10-16-[address] Christ Adorno Nosnell Facility:[id number] Start: 10-16-2021 Office outpatient vi sit 40 minutes Christ Bray Van Nostran Work Phone: [facility] Work Phone: Start: 08-14-2021 Office outpatient vi sit 15 minutes Christ Bray Van Nostran Work Phone: PA-Xxrpmzcwqq-Buqbxg [address] [place] Work Phone: Start: 07-25-2021 AUDIT Christ E Van N ostran Work Phone: [facility] Work Phone: Start: 06-18-2021 AUDIT Christ Asa Van N ostran Work Phone: [facility] Work Phone: Start: 05-27-2021 AUDIT Christ E Van N ostran Work Phone: [facility] Work Phone: Start: 05-22-2021 Rx Renewal Christ Bray Van N ostran Work Phone: [facility] Work Phone: Start: 05-21-2021 AUDIT Christ Asa Van N ostran Work Phone: [facility] Work Phone: Start: 04-18-2021 Chart Update Christ Bray Van N ostran Work Phone: DH-Aqrowpylqm-Tetlt Work Phone: Start: 04-15-2021 AUDIT Christ Asa Van N ostran Work Phone: [facility] Work Phone: Start: 04-11-2021 Adv care pln/ no alt dcsn mkr docd or refusal Christ Adorno Nostran Work Phone: [facility] Work Phone: Start: 04-05-2021 FUV, Provider: Apple Beth, Status: Pen, Time: 11:30 AM Christ Bray Van Nostran Work Phone: [facility] Work Phone: Start: 04-05-2021 Office outpatient vi sit 15 minutes Christ Bray Van Nostran Work Phone: KW-Uhkwfulpet-Ocghj Work Phone: Start: 04-04-2021 ECHO, Provider: RAI HART,MG CARD, Status: Pen, Time: 1:00 PM Christ Bray Van Nostran Work Phone: [facility] Work Phone: Start: 04-03-2021 AUDIT Christ E Van N ostran Work Phone: [facility] Work Phone: Start: 03-08-2021 Current tobacco non- user cad cap copd pv dm Christ Bray Van Nostran Work Phone: SJ-Jdynxeizcm-Aktvdw Work Phone: Start: 02-28-2021 AUDIT Christ Bray Van N ostran Work Phone: [facility] Work Phone: Start: 02-20-2021 AUDIT Christ Bray Van N ostran Work Phone: [facility] Work Phone: Start: 01-23-2021 AUDIT Christ E Van N ostran Work Phone: [facility] Work Phone: Start: 01-17-2021 AUDIT Christ E Van N ostran Work [...] Office outpatient vi sit 25 minutes Christ Bray Van Nostran Work Phone: [facility] Work Phone: Start: 07-30-2020 Office outpatient ne w 30 minutes Christ Bray Van Nostran Work Phone: [facility] Work Phone: Start: 07-30-2020 Patient encounter procedure Christ Asa Gardiner Work Phone: [facility] Work Phone: Start: 04-16-2020 Patient encounter procedure Christ Adorno Nostran [facility] Work Phone: Start: 04-06-2020 Office outpatient ne w 30 minutes Christ Gardiner Work Phone: [facility] Work Phone: Start: 04-06-2020 Patient encounter procedure Christ Adorno Nostran [facility] Work Phone: Start: 03-22-2020 Patient encounter procedure Christ Adorno Nostran [facility] Work Phone: Start: 03-12-2020 Patient encounter procedure Christ Adorno Nostran [facility] Work Phone: Start: 11-09-2019 Patient encounter procedure Christ Adorno Nostran [facility] Work Phone: Start: 09-06-2019 Patient encounter procedure Christ Adorno Nostran [facility] Work Phone: Start: 04-20-2019 Patient encounter procedure Christ Adorno Nostran [facility] Physicians Work Phone: Start: 03-04-2019 Patient encounter procedure Christ Adorno Nostran [facility] Work Phone: Start: 12-29-2018 Patient encounter procedure Christ Adorno Nostran [facility] Work Phone: Start: 12-21-2018 Patient encounter procedure Christ Van Nostran [facility] Work Phone: Start: 12-10-2018 Patient encounter procedure Fela Senthil [facility] Work Phone: Start: 11-30-2018 Patient encounter procedure Costa Nieto [facility] Work Phone: Start: 05-26-2018 Patient encounter procedure Chenguttai Hugo [facility] Work Phone: Start: 02-24-2018 Patient encounter procedure Chrisaden Cabralohar [facility] Work Phone: Start: 02-11-2018 Patient encounter procedure Benjy Cabralohar [facility] Work Phone: Start: 12-09-2017 Patient encounter procedure Eliot Shin Facility:[facility] Start: 11-25-2017 Patient encounter procedure Benjy Garnett [facility] Work Phone: Start: 11-19-2017 Patient encounter procedure Chrisjuanatayaa CabralHugo [facility] Work Phone: Start: 11-06-2017 Patient encounter procedure Benjy Cabralohar [facility] Work Phone: Start: 11-06-2017 Patient encounter procedure Benjy Garnett Facility:[facility] Start: 10-22-2017 Patient encounter procedure Benjy Garnett [facility] Work Phone: Start: 10-10-2017 Observation care discharge management Benjy Garnett [facility] Start: 10-10-2017 End: 10-13-2017 Evaluation and management of inpatient Benjy Garnett Facility: Start: 10-09-2017 [facility] Start: 10-05-2017 Patient encounter procedure Benjy Garnett Facility:[facility] Start: 09-06-2017 End: 09-08-2017 Evaluation and management of inpatient Daniel-Maximo Cheres Facility:[facility] Start: 09-05-2017 Emergency dept visit high severity&threat funcj [facility] Start: 09-05-2017 End: 09-05-2017 Patient encounter procedure Maria A Vance Facility: Start: 08-26-2017 End: 09-01-2017 Evaluation and management of inpatient Jessenia Tapia Facility:[facility] Start: 08-25-2017 Emergency dept visit high severity&threat funcj Benjy Garnett [facility] Start: 08-25-2017 End: 08-26-2017 Patient encounter procedure FINESSE PINEDA Facility:54 Start: 08-21-2017 Patient encounter procedure Benjy Garnett Facility:54 Start: 07-28-2017 Observation care discharge management Benjy Garnett [facility] Start: 07-28-2017 End: 07-29-2017 Evaluation and management of inpatient Benjy Garnett Facility:54 Start: 07-27-2017 Sbsq observation care/day [facility] Start: 07-26-2017 Initial observation care/day [facility] Start: 07-09-2017 End: 07-17-2017 Evaluation and management of inpatient Manny Arana Facility:54 Start: 07-02-2017 End: 07-02-2017 Patient encounter procedure Spencer Hardy Facility:54 Start: 06-18-2017 Patient encounter procedure Benjy Garnett [facility] Work Phone: Start: 04-15-2017 Patient encounter procedure Niralitayaa Rayaar [facility] Work Phone: Start: 03-20-2017 Patient encounter procedure Benjy Garnett [facility] Work Phone: Start: 03-02-2017 Patient encounter procedure Benjy Garnett Facility:[facility] Start: 02-16-2017 Patient encounter procedure Benjy Garnett [facility] Work Phone: Start: 01-21-2017 Patient encounter procedure Benjy Garnett Facility:[facility] Start: 01-12-2017 Patient encounter procedure Niralitayaa Rayaar [facility] Work Phone: Start: 11-25-2016 Patient encounter procedure Niralitayaa Rayaar [facility] Work Phone: Start: 10-01-2016 Patient encounter procedure Benjy Garnett [facility] Work Phone: Start: 07-30-2016 Patient encounter procedure Benjy Hugo [facility] Work Phone: Patient encounter procedure Christ Gradiner Work Phone: [facility] Work Phone: Procedures Date Procedure Procedure Detail Performing Clinician Start: 08-17-2024 Plain x-ray of pelvis and lower extremity Dr. Jacobo Moya DO Work Phone: Start: 08-17-2024 Radiologic examination knee [address] Jacobo Moya DO Work Phone: Start: 08-04-[address] Kam willoughby Sr. DO Work Phone: Start: 08-04-[address] Kam Ocampo Sr. DO Work Phone: Start: 08-03-2024 CT of head without contrast Dr. Kam barker Sr. DO Work Phone: Start: 08-03-2024 CT of pelvis without contrast Dr. Kam jara Sr. DO Work Phone: Start: 08-02-2024 Antibody screen Kam FUCHS Comment on above: Performed By: #### L500.2500, L100.0500 #### [facility] [address] [place], [place], [id number] Performed By: #### B [id number], BTS, BRC, [id number], BAGM ####[facility] [id number] [place], [place], [id number] Start: 08-02-2024 Urnls dip stick/tablet reagent auto [...] Order Comment: S Performed By: #### B , [id number] ####[facility] [id number] [place], [address] Start: 07-25-2024 Urnls dip stick/tablet reagent auto [...] CT of head without contrast Dr. Amalia Garduno gur Work Phone: Start: 10-30-2022 Plain chest X-ray [...] [facility] - PCP CHRIST GARDNIER Start: 06-19-2022 FOLLOW UP IN [facility] PR[facility] [...] 1996 panel - Serum or Plasma Sara merino Van Nostran DO Work Phone: Start: 03-12-2022 Follow-up visit Start: 03-12-2022 Echocardiography Christ Bray Van Nostran Work Phone: Start: 04-04-2021 Echocardiography Christ Bray Van Nostran Work Phone: Start: 04-03-2021 Lipid 1996 panel - Serum or Plasma Sara merino Van Nostran DO Work Phone: Start: 04-06-2020 Echocardiography Christ Van Nostran Start: 03-22-2020 Echocardiography Christ Van Nostran Start: 03-13-2020 Echocardiography Christ Van Nostran Start: 11-01-2019 Echocardiography Christ Adorno Nostran Start: 09-08-2019 Basic metabolic 1998 panel - Serum or Plasma Christ Adorno Nostran Start: 09-06-2019 Brain Natriuretic Peptide BNP Christ Adorno Nostran Start: 12-13-2018 Basic metabolic 1998 panel - [...] W Auto Differential panel - Blood Costa Pearlnacho Start: 11-30-2018 Comprehensive metabolic 2000 panel Costa Gerson Start: 10-09-2017 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6 yr/> Chenguttai Hugo Start: [...] njx ea seql iv push [facility] Start: 08-25-2017 Ther proph/dx njx iv push single/1st sbst/drug Chenguttai Hugo Start: 08-25-2017 Therapeutic injection iv push each new drug [facility] [place] Hugo Start: 07-28-2017 Iv infusion hydration each additional hour Chenguttai Hugo Start: 07-27-2017 Iv infusion hydration each additional hour [facility] Hugo Start: 07-26-2017 Iv infusion hydration each additional hour Chenguttai Hugo Start: 07-26-2017 Iv infusion therapy/prophylaxis /dx 1st to 1 hr Chengmotai Hugo Start: 07-07-2017 Echocardiography [facility] [place] Hugo Start: 07-04-2017 Resection of Right Large Intestine, Open Approach [facility] Hugo Start: 07-04-2017 Ultrasonography of Left Jugular Veins, Guidance [facility] [place] Hugo Start: 07-02-2017 Antibody screen [facility] Comment on above: Performed By: #### LIPID ####[place] [address] Start: 12-11-2011 Exploratory Laparoscopy Christ Gardiner Work Phone: Comment on above: explorative laparotomy ballon angioplast y; Start: 02-09-2009 CABG Christ Gardiner Work Phone: Start: 02-10-2008 Cataract surgery Christ Gardiner Work Phone: Start: 02-10-2008 Total knee replacement Christ Gardiner Work Phone: Start: 02-09-2003 Total knee replacement Christ Barontran Work Phone: Start: 02-10-1972 Appendectomy Christ Gardiner Work Phone: Start: 02-10-1972 Hysterectomy Christ Gardiner Work Phone: Appendectomy Benjy marion Comment on above: Completed: 1972 Cataract surgery Benjy Garnett Comment on above: Completed: 2008 Esophagogastroduodenoscopy C kayleigh Garnett History of CABG Chrisaden King kaylie Comment on above: Completed: 2009 End: 12-11-2011 History of Exploratory Laparoscopy Chris Garnett Hysterectomy Benjy marion Comment on above: Completed: 1972 Partial resection of colon S valentín Gardiner Work Phone: Screening colonoscopy Matthew Garnett Total knee replacement Chris Garnett Comment on above: Completed: 2003 Completed: 2008 Plan of Treatment Date Care Activity Detail Author Start: 05-30-2027 Lipid panel Lipid Panel [facility] Start: 04-03-2026 Lipid panel Lipid Panel [facility] Start: 08-17-2024 Plain x-ray of pelvi s and lower extremity HIP, UNI W/ Pelvis 2-3 Views [facility] Start: 08-17-2024 XR Knee 3 Views [facility] Start: 08-17-2024 XR knee, 3 views Knee 3 Views [facility] Start: 08-17-2024 XR Pelvis and Hip Views [facility] Start: 08-05-2024 Patient discharge [facility] Start: 08-03-2024 Following clinical pathway protocol [facility] Start: 08-03-2024 Application of intermittent pneumatic compression device [facility] Start: 08-02-2024 Assessment of risk o f venous thromboembolism [facility] Start: 08-02-2024 Insertion of cathete r into peripheral vein [facility] Start: 08-02-2024 Measuring intake and output [facility] Start: 08-02-2024 Oxygen therapy [facility] Start: 08-02-2024 Providing care accor ding to standard [facility] Start: 08-02-2024 Provision of activit y privileges [facility] Start: 08-02-2024 Referral for physica l therapy [facility] Start: 08-02-2024 Referral to gastroenterology service [facility] Start: 08-02-2024 Referral to occupati onal therapist [facility] Start: 08-02-2024 Referral to service [facility] Start: 08-02-2024 [facility] Start: 08-02-2024 Following clinical pathway protocol [facility] Start: 08-02-2024 Admission procedure [facility] Start: 08-02-2024 Hospital admission, emergency, from emergency room, medical nature [facility] Start: 08-02-2024 End: 08-02-2024 [facility] Start: 08-02-2024 Administration of bl ood product [facility] Start: 08-02-2024 Bacteria identified in Urine by Culture Urine Culture [facility] Start: 08-02-2024 Leukocyte reduced re d blood cells [facility] Start: 08-02-2024 Inhalation therapy procedure [facility] Start: 08-02-2024 Patient referral to dietitian [facility] Start: 07-28-2024 [facility] Start: 07-28-2024 Patient discharge [facility] Start: 07-28-2024 [facility] Start: 07-27-2024 Continuous pulse oximetry [facility] Start: 07-27-2024 Dual pressure sponta neous ventilation support [facility] Start: 07-26-2024 End: 07-26-2024 [facility] Start: 07-26-2024 Ambulation therapy management [facility] Start: 07-26-2024 Application of device [facility] Start: 07-26-2024 Exercises [facility] Start: 07-26-2024 Following clinical pathway protocol [facility] Start: 07-26-2024 Introduction of urin bhargav catheter [facility] Start: 07-26-2024 Neurovascular assessment [facility] Start: 07-26-2024 Patient education [facility] Start: 07-26-2024 Provision of activit y privileges [facility] Start: 07-26-2024 Recommendation to continue with treatment [facility] Start: 07-26-2024 Referral for physica l therapy [facility] Start: 07-26-2024 Referral to occupati onal therapist [facility] Start: 07-26-2024 Referral to service [facility] Start: 07-26-2024 Skin care [facility] Start: 07-26-2024 Vital signs measurements [facility] Start: 07-26-2024 Wound care [facility] Start: 07-26-2024 Continuous positive airway pressure ventilation treatment [facility] Start: 07-26-2024 Inhalation therapy procedure [facility] Start: 07-25-2024 [facility] Start: 07-25-2024 End: 07-25-2024 Following clinical pathway protocol [facility] Start: 07-25-2024 Assessment of risk o f venous thromboembolism [facility] Start: 07-25-2024 Consultation [facility] Start: 07-25-2024 Insertion of cathete r into peripheral vein [facility] Start: 07-25-2024 Oxygen therapy [facility] Start: 07-25-2024 Providing care accor ding to standard [facility] Start: 07-25-2024 Provision of activit y privileges [facility] Start: 07-25-2024 Referral for physica l therapy [facility] Start: 07-25-2024 Referral to occupati onal therapist [facility] Start: 07-25-2024 Referral to service [facility] Start: 07-25-2024 [facility] Start: 07-25-2024 Hospital admission, emergency, from emergency room, medical nature [facility] Start: 07-25-2024 Plain X-ray of femur Femur Min 2 Vie ws [facility] Start: 07-25-2024 End: 07-25-2024 [facility] Start: 07-25-2024 Verification routine [facility] Start: 07-25-2024 Admission procedure [facility] Start: 07-25-2024 [facility] Start: 07-08-2023 DTaP/Tdap/Td Vaccine s (2 - Td or Tdap) DTaP/Tdap/Td Vaccines (2 - Td or Tdap) [facility] Start: 05-30-2023 Creatinine measurement Creatinine Le tiffany [facility] Start: 05-30-2023 Potassium measurement Potassium Leve l [facility] Start: 05-10-2023 Screening for osteoporosis Bone Density Scan [facility] Start: 04-17-2023 Annual Wellness Visi t (AWV) Annual Wellness Visit (AWV) [facility] Start: 04-17-2023 Medicare Annual Well ness Visit Medicare Annual Wellness Visit (AWV) [facility] Start: 04-09-2023 End: 10-08-2023 CBC W Auto Differential panel - Blood CBC and Auto Differential Lab Routine Anemia in other chronic diseases classified elsewhere Expected: 04/09/2023 (Approximate), Expires: 10/08/2023 [facility] Service Area Work Phone: Comment on above: Expected: 04/09/2023 (Approximate), Expires: 10/08/2023 Start: 04-09-2023 End: 10-08-2023 Comprehensive metabolic 2000 panel - Serum or Plasma Comprehensive Metabolic Panel Lab Routine Stage 3a chronic kidney disease (CMS/HCC) Anemia in other chronic diseases classified elsewhere Expected: 04/09/2023 (Approximate), Expires: 10/08/2023 [facility] Work Phone: Comment on above: Expected: 04/09/2023 (Approximate), Expires: 10/08/2023 Start: 04-09-2023 End: 10-08-2023 Ferritin [Mass/volume] in Serum or Plasma Ferritin Lab Routine Anemia in other chronic diseases classified elsewhere Expected: 04/09/2023 (Approximate), Expires: 10/08/2023 [facility] Work Phone: Comment on above: Expected: 04/09/2023 (Approximate), Expires: 10/08/2023 Start: 04-09-2023 End: 10-08-2023 Iron and Iron binding capacity panel - Serum or Plasma Iron and TIBC Lab Routine Anemia in other chronic diseases classified elsewhere Expected: 04/09/2023 (Approximate), Expires: 10/08/2023 [facility] Work Phone: Comment on above: Expected: 04/09/2023 (Approximate), Expires: 10/08/2023 Start: 04-09-2023 End: 04-09-2023 Patient encounter procedure 04/09/2023 1:30 PM EST Office Visit [facility] [address] [place] [phone] Christ Gardiner DO [address] [facility], [address] [place] [id number] [facility] Start: 03-18-2023 FUV, Provider: Apple Beth, Status: Pen, Time: 1:00 PM FUV, Provider: Apple Beth, Status: Pen, Time: 1:00 PM NP-Cxspjiuwic-Diuj na [address] [place] Work Phone: Start: 03-12-2023 ECHO, Provider: MEDI NA HHVI,MG CARD, Status: Pen, Time: 1:00 PM ECHO, Provider: STANFORD HHVI,MG CARD, Status: Pen, Time: 1:00 PM SO-Lhlvxtippa-Osog na 140 [place] Work Phone: Start: 03-12-2023 Echocardiography Echocardiogram [facility] Start: 12-02-2022 Acid Fast Bacilli Culture Acid Fast Bacilli Culture [facility] Start: 12-02-2022 Acid Fast Bacilli Smear Acid F ast Bacilli Smear [facility] Start: 11-28-2022 Acid Fast Bacilli Culture Acid Fast Bacilli Culture [facility] Start: 11-28-2022 Acid Fast Bacilli Smear Acid F ast Bacilli Smear [facility] Start: 11-06-2022 Oxygen therapy [facility] Start: 11-06-2022 [facility] Start: 11-06-2022 Bacteria identified in Urine by Culture Urine Culture [facility] Start: 11-06-2022 [facility] Start: 11-02-2022 Patient discharge [facility] Start: 11-01-2022 Brain without Contrast Brain without Contrast [facility] Start: 11-01-2022 MR Brain WO contrast [facility] Start: 10-31-2022 Care planning and pr oblem solving actions [facility] Start: 10-31-2022 Brain/Head without Contrast Brain/Head without Contrast [facility] Start: 10-31-2022 CT Unspecified body region WO contrast [facility] Start: 10-30-2022 Bleeding precautions [facility] Start: 10-30-2022 Bedrest [facility] Start: 10-30-2022 Oxygen therapy [facility] Start: 10-30-2022 End: 10-30-2022 [facility] Start: 10-30-2022 Application of intermittent pneumatic compression device [facility] Start: 10-30-2022 Assessment of risk o f venous thromboembolism [facility] Start: 10-30-2022 Continuous pulse oximetry [facility] Start: 10-30-2022 Fall prevention [facility] Start: 10-30-2022 Insertion of cathete r into peripheral vein [facility] Start: 10-30-2022 Maintenance therapy [facility] Start: 10-30-2022 Patient referral to dietitian [facility] Start: 10-30-2022 Providing care accor ding to standard [facility] Start: 10-30-2022 Referral to occupati onal therapist [facility] Start: 10-30-2022 End: 10-30-2022 Referral to service [facility] Start: 10-30-2022 Speech therapy assessment [facility] Start: 10-30-2022 Vital signs measurements [facility] Start: 10-30-2022 Verification routine [facility] Start: 10-30-2022 Admission procedure [facility] Start: 10-30-2022 Following clinical pathway protocol [facility] Start: 10-30-2022 Bleeding precautions [facility] Start: 10-30-2022 Consultation [facility] Start: 10-30-2022 Oxygen therapy [facility] Start: 10-30-2022 Plain chest X-ray Chest 1 View [facility] Start: 10-30-2022 [facility] Start: 10-16-2022 Creatinine measurement Creatinine Le tiffany [facility] Start: 10-16-2022 Potassium measurement Potassium Leve l [facility] Start: 10-16-2022 End: 10-16-2022 Patient encounter procedure 10/16/2022 1:00 PM EDT Office Visit [facility] [address] [place] [phone] Christ Gardiner DO [address] [facility], [address] [place] [address] [facility] Start: 10-10-2022 Influenza vaccination Influenza Vacc ine (#1) [facility] Start: 09-11-2022 FUV, Provider: Apple Beth, Status: Pen, Time: 1:00 PM FUV, Provider: Apple Beth, Status: Pen, Time: 1:00 PM HG-[id number]-[address] [place] Work Phone: Start: 09-08-2022 FUV, Provider: Apple Beth, Status: Pen, Time: 11:30 AM FUV, Provider: Apple Beth, Status: Pen, Time: 11:30 AM YC-[id number]-Fpjh a Work Phone: Start: 06-30-2022 End: 06-20-2023 XR Chest 2 Views XR chest 2 views Imaging Routine Pneumonia of right lower lobe due to infectious organism Expected: 06/30/2022 (Approximate), Expires: 06/20/2023 [facility] Service Area Work Phone: Comment on above: Expected: 06/30/2022 (Approximate), Expires: 06/20/2023 Start: 06-19-2022 End: 06-19-2022 Patient encounter procedure 06/19/2022 10:40 AM EDT Office Visit [facility] [address] [facility] [address] [place] [phone] Christ Gardiner DO [address] [facility], [address] [place] [address] [facility] Start: 06-10-2022 End: 06-10-2022 Patient encounter procedure 06/10/2022 1:30 PM EDT Office Visit [facility] [address] [address] [place] [phone] Christ Gardiner, DO [address] [facility], [address] [place], [place] [id number] [facility] Start: 04-15-2022 Patient encounter procedure MCRANNUAL, Provider: Christ Gardiner, Status: Pen, Time: 2:00 PM [facility] Work Phone: Start: 04-15-2022 End: 04-16-2023 Basic metabolic 2000 panel - Serum or Plasma Basic Metabolic Panel Lab Routine Benign essential hypertension Coronary artery disease without angina pectoris, unspecified vessel or lesion type, unspecified whether [place] or transplanted heart Expected: 04/15/2022 (Approximate), Expires: 04/16/2023 [facility] Work Phone: Comment on above: Expected: 04/15/2022 (Approximate), Expires: 04/16/2023 Start: 04-15-2022 End: 04-16-2023 CBC panel - Blood by Automated count CBC Lab Routine Benign essential hypertension Coronary artery disease without angina pectoris, unspecified vessel or lesion type, unspecified whether [place] or transplanted heart Expected: 04/15/2022 (Approximate), Expires: 04/16/2023 [facility] Work Phone: Comment on above: Expected: 04/15/2022 (Approximate), Expires: 04/16/2023 Start: 04-15-2022 End: 04-16-2023 DXA Skeletal system Views for bone density XR DEXA bone density Imaging Routine Screening for osteoporosis Postmenopausal estrogen deficiency Expected: 04/15/2022, Expires: 04/16/2023 [facility] Service Area Work Phone: Comment on above: Expected: 04/15/2022 , Expires: 04/16/2023 Start: 04-15-2022 End: 04-16-2023 Lipid 1996 panel - Serum or Plasma Lipid Panel Lab Routine Coronary artery disease without angina pectoris, unspecified vessel or lesion type, unspecified whether [place] or transplanted heart Expected: 04/15/2022 (Approximate), Expires: 04/16/2023 [facility] Work Phone: Comment on above: Expected: 04/15/2022 (Approximate), Expires: 04/16/2023 Start: 04-15-2022 End: 04-16-2023 Magnesium [Mass/volume] in Serum or Plasma Magnesium Lab Routine Benign essential hypertension Expected: 04/15/2022 (Approximate), Expires: 04/16/2023 [facility] Work Phone: Comment on above: Expected: 04/15/2022 (Approximate), Expires: 04/16/2023 Start: 03-22-2022 COVID-19 Vaccine (6 - Moderna series) COVID-19 Vaccine (6 - Moderna series) [facility] Start: 03-12-2022 CAROTID, Provider: [facility], Status: Pen, Time: 2:00 PM CAROTID, Provider: [facility], Status: Pen, Time: 2:00 PM YK-Uogwgwrkrb-Cvty na 140 [place] Work Phone: Start: 03-12-2022 ECHO, Provider: MEDI NA [facility] C[facility], Status: Pen, Time: 1:00 PM ECHO, Provider: [place] [facility], Status: Pen, Time: 1:00 PM YJ-Llnrzmpoqp-Unil na 140 [place] Work Phone: Start: 03-12-2022 FUV, Provider: Apple Beth, Status: Pen, Time: 11:30 AM FUV, Provider: Apple Beth, Status: Pen, Time: 11:30 AM [facility] Work Phone: Start: 03-12-2022 CAROTID, Provider: [facility], Status: Pen, Time: 10:00 AM CAROTID, Provider: [facility], Status: Pen, Time: 10:00 AM [facility] Work Phone: Start: 03-12-2022 ECHO, Provider: MEDI NA [facility], Status: Pen, Time: 9:00 AM ECHO, Provider: [place] [facility], Status: Pen, Time: 9:00 AM [facility] Work Phone: Start: 10-21-2021 FUV, Provider: Christ Gardiner, Status: Pen, Time: 2:00 PM FUV, Provider: Christ Gardiner, Status: Pen, Time: 2:00 PM [facility] Work Phone: Start: 08-14-2021 EPV, Provider: Apple Beth, Status: Pen, Time: 1:00 PM EPV, Provider: Apple Beth, Status: Pen, Time: 1:00 PM SC-Ftkgpprlqk-Fajn a Work Phone: Start: 06-21-2021 Diabetes mellitus screening Diabetes Screening [facility] Start: 04-11-2021 Patient encounter procedure HE-Jjudtzlzfi-Warw na Work Phone: Start: 04-05-2021 FUV, Provider: Apple Beth, Status: Pen, Time: 11:30 AM FUV, Provider: Apple Beth, Status: Pen, Time: 11:30 AM XM-Rvhgtupmod-Bdzp na Work Phone: Start: 04-04-2021 ECHO, Provider: MEDI NA [facility], Status: Pen, Time: 1:00 PM ECHO, Provider: [place] [facility], Status: Pen, Time: 1:00 PM [facility] Work Phone: Start: 03-18-2021 Patient encounter procedure MCRANNUAL, Provider: Christ Gardiner, Status: Pen, Time: 10:40 AM [facility] Work Phone: Start: 03-08-2021 FUV, Provider: Apple Beth, Status: Pen, Time: 2:30 PM FUV, Provider: Apple Beth, Status: Pen, Time: 2:30 PM [facility] Work Phone: Start: 02-25-2021 EPV, Provider: Apple Beth, Status: Pen, Time: 1:30 PM EPV, Provider: Apple Beth, Status: Pen, Time: 1:30 PM [facility] Work Phone: Start: 12-25-2020 FUV, Provider: Christ Gardiner, Status: Pen, Time: 1:50 PM FUV, Provider: Christ Gardiner, Status: Pen, Time: 1:50 PM [facility] Work Phone: Start: 10-29-2020 FUVHOSP, Provider: Christ Chamberlain, Status: Pen, Time: 7:50 AM FUVHOSP, Provider: Christ Gardiner, Status: Pen, Time: 7:50 AM [facility] Work Phone: Start: 09-10-2020 FUV, Provider: Christ Gardiner, Status: Pen, Time: 10:00 AM FUV, Provider: Christ Gardiner, Status: Pen, Time: 10:00 AM [facility] Work Phone: Start: 03-07-2020 Screening for osteoporosis Bone Density Scan [facility] Start: 12-01-2018 Culture bacterial quanttative colony count urine Cult, Urine [facility] Work Phone: Start: 07-21-2018 Zoster Vaccines (2 of 2) Zoste r Vaccines (2 of 2) [facility] Start: 08-04-2013 DTaP/Tdap/Td Vaccine s (2 - Td or Tdap) DTaP/Tdap/Td Vaccines (2 - Td or Tdap) [facility] Start: 1986 Zoster Vaccines (1 of 2) Zoste r Vaccines (1 of 2) [facility] Start: 1948 Depression Screening Depression Scre ening [facility] Start: 1935 Medicare Annual Well ness (AWV) Medicare Annual Wellness (AWV) [facility] Start: 1935 Screening for osteoporosis Bone Density Scan [facility] Start: 1935 Thyroid stimulating hormone measurement TSH Level [facility] Acid fast bacilli culture [facility] Acid fast bacilli culture [facility] Acid fast bacilli culture [facility] End: 10-10-2022 Bacteria identified in Lower respiratory specimen by Aerobe culture Respiratory culture and Stain Microbiology Routine Once (Lab) for 1 Occurrences starting 10/10/2022 until 10/10/2022 [facility] Work Phone: Comment on above: Once (Lab) for 1 Occ urrences starting 10/10/2022 until 10/10/2022 Basic metabolic 1998 panel - Serum or Plasma Basic Metabolic Panel [facility] Work Phone: Comment on above: Approx [id number] Bilirubin measuremen t, urine [facility] Hematocrit [Volume Fraction] of Blood [facility] Hemoglobin [Mass/vol ume] in Blood [facility] Hemoglobin [Presence ] in Urine [facility] Measurement of keton es in urine using dipstick [facility] Microscopic urinalysis [facility] Mycobacterium sp identified in Unspecified specimen by Organism specific culture [facility] Mycobacterium sp identified in Unspecified specimen by Organism specific culture [facility] Mycobacterium sp identified in Unspecified specimen by Organism specific culture [facility] Patient Education ED Confusion [facility] Work Phone: Patient referral [facility] Work Phone: pH of Urine [facility] Specific gravity of Urine [facility] Urine blood test [facility] Urine culture [facility] Urine dipstick for glucose [facility] Urine dipstick for leukocyte esterase [facility] Urine dipstick for nitrite [facility] Urine dipstick for protein [facility] Urine examination [facility] Urine microscopy: epithelial cells [facility] Urine Microscopy: wh ite cells [facility] Urobilinogen [Presen ce] in Urine [facility] Work Phone: NEGATED: Highlighted row has been ruled out! Planned Goals not documented [facility] Work Phone: Immunizations Immunization Date Immunization Notes Care Provider Maria D sanchez 01-25-2022 Moderna COVID-19 Biv al Booster 50 MCG/0.5ML Intramuscular Suspension Christ Gardiner Work Phone: UU-Czxrsugxkx-Kmjgl awn [address] [place] Work Phone: 11-23-2021 Fluzone High-Dose Quadrivalent 0.7 ML Intramuscular Suspension Prefilled Syringe Christ Gardiner Work Phone: IT-Niksimhwhm-Nngpo awn [address] [place] Work Phone: 11-23-2021 influenza virus vaccine, unspecified formulation Christ Gardiner DO Work Phone: [facility] Work Phone: 05-31-2021 Moderna COVID-19 Vaccine 100 MCG/0.5ML Intramuscular Suspension Christ Gardiner Work Phone: [facility] 12-25-2020 Fluzone High-Dose Quadrivalent 0.7 ML Intramuscular Suspension Prefilled Syringe; Translations: [Fluzone High-Dose Quadrivalent 0.7 ML Intramuscular Suspension Prefilled Syringe] Christ Gardiner Work Phone: [facility] Work Phone: Comment on above: Series: 12-25-2020 influenza, seasonal, injectable Christ Gardiner DO Work Phone: [facility] Work Phone: 12-16-2020 Moderna COVID-19 Vaccine 100 MCG/0.5ML Intramuscular Suspension Christ Gardiner Work Phone: [facility] 07-30-2020 Moderna SARS-CoV-2 Vaccination Christ Gardiner DO Work Phone: [facility] Work Phone: 04-25-2020 Moderna COVID-19 Vaccine 100 MCG/0.5ML Intramuscular Suspension Christ Gardiner Work Phone: [facility] Work Phone: 2020 Moderna COVID-19 Vaccine 100 MCG/0.5ML Intramuscular Suspension Christ Gardiner Work Phone: [facility] 10-27-2019 Fluzone High-Dose Quadrivalent 0.7 ML Intramuscular Suspension Prefilled Syringe Christ Gardiner Work Phone: [facility] Work Phone: 10-11-2019 influenza, high dose seasonal, preservative-free Christ Gardiner [facility] Work Phone: Comment on above: Series: 11-30-2018 influenza, high dose seasonal, preservative-free; Translations: [Fluzone High-Dose 0.5 ML Intramuscular Suspension Prefilled Syringe] [facility] Work Phone: Comment on above: Series: 05-26-2018 zoster vaccine recombinant; Translations: [Shingrix 50 MCG/0.5ML Intramuscular Suspension Reconstituted] [facility] Work Phone: 11-06-2017 influenza, injectabl e, quadrivalent, contains preservative [facility] Work Phone: Comment on above: Series: 10-12-2017 influenza, high dose seasonal, preservative-free; Translations: [Influenza, high dose seasonal, preservative-free] [facility] Comment on above: Series: 10-12-2017 pneumococcal conjuga te vaccine, 13 valent; Translations: [Prevnar 13 Intramuscular Suspension] [facility] Comment on above: Series: 10-01-2016 influenza, injectabl e, quadrivalent, contains preservative; Translations: [Flulaval Quadrivalent Intramuscular Suspension] [facility] Work Phone: Comment on above: Series: 11-06-2015 influenza, high dose seasonal, preservative-free Christ Gardiner Work Phone: [facility] Work Phone: 10-11-2015 influenza virus vaccine, unspecified formulation Christ Gardiner Work Phone: [facility] Work Phone: Comment on above: Series: 10-11-2015 influenza, seasonal, injectable Benjy Cabralohar [facility] Work Phone: 11-16-2014 influenza, seasonal, injectable [facility]en[facility] Cabralohar [facility] Work Phone: Comment on above: Series: 11-08-2013 influenza, seasonal, injectable [facility] Work Phone: Comment on above: Series: 07-07-2013 tetanus toxoid, redu florian diphtheria toxoid, and acellular pertussis vaccine, adsorbed [facility] Work Phone: Comment on above: Series: 10-12-2012 influenza, seasonal, injectable Christ Adorno Nostran Work Phone: [facility] Work Phone: Comment on above: Series: 10-12-2012 influenza, seasonal, injectable [facility] Inc[facility] Cabralohar [facility] Work Phone: 10-24-2011 influenza, seasonal, injectable [facility] Work Phone: Comment on above: Series: 11-14-2008 influenza virus vaccine, unspecified formulation Christ Adorno Nostran Work Phone: [facility] Work Phone: Comment on above: Series: 11-14-2008 pneumococcal polysaccharide vaccine, 23 valent Christ Bray Van Nostran Work Phone: [facility] Work Phone: Comment on above: Series: 11-14-2008 influenza, seasonal, injectable [facility] Work Phone: 11-14-2008 pneumococcal polysaccharide vaccine, 23 valent [facility] Work Phone: Payers Date Payer Category Payer Unknown [id number] 2023 Self-pay 2023 Unknown [id number] 2023 Unknown [id number] 2008 Unknown 2008 Unknown [id number] 2002 Medicare [id number]. [id number] 2001 Medicare [id number] 2001 Medicare [id number] 1936 Unknown [id number] 2.16. 840.1.229651.3.579.2.356 1936 Unknown [id number] 2.16 840.1.005105.3.579.2.356 1936 Unknown [id number] 2.16. 840.1.867846.3.579.2.356 1936 Unknown [id number] 2.16. 840.1.608397.3.579.2.356 1936 Unknown [id number] 2.16. 840.1.460454.3.579.2.356 1936 Unknown [id number] 2.16. 840.1.264443.3.579.2.356 1936 Unknown [id number] 2.16. 840.1.253343.3.579.2.356 1936 Unknown [id number] 2.16. 840.1.178582.3.579.2.356 1936 Unknown [id number] 2.16. 840.1.519849.3.579.2.356 1936 Unknown [id number] 2.16. 840.1.701700.3.579.2.356 1936 Unknown [id number] 2.16. 840.1.378079.3.579.2.356 1936 Unknown [id number] 2.16. 840.1.298769.3.579.2.356 1936 Unknown [id number] 2.16. 840.1.527237.3.579.2.356 1936 Unknown [id number] 2.16. 840.1.201198.3.579.2.356 1936 Unknown [id number] 2.16.840 .1.915942.3.579.2.1245 1936 Unknown [id number] 2.16.8 40.1.099850.3.579.2.1046 1936 Unknown [id number] 2.16. 840.1.636046.3.579.2.356 1936 Unknown [id number] 2.16. 840.1.221145.3.579.2.356 1936 Unknown [id number] 2.16. 840.1.649439.3.579.2.356 1936 Unknown [id number] 2.16. 840.1.954793.3.579.2.356 1936 Unknown [id number] 2.16. 840.1.229369.3.579.2.356 1936 Unknown [id number] 2.16. 840.1.049304.3.579.2.356 1936 Unknown [id number] 2.16. 840.1.704205.3.579.2.356 1936 Unknown [id number] 2.16.8 40.1.334699.3.579.2.1244 1936 Unknown [id number] 2.16.84 0.1.019150.3.579.2.1244 1936 Unknown [id number] 2.16.84 0.1.519864.3.579.2.1244 1936 Unknown [id number] 2.16.84 0.1.779697.3.579.2.1244 1936 Unknown [id number] 2.16.840 .1.556675.3.579.2.1244 Unknown [id number] 2.16.8 40.1.211606.3.579.2.243 Unknown [id number] Unknown [id number] 2.16.8 40.1.928561.3.579.2.462 Unknown [id number] 2.16.8 40.1.132252.3.579.2.462 Unknown [id number] 2.16.8 40.1.601623.3.579.2.462 Unknown [id number] 2.16.8 40.1.004765.3.579.2.462 Unknown [id number] 2.16.8 40.1.440182.3.579.2.462 Unknown [id number] 2.16.8 40.1.837738.3.579.2.462 Unknown [id number] 2.16.8 40.1.628997.3.579.2.462 Unknown [id number] 2.16.8 40.1.160353.3.579.2.462 Unknown [id number] 2.16.8 40.1.798730.3.579.2.462 Unknown [id number] 2.16.8 40.1.442747.3.579.2.462 Unknown [id number] 2.16.8 40.1.402439.3.579.2.462 Unknown [id number] 2.16.8 40.1.071066.3.579.2.462 Unknown [id number] 2.16.8 40.1.035719.3.579.2.462 Unknown [id number] 2.16.8 40.1.592422.3.579.2.462 Unknown [id number] 2.16.8 40.1.203688.3.579.2.462 Unknown [id number] 2.16.8 40.1.574600.3.579.2.462 Unknown [id number] 2.16.8 40.1.994070.3.579.2.462 Unknown [id number] 2.16.8 40.1.050711.3.579.2.462 Unknown [id number] 2.16.8 40.1.564038.3.579.2.462 Unknown [id number] 2.16.8 40.1.518864.3.579.2.462 Unknown [id number] 2.16.8 40.1.201435.3.579.2.462 Unknown [id number] 2.16.8 40.1.556428.3.579.2.462 Unknown [id number] 2.16.8 40.1.643531.3.579.2.462 Unknown [id number] 2.16.8 40.1.634386.3.579.2.462 Unknown [id number] 2.16.8 40.1.333531.3.579.2.462 Unknown [id number] 2.16.8 40.1.759908.3.579.2.462 Unknown [id number] 2.16.8 40.1.500068.3.579.2.462 Unknown [id number] 2.16.8 40.1.611871.3.579.2.462 Unknown [id number] 2.16.8 40.1.263475.3.579.2.462 Unknown [id number] 2.16.8 40.1.751454.3.579.2.462 Unknown [id number] 2.16.8 40.1.218530.3.579.2.462 Unknown [id number] 2.16.8 40.1.031808.3.579.2.462 Unknown [id number] 2.16.8 40.1.847702.3.579.2.462 Unknown [id number] 2.16.8 40.1.969164.3.579.2.462 Unknown [id number] 2.16.8 40.1.860803.3.579.2.462 Unknown [id number] 2.16.8 40.1.162184.3.579.2.462 Unknown [id number] 2.16.8 40.1.622475.3.579.2.462 Unknown [id number] 2.16.8 40.1.358539.3.579.2.462 Unknown [id number] 2.16.8 40.1.021515.3.579.2.462 Unknown [id number] 2.16.8 40.1.407291.3.579.2.462 Social History Date Type Detail Facility - Never smoker [facility] Work Phone: Start: 04-15-2022 End: 05-30-2022 Caffeine Use Caffeine Use [facility] Start: 04-15-2022 End: 08-02-2024 Tobacco smoking status NHIS Never smoked tobacco [facility] Work Phone: Start: 04-15-2022 Tobacco use and exposure Smoke less tobacco non-user [facility] Work Phone: Start: 04-15-2022 End: 05-30-2022 Alcohol intake Ex-drinker (finding) [facility] Work Phone: Start: 04-15-2022 End: 05-30-2022 Tobacco use panel [facility] Start: 1935 Sex Assigned At Not on file [facility] Work Phone: Start: 04-05-2022 End: 10-10-2022 Exposure to SARS-CoV-2 (event) Not sure [facility] Start: 10-14-2022 Alcohol intake Lifetime non-drinker (finding) [facility] In the past 12 month s, has lack of transportation kept you from medical appointments or from getting medications? No [facility] In the past 12 month s, was there a time when you were not able to pay the mortgage or rent on time? No [facility] Start: 10-30-2022 End: 11-06-2022 Tobacco smoking status IDIS Unknown if ever smoked [facility] Start: 1935 Sex Assigned At Female [facility] Start: 11-02-2022 Non-smoker [facility] Start: 05-12-2024 Sex Female (finding) [facility] Start: 07-25-2024 Tobacco smoking stat us IDIS Ex-smoker (finding) [facility] NEGATED: Highlighted rowStart: NINF History of tobacco use Passive smoker [facility] Work Phone: NEGATED: Highlighted row Not [facility] Medical Equipment Procedure Code Equipment Code Equipment Original Text Equipment Identifier Dates Insertion, intramedullary kaleb, femur, using titanium trochanteric fixation nail syste Locking screw for IM nail [id number] FDA Start: 07-26-2024 Insertion, intramedullary kaleb, femur, using titanium trochanteric fixation nail syste Femur nail, sterile ()[id number] FDA Start: 07-26-2024 Insertion, intramedullary kaleb, femur, using titanium trochanteric fixation nail syste ([id number]) Spiral blade [id number] FDA Start: 07-26-2024 Insertion, intramedullary kaleb, femur, [...] 08-05-2024 Functional status Chair;Bedside Commode;Back to bed [facility] Work Phone: 07-28-2024 Functional status Chair [facility] Work Phone: 11-02-2022 Functional status Bedrest [facility] Work Phone: NEGATED: Highlighted row Functional performance Functional status health issues are not documented Disease [facility] Work Phone: Mental Status Date Assessment Result Facility 08-05-2024 Cognitive function Touch/Shaking [facility] Work Phone: 08-04-2024 Cognitive function Appropriate;C ooperati ve;Talkative [facility] Work Phone: 08-02-2024 Cognitive function Voice/Name [facility] Work Phone: 07-28-2024 Cognitive function Voice/Name [facility] Work Phone: 11-06-2022 Cognitive function Appropriate;C ooperati ve [facility] Work Phone: 11-02-2022 Cognitive function Voice/Name [facility] Work Phone: 10-30-2022 Cognitive function Voice/Name [facility] Work Phone: NEGATED: Highlighted row Cognitive function [Interpretation] Cognitive status health issues are not documented Disease [facility] Work Phone: Clinical Notes 06-09-2013 to 08-05-2024 Note Date & Type Note Facility 08-05-2024 Consult note [facility] 08-05-2024 Hospital Discharg e instructions Additional Instructions Date of Discharge: 08/05/24 [facility] Work Phone: 08-05-2024 Discharge summary Note Date/Time August 05, 2024 11:56am [facility] Medical Records Department [address] [place] [address] Discharge Summary 08/05/24 1149 MR#: [id number] Acct: [id number] Name: KATHERINE JUDGE Rep #:[id number] : 1935 89 From: Neymar Herrera PCP: Dr. Kam Ocampo Sr., Status:A DM IN Location: [facility] [id number] Providers Date of Admission: 08/02/24 Date of Discharge: 08/05/24 Primary Care Physician: Dr. Kam Ocampo Sr., DO Consultations 08/02/24 18:50 Consult: Gastroenterology Routine Consulting Provider: [facility] Reason for Consult: GI bleed EMERGENT Consult: No MD Notified: Yes Date Notified: 08/03/24 Time Notified: 06:09 Method of Notification: Text Reason For Visit: ANEMIA, GI BLEED Diagnosis Discharge Diagnosis (1) GI bleed: Status: Acute Code(s): K92.2 - Gastrointestinal hemorrhage, unspecified (2) Anemia: Status: Acute Code(s): D64.9 - Anemia, unspecified Plan Patient is an 89-year-old female who presented to [facility] ED on 08/02/2024 with altered mentation and [...] nail placement on 07/26. Patient discharged to [facility] and suspect she will need SNF placement [...] CCA, DNI Expected disposition: Likely back to care home, TBD Microbiology Past 72 Hours 08/02/24 14:55 [...] in before D/C Order can be placed): Fdc Facility 08/05/24 1156 <Electronically signed by Neymar Cunningham MD> Cosigner Signature (if applicable): CC: Dr. Kam Ocampo Sr., ; Dr. Neymar Cunningham MD~ Signed [facility] Work Phone: 1(126) 537-204406-27-2025 Discharge summary Author Neymar Cunningham [facility] Note Date/Time August 05, 2024 11:[address] [facility] Medical Records Department [address] [place] [address] Transfer to [facility] MR#: [id number] Acct: [id number] Name: KATHERINE JUDGE Rep #:[id number] : 1935 89 From: Neymar Herrera PCP: Dr. Kam Ocampo Sr., DO Status:A DM IN Certification of patient admission REQUIRED AT TIME OF ADMISSION. I CERTIFY THAT POST-HOSPITAL F SERVICES ARE REQUIRED TO BE GIVEN ON AN IN-PATIENT BASIS BECAUSE OF THE ABOVE NAMED PATIENT'S NEED FOR GROUP HOME CARE ON A CONTINUING BASIS FOR THE CONDITION(S) FOR WHICH HE/SHE WAS RECEIVING IN-PATIENT HOSPITAL SERVICES PRIOR TO HIS/HER TRANSFER TO [facility]. 08/05/24 1147<Electronically signed by Neymar Cunningham [...] is an 89-year-old female who presented to [facility] ED on 08/02/2024 with altered mentation and [...] nail placement on 07/26. Patient discharged to [facility] and suspect she will need SNF placement [...] CCA, DNI Expected disposition: Likely back to care home, TBD Microbiology Past 72 Hours 08/02/24 14:55 [...] in before D/C Order can be placed): Fdc Facility 08/05/24 1147 <Electronically signed by Neymar Cunningham MD> Cosigner Signature (if applicable): CC: Dr. Hayden Diaz, ; Dr. Kam Ocampo Sr., ; Dr. Janine Harrison MD~ [facility] Work Phone: 1(362) 688-719006-27-2025 Discharge summary [facility] Medical Records Department [address] [place] [address] Discharge Summary 08/05/24 1149 MR#: [id number] Acct: [id number] Name: KATHERINE JUDGE Wilber Rep #:[id number] : 1935 89 From: Neymar Herrera PCP: Dr. Kam Ocampo Sr., DO Status:A DM IN [id number] Prov[facility] Date of Admission: 08/02/24 Date of Discharge: 08/05/24 Primary Care Physician: Dr. Kam Ocampo Sr., DO Consultations 08/02/24 18:50 Consult: Gastroenterology Routine Consulting Provider: [facility] Reason for Consult: GI bleed EMERGENT Consult: No MD Notified: Yes Date Notified: 08/03/24 Time Notified: 06:09 Method of Notification: Text Reason For Visit: ANEMIA, GI BLEED Diagnosis Discharge Diagnosis (1) GI bleed: Status: Acute Code(s): K92.2 - Gastrointestinal hemorrhage, unspecified (2) Anemia: Status: Acute Code(s): D64.9 - Anemia, unspecified Plan Patient is an 89-year-old female who presented to [facility] ED on 08/02/2024 with altered mentation and [...] nail placement on 07/26. Patient discharged to [facility] home and suspect she will need SNF [...] CCA, DNI Expected disposition: Likely back to care home, TBD Microbiology Past 72 Hours 08/02/24 14:55 [...] Attending Provider: Neymar Cunningham Primary Care Provider: Aline Ocampo Sr.n Consulting Providers: Janine Harrison; Hayden Diaz Discharge [...] in before D/C Order can be placed): Fdc Facility 08/05/24 1156 Cosigner Signature (if applicable): CC: Dr. Kam Ocampo Sr., DO; Dr. Neymar Cunningham MD~ Signed [facility]06-27-2025 [facility]06-27-2025 Discharge summary [facility] Medical Records Department [address] [place] [address] Transfer to [facility] MR#: [id number] Acct: [id number] Name: KATHERINE JUDGE Rep #:[id number] : 1935 89 From: Neymar Herrera PCP: Dr. Kam Ocampo Sr., DO Status:A DM IN Certification of patient admission REQUIRED AT TIME OF ADMISSION. I CERTIFY THAT POST-HOSPITAL ECF SERVICES ARE REQUIRED TO BE GIVEN ON AN IN-PATIENT BASIS BECAUSE OF THE ABOVE NAMED PATIENT'S NEED FOR GROUP HOME CARE ON A CONTINUING BASIS FOR THE [...] is an 89-year-old female who presented to [facility] ED on 08/02/2024 with altered mentation and [...] nail placement on 07/26. Patient discharged to [facility] and suspect she will need SNF placement [...] CCA, DNI Expected disposition: Likely back to care home, TBD Microbiology Past 72 Hours 08/02/24 14:55 [...] Provider: Neymar Cunningham Primary Care Provider: Terrence AddisonKam Consulting Providers: Janine Harrison; Hayden Diaz Discharge [...] in before D/C Order can be placed): [facility] Facility 08/05/24 1147 Cosigner Signature (if applicable): CC: Dr. Hayden Diaz DO; Dr. Kam Ocampo Sr., DO; Dr. Janine Harrison MD~ [facility]06-27-2025 Progress note Author Yue Velásquez [facility] Note Date/Time August 04, 2024 10:3 1pm [facility] Medical Records Department [address] [place] [address] Progress Note - Hospitalist 08/04/240 MR#: [id number] Acct: [id number] Name: KATHERINE JUDGE Rep #:[id number] : 1935 89 From: Yue Velásqeuz MD PCP: Dr. Kam Ocampo Sr., DO Status:A DM IN Location: MS3 HN482-2 Hospitalist Note Patient pulled out her IV access. Currently on regular diet. RN notes planned D/C likely in AM. Will change IV PPI to oral regimen. 08/04/242230 <Electronically signed by Yue Velásquez MD> Cosigner Signature (if applicable): CC: ~ Signed [facility] Work Phone: 1(572) 272-262906-26-2025 Progress note [facility] Medical Records Department [address] [place] [address] Progress Note - Hospitalist 08/04/242229 MR#: [id number] Acct: [id number] Name: KATHERINE JUDGE Wilber Rep #:[id number] : 1935 89 From: Yue Velásquez MD PCP: Dr. Kam Ocampo Sr., DO Status:A DM IN Location: [place] [address] Hospitalist Note Patient pulled out her IV access. Currently on regular diet. RN notes planned D/C likely in AM. Will change IV PPI to oral regimen. 08/04/242230 Cosigner Signature (if applicable): CC: ~ Signed [facility]06-26-2025 Consult note Author Nilsa [facility] Note Date/Time August 05, 2024 4:05 pm [facility] Medical Records Department [address] [place] [address] Anesthesia Postop Eval II 08/04/24 1802 MR#: [id number] Acct: [id number] Name: KATHERINE JUDGE Wilber Rep #:[id number] : 1935 89 From: Nilsa Alexandra CRNA PCP: Dr. Kam Ocampo Sr., DO Status:A DM IN Y Race: C Location: [place] [address] Anesthesia Postop Eval I Sum Postop Eval Completion status Anesthesia document: Postop Eval 1 completed: Yes Anesthesia Postop Eval I Summary Anesthesia Postop Eval I Summary: Anesthesia Postop Eval I: Assessment Summary Airway patent Yes 08/04/24 16:41 LOCKER ROOM ATTENDANT.MDOT Spontaneous unlabored Yes 08/04/24 16:41 LOCKER ROOM ATTENDANT.MDMICHA respirations Mental status Awake,Calm 08/04/24 16:41 LOCKER ROOM ATTENDANT.MDOT nausea No 08/04/24 16:41 LOCKER ROOM ATTENDANT.MDOT Vomiting No 08/04/24 16:41 LOCKER ROOM ATTENDANT.MDOT Anesthesia Postop Eval I: Fluid Summary Crystalloid volume administer 100 08/04/24 16:41 LOCKER ROOM ATTENDANT.MDOT (ml) Colloids volume administered ( ml) Blood Product volume administered (ml) Total IV fluid infused 100 08/04/24 16:41 LOCKER ROOM ATTENDANT.ERICKA Anesthesia Postop Eval I: Summary Notes Anesthesia Complication No 08/04/24 16:41 LOCKER ROOM ATTENDANT.ERICKA Anesthesia Complication Comment: Post-operative progress note Anesthesia: Postop Eval II Evaluation Mental status: Awake Pain Level: 0 nausea: No Vomiting: No 08/04/24 180 <Electronically signed by Nilsa gaona CRNA> Date _ Nilsa Alexandra CRNA Cosigner Signature: Date CC: ~ Signed [facility] Work Phone: 1(195) 135-200206-26-2025 Consult note Author Jose [facility] Note Date/Time August 04, 2024 4:41 pm [facility] Medical Records Department [address] [place] [address] Anesthesia Postop Eval I 08/04/24 1641 MR#: [id number] Acct: [id number] Name: DERICKKATHERINE Wilber Rep #:[id number] : 1935 89 From: Jose NELSON PCP: Dr. Kam Ocampo SrLeigh, DO Status:A DM IN Y Race: C Location: [address] Anesthesia: Postop Eval I Current Vital [...] CRNA Cosigner Signature: Date CC: ~ Signed [facility] Work Phone: 1(135) 614-520606-26-2025 Progress note Author Neymar Cunningham [facility] Note Date/Time August 04, 2024 4:41 pm [facility] Medical Records Department [address] [place] [address] Progress Note - Hospitalist 08/04/24 1636 MR#: [id number] Acct: [id number] Name: KATHERINE JUDGE Rep #:[id number] : 1935 89 From: Neymar Herrera PCP: Dr. Kam Ocampo Sr., DO Status:A DM IN Location: [address] Reason for Visit Reason for Visit: [...] Minimal intrahepatic biliary ductal dilatation. Reading Location: [id number] Brain CT 08/03/24 11:10 IMPRESSION: NO ACUTE INTRACRANIAL HEMORRHAGE Chronic changes. Reading Location: [facility] Pelvis CT 08/03/24 11:10 IMPRESSION: Status post right intertrochanteric fracture reduction with compression screw and kaleb fixation device. Postoperative soft tissue changes. No evidence of localized hematoma. Reading Location: [id number] Physical Exam Narrative Seen and examined. Patient [...] is an 89-year-old female who presented to [facility] ED on 08/02/2024 with altered mentation and [...] nail placement on 07/26. Patient discharged to [facility] and suspect she will need SNF placement [...] CCA, DNI Expected disposition: Likely back to care home, TBD Microbiology Past 72 Hours 08/02/24 14:55 [...] TSH 1.990 Charges/Coding Visit Charges Inpatient E&M: 34237 Subs Hosp L2 08/04/24 1641 <Electronically signed by Neymar Cunningham MD> Cosigner Signature (if applicable): CC: ~ Signed [facility] Work Phone: 1(110) 557-594806-26-2025 Progress note Author Nomi Kee [facility] Note Date/Time August 04, 2024 4:[address] [facility] Medical Records Department [address] [place] [address] Progress Note 08/04/24 1611 MR#: [id number] Acct: [id number] Name: KATHERINE JUDGE Wilber Rep #:[id number] : 1935 89 From: Nomi Kee DO PCP: Dr. Kam Ocampo Sr., DO Status:A DM IN Location: [place] [address] Progress Note Patient has been n.p.o. for [...] an upper endoscopy. The patient's power of estate attorney her son was explained alternatives, risk and benefits include not withstanding bleeding, infection, sepsis, perforation, need for surgery . She will have an ASA 3. Visit Charges Inpatient E&M: 31029 Subs Hosp L3 08/04/24 1613 <Electronically signed by Nomi Kee DO> Nomi Kee DO Cosigner Signature (if applicable): CC: ~ Signed [facility] Work Phone: 1(165) 651-908906-26-2025 Consult note Author Jose Krueger [facility] Note Date/Time August 04, 2024 4:01 pm [facility] Medical Records Department [address] [place] [address] Pre-Anesthesia Evaluation 08/04/24 1553 MR#: [id number] Acct: [id number] Name: KATHERINE JUDGE Rep #:[id number] : 1935 89 From: Jose NELSON PCP: Dr. Kam Ocampo Sr., DO Status:A DM IN Y Race: C Location: [place] [address] ASA Classification* ASA Classification ASA Classification: 3 [...] 05:08/04/24 Hgb 11.0 g/dL (12.0-15.0) L 08/04/24 05:28 5 Hct 32.0 % (37-47) L 08/04/24 05:08/04/24 Plt Count 286 K/mm3 (150-450) 08/04/24 05:08/04/24 CHEMISTRY Potassium 3.4 mmol/L (3.3-5.1) 08/04/24 05:08/04/24 Sodium 143 mmol/L (133-145) 08/04/24 05:08/04/24 Phosphorus 3.6 mg/dL (2.5-4.9) 09/02/23 05:02 09/02/23 BUN 12 mg/dL (4-19) 08/04/24 05:08/04/24 Creatinine 0.74 mg/dL (0.70-1.20) 08/04/24 05:28 08/04/24 Glucose 98 mg/dL (70-99) 08/04/24 05:08/04/24 POC Glucose 106 mg/dL (74-106) 08/03/24 10:31 08/03/24 TSH 1.990 uIU/mL (0.300-4.200) 08/04/24 05:07/11 COAG PT 14.1 SECONDS (11.7-14.9) 08/04/24 05: Pre-Assessment Diagnosis/Proposed Procedure Planned Operative Procedure(s): EGD, possible cautery Anesthesia History Anesthesia History - solid waste technician: Anesthesia History - solid waste technician Hx Hospitalization Any Problems With Anesthesia No [...] take am of surgery PONV PONV - solid waste technician: PONV - solid waste technician Female HX of Motion Sickness HX of N/V After Surgery Non-Smoker Duration of Surgery greater than 60 minutes Number of Risk Factors PONV Score Height & Weight Height & Weight: Anesthesia: Height & Weight Height 5 ft 08/04/24 15:25 Weight: 51.7 kg 08/04/24 15:25 Body Mass Index (BMI) 22.2 08/04/24 15:25 Respiratory Assessment Respiratory Assessment - solid waste technician: Respiratory Tract Infection Hx - solid waste technician Hx Respiratory Tract Infection No 08/04/24 15:15 STOP Sleep Apnea STOP Sleep Apnea - solid waste technician: STOP Sleep Apnea - solid waste technician Hx Hypertension Yes 08/03/24 12:16 Hx Sleep [...] Tobacco Use History Tobacco Use History - solid waste technician: Tobacco Use History - solid waste technician Tobacco Use Non-smoker 11/02/22 12:18 Smoking Status Never smoker 08/02/24 13:06 Hx Tobacco Use No 10/30/22 22:55 Years Smoking Packs Smoked per Day Smoking Cessation Date was within the last 15 years Hx Smoking Cessation Date Hx Smoking Cessation Counseling Hematologic Medial History Hematologic Hx - solid waste technician: Hematologic Medical Hx - documentation coordinator Hx of Blood Transfusion Hx of Transfusion in last 3 Months Date of Last Transfusion (if within last 3 months) Ever experience any problems with transfusion(s)? Specify any problems Hx of Preganancy in last 3 Months Nurse Filling Out Transfusion & Questions: Date: Time: Patient unable to answer at this time (ie. confused, unrespo /Reproduction History /Reproductive History - solid waste technician: /Reproductive Hx- solid waste technician Hx Now No 08/04/24 15:15 Gestational Age [...] DAILY HUMBERTO Administration Cholecalciferol 125 mcg 08/03/24 10:08/04/24 08:15 Cholecalciferol (Vit D3) 125 Mcg Capsule [...] mls @ 15 mls/hr 08/03/24 18:51 IV .[id number] PRN Saline Flush Sodium Chloride 250 mls @ 15 mls/hr 08/03/24 18:51 IV .[id number] PRN Additional IVPB Infusion Lactated Ringer's 1,000 [...] gangrene Constipation, unspecified Atherosclerotic heart disease of [place] coronary artery without angina pectoris Other specified [...] spray budesonide 0.5 mg/2 mL suspension mg copy writer 07/25/24 Unkn own History for nebulization bupropion [...] Social History (System 08/04/24 @ 11:26 by Stehp Mccollum) Smoking Status: Never smoker Review of Systems (Anesthesia) ROS Narrative System reviewed and no additional complaints, except as documented. Physical Exam Const Orientation / Consciousness: confused Neck full ROM Resp normal respiratory effort 08/04/24 1601 <Electronically signed by Jose Krueger CRNA> Date _ Jose Krueger CRNA Cosigner Signature: Date CC: ~ Signed [facility] Work Phone: 1(209) 576-397706-26-2025 Procedure note [facility] Medical Records Department [address] [facility] [place] [address] EGD Report MR#: [id number] Acct: [id number] Name: KATHERINE JUDGE Rep #:[id number] : 1935 89 From: Nomi Kee DO [...] present medications. Procedure Code(s): --- Professional --- 21650, Small intestinal endoscopy, enteroscopy beyond second portion of duodenum, not including ileum; diagnostic, including collection of specimen(s) by brushing or washing, when performed (separate procedure) CPT copyright 2021 [employer]. All rights reserved. The codes documented in this report are preliminary and upon reservoir engineering consultant review may be revised to meet current compliance requirements. Nomi Kee DO 08/04/2024 4:42:45 PM This report has been signed electronically. Number of Addenda: 0 Note Initiated On: 08/04/2024 4:10 PM 08/04/24 1642 Date _ Nomi Kee DO Cosigner Signature: Date (if indicated) CC: Dr. Kam Ocampo Sr., DO; Nomi Kee DO ~ Date Dictated: 08/04/24 1610 Date Transcribed: Safety Admin Assistant: RF Signed [facility]06-26-2025 Consult note [facility] Medical Records Department [address] [place] [address] Anesthesia Postop Eval I 08/04/24 1641 MR#: [id number] Acct: [id number] Name: KATHERINE JUDGE Rep #:[id number] : 1935 89 From: Jose Espinoza RNA PCP: Dr. Kam Ocampo Sr., DO Status:A DM IN Y Race: C Location: [place] [address] Anesthesia: Postop Eval I Current Vital Signs [...] Postop Eval 1 completed: Yes 08/04/24 1641 LOCKER ROOM ATTENDANT> Date _ Jose Krueger LOCKER ROOM ATTENDANT Cosigner Signature: Date CC: ~ Signed [facility]06-26-2025 Progress note [facility] Medical Records Department [address] [place] [address] Progress Note - Hospitalist 08/04/24 1636 MR#: [id number] Acct: [id number] Name: KATHERINE JUDGE Rep #:[id number] : 1935 89 From: Neymar Herrera PCP: Dr. Kam Ocampo Sr., DO Status:A DM IN Location: [place] [address]-1 Reason for Visit Reason for Visit: Diagnoses [...] Minimal intrahepatic biliary ductal dilatation. Reading Location: [id number] Brain CT 08/03/24 11:10 IMPRESSION: NO ACUTE [...] is an 89-year-old female who presented to [facility] ED on 08/02/2024 with altered mentation and [...] nail placement on 07/26. Patient discharged to [facility] and suspect she will need SNF placement [...] CCA, DNI Expected disposition: Likely back to care home, TBD Microbiology Past 72 Hours 08/02/24 14:55 [...] TSH 1.990 Charges/Coding Visit Charges Inpatient E&M: 98884 Subs Hosp L2 08/04/24 1641 Cosigner Signature (if applicable): CC: ~ Signed [facility]06-26-2025 Progress note [facility] Medical Records Department [address] [place] [address] Progress Note 08/04/24 1611 MR#: [id number] Acct: [id number] Name: KATHERINE JUDGE Rep #:[id number] : 1935 89 From: Nomi Friend DO PCP: Dr. Kam Ocampo Sr., DO Status:A DM IN Location: [place] [address] Progress Note Patient has been n.p.o. for [...] an upper endoscopy. The patient's power of estate attorney her son was explained alternatives, risk and benefits include not withstanding bleeding, infection, sepsis, perforation, need for surgery . She will have an ASA 3. Visit Charges Inpatient E&M: 22288 Subs Hosp L3 08/04/24 1613 Nomi Friend DO Malcolmigntimi Signature (if applicable): CC: ~ Signed [facility]06-26-2025 Consult note [facility] Medical Records Department [address] [place] [address] Pre-Anesthesia Evaluation 08/04/24 1553 MR#: [id number] Acct: [id number] Name: KATHERINE JUDGE Rep #:[id number] : 1935 89 From: Jose NELSON PCP: Dr. Kam Ocampo Sr., DO Status:A DM IN Y Race: C Location: [address] ASA Classification* ASA Classification ASA Classification: 3 [...] 05:02 09/02/23 BUN 12 mg/dL (4-19) 08/04/24 05:28 08/04/24 Creatinine 0.74 mg/dL (0.70-1.20) 08/04/24 05:28 08/04/24 Glucose 98 mg/dL (70-99) 08/04/24 05:28 08/04/24 POC Glucose 106 mg/dL (74-106) 08/03/24 10:31 08/03/24 TSH 1.990 uIU/mL (0.300-4.200) 08/04/24 05:28 07/11 08/03 COAG PT 14.1 SECONDS (11.7-14.9) 08/04/24 05:28 Pre-Assessment Diagnosis/Proposed Procedure Planned Operative Procedure(s): EGD, possible cautery Anesthesia History Anesthesia History - solid waste technician: Anesthesia History - solid waste technician Hx Hospitalization Any Problems With Anesthesia No [...] take am of surgery PONV PONV - solid waste technician: PONV - solid waste technician Female HX of Motion Sickness HX of N/V After Surgery Non-Smoker Duration of Surgery greater than 60 minutes Number of Risk Factors PONV Score Height & Weight Height & Weight: Anesthesia: Height & Weight Height 5 ft 08/04/24 15:25 Weight: 51.7 kg 08/04/24 15:25 Body Mass Index (BMI) 22.2 08/04/24 15:25 Respiratory Assessment Respiratory Assessment - solid waste technician: Respiratory Tract Infection Hx - solid waste technician Hx Respiratory Tract Infection No 08/04/24 15:15 STOP Sleep Apnea STOP Sleep Apnea - solid waste technician: STOP Sleep Apnea - solid waste technician Hx Hypertension Yes 08/03/24 12:16 Hx Sleep [...] Tobacco Use History Tobacco Use History - solid waste technician: Tobacco Use History - solid waste technician Tobacco Use Non-smoker 11/02/22 12:18 Smoking Status Never smoker 08/02/24 13:06 Hx Tobacco Use No 10/30/22 22:55 Years Smoking Packs Smoked per Day Smoking Cessation Date was within the last 15 years Hx Smoking Cessation Date Hx Smoking Cessation Counseling Hematologic Medial History Hematologic Hx - solid waste technician: Hematologic Medical Hx - documentation coordinator Hx of Blood Transfusion Hx of Transfusion in last 3 Months Date of Last Transfusion (if within last 3 months) Ever experience any problems with transfusion(s)? Specify any problems Hx of Preganancy in last 3 Months Nurse Filling Out Transfusion & Questions: Date: Time: Patient unable to answer at this time (ie. confused, unrespo /Reproduction History /Reproductive History - solid waste technician: /Reproductive Hx- solid waste technician Hx Now No 08/04/24 15:15 Gestational Age [...] mls @ 15 mls/hr 08/03/24 18:51 IV .[id number] PRN Saline Flush Sodium Chloride 250 mls @ 15 mls/hr 08/03/24 18:51 IV .[id number] PRN Additional IVPB Infusion Lactated Ringer's 1,000 [...] gangrene Constipation, unspecified Atherosclerotic heart disease of [place] coronary artery without angina pectoris Other specified [...] spray budesonide 0.5 mg/2 mL suspension mg copy writer 07/25/24 Unkn own History for nebulization bupropion [...] ROM Resp normal respiratory effort 08/04/24 1601 LOCKER ROOM ATTENDANT> Date _ Jose Sisiaidetimi LOCKER ROOM ATTENDANT Cosigner Signature: Date CC: ~ Signed [facility]06-25-2025 Progress note Author Hayden Diaz [facility] Note Date/Time August 03, 2024 5:58 pm [facility] Medical Records Department [address] [facility] [place] [address] Progress Note - Hospitalist 08/03/24 1211 MR#: [id number] Acct: [id number] Name: KATHERINE JUGDE Wilber Rep #:[id number] : 1935 89 From: Hayden malik DO PCP: Dr. Kam Ocampo Sr., DO Status:A DM IN Location: [place] [address] Reason for Visit Reason for Visit: Diagnoses [...] % (Auto) 70.8 H, Lymph % (Auto)19.7, [place] % (Auto) 7.2, Eos % (Auto) 1.4, [...] Clarity Clear, Urine pH 7.0, Ur Specific [place] 1.010, Urine Protein Negative, Urine Glucose (UA) [...] % (Auto) 66.5, Lymph % (Auto) 23.1, [place] % (Auto) 8.1, Eos % (Auto) 1.1, [...] Minimal intrahepatic biliary ductal dilatation. Reading Location: [id number]-C Brain CT 08/03/24 11:10 IMPRESSION: NO ACUTE INTRACRANIAL HEMORRHAGE Chronic changes. Reading Location: [id number] Pelvis CT 08/03/24 11:10 IMPRESSION: Status post right intertrochanteric fracture reduction with compression screw and kaleb fixation device. Postoperative soft tissue changes. No evidence of localized hematoma. Reading Location: [facility] Physical Exam Const alert, no apparent distress [...] is an 89-year-old female who presented to [facility] ED on 08/02/2024 with altered mentation and [...] nail placement on 07/26. Patient discharged to [facility] and suspect she will need SNF placement [...] CCA, DNI Expected disposition: Likely back to care home, TBD Total clinical time spent by myself addressing the patient's medical issues, reviewing all the data, and collaborating with patient's care team: 35 minutes. Charges/Coding Visit Charges Inpatient E&M: 52681 Subs Hosp L2 08/03/24 5647 <Electronically signed by Hayden Diaz DO> Cosigner Signature (if applicable): CC: ~ Signed [facility] Work Phone: 1(763) 497-730206-25-2025 Consult note Author Nomi Kee [facility] Note Date/Time August 03, 2024 3:[address] [facility] Medical Records Department [address] [place] [address] Consultation - GI 08/03/24 1537 MR#: [id number] Acct: [id number] Name: KATHERINE JUDGE Rep #:[id number] : 1935 89 From: Nomi Kee DO PCP: Dr. Kam Ocampo Sr., Status:A DM IN Location: [facility] NX491-0 HPI Consult Data Date of Consult: 08/03/24 HPI Narrative Reason for Consultation: Anemia HPI Narrative: KATHERINE JUDGE, is a 89 F who [id number] female with past medical history of TIA/CVA. [...] urinary bladder. Minimal intrahepatic biliary ductal dilatation. [facility] Medical History TIA (transient ischemic attack) Personal history of other diseases of digestive system Noninfective gastroenteritis and colitis, unspecified Essential hypertension Diaphragmatic hernia without obstruction or gangrene Constipation, unspecified Atherosclerotic heart disease of [place] coronary artery without angina pectoris Other specified [...] % (Auto) 66.5, Lymph % (Auto) 23.1, [place] % (Auto) 8.1, Eos % (Auto) 1.1, [...] ACUTE INTRACRANIAL HEMORRHAGE Chronic changes. Reading Location: [id number]-R Pelvis CT 08/03/24 11:10 IMPRESSION: Status post right intertrochanteric fracture reduction with compression screw and kaleb fixation device. Postoperative soft tissue changes. No evidence of localized hematoma. Reading Location: [facility] Assessment & Plan Assessment/Plan (1) Anemia: (2) [...] pursue endoscopy. Charges/Coding Visit Charges Inpatient E&M: 62994 Init Hosp L3 08/03/24 1909 <Electronically signed by Nomi Kee DO> Cosigner Signature (if applicable): CC: Dr. Kam Ocampo Sr., DO; Dr. Janine Harrison MD~ Signed [facility] Work Phone: 1(147) 368-624606-25-2025 Progress note [facility] Medical Records Department [address] [place] [address] Progress Note - Hospitalist 08/03/24 1211 MR#: [id number] Acct: [id number] Name: KATHERINE JUDGE Wilber Rep #:[id number] : 1935 89 From: Hayden malik DO PCP: Dr. Kam Ocampo Sr., Status:A DM IN Location: [place] [address] Reason for Visit Reason for Visit: Diagnoses [...] % (Auto) 70.8 H, Lymph % (Auto)19.7, [place] % (Auto) 7.2, Eos % (Auto) 1.4, [...] Clarity Clear, Urine pH 7.0, Ur Specific [place] 1.010, Urine Protein Negative, Urine Glucose (UA) [...] % (Auto) 66.5, Lymph % (Auto) 23.1, [place] % (Auto) 8.1, Eos % (Auto) 1.1, [...] Minimal intrahepatic biliary ductal dilatation. Reading Location: [id number]-[id number]-S Brain CT 08/03/24 11:10 IMPRESSION: NO ACUTE INTRACRANIAL HEMORRHAGE Chronic changes. Reading Location: [id number]-D Pelvis CT 08/03/24 11:10 IMPRESSION: Status post right intertrochanteric fracture reduction with compression screw and kaleb fixation device. Postoperative soft tissue changes. No evidence of localized hematoma. Reading Location: [id number]-[id number] Physical Exam Const alert, no apparent distress [...] is an 89-year-old female who presented to [facility] ED on 08/02/2024 with altered mentation and [...] nail placement on 07/26. Patient discharged to [facility] and suspect she will need SNF placement [...] CCA, DNI Expected disposition: Likely back to care home, TBD Total clinical time spent by myself addressing the patient's medical issues, reviewing all the data, and collaborating with patient's care team: 35 minutes. Charges/Coding Visit Charges Inpatient E&M: 42314 Subs Hosp L2 08/03/24 7698 Cosigner Signature (if applicable): CC: ~ Signed [facility]06-25-2025 Consult note [facility] Medical Records Department [address] [place] [address] Consultation - GI 08/03/24 1537 MR#: [id number] Acct: [id number] Name: KATHERINE JUDGE Rep #:[id number] : 1935 89 From: Nomi Kee DO PCP: Dr. Kam Ocampo Sr., DO Status:A DM IN Location: [place] [address] HPI Consult Data Date of Consult: 08/03/24 HPI Narrative Reason for Consultation: Anemia HPI Narrative: KATHERINE JUDGE, is a 89 F who [id number] female with past medical history of TIA/CVA. [...] urinary bladder. Minimal intrahepatic biliary ductal dilatation. [facility] Medical History TIA (transient ischemic attack) Personal history of other diseases of digestive system Noninfective gastroenteritis and colitis, unspecified Essential hypertension Diaphragmatic hernia without obstruction or gangrene Constipation, unspecified Atherosclerotic heart disease of [place] coronary artery without angina pectoris Other specified [...] % (Auto) 66.5, Lymph % (Auto) 23.1, Williamson % (Auto) 8.1, Eos % (Auto) 1.1, [...] ACUTE INTRACRANIAL HEMORRHAGE Chronic changes. Reading Location: [id number] Pelvis CT 08/03/24 11:10 IMPRESSION: Status post right intertrochanteric fracture reduction with compression screw and kaleb fixation device. Postoperative soft tissue changes. No evidence of localized hematoma. Reading Location: [id number] Assessment & Plan Assessment/Plan (1) Anemia: (2) [...] pursue endoscopy. Charges/Coding Visit Charges Inpatient E&M: 22050 Init Hosp L3 08/03/24 9736 Cosigner Signature (if applicable): CC: Dr. Kam Ocampo Sr., DO; Dr. Janine Harrison MD~ Signed [facility]06-25-2025 Radiology Diagnostic study note [facility] Imaging Services [address] [place] [address] Brain/Head without Contrast MR#: [id number] Acct: [id number] Name: KATHERINE JUDGE Rep #: [id number] : 1935 F 89 From: Reyes Haynes MD PCP: Dr. Kam Ocampo Sr., DO Status: A DM IN Study:Brain/Head without Contrast Date of Exa m: 08/03/24 Exam# [id number] Ordering Dr: Hayden Cardenas DO PROCEDURE: BRAIN/HEAD [...] DO; Dr. Kam Ocampo Sr., DO ~ Safety Admin Assistant: Signed [facility]06-25-2025 Radiology Diagnostic study note [facility] Imaging Services [address] [place], [place] [id number] Pelvis without IV Contrast MR#: [id number] Acct: [id number] Name: KATHERINE JUDGE Rep #: [id number] : 1935 F 89 From: Reyes Haynes MD PCP: Dr. Kam Ocampo Sr., DO Status: A DM IN Study:Pelvis without IV Contrast Date of Exam : 08/03/24 Exam# [id number] Ordering Dr: Hayden Cardenas DO PROCEDURE: PELVIS [...] DO; Dr. Kam Ocampo Sr., DO ~ Safety Admin Assistant: Signed [facility]06-24-2025 History and physical note Author Janine Harrison [facility] Note Date/Time August 02, 2024 5:[address] [facility] Medical Records Department [address] [place] [address] H&P Exam - Hospitalist 08/02/24 1720 MR#: [id number] Acct: [id number] Name: KATHERINE JUDGE Rep #:[id number] : 1935 89 From: Janine Harrison MD PCP: Dr. Kam Ocampo Sr., DO Status:A DM IN Location: [facility] IV055-0 HPI - General General Date of Admission: 08/02/24 Date of Service: 08/02/24 Chief Complaint: Low hgb HPI Narrative KATHERINE JUDGE, is a 89-year-old female with a history of TIA, hypertension, irondeficiency anemia, hip fracture repair last week, depression, GERD who presentedto [facility] ED 08/02/2024 with concerns for low hemoglobin. [...] she has had any surgeries or interventions. [facility] Medical History TIA (transient ischemic attack) Personal history of other diseases of digestive system Noninfective gastroenteritis and colitis, unspecified Essential hypertension Diaphragmatic hernia without obstruction or gangrene Constipation, unspecified Atherosclerotic heart disease of [place] coronary artery without angina pectoris Other specified [...] % (Auto) 70.8 H, Lymph % (Auto)19.7, Williamson % (Auto) 7.2, Eos % (Auto) 1.4, [...] Clarity Clear, Urine pH 7.0, Ur Specific [place] 1.010, Urine Protein Negative, Urine Glucose (UA) [...] Minimal intrahepatic biliary ductal dilatation. Reading Location: [facility] Assessment & Plan Assessment/Plan (1) GI bleed: [...] Harrison MD Charges/Coding Visit Charges Inpatient E&M: 36520 Init Hosp L2 08/02/24 1750 <Electronically signed by Janine Harrison MD> Cosigner Signature (if applicable): CC: Dr. Kam Ocampo Sr., DO; Dr. Janine Harrison MD~ Signed [facility] Work Phone: 1(638) 440-716906-24-2025 Discharge summary Author Jamie Beltrán [facility] Note Date/Time August 02, 2024 4:32 pm [facility] Medical Records Department [address] [place] [address] Emergency Department Summary 08/02/24 MR#: [id number] Acct: [id number] Name: DERICKKATHERINE Wilber Rep #:[id number] : 1935 89 From: Jamie Beltrán DO PCP: Dr. Kam Ocampo Sr., DO Status:A DM IN Location: [place] [address] HPI History of Present Illness Chief Complaint: [...] replacement while in the hospital last time. [facility] Medical History TIA (transient ischemic attack) Personal history of other diseases of digestive system Noninfective gastroenteritis and colitis, unspecified Essential hypertension Diaphragmatic hernia without obstruction or gangrene Constipation, unspecified Atherosclerotic heart disease of [place] coronary artery without angina pectoris Other specified [...] (Auto) 70.8 H Lymph % (Auto) 19.7 Williamson % (Auto) 7.2 Eos % (Auto) 1.4 [...] Clarity Clear Urine pH 7.0 Ur Specific [place] 1.010 Urine Protein Negative Urine Glucose (UA) [...] Minimal intrahepatic biliary ductal dilatation. Reading Location: [id number] Discharge Plan Triage Chief Complaint: Abn Labs [...] DO [Primary Care Provider] - Print Language: Ecuadorean Disposition Disposition: Acute Care Hospital [facility] What to do if you have Problems For any increased pain, shortness of breath, bleeding, nausea or vomiting, chestpain, or any unexpected problems, contact your Primary Care Provider. Call [facility] ([phone]) or report to the closest Emergency Room. Call 911 if necessary. 08/02/24 1632 <Electronically signed by Jamie Beltrán DO> Cosigner Signature (if applicable): CC: Dr. Kam Ocampo Sr., ~ Signed [facility] Work Phone: 1(802) 913-524906-24-2025 History and physical note [facility] Medical Records Department [address] [place] [address] H&P Exam - Hospitalist 08/02/24 1720 MR#: [id number] Acct: [id number] Name: KATHERINE JUDGE Rep #:[id number] : 1935 89 From: Janine Harrison MD PCP: Dr. Kam Ocampo Sr., Status:A DM IN Location: WA3 [id number] HPI - General General Date of Admission: 08/02/24 Date of Service: 08/02/24 Chief Complaint: Low hgb HPI Narrative KATHERINE JUDGE, is a 89-year-old female with a history of TIA, hypertension, irondeficiency anemia, hip fracture repair last week, depression, GERD who presentedto [facility] ED 08/02/2024 with concerns for low hemoglobin. [...] she has had any surgeries or interventions. [facility] Medical History TIA (transient ischemic attack) Personal history of other diseases of digestive system Noninfective gastroenteritis and colitis, unspecified Essential hypertension Diaphragmatic hernia without obstruction or gangrene Constipation, unspecified Atherosclerotic heart disease of [place] coronary artery without angina pectoris Other specified [...] % (Auto) 70.8 H, Lymph % (Auto)19.7, Williamson % (Auto) 7.2, Eos % (Auto) 1.4, [...] Clarity Clear, Urine pH 7.0, Ur Specific [place] 1.010, Urine Protein Negative, Urine Glucose (UA) [...] Minimal intrahepatic biliary ductal dilatation. Reading Location: [id number] Assessment & Plan Assessment/Plan (1) GI bleed: [...] Harrison MD Charges/Coding Visit Charges Inpatient E&M: 20096 Init Hosp L2 08/02/24 1750 Cosigner Signature (if applicable): CC: Dr. Kam Ocampo Sr., DO; Dr. Janine Harrison MD~ Signed [facility]06-24-2025 Discharge summary [facility] Medical Records Department [address] [place] [address] Emergency Department Summary 08/02/24 MR#: [id number] Acct: [id number] Name: KATHERINE JUDGE Rep #:[id number] : 1935 89 From: Jamie Beltrán DO PCP: Dr. Kam Ocampo Sr., Status:R [...] replacement while in the hospital last time. [facility] Medical History TIA (transient ischemic attack) Personal history of other diseases of digestive system Noninfective gastroenteritis and colitis, unspecified Essential hypertension Diaphragmatic hernia without obstruction or gangrene Constipation, unspecified Atherosclerotic heart disease of [place] coronary artery without angina pectoris Other specified [...] (Auto) 70.8 H Lymph % (Auto) 19.7 Williamson % (Auto) 7.2 Eos % (Auto) 1.4 [...] Clarity Clear Urine pH 7.0 Ur Specific [place] 1.010 Urine Protein Negative Urine Glucose (UA) [...] Minimal intrahepatic biliary ductal dilatation. Reading Location: [id number] Discharge Plan Triage Chief Complaint: Abn Labs [...] Kam Ocampo Sr., [Primary Care Provider] - Print Language: Ecuadorean Disposition Disposition: Acute Care Hospital [facility] What to do if you have Problems For any increased pain, shortness of breath, bleeding, nausea or vomiting, chestpain, or any unexpected problems, contact your Primary Care Provider. Call [facility] ([phone]) or report tothe closest Emergency Room. Call 911 if necessary. 08/02/24 1632 Cosigner Signature (if applicable): CC: Dr. Kam Ocampo Sr., DO ~ Signed [facility]06-24-2025 Discharge summary [facility] Medical Records Department [address] [place] [address] Emergency Department Summary 08/02/24 MR#: [id number] Acct: [id number] Name: KATHERINE JUDGE Rep #:[id number] : 1935 89 From: Jamie Beltrán DO PCP: Dr. Kam Ocampo Sr., DO Status:A DM IN Location: [place] [address] HPI History of Present Illness Chief Complaint: [...] replacement while in the hospital last time. [facility] Medical History TIA (transient ischemic attack) Personal history of other diseases of digestive system Noninfective gastroenteritis and colitis, unspecified Essential hypertension Diaphragmatic hernia without obstruction or gangrene Constipation, unspecified Atherosclerotic heart disease of [place] coronary artery without angina pectoris Other specified [...] (Auto) 70.8 H Lymph % (Auto) 19.7 Williamson % (Auto) 7.2 Eos % (Auto) 1.4 [...] Clarity Clear Urine pH 7.0 Ur Specific [place] 1.010 Urine Protein Negative Urine Glucose (UA) [...] Minimal intrahepatic biliary ductal dilatation. Reading Location: [id number] Discharge Plan Triage Chief Complaint: Abn Labs [...] DO [Primary Care Provider] - Print Language: Ecuadorean Disposition Disposition: Acute Care Hospital [facility] What to do if you have Problems For any increased pain, shortness of breath, bleeding, nausea or vomiting, chestpain, or any unexpected problems, contact your Primary Care Provider. Call [facility] ([phone]) or report tothe closest Emergency Room. Call 911 if necessary. 08/02/24 1634 Cosigner Signature (if applicable): CC: Dr. Kam Ocampo Sr., DO ~ Signed [facility]06-24-2025 Radiology Diagnostic study note [facility] Imaging Services [address] [place] [address] Abdomen/Pelvis W IV Cont ONLY MR#: [id number] Acct: [id number] Name: KATHERINE JUDGE Rep #: [id number] : 1935 F 89 From: Reyes Haynes MD PCP: Dr. Kam Ocampo Sr., DO Status: R EG ER Study:Abdomen/Pelvis W IV Cont ONLY Date of E xam: 08/02/24 Exam# [id number] Ordering Dr: Hector Beltrán DO PROCEDURE: ABDOMEN/PELVIS [...] Minimal intrahepatic biliary ductal dilatation. Reading Location: [id number] CC: Dr. Kam Ocampo Sr., DO; Dr. Jamie Beltrán, DO ~ Safety Admin Assistant: Signed [facility]06-24-2025 Radiology Diagnostic study note [facility] Imaging Services [address] [place] [address] Abdomen/Pelvis W IV Cont ONLY MR#: [id number] Acct: [id number] Name: KATHERINE JUDGE Rep #: [id number] : 1935 F 89 From: Reyes Haynes MD PCP: Dr. Kam Ocampo Sr., DO Status: A DM IN Study:Abdomen/Pelvis W IV Cont ONLY Date of E xam: 08/02/24 Exam# [id number] Ordering Dr: Hector Beltrán DO PROCEDURE: ABDOMEN/PELVIS [...] Location: [place] CC: Dr. Kam Ocampo Sr., DO; Dr. Jamie Beltrán DO ~ Safety Admin Assistant: Signed [facility]06-24-2025 Discharge summary Author Jamie Beltrán [facility] Note Date/Time August 02, 2024 4:[address] [facility] Medical Records Department [address] [place] [address] Emergency Department Summary 08/02/24 MR#: [id number] Acct: [id number] Name: KATHERINE JUDGE Rep #:[id number] : 1935 89 From: Jamie Beltrán DO PCP: Dr. Kam Ocampo Sr., Status:R [...] replacement while in the hospital last time. [facility] Medical History TIA (transient ischemic attack) Personal history of other diseases of digestive system Noninfective gastroenteritis and colitis, unspecified Essential hypertension Diaphragmatic hernia without obstruction or gangrene Constipation, unspecified Atherosclerotic heart disease of [place] coronary artery without angina pectoris Other specified [...] (Auto) 70.8 H Lymph % (Auto) 19.7 Williamson % (Auto) 7.2 Eos % (Auto) 1.4 [...] Clarity Clear Urine pH 7.0 Ur Specific [place] 1.010 Urine Protein Negative Urine Glucose (UA) [...] Minimal intrahepatic biliary ductal dilatation. Reading Location: [facility] Discharge Plan Triage Chief Complaint: Abn Labs [...] Primary Care Provider: Terrence Addison,Kam Referrals: Terrence Addison,DO Kam [Primary Care Provider] - Print Language: Ecuadorean Disposition Disposition: Acute Care Hospital [facility] What to do if you have Problems For any increased pain, shortness of breath, bleeding, nausea or vomiting, chestpain, or any unexpected problems, contact your Primary Care Provider. Call [facility] ([phone]) or report to the closest Emergency Room. Call 911 if necessary. 08/02/24 7824 <Electronically signed by Jamie Beltrán DO> Cosigner Signature (if applicable): CC: Dr. Kam Ocampo Sr., DO ~ Signed [facility] Work Phone: 1(957) 268-566506-19-2025 Progress note [facility] Medical Records Department [address] [place] [address] Progress Note - Orthopedic 07/28/24 0708 MR#: [id number] Acct: [id number] Name: KATHERINE JUDGE Rep #:[id number] : 1935 89 From: Thanh Mclaughlin DO PCP: Dr. Kam cOampo Sr., DO Status:A DM IN Location: MS3 EB050-4 Subjective Subjective Seen and examined. Pain is [...] Cosigner Signature (if applicable): CC: ~ Signed [facility]06-19-2025 Discharge summary Author Neymar Cunningham [facility] Note Date/Time July 28, 2024 11:3 0am [facility] Medical Records Department [address] [place] [address] Discharge Summary 07/28/24 1128 MR#: [id number] Acct: [id number] Name: KATHERINE JUDGE Rep #:[id number] : 1935 89 From: Neymar Herrera PCP: Dr. Kam Ocampo Sr., DO Status:A DM IN Location: [place] [address] Providers Date of Admission: 07/25/24 Date of [...] is an 89-year-old female who presented to [facility] ED on 07/25/2024 with right hip pain after a mechanical fall. 1. Acute debility due to right hip nondisplaced intertrochanteric fracture: [facility]. Hip and pelvis x-rays reviewed and [...] Patient on home oxygen as needed in care home but required 4 L at time of [...] CBC and BMP in 1 week in care home. Preoperative evaluation ? NSQIP score: Patient is [...] PT/OT/case management consulted as above. Lives in [facility], will likely be okay to return there [...] of the proximal right femur. Reading Location: [place] [address] Chest X-Ray 07/25/24 15:15 IMPRESSION: Cardiomegaly and vascular congestion with atelectasis at the lung bases. Reading Location: [facility]IR-1 Femur X-Ray 07/25/24 17:40 IMPRESSION: Nondisplaced intertrochanteric fracture. Reading Location: [id number] Echocardiogram 07/25/24 22:20 Interpretation Summary Hypermobile atrial [...] 0.5 mg/2 mL suspension for nebulization mg copy writer 07/25/24 bupropion HCl 150 mg 24 hr [...] % (Auto) 65.7, Lymph % (Auto) 25.1, Williamson % (Auto) 5.8, Eos % (Auto) 2.9, [...] Attending Provider: Neymar Cunningham Primary Care Provider: Aline Ocampo Sr.n Consulting Providers: Thanh Mclaughlin; Hayden Diaz Discharge [...] in before D/C Order can be placed): Fdc Facility Charges/Coding Visit Charges Inpatient E&M: 54433 Disch Hosp >30min 07/28/24 1130 <Electronically signed by Neymar Cunningham MD> Cosigner Signature (if applicable): CC: Dr. Kam Ocampo Sr., DO; Dr. Neymar Cunningham MD~ Signed [facility] Work Phone: 1(534) 604-638206-19-2025 Discharge summary Author Neymar Cunningham [facility] Note Date/Time July 28, 2024 11:[address] [facility] Medical Records Department [address] [place] [address] Transfer to [facility] MR#: [id number] Acct: [id number] Name: KATHERINE JUDGE Rep #:[id number] : 1935 89 From: Neymar Herrera PCP: Dr. Kam Ocampo Sr., DO Status:A DM IN Certification of patient admission REQUIRED AT TIME OF ADMISSION. I CERTIFY THAT POST-HOSPITAL ECF SERVICES ARE REQUIRED TO BE GIVEN ON AN IN-PATIENT BASIS BECAUSE OF THE ABOVE NAMED PATIENT'S NEED FOR GROUP HOME CARE ON A CONTINUING BASIS FOR THE CONDITION(S) FOR WHICH HE/SHE WAS RECEIVING IN-PATIENT HOSPITAL SERVICES PRIOR TO HIS/HER TRANSFER TO THE ECF. 07/28/24 1128<Electronically signed by Neymar Cunningham MD> [...] is an 89-year-old female who presented to [facility] ED on 07/25/2024 with right hip pain after a mechanical fall. 1. Acute debility due to right hip nondisplaced intertrochanteric fracture: Patient is being admitted on [facility] floor. Hip and pelvis x-rays [...] Patient on home oxygen as needed in care home but required 4 L at time of [...] PT/OT/case management consulted as above. Lives in [facility], will likely be okay to return there [...] of the proximal right femur. Reading Location: [facility] Chest X-Ray 07/25/24 15:15 IMPRESSION: Cardiomegaly and vascular congestion with atelectasis at the lung bases. Reading Location: [facility] Femur X-Ray 07/25/24 17:40 IMPRESSION: Nondisplaced intertrochanteric fracture. Reading Location: [id number] Echocardiogram 07/25/24 22:20 Interpretation Summary Hypermobile atrial [...] in before D/C Order can be placed): [facility] Facility (1) Closed intertrochanteric fracture of right hip Qualifiers: Encounter type: initial encounter Fracture alignment: displaced Qualified Code(s): S72.141A - Displaced intertrochanteric fracture of right femur, initialencounter for closed fracture 07/28/24 1128 <Electronically signed by Neymar Cunningham MD> Cosigner Signature (if applicable): CC: Dr. Hayden Diaz DO; Dr. Kam Ocampo Sr., ; Dr. Thanh Mclaughlin DO ~ [facility] Work Phone: 1(574) 712-984306-19-2025 Discharge summary [facility] Medical Records Department [address] [place] [address] Discharge Summary 07/28/24 1128 MR#: [id number] Acct: [id number] Name: DERICKKATHERINE Wilber Rep #:[id number] : 1935 89 From: Neymar Herrera PCP: Dr. Kam Ocampo Sr., DO Status:A DM IN Location: [facility] [id number] Providers Date of Admission: 07/25/24 Date of [...] is an 89-year-old female who presented to [facility] ED on 07/25/2024 with right hip pain after a mechanical fall. 1. Acute debility due to right hip nondisplaced intertrochanteric fracture: [facility]. Hip and pelvis x-rays reviewed and [...] Patient on home oxygen as needed in care home but required 4 L at time of [...] CBC and BMP in 1 week in care home. Preoperative evaluation ? NSQIP score: Patient is [...] PT/OT/case management consulted as above. Lives in [facility], will likely be okay to return there [...] of the proximal right femur. Reading Location: [facility] Chest X-Ray 07/25/24 15:15 IMPRESSION: Cardiomegaly and vascular congestion with atelectasis at the lung bases. Reading Location: [facility] Femur X-Ray 07/25/24 17:40 IMPRESSION: Nondisplaced intertrochanteric fracture. Reading Location: [id number] Echocardiogram 07/25/24 22:20 Interpretation Summary Hypermobile atrial [...] 0.5 mg/2 mL suspension for nebulization mg copy writer 07/25/24 bupropion HCl 150 mg 24 hr [...] % (Auto) 65.7, Lymph % (Auto) 25.1, [place] % (Auto) 5.8, Eos % (Auto) 2.9, [...] in before D/C Order can be placed): Fdc Facility Charges/Coding Visit Charges Inpatient E&M: 45302 Disch Hosp >30min 07/28/24 1130 Cosigner Signature (if applicable): CC: Dr. Kam Ocampo Sr., DO; Dr. Neymar Cunningham MD~ Signed [facility]06-19-2025 Discharge summary [facility] Medical Records Department [address] [place] [address] Transfer to [facility] MR#: [id number] Acct: [id number] Name: KATHERINE JUDGE Wilber Rep #:[id number] : 1935 89 From: Neymar Herrera PCP: Dr. Kam Ocampo Sr., DO Status:A DM IN Certification of patient admission REQUIRED AT TIME OF ADMISSION. I CERTIFY THAT POST-HOSPITAL ECF SERVICES ARE REQUIRED TO BE GIVEN ON AN IN-PATIENT BASIS BECAUSE OF THE ABOVE NAMED PATIENT'S NEED FOR GROUP HOME CARE ON A CONTINUING BASIS FOR THE CONDITION(S) FOR WHICH HE/SHE WAS RECEIVING IN-PATIENT HOSPITAL SERVICES PRIOR TO HIS/HER TRANSFER TO THE F. 07/28/24 1128 Diet Diet Order/Speech Therapy: INPATIENT [...] is an 89-year-old female who presented to [facility] ED on 07/25/2024 with right hip pain after a mechanical fall. 1. Acute debility due to right hip nondisplaced intertrochanteric fracture: Patient is being admitted on [facility] floor. Hip and pelvis x-rays [...] Patient on home oxygen as needed in care home but required 4 L at time of [...] PT/OT/case management consulted as above. Lives in [facility], will likely be okay to return there [...] of the proximal right femur. Reading Location: [facility] Chest X-Ray 07/25/24 15:15 IMPRESSION: Cardiomegaly and vascular congestion with atelectasis at the lung bases. [facility] 07/25/24 17:40 IMPRESSION: Nondisplaced intertrochanteric fracture. Reading Location: [id number] Echocardiogram 07/25/24 22:20 Interpretation Summary Hypermobile atrial [...] in before D/C Order can be placed): Fdc Facility (1) Closed intertrochanteric fracture of right hip Qualifiers: Encounter type: initial encounter Fracture alignment: displaced Qualified Code(s): S72.141A - Displaced intertrochanteric fracture of right femur, initialencounter for closed fracture 07/28/24 1128 Cosigner Signature (if applicable): CC: Dr. Hayden Diaz DO; Dr. Kam Ocampo Sr., DO; Dr. Thanh Mclaughlin DO ~ [facility]06-19-2025 [facility]06-19-2025 Progress note Author Neymar Cunningham [facility] Note Date/Time July 28, 2024 8:[address] [facility] Medical Records Department [address] [place] [address] Progress Note - Hospitalist 07/28/24 0753 MR#: [id number] Acct: [id number] Name: KATHERINE JUDGE Rep #:[id number] : 1935 89 From: Neymar Herrera PCP: Dr. Kam Ocampo SrLeigh, DO Status:A DM IN Location: [place] [address] Reason for Visit Reason for Visit: Diagnoses [...] % (Auto) 65.7, Lymph % (Auto) 25.1, [place] % (Auto) 5.8, Eos % (Auto) 2.9, [...] states that she uses oxygen as needed care home. Uses CPAP diligently at night Blood pressure [...] is an 89-year-old female who presented to [facility] ED on 07/25/2024 with right hip pain after a mechanical fall. 1. Acute debility due to right hip nondisplaced intertrochanteric fracture: Patient is being admitted on [facility] floor. Hip and pelvis x-rays [...] Patient on home oxygen as needed in care home but required 4 L at time of [...] PT/OT/case management consulted as above. Lives in [facility], will likely be okay to return there [...] of the proximal right femur. [facility] Chest [facility] 07/25/24 15:15 IMPRESSION: Cardiomegaly and vascular congestion with atelectasis at the lung bases. Reading Location[facility] Femur X-Ray 07/25/24 17:40 IMPRESSION: Nondisplaced intertrochanteric fracture. Reading Location: [id number] Echocardiogram 07/25/24 22:20 Interpretation Summary Hypermobile atrial septum. Normal LV size. Left ventricular systolic function is normal. The left ventricular ejection fraction is 70 %. Stage 1 diastolic dysfunction. Mild-Moderate (1-2+) anteriorly directed mitral valve insufficiency. Posterior leaflet mitral valve prolapse. Moderate pulmonary hypertension. Charges/Coding Visit Charges Inpatient E&M: 94446 Subs Hosp L2 07/28/24 0800 <Electronically signed by Neymar Cunningham MD> Cosigner Signature (if applicable): CC: ~ Signed [facility] Work Phone: 1(439) 835-180706-19-2025 Progress note Author Thanh Mclaughlin [facility] Note Date/Time July 28, 2024 3:[address] [facility] Medical Records Department [address] [place] [address] Progress Note - Orthopedic 07/28/24 0708 MR#: [id number] Acct: [id number] Name: KATHERINE JUDGE Rep #:[id number] : 1935 89 From: Thanh Mclaughlin DO PCP: Dr. Kam Ocampo Sr., DO Status:A DM IN Location: [place] [address] Subjective Subjective Seen and examined. Pain is [...] Cosigner Signature (if applicable): CC: ~ Signed [facility] Work Phone: 1(749) 769-860306-19-2025 Progress note [facility] Medical Records Department [address] [place] [address] Progress Note - Hospitalist 07/28/24 0753 MR#: [id number] Acct: [id number] Name: KATHERINE JUDGE Rep #:[id number] : 1935 89 From: Neymar Herrera PCP: Dr. Kam Ocampo Sr., DO Status:A DM IN Location: [place] [address] Reason for Visit Reason for Visit: Diagnoses [...] Intake and Output for Last 24 Hours 06/07/27/24 07/28/24 23:59 23:59 23:59 Intake Total 1000 [...] % (Auto) 65.7, Lymph % (Auto) 25.1, Williamson % (Auto) 5.8, Eos % (Auto) 2.9, [...] states that she uses oxygen as needed care home. Uses CPAP diligently at night Blood pressure [...] is an 89-year-old female who presented to [facility] ED on 07/25/2024 with right hip pain after a mechanical fall. 1. Acute debility due to right hip nondisplaced intertrochanteric fracture: [facility]. Hip and pelvis x-rays reviewed and [...] Patient on home oxygen as needed in care home but required 4 L at time of [...] PT/OT/case management consulted as above. Lives in [facility], will likely be okay to return there [...] of the proximal right femur. Reading Location: [facility]-IR-1 Chest X-Ray 07/25/24 15:15 IMPRESSION: Cardiomegaly and vascular congestion with atelectasis at the lung bases. [facility] 07/25/24 17:40 IMPRESSION: Nondisplaced intertrochanteric fracture. Reading Location: [id number] Echocardiogram 07/25/24 22:20 Interpretation Summary Hypermobile atrial septum. Normal LV size. Left ventricular systolic function is normal. The left ventricular ejection fraction is 70 %. Stage 1 diastolic dysfunction. Mild-Moderate (1-2+) anteriorly directed mitral valve insufficiency. Posterior leaflet mitral valve prolapse. Moderate pulmonary hypertension. Charges/Coding Visit Charges Inpatient E&M: 76885 Subs Hosp L2 07/28/24 0800 Cosigner Signature (if applicable): CC: ~ Signed [facility]06-18-2025 Progress note Author Neymar Cunningham [facility] Note Date/Time July 27, 2024 5:[address] [facility] Medical Records Department [address] [place] [address] Progress Note - Hospitalist 07/27/24 1746 MR#: [id number] Acct: [id number] Name: KATHERINE JUDGE Rep #:[id number] : 1935 89 From: Neymar Herrera PCP: Dr. Kam Ocampo Sr., DO Status:A DM IN Location: [facility] [id number] Reason for Visit Reason for Visit: Diagnoses [...] 88.1 H, Lymph % (Auto) 8.5 L, Williamson % (Auto) 2.9, Eos % (Auto) 0.0, [...] 07/26/24 15:09 IMPRESSION: As above. Reading Location: [id number] Physical Exam Narrative Seen and examined. Patient had right hip surgery yesterday. Doing well, sitting up in the chair. On 2 L of oxygen. Denies shortness of breath. Patient states that she uses oxygen as needed care home. Uses CPAP diligently at night Blood pressure [...] is an 89-year-old female who presented to [facility] ED on 07/25/2024 with right hip pain after a mechanical fall. 1. Acute debility due to right hip nondisplaced intertrochanteric fracture: [facility]. Hip and pelvis x-rays reviewed and [...] Patient on home oxygen as needed in care home but required 4 L at time of [...] PT/OT/case management consulted as above. Lives in [facility], will likely be okay to return there [...] of the proximal right femur. Reading Location: [facility]-1 Chest X-Ray 07/25/24 15:15 IMPRESSION: Cardiomegaly and vascular congestion with atelectasis at the lung bases. [facility] Femur X-[facility] 07/25/24 17:40 IMPRESSION: Nondisplaced intertrochanteric fracture. Reading Location: [id number] Echocardiogram 07/25/24 22:20 Interpretation Summary Hypermobile atrial septum. Normal LV size. Left ventricular systolic function is normal. The left ventricular ejection fraction is 70 %. Stage 1 diastolic dysfunction. Mild-Moderate (1-2+) anteriorly directed mitral valve insufficiency. Posterior leaflet mitral valve prolapse. Moderate pulmonary hypertension. Charges/Coding Visit Charges Inpatient E&M: 17379 Subs Hosp L2 07/27/24 1750 <Electronically signed by Neymar Cunningham MD> Cosigner Signature (if applicable): CC: ~ Signed [facility] Work Phone: 1(871) 668-173406-18-2025 Progress [address] [facility] Medical Records Department [address] [place] [address] Progress Note - Hospitalist 07/27/24 1746 MR#: [id number] Acct: [id number] Name: KATHERINE JUDGE Rep #:[id number] : 1935 89 From: Neymar Herrera PCP: Dr. Kam Ocampo SrLeigh, DO Status:A DM IN [id number] Reason for Visit Reason for Visit: Diagnoses [...] 88.1 H, Lymph % (Auto) 8.5 L, Williamson % (Auto) 2.9, Eos % (Auto) 0.0, [...] 07/26/24 15:09 IMPRESSION: As above. Reading Location: [place] [address] Physical Exam Narrative Seen and examined. Patient had right hip surgery yesterday. Doing well, sitting up in the chair. On 2 L of oxygen. Denies shortness of breath. Patient states that she uses oxygen as needed care home. Uses CPAP diligently at night Blood pressure [...] is an 89-year-old female who presented to [facility] ED on 07/25/2024 with right hip pain [...] Patient on home oxygen as needed in care home but required 4 L at time of [...] PT/OT/case management consulted as above. Lives in [facility], will likely be okay to return there [...] of the proximal right femur. [facility] Chest X-Ray 07/25/24 15:15 IMPRESSION: Cardiomegaly and vascular congestion with atelectasis at the lung bases. [facility] Femur X-Ray 07/25/24 17:40 IMPRESSION: Nondisplaced intertrochanteric fracture. Reading Location: [id number] Echocardiogram 07/25/24 22:20 Interpretation Summary Hypermobile atrial septum. Normal LV size. Left ventricular systolic function is normal. The left ventricular ejection fraction is 70 %. Stage 1 diastolic dysfunction. Mild-Moderate (1-2+) anteriorly directed mitral valve insufficiency. Posterior leaflet mitral valve prolapse. Moderate pulmonary hypertension. Charges/Coding Visit Charges Inpatient E&M: 66295 Subs Hosp L2 07/27/24 1750 Cosigner Signature (if applicable): CC: ~ Signed [facility]06-18-2025 Progress note [facility] Note Date/Time July 27, 2024 1:28 pm [facility] Medical Records Department [address] [place] [address] Progress Note - Orthopedic 07/27/24 1326 MR#: [id number] Acct: [id number] Name: KATHERINE JUDGE Wilber Rep #:[id number] : 1935 89 From: Thanh Mclaughlin DO PCP: Dr. Kam Ocampo Sr., DO Status:A DM IN Location: MS3 [id number] Subjective Subjective Patient seen and examined. She [...] 88.1 H, Lymph % (Auto) 8.5 L, Williamson % (Auto) 2.9, Eos % (Auto) 0.0, [...] 07/26/24 15:09 IMPRESSION: As above. Reading Location: [place] [address] Physical Exam Const alert, oriented x3 and [...] Cosigner Signature (if applicable): CC: ~ Signed [facility] Work Phone: 1(337) 226-893506-18-2025 Progress [address] [facility] Medical Records Department [address] [place] [address] Progress Note - Orthopedic 07/27/24 1326 MR#: [id number] Acct: [id number] Name: KATHERINE JUDGE Rep #:[id number] : 1935 89 From: Thanh Mclaughlin DO PCP: Dr. Kam Ocampo Sr., DO Status:A DM IN Location: WA3 IM005-9 Subjective Subjective Patient seen and examined. She [...] 88.1 H, Lymph % (Auto) 8.5 L, Williamson % (Auto) 2.9, Eos % (Auto) 0.0, [...] 07/26/24 15:09 IMPRESSION: As above. Reading Location: [place] [address] Physical Exam Const alert, oriented x3 and [...] Cosigner Signature (if applicable): CC: ~ Signed [facility]06-17-2025 Radiology Diagnostic study note [facility] Imaging Services [address] [place] [address] Hip Min 2 Views (Portable) MR#: [id number] Acct: [id number] Name: KATHERINE JUDGE Rep #: [id number] : 1935 F 89 From: Brannon Bland MD PCP: Dr. Kam Ocampo Sr., Status: A DM IN Study:Hip Min 2 Views (Portable) Date of Exam : 07/26/24 Exam# [id number] Ordering Dr: Thanh Mclaughlin DO PROCEDURE: HIP MIN 2 VIEWS (PORTABLE) 07/26/2024 REASON FOR EXAM: FX REPAIR IN OR TECHNIQUE: Fluoroscopic images of the right hip. COMPARISON: 07/25/2024. FINDINGS: Fluoroscopic images for ORIF of a intertrochanteric right femoral fracture. Fluoroscopic time of 44.2 seconds. 4.90 mGy. See procedure report for full details. RAD/Hip Min 2 Views (Portable) IMPRESSION: As above. Reading Location: [id number] CC: Dr. Kam Ocampo Sr., DO; Dr. Thanh Mclaughlin DO ~ Safety Admin Assistant: Signed [facility]06-17-2025 Consult note Author Rocky Sidhu [facility] Note Date/Time July 26, 2024 6:43 pm [facility] Medical Records Department [address] [place] [address] Anesthesia Postop Eval II 07/26/241842 MR#: [id number] Acct: [id number] Name: KATHERINE JUDGE Rep #:[id number] : 1935 89 From: Rocky Sidhu MD PCP: Dr. Kam Ocampo Sr., DO Status:A DM IN Y Race: C Location: [place] [id number] 1 Anesthesia Postop Eval I Sum Postop Eval Completion status Anesthesia document: Postop Eval 1 completed: Yes Anesthesia Postop Eval I Summary Anesthesia Postop Eval I Summary: Anesthesia Postop Eval I: Assessment Summary Airway patent Yes 07/26/24 18:33 LOCKER ROOM ATTENDANT.DBAK Spontaneous unlabored Yes 07/26/24 18:33 LOCKER ROOM ATTENDANT.DBAK respirations Mental status Awake 07/26/24 18:33 LOCKER ROOM ATTENDANT.DBAK nausea No 07/26/24 18:33 LOCKER ROOM ATTENDANT.DBAK Vomiting No 07/26/24 18:33 LOCKER ROOM ATTENDANT.DBAK Anesthesia Postop Eval I: Fluid Summary Crystalloid volume administer 600 07/26/24 18:33 LOCKER ROOM ATTENDANT.DBAK (ml) Colloids volume administered ( ml) Blood Product volume administered (ml) Total IV fluid infused 600 07/26/24 18:33 LOCKER ROOM ATTENDANT.DBAK Anesthesia Postop Eval I: Summary Notes Anesthesia Complication No 07/26/24 18:33 LOCKER ROOM ATTENDANT.DBAK Anesthesia Complication Comment: Post-operative progress note VSS see PACU notes 07/26/24 18:33 LOCKER ROOM ATTENDANT.DBAK for detaILS Anesthesia: Postop Eval II Evaluation Mental status: Awake Pain Level: 0 nausea: No Vomiting: No Complications Anesthesia Complication: No 07/26/241842 <Electronically signed by Rocky Sidhu MD> Date _ Rocky Sidhu MD Cosigner Signature: Date CC: ~ Signed [facility] Work Phone: [phone]) [phone] Consult note Author Florentin Clemens [facility] Note Date/Time July 26, 2024 6:33 pm [facility] Medical Records Department [address] [facility] [place] [address] Anesthesia Postop Eval I 07/26/24 183 MR#: [id number] Acct: [id number] Name: DERICKKATHERINE Wilber Rep #:[id number] : 1935 89 From: Florentin Cameron LOCKER ROOM ATTENDANT PCP: Dr. Kam Ocampo Sr., DO Status:A DM IN Y Race: C Location: [place] [address] Anesthesia: Postop Eval I Current Vital Signs [...] CRNA Cosigner Signature: Date CC: ~ Signed [facility] Work Phone: [phone]) [phone] Consult note [facility] Medical Records Department [address] [place] [address] Anesthesia Postop Eval II 07/26/24 1843 MR#: [id number] Acct: [id number] Name: KATHERINE JUDGE Rep #:[id number] : 1935 89 From: Rocky Sidhu MD PCP: Dr. Kam Ocampo SrLeigh, DO Status:A DM IN Y Race: C Location: MS3 MS316 -1 Anesthesia Postop Eval I Sum Postop Eval Completion status Anesthesia document: Postop Eval 1 completed: Yes Anesthesia Postop Eval I Summary Anesthesia Postop Eval I Summary: Anesthesia Postop Eval I: Assessment Summary Airway patent Yes 07/26/24 18:33 LOCKER ROOM ATTENDANT.DBAK Spontaneous unlabored Yes 07/26/24 18:33 LOCKER ROOM ATTENDANT.DBAK respirations Mental status Awake 07/26/24 18:33 LOCKER ROOM ATTENDANT.DBAK nausea No 07/26/24 18:33 LOCKER ROOM ATTENDANT.DBAK Vomiting No 07/26/24 18:33 LOCKER ROOM ATTENDANT.DBAK Anesthesia Postop Eval I: Fluid Summary Crystalloid volume administer 600 07/26/24 18:33 LOCKER ROOM ATTENDANT.DBAK (ml) Colloids volume administered ( ml) Blood Product volume administered (ml) Total IV fluid infused 600 07/26/24 18:33 LOCKER ROOM ATTENDANT.DBAK Anesthesia Postop Eval I: Summary Notes Anesthesia Complication No 07/26/24 18:33 LOCKER ROOM ATTENDANT.DBAK Anesthesia Complication Comment: Post-operative progress note VSS see PACU notes 07/26/24 18:33 LOCKER ROOM ATTENDANT.DBAK for detaILS Anesthesia: Postop Eval II Evaluation Mental status: Awake Pain Level: 0 nausea: No Vomiting: No Complications Anesthesia Complication: No 07/26/24 1843 MD> Date _ Rocky Sidhu MD Cosigner Signature: Date CC: ~ Signed [facility]06-17-2025 Consult note Author Rocky Sidhu [facility] Note Date/Time July 26, 2024 4:41 pm [facility] Medical Records Department [address] [place] [address] Pre-Anesthesia Evaluation 07/26/24 1622 MR#: [id number] Acct: [id number] Name: KATHERINE JUDGE Rep #:[id number] : 1935 89 From: Rocky Sidhu MD PCP: Dr. Kam Ocampo Sr., DO Status:A DM IN Y Race: C [facility] -[facility] ASA Classification* ASA Classification ASA Classification: [...] Patient on home oxygen as needed in care home but required 4 L at time of [...] ortho note) Anesthesia History Anesthesia History - solid waste technician: Anesthesia History - solid waste technician Hx Hospitalization Any Problems With Anesthesia No [...] take am of surgery PONV PONV - solid waste technician: PONV - solid waste technician Female HX of Motion Sickness HX of N/V After Surgery Non-Smoker Duration of Surgery greater than 60 minutes Number of Risk Factors PONV Score Height & Weight Height & Weight: Anesthesia: Height & Weight Height 5 ft 07/26/24 13:46 Weight: 48.534 kg 07/26/24 13:46 Body Mass Index (BMI) 20.9 07/26/24 13:46 Respiratory Assessment Respiratory Assessment - solid waste technician: Respiratory Tract Infection Hx - solid waste technician Hx Respiratory Tract Infection No 07/26/24 03:31 STOP Sleep Apnea STOP Sleep Apnea - solid waste technician: STOP Sleep Apnea - solid waste technician Hx Hypertension Yes 07/25/24 18:26 Hx Sleep [...] Tobacco Use History Tobacco Use History - solid waste technician: Tobacco Use History - solid waste technician Tobacco Use Smoking Status Never smoker 07/25/24 18:26 Hx Tobacco Use No 07/25/24 18:26 Years Smoking Packs Smoked per Day Smoking Cessation Date was No - quit smoking greater 07/25/24 18:26 within the last 15 years than 15 years ago Hx Smoking Cessation Date Hx Smoking Cessation Counseling Hematologic Medial History Hematologic Hx - solid waste technician: Hematologic Medical Hx - documentation coordinator Hx of Blood Transfusion Yes 07/25/24 18:26 [...] confused, unrespo /Reproduction History /Reproductive History - solid waste technician: /Reproductive Hx- solid waste technician Hx Now No 07/26/24 03:31 Gestational Age [...] mls @ 15 mls/hr 07/25/24 18:28 IV .[id number] PRN Saline Flush Sodium Chloride 250 mls @ 15 mls/hr 07/25/24 18:28 IV .[id number] PRN Additional IVPB Infusion Lactated Ringer's 1,000 mls @ 15 mls/hr 07/26/24 15:45 IV .Q48H HUMBERTO Vancomycin HCl 1,000 mg in 200 mls @ 200 mls/hr 07/26/24 15:57 Vancomycin IV 07/26/24 16:56 PREOP ONE Isosorbide Mononitrate 30 mg 07/26/24 10:00 Isosorbide Mononitrate 30 Mg Tablet PO DAILY [facility] Protocol Loratadine 10 mg 07/26/24 10:00 07/26/24 08:23 Loratadine 10 Mg Tablet PO Not Given DAILY [facility] Melatonin 3 mg 07/25/24 22:00 Melatonin 3 Mg Tablet PO QHS PRN PRN INSOMNIA Metoprolol Tartrate 25 mg 07/25/24 22:00 07/26/24 09:13 Metoprolol Tartrate 25 Mg Tablet PO Not Given BID [facility] Protocol Mirtazapine 30 mg 07/25/24 22:00 07/25/24 22:25 Mirtazapine 30 Mg Tablet PO 30 mg QHS [facility] Administration Montelukast Sodium 10 mg 07/26/24 10:00 07/26/24 08:23 Montelukast 10 Mg Tablet PO Not Given DAILY [facility] Multivitamins 1 tablet 07/26/24 08:00 07/26/24 08:23 Multivitamins,Therapeutic [facility]t [facility] Ondansetron HCl 4 mg 07/25/24 18:26 07/26/24 12:31 Ondansetron 4 Mg/2 Ml Vial IV 4 mg Q8H PRN PRN Administration NAUSEA/VOMITING Oxycodone HCl 5 mg 07/25/24 18:26 07/26/24 10:54 Oxycodone 5 Mg Tablet PO 5 mg Q4H PRN PRN Administration Pain Score 6-10 Pantoprazole Sodium 40 mg 07/26/24 10:00 07/26/24 08:23 Pantoprazole Sodium 40 Mg Tablet PO Not Given DAILY [facility] Potassium Chloride 20 meq 07/26/24 10:00 07/26/24 08:23 Potassium Chloride Oral Tablet 20 Meq PO Not Given DAILY [facility] Senna/Docusate Sodium 1 tablet 07/26/24 22:00 Senna/Docusate Sodium 1 Tablet PO BID [facility] Sodium Chloride 10 - 40 ml 07/25/24 18:28 07/26/24 12:31 0.9% Saline Lock 10 Ml Syringe IV 10 ml UD PRN Administration SALINE FLUSH PFSH Medical History Polyneuropathy PVD (peripheral vascular disease) [...] spray budesonide 0.5 mg/2 mL suspension mg copy writer 07/25/24 Unkn own History for nebulization bupropion [...] MD Cosigner Signature: Date CC: ~ Signed [facility] Work Phone: 1(254) 374-909606-17-2025 Consult note [facility] Medical Records Department [address] [place] [address] Anesthesia Postop Eval I 07/26/241831 MR#: [id number] Acct: [id number] Name: KATHERINE JUDGE Rep #:[id number] : 1935 89 From: Florentin Cameron CRNA PCP: Dr. Kam Ocampo SrLeigh, DO Status:A DM IN Y Race: C Location: [place] [address] Anesthesia: Postop Eval I Current Vital Signs [...] Postop Eval 1 completed: Yes 07/26/241832 II LOCKER ROOM ATTENDANT> Date _ Florentin Clemens II LOCKER ROOM ATTENDANT Cosigner Signature: Date CC: ~ Signed [facility]06-17-2025 Procedure note [facility] Medical Records Department [address] [place] [address] Operative Report 07/26/24 1818 MR#: [id number] Acct: [id number] Name: KATHERINE JUDGE Rep #:[id number] : 1935 89 From: Thanh Mclaughlin DO PCP: Dr. Kam Ocampo Sr., DO Status:A DM IN Location: [facility] MU799-4 Operative Report (Standard) Operative Information Date of Procedure: 07/26/24 Pre-Operative Diagnosis: Right hip intertrochanteric femur fracture Post-Operative Diagnosis: Same Surgery/Procedure Performed: Right hip cephalomedullary fixation crown ironer: No Type of Anesthesia: General RN Documented [...] irrigated the fascia was closed with #1 [id number] Vicryls followed by 2-0 Vicryl in the [...] Intertrochanteric femur fracture Complications Complications: No 07/26/24 2290 Cosigner Signature (if applicable): CC: Dr. Hayden Diaz, DO; Dr. Kam Ocampo Sr., DO; Dr. Thanh Mclaughlin, DO~ Signed [facility]06-17-2025 Progress note Author Neymar Cunningham [facility] Note Date/Time July 26, 2024 3:30 pm [facility] Medical Records Department [address] [place] [address] Progress Note - Hospitalist 07/26/24 1018 MR#: [id number] Acct: [id number] Name: KATHERINE JUDGE Rep #:[id number] : 1935 89 From: Neymar Herrera PCP: Dr. Kam Ocampo Sr., DO Status:A DM IN Location: [address] Reason for Visit Reason for Visit: [...] % (Auto) 69.2, Lymph % (Auto) 22.9, Williamson % (Auto) 6.2, Eos % (Auto) 0.9, [...] Clarity Clear, Urine pH 8.0, Ur Specific [place] 1.010, Urine Protein 30 H, Urine Glucose [...] 151 H, Calcium 8.9, Troponin T Hi Lusr6Zm 25 H, TSH 2.060, Blood Type O POSITIVE, Antibody Screen NEGATIVE Radiography Diagnostic Testing: Radiology Impression Hip/Pelvis X-Ray 07/25/24 15:10 IMPRESSION: Nondisplaced right intertrochanteric fracture of the proximal right femur. [facility] Chest X-Ray 07/25/24 15:15 IMPRESSION: Cardiomegaly and vascular congestion with atelectasis at the lung bases. Reading Location: [facility] Femur X-Ray 07/25/24 17:40 IMPRESSION: Nondisplaced intertrochanteric fracture. Reading Location: [id number] Echocardiogram 07/25/24 22:20 Interpretation Summary Hypermobile atrial septum. Normal LV size. Left ventricular systolic function is normal. The left ventricular ejection fraction is 70 %. Stage 1 diastolic dysfunction. Mild-Moderate (1-2+) anteriorly directed mitral valve insufficiency. Posterior leaflet mitral valve prolapse. Moderate pulmonary hypertension. Ordering Physician: Hayden Diaz Referring Physician: Kam Ocampo Performed By: Celeste Gore, ELENITACS, RVT Physical Exam Const Constitutional Narrative: Seen and examined. Patient states that she uses oxygen as needed care home. Uses CPAP diligently at night. Denies chest [...] is an 89-year-old female who presented to [facility] ED on 07/25/2024 with right hip pain [...] Patient on home oxygen as needed in care home but required 4 L at time of [...] PT/OT/case management consulted as above. Lives in [facility], will likely be okay to return there [...] of the proximal right femur. Reading Location[facility] Chest X-Ray 07/25/24 15:15 IMPRESSION: Cardiomegaly and vascular congestion with atelectasis at the lung bases. Reading Location: [facility] Femur X-Ray 07/25/24 17:40 IMPRESSION: Nondisplaced intertrochanteric fracture. Reading Location: [id number] Echocardiogram 07/25/24 22:20 Interpretation Summary Hypermobile atrial [...] is 35 minutes. Visit Charges Inpatient E&M: 38877 Subs Hosp L3 07/26/24 1530 <Electronically signed by Neymar Cunningham MD> Cosigner Signature (if applicable): CC: ~ Signed [facility] Work Phone: 1(749) 928-270006-17-2025 Consult note [facility] Medical Records Department [address] [place] [address] Pre-Anesthesia Evaluation 07/26/24 1622 MR#: [id number] Acct: [id number] Name: KATHERINE JUDGE Rep #:[id number] : 1935 89 From: Rocky Sidhu MD PCP: Dr. Kam Ocampo Sr., DO Status:A DM IN Y Race: C Location: [facility] MS316 -1 ASA Classification* ASA Classification ASA [...] Patient on home oxygen as needed in care home but required 4 L at time of [...] ortho note) Anesthesia History Anesthesia History - solid waste technician: Anesthesia History - solid waste technician Hx Hospitalization Any Problems With Anesthesia No [...] take am of surgery PONV PONV - solid waste technician: PONV - solid waste technician Female HX of Motion Sickness HX of N/V After Surgery Non-Smoker Duration of Surgery greater than 60 minutes Number of Risk Factors PONV Score Height & Weight Height & Weight: Anesthesia: Height & Weight Height 5 ft 07/26/24 13:46 Weight: 48.534 kg 07/26/24 13:46 Body Mass Index (BMI) 20.9 07/26/24 13:46 Respiratory Assessment Respiratory Assessment - solid waste technician: Respiratory Tract Infection Hx - solid waste technician Hx Respiratory Tract Infection No 07/26/24 03:31 STOP Sleep Apnea STOP Sleep Apnea - solid waste technician: STOP Sleep Apnea - solid waste technician Hx Hypertension Yes 07/25/24 18:26 Hx Sleep [...] Tobacco Use History Tobacco Use History - solid waste technician: Tobacco Use History - solid waste technician Tobacco Use Smoking Status Never smoker 07/25/24 18:26 Hx Tobacco Use No 07/25/24 18:26 Years Smoking Packs Smoked per Day Smoking Cessation Date was No - quit smoking greater 07/25/24 18:26 within the last 15 years than 15 years ago Hx Smoking Cessation Date Hx Smoking Cessation Counseling Hematologic Medial History Hematologic Hx - solid waste technician: Hematologic Medical Hx - documentation coordinator Hx of Blood Transfusion Yes 07/25/24 18:26 [...] confused, unrespo /Reproduction History /Reproductive History - solid waste technician: /Reproductive Hx- solid waste technician Hx Now No 07/26/24 03:31 Gestational Age [...] 20 Mg Tablet PO Not Given DAILY [facility] Protocol Hydromorphone HCl 0.5 mg 07/25/24 20:49 07/25/24 22:16 Hydromorphone 0.5 Mg/0.5 Ml Syringe IV 0.5 mg Q4H PRN PRN Administration Pain Score 6-10 Sodium Chloride 250 mls @ 15 mls/hr 07/25/24 18:28 IV .[id number] PRN Saline Flush Sodium Chloride 250 mls @ 15 mls/hr 07/25/24 18:28 IV .[id number] PRN Additional IVPB Infusion Lactated Ringer's 1,000 mls @ 15 mls/hr 07/26/24 15:45 IV .Q48H [facility] Vancomycin HCl 1,000 mg in 200 mls @ 200 mls/hr 07/26/24 15:57 Vancomycin IV 07/26/24 16:56 PREOP ONE Isosorbide Mononitrate 30 mg 07/26/24 10:00 Isosorbide Mononitrate 30 Mg Tablet PO DAILY [facility] Protocol Loratadine 10 mg 07/26/24 10:00 07/26/24 08:23 Loratadine 10 Mg Tablet PO Not Given DAILY [facility] Melatonin 3 mg 07/25/24 22:00 Melatonin 3 Mg Tablet PO QHS PRN PRN INSOMNIA Metoprolol Tartrate 25 mg 07/25/24 22:00 07/26/24 09:13 Metoprolol Tartrate 25 Mg Tablet PO Not Given BID [facility] Protocol Mirtazapine 30 mg 07/25/24 22:00 07/25/24 22:25 Mirtazapine 30 Mg Tablet PO 30 mg QHS [facility] Administration Montelukast Sodium 10 mg 07/26/24 10:00 07/26/24 08:23 Montelukast 10 Mg Tablet PO Not Given DAILY [facility] Multivitamins 1 tablet 07/26/24 08:00 07/26/24 08:23 Multivitamins,Therapeutic Tablet PO Not Given DAILYCM [facility] Ondansetron HCl 4 mg 07/25/24 18:26 07/26/24 12:31 Ondansetron 4 Mg/2 Ml Vial IV 4 mg Q8H PRN PRN Administration NAUSEA/VOMITING Oxycodone HCl 5 mg 07/25/24 18:26 07/26/24 10:54 Oxycodone 5 Mg Tablet PO 5 mg Q4H PRN PRN Administration Pain Score 6-10 Pantoprazole Sodium 40 mg 07/26/24 10:00 07/26/24 08:23 Pantoprazole Sodium 40 Mg Tablet PO Not Given DAILY [facility] Potassium Chloride 20 meq 07/26/24 10:00 07/26/24 08:23 Potassium Chloride Oral Tablet 20 Meq PO Not Given DAILY [facility] Senna/Docusate Sodium 1 tablet 07/26/24 22:00 Senna/Docusate Sodium 1 Tablet PO BID [facility] Sodium Chloride 10 - 40 ml 07/25/24 18:28 07/26/24 12:31 0.9% Saline Lock 10 Ml Syringe IV 10 ml UD PRN Administration SALINE FLUSH PFSH Medical History Polyneuropathy PVD (peripheral vascular disease) [...] spray budesonide 0.5 mg/2 mL suspension mg copy writer 07/25/24 Unkn own History for nebulization bupropion [...] diaphoretic 07/26/24 1641 > Date _ Rocky Dodson Signature: Date CC: ~ Signed [facility]06-17-2025 Progress note [facility] Medical Records Department [address] [place] [address] Progress Note - Hospitalist 07/26/24 1018 MR#: [id number] Acct: [id number] Name: KATHERINE JUDGE Rep #:[id number] : 1935 89 From: Neymar Herrera PCP: Dr. Kam Ocampo Sr., DO Status:A DM IN Location: [address] Reason for Visit Reason for Visit: [...] % (Auto) 69.2, Lymph % (Auto) 22.9, Williamson % (Auto) 6.2, Eos % (Auto) 0.9, [...] Clarity Clear, Urine pH 8.0, Ur Specific [place] 1.010, Urine Protein 30 H, Urine Glucose [...] 151 H, Calcium 8.9, Troponin T Hi [id number] 25 H, TSH 2.060, Blood Type O POSITIVE, Antibody Screen NEGATIVE Radiography Diagnostic Testing: Radiology Impression Hip/Pelvis X-Ray 07/25/24 15:10 IMPRESSION: Nondisplaced right intertrochanteric fracture of the proximal right femur. Reading Location: [facility] Chest X-Ray 07/25/24 15:15 IMPRESSION: Cardiomegaly and vascular congestion with atelectasis at the lung bases. Reading Location: [facility] Femur X-Ray 07/25/24 17:40 IMPRESSION: Nondisplaced intertrochanteric fracture. Reading Location: [id number] Echocardiogram 07/25/24 22:20 Interpretation Summary Hypermobile atrial [...] states that she uses oxygen as needed care home. Uses CPAP diligently at night. Denies chest [...] is an 89-year-old female who presented to [facility] ED on 07/25/2024 with right hip pain after a mechanical fall. 1. Acute debility due to right hip nondisplaced intertrochanteric fracture: [facility]. Hip and pelvis x-rays reviewed and [...] Patient on home oxygen as needed in care home but required 4 L at time of [...] PT/OT/case management consulted as above. Lives in [facility], will likely be okay to return there [...] of the proximal right femur. Reading Location: [facility] Chest X-Ray 07/25/24 15:15 IMPRESSION: Cardiomegaly and vascular congestion with atelectasis at the lung bases. Reading Location: [facility] Femur X-Ray 07/25/24 17:40 IMPRESSION: Nondisplaced intertrochanteric fracture. Reading Location: [id number] Echocardiogram 07/25/24 22:20 Interpretation Summary Hypermobile atrial [...] is 35 minutes. Visit Charges Inpatient E&M: 89632 Subs Hosp L3 07/26/24 1530 Cosigner Signature (if applicable): CC: ~ Signed [facility]06-17-2025 Discharge summary Author Jacobo Moya [facility] Note Date/Time July 25, 2024 11:[address] [facility] Medical Records Department [address] [place] [address] Emergency Department Summary 07/25/24 MR#: [id number] Acct: [id number] Name: KATHERINE JUDGE Rep #:[id number] : 1935 89 From: Jacobo Palmer PCP: Dr. Kam Ocampo Sr., Status:A DM IN [facility] HPI HPI - Fall History of Present [...] of consciousness. Patient denies any other injuries. [facility] Medical History (Updated 07/25/24 @ 17:08 [...] % (Auto) 69.2 Lymph % (Auto) 22.9 Williamson % (Auto) 6.2 Eos % (Auto) 0.9 [...] of the proximal right femur. Reading Location: [facility] Chest X-Ray 07/25/24 15:15 IMPRESSION: Cardiomegaly and vascular congestion with atelectasis at the lung bases. Reading Location: [facility] Portable 1 view chest x-ray was obtained. [...] sinus rhythm with a rate of 66. NC interval was normal at 170 ms. QRS interval was prolonged at 144 ms. QTc interval was slightly prolonged at 484 ms. There is borderline right axis deviation at 105. There is a right bundle branch block pattern noted. There are nonspecific ST-T wave changes noted. Prior EKG tracings: not available for review Prior: No Prior Management Discussion w/another healthcare provider: Hospitalist and Spinner Continuous Treatment and Re-Evaluation Narrative: Patient was advised [...] pressure reading Disposition Disposition: Acute Care Hospital [facility] What to do if you have Problems For any increased pain, shortness of breath, bleeding, nausea or vomiting, chestpain, or any unexpected problems, contact your Primary Care Provider. Call [facility] ([phone]) or report to the closest Emergency Room. Call 911 if necessary. 07/25/248 <Electronically signed by Jacobo Moya DO> Cosigner Signature (if applicable): CC: Dr. Kam Ocampo Sr., DO ~ Signed [facility] Work Phone: 1(280) 364-698106-17-2025 History and physical note Author Hayden Diaz [facility] Note Date/Time July 25, 2024 10:[address] [facility] Medical Records Department [address] [place] [address] H&P Exam - Hospitalist 07/25/24 1651 MR#: [id number] Acct: [id number] Name: DERICKKATHERINE N Rep #:[id number] : 1935 89 From: Hayden malik DO PCP: Dr. Kam Ocampo Sr., DO Status:A DM IN Location: MS3 [id number] HPI - General General Date of Admission: 07/25/24 Date of Service: 07/25/24 Chief Complaint: Fall with right hip pain HPI Narrative KATHERINE JUDGE, is a 89 F who presented to [facility] ED on 07/25/2024 with right hip pain after a fall. Patient has history of chronic debility, lives at the [facility]. She had a fall today where shewas [...] currently. Will be admitted for further management. [facility] Medical History (Updated 07/25/24 @ 22:18 by [...] spray budesonide 0.5 mg/2 mL suspension mg copy writer 07/25/24 Unkn own History for nebulization bupropion [...] % (Auto) 69.2, Lymph % (Auto) 22.9, Williamson % (Auto) 6.2, Eos % (Auto) 0.9, [...] of the proximal right femur. Reading Location: [facility] Chest X-Ray 07/25/24 15:15 IMPRESSION: Cardiomegaly and vascular congestion with atelectasis at the lung bases. Reading Location: [facility] Assessment & Plan Assessment/Plan (1) Closed intertrochanteric fracture of right hip: QUALIFIERS: Encounter type: initial encounter Fracture alignment: displaced Qualified Code(s): S72.141A - Displaced intertrochanteric fracture of right femur, initial encounter for closed fracture (2) Acute on chronic heart failure with preserved ejection fraction (HFpEF): PLAN: Plan Patient is an 89-year-old female who presented to [facility] ED on 07/25/2024 with right hip pain after a mechanical fall. 1. Right hip fracture ? Admit under inpatient status to [facility]. Orthopedic surgery consulted. PT/OT/case management [...] PT/OT/case management consulted as above. Lives in [facility], will likely be okay to return there on discharge. 5. Mild chronic anemia ? Hemoglobin stable at baseline 10-11 on admission. 6. Anxiety/depression ? Stable. Continue home bupropion and mirtazapine. 7. GERD ? Continue home PPI. DVT prophylaxis: SCDs CODE STATUS: DNR CCA, DNI Expected disposition: Likely back to care home, D Total clinical time spent by myself addressing the patient's medical issues, reviewing all the data, and collaborating with patient's care team: 75 minutes. Charges/Coding Visit Charges Inpatient E&M: 79667 Init Hosp L3 07/25/24 2220 <Electronically signed by Hayden Diaz DO> Cosigner Signature (if applicable): CC: Dr. Hayden Diaz, DO; Dr. Kam Ocampo Sr., DO~ Signed [facility] Work Phone: 1(141) 256-148806-16-2025 Discharge summary [facility] Medical Records Department [address] [place] [address] Emergency Department Summary 07/25/24 MR#: [id number] Acct: [id number] Name: KATHERINE JUDGE Rep #:[id number] : 1935 89 From: Jacobo Palmer PCP: Dr. Kam Ocampo Sr., DO Status:A DM IN [facility]7 HPI HPI - Fall History of Present [...] of consciousness. Patient denies any other injuries. [facility] Medical History (Updated 07/25/24 @ 17:[address] Thanh Mclaughlin ) Polyneuropathy PVD (peripheral vascular disease) Osteoporosis [...] % (Auto) 69.2 Lymph % (Auto) 22.9 Williamson % (Auto) 6.2 Eos % (Auto) 0.9 [...] of the proximal right femur. Reading Location: [facility] Chest X-Ray 07/25/24 15:15 IMPRESSION: Cardiomegaly and vascular congestion with atelectasis at the lung bases. Reading Location: [facility] Portable 1 view chest x-ray was obtained. [...] normal sinus rhythm with arate of 66. NC interval was normal at 170 ms. QRS interval was prolonged at 144 ms. QTc interval was slightly prolonged at 484 ms. There is borderline right axis deviation at 105. There is a right bundle branch block pattern noted. There are nonspecific ST-T wave changes noted. Prior EKG tracings: not available for review Prior: No Prior Management Discussion w/another healthcare provider: Hospitalist and Spinner Continuous Treatment and Re-Evaluation Narrative: Patient was advised [...] pressure reading Disposition Disposition: Acute Care Hospital [facility] What to do if you have Problems For any increased pain, shortness of breath, bleeding, nausea or vomiting, chestpain, or any unexpected problems, contact your Primary Care Provider. Call [email or web address] [facility] ([phone]) or report tothe closest Emergency Room. Call 911 if necessary. 07/25/24 6571 Cosigner Signature (if applicable): CC: Dr. Kam Ocampo Sr., DO ~ Signed [facility]06-16-2025 History and physical note [facility] Medical Records Department [address] [place] [address] H&P Exam - Hospitalist 07/25/24 1651 MR#: [id number] Acct: [id number] Name: KATHERINE JUDGE Rep #:[id number] : 1935 89 From: Hayden malik DO PCP: Dr. Kam Ocampo Sr., Status:A DM IN Location: [facility] [id number] HPI - General General Date of Admission: 07/25/24 Date of Service: 07/25/24 Chief Complaint: Fall with right hip pain HPI Narrative KATHERINE JUDGE, is a 89 F who presented to [facility] ED on 07/25/2024 with right hippain after a fall. Patient has history of chronic debility, lives at the [facility]. She had a fall today where shewas [...] currently. Will be admitted for further management. [facility] Medical History (Updated 07/25/24 @ 22:18 by [...] spray budesonide 0.5 mg/2 mL suspension mg copy writer 07/25/24 Unkn own History for nebulization bupropion [...] % (Auto) 69.2, Lymph % (Auto) 22.9, Williamson % (Auto) 6.2, Eos % (Auto) 0.9, [...] of the proximal right femur. Reading Location: [facility] Chest X-Ray 07/25/24 15:15 IMPRESSION: Cardiomegaly and vascular congestion with atelectasis at the lung bases. Reading Location: [facility] Assessment & Plan Assessment/Plan (1) Closed intertrochanteric fracture of right hip: QUALIFIERS: Encounter type: initial encounter Fracture alignment: displaced Qualified Code(s): S72.141A - Displaced intertrochanteric fracture of right femur, initial encounter for closed fracture (2) Acute on chronic heart failure with preserved ejection fraction (HFpEF): PLAN: Plan Patient is an 89-year-old female who presented to [facility] ED on 07/25/2024 with right hip pain after a mechanical fall. 1. Right hip fracture ? Admit under inpatient status to [facility]. Orthopedic surgery consulted. PT/OT/case management [...] PT/OT/case management consulted as above. Lives in [facility], will likely be okay to return there on discharge. 5. Mild chronic anemia ? Hemoglobin stable at baseline 10-11 on admission. 6. Anxiety/depression ? Stable. Continue home bupropion and mirtazapine. 7. GERD ? Continue home PPI. DVT prophylaxis: SCDs CODE STATUS: DNR CCA, DNI Expected disposition: Likely back to care home, TBD Total clinical time spent by myself addressing the patient's medical issues, reviewing all the data, and collaborating with patient's care team: 75 minutes. Charges/Coding Visit Charges Inpatient E&M: 97087 Init Hosp L3 07/25/243 Cosigner Signature (if applicable): CC: Dr. Hayden Diaz, DO; Dr. Kam Ocampo Sr., DO~ Signed [facility]06-16-2025 Radiology Diagnostic study note [facility] Imaging Services [address] [place], [place] [address] Femur Min 2 Views MR#: [id number] Acct: [id number] Name: KATHERINE JUDGE Rep #: [id number] : 1935 F 89 From: Brannon Bland MD PCP: Dr. Kam Ocampo Sr., DO Status: A DM IN Study:Femur Min 2 Views Date of Exam: Exam# [id number] Ordering Dr: Thanh Mclaughlin DO PROCEDURE: FEMUR MIN 2 VIEWS 07/25/2024 REASON FOR EXAM: FRACTURE SURGERY PLANNING TECHNIQUE: FEMUR MIN 2 VIEWS COMPARISON: 07/25/2024 radiograph. FINDINGS: Right knee arthroplasty. Nondisplaced intertrochanteric fracture of the right femur. Degenerative changes of the right hip. RAD/Femur Min 2 Views IMPRESSION: Nondisplaced intertrochanteric fracture. Reading Location: [id number] CC: Dr. Kam Ocampo Sr., ; Dr. Thanh Mclaughlin DO ~ Safety Admin Assistant: Signed [facility]06-16-2025 Consult note Author Thanh Mclaughlin [facility] Note Date/Time July 25, 2024 5:[address] [facility] Medical Records Department [address] [place] [address] Consultation 07/25/24 1706 MR#: [id number] Acct: [id number] Name: KATHERINE JUDGE Rep #:[id number] : 1935 89 From: Thanh Mclaughlin DO PCP: Dr. Kam Ocampo Sr., Status:R EG ER Location: ED Assessment & [...] years ago with Dr. Malcom Herron in [facility]. She is on Plavix [facility] Medical History (Updated 07/25/24 @ [...] her son who is her power of trademark attorney Appearance: cooperative Extremity Extremity Narrative: Exquisitely [...] % (Auto) 69.2, Lymph % (Auto) 22.9, Williamson % (Auto) 6.2, Eos % (Auto) 0.9, [...] of the proximal right femur. Reading Location: [facility] Chest X-Ray 07/25/24 15:15 IMPRESSION: Cardiomegaly and vascular congestion with atelectasis at the lung bases. Reading Location: [facility] 07/25/24 1710 <Electronically signed by Thanh Mclaughlin DO> Cosigner Signature (if applicable): CC: Dr. Kam Ocampo Sr., DO~ Signed [facility] Work Phone: 1(523) 236-533006-16-2025 Evaluation note* Diagnosis Onset Date Resolution Status Admit Date 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) acute July 25, 2024 4:51pm Closed intertrochanteric fra cture of right hip acute July 25, 2024 4:51pm Elevated blood pressure reading acut e July 25, 2024 4:51pm Fall acute July 25 4:51pm [facility] Work Phone: 1(567) 298-234606-16-2025 Evaluation note* Diagnosis Onset Date Resolution Status [...] 5:20pm GI bleed acute August 02 5:20pm [facility] Work Phone: 1(633) 312-142706-16-2025 Evaluation note* Diagnosis Onset Date Resolution Status Admit Date Closed intertrochanteric fra cture of right hip acute July 25, 2024 4:51pm Elevated blood pressure reading acut e July 25, 2024 4:51pm Fall acute July 25 4:51pm 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) resolved July 25, 2024 4:51pm GI bleed acute August 02 5:20pm Altered mental status resolved Jul 5:20pm Anemia inactive August 02 5:20pm [facility] Work Phone: 1(971) 771-841806-16-2025 Evaluation note* Diagnosis Onset Date Resolution Status Admit Date Closed intertrochanteric fra cture of right hip acute July 25, 2024 4:51pm Elevated blood pressure reading acut e July 25, 2024 4:51pm Fall acute July 25 4:51pm 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) resolved July 25, 2024 4:51pm GI bleed acute August 02 5:20pm Altered mental status resolved Jul 5:20pm Anemia inactive August 02 5:20pm Closed intertrochanteric fra cture of right hip acute August 17, 2024 8 :49am History of total right knee replacement acute August 17, 2024 8 :49am Knee pain, right acute August 8:49am Orthopedic aftercare acute August 17, 2024 8:49am [facility] Work Phone: 1(830) 221-917306-16-2025 Consult note [facility] Medical Records Department [address] [place] [address] Consultation 07/25/24 1706 MR#: [id number] Acct: [id number] Name: KATHERINE JUDGE Wilber Rep #:[id number] : 1935 89 From: Thanh Mclaughlin DO PCP: Dr. Kam Ocampo SrLeigh, DO Status:R EG ER Location: ED Assessment [...] years ago with Dr. Malcom Herron in [facility]. She is on Plavix [facility] Medical History (Updated 07/25/24 @ [...] her son who is her power of trademark attorney Appearance: cooperative Extremity Extremity Narrative: Exquisitely [...] % (Auto) 69.2, Lymph % (Auto) 22.9, Williamson % (Auto) 6.2, Eos % (Auto) 0.9, [...] of the proximal right femur. Reading Location: [facility] Chest X-Ray 07/25/24 15:15 IMPRESSION: Cardiomegaly and vascular congestion with atelectasis at the lung bases. Reading Location: [facility] 07/25/24 1710 Cosigner Signature (if applicable): CC: Dr. Kam Ocampo Sr., DO~ Signed [facility]06-16-20[facility] Radiology Diagnostic study note [facility] Imaging Services [address] [place], [place] [address] Chest 1 View (Portable) MR#: [id number] Acct: [id number] Name: KATHERINE JUDGE Rep #: [id number] : 1935 F 89 From: Reyes Haynes MD PCP: Dr. Kam Ocampo Sr., DO Status: R EG ER Study:Chest 1 View (Portable) Date of Exam: 07/25/24 Exam# [id number] Ordering Dr: Jacobo Moya DO PROCEDURE: CHEST [...] atelectasis at the lung bases. Reading Location: [place] [address] CC: Dr. Kam Ocampo Sr., DO; Dr. Jacobo Moya, ~ Safety Admin Assistant: Signed [facility]06-16-2025 Radiology Diagnostic study note [facility] Imaging Services [address] [place] [address] HIP, UNI W/ Pelvis 2-3 Views MR#: [id number] Acct: [id number] Name: KATHERINE JUDGE Rep #: [id number] : 1935 F 89 From: Reyes Haynes MD PCP: Dr. Kam Ocampo Sr., DO Status: R EG ER Study:HIP, UNI W/ Pelvis 2-3 Views Date of Ex am: 07/25/24 Exam# [id number] Ordering Dr: Jacobo Moya DO PROCEDURE: HIP, [...] of the proximal right femur. Reading Location: [place] [address] CC: Dr. Kam Ocampo Sr., DO; Dr. Jacobo Moya DO ~ Safety Admin Assistant: Signed [facility]09-28-2023 Discharge summary Author Yandelkushal Matute [facility] November 06, 2022 8:16pm Note Date/Time November 06, 2022 8:17pm [facility] Medical Records Department [address] [place] [address] Emergency Department Summary 11/06/22 MR#: [id number] Acct: [id number] Name: KATHERINE JUDGE Rep #:[id number] : 1935 87 From: Yandel Matute DO PCP: Dr. Kam Ocampo Sr., DO [...] concern for TIA. Patient is on Plavix. [facility] Medical History Age-related physical debility Atherosclerotic heart disease of [place] coronary artery without angina pectoris Calculus of [...] % (Auto) 60.8 Lymph % (Auto) 29.3 Williamson % (Auto) 7.4 Eos % (Auto) 1.6 [...] Clarity Clear Urine pH 7.0 Ur Specific [place] 1.010 Urine Protein Negative Urine Glucose (UA) [...] 18:11 EDT Reading Location ID and State: [facility] / [place] Tel , Service support , ADDENDUM: 11/06/22 1820 IMPRESSION: Volume loss with chronic white matter changes. No acute intracranial findings. N.B. : The above Results were Read Back by Santos Neal MD to Yandel Matute MD, and understanding confirmed on 11/06/2022 18:18:30 (ET). Electronically Signed: Santos Neal MD at 18:11 EDT , Chest X-Ray 11/06/22 17:55 IMPRESSION: Bibasilar infiltrates with right basilar consolidation, findings unchanged from prior chest x-ray. Recommend short-term follow-up for resolution. Electronically Signed: Santos Neal MD at 18:13 EDT , Discharge Plan Triage Chief Complaint: Neuro [...] your Primary Care Provider. Call [facility] ([phone]) or report to the closest Emergency Room. Call 911 if necessary. 11/06/222015 <Electronically signed by Yandel Matute DO> Cosigner Signature (if applicable): CC: Dr. Kam Ocampo Sr., ~ Signed [facility] Work Phone: 1(328) 155-294509-23-2023 Progress note Author Neymar Cunningham [facility] November 01, 2022 2:44pm Note Date/Time November 01, 2022 7:47am [facility] System Medical Records Department [address] [place] [address] Progress Note - Hospitalist 11/01/2245 MR#: [id number] Acct: [id number] Name: KATHERINE JUDGE Rep #:[id number] : 1935 87 From: Neymar Herrera PCP: [...] 22:21 EDT Reading Location ID and State: [address] [place] [address] Tel [phone], Service support , Physical Exam Narrative Seen [...] CAD, hypertension and depression who presented to [facility] ED from care home on 10/30/2022 for expressive aphasia and dysarthria. [...] of ASD; bubble contrast study negative for suuet-pt-frvl interatrial shunt. LA severely enlarged. EF 70%. MRI brain reports no acute or subacute ischemic infarct or acute intracranial abnormality. SOC consult ordered 2. Chronic debility Patient's family notes that she was recently hospitalized at an outside hospitalfor medical concerns unrelated to current concern for acute CVA. She was discharged to a retirement facility, with plans for long-term placement in a care home after that. Has been residing at the [facility], and family has been happy with this arrangement. ? PT/OT/case management consulted. Fall precautions in place. Chronic medical conditions: ? Hypertension, history of CAD: Continue home metoprolol, isosorbide mononitrate, Lasix, potassium supplement, doxazosin. ? Depression: Continue home bupropion, mirtazapine at night. DVT prophylaxis: SCDs CODE STATUS: DNR CCA, DO NOT INTUBATE Expected disposition: Long-term care facility Charges/Coding Visit Charges Inpatient E&M: 01317 Subs Hosp L3 11/01/22 1444 <Electronically signed by Neymar Cunningham MD> Cosigner Signature (if applicable): CC: ~ Signed [facility] Work Phone: 1(341) 302-431509-22-2023 Progress note Author Neymar Cunningham [facility] October 31, 2022 12:03pm Note Date/Time October 31, 2022 11:13am [facility] Medical Records Department [address] [place] [address] Progress Note - Hospitalist 10/31/22 1111 MR#: [id number] Acct: [id number] Name: KATHERINE JUDGE Rep #:[id number] : 1935 87 From: Neymar Herrera PCP: [...] % (Auto) 55.1, Lymph % (Auto) 33.7, Williamson % (Auto) 8.1, Eos % (Auto) 2.1, [...] Clarity Clear, Urine pH 8.0, Ur Specific [place] 1.010, Urine Protein Negative, Urine Glucose (UA) [...] CAD, hypertension and depression who presented to [facility] ED from care home on 10/30/2022 for expressive aphasia and dysarthria. [...] acute CVA. She was discharged to a retirement facility, with plans for long-term placement in a care home after that. Has been residing at the [facility], and family has been happy with this arrangement. ? PT/OT/case management consulted. Fall precautions in place. Chronic medical conditions: ? Hypertension, history of CAD: Continue home metoprolol, isosorbide mononitrate, Lasix, potassium supplement, doxazosin. ? Depression: Continue home bupropion, mirtazapine at night. DVT prophylaxis: SCDs CODE STATUS: DNR CCA, DO NOT INTUBATE Expected disposition: Long-term care facility Charges/Coding Visit Charges Inpatient E&M: 90182 Subs Hosp L3 10/31/22 1203 <Electronically signed by Neymar Cunningham MD> Cosigner Signature (if applicable): CC: ~ Signed [facility] Work Phone: 1(157) 368-733809-22-2023 Consult note Author Ajay Nieves [facility] October 31, 2022 9:32am Note Date/Time October 31, 2022 7:12am [facility] Medical Records Department [address] [place] [address] Consultation - Turner In 10/31/22 0711 MR#: [id number] Acct: [id number] Name: KATHERINE JUDGE Rep #:[id number] : 1935 87 From: Ajay Nieves DO [...] medicationsas indicated. This note was generated with AutoUncle dictation software. It may contain incorrectwords, spelling, [...] depression. She was currently residing at the [facility]. On presentation to the emergency department, [...] medical intensive care unit for further management. [facility] Medical History (Updated 10/30/22 @ 21:30 by Andrews Chou) Age-related physical debility Atherosclerotic heart disease of [place] coronary artery without angina pectoris Calculus of [...] % (Auto) 55.1, Lymph % (Auto) 33.7, Williamson % (Auto) 8.1, Eos % (Auto) 2.1, [...] Clarity Clear, Urine pH 8.0, Ur Specific [place] 1.010, Urine Protein Negative, Urine Glucose (UA) [...] EDT , Charges/Coding Visit Charges Inpatient E&M: 38035 Init Hosp L3 10/31/22 0932 <Electronically signed by Ajay Nieves DO> Cosigner Signature (if applicable): CC: Dr. Hayden Diaz, DO; Dr. Kam Ocampo Sr., DO~ Signed [facility] Work Phone: 1(664) 376-468309-22-2023 History and physical note Author Hayden Diaz [facility] October 31, 2022 3:59am Note Date/Time October 30, 2022 9:19pm [facility] System Medical Records Department [address] [place] [address] H&P Exam - Hospitalist 10/30/222115 MR#: [id number] Acct: [id number] Name: KATHERINE JUDGE Rep #:[id number] : 1935 87 From: Hayden malik DO PCP: Dr. Kam Ocampo Sr., Status:A DM IN Location: ICU CVICU20 3-1 HPI - General General Date of Admission: 10/30/22 Date of Service: 10/30/22 Chief Complaint: Acute CVA HPI Narrative KATHERINE JUDGE, is a 87 F with history of chronic debility, TIA, CAD, hypertension and depression who presented to [facility] ED from care home on 10/30/2022 as a stroke alert. Patient [...] for hospitalization. She was discharged to the [facility] with plan for long-term placement in [...] head/neck was negative for any acute pathology. [facility] Medical History (Updated 10/30/22 @ 21:30 by Andrews Chou) Age-related physical debility Atherosclerotic heart disease of [place] coronary artery without angina pectoris Calculus of [...] % (Auto) 55.1, Lymph % (Auto) 33.7, Williamson % (Auto) 8.1, Eos % (Auto) 2.1, [...] CAD, hypertension and depression who presented to [facility] ED from care home on 10/30/2022 as a stroke alert. 1. [...] in her speech. ? Admit to ICU. Turner In consulted. Patient will require close monitoring over [...] acute CVA. She was discharged to a retirement facility, with plans for long-term placement in a care home after that. Has been residing at the [facility], and family has been happy with [...] 55 minutes. Charges/Coding Visit Charges Inpatient E&M: 33697 Init Hosp L2 10/31/22 0359 <Electronically signed by Hayden Diaz DO> Cosigner Signature (if applicable): CC: Dr. Hayden Diaz, DO; Dr. Kam Ocampo Sr., DO~ Signed [facility] Work Phone: 1(678) 763-948509-22-2023 Discharge summary Author [facility] October 31, 2022 12:06am Note Date/Time October 30, 2022 8:12pm [facility] System Medical Records Department [address] [place] [address] Emergency Department Summary 10/30/22 MR#: [id number] Acct: [id number] Name: KATHERINE JUDGE Rep #:[id number] : 1935 87 From: Amalia Donahue DO PCP: Dr. Kam Ocampo Sr., DO Status:A DM IN Location: ICU CVICU20 3-1 HPI History of Present Illness Chief Complaint: Stroke Alert Detail of Chief Complaint: Stroke Informant: patient, family and EMS Narrative Narrative: Patient presents to the emergency department via EMS from care home. Patientwas last seen well about 1840 5 PM. When she was next checked on she had difficulty with speech and seemed to be confused. Patient has history of prior TIA and history of coronary artery disease as well as hypertension. Patient recently was taken off her Plavix. Patient denies any chest pain. She denies headache. She has not had any falls or injuries. [facility] Medical History (Updated 10/30/22 @ 21:30 by Andrews Chou) Age-related physical debility Atherosclerotic heart disease of [place] coronary artery without angina pectoris Calculus of [...] patient has no unwell at 1820 per care home staff as I called personally to discuss [...] with patient's son who is power of estate attorney and also with patient and they [...] % (Auto) 55.1 Lymph % (Auto) 33.7 Williamson % (Auto) 8.1 Eos % (Auto) 2.1 [...] and neural foraminal stenosis. Electronically Signed: Carmelo DerickLeigh Eaton DO at 20:41 EDT , ADDENDUM: [...] 30-74 minutes, Including time spent:,Discussing w/Patient &/or Family/Workers' Compensation Magistrate, Discussing w/Consultants, ArrangingAdmission or Transfer, Performing Direct Patient Care at Bedside and - (30 minutes) Discharge Plan Dx/Rx/DC Orders Clinical Impression: Acute CVA (cerebrovascular accident), History of CAD (coronary artery disease),Hypertension Disposition Disposition: Acute Care Hospital [facility] Discharge Date/Time: 10/30/22 22:27 What to do if you have Problems For any increased pain, shortness of breath, bleeding, nausea or vomiting, chestpain, or any unexpected problems, contact your Primary Care Provider. Call [facility] ([phone]) or report to the closest Emergency Room. Call 911 if necessary. 10/31/22 0006 <Electronically signed by Amalia Donahue DO> Cosigner Signature (if applicable): CC: Dr. Kam Ocampo Sr., DO ~ Signed [facility] Work Phone: 1(366) 410-321809-07-2023 History of Present illness Narrative* Sophia Moreira RN - 10/16/2022 1:32 PM EDT Report called to [facility]. Nurse was informed of the supervisor sample preparation time of 1400. * Eder Monterroso MD - 10/15/2022 4:14 PM EDT Images from the original note were not included. Hospitalist Progress Note 10/15/2022 [phone]: Please secure chat me for patient care issues. [phone]: Please secure chat [facility] Hospitalist for any issues. Subjective: Admit Date: 10/10/2022 PCP: Saida Gardiner Room#: B2-259/B2-259 A Interval History: Patient is lying on the bed, abdominal pain continues to improve. Denies any nausea or vomiting. Tolerating p.o. diet well. Diarrhea also improved. No other significant overnight issues. Adult diet Regular; Low Fiber @UYEP7LIIEYX@ 24HR INTAKE/OUTPUT: Intake/Output Summary (Last 24 hours) [...] BMP: Recent Labs 10/13/22 0308 10/14/22 0144 10/15/225 NA 138 139 140 K 4.5 4.2 [...] Wt 105 lb 8 oz (47.9 kg) YpD510% BMI 20.60 kg/m Pulse Ox: SpO2 Av.5 [...] ordered. PT OT evaluated the patient recommended retirement facility. -am labs, replace lytes prn -increase activity -DVT prophylaxis: [] Lovenox [] Heparin [] SCDs [x] Encourage ambulation [] Already on Anticoagulation Anticipated Discharge - Date - tomorrow - Location -retirement facility - Pending the following -clinical improvement/placement Total time spent (which include face to face and non face to face encounters) : 25 minutes Toxic drug monitoring/narrow therapeutic index drug monitoring : # Drug name : # Route administered : # Method of monitoring : Extended Emergency Contact Information Primary Emergency Contact: Ganga Judge Mobile Relation: Son Preferred language: Ecuadorean Monotype Mechanic needed? No Eder Monterroso MD Division of Hospitalist Medicine [facility] PAGER: Epic chat * Brittni Javed, RD - 10/15/2022 2:49 PM EDT Nutrition Assessment [...] assess Fluid Accumulation: No significant fluid accumulation Foreign Language Interpreter Strength: Not Performed Nutrition Assessment: Pt is very pleasant, appeared in no distress this afternoon with visitor at bedside. Pt's diet was advanced to solids today- GI Fisher, low fiber. Pt reported that she ordered [...] (kg): 49.4 kg Total Energy Requirements (kcals/day): 6376-2026 (30-35 kcal/kg CBW) Weight Used for Protein [...] 110# UBW) % Weight Change (Calculated): -4.5 [place] Body Weight (lbs) (Calculated): 100 lbs [place] Body Weight (Kg) (Calculated): 45 kg % [place] Body Weight (Calculated): 105 % BMI (kg/m2) [...] Oral Nutrition Supplement Brittni Javed RD Contact: *[phone] or via Secure Chat * Hayden Steen [...] Wt 47.9 kg (105 lb 8 oz) OgM160% BMI 20.60 kg/m TEMPERATURE: Current - Temp: [...] note were not included. Hospitalist Progress Note 10/14/2022 [phone]: Please secure chat me for patient care issues. [phone]: Please secure chat [facility] Hospitalist for any issues. Subjective: Admit Date: 10/10/2022 PCP: Saida Gardiner Room#: B2-259/B2-259 A Interval History: Patient is lying on the bed, abdominal pain is better. Complaining of multiple episodes of diarrhea. Denies any nausea or vomiting. No other significant overnight issues. Adult diet Full liquid @TTLN9UMEZPT@ 24HR INTAKE/OUTPUT: No intake or output data [...] PLT 205 201 213 BMP: Recent Labs 10/12/2233 10/13/22 0308 10/14/22 0144 NA 141 138 [...] ordered. PT OT evaluated the patient recommended retirement facility. -am labs, replace lytes prn -increase activity -DVT prophylaxis: [] Lovenox [] Heparin [] SCDs [x] Encourage ambulation [] Already on Anticoagulation Anticipated Discharge - Date -1 to 2 days - Location -retirement facility - Pending the following -clinical improvement/placement Total time spent (which include face to face and non face to face encounters) : 25 minutes Toxic drug monitoring/narrow therapeutic index drug monitoring : # Drug name : # Route administered : # Method of monitoring : Extended Emergency Contact Information Primary Emergency Contact: Ganga Judge Mobile Relation: Son Preferred language: Ecuadorean Monotype Mechanic needed? No Eder Monterroso MD Division of Hospitalist Medicine Acute care [facility] PAGER: Epic chat * Laura Brown OT - 10/14/2022 11:34 AM EDT Occupational Therapy Facility/Department: [facility] 2E Occupational Therapy Initial Evaluation NAME: Katherine Judge : 1935 Date of Service: 10/14/2022 Discharge Recommendations: Fdc Facility OT Equipment Recommendations Equipment Needed: No [...] assistance Functional Mobility Comments: Pt ambualting with MENTAL HYGIENE CONSULTANT and min A for balance short distance to/from [facility] [place]. No true LOB noted however pt demo [...] ADLs, and min A with toileting at [facility] [place] [place] d/t fatigue level. [facility] [place] [place] with mod A for threading BLE d/t [...] needed Therapy Time Individual Co-treatment Time In 37 Time Out 0950 Minutes 13 POC supervision transferred to rehab service department occupational therapist. Laura Brown OT * Ron Vines, DO - 10/13/2022 2:25 PM EDT Images [...] were not included. Hospitalist Progress Note 10/13/2022 [phone]: Please page me ([phone]) for patient care issues. [phone]: Please page [facility] Hospitalist for any issues. Subjective: Admit [...] Ischemic colitis (HCC) LABS: CBC: Recent Labs 10/11/2233010/12/2263210/13/22 0308 WBC 15.1* 12.3* 7.8 RBC 3.59* [...] - 10/14 vs 10/15 - Location - [facility] - Pending the following - improvement in abdominal pain, regular Bowel movements. PNA workup, wean O2. Auth at [facility] Toxic drug monitoring/narrow therapeutic index drug monitoring : # Drug name : # Route administered : # Method of monitoring : Extended Emergency Contact Information Primary Emergency Contact: Ganga Judge Mobile Relation: Son Preferred language: Ecuadorean Monotype Mechanic needed? No Ranjeet Tobar DO Division of Hospitalist Medicine Inpatient Medical Services/[facility] PAGER: Epic chat * [place], PT - 10/12/2022 2:48 PM EDT Physical Therapy Facility/Department: [address] Physical Therapy Initial Evaluation NAME: Katherine Judge : 1935 Date of Service: 10/12/2022 Discharge Recommendations: Fdc Facility, Continue to assess pending progress PT [...] name. Increased arousal with mobility. Pt states Iwant to get up Patient Stated Goal: To [...] were not included. Hospitalist Progress Note 10/12/2022 [phone]: Please page me ([phone]) for patient care issues. [phone]: Please page [facility] Hospitalist for any issues. Subjective: Admit [...] Ganga Judge Mobile Relation: Son Preferred language: Ecuadorean Monotype Mechanic needed? No Ranjeet Tobar DO Division of Hospitalist Medicine Inpatient Medical Services/[facility] PAGER: Epic chat * Kiana Wagner RD [...] assess Fluid Accumulation: No significant fluid accumulation Foreign Language Interpreter Strength: Not Performed Nutrition Assessment: 87 year old woman with PMHx: CAD, colitis, hypothyroidism. Presented to [facility] with worsening abdominal pain (achy and [...] (kg): 49.4 kg Total Energy Requirements (kcals/day): 4424-7308 (30-35 kcal/kg CBW) Weight Used for Protein [...] 110# UBW) % Weight Change (Calculated): -4.5 [place] Body Weight (lbs) (Calculated): 100 lbs [place] Body Weight (Kg) (Calculated): 45 kg % [place] Body Weight (Calculated): 105 % BMI (kg/m2) [...] to determine Kiana Wagner RDN, LDN, Contact: *[phone] * Ron Vines DO - 10/12/2022 10:20 [...] DO 10/12/2022 10:20 AM * Sylvain Mirza, [facility] - 10/12/2022 8:06 AM EDT Pharmacy Vancomycin Consult Follow-Up Note Non-UNDERTAKER ASSISTANT Patients Current Dosinmg q24h CREATININE Date Value [...] random level with am labs. * Ranjeet Tobar, - 10/11/2022 12:22 PM EDT Images from the original note were not included. Hospitalist Progress Note 10/11/[phone]: Please page me ([phone]) for patient care issues. [phone]: Please page [facility] Hospitalist for any issues. Subjective: Admit [...] CAD (coronary artery disease) Hypothyroidism Ischemic colitis ([facility]/HCC) LABS: CBC: Recent Labs 10/10/22 1454 10/11/22 [...] Ganga Judge Mobile Relation: Son Preferred language: Ecuadorean Monotype Mechanic needed? No Ranjeet Tobar DO Division of Hospitalist Medicine Inpatient Medical Services/[facility] PAGER: Epic chat * Andreia Hay RN - 10/11/2022 9:18 AM EDT Attempted two IV starts, call UNDERTAKER ASSISTANT to place for antibiotics. ] * Sylvain Mirza RPh - 10/11/2022 7:03 AM EDT Pharmacy Vancomycin Consult Follow-Up Note Non-UNDERTAKER ASSISTANT Patients Current Dosinmg x1 -> 750mg q24hr [...] and continue to follow. documented in this [facility]09-07-2023 Hospital Discharge instructions* Discharge Instr - Activity* [...] Lucio MD PCP: Saida Gardiner Discharging Nurse: RN Discharging Hospital Unit/Room#: B2-259/B2-259 A Discharging Unit Emergency Contact: Extended Emergency Contact Information Primary Emergency Contact: Gagna Judge Mobile Relation: Son Preferred language: Ecuadorean Monotype Mechanic needed? No Past Surgical History: Past Surgical [...] assistance Toileting Minimal assistance Feeding Minimal assistance Deputy Coroner Minimal assistance Med Delivery yes Wound Care [...] Score: @READMISSIONRISKDETAILS@ Discharging to Facility/ Agency Name: [facility] Address: [address] [place], [place] [id number] Dialysis Facility (if applicable) Name: Address: Dialysis Schedule: Phone: Fax: Laboratory Technologist/Executive Sous Chef signature: ICIAN SECTION Prognosis: good Condition at Discharge: stable Rehab Potential (if transferring to Rehab): good Recommended Labs or Other Treatments After Discharge: continue prn Bowel regime Physician Certification: I certify the above information and transfer of Katherine Judge is necessaryfor the continuing treatment of the diagnosis listed and that she requires retirement facilityfor less than 30 days. Update Admission H&P: No change in H&P PHYSICIAN SIGNATURE: documented in this [facility]09-07-2023 Note* Care Coordination - BRANDON Alvarez - 10/16/2022 11:52 AM EDT Dc to [facility] this afternoon at 2:00. [facility] to transport. Ambulancetransport form completed. Careport messaged [facility] with the dc time.Spoke with patients son to discuss dc arrangements and picker packer time. Report number provided to the bedside nurse. [id number] Miscellaneous Notes* Care Coordination - BRANDON Alvarez - 10/16/2022 11:52 AM EDT Dc to [facility] this afternoon at 2:00. [facility] to transport. Ambulancetransport form completed. Careport messaged [facility] with the dc time.Spoke with patients son to discuss dc arrangements and picker packer time. Report number provided to the bedside nurse. * Care Coordination - Unknown Case Management - 10/16/2022 10:35 AM EDT Patient Choice Patient Name: KATHERINE JUDGE Date of : 1935 All Providers Sent Referral Name: [facility] Phone: [phone] Address: [address] [place] [address] [facility]: [phone] Address: [address] [place] [address] Name: [facility] Address: [address] [place] [address] * Care Coordination - Stef Cox - 10/16/2022 8:51 AM EDT Discharge med list transmitted to [facility] via Careport per TCC request. 7000 was entered into [facility] for the SNF- Facility is aware. * Care Coordination - Joy Longo RN - 10/16/2022 8:20 AM EDT Images from the original note were not included. Care Management Progress Note Pt has discharge order. Pt to transfer to [facility]. [facility] notified to complete 7000 & to send discharge paperwork. [facility] notified to set up transport. [facility] notified of discharge. Discharge Milestones and Delays Expected Date/Time: 10/16/2022 Morning Disposition: Fdc Facility Transport status: No current request Discharge [...] 3:30 PM EDT Spoke with Lesley at [facility] & they can accept pt on 10/16. Notified pt & she asked TCC to follow up with her son. Notified son & he is agreeable.Notified attending, RN & [facility] via secure chat. * Care Coordination - Stef oCx - 10/15/2022 11:37 AM EDT Referral placed to SNF- [facility] sent to SNF- [facility] Eds via Careport per TCC request. Await review and response regarding ability to accept. TCC notified. * Care Coordination - Joy Longo RN - 10/15/2022 11:35 AM EDT Received call from pt son & they would like referral to [facility]. COMMUNITY LIVING SPECIALIST tasked to make referral. * Care Coordination - Joy Longo RN - 10/15/2022 10:29 AM EDT Images from the original note were not included. Care Management Progress Note Pt remains on 2E due to abd pain-improving. Constipation-resolved. Follow up CXR for moderate to large pleural effusions. Met with pt to discuss SNF choices. Pt choices are [facility] Ed[facility]. Notified COMMUNITY LIVING SPECIALIST to make referrals. Await response from SNF [...] 10:26 AM EDT Referral placed to SNF- [facility] E[facility] via Careport per TCC request. Await review and response regarding ability to accept. TCC notified. * Care Coordination - Roberta Whitney RN - 10/14/2022 4:12 PM EDT Care Managment Initial Assessment Date: 10/14/2022 Patient Name: Katherine Judge : 1935 Patient Information Source of Information: Patient Cognition/Language: WFL - Within Functional Limits Permission given to speak with patient telephone service representative/caregiver as indicated: Yes (Ganga Judge, son, ) Confirmation of Payer with patient/family: Yes Payer Name: Medicare : No (Spouse is a [place]. Made referral to [facility]) Confirmation of [...] Additional Information: Chart reviewed. Patient admitted to [facility] for treatment of Proctocolitis. Full liquid diet. PT/OT recommends SNF. Met with patient at bedside. Explained role. She is very pleasant. 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 Reports her son is helpful and lives 20 minutes away. Independent with adls. She does not drive. +PCP, +RX cov, +DME. Discussed SNF. Patient interested. But, wants to discuss with son first. Served Medicare Choice listing. No insurance authorization required to admit to SNF. DC plan: TBD Home with Home care vs SNF Tasked RAGINI perez to follow Roberta Whitney RN * Care Plan - Andreia [...] continue current care plan. documented in this [facility]09-07-2023 Note* Care Coordination - Unknown Case Management - 10/16/2022 10:35 AM EDT Patient Choice Patient Name: KATHERINE JUDGE Date of : 1935 All Providers Sent Referral Name: [facility] Phone: [phone] Address: [address] [place] [address] Name: [facility] Phone: [phone] Address: [address] [place] [address] Name: [facility] [place]. Address: [address] [place] [address] [facility] CenterQnzrkt25-16-7398 NoteCare Management Progress Note Pt has discharge order. Pt to transfer to [facility]. [facility] notified to complete 7000 & to send discharge paperwork. [facility] notified to set up transport. [facility] notified of discharge. Discharge Milestones and Delays Expected Date/Time: 10/16/2022 Morning Disposition: Fdc Facility Transport status: No current request Discharge Milestones Completed Place discharge order Complete med reconciliation Case mgmt discharge readiness Expected Discharge History Expected Date/Time Set By Reviewed At 10/16/2022 Morning Eder Monterroso MD 10/16/2022 8:14 AM 10/16/2022 Joy Longo RN 10/15/2022 2:43 PM 10/15/2022 BRANDON Avlarez 10/14/2022 9:51 AM 10/13/2022 Celeste Oneal PA-C 10/10/2022 8:36 PM 10/13/2022 Celeste Oneal PA-C 10/10/2022 5:32 PM Length of Stay (Days): 6 GMLOS: 2.6[facility]09-07-2023 Note* Care Coordination - Stef Cox - 10/16/2022 8:51 AM EDT Discharge med list transmitted to [facility] via Careport per TCC request. 7000 was entered into [employer] for the SNF- Facility is aware. [facility] CenterEynppy21-79-7049 Note* Care Coordination - Joy Longo RN - 10/16/2022 8:20 AM EDT Images from the original note were not included. Care Management Progress Note Pt has discharge order. Pt to transfer to [facility]. [facility] notified to complete 7000 & to send discharge paperwork. [facility] notified to set up transport. [facility] notified of discharge. Discharge Milestones and Delays Expected Date/Time: 10/16/2022 Morning Disposition: Fdc Facility Transport status: No current request Discharge [...] Length of Stay (Days): 6 GMLOS: 2.6 [facility] CenterZvqbvb44-87-9037 Hospital course Narrative* Eder Monterroso MD - [...] baseline PT OT evaluated the patient recommended retirement facility. Discharged in stable condition CONSULTANTS: GI [...] Your Medications These medications were sent to [facility] [address] [place] [address] Hours: Thursday to Thursday 10 am to 6 pm polyethylene glycol (PEG) 3350 17 g packet simethicone 80 MG chewable tablet DIET: Adult diet Regular; Low Fiber ACTIVITY: Up with assist COMPLEXITY OF FOLLOW UP: [] Moderate Complexity: follow up within 7-14 calendar days (51234) [] Severe Complexity: follow up within 7 calendar days (54781) FOLLOW UP TESTING, PENDING RESULTS OR REFERRALS [...] MD 10/16/2022, 8:14 AM documented in this [facility]09-06-2023 NoteHospitalist Progress Note 10/15/2022 [phone]: Please secure chat me for patient care issues. [phone]: Please secure chat [facility] Hospitalist for any issues. Subjective: Admit Date: 10/10/2022 PCP: Saida Gardiner Room#: B2-259/B2-259 A Interval History: Patient is lying on the bed, abdominal pain continues to improve. Denies any nausea or vomiting. Tolerating p.o. diet well. Diarrhea also improved. No other significant overnight issues. Adult diet Regular; Low Fiber @[id number]@ 24HR INTAKE/OUTPUT: Intake/Output Summary (Last 24 hours) [...] ordered. PT OT evaluated the patient recommended retirement facility. -am labs, replace lytes prn -increase activity -DVT prophylaxis: [] Lovenox [] Heparin [] SCDs [x] Encourage ambulation [] Already on Anticoagulation Anticipated Discharge - Date - tomorrow - Location -retirement facility - Pending the following -clinical improvement/placement Total time spent (which include face to face and non face to face encounters) : 25 minutes Toxic drug monitoring/narrow therapeutic index drug monitoring : # Drug name : # Route administered : # Method of monitoring : Extended Emergency Contact Information Primary Emergency Contact: Ganga Judge Mobile Relation: Son Preferred language: Ecuadorean Monotype Mechanic needed? No Eder Monterroso MD Division of Hospitalist Medicine [employer] care [facility] PAGER: [employer] [facility] [id number] Note* Care Coordination - Joy Longo RN - 10/15/2022 3:30 PM EDT Spoke with Lesley at [facility] & they can accept pt on 10/16. Notified pt & she asked TCC to follow up with her son. Notified son & he is agreeable.Notified attending, RN & [facility] via secure chat. [facility] CenterPngqls29-69-5210 NoteReferral placed to [facility] MAR sent to [facility] via Careport per TCC request. Await review and response regarding ability to accept. TCC notified. [facility]09-06-2023 NoteReceived call from pt son & they would like referral to [facility]. COMMUNITY LIVING SPECIALIST tasked to make referral. [facility]09-06-2023 NoteProgress Note SUBJECTIVE: No acute events overnight. [...] based on abdominal discomfort and tolerating diet [facility] [id number] NoteCare Management Progress Note Pt remains on 2E due to abd pain-improving. Constipation-resolved. Follow up CXR for moderate to large pleural effusions. Met with pt to discuss SNF choices. Pt [facility] are [facility] Notified COMMUNITY LIVING SPECIALIST to make referrals. Await response from SNF [...] PM Length of Stay (Days): 5 GMLOS: 2.6[facility]09-06-2023 NoteReferral placed to [facility] via Careport per TCC request. Await review and response regarding ability to accept. TCC notified. [facility]09-06-2023 Note* Care Coordination - Stef Cox - 10/15/2022 11:37 AM EDT Referral placed to [facility] sent to [facility] via Careport per TCC request. Await review and response regarding ability to accept. TCC notified. [facility] CenterQzhnde03-33-7409 Note* Care Coordination - Joy Longo RN - 10/15/2022 11:35 AM EDT Received call from pt son & they would like referral to [facility]. [facility] tasked to make referral. [place] [id number] Note* Care Coordination - Joy Longo RN - 10/15/2022 10:29 AM EDT Images from the original note were not included. Care Management Progress Note Pt remains on 2E due to abd pain-improving. Constipation-resolved. Follow up CXR for moderate to large pleural effusions. Met with pt to discuss SNF choices. Pt choices are [facility]. Notified COMMUNITY LIVING SPECIALIST to make referrals. Await response from SNF [...] Length of Stay (Days): 5 GMLOS: 2.6 [facility] [id number] Note* Care Coordination - Stef Cox - 10/15/2022 10:26 AM EDT Referral placed to SNF- [facility] via Careport per TCC request. Await review and response regarding ability to accept. TCC notified. [facility] Nnjnpq26-58-5071 Note* Care Coordination - Roberta Whitney RN - 10/14/2022 4:12 PM EDT Care Managment Initial Assessment Date: 10/14/2022 Patient Name: Katherine Judge : 1935 Patient Information Source of Information: Patient Cognition/Language: WFL - Within Functional Limits Permission given to speak with patient telephone service representative/caregiver as indicated: Yes (Ganga Judge, [...] Living Prescription Coverage: Yes Pharmacy Used: [facility] in [place] Medication Management: Independent Transportation/Shopping: Independent Transportation Mode: [...] Additional Information: Chart reviewed. Patient admitted to [facility] for treatment of Proctocolitis. Full liquid diet. PT/OT recommends SNF. Met with patient at bedside. Explained role. She is very pleasant. 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 Reports her son is helpful and lives 20 minutes away. Independent with adls. She does not drive. +PCP, +RX cov, +DME. Discussed SNF. Patient interested. But, wants to discuss with son first. Served Medicare Choice listing. No insurance authorization required to admit to SNF. DC plan: TBD Home with Home care vs SNF Tasked RAGINI perez to follow Roberta Whitney RN [facility]Kuwcbo21-29-8746 NoteHospitalist Progress Note 10/14/2022 [phone]: Please secure chat me for patient care issues. [phone]: Please secure chat [facility] Hospitalist for any issues. Subjective: Admit Date: 10/10/2022 PCP: Saida Gardiner Room#: B2-259/B2259 A Interval History: Patient is lying on the bed, abdominal pain is better. Complaining of multiple episodes of diarrhea. Denies any nausea or vomiting. No other significant overnight issues. Adult diet Full liquid @[id number]@ 24HR INTAKE/OUTPUT: No intake or output data [...] ordered. PT OT evaluated the patient recommended retirement facility. -am labs, replace lytes prn -increase activity -DVT prophylaxis: [] Lovenox [] Heparin [] SCDs [x] Encourage ambulation [] Already on Anticoagulation Anticipated Discharge - Date -1 to 2 days - Location -retirement facility - Pending the following -clinical improvement/placement Total time spent (which include face to face and non face to face encounters) : 25 minutes Toxic drug monitoring/narrow therapeutic index drug monitoring : # Drug name : # Route administered : # Method of monitoring : Extended Emergency Contact Information Primary Emergency Contact: Ganga Judge Mobile Relation: Son Preferred language: Ecuadorean Monotype Mechanic needed? No Eder Monterroso MD Division of Hospitalist Medicine [facility] PAGER: [employer] [id number] NoteGASTROENTEROLOGY PROGRESS NOTE Patient: Katherine Judge : [...] signed by Ron Vines DO 10/13/2022 2:25 [facility] [id number] NoteHospitalist Progress Note 10/13/2022 8625-4590: Please page me ([phone]) for patient care issues. [phone]: Please page [facility] Hospitalist for any issues. Subjective: Admit Date: 10/10/2022 PCP: Saida Gardiner Room#: B2-641/B2-175 A Interval History: No overnight issues. Denies [...] 195 205 201 BMP: Recent Labs 10/11/22 03310/12/2263210/13/22 030 NA 140 141 138 K 4.0 4.4 [...] [] Already on Anticoa (more content not included)...[facility] 10-12-2022 NoteHospitalist Progress Note 10/12/20226997734-4391: Please page me ([phone]) for patient care issues. [phone]: Please page [facility] Hospitalist for any issues. Subjective: Admit [...] CAD (coronary artery disease) Hypothyroidism Ischemic colitis ([facility]) LABS: CBC: Recent Labs 10/10/22 1454 10/11/22 [...] Mobile Relation: Son Pre (more content not included)...[facility] [id number] Note GASTROENTEROLOGY PROGRESS NOTE Patient: Katherine Judge [...] signed by Ron Vines DO 10/12/2022 10:20 [facility]09-03-2023 Consult note* Marilu Whitaker RPh - 10/12/2022 12:14 PM EDT Vancomycin therapy has been discontinued by Dr. Tobar on 10-12-22. Thank you for the consult. Pharmacy signing off for vancomycin dosing. 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 year [...] Will continue to follow. documented in this [facility]09-02-2023 Plan of care note* Care Plan - [...] address these barriers include encourage fluids . [facility] CenterSvyfcr30-02-6411 NoteHospitalist Progress Note 10/11/2022 [phone]: Please page me ([phone]) for patient care issues. [phone]: Please page [facility] night Hospitalist for any issues. Subjective: Admit [...] Ganga Judge Mobile Relation: Son Preferred language: Ecuadorean Monotype Mechanic needed? No Ranjeet Tobar DO Division of Hospitalist Medicine Inpatient Medical Services/[facility] PAGER: [facility] [id number] NoteGASTROENTEROLOGY CONSULTATION REASON FOR CONSULT: The patient [...] at 10/11/22 1001 se (more content not included)...[facility]09-02-2023 Consult note * Ron Vines, DO - 10/11/2022 11:11 [...] 2 mg, 2 mg, Oral, Nightly, Ranjeet Vogt, DO enoxaparin (Lovenox) syringe 40 mg, 40 [...] Ron Vines DO 10/11/2022 11:11 AM T [facility] CenterZtuxhb38-26-2791 NoteAttending History and Physical Admit Date: 10/10/2022 [...] the last 72 hours. (more content not included)...[facility]09-01-2023 Plan of care note* Care Plan - [...] these barriers include continue current care plan. 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 year [...] for the consult. Will continue to follow. [facility] CenterOokjpz56-13-7527 History and physical note* Akil Lucio MD [...] Ganga Judge Mobile Relation: Son Preferred language: Ecuadorean Monotype Mechanic needed? No Code status: No Order -see [...] H&P to the patient's PCP. Thank you. [employer] Phone: [phone]) 584-613409-01-2023 History and physical note* Akil Lucio MD [...] Ganga Judge Mobile Relation: Son Preferred language: Ecuadorean Monotype Mechanic needed? No Code status: No Order -see [...] patient's PCP. Thank you. documented in this encounterSMagruder HospitalNjcfkq28-17-9279 Emergency department Note* NADIYA Cleary - 10/10/2022 2:19 PM EDT Guided family back NADIYA Cleary 10/10/22 1419 [facility] CenterUvxkie25-36-0267 Emergency department Note* NADIYA Cleary - 10/10/2022 2:19 PM EDT Guided family back NADIYA Cleary 10/10/22 1419 * Evelin Salcedo DO - 10/10/2022 1:26 PM EDT Emergency Department Encounter [facility] ED Patient: Katherine Judge : 1935 [...] clarification.) Evelin Salcedo DO Acute Care [facility] Evelin Salcedo DO 10/10/222130 * Celeste Oneal [...] Culture. Procedure Abnormality Status --------- ------ Complete Urinalysis[[id number]] Please view results for these tests on [...] Emergency Medicine Provider Celeste Oneal PA-C 10/10/22 7250 documented in this [facility]09-01-2023 Physician Emergency department Note* Evelin Salcedo DO - 10/10/2022 1:26 PM EDT Emergency Department Encounter [facility] ED Patient: Katherine Judge : 1935 Date of Evaluation: 10/10/2022 ED Supervising Physician: Evelin Salcedo, DO I independently examined and evaluated Katherine [...] [employer] Evelin Salcedo DO 10/10/222130 [employer] Phone: [phone] 228-276109-01-2023 Physician Emergency department Note* Celeste Oneal PA-C [...] Culture. Procedure Abnormality Status --------- ------ Complete Urinalysis[[id number]] Please view results for these tests on [...] Emergency Medicine Provider Celeste Oneal PA-C 10/10/22 8991 [facility] CenterHijabw04-75-3165 Evaluation + Plan note* Assessment & Plan Note - Yana Case - 10/07/2022 2:57 PM EDTAssociated Problem(s): Lower abdominal pain Recurrent, to return to established GI (Dr. Garcia) for further evaluation. [facility] Work Phone: [phone]) 754-811308-29-2023 Miscellaneous Notes* Assessment & Plan Note - [...] Allergy/immunology referral placed today. [facility] Work Phone: [phone]) 614-610908-29-2023 Evaluation + Plan note* Assessment & Plan Note - Yana Case - 10/07/2022 2:50 PM EDTAssociated Problem(s): Anemia in other chronic diseases classified elsewhere 05/2022 CBC normal Patient to stop oral iron at this time. Repeat labs to be done prior to 6 month follow-up. [facility] Work Phone: [phone] Evaluation + Plan note* Assessment & Plan Note - Yana Case - 10/07/2022 2:47 PM EDTAssociated Problem(s): Benign essential hypertension BP is under good control, 122/70 in office today. Continue present regimen. [facility] Work Phone: [phone] Evaluation + Plan note* Assessment & Plan [...] daily and calcium at 1500 mg daily. [facility] Work Phone: [phone]) [phone] Evaluation + Plan note* Assessment & Plan Note - Yana Case - 10/07/2022 2:23 PM EDTAssociated Problem(s): Chronic kidney disease, stage III (moderate) ([facility]) 05/2022 labs at baseline for patient. Will continue to monitor on regular basis. Revisited good BP control, avoiding NSAIDs, and adequate hydration as measures to further protect kidneys. [facility] Work Phone: [phone]) [phone] Evaluation + Plan note* Assessment & Plan Note - Yana Case - 10/07/2022 2:22 PM EDTAssociated Problem(s): Hypercholesterolemia 05/2022 TC/HDL ratio 3.3, LDL 84, TRIG 135 Goal TC/HDL ratio 3.4 or less, LDL 99 or less, TC 200 or less, and TRIG 150 or less. Continue current regimen of Atorvastatin, Isosorbide, and Plavix. Continue heart healthy diet Continue exercise as tolerated [facility] Work Phone: [phone] Evaluation + Plan note* Assessment & Plan [...] heart healthy diet Continue exercise as tolerated [facility] Work Phone: [phone] Evaluation + Plan note* Assessment & Plan [...] nasal sprays. 4. Allergy/immunology referral placed today. [facility] Work Phone: [phone]) [phone] History of Present illness Narrative* Christ Gardiner, [...] cardiology ECHO 03/2022 LV 60-65%, impaired relaxation, mkj-vi-bywegc prolapse of the P2 segment of the [...] BMP at baseline. -Osteoporosis 04/2022 DEXA osteopenia 2 sites. Previously disinclined [...] Attestation By signing my name below, Yana Cameron, Tomas attest that this documentation has been prepared under the direction and in the presence of Christ Gardiner DO. documented in this [facility] Work Phone: [phone] Instructions* Patient Instructions* Christ Gardiner DO - [...] exercise as tolerated Osteoporosis 04/2022 DEXA osteopenia 23 sites. Previously disinclined to initiate bisphosphonate due [...] sooner follow-up if needed. documented in this [facility] Work Phone: [phone]) 721-975105-11-2023 Evaluation + Plan note* Assessment & Plan [...] repeat CXR ordered to be done 06/29/2022. [facility] Work Phone: [phone]) 519-234005-11-2023 Miscellaneous Notes* Assessment & Plan Note - [...] to be done 06/29/2022. documented in this [facility]The [facility] Work Phone: [phone]) [phone] Evaluation + Plan note* Assessment & Plan Note - Yana Case - 06/19/2022 11:03 AM EDTAssociated Problem(s): Abdominal pain (Resolved 06/19/2022) Reported at prior visit; she denies any abdominal pain or GI symptoms at visit today. No further work-up indicated at this time. [facility] Work Phone: [phone] Evaluation + Plan note* Assessment & Plan [...] Repeat CXR ordered to be done 06/29/2022. [facility] Work Phone: [phone]) [phone] History of Present illness Narrative* Christ Gardiner DO - 06/19/2022 10:40 AM EDT Subjective Patient [...] ordered 05/30/2022 Patient to meet with our sustainability executive director today to get sooner follow-up with cardiology [...] HENT: Head: Normocephalic and atraumatic. Mouth/Throat: Lips: Tatums. Mouth: Mucous membranes are moist. Eyes: Extraocular [...] Attestation By signing my name below, Yana Cameron, Scribe attest that this documentation has been prepared under the direction and in the presence of Christ Gardiner DO. documented in this [facility] Work Phone: [phone] History of Present illness Narrative* 06/12/22: Mrs [...] initiation oflasix, however the patient states she has no [...] weight is up 5 lbs since December. [facility] Work Phone: [phone]) [phone] Evaluation + Plan note* Assessment & Plan Note - Yana Case - 06/10/2022 3:02 PM EDTAssociated Problem(s): Benign essential hypertension BP is under good control, 130/62 in office today. Continue present regimen. [facility] Work Phone: [phone]) 177-353705-02-2023 Miscellaneous Notes* Assessment & Plan Note - [...] 5 years ago. Follows with GI, Dr. Gracia, has not seen in 2 years. Exam [...] check in 7-10 days. documented in this [facility] Work Phone: [phone]) [phone] Evaluation + Plan note* Assessment & Plan [...] to go to the ER for evaluation. [facility] Work Phone: [phone]) [phone] Evaluation + Plan note* Assessment & Plan [...] at her next check in 7-10 days. [facility] Work Phone: [phone] Evaluation + Plan note* Assessment & Plan [...] at her next check in 7-10 days. [facility] Work Phone: [phone] History of Present illness Narrative* Christ Gardiner, - 06/10/2022 1:30 PM EDT Subjective Patient [...] ordered 05/30/2022 Patient to meet with our sustainability executive director today to get sooner follow-up with cardiology [...] of Christ Gardiner DO. documented in this [facility] Phone: [phone] Instructions* Patient Instructions* Yana Case - 06/10/2022 [...] today. Continue present regimen. [facility] Phone: [phone] Evaluation + Plan note* Assessment & Plan [...] okay overall. She wishes to work this [facility] outpatient as this has been ongoing for some time. She assures me she will get home pulse ox formonitoring. Red flag symptoms reviewed, patient to go straight to ED with any chest pain, significan t SOB, palpitations, or diaphoresis. CXR ordered today. Will have patient meet with our sustainability executive director today to get sooner follow-up with cardiology in the next1-2 weeks, she is already established here at . Follow-up with me in 1 week. [facility] Work Phone: [phone]) [phone] Miscellaneous Notes* Assessment & Plan Note - [...] today. Will have patient meet with our sustainability executive director today to get sooner follow-up with cardiology [...] pulse ox at home) [facility] in [facility] Phone: [phone]) [phone] Evaluation + Plan note* Assessment & Plan Note - Yana Case - 05/30/2022 3:57 PM EDTAssociated Problem(s): Osteoporosis Due to hypoxia when rooming today will defer osteoporosis discussion until this work up is complete. [facility] Work Phone: [phone] Evaluation + Plan note* Assessment & Plan Note - Yana Case - 05/30/2022 3:53 PM EDTAssociated Problem(s): Benign essential hypertension BP under good control, however, due to patient being hypoxic, will increase Doxazosin from 1 mg to 2 mg daily. Continue Metoprolol 25 BID and Lasix. [facility] Work Phone: [phone] History of Present illness Narrative* Christ Gardiner [...] okay overall. She wishes to work this [facility] outpatient as this has been ongoing for some time. She assures me she will get home pulse ox formonitoring. Red flag symptoms reviewed, patient to go straight to ED with any chest pain, significan t SOB, palpitations, or diaphoresis. CXR ordered today. Will have patient meet with our sustainability executive director today to get sooner follow-up with cardiology [...] By signing my name below, I, Yana Bronsonclif, Scribe attest that this documentation has been [...] pulse ox at home) [facility] 1(210) 854-361904-21-2023 Progress note* Result Encounter Note - Christ [...] monitoring sx and pulse ox at home) [facility] Work Phone: 1(794) 368-609203-07-2023 Evaluation + Plan note* Assessment & Plan Note - Yana Case - 04/15/2022 3:28 PM ESTAssociated Problem(s): Routine general medical examination at [facility] Vaccines and screenings reviewed DEXA ordered [facility] Work Phone: 1([phone]) 796-763703-07-2023 Miscellaneous Notes* Assessment & Plan Note - Yana Case - 04/15/2022 3:28 PM ESTAssociated Problem(s): Routine general medical examination at [facility] Vaccines and screenings reviewed DEXA ordered [...] at 1500 mg daily. documented [facility] Work Phone: 1(223) 703-495903-07-2023 Evaluation + Plan note* Assessment & Plan Note - Yana Case - 04/15/2022 3:19 PM ESTAssociated Problem(s): Hypercholesterolemia Continue current regimen Repeat lipid panel ordered today. [facility] Work Phone: 1(169) 428-747703-07-2023 Evaluation + Plan note* Assessment & Plan Note - Yana Case - 04/15/2022 3:18 PM ESTAssociated Problem(s): Anemia in other chronic diseases classified elsewhere Repeat CBC ordered today [facility] Work Phone: [phone] 820-191903-07-2023 Evaluation + Plan note* Assessment & Plan Note - Yana Case - 04/15/2022 3:17 PM ESTAssociated Problem(s): Chronic kidney disease, stage III (moderate) (CMS/HCC) Repeat BMP ordered today [facility] Work Phone: [phone] 391-771303-07-2023 Evaluation + Plan note* Assessment & Plan Note - Yana Case - 04/15/2022 3:14 PM ESTAssociated Problem(s): GERD (gastroesophageal reflux disease) Continue Pantoprazole + Famotidine Famotidine refilled today Continue to follow-up with GI [facility] Work Phone: [phone] Evaluation + Plan note* Assessment & Plan Note - Yana Case - 04/15/2022 3:13 PM ESTAssociated Problem(s): Benign essential hypertension BP well-controlled, continue present regimen [facility] Work Phone: [phone]) 573-143503-07-2023 Evaluation + Plan note* Assessment & Plan Note - Yana Case - 04/15/2022 3:13 PM ESTAssociated Problem(s): CAD (coronary artery disease) Repeat lipid panel ordered today. Continue current regimen Continue heart healthy diet Continue exercise as tolerated [facility] Work Phone: [phone] [phone] Evaluation + Plan note* Assessment & Plan Note - Yana Case - 04/15/2022 3:12 PM ESTAssociated Problem(s): Aortic stenosis ECHO 03/2022 Continue to follow-up with cardiology. [facility] Work Phone: [phone] Evaluation + Plan note* Assessment & Plan Note - Yana Case - 04/15/2022 3:12 PM ESTAssociated Problem(s): Insomnia Stable, continue Mirtazapine 30 mg at bedtime, refilled today. [facility] Work Phone: [phone] 482-729103-07-2023 Evaluation + Plan note* Assessment & Plan [...] daily and calcium at 1500 mg daily. [facility] Work Phone: [phone]) 181-547203-07-2023 History of Present illness Narrative* Christ Gardiner [...] cardiology ECHO 03/2022 LV 60-65%, impaired relaxation, yqo-lz-zcoeoa prolapse of the P2 segment of the [...] Genitourinary Chronic kidney disease, stage III (moderate) (CMS/[facility]) Current Assessment & Plan Repeat BMP ordered [...] of Christ Gardiner DO. documented in this [facility] Work Phone: 1(751) 691-166207-06-2022 History of Present illness Narrative* 08/14/2021:Mrs Judge [...] weight is up 5 lbs since December. [facility] [place] Work Phone: 1(353) 498-808307-06-2022 History of Present illness Narrative* 08/14/2021:Mrs Judge [...] weight is up 5 lbs since December. [facility] Work Phone: 1(515) 138-913509-13-2021 NoteHospitalist Discharge Summary Katherine Judge : 1935 [...] Discharge Medications: Katherine Judge Home Medication Instructions JOE:[id number] Printed on:10/22/202105 Medication Information acetaminophen (TYLENOL) 500 [...] Complexity: follow up within 7-14 calendar days (61090) [x] Severe Complexity: follow up within 7 calendar days (60948) Follow up Testing, Pending results or Referrals [...] patient is scheduled fo (more content not included)...[facility]02-01-2021 History of Present illness Narrative* [facility] LAST [...] the past, then call my office at [phone] option 1 and we will pursue a special CT scan to look at the bloodvessels. Follow-up on an as needed basis. Trial of Dicyclomine in place of Hyoscyamine. JAILENEChrist [facility] Work Phone: 1(210) 642-254202-01-2021 History of Present illness Narrative* MW[facility] LAST [...] in her apartment. * Patient hospitalized at [facility] 10/14-10/22/2020 with diagnosis of ischemic colitis, [...] strength. Also endorses urinary frequency. States that [facility] took specimen about 2-3 days ago. Notes [...] the past, then call my office at [phone] option 1 and we will pursue a special CT scan to look at the bloodvessels. Follow-up on an as needed basis. Trial of Dicyclomine in place of Hyoscyamine. Prudence [facility] Work Phone: [phone]) 498-571402-01-2021 History of Present illness Narrative* MWV LAST [...] in her apartment. * Patient hospitalized at [facility] 10/14-10/22/2020 with diagnosis of ischemic colitis, [...] strength. Also endorses urinary frequency. States that [facility] took specimen about 2-3 days ago. Notes [...] the past, then call my office at [phone] option 1 and we will pursue a special CT scan to look at the bloodvessels. Follow-up on an as needed basis. Trial of Dicyclomine in place of Hyoscyamine. MP-Christ [facility] Work Phone: 1([phone]) 204-816702-01-2021 History of Present illness Narrative* MW[facility] LAST COMPLETED 03/12/2020 * Health maintenance: * TDAP-- 06/2013 * COVID-- completed + booster 12/2020 * Influenza-- 10/2019 * Shingrix-- completed 04/2020 per patient * Pneumonia series-- completed * Mammo-- graduated * PAP-- hysterectomy - graduated * Cscope(45-75)-- graduated * Last Dexa (65+)-- 02/2019 (osteoporosis 03/14; normal 02/11 areas) * Anxiety/Depression-- 09/2020 * PHQ-9: 3 [...] immunization * 1: Have you ever had Guillain-Covert syndrome? (a viral illness resulting in neurological [...] the past, then call my office at [phone] option 1 and we will pursue a special CT scan to look at the bloodvessels. Follow-up on an as needed basis. Trial of Dicyclomine in place of Hyoscyamine. 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 nursing told her social work was ordered, just watiting * no falls * does use frozen dinners for dinner * usually make breakfast and lunch, nothing elaborate (sandwiches,d fruit veggies) * is having a bit of diarrhea sometimes dark but is on iron -Christ [facility] Work Phone: [phone]) [phone] History of Present illness Narrative* Health maintenance: [...] fracture. * 02/2019 DEXA osteoporosis 2/3, normal 1/3. * -Back pain, taking Gabapentin 300 mg up to TID + Tizanidine 2 mg BID PRN for back spasms. [facility] Work Phone: chief complaint Narrative - Reportedevaluation of multiple issues.-[facility] Work Phone: consult note Author Thanh [facility] Note Date/Time July 25, 2024 5:[address] [facility] Medical Records Department [address] [place] [address] Consultation 07/25/24 1706 MR#: [id number] Acct: [id number] Name: DERICKKATHERINE N Rep #:[id number] : 1935 89 From: Thanh Mclaughlin DO [...] years ago with Dr. Malcom Herron in [facility]. She is on Plavix [facility] Medical History (Updated 07/25/24 @ [...] her son who is her power of trademark attorney Appearance: cooperative Extremity Extremity Narrative: Exquisitely [...] % (Auto) 69.2, Lymph % (Auto) 22.9, Williamson % (Auto) 6.2, Eos % (Auto) 0.9, [...] of the proximal right femur. Reading Location: [facility] Chest X-Ray 07/25/24 15:15 IMPRESSION: Cardiomegaly and vascular congestion with atelectasis at the lung bases. Reading Location: [facility] 07/25/24 1710 <Electronically signed by Thanh Mclaughlin DO> Cosigner Signature (if applicable): CC: Dr. Kam Ocampo Sr., DO~ Signed [facility] Work Phone: Discharge summary Author Neymar Cunningham [facility] November 02, 2022 12:11pm Note Date/Time November 02, 2022 11:56am [facility] Medical Records Department [address] [place] [id number] Transfer to [facility] MR#: [id number] Acct: [id number] Name: KATHERINE JUDGE Rep #:[id number] : 1935 87 From: Neymar Herrera PCP: Dr. Kam Ocampo Sr., DO Status:A DM IN Certification of patient admission REQUIRED AT TIME OF ADMISSION. I CERTIFY THAT POST-HOSPITAL ECF SERVICES ARE REQUIRED TO BE GIVEN ON AN IN-PATIENT BASIS BECAUSE OF THE ABOVE NAMED PATIENT'S NEED FOR GROUP HOME CARE ON A CONTINUING BASIS FOR THE CONDITION(S) FOR WHICH HE/SHE WAS RECEIVING IN-PATIENT HOSPITAL SERVICES PRIOR TO HIS/HER TRANSFER TO THE [facility]. 11/02/22 1211<Electronically signed by Neymar Cunningham MD> [...] CAD, hypertension and depression who presented to [facility] ED from care home on 10/30/2022 for expressive aphasia and dysarthria. [...] of ASD; bubble contrast study negative for pacay-td-kude interatrial shunt. LA severely enlarged. EF 70%. MRI brain reports no acute or subacute ischemic infarct or acute intracranial abnormality. SOC consult ordered 2. Chronic debility Patient's family notes that she was recently hospitalized at an outside hospitalfor medical concerns unrelated to current concern for acute CVA. She was discharged to a retirement facility, with plans for long-term placement in a care home after that. Has been residing at the [facility], and family has been happy with [...] diet as tolerated w/ texture/consistency modifications per KELLER MACHINE OPERATOR as indicated; will monitor PO intake as established and provide ONS if indicated Discharge Plan Admission Admit Date/Time: 10/30/22 21:21 Primary Reason for Your Visit: TIA/possible acute stroke. Attending Provider: Neymar Cunningham Primary Care Provider: Terrence Addison,Kam Consulting Providers: Hayden Diaz; Mu Grossman; Ajay Nieves; Dayron Workman; Lucio Brown; Alen Burgess; Melania Perez LICENSED SALES PRODUCER Discharge Orders/Prescriptions Prescriptions: New atorvastatin 40 mg [...] QHS Referrals / Follow Up: Terrence Addison,Kam, DO [Primary Care Provider] - Eh Ma MD [Non-Staff -Ordering Privileges] - Within 1 Month Disposition Disposition (needs filled in before D/C Order can be placed): [facility] 11/02/22 1211 <Electronically signed by Neymar Cunningham MD> Cosigner Signature (if applicable): CC: LICENSED SALES PRODUCERTha Perez; Dr. Hayden Diaz, DO; Dr. Mu Grossman MD; Dr. Kam Ocampo Sr., DO; Dr. Ajay Nieves DO; Dr. Dayron Workman MD; Dr. Lucio Brown MD; Dr. Alen Burgess MD ~ [facility] Work Phone: Discharge summary Author Neymar Octavio [facility] November 02, 2022 12:44pm Note Date/Time November 02, 2022 11:58am [facility] Medical Records Department [address] [place] [address] Discharge Summary 11/02/22 1157 MR#: [id number] Acct: [id number] Name: KATHERINE JUDGE Rep #:[id number] : 1935 87 From: Neymar Herrera PCP: Dr. Kam Ocampo Sr., DO Status:A DM IN Location: ICU CVICU 3-1 Providers Date of Admission: 10/30/22 Date of Discharge: 11/02/22 Primary Care Physician: Dr. Kam Ocampo Sr., Consultations 10/30/22 20:14 Consult: [facility] / Pulmonary Medicine Routine Consulting Provider: [facility] Reason for Consult: stroke for thrombolytic administration [...] CAD, hypertension and depression who presented to [facility] ED from care home on 10/30/2022 for expressive aphasia and dysarthria. [...] of ASD; bubble contrast study negative for qbkpf-oy-rnie interatrial shunt. LA severely enlarged. EF 70%. [...] acute CVA. She was discharged to a retirement facility, with plans for long-term placement in a care home after that. Has been residing at the [facility], and family has been happy with [...] Signed: Juvenal Guillen MD at 14:05 EDT Reading Location ID and State: [facility] / [place] , Service support , Meaningful Use Info Meaningful Use Diagnoses (Choose all that apply): None applicable Discharge Plan Admission Admit Date/Time: 10/30/22 21:21 Primary Reason for Your Visit: TIA/possible acute stroke. Attending Provider: Neymar Cunningham Primary Care Provider: Terrence Addison,Kam Consulting Providers: Hayden Diaz; Mu Grossman; Ajay Nieves; Dayron Workman; Lucio Brown; Alen Burgess; Melania Perez LICENSED SALES PRODUCER Instructions Additional Instructions / Restrictions: Fasting TSH [...] 75 mg tablet 75 mg PO .mon wed thu doxazosin [Cardura] 2 mg tablet 2 mg [...] in before D/C Order can be placed): [facility] 11/02/22 1244 <Electronically signed by Neymar Cunningham MD> Cosigner Signature (if applicable): CC: Dr. Kam Ocampo Sr., DO; Dr. Neymar Cunningham MD~ Signed [facility] Work Phone: Evaluation note* Diagnosis Hypoxia- Primary Hypoxemia Coronary artery disease without angina pectoris, unspecified vessel or lesion type, unspecified whether [place] or transplanted heart Benign essential hypertension Essential hypertension, benign Pneumonia of right lung due to infectious organism, unspecified part of lung documented in this encounter [facility] Work Phone: Evaluation note* Diagnosis Hypoxia Hypoxemia Benign essential hypertension Essential hypertension, benign Pneumonia of right lung due to infectious organism, unspecified part of lung Abdominal pain, unspecified abdominal location documented in this encounter [facility] Work Phone: Evaluation note* Diagnosis Hypoxia Hypoxemia Pneumonia of right lower lobe due to infectious organism Abdominal pain, unspecified abdominal location documented in this encounter [facility] Work Phone: Evaluation note* Diagnosis Benign essential hypertension- Primary Essential hypertension, benign Osteoporosis, unspecified osteoporosis type, unspecified pathological fracture presence Coronary artery disease without angina pectoris, unspecified vessel or lesion type, unspecified whether [place] or transplanted heart Stage 3a chronic kidney disease (CMS/HCC) Hypercholesterolemia Pure hypercholesterolemia Allergic rhinitis, unspecified seasonality, unspecified trigger Multiple allergies Lower abdominal pain Abdominal pain, other specified site Anemia in other chronic diseases classified elsewhere documented in this encounter [facility] Work Phone: Evaluation note* Diagnosis 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 Abdominal pain, generalized Constipation, unspecified constipation type [facility] Diagnosis Onset Date Resolution Status Acute CVA (cerebrovascular accident) acute History of CAD (coronary artery disease) acute Hypertension chronic [facility] Work Phone: Evaluation note* Diagnosis Onset Date Resolution Status History of CAD (coronary artery disease) acute Acute CVA (cerebrovascular accident) resolved [facility] Work Phone: Evaluation noteNo assessment information available [facility] Work Phone: Evaluation note* Diagnosis Healthcare maintenance- Primary Osteoporosis, unspecified osteoporosis type, unspecified pathological fracture presence Screening for osteoporosis Special screening for osteoporosis Postmenopausal estrogen deficiency Benign essential hypertension Essential hypertension, benign Coronary artery disease without angina pectoris, unspecified vessel or lesion type, unspecified whether [place] or transplanted heart Gastroesophageal reflux disease, unspecified [...] health care facility documented in this encounter [facility] Work Phone: Evaluation note* Diagnosis Onset Date Resolution Status Admit Date Closed intertrochanteric fra cture of right hip acute July 25, 2024 4:51pm Elevated blood pressure reading acut e July 25, 2024 4:51pm Fall acute July 25 4:51pm [facility] Work Phone: Evaluation note* Diagnosis Onset Date Resolution Status Admit Date Altered mental status acute U[place]man 2024 5:20pm Anemia acute August 02 5:20pm GI bleed acute August 02 5:20pm [facility] Work Phone: History of Present illness Narrative* [...] * SocHx: Denies smoking, alcohol, or illicits [facility] Work Phone: History of Present illness Narrative* [...] * SocHx: Denies smoking, alcohol, or illicits [facility] Work Phone: History of Present illness [...] ischemic colitis, other segmental colonic biopsies normal). [facility] Work Phone: History of Present illness [...] movement. The pain is not associated with eating.[facility] Work Phone: History of Present [...] Her weight is up 5 lbs since December.[facility] Work Phone: History of Present illness Narrative* [...] kidney function check was 03/2021 (stable) * [employer]: (last seen 03/2021), follow up in 6mo [...] AM and once in PM. No sedation. -[facility] Work Phone: History of Present [...] to her right cheek, but denies any trauma.[facility] [address] [place] Work Phone: History of Present [...] She is now under going rehab in [facility] and is now on continuous O2. She reports that after urinating, she had a syncopal episode. She is unsurewhat caused this syncopal episode. She denies any complaints of chest pain, lower extremity edema or weight gain. She does complain of shortness of breath and weight loss since her hospitalization. [facility] [address] [place] Work Phone: History of Present [...] to her right cheek, but denies any trauma.[facility] Work Phone: Reason for referral (narrative)* Consultation (Routine) - Authorized Specialty Diagnoses / Procedures Referred By Naomi young Referred To Contact Primary Care Diagnoses Hypoxia Benign essential hypertension Procedures Follow Up In Advanced Primary Care - PCP Christ Gardiner DO [address] [facility], [facility] [address] [place] [address] Referral ID Status Reason Start Date Expiration Date V isits Requested Visits Authorized [id number] Authorized 06/01/2022 11/28/2022 1 1 * Imaging (Routine) - Authorized Specialty Diagnoses / Procedures Referred By Naomi young Referred To Contact Radiology Diagnoses Hypoxia Procedures XR chest 2 views Christ Gardiner DO [address] [facility], [facility] [address] [place] [address] Referral ID Status Reason Start Date Expiration Date Visits Requested Visits Authorized [id number] Authorized Perform Procedure 05/30/2022 11/26/2022 1 1 [facility] Work Phone: Rekieo for referral (narrative)* Consultation (Routine) - Authorized Specialty Diagnoses / Procedures Referred By Naomi young Referred To Contact Primary Care Diagnoses Hypoxia Pneumonia of right lower lobe due to infectious organism Abdominal pain, unspecified abdominal location Procedures Follow Up In Advanced Primary Care - PCP Christ Gardiner DO [address] [facility], [facility] [address] [place] [address] Referral ID Status Reason Start Date Expiration Date V isits Requested Visits Authorized [id number] Authorized 06/10/2022 12/07/2022 1 1 [facility] Work Phone: Rezvyr for referral (narrative)* Consultation (Routine) - Authorized Specialty Diagnoses / Procedures Referred By Contac t Referred To Contact Gastroenterology Diagnoses Lower abdominal pain Procedures [place] OFFICE/OUTPATIENT [facility] 60-74 MINUTES Christ Gardiner DO [address] [facility], [facility] [address] [place] [address] Referral ID Status Reason Start Date Expiration Date Visits Requested Visits Authorized [id number] Authorized Specialty Services Required 10/07/2022 04/05/2023 1 1 * Consultation (Routine) - Authorized Specialty Diagnoses / Procedures Referred By Contac t Referred To Contact Allergy Diagnoses Multiple allergies Procedures NC OFFICE/OUTPATIENT [facility] 60-74 MINUTES Christ Gardiner DO [address] [facility], [address] [address] Referral ID Status Reason Start Date Expiration Date Visits Requested Visits Authorized [id number] Authorized Specialty Services Required 10/07/2022 04/05/2023 1 1 [facility] Work Phone: Reghqw for referral (narrative)* Consultation (Routine) - Authorized Specialty Diagnoses / Procedures Referred By Contac t Referred To Contact Primary Care Diagnoses Osteoporosis, unspecified osteoporosis type, unspecified pathological fracture presence Benign essential hypertension Coronary artery disease without angina pectoris, unspecified vessel or lesion type, unspecified whether [place] or transplanted heart Stage 3a chronic kidney disease Hypercholesterolemia Procedures Follow Up In Advanced Primary Care - PCP Christ Gardiner DO [address] [facility], [address] [address] Referral ID Status Reason Start Date Expiration Date V isits Requested Visits Authorized [id number] Authorized 04/15/2022 10/12/2022 1 1 * Consultation (Routine) - Authorized Specialty Diagnoses / Procedures Referred By Contac t Referred To Contact Primary Care Diagnoses Osteoporosis, unspecified osteoporosis type, unspecified pathological fracture presence Benign essential hypertension Coronary artery disease without angina pectoris, unspecified vessel or lesion type, unspecified whether [place] or transplanted heart Procedures Follow Up In Advanced Primary Care - PCP Christ Gardiner DO [address] [facility], [facility] [address] [place] [address] Referral ID Status Reason Start Date Expiration Date V isits Requested Visits Authorized [id number] Authorized 04/15/2022 10/12/2022 1 1 * Imaging (Routine) - Authorized Specialty Diagnoses / Procedures Referred By Contac t Referred To Contact Radiology Diagnoses Screening for osteoporosis Postmenopausal estrogen deficiency Procedures XR DEXA bone density Christ Gardiner DO [address] [facility], [facility] [address] [place] [address] Referral ID Status Reason Start Date Expiration Date Visits Requested Visits Authorized [id number] Authorized Perform Procedure 04/15/2022 10/12/2022 1 1 [facility] Work Phone: Reason for referral (narrative)No reason for referral information availableWCleveland Clinic Foundation Work Phone: Summary Purpose Family History No [...] Disease: Mother Status:Active Coronary Artery Disease: Mot her(V1.49) Status:Active Diabetes Mellitus: Mother(V1 8.0) Status:Active Obesity: Mother Status:Active Arthritis: Mother(V17.7) Status:Active Coronary Artery Disease: Fat her(V1.49) Status:Active Heart Surgery: Father Status:Active Breast Cancer: [...] Allergies: Family History Status:Active Hypertension: Family History (749) Status:Active Heart Disease: Family Histor y(7.49) Status:Active [...] Allergies: Family History Status:Active Hypertension: Family History (749) Status:Active Heart Disease: Family Histor y(49) Status:Active [...] Family Histor y(7.49) Status:Active Hypertension: Family History (49) Status:Active Allergies: [...] Family Histor y(V17.49) Status:Active Hypertension: Family History (49) Status:Active Allergies: [...] FoundDocuments on File Type Date Recorded Patient Financial Supervisor Expl anation Living Will 10/16/2021 Healthcare Power of Atty 01/05/2017 Latest Code Status on File Code Status Date Activated Date Inactivated Comments Full Code 10/10/2022 9:05 PM 10/16/2022 5:15 PM Advance Directive Response Recorded Date/ Time Living Will Yes October 30, 2022 9:18pm Power of Pharmacoepidemiologist Yes October 9:18pm Name of Medical Power of Pharmacoepidemiologist Ganga Judge October 30, 2022 9:18pm Advance Directive Response Recorded Date/ Time Name of Medical Power of Pharmacoepidemiologist Ganga diggs October 30, 2022 10:55pm Living Will No October 30, 2022 10:55pm Power of Pharmacoepidemiologist Yes October 10:55pm Advance Directive Response Recorded Date/ Time Name of Medical Power of Pharmacoepidemiologist Ganga diggs October 30, 2022 10:55pm Name of Medical Power of Pharmacoepidemiologist Ganga ORTA n November 06, 2022 4:26pm Living Will Yes November 06, 2022 4:26pm Power of Pharmacoepidemiologist Yes October 4:26pm Advance Directive Response Recorded Date/ Time Name of Medical Power of Pharmacoepidemiologist Ganga diggs October 30, 2022 9:55pm Name of Medical Power of Pharmacoepidemiologist Ganga ORTA n November 06, 2022 3:26pm Living Will Yes November 06, 2022 3:26pm Power of Pharmacoepidemiologist Yes October 3:26pm Advance Directive Response Recorded Date/ Time Name of Medical Power of Pharmacoepidemiologist Ganga ORTA n November 06, 2022 3:26pm Living Will Yes November 06, 2022 3:26pm Power of Pharmacoepidemiologist Yes October 3:26pm Advance Directive Response Recorded Date/ Time Living Will Yes November 06, 2022 4:26pm Power of Pharmacoepidemiologist Yes October 4:26pm Documents on File Type Date Recorded Patient Financial Supervisor Expl anation Advance Directives and Living Will 01/06/2017 Advance Directive Response Recorded Date/ Time Do you have a Healthcare Power of Pharmacoepidemiologist? No July 25, 2024 2:44pm Advance Directive Response Recorded Date/ Time Do you have a Healthcare Power of Pharmacoepidemiologist? No July 25, 2024 6:26pm Advance Directive Response Recorded Date/ Time Do you have a Healthcare Power of Pharmacoepidemiologist? No August 02, 2024 1:06pm Advance Directive Response Recorded Date/ Time Do you have a Healthcare Power of Pharmacoepidemiologist? No July 25, 2024 6:26pm Do you have a Healthcare Power of Pharmacoepidemiologist? No August 02, 2024 1:06pm Hospital Course Note Send Summary:Discharge Summa ry Providers:Provider RoleProvider Name? ReferringManny Arana? Ventura Garcia? ConsultingManny Arana? Benjy Puritt? AttendingManny Arana Note Recipients: Manny Arana, Benjy Phan MD - [phone] [Preferred]Ventura Thacker MD Discharge: Summary:Admission Date: .02-Jul-2017 14:57:00Discharge Date: 36-Lns-5693Jshpbfere Physician at Discharge: Manny Arana PAdmission Reason: Abdominal pain(1)Final Discharge Diagnoses: Acute bowel obstruction, Cecal volvulus,Hypokalemia, Magnesium deficiency,Procedures: Date: 03-Jul-2017 00:48:00Procedure Name: US GUIDED PLACEMENT LEFT IJ TLC / ELAP / ANDREIA / RIGHT COLECTOMY/ STAPLED ILEOCOLONIC ANASTAMOSIS / BILATERAL TAP BLOCK Condition at Discharge: SatisfactoryDisposition at Discharge: DC/Xfer to Swing BedVital Signs: T [id number]/7595%Date/Time07/09 7: 7: 7: 7: 7:36Range(36.6C - 37.5C ) (82 - 91 ) (18 - 18 ) (more content not included)... Note Send Summary:Discharge Summa ry Providers:Provider RoleProvider Name? ReferringManny Arana? AttendingManny Arana Note Recipients: Manny Arana, Jw Phan MD Discharge: Summary:Admission Date: .09-Jul-2017 08:05:00Discharge Date: 32-[id number]-[id number] Physician at Discharge: Manny Arana PAdmission Reason: Cecal VolvulusFinal Discharge Diagnoses: Cecal volvulus, Clostridium difficile colitis,Procedures: Right hemicolectomyCondition at Discharge: SatisfactoryDisposition at Discharge: Fdc FacilityVital Signs: T [id number]/6894%Date/Time07/17 6: 6: 6:236 6: 6:23Range(36.4C - 36.7C ) (74 - [...] Send Summary:Discharge Summa ry Providers:Provider RoleProvider Name? Valerie Jacob? AttendingValerie Jiang? Manny Mcbride P? Benjy Pruitt Note Recipients: Manny Arana MDManohar, Chenguttai Jayaram, MD - [phone] [Preferred]Valerie Jiang MD Discharge: Summary:Admission Date: .26-Jul-2017 13:45:00Discharge Date: 59-[id number]-[id number] Physician at Discharge: Edwin Jiang Reason: Encephalopathy; Hypercalcemia(1)Final Discharge Diagnoses: RADHA, Encephalopathy, HypercalcemiaProcedures: .Condition at Discharge: SatisfactoryDisposition at Discharge: Fdc FacilityVital Signs: T [id number]/6498%Date/Time07/29 13:5207/29 13:5207/29 13: 13:5207/29 13:52Range(36.6C - 36.8C ) (64 - 80 ) (16 - 17 ) (131 - 154 )/ (64 - 73 ) (97%- 98% )Physical Exam:Constitutional: Cachetic, awake/alert/oriented x3, no distress, calm andcooperativeEyes: PERRL, EOMI, clear scleraENMT: mucous membranes dry, no apparent injury, (more content not included)... Note Send Summary:Discharge Summa ry Providers:Provider RoleProvider Name? Aria Burnette? AttendingAria Gandhi? Clif Morataya? Manny Mcbride P? Benjy Pruitt Note Recipients: Benjy Garnett MD - [phone] [Preferred] Discharge: Summary:Admission Date: .09-Oct-2017 12:52:00Discharge Date: 01-Tdv-6831Pxlutahsy Physician at Discharge: Kan Gandhi Reason: abd pain, diarrhea, weakness, not feeling well(1)Final Discharge Diagnoses: Acute encephalopathy, Clostridium difficile carrier,Clostridium difficile colitis, Diarrhea, Hypokalemia, Hypomagnesemia, Proteinmalnutrition unspecified (disorder),Procedures: NoneCondition at Discharge: SatisfactoryDisposition at Discharge: Fdc FacilityVital Signs: T [id number]/8395%Date/Time10/13 14: 14: 14: 14: 14:00Range(36.8C - 37.4C [...] ILEOCOLONIC ANASTAMOSIS / BILATERAL TAP BLOCKSurgeon: SUMITResident/Fellow/Other Emt B: Nura Blood Loss (mL): 50Specimen: yesFindings: CECAL VOLVULUS WITH NON VIABLE CAECUM / DISTENDED EDEMATOUS BOWEL /MULTIPLE ADHESIONS IN THE UPPER ABDOMEN / STOMACH COULD NOT BE FREED DUE TOLARGE HERNIAElectronic Signatures:Manny Arana) (Signed 03-Jul-2017 00:51) Authored: Post Operative Note, Signature/Cosignature/AttestationLast Updated: 03-Jul-2017 00:51 by Manny Arana) Note Send Summary:Discharge Summa ry Providers:Provider RoleProvider Name? ReferringWajaminrSpencer? Jessenia Solis? ConsultingVentura Thacker? ConsultingDiego Obregon O.? ConsultingNela Collado? PrimaryBenjy Garnett? AttendingJessenia Tapia Note Recipients: Benjy Garnett MD - [phone] [Preferred]Spencer Hardy MD Discharge: Summary:Admission Date: .26-Aug-2017 02:30:00Discharge Date: 60-Mab-0649Besbujgxy Physician at Discharge: Jessenia Tapia ThereseAdmission Reason: SBO(1)Final Discharge Diagnoses: Small bowel obstructionProcedures: noneCondition at Discharge: FairDisposition at Discharge: Fdc FacilityVital Signs: T [id number]/7694%Date/Time09/01 4: 4: 4: 4: 4:36Range(36.5C - 37.7C [...] Recipients: Magui Stuart, Benjy Phan MD - [phone] [Preferred] Discharge: Summary:Admission Date: .05-Sep-2017 06:05:00Discharge Date: 02-Vtu-2270Rftcnydxb Physician at Discharge: CarrolAdmission Reason: Acute encephalopathy(1)Final Discharge Diagnoses: Acute encephalopathy-resolvedProbable cause secondary to fallCortical brain contusion Severe protein calorie malnutritionProcedures: noneCondition at Discharge: satisfactoryDisposition at Discharge: [facility] [place] [facility]: T [id number]/7094%Date/Time09/07 19: 19: 19: 19: 19:58Range(36.5C - 37C [...] ILEOCOLONIC ANASTAMOSIS / BILATERAL TAP BLOCKSurgeon: GOELResident/Fellow/Other Emt B: Nura Blood Loss (mL): 50Specimen: yesFindings: CECAL [...] chest 2 views Christ Gardiner DO [address] [facility], [address] [place] [address] Referral ID Status Reason Start Date Expiration Date Visits Requested Visits Authorized [id number] Authorized Perform Procedure 06/19/2022 12/16/2022 1 1 [...] WORK neuro symptoms LAB WORK LABWORK LABWORK GROUP HOME LAB WORK Reason for Visit History of CAD (wild nary artery disease) Acute CVA (cerebrovascular accident) Chief Complaint ACUTE CVA ACUTE CVA ACUTE CVA ACUTE CVA ACUTE CVA LAB WORK neuro symptoms LAB WORK LABWORK LABWORK GROUP HOME LAB WORK DYSPNEA Reason for Visit History of CAD (wild nary artery disease) Acute CVA (cerebrovascular accident) Chief Complaint ACUTE CVA ACUTE CVA ACUTE CVA ACUTE CVA ACUTE CVA LAB WORK neuro symptoms LAB WORK LABWORK LABWORK GROUP HOME LAB WORK DYSPNEA GROUP HOME LAB WORK LABWORK Reason for Visit History of CAD (wild nary artery disease) Acute CVA (cerebrovascular accident) Chief Complaint LAB WORK neuro symptoms LAB WORK LABWORK LABWORK GROUP HOME LAB WORK DYSPNEA GROUP HOME LAB WORK LABWORK GROUP HOME LAB WORK Chief Complaint GROUP HOME LAB WOR K LABWORK GROUP HOME LAB WORK LABWORK GROUP HOME LAB WORK Chief Complaint Admit Date GROUP HOME LAB WORK January 25 5:00am GROUP HOME LAB WORK February 07 5:45am GROUP HOME LAB WORK February 08 5:00am GROUP HOME LAB WORK April 14, 2024 5: 00am [...] 2024 4:51 pm Chief Complaint Admit Date GROUP HOME LAB WORK April 14, 2024 5: 00am ANEMIA, GI BLEED August 02, 2024 5:20 pm Reason for Visit Admit Date Altered mental status August 02, 2024 5: 20pm Anemia August 02, 2024 5:20 pm GI bleed August 02, 2024 5:20 pm Chief Complaint Admit Date GROUP HOME LAB WORK April 14, 2024 5: 00am [...] 20pm Anemia August 02, 2024 5:20 pm Chief Complaint [...] HIP FRACTURE July 28, 2024 7 :53am GROUP HOME LAB WORK August 01, 2024 5: 00am LAB WORK August 02, 2024 5:00 am [...] Room 2 August 17, 2024 9:47a m GROUP HOME LAB WORK September 13, 2024 5 :00am GROUP HOME LAB WORK October 25 4:00am Reason for Visit Admit Date Closed intertrochanteric [...] 20pm Anemia August 02, 2024 5:20 pm Closed intertrochanteric fracture of rig ht hip August 17, 2024 8:49am History of total right knee replacement August 17, 2024 8:49am Knee pain, right August 17, 2024 8:49a m Orthopedic aftercare August 17, 2024 8:49 am Additional Source Comments INFORMATION SOURCE (unrecogn ized section and content) DATE CREATED AUTHOR 01/17/2018 [facility] DATE CREATED AUTHOR AUTHOR'S ORGANIZ ATION 01/21/2018 [facility] DATE CREATED AUTHOR AUTHOR'S ORGANIZ ATION 01/30/2018 [facility] DATE CREATED AUTHOR AUTHOR'S ORGANIZ ATION 12/21/2020 [facility] DATE CREATED AUTHOR AUTHOR'S ORGANIZ ATION 06/02/2022 [facility] DATE CREATED AUTHOR AUTHOR'S ORGANIZ ATION 06/14/2022 [facility] DATE CREATED AUTHOR AUTHOR'S ORGANIZ ATION 07/21/2022 [facility] DATE CREATED AUTHOR AUTHOR'S ORGANIZ ATION 09/13/2022 [facility] DATE CREATED AUTHOR AUTHOR'S ORGANIZ ATION 10/08/2022 [facility] DATE CREATED AUTHOR AUTHOR'S ORGANIZ ATION 10/16/2022 [facility] DATE CREATED AUTHOR AUTHOR'S ORGANIZ ATION 10/28/2022 [facility] DATE CREATED AUTHOR AUTHOR'S ORGANIZ ATION 08/04/2024 [facility] DATE CREATED AUTHOR AUTHOR'S ORGANIZ ATION 12/05/2024 [facility] Reason for Visit (unrecogniz ed section and content) Reason Comments Follow-up Bone density results -discuss meds Reason Comments Follow-up 1 week fuv HYPOXIA Specialty Diagnoses / Procedures Referred By Naomi young Referred To Contact Primary Care Diagnoses Hypoxia Benign essential hypertension Procedures Follow Up In Advanced Primary Care - PCP Christ Gardiner DO [address] [facility], [facility] [address] [place] [address] Referral ID Status Reason Start Date Expiration Date V isits Requested Visits Authorized [id number] Authorized 06/01/2022 11/28/2022 1 1 Reason Comments Follow-up Lungs Specialty Diagnoses / Procedures Referred By Naomi young Referred To Contact Primary Care Diagnoses Hypoxia Pneumonia of right lower lobe due to infectious organism Abdominal pain, unspecified abdominal location Procedures Follow Up In Advanced Primary Care - PCP Christ Gardiner DO [address] [facility], [facility] [address] [place] [address] Referral ID Status Reason Start Date Expiration Date V isits Requested Visits Authorized [id number] Authorized 06/10/2022 12/07/2022 1 1 Reason Comments Follow-up Pt presents for 6 mo nth follow up- pt states that her allergies have been bothering her. Specialty Diagnoses / Procedures Referred By Contac t Referred To Contact Primary Care Diagnoses Osteoporosis, unspecified osteoporosis type, unspecified pathological fracture presence Benign essential hypertension Coronary artery disease without angina pectoris, unspecified vessel or lesion type, unspecified whether [place] or transplanted heart Procedures Follow Up In Advanced Primary Care - PCP Christ Gardiner DO [address] [facility], [address] [place] [address] Referral ID Status Reason Start Date Expiration Date V isits Requested Visits Authorized [id number] Authorized 04/15/2022 10/12/2022 1 1 Reason Comments [...] constipation type Procedures . Akil Lucio MD [address] [place] [address] [facility] [address] [address] [place] [address] Referral ID Status Reason Start Date Expiration Date Visits Re quested Visits Authorized [id number] 1 1 Care Teams (unrecognized sec tion [...] Active Start: July 27, 2024 Dr. Kam Ocmapo Sr. , DO Primary Care Provider Active [...] Start: July 28, 2024 Dr. Kam Ocampo SrLeigh , DO Primary Care Provider Active Start: [...] Status: Active Member Role Status Dates Dr. aJcobo Moya , DO Emergency Provider Active Start: [...] MD Attending Provider, Referring Pro vider Active Quick Mixer Operator Relationship Specialty Start Date End Date Christ Gardiner DO [address] [place] [address], [address] [place] [address] PCP - General 05/19/06 Apple Aguilar, POLICYHOLDER INFORMATION CLERK-DATA STORAGE SPECIALIST [address], [address] [place] [address] PCP - [facility] Attributed Provider 08/09/21 Quick Mixer Operator Relationship Specialty Start Date End Date Christ Gardiner DO [address] [facility], [address] [place] [address] PCP - General 05/19/06 Apple Aguilar, POLICYHOLDER INFORMATION CLERK-DATA STORAGE SPECIALIST [address], [address] [place] [address] PCP - MSS[facility] ACO Attributed Provider 08/09/21 Quick Mixer Operator Relationship Specialty Start Date End Date Christ Gardiner DO [address] [facility], [address] [place] [address] PCP - General 05/19/06 Apple Aguilar, POLICYHOLDER INFORMATION CLERK-DATA STORAGE SPECIALIST [address], [address] [place] [address] PCP - [facility] Attributed Provider 08/09/21 Quick Mixer Operator Relationship Specialty Start Date End Date Christ Gardiner DO [address] [facility], [address] [place] [address] PCP - General 05/19/06 Christ Gardiner DO [address] [facility], [facility] [address] [place] [address] PCP - [facility] Attributed Provider 05/10/22 Quick Mixer Operator Relationship Specialty Start Date End Date Saida Gardiner [address] [facility] [address] [place] [address] PCP - General Model Builder Display 10/10/22 Team Status: Active Member Role Status [...] Admit Provider, Other Pro vider Active Dr. eNymar Cunningham MD Attending Provider, Other Provi lizeth [...] Burgess MD Other Provider Active Melania Perez LICENSED SALES PRODUCER, LICENSED SALES PRODUCER-C Other Provider Active Team Status: Inactive Member [...] Burgess MD Other Provider Active Melania Perez LICENSED SALES PRODUCER, LICENSED SALES PRODUCER-C Other Provider Active Team Status: Active Member [...] Care Provider Active Dr. Yandel Matute , Attending Provider, Emergency Provider Active Team Status: Inactive Member Role Status Dates Dr. Kam Ocampo Sr. , DO Primary Care Provider Active Dr. Gino Blas MD Attending Provider, Referadan g Provider Active Quick Mixer Operator Relationship Specialty Start Date End Date Christ Gardiner DO [address] [facility], [address] [place] [address] PCP - General 05/19/06 Apple Aguilar, POLICYHOLDER INFORMATION CLERK-DATA STORAGE SPECIALIST [address], [address] [place] [address] PCP - [facility] Attributed Provider 08/09/21 [...] August 02, 2024 Dr. Jamie Beltrán , DO Emergency [...] Role/Relationship Status Dates Dr. Jacobo Moya , Emergency [...] Active Start: July 25, 2024 Dr. Thanh Borruso , DO Attending Provider Active Start: July [...] Start: July 27, 2024 Dr. Thanh Mclaughlin DO Attending Provider Active Start: July 27, [...] Role/Relationship Status Dates Dr. Jacobo Moya , Emergency Provider Active Start: July 28, 2024 Dr. Kam Ocampo Sr. , DO Primary Care Provider Active Start: July 28, 2024 Dr. Hayden Diaz , Admit Provider Active Start: July 28, 2024 [...] July 28, 2024 Dr. Hayden Diaz DO Other Provider Active Start: July 28, [...] August 05, 2024 Dr. Jamie Beltrán , Emergency Provider [...] August 05, 2024 Dr. Hayden Diaz , Other Provider Active Start: August 02, 2024 [...] Start: August 03, 2024 Dr. Hayden Diaz DO Other Provider Active Start: August 03, [...] August 04, 2024 Dr. Jamie Beltrán , DO Emergency Provider Active Start: August 04, 2024 Dr. Janine Harrison MD Admit Provider Active Star t: August 04, 2024 Dr. Janine Harrison MD Referring Provider Active Start: August 04, 2024 Dr. Janine Harrison MD Other Provider Active Star t: August 04, 2024 Dr. Neymar Cunningham MD Other Provider Active Sta rt: August 04, 2024 Dr. Hayedn Diaz , Other Provider Active Start: August 04, 2024 Dr. Nomi Kee DO Attending Provider Active Start: August 04, 2024 Team Status: Active Member Role/Relationship Status Dates Dr. Kam Ocampo Sr. , DO Primary Care Provider Active Start: August 04, 2024 Dr. Jamie Beltrán DO Emergency Provider Active Start: August 04, 2024 [...] August 05, 2024 Dr. Jamie Beltrán , Emergency Provider Active Start: August 05, 2024 [...] rt: August 05, 2024 Dr. Hayden Diaz , DO Other Provider Active Start: August 05, 2024 Team Status: Inactive Member Role/Relationship Status Dates Dr. Jacobo oMya DO Emergency Provider Active Start: July 25, [...] July 26, 2024 Dr. Hayden Diaz DO Admit Provider Active Start: July 26, [...] Start: July 27, 2024 Dr. Hayden Diaz DO Other Provider Active Start: July 27, 2024 Dr. Thanh Mclaughlin DO Attending Provider Active Start: July 27, [...] Start: July 27, 2024 Dr. Hayden Diaz DO Admit Provider Active Start: July 27, 2024 Dr. Hayden Diaz DO Other Provider Active Start: July 27, [...] Role/Relationship Status Dates Dr. Jacobo Moya , Emergency [...] August 05, 2024 Dr. Jamie Beltrán , Emergency Provider [...] Start: August 17, 2024 Dr. Thanh Mclaughlin DO [...] 2024 End: August 17, 2024 Dr. Kam Ocampo Sr. , DO Referring Provider Active Start: August 17, 2024 End: August 17, 2024 Dr. Thanh Mclaughlin DO Attending Provider Active Start: August 17, 2024 End: August 17, 2024 Team Status: Active Member Role/Relationship Status Dates Kam FUCHS MD Primary care physician Active Team Status: Inactive Member Role/Relationship Status Dates Dr. Jacobo Moya , DO Emergency Departm ent Physician Active Start: July 25, 2024 End: July 28, 2024 Dr. Kam Ocampo Sr. , DO Primary care physician Activ e Start: July 25, 2024 End: July 28, 2024 Dr. Hayden Diaz DO Admitting physician Active Start: July 25 End: July 28, 2024 Dr. Hayden Diaz , Nurse Practitioner Active Start: July 25 End: July 28, 2024 Dr. Thanh Mclaughlin DO Nurse Practitioner Active Start: July 25, 2024 End: July 28, 2024 Dr. Neymar Cunningham MD Attending physician Active Start: July 25, 2024 End: July 28, 2024 Team Status: Active Member Role/Relationship Status Dates Dr. Jacobo Moya , DO Emergency Departm ent Physician Active Start: July 25, 2024 Dr. Kam Ocampo Sr. , DO Primary care physician Activ e Start: July 25, 2024 Dr. Thanh Mclaughlin DO Attending physician Active Start: July 25, 2024 Dr. Neymar Cunningham MD Referring Provider Active Start: July 25, 2024 Team Status: Active Member Role/Relationship Status Dates Dr. Kam Ocampo Sr. , DO Primary care physician Activ e Start: July 26, 2024 Dr. Kaden Corcoran MD Attending physician Active Start: July 26, 2024 Team Status: Active Member Role/Relationship Status Dates Dr. Jacobo Moya , DO Emergency Departm ent Physician Active Start: July 26, 2024 Dr. Kam Ocampo Sr. , DO Primary care physician Activ e Start: July 26, 2024 Dr. Hayden Diaz , DO Admitting physician Active Start: July 26 Dr. Hayden Diaz , DO Nurse Practitioner Active Start: July 26 Dr. Thanh Mclaughlin , DO Nurse Practitioner Active Start: July 26, 2024 Dr. Neymar Cunningham MD Attending physician Active Start: July 26, 2024 Dr. Neymar Cunningham MD Nurse Practitioner Active Start: July 26, 2024 Team Status: Active Member Role/Relationship Status Dates Dr. Jacobo Moya , DO Emergency Departm ent Physician Active Start: July 26, 2024 Dr. Kam Ocampo Sr. , DO Primary care physician Activ e Start: July 26, 2024 Dr. Hayden Diaz DO Admitting physician Active Start: July 26 Dr. Hayden Diaz , DO Nurse Practitioner Active Start: July 26 Dr. Thanh Mclaughlin DO Attending physician Active Start: July 26, 2024 Dr. Thanh Mclaughlin DO Nurse Practitioner Active Start: July 26, 2024 Dr. Neymar Cunningham MD Referring Provider Active Start: July 26, 2024 Dr. Neymar Cunningham MD Nurse Practitioner Active Start: July 26, 2024 Team Status: Active Member Role/Relationship Status Dates Dr. Jacobo Moya , DO Emergency Departm ent Physician Active Start: July 27, 2024 Dr. Kam Ocampo Sr. , DO Primary care physician Activ e Start: July 27, 2024 Dr. Hayden Diaz DO Admitting physician Active Start: July 27 Dr. Hayden Diaz DO Nurse Practitioner Active Start: July 27 Dr. Thanh Mclaughlin DO Attending physician Active Start: July 27, 2024 Dr. Thanh Mclaughlin DO Nurse Practitioner Active Start: July 27, 2024 Dr. Neymar Cunningham MD Nurse Practitioner Active Start: July 27, 2024 Team Status: Active Member Role/Relationship Status Dates Dr. Jacobo Moya , DO Emergency Departm ent Physician Active Start: July 27, 2024 Dr. Kam Ocampo Sr. , DO Primary care physician Activ e Start: July 27, 2024 Dr. Hayden Diaz , DO Admitting physician Active Start: July 27 Dr. Hayden Diaz , DO Nurse Practitioner Active Start: July 27 Dr. Thanh Mclaughlin , Nurse Practitioner Active Start: July 27, 2024 Dr. Neymar Cunningham MD Attending physician Active Start: July 27, 2024 Dr. Neymar Cunningham MD Nurse Practitioner Active Start: July 27, 2024 Team Status: Active Member Role/Relationship Status Dates Dr. Jacobo Moya , DO Emergency Departm ent Physician Active Start: July 28, 2024 Dr. Kam Ocampo Sr. , DO Primary care physician Activ e Start: July 28, 2024 Dr. Hayden Diaz , DO Admitting physician Active Start: July 28 Dr. Hayden Diaz , DO Nurse Practitioner Active Start: July 28 Dr. Thanh Mclaughlin , Attending physician Active Start: July 28, 2024 Dr. Thanh Mclaughlin , Nurse Practitioner Active Start: July 28, 2024 Dr. Neymar Cunningham MD Nurse Practitioner Active Start: July 28, 2024 Team Status: Active Member Role/Relationship Status Dates Dr. Jacobo Moya , DO Emergency Departm ent Physician Active Start: July 28, 2024 Dr. Kam Ocampo Sr. , DO Primary care physician Activ e Start: July 28, 2024 Dr. Hayden Diaz , DO Admitting physician Active Start: July 28 Dr. Hayden Diaz , DO Nurse Practitioner Active Start: July 28 Dr. Thanh Mclaughlin , Nurse Practitioner Active Start: July 28, 2024 Dr. Neymar Cunningham MD Attending physician Active Start: July 28, 2024 Dr. Neymar Cunningham MD Nurse Practitioner Active Start: July 28, 2024 Team Status: Inactive Member Role/Relationship Status Dates Dr. Kam Ocampo Sr. , DO Primary care physician Activ e Start: August 01, 2024 End: August 01, 2024 Kam FUCHS MD Attending physician Active Start: August 01, 2024 End: August 01, 2024 Team Status: Active Member Role/Relationship Status Dates Dr. Kam Ocampo Sr. , DO Primary care physician Activ e Start: August 02, 2024 Kam FUCHS MD Attending physician Active Start: August 02, 2024 Team Status: Inactive Member Role/Relationship Status Dates Dr. Kam Ocampo Sr. , DO Primary care physician Activ e Start: August 02, 2024 End: August 05, 2024 Dr. Jamie Beltrán , DO Emergency Departme nt Physician Active Start: August 02, 2024 End: August 05, 2024 Dr. Janine Harrison MD Admitting physician Active Start: August 02, 2024 End: August 05, 2024 Dr. Janine Harrison MD Referring Provider Active Start: August 02, 2024 End: August 05, 2024 Dr. Janine Harrison MD Nurse Practitioner Active Start: August 02, 2024 End: August 05, 2024 Dr. Neymar Cunningham MD Attending physician Active Start: August 02, 2024 End: August 05, 2024 Dr. Hayden Diaz , DO Nurse Practitioner Active Start: August 02 End: August 05, 2024 Team Status: Active Member Role/Relationship Status Dates Dr. Kam Ocampo Sr. , DO Primary care physician Activ e Start: August 03, 2024 Dr. Jamie Beltrán , DO Emergency Departme nt Physician Active Start: August 03, 2024 Dr. Janine Harrison MD Admitting physician Active Start: August 03, 2024 Dr. Janine Harrison MD Nurse Practitioner Active Start: August 03, 2024 Dr. Hayden Diaz , Attending physician Active Start: August 03 Dr. Hayden Diaz , Nurse Practitioner Active Start: August 03 Team Status: Active Member Role/Relationship Status Dates Dr. Kam Ocampo Sr. , DO Primary care physician Activ e Start: August 03, 2024 Dr. Jamie Beltrán , DO Emergency Departme nt Physician Active Start: August 03, 2024 Dr. Janine Harrison MD Admitting physician Active Start: August 03, 2024 Dr. Janine Harrison MD Referring Provider Active Start: August 03, 2024 Dr. Janine Harrison MD Nurse Practitioner Active Start: August 03, 2024 Dr. Hayden Diaz , Nurse Practitioner Active Start: August 03 Dr. Nomi Kee DO Attending physician Active Start: August 03, 2024 Team Status: Active Member Role/Relationship Status Dates Dr. Kam Ocampo Sr. , DO Primary care physician Activ e Start: August 04, 2024 End: August 04, 2024 Dr. Colten Palacios MD Attending physician Active Start: August 04, 2024 End: August 04, 2024 Dr. Hayden Diaz DO Referring Provider Active Start: August 04, 2024 End: August 04, 2024 Team Status: Active Member Role/Relationship Status Dates Dr. Kam Ocampo Sr. , DO Primary care physician Activ e Start: August 04, 2024 Dr. Jamie Beltrán , DO Emergency Departme nt Physician Active Start: August 04, 2024 Dr. Janine Harrison MD Admitting physician Active Start: August 04, 2024 Dr. Janine Harrison MD Referring Provider Active Start: August 04, 2024 Dr. Janine Harrison MD Nurse Practitioner Active Start: August 04, 2024 Dr. Neymar Cunningham MD Nurse Practitioner Active Start: August 04, 2024 Dr. Hayden Diaz DO Nurse Practitioner Active Start: August 04 Dr. Nomi Kee DO Attending physician Active Start: August 04, 2024 Team Status: Active Member Role/Relationship Status Dates Dr. Kam Ocampo Sr. , DO Primary care physician Activ e Start: August 04, 2024 Dr. Jamie Beltrán , DO Emergency Departme nt Physician Active Start: August 04, 2024 Dr. Janine Harrison MD Admitting physician Active Start: August 04, 2024 Dr. Janine Harrison MD Nurse Practitioner Active Start: August 04, 2024 Dr. Neymar Cunningham MD Attending physician Active Start: August 04, 2024 Dr. Neymar Cunningham MD Nurse Practitioner Active Start: August 04, 2024 Dr. Hayden Diaz DO Nurse Practitioner Active Start: August 04 Team Status: Active Member Role/Relationship Status Dates Dr. Kam Ocampo Sr. , DO Primary care physician Activ e Start: August 05, 2024 Dr. Jamie Beltrán , DO Emergency Departme nt Physician Active Start: August 05, 2024 Dr. Janine Harrison MD Admitting physician Active Start: August 05, 2024 Dr. Janine Harrison MD Nurse Practitioner Active Start: August 05, 2024 Dr. Neymar Cunningham MD Attending physician Active Start: August 05, 2024 Dr. Neymar Cunningham MD Nurse Practitioner Active Start: August 05, 2024 Dr. Hayden Diaz , Nurse Practitioner Active Start: August 05 Team Status: Inactive Member Role/Relationship Status Dates Dr. Kam Ocampo Sr. , DO Primary care physician Activ e Start: August 17, 2024 End: August 17, 2024 Dr. Kam Ocampo Sr. , DO Referring Provider Active Start: August 17, 2024 End: August 17, 2024 Dr. Thanh Mclaughlin , Attending physician Active Start: August 17, 2024 End: August 17, 2024 Team Status: Inactive Member Role/Relationship Status Dates Dr. Kam Ocampo Sr. , DO Primary care physician Activ e Start: August 17, 2024 End: August 17, 2024 Dr. Kaden Corcoran MD Attending physician Active Start: August 17, 2024 End: August 17, 2024 Team Status: Active Member Role/Relationship Status Dates Dr. Kam Ocampo Sr. , DO Primary care physician Activ e Start: September 13, 2024 Kam FUCHS MD Attending physician Active Start: September 13, 2024 Team Status: Active Member Role/Relationship Status Dates Kam FUCHS MD Primary care physician Active Start: October 25, 2024 Kam FUCHS MD Attending physician Active Start: October 25, 2024 Kam FUCHS MD Referring Provider Active S tart: October 25, 2024 Scheduled Active and Recently Administ ered Medications (unrecognized section and content) Medication Order 10/14/2022 10/15/2022 10/16/2022 atorvastatin (Lipitor) tablet 10 mg 10 mg, Oral, Daily, First dose on 10/11/22 at 0915 0922 (Given - Provider: Colette Sanders RN) 0824 (Given - Provider: Shannon Orantes RN) 0859 (Given - Provider: Sophia Moreira, CINTHYA) azelastine (Astelin) 0.1 % nasal spray 1 spray 1 spray, Each Nostril, 2 times daily, First dose on 10/11/22 at 0915 0923 (Given - Provider: Colette Sanders RN)2099 (Given - Provider: Rena Luna, CINTHYA) 824 (Given - Provider: Shannon Orantes, RN)2052 (Given - Provider: Autumn Kelly RN) 09 (Given - Provider: Sophia Moreira RN) buPROPion XL (Wellbutrin XL) 24 hr tablet 150 mg 150 mg, Oral, Daily, First dose on 10/11/22 at 0915, Do not crush, chew, or split. 921 (Given - Provider: Colette Sanders RN) 08 (Given - Provider: Shannon Orantes RN) 0859 (Given - Provider: Sophia Moreira RN) cetirizine (ZyrTEC) tablet 10 mg 10 mg, Oral, Daily, First dose on 10/11/22 at 0915 09 (Given - Provider: Colette Sanders RN) [...] CINTHYA) 823 (Given - Provider: Shannon Orantes, RN)2049 (Given - Provider: Autumn Kelly, CINTHYA) 08 (Given - Provider: Sophia Moreira, RN) isosorbide mononitrate ER (Imdur) 24 hr tablet 60 mg 60 mg, Oral, Daily, First dose on 10/11/22 at 0915, Do not chew or crush ER tablets; may be divided in half. Due to insoluble matrix embedding, ER tablets that are scored may be split. 921 (Given - Provider: Colette Sanders RN) 823 (Given - Provider: Shannon Orantes, CINTHYA) 08 (Given - Provider: Sophia Moreira, RN) meropenem (Merrem) 1,000 mg in sodium [...] Luna RN) 2050 (Given - Provider: Autumn Kelly, CINTHYA) potassium chloride CR (Klor-Con M20) ER tablet 20 mEq 20 mEq, Oral, Daily, First dose on 10/11/22 at 0915, Best given with food and plenty of water to minimize gastric irritation. Do not crush or chew. 0922 (Given - Provider: Colette Sanders RN) 0824 (Given - Provider: Shannon Orantes, RN) 0900 (Given - Provider: Sophia Moreira, RN) senna-docusate sodium (Senokot-S) 8.6-50 MG tablet 2 tablet (CANCELED) 2 tablet, Oral, Daily, First dose on 10/11/22 at 0930 0922 (Given - Provider: Colette Sanders RN) therapeutic multivitamin-minerals (Theragran-M) tablet 1 tablet, Oral, Daily, First dose on 10/11/22 at 0915 0922 (Given - Provider: Colette Sanders RN) 0824 (Given - Provider: Shannon Orantes, CINTHYA) 0859 (Given - Provider: Sophia Moreira, RN) PRN Medication Order 10/14/2022 10/15/2022 10/16/2022 [...] CINTHYA) 0859 (See Alternative - Provider: Sophia Moreira, CINTHYA) acetaminophen (Tylenol) tablet 650 mg(Linked Group 1) 650 mg, Oral, Every 6 hours PRN, mild pain (1-3), fever, For temp greater than 100.4 F (38 C), Starting on Thu10/10/22 at 2105, Maximum dose of acetaminophen is 4000 mg from all sources in 24 hours. 09 (Given - Provider: Colette Sanders RN) 0830 (Given - Provider: Shannon Orantes, RN)2049 (Given - Provider: Autumn Kelly, CINTHYA) 0859 (Given - Provider: Sophia Moreira, RN) dicyclomine (Bentyl) capsule 10 mg 10 mg, Oral, 4 times daily PRN, abdominal cramping, Starting on Thu10/15/22 at 1108 1145 (Given - Provider: Shannon Orantes, RN)1843 (Given - Provider: Shannon Orantes, RN) 0906 (Given - Provider: Sophia Moreira [...] Luna, CINTHYA) 0213 (Given - Provider: Rena Luna RN) ipratropium-albuterol [...] hours PRN, flatulence, Starting on Thu10/14/22 at 20065 (Given - Provider: Rena Luna RN) Linked [...] BE BASED ON THE PRIMARY CLINICAL RECORDS. [employer] [facility]. provides no warranty or guarantee of the accuracy or completeness of information in this document.
[2024-12-05 23:09] LABS: Prothrombin Time (Protime)PT. 13.0 SECONDS (11.7-14.9)
[2024-12-05 23:10] LABS: Partial Thromboplast Time 25.4 Seconds (24.1-36.2)
[2024-12-05 23:19] VITALS: BP 156/89; PULSE 70; RESP 14; O2SAT 98
[2024-12-05 23:27] LABS: Magnesium 1.9 mg/dL (1.5-2.2)
[2024-12-05 23:28] LABS: Anion Gap 10 (5-15); BUN 19 mg/dL (4-19); BUN/Creat Ratio 17.2 RATIO (10-20); Calcium,Total 9.8 mg/dL (7.6-11.0); Carbon Dioxide 27.0 mmol/L (21.0-32.0); Chloride 103 mmol/L (98-108); Estimated Creatinine Clearance 25.63 ml/min (50-250); Glucose 99 mg/dL (70-99); Potassium 5.2 mmol/L (3.3-5.1)
[2024-12-06] VITALS (24 sets, daily range): BP systolic 96–189; BP diastolic 50–96; PULSE 68–90; RESP 12–22; TEMP 36.8–37.1; O2SAT 86–100; BMI 20.1
--- NOTE | 2024-12-06 00:36 | ED.RN ---
0025: FAMILY ALERTED NURSE AT THE NURSES STATION OF CHANGE IN PT. SPEECH. THIS NURSE AND PROVIDER AT BEDSIDE TO ASSESS
[2024-12-06 01:20] LABS: Mucous, Urine 0 SEEN /hpf (<or=2+)
[2024-12-06 01:23] LABS: Color, Urine Yellow (Yellow); Glucose, Dipstick Normal (Normal); Ketone-Dipstick Negative (Negative); Leukocyte Esterase-Dipstick Negative /ul (Negative); Nitrite-Dipstick Negative (Negative); Occult Blood-Urine Negative /ul (Negative); Protein-Dipstick Negative (Negative); Specific Gravity, Urine 1.005 (1.002-1.030); Urine Bilirubin Dipstick Negative (Negative)
[2024-12-06 01:36] LABS: Red Blood Cells-Urine 0-5 SEEN /hpf (0-5); Squamous Epithelial Cells - UA 0-5 SEEN /hpf (5-10)
--- NOTE | 2024-12-06 02:01 | EX.ED.DYSGE1 ---
HPI History of Present Illness Chief Complaint: Neuro S/Sx Informant: patient, family and SNF Narrative Narrative: Patient is a 89-year-old female who is a DNR comfort care only from the group home. Past medical history of hypertension chronic kidney disease congestive heart failure and previous TIA/stroke. She is currently on Plavix. According to the group home around 8:00 the patient was reportedly slurring her speech. The patient states she did not notice this but once the group home pointed out she then agrees she thought her speech was slightly off. Secondary to this she was sent to the hospital for evaluation. Patient states she believes symptoms lasted for approximately 20-minute. She states there was no other associated symptoms such as vision change/loss or extremity weakness. Upon arrival to the ER patient states that her speech changes have spontaneously resolved [facility] Medical History Anemia TIA (transient ischemic attack) Personal history of other diseases of digestive system Noninfective gastroenteritis and colitis, unspecified Essential hypertension Diaphragmatic hernia without obstruction or gangrene Constipation, unspecified Atherosclerotic heart disease of [place] coronary artery without angina pectoris Other specified disorders of white blood cells Other lack of coordination Hyperthyroidism Gout, unspecified Difficulty in walking, not elsewhere classified Depression, unspecified Calculus of gallbladder and bile duct without cholecystitis without obstruction Age-related physical debility Hypertension Polyneuropathy PVD (peripheral vascular disease) Osteoporosis Hypothyroidism GERD (gastroesophageal reflux disease) Hypertensive heart and chronic kidney disease stage 3 Anxiety Asthma Sleep apnea COPD (chronic obstructive pulmonary disease) Gout CKD (chronic kidney disease) stage 3, GFR 30-59 ml/min Major depressive disorder CHF (congestive heart failure) Home Medications ?Medication ?Instructions ?Recorded ?Last Taken ?Type Lactobacillus-Bifidobacterium 30 1 cap PO DAILY 10/30/22 Unknown History billion cell capsule,delayed release (Ultimate Xuan Probiotic) azelastine 137 mcg (0.1 %) nasal 1 spray intranasal BID nasal spray 10/30/22 Unknown History spray bupropion HCl 150 mg 24 hr tablet, 150 mg PO DAILY 10/30/22 Unknown History extended release doxazosin 2 mg tablet (Cardura) 2 mg PO DAILY 10/30/22 10/30/22 History fluticasone propionate 50 1 spray intranasal DAILY 10/30/22 Unknown History mcg/actuation nasal spray,suspension (24 Hour Allergy Relief) food supplemt, lactose-reduced 8 ml PO DAILY 10/30/22 Unknown History (Ensure oral liquid) gabapentin 600 mg tablet 600 mg PO BID 10/30/22 Unknown History inulin 2 gram chewable tablet 5 g PO DAILY 10/30/22 Unknown History (Fiber Gummies) metoprolol tartrate 25 mg tablet 25 mg PO BID 10/30/22 Unknown History mirtazapine 30 mg tablet 30 mg PO QHS 10/30/22 Unknown History montelukast 10 mg tablet 10 mg PO QHS 10/30/22 Unknown History multivitamin (Daily Multi-Vitamin 1 tab PO DAILY 10/30/22 Unknown History tablet) atorvastatin 40 mg tablet 40 mg PO QHS 20 days #30 tabs 11/02/22 Unknown Rx dicyclomine 10 mg capsule 10 mg PO TID . 07/25/24 Unknown History isosorbide mononitrate 30 mg 30 mg PO DAILY . 07/25/24 Unknown History tablet,extended release 24 hr pantoprazole 40 mg tablet,delayed 40 mg PO DAILY . 07/25/24 Unknown History release potassium chloride 20 mEq 20 meq PO DAILY . 07/25/24 Unknown History tablet,extended release(part/cryst) acetaminophen 500 mg tablet 1,000 mg (2 x 500 mg) PO Q8 #0 tabs 07/28/24 Unknown Rx ascorbic acid (vitamin C) 500 mg 500 mg PO BID #60 tabs 07/28/24 Unknown Rx tablet calcium carbonate 500 mg (2.5 x 200 mg calcium (500 07/28/24 Unknown Rx mg)) PO TIDCM #0 tabs polyethylene glycol 3350 17 17 g PO BID 1 month #1,020 grams 07/28/24 Unknown Rx gram/dose oral powder (Miralax) sennosides 8.6 mg-docusate sodium 2 tab PO BID #0 tabs 07/28/24 Unknown Rx 50 mg tablet (Stimulant Laxative Plus) budesonide 0.5 mg/2 mL suspension 0.5 mg inhalation BID 08/02/24 Unknown History for nebulization cetirizine 5 mg tablet 5 mg PO DAILY 08/02/24 Unknown History cholecalciferol (vitamin D3) 125 125 mcg PO DAILY 08/02/24 Unknown History mcg (5,000 unit) tablet (Vitamin D3) clopidogrel 75 mg tablet 75 mg PO DAILY blood thinner 08/02/24 Unknown History ferrous sulfate 325 mg (65 mg 325 mg PO DAILY 08/02/24 Unknown History iron) tablet ipratropium 0.5 mg-albuterol 3 mg 3 ml inhalation BID 08/02/24 Unknown History (2.5 mg base)/3 mL nebulization soln bisacodyl 10 mg rectal suppository 10 mg NE QDAY PRN constipation 08/17/24 Unknown History calcium carbonate (Oyster Shell 500 mg PO QDAY 08/17/24 Unknown History Calcium 500) emollient applic topical 08/17/24 Unknown History food supplemt, lactose-reduced See Rx Instructions PO QAM 08/17/24 Unknown History 0.04 gram-1.05 kcal/mL oral liquid (Boost Breeze Nutritional) guaifenesin 100 mg/5 mL oral liquid 200 mg PO Q4H PRN cough 08/17/24 Unknown History loperamide 2 mg capsule 2 mg PO Q6H PRN loose stool 08/17/24 Unknown History (Anti-Diarrheal (loperamide)) menthol 5 % topical gel (Biofreeze 1 ea topical BID PRN PRN pain 08/17/24 Unknown History (menthol)) calcium 500 mg (as 1 tab PO BID 12/06/24 Unknown History carbonate)-vitamin D3 5 mcg (200 unit) tablet (Oyster Shell Calcium-Vitamin D3) furosemide 20 mg tablet 20 mg PO DAILY 12/06/24 Unknown History multivitamin with folic acid 400 1 tab PO DAILY 12/06/24 Unknown History mcg tablet (Daily-Carmelo (with folic acid)) nitroglycerin 0.4 mg sublingual 0.4 mg sublingual Q5M 12/06/24 Unknown History tablet Allergy/AdvReac Type Severity Reaction Status Date / Time cephalexin Allergy PT UNSURE Verified 12/05/24 22:31 OF REACTION clarithromycin Allergy PT UNSURE Verified 12/05/24 22:31 OF REACTION clindamycin Allergy PT UNSURE Verified 12/05/24 22:31 OF REACTION doxazosin Allergy NEEDS Verified 12/05/24 22:31 FOLLOW-UP erythromycin base Allergy PT UNSURE Verified 12/05/24 22:31 OF REACTION eszopiclone Allergy PT UNSURE Verified 12/05/24 22:31 OF REACTION Fish Containing Products Allergy PT UNSURE Verified 12/05/24 22:31 (seafood) OF REACTION fish derived Allergy PT UNSURE Verified 12/05/24 22:31 OF REACTION lincomycin Allergy PT UNSURE Verified 12/05/24 22:31 OF REACTION lorazepam Allergy PT UNSURE Verified 12/05/24 22:31 OF REACTION mushroom (mushrooms) Allergy PT UNSURE Verified 12/05/24 22:31 OF REACTION NSAIDS (Non-Steroidal Allergy PT UNSURE Verified 12/05/24 22:31 Anti-Inflamma OF REACTION Penicillins Allergy PT UNSURE Verified 12/05/24 22:31 OF REACTION rofecoxib Allergy PT UNSURE Verified 12/05/24 22:31 OF REACTION salicylates Allergy PT UNSURE Verified 12/05/24 22:31 OF REACTION temazepam Allergy PT UNSURE Verified 12/05/24 22:31 OF REACTION Tetracyclines Allergy PT UNSURE Verified 12/05/24 22:31 OF REACTION trazodone Allergy PT UNSURE Verified 12/05/24 22:31 OF REACTION Surgical History Presence of aortocoronary bypass graft History of cataract surgery History of lysis of adhesions Hx of hysterectomy Hx of total knee replacement Presence of aortocoronary bypass graft Social History Smoking Status: Never smoker ROS ROS ED Constitutional Constitutional ED: Denies chills or fever(s) Eyes Eyes: Denies blurry vision or change in vision ENT ENT ED: Denies sore throat Cardiovascular Cardiovascular: Denies chest pain, palpitations or racing heartbeat Respiratory/Chest Respiratory/Chest: Denies cough or dyspnea Gastrointestinal Gastrointestinal: Denies abdominal pain, diarrhea, nausea or vomiting Genitourinary Genitourinary ED: Denies dysuria Musculoskeletal Musculoskeletal: Denies myalgias Integumentary Denies rash Neurologic Neurologic: Denies headache(s), paresthesias or weakness Hematologic/Lymphatic Hematologic/Lymphatic: Reports easy bleeding and easy bruising EXAM Physical Exam Const Vital Signs: 12/05/24 22:19 12/05/24 23:19 12/06/24 00:04 Temperature 98.5 F Temperature Source Oral Pulse Rate 89 70 88 Respiratory Rate 24 H 14 22 H Blood Pressure 185/78 H 156/89 H 172/67 H Blood Pressure Mean 113 111 102 Pulse Ox 97 98 100 Oxygen Delivery Method Nasal Cannula Nasal Cannula Nasal Cannula Oxygen Flow Rate (L/min) 2 2 2 12/06/24 00:27 12/06/24 00:30 12/06/24 01:00 Temperature Temperature Source Pulse Rate 88 87 90 Respiratory Rate 21 H 12 16 Blood Pressure 159/96 H 159/96 H 169/77 H Blood Pressure Mean 117 117 107 Pulse Ox 95 99 96 Oxygen Delivery Method Nasal Cannula Nasal Cannula Nasal Cannula Oxygen Flow Rate (L/min) 2 2 2 12/06/24 01:30 12/06/24 02:00 Temperature Temperature Source Pulse Rate 89 83 Respiratory Rate 14 14 Blood Pressure 168/75 H 173/75 H Blood Pressure Mean 106 107 Pulse Ox 98 98 Oxygen Delivery Method Nasal Cannula Nasal Cannula Oxygen Flow Rate (L/min) 2 2 Positive well nourished and well developed General Appearance ED: well developed HEENT HEENT Narrative: Normocephalic atraumatic Eyes PERRL and EOMs intact bilaterally General Eye ED: Negative for scleral icterus Neck supple Resp normal respiratory effort and clear to auscultation bilaterally Resp Narrative: Breath sounds are diminished throughout but overall clear to auscultation without signs of respiratory distress Cardio regular rate and regular rhythm Rate: other Other Details: Radial and carotid pulses are equal and symmetric GI normal to inspection, nondistended, normoactive bowel sounds, non-tender, non-distended and no masses GI Narrative: No voluntary guarding or rigidity or pulsatile mass Auscultation: normoactive bowel sounds Palpation: soft Extremity normal to inspection Neuro oriented x3, CN's II-XII intact bilaterally and no sensory deficits noted Neuro Narrative: GCS of 15 Cranial nerves II through XII are grossly intact without focal neurologic deficit No pronator drift no dysmetria no truncal ataxia NIH stroke scale score of 0 Sensorium / Orientation: alert Motor Exam: strength 5/5 throughout Psych mental status grossly normal Skin no rashes or lesions noted Skin Narrative: Bruising to the left humerus consistent with report of fall from a week or so ago without signs of secondary infection such as cellulitis or abscess MDM MDM MDM Narrative Medical decision making narrative: Patient arrived to the ER hypertensive but has a past medical history of this. According to group home patient had a spontaneous onset of difficulty speaking which resolved prior to arrival. Based on this history of difficulty speaking with spontaneous resolution and now stroke scale score of 0 this would classify as a TIA. As her stroke scale score is 0 upon arrival I feel no need to activate a stroke alert. A basic workup will be obtained to check for any potential cause of the difficulty speaking such as acute blood loss anemia acute kidney injury Vona abnormality or urinary tract infection. With the report of a fall a few days ago I will also obtain a CT of the head to rule out traumatic subarachnoid or subdural hemorrhage. With the event occurring earlier today per patient and group home I will also add a CTA of the head and neck to check for significant stenosis. Patient's laboratory studies revealed no clinically significant finding. Head CT showed no sign of bleed or mass. CTA revealed chronic changes without high-grade stenosis. After returning back from CT patient once again had sudden onset with difficulty with speech. The speech was more of a stuttering speech and with this she received a point for dysarthria. There was also mild aphasia associate with this for which she received a second point and a stroke scale score of 2. At this time I did elect to activate an acute stroke alert as the acute changes were happening in front of us. The case was discussed with [facility] neurology. They feel this time with a stroke scale score of 2 and the patient's advanced age as well as the event that occurred around 8 PM this evening they would not recommend TNK and suggest continue our workup to check for an other potential metabolic cause of her symptoms. They also recommend that MRI be obtained to better assess for recent or acute stroke. Therefore based on this recommendation I also contacted the hospitalist. Evaluated the patient in the ER and agrees to accept her to his service for continued monitoring and further workup concerning stuttering stroke versus TIA. However as neurology does not recommend TNK we will hold off on further anticoagulation at this time History & Record Review Discussion w/independent historian: Patient and Family Lab Data Attestation: I reviewed the patient's lab results. Labs: Laboratory Results - last 24 hr 12/05/24 12/06/24 12/06/24 22:33 00:33 01:09 WBC 5.6 RBC 3.55 L Hgb 11.5 L Hct 35.3 L MCV 99.4 H MCH 32.4 H MCHC 32.6 RDW Std Deviation 49.0 H RDW Coeff of Tamera 13.4 Plt Count 217 MPV 9.0 Immature Gran % (Auto) 0.200 Neut % (Auto) 52.4 Lymph % (Auto) 37.3 [place] % (Auto) 8.3 Eos % (Auto) 1.1 Baso % (Auto) 0.7 Absolute Neuts (auto) 2.9 Absolute Lymphs (auto) 2.07 Nucleated RBC % 0 PT 13.0 INR 1.0 APTT 25.4 Sodium 139 Potassium 5.2 H Chloride 103 Carbon Dioxide 27.0 Anion Gap 10 BUN 19 Creatinine 1.09 Estim Creat Clear Calc 25.63 L Est GFR (MDRD) Non-Af 49 L BUN/Creatinine Ratio 17.2 Glucose 99 Calcium 9.8 Magnesium 1.9 Urine Color Yellow Urine Clarity Clear Urine pH 7.0 Ur Specific [place] 1.005 Urine Protein Negative Urine Glucose (UA) Normal Urine Ketones Negative Urine Occult Blood Negative Urine Nitrite Negative Urine Bilirubin Negative Urine Urobilinogen Normal Ur Leukocyte Esterase Negative Urine RBC 0-5 SEEN Urine WBC 0-5 SEEN Ur Squamous Epith Cells 0-5 SEEN Urine Bacteria 0 SEEN Hyaline Casts 0-5 SEEN Urine Mucus 0 SEEN POC Glucose 84 Radiography Diagnostic Testing: Clinical Impression(s) from Imaging Studies Brain CT 12/05/24 22:40 IMPRESSION: No acute cerebrovascular abnormalities. If clinical symptoms persist, further evaluation with MRI may be considered as clinically warranted. No intra or extra-axial acute hemorrhage. Bilateral cerebral microvascular ischemic changes with brain involutional changes. Reading Location: [place] [id number] Head/Neck CTA 12/05/24 22:40 IMPRESSION: Atherosclerosis without high-grade stenosis. Reading Location: [place] [id number] Management Discussion w/another healthcare provider: Hospitalist and Sales Promotion Manager Discharge Plan Dx/Rx/DC Orders Clinical Impression: History of CAD (coronary artery disease), Hypertension, Congestive heart failure, Chronic kidney disease, CVA (cerebral vascular accident) Disposition Disposition: Acute Care Hospital [facility] Discharge Date/Time: 12/06/24 02:53
--- NOTE | 2024-12-06 02:05 | PCM.HP.STD ---
HPI - General General Date of Admission: 12/06/24 Date of Service: 12/06/24 Chief Complaint: Change in mental status HPI Narrative KATHERINE SEPULVEDA, is a 89 F who presents to the emergency room from a senior living with chief complaint of dysarthria. Patient was reportedly found in the senior living with difficulty of speech and sent to the emergency room for evaluation of possible stroke. By the time of her arrival she had resolved and was speaking normally and diagnosed with transient ischemic attack. Initial CT scan was negative for hemorrhagic stroke and initial plan was to send patient back to senior living however she developed another episode of dysarthria after her CT scan. Stroke team was called and she was assigned an NIH score of 2. Patient denies any chest pain, shortness of breath, fevers or chills, nausea vomiting or diarrhea. She continues to have some difficulty speaking at this time. [facility] teleneurologist was called by the ER physician and recommendation was to admit patient for MRI and no thrombolytic therapy was advised. Patient is DNR Comfort Care arrest confirmed by patient and family. Laboratory studies reveal white blood cell count of 5.6, hemoglobin 11.5, hematocrit 35.3, platelets 217, sodium 139, potassium 5.2, chloride 103, bicarb 27, BUN 19, creatinine 1.09, glucose 99, UA negative, CT brain negative, CT a head and neck shows atherosclerosis without high-grade stenosis. Patient will be admitted to progressive care unit for continued workup of stroke. [facility] Medical History Anemia TIA (transient ischemic attack) Personal history of other diseases of digestive system Noninfective gastroenteritis and colitis, unspecified Essential hypertension Diaphragmatic hernia without obstruction or gangrene Constipation, unspecified Atherosclerotic heart disease of [place] coronary artery without angina pectoris Other specified disorders of white blood cells Other lack of coordination Hyperthyroidism Gout, unspecified Difficulty in walking, not elsewhere classified Depression, unspecified Calculus of gallbladder and bile duct without cholecystitis without obstruction Age-related physical debility Hypertension Polyneuropathy PVD (peripheral vascular disease) Osteoporosis Hypothyroidism GERD (gastroesophageal reflux disease) Hypertensive heart and chronic kidney disease stage 3 Anxiety Asthma Sleep apnea COPD (chronic obstructive pulmonary disease) Gout CKD (chronic kidney disease) stage 3, GFR 30-59 ml/min Major depressive disorder CHF (congestive heart failure) Home Medications ?Medication ?Instructions ?Recorded ?Last Taken ?Type Lactobacillus-Bifidobacterium 30 1 cap PO DAILY 10/30/22 Unknown History billion cell capsule,delayed release (Ultimate Xuan Probiotic) azelastine 137 mcg (0.1 %) nasal 1 spray intranasal BID nasal spray 10/30/22 Unknown History spray bupropion HCl 150 mg 24 hr tablet, 150 mg PO DAILY 10/30/22 Unknown History extended release doxazosin 2 mg tablet (Cardura) 2 mg PO DAILY 10/30/22 10/30/22 History fluticasone propionate 50 1 spray intranasal DAILY 10/30/22 Unknown History mcg/actuation nasal spray,suspension (24 Hour Allergy Relief) food supplemt, lactose-reduced 8 ml PO DAILY 10/30/22 Unknown History (Ensure oral liquid) gabapentin 600 mg tablet 600 mg PO BID 10/30/22 Unknown History inulin 2 gram chewable tablet 5 g PO DAILY 10/30/22 Unknown History (Fiber Gummies) metoprolol tartrate 25 mg tablet 25 mg PO BID 10/30/22 Unknown History mirtazapine 30 mg tablet 30 mg PO QHS 10/30/22 Unknown History montelukast 10 mg tablet 10 mg PO QHS 10/30/22 Unknown History multivitamin (Daily Multi-Vitamin 1 tab PO DAILY 10/30/22 Unknown History tablet) atorvastatin 40 mg tablet 40 mg PO QHS 20 days #30 tabs 11/02/22 Unknown Rx dicyclomine 10 mg capsule 10 mg PO TID . 07/25/24 Unknown History isosorbide mononitrate 30 mg 30 mg PO DAILY . 07/25/24 Unknown History tablet,extended release 24 hr pantoprazole 40 mg tablet,delayed 40 mg PO DAILY . 07/25/24 Unknown History release potassium chloride 20 mEq 20 meq PO DAILY . 07/25/24 Unknown History tablet,extended release(part/cryst) acetaminophen 500 mg tablet 1,000 mg (2 x 500 mg) PO Q8 #0 tabs 07/28/24 Unknown Rx ascorbic acid (vitamin C) 500 mg 500 mg PO BID #60 tabs 07/28/24 Unknown Rx tablet calcium carbonate 500 mg (2.5 x 200 mg calcium (500 07/28/24 Unknown Rx mg)) PO TIDCM #0 tabs polyethylene glycol 3350 17 17 g PO BID 1 month #1,020 grams 07/28/24 Unknown Rx gram/dose oral powder (Miralax) sennosides 8.6 mg-docusate sodium 2 tab PO BID #0 tabs 07/28/24 Unknown Rx 50 mg tablet (Stimulant Laxative Plus) budesonide 0.5 mg/2 mL suspension 0.5 mg inhalation BID 08/02/24 Unknown History for nebulization cetirizine 5 mg tablet 5 mg PO DAILY 08/02/24 Unknown History cholecalciferol (vitamin D3) 125 125 mcg PO DAILY 08/02/24 Unknown History mcg (5,000 unit) tablet (Vitamin D3) clopidogrel 75 mg tablet 75 mg PO DAILY blood thinner 08/02/24 Unknown History ferrous sulfate 325 mg (65 mg 325 mg PO DAILY 08/02/24 Unknown History iron) tablet ipratropium 0.5 mg-albuterol 3 mg 3 ml inhalation BID 08/02/24 Unknown History (2.5 mg base)/3 mL nebulization soln bisacodyl 10 mg rectal suppository 10 mg AK QDAY PRN constipation 08/17/24 Unknown History calcium carbonate (Oyster Shell 500 mg PO QDAY 08/17/24 Unknown History Calcium 500) emollient applic topical 08/17/24 Unknown History food supplemt, lactose-reduced See Rx Instructions PO QAM 08/17/24 Unknown History 0.04 gram-1.05 kcal/mL oral liquid (Boost Breeze Nutritional) guaifenesin 100 mg/5 mL oral liquid 200 mg PO Q4H PRN cough 08/17/24 Unknown History loperamide 2 mg capsule 2 mg PO Q6H PRN loose stool 08/17/24 Unknown History (Anti-Diarrheal (loperamide)) menthol 5 % topical gel (Biofreeze 1 ea topical BID PRN PRN pain 08/17/24 Unknown History (menthol)) calcium 500 mg (as 1 tab PO BID 12/06/24 Unknown History carbonate)-vitamin D3 5 mcg (200 unit) tablet (Oyster Shell Calcium-Vitamin D3) furosemide 20 mg tablet 20 mg PO DAILY 12/06/24 Unknown History multivitamin with folic acid 400 1 tab PO DAILY 12/06/24 Unknown History mcg tablet (Daily-[place] (with folic acid)) nitroglycerin 0.4 mg sublingual 0.4 mg sublingual Q5M 12/06/24 Unknown History tablet Allergy/AdvReac Type Severity Reaction Status Date / Time cephalexin Allergy PT UNSURE Verified 12/05/24 22:31 OF REACTION clarithromycin Allergy PT UNSURE Verified 12/05/24 22:31 OF REACTION clindamycin Allergy PT UNSURE Verified 12/05/24 22:31 OF REACTION doxazosin Allergy NEEDS Verified 12/05/24 22:31 FOLLOW-UP erythromycin base Allergy PT UNSURE Verified 12/05/24 22:31 OF REACTION eszopiclone Allergy PT UNSURE Verified 12/05/24 22:31 OF REACTION Fish Containing Products Allergy PT UNSURE Verified 12/05/24 22:31 (seafood) OF REACTION fish derived Allergy PT UNSURE Verified 12/05/24 22:31 OF REACTION lincomycin Allergy PT UNSURE Verified 12/05/24 22:31 OF REACTION lorazepam Allergy PT UNSURE Verified 12/05/24 22:31 OF REACTION mushroom (mushrooms) Allergy PT UNSURE Verified 12/05/24 22:31 OF REACTION NSAIDS (Non-Steroidal Allergy PT UNSURE Verified 12/05/24 22:31 Anti-Inflamma OF REACTION Penicillins Allergy PT UNSURE Verified 12/05/24 22:31 OF REACTION rofecoxib Allergy PT UNSURE Verified 12/05/24 22:31 OF REACTION salicylates Allergy PT UNSURE Verified 12/05/24 22:31 OF REACTION temazepam Allergy PT UNSURE Verified 12/05/24 22:31 OF REACTION Tetracyclines Allergy PT UNSURE Verified 12/05/24 22:31 OF REACTION trazodone Allergy PT UNSURE Verified 12/05/24 22:31 OF REACTION Surgical History Presence of aortocoronary bypass graft History of cataract surgery History of lysis of adhesions Hx of hysterectomy Hx of total knee replacement Presence of aortocoronary bypass graft Social History Smoking Status: Never smoker ROS Constitutional Constitutional: Denies chills or fever(s) Eyes Eyes: Denies blurry vision ENT HEENT: Denies abnormal hearing, dysphagia, headache(s), hearing loss or loss taste/smell Cardiovascular Cardiovascular: Denies chest pain or syncope Respiratory/Chest Respiratory/Chest: Denies cough or shortness of breath at rest Gastrointestinal Gastrointestinal: Denies abdominal pain Genitourinary Genitourinary: Denies dysuria Musculoskeletal Musculoskeletal: Denies back pain or muscle weakness Integumentary Integumentary: Denies dry skin Neurologic Neurologic: Reports abnormal speech; Denies confusion, focal weakness, headache(s) or weakness Psychiatric Psychiatric: Denies anxiety Vital Signs Vital Signs Vital Signs: 12/05/24 22:19 12/05/24 23:19 12/06/24 00:04 Temperature 98.5 F Temperature Source Oral Pulse Rate 89 70 88 Respiratory Rate 24 H 14 22 H Blood Pressure 185/78 H 156/89 H 172/67 H Blood Pressure Mean 113 111 102 Pulse Ox 97 98 100 Oxygen Delivery Method Nasal Cannula Nasal Cannula Nasal Cannula Oxygen Flow Rate (L/min) 2 2 2 12/06/24 00:27 12/06/24 00:30 12/06/24 01:00 Temperature Temperature Source Pulse Rate 88 87 90 Respiratory Rate 21 H 12 16 Blood Pressure 159/96 H 159/96 H 169/77 H Blood Pressure Mean 117 117 107 Pulse Ox 95 99 96 Oxygen Delivery Method Nasal Cannula Nasal Cannula Nasal Cannula Oxygen Flow Rate (L/min) 2 2 2 12/06/24 01:30 Temperature Temperature Source Pulse Rate 89 Respiratory Rate 14 Blood Pressure 168/75 H Blood Pressure Mean 106 Pulse Ox 98 Oxygen Delivery Method Nasal Cannula Oxygen Flow Rate (L/min) 2 Weight Weight: 110 lb 0.171 oz Body Mass Index (BMI) 21.4 Physical Exam Const oriented x3 General Appearance: cooperative and well developed HEENT normocephalic and head/scalp atraumatic Eyes PERRL and EOMs intact bilaterally Neck no lymphadenopathy Lymph Lymphatic: no lymphadenopathy noted Resp normal respiratory effort, normal air movement and clear to auscultation bilaterally Cardio regular rate, regular rhythm, S1 normal heart sound and S2 normal heart sound GI normal to inspection, nondistended, normoactive bowel sounds Extremity normal capillary refill General Extremity: Negative for edema Skin General Skin Exam: no breakdown Neuro no sensory deficits noted Speech: speech abnormal Details: Positive for stuttering Motor Exam: strength 5/5 throughout Psych thought process normal and affect normal Results Lab / Micro Data 12/05/24 22:33 12/05/24 22:33 Labs: Laboratory Results - last 24 hr 12/05/24 22:33: WBC 5.6, RBC 3.55 L, Hgb 11.5 L, Hct 35.3 L, MCV 99.4 H, MCH 32.4 H, MCHC 32.6, RDW Std Deviation 49.0 H, RDW Coeff of [place] 13.4, Plt Count 217, MPV 9.0, Immature Gran % (Auto) 0.200, Neut % (Auto) 52.4, Lymph % (Auto) 37.3, [place] % (Auto) 8.3, Eos % (Auto) 1.1, Baso % (Auto) 0.7, Absolute Neuts (auto) 2.9, Absolute Lymphs (auto) 2.07, Nucleated RBC % 0, PT 13.0, INR 1.0, APTT 25.4, Sodium 139, Potassium 5.2 H, Chloride 103, Carbon Dioxide 27.0, Anion Gap 10, BUN 19, Creatinine 1.09, Estim Creat Clear Calc 25.63 L, Est GFR (MDRD) Non-Af 49 L, BUN/Creatinine Ratio 17.2, Glucose 99, Calcium 9.8, Magnesium 1.9 12/06/24 00:33: POC Glucose 84 12/06/24 01:09: Urine Color Yellow, Urine Clarity Clear, Urine pH 7.0, Ur Specific [place] 1.005, Urine Protein Negative, Urine Glucose (UA) Normal, Urine Ketones Negative, Urine Occult Blood Negative, Urine Nitrite Negative, Urine Bilirubin Negative, Urine Urobilinogen Normal, Ur Leukocyte Esterase Negative, Urine RBC 0-5 SEEN, Urine WBC 0-5 SEEN, Ur Squamous Epith Cells 0-5 SEEN, Urine Bacteria 0 SEEN, Hyaline Casts 0-5 SEEN, Urine Mucus 0 SEEN Imaging Radiology Impression Brain CT 12/05/24 22:40 IMPRESSION: No acute cerebrovascular abnormalities. If clinical symptoms persist, further evaluation with MRI may be considered as clinically warranted. No intra or extra-axial acute hemorrhage. Bilateral cerebral microvascular ischemic changes with brain involutional changes. Reading Location: [place] [id number] Head/Neck CTA 12/05/24 22:40 IMPRESSION: Atherosclerosis without high-grade stenosis. Reading Location: [place] [id number] Assessment & Plan Assessment/Plan (1) Dysarthria: (2) Stroke: QUALIFIERS: CVA mechanism: unspecified Qualified Code(s): I63.9 - Cerebral infarction, unspecified PLAN: Plan 1 possible CVA with dysarthria?admit patient to progressive care unit, initiate neurologic checks per routine protocol, per neurologist recommendation will obtain MRI in the morning, will continue aspirin. Patient not indicated for thrombolytic therapy at this time. Current NIH score is 2 2. DVT prophylaxis?low molecular weight heparin 3. CODE STATUS DNR Comfort Care arrest confirmed Charges/Coding Visit Charges Inpatient E&M: 86682 Init Hosp L2
--- OUTSIDE RECORDS SUMMARY | 2024-12-06 02:36 | XMS RPT_ITS | CCD ---
Author Organization [facility] Care Team Providers Care Dancing Master Name Role Phone Tavon-Babar, Vincenta Unavailable Unavailable [...] Christ Gardiner DO Primary Care Provider Jeff TOE FORMER STITCHDOWNS-CONDITIONING MACHINE OPERATOR, Apple Unavailable CHRIST GARDINER Primary Care Unavailroro e Jeff, MsLeigh Chiu Attending Unavailable Rashad Agosto, Dr. Christ Barron Primary Care [facility] Rashad Agosto, Dr. Christ Barron Attending [facility] Rashad Agosto, Dr. Christ Barron Primary Care [facility] JEFF, GILBERT CHIU Attending Unavailable Rashad Agosto, Dr. Christ Barron Primary Care [facility] Rashad Agosto, Dr. Christ Barron Primary Care [facility] Rashad Agosto, Dr. Christ Barron Attending [facility] Rashad Agosto, Dr. Christ Barron Primary Care [facility] Rashad Agosto, Dr. Christ Barron Attending [facility] Rashad Agosto, Dr. Christ Barron Attending U navailable Van Nostran, Dr. Christ Barron Referring U navailable Van Nostran, Dr. Christ Barron Primary Care U navailable JEFF, CONDITIONING MACHINE OPERATOR APPLE Attending Unavailable Van Nostran, Dr. Christ Barron Primary Care U navailable Van Nostran, Dr. Christ Barron Primary Care U navailable JEFF, CONDITIONING MACHINE OPERATOR APPLE Attending Unavailable Van Nostran DO, Christ [...] Attending Provider Dr. Juanita Jiang Attending Provider [phone] Dr. Neymar Cunningham Attending Provider Dr. Mu Grossman Other Provider Dr. Ajay Nieves Other Provider Dr. Dayron Workman Other Provider Unavailable Dr. Lucio Brown Other Provider Dr. Alen Burgess Other Provider Unavailab nacho Perez RN SURGICAL PCU, RN SURGICAL PCU-C Melania Other Provider Dr. Neymar Cunningham Referring [...] Alen Burgess Other Provider Unavailab nacho Perez RN SURGICAL PCU, RN SURGICAL PCU-C Melania Other Provider Terrence Addison DO, Dr. Humphrey Primary Care Provider Kam Ocampo MD Attending Provider Unavailable Dr. Jacobo Moya DO Emergency Provider [phone] Terrence Addison DO, Dr. Humphrey Primary Care [...] Addison DO, Dr. Humphrey Referring Provider [phone] [facility] , Dr. Centeno Emergency Department Physi [...] Deperro Sr., Kam Primary Care Unavailable Nilo, [place] Attending Unavailable Deperro Sr., Kam Primary Care [...] sources) Aspirin; Translations: [Aspirin TABS] Drug Allergy [facility] Work Phone: Benzodiazepines (8 sources) LORazepam; Translations: [Ativan TABS] Drug Allergy [facility] Work Phone: Cephalosporins (antibiotic) (4 sources) Cephalexin; Translations: [Keflex TABS] Drug Allergy [facility] Work Phone: Eszopiclone (4 sources) Eszopiclone; Translations: [Lunesta] Drug Allergy [facility] Work Phone: Fish (4 sources) fish, unspecified Food Allergy [facility] Work Phone: Lincomycin (4 sources) Lincomycin; Translations: [Lincocin SOLN] Drug Allergy [facility] Work Phone: Lincosamides (antibiotic) (4 sources) Clindamycin; Translations: [Clindamycin] Drug Allergy [facility] Work Phone: Macrolides (antibiotic) (4 sources) Clarithromycin; Translations: [Biaxin TABS] Drug Allergy [facility] Work Phone: Mold Extract (4 sources) Mold Extract Drug Allergy [facility] Work Phone: NSAIDs (4 sources) NSAIDs; Translations: [NSAIDs] Drug Allergy [facility] Work Phone: Penicillins (antibiotic) (4 sources) Penicillins; Translations: [Penicillins] Drug Allergy [facility] Work Phone: Pollen (4 sources) bee pollen Substance Allergy [facility] Work Phone: rofecoxib (4 sources) rofecoxib; Translations: [Vioxx TABS] Drug Allergy [facility] Work Phone: Serotonin Reuptake Inhibitors (SSRIs) (4 sources) traZODone; Translations: [trazodone] Drug Allergy [facility] Work Phone: Tetracyclines (antibiotic) (4 sources) Tetracyclines; Translations: [Tetracyclines] Drug Allergy [facility] Work Phone: (20 sources) Aspirin; Translations: [Aspirin TABS] Drug Allergy 03-02-19 23 Unknown [facility] (20 sources) bee pollen allergy to substance [facility] Work Phone: (20 sources) Cephalexin; Translations: [Keflex TABS] Drug Allergy 02-16-19 10 Unknown, Hives [facility] Work Phone: (20 sources) Clarithromycin; Translations: [Biaxin TABS] Drug Allergy 03-02-19 23 Unknown [facility] Work Phone: (20 sources) Clindamycin; Translations: [Clindamycin] Drug Allergy 10-14-19 21 Unknown [facility] Work Phone: (20 sources) fish, unspecified allergy to substance [facility] Work Phone: (20 sources) Lincomycin; Translations: [Lincocin SOLN] Drug Allergy 05-26-19 10 Unknown, Nausea And Vomiting, Rash [facility] Work Phone: (20 sources) LORazepam; Translations: [Ativan TABS] Drug Allergy 03-02-19 23 Unknown [facility] Work Phone: (20 sources) NSAIDs; Translations: [NSAIDs] drug allergy [facility] Work Phone: (20 sources) Penicillins; Translations: [Penicillins] drug allergy 03-02-19 [facility] (20 sources) rofecoxib; Translations: [Vioxx TABS] Drug Allergy 03-02-19 Unknown [facility] Work Phone: (20 sources) Tetracyclines; Translations: [Tetracyclines] drug allergy 03-02-19 [facility] (1 source) drug allergy [facility] Work Phone: (1 source) drug allergy [facility] Work Phone: (20 sources) Erythromycin Derivatives; Translations: [Erythromycin Derivatives] drug allergy [facility] Work Phone: (1 source) allergy to substance [facility] Work Phone: (1 source) allergy to substance [facility] Work Phone: (1 source) drug allergy [facility] Work Phone: (1 source) drug allergy [facility] Work Phone: (1 source) drug allergy [facility] Work Phone: (1 source) allergy to substance [facility] Work Phone: (1 source) allergy to substance [facility] Work Phone: (1 source) drug allergy [facility] Work Phone: (20 sources) Eszopiclone; Translations: [Lunesta] Drug Allergy [facility] Work Phone: (20 sources) Mold Extract; Translations: [MOLD] Drug Allergy 03-02-19 Unknown [facility] Work Phone: (20 sources) Temazepam; Translations: [Restoril] Drug Allergy [facility] Work Phone: (20 sources) traZODone; Translations: [trazodone] Drug Allergy 03-02-19 Unknown [facility] Work Phone: (20 sources) Other; Translations: [OTHER] allergy to substance 03-02-19 Unknown [facility] Work Phone: (20 sources) Doxazosin; Translations: [Cardura] Drug Allergy 03-02-19 Unknown [facility] Work Phone: (7 sources) Bee pollen; Translations: [BEE POLLEN] Drug Allergy 03-02-19 Unknown [facility] Work Phone: (20 sources) Erythromycin; Translations: [ERYTHROMYCIN BASE] Drug Allergy 03-02-19 [facility] Work Phone: (20 sources) Eszopiclone; Translations: [ESZOPICLONE] Drug Allergy 03-02-19 [facility] Work Phone: (7 sources) Non-steroidal anti-inflammatory agent; Translations: [NSAIDS (NON-STEROIDAL ANTI-INFLAMMATORY DRUG)] Drug Allergy 03-02-19 Unknown [facility] Work Phone: (5 sources) Penicillins Drug Allergy 03-02-19 [facility] Work Phone: (6 sources) Salicylic Acid; Translations: [SALICYLATES] Drug Allergy 02-16-19 10 GI bleeding [facility] Work Phone: (20 sources) Temazepam; Translations: [TEMAZEPAM] Drug Allergy 03-02-19 Unknown [facility] Work Phone: (5 sources) Tetracycline (class of antibiotic) Drug Allergy 03-02-19 [facility] Work Phone: (2 sources) Aspirin; Translations: [ASPIRIN] Drug Allergy 03-02-19 [facility] (4 sources) Cephalexin; Translations: [CEPHALEXIN] Drug Allergy 03-02-19 [facility] (5 sources) Clarithromycin; Translations: [CLARITHROMYCIN] Drug Allergy 10-14-19 [facility] (5 sources) Doxazosin; Translations: [DOXAZOSIN] Drug Allergy 03-02-19 23 Unknown [facility] (4 sources) Lincomycin; Translations: [LINCOMYCIN] Drug Allergy 03-02-19 [facility] (5 sources) LORazepam; Translations: [LORAZEPAM] Drug Allergy 10-14-19 [facility] (5 sources) rofecoxib; Translations: [ROFECOXIB] Drug Allergy 02-16-19 10 Unknown [facility] (4 sources) Fish; Translations: [FISH CONTAINING PRODUCTS] Drug Intolerance 10-14-19 Anaphylaxis [facility] (1 source) Eszopiclone Drug Allergy 10-14-19 Unknown [facility] (1 source) Fish - dietary Propensity to adverse reactions 10-14-19 Anaphylaxis [facility] (1 source) Non-steroidal anti-inflammatory agent Drug Allergy 10-14-19 [facility] (1 source) Penicillins Drug Allergy 02-16-19 10 [facility] (1 source) Salicylic Acid Drug Allergy 02-16-19 10 GI bleeding, Unknown [facility] (1 source) Temazepam Allergy to substance 03-02-19 [facility] (1 source) Tetracycline (class of antibiotic) Drug Allergy 02-16-19 10 [facility] (19 sources) Fish derivative; Translations: [fish derived] Allergy to substance 10-31-19 NEEDS FOLLOW-UP, PT UNSURE OF REACTION [facility] (17 sources) Nonsteroidal Anti-inflammatory Compounds Allergy to substance 10-31-19 NEEDS FOLLOW-UP, PT UNSURE OF REACTION [facility] (17 sources) Penicillins Allergy to substance 10-31-19 NEEDS FOLLOW-UP, PT UNSURE OF REACTION [facility] (17 sources) Salicylic Acid Drug Allergy 10-31-19 NEEDS FOLLOW-UP, PT UNSURE OF REACTION [facility] (17 sources) Tetracyclines Allergy to substance 10-31-19 NEEDS FOLLOW-UP, PT UNSURE OF REACTION [facility] (17 sources) Fish Containing Products Allergy to substance 10-31-19 NEEDS FOLLOW-UP, PT UNSURE OF REACTION [facility] (7 sources) cultivated mushroom extract Drug Allergy 07-26-19 25 PT UNSURE OF REACTION, Food Allergy [facility] (2 sources) Clindamycin Drug Allergy 08-03-19 [facility] (2 sources) Erythromycin Drug Allergy 08-03-19 [facility] (2 sources) Eszopiclone Drug Allergy 08-03-19 [facility] (2 sources) Mushroom (edible) Drug allergy (disorder) 08-03-19 [facility] (2 sources) NSAIDs Drug allergy (disorder) 08-03-19 [facility] (2 sources) Penicillins Drug allergy (disorder) 08-03-19 [facility] (2 sources) Salicylic Acid Drug Allergy 08-03-19 [facility] (2 sources) Temazepam Drug Allergy 08-03-19 [facility] (2 sources) Tetracyclines Drug allergy (disorder) 08-03-19 [facility] (2 sources) Fish Containing Products Drug allergy (disorder) 08-03-19 [facility] Medications Current Medications Medication Drug Class(es) [...] Start: 10-30-2022 take 1 capsule by mo [facility] once daily Cetirizine (All Day Allergy (Cetirizine)) [...] D Start: 08-02-2024 [facility] Start: 07-28-2024 End: 08-05-2024 take [...] 14-Nov-2019 Active take 1 capsule by mo [facility] four times daily Dicyclomine HCl - 10 [...] Diuretic Start: 08-05-2024 take 2 tablets by [facility] in the morning Start: 07-28-2024 End: 08-05-2024 [...] . Start: 01-12-2017 take 2 tablets by [facility] once daily, then take 1 tablet by mouth once daily Furosemide 20 MG Oral Tablet Take 1 tablet daily Quantity: 30 Refills: 2 Ordered: 21-May-2021 Christ Gardiner DO Start : 12-Jan-2017 Active (take 2 potassium on days you are taking full strength 20 mg furosemide, take 1 on 10 mg days) Start: 01-12-2017 take 2 tablets by mo [facility] every other day, then take 1 tablet [...] Start: 10-07-2017 take 1 capsule by mo [facility] once daily Potassium Chloride ER 10 MEQ [...] week. TAKE 1 TABLET BY MOUTH EVERY FLGUGH-BEWDEHTBN-GKZQSI 0 09/01/2012 Active Start: 09-01-2012 take 1 [...] / sennosides, retirement 8.6 mg oral tablet (18 sources) Start: [...] 24 hours scheduled (Daily), First dose on [facility] 10/11/22 at 0900 Indication of Use: [...] Oral, 2 times daily, First dose on [facility] 10/11/22 at 0915 Start: 05-22-2022 take [...] Active Start: 10-22-2017 take 1 capsule by [facility] once daily Omeprazole 20 MG Oral Capsule [...] Start : 12-Jan-2017 Active polyethylene glycol 3350 68945 mg powder for oral solution (14 sources) [...] disease; Translations: [Chronic kidney disease, stage 3a ([facility])] Onset: 3 Complications of surgical procedures or [...] disease (20 sources) 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; Translations: [Old [...] Problem Clarice young Eladio; 2012-04-06; Moved to [facility] Jan 01 2013 4:07PM; Other gastrointestinal [...] and visceral atherosclerosis (20 sources) Atherosclerosis of [place] arteries of the extremities with intermittent claudication; [...] by Hallie Clarice Hendricks; 2012-04-06; Moved to [facility] Jan 01 2013 4:07PM; Spondylosis; intervertebral [...] / Z88.1(ICD-10) Onset: 8 Unclassified (1 source) 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, [address] Hematocrit (Bld) [Volume fraction] 33.0 % Low 37-47 [facility] Comment on above: Order Comment: 301.2 Performed By: #### L 100.0500, [id number] ####[facility] [address] [place], [address] Hemoglobin (Bld) [Mass/Vol] 10.7 g/dL Low 12.0-15.0 [facility] Comment on above: Order Comment: 301.2 Performed By: #### L 100.0500, [id number] ####[facility] [address] [place], [address] MCH (RBC) [Entitic mass] 32.6 pg High 27.0-32.0 [facility] Comment on above: Order Comment: 301.2 Performed By: #### L 100.0500, [id number] ####[facility] [address] [place], [address] MCHC (RBC) [Mass/Vol] 32.4 g/dL Normal 32-36 [facility] Comment on above: Order Comment: 301.2 Performed By: #### L 100.0500, [id number] ####[facility] [address] [place], [address] MCV (RBC) [Entitic vol] 100.6 fL High 81-99 [facility] Comment on above: Order Comment: 301.2 Performed By: #### L 100.0500, [id number] ####[facility] [address] [place], [address] Platelet mean volume (Bld) [Entitic vol] 9.2 fL Normal 6.2-12.0 [facility] Comment on above: Order Comment: 301.2 Performed By: #### L 100.0500, [id number] ####[facility] [address] [place], [address] Platelets (Bld) [#/Vol] 189 10*3/uL Normal 150-450 [facility] Comment on above: Order Comment: 301.2 Performed By: #### L 100.0500, [id number] ####[facility] [address] [place], [address] RBC (Bld) [#/Vol] 3.28 10*6/uL Low 4.2-5.4 [facility] Comment on above: Order Comment: 301.2 Performed By: #### L 100.0500, [id number] ####[facility] [address] [place], [address] RDW SD 50.5 fl High 35.1-43.9 [facility] Comment on above: Order Comment: 301.2 Performed By: #### L 100.0500, [id number] ####[facility] [address] [place], [address] WBC (Bld) [#/Vol] 4.5 10*3/uL Normal 4.4-11.0 [facility] Comment on above: Order Comment: 301.2 Performed By: #### L 100.0500, [id number] ####[facility] [address] [place], [address] Comprehensive Metabolic Prof [facility] 12-05-2024 Albumin [Mass/Vol] 2.9 g/dL Low 3.4-4.8 [facility] Comment on above: Order Comment: 301.2 Performed By: #### L 100.0500, [id number] ####[facility] [address] [place], [address] Albumin/Globulin [Mass ratio] 0.9 {ratio} Normal 0.9-2.4 [facility] Comment on above: Order Comment: 301.2 Performed By: #### L 100.0500, [id number] ####[facility] [address] [place], [address] ALK PHOS 107 U/L High 35-104 [facility] Comment on above: Order Comment: 301.2 Performed By: #### L 100.0500, [id number] ####[facility] [address] [place], [address] ALT [Catalytic activity/Vol] 13 U/L Normal <=34 [facility] Comment on above: Order Comment: 301.2 Performed By: #### L 100.0500, [id number] ####[facility] [address] [place], [address] AST [Catalytic activity/Vol] 23 U/L Normal <=31 [facility] Comment on above: Order Comment: 301.2 Performed By: #### L 100.0500, [id number] ####[facility] [address] [place], [address] Bilirubin [Mass/Vol] 0.26 mg/dL Normal 0.00-1.30 [facility] Comment on above: Order Comment: 301.2 Performed By: #### L 100.0500, [id number] ####[facility] [address] [place], [address] BUN/CRE 15.1 RATIO Normal 10-20 [facility] Comment on above: Order Comment: 301.2 Performed By: #### L 100.0500, [id number] ####[facility] [address] [place], [address] Calcium [Mass/Vol] 9.4 mg/dL Normal 7.6-11.0 [facility] Comment on above: Order Comment: 301.2 Performed By: #### L 100.0500, [id number] ####[facility] [address] [place], [address] Chloride [Moles/Vol] 105 mmol/L Normal 98-108 [facility] Comment on above: Order Comment: 301.2 Performed By: #### L 100.0500, [id number] ####[facility] [address] [place], [address] CO2 [Moles/Vol] 30.0 mmol/L Normal 21.0-32.0 [facility] Comment on above: Order Comment: 301.2 Performed By: #### L 100.0500, [id number] ####[facility] [address] [place], [address] Creatinine [Mass/Vol] 0.83 mg/dL Normal 0.70-1.20 [facility] Comment on above: Order Comment: 301.2 Performed By: #### L 100.0500, [id number] ####[facility] [address] [place], [address] GAP 8 Normal 5-15 [facility] Comment on above: Order Comment: 301.2 Performed By: #### L 100.0500, [id number] ####[facility] [address] [place], [address] GFR/1.73 sq M.predicted among non-blacks MDRD (S/P/Bld) [Vol rate/Area] 68 mL/min/{1.73_m2} Normal >60 [facility] Comment on above: Order Comment: 301.2 Result Comment: mL/m in/1.73m2 CKD-EPI Creatinine Equation (2020) Performed By: #### L 100.0500, [id number] ####[facility] [address] [place], [address] Globulin (S) [Mass/Vol] 3.2 g/dL Normal 2.2-4.2 [facility] Comment on above: Order Comment: 301.2 Performed By: #### L 100.0500, [id number] ####[facility] [address] [place], [address] Glucose [Mass/Vol] 78 mg/dL Normal 70-99 [facility] Comment on above: Order Comment: 301.2 Performed By: #### L 100.0500, [id number] ####[facility] [address] [place], [address] Potassium [Moles/Vol] 3.9 mmol/L Normal 3.3-5.1 [facility] Comment on above: Order Comment: 301.2 Performed By: #### L 100.0500, [id number] ####[facility] [address] [place], [address] Sodium [Moles/Vol] 143 mmol/L Normal 133-145 [facility] Comment on above: Order Comment: 301.2 Performed By: #### L 100.0500, [id number] ####[facility] [address] [place], [address] T PROT 6.1 g/dL Normal 5.9-8.4 [facility] Comment on above: Order Comment: 301.2 Performed By: #### L 100.0500, [id number] ####[facility] [address] [place], [address] Urea nitrogen [Mass/Vol] 13 mg/dL Normal 4-19 [facility] Comment on above: Order Comment: 301.2 Performed By: #### L 100.0500, [id number] ####[facility] [address] [place], [address] Anion gap in Serum or Plasma Ordered By: Kam Ocampo on 10-25-2024 Anion gap [Moles/Vol] 9 mmol/L 5-15 [facility] BUN/creatinine ratioOrdered By: Kam Ocampo on 10-25-2024 Urea nitrogen/Creatinine [Mass ratio] 23.0 mg/mg High 10-20 [facility] Bilirubin, totalOrdered By: Kam Ocampo on 10-25-2024 Bilirubin [Mass/Vol] 0.24 mg/dL 0.00-1.30 [facility] CBC-Complete Blood Cnt No Di ffon 10-25-2024 Erythrocyte distribution width (RBC) [Ratio] 14.1 % Normal 11.6-14.6 [facility] Comment on above: Order Comment: 301.2 Performed By: #### L 500.4050, L100.0500 ####[facility] [address] [place], [address] Hematocrit (Bld) [Volume fraction] 31.0 % Low 37-47 [facility] Comment on above: Order Comment: 301.2 Performed By: #### L 500.4050, L100.0500 ####[facility] [address] [place], [address] Hemoglobin (Bld) [Mass/Vol] 10.2 g/dL Low 12.0-15.0 [facility] Comment on above: Order Comment: 301.2 Performed By: #### L 500.4050, L100.0500 ####[facility] [address] [place], [address] MCH (RBC) [Entitic mass] 33.7 pg High 27.0-32.0 [facility] Comment on above: Order Comment: 301.2 Performed By: #### L 500.4050, L100.0500 ####[facility] [address] [place], [address] MCHC (RBC) [Mass/Vol] 32.9 g/dL Normal 32-36 [facility] Comment on above: Order Comment: 301.2 Performed By: #### L 500.4050, L100.0500 ####[facility] [address] [place], [address] MCV (RBC) [Entitic vol] 102.3 fL High 81-99 [facility] Comment on above: Order Comment: 301.2 Performed By: #### L 500.4050, L100.0500 ####[facility] [address] [place], [address] Platelet mean volume (Bld) [Entitic vol] 9.5 fL Normal 6.2-12.0 [facility] Comment on above: Order Comment: 301.2 Performed By: #### L 500.4050, L100.0500 ####[facility] [address] [place], [address] Platelets (Bld) [#/Vol] 212 10*3/uL Normal 150-450 [facility] Comment on above: Order Comment: 301.2 Performed By: #### L 500.4050, L100.0500 ####[facility] [address] [place], [address] RBC (Bld) [#/Vol] 3.03 10*6/uL Low 4.2-5.4 [facility] Comment on above: Order Comment: 301.2 Performed By: #### L 500.4050, L100.0500 ####[facility] [address] [place], [address] RDW SD 52.8 fl High 35.1-43.9 [facility] Comment on above: Order Comment: 301.2 Performed By: #### L 500.4050, L100.0500 ####[facility] [address] [place], [address] WBC (Bld) [#/Vol] 4.9 10*3/uL Normal 4.4-11.0 [facility] Comment on above: Order Comment: 301.2 Performed By: #### L 500.4050, L100.0500 ####[facility] [address] [place], [address] Carbon dioxide, total [Moles /volume] in Central venous bloodOrdered By: Kam Ocampo on 10-25-2024 CO2 [Moles/Vol] 28.4 mmol/L 21.0-32.0 [facility] Chloride assayOrdered By: Dugan on 10-25-2024 Chloride [Moles/Vol] 107 mmol/L 98-108 [facility] Comprehensive Metabolic Prof ilon 10-25-2024 Albumin [Mass/Vol] 3.0 g/dL Low 3.4-4.8 [facility] Comment on above: Order Comment: 301.2 Performed By: #### L 500.4050, L100.0500 ####[facility] [address] [place], [address] Albumin/Globulin [Mass ratio] 1.1 {ratio} Normal 0.9-2.4 [facility] Comment on above: Order Comment: 301.2 Performed By: #### L 500.4050, L100.0500 ####[facility] [address] [place], [address] ALK PHOS 86 U/L Normal 35-104 [facility] Comment on above: Order Comment: 301.2 Performed By: #### L 500.4050, L100.0500 ####[facility] [address] [place], [address] ALT [Catalytic activity/Vol] 11 U/L Normal <=34 [facility] Comment on above: Order Comment: 301.2 Performed By: #### L 500.4050, L100.0500 ####[facility] [address] [place], [address] AST [Catalytic activity/Vol] 19 U/L Normal <=31 [facility] Comment on above: Order Comment: 301.2 Performed By: #### L 500.4050, L100.0500 ####[facility] [address] [place], [address] Bilirubin [Mass/Vol] 0.24 mg/dL Normal 0.00-1.30 [facility] Comment on above: Order Comment: 301.2 Performed By: #### L 500.4050, L100.0500 ####[facility] [address] [place], [address] BUN/CRE 23.0 RATIO High 10-20 [facility] Comment on above: Order Comment: 301.2 Performed By: #### L 500.4050, L100.0500 ####[facility] [address] [place], [address] Calcium [Mass/Vol] 9.7 mg/dL Normal 7.6-11.0 [facility] Comment on above: Order Comment: 301.2 Performed By: #### L 500.4050, L100.0500 ####[facility] [address] [place], [address] Chloride [Moles/Vol] 107 mmol/L Normal 98-108 [facility] Comment on above: Order Comment: 301.2 Performed By: #### L 500.4050, L100.0500 ####[facility] [address] [place], [address] CO2 [Moles/Vol] 28.4 mmol/L Normal 21.0-32.0 [facility] Comment on above: Order Comment: 301.2 Performed By: #### L 500.4050, L100.0500 ####[facility] [address] [place], [address] Creatinine [Mass/Vol] 0.86 mg/dL Normal 0.70-1.20 [facility] Comment on above: Order Comment: 301.2 Performed By: #### L 500.4050, L100.0500 ####[facility] [address] [place], [address] GAP 9 Normal 5-15 [facility] Comment on above: Order Comment: 301.2 Performed By: #### L 500.4050, L100.0500 ####[facility] [address] [place], [address] GFR/1.73 sq M.predicted among non-blacks MDRD (S/P/Bld) [Vol rate/Area] 65 mL/min/{1.73_m2} Normal >60 [facility] Comment on above: Order Comment: 301.2 Result Comment: mL/m in/1.73m2 CKD-EPI Creatinine Equation (2020) Performed By: #### L 500.4050, L100.0500 ####[facility] [address] [place], [address] Globulin (S) [Mass/Vol] 2.7 g/dL Normal 2.2-4.2 [facility] Comment on above: Order Comment: 301.2 Performed By: #### L 500.4050, L100.0500 ####[facility] [address] [place], [address] Glucose [Mass/Vol] 82 mg/dL Normal 70-99 [facility] Comment on above: Order Comment: 301.2 Performed By: #### L 500.4050, L100.0500 ####[facility] [address] [place], [address] Potassium [Moles/Vol] 4.2 mmol/L Normal 3.3-5.1 [facility] Comment on above: Order Comment: 301.2 Performed By: #### L 500.4050, L100.0500 ####[facility] [address] [place], [address] Sodium [Moles/Vol] 144 mmol/L Normal 133-145 [facility] Comment on above: Order Comment: 301.2 Performed By: #### L 500.4050, L100.0500 ####[facility] [address] [place], [address] T PROT 5.7 g/dL Low 5.9-8.4 [facility] Comment on above: Order Comment: 301.2 Performed By: #### L 500.4050, L100.0500 ####[facility] [address] [place], [address] Urea nitrogen [Mass/Vol] 20 mg/dL High 4-19 [facility] Comment on above: Order Comment: 301.2 Performed By: #### L 500.4050, L100.0500 ####[facility] [address] [place], [address] Erythrocyte distribution wid th ratioOrdered By: Kam Ocampo on 10-25-2024 Erythrocyte distribution width (RBC) [Ratio] 14.1 % 11.6-14.6 [facility] Erythrocyte distribution wid th standard deviationOrdered By: Kam Ocampo on 10-25-2024 Erythrocyte distribution width (RBC) [Ratio] 52.8 fl High 35.1-43.9 [facility] Glomerular filtration rate ( GFR) estimation/1.73 sq m using serum, plasma, or whole bOrdered By: Kam Ocampo on 10-25-2024 GFR/1.73 sq M.predicted among non-blacks MDRD (S/P/Bld) [Vol rate/Area] 65 mL/min/{1.73_m2} >60 [facility] Comment on above: mL/min/1.73m2 CKD-EP I Creatinine Equation (2020) Hematocrit Auto (Bld) [Volum e fraction]Ordered By: Kam Ocampo on 10-25-2024 Hematocrit (Bld) [Volume fraction] 31.0 % Low 37-47 [facility] Hemoglobin measurementOrdere d By: Kam Ocampo on 10-25-2024 Hemoglobin (Bld) [Mass/Vol] 10.2 g/dL Low 12.0-15.0 [facility] Laboratory - Chemistry and C hemistry - challengeOrdered By: Kam Ocampo on 10-25-2024 AST [Catalytic activity/Vol] 19 U/L <32 [facility] MCV (mean corpuscular volume ) determinationOrdered By: Kam Ocampo on 10-25-2024 MCV (RBC) [Entitic vol] 102.3 fL High 81-99 [facility] Mean corpuscular hemoglobin (MCH) determinationOrdered By: Kam Ocampo on 10-25-2024 MCH (RBC) [Entitic mass] 33.7 pg High 27.0-32.0 [facility] Mean corpuscular hemoglobin concentration (MCHC) determinationOrdered By: Kam Ocampo on 10-25-2024 MCHC (RBC) [Mass/Vol] 32.9 g/dL 32-36 [facility] Mean platelet volume determi nationOrdered By: Kam Ocampo on 10-25-2024 Platelet mean volume (Bld) [Entitic vol] 9.5 fL 6.2-12.0 [facility] Platelet countOrdered By: Dugan on 10-25-2024 Platelets (Bld) [#/Vol] 212 10*3/uL 150-450 [facility] Potassium measurement (mass/ volume)Ordered By: Kam Ocampo on 10-25-2024 Potassium (Unsp spec) [Mass/Vol] 4.2 mmol/L 3.3-5.1 [facility] RBC Auto (Bld) [#/Vol]Ordere d By: Kam Ocampo on 10-25-2024 RBC (Bld) [#/Vol] 3.03 10*6/uL Low 4.2-5.4 [facility] Serum creatinine measurement (mass/volume)Ordered By: Kam Ocampo on 10-25-2024 Creatinine [Mass/Vol] 0.86 mg/dL 0.70-1.20 [facility] Serum globulin measurementOr dered By: Kam Ocampo on 10-25-2024 Globulin (S) [Mass/Vol] 2.7 g/dL 2.2-4.2 [facility] Serum glucose measurement (m ass/volume)Ordered By: Kam Ocampo on 10-25-2024 Glucose [Mass/Vol] 82 mg/dL 70-99 [facility] Serum or plasma alanine browne otransferase (ALT) measurementOrdered By: Kam Ocampo on 10-25-2024 ALT [Catalytic activity/Vol] 11 U/L <35 [facility] Serum or plasma albumin светлана urement (mass/volume)Ordered By: Kam Ocampo on 10-25-2024 Albumin [Mass/Vol] 3.0 g/dL Low 3.4-4.8 [facility] Serum or plasma albumin/glob ulin mass ratioOrdered By: Kam Ocampo on 10-25-2024 Albumin/Globulin [Mass ratio] 1.1 {ratio} 0.9-2.4 [facility] Serum or plasma alkaline noy sphatase measurementOrdered By: Kam Ocampo on 10-25-2024 ALP [Catalytic activity/Vol] 86 U/L 35-104 [facility] Serum or plasma calcium светлана urement (mass/volume)Ordered By: Kam Ocampo on 10-25-2024 Calcium [Mass/Vol] 9.7 mg/dL 7.6-11.0 [facility] Serum or plasma urea nitroge n measurement (mass/volume)Ordered By: Kam Ocampo on 10-25-2024 Urea nitrogen [Mass/Vol] 20 mg/dL High 4-19 [facility] Sodium levelOrdered By: Kam Ocampo on 10-25-2024 Sodium [Moles/Vol] 144 mmol/L 133-145 [facility] Total proteinOrdered By: Aline Ocampo on 10-25-2024 Protein [Mass/Vol] 5.7 g/dL Low 5.9-8.4 [facility] White blood cell (WBC) count Ordered By: Kam Ocampo on 10-25-2024 WBC (Bld) [#/Vol] 4.9 10*3/uL 4.4-11.0 [facility] Anion gap in Serum or Plasma Ordered By: Kam Ocampo on 09-13-2024 Anion gap [Moles/Vol] 10 mmol/L 5-15 [facility] BUN/creatinine ratioOrdered By: Kam Ocampo on 09-13-2024 Urea nitrogen/Creatinine [Mass ratio] 14.8 mg/mg 10- [facility] Basic Metabolic Profile (BMP )on 09-13-2024 BUN/CRE 14.8 RATIO Normal - [facility] Comment on above: Order Comment: 301.2 Performed By: #### L 500.2500, L100.0500 ####[facility] [address] [place], [address] Calcium [Mass/Vol] 9.7 mg/dL Normal 7.6-11.0 [facility] Comment on above: Order Comment: 301.2 Performed By: #### L 500.2500, L100.0500 ####[facility] [address] [place], [address] Chloride [Moles/Vol] 102 mmol/L Normal 98-108 [facility] Comment on above: Order Comment: 301.2 Performed By: #### L 500.2500, L100.0500 ####[facility] [address] [place], [address] CO2 [Moles/Vol] 26.8 mmol/L Normal 21.0-32.0 [facility] Comment on above: Order Comment: 301.2 Performed By: #### L 500.2500, L100.0500 ####[facility] [address] [place], [address] Creatinine [Mass/Vol] 0.86 mg/dL Normal 0.70-1.20 [facility] Comment on above: Order Comment: 301.2 Performed By: #### L 500.2500, L100.0500 ####[facility] [address] [place], [address] GAP 10 Normal 5-15 [facility] Comment on above: Order Comment: 301.2 Performed By: #### L 500.2500, L100.0500 ####[facility] [address] [place], [address] GFR/1.73 sq M.predicted among non-blacks MDRD (S/P/Bld) [Vol rate/Area] 65 mL/min/{1.73_m2} Normal >60 [facility] Comment on above: Order Comment: 301.2 Result Comment: mL/m in/1.73m2 CKD-EPI Creatinine Equation (2020) Performed By: #### L 500.2500, L100.0500 ####[facility] [address] [place], [address] Glucose [Mass/Vol] 88 mg/dL Normal 70-99 [facility] Comment on above: Order Comment: 301.2 Performed By: #### L 500.2500, L100.0500 ####[facility] [address] [place], [address] Potassium [Moles/Vol] 4.3 mmol/L Normal 3.3-5.1 [facility] Comment on above: Order Comment: 301.2 Performed By: #### L 500.2500, L100.0500 ####[facility] [address] [place], [address] Sodium [Moles/Vol] 139 mmol/L Normal 133-145 [facility] Comment on above: Order Comment: 301.2 Performed By: #### L 500.2500, L100.0500 ####[facility] [address] [place], [address] Urea nitrogen [Mass/Vol] 13 mg/dL Normal 4-19 [facility] Comment on above: Order Comment: 301.2 Performed By: #### L 500.2500, L100.0500 ####[facility] [address] [place], [address] CBC-Complete Blood Cnt No Di ffon 09-13-2024 Erythrocyte distribution width (RBC) [Ratio] 14.9 % High 11.6-14.6 [facility] Comment on above: Order Comment: 301.2 Performed By: #### L 500.2500, L100.0500 ####[facility] [address] [place], [address] Hematocrit (Bld) [Volume fraction] 35.2 % Low 37-47 [facility] Comment on above: Order Comment: 301.2 Performed By: #### L 500.2500, L100.0500 ####[facility] [address] [place], [address] Hemoglobin (Bld) [Mass/Vol] 11.4 g/dL Low 12.0-15.0 [facility] Comment on above: Order Comment: 301.2 Performed By: #### L 500.2500, L100.0500 ####[facility] [address] [place], [address] MCH (RBC) [Entitic mass] 33.2 pg High 27.0-32.0 [facility] Comment on above: Order Comment: 301.2 Performed By: #### L 500.2500, L100.0500 ####[facility] [address] [place], [address] MCHC (RBC) [Mass/Vol] 32.4 g/dL Normal 32-36 [facility] Comment on above: Order Comment: 301.2 Performed By: #### L 500.2500, L100.0500 ####[facility] [address] [place], [address] MCV (RBC) [Entitic vol] 102.6 fL High 81-99 [facility] Comment on above: Order Comment: 301.2 Performed By: #### L 500.2500, L100.0500 ####[facility] [address] [place], [address] Platelet mean volume (Bld) [Entitic vol] 9.2 fL Normal 6.2-12.0 [facility] Comment on above: Order Comment: 301.2 Performed By: #### L 500.2500, L100.0500 ####[facility] [address] [place], [address] Platelets (Bld) [#/Vol] 213 10*3/uL Normal 150-450 [facility] Comment on above: Order Comment: 301.2 Performed By: #### L 500.2500, L100.0500 ####[facility] [address] [place], [address] RBC (Bld) [#/Vol] 3.43 10*6/uL Low 4.2-5.4 [facility] Comment on above: Order Comment: 301.2 Performed By: #### L 500.2500, L100.0500 ####[facility] [address] [place], [address] RDW SD 56.9 fl High 35.1-43.9 [facility] Comment on above: Order Comment: 301.2 Performed By: #### L 500.2500, L100.0500 ####[facility] [address] [place], [address] WBC (Bld) [#/Vol] 5.9 10*3/uL Normal 4.4-11.0 [facility] Comment on above: Order Comment: 301.2 Performed By: #### L 500.2500, L100.0500 ####[facility] [address] [place], [address] Carbon dioxide, total [Moles /volume] in Central venous bloodOrdered By: Kam Ocampo on 09-13-2024 CO2 [Moles/Vol] 26.8 mmol/L 21.0-32.0 [facility] Chloride assayOrdered By: Dugan on 09-13-2024 Chloride [Moles/Vol] 102 mmol/L 98-108 [facility] Erythrocyte distribution wid th ratioOrdered By: Kam Ocampo on 09-13-2024 Erythrocyte distribution width (RBC) [Ratio] 14.9 % High 11.6-14.6 [facility] Erythrocyte distribution wid th standard deviationOrdered By: Kam Ocampo on 09-13-2024 Erythrocyte distribution width (RBC) [Ratio] 56.9 fl High 35.1-43.9 [facility] Glomerular filtration rate ( GFR) estimation/1.73 sq m using serum, plasma, or whole bOrdered By: Kam Ocampo on 09-13-2024 GFR/1.73 sq M.predicted among non-blacks MDRD (S/P/Bld) [Vol rate/Area] 65 mL/min/{1.73_m2} >60 [facility] Comment on above: mL/min/1.73m2 CKD-EP I Creatinine Equation (2020) Hematocrit Auto (Bld) [Volum e fraction]Ordered By: Kam Ocampo on 09-13-2024 Hematocrit (Bld) [Volume fraction] 35.2 % Low 37-47 [facility] Hemoglobin measurementOrdere d By: Kam Ocampo on 09-13-2024 Hemoglobin (Bld) [Mass/Vol] 11.4 g/dL Low 12.0-15.0 [facility] MCV (mean corpuscular volume ) determinationOrdered By: Kam Ocampo on 09-13-2024 MCV (RBC) [Entitic vol] 102.6 fL High 81-99 [facility] Mean corpuscular hemoglobin (MCH) determinationOrdered By: Kam Ocampo on 09-13-2024 MCH (RBC) [Entitic mass] 33.2 pg High 27.0-32.0 [facility] Mean corpuscular hemoglobin concentration (MCHC) determinationOrdered By: Kam Ocampo on 09-13-2024 MCHC (RBC) [Mass/Vol] 32.4 g/dL 32-36 [facility] Mean platelet volume determi nationOrdered By: Kam Ocampo on 09-13-2024 Platelet mean volume (Bld) [Entitic vol] 9.2 fL 6.2-12.0 [facility] Platelet countOrdered By: Dugan on 09-13-2024 Platelets (Bld) [#/Vol] 213 10*3/uL 150-450 [facility] Potassium measurement (mass/ volume)Ordered By: Kam Ocampo on 09-13-2024 Potassium (Unsp spec) [Mass/Vol] 4.3 mmol/L 3.3-5.1 [facility] RBC Auto (Bld) [#/Vol]Ordere d By: Kam Ocampo on 09-13-2024 RBC (Bld) [#/Vol] 3.43 10*6/uL Low 4.2-5.4 [facility] Serum creatinine measurement (mass/volume)Ordered By: Kam Ocampo on 09-13-2024 Creatinine [Mass/Vol] 0.86 mg/dL 0.70-1.20 [facility] Serum glucose measurement (m ass/volume)Ordered By: Kam Ocampo on 09-13-2024 Glucose [Mass/Vol] 88 mg/dL 70-99 [facility] Serum or plasma calcium светлана urement (mass/volume)Ordered By: Kam Ocampo on 09-13-2024 Calcium [Mass/Vol] 9.7 mg/dL 7.6-11.0 [facility] Serum or plasma urea nitroge n measurement (mass/volume)Ordered By: Kam Ocampo on 09-13-2024 Urea nitrogen [Mass/Vol] 13 mg/dL 4-19 [facility] Sodium levelOrdered By: Kam Ocampo on 09-13-2024 Sodium [Moles/Vol] 139 mmol/L 133-145 [facility] White blood cell (WBC) count Ordered By: Kam Ocampo on 09-13-2024 WBC (Bld) [#/Vol] 5.9 10*3/uL 4.4-11.0 [facility] HIP, UNI W/ Pelvis 2-3 Views on 08-17-2024 HIP, UNI W/ Pelvis 2-3 Views Normal [facility] Knee 3 Viewson 08-17-2024 Knee 3 Views Normal [facility] Orthopedic Visit Reporton Orthopedic Visit Report Normal [facility] Activated partial thrombopla stin time (aPTT) in platelet poor plasma by coagulation aOrdered By: Jw Evans on 08-04-2024 aPTT Coag (PPP) [Time] 29.9 s 24.1-36.2 [facility] Anion gap in Serum or Plasma Ordered By: Hayden Diaz on 08-04-2024 Anion gap [Moles/Vol] 12 mmol/L - [facility] BUN/creatinine ratioOrdered By: Hayden Diaz on 08-04-2024 Urea nitrogen/Creatinine [Mass ratio] 15.8 mg/mg 10- [facility] Basic Metabolic Profile (BMP )on 08-04-2024 BUN/CRE 15.8 RATIO Normal - [facility] Comment on above: Performed By: #### L 100.0500, L500.2500 ####[facility] [address] [place], [address] Calcium [Mass/Vol] 9.4 mg/dL Normal 7.6-11.0 [facility] Comment on above: Performed By: #### L 100.0500, L500.2500 ####[facility] [address] [place], [address] Chloride [Moles/Vol] 102 mmol/L Normal 98-108 [facility] Comment on above: Performed By: #### L 100.0500, L500.2500 ####[facility] [address] [place], [address] CO2 [Moles/Vol] 29.5 mmol/L Normal 21.0-32.0 [facility] Comment on above: Performed By: #### L 100.0500, L500.2500 ####[facility] [address] [place], [address] ECRCL 34.91 ml/min Low 50-250 [facility] Comment on above: Performed By: #### L 100.0500, L500.2500 ####[facility] [address] [place], [address] GAP 12 Normal 5-15 [facility] Comment on above: Performed By: #### L 100.0500, L500.2500 ####[facility] [address] [place], [address] GFR/1.73 sq M.predicted among non-blacks MDRD (S/P/Bld) [Vol rate/Area] 78 mL/min/{1.73_m2} Normal >60 [facility] Comment on above: Result Comment: mL/m in/1.73m2 CKD-EPI Creatinine Equation (2020) Performed By: #### L 100.0500, L500.2500 ####[facility] [address] [place], [address] Potassium [Moles/Vol] 3.4 mmol/L Normal 3.3-5.1 [facility] Comment on above: Performed By: #### L 100.0500, L500.2500 ####[facility] [address] [place], [address] Sodium [Moles/Vol] 143 mmol/L Normal 133-145 [facility] Comment on above: Performed By: #### L 100.0500, L500.2500 ####[facility] [address] [place], [address] Creatinine [Mass/Vol] 0.74 mg/dL Normal 0.70-1.20 [facility] Comment on above: Performed By: #### L 100.0500, L500.2500 ####[facility] [address] [place], [address] Glucose [Mass/Vol] 98 mg/dL Normal 70-99 [facility] Comment on above: Performed By: #### L 100.0500, L500.2500 ####[facility] [address] [place], [address] Urea nitrogen [Mass/Vol] 12 mg/dL Normal 4-19 [facility] Comment on above: Performed By: #### L 100.0500, L500.2500 ####[facility] [address] [place], [address] CBC-Complete Blood Cnt No Di ffon 08-04-2024 Erythrocyte distribution width (RBC) [Ratio] 16.7 % High 11.6-14.6 [facility] Comment on above: Performed By: #### L 100.0500, L500.2500 ####[facility] [address] [place], [address] Hematocrit (Bld) [Volume fraction] 32.0 % Low 37-47 [facility] Comment on above: Performed By: #### L 100.0500, L500.2500 ####[facility] [address] [place], [address] Hemoglobin (Bld) [Mass/Vol] 11.0 g/dL Low 12.0-15.0 [facility] Comment on above: Performed By: #### L 100.0500, L500.2500 ####[facility] [address] [place], [address] MCH (RBC) [Entitic mass] 33.6 pg High 27.0-32.0 [facility] Comment on above: Performed By: #### L 100.0500, L500.2500 ####[facility] [address] [place], [address] MCHC (RBC) [Mass/Vol] 34.4 g/dL Normal 32-36 [facility] Comment on above: Performed By: #### L 100.0500, L500.2500 ####[facility] [address] [place], [address] MCV (RBC) [Entitic vol] 97.9 fL Normal 81-99 [facility] Comment on above: Performed By: #### L 100.0500, L500.2500 ####[facility] [address] [place], [address] Platelet mean volume (Bld) [Entitic vol] 8.7 fL Normal 6.2-12.0 [facility] Comment on above: Performed By: #### L 100.0500, L500.2500 ####[facility] [address] [place], [address] Platelets (Bld) [#/Vol] 286 10*3/uL Normal 150-450 [facility] Comment on above: Performed By: #### L 100.0500, L500.2500 ####[facility] [address] [place], [address] RBC (Bld) [#/Vol] 3.27 10*6/uL Low 4.2-5.4 [facility] Comment on above: Performed By: #### L 100.0500, L500.2500 ####[facility] [id number] [place], [address] RDW SD 50.4 fl High 35.1-43.9 [facility] Comment on above: Performed By: #### L 100.0500, L500.2500 ####[facility] [facility] [address] [place], [address] WBC (Bld) [#/Vol] 7.8 10*3/uL Normal 4.4-11.0 [facility] Comment on above: Performed By: #### L 100.0500, L500.2500 ####[facility] [address] [place], [address] Carbon dioxide, total [Moles /volume] in Central venous bloodOrdered By: Hayden Diaz on 08-04-2024 CO2 [Moles/Vol] 29.5 mmol/L 21.0-32.0 [facility] Chloride assayOrdered By: Elpidio Diaz on 08-04-2024 Chloride [Moles/Vol] 102 mmol/L 98-108 [facility] EGD Reporton 08-04-2024 EGD Report Normal [facility] Erythrocyte distribution wid th ratioOrdered By: Hayden Diaz on 08-04-2024 Erythrocyte distribution width (RBC) [Ratio] 16.7 % High 11.6-14.6 [facility] Erythrocyte distribution wid th standard deviationOrdered By: Hayden Diaz on 08-04-2024 Erythrocyte distribution width (RBC) [Ratio] 50.4 fl High 35.1-43.9 [facility] Glomerular filtration rate ( GFR) estimation/1.73 sq m using serum, plasma, or whole bOrdered By: Hayden Diaz on 08-04-2024 GFR/1.73 sq M.predicted among non-blacks MDRD (S/P/Bld) [Vol rate/Area] 78 mL/min/{1.73_m2} >60 [facility] Comment on above: mL/min/1.73m2 CKD-EP I Creatinine Equation (2020) Hematocrit Auto (Bld) [Volum e fraction]Ordered By: Hayden Diaz on 08-04-2024 Hematocrit (Bld) [Volume fraction] 32.0 % Low 37-47 [facility] Hemoglobin measurementOrdere d By: Hayden Diaz on 08-04-2024 Hemoglobin (Bld) [Mass/Vol] 11.0 g/dL Low 12.0-15.0 [facility] International normalized rat io (INR) calculationOrdered By: Jw Evans on 08-04-2024 INR Coag (Bld) [Relative time] 1.1 {INR} [facility] MCV (mean corpuscular volume ) determinationOrdered By: Hayden Diaz on 08-04-2024 MCV (RBC) [Entitic vol] 97.9 fL 81-99 [facility] MR/POSTOP.ANEon 08-04-2024 MR/POSTOP.ANE Normal [facility] MR/[id number] 08-04-2024 MR/POSTOPAN2 Normal [facility] Mean corpuscular hemoglobin (MCH) determinationOrdered By: Hayden Diaz on 08-04-2024 MCH (RBC) [Entitic mass] 33.6 pg High 27.0-32.0 [facility] Mean corpuscular hemoglobin concentration (MCHC) determinationOrdered By: Hayden Diaz on 08-04-2024 MCHC (RBC) [Mass/Vol] 34.4 g/dL 32-36 [facility] Mean platelet volume determi nationOrdered By: Hayden Diaz on 08-04-2024 Platelet mean volume (Bld) [Entitic vol] 8.7 fL 6.2-12.0 [facility] Partial Thromboplast Timeon 08-04-2024 aPTT Coag (Bld) [Time] 29.9 s Normal 24.1-36.2 [facility] Comment on above: Order Comment: Comme nts: Pre-operative Performed By: #### L 300.7280, L300.5770, L501.9520 ####[facility] [address] [place], [address] Platelet countOrdered By: Elpidio Diaz on 08-04-2024 Platelets (Bld) [#/Vol] 286 10*3/uL 150-450 [facility] Potassium measurement (mass/ volume)Ordered By: Hayden Diaz on 08-04-2024 Potassium (Unsp spec) [Mass/Vol] 3.4 mmol/L 3.3-5.1 [facility] Prothrombin Time w/INRon INR Coag (PPP) [Relative time] 1.1 {INR} Normal [facility] Comment on above: Order Comment: Comme nts: Pre-operative Performed By: #### L 300.4310, L300.3900, L501.9520 ####[facility] [address] [place], [address] PT Coag (PPP) [Time] 14.1 s Normal 11.7-14.9 [facility] Comment on above: Order Comment: Comme nts: Pre-operative Performed By: #### L 300.4310, L300.3900, L501.9520 ####[facility] [address] [place], [address] Prothrombin timeOrdered By: Jw Evans on 08-04-2024 PT Coag (PPP) [Time] 14.1 s 11.7-14.9 [facility] RBC Auto (Bld) [#/Vol]Ordere d By: Hayden Diaz on 08-04-2024 RBC (Bld) [#/Vol] 3.27 10*6/uL Low 4.2-5.4 [facility] Serum creatinine measurement (mass/volume)Ordered By: Hayden Diaz on 08-04-2024 Creatinine [Mass/Vol] 0.74 mg/dL 0.70-1.20 [facility] Serum glucose measurement (m ass/volume)Ordered By: Hayden Diaz on 08-04-2024 Glucose [Mass/Vol] 98 mg/dL 70-99 [facility] Serum or plasma calcium светлана urement (mass/volume)Ordered By: Hayden Diaz on 08-04-2024 Calcium [Mass/Vol] 9.4 mg/dL 7.6-11.0 [facility] Serum or plasma urea nitroge n measurement (mass/volume)Ordered By: Hayden Diaz on 08-04-2024 Urea nitrogen [Mass/Vol] 12 mg/dL 4-19 [facility] Sodium levelOrdered By: Juvenal Diaz on 08-04-2024 Sodium [Moles/Vol] 143 mmol/L 133-145 [facility] TSH DL <= 0.005 mIU/L QnOrde red By: Jw Evans on 08-04-2024 TSH Qn 1.990 uIU/mL 0.300-4.20 0 [facility] Thyroid Stim Hormone (TSH)on 08-04-2024 TSH 1.990 uIU/mL Normal 0.300-4.20 0 [facility] Comment on above: Order Comment: Matilda nts: Pre-operative Performed By: #### L 300.4310, L300.3900, L501.9520 ####[facility] [address] [place], [place], [address] White blood cell (WBC) count Ordered By: Hayden Diaz on 08-04-2024 WBC (Bld) [#/Vol] 7.8 10*3/uL 4.4-11.0 [facility] Absolute lymphocyte countOrd ered By: Janine Harrison on 08-03-2024 Lymphocytes Auto (Unsp spec) [#/Vol] 1.69 10*3/uL 0.83-4.51 [facility] Absolute neutrophil countOrd ered By: Janine Harrison on 08-03-2024 Neutrophils (Bld) [#/Vol] 4.9 10*3/uL 2.0-7.7 [facility] Automated lymphocyte count a s percentage of total leukocytesOrdered By: Janine Harrison on 08-03-2024 Lymphocytes/100 WBC Auto (Unsp spec) 23.1 % 19-41 [facility] Basic Metabolic Profile (BMP )on 08-03-2024 BUN/CRE 19.8 RATIO Normal 10-20 [facility] Comment on above: Performed By: #### L 300.3900, L100.0100, L500.2500 #### [facility] [address] [place], [address] Performed By: #### L 300.3900, L100.0100, L500.2500 ####[facility] [address] [place], [address] Calcium [Mass/Vol] 9.5 mg/dL Normal 7.6-11.0 [facility] Comment on above: Performed By: #### L 300.3900, L100.0100, L500.2500 #### [facility] [address] [place], [address] Performed By: #### L 300.3900, L100.0100, L500.2500 ####[facility] [address] [place], [address] Chloride [Moles/Vol] 99 mmol/L Normal 98-108 [facility] Comment on above: Performed By: #### L 300.3900, L100.0100, L500.2500 #### [facility] [address] [place], [address] Performed By: #### L 300.3900, L100.0100, L500.2500 ####[facility] [address] [place], [address] CO2 [Moles/Vol] 31.1 mmol/L Normal 21.0-32.0 [facility] Comment on above: Performed By: #### L 300.3900, L100.0100, L500.2500 #### [facility] [address] [place], [address] Performed By: #### L 300.3900, L100.0100, L500.2500 ####[facility] [address] [place], [address] Creatinine [Mass/Vol] 0.86 mg/dL Normal 0.70-1.20 [facility] Comment on above: Performed By: #### L 300.3900, L100.0100, L500.2500 #### [facility] [address] [place], [address] Performed By: #### L 300.3900, L100.0100, L500.2500 ####[facility] [address] [place], [address] ECRCL 1.09 ml/min Invalid Interpretation Code 50-250 [facility] Comment on above: Performed By: #### L 300.3900, L100.0100, L500.2500 #### [facility] [address] [place], [address] Performed By: #### L 300.3900, L100.0100, L500.2500 ####[facility] [address] [place], [address] GAP 11 Normal 5-15 [facility] Comment on above: Performed By: #### L 300.3900, L100.0100, L500.2500 #### [facility] [address] [place], [address] Performed By: #### L 300.3900, L100.0100, L500.2500 ####[facility] [address] [place], [address] GFR/1.73 sq M.predicted among non-blacks MDRD (S/P/Bld) [Vol rate/Area] 65 mL/min/{1.73_m2} Normal >60 [facility] Comment on above: Result Comment: mL/m in/1.73m2 CKD-EPI Creatinine Equation (2020) Performed By: #### L 300.3900, L100.0100, L500.2500 #### [facility] [address] [place], [address] Result Comment: mL/m in/1.73m2 CKD-EPI Creatinine Equation (2020) Performed By: #### L 300.3900, L100.0100, L500.2500 ####[facility] [address] [place], [address] Glucose [Mass/Vol] 94 mg/dL Normal 70-99 [facility] Comment on above: Performed By: #### L 300.3900, L100.0100, L500.2500 #### [facility] [address] [place], [address] Performed By: #### L 300.3900, L100.0100, L500.2500 ####[facility] [address] [place], [address] Potassium [Moles/Vol] 3.4 mmol/L Normal 3.3-5.1 [facility] Comment on above: Performed By: #### L 300.3900, L100.0100, L500.2500 #### [facility] [address] [place], [address] Performed By: #### L 300.3900, L100.0100, L500.2500 ####[facility] [address] [place], [address] Sodium [Moles/Vol] 140 mmol/L Normal 133-145 [facility] Comment on above: Performed By: #### L 300.3900, L100.0100, L500.2500 #### [facility] [address] [place], [address] Performed By: #### L 300.3900, L100.0100, L500.2500 ####[facility] [address] [place], [address] Urea nitrogen [Mass/Vol] 17 mg/dL Normal 4-19 [facility] Comment on above: Performed By: #### L 300.3900, L100.0100, L500.2500 #### [facility] [address] [place], [address] Performed By: #### L 300.3900, L100.0100, L500.2500 ####[facility] [address] [place], [address] Basophil percentageOrdered B y: Janine Harrison on 08-03-2024 Basophils/100 WBC (Bld) 0.5 % 0-1 [facility] Bedside Glucoseon 08-03-2024 FINGERSTICK GLU 106 mg/dL Normal 74-106 [facility] Comment on above: Result Comment: GIAN GEMENT OF PATIENT CARE PER NURSING PROTOCOL Performed By: #### L 501.080 #### [facility] [address] [place], [address] Result Comment: GIAN GEMENT OF PATIENT CARE PER NURSING PROTOCOL Performed By: #### L 501.080 ####[facility] [address] [place], [address] Brain/Head without Contrasto n 08-03-2024 Brain/Head without Contrast [facility] [address] [place] [address] Brain/Head without Contrast MR#: [id number] Acct: [id number] Name: KATHERINE JUDGE Wilber Rep #: [id number] : 1935 F 89 From: Spencer jaime MD PCP: Dr. Kam Ocampo SrLeigh, DO Status: ADM IN Study: Brain/Head without Contrast Date of Exam: 07/11 07/03 Exam# [id number] Ordering Dr: Hayden Diaz DO PROCEDURE: BRAIN/HEAD [...] ACUTE INTRACRANIAL HEMORRHAGE Chronic changes. Reading Location: [id number] CC: Dr. Hayden Diaz, ; Dr. Kam Ocampo Sr., Shaper Operator: Signed Normal [facility] Brain/Head without Contrast Normal [facility] CBC W/Diff, Automatedon 07-11 Absolute Lymph 1.69 X10 3/uL Normal 0.83-4.51 [facility] Comment on above: Performed By: #### L 300.3900, L100.0100, L500.2500 #### [facility] [address] [place], [address] Performed By: #### L 300.3900, L100.0100, L500.2500 ####[facility] [address] [place], [address] Absolute Neut 4.9 X10 3/uL Normal 2.0-7.7 [facility] Comment on above: Performed By: #### L 300.3900, L100.0100, L500.2500 #### [facility] [address] [place], [address] Performed By: #### L 300.3900, L100.0100, L500.2500 ####[facility] [address] [place], [address] Basophils/100 WBC (Bld) 0.5 % Normal 0-1 [facility] Comment on above: Performed By: #### L 300.3900, L100.0100, L500.2500 #### [facility] [address] [place], [address] Performed By: #### L 300.3900, L100.0100, L500.2500 ####[facility] [address] [place], [address] Eosinophils/100 WBC (Bld) 1.1 % Normal 0-5 [facility] Comment on above: Performed By: #### L 300.3900, L100.0100, L500.2500 #### [facility] [address] [place], [address] Performed By: #### L 300.3900, L100.0100, L500.2500 ####[facility] [address] [place], [address] Erythrocyte distribution width (RBC) [Ratio] 15.8 % High 11.6-14.6 [facility] Comment on above: Performed By: #### L 300.3900, L100.0100, L500.2500 #### [facility] [address] [place], [address] Performed By: #### L 300.3900, L100.0100, L500.2500 ####[facility] [address] [place], [address] Hematocrit (Bld) [Volume fraction] 27.9 % Low 37-47 [facility] Comment on above: Performed By: #### L 300.3900, L100.0100, L500.2500 #### [facility] [address] [place], [address] Performed By: #### L 300.3900, L100.0100, L500.2500 ####[facility] [address] [place], [address] IG% 0.700 Normal 0.0-0.9 [facility] Comment on above: Result Comment: IG% - Immature Granulocytes (promyelocytes, myelocytes and metamyelocytes) > 1% indicates that a LEFT SHIFT is Present. Performed By: #### L 300.3900, L100.0100, L500.2500 #### [facility] [address] [place], [address] Result Comment: IG% - Immature Granulocytes (promyelocytes, myelocytes andmetamyelocytes) > 1% indicates that a LEFT SHIFT is Present. Performed By: #### L 300.3900, L100.0100, L500.2500 ####[facility] [address] [place], [address] Lymphocytes/100 WBC (Bld) 23.1 % Normal 19-41 [facility] Comment on above: Performed By: #### L 300.3900, L100.0100, L500.2500 #### [facility] [address] [place], [address] Performed By: #### L 300.3900, L100.0100, L500.2500 ####[facility] [address] [place], [address] MCH (RBC) [Entitic mass] 33.0 pg High 27.0-32.0 [facility] Comment on above: Performed By: #### L 300.3900, L100.0100, L500.2500 #### [facility] [address] [place], [address] Performed By: #### L 300.3900, L100.0100, L500.2500 ####[facility] [address] [place], [address] MCHC (RBC) [Mass/Vol] 34.4 g/dL Normal 32-36 [facility] Comment on above: Performed By: #### L 300.3900, L100.0100, L500.2500 #### [facility] [address] [place], [address] Performed By: #### L 300.3900, L100.0100, L500.2500 ####[facility] [address] [place], [address] MCV (RBC) [Entitic vol] 95.9 fL Normal 81-99 [facility] Comment on above: Performed By: #### L 300.3900, L100.0100, L500.2500 #### [facility] [address] [place], [address] Performed By: #### L 300.3900, L100.0100, L500.2500 ####[facility] [address] [place], [address] Monocytes/100 WBC (Bld) 8.1 % Normal 0-10 [facility] Comment on above: Performed By: #### L 300.3900, L100.0100, L500.2500 #### [facility] [address] [place], [address] Performed By: #### L 300.3900, L100.0100, L500.2500 ####[facility] [address] [place], [address] Neutrophils/100 WBC (Bld) 66.5 % Normal 47-70 [facility] Comment on above: Performed By: #### L 300.3900, L100.0100, L500.2500 #### [facility] [address] [place], [address] Performed By: #### L 300.3900, L100.0100, L500.2500 ####[facility] [address] [place], [address] Nucleated RBC (Bld) [#/Vol] 0 10*3/uL Normal 0-5 [facility] Comment on above: Performed By: #### L 300.3900, L100.0100, L500.2500 #### [facility] [address] [place], [address] Performed By: #### L 300.3900, L100.0100, L500.2500 ####[facility] [address] [place], [address] Platelet mean volume (Bld) [Entitic vol] 8.9 fL Normal 6.2-12.0 [facility] Comment on above: Performed By: #### L 300.3900, L100.0100, L500.2500 #### [facility] [address] [place], [address] Performed By: #### L 300.3900, L100.0100, L500.2500 ####[facility] [address] [place], [address] Platelets (Bld) [#/Vol] 239 10*3/uL Normal 150-450 [facility] Comment on above: Performed By: #### L 300.3900, L100.0100, L500.2500 #### [facility] [address] [place], [address] Performed By: #### L 300.3900, L100.0100, L500.2500 ####[facility] [address] [place], [address] RBC (Bld) [#/Vol] 2.91 10*6/uL Low 4.2-5.4 [facility] Comment on above: Performed By: #### L 300.3900, L100.0100, L500.2500 #### [facility] [address] [place], [address] Performed By: #### L 300.3900, L100.0100, L500.2500 ####[facility] [address] [place], [address] RDW SD 48.7 fl High 35.1-43.9 [facility] Comment on above: Performed By: #### L 300.3900, L100.0100, L500.2500 #### [facility] [address] [place], [address] Performed By: #### L 300.3900, L100.0100, L500.2500 ####[facility] [address] [place], [address] WBC (Bld) [#/Vol] 7.3 10*3/uL Normal 4.4-11.0 [facility] Comment on above: Performed By: #### L 300.3900, L100.0100, L500.2500 #### [facility] [address] [place], [address] Performed By: #### L 300.3900, L100.0100, L500.2500 ####[facility] [address] [place], [address] CBC-Complete Blood Cnt No Di ffon 08-03-2024 Erythrocyte distribution width (RBC) [Ratio] 16.4 % High 11.6-14.6 [facility] Comment on above: Performed By: #### L 100.0500 #### [facility] [address] [place], [address] Performed By: #### L 100.0500 ####[facility] [address] [place], [address] Hematocrit (Bld) [Volume fraction] 32.2 % Low 37-47 [facility] Comment on above: Performed By: #### L 100.0500 #### [facility] [address] [place], [address] Performed By: #### L 100.0500 ####[facility] [address] [place], [address] Hemoglobin (Bld) [Mass/Vol] 11.0 g/dL Low 12.0-15.0 [facility] Comment on above: Performed By: #### L 100.0500 #### [facility] [address] [place], [address] Performed By: #### L 100.0500 ####[facility] [address] [place], [address] MCH (RBC) [Entitic mass] 32.9 pg High 27.0-32.0 [facility] Comment on above: Performed By: #### L 100.0500 #### [facility] [address] [place], [address] Performed By: #### L 100.0500 ####[facility] [address] [place], [address] MCHC (RBC) [Mass/Vol] 34.2 g/dL Normal 32-36 [facility] Comment on above: Performed By: #### L 100.0500 #### [facility] [address] [place], [address] Performed By: #### L 100.0500 ####[facility] [address] [place], [address] MCV (RBC) [Entitic vol] 96.4 fL Normal 81-99 [facility] Comment on above: Performed By: #### L 100.0500 #### [facility] [address] [place], [address] Performed By: #### L 100.0500 ####[facility] [address] [place], [address] Platelet mean volume (Bld) [Entitic vol] 9.0 fL Normal 6.2-12.0 [facility] Comment on above: Performed By: #### L 100.0500 #### [facility] [address] [place], [address] Performed By: #### L 100.0500 ####[facility] [address] [place], [address] Platelets (Bld) [#/Vol] 297 10*3/uL Normal 150-450 [facility] Comment on above: Performed By: #### L 100.0500 #### [facility] [address] [place], [address] Performed By: #### L 100.0500 ####[facility] [address] [place], [address] RBC (Bld) [#/Vol] 3.34 10*6/uL Low 4.2-5.4 [facility] Comment on above: Performed By: #### L 100.0500 #### [facility] [address] [place], [address] Performed By: #### L 100.0500 ####[facility] [address] [place], [address] RDW SD 49.8 fl High 35.1-43.9 [facility] Comment on above: Performed By: #### L 100.0500 #### [facility] [address] [place], [address] Performed By: #### L 100.0500 ####[facility] [address] [place], [address] WBC (Bld) [#/Vol] 8.9 10*3/uL Normal 4.4-11.0 [facility] Comment on above: Performed By: #### L 100.0500 #### [facility] [address] [place], [address] Performed By: #### L 100.0500 ####[facility] [address] [place], [address] Eosinophil percentageOrdered By: Janine Harrison on 08-03-2024 Eosinophils/100 WBC (Bld) 1.1 % 0-5 [facility] Gl[facility] deOrdered By: Hayden Diaz on 08-03-2024 Glucose [Mass/Vol] 106 mg/dL 74-106 [facility] Comment on above: MANAGEMENT OF PATIEN T CARE PER NURSING PROTOCOL HH, Hemoglobin AND Hematocri ton 08-03-2024 Hematocrit (Bld) [Volume fraction] 28.3 % Low 37-47 [facility] Comment on above: Performed By: #### L 100.0600 #### [facility] [address] [place], [address] Performed By: #### L 100.0600 ####[facility] [address] [place], [address] HCT Normal 37-47 [facility] Comment on above: Result Comment: Canc elled via OM: MD Ordered Performed By: #### L 501.080 #### [facility] [address] [place], [address] Result Comment: Canc elled via OM: MD Ordered Performed By: #### L 100.0600 ####[facility] [address] [place], [address] HGB Normal 12.0-15.0 [facility] Comment on above: Result Comment: Canc elled via OM: MD Ordered Performed By: #### L 501.080 #### [facility] [address] [place], [address] Result Comment: Canc elled via OM: MD Ordered Performed By: #### L 100.0600 ####[facility] [address] [place], [address] Hemoglobin (Bld) [Mass/Vol] 9.6 g/dL Low 12.0-15.0 [facility] Comment on above: Performed By: #### L 100.0600 #### [facility] [address] [place], [address] Performed By: #### L 300.3900, L100.0100, L500.2500 #### [facility] [address] [place], [address] Performed By: #### L 100.0600 ####[facility] [address] [place], [address] Performed By: #### L 300.3900, L100.0100, L500.2500 ####[facility] [address] [place], [address] Immature granulocytes/100 WB C Auto (Bld)Ordered By: Janine Harrison on 08-03-2024 Immature granulocytes/100 WBC (Bld) 0.700 % 0.0-0.9 [facility] Comment on above: IG% - Immature Granu locytes (promyelocytes, myelocytes and metamyelocytes) > 1% indicates that a LEFT SHIFT is Present. MR/CON.PCM.Tian 08-03-2024 MR/CON.PCM.GI [facility] Medical Records Department [address] [place] [address] Consultation - GI 08/03/24 1537 MR#: [id number] Acct: [id number] Name: KATHERINE JUDGE Rep #: [id number] : 1935 89 From: Nomi Friend PCP: Dr. Kam Ocampo Sr., DO Status:ADM IN Location: MS3 [id number] HPI Consult Data Date of Consult: 08/03/24 HPI Narrative Reason for Consultation: Anemia HPI Narrative: KATHERINE JUDGE, is a 89 F who [id number] female with past medical history of TIA/CVA. [...] urinary bladder. Minimal intrahepatic biliary ductal dilatation. 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 Normal [facility] MR/CON.PCM.GI Normal [facility] Monocyte percentageOrdered B y: Janine Harrison on 08-03-2024 Monocytes/100 WBC (Bld) 8.1 % 0-10 [facility] Neutrophil percentageOrdered By: Janine Harrison on 08-03-2024 Neutrophils/100 WBC (Bld) 66.5 % 47-70 [facility] Nucleated red blood cell per centageOrdered By: Janine Harrison on 08-03-2024 Nucleated RBC/100 WBC (Bld) [Ratio] 0 % 0-5 [facility] Pelvis without IV Contraston 08-03-2024 Pelvis without IV Contrast [facility] Imaging Services [address] [place], [place] [address] Pelvis without IV Contrast MR#: [id number] Acct: [id number] Name: KATHERINE JUDGE Rep #: [id number] : 1935 F 89 From: Spencer jaime MD PCP: Dr. Kam Ocampo Sr., DO Status: ADM IN Study: Pelvis without IV Contrast Date of Exam: 08/03 Exam# [id number] Ordering Dr: Hayden Diaz DO PROCEDURE: PELVIS [...] No evidence of localized hematoma. Reading Location: [id number] CC: Dr. Hayden Diaz, DO; Dr. Kam Ocampo Sr., DO Shaper Operator: Signed Normal [facility] Pelvis without IV Contrast Normal [facility] Prothrombin Time w/INRon INR Coag (PPP) [Relative time] 1.1 {INR} Normal [facility] Comment on above: Performed By: #### L 300.3900, L100.0100, L500.2500 #### [facility] Laboratory [address] [place], [address] Performed By: #### L 300.3900, L100.0100, L500.2500 ####[facility] [address] [place], [address] PT Coag (PPP) [Time] 14.6 s Normal 11.7-14.9 [facility] Comment on above: Performed By: #### L 300.3900, L100.0100, L500.2500 #### [facility] Laboratory [address] [place], [address] Performed By: #### L 300.3900, L100.0100, L500.2500 ####[facility] [address] [place], [address] Urine Cultureon 08-03-2024 URC Culture exhibits no growth. Normal [facility] Comment on above: Performed By: #### L 400.0001, M100.2200 ####[facility] [address] [place], [address] Abdomen/Pelvis W IV Cont ONL Yon 08-02-2024 Abdomen/Pelvis W IV Cont ONLY [facility] Imaging Services [address] [place] [place], [place] [address] Abdomen/Pelvis W IV Cont ONLY MR#: [id number] Acct: [id number] Name: KATHERINE JUDGE Rep #: [id number] : 1935 F 89 From: Spencer jaime MD PCP: Dr. Kam Ocampo Sr., DO Status: REG ER Study: Abdomen/Pelvis W IV Cont ONLY Date of Exam: Exam# [id number] Ordering Dr: Jamie Beltrán DO PROCEDURE: ABDOMEN/PELVIS [...] Minimal intrahepatic biliary ductal dilatation. Reading Location: [id number] CC: Dr. Kam Ocampo Sr., DO; Dr. Jamie Beltrán, DO Shaper Operator: Signed Normal [facility] Abdomen/Pelvis W IV Cont ONLY Normal [facility] Absolute lymphocyte countOrd ered By: Jamie Beltrán on 08-02-2024 Lymphocytes Auto (Unsp spec) [#/Vol] 1.51 10*3/uL 0.83-4.51 [facility] Absolute neutrophil countOrd ered By: Jamie Bletrán on 08-02-2024 Neutrophils (Bld) [#/Vol] 5.4 10*3/uL 2.0-7.7 [facility] Ammoniaon 08-02-2024 Ammonia (P) [Moles/Vol] 30.4 umol/L Normal [facility] Comment on above: Performed By: #### L 500.4050, L100.0500 #### [facility] Laboratory [address] [place], [address] Performed By: #### L 503.0106, L506.0200, L503.5510, L100.0600 ####[facility] [address] [place], [address] Anion gap in Serum or Plasma Ordered By: Jamie Beltrán on 08-02-2024 Anion gap [Moles/Vol] 8 mmol/L 5-15 [facility] Antigen 08-02-2024 ANTIGEN ID Negative Normal [facility] Comment on above: Order Comment: 301.2 Performed By: #### L 500.2500, L100.0500 #### [facility] Laboratory [address] [place], [address] Order Comment: CMV N EG? NNumber of units to transfuse: 1Reason for Ordering Blood: AcuteAre the blood/blood products to be transfused? YIs the patient having/had surgery? NNWhen ReadyNYA Performed By: #### B LAQ3544, BTS, BRC, A42071-2, BAGM ####[facility] [address] [place], [address] Automated lymphocyte count a s percentage of total leukocytesOrdered By: Jamie Beltrán on 08-02-2024 Lymphocytes/100 WBC Auto (Unsp spec) 19.7 % 19-41 [facility] [id number] 08-02-2024 ANTIBODY ID M Normal [facility] Comment on above: Order Comment: 301.2 Performed By: #### L 500.2500, L100.0500 #### [facility] [address] [place], [address] Order Comment: CMV N EG? NNumber of units to transfuse: 1Reason for Ordering Blood: AcuteAre the blood/blood products to be transfused? YIs the patient having/had surgery? NWhen Katelyn Performed By: #### B DXH4010, BTS, BR, P90983-4, BAGM ####[facility] [address] [place], [address] BRCon 08-02-2024 RC Normal [facility] Comment on above: Result Comment: [id number] OP RC TRANSFUSED 08/02/242022 [id number] OP RC XM COMPATIBLE [id number] OP RC XM COMPATIBLE Performed By: #### L 500.2500, L100.0500 #### [facility] [address] [place], [address] Result Comment: [id number] OP RC TRANSFUSED 08/02/[id number] OP RC NOT [id number] OP RC NOT AVAILABLE Performed By: #### B OXE1728, BTS, BRC, T43011-1, BAGM ####[facility] [address] [place], [address] BUN/creatinine ratioOrdered By: Jamie Beltrán on 08-02-2024 Urea nitrogen/Creatinine [Mass ratio] 21.5 mg/mg High 10-20 [facility] Basophil percentageOrdered B y: Jamie Beltrán on 08-02-2024 Basophils/100 WBC (Bld) 0.4 % 0-1 [facility] Bilirubin Test strip Ql (U)O rdered By: Jamie Beltrán on 08-02-2024 Bilirubin Ql (U) Negative Negative [facility] Bilirubin, totalOrdered By: Jamie Beltrán on 08-02-2024 Bilirubin [Mass/Vol] 0.80 mg/dL 0.00-1.30 [facility] CBC W/Diff, Automatedon 07-11 Absolute Lymph 1.51 X10 3/uL Normal 0.83-4.51 [facility] Comment on above: Performed By: #### L 500.4050, L100.0500 #### [facility] [address] [place], [address] Performed By: #### L 501.2450, L500.4050, L100.0100 ####[facility] [address] [place], [address] Absolute Neut 5.4 X10 3/uL Normal 2.0-7.7 [facility] Comment on above: Performed By: #### L 500.4050, L100.0500 #### [facility] [address] [place], [address] Performed By: #### L 501.2450, L500.4050, L100.0100 ####[facility] [address] [place], [address] Basophils/100 WBC (Bld) 0.4 % Normal 0-1 [facility] Comment on above: Performed By: #### L 500.4050, L100.0500 #### [facility] [address] [place], [address] Performed By: #### L 501.2450, L500.4050, L100.0100 ####[facility] [address] [place], [address] Eosinophils/100 WBC (Bld) 1.4 % Normal 0-5 [facility] Comment on above: Performed By: #### L 500.4050, L100.0500 #### [facility] [address] [place], [address] Performed By: #### L 501.2450, L500.4050, L100.0100 ####[facility] [address] [place], [address] Erythrocyte distribution width (RBC) [Ratio] 15.9 % High 11.6-14.6 [facility] Comment on above: Performed By: #### L 500.4050, L100.0500 #### [facility] [address] [place], [address] Performed By: #### L 501.2450, L500.4050, L100.0100 ####[facility] [address] [place], [address] Hematocrit (Bld) [Volume fraction] 21.3 % Low 37-47 [facility] Comment on above: Performed By: #### L 500.4050, L100.0500 #### [facility] [address] [place], [address] Performed By: #### L 501.2450, L500.4050, L100.0100 ####[facility] [address] [place], [address] Hemoglobin (Bld) [Mass/Vol] 7.3 g/dL Low 12.0-15.0 [facility] Comment on above: Performed By: #### L 500.4050, L100.0500 #### [facility] [address] [place], [address] Performed By: #### L 501.2450, L500.4050, L100.0100 ####[facility] [address] [place], [address] IG% 0.500 Normal 0.0-0.9 [facility] Comment on above: Result Comment: IG% - Immature Granulocytes (promyelocytes, myelocytes and metamyelocytes) > 1% indicates that a LEFT SHIFT is Present. Performed By: #### L 500.4050, L100.0500 #### [facility] [address] [place], [address] Result Comment: IG% - Immature Granulocytes (promyelocytes, myelocytes andmetamyelocytes) > 1% indicates that a LEFT SHIFT is Present. Performed By: #### L 501.2450, L500.4050, L100.0100 ####[facility] [address] [place], [address] Lymphocytes/100 WBC (Bld) 19.7 % Normal 19-41 [facility] Comment on above: Performed By: #### L 500.4050, L100.0500 #### [facility] [address] [place], [address] Performed By: #### L 501.2450, L500.4050, L100.0100 ####[facility] [address] [place], [address] MCH (RBC) [Entitic mass] 34.6 pg High 27.0-32.0 [facility] Comment on above: Performed By: #### L 500.4050, L100.0500 #### [facility] [address] [place], [address] Performed By: #### L 501.2450, L500.4050, L100.0100 ####[facility] [address] [place], [address] MCHC (RBC) [Mass/Vol] 34.3 g/dL Normal 32-36 [facility] Comment on above: Performed By: #### L 500.4050, L100.0500 #### [facility] [address] [place], [address] Performed By: #### L 501.2450, L500.4050, L100.0100 ####[facility] [address] [place], [address] MCV (RBC) [Entitic vol] 100.9 fL High 81-99 [facility] Comment on above: Performed By: #### L 500.4050, L100.0500 #### [facility] [address] [place], [address] Performed By: #### L 501.2450, L500.4050, L100.0100 ####[facility] [address] [place], [address] Monocytes/100 WBC (Bld) 7.2 % Normal 0-10 [facility] Comment on above: Performed By: #### L 500.4050, L100.0500 #### [facility] [address] [place], [address] Performed By: #### L 501.2450, L500.4050, L100.0100 ####[facility] [address] [place], [address] Neutrophils/100 WBC (Bld) 70.8 % High 47-70 [facility] Comment on above: Performed By: #### L 500.4050, L100.0500 #### [facility] [address] [place], [address] Performed By: #### L 501.2450, L500.4050, L100.0100 ####[facility] [address] [place], [address] Nucleated RBC (Bld) [#/Vol] 0 10*3/uL Normal 0-5 [facility] Comment on above: Performed By: #### L 500.4050, L100.0500 #### [facility] [address] [place], [address] Performed By: #### L 501.2450, L500.4050, L100.0100 ####[facility] [address] [place], [address] Platelet mean volume (Bld) [Entitic vol] 8.9 fL Normal 6.2-12.0 [facility] Comment on above: Performed By: #### L 500.4050, L100.0500 #### [facility] [address] [place], [address] Performed By: #### L 501.2450, L500.4050, L100.0100 ####[facility] [address] [place], [address] Platelets (Bld) [#/Vol] 263 10*3/uL Normal 150-450 [facility] Comment on above: Performed By: #### L 500.4050, L100.0500 #### [facility] [address] [place], [address] Performed By: #### L 501.2450, L500.4050, L100.0100 ####[facility] [address] [place], [address] RBC (Bld) [#/Vol] 2.11 10*6/uL Low 4.2-5.4 [facility] Comment on above: Performed By: #### L 500.4050, L100.0500 #### [facility] [address] [place], [address] Performed By: #### L 501.2450, L500.4050, L100.0100 ####[facility] [address] [place], [address] RDW SD 50.4 fl High 35.1-43.9 [facility] Comment on above: Performed By: #### L 500.4050, L100.0500 #### [facility] [address] [place], [address] Performed By: #### L 501.2450, L500.4050, L100.0100 ####[facility] [address] [place], [address] WBC (Bld) [#/Vol] 7.7 10*3/uL Normal 4.4-11.0 [facility] Comment on above: Performed By: #### L 500.4050, L100.0500 #### [facility] [address] [place], [address] Performed By: #### L 501.2450, L500.4050, L100.0100 ####[facility] [address] [place], [address] Carbon dioxide, total [Moles /volume] in Central venous bloodOrdered By: Jamie Beltrán on 08-02-2024 CO2 [Moles/Vol] 34.9 mmol/L High 21.0-32.0 [facility] Chloride assayOrdered By: Juan Beltrán on 08-02-2024 Chloride [Moles/Vol] 98 mmol/L 98-108 [facility] Comprehensive Metabolic Prof ilon 08-02-2024 Albumin [Mass/Vol] 3.0 g/dL Low 3.4-4.8 [facility] Comment on above: Performed By: #### L 500.4050, L100.0500 #### [facility] [address] [place], [address] Performed By: #### L 501.2450, L500.4050, L100.0100 ####[facility] [address] [place], [address] Albumin/Globulin [Mass ratio] 1.1 {ratio} Normal 0.9-2.4 [facility] Comment on above: Performed By: #### L 500.4050, L100.0500 #### [facility] [address] [place], [address] Performed By: #### L 501.2450, L500.4050, L100.0100 ####[facility] [address] [place], [address] ALK PHOS 75 U/L Normal 35-104 [facility] Comment on above: Performed By: #### L 500.4050, L100.0500 #### [facility] [address] [place], [address] Performed By: #### L 501.2450, L500.4050, L100.0100 ####[facility] [address] [place], [address] ALT [Catalytic activity/Vol] 25 U/L Normal <=34 [facility] Comment on above: Performed By: #### L 500.4050, L100.0500 #### [facility] [address] [place], [address] Performed By: #### L 501.2450, L500.4050, L100.0100 ####[facility] [address] [place], [address] AST [Catalytic activity/Vol] 36 U/L High <=31 [facility] Comment on above: Performed By: #### L 500.4050, L100.0500 #### [facility] [address] [place], [address] Performed By: #### L 501.2450, L500.4050, L100.0100 ####[facility] [address] [place], [address] Bilirubin [Mass/Vol] 0.80 mg/dL Normal 0.00-1.30 [facility] Comment on above: Performed By: #### L 500.4050, L100.0500 #### [facility] [address] [place], [address] Performed By: #### L 501.2450, L500.4050, L100.0100 ####[facility] [address] [place], [address] BUN/CRE 21.5 RATIO High 10-20 [facility] Comment on above: Performed By: #### L 500.4050, L100.0500 #### [facility] [address] [place], [address] Performed By: #### L 501.2450, L500.4050, L100.0100 ####[facility] [address] [place], [address] Calcium [Mass/Vol] 9.7 mg/dL Normal 7.6-11.0 [facility] Comment on above: Performed By: #### L 500.4050, L100.0500 #### [facility] [address] [place], [address] Performed By: #### L 501.2450, L500.4050, L100.0100 ####[facility] [address] [place], [address] Chloride [Moles/Vol] 98 mmol/L Normal 98-108 [facility] Comment on above: Performed By: #### L 500.4050, L100.0500 #### [facility] [address] [place], [address] Performed By: #### L 501.2450, L500.4050, L100.0100 ####[facility] [address] [place], [address] CO2 [Moles/Vol] 34.9 mmol/L High 21.0-32.0 [facility] Comment on above: Performed By: #### L 500.4050, L100.0500 #### [facility] [address] [place], [address] Performed By: #### L 501.2450, L500.4050, L100.0100 ####[facility] [address] [place], [address] Creatinine [Mass/Vol] 0.83 mg/dL Normal 0.70-1.20 [facility] Comment on above: Performed By: #### L 500.4050, L100.0500 #### [facility] [address] [place], [address] Performed By: #### L 501.2450, L500.4050, L100.0100 ####[facility] [address] [place], [address] ECRCL 33.65 ml/min Low 50-250 [facility] Comment on above: Performed By: #### L 500.4050, L100.0500 #### [facility] [address] [place], [address] Performed By: #### L 501.2450, L500.4050, L100.0100 ####[facility] [address] [place], [address] GAP 8 Normal 5-15 [facility] Comment on above: Performed By: #### L 500.4050, L100.0500 #### [facility] [address] [place], [address] Performed By: #### L 501.2450, L500.4050, L100.0100 ####[facility] [address] [place], [address] GFR/1.73 sq M.predicted among non-blacks MDRD (S/P/Bld) [Vol rate/Area] 68 mL/min/{1.73_m2} Normal >60 [facility] Comment on above: Result Comment: mL/m in/1.73m2 CKD-EPI Creatinine Equation (2020) Performed By: #### L 500.4050, L100.0500 #### [facility] [address] [place], [address] Result Comment: mL/m in/1.73m2 CKD-EPI Creatinine Equation (2020) Performed By: #### L 501.2450, L500.4050, L100.0100 ####[facility] [address] [place], [address] Globulin (S) [Mass/Vol] 2.8 g/dL Normal 2.2-4.2 [facility] Comment on above: Performed By: #### L 500.4050, L100.0500 #### [facility] [address] [place], [address] Performed By: #### L 501.2450, L500.4050, L100.0100 ####[facility] [address] [place], [address] Glucose [Mass/Vol] 114 mg/dL High 70-99 [facility] Comment on above: Performed By: #### L 500.4050, L100.0500 #### [facility] [address] [place], [address] Performed By: #### L 501.2450, L500.4050, L100.0100 ####[facility] [address] [place], [address] Potassium [Moles/Vol] 3.6 mmol/L Normal 3.3-5.1 [facility] Comment on above: Performed By: #### L 500.4050, L100.0500 #### [facility] [address] [place], [address] Performed By: #### L 501.2450, L500.4050, L100.0100 ####[facility] [address] [place], [address] Sodium [Moles/Vol] 141 mmol/L Normal 133-145 [facility] Comment on above: Performed By: #### L 500.4050, L100.0500 #### [facility] [address] [place], [address] Performed By: #### L 501.2450, L500.4050, L100.0100 ####[facility] [address] [place], [address] T PROT 5.8 g/dL Low 5.9-8.4 [facility] Comment on above: Performed By: #### L 500.4050, L100.0500 #### [facility] [address] [place], [address] Performed By: #### L 501.2450, L500.4050, L100.0100 ####[facility] [address] [place], [address] Urea nitrogen [Mass/Vol] 18 mg/dL Normal 4-19 [facility] Comment on above: Performed By: #### L 500.4050, L100.0500 #### [facility] [address] [place], [address] Performed By: #### L 501.2450, L500.4050, L100.0100 ####[facility] [address] [place], [address] Emergency Department Summary on 08-02-2024 Emergency Department Summary [facility] Medical Records Department [address] [place] [address] Emergency Department Summary 08/02/24 MR#: [id number] Acct: [id number] Name: KATHERINE JUDGE Rep #: [id number] : 1935 89 From: Jamie Beltrán DO [...] replacement while in the hospital last time. 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 Normal [facility] Emergency Department Summary Normal [facility] Eosinophil percentageOrdered By: Jamietimi Beltrán on 08-02-2024 Eosinophils/100 WBC (Bld) 1.4 % 0-5 [facility] Erythrocyte distribution wid th ratioOrdered By: Jamietimi Beltrán on 08-02-2024 Erythrocyte distribution width (RBC) [Ratio] 15.9 % High 11.6-14.6 [facility] Erythrocyte distribution wid th standard deviationOrdered By: Jamietimi Beltrán on 08-02-2024 Erythrocyte distribution width (RBC) [Ratio] 50.4 fl High 35.1-43.9 [facility] Ferritinon 08-02-2024 Ferritin [Mass/Vol] 524 ng/mL High 22-378 [facility] Comment on above: Order Comment: 301.2 Performed By: #### L 501.080 #### [facility] [address] [place], [place], [address] Order Comment: 301.2 Performed By: #### L 503.6079, L503.6550, L503.0106, L100.0600, L506.0200 ####[facility] [address] [place], [address] Folate [Mass/volume] in Seru m or PlasmaOrdered By: Janine Harrison on 08-02-2024 Folate [Mass/Vol] 35.60 ng/mL High 4.60-34.80 [facility] Comment on above: Hemolysis, Results w ill be affected, Requires Recollection. Folate [Mass/volume] in Seru m or PlasmaOrdered By: Kam Ocampo on 08-02-2024 Folate [Mass/Vol] 34.50 ng/mL 4.60-34.80 [facility] Folates,Serum (Folic Acid)on 08-02-2024 FOLATES,SERUM 35.60 ng/mL High 4.60-34.80 [facility] Comment on above: Result Comment: Hemo lysis, Results will be affected, Requires Recollection. Performed By: #### L 500.4050, L100.0500 #### [facility] [address] [place], [address] Result Comment: Hemo lysis, Results will be affected, Requires Recollection. Performed By: #### L 503.0106, L506.0200, L503.5510, L100.0600 ####[facility] [address] [place], [address] FOLATES,SERUM 34.50 ng/mL Normal 4.60-34.80 [facility] Comment on above: Order Comment: 301.2 Y Performed By: #### L 501.080 #### [facility] [address] [place], [address] Order Comment: 301.2 Y Performed By: #### L 503.6030, L503.6550, L503.0106, L100.0600, L506.0200 ####[facility] [address] [place], [address] Glomerular filtration rate ( GFR) estimation/1.73 sq m using serum, plasma, or whole bOrdered By: Jamie Beltrán on 08-02-2024 GFR/1.73 sq M.predicted among non-blacks MDRD (S/P/Bld) [Vol rate/Area] 68 mL/min/{1.73_m2} >60 [facility] Comment on above: mL/min/1.73m2 CKD-EP I Creatinine Equation (2020) H AND P Exam - Hospitaliston 08-02-2024 H&P Exam - Hospitalist [facility] Medical Records Department [address] [place] [address] H P Exam - Hospitalist 08/02/24 1720 MR#: [id number] Acct: [id number] Name: KATHERINE JUDGE Rep #: [id number] : 1935 89 From: Janine Harrison MD PCP: Dr. Kam Ocampo Sr., DO Status:ADM IN [place] [facility] [id number] HPI - General General Date of Admission: 08/02/24 Date of Service: 08/02/24 Chief Complaint: Low hgb HPI Narrative KATHERINE JUDGE, is a 89-year-old female with a history of TIA, hypertension, iron deficiency anemia, hip fracture repair last week, depression, GERD who presented to [facility] ED 08/02/2024 with concerns for low hemoglobin. [...] she has had any surgeries or interventions. [facility] Medical History TIA (transient ischemic attack) Personal history of other diseases of digestive system Noninfective gastroenteritis and colitis, unspecified Essential hypertension Diaphragmatic hernia without obstruction or gangrene Constipation, unspecified 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 Other specified [...] tory cholecalci (more content not included)... Normal [facility] H&P Exam - Hospitalist Normal [facility] HH, Hemoglobin AND Hematocri ton 08-02-2024 Hematocrit (Bld) [Volume fraction] 24.2 % Low 37-47 [facility] Comment on above: Performed By: #### L 500.4050, L100.0500 #### [facility] [address] [place], [place], [address] Performed By: #### L 503.0106, L506.0200, L503.5510, L100.0600 ####[facility] [address] [place], [address] Hemoglobin (Bld) [Mass/Vol] 8.1 g/dL Low 12.0-15.0 [facility] Comment on above: Performed By: #### L 500.4050, L100.0500 #### [facility] [address] [place], [address] Performed By: #### L 503.0106, L506.0200, L503.5510, L100.0600 ####[facility] [address] [place], [address] Hematocrit (Bld) [Volume fraction] 19.0 % Low 37-47 [facility] Comment on above: Order Comment: 301.2 Performed By: #### L 501.080 #### [facility] [address] [place], [address] Order Comment: 301.2 Performed By: #### L 503.6030, L503.6550, L503.0106, L100.0600, L506.0200 ####[facility] [address] [place], [address] Hemoglobin (Bld) [Mass/Vol] 6.2 g/dL Low 12.0-15.0 [facility] Comment on above: Order Comment: 301.2 Performed By: #### L 501.080 #### [facility] [address] [place], [address] Order Comment: 301.2 Performed By: #### L 503.6030, L503.6550, L503.0106, L100.0600, L506.0200 ####[facility] [address] [place], [address] Hematocrit Auto (Bld) [Volum e fraction]Ordered By: Jamie Beltrán on 08-02-2024 Hematocrit (Bld) [Volume fraction] 21.3 % Low 37-[address] [place] [address] Hematocrit Auto (Bld) [Volum e fraction]Ordered By: Kam Ocampo on 08-02-2024 Hematocrit (Bld) [Volume fraction] 19.0 % Low 37-[address] [place] [address] Hemoglobin measurementOrdere d By: Jamie Beltrán on 08-02-2024 Hemoglobin (Bld) [Mass/Vol] 7.3 g/dL Low 12.0-15.0 [facility] Hemoglobin measurementOrdere d By: Kam Ocampo on 08-02-2024 Hemoglobin (Bld) [Mass/Vol] 6.2 g/dL Low 12.0-15.0 [facility] Immature granulocytes/100 WB C Auto (Bld)Ordered By: Jamie Beltrán on 08-02-2024 Immature granulocytes/100 WBC (Bld) 0.500 % 0.0-0.9 [facility] Comment on above: IG% - Immature Granu locytes (promyelocytes, myelocytes and metamyelocytes) > 1% indicates that a LEFT SHIFT is Present. Iron measurement (mass/mass) Ordered By: Kam Ocampo on 08-02-2024 Iron (Unsp spec) [Mass/Mass] 46 ug/dL Low 50-170 [facility] Iron+Iron Binding Capacityon 08-02-2024 TIBC 174 ug/dL Low 250-450 [facility] Comment on above: Order Comment: 301.2 Performed By: #### L 501.080 #### [facility] [address] [place], [place], [address] Order Comment: 301.2 Performed By: #### L 503.6030, L503.6550, L503.0106, L100.0600, L506.0200 ####[facility] [address] [place], [address] Ketones Test strip Ql (U)Ord ered By: Jamie Beltrán on 08-02-2024 Ketones Ql (U) Negative Negative [facility] - Chemistry and C hemistry - challengeOrdered By: Jamie Beltrán on 08-02-2024 AST [Catalytic activity/Vol] 36 U/L High <32 [facility] Lipaseon 08-02-2024 Lipase [Catalytic activity/Vol] 21 U/L Normal 13-75 [facility] Comment on above: Result Comment: Chantel fraser note: LIPASE revised reference range effective 22. New Lipase methodology. Expected to produce lower values than the previous assay method. NEW Reference Range: 13 - 75 U/L Performed By: #### L 500.4050, L100.0500 #### [facility] [address] [place], [place], [address] Result Comment: Plea se note:LIPASE revised reference range effective 22.New Lipase methodology. Expected to produce lower valuesthan the previous assay method.NEW Reference Range: 13 - 75 U/L Performed By: #### L 501.2450, L500.4050, L100.0100 ####[facility] [address] [facility] [place], [address] Lipase measurementOrdered By : Jamie Beltrán on 08-02-2024 Lipase [Catalytic activity/Vol] 21 U/L 13-75 [facility] Comment on above: Please note:LIPASE r evised reference range effective 22. New Lipase methodology. Expected to produce lower values than the previous assay method. NEW Reference Range: 13 - 75 U/L MCV (mean corpuscular volume ) determinationOrdered By: Jamie Beltrán on 08-02-2024 MCV (RBC) [Entitic vol] 100.9 fL High 81-99 [facility] Mean corpuscular hemoglobin (MCH) determinationOrdered By: Jamie Beltrán on 08-02-2024 MCH (RBC) [Entitic mass] 34.6 pg High 27.0-32.0 [facility] Mean corpuscular hemoglobin concentration (MCHC) determinationOrdered By: Jamie Beltrán on 08-02-2024 MCHC (RBC) [Mass/Vol] 34.3 g/dL 32-36 [facility] Mean platelet volume determi nationOrdered By: Jamie Beltrán on 08-02-2024 Platelet mean volume (Bld) [Entitic vol] 8.9 fL 6.2-12.0 [facility] Microscopic analysis of urin e for red blood cells (RBC)Ordered By: Jamie Beltrán on 08-02-2024 Microscopic analysis of urine for red blood cells (RBC) 0-5 SEEN /hpf 0-5 [facility] Monocyte percentageOrdered B y: Jamie Beltrán on 08-02-2024 Monocytes/100 WBC (Bld) 7.2 % 0-10 [facility] Mucus LM Ql (Urine sed)Order ed By: Jamie Beltrán on 08-02-2024 Mucus Ql (Urine sed) 0 SEEN /hpf [facility] Neutrophil percentageOrdered By: Jamie Beltrán on 08-02-2024 Neutrophils/100 WBC (Bld) 70.8 % High 47-70 [facility] Nitrite Test strip Ql (U)Ord ered By: Jamie Beltrán on 08-02-2024 Nitrite Ql (U) Negative Negative [facility] No Panel InformationOrdered By: Kam Ocampo on 08-02-2024 Unsaturated Iron Binding Capacity 128 ug/dL Low 228-428 [facility] Nucleated red blood cell per centageOrdered By: Jamie Beltrán on 08-02-2024 Nucleated RBC/100 WBC (Bld) [Ratio] 0 % 0-5 [facility] Platelet countOrdered By: Juan Beltrán on 08-02-2024 Platelets (Bld) [#/Vol] 263 10*3/uL 150-450 [facility] Potassium measurement (mass/ volume)Ordered By: Jamie Beltrán on 08-02-2024 Potassium (Unsp spec) [Mass/Vol] 3.6 mmol/L 3.3-5.1 [facility] Protein Test strip Ql (U)Ord ered By: Jamie Beltrán on 08-02-2024 Protein Ql (U) Negative Negative [facility] RBC Auto (Bld) [#/Vol]Ordere d By: Jamie Beltrán on 08-02-2024 RBC (Bld) [#/Vol] 2.11 10*6/uL Low 4.2-5.4 [facility] Serum creatinine measurement (mass/volume)Ordered By: Jamie Beltrán on 08-02-2024 Creatinine [Mass/Vol] 0.83 mg/dL 0.70-1.20 [facility] Serum globulin measurementOr dered By: Jamie Beltrán on 08-02-2024 Globulin (S) [Mass/Vol] 2.8 g/dL 2.2-4.2 [facility] Serum glucose measurement (m ass/volume)Ordered By: Jamie Beltrán on 08-02-2024 Glucose [Mass/Vol] 114 mg/dL High 70-99 [facility] Serum or plasma alanine browne otransferase (ALT) measurementOrdered By: Jamie Beltrán on 08-02-2024 ALT [Catalytic activity/Vol] 25 U/L <35 [facility] Serum or plasma albumin светлана urement (mass/volume)Ordered By: Jamie Beltrán on 08-02-2024 Albumin [Mass/Vol] 3.0 g/dL Low 3.4-4.8 [facility] Serum or plasma albumin/glob ulin mass ratioOrdered By: Jamie Beltrán on 08-02-2024 Albumin/Globulin [Mass ratio] 1.1 {ratio} 0.9-2.4 [facility] Serum or plasma alkaline noy sphatase measurementOrdered By: Jamie Beltrán on 08-02-2024 ALP [Catalytic activity/Vol] 75 U/L 35-104 [facility] Serum or plasma calcium светлана urement (mass/volume)Ordered By: Jamie Beltrán on 08-02-2024 Calcium [Mass/Vol] 9.7 mg/dL 7.6-11.0 [facility] Serum or plasma ferritin maria d surement (mass/volume)Ordered By: Kam Ocampo on 08-02-2024 Ferritin [Mass/Vol] 524 ng/mL High 22-378 [facility] Serum or plasma iron saturat ion measurement (mass fraction)Ordered By: Kam Ocampo on 08-02-2024 Iron saturation [Mass fraction] 26.4 % 13-59 [facility] Comment on above: Previous reported re sult: 26.0 %Edited by: SHLOMO on 08/02/24:1336 AMENDED REPORT 08/02/24 0925 IRON SATURATION previously reported as: 26.0 % Serum or plasma urea nitroge n measurement (mass/volume)Ordered By: Jamie Beltrán on 08-02-2024 Urea nitrogen [Mass/Vol] 18 mg/dL 4-19 [facility] Sodium levelOrdered By: Howard Beltrán on 08-02-2024 Sodium [Moles/Vol] 141 mmol/L 133-145 [facility] Squamous epithelial cells de tection in urine sediment by light microscopyOrdered By: Jamie Beltrán on 08-02-2024 Epithelial cells.squamous LM Ql (Urine sed) 0-5 SEEN /hpf 5-10 [facility] Stool Occult Blood iFOBon STOB Positive Normal [facility] Comment on above: Performed By: #### L 500.2500, L100.0500 #### [facility] [address] [place], [place], [id number] Performed By: #### M 100.7900 ####[facility] [address] [place], [place], [id number] Stool gastrointestinal hemog lobin detection by immunologic methodOrdered By: Jamie Beltrán on 08-02-2024 Lower GI hemoglobin IA Ql (Stl) Positive Abnormal [facility] Total proteinOrdered By: Mary Jane Beltrán on 08-02-2024 Protein [Mass/Vol] 5.8 g/dL Low 5.9-8.4 [facility] Type AND Screenon 08-02-2024 Ab SCREEN GEL Positive Abnormal [facility] Comment on above: Order Comment: 301.2 Result Comment: AMENDED REPORT 08/02/241813: Antibody Screen previously reported as: Test not performed AMENDED REPORT 08/02/241814: Antibody Screen previously reported as: Test not performed Performed By: #### L 500.2500, L100.0500 #### [facility] [address] [place], [place], [address] Order Comment: CMV N EG? NNumber of units to transfuse: 1Reason for Ordering Blood: AcuteAre the blood/blood products to be transfused? YIs the patient having/had surgery? NNWhen ReadyNYA Result Comment: AMENDED REPORT 08/02/241813: Antibody Screen previously reported as:Test not performed AMENDED REPORT 08/02/241814: Antibody Screen previously reported as:Test not performed Performed By: #### B TUH9503, BTS, BRC, T00358-6, BAGM ####[facility] [address] [place], [place], [id number] Urinalysis, Completeon 08-02 EPI,SQUAMOUS 0-5 SEEN Normal 5-10 [facility] Comment on above: Order Comment: ADWOA CTOR TO SPECIFY Performed By: #### L 501.080 #### [facility] [address] [place], [address] Order Comment: ADWOA CTOR TO SPECIFY Performed By: #### L 400.0001, M100.2200 ####[facility] [address] [place], [address] RBC 0-5 SEEN Normal 0-5 [facility] Comment on above: Order Comment: ADWOA CTOR TO SPECIFY Performed By: #### L 501.080 #### [facility] [address] [place], [address] Order Comment: ADWOA CTOR TO SPECIFY Performed By: #### L 400.0001, M100.2200 ####[facility] [address] [place], [address] WBC 0-5 SEEN Normal 0-5 [facility] Comment on above: Order Comment: ADWOA CTOR TO SPECIFY Performed By: #### L 501.080 #### [facility] [address] [place], [address] Order Comment: ADWOA CTOR TO SPECIFY Performed By: #### L 400.0001, M100.2200 ####[facility] [address] [place], [address] BACTERIA 0 SEEN Normal None Seen [facility] Comment on above: Order Comment: ADWOA CTOR TO SPECIFY Performed By: #### L 501.080 #### [facility] [address] [place], [address] Order Comment: ADWOA CTOR TO SPECIFY Performed By: #### L 400.0001, M100.2200 ####[facility] [address] [place], [address] Mucus Ql (Urine sed) [address] [facility] Comment on above: Order Comment: ADWOA CTOR TO SPECIFY Performed By: #### L 501.080 #### [facility] [address] [place], [place], [address] Order Comment: ADWOA CTOR TO SPECIFY Performed By: #### L 400.0001, M100.2200 ####[facility] [address] [place], [place], [address] Urine clarityOrdered By: Mary Jane Beltrán on 08-02-2024 Clarity (U) Clear Clear [facility] Urine color determinationOrd ered By: Jamie Beltrán on 08-02-2024 Color (U) Straw Yellow [facility] Urine cultureOrdered By: Mary Jane Beltrán on 08-02-2024 Bacteria identified Cx Nom (U) Culture exhibits no growth. [facility] Urine glucose detectionOrder ed By: Jamie Beltrán on 08-02-2024 Glucose Ql (U) Normal mg/dl Normal [facility] Urine leukocyte esterase det ection by dipstickOrdered By: Jamie Beltrán on 08-02-2024 Leukocyte esterase Test strip Ql (U) Negative Negative [facility] Urine pHOrdered By: Jamie akhtar on 08-02-2024 pH (U) 7.0 [pH] 5.0 - 8.0 [facility] Urine sediment bacteria coun t by microscopy (number/high power field)Ordered By: Jamie Beltrán on 08-02-2024 Bacteria LM.HPF (Urine sed) [#/Area] 0 /[HPF] None Seen [facility] Urine specific gravity measu rementOrdered By: Jamie Beltrán on 08-02-2024 Specific gravity (U) [Rel density] 1.010 1.002-1.03 0 [facility] Urine urobilinogen measureme ntOrdered By: Jamie Beltrán on 08-02-2024 Urobilinogen Ql (U) Normal mg/dl Normal [facility] Venous blood ammonia measure mentOrdered By: Janine Harrison on 08-02-2024 Ammonia (P) [Moles/Vol] 30.4 umol/L 11-51 [facility] Vitamin B12on 08-02-2024 Cobalamin (Vitamin B12) [Mass/Vol] 1365 pg/mL High 180-914 [facility] Comment on above: Performed By: #### L 500.4050, L100.0500 #### [facility] [address] [place], [address] Performed By: #### L 503.0106, L506.0200, L503.5510, L100.0600 ####[facility] [address] [place], [address] Cobalamin (Vitamin B12) [Mass/Vol] 1056 pg/mL High 180-914 [facility] Comment on above: Order Comment: 301.2 Performed By: #### L 501.080 #### [facility] [address] [place], [address] Order Comment: 301.2 Performed By: #### L 503.6030, L503.6550, L503.0106, L100.0600, L506.0200 ####[facility] [address] [place], [address] Vitamin B12 ser/plasOrdered By: Janine Harrison on 08-02-2024 Cobalamin (Vitamin B12) [Mass/Vol] 1365 pg/mL High 180-914 [facility] Vitamin B12 ser/plasOrdered By: Kam Ocampo on 08-02-2024 Cobalamin (Vitamin B12) [Mass/Vol] 1056 pg/mL High 180-914 [facility] White blood cell (WBC) count Ordered By: Jamie Beltrán on 08-02-2024 WBC (Bld) [#/Vol] 7.7 10*3/uL 4.4-11.0 [facility] White blood cell countOrdere d By: Jamie Beltrán on 08-02-2024 White blood cell count 0-5 SEEN /hpf 0-5 [facility] Anion gap in Serum or Plasma Ordered By: Kam Ocampo on 08-01-2024 Anion gap [Moles/Vol] 9 mmol/L 5-15 [facility] BUN/creatinine ratioOrdered By: Kam Ocampo on 08-01-2024 Urea nitrogen/Creatinine [Mass ratio] 19.7 mg/mg 10- [facility] Basic Metabolic Profile (BMP )on 08-01-2024 BUN/CRE 19.7 RATIO Normal - [facility] Comment on above: Order Comment: 301.2 Performed By: #### L 500.4050, L100.0500 #### [facility] [address] [place], [address] Order Comment: 301.2 Performed By: #### L 100.0500, L500.2500 ####[facility] [address] [place], [address] Calcium [Mass/Vol] 9.1 mg/dL Normal 7.6-11.0 [facility] Comment on above: Order Comment: 301.2 Performed By: #### L 500.4050, L100.0500 #### [facility] [address] [place], [address] Order Comment: 301.2 Performed By: #### L 100.0500, L500.2500 ####[facility] [address] [place], [address] Chloride [Moles/Vol] 98 mmol/L Normal 98-108 [facility] Comment on above: Order Comment: 301.2 Performed By: #### L 500.4050, L100.0500 #### [facility] [address] [place], [address] Order Comment: 301.2 Performed By: #### L 100.0500, L500.2500 ####[facility] [address] [place], [address] CO2 [Moles/Vol] 32.0 mmol/L Normal 21.0-32.0 [facility] Comment on above: Order Comment: 301.2 Performed By: #### L 500.4050, L100.0500 #### [facility] [address] [place], [address] Order Comment: 301.2 Performed By: #### L 100.0500, L500.2500 ####[facility] [address] [place], [address] Creatinine [Mass/Vol] 0.88 mg/dL Normal 0.70-1.20 [facility] Comment on above: Order Comment: 301.2 Performed By: #### L 500.4050, L100.0500 #### [facility] [address] [place], [address] Order Comment: 301.2 Performed By: #### L 100.0500, L500.2500 ####[facility] [address] [place], [address] GAP 9 Normal 5-15 [facility] Comment on above: Order Comment: 301.2 Performed By: #### L 500.4050, L100.0500 #### [facility] [address] [place], [address] Order Comment: 301.2 Performed By: #### L 100.0500, L500.2500 ####[facility] [address] [place], [address] GFR/1.73 sq M.predicted among non-blacks MDRD (S/P/Bld) [Vol rate/Area] 63 mL/min/{1.73_m2} Normal >60 [facility] Comment on above: Order Comment: 301.2 Result Comment: mL/m in/1.73m2 CKD-EPI Creatinine Equation (2020) Performed By: #### L 500.4050, L100.0500 #### [facility] [address] [place], [address] Order Comment: 301.2 Result Comment: mL/m in/1.73m2 CKD-EPI Creatinine Equation (2020) Performed By: #### L 100.0500, L500.2500 ####[facility] [address] [place], [address] Glucose [Mass/Vol] 96 mg/dL Normal 70-99 [facility] Comment on above: Order Comment: 301.2 Performed By: #### L 500.4050, L100.0500 #### [facility] [address] [place], [address] Order Comment: 301.2 Performed By: #### L 100.0500, L500.2500 ####[facility] [address] [place], [address] Potassium [Moles/Vol] 4.1 mmol/L Normal 3.3-5.1 [facility] Comment on above: Order Comment: 301.2 Performed By: #### L 500.4050, L100.0500 #### [facility] [address] [place], [address] Order Comment: 301.2 Performed By: #### L 100.0500, L500.2500 ####[facility] [address] [place], [address] Sodium [Moles/Vol] 139 mmol/L Normal 133-145 [facility] Comment on above: Order Comment: 301.2 Performed By: #### L 500.4050, L100.0500 #### [facility] [address] [place], [address] Order Comment: 301.2 Performed By: #### L 100.0500, L500.2500 ####[facility] [address] [place], [address] Urea nitrogen [Mass/Vol] 17 mg/dL Normal 4-19 [facility] Comment on above: Order Comment: 301.2 Performed By: #### L 500.4050, L100.0500 #### [facility] [address] [place], [address] Order Comment: 301.2 Performed By: #### L 100.0500, L500.2500 ####[facility] [address] [place], [address] CBC-Complete Blood Cnt No Di ffon 08-01-2024 Erythrocyte distribution width (RBC) [Ratio] 14.6 % Normal 11.6-14.6 [facility] Comment on above: Order Comment: 301.2 Performed By: #### L 500.4050, L100.0500 #### [facility] [address] [place], [address] Order Comment: 301.2 Performed By: #### L 100.0500, L500.2500 ####[facility] [address] [place], [address] Hematocrit (Bld) [Volume fraction] 20.9 % Low 37-47 [facility] Comment on above: Order Comment: 301.2 Performed By: #### L 500.4050, L100.0500 #### [facility] [address] [place], [address] Order Comment: 301.2 Performed By: #### L 100.0500, L500.2500 ####[facility] [address] [place], [address] Hemoglobin (Bld) [Mass/Vol] 7.0 g/dL Low 12.0-15.0 [facility] Comment on above: Order Comment: 301.2 Performed By: #### L 500.4050, L100.0500 #### [facility] [address] [place], [address] Order Comment: 301.2 Performed By: #### L 100.0500, L500.2500 ####[facility] [address] [place], [address] MCH (RBC) [Entitic mass] 33.7 pg High 27.0-32.0 [facility] Comment on above: Order Comment: 301.2 Performed By: #### L 500.4050, L100.0500 #### [facility] [address] [place], [address] Order Comment: 301.2 Performed By: #### L 100.0500, L500.2500 ####[facility] [address] [place], [address] MCHC (RBC) [Mass/Vol] 33.5 g/dL Normal 32-36 [facility] Comment on above: Order Comment: 301.2 Performed By: #### L 500.4050, L100.0500 #### [facility] [address] [place], [address] Order Comment: 301.2 Performed By: #### L 100.0500, L500.2500 ####[facility] [address] [place], [address] MCV (RBC) [Entitic vol] 100.5 fL High 81-99 [facility] Comment on above: Order Comment: 301.2 Performed By: #### L 500.4050, L100.0500 #### [facility] [address] [place], [address] Order Comment: 301.2 Performed By: #### L 100.0500, L500.2500 ####[facility] [address] [place], [address] Platelet mean volume (Bld) [Entitic vol] 9.3 fL Normal 6.2-12.0 [facility] Comment on above: Order Comment: 301.2 Performed By: #### L 500.4050, L100.0500 #### [facility] [address] [place], [address] Order Comment: 301.2 Performed By: #### L 100.0500, L500.2500 ####[facility] [address] [place], [address] Platelets (Bld) [#/Vol] 224 10*3/uL Normal 150-450 [facility] Comment on above: Order Comment: 301.2 Performed By: #### L 500.4050, L100.0500 #### [facility] [address] [place], [address] Order Comment: 301.2 Performed By: #### L 100.0500, L500.2500 ####[facility] [address] [place], [address] RBC (Bld) [#/Vol] 2.08 10*6/uL Low 4.2-5.4 [facility] Comment on above: Order Comment: 301.2 Performed By: #### L 500.4050, L100.0500 #### [facility] [address] [place], [address] Order Comment: 301.2 Performed By: #### L 100.0500, L500.2500 ####[facility] [address] [place], [address] RDW SD 51.6 fl High 35.1-43.9 [facility] Comment on above: Order Comment: 301.2 Performed By: #### L 500.4050, L100.0500 #### [facility] [address] [place], [address] Order Comment: 301.2 Performed By: #### L 100.0500, L500.2500 ####[facility] [address] [place], [address] WBC (Bld) [#/Vol] 6.6 10*3/uL Normal 4.4-11.0 [facility] Comment on above: Order Comment: 301.2 Performed By: #### L 500.4050, L100.0500 #### [facility] [address] [place], [place], [address] Order Comment: 301.2 Performed By: #### L 100.0500, L500.2500 ####[facility] [address] [place], [address] Carbon dioxide, total [Moles /volume] in Central venous bloodOrdered By: Kam Ocampo on 08-01-2024 CO2 [Moles/Vol] 32.0 mmol/L 21.0-32.0 [facility] Chloride assayOrdered By: Dugan on 08-01-2024 Chloride [Moles/Vol] 98 mmol/L 98-108 [facility] Erythrocyte distribution wid th ratioOrdered By: Kam Ocampo on 08-01-2024 Erythrocyte distribution width (RBC) [Ratio] 14.6 % 11.6-14.6 [facility] Erythrocyte distribution wid th standard deviationOrdered By: Kam Ocampo on 08-01-2024 Erythrocyte distribution width (RBC) [Ratio] 51.6 fl High 35.1-43.9 [facility] Glomerular filtration rate ( GFR) estimation/1.73 sq m using serum, plasma, or whole bOrdered By: Kam Ocampo on 08-01-2024 GFR/1.73 sq M.predicted among non-blacks MDRD (S/P/Bld) [Vol rate/Area] 63 mL/min/{1.73_m2} >60 [facility] Comment on above: mL/min/1.73m2 CKD-EP I Creatinine Equation (2020) Hematocrit Auto (Bld) [Volum e fraction]Ordered By: Kam Ocampo on 08-01-2024 Hematocrit (Bld) [Volume fraction] 20.9 % Low 37-47 [facility] Hemoglobin measurementOrdere d By: Kam Ocampo on 08-01-2024 Hemoglobin (Bld) [Mass/Vol] 7.0 g/dL Low 12.0-15.0 [facility] MCV (mean corpuscular volume ) determinationOrdered By: Kam Ocampo on 08-01-2024 MCV (RBC) [Entitic vol] 100.5 fL High 81-99 [facility] Mean corpuscular hemoglobin (MCH) determinationOrdered By: Kam Ocampo on 08-01-2024 MCH (RBC) [Entitic mass] 33.7 pg High 27.0-32.0 [facility] Mean corpuscular hemoglobin concentration (MCHC) determinationOrdered By: Kam Ocampo on 08-01-2024 MCHC (RBC) [Mass/Vol] 33.5 g/dL 32-36 [facility] Mean platelet volume determi nationOrdered By: Kam Ocampo on 08-01-2024 Platelet mean volume (Bld) [Entitic vol] 9.3 fL 6.2-12.0 [facility] Platelet countOrdered By: Dugan on 08-01-2024 Platelets (Bld) [#/Vol] 224 10*3/uL 150-450 [facility] Potassium measurement (mass/ volume)Ordered By: Kam Ocampo on 08-01-2024 Potassium (Unsp spec) [Mass/Vol] 4.1 mmol/L 3.3-5.1 [facility] RBC Auto (Bld) [#/Vol]Ordere d By: Kam Ocampo on 08-01-2024 RBC (Bld) [#/Vol] 2.08 10*6/uL Low 4.2-5.4 [facility] Serum creatinine measurement (mass/volume)Ordered By: Kam Ocampo on 08-01-2024 Creatinine [Mass/Vol] 0.88 mg/dL 0.70-1.20 [facility] Serum glucose measurement (m ass/volume)Ordered By: Kam Ocampo on 08-01-2024 Glucose [Mass/Vol] 96 mg/dL 70-99 [facility] Serum or plasma calcium светлана urement (mass/volume)Ordered By: Kam Ocampo on 08-01-2024 Calcium [Mass/Vol] 9.1 mg/dL 7.6-11.0 [facility] Serum or plasma urea nitroge n measurement (mass/volume)Ordered By: Kam Ocampo on 08-01-2024 Urea nitrogen [Mass/Vol] 17 mg/dL 4-19 [facility] Sodium levelOrdered By: Kam Ocampo on 08-01-2024 Sodium [Moles/Vol] 139 mmol/L 133-145 [facility] White blood cell (WBC) count Ordered By: Kam Ocampo on 08-01-2024 WBC (Bld) [#/Vol] 6.6 10*3/uL 4.4-11.0 [facility] CBC-Complete Blood Cnt No Di ffon 07-29-2024 HCT Normal 37-47 [facility] Comment on above: Result Comment: Canc elled via OM: MD Ordered Performed By: #### L 100.0500 ####[facility] [address] [place], [address] HGB Normal 12.0-15.0 [facility] Comment on above: Result Comment: Canc elled via OM: MD Ordered Performed By: #### L 100.0500 ####[facility] [address] [place], [address] MCH Normal 27.0-32.0 [facility] Comment on above: Result Comment: Canc elled via OM: MD Ordered Performed By: #### L 100.0500 ####[facility] [address] [place], [address] MCHC Normal 32-36 [facility] Comment on above: Result Comment: Canc elled via OM: MD Ordered Performed By: #### L 100.0500 ####[facility] [address] [place], [address] MCV Normal 81-99 [facility] Comment on above: Result Comment: Canc elled via OM: MD Ordered Performed By: #### L 100.0500 ####[facility] [address] [place], [address] PLT Normal 150-450 [facility] Comment on above: Result Comment: Canc elled via OM: MD Ordered Performed By: #### L 100.0500 ####[facility] [address] [place], [address] RBC Normal 4.2-5.4 [facility] Comment on above: Result Comment: Canc elled via OM: MD Ordered Performed By: #### L 100.0500 ####[facility] [address] [place], [address] RDW CV Normal 11.6-14.6 [facility] Comment on above: Result Comment: Canc elled via OM: MD Ordered Performed By: #### L 100.0500 ####[facility] [address] [place], [address] RDW SD Normal 35.1-43.9 [facility] Comment on above: Result Comment: Canc elled via OM: MD Ordered Performed By: #### L 100.0500 ####[facility] [address] [place], [address] WBC Normal 4.4-11.0 [facility] Comment on above: Result Comment: Canc elled via OM: MD Ordered Performed By: #### L 100.0500 ####[facility] [address] [place], [address] Absolute lymphocyte countOrd ered By: Neymar Cunningham on 07-28-2024 Lymphocytes Auto (Unsp spec) [#/Vol] 2.02 10*3/uL 0.83-4.51 [facility] Absolute neutrophil countOrd ered By: Neymar Cunningham on 07-28-2024 Neutrophils (Bld) [#/Vol] 5.3 10*3/uL 2.0-7.7 [facility] Anion gap in Serum or Plasma Ordered By: Neymar Cunningham on 07-28-2024 Anion gap [Moles/Vol] 7 mmol/L 5-15 [facility] Automated lymphocyte count a s percentage of total leukocytesOrdered By: Neymar Cunningham on 07-28-2024 Lymphocytes/100 WBC Auto (Unsp spec) 25.1 % [facility] BUN/creatinine ratioOrdered By: Neymar Cunningham on 07-28-2024 Urea nitrogen/Creatinine [Mass ratio] 19.7 mg/mg - [facility] Basic Metabolic Profile (BMP )on 07-28-2024 BUN/CRE 19.7 RATIO Normal - [facility] Comment on above: Performed By: #### L 500.2500, L100.0100 ####[facility] [address] [place], [address] Calcium [Mass/Vol] 8.8 mg/dL Normal 7.6-11.0 [facility] Comment on above: Performed By: #### L 500.2500, L100.0100 ####[facility] [address] [place], [address] Chloride [Moles/Vol] 101 mmol/L Normal 98-108 [facility] Comment on above: Performed By: #### L 500.2500, L100.0100 ####[facility] [address] [place], [address] CO2 [Moles/Vol] 29.4 mmol/L Normal 21.0-32.0 [facility] Comment on above: Performed By: #### L 500.2500, L100.0100 ####[facility] [address] [place], [address] Creatinine [Mass/Vol] 0.88 mg/dL Normal 0.70-1.20 [facility] Comment on above: Performed By: #### L 500.2500, L100.0100 ####[facility] [address] [place], [address] ECRCL 31.74 ml/min Low 50-250 [facility] Comment on above: Performed By: #### L 500.2500, L100.0100 ####[facility] [address] [place], [address] GAP 7 Normal 5-15 [facility] Comment on above: Performed By: #### L 500.2500, L100.0100 ####[facility] [address] [place], [address] GFR/1.73 sq M.predicted among non-blacks MDRD (S/P/Bld) [Vol rate/Area] 63 mL/min/{1.73_m2} Normal >60 [facility] Comment on above: Result Comment: mL/m in/1.73m2 CKD-EPI Creatinine Equation (2020) Performed By: #### L 500.2500, L100.0100 ####[facility] [address] [place], [address] Glucose [Mass/Vol] 98 mg/dL Normal 70-99 [facility] Comment on above: Performed By: #### L 500.2500, L100.0100 ####[facility] [address] [place], [address] Potassium [Moles/Vol] 4.2 mmol/L Normal 3.3-5.1 [facility] Comment on above: Performed By: #### L 500.2500, L100.0100 ####[facility] [address] [place], [address] Sodium [Moles/Vol] 137 mmol/L Normal 133-145 [facility] Comment on above: Performed By: #### L 500.2500, L100.0100 ####[facility] [address] [place], [address] Urea nitrogen [Mass/Vol] 17 mg/dL Normal 4-19 [facility] Comment on above: Performed By: #### L 500.2500, L100.0100 ####[facility] [address] [place], [address] Basophil percentageOrdered B y: Neymar Cunningham on 07-28-2024 Basophils/100 WBC (Bld) 0.4 % 0-1 [facility] CBC W/Diff, Automatedon 07-10 Absolute Lymph 2.02 X10 3/uL Normal 0.83-4.51 [facility] Comment on above: Performed By: #### L 500.2500, L100.0100 ####[facility] [address] [place], [address] Absolute Neut 5.3 X10 3/uL Normal 2.0-7.7 [facility] Comment on above: Performed By: #### L 500.2500, L100.0100 ####[facility] [address] [place], [address] Basophils/100 WBC (Bld) 0.4 % Normal 0-1 [facility] Comment on above: Performed By: #### L 500.2500, L100.0100 ####[facility] [address] [place], [address] Eosinophils/100 WBC (Bld) 2.9 % Normal 0-5 [facility] Comment on above: Performed By: #### L 500.2500, L100.0100 ####[facility] [address] [place], [address] Erythrocyte distribution width (RBC) [Ratio] 14.1 % Normal 11.6-14.6 [facility] Comment on above: Performed By: #### L 500.2500, L100.0100 ####[facility] [address] [place], [address] Hematocrit (Bld) [Volume fraction] 22.1 % Low 37-47 [facility] Comment on above: Performed By: #### L 500.2500, L100.0100 ####[facility] [address] [place], [address] Hemoglobin (Bld) [Mass/Vol] 7.3 g/dL Low 12.0-15.0 [facility] Comment on above: Performed By: #### L 500.2500, L100.0100 ####[facility] [address] [place], [address] IG% 0.100 Normal 0.0-0.9 [facility] Comment on above: Result Comment: IG% - Immature Granulocytes (promyelocytes, myelocytes andmetamyelocytes) > 1% indicates that a LEFT SHIFT is Present. Performed By: #### L 500.2500, L100.0100 ####[facility] [address] [place], [address] Lymphocytes/100 WBC (Bld) 25.1 % Normal 19-41 [facility] Comment on above: Performed By: #### L 500.2500, L100.0100 ####[facility] [address] [place], [address] MCH (RBC) [Entitic mass] 32.6 pg High 27.0-32.0 [facility] Comment on above: Performed By: #### L 500.2500, L100.0100 ####[facility] [address] [place], [address] MCHC (RBC) [Mass/Vol] 33.0 g/dL Normal 32-36 [facility] Comment on above: Performed By: #### L 500.2500, L100.0100 ####[facility] [address] [place], [address] MCV (RBC) [Entitic vol] 98.7 fL Normal 81-99 [facility] Comment on above: Performed By: #### L 500.2500, L100.0100 ####[facility] [address] [place], [address] Monocytes/100 WBC (Bld) 5.8 % Normal 0-10 [facility] Comment on above: Performed By: #### L 500.2500, L100.0100 ####[facility] [address] [place], [address] Neutrophils/100 WBC (Bld) 65.7 % Normal 47-70 [facility] Comment on above: Performed By: #### L 500.2500, L100.0100 ####[facility] [address] [place], [address] Nucleated RBC (Bld) [#/Vol] 0 10*3/uL Normal 0-5 [facility] Comment on above: Performed By: #### L 500.2500, L100.0100 ####[facility] [address] [place], [address] Platelet mean volume (Bld) [Entitic vol] 9.4 fL Normal 6.2-12.0 [facility] Comment on above: Performed By: #### L 500.2500, L100.0100 ####[facility] [address] [place], [address] Platelets (Bld) [#/Vol] 135 10*3/uL Low 150-450 [facility] Comment on above: Performed By: #### L 500.2500, L100.0100 ####[facility] [address] [place], [address] RBC (Bld) [#/Vol] 2.24 10*6/uL Low 4.2-5.4 [facility] Comment on above: Performed By: #### L 500.2500, L100.0100 ####[facility] [address] [place], [address] RDW SD 50.4 fl High 35.1-43.9 [facility] Comment on above: Performed By: #### L 500.2500, L100.0100 ####[facility] [address] [place], [address] WBC (Bld) [#/Vol] 8.1 10*3/uL Normal 4.4-11.0 [facility] Comment on above: Performed By: #### L 500.2500, L100.0100 ####[facility] [address] [place], [address] Carbon dioxide, total [Moles /volume] in Central venous bloodOrdered By: Neymar Cunningham on 07-28-2024 CO2 [Moles/Vol] 29.4 mmol/L 21.0-32.0 [facility] Chloride assayOrdered By: Angel Cunningham on 07-28-2024 Chloride [Moles/Vol] 101 mmol/L 98-108 [facility] Electrocardiogram reportOrde red By: Kaden Corcoran on 07-28-2024 EKG study [facility] [address] [place] [address] 12 Lead EKG 07/25/24 1542 MR#: [id number] Acct: [id number] Name: KATHERINE JUDGE Rep #:[id number] : 1935 89 From: Kaden Corcoran MD Attending Dr: Dr. Neymar Cunningham MD Status: ADM IN Ordering Dr: Jacobo Moya DO Date: 0 07/25/24 [place] [facility] [place] Sex: F C Admitted: 07/25/24 Test Reason [...] available Confirmed by KADEN CORCORAN MD ([id number]), mapping editor SANDY BAUTISTA ([id number]) on 55:37:03 AM Referred By: Confirmed By: KADEN CORCORAN MD 07/28/24 0537 Date _ Kaden Corcoran MD CC: Dr. Kam Ocampo Sr., DO; Dr. Jacobo Moya, DO; Dr. Neymar Cunningham MD ~ Signed [facility] Work Phone: [phone] Eosinophil percentageOrdered By: Neymar Cunningham on 07-28-2024 Eosinophils/100 WBC (Bld) 2.9 % 0-5 [facility] Erythrocyte distribution wid th ratioOrdered By: Neymar Cunningham on 07-28-2024 Erythrocyte distribution width (RBC) [Ratio] 14.1 % 11.6-14.6 [facility] Erythrocyte distribution wid th standard deviationOrdered By: Neymar Cunningham on 07-28-2024 Erythrocyte distribution width (RBC) [Ratio] 50.4 fl High 35.1-43.9 [facility] Ferritinon 07-28-2024 Ferritin [Mass/Vol] 176 ng/mL Normal 22-378 [facility] Comment on above: Performed By: #### L 503.0106, L503.6030, L503.6550, L100.9950 ####[facility] [address] [place], [address] Folate [Moles/volume] in Ser um or PlasmaOrdered By: Neymar Cunningham on 07-28-2024 Folate [Moles/Vol] 23.10 ng/mL 4.60-34.80 [facility] Comment on above: Hemolysis, Results w ill be affected, Requires Recollection. Folates,Serum (Folic Acid)on 07-28-2024 FOLATES,SERUM 23.10 ng/mL Normal 4.60-34.80 [facility] Comment on above: Result Comment: Hemo lysis, Results will be affected, Requires Recollection. Performed By: #### L 506.0200 ####[facility] [address] [place], [place], [address] Glomerular filtration rate ( GFR) estimation/1.73 sq m using serum, plasma, or whole bOrdered By: Neymar Cunningham on 07-28-2024 GFR/1.73 sq M.predicted among non-blacks MDRD (S/P/Bld) [Vol rate/Area] 63 mL/min/{1.73_m2} >60 [facility] Comment on above: mL/min/1.73m2 CKD-EP I Creatinine Equation (2020) HH, Hemoglobin AND Hematocri ton 07-28-2024 HCT Normal 37-47 [facility] Comment on above: Result Comment: Canc elled via OM: Order cancelled - Patient discharged Performed By: #### L 100.0600 ####[facility] [address] [place], [address] HGB Normal 12.0-15.0 [facility] Comment on above: Result Comment: Canc elled via OM: Order cancelled - Patient discharged Performed By: #### L 100.0600 ####[facility] [address] [place], [address] HCT Normal 37-47 [facility] Comment on above: Result Comment: DANIEL ENT DISCHARGED Performed By: #### L 100.0600 ####[facility] [address] [place], [address] HGB Normal 12.0-15.0 [facility] Comment on above: Result Comment: DANIEL ENT DISCHARGED Performed By: #### L 100.0600 ####[facility] [address] [place], [address] Hematocrit Auto (Bld) [Volum e fraction]Ordered By: Neymar Cunningham on 07-28-2024 Hematocrit (Bld) [Volume fraction] 22.1 % Low 37-47 [facility] Hemoglobin measurementOrdere d By: Neymar Cunningham on 07-28-2024 Hemoglobin (Bld) [Mass/Vol] 7.3 g/dL Low 12.0-15.0 [facility] Immature granulocytes/100 WB C Auto (Bld)Ordered By: Neymar Cunningham on 07-28-2024 Immature granulocytes/100 WBC (Bld) 0.100 % 0.0-0.9 [facility] Comment on above: IG% - Immature Granu locytes (promyelocytes, myelocytes and metamyelocytes) > 1% indicates that a LEFT SHIFT is Present. Iron measurement (mass/mass) Ordered By: Neymar Cunningham on 07-28-2024 Iron (Unsp spec) [Mass/Mass] 38 ug/dL Low 50-170 [facility] Iron+Iron Binding Capacityon 07-28-2024 TIBC 175 ug/dL Low 250-450 [facility] Comment on above: Performed By: #### L 503.0106, L503.6030, L503.6550, L100.9950 ####[facility] [address] [place], [address] MCV (mean corpuscular volume ) determinationOrdered By: Neymar Cunningham on 07-28-2024 MCV (RBC) [Entitic vol] 98.7 fL 81-99 [facility] Mean corpuscular hemoglobin (MCH) determinationOrdered By: Neymar Cunningham on 07-28-2024 MCH (RBC) [Entitic mass] 32.6 pg High 27.0-32.0 [facility] Mean corpuscular hemoglobin concentration (MCHC) determinationOrdered By: Neymar Cunningham on 07-28-2024 MCHC (RBC) [Mass/Vol] 33.0 g/dL 32-36 [facility] Mean platelet volume determi nationOrdered By: Neymar Cunningham on 07-28-2024 Platelet mean volume (Bld) [Entitic vol] 9.4 fL 6.2-12.0 [facility] Monocyte percentageOrdered B y: Neymar Cunningham on 07-28-2024 Monocytes/100 WBC (Bld) 5.8 % 0-10 [facility] Neutrophil percentageOrdered By: Neymar Cunningham on 07-28-2024 Neutrophils/100 WBC (Bld) 65.7 % 47-70 [facility] No Panel InformationOrdered By: Neymar Cunningham on 07-28-2024 Unsaturated Iron Binding Capacity 137 ug/dL Low 228-428 [facility] Nucleated red blood cell per centageOrdered By: Neymar Cunningham on 07-28-2024 Nucleated RBC/100 WBC (Bld) [Ratio] 0 % 0-5 [facility] Platelet countOrdered By: Angel Cunningham on 07-28-2024 Platelets (Bld) [#/Vol] 135 10*3/uL Low 150-450 [facility] Potassium measurement (mass/ volume)Ordered By: Neymar Cunningham on 07-28-2024 Potassium (Unsp spec) [Mass/Vol] 4.2 mmol/L 3.3-5.1 [facility] RBC Auto (Bld) [#/Vol]Ordere d By: Neymar Cunningham on 07-28-2024 RBC (Bld) [#/Vol] 2.24 10*6/uL Low 4.2-5.4 [facility] Retic Panelon 07-28-2024 IM RET FRACTION 16.80 High 3.00-15.90 [facility] Comment on above: Performed By: #### L 503.0106, L503.6030, L503.6550, L100.9950 ####[facility] [address] [place], [address] RET-HE 34.0 pg Normal 30-35 [facility] Comment on above: Performed By: #### L 503.0106, L503.6030, L503.6550, L100.9950 ####[facility] [address] [place], [address] Retic Count 2.42 High 0.5-1.5 [facility] Comment on above: Performed By: #### L 503.0106, L503.6030, L503.6550, L100.9950 ####[facility] [address] [place], [address] Reticulocyte hemoglobin equi valent (RET-He) measurementOrdered By: Neymar Cunningham on 07-28-2024 Hemoglobin (Reticulocytes) [Entitic mass] 34.0 pg 30-35 [facility] Reticulocytes Auto (Bld) [#/ Vol]Ordered By: Neymar Cunningham on 07-28-2024 Reticulocytes/100 RBC (Bld) 2.42 % High 0.5-1.5 [facility] Serum creatinine measurement (mass/volume)Ordered By: Neymar Cunningham on 07-28-2024 Creatinine [Mass/Vol] 0.88 mg/dL 0.70-1.20 [facility] Serum glucose measurement (m ass/volume)Ordered By: Neymar Cunningham on 07-28-2024 Glucose [Mass/Vol] 98 mg/dL 70-99 [facility] Serum or plasma calcium светлана urement (mass/volume)Ordered By: Neymar Cunningham on 07-28-2024 Calcium [Mass/Vol] 8.8 mg/dL 7.6-11.0 [facility] Serum or plasma ferritin amria d surement (mass/volume)Ordered By: Neymar Cunningham on 07-28-2024 Ferritin [Mass/Vol] 176 ng/mL 22-378 [facility] Serum or plasma iron saturat ion measurement (mass fraction)Ordered By: Neymar Cunningham on 07-28-2024 Iron saturation [Mass fraction] 22.0 % 13-59 [facility] Comment on above: Previous reported re sult: 22.0 %Edited by: BRANDEN on 07/28/24:1516 Serum or plasma urea nitroge n measurement (mass/volume)Ordered By: Neymar Cunningham on 07-28-2024 Urea nitrogen [Mass/Vol] 17 mg/dL -19 [facility] Sodium levelOrdered By: Olive Cunningham on 07-28-2024 Sodium [Moles/Vol] 137 mmol/L 133-145 [facility] Vitamin B12on 07-28-2024 Cobalamin (Vitamin B12) [Mass/Vol] 867 pg/mL Normal 180-914 [facility] Comment on above: Performed By: #### L 503.0106, L503.6030, L503.6550, L100.9950 ####[facility] [address] [place], [place], [address] Vitamin B12 ser/plasOrdered By: Neymar Cunningham on 07-28-2024 Cobalamin (Vitamin B12) [Mass/Vol] 867 pg/mL 180-914 [facility] White blood cell (WBC) count Ordered By: Neymar Cunningham on 07-28-2024 WBC (Bld) [#/Vol] 8.1 10*3/uL 4.4-11.0 [facility] Basic Metabolic Profile (BMP )on 07-27-2024 BUN/CRE 16.5 RATIO Normal 10-20 [facility] Comment on above: Performed By: #### L 500.2500, L100.0100 ####[facility] [address] [place], [address] Calcium [Mass/Vol] 8.8 mg/dL Normal 7.6-11.0 [facility] Comment on above: Performed By: #### L 500.2500, L100.0100 ####[facility] [address] [place], [address] Chloride [Moles/Vol] 99 mmol/L Normal 98-108 [facility] Comment on above: Performed By: #### L 500.2500, L100.0100 ####[facility] [address] [place], [address] CO2 [Moles/Vol] 27.0 mmol/L Normal 21.0-32.0 [facility] Comment on above: Performed By: #### L 500.2500, L100.0100 ####[facility] [address] [place], [address] Creatinine [Mass/Vol] 0.79 mg/dL Normal 0.70-1.20 [facility] Comment on above: Performed By: #### L 500.2500, L100.0100 ####[facility] [address] [place], [address] ECRCL 34.91 ml/min Low 50-250 [facility] Comment on above: Performed By: #### L 500.2500, L100.0100 ####[facility] [address] [place], [address] GAP 9 Normal 5-15 [facility] Comment on above: Performed By: #### L 500.2500, L100.0100 ####[facility] [address] [place], [address] GFR/1.73 sq M.predicted among non-blacks MDRD (S/P/Bld) [Vol rate/Area] 72 mL/min/{1.73_m2} Normal >60 [facility] Comment on above: Result Comment: mL/m in/1.73m2 CKD-EPI Creatinine Equation (2020) Performed By: #### L 500.2500, L100.0100 ####[facility] [address] [place], [address] Glucose [Mass/Vol] 140 mg/dL High 70-99 [facility] Comment on above: Performed By: #### L 500.2500, L100.0100 ####[facility] [address] [place], [address] Potassium [Moles/Vol] 4.6 mmol/L Normal 3.3-5.1 [facility] Comment on above: Performed By: #### L 500.2500, L100.0100 ####[facility] [address] [place], [address] Sodium [Moles/Vol] 135 mmol/L Normal 133-145 [facility] Comment on above: Performed By: #### L 500.2500, L100.0100 ####[facility] [address] [place], [address] Urea nitrogen [Mass/Vol] 13 mg/dL Normal 4-19 [facility] Comment on above: Performed By: #### L 500.2500, L100.0100 ####[facility] [address] [place], [address] CBC W/Diff, Automatedon 07-10 Absolute Lymph 0.91 X10 3/uL Normal 0.83-4.51 [facility] Comment on above: Performed By: #### L 500.2500, L100.0100 ####[facility] [address] [place], [address] Absolute Neut 9.4 X10 3/uL High 2.0-7.7 [facility] Comment on above: Performed By: #### L 500.2500, L100.0100 ####[facility] [address] [place], [address] Basophils/100 WBC (Bld) 0.1 % Normal 0-1 [facility] Comment on above: Performed By: #### L 500.2500, L100.0100 ####[facility] [address] [place], [address] Eosinophils/100 WBC (Bld) 0.0 % Normal 0-5 [facility] Comment on above: Performed By: #### L 500.2500, L100.0100 ####[facility] [address] [place], [address] Erythrocyte distribution width (RBC) [Ratio] 14.2 % Normal 11.6-14.6 [facility] Comment on above: Performed By: #### L 500.2500, L100.0100 ####[facility] [address] [place], [address] Hematocrit (Bld) [Volume fraction] 27.0 % Low 37-47 [facility] Comment on above: Performed By: #### L 500.2500, L100.0100 ####[facility] [address] [place], [address] Hemoglobin (Bld) [Mass/Vol] 9.0 g/dL Low 12.0-15.0 [facility] Comment on above: Performed By: #### L 500.2500, L100.0100 ####[facility] [address] [place], [address] IG% 0.400 Normal 0.0-0.9 [facility] Comment on above: Result Comment: IG% - Immature Granulocytes (promyelocytes, myelocytes andmetamyelocytes) > 1% indicates that a LEFT SHIFT is Present. Performed By: #### L 500.2500, L100.0100 ####[facility] [address] [place], [address] Lymphocytes/100 WBC (Bld) 8.5 % Low 19-41 [facility] Comment on above: Performed By: #### L 500.2500, L100.0100 ####[facility] [address] [place], [address] MCH (RBC) [Entitic mass] 33.0 pg High 27.0-32.0 [facility] Comment on above: Performed By: #### L 500.2500, L100.0100 ####[facility] [address] [place], [address] MCHC (RBC) [Mass/Vol] 33.3 g/dL Normal 32-36 [facility] Comment on above: Performed By: #### L 500.2500, L100.0100 ####[facility] [address] [place], [address] MCV (RBC) [Entitic vol] 98.9 fL Normal 81-99 [facility] Comment on above: Performed By: #### L 500.2500, L100.0100 ####[facility] [address] [place], [address] Monocytes/100 WBC (Bld) 2.9 % Normal 0-10 [facility] Comment on above: Performed By: #### L 500.2500, L100.0100 ####[facility] [address] [place], [address] Neutrophils/100 WBC (Bld) 88.1 % High 47-70 [facility] Comment on above: Performed By: #### L 500.2500, L100.0100 ####[facility] [address] [place], [address] Nucleated RBC (Bld) [#/Vol] 0 10*3/uL Normal 0-5 [facility] Comment on above: Performed By: #### L 500.2500, L100.0100 ####[facility] [address] [place], [address] Platelet mean volume (Bld) [Entitic vol] 9.3 fL Normal 6.2-12.0 [facility] Comment on above: Performed By: #### L 500.2500, L100.0100 ####[facility] [address] [place], [address] Platelets (Bld) [#/Vol] 152 10*3/uL Normal 150-450 [facility] Comment on above: Performed By: #### L 500.2500, L100.0100 ####[facility] [address] [place], [address] RBC (Bld) [#/Vol] 2.73 10*6/uL Low 4.2-5.4 [facility] Comment on above: Performed By: #### L 500.2500, L100.0100 ####[facility] [address] [place], [address] RDW SD 51.3 fl High 35.1-43.9 [facility] Comment on above: Performed By: #### L 500.2500, L100.0100 ####[facility] [address] [place], [address] WBC (Bld) [#/Vol] 10.7 10*3/uL Normal 4.4-11.0 [facility] Comment on above: Performed By: #### L 500.2500, L100.0100 ####[facility] [address] [place], [address] Basic Metabolic Profile (BMP )on 07-26-2024 BUN/CRE 12.8 RATIO Normal 10-20 [facility] Comment on above: Performed By: #### L 500.2500, L100.0500 ####[facility] [address] [place], [address] Calcium [Mass/Vol] 8.9 mg/dL Normal 7.6-11.0 [facility] Comment on above: Performed By: #### L 500.2500, L100.0500 ####[facility] [address] [place], [address] Chloride [Moles/Vol] 99 mmol/L Normal 98-108 [facility] Comment on above: Performed By: #### L 500.2500, L100.0500 ####[facility] [address] [place], [address] CO2 [Moles/Vol] 28.3 mmol/L Normal 21.0-32.0 [facility] Comment on above: Performed By: #### L 500.2500, L100.0500 ####[facility] [address] [place], [address] Creatinine [Mass/Vol] 0.90 mg/dL Normal 0.70-1.20 [facility] Comment on above: Performed By: #### L 500.2500, L100.0500 ####[facility] [address] [place], [address] ECRCL 31.04 ml/min Low 50-250 [facility] Comment on above: Performed By: #### L 500.2500, L100.0500 ####[facility] [address] [place], [address] GAP 8 Normal 5-15 [facility] Comment on above: Performed By: #### L 500.2500, L100.0500 ####[facility] [address] [place], [address] GFR/1.73 sq M.predicted among non-blacks MDRD (S/P/Bld) [Vol rate/Area] 61 mL/min/{1.73_m2} Normal >60 [facility] Comment on above: Result Comment: mL/m in/1.73m2 CKD-EPI Creatinine Equation (2020) Performed By: #### L 500.2500, L100.0500 ####[facility] [address] [place], [address] Glucose [Mass/Vol] 151 mg/dL High 70-99 [facility] Comment on above: Performed By: #### L 500.2500, L100.0500 ####[facility] [address] [place], [address] Potassium [Moles/Vol] 4.4 mmol/L Normal 3.3-5.1 [facility] Comment on above: Performed By: #### L 500.2500, L100.0500 ####[facility] [address] [place], [address] Sodium [Moles/Vol] 135 mmol/L Normal 133-145 [facility] Comment on above: Performed By: #### L 500.2500, L100.0500 ####[facility] [address] [place], [address] Urea nitrogen [Mass/Vol] 12 mg/dL Normal 4-19 [facility] Comment on above: Performed By: #### L 500.2500, L100.0500 ####[facility] [address] [place], [address] CBC-Complete Blood Cnt No Di ffon 07-26-2024 Erythrocyte distribution width (RBC) [Ratio] 14.1 % Normal 11.6-14.6 [facility] Comment on above: Performed By: #### L 500.2500, L100.0500 ####[facility] [address] [place], [address] Hematocrit (Bld) [Volume fraction] 29.0 % Low 37-47 [facility] Comment on above: Performed By: #### L 500.2500, L100.0500 ####[facility] [address] [place], [address] Hemoglobin (Bld) [Mass/Vol] 10.0 g/dL Low 12.0-15.0 [facility] Comment on above: Performed By: #### L 500.2500, L100.0500 ####[facility] [address] [place], [address] MCH (RBC) [Entitic mass] 33.2 pg High 27.0-32.0 [facility] Comment on above: Performed By: #### L 500.2500, L100.0500 ####[facility] [address] [place], [address] MCHC (RBC) [Mass/Vol] 34.5 g/dL Normal 32-36 [facility] Comment on above: Performed By: #### L 500.2500, L100.0500 ####[facility] [address] [place], [address] MCV (RBC) [Entitic vol] 96.3 fL Normal 81-99 [facility] Comment on above: Performed By: #### L 500.2500, L100.0500 ####[facility] [address] [place], [address] Platelet mean volume (Bld) [Entitic vol] 8.9 fL Normal 6.2-12.0 [facility] Comment on above: Performed By: #### L 500.2500, L100.0500 ####[facility] [address] [place], [address] Platelets (Bld) [#/Vol] 171 10*3/uL Normal 150-450 [facility] Comment on above: Performed By: #### L 500.2500, L100.0500 ####[facility] [address] [place], [address] RBC (Bld) [#/Vol] 3.01 10*6/uL Low 4.2-5.4 [facility] Comment on above: Performed By: #### L 500.2500, L100.0500 ####[facility] [address] [place], [address] RDW SD 49.8 fl High 35.1-43.9 [facility] Comment on above: Performed By: #### L 500.2500, L100.0500 ####[facility] [address] [place], [address] WBC (Bld) [#/Vol] 8.9 10*3/uL Normal 4.4-11.0 [facility] Comment on above: Performed By: #### L 500.2500, L100.0500 ####[facility] [address] [place], [address] Echocardiogram study reportO rdered By: Kaden Corcoran on 07-26-2024 Study report [facility] [address] [place] [address] Echo Complete 07/26/24 0824 MR#: [id number] Acct: [id number] Name: KATHERINE JUDGE Rep #:[id number] : 1935 89 From: Kaden Herrera Attending Dr: Dr. Neymar Cunningham MD Status: ADM IN Ordering Dr: Hayden Diaz DO Da te: 07/25/24 [place] [facility] [place] Sex: F C Admitted: 07/25/24 Reason For [...] Date Dictated: 07/26/24823 Date Transcribed: 07/26/24 100 Shaper Operator: Signed [facility] Work Phone: HH, Hemoglobin AND Hematocri ton 07-26-2024 Hematocrit (Bld) [Volume fraction] 29.3 % Low 37-47 [facility] Comment on above: Performed By: #### L 100.0600 ####[facility] [address] [place], [place], [address] Hemoglobin (Bld) [Mass/Vol] 9.7 g/dL Low 12.0-15.0 [facility] Comment on above: Performed By: #### L 100.0600 ####[facility] [address] [place], [address] Hip Min 2 Views (Portable)on 07-26-2024 Hip Min 2 Views (Portable) Normal [facility] L499.0042on 07-26-2024 Trop T High Sen 27 ng/L High <=14 [facility] Comment on above: Performed By: #### L 499.0042 ####[facility] [address] [place], [place], [address] L499.0043on 07-26-2024 Trop T High Sen 25 ng/L High <=14 [facility] Comment on above: Performed By: #### L 499.0043 ####[facility] [address] [place], [place], [address] MR/POSTOP.ANEon 07-26-2024 MR/POSTOP.ANE Normal [facility] MR/[id number] 07-26-2024 MR/POSTOPAN2 Normal [facility] Operative Reporton Operative Report Normal [facility] TSH DL <= 0.005 mIU/L QnOrde red By: Rocky Sidhu on 07-26-2024 TSH Qn 2.060 uIU/mL 0.300-4.20 0 [facility] Thyroid Stim Hormone (TSH)on 07-26-2024 TSH 2.060 uIU/mL Normal 0.300-4.20 0 [facility] Comment on above: Performed By: #### L 501.9520 ####[facility] [address] [place], [place], [address] Troponin T.cardiac [Mass/vol ume] in Serum or Plasma by High sensitivity methodOrdered By: Hayden Diaz on 07-26-2024 Troponin T.cardiac High sensitivity method [Mass/Vol] 25 ng/L High <14 [facility] Troponin T.cardiac High sensitivity method [Mass/Vol] 27 ng/L High <14 [facility] Type AND Screenon 07-26-2024 Ab SCREEN GEL TNP Normal [facility] Comment on above: Order Comment: S Performed By: #### B , [id number] ####[facility] [address] [place], [address] 12 Lead EKGon 07-25-2024 12 Lead EKG Normal [facility] Absolute lymphocyte countOrd ered By: Jacobo Moya on 07-25-2024 Lymphocytes Auto (Unsp spec) [#/Vol] 1.75 10*3/uL 0.83-4.51 [facility] Absolute neutrophil countOrd ered By: Jacobo Moya on 07-25-2024 Neutrophils (Bld) [#/Vol] 5.3 10*3/uL 2.0-7.7 [facility] Activated partial thrombopla stin time (aPTT) in platelet poor plasma by coagulation aOrdered By: Jacobo Moya on 07-25-2024 aPTT Coag (PPP) [Time] 27.1 s 24.1-36.2 [facility] Anion gap in Serum or Plasma Ordered By: Jacobo Moya on 07-25-2024 Anion gap [Moles/Vol] 9 mmol/L - [facility] Automated lymphocyte count a s percentage of total leukocytesOrdered By: Jacobo Moya on 07-25-2024 Lymphocytes/100 WBC Auto (Unsp spec) 22.9 % - [facility] BUN/creatinine ratioOrdered By: Jacobo Moya on 07-25-2024 Urea nitrogen/Creatinine [Mass ratio] 13.5 mg/mg - [facility] Basic Metabolic Profile (BMP )on 07-25-2024 BUN/CRE 13.5 RATIO Normal 11-28 [facility] Comment on above: Performed By: #### L 300.4310, L500.2500, L300.3900, L100.0100 ####[facility] [address] [place], [address] Calcium [Mass/Vol] 8.8 mg/dL Normal 7.6-11.0 [facility] Comment on above: Performed By: #### L 300.4310, L500.2500, L300.3900, L100.0100 ####[facility] [address] [place], [address] Chloride [Moles/Vol] 98 mmol/L Normal 98-108 [facility] Comment on above: Performed By: #### L 300.4310, L500.2500, L300.3900, L100.0100 ####[facility] [address] [place], [address] CO2 [Moles/Vol] 26.5 mmol/L Normal 21.0-32.0 [facility] Comment on above: Performed By: #### L 300.4310, L500.2500, L300.3900, L100.0100 ####[facility] [address] [place], [address] Creatinine [Mass/Vol] 0.92 mg/dL Normal 0.70-1.20 [facility] Comment on above: Performed By: #### L 300.4310, L500.2500, L300.3900, L100.0100 ####[facility] [address] [place], [address] GAP 9 Normal 5-15 [facility] Comment on above: Performed By: #### L 300.4310, L500.2500, L300.3900, L100.0100 ####[facility] [address] [place], [address] GFR/1.73 sq M.predicted among non-blacks MDRD (S/P/Bld) [Vol rate/Area] 60 mL/min/{1.73_m2} Normal >60 [facility] Comment on above: Result Comment: mL/m in/1.73m2 CKD-EPI Creatinine Equation (2020) Performed By: #### L 300.4310, L500.2500, L300.3900, L100.0100 ####[facility] [address] [place], [address] Glucose [Mass/Vol] 126 mg/dL High 70-99 [facility] Comment on above: Performed By: #### L 300.4310, L500.2500, L300.3900, L100.0100 ####[facility] [address] [place], [address] Potassium [Moles/Vol] 5.0 mmol/L Normal 3.3-5.1 [facility] Comment on above: Result Comment: Hemo lysis present, Results??could be affected.?? Performed By: #### L 300.4310, L500.2500, L300.3900, L100.0100 ####[facility] [address] [place], [address] Sodium [Moles/Vol] 134 mmol/L Normal 133-145 [facility] Comment on above: Performed By: #### L 300.4310, L500.2500, L300.3900, L100.0100 ####[facility] [address] [place], [address] Urea nitrogen [Mass/Vol] 13 mg/dL Normal 4-19 [facility] Comment on above: Performed By: #### L 300.4310, L500.2500, L300.3900, L100.0100 ####[facility] [address] [place], [address] Basophil percentageOrdered B y: Jacobo Moya on 07-25-2024 Basophils/100 WBC (Bld) 0.4 % 0-1 [facility] Bilirubin Test strip Ql (U)O rdered By: Jacobo Moya on 07-25-2024 Bilirubin Ql (U) Negative Negative [facility] CBC W/Diff, Automatedon 07-10 Absolute Lymph 1.75 X10 3/uL Normal 0.83-4.51 [facility] Comment on above: Performed By: #### L 300.4310, L500.2500, L300.3900, L100.0100 ####[facility] [address] [place], [address] Absolute Neut 5.3 X10 3/uL Normal 2.0-7.7 [facility] Comment on above: Performed By: #### L 300.4310, L500.2500, L300.3900, L100.0100 ####[facility] [address] [place], [address] Basophils/100 WBC (Bld) 0.4 % Normal 0-1 [facility] Comment on above: Performed By: #### L 300.4310, L500.2500, L300.3900, L100.0100 ####[facility] [address] [place], [address] Eosinophils/100 WBC (Bld) 0.9 % Normal 0-5 [facility] Comment on above: Performed By: #### L 300.4310, L500.2500, L300.3900, L100.0100 ####[facility] [address] [place], [address] Erythrocyte distribution width (RBC) [Ratio] 14.1 % Normal 11.6-14.6 [facility] Comment on above: Performed By: #### L 300.4310, L500.2500, L300.3900, L100.0100 ####[facility] [address] [place], [address] Hematocrit (Bld) [Volume fraction] 31.6 % Low 37-47 [facility] Comment on above: Performed By: #### L 300.4310, L500.2500, L300.3900, L100.0100 ####[facility] [address] [place], [address] Hemoglobin (Bld) [Mass/Vol] 10.7 g/dL Low 12.0-15.0 [facility] Comment on above: Performed By: #### L 300.4310, L500.2500, L300.3900, L100.0100 ####[facility] [address] [place], [address] IG% 0.400 Normal 0.0-0.9 [facility] Comment on above: Result Comment: IG% - Immature Granulocytes (promyelocytes, myelocytes andmetamyelocytes) > 1% indicates that a LEFT SHIFT is Present. Performed By: #### L 300.4310, L500.2500, L300.3900, L100.0100 ####[facility] [address] [place], [address] Lymphocytes/100 WBC (Bld) 22.9 % Normal 19-41 [facility] Comment on above: Performed By: #### L 300.4310, L500.2500, L300.3900, L100.0100 ####[facility] [address] [place], [address] MCH (RBC) [Entitic mass] 32.6 pg High 27.0-32.0 [facility] Comment on above: Performed By: #### L 300.4310, L500.2500, L300.3900, L100.0100 ####[facility] [address] [place], [address] MCHC (RBC) [Mass/Vol] 33.9 g/dL Normal 32-36 [facility] Comment on above: Performed By: #### L 300.4310, L500.2500, L300.3900, L100.0100 ####[facility] [id number] [place], [address] MCV (RBC) [Entitic vol] 96.3 fL Normal 81-99 [facility] Comment on above: Performed By: #### L 300.4310, L500.2500, L300.3900, L100.0100 ####[facility] [id number] [place], [address] Monocytes/100 WBC (Bld) 6.2 % Normal 0-10 [facility] [facility] Comment on above: Performed By: #### L 300.4310, L500.2500, L300.3900, L100.0100 ####[facility] [address] [place], [address] Neutrophils/100 WBC (Bld) 69.2 % Normal 47-70 [facility] Comment on above: Performed By: #### L 300.4310, L500.2500, L300.3900, L100.0100 ####[facility] [address] [place], [address] Nucleated RBC (Bld) [#/Vol] 0 10*3/uL Normal 0-5 [facility] Comment on above: Performed By: #### L 300.4310, L500.2500, L300.3900, L100.0100 ####[facility] [address] [place], [address] Platelet mean volume (Bld) [Entitic vol] 9.1 fL Normal 6.2-12.0 [facility] Comment on above: Performed By: #### L 300.4310, L500.2500, L300.3900, L100.0100 ####[facility] [address] [place], [address] Platelets (Bld) [#/Vol] 181 10*3/uL Normal 150-450 [facility] Comment on above: Performed By: #### L 300.4310, L500.2500, L300.3900, L100.0100 ####[facility] [address] [place], [address] RBC (Bld) [#/Vol] 3.28 10*6/uL Low 4.2-5.4 [facility] Comment on above: Performed By: #### L 300.4310, L500.2500, L300.3900, L100.0100 ####[facility] [address] [place], [address] RDW SD 49.4 fl High 35.1-43.9 [facility] Comment on above: Performed By: #### L 300.4310, L500.2500, L300.3900, L100.0100 ####[facility] [address] [place], [address] WBC (Bld) [#/Vol] 7.6 10*3/uL Normal 4.4-11.0 [facility] Comment on above: Performed By: #### L 300.4310, L500.2500, L300.3900, L100.0100 ####[facility] [address] [place], [address] Carbon dioxide, total [Moles /volume] in Central venous bloodOrdered By: Jacobo Moya on 07-25-2024 CO2 [Moles/Vol] 26.5 mmol/L 21.0-32.0 [facility] Chest 1 View (Portable)on Chest 1 View (Portable) Normal [facility] Chloride assayOrdered By: Timi Moya on 07-25-2024 Chloride [Moles/Vol] 98 mmol/L 98-108 [facility] Echo Completeon 07-25-2024 Echo Complete Normal [facility] Emergency Department Summary on 07-25-2024 Emergency Department Summary Normal [facility] Eosinophil percentageOrdered By: Jacobo Moya on 07-25-2024 Eosinophils/100 WBC (Bld) 0.9 % 0-5 [facility] Erythrocyte distribution wid th ratioOrdered By: Jacobo Moya on 07-25-2024 Erythrocyte distribution width (RBC) [Ratio] 14.1 % 11.6-14.6 [facility] Erythrocyte distribution wid th standard deviationOrdered By: Jacobo Moya on 07-25-2024 Erythrocyte distribution width (RBC) [Ratio] 49.4 fl High 35.1-43.9 [facility] Femur Min 2 Viewson 07-26-19 25 Femur Min 2 Views Normal [facility] Glomerular filtration rate ( GFR) estimation/1.73 sq m using serum, plasma, or whole bOrdered By: Jacobo Moya on 07-25-2024 GFR/1.73 sq M.predicted among non-blacks MDRD (S/P/Bld) [Vol rate/Area] 60 mL/min/{1.73_m2} >60 [facility] Comment on above: mL/min/1.73m2 CKD-EP I Creatinine Equation (2020) H AND P Exam - Hospitaliston 07-25-2024 H&P Exam - Hospitalist Normal [facility] HIP, UNI W/ Pelvis 2-3 Views on 07-25-2024 HIP, UNI W/ Pelvis 2-3 Views Normal [facility] Hematocrit Auto (Bld) [Volum e fraction]Ordered By: Jacobo Moya on 07-25-2024 Hematocrit (Bld) [Volume fraction] 31.6 % Low 37-47 [facility] Hemoglobin measurementOrdere d By: Jacobo Moya on 07-25-2024 Hemoglobin (Bld) [Mass/Vol] 10.7 g/dL Low 12.0-15.0 [facility] Immature granulocytes/100 WB C Auto (Bld)Ordered By: Jacobo Moya on 07-25-2024 Immature granulocytes/100 WBC (Bld) 0.400 % 0.0-0.9 [facility] Comment on above: IG% - Immature Granu locytes (promyelocytes, myelocytes and metamyelocytes) > 1% indicates that a LEFT SHIFT is Present. International normalized rat io (INR) calculationOrdered By: Jacobo Moya on 07-25-2024 INR Coag (Bld) [Relative time] 1.0 {INR} [facility] Ketones Test strip Ql (U)Ord ered By: Jacobo Moya on 07-25-2024 Ketones Ql (U) Negative Negative [facility] L501.4021on 07-25-2024 Trop T High Sen 24 ng/L High <=14 [facility] Comment on above: Performed By: #### L 501.4021 ####[facility] [address] [place], [place], [address] L503.7505on 07-25-2024 Natriuretic peptide B (Bld) [Mass/Vol] 538 pg/mL Normal <=1800 [facility] Comment on above: Result Comment: Hear t Failure Unlikely: < 300 pg/mLHeart Failure Likely< 50 Years: > 450 pg/mL50-75 Years: > 900 pg/mL>75 Years: > 1800 pg/mL Performed By: #### L 503.7505 ####[facility] [address] [place], [place], [address] MCV (mean corpuscular volume ) determinationOrdered By: Jacobo Moya on 07-25-2024 MCV (RBC) [Entitic vol] 96.3 fL 81-99 [facility] Mean corpuscular hemoglobin (MCH) determinationOrdered By: Jacobo Moya on 07-25-2024 MCH (RBC) [Entitic mass] 32.6 pg High 27.0-32.0 [facility] Mean corpuscular hemoglobin concentration (MCHC) determinationOrdered By: Jacobo Moya on 07-25-2024 MCHC (RBC) [Mass/Vol] 33.9 g/dL 32-36 [facility] Mean platelet volume determi nationOrdered By: Jacobo Moya on 07-25-2024 Platelet mean volume (Bld) [Entitic vol] 9.1 fL 6.2-12.0 [facility] Microscopic analysis of urin e for red blood cells (RBC)Ordered By: Jacobo Moya on 07-25-2024 Microscopic analysis of urine for red blood cells (RBC) 0-5 SEEN /hpf 0-5 [facility] Monocyte percentageOrdered B y: Jacobo Moya on 07-25-2024 Monocytes/100 WBC (Bld) 6.2 % 0-10 [facility] Mucus LM Ql (Urine sed)Order ed By: Jacobo Moya on 07-25-2024 Mucus Ql (Urine sed) 0 SEEN /hpf [facility] Natriuretic peptide.B prohor ana N-Terminal [Mass/volume] in Serum or PlasmaOrdered By: Hayden Diaz on 07-25-2024 Natriuretic peptide.B prohormone N-Terminal [Mass/Vol] 538 pg/mL <1800 [facility] Comment on above: Heart Failure Unlike ly: < 300 pg/mLHeart Failure Likely< 50 Years: > 450 pg/mL50-75 Years: > 900 pg/mL>75 Years: > 1800 pg/mL Neutrophil percentageOrdered By: Jacobo Moya on 07-25-2024 Neutrophils/100 WBC (Bld) 69.2 % 47-70 [facility] Nitrite Test strip Ql (U)Ord ered By: Jacobo Moya on 07-25-2024 Nitrite Ql (U) Negative Negative [facility] Nucleated red blood cell per centageOrdered By: Jacobo Moya on 07-25-2024 Nucleated RBC/100 WBC (Bld) [Ratio] 0 % 0-5 [facility] Partial Thromboplast Timeon 07-25-2024 aPTT Coag (Bld) [Time] 27.1 s Normal 24.1-36.2 [facility] Comment on above: Performed By: #### L 300.4310, L500.2500, L300.3900, L100.0100 ####[facility] [address] [place], [place], [id number] Platelet countOrdered By: Timi Moya on 07-25-2024 Platelets (Bld) [#/Vol] 181 10*3/uL 150-450 [facility] Potassium measurement (mass/ volume)Ordered By: Jacobo Moya on 07-25-2024 Potassium (Unsp spec) [Mass/Vol] 5.0 mmol/L 3.3-5.1 [facility] Comment on above: Hemolysis present, R esults could be affected. Protein Test strip Ql (U)Ord ered By: Jacobo Moya on 07-25-2024 Protein Ql (U) 30 mg/dl High Negative [facility] Prothrombin Time w/INRon INR Coag (PPP) [Relative time] 1.0 {INR} Normal [facility] Comment on above: Performed By: #### L 300.4310, L500.2500, L300.3900, L100.0100 ####[facility] [address] [place], [address] PT Coag (PPP) [Time] 13.0 s Normal 11.7-14.9 [facility] Comment on above: Performed By: #### L 300.4310, L500.2500, L300.3900, L100.0100 ####[facility] [address] [place], [address] Prothrombin timeOrdered By: Jacobo Moya on 07-25-2024 PT Coag (PPP) [Time] 13.0 s 11.7-14.9 [facility] RBC Auto (Bld) [#/Vol]Ordere d By: Jacobo Moya on 07-25-2024 RBC (Bld) [#/Vol] 3.28 10*6/uL Low 4.2-5.4 [facility] Serum creatinine measurement (mass/volume)Ordered By: Jacobo Moya on 07-25-2024 Creatinine [Mass/Vol] 0.92 mg/dL 0.70-1.20 [facility] Serum glucose measurement (m ass/volume)Ordered By: Jacobo Moya on 07-25-2024 Glucose [Mass/Vol] 126 mg/dL High 70-99 [facility] Serum or plasma calcium светлана urement (mass/volume)Ordered By: Jacobo Moya on 07-25-2024 Calcium [Mass/Vol] 8.8 mg/dL 7.6-11.0 [facility] Serum or plasma urea nitroge n measurement (mass/volume)Ordered By: Jacobo Moya on 07-25-2024 Urea nitrogen [Mass/Vol] 13 mg/dL 4-19 [facility] Sodium levelOrdered By: Jacobo Moya on 07-25-2024 Sodium [Moles/Vol] 134 mmol/L 133-145 [facility] Squamous epithelial cells de tection in urine sediment by light microscopyOrdered By: Jacobo Moya on 07-25-2024 Epithelial cells.squamous LM Ql (Urine sed) 0-5 SEEN /hpf 5-10 [facility] Transitional cells detection in urine sediment by light microscopyOrdered By: Jacobo Moya on 07-25-2024 Transitional cells LM Ql (Urine sed) 0-5 SEEN /hpf 0-5 [facility] Troponin T.cardiac [Mass/vol ume] in Serum or Plasma by High sensitivity methodOrdered By: Hayden Diaz on 07-25-2024 Troponin T.cardiac High sensitivity method [Mass/Vol] 24 ng/L High <14 [facility] Urinalysis, Completeon 07-25 EPI,SQUAMOUS 0-5 SEEN Normal 5-10 [facility] Comment on above: Order Comment: CLEAN CATCH Performed By: #### L 400.0001 ####[facility] [address] [place] [address] EPI,TRANSITION 0-5 SEEN Normal 0-5 [facility] Comment on above: Order Comment: CLEAN CATCH Performed By: #### L 400.0001 ####[facility] [address] [facility] [address] RBC 0-5 SEEN Normal 0-5 [facility] Comment on above: Order Comment: CLEAN CATCH Performed By: #### L 400.0001 ####[facility] [address] [facility] [address] WBC 0-5 SEEN Normal 0-5 [facility] Comment on above: Order Comment: CLEAN CATCH Performed By: #### L 400.0001 ####[facility] [address] [place], [address] BACTERIA 0 SEEN Normal None Seen [facility] Comment on above: Order Comment: CLEAN CATCH Performed By: #### L 400.0001 ####[facility] [address] [place] [id number] Mucus Ql (Urine sed) [address] [facility] Comment on above: Order Comment: CLEAN CATCH Performed By: #### L 400.0001 ####[facility] [address] [place], [place], [id number] Urine clarityOrdered By: Geovanna Moya on 07-25-2024 Clarity (U) Clear Clear [facility] Urine color determinationOrd ered By: Jacobo Moya on 07-25-2024 Color (U) Straw Yellow [facility] Urine glucose detectionOrder ed By: Jacobo Moya on 07-25-2024 Glucose Ql (U) Normal mg/dl Normal [facility] Urine leukocyte esterase det ection by dipstickOrdered By: Jacobo Moya on 07-25-2024 Leukocyte esterase Test strip Ql (U) Negative Negative [facility] Urine pHOrdered By: Jacobo dunham on 07-25-2024 pH (U) 8.0 [pH] 5.0 - 8.0 [facility] Urine sediment bacteria coun t by microscopy (number/high power field)Ordered By: Jacobo Moya on 07-25-2024 Bacteria LM.HPF (Urine sed) [#/Area] 0 /[HPF] None Seen [facility] Urine specific gravity measu rementOrdered By: Jacobo Moya on 07-25-2024 Specific gravity (U) [Rel density] 1.010 1.002-1.03 0 [facility] Urine urobilinogen measureme ntOrdered By: Jacobo Moya on 07-25-2024 Urobilinogen Ql (U) Normal mg/dl Normal [facility] White blood cell (WBC) count Ordered By: Jacobo Moya on 07-25-2024 WBC (Bld) [#/Vol] 7.6 10*3/uL 4.4-11.0 [facility] White blood cell countOrdere d By: Jacobo Moya on 07-25-2024 White blood cell count 0-5 SEEN /hpf 0-5 [facility] Anion gap in Serum or Plasma Ordered By: Kam Ocampo on 04-14-2024 Anion gap [Moles/Vol] 10 mmol/L 5-15 [facility] BUN/creatinine ratioOrdered By: Kam Ocampo on 04-14-2024 Urea nitrogen/Creatinine [Mass ratio] 12.4 mg/mg 10-20 [facility] Bilirubin, totalOrdered By: Kam Ocampo on 04-14-2024 Bilirubin [Mass/Vol] 0.38 mg/dL 0.00-1.30 [facility] CBC-Complete Blood Cnt No Di ffon 04-14-2024 Erythrocyte distribution width (RBC) [Ratio] 13.7 % Normal 11.6-14.6 [facility] Comment on above: Order Comment: 301.2 Performed By: #### L 501.080 #### [facility] [address] [place], [address] Order Comment: 301.2 Performed By: #### L 500.4050, L100.0500 ####[facility] [address] [place], [address] Hematocrit (Bld) [Volume fraction] 30.3 % Low 37-47 [facility] Comment on above: Order Comment: 301.2 Performed By: #### L 501.080 #### [facility] [address] [place], [address] Order Comment: 301.2 Performed By: #### L 500.4050, L100.0500 ####[facility] [address] [place], [address] Hemoglobin (Bld) [Mass/Vol] 10.2 g/dL Low 12.0-15.0 [facility] Comment on above: Order Comment: 301.2 Performed By: #### L 501.080 #### [facility] [address] [place], [address] Order Comment: 301.2 Performed By: #### L 500.4050, L100.0500 ####[facility] [address] [place], [address] MCH (RBC) [Entitic mass] 32.4 pg High 27.0-32.0 [facility] Comment on above: Order Comment: 301.2 Performed By: #### L 501.080 #### [facility] [address] [place], [address] Order Comment: 301.2 Performed By: #### L 500.4050, L100.0500 ####[facility] [address] [place], [address] MCHC (RBC) [Mass/Vol] 33.7 g/dL Normal 32-36 [facility] Comment on above: Order Comment: 301.2 Performed By: #### L 501.080 #### [facility] [address] [place], [address] Order Comment: 301.2 Performed By: #### L 500.4050, L100.0500 ####[facility] [address] [place], [address] MCV (RBC) [Entitic vol] 96.2 fL Normal 81-99 [facility] Comment on above: Order Comment: 301.2 Performed By: #### L 501.080 #### [facility] [address] [place], [address] Order Comment: 301.2 Performed By: #### L 500.4050, L100.0500 ####[facility] [address] [place], [address] Platelet mean volume (Bld) [Entitic vol] 9.3 fL Normal 6.2-12.0 [facility] Comment on above: Order Comment: 301.2 Performed By: #### L 501.080 #### [facility] [address] [place], [address] Order Comment: 301.2 Performed By: #### L 500.4050, L100.0500 ####[facility] [address] [place], [address] Platelets (Bld) [#/Vol] 170 10*3/uL Normal 150-450 [facility] Comment on above: Order Comment: 301.2 Performed By: #### L 501.080 #### [facility] [address] [place], [address] Order Comment: 301.2 Performed By: #### L 500.4050, L100.0500 ####[facility] [address] [place], [address] RBC (Bld) [#/Vol] 3.15 10*6/uL Low 4.2-5.4 [facility] Comment on above: Order Comment: 301.2 Performed By: #### L 501.080 #### [facility] [address] [place], [address] Order Comment: 301.2 Performed By: #### L 500.4050, L100.0500 ####[facility] [address] [place], [address] RDW SD 48.8 fl High 35.1-43.9 [facility] Comment on above: Order Comment: 301.2 Performed By: #### L 501.080 #### [facility] [address] [place], [address] Order Comment: 301.2 Performed By: #### L 500.4050, L100.0500 ####[facility] [address] [place], [address] WBC (Bld) [#/Vol] 4.5 10*3/uL Normal 4.4-11.0 [facility] Comment on above: Order Comment: 301.2 Performed By: #### L 501.080 #### [facility] [address] [place], [address] Order Comment: 301.2 Performed By: #### L 500.4050, L100.0500 ####[facility] [address] [place], [address] Carbon dioxide, total [Moles /volume] in Central venous bloodOrdered By: Kam Ocampo on 04-14-2024 CO2 [Moles/Vol] 24.5 mmol/L 21.0-32.0 [facility] Chloride assayOrdered By: Dugan on 04-14-2024 Chloride [Moles/Vol] 102 mmol/L 98-108 [facility] Comprehensive Metabolic Prof ilon 04-14-2024 Albumin [Mass/Vol] 3.2 g/dL Low 3.4-4.8 [facility] Comment on above: Order Comment: 301.2 Performed By: #### L 300.3900, L100.0100, L500.2500 #### [facility] [address] [place], [address] Order Comment: 301.2 Performed By: #### L 500.4050, L100.0500 ####[facility] [address] [place], [address] Albumin/Globulin [Mass ratio] 1.2 {ratio} Normal 0.9-2.4 [facility] Comment on above: Order Comment: 301.2 Performed By: #### L 300.3900, L100.0100, L500.2500 #### [facility] [address] [place], [address] Order Comment: 301.2 Performed By: #### L 500.4050, L100.0500 ####[facility] [address] [place], [address] ALK PHOS 53 U/L Normal 35-104 [facility] Comment on above: Order Comment: 301.2 Performed By: #### L 300.3900, L100.0100, L500.2500 #### [facility] [address] [place], [address] Order Comment: 301.2 Performed By: #### L 500.4050, L100.0500 ####[facility] [address] [place], [address] ALT [Catalytic activity/Vol] 14 U/L Normal <=34 [facility] Comment on above: Order Comment: 301.2 Performed By: #### L 300.3900, L100.0100, L500.2500 #### [facility] [address] [place], [address] Order Comment: 301.2 Performed By: #### L 500.4050, L100.0500 ####[facility] [address] [place], [address] AST [Catalytic activity/Vol] 21 U/L Normal <=31 [facility] Comment on above: Order Comment: 301.2 Performed By: #### L 300.3900, L100.0100, L500.2500 #### [facility] [address] [place], [address] Order Comment: 301.2 Performed By: #### L 500.4050, L100.0500 ####[facility] [address] [place], [address] Bilirubin [Mass/Vol] 0.38 mg/dL Normal 0.00-1.30 [facility] Comment on above: Order Comment: 301.2 Performed By: #### L 300.3900, L100.0100, L500.2500 #### [facility] [address] [place], [address] Order Comment: 301.2 Performed By: #### L 500.4050, L100.0500 ####[facility] [address] [place], [address] BUN/CRE 12.4 RATIO Normal 10-20 [facility] Comment on above: Order Comment: 301.2 Performed By: #### L 300.3900, L100.0100, L500.2500 #### [facility] [address] [place], [address] Order Comment: 301.2 Performed By: #### L 500.4050, L100.0500 ####[facility] [address] [place], [address] Calcium [Mass/Vol] 9.0 mg/dL Normal 7.6-11.0 [facility] Comment on above: Order Comment: 301.2 Performed By: #### L 300.3900, L100.0100, L500.2500 #### [facility] [address] [place], [address] Order Comment: 301.2 Performed By: #### L 500.4050, L100.0500 ####[facility] [address] [place], [address] Chloride [Moles/Vol] 102 mmol/L Normal 98-108 [facility] Comment on above: Order Comment: 301.2 Performed By: #### L 300.3900, L100.0100, L500.2500 #### [facility] [address] [place], [address] Order Comment: 301.2 Performed By: #### L 500.4050, L100.0500 ####[facility] [address] [place], [address] CO2 [Moles/Vol] 24.5 mmol/L Normal 21.0-32.0 [facility] Comment on above: Order Comment: 301.2 Performed By: #### L 300.3900, L100.0100, L500.2500 #### [facility] [address] [place], [address] Order Comment: 301.2 Performed By: #### L 500.4050, L100.0500 ####[facility] [address] [place], [address] Creatinine [Mass/Vol] 0.90 mg/dL Normal 0.70-1.20 [facility] Comment on above: Order Comment: 301.2 Performed By: #### L 300.3900, L100.0100, L500.2500 #### [facility] [address] [place], [address] Order Comment: 301.2 Performed By: #### L 500.4050, L100.0500 ####[facility] [address] [place], [address] GAP 10 Normal 5-15 [facility] Comment on above: Order Comment: 301.2 Performed By: #### L 300.3900, L100.0100, L500.2500 #### [facility] [address] [place], [address] Order Comment: 301.2 Performed By: #### L 500.4050, L100.0500 ####[facility] [address] [place], [address] GFR/1.73 sq M.predicted among non-blacks MDRD (S/P/Bld) [Vol rate/Area] 61 mL/min/{1.73_m2} Normal >60 [facility] Comment on above: Order Comment: 301.2 Result Comment: mL/m in/1.73m2 CKD-EPI Creatinine Equation (2020) Performed By: #### L 300.3900, L100.0100, L500.2500 #### [facility] [address] [place], [address] Order Comment: 301.2 Result Comment: mL/m in/1.73m2 CKD-EPI Creatinine Equation (2020) Performed By: #### L 500.4050, L100.0500 ####[facility] [address] [place], [address] Globulin (S) [Mass/Vol] 2.7 g/dL Normal 2.2-4.2 [facility] Comment on above: Order Comment: 301.2 Performed By: #### L 300.3900, L100.0100, L500.2500 #### [facility] [address] [place], [address] Order Comment: 301.2 Performed By: #### L 500.4050, L100.0500 ####[facility] [address] [place], [address] Glucose [Mass/Vol] 80 mg/dL Normal 70-99 [facility] Comment on above: Order Comment: 301.2 Performed By: #### L 300.3900, L100.0100, L500.2500 #### [facility] [address] [place], [address] Order Comment: 301.2 Performed By: #### L 500.4050, L100.0500 ####[facility] [address] [place], [address] Potassium [Moles/Vol] 4.3 mmol/L Normal 3.3-5.1 [facility] Comment on above: Order Comment: 301.2 Performed By: #### L 300.3900, L100.0100, L500.2500 #### [facility] [address] [place], [address] Order Comment: 301.2 Performed By: #### L 500.4050, L100.0500 ####[facility] [address] [place], [address] Sodium [Moles/Vol] 137 mmol/L Normal 133-145 [facility] Comment on above: Order Comment: 301.2 Performed By: #### L 300.3900, L100.0100, L500.2500 #### [facility] [address] [place], [address] Order Comment: 301.2 Performed By: #### L 500.4050, L100.0500 ####[facility] [address] [place], [address] T PROT 5.9 g/dL Normal 5.9-8.4 [facility] [facility] Comment on above: Order Comment: 301.2 Performed By: #### L 300.3900, L100.0100, L500.2500 #### [facility] [address] [place], [address] Order Comment: 301.2 Performed By: #### L 500.4050, L100.0500 ####[facility] [address] [place], [address] Urea nitrogen [Mass/Vol] 11 mg/dL Normal 4-19 [facility] Comment on above: Order Comment: 301.2 Performed By: #### L 300.3900, L100.0100, L500.2500 #### [facility] [address] [place], [address] Order Comment: 301.2 Performed By: #### L 500.4050, L100.0500 ####[facility] [address] [place], [address] Erythrocyte distribution wid th (RBC) [Ratio]Ordered By: Kam Ocampo on 04-14-2024 Erythrocyte distribution width (RBC) [Entitic vol] 48.8 fL High 35.1-43.9 [facility] Erythrocyte distribution wid th ratioOrdered By: Kam Ocampo on 04-14-2024 Erythrocyte distribution width (RBC) [Ratio] 13.7 % 11.6-14.6 [facility] Erythrocyte distribution wid th standard deviationOrdered By: Kam Ocampo on 04-14-2024 Erythrocyte distribution width (RBC) [Ratio] 48.8 fl High 35.1-43.9 [facility] GFR/1.73 sq M.predicted leif g non-blacks MDRD (S/P/Bld) [Vol rate/Area]Ordered By: Kam Ocampo on 04-14-2024 Estimated GFR (MDRD) Non-Af Amer 61 >60 [facility] Comment on above: mL/min/1.73m2 CKD-EP I Creatinine Equation (2020) Glomerular filtration rate ( GFR) estimation/1.73 sq m using serum, plasma, or whole bOrdered By: Kam Ocampo on 04-14-2024 GFR/1.73 sq M.predicted among non-blacks MDRD (S/P/Bld) [Vol rate/Area] 61 mL/min/{1.73_m2} >60 [facility] Comment on above: mL/min/1.73m2 CKD-EP I Creatinine Equation (2020) Hematocrit Auto (Bld) [Volum e fraction]Ordered By: Kam Ocampo on 04-14-2024 Hematocrit (Bld) [Volume fraction] 30.3 % Low 37-47 [facility] Hemoglobin measurementOrdere d By: Kam Ocampo on 04-14-2024 Hemoglobin (Bld) [Mass/Vol] 10.2 g/dL Low 12.0-15.0 [facility] - Chemistry and C hemistry - challengeOrdered By: Kam Ocampo on 04-14-2024 AST [Catalytic activity/Vol] 21 U/L <32 [facility] MCV (mean corpuscular volume ) determinationOrdered By: Kam Ocampo on 04-14-2024 MCV (RBC) [Entitic vol] 96.2 fL 81-99 [facility] Mean corpuscular hemoglobin (MCH) determinationOrdered By: Kam Ocampo on 04-14-2024 MCH (RBC) [Entitic mass] 32.4 pg High 27.0-32.0 [facility] Mean corpuscular hemoglobin concentration (MCHC) determinationOrdered By: Kam Ocampo on 04-14-2024 MCHC (RBC) [Mass/Vol] 33.7 g/dL 32-36 [facility] Mean platelet volume determi nationOrdered By: Kam Ocampo on 04-14-2024 Platelet mean volume (Bld) [Entitic vol] 9.3 fL 6.2-12.0 [facility] Platelet countOrdered By: Dugan on 04-14-2024 Platelets (Bld) [#/Vol] 170 10*3/uL 150-450 [facility] Potassium (Unsp spec) [Mass/ Vol]Ordered By: Kam Ocampo on 04-14-2024 Potassium [Moles/Vol] 4.3 mmol/L 3.3-5.1 [facility] Potassium measurement (mass/ volume)Ordered By: Kam Ocampo on 04-14-2024 Potassium (Unsp spec) [Mass/Vol] 4.3 mmol/L 3.3-5.1 [facility] RBC Auto (Bld) [#/Vol]Ordere d By: Kam Ocampo on 04-14-2024 RBC (Bld) [#/Vol] 3.15 10*6/uL Low 4.2-5.4 [facility] Serum creatinine measurement (mass/volume)Ordered By: Kam Ocampo on 04-14-2024 Creatinine [Mass/Vol] 0.90 mg/dL 0.70-1.20 [facility] Serum globulin measurementOr dered By: Kam Ocampo on 04-14-2024 Globulin (S) [Mass/Vol] 2.7 g/dL 2.2-4.2 [facility] Serum glucose measurement (m ass/volume)Ordered By: Kam Ocampo on 04-14-2024 Glucose [Mass/Vol] 80 mg/dL 70-99 [facility] Serum or plasma alanine browne otransferase (ALT) measurementOrdered By: Kam Ocampo on 04-14-2024 ALT [Catalytic activity/Vol] 14 U/L <35 [facility] Serum or plasma albumin светлана urement (mass/volume)Ordered By: Kam Ocampo on 04-14-2024 Albumin [Mass/Vol] 3.2 g/dL Low 3.4-4.8 [facility] Serum or plasma albumin/glob ulin mass ratioOrdered By: Kam Ocampo on 04-14-2024 Albumin/Globulin [Mass ratio] 1.2 {ratio} 0.9-2.4 [facility] Serum or plasma alkaline noy sphatase measurementOrdered By: Kam Ocampo on 04-14-2024 ALP [Catalytic activity/Vol] 53 U/L 35-104 [facility] Serum or plasma calcium светлана urement (mass/volume)Ordered By: Kam Ocampo on 04-14-2024 Calcium [Mass/Vol] 9.0 mg/dL 7.6-11.0 [facility] Serum or plasma urea nitroge n measurement (mass/volume)Ordered By: Kam Ocampo on 04-14-2024 Urea nitrogen [Mass/Vol] 11 mg/dL 4-19 [facility] Sodium levelOrdered By: Kam Ocampo on 04-14-2024 Sodium [Moles/Vol] 137 mmol/L 133-145 [facility] Total proteinOrdered By: Aline Ocampo on 04-14-2024 Protein [Mass/Vol] 5.9 g/dL 5.9-8.4 [facility] White blood cell (WBC) count Ordered By: Kam Ocampo on 04-14-2024 WBC (Bld) [#/Vol] 4.5 10*3/uL 4.4-11.0 [facility] Absolute neutrophil countOrd ered By: Kam Ocampo on 02-09-2024 Neutrophils (Bld) [#/Vol] 3.2 10*3/uL 2.0-7.7 [facility] Basic Metabolic Profile (BMP )on 02-09-2024 BUN/CRE 18.4 RATIO Normal 10-20 [facility] Comment on above: Order Comment: 301.2 Performed By: #### L 500.2500, L100.0500 #### [facility] [address] [place], [address] Order Comment: 301.2 Performed By: #### L 500.2500, L100.0100 ####[facility] [address] [place], [address] CA,Total 9.0 mg/dL Normal 8.5-10.1 [facility] Comment on above: Order Comment: 301.2 Performed By: #### L 500.2500, L100.0500 #### [facility] [address] [place], [address] Order Comment: 301.2 Performed By: #### L 500.2500, L100.0100 ####[facility] [address] [place], [address] Chloride [Moles/Vol] 105 mmol/L Normal 98-107 [facility] Comment on above: Order Comment: 301.2 Performed By: #### L 500.2500, L100.0500 #### [facility] [address] [place], [address] Order Comment: 301.2 Performed By: #### L 500.2500, L100.0100 ####[facility] [address] [place], [address] CO2 [Moles/Vol] 28.0 mmol/L Normal 21.0-32.0 [facility] Comment on above: Order Comment: 301.2 Performed By: #### L 500.2500, L100.0500 #### [facility] [address] [place], [address] Order Comment: 301.2 Performed By: #### L 500.2500, L100.0100 ####[facility] [address] [place], [address] Creatinine [Mass/Vol] 0.98 mg/dL Normal 0.55-1.02 [facility] Comment on above: Order Comment: 301.2 Result Comment: The validity of the calculated GFR GFRAA in patients over 70 years has not been determined. Clinical correlation is essential. Performed By: #### L 500.2500, L100.0500 #### [facility] [address] [place], [address] Order Comment: 301.2 Result Comment: The validity of the calculated GFR GFRAA in patients over70 years has not been determined. Clinical correlation isessential. Performed By: #### L 500.2500, L100.0100 ####[facility] [address] [place], [address] EST GFR - AA 69 mL/min Normal >60 [facility] Comment on above: Order Comment: 301.2 Result Comment: Afri can [place] GFR Calc Performed By: #### L 500.2500, L100.0500 #### [facility] [address] [place], [address] Order Comment: 301.2 Result Comment: Afri can [place] GFR Calc Performed By: #### L 500.2500, L100.0100 ####[facility] [address] [place], [address] GAP 5 Normal 5-15 [facility] Comment on above: Order Comment: 301.2 Performed By: #### L 500.2500, L100.0500 #### [facility] [address] [place], [address] Order Comment: 301.2 Performed By: #### L 500.2500, L100.0100 ####[facility] [address] [place], [address] GFR/1.73 sq M.predicted among non-blacks MDRD (S/P/Bld) [Vol rate/Area] 57 mL/min/{1.73_m2} Low >60 [facility] Comment on above: Order Comment: 301.2 Result Comment: Non- GFR Calc Performed By: #### L 500.2500, L100.0500 #### [facility] [address] [place], [address] Order Comment: 301.2 Result Comment: Non- GFR Calc Performed By: #### L 500.2500, L100.0100 ####[facility] [address] [place], [address] Glucose [Mass/Vol] 88 mg/dL Normal 74-106 [facility] Comment on above: Order Comment: 301.2 Performed By: #### L 500.2500, L100.0500 #### [facility] [address] [place], [address] Order Comment: 301.2 Performed By: #### L 500.2500, L100.0100 ####[facility] [address] [place], [address] Potassium [Moles/Vol] 4.2 mmol/L Normal 3.5-5.1 [facility] Comment on above: Order Comment: 301.2 Performed By: #### L 500.2500, L100.0500 #### [facility] [address] [place], [address] Order Comment: 301.2 Performed By: #### L 500.2500, L100.0100 ####[facility] [address] [place], [address] Sodium [Moles/Vol] 138 mmol/L Normal 136-145 [facility] Comment on above: Order Comment: 301.2 Performed By: #### L 500.2500, L100.0500 #### [facility] [address] [place], [address] Order Comment: 301.2 Performed By: #### L 500.2500, L100.0100 ####[facility] [address] [place], [address] Urea nitrogen [Mass/Vol] 18 mg/dL Normal 7-18 [facility] Comment on above: Order Comment: 301.2 Performed By: #### L 500.2500, L100.0500 #### [facility] [address] [place], [address] Order Comment: 301.2 Performed By: #### L 500.2500, L100.0100 ####[facility] [address] [place], [address] Basophil percentageOrdered B y: Kam Ocampo on 02-09-2024 Basophils/100 WBC (Bld) 0.2 % 0-1 [facility] Blood urea nitrogen (BUN)/cr eatinine ratioOrdered By: Kam Ocampo on 02-09-2024 Urea nitrogen/Creatinine [Mass ratio] 18.4 mg/mg - [facility] CBC W/Diff, Automatedon - Absolute Lymph 1.89 X10 3/uL Normal 0.83-4.51 [facility] Comment on above: Order Comment: 301.2 Performed By: #### L 500.2500, L100.0500 #### [facility] [address] [place], [address] Order Comment: 301.2 Performed By: #### L 500.2500, L100.0100 ####[facility] [address] [place], [address] Absolute Neut 3.2 X10 3/uL Normal 2.0-7.7 [facility] Comment on above: Order Comment: 301.2 Performed By: #### L 500.2500, L100.0500 #### [facility] [address] [place], [address] Order Comment: 301.2 Performed By: #### L 500.2500, L100.0100 ####[facility] [address] [place], [address] Basophils/100 WBC (Bld) 0.2 % Normal 0-1 [facility] Comment on above: Order Comment: 301.2 Performed By: #### L 500.2500, L100.0500 #### [facility] [address] [place], [address] Order Comment: 301.2 Performed By: #### L 500.2500, L100.0100 ####[facility] [address] [place], [address] Eosinophils/100 WBC (Bld) 0.2 % Normal 0-5 [facility] Comment on above: Order Comment: 301.2 Performed By: #### L 500.2500, L100.0500 #### [facility] [address] [place], [address] Order Comment: 301.2 Performed By: #### L 500.2500, L100.0100 ####[facility] [address] [place], [address] Erythrocyte distribution width (RBC) [Ratio] 13.9 % Normal 11.6-14.6 [facility] Comment on above: Order Comment: 301.2 Performed By: #### L 500.2500, L100.0500 #### [facility] [address] [place], [address] Order Comment: 301.2 Performed By: #### L 500.2500, L100.0100 ####[facility] [address] [place], [address] Hematocrit (Bld) [Volume fraction] 30.0 % Low 37-47 [facility] Comment on above: Order Comment: 301.2 Performed By: #### L 500.2500, L100.0500 #### [facility] [address] [place], [address] Order Comment: 301.2 Performed By: #### L 500.2500, L100.0100 ####[facility] [address] [place], [address] Hemoglobin (Bld) [Mass/Vol] 10.0 g/dL Low 12.0-15.0 [facility] Comment on above: Order Comment: 301.2 Performed By: #### L 500.2500, L100.0500 #### [facility] [address] [place], [address] Order Comment: 301.2 Performed By: #### L 500.2500, L100.0100 ####[facility] [address] [place], [address] IG% 0.400 Normal 0.0-0.9 [facility] Comment on above: Order Comment: 301.2 Result Comment: IG% - Immature Granulocytes (promyelocytes, myelocytes and metamyelocytes) > 1% indicates that a LEFT SHIFT is Present. Performed By: #### L 500.2500, L100.0500 #### [facility] [address] [place], [address] Order Comment: 301.2 Result Comment: IG% - Immature Granulocytes (promyelocytes, myelocytes andmetamyelocytes) > 1% indicates that a LEFT SHIFT is Present. Performed By: #### L 500.2500, L100.0100 ####[facility] [address] [place], [address] Lymphocytes/100 WBC (Bld) 33.9 % Normal 19-41 [facility] Comment on above: Order Comment: 301.2 Performed By: #### L 500.2500, L100.0500 #### [facility] [address] [place], [address] Order Comment: 301.2 Performed By: #### L 500.2500, L100.0100 ####[facility] [address] [place], [address] MCH (RBC) [Entitic mass] 32.3 pg High 27.0-32.0 [facility] Comment on above: Order Comment: 301.2 Performed By: #### L 500.2500, L100.0500 #### [facility] [address] [place], [address] Order Comment: 301.2 Performed By: #### L 500.2500, L100.0100 ####[facility] [address] [place], [address] MCHC (RBC) [Mass/Vol] 33.3 g/dL Normal 32-36 [facility] Comment on above: Order Comment: 301.2 Performed By: #### L 500.2500, L100.0500 #### [facility] [address] [place], [address] Order Comment: 301.2 Performed By: #### L 500.2500, L100.0100 ####[facility] [address] [place], [address] MCV (RBC) [Entitic vol] 96.8 fL Normal 81-99 [facility] Comment on above: Order Comment: 301.2 Performed By: #### L 500.2500, L100.0500 #### [facility] [address] [place], [address] Order Comment: 301.2 Performed By: #### L 500.2500, L100.0100 ####[facility] [address] [place], [address] Monocytes/100 WBC (Bld) 8.8 % Normal 0-10 [facility] Comment on above: Order Comment: 301.2 Performed By: #### L 500.2500, L100.0500 #### [facility] [address] [place], [address] Order Comment: 301.2 Performed By: #### L 500.2500, L100.0100 ####[facility] [address] [place], [address] Neutrophils/100 WBC (Bld) 56.5 % Normal 47-70 [facility] Comment on above: Order Comment: 301.2 Performed By: #### L 500.2500, L100.0500 #### [facility] [address] [place], [address] Order Comment: 301.2 Performed By: #### L 500.2500, L100.0100 ####[facility] [address] [place], [address] Nucleated RBC (Bld) [#/Vol] 0 10*3/uL Normal 0-5 [facility] Comment on above: Order Comment: 301.2 Performed By: #### L 500.2500, L100.0500 #### [facility] [address] [place], [address] Order Comment: 301.2 Performed By: #### L 500.2500, L100.0100 ####[facility] [address] [place], [address] Platelet mean volume (Bld) [Entitic vol] 9.5 fL Normal 6.2-12.0 [facility] Comment on above: Order Comment: 301.2 Performed By: #### L 500.2500, L100.0500 #### [facility] [address] [place], [address] Order Comment: 301.2 Performed By: #### L 500.2500, L100.0100 ####[facility] [address] [place], [address] Platelets (Bld) [#/Vol] 181 10*3/uL Normal 150-450 [facility] Comment on above: Order Comment: 301.2 Performed By: #### L 500.2500, L100.0500 #### [facility] [address] [place], [address] Order Comment: 301.2 Performed By: #### L 500.2500, L100.0100 ####[facility] [address] [place], [address] RBC (Bld) [#/Vol] 3.10 10*6/uL Low 4.2-5.4 [facility] Comment on above: Order Comment: 301.2 Performed By: #### L 500.2500, L100.0500 #### [facility] [address] [place], [address] Order Comment: 301.2 Performed By: #### L 500.2500, L100.0100 ####[facility] [address] [place], [address] RDW SD 48.9 fl High 35.1-43.9 [facility] Comment on above: Order Comment: 301.2 Performed By: #### L 500.2500, L100.0500 #### [facility] [address] [place], [address] Order Comment: 301.2 Performed By: #### L 500.2500, L100.0100 ####[facility] [address] [place], [address] WBC (Bld) [#/Vol] 5.6 10*3/uL Normal 4.4-11.0 [facility] Comment on above: Order Comment: 301.2 Performed By: #### L 500.2500, L100.0500 #### [facility] [address] [place], [address] Order Comment: 301.2 Performed By: #### L 500.2500, L100.0100 ####[facility] [address] [place], [address] Carbon dioxide measurementOr dered By: Kam Ocampo on 02-09-2024 CO2 [Moles/Vol] 28.0 mmol/L 21.0-32.0 [facility] Chloride measurementOrdered By: Kam Ocampo on 02-09-2024 Chloride [Moles/Vol] 105 mmol/L 98-107 [facility] Eosinophil percentageOrdered By: Kam Ocampo on 02-09-2024 Eosinophils/100 WBC (Bld) 0.2 % 0-5 [facility] Erythrocyte distribution wid th (RBC) [Ratio]Ordered By: Kam Ocampo on 02-09-2024 Erythrocyte distribution width (RBC) [Entitic vol] 48.9 fL High 35.1-43.9 [facility] Erythrocyte distribution wid th ratioOrdered By: Kam Ocampo on 02-09-2024 Erythrocyte distribution width (RBC) [Ratio] 13.9 % 11.6-14.6 [facility] Estimated glomerular filtrat ion rate (GFR) AmericanOrdered By: Kam Ocampo on 02-09-2024 Estimated GFR (MDRD) Amer 69 mL/min >60 [facility] Comment on above: GFR Calc Glomerular filtration rate ( GFR) estimationOrdered By: Kam Ocampo on 02-09-2024 Estimated GFR (MDRD) Non-Af Amer 57 mL/min Low >60 [facility] Comment on above: Non- GFR Calc Glucose measurementOrdered B y: Kam Ocampo on 02-09-2024 Glucose [Mass/Vol] 88 mg/dL 74-106 [facility] Hematocrit Auto (Bld) [Volum e fraction]Ordered By: Kam Ocampo on 02-09-2024 Hematocrit (Bld) [Volume fraction] 30.0 % Low 37-47 [facility] Hemoglobin measurementOrdere d By: Kam Ocampo on 02-09-2024 Hemoglobin (Bld) [Mass/Vol] 10.0 g/dL Low 12.0-15.0 [facility] Immature granulocytes/100 WB C Auto (Bld)Ordered By: Kam Ocampo on 02-09-2024 Immature granulocytes/100 WBC (Bld) 0.400 % 0.0-0.9 [facility] Comment on above: IG% - Immature Granu locytes (promyelocytes, myelocytes and metamyelocytes) > 1% indicates that a LEFT SHIFT is Present. Lymphocytes Auto (Unsp spec) [#/Vol]Ordered By: Kam Ocampo on 02-09-2024 Lymphocytes (Bld) [#/Vol] 1.89 10*3/uL 0.83-4.51 [facility] Lymphocytes/100 WBC Auto (Un sp spec)Ordered By: Kam Ocampo on 02-09-2024 Lymphocytes/100 WBC (Bld) 33.9 % 19-41 [facility] MCV (mean corpuscular volume ) determinationOrdered By: Kam Ocampo on 02-09-2024 MCV (RBC) [Entitic vol] 96.8 fL 81-99 [facility] Mean corpuscular hemoglobin (MCH) determinationOrdered By: Kam Ocampo on 02-09-2024 MCH (RBC) [Entitic mass] 32.3 pg High 27.0-32.0 [facility] Mean corpuscular hemoglobin concentration (MCHC) determinationOrdered By: Kam Ocampo on 02-09-2024 MCHC (RBC) [Mass/Vol] 33.3 g/dL 32-36 [facility] Mean platelet volume determi nationOrdered By: Kam Ocampo on 02-09-2024 Platelet mean volume (Bld) [Entitic vol] 9.5 fL 6.2-12.0 [facility] Monocyte percentageOrdered B y: Kam Ocampo on 02-09-2024 Monocytes/100 WBC (Bld) 8.8 % 0-10 [facility] Neutrophil percentageOrdered By: Kam Ocampo on 02-09-2024 Neutrophils/100 WBC (Bld) 56.5 % 47-70 [facility] Nucleated red blood cell per centageOrdered By: Kam Ocampo on 02-09-2024 Nucleated RBC/100 WBC (Bld) [Ratio] 0 % 0-5 [facility] Platelet countOrdered By: Dugan on 02-09-2024 Platelets (Bld) [#/Vol] 181 10*3/uL 150-450 [facility] Potassium measurementOrdered By: Kam Ocampo on 02-09-2024 Potassium [Moles/Vol] 4.2 mmol/L 3.5-5.1 [facility] RBC Auto (Bld) [#/Vol]Ordere d By: Kam Ocampo on 02-09-2024 RBC (Bld) [#/Vol] 3.10 10*6/uL Low 4.2-5.4 [facility] Serum anion gap measurementO rdered By: Kam Ocampo on 02-09-2024 Anion gap [Moles/Vol] 5 mmol/L 5-15 [facility] Serum or plasma calcium светлана urement (mass/volume)Ordered By: Kam Ocampo on 02-09-2024 Calcium [Mass/Vol] 9.0 mg/dL 8.5-10.1 [facility] Serum or plasma creatinine m easurement (mass/volume)Ordered By: Kam Ocampo on 02-09-2024 Creatinine [Mass/Vol] 0.98 mg/dL 0.55-1.02 [facility] Comment on above: The validity of the calculated GFR & GFRAA in patients over 70 years has not been determined. Clinical correlation is essential. Serum or plasma urea nitroge n measurement (mass/volume)Ordered By: Kam Ocampo on 02-09-2024 Urea nitrogen [Mass/Vol] 18 mg/dL 7-18 [facility] Sodium levelOrdered By: Kam Ocampo on 02-09-2024 Sodium [Moles/Vol] 138 mmol/L 136-145 [facility] White blood cell (WBC) count Ordered By: Kam Ocampo on 02-09-2024 WBC (Bld) [#/Vol] 5.6 10*3/uL 4.4-11.0 [facility] FLU AND RSV PANEL MOLECULARo n 02-08-2024 FLU AND RSV PANEL INFLUENZA A Negative INFLUENZA B Negative RSV PCR Negative Normal [facility] Comment on above: Performed By: #### L 500.2500, L100.0500 #### [facility] [address] [facility] [place], [place], [id number] Performed By: #### M 100.640 ####[facility] [address] [place], [place], [id number] No Panel InformationOrdered By: Kam Ocampo on 02-08-2024 Influenza & RSV (PCR) [facility] Urine Cultureon 01-27-2024 URC Culture exhibits no growth. Normal [facility] Comment on above: Performed By: #### L 500.2500, L100.0500 #### [facility] [address] [place], [place], [id number] Performed By: #### M 100.2200, L100.0500, L400.0001, L500.4050 ####[facility] [address] [place], [address] Albumin to globulin ratioOrd ered By: Kam Ocampo on 01-26-2024 Albumin/Globulin [Mass ratio] 0.7 {ratio} Low 0.9-2.4 [facility] Bilirubin, totalOrdered By: Kam Ocampo on 01-26-2024 Bilirubin [Mass/Vol] 0.50 mg/dL 0.20-1.00 [facility] Comment on above: For patients on eltr ombopag therapy, use of Dimension [place] TBIL is not recommended. Blood urea nitrogen (BUN)/cr eatinine ratioOrdered By: Kam Ocampo on 01-26-2024 Urea nitrogen/Creatinine [Mass ratio] 15.8 mg/mg - [facility] CBC-Complete Blood Cnt No Di ffon 01-26-2024 Erythrocyte distribution width (RBC) [Ratio] 13.5 % Normal 11.6-14.6 [facility] Comment on above: Performed By: #### L 500.2500, L100.0500 #### [facility] [address] [place], [address] Performed By: #### M 100.2200, L100.0500, L400.0001, L500.4050 ####[facility] [address] [place], [address] Hematocrit (Bld) [Volume fraction] 31.1 % Low 37-47 [facility] Comment on above: Performed By: #### L 500.2500, L100.0500 #### [facility] [address] [place], [address] Performed By: #### M 100.2200, L100.0500, L400.0001, L500.4050 ####[facility] [address] [place], [address] Hemoglobin (Bld) [Mass/Vol] 10.0 g/dL Low 12.0-15.0 [facility] Comment on above: Performed By: #### L 500.2500, L100.0500 #### [facility] [address] [place], [address] Performed By: #### M 100.2200, L100.0500, L400.0001, L500.4050 ####[facility] [address] [place], [address] MCH (RBC) [Entitic mass] 31.6 pg Normal 27.0-32.0 [facility] Comment on above: Performed By: #### L 500.2500, L100.0500 #### [facility] [address] [place], [address] Performed By: #### M 100.2200, L100.0500, L400.0001, L500.4050 ####[facility] [address] [place], [address] MCHC (RBC) [Mass/Vol] 32.2 g/dL Normal 32-36 [facility] Comment on above: Performed By: #### L 500.2500, L100.0500 #### [facility] [address] [place], [address] Performed By: #### M 100.2200, L100.0500, L400.0001, L500.4050 ####[facility] [address] [place], [address] MCV (RBC) [Entitic vol] 98.4 fL Normal 81-99 [facility] Comment on above: Performed By: #### L 500.2500, L100.0500 #### [facility] [address] [place], [address] Performed By: #### M 100.2200, L100.0500, L400.0001, L500.4050 ####[facility] [address] [place], [address] Platelet mean volume (Bld) [Entitic vol] 9.2 fL Normal 6.2-12.0 [facility] Comment on above: Performed By: #### L 500.2500, L100.0500 #### [facility] [address] [place], [address] Performed By: #### M 100.2200, L100.0500, L400.0001, L500.4050 ####[facility] [address] [place], [address] Platelets (Bld) [#/Vol] 197 10*3/uL Normal 150-450 [facility] Comment on above: Performed By: #### L 500.2500, L100.0500 #### [facility] [address] [place], [address] Performed By: #### M 100.2200, L100.0500, L400.0001, L500.4050 ####[facility] [address] [place], [address] RBC (Bld) [#/Vol] 3.16 10*6/uL Low 4.2-5.4 [facility] Comment on above: Performed By: #### L 500.2500, L100.0500 #### [facility] [address] [place], [address] Performed By: #### M 100.2200, L100.0500, L400.0001, L500.4050 ####[facility] [address] [place], [address] RDW SD 48.3 fl High 35.1-43.9 [facility] Comment on above: Performed By: #### L 500.2500, L100.0500 #### [facility] [address] [place], [address] Performed By: #### M 100.2200, L100.0500, L400.0001, L500.4050 ####[facility] [address] [place], [address] WBC (Bld) [#/Vol] 5.2 10*3/uL Normal 4.4-11.0 [facility] Comment on above: Performed By: #### L 500.2500, L100.0500 #### [facility] [address] [place], [address] Performed By: #### M 100.2200, L100.0500, L400.0001, L500.4050 ####[facility] [address] [place], [address] Carbon dioxide measurementOr dered By: Kam Ocampo on 01-26-2024 CO2 [Moles/Vol] 29.0 mmol/L 21.0-32.0 [facility] Chloride measurementOrdered By: Kam Ocampo on 01-26-2024 Chloride [Moles/Vol] 110 mmol/L High 98-107 [facility] Comprehensive Metabolic Prof ilon 01-26-2024 Albumin [Mass/Vol] 2.6 g/dL Low 3.2-5.0 [facility] Comment on above: Order Comment: 301.2 Performed By: #### L 500.2500, L100.0500 #### [facility] [address] [place], [address] Order Comment: 301.2 SC Performed By: #### M 100.2200, L100.0500, L400.0001, L500.4050 ####[facility] [address] [place], [address] Albumin/Globulin [Mass ratio] 0.7 {ratio} Low 0.9-2.4 [facility] Comment on above: Order Comment: 301.2 Performed By: #### L 500.2500, L100.0500 #### [facility] [address] [place], [address] Order Comment: 301.2 SC Performed By: #### M 100.2200, L100.0500, L400.0001, L500.4050 ####[facility] [address] [place], [address] ALK P 67 U/L Normal 45-117 [facility] Comment on above: Order Comment: 301.2 Performed By: #### L 500.2500, L100.0500 #### [facility] [address] [place], [address] Order Comment: 301.2 SC Performed By: #### M 100.2200, L100.0500, L400.0001, L500.4050 ####[facility] [address] [place], [address] ALT [Catalytic activity/Vol] 28 U/L Normal 13-56 [facility] Comment on above: Order Comment: 301.2 Performed By: #### L 500.2500, L100.0500 #### [facility] [address] [place], [address] Order Comment: 301.2 SC Performed By: #### M 100.2200, L100.0500, L400.0001, L500.4050 ####[facility] [address] [place], [address] AST [Catalytic activity/Vol] 25 U/L Normal 15-37 [facility] Comment on above: Order Comment: 301.2 Performed By: #### L 500.2500, L100.0500 #### [facility] [address] [place], [address] Order Comment: 301.2 SC Performed By: #### M 100.2200, L100.0500, L400.0001, L500.4050 ####[facility] [address] [place], [address] Bilirubin [Mass/Vol] 0.50 mg/dL Normal 0.20-1.00 [facility] Comment on above: Order Comment: 301.2 Result Comment: For patients on eltrombopag therapy, use of Dimension [place] TBIL is not recommended. Performed By: #### L 500.2500, L100.0500 #### [facility] [address] [place], [address] Order Comment: 301.2 SC Result Comment: For patients on eltrombopag therapy, use of Dimension [place] TBIL is not recommended. Performed By: #### M 100.2200, L100.0500, L400.0001, L500.4050 ####[facility] [address] [place], [address] BUN/CRE 15.8 RATIO Normal 10-20 [facility] Comment on above: Order Comment: 301.2 Performed By: #### L 500.2500, L100.0500 #### [facility] [address] [place], [address] Order Comment: 301.2 SC Performed By: #### M 100.2200, L100.0500, L400.0001, L500.4050 ####[facility] [address] [place], [address] CA,Total 8.6 mg/dL Normal 8.5-10.1 [facility] Comment on above: Order Comment: 301.2 Performed By: #### L 500.2500, L100.0500 #### [facility] [address] [place], [address] Order Comment: 301.2 SC Performed By: #### M 100.2200, L100.0500, L400.0001, L500.4050 ####[facility] [address] [place], [address] Chloride [Moles/Vol] 110 mmol/L High 98-107 [facility] Comment on above: Order Comment: 301.2 Performed By: #### L 500.2500, L100.0500 #### [facility] [address] [place], [address] Order Comment: 301.2 SC Performed By: #### M 100.2200, L100.0500, L400.0001, L500.4050 ####[facility] [address] [place], [address] CO2 [Moles/Vol] 29.0 mmol/L Normal 21.0-32.0 [facility] Comment on above: Order Comment: 301.2 Performed By: #### L 500.2500, L100.0500 #### [facility] [address] [place], [address] Order Comment: 301.2 SC Performed By: #### M 100.2200, L100.0500, L400.0001, L500.4050 ####[facility] [address] [place], [address] Creatinine [Mass/Vol] 0.89 mg/dL Normal 0.55-1.02 [facility] Comment on above: Order Comment: 301.2 Result Comment: The validity of the calculated GFR GFRAA in patients over 70 years has not been determined. Clinical correlation is essential. Performed By: #### L 500.2500, L100.0500 #### [facility] [address] [place], [address] Order Comment: 301.2 SC Result Comment: The validity of the calculated GFR GFRAA in patients over70 years has not been determined. Clinical correlation isessential. Performed By: #### M 100.2200, L100.0500, L400.0001, L500.4050 ####[facility] [address] [place], [address] EST GFR - AA 77 mL/min Normal >60 [facility] Comment on above: Order Comment: 301.2 Result Comment: Afri can [place] GFR Calc Performed By: #### L 500.2500, L100.0500 #### [facility] [address] [place], [address] Order Comment: 301.2 SC Result Comment: Afri can [place] GFR Calc Performed By: #### M 100.2200, L100.0500, L400.0001, L500.4050 ####[facility] [address] [place], [address] GAP 3 Low 5-15 [facility] Comment on above: Order Comment: 301.2 Performed By: #### L 500.2500, L100.0500 #### [facility] [address] [place], [address] Order Comment: 301.2 SC Performed By: #### M 100.2200, L100.0500, L400.0001, L500.4050 ####[facility] [address] [place], [address] GFR/1.73 sq M.predicted among non-blacks MDRD (S/P/Bld) [Vol rate/Area] 64 mL/min/{1.73_m2} Normal >60 [facility] Comment on above: Order Comment: 301.2 Result Comment: Non- GFR Calc Performed By: #### L 500.2500, L100.0500 #### [facility] [address] [place], [address] Order Comment: 301.2 SC Result Comment: Non- GFR Calc Performed By: #### M 100.2200, L100.0500, L400.0001, L500.4050 ####[facility] [address] [place], [address] Globulin (S) [Mass/Vol] 3.8 g/dL Normal 2.2-4.2 [facility] Comment on above: Order Comment: 301.2 Performed By: #### L 500.2500, L100.0500 #### [facility] [address] [place], [address] Order Comment: 301.2 SC Performed By: #### M 100.2200, L100.0500, L400.0001, L500.4050 ####[facility] [address] [place], [address] Glucose [Mass/Vol] 84 mg/dL Normal 74-106 [facility] Comment on above: Order Comment: 301.2 Performed By: #### L 500.2500, L100.0500 #### [facility] [address] [place], [address] Order Comment: 301.2 SC Performed By: #### M 100.2200, L100.0500, L400.0001, L500.4050 ####[facility] [address] [place], [address] Potassium [Moles/Vol] 4.4 mmol/L Normal 3.5-5.1 [facility] Comment on above: Order Comment: 301.2 Performed By: #### L 500.2500, L100.0500 #### [facility] [address] [place], [address] Order Comment: 301.2 SC Performed By: #### M 100.2200, L100.0500, L400.0001, L500.4050 ####[facility] [address] [place], [address] Sodium [Moles/Vol] 142 mmol/L Normal 136-145 [facility] Comment on above: Order Comment: 301.2 Performed By: #### L 500.2500, L100.0500 #### [facility] [address] [place], [address] Order Comment: 301.2 SC Performed By: #### M 100.2200, L100.0500, L400.0001, L500.4050 ####[facility] [address] [place], [address] T PROT 6.4 g/dL Normal 6.4-8.2 [facility] Comment on above: Order Comment: 301.2 Performed By: #### L 500.2500, L100.0500 #### [facility] [address] [place], [address] Order Comment: 301.2 SC Performed By: #### M 100.2200, L100.0500, L400.0001, L500.4050 ####[facility] [address] [place], [address] Urea nitrogen [Mass/Vol] 14 mg/dL Normal 7-18 [facility] Comment on above: Order Comment: 301.2 Performed By: #### L 500.2500, L100.0500 #### [facility] [address] [place], [address] Order Comment: 301.2 SC Performed By: #### M 100.2200, L100.0500, L400.0001, L500.4050 ####[facility] [address] [place], [address] Erythrocyte distribution wid th (RBC) [Ratio]Ordered By: Kam Ocampo on 01-26-2024 Erythrocyte distribution width (RBC) [Entitic vol] 48.3 fL High 35.1-43.9 [facility] Erythrocyte distribution wid th ratioOrdered By: Kam Ocampo on 01-26-2024 Erythrocyte distribution width (RBC) [Ratio] 13.5 % 11.6-14.6 [facility] Estimated glomerular filtrat ion rate (GFR) AmericanOrdered By: Kam Ocampo on 01-26-2024 Estimated GFR (MDRD) Amer 77 mL/min >60 [facility] Comment on above: GFR Calc Glomerular filtration rate ( GFR) estimationOrdered By: Kam Ocampo on 01-26-2024 Estimated GFR (MDRD) Non-Af Amer 64 mL/min >60 [facility] Comment on above: Non- GFR Calc Glucose measurementOrdered B y: Kam Ocampo on 01-26-2024 Glucose [Mass/Vol] 84 mg/dL 74-106 [facility] Hematocrit Auto (Bld) [Volum e fraction]Ordered By: Kam Ocampo on 01-26-2024 Hematocrit (Bld) [Volume fraction] 31.1 % Low 37-47 [facility] Hemoglobin measurementOrdere d By: Kam Ocampo on 01-26-2024 Hemoglobin (Bld) [Mass/Vol] 10.0 g/dL Low 12.0-15.0 [facility] - Chemistry and C hemistry - challengeOrdered By: Kam Ocampo on 01-26-2024 AST [Catalytic activity/Vol] 25 U/L 15-37 [facility] MCV (mean corpuscular volume ) determinationOrdered By: Kam Ocampo on 01-26-2024 MCV (RBC) [Entitic vol] 98.4 fL 81-99 [facility] Mean corpuscular hemoglobin (MCH) determinationOrdered By: Kam Ocampo on 01-26-2024 MCH (RBC) [Entitic mass] 31.6 pg 27.0-32.0 [facility] Mean corpuscular hemoglobin concentration (MCHC) determinationOrdered By: Kam Ocampo on 01-26-2024 MCHC (RBC) [Mass/Vol] 32.2 g/dL 32-36 [facility] Mean platelet volume determi nationOrdered By: Kam Ocampo on 01-26-2024 Platelet mean volume (Bld) [Entitic vol] 9.2 fL 6.2-12.0 [facility] Platelet countOrdered By: Dugan on 01-26-2024 Platelets (Bld) [#/Vol] 197 10*3/uL 150-450 [facility] Potassium measurementOrdered By: Kam Ocampo on 01-26-2024 Potassium [Moles/Vol] 4.4 mmol/L 3.5-5.1 [facility] RBC Auto (Bld) [#/Vol]Ordere d By: Kam Ocampo on 01-26-2024 RBC (Bld) [#/Vol] 3.16 10*6/uL Low 4.2-5.4 [facility] Serum anion gap measurementO rdered By: Kam Ocampo on 01-26-2024 Anion gap [Moles/Vol] 3 mmol/L Low 5-15 [facility] Serum globulin measurementOr dered By: Kam Ocampo on 01-26-2024 Globulin (S) [Mass/Vol] 3.8 g/dL 2.2-4.2 [facility] Serum or plasma alanine browne otransferase (ALT) measurementOrdered By: Kam Ocampo on 01-26-2024 ALT [Catalytic activity/Vol] 28 U/L 13-56 [facility] Serum or plasma albumin светлана urement (mass/volume)Ordered By: Kam Ocampo on 01-26-2024 Albumin [Mass/Vol] 2.6 g/dL Low 3.2-5.0 [facility] Serum or plasma alkaline noy sphatase measurementOrdered By: Kam Ocampo on 01-26-2024 ALP [Catalytic activity/Vol] 67 U/L 45-117 [facility] Serum or plasma calcium светлана urement (mass/volume)Ordered By: Kam Ocampo on 01-26-2024 Calcium [Mass/Vol] 8.6 mg/dL 8.5-10.1 [facility] Serum or plasma creatinine m easurement (mass/volume)Ordered By: Kam Ocampo on 01-26-2024 Creatinine [Mass/Vol] 0.89 mg/dL 0.55-1.02 [facility] Comment on above: The validity of the calculated GFR & GFRAA in patients over 70 years has not been determined. Clinical correlation is essential. Serum or plasma urea nitroge n measurement (mass/volume)Ordered By: Kam Ocampo on 01-26-2024 Urea nitrogen [Mass/Vol] 14 mg/dL 7-18 [facility] Sodium levelOrdered By: Kamwilber Ocampo on 01-26-2024 Sodium [Moles/Vol] 142 mmol/L 136-145 [facility] Total proteinOrdered By: Aline Ocampo on 01-26-2024 Protein [Mass/Vol] 6.4 g/dL 6.4-8.2 [facility] Urinalysis, Completeon 01-25 Mucus Ql (Urine sed) RARE Normal [facility] Comment on above: Order Comment: 301.2 Performed By: #### L 500.2500, L100.0500 #### [facility] [address] [place], [place], [address] Order Comment: SCCAT HETER SPECIMEN Performed By: #### M 100.2200, L100.0500, L400.0001, L500.4050 ####[facility] [address] [place], [address] WBC 0-5 SEEN Normal 0-5 [facility] Comment on above: Order Comment: 301.2 Performed By: #### L 500.2500, L100.0500 #### [facility] [address] [place], [place], [address] Order Comment: SCCAT HETER SPECIMEN Performed By: #### M 100.2200, L100.0500, L400.0001, L500.4050 ####[facility] [address] [place], [address] BACTERIA 0 SEEN Normal None Seen [facility] Comment on above: Order Comment: 301.2 Performed By: #### L 500.2500, L100.0500 #### [facility] [address] [place], [address] Order Comment: SCCAT HETER SPECIMEN Performed By: #### M 100.2200, L100.0500, L400.0001, L500.4050 ####[facility] [address] [place], [address] EPI,SQUAMOUS 0 SEEN Normal 5-10 [facility] Comment on above: Order Comment: 301.2 Performed By: #### L 500.2500, L100.0500 #### [facility] [address] [place], [address] Order Comment: SCCAT HETER SPECIMEN Performed By: #### M 100.2200, L100.0500, L400.0001, L500.4050 ####[facility] [address] [place], [address] RBC 0 SEEN Normal 0-5 [facility] Comment on above: Order Comment: 301.2 Performed By: #### L 500.2500, L100.0500 #### [facility] [address] [place], [address] Order Comment: SCCAT HETER SPECIMEN Performed By: #### M 100.2200, L100.0500, L400.0001, L500.4050 ####[facility] [address] [place], [address] White blood cell (WBC) count Ordered By: Kam Ocampo on 01-26-2024 WBC (Bld) [#/Vol] 5.2 10*3/uL 4.4-11.0 [facility] Bilirubin Test strip Ql (U)O rdered By: Kam Ocampo on 01-25-2024 Bilirubin Ql (U) Negative Negative [facility] Epithelial cells.squamous LM Ql (Urine sed)Ordered By: Kam Ocampo on 01-25-2024 Epithelial cells.squamous LM.HPF (Urine sed) [#/Area] 0 /[HPF] 5-10 [facility] Glucose Ql (U)Ordered By: Dugan on 01-25-2024 Urine Glucose (UA) Normal mg/dl Normal [facility] Ketones Test strip Ql (U)Ord ered By: Kam Ocampo on 01-25-2024 Ketones Ql (U) Negative Negative [facility] Microscopic analysis of urin e for red blood cells (RBC)Ordered By: Kam Ocampo on 01-25-2024 Urine RBC 0 SEEN /hpf 0-5 [facility] Mucus LM Ql (Urine sed)Order ed By: Kam Ocampo on 01-25-2024 Mucus Ql (Urine sed) RARE /hpf [facility] Nitrite Test strip Ql (U)Ord ered By: Kam Ocampo on 01-25-2024 Nitrite Ql (U) Negative Negative [facility] Protein Test strip Ql (U)Ord ered By: Kam Ocampo on 01-25-2024 Protein Ql (U) 15 mg/dl High Negative [facility] Urine blood detectionOrdered By: Kam Ocampo on 01-25-2024 Urine Occult Blood Negative Negative [facility] Urine clarityOrdered By: Aline Ocampo on 01-25-2024 Clarity (U) Clear Clear [facility] Urine color determinationOrd ered By: Kam Ocampo on 01-25-2024 Color (U) Yellow Yellow [facility] Urine cultureOrdered By: Aline Ocampo on 01-25-2024 Bacteria identified Cx Nom (U) Culture exhibits no growth. [facility] Urine leukocyte esterase det ection by dipstickOrdered By: Kam Ocampo on 01-25-2024 Leukocyte esterase Test strip Ql (U) 25 /ul High Negative [facility] Urine pHOrdered By: Kam barker on 01-25-2024 pH (U) 6.0 [pH] 5.0 - 8.0 [facility] Urine sediment bacteria coun t by microscopy (number/high power field)Ordered By: Kam Ocampo on 01-25-2024 Bacteria LM.HPF (Urine sed) [#/Area] 0 /[HPF] None Seen [facility] Urine specific gravity measu rementOrdered By: Kam Ocampo on 01-25-2024 Specific gravity (U) [Rel density] 1.015 1.002-1.03 0 [facility] Urobilinogen Ql (U)Ordered B y: Kam Ocampo on 01-25-2024 Urine Urobilinogen Normal mg/dl Normal [facility] White blood cell countOrdere d By: Kam Ocampo on 01-25-2024 Urine WBC 0-5 SEEN /hpf 0-5 [facility] Urine Cultureon 01-13-2024 URC Proteus mirabilis [place] Count >100,000 Proteus mirabilis: REACTION Ampicillin Islt AYAH <=2 Ampicillin+Sulbac Islt AYAH <=2 S ceFAZolin Islt AYAH <=4 S Cefepime Islt AYAH <=0.12 S cefTRIAXone Islt AYAH <=0.25 S Ciprofloxacin Islt AYAH >=4 R Gentamicin Islt AYAH <=1 S Imipenem Islt AAYH 2 S levoFLOXacin Islt AYAH >=8 R Nitrofurantoin Islt AYAH R Pip+Tazo Islt AYAH <=4 S Tobramycin Islt AYAH <=1 S TMP SMX Islt AYAH >=320 R Normal [facility] Comment on above: Performed By: #### L 500.2500, L100.0500 #### [facility] [address] [place], [place], [address] URC Normal [facility] Comment on above: Performed By: #### M 100.2200, L400.0001 ####[facility] [address] [place], [address] Urinalysis, Completeon 01-10 RBC 0-5 SEEN Normal 0-5 [facility] Comment on above: Order Comment: 301.2 Performed By: #### L 500.2500, L100.0500 #### [facility] [address] [place], [place], [address] Order Comment: CLEAN CATCH Performed By: #### M 100.2200, L400.0001 ####[facility] [address] [place], [address] BACTERIA 2+ /hpf Normal None Seen [facility] Comment on above: Order Comment: 301.2 Performed By: #### L 500.2500, L100.0500 #### [facility] [address] [place], [address] Order Comment: CLEAN CATCH Performed By: #### M 100.2200, L400.0001 ####[facility] [address] [place], [address] EPI,SQUAMOUS 0-5 SEEN Normal 5-10 [facility] Comment on above: Order Comment: 301.2 Performed By: #### L 500.2500, L100.0500 #### [facility] [address] [place], [address] Order Comment: CLEAN CATCH Performed By: #### M 100.2200, L400.0001 ####[facility] [facility] [address] [place], [address] WBC >100 SEEN Normal 0-5 [facility] Comment on above: Order Comment: 301.2 Performed By: #### L 500.2500, L100.0500 #### [facility] [address] [place], [address] Order Comment: CLEAN CATCH Performed By: #### M 100.2200, L400.0001 ####[facility] [address] [place], [address] Mucus Ql (Urine sed) [address] [facility] Comment on above: Order Comment: 301.2 Performed By: #### L 500.2500, L100.0500 #### [facility] [address] [place], [address] Order Comment: CLEAN CATCH Performed By: #### M 100.2200, L400.0001 ####[facility] [address] [place], [address] Lipid Profileon 12-14-2023 Cholesterol [Mass/Vol] 120 mg/dL Normal 200 [facility] Comment on above: Order Comment: 301.2 Result Comment: <200 mg/dL Desirable 200-240 mg/dL Borderline >240 mg/dL High Risk Performed By: #### L 501.080 #### [facility] [address] [place], [address] Order Comment: 301.2 Result Comment: <200 mg/dL Desirable 200-240 mg/dL Borderline >240 mg/dL High Risk Performed By: #### L 500.4100 ####[facility] [address] [place], [address] Cholesterol in HDL [Mass/Vol] 55 mg/dL Normal [facility] Comment on above: Order Comment: 301.2 Result Comment: The drugs N-Acetylcysteine and Metamizole may falsely depress this assay. Reference Range HDL <40 mg/dL Low HDL Cholesterol HDL >or= 60 mg/dL High HDL Cholesterol Performed By: #### L 501.080 #### [facility] [address] [place], [address] Order Comment: 301.2 Result Comment: The drugs N-Acetylcysteine and Metamizole may falselydepress this assay. Reference Range HDL <40 mg/dL Low HDL Cholesterol HDL >or= 60 mg/dL High HDL Cholesterol Performed By: #### L 500.4100 ####[facility] [address] [place], [address] Cholesterol in LDL [Mass/Vol] 51 mg/dL Normal 0-130 [facility] Comment on above: Order Comment: 301.2 Performed By: #### L 501.080 #### [facility] [address] [place], [address] Order Comment: 301.2 Performed By: #### L 500.4100 ####[facility] [address] [place], [place], [address] Cholesterol in VLDL [Mass/Vol] 14 mg/dL Normal 5-40 [facility] Comment on above: Order Comment: 301.2 Performed By: #### L 501.080 #### [facility] [address] [place], [address] Order Comment: 301.2 Performed By: #### L 500.4100 ####[facility] [address] [place], [place], [address] Triglyceride [Mass/Vol] 70 mg/dL Normal [facility] Comment on above: Order Comment: 301.2 Result Comment: The drugs N-Acetylcysteine and Metamizole may falsely depress this assay. Serum Triglycerides Reference Interval Normal <150 mg/dL Borderline high 150 - 199 mg/dL High 200 - 499 mg/dL Very High > or = 500 mg/dL Performed By: #### L 501.080 #### [facility] [address] [place], [place], [address] Order Comment: 301.2 Result Comment: The drugs N-Acetylcysteine and Metamizole may falselydepress this assay.Serum Triglycerides Reference Interval Normal <150 mg/dL Borderline high 150 - 199 mg/dL High 200 - 499 mg/dL Very High > or = 500 mg/dL Performed By: #### L 500.4100 ####[facility] [address] [place], [address] CBC-Complete Blood Cnt No Di ffon 10-21-2023 Erythrocyte distribution width (RBC) [Ratio] 13.7 % Normal 11.6-14.6 [facility] Comment on above: Order Comment: 301.2 Performed By: #### L 500.4050, L100.0500 #### [facility] [address] [place], [address] Hematocrit (Bld) [Volume fraction] 32.2 % Low 37-47 [facility] Comment on above: Order Comment: 301.2 Performed By: #### L 500.4050, L100.0500 #### [facility] [address] [place], [address] Hemoglobin (Bld) [Mass/Vol] 10.2 g/dL Low 12.0-15.0 [facility] Comment on above: Order Comment: 301.2 Performed By: #### L 500.4050, L100.0500 #### [facility] [address] [place], [address] MCH (RBC) [Entitic mass] 32.3 pg High 27.0-32.0 [facility] Comment on above: Order Comment: 301.2 Performed By: #### L 500.4050, L100.0500 #### [facility] [address] [place], [address] MCHC (RBC) [Mass/Vol] 31.7 g/dL Low 32-36 [facility] Comment on above: Order Comment: 301.2 Performed By: #### L 500.4050, L100.0500 #### [facility] [address] [place], [address] MCV (RBC) [Entitic vol] 101.9 fL High 81-99 [facility] Comment on above: Order Comment: 301.2 Performed By: #### L 500.4050, L100.0500 #### [facility] [address] [place], [address] Platelet mean volume (Bld) [Entitic vol] 10.0 fL Normal 6.2-12.0 [facility] Comment on above: Order Comment: 301.2 Performed By: #### L 500.4050, L100.0500 #### [facility] [address] [place], [address] Platelets (Bld) [#/Vol] 157 10*3/uL Normal 150-450 [facility] Comment on above: Order Comment: 301.2 Performed By: #### L 500.4050, L100.0500 #### [facility] [address] [place], [address] RBC (Bld) [#/Vol] 3.16 10*6/uL Low 4.2-5.4 [facility] Comment on above: Order Comment: 301.2 Performed By: #### L 500.4050, L100.0500 #### [facility] [address] [place], [address] RDW SD 51.9 fl High 35.1-43.9 [facility] Comment on above: Order Comment: 301.2 Performed By: #### L 500.4050, L100.0500 #### [facility] [address] [place], [address] WBC (Bld) [#/Vol] 4.3 10*3/uL Low 4.4-11.0 [facility] Comment on above: Order Comment: 301.2 Performed By: #### L 500.4050, L100.0500 #### [facility] [address] [place], [address] Comprehensive Metabolic Prof ilon 10-21-2023 Albumin [Mass/Vol] 2.8 g/dL Low 3.2-5.0 [facility] Comment on above: Order Comment: 301.2 Performed By: #### L 500.4050, L100.0500 #### [facility] [address] [place], [address] Albumin/Globulin [Mass ratio] 0.7 {ratio} Low 0.9-2.4 [facility] Comment on above: Order Comment: 301.2 Performed By: #### L 500.4050, L100.0500 #### [facility] [address] [place], [address] ALK P 64 U/L Normal 45-117 [facility] Comment on above: Order Comment: 301.2 Performed By: #### L 500.4050, L100.0500 #### [facility] [address] [place], [address] ALT [Catalytic activity/Vol] 27 U/L Normal 13-56 [facility] Comment on above: Order Comment: 301.2 Performed By: #### L 500.4050, L100.0500 #### [facility] [address] [place], [address] AST [Catalytic activity/Vol] 24 U/L Normal 15-37 [facility] Comment on above: Order Comment: 301.2 Performed By: #### L 500.4050, L100.0500 #### [facility] [address] [place], [address] Bilirubin [Mass/Vol] 0.40 mg/dL Normal 0.20-1.00 [facility] Comment on above: Order Comment: 301.2 Result Comment: For patients on eltrombopag therapy, use of Dimension [place] TBIL is not recommended. Performed By: #### L 500.4050, L100.0500 #### [facility] [address] [place], [address] BUN/CRE 21.2 RATIO High 10-20 [facility] Comment on above: Order Comment: 301.2 Performed By: #### L 500.4050, L100.0500 #### [facility] [address] [place], [address] CA,Total 9.0 mg/dL Normal 8.5-10.1 [facility] Comment on above: Order Comment: 301.2 Performed By: #### L 500.4050, L100.0500 #### [facility] [address] [place], [address] Chloride [Moles/Vol] 108 mmol/L High 98-107 [facility] Comment on above: Order Comment: 301.2 Performed By: #### L 500.4050, L100.0500 #### [facility] [address] [place], [address] CO2 [Moles/Vol] 25.0 mmol/L Normal 21.0-32.0 [facility] Comment on above: Order Comment: 301.2 Performed By: #### L 500.4050, L100.0500 #### [facility] [address] [place], [address] Creatinine [Mass/Vol] 0.85 mg/dL Normal 0.55-1.02 [facility] Comment on above: Order Comment: 301.2 Result Comment: The validity of the calculated GFR GFRAA in patients over 70 years has not been determined. Clinical correlation is essential. Performed By: #### L 500.4050, L100.0500 #### [facility] [address] [place], [address] EST GFR - AA 81 mL/min Normal >60 [facility] Comment on above: Order Comment: 301.2 Result Comment: Afri can [place] GFR Calc Performed By: #### L 500.4050, L100.0500 #### [facility] [address] [place], [address] GAP 7 Normal 5-15 [facility] Comment on above: Order Comment: 301.2 Performed By: #### L 500.4050, L100.0500 #### [facility] [address] [place], [address] GFR/1.73 sq M.predicted among non-blacks MDRD (S/P/Bld) [Vol rate/Area] 67 mL/min/{1.73_m2} Normal >60 [facility] Comment on above: Order Comment: 301.2 Result Comment: Non- GFR Calc Performed By: #### L 500.4050, L100.0500 #### [facility] [address] [place], [address] Globulin (S) [Mass/Vol] 3.9 g/dL Normal 2.2-4.2 [facility] Comment on above: Order Comment: 301.2 Performed By: #### L 500.4050, L100.0500 #### [facility] [address] [place], [address] Glucose [Mass/Vol] 89 mg/dL Normal 74-106 [facility] Comment on above: Order Comment: 301.2 Performed By: #### L 500.4050, L100.0500 #### [facility] [address] [place], [address] Potassium [Moles/Vol] 3.9 mmol/L Normal 3.5-5.1 [facility] Comment on above: Order Comment: 301.2 Performed By: #### L 500.4050, L100.0500 #### [facility] [address] [place], [address] Sodium [Moles/Vol] 140 mmol/L Normal 136-145 [facility] Comment on above: Order Comment: 301.2 Performed By: #### L 500.4050, L100.0500 #### [facility] [address] [place], [address] T PROT 6.7 g/dL Normal 6.4-8.2 [facility] Comment on above: Order Comment: 301.2 Performed By: #### L 500.4050, L100.0500 #### [facility] [address] [place], [address] Urea nitrogen [Mass/Vol] 18 mg/dL Normal 7-18 [facility] Comment on above: Order Comment: 301.2 Performed By: #### L 500.4050, L100.0500 #### [facility] [address] [place], [address] Basic Metabolic Profile (BMP )on 09-16-2023 BUN/CRE 17.2 RATIO Normal 10-20 [facility] Comment on above: Order Comment: 301.2 Performed By: #### L 500.2500, L100.0500 #### [facility] [address] [place], [address] CA,Total 9.0 mg/dL Normal 8.5-10.1 [facility] Comment on above: Order Comment: 301.2 Performed By: #### L 500.2500, L100.0500 #### [facility] [address] [place], [address] Chloride [Moles/Vol] 109 mmol/L High 98-107 [facility] Comment on above: Order Comment: 301.2 Performed By: #### L 500.2500, L100.0500 #### [facility] [address] [place], [address] CO2 [Moles/Vol] 27.0 mmol/L Normal 21.0-32.0 [facility] Comment on above: Order Comment: 301.2 Performed By: #### L 500.2500, L100.0500 #### [facility] [address] [place], [address] Creatinine [Mass/Vol] 0.93 mg/dL Normal 0.55-1.02 [facility] Comment on above: Order Comment: 301.2 Result Comment: The validity of the calculated GFR GFRAA in patients over 70 years has not been determined. Clinical correlation is essential. Performed By: #### L 500.2500, L100.0500 #### [facility] [address] [place], [address] EST GFR - AA 73 mL/min Normal >60 [facility] Comment on above: Order Comment: 301.2 Result Comment: Afri can [place] GFR Calc Performed By: #### L 500.2500, L100.0500 #### [facility] [address] [place], [address] GAP 5 Normal 5-15 [facility] Comment on above: Order Comment: 301.2 Performed By: #### L 500.2500, L100.0500 #### [facility] [address] [place], [address] GFR/1.73 sq M.predicted among non-blacks MDRD (S/P/Bld) [Vol rate/Area] 61 mL/min/{1.73_m2} Normal >60 [facility] Comment on above: Order Comment: 301.2 Result Comment: Non- GFR Calc Performed By: #### L 500.2500, L100.0500 #### [facility] [address] [place], [address] Glucose [Mass/Vol] 84 mg/dL Normal 74-106 [facility] Comment on above: Order Comment: 301.2 Performed By: #### L 500.2500, L100.0500 #### [facility] [address] [place], [address] Potassium [Moles/Vol] 4.1 mmol/L Normal 3.5-5.1 [facility] Comment on above: Order Comment: 301.2 Performed By: #### L 500.2500, L100.0500 #### [facility] [address] [place], [address] Sodium [Moles/Vol] 141 mmol/L Normal 136-145 [facility] Comment on above: Order Comment: 301.2 Performed By: #### L 500.2500, L100.0500 #### [facility] [address] [place], [address] Urea nitrogen [Mass/Vol] 16 mg/dL Normal 7-18 [facility] Comment on above: Order Comment: 301.2 Performed By: #### L 500.2500, L100.0500 #### [facility] [address] [place], [address] CBC-Complete Blood Cnt No Shannan guyon 09-16-2023 Erythrocyte distribution width (RBC) [Ratio] 13.9 % Normal 11.6-14.6 [facility] Comment on above: Order Comment: 301.2 Performed By: #### L 500.2500, L100.0500 #### [facility] [address] [place], [address] Hematocrit (Bld) [Volume fraction] 30.8 % Low 37-47 [facility] Comment on above: Order Comment: 301.2 Performed By: #### L 500.2500, L100.0500 #### [facility] [address] [place], [address] Hemoglobin (Bld) [Mass/Vol] 10.0 g/dL Low 12.0-15.0 [facility] Comment on above: Order Comment: 301.2 Performed By: #### L 500.2500, L100.0500 #### [facility] [address] [place], [address] MCH (RBC) [Entitic mass] 32.2 pg High 27.0-32.0 [facility] Comment on above: Order Comment: 301.2 Performed By: #### L 500.2500, L100.0500 #### [facility] [address] [place], [address] MCHC (RBC) [Mass/Vol] 32.5 g/dL Normal 32-36 [facility] Comment on above: Order Comment: 301.2 Performed By: #### L 500.2500, L100.0500 #### [facility] [address] [place], [address] MCV (RBC) [Entitic vol] 99.0 fL Normal 81-99 [facility] Comment on above: Order Comment: 301.2 Performed By: #### L 500.2500, L100.0500 #### [facility] [address] [place], [address] Platelet mean volume (Bld) [Entitic vol] 9.6 fL Normal 6.2-12.0 [facility] Comment on above: Order Comment: 301.2 Performed By: #### L 500.2500, L100.0500 #### [facility] [address] [place], [address] Platelets (Bld) [#/Vol] 200 10*3/uL Normal 150-450 [facility] Comment on above: Order Comment: 301.2 Performed By: #### L 500.2500, L100.0500 #### [facility] [address] [place], [address] RBC (Bld) [#/Vol] 3.11 10*6/uL Low 4.2-5.4 [facility] Comment on above: Order Comment: 301.2 Performed By: #### L 500.2500, L100.0500 #### [facility] [address] [place], [address] RDW SD 50.5 fl High 35.1-43.9 [facility] Comment on above: Order Comment: 301.2 Performed By: #### L 500.2500, L100.0500 #### [facility] [address] [place], [address] WBC (Bld) [#/Vol] 5.3 10*3/uL Normal 4.4-11.0 [facility] Comment on above: Order Comment: 301.2 Performed By: #### L 500.2500, L100.0500 #### [facility] [address] [place], [address] Renal Profileon 09-02-2023 Albumin [Mass/Vol] 2.7 g/dL Low 3.2-5.0 [facility] Comment on above: Order Comment: 301-2 Performed By: #### L 501.080 #### [facility] [address] [place], [address] BUN/CRE 21.0 RATIO High 10-20 [facility] Comment on above: Order Comment: 301-2 Performed By: #### L 501.080 #### [facility] [address] [place], [address] CA,Total 8.9 mg/dL Normal 8.5-10.1 [facility] Comment on above: Order Comment: 301-2 Performed By: #### L 501.080 #### [facility] [address] [place], [address] Chloride [Moles/Vol] 108 mmol/L High 98-107 [facility] Comment on above: Order Comment: 301-2 Performed By: #### L 501.080 #### [facility] [address] [place], [address] CO2 [Moles/Vol] 30.0 mmol/L Normal 21.0-32.0 [facility] Comment on above: Order Comment: 301-2 Performed By: #### L 501.080 #### [facility] [address] [place], [address] Creatinine [Mass/Vol] 1.00 mg/dL Normal 0.55-1.02 [facility] Comment on above: Order Comment: 301-2 Result Comment: The validity of the calculated GFR GFRAA in patients over 70 years has not been determined. Clinical correlation is essential. Performed By: #### L 501.080 #### [facility] [address] [place], [address] EST GFR - AA 67 mL/min Normal >60 [facility] Comment on above: Order Comment: 301-2 Result Comment: Afri can [place] GFR Calc Performed By: #### L 501.080 #### [facility] [address] [place], [address] GFR/1.73 sq M.predicted among non-blacks MDRD (S/P/Bld) [Vol rate/Area] 56 mL/min/{1.73_m2} Low >60 [facility] Comment on above: Order Comment: 301-2 Result Comment: Non- GFR Calc Performed By: #### L 501.080 #### [facility] [address] [place], [address] Glucose [Mass/Vol] 70 mg/dL Low 74-106 [facility] Comment on above: Order Comment: 301-2 Performed By: #### L 501.080 #### [facility] [address] [place], [address] Phosphate [Mass/Vol] 3.6 mg/dL Normal 2.5-4.9 [facility] Comment on above: Order Comment: 301-2 Performed By: #### L 501.080 #### [facility] [address] [place], [address] Potassium [Moles/Vol] 4.0 mmol/L Normal 3.5-5.1 [facility] Comment on above: Order Comment: 301-2 Performed By: #### L 501.080 #### [facility] [address] [place], [address] Sodium [Moles/Vol] 142 mmol/L Normal 136-145 [facility] Comment on above: Order Comment: 301-2 Performed By: #### L 501.080 #### [facility] [address] [place], [address] Urea nitrogen [Mass/Vol] 21 mg/dL High 7-18 [facility] Comment on above: Order Comment: 301-2 Performed By: #### L 501.080 #### [facility] [address] [place], [address] Basophil percentageOrdered B y: Kam Ocampo on 04-15-2023 Chloride [Moles/Vol] 107 mmol/L 98-107 [facility] Glucose [Mass/Vol] 86 mg/dL 74-106 [facility] Potassium [Moles/Vol] 3.9 mmol/L 3.5-5.1 [facility] Sodium [Moles/Vol] 143 mmol/L 136-145 [facility] - Chemistry and C hemistry - challengeOrdered By: Kam Ocampo on 04-15-2023 CO2 [Moles/Vol] 32.0 mmol/L 21.0-32.0 [facility] Urea nitrogen/Creatinine [Mass ratio] 20.3 mg/mg 10-20 [facility] No Panel InformationOrdered By: Kam Ocampo on 04-15-2023 Estimated GFR (MDRD) Amer 78 mL/min >60 [facility] Comment on above: GFR Calc Estimated GFR (MDRD) Non-Af Amer 64 mL/min >60 [facility] Comment on above: Non- GFR Calc Serum or plasma calcium светлана urement (mass/volume)Ordered By: Kam Ocampo on 04-15-2023 Calcium [Mass/Vol] 8.5 mg/dL 8.5-10.1 [facility] Serum or plasma creatinine m easurement (mass/volume)Ordered By: Kam Ocampo on 04-15-2023 Creatinine [Mass/Vol] 0.89 mg/dL 0.55-1.02 [facility] Comment on above: The validity of the calculated GFR & GFRAA in patients over 70 years has not been determined. Clinical correlation is essential. Serum or plasma urea nitroge n measurement (mass/volume)Ordered By: Kam Ocampo on 04-15-2023 Urea nitrogen [Mass/Vol] 18 mg/dL 7-18 [facility] Thin prep Papanicolaou smear with manual screeningOrdered By: Kam Ocampo on 04-15-2023 Thin prep Papanicolaou smear with manual screening 4 5-15 [facility] [place] [facility] Basophil percentageOrdered B y: Kam Ocampo on 03-11-2023 Bilirubin [Mass/Vol] 0.30 mg/dL 0.20-1.00 [facility] Comment on above: For patients on eltr ombopag therapy, use of Dimension [place] TBIL is not recommended. Chloride [Moles/Vol] 104 mmol/L 98-107 [facility] Glucose [Mass/Vol] 102 mg/dL 74-106 [facility] Comment on above: Fasting Glucose resu lt from 100 to 125 mg/dL suggests IMPAIRED HOMEOSTASIS per A.D.A. criteria. Hemoglobin (Bld) [Mass/Vol] 10.4 g/dL 12.0-15.0 [facility] Potassium [Moles/Vol] 4.1 mmol/L 3.5-5.1 [facility] Protein [Mass/Vol] 6.5 g/dL 6.4-8.2 [facility] Sodium [Moles/Vol] 140 mmol/L 136-145 [facility] WBC (Bld) [#/Vol] 4.9 10*3/uL 4.4-11.0 [facility] Determination of erythrocyte mean corpuscular volume (MCV)Ordered By: Kam Ocampo on 03-11-2023 MCV (RBC) [Entitic vol] 103.0 fL 81-99 [facility] Erythrocyte distribution wid th ratioOrdered By: Kam Ocampo on 03-11-2023 Erythrocyte distribution width (RBC) [Ratio] 14.4 % 11.6-14.6 [facility] Erythrocyte distribution wid th standard deviationOrdered By: Kam Ocampo on 03-11-2023 Erythrocyte distribution width (RBC) [Entitic vol] 54.2 fL 35.1-43.9 [facility] Hematocrit Auto (Bld) [Volum e fraction]Ordered By: Kam Ocampo on 03-11-2023 Hematocrit (Bld) [Volume fraction] 34.2 % 37-47 [facility] - Chemistry and C hemistry - challengeOrdered By: Kma Ocampo on 03-11-2023 Albumin/Globulin [Mass ratio] 0.6 {ratio} 0.9-2.4 [facility] ALP [Catalytic activity/Vol] 62 U/L 45-117 [facility] ALT [Catalytic activity/Vol] 27 U/L 13-56 [facility] CO2 [Moles/Vol] 33.0 mmol/L 21.0-32.0 [facility] Globulin (S) [Mass/Vol] 4.0 g/dL 2.2-4.2 [facility] Urea nitrogen/Creatinine [Mass ratio] 21.7 mg/mg 10-20 [facility] - Hematology and Cell countsOrdered By: Kam Ocampo on 03-11-2023 MCH (RBC) [Entitic mass] 31.3 pg 27.0-32.0 [facility] MCHC (RBC) [Mass/Vol] 30.4 g/dL 32-36 [facility] Platelets (Bld) [#/Vol] 169 10*3/uL 150-450 [facility] No Panel InformationOrdered By: Kam Ocampo on 03-11-2023 Estimated GFR (MDRD) Amer 79 mL/min >60 [facility] Comment on above: GFR Calc Estimated GFR (MDRD) Non-Af Amer 65 mL/min >60 [facility] Comment on above: Non- GFR Calc Platelet mean volume [place]en-Ec ker (Bld) [Entitic vol]Ordered By: Kam Ocampo on 03-11-2023 Platelet mean volume (Bld) [Entitic vol] 9.4 fL 6.2-12.0 [facility] RBC Auto (Bld) [#/Vol]Ordere d By: Kam Ocampo on 03-11-2023 RBC (Bld) [#/Vol] 3.32 10*6/uL 4.2-5.4 [facility] Serum or plasma calcium светлана urement (mass/volume)Ordered By: Kam Ocampo on 03-11-2023 Calcium [Mass/Vol] 9.5 mg/dL 8.5-10.1 [facility] Serum or plasma creatinine m easurement (mass/volume)Ordered By: Kam Ocampo on 03-11-2023 Creatinine [Mass/Vol] 0.88 mg/dL 0.55-1.02 [facility] Comment on above: The validity of the calculated GFR & GFRAA in patients over 70 years has not been determined. Clinical correlation is essential. Serum or plasma urea nitroge n measurement (mass/volume)Ordered By: Kam Ocampo on 03-11-2023 Urea nitrogen [Mass/Vol] 19 mg/dL 7-18 [facility] Thin prep Papanicolaou smear with manual screeningOrdered By: Kam Ocampo on 03-11-2023 Thin prep Papanicolaou smear with manual screening 2.5 g/dL 3.2-5.0 [facility] Thin prep Papanicolaou smear with manual screening 19 U/L 15-37 [facility] Thin prep Papanicolaou smear with manual screening 3 5-15 [facility] Basophil percentageOrdered B y: Kam Ocampo on 02-19-2023 Chloride [Moles/Vol] 105 mmol/L 98-107 [facility] Glucose [Mass/Vol] 117 mg/dL 74-106 [facility] Comment on above: Fasting Glucose resu lt from 100 to 125 mg/dL suggests IMPAIRED HOMEOSTASIS per A.D.A. criteria. Potassium [Moles/Vol] 4.7 mmol/L 3.5-5.1 [facility] Sodium [Moles/Vol] 139 mmol/L 136-145 [facility] WBC (Bld) [#/Vol] 4.1 10*3/uL 4.4-11.0 [facility] Blood erythrocytes count (nu mber/volume)Ordered By: Kam Ocampo on 02-19-2023 RBC (Bld) [#/Vol] 3.55 10*6/uL 4.2-5.4 [facility] Blood hemoglobin measurement (mass/volume)Ordered By: Kam Ocampo on 02-19-2023 Hemoglobin (Bld) [Mass/Vol] 11.5 g/dL 12.0-15.0 [facility] Blood platelet mean volumeOr dered By: Kam Ocampo on 02-19-2023 Platelet mean volume (Bld) [Entitic vol] 9.3 fL 6.2-12.0 [facility] Determination of erythrocyte mean corpuscular volume (MCV)Ordered By: Kam Ocampo on 02-19-2023 MCV (RBC) [Entitic vol] 100.6 fL 81-99 [facility] Hematocrit Auto (Bld) [Volum e fraction]Ordered By: Kam Ocampo on 02-19-2023 Hematocrit (Bld) [Volume fraction] 35.7 % 37-47 [facility] Laboratory - Chemistry and C hemistry - challengeOrdered By: Kam Ocampo on 02-19-2023 CO2 [Moles/Vol] 29.0 mmol/L 21.0-32.0 [facility] Urea nitrogen/Creatinine [Mass ratio] 23.7 mg/mg 10-20 [facility] Laboratory - Hematology and Cell countsOrdered By: Kam Ocampo on 02-19-2023 Erythrocyte distribution width (RBC) [Entitic vol] 50.7 fL 35.1-43.9 [facility] Erythrocyte distribution width (RBC) [Ratio] 13.6 % 11.6-14.6 [facility] MCH (RBC) [Entitic mass] 32.4 pg 27.0-32.0 [facility] MCHC Auto (RBC) [Mass/Vol]Or dered By: Kam Ocampo on 02-19-2023 MCHC (RBC) [Mass/Vol] 32.2 g/dL 32-36 [facility] No Panel InformationOrdered By: Kam Ocampo on 02-19-2023 Estimated GFR (MDRD) Amer 78 mL/min >60 [facility] Comment on above: GFR Calc Estimated GFR (MDRD) Non-Af Amer 64 mL/min >60 [facility] Comment on above: Non- GFR Calc Platelets bldOrdered By: Aline Ocampo on 02-19-2023 Platelets (Bld) [#/Vol] 173 10*3/uL 150-450 [facility] Respiratory pathogens DNA an d RNA panel ALTHEA+probe (Resp)Ordered By: Kam Ocampo on 02-19-2023 Respiratory Panel (PCR) RSV B [facility] Respiratory Panel (PCR) RSV B [facility] Serum or plasma calcium светлана urement (mass/volume)Ordered By: Kam Ocampo on 02-19-2023 Calcium [Mass/Vol] 8.4 mg/dL 8.5-10.1 [facility] Serum or plasma creatinine m easurement (mass/volume)Ordered By: Kam Ocampo on 02-19-2023 Creatinine [Mass/Vol] 0.89 mg/dL 0.55-1.02 [facility] Comment on above: The validity of the calculated GFR & GFRAA in patients over 70 years has not been determined. Clinical correlation is essential. Serum or plasma urea nitroge n measurement (mass/volume)Ordered By: Kam Ocampo on 02-19-2023 Urea nitrogen [Mass/Vol] 21 mg/dL 7-18 [facility] Thin prep Papanicolaou smear with manual screeningOrdered By: Kam Ocampo on 02-19-2023 Thin prep Papanicolaou smear with manual screening 5 5-15 [facility] Basophil percentageOrdered B y: Kam Ocampo on 02-10-2023 WBC (Bld) [#/Vol] 4.7 10*3/uL 4.4-11.0 [facility] Blood erythrocytes count (nu mber/volume)Ordered By: Kam Ocampo on 02-10-2023 RBC (Bld) [#/Vol] 3.25 10*6/uL 4.2-5.4 [facility] Blood hemoglobin measurement (mass/volume)Ordered By: Kam Ocampo on 02-10-2023 Hemoglobin (Bld) [Mass/Vol] 10.9 g/dL 12.0-15.0 [facility] Blood platelet mean volumeOr dered By: Kam Ocampo on 02-10-2023 Platelet mean volume (Bld) [Entitic vol] 9.2 fL 6.2-12.0 [facility] Determination of erythrocyte mean corpuscular volume (MCV)Ordered By: Kam Ocampo on 02-10-2023 MCV (RBC) [Entitic vol] 103.4 fL 81-99 [facility] Hematocrit Auto (Bld) [Volum e fraction]Ordered By: Kam Ocampo on 02-10-2023 Hematocrit (Bld) [Volume fraction] 33.6 % 37-47 [facility] Laboratory - Hematology and Cell countsOrdered By: Kam Ocampo on 02-10-2023 Erythrocyte distribution width (RBC) [Entitic vol] 53.1 fL 35.1-43.9 [facility] Erythrocyte distribution width (RBC) [Ratio] 13.9 % 11.6-14.6 [facility] MCH (RBC) [Entitic mass] 33.5 pg 27.0-32.0 [facility] MCHC Auto (RBC) [Mass/Vol]Or dered By: Kam Ocampo on 02-10-2023 MCHC (RBC) [Mass/Vol] 32.4 g/dL 32-36 [facility] Platelets bldOrdered By: Aline Ocampo on 02-10-2023 Platelets (Bld) [#/Vol] 227 10*3/uL 150-450 [facility] Basophil percentageOrdered B y: Kam Ocampo on 01-27-2023 Bilirubin [Mass/Vol] 0.30 mg/dL 0.20-1.00 [facility] Comment on above: For patients on eltr ombopag therapy, use of Dimension [place] TBIL is not recommended. Chloride [Moles/Vol] 109 mmol/L 98-107 [facility] Glucose [Mass/Vol] 77 mg/dL 74-106 [facility] Potassium [Moles/Vol] 4.2 mmol/L 3.5-5.1 [facility] Protein [Mass/Vol] 6.2 g/dL 6.4-8.2 [facility] Sodium [Moles/Vol] 142 mmol/L 136-145 [facility] WBC (Bld) [#/Vol] 5.6 10*3/uL 4.4-11.0 [facility] Blood erythrocytes count (nu mber/volume)Ordered By: Kam Ocampo on 01-27-2023 RBC (Bld) [#/Vol] 3.10 10*6/uL 4.2-5.4 [facility] Blood hemoglobin measurement (mass/volume)Ordered By: Kam cOampo on 01-27-2023 Hemoglobin (Bld) [Mass/Vol] 10.1 g/dL 12.0-15.0 [facility] Blood platelet mean volumeOr dered By: Kam Ocampo on 01-27-2023 Platelet mean volume (Bld) [Entitic vol] 9.2 fL 6.2-12.0 [facility] Determination of erythrocyte mean corpuscular volume (MCV)Ordered By: Kam Ocampo on 01-27-2023 MCV (RBC) [Entitic vol] 103.9 fL 81-99 [facility] Hematocrit Auto (Bld) [Volum e fraction]Ordered By: Kam Ocampo on 01-27-2023 Hematocrit (Bld) [Volume fraction] 32.2 % 37-47 [facility] Laboratory - Chemistry and C hemistry - challengeOrdered By: Kam Ocampo on 01-27-2023 ALP [Catalytic activity/Vol] 66 U/L 45-117 [facility] ALT [Catalytic activity/Vol] 29 U/L 13-56 [facility] CO2 [Moles/Vol] 30.0 mmol/L 21.0-32.0 [facility] Globulin (S) [Mass/Vol] 3.8 g/dL 2.2-4.2 [facility] Urea nitrogen/Creatinine [Mass ratio] 21.9 mg/mg 10-20 [facility] Laboratory - Hematology and Cell countsOrdered By: Kam Ocampo on 01-27-2023 Erythrocyte distribution width (RBC) [Entitic vol] 54.4 fL 35.1-43.9 [facility] Erythrocyte distribution width (RBC) [Ratio] 14.4 % 11.6-14.6 [facility] MCH (RBC) [Entitic mass] 32.6 pg 27.0-32.0 [facility] MCHC Auto (RBC) [Mass/Vol]Or dered By: Kam Ocampo on 01-27-2023 MCHC (RBC) [Mass/Vol] 31.4 g/dL 32-36 [facility] No Panel InformationOrdered By: Kam Ocampo on 01-27-2023 Estimated GFR (MDRD) Amer 75 mL/min >60 [facility] Comment on above: GFR Calc Estimated GFR (MDRD) Non-Af Amer 62 mL/min >60 [facility] Comment on above: Non- GFR Calc Platelets bldOrdered By: Aline Ocampo on 01-27-2023 Platelets (Bld) [#/Vol] 168 10*3/uL 150-450 [facility] Serum or plasma albumin светлана urement (mass/volume)Ordered By: Kam Ocampo on 01-27-2023 Albumin [Mass/Vol] 2.4 g/dL 3.2-5.0 [facility] Serum or plasma albumin/glob ulin mass ratioOrdered By: Kam Ocampo on 01-27-2023 Albumin/Globulin [Mass ratio] 0.6 {ratio} 0.9-2.4 [facility] Serum or plasma calcium светлана urement (mass/volume)Ordered By: Kam Ocampo on 01-27-2023 Calcium [Mass/Vol] 8.5 mg/dL 8.5-10.1 [facility] Serum or plasma creatinine m easurement (mass/volume)Ordered By: Kam Ocampo on 01-27-2023 Creatinine [Mass/Vol] 0.92 mg/dL 0.55-1.02 [facility] Comment on above: The validity of the calculated GFR & GFRAA in patients over 70 years has not been determined. Clinical correlation is essential. Serum or plasma urea nitroge n measurement (mass/volume)Ordered By: Kam Ocampo on 01-27-2023 Urea nitrogen [Mass/Vol] 20 mg/dL 7-18 [facility] Thin prep Papanicolaou smear with manual screeningOrdered By: Kam Ocampo on 01-27-2023 Thin prep Papanicolaou smear with manual screening 18 U/L 15-37 [facility] Thin prep Papanicolaou smear with manual screening 3 5-15 [facility] Acid fast bacilli (AFB) cult ureOrdered By: Kam Ocampo on 12-02-2022 Mycobacterium sp identified Org specific cx Nom (Unsp spec) [facility] Thin prep Papanicolaou smear with manual screeningOrdered By: Kam Ocampo on 12-02-2022 Thin prep Papanicolaou smear with manual screening [facility] Acid fast bacilli (AFB) cult ureOrdered By: Kam Ocampo on 12-01-2022 Mycobacterium sp identified Org specific cx Nom (Unsp spec) [facility] Bacteria identified Respirat ory culture Nom (Unsp spec)Ordered By: Kam Ocampo on 12-01-2022 Respiratory Culture Diane albicans [facility] Gram stain for investigation of transfusion reactionOrdered By: Kam Ocampo on 12-01-2022 Microscopic observation Gram stain Nom (Unsp spec) [facility] Thin prep Papanicolaou smear with manual screeningOrdered By: Kam Ocampo on 12-01-2022 Thin prep Papanicolaou smear with manual screening [facility] Acid fast bacilli (AFB) cult ureOrdered By: Kam Ocampo on 11-28-2022 Mycobacterium sp identified Org specific cx Nom (Unsp spec) [facility] Qualitative QuantiFERON-TB g old in tube testOrdered By: Kam Ocampo on 11-28-2022 M. tuberculosis tuberculin stim IFN-g Ql (Bld) 0.09 IU/mL . [facility] Thin prep Papanicolaou smear with manual screeningOrdered By: Kam Ocampo on 11-28-2022 Thin prep Papanicolaou smear with manual screening [facility] Thin prep Papanicolaou smear with manual screening Comment . [facility] Comment on above: QuantiFERON-TB Gold Plus is [...] smear with manual screening 0.08 IU/mL . [facility] Thin prep Papanicolaou smear with manual screening 0.09 IU/mL . [facility] Thin prep Papanicolaou smear with manual screening > 10.00 IU/mL . [facility] Thin prep Papanicolaou smear with manual screening Negative Negative [facility] Comment on above: No response to M [...] the productionof interferon gamma. Chemiluminescence immunoassaymethodologyPerformed at: [employer] [facility] [id number] Director: Radu Leal PhD, Phone: [phone] Basophil percentageOrdered B y: Kam Ocampo on 11-10-2022 Bilirubin [Mass/Vol] 0.50 mg/dL 0.20-1.00 [facility] Comment on above: For patients on eltr ombopag therapy, use of Dimension [place] TBIL is not recommended. Chloride [Moles/Vol] 105 mmol/L 98-107 [facility] Glucose [Mass/Vol] 88 mg/dL 74-106 [facility] Potassium [Moles/Vol] 4.5 mmol/L 3.5-5.1 [facility] Protein [Mass/Vol] 6.9 g/dL 6.4-8.2 [facility] Sodium [Moles/Vol] 141 mmol/L 136-145 [facility] WBC (Bld) [#/Vol] 9.3 10*3/uL 4.4-11.0 [facility] Blood erythrocytes count (nu mber/volume)Ordered By: Kam Ocampo on 11-10-2022 RBC (Bld) [#/Vol] 3.43 10*6/uL 4.2-5.4 [facility] Blood hemoglobin measurement (mass/volume)Ordered By: Kam Ocampo on 11-10-2022 Hemoglobin (Bld) [Mass/Vol] 11.3 g/dL 12.0-15.0 [facility] Blood platelet mean volumeOr dered By: Kam Ocampo on 11-10-2022 Platelet mean volume (Bld) [Entitic vol] 9.8 fL 6.2-12.0 [facility] Determination of erythrocyte mean corpuscular volume (MCV)Ordered By: Kam Ocampo on 11-10-2022 MCV (RBC) [Entitic vol] 107.3 fL 81-99 [facility] Comment on above: Delta: 101.3 on 10/11 10/01-1730 Hematocrit Auto (Bld) [Volum e fraction]Ordered By: Kam Ocampo on 11-10-2022 Hematocrit (Bld) [Volume fraction] 36.8 % 37-47 [facility] Laboratory - Chemistry and C hemistry - challengeOrdered By: Kam Ocampo on 11-10-2022 ALP [Catalytic activity/Vol] 68 U/L 45-117 [facility] ALT [Catalytic activity/Vol] 27 U/L 13-56 [facility] CO2 [Moles/Vol] 35.0 mmol/L 21.0-32.0 [facility] Globulin (S) [Mass/Vol] 4.0 g/dL 2.2-4.2 [facility] Urea nitrogen/Creatinine [Mass ratio] 28.0 mg/mg 10-20 [facility] Laboratory - Hematology and Cell countsOrdered By: Kam Ocampo on 11-10-2022 Erythrocyte distribution width (RBC) [Entitic vol] 56.2 fL 35.1-43.9 [facility] Erythrocyte distribution width (RBC) [Ratio] 14.5 % 11.6-14.6 [facility] MCH (RBC) [Entitic mass] 32.9 pg 27.0-32.0 [facility] MCHC Auto (RBC) [Mass/Vol]Or dered By: Kam Ocampo on 11-10-2022 MCHC (RBC) [Mass/Vol] 30.7 g/dL 32-36 [facility] Comment on above: Delta: 32.8 on 11/0623-1730 No Panel InformationOrdered By: Kam Ocampo on 11-10-2022 Estimated GFR (MDRD) Amer 56 mL/min >60 [facility] Comment on above: GFR Calc Estimated GFR (MDRD) Non-Af Amer 46 mL/min >60 [facility] Comment on above: Non- GFR Calc Platelets bldOrdered By: Aline Ocampo on 11-10-2022 Platelets (Bld) [#/Vol] 225 10*3/uL 150-450 [facility] Serum or plasma albumin светлана urement (mass/volume)Ordered By: Kam Ocampo on 11-10-2022 Albumin [Mass/Vol] 2.9 g/dL 3.2-5.0 [facility] Serum or plasma albumin/glob ulin mass ratioOrdered By: Kam Ocampo on 11-10-2022 Albumin/Globulin [Mass ratio] 0.7 {ratio} 0.9-2.4 [facility] Serum or plasma calcium светлана urement (mass/volume)Ordered By: Kam Ocampo on 11-10-2022 Calcium [Mass/Vol] 9.6 mg/dL 8.5-10.1 [facility] Serum or plasma creatinine m easurement (mass/volume)Ordered By: Kam Ocampo on 11-10-2022 Creatinine [Mass/Vol] 1.18 mg/dL 0.55-1.02 [facility] Comment on above: The validity of the calculated GFR & GFRAA in patients over 70 years has not been determined. Clinical correlation is essential. Serum or plasma urea nitroge n measurement (mass/volume)Ordered By: Kam Ocampo on 11-10-2022 Urea nitrogen [Mass/Vol] 33 mg/dL 7-18 [facility] Thin prep Papanicolaou smear with manual screeningOrdered By: Kam Ocampo on 11-10-2022 Thin prep Papanicolaou smear with manual screening 19 U/L 15-37 [facility] Thin prep Papanicolaou smear with manual screening 1 5-15 [facility] Absolute lymphocyte countOrd ered By: Yandel Matute on 11-06-2022 Lymphocytes Auto (Unsp spec) [#/Vol] 2.18 10*3/uL 0.83-4.51 [facility] Basophil percentageOrdered B y: Yandel Matute on 11-06-2022 Basophil percentage 0-5 SEEN /hpf 0-5 [facility] Basophils/100 WBC (Bld) 0.4 % 0-1 [facility] Chloride [Moles/Vol] 102 mmol/L 98-107 [facility] Eosinophils/100 WBC (Bld) 1.6 % 0-5 [facility] Glucose [Mass/Vol] 99 mg/dL 74-106 [facility] Neutrophils (Bld) [#/Vol] 4.5 10*3/uL 2.0-7.7 [facility] Neutrophils/100 WBC (Bld) 60.8 % 47-70 [facility] Potassium [Moles/Vol] 4.2 mmol/L 3.5-5.1 [facility] Sodium [Moles/Vol] 137 mmol/L 136-145 [facility] WBC (Bld) [#/Vol] 7.4 10*3/uL 4.4-11.0 [facility] Basophil percentageOrdered B y: Kam Ocampo on 11-06-2022 Basophil percentage >100 SEEN /hpf 0-5 [facility] Bilirubin [Mass/Vol] 0.50 mg/dL 0.20-1.00 [facility] Comment on above: For patients on eltr ombopag therapy, use of Dimension [place] TBIL is not recommended. Chloride [Moles/Vol] 104 mmol/L 98-107 [facility] Glucose [Mass/Vol] 123 mg/dL 74-106 [facility] Comment on above: Fasting Glucose resu lt from 100 to 125 mg/dL suggests IMPAIRED HOMEOSTASIS per A.D.A. criteria. Potassium [Moles/Vol] 4.1 mmol/L 3.5-5.1 [facility] Protein [Mass/Vol] 7.8 g/dL 6.4-8.2 [facility] Sodium [Moles/Vol] 142 mmol/L 136-145 [facility] WBC (Bld) [#/Vol] 7.6 10*3/uL 4.4-11.0 [facility] Bilirubin Test strip Ql (U)O rdered By: Yandel Matute on 11-06-2022 Bilirubin Ql (U) Negative Negative [facility] Bilirubin Test strip Ql (U)O rdered By: Kam Ocampo on 11-06-2022 Bilirubin Ql (U) Negative Negative [facility] Blood erythrocytes count (nu mber/volume)Ordered By: Yandel Matute on 11-06-2022 RBC (Bld) [#/Vol] 3.19 10*6/uL 4.2-5.4 [facility] Blood erythrocytes count (nu mber/volume)Ordered By: Kam Ocampo on 11-06-2022 RBC (Bld) [#/Vol] 3.43 10*6/uL 4.2-5.4 [facility] Blood hemoglobin measurement (mass/volume)Ordered By: Yandel Matute on 11-06-2022 Hemoglobin (Bld) [Mass/Vol] 10.6 g/dL 12.0-15.0 [facility] Blood hemoglobin measurement (mass/volume)Ordered By: Kam Ocampo on 11-06-2022 Hemoglobin (Bld) [Mass/Vol] 11.4 g/dL 12.0-15.0 [facility] Blood lymphocytes/100 leukoc ytesOrdered By: Yandel Matute on 11-06-2022 Lymphocytes/100 WBC (Bld) 29.3 % 19-41 [facility] Blood monocytes/100 leukocyt esOrdered By: Yandel Matute on 11-06-2022 Monocytes/100 WBC (Bld) 7.4 % 0-10 [facility] Blood platelet mean volumeOr dered By: Yandel Matute on 11-06-2022 Platelet mean volume (Bld) [Entitic vol] 9.6 fL 6.2-12.0 [facility] Blood platelet mean volumeOr dered By: Kam Ocampo on 11-06-2022 Platelet mean volume (Bld) [Entitic vol] 9.3 fL 6.2-12.0 [facility] Culture, urineOrdered By: Dugan on 11-06-2022 Bacteria identified Cx Nom (U) Escherichia coli [facility] Bacteria identified Cx Nom (U) Escherichia coli [facility] Determination of erythrocyte mean corpuscular volume (MCV)Ordered By: Yandel Matute on 11-06-2022 MCV (RBC) [Entitic vol] 101.3 fL 81-99 [facility] Determination of erythrocyte mean corpuscular volume (MCV)Ordered By: Kam Ocampo on 11-06-2022 MCV (RBC) [Entitic vol] 102.0 fL 81-99 [facility] Hematocrit Auto (Bld) [Volum e fraction]Ordered By: Yandel Matute on 11-06-2022 Hematocrit (Bld) [Volume fraction] 32.3 % 37-47 [facility] Hematocrit Auto (Bld) [Volum e fraction]Ordered By: Kam Ocampo on 11-06-2022 Hematocrit (Bld) [Volume fraction] 35.0 % 37-47 [facility] INR in Blood by Coagulation assayOrdered By: Yandel Matute on 11-06-2022 INR Coag (Bld) [Relative time] 1.0 {INR} [facility] Ketones Test strip Ql (U)Ord ered By: Yandel Matute on 11-06-2022 Ketones Ql (U) Negative Negative [facility] Ketones Test strip Ql (U)Ord ered By: Kam Ocampo on 11-06-2022 Ketones Ql (U) Negative Negative [facility] Laboratory - Chemistry and C hemistry - challengeOrdered By: Yandel Matute on 11-06-2022 CO2 [Moles/Vol] 34.0 mmol/L 21.0-32.0 [facility] Urea nitrogen/Creatinine [Mass ratio] 23.9 mg/mg 11-28 [facility] Laboratory - Chemistry and C hemistry - challengeOrdered By: Kam Ocampo on 11-06-2022 ALP [Catalytic activity/Vol] 78 U/L 45-117 [facility] ALT [Catalytic activity/Vol] 33 U/L 13-56 [facility] CO2 [Moles/Vol] 35.0 mmol/L 21.0-32.0 [facility] Globulin (S) [Mass/Vol] 4.6 g/dL 2.2-4.2 [facility] Urea nitrogen/Creatinine [Mass ratio] 21.0 mg/mg 11-28 [facility] Laboratory - CoagulationOrde red By: Yandel Matute on 11-06-2022 aPTT Coag (Bld) [Time] 25.3 s 24.1-36.2 [facility] PT Coag (PPP) [Time] 13.1 s 11.7-14.9 [facility] Laboratory - Hematology and Cell countsOrdered By: Yandel Matute on 11-06-2022 Erythrocyte distribution width (RBC) [Entitic vol] 50.0 fL 35.1-43.9 [facility] Erythrocyte distribution width (RBC) [Ratio] 13.6 % 11.6-14.6 [facility] Immature granulocytes/100 WBC (Bld) 0.500 % 0.0-0.9 [facility] Comment on above: IG% - Immature Granu locytes (promyelocytes, myelocytes and metamyelocytes) > 1% indicates that a LEFT SHIFT is Present. MCH (RBC) [Entitic mass] 33.2 pg 27.0-32.0 [facility] Nucleated RBC/100 WBC (Bld) [Ratio] 0 % 0-5 [facility] Laboratory - Hematology and Cell countsOrdered By: Kam Ocampo on 11-06-2022 Erythrocyte distribution width (RBC) [Entitic vol] 51.1 fL 35.1-43.9 [facility] Erythrocyte distribution width (RBC) [Ratio] 13.7 % 11.6-14.6 [facility] MCH (RBC) [Entitic mass] 33.2 pg 27.0-32.0 [facility] MCHC Auto (RBC) [Mass/Vol]Or dered By: Yandel Matute on 11-06-2022 MCHC (RBC) [Mass/Vol] 32.8 g/dL - [facility] MCHC Auto (RBC) [Mass/Vol]Or dered By: Kam Ocampo on 11-06-2022 MCHC (RBC) [Mass/Vol] 32.6 g/dL 32-36 [facility] Mucus LM Ql (Urine sed)Order ed By: Yandel Matute on 11-06-2022 Mucus Ql (Urine sed) 0 SEEN /hpf [facility] Mucus LM Ql (Urine sed)Order ed By: Kam Ocampo on 11-06-2022 Mucus Ql (Urine sed) 0 SEEN /hpf [facility] Nitrite Test strip Ql (U)Ord ered By: Yandel Matute on 11-06-2022 Nitrite Ql (U) Negative Negative [facility] Nitrite Test strip Ql (U)Ord ered By: Kam Ocampo on 11-06-2022 Nitrite Ql (U) Negative Negative [facility] No Panel InformationOrdered By: Yandel Matute on 11-06-2022 Estimated Creatinine Clearance Calc 32.96 ml/min [facility] Estimated GFR (MDRD) Amer 78 mL/min >60 [facility] Comment on above: GFR Calc Estimated GFR (MDRD) Non-Af Amer 65 mL/min >60 [facility] Comment on above: Non- GFR Calc Troponin I High Sensitivity 6 pg/mL 3.0-54.0 [facility] Comment on above: Please Note: New Regi t Units and Gender Specific Reference Ranges. For more information see Policy Stat Procedure [place] High Sensitivity Troponin (TNIH) and attachments. No Panel InformationOrdered By: Kam Ocampo on 11-06-2022 Estimated GFR (MDRD) Amer 81 mL/min >60 [facility] Comment on above: GFR Calc Estimated GFR (MDRD) Non-Af Amer 67 mL/min >60 [facility] Comment on above: Non- GFR Calc Platelets bldOrdered By: Mehdi Matute on 11-06-2022 Platelets (Bld) [#/Vol] 240 10*3/uL 150-450 [facility] Platelets bldOrdered By: Aline Ocampo on 11-06-2022 Platelets (Bld) [#/Vol] 242 10*3/uL 150-450 [facility] Protein Test strip Ql (U)Ord ered By: Yandel Matute on 11-06-2022 Protein Ql (U) Negative Negative [facility] Protein Test strip Ql (U)Ord ered By: Kam Ocampo on 11-06-2022 Protein Ql (U) Negative Negative [facility] Serum or plasma albumin светлана urement (mass/volume)Ordered By: Kam Ocampo on 11-06-2022 Albumin [Mass/Vol] 3.2 g/dL 3.2-5.0 [facility] Serum or plasma albumin/glob ulin mass ratioOrdered By: Kam Ocampo on 11-06-2022 Albumin/Globulin [Mass ratio] 0.7 {ratio} 0.9-2.4 [facility] Serum or plasma calcium светлана urement (mass/volume)Ordered By: Yandel Matute on 11-06-2022 Calcium [Mass/Vol] 10.3 mg/dL 8.5-10.1 [facility] Serum or plasma calcium светлана urement (mass/volume)Ordered By: Kam Ocampo on 11-06-2022 Calcium [Mass/Vol] 10.1 mg/dL 8.5-10.1 [facility] Serum or plasma creatinine m easurement (mass/volume)Ordered By: Yandel Matute on 11-06-2022 Creatinine [Mass/Vol] 0.88 mg/dL 0.55-1.02 [facility] Comment on above: The validity of the calculated GFR & GFRAA in patients over 70 years has not been determined. Clinical correlation is essential. Serum or plasma creatinine m easurement (mass/volume)Ordered By: Kam Ocampo on 11-06-2022 Creatinine [Mass/Vol] 0.86 mg/dL 0.55-1.02 [facility] Comment on above: The validity of the calculated GFR & GFRAA in patients over 70 years has not been determined. Clinical correlation is essential. Serum or plasma urea nitroge n measurement (mass/volume)Ordered By: Yandel Matute on 11-06-2022 Urea nitrogen [Mass/Vol] 21 mg/dL 08-26 [facility] Serum or plasma urea nitroge n measurement (mass/volume)Ordered By: Kam Ocampo on 11-06-2022 Urea nitrogen [Mass/Vol] 18 mg/dL 08-26 [facility] Squamous epithelial cells de tection in urine sediment by light microscopyOrdered By: Yandel Matute on 11-06-2022 Epithelial cells.squamous LM Ql (Urine sed) 0 SEEN /hpf 5-10 [facility] Squamous epithelial cells de tection in urine sediment by light microscopyOrdered By: Kam Ocampo on 11-06-2022 Epithelial cells.squamous LM Ql (Urine sed) 0 SEEN /hpf 5-10 [facility] Thin prep Papanicolaou smear with manual screeningOrdered By: Yandel Matute on 11-06-2022 Thin prep Papanicolaou smear with manual screening 1 5-15 [facility] Thin prep Papanicolaou smear with manual screeningOrdered By: Kam Ocampo on 11-06-2022 Thin prep Papanicolaou smear with manual screening 18 U/L 15-37 [facility] Thin prep Papanicolaou smear with manual screening 3 5-15 [facility] Urine blood detectionOrdered By: Yandel Matute on 11-06-2022 RBC Ql (U) Negative Negative [facility] RBC Ql (U) 0 SEEN /hpf 0-5 [facility] Urine blood detectionOrdered By: Kam Ocampo on 11-06-2022 RBC Ql (U) 10 /ul Negative [facility] RBC Ql (U) 0 SEEN /hpf 0-5 [facility] Urine clarityOrdered By: Mehdi Matute on 11-06-2022 Clarity (U) Clear Clear [facility] Urine clarityOrdered By: Aline Ocampo on 11-06-2022 Clarity (U) Sl. Cloudy Clear [facility] Urine color determinationOrd ered By: Yandel Matute on 11-06-2022 Color (U) Yellow Yellow [facility] Urine color determinationOrd ered By: Kam Ocampo on 11-06-2022 Color (U) Yellow Yellow [facility] Urine glucose detectionOrder ed By: Yandel Matute on 11-06-2022 Glucose Ql (U) Normal mg/dl Normal [facility] Urine glucose detectionOrder ed By: Kam Ocampo on 11-06-2022 Glucose Ql (U) Normal mg/dl Normal [facility] Urine leukocyte esterase det ection by dipstickOrdered By: Yandel Matute on 11-06-2022 Leukocyte esterase Test strip Ql (U) 25 /ul Negative [facility] Urine leukocyte esterase det ection by dipstickOrdered By: Kam Ocampo on 11-06-2022 Leukocyte esterase Test strip Ql (U) 500 /ul Negative [facility] Urine pHOrdered By: Yandel butts on 11-06-2022 pH (U) 7.0 [pH] 5.0 - 8.0 [facility] Urine pHOrdered By: Kam barker on 11-06-2022 pH (U) 8.0 [pH] 5.0 - 8.0 [facility] Urine sediment bacteria coun t by microscopy (number/high power field)Ordered By: Yandel Matute on 11-06-2022 Bacteria LM.HPF (Urine sed) [#/Area] 0 /[HPF] None Seen [facility] Urine sediment bacteria coun t by microscopy (number/high power field)Ordered By: Kam Ocampo on 11-06-2022 Bacteria LM.HPF (Urine sed) [#/Area] 0 /[HPF] None Seen [facility] Urine specific gravity measu rementOrdered By: Yandel Matute on 11-06-2022 Specific gravity (U) [Rel density] 1.010 1.002-1.03 0 [facility] Urine specific gravity measu rementOrdered By: Kam Ocampo on 11-06-2022 Specific gravity (U) [Rel density] 1.010 1.002-1.03 0 [facility] Urobilinogen Auto test strip Ql (U)Ordered By: Yandel Matute on 11-06-2022 Urobilinogen Ql (U) Normal mg/dl Normal [facility] Urobilinogen Auto test strip Ql (U)Ordered By: Kam Ocampo on 11-06-2022 Urobilinogen Ql (U) Normal mg/dl Normal [facility] Basophil percentageOrdered B y: Hayden Diaz on 10-31-2022 Chloride [Moles/Vol] 108 mmol/L 98-107 [facility] Glucose [Mass/Vol] 95 mg/dL 74-106 [facility] Potassium [Moles/Vol] 3.8 mmol/L 3.5-5.1 [facility] Sodium [Moles/Vol] 141 mmol/L 136-145 [facility] WBC (Bld) [#/Vol] 7.6 10*3/uL 4.4-11.0 [facility] Blood erythrocytes count (nu mber/volume)Ordered By: Hayden Diaz on 10-31-2022 RBC (Bld) [#/Vol] 3.16 10*6/uL 4.2-5.4 [facility] Blood hemoglobin measurement (mass/volume)Ordered By: Hayden Diaz on 10-31-2022 Hemoglobin (Bld) [Mass/Vol] 10.5 g/dL 12.0-15.0 [facility] Blood platelet mean volumeOr dered By: Hayden Diaz on 10-31-2022 Platelet mean volume (Bld) [Entitic vol] 8.9 fL 6.2-12.0 [facility] Determination of erythrocyte mean corpuscular volume (MCV)Ordered By: Hayden Diaz on 10-31-2022 MCV (RBC) [Entitic vol] 103.5 fL 81-99 [facility] Hematocrit Auto (Bld) [Volum e fraction]Ordered By: Hayden Diaz on 10-31-2022 Hematocrit (Bld) [Volume fraction] 32.7 % 37-47 [facility] Laboratory - Chemistry and C hemistry - challengeOrdered By: Hayden Diaz on 10-31-2022 CO2 [Moles/Vol] 32.0 mmol/L 21.0-32.0 [facility] Urea nitrogen/Creatinine [Mass ratio] 23.8 mg/mg 10-20 [facility] Laboratory - Hematology and Cell countsOrdered By: Hayden Diaz on 10-31-2022 Erythrocyte distribution width (RBC) [Entitic vol] 51.9 fL 35.1-43.9 [facility] Erythrocyte distribution width (RBC) [Ratio] 13.4 % 11.6-14.6 [facility] MCH (RBC) [Entitic mass] 33.2 pg 27.0-32.0 [facility] MCHC Auto (RBC) [Mass/Vol]Or dered By: Hayden Diaz on 10-31-2022 MCHC (RBC) [Mass/Vol] 32.1 g/dL 32-36 [facility] No Panel InformationOrdered By: Hayden Diaz on 10-31-2022 Estimated Creatinine Clearance Calc 29.01 ml/min [facility] Estimated GFR (MDRD) Amer 99 mL/min >60 [facility] Comment on above: GFR Calc Estimated GFR (MDRD) Non-Af Amer 82 mL/min >60 [facility] Comment on above: Non- GFR Calc Platelets bldOrdered By: Yasmin Diaz on 10-31-2022 Platelets (Bld) [#/Vol] 195 10*3/uL 150-450 [facility] Serum or plasma calcium светлана urement (mass/volume)Ordered By: Hayden Diaz on 10-31-2022 Calcium [Mass/Vol] 8.6 mg/dL 8.5-10.1 [facility] Serum or plasma creatinine m easurement (mass/volume)Ordered By: Hayden Diaz on 10-31-2022 Creatinine [Mass/Vol] 0.72 mg/dL 0.55-1.02 [facility] Comment on above: The validity of the calculated GFR & GFRAA in patients over 70 years has not been determined. Clinical correlation is essential. Serum or plasma urea nitroge n measurement (mass/volume)Ordered By: Hayden Diaz on 10-31-2022 Urea nitrogen [Mass/Vol] 17 mg/dL 7-18 [facility] Thin prep Papanicolaou smear with manual screeningOrdered By: Hayden Diaz on 10-31-2022 Thin prep Papanicolaou smear with manual screening 1 5-15 [facility] Absolute lymphocyte countOrd ered By: Amalia Donahue on 10-30-2022 Lymphocytes Auto (Unsp spec) [#/Vol] 1.95 10*3/uL 0.83-4.51 [facility] Basophil percentageOrdered B y: Hayden Diza on 10-30-2022 Basophil percentage 0 SEEN /hpf 0-5 [facility] Cholesterol [Mass/Vol] 94 mg/dL <200 [facility] Comment on above: <200 mg/dL Desirable 200-240 mg/dL Borderline >240 mg/dL High Risk Triglyceride [Mass/Vol] 72 mg/dL <199 [facility] Comment on above: The drugs N-Acetylcy steine and Metamizole may falsely depress this assay.Serum Triglycerides Reference Interval Normal <150 mg/dL Borderline high 150 - 199 mg/dL High 200 - 499 mg/dL Very High > or = 500 mg/dL Basophil percentageOrdered B y: Amalia Westelvira on 10-30-2022 Basophils/100 WBC (Bld) 0.7 % 0-1 [facility] Chloride [Moles/Vol] 103 mmol/L 98-107 [facility] Eosinophils/100 WBC (Bld) 2.1 % 0-5 [facility] Glucose [Mass/Vol] 107 mg/dL 74-106 [facility] Comment on above: Fasting Glucose resu lt from 100 to 125 mg/dL suggests IMPAIRED HOMEOSTASIS per A.D.A. criteria. Neutrophils (Bld) [#/Vol] 3.2 10*3/uL 2.0-7.7 [facility] Neutrophils/100 WBC (Bld) 55.1 % 47-70 [facility] Potassium [Moles/Vol] 4.3 mmol/L 3.5-5.1 [facility] Comment on above: Slight Hemolysis, Re sult may be falsely increased. Sodium [Moles/Vol] 136 mmol/L 136-145 [facility] WBC (Bld) [#/Vol] 5.8 10*3/uL 4.4-11.0 [facility] Bilirubin Test strip Ql (U)O rdered By: Hayden Diaz on 10-30-2022 Bilirubin Ql (U) Negative Negative [facility] Blood erythrocytes count (nu mber/volume)Ordered By: Amalia Donahue on 10-30-2022 RBC (Bld) [#/Vol] 3.10 10*6/uL 4.2-5.4 [facility] Blood hemoglobin measurement (mass/volume)Ordered By: Amalia Donahue on 10-30-2022 Hemoglobin (Bld) [Mass/Vol] 10.1 g/dL 12.0-15.0 [facility] Blood lymphocytes/100 leukoc ytesOrdered By: Amalia Donahue on 10-30-2022 Lymphocytes/100 WBC (Bld) 33.7 % 19-41 [facility] Blood monocytes/100 leukocyt esOrdered By: Amalia Donahue on 10-30-2022 Monocytes/100 WBC (Bld) 8.1 % 0-10 [facility] Blood platelet mean volumeOr dered By: Amalia Donahue on 10-30-2022 Platelet mean volume (Bld) [Entitic vol] 9.2 fL 6.2-12.0 [facility] Determination of erythrocyte mean corpuscular volume (MCV)Ordered By: Amalia Donahue on 10-30-2022 MCV (RBC) [Entitic vol] 103.9 fL 81-99 [facility] Hematocrit Auto (Bld) [Volum e fraction]Ordered By: Amalia Donahue on 10-30-2022 Hematocrit (Bld) [Volume fraction] 32.2 % 37-47 [facility] INR in Blood by Coagulation assayOrdered By: Amalia Donahue on 10-30-2022 INR Coag (Bld) [Relative time] 1.0 {INR} [facility] Ketones Test strip Ql (U)Ord ered By: Hayden Diaz on 10-30-2022 Ketones Ql (U) Negative Negative [facility] Laboratory - Chemistry and C hemistry - challengeOrdered By: Amalia Donahue on 10-30-2022 CO2 [Moles/Vol] 32.0 mmol/L 21.0-32.0 [facility] Urea nitrogen/Creatinine [Mass ratio] 27.0 mg/mg 10-20 [facility] Laboratory - CoagulationOrde red By: Amalia Donahue on 10-30-2022 aPTT Coag (Bld) [Time] 27.1 s 24.1-36.2 [facility] PT Coag (PPP) [Time] 13.2 s 11.7-14.9 [facility] Laboratory - Hematology and Cell countsOrdered By: Amalia Donahue on 10-30-2022 Erythrocyte distribution width (RBC) [Entitic vol] 52.5 fL 35.1-43.9 [facility] Erythrocyte distribution width (RBC) [Ratio] 13.6 % 11.6-14.6 [facility] Immature granulocytes/100 WBC (Bld) 0.300 % 0.0-0.9 [facility] Comment on above: IG% - Immature Granu locytes (promyelocytes, myelocytes and metamyelocytes) > 1% indicates that a LEFT SHIFT is Present. MCH (RBC) [Entitic mass] 32.6 pg 27.0-32.0 [facility] Nucleated RBC/100 WBC (Bld) [Ratio] 0 % 0-5 [facility] MCHC Auto (RBC) [Mass/Vol]Or dered By: Amalia Donahue on 10-30-2022 MCHC (RBC) [Mass/Vol] 31.4 g/dL 32-36 [facility] Mucus LM Ql (Urine sed)Order ed By: Hayden Diaz on 10-30-2022 Mucus Ql (Urine sed) 0 SEEN /hpf [facility] Nitrite Test strip Ql (U)Ord ered By: Hayden Diaz on 10-30-2022 Nitrite Ql (U) Negative Negative [facility] No Panel InformationOrdered By: Amalia Donahue on 10-30-2022 Estimated Creatinine Clearance Calc 34.02 ml/min [facility] Estimated GFR (MDRD) Amer 81 mL/min >60 [facility] Comment on above: GFR Calc Estimated GFR (MDRD) Non-Af Amer 67 mL/min >60 [facility] Comment on above: Non- GFR Calc Troponin I High Sensitivity 5 pg/mL 3.0-54.0 [facility] Comment on above: Please Note: New Regi t Units and Gender Specific Reference Ranges. For more information see Policy Stat Procedure [place] High Sensitivity Troponin (TNIH) and attachments. Platelets bldOrdered By: Loan Donahue on 10-30-2022 Platelets (Bld) [#/Vol] 195 10*3/uL 150-450 [facility] Protein Test strip Ql (U)Ord ered By: Hayden Diaz on 10-30-2022 Protein Ql (U) Negative Negative [facility] Serum or plasma calcium светлана urement (mass/volume)Ordered By: Amalia Donahue on 10-30-2022 Calcium [Mass/Vol] 8.7 mg/dL 8.5-10.1 [facility] Serum or plasma cholesterol in HDL measurement (mass/volume)Ordered By: Hayden Diaz on 10-30-2022 Cholesterol in HDL [Mass/Vol] 33 mg/dL >40 [facility] Comment on above: The drugs N-Acetylcy steine and Metamizole may falsely depress this assay. Reference Range HDL <40 mg/dL Low HDL Cholesterol HDL >or= 60 mg/dL High HDL Cholesterol Serum or plasma cholesterol in VLDL measurement (mass/volume)Ordered By: Hayden Diaz on 10-30-2022 Cholesterol in VLDL [Mass/Vol] 14 mg/dL 5-40 [facility] Serum or plasma creatinine m easurement (mass/volume)Ordered By: Amalia Donahue on 10-30-2022 Creatinine [Mass/Vol] 0.85 mg/dL 0.55-1.02 [facility] Comment on above: The validity of the calculated GFR & GFRAA in patients over 70 years has not been determined. Clinical correlation is essential. Serum or plasma low density lipoprotein (LDL) cholesterol measurement (mass/volume)Ordered By: Hayden Diaz on 10-30-2022 Cholesterol in LDL [Mass/Vol] 47 mg/dL 0-130 [facility] Serum or plasma urea nitroge n measurement (mass/volume)Ordered By: Amalia Donahue on 10-30-2022 Urea nitrogen [Mass/Vol] 23 mg/dL 7-18 [facility] Squamous epithelial cells de tection in urine sediment by light microscopyOrdered By: Hayden Diaz on 10-30-2022 Epithelial cells.squamous LM Ql (Urine sed) 0 SEEN /hpf 5-10 [facility] Thin prep Papanicolaou smear with manual screeningOrdered By: Amalia Donahue on 10-30-2022 Thin prep Papanicolaou smear with manual screening 1 5-15 [facility] Urine blood detectionOrdered By: Hayden Diaz on 10-30-2022 RBC Ql (U) Negative Negative [facility] RBC Ql (U) 0 SEEN /hpf 0-5 [facility] Urine clarityOrdered By: Yasmin Diaz on 10-30-2022 Clarity (U) Clear Clear [facility] Urine color determinationOrd ered By: Hayden Diaz on 10-30-2022 Color (U) Yellow Yellow [facility] Urine glucose detectionOrder ed By: Hadyen Diaz on 10-30-2022 Glucose Ql (U) Normal mg/dl Normal [facility] Urine leukocyte esterase det ection by dipstickOrdered By: Hayden Diaz on 10-30-2022 Leukocyte esterase Test strip Ql (U) Negative Negative [facility] Urine pHOrdered By: Reginaldo Diaz on 10-30-2022 pH (U) 8.0 [pH] 5.0 - 8.0 [facility] Urine sediment bacteria coun t by microscopy (number/high power field)Ordered By: Hayden Diaz on 10-30-2022 Bacteria LM.HPF (Urine sed) [#/Area] 0 /[HPF] None Seen [facility] Urine specific gravity measu rementOrdered By: Hayden Diaz on 10-30-2022 Specific gravity (U) [Rel density] 1.010 1.002-1.03 0 [facility] Urobilinogen Auto test strip Ql (U)Ordered By: Hayden Diaz on 10-30-2022 Urobilinogen Ql (U) Normal mg/dl Normal [facility] Whole blood hemoglobin A1c/t otal hemoglobin ratio (mass fraction)Ordered By: Hayden Diaz on 10-30-2022 HbA1c (Bld) [Mass fraction] 5.5 % 3.8-5.6 [facility] Comment on above: Normal < 5.7 % [...] mouth daily Electrocardiogram 12 Lead; Status:Active; Requested for:[id number]; Osteoporosis Stop: Oscal 500/200 D-3 TABS Unlinked [...] She is now under going rehab in [facility] and is now on continuous O2. She [...] by Problem List Migration; 2012-04-06; Moved to [facility] Jan 01 2013 4:07PM Medicare annual [...] (V13.4) History of Atherosclerotic heart disease of [place] coronary artery with unspecified angina pectoris (414.01,413.9) [...] by Proble (more content not included)... Normal VerbalizeIt BASIC METABOLIC PANELon 09-0 Anion gap [Moles/Vol] -2 mmol/L Low 3-13 [facility] Comment on above: Performed By: #### L AB15 ####Billing Administrator: REINA FARIA ([id number])[facility] ([facility])[address] [place] [id number] [place] [address] Calcium [Mass/Vol] 8.5 mg/dL Normal 8.4-10.4 [facility] Comment on above: Performed By: #### L AB15 ####Billing Administrator: REINA FARIA ([id number])[facility] ([facility])[address] Chloride [Moles/Vol] 102 mmol/L Normal 98-107 [facility] Comment on above: Performed By: #### L AB15 ####Billing Administrator: REINA FARIA ([id number])[facility] [place] ([facility])[address] CO2 [Moles/Vol] 37 mmol/L High 22-30 [facility] Comment on above: Performed By: #### L AB15 ####Billing Administrator: REINA FARIA ([id number])[facility] ([facility])[address] Creatinine [Mass/Vol] 0.71 mg/dL Normal 0.52-1.04 [facility] Comment on above: Performed By: #### L AB15 ####Billing Administrator: REINA FARIA ([id number])[facility] [place] ([facility])[address] GLOMERULAR FILTRATION RATE ML/MIN/1.73 SQ M.PREDICTED 82.9 mL/min/1.73m*2 Normal >60.0 [facility] Comment on above: Result Comment: Calc ulation based on the Chronic Kidney Disease Epidemiology Collaboration (CKD-EPI) equation refit without adjustment for race Performed By: #### L AB15 ####Billing Administrator: REINA FARIA ([id number])[facility] [place] ([facility])[address] Glucose [Mass/Vol] 99 mg/dL Normal 70-100 [facility] Comment on above: Performed By: #### L AB15 ####Billing Administrator: REINA FARIA ([id number])[facility] [place] ([facility])[address] Potassium [Moles/Vol] 4.0 mmol/L Normal 3.5-5.1 [facility] Comment on above: Performed By: #### L AB15 ####Billing Administrator: REINA FARIA ([id number])[facility] CL[facility] ([facility]HLAB)[address] Sodium [Moles/Vol] 137 mmol/L Normal 135-145 [facility] Comment on above: Performed By: #### L AB15 ####Billing Administrator: REINA PEREZDayaGREGORY ([id number])[facility] (SBHLAB)[address] Urea nitrogen [Mass/Vol] 15 mg/dL Normal 7-17 [facility] Comment on above: Performed By: #### L AB15 ####Billing Administrator: REINA PEREZDONNY ([id number])[facility] (SB[facility])[address] Basic metabolic 1998 panelon 10-16-2022 Anion gap [Moles/Vol] -2 mmol/L Low 3 - 13 mmol/L [facility] Calcium [Mass/Vol] 8.5 mg/dL 8.4 - 10. 4 mg/dL [facility] Chloride [Moles/Vol] 102 mmol/L 98 - 10 7 mmol/L [facility] CO2 [Moles/Vol] 37 mmol/L High 22 - 30 mmol/L [facility] Creatinine [Mass/Vol] 0.71 mg/dL 0.52 - 1.04 mg/dL [facility] GFR/1.73 sq M.predicted MDRD (S/P/Bld) [Vol rate/Area] 82.9 mL/min/{1.73_m2} - PINF [facility] Comment on above: Calculation based on the Chronic Kidney Disease Epidemiology Collaboration (CKD-EPI) equation refit without adjustment for race Glucose [Mass/Vol] 99 mg/dL 70 - 100 mg/dL [facility] Interpretation and review of laboratory results Abnormal [facility] Potassium [Moles/Vol] 4.0 mmol/L 3.5 - 5.1 mmol/L [facility] Sodium [Moles/Vol] 137 mmol/L 135 - 145 mmol/L [facility] Urea nitrogen [Mass/Vol] 15 mg/dL 7 - 17 mg/dL [facility] CARECOORDon 10-16-2022 [facility] Patient Choice Patient Name: KATHERINE JUDGE Date of : 1935 All Providers Sent Referral Name: [facility] Phone: [phone] Address: [address] [place] [address] Name: [facility] Phone: [phone] Address: [address] [place] [address] Name: [facility] Address: [address] [place] [id number] Normal [facility] Discharge med list transmitted to -[facility] via [facility] per [facility] request. [id number] was entered into [facility] for the SNF- Facility is aware. Normal [facility] CBC W Auto Differential pane l (Bld)on 10-16-2022 Basophils (Bld) [#/Vol] 0.0 10*3/uL 0.0 - 0.2 10*3/uL [facility] Basophils/100 WBC (Bld) 0.8 % 0.0 - 2.0 % [facility] Eosinophils (Bld) [#/Vol] 0.2 10*3/uL 0.0 - 0.5 10*3/uL [facility] Eosinophils/100 WBC (Bld) 4.6 % 1.0 - 6.0 % [facility] Erythrocyte distribution width (RBC) [Ratio] 13.4 % 11.5 - 14.5 % [facility] Hematocrit (Bld) [Volume fraction] 32.8 % Low 35.0 - 47.0 % [facility] Hemoglobin (Bld) [Mass/Vol] 11.1 g/dL Low 11.7 - 16.0 g/dL [facility] Interpretation and review of laboratory results Abnormal [facility] Lymphocytes (Bld) [#/Vol] 1.5 10*3/uL 1.0 - 4.3 10*3/uL [facility] Lymphocytes/100 WBC (Bld) 28.1 % 20.0 - 40.0 % [facility] MCH (RBC) [Entitic mass] 34.3 pg High 26.0 - 34.0 pg [facility] MCHC (RBC) [Mass/Vol] 33.8 % 32.0 - 36.0 % [facility] MCV (RBC) [Entitic vol] 101.5 fL High 80.0 - 98.0 fL [facility] Monocytes (Bld) [#/Vol] 0.5 10*3/uL 0.0 - 0.8 10*3/uL [facility] Monocytes/100 WBC (Bld) 9.7 % 2.0 - 10.0 % [facility] Neutrophils (Bld) [#/Vol] 3.1 10*3/uL 1.8 - 7.0 10*3/uL [facility] Neutrophils/100 WBC (Bld) 56.8 % 40.0 - 80.0 % [facility] Nucleated RBC/100 WBC (Bld) [Ratio] 0.0 % [facility] Platelet mean volume (Bld) [Entitic vol] 6.9 fL Low 7.4 - 12.4 fL [facility] Platelets (Bld) [#/Vol] 232 10*3/uL 140 - 440 10*3/uL [facility] RBC (Bld) [#/Vol] 3.23 10*6/uL Low 3.8 - 5.20 10*6/uL [facility] WBC (Bld) [#/Vol] 5.5 10*3/uL 3.6 - 10.7 10*3/uL [facility] CBC WITH AUTO DIFFERENTIALon 10-16-2022 Basophils (Bld) [#/Vol] 0.0 10*3/uL Normal 0.0-0.2 [facility] Comment on above: Performed By: #### L [id number] #### Billing Administrator: REINA FARIA ([id number]) [facility] [address] Basophils/100 WBC (Bld) 0.8 % Normal 0.0-2.0 [facility] Comment on above: Performed By: #### L [id number] #### Billing Administrator: REINA FARIA ([id number]) [facility] ([facility]) [address] Eosinophils (Bld) [#/Vol] 0.2 10*3/uL Normal 0.0-0.5 [facility] Comment on above: Performed By: #### L [id number] #### Billing Administrator: REINA FARIA ([id number]) [facility] [address] Eosinophils/100 WBC (Bld) 4.6 % Normal 1.0-6.0 [facility] Comment on above: Performed By: #### L [id number] #### Billing Administrator: REINA FARIA ([id number]) [facility] [address] Erythrocyte distribution width (RBC) [Ratio] 13.4 % Normal 11.5-14.5 [facility] Comment on above: Performed By: #### L [id number] #### Billing Administrator: REINA FARIA ([id number]) [facility] [address] ERYTHROCYTE MEAN CORPUSCULAR HEMOGLOBIN CONCENTRATION (G/DL) BY AUTOMATED 33.8 % Normal 32.0-36.0 [facility] Comment on above: Performed By: #### L [id number] #### Billing Administrator: REINA FARIA ([id number]) [facility] ([facility] [address] Hematocrit (Bld) [Volume fraction] 32.8 % Low 35.0-47.0 [facility] Comment on above: Performed By: #### L [id number] #### Billing Administrator: REINA FARIA ([id number]) [facility] [address] Hemoglobin (Bld) [Mass/Vol] 11.1 g/dL Low 11.7-16.0 [facility] Comment on above: Performed By: #### L [id number] #### Billing Administrator: REINA FARIA ([id number]) [facility] [address] Lymphocytes (Bld) [#/Vol] 1.5 10*3/uL Normal 1.0-4.3 [facility] Comment on above: Performed By: #### L [id number] #### Billing Administrator: REINA FARIA ([id number]) [facility] ([facility]) [address] Lymphocytes/100 WBC (Bld) 28.1 % Normal 20.0-40.0 [facility] Comment on above: Performed By: #### L [id number] #### Billing Administrator: REINA FARIA ([id number]) [facility] ([facility]) [address] MCH (RBC) [Entitic mass] 34.3 pg High 26.0-34.0 [facility] Comment on above: Performed By: #### L [id number] #### Billing Administrator: REINA FARIA ([id number]) [facility] [address] MCV (RBC) [Entitic vol] 101.5 fL High 80.0-98.0 [facility] Comment on above: Performed By: #### L [id number] #### Billing Administrator: REINA FARIA ([id number]) [facility] [address] Monocytes (Bld) [#/Vol] 0.5 10*3/uL Normal 0.0-0.8 [facility] Comment on above: Performed By: #### L [id number] #### Billing Administrator: REINA FARIA ([id number]) [facility] ([facility]) [address] [place] [address] [place] Monocytes/100 WBC (Bld) 9.7 % Normal 2.0-10.0 [facility] Comment on above: Performed By: #### L [id number] #### Billing Administrator: REINA FARIA ([id number]) [facility] [address] [place] [address] [place] Neutrophils (Bld) [#/Vol] 3.1 10*3/uL Normal 1.8-7.0 [facility] Comment on above: Performed By: #### L [id number] #### Billing Administrator: REINA FARIA ([id number]) [facility] [address] Neutrophils/100 WBC (Bld) 56.8 % Normal 40.0-80.0 [facility] Comment on above: Performed By: #### L [id number] #### Billing Administrator: REINA FARIA ([id number]) [facility] [address] [place] [address] [place] NRBC (PER 100 WBCS) BY AUTOMATED COUNT 0.0 /100 WBCs Normal 0.0-2.0 [facility] Comment on above: Performed By: #### L [id number] #### Billing Administrator: REINA FARIA ([id number]) [facility] ([facility]) [address] [place] [address] [place] Platelet mean volume (Bld) [Entitic vol] 6.9 fL Low 7.4-12.4 [facility] Comment on above: Performed By: #### L [id number] #### Billing Administrator: REINA FARIA ([id number]) [facility] ([facility]) [address] [place] [address] [place] PLATELETS (10*3/UL) IN BLOOD AUTOMATED COUNT 232 10*3/uL Normal 140-440 [facility] Comment on above: Performed By: #### L [id number] #### Billing Administrator: REINA FARIA ([id number]) [facility] [address] [place] [address] [place] RBC (Bld) [#/Vol] 3.23 10*6/uL Low 3.8-5.20 [facility] Comment on above: Performed By: #### L [id number] #### Billing Administrator: REINA FARIA ([id number]) [facility] [address] [place] [address] [place] WBC (Bld) [#/Vol] 5.5 10*3/uL Normal 3.6-10.7 [facility] Comment on above: Performed By: #### L [id number] #### Billing Administrator: REINA FARIA ([id number]) [facility] ([facility]) [address] SARS-CoV-2 (COVID-19) Ag IA. rapid Ql (Resp)Ordered By: Lala Barber on 10-16-2022 Interpretation and review of laboratory results Normal [facility] SARS-CoV-2 AntigenOrdered By : Lala Barber on 10-16-2022 SARS-CoV-2 (COVID-19) Ag IA.rapid Ql (Resp) Negative Negative [facility] Comment on above: A negative result do es not rule out the possibility of SARS-CoV-2 infection. NAAT-based methods should be considered for symptomatic patients presenting greater than seven days after onset of symptoms. Method: Lateral flow immunoassay. Fact sheets for healthcare providers and patients can be found at the following sites: https://www.[employer].gov/media/042075/download https://www.[employer].gov/media/086895/download Basic metabolic 1998 panelon 10-15-2022 Anion gap [Moles/Vol] 1 mmol/L Low 3 - 13 mmol/L [facility] Calcium [Mass/Vol] 8.3 mg/dL Low 8.4 - 10. 4 mg/dL [facility] Chloride [Moles/Vol] 103 mmol/L 98 - 10 7 mmol/L [facility] CO2 [Moles/Vol] 35 mmol/L High 22 - 30 mmol/L [facility] Creatinine [Mass/Vol] 0.61 mg/dL 0.52 - 1.04 mg/dL [facility] GFR/1.73 sq M.predicted MDRD (S/P/Bld) [Vol rate/Area] 87.2 mL/min/{1.73_m2} - PINF [facility] Comment on above: Calculation based on the Chronic Kidney Disease Epidemiology Collaboration (CKD-EPI) equation refit without adjustment for race Glucose [Mass/Vol] 106 mg/dL High 70 - 100 mg/dL [facility] Interpretation and review of laboratory results Abnormal [facility] Potassium [Moles/Vol] 4.2 mmol/L 3.5 - 5.1 mmol/L [facility] Sodium [Moles/Vol] 140 mmol/L 135 - 145 mmol/L [facility] Urea nitrogen [Mass/Vol] 11 mg/dL 7 - 17 mg/dL [facility] CARECOORDon 10-15-2022 MARRY Spoke with Lesley at [facility] & they can accept pt on 10/16. Notified pt & she asked TCC to follow up with her son. 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 Normal [facility] CBC W Auto Differential pane l (Bld)on 10-15-2022 Basophils (Bld) [#/Vol] 0.0 10*3/uL 0.0 - 0.2 10*3/uL [facility] Basophils/100 WBC (Bld) 0.6 % 0.0 - 2.0 % [facility] Eosinophils (Bld) [#/Vol] 0.2 10*3/uL 0.0 - 0.5 10*3/uL [facility] Eosinophils/100 WBC (Bld) 2.2 % 1.0 - 6.0 % [facility] Erythrocyte distribution width (RBC) [Ratio] 13.6 % 11.5 - 14.5 % [facility] Hematocrit (Bld) [Volume fraction] 32.4 % Low 35.0 - 47.0 % [facility] Hemoglobin (Bld) [Mass/Vol] 10.8 g/dL Low 11.7 - 16.0 g/dL [facility] Interpretation and review of laboratory results Abnormal [facility] Lymphocytes (Bld) [#/Vol] 1.2 10*3/uL 1.0 - 4.3 10*3/uL [facility] Lymphocytes/100 WBC (Bld) 17.3 % Low 20.0 - 40.0 % [facility] MCH (RBC) [Entitic mass] 34.1 pg High 26.0 - 34.0 pg [facility] MCHC (RBC) [Mass/Vol] 33.5 % 32.0 - 36.0 % [facility] MCV (RBC) [Entitic vol] 101.6 fL [...] [#/Vol] 7.1 10*3/uL 3.6 - 10.7 10*3/uL [facility] Progress Noteon 10-15-2022 Progress Note [...] assess Fluid Accumulation: No significant fluid accumulation Pigment Furnace Tender Strength: Not Performed Nutrition Assessment: Pt is very pleasant, appeared in no distress this afternoon with visitor at bedside. Pt's diet was advanced to solids today- GI [place], low fiber. Pt reported that she ordered [...] (kg): 49.4 kg Total Energy Requirements (kcals/day): 0528-7756 (30-35 kcal/kg CBW) Weight Used for Protein [...] 110# UBW) % Weight Change (Calculated): -4.5 [place] Body Weight (lbs) (Calculated): 100 lbs [place] Body Weight (Kg) (Calculated): 45 kg % [place] Body Weight (Calculated): 105 % BMI (kg/m2) [...] Oral Nutrition Supplement Brittni Javed RD Contact: *[phone] or via Secure Chat Normal [facility] Basic metabolic 1998 panelon 10-14-2022 Anion gap [Moles/Vol] -1 mmol/L Low 3 - 13 mmol/L [facility] Calcium [Mass/Vol] 8.0 mg/dL Low 8.4 - 10. 4 mg/dL [facility] Chloride [Moles/Vol] 108 mmol/L High 98 - 10 7 mmol/L [facility] CO2 [Moles/Vol] 33 mmol/L High 22 - 30 mmol/L [facility] Creatinine [Mass/Vol] 0.71 mg/dL 0.52 - 1.04 mg/dL [facility] GFR/1.73 sq M.predicted MDRD (S/P/Bld) [Vol rate/Area] 82.9 mL/min/{1.73_m2} - PINF [facility] Comment on above: Calculation based on the Chronic Kidney Disease Epidemiology Collaboration (CKD-EPI) equation refit without adjustment for race Glucose [Mass/Vol] 92 mg/dL 70 - 100 mg/dL [facility] Interpretation and review of laboratory results Abnormal [facility] Potassium [Moles/Vol] 4.2 mmol/L 3.5 - 5.1 mmol/L [facility] Sodium [Moles/Vol] 139 mmol/L 135 - 145 mmol/L [facility] Urea nitrogen [Mass/Vol] 15 mg/dL 7 - 17 mg/dL [facility] CARECOORDon 10-14-2022 [facility] Care Managment Initi al Assessment Date: 10/14/2022 Patient Name: Katherine Judge : 1935 Patient Information Source of Information: Patient Cognition/Language: WFL - Within Functional Limits Permission given to speak with patient distribution sales representative/caregiver as indicated: Yes (Ganga Judge, son, ) Confirmation of Payer with patient/family: Yes Payer Name: Medicare [place]: No (Spouse is a . Made referral [...] Living Prescription Coverage: Yes Pharmacy Used: [facility] in [place] Medication Management: Independent Transportation/Shopping: Independent Transportation Mode: [...] Additional Information: Chart reviewed. Patient [facility] treatment of Proctocolitis. Full liquid diet. PT/OT recommends SNF. Met with patient at bedside. Explained role. She is very pleasant. 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 Reports her son is helpful and lives 20 minutes away. Independent with adls. She does not drive. +PCP, +RX cov, +DME. Discussed SNF. Patient interested. But, wants to discuss with son first. Served Medicare Choice listing. No insurance authorization required to admit to SNF. DC plan: TBD Home with Home care vs SNF Tasked RAGINI perez to follow Roberta Whitney RN Normal [facility] CBC W Auto Differential pane l (Bld)Ordered By: Chaya Cook on 10-14-2022 Basophils (Bld) [#/Vol] 0.1 10*3/uL 0.0 - 0.2 10*3/uL [facility] Basophils/100 WBC (Bld) 1.0 % 0.0 - 2.0 % [facility] Eosinophils (Bld) [#/Vol] 0.2 10*3/uL 0.0 - 0.5 10*3/uL [facility] Eosinophils/100 WBC (Bld) 3.3 % 1.0 - 6.0 % [facility] Erythrocyte distribution width (RBC) [Ratio] 13.4 % 11.5 - 14.5 % [facility] Hematocrit (Bld) [Volume fraction] 31.0 % Low 35.0 - 47.0 % [facility] Hemoglobin (Bld) [Mass/Vol] 10.4 g/dL Low 11.7 - 16.0 g/dL [facility] Interpretation and review of laboratory results Abnormal [facility] Lymphocytes (Bld) [#/Vol] 1.4 10*3/uL 1.0 - 4.3 10*3/uL [facility] Lymphocytes/100 WBC (Bld) 22.5 % 20.0 - 40.0 % [facility] MCH (RBC) [Entitic mass] 34.3 pg High 26.0 - 34.0 pg [facility] MCHC (RBC) [Mass/Vol] 33.7 % 32.0 - 36.0 % [facility] MCV (RBC) [Entitic vol] 101.5 fL High 80.0 - 98.0 fL [facility] Monocytes (Bld) [#/Vol] 0.6 10*3/uL 0.0 - 0.8 10*3/uL [facility] Monocytes/100 WBC (Bld) 9.9 % 2.0 - 10.0 % [facility] Neutrophils (Bld) [#/Vol] 4.0 10*3/uL 1.8 - 7.0 10*3/uL [facility] Neutrophils/100 WBC (Bld) 63.3 % 40.0 - 80.0 % [facility] Nucleated RBC/100 WBC (Bld) [Ratio] 0.0 % [facility] Platelet mean volume (Bld) [Entitic vol] 7.0 fL Low 7.4 - 12.4 fL [facility] Platelets (Bld) [#/Vol] 213 10*3/uL 140 - 440 10*3/uL [facility] RBC (Bld) [#/Vol] 3.05 10*6/uL Low 3.8 - 5.20 10*6/uL [facility] WBC (Bld) [#/Vol] 6.3 10*3/uL 3.6 - 10.7 10*3/uL [facility] Progress Noteon 10-14-2022 Progress Note Occupational Therapy Facility/Department: 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 No true LOB noted however pt demo [...] LE Dress (more content not included)... Normal [facility] XR Abdomen Single viewon FINDINGS/IMPRESSION: Limitations: [...] Electronically Signed Date/Time: 10/14/2022 12:15 PM EDT [facility] Patient Name: KATHERINE SIMON : 1935 Exam Date/Time: 10/14/2022 08:50 Procedure: XR ABDOMEN 1 VIEW Ordering Provider: VINES JEFFREY Reason For Exam: CONSTIPATION CLINICAL INDICATION: Constipation. TECHNIQUE: AP view of the abdomen COMPARISON: Chest radiographs previous day, CT 10/10/2022 [facility] Frances Norton MD - [...] Electronically Signed Date/Time: 10/14/2022 12:15 PM EDT [facility] Radiology Study observation (narrative) [facility] XR Abdomen Single viewOrdere d By: Frances Norton on 10-14-2022 [facility] Work Phone: Bacteria identified Aer cx N om (Lower resp)Ordered By: Tobi Lim on 10-13-2022 Gram Stain Result Moderate Epithelial cells per low power field Abnormal [facility] Gram Stain Result Few Polymorphonuclea r leukocytes per low power field Abnormal [facility] Gram Stain Result Negative Abnormal [facility] Interpretation and review of laboratory results Abnormal [facility] Basic metabolic 1998 panelon 10-13-2022 Anion gap [Moles/Vol] 1 mmol/L Low 3 - 13 mmol/L [facility] Calcium [Mass/Vol] 8.2 mg/dL Low 8.4 - 10. 4 mg/dL [facility] Chloride [Moles/Vol] 110 mmol/L High 98 - 10 7 mmol/L [facility] CO2 [Moles/Vol] 28 mmol/L 22 - 30 mmol/L [facility] Creatinine [Mass/Vol] 0.90 mg/dL 0.52 - 1.04 mg/dL [facility] GFR/1.73 sq M.predicted MDRD (S/P/Bld) [Vol rate/Area] 62.4 mL/min/{1.73_m2} - PINF [facility] Comment on above: Calculation based on the Chronic Kidney Disease Epidemiology Collaboration (CKD-EPI) equation refit without adjustment for race Glucose [Mass/Vol] 95 mg/dL 70 - 100 mg/dL [facility] Interpretation and review of laboratory results Abnormal [facility] Potassium [Moles/Vol] 4.5 mmol/L 3.5 - 5.1 mmol/L [facility] Sodium [Moles/Vol] 138 mmol/L 135 - 145 mmol/L [facility] Urea nitrogen [Mass/Vol] 20 mg/dL High 7 - 17 mg/dL [facility] CBC W Auto Differential pane l (Bld)Ordered By: Va Joe on 10-13-2022 Basophils (Bld) [#/Vol] 0.0 10*3/uL 0.0 - 0.2 10*3/uL [facility] Basophils/100 WBC (Bld) 0.4 % 0.0 - 2.0 % [facility] Eosinophils (Bld) [#/Vol] 0.2 10*3/uL 0.0 - 0.5 10*3/uL [facility] Eosinophils/100 WBC (Bld) 2.4 % 1.0 - 6.0 % [facility] Erythrocyte distribution width (RBC) [Ratio] 13.8 % 11.5 - 14.5 % [facility] Hematocrit (Bld) [Volume fraction] 29.3 % Low 35.0 - 47.0 % [facility] Hemoglobin (Bld) [Mass/Vol] 9.8 g/dL Low 11.7 - 16.0 g/dL [facility] Interpretation and review of laboratory results Abnormal [facility] Lymphocytes (Bld) [#/Vol] 1.6 10*3/uL 1.0 - 4.3 10*3/uL [facility] Lymphocytes/100 WBC (Bld) 20.5 % 20.0 - 40.0 % [facility] MCH (RBC) [Entitic mass] 33.9 pg 26.0 - 34.0 pg [facility] MCHC (RBC) [Mass/Vol] 33.4 % [...] [#/Vol] 201 10*3/uL 140 - 440 10*3/uL [facility] RBC (Bld) [#/Vol] 2.88 10*6/uL Low 3.8 - 5.20 10*6/uL [facility] WBC (Bld) [#/Vol] 7.8 10*3/uL 3.6 - 10.7 10*3/uL [facility] Respiratory culture and Stai nOrdered By: Tobi Lim on 10-13-2022 Bacteria identified Aer cx Nom (Lower resp) Few respiratory harrison present. [facility] XR Chest 2 Viewson 3 See findings. Report Dictated on Electronically Signed By: Xavier Bender MD Electronically Signed Date/Time: 10/13/2022 2:02 PM EDT [facility] Patient Name: KATHERINE SIMON : 1935 [...] pneumothorax. Osseous structures: No acute osseous abnormality. [facility] Xavier Bender MD - 10/13/2022 Patient [...] Electronically Signed Date/Time: 10/13/2022 2:02 PM EDT [facility] Radiology Study observation (narrative) [facility] XR Chest 2 ViewsOrdered By: Xavier Bender on 10-13-2022 [facility] Work Phone: Basic metabolic 1998 panelon 10-12-2022 Anion gap [Moles/Vol] 6 mmol/L 3 - 13 mmol/L [facility] Calcium [Mass/Vol] 7.9 mg/dL Low 8.4 - 10. 4 mg/dL [facility] Chloride [Moles/Vol] 110 mmol/L High 98 - 10 7 mmol/L [facility] CO2 [Moles/Vol] 25 mmol/L 22 - 30 mmol/L [facility] Creatinine [Mass/Vol] 0.97 mg/dL 0.52 - 1.04 mg/dL [facility] GFR/1.73 sq M.predicted MDRD (S/P/Bld) [Vol rate/Area] 57.0 mL/min/{1.73_m2} Low - PINF [facility] Comment on above: Calculation based on the Chronic Kidney Disease Epidemiology Collaboration (CKD-EPI) equation refit without adjustment for race Glucose [Mass/Vol] 107 mg/dL High 70 - 100 mg/dL [facility] Interpretation and review of laboratory results Abnormal [facility] Potassium [Moles/Vol] 4.4 mmol/L 3.5 - 5.1 mmol/L [facility] Sodium [Moles/Vol] 141 mmol/L 135 - 145 mmol/L [facility] Urea nitrogen [Mass/Vol] 21 mg/dL High 7 - 17 mg/dL [facility] CBC W Auto Differential pane l (Bld)Ordered By: Sylvain Rogers on 10-12-2022 Basophils (Bld) [#/Vol] 0.0 10*3/uL 0.0 - 0.2 10*3/uL [facility] Basophils/100 WBC (Bld) 0.4 % 0.0 - 2.0 % [facility] Eosinophils (Bld) [#/Vol] 0.0 10*3/uL 0.0 - 0.5 10*3/uL [facility] Eosinophils/100 WBC (Bld) 0.1 % Low 1.0 - 6.0 % [facility] Erythrocyte distribution width (RBC) [Ratio] 13.7 % 11.5 - 14.5 % [facility] Hematocrit (Bld) [Volume fraction] 30.0 % Low 35.0 - 47.0 % [facility] Hemoglobin (Bld) [Mass/Vol] 10.1 g/dL Low 11.7 - 16.0 g/dL [facility] Interpretation and review of laboratory results Abnormal [facility] Lymphocytes (Bld) [#/Vol] 1.5 10*3/uL 1.0 - 4.3 10*3/uL [facility] Lymphocytes/100 WBC (Bld) 11.9 % Low 20.0 - 40.0 % [facility] MCH (RBC) [Entitic mass] 34.7 pg High 26.0 - 34.0 pg [facility] MCHC (RBC) [Mass/Vol] 33.7 % 32.0 - 36.0 % [facility] MCV (RBC) [Entitic vol] 103.0 fL High 80.0 - 98.0 fL [facility] Monocytes (Bld) [#/Vol] 0.9 10*3/uL High 0.0 - 0.8 10*3/uL [facility] Monocytes/100 WBC (Bld) 6.9 % 2.0 - 10.0 % [facility] Neutrophils (Bld) [#/Vol] 9.9 10*3/uL High 1.8 - 7.0 10*3/uL [facility] Neutrophils/100 WBC (Bld) 80.7 % High 40.0 - 80.0 % [facility] Nucleated RBC/100 WBC (Bld) [Ratio] 0.0 % [facility] Platelet mean volume (Bld) [Entitic vol] 7.1 fL Low 7.4 - 12.4 fL [facility] Platelets (Bld) [#/Vol] 205 10*3/uL 140 - 440 10*3/uL [facility] RBC (Bld) [#/Vol] 2.91 10*6/uL Low 3.8 - 5.20 10*6/uL [facility] WBC (Bld) [#/Vol] 12.3 10*3/uL High 3.6 - 10.7 10*3/uL [facility] Consulton 10-12-2022 Consult Vancomycin therapy h as been discontinued by Dr. Tobar on 10-12-22. Thank you for the consult. Pharmacy signing off for vancomycin dosing. Marilu Whitaker, [facility], Date: 10/12/22 Time: 12:14 PM Normal [facility] Progress Noteon 10-12-2022 Progress Note Physical Therapy Facility/Department: [address] Physical Therapy Initial Evaluation NAME: Katherine [...] supine<->sit, sc (more content not included)... Normal [facility] [facility] Progress Note Nutrition Assessment [...] assess Fluid Accumulation: No significant fluid accumulation [employer] Furn[employer] Strength: Not Performed Nutrition Assessment: 87 year old woman with PMHx: CAD, colitis, hypothyroidism. Presented to [facility] with worsening abdominal pain (achy [...] (kg): 49.4 kg Total Energy Requirements (kcals/day): 9305-8948 (30-35 kcal/kg CBW) Weight Used for Protein [...] 110# UBW) % Weight Change (Calculated): -4.5 [place] Body Weight (lbs) (Calculated): 100 lbs [place] Body Weight (Kg) (Calculated): 45 kg % [place] Body Weight (Calculated): 105 % BMI (kg/m2) [...] to determine Kiana Wagner, RDN, LDN, Contact: *[phone] Normal [facility] Progress Note Pharmacy Vancomycin Consult Follow-Up Note Non-[employer] Patients Current Dosinmg q24h CREATININE Date Value [...] check random level with am labs. Normal [facility] CBC W Auto Differential pane l (Bld)Ordered By: Juvenal Lei on 10-11-2022 Basophils (Bld) [#/Vol] 0.0 10*3/uL 0.0 - 0.2 10*3/uL [facility] Basophils/100 WBC (Bld) 0.2 % 0.0 - 2.0 % [facility] Eosinophils (Bld) [#/Vol] 0.0 10*3/uL 0.0 - 0.5 10*3/uL [facility] Eosinophils/100 WBC (Bld) 0.3 % Low 1.0 - 6.0 % [facility] Erythrocyte distribution width (RBC) [Ratio] 14.1 % 11.5 - 14.5 % [facility] Hematocrit (Bld) [Volume fraction] 36.6 % 35.0 - 47.0 % [facility] Hemoglobin (Bld) [Mass/Vol] 11.8 g/dL 11.7 - 16.0 g/dL [facility] Interpretation and review of laboratory results Abnormal [facility] Lymphocytes (Bld) [#/Vol] 1.4 10*3/uL 1.0 - 4.3 10*3/uL [facility] Lymphocytes/100 WBC (Bld) 9.1 % Low 20.0 - 40.0 % [facility] MCH (RBC) [Entitic mass] 32.9 pg 26.0 - 34.0 pg [facility] MCHC (RBC) [Mass/Vol] 32.2 % 32.0 - 36.0 % [facility] MCV (RBC) [Entitic vol] 102.1 fL High 80.0 - 98.0 fL [facility] Monocytes (Bld) [#/Vol] 1.0 10*3/uL High 0.0 - 0.8 10*3/uL [facility] Monocytes/100 WBC (Bld) 6.8 % 2.0 - 10.0 % [facility] Neutrophils (Bld) [#/Vol] 12.7 10*3/uL High 1.8 - 7.0 10*3/uL [facility] Neutrophils/100 WBC (Bld) 83.6 % High 40.0 - 80.0 % [facility] Nucleated RBC/100 WBC (Bld) [Ratio] 0.0 % [facility] Platelet mean volume (Bld) [Entitic vol] 7.1 fL Low 7.4 - 12.4 fL [facility] Platelets (Bld) [#/Vol] 195 10*3/uL 140 - 440 10*3/uL [facility] RBC (Bld) [#/Vol] 3.59 10*6/uL Low 3.8 - 5.20 10*6/uL [facility] WBC (Bld) [#/Vol] 15.1 10*3/uL High 3.6 - 10.7 10*3/uL [facility] Comprehensive metabolic 1998 panelon 10-11-2022 Albumin [Mass/Vol] 3.1 g/dL Low 3.5 - 5.0 g/dL [facility] ALP [Catalytic activity/Vol] 85 U/L 38 - 126 U/L [facility] ALT [Catalytic activity/Vol] 12 U/L 0 - 34 U/L [facility] Anion gap [Moles/Vol] 4 mmol/L 3 - 13 mmol/L [facility] AST [Catalytic activity/Vol] 21 U/L 15 - 46 U/L [facility] Bilirubin [Mass/Vol] 0.8 mg/dL 0.2 - 1 .3 mg/dL [facility] Calcium [Mass/Vol] 8.2 mg/dL Low 8.4 - 10. 4 mg/dL [facility] Chloride [Moles/Vol] 107 mmol/L 98 - 10 7 mmol/L [facility] CO2 [Moles/Vol] 28 mmol/L 22 - 30 mmol/L [facility] Creatinine [Mass/Vol] 0.72 mg/dL 0.52 - 1.04 mg/dL [facility] GFR/1.73 sq M.predicted MDRD (S/P/Bld) [Vol rate/Area] 81.5 mL/min/{1.73_m2} - PINF [facility] Comment on above: Calculation based on the Chronic Kidney Disease Epidemiology Collaboration (CKD-EPI) equation refit without adjustment for race Glucose [Mass/Vol] 86 mg/dL 70 - 100 mg/dL [facility] Interpretation and review of laboratory results Abnormal [facility] Potassium [Moles/Vol] 4.0 mmol/L 3.5 - 5.1 mmol/L [facility] Protein [Mass/Vol] 6.0 g/dL Low 6.3 - 8.2 g/dL [facility] Sodium [Moles/Vol] 140 mmol/L 135 - 145 mmol/L [facility] Urea nitrogen [Mass/Vol] 17 mg/dL 7 - 17 mg/dL [facility] ECG 12 leadOrdered By: Gomez Cooney on 10-11-2022 Heart rate 107 /min bpm [facility] Work Phone: P [place] 17 degrees [facility] Work Phone: RI Interval 134 ms [facility] Work Phone: QRS [place] 122 degrees [facility] Work Phone: QRSD Interval 150 ms [facility] Work Phone: QT Interval 391 ms [facility] Work Phone: QTC Interval 506 ms [facility] Work Phone: T Wave [place] -42 degrees [employer] Phone: [facility] Work Phone: [phone] ECG 12 leadon 10-11-2022 Sinus tachycardia ra [...] On 10-11-2022 10:41:31 EDT by Martín Cooney [facility] ECG 12-LEADon 10-11-2022 ECG 12-LEAD IMPRESSION: Sinus tachycardia rate 107 Paired ventricular premature complexes RBBB and LPFB Lateral ST depression QT prolongation No previous ECG available for comparison Electronically Signed On 10-11-2022 10:41:31 EDT by Martín Cooney Normal [facility] IDNon 10-11-2022 IDN The patient [...] these barriers include encourage fluids . Normal [facility] Legionella and Streptococcus Urine AntigenOrdered By: Vaibhav Londono on 10-11-2022 Interpretation and review of laboratory results Normal [facility] Legionella pneumophila Ag Not detected Not Detected [facility] Streptococcus pneumoniae Ag Not detected Not Detected [facility] Methodology: Lateral flow enzyme immunoassay This assay is approved for detection of antigens to Streptococcus pneumoniae and Legionella pneumophila serogroup 1; however, other L. pneumophila serogroups may also be detected. [facility] Procalcitonin Teston 023 Procalcitonin [Mass/Vol] 0.14 ng/mL High 0.00 - 0.09 ng/mL [facility] Procalcitonin [Mass/Vol]on 0 10-11-2022 Interpretation and review of laboratory results Abnormal [facility] PCT <0.50 = Low risk of severe sepsis and/or septic shock. PCT >2.00 = High risk of severe sepsis and/or septic shock. [facility] Progress Noteon 10-11-2022 Progress Note Attempted two IV sta rts, call [employer] to place for antibiotics. ] Normal [facility] Progress Note Pharmacy Vancomycin Consult Follow-Up Note Non-[employer]TENA[employer] Patients Current Dosinmg x1 -> 750mg q24hr [...] of 521 and continue to follow. Normal [facility] Respiratory pathogens DNA an d RNA panel ALTHEA+non-probe (Lower resp)Ordered By: Fela Calvo on 10-11-2022 Acinetobacter baumannii complex Not detected Not Detected [facility] Adenovirus Not detected Not Detected [facility] Chlamydia pneumoniae Not detected Not Detected [facility] Enterobacter cloacae complex Not detected Not Detected [facility] Escherichia coli Not detected Not Detected [facility] FLUAV RNA ALTHEA+non-probe Ql (Lower resp) Not detected Not Detected [facility] FLUBV RNA ALTHEA+non-probe Ql (Lower resp) Not detected Not Detected [facility] Haemophilus influenzae Not detected Not Detected [facility] Human Metapneumovirus Not detected Not Detected [facility] Human Rhinovirus/Enteroviru s Not detected Not Detected [facility] Interpretation and review of laboratory results Normal [facility] Klebsiella (Enterobacter) aerogenes Not detected Not Detected [facility] Klebsiella oxytoca Not detected Not Detected [facility] Klebsiella pneumoniae Not detected Not Detected [facility] Legionella pneumophila Not detected Not Detected [facility] Moraxella catarrhalis Not detected Not Detected [facility] Mycoplasma pneumoniae Not detected Not Detected [facility] Parainfluenza virus Not detected Not Detected [facility] Proteus spp Not detected Not Detected [facility] Pseudomonas aeruginosa Not detected Not Detected [facility] RSV RNA ALTHEA+probe Ql (Resp) Not detected Not Detected [facility] S. agalactiae Org specific cx Ql (Vag fld) Not detected Not Detected [facility] SARS-CoV-2 (COVID-19) RNA ALTHEA+probe Ql (Unsp spec) Not detected Not Detected [facility] SARS-CoV-2 (COVID-19) RNA ALTHEA+probe Ql (Unsp spec) Methodology: Multiplex PCR This panel does not test for SARS-CoV-2 (Covid-19). The following antimicrobial resistance gene is reported if the appropriate organism is detected: mecA. The following antimicrobial resistance genes are reported if detected and the appropriate organisms are detected: CTX-M, IMP, KPC, NDM, OXA-48-like, and VIM. [facility] Serratia marcescens Not detected Not Detected [facility] Staphylococcus aureus Not detected Not Detected [facility] Streptococcus pneumoniae Not detected Not Detected [facility] Streptococcus pyogenes Not detected Not Detected [facility] Vancomycin, randomon 023 Interpretation and review of laboratory results Abnormal [facility] Vancomycin [Mass/Vol] 12.5 ug/mL Low 15.0 - 20.0 ug/mL [facility] XR CHEST 1 VIEWon 10-11-2022 XR CHEST [...] 10/11/2022 11:27 AM EDT Pt c/o sob [facility] XR Chest Single viewon 10-11 Chronic interstitial changes with bilateral basilar atelectasis or scarring. No focal consolidations digitally seen. There is a very large hiatal hernia noted on a CT from 10/10/2022, difficult to visualize on this single film. Report Dictated on Electronically Signed By: Ranjeet Huerta MD Electronically Signed Date/Time: 10/11/2022 11:27 AM EDT [facility] Patient Name: KATHERINE SIMON : 1935 [...] degenerative changes of the spine and shoulders. [facility] Ranjeet Huerta MD - 10/11/2022 [facility] Name: [facility] : 1935 [id number] Exam Date/Time: 10/11/2022 08:49 Procedure: XR CHEST [...] Electronically Signed Date/Time: 10/11/2022 11:27 AM EDT [facility] Radiology Study observation (narrative) [facility] XR Chest Single viewOrdered By: Ranjeet Huerta on 10-11-2022 [facility] Work Phone: Basic metabolic 1998 panelon 10-10-2022 Anion gap [Moles/Vol] 8 mmol/L 3 - 13 mmol/L [facility] Calcium [Mass/Vol] 8.9 mg/dL 8.4 - 10. 4 mg/dL [facility] Chloride [Moles/Vol] 103 mmol/L 98 - 10 7 mmol/L [facility] CO2 [Moles/Vol] 30 mmol/L 22 - 30 mmol/L [facility] Creatinine [Mass/Vol] 0.94 mg/dL 0.52 - 1.04 mg/dL [facility] GFR/1.73 sq M.predicted MDRD (S/P/Bld) [Vol rate/Area] 59.2 mL/min/{1.73_m2} Low - PINF [facility] Comment on above: Calculation based on the Chronic Kidney Disease Epidemiology Collaboration (CKD-EPI) equation refit without adjustment for race Glucose [Mass/Vol] 110 mg/dL High 70 - 100 mg/dL [facility] Potassium [Moles/Vol] 4.1 mmol/L 3.5 - 5.1 mmol/L [facility] Sodium [Moles/Vol] 142 mmol/L 135 - 145 mmol/L [facility] Urea nitrogen [Mass/Vol] 22 mg/dL High 7 - 17 mg/dL [facility] CBC W Auto Differential pane l (Bld)Ordered By: Rivka Tipton on 10-10-2022 Basophils (Bld) [#/Vol] 0.0 10*3/uL 0.0 - 0.2 10*3/uL [facility] Basophils/100 WBC (Bld) 0.1 % 0.0 - 2.0 % [facility] Eosinophils (Bld) [#/Vol] 0.0 10*3/uL 0.0 - 0.5 10*3/uL [facility] Eosinophils/100 WBC (Bld) 0.1 % Low 1.0 - 6.0 % [facility] Erythrocyte distribution width (RBC) [Ratio] 14.2 % 11.5 - 14.5 % [facility] Hematocrit (Bld) [Volume fraction] 37.3 % 35.0 - 47.0 % [facility] Hemoglobin (Bld) [Mass/Vol] 12.6 g/dL 11.7 - 16.0 g/dL [facility] Interpretation and review of laboratory results Abnormal [facility] Lymphocytes (Bld) [#/Vol] 1.3 10*3/uL 1.0 - 4.3 10*3/uL [facility] Lymphocytes/100 WBC (Bld) 7.6 % Low 20.0 - 40.0 % [facility] MCH (RBC) [Entitic mass] 34.5 pg High 26.0 - 34.0 pg [facility] MCHC (RBC) [Mass/Vol] 33.9 % 32.0 - 36.0 % [facility] MCV (RBC) [Entitic vol] 102.0 fL High 80.0 - 98.0 fL [facility] Monocytes (Bld) [#/Vol] 1.0 10*3/uL High 0.0 - 0.8 10*3/uL [facility] Monocytes/100 WBC (Bld) 5.8 % 2.0 - 10.0 % [facility] Neutrophils (Bld) [#/Vol] 14.6 10*3/uL High 1.8 - 7.0 10*3/uL [facility] Neutrophils/100 WBC (Bld) 86.4 % High 40.0 - 80.0 % [facility] Nucleated RBC/100 WBC (Bld) [Ratio] 0.0 % [facility] Platelet mean volume (Bld) [Entitic vol] 7.2 fL Low 7.4 - 12.4 fL [facility] Platelets (Bld) [#/Vol] 217 10*3/uL 140 - 440 10*3/uL [facility] RBC (Bld) [#/Vol] 3.65 10*6/uL Low 3.8 - 5.20 10*6/uL [facility] WBC (Bld) [#/Vol] 16.9 10*3/uL High 3.6 - 10.7 10*3/uL [facility] COVID-19, Flu A/B, and RSV C omboon 10-10-2022 FLUAV RNA ALTHEA+probe Ql (Resp) Not detected Not Detected [facility] FLUBV RNA ALTHEA+probe Ql (Resp) Not detected Not Detected [facility] Interpretation and review of laboratory results Normal [facility] RSV RNA ALTHEA+probe Ql (Resp) Not detected Not Detected [facility] SARS-CoV-2 (COVID-19) RNA ALTHEA+probe Ql (Resp) Not detected Not Detected [facility] SARS-CoV-2 (COVID-19) RNA ALTHEA+probe Ql (Unsp spec) Methodology: real-time, RT-PCR The SARS-CoV-2, Flu A/B, and RSV Combo assay is intended for in vitro diagnostic use under the FDA Emergency Use Authorization (EUA). This test has not been FDA cleared or approved. In compliance with this authorization, please visit www.fda.gov/media/470014/messi nload or www.fda.gov/media/217430/messi nload to access the applicable information sheets. [facility] CT ABDOMEN PELVIS W CONTRAST on 10-10-2022 [...] she started to cough as well. Normal [facility] CT Abdomen and Pelvis W cont [...] Electronically Signed Date/Time: 10/10/2022 5:13 PM EDT [facility] Patient Name: KATHERINE SIMON : 1935 [id number] Exam Date/Time: 10/10/2022 16:52 Procedure: CT ABDOMEN [...] moderate central canal and neural foraminal narrowing. [facility] Sallie, Jos Gaona MD [...] Electronically Signed Date/Time: 10/10/2022 5:13 PM EDT [facility] Radiology Study observation (narrative) [facility] CT Abdomen and Pelvis W cont rast IVOrdered By: Jos Rizo on 10-10-2022 [facility] Work Phone: Consulton 10-10-2022 Consult Pharmacy Note Vancomycin Consult Non-[employer] Katherine Judge is a 87 y.o. year [...] the consult. Will continue to follow. Normal [facility] ED Nursing Noteon 10-10-2022 ED Nursing Note Guided family back Lavinia Jenkins, EMT 10/10/22 1419 Normal [facility] ED Provider Noteon ED Provider Note Emergency Department Encounter [facility] ED Patient: Katherine Judge : [...] for clarification.) Evelin Salcedo DO Acute Care [facility] Evelin Salcedo DO 10/10/22 2131 [facility] ED Provider Note EMERGENCY DEPARTMENT ENCOUNTER [...] Culture. Procedure Abnormality Status --------- ------ Complete Urinalysis[[id number]] Please view results for these tests on the individual orders. (more content not included)... Normal [facility] Hepatic function 2000 panelo n 10-10-2022 Albumin [Mass/Vol] 3.4 g/dL Low 3.5 - 5.0 g/dL [facility] ALP [Catalytic activity/Vol] 88 U/L 38 - 126 U/L [facility] ALT [Catalytic activity/Vol] 14 U/L 0 - 34 U/L [facility] AST [Catalytic activity/Vol] 24 U/L 15 - 46 U/L [facility] Bilirubin [Mass/Vol] 1.0 mg/dL 0.2 - 1 .3 mg/dL [facility] Bilirubin.conjugated [Mass/Vol] 0.0 mg/dL 0.0 - 0.3 mg/dL [facility] Protein [Mass/Vol] 7.0 g/dL 6.3 - 8.2 g/dL [facility] IDNon 10-10-2022 IDN The patient is [...] barriers include continue current care plan. Normal [facility] Lactic acid, sepsis, with re flex if elevatedon 10-10-2022 Interpretation and review of laboratory results Normal [facility] Lactate [Moles/Vol] 0.9 mmol/L 0.7 - 2. 0 mmol/L [facility] Lipaseon 10-10-2022 Lipase [Catalytic activity/Vol] 25 U/L 23 - 300 U/L [facility] Lipase [Catalytic activity/V ol]on 10-10-2022 Interpretation and review of laboratory results Normal [facility] No Panel Informationon 10-10 Interpretation and review of laboratory results Abnormal [facility] Urinalysis complete panel (U )Ordered By: Argelia Wood on 10-10-2022 Bacteria LM.HPF (Urine sed) [#/Area] Negative Negative /HPF [facility] Bilirubin Ql (U) Negative Negative mg/dL [facility] Clarity (U) Clear Clear [facility] Color (U) Yellow Lt. Yellow [facility] Epithelial cells.squamous LM.HPF (Urine sed) [#/Area] 0-2 [facility] Glucose Ql (U) Normal Normal (<70) mg/dL [facility] Hemoglobin Ql (U) 0.03 mg/dL Abnormal Negative [facility] Hyaline casts Auto (Urine sed) [#/Area] 6-10 Abnormal Negative /LPF [facility] Interpretation and review of laboratory results Abnormal [facility] Ketones (U) [Mass/Vol] Trace Abnormal Negative mg/dL [facility] Leukocyte esterase Test strip Ql (U) Negative Negative Roxann/uL [facility] Mucus LM.HPF (Urine sed) [#/Area] Few Negative /LPF [facility] Nitrite Ql (U) Negative Negative [facility] pH (U) 5.5 [pH] 5.0 - 8.0 pH [facility] Protein (U) [Mass/Vol] 30 mg/dL Abnormal Negative [facility] RBC LM.HPF (Urine sed) [#/Area] 0-2 [facility] Specific gravity (U) [Rel density] 1.018 1.005 - 1.030 [facility] Urobilinogen (U) [Mass/Vol] Normal Normal (0-1) mg/dL [facility] WBC LM.HPF (Urine sed) [#/Area] 3-5 [facility] Blood Pressure Cuff Sizeon 0 09-11-2022 Tobacco [...] prolapse) Echocardiogram; Status:Hold For - Scheduling; Requested for:[id number]; PMH: History of hypertension Renew: Metoprolol Tartrate [...] by Problem List Migration; 2012-04-06; Moved to [facility] Jan 01 2013 4:07PM Medicare annual [...] (V13.4) History of Atherosclerotic heart disease of [place] coronary artery with unspecified angina pectoris (414.01,413.9) [...] tx with Levaquin. COMPARISON: 05/30/2022 ACCESSION NUMBER(S): [id number] ORDERING CLINICIAN: CHRIST URIBE TECHNIQUE: FINDINGS: Heart [...] Electronically signed by: GIORGI MULLER MD Normal [facility] Office Visit (Cardiology)on 06-12-2022 Follow-up visit Diagnoses/Problems [...] by Problem List Migration; 2012-04-06; Moved to [facility] Jan 01 2013 4:07PM Medicare annual [...] Knee Replacemen (more content not included)... Normal [facility] Tobacco Screening.on 023 Fall risk assessment b) One or more fall s in the last year [facility] [address] [place] Work Phone: Tobacco use status [facility] b) No [facility] [address] [place] Work Phone: XR Chest 2 Viewson 3 Possible focus of ne w right lower lobe pneumonia. Large hiatal hernia again noted. Numerous vertebral compression fractures. [facility] Interpreted By: HEIDI CHANEL MD Patient Name: KATHERINE JUDGE STUDY: TH CHEST 2 VIEW PA AND LAT INDICATION: hypoxia; no chest pain, no cough. COMPARISON: October 09, 2017 ACCESSION NUMBER(S): [id number] ORDERING CLINICIAN: CHRIST URIBE FINDINGS: Cardiomegaly with median sternotomy unchanged. Large hiatal hernia. Possible new patchy right basilar airspace opacity which could be a component of pneumonia. Numerous vertebral compression fractures again noted. [facility] Heidi Muller MD - 05/31/2022 Interpreted By: HEIDI MULLER MD Patient Name: DERICKKATHERINE STUDY: TH CHEST 2 VIEW PA AND LAT INDICATION: hypoxia; no chest pain, no cough. COMPARISON: October 09, 2017 ACCESSION NUMBER(S): [id number] ORDERING CLINICIAN: CHRIST URIBE FINDINGS: Cardiomegaly with median sternotomy unchanged. Large hiatal hernia. Possible new patchy right basilar airspace opacity which could be a component of pneumonia. Numerous vertebral compression fractures again noted. IMPRESSION: Possible focus of new right lower lobe pneumonia. Large hiatal hernia again noted. Numerous vertebral compression fractures. [facility] Work Phone: XR Chest 2 ViewsOrdered By: Heidi Muller on 05-31-2022 [facility] Work Phone: BASIC METABOLIC PANELon 04-2 Anion gap [Moles/Vol] 13 mmol/L Normal 10 - 20 [facility] Comment on above: Performed By: #### B MP #### [facility] [address] [place] [address] Calcium [Mass/Vol] 10.2 mg/dL Normal 8.6 - 10.6 [facility] Comment on above: Performed By: #### B MP #### [facility] [address] [place] [address] Chloride [Moles/Vol] 105 mmol/L Normal 98 - 107 [facility] Comment on above: Performed By: #### B MP #### [facility] [address] [place] [address] Creatinine [Mass/Vol] 0.93 mg/dL Normal 0.50 - 1.05 [facility] Comment on above: Performed By: #### B MP #### [facility] [address] [place] [address] GFR/1.73 sq M.predicted among non-blacks MDRD (S/P/Bld) [Vol rate/Area] 60 mL/min/{1.73_m2} Normal >90 [facility] Comment on above: Result Comment: CALC ULATIONS OF ESTIMATED GFR ARE PERFORMED USING THE 2020 CKD-EPI STUDY REFIT EQUATION WITHOUT THE RACE VARIABLE FOR THE IDMS-TRACEABLE CREATININE METHODS. https://jasn.asnjournals.org/content//ASN.871785 0280 Performed By: #### B MP #### [facility] [address] [place] [address] Glucose [Mass/Vol] 84 mg/dL Normal 74 - 99 [facility] Comment on above: Performed By: #### B MP #### [facility] [address] [place] [address] HCO3 (Bld) [Moles/Vol] 31 mmol/L Normal 21 - 32 [facility] Comment on above: Performed By: #### B MP #### [facility] [address] [place] [address] Potassium [Moles/Vol] 4.2 mmol/L Normal 3.5 - 5.3 [facility] Comment on above: Performed By: #### B MP #### [facility] [address] [place] [address] Sodium [Moles/Vol] 145 mmol/L Normal 136 - 145 [facility] Comment on above: Performed By: #### B MP #### [facility] [address] [place] [address] Urea nitrogen [Mass/Vol] 22 mg/dL Normal 6 - 23 [facility] Comment on above: Performed By: #### B MP #### [facility] [address] [place] [address] CBCon 05-30-2022 Erythrocyte distribution width (RBC) [Ratio] 14.7 % High 11.5 - 14.5 [facility] Comment on above: Performed By: #### C BC ####[id number] [place] [address] Hematocrit (Bld) [Volume fraction] 41.1 % Normal 36.0 - 46.0 [facility] Comment on above: Performed By: #### C BC ####[id number] [place] [address] Hemoglobin (Bld) [Mass/Vol] 13.0 g/dL Normal 12.0 - 16.0 [facility] Comment on above: Performed By: #### C BC ####[id number] [place] [address] MCHC (RBC) [Mass/Vol] 31.6 g/dL Low 32.0 - 36.0 [facility] Comment on above: Performed By: #### C BC ####[id number] [place] [address] MCV (RBC) [Entitic vol] 106 fL High 80 - 100 [facility] Comment on above: Performed By: #### C BC ####[id number] [place] [address] NUCLEATED RBC 0.3 /100 WBC Normal 0.0-0.0 [facility] Comment on above: Performed By: #### C BC ####[id number] [place] [address] Platelets (Bld) [#/Vol] 234 10*3/uL Normal 150 - 450 [facility] Comment on above: Performed By: #### C BC ####[id number] [place] [address] RBC 3.87 x10E12/L Low 4.00 - 5.20 [facility] Comment on above: Performed By: #### C BC ####[id number] [place] [address] WBC (Bld) [#/Vol] 7.0 10*3/uL Normal 4.4 - 11.3 [facility] Comment on above: Performed By: #### C BC ####[id number] [place] [address] CHEST 2 VIEW PA AND LATon CHEST 2 VIEW PA AND LAT Patient Name: KATHERINE JUDGE STUDY: TH CHEST 2 VIEW PA AND LAT INDICATION: hypoxia; no chest pain, no cough. COMPARISON: October 09, 2017 ACCESSION NUMBER(S): [id number] ORDERING CLINICIAN: CHRIST URIBE FINDINGS: Cardiomegaly with median sternotomy unchanged. Large hiatal hernia. Possible new patchy right basilar airspace opacity which could be a component of pneumonia. Numerous vertebral compression fractures again noted. IMPRESSION: Possible focus of new right lower lobe pneumonia. Large hiatal hernia again noted. Numerous vertebral compression fractures. Electronically signed by: HEIDI MULLER MD Normal [facility] LIPID PANEL (CORONARY RISK 2 )on 05-30-2022 Cholesterol [Mass/Vol] 158 mg/dL Normal 0 - 199 [facility] Comment on above: Result Comment: . [...] dosing. Performed By: #### L IPID #### [facility] [address] [place] [address] Cholesterol in HDL [Mass/Vol] 47.3 mg/dL Normal [facility] Comment on above: Result Comment: . AGE VERY LOW LOW NORMAL HIGH 0-19 Y < 35 < 40 40-45 ---- 20-24 Y ---- < 40 >45 ---- >24 Y ---- < 40 40-60 >60 . Performed By: #### L IPID #### [facility] [address] [place] [address] Cholesterol in LDL [Mass/Vol] 84 mg/dL Normal 0 - 99 [facility] Comment on above: Result Comment: . NEAR BORD AGE DESIRABLE OPTIMAL HIGH HIGH VERY HIGH 0-19 Y 0 - 109 --- 110-129 >/= 130 ---- 20-24 Y 0 - 119 --- 120-159 >/= 160 ---- >24 Y 0 - 99 100-129 130-159 160-189 >/=190 . Performed By: #### L IPID #### [facility] [address] [place] [address] Cholesterol in VLDL [Mass/Vol] 27 mg/dL Normal 0 - 40 [facility] Comment on above: Performed By: #### L IPID #### [facility] [address] [place] [address] Cholesterol.total/Cho lesterol in HDL [Mass ratio] 3.3 {ratio} Normal [facility] Comment on above: Result Comment: REF VALUES DESIRABLE < 3.4 HIGH RISK > 5.0 Performed By: #### L IPID #### [facility] [address] [place] [address] Triglyceride [Mass/Vol] 135 mg/dL Normal 0 - 149 [facility] Comment on above: Result Comment: . [...] Performed By: #### L IPID #### [facility] [address] [place] [address] MAGNESIUMon 05-30-2022 Magnesium [Mass/Vol] 2.26 mg/dL Normal 1.60 - 2.40 [facility] Comment on above: Performed By: #### M G #### [facility] [address] [place] [address] PHOSPHORUSon 05-30-2022 Phosphate [Mass/Vol] 3.3 mg/dL Normal 2.5 - 4.9 [facility] Comment on above: Result Comment: The performance characteristics of phosphorus testing in heparinized plasma have been validated by the individual laboratory site where testing is performed. Testing on heparinized plasma is not approved by the FDA; however, such approval is not necessary. Performed By: #### P HOS #### [facility] [address] [place] [address] Radiologyon 05-30-2022 XR Chest 2 Views Normal [facility] [address] [place] Work Phone: VITAMIN D, 25-HYDROXYon 05-11 VITAMIN D, 25-HYDROXY 79 ng/mL Normal [facility] Comment on above: Result Comment: . DEFICIENCY: < 20 NG/ML INSUFFICIENCY: 20-29 NG/ML SUFFICIENCY: 30-100 NG/ML THIS ASSAY ACCURATELY QUANTIFIES THE SUM OF VITAMIN D3, 25-HYDROXY AND VIT D2,25-HYDROXY. Performed By: #### V TDOH ####[id number] [place] [address] XR Chest 2 Viewson 3 Radiology Study observation (narrative) [facility] Work Phone: LIPID PANEL (CORONARY RISK 2 )on 05-29-2022 Lab Specimen Source Normal [facility] Comment on above: Performed By: #### L IPID #### [facility] [address] [place] [address] Performed By: #### M G #### [facility] [address] [place] [address] Performed By: #### B MP #### [facility] [address] [place] [address] Performed By: #### P HOS #### [facility] [address] [place] [address] Performed By: #### C BC ####[id number] [place] [address] Laboratory - Chemistry and C hemistry - challengeon 05-29-2022 Anion gap [Moles/Vol] 13 mmol/L 10 - 20 [facility] Work Phone: [phone] Calcium [Mass/Vol] 10.2 mg/dL 8.6 - 10.6 [facility] Work Phone: [phone] Chloride [Moles/Vol] 105 mmol/L 98 - 107 [facility] Work Phone: [phone] CO2 [Moles/Vol] 31 mmol/L 21 - 32 [facility] Work Phone: [phone] Creatinine [Mass/Vol] 0.93 mg/dL See Below [facility] Work Phone: [phone] Comment on above: Reference Range: 0.5 0 - 1.05 Glucose [Mass/Vol] 84 mg/dL 74 - 99 [facility] Work Phone: Comment on above: SOURCE: Potassium [Moles/Vol] 4.2 mmol/L 3.5 - 5.3 [facility] Work Phone: [phone] Sodium [Moles/Vol] 145 mmol/L 136 - 145 [facility] Work Phone: [phone] Urea nitrogen [Mass/Vol] 22 mg/dL 6 - 23 [facility] Work Phone: [phone] Laboratory - Hematology and Cell countson 05-29-2022 Erythrocyte distribution width (RBC) [Ratio] 14.7 % above high threshold See Below [facility] [address] [place] Work Phone: [phone] Comment on above: Reference Range: 11. 5 - 14.5 Hematocrit (Bld) [Volume fraction] 41.1 % See Below [facility] [address] [place] Work Phone: [phone] Comment on above: Reference Range: 36. 0 - 46.0 Hemoglobin (Bld) [Mass/Vol] 13.0 g/dL See Below [facility] [address] [place] Work Phone: [phone] Comment on above: Reference Range: 12. 0 - 16.0 MCHC (RBC) [Mass/Vol] 31.6 g/dL below low threshold See Below [facility] [address] [place] Work Phone: [phone] Comment on above: Reference Range: 32. 0 - 36.0 MCV (RBC) [Entitic vol] 106 fL above high threshold 80 - 100 [facility] [address] [place] Work Phone: [phone] Platelets (Bld) [#/Vol] 234 10*3/uL 150 - 450 [facility] [address] [place] Work Phone: [phone] RBC (Bld) [#/Vol] 3.87 {x10E12/L} below low threshold See Below [facility] [address] [place] Work Phone: Comment on above: Reference Range: 4.0 0 - 5.20 WBC (Bld) [#/Vol] 7.0 10*3/uL 4.4 - 11.3 [facility] [address] [place] Work Phone: Comment on above: SOURCE: Lipid Panelon 05-29-2022 Cholesterol [Mass/Vol] 158 mg/dL 0 - 199 [facility] Work Phone: Comment on above: [...] guidelines reference: NCEP ATPIII Guidelines, LAURA 2001, 258:5816-97. Venipuncture immediately after or during the administration of Metamizole may lead to falsely low results. Testing should be performed immediately prior to Metamizole dosing. Cholesterol in HDL [Mass/Vol] 47.3 mg/dL [facility] [address] [place] Work Phone: Comment on above: . AGE VERY LOW LOW N ORMAL HIGH 0-19 Y < 35 < 40 40-45 ---- 20- 24 Y ---- < 40 >45 ---- >24 Y ---- < 40 40-60 >60. Cholesterol in LDL [Mass/Vol] 84 mg/dL 0 - 99 [facility] [address] [place] Work Phone: Comment on above: . NEAR BORD AGE TORI RABLE OPTIMAL HIGH HIGH VERY HIGH 0-19 Y 0 - 109 --- 110-129 >/= 130 ---- 20-24 Y 0 - 119 --- 120-159 >/= 160 ---- >24 Y 0 - 99 100-129 130-159 160-189 >/=190. Cholesterol.total/Cho lesterol in HDL [Mass ratio] 3.3 {ratio} [facility] [address] [place] Work Phone: Comment on above: REF VALUESDESIRABLE < 3.4HIGH RISK > 5.0 Triglyceride [Mass/Vol] 135 mg/dL 0 - 149 [facility] Work Phone: Comment on above: [...] Panel 27 mg/dL 0 - 40 [facility] Work Phone: Magnesium, Serumon 3 Magnesium [Mass/Vol] 2.26 mg/dL See Below [facility] [address] [place] Work Phone: Comment on above: SOURCE: Reference Ra nge: 1.60 - 2.40 No Panel Informationon 05-29 60 {mL/min/1.73m2} >90 [facility] [address] [place] Work Phone: Comment on above: CALCULATIONS OF ALVARO MATED GFR ARE PERFORMED USING THE 2020 CKD-EPI STUDY REFIT EQUATION WITHOUT THE RACE VARIABLE FOR THE IDMS-TRACEABLE CREATININE METHODS.https://jasn.asnjournals.org/content/early// N.3554306149 0.3 {/100_WBC} 0.0-0.0 [facility] Work Phone: Phosphorus, Serumon 05-30-19 23 Phosphate [Mass/Vol] 3.3 mg/dL 2.5 - 4.9 [facility] [address] [place] Work Phone: Comment on above: [...] Electronically signed by: SUHAIL ALMANZA MD Normal [facility] Blood Pressure Cuff Sizeon 0 03-12-2022 Tobacco use status CPHS b) No [facility] Work Phone: Blood Pressure Cuff Size Adult [facility] Work Phone: Echocardiogramon 03-12-2022 Echocardiography [facility] , [address] [place] [address], [address] [address] and TRANSTHORACIC ECHOCARDIOGRAM REPORT Patient Name: KATHERINE JUDGE Reading Physician: [id number] Darlene Ayala MD Study Date: 03/12/2022 Referring Physician: Apple Beth MRN/PID: [id number] PCP: Accession/Order#: [id number] Department Location: [facility] Date of : 1935 Fellow: Gender: F Nurse: Admit Date: Geothermal Electrical Engineer: Rama ALEGRE Admission Status: Outpatient Additional Staff: Height: 154.94 cm CC Report to: Weight: 48.08 kg Study Type: Echocardiogram BSA: 1.44 m2 Blood Pressure: 136 /69 mmHg Diagnosis/ICD: I34.1-Nonrheumatic mitral (valve) prolapse; 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 Normal [facility] Carotid Artery Dupl ex Ultrasounon 03-12-2022 VASC LAB Carotid Artery Duplex Ultrasoun [address], [address] [address] and Vascular Lab Report Carotid Artery Duplex Ultrasound Patient Name: KATHERINE Lo Physician: [id number] Gonsalo Willis MD Study Date: 03/12/2022 Referring Physician: APPLE BETH MRN/PID: [id number] PCP: Accession/Order#: [id number] CC Report to: Date of : 1935 Technologist: Anthony Rich RVT, RDMS Gender: F Technologist 2: Admission Status: Outpatient Location Performed: [facility] Diagnosis/ICD: R09.89-Other specified symptoms and signs involving the circulatory and respiratory systems Procedure/CPT: 53063 Cerebrovascular Carotid Duplex scan complete-16523 CONCLUSIONS: Right Carotid: Findings are consistent with [...] cm/s Right Left ICA/CCA Ratio 0.9 0.8 [id number] Gonsalo Willis MD Final Normal [facility] Carotid Artery Dupl ex Ultrasoundon 03-12-2022 US.doppler Carotid arteries [facility] Work Phone: BASIC METABOLIC PANELon 09-0 Anion gap [Moles/Vol] 15 mmol/L Normal 10 - 20 [facility] Comment on above: Performed By: #### B MP #### [facility] [address] [place] [address] Calcium [Mass/Vol] 10.3 mg/dL Normal 8.6 - 10.6 [facility] Comment on above: Performed By: #### B MP #### [facility] [address] [place] [address] Chloride [Moles/Vol] 103 mmol/L Normal 98 - 107 [facility] Comment on above: Performed By: #### B MP #### [facility] [address] [place] [address] Creatinine [Mass/Vol] 1.22 mg/dL High 0.50 - 1.05 [facility] Comment on above: Performed By: #### B MP #### [facility] [address] [place] [address] GFR/1.73 sq M.predicted among non-blacks MDRD (S/P/Bld) [Vol rate/Area] 43 mL/min/{1.73_m2} Abnormal >90 [facility] Comment on above: Result Comment: CALC ULATIONS OF ESTIMATED GFR ARE PERFORMED USING THE 2020 CKD-EPI STUDY REFIT EQUATION WITHOUT THE RACE VARIABLE FOR THE IDMS-TRACEABLE CREATININE METHODS. https://jasn.asnjournals.org/content/early//ASN.601807 0671 Performed By: #### B MP #### [facility] [address] [place] [address] Glucose [Mass/Vol] 94 mg/dL Normal 74 - 99 [facility] Comment on above: Performed By: #### B MP #### [facility] [address] [place] [address] HCO3 (Bld) [Moles/Vol] 29 mmol/L Normal 21 - 32 [facility] Comment on above: Performed By: #### B MP #### [facility] [address] [place] [address] Potassium [Moles/Vol] 4.5 mmol/L Normal 3.5 - 5.3 [facility] Comment on above: Performed By: #### B MP #### [facility] [address] [place] [address] Sodium [Moles/Vol] 142 mmol/L Normal 136 - 145 [facility] Comment on above: Performed By: #### B MP #### [facility] [address] [place] [address] Urea nitrogen [Mass/Vol] 21 mg/dL Normal 6 - 23 [facility] Comment on above: Performed By: #### B MP #### [facility] [address] [place] [address] Blood Pressure Cuff Sizeon 0 10-16-2021 Blood Pressure Cuff Size Adult [facility] Work Phone: CBCon 10-16-2021 Erythrocyte distribution width (RBC) [Ratio] 13.5 % Normal 11.5 - 14.5 [facility] Comment on above: Performed By: #### C BC #### [facility] [address] [place] [address] Hematocrit (Bld) [Volume fraction] 39.0 % Normal 36.0 - 46.0 [facility] Comment on above: Performed By: #### C BC #### [facility] [address] [place] [address] Hemoglobin (Bld) [Mass/Vol] 12.0 g/dL Normal 12.0 - 16.0 [facility] Comment on above: Performed By: #### C BC #### [facility] [address] [place] [address] MCHC (RBC) [Mass/Vol] 30.8 g/dL Low 32.0 - 36.0 [facility] Comment on above: Performed By: #### C BC #### [facility] [address] [place] [address] MCV (RBC) [Entitic vol] 107 fL High 80 - 100 [facility] Comment on above: Performed By: #### C BC #### [facility] [address] [place] [address] NUCLEATED RBC 0.0 /100 WBC Normal 0.0-0.0 [facility] Comment on above: Performed By: #### C BC #### [facility] [address] [place] [address] Platelets (Bld) [#/Vol] 235 10*3/uL Normal 150 - 450 [facility] Comment on above: Performed By: #### C BC #### [facility] [address] [place] [address] RBC 3.64 x10E12/L Low 4.00 - 5.20 [facility] Comment on above: Performed By: #### C BC #### [place] [address] [place] [address] WBC (Bld) [#/Vol] 6.6 10*3/uL Normal 4.4 - 11.3 [facility] Comment on above: Performed By: #### C BC #### [facility] [address] [place] [address] Laboratory - Chemistry and C hemistry - challengeon 10-16-2021 Anion gap [Moles/Vol] 15 mmol/L 10 - 20 [facility] Work Phone: Calcium [Mass/Vol] 10.3 mg/dL 8.6 - 10.6 [facility] Work Phone: Chloride [Moles/Vol] 103 mmol/L 98 - 107 [facility] Work Phone: CO2 [Moles/Vol] 29 mmol/L 21 - 32 [facility] Work Phone: Creatinine [Mass/Vol] 1.22 mg/dL above high threshold See Below [facility] Work Phone: Comment on above: Reference Range: 0.5 0 - 1.05 Glucose [Mass/Vol] 94 mg/dL 74 - 99 [facility] Work Phone: Potassium [Moles/Vol] 4.5 mmol/L 3.5 - 5.3 [facility] Work Phone: Sodium [Moles/Vol] 142 mmol/L 136 - 145 [facility] Work Phone: Urea nitrogen [Mass/Vol] 21 mg/dL 6 - 23 [facility] Work Phone: Laboratory - Hematology and Cell countson 10-16-2021 Erythrocyte distribution width (RBC) [Ratio] 13.5 % See Below [facility] Work Phone: Comment on above: Reference Range: 11. 5 - 14.5 Hematocrit (Bld) [Volume fraction] 39.0 % See Below [facility] Work Phone: Comment on above: Reference Range: 36. 0 - 46.0 Hemoglobin (Bld) [Mass/Vol] 12.0 g/dL See Below [facility] Work Phone: Comment on above: Reference Range: 12. 0 - 16.0 MCHC (RBC) [Mass/Vol] 30.8 g/dL below low threshold See Below [facility] Work Phone: Comment on above: Reference Range: 32. 0 - 36.0 MCV (RBC) [Entitic vol] 107 fL above high threshold 80 - 100 [facility] Work Phone: Platelets (Bld) [#/Vol] 235 10*3/uL 150 - 450 [facility] Work Phone: RBC (Bld) [#/Vol] 3.64 {x10E12/L} below low threshold See Below [facility] Work Phone: Comment on above: Reference Range: 4.0 0 - 5.20 WBC (Bld) [#/Vol] 6.6 10*3/uL 4.4 - 11.3 [facility] Work Phone: No Panel Informationon 10-16 0.0 {/100_WBC} 0.0-0.0 [facility] Work Phone: 43 {mL/min/1.73m2} Abnormal >90 [facility] Work Phone: Comment on above: CALCULATIONS OF ALVARO MATED GFR ARE PERFORMED USING THE 2020 CKD-EPI STUDY REFIT EQUATION WITHOUT THE RACE VARIABLE FOR THE IDMS-TRACEABLE CREATININE METHODS.https://jasn.asnjournals.org/content/early/ N.1093815818 Blood Pressure Cuff Sizeon 0 08-14-2021 Blood Pressure Cuff Size Adult [facility] [address] [place] Work Phone: Blood Pressure Cuff Sizeon 0 04-11-2021 Blood Pressure Cuff Size Adult [facility] Work Phone: Blood Pressure Cuff Sizeon 0 04-05-2021 Blood Pressure Cuff Size Adult [facility] Work Phone: Echocardiogramon 04-04-2021 Echocardiography Please click on the link to view the study images Normal [facility] Work Phone: Complete Blood Count + Diffe rentialon 04-03-2021 Basophils/100 WBC (Bld) 1.2 % 0.0 - 2.0 [facility] Work Phone: [phone] Erythrocyte distribution width (RBC) [Ratio] 14.8 % above high threshold See Below [facility] Work Phone: [phone] Comment on above: Reference Range: 11. 5 - 14.5 Hematocrit (Bld) [Volume fraction] 37.3 % See Below [facility] Work Phone: [phone] Comment on above: Reference Range: 36. 0 - 46.0 Hemoglobin (Bld) [Mass/Vol] 11.8 g/dL below low threshold See Below [facility] Work Phone: [phone] Comment on above: Reference Range: 12. 0 - 16.0 Lymphocytes/100 WBC (Bld) 39.5 % See Below [facility] Work Phone: Comment on above: Reference Range: 13. 0 - 44.0 MCHC (RBC) [Mass/Vol] 31.6 g/dL below low threshold See Below [facility] Work Phone: [phone] Comment on above: Reference Range: 32. 0 - 36.0 MCV (RBC) [Entitic vol] 105 fL above high threshold 80 - 100 [facility] Work Phone: [phone] Monocytes/100 WBC (Bld) 7.0 % 2.0 - 10.0 [facility] Work Phone: Neutrophils/100 WBC (Bld) 49.1 % See Below [facility] Work Phone: Comment on above: Reference Range: 40. 0 - 80.0 Platelets (Bld) [#/Vol] 223 10*3/uL 150 - 450 [facility] Work Phone: [phone] RBC (Bld) [#/Vol] 3.56 {x10E12/L} below low threshold See Below [facility] Work Phone: [phone] Comment on above: Reference Range: 4.0 0 - 5.20 WBC (Bld) [#/Vol] 5.8 10*3/uL 4.4 - 11.3 [facility] Work Phone: Complete Blood Count + Differential 0.07 {x10E9/L} See Below [facility] Work Phone: Comment on above: Reference Range: 0.0 0 - 0.10 Complete Blood Count + Differential 0.17 {x10E9/L} See Below [facility] Work Phone: Comment on above: Reference Range: 0.0 0 - 0.40 Complete Blood Count + Differential 0.41 {x10E9/L} See Below [facility] Work Phone: Comment on above: Reference Range: 0.0 5 - 0.80 Complete Blood Count + Differential 2.30 {x10E9/L} See Below [facility] Work Phone: Comment on above: Reference Range: 0.8 0 - 3.00 Complete Blood Count + Differential 2.86 {x10E9/L} See Below [facility] Work Phone: Comment on above: Reference Range: 1.6 0 - 5.50 Complete Blood Count + Differential 2.9 % 0.0 - 6.0 [facility] Work Phone: Complete Blood Count + Differential 0.3 % 0.0 - 0.9 [facility] Work Phone: Comment on above: Immature Granulocyte Count (IG) includes promyelocytes, myelocytes and metamyelocytes but does not include bands. Percent differential counts (%) should be interpreted in the context of the absolute cell counts (cells/L). Complete Blood Count + Differential 0.0 {/100_WBC} 0.0-0.0 [facility] Work Phone: Laboratory - Chemistry and C hemistry - challengeon 04-03-2021 Albumin BCP dye [Mass/Vol] 3.7 g/dL 3.4 - 5.0 [facility] Work Phone: ALP [Catalytic activity/Vol] 51 U/L 33 - 136 [facility] Work Phone: ALT With P-5'-P [Catalytic activity/Vol] 14 U/L 7 - 45 [facility] Work Phone: Comment on above: Patients treated wit h Sulfasalazine may generate falsely decreased results for ALT. Anion gap [Moles/Vol] 15 mmol/L 10 - 20 [facility] Work Phone: AST With P-5'-P [Catalytic activity/Vol] 18 U/L 9 - 39 [facility] Work Phone: Bilirubin [Mass/Vol] 0.5 mg/dL 0.0 - 1.2 [facility] Work Phone: Calcium [Mass/Vol] 9.3 mg/dL 8.6 - 10.6 [facility] Work Phone: Chloride [Moles/Vol] 107 mmol/L 98 - 107 [facility] Work Phone: CO2 [Moles/Vol] 27 mmol/L 21 - 32 [facility] Work Phone: Creatinine [Mass/Vol] 1.08 mg/dL above high threshold See Below [facility] Work Phone: Comment on above: Reference Range: 0.5 0 - 1.05 Glucose [Mass/Vol] 85 mg/dL 74 - 99 [facility] Work Phone: Potassium [Moles/Vol] 4.8 mmol/L 3.5 - 5.3 [facility] Work Phone: Protein [Mass/Vol] 6.5 g/dL 6.4 - 8.2 [facility] Work Phone: Sodium [Moles/Vol] 144 mmol/L 136 - 145 [facility] Work Phone: Urea nitrogen [Mass/Vol] 23 mg/dL 6 - 23 [facility] Work Phone: Lipid Panelon 04-03-2021 Cholesterol [Mass/Vol] 146 mg/dL 0 - 199 [facility] Work Phone: Comment on above: . AGE [...] dosing. Cholesterol in HDL [Mass/Vol] 51.2 mg/dL [employer] Work Phone: Comment on above: . AGE VERY LOW LOW N ORMAL HIGH 0-19 Y < 35 < 40 40-45 ---- 20- 24 Y ---- < 40 >45 ---- >24 Y ---- < 40 40-60 >60. Cholesterol in LDL [Mass/Vol] 75 mg/dL 0 - 99 [employer] Work Phone: Comment on above: . NEAR BORD AGE TORI RABLE OPTIMAL HIGH HIGH VERY HIGH 0-19 Y 0 - 109 --- 110-129 >/= 130 ---- 20-24 Y 0 - 119 --- 120-159 >/= 160 ---- >24 Y 0 - 99 100-129 130-159 160-189 >/=190. Cholesterol.total/Cho lesterol in HDL [Mass ratio] 2.9 {ratio} [employer] Work Phone: Comment on above: REF VALUESDESIRABLE < 3.4HIGH RISK > 5.0 Triglyceride [Mass/Vol] 98 mg/dL 0 - 149 [employer] Work Phone: Comment on above: . AGE [...] Panel 20 mg/dL 0 - 40 [facility] Work Phone: No Panel Informationon 04-03 50 {mL/min/1.73m2} Abnormal >90 [facility] Work Phone: Comment on above: CALCULATIONS OF ALVARO MATED GFR ARE PERFORMED USING THE 2020 CKD-EPI STUDY REFIT EQUATION WITHOUT THE RACE VARIABLE FOR THE IDMS-TRACEABLE CREATININE METHODS.https://jasn.asnjournals.org/content// N.5335030821 Blood Pressure Cuff Sizeon 0 03-08-2021 Fall risk assessment a) No falls within the last year [facility] Work Phone: Tobacco use status CP b) No [facility] Work Phone: Blood Pressure Cuff Size Adult [facility] Work Phone: Laboratory - Chemistry and C hemistry - challengeon 01-15-2021 Anion gap [Moles/Vol] 12 mmol/L 10 - 20 [facility] Work Phone: Calcium [Mass/Vol] 9.8 mg/dL 8.6 - 10.6 [facility] Work Phone: Chloride [Moles/Vol] 106 mmol/L 98 - 107 [facility] Work Phone: CO2 [Moles/Vol] 27 mmol/L 21 - 32 [facility] Work Phone: Creatinine [Mass/Vol] 1.08 mg/dL above high threshold See Below [facility] Work Phone: Comment on above: Reference Range: 0.5 0 - 1.05 Glucose [Mass/Vol] 90 mg/dL 74 - 99 [facility] Work Phone: Potassium [Moles/Vol] 4.6 mmol/L 3.5 - 5.3 [facility] Work Phone: Sodium [Moles/Vol] 140 mmol/L 136 - 145 [facility] Work Phone: Urea nitrogen [Mass/Vol] 23 mg/dL 6 - 23 [facility] Work Phone: Laboratory - Hematology and Cell countson 01-15-2021 Erythrocyte distribution width (RBC) [Ratio] 13.2 % See Below [facility] Work Phone: Comment on above: Reference Range: 11. 5 - 14.5 Hematocrit (Bld) [Volume fraction] 36.9 % See Below [facility] Work Phone: Comment on above: Reference Range: 36. 0 - 46.0 Hemoglobin (Bld) [Mass/Vol] 11.5 g/dL below low threshold See Below [facility] Work Phone: Comment on above: Reference Range: 12. 0 - 16.0 MCHC (RBC) [Mass/Vol] 31.2 g/dL below low threshold See Below [facility] Work Phone: Comment on above: Reference Range: 32. 0 - 36.0 MCV (RBC) [Entitic vol] 106 fL above high threshold 80 - 100 [facility] Work Phone: Platelets (Bld) [#/Vol] 233 10*3/uL 150 - 450 [facility] Work Phone: RBC (Bld) [#/Vol] 3.47 {x10E12/L} below low threshold See Below [facility] Work Phone: Comment on above: Reference Range: 4.0 0 - 5.20 WBC (Bld) [#/Vol] 7.5 10*3/uL 4.4 - 11.3 [facility] Work Phone: No Panel Informationon 01-15 58 {mL/min/1.73m2} Abnormal >60 [facility] Work Phone: Comment on above: CALCULATIONS OF ALVARO MATED GFR ARE PERFORMED USING THE MDRD STUDY EQUATION FOR THE IDMS-TRACEABLE CREATININE METHODS. CLIN CHEM 2007;53:766-72 48 {mL/min/1.73m2} Abnormal >60 [facility] Work Phone: 0.0 {/100_WBC} 0.0-0.0 [facility] Work Phone: Tobacco Screening.on Tobacco use status CPHS b) No [facility] Work Phone: IO UA (automated w/o microsc opy)on 10-29-2020 Protein (U) [Mass/Vol] Trace [facility] Work Phone: IO UA (automated w/o microscopy) Negative [facility] Work Phone: IO UA (automated w/o microscopy) Normal (0.2-1.0 mg/dl) [facility] Work Phone: IO UA (automated w/o microscopy) 6.0 1 [facility] Work Phone: IO UA (automated w/o microscopy) 1.020 1 [facility] Work Phone: IO UA (automated w/o microscopy) Clear [facility] Work Phone: IO UA (automated w/o microscopy) Yellow [facility] Work Phone: Tobacco Screening.on Last menstrual period start date hyst [facility] Work Phone: Tobacco use status CPHS b) No [facility] Work Phone: Laboratory - Chemistry and C hemistry - challengeon 10-24-2020 Anion gap [Moles/Vol] 15 mmol/L 10 - 20 [facility] Work Phone: Calcium [Mass/Vol] 9.5 mg/dL 8.6 - 10.6 [facility] Work Phone: Chloride [Moles/Vol] 103 mmol/L 98 - 107 [facility] Work Phone: CO2 [Moles/Vol] 25 mmol/L 21 - 32 [facility] Work Phone: Creatinine [Mass/Vol] 0.88 mg/dL See Below [facility] Work Phone: Comment on above: Reference Range: 0.5 0 - 1.05 Glucose [Mass/Vol] 102 mg/dL above high threshold 74 - 99 [facility] Work Phone: Potassium [Moles/Vol] 4.5 mmol/L 3.5 - 5.3 [facility] Work Phone: Sodium [Moles/Vol] 138 mmol/L 136 - 145 [facility] Work Phone: Urea nitrogen [Mass/Vol] 19 mg/dL 6 - 23 [facility] Work Phone: Laboratory - Hematology and Cell countson 10-24-2020 Erythrocyte distribution width (RBC) [Ratio] 14.5 % See Below [facility] Work Phone: Comment on above: Reference Range: 11. 5 - 14.5 Hematocrit (Bld) [Volume fraction] 36.8 % See Below [facility] Work Phone: Comment on above: Reference Range: 36. 0 - 46.0 Hemoglobin (Bld) [Mass/Vol] 11.5 g/dL below low threshold See Below [facility] Work Phone: Comment on above: Reference Range: 12. 0 - 16.0 MCHC (RBC) [Mass/Vol] 31.3 g/dL below low threshold See Below [facility] Work Phone: Comment on above: Reference Range: 32. 0 - 36.0 MCV (RBC) [Entitic vol] 105 fL above high threshold 80 - 100 [facility] Work Phone: Platelets (Bld) [#/Vol] 450 10*3/uL 150 - 450 [facility] Work Phone: RBC (Bld) [#/Vol] 3.52 {x10E12/L} below low threshold See Below [facility] Work Phone: Comment on above: Reference Range: 4.0 0 - 5.20 WBC (Bld) [#/Vol] 9.1 10*3/uL 4.4 - 11.3 [facility] Work Phone: No Panel Informationon 10-24 0.0 {/100_WBC} 0.0-0.0 [facility] Work Phone: >60 >60 [facility] Work Phone: Comment on above: CALCULATIONS OF ALVARO MATED GFR ARE PERFORMED USING THE MDRD STUDY EQUATION FOR THE IDMS-TRACEABLE CREATININE METHODS. CLIN CHEM 2007;53:766-72 Comp Panel with Mg Reflexon 10-22-2020 ALP [Catalytic activity/Vol] 73 U/L Normal 38-126 [facility] Comment on above: Performed By: #### Fernando Hammond CMP3M #### [employer] [facility] [address] [place] [address] ALT [Catalytic activity/Vol] 23 U/L Normal 0-34 [facility] Comment on above: Result Comment: The ALT test is performed by an updated assay method. Please note that the reference intervals have been changed and are now sex specific. Performed By: #### Fernando Hammond CMP3M #### [employer] [facility] [address] [place] [address] AST [Catalytic activity/Vol] 49 U/L High 15-46 [facility] Comment on above: Performed By: #### Fernando Hammond CMP3M #### [employer] [facility] [address] [place] [address] Calcium [Mass/Vol] 10.0 mg/dL Normal 8.4-10.4 [facility] Comment on above: Performed By: #### Fernando Hammond CMP3M #### [facility] [employer] [facility] [address] [place] [address] Glucose [Mass/Vol] 108 mg/dL High 70-100 [facility] Comment on above: Performed By: #### M G3, CMP3M #### [facility] [address] [place] [address] Protein [Mass/Vol] 6.9 g/dL Normal 6.3-8.2 [facility] Comment on above: Performed By: #### M G3, CMP3M #### [facility] [address] [place] [address] Urea nitrogen [Mass/Vol] 16 mg/dL Normal 9-20 [facility] Comment on above: Performed By: #### M G3, CMP3M #### [facility] [address] [place] [address] Anion gap [Moles/Vol] 7 mmol/L Normal 3-13 [facility] Comment on above: Performed By: #### Fernando G3, CMP3M #### [facility] [address] [place] [address] Bilirubin [Mass/Vol] 0.7 mg/dL Normal 0.2-1.3 [facility] Comment on above: Performed By: #### M G3, CMP3M #### [facility] [address] [place] [address] CO2 [Moles/Vol] 25 mmol/L Normal 22-30 [facility] Comment on above: Performed By: #### M G3, CMP3M #### [facility] [address] [place] [address] Creatinine [Mass/Vol] 0.69 mg/dL Normal 0.52-1.25 [facility] Comment on above: Performed By: #### M G3, CMP3M #### [facility] [address] [place] [address] GFR/1.73 sq M.predicted among blacks MDRD (S/P/Bld) [Vol rate/Area] mL/min/{1.73_m2} Normal >60 [facility] Comment on above: Performed By: #### M G3, CMP3M #### [facility] [address] [place] [address] GFR/1.73 sq M.predicted among non-blacks MDRD (S/P/Bld) [Vol rate/Area] 79.6 mL/min/{1.73_m2} Normal >60 [facility] Comment on above: Result Comment: KDIG [...] Performed By: #### Fernando Hammond CMP3M #### [facility] [address] [place] [address] Albumin [Mass/Vol] 3.4 g/dL Low 3.5-5.0 [facility] Comment on above: Performed By: #### Fernando Hammond CMP3M #### [facility] [address] [place] [address] Chloride [Moles/Vol] 105 mmol/L Normal 98-107 [facility] Comment on above: Performed By: #### Fernando Hammond CMP3M #### [facility] [address] [place] [address] Potassium [Moles/Vol] 5.3 mmol/L High 3.5-5.1 [facility] Comment on above: Performed By: #### Frenando Hammond CMP3M #### [facility] [address] [place] [address] Sodium [Moles/Vol] 137 mmol/L Normal 135-145 [facility] Comment on above: Performed By: #### Fernando Hammond CMP3M #### [facility] [address] [place] [address] Hemogram w/ Autodiffon 10-22 Abs Baso Cnt 0.1 10*3/uL Normal 0.0-0.2 [facility] Comment on above: Performed By: #### Fernando Hammond CMP3M #### [facility] [address] [place] [address] Abs Neutrophile Cnt 6.0 10*3/uL Normal 1.8-7.0 [facility] Comment on above: Performed By: #### Fernando Hammond CMP3M #### [facility] [address] [place] [address] Basophils/100 WBC (Bld) 0.8 % Normal 0.0-2.0 [facility] Comment on above: Performed By: #### Fernando Hammond CMP3M #### [facility] [address] [place] [address] Eosinophils (Bld) [#/Vol] 0.1 10*3/uL Normal 0.0-0.5 [facility] Comment on above: Performed By: #### Fernando Hammond CMP3M #### [facility] [address] [place] [address] Eosinophils/100 WBC (Bld) 1.5 % Normal 1.0-6.0 [facility] Comment on above: Performed By: #### Fernando Hammond CMP3M #### [facility] [address] [place] [address] Erythrocyte distribution width (RBC) [Ratio] 13.9 % Normal 11.5-14.5 [facility] Comment on above: Performed By: #### Fernando Hammond CMP3M #### [facility] [address] [place] [address] Granulocytes/100 WBC (Bld) 66.3 % Normal 40.0-80.0 [facility] Comment on above: Performed By: #### Fernando Hammond CMP3M #### [facility] [address] [place] [address] Hematocrit (Bld) [Volume fraction] 35.4 % Normal 35.0-47.0 [facility] Comment on above: Performed By: #### Fernando Hammond CMP3M #### [facility] [address] [place] [address] Hemoglobin (Bld) [Mass/Vol] 12.4 g/dL Normal 11.7-16.0 [facility] Comment on above: Performed By: #### Fernando Hammond CMP3M #### [facility] [address] [place] [address] Lymphocytes (Bld) [#/Vol] 2.2 10*3/uL Normal 1.0-4.3 [facility] Comment on above: Performed By: #### Fernando Hammond CMP3M #### [facility] [address] [place] [address] Lymphocytes/100 WBC (Bld) 23.6 % Normal 20.0-40.0 [facility] Comment on above: Performed By: #### Fernando Hammond CMP3M #### [facility] [address] [place] [address] MCH (RBC) [Entitic mass] 34.3 pg High 26.0-34.0 [facility] Comment on above: Performed By: #### Fernando Hammond CMP3M #### [facility] [address] [place] [address] MCHC 34.9 % Normal 32.0-36.0 [facility] Comment on above: Performed By: #### Fernando Hammond CMP3M #### [facility] [address] [place] [address] MCV (RBC) [Entitic vol] 98.3 fL High 79.0-98.0 [facility] Comment on above: Performed By: #### Fernando Hammond CMP3M #### [facility] [address] [place] [address] Monocytes (Bld) [#/Vol] 0.7 10*3/uL Normal 0.0-0.8 [facility] Comment on above: Performed By: #### Fernando Hammond CMP3M #### [facility] [address] [place] [address] Monocytes/100 WBC (Bld) 7.8 % Normal 2.0-10.0 [facility] Comment on above: Performed By: #### Fernando Hammond CMP3M #### [facility] [address] [place] [address] Platelet mean volume (Bld) [Entitic vol] 7.0 fL Low 7.4-10.4 [facility] Comment on above: Performed By: #### Fernando Hammond CMP3M #### [facility] [address] [place] [address] Platelets (Bld) [#/Vol] 301 10*3/uL Normal 140-440 [facility] Comment on above: Performed By: #### Fernando Hammond CMP3M #### [facility] [address] [place] [address] RBC (Bld) [#/Vol] 3.60 10*6/uL Low 3.80-5.20 [facility] Comment on above: Performed By: #### Fernando Hammond CMP3M #### [facility] [address] [place] [address] WBC (Bld) [#/Vol] 9.1 10*3/uL Normal 3.6-10.7 [facility] Comment on above: Performed By: #### Fernando Hammond CMP3M #### [facility] [address] [place] [address] Comp Panel with Mg Reflexon 10-21-2020 ALP [Catalytic activity/Vol] 72 U/L Normal 38-126 [facility] Comment on above: Performed By: #### Fernando Hammond CMP3M #### [facility] [address] [place] [address] ALT [Catalytic activity/Vol] 14 U/L Normal 0-34 [facility] Comment on above: Result Comment: The ALT test is performed by an updated assay method. Please note that the reference intervals have been changed and are now sex specific. Performed By: #### Fernando Hammond CMP3M #### [facility] [address] [place] [address] Calcium [Mass/Vol] 9.3 mg/dL Normal 8.4-10.4 [facility] Comment on above: Performed By: #### Fernando Hammond CMP3M #### [facility] [address] [place] [address] Glucose [Mass/Vol] 101 mg/dL High 70-100 [facility] Comment on above: Performed By: #### Fernando G3 CMP3M #### [facility] [address] [place] [address] Urea nitrogen [Mass/Vol] 11 mg/dL Normal 9-20 [facility] Comment on above: Performed By: #### Fernando G3 CMP3M #### [facility] [address] [place] [address] Anion gap [Moles/Vol] 5 mmol/L Normal 3-13 [facility] Comment on above: Performed By: #### Fernando Hammond CMP3M #### [facility] [address] [place] [address] AST [Catalytic activity/Vol] 22 U/L Normal 15-46 [facility] Comment on above: Performed By: #### Fernando Hammond CMP3M #### [facility] [address] [place] [address] Bilirubin [Mass/Vol] 0.6 mg/dL Normal 0.2-1.3 [facility] Comment on above: Performed By: #### Fernando Hammond CMP3M #### [facility] [address] [place] [address] CO2 [Moles/Vol] 27 mmol/L Normal 22-30 [facility] Comment on above: Performed By: #### Fernando Hammond CMP3M #### [facility] [address] [place] [address] Creatinine [Mass/Vol] 0.55 mg/dL Normal 0.52-1.25 [facility] Comment on above: Performed By: #### Fernando Hammond CMP3M #### [facility] [address] [place] [address] GFR/1.73 sq M.predicted among blacks MDRD (S/P/Bld) [Vol rate/Area] mL/min/{1.73_m2} Normal >60 [facility] Comment on above: Performed By: #### Fernando G3, CMP3M #### [facility] [address] [place] [address] GFR/1.73 sq M.predicted among non-blacks MDRD (S/P/Bld) [Vol rate/Area] 85.8 mL/min/{1.73_m2} Normal >60 [facility] Comment on above: Result Comment: KDIG [...] Performed By: #### Fernando G3 CMP3M #### [facility] [address] [place] [address] Protein [Mass/Vol] 6.5 g/dL Normal 6.3-8.2 [facility] Comment on above: Performed By: #### Fernando G3, CMP3M #### [facility] [address] [place] [address] Potassium [Moles/Vol] 4.6 mmol/L Normal 3.5-5.1 [facility] Comment on above: Performed By: #### Fernando G3, CMP3M #### [facility] [address] [place] [address] Sodium [Moles/Vol] 138 mmol/L Normal 135-145 [facility] Comment on above: Performed By: #### M G3, CMP3M #### [facility] [address] [place] [address] Albumin [Mass/Vol] 3.2 g/dL Low 3.5-5.0 [facility] Comment on above: Performed By: #### M G3, CMP3M #### [facility] [address] [place] [address] Chloride [Moles/Vol] 107 mmol/L Normal 98-107 [facility] Comment on above: Performed By: #### Fernando G3, CMP3M #### [facility] [address] [place] [address] Hemogram w/ Autodiffon 10-21 Abs Baso Cnt 0.0 10*3/uL Normal 0.0-0.2 [facility] Comment on above: Performed By: #### M G3, CMP3M #### [facility] [address] [place] [address] Abs Neutrophile Cnt 8.4 10*3/uL High 1.8-7.0 [facility] Comment on above: Performed By: #### M G3, CMP3M #### [facility] [address] [place] [address] Basophils/100 WBC (Bld) 0.4 % Normal 0.0-2.0 [facility] Comment on above: Performed By: #### M G3, CMP3M #### [facility] [address] [place] [address] Eosinophils (Bld) [#/Vol] 0.2 10*3/uL Normal 0.0-0.5 [facility] Comment on above: Performed By: #### M G3, CMP3M #### [facility] [address] [place] [address] Eosinophils/100 WBC (Bld) 1.3 % Normal 1.0-6.0 [facility] Comment on above: Performed By: #### M G3, CMP3M #### [facility] [address] [place] [address] Erythrocyte distribution width (RBC) [Ratio] 13.7 % Normal 11.5-14.5 [facility] Comment on above: Performed By: #### M G3, CMP3M #### [facility] [address] [place] [address] Granulocytes/100 WBC (Bld) 72.7 % Normal 40.0-80.0 [facility] Comment on above: Performed By: #### M G3, CMP3M #### [facility] [address] [place] [address] Hematocrit (Bld) [Volume fraction] 34.3 % Low 35.0-47.0 [facility] Comment on above: Performed By: #### M G3, CMP3M #### [facility] [address] [place] [address] Hemoglobin (Bld) [Mass/Vol] 11.5 g/dL Low 11.7-16.0 [facility] Comment on above: Performed By: #### M G3, CMP3M #### [facility] [address] [place] [address] Lymphocytes (Bld) [#/Vol] 2.0 10*3/uL Normal 1.0-4.3 [facility] Comment on above: Performed By: #### M G3, CMP3M #### [facility] [address] [place] [address] Lymphocytes/100 WBC (Bld) 17.4 % Low 20.0-40.0 [facility] Comment on above: Performed By: #### M G3, CMP3M #### [facility] [address] [place] [address] MCH (RBC) [Entitic mass] 33.1 pg Normal 26.0-34.0 [facility] Comment on above: Performed By: #### M G3, CMP3M #### [facility] [address] [place] [address] MCHC 33.5 % Normal 32.0-36.0 [facility] Comment on above: Performed By: #### M G3, CMP3M #### [facility] [address] [place] [address] MCV (RBC) [Entitic vol] 98.7 fL High 79.0-98.0 [facility] Comment on above: Performed By: #### M G3, CMP3M #### [facility] [address] [place] [address] Monocytes (Bld) [#/Vol] 0.9 10*3/uL High 0.0-0.8 [facility] Comment on above: Performed By: #### M G3, CMP3M #### [facility] [address] [place] [address] Monocytes/100 WBC (Bld) 8.2 % Normal 2.0-10.0 [facility] Comment on above: Performed By: #### M G3, CMP3M #### [facility] [address] [place] [address] Platelet mean volume (Bld) [Entitic vol] 7.6 fL Normal 7.4-10.4 [facility] Comment on above: Performed By: #### Fernando G3, CMP3M #### [facility] [address] [place] [address] Platelets (Bld) [#/Vol] 284 10*3/uL Normal 140-440 [facility] Comment on above: Performed By: #### Fernando Hammond, CMP3M #### [facility] [address] [place] [address] RBC (Bld) [#/Vol] 3.47 10*6/uL Low 3.80-5.20 [facility] Comment on above: Performed By: #### Fernando Hammond, CMP3M #### [facility] [address] [place] [address] WBC (Bld) [#/Vol] 11.5 10*3/uL High 3.6-10.7 [facility] Comment on above: Performed By: #### Fernando Hammond CMP3M #### [facility] [address] [place] [address] CULTURE BLOODon 10-20-2020 Microscopic examination of blood, culture CULTURE BLOOD --> Status: F No growth at 5 days. Normal [facility] Comment on above: Performed By: #### Fernando Hammond, CMP3M #### [facility] [address] [place] [address] CULTURE BLOOD (Two)on 2020 Microscopic examination of blood, culture CULTURE BLOOD (Two) --> Status: F No growth at 5 days. Normal [facility] Comment on above: Performed By: #### Fernando Hammond CMP3M #### [facility] [address] [place] [address] Comp Panel with Mg Reflexon 10-19-2020 ALP [Catalytic activity/Vol] 70 U/L Normal 38-126 [facility] Comment on above: Performed By: #### Fernando Hammond, CMP3M #### [facility] [address] [place] [address] ALT [Catalytic activity/Vol] 16 U/L Normal 0-34 [facility] Comment on above: Result Comment: The ALT test is performed by an updated assay method. Please note that the reference intervals have been changed and are now sex specific. Performed By: #### Fernando Hammond CMP3M #### [facility] [address] [place] [address] Calcium [Mass/Vol] 8.3 mg/dL Low 8.4-10.4 [facility] Comment on above: Performed By: #### Fernando G3 CMP3M #### [facility] [address] [place] [address] Glucose [Mass/Vol] 108 mg/dL High 70-100 [facility] Comment on above: Performed By: #### Fernando Hammond CMP3M #### [facility] [address] [place] [address] Urea nitrogen [Mass/Vol] 11 mg/dL Normal 9-20 [facility] Comment on above: Performed By: #### Fernando Hammond CMP3M #### [facility] [address] [place] [address] Anion gap [Moles/Vol] 2 mmol/L Low 3-13 [facility] Comment on above: Performed By: #### Fernando Hammond CMP3M #### [facility] [address] [place] [address] AST [Catalytic activity/Vol] 35 U/L Normal 15-46 [facility] Comment on above: Performed By: #### Fernando Hammond CMP3M #### [facility] [address] [place] [address] Bilirubin [Mass/Vol] 0.8 mg/dL Normal 0.2-1.3 [facility] Comment on above: Performed By: #### Fernando Hammond CMP3M #### [facility] [address] [place] [address] CO2 [Moles/Vol] 31 mmol/L High 22-30 [facility] Comment on above: Performed By: #### Fernando G3 CMP3M #### [facility] [address] [place] [address] Creatinine [Mass/Vol] 0.48 mg/dL Low 0.52-1.25 [facility] Comment on above: Performed By: #### Fernando Hammond CMP3M #### [facility] [address] [place] [address] GFR/1.73 sq M.predicted among blacks MDRD (S/P/Bld) [Vol rate/Area] mL/min/{1.73_m2} Normal >60 [facility] Comment on above: Performed By: #### Fernando Hammond CMP3M #### [facility] [address] [place] [address] GFR/1.73 sq M.predicted among non-blacks MDRD (S/P/Bld) [Vol rate/Area] 89.7 mL/min/{1.73_m2} Normal >60 [facility] Comment on above: Result Comment: KDIG [...] serum creatinine in children is the Bedside Croea equation. It is less accurate in patients with extremes of muscle mass, restriction of dietary protein, ingestion of creatine, extra-renal metabolism of creatinine, or treatment with medications that affect renal tubular creatinine secretion. Performed By: #### Fernando Hammond CMP3M #### [facility] [address] [place] [address] Protein [Mass/Vol] 6.2 g/dL Low 6.3-8.2 [facility] Comment on above: Performed By: #### Fernando Hammond CMP3M #### [facility] [address] [place] [address] Chloride [Moles/Vol] 104 mmol/L Normal 98-107 [facility] Comment on above: Performed By: #### Fernando Hammond CMP3M #### [facility] [address] [place] [address] Potassium [Moles/Vol] 3.7 mmol/L Normal 3.5-5.1 [facility] Comment on above: Performed By: #### Fernando Hammond CMP3M #### [facility] [address] [place] [address] Sodium [Moles/Vol] 137 mmol/L Normal 135-145 [facility] Comment on above: Performed By: #### Fernando Hammond CMP3M #### [facility] [address] [place] [address] Albumin [Mass/Vol] 3.1 g/dL Low 3.5-5.0 [facility] Comment on above: Performed By: #### Fernando Hammond CMP3M #### [facility] [address] [place] [address] Hemogram w/ Autodiffon 10-19 Abs Baso Cnt 0.1 10*3/uL Normal 0.0-0.2 [facility] Comment on above: Performed By: #### Fernando Hammond CMP3M #### [facility] [address] [place] [address] Abs Neutrophile Cnt 5.6 10*3/uL Normal 1.8-7.0 [facility] Comment on above: Performed By: #### Fernando Hammond CMP3M #### [facility] [address] [place] [address] Basophils/100 WBC (Bld) 0.7 % Normal 0.0-2.0 [facility] Comment on above: Performed By: #### Fernando Hammond CMP3M #### [facility] [address] [place] [address] Eosinophils (Bld) [#/Vol] 0.1 10*3/uL Normal 0.0-0.5 [facility] Comment on above: Performed By: #### Fernando Hammond CMP3M #### [facility] [address] [place] [address] Eosinophils/100 WBC (Bld) 0.9 % Low 1.0-6.0 [facility] Comment on above: Performed By: #### M G3, CMP3M #### [facility] [address] [place] [address] Erythrocyte distribution width (RBC) [Ratio] 13.2 % Normal 11.5-14.5 [facility] Comment on above: Performed By: #### Fernando G3, CMP3M #### [facility] [address] [place] [address] Granulocytes/100 WBC (Bld) 65.2 % Normal 40.0-80.0 [facility] Comment on above: Performed By: #### Fernando G3, CMP3M #### [facility] [address] [place] [address] Hematocrit (Bld) [Volume fraction] 32.6 % Low 35.0-47.0 [facility] Comment on above: Performed By: #### Fernando Hammond, CMP3M #### [facility] [address] [place] [address] Hemoglobin (Bld) [Mass/Vol] 11.2 g/dL Low 11.7-16.0 [facility] Comment on above: Performed By: #### Fernando Hammond, CMP3M #### [facility] [address] [place] [address] Lymphocytes (Bld) [#/Vol] 1.7 10*3/uL Normal 1.0-4.3 [facility] Comment on above: Performed By: #### Fernando G3, CMP3M #### [facility] [address] [place] [address] Lymphocytes/100 WBC (Bld) 19.6 % Low 20.0-40.0 [facility] Comment on above: Performed By: #### Fernando G3, CMP3M #### [facility] [address] [place] [address] MCH (RBC) [Entitic mass] 33.6 pg Normal 26.0-34.0 [facility] Comment on above: Performed By: #### Fernando G3, CMP3M #### [facility] [address] [place] [address] MCHC 34.3 % Normal 32.0-36.0 [facility] Comment on above: Performed By: #### Fernando Hammond, CMP3M #### [facility] [address] [place] [address] MCV (RBC) [Entitic vol] 98.1 fL High 79.0-98.0 [facility] Comment on above: Performed By: #### Fernando G3, CMP3M #### [facility] [address] [place] [address] Monocytes (Bld) [#/Vol] 1.2 10*3/uL High 0.0-0.8 [facility] Comment on above: Performed By: #### Fernando Hammond, CMP3M #### [facility] [address] [place] [address] Monocytes/100 WBC (Bld) 13.6 % High 2.0-10.0 [facility] Comment on above: Performed By: #### Fernando Hammond CMP3M #### [facility] [address] [place] [address] Platelet mean volume (Bld) [Entitic vol] 7.5 fL Normal 7.4-10.4 [facility] Comment on above: Performed By: #### Fernando Hammond CMP3M #### [facility] [address] [place] [address] Platelets (Bld) [#/Vol] 231 10*3/uL Normal 140-440 [facility] Comment on above: Performed By: #### Fernando Hammond, CMP3M #### [facility] [address] [place] [address] RBC (Bld) [#/Vol] 3.33 10*6/uL Low 3.80-5.20 [facility] Comment on above: Performed By: #### Fernando G3, CMP3M #### [facility] [address] [place] [address] WBC (Bld) [#/Vol] 8.7 10*3/uL Normal 3.6-10.7 [facility] Comment on above: Performed By: #### Fernando G3, CMP3M #### [facility] [address] [place] [address] Basic Metabolic Panelon 09-0 -2020 Calcium [Mass/Vol] 8.0 mg/dL Low 8.4-10.4 [facility] Comment on above: Performed By: #### M G3, CMP3M #### [facility] [address] [place] [address] Glucose [Mass/Vol] 147 mg/dL High 70-100 [facility] Comment on above: Performed By: #### M G3, CMP3M #### [facility] [address] [place] [address] Urea nitrogen [Mass/Vol] 9 mg/dL Normal 9-20 [facility] Comment on above: Performed By: #### M G3, CMP3M #### [facility] [address] [place] [address] Anion gap [Moles/Vol] 6 mmol/L Normal 3-13 [facility] Comment on above: Performed By: #### M G3, CMP3M #### [facility] [address] [place] [address] CO2 [Moles/Vol] 33 mmol/L High 22-30 [facility] Comment on above: Performed By: #### M G3, CMP3M #### [facility] [address] [place] [address] Creatinine [Mass/Vol] 0.55 mg/dL Normal 0.52-1.25 [facility] Comment on above: Performed By: #### M G3, CMP3M #### [facility] [address] [place] [address] GFR/1.73 sq M.predicted among blacks MDRD (S/P/Bld) [Vol rate/Area] mL/min/{1.73_m2} Normal >60 [facility] Comment on above: Performed By: #### M G3, CMP3M #### [facility] [address] [place] [address] GFR/1.73 sq M.predicted among non-blacks MDRD (S/P/Bld) [Vol rate/Area] 85.8 mL/min/{1.73_m2} Normal >60 [facility] Comment on above: Result Comment: KDIG [...] Performed By: #### Fernando Hammond CMP3M #### [facility] [address] [place] [address] Potassium [Moles/Vol] 3.4 mmol/L Low 3.5-5.1 [facility] Comment on above: Performed By: #### Fernando Hammond CMP3M #### [facility] [address] [place] [address] Chloride [Moles/Vol] 100 mmol/L Normal 98-107 [facility] Comment on above: Performed By: #### Fernando Hammond CMP3M #### [facility] [address] [place] [address] Sodium [Moles/Vol] 139 mmol/L Normal 135-145 [facility] Comment on above: Performed By: #### Fernando G3 CMP3M #### [facility] [address] [place] [address] Calcium [Mass/Vol] 7.9 mg/dL Low 8.4-10.4 [facility] Comment on above: Performed By: #### Fernando G3 CMP3M #### [facility] [address] [place] [address] Anion gap [Moles/Vol] 5 mmol/L Normal 3-13 [facility] Comment on above: Performed By: #### Fernando G3 CMP3M #### [facility] [address] [place] [address] CO2 [Moles/Vol] 34 mmol/L High 22-30 [facility] Comment on above: Performed By: #### Fernando G3 CMP3M #### [facility] [address] [place] [address] Creatinine [Mass/Vol] 0.44 mg/dL Low 0.52-1.25 [facility] Comment on above: Performed By: #### Fernando Hammond CMP3M #### [facility] [address] [place] [address] eGFR OTHER > 90.0 Normal >60 [facility] Comment on above: Result Comment: KDIG [...] Performed By: #### Fernando Hammond CMP3M #### [facility] [address] [place] [address] GFR/1.73 sq M.predicted among blacks MDRD (S/P/Bld) [Vol rate/Area] mL/min/{1.73_m2} Normal >60 [facility] Comment on above: Performed By: #### Fernando Hammond CMP3M #### [facility] [address] [place] [address] Glucose [Mass/Vol] 123 mg/dL High 70-100 [facility] Comment on above: Performed By: #### Fernando Hammond CMP3M #### [facility] [address] [place] [address] Urea nitrogen [Mass/Vol] 5 mg/dL Low 9-20 [facility] Comment on above: Performed By: #### Fernando Hammond CMP3M #### [facility] [address] [place] [address] Chloride [Moles/Vol] 99 mmol/L Normal 98-107 [facility] Comment on above: Performed By: #### Fernando Hammond CMP3M #### [facility] [address] [place] [address] Potassium [Moles/Vol] 2.6 mmol/L Critically low 3.5-5.1 [facility] Comment on above: Performed By: #### Fernando Hammond CMP3M #### [facility] [address] [place] [address] Sodium [Moles/Vol] 138 mmol/L Normal 135-145 [facility] Comment on above: Performed By: #### Fernando Hammond CMP3M #### [facility] [address] [place] [address] Comp Panel with Mg Reflexon 10-18-2020 Calcium [Mass/Vol] 7.8 mg/dL Low 8.4-10.4 [facility] Comment on above: Performed By: #### Fernando Hammond CMP3M #### [facility] [address] [place] [address] ALP [Catalytic activity/Vol] 46 U/L Normal 38-126 [facility] Comment on above: Performed By: #### Fernando Hammond CMP3M #### [facility] [address] [place] [address] ALT [Catalytic activity/Vol] 13 U/L Normal 0-34 [facility] Comment on above: Result Comment: The ALT test is performed by an updated assay method. Please note that the reference intervals have been changed and are now sex specific. Performed By: #### Fernando Hammond CMP3M #### [facility] [address] [place] [address] Anion gap [Moles/Vol] 3 mmol/L Normal 3-13 [facility] Comment on above: Performed By: #### Fernando Hammond CMP3M #### [facility] [address] [place] [address] AST [Catalytic activity/Vol] 30 U/L Normal 15-46 [facility] Comment on above: Performed By: #### Fernando Hammond CMP3M #### [facility] [address] [place] [address] Bilirubin [Mass/Vol] 0.7 mg/dL Normal 0.2-1.3 [facility] Comment on above: Performed By: #### Fernando G3, CMP3M #### [facility] [address] [place] [address] CO2 [Moles/Vol] 33 mmol/L High 22-30 [facility] Comment on above: Performed By: #### M G3, CMP3M #### [facility] [address] [place] [address] Glucose [Mass/Vol] 100 mg/dL Normal 70-100 [facility] Comment on above: Performed By: #### M G3, CMP3M #### [facility] [address] [place] [address] Protein [Mass/Vol] 5.8 g/dL Low 6.3-8.2 [facility] Comment on above: Performed By: #### Fernando G3, CMP3M #### [facility] [address] [place] [address] Urea nitrogen [Mass/Vol] 6 mg/dL Low 9-20 [facility] Comment on above: Performed By: #### Fernando G3, CMP3M #### [facility] [address] [place] [address] Creatinine [Mass/Vol] 0.42 mg/dL Low 0.52-1.25 [facility] Comment on above: Performed By: #### M G3, CMP3M #### [facility] [address] [place] [address] Albumin [Mass/Vol] 2.9 g/dL Low 3.5-5.0 [facility] Comment on above: Performed By: #### M G3, CMP3M #### [facility] [address] [place] [address] Chloride [Moles/Vol] 100 mmol/L Normal 98-107 [facility] Comment on above: Performed By: #### M G3, CMP3M #### [facility] [address] [place] [address] Potassium [Moles/Vol] 2.6 mmol/L Critically low 3.5-5.1 [facility] Comment on above: Performed By: #### Fernando G3, CMP3M #### [facility] [address] [place] [address] Sodium [Moles/Vol] 136 mmol/L Normal 135-145 [facility] Comment on above: Performed By: #### M G3, CMP3M #### [facility] [address] [place] [address] Hemogram w/ Autodiffon 10-18 Abs Baso Cnt 0.0 10*3/uL Normal 0.0-0.2 [facility] Comment on above: Performed By: #### H EMDF #### [facility] [address] [place] [address] Abs Neutrophile Cnt 2.6 10*3/uL Normal 1.8-7.0 [facility] Comment on above: Performed By: #### H EMDF #### [facility] [address] [place] [address] Basophils/100 WBC (Bld) 0.4 % Normal 0.0-2.0 [facility] Comment on above: Performed By: #### H EMDF #### [facility] [address] [place] [address] Eosinophils (Bld) [#/Vol] 0.1 10*3/uL Normal 0.0-0.5 [facility] Comment on above: Performed By: #### H EMDF #### [facility] [address] [place] [address] Eosinophils/100 WBC (Bld) 1.5 % Normal 1.0-6.0 [facility] Comment on above: Performed By: #### H EMDF #### [facility] [address] [place] [address] Erythrocyte distribution width (RBC) [Ratio] 13.5 % Normal 11.5-14.5 [facility] Comment on above: Performed By: #### H EMDF #### [facility] [address] [place] [address] Granulocytes/100 WBC (Bld) 52.8 % Normal 40.0-80.0 [facility] Comment on above: Performed By: #### H EMDF #### [facility] [address] [place] [address] Hematocrit (Bld) [Volume fraction] 31.3 % Low 35.0-47.0 [facility] Comment on above: Performed By: #### H EMDF #### [facility] [address] [place] [address] Hemoglobin (Bld) [Mass/Vol] 10.8 g/dL Low 11.7-16.0 [facility] Comment on above: Performed By: #### H EMDF #### [facility] [address] [place] [address] Lymphocytes (Bld) [#/Vol] 1.4 10*3/uL Normal 1.0-4.3 [facility] Comment on above: Performed By: #### H EMDF #### [facility] [address] [place] [address] Lymphocytes/100 WBC (Bld) 28.7 % Normal 20.0-40.0 [facility] Comment on above: Performed By: #### H EMDF #### [place] [address] [place] [address] MCH (RBC) [Entitic mass] 33.8 pg Normal 26.0-34.0 [facility] Comment on above: Performed By: #### H EMDF #### [facility] [address] [place] [address] MCHC 34.6 % Normal 32.0-36.0 [facility] Comment on above: Performed By: #### H EMDF #### [facility] [address] [place] [address] MCV (RBC) [Entitic vol] 97.9 fL Normal 79.0-98.0 [facility] Comment on above: Performed By: #### H EMDF #### [facility] [address] [place] [address] Monocytes (Bld) [#/Vol] 0.8 10*3/uL Normal 0.0-0.8 [facility] Comment on above: Performed By: #### H EMDF #### [place] [address] [place] [address] Monocytes/100 WBC (Bld) 16.6 % High 2.0-10.0 [facility] Comment on above: Performed By: #### H EMDF #### [facility] [address] [place] [address] Platelet mean volume (Bld) [Entitic vol] 7.2 fL Low 7.4-10.4 [facility] Comment on above: Performed By: #### H EMDF #### [facility] [address] [place] [address] Platelets (Bld) [#/Vol] 201 10*3/uL Normal 140-440 [facility] Comment on above: Performed By: #### H EMDF #### [facility] [address] [place] [address] RBC (Bld) [#/Vol] 3.20 10*6/uL Low 3.80-5.20 [facility] Comment on above: Performed By: #### H EMDF #### [facility] [address] [place] [address] WBC (Bld) [#/Vol] 4.9 10*3/uL Normal 3.6-10.7 [facility] Comment on above: Performed By: #### H EMDF #### [facility] [address] [place] [address] Magnesiumon 10-18-2020 Magnesium [Mass/Vol] 2.1 mg/dL Normal 1.6-2.3 [facility] Comment on above: Performed By: #### M G3, CMP3M #### [facility] [address] [place] [address] Magnesium [Mass/Vol] 1.5 mg/dL Low 1.6-2.3 [facility] Comment on above: Performed By: #### M G3, CMP3M #### [facility] [address] [place] [address] Comp Metabolic Panelon 10-17 ALP [Catalytic activity/Vol] 42 U/L Normal 38-126 [facility] Comment on above: Performed By: #### C MP3M, HEMDF #### [facility] [address] [place] [address] ALT [Catalytic activity/Vol] 14 U/L Normal 0-34 [facility] Comment on above: Result Comment: The ALT test is performed by an updated assay method. Please note that the reference intervals have been changed and are now sex specific. Performed By: #### C MP3M, HEMDF #### [facility] [address] [place] [address] Calcium [Mass/Vol] 8.0 mg/dL Low 8.4-10.4 [facility] Comment on above: Performed By: #### C MP3M, HEMDF #### [facility] [address] [place] [address] Glucose [Mass/Vol] 97 mg/dL Normal 70-100 [facility] Comment on above: Performed By: #### C MP3M, HEMDF #### [facility] [address] [place] [address] Protein [Mass/Vol] 5.5 g/dL Low 6.3-8.2 [facility] Comment on above: Performed By: #### C MP3M, HEMDF #### [facility] [address] [place] [address] Urea nitrogen [Mass/Vol] 10 mg/dL Normal 9-20 [facility] Comment on above: Performed By: #### C MP3M, HEMDF #### [facility] [address] [place] [address] Anion gap [Moles/Vol] 1 mmol/L Low 3-13 [facility] Comment on above: Performed By: #### C MP3M, HEMDF #### [facility] [address] [place] [address] AST [Catalytic activity/Vol] 33 U/L Normal 15-46 [facility] Comment on above: Performed By: #### C MP3M, HEMDF #### [facility] [address] [place] [address] Bilirubin [Mass/Vol] 0.6 mg/dL Normal 0.2-1.3 [facility] Comment on above: Performed By: #### C MP3M, HEMDF #### [facility] [address] [place] [address] CO2 [Moles/Vol] 24 mmol/L Normal 22-30 [facility] Comment on above: Performed By: #### C MP3M, HEMDF #### [facility] [address] [place] [address] Creatinine [Mass/Vol] 0.54 mg/dL Normal 0.52-1.25 [facility] Comment on above: Performed By: #### C MP3M, HEMDF #### [facility] [address] [place] [address] GFR/1.73 sq M.predicted among blacks MDRD (S/P/Bld) [Vol rate/Area] mL/min/{1.73_m2} Normal >60 [facility] Comment on above: Performed By: #### C MP3M, HEMDF #### [facility] [address] [place] [address] GFR/1.73 sq M.predicted among non-blacks MDRD (S/P/Bld) [Vol rate/Area] 86.3 mL/min/{1.73_m2} Normal >60 [facility] Comment on above: Result Comment: KDIG [...] Performed By: #### C MP3M, HEMDF #### [facility] [address] [place] [address] Chloride [Moles/Vol] 115 mmol/L High 98-107 [facility] Comment on above: Performed By: #### C MP3M, HEMDF #### [facility] [address] [place] [address] Potassium [Moles/Vol] 3.5 mmol/L Normal 3.5-5.1 [facility] Comment on above: Performed By: #### C MP3M, HEMDF #### [facility] [address] [place] [address] Sodium [Moles/Vol] 139 mmol/L Normal 135-145 [facility] Comment on above: Performed By: #### C MP3M, HEMDF #### [facility] [address] [place] [address] Albumin [Mass/Vol] 2.6 g/dL Low 3.5-5.0 [facility] Comment on above: Performed By: #### C MP3M, HEMDF #### [facility] [address] [place] [address] Hemogram w/ Autodiffon 10-17 Abs Baso Cnt 0.0 10*3/uL Normal 0.0-0.2 [facility] Comment on above: Performed By: #### C MP3M, HEMDF #### [facility] [address] [place] [address] Abs Neutrophile Cnt 4.4 10*3/uL Normal 1.8-7.0 [facility] Comment on above: Performed By: #### C MP3M, HEMDF #### [facility] [address] [place] [address] Basophils/100 WBC (Bld) 0.3 % Normal 0.0-2.0 [facility] Comment on above: Performed By: #### C MP3M, HEMDF #### [facility] [address] [place] [address] Eosinophils (Bld) [#/Vol] 0.1 10*3/uL Normal 0.0-0.5 [facility] Comment on above: Performed By: #### C MP3M, HEMDF #### [facility] [address] [place] [address] Eosinophils/100 WBC (Bld) 2.0 % Normal 1.0-6.0 [facility] Comment on above: Performed By: #### C MP3M, HEMDF #### [facility] [address] [place] [address] Erythrocyte distribution width (RBC) [Ratio] 13.8 % Normal 11.5-14.5 [facility] Comment on above: Performed By: #### C MP3M, HEMDF #### [facility] [address] [place] [address] Granulocytes/100 WBC (Bld) 69.9 % Normal 40.0-80.0 [facility] Comment on above: Performed By: #### C MP3M, HEMDF #### [facility] [address] [place] [address] Hematocrit (Bld) [Volume fraction] 28.8 % Low 35.0-47.0 [facility] Comment on above: Performed By: #### C MP3M, HEMDF #### [facility] [address] [place] [address] Hemoglobin (Bld) [Mass/Vol] 9.9 g/dL Low 11.7-16.0 [facility] Comment on above: Performed By: #### C MP3M, HEMDF #### [facility] [address] [place] [address] Lymphocytes (Bld) [#/Vol] 1.1 10*3/uL Normal 1.0-4.3 [facility] Comment on above: Performed By: #### C MP3M, HEMDF #### [facility] [address] [place] [address] Lymphocytes/100 WBC (Bld) 17.7 % Low 20.0-40.0 [facility] Comment on above: Performed By: #### C MP3M, HEMDF #### [facility] [address] [place] [address] MCH (RBC) [Entitic mass] 34.4 pg High 26.0-34.0 [facility] Comment on above: Performed By: #### C MP3M, HEMDF #### [facility] [address] [place] [address] MCHC 34.4 % Normal 32.0-36.0 [facility] Comment on above: Performed By: #### C MP3M, HEMDF #### [facility] [address] [place] [address] MCV (RBC) [Entitic vol] 99.9 fL High 79.0-98.0 [facility] Comment on above: Performed By: #### C MP3M, HEMDF #### [facility] [address] [place] [address] Monocytes (Bld) [#/Vol] 0.6 10*3/uL Normal 0.0-0.8 [facility] Comment on above: Performed By: #### C MP3M, HEMDF #### [facility] [address] [place] [address] Monocytes/100 WBC (Bld) 10.1 % High 2.0-10.0 [facility] Comment on above: Performed By: #### C MP3M, HEMDF #### [facility] [address] [place] [address] Platelet mean volume (Bld) [Entitic vol] 7.3 fL Low 7.4-10.4 [facility] Comment on above: Performed By: #### C MP3M, HEMDF #### [facility] [address] [place] [address] Platelets (Bld) [#/Vol] 190 10*3/uL Normal 140-440 [facility] Comment on above: Performed By: #### C MP3M, HEMDF #### [facility] [address] [place] [address] RBC (Bld) [#/Vol] 2.88 10*6/uL Low 3.80-5.20 [facility] Comment on above: Performed By: #### C MP3M, HEMDF #### [facility] [address] [place] [address] WBC (Bld) [#/Vol] 6.3 10*3/uL Normal 3.6-10.7 [facility] Comment on above: Performed By: #### C MP3M, HEMDF #### [facility] [address] [place] [address] Lactic Acidon 10-17-2020 Lactate [Moles/Vol] 0.9 mmol/L Normal 0.7-2.0 [facility] Comment on above: Performed By: #### C MP3M, HEMDF #### [facility] [address] [place] [address] Comp Panel with Mg Reflexon 10-16-2020 ALP [Catalytic activity/Vol] 56 U/L Normal 38-126 [facility] Comment on above: Performed By: #### H JADA CMP3M #### [facility] [address] [place] [address] ALT [Catalytic activity/Vol] 14 U/L Normal 0-34 [facility] Comment on above: Result Comment: The ALT test is performed by an updated assay method. Please note that the reference intervals have been changed and are now sex specific. Performed By: #### Gisella ELIAS CMP3M #### [facility] [address] [place] [address] AST [Catalytic activity/Vol] 33 U/L Normal 15-46 [facility] Comment on above: Performed By: #### Gisella ELIAS CMP3M #### [facility] [address] [place] [address] Calcium [Mass/Vol] 8.2 mg/dL Low 8.4-10.4 [facility] Comment on above: Performed By: #### Gisella ELIAS CMP3M #### [facility] [address] [place] [address] Glucose [Mass/Vol] 95 mg/dL Normal 70-100 [facility] Comment on above: Performed By: #### Gisella ELIAS CMP3M #### [facility] [address] [place] [address] Protein [Mass/Vol] 5.6 g/dL Low 6.3-8.2 [facility] Comment on above: Performed By: #### Gisella ELIAS CMP3M #### [facility] [address] [place] [address] Urea nitrogen [Mass/Vol] 23 mg/dL High 9-20 [facility] Comment on above: Performed By: #### Gisella ELIAS CMP3M #### [facility] [address] [place] [address] Anion gap [Moles/Vol] 8 mmol/L Normal 3-13 [facility] Comment on above: Performed By: #### H JADA CMP3M #### [facility] [address] [place] [address] Bilirubin [Mass/Vol] 0.3 mg/dL Normal 0.2-1.3 [facility] Comment on above: Performed By: #### H JADA CMP3M #### [facility] [address] [place] [address] CO2 [Moles/Vol] 18 mmol/L Low 22-30 [facility] Comment on above: Performed By: #### H JADA CMP3M #### [facility] [address] [place] [address] Creatinine [Mass/Vol] 0.87 mg/dL Normal 0.52-1.25 [facility] Comment on above: Performed By: #### H JADA CMP3M #### [facility] [address] [place] [address] GFR/1.73 sq M.predicted among blacks MDRD (S/P/Bld) [Vol rate/Area] 70.6 mL/min/{1.73_m2} Normal >60 [facility] Comment on above: Performed By: #### Gisella ELIAS CMP3M #### [facility] [address] [place] [address] GFR/1.73 sq M.predicted among non-blacks MDRD (S/P/Bld) [Vol rate/Area] 60.9 mL/min/{1.73_m2} Normal >60 [facility] Comment on above: Result Comment: KDIG [...] Performed By: #### Gisella ELIAS CMP3M #### [facility] [address] [place] [address] Albumin [Mass/Vol] 2.7 g/dL Low 3.5-5.0 [facility] Comment on above: Performed By: #### Gisella ELIAS CMP3M #### [facility] [address] [place] [address] Chloride [Moles/Vol] 116 mmol/L High 98-107 [facility] Comment on above: Performed By: #### Gisella ELIAS CMP3M #### [facility] [address] [place] [address] Potassium [Moles/Vol] 3.9 mmol/L Normal 3.5-5.1 [facility] Comment on above: Performed By: #### Gisella ELIAS CMP3M #### [facility] [address] [place] [address] Sodium [Moles/Vol] 143 mmol/L Normal 135-145 [facility] Comment on above: Performed By: #### Gisella ELIAS CMP3M #### [facility] [address] [place] [address] Hemogram w/ Autodiffon 10-16 Abs Baso Cnt 0.0 10*3/uL Normal 0.0-0.2 [facility] Comment on above: Performed By: #### Gisella ELIAS CMP3M #### [facility] [address] [place] [address] Abs Neutrophile Cnt 6.7 10*3/uL Normal 1.8-7.0 [facility] Comment on above: Performed By: #### Gisella ELIAS CMP3M #### [facility] [address] [place] [address] Basophils/100 WBC (Bld) 0.3 % Normal 0.0-2.0 [facility] Comment on above: Performed By: #### H EMDF, CMP3M #### [employer] [facility] [address] [place] [address] Eosinophils (Bld) [#/Vol] 0.0 10*3/uL Normal 0.0-0.5 [facility] Comment on above: Performed By: #### H EMDF, CMP3M #### [facility] [address] [place] [address] Eosinophils/100 WBC (Bld) 0.3 % Low 1.0-6.0 [facility] Comment on above: Performed By: #### H EMDF, CMP3M #### [facility] [address] [place] [address] Erythrocyte distribution width (RBC) [Ratio] 13.7 % Normal 11.5-14.5 [facility] Comment on above: Performed By: #### H EMDF, CMP3M #### [facility] [address] [place] [address] Granulocytes/100 WBC (Bld) 77.0 % Normal 40.0-80.0 [facility] Comment on above: Performed By: #### H EMDF, CMP3M #### [facility] [address] [place] [address] Hematocrit (Bld) [Volume fraction] 30.7 % Low 35.0-47.0 [facility] Comment on above: Performed By: #### H EMDF, CMP3M #### [facility] [employer] [address] [place] [address] Hemoglobin (Bld) [Mass/Vol] 10.3 g/dL Low 11.7-16.0 [facility] Comment on above: Performed By: #### H EMDF, CMP3M #### [facility] [address] [place] [address] Lymphocytes (Bld) [#/Vol] 1.3 10*3/uL Normal 1.0-4.3 [facility] Comment on above: Performed By: #### H EMDF, CMP3M #### [facility] [employer] [facility] [address] [place] [address] Lymphocytes/100 WBC (Bld) 14.5 % Low 20.0-40.0 [facility] Comment on above: Performed By: #### H EMDF, CMP3M #### [facility] [address] [place] [address] MCH (RBC) [Entitic mass] 33.7 pg Normal 26.0-34.0 [facility] Comment on above: Performed By: #### H EMDF, CMP3M #### [facility] [address] [place] [address] MCHC 33.6 % Normal 32.0-36.0 [facility] Comment on above: Performed By: #### H EMDF, CMP3M #### [facility] [address] [place] [address] MCV (RBC) [Entitic vol] 100.3 fL High 79.0-98.0 [facility] Comment on above: Performed By: #### H EMDF, CMP3M #### [facility] [address] [place] [address] Monocytes (Bld) [#/Vol] 0.7 10*3/uL Normal 0.0-0.8 [facility] Comment on above: Performed By: #### H EMDF, CMP3M #### [facility] [address] [place] [address] Monocytes/100 WBC (Bld) 7.9 % Normal 2.0-10.0 [facility] Comment on above: Performed By: #### H EMDF, CMP3M #### [facility] [address] [place] [address] Platelet mean volume (Bld) [Entitic vol] 7.6 fL Normal 7.4-10.4 [facility] Comment on above: Performed By: #### H EMDF, CMP3M #### [facility] [address] [place] [address] Platelets (Bld) [#/Vol] 190 10*3/uL Normal 140-440 [facility] Comment on above: Performed By: #### H EMDF, CMP3M #### [facility] [address] [place] [address] RBC (Bld) [#/Vol] 3.06 10*6/uL Low 3.80-5.20 [facility] Comment on above: Performed By: #### H JADA CMP3M #### [facility] [address] [place] [address] WBC (Bld) [#/Vol] 8.7 10*3/uL Normal 3.6-10.7 [facility] Comment on above: Performed By: #### H JADA CMP3M #### [facility] [address] [place] [address] Procalcitoninon 10-16-2020 Procalcitonin 6.93 ng/mL High 0.00-0.09 [facility] Comment on above: Performed By: #### M G3 CMP3M #### [facility] [address] [place] [address] Interpretation See Below Normal [facility] Comment on above: Result Comment: PCT <0.50 = Low risk of severe sepsis and/or septic shock. PCT >2.00 = High risk of severe sepsis and/or septic shock. Performed By: #### M G3 CMP3M #### [facility] [address] [place] [address] Comp Panel with Mg Reflexon 10-15-2020 Calcium [Mass/Vol] 8.3 mg/dL Low 8.4-10.4 [facility] Comment on above: Performed By: #### C MP3M, HEMDF #### [facility] [address] [place] [address] ALP [Catalytic activity/Vol] 84 U/L Normal 38-126 [facility] Comment on above: Performed By: #### C MP3M, HEMDF #### [facility] [address] [place] [address] ALT [Catalytic activity/Vol] 15 U/L Normal 0-34 [facility] Comment on above: Result Comment: The ALT test is performed by an updated assay method. Please note that the reference intervals have been changed and are now sex specific. Performed By: #### C MP3M, HEMDF #### [facility] [address] [place] [address] Anion gap [Moles/Vol] 9 mmol/L Normal 3-13 [facility] Comment on above: Performed By: #### C MP3M, HEMDF #### [facility] [address] [place] [address] AST [Catalytic activity/Vol] 37 U/L Normal 15-46 [facility] Comment on above: Performed By: #### C MP3M, HEMDF #### [facility] [address] [place] [address] Bilirubin [Mass/Vol] 0.5 mg/dL Normal 0.2-1.3 [facility] Comment on above: Performed By: #### C MP3M, HEMDF #### [facility] [address] [place] [address] CO2 [Moles/Vol] 18 mmol/L Low 22-30 [facility] Comment on above: Performed By: #### C MP3M, HEMDF #### [facility] [address] [place] [address] Creatinine [Mass/Vol] 1.59 mg/dL High 0.52-1.25 [facility] Comment on above: Performed By: #### C MP3M, HEMDF #### [facility] [address] [place] [address] GFR/1.73 sq M.predicted among blacks MDRD (S/P/Bld) [Vol rate/Area] 34.1 mL/min/{1.73_m2} Abnormal >60 [facility] Comment on above: Performed By: #### C MP3M, HEMDF #### [facility] [address] [place] [address] GFR/1.73 sq M.predicted among non-blacks MDRD (S/P/Bld) [Vol rate/Area] 29.4 mL/min/{1.73_m2} Abnormal >60 [facility] Comment on above: Result Comment: KDIG [...] Performed By: #### Alexis MP3M, HEMDF #### [facility] [address] [place] [address] Glucose [Mass/Vol] 93 mg/dL Normal 70-100 [facility] Comment on above: Performed By: #### C MP3M, HEMDF #### [facility] [address] [place] [address] Protein [Mass/Vol] 5.6 g/dL Low 6.3-8.2 [facility] Comment on above: Performed By: #### Alexis MP3M, HEMDF #### [facility] [address] [place] [address] Urea nitrogen [Mass/Vol] 40 mg/dL High 9-20 [facility] Comment on above: Performed By: #### C MP3M, HEMDF #### [facility] [address] [place] [address] Potassium [Moles/Vol] 4.1 mmol/L Normal 3.5-5.1 [facility] Comment on above: Performed By: #### C MP3M, HEMDF #### [facility] [address] [place] [address] Albumin [Mass/Vol] 2.7 g/dL Low 3.5-5.0 [facility] Comment on above: Performed By: #### C MP3M, HEMDF #### [facility] [address] [place] [address] Chloride [Moles/Vol] 108 mmol/L High 98-107 [facility] Comment on above: Performed By: #### C MP3M, HEMDF #### [facility] [address] [place] [address] Sodium [Moles/Vol] 135 mmol/L Normal 135-145 [facility] Comment on above: Performed By: #### C MP3M, HEMDF #### [facility] [address] [place] [address] Hemogram w/ Autodiffon 10-15 Abs Baso Cnt 0.0 10*3/uL Normal 0.0-0.2 [facility] Comment on above: Performed By: #### C MP3M, HEMDF #### [facility] [address] [place] [address] Abs Neutrophile Cnt 7.5 10*3/uL High 1.8-7.0 [facility] Comment on above: Performed By: #### C MP3M, HEMDF #### [facility] [address] [place] [address] Basophils/100 WBC (Bld) 0.4 % Normal 0.0-2.0 [facility] Comment on above: Performed By: #### C MP3M, HEMDF #### [facility] [address] [place] [address] Eosinophils (Bld) [#/Vol] 0.0 10*3/uL Normal 0.0-0.5 [facility] Comment on above: Performed By: #### C MP3M, HEMDF #### [facility] [address] [place] [address] Eosinophils/100 WBC (Bld) 0.2 % Low 1.0-6.0 [facility] Comment on above: Performed By: #### C MP3M, HEMDF #### [facility] [address] [place] [address] Erythrocyte distribution width (RBC) [Ratio] 13.9 % Normal 11.5-14.5 [facility] Comment on above: Performed By: #### C MP3M, HEMDF #### [facility] [address] [place] [address] Granulocytes/100 WBC (Bld) 76.2 % Normal 40.0-80.0 [facility] Comment on above: Performed By: #### C MP3M, HEMDF #### [facility] [address] [place] [address] Hematocrit (Bld) [Volume fraction] 32.6 % Low 35.0-47.0 [facility] Comment on above: Performed By: #### C MP3M, HEMDF #### [facility] [address] [place] [address] Hemoglobin (Bld) [Mass/Vol] 11.2 g/dL Low 11.7-16.0 [facility] Comment on above: Performed By: #### C MP3M, HEMDF #### [facility] [address] [place] [address] Lymphocytes (Bld) [#/Vol] 1.4 10*3/uL Normal 1.0-4.3 [facility] Comment on above: Performed By: #### C MP3M, HEMDF #### [facility] [address] [place] [address] Lymphocytes/100 WBC (Bld) 14.7 % Low 20.0-40.0 [facility] Comment on above: Performed By: #### C MP3M, HEMDF #### [facility] [address] [place] [address] MCH (RBC) [Entitic mass] 34.6 pg High 26.0-34.0 [facility] Comment on above: Performed By: #### C MP3M, HEMDF #### [facility] [address] [place] [address] MCHC 34.5 % Normal 32.0-36.0 [facility] Comment on above: Performed By: #### C MP3M, HEMDF #### [facility] [address] [place] [address] MCV (RBC) [Entitic vol] 100.5 fL High 79.0-98.0 [facility] Comment on above: Performed By: #### C MP3M, HEMDF #### [facility] [address] [place] [address] Monocytes (Bld) [#/Vol] 0.8 10*3/uL Normal 0.0-0.8 [facility] Comment on above: Performed By: #### C MP3M, HEMDF #### [facility] [address] [place] [address] Monocytes/100 WBC (Bld) 8.5 % Normal 2.0-10.0 [facility] Comment on above: Performed By: #### C MP3M, HEMDF #### [facility] [address] [place] [address] Platelet mean volume (Bld) [Entitic vol] 7.7 fL Normal 7.4-10.4 [facility] Comment on above: Performed By: #### C MP3M, HEMDF #### [facility] [address] [place] [address] Platelets (Bld) [#/Vol] 211 10*3/uL Normal 140-440 [facility] Comment on above: Performed By: #### C MP3M, HEMDF #### [facility] [address] [place] [address] RBC (Bld) [#/Vol] 3.25 10*6/uL Low 3.80-5.20 [facility] Comment on above: Performed By: #### C MP3M, HEMDF #### [facility] [address] [place] [address] WBC (Bld) [#/Vol] 9.8 10*3/uL Normal 3.6-10.7 [facility] Comment on above: Performed By: #### C MP3M, HEMDF #### [facility] [address] [place] [address] Add on test from HISon 10-14 Add on test from [facility] Accepted Normal [facility] Comment on above: Result Comment: Spec imen available & acceptable for analysis. Performed By: #### M G3, CMP3M #### [facility] [address] [place] [address] Basic Metabolic Panelon -0 Anion gap [Moles/Vol] 6 mmol/L Normal 3-13 [facility] Comment on above: Performed By: #### B MP3M #### [facility] [address] [place] [address] Calcium [Mass/Vol] 8.2 mg/dL Low 8.4-10.4 [facility] Comment on above: Performed By: #### B MP3M #### [facility] [address] [place] [address] CO2 [Moles/Vol] 22 mmol/L Normal 22-30 [facility] Comment on above: Performed By: #### B MP3M #### [facility] [address] [place] [address] Glucose [Mass/Vol] 109 mg/dL High 70-100 [facility] Comment on above: Performed By: #### B MP3M #### [facility] [address] [place] [address] Urea nitrogen [Mass/Vol] 33 mg/dL High 9-20 [facility] Comment on above: Performed By: #### B MP3M #### [facility] [address] [place] [address] Creatinine [Mass/Vol] 1.30 mg/dL High 0.52-1.25 [facility] Comment on above: Performed By: #### B MP3M #### [facility] [address] [place] [address] GFR/1.73 sq M.predicted among blacks MDRD (S/P/Bld) [Vol rate/Area] 43.5 mL/min/{1.73_m2} Abnormal >60 [facility] Comment on above: Performed By: #### B MP3M #### [facility] [address] [place] [address] GFR/1.73 sq M.predicted among non-blacks MDRD (S/P/Bld) [Vol rate/Area] 37.5 mL/min/{1.73_m2} Abnormal >60 [facility] Comment on above: Result Comment: KDIG [...] secretion. Performed By: #### B MP3M #### [facility] [address] [place] [address] Chloride [Moles/Vol] 107 mmol/L Normal 98-107 [facility] Comment on above: Performed By: #### B MP3M #### [facility] [address] [place] [address] Potassium [Moles/Vol] 4.3 mmol/L Normal 3.5-5.1 [facility] Comment on above: Performed By: #### B MP3M #### [facility] [address] [place] [address] Sodium [Moles/Vol] 135 mmol/L Normal 135-145 [facility] Comment on above: Performed By: #### B MP3M #### [facility] [address] [place] [address] Calcium [Mass/Vol] 9.1 mg/dL Normal 8.4-10.4 [facility] Comment on above: Performed By: #### B MP3M #### [facility] [address] [place] [address] Glucose [Mass/Vol] 96 mg/dL Normal 70-100 [facility] Comment on above: Performed By: #### B MP3M #### [facility] [address] [place] [address] Anion gap [Moles/Vol] 10 mmol/L Normal 3-13 [facility] Comment on above: Performed By: #### B MP3M #### [facility] [address] [place] [address] CO2 [Moles/Vol] 21 mmol/L Low 22-30 [facility] Comment on above: Performed By: #### B MP3M #### [facility] [address] [place] [address] Creatinine [Mass/Vol] 1.38 mg/dL High 0.52-1.25 [facility] Comment on above: Performed By: #### B MP3M #### [facility] [address] [place] [address] GFR/1.73 sq M.predicted among blacks MDRD (S/P/Bld) [Vol rate/Area] 40.4 mL/min/{1.73_m2} Abnormal >60 [facility] Comment on above: Performed By: #### B MP3M #### [facility] [address] [place] [address] GFR/1.73 sq M.predicted among non-blacks MDRD (S/P/Bld) [Vol rate/Area] 34.9 mL/min/{1.73_m2} Abnormal >60 [facility] Comment on above: Result Comment: KDIG [...] secretion. Performed By: #### B MP3M #### [facility] [address] [place] [address] Urea nitrogen [Mass/Vol] 33 mg/dL High 9-20 [facility] Comment on above: Performed By: #### B MP3M #### [facility] [address] [place] [address] Potassium [Moles/Vol] 4.2 mmol/L Normal 3.5-5.1 [facility] Comment on above: Performed By: #### B MP3M #### [facility] [address] [place] [address] Sodium [Moles/Vol] 132 mmol/L Low 135-145 [facility] Comment on above: Performed By: #### B MP3M #### [facility] [address] [place] [address] Chloride [Moles/Vol] 101 mmol/L Normal 98-107 [facility] Comment on above: Performed By: #### B MP3M #### [facility] [address] [place] [address] C-Reactive Proteinon 021 CRP [Mass/Vol] mg/L Normal 0.0-6.0 [facility] Comment on above: Result Comment: . Performed By: #### B MP3M #### [facility] [address] [place] [address] CT Abdomen/Pelvis w/ Contras ton 10-14-2020 CT Abdomen/Pelvis w/ Contrast Patient Name: KATHERINE JUDGE Computed Tomography ACCESSION EXAM DATE/TIME PROCEDURE ORDERING PROVIDER [id number] 10/13/2020 23:[address] Abdomen/Pelvis w/ IV MARK DICKERSON, Contrast (IV Onl JULITA CPT code 28305 Q9967 Reason For Exam (CT Abdomen/Pelvis w/ [...] Transcribed Date and Time: 10/13/2020 11:53 Normal [facility] GASTROINTESTINAL PCR PANELon 10-14-2020 GASTROINTESTINAL PCR PANEL GASTROINTESTINAL PCR PANEL --> Status: F NEGATIVE: No targets were detected by the [employer] Gastrointestinal PCR Panel. _ The [employer] Gastrointestinal PCR Panel can detect the following targets: Campylobacter, Plesiomonas shigelloides, Salmonella, Vibrio species, Vibrio cholerae, Yersinia enterocolitica, Shiga toxin-producing E coli (STEC) including E coli O157, Enterotoxigenic E coli (ETEC), Shigella/Enteroinvasive E coli (EIEC), Cryptosporidium, Cyclospora cayetanensis, Entamoeba histolytica, Giardia lamblia, Adenovirus F 40/41, Astrovirus, Norovirus GI/GII, Rotavirus A, Sapovirus Gastrointestinal PCR Panel. _ The [employer] Gastrointestinal PCR Panel can detect the following targets: Campylobacter, Plesiomonas shigelloides, Salmonella, Vibrio species, Vibrio cholerae, Yersinia enterocolitica, Shiga toxin-producing E coli (STEC) including E coli O157, Enterotoxigenic E coli (ETEC), Shigella/Enteroinvasive E coli (EIEC), Cryptosporidium, Cyclospora cayetanensis, Entamoeba histolytica, Giardia lamblia, Adenovirus F 40/41, Astrovirus, Norovirus GI/GII, Rotavirus A, Sapovirus Normal [facility] Comment on above: Performed By: #### B FGI #### [facility] [address] [place] [address] Glucoseon 10-14-2020 Glucose [Mass/Vol] 107 mg/dL High 70-100 [facility] Comment on above: Performed By: #### B MP3M #### [facility] [address] [place] [address] Hepatic Functionon 1 ALP [Catalytic activity/Vol] 216 U/L High 38-126 [facility] Comment on above: Performed By: #### B MP3M #### [facility] [address] [place] [address] ALT [Catalytic activity/Vol] 17 U/L Normal 0-34 [facility] Comment on above: Result Comment: The ALT test is performed by an updated assay method. Please note that the reference intervals have been changed and are now sex specific. Performed By: #### B MP3M #### [facility] [address] [place] [address] AST [Catalytic activity/Vol] 50 U/L High 15-46 [facility] Comment on above: Performed By: #### B MP3M #### [facility] [address] [place] [address] Bilirubin [Mass/Vol] 0.9 mg/dL Normal 0.2-1.3 [facility] Comment on above: Performed By: #### B MP3M #### [facility] [address] [place] [address] Bilirubin.indirect [Mass/Vol] 0.0 mg/dL Normal 0.0-0.3 [facility] Comment on above: Performed By: #### B MP3M #### [facility] [address] [place] [address] Protein [Mass/Vol] 5.9 g/dL Low 6.3-8.2 [facility] Comment on above: Performed By: #### B MP3M #### [facility] [address] [place] [address] Albumin [Mass/Vol] 3.0 g/dL Low 3.5-5.0 [facility] Comment on above: Performed By: #### B MP3M #### [facility] [address] [place] [address] Lactic Acidon 10-14-2020 Lactate [Moles/Vol] 1.5 mmol/L Normal 0.7-2.0 [facility] Comment on above: Performed By: #### M G3, CMP3M #### [facility] [address] [place] [address] Magnesiumon 10-14-2020 Magnesium [Mass/Vol] 1.6 mg/dL Normal 1.6-2.3 [facility] Comment on above: Performed By: #### B MP3M #### [facility] [address] [place] [address] Phosphoruson 10-14-2020 Phosphate [Mass/Vol] 4.6 mg/dL High 2.5-4.5 [facility] Comment on above: Performed By: #### B MP3M #### [facility] [address] [place] [address] Procalcitoninon 10-14-2020 Procalcitonin 7.54 ng/mL High 0.00-0.09 [facility] Comment on above: Performed By: #### B MP3M #### [facility] [address] [place] [address] Interpretation See Below Normal [facility] Comment on above: Result Comment: PCT <0.50 = Low risk of severe sepsis and/or septic shock. PCT >2.00 = High risk of severe sepsis and/or septic shock. Performed By: #### B MP3M #### [facility] [address] [place] [address] SARS-CoV-2 (LAB DEPT)on SARS-CoV-2 (COVID-19) RNA ALTHEA+probe Ql (Unsp spec) see below Normal [facility] Comment on above: Result Comment: Not Detected Expected Result: Not Detected _ Isothermal nucleic acid amplification performed on the [employer] by the [facility] Negative results do not preclude SARS-CoV-2 infection and should not be used as the sole basis for treatment or other patient management decisions. This assay was developed by [employer] and distributed under an Emergency Use Authorization (EUA) granted by the [facility] for the qualitative detection of SARS-CoV-2 nucleic acid. Provider and patient fact sheets can be found at https://www.fda.gov/media/262933/download and https://www.fda.gov/media/295992/download. Performed By: #### B MP3M #### [facility] [address] [place] [address] TS GELon 10-14-2020 TS GEL ABO Group: O Rh, Gel: POS Antibody Screen Gel: NEG Normal [facility] Comment on above: Performed By: #### T SGL #### [facility] Troponin Ion 10-14-2020 Troponin I.cardiac [Mass/Vol] ng/mL Normal 0.000-0.03 4 [facility] Comment on above: Result Comment: . Performed By: #### B MP3M #### [facility] [address] [place] [address] ED Provider Noteon ED Provider Note JULIETTE [...] patient come from an ECF, SNF, Rehab, Longterm or other Congregate setting: no (If yes [...] otherwise acutely negative except as stated in [facility]. PAST MEDICAL HISTORY Past Medical History: Diagnosis [...] Gatherings with Friends and Family: ? Attends [employer] Services: ? Active Member of Clubs or Organizations: ? Attends Club or Organization Meetings: ? Marital Status: Intimate Partner Violence: ? Fear of Current or Ex-Partner: ? Emotionally Abused: ? Physically Abused: ? Sexually Abused: SCREENINGS PHYS (more content not included)... [facility] ED Provider Note Emergency Department Encounter [facility] ED Patient: Katherine Judge : 1935 [...] Solutions Hugh Cesar MD 10/13/20 2259 Normal [facility] Fecal Occult,Stool Single Sp econ 10-13-2020 Fecal Occult,Stool Single Spec Positive Normal Negative [facility] Comment on above: Performed By: #### Fernando Hammond CMP3M #### [facility] [address] [place] [address] Hemogram w/ Autodiffon 10-13 Abs Baso Cnt 0.0 10*3/uL Normal 0.0-0.2 [facility] Comment on above: Performed By: #### Fernando Hammond CMP3M #### [facility] [address] [place] [address] Abs Neutrophile Cnt 7.2 10*3/uL High 1.8-7.0 [facility] Comment on above: Performed By: #### Fernando Hammond CMP3M #### [facility] [address] [place] [address] Basophils/100 WBC (Bld) 0.1 % Normal 0.0-2.0 [facility] Comment on above: Performed By: #### Fernando Hammond CMP3M #### [facility] [address] [place] [address] Eosinophils (Bld) [#/Vol] 0.0 10*3/uL Normal 0.0-0.5 [facility] Comment on above: Performed By: #### Fernando Hammond CMP3M #### [facility] [address] [place] [address] Eosinophils/100 WBC (Bld) 0.0 % Low 1.0-6.0 [facility] Comment on above: Performed By: #### Fernando Hammond CMP3M #### [facility] [address] [place] [address] Erythrocyte distribution width (RBC) [Ratio] 13.8 % Normal 11.5-14.5 [facility] Comment on above: Performed By: #### Fernando Hammond CMP3M #### [facility] [address] [place] [address] Granulocytes/100 WBC (Bld) 87.0 % High 40.0-80.0 [facility] Comment on above: Performed By: #### Fernando Hammond CMP3M #### [facility] [address] [place] [address] Hematocrit (Bld) [Volume fraction] 47.8 % High 35.0-47.0 [facility] Comment on above: Performed By: #### M G3, CMP3M #### [facility] [address] [place] [address] Hemoglobin (Bld) [Mass/Vol] 16.0 g/dL Normal 11.7-16.0 [facility] Comment on above: Performed By: #### M G3, CMP3M #### [facility] [address] [place] [address] Lymphocytes (Bld) [#/Vol] 0.7 10*3/uL Low 1.0-4.3 [facility] Comment on above: Performed By: #### Fernando G3, CMP3M #### [facility] [address] [place] [address] Lymphocytes/100 WBC (Bld) 8.9 % Low 20.0-40.0 [facility] Comment on above: Performed By: #### Fernando G3, CMP3M #### [facility] [address] [place] [address] MCH (RBC) [Entitic mass] 33.6 pg Normal 26.0-34.0 [facility] Comment on above: Performed By: #### Fernando G3, CMP3M #### [facility] [address] [place] [address] MCHC 33.4 % Normal 32.0-36.0 [facility] Comment on above: Performed By: #### M G3, CMP3M #### [facility] [address] [place] [address] MCV (RBC) [Entitic vol] 100.9 fL High 79.0-98.0 [facility] Comment on above: Performed By: #### M G3, CMP3M #### [facility] [address] [place] [address] Monocytes (Bld) [#/Vol] 0.3 10*3/uL Normal 0.0-0.8 [facility] Comment on above: Performed By: #### Fernando G3, CMP3M #### [facility] [address] [place] [address] Monocytes/100 WBC (Bld) 4.0 % Normal 2.0-10.0 [facility] Comment on above: Performed By: #### M G3, CMP3M #### [facility] [address] [place] [address] Platelet mean volume (Bld) [Entitic vol] 7.6 fL Normal 7.4-10.4 [facility] Comment on above: Performed By: #### M G3, CMP3M #### [facility] [address] [place] [address] Platelets (Bld) [#/Vol] 302 10*3/uL Normal 140-440 [facility] Comment on above: Performed By: #### M G3, CMP3M #### [facility] [address] [place] [address] RBC (Bld) [#/Vol] 4.74 10*6/uL Normal 3.80-5.20 [facility] Comment on above: Performed By: #### M G3, CMP3M #### [facility] [address] [place] [address] WBC (Bld) [#/Vol] 8.3 10*3/uL Normal 3.6-10.7 [facility] Comment on above: Performed By: #### M G3, CMP3M #### [facility] [address] [place] [address] Lactic Acidon 10-13-2020 Lactate [Moles/Vol] 3.9 mmol/L Critically high 0.7-2.0 [facility] Comment on above: Performed By: #### B MP3M #### [facility] [address] [place] [address] Blood Pressure Cuff Sizeon 0 09-10-2020 Blood Pressure Cuff Size Adult [facility] Work Phone: Tobacco Screening.on Tobacco use status CPHS b) No [facility] Work Phone: Tobacco Screening.on Fall risk assessment a) No falls within the last year [facility] Work Phone: Tobacco use status HS b) No [facility] Work Phone: Lipid Panelon 03-12-2020 Cholesterol [Mass/Vol] 148 mg/dL 0 - 199 [facility] Work Phone: Comment [...] dosing. Cholesterol in HDL [Mass/Vol] 40.7 mg/dL [facility] Work Phone: Comment on above: . AGE VERY LOW LOW N ORMAL HIGH 0-19 Y < 35 < 40 40-45 ---- 20- 24 Y ---- < 40 >45 ---- >24 Y ---- < 40 40-60 >60. Cholesterol in LDL [Mass/Vol] 76 mg/dL 0 - 99 [facility] Work Phone: Comment on above: . NEAR BORD AGE TORI RABLE OPTIMAL HIGH HIGH VERY HIGH 0-19 Y 0 - 109 --- 110-129 >/= 130 ---- 20-24 Y 0 - 119 --- 120-159 >/= 160 ---- >24 Y 0 - 99 100-129 130-159 160-189 >/=190. Cholesterol.total/Cho lesterol in HDL [Mass ratio] 3.6 {ratio} [facility] Work Phone: Comment on above: REF VALUESDESIRABLE < 3.4HIGH RISK > 5.0 Triglyceride [Mass/Vol] 159 mg/dL above high threshold 0 - 149 [facility] Work Phone: Comment on [...] Lipid Panel 32 mg/dL 0 - 40 [facility] Work Phone: Metabolic Panelon 03-12-2020 ALP [Catalytic activity/Vol] 54 U/L 33 - 136 [facility] Work Phone: Anion gap [Moles/Vol] 16 mmol/L 10 - 20 [facility] Work Phone: Bilirubin [Mass/Vol] 0.6 mg/dL 0.0 - 1.2 [facility] Work Phone: Calcium [Mass/Vol] 9.9 mg/dL 8.6 - 10.6 [facility] Work Phone: Chloride [Moles/Vol] 103 mmol/L 98 - 107 [facility] Work Phone: CO2 [Moles/Vol] 27 mmol/L 21 - 32 [facility] Work Phone: Creatinine [Mass/Vol] 1.18 mg/dL above high threshold See Below [facility] Work Phone: Comment on above: Reference Range: 0.5 0 - 1.05 Glucose [Mass/Vol] 76 mg/dL 74 - 99 [facility] Work Phone: Potassium [Moles/Vol] 4.2 mmol/L 3.5 - 5.3 [facility] Work Phone: Protein [Mass/Vol] 7.1 g/dL 6.4 - 8.2 [facility] Work Phone: Sodium [Moles/Vol] 142 mmol/L 136 - 145 [facility] Work Phone: Urea nitrogen [Mass/Vol] 28 mg/dL above high threshold 6 - 23 [facility] Work Phone: Otheron 03-12-2020 Albumin BCP dye [Mass/Vol] 4.0 g/dL 3.4 - 5.0 [facility] Work Phone: ALT With P-5'-P [Catalytic activity/Vol] 17 U/L 7 - 45 [facility] Work Phone: Comment on above: Patients treated wit h Sulfasalazine may generate falsely decreased results for ALT. AST With P-5'-P [Catalytic activity/Vol] 23 U/L 9 - 39 [facility] Work Phone: 44 {mL/min/1.73m2} Abnormal >60 [facility] Work Phone: 53 {mL/min/1.73m2} Abnormal >60 [facility] Work Phone: Comment on [...] signed by: DAYAMI LOZANO 11/10/19 15:55 Normal [facility] Work Phone: Comment on above: ORDER REVISED TO A C T ABDOMEN AND PELVIS W IV CONTRAST BY RADIOLOGIST; Original Order Number: [id number] Complete Blood Count + Alvino fatima 11-10-2019 Basophils (Bld) [#/Vol] 0.05 {x10E9/L} See Below [facility] Work Phone: Comment on above: Reference Range: 0.0 0 - 0.10 Ordering Provider: Rachid JORDAN [address] Basophils/100 WBC (Bld) 0.6 % 0.0 - 2.0 [facility] Work Phone: Comment on above: Ordering Provider: Rachid JORDAN 24298 Eosinophils (Bld) [#/Vol] 0.12 {x10E9/L} See Below [facility] Work Phone: Comment on above: Reference Range: 0.0 0 - 0.40 Ordering Provider: Rachid JORDAN [address]69[address] Eosinophils/100 WBC (Bld) 1.5 % 0.0 - 6.0 [facility] Work Phone: Comment on above: Ordering Provider: Rachid JORDAN 23583 Erythrocyte distribution width (RBC) [Ratio] 13.2 % See Below [facility] Work Phone: Comment on above: Reference Range: 11. 5 - 14.5 Ordering Provider: Rachid JORDAN [address] Hematocrit (Bld) [Volume fraction] 40.7 % See Below [facility] Work Phone: Comment on above: Reference Range: 36. 0 - 46.0 Ordering Provider: Rachid JORDAN [address]3516 Hemoglobin (Bld) [Mass/Vol] 12.6 g/dL See Below [facility] Work Phone: Comment on above: Reference Range: 12. 0 - 16.0 Ordering Provider: Rachid JORDAN 28675 Lymphocytes (Bld) [#/Vol] 2.25 {x10E9/L} See Below [facility] Work Phone: Comment on above: Reference Range: 0.8 0 - 3.00 Ordering Provider: Rachid JORDAN [address]6870 Lymphocytes/100 WBC (Bld) 27.3 % See Below [facility] Work Phone: Comment on above: Reference Range: 13. 0 - 44.0 Ordering Provider: Rachid JORDAN 85094 MCHC (RBC) [Mass/Vol] 31.0 g/dL below low threshold See Below [facility] Work Phone: Comment on above: Reference Range: 32. 0 - 36.0 Ordering Provider: Rachid JORDAN [address]37[address] MCV (RBC) [Entitic vol] 105 fL above high threshold 80 - 100 [facility] Work Phone: Comment on above: Ordering Provider: Rachid JORDAN 16969 Monocytes (Bld) [#/Vol] 0.57 {x10E9/L} See Below [facility] Work Phone: Comment on above: Reference Range: 0.0 5 - 0.80 Ordering Provider: Rachid JORDAN 39415 Monocytes/100 WBC (Bld) 6.9 % 2.0 - 10.0 [facility] Work Phone: Comment on above: Ordering Provider: Rachid JORDAN 47687 Neutrophils (Bld) [#/Vol] 5.20 {x10E9/L} See Below [facility] Work Phone: Comment on above: Reference Range: 1.6 0 - 5.50 Ordering Provider: Rachid JORDAN 59313 Neutrophils/100 WBC (Bld) 63.0 % See Below [facility] Work Phone: Comment on above: Reference Range: 40. 0 - 80.0 Ordering Provider: Rachid JORDAN 33338 Platelets (Bld) [#/Vol] 288 {x10E9/L} 150 - 450 [facility] Work Phone: Comment on above: Platelet count may b e higher than reported due to presence of PlateletClumps. Ordering Provider: Rachid JORDAN 53409 RBC (Bld) [#/Vol] 3.87 {x10E12/L} below low threshold See Below [facility] Work Phone: Comment on above: Reference Range: 4.0 0 - 5.20 Ordering Provider: Rachid JORDAN 30725 WBC (Bld) [#/Vol] 0.0 {/100_WBC} 0.0 - 0.0 [facility] Work Phone: Comment on above: Ordering Provider: Rachid JORDAN 43059 WBC (Bld) [#/Vol] 8.3 {x10E9/L} 4.4 - 11.3 [facility] Work Phone: Comment on above: Ordering Provider: Rachid JORDAN 48742 Complete Blood Count + Differential 0.7 % 0.0 - 0.9 [facility] Work Phone: Comment on above: Immature Granulocyte Count (IG) includes promyelocytes, myelocytes and metamyelocytes but does not include bands. Percent differential counts (%) should be interpreted in the context of the absolute cell counts (cells/L). Ordering Provider: Rachid JORADN 19839 Lipase, Serumon 11-10-2019 Lipase [Catalytic activity/Vol] 37 U/L 9 - 82 [facility] Work Phone: Comment on above: Venipuncture immedia tely after or during the administration of Metamizole may lead to falsely low results. Testing should be performed immediately prior to Metamizole dosing. W-lopxyu-u-benzoquinone imine (metabolite of Acetaminophen) will generate erroneously low results in samples for patients that have taken toxic doses of acetaminophen. Ordering Provider: Rachid JORDAN 00180 Metabolic Panelon 11-10-2019 ALP [Catalytic activity/Vol] 75 U/L 33 - 136 [facility] Work Phone: Comment on above: Ordering Provider: Rachid JORDAN 47136 Anion gap [Moles/Vol] 16 mmol/L 10 - 20 [facility] Work Phone: Comment on above: Ordering Provider: Rachid JORDAN 09802 Bilirubin [Mass/Vol] 0.6 mg/dL 0.0 - 1.2 [facility] Work Phone: Comment on above: Ordering Provider: Rachid JORDAN 12862 Calcium [Mass/Vol] 9.9 mg/dL 8.6 - 10.3 [facility] Work Phone: Comment on above: Ordering Provider: Rachid JORDAN 90894 Chloride [Moles/Vol] 99 mmol/L 98 - 107 [facility] Work Phone: Comment on above: Ordering Provider: Rachid JORDAN 61302 CO2 [Moles/Vol] 25 mmol/L 21 - 32 [facility] Work Phone: Comment on above: Ordering Provider: Rachid JORDAN 79644 Creatinine [Mass/Vol] 0.95 mg/dL See Below [facility] Work Phone: Comment on above: Reference Range: 0.5 0 - 1.05 Ordering Provider: Rachid JORDAN 09617 Glucose [Mass/Vol] 105 mg/dL above high threshold 74 - 99 [facility] Work Phone: Comment on above: Ordering Provider: Rachid JORDAN 23781 Potassium [Moles/Vol] 4.8 mmol/L 3.5 - 5.3 [facility] [facility] Work [facility]: Comment on above: MILD HEMOLYSIS DETEC MAURA. The result may be falsely elevated due tohemolysis or other interferents. Clinical correlation is recommended.Repeat testing may be considered. Ordering Provider: Rachid JORDAN [id number] Protein [Mass/Vol] 8.2 g/dL 6.4 - 8.2 [facility] Work Phone: Comment on above: Ordering Provider: Rachid JORDAN 78692 Sodium [Moles/Vol] 135 mmol/L below low threshold 136 - 145 [facility] Work Phone: Comment on above: Ordering Provider: Rachid JORDAN 60467 Urea nitrogen [Mass/Vol] 18 mg/dL 6 - 23 [facility] Work Phone: Comment on above: Ordering Provider: Rachid JORDAN [id number] Otheron 11-10-2019 Albumin BCP dye [Mass/Vol] 3.7 g/dL 3.4 - 5.0 [facility] Work Phone: Comment on above: Ordering Provider: Rachid JORDAN 72474 ALT With P-5'-P [Catalytic activity/Vol] 13 U/L 7 - 45 [facility] Work Phone: Comment on above: Patients treated wit h Sulfasalazine may generate falsely decreased results for ALT. Ordering Provider: Rachid JORDAN 16309 AST With P-5'-P [Catalytic activity/Vol] 25 U/L 9 - 39 [facility] Work Phone: Comment on above: MILD HEMOLYSIS DETEC MAURA. The result may be falsely elevated due tohemolysis or other interferents. Clinical correlation is recommended.Repeat testing may be considered. Ordering Provider: Rachid JORDAN 76987 56 {mL/min/1.73m2} Abnormal >60 [facility] Work Phone: Comment on above: Ordering Provider: Rachid JORDAN 66022 68 {mL/min/1.73m2} >60 [facility] Work Phone: Comment on above: CALCULATIONS OF ALVARO MATED GFR ARE PERFORMED USING THE MDRD STUDY EQUATION FOR THE IDMS-TRACEABLE CREATININE METHODS. CLIN CHEM 2007;53:766-72 Ordering Provider: Rachid JORDAN 15425 Urinalysison 11-10-2019 Appearance (U) CLEAR CLEAR [facility] Work Phone: Comment on above: Ordering Provider: Rachid JORDAN 87990 Color (U) STRAW See Below [facility] Work Phone: Comment on above: Reference Range: STR AW,YELLOW Ordering Provider: Rachid JORDAN 10480 Glucose Ql (U) Negative NEGATIVE [facility] Work Phone: Comment on above: Ordering Provider: Rachid JORDAN 31902 Ketones Ql (U) Negative NEGATIVE [facility] Work Phone: Comment on above: Ordering Provider: Rachid JORDAN 84435 Leukocyte esterase Test strip Ql (U) Negative NEGATIVE [facility] Work Phone: Comment on above: Ordering Provider: Rachid JORDAN 77763 pH (U) 6.0 [pH] 5.0 - 8.0 [facility] Work Phone: Comment on above: Ordering Provider: Rachid JORDAN 04238 Protein (U) [Mass/Vol] Negative NEGATIVE [facility] Work Phone: Comment on above: Ordering Provider: Rachid JORDAN 16663 RBC (U) [#/Vol] SMALL (1+) Abnormal NEGATIVE [facility] Work Phone: Comment on above: Ordering Provider: Rachid JORDAN 50882 Specific gravity (U) [Rel density] 1.028 1 See Below [facility] Work Phone: Comment on above: Reference Range: 1.0 05 - 1.035 Ordering Provider: Rachid JORDAN 39316 Urinalysis <2.0 0.0 - 1.9 [facility] Work Phone: Comment on above: Ordering Provider: Rachid JORDAN 82240 Urinalysis Negative NEGATIVE [facility] Work Phone: Comment on above: Ordering Provider: Rachid JORDAN 96521 Urinalysis, Microscopicon RBC (Bld) [#/Vol] <1 0-5 [facility] Work Phone: Comment on above: Ordering Provider: Rachid JORDAN 92887 Urinalysis, Microscopic <1 0-5 [facility] Work Phone: Comment on above: Ordering Provider: Rachid JORDAN 15566 Urinalysis, Microscopic 1 {/HPF} [facility] Work Phone: Comment on above: Ordering Provider: Rachid JORDAN 76227 CRP, High Sensitivityon 10-12 CRP High sensitivity method [Mass/Vol] mg/L Abnormal [facility] Work Phone: Comment on above: hsCRP INTERPRETATION mg/L < 1.0 LOW RELATIVE RISK OF CVD 1.0-3.0 AVERAGE RELATIVE RISK OF CVD > 3.0 HIGH RELATIVE RISK OF CVD Source:KATIE TLeigh Gaona. et al. CIRCULATION 2003;[id number]. Complete Blood Count + [facility] 11-09-2019 Basophils (Bld) [#/Vol] 0.06 {x10E9/L} See Below [facility] Work Phone: Comment on above: Reference Range: 0.0 0 - 0.10 Basophils/100 WBC (Bld) 0.6 % 0.0 - 2.0 [facility] Work Phone: Eosinophils (Bld) [#/Vol] 0.20 {x10E9/L} See Below [facility] Work Phone: Comment on above: Reference Range: 0.0 0 - 0.40 Eosinophils/100 WBC (Bld) 2.0 % 0.0 - 6.0 [facility] Work Phone: Erythrocyte distribution width (RBC) [Ratio] 13.2 % See Below [facility] Work Phone: Comment on above: Reference Range: 11. 5 - 14.5 Hematocrit (Bld) [Volume fraction] 38.6 % See Below [facility] Work Phone: Comment on above: Reference Range: 36. 0 - 46.0 Hemoglobin (Bld) [Mass/Vol] 12.2 g/dL See Below [facility] Work Phone: Comment on above: Reference Range: 12. 0 - 16.0 Lymphocytes (Bld) [#/Vol] 2.47 {x10E9/L} See Below [facility] Work Phone: Comment on above: Reference Range: 0.8 0 - 3.00 Lymphocytes/100 WBC (Bld) 24.4 % See Below [facility] Work Phone: Comment on above: Reference Range: 13. 0 - 44.0 MCHC (RBC) [Mass/Vol] 31.6 g/dL below low threshold See Below [facility] Work Phone: Comment on above: Reference Range: 32. 0 - 36.0 MCV (RBC) [Entitic vol] 106 fL above high threshold 80 - 100 [facility] Work Phone: Monocytes (Bld) [#/Vol] 0.84 {x10E9/L} above high threshold See Below [facility] Work Phone: Comment on above: Reference Range: 0.0 5 - 0.80 Monocytes/100 WBC (Bld) 8.3 % 2.0 - 10.0 [facility] Work Phone: Neutrophils/100 WBC (Bld) 64.2 % See Below [facility] Work Phone: Comment on above: Reference Range: 40. 0 - 80.0 Platelets (Bld) [#/Vol] 321 {x10E9/L} 150 - 450 [facility] Work Phone: RBC (Bld) [#/Vol] 3.64 {x10E12/L} below low threshold See Below [facility] Work Phone: Comment on above: Reference Range: 4.0 0 - 5.20 WBC (Bld) [#/Vol] 0.0 {/100_WBC} 0.0-0.0 [facility] Work Phone: WBC (Bld) [#/Vol] 10.1 {x10E9/L} 4.4 - 11.3 [facility] Work Phone: Complete Blood Count + Differential 6.51 {x10E9/L} above high threshold See Below [facility] Work Phone: Comment on above: Reference Range: 1.6 0 - 5.50 Complete Blood Count + Differential 0.5 % 0.0 - 0.9 [facility] Work Phone: Comment on above: Immature Granulocyte Count (IG) includes promyelocytes, myelocytes and metamyelocytes but does not include bands. Percent differential counts (%) should be interpreted in the context of the absolute cell counts (cells/L). Metabolic Panelon 11-09-2019 ALP [Catalytic activity/Vol] 91 U/L 33 - 136 [facility] Work Phone: Anion gap [Moles/Vol] 15 mmol/L 10 - 20 [facility] Work Phone: Bilirubin [Mass/Vol] 0.5 mg/dL 0.0 - 1.2 [facility] Work Phone: Calcium [Mass/Vol] 9.0 mg/dL 8.6 - 10.6 [facility] Work Phone: Chloride [Moles/Vol] 99 mmol/L 98 - 107 [facility] Work Phone: CO2 [Moles/Vol] 27 mmol/L 21 - 32 [facility] Work Phone: Creatinine [Mass/Vol] 0.91 mg/dL See Below [facility] Work Phone: Comment on above: Reference Range: 0.5 0 - 1.05 Glucose [Mass/Vol] 115 mg/dL above high threshold 74 - 99 [facility] Work Phone: Potassium [Moles/Vol] 4.3 mmol/L 3.5 - 5.3 [facility] Work Phone: Protein [Mass/Vol] 7.5 g/dL 6.4 - 8.2 [facility] Work Phone: Sodium [Moles/Vol] 137 mmol/L 136 - 145 [facility] Work Phone: Urea nitrogen [Mass/Vol] 20 mg/dL 6 - 23 [facility] Work Phone: Otheron 11-09-2019 Albumin BCP dye [Mass/Vol] 3.8 g/dL 3.4 - 5.0 [facility] Work Phone: ALT With P-5'-P [Catalytic activity/Vol] 14 U/L 7 - 45 [facility] Work Phone: Comment on above: Patients treated wit h Sulfasalazine may generate falsely decreased results for ALT. AST With P-5'-P [Catalytic activity/Vol] 19 U/L 9 - 39 [facility] Work Phone: 71 {mL/min/1.73m2} >60 [facility] Work Phone: Comment on above: CALCULATIONS OF ALVARO MATED GFR ARE PERFORMED USING THE MDRD STUDY EQUATION FOR THE IDMS-TRACEABLE CREATININE METHODS. CLIN CHEM 2007;[id number] 59 {mL/min/1.73m2} Abnormal >60 [facility] Work Phone: Sedimentation Rate, Erythroc yteon 11-09-2019 ESR (Bld) [Velocity] 91 mm/h above high threshold 0 - 30 [facility] Work Phone: Cardiacon 09-06-2019 Natriuretic peptide B (Bld) [Mass/Vol] 167 pg/mL above high threshold 0 - 99 [facility] Work Phone: Comment on above: . <100 pg/mL - Heart failure -886 pg/mL - Intermediate probability of acute heart. [...] (Bld) [Volume fraction] 40.1 % See Below [facility] Work Phone: Comment on above: Reference Range: 36. 0 - 46.0 Hemoglobin (Bld) [Mass/Vol] 13.0 g/dL See Below [facility] Work Phone: Comment on above: Reference Range: 12. 0 - 16.0 MCV (RBC) [Entitic vol] 104 fL above high threshold 80 - 100 [facility] Work Phone: Platelets (Bld) [#/Vol] 225 {x10E9/L} 150 - 450 [facility] Work Phone: RBC (Bld) [#/Vol] 3.86 {x10E12/L} below low threshold See Below [facility] Work Phone: Comment on above: Reference Range: 4.0 0 - 5.20 WBC (Bld) [#/Vol] 6.4 {x10E9/L} 4.4 - 11.3 [facility] Work Phone: WBC (Bld) [#/Vol] 0.0 {/100_WBC} 0.0-0.0 [facility] Work Phone: Metabolic Panelon 09-06-2019 Anion gap [Moles/Vol] 22 mmol/L above high threshold 10 - 20 [facility] Work Phone: Calcium [Mass/Vol] 10.4 mg/dL 8.6 - 10.6 [facility] Work Phone: Chloride [Moles/Vol] 101 mmol/L 98 - 107 [facility] Work Phone: CO2 [Moles/Vol] 20 mmol/L below low threshold 21 - 32 [facility] Work Phone: Creatinine [Mass/Vol] 1.19 mg/dL above high threshold See Below [facility] Work Phone: Comment on above: Reference Range: 0.5 0 - 1.05 Glucose [Mass/Vol] 87 mg/dL 74 - 99 [facility] Work Phone: Potassium [Moles/Vol] 5.7 mmol/L above high threshold 3.5 - 5.3 [facility] Work Phone: Comment on above: MILD HEMOLYSIS DETEC MAURA. The result may be falsely elevated due tohemolysis or other interferents. Clinical correlation is recommended.Repeat testing may be considered. Sodium [Moles/Vol] 137 mmol/L 136 - 145 [facility] Work Phone: Urea nitrogen [Mass/Vol] 23 mg/dL 6 - 23 [facility] Work Phone: Otheron 09-06-2019 Erythrocyte distribution width (RBC) [Ratio] 13.6 % See Below [facility] Work Phone: Comment on above: Reference Range: 11. 5 - 14.5 MCHC (RBC) [Mass/Vol] 32.4 g/dL See Below [facility] Work Phone: Comment on above: Reference Range: 32. 0 - 36.0 43 {mL/min/1.73m2} Abnormal >60 [facility] Work Phone: 52 {mL/min/1.73m2} Abnormal >60 [facility] Work Phone: Comment on above: CALCULATIONS OF ALVARO MATED GFR ARE PERFORMED USING THE MDRD STUDY EQUATION FOR THE IDMS-TRACEABLE CREATININE METHODS. CLIN CHEM 2007;53:[id number] Thyroidon 09-06-2019 TSH Qn 2.22 {mIU/L} See Below [facility] Work Phone: Comment on above: Reference Range: 0.4 4 - 3.98 TSH testing is performed using different testing methodology at [facility] than at other [facility]. Direct result comparisons should only be made within the same method. Complete Blood Count + Stephaenasa fatima 12-16-2018 Basophils (Bld) [#/Vol] 0.06 {x10E9/L} See Below [facility] Work Phone: Comment on above: Reference Range: 0.0 0 - 0.10 Basophils/100 WBC (Bld) 0.8 % 0.0 - 2.0 [facility] Work Phone: Eosinophils (Bld) [#/Vol] 0.09 {x10E9/L} See Below [facility] Work Phone: Comment on above: Reference Range: 0.0 0 - 0.40 Eosinophils/100 WBC (Bld) 1.2 % 0.0 - 6.0 [facility] Work Phone: Erythrocyte distribution width (RBC) [Ratio] 13.1 % See Below [facility] Work Phone: Comment on above: Reference Range: 11. 5 - 14.5 Hematocrit (Bld) [Volume fraction] 35.7 % below low threshold See Below [facility] Work Phone: Comment on above: Reference Range: 36. 0 - 46.0 Hemoglobin (Bld) [Mass/Vol] 11.0 g/dL below low threshold See Below [facility] Work Phone: Comment on above: Reference Range: 12. 0 - 16.0 Lymphocytes (Bld) [#/Vol] 3.17 {x10E9/L} above high threshold See Below [facility] Work Phone: Comment on above: Reference Range: 0.8 0 - 3.00 Lymphocytes/100 WBC (Bld) 40.6 % See Below [facility] Work Phone: Comment on above: Reference Range: 13. 0 - 44.0 MCHC (RBC) [Mass/Vol] 30.8 g/dL below low threshold See Below [facility] Work Phone: Comment on above: Reference Range: 32. 0 - 36.0 MCV (RBC) [Entitic vol] 109 fL above high threshold 80 - 100 [facility] Work Phone: Monocytes (Bld) [#/Vol] 0.34 {x10E9/L} See Below [facility] Work Phone: Comment on above: Reference Range: 0.0 5 - 0.80 Monocytes/100 WBC (Bld) 4.4 % 2.0 - 10.0 [facility] Work Phone: Neutrophils (Bld) [#/Vol] 4.08 {x10E9/L} See Below [facility] Work Phone: Comment on above: Reference Range: 1.6 0 - 5.50 Neutrophils/100 WBC (Bld) 52.1 % See Below [facility] Work Phone: Comment on above: Reference Range: 40. 0 - 80.0 Platelets (Bld) [#/Vol] 362 {x10E9/L} 150 - 450 [facility] Work Phone: RBC (Bld) [#/Vol] 3.27 {x10E12/L} below low threshold See Below [facility] Work Phone: Comment on above: Reference Range: 4.0 0 - 5.20 WBC (Bld) [#/Vol] 0.0 {/100_WBC} 0.0-0.0 [facility] Work Phone: WBC (Bld) [#/Vol] 7.8 {x10E9/L} 4.4 - 11.3 [facility] Work Phone: Complete Blood Count + Differential 0.9 % 0.0 - 0.9 [facility] Work Phone: Comment on above: Percent differential counts (%) should be interpreted in the context of the absolute cell counts (cells/L). Complete Blood Count + Alvino fatima 12-09-2018 Basophils (Bld) [#/Vol] 0.04 {x10E9/L} See Below [facility] Work Phone: Comment on above: Reference Range: 0.0 0 - 0.10 Basophils/100 WBC (Bld) 0.5 % 0.0 - 2.0 [facility] Work Phone: Eosinophils (Bld) [#/Vol] 0.20 {x10E9/L} See Below [facility] Work Phone: Comment on above: Reference Range: 0.0 0 - 0.40 Eosinophils/100 WBC (Bld) 2.4 % 0.0 - 6.0 [facility] Work Phone: Erythrocyte distribution width (RBC) [Ratio] 13.3 % See Below [facility] Work Phone: Comment on above: Reference Range: 11. 5 - 14.5 Hematocrit (Bld) [Volume fraction] 32.1 % below low threshold See Below [facility] Work Phone: Comment on above: Reference Range: 36. 0 - 46.0 Hemoglobin (Bld) [Mass/Vol] 10.0 g/dL below low threshold See Below [facility] Work Phone: Comment on above: Reference Range: 12. 0 - 16.0 Lymphocytes (Bld) [#/Vol] 2.28 {x10E9/L} See Below [facility] Work Phone: Comment on above: Reference Range: 0.8 0 - 3.00 Lymphocytes/100 WBC (Bld) 26.8 % See Below [facility] Work Phone: Comment on above: Reference Range: 13. 0 - 44.0 MCHC (RBC) [Mass/Vol] 31.2 g/dL below low threshold See Below [facility] Work Phone: Comment on above: Reference Range: 32. 0 - 36.0 MCV (RBC) [Entitic vol] 107 fL above high threshold 80 - 100 [facility] Work Phone: Monocytes (Bld) [#/Vol] 0.63 {x10E9/L} See Below [facility] Work Phone: Comment on above: Reference Range: 0.0 5 - 0.80 Monocytes/100 WBC (Bld) 7.4 % 2.0 - 10.0 [facility] Work Phone: Neutrophils (Bld) [#/Vol] 5.30 {x10E9/L} See Below [facility] Work Phone: Comment on above: Reference Range: 1.6 0 - 5.50 Neutrophils/100 WBC (Bld) 62.3 % See Below [facility] Work Phone: Comment on above: Reference Range: 40. 0 - 80.0 Platelets (Bld) [#/Vol] 298 {x10E9/L} 150 - 450 [facility] Work Phone: RBC (Bld) [#/Vol] 2.99 {x10E12/L} below low threshold See Below [facility] Work Phone: Comment on above: Reference Range: 4.0 0 - 5.20 WBC (Bld) [#/Vol] 0.0 {/100_WBC} 0.0-0.0 [facility] Work Phone: WBC (Bld) [#/Vol] 8.5 {x10E9/L} 4.4 - 11.3 [facility] Work Phone: Complete Blood Count + Differential 0.6 % 0.0 - 0.9 [facility] Work Phone: Comment on above: Percent differential counts (%) should be interpreted in the context of the absolute cell counts (cells/L). Folate, Serumon 12-09-2018 Folate [Mass/Vol] ng/mL >5.0 [facility] Work Phone: Comment on above: Patients receiving m ore than 5 mg/day of biotin may have interference in test results. A sample should be taken no sooner than eight hours after previous dose. Contact the testing laboratory for additional information. Metabolic Panelon 12-09-2018 Anion gap [Moles/Vol] 14 mmol/L 10 - 20 [facility] Work Phone: Calcium [Mass/Vol] 10.0 mg/dL 8.6 - 10.6 [facility] Work Phone: Chloride [Moles/Vol] 102 mmol/L 98 - 107 [facility] Work Phone: CO2 [Moles/Vol] 23 mmol/L 21 - 32 [facility] Work Phone: Creatinine [Mass/Vol] 2.05 mg/dL above high threshold See Below [facility] Work Phone: Comment on above: Reference Range: 0.5 0 - 1.05 Glucose [Mass/Vol] 88 mg/dL 74 - 99 [facility] Work Phone: Potassium [Moles/Vol] 5.0 mmol/L 3.5 - 5.3 [facility] Work Phone: Sodium [Moles/Vol] 134 mmol/L below low threshold 136 - 145 [facility] Work Phone: Urea nitrogen [Mass/Vol] 61 mg/dL above high threshold 6 - 23 [facility] Work Phone: Otheron 12-09-2018 28 {mL/min/1.73m2} Abnormal >60 [facility] Work Phone: Comment on above: CALCULATIONS OF ALVARO MATED GFR ARE PERFORMED USING THE MDRD STUDY EQUATION FOR THE IDMS-TRACEABLE CREATININE METHODS. CLIN CHEM 2007;53:[id number] 23 {mL/min/1.73m2} Abnormal >60 [facility] Work Phone: TSH - Thyroid Stimulating Ho rmkellen, Serumon 12-09-2018 TSH Qn 2.35 {mIU/L} See Below [facility] Work Phone: Comment on above: Reference Range: 0.4 4 - 3.98 TSH testing is performed using different testing methodology at [facility] than at other [facility]. Direct result comparisons should only be made within the same method.. Patients receiving more than 5 mg/day of biotin may have interference in test results. A sample should be taken no sooner than eight hours after previous dose. Contact [phone] for additional information. Urinalysison 12-09-2018 Appearance (U) CLEAR CLEAR [facility] Work Phone: Color (U) YELLOW See Below [facility] Work Phone: Comment on above: Reference Range: STR AW,YELLOW Glucose Ql (U) Negative NEGATIVE [facility] Work Phone: Ketones Ql (U) Negative NEGATIVE [facility] Work Phone: Leukocyte esterase Test strip Ql (U) SMALL (1+) Abnormal NEGATIVE [facility] Work Phone: pH (U) 5.0 [pH] 5.0 - 8.0 [facility] Work Phone: Protein (U) [Mass/Vol] Negative NEGATIVE [facility] Work Phone: RBC (U) [#/Vol] Negative NEGATIVE [facility] Work Phone: Specific gravity (U) [Rel density] 1.012 See Below [facility] Work Phone: Comment on above: Reference Range: 1.0 05 - 1.035 Urinalysis Negative NEGATIVE [facility] Work Phone: Urinalysis <2.0 0.0 - 1.9 [facility] Work Phone: Urinalysis, Microscopicon RBC (Bld) [#/Vol] <1 0-5 [facility] Work Phone: Urinalysis, Microscopic 6 {/HPF} Abnormal 0-5 [facility] Work Phone: Urinalysis, Microscopic 1 {/HPF} [facility] Work Phone: Urinalysis, Microscopic 2+ [facility] Work Phone: Vitamin B12, Serumon 019 Cobalamin (Vitamin B12) [Mass/Vol] 709 pg/mL 211 - 911 [facility] Work Phone: Hematologyon 11-30-2018 Hematocrit (Bld) [Volume fraction] 34.2 % below low threshold See Below [facility] Work Phone: Comment on above: Reference Range: 36. 0 - 46.0 Hemoglobin (Bld) [Mass/Vol] 10.6 g/dL below low threshold See Below [facility] Work Phone: Comment on above: Reference Range: 12. 0 - 16.0 MCV (RBC) [Entitic vol] 107 fL above high threshold 80 - 100 [facility] Work Phone: Platelets (Bld) [#/Vol] 348 {x10E9/L} 150 - 450 [facility] Work Phone: RBC (Bld) [#/Vol] 3.19 {x10E12/L} below low threshold See Below [facility] Work Phone: Comment on above: Reference Range: 4.0 0 - 5.20 WBC (Bld) [#/Vol] 9.7 {x10E9/L} 4.4 - 11.3 [facility] Work Phone: WBC (Bld) [#/Vol] 0.0 {/100_WBC} 0.0-0.0 [facility] Work Phone: Metabolic Panelon 11-30-2018 ALP [Catalytic activity/Vol] 61 U/L 33 - 136 [facility] Work Phone: Anion gap [Moles/Vol] 15 mmol/L 10 - 20 [facility] Work Phone: Bilirubin [Mass/Vol] 0.4 mg/dL 0.0 - 1.2 [facility] Work Phone: Calcium [Mass/Vol] 10.5 mg/dL 8.6 - 10.6 [facility] Work Phone: Chloride [Moles/Vol] 105 mmol/L 98 - 107 [facility] Work Phone: CO2 [Moles/Vol] 25 mmol/L 21 - 32 [facility] Work Phone: Creatinine [Mass/Vol] 1.65 mg/dL above high threshold See Below [facility] Work Phone: Comment on above: Reference Range: 0.5 0 - 1.05 Glucose [Mass/Vol] 82 mg/dL 74 - 99 [facility] Work Phone: Potassium [Moles/Vol] 4.3 mmol/L 3.5 - 5.3 [facility] Work Phone: Protein [Mass/Vol] 7.0 g/dL 6.4 - 8.2 [facility] Work Phone: Sodium [Moles/Vol] 141 mmol/L 136 - 145 [facility] Work Phone: Urea nitrogen [Mass/Vol] 43 mg/dL above high threshold 6 - 23 [facility] Work Phone: Otheron 11-30-2018 Albumin BCP dye [Mass/Vol] 3.6 g/dL 3.4 - 5.0 [facility] Work Phone: ALT With P-5'-P [Catalytic activity/Vol] 10 U/L 7 - 45 [facility] Work Phone: Comment on above: Patients treated wit h Sulfasalazine may generate falsely decreased results for ALT. AST With P-5'-P [Catalytic activity/Vol] 14 U/L 9 - 39 [facility] Work Phone: Erythrocyte distribution width (RBC) [Ratio] 13.6 % See Below [facility] Work Phone: Comment on above: Reference Range: 11. 5 - 14.5 MCHC (RBC) [Mass/Vol] 31.0 g/dL below low threshold See Below [facility] Work Phone: Comment on above: Reference Range: 32. 0 - 36.0 36 {mL/min/1.73m2} Abnormal >60 [facility] Work Phone: Comment on above: CALCULATIONS OF ALVARO MATED GFR ARE PERFORMED USING THE MDRD STUDY EQUATION FOR THE IDMS-TRACEABLE CREATININE METHODS. CLIN CHEM 2007;53:766-72 30 {mL/min/1.73m2} Abnormal >60 [facility] Work Phone: Hematologyon 05-26-2018 Hematocrit (Bld) [Volume fraction] 38.6 % See Below [facility] Work Phone: Comment on above: Reference Range: 36. 0 - 46.0 Hemoglobin (Bld) [Mass/Vol] 12.0 g/dL See Below [facility] Work Phone: Comment on above: Reference Range: 12. 0 - 16.0 MCV (RBC) [Entitic vol] 108 fL above high threshold 80 - 100 [facility] Work Phone: Platelets (Bld) [#/Vol] 245 {x10E9/L} 150 - 450 [facility] Work Phone: RBC (Bld) [#/Vol] 3.56 {x10E12/L} below low threshold See Below [facility] Work Phone: Comment on above: Reference Range: 4.0 0 - 5.20 WBC (Bld) [#/Vol] 6.9 {x10E9/L} 4.4 - 11.3 [facility] Work Phone: WBC (Bld) [#/Vol] 0.1 {/100_WBC} 0.0-0.0 [facility] Work Phone: Lipid Panelon 05-26-2018 Cholesterol [Mass/Vol] 165 mg/dL 0 - 199 [facility] Work Phone: Comment [...] guidelines reference: NCEP ATPIII Guidelines, LAURA 2001, 258:9286-97. Venipuncture immediately after or during the administration of Metamizole may lead to falsely low results. Testing should be performed immediately prior to Metamizole dosing. Cholesterol in HDL [Mass/Vol] 44.1 mg/dL [facility] Work Phone: Comment on above: . AGE VERY LOW LOW N ORMAL HIGH 0-19 Y < 35 < 40 40-45 ---- 20- 24 Y ---- < 40 >45 ---- >24 Y ---- < 40 40-60 >60. Cholesterol in LDL [Mass/Vol] 82 mg/dL 0 - 99 [facility] Work Phone: Comment on above: . NEAR BORD AGE TORI RABLE OPTIMAL HIGH HIGH VERY HIGH 0-19 Y 0 - 109 --- 110-129 >/= 130 ---- 20-24 Y 0 - 119 --- 120-159 >/= 160 ---- >24 Y 0 - 99 100-129 130-159 160-189 >/=190. Cholesterol.total/Cho lesterol in HDL [Mass ratio] 3.7 {ratio} [facility] Work Phone: Comment on above: REF VALUESDESIRABLE < 3.4HIGH RISK > 5.0 Triglyceride [Mass/Vol] 194 mg/dL above high threshold 0 - 149 [facility] Work Phone: Comment on [...] Lipid Panel 39 mg/dL 0 - 40 [facility] Work Phone: Metabolic Panelon 05-26-2018 Anion gap [Moles/Vol] 15 mmol/L 10 - 20 [facility] Work Phone: Calcium [Mass/Vol] 10.0 mg/dL 8.6 - 10.6 [facility] Work Phone: Chloride [Moles/Vol] 105 mmol/L 98 - 107 [facility] Work Phone: CO2 [Moles/Vol] 26 mmol/L 21 - 32 [facility] Work Phone: Creatinine [Mass/Vol] 1.15 mg/dL above high threshold See Below [facility] Work Phone: Comment on above: Reference Range: 0.5 0 - 1.05 Glucose [Mass/Vol] 72 mg/dL below low threshold 74 - 99 [facility] Work Phone: Potassium [Moles/Vol] 4.8 mmol/L 3.5 - 5.3 [facility] Work Phone: Sodium [Moles/Vol] 141 mmol/L 136 - 145 [facility] Work Phone: Urea nitrogen [Mass/Vol] 29 mg/dL above high threshold 6 - 23 [facility] Work Phone: Otheron 05-26-2018 Erythrocyte distribution width (RBC) [Ratio] 13.6 % See Below [facility] Work Phone: Comment on above: Reference Range: 11. 5 - 14.5 MCHC (RBC) [Mass/Vol] 31.1 g/dL below low threshold See Below [facility] Work Phone: Comment on above: Reference Range: 32. 0 - 36.0 54 {mL/min/1.73m2} Abnormal >60 [facility] Work Phone: Comment on above: CALCULATIONS OF ALVARO MATED GFR ARE PERFORMED USING THE MDRD STUDY EQUATION FOR THE IDMS-TRACEABLE CREATININE METHODS. CLIN CHEM 2007;53:766-72 45 {mL/min/1.73m2} Abnormal >60 [facility] Work Phone: Vitamin D 25-Hydroxyon 05-26 Calcidiol [Mass/Vol] 38 ng/mL [facility] Work Phone: Comment on above: .DEFICIENCY: < [...] including severe height loss of T8 and Q47akqtcynkh body and approximately 50% height loss of [...] visualizedabdominal aorta and the iliac arteries. Normal [facility] CBC AND DIFFERENTIALon 11-06 % AUTOMATED IMMATURE GRAN 0.3 % Normal 0.0 - 0.9 [facility] Comment on above: Result Comment: Perc ent differential counts (%) should be interpreted in the context of the absolute cell counts (cells/L). Performed By: #### V TDOH ####[facility] [place] [address] % NEUTROPHIL 64.8 % Normal 40.0 - 80.0 [facility] Comment on above: Performed By: #### V TDOH ####[facility] [place] [address] Basophils/100 WBC Auto (Bld) 0.04 x10E9/L Normal 0.00 - 0.10 [facility] Comment on above: Performed By: #### V TDOH ####[facility] [place] [address] Basophils/100 WBC Auto (Bld) 0.7 % Normal 0.0 - 2.0 [facility] Comment on above: Performed By: #### V TDOH ####[facility] [place] [address] Eosinophils Auto #/vol (Bld) 0.06 10*3/uL Normal 0.00 - 0.40 [facility] Comment on above: Performed By: #### V TDOH ####[facility] [place] [address] Eosinophils/100 WBC Auto (Bld) 1.0 % Normal 0.0 - 6.0 [facility] Comment on above: Performed By: #### V TDOH ####[facility] [place] [address] Erythrocyte distribution width Auto Ratio (RBC) 16.1 % High 11.5 - 14.5 [facility] Comment on above: Performed By: #### V TDOH ####[facility] [place] [address] Hematocrit Auto Volume Fraction (Bld) 39.0 % Normal 36.0 - 46.0 [facility] Comment on above: Performed By: #### V TDOH ####[facility] [place] [address] Hemoglobin mass conc (Bld) 12.0 g/dL Normal 12.0 - 16.0 [facility] Comment on above: Performed By: #### V TDOH ####[facility] [place] [address] Lymphocytes Auto #/vol (Bld) 1.59 10*3/uL Normal 0.80 - 3.00 [facility] Comment on above: Performed By: #### V TDOH ####[facility] [place] [address] Lymphocytes/100 WBC Auto (Bld) 27.1 % Normal 13.0 - 44.0 [facility] Comment on above: Performed By: #### V TDOH ####[facility] [place] [address] MCHC Auto mass conc (RBC) 30.8 g/dL Low 32.0 - 36.0 [facility] Comment on above: Performed By: #### V TDOH ####[facility] [place] [address] MCV Auto Entitic volume (RBC) 101 fL High 80 - 100 [facility] Comment on above: Performed By: #### V TDOH ####[facility] [place] [address] Monocytes Auto #/vol (Bld) 0.36 10*3/uL Normal 0.05 - 0.80 [facility] Comment on above: Performed By: #### V TDOH ####[facility] [place] [address] Monocytes/100 WBC Auto (Bld) 6.1 % Normal 2.0 - 10.0 [facility] Comment on above: Performed By: #### V TDOH ####[facility] [place] [address] Neutrophils Auto #/vol (Bld) 3.79 10*3/uL Normal 1.60 - 5.50 [facility] Comment on above: Performed By: #### V TDOH ####[facility] [place] [address] Platelets Auto #/vol (Bld) 300 10*3/uL Normal 150 - 450 [facility] Comment on above: Performed By: #### V TDOH ####[facility] [place] [address] RBC Auto #/vol (Bld) 3.88 x10E12/L Low 4.00 - 5.20 [facility] Comment on above: Performed By: #### V TDOH ####[facility] [place] [address] WBC Auto #/vol (Bld) 5.9 10*3/uL Normal 4.4 - 11.3 [facility] Comment on above: Performed By: #### V TDOH ####[facility] [place] [address] COMPREHENSIVE PANELon 2017 Albumin mass conc 3.6 g/dL Normal 3.4 - 5.0 [facility] Comment on above: Performed By: #### V TDOH ####[facility] [place] [address] ALP enzyme act/vol 56 U/L Normal 33 - 136 [facility] Comment on above: Performed By: #### V TDOH ####[facility] [place] [address] ALT enzyme act/vol 13 U/L Normal 7 - 45 [facility] Comment on above: Result Comment: Daniel ents treated with Sulfasalazine may generate falsely decreased results for ALT. Performed By: #### V TDOH ####[facility] [place] [address] Anion gap 3 molar conc 15 mmol/L Normal 10 - 20 [facility] Comment on above: Performed By: #### V TDOH ####[facility] [place] [address] AST enzyme act/vol 19 U/L Normal 9 - 39 [facility] Comment on above: Performed By: #### V TDOH ####[facility] [place] [address] Bilirubin mass conc 0.3 mg/dL Normal 0.0 - 1.2 [facility] Comment on above: Performed By: #### V TDOH ####[facility] [place] [address] Calcium mass conc 9.5 mg/dL Normal 8.6 - 10.3 [facility] Comment on above: Performed By: #### V TDOH ####[facility] [place] [address] Chloride molar conc 105 mmol/L Normal 98 - 107 [facility] Comment on above: Performed By: #### V TDOH ####[facility] [place] [address] Creatinine mass conc 1.06 mg/dL High 0.50 - 1.05 [facility] Comment on above: Performed By: #### V TDOH ####[facility] [place] [address] GFR- AM. 61 mL/min/1.73m2 Normal >60 [facility] Comment on above: Result Comment: CALC ULATIONS OF ESTIMATED GFR ARE PERFORMED USING THE MDRD STUDY EQUATION FOR THE IDMS-TRACEABLE CREATININE METHODS. CLIN CHEM 2007;53:766-72 Performed By: #### V TDOH ####[facility] [place] [address] GFR-NON AM. 50 mL/min/1.73m2 Abnormal >60 [facility] Comment on above: Performed By: #### V TDOH ####[facility] [place] [address] Glucose mass conc 109 mg/dL High 74 - 99 [facility] Comment on above: Performed By: #### V TDOH ####[facility] [place] [address] HCO3 molar conc (Bld) 24 mmol/L Normal 21 - 32 [facility] Comment on above: Performed By: #### V TDOH ####[facility] [place] [address] Potassium molar conc 4.5 mmol/L Normal 3.5 - 5.3 [facility] Comment on above: Performed By: #### V TDOH ####[facility] [place] [address] Protein mass conc 7.3 g/dL Normal 6.4 - 8.2 [facility] Comment on above: Performed By: #### V TDOH ####[facility] [place] [address] Sodium molar conc 139 mmol/L Normal 136 - 145 [facility] Comment on above: Performed By: #### V TDOH ####[facility] [place] [address] Urea nitrogen mass conc 19 mg/dL Normal 6 - 23 [facility] Comment on above: Performed By: #### V TDOH ####[facility] [place] [address] BASIC METABOLIC PANELon 09-0 Anion gap 3 molar conc 9 mmol/L Low 10 - 20 [facility] Comment on above: Performed By: #### V TDOH ####[facility] [place] [address] Calcium mass conc 8.4 mg/dL Low 8.6 - 10.3 [facility] Comment on above: Performed By: #### V TDOH ####[facility] [place] [address] Chloride molar conc 110 mmol/L High 98 - 107 [facility] Comment on above: Performed By: #### V TDOH ####[facility] [place] [address] Creatinine mass conc 0.61 mg/dL Normal 0.50 - 1.05 [facility] Comment on above: Performed By: #### V TDOH ####[facility] [place] [address] GFR- AM. >60 Normal >60 [facility] Comment on above: Result Comment: CALC ULATIONS OF ESTIMATED GFR ARE PERFORMED USING THE MDRD STUDY EQUATION FOR THE IDMS-TRACEABLE CREATININE METHODS. CLIN CHEM 2007;53:766-72 Performed By: #### V TDOH ####[facility] [place] [address] GFR-NON AM. >60 Normal >60 [facility] Comment on above: Performed By: #### V TDOH ####[facility] [place] [address] Glucose mass conc 103 mg/dL High 74 - 99 [facility] Comment on above: Performed By: #### V TDOH ####[facility] [place] [address] HCO3 molar conc (Bld) 26 mmol/L Normal 21 - 32 [facility] Comment on above: Performed By: #### V TDOH ####[facility] [place] [address] Potassium molar conc 3.9 mmol/L Normal 3.5 - 5.3 [facility] Comment on above: Performed By: #### V TDOH ####[facility] [place] [address] Sodium molar conc 141 mmol/L Normal 136 - 145 [facility] Comment on above: Performed By: #### V TDOH ####[facility] [place] [address] Urea nitrogen mass conc 10 mg/dL Normal 6 - 23 [facility] Comment on above: Performed By: #### V TDOH ####[facility] [place] [address] CBCon 10-13-2017 Erythrocyte distribution width Auto Ratio (RBC) 16.1 % High 11.5 - 14.5 [facility] Comment on above: Performed By: #### V TDOH ####[facility] [place] [address] Hematocrit Auto Volume Fraction (Bld) 32.7 % Low 36.0 - 46.0 [facility] Comment on above: Performed By: #### V TDOH ####[facility] [place] [address] Hemoglobin mass conc (Bld) 10.3 g/dL Low 12.0 - 16.0 [facility] Comment on above: Performed By: #### V TDOH ####[facility] [place] [address] MCHC Auto mass conc (RBC) 31.5 g/dL Low 32.0 - 36.0 [facility] Comment on above: Performed By: #### V TDOH ####[facility] [place] [address] MCV Auto Entitic volume (RBC) 98 fL Normal 80 - 100 [facility] Comment on above: Performed By: #### V TDOH ####[facility] [place] [address] Platelets Auto #/vol (Bld) 238 10*3/uL Normal 150 - 450 [facility] Comment on above: Performed By: #### V TDOH ####[facility] [place] [address] RBC Auto #/vol (Bld) 3.33 x10E12/L Low 4.00 - 5.20 [facility] Comment on above: Performed By: #### V TDOH ####[facility] [place] [address] WBC Auto #/vol (Bld) 7.3 10*3/uL Normal 4.4 - 11.3 [facility] Comment on above: Performed By: #### V TDOH ####[facility] [place] [address] Daily Progress Note-Surgery ( Medical Student Note [...] an uneventful night. Objective Data: Objective Information:T [id number]/729 8%Date/Time10/13 6:5210/13 6:5210/13 6:5210/13 6:5210/13 6:52Range(36.8C - [...] Injectable Flush: 10 mL IntraVenous Flush Every 61Dimbv49. Vancomycin Oral Liquid: 250 mg Oral Every 6 Hours PRN Medications ---- 1. Acetaminophen: 650 mg Oral Every 4 Hours2. diphenhydrAMINE 2% Topical: 1 application(s) Topical 4 Times a Day3. Heparin Flush 10 unit/ mL PF Injectable: 5 mL IntraVenous Flush Every 29Smxxc9. Heparin Flush 10 unit/ mL PF Injectable [...] 16.1 H Basic Metabolic Panel Trending View [id number] 05:30:00 12-Oct-2017 19:27:00Glucose, Eiini710 H 148 KNI461 141K3.9 4.4JS849 H 112 HBicarbonate, Serum26 22Anion Gap, Serum9 L 00IBO75 54KZOAX4.61 0.64GFR-Non >60 >60GFR->60 >60Calcium, Serum8.4 L 8.5 [...] by mouth vanco needed Electronic Signatures:Lula Merrill ([facility]) (Signed 13-Oct-2017 10:19)Authored: Service, Subjective Data, Objective Data, Assessment and Plan,Signature/Cosignature/A ttestationManny Arana) (Signed 13-Oct-2017 17:09)Authored: Signature/Cosignature/Attest ationCo-Signer: Service, Subjective Data, Objective Data, Assessment and Plan,Signature/Cosignature/A ttestation Last Updated: 13-Oct-2017 17:09 by Manny Arana) [facility] Discharge Planning Noteon Discharge Planning Note Discharge Needs Assessment:? Discharge Planning Assessment [id number]? Discharge Planning Assessment Completed bySom Chaudhari RNCC [...] call from son- Ganga: [place]. He states that his parents arehaving a difficult time at home by themselves due to worsening confusion inboth of them. He states his mother has been the dry cell assembly supervisor of his father whohas had CVA's [...] moving into a facility near him in [facility] that he can visit them [...] dementias progress. Above was relayed to Som Jones.RN/Editing Intern who is working with this pt today. BRANDON Bonner 10/13/17 0900 Met with Brayan at bedside and Brayan chose [facility] for therapy, Referral sent and patient will be discharged to [facility] today, Discharge orders sent via [employer]. Som Chaudhari [facility] Electronic Signatures:Som Chaudhari (CLIN COOR) (Signed 13-Oct-2017 16:32)Authored: Discharge Planning Elaina Dacosta (SENIOR CORE JAVA DEVELOPER) (Signed 13-Oct-2017 12:46)Authored: Discharge Planning Note Last Updated: 13-Oct-2017 16:32 by Som Chaudhari (CLIN COOR) References:1. Data Referenced From 5. Education 10/09/2017 09:02 PM2. Data Referenced From Admission Risk Screen - Adult 10/09/2017 09:02 PM Normal [facility] Discharge Aepugtm7rv 018 Protein mass conc Discharge Orders:Ant icipated Discharge Date:? Anticipated Discharge [id number] Problem List: Admitting Dx:? Clostridium difficile colitis: Catalog Name: Enterocolitis due toClostridium difficile, not specified as recurrent Additional Dx:? 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 Hypokalemia: Catalog Name: Hypokalemia Significant Events:CABG (2 vessel): Past Surgical History, 22-Hcc-4130Wtkmenv Catheterization: Past Surgical Historycataract: Past Surgical History, bilateral with lens implantappendectomy: Past Surgical History, 27 years agocomplete hysterectomy: Past Surgical History, 27 years agobilat knee replacement: Past Surgical HistoryDNRCCA 10/09/2017: Past Medical HistoryCongestive Heart Failure (CHF): Past Medical HistoryChronic anemia: Past Medical HistoryVenous thromboembolism: Past Medical HistorySepsis: Past Medical HistoryCoronary atherosclerosis: Past Medical HistoryNon ST elevation NE: Past Medical History, 38-Alh-9763BXR: Past Medical HistoryGERD: Past Medical HistoryUTI: Past Medical Historyumbilical hernia: Past Medical Historydiverticulitis: Past Medical Historyosteoporosis: Past Medical Historyanxiety: Past Medical Historydepression: Past Medical Historypost shingles neuropathy: Past Medical Historyhypercholesterolemia: Past Medical Historyherniated disc lumbar area: Past Medical Historyarthritis: Past Medical HistoryHypertension (HTN): Past Medical Historygi bleed: Past Medical Historymitral valve regurgitation: Past Medical Historycolitis: Past Medical HistoryFamily spokesperson: Other, CARLOS [phone] BROTHERNANCY VELOZ [phone] Use: OtherClostridium difficile toxin (C-Diff): Infection Control, 21-Lva-5223Lscmgbfdovx difficile toxin (C-Diff): Infection Control, 50-Nsq-1411Lwwcyjgntnr difficile toxin (C-Diff): Infection Control, 27-Aug-2012, camewith ( [facility])Methicillin-Resistant Staph Aureus (MRSA): Infection Control, Mar 2012, sputum.Influenza- Influenza Virus: Immunizations, 83-Sod-8125JIC- Pneumococcal conjugate vaccine: Immunizations, 12-Oct-2017.Pneumonia- Pneumococcal polysaccharide vaccine-adult: Immunizations.Influenza- Influenza Virus: Immunizations, 76-Qtt-0188Iuvrxhm Information: Contacts, dontae Schuler [phone] Hospital Providers:Provider RoleProvider Name? Clif Morataya? Manny Mcbride? Benjy Pruitt? Aria Schmitt DNAR:? DNAR StatusDNAR Activity:activity as tolerated. Diet:? Dietlow fiber? Diet Consistency/Texturesoft Additive/Supplement 1:Supplement. Boost Plus 1 by mouth 2 times a day. Hospital Course (Home Care/Gold Form):Hospital Course:? Hospital Course: include significant abnormal lab hrxogj32 year old female from home with who stated that she has had abdominalpain, diarrhea, not eating, generalized weakness for the past one week or sobut worse since Thursday. Denied f/c. Has some urinary discomfort. PMHxsignificant for failure to thrive, gastrocutaneous fistula, constipation,ileus, small bowel obstruction, transient ischemic colitis, anemia, proteincalorie malnutrition, hypokalemia, hypomagnesemia and [facility]. Patient has had multiple abdominalsurgeries in the past. She was recently discharged from the hospital on09/01/17 and then a week later for management of small bowel obstruction andAMS. Treatment course in the ED included starting IV fluids, Cipro, Flagyl and oralVanco.stool for c diff +.Sodium 135, K 4.1, Bun/Creat 27/1.73Access started by PICC RN SURGICAL PCU in ED Hospital course: Patient was [facility] Med[facility]Surg for Acute colitis with [...] days):? Chemotherapyno? Dialysisno? IV Medicationyes? Last Date [id number]? Oxygen Therapyno? Transfusionsno? Feverno? Radiationno? Ventilatorno? Tracheostomyno? Suctioningno Nutrition:? Nutritional Statusfeeds self Sensory/Comfort:? Visionadequate? Hearingadequate? Speechaphasia? Painyes? Pain Typechronic arthritic? Pain Locationknees, back? Whenvaries? Pain Relieved Byacetaminophen Elimination:? Bladdercontinent? Bowelcontinent? Last Bowel [id number]-3692? Toiletingtoilet Safety:? Siderailsyes? Siderails Number/Reason2 for saftey? Restraintsno? Sitterno? Fall Riskprevious falls, weakness Medication/Hygiene/Mobility: ? Medication Administrationtotal dependent? Bathingassist? Dressingassist? Bed Mobilityassist? Wheelchairassist? Transfersassist? Ambulationassist Gold Form - Rn Admit Summary:Referral Information:? Referral [facility]? Referring Facility [facility]? Contact Sebastian Chaudhari [facility]? Contact Phone [phone] Mental & Functional Status:? Capacity For Independent Living/Commercial Development Manager Planreturn home? Mental/Functional Commentalert and oriented Electronic Signatures:Aria Gandhi) (Signed 13-Oct-2017 14:43)Authored: Provider FINAL REVIEW of OrdersSom Chaudhari (CLIN COOR) (Signed 13-Oct-2017 10:27)Authored: Gold Form - Rn Admit SummaryVanessa Cortes (RN PRN) (Signed 13-Oct-2017 16:25)Authored: Mikal Form - Nursing SummaryAlex Tillman (TOE FORMER STITCHDOWNS-CONDITIONING MACHINE OPERATOR) (Signed 13-Oct-2017 14:39)Authored: Discharge Orders, Hospital Course (Home Care/Gold Form), ProviderFINAL REVIEW of Orders Last Updated: 13-Oct-2017 16:25 by Vanessa Cortes (RN PRN) Normal [facility] MAGNESIUMon 10-13-2017 Magnesium mass conc 1.87 mg/dL Normal 1.60 - 2.40 [facility] Comment on above: Performed By: #### V TDOH ####[facility] [place] [address] BASIC METABOLIC PANELon Anion gap 3 molar conc 11 mmol/L Normal 10 - 20 [facility] Comment on above: Performed By: #### V TDOH ####[facility] [place] [address] Calcium mass conc 8.5 mg/dL Low 8.6 - 10.3 [facility] Comment on above: Performed By: #### V TDOH ####[facility] [place] [address] Chloride molar conc 112 mmol/L High 98 - 107 [facility] Comment on above: Performed By: #### V TDOH ####[facility] [place] [address] Creatinine mass conc 0.64 mg/dL Normal 0.50 - 1.05 [facility] Comment on above: Performed By: #### V TDOH ####[facility] [place] [address] GFR- AM. >60 Normal >60 [facility] Comment on above: Result Comment: CALC ULATIONS OF ESTIMATED GFR ARE PERFORMED USING THE MDRD STUDY EQUATION FOR THE IDMS-TRACEABLE CREATININE METHODS. CLIN CHEM 2007;53:766-72 Performed By: #### V TDOH ####[facility] [place] [address] GFR-NON AM. >60 Normal >60 [facility] Comment on above: Performed By: #### V TDOH ####[facility] [place] [address] Glucose mass conc 148 mg/dL High 74 - 99 [facility] Comment on above: Performed By: #### V TDOH ####[facility] [place] [address] HCO3 molar conc (Bld) 22 mmol/L Normal 21 - 32 [facility] Comment on above: Performed By: #### V TDOH ####[facility] [place] [address] Potassium molar conc 4.4 mmol/L Normal 3.5 - 5.3 [facility] Comment on above: Performed By: #### V TDOH ####[facility] [place] [address] Sodium molar conc 141 mmol/L Normal 136 - 145 [facility] Comment on above: Performed By: #### V TDOH ####[facility] [place] [address] Urea nitrogen mass conc 11 mg/dL Normal 6 - 23 [facility] Comment on above: Performed By: #### V TDOH ####[facility] [place] [address] Daily Progress Note-Medicine on 10-12-2017 Protein mass [...] problems with insomnia Objective Data: Objective Information:T [id number]/719 5%Date/Time10/12 14: 14: 14: 14: 14:20Range(36.9C - [...] Injectable Flush: 10 mL IntraVenous Flush Every 41Ifuvh45. Vancomycin Oral Liquid: 250 mg Oral Every 6 Hours PRN Medications ---- 1. Acetaminophen: 650 mg Oral Every 4 Hours2. diphenhydrAMINE 2% Topical: 1 application(s) Topical 4 Times a Day3. Heparin Flush 10 unit/ mL PF Injectable: 5 mL IntraVenous Flush Every 29Ikgkl2. Heparin Flush 10 unit/ mL PF Injectable [...] PICC line inserted in ED by PICC CONDITIONING MACHINE OPERATOR Anxiety, depression- continue Wellbutrin- continue Sertraline Insomnia- hold trazadone- held ambien - pt confused overnight GERD- continue pantoprazole Neuropathy pain- hold Tizandine- continue Neurotin for now Urinary frequency- continue oxybutynin Impaired Functional Mobility- PT/OT evaluation, likely snf DVT pps- Ambulation, Lovenox held due to anemia Disposition: [facility] med/surg. Snf soon. Electronic Signatures:Alex Mayer (TOE FORMER STITCHDOWNS-CONDITIONING MACHINE OPERATOR) (Signed 12-Oct-2017 16:31)Authored: Service, Subjective Data, Objective Data, Assessment and Plan,Signature/Cosignature/A ttestation Last Updated: 12-Oct-2017 16:31 by Alex Mayer (TOE FORMER STITCHDOWNS-CONDITIONING MACHINE OPERATOR) Normal [facility] HIP, UNILATERAL W/PELVIS WHE N [...] Electronically signed by: HOMER BELLAMY MD Normal [facility] BASIC METABOLIC PANELon 09-0 Anion gap 3 molar conc 8 mmol/L Low 10 - 20 [facility] Comment on above: Performed By: #### L IPID ####[id number] [place] [address] Calcium mass conc 8.1 mg/dL Low 8.6 - 10.3 [facility] Comment on above: Performed By: #### L IPID ####[id number] [place] [address] Chloride molar conc 108 mmol/L High 98 - 107 [facility] Comment on above: Performed By: #### L IPID ####[id number] [place] [address] Creatinine mass conc 0.71 mg/dL Normal 0.50 - 1.05 [facility] Comment on above: Performed By: #### L IPID ####[id number] [place] [address] GFR- AM. >60 Normal >60 [facility] Comment on above: Result Comment: CALC ULATIONS OF ESTIMATED GFR ARE PERFORMED USING THE MDRD STUDY EQUATION FOR THE IDMS-TRACEABLE CREATININE METHODS. CLIN CHEM 2007;53:766-72 Performed By: #### L IPID ####[id number] [place] [address] GFR-NON AM. >60 Normal >60 [facility] Comment on above: Performed By: #### L IPID ####[facility] [place] [address] Glucose mass conc 106 mg/dL High 74 - 99 [facility] Comment on above: Performed By: #### L IPID ####[facility] [place] [address] HCO3 molar conc (Bld) 26 mmol/L Normal 21 - 32 [facility] Comment on above: Performed By: #### L IPID ####[address] [address] Potassium molar conc 3.3 mmol/L Low 3.5 - 5.3 [facility] Comment on above: Performed By: #### L IPID ####[address] [address] Sodium molar conc 139 mmol/L Normal 136 - 145 [facility] Comment on above: Performed By: #### L IPID ####[address] [address] Urea nitrogen mass conc 7 mg/dL Normal 6 - 23 [facility] Comment on above: Performed By: #### L IPID ####[id number] [place] [address] CBCon 10-11-2017 Erythrocyte distribution width Auto Ratio (RBC) 16.0 % High 11.5 - 14.5 [facility] Comment on above: Performed By: #### L IPID ####[id number] [place] [address] Hematocrit Auto Volume Fraction (Bld) 31.4 % Low 36.0 - 46.0 [facility] Comment on above: Performed By: #### L IPID ####[facility] [place] [address] Hemoglobin mass conc (Bld) 9.9 g/dL Low 12.0 - 16.0 [facility] Comment on above: Performed By: #### L IPID ####[address] [address] MCHC Auto mass conc (RBC) 31.5 g/dL Low 32.0 - 36.0 [facility] Comment on above: Performed By: #### L IPID ####[facility] [place] [address] MCV Auto Entitic volume (RBC) 97 fL Normal 80 - 100 [facility] Comment on above: Performed By: #### L IPID ####[facility] [place] [address] Platelets Auto #/vol (Bld) 253 10*3/uL Normal 150 - 450 [facility] Comment on above: Performed By: #### L IPID ####[facility] [place] [address] RBC Auto #/vol (Bld) 3.23 x10E12/L Low 4.00 - 5.20 [facility] Comment on above: Performed By: #### L IPID ####[facility] [place] [address] WBC Auto #/vol (Bld) 5.5 10*3/uL Normal 4.4 - 11.3 [facility] Comment on above: Performed By: #### L IPID ####[id number] [place] [address] Daily Progress Note-Medicine on 10-11-2017 Protein mass conc Service: Medicine Rick bjective Data:KATHERINE JUDGE is a 82 year old Female who is Hospital Day # 3. Patientassessed at bedside; sitting up in a chair. slightly confused today; complainedof not sleeping. She is aware she is seeing things that are not there. Objective Data: Objective Information:T [id number]/949 9%Date/Time10/11 6:2 6: 6:2892 6:289 6:28Range(36.4C - [...] Injectable Flush: 10 mL IntraVenous Flush Every 62Jnzdt73. Vancomycin Oral Liquid: 250 mg Oral Every 6 Hours PRN Medications ---- 1. Acetaminophen: 650 mg Oral Every 4 Hours2. diphenhydrAMINE 2% Topical: 1 application(s) Topical 4 Times a Day3. Heparin Flush 10 unit/ mL PF Injectable: 5 mL IntraVenous Flush Every 13Rdgxf4. Heparin Flush 10 unit/ mL PF Injectable [...] Count 3.23 LHGB 9.[address] 31.5 LPLT 253RDW-CV 16.0 H Basic Metabolic [...] PICC line inserted in ED by PICC CONDITIONING MACHINE OPERATOR Anxiety, depression- continue Wellbutrin- continue Sertraline Insomnia- hold trazadone- started ambien GERD- continue pantoprazole Neuropathy pain- hold Tizandine- continue Neurotin for now Urinary frequency- continue oxybutynin Impaired Funcitonal Mobility- PT/OT evaluation pending DVT pps- Ambulation, Lovenox held due to anemia Disposition: [facility] med/surg. Home soon. Electronic Signatures:Alex Tillman (TOE FORMER STITCHDOWNS-CONDITIONING MACHINE OPERATOR) (Signed 11-Oct-2017 18:54)Authored: Service, Subjective Data, Objective Data, Assessment and Plan,Signature/Cosignature/A ttestation Last Updated: 11-Oct-2017 18:54 by Alex Tillman (TOE FORMER STITCHDOWNS-CONDITIONING MACHINE OPERATOR) Normal [facility] Daily Progress Note-Samarao n 10-11-2017 Protein mass conc Service: Surgery Sub jective Data:KATHERINE JUDGE is a 82 year old Female who is Hospital Day # 3. HALLUCINATING / NO PAIN / LESS DIARRHEA. Objective Data: Objective Information:T [id number]/949 9%Date/Time10/11 6:289/2 6:2892 6:289/2 6:289/2 6:28Range(36.4C - [...] Updated: 11-Oct-2017 08:30 by Manny Arana) Normal [facility] MAGNESIUMon 10-11-2017 Magnesium mass conc 1.54 mg/dL Low 1.60 - 2.40 [facility] Comment on above: Performed By: #### V TDOH ####[facility] [place] [address] BASIC METABOLIC PANELon Anion gap 3 molar conc 10 mmol/L Normal 10 - 20 [facility] Comment on above: Performed By: #### L IPID ####[facility] [place] [address] Calcium mass conc 8.2 mg/dL Low 8.6 - 10.3 [facility] Comment on above: Performed By: #### L IPID ####[facility] [place] [address] Chloride molar conc 104 mmol/L Normal 98 - 107 [facility] Comment on above: Performed By: #### L IPID ####[facility] [place] [address] Creatinine mass conc 1.14 mg/dL High 0.50 - 1.05 [facility] Comment on above: Performed By: #### L IPID ####[facility] [place] [address] GFR- AM. 56 mL/min/1.73m2 Abnormal >60 [facility] Comment on above: Result Comment: CALC ULATIONS OF ESTIMATED GFR ARE PERFORMED USING THE MDRD STUDY EQUATION FOR THE IDMS-TRACEABLE CREATININE METHODS. CLIN CHEM 2007;53:766-72 Performed By: #### L IPID ####[address] [address] GFR-NON AM. 46 mL/min/1.73m2 Abnormal >60 [facility] Comment on above: Performed By: #### L IPID ####[address] [address] Glucose mass conc 102 mg/dL High 74 - 99 [facility] Comment on above: Performed By: #### L IPID ####[address] [address] HCO3 molar conc (Bld) 27 mmol/L Normal 21 - 32 [facility] Comment on above: Performed By: #### L IPID ####[address] [address] Potassium molar conc 3.5 mmol/L Normal 3.5 - 5.3 [facility] Comment on above: Performed By: #### L IPID ####[address] [address] Sodium molar conc 137 mmol/L Normal 136 - 145 [facility] Comment on above: Performed By: #### L IPID ####[address] [address] Urea nitrogen mass conc 18 mg/dL Normal 6 - 23 [facility] Comment on above: Performed By: #### L IPID ####[address] [address] CBC AND DIFFERENTIALon 10-10 % AUTOMATED IMMATURE GRAN 0.3 % Normal 0.0 - 0.9 [facility] Comment on above: Result Comment: Perc ent differential counts (%) should be interpreted in the context of the absolute cell counts (cells/L). Performed By: #### L IPID ####[address] [address] % NEUTROPHIL 69.7 % Normal 40.0 - 80.0 [facility] Comment on above: Performed By: #### L IPID ####[id number] [place] [address] Basophils/100 WBC Auto (Bld) 0.04 x10E9/L Normal 0.00 - 0.10 [facility] Comment on above: Performed By: #### L IPID ####[id number] [place] [address] Basophils/100 WBC Auto (Bld) 0.5 % Normal 0.0 - 2.0 [facility] Comment on above: Performed By: #### L IPID ####[address] [address] Eosinophils Auto #/vol (Bld) 0.15 10*3/uL Normal 0.00 - 0.40 [facility] Comment on above: Performed By: #### L IPID ####[address] [address] Eosinophils/100 WBC Auto (Bld) 2.0 % Normal 0.0 - 6.0 [facility] Comment on above: Performed By: #### L IPID ####[address] [address] Erythrocyte distribution width Auto Ratio (RBC) 15.9 % High 11.5 - 14.5 [facility] Comment on above: Performed By: #### L IPID ####[address] [address] Hematocrit Auto Volume Fraction (Bld) 29.3 % Low 36.0 - 46.0 [facility] Comment on above: Performed By: #### L IPID ####[address] [address] Hemoglobin mass conc (Bld) 9.4 g/dL Low 12.0 - 16.0 [facility] Comment on above: Performed By: #### L IPID ####[address] [address] Lymphocytes Auto #/vol (Bld) 1.63 10*3/uL Normal 0.80 - 3.00 [facility] Comment on above: Performed By: #### L IPID ####[address] [address] Lymphocytes/100 WBC Auto (Bld) 22.0 % Normal 13.0 - 44.0 [facility] Comment on above: Performed By: #### L IPID ####[address] [place] [address] MCHC Auto mass conc (RBC) 32.1 g/dL Normal 32.0 - 36.0 [facility] Comment on above: Performed By: #### L IPID ####[address] [address] MCV Auto Entitic volume (RBC) 97 fL Normal 80 - 100 [facility] Comment on above: Performed By: #### L IPID ####[address] [address] Monocytes Auto #/vol (Bld) 0.41 10*3/uL Normal 0.05 - 0.80 [facility] Comment on above: Performed By: #### L IPID ####[address] [address] Monocytes/100 WBC Auto (Bld) 5.5 % Normal 2.0 - 10.0 [facility] Comment on above: Performed By: #### L IPID ####[address] [address] Neutrophils Auto #/vol (Bld) 5.16 10*3/uL Normal 1.60 - 5.50 [facility] Comment on above: Performed By: #### L IPID ####[address] [address] Platelets Auto #/vol (Bld) 246 10*3/uL Normal 150 - 450 [facility] Comment on above: Performed By: #### L IPID ####[address] [address] RBC Auto #/vol (Bld) 3.02 x10E12/L Low 4.00 - 5.20 [facility] Comment on above: Performed By: #### L IPID ####[address] [address] WBC Auto #/vol (Bld) 7.4 10*3/uL Normal 4.4 - 11.3 [facility] Comment on above: Performed By: #### L IPID ####[facility] [place] [address] CLOST.DIFF.TOXIN,PCRon 10-10 CLOST.DIFF.TOXIN,PCR DETECTED Abnormal Not Detected [facility] Comment on above: Order [...] 10/10/2017 03:35 Performed By: #### L IPID ####[id number] [place] [address] Consult-Infectious Diseaseon 10-10-2017 Consult-Infectious Disease Service:Service: Infectious [...] bowel obstruction (disorder):Acute bowel obstruction: Onset Date: 65-Xvb-7771Afmejgrrfni abdominal pain (finding):Acute bowel obstruction:Acute bowel obstruction: [...] Confusion? Restoril: Confusion Objective: Objective Information: T [id number]/749 9%Date/Time10/10 14: 14: 14:259 14: 14:25Range(36.4C - [...] Injectable Flush: 10 mL IntraVenous Flush Every 85Wsdlw7. Sodium Chloride 0.9% Injectable Flush PRN: 10 [...] Complete Blood Count + Differential Trending View Bomqkz28-Rxl-3067 03:32:00 09-Oct-2017 15:37:00White Blood Cell Count7.4 7.0Red Blood Cell Count3.02 L 3.22 LHGB9.4 L 10.0 LHCT29.3 L 32.1 LMCV97 052GWBZ87.1 31.2 LMTT711 285RDW-CV15.9 H 16.0 HNeutrophil %69.7 69.0Immature Granulocytes %0.3 0.3Lymphocyte %22.0 23.8Monocyte %5.5 6.1Eosinophil %2.0 0.4Basophil %0.5 0.4Neutrophil Count5.16 4.85Lymphocyte Count1.63 1.67Monocyte Count0.41 0.43Eosinophil Count0.15 0.03Basophil Count0.04 0.03 Basic Metabolic Panel Trending View Gwkjgu99-Fss-7742 03:32:00 09-Oct-2017 15:37:00Glucose, Hgquj799 H 80BX955 135 LK3.5 4.1GG007 99Bicarbonate, Serum27 27Anion Gap, Serum10 71KVT44 27 HCREAT1.14 H 1.73 HGFR-Non Ikgimyci94 A 28 AGFR- Ybwkaufw04 A 34 ACalcium, Serum8.2 L 9.5 Lactate, Level Trending View Uzjbyz39-Bmp-2138 17:49:00 09-Oct-2017 15:37:00Lactate, Level0.6 2.2 H Urinalysis 09-Oct-2017 17:44:00 ResultValueColor, Urine YELLOW Reference Range: STRAW,YELLOWAppearance, Urine HAZYSpecific [place], Urine 1.009pH, Urine 5.0Protein, Urine NEGATIVEGlucose, Urine [...] Last Updated: 10-Oct-2017 21:36 by Clif Eid) [facility] Consult-Surgeryon 10-10-2017 Consult-Surgery Service:Service: Leonora arianna Consult:Consult [...] bowel obstruction (disorder):Acute bowel obstruction: Onset Date: 02-Mdy-8321Nlpif bowel obstruction:Acute bowel obstruction:Generalized abdominal pain (finding): [...] Confusion? Restoril: Confusion Objective: Objective Information: T [id number]/739 5%Date/Time10/10 7: 7: 7: 7: 7:17Range(36.5C - [...] Updated: 11-Oct-2017 08:19 by Manny Arana) Normal [facility] History and Physicalon 10-10 History [...] hypokalemia,hypomagnesemia and colitis was admitted from the [facility] emergency room due tocolitis. Patient has had multiple abdominal surgeries in the past. She wasrecently discharged from the hospital on 09/01/17 and then a week later formanagement of small bowel obstruction and AMS. Treatment course in the ED included starting IV fluids, Cipro, Flagyl and oralVanco.stool for c diff +.Sodium 135, K 4.1, Bun/Creat 27/1.73Access started by PICC RN SURGICAL PCU in ED Past medical history: As stated above. Past surgical history: Multiple abdominal surgeries Social history: Patient never smoked. She is retired. No illicit drug use.She is and has one child. Family history significant for diabetes Admitted to [facility] med/surg with consults to surgery [...] oral tablet: 1 tab(s) orally once a kgnE-K-Ef-F-SatiZANidine 2 mg oral tablet: 1 tab(s) orally [...] and are negative Objective: Objective Information: T [id number]/739 5%Date/Time10/10 7: 7: 7: 7: 7:17Range(36.5C - [...] Injectable Flush: 10 mL IntraVenous Flush Every 16Vlynv27. Vancomycin Oral Liquid: 250 mg Oral Every 6 Hours PRN Medications ---- 1. Acetaminophen: 650 mg Oral Every 4 Hours2. Heparin Flush 10 unit/ mL PF Injectable: 5 mL IntraVenous Flush Every 39Tgavg7. Heparin Flush 10 unit/ mL PF Injectable [...] Complete Blood Count + Differential Trending View Drrdxh77-Gvc-0354 03:32:00 09-Oct-2017 15:37:00 05-Oct-2017 15:23:00White Blood Cell Count7.4 7.0 6.9Red Blood Cell Count3.02 L 3.22 L 3.58 LHGB9.4 L 10.0 L 11.0 LHCT29.3 L 32.1 L 35.7 LMCV97 100 938UKEZ88.1 31.2 L 30.8 FBCE708 285 397RDW-CV15.9 H 16.0 H 16.2 HNeutrophil %69.7 69.0 54.6Immature Granulocytes %0.3 0.3 0.3Lymphocyte %22.0 23.8 35.8Monocyte %5.5 6.1 7.0Eosinophil %2.0 0.4 1.3Basophil %0.5 0.4 1.0Neutrophil Count5.16 4.85 3.75Lymphocyte Count1.63 1.67 2.46Monocyte Count0.41 0.43 0.48Eosinophil Count0.15 0.03 0.09Basophil Count0.04 0.03 0.07 Basic Metabolic Panel Trending View Gaogzu70-Cem-0224 03:32:00 09-Oct-2017 15:37:00Glucose, Jwcau615 H 16ZG491 135 LK3.5 4.0JN920 99Bicarbonate, Serum27 27Anion Gap, Serum10 27EKB65 27 HCREAT1.14 H 1.73 HGFR-Non Egmxqxmz26 A 28 AGFR- Lpiuuzvd01 A 34 ACalcium, Serum8.2 L 9.5 Lactate, Level Trending View Lhprrp06-Mtj-8294 17:49:00 09-Oct-2017 15:37:00Lactate, Level0.6 2.2 H Urinalysis 09-Oct-2017 17:44:00 ResultValueColor, Urine YELLOW Reference Range: STRAW,YELLOWAppearance, Urine HAZYSpecific [place], Urine 1.009pH, Urine 5.0Protein, Urine NEGATIVEGlucose, Urine [...] PICC line inserted in ED by PICC CONDITIONING MACHINE OPERATOR Anxiety, depression- continue Wellbutrin, Sertraline Insomnia- continue to hold Trazadone Gerd- continue PPI Neuropathy pain- hold Tizandine- continue Neurotin for now Urinary frequency, continue home medication DVT Ambulation, Lovenox held due to anemia Disposition: [facility] med/surg. Home soon. Signatures/Attestation/Certi fication:Comments/ Additional FindingsPatient seen personally by me in collaboration with RN SURGICAL PCU. Agree with POC asdocumented above. Attending Provider [...] 96 hours after admission to the [facility]. Electronic Signatures:Aria Gandhi) (Signed 10-Oct-2017 13:46)Authored: Signatures/Attestation/Certi ficationCo-Signer: History of Present Illness, Comorbidities, Allergies, MedicationsPrior to Admission, Review of Systems, Objective, Assessment and Plan,Signatures/Attestation/ CertificationAlex Mayer (TOE FORMER STITCHDOWNS-CONDITIONING MACHINE OPERATOR) (Signed 10-Oct-2017 10:21)Authored: History of Present Illness, Comorbidities, Allergies, MedicationsPrior to Admission, Review of Systems, Objective, Assessment and Plan,Signatures/Attestation/ Certification Last Updated: 10-Oct-2017 13:46 by Aria Gandhi) Normal [facility] ALCOHOLon 10-09-2017 Ethanol mass conc mg/dL Normal [facility] Comment on above: Result Comment: FOR MEDICAL USE ONLY..REF VALUES <10 Performed By: #### L IPID ####[facility] [place] [address] AMYLASEon 10-09-2017 Amylase enzyme act/vol 58 U/L Normal 29 - 103 [facility] Comment on above: Performed By: #### L IPID ####[facility] [place] [address] Admission Risk Screen - Adul ton 10-09-2017 [...] DNR-CC Availabilityplaced in chart? DNR-CC Placed on Ylixe09-Ouy-2606 Falls Screen:Type of AssessmentadmissionModerate Risk Factorspatient care [...] Learning Preferencesindividual instruction? Cultural Considerationsnone? Developmental Considerationsnone? Uatsdin Considerationsnone Learning Assessment (Other Learner):? Other learner [...] Spiritual Screen:? Are there any cultural, spiritual, samaritan practices/values/needs that areimportant for us to know?no? Do you want a visit/item from Pastoral Care?no? Would you like your Crab Steamer/Cereal Popper notified?no CAGE:Is this an injured patient at a Trauma Center ([facility] [place] [facility] [place]): no Vaccinations:Vaccination - Influenza Vaccination Screen:? Is [...] Triage - ED 10/09/2017 1:22 PM Normal [facility] BASIC METABOLIC PANELon 08-3 1-2018 Anion gap 3 molar conc 13 mmol/L Normal 10 - 20 [facility] Comment on above: Performed By: #### L IPID ####[id number] [place] [address] Calcium mass conc 9.5 mg/dL Normal 8.6 - 10.3 [facility] Comment on above: Performed By: #### L IPID ####[address] [address] Chloride molar conc 99 mmol/L Normal 98 - 107 [facility] Comment on above: Performed By: #### L IPID ####[address] [address] Creatinine mass conc 1.73 mg/dL High 0.50 - 1.05 [facility] Comment on above: Performed By: #### L IPID ####[address] [address] GFR- AM. 34 mL/min/1.73m2 Abnormal >60 [facility] Comment on above: Result Comment: CALC ULATIONS OF ESTIMATED GFR ARE PERFORMED USING THE MDRD STUDY EQUATION FOR THE IDMS-TRACEABLE CREATININE METHODS. CLIN CHEM 2007;53:766-72 Performed By: #### L IPID ####[address] [address] GFR-NON AM. 28 mL/min/1.73m2 Abnormal >60 [facility] [facility] Comment on above: Performed By: #### L IPID ####[id number] [place] [address] Glucose mass conc 85 mg/dL Normal 74 - 99 [facility] Comment on above: Performed By: #### L IPID ####[id number] [place] [address] HCO3 molar conc (Bld) 27 mmol/L Normal 21 - 32 [facility] Comment on above: Performed By: #### L IPID ####[id number] [place] [address] Potassium molar conc 4.1 mmol/L Normal 3.5 - 5.3 [facility] Comment on above: Performed By: #### L IPID ####[facility] [place] [address] Sodium molar conc 135 mmol/L Low 136 - 145 [facility] Comment on above: Performed By: #### L IPID ####[facility] [place] [address] Urea nitrogen mass conc 27 mg/dL High 6 - 23 [facility] Comment on above: Performed By: #### L IPID ####[facility] [place] [address] BLOOD CULTURE, BACTERIALon 0 10-09-2017 BLOOD CULTURE, BACTERIAL PATIENT: KATHERINE JUDGE LOCATION: [address]#: [id number] : [birth year] AGE: SEX: F ORDERED BY: LOTUS VANCE: Blood COLLECTED: 10/09/17 15:37ANTIBIOTICS AT ESDRAS.: RECEIVED : 10/09/17 22:30SITE: PERIPHERAL R E S U L T S BLOOD CULTURE, BACTERIAL FINAL 10/14/17 23:42 No Growth at 1 days No Growth at 2 days No Growth at 3 days No Growth at 4 days NO GROWTH - FINAL REPORT Normal [facility] Comment on above: Performed By: #### V TDOH ####[facility] [place] [address] BLOOD CULTURE, BACTERIAL TEST BLOOD CULTURE, BACTERIAL WAS CANCELLED, 10/16/2017 16:10 DUPLICATE ORDER.PATIENT: KATHERINE JUDGE LOCATION: [address]#: [id number] : [birth year] AGE: SEX: F ORDERED BY: LOTUS VANCE: Blood COLLECTED: 10/09/17 15:30ANTIBIOTICS AT ESDRAS.: RECEIVED : SITE: PERIPHERAL R E S U L T S BLOOD CULTURE, BACTERIAL CANCELLED 10/16/17 16:10 Normal [facility] Comment on above: Performed By: #### V TDOH ####[facility] [place] [address] CBC AND DIFFERENTIALon 10-09 % AUTOMATED IMMATURE GRAN 0.3 % Normal 0.0 - 0.9 [facility] Comment on above: Result Comment: Perc ent differential counts (%) should be interpreted in the context of the absolute cell counts (cells/L). Performed By: #### L IPID ####[address] [address] % NEUTROPHIL 69.0 % Normal 40.0 - 80.0 [facility] Comment on above: Performed By: #### L IPID ####[address] [address] Basophils/100 WBC Auto (Bld) 0.4 % Normal 0.0 - 2.0 [facility] Comment on above: Performed By: #### L IPID ####[address] [address] Basophils/100 WBC Auto (Bld) 0.03 x10E9/L Normal 0.00 - 0.10 [facility] Comment on above: Performed By: #### L IPID ####[address] [address] Eosinophils Auto #/vol (Bld) 0.03 10*3/uL Normal 0.00 - 0.40 [facility] Comment on above: Performed By: #### L IPID ####[address] [address] Eosinophils/100 WBC Auto (Bld) 0.4 % Normal 0.0 - 6.0 [facility] Comment on above: Performed By: #### L IPID ####[address] [address] Erythrocyte distribution width Auto Ratio (RBC) 16.0 % High 11.5 - 14.5 [facility] Comment on above: Performed By: #### L IPID ####[address] [address] Hematocrit Auto Volume Fraction (Bld) 32.1 % Low 36.0 - 46.0 [facility] Comment on above: Performed By: #### L IPID ####[address] [address] Hemoglobin mass conc (Bld) 10.0 g/dL Low 12.0 - 16.0 [facility] Comment on above: Performed By: #### L IPID ####[address] [address] Lymphocytes Auto #/vol (Bld) 1.67 10*3/uL Normal 0.80 - 3.00 [facility] Comment on above: Performed By: #### L IPID ####[address] [address] Lymphocytes/100 WBC Auto (Bld) 23.8 % Normal 13.0 - 44.0 [facility] Comment on above: Performed By: #### L IPID ####[address] [address] MCHC Auto mass conc (RBC) 31.2 g/dL Low 32.0 - 36.0 [facility] Comment on above: Performed By: #### L IPID ####[address] [address] MCV Auto Entitic volume (RBC) 100 fL Normal 80 - 100 [facility] Comment on above: Performed By: #### L IPID ####[address] [address] Monocytes Auto #/vol (Bld) 0.43 10*3/uL Normal 0.05 - 0.80 [facility] Comment on above: Performed By: #### L IPID ####[address] [address] Monocytes/100 WBC Auto (Bld) 6.1 % Normal 2.0 - 10.0 [facility] Comment on above: Performed By: #### L IPID ####[address] [address] Neutrophils Auto #/vol (Bld) 4.85 10*3/uL Normal 1.60 - 5.50 [facility] Comment on above: Performed By: #### L IPID ####[address] [address] Platelets Auto #/vol (Bld) 285 10*3/uL Normal 150 - 450 [facility] Comment on above: Performed By: #### L IPID ####[facility] [place] [address] RBC Auto #/vol (Bld) 3.22 x10E12/L Low 4.00 - 5.20 [facility] Comment on above: Performed By: #### L IPID ####[facility] [place] [address] WBC Auto #/vol (Bld) 7.0 10*3/uL Normal 4.4 - 11.3 [facility] Comment on above: Performed By: #### L IPID ####[facility] [place] [address] CHEST 1 VIEWon 10-09-2017 CHEST 1 VIEW [...] fractures.Electronically signed by: THANH COLLADO MD Normal [facility] CT ABDOMEN AND PELVIS WO [...] L3 as well as severe compression of [id number] bodies noted. Degenerative disc space narrowing of [...] signed by: LEIGH ANN VALLADARES MD Normal [facility] HEPATIC FUNCTION PANELon Albumin mass conc 3.1 g/dL Low 3.4 - 5.0 [facility] Comment on above: Performed By: #### L IPID ####[address] [address] ALP enzyme act/vol 67 U/L Normal 33 - 136 [facility] Comment on above: Performed By: #### L IPID ####[address] [address] ALT enzyme act/vol 9 U/L Normal 7 - 45 [facility] Comment on above: Result Comment: Daniel ents treated with Sulfasalazine may generate falsely decreased results for ALT. Performed By: #### L IPID ####[id number] [place] [address] AST enzyme act/vol 19 U/L Normal 9 - 39 [facility] Comment on above: Performed By: #### L IPID ####[address] [place] [address] Bilirubin mass conc 0.4 mg/dL Normal 0.0 - 1.2 [facility] Comment on above: Performed By: #### L IPID ####[address] [place] [address] Bilirubin.direct mass conc 0.1 mg/dL Normal 0.0 - 0.3 [facility] Comment on above: Performed By: #### L IPID ####[address] [place] [address] Protein mass conc 6.4 g/dL Normal 6.4 - 8.2 [facility] Comment on above: Performed By: #### L IPID ####[address] [place] [address] LACTATEon 10-09-2017 Lactate molar conc 0.6 mmol/L Normal 0.4 - 2.0 [facility] Comment on above: Result Comment: Hali puncture immediately after or during the administration of Metamizole may lead to falsely low results. Testing should be performed immediately prior to Metamizole dosing. Performed By: #### L IPID ####[address] [address] Lactate molar conc 2.2 mmol/L High 0.4 - 2.0 [facility] Comment on above: Result Comment: Hali puncture immediately after or during the administration of Metamizole may lead to falsely low results. Testing should be performed immediately prior to Metamizole dosing. Performed By: #### L IPID ####[address] [address] LIPASEon 10-09-2017 Lipase enzyme act/vol 50 U/L Normal 9 - 82 [facility] Comment on above: Result Comment: Hali puncture immediately after or during the administration of Metamizole may lead to falsely low results. Testing should be performed immediately prior to Metamizole dosing. Performed By: #### L IPID ####[address] [address] OCCULT BLOOD TEST,STOOLon OCCULT BLOOD,STOOL Positive Abnormal Negative [facility] Comment on above: Performed By: #### L IPID ####[address] [address] PT/INRon 10-09-2017 INR Coag RelTime (PPP) 1.1 {INR} Normal 0.9 - 1.1 [facility] Comment on above: Performed By: #### L IPID ####[address] [address] Prothrombin time (PT) Coag time (PPP) 11.5 s Normal 9.8 - 12.7 [facility] Comment on above: Performed By: #### L IPID ####[facility] [place] [address] Patient Profile - Adult v2on 10-09-2017 Protein mass conc Profile:Initial Info :How to be AddressedAliceSpoken Language PreferredEnglish (1)Source of InformationpatientAre you currently using the Personal Electronic Health Record or MYCAREnoAre you interested in learning more about [facility] for the management of yourhealthdeclinedStated Reason for Admissiondizziness weakness low BPPrimary Contact Name and [phone] brother Nancy VelozLimitations on Visitors/Phone CallsnoneTemporary Family Living Arrangements (While Hospitalized)none neededArrived Fromemergency departmentWas Admitted To in Past 90 Daysskselect medical [facility] nursing facilityEmployment StatusdisabledCurrent or Previous ServicenonePatient Belongingsremains [...] - Adult v2 09/05/2017 6:30 AM Normal [facility] Provider Note - ED Care [...] Updated: 09-Oct-2017 19:35 by Spencer Hardy) Normal [facility] Provider Note - ED v2on 08-3 1-2018 Protein mass conc Provider Note - ED v 2:Chart Review:ED NOTESED NOTES: Patient states she was hospitalized due to GI tract required resection of thebowel and subsequently went to halfway for rehabilitation, after dischargefrom the halfway rehabilitation treatment patient was at home was [...] oral tabletInstructions: 1 tab(s) orally once a [id number]-Y-Wn-F-Sa Drug Name: tiZANidine 2 mg oral tabletInstructions: [...] difficile toxin (C-Diff) Additional Notes:came with ( [facility] Status:Active Description:Methicillin-Resi stant Staph Aureus (MRSA) Additional Notes:sputum Status:Active Description:Clostridium difficile toxin (C-Diff) Status:Active Other Description:Narcotic Use Status:Active Description:Family spokesperson Additional Notes: CARLOS [phone] BROTHER RYLAND [phone] Status:Active Past Medical History Description:colitis Status:Active Description:mitral [...] SIGNS VITAL SIGNS: T PRBP SpO2O2(LPM) %FiO2 [id number] 13:22:[id number]/38 93 room air, no respiratorysupport EKG INTERPRETATION:EKG [...] Triage - ED 10/09/2017 1:22 PM Normal [facility] TROPONIN Ion 10-09-2017 Troponin I.cardiac mass conc ng/mL Normal 0.00 - 0.03 [facility] Comment on above: Result [...] testing is performed using differenttesting methodology at [facility] than at [facility]. Direct result comparisons should onlybe made within the same method. Performed By: #### L IPID ####[facility] [place] [address] Triage - EDon 10-09-2017 Triage - ED [...] 09-Oct-2017 13:24 by Nelia Pierre (RN) Normal [facility] URINALYSISon 10-09-2017 APPEARANCE HAZY Normal CLEAR [facility] Comment on above: Performed By: #### L IPID ####[address] [place] [address] BILIRUBIN Negative Normal NEGATIVE [facility] Comment on above: Performed By: #### L IPID ####[address] [place] [address] BLOOD Negative Normal NEGATIVE [facility] Comment on above: Performed By: #### L IPID ####[address] [place] [address] COLOR YELLOW Normal STRAW,YELL OW [facility] Comment on above: Performed By: #### L IPID ####[address] [place] [address] GLUCOSE Negative Normal NEGATIVE [facility] Comment on above: Performed By: #### L IPID ####[address] [place] [address] KETONES Negative Normal NEGATIVE [facility] Comment on above: Performed By: #### L IPID ####[address] [place] [address] LEUKOCYTE ESTERASE Negative Normal NEGATIVE [facility] Comment on above: Performed By: #### L IPID ####[address] [place] [address] NITRITE Negative Normal NEGATIVE [facility] Comment on above: Performed By: #### L IPID ####[address] [place] [address] pH 5.0 Normal 5.0 - 8.0 [facility] Comment on above: Performed By: #### L IPID ####[address] [place] [address] Protein mass conc Negative Normal NEGATIVE [facility] Comment on above: Performed By: #### L IPID ####[address] [place] [address] SPECIFIC GRAVITY 1.009 Normal 1.005 - 1.035 [facility] Comment on above: Performed By: #### L IPID ####[facility] [place] [address] UROBILINOGEN <2.0 Normal 0.0 - 1.9 [facility] Comment on above: Performed By: #### L IPID ####[address] [place] [address] URINE CULTURE,BACTERIALon URINE CULTURE,BACTERIAL PATIENT: KATHERINE JUDGE LOCATION: [address]#: [id number] : [birth year] AGE: SEX: F ORDERED BY: LOTUS VANCE: URINE COLLECTED: 10/09/17 17:44ANTIBIOTICS AT ESDRAS.: RECEIVED : 10/10/17 09:59SITE: Straight Cath R E S U L T S URINE CULTURE,BACTERIAL FINAL 10/11/17 09:09 NO GROWTH Normal [facility] Comment on above: Performed By: #### V TDOH ####[facility] [place] [address] CBC AND DIFFERENTIALon 10-05 % AUTOMATED IMMATURE GRAN 0.3 % Normal 0.0 - 0.9 [facility] Comment on above: Result Comment: Perc ent differential counts (%) should be interpreted in the context of the absolute cell counts (cells/L). Performed By: #### L IPID ####[facility] [place] [address] % NEUTROPHIL 54.6 % Normal 40.0 - 80.0 [facility] Comment on above: Performed By: #### L IPID ####[address] [place] [address] Basophils/100 WBC Auto (Bld) 1.0 % Normal 0.0 - 2.0 [facility] Comment on above: Performed By: #### L IPID ####[address] [address] Basophils/100 WBC Auto (Bld) 0.07 x10E9/L Normal 0.00 - 0.10 [facility] Comment on above: Performed By: #### L IPID ####[address] [address] Eosinophils Auto #/vol (Bld) 0.09 10*3/uL Normal 0.00 - 0.40 [facility] Comment on above: Performed By: #### L IPID ####[address] [address] Eosinophils/100 WBC Auto (Bld) 1.3 % Normal 0.0 - 6.0 [facility] Comment on above: Performed By: #### L IPID ####[address] [address] Erythrocyte distribution width Auto Ratio (RBC) 16.2 % High 11.5 - 14.5 [facility] Comment on above: Performed By: #### L IPID ####[address] [address] Hematocrit Auto Volume Fraction (Bld) 35.7 % Low 36.0 - 46.0 [facility] Comment on above: Performed By: #### L IPID ####[address] [address] Hemoglobin mass conc (Bld) 11.0 g/dL Low 12.0 - 16.0 [facility] Comment on above: Performed By: #### L IPID ####[address] [address] Lymphocytes Auto #/vol (Bld) 2.46 10*3/uL Normal 0.80 - 3.00 [facility] Comment on above: Performed By: #### L IPID ####[address] [address] Lymphocytes/100 WBC Auto (Bld) 35.8 % Normal 13.0 - 44.0 [facility] Comment on above: Performed By: #### L IPID ####[address] [place] [address] MCHC Auto mass conc (RBC) 30.8 g/dL Low 32.0 - 36.0 [facility] Comment on above: Performed By: #### L IPID ####[address] [address] MCV Auto Entitic volume (RBC) 100 fL Normal 80 - 100 [facility] Comment on above: Performed By: #### L IPID ####[address] [address] Monocytes Auto #/vol (Bld) 0.48 10*3/uL Normal 0.05 - 0.80 [facility] Comment on above: Performed By: #### L IPID ####[address] [address] Monocytes/100 WBC Auto (Bld) 7.0 % Normal 2.0 - 10.0 [facility] Comment on above: Performed By: #### L IPID ####[address] [address] Neutrophils Auto #/vol (Bld) 3.75 10*3/uL Normal 1.60 - 5.50 [facility] Comment on above: Performed By: #### L IPID ####[address] [address] Platelets Auto #/vol (Bld) 397 10*3/uL Normal 150 - 450 [facility] Comment on above: Performed By: #### L IPID ####[address] [address] RBC Auto #/vol (Bld) 3.58 x10E12/L Low 4.00 - 5.20 [facility] Comment on above: Performed By: #### L IPID ####[address] [address] WBC Auto #/vol (Bld) 6.9 10*3/uL Normal 4.4 - 11.3 [facility] Comment on above: Performed By: #### L IPID ####[address] [address] COMPREHENSIVE PANELon 2017 Albumin mass conc 3.6 g/dL Normal 3.4 - 5.0 [facility] Comment on above: Performed By: #### L IPID ####[address] [address] ALP enzyme act/vol 73 U/L Normal 33 - 136 [facility] Comment on above: Performed By: #### L IPID ####[address] [address] ALT enzyme act/vol 8 U/L Normal 7 - 45 [facility] Comment on above: Result Comment: Daniel ents treated with Sulfasalazine may generate falsely decreased results for ALT. Performed By: #### L IPID ####[address] [address] Anion gap 3 molar conc 16 mmol/L Normal 10 - 20 [facility] Comment on above: Performed By: #### L IPID ####[address] [address] AST enzyme act/vol 16 U/L Normal 9 - 39 [facility] Comment on above: Performed By: #### L IPID ####[address] [address] Bilirubin mass conc 0.4 mg/dL Normal 0.0 - 1.2 [facility] Comment on above: Performed By: #### L IPID ####[address] [address] Calcium mass conc 10.2 mg/dL Normal 8.6 - 10.3 [facility] Comment on above: Performed By: #### L IPID ####[address] [place] [address] Chloride molar conc 101 mmol/L Normal 98 - 107 [facility] Comment on above: Performed By: #### L IPID ####[address] [address] Creatinine mass conc 1.36 mg/dL High 0.50 - 1.05 [facility] Comment on above: Performed By: #### L IPID ####[address] [address] GFR- AM. 45 mL/min/1.73m2 Abnormal >60 [facility] Comment on above: Result Comment: CALC ULATIONS OF ESTIMATED GFR ARE PERFORMED USING THE MDRD STUDY EQUATION FOR THE IDMS-TRACEABLE CREATININE METHODS. CLIN CHEM 2007;53:766-72 Performed By: #### L IPID ####[address] [place] [address] GFR-NON AM. 37 mL/min/1.73m2 Abnormal >60 [facility] Comment on above: Performed By: #### L IPID ####[address] [place] [address] Glucose mass conc 89 mg/dL Normal 74 - 99 [facility] Comment on above: Performed By: #### L IPID ####[address] [address] HCO3 molar conc (Bld) 25 mmol/L Normal 21 - 32 [facility] Comment on above: Performed By: #### L IPID ####[address] [address] Potassium molar conc 5.8 mmol/L High 3.5 - 5.3 [facility] Comment on above: Performed By: #### L IPID ####[address] [place] [address] Protein mass conc 7.5 g/dL Normal 6.4 - 8.2 [facility] Comment on above: Performed By: #### L IPID ####[address] [address] Sodium molar conc 136 mmol/L Normal 136 - 145 [facility] Comment on above: Performed By: #### L IPID ####[address] [place] [address] Urea nitrogen mass conc 26 mg/dL High 6 - 23 [facility] Comment on above: Performed By: #### L IPID ####[address] [address] MAGNESIUMon 10-05-2017 Magnesium mass conc 2.24 mg/dL Normal 1.60 - 2.40 [facility] Comment on above: Performed By: #### L IPID ####[facility] [place] [address] VIT B1-THIAMINE WHOLE BLDon 09-11-2017 VIT B1-THIAMINE WHOLE BLD 133 nmol/L Normal 70-180 [facility] Comment on above: Result Comment: INTE RPRETIVE INFORMATION: Vitamin B1, Whole BloodThis assay measures the concentration of thiamine diphosphate(TDP), the primary active form of vitamin B1. Approximately 90percent of vitamin B1 present in whole blood is TDP. Thiamine andthiamine monophosphate, which comprise the remaining 10 percent,are not measured.Test developed and characteristics determined by [facility]. See Compliance Statement B: [facility]/CSPerformed by [facility],[address] [id number] rry.[facility], Noble Hernandez MD - Lab. Director Performed By: #### V TB1W ####[facility] [place] [address] Daily Progress Note-Medicine on 09-08-2017 Protein mass conc Service: Medicine Rick bjective Data:KATHERINE JUDGE is a 82 year old Female who is Hospital Day # 4. Objective Data: Objective Information:T [id number]/6193% Date/Time09/08 10: 10: 10: 10: 10:22Range(36.5C - [...] Urine STRAW Reference Range: STRAW,YELLOWAppearance, Urine CLEARSpecific [place], Urine 1.005pH, Urine 6.0Protein, Urine NEGATIVEGlucose, Urine [...] hypokalemia,hypomagnesemia and colitis was admitted from the [facility] emergency room due toaltered mental status. Acute encephalopathy-clearedMRI shows multiple puntate lesion and cortical contusionseen by neurology, likely result from fall, no concern for stroke Status post unwitnessed fall-Periorbital contusion-EKG showed normal sinus rhythm with RBBB and some ST changes in the inferiorleads.-negative orthostatrics Hypokalemia: resolved CODE STATUS: DO NOT RESUSCITATE [facility] records. Patient is back to baseline neurologically, [facility] Nutrition Diagnosis:? Nutrition DiagnosisAgree with [...] Updated: 08-Sep-2017 12:58 by Roslyn Eid) Normal [facility] Consulton 09-07-2017 Consult Service:Consult:Trish on: [...] recollection offall. does have ecchymotic area left christian.Previous records reviewed, BP was elevated 2 weeks [...] at home, independent, son [facility] dtr [facility] Incomplete ROS: patient's impaired mental status [...] Confusion? Restoril: Confusion Objective: Objective Information: T [id number]/709 4%Date/Time09/07 19: 19: 19: 19: 19:58Range(36.5C - [...] Appropriate mood and behaviorSkin: Warm and dry, [place], Ecchymotic bruising left christian. Medications: Medications: Continuous Medications ---- 1. Sodium [...] laboratory results: Basic Metabolic Panel Trending View [id number] 05:45:00 05-Sep-2017 08:30:00Glucose, Uftqp646 H 111 QFJ079 138K3.8 3.2 OPR272 104Bicarbonate, Serum27 26Anion Gap, Serum12 11BUN7 33NOIHA7.57 0.75GFR-Non >60 >60GFR->60 >60Calcium, Serum8.7 8.9 Vitamin B12, Serum 06-Sep-2017 05:45:00 ResultValueVitamin B12, Serum 770 Thyroid Stimulating Hormone, Serum 06-Sep-2017 05:45:00 ResultValueThyroid Stimulating Hormone, Serum 2.11 Vitamin D (25-Hydroxy), Level 06-Sep-2017 05:45:00 ResultValueVitamin D (25-Hydroxy), Level 19 A Ammonia, Plasma 06-Sep-2017 05:45:00 ResultValueAmmonia, Plasma 19 Folate, Serum 06-Sep-2017 05:45:00 ResultValueFolate, Serum > 24.0 Troponin I, Serum Trending View [id number] 11:40:00 05-Sep-2017 08:30:00 05-Sep-2017 01:49:00Troponin I, Serum0.02 0.02 0.02 Complete Blood Count 05-Sep-2017 08:30:00 ResultValueWhite Blood Cell Count 10.6Red Blood Cell Count 2.72 LHGB 8.5 LHCT 27.1 LMCV 100MCHC 31.4 LPLT 359RDW-CV 15.5 H Lactate, Level 05-Sep-2017 01:49:00 ResultValueLactate, Level 1.0 Urinalysis 05-Sep-2017 01:37:00 ResultValueColor, Urine STRAW Reference Range: STRAW,YELLOWAppearance, Urine CLEARSpecific [place], Urine 1.005pH, Urine 6.0Protein, Urine NEGATIVEGlucose, Urine [...] MRA neck. The study was interpreted at [facility] [facility] MRA Head without Contrast [Sep 06 [...] 22.2 cm2LA Area A2C: 19.3 cm2LA [place] A4C: 5.9 cmLA [place] A2C: 5.4 cmLA Volume Index: 40.5 ml/m2RA VOLUME BY A/L METHOD: Normal Ranges:RA Vol A4C: 17.8 ml (8.3-19.5ml)RA Vol Index A4C: 11.5 ml/m2RA Area A4C: 9.6 cm2RA [place] A4C: 4.4 cmM-MODE MEASUREMENTS: Normal Ranges:Ao Root: [...] standing today.Cont. Imdur, Plavix, and resume PO m8yagrtul.Monitor Orthostatic vitals another 24 hrs.Continue telemetry Electronic Signatures:Ventura Thacker) (Signed 07-Sep-2017 21:58)Authored: Service, History of Present Illness, Review Family/Social Historyand ROS, Allergies, Objective, Assessment/Recommendations,S ignature/Cosignature/Attesta tion Last Updated: 07-Sep-2017 21:58 by Ventura Thacker) Normal [facility] Daily Progress Note-Neurolog yon 09-07-2017 Protein mass conc Service: Neurology Subjective Data:KATHERINE JUDGE is a 82 year old Female who is Hospital Day # 2. Objective Data: Objective Information:T [id number]/669 2%Date/Time09/06 21: 18: 21: 18: 21:Range(36.7C - 37.4C ) (73 - 96 ) (16 - 18 ) (111 - 189 )/ (66 - 104 )(92% - 97% )Highest temp of 37.4 C was recorded at 09/06 12:45 Pain at Rest reported at 09/06 20:35: 3Zrevxsodtqu4/29 21:29 P TSRbgit18194 / 64 (138 - 162 ) / (64 - 87 )Smwyfjg74200 / 71 (136 - 146 ) / (68 - 82 )Ipnflnmi896621 / 61 (101 - 124 ) / [...] MRA neck. The study was interpreted at [facility]. MRA Neck without Contrast [Sep 06 [...] MRA neck. The study was interpreted at [facility]. MRA Head without Contrast [Sep 06 [...] MRA neck. The study was interpreted at [facility]. MRI Brain without Contrast [Sep 06 [...] Updated: 06-Sep-2017 22:21 by Altagracia Nicolas) Normal [facility] Discharge Urajbrl7xa 07-30-2 018 Protein mass conc Discharge Orders:Ant icipated Discharge Date:? Anticipated Discharge Omtx37-Tjn-4980? Anticipated Discharge Time11:00 Problem List: Additional Dx:? Hypokalemia: Catalog Name: Hypokalemia? Fall: Catalog Name: Unspecified fall, initial encounter? Leukocytosis: Catalog Name: Elevated white blood cell count, unspecified? Encephalopathy: Catalog Name: Encephalopathy, unspecified? Essential hypertension: Catalog Name: Essential (primary) hypertension? CAD (coronary artery disease): Catalog Name: Atherosclerotic heart diseaseof holy cross coronary artery without angina pectoris? Hypercalcemia: Catalog [...] Medical HistoryCABG (2 vessel): Past Surgical History, 37-Fby-5392DHV: Past Medical HistoryNon ST elevation NE: Past Medical History, 04-Rkz-7915Fngklsbq atherosclerosis: Past Medical HistorySepsis: Past Medical HistoryVenous thromboembolism: Past Medical HistoryChronic anemia: Past Medical HistoryNarcotic Use: OtherClostridium difficile toxin (C-Diff): Infection Control, 27-Aug-2012, [facility] ( [facility])Congestive Heart Failure (CHF): Past Medical HistoryMethicillin-Resistant Staph Aureus (MRSA): Infection Control, Mar 2012, sputumFamily spokesperson: Other, CARLOS [phone] BROTHERPAUL VELOZ [phone] Information: Contacts, son Ganga [phone] difficile toxin (C-Diff): Infection Control, 08-Jul-2017 Hospital Providers:Provider RoleProvider Name? Magui Love? Brionna Galindo? Benjy Pruitt Activity:activity as tolerated. May shower. Hospital Course (Home Care/Gold Form):Hospital Course:? Hospital Course: include significant abnormal lab eencge03-gvey-fsu female with a past medical history of failure to thrive,gastrocutaneous fistula, constipation, ileus, small bowel obstruction,transient ischemic colitis, anemia, protein calorie malnutrition, hypokalemia,hypomagnesemia and colitis was admitted from the [facility] emergency room due toaltered mental status. Acute [...] will monitor Hypokalemia-We will repeat labs DVT gpxaqbtdspa-Czkhzrg-xb light of cortical contusion and possible punctate lesions which maybe secondary to injury will d/c CODE STATUS: DO NOT RESUSCITATE [facility] halfway records. Patient is back to baseline neurologicallywill [...] ? Reason for Referralpost hospitalization ? Scheduled Date/Xmgf40-Jzc-1879 11:00? [id number] [place] [address]? Phone [phone]? CommentsPlease arrive 10-15 minutes early, bring photo ID, insurance cards,discharge summary, and a list of current medications. Please call the officeif you need to change this appointment. Follow-Up Appointment 02:? Physician/Dept/ServiceDr. Altagracia Nicolas Neurology ? Reason for Referralpost hospitalization ? Scheduled Date/Hufr45-Ool-1478 11:00? [id number] [place] [address]? Phone [phone]? CommentsPlease arrive 10-15 minutes early, bring photo ID, insurance cards,discharge summary, and a list of current medications. Please call the officeif you need to change this appointment. Gold Form - Nursing Summary:Special Treatments/Procedures (in past 14 days):? Chemotherapyno? Dialysisno? IV Medicationno? Oxygen Therapyno? Transfusionsno? Feverno? Radiationno? Ventilatorno? Tracheostomyno? Suctioningno Nutrition:? Nutritional Statusfeeds self Sensory/Comfort:? Visionadequate? Hearingadequate? Speechclear? Painno Elimination:? Bladdercontinent? Bowelcontinent? Last Bowel Xgvumwkx95-Hgj-1694? Toiletingtoilet Safety:? Siderailsno? Restraintsno? Sitterno? Fall Riskprevious falls, weakness Medication/Hygiene/Mobility: ? Medication Administrationassist? Bathingassist? Dressingassist? Bed Mobilityassist? Wheelchairassist? Transfersassist? Ambulationassist Electronic Signatures:Elida Calderón (RN) (Signed 08-Sep-2017 09:01)Authored: Gold Form - Nursing SummaryBrionna Llanes) (Signed 07-Sep-2017 20:40)Authored: Discharge Orders, Hospital Course (Home Care/Gold Form), ProviderFINAL REVIEW of Orders, Appointments, Gold Form - Rn Admit SummaryBrionna Hill (PT ACC REP) (Signed 08-Sep-2017 09:49)Authored: Appointments Last Updated: 08-Sep-2017 09:49 by Brionna Hill (PT ACC REP) Normal [facility] Nutrition Therapy-Assessment on 09-07-2017 Nutrition Therapy-Assessment Assessment Subjective/Objective:Note Type: Assessment Note Authored by: Registered Dietitian NutritionistPager Number: [phone] Nutrition Note:The patient is a 82 year [...] bowel obstruction (disorder):Acute bowel obstruction: Onset Date: 40-Ucf-7638Osedpwgzckn abdominal pain (finding): Chronic:Fluid overload pulmonary edema:Clostridium difficile infection:Chest pain:Diarrhea: Other Dx/Proc:CHEST PAIN: Description: CHEST PAINUnstable angina/chest pain: Description: Unstable angina/chest painGastrointestinal bleeding: Description: Gastrointestinal bleeding1 Colitis, 2 Abdomen Pain 3 Cholelithiasis: Onset Date: 24-Bsk-0943Xwmrs failure: Description: Heart failurePNEUMONIA:Diabetes mellitus: Description: Diabetes [...] bowel obstruction (disorder):Acute bowel obstruction: Onset Date: 39-Ibs-5978Ztgpnywyqtu abdominal pain (finding):Acute bowel obstruction:Acute bowel obstruction: Objective Information: T LZRRAtM7Xtxmv97.86849330/799 7%Date/Time09/07 10: 10: 10: 10: 10:58Range(36.5C - 37.4C ) (82 - 99 ) (16 - 19 ) (111 - 171 )/ (66 - 80 ) (92%- 98% )Highest temp of 37.4 C was recorded at 09/06 12:45 Pain at Rest reported at 09/07 9:30: 0 ---- Intake and Output -----Mn/Dy/Year TimeIntakeOutputNetJul 2017 10:00 [id number] 2017 2:00 [id number] The Intake and Output Totals for the last 24 hours are:ZnchzzTipxktImp7478esxsp ull Intake Output Enteral - Oral 600 mL IV Fluids 600 mL Height/Weight:Height in feet: 5 feetHeight in inches: 0 inch(es)Height in cm: 152.4 centimeter(s)Weight (kg): 43.8BMI (kg/m2): 18.858 square meterDBW (kg): 45%DBW: 97Weight history/ % weight change: 08/31/17 -- 40.6kg06/18/17 -- 45.9kg, 4.5% weight loss in 3 months; noted but not signfiican03/20/17 -- 46.8kg -- 6.4% weight loss in 6 months; not ijwaqgwvpdt32/13/17 -- 45.9kg07/30/16 -- 49kg -- 10.6% weight [...] 24.0 Nutrition Labs:Special Chemistry: 03-Jul-2017 10:15, Hemoglobin S2GWezcpmocsf A1C, Level5.3 Diagnosis of Diabetes-Adults Non-Diabetic: < or = 5.6% Increased risk for developing diabetes: 5.7-6.4% Diagnostic of diabetes: > or = 6.5%. Monitoring of Diabetes Age (y) Therapeutic Goal (%) Adults: >18 <7.0 Pediatrics: 13-18 <7.5 7-12 <8.0 0- 6 7.5-8.5 [place] [employer]. Diabetes Care 33(S1), Feb 2009.Estimated Average Njrygtw430Doqxneltvkhqa: 06-Sep-2017 05:45, Vitamin D (25-Hydroxy), LevelVitamin D (25-Hydroxy), Level19.DEFICIENCY: < 20 NG/MLINSUFFICIENCY: 20-29 NG/MLOPTIMUM LEVEL: 30-80 NG/MLPOSSIBLE TOXICITY: > 80 NG/MLTHIS ASSAY ACCURATELY QUANTIFIES THE SUM OFVITAMIN D3, 25-HYDROXY AND VIT D2,25-HYDROXY. Current Active Medications/PN:Isosorbide Mononitrate Extended Release, Tablet, Extended Release (IMDUR)DOSE = 60 mg Oral Daily, 30-Hzd-2447Mfxoyxpqh Chloride Powder Packet, (K-SHAUN)DOSE = 20 mEq Oral DailyNotes from Pharmacy: Substitution for Potassium Chloride Oral Liquid 20 mEqDaily, 36-Imy-4925Sneflffzpt Injectable, (LOPRESSOR)DOSE = 5 mg IntraVenous Push Every 6 HoursClinician Notes: hold for SBP<105 or HR<60, 72-Yzc-1314Faoinzjty 5% TransDermal, Film (LIDODERM)DOSE = 1 patch TransDermal Every 24 HoursClinician Notes: to back, 28-Rwk-5576Jqvzdtmxvutyz, Tablet (TYLENOL)DOSE = 650 mg Oral Every 6 Hours, PRN Pain - Mild (1-3), 27-Ppd-4579Uzyzxcdgnan, Tablet (PLAVIX)DOSE = 75 mg Oral Daily, 88-Fpv-5336Fdrlpgqpymmqxhk (Vitamin D3), TabletDOSE = 1,000 International Unit(s Oral Daily, 13-Pzw-1320Bpekhg Chloride 0.9% with Potassium CL 20 mEq Premix Fluid, IV Bag Volume =1,000 mL Run at: 75 mL/hr IntraVenous , 06-Sep-2017 Nutrition Orders:Diet May Not Participate in Room Service, NoOrder entered from Admission Screens., 06-Ixz-0541Rgnm, RegularTexture: Soft, 12-Vwc-1797Wpqn Nutritional Supplements, RoutineMagic CupFlavor Preference: [place]; [place], 2 Times a DaySpecial Instructions: Please send [...] 12:59 by Mikie May (DEEPA HENRIQUEZ) Normal [facility] AMMONIAon 09-06-2017 Ammonia mass conc (P) 19 umol/L Normal [facility] Comment on above: Result Comment: .REF ERENCE VALUESDAY 1 to DAY 7 <110DAY 8 to DAY 14 < 90DAY 15 to ADULT 16-53 Performed By: #### A MM ####[address] [address] BASIC METABOLIC PANELon 07- Anion gap 3 molar conc 12 mmol/L Normal 10 - 20 [facility] Comment on above: Performed By: #### B MP ####[address] [address] Calcium mass conc 8.7 mg/dL Normal 8.6 - 10.3 [facility] Comment on above: Performed By: #### B MP ####[facility] [id number] [place] [address] Chloride molar conc 104 mmol/L Normal 98 - 107 [facility] Comment on above: Performed By: #### B MP ####[facility] [id number] [place] [address] Creatinine mass conc 0.57 mg/dL Normal 0.50 - 1.05 [facility] Comment on above: Performed By: #### B MP ####[facility] [id number] [place] [address] GFR- AM. >60 Normal >60 [facility] Comment on above: Result Comment: CALC ULATIONS OF ESTIMATED GFR ARE PERFORMED USING THE MDRD STUDY EQUATION FOR THE IDMS-TRACEABLE CREATININE METHODS. CLIN CHEM 2007;53:766-72 Performed By: #### B MP ####[facility] [id number] [place] [address] GFR-NON AM. >60 Normal >60 [facility] Comment on above: Performed By: #### B MP ####[facility] [id number] [place] [address] Glucose mass conc 110 mg/dL High 74 - 99 [facility] Comment on above: Performed By: #### B MP ####[facility] [id number] [place] [address] HCO3 molar conc (Bld) 27 mmol/L Normal 21 - 32 [facility] Comment on above: Performed By: #### B MP ####[facility] [id number] [place] [address] Potassium molar conc 3.8 mmol/L Normal 3.5 - 5.3 [facility] Comment on above: Performed By: #### B MP ####[facility] [id number] [place] [address] Sodium molar conc 139 mmol/L Normal 136 - 145 [facility] Comment on above: Performed By: #### B MP ####[facility] [id number] [place] [address] Urea nitrogen mass conc 7 mg/dL Normal 6 - 23 [facility] Comment on above: Performed By: #### B MP ####[facility] [id number] [place] [address] Daily Progress Note-Medicine on 09-06-2017 Protein mass conc Service: Medicine Rick bjective Data:KATHERINE JUDGE is a 82 year old Female who is Hospital Day # 2. Patient is back to baseline neurologically. Objective Data: Objective Information:T AFVVVxM5Ecmlz93.83782798/669 4%Date/Time09/06 12: 12: 12: 12: 12:57Range(36.7C - [...] Urine STRAW Reference Range: STRAW,YELLOWAppearance, Urine CLEARSpecific [place], Urine 1.005pH, Urine 6.0Protein, Urine NEGATIVEGlucose, Urine [...] 20:32NSTEMI (non-ST elevated myocardial infarction): Entered Date: 18-Tcy-897796:25UTI (urinary tract infection), bacterial: Entered Date: 27-Dec-2016 [...] bowel obstruction: Onset Date: 11-Feb-2012, Entered Date: 33-Xgz-316653:56Generalized abdominal pain (finding): Entered Date: 11-Feb-2012 18:56 [...] ST Elevation Myocardial Infarction (NSTEMI): Entered Date: 60-Cbf-891154:29Coronary angioplasty/stent (PCI): Entered Date: 12-Dec-2009 15:30Dyspnea: Entered [...] hypokalemia,hypomagnesemia and colitis was admitted from the [facility] emergency room due toaltered mental status. Acute [...] will monitor Hypokalemia-We will repeat labs DVT fmmitjfakgf-Gedwtxp-sc light of cortical contusion and possible punctate lesions which maybe secondary to injury will d/c CODE STATUS: DO NOT RESUSCITATE [facility] halfway records. Patient is back to baseline neurologicallywill continue to monitor Electronic Signatures:Brionna Llanes) (Signed 06-Sep-2017 16:28)Authored: Service, Subjective Data, Objective Data, Assessment and Plan,Signature/Cosignature/A ttestation Last Updated: 06-Sep-2017 16:28 by Brionna Llanes) Normal [facility] FOLATE, SERUMon 09-06-2017 Folate [Mass/volume] in Serum or Plasma > 24.0 Normal >5.0 [facility] Comment on above: Result Comment: Daniel ents receiving more than 5 mg/day of biotin may have interference in test results. A sample should be taken no sooner than eight hours after previous dose. Contact [phone] for additional information. Performed By: #### F OLA2 ####[id number] [place] [address] NR MRA HEAD W/O Con 09-07-19 18 NR MRA HEAD W/O C Name: KATHERINE JUDGE STUDY:NR MRI BRAIN WO; NR MRA HEAD W/O C; NR MRA NECK WO.C; 09/06/2017 12:00pm INDICATION:Signs/Symptoms: Recent fall, CHI, stroke symptoms- evaluate for acutestroke; ALTERED MENTAL STATUS. Stroke protocol. COMPARISON: CT head from 09/05/2017 [id number]; [id number] ORDERING CLINICIAN:ALTAGRACIA GOODMAN TECHNIQUE:Axial T2, FLAIR, DWI and sagittal and coronal T1 weighted images ofbrain were acquired. T0 axial gradient echo T2 imaging was alsoperformed. Jqrn-qk-eycbvh MRA of the head and neck was [...] MRA neck. The study was interpreted at [facility].Electronically signed by: TOLU MARTINEZ MD Normal [facility] NR MRA NECK WO.Con 8 NR MRA NECK WO.C Name: KATHERINE JUDGE STUDY:NR MRI BRAIN WO; NR MRA HEAD W/O C; NR MRA NECK WO.C; 09/06/2017 12:00pm INDICATION:Signs/Symptoms: Recent fall, CHI, stroke symptoms- evaluate for acutestroke; ALTERED MENTAL STATUS. Stroke protocol. COMPARISON: CT head from 09/05/2017 [id number]; [id number] ORDERING CLINICIAN:ALTAGRACIA GOODMAN TECHNIQUE:Axial T2, FLAIR, DWI and sagittal and coronal T1 weighted images ofbrain were acquired. T0 axial gradient echo T2 imaging was alsoperformed. Djbr-sx-onaoip MRA of the head and neck was [...] MRA neck. The study was interpreted at [facility].Electronically signed by: TOLU MARTINEZ MD [facility] NR MRI BRAIN WOon 09-06-2017 NR MRI BRAIN WO Name: KATHERINE JUDGE STUDY:NR MRI BRAIN WO; NR MRA HEAD W/O C; NR MRA NECK WO.C; 09/06/2017 12:00pm INDICATION:Signs/Symptoms: Recent fall, CHI, stroke symptoms- evaluate for acutestroke; ALTERED MENTAL STATUS. Stroke protocol. COMPARISON: CT head from 09/05/2017 [id number]; [id number] ORDERING CLINICIAN:ALTAGRACIA GOODMAN TECHNIQUE:Axial T2, FLAIR, DWI and sagittal and coronal T1 weighted images ofbrain were acquired. T0 axial gradient echo T2 imaging was alsoperformed. Jqdm-yc-posumr MRA of the head and neck was [...] MRA neck. The study was interpreted at [facility].Electronically signed by: TOLU MARTINEZ MD Normal [facility] TSHon 09-06-2017 Thyrotropin Qn 2.11 m[IU]/L Normal 0.44 - 3.98 [facility] Comment on above: Result Comment: TSH testing is performed using different testing methodology at [facility] than at other [facility]. Direct result comparisons should only be made within the same method. Performed By: #### T SH2 ####[id number] [place] [address] VITAMIN B12on 09-06-2017 Cobalamin (Vitamin B12) mass conc 770 pg/mL Normal 211 - 911 [facility] Comment on above: Performed By: #### V TB12 ####[id number] [place] [address] VITAMIN D, 25-HYDROXYon 08-10 VITAMIN D, 25-HYDROXY 19 ng/mL Abnormal [facility] Comment on above: Result Comment: .DEF ICIENCY: < 20 NG/MLINSUFFICIENCY: 20-29 NG/MLOPTIMUM LEVEL: 30-80 NG/MLPOSSIBLE TOXICITY: > 80 NG/MLTHIS ASSAY ACCURATELY QUANTIFIES THE SUM OFVITAMIN D3, 25-HYDROXY AND VIT D2,25-HYDROXY. Performed By: #### V TDOH ####[id number] [place] [address] Admission Risk Screen - Adul ton 09-05-2017 [...] Spiritual Screen:? Are there any cultural, spiritual, samaritan practices/values/needs that areimportant for us to know?unable to assess CAGE:Is this an injured patient at a Trauma Center ([facility] [place]): no Vaccinations:Vaccination - Influenza Vaccination Screen:? Is [...] 05-Sep-2017 06:29 by Shira Chaidez (RN) Normal [facility] BASIC METABOLIC PANELon 07-2 Anion gap 3 molar conc 11 mmol/L Normal 10 - 20 [facility] Comment on above: Performed By: #### B MP ####[facility] [id number] [place] [address] Calcium mass conc 8.9 mg/dL Normal 8.6 - 10.3 [facility] Comment on above: Performed By: #### B MP ####[facility] [id number] [facility] [place] [place] [address] Chloride molar conc 104 mmol/L Normal 98 - 107 [facility] Comment on above: Performed By: #### B MP ####[facility] [id number] [place] [address] Creatinine mass conc 0.75 mg/dL Normal 0.50 - 1.05 [facility] Comment on above: Performed By: #### B MP ####[facility] [id number] [place] [address] GFR- AM. >60 Normal >60 [facility] Comment on above: Result Comment: CALC ULATIONS OF ESTIMATED GFR ARE PERFORMED USING THE MDRD STUDY EQUATION FOR THE IDMS-TRACEABLE CREATININE METHODS. CLIN CHEM 2007;53:766-72 Performed By: #### B MP ####[facility] [id number] [place] [address] GFR-NON AM. >60 Normal >60 [facility] Comment on above: Performed By: #### B MP ####[facility] [id number] [place] [address] Glucose mass conc 111 mg/dL High 74 - 99 [facility] Comment on above: Performed By: #### B MP ####[facility] [id number] [place] [address] HCO3 molar conc (Bld) 26 mmol/L Normal 21 - 32 [facility] Comment on above: Performed By: #### B MP ####[facility] [id number] [place] [address] Potassium molar conc 3.2 mmol/L Low 3.5 - 5.3 [facility] Comment on above: Performed By: #### B MP ####[facility] [id number] [place] [address] Sodium molar conc 138 mmol/L Normal 136 - 145 [facility] Comment on above: Performed By: #### B MP ####[facility] [id number] [place] [address] Urea nitrogen mass conc 11 mg/dL Normal 6 - 23 [facility] Comment on above: Performed By: #### B MP ####[facility] [id number] [place] [address] BLOOD CULTURE, BACTERIALon 0 09-05-2017 BLOOD CULTURE, BACTERIAL PATIENT: KATHERINE JUDGE LOCATION: [address]#: [id number] : [birth year] AGE: SEX: F ORDERED BY: LOTUS VANCE: Blood COLLECTED: 09/05/17 01:49ANTIBIOTICS AT ESDRAS.: RECEIVED : 09/05/17 11:22SITE: PERIPHERAL R E S U L T S BLOOD CULTURE, BACTERIAL FINAL 09/10/17 11:42 No Growth at 1 days No Growth at 2 days No Growth at 3 days No Growth at 4 days NO GROWTH - FINAL REPORT Normal [facility] Comment on above: Performed By: #### L IPID ####[id number] [place] [address] BLOOD CULTURE, BACTERIAL PATIENT: KATHERINE JDUGE LOCATION: [address]#: [id number] : [birth year] AGE: SEX: F ORDERED BY: LOTUS VANCE: Blood COLLECTED: 09/05/17 01:49ANTIBIOTICS AT ESDRAS.: RECEIVED : 09/05/17 11:22SITE: PERIPHERAL R E S U L T S BLOOD CULTURE, BACTERIAL FINAL 09/10/17 11:42 No Growth at 1 days No Growth at 2 days No Growth at 3 days No Growth at 4 days NO GROWTH - FINAL REPORT Normal [facility] Comment on above: Performed By: #### L IPID ####[id number] [place] [address] CBCon 09-05-2017 Erythrocyte distribution width Auto Ratio (RBC) 15.5 % High 11.5 - 14.5 [facility] Comment on above: Performed By: #### C BC ####[facility] [id number] [place] [address] Hematocrit Auto Volume Fraction (Bld) 27.1 % Low 36.0 - 46.0 [facility] Comment on above: Performed By: #### C BC ####[facility] [id number] [facility] [place] [address] Hemoglobin mass conc (Bld) 8.5 g/dL Low 12.0 - 16.0 [facility] Comment on above: Performed By: #### C BC ####[facility] [id number] [place] [address] MCHC Auto mass conc (RBC) 31.4 g/dL Low 32.0 - 36.0 [facility] Comment on above: Performed By: #### C BC ####[facility] [id number] [place] [address] MCV Auto Entitic volume (RBC) 100 fL Normal 80 - 100 [facility] Comment on above: Performed By: #### C BC ####[facility] [id number] [place] [address] Platelets Auto #/vol (Bld) 359 10*3/uL Normal 150 - 450 [facility] Comment on above: Performed By: #### C BC ####[facility] [id number] [place] [address] RBC Auto #/vol (Bld) 2.72 x10E12/L Low 4.00 - 5.20 [facility] Comment on above: Performed By: #### C BC ####[facility] [id number] [place] [address] WBC Auto #/vol (Bld) 10.6 10*3/uL Normal 4.4 - 11.3 [facility] Comment on above: Performed By: #### C BC ####[id number] [place] [address] CBC AND DIFFERENTIALon 09-05 % AUTOMATED IMMATURE GRAN 0.5 % Normal 0.0 - 0.9 [facility] Comment on above: Result Comment: Perc ent differential counts (%) should be interpreted in the context of the absolute cell counts (cells/L). Performed By: #### L IPID ####[address] [address] % NEUTROPHIL 70.6 % Normal 40.0 - 80.0 [facility] Comment on above: Performed By: #### L IPID ####[address] [address] Basophils/100 WBC Auto (Bld) 0.04 x10E9/L Normal 0.00 - 0.10 [facility] Comment on above: Performed By: #### L IPID ####[address] [address] Basophils/100 WBC Auto (Bld) 0.3 % Normal 0.0 - 2.0 [facility] Comment on above: Performed By: #### L IPID ####[address] [address] Eosinophils Auto #/vol (Bld) 0.13 10*3/uL Normal 0.00 - 0.40 [facility] Comment on above: Performed By: #### L IPID ####[address] [address] Eosinophils/100 WBC Auto (Bld) 1.1 % Normal 0.0 - 6.0 [facility] Comment on above: Performed By: #### L IPID ####[address] [address] Erythrocyte distribution width Auto Ratio (RBC) 15.3 % High 11.5 - 14.5 [facility] Comment on above: Performed By: #### L IPID ####[address] [address] Hematocrit Auto Volume Fraction (Bld) 25.6 % Low 36.0 - 46.0 [facility] Comment on above: Performed By: #### L IPID ####[address] [address] Hemoglobin mass conc (Bld) 8.4 g/dL Low 12.0 - 16.0 [facility] Comment on above: Performed By: #### L IPID ####[address] [address] Lymphocytes Auto #/vol (Bld) 2.55 10*3/uL Normal 0.80 - 3.00 [facility] Comment on above: Performed By: #### L IPID ####[address] [address] Lymphocytes/100 WBC Auto (Bld) 21.6 % Normal 13.0 - 44.0 [facility] Comment on above: Performed By: #### L IPID ####[address] [address] MCHC Auto mass conc (RBC) 32.8 g/dL Normal 32.0 - 36.0 [facility] Comment on above: Performed By: #### L IPID ####[id number] [place] [address] MCV Auto Entitic volume (RBC) 100 fL Normal 80 - 100 [facility] Comment on above: Performed By: #### L IPID ####[address] [place] [address] Monocytes Auto #/vol (Bld) 0.70 10*3/uL Normal 0.05 - 0.80 [facility] Comment on above: Performed By: #### L IPID ####[address] [address] Monocytes/100 WBC Auto (Bld) 5.9 % Normal 2.0 - 10.0 [facility] Comment on above: Performed By: #### L IPID ####[address] [address] Neutrophils Auto #/vol (Bld) 8.31 10*3/uL High 1.60 - 5.50 [facility] Comment on above: Performed By: #### L IPID ####[address] [address] Platelets Auto #/vol (Bld) 422 10*3/uL Normal 150 - 450 [facility] Comment on above: Performed By: #### L IPID ####[address] [address] RBC Auto #/vol (Bld) 2.56 x10E12/L Low 4.00 - 5.20 [facility] Comment on above: Performed By: #### L IPID ####[address] [address] WBC Auto #/vol (Bld) 11.8 10*3/uL High 4.4 - 11.3 [facility] Comment on above: Performed By: #### L IPID ####[address] [address] CHEST 1 VIEWon 09-05-2017 CHEST 1 VIEW [...] hernia.Electronically signed by: CAMILLE VELÁZQUEZ MD Normal [facility] COMPREHENSIVE PANELon 2017 Albumin mass conc 3.3 g/dL Low 3.4 - 5.0 [facility] Comment on above: Performed By: #### L IPID ####[address] [address] ALP enzyme act/vol 95 U/L Normal 33 - 136 [facility] Comment on above: Performed By: #### L IPID ####[address] [address] ALT enzyme act/vol 16 U/L Normal 7 - 45 [facility] Comment on above: Result Comment: Daniel ents treated with Sulfasalazine may generate falsely decreased results for ALT. Performed By: #### L IPID ####[address] [address] Anion gap 3 molar conc 14 mmol/L Normal 10 - 20 [facility] Comment on above: Performed By: #### L IPID ####[address] [address] AST enzyme act/vol 19 U/L Normal 9 - 39 [facility] Comment on above: Performed By: #### L IPID ####[address] [place] [address] Bilirubin mass conc 0.4 mg/dL Normal 0.0 - 1.2 [facility] Comment on above: Performed By: #### L IPID ####[address] [place] [address] Calcium mass conc 9.2 mg/dL Normal 8.6 - 10.3 [facility] Comment on above: Performed By: #### L IPID ####[address] [place] [address] Chloride molar conc 99 mmol/L Normal 98 - 107 [facility] Comment on above: Performed By: #### L IPID ####[address] [address] Creatinine mass conc 0.99 mg/dL Normal 0.50 - 1.05 [facility] Comment on above: Performed By: #### L IPID ####[address] [address] GFR- AM. 65 mL/min/1.73m2 Normal >60 [facility] Comment on above: Result Comment: CALC ULATIONS OF ESTIMATED GFR ARE PERFORMED USING THE MDRD STUDY EQUATION FOR THE IDMS-TRACEABLE CREATININE METHODS. CLIN CHEM 2007;53:766-72 Performed By: #### L IPID ####[address] [address] GFR-NON AM. 54 mL/min/1.73m2 Abnormal >60 [facility] Comment on above: Performed By: #### L IPID ####[address] [address] Glucose mass conc 94 mg/dL Normal 74 - 99 [facility] Comment on above: Performed By: #### L IPID ####[address] [address] HCO3 molar conc (Bld) 28 mmol/L Normal 21 - 32 [facility] Comment on above: Performed By: #### L IPID ####[address] [address] Potassium molar conc 3.4 mmol/L Low 3.5 - 5.3 [facility] Comment on above: Performed By: #### L IPID ####[address] [address] Protein mass conc 6.9 g/dL Normal 6.4 - 8.2 [facility] Comment on above: Performed By: #### L IPID ####[address] [address] Sodium molar conc 138 mmol/L Normal 136 - 145 [facility] Comment on above: Performed By: #### L IPID ####[facility] [place] [address] Urea nitrogen mass conc 16 mg/dL Normal 6 - 23 [facility] Comment on above: Performed By: #### L IPID ####[facility] [place] [address] CT HEAD WO CONTRASTon 2017 CT HEAD [...] changes.Electronically signed by: CAMILLE VELÁZQUEZ MD Normal [facility] Consult - Neuroon 09-05-2017 Consult - Neuro Service:Consult:Cons ult requested by (Attending Name): Dr. Abraham: Syncope History of Present Illness:HPI:This is a 82 year old woman, poor historian, amnestic for her fall,unwitnessed, resulting in a CHI, resulting in a left forehead contusion, shewas found on the floor. She was recently discharged from this hospital on [id number] after management ofa SBO. She has had FTT, repeated abdominal surgeries. PMH: CAD, depression,anemia. Nursing tells me that she has had visual hallucinations: reaching forthings she apparently sees in the air. 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 PMH, PSH, SH, and FH were reviewed [...] Confusion? Restoril: Confusion Objective: Objective Information: T [id number]/92D ate/Time09/05 6: 6: 6: 6:16Range(36.7C - 36.7C [...] exam was normal. In both upper extremities, aocpbw-dvmy-ujaqvmuob intact without dysmetria or overshoot.In both lower extremities, njxr-ov-rldl was intact. DONALD were intact in bothupper [...] Urine STRAW Reference Range: STRAW,YELLOWAppearance, Urine CLEARSpecific [place], Urine 1.005pH, Urine 6.0Protein, Urine NEGATIVEGlucose, Urine [...] Last Updated: 05-Sep-2017 12:10 by Altagracia Nicolas) [facility] Discharge Planning Noteon Discharge Planning Note Discharge Needs Assessment:? Discharge Planning Assessment [id number]? Discharge Planning Assessment Completed byMeghan Haro RN-BC? Readmission Within the Last 30 Daysprevious discharge plan unsuccessful? Primary Care Physician Hugo Adult Information:? Reason for Admission as Stated by PatientAMS? Primary Support Person During Hospitalizationdontae Schuler ? Lives Withspouse? Financial Concernsnone Other Factors:? Functional Screen: In the recent/past 2-4 weeks, patient or family havenoticeda significant change in speech or language(1) Discharge Planning:Discharge Plannin09/05/17 From [facility]. Just d/c from [facility] 09/03/17, had small bowelobstruction. Unwitnessed fall, change in mental status, confused. Shouldreturn to SNF when medically stable. Will follow pt through hospital stay andadjust plan as needed. Meghan Haro RN-BC 09/07/17 1054 DSC: Return SNF referral sent to [facility] awaiting response.Olga Lehman Discharge Oncology Nurse Navigator [phone] 09/07/17 1139 DSC: Response received from following [facility] facilities:[facility] has accepted patient. Olga Lehman Discharge SupportCoordinator [phone] 09/08/17 1131 DSC: No 7000 needed, final orders attached and sent to facility.Olga Lehman Discharge Oncology Nurse Navigator [phone] 09/08/17 late entry PCN: Chute Loader/Patroller notified transportset for 1300 lemon picker, via wheelchair with [facility] providingtransport. Keyana Haro, Editing Intern, Final Disposition/Discharge:Dispos ition/Discharge Information: Discharge/Transfer Information:? Discharge/Transfer Date/[id number] 13:00? Discharge Modewheelchair? Transportation Methodtransportation service? Valuables/Medications/Belong [...] Screen - Adult 09/05/2017 6:24 AM Normal [facility] History and Physicalon 09-05 History and Physical History of Present Illness:Admission Reason: Acute encephalopathyHPI:82-year-ol d female with a past medical history of failure to thrive,gastrocutaneous fistula, constipation, ileus, small bowel obstruction,transient ischemic colitis, anemia, protein calorie malnutrition, hypokalemia,hypomagnesemia and colitis was admitted from the [facility] emergency room due toaltered mental status. Patient has had multiple abdominal surgeries in [facility]. She was recently discharged from the hospital [...] Confusion? Restoril: Confusion Objective: Objective Information: T [id number]/92D ate/Time09/05 6: 6: 6: 6:16Range(36.7C - 36.7C [...] Urine STRAW Reference Range: STRAW,YELLOWAppearance, Urine CLEARSpecific [place], Urine 1.005pH, Urine 6.0Protein, Urine NEGATIVEGlucose, Urine [...] hypokalemia,hypomagnesemia and colitis was admitted from the [facility] emergency room due toaltered mental status. Acute [...] prophylaxis-Lovenox CODE STATUS: DO NOT RESUSCITATE [facility] halfway records. Signatures/Attestation/Certi fication:Attending Provider ? Inpatient Certification StatementN/A - observationpatient/other outpatient visits Electronic Signatures:Flako Goodman) (Signed 05-Sep-2017 07:49)Authored: History of Present Illness, Comorbidities, Allergies, Objective,Assessment and Plan, Signatures/Attestation/Certi fication Last Updated: 05-Sep-2017 07:49 by Flako Goodman) Normal [facility] LACTATEon 09-05-2017 Lactate molar conc 1.0 mmol/L Normal 0.4 - 2.0 [facility] Comment on above: Result Comment: Hali puncture immediately after or during the administration of Metamizole may lead to falsely low results. Testing should be performed immediately prior to Metamizole dosing. Performed By: #### L IPID ####[id number] [place] [address] PT/INRon 09-05-2017 INR Coag RelTime (PPP) 1.1 {INR} Normal 0.9 - 1.1 [facility] Comment on above: Performed By: #### L IPID ####[facility] [place] [address] Prothrombin time (PT) Coag time (PPP) 11.5 s Normal 9.8 - 12.7 [facility] Comment on above: Performed By: #### L IPID ####[facility] [place] [address] Patient Profile - Adult v2on 09-05-2017 Protein mass conc Profile:Initial Info :How to be AddressedAlice(1)Spoken Language PreferredEnglish (2)Source of InformationpatientAre you currently using the Personal Electronic Health Record or Matchbin(1)Stated Reason for Admissionunable to respond appropriately.Arrived Fromemergency departmentPatient BelongingsnoneMedications Brought to [facility]:Weight in kg43.8 kilogram(s)Weight [...] Triage - ED 09/05/2017 12:33 AM Normal [facility] Provider Note - ED v2on 07-2 Protein mass conc Provider Note - ED v 2:Chart Review: ED NOTESED NOTES: 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 2 days ago she has been onnursing [...] for evaluation. Patient herself cannot provide history. Patient'[facility] care physician Dr. royal was kind [...] oral tabletInstructions: 1 tab(s) orally once a sffP-T-Vw-F-Sa Drug Name: tiZANidine 2 mg oral tabletInstructions: [...] difficile toxin (C-Diff) Additional Notes:came with ( [facility]) Status:Active Description:Methicillin-Resi stant Staph Aureus (MRSA) Additional Notes:sputum Status:Active Description:Clostridium difficile toxin (C-Diff) Status:Active Other Description:Narcotic Use Status:Active Description:Family spokesperson Additional Notes: CARLOS [phone] BROTHER RYLAND [phone] Status:Active Past Medical History Description:colitis Status:Active Description:mitral [...] Urine STRAW Reference Range: STRAW,YELLOWAppearance, Urine CLEARSpecific [place], Urine 1.005pH, Urine 6.0Protein, Urine NEGATIVEGlucose, Urine [...] 2:52AM] VITAL SIGNS: T PRBP SpO2O2(LPM) %FiO2 Pfntmo67-Rlf-6070 02:42:00-36.45349440/62 92 room air, no lxmvxhunndiencqoxk24-Fke-278 8 00:33:00-36.79157857/75 94 room air, no respiratorysupport EKG INTERPRETATION:EKG Date/Time: 05-Sep-2017 00:34Rate: 83Comments: Sinus rhythm rate of 83. No acute ST segment elevation. Rightbundle-branch block. T-wave abnormality involving the inferior leads, inferiorischemia. Portable. Abnormal EKG. No prior EKG to compare to MEDICAL DECISION MAKING/ED COURSEMDM/ED COURSE: Patient was sent to the emergency room by Dr. Renee with advised to transferpatient to use at [facility].Also discussed case with Anyi Gusman he want patient to be transferred to [facility]. Dr. Michelle accepted patient transferred to at [facility]. Shows power of workers compensation attorney was not available and I will, Patient'sBrother Came andPatient Transfer Paperwork and Agree with the Transfer to the [facility]. CLINICAL IMPRESSIONDiagnosis/Annotati on: ED Dx Name:Altered mental status Code:R41.82 Name:Closed head injury Code:S09.90XA Name:Fall at halfway Code:W19.XXXA Dispostion: transferred Time of First Call for Transfer: 04:00[facility]: 04:20Consulting Physician Name: Dr. Miguel Angel M.D.Transfer Accepted: yes ATTESTATION CRITICAL CARE TIMEIs this a critically ill patient?: no Electronic Signatures:Maria A Vance) (Signed 05-Sep-2017 04:43)Authored: Provider Note - ED v2 Last Updated: 05-Sep-2017 04:43 by Maria A Vance) References:1. Data Referenced From Triage - ED 09/05/2017 12:33 AM Normal [facility] RED CELL MORPHOLOGYon 2017 HYPOCHROMASIA Mild Normal [facility] Comment on above: Performed By: #### L IPID ####[facility] [place] [address] RBC morphology finding Nom (Bld) See Below Normal [facility] Comment on above: Performed By: #### L IPID ####[facility] [place] [address] TROPONIN Ion 09-05-2017 Troponin I.cardiac mass conc 0.02 ng/mL Normal 0.00 - 0.03 [facility] Comment on above: Result Comment: [...] testing is performed using differenttesting methodology at [facility] than at [facility]. Direct result comparisons should onlybe made within the same method. Performed By: #### T ROP2 ####[address] [address] Troponin I.cardiac mass conc 0.02 ng/mL Normal 0.00 - 0.03 [facility] Comment on above: Result Comment: [...] testing is performed using differenttesting methodology at [facility] than at [facility]. Direct result comparisons should onlybe made within the same method. Performed By: #### T ROP2 ####[address] [address] Troponin I.cardiac mass conc 0.02 ng/mL Normal 0.00 - 0.03 [facility] Comment on above: Result [...] testing is performed using differenttesting methodology at [facility] than at [facility]. Direct result comparisons should onlybe made within the same method. Performed By: #### L IPID ####[facility] [place] [address] Triage - EDon 09-05-2017 Triage - ED Quick Triage:The pat ient and/or guardian verbally acknowledges placement for services intothe following (when Urgent Care Service hours are operating):emergencydepartme nt Pain:Pain Rating (0-10): Rest3 Chart Review: CHIEF COMPLAINT KATHERINE JUDGE is a Female patient with a chief complaint of altered mentalstatus.Onset of the Complaint: [id number]-7807Hohwla Date/Time: 05-Sep-2017 00:19Vital Signs:Temperature: 97.6F ( 36.4C) taken foreheadBlood Pressure: 148/75 Mean:Heart Rate: 85Respiratory Rate: 20Pulse Oximetry: 94% Height: 5 feet 4.00 inches. 162.5 CMWeight: 120.0 pounds. 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 History: menopausePatient has suicidal thoughts: unable to assessPatient has homicidal thoughts: unable to assessESI: 2 Last Known Well: unknown PAIN Pain Scale Used: SANDOVAL ARRIVAL INFORMATION Means of Arrival: stretcher Mode of Arrival: ambulance Agency: [facility] ArrivalFrom: [facility] facility Accompanied By: EMT/paramedicLanguage:Spoken Language Preferred: Malaysian Reading Language Preferred: Malaysian PRIMARY ASSESSMENT DisabilityDisability/AVPU: KATHERINE is confusedLevel of Consciousness: disoriented to self PAST MEDICAL HISTORY Immunization History:Last Known Tetanus Immunization: Unknown TRAVEL HISTORY Travel Exposure History: NO travel to International locations in the past 30days Past Medical History:? Past Medical History Reviewedyes Electronic Signatures:Nicol Diaz (RN) (Signed 05-Sep-2017 00:56)Authored: Triage, Past Medical History Last Updated: 05-Sep-2017 00:56 by Nicol Diaz (RN) Normal [facility] URINALYSISon 09-05-2017 APPEARANCE CLEAR Normal CLEAR [facility] Comment on above: Performed By: #### L IPID ####[address] [place] [address] BILIRUBIN Negative Normal NEGATIVE [facility] Comment on above: Performed By: #### L IPID ####[facility] [place] [address] BLOOD Negative Normal NEGATIVE [facility] Comment on above: Performed By: #### L IPID ####[facility] [place] [address] COLOR STRAW Normal STRAW,YELL OW [facility] Comment on above: Performed By: #### L IPID ####[address] [place] [address] GLUCOSE Negative Normal NEGATIVE [facility] Comment on above: Performed By: #### L IPID ####[address] [place] [address] KETONES Negative Normal NEGATIVE [facility] Comment on above: Performed By: #### L IPID ####[address] [place] [address] LEUKOCYTE ESTERASE Negative Normal NEGATIVE [facility] Comment on above: Performed By: #### L IPID ####[address] [place] [address] NITRITE Negative Normal NEGATIVE [facility] Comment on above: Performed By: #### L IPID ####[address] [place] [address] pH 6.0 Normal 5.0 - 8.0 [facility] Comment on above: Performed By: #### L IPID ####[address] [place] [address] Protein mass conc Negative Normal NEGATIVE [facility] Comment on above: Performed By: #### L IPID ####[address] [place] [address] SPECIFIC GRAVITY 1.005 Normal 1.005 - 1.035 [facility] Comment on above: Performed By: #### L IPID ####[address] [place] [address] UROBILINOGEN <2.0 Normal 0.0 - 1.9 [facility] Comment on above: Performed By: #### L IPID ####[address] [address] URINE CULTURE,BACTERIALon URINE CULTURE,BACTERIAL PATIENT: KATHERINE JUDGE LOCATION: [address]#: [id number] : [birth year] AGE: SEX: F ORDERED BY: LOTUS VANCE: URINE COLLECTED: 09/05/17 01:37ANTIBIOTICS AT ESDRAS.: RECEIVED : 09/05/17 17:28SITE: Straight Cath R E S U L T S URINE CULTURE,BACTERIAL FINAL 09/06/17 09:42 NO GROWTH Normal [facility] Comment on above: Performed By: #### L IPID ####[facility] [place] [address] Daily Progress Note-Infectio us Diseaseon 09-01-2017 Protein mass conc Service: Infectious Disease Subjective Data:KATHERINE JUDGE is a 82 year old Female who is Hospital Day # 7. no fever, no emesis, no diarrhea, no rash. Overnight Events: Patient had an uneventful night. Objective Data: Objective Information:T XVJZFxO4Pyrmr92.97867315/769 4%Date/Time09/01 4: 4: 4: 4: 4:36Range(36.5C - [...] Last Updated: 01-Sep-2017 11:23 by Nela Collado) [facility] Daily Progress Note-Medicine on 09-01-2017 Protein mass conc Service: Medicine Rick bjective Data:KATHERINE JUDGE is a 82 year old Female who is Hospital Day # 7. Katherine is in doing really well. She is in high spirits, looking forward to bed/c. Her appetite has not picked up yet. Overnight Events: Patient had an uneventful night. Objective Data: Objective Information:T WZMDFgI3Jukcw86.68030577/769 4%Date/Time09/01 4: 4: 4: 4: 4:36Range(36.5C - 37.7C ) (72 - 83 ) (16 - 18 ) (134 - 150 )/ (60 - 77 ) (94%- 97% )Highest temp of 37.7 C was recorded at 08/31 14:41 Pain at Rest reported at 09/01 9:16: 7 Physical Exam: Constitutional: Frail malnourished elderly woman in [facility]: PERLENMT: mucous membranes moist, no apparent [...] laboratory results: Basic Metabolic Panel Trending View Ozhsrk55-Que-1790 08:15:00 30-Aug-2017 05:25:00Glucose, Brasu344 H 111 WXI967 139K4.0 3.3 QZC206 107Bicarbonate, Serum26 27Anion Gap, Serum9 L 8 LBUN5 L 26VTFKR6.54 0.49 LGFR-Non >60 >60GFR->60 >60Calcium, Serum8.4 L [...] 20:32NSTEMI (non-ST elevated myocardial infarction): Entered Date: 33-Oer-518104:25UTI (urinary tract infection), bacterial: Entered Date: 27-Dec-2016 [...] bowel obstruction: Onset Date: 11-Feb-2012, Entered Date: 40-Aoa-691121:56Generalized abdominal pain (finding): Entered Date: 11-Feb-2012 18:56 [...] ST Elevation Myocardial Infarction (NSTEMI): Entered Date: 56-Szr-331767:29Coronary angioplasty/stent (PCI): Entered Date: 12-Dec-2009 15:30Dyspnea: Entered [...] No melena or hematochezia. She presented to [facility] and CT of her abdomen and pelvis was read as showing findings consistentwith small bowel obstruction. She was transferred to [facility] for[facility] management. We have been consulted to [...] plan is to d/c her back to [place] today Nutrition Diagnosis:? Nutrition DiagnosisAgree with dietitian?s [...] Updated: 01-Sep-2017 12:48 by Brionna Llanes) Normal [facility] Daily Progress Note-Melly merino 09-01-2017 Protein mass conc Service: Surgery Sub jective Data:KATHERINE JUDGE is a 82 year old Female who is Hospital Day # 7. Doing well. Urinating and moving bowels, taking miralax daily.Taking PO without problem. Objective Data: Objective Information:T ZBAGDsF4Bzmor12.87305664/769 4%Date/Time09/01 4: 4: 4: 4: 4:36Range(36.5C - [...] 20:32NSTEMI (non-ST elevated myocardial infarction): Entered Date: 53-Qfu-568945:25UTI (urinary tract infection), bacterial: Entered Date: 27-Dec-2016 [...] bowel obstruction: Onset Date: 11-Feb-2012, Entered Date: 79-Ceb-503389:56Generalized abdominal pain (finding): Entered Date: 11-Feb-2012 18:56 [...] ST Elevation Myocardial Infarction (NSTEMI): Entered Date: 59-Spb-494221:29Coronary angioplasty/stent (PCI): Entered Date: 12-Dec-2009 15:30Dyspnea: Entered Date: 12-Dec-2009 12:38Coronary atherosclerosis: Entered Date: 12-Dec-2009 12:38Left heart catheterization: Entered Date: 12-Dec-2009 12:36Hypotension: Entered Date: 09-Sep-2009 15:03Sepsis: Entered Date: 01-Aug-2009 02:21Venous thromboembolism: Entered Date: 31-Jul-2009 14:57 Assessment:Okay for discharge back to [facility].Continue miralax daily.Recommend heating pad to right side to address discomfort. Signature/Cosignature/Attest ation:Attending Only - Shared Visit with Advanced Practice ProviderThis is a sharedvisit. I have reviewed the Advanced Practice Provider?s encounter note,approve the Advanced Practice Provider?s documentation, and provide thefollowing additional information from my personal encounter.Comments/ Additional Findingspartial sbo now resolved Electronic Signatures:Vanessa Rodarte (TOE FORMER STITCHDOWNS-CONDITIONING MACHINE OPERATOR) (Signed 01-Sep-2017 13:31)Authored: Service, Subjective Data, Objective Data, Assessment and Plan,Signature/Cosignature/A Jessenia Arora) (Signed 01-Sep-2017 16:03)Authored: Signature/Cosignature/Attest ation Last Updated: 01-Sep-2017 16:03 by Jessenia Tapia) Normal [facility] Discharge Effrryj8bj 07-24-2 018 Protein mass conc Discharge Orders:Ant icipated Discharge Date:? Anticipated Discharge Vyth57-Xjm-1496 Problem List: Admitting Dx:? Abdominal pain: Catalog Name: Unspecified abdominal pain Additional Dx:? Essential hypertension: Catalog Name: Essential (primary) hypertension? CAD (coronary artery disease): Catalog Name: Atherosclerotic heart diseaseof holy cross coronary artery without angina pectoris? Hypercalcemia: Catalog [...] Significant Events:CABG (2 vessel): Past Surgical History, 36-Pwi-8911Irqewts Catheterization: Past Surgical Historycataract: Past Surgical History, bilateral with lens implantappendectomy: Past Surgical History, 26 years agocomplete hysterectomy: Past Surgical History, 27 years agobilat knee replacement: Past Surgical HistoryCongestive Heart Failure (CHF): Past Medical HistoryChronic anemia: Past Medical HistoryVenous thromboembolism: Past Medical HistorySepsis: Past Medical HistoryCoronary atherosclerosis: Past Medical HistoryNon ST elevation NE: Past Medical History, 37-Sfh-6488FFV: Past Medical HistoryGERD: Past Medical HistoryUTI: Past Medical Historyumbilical hernia: Past Medical Historydiverticulitis: Past Medical Historyosteoporosis: Past Medical Historyanxiety: Past Medical Historydepression: Past Medical Historypost shingles neuropathy: Past Medical Historyhypercholesterolemia: Past Medical Historyherniated disc lumbar area: Past Medical Historyarthritis: Past Medical HistoryHypertension (HTN): Past Medical Historygi bleed: Past Medical Historymitral valve regurgitation: Past Medical Historycolitis: Past Medical HistoryFamily spokesperson: Other, CARLOS Mello [phone] BROTHERNACNY VELOZ [phone] Use: OtherClostridium difficile toxin (C-Diff): Infection Control, 60-Sjy-3338Asbnrxbbbnx difficile toxin (C-Diff): Infection Control, 27-Aug-2012, camewith ( [facility])Methicillin-Resistant Staph Aureus (MRSA): Infection Control, Mar 2012, sputum.Pneumonia- Pneumococcal polysaccharide vaccine-adult: Immunizations.Influenza- Influenza Virus: Immunizations, 19-Rhy-3985Xnheanc Information: Contacts, dontae Schuler [phone] Hospital Providers:Provider RoleProvider Name? ConsultingVentuar Thacker? ConsultingDiego Obregon? ConsultingNela Collado? Benjy Pruitt? AttendingJessenia Tapia DNAR:? DNAR Statusnone Activity:activity as tolerated. May shower. Diet:? Diet Consistency/Texturemechanica l soft Labs 1:? Lab Test(s)CBC? Date To Be Drawn1 week from discharge? Call Results [phone] Dr. Tapia? Fax Results [phone] Dr. Tapia Hospital Course (Home Care/Gold Form):Hospital [...] Therapy Orders:? Physical Therapy OrdersEval and Treat ([facility]) 3-5times/week Provider Follow Up:? Physician To Follow at Skilled/RehabAttending Physician at Skilled/Rehab Provider FINAL REVIEW of Orders:Final Review:? Final Review of Medication Reconciliation and Orders Completedby Physician? Reviewing ProviderJessenia Tapia MD at 01-Sep-2017 16:04:35 Electronic Signatures:Vanessa Rodarte (TOE FORMER STITCHDOWNS-CONDITIONING MACHINE OPERATOR) (Signed 01-Sep-2017 15:55)Authored: Discharge Orders, Hospital Course (Home Care/Gold Form), Gold FormOrders, Provider FINAL REVIEW of Orders, Gold Form - Rn Admit SummaryMaJessenia vasquez) (Signed 01-Sep-2017 16:04)Authored: Provider FINAL REVIEW of Orders Last Updated: 01-Sep-2017 16:04 by Jessenia Tapia) Normal [facility] HCTon 09-01-2017 Hematocrit Auto Volume Fraction (Bld) Canceled Normal [facility] Comment on above: Order Comment: TEST HCT WAS CANCELLED, 09/01/2017 16:14 PATIENT DISCHARGED. Performed By: #### H CT ####[id number] [address] HGBon 09-01-2017 Hemoglobin mass conc (Bld) Canceled Normal [facility] Comment on above: Order Comment: TEST HGB WAS CANCELLED, 09/01/2017 16:14 PATIENT DISCHARGED. Performed By: #### H GB ####[facility] [id number] [facility] [place] [address] BASIC METABOLIC PANELon 08-10 Anion gap 3 molar conc 9 mmol/L Low 10 - 20 [facility] Comment on above: Performed By: #### B MP ####[facility] [id number] [facility] [place] [address] Calcium mass conc 8.4 mg/dL Low 8.6 - 10.3 [facility] Comment on above: Performed By: #### B MP ####[facility] [id number] [place] [address] Chloride molar conc 106 mmol/L Normal 98 - 107 [facility] Comment on above: Performed By: #### B MP ####[facility] [id number] [place] [address] Creatinine mass conc 0.54 mg/dL Normal 0.50 - 1.05 [facility] Comment on above: Performed By: #### B MP ####[facility] [id number] [place] [address] GFR- AM. >60 Normal >60 [facility] Comment on above: Result Comment: CALC ULATIONS OF ESTIMATED GFR ARE PERFORMED USING THE MDRD STUDY EQUATION FOR THE IDMS-TRACEABLE CREATININE METHODS. CLIN CHEM 2007;53:766-72 Performed By: #### B MP ####[facility] [id number] [place] [address] GFR-NON AM. >60 Normal >60 [facility] Comment on above: Performed By: #### B MP ####[facility] [id number] [place] [address] Glucose mass conc 113 mg/dL High 74 - 99 [facility] Comment on above: Performed By: #### B MP ####[facility] [id number] [place] [address] HCO3 molar conc (Bld) 26 mmol/L Normal 21 - 32 [facility] Comment on above: Performed By: #### B MP ####[facility] [id number] [place] [address] Potassium molar conc 4.0 mmol/L Normal 3.5 - 5.3 [facility] Comment on above: Performed By: #### B MP ####[facility] [id number] [place] [address] Sodium molar conc 137 mmol/L Normal 136 - 145 [facility] Comment on above: Performed By: #### B MP ####[facility] [id number] [place] [address] Urea nitrogen mass conc 5 mg/dL Low 6 - 23 [facility] Comment on above: Performed By: #### B MP ####[facility] [id number] [place] [address] Daily Progress Note-Infectio us Diseaseon 08-31-2017 Protein mass conc Service: Infectious Disease Subjective Data:KATHERINE JUDGE is a 82 year old Female who is Hospital Day # 6. no fever, no emesis, no diarrhea, no sob, able to eat. Overnight Events: Patient had an uneventful night. Objective Data: Objective Information:T QDRQPnA8Zgxis81.04118379/649 5%Date/Time08/31 5: 5: 5: 5: 5:00Range(36.5C - [...] Last Updated: 31-Aug-2017 10:30 by Nela Collado) [facility] Daily Progress Note-Medicine on 08-31-2017 Protein mass conc Service: Medicine Rick bjective Data:KATHERINE UJDGE is a 82 year old Female who is Hospital Day # 6. Katherine is in doing really well. She is in high spirits, looking forward to bed/c. Her appetite has not picked up yet. Overnight Events: Patient had an uneventful night. Objective Data: Objective Information:T NTWVRtQ5Wojbz82.82130936/649 5%Date/Time08/31 5: 5: 5: 5: 5:00Range(36.5C - 37.4C ) (61 - 101 ) (18 - 18 ) (146 - 160 )/ (64 - 79 )(95% - 96% )Highest temp of 37.4 C was recorded at 08/30 14:04 Pain at Rest reported at 08/31 10:30: 7 Physical Exam: Constitutional: Frail malnourished elderly woman in [facility]: PERLENMT: mucous membranes moist, no apparent [...] laboratory results: Basic Metabolic Panel Trending View Suwgik69-Huw-5947 08:15:00 30-Aug-2017 05:25:00Glucose, Xkmhn714 H 111 VIU609 139K4.0 3.3 QUU404 107Bicarbonate, Serum26 27Anion Gap, Serum9 L 8 LBUN5 L 16MAAQS5.54 0.49 LGFR-Non >60 >60GFR->60 >60Calcium, Serum8.4 L 8.1 L Assessment and Plan:Assessment:82-year-old woman with history of multiple abdominal surgeries who was in herusual state of health when she developed nausea later followed by vomiting,abdominal distention and abdominal pain. She denied fever, chills, sweats. Nodiarrhea. No melena or hematochezia. She presented to [facility] and CT of her abdomen and pelvis was read as showing findings consistentwith small bowel obstruction. She was [facility]. We have been consulted to [...] plan is to d/c her back to [place] tomorrow. Nutrition Diagnosis:? Nutrition DiagnosisAgree with dietitian?s [...] 12:51 by Maria Del Carmen Andino) Normal [facility] Daily Progress Note-Surgeryo n 08-31-2017 Protein mass conc Consult Type: subseq uent visit/care Service: Surgery Subjective Data:KATHERINE JUDGE is a 82 year old Female who is Hospital Day # 6. No voiced c/o. Overnight Events: Patient had an uneventful night. Objective Data: Objective Information:T CCTYOpQ4Vroui01.95930439/649 5%Date/Time08/31 5: 5: 5: 5: 5:00Range(36.5C - [...] 20:32NSTEMI (non-ST elevated myocardial infarction): Entered Date: 69-Zbz-772735:25UTI (urinary tract infection), bacterial: Entered Date: 27-Dec-2016 [...] bowel obstruction: Onset Date: 11-Feb-2012, Entered Date: 94-Xgw-166105:56Generalized abdominal pain (finding): Entered Date: 11-Feb-2012 18:56 [...] ST Elevation Myocardial Infarction (NSTEMI): Entered Date: 22-Wrk-437362:29Coronary angioplasty/stent (PCI): Entered Date: 12-Dec-2009 15:30Dyspnea: Entered [...] Findingsadv dietkeep on miralax Electronic Signatures:Vanessa Rodarte (TOE FORMER STITCHDOWNS-CONDITIONING MACHINE OPERATOR) (Signed 31-Aug-2017 10:30)Authored: Service, Subjective Data, Objective Data, Assessment and Plan,Signature/Cosignature/A ttestationMaJessenia vasquez) (Signed 31-Aug-2017 10:35)Authored: Signature/Cosignature/Attest ation Last Updated: 31-Aug-2017 10:35 by Jessenia Tapia) [facility] Nutrition Therapy-Assessment on 08-31-2017 Nutrition Therapy-Assessment Assessment Subjective/Objective:Note Type: Assessment Note Authored by: Registered Dietitian NutritionistPager Number: [phone] Nutrition Note:The patient is a 82 year [...] bowel obstruction (disorder):Acute bowel obstruction: Onset Date: 44-Nyy-7723Qpmrotekwuq abdominal pain (finding): Chronic:Fluid overload pulmonary edema:Clostridium difficile infection:Chest pain:Diarrhea: Other Dx/Proc:CHEST PAIN: Description: CHEST PAINUnstable angina/chest pain: Description: Unstable angina/chest painGastrointestinal bleeding: Description: Gastrointestinal bleeding1 Colitis, 2 Abdomen Pain 3 Cholelithiasis: Onset Date: 03-Tez-4067Cpxxf failure: Description: Heart failurePNEUMONIA:Diabetes mellitus: Description: Diabetes [...] bowel obstruction (disorder):Acute bowel obstruction: Onset Date: 13-Dgj-7682Zsvamncyslj abdominal pain (finding):Acute bowel obstruction:Acute bowel obstruction: Objective Information: T IDJCPxJ5Rxdsc59.67140596/649 5%Date/Time08/31 5: 5: 5: 5: 5:00Range(36.5C - 37.4C ) (61 - 101 ) (18 - 18 ) (146 - 160 )/ (64 - 79 )(95% - 96% )Highest temp of 37.4 C was recorded at 08/30 14:04 Pain at Rest reported at 08/31 10:30: 7 ---- Intake and Output -----Mn/Dy/Year TimeIntakeOutputNetJu 2017 6:00 [id number] 2017 10:00 ns496Awc 2017 2:00 [id number] The Intake and Output Totals for the last 24 hours are:UdsdaaBebrjfUsq6589qzgmm ull Intake Output Enteral - Oral 360 [...] laboratory results: Basic Metabolic Panel Trending View Ttaotw05-Upk-7210 08:15:00 30-Aug-2017 05:25:00Glucose, Nczeo915 H 111 UOY805 139K4.0 3.3 RLG193 107Bicarbonate, Serum26 27Anion Gap, Serum9 L 8 LBUN5 L 48GMLJM9.54 0.49 LGFR-Non >60 >60GFR->60 >60Calcium, Serum8.4 L 8.1 L Nutrition Labs:Special Chemistry: 03-Jul-2017 10:15, Hemoglobin J7ISiuxhmbhrp A1C, Level5.3 Diagnosis of Diabetes-Adults Non-Diabetic: < or = 5.6% Increased risk for developing diabetes: 5.7-6.4% Diagnostic of diabetes: > or = 6.5%. Monitoring of Diabetes Age (y) Therapeutic Goal (%) Adults: >18 <7.0 Pediatrics: 13-18 <7.5 7-12 <8.0 0- 6 7.5-8.5 [place] [employer]. Diabetes Care 33(S1), Feb 2009.Estimated Average Zduamxd193 Current Active Medications/PN:Ondansetron Injectable, (ZOFRAN)DOSE = 4 mg IntraVenous Push Every 4 Hours, PRN Nausea, 72-Qxc-2229Akroipxlq 5% TransDermal, Film (LIDODERM)DOSE = 1 patch TransDermal Every 24 Hours, 62-Xam-4954Ayezqpsgqv Mononitrate Extended Release, Tablet, Extended Release (IMDUR)DOSE = 60 mg Oral At Bedtime, 71-Krf-8863Jnnfyauyaj, Tablet (PRINIVIL, ZESTRIL)DOSE = 10 mg Oral Daily, 91-Lqy-2704Opiumzzspo Tartrate, Tablet (LOPRESSOR)DOSE = 50 mg Oral Every 12 Hours, 26-Xmx-6830tnoLNZDAB 5 mg - Acetaminophen 325 mg, Tablet (PERCOCET)DOSE = 1 tablet(s) Oral Every 4 Hours, PRN Pain - Severe (7-10), 70-Ddd-8126Kqojomaevgmi, Enteric Coated Tablet (PROTONIX)DOSE = 40 mg Oral Daily, 80-Dru-5916Cxhshfmuotid Glycol, Powder for Reconstitution (MIRALAX)DOSE = 17 gram(s) Oral Daily, 31-Aug-2017 Nutrition Orders:May Participate in Room Service, YesOrder entered from Admission Screens., 65-Jby-6536Kdnq Nutritional Supplements, RoutineBoost PuddingFlavor Preference: Vanilla, 2 Times a DaySpecial Instructions: Please send wtih lunch and dinner.AFTERNOON SNACK:Please send pt fresh fruit and cheese for afternoon snack. Thank you!,22-Pta-7850Uefc, Mechanical Soft, 31-Aug-2017 Food/Nutrition Related History:Change in [...] 11:26 by Mikie May (DEEPA HENRIQUEZ) Normal [facility] BASIC METABOLIC PANELon 07-2 Anion gap 3 molar conc 8 mmol/L Low 10 - 20 [facility] Comment on above: Performed By: #### B MP ####[facility] [id number] [place] [address] Calcium mass conc 8.1 mg/dL Low 8.6 - 10.3 [facility] Comment on above: Performed By: #### B MP ####[facility] [id number] [address] [place] [address] Chloride molar conc 107 mmol/L Normal 98 - 107 [facility] Comment on above: Performed By: #### B MP ####[facility] [id number] [place] [address] Creatinine mass conc 0.49 mg/dL Low 0.50 - 1.05 [facility] Comment on above: Performed By: #### B MP ####[facility] [id number] [place] [address] GFR- AM. >60 Normal >60 [facility] Comment on above: Result Comment: CALC ULATIONS OF ESTIMATED GFR ARE PERFORMED USING THE MDRD STUDY EQUATION FOR THE IDMS-TRACEABLE CREATININE METHODS. CLIN CHEM 2007;53:766-72 Performed By: #### B MP ####[facility] [id number] [facility] [place] [address] GFR-NON AM. >60 Normal >60 [facility] Comment on above: Performed By: #### B MP ####[facility] [id number] [place] [address] Glucose mass conc 111 mg/dL High 74 - 99 [facility] Comment on above: Performed By: #### B MP ####[facility] [id number] [place] [address] HCO3 molar conc (Bld) 27 mmol/L Normal 21 - 32 [facility] Comment on above: Performed By: #### B MP ####[facility] [id number] [place] [address] Potassium molar conc 3.3 mmol/L Low 3.5 - 5.3 [facility] Comment on above: Performed By: #### B MP ####[facility] [id number] [place] [address] Sodium molar conc 139 mmol/L Normal 136 - 145 [facility] Comment on above: Performed By: #### B MP ####[facility] [id number] [place] [address] Urea nitrogen mass conc 14 mg/dL Normal 6 - 23 [facility] Comment on above: Performed By: #### B MP ####[facility] [id number] [place] [address] CBCon 08-30-2017 Erythrocyte distribution width Auto Ratio (RBC) 14.1 % Normal 11.5 - 14.5 [facility] Comment on above: Performed By: #### C BC ####[facility] [id number] [place] [address] Hematocrit Auto Volume Fraction (Bld) 26.5 % Low 36.0 - 46.0 [facility] Comment on above: Performed By: #### C BC ####[facility] [id number] [place] [address] Hemoglobin mass conc (Bld) 8.4 g/dL Low 12.0 - 16.0 [facility] Comment on above: Performed By: #### C BC ####[facility] [id number] [place] [address] MCHC Auto mass conc (RBC) 31.7 g/dL Low 32.0 - 36.0 [facility] Comment on above: Performed By: #### C BC ####[facility] [id number] [place] [address] MCV Auto Entitic volume (RBC) 99 fL Normal 80 - 100 [facility] Comment on above: Performed By: #### C BC ####[facility] [id number] [place] [address] Platelets Auto #/vol (Bld) 272 10*3/uL Normal 150 - 450 [facility] Comment on above: Performed By: #### C BC ####[facility] [id number] [place] [address] RBC Auto #/vol (Bld) 2.67 x10E12/L Low 4.00 - 5.20 [facility] Comment on above: Performed By: #### C BC ####[facility] [id number] [place] [address] WBC Auto #/vol (Bld) 7.8 10*3/uL Normal 4.4 - 11.3 [facility] Comment on above: Performed By: #### C BC ####[facility] [id number] [place] [address] Daily Progress Note-Infectio us Diseaseon 08-30-2017 Protein mass conc Service: Infectious Disease Subjective Data:KATHERINE JUDGE is a 82 year old Female who is Hospital Day # 5. no fever, no emesis, no abdominal pain, no diarrhea, no rash. Overnight Events: Patient had an uneventful night. Objective Data: Objective Information:T TZMKIiJ6Cpuuu611355640/8197% Date/Time08/30 5: 5: 5: 5: 5:01Range(36C - [...] reviewed these laboratory results: Basic Metabolic Panel [Ytxmw40-Kpv-4875 05:25:00], Complete Blood Count [Drawn 30-Aug-2017 05:25:00],Magnesium, [...] Updated: 30-Aug-2017 11:14 by Nela Collado) Normal [facility] Daily Progress Note-Medicine on 08-30-2017 Protein mass conc Service: Medicine Rick bjective Data:KATHERINE JUDGE is a 82 year old Female who is Hospital Day # 5. Started on full liquid diet this morning, had multiple looses BMs. Overnight Events: Patient had an uneventful night. Objective Data: Objective Information:T BXEQUgN8Rdcee151771854/8197% Date/Time08/30 5: 5: 5: 5: 5:01Range(36C - [...] No melena or hematochezia. She presented to [facility] and CT of her abdomen and pelvis was read as showing findings consistentwith small bowel obstruction. She was transferred to [facility]. We have been consulted to [...] 13:18 by Maria Del Carmen Andino) Normal [facility] Daily Progress Note-Melly merino 08-30-2017 Protein mass conc Service: Surgery Sub jective Data:KATHERINE JUDGE is a 82 year old Female who is Hospital Day # 5. Overnight Events: Patient had an uneventful night. Objective Data: Objective Information:T FAKNTtH5Tawgx714174529/8197% Date/Time08/30 5: 5: 5: 5: 5:01Range(36C - [...] 20:32NSTEMI (non-ST elevated myocardial infarction): Entered Date: 74-Aku-040345:25UTI (urinary tract infection), bacterial: Entered Date: 27-Dec-2016 [...] bowel obstruction: Onset Date: 11-Feb-2012, Entered Date: 50-Ena-244374:56Generalized abdominal pain (finding): Entered Date: 11-Feb-2012 18:56 [...] ST Elevation Myocardial Infarction (NSTEMI): Entered Date: 13-Rez-926593:29Coronary angioplasty/stent (PCI): Entered Date: 12-Dec-2009 15:30Dyspnea: Entered Date: 12-Dec-2009 12:38Coronary atherosclerosis: Entered Date: 12-Dec-2009 12:38Left heart catheterization: Entered Date: 12-Dec-2009 12:36Hypotension: Entered Date: 09-Sep-2009 15:03Sepsis: Entered Date: 01-Aug-2009 02:21Venous thromboembolism: Entered Date: 31-Jul-2009 14:57 Assessment:improving adv diet slowly Electronic Signatures:Jessenia Tapia) (Signed 30-Aug-2017 11:46)Authored: Service, Subjective Data, Objective Data, Assessment and Plan,Signature/Cosignature/A ttestation Last Updated: 30-Aug-2017 11:46 by Jessenia Tapia) Normal [facility] MAGNESIUMon 08-30-2017 Magnesium mass conc 1.48 mg/dL Low 1.60 - 2.40 [facility] Comment on above: Performed By: #### M G ####[facility] [id number] [place] [address] CBCon 08-29-2017 Erythrocyte distribution width Auto Ratio (RBC) 14.0 % Normal 11.5 - 14.5 [facility] Comment on above: Performed By: #### C BC ####[facility] [id number] [place] [address] Hematocrit Auto Volume Fraction (Bld) 31.5 % Low 36.0 - 46.0 [facility] Comment on above: Performed By: #### C BC ####[facility] [id number] [place] [address] Hemoglobin mass conc (Bld) 10.0 g/dL Low 12.0 - 16.0 [facility] Comment on above: Performed By: #### C BC ####[facility] [id number] [place] [address] MCHC Auto mass conc (RBC) 31.7 g/dL Low 32.0 - 36.0 [facility] Comment on above: Performed By: #### C BC ####[facility] [id number] [place] [address] MCV Auto Entitic volume (RBC) 99 fL Normal 80 - 100 [facility] Comment on above: Performed By: #### C BC ####[facility] [id number] [place] [address] Platelets Auto #/vol (Bld) 338 10*3/uL Normal 150 - 450 [facility] Comment on above: Performed By: #### C BC ####[facility] [id number] [place] [address] RBC Auto #/vol (Bld) 3.18 x10E12/L Low 4.00 - 5.20 [facility] Comment on above: Performed By: #### C BC ####[facility] [id number] [place] [address] WBC Auto #/vol (Bld) 13.1 10*3/uL High 4.4 - 11.3 [facility] Comment on above: Performed By: #### C BC ####[facility] [id number] [place] [address] COMPREHENSIVE PANELon 2017 Albumin mass conc 3.0 g/dL Low 3.4 - 5.0 [facility] Comment on above: Performed By: #### C MP ####[facility] [id number] [place] [address] ALP enzyme act/vol 65 U/L Normal 33 - 136 [facility] Comment on above: Performed By: #### C MP ####[facility] [id number] [place] [address] ALT enzyme act/vol 14 U/L Normal 7 - 45 [facility] Comment on above: Result Comment: Daniel ents treated with Sulfasalazine may generate falsely decreased results for ALT. Performed By: #### C MP ####[facility] [id number] [place] [address] Anion gap 3 molar conc 11 mmol/L Normal 10 - 20 [facility] Comment on above: Performed By: #### C MP ####[facility] [id number] [place] [address] AST enzyme act/vol 16 U/L Normal 9 - 39 [facility] Comment on above: Performed By: #### C MP ####[facility] [id number] [place] [address] Bilirubin mass conc 0.5 mg/dL Normal 0.0 - 1.2 [facility] Comment on above: Performed By: #### C MP ####[facility] [id number] [place] [address] Calcium mass conc 8.7 mg/dL Normal 8.6 - 10.3 [facility] Comment on above: Performed By: #### C MP ####[facility] [id number] [place] [address] Chloride molar conc 105 mmol/L Normal 98 - 107 [facility] Comment on above: Performed By: #### C MP ####[facility] [id number] [place] [address] Creatinine mass conc 0.59 mg/dL Normal 0.50 - 1.05 [facility] Comment on above: Performed By: #### C MP ####[facility] [id number] [place] [address] GFR- AM. >60 Normal >60 [facility] Comment on above: Result Comment: CALC ULATIONS OF ESTIMATED GFR ARE PERFORMED USING THE MDRD STUDY EQUATION FOR THE IDMS-TRACEABLE CREATININE METHODS. CLIN CHEM 2007;53:766-72 Performed By: #### C MP ####[facility] [id number] [place] [address] GFR-NON AM. >60 Normal >60 [facility] Comment on above: Performed By: #### C MP ####[facility] [id number] [place] [address] Glucose mass conc 115 mg/dL High 74 - 99 [facility] Comment on above: Performed By: #### C MP ####[facility] [id number] [place] [address] HCO3 molar conc (Bld) 27 mmol/L Normal 21 - 32 [facility] Comment on above: Performed By: #### C MP ####[facility] [id number] [place] [address] Potassium molar conc 3.8 mmol/L Normal 3.5 - 5.3 [facility] Comment on above: Performed By: #### C MP ####[facility] [id number] [place] [address] Protein mass conc 6.5 g/dL Normal 6.4 - 8.2 [facility] Comment on above: Performed By: #### C MP ####[facility] [id number] [place] [address] Sodium molar conc 139 mmol/L Normal 136 - 145 [facility] Comment on above: Performed By: #### C MP ####[facility] [id number] [place] [address] Urea nitrogen mass conc 43 mg/dL High 6 - 23 [facility] Comment on above: Performed By: #### C MP ####[facility] [id number] [place] [address] Daily Progress Note-Infectio us Diseaseon 08-29-2017 Protein mass conc Service: Infectious Disease Subjective Data:KATHERINE JUDGE is a 82 year old Female who is Hospital Day # 4. no fever, had BM per the nurses, the hx is not reliable. Overnight Events: Patient had an uneventful night. Objective Data: Objective Information:T ECPFKdF3Liput85.895510667/75 95%Date/Time08/29 10: 10: 10: 10: 10:20Range(36.3C - [...] reviewed these laboratory results: Comprehensive Metabolic Panel [[id number] 06:05:00], Complete Blood Count [Drawn 29-Aug-2017 06:05:00],Magnesium, [...] Updated: 29-Aug-2017 10:55 by Nela Collado) Normal [facility] Daily Progress Note-Medicine on 08-29-2017 Protein mass conc Service: Medicine Rick bjective Data:KATHERINE JUDGE is a 82 year old Female who is Hospital Day # 4. Still be NPO, has not moved her bowels or had flatus. NG is out.She is more withdrawn today. Did not have a good night sleep. Objective Data: Objective Information:T [id number]/799 4%Date/Time08/29 5: 5: 5: 5: 5:55Range(36.3C - [...] No melena or hematochezia. She presented to [facility] and CT of her abdomen and pelvis was read as showing findings consistentwith small bowel obstruction. She was transferred to [facility] for[facility] management. We have been consulted to [...] 10:08 by Maria Del Carmen Andino) Normal [facility] Daily Progress Note-Surgeryo n 08-29-2017 Protein mass conc Service: Surgery Sub jective Data:KATHERINE JUDGE is a 82 year old Female who is Hospital Day # 4. Overnight Events: Patient had an uneventful night.Additional Information:pt very sleepy this amshe apparently was up all night and had multiple loose stools over night Objective Data: Objective Information:T GEULOtG9Mrrny52.944799480/75 95%Date/Time08/29 10: 10: 10: 10: 10:20Range(36.3C - [...] 20:32NSTEMI (non-ST elevated myocardial infarction): Entered Date: 44-Msb-641234:25UTI (urinary tract infection), bacterial: Entered Date: 27-Dec-2016 [...] bowel obstruction: Onset Date: 11-Feb-2012, Entered Date: 22-Yjd-361880:56Generalized abdominal pain (finding): Entered Date: 11-Feb-2012 18:56 [...] ST Elevation Myocardial Infarction (NSTEMI): Entered Date: 48-Zwu-565197:29Coronary angioplasty/stent (PCI): Entered Date: 12-Dec-2009 15:30Dyspnea: Entered Date: 12-Dec-2009 12:38Coronary atherosclerosis: Entered Date: 12-Dec-2009 12:38Left heart catheterization: Entered Date: 12-Dec-2009 12:36Hypotension: Entered Date: 09-Sep-2009 15:03Sepsis: Entered Date: 01-Aug-2009 02:21Venous thromboembolism: Entered Date: 31-Jul-2009 14:57 Assessment:resolving sbodehydrationtry clears Electronic Signatures:Jessenia Tapia) (Signed 29-Aug-2017 12:02)Authored: Service, Subjective Data, Objective Data, Assessment and Plan,Signature/Cosignature/A ttestation Last Updated: 29-Aug-2017 12:02 by Jessenia Tapia) Normal [facility] MAGNESIUMon 08-29-2017 Magnesium mass conc 1.68 mg/dL Normal 1.60 - 2.40 [facility] Comment on above: Performed By: #### M G ####[facility] [id number] [place] [address] OCCULT BLOOD TEST,STOOLon OCCULT BLOOD,STOOL Positive Abnormal Negative [facility] Comment on above: Performed By: #### O CCB1 ####[facility] [id number] [place] [address] Daily Progress Note-Infectio us Diseaseon 08-28-2017 Protein mass conc Service: Infectious Disease Subjective Data:KATHERINE JUDGE is a 82 year old Female who is Hospital Day # 3. no fever, no BM, no abdominal hall, no sob, no rash. Overnight Events: Patient had an uneventful night. Objective Data: Objective Information:T BYYQSpK7Pyezy21.55544245/739 8%Date/Time08/28 7: 7: 7: 7: 7:51Range(36.8C - [...] reviewed these laboratory results: Complete Blood Count [[id number] 06:33:00], Basic Metabolic Panel [Drawn 27-Aug-2017 06:33:00]. [...] Updated: 28-Aug-2017 09:04 by Nela Collado) Normal [facility] Daily Progress Note-Medicine on 08-28-2017 Protein mass conc Service: Medicine Rick bjective Data:KATHERINE JUDGE is a 82 year old Female who is Hospital Day # 3. Feeling ok today. Still has NG tube. After a suppository had a small BM. Doesnot pass the flatus. Objective Data: Objective Information:T TIDJAhG3Ordfc84.22144829/849 3%Date/Time08/28 12: 12: 12: 12: 12:13Range(36.7C - [...] No melena or hematochezia. She presented to [facility] and CT of her abdomen and pelvis was read as showing findings consistentwith small bowel obstruction. She was transferred to [facility] forfurther management. We have been consulted to [...] 12:43 by Maria Del Carmen Andino) Normal [facility] Daily Progress Note-Melly n 08-28-2017 Protein mass conc Service: Surgery Sub jective Data:KATHERINE JUDGE is a 82 year old Female who is Hospital Day # 3. Overnight Events: Patient had an uneventful night.Additional Information:pt had a BM with suppository Objective Data: Objective Information:T ENODWdJ2Yxwbv25.07285087/869 2%Date/Time08/28 14: 14: 14: 14: 14:55Range(36.6C - [...] 20:32NSTEMI (non-ST elevated myocardial infarction): Entered Date: 70-Aba-974801:25UTI (urinary tract infection), bacterial: Entered Date: 27-Dec-2016 [...] bowel obstruction: Onset Date: 11-Feb-2012, Entered Date: 47-Jbo-268270:56Generalized abdominal pain (finding): Entered Date: 11-Feb-2012 18:56 [...] ST Elevation Myocardial Infarction (NSTEMI): Entered Date: 99-Xaw-162968:29Coronary angioplasty/stent (PCI): Entered Date: 12-Dec-2009 15:30Dyspnea: Entered Date: 12-Dec-2009 12:38Coronary atherosclerosis: Entered Date: 12-Dec-2009 12:38Left heart catheterization: Entered Date: 12-Dec-2009 12:36Hypotension: Entered Date: 09-Sep-2009 15:03Sepsis: Entered Date: 01-Aug-2009 02:21Venous thromboembolism: Entered Date: 31-Jul-2009 14:57 Assessment:looks bettertry to d/c ngt later Electronic Signatures:Jessenia Tapia) (Signed 28-Aug-2017 15:04)Authored: Service, Subjective Data, Objective Data, Assessment and Plan,Signature/Cosignature/A ttestation Last Updated: 28-Aug-2017 15:04 by Jessenia Tapia) Normal [facility] ABDOMEN AP VIEWon 08-27-2017 ABDOMEN AP VIEW Name: KATHERINE JUDGE STUDY:TH ABDOMEN AP VIEW; 08/27/2017 9:11 am INDICATION:Signs/Symptoms: abdominal pain with nausea/vomiting. COMPARISON:07/04/2014 ORDERING CLINICIAN:VANESSA RODARTE TECHNIQUE:1 views of the abdomen FINDINGS:NG tube terminates in the gastric body. A no dilated loops of bowel.Mild scattered stool in the colon. IMPRESSION:No dilated loops of bowel.Electronically signed by: BETITO MANN MD Normal [facility] BASIC METABOLIC PANELon 08-09 Anion gap 3 molar conc 11 mmol/L Normal 10 - [facility] Comment on above: Performed By: #### B MP ####[facility] [id number] [place] [address] Calcium mass conc 9.0 mg/dL Normal 8.6 - 10.3 [facility] Comment on above: Performed By: #### B MP ####[facility] [id number] [place] [address] Chloride molar conc 97 mmol/L Low 98 - 107 [facility] Comment on above: Performed By: #### B MP ####[facility] [id number] [place] [address] Creatinine mass conc 0.54 mg/dL Normal 0.50 - 1.05 [facility] Comment on above: Performed By: #### B MP ####[facility] [id number] [place] [address] GFR- AM. >60 Normal >60 [facility] Comment on above: Result Comment: CALC ULATIONS OF ESTIMATED GFR ARE PERFORMED USING THE MDRD STUDY EQUATION FOR THE IDMS-TRACEABLE CREATININE METHODS. CLIN CHEM 2007;53:766-72 Performed By: #### B MP ####[facility] [id number] [place] [address] GFR-NON AM. >60 Normal >60 [facility] Comment on above: Performed By: #### B MP ####[facility] [id number] [place] [address] Glucose mass conc 132 mg/dL High 74 - 99 [facility] Comment on above: Performed By: #### B MP ####[facility] [id number] [place] [address] HCO3 molar conc (Bld) 38 mmol/L High 21 - 32 [facility] Comment on above: Performed By: #### B MP ####[facility] [id number] [place] [address] Potassium molar conc 3.2 mmol/L Low 3.5 - 5.3 [facility] Comment on above: Performed By: #### B MP ####[facility] [id number] [place] [address] Sodium molar conc 143 mmol/L Normal 136 - 145 [facility] Comment on above: Performed By: #### B MP ####[facility] [id number] [place] [address] Urea nitrogen mass conc 9 mg/dL Normal 6 - 23 [facility] Comment on above: Performed By: #### B MP ####[facility] [id number] [place] [address] CBCon 08-27-2017 Erythrocyte distribution width Auto Ratio (RBC) 14.2 % Normal 11.5 - 14.5 [facility] Comment on above: Performed By: #### C BC ####[facility] [id number] [place] [address] Hematocrit Auto Volume Fraction (Bld) 36.2 % Normal 36.0 - 46.0 [facility] Comment on above: Performed By: #### C BC ####[facility] [id number] [place] [address] Hemoglobin mass conc (Bld) 11.7 g/dL Low 12.0 - 16.0 [facility] Comment on above: Performed By: #### C BC ####[facility] [id number] [place] [address] MCHC Auto mass conc (RBC) 32.3 g/dL Normal 32.0 - 36.0 [facility] Comment on above: Performed By: #### C BC ####[facility] [id number] [place] [address] MCV Auto Entitic volume (RBC) 98 fL Normal 80 - 100 [facility] Comment on above: Performed By: #### C BC ####[facility] [id number] [place] [address] Platelets Auto #/vol (Bld) 323 10*3/uL Normal 150 - 450 [facility] Comment on above: Performed By: #### C BC ####[facility] [id number] [place] [address] RBC Auto #/vol (Bld) 3.70 x10E12/L Low 4.00 - 5.20 [facility] Comment on above: Performed By: #### C BC ####[facility] [id number] [place] [address] WBC Auto #/vol (Bld) 10.5 10*3/uL Normal 4.4 - 11.3 [facility] Comment on above: Performed By: #### C ####[facility] [id number] [place] [address] Daily Progress Note-Cardioemory linn 08-27-2017 Protein mass [...] an uneventful night. Objective Data: Objective Information:T IFSEJbV7Acjkx72.29292612/789 7%Date/Time08/27 14: 14: 14: 14: 14:57Range(36.7C - [...] contusions or wounds, noclubbingNeurological: alert and oriented a4Rzxxznetczsye: Appropriate mood and behaviorSkin: [place], fair turgor, Warm and dry, no lesions, [...] 20:32NSTEMI (non-ST elevated myocardial infarction): Entered Date: 74-Pvl-566574:25UTI (urinary tract infection), bacterial: Entered Date: 27-Dec-2016 [...] bowel obstruction: Onset Date: 11-Feb-2012, Entered Date: 12-Ksb-581309:56Generalized abdominal pain (finding): Entered Date: 11-Feb-2012 18:56 [...] ST Elevation Myocardial Infarction (NSTEMI): Entered Date: 34-Yrp-343636:29Coronary angioplasty/stent (PCI): Entered Date: 12-Dec-2009 15:30Dyspnea: Entered [...] Objective Data, Assessment and Plan,Signature/Cosignature/A ttestationApril Nam (TOE FORMER STITCHDOWNS-CONDITIONING MACHINE OPERATOR) (Signed 27-Aug-2017 15:41)Authored: Service, Subjective Data, Objective Data, Assessment and Plan,Signature/Cosignature/A ttestation Last Updated: 28-Aug-2017 06:59 by Ventura Thacker) Normal [facility] Daily Progress Note-Infectio us Diseaseon 08-27-2017 Protein mass conc Service: Infectious Disease Subjective Data:KATHERINE JUDGE is a 82 year old Female who is Hospital Day # 2. no fever, nauseated, abdominal pain, no emesis, no diarrhea. Overnight Events: Patient had an uneventful night. Objective Data: Objective Information:T TFWOCsQ6Ihnfn29.99065796/539 7%Date/Time08/27 6: 6: 6: 6: 6:42Range(36.7C - [...] reviewed these laboratory results: Complete Blood Count [[id number]-[id number] 06:33:00], Basic Metabolic Panel [Drawn 27-Aug-2017 06:33:00],Magnesium, Serum [Drawn 27-Aug-2017 06:33:00], Urinalysis [Drawn 75-Fcs-226778:47:00], Urinalysis, Microscopic [Drawn 25-Aug-2017 18:47:00], Lactate, Level[Drawn [...] Updated: 27-Aug-2017 09:31 by Nela Collado) Normal [facility] Daily Progress Note-Medicine on 08-27-2017 Protein mass conc Service: Medicine Rick bjective Data:KATHERINE JUDGE is a 82 year old Female who is Hospital Day # 2. Reports feeling better today, less abdominal distension after NG was placed. Noflatus yet. Overnight Events: Patient had an uneventful night. Objective Data: Objective Information:T MXITKhP4Qqvou758387607/6597% Date/Time08/27 11: 11: 6: 11: 11:11Range(36.7C - [...] No melena or hematochezia. She presented to [facility] and CT of her abdomen and pelvis was read as showing findings consistentwith small bowel obstruction. She was transferred to [facility] forfurther management. We have been consulted to [...] 12:54 by Maria Del Carmen Andino) Normal [facility] Daily Progress Note-Samarao n 08-27-2017 Protein mass conc Service: Surgery Sub jective Data:KATHERINE JUDGE is a 82 year old Female who is Hospital Day # 2. Additional Information:no flatus yet Objective Data: Objective Information:T FLPCTzH0Ssspb43.17197562/539 7%Date/Time08/27 6: 6: 6: 6: 6:42Range(36.7C - [...] 20:32NSTEMI (non-ST elevated myocardial infarction): Entered Date: 85-Exe-438925:25UTI (urinary tract infection), bacterial: Entered Date: 27-Dec-2016 [...] bowel obstruction: Onset Date: 11-Feb-2012, Entered Date: 74-Jon-168462:56Generalized abdominal pain (finding): Entered Date: 11-Feb-2012 18:56 [...] ST Elevation Myocardial Infarction (NSTEMI): Entered Date: 47-Wua-089214:29Coronary angioplasty/stent (PCI): Entered Date: 12-Dec-2009 15:30Dyspnea: Entered [...] Updated: 27-Aug-2017 09:36 by Jessenia Tapia) Normal [facility] EMR ADDONon 08-27-2017 ADDON CONFIRMATION REQUEST REC'D Normal [facility] Comment on above: Performed By: #### E MRAD ####[facility] [id number] [place] [address] MAGNESIUMon 08-27-2017 Magnesium mass conc 1.95 mg/dL Normal 1.60 - 2.40 [facility] Comment on above: Performed By: #### M G ####[id number] [place] [address] Admission Risk Screen - Adul ton 08-26-2017 [...] Directive Medicalyes? Advance Directive typeDurable Power of Living Specialist for Healthcare? Durable Power of Living Specialist AvailabilityDPOA not available now? Durable Power of Living Specialist [id number]-Bad-2318? Durable Power of Living Specialist contact (name and number)Ganga Judge? Advance Directive [...] instruction; written material? Cultural Considerationsnone? Developmental Considerationsnone? Uatsdin Considerationsnone Learning Assessment (Other Learner):? Other learner [...] Spiritual Screen:? Are there any cultural, spiritual, samaritan practices/values/needs that areimportant for us to know?no CAGE:Is this an injured patient at a Trauma Center ([facility] [place]): no Vaccinations:Vaccination - Influenza Vaccination Screen:? Is [...] 26-Aug-2017 04:19 by Sylvain Gilbert (CINTHYA) Normal [facility] CHEST 1 VIEWon 08-26-2017 CHEST [...] hernia.Electronically signed by: NYLA PARKER DO Normal [facility] CHEST 1 VIEW Name: DERICK KATHERINE STUDY:TH [...] Electronically signed by: LEANN PATEL MD Normal [facility] CHEST 1 VIEW Name: [...] disease.Electronically signed by: LEANN PATEL MD Normal [facility] Consult-Cardiologyon 018 Consult-Cardiology Service:Service: Car diology Consult:Reason: preop clearance HTN History of Present Illness:HPI:This is an 82-year-old female with history of multiple abdominalsurgeries, 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 Ptreadmitted to [facility] 2 [facility] ago with FTT, nausea, dehydration, and RADHA.Discharged to SNF. [facility] yesterday developed abdominal discomfort andvomiting. Appetite not as goo yesterday. [facility] has had daily BM's. Statesabd. discomfort and distention.Denies CP, fever, chills, no abd blood in stools. Sent to [facility], CT ofher abdomen and pelvis was read as showing findings consistent with small bowelobstruction. She was transferred to [facility] for furthermanagement.Pt is known to me, h/o [...] Confusion? Restoril: Confusion Objective: Objective Information: T SCWRVlT8Ibmfh385624702/6996% Date/Time08/26 16:257 16:29718 5:08718 16:18 16:29Range(36C - [...] andreflexes, normal strengthPsychological: Appropriate mood and behaviorSkin: [place], fair turgor, Warm and dry, no lesions, [...] Urine YELLOW Reference Range: STRAW,YELLOWAppearance, Urine HAZYSpecific [place], Urine 1.013pH, Urine 6.0Protein, Urine NEGATIVEGlucose, Urine [...] 22.2 cm2LA Area A2C: 19.3 cm2LA [place] A4C: 5.9 cmLA [place] A2C: 5.4 cmLA Volume Index: 40.5 ml/m2RA VOLUME BY A/L METHOD: Normal Ranges:RA Vol A4C: 17.8 ml (8.3-19.5ml)RA Vol Index A4C: 11.5 ml/m2RA Area A4C: 9.6 cm2RA [place] A4C: 4.4 cmM-MODE MEASUREMENTS: Normal Ranges:Ao Root: [...] amount drg.Possible need for ORprevious records from [facility] obtained and reviewedOffice records obtained and reviewed. [...] Updated: 26-Aug-2017 18:16 by Ventura Thacker) Normal [facility] Consult-Infectious Diseaseon 08-26-2017 Consult-Infectious Disease [...] bowel obstruction (disorder):Acute bowel obstruction: Onset Date: 34-Xvb-1753Qzfargowjlx abdominal pain (finding):Acute bowel obstruction:Acute bowel obstruction: [...] Confusion? Restoril: Confusion Objective: Objective Information: T QWLGCeG9Pvjyi950472547/9390% Date/Time08/26 5: 5: 5: 5: 5:08Range(36C - [...] have reviewed these laboratory results: Urinalysis [Drawn 58-Dpo-142730:47:00], Urinalysis, Microscopic [Drawn 25-Aug-2017 18:47:00], Lactate, Level[Drawn 25-Aug-2017 18:46:00], Comprehensive Metabolic Panel [Drawn 17-Xjq-577716:36:00], Lipase, Serum [Drawn 25-Aug-2017 18:36:00], Troponin I, Serum [[id number]-Bar-1022 18:36:00], Complete Blood Count + Differential [Drawn 80-Czo-933168:15:00], Basic Metabolic Panel [Drawn 21-Aug-2017 16:22:00], Complete [...] ation Last Updated: 26-Aug-2017 09:12 by Nela Colaldo) [facility] Consult-Medicineon 8 Consult-Medicine Service:Service: Med icine Consult:Consult [...] diarrhea. No melena orhematochezia. She presented to [facility] ED and CT of her abdomenand pelvis was read as showing findings consistent with small bowelobstruction. She was transferred to [facility] for furthermanagement. We have been consulted to [...] bowel obstruction (disorder):Acute bowel obstruction: Onset Date: 81-Gkd-9810Wflrwbzyktf abdominal pain (finding):Acute bowel obstruction: Review Family/Social [...] Ativan: Confusion? Restoril: Confusion Objective: Objective Information:T MUXNKkD4Zqete41.15426117/959 0%Date/Time08/26 4: 4: 4: 4: 4:19Range(36.6C - [...] Urine YELLOW Reference Range: STRAW,YELLOWAppearance, Urine HAZYSpecific [place], Urine 1.013pH, Urine 6.0Protein, Urine NEGATIVEGlucose, Urine [...] Updated: 26-Aug-2017 09:58 by Diego Obregon) Normal [facility] Discharge Planning Noteon Discharge Planning Note Discharge Needs Assessment:? Discharge Planning Assessment Zcoh59-Iis-6235? Readmission Within the Last 30 Dayscurrent reason for admission unrelated toprevious admission? Primary Care PhysicianDrLeigh Garnett Adult Information:? Reason for Admission as Stated by Patientsbo? Primary Support Person During HospitalizationCarlos [phone]? Lives Withspouse? Financial Concernsnone Patient Learning:? Factors that Impact Ability to Learnnone(1) Other Factors:? Functional Screen: In the recent/past 2-4 weeks, patient or family havenoticedno issues that require a rehabilitation consult at this time(2) Discharge Planning:Discharge Plannin08/26/17 A&OX3. Lives with spouse, but recovering at [facility] afterbowel surgery. Normally active in ADL, but very weak after surgery. Hxmultiple abd surgeries. N/G light green returns. NPO, has been N&V be foreadmit. Plan return to SNF when medically cleared. Discussed patient plan ofcare and discharge plans during interdisciplinary rounds. Meghan Haro RN-JANAY 08/27/17 1022 DSC: Referral sent to [facility]. SNF/Return. ADOD iswithin 2 days. Medicare ins. Awaiting facility response. Yaneth JordanDischarge Oncology Nurse Navigator - [phone] 08/27/17 1213 DSC: Response received from the following skilled nursingfacilities: [facility] accept the patient. Yaneth Jordan DischargeSupport Coordinator - [phone] 08/27/17 N/G, NPO. for KUB today. Does have 55 days left of snf benefit.[facility] able to accept pt when she is medically ready. Will follow ptthrough hospital stay and adjust plan as needed. Discussed patient plan ofcare and discharge plans during interdisciplinary rounds. Meghan Haro RN-JANAY 08/28/17 1241 DSC: I attached updates for the facility to review. Clark Discharge Oncology Nurse Navigator - [phone] 08/29/17 1011 DSC_ Updates attached to the facility for reviewEmilia Brand Discharge Oncology Nurse Navigator, 08/31/17 0919 DSC: Updates attached to the facility for review. Olga Dooleyge Oncology Nurse Navigator [phone] 08/31/17 Should be ready for d/c tomorrow. Diet full liquid and will advance.Will follow pt through hospital stay and adjust plan as needed. Discussedpatient plan of care and discharge plans during interdisciplinary rounds. [place] MENDES-JANAY 09/01/17 1456 DSC: Final orders attached and sent to facility. No [id number] needed.Olga Lehman Discharge Oncology Nurse Navigator [phone] 09/01/17 1455 PCN: Chute Loader/Patroller notified transport set [id number] lemon picker, via stretcher with [facility] providing transport.Keyana Haro, Editing Intern, Final Disposition/Discharge:Dispos ition/Discharge Information: Discharge/Transfer Information:? Discharge/Transfer Date/Ljri56-Azx-8806 15:53? Discharge Modestretcher? Transportation Methodtransportation service? Valuables/Medications/Belong [...] Screen - Adult 08/26/2017 04:14 AM Normal [facility] History and Physicalon 08-26 History and Physical History of Present Illness:Admission Reason: SBOHPI:82 y.o. WF who had been in her usual state of health until about , when she developed nausea, followed by vomiting, distention andabdominal pain. No reports of fever or chills. No c/o diarrhea, melena orhematochezia. She initially present to [facility]. Underwent CT of abdomen pelvis that showed findings consistent with SBO. Transferred to [facility] for further management, and admitted [...] bowel obstruction (disorder):Acute bowel obstruction: Onset Date: 79-Jiy-7740Czfek bowel obstruction:Acute bowel obstruction:Generalized abdominal pain (finding): [...] Pruritus, Rash, Ulcer Objective: Objective Information: T [id number]/9390% Date/Time08/26 5: 5: 5:0808/26 5:0808/26 5:08Range(36C - [...] Urine YELLOW Reference Range: STRAW,YELLOWAppearance, Urine HAZYSpecific [place], Urine 1.013pH, Urine 6.0Protein, Urine NEGATIVEGlucose, Urine [...] ResultValueLab Comment: Drop off Donald ZAIDI Anngee #[id number] 08/21/2017 psteiGlucose, Serum 108 HNA 139K 4.2CL [...] bowel obstruction (disorder):Acute bowel obstruction: Onset Date: 84-Bik-8827Vacyjrahqgv abdominal pain (finding): Chronic:Fluid overload pulmonary edema:Clostridium difficile infection:Chest pain:Diarrhea: Other Dx/Proc:CHEST PAIN: Description: CHEST PAINUnstable angina/chest pain: Description: Unstable angina/chest painGastrointestinal bleeding: Description: Gastrointestinal bleeding1 Colitis, 2 Abdomen Pain 3 Cholelithiasis: Onset Date: 02-Joi-1035Flwhs failure: Description: Heart failurePNEUMONIA:Diabetes mellitus: Description: Diabetes [...] care, and discharge plan. Electronic Signatures:Vanessa Rodarte (TOE [employer]MER [employer]DOW[employer]-CONDITIONING MACHINE OPERATOR) (Signed 26-Aug-2017 12:20)Authored: History of Present Illness, Comorbidities, Past Medical/SurgicalHistory, Social History, Allergies, Review of Systems, Objective, Assessmentand Plan, Signatures/Attestation/Certi ficationJessenia Tapia) (Signed 26-Aug-2017 14:08)Authored: Signatures/Attestation/Certi fication Last Updated: 26-Aug-2017 14:08 by Jessenia Tapia) Normal [facility] Patient Profile - Adult v2on 08-26-2017 Protein mass conc Profile:Initial Info :How to be AddressedAliceSpoken Language PreferredEnglish (1)Are you currently using the Personal Electronic Health Record or MYCAREnoAre you interested in learning more about [facility] for the management of yourhealthyes, information providedStated Reason for AdmissionAbdominal pain and nausea, got worseArrived Fromemergency departmentPatient BelongingsnoneMedications Brought to [facility]:Weight in kg40.6 kilogram(s)Weight in lbs89.6 pound(s)Height in feet5 feetHeight in inches0 inch(es)Height in cm152.4 centimeter(s)BMI (kg/m2)17.48 square meterWeight Methodactual (measured)Scale TypebedHeight Methodstated [facility] Based Care:How would you like [...] - Adult v2 07/26/2017 5:00 PM Normal [facility] CBC AND DIFFERENTIALon 08-25 % AUTOMATED IMMATURE GRAN 0.6 % Normal 0.0 - 0.9 [facility] Comment on above: Result Comment: Perc ent differential counts (%) should be interpreted in the context of the absolute cell counts (cells/L). Performed By: #### L IPID ####[address] [address] % NEUTROPHIL 72.1 % Normal 40.0 - 80.0 [facility] Comment on above: Performed By: #### L IPID ####[address] [address] Basophils/100 WBC Auto (Bld) 0.4 % Normal 0.0 - 2.0 [facility] Comment on above: Performed By: #### L IPID ####[address] [address] Basophils/100 WBC Auto (Bld) 0.03 x10E9/L Normal 0.00 - 0.10 [facility] Comment on above: Performed By: #### L IPID ####[address] [address] Eosinophils Auto #/vol (Bld) 0.02 10*3/uL Normal 0.00 - 0.40 [facility] Comment on above: Performed By: #### L IPID ####[address] [address] Eosinophils/100 WBC Auto (Bld) 0.2 % Normal 0.0 - 6.0 [facility] Comment on above: Performed By: #### L IPID ####[address] [address] Erythrocyte distribution width Auto Ratio (RBC) 14.3 % Normal 11.5 - 14.5 [facility] Comment on above: Performed By: #### L IPID ####[address] [address] Hematocrit Auto Volume Fraction (Bld) 44.9 % Normal 36.0 - 46.0 [facility] Comment on above: Performed By: #### L IPID ####[address] [address] Hemoglobin mass conc (Bld) 15.0 g/dL Normal 12.0 - 16.0 [facility] Comment on above: Performed By: #### L IPID ####[address] [address] Lymphocytes Auto #/vol (Bld) 1.89 10*3/uL Normal 0.80 - 3.00 [facility] Comment on above: Performed By: #### L IPID ####[address] [address] Lymphocytes/100 WBC Auto (Bld) 22.5 % Normal 13.0 - 44.0 [facility] Comment on above: Performed By: #### L IPID ####[address] [address] MCHC Auto mass conc (RBC) 33.4 g/dL Normal 32.0 - 36.0 [facility] Comment on above: Performed By: #### L IPID ####[address] [address] MCV Auto Entitic volume (RBC) 97 fL Normal 80 - 100 [facility] Comment on above: Performed By: #### L IPID ####[address] [address] Monocytes Auto #/vol (Bld) 0.35 10*3/uL Normal 0.05 - 0.80 [facility] Comment on above: Performed By: #### L IPID ####[id number] [place] [address] Monocytes/100 WBC Auto (Bld) 4.2 % Normal 2.0 - 10.0 [facility] Comment on above: Performed By: #### L IPID ####[id number] [place] [address] Neutrophils Auto #/vol (Bld) 6.07 10*3/uL High 1.60 - 5.50 [facility] Comment on above: Performed By: #### L IPID ####[id number] [place] [address] Platelets Auto #/vol (Bld) 355 10*3/uL Normal 150 - 450 [facility] Comment on above: Performed By: #### L IPID ####[address] [address] RBC Auto #/vol (Bld) 4.64 x10E12/L Normal 4.00 - 5.20 [facility] Comment on above: Performed By: #### L IPID ####[address] [address] WBC Auto #/vol (Bld) 8.4 10*3/uL Normal 4.4 - 11.3 [facility] Comment on above: Performed By: #### L IPID ####[id number] [place] [address] COMPREHENSIVE PANELon 2017 Albumin mass conc 3.7 g/dL Normal 3.4 - 5.0 [facility] Comment on above: Performed By: #### L IPID ####[id number] [place] [address] ALP enzyme act/vol 75 U/L Normal 33 - 136 [facility] Comment on above: Performed By: #### L IPID ####[id number] [place] [address] ALT enzyme act/vol 16 U/L Normal 7 - 45 [facility] Comment on above: Result Comment: Daniel ents treated with Sulfasalazine may generate falsely decreased results for ALT. Performed By: #### L IPID ####[address] [address] Anion gap 3 molar conc 17 mmol/L Normal 10 - 20 [facility] Comment on above: Performed By: #### L IPID ####[id number] [place] [address] AST enzyme act/vol 19 U/L Normal 9 - 39 [facility] Comment on above: Performed By: #### L IPID ####[address] [address] Bilirubin mass conc 0.6 mg/dL Normal 0.0 - 1.2 [facility] Comment on above: Performed By: #### L IPID ####[address] [address] Calcium mass conc 10.3 mg/dL Normal 8.6 - 10.3 [facility] Comment on above: Performed By: #### L IPID ####[address] [address] Chloride molar conc 99 mmol/L Normal 98 - 107 [facility] Comment on above: Performed By: #### L IPID ####[address] [address] Creatinine mass conc 0.91 mg/dL Normal 0.50 - 1.05 [facility] Comment on above: Performed By: #### L IPID ####[address] [address] GFR- AM. 71 mL/min/1.73m2 Normal >60 [facility] Comment on above: Result Comment: CALC ULATIONS OF ESTIMATED GFR ARE PERFORMED USING THE MDRD STUDY EQUATION FOR THE IDMS-TRACEABLE CREATININE METHODS. CLIN CHEM 2007;53:766-72 Performed By: #### L IPID ####[address] [address] GFR-NON AM. 59 mL/min/1.73m2 Abnormal >60 [facility] Comment on above: Performed By: #### L IPID ####[address] [address] Glucose mass conc 125 mg/dL High 74 - 99 [facility] Comment on above: Performed By: #### L IPID ####[facility] [place] [address] HCO3 molar conc (Bld) 28 mmol/L Normal 21 - 32 [facility] Comment on above: Performed By: #### L IPID ####[facility] [place] [address] Potassium molar conc 3.9 mmol/L Normal 3.5 - 5.3 [facility] Comment on above: Performed By: #### L IPID ####[facility] [place] [address] Protein mass conc 8.3 g/dL High 6.4 - 8.2 [facility] Comment on above: Performed By: #### L IPID ####[id number] [place] [address] Sodium molar conc 140 mmol/L Normal 136 - 145 [facility] Comment on above: Performed By: #### L IPID ####[facility] [place] [address] Urea nitrogen mass conc 14 mg/dL Normal 6 - 23 [facility] Comment on above: Performed By: #### L IPID ####[id number] [place] [address] CT ABDOMEN AND PELVIS WITH C ONTRASTon [...] Electronically signed by: LEANN PATEL MD Normal [facility] LACTATEon 08-25-2017 Lactate molar conc 0.8 mmol/L Normal 0.4 - 2.0 [facility] Comment on above: Result Comment: Hali puncture immediately after or during the administration of Metamizole may lead to falsely low results. Testing should be performed immediately prior to Metamizole dosing. Performed By: #### L IPID ####[facility] [place] [address] LIPASEon 08-25-2017 Lipase enzyme act/vol 51 U/L Normal 9 - 82 [facility] Comment on above: Result Comment: Hali puncture immediately after or during the administration of Metamizole may lead to falsely low results. Testing should be performed immediately prior to Metamizole dosing. Performed By: #### L IPID ####[facility] [place] [address] Provider Note - EDon 018 Protein mass conc Time Seen:? Time [id number] 17:58 Triage Vital Signs:? Triage Information Most [...] Signs:? Objective Information T PRBP SpO2O2(LPM) %FiO2 [id number] 18:06:[id number]/81 95 room air, no respiratorysupport Review of [...] DISCHARGE DISPOSITION:? Disposition: transferred? Facility Name (1): [facility]? Name of 1st Consulting Physician: Willie? Was [...] Triage - ED 08/25/2017 6:06 PM Normal [facility] Risk Screen - Adult Emergenc yon 08-25-2017 Risk Screen - Adult Emergency Preferred Language:Preferred Language:? Preferred Language for Discussing Health Care (patient/designee)Malaysian Advanced Directives:? Advance Directive Medicalno Family Violence [...] Learning Preferencesindividual instruction? Cultural Considerationsnone? Developmental Considerationsnone? Uatsdin Considerationsnone Learning Assessment (Other Learner):Learning Assessment (Other [...] an injured patient at a Trauma Center ([facility] [facility]): no Electronic Signatures:Mora Owens (CINTHYA) (Signed 25-Aug-2017 19:06)Authored: Preferred Language, Advanced Directives, Family Violence Adult,Suicide / Depression, Learning Assessment (Patient), Learning Assessment (OtherLearner), Fall Risk Adult, Pressure Injury, Respiratory / Cough /TB,Smoking/Social History (Required age 13 or older), CAGE Last Updated: 25-Aug-2017 19:06 by Mora Owens (CITNHYA) Normal [facility] TROPONIN Ion 08-25-2017 Troponin I.cardiac mass conc ng/mL Normal 0.00 - 0.03 [facility] Comment on above: Result [...] testing is performed using differenttesting methodology at [facility] than at [facility]. Direct result comparisons should onlybe made within the same method. Performed By: #### L IPID ####[id number] [place] [address] Triage - EDon 08-25-2017 INR Coag RelTime (Bld) Pain:Pain Rating (0-10): Rest4 Chart Review:CHIEF COMPLAINT KATHERINE JUDGE is a Female patient with a chief complaint of abdominal pain.Onset of the Complaint: 65-Mfu-9484Ldxfpw Date/Time: 25-Aug-2017 17:59Pain Rating (0-10): Rest: 4Vital [...] 18:08 by Obdulia Perea (RN PRN) Normal [facility] UA MICROSCOPICon 08-25-2017 CA OXALATE CRYSTAL 1+ /HPF Normal [facility] Comment on above: Performed By: #### L IPID ####[id number] [place] [address] HYALINE CAST 1+ /LPF Abnormal [facility] Comment on above: Performed By: #### L IPID ####[id number] [place] [address] MUCUS FEW Normal [facility] Comment on above: Performed By: #### L IPID ####[id number] [place] [address] RBC 3 /HPF Abnormal 0-5 [facility] Comment on above: Performed By: #### L IPID ####[address] [place] [address] SQUAMOUS EPITH. CELLS 1 /HPF Normal [facility] Comment on above: Performed By: #### L IPID ####[id number] [place] [address] WBC 4 /HPF Abnormal 0-5 [facility] Comment on above: Performed By: #### L IPID ####[address] [place] [address] URINALYSISon 08-25-2017 APPEARANCE HAZY Normal CLEAR [facility] Comment on above: Performed By: #### L IPID ####[id number] [place] [address] BILIRUBIN Negative Normal NEGATIVE [facility] Comment on above: Performed By: #### L IPID ####[id number] [place] [address] BLOOD Negative Normal NEGATIVE [facility] Comment on above: Performed By: #### L IPID ####[address] [place] [address] COLOR YELLOW Normal STRAW,YELL OW [facility] Comment on above: Performed By: #### L IPID ####[address] [place] [address] GLUCOSE Negative Normal NEGATIVE [facility] Comment on above: Performed By: #### L IPID ####[id number] [place] [address] KETONES Negative Normal NEGATIVE [facility] Comment on above: Performed By: #### L IPID ####[id number] [place] [address] LEUKOCYTE ESTERASE TRACE Abnormal NEGATIVE [facility] Comment on above: Performed By: #### L IPID ####[id number] [place] [address] NITRITE Negative Normal NEGATIVE [facility] Comment on above: Performed By: #### L IPID ####[id number] [place] [address] pH 6.0 Normal 5.0 - 8.0 [facility] Comment on above: Performed By: #### L IPID ####[address] [address] Protein mass conc Negative Normal NEGATIVE [facility] Comment on above: Performed By: #### L IPID ####[address] [place] [address] SPECIFIC GRAVITY 1.013 Normal 1.005 - 1.035 [facility] Comment on above: Performed By: #### L IPID ####[address] [place] [address] UROBILINOGEN <2.0 Normal 0.0 - 1.9 [facility] Comment on above: Performed By: #### L IPID ####[address] [address] BASIC METABOLIC PANELon 08-09 Anion gap 3 molar conc 13 mmol/L Normal 10 - 20 [facility] Comment on above: Order Comment: Drop off AHA, Phleb, Anngee #8675 08/21/2017 pstei Performed By: #### L IPID ####[address] [address] Calcium mass conc 9.3 mg/dL Normal 8.6 - 10.3 [facility] Comment on above: Order Comment: Drop off AHA, Phleb, Anngee #6780 08/21/2017 pstei Performed By: #### L IPID ####[address] [place] [address] Chloride molar conc 101 mmol/L Normal 98 - 107 [facility] Comment on above: Order Comment: Drop off AHA, Phleb, Anngee #5220 08/21/2017 pstei Performed By: #### L IPID ####[address] [place] [address] Creatinine mass conc 0.90 mg/dL Normal 0.50 - 1.05 [facility] Comment on above: Order Comment: Drop off AHA, Phleb, Anngee #2184 08/21/2017 pstei Performed By: #### L IPID ####[id number] [place] [address] GFR- AM. 73 mL/min/1.73m2 Normal >60 [facility] Comment on above: Order Comment: Drop off AHA, Phleb, Anngee #2281 08/21/2017 pstei Result Comment: CALC ULATIONS OF ESTIMATED GFR ARE PERFORMED USING THE MDRD STUDY EQUATION FOR THE IDMS-TRACEABLE CREATININE METHODS. CLIN CHEM 2007;53:766-72 Performed By: #### L IPID ####[address] [address] GFR-NON AM. 60 mL/min/1.73m2 Abnormal >60 [facility] Comment on above: Order Comment: Drop off AHA, Phleb Anngee #8386 08/21/2017 pstei Performed By: #### L IPID ####[address] [address] Glucose mass conc 108 mg/dL High 74 - 99 [facility] Comment on above: Order Comment: Drop off AHA, Phleb Anngee #4233 08/21/2017 pstei Performed By: #### L IPID ####[address] [address] HCO3 molar conc (Bld) 29 mmol/L Normal 21 - 32 [facility] Comment on above: Order Comment: Drop off AHA, Phleb Anngee #8879 08/21/2017 pstei Performed By: #### L IPID ####[address] [address] Potassium molar conc 4.2 mmol/L Normal 3.5 - 5.3 [facility] Comment on above: Order Comment: Drop off AHA, Phleb Anngee #4989 08/21/2017 pstei Performed By: #### L IPID ####[address] [address] Sodium molar conc 139 mmol/L Normal 136 - 145 [facility] Comment on above: Order Comment: Drop off AHA, Phleb Anngee #0439 08/21/2017 pstei Performed By: #### L IPID ####[address] [address] Urea nitrogen mass conc 17 mg/dL Normal 6 - 23 [facility] Comment on above: Order Comment: Drop off AHA, Phleb Anngee #0646 08/21/2017 pstei Performed By: #### L IPID ####[address] [place] [address] CBCon 08-21-2017 Erythrocyte distribution width Auto Ratio (RBC) 14.4 % Normal 11.5 - 14.5 [facility] Comment on above: Order Comment: Drop off AHA, Phleb, Anngee #3953 08/21/2017 pstei Performed By: #### L IPID ####[address] [address] Hematocrit Auto Volume Fraction (Bld) 37.2 % Normal 36.0 - 46.0 [facility] Comment on above: Order Comment: Drop off AHA, Phleb, Anngee #3956 08/21/2017 pstei Performed By: #### L IPID ####[address] [address] Hemoglobin mass conc (Bld) 12.0 g/dL Normal 12.0 - 16.0 [facility] Comment on above: Order Comment: Drop off AHA, Phleb, Anngee #3959 08/21/2017 pstei Performed By: #### L IPID ####[address] [address] MCHC Auto mass conc (RBC) 32.3 g/dL Normal 32.0 - 36.0 [facility] Comment on above: Order Comment: Drop off AHA, Phleb, Anngee #3951 08/21/2017 pstei Performed By: #### L IPID ####[address] [address] MCV Auto Entitic volume (RBC) 100 fL Normal 80 - 100 [facility] Comment on above: Order Comment: Drop off AHA, Phleb, Anngee #3950 08/21/2017 pstei Performed By: #### L IPID ####[address] [address] Platelets Auto #/vol (Bld) 322 10*3/uL Normal 150 - 450 [facility] Comment on above: Order Comment: Drop off AHA, Phleb, Anngee #3950 08/21/2017 pstei Performed By: #### L IPID ####[address] [address] RBC Auto #/vol (Bld) 3.71 x10E12/L Low 4.00 - 5.20 [facility] Comment on above: Order Comment: Drop off AHA, Phleb Anngee #3959 08/21/2017 pstei Performed By: #### L IPID ####[address] [address] WBC Auto #/vol (Bld) 8.2 10*3/uL Normal 4.4 - 11.3 [facility] Comment on above: Order Comment: Drop off AHA, Phleb, Anngee #3959 08/21/2017 pstei Performed By: #### L IPID ####[address] [address] BASIC METABOLIC PANELon 06-2 Anion gap 3 molar conc 11 mmol/L Normal 10 - 20 [facility] Comment on above: Performed By: #### L IPID ####[address] [address] Calcium mass conc 8.2 mg/dL Low 8.6 - 10.3 [facility] Comment on above: Performed By: #### L IPID ####[address] [address] Chloride molar conc 107 mmol/L Normal 98 - 107 [facility] Comment on above: Performed By: #### L IPID ####[address] [address] Creatinine mass conc 0.82 mg/dL Normal 0.50 - 1.05 [facility] Comment on above: Performed By: #### L IPID ####[address] [address] GFR- AM. >60 Normal >60 [facility] Comment on above: Result Comment: CALC ULATIONS OF ESTIMATED GFR ARE PERFORMED USING THE MDRD STUDY EQUATION FOR THE IDMS-TRACEABLE CREATININE METHODS. CLIN CHEM 2007;53:766-72 Performed By: #### L IPID ####[address] [address] GFR-NON AM. >60 Normal >60 [facility] Comment on above: Performed By: #### L IPID ####[facility] [place] [address] Glucose mass conc 92 mg/dL Normal 74 - 99 [facility] Comment on above: Performed By: #### L IPID ####[address] [place] [address] HCO3 molar conc (Bld) 26 mmol/L Normal 21 - 32 [facility] Comment on above: Performed By: #### L IPID ####[address] [place] [address] Potassium molar conc 3.5 mmol/L Normal 3.5 - 5.3 [facility] Comment on above: Performed By: #### L IPID ####[address] [address] Sodium molar conc 140 mmol/L Normal 136 - 145 [facility] Comment on above: Performed By: #### L IPID ####[address] [address] Urea nitrogen mass conc 11 mg/dL Normal 6 - 23 [facility] Comment on above: Performed By: #### L IPID ####[address] [address] CBCon 07-29-2017 Erythrocyte distribution width Auto Ratio (RBC) 13.0 % Normal 11.5 - 14.5 [facility] Comment on above: Performed By: #### L IPID ####[address] [address] Hematocrit Auto Volume Fraction (Bld) 33.6 % Low 36.0 - 46.0 [facility] Comment on above: Performed By: #### L IPID ####[address] [place] [address] Hemoglobin mass conc (Bld) 10.8 g/dL Low 12.0 - 16.0 [facility] Comment on above: Performed By: #### L IPID ####[address] [address] MCHC Auto mass conc (RBC) 32.1 g/dL Normal 32.0 - 36.0 [facility] Comment on above: Performed By: #### L IPID ####[address] [place] [address] MCV Auto Entitic volume (RBC) 103 fL High 80 - 100 [facility] Comment on above: Performed By: #### L IPID ####[facility] [place] [address] Platelets Auto #/vol (Bld) 252 10*3/uL Normal 150 - 450 [facility] Comment on above: Performed By: #### L IPID ####[address] [place] [address] RBC Auto #/vol (Bld) 3.25 x10E12/L Low 4.00 - 5.20 [facility] Comment on above: Performed By: #### L IPID ####[address] [place] [address] WBC Auto #/vol (Bld) 6.3 10*3/uL Normal 4.4 - 11.3 [facility] Comment on above: Performed By: #### L IPID ####[address] [place] [address] CLOST.DIFF.TOXIN,PCRon 07-29 CLOST.DIFF.TOXIN,PCR NOT DETECTED Normal Not Detected [facility] Comment on above: Result [...] 7 days. Performed By: #### L IPID ####[address] [place] [address] Daily Progress Note-Surgeryo n 07-29-2017 Protein mass conc Service: Surgery Sub jective Data:KATHERINE JUDGE is a 82 year old Female who is Hospital Day # 4. MORE AWAKE / TOLERATING PO / C DIFF NEGATIVE. Objective Data: Objective Information:T [id number]/739 7%Date/Time07/29 6: 6: 6: 6: 6:40Range(36.6C - [...] Last Updated: 29-Jul-2017 08:52 by Manny Arana) [facility] Discharge Planning Noteon Discharge Planning Note Discharge Needs Assessment:? Discharge Planning Assessment [id number]? Discharge Planning Assessment Completed bySom Chaudhari CC Patient Learning:? Factors that Impact Ability to Learnnone(1) Other Factors:? Functional Screen: In the recent/past 2-4 weeks, patient or family havenoticednew difficulty in safely performing activities of daily living, asignificant change in function affecting balance, or the ability to safelytransfer or ambulate (And is not on bedrest)(2) Discharge Needs:? [facility]:Discharge Plannin07/29/17 Spoke with patient with family present, patient stated ok to talk infront of family, patient and [facility]. Referral sent via [facility], [facility] will accept patient at discharge, no precert required. Willcontinue to follow. Som Chaudhari RNCC 07/29/17 Discharge Orders sent via [facility] to [facility]. Som Leon 07/29/17 1427 [facility]. Transported [facility] withmily also going to go to [facility] to help pt. get settled. Report alsocalled to nurse Olga at [facility] per resourse nurseJoy. LEIA Wallace Final Disposition/Discharge:Dispos ition/Discharge Information: Discharge/Transfer Information:? Discharge/Transfer Date/Hquu68-Tml-7702 14:27 Electronic Signatures:France Bean (RN) (Signed 29-Jul-2017 14:45)Authored: Discharge Planning Note, Final Disposition/DischargeSom Jama (CLIN COOR) (Signed 29-Jul-2017 11:19)Authored: Discharge Planning Note Last Updated: 29-Jul-2017 14:45 by France Bean (RN) References:1. Data Referenced From 5. Education 07/26/2017 05:07 PM2. Data Referenced From Admission Risk Screen - Adult 07/26/2017 05:07 PM Normal [facility] Discharge Fcdujry6sn 06-20-2 018 Protein mass conc Discharge Orders:Ant icipated Discharge Date:? Anticipated Discharge Dowr79-Kij-7309 Problem List: Admitting Dx:? Acute kidney injury: [...] Review of Medication Reconciliation and Orders Completedby TOE FORMER STITCHDOWNS? Reviewing ProviderPatricia GIANNA Tillman at 29-Jul-2017 13:51:52 Gold Form - Nursing Summary:Special Treatments/Procedures (in past 14 days):? Chemotherapyno? Dialysisno? IV Medicationno? Oxygen Therapyno? Transfusionsno? Feverno? Radiationno? Ventilatorno? Tracheostomyno? Suctioningno Nutrition:? Nutritional Statusfeeds self, good set up? Nutrition CommentBoost Sensory/Comfort:? Visionadequate? Hearingadequate? Speechclear? Painno Elimination:? Bladdercontinent, occ. incont.? Bowelcontinent? Last Bowel Aphmlsat84-Mnc-7134? Toiletingtoilet Safety:? Siderailsyes? Siderails Number/ReasonSafety? Restraintsno? Sitterno? Fall Riskprevious falls, weakness Medication/Hygiene/Mobility: ? Medication Administrationassist? Bathingassist? Dressingassist? Bed Mobilitysupervision only? Wheelchairassist? Transfersassist? Ambulationassist Gold Form - Rn Admit Summary:Referral Information:? Referral [facility]? Referring Facility [facility]? Contact Arianagrupo Fara [facility]? Contact Phone [phone] Electronic Signatures:Nima Teixeira (RN) (Signed 29-Jul-2017 13:45)Authored: Gold Form - Nursing SummarySom Chaudhari (CLIN COOR) (Signed 29-Jul-2017 07:48)Authored: Gold Form - Rn Admit SummaryValerie Jiang) (Signed 29-Jul-2017 10:13)Authored: Discharge Alex Morales (TOE FORMER STITCHDOWNS-CONDITIONING MACHINE OPERATOR) (Signed 29-Jul-2017 13:51)Authored: Discharge Orders, Gold Form Orders, Provider FINAL REVIEW of Orders Last Updated: 29-Jul-2017 13:51 by Alex Tillman (TOE FORMER STITCHDOWNS-CONDITIONING MACHINE OPERATOR) Normal [facility] MAGNESIUMon 07-29-2017 Magnesium mass conc 1.38 mg/dL Low 1.60 - 2.40 [facility] Comment on above: Performed By: #### L IPID ####[address] [address] BASIC METABOLIC PANELon 07-10 Anion gap 3 molar conc 6 mmol/L Low 10 - 20 [facility] Comment on above: Performed By: #### L IPID ####[address] [address] Calcium mass conc 9.0 mg/dL Normal 8.6 - 10.3 [facility] Comment on above: Performed By: #### L IPID ####[address] [address] Chloride molar conc 108 mmol/L High 98 - 107 [facility] Comment on above: Performed By: #### L IPID ####[address] [address] Creatinine mass conc 1.00 mg/dL Normal 0.50 - 1.05 [facility] Comment on above: Performed By: #### L IPID ####[address] [address] GFR- AM. 64 mL/min/1.73m2 Normal >60 [facility] Comment on above: Result Comment: CALC ULATIONS OF ESTIMATED GFR ARE PERFORMED USING THE MDRD STUDY EQUATION FOR THE IDMS-TRACEABLE CREATININE METHODS. CLIN CHEM 2007;53:766-72 Performed By: #### L IPID ####[address] [address] GFR-NON AM. 53 mL/min/1.73m2 Abnormal >60 [facility] Comment on above: Performed By: #### L IPID ####[address] [address] Glucose mass conc 92 mg/dL Normal 74 - 99 [facility] Comment on above: Performed By: #### L IPID ####[facility] [place] [address] HCO3 molar conc (Bld) 30 mmol/L Normal 21 - 32 [facility] Comment on above: Performed By: #### L IPID ####[facility] [place] [address] Potassium molar conc 3.3 mmol/L Low 3.5 - 5.3 [facility] Comment on above: Performed By: #### L IPID ####[facility] [place] [address] Sodium molar conc 141 mmol/L Normal 136 - 145 [facility] Comment on above: Performed By: #### L IPID ####[facility] [place] [address] Urea nitrogen mass conc 19 mg/dL Normal 6 - 23 [facility] Comment on above: Performed By: #### L IPID ####[facility] [place] [address] BONE SCAN/ WHOLE BODYon 07-10 BONE SCAN/ [...] a normal variation.This study was interpreted at [facility]. Electronically signed by: MICHEAL AGUIRRE MD Normal [facility] CBCon 07-28-2017 Erythrocyte distribution width Auto Ratio (RBC) 13.1 % Normal 11.5 - 14.5 [facility] Comment on above: Performed By: #### L IPID ####[address] [place] [address] Hematocrit Auto Volume Fraction (Bld) 30.5 % Low 36.0 - 46.0 [facility] Comment on above: Performed By: #### L IPID ####[facility] [place] [address] Hemoglobin mass conc (Bld) 9.5 g/dL Low 12.0 - 16.0 [facility] Comment on above: Performed By: #### L IPID ####[facility] [place] [address] MCHC Auto mass conc (RBC) 31.1 g/dL Low 32.0 - 36.0 [facility] Comment on above: Performed By: #### L IPID ####[facility] [place] [address] MCV Auto Entitic volume (RBC) 103 fL High 80 - 100 [facility] Comment on above: Performed By: #### L IPID ####[facility] [place] [address] Platelets Auto #/vol (Bld) 247 10*3/uL Normal 150 - 450 [facility] Comment on above: Performed By: #### L IPID ####[facility] [place] [address] RBC Auto #/vol (Bld) 2.96 x10E12/L Low 4.00 - 5.20 [facility] Comment on above: Performed By: #### L IPID ####[facility] [place] [address] WBC Auto #/vol (Bld) 5.4 10*3/uL Normal 4.4 - 11.3 [facility] Comment on above: Performed By: #### L IPID ####[facility] [place] [address] Daily Progress Note-Medicine on 07-28-2017 Protein mass [...] an uneventful night. Objective Data: Objective Information:T MGOQVrS4Hnycu56.84020838/769 6%Date/Time07/28 6:4907/28 6:4907/28 6:4907/28 6: 6:49Range(36.6C - [...] Oral Daily16. Simvastatin: 40 mg Oral At Sewksnp71. tiZANidine: 2 mg Oral Every 24 Hours PRN Medications ---- 1. Acetaminophen: 650 mg Oral Every 4 Hours2. Bisacodyl Enteric Coated: 5 mg Oral Once3. Magnesium Hydroxide -Al Hydrox -Simethicone Oral Liquid: 30 mL OralEvery 6 Hours4. traMADol: 50 mg Oral Every 6 Hours Recent Lab Results: Results:Complete Blood Nifmg18-Deb-9911 08:25:00 ResultValueReference RangeWhite Blood Cell Count5.44.4 - 11.3 x10E9/LRed Blood Cell Count2.96 L4.00 - 5.20 x10E12/LHGB9.5 L12.0 - 16.0 g/dLHCT30.5 L36.0 - 46.0 %HNQ992 H80 - 100 dCOVJO07.1 L32.0 - 36.0 g/gBXAH570834 - 450 x10E9/LRDW-CV13.111.5 - 14.5 % Basic Metabolic Buksj96-Qni-7887 08:25:00 ResultValueReference RangeGlucose, Kflrd7242 - 99 mg/lNSN419203 - 145 mmol/LK3.3 L3.5 - 5.3 mmol/NRA002 H98 - 107 mmol/LBicarbonate, Rkctb4565 - 32 mmol/LAnion Gap, Serum6 L10 - 20 mmol/BDFI598 - 23 mg/dLCREAT1.000.50 - 1.05 mg/dLGFR-Non Qqsvgfpu53 A>60 mL/min/1.71h6TPP-Adikyzk Qqnzikiv96>60 mL/min/1.82v1Rcrkknc, Serum9.08.6 - 10.3 mg/dL Assessment and Plan:Assessment: [...] Updated: 28-Jul-2017 17:01 by Valerie Jiang) Normal [facility] BASIC METABOLIC PANELon 06-1 Anion gap 3 molar conc 9 mmol/L Low 10 - 20 [facility] Comment on above: Performed By: #### L IPID ####[address] [place] [address] Calcium mass conc 10.9 mg/dL High 8.6 - 10.3 [facility] Comment on above: Performed By: #### L IPID ####[address] [place] [address] Chloride molar conc 105 mmol/L Normal 98 - 107 [facility] Comment on above: Performed By: #### L IPID ####[address] [address] Creatinine mass conc 1.47 mg/dL High 0.50 - 1.05 [facility] Comment on above: Performed By: #### L IPID ####[address] [address] GFR- AM. 41 mL/min/1.73m2 Abnormal >60 [facility] Comment on above: Result Comment: CALC ULATIONS OF ESTIMATED GFR ARE PERFORMED USING THE MDRD STUDY EQUATION FOR THE IDMS-TRACEABLE CREATININE METHODS. CLIN CHEM 2007;53:766-72 Performed By: #### L IPID ####[address] [address] GFR-NON AM. 34 mL/min/1.73m2 Abnormal >60 [facility] Comment on above: Performed By: #### L IPID ####[address] [place] [address] Glucose mass conc 91 mg/dL Normal 74 - 99 [facility] Comment on above: Performed By: #### L IPID ####[address] [place] [address] HCO3 molar conc (Bld) 29 mmol/L Normal 21 - 32 [facility] Comment on above: Performed By: #### L IPID ####[address] [place] [address] Potassium molar conc 3.9 mmol/L Normal 3.5 - 5.3 [facility] Comment on above: Performed By: #### L IPID ####[address] [place] [address] Sodium molar conc 139 mmol/L Normal 136 - 145 [facility] Comment on above: Performed By: #### L IPID ####[address] [address] Urea nitrogen mass conc 33 mg/dL High 6 - 23 [facility] Comment on above: Performed By: #### L IPID ####[address] [address] CBCon 07-27-2017 Erythrocyte distribution width Auto Ratio (RBC) 13.2 % Normal 11.5 - 14.5 [facility] Comment on above: Performed By: #### L IPID ####[address] [address] Hematocrit Auto Volume Fraction (Bld) 31.3 % Low 36.0 - 46.0 [facility] Comment on above: Performed By: #### L IPID ####[address] [address] Hemoglobin mass conc (Bld) 9.8 g/dL Low 12.0 - 16.0 [facility] Comment on above: Performed By: #### L IPID ####[address] [address] MCHC Auto mass conc (RBC) 31.3 g/dL Low 32.0 - 36.0 [facility] Comment on above: Performed By: #### L IPID ####[address] [address] MCV Auto Entitic volume (RBC) 105 fL High 80 - 100 [facility] Comment on above: Performed By: #### L IPID ####[address] [address] Platelets Auto #/vol (Bld) 241 10*3/uL Normal 150 - 450 [facility] Comment on above: Performed By: #### L IPID ####[address] [address] RBC Auto #/vol (Bld) 2.99 x10E12/L Low 4.00 - 5.20 [facility] Comment on above: Performed By: #### L IPID ####[facility] [place] [address] WBC Auto #/vol (Bld) 6.3 10*3/uL Normal 4.4 - 11.3 [facility] Comment on above: Performed By: #### L IPID ####[facility] [place] [address] Consulton 07-27-2017 Consult Service:Consult:Cons ult requested by (Attending Name): Joy: PATIENT KNOWN TO ME / S/P RIGHT COLECTOMY FOR CECAL VOLVULUS / History of Present Illness:HPI:PATIENT 24 DAYS S/P RIGHT COLECTOMY FOR CECAL VOLVULUS / WAS [place] AND DOINGRESONABLE WELL / NOTED TO BE [...] bowel obstruction (disorder):Acute bowel obstruction: Onset Date: 27-Lil-2755Kwvlzydareg abdominal pain (finding):Acute bowel obstruction:Acute bowel obstruction: [...] Confusion? Restoril: Confusion Objective: Objective Information: T FIRAYjH5Krlpn01.81794133/659 7%Date/Time07/26 21: 21: 21: 21: 21:00Range(36.7C - [...] reviewed these laboratory results: Complete Blood Count [Fcvsc32-Xoj-3467 06:25:00], Basic Metabolic Panel [Drawn 27-Jul-2017 06:25:00],Comprehensive [...] Updated: 27-Jul-2017 07:34 by Manny Arana) Normal [facility] History and Physicalon 07-27 History and Physical History of Present Illness:Admission Reason: Encephalopathy; HypercalcemiaHPI:Ms. Judge is an 82 year old female who [facility] dueto altered mental status. Patient was seen [...] lead 3 and aVF.Medications: Cipro, IV bolus w1Zkimtaz was admitted to med surg for further medical management. Past Medical/Surgical History:Gastrocutaneous fistulaConstipationIleusExpl oratory laparotomyAnemiaTransient ischemic colitis (disorder)Protein malnutrition unspecified (disorder)Hypokalemia (disorder)Magnesium deficiencyColitis (disorder)Small bowel obstruction (disorder)Acute bowel obstruction: Onset Date: 43-Lsn-3861Xltzpjiecnr abdominal pain (finding)CAD, status post 2013 circumflex [...] Confusion? Restoril: Confusion Objective: Objective Information: T VYENDnI1Ahehx24.58274727/619 8%Date/Time07/27 6:5818 6:5818 6:586/18 6:586/18 6:58Range(36.7C - [...] Oral Daily13. Simvastatin: 40 mg Oral At Ppdxjnz34. [employer] [place] 99m Medronate (MDP - Radiology [...] 6 Hours Recent Lab Results: Results:Complete Blood Ysycm57-Lrp-7256 06:25:00 ResultValueReference RangeWhite Blood Cell Count6.34.4 - 11.3 x10E9/LRed Blood Cell Count2.99 L4.00 - 5.20 x10E12/LHGB9.8 L12.0 - 16.0 g/dLHCT31.3 L36.0 - 46.0 %SKE961 H80 - 100 wZICTQ92.3 L32.0 - 36.0 g/mBLWQ703522 - 450 x10E9/LRDW-CV13.211.5 - 14.5 % Basic Metabolic Kvikw66-Wwc-8586 06:25:00 ResultValueReference RangeGlucose, Zxgns0794 - 99 mg/pFBA655322 - 145 mmol/LK3.93.5 - 5.3 mmol/FXU68660 - 107 mmol/LBicarbonate, Jbqfk1202 - 32 mmol/LAnion Gap, Serum9 L10 - 20 mmol/LBUN33 H6 - 23 mg/dLCREAT1.47 H0.50 - 1.05 mg/dLGFR-Non Kxxlorfw64 A>60 mL/min/1.04y1OFB-Kgqftxd Gzgrrlrp25 A>60 mL/min/1.23w7Cmkmqna, Serum10.9 H8.6 - 10.3 mg/dL Brain Natriuretic Jvyxwnd61-Kdd-2031 15:10:00 ResultValueReference RangeBrain Natriuretic Tiujpyw072 - 99 pg/mL Hwogwrjsfp83-Eop-3306 15:06:00 ResultValueReference RangeColor, UrineYELLOW Reference Range: STRAW,YELLOWAppearance, UrineHAZYCLEARSpecific [place], Urine1.0091.005 - 1.035pH, Urine6.05.0 - 8.0Protein, UrineNEGATIVENEGATIVE mg/dLGlucose, UrineNEGATIVENEGATIVE mg/dLBlood, UrineSMALL(1+) ANEGATIVEKetones, UrineNEGATIVENEGATIVE mg/dLBilirubin, UrineNEGATIVENEGATIVEUrobili nogen, Urine<2.00.0 - 1.9 mg/dLNitrite, UrineNEGATIVENEGATIVELeukocy te Esterase, UrineMODERATE(2+) ANEGATIVE Urinalysis, Kcocxdhzyrx09-Syd-7578 15:06:00 ResultValueReference RangeWhite Cells8 A0 - 5 /HPFRed Blood Cells2 A0 - 5 /HPFEpithelial Cells, Fvgnwrra8Keeoznhpdd Cells, Transitional<1Bacteria, Urine4+ AMucousFEWHyaline Casts3+ AAmorphous Crystals1+ Culture, BloodTrending View Bbyjah79-Nae-1738 14:35:2873-Mgp-3614 14:34:00Reference RangeCulture, BloodNEGATIVE TO DATE, CULTURE IN PROGRESS.NEGATIVE TO DATE, CULTUREIN PROGRESS. Comprehensive Metabolic Kjgfj24-Gvb-1527 14:34:00 ResultValueReference RangeLab Comment:Dr Vance notified, 07/26/2017 15:10Glucose, Ftuda675 H74 - 99 mg/kLAI861962 - 145 mmol/LK4.83.5 - 5.3 mmol/ - 107 mmol/LBicarbonate, Ctrah8089 - 32 mmol/LAnion Gap, Xwxhx9601 - 20 mmol/LBUN43 H6 - 23 mg/dLCREAT1.94 H0.50 - 1.05 mg/dLGFR-Non Lsnrlhfr10 A>60 mL/min/1.80n6FXJ-Eatyggd Ctojiezv21 A>60 mL/min/1.70x3Hmqyavy, Serum13.2 HH8.6 - 10.3 mg/dLALB3.0 L3.4 - 5.0 g/mYWDYF9891 - 136 U/LT Pro6.66.4 - 8.2 g/Rashi Bili0.40.0 - 1.2 mg/dLAlanine Aminotransferase, Koamq214 - 45 U/LAspartate Transaminase, Tlrkh029 - 39 U/L Complete Blood Count + Jvosynjyahgr21-Esq-8382 14:34:00 ResultValueReference RangeWhite Blood Cell Count10.54.4 - 11.3 x10E9/LRed Blood Cell Count3.33 L4.00 - 5.20 x10E12/LHGB11.0 L12.0 - 16.0 g/dLHCT34.2 L36.0 - 46.0 %FVY081 H80 - 100 iYBSPF98.232.0 - 36.0 g/oQRNZ017634 - 450 x10E9/LRDW-CV13.311.5 - 14.5 %Neutrophil %86.540.0 - 80.0 %Immature Granulocytes %0.50.0 - 0.9 %Lymphocyte %10.613.0 - 44.0 %Monocyte %2.02.0 - 10.0 %Eosinophil %0.20.0 - 6.0 %Basophil %0.20.0 - 2.0 %Neutrophil Count9.11 H1.60 - 5.50 x10E9/LLymphocyte Count1.110.80 - 3.00 x10E9/LMonocyte Count0.210.05 - 0.80 x10E9/LEosinophil Count0.020.00 - 0.40 x10E9/LBasophil Count0.020.00 - 0.10 x10E9/L PT + INR, Cnxgzj32-Qwg-4212 14:34:00 ResultValueReference RangeProthrombin Time, Wphcsd92.3 H9.8 - 12.7 secInternational Normalized Ratio, Plasma1.2 H0.9 - 1.1 RBC Aifvlvtvwl26-Vzm-5366 14:34:00 ResultValueReference RangeRed Blood Cell MorphologySEE COMMENT NO SIGNIFICANT RBC ABNORMALITIES SEEN ONSMEAR REVIEW. 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 Nutrition consulted per nursing screen for MST 2 or more, eating poorly/recentweight loss and for assessment recommendations. Per chart: [facility]/26 atrecommendation of primary care [...] Pt says she would try [employer] [place]. Says she does not likeeggs. Noted different [...] 2 Abdomen Pain 3 Cholelithiasis: Onset Date: 81-Ock-8608Ygnwb failure: Description: Heart failurePNEUMONIA:Diabetes mellitus: Description: Diabetes [...] bowel obstruction (disorder):Acute bowel obstruction: Onset Date: 55-Cdy-7332Qpamq bowel obstruction: Objective Information: T MMOKNpC4Nnfff31.83963496/619 8%Date/Time07/27 6: 6:5807/27 6:5807/27 6: 6:58Range(36.7C - [...] (kg/m2)) 18.712 ---- Intake and Output -----Mn/Dy/Year TimeIntakeOutL[facility] 2017 2:00 [id number] 2017 10:00 [id number] The Intake and Output Totals for the last 24 hours are:DmtzjhZnxcjhUzt813dsdoze ll Height/Weight:Height in feet: 5 feetHeight in [...] (H) Nutrition Labs:Special Chemistry: 03-Jul-2017 10:15, Hemoglobin H1SGhmpofdpzm A1C, Level5.3 Diagnosis of Diabetes-Adults Non-Diabetic: < or = 5.6% Increased risk for developing diabetes: 5.7-6.4% Diagnostic of diabetes: > or = 6.5%. Monitoring of Diabetes Age (y) Therapeutic Goal (%) Adults: >18 <7.0 Pediatrics: 13-18 <7.5 7-12 <8.0 0- 6 7.5-8.5 [place] [employer]. Diabetes Care 33(S1), Feb 2009.Estimated Average Gbfpozn867 Current Active Medications/PN:Bisacodyl Enteric Coated, Enteric Coated Tablet (DULCOLAX)DOSE = 5 mg Oral Once, PRN Constipation, 89-Wmv-1728Yeaagfnbk Hydroxide -Al Hydrox -Simethicone Oral Liquid, (MAALOX)DOSE = 30 mL Oral Every 6 Hours, PRN Dyspepsia, 03-Vlc-2011Fzqlcpuipu, Tablet (PRINIVIL, ZESTRIL)DOSE = 10 mg Oral Daily, 46-Lrj-6610fluSVOzp, Tablet (ULTRAM)DOSE = 50 mg Oral Every 6 Hours, PRN Pain - Mod (4-6), 45-Rjt-7916Kozrlxrqmve, Tablet (PLAVIX)DOSE = 75 mg Oral Daily, 80-Ajm-1395Djicfafxeh, Tablet (LASIX)DOSE = 20 mg Oral Daily, 51-Pwa-4978Czxjodlnqz, Capsule (NEURONTIN)DOSE = 300 mg Oral 3 Times a Day, 20-Qgj-8449Mlzqjsnbpq Mononitrate Extended Release, Tablet, Extended Release (IMDUR)DOSE = 60 mg Oral Daily, 50-Nau-9756Hgxomxoqav Tartrate, Tablet (LOPRESSOR)DOSE = 50 mg Oral Every 12 Hours, 59-Ynp-8721Blrqccedfbc, Tablet (ZOCOR)DOSE = 40 mg Oral At Bedtime, 58-Fmd-7926Iehhjlawtl, Tablet (PEPCID)DOSE = 20 mg Oral At Bedtime, 71-Fdg-8987Ozdbvizhvx Oral Liquid, DOSE = 125 mg Oral Every 6 Hours, 11-Zmj-3593Vtdlahx Sulfate, Tablet (FEOSOL)DOSE = 325 mg Oral Daily, 16-Wgl-3015Rwjxcnbrv Chloride Extended Release, Tablet, Extended ReleaseDOSE = 10 mEq Oral Daily, 26-Ysw-6041cyXTPWaft Extended Release (24 hour), Tablet, Extended Release (WELLBUTRINXL)DOSE = 150 mg Oral Every 24 Hours, 39-Ria-0242Uxartlsgbf, Tablet (ZOLOFT)DOSE = 150 mg Oral Daily, 51-Bma-2416bqWJAlkrth, Tablet (ZANAFLEX)DOSE = 2 mg Oral Every 24 Hours, 96-Hfb-3467Ayrmot Chloride 0.9% with Potassium CL 20 mEq Premix Fluid, IV Bag Volume =1,000 mL Run at: 100 mL/hr IntraVenous , 27-Jul-2017 Nutrition Orders:Diet, Regular, 36-Vzu-2789Rkm Participate in Room Service, YesOrder entered from Admission Screens., 91-Njh-7552Agqj Nutritional Supplements, RoutineBoost PlusFlavor Preference: [place], 3 Times a DaySpecial Instructions: Please send [employer] Plus [place] with each tray.Thank you!, 27-Jul-2017 Food/Nutrition Related [...] 15:15 by Silvia Tyler ([place], [place]) Normal [facility] PARATHYROID HORMONE,INTACTon 07-27-2017 PARATHYROID HORMONE,INTACT < 6.3 Low 18.5 - 88.0 [facility] Comment on above: Result Comment: Daniel ents receiving more than 5 mg/day of biotin may have interference in test results. A sample should be taken no sooner than eight hours after previous dose. Contact [phone] for additional information. Performed By: #### L IPID ####[facility] [place] [address] Admission Risk Screen - Adul ton 07-26-2017 [...] Advance Directive typeLiving Will, Durable Power of Living Specialist for Healthcare? Living Will AvailabilityLiving Will not available now? Living Will Huioofpwg14-Ozl-6502? Durable Power of Living Specialist AvailabilityDPOA not available now? Durable Power of Living Specialist Hkgrwlfrh62-Gsv-6911? Durable Power of Living Specialist contact (name and number)Dannie Judge- [phone]? Advance Directive Mental Healthnot applicable Falls Screen:Type [...] material; verbal instruction? Cultural Considerationsnone? Developmental Considerationsnone? Uatsdin Considerationsnone Learning Assessment (Other Learner):? Other learner [...] Spiritual Screen:? Are there any cultural, spiritual, samaritan practices/values/needs that areimportant for us to know?no CAGE:Is this an injured patient at a Trauma Center ([facility] [place]): no Vaccinations:Vaccination - Influenza Vaccination Screen:? Is [...] Triage - ED 07/26/2017 2:05 PM Normal [facility] BLOOD CULTURE, BACTERIALon 0 07-26-2017 BLOOD CULTURE, BACTERIAL PATIENT: KATHERINE JUDGE LOCATION: [address]#: [id number] : [birth year] AGE: SEX: F ORDERED BY: TOMMY MENDEZ: Blood COLLECTED: 07/26/17 14:35ANTIBIOTICS AT ESDRAS.: RECEIVED : 07/27/17 09:48SITE: ANTECUBITAL R E S U L T S BLOOD CULTURE, BACTERIAL FINAL 08/01/17 11:42 No Growth at 1 days No Growth at 2 days No Growth at 3 days No Growth at 4 days NO GROWTH - FINAL REPORT Normal [facility] Comment on above: Performed By: #### L IPID ####[id number] [place] [address] BLOOD CULTURE, BACTERIAL PATIENT: KATHERINE JUDGE LOCATION: [address]#: [id number] : [birth year] AGE: SEX: F ORDERED BY: TOMMY MENDEZ: Blood COLLECTED: 07/26/17 14:34ANTIBIOTICS AT ESDRAS.: RECEIVED : 07/27/17 09:58SITE: ANTECUBITAL R E S U L T S BLOOD CULTURE, BACTERIAL FINAL 08/01/17 11:42 No Growth at 1 days No Growth at 2 days No Growth at 3 days No Growth at 4 days NO GROWTH - FINAL REPORT Normal [facility] Comment on above: Performed By: #### L IPID ####[id number] [place] [address] BNPon 07-26-2017 Natriuretic peptide B mass conc (Bld) 67 pg/mL Normal 0 - 99 [facility] Comment on above: Result Comment: . <1 00 pg/mL - Heart failure oasunozo665-407 pg/mL - Intermediate probability of acute heart. failure exacerbation. Correlate with clinical. context and patient history. >=300 pg/mL - Heart Failure likely. Correlate with clinical. context and patient history.BNP testing is performed using different testingmethodology at [facility] than at [facility]. Direct result comparisons shouldonly be made within the same method. Performed By: #### L IPID ####[address] [address] CBC AND DIFFERENTIALon 07-26 % AUTOMATED IMMATURE GRAN 0.5 % Normal 0.0 - 0.9 [facility] Comment on above: Result Comment: Perc ent differential counts (%) should be interpreted in the context of the absolute cell counts (cells/L). Performed By: #### L IPID ####[address] [address] % NEUTROPHIL 86.5 % Normal 40.0 - 80.0 [facility] Comment on above: Performed By: #### L IPID ####[address] [address] Basophils/100 WBC Auto (Bld) 0.02 x10E9/L Normal 0.00 - 0.10 [facility] Comment on above: Performed By: #### L IPID ####[address] [address] Basophils/100 WBC Auto (Bld) 0.2 % Normal 0.0 - 2.0 [facility] Comment on above: Performed By: #### L IPID ####[address] [address] Eosinophils Auto #/vol (Bld) 0.02 10*3/uL Normal 0.00 - 0.40 [facility] Comment on above: Performed By: #### L IPID ####[address] [address] Eosinophils/100 WBC Auto (Bld) 0.2 % Normal 0.0 - 6.0 [facility] Comment on above: Performed By: #### L IPID ####[address] [address] Lymphocytes Auto #/vol (Bld) 1.11 10*3/uL Normal 0.80 - 3.00 [facility] Comment on above: Performed By: #### L IPID ####[address] [address] Lymphocytes/100 WBC Auto (Bld) 10.6 % Normal 13.0 - 44.0 [facility] Comment on above: Performed By: #### L IPID ####[address] [address] Monocytes Auto #/vol (Bld) 0.21 10*3/uL Normal 0.05 - 0.80 [facility] Comment on above: Performed By: #### L IPID ####[address] [address] Monocytes/100 WBC Auto (Bld) 2.0 % Normal 2.0 - 10.0 [facility] Comment on above: Performed By: #### L IPID ####[address] [address] Neutrophils Auto #/vol (Bld) 9.11 10*3/uL High 1.60 - 5.50 [facility] Comment on above: Performed By: #### L IPID ####[address] [address] Erythrocyte distribution width Auto Ratio (RBC) 13.3 % Normal 11.5 - 14.5 [facility] Comment on above: Performed By: #### L IPID ####[address] [address] Hematocrit Auto Volume Fraction (Bld) 34.2 % Low 36.0 - 46.0 [facility] Comment on above: Performed By: #### L IPID ####[address] [address] Hemoglobin mass conc (Bld) 11.0 g/dL Low 12.0 - 16.0 [facility] Comment on above: Performed By: #### L IPID ####[address] [place] [address] MCHC Auto mass conc (RBC) 32.2 g/dL Normal 32.0 - 36.0 [facility] Comment on above: Performed By: #### L IPID ####[id number] [place] [address] MCV Auto Entitic volume (RBC) 103 fL High 80 - 100 [facility] Comment on above: Performed By: #### L IPID ####[address] [address] Platelets Auto #/vol (Bld) 317 10*3/uL Normal 150 - 450 [facility] Comment on above: Performed By: #### L IPID ####[address] [address] RBC Auto #/vol (Bld) 3.33 x10E12/L Low 4.00 - 5.20 [facility] Comment on above: Performed By: #### L IPID ####[place] [address] WBC Auto #/vol (Bld) 10.5 10*3/uL Normal 4.4 - 11.3 [facility] Comment on above: Performed By: #### L IPID ####[address] [address] CHEST 1 VIEWon 07-26-2017 CHEST 1 VIEW [...] Electronically signed by: KAVON MANNING MD Normal [facility] COMPREHENSIVE PANELon 2017 Albumin mass conc 3.0 g/dL Low 3.4 - 5.0 [facility] Comment on above: Order Comment: Dr Perry parra notified, 07/26/2017 15:10 Performed By: #### L IPID ####[id number] [place] [address] ALP enzyme act/vol 65 U/L Normal 33 - 136 [facility] Comment on above: Order Comment: Dr Perry parra notified, 07/26/2017 15:10 Performed By: #### L IPID ####[id number] [place] [address] ALT enzyme act/vol 24 U/L Normal 7 - 45 [facility] Comment on above: Order Comment: Dr Perry parra notified, 07/26/2017 15:10 Result Comment: Daniel ents treated with Sulfasalazine may generate falsely decreased results for ALT. Performed By: #### L IPID ####[address] [place] [address] Anion gap 3 molar conc 13 mmol/L Normal 10 - 20 [facility] Comment on above: Order Comment: Dr Perry parra notified, 07/26/2017 15:10 Performed By: #### L IPID ####[address] [place] [address] AST enzyme act/vol 22 U/L Normal 9 - 39 [facility] Comment on above: Order Comment: Dr Perry parra notified, 07/26/2017 15:10 Performed By: #### L IPID ####[address] [place] [address] Bilirubin mass conc 0.4 mg/dL Normal 0.0 - 1.2 [facility] Comment on above: Order Comment: Dr Perry parra notified, 07/26/2017 15:10 Performed By: #### L IPID ####[address] [place] [address] Calcium mass conc 13.2 mg/dL Critically high 8.6 - 10.3 [facility] Comment on above: Order Comment: Dr Perry parra notified, 07/26/2017 15:10 Result Comment: Dr Henrique oneal notified, 07/26/2017 15:10 Performed By: #### L IPID ####[address] [place] [address] Chloride molar conc 98 mmol/L Normal 98 - 107 [facility] Comment on above: Order Comment: Dr Perry parra notified, 07/26/2017 15:10 Performed By: #### L IPID ####[address] [place] [address] Creatinine mass conc 1.94 mg/dL High 0.50 - 1.05 [facility] Comment on above: Order Comment: Dr Perry parra notified, 07/26/2017 15:10 Performed By: #### L IPID ####[id number] [place] [address] GFR- AM. 30 mL/min/1.73m2 Abnormal >60 [facility] Comment on above: Order Comment: Dr Perry parra notified, 07/26/2017 15:10 Result Comment: CALC ULATIONS OF ESTIMATED GFR ARE PERFORMED USING THE MDRD STUDY EQUATION FOR THE IDMS-TRACEABLE CREATININE METHODS. CLIN CHEM 2007;53:766-72 Performed By: #### L IPID ####[id number] [place] [address] GFR-NON AM. 25 mL/min/1.73m2 Abnormal >60 [facility] Comment on above: Order Comment: Dr Perry parra notified, 07/26/2017 15:10 Performed By: #### L IPID ####[id number] [place] [address] Glucose mass conc 111 mg/dL High 74 - 99 [facility] Comment on above: Order Comment: Dr Perry parra notified, 07/26/2017 15:10 Performed By: #### L IPID ####[address] [place] [address] HCO3 molar conc (Bld) 30 mmol/L Normal 21 - 32 [facility] Comment on above: Order Comment: Dr Perry parra notified, 07/26/2017 15:10 Performed By: #### L IPID ####[facility] [place] [address] Potassium molar conc 4.8 mmol/L Normal 3.5 - 5.3 [facility] Comment on above: Order Comment: Dr Perry parra notified, 07/26/2017 15:10 Performed By: #### L IPID ####[facility] [place] [address] Protein mass conc 6.6 g/dL Normal 6.4 - 8.2 [facility] Comment on above: Order Comment: Dr Perry parra notified, 07/26/2017 15:10 Performed By: #### L IPID ####[facility] [place] [address] Sodium molar conc 136 mmol/L Normal 136 - 145 [facility] Comment on above: Order Comment: Dr Perry parra notified, 07/26/2017 15:10 Performed By: #### L IPID ####[id number] [place] [address] Urea nitrogen mass conc 43 mg/dL High 6 - 23 [facility] Comment on above: Order Comment: Dr Perry parra notified, 07/26/2017 15:10 Performed By: #### L IPID ####[id number] [place] [address] CT HEAD WO CONTRASTon 2017 CT HEAD [...] PROCESSElectronically signed by: ALTAGRACIA MELO MD Normal [facility] EMR ADDONon 07-26-2017 ADDON CONFIRMATION REQUEST REC'D Normal [facility] Comment on above: Performed By: #### L IPID ####[id number] [place] [address] LACTATEon 07-26-2017 Lactate molar conc 1.1 mmol/L Normal 0.4 - 2.0 [facility] Comment on above: Result Comment: Hali puncture immediately after or during the administration of Metamizole may lead to falsely low results. Testing should be performed immediately prior to Metamizole dosing. Performed By: #### L IPID ####[address] [address] LIPASEon 07-26-2017 Lipase enzyme act/vol 57 U/L Normal 9 - 82 [facility] Comment on above: Result Comment: Hali puncture immediately after or during the administration of Metamizole may lead to falsely low results. Testing should be performed immediately prior to Metamizole dosing. Performed By: #### L IPID ####[id number] [place] [address] PT/INRon 07-26-2017 INR Coag RelTime (PPP) 1.2 {INR} High 0.9 - 1.1 [facility] Comment on above: Performed By: #### L IPID ####[address] [address] Prothrombin time (PT) Coag time (PPP) 13.3 s High 9.8 - 12.7 [facility] Comment on above: Performed By: #### L IPID ####[address] [address] Patient Profile - Adult v2on 07-26-2017 Protein mass conc Profile:Initial Info :How to be AddressedAliceSpoken Language PreferredEnglish (1)Are you currently using the Personal Electronic Health Record or [facility]ENTERnoStated Reason for AdmissionI wasn't respondingArrived Fromemergency departmentPatient Belongingsremains with patientPatient Belongings Remaining with Patientclothing; dental applianceMedications Brought to Hospitalno General Health:Weight in kg40.6 kilogram(s)Weight in lbs89.7 pound(s)Height in feet4 feetHeight in ccocfi40 inch(es)Height in cm147.3 centimeter(s)BMI (kg/m2)18.712 square meterWeight Methodactual (measured)Scale TypebedHeight Methodestimated [facility] Based Care:How would you like [...] Arrangementsnursing homeResource/Environmental ConcernsnoneAnticipated Transition Toinpatient rehabilitation facility; parts counterman carefacilityServices Anticipated at Transitioncase manager rail; wildlife biology internship; skilled nursingSignificant IndicatorsComplete Information Review:? Allergies, Home [...] - Adult v2 07/09/2017 10:08 AM Normal [facility] Provider Note - EDon 018 Protein mass conc Time Seen:? Time Uwfy25-Ckw-8214 13:49 Triage Vital Signs:? Triage Information Most [...] Signs:? Objective Information T PRBP SpO2O2(LPM) %FiO2 Pmeqtm50-Wsc-5105 14:05:00-36.09223561/57 98 supplemental O2 Lab Results:? Results I have reviewed these laboratory results: Brain Natriuretic Peptide [Myzxd01-Hmm-1452 15:10:00], Urinalysis [Drawn 26-Jul-2017 15:06:00], Urinalysis,Microscopic [Drawn 26-Jul-2017 15:06:00], Comprehensive Metabolic Panel [Bbbuq17-Fla-8357 14:34:00], Complete Blood Count + Differential [Drawn 41-Gpy-463474:34:00], PT + INR, Plasma [Drawn 26-Jul-2017 14:34:00], RBC Morphology [Fydly50-Ipf-9161 14:34:00], Lipase, Serum [Drawn 26-Jul-2017 14:34:00], Lactate,Level [Drawn 26-Jul-2017 14:34:00], Troponin I, Serum [Drawn 05-Tpp-147959:34:00].Brain Natriuretic Hjnakbd18-Qcc-2638 15:10:00 ResultValueReference RangeBrain Natriuretic Dvskinz888 - 99 pg/mL Iiaztttmuy89-Swu-9142 15:06:00 ResultValueReference RangeColor, UrineYELLOW Reference Range: STRAW,YELLOWAppearance, UrineHAZYCLEARSpecific [place], Urine1.0091.005 - 1.035pH, Urine6.05.0 - 8.0Protein, UrineNEGATIVENEGATIVE mg/dLGlucose, UrineNEGATIVENEGATIVE mg/dLBlood, UrineSMALL(1+) ANEGATIVEKetones, UrineNEGATIVENEGATIVE mg/dLBilirubin, UrineNEGATIVENEGATIVEUrobili nogen, Urine<2.00.0 - 1.9 mg/dLNitrite, UrineNEGATIVENEGATIVELeukocy te Esterase, UrineMODERATE(2+) ANEGATIVE Urinalysis, Ndqaqqazgca66-Bhp-6172 15:06:00 ResultValueReference RangeWhite Cells8 A0 - 5 /HPFRed Blood Cells2 A0 - 5 /HPFEpithelial Cells, Xsvddqto1Hfzyjkkgia Cells, Transitional<1Bacteria, Urine4+ AMucousFEWHyaline Casts3+ AAmorphous Crystals1+ Comprehensive Metabolic Zowri83-Pvx-3400 14:34:00 ResultValueReference RangeLab Comment:Dr Vance notified, 07/26/2017 15:10Glucose, Diwbl661 H74 - 99 mg/sHSI508820 - 145 mmol/LK4.83.5 - 5.3 mmol/DND8869 - 107 mmol/LBicarbonate, Ztfkf2411 - 32 mmol/LAnion Gap, Rgalk4594 - 20 mmol/LBUN43 H6 - 23 mg/dLCREAT1.94 H0.50 - 1.05 mg/dLGFR-Non Qgsgahul59 A>60 mL/min/1.13a4GOG-Eccezva Ckdreyka32 A>60 mL/min/1.45l7Hudzyka, Serum13.2 HH8.6 - 10.3 mg/dLALB3.0 L3.4 - 5.0 g/eIUARI6340 - 136 U/LT Pro6.66.4 - 8.2 g/Rashi Bili0.40.0 - 1.2 mg/dLAlanine Aminotransferase, Feklj871 - 45 U/LAspartate Transaminase, Lafra385 - 39 U/L Complete Blood Count + Kxnnyyhwbiab66-Vxj-3129 14:34:00 ResultValueReference RangeWhite Blood Cell Count10.54.4 - 11.3 x10E9/LRed Blood Cell Count3.33 L4.00 - 5.20 x10E12/LHGB11.0 L12.0 - 16.0 g/dLHCT34.2 L36.0 - 46.0 %TBY582 H80 - 100 kMOUFI49.232.0 - 36.0 g/jLJLH513675 - 450 x10E9/LRDW-CV13.311.5 - 14.5 %Neutrophil %86.540.0 - 80.0 %Immature Granulocytes %0.50.0 - 0.9 %Lymphocyte %10.613.0 - 44.0 %Monocyte %2.02.0 - 10.0 %Eosinophil %0.20.0 - 6.0 %Basophil %0.20.0 - 2.0 %Neutrophil Count9.11 H1.60 - 5.50 x10E9/LLymphocyte Count1.110.80 - 3.00 x10E9/LMonocyte Count0.210.05 - 0.80 x10E9/LEosinophil Count0.020.00 - 0.40 x10E9/LBasophil Count0.020.00 - 0.10 x10E9/L PT + INR, Swdsrr56-Vkt-4004 14:34:00 ResultValueReference RangeProthrombin Time, Meafgz39.3 H9.8 - 12.7 secInternational Normalized Ratio, Plasma1.2 H0.9 - 1.1 RBC Iscqemxelb53-Pmz-6201 14:34:00 ResultValueReference RangeRed Blood Cell MorphologySEE COMMENT NO SIGNIFICANT RBC ABNORMALITIES SEEN ONSMEAR REVIEW. Lipase, Bajdd10-Tdd-6549 14:34:00 ResultValueReference RangeLipase, Mmmew282 - 82 U/L Lactate, Nbcrk56-Apv-7726 14:34:00 ResultValueReference RangeLactate, Level1.10.4 - 2.0 mmol/L Troponin I, Forqd15-Gup-8394 14:34:00 ResultValueReference RangeTroponin I, Serum0.030.00 - 0.03 ng/mL Diagnostic Imaging Results Review: Radiology Results:? Results Impression: NO ACUTE INTRACRANIAL PROCESS CT Head without Contrast [Jul 26 2017 3:46PM] Impression: Mildly displaced fractures of the right 8th and 9th ribs. Otherwiseno definite active disease in the chest identified. Xray Chest 1 View [Jul 26 2017 3:26PM] EKG Results:? EKG Date/Pmhh42-Smr-6250 13:53? Rate59? CommentsSinus bradycardia with a right [...] vancomycin earlier fewweeks prior presenting from a [facility] facility at the recommendation ofher primary care [...] Triage - ED 07/26/2017 2:05 PM Normal [facility] RED CELL MORPHOLOGYon 2017 RBC morphology finding Nom (Bld) SEE COMMENT Normal [facility] Comment on above: Result Comment: NO S IGNIFICANT RBC ABNORMALITIES SEEN ONSMEAR REVIEW. Performed By: #### L IPID ####[facility] [place] [address] TROPONIN Ion 07-26-2017 Troponin I.cardiac mass conc 0.03 ng/mL Normal 0.00 - 0.03 [facility] Comment on above: Result [...] testing is performed using differenttesting methodology at [facility] than at [facility]. Direct result comparisons should onlybe made within the same method. Performed By: #### L IPID ####[facility] [place] [address] UA MICROSCOPICon 07-26-2017 AMORPHOUS CRYSTAL 1+ /HPF Normal [facility] Comment on above: Performed By: #### L IPID ####[facility] [place] [address] BACTERIA 4+ /HPF Abnormal [facility] Comment on above: Performed By: #### L IPID ####[id number] [place] [address] HYALINE CAST 3+ /LPF Abnormal [facility] Comment on above: Performed By: #### L IPID ####[facility] [place] [address] MUCUS FEW Normal [facility] Comment on above: Performed By: #### L IPID ####[facility] [place] [address] RBC 2 /HPF Abnormal 0-5 [facility] Comment on above: Performed By: #### L IPID ####[id number] [place] [address] SQUAMOUS EPITH. CELLS 1 /HPF Normal [facility] Comment on above: Performed By: #### L IPID ####[id number] [place] [address] TRANSITIONAL EPITH.CELLS <1 Normal [facility] Comment on above: Performed By: #### L IPID ####[address] [place] [address] WBC 8 /HPF Abnormal 0-5 [facility] Comment on above: Performed By: #### L IPID ####[address] [place] [address] URINALYSISon 07-26-2017 APPEARANCE HAZY Normal CLEAR [facility] Comment on above: Performed By: #### L IPID ####[address] [place] [address] BILIRUBIN Negative Normal NEGATIVE [facility] Comment on above: Performed By: #### L IPID ####[id number] [place] [address] BLOOD SMALL(1+) Abnormal NEGATIVE [facility] Comment on above: Performed By: #### L IPID ####[address] [place] [address] COLOR YELLOW Normal STRAW,YELL OW [facility] Comment on above: Performed By: #### L IPID ####[facility] [facility] [place] [address] GLUCOSE Negative Normal NEGATIVE [facility] Comment on above: Performed By: #### L IPID ####[facility] [facility] [place] [address] KETONES Negative Normal NEGATIVE [facility] Comment on above: Performed By: #### L IPID ####[facility] [place] [address] LEUKOCYTE ESTERASE MODERATE(2+) Abnormal NEGATIVE [facility] Comment on above: Performed By: #### L IPID ####[facility] [place] [address] NITRITE Negative Normal NEGATIVE [facility] Comment on above: Performed By: #### L IPID ####[facility] [place] [address] pH 6.0 Normal 5.0 - 8.0 [facility] Comment on above: Performed By: #### L IPID ####[address] [place] [address] Protein mass conc Negative Normal NEGATIVE [facility] Comment on above: Performed By: #### L IPID ####[address] [place] [address] SPECIFIC GRAVITY 1.009 Normal 1.005 - 1.035 [facility] Comment on above: Performed By: #### L IPID ####[facility] [facility] [place] [address] UROBILINOGEN <2.0 Normal 0.0 - 1.9 [facility] Comment on above: Performed By: #### L IPID ####[address] [facility] [place] [address] URINE CULTURE,BACTERIALon URINE CULTURE,BACTERIAL PATIENT: KATHERINE JUDGE LOCATION: [address]#: [id number] : [birth year] AGE: SEX: F ORDERED BY: TOMMY MENDEZ: URINE COLLECTED: 07/26/17 15:06ANTIBIOTICS AT ESDRAS.: RECEIVED : 07/27/17 09:18SITE: Straight Cath R E S U L T S URINE CULTURE,BACTERIAL FINAL 07/28/17 09:31 MULTIPLE ORGANISMS PRESENT, PROBABLE CONTAMINATION PLEASE REPEAT CULTURE. Normal [facility] Comment on above: Performed By: #### L IPID ####[facility] [place] [address] URINE CULTURE,BACTERIAL PATIENT: KATHERINE JUDGE LOCATION: [address]#: [id number] : [birth year] AGE: SEX: F ORDERED BY: TOMMY MENDEZ: URINE COLLECTED: 07/26/17 15:06ANTIBIOTICS AT ESDRAS.: RECEIVED : 07/27/17 09:44SITE: R E S U L T S URINE CULTURE,BACTERIAL FINAL 07/28/17 09:24 NO SIGNIFICANT GROWTH. Normal [facility] Comment on above: Performed By: #### L IPID ####[id number] [place] [address] BASIC METABOLIC PANELon 06-0 Anion gap 3 molar conc 14 mmol/L Normal 10 - 20 [facility] Comment on above: Performed By: #### L IPID ####[facility] [place] [address] Calcium mass conc 8.9 mg/dL Normal 8.6 - 10.3 [facility] Comment on above: Performed By: #### L IPID ####[address] [place] [address] Chloride molar conc 102 mmol/L Normal 98 - 107 [facility] Comment on above: Performed By: #### L IPID ####[facility] [place] [address] Creatinine mass conc 0.97 mg/dL Normal 0.50 - 1.05 [facility] Comment on above: Performed By: #### L IPID ####[address] [place] [address] GFR- AM. 67 mL/min/1.73m2 Normal >60 [facility] Comment on above: Result Comment: CALC ULATIONS OF ESTIMATED GFR ARE PERFORMED USING THE MDRD STUDY EQUATION FOR THE IDMS-TRACEABLE CREATININE METHODS. CLIN CHEM 2007;53:766-72 Performed By: #### L IPID ####[facility] [place] [address] GFR-NON AM. 55 mL/min/1.73m2 Abnormal >60 [facility] Comment on above: Performed By: #### L IPID ####[address] [place] [address] Glucose mass conc 98 mg/dL Normal 74 - 99 [facility] Comment on above: Performed By: #### L IPID ####[address] [place] [address] HCO3 molar conc (Bld) 22 mmol/L Normal 21 - 32 [facility] Comment on above: Performed By: #### L IPID ####[address] [place] [address] Potassium molar conc 4.2 mmol/L Normal 3.5 - 5.3 [facility] Comment on above: Performed By: #### L IPID ####[address] [place] [address] Sodium molar conc 134 mmol/L Low 136 - 145 [facility] Comment on above: Performed By: #### L IPID ####[address] [place] [address] Urea nitrogen mass conc 31 mg/dL High 6 - 23 [facility] Comment on above: Performed By: #### L IPID ####[address] [place] [address] Daily Progress Note-Surgeryo n 07-16-2017 Protein mass conc Service: Surgery Sub jective Data:KATHERINE JUDGE is a 82 year old Female who is Hospital Day # 8. MUCH LESS CONFUSED / CR ELEVATED. Objective Data: Objective Information:T TKLGKyN1Dmmcr21.05390527/669 2%Date/Time07/16 6: 6: 6: 6: 6:51Range(36.2C - [...] Updated: 16-Jul-2017 07:23 by Manny Arana) Normal [facility] BASIC METABOLIC PANELon 06-0 Anion gap 3 molar conc 16 mmol/L Normal 10 - 20 [facility] Comment on above: Performed By: #### L ACT ####[address] [address] Calcium mass conc 9.4 mg/dL Normal 8.6 - 10.3 [facility] Comment on above: Performed By: #### L ACT ####[id number] [place] [address] Chloride molar conc 99 mmol/L Normal 98 - 107 [facility] [place] Comment on above: Performed By: #### L ACT ####[address] [address] Creatinine mass conc 1.42 mg/dL High 0.50 - 1.05 [facility] Comment on above: Performed By: #### L ACT ####[address] [place] [address] GFR- AM. 42 mL/min/1.73m2 Abnormal >60 [facility] Comment on above: Result Comment: CALC ULATIONS OF ESTIMATED GFR ARE PERFORMED USING THE MDRD STUDY EQUATION FOR THE IDMS-TRACEABLE CREATININE METHODS. CLIN CHEM 2007;53:766-72 Performed By: #### L ACT ####[address] [address] GFR-NON AM. 35 mL/min/1.73m2 Abnormal >60 [facility] Comment on above: Performed By: #### L ACT ####[address] [place] [address] Glucose mass conc 91 mg/dL Normal 74 - 99 [facility] Comment on above: Performed By: #### L ACT ####[address] [place] [address] HCO3 molar conc (Bld) 24 mmol/L Normal 21 - 32 [facility] Comment on above: Performed By: #### L ACT ####[facility] [place] [address] Potassium molar conc 5.1 mmol/L Normal 3.5 - 5.3 [facility] Comment on above: Performed By: #### L ACT ####[address] [place] [address] Sodium molar conc 134 mmol/L Low 136 - 145 [facility] Comment on above: Performed By: #### L ACT ####[address] [address] Urea nitrogen mass conc 27 mg/dL High 6 - 23 [facility] Comment on above: Performed By: #### L ACT ####[address] [address] CBCon 07-15-2017 Erythrocyte distribution width Auto Ratio (RBC) 15.1 % High 11.5 - 14.5 [facility] Comment on above: Performed By: #### L ACT ####[address] [address] Hematocrit Auto Volume Fraction (Bld) 32.1 % Low 36.0 - 46.0 [facility] Comment on above: Performed By: #### L ACT ####[address] [address] Hemoglobin mass conc (Bld) 10.5 g/dL Low 12.0 - 16.0 [facility] Comment on above: Performed By: #### L ACT ####[address] [address] MCHC Auto mass conc (RBC) 32.7 g/dL Normal 32.0 - 36.0 [facility] Comment on above: Performed By: #### L ACT ####[address] [address] MCV Auto Entitic volume (RBC) 105 fL High 80 - 100 [facility] Comment on above: Performed By: #### L ACT ####[address] [address] Platelets Auto #/vol (Bld) 715 10*3/uL High 150 - 450 [facility] Comment on above: Performed By: #### L ACT ####[facility] [place] [address] RBC Auto #/vol (Bld) 3.06 x10E12/L Low 4.00 - 5.20 [facility] Comment on above: Performed By: #### L ACT ####[facility] [place] [address] WBC Auto #/vol (Bld) 12.9 10*3/uL High 4.4 - 11.3 [facility] Comment on above: Performed By: #### L ACT ####[facility] [place] [address] Daily Progress Note-Samarao n 07-15-2017 Protein mass conc Service: Surgery Sub jective Data:KATHERINE JUDGE is a 82 year old Female who is Hospital Day # 7. Patient only has complaint of sinus congestion. Reports abd pain is unchangedfrom yesterday. Denies fever, chills, nausea, vomiting. Passing gas, unsure ifshe passed stool. Denies feeling any pain at this time. Objective Data: Objective Information: T [id number]/749 2%Date/Time07/15 7: 7: 7: 7: 7:22Range(36C - [...] a Day11. Simvastatin: 40 mg Oral At Anqktdo62. Vancomycin Oral Liquid: 125 mg Oral Every [...] to be discussed with Dr Sumit Hendrix, [facility] Medicine PGY-1#[id number] Electronic Signatures:Manny Arana) (Signed 15-Jul-2017 17:05)Authored: Signature/Cosignature/Attest ationCo-Signer: Service, Subjective Data, Objective Data, Assessment and Plan,Signature/Cosignature/A ttestationAftab Hendrix (Resident)) (Signed 15-Jul-2017 08:43)Authored: Service, Subjective Data, Objective Data, Assessment and Plan,Signature/Cosignature/A ttestation Last Updated: 15-Jul-2017 17:05 by Manny Arana) Normal [facility] Discharge Oyctxrh5zj 018 Protein mass conc Discharge Orders:Ant icipated Discharge Date:? 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 On the floor she experienced some altered [...] be in satisfactory condition [facility] for continued monitoring and care. It [...] Therapy Orders:? Occupational Therapy OrdersEval and Treat ([facility]) 2times/day? Physical Therapy OrdersEval and Treat ([facility]) 2times/day Provider Follow Up:? Physician To Follow at Skilled/RehabAttending Physician at Skilled/Rehab Provider FINAL REVIEW of Orders:Final Review:? Final Review of Medication Reconciliation and Orders Completedby Physician? Reviewing ProviderAftab Hendrix DO (Resident) at 17-Jul-2017 10:39:47 Appointments:Follow-Up Appointment 01:? Physician/Dept/Seble Arana? Scheduled Date/Mbnq04-Kfq-5731 13:45? [facility] [phone] Gold Form - Nursing Summary:Special Treatments/Procedures (in past 14 days):? Chemotherapyno? Dialysisno? IV Medicationno? Oxygen Therapyno? Transfusionsno? Feverno? Radiationno? Ventilatorno? Tracheostomyno? Suctioningno Nutrition:? Nutritional Statuspoor appetite Sensory/Comfort:? Visionadequate? Hearingadequate? Speechclear? Painyes? Pain Type6-7? Pain LocationGeneralized back pain? Whenfrequently? Pain Relieved Bymedication and positioning Elimination:? Bladdercontinent? Bowelcontinent? Last Bowel Ntsuxhus17-Qyl-4692? Toiletingdependent Safety:? Siderailsyes? Siderails Number/Reason2? Restraintsno? Sitterno Medication/Hygiene/Mobility: ? Medication Administrationsupervision only Gold Form - Rn Admit Summary:Referral Information:? Referral [facility]? Referring Facility [facility]? Contact Tabitha Muller [facility]? Contact Phone [phone] Mental & Functional Status:? Mental/Behavioral Statusalert, cooperative? Functional Status Prior To AdmissionIndependent? Mental/Functional CommentIntermittent confusion Electronic Signatures:Ayse Martinez (RN) (Signed 16-Jul-2017 15:24)Authored: Manny Haley) (Signed 17-Jul-2017 11:26)Authored: Gold Form Orders, Provider FINAL REVIEW of Orders, Gold Form -Nursing SummaryCo-Signer: Discharge Orders, Gold Form Orders, Provider FINAL REVIEW ofOrders, Gold Form - Rn Admit SummaryAftab Hendrix (Resident)) (Signed 17-Jul-2017 10:40)Authored: Discharge Orders, Hospital Course (Home Care/Gold Form), ProviderFINAL REVIEW of Wanda Medrano ([employer]) (Signed 15-Jul-2017 15:51)Authored: Gold Form Orders, Gold Form - Rn Admit Summary Last Updated: 17-Jul-2017 11:26 by Manny Arana) Normal [facility] Nutrition Therapy-Follow Upo n 07-15-2017 Nutrition Therapy-Follow Up Assessment Subjective/Objective:Note Type: Follow Up Note Authored by: Registered Dietitian NutritionistPager Number: [phone] Nutrition Note:The patient is a 82 year [...] stapledileocolonic anastomosis on 07/03/17. Was transferred to [facility] acute care.Chest xray on 07/06 showed worsening CHF; IV fluids held and IV Lasix started.Was found with + C.diff on 07/08, started on PO vancom[facility]. [facility] for [...] 2 Abdomen Pain 3 Cholelithiasis: Onset Date: 73-Yhx-2225Gxnvg failure: Description: Heart failurePNEUMONIA:Diabetes mellitus: Description: Diabetes [...] bowel obstruction (disorder):Acute bowel obstruction: Onset Date: 44-Cms-3982Pdvca bowel obstruction: Objective Information: T [id number]/749 4%Date/Time07/15 14: 16:5907/15 14: 16: 14:48Range(36.6C - [...] ((lbs)) 98.7 ---- Intake and Output -----Mn/Dy/Year TimeIntakeOutL[facility] 2017 10:00 [id number] The Intake and Output Totals for the last 24 hours are:VeycmhUeuiteZok231sljugn ll Height/Weight:Height in feet: 5 feetHeight in [...] (L) Nutrition Labs:Special Chemistry: 03-Jul-2017 10:15, Hemoglobin T8ZQaypcrcozn A1C, Level5.3 Diagnosis of Diabetes-Adults Non-Diabetic: < or = 5.6% Increased risk for developing diabetes: 5.7-6.4% Diagnostic of diabetes: > or = 6.5%. Monitoring of Diabetes Age (y) Therapeutic Goal (%) Adults: >18 <7.0 Pediatrics: 13-18 <7.5 7-12 <8.0 0- 6 7.5-8.5 [place] [employer]. Diabetes Care 33(S1), Feb 2009.Estimated Average Zfmtxue515 Current Active Medications/PN:Clopidogrel, Tablet (PLAVIX)DOSE = 75 mg Oral Daily, 89-Izq-0261Rlhdmyfvkz SubCutaneous, (LOVENOX)DOSE = 40 mg SubCutaneous Every 24 HoursNotes from Pharmacy: NOTE DOSAGE STRENGTH, 82-Skx-2480Korhruzuug, Tablet (LASIX)DOSE = 40 mg Oral Daily, 74-Kif-0634Qmptuxlsgv Mononitrate Extended Release, Tablet, Extended Release (IMDUR)DOSE = 60 mg Oral Daily, 66-Yfw-1699Ilnizqtqbp, Tablet (PRINIVIL, ZESTRIL)DOSE = 10 mg Oral Daily, 06-Fzw-0622Rbkzlnabnm Tartrate, Tablet (LOPRESSOR)DOSE = 50 mg Oral Every 12 Hours, 96-Ton-9433Rdsjiyfibzgv, Enteric Coated Tablet (PROTONIX)DOSE = 40 mg Oral Daily, 98-Wnt-6308Eptgewjfcsf, Tablet (ZOCOR)DOSE = 40 mg Oral At Bedtime, 34-Vrz-6845Rfimjhduyj Oral Liquid, DOSE = 125 mg Oral Every 6 Hours, 06-Uva-6899Erjyjflnz Chloride Extended Release, Tablet, Extended ReleaseDOSE = 40 mEq Oral 2 Times a Day, 93-Smk-5520Sldvgxfgln, Capsule (NEURONTIN)DOSE = 300 mg Oral 3 Times a Day, 25-Mmw-5914Lponga Substitute, SolutionDOSE = 15 mL Oral 4 Times a Day, 15-Jul-2017 Nutrition Orders:Oral Nutritional Supplements, RoutineResource BreezeFlavor Preference: [place]; [place], 2 Times a DaySpecial Instructions: Please send Boost Breeze orange at breakfast and BoostArtieze york at dinner, 44-Jqy-3471Hue-Stat 101, Oral - Administer as a scheduled medication. Pour packet into a30 ML medicine cup. Tube Feeding - Standard flush before and afteradministering 3 Times a Day Vfalkuq7MF (Oral), 27-Qbo-1632Ctdf May Participate in Room Service W. Assistance, YesOrder entered from Admission Screens., 39-Zcf-7376Otlp, High Calorie; High Protein, 32-Fjt-9959Njer Nutritional Supplements, RoutineBoost PuddingFlavor Preference: Vanilla, DailySpecial [...] 18:05 by Silvia Tyler ([place], [place]) Normal [facility] BASIC METABOLIC PANELon 06-0 Anion gap 3 molar conc 14 mmol/L Normal 10 - 20 [facility] Comment on above: Performed By: #### L ACT ####[address] [place] [address] Calcium mass conc 8.9 mg/dL Normal 8.6 - 10.3 [facility] Comment on above: Performed By: #### L ACT ####[address] [place] [address] Chloride molar conc 102 mmol/L Normal 98 - 107 [facility] Comment on above: Performed By: #### L ACT ####[address] [place] [address] Creatinine mass conc 0.69 mg/dL Normal 0.50 - 1.05 [facility] Comment on above: Performed By: #### L ACT ####[address] [place] [address] GFR- AM. >60 Normal >60 [facility] Comment on above: Result Comment: CALC ULATIONS OF ESTIMATED GFR ARE PERFORMED USING THE MDRD STUDY EQUATION FOR THE IDMS-TRACEABLE CREATININE METHODS. CLIN CHEM 2007;53:766-72 Performed By: #### L ACT ####[facility] [place] [address] GFR-NON AM. >60 Normal >60 [facility] Comment on above: Performed By: #### L ACT ####[facility] [place] [address] Glucose mass conc 123 mg/dL High 74 - 99 [facility] Comment on above: Performed By: #### L ACT ####[address] [place] [address] HCO3 molar conc (Bld) 27 mmol/L Normal 21 - 32 [facility] Comment on above: Performed By: #### L ACT ####[address] [place] [address] Potassium molar conc 3.8 mmol/L Normal 3.5 - 5.3 [facility] Comment on above: Performed By: #### L ACT ####[address] [address] Sodium molar conc 139 mmol/L Normal 136 - 145 [facility] Comment on above: Performed By: #### L ACT ####[address] [place] [address] Urea nitrogen mass conc 14 mg/dL Normal 6 - 23 [facility] Comment on above: Performed By: #### L ACT ####[address] [address] CBCon 07-13-2017 Erythrocyte distribution width Auto Ratio (RBC) 14.9 % High 11.5 - 14.5 [facility] Comment on above: Performed By: #### L ACT ####[address] [place] [address] Hematocrit Auto Volume Fraction (Bld) 31.3 % Low 36.0 - 46.0 [facility] Comment on above: Performed By: #### L ACT ####[address] [place] [address] Hemoglobin mass conc (Bld) 11.0 g/dL Low 12.0 - 16.0 [facility] Comment on above: Performed By: #### L ACT ####[address] [address] MCHC Auto mass conc (RBC) 35.1 g/dL Normal 32.0 - 36.0 [facility] Comment on above: Performed By: #### L ACT ####[address] [place] [address] MCV Auto Entitic volume (RBC) 100 fL Normal 80 - 100 [facility] Comment on above: Performed By: #### L ACT ####[address] [place] [address] Platelets Auto #/vol (Bld) 614 10*3/uL High 150 - 450 [facility] Comment on above: Result Comment: Plat elet count verified by smear review. Performed By: #### L ACT ####[address] [place] [address] RBC Auto #/vol (Bld) 3.14 x10E12/L Low 4.00 - 5.20 [facility] Comment on above: Performed By: #### L ACT ####[address] [place] [address] WBC Auto #/vol (Bld) 11.0 10*3/uL Normal 4.4 - 11.3 [facility] Comment on above: Performed By: #### L ACT ####[address] [address] Daily Progress Note-Samarao n 07-13-2017 Protein mass [...] have been stopped. Objective Data: Objective Information:T [id number]/799 6%Date/Time07/13 7: 7: 7: 7: 7:03Range(36.7C - [...] Updated: 13-Jul-2017 16:51 by Manny Arana) Normal [facility] GLUCOSE-POCTon 07-13-2017 Glucose mass conc 118 mg/dL High 74 - 99 [facility] Comment on above: Result Comment: This assay has not been validated for use with critically ill patients. Clinical correlation or lab draw is recommended. Performed By: #### L ACT ####[facility] [place] [address] RED CELL MORPHOLOGYon 2017 GIANT PLATELETS Few Normal [facility] Comment on above: Performed By: #### L ACT ####[facility] [place] [address] POLYCHROMASIA Mild Normal [facility] Comment on above: Performed By: #### L ACT ####[address] [place] [address] RBC morphology finding Nom (Bld) See Below Normal [facility] Comment on above: Performed By: #### L ACT ####[facility] [place] [address] US ABD ALEXANDER F/Uon 07-13-2017 US ABD [...] ically signed by: CRYSTAL ROONEY MD Normal [facility] Daily Progress Note-Surgeryo n 07-12-2017 Protein mass conc Consult Type: subseq uent visit/care Service: Surgery Subjective Data:KATHERINE JUDGE is a 82 year old Female who is Hospital Day # 4. HAS BEEN INTERMITTENTLY CONFUSED / STRANGE ORAL MOUTH MOVEMENTS / ON GABAPENTINAND WELLBUTRIN WHICH WAS STOPPED / TAKING PO / HAVING BMS. Objective Data: Objective Information:T [id number]/779 0%Date/Time07/12 7:1263 7:1263 7:1263 7:1263 7:12Range(37C - [...] Updated: 12-Jul-2017 07:45 by Manny Arana) Normal [facility] BASIC METABOLIC PANELon 06-0 Anion gap 3 molar conc 11 mmol/L Normal 10 - 20 [facility] Comment on above: Performed By: #### C MP ####[address] [place] [address] Calcium mass conc 7.5 mg/dL Low 8.6 - 10.3 [facility] Comment on above: Performed By: #### C MP ####[address] [place] [address] Chloride molar conc 101 mmol/L Normal 98 - 107 [facility] Comment on above: Performed By: #### C MP ####[address] [place] [address] Creatinine mass conc 0.67 mg/dL Normal 0.50 - 1.05 [facility] Comment on above: Performed By: #### C MP ####[address] [place] [address] GFR- AM. >60 Normal >60 [facility] Comment on above: Result Comment: CALC ULATIONS OF ESTIMATED GFR ARE PERFORMED USING THE MDRD STUDY EQUATION FOR THE IDMS-TRACEABLE CREATININE METHODS. CLIN CHEM 2007;53:766-72 Performed By: #### C MP ####[address] [place] [address] GFR-NON AM. >60 Normal >60 [facility] Comment on above: Performed By: #### C MP ####[address] [place] [address] Glucose mass conc 119 mg/dL High 74 - 99 [facility] Comment on above: Performed By: #### C MP ####[address] [place] [address] HCO3 molar conc (Bld) 28 mmol/L Normal 21 - 32 [facility] Comment on above: Performed By: #### C MP ####[address] [place] [address] Potassium molar conc 3.2 mmol/L Low 3.5 - 5.3 [facility] Comment on above: Performed By: #### C MP ####[address] [address] Sodium molar conc 137 mmol/L Normal 136 - 145 [facility] Comment on above: Performed By: #### C MP ####[address] [place] [address] Urea nitrogen mass conc 11 mg/dL Normal 6 - 23 [facility] Comment on above: Performed By: #### C MP ####[address] [place] [address] CBCon 07-11-2017 Erythrocyte distribution width Auto Ratio (RBC) 14.3 % Normal 11.5 - 14.5 [facility] Comment on above: Performed By: #### C MP ####[address] [place] [address] Hematocrit Auto Volume Fraction (Bld) 29.2 % Low 36.0 - 46.0 [facility] Comment on above: Performed By: #### C MP ####[address] [place] [address] Hemoglobin mass conc (Bld) 9.9 g/dL Low 12.0 - 16.0 [facility] Comment on above: Performed By: #### C MP ####[address] [place] [address] MCHC Auto mass conc (RBC) 33.9 g/dL Normal 32.0 - 36.0 [facility] Comment on above: Performed By: #### C MP ####[address] [address] MCV Auto Entitic volume (RBC) 101 fL High 80 - 100 [facility] Comment on above: Performed By: #### C MP ####[address] [address] Nucleated RBC/100 WBC Ratio (Bld) 0.2 /100 WBC Abnormal 0.0-0.0 [facility] Comment on above: Performed By: #### C MP ####[address] [address] Platelets Auto #/vol (Bld) 351 10*3/uL Normal 150 - 450 [facility] Comment on above: Performed By: #### C MP ####[address] [address] RBC Auto #/vol (Bld) 2.89 x10E12/L Low 4.00 - 5.20 [facility] Comment on above: Performed By: #### C MP ####[address] [address] WBC Auto #/vol (Bld) 13.8 10*3/uL High 4.4 - 11.3 [facility] Comment on above: Performed By: #### C MP ####[address] [address] GLUCOSE-POCTon 07-11-2017 Glucose mass conc 113 mg/dL High 74 - 99 [facility] Comment on above: Result Comment: This assay has not been validated for use with critically ill patients. Clinical correlation or lab draw is recommended. Performed By: #### C MP ####[address] [address] MAGNESIUMon 07-11-2017 Magnesium mass conc 1.62 mg/dL Normal 1.60 - 2.40 [facility] Comment on above: Performed By: #### C MP ####[place] [address] Daily Progress Note-Melly merino 07-10-2017 Protein mass conc Service: Surgery Sub jective Data:KATHERINE JUDGE is a 82 year old Female who is Hospital Day # 2. Additional Information:Patient has not had any further bowel movements despite positive C. dif, on POvancomycin. Nurse reports patient was confused again overnight pain medicationwas switched to Toradol and Percocet made as needed. Objective Data: Objective Information:T [id number]/819 3%Date/Time07/10 6:5507/10 6:5507/10 6:5507/10 6:5507/10 6:55Range(36C - [...] reviewed these laboratory results: Complete Blood Count [Qsqya15-Xun-2740 04:03:00], Basic Metabolic Panel [Drawn 09-Jul-2017 04:03:00],Magnesium, [...] Last Updated: 10-Jul-2017 12:51 by Manny Arana) [facility] Discharge Planning Noteon Discharge Planning Note Discharge Needs Assessment:? Discharge Planning Assessment Ojgw64-Fxi-0250? Discharge Planning Assessment Completed byJavier PERALTA Patient Learning:? Factors that Impact Ability to Learnnone(1) Other Factors:? Functional Screen: In the recent/past 2-4 weeks, patient or family havenoticedno issues that require a rehabilitation consult at this time(1) Discharge Needs:? [facility]:Discharge Plannin07/10/17 1453 - SWING BED [...] she will be ready to d/c with [facility] on July 17. Family isconcerned that [...] They would [facility]. Referral sent [...] Patient statedthat she has a membership with [facility], I call the [employer]. [facility] is only for 911 calls. They do not provide communitytransportation. Discussed possible [facility] cost of $50 for ambulette and$5.00/mile following. Family is in agreement. Discharge plan: [facility]. Javier Muller RNCC Electronic Signatures:Som Chaudhari ([employer]) (Signed 14-Jul-2017 13:32)Authored: Discharge Planning Wanda Cheung ([employer]) (Signed 17-Jul-2017 11:49)Authored: Discharge Planning Note Last Updated: 17-Jul-2017 11:49 by Wanda Muller ([employer]) References:1. Data Referenced From Admission Risk Screen - Adult 07/09/2017 09:59 AM Normal [facility] Nutrition Therapy-Assessment - -Swing Bedon 07-10-2017 Nutrition Therapy-Assessment - -Swing Bed Assessment Subjective/Objective:Note Type: Assessment -Swing Bed Note Authored by: Registered Dietitian NutritionistPager Number: [phone] Nutrition Note:The patient is a 82 year [...] stapledileocolonic anastomosis on 07/03/17. Was transferred to [facility] acute care.Chest xray on 07/06 showed worsening CHF; IV fluids held and IV Lasix started.Was found with + C.diff on 07/08, started on PO vancomycin. [facility] for [...] bowel obstruction (disorder):Acute bowel obstruction: Onset Date: 92-Jeq-7269Ffzhukfwphv abdominal pain (finding): Chronic:Fluid overload pulmonary edema:Clostridium difficile infection:Diarrhea: Other Dx/Proc:Gastrointestinal bleeding: Description: Gastrointestinal bleeding1 Colitis, 2 Abdomen Pain 3 Cholelithiasis: Onset Date: 91-Yqz-5757Odtcm failure: Description: Heart failurePNEUMONIA:Diabetes mellitus: Description: Diabetes [...] bowel obstruction (disorder):Acute bowel obstruction: Onset Date: 33-Jvt-1649Apclk bowel obstruction: Objective Information: T HRJSFgL1Hehgh17.14931613/689 3%Date/Time07/10 14: 14: 14: 14: 14:18Range(36C - [...] Intake and Output -----Mn/Dy/Year TimeIntakeOutputNetJun 2017 2:00 [id number] 2017 6:00 ff727Xhu 2017 10:00 pm000 Height/Weight:Height in feet: 5 [...] 14:51 Nutrition Labs:Special Chemistry: 03-Jul-2017 10:15, Hemoglobin O9SYlujpnahae A1C, Level5.3 Diagnosis of Diabetes-Adults Non-Diabetic: < or = 5.6% Increased risk for developing diabetes: 5.7-6.4% Diagnostic of diabetes: > or = 6.5%. Monitoring of Diabetes Age (y) Therapeutic Goal (%) Adults: >18 <7.0 Pediatrics: 13-18 <7.5 7-12 <8.0 0- 6 7.5-8.5 [place] [employer]. Diabetes Care 33(S1), Feb 2009.Estimated Average Hkyqryt250 Current Active Medications/PN:buPROPion Extended Release (24 hour), Tablet, Extended Release (WELLBUTRINXL)DOSE = 150 mg Oral Every 24 Hours, 98-Ybc-7818Nnoynnynvnu, Tablet (PLAVIX)DOSE = 75 mg Oral Daily, 44-Gzt-8572Qrqzieaufr SubCutaneous, (LOVENOX)DOSE = 40 mg SubCutaneous Every 24 HoursNotes from Pharmacy: NOTE DOSAGE STRENGTH, 83-Syp-9131Bmprpoqbfs, Tablet (LASIX)DOSE = 40 mg Oral Daily, 84-Xom-4847Wqesmzdgzy, Capsule (NEURONTIN)DOSE = 800 mg Oral 3 Times a Day, 24-Nbt-8141Cxigoakaqq Mononitrate Extended Release, Tablet, Extended Release (IMDUR)DOSE = 60 mg Oral Daily, 27-Pax-6328Yqnpkpgjsk, Tablet (PRINIVIL, ZESTRIL)DOSE = 10 mg Oral Daily, 46-Xbs-1411Omylbijqir Tartrate, Tablet (LOPRESSOR)DOSE = 50 mg Oral Every 12 Hours, 80-Fcm-1106Ipizyamddci Injectable, (ZOFRAN)DOSE = 4 mg IntraVenous Push Every 6 Hours, PRN Nausea & Vomiting, 33-Pgd-6138Rkebzwyafm, Tablet (DITROPAN)DOSE = 5 mg Oral 3 Times a Day, 53-Vld-8048wlnHPNPJW 5 mg - Acetaminophen 325 mg, Tablet (PERCOCET)DOSE = 1 tablet(s) Oral Every 4 Hours, PRN Pain - Mild (1-3), 04-Sry-2692Ormbphahdyhm, Enteric Coated Tablet (PROTONIX)DOSE = 40 mg Oral Daily, 72-Ghx-5947Guxglpspb Chloride Powder Packet, (K-SHAUN)DOSE = 40 mEq Oral Daily, 73-Ukp-1102Gaqcvanmcrd, Tablet (ZOCOR)DOSE = 40 mg Oral At Bedtime, 74-Uqs-0191Xglqdi Chloride 0.9% Injectable Flush, via Triple Lumen - Arrow BrandVolume = 10 mL IntraVenous Flush Every 8 Hours and as Needed, 91-Sot-3214dttPFAqp, Tablet (ULTRAM)DOSE = 50 mg Oral Every 6 Hours, PRN Pain - Mod (4-6), 08-Mlk-0435Fwelzzmpwe, CapsuleDOSE = 125 mg Oral Every 6 Hours, 09-Jul-2017 Nutrition Orders:Oral Nutritional Supplements, RoutineResource BreezeFlavor Preference: [place]; [place], 2 Times a DaySpecial Instructions: Please send Boost Sale orange at breakfast and BoostBrejose angel [place] at dinner, 93-Tar-5611Xsy-Stat 101, Oral - Administer as a scheduled medication. Pour packet into a30 ML medicine cup. Tube Feeding - Standard flush before and afteradministering 3 Times a Day Arwnzsu7YS (Oral), 26-Yts-1652Czkc May Participate in Room Service Jacky Braswell, YesOrder entered from Admission Screens., 41-Dch-2096Lfpe, High Calorie; High Protein, 10-Jul-2017 Food/Nutrition Related [...] 17:38 by Silvia Tyler ([place], [place]) Normal [facility] Admission Risk Screen - Adul [...] Learning Preferencesverbal instruction? Cultural Considerationsnone? Developmental Considerationsnone? Uatsdin Considerationsnone Learning Assessment (Other Learner):? Other learner [...] Spiritual Screen:? Are there any cultural, spiritual, samaritan practices/values/needs that areimportant for us to know?no CAGE:Is this an injured patient at a Trauma Center ([facility] [place] [facility] [place]): no Vaccinations:Vaccination - Influenza Vaccination Screen:? Is [...] 09-Jul-2017 10:07 by Antoinette Hernandez (CINTHYA) Normal [facility] BASIC METABOLIC PANELon 05-3 Anion gap 3 molar conc 9 mmol/L Low 10 - 20 [facility] Comment on above: Performed By: #### L IPAS ####[facility] [place] [address] Calcium mass conc 7.5 mg/dL Low 8.6 - 10.3 [facility] Comment on above: Performed By: #### L IPAS ####[facility] [place] [address] Chloride molar conc 101 mmol/L Normal 98 - 107 [facility] Comment on above: Performed By: #### L IPAS ####[facility] [place] [address] Creatinine mass conc 0.66 mg/dL Normal 0.50 - 1.05 [facility] Comment on above: Performed By: #### L IPAS ####[address] [place] [address] GFR- AM. >60 Normal >60 [facility] Comment on above: Result Comment: CALC ULATIONS OF ESTIMATED GFR ARE PERFORMED USING THE MDRD STUDY EQUATION FOR THE IDMS-TRACEABLE CREATININE METHODS. CLIN CHEM 2007;53:766-72 Performed By: #### L IPAS ####[address] [address] GFR-NON AM. >60 Normal >60 [facility] Comment on above: Performed By: #### L IPAS ####[address] [address] Glucose mass conc 111 mg/dL High 74 - 99 [facility] Comment on above: Performed By: #### L IPAS ####[address] [address] HCO3 molar conc (Bld) 31 mmol/L Normal 21 - 32 [facility] Comment on above: Performed By: #### L IPAS ####[address] [address] Potassium molar conc 3.3 mmol/L Low 3.5 - 5.3 [facility] Comment on above: Performed By: #### L IPAS ####[address] [address] Sodium molar conc 138 mmol/L Normal 136 - 145 [facility] Comment on above: Performed By: #### L IPAS ####[address] [address] Urea nitrogen mass conc 11 mg/dL Normal 6 - 23 [facility] Comment on above: Performed By: #### L IPAS ####[address] [address] CBCon 07-09-2017 Erythrocyte distribution width Auto Ratio (RBC) 13.7 % Normal 11.5 - 14.5 [facility] Comment on above: Performed By: #### L IPAS ####[address] [address] Hematocrit Auto Volume Fraction (Bld) 27.9 % Low 36.0 - 46.0 [facility] Comment on above: Performed By: #### L IPAS ####[address] [address] Hemoglobin mass conc (Bld) 9.4 g/dL Low 12.0 - 16.0 [facility] Comment on above: Performed By: #### L IPAS ####[address] [address] MCHC Auto mass conc (RBC) 33.7 g/dL Normal 32.0 - 36.0 [facility] Comment on above: Performed By: #### L IPAS ####[address] [address] MCV Auto Entitic volume (RBC) 100 fL Normal 80 - 100 [facility] Comment on above: Performed By: #### L IPAS ####[address] [address] Nucleated RBC/100 WBC Ratio (Bld) 0.2 /100 WBC Abnormal 0.0-0.0 [facility] Comment on above: Performed By: #### L IPAS ####[address] [address] Platelets Auto #/vol (Bld) 274 10*3/uL Normal 150 - 450 [facility] Comment on above: Performed By: #### L IPAS ####[address] [address] RBC Auto #/vol (Bld) 2.79 x10E12/L Low 4.00 - 5.20 [facility] Comment on above: Performed By: #### L IPAS ####[address] [address] WBC Auto #/vol (Bld) 12.9 10*3/uL High 4.4 - 11.3 [facility] Comment on above: Performed By: #### L IPAS ####[address] [address] CLOST.DIFF.TOXIN,PCRon 07-09 CLOST.DIFF.TOXIN,PCR DETECTED Abnormal Not Detected [facility] Comment on above: Order [...] 07/09/2017 14:51 Performed By: #### L IPAS ####[place] [address] History and Physicalon 07-09 History and Physical History of Present Illness:HPI:Patient is an 82 y/o female with PMHx of SBO and (s/p ELAP in February 2012),known large hiatal hernia, small vessel colon disease, CAD s/p CABG, diastolicCHF, HTN, HLD, depression, and chronic pain, who presented to the [facility] ED on 07/02/17 with sudden [...] received Lovenox for DVT prophylaxis. She received uozomuenlr54mi for acute exacerbation of diastolic CHF. Potassium [...] laboratory results: Complete Blood Count Trending View Rvxlaz71-Tru-7785 04:03:00 08-Jul-2017 07:37:00 07-Jul-2017 04:53:00 06-Jul-2017 08:19:00White Blood Cell Count12.9 H 8.8 5.2 3.5 LNucleated Erythrocyte Count0.2 A 0.2 A Red Blood Cell Count2.79 L 2.65 L 2.49 L 2.60 LHGB9.4 L 9.0 L 8.6 L 9.0 LHCT27.9 L 26.5 L 25.0 L 26.2 SDZE788 100 100 101 HMCHC33.7 34.0 34.4 34.2IYL416 245 197 190RDW-CV13.7 13.6 13.2 13.7 Basic Metabolic Panel Trending View Kzzeaq97-Apm-9441 04:03:00 08-Jul-2017 07:37:00 07-Jul-2017 04:53:00Glucose, Ikdqf234 H 108 H 105 QRT308 137 140K3.3 L 3.2 L 2.6 ZIAH606 98 98Bicarbonate, Serum31 32 34 HAnion Gap, Serum9 L 10 81GWI49 11 01YIYAC0.66 0.66 0.62GFR-Non >60 >60 >60GFR->60 >60 >60Calcium, Serum7.5 L 7.6 L 7.6 LLab Comment: Samples collected at 0554 07/08/17. Potassium Called- RB Christen Griffin on Med Surg, 07/07/2017 05:38 Magnesium, Serum Trending View Ydanct06-Jby-3778 04:03:00 08-Jul-2017 05:30:00 07-Jul-2017 04:53:00Magnesium, Serum1.51 L 1.96 1.48 L Blood Gas, Arterial Trending View Cpfqak80-Gqd-3323 05:10:00 06-Jul-2017 15:15:00pH, Arterial7.54 H 7.51 HpCO2, Zgjfbgdd73 40pO2, Wdtvnljg61 L 51 LPatient-Ceivoflktcg77.0 37.5UWQ713 28SO2, Wopmbnne57 93 LBase Excess-Blood11.5 H 8.2 HBicarbonate, Calculated, Cfvpqpvx53.1 H 31.9 HSite of Arterial PunctureLEFT BRACHIAL LEFT BRACHIALAllen's Test (Collateral Circulation)NON-APPLICABLE NON-APPLICABLE Urinalysis 06-Jul-2017 12:08:00 ResultValueColor, Urine YELLOW Reference Range: STRAW,YELLOWAppearance, Urine CLEARSpecific [place], Urine 1.008pH, Urine 5.0Protein, Urine NEGATIVEGlucose, Urine [...] 22.2 cm2LA Area A2C: 19.3 cm2LA [place] A4C: 5.9 cmLA [place] A2C: 5.4 cmLA Volume Index: 40.5 ml/m2RA VOLUME BY A/L METHOD: Normal Ranges:RA Vol A4C: 17.8 ml (8.3-19.5ml)RA Vol Index A4C: 11.5 ml/m2RA Area A4C: 9.6 cm2RA [place] A4C: 4.4 cmM-MODE MEASUREMENTS: Normal Ranges:Ao Root: [...] and chronic pain, who presented to the [facility] ED on 07/02/17 with sudden [...] electrolyte replacement. # Physical Deconditioning- Admitted for [facility] care, rehabilitation- PT/OT # S/p R Colectomy- Pain management: Continue home percocet q4h PRN mild pain, ordered Ssdwndjay4j PRN for moderate pain. D/C'd morphine and [...] Prophylaxis: Lovenox 40mg subcutaneous q24h [facility] Signatures/Attestation/Certi fication:Attending Provider ? Inpatient Certification StatementI certify that SNFservices are required to be given on an inpatient basis because of the abovenamed patient's need for [facility] care on a continuing basis for thecondition(s) [...] Updated: 09-Jul-2017 14:37 by Manny Arana) Normal [facility] MAGNESIUMon 07-09-2017 Magnesium mass conc 1.51 mg/dL Low 1.60 - 2.40 [facility] Comment on above: Performed By: #### L IPAS ####[id number] [place] [address] Patient Profile - Adult v2on 07-09-2017 Protein mass conc Profile:Initial Info :How to be AddressedNaomi(1)Spoken Language PreferredEnglish (1)Are you currently using the Personal Electronic Health Record or [employer](1)Stated Reason for Admissioninto muscle sickArrived [facility] carePatient BelongingsnoneMedications Brought to [facility] Health:Weight in kg47.7 kilogram(s)Weight in mnw192.1 pound(s)Height in feet5 feetHeight in inches5 inch(es)Height in cm165.1 centimeter(s)BMI (kg/m2)17.499 square meterWeight Methodactual (measured)Scale TypebedHeight Methodstated [facility] Based Care:How would you like [...] - Adult v2 07/02/2017 8:49 PM Normal [facility] BASIC METABOLIC PANELon 05-3 Anion gap 3 molar conc 10 mmol/L Normal 10 - 20 [facility] Comment on above: Order Comment: Sampl es collected at [facility] 07/08/17. Performed By: #### U AMIC ####[address] [place] [address] Calcium mass conc 7.6 mg/dL Low 8.6 - 10.3 [facility] Comment on above: Order Comment: Sampl es collected at [facility] 07/08/17. Performed By: #### U AMIC ####[address] [address] Chloride molar conc 98 mmol/L Normal 98 - 107 [facility] Comment on above: Order Comment: Sampl es collected at [facility] 07/08/17. Performed By: #### U AMIC ####[address] [address] Creatinine mass conc 0.66 mg/dL Normal 0.50 - 1.05 [facility] Comment on above: Order Comment: Sampl es collected at [facility] 07/08/17. Performed By: #### U AMIC ####[address] [address] GFR- AM. >60 Normal >60 [facility] Comment on above: Order Comment: Sampl es collected at [facility] 07/08/17. Result Comment: CALC ULATIONS OF ESTIMATED GFR ARE PERFORMED USING THE MDRD STUDY EQUATION FOR THE IDMS-TRACEABLE CREATININE METHODS. CLIN CHEM 2007;53:766-72 Performed By: #### U AMIC ####[address] [address] GFR-NON AM. >60 Normal >60 [facility] Comment on above: Order Comment: Sampl es collected at [facility] 07/08/17. Performed By: #### U AMIC ####[address] [address] Glucose mass conc 108 mg/dL High 74 - 99 [facility] Comment on above: Order Comment: Sampl es collected at [facility] 07/08/17. Performed By: #### U AMIC ####[address] [address] HCO3 molar conc (Bld) 32 mmol/L Normal 21 - 32 [facility] Comment on above: Order Comment: Sampl es collected at [facility] 07/08/17. Performed By: #### U AMIC ####[address] [address] Potassium molar conc 3.2 mmol/L Low 3.5 - 5.3 [facility] Comment on above: Order Comment: Sampl es collected at [facility] 07/08/17. Performed By: #### U AMIC ####[address] [address] Sodium molar conc 137 mmol/L Normal 136 - 145 [facility] Comment on above: Order Comment: Sampl es collected at [facility] 07/08/17. Performed By: #### U AMIC ####[address] [address] Urea nitrogen mass conc 11 mg/dL Normal 6 - 23 [facility] Comment on above: Order Comment: Sampl es collected at [facility] 07/08/17. Performed By: #### U AMIC ####[address] [address] CBCon 07-08-2017 Erythrocyte distribution width Auto Ratio (RBC) 13.6 % Normal 11.5 - 14.5 [facility] Comment on above: Performed By: #### U AMIC ####[address] [address] Hematocrit Auto Volume Fraction (Bld) 26.5 % Low 36.0 - 46.0 [facility] Comment on above: Performed By: #### U AMIC ####[address] [address] Hemoglobin mass conc (Bld) 9.0 g/dL Low 12.0 - 16.0 [facility] Comment on above: Performed By: #### U AMIC ####[address] [place] [address] MCHC Auto mass conc (RBC) 34.0 g/dL Normal 32.0 - 36.0 [facility] Comment on above: Performed By: #### U AMIC ####[address] [place] [address] MCV Auto Entitic volume (RBC) 100 fL Normal 80 - 100 [facility] Comment on above: Performed By: #### U AMIC ####[address] [place] [address] Nucleated RBC/100 WBC Ratio (Bld) 0.2 /100 WBC Abnormal 0.0-0.0 [facility] Comment on above: Performed By: #### U AMIC ####[address] [place] [address] Platelets Auto #/vol (Bld) 245 10*3/uL Normal 150 - 450 [facility] Comment on above: Performed By: #### U AMIC ####[address] [address] RBC Auto #/vol (Bld) 2.65 x10E12/L Low 4.00 - 5.20 [facility] Comment on above: Performed By: #### U AMIC ####[address] [address] WBC Auto #/vol (Bld) 8.8 10*3/uL Normal 4.4 - 11.3 [facility] Comment on above: Performed By: #### U AMIC ####[address] [address] Daily Progress Note-Melly merino 07-08-2017 Protein mass [...] brown loose stoolovernight. Objective Data: Objective Information:T YVJNHnC5Rkepv90.06912230/729 6%Date/Time07/08 6: 6: 6: 6: 6:40Range(36.4C - [...] reviewed these laboratory results: Basic Metabolic Panel [Bvyge21-Dyu-0415 07:37:00]. Assessment and Plan: Admitting Dx:Cecal volvulus: [...] Updated: 08-Jul-2017 12:42 by Manny Arana) Normal [facility] HEMOGLOBIN A1Con 07-08-2017 Glucose mass conc 105 mg/dL Normal [facility] Comment on above: Performed By: #### L IPAS ####[address] [place] [address] Hemoglobin A1c/Hemoglobin.total mass fraction (Bld) 5.3 % Normal [facility] Comment on above: Result Comment: Diag nosis of Diabetes-Adults Non-Diabetic: < or = 5.6% Increased risk for developing diabetes: 5.7-6.4% Diagnostic of diabetes: > or = 6.5%. Monitoring of Diabetes Age (y) Therapeutic Goal (%) Adults: >18 <7.0 Pediatrics: 13-18 <7.5 7-12 <8.0 0- 6 7.5-8.5 [place] [employer]. Diabetes Care 33(S1), Feb 2009. Performed By: #### L IPAS ####[facility] [place] [address] MAGNESIUMon 07-08-2017 Magnesium mass conc 1.96 mg/dL Normal 1.60 - 2.40 [facility] Comment on above: Performed By: #### U AMIC ####[address] [place] [address] ARTERIAL BLOOD GASon 018 JACKIE'S TEST[COLLATERAL CIRCULATION] NON-APPLICABLE Normal [facility] Comment on above: Performed By: #### U AMIC ####[address] [place] [address] SITE OF ARTERIAL PUNCTURE LEFT BRACHIAL Normal [facility] Comment on above: Performed By: #### U AMIC ####[address] [place] [address] BASE EXCESS-BLOOD 11.5 mmol/L High -2.0 - 3.0 [facility] Comment on above: Performed By: #### U AMIC ####[address] [place] [address] FIO2 36 % Normal [facility] Comment on above: Performed By: #### U AMIC ####[address] [address] Oxygen ppres (BldA) 70 mm[Hg] Low 85 - 95 [facility] Comment on above: Performed By: #### U AMIC ####[address] [address] PCO2 41 mmHg Normal 38 - 42 [facility] Comment on above: Performed By: #### U AMIC ####[address] [place] [address] RBC Auto #/vol (Bld) 35.1 mmol/L High 22.0 - 26.0 [facility] Comment on above: Performed By: #### U AMIC ####[address] [place] [address] SO2 97 % Normal 94 - 100 [facility] Comment on above: Performed By: #### U AMIC ####[address] [place] [address] pH (Bld) 7.54 [pH] High 7.38 - 7.42 [facility] Comment on above: Performed By: #### U AMIC ####[address] [address] BASIC METABOLIC PANELon 05-2 Anion gap 3 molar conc 11 mmol/L Normal 10 - 20 [facility] Comment on above: Order Comment: Josselyn dowd Called- RB toNimannifer Elias on Med Surg, 07/07/2017 05:38 Performed By: #### U A ####[address] [address] Calcium mass conc 7.6 mg/dL Low 8.6 - 10.3 [facility] Comment on above: Order Comment: Josselyn dowd Called- RB toJennifer Elias on Med Surg, 07/07/2017 05:38 Performed By: #### U A ####[address] [address] Chloride molar conc 98 mmol/L Normal 98 - 107 [facility] Comment on above: Order Comment: Josselyn dowd Called- RB toNimannifer Elias on Med Surg, 07/07/2017 05:38 Performed By: #### U A ####[place] [address] Creatinine mass conc 0.62 mg/dL Normal 0.50 - 1.05 [facility] Comment on above: Order Comment: Josselyn dowd Called- RB toNimannifer Elias on Med Surg, 07/07/2017 05:38 Performed By: #### U A ####[address] [address] GFR- AM. >60 Normal >60 [facility] Comment on above: Order Comment: Josselyn dowd Called- RB toNimannifer Elias on Med Surg, 07/07/2017 05:38 Result Comment: CALC ULATIONS OF ESTIMATED GFR ARE PERFORMED USING THE MDRD STUDY EQUATION FOR THE IDMS-TRACEABLE CREATININE METHODS. CLIN CHEM 2007;53:766-72 Performed By: #### U A ####[address] [address] GFR-NON AM. >60 Normal >60 [facility] Comment on above: Order Comment: Josselyn dowd Called- RB toNimannifer Elias on Med Surg, 07/07/2017 05:38 Performed By: #### U A ####[address] [place] [address] Glucose mass conc 105 mg/dL High 74 - 99 [facility] Comment on above: Order Comment: Josselyn dowd Called- RB toJennifer Elias on Med Surg, 07/07/2017 05:38 Performed By: #### U A ####[address] [address] HCO3 molar conc (Bld) 34 mmol/L High 21 - 32 [facility] Comment on above: Order Comment: Josselyn correiaum Called- RB toJennifer Elias on Med Surg, 07/07/2017 05:38 Performed By: #### U A ####[address] [address] Potassium molar conc 2.6 mmol/L Critically low 3.5 - 5.3 [facility] Comment on above: Order Comment: Josselyn correiaum Called- RB toJennifer Elias on Med Surg, 07/07/2017 05:38 Result Comment: Hafsa ssium Called- RB toJennifer Elias on Med Surg, 07/07/2017 05:38 Performed By: #### U A ####[address] [address] Sodium molar conc 140 mmol/L Normal 136 - 145 [facility] Comment on above: Order Comment: Josselyn correiaum Called- RB toJennifer Elias on Med Surg, 07/07/2017 05:38 Performed By: #### U A ####[address] [address] Urea nitrogen mass conc 11 mg/dL Normal 6 - 23 [facility] Comment on above: Order Comment: Josselyn correiaum Called- RB toJennifer Elias on Med Surg, 07/07/2017 05:38 Performed By: #### U A ####[address] [address] CBCon 07-07-2017 Erythrocyte distribution width Auto Ratio (RBC) 13.2 % Normal 11.5 - 14.5 [facility] Comment on above: Performed By: #### U A ####[address] [address] Hematocrit Auto Volume Fraction (Bld) 25.0 % Low 36.0 - 46.0 [facility] Comment on above: Performed By: #### U A ####[address] [address] Hemoglobin mass conc (Bld) 8.6 g/dL Low 12.0 - 16.0 [facility] Comment on above: Performed By: #### U A ####[address] [address] MCHC Auto mass conc (RBC) 34.4 g/dL Normal 32.0 - 36.0 [facility] Comment on above: Performed By: #### U A ####[address] [address] MCV Auto Entitic volume (RBC) 100 fL Normal 80 - 100 [facility] Comment on above: Performed By: #### U A ####[address] [address] Platelets Auto #/vol (Bld) 197 10*3/uL Normal 150 - 450 [facility] Comment on above: Performed By: #### U A ####[address] [address] RBC Auto #/vol (Bld) 2.49 x10E12/L Low 4.00 - 5.20 [facility] Comment on above: Performed By: #### U A ####[address] [address] WBC Auto #/vol (Bld) 5.2 10*3/uL Normal 4.4 - 11.3 [facility] Comment on above: Performed By: #### U A ####[address] [address] CHEST 1 VIEWon 07-07-2017 CHEST 1 VIEW [...] laterally andcephalad.Electronically signed by: GAEL CRUZ MD [facility] Daily Progress Note-Cardiolo handyon 07-07-2017 Protein mass [...] night.Objective Data:Objective Information: T P R BP ZpB2Stqgi 36.4 78 18 155/73 97%Date/Time 07/07 14:10 [...] right colectomy-pain meds-encourage IS-Lovenox for DVT prophylaxis2. Xsvlocmfijjo-ejptit-wols metoprolol, lisinopril, and Imdur-cont to monitor closely3. [...] Updated: 07-Jul-2017 21:46 by Ventura Thacker) Normal [facility] Daily Progress Note-Samarao n 07-07-2017 [...] pain.Objective Data:Objective Information: T P R BP PwW5Chcrf 36.6 75 20 152/84 98%Date/Time 07/07 6:48 [...] Updated: 07-Jul-2017 13:55 by Manny Arana) Normal [facility] Discharge Coqxgzn8kp 05-29-2 018 Protein mass conc Discharge Orders:Ant icipated Discharge Date:? 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 Hypokalemia: Catalog Name: [facility] Providers:Provider RoleProvider Name? AttendingManny Arana? ConsultingVentura Thacker? Manny Mcbride P? [facility] Course (Home Care/Gold Form):Hospital Course:? Hospital Course: [...] 1.96 (07/08), 1.51 (07/09) 07/09/17: Discharge to [facility] care for rehabilitation 2/2 todeconditioning as well [...] (Resident) at 09-Jul-2017 07:42:04 Gold Form - Rn Admit Summary:Referral Information:? Referral [facility]? Referring Facility [facility]? Contact Sebastian Chaudhari RN (Patroller)? Contact Phone [phone] Medicare/Medicaid:? Medicare [id number] Social Security:? Social Security [id number] Mental & Functional Status:? Mental/Behavioral Statusalert? Functional Status Prior To Admissionindependent? Capacity For Independent Living/Custodial Planreturn home? Mental/Functional Commentalert and oriented x3 Electronic Signatures:Manny Arana) (Signed 08-Jul-2017 12:35)Authored: Gold Form Orders, Provider FINAL REVIEW of OrdersCo-Signer: Gold Form OrdersSom Chaudhari (CLIN COOR) (Signed 07-Jul-2017 15:04)Authored: Gold Form - Rn Admit SummaryMike Olson ( (Resident)) (Signed 09-Jul-2017 07:42)Authored: Discharge Orders, Hospital Course (Home Care/Gold Form), ProviderFINAL REVIEW of OrdersWanda Muller (CLIN COOR) (Signed 08-Jul-2017 16:40)Authored: Gold Form Orders, Gold Form - Rn Admit Summary Last Updated: 09-Jul-2017 07:42 by Mike Olson ( (Resident)) Normal [facility] EMR ADDONon 07-07-2017 ADDON CONFIRMATION REQUEST REC'D Normal [facility] Comment on above: Performed By: #### U AMIC ####[facility] [place] [address] MAGNESIUMon 07-07-2017 Magnesium mass conc 1.48 mg/dL Low 1.60 - 2.40 [facility] Comment on above: Performed By: #### U AMIC ####[address] [address] ARTERIAL BLOOD GASon 018 JACKIE'S TEST[COLLATERAL CIRCULATION] NON-APPLICABLE Normal [facility] Comment on above: Performed By: #### U A ####[address] [address] SITE OF ARTERIAL PUNCTURE LEFT BRACHIAL Normal [facility] Comment on above: Performed By: #### U A ####[address] [address] BASE EXCESS-BLOOD 8.2 mmol/L High -2.0 - 3.0 [facility] Comment on above: Performed By: #### U A ####[address] [address] FIO2 28 % Normal [facility] Comment on above: Performed By: #### U A ####[address] [address] Oxygen ppres (BldA) 51 mm[Hg] Low 85 - 95 [facility] Comment on above: Performed By: #### U A ####[address] [address] PCO2 40 mmHg Normal 38 - 42 [facility] Comment on above: Performed By: #### U A ####[address] [address] RBC Auto #/vol (Bld) 31.9 mmol/L High 22.0 - 26.0 [facility] Comment on above: Performed By: #### U A ####[address] [address] SO2 93 % Low 94 - 100 [facility] Comment on above: Performed By: #### U A ####[address] [address] pH (Bld) 7.51 [pH] High 7.38 - 7.42 [facility] Comment on above: Performed By: #### U A ####[address] [address] BNPon 07-06-2017 Natriuretic peptide B mass conc (Bld) 760 pg/mL High 0 - 99 [facility] Comment on above: Result Comment: . <1 00 pg/mL - Heart failure ufcsplnw695-476 pg/mL - Intermediate probability of acute heart. failure exacerbation. Correlate with clinical. context and patient history. >=300 pg/mL - Heart Failure likely. Correlate with clinical. context and patient history.BNP testing is performed using different testingmethodology at [facility] than at [facility]. Direct result comparisons shouldonly be made within the same method. Performed By: #### U A ####[address] [address] CBCon 07-06-2017 Erythrocyte distribution width Auto Ratio (RBC) 13.7 % Normal 11.5 - 14.5 [facility] Comment on above: Performed By: #### C BCDF ####[address] [address] Hematocrit Auto Volume Fraction (Bld) 26.2 % Low 36.0 - 46.0 [facility] Comment on above: Performed By: #### C BCDF ####[address] [address] Hemoglobin mass conc (Bld) 9.0 g/dL Low 12.0 - 16.0 [facility] Comment on above: Performed By: #### C BCDF ####[address] [address] MCHC Auto mass conc (RBC) 34.4 g/dL Normal 32.0 - 36.0 [facility] Comment on above: Performed By: #### C BCDF ####[address] [address] MCV Auto Entitic volume (RBC) 101 fL High 80 - 100 [facility] Comment on above: Performed By: #### C BCDF ####[address] [address] Platelets Auto #/vol (Bld) 190 10*3/uL Normal 150 - 450 [facility] Comment on above: Performed By: #### C BCDF ####[address] [address] RBC Auto #/vol (Bld) 2.60 x10E12/L Low 4.00 - 5.20 [facility] Comment on above: Performed By: #### C BCDF ####[facility] [place] [address] WBC Auto #/vol (Bld) 3.5 10*3/uL Low 4.4 - 11.3 [facility] Comment on above: Performed By: #### C BCDF ####[facility] [place] [address] CHEST 1 VIEWon 07-06-2017 CHEST 1 VIEW [...] isrecommended.Electronically signed by: SUHAIL ALMANZA MD Normal [facility] CT HEAD WO CONTRASTon 2017 [...] skull fracture.Electronically signed by: SUHAIL ALMANZA MD [facility] Daily Progress Note-Cardiolo handyon 07-06-2017 Protein mass [...] ativanObjective Data:Objective Information: T P R BP HkR9Sayje 36.8 101 18 173/87 94%Date/Time 07/06 7:15 [...] contusions or wounds, noclubbingNeurological: alert and oriented z4Powprvgsqqtem: Appropriate mood and behaviorSkin: Warm and dryMedication:Medications: [...] right colectomy-pain meds-encourage IS-Lovenox for DVT prophylaxis2. Llktkxzbfymz-kzqxlq-aycn metoprolol, lisinopril, and Imdur-cont to monitor closely3. [...] Updated: 06-Jul-2017 09:54 by Ventura Thacker) Normal [facility] Daily Progress Note-Surgeryo n 07-06-2017 [...] NAUSEA.Objective Data:Objective Information: T P R BP VwL1Jilzo 36.4 88 16 147/71 97%Date/Time 07/05 20:00 [...] reviewed these laboratory results: Complete Blood Count [[id number] 05:18:00], Basic Metabolic Panel [Drawn 05-Jul-2017 05:18:00].Radiology [...] ationLast Updated: 06-Jul-2017 07:42 by Manny Arana) [facility] Nutrition Therapy-Follow Upo n 07-06-2017 Nutrition Therapy-Follow Up Assessment Subjective/Objective:Note Type: Follow UpNote Authored by: Registered Dietitian NutritionistPager Number: [phone] Note:The patient is a 82 year old [...] obstruction (disorder): Acute bowel obstruction: Onset Date: 34-Amc-4834Phiwfgycf Information:---- Intake and Output -----Mn/Dy/Year Time Intake Output NetMay 2017 2:00 pm 725 250 475May 2017 6:00 am 0 2 -2May 2017 10:00 pm 253 0 253The Intake and Output Totals for the last 24 hours are: Intake Output Net [phone] -459 T P R BP OaM1Ucacs 37 83 16 154/75 94%Date/Time 07/06 14:17 [...] Urine YELLOW Reference Range: STRAW,YELLOWAppearance, Urine CLEARSpecific [place], Urine 1.008pH, Urine 5.0Protein, Urine NEGATIVEGlucose, Urine [...] Clinician Notes: TO START AT 1700 07/06/17, [id number] Orders: Clear Liquid Diet, Routine, 05-Jul-2017 Oral Nutritional Supplements, Routine Resource Breeze Flavor Preference: [place]; [place], 2 Times a Day Special Instructions: Please send Boost Breeze orange at breakfast and BoostBreeze [place] at dinner, 06-Jul-2017 Pro-Stat 101, Oral - Administer as a scheduled medication. Pour packet into a30 ML medicine cup. Tube Feeding - Standard flush before and afteradministering 3 Times a Day Routine 1 PO (Oral), [id number]-[id number]/Nutrition Related History:Change in Oral Intake/Appetite: increase -Diet [...] 17:56 by Silvia Tyler (RDN, LD) Normal [facility] TROPONIN Ion 07-06-2017 Troponin I.cardiac mass conc 0.02 ng/mL Normal 0.00 - 0.03 [facility] Comment on above: Result [...] testing is performed using differenttesting methodology at [facility] than at [facility]. Direct result comparisons should onlybe made within the same method. Performed By: #### C BCDF ####[address] [address] UA MICROSCOPICon 07-06-2017 BACTERIA 1+ /HPF Abnormal [facility] Comment on above: Performed By: #### U A ####[address] [address] HYALINE CAST 1+ /LPF Abnormal [facility] Comment on above: Performed By: #### U A ####[address] [address] MUCUS 1+ /LPF Normal [facility] Comment on above: Performed By: #### U A ####[address] [address] RBC Test strip #/vol (U) 0-5 Normal 0-5 [facility] Comment on above: Performed By: #### U A ####[address] [address] SQUAMOUS EPITH. CELLS FEW Normal [facility] Comment on above: Performed By: #### U A ####[address] [address] TRANSITIONAL EPITH.CELLS FEW Normal [facility] Comment on above: Performed By: #### U A ####[address] [address] WBC 0-5 Normal 0-5 [facility] Comment on above: Performed By: #### U A ####[address] [place] [address] URINALYSISon 07-06-2017 APPEARANCE CLEAR Normal CLEAR [facility] Comment on above: Performed By: #### U A ####[address] [place] [address] BILIRUBIN Negative Normal NEGATIVE [facility] Comment on above: Performed By: #### U A ####[address] [address] BLOOD MODERATE(2+) Abnormal NEGATIVE [facility] Comment on above: Performed By: #### U A ####[address] [address] COLOR YELLOW Normal STRAW,YELL OW [facility] Comment on above: Performed By: #### U A ####[address] [address] GLUCOSE Negative Normal NEGATIVE [facility] Comment on above: Performed By: #### U A ####[address] [address] KETONES 5(Trace) Abnormal NEGATIVE [facility] Comment on above: Performed By: #### U A ####[address] [address] LEUKOCYTE ESTERASE TRACE Abnormal NEGATIVE [facility] Comment on above: Performed By: #### U A ####[address] [address] NITRITE Negative Normal NEGATIVE [facility] Comment on above: Performed By: #### U A ####[address] [address] pH 5.0 Normal 5.0 - 8.0 [facility] Comment on above: Performed By: #### U A ####[address] [address] Protein mass conc Negative Normal NEGATIVE [facility] Comment on above: Performed By: #### U A ####[address] [address] SPECIFIC GRAVITY 1.008 Normal 1.005 - 1.035 [facility] Comment on above: Performed By: #### U A ####[address] [address] UROBILINOGEN <2.0 Normal 0.0 - 1.9 [facility] Comment on above: Performed By: #### U A ####[address] [address] BASIC METABOLIC PANELon 05-2 Anion gap 3 molar conc 11 mmol/L Normal 10 - 20 [facility] Comment on above: Performed By: #### C BCDF ####[address] [address] Calcium mass conc 7.7 mg/dL Low 8.6 - 10.3 [facility] Comment on above: Performed By: #### C BCDF ####[address] [address] Chloride molar conc 106 mmol/L Normal 98 - 107 [facility] Comment on above: Performed By: #### C BCDF ####[address] [address] Creatinine mass conc 0.74 mg/dL Normal 0.50 - 1.05 [facility] Comment on above: Performed By: #### C BCDF ####[address] [address] GFR- AM. >60 Normal >60 [facility] Comment on above: Result Comment: CALC ULATIONS OF ESTIMATED GFR ARE PERFORMED USING THE MDRD STUDY EQUATION FOR THE IDMS-TRACEABLE CREATININE METHODS. CLIN CHEM 2007;53:766-72 Performed By: #### C BCDF ####[address] [address] GFR-NON AM. >60 Normal >60 [facility] Comment on above: Performed By: #### C BCDF ####[address] [address] Glucose mass conc 90 mg/dL Normal 74 - 99 [facility] Comment on above: Performed By: #### C BCDF ####[address] [address] HCO3 molar conc (Bld) 26 mmol/L Normal 21 - 32 [facility] Comment on above: Performed By: #### C BCDF ####[address] [place] [address] Potassium molar conc 3.9 mmol/L Normal 3.5 - 5.3 [facility] Comment on above: Performed By: #### C BCDF ####[address] [address] Sodium molar conc 139 mmol/L Normal 136 - 145 [facility] Comment on above: Performed By: #### C BCDF ####[address] [address] Urea nitrogen mass conc 17 mg/dL Normal 6 - 23 [facility] Comment on above: Performed By: #### C BCDF ####[address] [address] CBCon 07-05-2017 Erythrocyte distribution width Auto Ratio (RBC) 14.1 % Normal 11.5 - 14.5 [facility] Comment on above: Performed By: #### C BCDF ####[address] [address] Hematocrit Auto Volume Fraction (Bld) 24.0 % Low 36.0 - 46.0 [facility] Comment on above: Performed By: #### C BCDF ####[address] [address] Hemoglobin mass conc (Bld) 8.0 g/dL Low 12.0 - 16.0 [facility] Comment on above: Performed By: #### C BCDF ####[address] [address] MCHC Auto mass conc (RBC) 33.3 g/dL Normal 32.0 - 36.0 [facility] Comment on above: Performed By: #### C BCDF ####[address] [address] MCV Auto Entitic volume (RBC) 103 fL High 80 - 100 [facility] Comment on above: Performed By: #### C BCDF ####[address] [address] Platelets Auto #/vol (Bld) 149 10*3/uL Low 150 - 450 [facility] Comment on above: Performed By: #### C BCDF ####[facility] [place] [address] RBC Auto #/vol (Bld) 2.33 x10E12/L Low 4.00 - 5.20 [facility] Comment on above: Performed By: #### C BCDF ####[facility] [place] [address] WBC Auto #/vol (Bld) 6.6 10*3/uL Normal 4.4 - 11.3 [facility] Comment on above: Performed By: #### C BCDF ####[address] [place] [address] Daily Progress Note-Cardioemory esteves 07-05-2017 Protein mass [...] night.Objective Data:Objective Information: T P R BP NaL9Mvkgm 36.4 83 16 158/70 96%Date/Time 07/05 8:00 [...] contusions or wounds, noclubbingNeurological: alert and oriented t7Lwsnxczfyrdyn: Appropriate mood and behaviorSkin: Warm and dryMedication:Medications:CA [...] NSTEMI (non-ST elevated myocardial infarction): Entered Date: 44-Cnx-047371:25 UTI (urinary tract infection), bacterial: Entered Date: [...] bowel obstruction: Onset Date: 11-Feb-2012, Entered Date: 16-Jod-944161:56 Generalized abdominal pain (finding): Entered Date: 11-Feb-2012 [...] ST Elevation Myocardial Infarction (NSTEMI): Entered Date: 40-Lpv-841975:29 Coronary angioplasty/stent (PCI): Entered Date: 12-Dec-2009 15:30 Dyspnea: Entered Date: 12-Dec-2009 12:38 Coronary atherosclerosis: Entered Date: 12-Dec-2009 12:38 Left heart catheterization: Entered Date: 12-Dec-2009 12:36 Hypotension: Entered Date: 09-Sep-2009 15:03 Sepsis: Entered Date: 01-Aug-2009 02:21 Venous thromboembolism: Entered Date: 31-Jul-2009 14:57Comorbidities:Comorbidi ty: anemiaAnemia: acute blood loss anemiaAssessment:1. Cecal volvulus s/p right colectomy-pain meds-encourage IS-Lovenox for DVT prophylaxis2. Bfwgbfbiboin-uizrvr-usjf metoprolol, lisinopril, and Imdur-cont to monitor closely3. 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 Still passing some flatus. Remains afebrile.Objective Data:Objective Information: T P R BP BeE9Dcvmx 36.9 83 25 143/64 96%Date/Time 07/05 4:00 [...] CABGx2, anemia, HTN, SBO s/p ex lap [id number] admitted to the ICU for cecal volvulus, SBO, s/p right colectomy POD #2.cecal volvulus (resolved) s/p right colectomy-await bowel function, no laxatives due to ileus-abdominal XR showed possible ileus-Lasix 10mg IV then d/c soto for abdominal distention-Protonix 40mg IV daily-Percocet 5/325mg PO a7c-vkuweteh LR drip to 40ml/hr-encourage sips of water on clear liquid diet-transfer patient to general medical floorSignature/Cosignature/A ttestation:Comments/ Additional FindingsTx to floorElectronic Signatures:Manny Arana) (Signed 05-Jul-2017 10:17) Authored: Signature/Cosignature/[facility] Co-Signer: Service, Subjective Data, Objective Data, Assessment and PlanAltagracia Trammell (GLENDA) (Signed 05-Jul-2017 07:56) Authored: Service, Subjective Data, Objective Data, Assessment and PlanLast Updated: 05-Jul-2017 10:17 by Manny Arana) Normal [facility] ABDOMEN AP VIEWon 07-04-2017 ABDOMEN [...] Electronically signed by: ALTAGRACIA MELO MD Normal [facility] BASIC METABOLIC PANELon 05-2 Anion gap 3 molar conc 11 mmol/L Normal 10 - 20 [facility] Comment on above: Performed By: #### B MP ####[address] [place] [address] Calcium mass conc 8.0 mg/dL Low 8.6 - 10.3 [facility] Comment on above: Performed By: #### B MP ####[address] [place] [address] Chloride molar conc 103 mmol/L Normal 98 - 107 [facility] Comment on above: Performed By: #### B MP ####[address] [place] [address] Creatinine mass conc 1.37 mg/dL High 0.50 - 1.05 [facility] Comment on above: Performed By: #### B MP ####[address] [place] [address] GFR- AM. 45 mL/min/1.73m2 Abnormal >60 [facility] Comment on above: Result Comment: CALC ULATIONS OF ESTIMATED GFR ARE PERFORMED USING THE MDRD STUDY EQUATION FOR THE IDMS-TRACEABLE CREATININE METHODS. CLIN CHEM 2007;53:766-72 Performed By: #### B MP ####[address] [place] [address] GFR-NON AM. 37 mL/min/1.73m2 Abnormal >60 [facility] Comment on above: Performed By: #### B MP ####[facility] [place] [address] Glucose mass conc 111 mg/dL High 74 - 99 [facility] Comment on above: Performed By: #### B MP ####[facility] [place] [address] HCO3 molar conc (Bld) 28 mmol/L Normal 21 - 32 [facility] Comment on above: Performed By: #### B MP ####[address] [place] [address] Potassium molar conc 4.3 mmol/L Normal 3.5 - 5.3 [facility] Comment on above: Performed By: #### B MP ####[address] [place] [address] Sodium molar conc 138 mmol/L Normal 136 - 145 [facility] Comment on above: Performed By: #### B MP ####[address] [place] [address] Urea nitrogen mass conc 34 mg/dL High 6 - 23 [facility] Comment on above: Performed By: #### B MP ####[address] [place] [address] CBCon 07-04-2017 Erythrocyte distribution width Auto Ratio (RBC) 13.8 % Normal 11.5 - 14.5 [facility] Comment on above: Performed By: #### C BC ####[address] [place] [address] Hematocrit Auto Volume Fraction (Bld) 27.1 % Low 36.0 - 46.0 [facility] Comment on above: Performed By: #### C BC ####[address] [place] [address] Hemoglobin mass conc (Bld) 9.3 g/dL Low 12.0 - 16.0 [facility] Comment on above: Performed By: #### C BC ####[address] [place] [address] MCHC Auto mass conc (RBC) 34.3 g/dL Normal 32.0 - 36.0 [facility] Comment on above: Performed By: #### C BC ####[address] [place] [address] MCV Auto Entitic volume (RBC) 101 fL High 80 - 100 [facility] Comment on above: Performed By: #### C BC ####[facility] [place] [address] Platelets Auto #/vol (Bld) 169 10*3/uL Normal 150 - 450 [facility] Comment on above: Performed By: #### C BC ####[address] [place] [address] RBC Auto #/vol (Bld) 2.68 x10E12/L Low 4.00 - 5.20 [facility] Comment on above: Performed By: #### C BC ####[address] [place] [address] WBC Auto #/vol (Bld) 6.3 10*3/uL Normal 4.4 - 11.3 [facility] Comment on above: Performed By: #### C BC ####[address] [place] [address] Daily Progress Note-Cardiolo linn 07-04-2017 Protein mass [...] last 24 hours are: Intake Output Net 5909 750 1929 T P R BP DgE8Ezdeb 36.2 82 22 131/63 94%Date/Time 07/04 12:07/04 [...] contusions or wounds, noclubbingNeurological: alert and oriented n4Rxokgrkdtzwcp: Appropriate mood and behaviorSkin: Warm and dryMedication:Medications: [...] right colectomy-pain meds-encourage IS-Lovenox for DVT prophylaxis2. Xxwtoydmdpsp-ecvjix-iapi metoprolol IV until able to take PO-cont [...] Updated: 04-Jul-2017 12:14 by Ventura Thacker) Normal [facility] Daily Progress Note-Melly merino 07-04-2017 [...] last 24 hours are: Intake Output Net 9619 750 1929 T P R BP IrK7Vbkil 36.5 86 15 163/71 98%Date/Time 07/04 4:00 [...] Updated: 04-Jul-2017 07:48 by Manny Arana) Normal [facility] LACTATEon 07-04-2017 Lactate molar conc 0.9 mmol/L Normal 0.4 - 2.0 [facility] Comment on above: Result Comment: Hali puncture immediately after or during the administration of Metamizole may lead to falsely low results. Testing should be performed immediately prior to Metamizole dosing. Performed By: #### L ACT ####[address] [address] ARTERIAL BLOOD GASon 018 JACKIE'S TEST[COLLATERAL CIRCULATION] Positive Normal [facility] Comment on above: Result Comment: abg done on vent asv mode 100% mv, 60% fio2. results given to nurse alberto inicu Performed By: #### L IPID ####[address] [address] SITE OF ARTERIAL PUNCTURE RIGHT RADIAL Normal [facility] Comment on above: Performed By: #### L IPID ####[address] [place] [address] BASE EXCESS-BLOOD -0.7 mmol/L Normal -2.0 - 3.0 [facility] Comment on above: Performed By: #### L IPID ####[address] [place] [address] FIO2 60 % Normal [facility] Comment on above: Performed By: #### L IPID ####[address] [address] Oxygen ppres (BldA) 109 mm[Hg] High 85 - 95 [facility] Comment on above: Performed By: #### L IPID ####[facility] [place] [address] PCO2 36 mmHg Low 38 - 42 [facility] Comment on above: Performed By: #### L IPID ####[facility] [place] [address] RBC Auto #/vol (Bld) 23.4 mmol/L Normal 22.0 - 26.0 [facility] Comment on above: Performed By: #### L IPID ####[facility] [place] [address] SO2 98 % Normal 94 - 100 [facility] Comment on above: Performed By: #### L IPID ####[address] [place] [address] pH (Bld) 7.42 [pH] Normal 7.38 - 7.42 [facility] Comment on above: Performed By: #### L IPID ####[address] [address] CBCon 07-03-2017 Erythrocyte distribution width Auto Ratio (RBC) 13.9 % Normal 11.5 - 14.5 [facility] Comment on above: Performed By: #### V TDOH ####[facility] [place] [address] Hematocrit Auto Volume Fraction (Bld) 38.6 % Normal 36.0 - 46.0 [facility] Comment on above: Performed By: #### V TDOH ####[facility] [place] [address] Hemoglobin mass conc (Bld) 12.7 g/dL Normal 12.0 - 16.0 [facility] Comment on above: Performed By: #### V TDOH ####[facility] [place] [address] MCHC Auto mass conc (RBC) 32.9 g/dL Normal 32.0 - 36.0 [facility] Comment on above: Performed By: #### V TDOH ####[facility] [place] [address] MCV Auto Entitic volume (RBC) 102 fL High 80 - 100 [facility] Comment on above: Performed By: #### V TDOH ####[facility] [place] [address] Platelets Auto #/vol (Bld) 214 10*3/uL Normal 150 - 450 [facility] Comment on above: Performed By: #### V TDOH ####[facility] [facility] [place] [address] RBC Auto #/vol (Bld) 3.79 x10E12/L Low 4.00 - 5.20 [facility] Comment on above: Performed By: #### V TDOH ####[facility] [place] [address] WBC Auto #/vol (Bld) 6.4 10*3/uL Normal 4.4 - 11.3 [facility] Comment on above: Performed By: #### V TDOH ####[facility] [place] [address] Erythrocyte distribution width Auto Ratio (RBC) 13.8 % Normal 11.5 - 14.5 [facility] Comment on above: Performed By: #### L IPID ####[address] [address] Hematocrit Auto Volume Fraction (Bld) 43.6 % Normal 36.0 - 46.0 [facility] Comment on above: Performed By: #### L IPID ####[id number] [place] [address] Hemoglobin mass conc (Bld) 14.2 g/dL Normal 12.0 - 16.0 [facility] Comment on above: Performed By: #### L IPID ####[id number] [place] [address] MCHC Auto mass conc (RBC) 32.6 g/dL Normal 32.0 - 36.0 [facility] Comment on above: Performed By: #### L IPID ####[address] [address] MCV Auto Entitic volume (RBC) 103 fL High 80 - 100 [facility] Comment on above: Performed By: #### L IPID ####[facility] [place] [address] Platelets Auto #/vol (Bld) 236 10*3/uL Normal 150 - 450 [facility] Comment on above: Performed By: #### L IPID ####[facility] [place] [address] RBC Auto #/vol (Bld) 4.24 x10E12/L Normal 4.00 - 5.20 [facility] Comment on above: Performed By: #### L IPID ####[facility] [place] [address] WBC Auto #/vol (Bld) 4.7 10*3/uL Normal 4.4 - 11.3 [facility] Comment on above: Performed By: #### L IPID ####[id number] [place] [address] CHEST 1 VIEWon 07-03-2017 CHEST 1 VIEW [...] verification.Electronically signed by: BLU ACEVEDO MD Normal [facility] COMPREHENSIVE PANELon 2017 Albumin mass conc 2.7 g/dL Low 3.4 - 5.0 [facility] Comment on above: Performed By: #### V TDOH ####[facility] [place] [address] ALP enzyme act/vol 36 U/L Normal 33 - 136 [facility] Comment on above: Performed By: #### V TDOH ####[facility] [place] [address] ALT enzyme act/vol 19 U/L Normal 7 - 45 [facility] Comment on above: Result Comment: Daniel ents treated with Sulfasalazine may generate falsely decreased results for ALT. Performed By: #### V TDOH ####[facility] [place] [address] Anion gap 3 molar conc 14 mmol/L Normal 10 - 20 [facility] Comment on above: Performed By: #### V TDOH ####[facility] [place] [address] AST enzyme act/vol 21 U/L Normal 9 - 39 [facility] Comment on above: Performed By: #### V TDOH ####[facility] [place] [address] Bilirubin mass conc 1.1 mg/dL Normal 0.0 - 1.2 [facility] Comment on above: Performed By: #### V TDOH ####[facility] [place] [address] Calcium mass conc 8.3 mg/dL Low 8.6 - 10.3 [facility] Comment on above: Performed By: #### V TDOH ####[facility] [place] [address] Chloride molar conc 105 mmol/L Normal 98 - 107 [facility] Comment on above: Performed By: #### V TDOH ####[facility] [place] [address] Creatinine mass conc 1.12 mg/dL High 0.50 - 1.05 [facility] Comment on above: Performed By: #### V TDOH ####[facility] [place] [address] GFR- AM. 57 mL/min/1.73m2 Abnormal >60 [facility] Comment on above: Result Comment: CALC ULATIONS OF ESTIMATED GFR ARE PERFORMED USING THE MDRD STUDY EQUATION FOR THE IDMS-TRACEABLE CREATININE METHODS. CLIN CHEM 2007;53:766-72 Performed By: #### V TDOH ####[facility] [place] [address] GFR-NON AM. 47 mL/min/1.73m2 Abnormal >60 [facility] Comment on above: Performed By: #### V TDOH ####[facility] [place] [address] Glucose mass conc 148 mg/dL High 74 - 99 [facility] Comment on above: Performed By: #### V TDOH ####[facility] [place] [address] HCO3 molar conc (Bld) 22 mmol/L Normal 21 - 32 [facility] Comment on above: Performed By: #### V TDOH ####[facility] [place] [address] Potassium molar conc 3.9 mmol/L Normal 3.5 - 5.3 [facility] Comment on above: Performed By: #### V TDOH ####[facility] [place] [address] Protein mass conc 5.4 g/dL Low 6.4 - 8.2 [facility] Comment on above: Performed By: #### V TDOH ####[facility] [place] [address] Sodium molar conc 137 mmol/L Normal 136 - 145 [facility] Comment on above: Performed By: #### V TDOH ####[facility] [place] [address] Urea nitrogen mass conc 31 mg/dL High 6 - 23 [facility] Comment on above: Performed By: #### V TDOH ####[facility] [place] [address] Albumin mass conc 3.0 g/dL Low 3.4 - 5.0 [facility] Comment on above: Performed By: #### V TDOH ####[facility] [place] [address] ALP enzyme act/vol 41 U/L Normal 33 - 136 [facility] Comment on above: Performed By: #### V TDOH ####[facility] [place] [address] ALT enzyme act/vol 19 U/L Normal 7 - 45 [facility] Comment on above: Result Comment: Daniel ents treated with Sulfasalazine may generate falsely decreased results for ALT. Performed By: #### V TDOH ####[facility] [place] [address] Anion gap 3 molar conc 16 mmol/L Normal 10 - 20 [facility] Comment on above: Performed By: #### V TDOH ####[facility] [place] [address] AST enzyme act/vol 22 U/L Normal 9 - 39 [facility] Comment on above: Performed By: #### V TDOH ####[facility] [place] [address] Bilirubin mass conc 1.0 mg/dL Normal 0.0 - 1.2 [facility] Comment on above: Performed By: #### V TDOH ####[facility] [place] [address] Calcium mass conc 8.8 mg/dL Normal 8.6 - 10.3 [facility] Comment on above: Performed By: #### V TDOH ####[facility] [place] [address] Chloride molar conc 103 mmol/L Normal 98 - 107 [facility] Comment on above: Performed By: #### V TDOH ####[facility] [place] [address] Creatinine mass conc 1.12 mg/dL High 0.50 - 1.05 [facility] Comment on above: Performed By: #### V TDOH ####[facility] [place] [address] GFR- AM. 57 mL/min/1.73m2 Abnormal >60 [facility] Comment on above: Result Comment: CALC ULATIONS OF ESTIMATED GFR ARE PERFORMED USING THE MDRD STUDY EQUATION FOR THE IDMS-TRACEABLE CREATININE METHODS. CLIN CHEM 2007;53:766-72 Performed By: #### V TDOH ####[facility] [place] [address] GFR-NON AM. 47 mL/min/1.73m2 Abnormal >60 [facility] Comment on above: Performed By: #### V TDOH ####[facility] [place] [address] Glucose mass conc 157 mg/dL High 74 - 99 [facility] Comment on above: Performed By: #### V TDOH ####[facility] [place] [address] HCO3 molar conc (Bld) 22 mmol/L Normal 21 - 32 [facility] Comment on above: Performed By: #### V TDOH ####[facility] [place] [address] Potassium molar conc 4.1 mmol/L Normal 3.5 - 5.3 [facility] Comment on above: Performed By: #### V TDOH ####[facility] [place] [address] Protein mass conc 6.0 g/dL Low 6.4 - 8.2 [facility] Comment on above: Performed By: #### V TDOH ####[facility] [place] [address] Sodium molar conc 137 mmol/L Normal 136 - 145 [facility] Comment on above: Performed By: #### V TDOH ####[facility] [place] [address] Urea nitrogen mass conc 29 mg/dL High 6 - 23 [facility] Comment on above: Performed By: #### V TDOH ####[facility] [place] [address] Consult-Cardiologyon 018 Consult-Cardiology Service:Service: CardiologyConsult:Consult requested by [...] Restoril: ConfusionObjective:Objective Information: T P R BP [id number] 36.5 87 21 103/55 95%Date/Time 07/03 8:07/03 [...] contusions or wounds, noclubbingNeurological: alert and oriented o7Ngybnjeehuqyu: Appropriate mood and behaviorSkin: Warm and dryMedications:Medications:C [...] Urine MARINA Reference Range: STRAW,YELLOWAppearance, Urine HAZYSpecific [place], Urine 1.026pH, Urine 5.0Protein, Urine 30(1+) AGlucose, [...] Elevated glucose-Could be stress response-check hgb A1C6. Vehpok-Gkqbhx-Bmxwsyw closely post op7. Hyperlipidemia-Lipid panel WNL in February 2017-Cont statin when able to eatCritical care time 45 minutesElectronic Signatures:Ventura Thacker) (Signed 05-Jul-2017 11:39) Authored: Signature/Cosignature/Attest ation Co-Signer: Service, History of Present Illness, Past Medical/Surgical History,Review Family/Social History and ROS, Allergies, Objective,Assessment/Recomme ndations, Signature/Cosignature/Attest fcoionApril Nam ([facility]E [facility]) (Signed 03-Jul-2017 09:53) Authored: Service, History of Present Illness, Past Medical/Surgical History,Review Family/Social History and ROS, Allergies, Objective,Assessment/Recomme ndations, Signature/Cosignature/Attest ationLast Updated: 05-Jul-2017 11:39 by Ventura Thacker) Normal [facility] Consult-Surgeryon 07-03-2017 Consult-Surgery This report has been cancelled. Normal [facility] Daily Progress Note - Critic al Care-SICUon 07-03-2017 Protein mass conc Service:Critical Car e Service:? Service SICUSubjective Data:ID Statement:82-year-old female with PMH of CAD, CHF, CABGx2, anemia, HTN, SBO s/p ex lap [id number] admitted to the ICU for cecal volvulus, SBO, s/p right colectomy POD #1.Patient presented to the [facility] 07/02/17 complaining of severe periumbilicalabdominal pain. [...] Data:? Objective Information T P R BP XbL3Spntp 36.1 81 18 135/58 94%Date/Time 07/03 12:00 [...] last 24 hours are: Intake Output Net [id number] Drain and tube details (included in I&O [...] changesCardiovascular:Diagno sis:No acute issues, h/o CAD CHF, EHNXs1Mdkygmnhlg: HR normal. NSR on ECGPlan: -cardiology following-continue [...] Bed @ 30 Degrees: yesDate Soto Inserted: [id number]:Urinary Catheter Removed Post-Op Day 2: noReason Patient [...] Subjective Data, Objective Data, Assessment and PlanAltagracia TrammellLGENDA) (Signed 03-Jul-2017 13:34) Authored: Service, Subjective Data, Objective Data, Assessment and PlanLast Updated: 03-Jul-2017 21:22 by Manny Arana) Normal [facility] Discharge Planning Noteon Discharge Planning Note Discharge Needs Assessment:? Discharge Planning Assessment Juhs18-Vap-1450? Discharge Planning Assessment Completed bySom Chaudhari RN [...] 07/06/17 1056Tried to meet with patient today, LINE LEAD feeding patient and she stated patientconfused today, Unable to talk with patient due to confusion, Will continue tofollow. Som Chaudhari RN (Patroller) 07/07/17 1545Met with patient about discharge plans, lives with spouse in a one story homewith 2 steps to enter, Therapy recommended SNF for rehab, [facility]. [id number] completed.Som Chaudhari RN (Patroller) 07/08/17 1540- Discussed plan of care in interdisciplinary rounds. Patient isinterested in staying here for swing bed is able. [facility] Referral sent to team to review and willfollow. Javier Muller RN Electronic Signatures:Som Chaudhari (CLIN COOR) (Signed 07-Jul-2017 15:47)Authored: Discharge Planning Wanda Cheung (CLIN COOR) (Signed 08-Jul-2017 15:41)Authored: Discharge Planning Note Last Updated: 08-Jul-2017 15:41 by Wanda Muller (CLIN COOR) References:1. Data Referenced From Admission Risk Screen - Adult 07/02/2017 08:21 PM Normal [facility] FLUID CULTURE/SM.,BACTERIALo n 07-03-2017 FLUID CULTURE/SM.,BACTERIAL PATIENT: KATHERINE JUDGE LOCATION: [address]#: [id number] : [birth year] AGE: SEX: F ORDERED BY: DEBRA ARANA: FLUID COLLECTED: 07/03/17 00:58ANTIBIOTICS AT ESDRAS.: RECEIVED : 07/03/17 08:21SITE: peritineum R E S U L T S GRAM STAIN FINAL 07/03/17 09:41 NO GRANULOCYTES OR ORGANISMS SEEN. FLUID CULTURE/SM.,BACTERIAL FINAL 07/06/17 09:20 NO GROWTH AEROBICALLY OR ANAEROBICALLY. Normal [facility] Comment on above: Performed By: #### U A ####[facility] [place] [address] LACTATEon 07-03-2017 Lactate molar conc Canceled Normal [facility] Comment on above: Order Comment: TEST LACTATE WAS CANCELLED, 07/03/2017 09:41 ?Cancel Reason: Alternativetreatment needed. Result Comment: Hali puncture immediately after or during the administration of Metamizole may lead to falsely low results. Testing should be performed immediately prior to Metamizole dosing. Performed By: #### V TDOH ####[facility] [place] [address] Lactate molar conc 2.6 mmol/L High 0.4 - 2.0 [facility] Comment on above: Result Comment: Hali puncture immediately after or during the administration of Metamizole may lead to falsely low results. Testing should be performed immediately prior to Metamizole dosing. Performed By: #### V TDOH ####[facility] [place] [address] Lactate molar conc 3.0 mmol/L High 0.4 - 2.0 [facility] Comment on above: Result Comment: Hali puncture immediately after or during the administration of Metamizole may lead to falsely low results. Testing should be performed immediately prior to Metamizole dosing. Performed By: #### V TDOH ####[facility] [place] [address] Lactate molar conc 2.9 mmol/L High 0.4 - 2.0 [facility] Comment on above: Result Comment: Hali puncture immediately after or during the administration of Metamizole may lead to falsely low results. Testing should be performed immediately prior to Metamizole dosing. Performed By: #### V TDOH ####[facility] [place] [address] MAGNESIUMon 07-03-2017 Magnesium mass conc 1.73 mg/dL Normal 1.60 - 2.40 [facility] Comment on above: Performed By: #### V TDOH ####[facility] [place] [address] Nutrition Therapy-Assessment on 07-03-2017 Nutrition Therapy-Assessment Assessment Subjective/Objective:Note Type: AssessmentNote Authored by: Registered Dietitian NutritionistPager Number: [phone] Note:The patient is a 82 year old [...] bowel obstruction:Objective Information: T P R BP VmR5Gnzrz 36.1 83 13 92/53 93%Date/Time 07/03 12:00 [...] Trending ViewResult 03-Jul-2017 08:23:00 03-Jul-2017 05:20:00 03-Jul-2017 02:05:[id number] 17:00:00Lactate, Level 2.6 H 3.0 H 2.9 [...] Urine MARINA Reference Range: STRAW,YELLOWAppearance, Urine HAZYSpecific [place], Urine 1.026pH, Urine 5.0Protein, Urine 30(1+) AGlucose, [...] mL Run at: 60 mL/hr IntraVenous , [id number] Orders: NPO, Routine Except Sips of Water Special Instuctions: may have ice chips and popsicles also, [id number]/Nutrition Related History:Change in Oral Intake/Appetite: decrease -Pt [...] less than 5 days NPO/clear liquids, Blood Pnqdzrd30-837 mg/dl, lab values within normal limits, promote [...] 03-Jul-2017 17:04 by Silvia Tyler ([place], [place]) [facility] OPERATIVE REPORTon 8 OPERATIVE REPORT [facility] [place], [place] [address]Voftybc Name: KATHERINE JUDGE. NMRN: [id number]: 1935Encounter Number: [id number] of Service: 07/03/2017[facility]Patient Type: ISurgeon: Manny Arana M.D.Report Type: [...] discussion with thepatient and discussion with the cold roll packer sheet iron, it was felt that she would be [...] present, and the small bowel itselfwas viable.A oyzw-nz-hadk ileocolonic stapled functional end-to-end handsewn 2-layeredanastomosis was [...] hematoma, but itappeared to be viable. A qwpt-ye-oqgl stapled anastomosis was performed afterensuring that I [...] this. I then reanastomosed the bowelperforming a weoq-ix-bmnn stapled anastomosis after opening this at thecorners. I had complete control of the bowel clamps, I performed cggxz-vk-uphq stapled anastomosis. I then performed another iqowgebimdvkh-cd-wek handsewn 2-layered anastomosis, which on completion had [...] M.D. ESTTT: 07/03/2017 06:25 AM ESTDICTATION NUMBER: [id number] JOB NUMBER: [id number]:Benjy Garnett M.D., [id number] signed by Dr Manny Arana 07/04/2017 09:43:47 AM Normal [facility] PHOSPHORUSon 07-03-2017 Phosphate mass conc 3.7 mg/dL Normal 2.5 - 4.9 [facility] Comment on above: Result Comment: The performance characteristics of phosphorus testing in heparinized plasma have been validated by the individual laboratory site where testing is performed. Testing on heparinized plasma is not approved by the FDA; however, such approval is not necessary. Performed By: #### V TDOH ####[facility] [place] [address] Admission Risk Screen - Adul ton 07-02-2017 [...] Directive type Living Will, Durable Power of Living Specialist forHealthcare? Living Will Availability Living Will not available now? Living Will Requested 02-Jul-2017? Durable Power of Living Specialist Availability DPOA not available now? Durable Power of Living Specialist Requested 02-Jul-2017? Durable Power of Living Specialist contact (name and number) Ganga Judge (son)[phone]? Advance Directive Mental Health not applicableFalls Screen:Type [...] instruction? Cultural Considerations none? Developmental Considerations none? Uatsdin Considerations noneLearning Assessment (Other Learner):? Other learner [...] lowerSpiritual Screen:? Are there any cultural, spiritual, samaritan practices/values/needs that areimportant for us to know? noCAGE:Is this an injured patient at a Trauma Center ([facility] [place]): noVaccinations:Vaccination - Influenza Vaccination Screen:? [...] CompletePressure Injury:Pressure Injury Present on Admission noElectronic Signatures:Emiyl Henderson (SUPV) (Signed 02-Jul-2017 20:35) Authored: Admission Risk Screens, Vaccinations, Moustapha, Pressure InjuryLast Updated: 02-Jul-2017 20:35 by Emily Henderson (SUPV) Normal [facility] CBC AND DIFFERENTIALon 07-02 % AUTOMATED IMMATURE GRAN 0.4 % Normal 0.0 - 0.9 [facility] Comment on above: Result Comment: Perc ent differential counts (%) should be interpreted in the context of the absolute cell counts (cells/L). Performed By: #### C BCDF ####[address] [address] % NEUTROPHIL 83.4 % Normal 40.0 - 80.0 [facility] Comment on above: Performed By: #### C BCDF ####[id number] [place] [address] Basophils/100 WBC Auto (Bld) 0.03 x10E9/L Normal 0.00 - 0.10 [facility] Comment on above: Performed By: #### C BCDF ####[address] [place] [address] Basophils/100 WBC Auto (Bld) 0.2 % Normal 0.0 - 2.0 [facility] Comment on above: Performed By: #### C BCDF ####[address] [address] Eosinophils Auto #/vol (Bld) 0.01 10*3/uL Normal 0.00 - 0.40 [facility] Comment on above: Performed By: #### C BCDF ####[address] [place] [address] Eosinophils/100 WBC Auto (Bld) 0.1 % Normal 0.0 - 6.0 [facility] Comment on above: Performed By: #### C BCDF ####[address] [address] Erythrocyte distribution width Auto Ratio (RBC) 13.6 % Normal 11.5 - 14.5 [facility] Comment on above: Performed By: #### C BCDF ####[address] [address] Hematocrit Auto Volume Fraction (Bld) 44.8 % Normal 36.0 - 46.0 [facility] Comment on above: Performed By: #### C BCDF ####[address] [address] Hemoglobin mass conc (Bld) 15.0 g/dL Normal 12.0 - 16.0 [facility] Comment on above: Performed By: #### C BCDF ####[address] [address] Lymphocytes Auto #/vol (Bld) 1.63 10*3/uL Normal 0.80 - 3.00 [facility] Comment on above: Performed By: #### C BCDF ####[address] [address] Lymphocytes/100 WBC Auto (Bld) 12.8 % Low 13.0 - 44.0 [facility] Comment on above: Performed By: #### C BCDF ####[address] [address] MCHC Auto mass conc (RBC) 33.5 g/dL Normal 32.0 - 36.0 [facility] Comment on above: Performed By: #### C BCDF ####[address] [address] MCV Auto Entitic volume (RBC) 100 fL Normal 80 - 100 [facility] Comment on above: Performed By: #### C BCDF ####[address] [address] Monocytes Auto #/vol (Bld) 0.40 10*3/uL Normal 0.05 - 0.80 [facility] Comment on above: Performed By: #### C BCDF ####[address] [address] Monocytes/100 WBC Auto (Bld) 3.1 % Normal 2.0 - 10.0 [facility] Comment on above: Performed By: #### C BCDF ####[address] [address] Neutrophils Auto #/vol (Bld) 10.64 10*3/uL High 1.60 - 5.50 [facility] Comment on above: Performed By: #### C BCDF ####[address] [address] Platelets Auto #/vol (Bld) 260 10*3/uL Normal 150 - 450 [facility] Comment on above: Performed By: #### C BCDF ####[address] [address] RBC Auto #/vol (Bld) 4.49 x10E12/L Normal 4.00 - 5.20 [facility] Comment on above: Performed By: #### C BCDF ####[address] [address] WBC Auto #/vol (Bld) 12.8 10*3/uL High 4.4 - 11.3 [facility] Comment on above: Performed By: #### C BCDF ####[address] [address] COMPREHENSIVE PANELon 2017 Albumin mass conc 4.7 g/dL Normal 3.4 - 5.0 [facility] Comment on above: Performed By: #### C MP ####[address] [address] ALP enzyme act/vol 62 U/L Normal 33 - 136 [facility] Comment on above: Performed By: #### C MP ####[address] [place] [address] ALT enzyme act/vol 33 U/L Normal 7 - 45 [facility] Comment on above: Result Comment: Daniel ents treated with Sulfasalazine may generate falsely decreased results for ALT. Performed By: #### C MP ####[id number] [place] [address] Anion gap 3 molar conc 13 mmol/L Normal 10 - 20 [facility] Comment on above: Performed By: #### C MP ####[address] [address] AST enzyme act/vol 34 U/L Normal 9 - 39 [facility] Comment on above: Performed By: #### C MP ####[address] [address] Bilirubin mass conc 1.0 mg/dL Normal 0.0 - 1.2 [facility] Comment on above: Performed By: #### C MP ####[address] [address] Calcium mass conc 10.9 mg/dL High 8.6 - 10.3 [facility] Comment on above: Performed By: #### C MP ####[address] [address] Chloride molar conc 98 mmol/L Normal 98 - 107 [facility] Comment on above: Performed By: #### C MP ####[address] [address] Creatinine mass conc 1.25 mg/dL High 0.50 - 1.05 [facility] Comment on above: Performed By: #### C MP ####[address] [place] [address] GFR- AM. 50 mL/min/1.73m2 Abnormal >60 [facility] Comment on above: Result Comment: CALC ULATIONS OF ESTIMATED GFR ARE PERFORMED USING THE MDRD STUDY EQUATION FOR THE IDMS-TRACEABLE CREATININE METHODS. CLIN CHEM 2007;53:766-72 Performed By: #### C MP ####[address] [address] GFR-NON AM. 41 mL/min/1.73m2 Abnormal >60 [facility] Comment on above: Performed By: #### C MP ####[facility] [place] [address] Glucose mass conc 127 mg/dL High 74 - 99 [facility] Comment on above: Performed By: #### C MP ####[address] [place] [address] HCO3 molar conc (Bld) 32 mmol/L Normal 21 - 32 [facility] Comment on above: Performed By: #### C MP ####[address] [place] [address] Potassium molar conc 3.8 mmol/L Normal 3.5 - 5.3 [facility] Comment on above: Performed By: #### C MP ####[address] [place] [address] Protein mass conc 9.3 g/dL High 6.4 - 8.2 [facility] Comment on above: Performed By: #### C MP ####[address] [place] [address] Sodium molar conc 139 mmol/L Normal 136 - 145 [facility] Comment on above: Performed By: #### C MP ####[address] [place] [address] Urea nitrogen mass conc 29 mg/dL High 6 - 23 [facility] Comment on above: Performed By: #### C MP ####[address] [address] [address] ABDOMEN AND PELVIS WO CON TRASTon [...] y signed by: BLU ACEVEDO MD Normal [facility] History and Physicalon 07-02 History [...] Rash, UlcerObjective:Objective Information: T P R BP [id number] 36.6 90 16 111/58 100%Date/Time 07/02 15:10 [...] 96 hours after admission to the [facility].Electronic Signatures:Manny Arana) (Signed 02-Jul-2017 20:34) Authored: History of Present Illness, Comorbidities, Past Medical/SurgicalHistory, Social History, Allergies, Review of Systems, Objective, Assessmentand Plan, Signatures/Attestation/Certi ficationLast Updated: 02-Jul-2017 20:34 by Manny Arana) Normal [facility] LACTATEon 07-02-2017 Lactate molar conc 1.5 mmol/L Normal 0.4 - 2.0 [facility] Comment on above: Result Comment: Hali puncture immediately after or during the administration of Metamizole may lead to falsely low results. Testing should be performed immediately prior to Metamizole dosing. Performed By: #### L ACT ####[facility] [place] [address] LIPASEon 07-02-2017 Lipase enzyme act/vol 455 U/L High 9 - 82 [facility] Comment on above: Result Comment: Hali puncture immediately after or during the administration of Metamizole may lead to falsely low results. Testing should be performed immediately prior to Metamizole dosing. Performed By: #### L IPAS ####[address] [place] [address] Patient Profile - Adult v2on 07-02-2017 Protein mass conc Profile:Initial Info :How to be Addressed NaomiSpoken Language Preferred Malaysian (1)Source of Information patientAre you currently using the Personal Electronic Health Record or [facility] noAre you interested in learning more about [facility] for the management of yourhealth yes, information providedEmail address [email or web address] Medical [email or web address] d Reason for Admission Intestines [...] - Adult v2 12/26/2016 06:36 PM Normal [facility] Preop Checkliston 07-02-2017 Preop Checklist [...] 02-Jul-2017 21:30 by Shawnee Rodríguez (RN) Normal [facility] Provider Note - EDon 018 [...] Medical History, Active? Family spokesperson: Other, CARLOS [phone] BROTHERPAUL VELOZ [phone], Active? Narcotic Use: Other, Active? Clostridium difficile toxin (C-Diff): Infection Control, came with ([facility]), Active, 27-Aug-2012? Methicillin-Resistant Staph Aureus (MRSA): Infection Control, sputum,Active, Mar 2012? .Pneumonia- Pneumococcal polysaccharide vaccine-adult: Immunizations,Active? .Influenza- Influenza Virus: Immunizations, Active, [id number], Intolerance, Adverse Event: Allergies:? Lincocin: Drug, Rash, [...] 60 mg oral tablet: Last Modified Date/Time: [id number]? Os-Ramiro Calcium+D3 oral tablet: Last Modified Date/Time: [...] Triage - ED 07/02/2017 3:10 PM Normal [facility] TYPE + SCREENon 07-02-2017 ABO TYPE O Normal [facility] Comment on above: Performed By: #### L IPID ####[facility] [place] [address] RH TYPE Positive Normal [facility] Comment on above: Performed By: #### L IPID ####[facility] [place] [address] Triage - EDon 07-02-2017 Triage - ED Chart Review:CHIEF COMPLAINTALICE Wilber JUDGE is a Female patient with a chief complaint of abdominal pain.Onset of the Complaint: [id number] Date/Time: 02-Jul-2017 14:57Vital Signs:Temperature: 98.0F ( 36.6C) [...] 15:11 by Obdulia Perea (RN PRN) Normal [facility] UA MICROSCOPICon 07-02-2017 BACTERIA 1+ /HPF Abnormal [facility] Comment on above: Performed By: #### U AMIC ####[facility] [place] [address] HYALINE CAST 4+ /LPF Abnormal [facility] Comment on above: Performed By: #### U AMIC ####[address] [place] [address] MUCUS 1+ /LPF Normal [facility] Comment on above: Performed By: #### U AMIC ####[address] [place] [address] RBC 1 /HPF Abnormal 0-5 [facility] Comment on above: Performed By: #### U AMIC ####[address] [place] [address] SQUAMOUS EPITH. CELLS 2 /HPF Normal [facility] Comment on above: Performed By: #### U AMIC ####[address] [place] [address] WBC 3 /HPF Abnormal 0-5 [facility] Comment on above: Performed By: #### U AMIC ####[address] [place] [address] URINALYSISon 07-02-2017 APPEARANCE HAZY Normal CLEAR [facility] Comment on above: Performed By: #### U A ####[address] [address] BILIRUBIN Negative Normal NEGATIVE [facility] Comment on above: Performed By: #### U A ####[address] [place] [address] BLOOD Negative Normal NEGATIVE [facility] Comment on above: Performed By: #### U A ####[address] [place] [address] COLOR MARINA Normal STRAW,YELL OW [facility] Comment on above: Performed By: #### U A ####[address] [address] GLUCOSE Negative Normal NEGATIVE [facility] Comment on above: Performed By: #### U A ####[address] [address] KETONES Negative Normal NEGATIVE [facility] Comment on above: Performed By: #### U A ####[address] [place] [address] LEUKOCYTE ESTERASE TRACE Abnormal NEGATIVE [facility] Comment on above: Performed By: #### U A ####[address] [address] NITRITE Negative Normal NEGATIVE [facility] Comment on above: Performed By: #### U A ####[address] [address] pH 5.0 Normal 5.0 - 8.0 [facility] Comment on above: Performed By: #### U A ####[address] [address] Protein mass conc 30(1+) Abnormal NEGATIVE [facility] Comment on above: Performed By: #### U A ####[address] [address] SPECIFIC GRAVITY 1.026 Normal 1.005 - 1.035 [facility] Comment on above: Performed By: #### U A ####[address] [address] UROBILINOGEN <2.0 Normal 0.0 - 1.9 [facility] Comment on above: Performed By: #### U A ####[address] [address] LIPID PANEL (CORONARY RISK 2 )on 03-02-2017 Cholesterol in HDL mass conc 41.0 mg/dL Normal [facility] Comment on above: Result Comment: . AG E VERY LOW LOW NORMAL HIGH 0-19 Y < 35 < 40 40-45 ---- 20-24 Y ---- < 40 >45 ---- >24 Y ---- < 40 40-60 >60. Performed By: #### L IPID ####[address] [address] Cholesterol in LDL mass conc 69 mg/dL Normal 0 - 99 [facility] Comment on above: Result Comment: . NE EMIR ERVIN AGE DESIRABLE OPTIMAL HIGH HIGH VERY HIGH 0-19 Y 0 - 109 --- 110-129 >/= 130 ---- 20-24 Y 0 - 119 --- 120-159 >/= 160 ---- >24 Y 0 - 99 100-129 130-159 160-189 >/=190. Performed By: #### L IPID ####[facility] [place] [address] Cholesterol in VLDL mass conc 24 mg/dL Normal 0 - 40 [facility] Comment on above: Performed By: #### L IPID ####[facility] [place] [address] Cholesterol mass conc 134 mg/dL Normal 0 - 199 [facility] Comment on above: Result [...] Metamizole dosing. Performed By: #### L IPID ####[facility] [place] [address] Cholesterol.total/Cho lesterol in HDL mass ratio 3.3 {ratio} Normal [facility] Comment on above: Result Comment: REF VALUESDESIRABLE < 3.4HIGH RISK > 5.0 Performed By: #### L IPID ####[facility] [place] [address] Triglyceride mass conc 122 mg/dL Normal 0 - 149 [facility] Comment on above: Result [...] Metamizole dosing. Performed By: #### L IPID ####[facility] [place] [address] VITAMIN D, 25-HYDROXYon 02-10 VITAMIN D, 25-HYDROXY 34 ng/mL Normal [facility] Comment on above: Result Comment: .DEF ICIENCY: < 20 NG/MLINSUFFICIENCY: 20-29 NG/MLOPTIMUM LEVEL: 30-80 NG/MLPOSSIBLE TOXICITY: > 80 NG/MLTHIS ASSAY ACCURATELY QUANTIFIES THE SUM OFVITAMIN D3, 25-HYDROXY AND VIT D2,25-HYDROXY. Performed By: #### V TDOH ####[facility] [place] [address] URINE CULTURE,BACTERIALon URINE CULTURE,BACTERIAL PATIENT: KATHERINE JUDGE LOCATION: [facility]#: [id number] : [birth year] AGE: SEX: F ORDERED BY: GOYO GARNETT: URINE COLLECTED: 01/21/17 22:12ANTIBIOTICS AT ESDRAS.: RECEIVED : 01/21/17 22:12SITE: R E S U L T S URINE CULTURE,BACTERIAL FINAL 01/22/17 14:32 NO SIGNIFICANT GROWTH. Normal [facility] Comment on above: Performed By: #### U RINC ####[facility] [place] [address] Vital Signs Date Time Vital Sign Value Performing Clinician Facility 08-05-2024 14:58-0400 Body temperature 97.5 [degF] Dr. Kam Ocampo Sr. DO Work Phone: [facility] 08-05-2024 14:58-0400 Diastolic blood pressure 94 mm[Hg] Dr. Kam Ocampo Sr. DO Work Phone: [facility] 08-05-2024 14:58-0400 Heart rate 81 /min Dr. Kam Ocampo Sr. DO Work Phone: [facility] 08-05-2024 14:58-0400 Inhaled oxygen flow rate 2 L/min Dr. Kam Ocampo Sr. DO Work Phone: [facility] 08-05-2024 14:58-0400 Respiratory rate 16 /min Dr. Kam Ocampo Sr. DO Work Phone: [facility] 08-05-2024 14:58-0400 SaO2% (BldA) [Mass fraction] 97 % Dr. Kam Ocampo Sr. DO Work Phone: [facility] 08-05-2024 14:58-0400 Systolic blood pressure 152 mm[Hg] Dr. Kam Ocampo Sr. DO Work Phone: [facility] 08-04-2024 15:25-0400 Body height 152.[address] Kam Ocampo Sr. DO Work Phone: [facility] 08-04-2024 15:25-0400 Body mass index (BMI) [Ratio] 22.2 kg/m2 Dr. Kam Ocampo Sr. DO Work Phone: [facility] 08-04-2024 15:25-0400 Body weight 51.[address] Kam Ocampo Sr. DO Work Phone: [facility] 08-02-2024 17:09-0400 Body temperature 98.7 [degF] Dr. Kam Ocampo Sr. DO Work Phone: [facility] 08-02-2024 17:09-0400 Diastolic blood pressure 49 mm[Hg] Dr. Kam Ocampo Sr. DO Work Phone: [facility] 08-02-2024 17:09-0400 Heart rate 84 /min Dr. Kam Ocampo Sr. DO Work Phone: [facility] 08-02-2024 17:09-0400 Respiratory rate 22 /min Dr. Kam Ocampo Sr. DO Work Phone: [facility] 08-02-2024 17:09-0400 SaO2% (BldA) [Mass fraction] 100 % Dr. Kam Ocampo Sr. DO Work Phone: [facility] 08-02-2024 17:09-0400 Systolic blood pressure 135 mm[Hg] Dr. Kam Ocampo Sr. DO Work Phone: [facility] 08-02-2024 17:00-0400 Inhaled oxygen flow rate 2 L/min Dr. Kam Ocampo Sr. DO Work Phone: [facility] 08-02-2024 13:04-0400 Body height 152.[address] Kam Ocampo Sr. DO Work Phone: [facility] 08-02-2024 13:04-0400 Body mass index (BMI) [Ratio] 22.2 kg/m2 Dr. Kam Ocampo Sr. DO Work Phone: [facility] 08-02-2024 13:04-0400 Body weight 51.[address] Kam Ocampo Sr. DO Work Phone: [facility] 07-28-2024 15:31-0400 Body temperature 98.4 [degF] Dr. Jacobo Moya DO Work Phone: [facility] 07-28-2024 15:31-0400 Diastolic blood pressure 47 mm[Hg] Dr. Jacobo Moya DO Work Phone: [facility] 07-28-2024 15:31-0400 Heart rate 98 /min Dr. Jacobo Moya DO Work Phone: [facility] 07-28-2024 15:31-0400 Inhaled oxygen flow rate 2 L/min Dr. Jacobo Moya DO Work Phone: 0(377)880-645190 [place] [address] 07-28-2024 15:31-0400 Respiratory rate 18 /min Dr. Jacobo Moya DO Work Phone: 5(413)594-732851 [place] [address] 07-28-2024 15:31-0400 SaO2% (BldA) [Mass fraction] 98 % Dr. Jacobo Moya DO Work Phone: 8(225)385-498990 [place] [address] 07-28-2024 15:31-0400 Systolic blood pressure 124 mm[Hg] Dr. Jacobo Moya DO Work Phone: 3(085)851-841851 [place] [address] 07-26-2024 13:46-0400 Body height 152.[address] Jacobo Moya DO Work Phone: 7(448)044-467651 [place] [address] 07-26-2024 13:46-0400 Body mass index (BMI) [Ratio] 20.9 kg/m2 Dr. Jacobo Moya DO Work Phone: 1(686)297-297351 [place] [address] 07-26-2024 13:46-0400 Body weight 48.[address] Jacobo Moya DO Work Phone: 7(079)635-089451 [place] [address] 07-25-2024 18:05-0400 Body height 152.[address] Jacobo Moya DO Work Phone: 1(769)181-242651 [place] [address] 07-25-2024 18:05-0400 Body mass index (BMI) [Ratio] 21.1 kg/m2 Dr. Jacobo Moya DO Work Phone: 8(054)179-844390 [place] [address] 07-25-2024 18:05-0400 Body weight 48.[address] Jacobo Moya DO Work Phone: 7(308)677-079490 [place] [address] 07-25-2024 18:03-0400 Body temperature 97.8 [degF] Dr. Jacobo Moya DO Work Phone: 7(543)863-639790 [place] [address] 07-25-2024 18:03-0400 Diastolic blood pressure 64 mm[Hg] Dr. Jacobo Moya DO Work Phone: 7(565)491-429590 [place] [address] 07-25-2024 18:03-0400 Heart rate 63 /min Dr. Jacobo Moya DO Work Phone: [facility] 07-25-2024 18:03-0400 Respiratory rate 16 /min Dr. Jacobo Moya DO Work Phone: [facility] 07-25-2024 18:03-0400 SaO2% (BldA) [Mass fraction] 99 % Dr. Jacobo Moya DO Work Phone: [facility] 07-25-2024 18:03-0400 Systolic blood pressure 132 mm[Hg] Dr. Jacobo Moya DO Work Phone: [facility] 07-25-2024 16:27-0400 Inhaled oxygen flow rate 2 L/min Dr. Jacobo Moya DO Work Phone: [facility] 11-06-2022 21:33-0400 Heart rate 79 /min Dr. Amalia Donahue Work Phone: [facility] 11-06-2022 21:33-0400 Inhaled oxygen flow rate 3 L/min Dr. Amalia Donahue Work Phone: [facility] 11-06-2022 21:33-0400 SaO2% (BldA) [Mass fraction] 97 % Dr. Amalia Donahue Work Phone: [facility] 11-06-2022 20:00-0400 Diastolic blood pressure 85 mm[Hg] Dr. Amalia Donahue Work Phone: [facility] 11-06-2022 20:00-0400 Respiratory rate 27 /min Dr. Amalia Donahue Work Phone: [facility] 11-06-2022 20:00-0400 Systolic blood pressure 172 mm[Hg] Dr. Amalia Donahue Work Phone: [facility] 11-06-2022 19:00-0400 Body temperature 98.3 [degF] Dr. Amalia Donahue Work Phone: [facility] 11-06-2022 16:27-0400 Body height 152.[address] Amalia Donahue Work Phone: [facility] 11-06-2022 16:27-0400 Body mass index (BMI) [Ratio] 21.4 kg/m2 Dr. Amalia Donahue Work Phone: [facility] 11-06-2022 16:27-0400 Body weight 49.[address] Amalia Donahue Work Phone: [facility] 11-02-2022 12:18-0400 Body mass index (BMI) [Ratio] 21.1 kg/m2 Dr. Amalia Donahue Work Phone: [facility] 11-02-2022 12:00-0400 Body temperature 98 [degF] Dr. Amalia Donahue Work Phone: [facility] 11-02-2022 12:00-0400 Diastolic blood pressure 72 mm[Hg] Dr. Amalia Donahue Work Phone: 0(788)014-212285 [place] [address] 11-02-2022 12:00-0400 Heart rate 74 /min Dr. Amalia Donahue Work Phone: [facility] 11-02-2022 12:00-0400 Inhaled oxygen flow rate 1 L/min Dr. Amalia Donahue Work Phone: [facility] 11-02-2022 12:00-0400 Respiratory rate 18 /min Dr. Amalia Donahue Work Phone: [facility] 11-02-2022 12:00-0400 SaO2% (BldA) [Mass fraction] 95 % Dr. Amalia Donahue Work Phone: [facility] 11-02-2022 12:00-0400 Systolic blood pressure 133 mm[Hg] Dr. Amalia Donahue Work Phone: [facility] 11-02-2022 06:00-0400 Body weight 48.[address] Amalia Donahue Work Phone: [facility] 10-31-2022 09:20-0400 Body height 152.[address] Amalia Donahue Work Phone: [facility] 10-30-2022 22:21-0400 Body height 154.94 cm [facility] 10-30-2022 22:21-0400 Body mass index (BMI) [Ratio] 18.8 kg/m2 [facility] 10-30-2022 22:21-0400 Body temperature 98.3 [degF] [facility] 10-30-2022 22:21-0400 Body weight 45.35 kg [facility] 10-30-2022 22:06-0400 Diastolic blood pressure 67 mm[Hg] [facility] 10-30-2022 22:06-0400 Heart rate 75 /min [facility] 10-30-2022 22:06-0400 Respiratory rate 20 /min [facility] 10-30-2022 22:06-0400 SaO2% (BldA) [Mass fraction] 97 % [facility] 10-30-2022 22:06-0400 Systolic blood pressure 168 mm[Hg] [facility] 10-30-2022 21:29-0400 Inhaled oxygen flow rate 4 L/min [facility] 10-27-2022 10:08-0400 Body height 153.67 cm Christ Gardiner Work Phone: [place]-Mahfxqpucd[address] [place] Work Phone: 10-27-2022 10:08-0400 Body mass index (BMI) [Ratio] 19.78 kg/m2 Christ Barontran Work Phone: [place]-Eyvbstzqsp-X[address] [place] Work Phone: 10-27-2022 10:08-0400 Body surface area Derived from formula 1.42 m2 Christ Barontran Work Phone: AG-Hwvoemtilc-H[address] [place] Work Phone: 10-27-2022 10:08-0400 Body weight 46.72 kg Christ Barontran Work Phone: ON-Umhtznbtgz-Y[address] [place] Work Phone: 10-27-2022 10:08-0400 Diastolic blood pressure 48 mm[Hg] Christ Bray Van Nostran Work Phone: FK-Feczkeawbh-[address] [place] Work Phone: 10-27-2022 10:08-0400 Heart rate 90 /min Christ Bray Van Nostran Work Phone: TO-Mgewzqvdwh-Hvkv [address] [place] Work Phone: 10-27-2022 10:08-0400 SaO2% (BldA) [Mass fraction] 93 % Christ Bray Van Nostran Work Phone: AD-Uowxhscvup-Wff[address] [place] Work Phone: 10-27-2022 10:08-0400 Systolic blood pressure 99 mm[Hg] Christ Bray Van Nostran Work Phone: LP-Gpbevrcbgc-D[address] [place] Work Phone: 10-16-2022 07:51-0400 Body temperature 98.29 [degF] Evelin Ruskin DO Work Phone: [employer] 10-16-2022 07:51-0400 Diastolic blood pressure 77 mm[Hg] Evelin Ruskin DO Work Phone: [employer] 10-16-2022 07:51-0400 Heart rate 81 /min Evelin Ruskin DO Work Phone: [employer] 10-16-2022 07:51-0400 Respiratory rate 18 /min Evelin Ruskin DO Work Phone: [employer] 10-16-2022 07:51-0400 SaO2% (BldA) [Mass fraction] 92 % Evelin Ruskin DO Work Phone: [employer] 10-16-2022 07:51-0400 Systolic blood pressure 128 mm[Hg] Evelin Ruskin DO Work Phone: [employer] 10-16-2022 05:00-0400 Body mass index (BMI) [Ratio] 20.14 kg/m2 Veelin Ruskin DO Work Phone: [facility] [employer] 10-16-2022 05:00-0400 Body weight 46.78 kg Evelin Ruskin DO Work Phone: [facility] [employer] 10-15-2022 14:41-0400 Body height 152.4 cm Evelin Ruskin DO Work Phone: [facility] 10-07-2022 13:41-0400 Body mass index (BMI) [Ratio] 20.09 kg/m2 Christ Rashad Maraltran DO Work Phone: [facility] 10-07-2022 13:41-0400 Body temperature 97.2 [degF] Christ Barontran DO Work Phone: [facility] 10-07-2022 13:41-0400 Body weight 47.45 kg Christ Adorno Maraltran DO Work Phone: [facility] 10-07-2022 13:41-0400 Diastolic blood pressure 70 mm[Hg] Christ Adorno Maraltran DO Work Phone: [facility] 10-07-2022 13:41-0400 Heart rate 67 /min Christ Adorno Maraltran DO Work Phone: [facility] 10-07-2022 13:41-0400 Respiratory rate 12 /min Christ Adorno Maraltran DO Work Phone: [facility] 10-07-2022 13:41-0400 SaO2% (BldA) [Mass fraction] 90 % Christ Adorno Maraltran DO Work Phone: [facility] 10-07-2022 13:41-0400 Systolic blood pressure 122 mm[Hg] Christ Adorno Maraltran DO Work Phone: [facility] 09-11-2022 13:01-0400 Body height 153.67 cm Christ Gardiner Work Phone: [place]-Cgiibwqmoy-W[address] [place] Work Phone: 09-11-2022 13:01-0400 Body mass index (BMI) [Ratio] 19.59 kg/m2 Christ Barontran Work Phone: SN-Urtspanilp-Rume [address] [place] Work Phone: 09-11-2022 13:01-0400 Body surface area Derived from formula 1.41 m2 Christ Adorno Nostran Work Phone: JZ-Ylgbyxtjwa-Qmvn [address] [place] Work Phone: 09-11-2022 13:01-0400 Body weight 46.27 kg Christ Adorno Nostran Work Phone: OV-Izqiwhmjsn-Y[address] [place] Work Phone: 09-11-2022 13:01-0400 Diastolic blood pressure 67 mm[Hg] Christ Adorno Nostran Work Phone: UO-Yxnuewgdom-Exso [address] [place] Work Phone: 09-11-2022 13:01-0400 Heart rate 57 /min Christ Barontran Work Phone: PN-Xaxlfdqyrt-Aqbo [address] [place] Work Phone: 09-11-2022 13:01-0400 SaO2% (BldA) [Mass fraction] 92 % Christ Barontran Work Phone: GX-Pumlcbhvya-Dhpy [address] [place] Work Phone: 09-11-2022 13:01-0400 Systolic blood pressure 135 mm[Hg] Christ Asa Adorno Nostran Work Phone: NC-Dmoknelfxn-Yont [address] [place] Work Phone: 06-19-2022 10:40-0400 Body mass index (BMI) [Ratio] 24.08 kg/m2 Christ Rashad Maraltran DO Work Phone: [facility] 06-19-2022 10:40-0400 Body temperature 98.01 [degF] Christ Gardiner DO Work Phone: [facility] 06-19-2022 10:40-0400 Body weight 47.85 kg Christ Adorno Nostran DO Work Phone: [facility] 06-19-2022 10:40-0400 Diastolic blood pressure 66 mm[Hg] Christ Adorno Nostran DO Work Phone: [facility] 06-19-2022 10:40-0400 Heart rate 61 /min Christ Adorno Nostran DO Work Phone: [facility] 06-19-2022 10:40-0400 Respiratory rate 16 /min Christ Adorno Nostran DO Work Phone: [facility] 06-19-2022 10:40-0400 SaO2% (BldA) [Mass fraction] 91 % Christ Adorno Nostran DO Work Phone: [facility] 06-19-2022 10:40-0400 Systolic blood pressure 113 mm[Hg] Christ Adorno Nostran DO Work Phone: [facility] 06-12-2022 08:55-0400 Body height 153.67 cm Christ Adorno Nostran Work Phone: JV-Udiysnbjor-Dfu[address] [place] Work Phone: 06-12-2022 08:55-0400 Body mass index (BMI) [Ratio] 20.55 kg/m2 Christ Adorno Nostran Work Phone: OB-Bwaadsdshc-Vhws [address] [place] Work Phone: 06-12-2022 08:55-0400 Body surface area Derived from formula 1.44 m2 Christ Adorno Nostran Work Phone: VQ-Vwaqjyvuvv-Etrv [address] [place] Work Phone: 06-12-2022 08:55-0400 Body weight 48.54 kg Christ Adorno Nostran Work Phone: TP-Sqgcbicrmd-Ggmc [address] [place] Work Phone: 06-12-2022 08:55-0400 Diastolic blood pressure 65 mm[Hg] Christ Bray Rashad Maraltran Work Phone: WT-Gyvnzqqjvv-Gxsc [address] [address] [place] Work Phone: 06-12-2022 08:55-0400 Heart rate 68 /min Christ Barontran Work Phone: RG-Hnvieeuclv-Zcpz [address] [place] Work Phone: 06-12-2022 08:55-0400 SaO2% (BldA) [Mass fraction] 95 % Christ Adorno Nostran Work Phone: DC-Anpedoheav-Cuoe [address] [place] Work Phone: 06-12-2022 08:55-0400 Systolic blood pressure 145 mm[Hg] Christ Bray Rashad Nostran Work Phone: SD-Fisbdtxodh-Ofxc [address] [place] Work Phone: 06-10-2022 13:57-0400 Body mass index (BMI) [Ratio] 24.06 kg/m2 Christ Adorno Maraltran DO Work Phone: [facility] 06-10-2022 13:57-0400 Body temperature 98.01 [degF] Christ Barontran DO Work Phone: [facility] 06-10-2022 13:57-0400 Body weight 47.81 kg Christ Barontran DO Work Phone: [facility] 06-10-2022 13:57-0400 Diastolic blood pressure 62 mm[Hg] Christ Barontran DO Work Phone: [facility] 06-10-2022 13:57-0400 Heart rate 66 /min Christ Barontran DO Work Phone: [facility] 06-10-2022 13:57-0400 Respiratory rate 14 /min Christ Barontran DO Work Phone: [facility] 06-10-2022 13:57-0400 SaO2% (BldA) [Mass fraction] 92 % Christ Gardiner DO Work Phone: [facility] 06-10-2022 13:57-0400 Systolic blood pressure 130 mm[Hg] Christ Gardiner DO Work Phone: [facility] 05-30-2022 15:11-0400 Heart rate 61 /min Christ Gardiner DO Work Phone: [facility] 05-30-2022 15:11-0400 SaO2% (BldA) [Mass fraction] 90 % Christ Gardiner DO Work Phone: [facility] 05-30-2022 14:57-0400 Body mass index (BMI) [Ratio] 24.35 kg/m2 Christ Gardiner DO Work Phone: [facility] 05-30-2022 14:57-0400 Body temperature 97.59 [degF] Christ Gardiner DO Work Phone: [facility] 05-30-2022 14:57-0400 Body weight 48.4 kg Christ Gardiner DO Work Phone: [facility] 05-30-2022 14:57-0400 Respiratory rate 12 /min Christ Gardiner DO Work Phone: [facility] 04-15-2022 14:18-0500 Body height 141 cm Christ Gardiner DO Work Phone: [facility] 04-15-2022 14:18-0500 Body mass index (BMI) [Ratio] 24.9 kg/m2 Christ Gardiner DO Work Phone: [facility] 04-15-2022 14:18-0500 Body temperature 97.11 [degF] Christ Gardiner DO Work Phone: [facility] 04-15-2022 14:18-0500 Body weight 49.49 kg Christ Gardiner DO Work Phone: [facility] 03-07-2023 14:18-0500 Diastolic blood pressure 60 mm[Hg] Christmayra Barontran DO Work Phone: [facility] 04-15-2022 14:18-0500 Heart rate 63 /min Christ Rashad Agosto DO Work Phone: [facility] 04-15-2022 14:18-0500 Respiratory rate 14 /min Christ Baronnell DO Work Phone: [facility] 04-15-2022 14:18-0500 SaO2% (BldA) [Mass fraction] 92 % Christ Baronnell DO Work Phone: [facility] 04-15-2022 14:18-0500 Systolic blood pressure 108 mm[Hg] Christ Rashad Agosto DO Work Phone: [facility] 03-12-2022 09:59-0500 Body height 153.67 cm Christ Gardiner Work Phone: JK-Wxcqmmniml-Nzht a Work Phone: 03-12-2022 09:59-0500 Body mass index (BMI) [Ratio] 20.94 kg/m2 Christ Gardiner Work Phone: MN-Cnxeuuvzyd-Yzog a Work Phone: 03-12-2022 09:59-0500 Body surface area Derived from formula 1.45 m2 Christ Gardiner Work Phone: YD-Xudcneuevy-Upfr a Work Phone: 03-12-2022 09:59-0500 Body weight 49.44 kg Christ Gardiner Work Phone: ES-Yaqzpjpsxp-Ubuh a Work Phone: 03-12-2022 09:59-0500 Diastolic blood pressure 70 mm[Hg] Christ Gardiner Work Phone: FW-Hfmpmzowny-Wqcj a Work Phone: 03-12-2022 09:59-0500 Heart rate 62 /min Christ E Van Nostran Work Phone: GX-Liuhgxshfc-Mrnx a Work Phone: 03-12-2022 09:59-0500 SaO2% (BldA) [Mass fraction] 92 % Christ Bray Van Nostran Work Phone: AG-Mdlswbvzns-Itxm a Work Phone: 03-12-2022 09:59-0500 Systolic blood pressure 129 mm[Hg] Christ Bray Van Nostran Work Phone: ND-Xtiwrvfwav-Oimy a Work Phone: 10-16-2021 10:45-0400 Body mass [...] 12 /min Christ Adorno Nostran Work Phone: [facility] Work Phone: 10-16-2021 10:45-0400 SaO2% (BldA) [Mass fraction] 93 % Christ Adorno Nostran Work Phone: [facility] Work Phone: 10-16-2021 10:45-0400 Systolic blood pressure 150 mm[Hg] Christ Adorno Nostran Work Phone: [facility] Work Phone: 08-14-2021 13:12-0400 Body height 153.67 cm Christ Adorno Nostran Work Phone: GP-Wuugkzqpro-Eyiy na [address] [place] Work Phone: 08-14-2021 13:12-0400 Body mass index (BMI) [Ratio] 20.36 kg/m2 Christ Adorno Nostran Work Phone: EC-Otkdtdcptd-Qotc na [address] [place] Work Phone: 08-14-2021 13:12-0400 Body surface area Derived from formula 1.43 m2 Christ Adorno Nostran Work Phone: OX-Hjxrubxtyq-Zxsz na [address] [place] Work Phone: 08-14-2021 13:12-0400 Body weight 48.08 kg Christ Adorno Nostran Work Phone: CD-Aqkendnsny-Qnmo na [address] [place] Work Phone: 08-14-2021 13:12-0400 Diastolic blood pressure 72 mm[Hg] Christ Bray Van Nostran Work Phone: RM-Rzcxdnrxsk-Kboh na [address] [place] Work Phone: 08-14-2021 13:12-0400 Heart rate 64 /min Christ Adorno Nostran Work Phone: ZX-Ocvxkmlqop-Xbfn na [address] [place] Work Phone: 08-14-2021 13:12-0400 SaO2% (BldA) [Mass fraction] 96 % Christ Bray Van Nostran Work Phone: DX-Nynydiqumg-Ivho na [address] [place] Work Phone: 08-14-2021 13:12-0400 Systolic blood pressure 142 mm[Hg] Christ Bray Van Nostran Work Phone: PI-Sajlgzcpst-Xqsz na [address] [place] Work Phone: 04-11-2021 10:39-0500 [...] rate 10 /min Christ Barontran Work Phone: [facility] Work Phone: 04-11-2021 10:39-0500 SaO2% (BldA) [Mass fraction] 96 % Christ Adorno Nostran Work Phone: [facility] Work Phone: 04-11-2021 10:39-0500 Systolic blood pressure 116 mm[Hg] Christ Barontran Work Phone: [facility] Work Phone: 04-05-2021 11:27-0500 Body height 153.67 cm Christ Barontran Work Phone: JS-Pgxrboxysn-Kuzz a Work Phone: 04-05-2021 11:27-0500 Body mass index (BMI) [Ratio] 19.98 kg/m2 Christ Barontran Work Phone: EW-Paowanvbwj-Xzjh a Work Phone: 04-05-2021 11:27-0500 Body surface area Derived from formula 1.42 m2 Christ Barontran Work Phone: NU-Xpjdrzcvtd-Vhip a Work Phone: 04-05-2021 11:27-0500 Body weight 47.17 kg Christ Barontran Work Phone: TD-Etowpovqps-Dxip a Work Phone: 04-05-2021 11:27-0500 Diastolic blood pressure 40 mm[Hg] Christ Adorno Nostran Work Phone: WP-Lvsxbnazlh-Iabq a Work Phone: 04-05-2021 11:27-0500 Heart rate 63 /min Christ Adorno Nostran Work Phone: RB-Capssxbpsl-Xoas a Work Phone: 04-05-2021 11:27-0500 SaO2% (BldA) [Mass fraction] 95 % Christ Gardiner Work Phone: ZI-Rxrwxbctef-Hgkc a Work Phone: 04-05-2021 11:27-0500 Systolic blood pressure 82 mm[Hg] Christ Barontran Work Phone: RP-Luiscifeuj-Kbni a Work Phone: 03-08-2021 14:30-0500 Body height 153.67 cm Christ Barontran Work Phone: CO-Hcvzobumqz-Hqdo na Work Phone: 03-08-2021 14:30-0500 Body mass index (BMI) [Ratio] 19.59 kg/m2 Christ Asa Rashad Aliciatran Work Phone: SL-Cyghzydxje-Bjaf na Work Phone: 03-08-2021 14:30-0500 Body surface area Derived from formula 1.41 m2 Christ Barontran Work Phone: VP-Uzaggyifug-Hcep na Work Phone: 03-08-2021 14:30-0500 Body weight 46.27 kg Christ Barontran Work Phone: KZ-Sgapyjbisa-Mffs na Work Phone: 03-08-2021 14:30-0500 Diastolic blood pressure 74 mm[Hg] Christ Asa Rashad Aliciatran Work Phone: TX-Rnhenvuxnb-Sdof na Work Phone: 03-08-2021 14:30-0500 Heart rate 59 /min Christ Bray Rashad Aliciatran Work Phone: HJ-Hnxrtulanj-Moip na Work Phone: 03-08-2021 14:30-0500 SaO2% (BldA) [Mass fraction] 94 % Christ Bray Rashad Aliciatran Work Phone: DN-Yvhmsgwxfj-Snho na Work Phone: 03-08-2021 14:30-0500 Systolic blood pressure 144 mm[Hg] Christ Bray Van Nostran Work Phone: MH-Updcgycufy-Kwyk na Work Phone: 03-08-2021 14:30-0500 0 1 Christ Bray Van Nostran Work Phone: SF-Pldihiqyxm-Atxs na Work Phone: Comment on above: [employer] 12-25-2020 13:55-0500 Body mass index (BMI) [Ratio] 18.98 kg/m2 Christ Bray Van Nostran Work Phone: [facility] Work Phone: 12-25-2020 13:55-0500 Body surface area Derived from formula 1.37 m2 Christ Bray Van Nostran Work Phone: [facility] Work Phone: 12-25-2020 13:55-0500 Body [...] [degF] Christ Bray Van Nostran Work Phone: [facility] Work Phone: 09-10-2020 10:00-0400 [...] pressure 158 mm[Hg] Christ Barontran Work Phone: [facility] Work Phone: 07-30-2020 14:11-0400 Body height 182.88 cm Christ Adorno Nostran Work Phone: [facility]H udson Work Phone: 07-30-2020 14:11-0400 Body mass index (BMI) [Ratio] 10.58 kg/m2 Christ Barontran Work Phone: [facility] Work Phone: 07-30-2020 14:11-0400 Body surface area Derived from formula 1.43 m2 Christ Adorno Nostran Work Phone: [facility] Work Phone: 07-30-2020 14:11-0400 Body temperature 97.7 [degF] Christ Adorno Nostran Work Phone: [facility] Work Phone: 07-30-2020 14:11-0400 Body weight 35.38 kg Christ Barontran Work Phone: [facility] Work Phone: 07-30-2020 14:11-0400 Heart rate 67 /min Christ Asa Rashad Aliciatran Work Phone: [facility] Work Phone: 03-12-2020 11:53-0500 BMI (Body Mass Index) 19.96 kg/m2 Christ Gardiner [facility] Work Phone: 03-12-2020 11:53-0500 Body Temperature 97 [degF] Christ Gardiner [facility] Work Phone: 03-12-2020 11:53-0500 Body weight 46.35 kg Christ Gardiner [facility] Work Phone: 03-12-2020 11:53-0500 BP Diastolic 82 mm[Hg] Christ Rashad Nostran [facility] Work Phone: 03-12-2020 11:53-0500 BP Systolic 135 mm[Hg] Christ Van Nostran [facility] Work Phone: 03-12-2020 11:53-0500 BSA (Body Surface Area) 1.4 m2 Christ Van Nostran [facility] Work Phone: 03-12-2020 11:53-0500 Pulse (Heart Rate) 74 /min Christ Gardiner [facility] Work Phone: 03-12-2020 11:53-0500 Pulse Oximetry 98 % Christmayra Barontran [facility] Work Phone: 09-06-2019 12:14-0400 BMI (Body Mass Index) 20.15 kg/m2 Christ Rashad Nostran [facility] Work Phone: 09-06-2019 12:14-0400 Body Temperature 98 [degF] Christ Rashad Nostran [facility] Work Phone: 09-06-2019 12:14-0400 Body weight 46.81 kg Christ Barontran [facility] Work Phone: 09-06-2019 12:14-0400 BP Diastolic 71 mm[Hg] Christ Rashad Aliciatran [facility] Work Phone: 09-06-2019 12:14-0400 BP Systolic 128 mm[Hg] Christ Rashad Nostran [facility] Work Phone: 09-06-2019 12:14-0400 BSA (Body Surface Area) 1.41 m2 Christ Adorno Nostran [facility] Work Phone: 09-06-2019 12:14-0400 Pulse (Heart Rate) 59 /min Christ Gardiner [facility] Work Phone: 09-06-2019 12:14-0400 [...] 16:28-0400 Body weight 43.55 kg Costa Nieto [facility] Work Phone: 11-30-2018 16:28-0400 BP Diastolic 71 mm[Hg] Costa Nieto [facility] Work Phone: 11-30-2018 16:28-0400 BP Systolic 110 mm[Hg] Costa Nieto [facility] Work Phone: 11-30-2018 16:28-0400 BSA (Body Surface Area) 1.37 m2 Costa Nieto [facility] Work Phone: 11-30-2018 16:28-0400 Pulse (Heart Rate) 68 /min oCsta Nieto [facility] Work Phone: 11-30-2018 16:28-0400 Pulse Oximetry 96 % Costa Nieto [facility] Work Phone: 11-30-2018 16:28-0400 Respiratory Rate 12 /min Costa Nieto [facility] Work Phone: 05-26-2018 16:15-0400 BMI (Body Mass Index) 18.98 kg/m2 Benjy Cabralohar [facility] Work Phone: 05-26-2018 16:15-0400 Body Temperature 98.1 [degF] [facility] Work Phone: 05-26-2018 16:15-0400 Body weight 44.08 kg Chrisnvtai Hugo [facility] Work Phone: 05-26-2018 16:15-0400 BP Diastolic 72 mm[Hg] Niralitai Hugo [facility] Work Phone: 05-26-2018 16:15-0400 BP Systolic 124 mm[Hg] Benjy Cabralohar [facility] Work Phone: 05-26-2018 16:15-0400 BSA (Body Surface Area) 1.37 m2 [facility] Hugo [facility] Work Phone: 05-26-2018 16:15-0400 Pulse (Heart Rate) 58 /min Yu [facility] Work Phone: 05-26-2018 16:15-0400 Pulse Oximetry 95 % Benjy Garnett [facility] Work Phone: 05-26-2018 16:15-0400 Respiratory Rate 12 /min Chrischapo Hugo MP-Christ [facility] Work Phone: 05-26-2018 16:15-0400 Weight 44.08 kg Benjy Garnett [facility] Work Phone: 07-07-2017 07:35-0400 Body temperature 37.0 degrees C [facility] Comment on above: Result Comment: NOTE: PATIENT RESULTS AR E NOT CORRECTED FOR TEMPERATURE. Performed By: #### U AMIC ####[address] [id number] 07-06-2017 17:24-0400 Body temperature 37.0 degrees C [facility] Comment on above: Result Comment: NOTE: PATIENT RESULTS AR E NOT CORRECTED FOR TEMPERATURE. Performed By: #### U A ####[address] [id number] 07-03-2017 03:35-0400 Body temperature 37.0 degrees C [facility] Comment on above: Result Comment: NOTE: PATIENT RESULTS AR E NOT CORRECTED FOR TEMPERATURE. Performed By: #### L IPID ####[place] [id number] Encounters Encounter Date Encounter Type Care Provider Facility Start: 12-05-2024 [facility] Start: 10-25-2024 ambulatory Kam Walters ty:[facility] Start: 10-25-2024 [facility]istered [facility] Start: 09-13-2024 ambulatory Kam Walters ty:[facility] Start: 09-13-2024 Registered Referred Kam Ocampo MD -[facility] Start: 08-17-2024 End: 08-17-[address] Kaden Corcoran MD -[facility] Start: 08-17-2024 End: 08-17-[address] Jacobo Moya DO Work Phone: -[facility] Start: 08-05-2024 Non-patient / Non-visit Dr. Neymar Cunningham MD -[facility] Work Phone: Start: 08-04-2024 Non-patient / Non-visit Dr. Neymar Cunningham MD -[facility] Work Phone: Start: 08-04-2024 End: 08-04-2024 ambulatory [facility] Facility:[facility] Start: 08-04-2024 End: 08-04-2024 Non-patient / Non-visit Dr. Colten Palacios MD -[facility] Work Phone: Start: 08-03-2024 Non-patient / Non-visit Nomi Lee nd, DO [facility] Start: 08-03-2024 Non-patient / Non-visit Dr. Johnny LAU -[facility] Work Phone: Start: 08-02-2024 End: 08-05-2024 Evaluation and management of inpatient Dr. Janine Harrison MD -[facility] Work Phone: Start: 08-02-2024 ambulatory Kam Ocampo Sr. Facilyaa ty:[facility] Start: 08-02-2024 Registered Referred Kam Ocampo MD -[facility] Start: 08-01-2024 End: 08-01-2024 ambulatory Kam Ocampo Sr. Facility:[facility] Start: 08-01-2024 End: 08-01-2024 [facility] Start: 08-01-2024 [facility]: 08-01-2024 End: 08-01-2024 ambulatory Kam FUCHS Facility:[facility] Start: 07-28-2024 Non-patient / Non-visit Dr. Neymar Cunningham MD -[facility] Work Phone: Start: 07-27-2024 Non-patient / Non-visit Dr. Neymar Cunningham MD -[facility] Work Phone: Start: 07-27-2024 Non-patient / Non-visit Dr. Thanh chopra DO [facility] Start: 07-26-2024 Non-patient / Non-visit Dr. Thanh chopra DO [facility] Start: 07-26-2024 Non-patient / Non-visit Dr. Neymar Cunningham MD [facility] Work Phone: Start: 07-26-2024 ambulatory Kam Ocampo Sr. Facili ty:[facility] Start: 07-26-2024 Non-patient / Non-visit [facility] Connor [facility] Start: 07-25-2024 Non-patient / Non-visit Dr. Thanh chopra DO [facility] Start: 07-25-2024 ambulatory Kam Ocampo Sr. Facili ty:[facility] Start: 07-25-2024 End: 07-28-2024 Evaluation and management of inpatient Dr. Hayden Diaz DO -[facility] 3 Work Phone: Start: 04-14-2024 End: 04-14-[address] Kam Ocampo Sr., DO Work Phone: [facility] Work Phone: Start: 04-14-2024 End: 04-14-2024 [facility] Start: 04-14-2024 End: 04-14-2024 ambulatory Kam Ocampo Sr. Facility:[facility] Start: 02-09-2024 ambulatory Kam Ocampo Sr. Facili ty:[facility] Start: 02-09-2024 Registered Referred Kam [facility]campo [facility] Start: 02-08-2024 End: 02-08-2024 Departed Referred Kam Ocampo MD [facility] Start: 02-08-2024 End: 02-08-2024 ambulatory Kam Ocampo Sr. Facility:[facility] Start: 01-26-2024 End: 01-26-2024 Departed Referred Kam Ocampo MD [facility] Start: 01-26-2024 End: 01-26-2024 ambulatory Kam FUCHS Facility:[facility] Start: 01-10-2024 End: 01-10-2024 ambulatory Kam FUCHS Facility:[facility] Start: 12-14-2023 End: 12-14-2023 ambulatory Kam FUCHS Facility:[facility] Start: 10-21-2023 End: 10-21-2023 ambulatory Kam FUCHS Facility:[facility] Start: 09-16-2023 ambulatory Kam FUCHS Facili ty:[facility] Start: 09-02-2023 End: 09-02-2023 ambulatory Kam FUCHS Facility:[facility] Start: 04-15-2023 End: 04-15-2023 ambulatory [facility] Work Phone: Start: 04-15-2023 End: 04-15-2023 Departed Referred [facility] Start: 03-11-2023 End: 03-11-2023 Departed Referred [facility] Start: 02-19-2023 End: 02-19-2023 ambulatory [facility] Work Phone: Start: 02-19-2023 End: 02-19-2023 Departed Referred [facility] Start: 02-19-[address] Amalia Donahue Work Phone: [facility] Start: 02-10-2023 End: 02-10-[address] Amalia Donahue Work Phone: [facility] Work Phone: Start: 02-10-2023 End: 02-10-[address] Amalia Donahue Work Phone: [facility] Start: 01-27-2023 End: 01-27-[address] Amalia Donahue Work Phone: [facility] Start: 12-22-2022 End: 12-22-[address] Amalia Donahue Work Phone: [facility] Work Phone: Start: 12-22-2022 End: 12-22-[address] Amalia Donahue Work Phone: [facility] Work Phone: Start: 12-02-2022 End: 12-02-[address] Amalia Donahue Work Phone: [facility] Work Phone: Start: 12-02-2022 End: 12-02-[address] Amalia Donahue Work Phone: [facility] Start: 12-02-[address] Amalia Donahue Work Phone: [facility] Start: 12-01-2022 End: 12-01-[address] Amalia Donahue Work Phone: [facility] Work Phone: Start: 12-01-2022 End: 12-01-[address] Amalia Donahue Work Phone: [facility] Start: 11-28-[address] Amalia Donahue Work Phone: [facility] Start: 11-10-[address] Amalia Donahue Work Phone: [facility] Start: 11-06-2022 End: 11-07-2022 Emergency department patient visit Dr. Amalia Donahue Work Phone: [facility]-Emergency Department Work Phone: Start: 11-06-[address] Amalia Donahue Work Phone: [facility] Start: 11-02-2022 Non-patient / Non-visit Dr. Shelbi Donahue Work Phone: [facility] Work Phone: Start: 11-01-2022 Non-patient / Non-visit Dr. Shelbi Donahue Work Phone: [facility] Work Phone: Start: 10-31-2022 Non-patient / Non-visit Dr. Shelbi Donahue Work Phone: [facility] Work Phone: Start: 10-31-2022 Non-patient / Non-visit Dr. Shelbi Donahue Work Phone: [facility] Start: 10-31-2022 Non-patient / Non-visit Dr. Shelbi Donahue Work Phone: [facility] Start: 10-30-2022 End: 11-02-2022 Evaluation and management of inpatient [facility]Int[facility] Work Phone: Start: 10-27-2022 Office outpatient vi sit 15 minutes Christ Gardiner Work Phone: IP-Wbfuwoxxlg-Xwjpkamu [address] [place] Work Phone: Start: 10-10-2022 Evaluation and management of inpatient SAIDA ADORNO MARIA DEL CARMEN [facility] Start: 10-10-2022 End: 10-16-2022 Evaluation and management of inpatient Evelin Salcedo DO Work Phone: [facility] 2E TELEMETRY Comment on above: Proctocolitis (Prima ry Dx); Abdominal pain, generalized; Constipation, unspecified constipation type Start: 10-07-2022 End: 10-07-2022 ambulatory [facility] Start: 10-07-2022 End: 10-07-2022 Office outpatient visit 25 minutes Christ Gardiner DO Work Phone: [facility] Comment on above: Benign essential hyp ertension (Primary Dx); Osteoporosis, unspecified osteoporosis type, unspecified pathological fracture presence; Coronary artery disease without angina pectoris, unspecified vessel or lesion type, unspecified whether holy cross or transplanted heart; Stage 3a chronic kidney disease (CMS/HCC); Hypercholesterolemia; Allergic rhinitis, unspecified seasonality, unspecified trigger; Multiple allergies; Lower abdominal pain; Anemia in other chronic diseases classified elsewhere Start: 09-11-2022 Office outpatient vi sit 10 minutes Christ Gardiner Work Phone: FX-Wmtlegsmbh-Tncthh [address] [place] Work Phone: Start: 09-11-[address] Christ Gardiner Facility:[id number] Start: 08-27-2022 AUDIT Christ Vazquez Work Phone: ES-Pwfrqzskci-Dljgg Work Phone: Start: 06-30-[address] Christ Gardiner Facility:[id number] Start: 06-19-2022 End: 06-19-2022 ambulatory [facility] Start: 06-19-2022 End: 06-19-2022 Office outpatient visit 15 minutes Christ Gardiner DO Work Phone: [facility] Comment on above: Hypoxia; Pneumonia of right lower lobe due to infectious organism; Abdominal pain, unspecified abdominal location Start: 06-12-2022 Office outpatient vi sit 15 minutes Christ Gardiner Work Phone: ER-Bbwenmkwrh-Lxpfloss [address] [place] Work Phone: Start: 06-12-2022 ambulatory Ms[address] Apple Gorman lity: Start: 06-10-2022 End: 06-10-2022 ambulatory [facility] Start: 06-10-2022 End: 06-10-2022 Office outpatient visit 25 minutes Christ Gardiner DO Work Phone: [facility] [facility] Comment on above: Pneumonia of right l ower lobe due to infectious organism (Primary Dx); Hypoxia; Benign essential hypertension; Abdominal pain, unspecified abdominal location; Pneumonia of right lung due to infectious organism, unspecified part of lung Start: 05-30-[address] Christ Gardiner Facility:[id number] Start: 05-30-2022 End: 05-30-2022 ambulatory [facility] Start: 05-30-2022 End: 05-30-2022 Office outpatient visit 40 minutes Christ Gardiner DO Work Phone: [facility] Comment on above: Hypoxia (Primary Dx) ; Coronary artery disease without angina pectoris, unspecified vessel or lesion type, unspecified whether holy cross or transplanted heart; Benign essential hypertension; Pneumonia of right lung due to infectious organism, unspecified part of lung Start: 05-29-2022 End: 05-30-2022 ambulatory [facility] Start: 05-09-[address] Christ Gardiner Facility:[id number] Start: 04-15-2022 Encounter for genera l adult medical examination without abnormal findings [facility] Ambulatory Start: 04-15-2022 End: 04-15-2022 ambulatory [facility] Start: 04-15-2022 End: 04-15-2022 Encounter for general adult medical examination without abnormal findings 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); Osteoporosis, unspecified osteoporosis type, unspecified pathological fracture presence; Screening for osteoporosis; Postmenopausal estrogen deficiency; Benign essential hypertension; Coronary artery disease without angina pectoris, unspecified vessel or lesion type, unspecified whether holy cross or transplanted heart; Gastroesophageal reflux disease, unspecified whether esophagitis present; Stage 3a chronic kidney disease; Bilateral carotid artery stenosis; Aortic valve stenosis, etiology of cardiac valve disease unspecified; Anemia in other chronic diseases classified elsewhere; Hypercholesterolemia; Routine general medical examination at health care facility Start: 04-15-2022 End: 04-15-2022 Patient encounter status Christ Gardiner DO Work Phone: [facility] Work Phone: Start: 04-04-2022 Chart Update Christ Vazquez Work Phone: [facility] Work Phone: Start: 03-12-2022 FUV, Provider: Apple Beth, Status: Pen, Time: 11:30 AM Christ Gardiner Work Phone: [facility] Work Phone: Start: 03-12-2022 CAROTID, Provider: ABDOULAYE ALMANZA [facility], Status: Pen, Time: 10:00 AM Christ Gardiner Work Phone: [facility] Work Phone: Start: 03-12-2022 ECHO, Provider: RAI HART,MG CARD, Status: Pen, Time: 9:00 AM Christ Gardiner Work Phone: [facility] Work Phone: Start: 03-12-2022 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 Facyaa lity:[id number] Start: 03-11-2022 AUDIT Christ E Van N [...] minutes Christ Bray Van Nostran Work Phone: JD-Vxbgtpgakk-Ircobq [address] [place] Work Phone: Start: 07-25-2021 AUDIT [...] Christ Bray Van N ostran Work Phone: [facility] Work Phone: Start: 04-15-2021 AUDIT Christ Asa [...] minutes Christ Bray Van Nostran Work Phone: [facility] Work Phone: Start: 04-04-2021 ECHO, Provider: RAI HART,MG CARD, Status: Pen, Time: 1:00 PM Christ Bray Van Nostran Work Phone: [facility] Work Phone: Start: 04-03-2021 AUDIT Christ E Van N ostran Work Phone: [facility] Work Phone: Start: 03-08-2021 Current tobacco non- user cad cap copd pv dm Christ Bray Van Nostran Work Phone: [facility] Work Phone: Start: 02-28-2021 AUDIT Christ Bray [...] minutes Christ Bray Van Nostran Work Phone: [facility] Work Phone: Start: 07-30-2020 Patient encounter procedure Christ Asa Gardiner Work Phone: [facility] Work Phone: Start: 04-16-2020 Patient encounter procedure Christ Adorno Nostran [facility] Work Phone: Start: 04-06-2020 Office outpatient ne w 30 minutes Christ Gardiner Work Phone: [facility] Work Phone: Start: 04-06-2020 Patient encounter procedure Christ Adorno Nostran [facility] Work Phone: Start: 03-22-2020 Patient encounter procedure Christ Adorno Nostran [facility] Work Phone: Start: 03-12-2020 Patient encounter procedure Christ Adorno Nostran [facility] Work Phone: Start: 11-09-2019 Patient encounter procedure Christ Adorno Nostran [facility] Work Phone: Start: 09-06-2019 Patient encounter procedure Christ Adorno Nostran [facility] Work Phone: Start: 04-20-2019 Patient [...] Start: 12-09-2017 Patient encounter procedure Eliot Shin Facility:[facility] Start: 11-25-2017 Patient encounter procedure Benjy Garnett [facility] Work Phone: Start: 11-19-2017 Patient encounter procedure Chrisjuanatayaa CabralHugo [facility] Work Phone: Start: 11-06-2017 Patient encounter procedure Benjy Cabralohar [facility] Work Phone: Start: 11-06-2017 Patient encounter procedure Benjy Garnett Facility:[facility] Start: 10-22-2017 Patient encounter procedure Benjy Garnett [facility] Work Phone: Start: 10-10-2017 Observation care discharge management Benjy Garnett [facility] Start: 10-10-2017 End: 10-13-2017 Evaluation and management of inpatient Benjy Garnett Facility: Start: 10-09-2017 [facility] Start: 10-05-2017 Patient encounter procedure Benjy Garnett Facility:[facility] Start: 09-06-2017 End: 09-08-2017 Evaluation and management of inpatient Daniel-Maximo Cheres Facility:[facility] Start: 09-05-2017 Emergency dept visit high severity&threat funcj [facility] Start: 09-05-2017 End: 09-05-2017 Patient encounter procedure Maria A Vance Facility: Start: 08-26-2017 End: 09-01-2017 Evaluation and management of inpatient Jessenia Tapia Facility:[facility] Start: 08-25-2017 Emergency dept visit high severity&threat funcj Benjy Garnett [facility] Start: 08-25-2017 End: 08-26-2017 Patient encounter procedure FINESSE PINEDA Facility:54 Start: 08-21-2017 Patient encounter procedure Benjy Garnett Facility:54 Start: 07-28-2017 Observation care discharge management Benjy Garnett [facility] Start: 07-28-2017 End: 07-29-2017 Evaluation and management of inpatient Benjy Garnett Facility:54 Start: 07-27-2017 Sbsq observation care/day [facility] Start: 07-26-2017 Initial observation care/day [facility] Start: 07-09-2017 End: 07-17-2017 Evaluation [...] Start: 03-02-2017 Patient encounter procedure Benjy Garnett Facility:[facility] Start: 02-16-2017 Patient encounter procedure Benjy Garnett [facility] Work Phone: Start: 01-21-2017 Patient encounter procedure Benjy Garnett Facility:[facility] Start: 01-12-2017 Patient encounter procedure Niralitayaa Rayaar [facility] Work Phone: Start: 11-25-2016 Patient encounter procedure Niralitayaa Rayaar [facility] Work Phone: Start: 10-01-2016 Patient encounter procedure Benjy Garnett [facility] Work Phone: Start: 07-30-2016 Patient encounter procedure Benjy Hugo [facility] Work Phone: Patient encounter procedure Christ Gardiner Work Phone: [facility] Work Phone: Procedures Date Procedure [...] above: Performed By: #### [id number], [id number] #### [facility] [address] [place], [place], [id number] Performed By: #### B [id number], BTS, BRC, [id number], BAGM ####[facility] [id number] 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/> Chenguttai Hugo Start: 10-09-2017 [...] njx ea seql iv [facility] Start: 08-25-2017 Ther proph/dx njx iv push single/1st sbst/drug Chenguttai Hugo Start: 08-25-2017 Therapeutic [facility] Start: 07-28-2017 Iv infusion hydration each additional hour Chenguttai Hugo Start: 07-27-2017 Iv infusion [facility] additional [facility] Start: 07-26-2017 Iv infusion hydration each additional hour Chenguttai Hugo Start: 07-26-2017 Iv infusion therapy/prophylaxis /dx 1st to 1 hr [facility] Start: 07-07-2017 [facility] Start: 07-04-2017 Resection of Right Large Intestine, [facility] Start: 07-04-2017 Ultrasonography of Left Jugular Veins, Guidance [facility] Start: 07-02-2017 Antibody screen [facility] Comment on above: Performed By: #### LIPID ####[place] [address] Start: 12-11-2011 Exploratory Laparoscopy Christ Gardiner Work Phone: Comment on above: explorative laparotomy ballon angioplast y; Start: 02-09-2009 CABG Christ Gardiner Work Phone: Start: 02-10-2008 Cataract surgery Christ Gardiner Work Phone: Start: 02-10-2008 Total knee replacement hCrist Gardiner Work Phone: Start: 02-09-2003 Total knee [...] Author Start: 05-30-2027 Lipid panel Lipid Panel [facility] Start: 04-03-2026 Lipid panel Lipid Panel [facility] Start: 08-17-2024 Plain x-ray of pelvi s and lower extremity HIP, UNI W/ Pelvis 2-3 Views [facility] Start: 08-17-2024 XR Knee 3 Views [facility] Start: 08-17-2024 XR knee, 3 views Knee 3 Views [facility] Start: 08-17-2024 XR Pelvis and Hip Views [facility] Start: 08-05-2024 Patient discharge [facility] Start: 08-03-2024 Following clinical pathway protocol [facility] Start: 08-03-2024 Application of intermittent pneumatic compression device [facility] Start: 08-02-2024 Assessment of risk o f venous thromboembolism [facility] Start: 08-02-2024 Insertion of cathete r into peripheral vein [facility] Start: 08-02-2024 Measuring intake and output [facility] Start: 08-02-2024 Oxygen therapy [facility] Start: 08-02-2024 Providing care accor ding to standard [facility] Start: 08-02-2024 Provision of activit y privileges [facility] Start: 08-02-2024 Referral for physica l therapy [facility] Start: 08-02-2024 Referral to gastroenterology service [facility] Start: 08-02-2024 Referral to occupati onal therapist [facility] Start: 08-02-2024 Referral to service [facility] Start: 08-02-2024 [facility] Start: 08-02-2024 Following clinical pathway protocol [facility] Start: 08-02-2024 Admission procedure [facility] Start: 08-02-2024 Hospital admission, emergency, from emergency room, medical nature [facility] Start: 08-02-2024 End: 08-02-2024 [facility] Start: 08-02-2024 Administration of bl ood product [facility] Start: 08-02-2024 Bacteria identified in Urine by Culture Urine Culture [facility] Start: 08-02-2024 Leukocyte reduced re d blood cells [facility] Start: 08-02-2024 Inhalation therapy procedure [facility] Start: 08-02-2024 Patient referral to dietitian [facility] Start: 07-28-2024 [facility] Start: 07-28-2024 Patient discharge [facility] Start: 07-28-2024 [facility] Start: 07-27-2024 Continuous pulse oximetry [facility] Start: 07-27-2024 Dual pressure sponta neous ventilation support [facility] Start: 07-26-2024 End: 07-26-2024 [facility] Start: 07-26-2024 Ambulation therapy management [facility] Start: 07-26-2024 Application of device [facility] Start: 07-26-[address] [facility] Start: 07-26-2024 Following clinical pathway protocol [facility] Start: 07-26-2024 Introduction of urin bhargav catheter [facility] Start: 07-26-2024 Neurovascular assessment [facility] Start: 07-26-2024 Patient education [facility] Start: 07-26-2024 Provision of activit y privileges [facility] Start: 07-26-2024 Recommendation to continue with treatment [facility] Start: 07-26-2024 Referral for physica l therapy [facility] Start: 07-26-2024 Referral to occupati onal therapist [facility] Start: 07-26-2024 Referral to service [facility] Start: 07-26-[address] [facility] Start: 07-26-2024 Vital signs measurements [facility] Start: 07-26-[address] [facility] Start: 07-26-2024 Continuous positive airway pressure ventilation treatment [facility] Start: 07-26-2024 Inhalation therapy procedure [facility] Start: 07-25-2024 [facility] Start: 07-25-2024 End: 07-25-2024 Following clinical pathway protocol [facility] Start: 07-25-2024 Assessment of risk o f venous thromboembolism [facility] Start: 07-25-[address] [facility] Start: 07-25-2024 Insertion of cathete r into peripheral vein [facility] Start: 07-25-2024 Oxygen therapy [facility] Start: 07-25-2024 Providing care accor ding to standard [facility] Start: 07-25-2024 Provision of activit y privileges [facility] Start: 07-25-2024 Referral for physica l therapy [facility] Start: 07-25-2024 Referral to occupati onal therapist [facility] Start: 07-25-2024 Referral to service [facility] Start: 07-25-2024 [facility] Start: 07-25-2024 Hospital admission, emergency, from emergency room, medical nature [facility] Start: 07-25-2024 Plain X-ray of femur Femur Min 2 Vie ws [facility] Start: 07-25-2024 End: 07-25-2024 [facility] Start: 07-25-2024 Verification routine [facility] Start: 07-25-2024 Admission procedure [facility] Start: 07-25-2024 [facility] Start: 07-08-2023 DTaP/Tdap/Td Vaccine s (2 - Td or Tdap) DTaP/Tdap/Td Vaccines (2 - Td or Tdap) [facility] Start: 05-30-2023 Creatinine measurement Creatinine Le tiffany [facility] Start: 05-30-2023 Potassium measurement Potassium Leve l [facility] Start: 05-10-2023 Screening for osteoporosis Bone Density Scan [facility] Start: 04-17-2023 Annual Wellness Visi t (AWV) Annual Wellness Visit (AWV) [facility] Start: 04-17-2023 Medicare Annual Well ness Visit Medicare Annual Wellness Visit (AWV) [facility] Start: 04-09-2023 End: 10-08-2023 CBC W Auto Differential panel - Blood CBC and Auto Differential Lab Routine Anemia in other chronic diseases classified elsewhere Expected: 04/09/2023 (Approximate), Expires: 10/08/2023 [facility] Service Area Work Phone: Comment on above: Expected: 04/09/2023 (Approximate), Expires: 10/08/2023 Start: 04-09-2023 End: 10-08-2023 Comprehensive metabolic 2000 panel - Serum or Plasma Comprehensive Metabolic Panel Lab Routine Stage 3a chronic kidney disease (CMS/HCC) Anemia in other chronic diseases classified elsewhere Expected: 04/09/2023 (Approximate), Expires: 10/08/2023 [facility] Work Phone: Comment on above: Expected: 04/09/2023 (Approximate), Expires: 10/08/2023 Start: 04-09-2023 End: 10-08-2023 Ferritin [Mass/volume] in Serum or Plasma Ferritin Lab Routine Anemia in other chronic diseases classified elsewhere Expected: 04/09/2023 (Approximate), Expires: 10/08/2023 [facility] Work Phone: Comment on above: Expected: 04/09/2023 (Approximate), Expires: 10/08/2023 Start: 04-09-2023 End: 10-08-2023 Iron and Iron binding capacity panel - Serum or Plasma Iron and TIBC Lab Routine Anemia in other chronic diseases classified elsewhere Expected: 04/09/2023 (Approximate), Expires: 10/08/2023 [facility] Work Phone: Comment on above: Expected: 04/09/2023 (Approximate), Expires: 10/08/2023 Start: 04-09-2023 End: 04-09-2023 Patient encounter procedure 04/09/2023 1:30 PM EST Office Visit [facility] [address] [place] [address] Christ Gardiner DO [address] [facility], [address] [place] [id number] [facility] Start: 03-18-2023 FUV, Provider: Apple Beth, Status: Pen, Time: 1:00 PM FUV, Provider: Apple Beth, Status: Pen, Time: 1:00 PM QX-Xpadtmrmxh-Horb na [address] [place] Work Phone: Start: 03-12-2023 ECHO, Provider: MEDI NA HHVI,MG CARD, Status: Pen, Time: 1:00 PM ECHO, Provider: STANFORD HHVI,MG CARD, Status: Pen, Time: 1:00 PM TR-Ouunkolvnc-Komx na [address] [place] Work Phone: Start: 03-12-[address] [facility] Start: 12-02-2022 Acid Fast Bacilli Culture Acid Fast Bacilli Culture [facility] Start: 12-02-2022 Acid Fast Bacilli Smear Acid F ast Bacilli Smear [facility] Start: 11-28-2022 Acid Fast Bacilli Culture Acid Fast Bacilli Culture [facility] Start: 11-28-2022 Acid Fast Bacilli Smear Acid F ast Bacilli Smear [facility] Start: 11-06-2022 Oxygen therapy [facility] Start: 11-06-2022 [facility] Start: 11-06-2022 Bacteria identified in Urine by Culture Urine Culture [facility] Start: 11-06-2022 [facility] Start: 11-02-2022 Patient discharge [facility] Start: 11-01-2022 Brain without Contrast Brain without Contrast [facility] Start: 11-01-2022 MR Brain WO contrast [facility] Start: 10-31-2022 Care planning and pr oblem solving actions [facility] Start: 10-31-2022 Brain/Head without Contrast Brain/Head without Contrast [facility] Start: 10-31-2022 CT Unspecified body region WO contrast [facility] Start: 10-30-2022 Bleeding precautions [facility] Start: 10-30-[address] [facility] Start: 10-30-2022 Oxygen therapy [facility] Start: 10-30-2022 End: 10-30-2022 [facility] Start: 10-30-2022 Application of intermittent pneumatic compression device [facility] Start: 10-30-2022 Assessment of risk o f venous thromboembolism [facility] Start: 10-30-2022 Continuous pulse oximetry [facility] Start: 10-30-2022 Fall prevention [facility] Start: 10-30-2022 Insertion of cathete r into peripheral vein [facility] Start: 10-30-2022 Maintenance therapy [facility] Start: 10-30-2022 Patient referral to dietitian [facility] Start: 10-30-2022 Providing care accor ding to standard [facility] Start: 10-30-2022 Referral to occupati onal therapist [facility] Start: 10-30-2022 End: 10-30-2022 Referral to service [facility] Start: 10-30-2022 Speech therapy assessment [facility] Start: 10-30-2022 Vital signs measurements [facility] Start: 10-30-2022 Verification routine [facility] Start: 10-30-2022 Admission procedure [facility] Start: 10-30-2022 Following clinical pathway protocol [facility] Start: 10-30-2022 Bleeding precautions [facility] Start: 10-30-[address] [facility] Start: 10-30-2022 Oxygen therapy [facility] Start: 10-30-2022 Plain chest X-ray Chest 1 View [facility] Start: 10-30-2022 [facility] Start: 10-16-2022 Creatinine measurement Creatinine Le tiffany [facility] Start: 10-16-2022 Potassium measurement Potassium Leve l [facility] Start: 10-16-2022 End: 10-16-2022 Patient encounter procedure 10/16/2022 1:00 PM EDT Office Visit [facility] [address] [place] [address] Christ Gardiner DO [address] [facility], [address] [place] [address] [facility] Start: 10-10-2022 Influenza vaccination Influenza Vacc ine (#1) [facility] Start: 09-11-2022 FUV, Provider: Apple Beth, Status: Pen, Time: 1:00 PM FUV, Provider: Apple Beth, Status: Pen, Time: 1:00 PM KG-Ieqmyxalsc-[address] [place] Work Phone: Start: 09-08-2022 FUV, Provider: Apple Beth, Status: Pen, Time: 11:30 AM FUV, Provider: Apple Beth, Status: Pen, Time: 11:30 AM IY-Qqrlujfepp-Ampa a Work Phone: Start: 06-30-2022 End: 06-20-2023 XR Chest 2 Views XR chest 2 views Imaging Routine Pneumonia of right lower lobe due to infectious organism Expected: 06/30/2022 (Approximate), Expires: 06/20/2023 [facility] Service Area Work Phone: Comment on above: Expected: 06/30/2022 (Approximate), Expires: 06/20/2023 Start: 06-19-2022 End: 06-19-2022 Patient encounter procedure 06/19/2022 10:40 AM EDT Office Visit [facility] [address] [place] [phone] Christ Gardiner DO [address] [facility], [address] [place] [address] [facility] Start: 06-10-2022 End: 06-10-2022 Patient encounter procedure 06/10/2022 1:30 PM EDT Office Visit [facility] [address] [facility] [address] [place] [address] Christ Gardiner, DO [address] [facility], [address] [place], [place] [id number] [facility] Start: 04-15-2022 Patient encounter procedure MCRANNUAL, Provider: Christ Gardiner, Status: Pen, Time: 2:00 PM [facility] Work Phone: Start: 04-15-2022 End: 04-16-2023 Basic metabolic 2000 panel - Serum or Plasma Basic Metabolic Panel Lab Routine Benign essential hypertension Coronary artery disease without angina pectoris, unspecified vessel or lesion type, unspecified whether holy cross or transplanted heart Expected: 04/15/2022 (Approximate), Expires: 04/16/2023 [facility] Work Phone: Comment on above: Expected: 04/15/2022 (Approximate), Expires: 04/16/2023 Start: 04-15-2022 End: 04-16-2023 CBC panel - Blood by Automated count CBC Lab Routine Benign essential hypertension Coronary artery disease without angina pectoris, unspecified vessel or lesion type, unspecified whether holy cross or transplanted heart Expected: 04/15/2022 (Approximate), Expires: 04/16/2023 [facility] Work Phone: Comment on above: Expected: 04/15/2022 (Approximate), Expires: 04/16/2023 Start: 04-15-2022 End: 04-16-2023 DXA Skeletal system Views for bone density XR DEXA bone density Imaging Routine Screening for osteoporosis Postmenopausal estrogen deficiency Expected: 04/15/2022, Expires: 04/16/2023 [facility] Service Area Work Phone: Comment on above: Expected: 04/15/2022 , Expires: 04/16/2023 Start: 04-15-2022 End: 04-16-2023 Lipid 1996 panel - Serum or Plasma Lipid Panel Lab Routine Coronary artery disease without angina pectoris, unspecified vessel or lesion type, unspecified whether holy cross or transplanted heart Expected: 04/15/2022 (Approximate), Expires: 04/16/2023 [facility] Work Phone: Comment on above: Expected: 04/15/2022 (Approximate), Expires: 04/16/2023 Start: 04-15-2022 End: 04-16-2023 Magnesium [Mass/volume] in Serum or Plasma Magnesium Lab Routine Benign essential hypertension Expected: 04/15/2022 (Approximate), Expires: 04/16/2023 [facility] Work Phone: Comment on above: Expected: 04/15/2022 (Approximate), Expires: 04/16/2023 Start: 03-22-2022 COVID-19 Vaccine (6 - Moderna series) COVID-19 Vaccine (6 - Moderna series) [facility] Start: 03-12-2022 CAROTID, Provider: [facility], Status: Pen, Time: 2:00 PM CAROTID, Provider: [facility], Status: Pen, Time: 2:00 PM SW-Kvhpltqbdy-Vnab na [address] [place] Work Phone: Start: 03-12-2022 ECHO, Provider: MEDI NA [facility], Status: Pen, Time: 1:00 PM ECHO, Provider: [place] [facility], Status: Pen, Time: 1:00 PM PD-Limxiagenw-Muoa na [address] [place] Work Phone: Start: 03-12-2022 FUV, Provider: Apple Beth, Status: Pen, Time: 11:30 AM FUV, Provider: Apple Beth, Status: Pen, Time: 11:30 AM [facility] Work Phone: Start: 03-12-2022 CAROTID, Provider: [facility], Status: Pen, Time: 10:00 AM CAROTID, Provider: [facility], Status: Pen, Time: 10:00 AM [facility] Work Phone: Start: 03-12-2022 ECHO, Provider: MED[facility], Status: Pen, Time: 9:00 AM ECHO, Provider: [place] [facility], Status: Pen, Time: 9:00 AM [facility] Work Phone: Start: 10-21-2021 FUV, Provider: Christ Gardiner, Status: Pen, Time: 2:00 PM FUV, Provider: Christ Gardiner, Status: Pen, Time: 2:00 PM [facility] Work Phone: Start: 08-14-2021 EPV, Provider: Apple Beth, Status: Pen, Time: 1:00 PM EPV, Provider: Apple Beth, Status: Pen, Time: 1:00 PM FQ-Jrrvbhasrx-Jsfh a Work Phone: Start: 06-21-2021 Diabetes mellitus screening Diabetes Screening [facility] Start: 04-11-2021 Patient encounter procedure YP-Vlefsustxh-Dauf na Work Phone: Start: 04-05-2021 FUV, Provider: Apple Beth, Status: Pen, Time: 11:30 AM FUV, Provider: Apple Beth, Status: Pen, Time: 11:30 AM ES-Idvixryqwc-Vglb na Work Phone: Start: 04-04-2021 ECHO, Provider: MED[facility] NA [facility], Status: Pen, Time: 1:00 PM ECHO, Provider: [place] [facility], Status: Pen, Time: 1:00 PM [facility] Work Phone: Start: 03-18-2021 Patient encounter procedure MCRANNUAL, Provider: Christ Gardiner, Status: Pen, Time: 10:40 AM [facility] Work Phone: Start: 03-08-2021 FUV, Provider: Apple Beth, Status: Pen, Time: 2:30 PM FUV, Provider: Apple Beth, Status: Pen, Time: 2:30 PM [facility] Work Phone: Start: 02-25-2021 EPV, Provider: Apple Beth, Status: Pen, Time: 1:30 PM EPV, Provider: Apple Beth, Status: Pen, Time: 1:30 PM [facility] Work Phone: Start: 12-25-2020 FUV, Provider: Christ Gardiner, Status: Pen, Time: 1:50 PM FUV, Provider: Christ Gardiner, Status: Pen, Time: 1:50 PM [facility] Work Phone: Start: 10-29-2020 FUVHOSP, Provider: Christ Chamberlain, Status: Pen, Time: 7:50 AM FUVHOSP, Provider: Christ Gardiner, Status: Pen, Time: 7:50 AM [facility] Work Phone: Start: 09-10-2020 FUV, Provider: Christ Gardiner, Status: Pen, Time: 10:00 AM FUV, Provider: Christ Gardiner, Status: Pen, Time: 10:00 AM [facility] Work Phone: Start: 03-07-2020 Screening for osteoporosis Bone Density Scan [facility] Start: 12-01-2018 Culture bacterial quanttative colony count urine Cult, Urine [facility] Work Phone: Start: 07-21-2018 Zoster Vaccines (2 of 2) Zoste r Vaccines (2 of 2) [facility] Start: 08-04-2013 DTaP/Tdap/Td Vaccine s (2 - Td or Tdap) DTaP/Tdap/Td Vaccines (2 - Td or Tdap) [facility] Start: 1986 Zoster Vaccines (1 of 2) Zoste r Vaccines (1 of 2) [facility] Start: 1948 Depression Screening Depression Scre ening [facility] Start: 1935 Medicare Annual Well ness (AWV) Medicare Annual Wellness (AWV) [facility] Start: 1935 Screening for osteoporosis Bone Density Scan [facility] Start: 1935 Thyroid stimulating hormone measurement TSH Level [facility] Acid fast bacilli culture [facility] Acid fast bacilli culture [facility] Acid fast bacilli culture [facility] End: 10-10-2022 Bacteria identified in Lower respiratory specimen by Aerobe culture Respiratory culture and Stain Microbiology Routine Once (Lab) for 1 Occurrences starting 10/10/2022 until 10/10/2022 [facility] Work Phone: Comment on above: Once (Lab) for 1 Occ urrences starting 10/10/2022 until 10/10/2022 Basic metabolic 1998 panel - Serum or Plasma Basic Metabolic Panel [facility] Work Phone: Comment on above: Approx [id number] Bilirubin measuremen t, urine [facility] Hematocrit [Volume Fraction] of Blood [facility] Hemoglobin [Mass/vol ume] in Blood [facility] Hemoglobin [Presence ] in Urine [facility] Measurement of keton es in urine using dipstick [facility] Microscopic urinalysis [facility] Mycobacterium sp identified in Unspecified specimen by Organism specific culture [facility] Mycobacterium sp identified in Unspecified specimen by Organism specific culture [facility] Mycobacterium sp identified in Unspecified specimen by Organism specific culture [facility] Patient Education ED Confusion [facility] Work Phone: Patient referral [facility] Work Phone: pH of Urine [facility] Specific gravity of Urine [facility] Urine blood test [facility] Urine culture [facility] Urine dipstick for glucose [facility] Urine dipstick for leukocyte esterase [facility] Urine dipstick for nitrite [facility] Urine dipstick for protein [facility] Urine examination [facility] Urine microscopy: epithelial cells [facility] Urine Microscopy: wh ite cells [facility] Urobilinogen [Presen ce] in Urine [facility] Work Phone: NEGATED: Highlighted row has been ruled out! Planned Goals not documented [facility] Work Phone: Immunizations Immunization Date Immunization Notes Care Provider Maria D sanchez 01-25-2022 Moderna COVID-19 Biv al Booster 50 MCG/0.5ML Intramuscular Suspension Christ Gardiner Work Phone: NV-Nctwlrhinb-Prozr awn [address] [place] Work Phone: 11-23-2021 Fluzone High-Dose Quadrivalent 0.7 ML Intramuscular Suspension Prefilled Syringe Christ Gardiner Work Phone: KL-Troeowlnbz-Sugmo awn [address] [place] Work Phone: 11-23-2021 influenza virus vaccine, unspecified formulation Christ Gardiner DO Work Phone: [facility] Work Phone: 05-31-2021 Moderna COVID-19 Vaccine 100 MCG/0.5ML Intramuscular Suspension Christ Gardiner Work Phone: [facility] 12-25-2020 Fluzone High-Dose Quadrivalent 0.7 ML Intramuscular Suspension Prefilled Syringe; Translations: [Fluzone High-Dose Quadrivalent 0.7 ML Intramuscular Suspension Prefilled Syringe] Christ Gardiner Work Phone: [facility] Work Phone: Comment on above: Series: 12-25-2020 influenza, seasonal, injectable Christ Gardiner DO Work Phone: [facility] Work Phone: 12-16-2020 Moderna COVID-19 Vaccine 100 MCG/0.5ML Intramuscular Suspension Christ Gardiner Work Phone: [facility] 07-30-2020 Moderna SARS-CoV-2 Vaccination Christ Gardiner DO Work Phone: [facility] Work Phone: 04-25-2020 Moderna COVID-19 Vaccine 100 MCG/0.5ML Intramuscular Suspension Christ Gardnier Work Phone: [facility] Work Phone: 2020 Moderna COVID-19 Vaccine 100 MCG/0.5ML Intramuscular Suspension Christ Gardiner Work Phone: [facility] 10-27-2019 Fluzone High-Dose Quadrivalent 0.7 ML Intramuscular Suspension Prefilled Syringe Christ Gardiner Work Phone: [facility] Work Phone: 10-11-2019 influenza, high dose seasonal, preservative-free Christ Gardiner [facility] Work Phone: Comment on above: Series: 11-30-2018 influenza, high dose seasonal, preservative-free; Translations: [Fluzone High-Dose 0.5 ML Intramuscular Suspension Prefilled Syringe] [facility] Work Phone: Comment on above: Series: 05-26-2018 zoster vaccine recombinant; Translations: [Shingrix 50 MCG/0.5ML Intramuscular Suspension Reconstituted] [facility] Work Phone: 11-06-2017 influenza, injectabl e, quadrivalent, contains preservative [facility] Work Phone: Comment on above: Series: 10-12-2017 influenza, high dose seasonal, preservative-free; Translations: [Influenza, high dose seasonal, preservative-free] [facility] Comment on above: Series: 10-12-2017 pneumococcal conjuga te vaccine, 13 valent; Translations: [Prevnar 13 Intramuscular Suspension] [facility] Comment on above: Series: 10-01-2016 influenza, injectabl e, quadrivalent, contains preservative; Translations: [Flulaval Quadrivalent Intramuscular Suspension] [facility] Work Phone: Comment on above: Series: 11-06-2015 influenza, high dose seasonal, preservative-free Christ Gardiner Work Phone: [facility] Work Phone: 10-11-2015 influenza virus vaccine, unspecified formulation Christ Gardiner [facility] Phone: [facility] Work Phone: Comment on above: Series: 10-11-2015 influenza, seasonal, injectable Benjy Cabralohar [facility] Work Phone: 11-16-2014 influenza, seasonal, injectable [facility] Work Phone: Comment on above: Series: 11-08-2013 influenza, seasonal, injectable [facility] Work Phone: Comment on above: Series: 07-07-2013 tetanus toxoid, redu florian diphtheria toxoid, and acellular pertussis vaccine, adsorbed [facility] Work Phone: Comment on above: Series: 10-12-2012 influenza, seasonal, injectable Christ Adorno Nostran Work Phone: [facility] Work Phone: Comment on above: Series: 10-12-2012 influenza, seasonal, injectable [facility] Work Phone: 10-24-2011 influenza, seasonal, injectable [facility] Work Phone: Comment on above: Series: 11-14-2008 influenza virus vaccine, unspecified formulation Christ Adorno Nostran Work Phone: [facility] Work Phone: Comment on above: Series: 11-14-2008 pneumococcal polysaccharide vaccine, 23 valent Christ Bray Van Nostran Work Phone: [facility] Work Phone: Comment on above: Series: 11-14-2008 influenza, seasonal, injectable [facility] Work Phone: 11-14-2008 pneumococcal polysaccharide vaccine, 23 valent [facility] Hugo [facility] Work Phone: Payers Date Payer Category Payer Unknown [id number] 2023 Self-pay 2023 Unknown [id number] 2023 Unknown [id number] 2008 Unknown 2008 Unknown [id number] 2002 Medicare [id number] 2001 Medicare [id number] 2001 Medicare [id number] 1936 Unknown [id number] 2.16. 840.1.885382.3.579.2.356 1936 Unknown [id number] 2.16 840.1.621255.3.579.2.356 1936 Unknown [id number] 2.16. 840.1.309758.3.579.2.356 1936 Unknown [id number] 2.16. 840.1.563863.3.579.2.356 1936 Unknown [id number] 2.16. 840.1.125365.3.579.2.356 1936 Unknown [id number] 2.16. 840.1.532277.3.579.2.356 1936 Unknown [id number] 2.16. 840.1.070668.3.579.2.356 1936 Unknown [id number] 2.16. 840.1.271437.3.579.2.356 1936 Unknown [id number] 2.16. 840.1.551410.3.579.2.356 1936 Unknown [id number] 2.16. 840.1.608640.3.579.2.356 1936 Unknown [id number] 2.16. 840.1.947021.3.579.2.356 1936 Unknown [id number] 2.16. 840.1.435602.3.579.2.356 1936 Unknown [id number] 2.16. 840.1.064995.3.579.2.356 1936 Unknown [id number] 2.16. 840.1.286920.3.579.2.356 1936 Unknown [id number] 2.16.840 .1.088136.3.579.2.1245 1936 Unknown [id number] 2.16.8 40.1.483194.3.579.2.1046 1936 Unknown [id number] 2.16. 840.1.489938.3.579.2.356 1936 Unknown [id number] 2.16. 840.1.324596.3.579.2.356 1936 Unknown [id number] 2.16. 840.1.810536.3.579.2.356 1936 Unknown [id number] 2.16. 840.1.747200.3.579.2.356 1936 Unknown [id number] 2.16. 840.1.193400.3.579.2.356 1936 Unknown [id number] 2.16. 840.1.513887.3.579.2.356 1936 Unknown [id number] 2.16. 840.1.305793.3.579.2.356 1936 Unknown [id number] 2.16.8 40.1.932050.3.579.2.1244 1936 Unknown [id number] 2.16.84 0.1.701622.3.579.2.1244 1936 Unknown [id number] 2.16.84 0.1.288171.3.579.2.1244 1936 Unknown [id number] 2.16.84 0.1.721122.3.579.2.1244 1936 Unknown [id number] 2.16.840 .1.423040.3.579.2.1244 Unknown [id number] 2.16.8 40.1.806143.3.579.2.243 Unknown [id number] Unknown [id number] 2.16.8 40.1.978071.3.579.2.462 Unknown [id number] 2.16.8 40.1.192450.3.579.2.462 Unknown [id number] 2.16.8 40.1.954507.3.579.2.462 Unknown [id number] 2.16.8 40.1.179164.3.579.2.462 Unknown [id number] 2.16.8 40.1.875812.3.579.2.462 Unknown [id number] 2.16.8 40.1.719710.3.579.2.462 Unknown [id number] 2.16.8 40.1.920468.3.579.2.462 Unknown [id number] 2.16.8 40.1.028123.3.579.2.462 Unknown [id number] 2.16.8 40.1.132222.3.579.2.462 Unknown [id number] 2.16.8 40.1.997549.3.579.2.462 Unknown [id number] 2.16.8 40.1.898096.3.579.2.462 Unknown [id number] 2.16.8 40.1.017783.3.579.2.462 Unknown [id number] 2.16.8 40.1.511819.3.579.2.462 Unknown [id number] 2.16.8 40.1.354028.3.579.2.462 Unknown [id number] 2.16.8 40.1.374034.3.579.2.462 Unknown [id number] 2.16.8 40.1.490792.3.579.2.462 Unknown [id number] 2.16.8 40.1.448495.3.579.2.462 Unknown [id number] 2.16.8 40.1.163488.3.579.2.462 Unknown [id number] 2.16.8 40.1.226141.3.579.2.462 Unknown [id number] 2.16.8 40.1.348860.3.579.2.462 Unknown [id number] 2.16.8 40.1.471937.3.579.2.462 Unknown [id number] 2.16.8 40.1.615303.3.579.2.462 Unknown [id number] 2.16.8 40.1.371372.3.579.2.462 Unknown [id number] 2.16.8 40.1.270427.3.579.2.462 Unknown [id number] 2.16.8 40.1.816986.3.579.2.462 Unknown [id number] 2.16.8 40.1.970497.3.579.2.462 Unknown [id number] 2.16.8 40.1.979568.3.579.2.462 Unknown [id number] 2.16.8 40.1.190775.3.579.2.462 Unknown [id number] 2.16.8 40.1.970312.3.579.2.462 Unknown [id number] 2.16.8 40.1.248425.3.579.2.462 Unknown [id number] 2.16.8 40.1.163476.3.579.2.462 Unknown [id number] 2.16.8 40.1.563499.3.579.2.462 Unknown [id number] 2.16.8 40.1.034101.3.579.2.462 Unknown [id number] 2.16.8 40.1.319867.3.579.2.462 Unknown [id number] 2.16.8 40.1.379591.3.579.2.462 Unknown [id number] 2.16.8 40.1.270057.3.579.2.462 Unknown [id number] 2.16.8 40.1.482814.3.579.2.462 Unknown [id number] 2.16.8 40.1.526495.3.579.2.462 Unknown [id number] 2.16.8 40.1.495289.3.579.2.462 Unknown [id number] 2.16.8 40.1.397072.3.579.2.462 Social History Date Type Detail Facility - Never smoker [facility] Work Phone: Start: 04-15-2022 End: 05-30-2022 Caffeine Use Caffeine Use [facility] Start: 04-15-2022 End: 08-02-2024 Tobacco smoking status NHIS Never smoked tobacco [facility] Work Phone: Start: 04-15-2022 Tobacco use and exposure Smoke less tobacco non-user [facility] Work Phone: Start: 04-15-2022 End: 05-30-2022 Alcohol intake Ex-drinker (finding) [facility] Work Phone: Start: 04-15-2022 End: 05-30-2022 Tobacco use panel [facility] Start: 1935 Sex Assigned At Not on file [facility] Work Phone: Start: 04-05-2022 End: 10-10-2022 Exposure to SARS-CoV-2 (event) Not sure [facility] Start: 10-14-2022 Alcohol intake Lifetime non-drinker (finding) [facility] In the past 12 month s, has lack of transportation kept you from medical appointments or from getting medications? No [facility] In the past 12 month s, was there a time when you were not able to pay the mortgage or rent on time? No [facility] Start: 10-30-2022 End: 11-06-2022 Tobacco smoking status OHIS Unknown if ever smoked [facility] Start: 1935 Sex Assigned At Female W [facility] Start: 11-02-[address] [facility] Start: 05-12-2024 Sex Female (finding) [facility] Start: 07-25-2024 Tobacco smoking stat us OHIS Ex-smoker (finding) [facility] NEGATED: Highlighted rowStart: NINF History of tobacco use Passive smoker [facility] Work Phone: NEGATED: Highlighted row Not [facility] Medical Equipment Procedure Code Equipment Code Equipment Original Text Equipment Identifier Dates Insertion, intramedullary kaleb, femur, using titanium trochanteric fixation nail syste Locking screw for IM nail [id number] FDA Start: 07-26-2024 Insertion, intramedullary kaleb, femur, using titanium trochanteric fixation nail syste Femur nail, sterile [id number] FDA Start: 07-26-2024 Insertion, intramedullary kaleb, femur, using titanium trochanteric fixation nail syste ([id number]) Spiral blade ()[id number] FDA Start: 07-26-2024 Insertion, intramedullary kaleb, femur, [...] 08-05-2024 Functional status Chair;Bedside Commode;Back to bed [facility] Work Phone: 07-28-[address] [facility] Work Phone: 11-02-[address] [facility] Work Phone: NEGATED: Highlighted row Functional performance Functional status health issues are not documented Disease [facility] Work Phone: Mental Status Date Assessment Result Facility 08-05-2024 Cognitive function Touch/Shaking [facility] Work Phone: 08-04-2024 Cognitive function Appropriate;C ooperati ve;Talkative [facility] Work Phone: 08-02-2024 Cognitive function Voice/Name [facility] Work Phone: 07-28-2024 Cognitive function Voice/Name [facility] Work Phone: 11-06-2022 Cognitive function Appropriate;C ooperati ve [facility] Work Phone: 11-02-2022 Cognitive function Voice/Name [facility] Work Phone: 10-30-2022 Cognitive function Voice/Name [facility] Work Phone: NEGATED: Highlighted row Cognitive function [Interpretation] Cognitive status health issues are not documented Disease [facility] Work Phone: Clinical Notes 06-09-2013 to 08-05-2024 Note Date & Type Note Facility 08-05-2024 Consult note [facility] 08-05-2024 Hospital Discharg e instructions Additional Instructions Date of Discharge: 08/05/24 [facility] Work Phone: 08-05-2024 Discharge summary Note Date/Time August 05, 2024 11:56am [facility] Medical Records Department [address] [place] [address] Discharge Summary 08/05/24 1149 MR#: [id number] Acct: [id number] Name: KATHERINE JUDGE Rep #:[id number] : 1935 89 From: Neymar Herrera PCP: Dr. Kam Ocampo Sr., Status:A DM IN [facility] [facility] [id number] Providers Date of Admission: 08/02/24 Date of Discharge: 08/05/24 Primary Care Physician: Dr. Kam Ocampo Sr., DO Consultations 08/02/24 18:50 Consult: Gastroenterology Routine Consulting Provider: [facility] Reason for Consult: GI bleed EMERGENT Consult: No MD Notified: Yes Date Notified: 08/03/24 Time Notified: 06:09 Method of Notification: Text Reason For Visit: ANEMIA, GI BLEED Diagnosis Discharge Diagnosis (1) GI bleed: Status: Acute Code(s): K92.2 - Gastrointestinal hemorrhage, unspecified (2) Anemia: Status: Acute Code(s): D64.9 - Anemia, unspecified Plan Patient is an 89-year-old female who presented to [facility] ED on 08/02/2024 with altered mentation and [...] nail placement on 07/26. Patient discharged to [facility] and suspect she will need SNF [...] CCA, DNI Expected disposition: Likely back to halfway, TBD Microbiology Past 72 Hours 08/02/24 14:55 [...] Sr., ; Dr. Neymar Cunningham MD~ Signed [facility] Work Phone: 1(569) 527-679806-27-2025 Discharge summary Author Neymar Cunningham [facility] Note Date/Time August 05, 2024 11:4 7am [facility] Medical Records Department [address] [place] [address] Transfer to [facility] MR#: [id number] Acct: [id number] Name: KATHERINE JUDGE Rep #:[id number] : 1935 89 From: Neymar Herrera PCP: Dr. Kam Ocampo Sr., DO Status:A DM IN Certification of patient admission REQUIRED AT TIME OF ADMISSION. I CERTIFY THAT POST-HOSPITAL F SERVICES ARE REQUIRED TO BE GIVEN ON AN IN-PATIENT BASIS BECAUSE OF THE ABOVE NAMED PATIENT'S NEED FOR ASSISTED CARE ON A CONTINUING BASIS FOR THE CONDITION(S) FOR WHICH HE/SHE WAS RECEIVING IN-PATIENT HOSPITAL SERVICES PRIOR TO HIS/HER TRANSFER TO THE [facility]. 08/05/24 1147<Electronically signed by Neymar Cunningham [...] is an 89-year-old female who presented to [facility] ED on 08/02/2024 with altered mentation and [...] nail placement on 07/26. Patient discharged to [facility] and suspect she will need SNF [...] CCA, DNI Expected disposition: Likely back to halfway, TBD Microbiology Past 72 Hours 08/02/24 14:55 [...] Ocampo Sr., ; Dr. Janine Harrison MD~ [facility] Work Phone: 1(649) 237-323606-27-2025 Discharge summary [facility] Medical Records Department [address] [place] [address] Discharge Summary 08/05/24 1149 MR#: [id number] Acct: [id number] Name: KATHERINE JUDGE Wilber Rep #:[id number] : 1935 89 From: Neymar Herrera PCP: Dr. Kam Ocampo Sr., DO Status:A DM IN [id number] Prov[facility] Date of Admission: 08/02/24 Date of Discharge: 08/05/24 Primary Care Physician: Dr. Kam Ocampo Sr., DO Consultations 08/02/24 18:50 Consult: Gastroenterology Routine Consulting Provider: [facility] Reason for Consult: GI bleed EMERGENT Consult: No MD Notified: Yes Date Notified: 08/03/24 Time Notified: 06:09 Method of Notification: Text Reason For Visit: ANEMIA, GI BLEED Diagnosis Discharge Diagnosis (1) GI bleed: Status: Acute Code(s): K92.2 - Gastrointestinal hemorrhage, unspecified (2) Anemia: Status: Acute Code(s): D64.9 - Anemia, unspecified Plan Patient is an 89-year-old female who presented to [facility] ED on 08/02/2024 with altered mentation and [...] nail placement on 07/26. Patient discharged to [facility] home and suspect she will need [...] CCA, DNI Expected disposition: Likely back to halfway, TBD Microbiology Past 72 Hours 08/02/24 14:55 [...] Sr., DO; Dr. Neymar Cunningham MD~ Signed [facility]06-27-2025 [facility]06-27-2025 Discharge summary [facility] Medical Records Department [address] [place] [address] Transfer to [facility] MR#: [id number] Acct: [id number] Name: KATHERINE JUDGE Rep #:[id number] : 1935 89 From: Neymar Herrera PCP: Dr. Kam Ocampo Sr., DO Status:A DM IN Certification of patient admission REQUIRED AT TIME OF ADMISSION. I CERTIFY THAT POST-HOSPITAL ECF SERVICES ARE REQUIRED TO BE GIVEN ON AN IN-PATIENT BASIS BECAUSE OF THE ABOVE NAMED PATIENT'S NEED FOR ASSISTED CARE ON A CONTINUING BASIS FOR THE [...] is an 89-year-old female who presented to [facility] ED on 08/02/2024 with altered mentation and [...] nail placement on 07/26. Patient discharged to [facility] and suspect she will need SNF [...] CCA, DNI Expected disposition: Likely back to halfway, TBD Microbiology Past 72 Hours 08/02/24 14:55 [...] Ocampo Sr., DO; Dr. Janine Harrison MD~ [facility]06-27-2025 Progress note Author Yue Velásquez [facility] Note Date/Time August 04, 2024 10:3 1pm [facility] Medical Records Department [address] [place] [address] Progress Note - Hospitalist 08/04/240 MR#: [id number] Acct: [id number] Name: KATHERINE JUDGE Rep #:[id number] : 1935 89 From: Yue Velásquez MD PCP: Dr. Kam Ocampo Sr., DO Status:A DM IN Location: MS3 NE463-6 Hospitalist Note Patient pulled out her IV access. Currently on regular diet. RN notes planned D/C likely in AM. Will change IV PPI to oral regimen. 08/04/242230 <Electronically signed by Yue Velásquez MD> Cosigner Signature (if applicable): CC: ~ Signed [facility] Work Phone: 1(535) 252-619206-26-2025 Progress note [facility] Medical Records Department [address] [place] [address] Progress Note - Hospitalist 08/04/242229 MR#: [id number] Acct: [id number] Name: KATHERINE JUDGE Wilber Rep #:[id number] : 1935 89 From: Yue Velásquez MD PCP: Dr. Kam Ocampo Sr., DO Status:A DM IN Location: [place] [address] Hospitalist Note Patient pulled out her IV access. Currently on regular diet. RN notes planned D/C likely in AM. Will change IV PPI to oral regimen. 08/04/242230 Cosigner Signature (if applicable): CC: ~ Signed [facility]06-26-2025 Consult note Author Nilsa [facility] Note Date/Time August 05, 2024 4:05 pm [facility] Medical Records Department [address] [place] [address] Anesthesia Postop Eval II 08/04/24 1802 MR#: [id number] Acct: [id number] Name: KATHERINE JUDGE Wilber Rep #:[id number] : 1935 89 From: Nilsa Alexandra CRNA PCP: Dr. Kam Ocampo Sr., DO Status:A DM IN Y Race: C Location: [place] [address] Anesthesia Postop Eval I Sum Postop Eval Completion status Anesthesia document: Postop Eval 1 completed: Yes Anesthesia Postop Eval I Summary Anesthesia Postop Eval I Summary: Anesthesia Postop Eval I: Assessment Summary Airway patent Yes 08/04/24 16:41 CONSERVATION SCIENCE TEACHER.MDOT Spontaneous unlabored Yes 08/04/24 16:41 CONSERVATION SCIENCE TEACHER.MDMICHA respirations Mental status Awake,Calm 08/04/24 16:41 CONSERVATION SCIENCE TEACHER.MDOT nausea No 08/04/24 16:41 CONSERVATION SCIENCE TEACHER.MDOT Vomiting No 08/04/24 16:41 CONSERVATION SCIENCE TEACHER.MDOT Anesthesia Postop Eval I: Fluid Summary Crystalloid volume administer 100 08/04/24 16:41 CONSERVATION SCIENCE TEACHER.MDOT (ml) Colloids volume administered ( ml) Blood Product volume administered (ml) Total IV fluid infused 100 08/04/24 16:41 CONSERVATION SCIENCE TEACHER.ERICKA Anesthesia Postop Eval I: Summary Notes Anesthesia Complication No 08/04/24 16:41 CONSERVATION SCIENCE TEACHER.ERICKA Anesthesia Complication Comment: Post-operative progress note Anesthesia: Postop Eval II Evaluation Mental status: Awake Pain Level: 0 nausea: No Vomiting: No 08/04/24 180 <Electronically signed by Nilsa gaona CRNA> Date _ Nilsa Alexandra CRNA Cosigner Signature: Date CC: ~ Signed [facility] Work Phone: 1(411) 768-423906-26-2025 Consult note Author Jose Lairdgerman hospitaltimi [facility] Note Date/Time August 04, 2024 4:41 pm [facility] Medical Records Department [address] [place] [address] Anesthesia Postop Eval I 08/04/24 1641 MR#: [id number] Acct: [id number] Name: DERICKKATHERINE Wilber Rep #:[id number] : 1935 89 From: Jose NELSON PCP: Dr. Kam Ocampo SrLeigh, DO Status:A DM IN Y Race: C Location: [address] Anesthesia: Postop Eval I Current Vital [...] CRNA Cosigner Signature: Date CC: ~ Signed [facility] Work Phone: 1([phone]) 133-256906-26-2025 Progress note Author Neymar Cunningham [facility] Note Date/Time August 04, 2024 4:41 pm [facility] Medical Records Department [address] [place] [address] Progress Note - Hospitalist 08/04/24 1636 MR#: [id number] Acct: [id number] Name: KATHERINE JUDGE Rep #:[id number] : 1935 89 From: Neymar Herrera PCP: Dr. Kam Ocampo Sr., DO Status:A DM IN Location: [address] Reason for Visit Reason for Visit: [...] Minimal intrahepatic biliary ductal dilatation. Reading Location: PKD-DPFKJYIYD-T Brain CT 08/03/24 11:10 IMPRESSION: NO ACUTE INTRACRANIAL HEMORRHAGE Chronic changes. Reading Location: [facility] Pelvis CT 08/03/24 11:10 IMPRESSION: Status post right intertrochanteric fracture reduction with compression screw and kaleb fixation device. Postoperative soft tissue changes. No evidence of localized hematoma. Reading Location: DIY-VCSMFCMPE-W Physical Exam Narrative Seen and examined. Patient [...] is an 89-year-old female who presented to [facility] ED on 08/02/2024 with altered mentation and [...] nail placement on 07/26. Patient discharged to [facility] and suspect she will need SNF [...] CCA, DNI Expected disposition: Likely back to halfway, TBD Microbiology Past 72 Hours 08/02/24 14:55 [...] TSH 1.990 Charges/Coding Visit Charges Inpatient E&M: 54296 Subs Hosp L2 08/04/24 1641 <Electronically signed by Neymar Cunningham MD> Cosigner Signature (if applicable): CC: ~ Signed [facility] Work Phone: 1(249) 984-405406-26-2025 Progress note Author Nomi Kee [facility] Note Date/Time August 04, 2024 4:13 pm [facility] Medical Records Department [address] [place] [address] Progress Note 08/04/24 1611 MR#: [id number] Acct: [id number] Name: KATHERINE JUDGE Wilber Rep #:[id number] : 1935 89 From: Nomi Kee DO PCP: Dr. Kam Ocampo Sr., DO Status:A DM IN Location: [place] [address] Progress Note Patient has been n.p.o. for [...] an upper endoscopy. The patient's power of workers compensation attorney her son was explained alternatives, risk and benefits include not withstanding bleeding, infection, sepsis, perforation, need for surgery . She will have an ASA 3. Visit Charges Inpatient E&M: 08189 Subs Hosp L3 08/04/24 1613 <Electronically signed by Nomi Kee DO> Nomi Kee DO Cosigner Signature (if applicable): CC: ~ Signed [facility] Work Phone: 1(498) 166-161006-26-2025 Consult note Author Jose Krueger [facility] Note Date/Time August 04, 2024 4:01 pm [facility] Medical Records Department [address] [place] [address] Pre-Anesthesia Evaluation 08/04/24 1553 MR#: [id number] Acct: [id number] Name: KATHERINE JUDGE Rep #:[id number] : 1935 89 From: Jose NELSON PCP: Dr. 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: Anesthesia History - residential building inspector Hx Hospitalization Any Problems With Anesthesia No [...] take am of surgery PONV PONV - residential building inspector: PONV - residential building inspector Female HX of Motion Sickness HX of N/V After Surgery Non-Smoker Duration of Surgery greater than 60 minutes Number of Risk Factors PONV Score Height & Weight Height & Weight: Anesthesia: Height & Weight Height 5 ft 08/04/24 15:25 Weight: 51.7 kg 08/04/24 15:25 Body Mass Index (BMI) 22.2 08/04/24 15:25 Respiratory Assessment Respiratory Assessment - residential building inspector: Respiratory Tract Infection Hx - residential building inspector Hx Respiratory Tract Infection No 08/04/24 15:15 STOP Sleep Apnea STOP Sleep Apnea - residential building inspector: STOP Sleep Apnea - residential building inspector Hx Hypertension Yes 08/03/24 12:16 Hx Sleep [...] Tobacco Use History Tobacco Use History - residential building inspector: Tobacco Use History - residential building inspector Tobacco Use Non-smoker 11/02/22 12:18 Smoking Status Never smoker 08/02/24 13:06 Hx Tobacco Use No 10/30/22 22:55 Years Smoking Packs Smoked per Day Smoking Cessation Date was within the last 15 years Hx Smoking Cessation Date Hx Smoking Cessation Counseling Hematologic Medial History Hematologic Hx - residential building inspector: Hematologic Medical Hx - 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 Specify any problems Hx of Preganancy in last 3 Months Nurse Filling Out Transfusion & Questions: Date: Time: Patient unable to answer at this time (ie. 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 Procedure Code(s): --- Professional --- 19994, Small intestinal endoscopy, enteroscopy beyond second portion of duodenum, not including ileum; diagnostic, including collection of specimen(s) by brushing or washing, when performed (separate procedure) CPT copyright 2021 [employer]. All rights reserved. The codes documented in this report are preliminary and upon supervisor claims review may be revised to meet current compliance requirements. Nomi Kee DO 08/04/2024 4:42:45 PM This report has been signed electronically. Number of Addenda: 0 Note Initiated On: 08/04/2024 4:10 PM 08/04/24 1642 Date _ Nomi Kee DO Cosigner Signature: Date (if indicated) CC: Dr. Kam Ocampo Sr., DO; Nomi Kee DO ~ Date Dictated: 08/04/24 1610 Date Transcribed: Shaper Operator: RF Signed [facility]06-26-2025 Consult note [facility] Medical Records Department [address] [facility] [place] [address] Anesthesia Postop Eval I 08/04/24 1641 MR#: [id number] Acct: [id number] Name: KATHERINE JUDGE Rep #:[id number] : 1935 89 From: Jose Espinoza RNA PCP: Dr. Kam Ocampo Sr., DO Status:A DM IN Y Race: C Location: [place] [address] Anesthesia: Postop Eval I Current Vital Signs [...] Postop Eval 1 completed: Yes 08/04/24 1641 CONSERVATION SCIENCE TEACHER> Date _ Jose Krueger CONSERVATION SCIENCE TEACHER Cosigner Signature: Date CC: ~ Signed [facility]06-26-2025 Progress note [facility] Medical Records Department [address] [place] [address] Progress Note - Hospitalist 08/04/24 1636 MR#: [id number] Acct: [id number] Name: KATHERINE JUDGE Rep #:[id number] : 1935 89 From: Neymar Herrera PCP: Dr. Kam Ocampo Sr., DO Status:A DM IN Location: [place] [address]-1 Reason for Visit Reason for Visit: Diagnoses [...] Minimal intrahepatic biliary ductal dilatation. Reading Location: ZFU-FIGHCCHCG-V Brain CT 08/03/24 11:10 IMPRESSION: NO ACUTE [...] is an 89-year-old female who presented to [facility] ED on 08/02/2024 with altered mentation and [...] nail placement on 07/26. Patient discharged to [facility] and suspect she will need SNF [...] CCA, DNI Expected disposition: Likely back to halfway, TBD Microbiology Past 72 Hours 08/02/24 14:55 [...] TSH 1.990 Charges/Coding Visit Charges Inpatient E&M: 85771 Subs Hosp L2 08/04/24 1641 Cosigner Signature (if applicable): CC: ~ Signed [facility]06-26-2025 Progress note [facility] Medical Records Department [address] [place] [address] Progress Note 08/04/24 1611 MR#: [id number] Acct: [id number] Name: KATHERINE JUDGE Rep #:[id number] : 1935 89 From: Nomi Friend DO PCP: Dr. Kam Ocampo Sr., DO Status:A DM IN Location: [place] [address] Progress Note Patient has been n.p.o. for [...] an upper endoscopy. The patient's power of workers compensation attorney her son was explained alternatives, risk and benefits include not withstanding bleeding, infection, sepsis, perforation, need for surgery . She will have an ASA 3. Visit Charges Inpatient E&M: 39673 Subs Hosp L3 08/04/24 1613 Nomi Friend DO Malcolmigntimi Signature (if applicable): CC: ~ Signed [facility]06-26-2025 Consult note [facility] Medical Records Department [address] [place] [address] Pre-Anesthesia Evaluation 08/04/24 1553 MR#: [id number] Acct: [id number] Name: KATHERINE JUDGE Rep #:[id number] : 1935 89 From: Jose NELSON PCP: Dr. Kam Ocampo Sr., DO Status:A DM IN Y Race: C Location: [address] ASA Classification* ASA Classification ASA Classification: [...] possible cautery Anesthesia History Anesthesia History - residential building inspector: Anesthesia History - residential building inspector Hx Hospitalization Any Problems With Anesthesia No [...] take am of surgery PONV PONV - residential building inspector: PONV - residential building inspector Female HX of Motion Sickness HX of N/V After Surgery Non-Smoker Duration of Surgery greater than 60 minutes Number of Risk Factors PONV Score Height & Weight Height & Weight: Anesthesia: Height & Weight Height 5 ft 08/04/24 15:25 Weight: 51.7 kg 08/04/24 15:25 Body Mass Index (BMI) 22.2 08/04/24 15:25 Respiratory Assessment Respiratory Assessment - residential building inspector: Respiratory Tract Infection Hx - residential building inspector Hx Respiratory Tract Infection No 08/04/24 15:15 STOP Sleep Apnea STOP Sleep Apnea - residential building inspector: STOP Sleep Apnea - residential building inspector Hx Hypertension Yes 08/03/24 12:16 Hx Sleep [...] Tobacco Use History Tobacco Use History - residential building inspector: Tobacco Use History - residential building inspector Tobacco Use Non-smoker 11/02/22 12:18 Smoking Status Never smoker 08/02/24 13:06 Hx Tobacco Use No 10/30/22 22:55 Years Smoking Packs Smoked per Day Smoking Cessation Date was within the last 15 years Hx Smoking Cessation Date Hx Smoking Cessation Counseling Hematologic Medial History Hematologic Hx - residential building inspector: Hematologic Medical Hx - 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 Specify any problems Hx of Preganancy in last 3 Months Nurse Filling Out Transfusion & Questions: Date: Time: Patient unable to answer at this time (ie. confused, unrespo /Reproduction History /Reproductive History - residential building inspector: /Reproductive Hx- residential building inspector Hx Now No 08/04/24 15:15 Gestational Age [...] mls @ 15 mls/hr 08/03/24 18:51 IV .[id number] PRN Saline Flush Sodium Chloride 250 mls @ 15 mls/hr 08/03/24 18:51 IV .[id number] PRN Additional IVPB Infusion Lactated Ringer's 1,000 [...] History (Updated 08/04/24 @ 11:26 by Steph cMcollum) TIA (transient ischemic attack) Personal history of other diseases of digestive system Noninfective gastroenteritis and colitis, unspecified Essential hypertension Diaphragmatic hernia without obstruction or gangrene Constipation, unspecified 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 Other specified [...] ROM Resp normal respiratory effort 08/04/24 1601 CONSERVATION SCIENCE TEACHER> Date _ Jose Sisiaidetimi CONSERVATION SCIENCE TEACHER Cosigner Signature: Date CC: ~ Signed [facility]06-25-2025 Progress note Author Hayden Diaz [facility] Note Date/Time August 03, 2024 5:58 pm [facility] Medical Records Department [address] [facility] [place] [address] Progress Note - Hospitalist 08/03/24 1211 MR#: [id number] Acct: [id number] Name: KATHERINE JUDGE Wilber Rep #:[id number] : 1935 89 From: Hayden malik DO PCP: Dr. Kam Ocampo Sr., DO Status:A DM IN Location: [place] [address] Reason for Visit Reason for Visit: Diagnoses [...] % (Auto) 70.8 H, Lymph % (Auto)19.7, [place] % (Auto) 7.2, Eos % (Auto) 1.4, [...] Clarity Clear, Urine pH 7.0, Ur Specific [place] 1.010, Urine Protein Negative, Urine Glucose (UA) [...] % (Auto) 66.5, Lymph % (Auto) 23.1, [place] % (Auto) 8.1, Eos % (Auto) 1.1, [...] Minimal intrahepatic biliary ductal dilatation. Reading Location: HKJ-INETIFMLG-R Brain CT 08/03/24 11:10 IMPRESSION: NO ACUTE INTRACRANIAL HEMORRHAGE Chronic changes. Reading Location: EGF-BJFATXTSJ-J Pelvis CT 08/03/24 11:10 IMPRESSION: Status post right intertrochanteric fracture reduction with compression screw and kaleb fixation device. Postoperative soft tissue changes. No evidence of localized hematoma. Reading Location: [facility] Physical Exam Const alert, no apparent distress [...] is an 89-year-old female who presented to [facility] ED on 08/02/2024 with altered mentation and [...] nail placement on 07/26. Patient discharged to [facility] and suspect she will need SNF [...] CCA, DNI Expected disposition: Likely back to halfway, TBD Total clinical time spent by myself addressing the patient's medical issues, reviewing all the data, and collaborating with patient's care team: 35 minutes. Charges/Coding Visit Charges Inpatient E&M: 70687 Subs Hosp L2 08/03/24 8923 <Electronically signed by Hayden Diaz DO> Cosigner Signature (if applicable): CC: ~ Signed [facility] Work Phone: 1(177) 514-166606-25-2025 Consult note Author Nomi Kee [facility] Note Date/Time August 03, 2024 3:59 pm [facility] Medical Records Department [address] [place] [address] Consultation - GI 08/03/24 1537 MR#: [id number] Acct: [id number] Name: KATHERINE JUDGE Rep #:[id number] : 1935 89 From: Nomi Kee DO PCP: Dr. Kam Ocampo Sr., Status:A DM IN Location: [facility] [id number] HPI Consult Data Date of Consult: 08/03/24 HPI Narrative Reason for Consultation: Anemia HPI Narrative: KATHERINE JUDGE, is a 89 F who -[id number]-xdw female with past medical history of TIA/CVA. [...] urinary bladder. Minimal intrahepatic biliary ductal dilatation. 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 Reading Location: DBW-ILRKALKRO-A Pelvis CT 08/03/24 11:10 IMPRESSION: Status post right intertrochanteric fracture reduction with compression screw and kaleb fixation device. Postoperative soft tissue changes. No evidence of localized hematoma. Reading Location: [facility] Assessment & Plan Assessment/Plan (1) Anemia: (2) [...] pursue endoscopy. Charges/Coding Visit Charges Inpatient E&M: 68962 Init Hosp L3 08/03/24 0084 <Electronically signed by Nomi Kee DO> Cosigner Signature (if applicable): CC: Dr. Kam Ocampo Sr., DO; Dr. Janine Harrison MD~ Signed [facility] Work Phone: 1(388) 865-989106-25-2025 Progress note [facility] Medical Records Department [address] [place] [address] Progress Note - Hospitalist 08/03/24 1211 MR#: [id number] Acct: [id number] Name: KATHERINE JUDGE Wilber Rep #:[id number] : 1935 89 From: Hayden malik DO PCP: Dr. Kam Ocampo Sr., Status:A DM IN Location: [place] [address] Reason for Visit Reason for Visit: Diagnoses [...] % (Auto) 70.8 H, Lymph % (Auto)19.7, [place] % (Auto) 7.2, Eos % (Auto) 1.4, [...] Clarity Clear, Urine pH 7.0, Ur Specific [place] 1.010, Urine Protein Negative, Urine Glucose (UA) [...] % (Auto) 66.5, Lymph % (Auto) 23.1, [place] % (Auto) 8.1, Eos % (Auto) 1.1, [...] Minimal intrahepatic biliary ductal dilatation. Reading Location: WGV-YKPEBHUTQ-O Brain CT 08/03/24 11:10 IMPRESSION: NO ACUTE INTRACRANIAL HEMORRHAGE Chronic changes. Reading Location: XTZ-BIIMVSZIY-U Pelvis CT 08/03/24 11:10 IMPRESSION: Status post right intertrochanteric fracture reduction with compression screw and kaleb fixation device. Postoperative soft tissue changes. No evidence of localized hematoma. Reading Location: EIZ-DTUNWOPTG-A Physical Exam Const alert, no apparent distress [...] is an 89-year-old female who presented to [facility] ED on 08/02/2024 with altered mentation and [...] nail placement on 07/26. Patient discharged to [facility] and suspect she will need SNF [...] CCA, DNI Expected disposition: Likely back to halfway, TBD Total clinical time spent by myself addressing the patient's medical issues, reviewing all the data, and collaborating with patient's care team: 35 minutes. Charges/Coding Visit Charges Inpatient E&M: 49272 Subs Hosp L2 08/03/24 4508 Cosigner Signature (if applicable): CC: ~ Signed [facility]06-25-2025 Consult note [facility] Medical Records Department [address] [place] [address] Consultation - GI 08/03/24 1537 MR#: [id number] Acct: [id number] Name: KATHERINE JUDGE Rep #:[id number] : 1935 89 From: Nomi Kee DO PCP: Dr. Kam Ocampo Sr., DO Status:A DM IN Location: [place] [address] HPI Consult Data Date of Consult: 08/03/24 HPI Narrative Reason for Consultation: Anemia HPI Narrative: KATHERINE JUDGE, is a 89 F who [id number]-[id number]-rdu female with past medical history of TIA/CVA. [...] urinary bladder. Minimal intrahepatic biliary ductal dilatation. 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 Reading Location: [id number] Pelvis CT 08/03/24 11:10 IMPRESSION: Status post right intertrochanteric fracture reduction with compression screw and kaleb fixation device. Postoperative soft tissue changes. No evidence of localized hematoma. Reading Location: [id number] Assessment & Plan Assessment/Plan (1) Anemia: (2) [...] pursue endoscopy. Charges/Coding Visit Charges Inpatient E&M: 34487 Init Hosp L3 08/03/24 7211 Cosigner Signature (if applicable): CC: Dr. Kam Ocampo Sr., DO; Dr. Janine Harrison MD~ Signed [facility]06-25-2025 Radiology Diagnostic study note [facility] Imaging Services [address] [place] [address] Brain/Head without Contrast MR#: [id number] Acct: [id number] Name: KATHERINE JUDGE Rep #: [id number] : 1935 F 89 From: Reyes Haynes MD PCP: Dr. Kam Ocampo Sr., DO Status: A DM IN Study:Brain/Head without Contrast Date of Exa m: 08/03/24 Exam# [id number] Ordering Dr: Hayden Cardenas DO PROCEDURE: BRAIN/HEAD [...] DO; Dr. Kam Ocampo Sr., DO ~ Shaper Operator: Signed [facility]06-25-2025 Radiology Diagnostic study note [facility] Imaging Services [address] [place], [place] [id number] Pelvis without IV Contrast MR#: [id number] Acct: [id number] Name: KATHERINE JUDGE Rep #: [id number] : 1935 F 89 From: Reyes Haynes MD PCP: Dr. Kam Ocampo Sr., DO Status: A DM IN Study:Pelvis without IV Contrast Date of Exam : 08/03/24 Exam# [id number] Ordering Dr: Hayden Cardenas DO PROCEDURE: PELVIS [...] DO; Dr. Kam Ocampo Sr., DO ~ Shaper Operator: Signed [facility]06-24-2025 History and physical note Author Janine Harrison [facility] Note Date/Time August 02, 2024 5:50 pm [facility] Medical Records Department [address] [place] [address] H&P Exam - Hospitalist 08/02/24 1720 MR#: [id number] Acct: [id number] Name: KATHERINE JUDGE Rep #:[id number] : 1935 89 From: Janine Harrison MD PCP: Dr. Kam Ocampo Sr., DO Status:A DM IN Location: [facility] KC380-9 HPI - General General Date of Admission: 08/02/24 Date of Service: 08/02/24 Chief Complaint: Low hgb HPI Narrative KATHERINE JUDGE, is a 89-year-old female with a history of TIA, hypertension, irondeficiency anemia, hip fracture repair last week, depression, GERD who presentedto [facility] ED 08/02/2024 with concerns for low hemoglobin. [...] she has had any surgeries or interventions. 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 Reading Location: [facility] Assessment & Plan Assessment/Plan (1) GI bleed: [...] Harrison MD Charges/Coding Visit Charges Inpatient E&M: 92037 Init Hosp L2 08/02/24 1750 <Electronically signed by Janine Harrison MD> Cosigner Signature (if applicable): CC: Dr. Kam Ocampo Sr., DO; Dr. Janine Harrison MD~ Signed [facility] Work Phone: 1(345) 930-699306-24-2025 Discharge summary Author Jamie Beltrán [facility] Note Date/Time August 02, 2024 4:32 pm [facility] Medical Records Department [address] [place] [address] Emergency Department Summary 08/02/24 MR#: [id number] Acct: [id number] Name: DERICKKATHERINE Wilber Rep #:[id number] : 1935 89 From: Jamie Beltrán DO PCP: Dr. Kam Ocampo Sr., DO Status:A DM IN Location: [place] [address] HPI History of Present Illness Chief Complaint: [...] replacement while in the hospital last time. 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 Reading Location: [id number] Discharge Plan Triage Chief Complaint: Abn Labs [...] DO [Primary Care Provider] - Print Language: Malaysian Disposition Disposition: Acute Care Hospital [facility] What to do if you have Problems For any increased pain, shortness of breath, bleeding, nausea or vomiting, chestpain, or any unexpected problems, contact your Primary Care Provider. Call [facility] ([phone]) or report to the closest Emergency Room. Call 911 if necessary. 08/02/24 1632 <Electronically signed by Jamie Beltrán DO> Cosigner Signature (if applicable): CC: Dr. Kam Ocampo Sr., ~ Signed [facility] Work Phone: 1(598) 958-109506-24-2025 History and physical note [facility] Medical Records Department [address] [place] [address] H&P Exam - Hospitalist 08/02/24 1720 MR#: [id number] Acct: [id number] Name: KATHERINE JUDGE Rep #:[id number] : 1935 89 From: Janine Harrison MD PCP: Dr. Kam Ocampo Sr., Status:A DM IN Location: NM3 RL710-2 HPI - General General Date of Admission: 08/02/24 Date of Service: 08/02/24 Chief Complaint: Low hgb HPI Narrative KATHERINE JUDGE, is a 89-year-old female with a history of TIA, hypertension, irondeficiency anemia, hip fracture repair last week, depression, GERD who presentedto [facility] ED 08/02/2024 with concerns for low hemoglobin. [...] she has had any surgeries or interventions. 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 Reading Location: [id number] Assessment & Plan Assessment/Plan (1) GI bleed: [...] Harrison MD Charges/Coding Visit Charges Inpatient E&M: 06917 Init Hosp L2 08/02/24 1750 Cosigner Signature (if applicable): CC: Dr. Kam Ocampo Sr., DO; Dr. Janine Harrison MD~ Signed [facility]06-24-2025 Discharge summary [facility] Medical Records Department [address] [place] [address] Emergency Department Summary 08/02/24 MR#: [id number] Acct: [id number] Name: KATHERINE JUDGE Rep #:[id number] : 1935 89 From: Jamie Beltrán DO [...] replacement while in the hospital last time. 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 Reading Location: [id number] Discharge Plan Triage Chief Complaint: Abn Labs [...] Sr., [Primary Care Provider] - Print Language: Malaysian Disposition Disposition: Acute Care Hospital [facility] What to do if you have Problems For any increased pain, shortness of breath, bleeding, nausea or vomiting, chestpain, or any unexpected problems, contact your Primary Care Provider. Call [facility] ([phone]) or report tothe closest Emergency Room. Call 911 if necessary. 08/02/24 1632 Cosigner Signature (if applicable): CC: Dr. Kam Ocampo Sr., DO ~ Signed [facility]06-24-2025 Discharge summary [facility] Medical Records Department [address] [place] [address] Emergency Department Summary 08/02/24 MR#: [id number] Acct: [id number] Name: KATHERINE JUDGE Rep #:[id number] : 1935 89 From: Jamie Beltrán DO PCP: Dr. Kam Ocampo Sr., DO Status:A DM IN Location: [place] [address] HPI History of Present Illness Chief Complaint: [...] replacement while in the hospital last time. 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 Reading Location: [id number] Discharge Plan Triage Chief Complaint: Abn Labs Other Complaint: Confusion ED Provider: Jmaie Beltrán Dx/Rx/DC Orders Clinical Impression: GI bleed, [...] DO [Primary Care Provider] - Print Language: Malaysian Disposition Disposition: Acute Care Hospital [facility] What to do if you have Problems For any increased pain, shortness of breath, bleeding, nausea or vomiting, chestpain, or any unexpected problems, contact your Primary Care Provider. Call [facility] ([phone]) or report tothe closest Emergency Room. Call 911 if necessary. 08/02/24 1631 Cosigner Signature (if applicable): CC: Dr. Kam Ocampo Sr., DO ~ Signed [facility]06-24-2025 Radiology Diagnostic study note [facility] Imaging Services [address] [place] [address] Abdomen/Pelvis W IV Cont ONLY MR#: [id number] Acct: [id number] Name: KATHERINE JUDGE Rep #: [id number] : 1935 F 89 From: Reyes Haynes MD PCP: Dr. Kam Ocampo Sr., DO Status: R EG ER Study:Abdomen/Pelvis W IV Cont ONLY Date of E xam: 08/02/24 Exam# [id number] Ordering Dr: Hector Beltrán DO PROCEDURE: ABDOMEN/PELVIS [...] Minimal intrahepatic biliary ductal dilatation. Reading Location: [id number] CC: Dr. Kam Ocampo Sr., DO; Dr. Jamie Beltrán, DO ~ Shaper Operator: Signed [facility]06-24-2025 Radiology Diagnostic study note [facility] Imaging Services [address] [place] [address] Abdomen/Pelvis W IV Cont ONLY MR#: [id number] Acct: [id number] Name: KATHERINE JUDGE Rep #: [id number] : 1935 F 89 From: Reyes Haynes MD PCP: Dr. Kam Ocampo Sr., DO Status: A DM IN Study:Abdomen/Pelvis W IV Cont ONLY Date of E xam: 08/02/24 Exam# [id number] Ordering Dr: Hector Beltrán DO PROCEDURE: ABDOMEN/PELVIS [...] Sr., DO; Dr. Jamie Beltrán DO ~ Shaper Operator: Signed [facility]06-24-2025 Discharge summary Author Jamie Beltrán [facility] Note Date/Time August 02, 2024 4:32 pm [facility] Medical Records Department [address] [place] [address] Emergency Department Summary 08/02/24 MR#: [id number] Acct: [id number] Name: KATHERINE JUDGE Rep #:[id number] : 1935 89 From: Jamie Beltrán DO [...] replacement while in the hospital last time. 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 Reading Location: [facility] Discharge Plan Triage Chief Complaint: Abn Labs [...] Kam [Primary Care Provider] - Print Language: Malaysian Disposition Disposition: Acute Care Hospital [facility] What to do if you have Problems For any increased pain, shortness of breath, bleeding, nausea or vomiting, chestpain, or any unexpected problems, contact your Primary Care Provider. Call [facility] ([phone]) or report to the closest Emergency Room. Call 911 if necessary. 08/02/24 4797 <Electronically signed by Jamie Beltrán DO> Cosigner Signature (if applicable): CC: Dr. Kam Ocampo Sr., DO ~ Signed [facility] Work Phone: 1(852) 585-510106-19-2025 Progress note [facility] Medical Records Department [address] [place] [address] Progress Note - Orthopedic 07/28/24 0708 MR#: [id number] Acct: [id number] Name: KATHERINE JUDGE Rep #:[id number] : 1935 89 From: Thanh Mclaughlin DO PCP: Dr. Kam Ocampo Sr., DO Status:A DM IN Location: MS3 PH066-2 Subjective Subjective Seen and examined. Pain is [...] Cosigner Signature (if applicable): CC: ~ Signed [facility]06-19-2025 Discharge summary Author Neymar Cunningham [facility] Note Date/Time July 28, 2024 11:3 0am [facility] Medical Records Department [address] [place] [address] Discharge Summary 07/28/24 1128 MR#: [id number] Acct: [id number] Name: KATHERINE JUDGE Rep #:[id number] : 1935 89 From: Neymar Herrera PCP: Dr. Kam Ocampo Sr., DO Status:A DM IN Location: [place] [address] Providers Date of Admission: 07/25/24 Date of [...] is an 89-year-old female who presented to [facility] ED on 07/25/2024 with right hip pain after a mechanical fall. 1. Acute debility due to right hip nondisplaced intertrochanteric fracture: [facility]. Hip and pelvis x-rays [...] Patient on home oxygen as needed in halfway but required 4 L at time of [...] CBC and BMP in 1 week in halfway. Preoperative evaluation ? NSQIP score: Patient is [...] PT/OT/case management consulted as above. Lives in [facility], will likely be okay to return there [...] of the proximal right femur. Reading Location: [place] [address] Chest X-Ray 07/25/24 15:15 IMPRESSION: Cardiomegaly and vascular congestion with atelectasis at the lung bases. Reading Location: [facility]-IR-1 Femur X-Ray 07/25/24 17:40 IMPRESSION: Nondisplaced intertrochanteric fracture. Reading Location: [id number] Echocardiogram 07/25/24 22:20 Interpretation Summary Hypermobile atrial [...] % (Auto) 65.7, Lymph % (Auto) 25.1, [place] % (Auto) 5.8, Eos % (Auto) 2.9, [...] Care Facility Charges/Coding Visit Charges Inpatient E&M: 51846 Disch Hosp >30min 07/28/24 1130 <Electronically signed by Neymar Cunningham MD> Cosigner Signature (if applicable): CC: Dr. Kam Ocampo Sr., DO; Dr. Neymar Cunningham MD~ Signed [facility] Work Phone: 1(383) 293-493806-19-2025 Discharge summary Author Neymar Cunningham [facility] Note Date/Time July 28, 2024 11:2 8am [facility] Medical Records Department [address] [place] [address] Transfer to [facility] MR#: [id number] Acct: [id number] Name: KATHERINE JUDGE Rep #:[id number] : 1935 89 From: Neymar Herrera PCP: Dr. Kam Ocampo Sr., DO Status:A DM IN Certification of patient admission REQUIRED AT TIME OF ADMISSION. I CERTIFY THAT POST-HOSPITAL ECF SERVICES ARE REQUIRED TO BE GIVEN ON AN IN-PATIENT BASIS BECAUSE OF THE ABOVE NAMED PATIENT'S NEED FOR ASSISTED CARE ON A CONTINUING BASIS FOR THE [...] is an 89-year-old female who presented to [facility] ED on 07/25/2024 with right hip pain after a mechanical fall. 1. Acute debility due to right hip nondisplaced intertrochanteric fracture: Patient is being admitted on [facility] floor. Hip and pelvis x-rays reviewed and [...] Patient on home oxygen as needed in halfway but required 4 L at time of [...] PT/OT/case management consulted as above. Lives in [facility], will likely be okay to return there [...] of the proximal right femur. Reading Location: [facility]-IR-1 Chest X-Ray 07/25/24 15:15 IMPRESSION: Cardiomegaly and vascular congestion with atelectasis at the lung bases. Reading Location: [facility] Femur X-Ray 07/25/24 17:40 IMPRESSION: Nondisplaced intertrochanteric fracture. Reading Location: [id number] Echocardiogram 07/25/24 22:20 Interpretation Summary Hypermobile atrial [...] Sr., ; Dr. Thanh Mclaughlin DO ~ [facility] Work Phone: 1(821) 528-729106-19-2025 Discharge summary [facility] Medical Records Department [address] [place] [address] Discharge Summary 07/28/24 1128 MR#: [id number] Acct: [id number] Name: DERICKKATHERINE Wilber Rep #:[id number] : 1935 89 From: Neymar Herrera PCP: Dr. Kam Ocampo Sr., DO Status:A DM IN [facility] Providers Date of Admission: 07/25/24 Date of [...] is an 89-year-old female who presented to [facility] ED on 07/25/2024 with right hip pain after a mechanical fall. 1. Acute debility due to right hip nondisplaced intertrochanteric fracture: [facility]. Hip and pelvis x-rays [...] Patient on home oxygen as needed in halfway but required 4 L at time of [...] CBC and BMP in 1 week in halfway. Preoperative evaluation ? NSQIP score: Patient is [...] PT/OT/case management consulted as above. Lives in [facility], will likely be okay to return there [...] of the proximal right femur. Reading Location: [facility] Chest X-Ray 07/25/24 15:15 IMPRESSION: Cardiomegaly and vascular congestion with atelectasis at the lung bases. Reading Location: [facility] Femur X-Ray 07/25/24 17:40 IMPRESSION: Nondisplaced intertrochanteric fracture. Reading Location: [id number] Echocardiogram 07/25/24 22:20 Interpretation Summary Hypermobile atrial [...] % (Auto) 65.7, Lymph % (Auto) 25.1, [place] % (Auto) 5.8, Eos % (Auto) 2.9, [...] Care Facility Charges/Coding Visit Charges Inpatient E&M: 80243 Disch Hosp >30min 07/28/24 1130 Cosigner Signature (if applicable): CC: Dr. Kam Ocampo Sr., DO; Dr. Neymar Cunningham MD~ Signed [facility]06-19-2025 Discharge summary [facility] Medical Records Department [address] [place] [address] Transfer to Extended Care MR#: [id number] Acct: [id number] Name: KATHERINE JUDGE Wilber Rep #:[id number] : 1935 89 From: Neymar Herrera PCP: Dr. Kam Ocampo Sr., DO Status:A DM IN Certification of patient admission REQUIRED AT TIME OF ADMISSION. I CERTIFY THAT POST-HOSPITAL ECF SERVICES ARE REQUIRED TO BE GIVEN ON AN IN-PATIENT BASIS BECAUSE OF THE ABOVE NAMED PATIENT'S NEED FOR ASSISTED CARE ON A CONTINUING BASIS FOR THE [...] is an 89-year-old female who presented to [facility] ED on 07/25/2024 with right hip pain after a mechanical fall. 1. Acute debility due to right hip nondisplaced intertrochanteric fracture: Patient is being admitted on [facility] floor. Hip and pelvis x-rays reviewed and [...] Patient on home oxygen as needed in halfway but required 4 L at time of [...] PT/OT/case management consulted as above. Lives in [facility], will likely be okay to return there [...] of the proximal right femur. Reading Location: [facility] Chest X-Ray 07/25/24 15:15 IMPRESSION: Cardiomegaly and vascular congestion with atelectasis at the lung bases. [facility] 07/25/24 17:40 IMPRESSION: Nondisplaced intertrochanteric fracture. Reading Location: [id number] Echocardiogram 07/25/24 22:20 Interpretation Summary Hypermobile atrial [...] Sr., DO; Dr. Thanh Mclaughlin DO ~ [facility]06-19-2025 [facility]06-19-2025 Progress note Author Neymar Cunningham [facility] Note Date/Time July 28, 2024 8:00 am [facility] Medical Records Department [address] [place] [address] Progress Note - Hospitalist 07/28/24 0753 MR#: [id number] Acct: [id number] Name: KATHERINE JUDGE Rep #:[id number] : 1935 89 From: Neymar Herrera PCP: Dr. Kam Ocampo SrLeigh, DO Status:A DM IN Location: [place] [address] Reason for Visit Reason for Visit: Diagnoses [...] % (Auto) 65.7, Lymph % (Auto) 25.1, [place] % (Auto) 5.8, Eos % (Auto) 2.9, [...] states that she uses oxygen as needed halfway. Uses CPAP diligently at night Blood pressure [...] is an 89-year-old female who presented to [facility] ED on 07/25/2024 with right hip pain after a mechanical fall. 1. Acute debility due to right hip nondisplaced intertrochanteric fracture: Patient is being admitted on [facility] floor. Hip and pelvis x-rays reviewed and [...] Patient on home oxygen as needed in halfway but required 4 L at time of [...] PT/OT/case management consulted as above. Lives in [facility], will likely be okay to return there [...] of the proximal right femur. [facility] Chest X-Ray 07/25/24 15:15 IMPRESSION: Cardiomegaly and vascular congestion with atelectasis at the lung bases. Reading Location: [facility] Femur X-Ray 07/25/24 17:40 IMPRESSION: Nondisplaced intertrochanteric fracture. Reading Location: [id number] Echocardiogram 07/25/24 22:20 Interpretation Summary Hypermobile atrial septum. Normal LV size. Left ventricular systolic function is normal. The left ventricular ejection fraction is 70 %. Stage 1 diastolic dysfunction. Mild-Moderate (1-2+) anteriorly directed mitral valve insufficiency. Posterior leaflet mitral valve prolapse. Moderate pulmonary hypertension. Charges/Coding Visit Charges Inpatient E&M: 54888 Subs Hosp L2 07/28/24 0800 <Electronically signed by Neymar Cunningham MD> Cosigner Signature (if applicable): CC: ~ Signed [facility] Work Phone: 1(104) 638-530206-19-2025 Progress note Author Thanh Mclaughlin [facility] Note Date/Time July 28, 2024 3:45 pm [facility] Medical Records Department [address] [place] [address] Progress Note - Orthopedic 07/28/24 0708 MR#: [id number] Acct: [id number] Name: KATHERINE JUDGE Rep #:[id number] : 1935 89 From: Thanh Mclaughlin DO PCP: Dr. Kam Ocampo Sr., DO Status:A DM IN Location: [place] [address] Subjective Subjective Seen and examined. Pain is [...] Cosigner Signature (if applicable): CC: ~ Signed [facility] Work Phone: 1(295) 638-799806-19-2025 Progress note [facility] Medical Records Department [address] [place] [address] Progress Note - Hospitalist 07/28/24 0753 MR#: [id number] Acct: [id number] Name: KATHERINE JUDGE Rep #:[id number] : 1935 89 From: Neymar Herrera PCP: Dr. Kam Ocampo Sr., DO Status:A DM IN Location: [place] [address] Reason for Visit Reason for Visit: Diagnoses [...] % (Auto) 65.7, Lymph % (Auto) 25.1, [place] % (Auto) 5.8, Eos % (Auto) 2.9, [...] states that she uses oxygen as needed halfway. Uses CPAP diligently at night Blood pressure [...] is an 89-year-old female who [facility] [facility] ED on 07/25/2024 with right hip pain after a mechanical fall. 1. Acute debility due to right hip nondisplaced intertrochanteric fracture: [facility]. Hip and pelvis x-rays [...] Patient on home oxygen as needed in halfway but required 4 L at time of [...] PT/OT/case management consulted as above. Lives in [facility], will likely be okay to return there [...] atelectasis at the lung bases. [facility] X-Ray 07/25/24 17:40 IMPRESSION: Nondisplaced intertrochanteric fracture. Reading Location: [id number] Echocardiogram 07/25/24 22:20 Interpretation Summary Hypermobile atrial septum. Normal LV size. Left ventricular systolic function is normal. The left ventricular ejection fraction is 70 %. Stage 1 diastolic dysfunction. Mild-Moderate (1-2+) anteriorly directed mitral valve insufficiency. Posterior leaflet mitral valve prolapse. Moderate pulmonary hypertension. Charges/Coding Visit Charges Inpatient E&M: 64270 Subs Hosp L2 07/28/24 0800 Cosigner Signature (if applicable): CC: ~ Signed [facility]06-18-2025 Progress note Author Neymar Cunningham [facility] Note Date/Time July 27, 2024 5:50 pm [facility] Medical Records Department [address] [place] [address] Progress Note - Hospitalist 07/27/24 1746 MR#: [id number] Acct: [id number] Name: KATHERINE JUDGE Rep #:[id number] : 1935 89 From: Neymar Herrera PCP: Dr. Kam Ocampo Sr., DO Status:A DM IN Location: [facility] QA051-0 Reason for Visit Reason for Visit: Diagnoses [...] 88.1 H, Lymph % (Auto) 8.5 L, [place] % (Auto) 2.9, Eos % (Auto) 0.0, [...] 07/26/24 15:09 IMPRESSION: As above. Reading Location: [id number] Physical Exam Narrative Seen and examined. Patient had right hip surgery yesterday. Doing well, sitting up in the chair. On 2 L of oxygen. Denies shortness of breath. Patient states that she uses oxygen as needed halfway. Uses CPAP diligently at night Blood pressure [...] is an 89-year-old female who presented to [facility] ED on 07/25/2024 with right hip pain after a mechanical fall. 1. Acute debility due to right hip nondisplaced intertrochanteric fracture: [facility]. Hip and pelvis x-rays [...] Patient on home oxygen as needed in halfway but required 4 L at time of [...] PT/OT/case management consulted as above. Lives in [facility], will likely be okay to return there [...] of the proximal right femur. Reading Location: [facility] Chest X-Ray 07/25/24 15:15 IMPRESSION: Cardiomegaly and vascular congestion with atelectasis at the lung bases. [facility] 07/25/24 17:40 IMPRESSION: Nondisplaced intertrochanteric fracture. Reading Location: [id number] Echocardiogram 07/25/24 22:20 Interpretation Summary Hypermobile atrial septum. Normal LV size. Left ventricular systolic function is normal. The left ventricular ejection fraction is 70 %. Stage 1 diastolic dysfunction. Mild-Moderate (1-2+) anteriorly directed mitral valve insufficiency. Posterior leaflet mitral valve prolapse. Moderate pulmonary hypertension. Charges/Coding Visit Charges Inpatient E&M: 01895 Subs Hosp L2 07/27/24 1750 <Electronically signed by Neymar Cunningham MD> Cosigner Signature (if applicable): CC: ~ Signed [facility] Work Phone: 1(326) 438-868206-18-2025 Progress note [facility] Medical Records Department [address] [facility] [place] [address] Progress Note - Hospitalist 07/27/24 1746 MR#: [id number] Acct: [id number] Name: KATHERINE JUDGE Rep #:[id number] : 1935 89 From: Neymar Herrera PCP: Dr. Kam Ocampo SrLeigh, DO Status:A DM IN [facility] Reason for Visit Reason for Visit: Diagnoses [...] 88.1 H, Lymph % (Auto) 8.5 L, [place] % (Auto) 2.9, Eos % (Auto) 0.0, [...] 07/26/24 15:09 IMPRESSION: As above. Reading Location: [place] [address] Physical Exam Narrative Seen and examined. Patient had right hip surgery yesterday. Doing well, sitting up in the chair. On 2 L of oxygen. Denies shortness of breath. Patient states that she uses oxygen as needed halfway. Uses CPAP diligently at night Blood pressure [...] is an 89-year-old female who presented to [facility] ED on 07/25/2024 with right hip pain [...] Patient on home oxygen as needed in halfway but required 4 L at time of [...] PT/OT/case management consulted as above. Lives in [facility], will likely be okay to return there [...] of the proximal right femur. [facility] Chest X-Ray 07/25/24 15:15 IMPRESSION: Cardiomegaly and vascular congestion with atelectasis at the lung bases. [facility] Femur X-Ray 07/25/24 17:40 IMPRESSION: Nondisplaced intertrochanteric fracture. Reading Location: [id number] Echocardiogram 07/25/24 22:20 Interpretation Summary Hypermobile atrial septum. Normal LV size. Left ventricular systolic function is normal. The left ventricular ejection fraction is 70 %. Stage 1 diastolic dysfunction. Mild-Moderate (1-2+) anteriorly directed mitral valve insufficiency. Posterior leaflet mitral valve prolapse. Moderate pulmonary hypertension. Charges/Coding Visit Charges Inpatient E&M: 96424 Subs Hosp L2 07/27/24 1750 Cosigner Signature (if applicable): CC: ~ Signed [facility]06-18-2025 [facility] Note Date/Time July 27, 2024 1:28 pm [facility] Medical Records Department [address] [place] [address] Progress Note - Orthopedic 07/27/24 1326 MR#: [id number] Acct: [id number] Name: KATHERINE JUDGE Wilber Rep #:[id number] : 1935 89 From: Thanh Mclaughlin DO PCP: Dr. Kam Ocampo Sr., DO Status:A DM IN Location: MS3 NN517-9 Subjective Subjective Patient seen and examined. She [...] 88.1 H, Lymph % (Auto) 8.5 L, [place] % (Auto) 2.9, Eos % (Auto) 0.0, [...] 07/26/24 15:09 IMPRESSION: As above. Reading Location: [place] [address] Physical Exam Const alert, oriented x3 and [...] Cosigner Signature (if applicable): CC: ~ Signed [facility] Work Phone: 1(573) 670-608606-18-2025 Progress note [facility] Medical Records Department [address] [place] [address] Progress Note - Orthopedic 07/27/24 1326 MR#: [id number] Acct: [id number] Name: KATHERINE JUDGE Rep #:[id number] : 1935 89 From: Thanh Mclaughlin DO PCP: Dr. Kam Ocampo Sr., DO Status:A DM IN Location: NM3 SL369-2 Subjective Subjective Patient seen and examined. She [...] 88.1 H, Lymph % (Auto) 8.5 L, [place] % (Auto) 2.9, Eos % (Auto) 0.0, [...] 07/26/24 15:09 IMPRESSION: As above. Reading Location: [place] [address] Physical Exam Const alert, oriented x3 and [...] Cosigner Signature (if applicable): CC: ~ Signed [facility]06-17-2025 Radiology Diagnostic study note [facility] Imaging Services [address] [place] [address] Hip Min 2 Views (Portable) MR#: [id number] Acct: [id number] Name: KATHERINE JUDGE Rep #: [id number] : 1935 F 89 From: Brannon Bland MD PCP: Dr. Kam Ocampo Sr., Status: A DM IN Study:Hip Min 2 Views (Portable) Date of Exam : 07/26/24 Exam# [id number] Ordering Dr: Thanh Mclaughlin DO PROCEDURE: HIP MIN 2 VIEWS (PORTABLE) 07/26/2024 REASON FOR EXAM: FX REPAIR IN OR TECHNIQUE: Fluoroscopic images of the right hip. COMPARISON: 07/25/2024. FINDINGS: Fluoroscopic images for ORIF of a intertrochanteric right femoral fracture. Fluoroscopic time of 44.2 seconds. 4.90 mGy. See procedure report for full details. RAD/Hip Min 2 Views (Portable) IMPRESSION: As above. Reading Location: [id number] CC: Dr. Kam Ocampo Sr., DO; Dr. Thanh Mclaughlin DO ~ Shaper Operator: Signed [facility]06-17-2025 Consult note Author Rocky Sidhu [facility] Note Date/Time July 26, 2024 6:43 pm [facility] Medical Records Department [address] [place] [address] Anesthesia Postop Eval II 07/26/241842 MR#: [id number] Acct: [id number] Name: KATHERINE JUDGE Rep #:[id number] : 1935 89 From: Rocky Sidhu MD PCP: Dr. Kam Ocampo Sr., DO Status:A DM IN Y Race: C Location: [place] [id number] 1 Anesthesia Postop Eval I Sum Postop Eval Completion status Anesthesia document: Postop Eval 1 completed: Yes Anesthesia Postop Eval I Summary Anesthesia Postop Eval I Summary: Anesthesia Postop Eval I: Assessment Summary Airway patent Yes 07/26/24 18:33 CONSERVATION SCIENCE TEACHER.DBAK Spontaneous unlabored Yes 07/26/24 18:33 CONSERVATION SCIENCE TEACHER.DBAK respirations Mental status Awake 07/26/24 18:33 CONSERVATION SCIENCE TEACHER.DBAK nausea No 07/26/24 18:33 CONSERVATION SCIENCE TEACHER.DBAK Vomiting No 07/26/24 18:33 CONSERVATION SCIENCE TEACHER.DBAK Anesthesia Postop Eval I: Fluid Summary Crystalloid volume administer 600 07/26/24 18:33 CONSERVATION SCIENCE TEACHER.DBAK (ml) Colloids volume administered ( ml) Blood Product volume administered (ml) Total IV fluid infused 600 07/26/24 18:33 CONSERVATION SCIENCE TEACHER.DBAK Anesthesia Postop Eval I: Summary Notes Anesthesia Complication No 07/26/24 18:33 CONSERVATION SCIENCE TEACHER.DBAK Anesthesia Complication Comment: Post-operative progress note VSS see PACU notes 07/26/24 18:33 CONSERVATION SCIENCE TEACHER.DBAK for detaILS Anesthesia: Postop Eval II Evaluation Mental status: Awake Pain Level: 0 nausea: No Vomiting: No Complications Anesthesia Complication: No 07/26/241842 <Electronically signed by Rocky Sidhu MD> Date _ Rocky Sidhu MD Cosigner Signature: Date CC: ~ Signed [facility] Work Phone: 1(640) 477-915806-17-2025 Consult note Author Florentin Clemens [facility] Note Date/Time July 26, 2024 6:33 pm [facility] Medical Records Department [address] [facility] [place] [address] Anesthesia Postop Eval I 07/26/24 183 MR#: [id number] Acct: [id number] Name: DERICKKATHERINE Wilber Rep #:[id number] : 1935 89 From: Florentin Cameron CONSERVATION SCIENCE TEACHER PCP: Dr. Kam Ocampo Sr., DO Status:A DM IN Y Race: C Location: [place] [address] Anesthesia: Postop Eval I Current Vital Signs [...] CRNA Cosigner Signature: Date CC: ~ Signed [facility] Work Phone: 1(442) 321-351706-17-2025 Consult note [facility] Medical Records Department [address] [place] [address] Anesthesia Postop Eval II 07/26/24 1843 MR#: [id number] Acct: [id number] Name: KATHERINE JUDGE Rep #:[id number] : 1935 89 From: Rocky Sidhu MD PCP: Dr. Kam Ocampo SrLeigh, DO Status:A DM IN Y Race: C Location: MS3 MS316 -1 Anesthesia Postop Eval I Sum Postop Eval Completion status Anesthesia document: Postop Eval 1 completed: Yes Anesthesia Postop Eval I Summary Anesthesia Postop Eval I Summary: Anesthesia Postop Eval I: Assessment Summary Airway patent Yes 07/26/24 18:33 CONSERVATION SCIENCE TEACHER.DBAK Spontaneous unlabored Yes 07/26/24 18:33 CONSERVATION SCIENCE TEACHER.DBAK respirations Mental status Awake 07/26/24 18:33 CONSERVATION SCIENCE TEACHER.DBAK nausea No 07/26/24 18:33 CONSERVATION SCIENCE TEACHER.DBAK Vomiting No 07/26/24 18:33 CONSERVATION SCIENCE TEACHER.DBAK Anesthesia Postop Eval I: Fluid Summary Crystalloid volume administer 600 07/26/24 18:33 CONSERVATION SCIENCE TEACHER.DBAK (ml) Colloids volume administered ( ml) Blood Product volume administered (ml) Total IV fluid infused 600 07/26/24 18:33 CONSERVATION SCIENCE TEACHER.DBAK Anesthesia Postop Eval I: Summary Notes Anesthesia Complication No 07/26/24 18:33 CONSERVATION SCIENCE TEACHER.DBAK Anesthesia Complication Comment: Post-operative progress note VSS see PACU notes 07/26/24 18:33 CONSERVATION SCIENCE TEACHER.DBAK for detaILS Anesthesia: Postop Eval II Evaluation Mental status: Awake Pain Level: 0 nausea: No Vomiting: No Complications Anesthesia Complication: No 07/26/24 1843 MD> Date _ Rocky Sidhu MD Cosigner Signature: Date CC: ~ Signed [facility]06-17-2025 Consult note Author Rocky Sidhu [facility] Note Date/Time July 26, 2024 4:41 pm [facility] Medical Records Department [address] [place] [address] Pre-Anesthesia Evaluation 07/26/24 1622 MR#: [id number] Acct: [id number] Name: KATHERINE JUDGE Rep #:[id number] : 1935 89 From: Rocky Sidhu MD PCP: Dr. 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 History - residential building inspector Hx Hospitalization Any Problems With Anesthesia No [...] take am of surgery PONV PONV - residential building inspector: PONV - residential building inspector Female HX of Motion Sickness HX of N/V After Surgery Non-Smoker Duration of Surgery greater than 60 minutes Number of Risk Factors PONV Score Height & Weight Height & Weight: Anesthesia: Height & Weight Height 5 ft 07/26/24 13:46 Weight: 48.534 kg 07/26/24 13:46 Body Mass Index (BMI) 20.9 07/26/24 13:46 Respiratory Assessment Respiratory Assessment - residential building inspector: Respiratory Tract Infection Hx - residential building inspector Hx Respiratory Tract Infection No 07/26/24 03:31 STOP Sleep Apnea STOP Sleep Apnea - residential building inspector: STOP Sleep Apnea - residential building inspector Hx Hypertension Yes 07/25/24 18:26 Hx Sleep [...] Tobacco Use History Tobacco Use History - residential building inspector: Tobacco Use History - residential building inspector Tobacco Use Smoking Status Never smoker 07/25/24 18:26 Hx Tobacco Use No 07/25/24 18:26 Years Smoking Packs Smoked per Day Smoking Cessation Date was No - quit smoking greater 07/25/24 18:26 within the last 15 years than 15 years ago Hx Smoking Cessation Date Hx Smoking Cessation Counseling Hematologic Medial History Hematologic Hx - residential building inspector: Hematologic Medical Hx - 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 Hx of Blood Transfusion Yes 07/25/24 18:26 [...] confused, unrespo /Reproduction History /Reproductive 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 Protocol Loratadine 10 mg 07/26/24 10:00 07/26/24 08:23 Loratadine 10 Mg Tablet PO Not Given DAILY [facility]UM[facility]O Melatonin 3 mg 07/25/24 22:00 Melatonin 3 Mg Tablet PO QHS PRN PRN INSOMNIA Metoprolol Tartrate 25 mg 07/25/24 22:00 07/26/24 09:13 Metoprolol Tartrate 25 Mg Tablet PO Not Given BID [facility] Protocol Mirtazapine 30 mg 07/25/24 22:00 07/25/24 22:25 Mirtazapine 30 Mg Tablet PO [address] [facility] Administration Montelukast Sodium 10 mg 07/26/24 10:00 07/26/24 08:23 Montelukast 10 Mg Tablet PO Not Given DAILY [facility] Multivitamins 1 tablet 07/26/24 08:00 07/26/24 08:23 Multivitamins,Therapeutic Tablet [facility] Ondansetron HCl 4 mg 07/25/24 18:26 07/26/24 12:31 Ondansetron 4 Mg/2 Ml Vial IV 4 mg Q8H PRN PRN Administration NAUSEA/VOMITING Oxycodone HCl 5 mg 07/25/24 18:26 07/26/24 10:54 Oxycodone 5 Mg Tablet PO 5 mg Q4H PRN PRN Administration Pain Score 6-10 Pantoprazole Sodium 40 mg 07/26/24 10:00 07/26/24 08:23 Pantoprazole Sodium 40 Mg Tablet PO Not Given DAILY [facility] Potassium Chloride 20 meq 07/26/24 10:00 07/26/24 08:23 Potassium Chloride Oral Tablet 20 Meq PO Not Given DAILY [facility]O Senna/Docusate Sodium 1 tablet 07/26/24 22:00 Senna/Docusate Sodium [address] [facility] Sodium Chloride 10 - 40 ml 07/25/24 [...] MD Cosigner Signature: Date CC: ~ Signed [facility] Work Phone: 1(597) 644-746206-17-2025 Consult note [facility] Medical Records Department [address] [place] [address] Anesthesia Postop Eval I 07/26/241831 MR#: [id number] Acct: [id number] Name: KATHERINE JUDGE Rep #:[id number] : 1935 89 From: Florentin Cameron CRNA PCP: Dr. 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 Kam Ocampo Sr., DO Status:A DM IN [place] [facility] [place] HF452-9 Operative Report (Standard) Operative Information Date of Procedure: 07/26/24 Pre-Operative Diagnosis: Right hip intertrochanteric femur fracture Post-Operative Diagnosis: Same Surgery/Procedure Performed: Right hip cephalomedullary fixation outpatient therapist: No Type of Anesthesia: General RN Documented [...] irrigated the fascia was closed with #1 [id number]-wijic Vicryls followed by 2-0 Vicryl in the [...] Intertrochanteric femur fracture Complications Complications: No 07/26/24 5870 Cosigner Signature (if applicable): CC: Dr. Hayden Diaz, DO; Dr. Kam Ocampo Sr., DO; Dr. Thanh Mclaughlin, DO~ Signed [facility]06-17-2025 Progress note Author Neymar Cunningham [facility] Note Date/Time July 26, 2024 3:30 pm [facility] Medical Records Department [address] [place] [address] Progress Note - Hospitalist 07/26/24 1018 MR#: [id number] Acct: [id number] Name: KATHERINE JUDGE Rep #:[id number] : 1935 89 From: Neymar Herrera PCP: Dr. Kam Ocampo Sr., DO Status:A DM IN Location: [address] Reason for Visit Reason for Visit: [...] % (Auto) 69.2, Lymph % (Auto) 22.9, [place] % (Auto) 6.2, Eos % (Auto) 0.9, [...] Clarity Clear, Urine pH 8.0, Ur Specific [place] 1.010, Urine Protein 30 H, Urine Glucose [...] 151 H, Calcium 8.9, Troponin T Hi Klkx2Ul 25 H, TSH 2.060, Blood Type O POSITIVE, Antibody Screen NEGATIVE Radiography Diagnostic Testing: Radiology Impression Hip/Pelvis X-Ray 07/25/24 15:10 IMPRESSION: Nondisplaced right intertrochanteric fracture of the proximal right femur. [facility] Chest X-Ray 07/25/24 15:15 IMPRESSION: Cardiomegaly and vascular congestion with atelectasis at the lung bases. Reading Location: [facility]-IR-1 Femur X-Ray 07/25/24 17:40 IMPRESSION: Nondisplaced intertrochanteric fracture. Reading Location: [id number] Echocardiogram 07/25/24 22:20 Interpretation Summary Hypermobile atrial septum. Normal LV size. Left ventricular systolic function is normal. The left ventricular ejection fraction is 70 %. Stage 1 diastolic dysfunction. Mild-Moderate (1-2+) anteriorly directed mitral valve insufficiency. Posterior leaflet mitral valve prolapse. Moderate pulmonary hypertension. Ordering Physician: Hayden Daiz Referring Physician: Kam Ocampo Performed By: Celeste Gore, ELENITACS, RVT Physical Exam Const Constitutional Narrative: Seen and examined. Patient states that she uses oxygen as needed halfway. Uses CPAP diligently at night. Denies chest [...] is an 89-year-old female who presented to [facility] ED on 07/25/2024 with right hip pain [...] Patient on home oxygen as needed in halfway but required 4 L at time of [...] PT/OT/case management consulted as above. Lives in [facility], will likely be okay to return there [...] of the proximal right femur. [facility] Chest X-Ray 07/25/24 15:15 IMPRESSION: Cardiomegaly and vascular congestion with atelectasis at the lung bases. Reading Location: [facility]-IR-1 Femur X-Ray 07/25/24 17:40 IMPRESSION: Nondisplaced intertrochanteric fracture. Reading Location: [id number] Echocardiogram 07/25/24 22:20 Interpretation Summary Hypermobile atrial [...] is 35 minutes. Visit Charges Inpatient E&M: 15292 Subs Hosp L3 07/26/24 1530 <Electronically signed by Neymar Cunningham MD> Cosigner Signature (if applicable): CC: ~ Signed [facility] Work Phone: 1(165) 322-502506-17-2025 Consult note [facility] Medical Records Department [address] [place] [address] Pre-Anesthesia Evaluation 07/26/24 1622 MR#: [id number] Acct: [id number] Name: KATHERINE JUDGE Rep #:[id number] : 1935 89 From: Rocky Sidhu MD PCP: Dr. 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: Anesthesia History - residential building inspector Hx Hospitalization Any Problems With Anesthesia No [...] take am of surgery PONV PONV - residential building inspector: PONV - residential building inspector Female HX of Motion Sickness HX of N/V After Surgery Non-Smoker Duration of Surgery greater than 60 minutes Number of Risk Factors PONV Score Height & Weight Height & Weight: Anesthesia: Height & Weight Height 5 ft 07/26/24 13:46 Weight: 48.534 kg 07/26/24 13:46 Body Mass Index (BMI) 20.9 07/26/24 13:46 Respiratory Assessment Respiratory Assessment - residential building inspector: Respiratory Tract Infection Hx - residential building inspector Hx Respiratory Tract Infection No 07/26/24 03:31 STOP Sleep Apnea STOP Sleep Apnea - residential building inspector: STOP Sleep Apnea - residential building inspector Hx Hypertension Yes 07/25/24 18:26 Hx Sleep [...] Tobacco Use History Tobacco Use History - residential building inspector: Tobacco Use History - residential building inspector Tobacco Use Smoking Status Never smoker 07/25/24 18:26 Hx Tobacco Use No 07/25/24 18:26 Years Smoking Packs Smoked per Day Smoking Cessation Date was No - quit smoking greater 07/25/24 18:26 within the last 15 years than 15 years ago Hx Smoking Cessation Date Hx Smoking Cessation Counseling Hematologic Medial History Hematologic Hx - residential building inspector: 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 Protocol Hydromorphone HCl 0.5 mg 07/25/24 20:49 07/25/24 22:16 Hydromorphone 0.5 Mg/0.5 Ml Syringe IV 0.5 mg Q4H PRN PRN Administration Pain Score 6-10 Sodium Chloride 250 mls @ 15 mls/hr 07/25/24 18:28 IV .[id number] PRN Saline Flush Sodium Chloride 250 mls @ 15 mls/hr 07/25/24 18:28 IV .[id number] PRN Additional IVPB Infusion Lactated Ringer's 1,000 mls @ 15 mls/hr 07/26/24 15:45 IV .Q48H HUMBERTO Vancomycin HCl 1,000 mg in 200 mls @ 200 mls/hr 07/26/24 15:57 Vancomycin IV 07/26/24 16:56 PREOP ONE Isosorbide Mononitrate 30 mg 07/26/24 10:00 Isosorbide Mononitrate 30 Mg Tablet PO DAILY [facility] Protocol Loratadine 10 mg 07/26/24 10:00 07/26/24 08:23 Loratadine 10 Mg Tablet PO Not Given DAILY [facility] Melatonin 3 mg 07/25/24 22:00 Melatonin 3 Mg Tablet PO QHS PRN PRN INSOMNIA Metoprolol Tartrate 25 mg 07/25/24 22:00 07/26/24 09:13 Metoprolol Tartrate 25 Mg Tablet PO Not Given BID [facility] Protocol Mirtazapine 30 mg 07/25/24 22:00 07/25/24 [...] 22:00 Senna/Docusate Sodium [address] [facility] Sodium Chloride 10 - 40 ml 07/25/24 [...] Rocky Dodson Signature: Date CC: ~ Signed [facility]06-17-2025 Progress note [facility] Medical Records Department [address] [place] [address] Progress Note - Hospitalist 07/26/24 1018 MR#: [id number] Acct: [id number] Name: KATHERINE JUDGE Rep #:[id number] : 1935 89 From: Neymar Herrera PCP: Dr. Kam Ocampo Sr., DO Status:A DM IN Location: [address] Reason for Visit Reason for Visit: [...] % (Auto) 69.2, Lymph % (Auto) 22.9, Greenwood % (Auto) 6.2, Eos % (Auto) 0.9, [...] Clarity Clear, Urine pH 8.0, Ur Specific [place] 1.010, Urine Protein 30 H, Urine Glucose [...] 151 H, Calcium 8.9, Troponin T Hi Klrn3Fc 25 H, TSH 2.060, Blood Type O POSITIVE, Antibody Screen NEGATIVE Radiography Diagnostic Testing: Radiology Impression Hip/Pelvis X-Ray 07/25/24 15:10 IMPRESSION: Nondisplaced right intertrochanteric fracture of the proximal right femur. Reading Location: [facility]-1 Chest X-Ray 07/25/24 15:15 IMPRESSION: Cardiomegaly and vascular congestion with atelectasis at the lung bases. Reading Location: [facility]1 Femur X-Ray 07/25/24 17:40 IMPRESSION: Nondisplaced intertrochanteric fracture. Reading Location: [id number] Echocardiogram 07/25/24 22:20 Interpretation Summary Hypermobile atrial [...] states that she uses oxygen as needed halfway. Uses CPAP diligently at night. Denies chest [...] is an 89-year-old female who presented to [facility] ED on 07/25/2024 with right hip pain after a mechanical fall. 1. Acute debility due to right hip nondisplaced intertrochanteric fracture: [facility]. Hip and pelvis x-rays [...] Patient on home oxygen as needed in halfway but required 4 L at time of [...] PT/OT/case management consulted as above. Lives in [facility], will likely be okay to return there [...] of the proximal right femur. Reading Location: [facility] Chest X-Ray 07/25/24 15:15 IMPRESSION: Cardiomegaly and vascular congestion with atelectasis at the lung bases. Reading Location: [facility] Femur X-Ray 07/25/24 17:40 IMPRESSION: Nondisplaced intertrochanteric fracture. Reading Location: [id number] Echocardiogram 07/25/24 22:20 Interpretation Summary Hypermobile atrial [...] is 35 minutes. Visit Charges Inpatient E&M: 72660 Subs Hosp L3 07/26/24 1530 Cosigner Signature (if applicable): CC: ~ Signed [facility]06-17-2025 Discharge summary Author Jacobo Moya [facility] Note Date/Time July 25, 2024 11:2 7pm [facility] Medical Records Department [address] [place] [address] Emergency Department Summary 07/25/24 MR#: [id number] Acct: [id number] Name: KATHERINE JUDGE Rep #:[id number] : 1935 89 From: Jacobo Palmer PCP: Dr. Kam Ocampo Sr., Status:A DM IN [facility] H[facility] HPI - Fall History of Present [...] of consciousness. Patient denies any other injuries. [facility] Medical History (Updated 07/25/24 @ 17:08 by [...] % (Auto) 69.2 Lymph % (Auto) 22.9 Greenwood % (Auto) 6.2 Eos % (Auto) 0.9 [...] of the proximal right femur. Reading Location: [facility] Chest X-Ray 07/25/24 15:15 IMPRESSION: Cardiomegaly and vascular congestion with atelectasis at the lung bases. Reading Location: [facility]1 Portable 1 view chest x-ray was [...] sinus rhythm with a rate of 66. RI interval was normal at 170 ms. QRS interval was prolonged at 144 ms. QTc interval was slightly prolonged at 484 ms. There is borderline right axis deviation at 105. There is a right bundle branch block pattern noted. There are nonspecific ST-T wave changes noted. Prior EKG tracings: not available for review Prior: No Prior Management Discussion w/another healthcare provider: Hospitalist and Media Law Faculty Member Treatment and Re-Evaluation Narrative: Patient was advised [...] pressure reading Disposition Disposition: Acute Care Hospital [facility] What to do if you have Problems For any increased pain, shortness of breath, bleeding, nausea or vomiting, chestpain, or any unexpected problems, contact your Primary Care Provider. Call [facility] ([phone]) or report to the closest Emergency Room. Call 911 if necessary. 07/25/24 <Electronically signed by Jacobo Moya DO> Cosigner Signature (if applicable): CC: Dr. Kam Ocampo Sr., DO ~ Signed [facility] Work Phone: 1(436) 399-711206-17-2025 History and physical note Author Hayden Diaz [facility] Note Date/Time July 25, 2024 10:2 0pm [facility] Medical Records Department [address] [place] [address] H&P Exam - Hospitalist 07/25/24 1651 MR#: [id number] Acct: [id number] Name: DERICKKATHERINE N Rep #:[id number] : 1935 89 From: Hayden malik DO PCP: Dr. Kam Ocampo Sr., DO Status:A DM IN Location: MS3 SN500-9 HPI - General General Date of Admission: 07/25/24 Date of Service: 07/25/24 Chief Complaint: Fall with right hip pain HPI Narrative KATHERINE JUDGE, is a 89 F who presented to [facility] ED on 07/25/2024 with right hip pain after a fall. Patient has history of chronic debility, lives at the [facility]. She had a fall today where shewas [...] currently. Will be admitted for further management. [facility] Medical History (Updated 07/25/24 @ 22:18 [...] % (Auto) 69.2, Lymph % (Auto) 22.9, Greenwood % (Auto) 6.2, Eos % (Auto) 0.9, [...] of the proximal right femur. Reading Location: [facility]1 Chest X-Ray 07/25/24 15:15 IMPRESSION: Cardiomegaly and vascular congestion with atelectasis at the lung bases. Reading Location: [facility] Assessment & Plan Assessment/Plan (1) Closed intertrochanteric fracture of right hip: QUALIFIERS: Encounter type: initial encounter Fracture alignment: displaced Qualified Code(s): S72.141A - Displaced intertrochanteric fracture of right femur, initial encounter for closed fracture (2) Acute on chronic heart failure with preserved ejection fraction (HFpEF): PLAN: Plan Patient is an 89-year-old female who presented to [facility] ED on 07/25/2024 with right hip pain after a mechanical fall. 1. Right hip fracture ? Admit under inpatient status to [facility]. Orthopedic surgery consulted. PT/OT/case management consulted. Presented [...] PT/OT/case management consulted as above. Lives in [facility], will likely be okay to return there on discharge. 5. Mild chronic anemia ? Hemoglobin stable at baseline 10-11 on admission. 6. Anxiety/depression ? Stable. Continue home bupropion and mirtazapine. 7. GERD ? Continue home PPI. DVT prophylaxis: SCDs CODE STATUS: DNR CCA, DNI Expected disposition: Likely back to halfway, D Total clinical time spent by myself addressing the patient's medical issues, reviewing all the data, and collaborating with patient's care team: 75 minutes. Charges/Coding Visit Charges Inpatient E&M: 05375 Init Hosp L3 07/25/24 2220 <Electronically signed by Hayden Diaz DO> Cosigner Signature (if applicable): CC: Dr. Hayden Diaz, DO; Dr. Kam Ocampo Sr., DO~ Signed [facility] Work Phone: 1(176) 572-511006-16-2025 Discharge summary [facility] Medical Records Department [address] [place] [address] Emergency Department Summary 07/25/24 MR#: [id number] Acct: [id number] Name: KATHERINE JUDGE Rep #:[id number] : 1935 89 From: Jacobo Palmer PCP: Dr. Kam Ocampo Sr., DO Status:A DM IN Location: [facility] WN209-3 HPI HPI - Fall History of Present [...] of consciousness. Patient denies any other injuries. [facility] Medical History (Updated 07/25/24 @ 17:08 by [...] % (Auto) 69.2 Lymph % (Auto) 22.9 Greenwood % (Auto) 6.2 Eos % (Auto) 0.9 [...] of the proximal right femur. Reading Location: [facility] Chest X-Ray 07/25/24 15:15 IMPRESSION: Cardiomegaly and vascular congestion with atelectasis at the lung bases. Reading Location: [facility] Portable 1 view chest x-ray was [...] normal sinus rhythm with arate of 66. RI interval was normal at 170 ms. QRS interval was prolonged at 144 ms. QTc interval was slightly prolonged at 484 ms. There is borderline right axis deviation at 105. There is a right bundle branch block pattern noted. There are nonspecific ST-T wave changes noted. Prior EKG tracings: not available for review Prior: No Prior Management Discussion w/another healthcare provider: Hospitalist and Media Law Faculty Member Treatment and Re-Evaluation Narrative: Patient was advised [...] pressure reading Disposition Disposition: Acute Care Hospital [facility] What to do if you have Problems For any increased pain, shortness of breath, bleeding, nausea or vomiting, chestpain, or any unexpected problems, contact your Primary Care Provider. Call [facility] ([phone]) or report tothe closest Emergency Room. Call 911 if necessary. 07/25/24 0350 Cosigner Signature (if applicable): CC: Dr. Kam Ocampo Sr., DO ~ Signed [facility]06-16-2025 History and physical note [facility] Medical Records Department [address] [place] [address] H&P Exam - Hospitalist 07/25/24 1651 MR#: [id number] Acct: [id number] Name: KATHERINE JUDGE Rep #:[id number] : 1935 89 From: Hayden malik DO PCP: Dr. Kam Ocampo Sr., Status:A DM IN Location: [facility] JX702-4 HPI - General General Date of Admission: 07/25/24 Date of Service: 07/25/24 Chief Complaint: Fall with right hip pain HPI Narrative KATHERINE JUDGE, is a 89 F who presented to [facility] ED on 07/25/2024 with right hippain after a fall. Patient has history of chronic debility, lives at the [facility]. She had a fall today where shewas [...] currently. Will be admitted for further management. [facility] Medical History (Updated 07/25/24 @ 22:18 [...] % (Auto) 69.2, Lymph % (Auto) 22.9, Greenwood % (Auto) 6.2, Eos % (Auto) 0.9, [...] of the proximal right femur. Reading Location: [facility] Chest X-Ray 07/25/24 15:15 IMPRESSION: Cardiomegaly and vascular congestion with atelectasis at the lung bases. Reading Location: [facility] Assessment & Plan Assessment/Plan (1) Closed intertrochanteric fracture of right hip: QUALIFIERS: Encounter type: initial encounter Fracture alignment: displaced Qualified Code(s): S72.141A - Displaced intertrochanteric fracture of right femur, initial encounter for closed fracture (2) Acute on chronic heart failure with preserved ejection fraction (HFpEF): PLAN: Plan Patient is an 89-year-old female who presented to [facility] ED on 07/25/2024 with right hip pain after a mechanical fall. 1. Right hip fracture ? Admit under inpatient status to [facility]. Orthopedic surgery consulted. PT/OT/case management consulted. Presented [...] PT/OT/case management consulted as above. Lives in [facility], will likely be okay to return there on discharge. 5. Mild chronic anemia ? Hemoglobin stable at baseline 10-11 on admission. 6. Anxiety/depression ? Stable. Continue home bupropion and mirtazapine. 7. GERD ? Continue home PPI. DVT prophylaxis: SCDs CODE STATUS: DNR CCA, DNI Expected disposition: Likely back to halfway, TBD Total clinical time spent by myself addressing the patient's medical issues, reviewing all the data, and collaborating with patient's care team: 75 minutes. Charges/Coding Visit Charges Inpatient E&M: 68929 Init Hosp L3 07/25/242 Cosigner Signature (if applicable): CC: Dr. Hayden Diaz, DO; Dr. Kam Ocampo Sr., DO~ Signed [facility]06-16-2025 Radiology Diagnostic study note [facility] Imaging Services [address] [place], [place] [address] Femur Min 2 Views MR#: [id number] Acct: [id number] Name: KATHERINE JUDGE Rep #: [id number] : 1935 F 89 From: Brannon Bland MD PCP: Dr. Kam Ocampo Sr., DO Status: A DM IN Study:Femur Min 2 Views Date of Exam: Exam# [id number] Ordering Dr: Thanh Mclaughlin DO PROCEDURE: FEMUR MIN 2 VIEWS 07/25/2024 REASON FOR EXAM: FRACTURE SURGERY PLANNING TECHNIQUE: FEMUR MIN 2 VIEWS COMPARISON: 07/25/2024 radiograph. FINDINGS: Right knee arthroplasty. Nondisplaced intertrochanteric fracture of the right femur. Degenerative changes of the right hip. RAD/Femur Min 2 Views IMPRESSION: Nondisplaced intertrochanteric fracture. Reading Location: [id number] CC: Dr. Kam Ocampo Sr., ; Dr. Thanh Mclaughlin DO ~ Shaper Operator: Signed [facility]06-16-2025 Consult note Author Thanh Mclaughlin [facility] Note Date/Time July 25, 2024 5:10 pm [facility] Medical Records Department [address] [place] [address] Consultation 07/25/24 1706 MR#: [id number] Acct: [id number] Name: KATHERINE JUDGE Rep #:[id number] : 1935 89 From: Thanh Mclaughlin DO [...] years ago with Dr. Malcom Herron in [facility]. She is on Plavix [facility] Medical History (Updated 07/25/24 @ 17:08 [...] her son who is her power of assistant district attorney Appearance: cooperative Extremity Extremity Narrative: Exquisitely [...] % (Auto) 69.2, Lymph % (Auto) 22.9, [place] % (Auto) 6.2, Eos % (Auto) 0.9, [...] of the proximal right femur. Reading Location: [facility] Chest X-Ray 07/25/24 15:15 IMPRESSION: Cardiomegaly and vascular congestion with atelectasis at the lung bases. Reading Location: [facility]1 07/25/24 1710 <Electronically signed by Thanh Mclaughlin DO> Cosigner Signature (if applicable): CC: Dr. Kam Ocampo Sr., DO~ Signed [facility] Work Phone: 1(220) 316-663906-16-2025 Evaluation note* Diagnosis Onset Date Resolution Status Admit Date 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) acute July 25, 2024 4:51pm Closed intertrochanteric fra cture of right hip acute July 25, 2024 4:51pm Elevated blood pressure reading acut e July 25, 2024 4:51pm Fall acute July 25 4:51pm [facility] Work Phone: 1(643) 214-415306-16-2025 Evaluation note* Diagnosis Onset Date Resolution Status [...] 5:20pm GI bleed acute August 02 5:20pm [facility] Work Phone: 1(855) 994-282006-16-2025 Evaluation note* Diagnosis Onset Date Resolution Status [...] Jul 5:20pm Anemia inactive August 02 5:20pm [facility] Work Phone: 1(897) 371-949406-16-2025 Evaluation note* Diagnosis Onset Date Resolution Status [...] Orthopedic aftercare acute August 17, 2024 8:49am [facility] Work Phone: 1(937) 951-453506-16-2025 Consult note [facility] Medical Records Department [address] [place] [address] Consultation 07/25/24 1706 MR#: [id number] Acct: [id number] Name: KATHERINE JUDGE Wilber Rep #:[id number] : 1935 89 From: Thanh Mclaughlin DO [...] years ago with Dr. Malcom Herron in [facility]. She is on Plavix [facility] Medical History (Updated 07/25/24 @ 17:08 [...] her son who is her power of assistant district attorney Appearance: cooperative Extremity Extremity Narrative: Exquisitely [...] % (Auto) 69.2, Lymph % (Auto) 22.9, [place] % (Auto) 6.2, Eos % (Auto) 0.9, [...] of the proximal right femur. Reading Location: [facility] Chest X-Ray 07/25/24 15:15 IMPRESSION: Cardiomegaly and vascular congestion with atelectasis at the lung bases. Reading Location: [facility]-1 07/25/24 1710 Cosigner Signature (if applicable): CC: Dr. Kam Ocampo Sr., DO~ Signed [facility]06-16-20[facility] Radiology Diagnostic study note [facility] Imaging Services [address] [place], [place] [address] Chest 1 View (Portable) MR#: [id number] Acct: [id number] Name: KATHERINE JUDGE Rep #: [id number] : 1935 F 89 From: Reyes Haynes MD PCP: Dr. Kam Ocampo Sr., DO Status: R EG ER Study:Chest 1 View (Portable) Date of Exam: 07/25/24 Exam# [id number] Ordering Dr: Jacobo Moya DO PROCEDURE: CHEST [...] atelectasis at the lung bases. Reading Location: [place] [address] CC: Dr. Kam Ocampo Sr., DO; Dr. Jacobo oMya, ~ Shaper Operator: Signed [facility]06-16-2025 Radiology Diagnostic study note [facility] Imaging Services [address] [place] [address] HIP, UNI W/ Pelvis 2-3 Views MR#: [id number] Acct: [id number] Name: KATHERINE JUDGE Rep #: [id number] : 1935 F 89 From: Reyes Haynes MD PCP: Dr. Kam Ocampo Sr., DO Status: R EG ER Study:HIP, UNI W/ Pelvis 2-3 Views Date of Ex am: 07/25/24 Exam# [id number] Ordering Dr: Jacobo Moya DO PROCEDURE: HIP, [...] of the proximal right femur. Reading Location: [place] [address] CC: Dr. Kam Ocampo Sr., DO; Dr. Jacobo Moya DO ~ Shaper Operator: Signed [facility]09-28-2023 Discharge summary Author Yandelkushal Matute [facility] November 06, 2022 8:16pm Note Date/Time November 06, 2022 8:17pm [facility] Medical Records Department [address] [place] [address] Emergency Department Summary 11/06/22 MR#: [id number] Acct: [id number] Name: KATHERINE JUDGE Rep #:[id number] : 1935 87 From: Yandel Matute DO [...] concern for TIA. Patient is on Plavix. 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 Call [facility] ([phone]) or report to the closest Emergency Room. Call 911 if necessary. 11/06/222015 <Electronically signed by Yandel Matute DO> Cosigner Signature (if applicable): CC: Dr. Kam Ocampo Sr., ~ Signed [facility] Work Phone: 1(530) 464-912809-23-2023 Progress note Author Neymar Cunningham [facility] November 01, 2022 2:44pm Note Date/Time November 01, 2022 7:47am [facility] Medical Records Department [address] [place] [address] Progress Note - Hospitalist 11/01/2245 MR#: [id number] Acct: [id number] Name: KATHERINE JUDGE Rep #:[id number] : 1935 87 From: Neymar Herrera PCP: Dr. aKm Ocampo Sr., Status:A DM IN Location: ICU [...] 22:21 EDT Reading Location ID and State: [address] [place] [address] Tel [phone], Service support , Physical Exam Narrative Seen [...] CAD, hypertension and depression who presented to [facility] ED from halfway on 10/30/2022 for expressive aphasia and dysarthria. [...] of ASD; bubble contrast study negative for [id number]-ys-tgdy interatrial shunt. LA severely enlarged. EF 70%. MRI brain reports no acute or subacute ischemic infarct or acute intracranial abnormality. SOC consult ordered 2. Chronic debility Patient's family notes that she was recently hospitalized at an outside hospitalfor medical concerns unrelated to current concern for acute CVA. She was discharged to a [facility] facility, with plans for long-term placement in a halfway after that. Has been residing at the [facility], and family has been happy with this arrangement. ? PT/OT/case management consulted. Fall precautions in place. Chronic medical conditions: ? Hypertension, history of CAD: Continue home metoprolol, isosorbide mononitrate, Lasix, potassium supplement, doxazosin. ? Depression: Continue home bupropion, mirtazapine at night. DVT prophylaxis: SCDs CODE STATUS: DNR CCA, DO NOT INTUBATE Expected disposition: Long-term care facility Charges/Coding Visit Charges Inpatient E&M: 88941 Subs Hosp L3 11/01/22 1444 <Electronically signed by Neymar Cunningham MD> Cosigner Signature (if applicable): CC: ~ Signed [facility] Work Phone: 1(891) 732-886909-22-2023 Progress note Author Neymar Cunningham [facility] October 31, 2022 12:03pm Note Date/Time October 31, 2022 11:13am [facility] Medical Records Department [address] [place] [address] Progress Note - Hospitalist 10/31/22 1111 MR#: [id number] Acct: [id number] Name: KATHERINE JUDGE Rep #:[id number] : 1935 87 From: Neymar Herrera PCP: [...] % (Auto) 55.1, Lymph % (Auto) 33.7, [place] % (Auto) 8.1, Eos % (Auto) 2.1, [...] Clarity Clear, Urine pH 8.0, Ur Specific [place] 1.010, Urine Protein Negative, Urine Glucose (UA) [...] CAD, hypertension and depression who presented to [facility] ED from halfway on 10/30/2022 for expressive aphasia and dysarthria. [...] acute CVA. She was discharged to a [facility] facility, with plans for long-term placement in a halfway after that. Has been residing at the [facility], and family has been happy with this arrangement. ? PT/OT/case management consulted. Fall precautions in place. Chronic medical conditions: ? Hypertension, history of CAD: Continue home metoprolol, isosorbide mononitrate, Lasix, potassium supplement, doxazosin. ? Depression: Continue home bupropion, mirtazapine at night. DVT prophylaxis: SCDs CODE STATUS: DNR CCA, DO NOT INTUBATE Expected disposition: Long-term care facility Charges/Coding Visit Charges Inpatient E&M: 03303 Subs Hosp L3 10/31/22 1203 <Electronically signed by Neymar Cunningham MD> Cosigner Signature (if applicable): CC: ~ Signed [facility] Work Phone: 1(831) 100-277009-22-2023 Consult note Author Ajay Nieves [facility] October 31, 2022 9:32am Note Date/Time October 31, 2022 7:12am [facility] Medical Records Department [address] [place] [address] Consultation - Food Processing Chemist 10/31/22 0711 MR#: [id number] Acct: [id number] Name: KATHERINE JUDGE Rep #:[id number] : 1935 87 From: Ajay Nieves DO [...] medicationsas indicated. This note was generated with [employer] dictation software. It may contain incorrectwords, spelling, [...] depression. She was currently residing at the [facility]. On presentation to the emergency department, [...] medical intensive care unit for further management. 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 Hayden Diaz, DO; Dr. Kam Ocampo Sr., DO~ Signed [facility] Work Phone: 1(235) 651-323909-22-2023 History and physical note Author Hayden Diaz [facility] October 31, 2022 3:59am Note Date/Time October 30, 2022 9:19pm [facility] Medical Records Department [address] [place] [address] H&P Exam - Hospitalist 10/30/222115 MR#: [id number] Acct: [id number] Name: KATHERINE JUDGE Rep #:[id number] : 1935 87 From: Hayden malik DO PCP: Dr. Kam Ocampo Sr., Status:A DM IN Location: ICU CVICU20 3-1 HPI - General General Date of Admission: 10/30/22 Date of Service: 10/30/22 Chief Complaint: Acute CVA HPI Narrative KATHERINE JUDGE, is a 87 F with history of chronic debility, TIA, CAD, hypertension and depression who [facility] [facility] ED from halfway on 10/30/2022 as a stroke alert. Patient [...] for hospitalization. She was discharged to the [facility] with plan for long-term placement in [...] head/neck was negative for any acute pathology. 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 1. [...] in her speech. ? Admit to ICU. Food Processing Chemist consulted. Patient will require close monitoring over [...] acute CVA. She was discharged to a [facility] facility, with plans for long-term placement in a halfway after that. Has been residing at the [facility], and family has been happy with [...] 55 minutes. Charges/Coding Visit Charges Inpatient E&M: 90336 Init Hosp L2 10/31/22 0359 <Electronically signed by Hayden Diaz DO> Cosigner Signature (if applicable): CC: Dr. Hayden Daiz, DO; Dr. Kam Ocampo Sr., DO~ Signed [facility] Work Phone: 1(623) 319-478609-22-2023 Discharge summary Author Amalia [facility] October 31, 2022 12:06am Note Date/Time October 30, 2022 8:12pm [facility] Medical Records Department [address] [place] [address] Emergency Department Summary 10/30/22 MR#: [id number] Acct: [id number] Name: KATHERINE JUDGE Rep #:[id number] : 1935 87 From: Amalia Donahue DO PCP: Dr. Kam Ocampo Sr., DO Status:A DM IN Location: ICU CVICU20 3-1 HPI History of Present Illness Chief Complaint: Stroke Alert Detail of Chief Complaint: Stroke Informant: patient, family and EMS Narrative Narrative: Patient presents to the emergency department via EMS from halfway. Patientwas last seen well about 1840 5 PM. When she was next checked on she had difficulty with speech and seemed to be confused. Patient has history of prior TIA and history of coronary artery disease as well as hypertension. Patient recently was taken off her Plavix. Patient denies any chest pain. She denies headache. She has not had any falls or injuries. 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 Calculus of [...] patient has no unwell at 1820 per halfway staff as I called personally to discuss [...] with patient's son who is power of workers compensation attorney and also with patient and they [...] % (Auto) 55.1 Lymph % (Auto) 33.7 Greenwood % (Auto) 8.1 Eos % (Auto) 2.1 [...] 30-74 minutes, Including time spent:,Discussing w/Patient &/or Family/Mechanic Senior, Discussing w/Consultants, ArrangingAdmission or Transfer, Performing Direct Patient Care at Bedside and - (30 minutes) Discharge Plan Dx/Rx/DC Orders Clinical Impression: Acute CVA (cerebrovascular accident), History of CAD (coronary artery disease),Hypertension Disposition Disposition: Acute Care Hospital [facility] Discharge Date/Time: 10/30/22 22:27 What to do if you have Problems For any increased pain, shortness of breath, bleeding, nausea or vomiting, chestpain, or any unexpected problems, contact your Primary Care Provider. Call [facility] ([phone]) or report to the closest Emergency Room. Call 911 if necessary. 10/31/22 0006 <Electronically signed by Amalia Donahue DO> Cosigner Signature (if applicable): CC: Dr. Kam Ocampo Sr., DO ~ Signed [facility] Work Phone: 1(458) 980-995709-07-2023 History of Present illness Narrative* Sophia Mroeira RN - 10/16/2022 1:32 PM EDT Report called [facility]. Nurse was informed of the supervisor slate splitting time of 1400. * Eder Monterroso MD - 10/15/2022 4:14 PM EDT Images from the original note were not included. Hospitalist Progress Note 10/15/2022 [phone]: Please secure chat me for patient care issues. [phone]: Please secure chat [facility] Hospitalist for any issues. Subjective: Admit Date: 10/10/2022 PCP: Saida Gardiner Room#: B2-259/B2-259 A Interval History: Patient is lying on the bed, abdominal pain continues to improve. Denies any nausea or vomiting. Tolerating p.o. diet well. Diarrhea also improved. No other significant overnight issues. Adult diet Regular; Low Fiber @YLMT5GNYYXI@ 24HR INTAKE/OUTPUT: Intake/Output Summary (Last 24 hours) [...] Wt 105 lb 8 oz (47.9 kg) AwY581% BMI 20.60 kg/m Pulse Ox: SpO2 Av.5 [...] ordered. PT OT evaluated the patient recommended [facility] facility. -am labs, replace lytes prn -increase activity -DVT prophylaxis: [] Lovenox [] Heparin [] SCDs [x] Encourage ambulation [] Already on Anticoagulation Anticipated Discharge - Date - tomorrow - Location -[facility]p facility - Pending the following -clinical improvement/placement Total time spent (which include face to face and non face to face encounters) : 25 minutes Toxic drug monitoring/narrow therapeutic index drug monitoring : # Drug name : # Route administered : # Method of monitoring : Extended Emergency Contact Information Primary Emergency Contact: Ganga Judge Mobile Relation: Son Preferred language: Malaysian Utility Service Worker needed? No Eder Monterroso MD Division of Hospitalist Medicine [employer] [facility] PAGER: Epic chat * Brittni Javed, RD [...] assess Fluid Accumulation: No significant fluid accumulation Pigment Furnace Tender Strength: Not Performed Nutrition Assessment: Pt is very pleasant, appeared in no distress this afternoon with visitor at bedside. Pt's diet was advanced to solids today- GI [place], low fiber. Pt reported that she ordered [...] (kg): 49.4 kg Total Energy Requirements (kcals/day): 4539-6682 (30-35 kcal/kg CBW) Weight Used for Protein [...] 110# UBW) % Weight Change (Calculated): -4.5 [place] Body Weight (lbs) (Calculated): 100 lbs [place] Body Weight (Kg) (Calculated): 45 kg % [place] Body Weight (Calculated): 105 % BMI (kg/m2) [...] Oral Nutrition Supplement Brittni Javed RD Contact: *[phone] or via Secure Chat * Hayden Steen [...] Wt 47.9 kg (105 lb 8 oz) NtS213% BMI 20.60 kg/m TEMPERATURE: Current - Temp: [...] were not included. Hospitalist Progress Note 10/14/2022 [phone]: Please secure chat me for patient care issues. [phone]: Please secure chat [facility] Hospitalist for any issues. Subjective: Admit Date: 10/10/2022 PCP: Saida Gardiner Room#: B2-259/B2-259 A Interval History: Patient is lying on the bed, abdominal pain is better. Complaining of multiple episodes of diarrhea. Denies any nausea or vomiting. No other significant overnight issues. Adult diet Full liquid @UDXT4KNJPLL@ 24HR INTAKE/OUTPUT: No intake or output data [...] ordered. PT OT evaluated the patient recommended [facility] facility. -am labs, replace lytes prn -increase activity -DVT prophylaxis: [] Lovenox [] Heparin [] SCDs [x] Encourage ambulation [] Already on Anticoagulation Anticipated Discharge - Date -1 to 2 days - Location -[facility] facility - Pending the following -clinical improvement/placement Total time spent (which include face to face and non face to face encounters) : 25 minutes Toxic drug monitoring/narrow therapeutic index drug monitoring : # Drug name : # Route administered : # Method of monitoring : Extended Emergency Contact Information Primary Emergency Contact: Ganga Judge Mobile Relation: Son Preferred language: Malaysian Utility Service Worker needed? No Eder Monterroso MD Division of Hospitalist Medicine Acute care [facility] PAGER: Epic chat * Laura Brown OT - 10/14/2022 11:34 AM EDT Occupational Therapy Facility/Department: 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 No true LOB noted however pt demo [...] ADLs, and min A with toileting at [facility] d/t fatigue level. [facility] mod A for threading BLE d/t [...] were not included. Hospitalist Progress Note 10/13/2022 [phone]: Please page me ([phone]) for patient care issues. [phone]: Please page [facility] Hospitalist for any issues. Subjective: Admit Date: [...] - 10/14 vs 10/15 - Location - - Pending the following - improvement in abdominal pain, regular Bowel movements. PNA workup, wean O2. Auth at Toxic drug monitoring/narrow therapeutic index drug monitoring : # Drug name : # Route administered : # Method of monitoring : Extended Emergency Contact Information Primary Emergency Contact: Ganga Judge Mobile Relation: Son Preferred language: Malaysian Utility Service Worker needed? No Ranjeet Tobar DO Division of Hospitalist Medicine Inpatient Medical Services[facility] PAGER: Epic chat * Santa Del Rosario, PT - 10/12/2022 2:48 PM EDT Physical Therapy Facility/Department: [address] Physical Therapy Initial Evaluation NAME: Katherine Judeg : 1935 Date of Service: 10/12/2022 Discharge [...] were not included. Hospitalist Progress Note 10/12/2022 [phone]: Please page me ([phone]) for patient care issues. [phone]: Please page [facility] Hospitalist for any issues. Subjective: Admit Date: [...] Ganga Judge Mobile Relation: Son Preferred language: Malaysian Utility Service Worker needed? No Ranjeet Tobar DO Division of Hospitalist Medicine Inpatient Medical Services/[facility] PAGER: Epic chat * Kiana Wagner RD [...] assess Fluid Accumulation: No significant fluid accumulation Pigment Furnace Tender Strength: Not Performed Nutrition Assessment: 87 year old woman with PMHx: CAD, colitis, hypothyroidism. Presented to [facility] with worsening abdominal pain (achy [...] (kg): 49.4 kg Total Energy Requirements (kcals/day): 3636-8349 (30-35 kcal/kg CBW) Weight Used for Protein [...] 110# UBW) % Weight Change (Calculated): -4.5 [place] Body Weight (lbs) (Calculated): 100 lbs [place] Body Weight (Kg) (Calculated): 45 kg % [place] Body Weight (Calculated): 105 % BMI (kg/m2) [...] to determine Kiana Wagner RDN, LDN, Contact: *[phone] * Ron Vines DO - 10/12/2022 10:20 [...] 10/12/2022 10:20 AM * Sylvain Mirza, [facility] - 10/12/2022 8:06 AM EDT Pharmacy Vancomycin Consult Follow-Up Note Non-CABINETMAKER MAINTENANCE Patients Current Dosinmg q24h CREATININE Date Value [...] note were not included. Hospitalist Progress Note 10/11/20226999222-7286: Please page me ([phone]) for patient care issues. [phone]: Please page [facility] Hospitalist for any issues. Subjective: Admit Date: [...] CAD (coronary artery disease) Hypothyroidism Ischemic colitis ([facility]/HCC) LABS: CBC: Recent Labs 10/10/22 1454 10/11/22 [...] Ganga Judge Mobile Relation: Son Preferred language: Malaysian Utility Service Worker needed? No Ranjeet Tobar DO Division of Hospitalist Medicine Inpatient Medical Services/[facility] PAGER: Epic chat * Andreia Hay RN - 10/11/2022 9:18 AM EDT Attempted two IV starts, call CABINETMAKER MAINTENANCE to place for antibiotics. ] * Sylvain Mirza RPh - 10/11/2022 7:03 AM EDT Pharmacy Vancomycin Consult Follow-Up Note Non-CABINETMAKER MAINTENANCE Patients Current Dosinmg x1 -> 750mg q24hr [...] and continue to follow. documented in this [facility]09-07-2023 Hospital Discharge instructions* Discharge Instr [...] Ganga Judge Mobile Relation: Son Preferred language: Malaysian Utility Service Worker needed? No Past Surgical History: Past Surgical [...] assistance Toileting Minimal assistance Feeding Minimal assistance Practical Nursing Teacher Minimal assistance Med Delivery yes Wound Care [...] Score: @READMISSIONRISKDETAILS@ Discharging to Facility/ Agency Name: [facility] Address: [address] [place], [place] [id number] Dialysis Facility (if applicable) Name: Address: Dialysis Schedule: Phone: Fax: Asset Card Clerk/Chute Loader signature: ICIAN SECTION Prognosis: good Condition at Discharge: stable Rehab Potential (if transferring to Rehab): good Recommended Labs or Other Treatments After Discharge: continue prn Bowel regime Physician Certification: I certify the above information and transfer of Katherine Judge is necessaryfor the continuing treatment of the diagnosis listed and that she requires mcfp facilityfor less than 30 days. Update Admission H&P: No change in H&P PHYSICIAN SIGNATURE: documented in this [facility]09-07-2023 Note* Care Coordination - BRANDON Alvarez - 10/16/2022 11:52 AM EDT Dc to [facility] this afternoon at 2:00. [facility] to transport. Ambulancetransport form completed. Careport messaged [facility] with the dc time.Spoke with patients son to discuss dc arrangements and lemon picker time. Report number provided to the bedside nurse. [id number] Miscellaneous Notes* Care Coordination - BRANDON Alvarez - 10/16/2022 11:52 AM EDT Dc to [facility] this afternoon at 2:00. [facility] to transport. Ambulancetransport form completed. Careport messaged [facility] with the dc time.Spoke with patients son to discuss dc arrangements and lemon picker time. Report number provided to the bedside nurse. * Care Coordination - Unknown Case Management - 10/16/2022 10:35 AM EDT Patient Choice Patient Name: KATHERINE JUDGE Date of : 1935 All Providers Sent Referral Name: [facility] Phone: [phone] Address: [address] [place] [address] [facility]: [phone] Address: [address] [place] [address] Name: [facility] Address: [address] [place] [address] * Care Coordination - Stef Cox - 10/16/2022 8:51 AM EDT Discharge med list transmitted to -[facility] via Careport per TCC request. 7000 was entered into [facility] for the SNF- Facility is aware. * Care Coordination - Joy Longo RN - 10/16/2022 8:20 AM EDT Images from the original note were not included. Care Management Progress Note Pt has discharge order. Pt to transfer to [facility]. [facility] notified to complete 7000 & to send discharge paperwork. SENIOR CORE JAVA DEVELOPER notified to set up transport. [facility] notified of discharge. Discharge Milestones and Delays [...] 3:30 PM EDT Spoke with Lesley at [facility] & they can accept pt on 10/16. Notified pt & she asked TCC to follow up with her son. 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 * Care Coordination - Stef Cox - 10/15/2022 11:37 AM EDT Referral placed to SNF- [facility] sent to SNF- [facility] via Careport per TCC request. Await review and response regarding ability to accept. TCC notified. * Care Coordination - Joy Longo RN - 10/15/2022 11:35 AM EDT Received call from pt son & they would like referral to [facility]. BIOMETRICS EXPERIMENTALIST tasked to make referral. * Care Coordination - Joy Longo RN - 10/15/2022 10:29 AM EDT Images from the original note were not included. Care Management Progress Note Pt remains on 2E due to abd pain-improving. Constipation-resolved. Follow up CXR for moderate to large pleural effusions. Met with pt to discuss SNF choices. Pt choices are [facility]. Notified BIOMETRICS EXPERIMENTALIST to make referrals. Await response from SNF [...] 10:26 AM EDT Referral placed to SNF- [facility] via Careport per TCC request. Await review and response regarding ability to accept. TCC notified. * Care Coordination - Roberta Whitney RN - 10/14/2022 4:12 PM EDT Care Managment Initial Assessment Date: 10/14/2022 Patient Name: Katherine Judge : 1935 Patient Information Source of Information: Patient Cognition/Language: WFL - Within Functional Limits Permission given to speak with patient distribution sales representative/caregiver as indicated: Yes (Ganga Judge, son, ) Confirmation of Payer with patient/family: Yes Payer Name: Medicare : No (Spouse is a [place]. Made referral to [employer] [employer]) Confirmation of [...] Additional Information: Chart reviewed. Patient admitted to [facility] for treatment of Proctocolitis. Full liquid diet. PT/OT recommends SNF. Met with patient at bedside. Explained role. She is very pleasant. 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 Reports her son is helpful and [...] continue current care plan. documented in this [facility]09-07-2023 Note* Care Coordination - Unknown Case Management - 10/16/2022 10:35 AM EDT Patient Choice Patient Name: KATHERINE JUDGE Date of : 1935 All Providers Sent Referral Name: [facility] Phone: [phone] Address: [address] [place] [address] Name: [facility] Phone: [phone] Address: [address] [place] [address] Name: [facility], [employer]. Address: [address] [place] [address] [facility] [id number] NoteCare Management Progress Note Pt has discharge order. Pt to transfer to [facility]. [facility] notified to complete 7000 & to send discharge paperwork. SENIOR CORE JAVA DEVELOPER notified to set up transport. [facility] notified [...] PM Length of Stay (Days): 6 GMLOS: 2[facility]-07-[facility] Note* Care Coordination - Stef Cox - 10/16/2022 8:51 AM EDT Discharge med list transmitted to -[facility] via Careport per TCC request. 7000 was entered into [facility] for the SNF- Facility is aware. [facility] [id number] Note* Care Coordination - Joy Longo RN - 10/16/2022 8:20 AM EDT Images from the original note were not included. Care Management Progress Note Pt has discharge order. Pt to transfer to [facility]. [facility] notified to complete 7000 & to send discharge paperwork. SENIOR CORE JAVA DEVELOPER notified to set up transport. [facility] notified [...] Length of Stay (Days): 6 GMLOS: 2.6 [facility] HospitalKdyios19-25-1515 Hospital course Narrative* Eder Monterroso MD - [...] baseline PT OT evaluated the patient recommended m[facility]p facility. Discharged in stable condition CONSULTANTS: GI [...] Your Medications These medications were sent to [facility] [address] [place] [address] Hours: Thursday to Thursday 10 am to 6 pm polyethylene glycol (PEG) 3350 17 g packet simethicone 80 MG chewable tablet DIET: Adult diet Regular; Low Fiber ACTIVITY: Up with assist COMPLEXITY OF FOLLOW UP: [] Moderate Complexity: follow up within 7-14 calendar days (99780) [] Severe Complexity: follow up within 7 calendar days (97309) FOLLOW UP TESTING, PENDING RESULTS OR REFERRALS [...] MD 10/16/2022, 8:14 AM documented in this [facility]09-06-2023 NoteHospitalist Progress Note 10/15/2022 [phone]: Please secure chat me for patient care issues. [phone]: Please secure chat [facility] Hospitalist for any issues. Subjective: Admit Date: 10/10/2022 PCP: Saida Gardiner Room#: B2-259/B2-259 A Interval History: Patient is lying on the bed, abdominal pain continues to improve. Denies any nausea or vomiting. Tolerating p.o. diet well. Diarrhea also improved. No other significant overnight issues. Adult diet Regular; Low Fiber @ZRYC6XNPUUD@ 24HR INTAKE/OUTPUT: Intake/Output Summary (Last 24 hours) [...] ordered. PT OT evaluated the patient recommended [facility]p facility. -am labs, replace lytes prn -increase activity -DVT prophylaxis: [] Lovenox [] Heparin [] SCDs [x] Encourage ambulation [] Already on Anticoagulation Anticipated Discharge - Date - tomorrow - Location -mcfp facility - Pending the following -clinical improvement/placement Total time spent (which include face to face and non face to face encounters) : 25 minutes Toxic drug monitoring/narrow therapeutic index drug monitoring : # Drug name : # Route administered : # Method of monitoring : Extended Emergency Contact Information Primary Emergency Contact: Ganga Judge Mobile Relation: Son Preferred language: Malaysian Utility Service Worker needed? No Eder Monterroso MD Division of Hospitalist Medicine Acute care solutions PAGER: [employer] [facility] [id number] Note* Care Coordination - Joy Longo RN - 10/15/2022 3:30 PM EDT Spoke with Lesley at [facility] & they can accept pt on 10/16. Notified pt & she asked TCC to follow up with her son. 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 [facility] HospitalLputhz22-13-5665 NoteReferral placed to [facility] sent to [facility] via Careport per TCC request. Await review and response regarding ability to accept. TCC notified. [facility]09-06-2023 NoteReceived call from pt son & they would like referral to [facility]. BIOMETRICS EXPERIMENTALIST tasked to make referral. [facility]09-06-2023 NoteProgress Note SUBJECTIVE: No acute events [...] based on abdominal discomfort and tolerating diet [facility] [id number] NoteCare Management Progress Note Pt remains on 2E due to abd pain-improving. Constipation-resolved. Follow up CXR for moderate to large pleural effusions. Met with pt to discuss SNF choices. [facility] Notified BIOMETRICS EXPERIMENTALIST to make referrals. Await response from SNF [...] PM Length of Stay (Days): 5 GMLOS: 2.6[facility]09-06-[address] [facility] via Careport per TCC request. Await review and response regarding ability to accept. TCC notified. [facility]09-06-2023 Note* Care Coordination - Stef Cox - 10/15/2022 11:37 AM EDT [facility] sent to [facility] via Careport per TCC request. Await review and response regarding ability to accept. TCC notified. [facility] [id number] Note* Care Coordination - Joy Longo RN - 10/15/2022 11:35 AM EDT Received call from pt son & they would like referral to [facility]. [facility] tasked to make referral. [place] [id number] Note* Care Coordination - Joy Longo RN - 10/15/2022 10:29 AM EDT Images from the original note were not included. Care Management Progress Note Pt remains on 2E due to abd pain-improving. Constipation-resolved. Follow up CXR for moderate to large pleural effusions. Met with pt to discuss SNF choices. Pt choices are [facility]. Notified BIOMETRICS EXPERIMENTALIST to make referrals. Await response from SNF [...] Length of Stay (Days): 5 GMLOS: 2.6 [facility] [id number] Note* Care Coordination - Stef Cox - 10/15/2022 10:26 AM EDT Referral placed to SNF- [facility] via Careport per TCC request. Await review and response regarding ability to accept. TCC notified. [facility] [id number] Note* Care Coordination - Roberta Whitney RN - 10/14/2022 4:12 PM EDT Care Managment Initial Assessment Date: 10/14/2022 Patient Name: Katherine Judge : 1935 Patient Information Source of Information: Patient Cognition/Language: WFL - Within Functional Limits Permission given to speak with patient distribution sales representative/caregiver as indicated: Yes (Ganga Judge, son, [...] Living Prescription Coverage: Yes Pharmacy Used: [facility] [place] Medication Management: Independent Transportation/Shopping: Independent Transportation Mode: [...] Additional Information: Chart reviewed. Patient admitted to [facility] for treatment of Proctocolitis. Full liquid diet. PT/OT recommends SNF. Met with patient at bedside. Explained role. She is very pleasant. 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 Reports her son is helpful and lives 20 minutes away. Independent with adls. She does not drive. +PCP, +RX cov, +DME. Discussed SNF. Patient interested. But, wants to discuss with son first. Served Medicare Choice listing. No insurance authorization required to admit to SNF. DC plan: TBD Home with Home care vs SNF Tasked RAGINI perez to follow Roberta Whitney RN [facility] [id number] NoteHospitalist Progress Note 10/14/2022 [phone]: Please secure chat me for patient care issues. [phone]: Please secure chat [facility] Hospitalist for any issues. Subjective: Admit Date: 10/10/2022 PCP: Saida Gardiner Room#: B2-259/B2259 A Interval History: Patient is lying on the bed, abdominal pain is better. Complaining of multiple episodes of diarrhea. Denies any nausea or vomiting. No other significant overnight issues. Adult diet Full liquid @DURD3RCMCUR@ 24HR INTAKE/OUTPUT: No intake or output data [...] ordered. PT OT evaluated the patient recommended [facility] facility. -am labs, replace lytes prn -increase activity -DVT prophylaxis: [] Lovenox [] Heparin [] SCDs [x] Encourage ambulation [] Already on Anticoagulation Anticipated Discharge - Date -1 to 2 days - Location -[facility] facility - Pending the following -clinical improvement/placement Total time spent (which include face to face and non face to face encounters) : 25 minutes Toxic drug monitoring/narrow therapeutic index drug monitoring : # Drug name : # Route administered : # Method of monitoring : Extended Emergency Contact Information Primary Emergency Contact: Ganga Judge Mobile Relation: Son Preferred language: Malaysian Utility Service Worker needed? No Eder Monterroso MD Division of Hospitalist Medicine [employer] [facility] PAGER: CREATIV [id number] NoteGASTROENTEROLOGY PROGRESS NOTE Patient: Katherine Judge : [...] signed by Ron Vines DO 10/13/2022 2:25 [facility] [id number] NoteHospitalist Progress Note 10/13/2022 [phone]: Please page me ([phone]) for patient care issues. [phone]: Please page [facility] Hospitalist for any issues. Subjective: Admit Date: 10/10/2022 PCP: Saida Gardiner Room#: B2-200/B2-025 A Interval History: No overnight issues. Denies [...] [] Already on Anticoa (more content not included)...[facility] 10-12-2022 NoteHospitalist Progress Note 10/12/20226992886-3247: Please page me ([phone]) for patient care issues. [phone]: Please page [facility] Hospitalist for any issues. Subjective: Admit Date: [...] CAD (coronary artery disease) Hypothyroidism Ischemic colitis ([facility]) LABS: CBC: Recent Labs 10/10/22 1454 10/11/22 [...] Mobile Relation: Son Pre (more content not included)...[facility] [id number] Note GASTROENTEROLOGY PROGRESS NOTE Patient: Katherine Judge [...] signed by Ron Vines DO 10/12/2022 10:20 [facility]09-03-2023 Consult note* Marilu Whitaker RPh - 10/12/2022 12:14 PM EDT Vancomycin therapy has been discontinued by Dr. Tobar on 10-12-22. Thank you for the consult. Pharmacy signing off for vancomycin dosing. Marilu Whitaker RPh, Date: 10/12/22 Time: 12:14 PM [facility] HospitalThejfp14-50-2242 Consult note* Marilu Whitaker RPh - 10/12/2022 [...] spray, 1 spray, Each Nostril, BID, Ranjeet Toabr DO buPROPion XL (Wellbutrin XL) 24 hr [...] 10/11/2022 11:11 AM * Ligia Aguila, [facility] - 10/10/2022 9:20 PM EDT Pharmacy Note Vancomycin Consult Non-CABINETMAKER MAINTENANCE Katherine Judge is a 87 y.o. year [...] Will continue to follow. documented in this [facility]09-02-2023 Plan of care note* Care [...] address these barriers include encourage fluids . [facility] HospitalUqgldx10-09-8382 NoteHospitalist Progress Note 10/11/2022 [phone]: Please page me ([phone]) for patient care issues. [phone]: Please page [facility] night Hospitalist for any issues. Subjective: Admit [...] Ganga Judge Mobile Relation: Son Preferred language: Malaysian Utility Service Worker needed? No Ranjeet Tobar DO Division of Hospitalist Medicine [facility]patient Medical Services[facility] PAGER: [facility] [id number] NoteGASTROENTEROLOGY CONSULTATION REASON FOR CONSULT: The patient [...] at 10/11/22 1001 se (more content not included)...[facility]09-02-2023 Consult note * Ron Vines, DO - [...] Ron Vines DO 10/11/2022 11:11 AM T [facility] HospitalIbdklp30-57-1703 NoteAttending History and Physical Admit Date: 10/10/2022 [...] the last 72 hours. (more content not included)...[facility]09-01-2023 Plan of care note* Care Plan - [...] these barriers include continue current care plan. [facility] HospitalNffvbs48-43-9026 Consult note* Ligia Aguila [facility] - 10/10/2022 9:20 PM EDT Pharmacy Note Vancomycin Consult Non-CABINETMAKER MAINTENANCE Katherine Judge is a 87 y.o. year [...] for the consult. Will continue to follow. [facility] HospitalIytafu84-87-8872 History and physical note* Akil Lucio MD [...] Ganga Judge Mobile Relation: Son Preferred language: Malaysian Utility Service Worker needed? No Code status: No Order -see [...] H&P to the patient's PCP. Thank you. [employer] Phone: [phone]) 489-566209-01-2023 History and physical note* Akil Lucio MD [...] Ganga Judge Mobile Relation: Son Preferred language: Malaysian Utility Service Worker needed? No Code status: No Order -see [...] patient's PCP. Thank you. documented in this encounterSSt. [facility] CampusTqdiic48-68-0007 Emergency department Note* NADIYA Cleary - 10/10/2022 2:19 PM EDT Guided family back NADIYA Cleary 10/10/22 1419 [facility] HospitalZndwhb68-36-6599 Emergency department Note* NADIYA Cleary - 10/10/2022 2:19 PM EDT Guided family back NADIYA Cleary 10/10/22 1419 * Evelin Salcedo DO - 10/10/2022 1:26 PM EDT Emergency Department Encounter [facility] ED Patient: Katherine Judge : [...] for clarification.) Evelin Salcedo DO Acute Care [facility] Evelin Salcedo DO 10/10/222130 * Celeste Oneal [...] Culture. Procedure Abnormality Status --------- ------ Complete Urinalysis[[id number]] Please view results for these tests on [...] Emergency Medicine Provider Celeste Oneal PA-C 10/10/22 0066 documented in this [facility]09-01-2023 Physician Emergency department Note* Evelin Salcedo DO - 10/10/2022 1:26 PM EDT Emergency Department Encounter [facility] ED Patient: Katherine Judge : [...] [employer] Evelin Salcedo DO 10/10/222130 [employer] Phone: [phone] Physician Emergency department Note* Celeste Oneal PA-C [...] Culture. Procedure Abnormality Status --------- ------ Complete Urinalysis[[id number]] Please view results for these tests on [...] Emergency Medicine Provider Celeste Oneal PA-C 10/10/22 8438 [facility] HospitalDzdqph55-58-3663 Evaluation + Plan note* Assessment & Plan Note - Yana Case - 10/07/2022 2:57 PM EDTAssociated Problem(s): Lower abdominal pain Recurrent, to return to established GI (Dr. Garcia) for further evaluation. [facility] Work Phone: [phone] Miscellaneous Notes* Assessment & Plan Note - [...] Allergy/immunology referral placed today. documented in this encounterSum[facility] Work Phone: [phone]) [phone] Evaluation + Plan note* Assessment & Plan Note - Yana Case - 10/07/2022 2:50 PM EDTAssociated Problem(s): Anemia in other chronic diseases classified elsewhere 05/2022 CBC normal Patient to stop oral iron at this time. Repeat labs to be done prior to 6 month follow-up. [facility] Work Phone: [phone] Evaluation + Plan note* Assessment & Plan Note - Yana Case - 10/07/2022 2:47 PM EDTAssociated Problem(s): Benign essential hypertension BP is under good control, 122/70 in office today. Continue present regimen. [facility] Work Phone: [phone]) [phone] Evaluation + Plan note* Assessment & Plan [...] daily and calcium at 1500 mg daily. [facility] Work Phone: [phone]) [phone] Evaluation + Plan note* Assessment & Plan Note - Yana Case - 10/07/2022 2:23 PM EDTAssociated Problem(s): Chronic kidney disease, stage III (moderate) ([facility]) 05/2022 labs at baseline for patient. Will continue to monitor on regular basis. Revisited good BP control, avoiding NSAIDs, and adequate hydration as measures to further protect kidneys. [facility] Work Phone: [phone] Evaluation + Plan note* Assessment & Plan Note - Yana Case - 10/07/2022 2:22 PM EDTAssociated Problem(s): Hypercholesterolemia 05/2022 TC/HDL ratio 3.3, LDL 84, TRIG 135 Goal TC/HDL ratio 3.4 or less, LDL 99 or less, TC 200 or less, and TRIG 150 or less. Continue current regimen of Atorvastatin, Isosorbide, and Plavix. Continue heart healthy diet Continue exercise as tolerated [facility] Work Phone: [phone] Evaluation + Plan note* Assessment & Plan [...] heart healthy diet Continue exercise as tolerated [facility] Work Phone: [phone]) [phone] Evaluation + Plan note* Assessment & Plan [...] nasal sprays. 4. Allergy/immunology referral placed today. [facility] Work Phone: [phone]) [phone] History of Present illness Narrative* Christ Gardiner, [...] cardiology ECHO 03/2022 LV 60-65%, impaired relaxation, gwn-pt-wnwulm prolapse of the P2 segment of the [...] of Christ Gardiner DO. documented in this [facility] Work Phone: [phone]) [phone] Instructions* Patient Instructions* Christ Gardiner DO - [...] sooner follow-up if needed. documented in this [facility] Work Phone: [phone]) [phone] Evaluation + Plan note* Assessment & Plan [...] repeat CXR ordered to be done 06/29/2022. [facility] Work Phone: [phone]) [phone] Miscellaneous Notes* Assessment & Plan Note - [...] to be done 06/29/2022. documented in this encounterSum[facility] Work Phone: [phone] Evaluation + Plan note* Assessment & Plan Note - Yana Case - 06/19/2022 11:03 AM EDTAssociated Problem(s): Abdominal pain (Resolved 06/19/2022) Reported at prior visit; she denies any abdominal pain or GI symptoms at visit today. No further work-up indicated at this time. [facility] Work Phone: [phone] Evaluation + Plan note* Assessment & Plan [...] Repeat CXR ordered to be done 06/29/2022. [facility] Work Phone: [phone] History of Present illness Narrative* Christ Gardiner [...] ordered 05/30/2022 Patient to meet with our spout liner helper today to get sooner follow-up with cardiology [...] HENT: Head: Normocephalic and atraumatic. Mouth/Throat: Lips: [place]. Mouth: Mucous membranes are moist. Eyes: Extraocular [...] of Christ Gardiner DO. documented in this [facility] Work Phone: [phone] History of Present illness Narrative* 06/12/22: Mrs [...] with a PMH of anemia, hypothyroidism,hypertension, hyperlipidemia, NE, CAD, CABG, then an angioplasty after CABG, carotid artery disease, CVA, CKD, chronic colitis, osteoporosis, insomnia and peripheral neuropathy, here for a routine follow up. She denies any complaints of chest pain, shortness of breath, palpitations, lower extremityedema, dizziness or syncopal episodes. She reports elevated home BP readings. Today, her BP is 144/74. Her weight is up 5 lbs since December. [facility] [place] Work Phone: [phone]) 570-329005-02-2023 Evaluation + Plan note* Assessment & Plan Note - Yana Case - 06/10/2022 3:02 PM EDTAssociated Problem(s): Benign essential hypertension BP is under good control, 130/62 in office today. Continue present regimen. [facility] Work Phone: [phone]) 959-904505-02-2023 Miscellaneous Notes* Assessment & Plan Note - [...] check in 7-10 days. documented in this [facility] Work Phone: [phone]) 171-825505-02-2023 Evaluation + Plan note* Assessment & Plan [...] to go to the ER for evaluation. [facility] Work Phone: [phone] Evaluation + Plan note* Assessment & Plan [...] at her next check in 7-10 days. [facility] Work Phone: [phone] Evaluation + Plan note* Assessment & Plan [...] at her next check in 7-10 days. [facility] Work Phone: [phone] History of Present illness Narrative* Christ Gardiner, [...] ordered 05/30/2022 Patient to meet with our spout liner helper today to get sooner follow-up with cardiology [...] of Christ Gardiner DO. documented in this encounterSum[facility] Work Phone: [phone] Instructions* Patient Instructions* Yana Case - 06/10/2022 [...] today. Continue present regimen. documented in this encounterSumma [facility] Work Phone: [phone]) 376-844404-23-2023 Evaluation + Plan note* Assessment & Plan [...] okay overall. She wishes to work this [employer] [facility] as this has been ongoing for some time. She assures me she will get home pulse ox formonitoring. Red flag symptoms reviewed, patient to go straight to ED with any chest pain, significan t SOB, palpitations, or diaphoresis. CXR ordered today. Will have patient meet with our spout liner helper today to get sooner follow-up with cardiology in the next1-2 weeks, she is already established here at . Follow-up with me in 1 week. [facility] Work Phone: [phone] Miscellaneous Notes* Assessment & Plan Note - [...] today. Will have patient meet with our spout liner helper today to get sooner follow-up with cardiology [...] pulse ox at home) documented in this encounterSum[facility] Work Phone: [phone] Evaluation + Plan note* Assessment & Plan Note - Yana Case - 05/30/2022 3:57 PM EDTAssociated Problem(s): Osteoporosis Due to hypoxia when rooming today will defer osteoporosis discussion until this work up is complete. [facility] Work Phone: [phone] 454-565104-21-2023 Evaluation + Plan note* Assessment & Plan Note - Yana Case - 05/30/2022 3:53 PM EDTAssociated Problem(s): Benign essential hypertension BP under good control, however, due to patient being hypoxic, will increase Doxazosin from 1 mg to 2 mg daily. Continue Metoprolol 25 BID and Lasix. [facility] Work Phone: [phone]) [phone] History of Present illness Narrative* Christ Gardiner [...] okay overall. She wishes to work this [employer] outpatient as this has been ongoing for some time. She assures me she will get home pulse ox formonitoring. Red flag symptoms reviewed, patient to go straight to ED with any chest pain, significan t SOB, palpitations, or diaphoresis. CXR ordered today. Will have patient meet with our spout liner helper today to get sooner follow-up with cardiology [...] pulse ox at home) documented in this encounterSum[facility] Work Phone: [phone] Progress note* Result Encounter Note - Christ [...] monitoring sx and pulse ox at home) [facility] Work Phone: [phone] Evaluation + Plan note* Assessment & Plan Note - Yana Case - 04/15/2022 3:28 PM ESTAssociated Problem(s): [facility] Vaccines and screenings reviewed DEXA ordered [facility] Work Phone: [phone] Miscellaneous Notes* Assessment & Plan Note - Yana Case - 04/15/2022 3:28 PM ESTAssociated Problem(s): Routine general medical examination at [facility] facility Vaccines and screenings reviewed DEXA ordered [...] at 1500 mg daily. documented in this encounterSum[facility] Work Phone: [phone] Evaluation + Plan note* Assessment & Plan Note - Yana Case - 04/15/2022 3:19 PM ESTAssociated Problem(s): Hypercholesterolemia Continue current regimen Repeat lipid panel ordered today. [facility] Work Phone: [phone] 452-559803-07-2023 Evaluation + Plan note* Assessment & Plan Note - Yana Case - 04/15/2022 3:18 PM ESTAssociated Problem(s): Anemia in other chronic diseases classified elsewhere Repeat CBC ordered today [facility] Work Phone: [phone] Evaluation + Plan note* Assessment & Plan Note - Yana Case - 04/15/2022 3:17 PM ESTAssociated Problem(s): Chronic kidney disease, stage III (moderate) (CMS/HCC) Repeat BMP ordered today [facility] Work Phone: [phone] 296-639503-07-2023 Evaluation + Plan note* Assessment & Plan Note - Yana Case - 04/15/2022 3:14 PM ESTAssociated Problem(s): GERD (gastroesophageal reflux disease) Continue Pantoprazole + Famotidine Famotidine refilled today Continue to follow-up with GI [facility] Work Phone: [phone] Evaluation + Plan note* Assessment & Plan Note - Yana Case - 04/15/2022 3:13 PM ESTAssociated Problem(s): Benign essential hypertension BP well-controlled, continue present regimen [facility] Work Phone: [phone] Evaluation + Plan note* Assessment & Plan Note - Yana Case - 04/15/2022 3:13 PM ESTAssociated Problem(s): CAD (coronary artery disease) Repeat lipid panel ordered today. Continue current regimen Continue heart healthy diet Continue exercise as tolerated [facility] Work Phone: [phone] Evaluation + Plan note* Assessment & Plan Note - Yana Case - 04/15/2022 3:12 PM ESTAssociated Problem(s): Aortic stenosis ECHO 03/2022 Continue to follow-up with cardiology. [facility] Work Phone: [phone] Evaluation + Plan note* Assessment & Plan Note - Yana Case - 04/15/2022 3:12 PM ESTAssociated Problem(s): Insomnia Stable, continue Mirtazapine 30 mg at bedtime, refilled today. [facility] Work Phone: [phone] Evaluation + Plan note* Assessment & Plan [...] daily and calcium at 1500 mg daily. [facility] Work Phone: [phone] History of Present illness Narrative* Christ Gardiner [...] cardiology ECHO 03/2022 LV 60-65%, impaired relaxation, jcp-hk-hbqbzd prolapse of the P2 segment of the [...] Genitourinary Chronic kidney disease, stage III (moderate) ([facility]) Current Assessment & Plan Repeat BMP ordered [...] of Christ Gardiner DO. documented in this [facility] Work Phone: [phone] 400-602207-06-2022 History of Present illness Narrative* 08/14/2021:Mrs Judge [...] with a PMH of anemia, hypothyroidism,hypertension, hyperlipidemia, NE, CAD, CABG, then an angioplasty after CABG, carotid artery disease, CVA, CKD, chronic colitis, osteoporosis, insomnia and peripheral neuropathy, here for a routine follow up. She denies any complaints of chest pain, shortness of breath, palpitations, lower extremityedema, dizziness or syncopal episodes. She reports elevated home BP readings. Today, her BP is 144/74. Her weight is up 5 lbs since December. [facility] [address] [place] Work Phone: [phone] History of Present illness Narrative* 08/14/2021:Mrs Judge [...] with a PMH of anemia, hypothyroidism,hypertension, hyperlipidemia, NE, CAD, CABG, then an angioplasty after CABG, carotid artery disease, CVA, CKD, chronic colitis, osteoporosis, insomnia and peripheral neuropathy, here for a routine follow up. She denies any complaints of chest pain, shortness of breath, palpitations, lower extremityedema, dizziness or syncopal episodes. She reports elevated home BP readings. Today, her BP is 144/74. Her weight is up 5 lbs since December. [facility] Work Phone: [phone]) [phone] NoteHospitalist Discharge Summary Katherine Judge : 1935 [...] Discharge Medications: Katherine Judge Home Medication Instructions JOE:[id number] Printed on:10/22/202105 Medication Information acetaminophen (TYLENOL) 500 [...] Complexity: follow up within 7-14 calendar days (58701) [x] Severe Complexity: follow up within 7 calendar days (94370) Follow up Testing, Pending results or Referrals [...] patient is scheduled fo (more content not included)...[employer]02-01-2021 History of Present illness Narrative* MWV LAST [...] the past, then call my office at [phone] option 1 and we will pursue a special CT scan to look at the bloodvessels. Follow-up on an as needed basis. Trial of Dicyclomine in place of Hyoscyamine. [facility] Work Phone: [phone]) 114-893502-01-2021 History of Present illness Narrative* MWV LAST [...] in her apartment. * Patient hospitalized at [facility] 10/14-10/22/2020 with diagnosis of ischemic colitis, [...] strength. Also endorses urinary frequency. States that [facility] took specimen about 2-3 days ago. [...] the past, then call my office at [phone] option 1 and we will pursue a special CT scan to look at the bloodvessels. Follow-up on an as needed basis. Trial of Dicyclomine in place of Hyoscyamine. [facility] Work Phone: 1([phone]) [phone] History of Present illness Narrative* MWV LAST [...] in her apartment. * Patient hospitalized at [facility] 10/14-10/22/2020 with diagnosis of ischemic colitis, [...] strength. Also endorses urinary frequency. States that [facility] took specimen about 2-3 days ago. [...] the past, then call my office at [phone] option 1 and we will pursue a special CT scan to look at the bloodvessels. Follow-up on an as needed basis. Trial of Dicyclomine in place of Hyoscyamine. 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 (a viral illness resulting in neurological [...] the past, then call my office at [phone] option 1 and we will pursue a special CT scan to look at the bloodvessels. Follow-up on an as needed basis. Trial of Dicyclomine in place of Hyoscyamine. * needs help with cleaning, is cooking but is hard for her * does not have meals on wheels * has heard of [employer], has not recently * awaiting medical surgery nurse through home care, has nursing. nursing told her social work was ordered, just watiting * no falls * does use frozen dinners for dinner * usually make breakfast and lunch, nothing elaborate (sandwiches,d fruit veggies) * is having a bit of diarrhea sometimes dark but is on iron -[facility] Work Phone: [phone]) [phone] History of Present illness Narrative* Health maintenance: [...] 2 mg BID PRN for back spasms. [facility] Work Phone: chief complaint Narrative - Reportedevaluation of multiple issues.-[facility] Work Phone: consult note Author Thanh [facility] Note Date/Time July 25, 2024 5:10 pm [facility] Medical Records Department [address] [place] [address] Consultation 07/25/24 1706 MR#: [id number] Acct: [id number] Name: DERICKKATHERINE N Rep #:[id number] : 1935 89 From: Thanh Mclaughlin DO [...] years ago with Dr. Malcom Herron in [facility]. She is on Plavix [facility] Medical History (Updated 07/25/24 @ 17:08 [...] her son who is her power of assistant district attorney Appearance: cooperative Extremity Extremity Narrative: Exquisitely [...] % (Auto) 69.2, Lymph % (Auto) 22.9, Greenwood % (Auto) 6.2, Eos % (Auto) 0.9, [...] of the proximal right femur. Reading Location: [facility] Chest X-Ray 07/25/24 15:15 IMPRESSION: Cardiomegaly and vascular congestion with atelectasis at the lung bases. Reading Location: [facility] 07/25/24 1710 <Electronically signed by Thanh Mclaughlin DO> Cosigner Signature (if applicable): CC: Dr. Kam Ocampo Sr., DO~ Signed [facility] Work Phone: Discharge summary Author Neymar Cunningham [facility] November 02, 2022 12:11pm Note Date/Time November 02, 2022 11:56am [facility] Medical Records Department [address] [place] [address] Transfer to [facility] MR#: [id number] Acct: [id number] Name: KATHERINE JUDGE Rep #:[id number] : 1935 87 From: Neymar Herrera PCP: Dr. Kam Ocampo Sr., DO Status:A DM IN Certification of patient admission REQUIRED AT TIME OF ADMISSION. I CERTIFY THAT POST-HOSPITAL ECF SERVICES ARE REQUIRED TO BE GIVEN ON AN IN-PATIENT BASIS BECAUSE OF THE ABOVE NAMED PATIENT'S NEED FOR ASSISTED CARE ON A CONTINUING BASIS FOR THE CONDITION(S) FOR WHICH HE/SHE WAS RECEIVING IN-PATIENT HOSPITAL SERVICES PRIOR TO HIS/HER TRANSFER TO THE [facility]. 11/02/22 1211<Electronically signed by Neymar Cunningham [...] CAD, hypertension and depression who presented to [facility] ED from halfway on 10/30/2022 for expressive aphasia and dysarthria. [...] of ASD; bubble contrast study negative for nuprj-qq-xhrv interatrial shunt. LA severely enlarged. EF 70%. MRI brain reports no acute or subacute ischemic infarct or acute intracranial abnormality. SOC consult ordered 2. Chronic debility Patient's family notes that she was recently hospitalized at an outside hospitalfor medical concerns unrelated to current concern for acute CVA. She was discharged to a [facility] facility, with plans for long-term placement in a halfway after that. Has been residing at the [facility], and family has been happy with [...] diet as tolerated w/ texture/consistency modifications per [employer]AGS [employer]ER as indicated; will monitor PO intake as established and provide ONS if indicated Discharge Plan Admission Admit Date/Time: 10/30/22 21:21 Primary Reason for Your Visit: TIA/possible acute stroke. Attending Provider: Neymar Cunningham Primary Care Provider: Terrence Addison,Kam Consulting Providers: Hayden Diaz; Mu Grossman; Ajay Nieves; Dayron Workman; Lucio Brown; Alen Burgess; Melania Perez RN SURGICAL PCU Discharge Orders/Prescriptions Prescriptions: New atorvastatin 40 mg [...] Cunningham MD> Cosigner Signature (if applicable): CC: RN SURGICAL PCUTha Perez; Dr. Hayden Diaz, DO; Dr. Mu Grossman MD; Dr. Kam Ocampo Sr., DO; Dr. Ajay Nieves DO; Dr. Dayron Workman MD; Dr. Lucio Brown MD; Dr. Alen Burgess MD ~ [facility] Work Phone: Discharge summary Author Neymar Octavio [facility] November 02, 2022 12:44pm Note Date/Time November 02, 2022 11:58am [facility] Medical Records Department [address] [place] [address] Discharge Summary 11/02/22 1157 MR#: [id number] Acct: [id number] Name: KATHERINE JUDGE Rep #:[id number] : 1935 87 From: Neymar Herrera PCP: Dr. Kam Ocampo Sr., DO Status:A DM IN Location: ICU CVICU 3-1 Providers Date of Admission: 10/30/22 Date of Discharge: 11/02/22 Primary Care Physician: Dr. Kam Ocampo Sr., Consultations 10/30/22 20:14 Consult: Food Processing Chemist / Pulmonary Medicine Routine Consulting Provider: [facility] Reason for Consult: stroke for thrombolytic administration [...] CAD, hypertension and depression who presented to [facility] ED from halfway on 10/30/2022 for expressive aphasia and dysarthria. [...] of ASD; bubble contrast study negative for fmzen-do-rojk interatrial shunt. LA severely enlarged. EF 70%. [...] acute CVA. She was discharged to a [facility] facility, with plans for long-term placement in a halfway after that. Has been residing at the [facility], and family has been happy with [...] 14:05 EDT Reading Location ID and State: [facility] / [place] , Service support , Meaningful Use Info Meaningful Use Diagnoses (Choose all that apply): None applicable Discharge Plan Admission Admit Date/Time: 10/30/22 21:21 Primary Reason for Your Visit: TIA/possible acute stroke. Attending Provider: Neymar Cunningham Primary Care Provider: Terrence Addison,Kam Consulting Providers: Hayden Diaz; Mu Grossman; Ajay Nieves; Dayron Workman; Lucio Brown; Alen Burgess; Melania Perez RN SURGICAL PCU Instructions Additional Instructions / Restrictions: Fasting TSH [...] Sr., DO; Dr. Neymar Cunningham MD~ Signed [facility] Work Phone: Evaluation note* Diagnosis Hypoxia- Primary Hypoxemia Coronary artery disease without angina pectoris, unspecified vessel or lesion type, unspecified whether holy cross or transplanted heart Benign essential hypertension Essential hypertension, benign Pneumonia of right lung due to infectious organism, unspecified part of lung documented in this encounter [facility] Work Phone: Evaluation note* Diagnosis Hypoxia Hypoxemia Benign essential hypertension Essential hypertension, benign Pneumonia of right lung due to infectious organism, unspecified part of lung Abdominal pain, unspecified abdominal location documented in this encounter [facility] Work Phone: Evaluation note* Diagnosis Hypoxia Hypoxemia Pneumonia of right lower lobe due to infectious organism Abdominal pain, unspecified abdominal location documented in this encounter [facility] Work Phone: Evaluation note* Diagnosis Benign essential hypertension- Primary Essential hypertension, benign Osteoporosis, unspecified osteoporosis type, unspecified pathological fracture presence Coronary artery disease without angina pectoris, unspecified vessel or lesion type, unspecified whether holy cross or transplanted heart Stage 3a chronic kidney disease (CMS/HCC) Hypercholesterolemia Pure hypercholesterolemia Allergic rhinitis, unspecified seasonality, unspecified trigger Multiple allergies Lower abdominal pain Abdominal pain, other specified site Anemia in other chronic diseases classified elsewhere documented in this encounter [facility] Work Phone: Evaluation note* Diagnosis 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 Abdominal pain, generalized Constipation, unspecified constipation type [facility] Diagnosis Onset Date Resolution Status Acute CVA (cerebrovascular accident) acute History of CAD (coronary artery disease) acute Hypertension chronic [facility] Work Phone: Evaluation note* Diagnosis Onset Date Resolution Status History of CAD (coronary artery disease) acute Acute CVA (cerebrovascular accident) resolved [facility] Work Phone: Evaluation noteNo assessment information available [facility] Work Phone: Evaluation note* Diagnosis Healthcare maintenance- Primary Osteoporosis, unspecified osteoporosis type, unspecified pathological fracture presence Screening for osteoporosis Special screening for osteoporosis Postmenopausal estrogen deficiency Benign essential hypertension Essential hypertension, benign Coronary artery disease without angina pectoris, unspecified vessel or lesion type, unspecified whether holy cross or transplanted heart Gastroesophageal reflux disease, unspecified [...] health care facility documented in this encounter [facility] Work Phone: Evaluation note* Diagnosis Onset Date Resolution Status Admit Date Closed intertrochanteric fra cture of right hip acute July 25, 2024 4:51pm Elevated blood pressure reading acut e July 25, 2024 4:51pm Fall acute July 25 4:51pm [facility] Work Phone: Evaluation note* Diagnosis Onset Date Resolution Status Admit Date Altered mental status acute Guzman 2024 5:20pm Anemia acute August 02 5:20pm GI bleed acute August 02 5:20pm [facility] Work Phone: History of Present illness [...] * SocHx: Denies smoking, alcohol, or illicits [facility] Work Phone: History of Present illness [...] * SocHx: Denies smoking, alcohol, or illicits [facility] Work Phone: History of Present illness Narrative* [...] ischemic colitis, other segmental colonic biopsies normal). [facility] Work Phone: History of Present illness NarrativeMrs [...] movement. The pain is not associated with eating.[facility] Work Phone: History of Present illness [...] Her weight is up 5 lbs since December.[facility] Work Phone: History of Present illness Narrative* [...] kidney function check was 03/2021 (stable) * Commercial Attache: (last seen 03/2021), follow up in 6mo [...] AM and once in PM. No sedation. -[facility] Work Phone: History of Present [...] to her right cheek, but denies any trauma.[facility] [address] [place] Work Phone: History of Present [...] She is now under going rehab in [facility] and is now on continuous O2. She reports that after urinating, she had a syncopal episode. She is unsurewhat caused this syncopal episode. She denies any complaints of chest pain, lower extremity edema or weight gain. She does complain of shortness of breath and weight loss since her hospitalization. [facility] [address] [place] Work Phone: History of Present [...] to her right cheek, but denies any trauma.[facility] Work Phone: Reason for referral (narrative)* Consultation (Routine) - Authorized Specialty Diagnoses / Procedures Referred By Naomi young Referred To Contact Primary Care Diagnoses Hypoxia Benign essential hypertension Procedures Follow Up In Advanced Primary Care - PCP Christ Gardiner DO [address] [facility] [place] [address] Referral ID Status Reason Start Date Expiration Date V isits Requested Visits Authorized [id number] Authorized 06/01/2022 11/28/2022 1 1 * Imaging (Routine) - Authorized Specialty Diagnoses / Procedures Referred By Naomi young Referred To Contact Radiology Diagnoses Hypoxia Procedures XR chest 2 views Christ Gardiner DO [address] [facility] [place] [address] Referral ID Status Reason Start Date Expiration Date Visits Requested Visits Authorized [id number] Authorized Perform Procedure 05/30/2022 11/26/2022 1 1 [facility] Work Phone: Renmcx for referral (narrative)* Consultation (Routine) - Authorized Specialty Diagnoses / Procedures Referred By Naomi young Referred To Contact Primary Care Diagnoses Hypoxia Pneumonia of right lower lobe due to infectious organism Abdominal pain, unspecified abdominal location Procedures Follow Up In Advanced Primary Care - PCP Christ Gardiner DO [address] [facility] [place] [address] Referral ID Status Reason Start Date Expiration Date V isits Requested Visits Authorized [id number] Authorized 06/10/2022 12/07/2022 1 1 [facility] Work Phone: Repktk for referral (narrative)* Consultation (Routine) - Authorized Specialty Diagnoses / Procedures Referred By Contac t Referred To Contact Gastroenterology Diagnoses Lower abdominal pain Procedures RI OFFICE/OUTPATIENT [facility] 60-74 MINUTES Christ Gardiner DO [address] [facility] [place] [address] Referral ID Status Reason Start Date Expiration Date Visits Requested Visits Authorized [id number] Authorized Specialty Services Required 10/07/2022 04/05/2023 1 1 * Consultation (Routine) - Authorized Specialty Diagnoses / Procedures Referred By Contac t Referred To Contact Allergy Diagnoses Multiple allergies Procedures RI OFFICE/OUTPATIENT [facility] 60-74 MINUTES Christ Gardiner DO [address] [facility], [address] [address] Referral ID Status Reason Start Date Expiration Date Visits Requested Visits Authorized [id number] Authorized Specialty Services Required 10/07/2022 04/05/2023 1 1 [facility] Work Phone: Renmlq for referral (narrative)* Consultation (Routine) - Authorized Specialty Diagnoses / Procedures Referred By Contac t Referred To Contact Primary Care Diagnoses Osteoporosis, unspecified osteoporosis type, unspecified pathological fracture presence Benign essential hypertension Coronary artery disease without angina pectoris, unspecified vessel or lesion type, unspecified whether holy cross or transplanted heart Stage 3a chronic kidney disease Hypercholesterolemia Procedures Follow Up In Advanced Primary Care - PCP Christ Gardiner DO [address] [facility], [address] [address] Referral ID Status Reason Start Date Expiration Date V isits Requested Visits Authorized [id number] Authorized 04/15/2022 10/12/2022 1 1 * Consultation (Routine) - Authorized Specialty Diagnoses / Procedures Referred By Contac t Referred To Contact Primary Care Diagnoses Osteoporosis, unspecified osteoporosis type, unspecified pathological fracture presence Benign essential hypertension Coronary artery disease without angina pectoris, unspecified vessel or lesion type, unspecified whether holy cross or transplanted heart Procedures Follow Up In Advanced Primary Care - PCP Christ Gardiner DO [address] [facility] [place] [address] Referral ID Status Reason Start Date Expiration Date V isits Requested Visits Authorized [id number] Authorized 04/15/2022 10/12/2022 1 1 * Imaging (Routine) - Authorized Specialty Diagnoses / Procedures Referred By Contac t Referred To Contact Radiology Diagnoses Screening for osteoporosis Postmenopausal estrogen deficiency Procedures XR DEXA bone density Christ Gardiner DO [address] [facility] [place] [address] Referral ID Status Reason Start Date Expiration Date Visits Requested Visits Authorized [id number] Authorized Perform Procedure 04/15/2022 10/12/2022 1 1 [facility] Work Phone: Reason for referral (narrative)No reason for referral [facility] Work Phone: Summary Purpose Family History [...] FoundDocuments on File Type Date Recorded Patient Testing Coordinator Expl anation Living Will 10/16/2021 Healthcare Power of Atty 01/05/2017 Latest Code Status on File Code Status Date Activated Date Inactivated Comments Full Code 10/10/2022 9:05 PM 10/16/2022 5:15 PM Advance Directive Response Recorded Date/ Time Living Will Yes October 30, 2022 9:18pm Power of Living Specialist Yes October 9:18pm Name of Medical Power of Living Specialist Ganga Judge October 30, 2022 9:18pm Advance Directive Response Recorded Date/ Time Name of Medical Power of Living Specialist Ganga diggs October 30, 2022 10:55pm Living Will No October 30, 2022 10:55pm Power of Living Specialist Yes October 10:55pm Advance Directive Response Recorded Date/ Time Name of Medical Power of Living Specialist Ganga diggs October 30, 2022 10:55pm Name of Medical Power of Living Specialist Ganga ORTA n November 06, 2022 4:26pm Living Will Yes November 06, 2022 4:26pm Power of Living Specialist Yes October 4:26pm Advance Directive Response Recorded Date/ Time Name of Medical Power of Living Specialist Ganga diggs October 30, 2022 9:55pm Name of Medical Power of Living Specialist Ganga ORTA n November 06, 2022 3:26pm Living Will Yes November 06, 2022 3:26pm Power of Living Specialist Yes October 3:26pm Advance Directive Response Recorded Date/ Time Name of Medical Power of Living Specialist Ganga ORTA n November 06, 2022 3:26pm Living Will Yes November 06, 2022 3:26pm Power of Living Specialist Yes October 3:26pm Advance Directive Response Recorded Date/ Time Living Will Yes November 06, 2022 4:26pm Power of Living Specialist Yes October 4:26pm Documents on File Type Date Recorded Patient Testing Coordinator Expl anation Advance Directives and Living Will 01/06/2017 Advance Directive Response Recorded Date/ Time Do you have a Healthcare Power of Living Specialist? No July 25, 2024 2:44pm Advance Directive Response Recorded Date/ Time Do you have a Healthcare Power of Living Specialist? No July 25, 2024 6:26pm Advance Directive Response Recorded Date/ Time Do you have a Healthcare Power of Living Specialist? No August 02, 2024 1:06pm Advance Directive Response Recorded Date/ Time Do you have a Healthcare Power of Living Specialist? No July 25, 2024 6:26pm Do you have a Healthcare Power of Living Specialist? No August 02, 2024 1:06pm Hospital Course Note Send Summary:Discharge Summa ry Providers:Provider RoleProvider Name? ReferringManny Arana? Ventura Garcia? ConsultingManny Arana? Benjy Pruitt? AttendingManny Arana Note Recipients: Manny Arana, Benjy Phan MD - [phone] [Preferred]Ventura Thacker MD Discharge: Summary:Admission Date: .02-Jul-2017 14:57:00Discharge Date: 73-[id number] Physician at Discharge: Manny Arana PAdmission Reason: Abdominal pain(1)Final Discharge Diagnoses: Acute bowel obstruction, Cecal volvulus,Hypokalemia, Magnesium deficiency,Procedures: Date: 03-Jul-2017 00:48:00Procedure Name: US GUIDED PLACEMENT LEFT IJ TLC / ELAP / ANDREIA / RIGHT COLECTOMY/ STAPLED ILEOCOLONIC ANASTAMOSIS / BILATERAL TAP BLOCK Condition at Discharge: SatisfactoryDisposition at Discharge: DC/Xfer to Swing BedVital Signs: T [id number]/7595%Date/Time07/09 7: 7: 7: 7: 7:36Range(36.6C - 37.5C ) (82 - 91 ) (18 - 18 ) (more content not included)... Note Send Summary:Discharge Summa ry Providers:Provider RoleProvider Name? ReferringManny Arana? AttendingManny Arana Note Recipients: Manny Arana, Jw Phan MD Discharge: Summary:Admission Date: .09-Jul-2017 08:05:00Discharge Date: 96-[id number] Physician at Discharge: Manny Arana PAdmission Reason: Cecal VolvulusFinal Discharge Diagnoses: Cecal volvulus, Clostridium difficile colitis,Procedures: Right hemicolectomyCondition at Discharge: SatisfactoryDisposition at Discharge: Senior Care FacilityVital Signs: T [id number]/6894%Date/Time07/17 6: 6: 6:236 6: 6:23Range(36.4C - 36.7C [...] Manny Arana MDManohar, Chenguttai Jayaram, MD - [phone] [Preferred]Valerie Jiang MD Discharge: Summary:Admission Date: .26-Jul-2017 13:45:00Discharge Date: 75-[id number]-1333Qwdtznzzz Physician at Discharge: Edwin Jiang Reason: Encephalopathy; Hypercalcemia(1)Final Discharge Diagnoses: RADHA, Encephalopathy, HypercalcemiaProcedures: .Condition at Discharge: SatisfactoryDisposition at Discharge: Senior Care FacilityVital Signs: T [id number]/6498%Date/Time07/29 13:5207/29 13:5207/29 13: 13:5207/29 13:52Range(36.6C - 36.8C [...] Pruitt Note Recipients: Benjy Garnett MD - [phone] [Preferred] Discharge: Summary:Admission Date: .09-Oct-2017 12:52:00Discharge Date: 31-Tgn-8879Xrmvzlmyd Physician at Discharge: Kan Gandhi Reason: abd pain, diarrhea, weakness, not feeling well(1)Final Discharge Diagnoses: Acute encephalopathy, Clostridium difficile carrier,Clostridium difficile colitis, Diarrhea, Hypokalemia, Hypomagnesemia, Proteinmalnutrition unspecified (disorder),Procedures: NoneCondition at Discharge: SatisfactoryDisposition at Discharge: Senior Care FacilityVital Signs: T [id number]/8395%Date/Time10/13 14: 14: 14: 14: 14:00Range(36.8C - 37.4C [...] ILEOCOLONIC ANASTAMOSIS / BILATERAL TAP BLOCKSurgeon: SUMITResident/Fellow/Other Medical Affairs Specialist: Nura Blood Loss (mL): 50Specimen: yesFindings: CECAL [...] Tapia Note Recipients: Benjy Garnett MD - [phone] [Preferred]Spencer Hardy MD Discharge: Summary:Admission Date: .26-Aug-2017 02:30:00Discharge Date: 04-Ymo-9540Vdadflasj Physician at Discharge: Jessenia Tapia ThereseAdmission Reason: SBO(1)Final Discharge Diagnoses: Small bowel obstructionProcedures: noneCondition at Discharge: FairDisposition at Discharge: Senior Care FacilityVital Signs: T [id number]/7694%Date/Time09/01 4: 4: 4: 4: 4:36Range(36.5C - 37.7C [...] Recipients: Magui Stuart, Benjy Phan MD - [phone] [Preferred] Discharge: Summary:Admission Date: .05-Sep-2017 06:05:00Discharge Date: 09-Fnp-5750Pircssdlb Physician at Discharge: CarrolAdmission Reason: Acute encephalopathy(1)Final Discharge Diagnoses: Acute encephalopathy-resolvedProbable cause secondary to fallCortical brain contusion Severe protein calorie malnutritionProcedures: noneCondition at Discharge: satisfactoryDisposition at Discharge: [facility]: T [id number]/7094%Date/Time09/07 19: 19: 19: 19: 19:58Range(36.5C - 37C [...] ILEOCOLONIC ANASTAMOSIS / BILATERAL TAP BLOCKSurgeon: GOELResident/Fellow/Other Medical Affairs Specialist: Nura Blood Loss (mL): 50Specimen: yesFindings: CECAL [...] views Christ Gardiner DO [address] [facility] [place] [address] Referral ID Status Reason Start Date Expiration Date Visits Requested Visits Authorized [id number] Authorized Perform Procedure 06/19/2022 12/16/2022 1 1 [...] WORK neuro symptoms LAB WORK LABWORK LABWORK ASSISTED LAB WORK Reason for Visit History of CAD (wild nary artery disease) Acute CVA (cerebrovascular accident) Chief Complaint ACUTE CVA ACUTE CVA ACUTE CVA ACUTE CVA ACUTE CVA LAB WORK neuro symptoms LAB WORK LABWORK LABWORK ASSISTED LAB WORK DYSPNEA Reason for Visit History of CAD (wild nary artery disease) Acute CVA (cerebrovascular accident) Chief Complaint ACUTE CVA ACUTE CVA ACUTE CVA ACUTE CVA ACUTE CVA LAB WORK neuro symptoms LAB WORK LABWORK LABWORK ASSISTED LAB WORK DYSPNEA ASSISTED LAB WORK LABWORK Reason for Visit History of CAD (wild nary artery disease) Acute CVA (cerebrovascular accident) Chief Complaint LAB WORK neuro symptoms LAB WORK LABWORK LABWORK ASSISTED LAB WORK DYSPNEA ASSISTED LAB WORK LABWORK ASSISTED LAB WORK Chief Complaint ASSISTED LAB WOR K LABWORK ASSISTED LAB WORK LABWORK ASSISTED LAB WORK Chief Complaint Admit Date ASSISTED LAB WORK January 25 5:00am ASSISTED LAB WORK February 07 5:45am ASSISTED LAB WORK February 08 5:00am ASSISTED LAB WORK April 14, 2024 5: 00am [...] 2024 4:51 pm Chief Complaint Admit Date ASSISTED LAB WORK April 14, 2024 5: 00am ANEMIA, GI BLEED August 02, 2024 5:20 pm Reason for Visit Admit Date Altered mental status August 02, 2024 5: 20pm Anemia August 02, 2024 5:20 pm GI bleed August 02, 2024 5:20 pm Chief Complaint Admit Date ASSISTED LAB WORK April 14, 2024 5: 00am [...] HIP FRACTURE July 28, 2024 7 :53am ASSISTED LAB WORK August 01, 2024 5: 00am [...] Room 2 August 17, 2024 9:47a m ASSISTED LAB WORK September 13, 2024 5 :00am ASSISTED LAB WORK October 25 4:00am Reason for [...] DATE CREATED AUTHOR AUTHOR'S ORGANIZ ATION 01/21/2018 [facility] DATE CREATED AUTHOR AUTHOR'S ORGANIZ ATION 01/30/2018 [facility] DATE CREATED AUTHOR AUTHOR'S ORGANIZ ATION 12/21/2020 [facility] DATE CREATED AUTHOR AUTHOR'S ORGANIZ ATION 06/02/2022 [facility] DATE CREATED AUTHOR AUTHOR'S ORGANIZ ATION 06/14/2022 [facility] DATE CREATED AUTHOR AUTHOR'S ORGANIZ ATION 07/21/2022 [facility] DATE CREATED AUTHOR AUTHOR'S ORGANIZ ATION 09/13/2022 [facility] DATE CREATED AUTHOR AUTHOR'S ORGANIZ ATION 10/08/2022 [facility] DATE CREATED AUTHOR AUTHOR'S ORGANIZ ATION [facility]/16/20[facility] DATE CREATED AUTHOR AUTHOR'S ORGANIZ ATION 10/28/2022 [facility] DATE CREATED AUTHOR AUTHOR'S ORGANIZ ATION 08/04/2024 [facility] DATE CREATED AUTHOR AUTHOR'S ORGANIZ ATION 12/05/2024 [facility] Reason for Visit (unrecogniz ed section and content) Reason Comments Follow-up Bone density results -discuss meds Reason Comments Follow-up 1 week fuv HYPOXIA Specialty Diagnoses / Procedures Referred By Naomi young Referred To Contact Primary Care Diagnoses Hypoxia Benign essential hypertension Procedures Follow Up In Advanced Primary Care - PCP Christ Gardiner DO [address] [facility] [place] [address] Referral ID Status Reason Start Date Expiration Date V isits Requested Visits Authorized [id number] Authorized 06/01/2022 11/28/2022 1 1 Reason Comments Follow-up Lungs Specialty Diagnoses / Procedures Referred By Naomi young Referred To Contact Primary Care Diagnoses Hypoxia Pneumonia of right lower lobe due to infectious organism Abdominal pain, unspecified abdominal location Procedures Follow Up In Advanced Primary Care - PCP Christ Gardiner DO [address] [facility], [address] [place] [address] Referral ID Status Reason Start Date Expiration Date V isits Requested Visits Authorized [id number] Authorized 06/10/2022 12/07/2022 1 1 Reason Comments Follow-up Pt presents for 6 mo nth follow up- pt states that her allergies have been bothering her. Specialty Diagnoses / Procedures Referred By Contac t Referred To Contact Primary Care Diagnoses Osteoporosis, unspecified osteoporosis type, unspecified pathological fracture presence Benign essential hypertension Coronary artery disease without angina pectoris, unspecified vessel or lesion type, unspecified whether holy cross or transplanted heart Procedures Follow Up In Advanced Primary Care - PCP Christ Gardiner DO [address] [facility], [address] [place] [address] Referral ID Status Reason Start Date Expiration Date V isits Requested Visits Authorized [id number] Authorized 04/15/2022 10/12/2022 1 1 Reason Comments [...] constipation type Procedures . Akil Lucio MD [address] [place] [address] [facility] [address] [place] [address] Referral ID Status Reason Start Date Expiration Date Visits Re quested Visits Authorized [id number] 1 1 Care Teams (unrecognized sec tion and content) Team Status: Active Member Role Status Dates Dr. Kam Ocampo Sr. , DO Primary Care Provider Active Team Status: Inactive Member Role Status Dates Dr. Jacobo Moya , DO Emergency Provider Active Start: July 25, 2024 End: July 28, 2024 Dr. Kma Ocampo Sr. , DO Primary Care Provider [...] MD Attending Provider, Referring Pro vider Active Dancing Master Relationship Specialty Start Date End Date Christ Gardiner DO [address] [place] [address], [address] [place] [address] PCP - General 05/19/06 Apple Aguilar, TOE FORMER STITCHDOWNS-CONDITIONING MACHINE OPERATOR [address], [address] [place] [address] PCP - [facility] Attributed Provider 08/09/21 Dancing Master Relationship Specialty Start Date End Date Christ Gardiner DO [address] [facility], [address] [place] [address] PCP - General 05/19/06 Apple Aguilar, TOE FORMER STITCHDOWNS-CONDITIONING MACHINE OPERATOR [address], [address] [place] [address] PCP - [facility] Attributed Provider 08/09/21 Dancing Master Relationship Specialty Start Date End Date Christ Gardiner DO [address] [facility], [address] [place] [address] PCP - General 05/19/06 Apple Aguilar, TOE FORMER STITCHDOWNS-CONDITIONING MACHINE OPERATOR [address] [facility] [address], [address] [place] [address] PCP - [facility] Attributed Provider 08/09/21 Dancing Master Relationship Specialty Start Date End Date Christ Gardiner DO [address] [facility], [address] [place] [address] PCP - General 05/19/06 Christ Gardiner DO [address] [facility], [address] [place] [address] PCP - [facility] Attributed Provider 05/10/22 Dancing Master Relationship Specialty Start Date End Date Saida Gardiner [address] [facility] [address] [place] [address] PCP - General Illustrator Set 10/10/22 Team Status: Active Member Role Status [...] Burgess MD Other Provider Active Melania Perez RN SURGICAL PCU, RN SURGICAL PCU-C Other Provider Active Team Status: Inactive Member [...] Burgess MD Other Provider Active Melania Perez RN SURGICAL PCU, RN SURGICAL PCU-C Other Provider Active Team Status: Active Member [...] MD Attending Provider, Referadan g Provider Active Dancing Master Relationship Specialty Start Date End Date Christ Gardiner DO [address] [facility], [address] [place] [address] PCP - General 05/19/06 Apple Aguilar, TOE FORMER STITCHDOWNS-CONDITIONING MACHINE OPERATOR [address] [facility] [address] [place] [address] PCP - [facility] Attributed Provider 08/09/21 Team Status: Inactive Member Role Status Dates Dr. Kam Ocampo Sr. , DO Primary Care Provider Active Start: January 26, 2024 End: January 26, 2024 aKm FUCHS MD Attending Provider Active S tart: [...] Provider Active Start: July 27, 2024 Dr. Thnah Mclaughlin , DO Other Provider Active St [...] Provider Active Start: July 28, 2024 Dr. aHyden Diaz , DO Admit Provider Active Start: [...] 02, 2024 End: August 05, 2024 Dr. Janien Harrison MD Referring Provider Active Start: August [...] Star t: August 04, 2024 Dr. Neymar Cunnnigham MD Other Provider Active Sta rt: August [...] Provider Active Start: July 25, 2024 Dr. Nyemar Cunningham MD Referring Provider Active Start: July [...] physician Active Start: July 25, 2024 Dr. Neyamr Cunningham MD Referring Provider Active Start: July [...] 24 hours. 09 (Given - Provider: Colette Sanedrs RN) 0830 (Given - Provider: Shannon Orantes, [...] BE BASED ON THE PRIMARY CLINICAL RECORDS. [employer]. provides no warranty or guarantee of the accuracy or completeness of information in this document.
--- NOTE | 2024-12-06 03:21 | ED.RN ---
REPORT PROVIDED TO [facility] NURSE, PRISCILA AT THIS TIME.
--- NOTE | 2024-12-06 05:55 | MRI_ITS ---
PROCEDURE: MRI BRAIN WITHOUT CONTRAST 12/06/2024 REASON FOR EXAM: STROKE TECHNIQUE: Procedure Code: MRIBR Modality: MR Procedure: BRAIN WITHOUT CONTRAST Multiplanar and multisequential MRI of the brain was performed without contrast. COMPARISON: CT head/angiography 12/05/2024. FINDINGS: No regions of abnormal restricted diffusion to indicate recent infarct. Moderate generalized brain parenchymal volume loss and chronic small-vessel ischemic-gliotic changes throughout the supratentorial white matter. Small foci of chronic lacunar infarct in the left cerebellar hemisphere. Major intracranial vascular flow voids appear grossly preserved. No evidence of acute intracranial hemorrhage, extra-axial collection, mass- effect, or other acute abnormality. Absent akhiok ocular lenses. Mild peripheral mucosal thickening throughout the paranasal sinuses. No mastoid effusions. MRI/Brain without Contrast IMPRESSION: No acute intracranial abnormality; no acute infarct. Moderate parenchymal volume loss and chronic microangiopathic changes. Reading Location: [id number]
[2024-12-06 06:58] LABS: Hematocrit 35.4 % (37-47); Hemoglobin 11.7 g/dL (12.0-15.0); Immature Granulocytes Count 0.010 X10^3/uL (0.0-0.0); Mean Corp Hgb Conc 33.1 g/dL (32-36); Mean Corpuscular Volume 98.9 fL (81-99); Mean Platelet Vol. 8.7 fl (6.2-12.0); NRBC Flagged by Analyzer 0 % (0-5); Platelet Count 210 K/mm3 (150-450); RBC Distribution Width CV 13.3 % (11.6-14.6); RBC Distribution Width SD 49.2 fl (35.1-43.9); Red Blood Count 3.58 M/mm3 (4.2-5.4); White Blood Count 5.9 K/mm3 (4.4-11.0)
[2024-12-06 07:15] LABS: Cholesterol 127 mg/dL (<=200); Low Density Lipoprotein Calc. 59 mg/dL; Triglycerides 82 mg/dL; Very Low Density Lipoprotein 16 mg/dL (5-40); cholesterol:hdl ratio screen 2.44
[2024-12-06 07:17] LABS: Anion Gap 10 (5-15); BUN 14 mg/dL (4-19); BUN/Creat Ratio 17.0 RATIO (10-20); Calcium,Total 9.5 mg/dL (7.6-11.0); Carbon Dioxide 26.6 mmol/L (21.0-32.0); Chloride 104 mmol/L (98-108); Estimated Creatinine Clearance 34.48 ml/min (50-250); Glucose 83 mg/dL (70-99); Potassium 3.8 mmol/L (3.3-5.1)
[2024-12-06] MEDS: buPROPion (XL) 150 MG TABLET.XL PO (09:15)
[2024-12-06] MEDS: Potassium Chloride Oral Tablet 20 MEQ PO (09:15)
[2024-12-06] MEDS: Lactobacillis Acidophilus 1 CAP PO (09:15)
[2024-12-06] MEDS: Cholecalciferol (Vit D3) 125 MCG CAPSULE (5,000 UNITS) PO (09:16)
[2024-12-06] MEDS: Ensure Clear 120 ML Liquid 240 ML PO (09:24)
[2024-12-06] MEDS: Fluticasone 0.05% 1 SPRAY NASAL.SRY NASAL (10:02)
[2024-12-06] MEDS: Azelastine HCl NASAL.SRY 1 SPRAY NASAL ×2 (10:02→22:30)
[2024-12-06] MEDS: Budesonide Respules 0.5 MG/2 ML AMPUL.NEB. INHALATION ×2 (12:20→19:50)
--- NOTE | 2024-12-06 13:22 | CASEMGMT ---
CINTHYA VILLALPANDO in to discuss discharge planning with patient, son at bedside. Patient wishes to return to [facility] at discharge. Patient and son had no further questions. PT and ST recommended at discharge. CINTHYA VILLALPANDO updated DC Transmission Rebuilder to update [facility]. CM will continue to follow this patient and plan for a safe discharge.
--- NOTE | 2024-12-06 13:50 | CASEMGMT ---
Discharge Planning Updates sent via [facility] to [facility] with note asking if pt will need precert to return. Awaiting response. Virginia Angel DC Planning Asst.
--- NOTE | 2024-12-06 14:28 | CHAPLAIN ---
Type of Pastoral Visit _x__ Initial Visit ___ Follow-up Visit ___ On-call Visit ___ General Patient Visit ___ Spiritual Assessment ___ Family Conference ___ Bereavement ___ Rapid Response ___ Code Blue ___ Other (describe below) Pastoral Care Referral From _x__ Patient ___ Family ___ Nurse ___ Physician ___ Measurement Department Chief Clerk ___ Gristmill Operator ___ Other (describe below) Sacrament/Intervention _x__ Active listening ___ Anointing ___ Hindu ___ Bereavement ___ Communion _x__ Charlette exploration ___ ___ Life review _x__ Prayer ___ Reconciliation ___ Sacrament of Sick _x__ Supportive presence ___ Wedding ___ Other (describe below) Pastoral Comments patient is reminded of previous admissions to the hospital and how she was treated; pt says that she was scared about coming to hospital and is feeling that way knowing that she will have to have an MRI done soon; pt is asked to consider spiritual truths, past experiences, and good people to help her thrive through this hospital stay; pt is pleasant and shows gratitude; pt's son is with her but does not engage in conversation;
--- NOTE | 2024-12-06 18:46 | PN.HOSP_ITS ---
Hospitalist Note Patient was seen and examined briefly today, she is a resident at the [facility], patient underwent an MRI today which did not show evidence of a stroke. We have not yet heard back from her nursing facility to see if the patient has to undergo pre-CERT to return there, it is unknown whether the nursing facility will want her to go back as a skilled patient. PT and OT will continue to work with the patient.
[2024-12-07] VITALS (9 sets, daily range): BP systolic 101–143; BP diastolic 56–65; PULSE 68–76; RESP 16–18; TEMP 36.2–36.7; O2SAT 92–97; BMI 20.1
[2024-12-07] MEDS: Budesonide Respules 0.5 MG/2 ML AMPUL.NEB. INHALATION (07:12)
[2024-12-07] MEDS: Azelastine HCl NASAL.SRY 1 SPRAY NASAL (08:40)
[2024-12-07] MEDS: Fluticasone 0.05% 1 SPRAY NASAL.SRY NASAL (08:41)
[2024-12-07] MEDS: Cholecalciferol (Vit D3) 125 MCG CAPSULE (5,000 UNITS) PO (08:43)
[2024-12-07] MEDS: Lactobacillis Acidophilus 1 CAP PO (08:43)
[2024-12-07] MEDS: buPROPion (XL) 150 MG TABLET.XL PO (08:43)
[2024-12-07] MEDS: Potassium Chloride Oral Tablet 20 MEQ PO (08:44)
[2024-12-07] MEDS: guaiFENesin 10 ML UDC (200MG/10ML) PO (08:49)
[2024-12-07] MEDS: Ensure Clear 120 ML Liquid 240 ML PO (08:54)
--- NOTE | 2024-12-07 08:57 | CASEMGMT ---
Social Work Per imaging pt negative for stroke, therefore PHQ9 not completed. TAMMY Bustillo
--- NOTE | 2024-12-07 10:28 | CASEMGMT ---
Discharge Planning Updates sent via [facility] to [facility] that pt will return today. Virginia Angel DC Planning Asst
--- NOTE | 2024-12-07 15:01 | PCM.TXEXTCAR ---
Diet Diet Order/Speech Therapy: INPATIENT Hospital Diet / Speech Therapy Order(s) 12/06/24 06:52 Diet: Cardiac - Heart Healthy Routine Orders/Code Status Code Status: DNRCC-A (No intubation) DC O2, CPAP, BIPAP needs Home O2 Discharge instructions: Yes Type of respiratory needs?: Oxygen Oxygen frequency: Continuous Continuous oxygen liters per minute: 2 L Therapies Weight Bearing: Full weight bearing Problem/Diagnosis (1) Dysarthria: Status: Acute Code(s): R47.1 - Dysarthria and anarthria (2) Stroke: Status: Acute Code(s): I63.9 - Cerebral infarction, unspecified Plan 1. Dysarthria-etiology unclear #2 chronic obstructive pulmonary disease #3 hyperlipidemia #4 chronic congestive heart failure with preserved ejection fraction #5 coronary artery disease #6 essential hypertension #7 chronic hypoxic respiratory failure #8 chronic anxiety/depression #9 moderate pulmonary hypertension Allergies/Procedures Done in Hospital Allergies cephalexin Allergy (Verified 12/05/24 22:31) PT UNSURE OF REACTION clarithromycin Allergy (Verified 12/05/24 22:31) PT UNSURE OF REACTION clindamycin Allergy (Verified 12/05/24 22:31) PT UNSURE OF REACTION doxazosin Allergy (Verified 12/05/24 22:31) NEEDS FOLLOW-UP erythromycin base Allergy (Verified 12/05/24 22:31) PT UNSURE OF REACTION eszopiclone Allergy (Verified 12/05/24 22:31) PT UNSURE OF REACTION Fish Containing Products (seafood) Allergy (Verified 12/05/24 22:31) PT UNSURE OF REACTION fish derived Allergy (Verified 12/05/24 22:31) PT UNSURE OF REACTION lincomycin Allergy (Verified 12/05/24 22:31) PT UNSURE OF REACTION lorazepam Allergy (Verified 12/05/24 22:31) PT UNSURE OF REACTION mushroom (mushrooms) Allergy (Verified 12/05/24 22:31) PT UNSURE OF REACTION NSAIDS (Non-Steroidal Anti-Inflamma Allergy (Verified 12/05/24 22:31) PT UNSURE OF REACTION Penicillins Allergy (Verified 12/05/24 22:31) PT UNSURE OF REACTION rofecoxib Allergy (Verified 12/05/24 22:31) PT UNSURE OF REACTION salicylates Allergy (Verified 12/05/24 22:31) PT UNSURE OF REACTION temazepam Allergy (Verified 12/05/24 22:31) PT UNSURE OF REACTION Tetracyclines Allergy (Verified 12/05/24 22:31) PT UNSURE OF REACTION trazodone Allergy (Verified 12/05/24 22:31) PT UNSURE OF REACTION Procedures: None Type of Care/Length of Stay Estimated LOS: More Than 30 Days Type of Care Needed: Intermediate Rehab Potential: Fair Prognosis: Fair Additional Orders/Day of Discharge H&P will serve as current which was dated: 12/06/24 Day of Discharge: 12/07/24 Dietary and Speech Recommendations Dietitian Recommendations/Changes: Liberalize diet to no added salt to optimize PO intake. Will consume ensure clear with medpass. Will monitor weight trends. Discharge Plan Admission Admit Date/Time: 12/06/24 02:16 Primary Reason for Your Visit: Dysarthria Attending Provider: Gomez Becker Primary Care Provider: Kam Ocampo Consulting Providers: Raul Fuentes Discharge Orders/Prescriptions Prescriptions: Continued Boost Breeze Nutritional 0.04-1.05 gram-kcal/mL liquid See Rx Instructions PO QAM Rx Instructions: 4oz orally every morning; calcium carbonate [Oyster Shell Calcium 500] 500 mg calcium (1,250 mg) tablet 500 mg PO QDAY emollient Cream topical Biofreeze (menthol) 5 % gel 1 ea topical BID PRN PRN (Reason: pain) bisacodyl 10 mg suppository 10 mg ND QDAY PRN (Reason: constipation) guaifenesin 100 mg/5 mL liquid 200 mg PO Q4H PRN (Reason: cough) loperamide [Anti-Diarrheal (loperamide)] 2 mg capsule 2 mg PO Q6H PRN (Reason: loose stool) Ensure Liquid 8 ml PO DAILY bupropion HCl 150 mg tablet extended release 24 hr 150 mg PO DAILY doxazosin [Cardura] 2 mg tablet 2 mg PO DAILY Fiber Gummies 2 gram tablet,chewable 5 g PO DAILY fluticasone propionate [24 Hour Allergy Relief] 50 mcg/actuation spray,suspension 1 spray intranasal DAILY Rx Instructions: administer into each nostril mirtazapine 30 mg tablet 30 mg PO QHS montelukast 10 mg tablet 10 mg PO QHS multivitamin [Daily Multi-Vitamin] Tablet 1 tab PO DAILY Ultimate Xuan Probiotic 30 billion cell capsule,delayed release(DR/EC) 1 cap PO DAILY azelastine 137 mcg (0.1 %) aerosol,spray 1 spray intranasal BID Rx Instructions: administer into each nostril gabapentin 600 mg tablet 600 mg PO BID metoprolol tartrate 25 mg tablet 25 mg PO BID atorvastatin 40 mg Tablet 40 mg PO QHS 20 Days Qty: 30 2RF isosorbide mononitrate 30 mg tablet extended release 24 hr 30 mg PO DAILY pantoprazole 40 mg tablet,delayed release (DR/EC) 40 mg PO DAILY potassium chloride 20 mEq tablet,ER particles/crystals 20 meq PO DAILY dicyclomine 10 mg capsule 10 mg PO TID acetaminophen 500 mg Tablet 1,000 mg PO Q8 Qty: 0 0RF Rx Instructions: 1 g every 8 hourly for 1 week and then 1 g every 8 hourly as needed for severe pain calcium carbonate 200 mg calcium (500 mg) Tablet,Chewable 500 mg PO TIDCM Qty: 0 0RF sennosides-docusate sodium [Stimulant Laxative Plus] 8.6-50 mg Tablet 2 tab PO BID Qty: 0 0RF polyethylene glycol 3350 [Miralax] 17 gram/dose powder 17 g PO BID 30 Days Qty: 1020 0RF Rx Instructions: Twice daily for 3 days and then once daily ascorbic acid (vitamin C) 500 mg tablet 500 mg PO BID Qty: 60 2RF cetirizine 5 mg tablet 5 mg PO DAILY ferrous sulfate 325 mg (65 mg iron) tablet 325 mg PO DAILY cholecalciferol (vitamin D3) [Vitamin D3] 125 mcg (5,000 unit) tablet 125 mcg PO DAILY budesonide 0.5 mg/2 mL suspension for nebulization 0.5 mg inhalation BID Patient Comments: [NO ORIGINAL SIG] ipratropium-albuterol 0.5 mg-3 mg(2.5 mg base)/3 mL solution for nebulization 3 ml inhalation BID Patient Comments: [NO ORIGINAL SIG] clopidogrel 75 mg tablet 75 mg PO DAILY furosemide 20 mg tablet 20 mg PO DAILY calcium carbonate-vitamin D3 [Oyster Shell Calcium-Vit D3] 500 mg-5 mcg (200 unit) tablet 1 tab PO BID multivitamin with folic acid [Daily-Carmelo (with folic acid)] 400 mcg tablet 1 tab PO DAILY nitroglycerin 0.4 mg tablet, sublingual 0.4 mg sublingual Q5M Rx Instructions: do not exceed 3 doses per episode OXYGEN - Supplemental ([facility] INFORMATIONAL USE ONLY) Patient Comments: pt states she uses 2L @ home. Has a CPAP with [facility]. O2 from [facility] [place]. Referrals / Follow Up: Kam Ocampo MD [Primary Care Provider, Medical] Disposition Disposition (needs filled in before D/C Order can be placed): NonSkilled NH/Intermed Care (2) Stroke Qualifiers: CVA mechanism: unspecified Qualified Code(s): I63.9 - Cerebral infarction, unspecified
--- NOTE | 2024-12-07 15:13 | DS.PCM_ITS ---
Providers Date of Admission: 12/06/24 Date of Discharge: 12/07/24 Primary Care Physician: Kam Ocampo MD Reason For Visit: POSSIBLE CVA, DYSARTHRIA Diagnosis Discharge Diagnosis (1) Dysarthria: Status: Acute Code(s): R47.1 - Dysarthria and anarthria (2) Stroke: Status: Acute Code(s): I63.9 - Cerebral infarction, unspecified Qualifiers: CVA mechanism: unspecified Qualified Code(s): I63.9 - Cerebral infarction, unspecified Plan 1. Dysarthria-etiology unclear #2 chronic obstructive pulmonary disease #3 hyperlipidemia #4 chronic congestive heart failure with preserved ejection fraction #5 coronary artery disease #6 essential hypertension #7 chronic hypoxic respiratory failure #8 chronic anxiety/depression #9 moderate pulmonary hypertension Medications at Discharge Home Medications Lactobacillus-Bifidobacterium 30 billion cell capsule,delayed release (Ultimate Xuan Probiotic) 1 cap PO DAILY 10/30/22 azelastine 137 mcg (0.1 %) nasal spray 1 spray intranasal BID nasal spray 10/30/22 bupropion HCl 150 mg 24 hr tablet, extended release 150 mg PO DAILY 10/30/22 doxazosin 2 mg tablet (Cardura) 2 mg PO DAILY 10/30/22 fluticasone propionate 50 mcg/actuation nasal spray,suspension (24 Hour Allergy Relief) 1 spray intranasal DAILY 10/30/22 food supplemt, lactose-reduced (Ensure oral liquid) 8 ml PO DAILY 10/30/22 gabapentin 600 mg tablet 600 mg PO BID 10/30/22 inulin 2 gram chewable tablet (Fiber Gummies) 5 g PO DAILY 10/30/22 metoprolol tartrate 25 mg tablet 25 mg PO BID 10/30/22 mirtazapine 30 mg tablet 30 mg PO QHS 10/30/22 montelukast 10 mg tablet 10 mg PO QHS 10/30/22 multivitamin (Daily Multi-Vitamin tablet) 1 tab PO DAILY 10/30/22 atorvastatin 40 mg tablet 40 mg PO QHS 20 days #30 tabs 11/02/22 dicyclomine 10 mg capsule 10 mg PO TID . 07/25/24 isosorbide mononitrate 30 mg tablet,extended release 24 hr 30 mg PO DAILY . 07/25/24 pantoprazole 40 mg tablet,delayed release 40 mg PO DAILY . 07/25/24 potassium chloride 20 mEq tablet,extended release(part/cryst) 20 meq PO DAILY . 07/25/24 acetaminophen 500 mg tablet 1,000 mg (2 x 500 mg) PO Q8 #0 tabs 07/28/24 ascorbic acid (vitamin C) 500 mg tablet 500 mg PO BID #60 tabs 07/28/24 calcium carbonate 500 mg (2.5 x 200 mg calcium (500 mg)) PO TIDCM #0 tabs 07/28/24 polyethylene glycol 3350 17 gram/dose oral powder (Miralax) 17 g PO BID 1 month #1,020 grams 07/28/24 sennosides 8.6 mg-docusate sodium 50 mg tablet (Stimulant Laxative Plus) 2 tab PO BID #0 tabs 07/28/24 budesonide 0.5 mg/2 mL suspension for nebulization 0.5 mg inhalation BID 08/02/24 cetirizine 5 mg tablet 5 mg PO DAILY 08/02/24 cholecalciferol (vitamin D3) 125 mcg (5,000 unit) tablet (Vitamin D3) 125 mcg PO DAILY 08/02/24 clopidogrel 75 mg tablet 75 mg PO DAILY blood thinner 08/02/24 ferrous sulfate 325 mg (65 mg iron) tablet 325 mg PO DAILY 08/02/24 ipratropium 0.5 mg-albuterol 3 mg (2.5 mg base)/3 mL nebulization soln 3 ml inhalation BID 08/02/24 bisacodyl 10 mg rectal suppository 10 mg MI QDAY PRN constipation 08/17/24 calcium carbonate (Oyster Shell Calcium 500) 500 mg PO QDAY 08/17/24 emollient applic topical 08/17/24 food supplemt, lactose-reduced 0.04 gram-1.05 kcal/mL oral liquid (Boost Breeze Nutritional) See Rx Instructions PO QAM 08/17/24 guaifenesin 100 mg/5 mL oral liquid 200 mg PO Q4H PRN cough 08/17/24 loperamide 2 mg capsule (Anti-Diarrheal (loperamide)) 2 mg PO Q6H PRN loose stool 08/17/24 menthol 5 % topical gel (Biofreeze (menthol)) 1 ea topical BID PRN PRN pain 08/17/24 OXYGEN - Supplemental ([facility] INFORMATIONAL USE ONLY) hypoxia 12/06/24 calcium 500 mg (as carbonate)-vitamin D3 5 mcg (200 unit) tablet (Oyster Shell Calcium-Vitamin D3) 1 tab PO BID 12/06/24 furosemide 20 mg tablet 20 mg PO DAILY 12/06/24 multivitamin with folic acid 400 mcg tablet (Daily-Carmelo (with folic acid)) 1 tab PO DAILY 12/06/24 nitroglycerin 0.4 mg sublingual tablet 0.4 mg sublingual Q5M 12/06/24 Hospital Course Operations None Procedures None Summary of Care Provided Minutes Spent on Discharge: 31 Hospital Course: This 89-year-old white female was seen in the emergency room at [facility] after being transported from a nursing facility with a complaint of dysarthria. Patient was found in the [facility] to have difficulty speaking and was sent to the ER for evaluation for possible stroke. By the time of her arrival in the ER, her symptoms had resolved and she was speaking normally. CT scan of the brain performed in the ER was negative for acute process, she did develop another episode of dysarthria after her CT scan however in the emergency room. Stroke team was called, patient was assigned an NIH score of 2, [facility] teleneurologist spoke with the ER physician and recommended that the patient be admitted for an MRI and no thrombolytic therapy was advised. CTA of the head and neck shows atherosclerosis without high-grade lesions. Patient was admitted to PCU and seen by PT, OT, and speech and an MRI was obtained of the brain which did not show an acute stroke. Patient had no speech difficulties in the hospital. On 12/07/2024, patient was seen and examined: On examination she appeared in good health and spirits, she does not appear to be in any distress. Vital signs as documented. Skin warm and dry and without overt rashes. Neck without JVD, thyroid appears normal, trachea is midline, neck is supple. Lungs clear, normal air movement was noted. Heart exam notable for regular rhythm, normal sounds and absence of murmurs, rubs or gallops. Abdomen unremarkable and without evidence of organomegaly, masses, or abdominal aortic enlargement, bowel sounds are present in all 4 quadrants, no abdominal tenderness was noted. Extremities nonedematous, no cyanosis was noted, no clubbing was noted. Neuro: Cranial nerves II through XII are grossly intact, no focal motor deficits were noted, sensation to light touch and pinprick is intact, motor exam 5/5 throughout. Psych: Patient is alert and oriented x3, she does not appear anxious or depressed, she does not appear agitated. Patient was discharged in stable condition back to her nursing facility on 12/07/2024 Weight / BMI Weight Weight: 46.8 kg Body Mass Index (BMI) 20.1 ABG / Lab / Microbiology Data 12/06/24 06:35 12/06/24 06:35 Radiography Diagnostic Testing: Radiology Impression Brain MRI 12/06/24 05:55 IMPRESSION: No acute intracranial abnormality; no acute infarct. Moderate parenchymal volume loss and chronic microangiopathic changes. Reading Location: [id number] D/C Instructions DC O2, CPAP, BIPAP Needs Home O2 Discharge instructions: Yes Type of respiratory needs?: Oxygen Oxygen frequency: Continuous Continuous oxygen liters per minute: 2 L DC home with Oxygen: Yes Home O2 Review: I have reviewed the oxygen testing, and the patient qualifies for home oxygen equipment and portability. The patient is mobile in the home and the community. Meaningful Use Info Meaningful Use Meaningful Use Diagnoses (Choose all that apply): None applicable Discharge Plan Admission Admit Date/Time: 12/06/24 02:16 Primary Reason for Your Visit: Dysarthria Attending Provider: Gomez Becker Primary Care Provider: Kam Ocampo Consulting Providers: Raul Fuentes Discharge Orders/Prescriptions Prescriptions: Continued Boost Breeze Nutritional 0.04-1.05 gram-kcal/mL liquid See Rx Instructions PO QAM Rx Instructions: 4oz orally every morning; calcium carbonate [Oyster Shell Calcium 500] 500 mg calcium (1,250 mg) tablet 500 mg PO QDAY emollient Cream topical Biofreeze (menthol) 5 % gel 1 ea topical BID PRN PRN (Reason: pain) bisacodyl 10 mg suppository 10 mg MI QDAY PRN (Reason: constipation) guaifenesin 100 mg/5 mL liquid 200 mg PO Q4H PRN (Reason: cough) loperamide [Anti-Diarrheal (loperamide)] 2 mg capsule 2 mg PO Q6H PRN (Reason: loose stool) Ensure Liquid 8 ml PO DAILY bupropion HCl 150 mg tablet extended release 24 hr 150 mg PO DAILY doxazosin [Cardura] 2 mg tablet 2 mg PO DAILY Fiber Gummies 2 gram tablet,chewable 5 g PO DAILY fluticasone propionate [24 Hour Allergy Relief] 50 mcg/actuation spray,suspension 1 spray intranasal DAILY Rx Instructions: administer into each nostril mirtazapine 30 mg tablet 30 mg PO QHS montelukast 10 mg tablet 10 mg PO QHS multivitamin [Daily Multi-Vitamin] Tablet 1 tab PO DAILY Ultimate Xuan Probiotic 30 billion cell capsule,delayed release(DR/EC) 1 cap PO DAILY azelastine 137 mcg (0.1 %) aerosol,spray 1 spray intranasal BID Rx Instructions: administer into each nostril gabapentin 600 mg tablet 600 mg PO BID metoprolol tartrate 25 mg tablet 25 mg PO BID atorvastatin 40 mg Tablet 40 mg PO QHS 20 Days Qty: 30 2RF isosorbide mononitrate 30 mg tablet extended release 24 hr 30 mg PO DAILY pantoprazole 40 mg tablet,delayed release (DR/EC) 40 mg PO DAILY potassium chloride 20 mEq tablet,ER particles/crystals 20 meq PO DAILY dicyclomine 10 mg capsule 10 mg PO TID acetaminophen 500 mg Tablet 1,000 mg PO Q8 Qty: 0 0RF Rx Instructions: 1 g every 8 hourly for 1 week and then 1 g every 8 hourly as needed for severe pain calcium carbonate 200 mg calcium (500 mg) Tablet,Chewable 500 mg PO TIDCM Qty: 0 0RF sennosides-docusate sodium [Stimulant Laxative Plus] 8.6-50 mg Tablet 2 tab PO BID Qty: 0 0RF polyethylene glycol 3350 [Miralax] 17 gram/dose powder 17 g PO BID 30 Days Qty: 1020 0RF Rx Instructions: Twice daily for 3 days and then once daily ascorbic acid (vitamin C) 500 mg tablet 500 mg PO BID Qty: 60 2RF cetirizine 5 mg tablet 5 mg PO DAILY ferrous sulfate 325 mg (65 mg iron) tablet 325 mg PO DAILY cholecalciferol (vitamin D3) [Vitamin D3] 125 mcg (5,000 unit) tablet 125 mcg PO DAILY budesonide 0.5 mg/2 mL suspension for nebulization 0.5 mg inhalation BID Patient Comments: [NO ORIGINAL SIG] ipratropium-albuterol 0.5 mg-3 mg(2.5 mg base)/3 mL solution for nebulization 3 ml inhalation BID Patient Comments: [NO ORIGINAL SIG] clopidogrel 75 mg tablet 75 mg PO DAILY furosemide 20 mg tablet 20 mg PO DAILY calcium carbonate-vitamin D3 [Oyster Shell Calcium-Vit D3] 500 mg-5 mcg (200 unit) tablet 1 tab PO BID multivitamin with folic acid [Daily-Carmelo (with folic acid)] 400 mcg tablet 1 tab PO DAILY nitroglycerin 0.4 mg tablet, sublingual 0.4 mg sublingual Q5M Rx Instructions: do not exceed 3 doses per episode OXYGEN - Supplemental ([facility] INFORMATIONAL USE ONLY) Patient Comments: pt states she uses 2L @ home. Has a CPAP with [facility]. O2 from [facility] [place]. Referrals / Follow Up: Kam Ocampo MD [Primary Care Provider, Medical] Disposition Disposition (needs filled in before D/C Order can be placed): NonSkilled NH/Intermed Care Charges/Coding Visit Charges Inpatient E&M: 79841 Disch Hosp >30min
--- NOTE | 2024-12-07 15:18 | PHA.DC_ITS ---
Pharmacy CT Med Reconciliation Pharmacy Service has performed discharge medication reconciliation for this patient. The patient's discharge medication list was reviewed for discrepancies and discrepancies were resolved. Medications at Discharge Home Medications Lactobacillus-Bifidobacterium 30 billion cell capsule,delayed release (Ultimate Xuan Probiotic) 1 cap PO DAILY 10/30/22 azelastine 137 mcg (0.1 %) nasal spray 1 spray intranasal BID nasal spray 10/30/22 bupropion HCl 150 mg 24 hr tablet, extended release 150 mg PO DAILY 10/30/22 doxazosin 2 mg tablet (Cardura) 2 mg PO DAILY 10/30/22 fluticasone propionate 50 mcg/actuation nasal spray,suspension (24 Hour Allergy Relief) 1 spray intranasal DAILY 10/30/22 food supplemt, lactose-reduced (Ensure oral liquid) 8 ml PO DAILY 10/30/22 gabapentin 600 mg tablet 600 mg PO BID 10/30/22 inulin 2 gram chewable tablet (Fiber Gummies) 5 g PO DAILY 10/30/22 metoprolol tartrate 25 mg tablet 25 mg PO BID 10/30/22 mirtazapine 30 mg tablet 30 mg PO QHS 10/30/22 montelukast 10 mg tablet 10 mg PO QHS 10/30/22 multivitamin (Daily Multi-Vitamin tablet) 1 tab PO DAILY 10/30/22 atorvastatin 40 mg tablet 40 mg PO QHS 20 days #30 tabs 11/02/22 dicyclomine 10 mg capsule 10 mg PO TID . 07/25/24 isosorbide mononitrate 30 mg tablet,extended release 24 hr 30 mg PO DAILY . 07/25/24 pantoprazole 40 mg tablet,delayed release 40 mg PO DAILY . 07/25/24 potassium chloride 20 mEq tablet,extended release(part/cryst) 20 meq PO DAILY . 07/25/24 acetaminophen 500 mg tablet 1,000 mg (2 x 500 mg) PO Q8 #0 tabs 07/28/24 ascorbic acid (vitamin C) 500 mg tablet 500 mg PO BID #60 tabs 07/28/24 calcium carbonate 500 mg (2.5 x 200 mg calcium (500 mg)) PO TIDCM #0 tabs 07/28/24 polyethylene glycol 3350 17 gram/dose oral powder (Miralax) 17 g PO BID 1 month #1,020 grams 07/28/24 sennosides 8.6 mg-docusate sodium 50 mg tablet (Stimulant Laxative Plus) 2 tab PO BID #0 tabs 07/28/24 budesonide 0.5 mg/2 mL suspension for nebulization 0.5 mg inhalation BID 08/02/24 cetirizine 5 mg tablet 5 mg PO DAILY 08/02/24 cholecalciferol (vitamin D3) 125 mcg (5,000 unit) tablet (Vitamin D3) 125 mcg PO DAILY 08/02/24 clopidogrel 75 mg tablet 75 mg PO DAILY blood thinner 08/02/24 ferrous sulfate 325 mg (65 mg iron) tablet 325 mg PO DAILY 08/02/24 ipratropium 0.5 mg-albuterol 3 mg (2.5 mg base)/3 mL nebulization soln 3 ml inhalation BID 08/02/24 bisacodyl 10 mg rectal suppository 10 mg DE QDAY PRN constipation 08/17/24 calcium carbonate (Oyster Shell Calcium 500) 500 mg PO QDAY 08/17/24 emollient applic topical 08/17/24 food supplemt, lactose-reduced 0.04 gram-1.05 kcal/mL oral liquid (Boost Breeze Nutritional) See Rx Instructions PO QAM 08/17/24 guaifenesin 100 mg/5 mL oral liquid 200 mg PO Q4H PRN cough 08/17/24 loperamide 2 mg capsule (Anti-Diarrheal (loperamide)) 2 mg PO Q6H PRN loose stool 08/17/24 menthol 5 % topical gel (Biofreeze (menthol)) 1 ea topical BID PRN PRN pain 08/17/24 OXYGEN - Supplemental ([facility] [place] INFORMATIONAL USE ONLY) hypoxia 12/06/24 calcium 500 mg (as carbonate)-vitamin D3 5 mcg (200 unit) tablet (Oyster Shell Calcium-Vitamin D3) 1 tab PO BID 12/06/24 furosemide 20 mg tablet 20 mg PO DAILY 12/06/24 multivitamin with folic acid 400 mcg tablet (Daily-Carmelo (with folic acid)) 1 tab PO DAILY 12/06/24 nitroglycerin 0.4 mg sublingual tablet 0.4 mg sublingual Q5M 12/06/24
--- NOTE | 2024-12-07 15:45 | CASEMGMT ---
Patient has order for discharge. Transfers to extended care and signed med list received. RN CM provided discharge paperwork to discharge capacity planning engineer to complete transport and update [facility] and [facility].
== END 2024-12-07 19:45 | disposition intermediate care facility (04) | DRG 92 ==
LOC: ED 12-06 02:06 → PCU 12-06 02:28
PROVIDERS: Admitting Provider Family Medicine; Emergency Provider Emergency Medicine; PCP Internal Medicine; Visit Provider Internal Medicine
DX: R47.1 Dysarthria and anarthria (principal); I50.32 Chronic diastolic (congestive) heart failure; J96.11 Chronic respiratory failure with hypoxia; I27.20 Pulmonary hypertension, unspecified; Z66 Do not resuscitate; J44.9 Chronic obstructive pulmonary disease, unspecified; I11.0 Hypertensive heart disease with heart failure; F32.A Depression, unspecified; I25.10 Atherosclerotic heart disease of native coronary artery without angina pectoris; F41.9 Anxiety disorder, unspecified; Z79.02 Long term (current) use of 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/antiplatelets; Z79.899 Other long term (current) drug therapy; Z86.73 Personal history of transient ischemic attack (TIA), and cerebral infarction without residual deficits
CPT/HCPCS: 36415; 70450; 70496; 70498; 70551; 80048; 80061; 81001; 82962; 83735; 85025; 85610; 85730; 92507; 94640; 94762; 96105; 97162; 97166; 97530; 97535; 97802; 99285; P9612; Q9967; A4216

== ENCOUNTER → 2024-12-12 06:15 | Outpatient (REF) | payer MEDICARE, OTHER, MEDICAID, SELFPAY ==
[2024-12-12 10:17] LABS: Cholesterol 109 mg/dL (<=200); Low Density Lipoprotein Calc. 49 mg/dL; Triglycerides 92 mg/dL; Very Low Density Lipoprotein 18 mg/dL (5-40); cholesterol:hdl ratio screen 2.60
== END ==
LOC: OLS.ACH 06:15
PROVIDERS: PCP Internal Medicine; Visit Provider Internal Medicine
DX: E78.5 Hyperlipidemia, unspecified (principal)
CPT/HCPCS: 36415; 80061